=== PATIENT | female | born 1940 | race Caucasian/White ===

== ENCOUNTER 2018-01-03 16:05 | Emergency (ER) | payer OTHER ==
[2018-01-03 17:19] LABS: Urine Blood NEGATIVE (NEG); Urine Glucose NEGATIVE (NEG); Urine Protein 1+ (NEG); Urine Specific Gravity 1.015 (1.005-1.030)
[2018-01-03 17:49] LABS: Absolute Lymphocytes (CBC) 1.7 K/uL (0.7-4.9); Absolute Monocytes 0.8 K/uL (0.1-1.3); Basophils % 1.2 % (0-1.3); Eosinophils % 6.4 % (0-4.4); Hematocrit 34.1 % (36.0-45.0); Lymphocytes % 20.7 % (15.3-44.8); MCH 27.3 pg (27.0-35.0); MCV 85.7 fL (80-100); MPV 8.6 fL (7.6-11.3); Monocytes % 9.8 % (3.3-12.3); RBC Red Blood Cell Count 3.98 M/uL (3.86-4.86)
[2018-01-03 17:51] LABS: Potassium 4.4 mEq/L (3.6-5.0)
[2018-01-03 17:52] LABS: Protime INR 1.01
--- NOTE | 2018-01-03 17:56 | RAD REPORT ---
EXAM DESCRIPTION: RAD - Chest Single View - 01/03/2018 5:37 pm CLINICAL HISTORY: Shortness of breath COMPARISON: 07/23/2017 FINDINGS: Portable technique limits examination quality. The lungs are underinflated but grossly clear. The heart is upper limit normal in size. No displaced fractures.Proximal left humerus hardware noted. IMPRESSION: No acute intrathoracic process suspected.
[2018-01-03 17:57] LABS: Albumin 3.8 g/dL (3.2-5.5); Bilirubin Direct 0.1 mg/dL (0-0.2); Bilirubin Total 0.9 mg/dL (0.3-1.2)
[2018-01-03 18:01] LABS: CKMB Creatine Kinase MB 2.2 ng/ml (0.3-4.0)
[2018-01-03 18:22] LABS: Arterial Blood Carboxyhemoglob 1.2 % (0-1.5); Blood Gas Oxyhemoglobin 91.8 % (94-97); Blood O2 Saturation 93.6 % (92-98.5)
[2018-01-03] MEDS ORDERED: ALBUTEROL 2.5 MG/3 ML NEB SOL ONE (18:26)
--- NOTE | 2018-01-03 19:05 | EKG ---
Test Date: 2018-01-03 Test Time: 17:42:54 [place] Edger: DAVEY MEASUREMENT RESULTS: Intervals: Rate: 53 MD: 250 QRSD: 114 QT: 480 QTc: 450 [place]orne: P: 65 MD: 250 QRS: -30 T: 14 INTERPRETIVE STATEMENTS: Sinus bradycardia with 1st degree AV block Left axis deviation Incomplete right bundle branch block Cannot rule out Anterior infarct, age undetermined Abnormal ECG Compared to ECG 10/02/2017 15:08:57 Incomplete right bundle-branch block now present Myocardial infarct finding now present Sinus rhythm no longer present Left ventricular hypertrophy no longer present Electronically Signed On 01-03-18 19:05:01 CDT by Sumanth Lucero
[2018-01-03] MEDS ORDERED: NA CHLORIDE 0.9% 500 ML ONE (19:45)
--- NOTE | 2018-01-03 20:19 | RAD REPORT ---
EXAM DESCRIPTION: CT - Chest For Pe Angio - 01/03/2018 8:04 pm CLINICAL HISTORY: Chest pain. Shortness of breath COMPARISON: 07/23/2017, 11/19/2011 TECHNIQUE: CT angiogram of the pulmonary arteries was performed with MIP. All CT scans are performed using dose optimization technique as appropriate and may include automated exposure control or mA/KV adjustment according to patient size. FINDINGS: No evidence of pulmonary thromboembolism. No acute aortic finding demonstrated. Moderate cardiomegaly is seen. The lungs are underinflated with subsegmental atelectasis both lung bases. No focal pulmonary infiltr ate suspected. No significant pericardial or pleural fluid. Hardware is present in the proximal left humerus. No acute fractures seen. IMPRESSION: No evidence of pulmonary thromboembolism. Underinflated lungs with subsegmental atelectasis in the lung bases.
[2018-01-03] MEDS ORDERED: FUROSEMIDE 20 MG/ 2ML VIAL ONE (21:24)
--- NOTE | 2018-01-03 22:37 | EDPHYS ---
Physician Documentation [facility] Name: Radha Bentley Age: 77 yrs Sex: Female : 1940 Arrival Date: 01/03/2018 Time: 16:08 Bed 27 Private MD: Villa Mann ED Physician Ady Cuellar HPI: 01/03 19:06 This 77 yrs old Female presents to ER via Ambulatory with complaints of snw Breathing Difficulty. 19:06 The patient has shortness of breath at rest, with light activity. Onset: The snw symptoms/episode began/occurred gradually, 2 week(s) ago, and became worse and became persistent. Duration: The symptoms are continuous. The patient's shortness of breath is aggravated by light activity. Associated signs and symptoms: Pertinent positives: lower extremity edema, HARDY, wheezing. Severity of symptoms: At their worst the symptoms were moderate. The patient has not experienced similar symptoms in the past. The patient has been recently seen by a physician: the patient's primary care provider, Dr. Mann with similar presenting complaints, taking HCTZ, continued s/s. Historical: - Allergies: 16:13 Avelox; hj 16:13 Band-aid adhesive; hj - Home Meds: 16:13 amlodipine 5 mg tab 1 tab once daily [Active]; donepezil 10 mg Oral tab 1 tab once hj daily [Active]; escitalopram oxalate 20 mg Oral tab 1 tab once daily [Active]; fenofibrate 150 mg Oral cap 1 cap once daily [Active]; levothyroxine 125 mcg tab 1 tab once daily [Active]; lovastatin 20 mg Oral tab 1 tab once daily [Active]; metoprolol tartrate 50 mg Oral tab once daily [Active]; omeprazole 40 mg Oral cpDR 1 cap once daily [Active]; ropinirole 2 mg Oral tab 1 tab twice a day [Active]; 16:13 Hydrochlorothiazide Oral [Active]; hj - PMHx: 16:13 Diverticulitis; Heart Murmur; Hyperlipidemia; Hypertension; Hypothyroidism; Pneumonia; hj - PSHx: 16:13 Hysterectomy; Knee surgery; shoulder surgery; Cholecystectomy; Appendectomy; breast hj reduction; - Immunization history:: Adult Immunizations up to date. - Social history:: Smoking status: Patient/guardian denies using tobacco, never smoked. ROS: 17:40 Constitutional: Negative for fever, chills, and weight loss, Eyes: Negative for injury, snw pain, redness, and discharge, ENT: Negative for injury, pain, and discharge, Neck: Negative for injury, pain, and swelling, Cardiovascular: Negative for chest pain, palpitations, and edema. 17:40 Back: Negative for injury and pain, : Negative for injury, bleeding, discharge, and swelling, MS/Extremity: Negative for injury and deformity, + edema Skin: Negative for injury, rash, and discoloration, Neuro: Negative for headache, weakness, numbness, tingling, and seizure. 17:40 Respiratory: Positive for dyspnea on exertion, shortness of breath, wheezing. 17:40 Abdomen/GI: Positive for bloating. Exam: 17:40 Head/Face: Normocephalic, atraumatic. Eyes: Pupils equal round and reactive to light, snw extra-ocular motions intact. Lids and lashes normal. Conjunctiva and sclera are non-icteric and not injected. Cornea within normal limits. Periorbital areas with no swelling, redness, or edema. ENT: Nares patent. No nasal discharge, no septal abnormalities noted. Tympanic membranes are normal and external auditory canals are clear. Oropharynx with no redness, swelling, or masses, exudates, or evidence of obstruction, uvula midline. Mucous membranes moist. Neck: Trachea midline, no thyromegaly or masses palpated, and no cervical lymphadenopathy. Supple, full range of motion without nuchal rigidity, or vertebral point tenderness. No Meningismus. Chest/axilla: Normal chest wall appearance and motion. Nontender with no deformity. No lesions are appreciated. 17:40 Back: No spinal tenderness. No costovertebral tenderness. Full range of motion. Skin: Warm, dry with normal turgor. Normal color with no rashes, no lesions, and no evidence of cellulitis. MS/ Extremity: Pulses equal, no cyanosis. Neurovascular intact. Full, normal range of motion. Neuro: Awake and alert, GCS 15, oriented to person, place, time, and situation. Cranial nerves II-XII grossly intact. Motor strength 5/5 in all extremities. Sensory grossly intact. Cerebellar exam normal. Normal gait. 17:40 Constitutional: The patient appears alert, awake, restless, uncomfortable. 17:40 Cardiovascular: Rate: normal, Rhythm: regular, Pulses: no pulse deficits are appreciated, Edema: 3+ edema to level of left ankle, left foot, right ankle and right foot. 17:40 Respiratory: mild respiratory distress is noted, Respirations: shallow respirations, tachypnea, Breath sounds: rhonchi, wheezing: HARDY. 17:40 Abdomen/GI: Inspection: obese Bowel sounds: normal, Palpation: abdomen is soft and non-tender. Vital Signs: 16:14 BP 160 / 66; Pulse 57; Resp 18; Temp 97.5(TE); Pulse Ox 98% on R/A; Weight 95.25 kg; hj Height 4 ft. 11 in. (149.86 cm); Pain 4/10; 17:21 BP 173 / 76; Pulse 62; Resp 18; Pulse Ox 100% on 2 lpm NC; tl3 18:13 BP 154 / 65; Pulse 50; Resp 18; Pulse Ox 98% on R/A; tl3 18:55 BP 184 / 74; Pulse 56; Resp 18; Pulse Ox 100% on 2 lpm NC; tl3 20:31 BP 168 / 83; Pulse 52; Resp 18; Pulse Ox 100% on 2 lpm NC; tl3 21:01 BP 172 / 63; Pulse 61; Resp 18; Pulse Ox 98% on 2 lpm NC; tl3 22:36 BP 137 / 81; Pulse 64; Resp 18; Pulse Ox 98% ; tl3 16:14 Body Mass Index 42.41 (95.25 kg, 149.86 cm) hj 18:13 placed on RA for the last 5 minutes or so to obtain ABG tl3 MDM: 16:39 Patient medically screened. snw 22:34 Data reviewed: vital signs, nurses notes. Data interpreted: Pulse oximetry: on 2L(s) snw per nasal canula, is 99 %. Interpretation: normal. Counseling: I had a detailed discussion with the patient and/or guardian regarding: the historical points, exam findings, and any diagnostic results supporting the discharge/admit diagnosis, the presence of at least one elevated blood pressure reading (>120/80) during this emergency department visit, lab results, radiology results, the need for outpatient follow up, to return to the emergency department if symptoms worsen or persist or if there are any questions or concerns that arise at home. Response to treatment: the patient's symptoms have markedly improved after treatment, the patient's condition has returned to base line. Special discussion: Based on the patient's history, exam and DX evaluation, there is no indication for emergent intervention or inpatient TX. It is understood by the patient/guardian that if the SXs persist or worsen they need to return immediately for re-evaluation. Based on the history and exam findings, there is no indication for further emergent testing or inpatient evaluation. I discussed with the patient/guardian the need to see the primary care provider for further evaluation of the symptoms. Medical screen evaluation completed. [facility] emergency medical condition absent. 22:40 ED course: Ambulated around ED with tech, Spo2 remains 100%. Pt states she is feeling snw much better.. 01/03 17:12 Order name: Basic Metabolic Panel; Complete Time: 18:01 snw 01/03 17:12 Order name: BNP; Complete Time: 18:01 snw 01/03 17:12 Order name: CBC with Diff; Complete Time: 18:01 snw 01/03 17:12 Order name: Ckmb; Complete Time: 18:01 snw 01/03 17:12 Order name: CPK; Complete Time: 18:01 snw 01/03 17:12 Order name: LFT's; Complete Time: 18:01 snw 01/03 17:12 Order name: Magnesium; Complete Time: 18:01 snw 01/03 17:12 Order name: PT-INR; Complete Time: 18:01 snw 01/03 17:12 Order name: Ptt, Activated; Complete Time: 18:01 snw 01/03 17:12 Order name: Troponin (emerg Dept Use Only); Complete Time: 18:01 snw 01/03 17:12 Order name: XRAY Chest (1 view); Complete Time: 18:01 snw 01/03 17:15 Order name: Urine Dipstick--Ancillary (enter results) ag 01/03 17:16 Order name: Urine Dipstick-Ancillary; Complete Time: 17:54 EDMS 01/03 17:55 Order name: ABG; Complete Time: 18:58 snw 01/03 17:12 Order name: EKG; Complete Time: 17:13 snw 01/03 17:12 Order name: Cardiac monitoring; Complete Time: 17:24 snw 01/03 17:12 Order name: EKG - Nurse/Tech; Complete Time: 17:24 snw 01/03 17:12 Order name: IV Saline Lock; Complete Time: 17:24 snw 01/03 17:12 Order name: Labs collected and sent; Complete Time: 17:24 snw 01/03 17:12 Order name: O2 Per Protocol; Complete Time: 17:24 snw 01/03 17:12 Order name: O2 Sat Monitoring; Complete Time: 17:24 snw 01/03 17:12 Order name: Urine Dipstick-Ancillary (obtain specimen); Complete Time: 17:25 snw 01/03 19:26 Order name: CT Chest For PE Angio; Complete Time: 20:26 snw 01/03 21:44 Order name: Misc. Order: ambulate with pt in hallway with pulse ox reading; Complete snw Time: 22:13 Administered Medications: 18:12 Drug: Albuterol 2.5 mg Route: Inhalation; tl3 18:56 Drug: Albuterol 2.5 mg Route: Inhalation; tl3 18:56 Follow up: Response: No adverse reaction tl3 19:32 Drug: Albuterol 2.5 mg Route: Inhalation; tl3 21:07 Follow up: Response: No adverse reaction tl3 21:07 Follow up: Response: No adverse reaction tl3 19:32 Drug: NS 0.9% 500 ml Volume: 500 ml; Route: IV; Rate: 1 bolus; Site: left wrist; tl3 Delivery: Primary tubing; 21:15 Follow up: IV Status: Completed infusion; IV Intake: 500ml tl3 21:06 Drug: Lasix 20 mg Route: IVP; Site: right wrist; tl3 23:12 Follow up: Response: No adverse reaction tl3 Disposition: 01/04 10:37 Co-signature as Attending Physician, Ady Cuellar MD I agree with the assessment and art plan of care. Disposition: 01/03/18 22:36 Discharged to Home. Impression: Fluid overload, Dyspnea, unspecified. - Condition is Stable. - Discharge Instructions: Shortness of Breath. - Prescriptions for Lasix 20 mg Oral Tablet - take 1 tablet by ORAL route 2 times per day; 6 tablet. Albuterol Sulfate 90 mcg/actuation - inhale 1-2 puff by INHALATION route every 4-6 hours; 1 Inhaler. - Medication Reconciliation Form, Thank You Letter, Antibiotic Education, Prescription Opioid Use form. - Follow up: Villa Mann MD; When: 2 - 3 days; Reason: Recheck today's complaints, Continuance of care, Re-evaluation by your physician. Follow up: Emergency Department; When: As needed; Reason: Trouble breathing, Worsening of condition. - Notes: Stop HCTZ. Albuterol 2 puffs every four hours x 1 week. Take Lasix in am and afternoon as directed. Follow up with Dr. Mann early next week. Return to ER for any worsening symptoms. Signatures: Dispatcher [employer] EDMS Ady Cuellar MD MD cha Therrien, Shelly, PLANT BREEDER SCIENTIST-C PLANT BREEDER SCIENTIST-Csnw Fernando Page, RN RN Dagmar Alva RN RN tl3
--- NOTE | 2018-01-03 22:37 | ER ---
Nurse's Notes [facility] Name: Radha Bentley Age: 77 yrs Sex: Female : 1940 Arrival Date: 01/03/2018 Time: 16:08 Bed 27 Private MD: Villa Mann Diagnosis: Fluid overload;Dyspnea, unspecified Presentation: 01/03 16:11 Presenting complaint: Patient states: lyle been having trouble breathing since last week hj and my feet and legs are swollen; i feel i have wheezing;. Transition of care: patient was not received from another setting of care. Onset of symptoms was January 03, 2018. Care prior to arrival: None. 16:11 Method Of Arrival: Ambulatory hj 16:11 Acuity: VAIBHAV 3 hj Triage Assessment: 16:13 General: Appears in no apparent distress. uncomfortable, Behavior is calm, cooperative, hj appropriate for age. Pain: Complains of pain in right leg and left leg. Respiratory: Reports shortness of breath Onset: The symptoms/episode began/occurred the patient has moderate shortness of breath. Historical: - Allergies: 16:13 Avelox; hj 16:13 Band-aid adhesive; hj - Home Meds: 16:13 amlodipine 5 mg tab 1 tab once daily [Active]; donepezil 10 mg Oral tab 1 tab once hj daily [Active]; escitalopram oxalate 20 mg Oral tab 1 tab once daily [Active]; fenofibrate 150 mg Oral cap 1 cap once daily [Active]; levothyroxine 125 mcg tab 1 tab once daily [Active]; lovastatin 20 mg Oral tab 1 tab once daily [Active]; metoprolol tartrate 50 mg Oral tab once daily [Active]; omeprazole 40 mg Oral cpDR 1 cap once daily [Active]; ropinirole 2 mg Oral tab 1 tab twice a day [Active]; 16:13 Hydrochlorothiazide Oral [Active]; hj - PMHx: 16:13 Diverticulitis; Heart Murmur; Hyperlipidemia; Hypertension; Hypothyroidism; Pneumonia; hj - PSHx: 16:13 Hysterectomy; Knee surgery; shoulder surgery; Cholecystectomy; Appendectomy; breast hj reduction; - Immunization history:: Adult Immunizations up to date. - Social history:: Smoking status: Patient/guardian denies using tobacco, never smoked. Screenin:21 Abuse screen: Denies threats or abuse. Nutritional screening: No deficits noted. tl3 Tuberculosis screening: No symptoms or risk factors identified. Fall Risk None identified. Assessment: 16:14 Cardiovascular: Rhythm is. Respiratory: Airway is patent Respiratory effort is labored, hj Respiratory pattern is regular, symmetrical, 16:45 General: Appears distressed, uncomfortable, well groomed, well developed, well tl3 nourished, Behavior is calm, cooperative, appropriate for age. Pain: Complains of pain in right leg and left leg. Neuro: Level of Consciousness is awake, alert, obeys commands, Oriented to person, place, time, situation, Appropriate for age. Cardiovascular: Reports shortness of breath, Heart tones S1 S2 present Capillary refill < 3 seconds in bilateral fingers bilateral leg swelling . Respiratory: Airway is patent Trachea midline Respiratory effort is even, labored, Respiratory pattern is symmetrical, Breath sounds with wheezes bilaterally. the patient has moderate shortness of breath. GI: No signs and/or symptoms were reported involving the gastrointestinal system. : No signs and/or symptoms were reported regarding the genitourinary system. EENT: No signs and/or symptoms were reported regarding the EENT system. Derm: No signs and/or symptoms reported regarding the dermatologic system. Musculoskeletal: No signs and/or symptoms reported regarding the musculoskeletal system. 18:13 Reassessment: No changes from previously documented assessment. Patient and/or family tl3 updated on plan of care and expected duration. Pain level reassessed. Patient is alert, oriented x 3, equal unlabored respirations, skin warm/dry/pink. resp. at bedside to obtain blood gas. 18:55 Reassessment: No changes from previously documented assessment. Patient and/or family tl3 updated on plan of care and expected duration. Pain level reassessed. Patient is alert, oriented x 3, equal unlabored respirations, skin warm/dry/pink. pt ambulated to RR, started second neb. 19:58 Reassessment: pt in CT needed another IV started. tl3 20:31 Reassessment: No changes from previously documented assessment. Patient and/or family tl3 updated on plan of care and expected duration. Pain level reassessed. Patient is alert, oriented x 3, equal unlabored respirations, skin warm/dry/pink. pt was feeling short of breath after going to the restroom, audible wheezing noted. 21:01 Reassessment: No changes from previously documented assessment. Patient and/or family tl3 updated on plan of care and expected duration. Pain level reassessed. Patient is alert, oriented x 3, equal unlabored respirations, skin warm/dry/pink. pt ambulated to RR, SOB and wheezing upon returning to room. 21:31 Reassessment: pt up to restroom. tl3 22:36 Reassessment: No changes from previously documented assessment. Patient and/or family tl3 updated on plan of care and expected duration. Pain level reassessed. Patient is alert, oriented x 3, equal unlabored respirations, skin warm/dry/pink. pt ambulated around unit, pulse ox stayed at 98-100%. Vital Signs: 16:14 BP 160 / 66; Pulse 57; Resp 18; Temp 97.5(TE); Pulse Ox 98% on R/A; Weight 95.25 kg; hj Height 4 ft. 11 in. (149.86 cm); Pain 4/10; 17:21 BP 173 / 76; Pulse 62; Resp 18; Pulse Ox 100% on 2 lpm NC; tl3 18:13 BP 154 / 65; Pulse 50; Resp 18; Pulse Ox 98% on R/A; tl3 18:55 BP 184 / 74; Pulse 56; Resp 18; Pulse Ox 100% on 2 lpm NC; tl3 20:31 BP 168 / 83; Pulse 52; Resp 18; Pulse Ox 100% on 2 lpm NC; tl3 21:01 BP 172 / 63; Pulse 61; Resp 18; Pulse Ox 98% on 2 lpm NC; tl3 22:36 BP 137 / 81; Pulse 64; Resp 18; Pulse Ox 98% ; tl3 16:14 Body Mass Index 42.41 (95.25 kg, 149.86 cm) hj 18:13 placed on RA for the last 5 minutes or so to obtain ABG tl3 ED Course: 16:08 Patient arrived in ED. mr 16:09 Villa Mann MD is Private Physician. mr 16:11 Triage completed. hj 16:14 Arm band placed on left wrist. hj 16:39 Mariela Mayorga FNP-C [facility]. snw 16:39 Ady Cuellar MD is Attending Physician. snw 17:16 Dagmar Ramirez, RN is Primary Nurse. tl3 17:21 Awaiting lab results, Awaiting for x-ray. tl3 17:21 Patient has correct armband on for positive identification. Placed in gown. Bed in low tl3 position. Call light in reach. Side rails up X2. Door closed. Lights dimmed. Warm blanket given. 17:21 No provider procedures requiring assistance completed. Inserted saline lock: 22 gauge tl3 in right wrist, using aseptic technique. Oxygen administration via nasal cannula \T\ 2L/min. 17:25 Urine Dipstick--Ancillary (enter results) Sent. tl3 17:25 XRAY Chest (1 view) Sent. tl3 17:35 X-ray completed. Portable x-ray completed in exam room. Patient tolerated procedure ag1 well. 17:36 XRAY Chest (1 view) In Process Unspecified. EDMS 17:48 EKG done, by insulator technician. reviewed by Mariela BORGES. at1 19:[address] via wheelchair. tl3 19:42 classroom monitor on. Pulse ox on. NIBP on. tl3 19:58 Inserted saline lock: 22 gauge in left antecubital area, using aseptic technique. tl3 20:04 CT Chest For PE Angio In Process Unspecified. EDMS 22:36 Villa Mann MD is Referral Physician. snw 23:10 IV discontinued, intact, bleeding controlled, No redness/swelling at site. Pressure tl3 dressing applied. Administered Medications: 18:12 Drug: Albuterol 2.5 mg Route: Inhalation; tl3 18:56 Drug: Albuterol 2.5 mg Route: Inhalation; tl3 18:56 Follow up: Response: No adverse reaction tl3 19:32 Drug: Albuterol 2.5 mg Route: Inhalation; tl3 21:07 Follow up: Response: No adverse reaction tl3 21:07 Follow up: Response: No adverse reaction tl3 19:32 Drug: NS 0.9% 500 ml Volume: 500 ml; Route: IV; Rate: 1 bolus; Site: left wrist; tl3 Delivery: Primary tubing; 21:15 Follow up: IV Status: Completed infusion; IV Intake: 500ml tl3 21:06 Drug: Lasix 20 mg Route: IVP; Site: right wrist; tl3 23:12 Follow up: Response: No adverse reaction tl3 Intake: 21:15 IV: 500ml; Total: 500ml. tl3 Outcome: 22:36 Discharge ordered by MD. hanley 23:10 Discharged to home ambulatory. tl3 23:10 Condition: good 23:10 Discharge instructions given to patient, Instructed on discharge instructions, follow up and referral plans. medication usage, Demonstrated understanding of instructions, follow-up care, medications, Prescriptions given X 1. 23:12 Patient left the ED. tl3 Signatures: Dispatcher [employer] EDMS Mariela Mayorga, REGRINDER-C REGRINDER-Csnw Deanna Bess Alison diaz, emergency response officer EKG Tat1 Bernadine Patel ag1 Fernando Page RN RN Dagmar Alva, ALAN RN tl3 Corrections: (The following items were deleted from the chart) 16:16 16:14 Respiratory: Airway is patent Respiratory effort is labored, Respiratory pattern hj is regular, symmetrical, Breath sounds with wheezes hj 16:16 16:14 Pulse 57bpm; Resp 18bpm; Pulse Ox 98% RA; Temp 97.5F Temporal; 95.25 kg; Height 4 hj ft. 11 in.; BMI: 42.4; Pain 4/10; hj
[2018-01-03 23:18] VITALS: TEMP 97.5
[2018-01-03 23:24] VITALS: O2SAT 98
[2018-01-03 23:25] VITALS: BP 137/81
== END 2018-01-03 23:12 | disposition home or self-care (01) ==
LOC: ER 16:05
DX: E87.70 Fluid overload, unspecified (principal); I10 Essential (primary) hypertension; E78.5 Hyperlipidemia, unspecified; E03.9 Hypothyroidism, unspecified; R01.1 Cardiac murmur, unspecified; Z88.8 Allergy status to other drugs, medicaments and biological substances; Z91.048 Other nonmedicinal substance allergy status
CPT/HCPCS: 36415; 71045; 71275; 80048; 80076; 81003; 82550; 82553; 82805; 83735; 83880; 84484; 85025; 85610; 85730; 93005; 96361; 96374; 99285; J1940; Q9967

== ENCOUNTER 2018-08-12 16:29 | Emergency (ER) | payer OTHER ==
[2018-08-12] MEDS ORDERED: NA CHLORIDE 0.9% 1,000 ML ONE (17:24)
[2018-08-12 17:35] LABS: Absolute Lymphocytes (CBC) 1.2 K/uL (0.7-4.9); Absolute Monocytes 0.6 K/uL (0.1-1.3); Absolute Neutrophil 5.3 K/uL (1.8-8.0); Basophils % 0.3 % (0-1.3); Eosinophils % 5.2 % (0-4.4); Hematocrit 36.7 % (36.0-45.0); Lymphocytes % 16.4 % (15.3-44.8); MCH 28.4 pg (27.0-35.0); MCV 86.8 fL (80-100); MPV 7.9 fL (7.6-11.3); Monocytes % 8.3 % (3.3-12.3); RBC Red Blood Cell Count 4.22 M/uL (3.86-4.86)
[2018-08-12 17:36] LABS: Protime INR 0.94
--- NOTE | 2018-08-12 17:40 | RAD REPORT ---
EXAM DESCRIPTION: Vishnu Single View08/12/2018 5:29 pm CLINICAL HISTORY: cough COMPARISON: December 2017 FINDINGS: The lungs appear clear of acute infiltrate. The heart is normal size IMPRESSION: No acute abnormalities displayed
[2018-08-12 17:55] LABS: ALT/SGPT 26 U/L (12-78); AST/SGOT 21 U/L (15-37); Albumin 3.3 g/dL (3.4-5.0); Alkaline Phosphatase 85 U/L (45-117); BUN Blood Urea Nitrogen 17 mg/dL (7-18); Bicarbonate 28 mmol/L (21-32); Bilirubin Direct 0.1 mg/dL (0-0.2); Bilirubin Total 0.4 mg/dL (0.2-1.0); Glucose Level 95 mg/dL (74-106); Lipase 156 U/L (73-393); Magnesium 2.3 mg/dL (1.8-2.4); NT PRO-BNP 864 pg/mL (<450); Potassium 3.9 mmol/L (3.5-5.1); Protein, Total 6.8 g/dL (6.4-8.2); Sodium Level 144 mmol/L (136-145); Troponin (Emerg Dept Use Only) < 0.02 ng/mL (0.0-0.045)
--- NOTE | 2018-08-12 19:48 | EDPHYS ---
Physician Documentation [facility] Name: Radha Bentley Age: 77 yrs Sex: Female : 1940 Arrival Date: 08/12/2018 Time: 16:32 Bed 8 Private MD: Villa Mann ED Physician Ady Cuellar HPI: 08/12 17:11 This 77 yrs old Female presents to ER via Wheelchair with complaints of art SHAKINESS,LIGHTHEADED. 17:11 shakey inside and outside. Onset: The symptoms/episode began/occurred 1 day(s) ago. art Severity of symptoms: At their worst the symptoms were very mild mild in the emergency department the symptoms are unchanged. Unable to obtain HPI due to. The patient has not experienced similar symptoms in the past. Historical: - Allergies: 16:42 Avelox; sv 16:42 Band-aid adhesive; sv - PMHx: 16:42 Diverticulitis; Hypothyroidism; Hypertension; Heart Murmur; Pneumonia; Hyperlipidemia; sv - PSHx: 16:42 Hysterectomy; Knee surgery; Cholecystectomy; Appendectomy; shoulder surgery; breast sv reduction; - Immunization history:: Flu vaccine is up to date. - Social history:: Smoking status: Patient/guardian denies using tobacco. - Ebola Screening: : No symptoms or risks identified at this time. - Family history:: not pertinent. ROS: 17:11 Constitutional: Negative for fever, chills, and weight loss, Eyes: Negative for injury, art pain, redness, and discharge, ENT: Negative for injury, pain, and discharge, Neck: Negative for injury, pain, and swelling, Cardiovascular: Negative for chest pain, palpitations, and edema, Respiratory: Negative for shortness of breath, cough, wheezing, and pleuritic chest pain, Abdomen/GI: Negative for abdominal pain, nausea, vomiting, diarrhea, and constipation, Back: Negative for injury and pain, : Negative for injury, bleeding, discharge, and swelling, MS/Extremity: Negative for injury and deformity, Skin: Negative for injury, rash, and discoloration, Psych: Negative for depression, anxiety, suicide ideation, homicidal ideation, and hallucinations, Allergy/Immunology: Negative for hives, rash, and allergies, Endocrine: Negative for neck swelling, polydipsia, polyuria, polyphagia, and marked weight changes, Hematologic/Lymphatic: Negative for swollen nodes, abnormal bleeding, and unusual bruising. 17:11 Neuro: Positive for weakness. Exam: 17:11 Constitutional: This is a well developed, well nourished patient who is awake, alert, art and in no acute distress. Head/Face: Normocephalic, atraumatic. Eyes: Pupils equal round and reactive to light, extra-ocular motions intact. Lids and lashes normal. Conjunctiva and sclera are non-icteric and not injected. Cornea within normal limits. Periorbital areas with no swelling, redness, or edema. ENT: Nares patent. No nasal discharge, no septal abnormalities noted. Tympanic membranes are normal and external auditory canals are clear. Oropharynx with no redness, swelling, or masses, exudates, or evidence of obstruction, uvula midline. Mucous membranes moist. Neck: Trachea midline, no thyromegaly or masses palpated, and no cervical lymphadenopathy. Supple, full range of motion without nuchal rigidity, or vertebral point tenderness. No Meningismus. Chest/axilla: Normal chest wall appearance and motion. Nontender with no deformity. No lesions are appreciated. Cardiovascular: Regular rate and rhythm with a normal S1 and S2. No gallops, murmurs, or rubs. Normal PMI, no JVD. No pulse deficits. Respiratory: Lungs have equal breath sounds bilaterally, clear to auscultation and percussion. No rales, rhonchi or wheezes noted. No increased work of breathing, no retractions or nasal flaring. Abdomen/GI: Soft, non-tender, with normal bowel sounds. No distension or tympany. No guarding or rebound. No evidence of tenderness throughout. Back: No spinal tenderness. No costovertebral tenderness. Full range of motion. Skin: Warm, dry with normal turgor. Normal color with no rashes, no lesions, and no evidence of cellulitis. MS/ Extremity: Pulses equal, no cyanosis. Neurovascular intact. Full, normal range of motion. Neuro: Awake and alert, GCS 15, oriented to person, place, time, and situation. Cranial nerves II-XII grossly intact. Motor strength 5/5 in all extremities. Sensory grossly intact. Cerebellar exam normal. Normal gait. Psych: Awake, alert, with orientation to person, place and time. Behavior, mood, and affect are within normal limits. 19:47 Musculoskeletal/extremity: DVT Exam: No signs of deep vein thrombosis. no pain, no art swelling, no tenderness, negative Homans' sign noted on exam, no appreciated bluish discoloration, no erythema, no increased warmth. Vital Signs: 16:43 BP 144 / 92; Pulse 69; Resp 18; Temp 98.9; Pulse Ox 95% ; Weight 90.72 kg; Height 4 ft. sv 11 in. (149.86 cm); Pain 0/10; 18:19 BP 157 / 71; Pulse 66; Resp 17; Pulse Ox 100% on R/A; hb 19:20 BP 136 / 68 Supine; Pulse 66; jd3 19:22 BP 155 / 68 Sitting; Pulse 68; jd3 19:24 BP 146 / 77 Standing; Pulse 67; Resp 19 S; Pulse Ox 95% on R/A; jd3 16:43 Body Mass Index 40.39 (90.72 kg, 149.86 cm) sv MDM: 16:47 Patient medically screened. [facility] 17:13 Data reviewed: vital signs, nurses notes, lab test result(s), EKG, radiologic studies, [facility] plain films. 08/12 17:11 Order name: Basic Metabolic Panel; Complete Time: 19:27 [facility] 08/12 17:11 Order name: CBC with Diff; Complete Time: 19:27 [facility] 08/12 17:11 Order name: LFT's; Complete Time: 19:27 [facility] 08/12 17:11 Order name: Magnesium; Complete Time: 19:27 [facility] 08/12 17:11 Order name: NT PRO-BNP; Complete Time: 19:27 [facility] 08/12 17:11 Order name: PT-INR; Complete Time: 19:27 [facility] 08/12 17:11 Order name: Troponin (emerg Dept Use Only); Complete Time: 19:27 [facility] 08/12 17:11 Order name: XRAY Chest (1 view); Complete Time: 19:27 [facility] 08/12 17:11 Order name: EKG; Complete Time: 17:12 [facility] 08/12 17:11 Order name: Lipase; Complete Time: 19:27 [facility] 08/12 17:11 Order name: Urine Culture [facility] 08/12 20:06 Order name: Urine Dipstick--Ancillary (enter results) em1 08/12 17:11 Order name: Cardiac monitoring; Complete Time: 17:30 [facility] 08/12 17:11 Order name: EKG - Nurse/Tech; Complete Time: 17:30 [facility] 08/12 17:11 Order name: IV Saline Lock; Complete Time: 17:30 [facility] 08/12 17:11 Order name: Labs collected and sent; Complete Time: 17:30 [facility] 08/12 17:11 Order name: O2 Per Protocol; Complete Time: 17:30 [facility] 08/12 17:11 Order name: O2 Sat Monitoring; Complete Time: 17:30 [facility] 08/12 17:11 Order name: Urine Dipstick-Ancillary (obtain specimen); Complete Time: 20:05 [facility] 08/12 17:13 Order name: Orthostatics; Complete Time: 19:27 [facility] Administered Medications: 17:29 Drug: NS 0.9% 500 ml Route: IV; Rate: bolus; Site: right forearm; bp 20:26 Follow up: IV Status: Completed infusion ak1 17:29 Drug: NS 0.9% 1000 ml Route: IV; Rate: 125 ml/hr; Site: right forearm; bp 20:26 Follow up: IV Status: Completed infusion ak1 Disposition: 08/12/18 19:48 Discharged to Home. Impression: Weakness. - Condition is Stable. - Discharge Instructions: Weakness, Fatigue, Weakness, [id number]. - Medication Reconciliation Form, Thank You Letter, Antibiotic Education, Prescription Opioid Use form. - Follow up: Villa Mann MD; When: 2 - 3 days; Reason: Recheck today's complaints, Continuance of care, Re-evaluation by your physician. - Problem is new. - Symptoms have improved. Signatures: Dispatcher [employer] Stefania Cummings RN Ady Arvizu MD MD cha Krenek, Amber, RN RN ak1 Anatoly Castillo RN RN bp Corrections: (The following items were deleted from the chart) 20:30 19:48 08/12/2018 19:48 Discharged to Home. Impression: Weakness. Condition is Stable. ak1 Forms are Medication Reconciliation Form, Thank You Letter, Antibiotic Education, Prescription Opioid Use. Follow up: Villa Mann; When: 2 - 3 days; Reason: Recheck today's complaints, Continuance of care, Re-evaluation by your physician. Problem is new. Symptoms have improved. [facility]
--- NOTE | 2018-08-12 19:48 | ER ---
Nurse's Notes [facility] Name: Radha Bentley Age: 77 yrs Sex: Female : 1940 Arrival Date: 08/12/2018 Time: 16:32 Bed 8 Private MD: Villa Mann Diagnosis: Weakness Presentation: 08/12 16:41 Presenting complaint: Patient states: shaking and lightheaded x 2 days. Transition of sv care: patient was not received from another setting of care. Onset of symptoms was August 10, 2018. Care prior to arrival: None. 16:41 Method Of Arrival: Wheelchair sv 16:41 Acuity: VAIBHAV 3 sv 20:05 Risk Assessment: Do you want to hurt yourself or someone else? Patient reports no ak1 desire to harm self or others. Initial Sepsis Screen: Does the patient meet any 2 criteria? No. Patient's initial sepsis screen is negative. Does the patient have a suspected source of infection? No. Patient's initial sepsis screen is negative. Historical: - Allergies: 16:42 Avelox; sv 16:42 Band-aid adhesive; sv - PMHx: 16:42 Diverticulitis; Hypothyroidism; Hypertension; Heart Murmur; Pneumonia; Hyperlipidemia; sv - PSHx: 16:42 Hysterectomy; Knee surgery; Cholecystectomy; Appendectomy; shoulder surgery; breast sv reduction; - Immunization history:: Flu vaccine is up to date. - Social history:: Smoking status: Patient/guardian denies using tobacco. - Ebola Screening: : No symptoms or risks identified at this time. - Family history:: not pertinent. Screenin:33 Abuse screen: Denies threats or abuse. Denies injuries from another. Nutritional bp screening: No deficits noted. Tuberculosis screening: No symptoms or risk factors identified. Fall Risk None identified. Assessment: 17:31 General: Appears in no apparent distress. comfortable, Behavior is cooperative, bp appropriate for age, anxious. Pain: Denies pain. Neuro: Level of Consciousness is awake, alert, obeys commands, Oriented to person, place, time, situation, Appropriate for age. Cardiovascular: Rhythm is sinus rhythm. Respiratory: Airway is patent Respiratory effort is even, unlabored, Respiratory pattern is regular, symmetrical. GI: No signs and/or symptoms were reported involving the gastrointestinal system. : No signs and/or symptoms were reported regarding the genitourinary system. EENT: No deficits noted. Derm: No deficits noted. Musculoskeletal: Circulation, motion, and sensation intact. Range of motion: intact in all extremities. 18:19 Reassessment: Patient appears in no apparent distress at this time. No changes from hb previously documented assessment. Patient and/or family updated on plan of care and expected duration. Pain level reassessed. Patient is alert, oriented x 3, equal unlabored respirations, skin warm/dry/pink. 19:24 Reassessment: Patient appears in no apparent distress at this time. No changes from jd3 previously documented assessment. Patient and/or family updated on plan of care and expected duration. Pain level reassessed. Patient is alert, oriented x 3, equal unlabored respirations, skin warm/dry/pink. 20:25 Reassessment: pt ambulated to restroom with steady gait. ak1 Vital Signs: 16:43 BP 144 / 92; Pulse 69; Resp 18; Temp 98.9; Pulse Ox 95% ; Weight 90.72 kg; Height 4 ft. sv 11 in. (149.86 cm); Pain 0/10; 18:19 BP 157 / 71; Pulse 66; Resp 17; Pulse Ox 100% on R/A; hb 19:20 BP 136 / 68 Supine; Pulse 66; jd3 19:22 BP 155 / 68 Sitting; Pulse 68; jd3 19:24 BP 146 / 77 Standing; Pulse 67; Resp 19 S; Pulse Ox 95% on R/A; jd3 16:43 Body Mass Index 40.39 (90.72 kg, 149.86 cm) sv ED Course: 16:32 Patient arrived in ED. sb2 16:33 Villa Mann MD is Private Physician. sb2 16:42 Triage completed. sv 16:43 Arm band placed on. sv 16:45 Anatoly Castillo, ALAN is Primary Nurse. bp 16:47 Ady Cuellar MD is Attending Physician. art 17:24 EKG done, by vein access technician. reviewed by Ady Cuellar MD. sm3 17:27 X-ray completed. Portable x-ray completed in exam room. Patient tolerated procedure jb2 well. 17:28 XRAY Chest (1 view) In Process Unspecified. EDMS 17:30 Inserted saline lock: 22 gauge in right forearm, using aseptic technique. Blood bp collected. 17:33 Patient has correct armband on for positive identification. Placed in gown. Bed in low bp position. Call light in reach. Side rails up X2. 19:47 Villa Mann MD is Referral Physician. [facility] 20:05 No provider procedures requiring assistance completed. IV discontinued, intact, ak1 bleeding controlled, No redness/swelling at site. Pressure dressing applied. Administered Medications: 17:29 Drug: NS 0.9% 500 ml Route: IV; Rate: bolus; Site: right forearm; bp 20:26 Follow up: IV Status: Completed infusion ak1 17:29 Drug: NS 0.9% 1000 ml Route: IV; Rate: 125 ml/hr; Site: right forearm; bp 20:26 Follow up: IV Status: Completed infusion ak1 Outcome: 19:48 Discharge ordered by . [facility] 20:06 Discharged to home ambulatory. ak1 20:06 Condition: good 20:06 Discharge instructions given to patient, Instructed on discharge instructions, follow up and referral plans. Demonstrated understanding of instructions, follow-up care. 20:30 Patient left the ED. ak1 Signatures: Dispatcher [employer] EDStefania Cummings RN Ady Arvizu MD MD cha Buechter, Jesse jb2 Suzan Romero RN RN ak1 Mesha Herrera RN RN hb Davies, Jonathon, RN RN jd3 Peltier, Brian, RN RN bp Billeau, Sheri sb2 Elissa Ely sm3
[2018-08-12 20:30] LABS: Urine Blood NEGATIVE (NEG); Urine Glucose NEGATIVE (NEG); Urine Protein 2+ (NEG); Urine Specific Gravity >1.030 (1.005-1.030)
[2018-08-12 21:12] VITALS: TEMP 98.9
[2018-08-12 21:24] VITALS: BP 146/77; O2SAT 95
--- NOTE | 2018-08-13 07:15 | EKG ---
Test Date: 2018-08-12 Test Time: 17:20:01 Pony Ride Attendant: FOUZIA MEASUREMENT RESULTS: Intervals: Rate: 68 SD: 238 QRSD: 114 QT: 432 QTc: 459 Erskine: P: 61 SD: 238 QRS: -26 T: 22 INTERPRETIVE STATEMENTS: Sinus rhythm with 1st degree AV block Voltage criteria for left ventricular hypertrophy Abnormal ECG Compared to ECG 01/03/2018 17:42:54 Left ventricular hypertrophy now present Sinus bradycardia no longer present Left-axis deviation no longer present Incomplete right bundle-branch block no longer present Myocardial infarct finding no longer present Electronically Signed On 08-13-18 07:14:09 NEUROLOGY TECH by Sumanth Lucero
== END 2018-08-12 20:30 | disposition home or self-care (01) ==
LOC: ER 16:29
DX: R53.1 Weakness (principal); R94.31 Abnormal electrocardiogram [ECG] [EKG]; I44.0 Atrioventricular block, first degree; I51.7 Cardiomegaly; E03.9 Hypothyroidism, unspecified; I10 Essential (primary) hypertension; E78.5 Hyperlipidemia, unspecified
CPT/HCPCS: 36415; 71045; 80048; 80076; 81003; 83690; 83735; 83880; 84484; 85025; 85610; 87086; 87088; 93005; 96360; 96361; 99284; J7030

== ENCOUNTER 2018-08-18 00:05 | Emergency (ER) | payer OTHER ==
[2018-08-18] MEDS ORDERED: HYDROCODONE/APAP 5/325 MG TAB ONE (01:48)
--- NOTE | 2018-08-18 02:59 | EDPHYS ---
Physician Documentation [facility] Name: Radha Bentley Age: 77 yrs Sex: Female : 1940 Arrival Date: 08/18/2018 Time: 00:07 Bed 16 Private MD: Villa Mann ED Physician Mars Hyatt HPI: 08/18 00:45 This 77 yrs old Female presents to ER via Wheelchair with complaints of Leg cp Injury, Ankle Injury, Ankle Swelling. 00:45 The patient presents with decreased range of motion, an injury, pain, that is acute. cp The complaints affect the right ankle. Context: The problem was sustained at home, resulted from the patient falling, the patient is not able to bear weight, must have assistance, Problem is a result from a previous injury: No. Onset: The symptoms/episode began/occurred today. 00:45 Associated signs and symptoms: Pertinent negatives numbness, weakness. cp Historical: - Allergies: 00:20 Avelox; bb 00:20 Band-aid adhesive; bb - Home Meds: 00:20 amlodipine 5 mg tab 1 tab once daily [Active]; donepezil 10 mg Oral tab 1 tab once bb daily [Active]; escitalopram oxalate 20 mg Oral tab 1 tab once daily [Active]; fenofibrate 150 mg Oral cap 1 cap once daily [Active]; Hydrochlorothiazide Oral [Active]; levothyroxine 125 mcg tab 1 tab once daily [Active]; lovastatin 20 mg Oral tab 1 tab once daily [Active]; metoprolol tartrate 50 mg Oral tab once daily [Active]; omeprazole 40 mg Oral cpDR 1 cap once daily [Active]; ropinirole 2 mg Oral tab 1 tab twice a day [Active]; - PMHx: 00:20 Diverticulitis; Heart Murmur; Hyperlipidemia; Hypertension; Hypothyroidism; Pneumonia; bb - PSHx: 00:20 Hysterectomy; Knee surgery; Cholecystectomy; Appendectomy; shoulder surgery; breast bb reduction; - Immunization history:: Adult Immunizations up to date. - Social history:: Smoking status: Patient uses tobacco products, smokes one-half pack cigarettes per day. - Ebola Screening: : No symptoms or risks identified at this time. ROS: 01:00 Constitutional: Negative for body aches, chills, fever, poor PO intake. cp 01:00 Eyes: Negative for injury, pain, redness, and discharge. cp 01:00 ENT: Negative for drainage from ear(s), ear pain, sore throat, difficulty swallowing, difficulty handling secretions. 01:00 Cardiovascular: Negative for chest pain, palpitations. 01:00 Respiratory: Negative for cough, shortness of breath, wheezing. 01:00 Abdomen/GI: Negative for abdominal pain, vomiting, diarrhea, constipation, black/tarry stool, rectal bleeding. 01:00 Back: Negative for pain at rest, pain with movement, radiated pain. 01:00 MS/extremity: Positive for injury or acute deformity, decreased range of motion, pain, swelling, tenderness, of the right ankle, Negative for paresthesias. 01:00 Neuro: Negative for altered mental status, headache, loss of consciousness, numbness, syncope, near syncope, weakness. 01:00 All other systems are negative. Exam: 01:08 Head/Face: Normocephalic, atraumatic. cp 01:08 Constitutional: The patient appears in no acute distress, alert, awake, non-diaphoretic, non-toxic, well developed, well nourished, obese, uncomfortable. 01:08 Eyes: Periorbital structures: appear normal, Pupils: equal, round, and reactive to light and accomodation, Extraocular movements: intact throughout, Conjunctiva: normal, no exudate, no injection, Lids and lashes: appear normal, bilaterally. 01:08 ENT: External ear(s): are unremarkable, Nose: is normal, Mouth: Lips: moist, Oral mucosa: moist, Posterior pharynx: is normal, airway is patent, no erythema, no exudate. 01:08 Neck: C-spine: vertebral tenderness, is not appreciated, crepitus, is not appreciated, ROM/movement: is normal, is supple, without pain, no range of motions limitations, no nuchal rigidity. 01:08 Chest/axilla: Inspection: normal, Palpation: is normal, no crepitus, no tenderness. 01:08 Cardiovascular: Rate: normal, Rhythm: regular, Edema: is not appreciated. 01:08 Respiratory: the patient does not display signs of respiratory distress, Respirations: normal, no use of accessory muscles, no retractions, no splinting, no tachypnea, labored breathing, is not present, Breath sounds: are clear throughout, no decreased breath sounds, no stridor, no wheezing. 01:08 Abdomen/GI: Inspection: abdomen appears normal, Bowel sounds: active, all quadrants, Palpation: abdomen is soft and non-tender, in all quadrants. 01:08 Back: pain, is absent, ROM is normal, vertebral tenderness, is not appreciated. 01:08 Musculoskeletal/extremity: Extremities: grossly normal except: noted in the right lower tib/fib: deformity, pain, swelling, tenderness, noted in the right knee and right hip and right foot and left foot: pain, tenderness, Pulses: noted to be 2+ in the right radial artery, right dorsalis pedis artery, left radial artery and left dorsalis pedis artery. 01:08 Neuro: Orientation: to person, place \T\ time. Mentation: is normal, Cerebellar function: is grossly normal, Motor: moves all fours, Sensation: no obvious gross deficits. Vital Signs: 00:20 BP 170 / 84; Pulse 71; Resp 18; Temp 99.1(O); Pulse Ox 94% on R/A; Weight 90.72 kg (R); bb Height 4 ft. 11 in. (149.86 cm); Pain 4/10; 01:43 BP 174 / 85; Pulse 72; Resp 16; Pulse Ox 96% on R/A; jb4 02:00 BP 168 / 87; Pulse 68; Resp 16; Pulse Ox 96% on R/A; jb4 03:40 BP 186 / 89; Pulse 64; Resp 16; Pulse Ox 100% on R/A; jb4 00:20 Body Mass Index 40.39 (90.72 kg, 149.86 cm) bb Procedures: 03:45 Splinting: Splint applied to right ankle using Orthoglass splint, applied by tech. cp Examined by me, post splint application: neurovascular intact, Patient tolerated well. MDM: 00:27 Patient medically screened. cp 02:00 Differential diagnosis: dislocation, open fracture, closed fracture. cp 02:56 Data reviewed: vital signs, nurses notes, radiologic studies, plain films. Test cp interpretation: by ED physician or midlevel provider: plain radiologic studies. Response to treatment: the patient's symptoms have markedly improved after treatment, and as a result, I will discharge patient. 08/18 00:39 Order name: XRAY Foot LEFT 3 View cp 08/18 00:39 Order name: XRAY Foot RIGHT 3 View cp 08/18 00:39 Order name: XRAY Tib Fib RIGHT cp 08/18 00:39 Order name: XRAY Hip RIGHT 2 view cp 08/18 00:39 Order name: XRAY Pelvis cp 08/18 01:35 Order name: Ankle Right 3 View XRAY cp 08/18 02:15 Order name: Splint: short leg posterior with stirrup on right; Complete Time: 03:39 cp Administered Medications: 01:45 Drug: HYDROcodone-acetaminophen 5 mg-325 mg 1 tabs Route: PO; jb4 03:00 Follow up: Response: No adverse reaction; Pain is decreased jb4 03:45 Drug: Hydrocodone-Acetaminophen (7.5 mg-325 mg) 1 tabs Route: PO; jb4 03:50 Follow up: Response: No adverse reaction; Pain is decreased jb4 Disposition: 04:15 Co-signature as Attending Physician, Mars Hyatt MD. pk Disposition: 08/18/18 02:58 Discharged to Home. Impression: Fracture of shaft of fibula - Distal Right, Other slipping, tripping and stumbling and falls. - Condition is Stable. - Discharge Instructions: Fibular Ankle Fracture Treated With or Without Immobilization, Adult, Fall Prevention in the Home. - Prescriptions for Tylenol- Codeine #3 300-30 mg Oral Tablet - take 2 tablets by ORAL route every 6 hours As needed; 20 tablet. - Medication Reconciliation Form, Thank You Letter, Antibiotic Education, Prescription Opioid Use form. - Follow up: Eze Ackerman MD; When: 2 - 3 days; Reason: right distal fibula fracture. - Problem is new. - Symptoms have improved. Signatures: Dispatcher [employer] EDMars Valera MD MD pkl Miladys Mathews RN RN Ady Alejandra PA PA Johnnie Srivastava, RN RN jb4 Corrections: (The following items were deleted from the chart) 04:01 02:58 08/18/2018 02:58 Discharged to Home. Impression: Fracture of shaft of fibula - jb4 Distal Right; Other slipping, tripping and stumbling and falls. Condition is Stable. Forms are Medication Reconciliation Form, Thank You Letter, Antibiotic Education, Prescription Opioid Use. Follow up: Eze Ackerman; When: 2 - 3 days; Reason: right distal fibula fracture. Problem is new. Symptoms have improved. cp
--- NOTE | 2018-08-18 02:59 | ER ---
Nurse's Notes [facility] Name: Radha Bentley Age: 77 yrs Sex: Female : 1940 Arrival Date: 08/18/2018 Time: 00:07 Bed 16 Private MD: Villa Mann Diagnosis: Fracture of shaft of fibula-Distal Right;Other slipping, tripping and stumbling and falls Presentation: 08/18 00:17 Presenting complaint: Patient states: she was taking her laundry out and when she put bb it down she fell she is unable to get up and crawled into the house where she tried to pull herself up but was unsuccessful during this process she injured her right ankle. Transition of care: patient was not received from another setting of care. Onset of symptoms was August 18, 2018. Risk Assessment: Do you want to hurt yourself or someone else? Patient reports no desire to harm self or others. Initial Sepsis Screen: Does the patient meet any 2 criteria? No. Patient's initial sepsis screen is negative. Does the patient have a suspected source of infection? No. Patient's initial sepsis screen is negative. Care prior to arrival: None. 00:17 Method Of Arrival: Wheelchair bb 00:17 Acuity: VAIBHAV 4 bb Triage Assessment: 00:20 Injury Description: Deformity sustained to anterior aspect of right ankle. jb4 Historical: - Allergies: 00:20 Avelox; bb 00:20 Band-aid adhesive; bb - Home Meds: 00:20 amlodipine 5 mg tab 1 tab once daily [Active]; donepezil 10 mg Oral tab 1 tab once bb daily [Active]; escitalopram oxalate 20 mg Oral tab 1 tab once daily [Active]; fenofibrate 150 mg Oral cap 1 cap once daily [Active]; Hydrochlorothiazide Oral [Active]; levothyroxine 125 mcg tab 1 tab once daily [Active]; lovastatin 20 mg Oral tab 1 tab once daily [Active]; metoprolol tartrate 50 mg Oral tab once daily [Active]; omeprazole 40 mg Oral cpDR 1 cap once daily [Active]; ropinirole 2 mg Oral tab 1 tab twice a day [Active]; - PMHx: 00:20 Diverticulitis; Heart Murmur; Hyperlipidemia; Hypertension; Hypothyroidism; Pneumonia; bb - PSHx: 00:20 Hysterectomy; Knee surgery; Cholecystectomy; Appendectomy; shoulder surgery; breast bb reduction; - Immunization history:: Adult Immunizations up to date. - Social history:: Smoking status: Patient uses tobacco products, smokes one-half pack cigarettes per day. - Ebola Screening: : No symptoms or risks identified at this time. Screenin:20 Abuse screen: Denies threats or abuse. Nutritional screening: No deficits noted. jb4 Tuberculosis screening: No symptoms or risk factors identified. Fall Risk Fall in past 12 months (25 points). Total Little Fall Scale indicates Low Risk Score (25-44 pts). Fall prevention measures have been instituted. Side Rails Up X 2 Placed close to Nursing Station Frequent Obs/Assesments occuring Family Present and informed to notify staff if they need to leave bedside. Assessment: 00:20 General: Appears in no apparent distress. comfortable, Behavior is calm, cooperative, jb4 appropriate for age. Pain: Complains of pain in anterior aspect of right ankle Pain radiates to right knee Pain currently is 8 out of 10 on a pain scale. Quality of pain is described as throbbing, Pain began 2 hours ago. Neuro: Level of Consciousness is awake, alert, obeys commands, Oriented to person, place, time, situation. Cardiovascular: Patient's skin is warm and dry. Pulses are 3+ in right dorsalis pedis artery. Respiratory: Airway is patent Respiratory effort is even, unlabored, Respiratory pattern is regular, symmetrical. GI: : No signs and/or symptoms were reported regarding the genitourinary system. EENT: No signs and/or symptoms were reported regarding the EENT system. Derm: Skin is intact, Skin is pink, warm \T\ dry. Musculoskeletal: Circulation, motion, and sensation intact. Capillary refill < 3 seconds, in right toes. Range of motion: intact in all extremities, Reports pain in right leg. 01:43 Reassessment: Patient appears in no apparent distress at this time. Patient and/or jb4 family updated on plan of care and expected duration. Pain level reassessed. Patient is alert, oriented x 3, equal unlabored respirations, skin warm/dry/pink. family is at the bedside. 02:45 Reassessment: Patient appears in no apparent distress at this time. Patient and/or jb4 family updated on plan of care and expected duration. Pain level reassessed. Patient is alert, oriented x 3, equal unlabored respirations, skin warm/dry/pink. 03:51 Reassessment: Patient appears in no apparent distress at this time. Patient and/or jb4 family updated on plan of care and expected duration. Pain level reassessed. Patient is alert, oriented x 3, equal unlabored respirations, skin warm/dry/pink. Vital Signs: 00:20 BP 170 / 84; Pulse 71; Resp 18; Temp 99.1(O); Pulse Ox 94% on R/A; Weight 90.72 kg (R); bb Height 4 ft. 11 in. (149.86 cm); Pain 4/10; 01:43 BP 174 / 85; Pulse 72; Resp 16; Pulse Ox 96% on R/A; jb4 02:00 BP 168 / 87; Pulse 68; Resp 16; Pulse Ox 96% on R/A; jb4 03:40 BP 186 / 89; Pulse 64; Resp 16; Pulse Ox 100% on R/A; jb4 00:20 Body Mass Index 40.39 (90.72 kg, 149.86 cm) ED Course: 00:07 Patient arrived in ED. al2 00:07 Villa Mann MD is Private Physician. al2 00:19 Triage completed. bb 00:20 Johnnie Hernandez, RN is Primary Nurse. jb4 00:20 Patient has correct armband on for positive identification. Bed in low position. Call jb4 light in reach. Side rails up X2. Pulse ox on. NIBP on. 00:20 Arm band placed on. jb4 00:27 Ady Bower PA is PHCP. cp 00:27 Mars yHatt MD is Attending Physician. cp 00:48 Patient moved to radiology via stretcher. sg4 01:20 X-ray completed. Patient tolerated procedure well. sg4 01:20 Patient moved back from radiology. sg4 01:22 XRAY Foot LEFT 3 View In Process Unspecified. EDMS 01:22 XRAY Foot RIGHT 3 View In Process Unspecified. EDMS 01:22 XRAY Tib Fib RIGHT In Process Unspecified. EDMS 01:22 XRAY Hip RIGHT 2 view In Process Unspecified. EDMS 01:23 XRAY Pelvis In Process Unspecified. EDMS 01:39 Ankle Right 3 View XRAY In Process Unspecified. EDMS 02:57 Eze Ackerman MD is Referral Physician. cp 03:40 Orthoglass splint: Posterior short lleg splint applied on stirrup splint applied on oe right leg. 03:40 No provider procedures requiring assistance completed. Patient did not have IV access jb4 during this emergency room visit. Administered Medications: 01:45 Drug: HYDROcodone-acetaminophen 5 mg-325 mg 1 tabs Route: PO; jb4 03:00 Follow up: Response: No adverse reaction; Pain is decreased jb4 03:45 Drug: Hydrocodone-Acetaminophen (7.5 mg-325 mg) 1 tabs Route: PO; jb4 03:50 Follow up: Response: No adverse reaction; Pain is decreased jb4 Outcome: 02:58 Discharge ordered by MD. cp 03:40 Discharged to home via wheelchair. jb4 03:40 Condition: stable 03:40 Discharge instructions given to patient, family, Instructed on discharge instructions, follow up and referral plans. medication usage, Demonstrated understanding of instructions, follow-up care, medications, Prescriptions given X 1. 04:01 Patient left the ED. jb4 Signatures: Dispatcher [employer] EDMS Miladys Mathews, RN RN Ady Alejandra PA PA cp Bryson, James, RN RN jb4 Candelario Holt Angelica al2 Garcia, Susana sg4
[2018-08-18] MEDS ORDERED: HYDROCODONE/APAP 7.5/325 MG TAB ONE (03:48)
[2018-08-18 05:03] VITALS: TEMP 99.1
[2018-08-18 05:07] VITALS: BP 186/89; O2SAT 100
--- NOTE | 2018-08-18 11:05 | RAD REPORT ---
EXAM DESCRIPTION: RAD - Ankle Right 3 View - 08/18/2018 1:40 am CLINICAL HISTORY: Pain;Deformity COMPARISON: Ankle Right 3 View dated 06/28/2011 FINDINGS: Oblique fracture of the distal fibula is identified. Intertarsal joint degenerative change s seen with flatfoot deformity. Prominent plantar calcaneal spurs are seen.
--- NOTE | 2018-08-18 11:18 | RAD REPORT ---
EXAM DESCRIPTION: RAD - Pelvis - 08/18/2018 1:22 am CLINICAL HISTORY: fall Pain COMPARISON: No comparisons FINDINGS: AP pelvis and right hip-multiple projections are submitted. No fracture or dislocation is seen. Mild osteoarthritis is present.
--- NOTE | 2018-08-18 11:19 | RAD REPORT ---
EXAM DESCRIPTION: RAD - Foot Left 3 View - 08/18/2018 1:22 am CLINICAL HISTORY: fall Pain COMPARISON: No comparisons FINDINGS: Flatfoot deformity is identified with moderate plantar calcaneal spur. Hardware is noted w ithin the first through fourth toes without complication evident. No acute fractures seen.
--- NOTE | 2018-08-18 11:20 | RAD REPORT ---
EXAM DESCRIPTION: RAD - Tib Fib Right - 08/18/2018 1:24 am CLINICAL HISTORY: PAIN History of fall COMPARISON: No comparisons FINDINGS: Right total knee arthroplasty is present. Oblique fracture of the distal fibula is seen wi th adjacent soft tissue swelling. No dislocation evident.
--- NOTE | 2018-08-18 11:20 | RAD REPORT ---
EXAM DESCRIPTION: RAD - Foot Right 3 View - 08/18/2018 1:23 am CLINICAL HISTORY: fall Pain COMPARISON: No comparisons FINDINGS: Prominent intertarsal degenerative changes are present with flatfoot deformity. Moderate p lantar calcaneal spurs seen. Oblique fracture of the distal fibula is identified. No dislocation evid ent.
--- NOTE | 2018-08-19 09:29 | RAD REPORT ---
EXAM DESCRIPTION: RAD - Hip Right 2 View - 08/18/2018 1:22 am CLINICAL HISTORY: Fall Pain COMPARISON: No comparisons FINDINGS: AP pelvis and right hip-multiple projections are submitted. No fracture or dislocation is seen. Mild osteoarthritis is present.
== END 2018-08-18 04:01 | disposition home or self-care (01) ==
LOC: ER 00:05
PROC: 2W3QX1Z Immobilization of Right Lower Leg using Splint (ICD-10-PCS; principal; 2018-08-18)
DX: S82.831A Other fracture of upper and lower end of right fibula, initial encounter for closed fracture (principal); W01.0XXA Fall on same level from slipping, tripping and stumbling without subsequent striking against object, initial encounter; Y92.009 Unspecified place in unspecified non-institutional (private) residence as the place of occurrence of the external cause; E78.5 Hyperlipidemia, unspecified; E03.9 Hypothyroidism, unspecified; I10 Essential (primary) hypertension; F17.210 Nicotine dependence, cigarettes, uncomplicated; Z79.899 Other long term (current) drug therapy
CPT/HCPCS: 72170; 99284

== ENCOUNTER 2018-09-23 19:16 | Emergency (ER) | payer OTHER ==
--- OUTSIDE RECORDS SUMMARY | 2018-09-23 19:18 | XMS REPORT ---
:1940 Author Organization [facility] Address [address] [place] [address] Dr. Ryan [address] [place] [id number] Care Team Providers Name Role Phone Unavailable Unavailable Unavailable Problems This patient has no known problems. Allergies, Adverse Reactions, Alerts This patient has no known allergies or adverse reactions. Medications This patient has no known medications.
[2018-09-23] MEDS ORDERED: ALBUTEROL 2.5 MG/3 ML NEB SOL ONE (20:15)
[2018-09-23] MEDS ORDERED: IPRATROPIUM BROM 0.5MG/2.5ML ONE (20:15)
[2018-09-23] MEDS ORDERED: METHYLPREDNISOLONE 125 MG INJ ONE (20:15)
[2018-09-23] MEDS ORDERED: AZITHROMYCIN 500 MG/250 ML BAG ONE (20:15)
[2018-09-23] MEDS ORDERED: LEVALBUTEROL 1.25 MG/3 ML NEB ONE (20:15)
[2018-09-23 20:54] LABS: Absolute Lymphocytes (CBC) 1.3 K/uL (0.7-4.9); Absolute Neutrophil 7.7 K/uL (1.8-8.0); Basophils % 1.3 % (0-1.3); Eosinophils % 2.7 % (0-4.4); Hematocrit 39.6 % (36.0-45.0); Lymphocytes % 12.5 % (15.3-44.8); Monocytes % 9.2 % (3.3-12.3); RBC Red Blood Cell Count 4.55 M/uL (3.86-4.86)
[2018-09-23 21:01] LABS: Protime INR 0.97
[2018-09-23 21:13] LABS: ALT/SGPT 24 U/L (12-78); AST/SGOT 23 U/L (15-37); Albumin 3.3 g/dL (3.4-5.0); Alkaline Phosphatase 123 U/L (45-117); BUN Blood Urea Nitrogen 14 mg/dL (7-18); Bicarbonate 29 mmol/L (21-32); Bilirubin Direct 0.1 mg/dL (0-0.2); Bilirubin Total 0.4 mg/dL (0.2-1.0); CKMB Creatine Kinase MB 2.2 ng/mL (0.3-3.6); Creatine Phosphokinase 127 U/L (26-192); Glucose Level 191 mg/dL (74-106); Lipase 106 U/L (73-393); Magnesium 2.2 mg/dL (1.8-2.4); NT PRO-BNP 1157 pg/mL (<450); Potassium 4.4 mmol/L (3.5-5.1); Protein, Total 7.1 g/dL (6.4-8.2); Sodium Level 138 mmol/L (136-145); Troponin (Emerg Dept Use Only) < 0.02 ng/mL (0.0-0.045)
[2018-09-23] MEDS ORDERED: KETOROLAC 30 MG/ML INJ ONE (21:13)
--- NOTE | 2018-09-23 21:20 | RAD REPORT ---
EXAM DESCRIPTION: Vishnu Single View09/23/2018 8:27 pm CLINICAL HISTORY: Shortness breath COMPARISON: August 2018 FINDINGS: The lungs appear clear of acute infiltrate. The heart is normal size IMPRESSION: No acute abnormalities displayed
--- NOTE | 2018-09-23 21:23 | EDPHYS ---
Physician Documentation [facility] Name: Radha Bentley Age: 77 yrs Sex: Female : 1940 Arrival Date: 09/23/2018 Time: 19:20 Bed 24 Private MD: Villa Mann ED Physician Jin Morrison HPI: 09/23 19:53 This 77 yrs old Female presents to ER via Wheelchair with complaints of ma2 Cough, Breathing Difficulty. 19:53 The patient or guardian reports cough, difficulty breathing. Onset: The ma2 symptoms/episode began/occurred gradually, 2 day(s) ago. Severity of symptoms: At their worst the symptoms were moderate, in the emergency department the symptoms are unchanged. Associated signs and symptoms: Pertinent positives: rhinorrhea, Pertinent negatives: chest pain, diarrhea, ear ache. The patient has not experienced similar symptoms in the past. Historical: - Allergies: 19:27 Avelox; aj 19:27 Band-aid adhesive; aj - Home Meds: 19:27 amlodipine 5 mg tab 1 tab once daily [Active]; donepezil 10 mg Oral tab 1 tab once aj daily [Active]; escitalopram oxalate 20 mg Oral tab 1 tab once daily [Active]; fenofibrate 150 mg Oral cap 1 cap once daily [Active]; Hydrochlorothiazide Oral [Active]; levothyroxine 125 mcg tab 1 tab once daily [Active]; lovastatin 20 mg Oral tab 1 tab once daily [Active]; metoprolol tartrate 50 mg Oral tab once daily [Active]; omeprazole 40 mg Oral cpDR 1 cap once daily [Active]; ropinirole 2 mg Oral tab 1 tab twice a day [Active]; - PMHx: 19:27 Diverticulitis; Heart Murmur; Hyperlipidemia; Hypertension; Hypothyroidism; Pneumonia; aj - PSHx: 19:27 Hysterectomy; Knee surgery; Cholecystectomy; Appendectomy; shoulder surgery; breast aj reduction; - Immunization history:: Adult Immunizations up to date. - Social history:: Smoking status: Patient/guardian denies using tobacco, Patient/guardian denies using alcohol, street drugs, The patient lives alone. - Ebola Screening: : Patient negative for fever greater than or equal to 101.5 degrees Fahrenheit, and additional compatible Ebola Virus Disease symptoms Patient denies exposure to infectious person Patient denies travel to an Ebola-affected area in the 21 days before illness onset No symptoms or risks identified at this time. - Family history:: not pertinent, pertinent for. - Hospitalizations: : No recent hospitalization is reported. ROS: 19:53 Constitutional: Negative for fever, chills, and weight loss, ENT: Negative for injury, ma2 pain, and discharge, Neck: Negative for injury, pain, and swelling, Cardiovascular: Negative for chest pain, palpitations, and edema, Abdomen/GI: Negative for abdominal pain, nausea, diarrhea, and constipation, : Negative for injury, bleeding, discharge, and swelling. 19:53 Respiratory: Positive for cough, shortness of breath, Negative for dyspnea on exertion, hemoptysis, pleurisy, acute changes. 19:53 All other systems are negative. Exam: 19:53 Constitutional: This is a well developed, well nourished patient who is awake, alert, ma2 and in no acute distress. ENT: Nares patent. No nasal discharge, no septal abnormalities noted. Tympanic membranes are normal and external auditory canals are clear. Oropharynx with no redness, swelling, or masses, exudates, or evidence of obstruction, uvula midline. Mucous membranes moist. Neck: Trachea midline, no thyromegaly or masses palpated, and no cervical lymphadenopathy. Supple, full range of motion without nuchal rigidity, or vertebral point tenderness. No Meningismus. 19:53 Chest/axilla: Normal chest wall appearance and motion. Nontender with no deformity. No lesions are appreciated. Cardiovascular: Regular rate and rhythm with a normal S1 and S2. No gallops, murmurs, or rubs. Normal PMI, no JVD. No pulse deficits. Abdomen/GI: Soft, non-tender, with normal bowel sounds. No distension or tympany. No guarding or rebound. No evidence of tenderness throughout. Back: No spinal tenderness. No costovertebral tenderness. Full range of motion. MS/ Extremity: Pulses equal, no cyanosis. Neurovascular intact. Full, normal range of motion. Neuro: Awake and alert, GCS 15, oriented to person, place, time, and situation. Cranial nerves II-XII grossly intact. Motor strength 5/5 in all extremities. Sensory grossly intact. Cerebellar exam normal. Normal gait. 19:53 Respiratory: mild respiratory distress is noted, Respirations: normal, Breath sounds: wheezing: Vital Signs: 19:27 BP 143 / 78; Pulse 81; Resp 19; Temp 99.0; Pulse Ox 95% on R/A; Weight 90.72 kg; Height aj 4 ft. 11 in. (149.86 cm); 20:57 BP 177 / 79; Pulse 79; Resp 18; Pulse Ox 100% on Nebulizer Mask; Pain 2/10; mg2 21:30 BP 164 / 86; Pulse 86; Resp 18; Pulse Ox 94% on R/A; Pain 0/10; mg2 21:51 BP 136 / 78; Pulse 75; Resp 18; Pulse Ox 98% on R/A; Pain 0/10; mg2 19:27 Body Mass Index 40.39 (90.72 kg, 149.86 cm) aj MDM: 19:33 Patient medically screened. ma2 19:53 Differential Diagnosis: Obstructed Airway Bronchitis Influenza Upper Respiratory ma2 Infection Sinusitis Pharyngitis. 21:19 Data reviewed: vital signs, nurses notes, lab test result(s), EKG, radiologic studies. ma2 Counseling: I had a detailed discussion with the patient and/or guardian regarding: the historical points, exam findings, and any diagnostic results supporting the discharge/admit diagnosis, the presence of at least one elevated blood pressure reading (>120/80) during this emergency department visit, the need for outpatient follow up. Response to treatment: the patient's symptoms have resolved after treatment. ED course: age corrected ddimer is negative, although bnp is elevated she does not have pul edema or volume overload on exam and her symptoms resolved with nebs and vs wnl.. she want to go home will discharge and she will return tomorrow if not feeling better . 09/23 19:53 Order name: Blood Culture Adult (2) ut09/23 19:53 Order name: BMP; Complete Time: 21:17 [facility] 09/23 19:53 Order name: CBC with Diff; Complete Time: 21:00 09/23 19:53 Order name: Ckmb; Complete Time: 21:17 [facility] 09/23 19:53 Order name: CPK; Complete Time: 21:17 [facility] 09/23 19:53 Order name: D-Dimer; Complete Time: 21:17 [facility] 09/23 19:53 Order name: Hepatic Function; Complete Time: 21:17 09/23 19:53 Order name: Lipase; Complete Time: 21:17 09/23 19:53 Order name: Magnesium; Complete Time: 21:17 09/23 19:53 Order name: NT PRO-BNP; Complete Time: 21:17 09/23 19:53 Order name: PT-INR; Complete Time: 21:17 09/23 19:53 Order name: Ptt, Activated; Complete Time: 21:17 09/23 19:53 Order name: Troponin (emerg Dept Use Only); Complete Time: 21:17 09/23 19:53 Order name: Influenza Screen (a \T\ B); Complete Time: 20:54 09/23 19:53 Order name: XRAY CXR (1 view); Complete Time: 21:22 09/23 19:53 Order name: EKG; Complete Time: 19:55 09/23 19:53 Order name: Cardiac monitoring; Complete Time: 20:25 09/23 19:53 Order name: EKG - Nurse/Tech; Complete Time: 20:25 09/23 19:53 Order name: IV Saline Lock; Complete Time: 20:25 09/23 19:53 Order name: Labs collected and sent; Complete Time: 20:25 09/23 19:53 Order name: O2 Per Protocol; Complete Time: 20:25 09/23 19:53 Order name: O2 Sat Monitoring; Complete Time: 20:26 09/23 19:54 Order name: Blood Culture EDMS Administered Medications: 20:24 Drug: SOLU-Medrol 125 mg Route: IVP; Site: right antecubital; mg2 20:55 Follow up: Response: No adverse reaction; Marked relief of symptoms mg2 20:24 Drug: Zithromax 500 mg Route: IVPB; Infused Over: 1 hrs; Site: right antecubital; mg2 21:29 Follow up: Response: No adverse reaction; IV Status: Completed infusion mg2 20:25 Drug: Xopenex 1.25 mg Route: Inhalation; mg2 20:56 Follow up: Response: No adverse reaction; Marked relief of symptoms mg2 20:25 Drug: Albuterol 2.5 mg Route: Inhalation; mg2 20:25 Drug: AtroVENT Aerosol 0.5 mg Route: Inhalation; mg2 20:56 Drug: Albuterol 2.5 mg Route: Inhalation; mg2 20:56 Drug: AtroVENT Aerosol 0.5 mg Route: Inhalation; mg2 21:04 Drug: TORadol 30 mg Route: IVP; Site: right antecubital; mg2 21:29 Follow up: Response: No adverse reaction; Marked relief of symptoms mg2 21:06 Drug: Albuterol 2.5 mg Route: Inhalation; mg2 21:30 Follow up: Response: No adverse reaction; Marked relief of symptoms mg2 21:06 Drug: AtroVENT Aerosol 0.5 mg Route: Inhalation; mg2 21:30 Follow up: Response: No adverse reaction; Marked relief of symptoms mg2 Disposition: 09/23/18 21:22 Discharged to Home. Impression: Bronchitis, not specified as acute or chronic. - Condition is Stable. - Discharge Instructions: Acute Bronchitis, Adult. - Prescriptions for Xopenex 1.25 mg/3 mL Inhalation Solution for Nebulization - inhale 1 unit by NEBULIZATION route every 8 hours As needed; 1 box. Zithromax Z- Diego 250 mg Oral Tablet - take 1 tablet by ORAL route as directed for 5 days Day 1 - take two (2) tablets one time. Day 2, 3, 4 , 5 take one (1) tablet once daily.; 6 tablet. Medrol (Diego) 4 mg Oral Tablets, Dose Pack - take 1 tablet by ORAL route as directed - follow package instructions; 1 packet. - Medication Reconciliation Form, Thank You Letter, Antibiotic Education, Prescription Opioid Use form. - Follow up: Private Physician; When: Tomorrow; Reason: Continuance of care. Signatures: Dispatcher [employer] Alison Aranda RN RN aj Alzahri, Mohammad, MD MD ma2 Juancarlos Hicks RN RN mg2 Corrections: (The following items were deleted from the chart) 21:54 21:22 09/23/2018 21:22 Discharged to Home. Impression: Bronchitis, not specified as mg2 acute or chronic. Condition is Stable. Discharge Instructions: Acute Bronchitis, Adult. Prescriptions for Xopenex 1.25 mg/3 mL Inhalation Solution for Nebulization - inhale 1 unit by NEBULIZATION route every 8 hours As needed; 1 box, Zithromax Z-Diego 250 mg Oral Tablet - take 1 tablet by ORAL route as directed for 5 days Day 1 - take two (2) tablets one time. Day 2, 3, 4 , 5 take one (1) tablet once daily.; 6 tablet, Medrol (Diego) 4 mg Oral Tablets, Dose Pack - take 1 tablet by ORAL route as directed - follow package instructions; 1 packet. and Forms are Medication Reconciliation Form, Thank You Letter, Antibiotic Education, Prescription Opioid Use. Follow up: Private Physician; When: Tomorrow; Reason: Continuance of care. ma2
--- NOTE | 2018-09-23 21:23 | ER ---
Nurse's Notes [facility] Name: Radha Bentley Age: 77 yrs Sex: Female : 1940 Arrival Date: 09/23/2018 Time: 19:20 Bed 24 Private MD: Villa Mann Diagnosis: Bronchitis, not specified as acute or chronic Presentation: 09/23 19:25 Presenting complaint: Patient states: SOB, wheezing and cough for 2 days. Transition of aj care: patient was not received from another setting of care. Onset of symptoms was September 22, 2018. Risk Assessment: Do you want to hurt yourself or someone else? Patient reports no desire to harm self or others. Initial Sepsis Screen: Does the patient meet any 2 criteria? No. Patient's initial sepsis screen is negative. Does the patient have a suspected source of infection? No. Patient's initial sepsis screen is negative. Care prior to arrival: None. 19:25 Method Of Arrival: Wheelchair aj 19:25 Acuity: VAIBHAV 3 aj Triage Assessment: 19:27 General: Appears in no apparent distress. comfortable, Behavior is calm, cooperative, aj appropriate for age. Pain: Denies pain. Neuro: Level of Consciousness is awake, alert, obeys commands, Oriented to person, place, time, situation, Appropriate for age. Respiratory: Reports shortness of breath cough that is productive, Onset: The symptoms/episode began/occurred yesterday, the patient has mild shortness of breath. Derm: Skin is intact, is healthy with good turgor, Skin is pink, warm \T\ dry. normal. Historical: - Allergies: 19:27 Avelox; aj 19:27 Band-aid adhesive; aj - Home Meds: 19:27 amlodipine 5 mg tab 1 tab once daily [Active]; donepezil 10 mg Oral tab 1 tab once aj daily [Active]; escitalopram oxalate 20 mg Oral tab 1 tab once daily [Active]; fenofibrate 150 mg Oral cap 1 cap once daily [Active]; Hydrochlorothiazide Oral [Active]; levothyroxine 125 mcg tab 1 tab once daily [Active]; lovastatin 20 mg Oral tab 1 tab once daily [Active]; metoprolol tartrate 50 mg Oral tab once daily [Active]; omeprazole 40 mg Oral cpDR 1 cap once daily [Active]; ropinirole 2 mg Oral tab 1 tab twice a day [Active]; - PMHx: 19:27 Diverticulitis; Heart Murmur; Hyperlipidemia; Hypertension; Hypothyroidism; Pneumonia; aj - PSHx: 19:27 Hysterectomy; Knee surgery; Cholecystectomy; Appendectomy; shoulder surgery; breast aj reduction; - Immunization history:: Adult Immunizations up to date. - Social history:: Smoking status: Patient/guardian denies using tobacco, Patient/guardian denies using alcohol, street drugs, The patient lives alone. - Ebola Screening: : Patient negative for fever greater than or equal to 101.5 degrees Fahrenheit, and additional compatible Ebola Virus Disease symptoms Patient denies exposure to infectious person Patient denies travel to an Ebola-affected area in the 21 days before illness onset No symptoms or risks identified at this time. - Family history:: not pertinent, pertinent for. - Hospitalizations: : No recent hospitalization is reported. Screenin:51 Abuse screen: Denies threats or abuse. Denies injuries from another. Nutritional mg2 screening: No deficits noted. Tuberculosis screening: No symptoms or risk factors identified. Fall Risk None identified. Assessment: 19:49 General: Appears in no apparent distress. comfortable, Behavior is calm, cooperative. mg2 Pain: Complains of pain in right side of the trunk Pain does not radiate. Pain currently is 4 out of 10 on a pain scale. Quality of pain is described as aching, everytime she coughs Pain began gradually, 1 day ago. Neuro: Level of Consciousness is awake, alert, obeys commands, Oriented to person, place, time, situation. Cardiovascular: Capillary refill < 3 seconds Patient's skin is warm and dry. Respiratory: Airway is patent Respiratory effort is even, unlabored, Respiratory pattern is regular, symmetrical, Breath sounds with wheezes bilaterally. in mediastinum, right upper lobe and left upper lobe. Respiratory: Reports cough that is productive, since today. GI: No signs and/or symptoms were reported involving the gastrointestinal system. : No signs and/or symptoms were reported regarding the genitourinary system. EENT: No signs and/or symptoms were reported regarding the EENT system. Derm: Skin is intact, is healthy with good turgor, Skin is pink, warm \T\ dry. normal. Musculoskeletal: No signs and/or symptoms reported regarding the musculoskeletal system. 20:56 Reassessment: Patient appears in no apparent distress at this time. Patient and/or mg2 family updated on plan of care and expected duration. Pain level reassessed. Patient is alert, oriented x 3, equal unlabored respirations, skin warm/dry/pink. Cardiovascular: Rhythm is sinus rhythm with PACs. Vital Signs: 19:27 BP 143 / 78; Pulse 81; Resp 19; Temp 99.0; Pulse Ox 95% on R/A; Weight 90.72 kg; Height aj 4 ft. 11 in. (149.86 cm); 20:57 BP 177 / 79; Pulse 79; Resp 18; Pulse Ox 100% on Nebulizer Mask; Pain 2/10; mg2 21:30 BP 164 / 86; Pulse 86; Resp 18; Pulse Ox 94% on R/A; Pain 0/10; mg2 21:51 BP 136 / 78; Pulse 75; Resp 18; Pulse Ox 98% on R/A; Pain 0/10; mg2 19:27 Body Mass Index 40.39 (90.72 kg, 149.86 cm) ED Course: 19:20 Patient arrived in ED. es 19:20 Villa Mann MD is Private Physician. es 19:26 Triage completed. aj 19:27 Arm band placed on left wrist. Patient placed in an exam room. aj 19:33 Jin Morrison MD is Attending Physician. [facility] 19:34 Juancarlos Hicks, ALAN is Primary Nurse. mg2 19:51 No provider procedures requiring assistance completed. mg2 19:52 Patient has correct armband on for positive identification. Bed in low position. Call mg2 light in reach. Side rails up X2. Pulse ox on. NIBP on. Door closed. Warm blanket given. 20:00 Inserted saline lock: 20 gauge in right antecubital area, using aseptic technique. mg2 Blood collected. 20:27 XRAY CXR (1 view) In Process Unspecified. EDMS 21:11 Notified ED physician of a critical lab result(s). d dimer 787. fc 21:52 IV discontinued, intact, bleeding controlled, No redness/swelling at site. Pressure mg2 dressing applied. Administered Medications: 20:24 Drug: SOLU-Medrol 125 mg Route: IVP; Site: right antecubital; mg2 20:55 Follow up: Response: No adverse reaction; Marked relief of symptoms mg2 20:24 Drug: Zithromax 500 mg Route: IVPB; Infused Over: 1 hrs; Site: right antecubital; mg2 21:29 Follow up: Response: No adverse reaction; IV Status: Completed infusion mg2 20:25 Drug: Xopenex 1.25 mg Route: Inhalation; mg2 20:56 Follow up: Response: No adverse reaction; Marked relief of symptoms mg2 20:25 Drug: Albuterol 2.5 mg Route: Inhalation; mg2 20:25 Drug: AtroVENT Aerosol 0.5 mg Route: Inhalation; mg2 20:56 Drug: Albuterol 2.5 mg Route: Inhalation; mg2 20:56 Drug: AtroVENT Aerosol 0.5 mg Route: Inhalation; mg2 21:04 Drug: TORadol 30 mg Route: IVP; Site: right antecubital; mg2 21:29 Follow up: Response: No adverse reaction; Marked relief of symptoms mg2 21:06 Drug: Albuterol 2.5 mg Route: Inhalation; mg2 21:30 Follow up: Response: No adverse reaction; Marked relief of symptoms mg2 21:06 Drug: AtroVENT Aerosol 0.5 mg Route: Inhalation; mg2 21:30 Follow up: Response: No adverse reaction; Marked relief of symptoms mg2 Outcome: 21:22 Discharge ordered by . jacinto 21:52 Discharged to home via wheelchair. mg2 21:52 Condition: stable 21:52 Discharge instructions given to patient, Instructed on discharge instructions, follow up and referral plans. medication usage, Demonstrated understanding of instructions, follow-up care, medications, Prescriptions given X 3. 21:54 Patient left the ED. mg2 Signatures: Dispatcher [employer] Alison Aranda RN RN aj Salyer, Edna es Chretien, Felicia, RN RN fc Alzahri, Mohammad, MD MD ma2 Gardose, Michele, RN RN mg2
[2018-09-23 22:41] VITALS: TEMP 99
[2018-09-23 22:45] VITALS: BP 136/78; O2SAT 98
--- NOTE | 2018-09-24 10:03 | EKG ---
Test Date: 2018-09-23 Test Time: 20:27:25 Desk Assistant: MG MEASUREMENT RESULTS: Intervals: Rate: 70 WV: 214 QRSD: 110 QT: 424 QTc: 457 [place]: P: 64 WV: 214 QRS: -42 T: 25 INTERPRETIVE STATEMENTS: Sinus rhythm with 1st degree AV block Left axis deviation Pulmonary disease pattern Incomplete right bundle branch block Moderate voltage criteria for LVH, may be normal variant Abnormal ECG Compared to ECG 08/12/2018 17:20:01 Left-axis deviation now present Incomplete right bundle-branch block now present Electronically Signed On 09-24-18 09:54:33 RO[address] MENDER by Omid Mckeon
== END 2018-09-23 21:54 | disposition home or self-care (01) ==
LOC: ER 19:16
DX: J40 Bronchitis, not specified as acute or chronic (principal); I44.0 Atrioventricular block, first degree; I45.10 Unspecified right bundle-branch block; R94.31 Abnormal electrocardiogram [ECG] [EKG]; E78.5 Hyperlipidemia, unspecified; I10 Essential (primary) hypertension; E03.9 Hypothyroidism, unspecified; Z79.899 Other long term (current) drug therapy
CPT/HCPCS: 36415; 71045; 80048; 80076; 82550; 82553; 83690; 83735; 83880; 84484; 85025; 85379; 85610; 85730; 87040; 87804; 93005; 96365; 96375; 99285; J0456; J2930

== ENCOUNTER 2019-05-10 13:11 | Observation (INO) | payer OTHER ==
--- OUTSIDE RECORDS SUMMARY | 2019-05-10 13:14 | XMS REPORT ---
:1940 [facility] Address [address] [place] [address] Dr. Ryan [address] [place] [id number] Care Team Providers Name Role Phone Unavailable Unavailable Unavailable Problems This patient has no known problems. Allergies, Adverse Reactions, Alerts This patient has no known allergies or adverse reactions. Medications This patient has no known medications.
--- OUTSIDE RECORDS SUMMARY | 2019-05-10 13:14 | XMS REPORT | Continuity of Care Document ---
:1940 Author Organization [facility] Care Team Providers Name Role Phone [facility] Unavailable Unavailable Problems Problem Status Onset Classification Date Comments Source Date Reported Dyslipidemia Active 10/03/19 Finding 10/07/[address] [facility] [place] Depression Active 10/03/19 Finding 10/07/[address] [facility] [place] Hypothyroid Active 10/03/19 Finding 10/07/[address] [facility] [place] CKD Active 10/03/19 Finding 10/07/[address] [facility] [place] Restless leg Active 10/03/19 Finding 10/07/[address] [facility] [place] Chronic diarrhea Active 10/03/19 Finding 10/07/[address] [facility] [place] Abdominal pain Active 10/03/19 Finding 10/07/[address] [facility] [place] Hypertension Active 10/03/19 Finding 10/07/[address] [facility] [place] Restless legs Active 10/03/19 Finding 10/07/[address] [facility] [facility] [place] Reactive airway Active 11/09/19 Finding 10/07/[address] [facility] disease [facility] [place] Dehydration Active 11/09/19 Finding 10/07/[address] [facility] [place] Hyperkalemia Active 11/09/19 Finding 10/07/[address] [facility] [place] Infection of skin Active 08/21/20 Finding 10/07/[address] [facility] [place] Open wound of Active 08/21/20 Finding 10/07/[address] [facility] foot [facility] [place] Benign Active Finding 10/07/[address] hypertension [facility] [place] Colitis Active Finding 10/07/[address] [facility] [place] Diarrhea Active Finding 10/07/[address] [facility] [place] Change in bowel Active Finding 10/07/[address] habits [facility] [place] Vertigo Active Finding 10/07/[address] [facility] [place] MRSA culture Active Finding 10/07/[address] positive [facility] [place] [id number] Active Finding 10/07/[address] kidney injury [facility] [place] Acute renal Active Finding 10/07/[address] failure [facility] superimposed on [place] chronic kidney disease Altered bowel Active Finding 10/07/[address] [facility] function [facility] [place] Methicillin Active Finding 10/07/[address] resistant [facility] Staphylococcus [place] aureus culture positive HTN - Active Problem 03/24/2019 [facility] Hyperlipidemia Active Problem 03/24/2019 [facility] Hypothyroidism Active Problem 03/24/2019 [facility] [place] Memory loss Active Problem 03/24/2019 [facility] Morbid obesity Active Problem 03/24/2019 [facility] Multiple falls Active Problem 03/24/2019 [facility] Brain TIA Active Problem 03/24/2019 [facility] Medications Medication Details Route Status Patient Ordering Order Source Instructions Provider Date Adult Aspirin 81 mg 81 mg=1 Active [facility] oral tablet, chewable tab, CHEW, 2018 [facility] Daily, # 30 tab, 3 Refill(s), Pharmacy: [id number] levothyroxine 125 mcg 125 Active 02/21/ [facility] (0.125 mg) oral microgram= 2019 [facility] tablet 1 tab, PO, Daily, # 30 tab, 0 Refill(s) gabapentin 300 MG 300 mg=1 Active 02/21/ [facility] Oral Capsule cap, PO, 2018 [facility] BID, # 90 cap, 1 Refill(s) metoprolol 50 mg oral 50 mg=1 Active 02/21/ [facility] tablet, extended tab, PO, 2018 [facility] release Daily, # 30 tab, 0 Refill(s) Escitalopram 20 MG 20 mg=1 Active 02/21/ [facility] Tablet [Lexapro] tab, PO, 2018 [facility] Daily, # 30 tab, 0 Refill(s) omeprazole 40 mg oral 40 mg=1 Active 02/21/ [facility] delayed release cap, PO, 2019 [facility] capsule Daily, # 30 cap, 0 Refill(s) amLODIPine 5 mg oral 5 mg=1 Active 02/21/ [facility] tablet tab, PO, 2019 [facility] Daily, # 90 tab, 0 Refill(s) Atropine Sulfate 2 tab, PO, Active 02/21/ [facility] 0.025 MG / PRN, PRN 2019 [facility] Diphenoxylate for loose Hydrochloride 2.5 MG stool, 0 Oral Tablet [Lomotil] Refill(s) lovastatin 20 mg oral 20 mg=1 Active 02/21/ [facility] tablet tab, PO, 2019 [facility] Bedtime, # 30 tab, 0 Refill(s) rOPINIRole 2 mg oral 2 mg=1 Active 02/21/ [facility] tablet tab, PO, 2019 [facility] BID, 0 Refill(s) lisinopril 40 mg oral 40 mg=1 Active 02/21/ [facility] tablet tab, PO, 2019 [facility] Daily, # 30 tab, 0 Refill(s) donepezil 10 mg oral 10 mg=1 Active 02/21/ [facility] tablet tab, PO, 2019 [facility] Daily, # 30 tab, 0 Refill(s) ProAir HFA 1 - 2 Active 02/21/ [facility] puffs, PO, 2019 [facility] Q4H, PRN Wheezing / cough / shortness of breath, # 1 ea, 0 Refill(s) Cholestyramine/Asp 0500,[address] [facility] [place] Vancomycin Hcl Q6H Active [facility] [place] Donepezil Hcl DAILY Active [facility] [place] Lisinopril DAILY Active [facility] 2018 [facility] [place] Lovastatin DAILY Active [facility] 2018 [facility] [place] Misoprostol DAILY Active St[facility] 2018 [facility] [place] Albuterol Sulfate TWICE Active St. DAILY 2018 [facility] [place] Meclizine Hcl TWICE Active [facility] DAILY PRN 2013 [facility] [place] Vertigo Diclofenac TWICE Active St. Sodium/Misoprostol DAILY 2014 [facility] [place] Amlodipine DAILY Active St[facility] 2014 [facility] [place] Omeprazole DAILY Active St[facility] 2014 [facility] [place] Diclofenac TWICE Active St. Sodium/Misoprostol DAILY 2011 [facility] [place] Escitalopram Oxalate DAILY Active [facility] 2011 [facility] [place] Gabapentin TWICE Active St[facility] DAILY 2012 [facility] [place] Hydrochlorothiazide DAILY Active St[facility] 2012 [facility] [place] Levothyroxine DAILY Active St[facility] 2012 [facility] [place] Metoprolol Succinate DAILY Active St[facility] 2012 [facility] [place] Naproxen Sodium Inactive St. 2012 [facility] [place] Ropinirole Hcl TWICE Active St. DAILY 2012 [facility] [place] Donepezil DAILY Active St[facility] 2012 [facility] [place] Aspirin DAILY Active St[facility] 2012 [facility] [place] Irbesartan DAILY Active [facility] 2011 [facility] [place] Diphenox/Atropine NEEDED Active St. PRN For 2011 [facility] Diarrhea [place] Sulfamethoxazole/Trim TWICE Active St. ethoprim DAILY 2011 [facility] [place] Allergies, Adverse Reactions, Alerts Substance Category Reaction Severity Reaction Status Date Comments Source type Reported moxifloxacin Itching/H Moderate Allergy to Active [facility] St. HCl kaleb/Rash Substance 8 [facility] [place] adhesive Rash Moderate Propensity Active [facility] St. to adverse 8 [facility] reactions [place] band-aid Unknown Allergy to Active [facility] St. adhesive Substance 8 [facility] [place] Avelox Assertion MS^Mild Drug Active [facility] allergy [facility] Immunizations Immunization Date Given Site Status Last Comments Source Updated Influenza Adult 07/22/[address] [facility]. [facility] Vaccine - [place] Pneumovax 08/13/[address] [facility] [place] Results Order Name Results Value Reference Date Interpretation Comments Source Range Laboratory Sodium Level 141 135 - 145 10/07 [facility] St. Studies /2017 [facility] [place] Laboratory Potassium 5.0 3.6 - 5.0 10/07 [facility] St. Studies Level /2017 [facility] [place] Laboratory Phosphorus 3.9 2.5 - 4.3 10/07 [facility] St. Studies Level /2018 [facility] [place] Laboratory Magnesium 2.2 1.8 - 2.5 10/07 [facility]. Studies Level /2018 [facility] [place] Laboratory Glucose Level 96 65 - 120 10/07 [facility] St. Studies /2018 [facility] [place] Laboratory Estimat 39 90 10/07 [facility]. Studies Glomerular /2017 [facility] Filtration [place] Rate Laboratory Creatinine 1.34 0.44 - 10/07 [facility]. Studies 1.00 /2017 [facility] [place] Laboratory Chloride 112 101 - 111 10/07 [facility] St. Studies Level /2017 [facility] [place] Laboratory Carbon 26 21 - 31 10/07 [facility]. Studies Dioxide Level /2017 [facility] [place] Laboratory Calcium Level 8.2 8.5 - 10.5 10/07 [facility]. Studies /2017 [facility] [place] Laboratory Blood Urea 29 6 - 20 10/07 [facility]. Studies Nitrogen /2017 [facility] [place] Laboratory Albumin 3.3 3.2 - 5.5 10/07 [facility] St. Studies /2017 [facility] [place] Laboratory Thyroid 3.22 0.34 - 10/06 [facility]. Studies Stimulating 5.60 /2017 [facility] - Hormone (TSH) [place] Laboratory White Blood 6.7 4.3 - 10.9 10/06 [facility]. Studies Count /2017 [facility] [place] Laboratory Red Cell 14.6 12.1 - 10/06 [facility]. Studies Distribution 15.2 /2017 [facility] - Width [place] Laboratory Red Blood 3.53 3.86 - 10/06 [facility]. Studies Count 4.86 /2017 [facility] [place] Laboratory Platelet 152 152 - 406 10/06 [facility]. Studies Count /2017 [facility] [place] Laboratory Neutrophils % 66.5 41.7 - 10/06 [facility] St. Studies 73.7 /2018 [facility] [place] Laboratory Monocytes % 10.4 3.3 - 12.3 10/06 [facility] St. Studies /2018 [facility] [place] Laboratory Mean Platelet 9.0 7.6 - 11.3 10/06 [facility]. Studies Volume /2018 [facility] [place] Laboratory Mean 85.1 80 - 100 10/06 [facility]. Studies Corpuscular /2018 [facility] Volume [place] Laboratory Mean 33.1 32.0 - 10/[address] Studies Corpuscular 36.0 /2017 [facility] - Hemoglobin [place] Concent Laboratory Mean 28.1 27.0 - 10/06 [facility] St. Studies Corpuscular 35.0 /2017 [facility] Hemoglobin [place] Laboratory Lymphocytes % 18.2 15.3 - 10/06 [facility] St. Studies 44.8 /2017 [facility] [place] Laboratory Hemoglobin 9.9 12.0 - 10/06 [facility] St. Studies 15.0 /2017 [facility] [place] Laboratory Hematocrit 30.1 36.0 - 10/06 [facility] St. Studies 45.0 /2017 [facility] [place] Laboratory Eosinophils % 4.0 0 - 4.4 10/06 [facility] St. Studies /2017 [facility] [place] Laboratory Basophils % 0.9 0 - 1.3 10/06 [facility] St. Studies /2017 [facility] [place] Laboratory Absolute 4.5 1.8 - 8.0 10/06 [facility]. Studies Neutrophil /2017 [facility] [place] Laboratory Absolute 0.7 0.1 - 1.3 10/06 [facility]. Studies Monocytes /2017 [facility] - (CBC) [place] Laboratory Absolute 1.2 0.7 - 4.9 10/06 [facility]. Studies Lymphocytes /2017 [facility] - (CBC) [place] Laboratory Absolute 0.3 0 - 0.5 10/06 [facility]. Studies Eosinophils /2017 [facility] - (CBC) [place] Laboratory Absolute 0.1 0 - 0.5 10/06 [facility]. Studies Basophils /2017 [facility] - (CBC) [place] Laboratory Urine Random 7 10/05 [facility]. Studies Total Protein /2017 [facility] [place] Laboratory Urine 0.22 10/05 [facility]. Studies Protein/Creat /2017 [facility] - inine Ratio [place] Laboratory Urine 31.4 10/05 [facility]. Studies Creatinine /2017 [facility] [place] Laboratory Urine pH 6.0 10/05 [facility] St. Studies /2017 [facility] [place] Laboratory Urine 0.2 10/05 [facility]. Studies Urobilinogen /2017 [facility] [place] Laboratory Urine Total Urine Total 10/05 [facility] St. Studies Protein Protein /2017 [facility] [place] Laboratory Urine 1.010 10/05 [facility] St. Studies Specific /2017 [facility] - Withams [place] Laboratory Urine Nitrite Urine 10/[address] Studies Nitrite [facility] [place] Laboratory Urine Urine 10/05 [facility] St. Studies Leukocyte Leukocyte /2017 [facility] - Esterase Esterase [place] Laboratory Urine Ketones Urine 10/05 St[facility] Studies Ketones /2017 [facility] [place] Laboratory Urine Glucose Urine 10/05 St[facility] Studies Glucose /2017 [facility] [place] Laboratory Urine Color Urine Color 10/05 St. Studies /2017 [facility] [place] Laboratory Urine Blood Urine Blood 10/05 St. Studies /2017 [facility] [place] Laboratory Urine Urine 10/05 [facility] St. Studies Bilirubin Bilirubin /2017 [facility] [place] Laboratory Urine Urine 10/05 [facility] St. Studies Appearance Appearance /2017 [facility] [place] Laboratory Uric Acid 8.9 2.6 - 8.0 10/05 St. Studies /2017 [facility] [place] Laboratory Creatine 105 22 - 269 10/05 [facility] St. Studies Kinase [facility] [place] Microbiolog Meth Meth 10/03 [facility] St. y Studies Resistant Resistant /2017 [facility] - Staph Aureus Staph [place] Aureus Laboratory Total 0.6 0.3 - 1.2 10/02 [facility] St. Studies Bilirubin /2017 [facility] [place] Laboratory Serum Total 6.1 6.0 - 8.3 10/02 [facility] St. Studies Protein /2017 [facility] [place] Laboratory Globulin 2.5 2.3 - 3.5 10/02 St. Studies /2017 [facility] [place] Laboratory Direct 0.1 0 - 0.2 10/02 [facility] St. Studies Bilirubin /2017 [facility] [place] Laboratory Aspartate 17 10 - 42 10/02 [facility] St. Studies Amino Transf /2017 [facility] - (AST/SGOT) [place] Laboratory Amylase Level 34 28 - 100 10/02 [facility] St. Studies /2018 [facility] [place] Laboratory Alkaline 62 42 - 121 10/02 [facility] St. Studies Phosphatase /2017 [facility] [place] Laboratory Albumin/Globu 1.4 1.1 - 1.8 10/02 [facility] St. Studies kelsey Ratio /2017 [facility] [place] Laboratory Alanine 12 10 - 60 10/02 [facility] St. Studies Aminotransfer /2017 [facility] ase [place] (ALT/SGPT) Laboratory Lipase 32 22 - 51 10/02 [facility] St. Studies /2018 [facility] [place] Laboratory Urine WBC <5 10/02 [facility] St. Studies /2017 [facility] [place] Laboratory Urine <5 10/02 [facility] St. Studies Squamous [facility] - Epithelial [place] Cells Laboratory Urine RBC <5 10/02 [facility] St. Studies [facility] [place] Laboratory Urine Hyaline Urine 10/02 [facility] St. Studies Casts Hyaline [facility] - Casts [place] Laboratory Urine Culture Urine 10/02 [facility] St. Studies Reflexed Culture /2017 [facility] - Reflexed [place] Laboratory Urine <20 10/02 [facility] St. Studies Bacteria [facility] [place] Laboratory Stool Fat Stool Fat 09/28 [facility]. Studies Screen Screen [facility] [place] Microbiolog Escherichia Escherichia 07/25 [facility] y Studies Coli Coli /2016 [facility] [place] Laboratory B-Type 177 07/23 [facility]. Studies Natriuretic [facility] - Peptide [place] Laboratory Rapid <0.03 07/23 [facility]. Studies Troponin I /2016 [facility] [place] Laboratory Prothrombin 12.1 9.5 - 12.5 07/23 [facility] St. Studies Time /2016 [facility] [place] Laboratory INR 1.03 07/23 [facility]. Studies International /2016 [facility] Normalized [place] Ratio Laboratory Activated 25.8 24.3 - 07/23 [facility]. Studies Partial 36.9 [facility] - Thromboplast [place] Time Pathology Reports No Data Provided for This Section Diagnostic Reports No Data Provided for This Section Consultation Notes No Data Provided for This Section Discharge Summaries No Data Provided for This Section History and Physicals No Data Provided for This Section Vital Signs Vital Sign Value Date Comments Source Height 147.32 cm 03/21/2019 [facility] Weight 98.182 03/21/2019 [facility] BMI Calculated 45.24 03/21/2019 [facility] Respitory Rate 16 03/21/2019 [facility] Heart Rate 78 03/21/2019 [facility] Systolic (mm Hg) 156 03/21/2019 [facility] Diastolic (mm Hg) 83 03/21/2019 [facility] Height 149.86 cm 02/21/2019 [facility] Weight 90.909 02/21/2019 [facility] BMI Calculated 40.48 02/21/2019 [facility] Respitory Rate 16 02/21/2019 [facility] Heart Rate 63 02/21/2019 [facility] Systolic (mm Hg) 154 02/21/2019 [facility] Diastolic (mm Hg) 85 02/21/2019 [facility] Temperature Oral (F) 97.6 F 10/07/2017 [facility] [place] Heart Rate 63 10/07/2017 [facility]ela - [place] Respitory Rate 18 10/07/2017 [facility] [place] Systolic (mm Hg) 160 10/07/2017 [facility] [place] Diastolic (mm Hg) 76 10/07/2017 [facility] Sdaie[facility] - [place] Weight 227 10/07/2017 [facility] [place] Height 59 10/03/2017 [facility] - [place] Encounters Location Location Encounter Encounter Reason Attending ADM DC Status Source Details Type Number For Provider Date Date Visit [facility] Departed [id number] 07/23 07/23 [facility] Emergency /2016 /2016 [facility] [place] [facility] Reg[facility] [id number] 08/30 [facility] Referred [facility]2017 [facility] [place] [facility] [facility] Reg[facility] [id number] 09/20 [facility] Referred [facility]2017 [facility] [place] [facility] [facility] Reg[facility] [id number] 09/28 [facility] Referred /2017 [facility] [place] [facility] [facility] Discharged [id number] 10/05 10/07 [facility] Inpatient /2017 [facility] [place] [facility] [id number] Jeffrey 02/21 02/22 [facility] /2018 [facility] [place] Outpatient [id number] Jeffrey 03/21 Active [facility] Raul [facility] Outpatient [id number] Jeffrey 03/21 03/22 [facility] /2018 Neuro [place] Outpatient [id number] Jeffrey 05/21 [facility] Procedures Procedure Code Date Perfomer Comments Source Occult Blood 10/06/2017 [facility] - [facility] Fecal Leukocyte 10/06/2017 [facility] - Sheri Negreteosporsylvia Abdomen & Pelvis [id number] 10/02/2017 [facility] - W Contrast [place] Culture & [id number] 09/28/2017 [facility] - Sensitivity [place] Count [id number] 07/23/[address] [facility] - [place] [id number] 07/23/[address] [facility] [place] Chest For Pe [id number] 07/23/[address] [facility] - Angio [place] Chest Single View [id number] 07/23/2017 [facility] [facility] [place] Assessment and Plan No Data Provided for This Section Plan of Care Plan of Care Date Source Instructions 10/07/[address] [facility] [address] [facility] - [place] DI for Abdominal Pain-Adult Instructions 10/07/[address] [facility] [facility] - [place] DI for Abdominal Pain-Adult Social History Social History Date Source Social History TypeResponse 03/21/2019 [facility] Smoking Status Former smoker; Type: Cigarettes; Exposure to Tobacco Smoke None; Cigarette Smoking Last 365 Days No; Reg Smoking Cessation Counseling No entered on: 03/21/19 Query Response Date Recorded Comment 10/07/2017 [facility] [place] Alcohol Use? Yes October 03, 2017 3:24am CD- Drugs? No October 03, 2017 3:24am Query Response Start Date Stop Date Smoking Status Never smoker Family History Value Date Source Query Response Instance Date Recorded Comment 10/07/2017 [facility] - [place] Nurses notes BREAST MOM October 03, 2017 3:24am Nurses notes [place] FATH October 03, 2017 3:24am Medical History Cancer MOM October 03, 2017 3:24am Medical History Cancer FATH October 03, 2017 3:24am Nurses notes BREAST November 09, 2014 11:54pm Medical History Cancer November 09, 2014 11:54pm Advance Directives Order Name Results Value Date Source Advance Directives Advance Directives Advance Directive Response Recorded Date/Time 10/07/2017 [facility] - Does Patient Have Living Will [place] No October 07, 2017 6:00am Durable Power of Engineer Of System Development for Health Care No October 03, 2017 3:24am Would you like additional information No October 03, 2017 12:19am Functional Status No Data Provided for This Section
[2019-05-10 14:35] LABS: Absolute Lymphocytes (CBC) 1.3 K/uL (0.7-4.9); Basophils % 1.2 % (0-1.3); Hematocrit 38.1 % (36.0-45.0); Lymphocytes % 13.1 % (15.3-44.8); MPV 8.5 fL (7.6-11.3); RBC Red Blood Cell Count 4.35 M/uL (3.86-4.86)
[2019-05-10] MEDS ORDERED: NA CHLORIDE 0.9% 1,000 ML ONE (14:35)
[2019-05-10] MEDS ORDERED: TETANUS & DIPHTHERIA TOX,ADULT 0.5 ML VIAL ONE (14:35)
[2019-05-10 14:46] LABS: ALT/SGPT 18 U/L (12-78); AST/SGOT 15 U/L (15-37); Albumin 3.4 g/dL (3.4-5.0); Alkaline Phosphatase 88 U/L (45-117); BUN Blood Urea Nitrogen 21 mg/dL (7-18); Bicarbonate 29 mmol/L (21-32); Bilirubin Direct < 0.1 mg/dL (0-0.2); Bilirubin Total 0.3 mg/dL (0.2-1.0); Glucose Level 138 mg/dL (74-106); Magnesium 2.4 mg/dL (1.8-2.4); NT PRO-BNP 828 pg/mL (<450); Potassium 4.4 mmol/L (3.5-5.1); Protein, Total 7.1 g/dL (6.4-8.2); Sodium Level 140 mmol/L (136-145); Troponin (Emerg Dept Use Only) < 0.02 ng/mL (0.0-0.045)
--- NOTE | 2019-05-10 15:09 | RAD REPORT ---
EXAM DESCRIPTION: RAD - Chest Single View - 05/10/2019 2:50 pm CLINICAL HISTORY: COUGH Chest pain. COMPARISON: Chest Single View dated 09/23/2018; Chest Single View dated 08/12/2018; Chest Single Vie w dated 01/03/2018; Chest Single View dated 07/23/2017 FINDINGS: Portable technique limits examination quality. Elevation of the right hemidiaphragm is noted, chronic. The lungs are grossly clear. The heart is mil dly prominent size. Hardware is present proximal left humerus.
--- NOTE | 2019-05-10 15:10 | RAD REPORT ---
EXAM DESCRIPTION: RAD - Foot Right 3 View - 05/10/2019 2:50 pm CLINICAL HISTORY: PAIN COMPARISON: <Comparisons> FINDINGS: Prominent pes planus deformity is seen with midfoot collapse and intertarsal degenerative changes medially. 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 Prominent swelling along the plantar aspect of the foot is seen without radiopaque foreign body. A small plantar calcaneal spur a lso noted.
[2019-05-10 15:29] LABS: Protime INR 0.96
--- NOTE | 2019-05-10 16:24 | ER ---
Nurse's Notes [facility] Name: Radha Bentley Age: 78 yrs Sex: Female : 1940 Arrival Date: 05/10/2019 Time: 13:12 Bed 5 Private MD: Villa Mann Diagnosis: Weakness;Dyspnea;Dizziness and giddiness;Cardiomegaly Presentation: 05/10 13:34 Presenting complaint: Patient states: feels like there's something in her right foot, iw thinks she may have stepped on some glass, she sees mild redness and swelling to bottom of foot, went to Dr. Sanchez's office Sunday but he was not in the office. Transition of care: patient was not received from another setting of care. Onset of symptoms was May 10, 2019. Risk Assessment: Do you want to hurt yourself or someone else? Patient reports no desire to harm self or others. Initial Sepsis Screen: Does the patient meet any 2 criteria? No. Patient's initial sepsis screen is negative. Does the patient have a suspected source of infection? No. Patient's initial sepsis screen is negative. Care prior to arrival: None. 13:34 Method Of Arrival: Wheelchair iw 13:34 Acuity: VAIBHAV 4 iw 13:54 Note pt also states she has been feeling dizzy since this morning. iw 13:54 Acuity: VAIBHAV 3 iw Historical: - Allergies: 13:38 Avelox; iw 13:38 Band-aid adhesive; iw - Home Meds: 18:34 bupropion HCl 150 mg Oral TbER 2 times per day [Active]; escitalopram oxalate 20 mg aa5 oral tab twice a day [Active]; omeprazole 40 mg Oral cpDR once daily [Active]; misoprostol 200 mcg oral tab once a day [Active]; amlodipine 5 mg tab once daily [Active]; metoprolol succinate 50 mg oral Tb24 once daily [Active]; ropinirole 2 mg oral tab twice a day [Active]; gabapentin 300 mg oral cap twice a day [Active]; potassium chloride 10 mEq Oral cpER once daily [Active]; levothyroxine 125 mcg tab once daily [Active]; amlodipine 5 mg tab 1 tab once daily [Active]; donepezil 10 mg oral tab once daily [Active]; aspirin 81 mg Oral chew 1 tab once daily [Active]; lovastatin 20 mg Oral tab 1 tab once daily [Active]; - PMHx: 13:38 Diverticulitis; Heart Murmur; Hyperlipidemia; Hypothyroidism; Pneumonia; Hypertension; iw - PSHx: 13:38 Hysterectomy; Knee surgery; Cholecystectomy; Appendectomy; shoulder surgery; breast iw reduction; - Immunization history:: Adult Immunizations up to date. - Social history:: Smoking status: Patient/guardian denies using tobacco. - Ebola Screening: : Patient negative for fever greater than or equal to 101.5 degrees Fahrenheit, and additional compatible Ebola Virus Disease symptoms Patient denies exposure to infectious person Patient denies travel to an Ebola-affected area in the 21 days before illness onset No symptoms or risks identified at this time. Screenin:00 Abuse screen: Denies threats or abuse. Nutritional screening: No deficits noted. aa5 Tuberculosis screening: No symptoms or risk factors identified. Fall Risk None identified. Assessment: 13:50 General: Appears comfortable, Behavior is calm, cooperative. Pain: Complains of pain in aa5 arch of right foot Pain does not radiate. Pain currently is 4 out of 10 on a pain scale. Quality of pain is described as tender, Pain began 2-3 days ago. Neuro: Level of Consciousness is awake, alert, obeys commands, Oriented to person, place, time, situation, Radiology Supervisor are equal bilaterally Moves all extremities. Speech is normal, Facial symmetry appears normal, Pupils are PERRLA, Reports dizziness "when walking and getting out of bed" . Cardiovascular: Heart tones S1 S2 present Edema is absent. Rhythm is regular. Respiratory: Airway is patent Respiratory effort is even, unlabored, Respiratory pattern is regular, symmetrical, Breath sounds are clear bilaterally. Pt reports chronic cough and SOB that is worse, pt denies any sputum. GI: Abdomen is round non-distended, Bowel sounds present X 4 quads. Abd is soft and non tender X 4 quads. Patient currently denies diarrhea, nausea, vomiting. : No signs and/or symptoms were reported regarding the genitourinary system. EENT: No signs and/or symptoms were reported regarding the EENT system. Derm: Skin is pink, warm \\T\\ dry. Small laceration noted to arch of right foot with quater-sized swelling noted. FB (glass) removed by Dr. Cuellar at this time, no active bleeding noted. Musculoskeletal: Range of motion: intact in all extremities. 14:37 Reassessment: Wound to right foot cleaned with saline and dressed with Neosporin,non aa5 adherent dressing, and Kerlix. . 14:37 Reassessment: Patient is alert, oriented x 3, equal unlabored respirations, skin aa5 warm/dry/pink. 15:11 Reassessment: Patient is alert, oriented x 3, equal unlabored respirations, skin aa5 warm/dry/pink. Patient denies pain at this time. Pt sitting up in bed reading, pt states no complaints at this time. . 16:00 Reassessment: Pt assisted to restroom, pt voided, urine specimen collected. . aa5 16:00 Reassessment: Patient is alert, oriented x 3, equal unlabored respirations, skin aa5 warm/dry/pink. 16:44 Reassessment: Patient is alert, oriented x 3, equal unlabored respirations, skin aa5 warm/dry/pink. Patient denies pain at this time. 17:30 Reassessment: Patient is alert, oriented x 3, equal unlabored respirations, skin aa5 warm/dry/pink. Patient denies pain at this time. 18:30 Reassessment: Patient is alert, oriented x 3, equal unlabored respirations, skin aa5 warm/dry/pink. Patient denies pain at this time. 18:30 Reassessment: Pt assisted to restroom, pt voided. . aa5 19:20 Reassessment: Patient appears in no apparent distress at this time. Patient and/or cc3 family updated on plan of care and expected duration. Pain level reassessed. Patient is alert, oriented x 3, equal unlabored respirations, skin warm/dry/pink. Received this female patient from morning shift RN Cristy as a case of weakness, dizziness cardiomegaly for admission to room 215 after shift change. With IV cannula gauge 20 at the right ACV with ongoing IVF of NS at 125 mL/hr infusing well. General: Appears in no apparent distress. comfortable, Behavior is calm, cooperative, appropriate for age. Pain: Denies pain. Neuro: Level of Consciousness is awake, alert, obeys commands, Oriented to person, place, time, situation, Appropriate for age Radiology Supervisor are equal bilaterally Moves all extremities. Speech is normal, Facial symmetry appears normal, Pupils are PERRLA. Cardiovascular: Denies chest pain, Heart tones S1 S2 present Capillary refill < 3 seconds Patient's skin is warm and dry. Rhythm is regular. Respiratory: Airway is patent Respiratory effort is even, unlabored, Respiratory pattern is regular, symmetrical. GI: Abdomen is round non-distended, Patient currently denies diarrhea, nausea, vomiting. : No signs and/or symptoms were reported regarding the genitourinary system. EENT: No signs and/or symptoms were reported regarding the EENT system. Derm: Skin is intact, is healthy with good turgor, Skin is pink, warm \\T\\ dry. normal, right foot with dressing clean, dry and intact. Musculoskeletal: Circulation, motion, and sensation intact. Range of motion: intact in all extremities. Injury Description: Puncture sustained to arch of right foot. 19:32 Reassessment: Room available at 215, called for report but was told that ALAN vinson cc3 just call me back. 20:00 Reassessment: Patient appears in no apparent distress at this time. Patient and/or cc3 family updated on plan of care and expected duration. Pain level reassessed. Patient is alert, oriented x 3, equal unlabored respirations, skin warm/dry/pink. Report called and handed over to ALAN Seth for continuity of care and management. 20:45 Reassessment: Patient appears in no apparent distress at this time. Patient and/or cc3 family updated on plan of care and expected duration. Pain level reassessed. Patient is alert, oriented x 3, equal unlabored respirations, skin warm/dry/pink. Patient left ER for admission vitally stable by wheelchair escorted by ground control approach technician Inge. No valuables left in the patient's room. Patient denies pain at this time. Patient states feeling better. Patient states symptoms have improved. Vital Signs: 13:38 BP 123 / 99; Pulse 72; Resp 18 S; Temp 97.8(TE); Pulse Ox 97% on R/A; Weight 90.72 kg; iw Height 4 ft. 11 in. (149.86 cm); Pain 4/10; 14:40 BP 123 / 95; Pulse 78; Resp 18 S; Pulse Ox 96% on R/A; Pain 0/10; aa5 15:20 BP 120 / 89; Pulse 86; Resp 16 S; Pulse Ox 97% on R/A; aa5 16:35 BP 163 / 64 Supine; Pulse 62; Resp 16 S; Temp 98.0(O); Pulse Ox 97% on R/A; aa5 16:37 BP 150 / 89 Sitting; Pulse 61; aa5 16:39 BP 141 / 84 Standing; Pulse 65; aa5 17:30 BP 162 / 79; Pulse 60; Resp 20 S; Pulse Ox 97% on R/A; aa5 18:30 BP 174 / 76; Pulse 61; Resp 18 S; Pulse Ox 96% on R/A; aa5 19:31 BP 157 / 73; Pulse 66; Resp 17 S; Temp 98.5(O); Pulse Ox 96% on R/A; cc3 20:20 BP 155 / 77; Pulse 63; Resp 17 S; Pulse Ox 96% on R/A; cc3 13:38 Body Mass Index 40.39 (90.72 kg, 149.86 cm) iw 16:39 Pt c/o dizziness while standing up. was notified of orthostatics. aa5 NIH Stroke Scale Scores: 14:04 NIHSS Score: 0 [facility] ED Course: 13:12 Patient arrived in ED. as 13:12 Villa Mann MD is Private Physician. as 13:28 Ady Cuellar MD is Attending Physician. art 13:28 Cristy Bowman, RN is Primary Nurse. aa5 13:36 Triage completed. iw 13:38 Arm band placed on. iw 13:50 Patient has correct armband on for positive identification. Placed in gown. Bed in low aa5 position. Call light in reach. Side rails up X2. manager online on. Pulse ox on. NIBP on. 14:00 Initial lab(s) drawn, by me, sent to lab. Inserted saline lock: 20 gauge in right aa5 antecubital area, using aseptic technique. Blood collected. 14:50 XRAY Chest (1 view) In Process Unspecified. EDMS 14:50 Foot Right 3 View XRAY In Process Unspecified. EDMS 16:10 Urine collected: clean catch specimen, cloudy, alva colored. jb1 16:23 Villa Mann MD is Referral Physician. art 16:52 Lynne Archer MD is Hospitalizing Provider. art 19:00 Report given to ALAN Reyna. aa5 20:00 No provider procedures requiring assistance completed. Patient admitted, IV remains in cc3 place. Administered Medications: 14:37 Drug: Neosporin Ointment 1 application Route: Topical; Site: wound; aa5 14:40 Drug: NS 0.9% 500 ml Route: IV; Rate: bolus; Site: right antecubital; aa5 15:11 Follow up: IV Status: Completed infusion; IV Intake: 500ml aa5 14:41 Drug: Tetanus-Diphtheria Toxoid Adult 0.5 ml {[employer] Goods Machine Set Up Operator: [employer]. Exp: aa5 12/21/2020. Lot #: [id number]. } Route: IM; Site: right deltoid; 15:11 Follow up: Response: No adverse reaction aa5 15:11 Drug: NS 0.9% 1000 ml Route: IV; Rate: 125 ml/hr; Site: right antecubital; aa5 19:30 Follow up: Response: No adverse reaction; IV Status: Infusion continued upon admission cc3 16:44 Drug: Rocephin 1 grams Route: IV; Rate: per protocol; Site: right antecubital; aa5 17:00 Follow up: Response: No adverse reaction aa5 Intake: 15:11 IV: 500ml; Total: 500ml. aa5 Outcome: 16:24 Discharge ordered by . [facility] 16:53 Decision to Hospitalize by Provider. [facility] 20:00 Admitted to Med/surg accompanied by tech, via wheelchair, room 215, with chart, Report cc3 called to ALAN Seth 20:00 Condition: stable 20:00 Instructed on the need for admit, Demonstrated understanding of instructions. 20:52 Patient left the ED. cc3 NIH Stroke Scale - NIH Stroke Score Date: 05/10/2019 Time: 14:04 Total Score = 0 1a. Level of Consciousness (LOC) - 0(Alert) 1b. Level of Consciousness (LOC) (Year \\T\\ Age) - 0(Both) 1c. LOC Commands (Open \\T\\ Closes Eyes/Miner Assistant) - 0(Both) 2. Best Gaze (Lateral Gaze Paresis) - 0(Normal) 3. Visual Field Loss - 0(No visual loss) 4. Facial Palsy - 0(Normal) 5a. Left Arm: Motor (10-second hold) - 0(No drift) 5b. Right Arm: Motor (10-second hold) - 0(No drift) 6a. Left Leg: Motor (5-second hold - always test supine) - 0(No drift) 6b. Right Leg: Motor (5-second hold - always test supine) - 0(No drift) 7. Limb Ataxia (finger/nose \\T\\ heel/johnson - test with eyes open) - 0(Absent) 8. Sensory Loss (pinprick arms/legs/face) - 0(Normal) 9. Best Language: Aphasia (description/naming/reading) - 0(No aphasia) 10. Dysarthria (speech clarity - read or repeat words) - 0(Normal) 11. Extinction and Inattention (visual/tactile/auditory/spatial/personal) - 0(No abnormality) Initials: art Signatures: Dispatcher [employer] Giovanny Belle jb1 Ady Cuellar MD MD cha Martinez, Lula Jensen RN RN Cristy Bowman RN RN aa5 Maribell Tavera cc3 Corrections: (The following items were deleted from the chart) 18:34 13:38 Home Meds: amlodipine 5 mg tab 1 tab once daily; [facility] 18:34 13:38 Home Meds: donepezil 10 mg Oral tab 1 tab once daily; [facility] 18:34 13:38 Home Meds: escitalopram oxalate 20 mg Oral tab 1 tab once daily; [facility] 18:34 13:38 Home Meds: fenofibrate 150 mg Oral cap 1 cap once daily; [facility] 18:34 13:38 Home Meds: Hydrochlorothiazide Oral; [facility] 18:34 13:38 Home Meds: levothyroxine 125 mcg tab 1 tab once daily; [facility] 18:34 13:38 Home Meds: lovastatin 20 mg Oral tab 1 tab once daily; [facility] 18:34 13:38 Home Meds: metoprolol tartrate 50 mg Oral tab once daily; [facility] 18:34 13:38 Home Meds: omeprazole 40 mg Oral cpDR 1 cap once daily; [facility] 18:34 13:38 Home Meds: ropinirole 2 mg Oral tab 1 tab twice a day; [facility] 19:11 16:40 Reassessment: Patient is alert, oriented x 3, equal unlabored aa5 respirations, skin warm/dry/pink. Patient denies pain at this time. aa5
--- NOTE | 2019-05-10 16:25 | EDPHYS ---
Physician Documentation [facility] Name: aRdha Bentley Age: 78 yrs Sex: Female : 1940 Arrival Date: 05/10/2019 Time: 13:12 Bed 5 Private MD: [facility] ED Physician Ady Cuellar HPI: 05/10 13:59 This 78 yrs old Female presents to ER via Wheelchair with complaints of Foot art Pain, Dizziness. 13:59 The patient presents with decreased range of motion, pain, swelling, tenderness. The art complaints affect the right foot, right foot. Context: The problem was sustained at home. Historical: - Allergies: 13:38 Avelox; iw 13:38 Band-aid adhesive; iw - Home Meds: 18:34 bupropion HCl 150 mg Oral TbER 2 times per day [Active]; escitalopram oxalate 20 mg aa5 oral tab twice a day [Active]; omeprazole 40 mg Oral cpDR once daily [Active]; misoprostol 200 mcg oral tab once a day [Active]; amlodipine 5 mg tab once daily [Active]; metoprolol succinate 50 mg oral Tb24 once daily [Active]; ropinirole 2 mg oral tab twice a day [Active]; gabapentin 300 mg oral cap twice a day [Active]; potassium chloride 10 mEq Oral cpER once daily [Active]; levothyroxine 125 mcg tab once daily [Active]; amlodipine 5 mg tab 1 tab once daily [Active]; donepezil 10 mg oral tab once daily [Active]; aspirin 81 mg Oral chew 1 tab once daily [Active]; lovastatin 20 mg Oral tab 1 tab once daily [Active]; - PMHx: 13:38 Diverticulitis; Heart Murmur; Hyperlipidemia; Hypothyroidism; Pneumonia; Hypertension; iw - PSHx: 13:38 Hysterectomy; Knee surgery; Cholecystectomy; Appendectomy; shoulder surgery; breast iw reduction; - Immunization history:: Adult Immunizations up to date. - Social history:: Smoking status: Patient/guardian denies using tobacco. - Ebola Screening: : Patient negative for fever greater than or equal to 101.5 degrees Fahrenheit, and additional compatible Ebola Virus Disease symptoms Patient denies exposure to infectious person Patient denies travel to an Ebola-affected area in the 21 days before illness onset No symptoms or risks identified at this time. ROS: 14:01 Constitutional: Negative for fever, chills, and weight loss, Eyes: Negative for injury, art pain, redness, and discharge, ENT: Negative for injury, pain, and discharge, Neck: Negative for injury, pain, and swelling, Cardiovascular: Negative for chest pain, palpitations, and edema, Respiratory: Negative for shortness of breath, cough, wheezing, and pleuritic chest pain, Abdomen/GI: Negative for abdominal pain, nausea, vomiting, diarrhea, and constipation, Back: Negative for injury and pain, : Negative for injury, bleeding, discharge, and swelling, Neuro: Negative for headache, weakness, numbness, tingling, and seizure, Psych: Negative for depression, anxiety, suicide ideation, homicidal ideation, and hallucinations, Allergy/Immunology: Negative for hives, rash, and allergies, Endocrine: Negative for neck swelling, polydipsia, polyuria, polyphagia, and marked weight changes, Hematologic/Lymphatic: Negative for swollen nodes, abnormal bleeding, and unusual bruising. 14:01 MS/extremity: Positive for pain, swelling, tenderness, of the right foot. 14:01 Neuro: Positive for dizziness, weakness. Exam: 14:02 Constitutional: This is a well developed, well nourished patient who is awake, alert, art and in no acute distress. Head/Face: Normocephalic, atraumatic. Eyes: Pupils equal round and reactive to light, extra-ocular motions intact. Lids and lashes normal. Conjunctiva and sclera are non-icteric and not injected. Cornea within normal limits. Periorbital areas with no swelling, redness, or edema. ENT: Nares patent. No nasal discharge, no septal abnormalities noted. Tympanic membranes are normal and external auditory canals are clear. Oropharynx with no redness, swelling, or masses, exudates, or evidence of obstruction, uvula midline. Mucous membranes moist. Neck: Trachea midline, no thyromegaly or masses palpated, and no cervical lymphadenopathy. Supple, full range of motion without nuchal rigidity, or vertebral point tenderness. No Meningismus. Chest/axilla: Normal chest wall appearance and motion. Nontender with no deformity. No lesions are appreciated. Cardiovascular: Regular rate and rhythm with a normal S1 and S2. No gallops, murmurs, or rubs. Normal PMI, no JVD. No pulse deficits. Respiratory: Lungs have equal breath sounds bilaterally, clear to auscultation and percussion. No rales, rhonchi or wheezes noted. No increased work of breathing, no retractions or nasal flaring. Abdomen/GI: Soft, non-tender, with normal bowel sounds. No distension or tympany. No guarding or rebound. No evidence of tenderness throughout. Back: No spinal tenderness. No costovertebral tenderness. Full range of motion. Female : Normal external genitalia. Skin: Warm, dry with normal turgor. Normal color with no rashes, no lesions, and no evidence of cellulitis. Neuro: Awake and alert, GCS 15, oriented to person, place, time, and situation. Cranial nerves II-XII grossly intact. Motor strength 5/5 in all extremities. Sensory grossly intact. Cerebellar exam normal. Normal gait. Psych: Awake, alert, with orientation to person, place and time. Behavior, mood, and affect are within normal limits. 14:02 Musculoskeletal/extremity: Extremities: noted in the arch of right foot: laceration, pain, tenderness. Vital Signs: 13:38 BP 123 / 99; Pulse 72; Resp 18 S; Temp 97.8(TE); Pulse Ox 97% on R/A; Weight 90.72 kg; iw Height 4 ft. 11 in. (149.86 cm); Pain 4/10; 14:40 BP 123 / 95; Pulse 78; Resp 18 S; Pulse Ox 96% on R/A; Pain 0/10; aa5 15:20 BP 120 / 89; Pulse 86; Resp 16 S; Pulse Ox 97% on R/A; aa5 16:35 BP 163 / 64 Supine; Pulse 62; Resp 16 S; Temp 98.0(O); Pulse Ox 97% on R/A; aa5 16:37 BP 150 / 89 Sitting; Pulse 61; aa5 16:39 BP 141 / 84 Standing; Pulse 65; aa5 17:30 BP 162 / 79; Pulse 60; Resp 20 S; Pulse Ox 97% on R/A; aa5 18:30 BP 174 / 76; Pulse 61; Resp 18 S; Pulse Ox 96% on R/A; aa5 19:31 BP 157 / 73; Pulse 66; Resp 17 S; Temp 98.5(O); Pulse Ox 96% on R/A; cc3 20:20 BP 155 / 77; Pulse 63; Resp 17 S; Pulse Ox 96% on R/A; cc3 13:38 Body Mass Index 40.39 (90.72 kg, 149.86 cm) iw 16:39 Pt c/o dizziness while standing up. MD was notified of orthostatics. aa5 NIH Stroke Scale Scores: 14:04 NIHSS Score: 0 art MDM: 13:28 Patient medically screened. [facility] 14:04 Data reviewed: vital signs, nurses notes, lab test result(s), EKG, radiologic studies, art plain films. 05/10 13:27 Order name: Basic Metabolic Panel; Complete Time: 15:55 [facility] 05/10 13:27 Order name: CBC with Diff; Complete Time: 15:55 [facility] 05/10 13:27 Order name: LFT's; Complete Time: 15:55 [facility] 05/10 13:27 Order name: Magnesium; Complete Time: 15:55 [facility] 05/10 13:27 Order name: NT PRO-BNP; Complete Time: 15:55 [facility] 05/10 13:27 Order name: PT-INR; Complete Time: 15:55 [facility] 05/10 13:27 Order name: Troponin (emerg Dept Use Only); Complete Time: 15:55 [facility] 05/10 13:27 Order name: XRAY Chest (1 view); Complete Time: 15:55 [facility] 05/10 13:57 Order name: Foot Right 3 View XRAY; Complete Time: 15:55 [facility] 05/10 16:08 Order name: Urine Dipstick--Ancillary (enter results) em1 05/10 16:10 Order name: Urine Culture [facility] 05/10 13:27 Order name: EKG; Complete Time: 13:31 [facility] 05/10 13:27 Order name: Cardiac monitoring; Complete Time: 14:30 [facility] 05/10 13:27 Order name: EKG - Nurse/Tech; Complete Time: 14:30 [facility] 05/10 13:27 Order name: IV Saline Lock; Complete Time: 14:30 [facility] 05/10 13:27 Order name: Labs collected and sent; Complete Time: 14:30 [facility] 05/10 13:27 Order name: O2 Per Protocol; Complete Time: 14:30 [facility] 05/10 13:27 Order name: O2 Sat Monitoring; Complete Time: 14:30 [facility] 05/10 13:27 Order name: Urine Dipstick-Ancillary (obtain specimen); Complete Time: 16:07 [facility] 05/10 13:57 Order name: Wound dressing; Complete Time: 14:40 [facility] 05/10 15:59 Order name: Orthostatics; Complete Time: 16:44 [facility] 05/10 17:32 Order name: Diet Heart Healthy; Complete Time: 17:34 iw Administered Medications: 14:37 Drug: Neosporin Ointment 1 application Route: Topical; Site: wound; aa5 14:40 Drug: NS 0.9% 500 ml Route: IV; Rate: bolus; Site: right antecubital; aa5 15:11 Follow up: IV Status: Completed infusion; IV Intake: 500ml aa5 14:41 Drug: Tetanus-Diphtheria Toxoid Adult 0.5 ml {Air Reduction Equipment Operator: Parking Panda. Exp: aa5 12/21/2020. Lot #: [id number]. } Route: IM; Site: right deltoid; 15:11 Follow up: Response: No adverse reaction aa5 15:11 Drug: NS 0.9% 1000 ml Route: IV; Rate: 125 ml/hr; Site: right antecubital; aa5 19:30 Follow up: Response: No adverse reaction; IV Status: Infusion continued upon admission cc3 16:44 Drug: Rocephin 1 grams Route: IV; Rate: per protocol; Site: right antecubital; aa5 17:00 Follow up: Response: No adverse reaction aa5 Disposition: 05/10/19 16:53 Hospitalization ordered by Lynne Archer for Inpatient Admission. Preliminary diagnosis are Weakness, Dyspnea, Dizziness and giddiness, Cardiomegaly. - Bed requested for Telemetry/MedSurg (Inpatient). - Status is Inpatient Admission. cc3 - Condition is Fair. - Problem is new. - Symptoms have improved. UTI on Admission? Yes NIH Stroke Scale - NIH Stroke Score Date: 05/10/2019 Time: 14:04 Total Score = 0 1a. Level of Consciousness (LOC) - 0(Alert) 1b. Level of Consciousness (LOC) (Year \T\ Age) - 0(Both) 1c. LOC Commands (Open \T\ Closes Eyes/Ladler) - 0(Both) 2. Best Gaze (Lateral Gaze Paresis) - 0(Normal) 3. Visual Field Loss - 0(No visual loss) 4. Facial Palsy - 0(Normal) 5a. Left Arm: Motor (10-second hold) - 0(No drift) 5b. Right Arm: Motor (10-second hold) - 0(No drift) 6a. Left Leg: Motor (5-second hold - always test supine) - 0(No drift) 6b. Right Leg: Motor (5-second hold - always test supine) - 0(No drift) 7. Limb Ataxia (finger/nose \T\ heel/johnson - test with eyes open) - 0(Absent) 8. Sensory Loss (pinprick arms/legs/face) - 0(Normal) 9. Best Language: Aphasia (description/naming/reading) - 0(No aphasia) 10. Dysarthria (speech clarity - read or repeat words) - 0(Normal) 11. Extinction and Inattention (visual/tactile/auditory/spatial/personal) - 0(No abnormality) Initials: [facility] Signatures: Dispatcher [employer] EDAdy Booth MD MD cha Williams, Irene, RN RN iw Ronny Shukla em1 Cristy Bwoman RN RN aa5 Maribell Tavera cc3 Corrections: (The following items were deleted from the chart) 16:51 16:24 05/10/2019 16:24 Discharged to Home. Impression: Puncture wound without art foreign body, right foot - removed glass; Dizziness and giddiness; Cardiomegaly; Unspecified kidney failure - chronic. Condition is Stable. Discharge Instructions: Dizziness, Puncture Wound, Puncture Wound, [id number], Dizziness, [id number]. Prescriptions for Keflex 500 mg Oral Capsule - take 1 capsule by ORAL route every 6 hours for 7 days; 28 capsule. and Forms are Medication Reconciliation Form, Thank You Letter, Antibiotic Education, Prescription Opioid Use. Follow up: Villa Mann; When: 2 - 3 days; Reason: Recheck today's complaints, Continuance of care, Re-evaluation by your physician. Problem is new. Symptoms have improved. [facility] 18:21 16:53 Hospitalization Ordered by Lynne Archer MD for Inpatient Admission. em1 Preliminary diagnosis is Weakness; Dyspnea; Dizziness and giddiness; Cardiomegaly. Bed requested for Telemetry/MedSurg (Inpatient). Status is Inpatient Admission. Condition is Fair. Problem is new. Symptoms have improved. UTI on Admission? Yes. art 18:34 13:38 Home Meds: amlodipine 5 mg tab 1 tab once daily; [facility] 18:34 13:38 Home Meds: donepezil 10 mg Oral tab 1 tab once daily; [facility] 18:34 13:38 Home Meds: escitalopram oxalate 20 mg Oral tab 1 tab once daily; [facility] 18:34 13:38 Home Meds: fenofibrate 150 mg Oral cap 1 cap once daily; [facility] 18:34 13:38 Home Meds: Hydrochlorothiazide Oral; [facility] 18:34 13:38 Home Meds: levothyroxine 125 mcg tab 1 tab once daily; [facility] 18:34 13:38 Home Meds: lovastatin 20 mg Oral tab 1 tab once daily; [facility] 18:34 13:38 Home Meds: metoprolol tartrate 50 mg Oral tab once daily; [facility] 18:34 13:38 Home Meds: omeprazole 40 mg Oral cpDR 1 cap once daily; [facility] 18:34 13:38 Home Meds: ropinirole 2 mg Oral tab 1 tab twice a day; [facility] 20:52 18:21 05/10/2019 16:53 Hospitalization Ordered by Lynne Archer MD for Inpatient cc3 Admission. Preliminary diagnosis is Weakness; Dyspnea; Dizziness and giddiness; Cardiomegaly. Bed requested for Telemetry/MedSurg (Inpatient). Status is Inpatient Admission. Condition is Fair. Problem is new. Symptoms have improved. UTI on Admission? Yes. em1
[2019-05-10] MEDS ORDERED: CEFTRIAXONE/SWI 1gm 1 GM/10 ML SYR ONE (16:31)
[2019-05-10 20:27] LABS: Urine Blood NEGATIVE (NEG); Urine Glucose NEGATIVE (NEG); Urine Protein 2+ (NEG); Urine Specific Gravity >1.030 (1.005-1.030)
[2019-05-10] MEDS ORDERED: ACETAMINOPHEN 500 MG TAB PO PRN (21:24)
[2019-05-10] MEDS ORDERED: ONDANSETRON 4 MG/2 ML VIAL IV PRN (21:24)
[2019-05-10] MEDS ORDERED: ALBUTEROL 2.5 MG/3 ML NEB SOL NEB PRN (21:24)
[2019-05-10] MEDS ORDERED: IPRATROPIUM BROM 0.5MG/2.5ML NEB PRN (21:24)
[2019-05-10 23:11] VITALS: BMI 43.4
[2019-05-11] MEDS: NA CHLORIDE 0.9% 1,000 ML IV SCH ×2 (00:19→10:44)
--- NOTE | 2019-05-11 02:08 | HP ---
Date of Admission: 05/10/2019 Primary Care Physician: Dr. Mann. Chief Complaint: Dizziness and shard of glass in the foot. History Of Present Illness: The patient is a 78-year-old female with past medical history of hypertension, dyslipidemia, hypothyroidism, restless legs syndrome, GERD, depression, obesity, who has been having issues with falling and dizziness. The patient incidentally had trauma with a shard of glass in her foot and came into the ER for further evaluation. The foreign object was removed by the ER physician, Dr. Cuellar; however, the patient was felt to be weak, had orthostatic hypotension, was dizzy and therefore was referred for admission. The patient states that she has not been eating or drinking well recently and is unable to tell me which medication she takes on a regular basis. In the ER, her workup revealed a creatinine of 1.77, which is slightly above her baseline of about 1.3. The patient was then referred for admission. Past Medical History: Hypertension, hypothyroidism, dyslipidemia, restless legs syndrome, gastroesophageal reflux disease, depression. Surgical History: Bilateral knee replacement in 2006 and 2007, left shoulder replacement in 2011, breast reduction, gastric banding, removal of adhesions and scar tissue. Allergies: MOXIFLOXACIN, CODEINE. Medications: As per medication reconciliation list. Social History: The patient does not smoke. Does drink a glass of wine every now and then. Lives at home with her son and a lady. Fairly independent in her activities of daily living. Family History: Mom had breast cancer. Father had unknown type of cancer. Review of Systems: Ten-point system reviewed, negative except as per HPI. Physical Examination: Vital Signs: Blood pressure 123/99, pulse 72, respirations 18, temperature 97.8 , O2 97% on room air. Orthostatic vital signs systolic dropped from supine to standing. General: Awake, alert, oriented x3. Elderly female, morbidly obese. HEENT: Normocephalic, atraumatic. PERRLA. EOMI. Moist mucous membranes. Oropharynx is clear. Conjunctivae are anicteric. Neck: Supple. Trachea midline. No JVD. CV: S1, S2. Regular rate and rhythm. Peripheral pulses present. Respiratory: Moving air well bilaterally. No wheezing or stridor. No use of accessory muscles. Gastrointestinal: Abdomen is soft, nontender, nondistended. Positive bowel sounds. Extremities: No clubbing or cyanosis. Trace pedal edema. No calf tenderness. Neuro: Cranial nerves 2 through 12 intact grossly. No focal neurological deficit. Speech is normal. The patient does have some generalized weakness. Skin: No rashes. Normal skin turgor. incision site on foot c/d/i Laboratory Data: Sodium 140, potassium 4.4, chloride 107, CO2 of 29, BUN 21, creatinine 1.77, glucose 138, calcium 8.2, magnesium 2.4. Troponin less than 0.02. BNP 828. WBC 9.6, H and H 12.7 and 38.1, platelets 235. INR 0.96. UA is pending. X-ray shows prominent pes planus deformity with midfoot collapse and intertarsal degenerative changes medially. Spring ligament and PTT dysfunction are likely present and prominent swelling along the plantar aspect of the foot is seen without radiopaque foreign body. Small plantar calcaneal spur is also noted. Chest x-ray shows elevation of right hemidiaphragm noted chronic, lungs are grossly clear, heart mildly prominent size, hardware present in the proximal left humerus. Assessment And Plan: A 78-year-old female with: 1. Dizziness, likely related to orthostatic hypotension. We will need to obtain and verify patient's medications and adjust as necessary. Consult Cardiology. Place on telemetry to rule out any cardiac causes. Apparently, patient has seen Dr. Garcia in the past. 2. Acute on chronic kidney injury, stage 3. We will continue to monitor. Continue with IV fluids and avoid NSAIDs, likely due to prerenal azotemia and dehydration. 3. Acute dehydration. We will continue with IV fluids. 4. Generalized weakness. PT consultation. 5. Essential hypertension. 6. Dyslipidemia. We will continue home medications. 7. Hypothyroidism. Continue Synthroid. 8. Restless legs syndrome. 9. Gastroesophageal reflux disease without esophagitis. We will continue Prilosec. 10. Major depressive disorder. The patient is on Lexapro. 11. Morbid obesity. BMI of 40. 12. Deep venous thrombosis prophylaxis with Lovenox, renally dosed. 13. Foreign body in right foot s/p bedside removal in ER. Plan: Admit the patient to Med-Surg, place as observation. SHANNON Voice ID: [id number] [facility]
[2019-05-11 06:17] LABS: Absolute Lymphocytes (CBC) 1.3 K/uL (0.7-4.9); Basophils % 1.1 % (0-1.3); Lymphocytes % 16.6 % (15.3-44.8); MPV 8.3 fL (7.6-11.3); RBC Red Blood Cell Count 4.24 M/uL (3.86-4.86)
[2019-05-11 06:38] LABS: Albumin 3.1 g/dL (3.4-5.0); Bilirubin Total 0.3 mg/dL (0.2-1.0); Potassium 4.3 mmol/L (3.5-5.1); Protein, Total 6.6 g/dL (6.4-8.2)
[2019-05-11] MEDS ORDERED: ENOXAPARIN 30 MG/0.3 ML SQ SCH (09:00)
[2019-05-11 09:52] VITALS: O2SAT 96
--- NOTE | 2019-05-11 10:24 | EKG ---
Test Date: 2019-05-10 Test Time: 14:12:05 Licensed Architect: TALA MEASUREMENT RESULTS: Intervals: Rate: 55 AK: 226 QRSD: 112 QT: 460 QTc: 440 [place]: P: 76 AK: 226 QRS: -36 T: 11 INTERPRETIVE STATEMENTS: Sinus bradycardia with 1st degree AV block Left axis deviation Pulmonary disease pattern Incomplete right bundle branch block Voltage criteria for left ventricular hypertrophy Abnormal ECG Compared to ECG 09/23/2018 20:27:25 Sinus rhythm no longer present Electronically Signed On 05-11-19 10:23:15 CDT by Sumanth Lucero
[2019-05-11 13:45] VITALS: BP 194/90
[2019-05-11 14:14] VITALS: TEMP 97.4
--- NOTE | 2019-05-11 14:38 | DS ---
Date of Discharge: 05/11/2019 Car Stereo Installer: Dr. Lucero with Cardiology. Discharge Diagnoses: 1.Dizziness. 2.Generalized weakness. 3.Morbid obesity. 4.Essential hypertension. 5.Acute dehydration. 6.Acute on chronic kidney injury stage 3. 7.Dyslipidemia. 8. . 9.Restless legs syndrome. 10.Gastroesophageal reflux disease without esophagitis. 11.Major depressive disorder. Hospital Course: Patient is a 78-year-old female with past medical history of hypertension, dyslipid emia, restless legs syndrome, hypothyroidism, who has been having dizzy spells and has been worked up by Neurology in the past with MRI of the brain by Dr. Garcia. Patient comes into the hospital with a shard of glass in her foot which was taken out by the ER physician. The patient also had some dizzi ness and was found to be orthostatic and dehydrated. She had elevation in her creatinine above her b aseline. Therefore, was admitted to the hospital for further evaluation. Patient was started on IV fluids. Her orthostatic vital signs were positive. She was recommended to get up slowly to avoid sy ncopal episode from the orthostatic . Cardiology was consulted. The patient was then hsoea red for discharge and was sent home in a stable condition. Activity: Fall precautions. Medications: As per medication reconciliation list. Followup: Follow up with primary care physician, Dr. Mann in 2-3 days. Follow up with Dr. Garcia, Neurology as scheduled. Follow up with Dr. Lucero, Cardiology in 2 weeks. Return to ER for worseni ng condition. Physical Examination: General: Awake, alert, oriented x3, not in any acute distress. Morbidly obese female. CV: S1, S2. No murmurs. Respiratory: Moving air well bilaterally. Abdomen: Abdomen is soft, nontender, nondistended. Positive bowel sounds. Extremities: No clubbing, cyanosis, or edema. Neurologic: Nonfocal. SA/MODL Voice ID: [id number] Report ID: [id number]
--- NOTE | 2019-05-11 15:16 | CON ---
Identification: A 78-year-old woman. Chief Complaint: Dizziness and falling. History Of Present Illness: Ms. Bentley says she has been having her problem with falling for many ye ars. Sometimes she gets dizzy when she first stands up. Sometimes she gets dizzy and falls when she bends over and then stands up. Sometimes there is no orthostatic provocation. Sometimes it is trip ping, but she averages a couple of falls a week and that is steady for the last 2 years. She says th ere has been no syncope. She also has a history of a wound. She stepped on a piece of glass. Her r ight foot has a wound. Outpatient Medications: Gabapentin, Lexapro, ropinirole, metoprolol, levothyroxine, omeprazole, amlo dipine, misoprostol, lovastatin, donepezil, potassium chloride, and bupropion. Past Medical History: She has longstanding hypertension, obesity, hypothyroidism. Does not have afua betes. No history of myocardial infarction, stroke, vascular disease, blood clots, atrial fibrillati on. Allergies: SHE REPORTS DRUG INTOLERANCE TO MOXIFLOXACIN AND ADHESIVE TAPE. Physical Examination: Vital Signs: She is 4 feet 11 inches, 215 pounds, body mass index 43, morbidly obese. Blood pressur e is 155/76. There have been no blood pressures recorded with her sitting or standing. They are all supine and the lowest one is 120/89. Cardiac: There is no cardiac abnormality on physical exam. Carotids have no bruit. Abdomen: Soft. Extremities: Mild edema. Distal pulses are palpable. Diagnostic Studies: An electrocardiogram reveals sinus bradycardia, heart rate 55, first degree AV b lock, left axis pulmonary disease pattern, IVCD, voltage for LVH. Impression: My impression is that the patient may or may not have orthostatic hypotension. If so, t he first order of business would be to cut down on amlodipine and metoprolol. Metoprolol is given he re in the hospital, which she takes as an outpatient, so that is another medicine she might be able t o cut back on, but the first thing is to demonstrate whether she actually has orthostatic hypotension . So, we should check orthostatic vital signs and an echocardiogram and carotid Doppler might be hel pful in deciding whether she perhaps has subclavian steal syndrome or cardiomyopathy. ADARSH/DAPHNEY Voice ID: [id number] Report ID: [id number]
[2019-05-11] MEDS ORDERED: DONEPEZIL HCL 5 MG TAB PO SCH (21:00)
[2019-05-11] MEDS ORDERED: GABAPENTIN 300 MG CAP PO SCH (21:00)
[2019-05-11] MEDS ORDERED: ESCITALOPRAM 20 MG TAB PO SCH (21:00)
[2019-05-11] MEDS ORDERED: ROPINIROLE HCL 1 MG TAB PO SCH (21:00)
[2019-05-11] MEDS ORDERED: ATORVASTATIN 10 MG TAB PO SCH (21:00)
[2019-05-11] MEDS ORDERED: BUPROPION HCL XL 150 MG TAB PO SCH (21:00)
[2019-05-12] MEDS ORDERED: LEVOTHYROXINE SOD 0.125 MG TAB PO SCH (06:30)
[2019-05-12] MEDS ORDERED: PANTOPRAZOLE 40MG TABLET PO SCH (07:30)
[2019-05-12] MEDS ORDERED: METOPROLOL XL 25 MG TAB PO SCH (09:00)
[2019-05-12] MEDS ORDERED: HOME MED 1 EA UNK (Lovastatin [Lovastatin] 20 MG) PO SCH (09:00)
[2019-05-12] MEDS ORDERED: HOME MED 1 EA UNK (Omeprazole [Prilosec] 40 MG) PO SCH (09:00)
[2019-05-12] MEDS ORDERED: miSOPROStol 100 MCG TAB PO SCH (09:00)
[2019-05-12] MEDS ORDERED: MISOPROSTOL PO SCH (09:00)
[2019-05-12] MEDS ORDERED: HOME MED 1 EA UNK (Donepezil Hcl [Aricept] 10 MG) PO SCH (09:00)
[2019-05-12] MEDS ORDERED: AMLODIPINE 5 MG TAB PO SCH (09:00)
[2019-05-12] MEDS ORDERED: POTASSIUM CL SA 10 MEQ TAB PO SCH (09:00)
== END 2019-05-11 14:46 | disposition home or self-care (01) ==
LOC: ER 13:11 → ERHOLD 18:02 → 2ND 20:37
PROVIDERS: ADMIT Family Medicine; ATTEND Family Medicine
DX: R42 Dizziness and giddiness (principal); E86.0 Dehydration; S91.321A Laceration with foreign body, right foot, initial encounter; W25.XXXA Contact with sharp glass, initial encounter; W45.8XXA Other foreign body or object entering through skin, initial encounter; R00.1 Bradycardia, unspecified; I44.0 Atrioventricular block, first degree; I12.9 Hypertensive chronic kidney disease with stage 1 through stage 4 chronic kidney disease, or unspecified chronic kidney disease; N18.3 Chronic kidney disease, stage 3 (moderate); N17.9 Acute kidney failure, unspecified; R53.1 Weakness; E78.5 Hyperlipidemia, unspecified; E03.9 Hypothyroidism, unspecified; G25.81 Restless legs syndrome; K21.9 Gastro-esophageal reflux disease without esophagitis; F32.9 Major depressive disorder, single episode, unspecified; I51.7 Cardiomegaly; M77.31 Calcaneal spur, right foot; E66.01 Morbid (severe) obesity due to excess calories; Z68.41 Body mass index [BMI] 40.0-44.9, adult; Z79.899 Other long term (current) drug therapy; Z23 Encounter for immunization; Z98.84 Bariatric surgery status
CPT/HCPCS: 96361; 93005; 87088; 85025 ×2; 87086; 80048; 36415; 83735; 85610; 82962; 80076; 81003; 84484; 80053; 83880; 71045; 73630; 90471; 90714; 97161; 94760 ×2; 96374; 99285; J1650; J0696; J7030 ×2; G0378 ×2

== ENCOUNTER 2019-06-16 23:14 | Inpatient (IN) | payer OTHER ==
--- OUTSIDE RECORDS SUMMARY | 2019-06-16 23:18 | XMS REPORT | Continuity of Care Document ---
:1940 Author Organization [employer] Care Team Providers Name Role Phone [employer] Unavailable Unavailable Problems Problem Status Onset Classification [...] 10/07/[address] [facility] [address] [place] [id number] Active Finding 10/07/[address] [address] kidney injury [...] 03/24/2019 [facility] Hypothyroidism Active Problem 03/24/2019 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/24/2019 [facility] disorder, Neuro systemic arterial (disorder) Hyperlipidemia Active Problem 05/24/2019 [facility] (disorder) [facility] Hypothyroidism Active Problem 05/24/2019 [facility] (disorder) [facility] Memory impairment Active Problem 05/24/2019 [facility] (finding) Neuro Morbid obesity Active Problem 05/24/2019 [facility] (disorder) Neuro Recurrent falls Active Problem 05/24/2019 [facility] (finding) Neuro Transient Active Problem 05/24/2019 [facility] ischemic attack Neuro (disorder) Medications Medication Details Route Status Patient Ordering Order Source Instructions Provider Date Walker 1 ea, Active MISC, 2019 Neuro Daily, # 1 ea, 0 Refill(s) Adult Aspirin 81 mg 81 mg=1 Active oral tablet, chewable tab, CHEW, 2018 [facility] Daily, # 30 tab, 3 Refill(s), Pharmacy: [id number] levothyroxine 125 mcg 125 Active (0.125 mg) oral microgram= 2019 Neuro tablet 1 tab, PO, Daily, # 30 tab, 0 Refill(s) gabapentin 300 MG 300 mg=1 Active Oral Capsule cap, PO, 2019 Neuro BID, # 90 cap, 1 Refill(s) metoprolol 50 mg oral 50 mg=1 Active 02/21/ [facility] tablet, extended tab, PO, 2019 Neuro release Daily, # 30 tab, 0 Refill(s) Escitalopram 20 MG 20 mg=1 Active 02/21/ [facility] Tablet [Lexapro] tab, PO, 2019 Neuro Daily, # 30 [...] mg=1 Active 02/21/ [facility] tablet tab, PO, 2018 Neuro Daily, # 30 tab, 0 Refill(s) donepezil 10 mg oral 10 mg=1 Active 02/21/ [facility] tablet tab, PO, 2019 Neuro Daily, # 30 tab, 0 Refill(s) ProAir HFA 1 - 2 Active 02/21/ [facility] puffs, PO, 2019 Neuro Q4H, PRN Wheezing / cough / shortness of breath, # 1 ea, 0 Refill(s) Cholestyramine/Asp 0500,2300 Active Mo . 2017 [facility] [place] Vancomycin Hcl Q6H Active Mo 10/07/ 2017 [facility] [place] Donepezil Hcl DAILY Active 10/03/ . 2017 [facility] [place] Lisinopril DAILY Active 2017 [facility] [place] Lovastatin DAILY Active 01/03/ [facility] [place] Misoprostol DAILY Active [facility] St[facility] 2018 [facility] [place] Albuterol Sulfate TWICE Active [facility] DAILY 2018 [facility] [place] Meclizine Hcl TWICE Active [facility] DA[facility] PRN 2014 [facility] [place] Vertigo Diclofenac TWICE Active [facility] St. Sodium/Misoprostol DAILY 2014 [facility] [place] Amlodipine DAILY Active [facility] St[facility] 2014 [facility] [place] Omeprazole DAILY Active [facility] St[facility] 2014 [facility] [place] Diclofenac TWICE Active [facility] St. Sodium/Misoprostol DAILY 2012 [facility] [place] Escitalopram Oxalate DAILY Active [facility] St[facility] 2012 [facility] [place] Gabapentin TWICE Active [facility] St[facility] DAILY 2012 [facility] [place] Hydrochlorothiazide DAILY Active [facility] St[facility] 2012 [facility] [place] Levothyroxine DAILY Active [facility] St[facility] 2012 [facility] [place] Metoprolol Succinate DAILY Active [facility] St[facility] 2012 [facility] [place] Naproxen Sodium Inactive [facility] St[facility] 2012 [facility] [place] Ropinirole Hcl TWICE Active [facility] St[facility] DAILY 2012 [facility] [place] Donepezil DAILY Active [facility] [place] Aspirin DAILY Active [facility] St[facility] 2012 [facility] [place] Irbesartan DAILY Active [facility] St[facility] 2012 [facility] [place] Diphenox/Atropine NEEDED Active [facility] St[facility] PRN For 2011 [facility] Diarrhea [place] Sulfamethoxazole/Trim TWICE Active [facility] St. ethoprim DAILY 2011 [facility] [place] Allergies, Adverse Reactions, Alerts Substance Category Reaction Severity Reaction Status Date Comments Source type Reported moxifloxacin Itching/H Moderate Allergy to Active [facility] St. HCl kaleb/Rash Substance 8 [facility] [place] adhesive Rash Moderate Propensity Active [facility] St. to adverse 8 [facility] reactions [place] band-aid Unknown Allergy to Active [facility] St. adhesive Substance 8 [facility] [place] Avelox Assertion MT^Mild Drug Active [facility] allergy Neuro Immunizations Immunization Date Given Site Status Last Comments Source Updated Influenza Adult 07/22/2013 completed [facility] LuIntellinX Vaccine - [place] Pneumovax 08/13/2011 completed [facility] [place] Results Order Name Results Value Reference Date Interpretation Comments Source Range Laboratory Sodium Level 141 135 - 145 10/07 [facility] St. Studies /2018 [facility] [place] Laboratory Potassium 5.0 3.6 - 5.0 10/07 [facility]. Studies Level /2018 [facility] [place] Laboratory Phosphorus 3.9 2.5 - 4.3 10/07 [facility] Studies Level /2017 [facility] [place] Laboratory Magnesium 2.2 1.8 - 2.5 10/07 [facility] Studies Level /2017 [facility] [place] Laboratory Glucose Level 96 65 - 120 10/07 [facility] . Studies /2017 [facility] [place] Laboratory Estimat 39 90 10/07 [facility]. Studies Glomerular /2017 [facility] Filtration [place] Rate Laboratory Creatinine 1.34 0.44 - 10/07 [facility] Studies 1.00 [facility] [place] Laboratory Chloride 112 101 - 111 10/07 [facility]. Studies Level /2017 [facility] [place] Laboratory Carbon 26 21 - 31 10/07 [facility]. Studies Dioxide Level /2017 [facility] [place] Laboratory Calcium Level 8.2 8.5 - 10.5 10/07 [facility]. Studies /2018 [facility] [place] Laboratory Blood Urea 29 6 - 20 10/07 [facility]. Studies Nitrogen /2017 [facility] [place] Laboratory Albumin 3.3 3.2 - 5.5 10/07 [facility]. Studies /2018 [facility] [place] Laboratory Thyroid 3.22 0.34 - 10/06 [facility] Studies Stimulating 5.60 /2017 [facility] Hormone (TSH) [place] Laboratory White Blood 6.7 4.3 - 10.9 10/06 [facility]. Studies Count /2017 [facility] [place] Laboratory Red Cell 14.6 12.1 - 10/06 [facility]. Studies Distribution 15.2 /2017 [facility] Width [place] Laboratory Red Blood 3.53 3.86 - 10/06 [facility]. Studies Count 4.86 /2017 [facility] [place] Laboratory Platelet 152 152 - 406 10/[address] Studies Count /2018 [facility] [place] Laboratory Neutrophils % 66.5 41.7 - 10/06 [facility] St. Studies 73.7 /2017 [facility] [place] Laboratory Monocytes % 10.4 3.3 - 12.3 10/06 [facility] St. Studies /2017 [facility] [place] Laboratory Mean Platelet 9.0 7.6 - 11.3 10/06 [facility] St. Studies Volume /2017 [facility] [place] Laboratory Mean 85.1 80 - 100 10/06 [facility] St. Studies Corpuscular /2017 [facility] Volume [place] Laboratory Mean 33.1 32.0 - 10/06 [facility] St. Studies Corpuscular 36.0 /2017 [facility] Hemoglobin [place] Concent Laboratory Mean 28.1 27.0 - 10/06 [facility]. Studies Corpuscular 35.0 /2017 [facility] Hemoglobin [place] Laboratory Lymphocytes % 18.2 15.3 - 10/06 [facility] St. Studies 44.8 /2017 [facility] [place] Laboratory Hemoglobin 9.9 12.0 - 10/06 [facility] St. Studies 15.0 /2017 [facility] [place] Laboratory Hematocrit 30.1 36.0 - 10/06 [facility] St. Studies 45.0 /2017 [facility] [place] Laboratory Eosinophils % 4.0 0 - 4.4 10/06 [facility] St. Studies /2017 [facility] [place] Laboratory Basophils % 0.9 0 - 1.3 10/06 [facility] St. Studies /2017 [facility] [place] Laboratory Absolute 4.5 1.8 - 8.0 10/06 [facility] St. Studies Neutrophil /2017 [facility] [place] Laboratory Absolute 0.7 0.1 - 1.3 10/06 [facility] St. Studies Monocytes /2017 [facility] (CBC) [place] Laboratory Absolute 1.2 0.7 - 4.9 10/06 [facility]. Studies Lymphocytes /2017 [facility] (CBC) [place] Laboratory Absolute 0.3 0 - 0.5 10/06 [facility] St. Studies Eosinophils /2017 [facility] (CBC) [place] Laboratory Absolute 0.1 0 - 0.5 10/06 [facility] St. Studies Basophils /2017 [facility] (CBC) [place] Laboratory Urine Random 7 10/05 [facility] St[facility] Studies Total Protein /2017 [facility] [place] Laboratory Urine 0.22 10/[address] Studies Protein/Creat /2017 [facility] inine Ratio [place] Laboratory Urine 31.4 10/05 [facility] St[facility] Studies Creatinine /2017 [facility] [place] Laboratory Urine pH 6.0 10/05 St. Studies /2017 [facility] [place] Laboratory Urine 0.2 10/05 [facility] St. Studies Urobilinogen /2017 [facility] [place] Laboratory Urine Total Urine Total 10/05 [facility] St[facility] Studies Protein Protein /2017 [facility] [place] Laboratory Urine 1.010 10/05 [facility] St[facility] Studies Specific /2017 [facility] Ney [place] Laboratory Urine Nitrite Urine 10/05 [facility] St[facility] Studies Nitrite /2017 [facility] [place] Laboratory Urine Urine 10/05 [facility] St[facility] Studies Leukocyte Leukocyte /2017 [facility] - Esterase Esterase [place] Laboratory Urine Ketones Urine 10/05 [facility] St. Studies Ketones /2017 [facility] [place] Laboratory Urine Glucose Urine 10/05 [facility] St[facility] Studies Glucose [facility] [place] Laboratory Urine Color Urine Color 10/05 [facility] St[facility] Studies /2017 [facility] [place] Laboratory Urine Blood Urine Blood 10/05 [facility] St[facility] Studies /2017 [facility] [place] Laboratory Urine Urine 10/05 [facility] St. Studies Bilirubin Bilirubin /2017 [facility] [place] Laboratory Urine Urine 10/05 [facility] St[facility] Studies Appearance Appearance /2017 [facility] [place] Laboratory Uric Acid 8.9 2.6 - 8.0 10/05 [facility] St[facility] Studies /2017 [facility] [place] Laboratory Creatine 105 22 - 269 10/05 [facility] St[facility] Studies Kinase /2017 [facility] [place] Microbiolog Meth Meth 10/03 [facility] St[facility] y Studies Resistant Resistant /2017 [facility] Staph Aureus Staph [place] Aureus Laboratory Total 0.6 0.3 - 1.2 10/02 [facility] St. Studies Bilirubin /2017 [facility] [place] Laboratory Serum Total 6.1 6.0 - 8.3 10/02 [facility] St. Studies Protein /2017 [facility] [place] Laboratory Globulin 2.5 2.3 - 3.5 10/02 [facility] St. Studies /2018 [facility] [place] Laboratory Direct 0.1 0 - 0.2 10/02 [facility] St[facility] Studies Bilirubin /2017 [facility] [place] Laboratory Aspartate 17 10 - 42 10/02 [facility] St. Studies Amino Transf /2017 [facility] (AST/SGOT) [place] Laboratory Amylase Level 34 28 - 100 10/02 St. Studies /2017 [facility] [place] Laboratory Alkaline 62 42 - 121 10/02 [facility] St[facility] Studies Phosphatase /2017 [facility] [place] Laboratory Albumin/Globu 1.4 1.1 - 1.8 10/02 [facility] St. Studies kelsey Ratio /2017 [facility] [place] Laboratory Alanine 12 10 - 60 10/02 [facility] St. Studies Aminotransfer /2017 [facility] ase [place] (ALT/SGPT) Laboratory Lipase 32 22 - 51 10/02 [facility] St. Studies /2017 [facility] [place] Laboratory Urine WBC <5 10/02 St. Studies /2017 [facility] [place] Laboratory Urine <5 10/02 [facility] St[facility] Studies Squamous [facility] Epithelial [place] Cells Laboratory Urine RBC <5 10/02 [facility] St. Studies /2017 [facility] [place] Laboratory Urine Hyaline Urine 10/02 [facility]. Studies Casts Hyaline /2017 [facility] Casts [place] Laboratory Urine Culture Urine 10/02 [facility]. Studies Reflexed Culture /2017 [facility] Reflexed [place] Laboratory Urine <20 10/02 [facility] St. Studies Bacteria /2017 [facility] [place] Laboratory Stool Fat Stool Fat 09/28 [facility]. Studies Screen Screen [facility] [place] Microbiolog Escherichia Escherichia 07/25 [facility] St[facility] y Studies Coli Coli /2016 [facility] [place] Laboratory B-Type 177 07/23 [facility]. Studies Natriuretic [facility] Peptide [place] Laboratory Rapid <0.03 07/23 [facility]. Studies Troponin I /2016 [facility] [place] Laboratory Prothrombin 12.1 9.5 - 12.5 07/23 [facility] St. Studies Time /2016 [facility] [place] Laboratory INR 1.03 07/23 [facility]. Studies International /2016 [facility] Normalized [place] Ratio Laboratory Activated 25.8 24.3 - 07/23 [facility]. Studies Partial 36.9 [facility] Thromboplast [place] Time Pathology Reports No Data Provided for This Section Diagnostic Reports No Data Provided for This Section Consultation Notes No Data Provided for This Section Discharge Summaries No Data Provided for This Section History and Physicals No Data Provided for This Section Vital Signs Vital Sign Value Date Comments Source Systolic (mm Hg) 140 05/21/2019 [facility] Diastolic (mm Hg) 73 05/21/2019 [facility] Neuro Heart Rate 61 05/21/2019 [facility] Respitory Rate 16 05/21/2019 [facility] Height 149.86 cm 05/21/2019 [facility] Weight 97.273 05/21/2019 [facility] BMI Calculated 43.31 05/21/2019 [facility] Height 147.32 cm 03/21/2019 [facility] Weight 98.182 03/21/2019 [facility] BMI Calculated 45.24 03/21/2019 [facility] Respitory Rate 16 03/21/2019 [facility] Heart Rate 78 03/21/2019 [facility] Systolic (mm Hg) 156 03/21/2019 [facility] Diastolic (mm Hg) 83 03/21/2019 [facility] Height 149.86 cm 02/21/2019 [facility] Neuro Weight 90.909 02/21/2019 [facility] Neuro BMI Calculated 40.48 02/21/2019 [facility] Neuro Respitory Rate 16 02/21/2019 [facility] Neuro Heart Rate 63 02/21/2019 [facility] Neuro Systolic (mm Hg) 154 02/21/2019 [facility] Neuro Diastolic (mm Hg) 85 02/21/2019 [facility] Neuro Temperature Oral (F) 97.6 F 10/07/2017 [facility] [place] Heart Rate 63 10/07/[address] [facility] [facility] [place] Respitory Rate 18 10/07/[address] [facility] [place] Systolic (mm Hg) 160 10/07/[address] [facility] [place] Diastolic (mm Hg) 76 10/07/[address] [facility] [place] Weight 227 10/07/2017 [facility] [place] Height 59 10/03/[address] [facility] [facility] [place] Encounters Location Location Encounter Encounter Reason Attending ADM DC Status Source Details Type Number For Provider Date Date Visit QUINTIN Hollis Departed [id number] 07/23 07/23 [facility] Emergency [facility]2016 [facility] [place] [facility] Hollis Registered [id number] 08/30 [facility] Ref[facility]2016 [facility] [place] [facility] Registered [id number] 09[facility]20 [facility] [place] [facility] Reg[facility] [id number] 09/[address] [facility] Ref[facility]2016 [facility] [place] [facility] Dis[facility] [id number] 10/05 10/[address] [facility]2017 [facility] [place] [facility] Outpatient [id number] Jeffrey 02/21 02/22 [facility] Neurology [facility] /2018 [facility] Outpatient [id number] Jeffrey 03/[address] [facility]NA Outpatient [id number] Jeffrey 03/21 03/22 [facility] Neurology Kre /2018 [facility] Outpatient [id number] Jeffrey 05/21 [facility] [place] MNA Outpatient [id number] Jeffrey 05/21 05/22 [facility] Neurology [facility] /2018 Neuro [facility] Outpatient [id number] Jeffrey 07/24 [facility] [place] Procedures Procedure Code Date Perfomer Comments Source Occult Blood 10/06/[address] [facility] [place] Fecal Leukocyte 10/06/2017 [facility] Stain [place] Abdomen & Pelvis [id number] 10/02/2017 [facility] [place] [facility] W Contrast [place] Culture & [id number] 09/28/2017 [facility] Sensitivity [place] Delta Count [id number] 07/23/2017 [facility] [place] [id number] 07/23/2017 [facility] [place] Chest For Pe [id number] 07/23/2017 [facility] Angio [place] Chest Single View [id number] 07/23/2017 [facility] [place] Assessment and Plan No Data Provided for This Section Plan of Care Plan of Care Date Source Instructions 10/07/[address] [facility] [place] DI for Abdominal Pain-Adult Instructions 10/07/[address] [facility] [place] DI for Abdominal Pain-Adult Social History Social History Date Source Social History TypeResponse 05/21/2019 [facility] Smoking Status Former smoker; Type: Cigarettes; Exposure to Tobacco Smoke None; Cigarette Smoking Last 365 Days No; Reg Smoking Cessation Counseling No entered on: 05/21/19 Query Response Date Recorded Comment 10/07/2017 [facility] Gonzaleznela Raisa Ayalasylvia Alcohol Use? Yes October 03, 2017 3:24am CD- Drugs? No October 03, 2017 3:24am Query Response Start Date Stop Date Smoking Status Never smoker Family History Value Date Source Query Response Instance Date Recorded Comment 10/07/2017 [facility] Gonzaleznela Raisa Meneses Nurses notes BREAST MOM October 03, 2017 [...] Advance Directive Response Recorded Date/Time 10/07/2017 QU[facility] ReynoldsOsman [place] - Does Patient Have Living Will [place] No October 07, 2017 6:00am Durable Power of [employer]er for Health Care No October 03, 2017 3:24am Would you like additional information No October 03, 2017 12:19am Functional Status No Data Provided for This Section
--- OUTSIDE RECORDS SUMMARY | 2019-06-16 23:18 | XMS REPORT ---
:1940 Author [facility] Address [address] [place] [address] Dr. Ryan [address] [place] [id number] Care Team Providers Name Role Phone Unavailable Unavailable Unavailable Problems This patient has no known problems. Allergies, Adverse Reactions, Alerts This patient has no known allergies or adverse reactions. Medications This patient has no known medications.
[2019-06-16] MEDS ORDERED: NA CHLORIDE 0.9% 1,000 ML ONE (23:38)
[2019-06-16] MEDS ORDERED: ONDANSETRON 4 MG/2 ML VIAL ONE (23:38)
[2019-06-17 00:06] LABS: Absolute Lymphocytes (CBC) 0.4 K/uL (0.7-4.9); Basophils % 0.1 % (0-1.3); Hematocrit 39.7 % (36.0-45.0); Lymphocytes % 4.3 % (15.3-44.8); MPV 8.3 fL (7.6-11.3); RBC Red Blood Cell Count 4.61 M/uL (3.86-4.86)
[2019-06-17 00:21] LABS: Albumin 3.6 g/dL (3.4-5.0); Bilirubin Direct 0.1 mg/dL (0-0.2); Bilirubin Total 0.4 mg/dL (0.2-1.0); Potassium 3.6 mmol/L (3.5-5.1); Protein, Total 7.5 g/dL (6.4-8.2)
--- NOTE | 2019-06-17 02:27 | EDPHYS ---
Physician Documentation [facility] Name: Radha Bentley Age: 78 yrs Sex: Female : 1940 Arrival Date: 06/16/2019 Time: 23:19 Bed 14 Private MD: Villa Mann ED Physician Lavon Dominguez HPI: 06/17 04:22 This 78 yrs old Female presents to ER via Ambulatory with complaints of tw4 Nausea/Vomiting/Diarrhea. 04:22 The patient presents to the emergency department with nausea, that is moderate, tw4 vomiting, diarrhea, 5 times today. Onset: The symptoms/episode began/occurred just prior to arrival, today. Possible causes: bad food exposure, SOUP. The symptoms are aggravated by nothing. The symptoms are alleviated by nothing. Associated signs and symptoms: Pertinent positives: abdominal pain. Severity of symptoms: At their worst the symptoms were moderate in the emergency department the symptoms are unchanged. The patient has not experienced similar symptoms in the past. Historical: - Allergies: 06/16 23:33 Band-aid adhesive; ak1 23:33 Avelox; ak1 - Home Meds: 23:33 amlodipine 5 mg tab once daily [Active]; amlodipine 5 mg tab 1 tab once daily [Active]; ak1 aspirin 81 mg Oral chew 1 tab once daily [Active]; bupropion HCl 150 mg Oral TbER 2 times per day [Active]; donepezil 10 mg Oral tab once daily [Active]; escitalopram oxalate 20 mg Oral tab twice a day [Active]; gabapentin 300 mg Oral cap twice a day [Active]; levothyroxine 125 mcg tab once daily [Active]; ropinirole 2 mg Oral tab twice a day [Active]; potassium chloride 10 mEq Oral TbER once daily [Active]; omeprazole 40 mg Oral cpDR once daily [Active]; misoprostol 200 mcg Oral tab once a day [Active]; metoprolol succinate 50 mg Oral Tb24 once daily [Active]; lovastatin 20 mg Oral tab 1 tab once daily [Active]; - PMHx: 23:33 Diverticulitis; Heart Murmur; Hyperlipidemia; Hypertension; Pneumonia; Hypothyroidism; ak1 - PSHx: 23:33 Hysterectomy; Cholecystectomy; Appendectomy; breast reduction; shoulder surgery; Knee ak1 surgery; - Immunization history:: Adult Immunizations unknown. - Social history:: Smoking status: Patient/guardian denies using tobacco. - Ebola Screening: : No symptoms or risks identified at this time. ROS: 06/17 04:22 Constitutional: Negative for fever, chills, and weight loss, Eyes: Negative for injury, tw4 pain, redness, and discharge, Cardiovascular: Negative for chest pain, palpitations, and edema, Respiratory: Negative for shortness of breath, cough, wheezing, and pleuritic chest pain, Back: Negative for injury and pain, MS/Extremity: Negative for injury and deformity, Skin: Negative for injury, rash, and discoloration, Neuro: Negative for headache, weakness, numbness, tingling, and seizure. Abdomen/GI: Positive for abdominal pain, Negative for nausea and vomiting, nausea, vomiting, and diarrhea, nausea, constipation, abdominal cramps, abdominal distension, anorexia, dysphagia, black/tarry stool, rectal pain, rectal bleeding. Exam: 04:22 Constitutional: This is a well developed, well nourished patient who is awake, alert, tw4 and in no acute distress. Head/Face: Normocephalic, atraumatic. Chest/axilla: Normal chest wall appearance and motion. Nontender with no deformity. No lesions are appreciated. Cardiovascular: Regular rate and rhythm with a normal S1 and S2. No gallops, murmurs, or rubs. Normal PMI, no JVD. No pulse deficits. Respiratory: Lungs have equal breath sounds bilaterally, clear to auscultation and percussion. No rales, rhonchi or wheezes noted. No increased work of breathing, no retractions or nasal flaring. Abdomen/GI: Soft, non-tender, with normal bowel sounds. No distension or tympany. No guarding or rebound. No evidence of tenderness throughout. Back: No spinal tenderness. No costovertebral tenderness. Full range of motion. MS/ Extremity: Pulses equal, no cyanosis. Neurovascular intact. Full, normal range of motion. Neuro: Awake and alert, GCS 15, oriented to person, place, time, and situation. Cranial nerves II-XII grossly intact. Motor strength 5/5 in all extremities. Sensory grossly intact. Cerebellar exam normal. Normal gait. Vital Signs: 06/16 23:30 BP 159 / 74; Pulse 91; Resp 18; Temp 97; Pulse Ox 97% on R/A; Weight 90.72 kg (R); ak1 Height 4 ft. 11 in. (149.86 cm); Pain 6/10; 06/17 00:30 BP 143 / 82; Pulse 82; Resp 17; Pulse Ox 98% ; rr5 01:30 BP 152 / 74; Pulse 85; Resp 16; Pulse Ox 100% ; rr5 02:30 BP 146 / 61; Pulse 90; Resp 20; Pulse Ox 96% ; rr5 03:20 BP 143 / 66; Pulse 92; Resp 18 S; Pulse Ox 95% on R/A; Pain 0/10; cc3 04:27 BP 152 / 74; Pulse 97; Resp 20 S; Pulse Ox 95% on R/A; cc3 06/16 23:30 Body Mass Index 40.39 (90.72 kg, 149.86 cm) ak1 MDM: 06/16 23:29 Patient medically screened. tw4 06/17 04:23 Differential diagnosis: gastritis, cholecystitis, pancreatitis. Data reviewed: vital [facility] signs, nurses notes. Counseling: I had a detailed discussion with the patient and/or guardian regarding: the historical points, exam findings, and any diagnostic results supporting the discharge/admit diagnosis, lab results. 06:48 Physician consultation: Villa Mann MD regarding admission, and will see patient in [facility] inpatient room. Admission orders: after a detailed discussion of the patient's condition and case, the admit orders are written by me. 06/16 23:21 Order name: Basic Metabolic Panel; Complete Time: 01:21 [facility] 06/17 01:21 Interpretation: Normal except: GLUC 163; BUN 20; CRE 1.72; GFR 29. tw06/16 23:21 Order name: CBC with Diff 4 06/17 01:22 Interpretation: Normal except: CLARIBEL% 90.8; LYM% 4.3. tw06/16 23:21 Order name: Creatinine for Radiology; Complete Time: 01:21 tw 06/17 01:22 Interpretation: Normal except: CRE 1.68; GFR 30. tw06/16 23:21 Order name: Hepatic Function; Complete Time: 01:21 tw 06/17 01:22 Interpretation: Normal except: GLOB 3.9; A/G 0.9. tw4 06/16 23:21 Order name: Lipase; Complete Time: 01:21 tw4 06/17 01:22 Interpretation: Within normal limits: LIP 133. tw4 06/17 03:43 Order name: Basic Metabolic Panel EDMS 06/17 03:43 Order name: Clear Liquid EDMS 06/17 03:43 Order name: Regular EDMS 06/17 03:43 Order name: Basic Metabolic Panel EDMS 06/17 03:43 Order name: CBC with Automated Diff EDMS 06/17 03:43 Order name: CBC with Automated Diff EDMS 06/17 03:47 Order name: CBC Smear Scan EDMS 06/16 23:21 Order name: IV Saline Lock; Complete Time: 23:58 tw4 06/16 23:21 Order name: Labs collected and sent; Complete Time: 23:58 tw4 Administered Medications: 06/16 23:48 Drug: NS 0.9% 1000 ml Route: IV; Rate: 125 ml/hr; Site: left antecubital; rr5 06/17 03:15 Follow up: Response: No adverse reaction; IV Status: Infusion continued upon admission cc3 06/16 23:50 Drug: Zofran 4 mg Route: IVP; Site: left antecubital; rr5 06/17 00:50 Follow up: Response: No adverse reaction; Nausea is decreased; Vomiting decreased rr5 Disposition: 06/17/19 02:25 Hospitalization ordered by Villa Mann for Observation. Preliminary diagnosis are Dehydration, Acute kidney failure, unspecified. - Bed requested for Telemetry/MedSurg (observation). - Status is Observation. cc3 - Condition is Fair. - Problem is new. - Symptoms are unchanged. UTI on Admission? No Signatures: Dispatcher [employer] [facility] Bhavana Maynard RN ALAN Suzan Romero RN RN ak1 Lavon Dominguez MD MD tw4 Maribell Tavera cc3 Willem Lyons, RN RN rr5 Corrections: (The following items were deleted from the chart) 03:50 02:25 Hospitalization Ordered by Villa Mann MD for Observation. Preliminary diagnosis is Dehydration; Acute kidney failure, unspecified. Bed requested for Telemetry/MedSurg (observation). Status is Observation. Condition is Fair. Problem is new. Symptoms are unchanged. UTI on Admission? No. tw4 03:51 03:50 06/17/2019 02:25 Hospitalization Ordered by Villa Mann MD for Observation. mw Preliminary diagnosis is Dehydration; Acute kidney failure, unspecified. Bed requested for Telemetry/MedSurg (observation). Status is Observation. Condition is Fair. Problem is new. Symptoms are unchanged. UTI on Admission? No. mw 04:51 03:51 06/17/2019 02:25 Hospitalization Ordered by Villa Mann MD for Observation. cc3 Preliminary diagnosis is Dehydration; Acute kidney failure, unspecified. Bed requested for Telemetry/MedSurg (observation). Status is Observation. Condition is Fair. Problem is new. Symptoms are unchanged. UTI on Admission? No. mw
--- NOTE | 2019-06-17 02:27 | ER ---
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 pt stated she had soup ak1 out of her cabinet and believes it "was bad" no one else at home had soup nor is ill. Transition of care: patient was not received from another setting of care. Onset of symptoms was June 16, 2019. Risk Assessment: Do you want to hurt yourself or someone else? Patient reports no desire to harm self or others. Initial Sepsis Screen: Does the patient meet any 2 criteria? No. Patient's initial sepsis screen is negative. Does the patient have a suspected source of infection? No. Patient's initial sepsis screen is negative. Care prior to arrival: None. 23:31 Method Of Arrival: Ambulatory ak1 23:31 Acuity: VAIBHAV 3 ak1 Triage Assessment: 23:33 General: Appears in no apparent distress. Behavior is calm, cooperative. GI: Reports ak1 diarrhea, nausea, vomiting. Historical: - Allergies: 23:33 Band-aid adhesive; ak1 23:33 Avelox; ak1 - Home Meds: 23:33 amlodipine 5 mg tab once daily [Active]; amlodipine 5 mg tab 1 tab once daily [Active]; ak1 aspirin 81 mg Oral chew 1 tab once daily [Active]; bupropion HCl 150 mg Oral TbER 2 times per day [Active]; donepezil 10 mg Oral tab once daily [Active]; escitalopram oxalate 20 mg Oral tab twice a day [Active]; gabapentin 300 mg Oral cap twice a day [Active]; levothyroxine 125 mcg tab once daily [Active]; ropinirole 2 mg Oral tab twice a day [Active]; potassium chloride 10 mEq Oral TbER once daily [Active]; omeprazole 40 mg Oral cpDR once daily [Active]; misoprostol 200 mcg Oral tab once a day [Active]; metoprolol succinate 50 mg Oral Tb24 once daily [Active]; lovastatin 20 mg Oral tab 1 tab once daily [Active]; - PMHx: 23:33 Diverticulitis; Heart Murmur; Hyperlipidemia; Hypertension; Pneumonia; Hypothyroidism; ak1 - PSHx: 23:33 Hysterectomy; Cholecystectomy; Appendectomy; breast reduction; shoulder surgery; Knee ak1 surgery; - Immunization history:: Adult Immunizations unknown. - Social history:: Smoking status: Patient/guardian denies using tobacco. - Ebola Screening: : No symptoms or risks identified at this time. Screenin/17 03:15 Abuse screen: Denies threats or abuse. Denies injuries from another. Nutritional cc3 screening: No deficits noted. Tuberculosis screening: No symptoms or risk factors identified. Fall Risk Ambulatory Aid- None/Bed Rest/Nurse Assist (0 pts). Gait- Normal/Bed Rest/Wheelchair (0 pts) Mental Status- Oriented to own ability (0 pts). Assessment: 06/16 23:30 General: Appears in no apparent distress. uncomfortable, Behavior is calm. rr5 23:30 Pain: Complains of pain in abdomen Pain does not radiate. Pain currently is 6 out of 10 rr5 on a pain scale. Quality of pain is described as aching, Pain began gradually, Is intermittent. Neuro: Level of Consciousness is awake, alert, obeys commands, Oriented to person, place, time, situation, Appropriate for age. Cardiovascular: Capillary refill < 3 seconds Patient's skin is warm and dry. Respiratory: Airway is patent Respiratory effort is even, unlabored, Respiratory pattern is regular, symmetrical. GI: Abdomen is round non-distended, Reports lower abdominal pain, upper abdominal pain, diarrhea, nausea, vomiting. : No signs and/or symptoms were reported regarding the genitourinary system. EENT: No signs and/or symptoms were reported regarding the EENT system. Derm: Skin Skin temperature is warm. Musculoskeletal: Circulation, motion, and sensation intact. Capillary refill < 3 seconds. 06/17 00:30 Reassessment: Patient appears in no apparent distress at this time. Patient is alert, rr5 oriented x 3, equal unlabored respirations, skin warm/dry/pink. awaiting for laboratory result. Patient states feeling better. Patient states symptoms have improved. 01:30 Reassessment: Patient appears in no apparent distress at this time. Patient and/or rr5 family updated on plan of care and expected duration. Pain level reassessed. Patient is alert, oriented x 3, equal unlabored respirations, skin warm/dry/pink. no vomiting noted. 02:30 Reassessment: Patient appears in no apparent distress at this time. Patient is alert, rr5 oriented x 3, equal unlabored respirations, skin warm/dry/pink. eyes closed breathing spontaneously at room air. no complaints made.review by ED provider patient is for admission. 03:15 Reassessment: Patient appears in no apparent distress at this time. Patient and/or cc3 family updated on plan of care and expected duration. Pain level reassessed. Patient is alert, oriented x 3, equal unlabored respirations, skin warm/dry/pink. Received this female patient from ALNA Bangura as a case of dehydration and acute kidney failure for admission awaiting orders and bed availability. With IV cannula gauge 22 at the left ACV with ongoing IVF of NS at 125 mL/hr infusing well. Patient denies pain at this time. Patient states feeling better. Patient states symptoms have improved. 04:20 Reassessment: Patient appears in no apparent distress at this time. Patient and/or cc3 family updated on plan of care and expected duration. Pain level reassessed. Patient is alert, oriented x 3, equal unlabored respirations, skin warm/dry/pink. Room available at 413, report called and handed over to ALAN Jacome for continuity of care and management. Patient denies pain at this time. Patient states feeling better. Patient states symptoms have improved. 04:45 Reassessment: Patient appears in no apparent distress at this time. Patient and/or cc3 family updated on plan of care and expected duration. Pain level reassessed. Patient is alert, oriented x 3, equal unlabored respirations, skin warm/dry/pink. Patient left ER for admission vitally stable by wheelchair escorted by billing and quality techniciandawson Faust. No valuables left in the patient's room. Patient denies pain at this time. Patient states feeling better. Patient states symptoms have improved. Vital Signs: 06/16 23:30 BP 159 / 74; Pulse 91; Resp 18; Temp 97; Pulse Ox 97% on R/A; Weight 90.72 kg (R); ak1 Height 4 ft. 11 in. (149.86 cm); Pain 6/10; 06/17 00:30 BP 143 / 82; Pulse 82; Resp 17; Pulse Ox 98% ; rr5 01:30 BP 152 / 74; Pulse 85; Resp 16; Pulse Ox 100% ; rr5 02:30 BP 146 / 61; Pulse 90; Resp 20; Pulse Ox 96% ; rr5 03:20 BP 143 / 66; Pulse 92; Resp 18 S; Pulse Ox 95% on R/A; Pain 0/10; cc3 04:27 BP 152 / 74; Pulse 97; Resp 20 S; Pulse Ox 95% on R/A; cc3 06/16 23:30 Body Mass Index 40.39 (90.72 kg, 149.86 cm) ak1 ED Course: 06/16 23:19 Patient arrived in ED. cl3 23:19 Villa Mann MD is Private Physician. cl3 23:21 Lavon Dominguez MD is Attending Physician. tw4 23:30 Willem Lyons, ALAN is Primary Nurse. rr5 23:30 Arm band placed on Patient placed in an exam room, on a stretcher, on pulse oximetry, ak1 Patient notified of wait time. 23:32 Triage completed. ak1 23:45 Inserted saline lock: 22 gauge in left antecubital area, using aseptic technique. Blood rr5 collected. 06/17 00:00 Patient has correct armband on for positive identification. Placed in gown. Bed in low rr5 position. Call light in reach. Side rails up X2. Pulse ox on. NIBP on. 00:04 Warm blanket given. rr5 02:25 Villa Mann MD is Hospitalizing Provider. tw4 04:20 No provider procedures requiring assistance completed. Patient admitted, IV remains in cc3 place. Administered Medications: 06/16 23:48 Drug: NS 0.9% 1000 ml Route: IV; Rate: 125 ml/hr; Site: left antecubital; rr5 06/17 03:15 Follow up: Response: No adverse reaction; IV Status: Infusion continued upon admission cc3 06/16 23:50 Drug: Zofran 4 mg Route: IVP; Site: left antecubital; rr5 06/17 00:50 Follow up: Response: No adverse reaction; Nausea is decreased; Vomiting decreased rr5 Output: 01:35 Stool: 1 (Loose Stool) ; Total: 0ml. rr5 Outcome: 02:25 Decision to Hospitalize by Provider. tw4 04:20 Admitted to Tele accompanied by tech, via wheelchair, room 413, with chart, Report cc3 called to ALAN Jacome 04:20 Condition: stable 04:20 Instructed on the need for admit, Demonstrated understanding of instructions. 04:51 Patient left the ED. cc3 Signatures: Suzan Romero RN RN ak1 Lavon Dominguez MD MD tw4 Maribell Tavera cc3 Willem Lyons RN RN rr5 Marleen Hatfield cl3
[2019-06-17] MEDS ORDERED: ACETAMINOPHEN 500 MG TAB PO PRN (03:40)
[2019-06-17 03:46] LABS: Urine White Blood Cell Casts OK
[2019-06-17 03:47] LABS: Blood Morphology Comment NOT SEEN (NOT SEEN); Platelet Estimate ADEQ
[2019-06-17 05:14] VITALS: BMI 42.8
[2019-06-17] MEDS ORDERED: ONDANSETRON 4 MG/2 ML VIAL IV ONE (05:14)
[2019-06-17] MEDS: NA CHLORIDE 0.9% 1,000 ML IV SCH (18:00)
[2019-06-17 19:36] LABS: Urine Appearance CLOUDY; Urine Blood 1+ (NEG); Urine Color DK YELLOW; Urine Glucose NEGATIVE (NEG); Urine Protein 2+ (NEG); Urine Specific Gravity 1.025 (1.005-1.030); Urine Urobilinogen 0.2 mg/dL (0.2-1.0); Urine pH 5.5 (5.0-7.0)
[2019-06-17 19:42] LABS: Urine Bilirubin 1+ (NEG); Urine Microscopic Reflex ORDER UMIC
[2019-06-17 19:58] LABS: Urine Bacteria >50 /HPF (<20); Urine Culture Reflex Order REFLEXED; Urine RBC <5 /HPF (NONE SEEN)
[2019-06-17] MEDS: BUPROPRION HCL S.R. 150MG TAB PO SCH (20:12)
[2019-06-17] MEDS: GABAPENTIN 300 MG CAP PO SCH (20:12)
[2019-06-17] MEDS: ESCITALOPRAM 20 MG TAB PO SCH (20:12)
[2019-06-17] MEDS: DICYCLOMINE HCL 10 MG CAP PO SCH (20:12)
[2019-06-17] MEDS: ROPINIROLE HCL 1 MG TAB PO SCH (20:13)
[2019-06-17] MEDS ORDERED: DONEPEZIL HCL 5 MG TAB PO SCH (21:00)
[2019-06-17] MEDS ORDERED: ATORVASTATIN 10 MG TAB PO SCH (21:00)
[2019-06-18] MEDS: NA CHLORIDE 0.9% 1,000 ML IV SCH ×2 (03:44→13:12)
[2019-06-18 04:43] LABS: Absolute Lymphocytes (CBC) 0.8 K/uL (0.7-4.9); Basophils % 0.5 % (0-1.3); Hematocrit 35.3 % (36.0-45.0); Lymphocytes % 11.4 % (15.3-44.8); MPV 8.3 fL (7.6-11.3); RBC Red Blood Cell Count 4.03 M/uL (3.86-4.86)
[2019-06-18 04:50] LABS: Potassium 3.8 mmol/L (3.5-5.1)
[2019-06-18 06:05] VITALS: O2SAT 92
[2019-06-18] MEDS ORDERED: LEVOTHYROXINE SOD 0.125 MG TAB PO SCH (06:30)
[2019-06-18] MEDS ORDERED: PANTOPRAZOLE 40MG TABLET PO SCH (06:30)
[2019-06-18] MEDS: GABAPENTIN 300 MG CAP PO SCH (08:36)
[2019-06-18] MEDS: DICYCLOMINE HCL 10 MG CAP PO SCH ×2 (08:36→13:05)
[2019-06-18] MEDS: ESCITALOPRAM 20 MG TAB PO SCH (08:37)
[2019-06-18] MEDS: ROPINIROLE HCL 1 MG TAB PO SCH (08:37)
[2019-06-18] MEDS: BUPROPRION HCL S.R. 150MG TAB PO SCH (08:38)
[2019-06-18] MEDS ORDERED: ASPIRIN 81 MG CHEWABLE TABLET PO SCH (09:00)
[2019-06-18] MEDS ORDERED: AMLODIPINE 5 MG TAB PO SCH (09:00)
[2019-06-18] MEDS ORDERED: miSOPROStol 100 MCG TAB PO SCH (09:00)
[2019-06-18] MEDS ORDERED: POTASSIUM CL SA 10 MEQ TAB PO SCH (09:00)
[2019-06-18 12:40] VITALS: BP 170/79; TEMP 97.8
--- NOTE | 2019-06-18 14:32 | PN ---
Date of Progress Note: 06/17/2019 Patient states she has been able to the tolerate water, however, she cannot tolerate much foods. She continues to have diarrhea. The IV fluids, which were started in the ER have not been continued and therefore she still quite dehydrated. They will be reinstituted overnight and electrolytes with cre atinine will be repeated in the morning and if possible she could be discharged if they are stabilize d. Bentyl will be added for the diarrhea. Clinically, she is still quite dehydrated. HR/MODL Voice ID: [id number] Report ID: [id number]
--- NOTE | 2019-06-18 14:39 | HP ---
Date of Admission: 06/17/2019 Entrance Complaint: Weakness, diarrhea, nausea, anorexia. History Of Present Illness: Patient has had recurrent episodes of the above symptoms necessitating h ospitalization and IV fluids. This is one such episode, although her bowel movements have continued to be loose, they become increasingly more as over the past 24 to 48 hours. Past History: As above. Patient has a long history of cardiovascular disease, prerenal azotemia. Social History: Nonsmoker, nondrinker. Family History: Noncontributory. Physical Examination: General/Vital signs: Patient is somewhat obese, elderly female with stable vital signs. Head and neck: Normocephalic. Pupils equal and reactive to light and accommodation. Fundi negative. Trachea midline. Thyroid not palpable. ENT: Negative. Chest: Clear to P and A. Cardiovascular: PMI midclavicular line. Heart sounds normal. Peripheral pulses are present and equa l bilaterally. Abdomen: Minimal tenderness in the periumbilical and lower abdominal area. No guarding, rebound ten derness, or rigidity. Bowel sounds are hyperactive. Extremities: Moderately dehydrated. Good tone and movement bilaterally. Reflexes physiologic. Rectal/Pelvic: Deferred. Impression: Acute enteritis with dehydration, coronary artery disease by history. Plan: Patient will be admitted, placed on IV fluids, and we will follow with her electrolytes and re nal function. If tolerated and the diarrhea is controlled, she possibly can be discharged within 24 hours. HR/MODL Voice ID: [id number]
--- NOTE | 2019-06-18 20:21 | PN ---
Date of Progress Note: 06/18/2019 Patient states she feels much better. This coincides with her creatinine down significantly. Her in take is improved. Her diarrhea is improved, although still loose stools. This is an ongoing problem , probably contributing to her positive E coli in her culture. She does not recall being on Macrobid , this will be started and possibility that she require long-term antibiotics. She was discharged to follow up next week with me in good condition. Final Diagnoses: Urinary tract infection, acute enteritis, dehydration which have been chronic in [facility], operated by [facility] over the past few months. She was supposed to see Dr. Solorzano with regard to the diarrhea and poss ible colitis today, however, due to store in their office was closed, she was instructed to follow up with him next week. HR/MODL Voice ID: [id number] Report ID: [id number]
== END 2019-06-18 15:38 | disposition home or self-care (01) | DRG 690 ==
LOC: ER 23:14 → 4TH 06-17 04:39 → OBSVTOIN 06-17 17:43
PROVIDERS: ADMIT Family Medicine; ATTEND Family Medicine
DX: N39.0 Urinary tract infection, site not specified (principal); K52.9 Noninfective gastroenteritis and colitis, unspecified; E86.0 Dehydration; B96.20 Unspecified Escherichia coli [E. coli] as the cause of diseases classified elsewhere; I25.10 Atherosclerotic heart disease of native coronary artery without angina pectoris
CPT/HCPCS: 36415; 80048; 80076; 81003; 81015; 83690; 85025; 87077; 87086; 87088; 87186; 87493; 96361; 96374; 99285; G0378; J2405; J7030

== ENCOUNTER 2019-08-26 22:39 | Emergency (ER) | payer OTHER ==
--- OUTSIDE RECORDS SUMMARY | 2019-08-26 22:42 | XMS REPORT ---
:1940 [facility] Address [address] [place] [address] Dr. Ryan [address] [place] [id number] Care Team Providers Name Role Phone Unavailable Unavailable Unavailable Problems This patient has no known problems. Allergies, Adverse Reactions, Alerts This patient has no known allergies or adverse reactions. Medications This patient has no known medications.
[2019-08-26] MEDS ORDERED: HYDROCODONE/APAP 7.5/325 MG TAB ONE (23:11)
--- NOTE | 2019-08-27 00:42 | ER ---
Nurse's Notes [facility] Name: Radha Bentley Age: 78 yrs Sex: Female : 1940 Arrival Date: 08/26/2019 Time: 22:41 Bed 15 Private MD: Diagnosis: Sprain left ankle. Possible fractures left foot. Presentation: 08/26 22:47 Presenting complaint: Patient states: States fell this evening, slipped on wet floor at 1 home, pain to left ankle, unable to bear weight; Denies any other pain. Transition of care: patient was not received from another setting of care. Onset of symptoms was August 26, 2019 at 19:30. Risk Assessment: Do you want to hurt yourself or someone else? Patient reports no desire to harm self or others. Initial Sepsis Screen: Does the patient meet any 2 criteria? No. Patient's initial sepsis screen is negative. Does the patient have a suspected source of infection? No. Patient's initial sepsis screen is negative. Care prior to arrival: None. 22:47 Method Of Arrival: Wheelchair lp1 22:47 Acuity: VAIBHAV 4 lp1 Historical: - Allergies: 22:50 Avelox; lp1 22:50 Band-aid adhesive; lp1 - Home Meds: 22:50 amlodipine 5 mg tab once daily [Active]; amlodipine 5 mg tab 1 tab once daily [Active]; lp1 aspirin 81 mg Oral chew 1 tab once daily [Active]; bupropion HCl 150 mg Oral TbER 2 times per day [Active]; donepezil 10 mg Oral tab once daily [Active]; escitalopram oxalate 20 mg Oral tab twice a day [Active]; gabapentin 300 mg Oral cap twice a day [Active]; levothyroxine 125 mcg tab once daily [Active]; lovastatin 20 mg Oral tab 1 tab once daily [Active]; metoprolol succinate 50 mg Oral Tb24 once daily [Active]; misoprostol 200 mcg Oral tab once a day [Active]; omeprazole 40 mg Oral cpDR once daily [Active]; potassium chloride 10 mEq Oral TbER once daily [Active]; ropinirole 2 mg Oral tab twice a day [Active]; - PMHx: 22:50 Diverticulitis; Heart Murmur; Hyperlipidemia; Hypertension; Hypothyroidism; Pneumonia; lp1 - PSHx: 22:50 Cholecystectomy; Knee surgery; shoulder; breast reduction; abdominal surgery; lp1 - Immunization history:: Adult Immunizations up to date. - Social history:: Smoking status: Patient/guardian denies using tobacco. - Ebola Screening: : No symptoms or risks identified at this time. Screenin:52 Abuse screen: Denies threats or abuse. Denies injuries from another. Nutritional lp1 screening: No deficits noted. Tuberculosis screening: No symptoms or risk factors identified. 08/27 01:00 Fall Risk Fall in past 12 months (25 points). wh Assessment: 08/26 22:53 General: Appears in no apparent distress. uncomfortable, Behavior is calm, cooperative, jb4 appropriate for age. Pain: Complains of pain in left foot Pain does not radiate. Pain currently is 7 out of 10 on a pain scale. Quality of pain is described as stabbing. Neuro: Level of Consciousness is awake, alert, obeys commands, Oriented to person, place, time, situation. Cardiovascular: Patient's skin is warm and dry. Respiratory: Airway is patent Respiratory effort is even, unlabored, Respiratory pattern is regular, symmetrical. GI: No signs and/or symptoms were reported involving the gastrointestinal system. : No signs and/or symptoms were reported regarding the genitourinary system. EENT: No signs and/or symptoms were reported regarding the EENT system. Derm: Skin is intact, Skin is pink, warm \T\ dry. Musculoskeletal: Circulation, motion, and sensation intact. Range of motion: intact in all extremities. 23:53 Reassessment: Patient appears in no apparent distress at this time. Patient and/or jb4 family updated on plan of care and expected duration. Pain level reassessed. Patient is alert, oriented x 3, equal unlabored respirations, skin warm/dry/pink. Patient states feeling better. 08/27 00:57 Reassessment: Patient appears in no apparent distress at this time. Patient and/or jb4 family updated on plan of care and expected duration. Pain level reassessed. Patient is alert, oriented x 3, equal unlabored respirations, skin warm/dry/pink. Orthoglass splint applied, checked by provider. Cap refill <3. D/c pending pt's ride home. 02:09 Reassessment: Patient appears in no apparent distress at this time. Patient and/or family updated on plan of care and expected duration. Pain level reassessed. Patient is alert, oriented x 3, equal unlabored respirations, skin warm/dry/pink. Patient states feeling better. Vital Signs: 08/26 22:50 BP 155 / 77; Pulse 81; Resp 18; Temp 97.7(TE); Pulse Ox 97% on R/A; Weight 90.72 kg lp1 (R); Height 4 ft. 11 in. (149.86 cm); Pain 7/10; 23:53 BP 173 / 84; Pulse 84; Resp 16; Pulse Ox 96% on R/A; jb4 08/27 01:03 BP 167 / 90; Pulse 72; Resp 16; Pulse Ox 97% on R/A; jb4 08/26 22:50 Body Mass Index 40.39 (90.72 kg, 149.86 cm) lp1 ED Course: 08/26 22:41 Patient arrived in ED. cl3 22:48 Triage completed. lp1 22:48 Arm band placed on left wrist. lp1 22:53 Mars Hyatt MD is Attending Physician. pkl 22:53 Patient has correct armband on for positive identification. Bed in low position. Call jb4 light in reach. Side rails up X 1. Pulse ox on. NIBP on. 23:21 Ankle Left 3 View XRAY In Process Unspecified. EDMS 23:53 Johnnie Henrandez, RN is Primary Nurse. jb4 08/27 00:39 Gabo Richards MD is Referral Physician. pkl 02:10 No provider procedures requiring assistance completed. Patient did not have IV access during this emergency room visit. Administered Medications: 08/26 23:15 Drug: [place] (7.5 mg-325 mg) 1 tabs Route: PO; wh 23:45 Follow up: Response: No adverse reaction; Pain is decreased; RASS: Alert and Calm (0) jb4 Outcome: 08/27 00:41 Discharge ordered by . pkl 02:10 Discharged to home via wheelchair. wh 02:10 Condition: stable 02:10 Discharge instructions given to patient, Instructed on discharge instructions, follow up and referral plans. no drinking with medication, no driving heavy equipment, medication usage, POC Ankle Sprain Demonstrated understanding of instructions, follow-up care, medications, splint care, Prescriptions given X 1. 02:11 Patient left the ED. wh Signatures: Dispatcher [employer] EDMars Valera MD MD pkl Pena, Laura RN RN lp1 Johnnie Hernandez RN RN jb4 Jackson Degroot Charde cl3
--- NOTE | 2019-08-27 00:42 | EDPHYS ---
Physician Documentation [facility] Name: Radha Bentley Age: 78 yrs Sex: Female : 1940 Arrival Date: 08/26/2019 Time: 22:41 Bed 15 Private MD: ED Physician Mars Hyatt HPI: 08/26 23:05 This 78 yrs old Female presents to ER via Wheelchair with complaints of Ankle pkl Injury, Fall Injury. 23:05 The patient presents with an injury, pain, that is acute. The complaints affect the pkl left ankle. Onset: The symptoms/episode began/occurred just prior to arrival, 3 hour(s) ago. Context: The problem was sustained at home, resulted from the patient falling, slipped on wet floor. Associated signs and symptoms: Pertinent positives: unable to bear weight. Historical: - Allergies: 22:50 Avelox; lp1 22:50 Band-aid adhesive; lp1 - Home Meds: 22:50 amlodipine 5 mg tab once daily [Active]; amlodipine 5 mg tab 1 tab once daily [Active]; lp1 aspirin 81 mg Oral chew 1 tab once daily [Active]; bupropion HCl 150 mg Oral TbER 2 times per day [Active]; donepezil 10 mg Oral tab once daily [Active]; escitalopram oxalate 20 mg Oral tab twice a day [Active]; gabapentin 300 mg Oral cap twice a day [Active]; levothyroxine 125 mcg tab once daily [Active]; lovastatin 20 mg Oral tab 1 tab once daily [Active]; metoprolol succinate 50 mg Oral Tb24 once daily [Active]; misoprostol 200 mcg Oral tab once a day [Active]; omeprazole 40 mg Oral cpDR once daily [Active]; potassium chloride 10 mEq Oral TbER once daily [Active]; ropinirole 2 mg Oral tab twice a day [Active]; - PMHx: 22:50 Diverticulitis; Heart Murmur; Hyperlipidemia; Hypertension; Hypothyroidism; Pneumonia; lp1 - PSHx: 22:50 Cholecystectomy; Knee surgery; shoulder; breast reduction; abdominal surgery; lp1 - Immunization history:: Adult Immunizations up to date. - Social history:: Smoking status: Patient/guardian denies using tobacco. - Ebola Screening: : No symptoms or risks identified at this time. ROS: 23:05 Eyes: Negative for injury, pain, redness, and discharge, ENT: Negative for injury, pkl pain, and discharge, Neck: Negative for injury, pain, and swelling, Cardiovascular: Negative for chest pain, palpitations, and edema, Respiratory: Negative for shortness of breath, cough, wheezing, and pleuritic chest pain, Abdomen/GI: Negative for abdominal pain, nausea, vomiting, diarrhea, and constipation, Back: Negative for injury and pain, : Negative for injury, bleeding, discharge, and swelling, Skin: Negative for injury, rash, and discoloration, Neuro: Negative for headache, weakness, numbness, tingling, and seizure. 23:05 MS/extremity: Positive for injury or acute deformity, pain, tenderness, of the left ankle. Exam: 23:05 Head/Face: Normocephalic, atraumatic. Eyes: Pupils equal round and reactive to light, pkl extra-ocular motions intact. Lids and lashes normal. Conjunctiva and sclera are non-icteric and not injected. Cornea within normal limits. Periorbital areas with no swelling, redness, or edema. ENT: Nares patent. No nasal discharge, no septal abnormalities noted. Tympanic membranes are normal and external auditory canals are clear. Oropharynx with no redness, swelling, or masses, exudates, or evidence of obstruction, uvula midline. Mucous membranes moist. Neck: Trachea midline, no thyromegaly or masses palpated, and no cervical lymphadenopathy. Supple, full range of motion without nuchal rigidity, or vertebral point tenderness. No Meningismus. Chest/axilla: Normal chest wall appearance and motion. Nontender with no deformity. No lesions are appreciated. Cardiovascular: Regular rate and rhythm with a normal S1 and S2. No gallops, murmurs, or rubs. Normal PMI, no JVD. No pulse deficits. Respiratory: Lungs have equal breath sounds bilaterally, clear to auscultation and percussion. No rales, rhonchi or wheezes noted. No increased work of breathing, no retractions or nasal flaring. Abdomen/GI: Soft, non-tender, with normal bowel sounds. No distension or tympany. No guarding or rebound. No evidence of tenderness throughout. Back: No spinal tenderness. No costovertebral tenderness. Full range of motion. Skin: Warm, dry with normal turgor. Normal color with no rashes, no lesions, and no evidence of cellulitis. Neuro: Awake and alert, GCS 15, oriented to person, place, time, and situation. Cranial nerves II-XII grossly intact. Motor strength 5/5 in all extremities. Sensory grossly intact. Cerebellar exam normal. Normal gait. 23:05 Musculoskeletal/extremity: Extremities: grossly normal except: noted in the left ankle: pain, tenderness. Vital Signs: 22:50 BP 155 / 77; Pulse 81; Resp 18; Temp 97.7(TE); Pulse Ox 97% on R/A; Weight 90.72 kg lp1 (R); Height 4 ft. 11 in. (149.86 cm); Pain 7/10; 23:53 BP 173 / 84; Pulse 84; Resp 16; Pulse Ox 96% on R/A; jb4 08/27 01:03 BP 167 / 90; Pulse 72; Resp 16; Pulse Ox 97% on R/A; jb4 08/26 22:50 Body Mass Index 40.39 (90.72 kg, 149.86 cm) lp1 Procedures: 00:36 Splinting: Splint applied to left ankle and foot using short leg posterior splint. pkl applied by tech. Examined by me, post splint application: neurovascular intact, 2+ distal pulses palpable, brisk capillary refill noted, Patient tolerated well. MDM: 08/26 22:54 Patient medically screened. pkl 08/27 00:36 Data reviewed: vital signs, nurses notes, radiologic studies, plain films. ED course: pkl Discussed X' rays results with patient. Advised to use walker and folloe up with Dr. Richards in 2 to 3 days. Patient understood instructions.. 08/26 22:59 Order name: Ankle Left 3 View XRAY pkl 08/27 00:35 Order name: Splint - Ankle: Posterior; Complete Time: 00:54 pkl Administered Medications: 08/26 23:15 Drug: [place] (7.5 mg-325 mg) 1 tabs Route: PO; 23:45 Follow up: Response: No adverse reaction; Pain is decreased; RASS: Alert and Calm (0) jb4 Disposition: 08/27/19 00:41 Discharged to Home. Impression: Sprain left ankle. Possible fractures left foot.. - Condition is Stable. - Prescriptions for Ultram 50 mg Oral Tablet - take 1 tablet by ORAL route every 8 hours As needed; 12 tablet. - Medication Reconciliation Form, Thank You Letter, Antibiotic Education, Prescription Opioid Use form. - Follow up: Gabo Richards MD; When: 2 - 3 days; Reason: Re-evaluation by your physician. - Problem is new. - Symptoms have improved. Signatures: Dispatcher [employer] EDMS Mars Hyatt MD MD pkl Nohemi Weston RN RN lp1 Jackson Degroot James RN jb4 Corrections: (The following items were deleted from the chart) 08/27 02:11 00:41 08/27/2019 00:41 Discharged to Home. Impression: Sprain left ankle. Possible wh fractures left foot.. Condition is Stable. Forms are Medication Reconciliation Form, Thank You Letter, Antibiotic Education, Prescription Opioid Use. Follow up: Gabo Richards; When: 2 - 3 days; Reason: Re-evaluation by your physician. Problem is new. Symptoms have improved. pkl
[2019-08-27 02:55] VITALS: TEMP 97.7
[2019-08-27 02:58] VITALS: BP 167/90; O2SAT 97
--- NOTE | 2019-08-27 10:18 | RAD REPORT ---
EXAM DESCRIPTION: RAD - Ankle Left 3 View - 08/26/2019 11:20 pm CLINICAL HISTORY: Pain after fall. COMPARISON: None.. TECHNIQUE: AP, lateral and oblique views of the left ankle. FINDINGS: There is marked soft tissue edema about the left ankle. There is no fracture. No dislocati on. Intact ankle mortise and talar dome. There is narrowing of the intertarsal joint spaces. There is mild hypertrophic change along the dorsu m of the midfoot. There is bony crowding of the midfoot which may be sequela of remote fractures. The re is deformity of the distal fourth and fifth metatarsals due to remote fractures. Generalized decre ased bone density. Surgical fixation hardware noted within the left third and fourth toes. IMPRESSION: 1. Left ankle soft tissue edema. No acute bony finding. 2. Mid foot osteoarthritis, possibly sequela of remote fractures. 3. Remote left fourth and fifth metatarsal fractures. Electronically signed by: Vivian Claros DO 08/27/2019 12:16 AM ENT CONSULTANT Due to temporary technical issues with the PACS/Fluency reporting system, reports are being signed by the in house radiologist as a courtesy to ensure prompt reporting. The interpreting radiologist is f ully responsible for the content of the report.
== END 2019-08-27 02:11 | disposition home or self-care (01) ==
LOC: ER 22:39
DX: S93.402A Sprain of unspecified ligament of left ankle, initial encounter (principal); W01.0XXA Fall on same level from slipping, tripping and stumbling without subsequent striking against object, initial encounter; Y93.89 Activity, other specified; Y92.019 Unspecified place in single-family (private) house as the place of occurrence of the external cause; Z88.8 Allergy status to other drugs, medicaments and biological substances; I10 Essential (primary) hypertension; E78.5 Hyperlipidemia, unspecified; E03.9 Hypothyroidism, unspecified
CPT/HCPCS: 99284

== ENCOUNTER 2020-06-05 09:22 | Emergency (ER) | payer OTHER ==
--- OUTSIDE RECORDS SUMMARY | 2020-06-05 09:24 | XMS REPORT | Continuity of Care Document ---
:1940 Author Organization [facility] t Address [address] [place] [address] Care Team Providers Name Role Phone JoseHollis Attending Clinician Dimitri Rust NP Attending Clinician Timothy WOLFE Attending Clinician Problems Condition Condition Condition Status Onset Resolution Last Treating Co mments Source Name Details Category Date Date Treatment Clinician Date Hypertensi Problem Active 2020-05-28 M emoria ve 00:48:31 l disorder, Raul systemic Hypertensi arterial ve (disorder) disorder, systemic arterial (disorder) Active Problem 05/28/2020 [facility] Hyperlipid Problem Active 2020-05-28 M emoria emia 00:48:31 l (disorder) Ajay n Hyperlipid emia (disorder) Active Problem 05/28/2020 [facility] Hypothyroi Problem Active 2020-05-28 M emoria dism 00:48:31 l (disorder) Ajay n Hypothyroi dism (disorder) Active Problem 05/28/2020 [facility] Memory Problem Active 2020-05-28 Memor ia impairment 00:48:31 l (finding) Memory Jessie nn impairment (finding) Active Problem 05/28/2020 [facility] Morbid Problem Active 2020-05-28 Memor ia obesity 00:48:31 l (disorder) Morbid Herm bernie obesity (disorder) Active Problem 05/28/2020 [facility] Recurrent Problem Active 2020-05-28 Me moria falls 00:48:31 l (finding) [place] Recurrent falls (finding) Active Problem 05/28/2020 [facility] Transient Problem Active 2020-05-28 Me moria ischemic 00:48:31 l attack [place] (disorder) Transient ischemic attack (disorder) Active Problem 05/28/2020 [facility] Tremor Problem Active 2020-05-28 Memor ia (finding) 00:48:31 l Tremor [place] (finding) Active Problem 05/28/2020 [facility] Allergies, Adverse Reactions, Alerts Allergy Allergy Status Severity Reaction(s) Onset Inactive Treating Comm ents Source Name Type Date Date Clinician Avelox Avelox Active MS^Mild Memoria lavelle Carter Social History Smoking Status Start Date Stop Date Source Social History 2020-05-25 18:44:53 2020-05-25 18:44:53 Nancy Carter Medications Ordered Filled Start Stop Current Ordering Indication Dosage Frequency Signature Comments Components Source Medication Medication Date Date Medication? Clinician (SIG) Name Name primidone Yes 50 mg = 1 Mem oria 50 mg oral 8-25 tab, PO, l tablet 19:03: BID, # 180 Jessie nn 00 tab, 3 Refill(s), Pharmacy: [id number], 149.86, cm, 05/25/20 13:41:00 CDT, Height, 95.455, kg, 05/25/20 13:41:00 CDT, Weight primidone No 50 mg = 1 Mem oria 50 mg oral 6-25 tab, PO, l tablet 13:48: Bedtime, # Jessie nn 00 90 tab, 3 Refill(s), Pharmacy: [id number], 149.86, cm, 03/24/20 9:12:00 CDT, Height, 90.909, kg, 03/24/20 9:12:00 CDT, Weight donepezil Yes 10 mg = 1 Mem oria 10 mg oral 6-24 tab, PO, l tablet 14:32: Daily, # Raul 00 30 tab, 3 Refill(s), Pharmacy: [id number], 149.86, cm, 03/24/20 9:12:00 CDT, Height, 90.909, kg, 03/24/20 9:12:00 CDT, Weight primidone No 50 mg = 1 Mem oria 50 mg oral 6-24 tab, PO, l tablet 14:32: Bedtime, X Jessie nn 30 day, # 30 tab, 3 Refill(s), Pharmacy: [facility] #[id number], 149.86, cm, 03/24/20 9:12:00 CDT, Height, 90.909, kg, 03/24/20 9:12:00 CDT, Weight topiramate 2018-10 No 25 mg = 1 Me moria 25 MG Oral 0-24 tab, PO, l Tablet 20:22: Bedtime, # Jessie nn [Topamax] 00 30 tab, 3 Refill(s) Walker Yes 1 ea, Memoria 7-26 MISC, l 21:45: Daily, # 1 Raul 00 ea, 0 Refill(s) Adult Yes 81 mg = 1 Memoria Aspirin 81 6-21 tab, CHEW, l mg oral 20:18: Daily, # Ajay n tablet, 00 30 tab, 3 chewable Refill(s), Pharmacy: [facility] #[id number] levothyroxi 2018- Yes 125 Memori a ne 125 mcg 5-24 microgram l (0.125 mg) 20:29: = 1 tab, Her ivory oral tablet 00 PO, Daily, # 30 tab, 0 Refill(s) gabapentin 2018- Yes 300 mg = 1 M emoria 300 MG Oral 5-24 cap, PO, l Capsule 20:29: BID, # 90 Jessie nn 00 cap, 1 Refill(s) metoprolol Yes 50 mg = 1 Me moria 50 mg oral 5-24 tab, PO, l tablet, 20:06: Daily, # Ajay n extended 00 30 tab, 0 release Refill(s) Escitalopra Yes 20 mg = 1 M emoria m 20 MG 5-24 tab, PO, l Oral Tablet 20:06: Daily, # Catalino rmann [Lexapro] 00 30 tab, 0 Refill(s) omeprazole 2018- Yes 40 mg = 1 Me moria 40 mg oral 5-24 cap, PO, l delayed 20:06: Daily, # Ajay n release 00 30 cap, 0 capsule Refill(s) amLODIPine Yes 5 mg = 1 Mem oria 5 mg oral 5-24 tab, PO, l tablet 20:06: Daily, # [place] 00 90 tab, 0 Refill(s) Atropine 2019-0 Yes 2 tab, PO, Mem oria Sulfate 5-24 PRN, PRN l 0.025 MG / 20:06: for loose He rmann Diphenoxyla 00 stool, 0 te Refill(s) Hydrochlori de 2.5 MG Oral Tablet [Lomotil] lovastatin 2018- Yes 20 mg = 1 Me moria 20 mg oral 5-24 tab, PO, l tablet 20:06: Bedtime, # Jessie nn 00 30 tab, 0 Refill(s) rOPINIRole 2019- Yes 2 mg = 1 Mem oria 2 mg oral 5-24 tab, PO, l tablet 20:06: BID, 0 [place] 00 Refill(s) lisinopril 2019- Yes 40 mg = 1 Me moria 40 mg oral 5-24 tab, PO, l tablet 20:06: Daily, # [place] 00 30 tab, 0 Refill(s) donepezil 2018- Yes 10 mg = 1 Mem oria 10 mg oral 5-24 tab, PO, l tablet 20:06: Daily, # [place] 00 30 tab, 0 Refill(s) ProAir HFA Yes 1 - 2 Memori a 5-24 puffs, PO, l 20:06: Q4H, PRN [place] 00 Wheezing / cough / shortness of breath, # 1 ea, 0 Refill(s) Vital Signs Vital Name Observation Time Observation Value Comments Source Systolic (mm Hg) 2020-05-25 18:41:00 Jose Francisco Carter Diastolic (mm Hg) 2020-05-25 18:41:00 Chao Carter Heart Rate 2020-05-25 18:41:00 [facility] Respitory Rate 2020-05-25 18:41:00 Carlotta Samano Temperature Oral (F) 2020-05-25 18:41:00 98.6 F [facility] Height 2020-05-25 18:41:00 149.86 cm [facility] Weight 2020-05-25 18:41:00 [facility] BMI Calculated 2020-05-25 18:41:00 Carlotta Samano Systolic (mm Hg) 2020-03-24 14:12:00 Jose Francisco rial [place] Diastolic (mm Hg) 2020-03-24 14:12:00 Mem orial [place] Heart Rate 2020-03-24 14:12:00 [facility] Height 2020-03-24 14:12:00 149.86 cm [facility] [place] Weight 2020-03-24 14:12:00 [facility] Ra[facility] BMI Calculated 2020-03-24 14:12:00 Memori al [place] Systolic (mm Hg) 2019-07-24 19:29:00 Jose Francisco rial [place] Diastolic (mm Hg) 2019-07-24 19:29:00 Mem orial [place] Heart Rate 2019-07-24 19:29:00 [facility] [place] Respitory Rate 2019-07-24 19:29:00 Memori al [place] Height 2019-07-24 19:29:00 149.86 cm [facility] Raul Weight 2019-07-24 19:29:00 [facility] [place] BMI Calculated 2019-07-24 19:29:00 Memori al [place] Systolic (mm Hg) 2019-05-21 19:25:00 Jose Francisco rial [place] Diastolic (mm Hg) 2019-05-21 19:25:00 Mem orial Raul Heart Rate 2019-05-21 19:25:00 [facility] [place] Respitory Rate 2019-05-21 19:25:00 Memori al [place] Height 2019-05-21 19:25:00 149.86 cm [facility] [place] Weight 2019-05-21 19:25:00 [facility] [place] BMI Calculated 2019-05-21 19:25:00 Memori al [place] Height 2019-03-21 19:45:00 147.32 cm [facility] [place] Weight 2019-03-21 19:45:00 [facility] Raul BMI Calculated 2019-03-21 19:45:00 Memori al [place] Respitory Rate 2019-03-21 19:45:00 Memori al [place] Heart Rate 2019-03-21 19:45:00 [facility] [place] Systolic (mm Hg) 2019-03-21 19:45:00 Jose Francisco rial Raul Diastolic (mm Hg) 2019-03-21 19:45:00 Mem orial [place] Height 2019-02-21 20:01:00 149.86 cm [facility] Ra[facility] Weight 2019-02-21 20:01:00 [facility] [place] BMI Calculated 2019-02-21 20:01:00 Carlotta shah Raul Respitory Rate 2019-02-21 20:01:00 Memdano shah [place] Heart Rate 2019-02-21 20:01:00 Nancy Raul Systolic (mm Hg) 2019-02-21 20:01:00 Jose Francisco guido Raul Diastolic (mm Hg) 2019-02-21 20:01:00 Mem orial Raul Procedures This patient has no known procedures. Encounters Start End Encounter Admission Attending Care Care Encounter Source Date/Time Date/Time Type Type Clinicians Facility Department ID 2020-05-25 2020-05-25 Outpatient YURIDIA Garcia [id number] 13:45:00 23:59:59 Jeffrey 07 [facility] 2020-03-30 2020-03-30 Outpatient YURIDIA GarciaSCHER [id number] 15:15:00 15:15:00 Jeffrey 05 [facility] 2020-03-24 2020-03-24 Outpatient YURIDIA Garcia [id number] 09:00:00 23:59:59 Jeffrey [facility] 2020-02-19 2020-02-19 [id number] 14:18:56 16:04:00 Maria Luisa Gutierrez [id number] [place] [id number] [place] [address] [id number] 2019-12-09 2019-12-[id number] 21:28:34 00:05:00 Jorge Gutierrez [id number] [place] [id number] [place] [address] [id number] 2019-09-16 2019-09-16 Outpatient YURIDIA GarciaSCHER [id number] 15:00:00 15:00:00 Jeffrey 04 [facility] 2019-07-24 2019-07-24 Outpatient YURIDIA GarciaSCHER [id number] 14:15:00 23:59:59 Jeffrey 03 [facility] 2019-05-21 2019-05-21 Outpatient YURIDIA GarciaSCHER [id number] 14:30:00 23:59:59 Jeffrey 02 [facility] 2019-03-21 2019-03-21 Outpatient Jose [facility] [id number] 14:30:00 23:59:59 Jeffrey Hollis 2019-02-21 2019-02-21 Outpatient Jose [facility] [id number] 15:00:00 23:59:59 Jeffrey Hollis Results This patient has no known results.
--- OUTSIDE RECORDS SUMMARY | 2020-06-05 09:24 | XMS REPORT | Summary of Care ---
:1940 Author Organization [facility] [place] Address [address] [place] [address]- Encounter HQ Brendan(FIN) [id number] Date(s): 05/25/20 - 05/25/20 [facility] [place] [address] [place], [place] [address]- [phone] Discharge Disposition: Home or Self Care Attending Physician: Jeffrey Garcia MD Referring Physician: Villa Mann MD Vital Signs Most recent to oldest [Reference Range]: 1 Height 149.86 cm (05/25/20 1:41 PM) Temperature Oral [96.4-99.1 DegF] 98.6 DegF (05/25/20 1:41 PM) Blood Pressure [90-140/60-90 mmHg] 183/90 mmHg *HI* (05/25/20 1:41 PM) Respiratory Rate [14-20 BRMIN] 16 BRMIN (05/25/20 1:41 PM) Peripheral Pulse Rate [60-100 bpm] 71 bpm (05/25/20 1:41 PM) Weight 95.455 kg (05/25/20 1:41 PM) Body Mass Index 42.5 m2 (05/25/20 1:41 PM) Problem List Condition Effective Dates Status Health Status Informant HTN - Hypertension(Confirmed) Active Hyperlipidemia(Confirmed) Active Hypothyroidism(Confirmed) Active Memory loss(Confirmed) Active Morbid obesity(Confirmed) Active Multiple falls(Confirmed) Active Brain TIA(Confirmed) Active Tremor(Confirmed) Active Allergies, Adverse Reactions, Alerts Substance Reaction Severity Status Avelox MD^Mild Active Medications primidone 50 mg oral tablet 50 mg = 1 tab, PO, Bedtime, # 90 tab, 3 Refill(s), Pharmacy: [id number], 149.86, cm, 03/24/20 9:12:00 CDT, Height, 90.909, kg, 03/24/20 9:12:00 CDT, Weight Start Date: 03/25/20 Stop Date: 05/25/20 Status: Discontinuedprimidone 50 mg oral tablet 50 mg = 1 tab, PO, BID, # 180 tab, 3 Refill(s), Pharmacy: [facility]/pharmacy #[id number], 149.86, cm, 05/25/20 13:41:00 CDT, Height, 95.455, kg, 05/25/20 13:41:00 CDT, Weight Start Date: 05/25/20 Stop Date: 05/20/21 Status: Ordered Results No data available for this section Immunizations No data available for this section Procedures No data available for this section Social History Social History Type Response Smoking Status Former smoker; Type: Cigaret diana; Exposure to Tobacco Smoke None; Cigarette Smoking Last 365 Days No; Reg Smoking Cessation Counseling No entered on: 05/25/20 Assessment and Plan No data available for this section
--- OUTSIDE RECORDS SUMMARY | 2020-06-05 09:24 | XMS REPORT | Continuity of Care Document ---
:1940 Author Organization [employer] Care Team Providers Name Role Phone [employer] Unavailable Un available Problems Problem Status Onset Classification Date Comments Sourc e Date Reported Hypertensive Active Problem 05/28/2020 [facility] r disorder, systemic N euro arterial (disorder) Hyperlipidemia Active Problem 05/28/2020 Misc her (disorder) Neuro Hypothyroidism Active Problem 05/28/2020 Misc her (disorder) Neuro Memory impairment Active Problem 05/28/2020 M ischer (finding) Neuro Morbid obesity Active Problem 05/28/2020 Misc her (disorder) Neuro Recurrent falls Active Problem 05/28/2020 Mis beverly (finding) Neuro Transient ischemic Active Problem 05/28/2020 [facility] attack (disorder) Ne uro Tremor (finding) Active Problem 05/28/2020 Mi ro Neuro Medications Medication Details Route Status Patient Ordering Order Source Instructions Provider Date primidone 50 mg 50 mg = 1 Active Mische r oral tablet tab, PO, 020 Neuro BID, # 180 tab, 3 Refill(s), Pharmacy: [facility]/pharmacy #[id number], 149.86, cm, 05/25/20 13:41:00 CDT, Height, 95.455, kg, 05/25/20 13:41:00 CDT, Weight primidone 50 mg 50 mg = 1 No Longer Misc her oral tablet tab, PO, Active 020 Neuro Bedtime, # 90 tab, 3 Refill(s), Pharmacy: [facility]/pharmacy #[id number], 149.86, cm, 03/24/20 9:12:00 CDT, Height, 90.909, kg, 03/24/20 9:12:00 CDT, Weight donepezil 10 mg 10 mg = 1 Active Mische r oral tablet tab, PO, 020 Neuro Daily, # 30 tab, 3 Refill(s), Pharmacy: [facility]/pharmacy #[id number], 149.86, cm, 03/24/20 9:12:00 CDT, Height, 90.909, kg, 03/24/20 9:12:00 CDT, Weight primidone 50 mg 50 mg = 1 No Longer Misc her oral tablet tab, PO, Active 020 Neuro Bedtime, X 30 day, # 30 tab, 3 Refill(s), Pharmacy: [facility]/pharmacy #[id number], 149.86, cm, 03/24/20 9:12:00 CDT, Height, 90.909, kg, 03/24/20 9:12:00 CDT, Weight topiramate 25 MG 25 mg = 1 Inactive Misc her Oral Tablet tab, PO, 019 Neuro [Topamax] Bedtime, # 30 tab, 3 Refill(s) Walker 1 ea, MISC, Active [facility] Daily, # 1 019 Neuro ea, 0 Refill(s) Adult Aspirin 81 81 mg = 1 Active Misch er mg oral tablet, tab, CHEW, 019 Neuro chewable Daily, # 30 tab, 3 Refill(s), Pharmacy: [facility]/pharmacy #[id number] levothyroxine 125 Active Mischer 125 mcg (0.125 microgram = 019 Neuro mg) oral tablet 1 tab, PO, Daily, # 30 tab, 0 Refill(s) gabapentin 300 300 mg = 1 Active Mische r MG Oral Capsule cap, PO, 019 Neuro BID, # 90 cap, 1 Refill(s) metoprolol 50 mg 50 mg = 1 Active Misch er oral tablet, tab, PO, 019 Neuro extended release Daily, # 30 tab, 0 Refill(s) Escitalopram 20 20 mg = 1 Active Mische r MG Oral Tablet tab, PO, 019 Neuro [Lexapro] Daily, # 30 tab, 0 Refill(s) omeprazole 40 mg 40 mg = 1 Active Misch er oral delayed cap, PO, 019 Neuro release capsule Daily, # 30 cap, 0 Refill(s) amLODIPine 5 mg 5 mg = 1 Active [facility] oral tablet tab, PO, 019 Neuro Daily, # 90 tab, 0 Refill(s) Atropine Sulfate 2 tab, PO, Active Misc her 0.025 MG / PRN, PRN for 019 Neuro Diphenoxylate loose stool, Hydrochloride 0 Refill(s) 2.5 MG Oral Tablet [Lomotil] lovastatin 20 mg 20 mg = 1 Active Misch er oral tablet tab, PO, 019 Neuro Bedtime, # 30 tab, 0 Refill(s) rOPINIRole 2 mg 2 mg = 1 Active [facility] oral tablet tab, PO, 019 Neuro BID, 0 Refill(s) lisinopril 40 mg 40 mg = 1 Active Misch er oral tablet tab, PO, 019 Neuro Daily, # 30 tab, 0 Refill(s) donepezil 10 mg 10 mg = 1 Active Mische r oral tablet tab, PO, 019 Neuro Daily, # 30 tab, 0 Refill(s) ProAir HFA 1 - 2 puffs, Active [facility] PO, Q4H, PRN 019 Neuro Wheezing / cough / shortness of breath, # 1 ea, 0 Refill(s) Allergies, Adverse Reactions, Alerts Substance Category Reaction Severity Reaction Status Date Comments S ource type Reported Avelox Assertion IL^Mild Drug Active Mische r allergy Neuro Immunizations No Data Provided for This Section Results No Data Provided for This Section Pathology Reports No Data Provided for This Section Diagnostic Reports No Data Provided for This Section Consultation Notes No Data Provided for This Section Discharge Summaries No Data Provided for This Section History and Physicals No Data Provided for This Section Vital Signs Vital Sign Value Date Comments Source Systolic (mm Hg) 183 05/25/2020 [facility] [place] Diastolic (mm Hg) 90 05/25/2020 [facility] Heart Rate 71 05/25/2020 [facility] Respitory Rate 16 05/25/2020 [facility] Temperature Oral (F) 98.6 F 05/25/2020 [facility] Height 149.86 cm 05/25/2020 [facility] Weight 95.455 05/25/2020 [facility] BMI Calculated 42.5 05/25/2020 [facility] Systolic (mm Hg) 175 03/24/2020 [facility] [place] Diastolic (mm Hg) 84 03/24/2020 [facility] Heart Rate 73 03/24/2020 [facility] Height 149.86 cm 03/24/2020 [facility] Weight 90.909 03/24/2020 [facility] BMI Calculated 40.48 [facility] Systolic (mm Hg) 147 07/24/2019 [facility] Diastolic (mm Hg) 126 07/24/2019 [facility] Heart Rate 60 07/24/2019 [facility] Respitory Rate 16 07/24/2019 [facility] Height 149.86 cm 07/24/2019 [facility] Weight 97.273 07/24/2019 [facility] BMI Calculated 43.31 07/24/2019 [facility] Systolic (mm Hg) 140 05/21/2019 [facility] Diastolic (mm Hg) 73 05/21/2019 [facility] Heart Rate 61 05/21/2019 [facility] Respitory Rate 16 05/21/2019 [facility] Height 149.86 cm 05/21/2019 [facility] Weight 97.273 05/21/2019 [facility] BMI Calculated 43.31 05/21/2019 [facility] Height 147.32 cm 03/21/2019 [facility] Weight 98.182 03/21/2019 [facility] BMI Calculated 45.24 03/21/2019 [facility] Respitory Rate 16 03/21/2019 [facility] Heart Rate 78 03/21/2019 [facility] Systolic (mm Hg) 156 03/21/2019 [facility] [place] [facility] Diastolic (mm Hg) 83 03/21/2019 [facility] Height 149.86 cm 02/21/2019 [facility] Weight 90.909 02/21/2019 [facility] BMI Calculated 40.48 02/21/2019 [facility] Respitory Rate 16 02/21/2019 [facility] Heart Rate 63 02/21/2019 [facility] Systolic (mm Hg) 154 02/21/2019 [facility] Diastolic (mm Hg) 85 02/21/2019 [facility] Encounters Location Location Encounter Encounter Reason Attending ADM DC Stat us Source Details Type Number For Provider Date Date Visit [facility] Outpatient [id number] Jeffrey 02/21 02/22 [facility] [id number] Jeffrey 03/21 Active [facility] Outpatient [id number] Jeffrey 03/21 03/22 [facility] Outpatient [id number] Jeffrey 05/21 Active [facility] MNA Outpatient [id number] Jeffrey 05/21 05/22 [facility]2018 Neuro [facility] Outpatient [id number] Jeffrey 07/24 [facility] [id number] Jeffrey 07/24 07/25 [facility] [place] [facility] Outpatient [id number] Jeffrey 09/16 [facility] [place] [facility] [id number] Jeffrey 09/16 09/16 [facility] [place] Neuro Jenkins Outpatient [id number] Jeffrey 03/24 [facility] Outpatient [id number] Villa 03/24 03/25 [facility] [place] /2019 Neuro Jenkins Outpatient [id number] Jeffrey 03/30 [facility] Amb[facility] [id number] Villa 03/30 03/30 [facility] [place] /2019 Neuro Jenkins Outpatient [id number] Jeffrey 05/25 [facility] [place] [facility] Out[facility] [id number] Villa 05/25 05/26 [facility] [place] /2019 Neuro [facility] Outpatient [id number] Jeffrey 08/24 [facility] Procedures No Data Provided for This Section Assessment and Plan No Data Provided for This Section Plan of Care No Data Provided for This Section Social History Social History Date Source Social History TypeResponse 05/25/2020 [facility] Smoking Status Former smoker; Type: Cigarettes; Exposur e to Tobacco Smoke None; Cigarette Smoking Last 365 Days No; Reg Smoking Cessation Counseling No entered on: 05/25/20 Family History No Data Provided for This Section Advance Directives No Data Provided for This Section Functional Status No Data Provided for This Section
[2020-06-05] MEDS ORDERED: LIDOCAINE 1% 20 ML MDV ONE (10:37)
--- NOTE | 2020-06-05 10:40 | RAD REPORT ---
EXAM DESCRIPTION: RAD - Foot Right 3 View - 06/05/2020 10:22 am CLINICAL HISTORY: laceration Fall, pain COMPARISON: Foot Right 3 View dated 05/10/2019; Foot Right 3 View dated 08/18/2018 FINDINGS: Flatfoot deformity is identified. Posterior tibialis tendon dysfunction is suspected. Soft tissue swelling is seen affecting the first and second toe. No acute fracture is seen.
--- NOTE | 2020-06-05 11:11 | ER ---
Nurse's Notes [facility] Name: Radha Bentley Age: 79 yrs Sex: Female : 1940 Arrival Date: 06/05/2020 Time: 09:39 Bed 18 Private MD: Diagnosis: Laceration without foreign body of right great toe without damage to nail Presentation: 06/05 09:49 Chief complaint: Patient states: slipped and fell this morning, called EMS to help her iw up, has laceration to great toe , bruising to 2nd toe , no other injuries. Coronavirus screen: At this time, the client does not indicate any symptoms associated with coronavirus-19. Ebola Screen: Patient negative for fever greater than or equal to 101.5 degrees Fahrenheit, and additional compatible Ebola Virus Disease symptoms Patient denies exposure to infectious person. Patient denies travel to an Ebola-affected area in the 21 days before illness onset. No symptoms or risks identified at this time. Complicating Factors: There are no complicating factors for this patient. Initial Sepsis Screen: Does the patient meet any 2 criteria? No. Patient's initial sepsis screen is negative. Does the patient have a suspected source of infection? No. Patient's initial sepsis screen is negative. Risk Assessment: Do you want to hurt yourself or someone else? Patient reports no desire to harm self or others. Onset of symptoms was June 05, 2020. 09:49 Method Of Arrival: Wheelchair iw 09:49 Acuity: VAIBHAV 4 iw Historical: - Allergies: 09:52 Avelox; iw 09:52 Band-aid adhesive; iw - Home Meds: 09:52 amlodipine 5 mg tab once daily [Active]; aspirin 81 mg Oral chew 1 tab once daily iw [Active]; bupropion HCl 150 mg Oral TbER 2 times per day [Active]; donepezil 10 mg Oral tab once daily [Active]; escitalopram oxalate 20 mg Oral tab twice a day [Active]; gabapentin 300 mg Oral cap twice a day [Active]; levothyroxine 125 mcg tab once daily [Active]; lovastatin 20 mg Oral tab 1 tab once daily [Active]; misoprostol 200 mcg Oral tab once a day [Active]; metoprolol succinate 50 mg Oral Tb24 once daily [Active]; omeprazole 40 mg Oral cpDR once daily [Active]; potassium chloride 10 mEq Oral TbER once daily [Active]; ropinirole 2 mg Oral tab twice a day [Active]; - PMHx: 09:52 Diverticulitis; Heart Murmur; Hyperlipidemia; Hypertension; Hypothyroidism; Pneumonia; iw - PSHx: 09:52 Cholecystectomy; Knee surgery; shoulder; breast reduction; abdominal surgery; iw - Immunization history:: Adult Immunizations up to date, Last tetanus immunization: < 5 years ago. - Social history:: Smoking status: Patient denies any tobacco usage or history of. Screenin:45 Abuse screen: Denies threats or abuse. Nutritional screening: No deficits noted. rb1 Tuberculosis screening: No symptoms or risk factors identified. Fall Risk Fall in past 12 months (25 points). No secondary diagnosis (0 pts). No IV (0 pts). Ambulatory Aid- None/Bed Rest/Nurse Assist (0 pts). Gait- Normal/Bed Rest/Wheelchair (0 pts) Mental Status- Oriented to own ability (0 pts). Total Little Fall Scale indicates Low Risk Score (25-44 pts). Fall prevention measures have been instituted. Side Rails Up X 2 Placed close to Nursing Station 1:1 attendant Assigned to Pt. Frequent Obs/Assesments occuring As available Patient and Family Educated on Fall Prevention Program and strategies. Assessment: :45 General: Appears in no apparent distress. Behavior is calm, cooperative. Pain: rb1 Complains of pain in right great toe and second toe Pain currently is 6 out of 10 on a pain scale. Neuro: Level of Consciousness is awake, alert, obeys commands, Oriented to person, place, time, situation, Denies weakness dizziness, Pt. reports that she slipped on a blanket when she was going to the bathroom and she thinks her foot caught a piece of tile that was lifted.. Cardiovascular: Capillary refill < 3 seconds. Respiratory: Airway is patent Respiratory effort is even, unlabored, Respiratory pattern is regular, symmetrical. GI: No signs and/or symptoms were reported involving the gastrointestinal system. : No signs and/or symptoms were reported regarding the genitourinary system. Derm: Bruising that is dark purple, on right great toe and the right second toe. Musculoskeletal: Range of motion: intact in all extremities. Injury Description: Laceration sustained to right great toe is minimal bleeding noted. 10:41 Reassessment: Patient appears in no apparent distress at this time. No changes from rb1 previously documented assessment. Provider at the bedside to perform laceration repair. 11:40 Reassessment: Patient appears in no apparent distress at this time. Patient and/or rb1 family updated on plan of care and expected duration. Pain level reassessed. Patient is alert, oriented x 3, equal unlabored respirations, skin warm/dry/pink. pt. was talking on the telephone. Vital Signs: 09:49 BP 145 / 62; Pulse 74; Resp 16; Temp 98.6(O); Pulse Ox 98% on R/A; Weight 108.86 kg; iw Height 4 ft. 11 in. (149.86 cm); Pain 6/10; 11:30 BP 141 / 66; Pulse 71; Resp 17; Pulse Ox 99% on R/A; rb1 09:49 Body Mass Index 48.47 (108.86 kg, 149.86 cm) iw ED Course: 09:39 Patient arrived in ED. iw 09:40 Lula Thakur, ALAN is Primary Nurse. iw 09:42 Mariela Juárez FNP-C is PHCP. snw 09:42 Ady Cuellar MD is Attending Physician. snw 09:45 Patient has correct armband on for positive identification. Bed in low position. Call rb1 light in reach. Side rails up X 1. Pulse ox on. NIBP on. 09:51 Triage completed. iw 09:52 Arm band placed on. iw 10:22 Foot Right 3 View XRAY In Process Unspecified. EDMS 10:23 Lois Rivas, RN is Primary Nurse. rb1 12:03 No provider procedures requiring assistance completed. Patient did not have IV access rb1 during this emergency room visit. Administered Medications: 10:08 CANCELLED (UTD): Tetanus-Diphtheria Toxoid Adult 0.5 ml IM once snw 10:41 Drug: Lidocaine (1 %) 1 vials Volume: 20 ml; Route: Infiltration; rb1 Outcome: 11:11 Discharge ordered by . snw 12:03 Patient left the ED. rb1 12:03 Discharged to home via wheelchair. rb1 12:03 Condition: stable 12:03 Discharge instructions given to patient, Instructed on discharge instructions, follow up and referral plans. medication usage, Demonstrated understanding of instructions, follow-up care, medications, Prescriptions given X 2. Signatures: Dispatcher [employer] EDMariela Goodson, COBBLER SOLE-C COBBLER SOLE-Csnw Lula Thakur, RN RN Cristy Mcnally RN RN [email or web address] Lois Rivas, RN RN rb1 Corrections: (The following items were deleted from the chart) : 11:30 Reassessment: Report given to Emilee, Nurse at [facility] at 1030. Pt states "I aa5 need to speak to my grandson Sabianist before I go anywhere, I need to let him know". Attempted to call pt's grandson at [phone], [phone], and [phone], left voicemail for him to call back, pt notified. Awaiting for grandson to return phone call before transfer. . aa5 : 11:45 Reassessment: Pt was able to contact grandson using ER's Ipad/WAVE ([employer]). Pt aa5 notified grandson of transfer to [facility]. EMS was contacted by ER marketing secretary for transfer to [facility]. . aa5 12: 12:00 Transferred by ground EMS to [facility], [facility], Transfer form aa5 completed. X-rays sent w/ patient. Note: Report given to [facility] aa5 12: 12:00 Condition: stable aa5 aa5 12: 12:00 Instructed on the need for transfer, Demonstrated understanding of instructions, aa5 aa5 12: 12:00 Patient transferred, IV remains in place. aa5 5 : 12:00 No provider procedures requiring assistance completed. aa5 aa5
--- NOTE | 2020-06-05 11:11 | EDPHYS ---
Physician Documentation [facility] Name: Radha Bentley Age: 79 yrs Sex: Female : 1940 Arrival Date: 06/05/2020 Time: 09:39 Bed 18 Private MD: KENROY Physician Ady Cuellar HPI: 06/05 10:22 This 79 yrs old Female presents to ER via Wheelchair with complaints of snw Laceration, Toe Injury. 10:22 Onset: The symptoms/episode began/occurred suddenly, just prior to arrival. The patient snw has not experienced similar symptoms in the past. It is unknown whether or not the patient has recently seen a physician, sees Dr. Mann. 10:23 The patient presents with decreased range of motion, an injury, pain. The complaints snw affect the right foot. Context: pt was walking in the living room, one foot on floor and other foot caught the edge of a blanket. The blanket slipped and pt fell. She struck her foot on something and great and second toe are painful, great toe with laceration underneath. Associated signs and symptoms: The patient has no apparent associated signs or symptoms. Severity of symptoms: At their worst the symptoms were moderate. Historical: - Allergies: 09:52 Avelox; iw 09:52 Band-aid adhesive; iw - Home Meds: :52 amlodipine 5 mg tab once daily [Active]; aspirin 81 mg Oral chew 1 tab once daily iw [Active]; bupropion HCl 150 mg Oral TbER 2 times per day [Active]; donepezil 10 mg Oral tab once daily [Active]; escitalopram oxalate 20 mg Oral tab twice a day [Active]; gabapentin 300 mg Oral cap twice a day [Active]; levothyroxine 125 mcg tab once daily [Active]; lovastatin 20 mg Oral tab 1 tab once daily [Active]; misoprostol 200 mcg Oral tab once a day [Active]; metoprolol succinate 50 mg Oral Tb24 once daily [Active]; omeprazole 40 mg Oral cpDR once daily [Active]; potassium chloride 10 mEq Oral TbER once daily [Active]; ropinirole 2 mg Oral tab twice a day [Active]; - PMHx: 09:52 Diverticulitis; Heart Murmur; Hyperlipidemia; Hypertension; Hypothyroidism; Pneumonia; iw - PSHx: 09:52 Cholecystectomy; Knee surgery; shoulder; breast reduction; abdominal surgery; iw - Immunization history:: Adult Immunizations up to date, Last tetanus immunization: < 5 years ago. - Social history:: Smoking status: Patient denies any tobacco usage or history of. ROS: 10:22 Constitutional: Negative for fever, chills, and weight loss, Eyes: Negative for injury, snw pain, redness, and discharge, ENT: Negative for injury, pain, and discharge, Neck: Negative for injury, pain, and swelling, Cardiovascular: Negative for chest pain, palpitations, and edema, Respiratory: Negative for shortness of breath, cough, wheezing, and pleuritic chest pain, Abdomen/GI: Negative for abdominal pain, nausea, vomiting, diarrhea, and constipation, Back: Negative for injury and pain, : Negative for injury, bleeding, discharge, and swelling, Skin: Negative for injury, rash, and discoloration, Neuro: Negative for headache, weakness, numbness, tingling, and seizure, Psych: Negative for depression, anxiety, suicide ideation, homicidal ideation, and hallucinations. 10:22 MS/extremity: Positive for injury or acute deformity, decreased range of motion, pain, tenderness, of the right second toe and right first toe. Exam: 10:20 Constitutional: This is a well developed, well nourished patient who is awake, alert, snw and in no acute distress. Head/Face: Normocephalic, atraumatic. Eyes: Pupils equal round and reactive to light, extra-ocular motions intact. Lids and lashes normal. Conjunctiva and sclera are non-icteric and not injected. Cornea within normal limits. Periorbital areas with no swelling, redness, or edema. ENT: Nares patent. No nasal discharge, no septal abnormalities noted. Tympanic membranes are normal and external auditory canals are clear. Oropharynx with no redness, swelling, or masses, exudates, or evidence of obstruction, uvula midline. Mucous membranes moist. Neck: Trachea midline, no thyromegaly or masses palpated, and no cervical lymphadenopathy. Supple, full range of motion without nuchal rigidity, or vertebral point tenderness. No Meningismus. Chest/axilla: Normal chest wall appearance and motion. Nontender with no deformity. No lesions are appreciated. Cardiovascular: Regular rate and rhythm with a normal S1 and S2. No gallops, murmurs, or rubs. Normal PMI, no JVD. No pulse deficits. Respiratory: Lungs have equal breath sounds bilaterally, clear to auscultation and percussion. No rales, rhonchi or wheezes noted. No increased work of breathing, no retractions or nasal flaring. Abdomen/GI: Soft, non-tender, with normal bowel sounds. No distension or tympany. No guarding or rebound. No evidence of tenderness throughout. Back: No spinal tenderness. No costovertebral tenderness. Full range of motion. Neuro: Awake and alert, GCS 15, oriented to person, place, time, and situation. Cranial nerves II-XII grossly intact. Motor strength 5/5 in all extremities. Sensory grossly intact. Cerebellar exam normal. Normal gait. Psych: Awake, alert, with orientation to person, place and time. Behavior, mood, and affect are within normal limits. 10:20 Skin: Appearance: normal except for affected area, injury, contusion(s), that are deep, of the right first toe and right second toe, laceration(s), the wound is approximately 4 cm(s), with a depth of 1 cm(s), of the plantar aspect of right first toe, x-ray shows osteoporosis and tuft fx of great toe, no entrance, exit wounds or foreign body. Vital Signs: 09:49 BP 145 / 62; Pulse 74; Resp 16; Temp 98.6(O); Pulse Ox 98% on R/A; Weight 108.86 kg; iw Height 4 ft. 11 in. (149.86 cm); Pain 6/10; 11:30 BP 141 / 66; Pulse 71; Resp 17; Pulse Ox 99% on R/A; rb1 09:49 Body Mass Index 48.47 (108.86 kg, 149.86 cm) iw Laceration: 11:08 Wound Repair of 4cm ( 1.6in ) subcutaneous laceration to right first toe. snw underneath/plantar surface of right great toe. Distal neuro/vascular/tendon intact. Anesthesia: Local anesthetic administered with 5 mls of 1% lidocaine. Wound prep: Extensive cleansing with betadine by mi. Skin closed with 7 4-0 Prolene using simple sutures and sterile technique. Dressed with Kerlix, non-adherent dressing. Patient tolerated well. MDM: 09:48 [facility] 11:09 Data reviewed: vital signs, nurses notes. Data interpreted: Pulse oximetry: on room air snw is 98 %. Interpretation: normal. Counseling: I had a detailed discussion with the patient and/or guardian regarding: the historical points, exam findings, and any diagnostic results supporting the discharge/admit diagnosis, the presence of at least one elevated blood pressure reading (>120/80) during this emergency department visit, the need for outpatient follow up, to return to the emergency department if symptoms worsen or persist or if there are any questions or concerns that arise at home. Response to treatment: the patient's symptoms have markedly improved after treatment. Special discussion: I discussed in detail with the patient the higher chance of wound infection based on his presenting history. 06/05 10:04 Order name: Foot Right 3 View XRAY; Complete Time: 11:08 rb1 06/05 10:07 Order name: Dressing - Wound; Complete Time: 10:27 snw 06/05 10:07 Order name: Gloves, Sterile; Complete Time: 10:28 snw 06/05 10:07 Order name: Setup Suture Tray; Complete Time: 10:28 snw 06/05 11:30 Order name: Post-op shoe; Complete Time: 11:41 snw Administered Medications: 10:08 CANCELLED (UTD): Tetanus-Diphtheria Toxoid Adult 0.5 ml IM once snw 10:41 Drug: Lidocaine (1 %) 1 vials Volume: 20 ml; Route: Infiltration; rb1 Disposition: 06/05/20 11:11 Discharged to Home. Impression: Laceration without foreign body of right great toe without damage to nail. - Condition is Stable. - Discharge Instructions: Laceration Care, Adult, Sutured Wound Care, Toe Fracture, How to Use a Cast Shoe. - Prescriptions for Keflex 500 mg Oral Capsule - take 1 capsule by ORAL route every 8 hours for 10 days; 30 capsule. Ultram 50 mg Oral Tablet - take 1 tablet by ORAL route every 6 hours As needed; 12 tablet. - Medication Reconciliation Form, Thank You Letter, Antibiotic Education, Prescription Opioid Use form. - Follow up: Emergency Department; When: As needed; Reason: Worsening of condition. Follow up: Private Physician; When: 10 - 14 days; Reason: Recheck today's complaints, Staple/Suture removal, Re-evaluation by your physician. Addendum: 06/08/2020 10:17 Co-signature as Attending Physician, Ady Cuellar MD I agree with the assessment and c carranza plan of care. Signatures: Dispatcher [employer] EDAdy Booth MD MD cha Waters, Shelly, NATIONAL SALES-C [employer]ATIONAL SAL[employer] Lula Thakur, RN RN iw Lois Rivas, RN RN rb1 Corrections: (The following items were deleted from the chart) 06/05 10:08 10:07 Tetanus-Diphtheria Toxoid Adult 0.5 ml IM once ordered. snw snw 11:13 11:11 06/05/2020 11:11 Discharged to Home. Impression: Laceration without foreign body snw of right great toe without damage to nail. Condition is Stable. Forms are Medication Reconciliation Form, Thank You Letter, Antibiotic Education, Prescription Opioid Use. Follow up: Emergency Department; When: As needed; Reason: Worsening of condition. Follow up: Private Physician; When: 2 - 3 days; Reason: Recheck today's complaints, Continuance of care, Re-evaluation by your physician. snw 12:03 11:13 06/05/2020 11:11 Discharged to Home. Impression: Laceration without foreign body rb1 of right great toe without damage to nail. Condition is Stable. Discharge Instructions: Laceration Care, Adult, Sutured Wound Care, Toe Fracture, How to Use a Cast Shoe. Prescriptions for Keflex 500 mg Oral Capsule - take 1 capsule by ORAL route every 8 hours for 10 days; 30 capsule, Ultram 50 mg Oral Tablet - take 1 tablet by ORAL route every 6 hours As needed; 12 tablet. and Forms are Medication Reconciliation Form, Thank You Letter, Antibiotic Education, Prescription Opioid Use. Follow up: Emergency Department; When: As needed; Reason: Worsening of condition. Follow up: Private Physician; When: 10 - 14 days; Reason: Recheck today's complaints, Staple/Suture removal, Re-evaluation by your physician. snw
[2020-06-06 14:17] VITALS: BP 145/62; TEMP 98.6; O2SAT 98
== END 2020-06-05 12:03 | disposition home or self-care (01) ==
LOC: ER 09:22
PROC: 0JQQ0ZZ Repair Right Foot Subcutaneous Tissue and Fascia, Open Approach (ICD-10-PCS; principal; 2020-06-05)
DX: S91.111A Laceration without foreign body of right great toe without damage to nail, initial encounter (principal); W01.198A Fall on same level from slipping, tripping and stumbling with subsequent striking against other object, initial encounter; Y93.01 Activity, walking, marching and hiking; Y92.008 Other place in unspecified non-institutional (private) residence as the place of occurrence of the external cause; Z79.82 Long term (current) use of aspirin; Z88.1 Allergy status to other antibiotic agents; Z91.048 Other nonmedicinal substance allergy status; I10 Essential (primary) hypertension; E03.9 Hypothyroidism, unspecified; R01.1 Cardiac murmur, unspecified
CPT/HCPCS: 99284

== ENCOUNTER 2020-06-30 17:46 | Emergency (ER) | payer OTHER ==
--- OUTSIDE RECORDS SUMMARY | 2020-06-30 17:49 | XMS REPORT | Summary of Care ---
:1940 Author Organization [facility] - [facility] Address [address] [place] [id number] Care Team Providers Name Role Phone Johnathan Primary Care Provider Reason for Referral Radiology Services (STAT) Status Reason Specialty Diagnoses / Referred By Referred To Procedures Contact Contact New Request Diagnostic Diagnoses Acute pain of right shoulder Sariah Miller, Radiology Procedures XR FOREARM 2 VW RIGHT PAC [address] [facility] [place] [address] Radiology Services (STAT) Status Reason Specialty Diagnoses / Referred By Referred To Procedures Contact Contact New Request Diagnostic Diagnoses Acute pain of right shoulder Sariah Miller, Radiology Procedures XR SHOULDER 2+ VW RIGHT PAC [address] [facility] [place] [id number] Reason for Visit Reason Comments Shoulder Pain Auth/Cert Status Reason Specialty Diagnoses / Referred By Referred To Procedures Contact Contact Emergency Medicine [facility] Em ergency Dept [address] [phone] Fax: Encounter Details Date Type Department Care Team Description 06/28/2020 Emergency [facility]-Emergency Sariah Miller, PAC Closed nondisplaced fracture of acromial end of right clavicle, initial encounter (Primary Dx); Department [address] [facility] Acute pain of right shoulder [address] [place], [place] [address] [phone] [place] [address] [phone] Allergies Active Allergy Reactions Severity Noted Date Comments Adhesive Tape-Silicones Rash Medium 05/30/2016 Moxifloxacin Hcl Rash Medium 05/30/2016 documented as of this encounter (statuses as of 06/28/2020) Medications Medication Sig Dispensed Refills Start Date End Date Status lisinopril Take 40 mg by 0 Activ e (PRINIVIL,ZESTRIL) mouth daily. 40 mg tablet escitalopram Take 20 mg by 0 Act lyle oxalate (LEXAPRO) mouth 2 (two) 20 mg tablet times daily. gabapentin Take 600 mg by 0 Acti ve (NEURONTIN) 300 mg mouth 2 (two) capsule times daily. omeprazole Take 40 mg by 0 Activ e (PRILOSEC) 40 mg mouth daily. capsule metoprolol Take 50 mg by 0 Activ e succinate XL mouth daily. (TOPROL XL) 50 mg 24 hr tablet rOPINIRole (REQUIP) Take 2 mg by 0 Active 2 mg tablet mouth 2 (two) times daily. levothyroxine Take 125 mcg 0 Act lyle (SYNTHROID) 125 mcg by mouth tablet daily. donepezil (ARICEPT) Take 10 mg by 0 Active 10 mg tablet mouth daily. amLODIPine Take 5 mg by 0 Active (NORVASC) 5 mg mouth daily. tablet lovastatin Take 20 mg by 0 Activ e (MEVACOR) 20 mg mouth daily. tablet diphenoxylate-atrop Take 1 tablet 0 Active ine (LOMOTIL) by mouth every 2.5-0.025 mg tablet 6 (six) hours as needed. ALBUTEROL SULFATE Inhale. 0 Ac tive INHALE acetaminophen-codei Take 1 tablet 12 tablet 0 06/28/2020 Active ne 300-30 mg by mouth every tabletIndications: 4 (four) hours acute pain as needed for Pain (scale 4-6). Indications: acute pain fenofibrate Take 145 mg by 0 06/28/2020 Di scontinued (TRICOR) 145 mg mouth daily. tablet misoprostol Take 200 mcg 0 06/28/2020 Disc ontinued (CYTOTEC) 200 mcg by mouth tablet daily. acetaminophen-codei 0 08/18/2018 0 Discontinued ne 300-30 mg tablet sucralfate malate, Apply 0.25 1 Tube 0 02/19/2020 0 Discontinued polymerized 1 Inches as gram/10 mL directed 4 PsteIndications: (four) times Morsicatio buccarum daily as needed for Pain (scale 1-3). documented as of this encounter (statuses as of 06/28/2020) Active Problems Problem Noted Date Morbid obesity 05/31/2016 documented as of this encounter (statuses as of 06/28/2020) Social History Tobacco Use Types Packs/Day Years Used Date Never Smoker Smokeless Tobacco: Never Used Alcohol Use Drinks/Week oz/Week Comments Yes 0 Standard drinks or equivalent 0.0 Occasional Drinker Sex Assigned at Date Recorded Not on file COVID-19 Exposure Response Date Recorded In the last month, have you been in contact with No / Unsure 06/28/2020 11:53 AM CDT someone who was confirmed or suspected to have Coronavirus / COVID-19? documented as of this encounter Last Filed Vital Signs Vital Sign Reading Time Taken Comments Blood Pressure 180/82 06/28/2020 2:30 PM CDT Pulse 61 06/28/2020 2:30 PM CDT Temperature 36.3 C (97.4 F) 06/28/2020 11:54 AM CDT Respiratory Rate 17 06/28/2020 2:13 PM CDT Oxygen Saturation 96% 06/28/2020 2:13 PM CDT Inhaled Oxygen Concentration - - Weight 95.3 kg (210 lb) 06/28/2020 11:54 AM CDT Height - - Body Mass Index 42.41 02/19/2020 2:23 PM CDT documented in this encounter Discharge Instructions Sariah Guo, PAC - 06/28/2020DIAGNOSIS 1. Clavicle fracture right NO LIFE-THREATENING FINDINGS ON TODAY'S EXAM. PROCEDURES IN THE ER TODAY: Shoulder immobilizer placement to arm MEDICATIONS ADMINISTERED IN THE ER TODAY: Fentanyl 25 mcg IV Lisinopril 40mg x 1 dose Metoprolol XL 50mg x 1 palomo Amlodipine 5mg x 1 dose YOUR PRESCRIPTIONS AND [id number] MEDICATION RECOMMENDATIONS: Tylenol #3 SPECIAL CARE INSTRUCTIONS: Keep your arm in the shoulder immobilizer until you see the orthopedist for further evaluation. Take pain medication as needed or over the counter ibuprofen. Avoid use of your right arm until you are instructed by the specialist. Take care when walking or moving that you have something to hold onto if you lose your balance. Apply ice to your shoulder if you have swelling or pain. Return to the ER if you feel like you are getting worse or you develop difficulty moving/feeling your right hand/wrist/arm. FOLLOW-UP RECOMMENDATIONS: RECOMMEND FOLLOW-UP WITH A PRIMARY CARE PROVIDER OR SPECIALIST IN 2-5 DAYS, ESPECIALLY IF NO IMPROVEMENT IN SYMPTOMS. TO FOLLOW-UP WITHIN THE [facility], TRY THESE OPTIONS (CLINIC APPOINTMENTS AVAILABLE ON [id number] BASIS): 1. SCHEDULE AN APPOINTMENT ONLINE AT WWW.[facility] 2. OR CALL THE [facility] AT OR 3. OR CALL YOUR [facility] PHYSICIAN'S OFFICE DIRECTLY IF YOU ARE ALREADY AN ESTABLISHED [facility] PATIENT. OR, YOU MAY FOLLOW-UP WITH A PROVIDER OF YOUR CHOICE, SUCH : 1. A PHYSICIAN OF YOUR CHOICE 2. [facility], . LOCATIONS IN [facility] 3. [facility], [address] [place] [address]; [phone] RETURN TO ER FOR WORSENING OF SYMPTOMS. AttachmentsThe following attachments cannot be sent through Care Everywhere. Fracture, Clavicle ([place]i)documented in this encounter ED Notes Carlito Brar RN - 06/28/2020 11:53 AM CDTPatient c/o right shoulder pain after falling onto her shoulder appx 1 hour ago. Patient bent over and lost her balance and fell onto her shoulder. Reports that she did not hit her head. documented in this encounter Miscellaneous Notes ED Nurse Note - Katherin Gomez RN - 06/28/2020 3:01 PM CDTPatient discharged with prescription, AVS, discharge instructions, and told to follow-up with Ortho and PCP. All questions answered patient escorted to son vehicle via wheelchair by ED staff. No acute distress noted. D Nurse Note - Gladys Man RN - 06/28/2020 12:45 PM CDTPatient returned from Radiology at this time D Nurse Note - Gladys Man RN - 06/28/2020 12:30 PM CDTPatient transported to Radiology at this time. documented in this encounter Plan of Treatment Health Maintenance Due Date Last Done Comments Depression Screening 1954 DTaP,Tdap,and Td Vaccines (1 - Tdap) 1961 Zoster Recombinant Vaccine (SHINGRIX) (1 of 2) 1992 Medicare Wellness Visit 2007 Osteoporosis Screening 2007 PNEUMOCOCCAL VACCINES 65+ (1 of 1 - PPSV23) 2007 INFLUENZA VACCINE (#1) 2020 documented as of this encounter Implants Implanted Type Area Food And Beverage Server Device Shelf Model / Identifier Expiration Serial / Lot Date Plate PLATE Left: [facility] [id number] / Implanted: Qty: 1 on 12/05/2016 by Gianfranco Sanchez Jr., DPM at [facility] [employer] [id number] / [id number] Screw SCREW Left: [facility] [id number] / Implanted: Qty: 1 on 12/05/2016 by Gianfranco Sanchez Jr., DPM at [facility] [employer] [id number] / [id number] Screw SCREW Left: [facility] [id number] / Implanted: Qty: 1 on 12/05/2016 by Gianfranco Sanchez Jr., DPM at [facility] [employer] [id number] / [id number] Screw SCREW Left: [facility] [id number] / Implanted: Qty: 2 on 12/05/2016 by Gianfranco Sanchez Jr., DPM at [facility] [employer] [id number] / [id number] Screw SCREW Left: [facility] [id number] / Implanted: Qty: 1 on 12/05/2016 by Gianfranco Sanchez Jr., DPM at [facility] [employer] [id number] / [id number] Medium Straight Phalnix TOE Toe [facility] [id number] / Implanted: Qty: 1 on 06/01/2016 by Gianfranco Sanchez Jr., DPM at [facility] [employer] [id number] / [id number] Small Straight Phalinx TOE Toe [facility] [id number] / Implanted: Qty: 2 on 06/01/2016 by Gianfranco Sanchez Jr., DPM at [facility] [employer] [id number] / [id number] documented as of this encounter Procedures Procedure Name Priority Date/Time Associated Diagnosis Comme nts XR SHOULDER 2+ VW STAT 06/28/2020 12:49 PM Acute pain of ri ght Results for this RIGHT CDT shoulder procedure are i n the results section. XR FOREARM 2 VW STAT 06/28/2020 12:49 PM Acute pain of righ t Results for this RIGHT CDT shoulder procedure are i n the results section. documented in this encounter Results XR FOREARM 2 VW RIGHT (06/28/2020 12:49 PM CDT) Specimen Impressions Performed At PACS/VR/DOSE No acute bony abnormality. Narrative Performed At EXAM: PACS/VR/DOSE XR FOREARM 2 VW RIGHT HISTORY: right arm pain COMPARISON: None. FINDINGS: Osteopenia is noted. Osteoarthritic changes are seen a t the STT and thumb carpometacarpal joints. Mild osteoarthri tic changes are present at the elbow. No acute fracture or dislocation is seen. Procedure Note [facility], Radiant Results Inft User - 2019 12:54 PM CDT EXAM: XR FOREARM 2 VW RIGHT HISTORY: right arm pain COMPARISON: None. FINDINGS: Osteopenia is noted. Osteoarthritic tejeda ges are seen at the STT and thumb carpometacarpal joints. Mild osteoarthri tic changes are present at the elbow. No acute fracture or dislocation is seen. IMPRESSION No acute bony abnormality. Performing Organization Address City/State/Zipcode Phone Number PACS/VR/DOSE XR SHOULDER 2+ VW RIGHT (06/28/2020 12:49 PM CDT) Specimen Impressions Performed At PACS/VR/DOSE Comminuted distal clavicle fracture. Narrative Performed At EXAM: PACS/VR/DOSE XR SHOULDER 2+ VW RIGHT HISTORY: shoulder pain COMPARISON: None. FINDINGS: A comminuted fracture of the distal clav icle is seen. There is resultant mild widening of the acromioclavicular j oint. Alignment is maintained at the glenohumeral joint which exhibits osteoarthritic c hanges manifested by joint space narrowing and osteophytosis. Osteopenia is suggested. Atherosclerotic calcifications are prese nt in the aortic arch. Procedure Note [facility], Radiant Results Inft User - 2019 12:55 PM CDT EXAM: XR SHOULDER 2+ VW RIGHT HISTORY: shoulder pain COMPARISON: None. FINDINGS: A comminuted fracture of the distal clav icle is seen. There is resultant mild widening of the acromioclavicular j oint. Alignment is maintained at the glenohumeral joint which exhibits os teoarthritic changes manifested by joint space narrowing and osteophytosis. Osteopenia is suggested. Atherosclerotic calcifications are prese nt in the aortic arch. IMPRESSION Comminuted distal clavicle fracture. Performing Organization Address City/State/[facility]code Phone Number PACS/VR/DOSE documented in this encounter Visit Diagnoses Diagnosis Closed nondisplaced fracture of acromial end of right clavicle, initial encounter - Primary Acute pain of right shoulder documented in this encounter Administered Medications Medication Order MAR Action Action Date Dose Rate Site amLODIPine (NORVASC) tablet 5 mg Given 06/28/2020 12:25 PM CDT 5 mg 5 mg, Oral, ONCE, 1 dose, Sun06/28/20 at 1315, DIMITRIS FENTanyl PF (SUBLIMAZE (PF)) injection 25 Given 06/28/2020 12:30 PM CDT 25 mcg mcg 25 mcg, Slow IV Push, ONCE, 1 dose, 06/28/20 at 1315, STAT HYDROcodone-acetaminophen (NORCO 5) 5-325 Given 2019 2:23 PM CDT 1 tablet mg tablet 1 tablet 1 tablet, Oral, ONCE, 1 dose, Sun06/28/20 at 1530, DIMITRIS lisinopriL (PRINIVIL,ZESTRIL) tablet 40 mg Given 06/28/2020 12:25 PM CDT 40 mg 40 mg, Oral, ONCE, 1 dose, Sun06/28/20 at 1315, Routine metoprolol succinate XL (TOPROL XL) tablet 50 Given 12:25 PM CDT 50 mg mg 50 mg, Oral, ONCE, 1 dose, Sun06/28/20 at 1315, Routine documented in this encounter Insurance Payer Benefit Plan / Subscriber ID Effective Dates Phone Addre ss Type Group LUIS SUGGS [id number] 2019-Prese Medicare Adv PLUS PLUS nt HMO CLASSIC/VALUE documented as of this encounter
--- OUTSIDE RECORDS SUMMARY | 2020-06-30 17:49 | XMS REPORT | Continuity of Care Document ---
:1940 Author Organization [facility] t Address [address] [place] [address] Care Team Providers Name Role Phone Carla Becerra Attending Clinician Hollis Garcia Attending Clinician Yocasta CLAY, G Attending Clinician Timothy WOLFE Attending Clinician Problems [...] 2020-05-28 Me moria falls 00:48:31 l (finding) [place] Recurrent falls (finding) Active Problem 05/28/2020 [facility] Transient Problem Active 2020-05-28 Me moria ischemic 00:48:31 l attack Raul (disorder) Transient ischemic attack (disorder) Active Problem 05/28/2020 [facility] Tremor Problem Active 2020-05-28 Memor ia (finding) 00:48:31 l Tremor [place] (finding) Active Problem 05/28/2020 [facility] Allergies, Adverse Reactions, Alerts Allergy Allergy Status Severity Reaction(s) Onset Inactive Treating Comm ents Source Name Type Date Date Clinician Avelox Avelox Active MT^Mild Memoria lavelle Carter Social History Smoking Status Start Date Stop Date Source Social History 2020-05-25 18:44:53 2020-05-25 18:44:53 [facility] Raul Medications Ordered Filled Start Stop Current Ordering Indication Dosage Frequency Signature Comments Components Source Medication Medication Date Date Medication? Clinician (SIG) Name Name primidone Yes 50 mg = 1 Mem oria 50 mg oral 8-25 tab, PO, l tablet 19:03: BID, # 180 Jessie nn 00 tab, 3 Refill(s), Pharmacy: [facility] #[id number], 149.86, cm, 05/25/20 13:41:00 CDT, Height, 95.455, kg, 05/25/20 13:41:00 CDT, Weight primidone No 50 mg = 1 Mem oria 50 mg oral 6-25 tab, PO, l tablet 13:48: Bedtime, # Jessie nn 00 90 tab, 3 Refill(s), Pharmacy: [facility] #[id number], 149.86, cm, 03/24/20 9:12:00 CDT, Height, 90.909, kg, 03/24/20 9:12:00 CDT, Weight donepezil Yes 10 mg = 1 Mem oria 10 mg oral 6-24 tab, PO, l tablet 14:32: Daily, # Raul 00 30 tab, 3 Refill(s), Pharmacy: [facility] #[id number], 149.86, cm, 03/24/20 9:12:00 CDT, Height, 90.909, kg, 03/24/20 9:12:00 CDT, Weight primidone No 50 mg = 1 Mem oria 50 mg oral 6-24 tab, PO, l tablet 14:32: Bedtime, X Jessie nn 30 day, # 30 tab, 3 Refill(s), Pharmacy: [id number], 149.86, cm, 03/24/20 9:12:00 CDT, Height, 90.909, kg, 03/24/20 9:12:00 CDT, Weight topiramate 2018-10 No 25 mg = 1 Me moria 25 MG Oral 0-24 tab, PO, l Tablet 20:22: Bedtime, # Jessie nn [Topamax] 00 30 tab, 3 Refill(s) Walker Yes 1 ea, Memoria 7-26 MISC, l 21:45: Daily, # 1 [place] 00 ea, 0 Refill(s) Adult Yes 81 mg = 1 Memoria Aspirin 81 6-21 tab, CHEW, l mg oral 20:18: Daily, # Ajay n tablet, 00 30 tab, 3 chewable Refill(s), Pharmacy: [id number] levothyroxi 2018- Yes 125 Memori a ne 125 mcg 5-24 microgram l (0.125 mg) 20:29: = 1 tab, Her ivory oral tablet 00 PO, Daily, # 30 tab, 0 Refill(s) gabapentin 2018- Yes 300 mg = 1 M emoria 300 MG Oral 5-24 cap, PO, l Capsule 20:29: BID, # 90 Jessie nn 00 cap, 1 Refill(s) metoprolol 2019- Yes 50 mg = 1 Me moria 50 mg oral 5-24 tab, PO, l tablet, 20:06: Daily, # Ajay n extended 00 30 tab, 0 release Refill(s) Escitalopra 2019- Yes 20 mg = 1 M emoria m 20 MG 5-24 tab, PO, l Oral Tablet 20:06: Daily, # Catalino rmann [Lexapro] 00 30 tab, 0 Refill(s) omeprazole 2018- Yes 40 mg = 1 Me moria 40 mg oral 5-24 cap, PO, l delayed 20:06: Daily, # Ajay n release 00 30 cap, 0 capsule Refill(s) amLODIPine 2019- Yes 5 mg = 1 Mem oria 5 mg oral 5-24 tab, PO, l tablet 20:06: Daily, # Raul 00 90 tab, 0 Refill(s) Atropine 2019-0 Yes 2 tab, PO, Mem oria Sulfate 5-24 PRN, PRN l 0.025 MG / 20:06: for loose He rmann Diphenoxyla 00 stool, 0 te Refill(s) Hydrochlori de 2.5 MG Oral Tablet [Lomotil] lovastatin 2019- Yes 20 mg = 1 Me moria 20 mg oral 5-24 tab, PO, l tablet 20:06: Bedtime, # Jessie nn 00 30 tab, 0 Refill(s) rOPINIRole 2019- Yes 2 mg = 1 Mem oria 2 mg oral 5-24 tab, PO, l tablet 20:06: BID, 0 Raul 00 Refill(s) lisinopril 2019- Yes 40 mg = 1 Me moria 40 mg oral 5-24 tab, PO, l tablet 20:06: Daily, # Raul 00 30 tab, 0 Refill(s) donepezil 2019- Yes 10 mg = 1 Mem oria 10 mg oral 5-24 tab, PO, l tablet 20:06: Daily, # Raul 00 30 tab, 0 Refill(s) ProAir HFA 2018- Yes 1 - 2 Memori a 5-24 puffs, PO, l 20:06: Q4H, PRN Raul 00 Wheezing / cough / shortness of breath, # 1 ea, 0 Refill(s) Vital Signs Vital Name Observation Time Observation Value Comments Source Systolic (mm Hg) 2020-05-25 18:41:00 Jose Franciscoyonathan Carter Diastolic (mm Hg) 2020-05-25 18:41:00 [facility] aaron Carter Heart Rate 2020-05-25 18:41:00 [facility] Respitory Rate 2020-05-25 18:41:00 Carlotta al Raul Temperature Oral (F) 2020-05-25 18:41:00 98.6 F [facility] Height 2020-05-25 18:41:00 149.86 cm [facility] Weight 2020-05-25 18:41:00 [facility] BMI Calculated 2020-05-25 18:41:00 Memori al [place] Systolic (mm Hg) 2020-03-24 14:12:00 Jose Francisco rial [place] Diastolic (mm Hg) 2020-03-24 14:12:00 Mem orial Raul Heart Rate 2020-03-24 14:12:00 [facility] [place] Height 2020-03-24 14:12:00 149.86 cm [facility] Ra[facility] Weight 2020-03-24 14:12:00 [facility] [place] BMI Calculated 2020-03-24 14:12:00 Memori al [place] Systolic (mm Hg) 2019-07-24 19:29:00 Jose Francisco rial [place] Diastolic (mm Hg) 2019-07-24 19:29:00 Mem orial Raul Heart Rate 2019-07-24 19:29:00 [facility] [place] Respitory Rate 2019-07-24 19:29:00 Memori al Raul Height 2019-07-24 19:29:00 149.86 cm [facility] [place] Weight 2019-07-24 19:29:00 [facility] [place] BMI Calculated 2019-07-24 19:29:00 Memori al [place] Systolic (mm Hg) 2019-05-21 19:25:00 Jose Francisco rial Raul Diastolic (mm Hg) 2019-05-21 19:25:00 Mem orial Raul Heart Rate 2019-05-21 19:25:00 [facility] Raul Respitory Rate 2019-05-21 19:25:00 Memori al [place] Height 2019-05-21 19:25:00 149.86 cm [facility] [place] Weight 2019-05-21 19:25:00 [facility] Raul BMI Calculated 2019-05-21 19:25:00 Memori al Raul Height 2019-03-21 19:45:00 147.32 cm [facility] [place] Weight 2019-03-21 19:45:00 [facility] [place] BMI Calculated 2019-03-21 19:45:00 Memori al [place] Respitory Rate 2019-03-21 19:45:00 Memori al [place] Heart Rate 2019-03-21 19:45:00 [facility] Raul Systolic (mm Hg) 2019-03-21 19:45:00 Jose Francisco rial [place] Diastolic (mm Hg) 2019-03-21 19:45:00 Mem orial Raul Height 2019-02-21 20:01:00 149.86 cm [facility] Raul Weight 2019-02-21 20:01:00 Nancy Carter BMI Calculated 2019-02-21 20:01:00 Carlotta shah [place] Respitory Rate 2019-02-21 20:01:00 Carlotta Samano Heart Rate 2019-02-21 20:01:00 Nancy Carter Systolic (mm Hg) 2019-02-21 20:01:00 Jose Francisco Cunhaann Diastolic (mm Hg) 2019-02-21 20:01:00 Mem orial Raul Procedures This patient has no known procedures. Encounters Start End Encounter Admission Attending Care Care Encounter Source Date/Time Date/Time Type Type Clinicians Facility Department ID 2020-06-28 2020-06-28 Emergency [facility] [id number] 11:51:00 15:02:00 Sariah Gutierrez [id number] [place] [id number] [place] [id number] 2020-05-25 2020-05-25 Outpatient GOSIA GarciaSCHANJEL MHMISCHER [id number] 13:45:00 23:59:59 Jeffrey 07 Hollis 2020-03-30 2020-03-30 Outpatient GOSIA GarciaSCHANJEL MHMISCHER [id number] 15:15:00 15:15:00 Jeffrey 05 Hollis 2020-03-24 2020-03-24 Outpatient GOSIA GarciaSCHAJNEL FLANNERYMISCHER [id number] 09:00:00 23:59:59 Jeffrey 06 Hollis 2020-02-19 2020-02-19 Emergency [facility] [id number] 14:18:56 16:04:00 Maria Luisa Gutierrez [id number] [place] [id number] [place] [id number] 2019-12-09 2019-12-10 Emergency [facility] [id number] 21:28:34 00:05:00 Jorge Gutierrez [id number] [place] [id number] [place] [id number] 2019-09-16 2019-09-16 Outpatient GOSIA GarciaSCHANJEL MHMISCHER [id number] 15:00:00 15:00:00 Jeffrey 04 Hollis 2019-07-24 2019-07-24 Outpatient Jose [facility] [id number] 14:15:00 23:59:59 Jeffrey 03 Hollis 2019-05-21 2019-05-21 Outpatient [id number] 14:30:00 23:59:59 Jeffrey Hollsi 2019-03-21 2019-03-21 Outpatient Jose [facility] [id number] 14:30:00 23:59:59 Jeffrey Hollis 2019-02-21 2019-02-21 Outpatient Jose [facility] [id number] 15:00:00 23:59:59 Jeffrey Hollis Results This patient has no known results.
--- OUTSIDE RECORDS SUMMARY | 2020-06-30 17:49 | XMS REPORT | Continuity of Care Document ---
:1940 Author Organization [facility] Care Team Providers Name Role Phone [facility] Unavailable Un available Problems Problem Status Onset [...] BID, # 180 tab, 3 Refill(s), Pharmacy: [facility]/pharmacy #[id number], 149.86, cm, 05/25/20 13:41:00 CDT, Height, 95.455, kg, 05/25/20 13:41:00 CDT, Weight primidone 50 mg 50 mg = 1 No Longer Misc her oral tablet tab, PO, Active 020 Neuro Bedtime, # 90 tab, 3 Refill(s), Pharmacy: [facility]/pharmacy #[id number], 149.86, cm, 03/24/20 9:12:00 CDT, Height, 90.909, kg, 03/24/20 9:12:00 CDT, Weight donepezil 10 mg 10 mg = 1 Active Mische r oral tablet tab, PO, 020 Neuro Daily, # 30 tab, 3 Refill(s), Pharmacy: [facility]/pharmacy #[id number], 149.86, cm, 03/24/20 9:12:00 CDT, Height, 90.909, kg, 03/24/20 9:12:00 CDT, Weight primidone 50 mg 50 mg = 1 No Longer Misc her oral tablet tab, PO, Active 020 Neuro Bedtime, X 30 day, # 30 tab, 3 Refill(s), Pharmacy: [facility]/pharmacy #[id number], 149.86, cm, 03/24/20 9:12:00 CDT, [...] Daily, # 30 tab, 3 Refill(s), Pharmacy: [facility]/pharmacy #[id number] levothyroxine 125 Active Mischer 125 [...] Comments S ource type Reported Avelox Assertion [place]^Mild Drug Active [facility] r allergy Neuro Immunizations [...] Comments Source Systolic (mm Hg) 183 05/25/2020 [facility] Christina ro Diastolic (mm Hg) 90 05/25/2020 [facility] u[facility] Heart Rate 71 05/25/2020 [facility] Respitory Rate 16 05/25/2020 [facility] Temperature Oral (F) 98.6 F 05/25/2020 [facility] Height 149.86 cm 05/25/2020 [facility] Weight 95.455 05/25/2020 [facility] BMI Calculated 42.5 05/25/2020 [facility] Systolic (mm Hg) 175 03/24/2020 [facility] Christina ro Diastolic (mm Hg) 84 03/24/2020 [facility] Heart Rate 73 03/24/2020 [facility] Height 149.86 cm 03/24/2020 [facility] Weight 90.909 03/24/2020 [facility] BMI Calculated 40.48 [facility]) 147 07/24/2019 [facility] Christina ro Diastolic (mm Hg) 126 07/24/2019 [facility] Heart Rate 60 07/24/2019 [facility] Respitory Rate 16 07/24/2019 [facility] Height 149.86 cm 07/24/2019 [facility] Weight 97.273 07/24/2019 [facility] BMI Calculated 43.31 07/24/2019 [facility] Systolic (mm Hg) 140 05/21/2019 [facility] Christina ro Diastolic (mm Hg) 73 05/21/2019 [facility] Heart Rate 61 05/21/2019 [facility] Respitory Rate 16 05/21/2019 [facility] Height 149.86 cm 05/21/2019 [facility] Weight 97.273 05/21/2019 [facility] BMI Calculated 43.31 05/21/2019 [facility] Height 147.32 cm 03/21/2019 [facility] Weight 98.182 03/21/2019 [facility] BMI Calculated 45.24 03/21/2019 [facility] Respitory Rate 16 03/21/2019 [facility] Heart Rate 78 03/21/2019 [facility] Systolic (mm Hg) 156 03/21/2019 [facility] Christina ro Diastolic (mm Hg) 83 03/21/2019 [facility] Height 149.86 cm 02/21/2019 [facility] Weight 90.909 02/21/2019 [facility] BMI Calculated 40.48 02/21/2019 [facility] Respitory Rate 16 02/21/2019 [facility] Heart Rate 63 02/21/2019 [facility] Systolic (mm Hg) 154 02/21/[facility] Diastolic (mm Hg) 85 02/21/2019 [facility] Encounters Location Location Encounter Encounter Reason Attending ADM DC Stat us Source Details Type Number For Provider Date Date Visit [facility] Outpatient [id number] Jeffrey 02/21 02/22 [facility] [place] Outpatient [id number] Jeffrey 03/21 Active [facility] Raul MNA Outpatient [id number] Jeffrey 03/21 03/22 [facility] [place] Outpatient [id number] Jeffrey 05/21 Active [facility] Raul MNA Outpatient [id number] Jeffrey 05/21 05/22 [facility] [place] /2018 Neuro [place] Outpatient [id number] Jeffrey 07/24 Active [facility] [place] [facility] Outpatient [id number] Jeffrey 07/24 07/25 [facility] [place] [facility] [place] Out[facility] [id number] Jeffrey 09/16 Active [facility] [place] [facility] Ambulatory [id number] Jeffrey 09/16 09/16 [facility] [place] [facility] [place] Out[facility] [id number] Jeffrey 03/24 [facility] [place] [facility]2019 Raul [facility] Outpatient [id number] [place] 03/24 03/25 [facility] Johnathan /2019 [facility] [place] Outpatient [id number] Jeffrey 03/30 [facility] [place] [facility]2019 Raul [facility] Ambulatory [id number] [place] 03/30 03/30 [facility] Johnathan /2019 [facility] [place] Outpatient [id number] Jeffrey 05/25 Active [facility] [place] [facility]2019 [place] [facility] Outpatient [id number] [place] 05/25 05/26 [facility] Johnathan /2019 Neuro [place] Outpatient [id number] Jeffrey 08/24 Active [facility] [place] /2019 Raul [...]
--- NOTE | 2020-06-30 20:11 | RAD REPORT ---
EXAM DESCRIPTION: RAD - Chest Single View - 06/30/2020 7:38 pm CLINICAL HISTORY: BLUNT CHEST TRAUMA, recent clavicle fracture from fall COMPARISON: Two chest May 06 TECHNIQUE: AP portable chest image was obtained 06/30/2020 7:38 pm . FINDINGS: Lung volumes are low. Chronic interstitial lung pattern is not clearly different. Atelecta sis or linear fibrotic change seen in each lower lung field. Heart size and vasculature within normal limits for shallow inspiration exam. No measurable pleural effusion and no pneumothorax. Mildly disp laced fracture of the lateral clavicle is present. No recent comparison. Available comparison at this facility pre dates the most recent fall. Left shoulder prosthesis in place with no acute finding davidson ntifiable. No acute aortic findings suspected. IMPRESSION: No acute cardiopulmonary finding. Mildly displaced lateral right clavicle fracture. No recent imaging available to establish any change in positioning of the clavicle fracture fragments.
--- NOTE | 2020-06-30 20:13 | RAD REPORT ---
EXAM DESCRIPTION: Scapula Right - 06/30/2020 7:38 pm CLINICAL HISTORY: PAIN COMPARISON: Chest Pa And Lat (2 Views) dated 05/06/2020 TECHNIQUE: A two-view AP and lateral scapula examination was performed. FINDINGS: No fracture of the scapula identified. No dislocation of the proximal humerus. Large sendy nal spur projects from the inferior articular margin of the humerus. Comminuted fracture of the lateral right clavicle is present. Small fracture fragments are present. T here is a mild displacement of the distal fracture fragment approximately 1/2 shaft width. AC joint s eparation is not excluded. IMPRESSION: No fracture of the scapula identified. Comminuted lateral right clavicle fracture as detailed.
--- NOTE | 2020-06-30 20:14 | RAD REPORT ---
EXAM DESCRIPTION: Ribs Right - 06/30/2020 7:38 pm CLINICAL HISTORY: PAIN COMPARISON: Chest Single View dated 06/30/2020 FINDINGS: No displaced rib fracture is evident. No non-displaced rib fracture suspected. No aggressive rib lesion. No underlying pneumothorax, effusion, infiltrate or pulmonary contusion. IMPRESSION: Negative right rib series.
--- NOTE | 2020-06-30 20:16 | RAD REPORT ---
EXAM DESCRIPTION: CT - Facial Bones W/ Mpr - 06/30/2020 7:43 pm CLINICAL HISTORY: Fall, facial trauma COMPARISON: None. TECHNIQUE: Axial 2 millimeter thick images of the facial bones were obtained with sagittal and coron al reconstruction imaging. All CT scans are performed using dose optimization technique as appropriate and may include automated exposure control or mA/KV adjustment according to patient size. FINDINGS: No fracture of the mandible. Patient has prominent degenerative change at the left temporo mandibular joint. No facial bone fractures are identifiable. Patient has numerous dental implants. Th chika create spray artifact and limit assessment of small fractures along the stem of each implant. Paranasal sinuses are clear. No mastoid air cell abnormality. Nasal septum is midline. No globe or or bital content abnormality. IMPRESSION: No facial bone fracture. No significant facial finding identified.
[2020-06-30] MEDS ORDERED: HYDROCODONE/APAP 5/325 MG TAB ONE (20:25)
--- NOTE | 2020-06-30 20:32 | EDPHYS ---
Physician Documentation [facility] Name: Radha Bentley Age: 79 yrs Sex: Female : 1940 Arrival Date: 06/30/2020 Time: 17:52 Bed 13 Private MD: ED Physician González Shah HPI: 06/30 19:31 This 79 yrs old Female presents to ER via Wheelchair with complaints of Fall rn Injury - Shoulder Pain. 19:31 Details of fall: The patient fell from an upright position, while walking. Onset: The rn symptoms/episode began/occurred yesterday. Associated injuries: The patient sustained injury to the head. Severity of symptoms: At their worst the symptoms were mild, in the emergency department the symptoms are unchanged. The patient has experienced similar episodes in the past. Reports seen at [place] on Sunday after fall from standing, accidental, broke right clavicle. Fell again Sunday, walking, tripped on edge of grass, fell again onto right side, hit face, no LOC, reports pain to right face, and right thoracic pain. NO difficulty or painful breathing. No chest pain. No hip or lower ext pain. Right clavicle about the same as it was before. . Historical: - Allergies: 18:14 Avelox; ll1 18:14 Band-aid adhesive; ll1 - PMHx: 18:14 Diverticulitis; Hypothyroidism; Pneumonia; Hypertension; Hyperlipidemia; Heart Murmur; ll1 - PSHx: 18:14 Cholecystectomy; Knee surgery; shoulder; breast reduction; abdominal surgery; ll1 - Immunization history:: Flu vaccine is up to date. - Social history:: Smoking status: Patient denies any tobacco usage or history of. - Immunization history: Last tetanus immunization: - up to date. - Family history:: not pertinent. - Hospitalizations: : No recent hospitalization is reported. ROS: 19:31 Constitutional: Negative for fever, chills, and weight loss, Eyes: Negative for injury, rn pain, redness, and discharge, ENT: + right facial pain Neck: Negative for injury, pain, and swelling, Cardiovascular: Negative for chest pain, palpitations, and edema, Respiratory: Negative for shortness of breath, cough, wheezing, and pleuritic chest pain, Abdomen/GI: Negative for abdominal pain, nausea, vomiting, diarrhea, and constipation, Back: + right posterior thoracic pain MS/Extremity: + right clavicle pain Skin: Negative for injury, rash, and discoloration, Neuro: Negative for headache, weakness, numbness, tingling, and seizure. Exam: 19:31 Constitutional: This is a well developed, well nourished patient who is awake, alert, rn and in no acute distress. Head/Face: + ecchymosis to right periorbital region and over right zygoma, teeth well aligned, no deformity, no tenderness of nose. Eyes: Pupils equal round and reactive to light, extra-ocular motions intact. Neck: Trachea midline, no masses palpated. Supple, full range of motion without nuchal rigidity, or vertebral point tenderness. Chest/axilla: Normal chest wall appearance and motion. Nontender with no deformity. No lesions are appreciated. Cardiovascular: Bradycardic, regular Respiratory: Speaking full unlabored sentences. No increased work of breathing, no retractions or nasal flaring. Abdomen/GI: soft, non-tender Back: No spinal tenderness. No costovertebral tenderness. Full range of motion. Mild tenderness right scapular region, no focal pain MS/ Extremity: Pulses equal, no cyanosis. Neuro: Awake and alert, GCS 15, oriented to person, place, time, and situation. Vital Signs: 18:10 BP 143 / 65; Pulse 55; Resp 18; Temp 98.3; Pulse Ox 97% ; Weight 95.25 kg; Height 4 ft. ll1 11 in. (149.86 cm); Pain 7/10; 20:00 BP 167 / 59; Pulse 61; Resp 16; Pulse Ox 97% ; rv 20:45 BP 145 / 66; Pulse 62; Resp 16; Temp 98; Pulse Ox 98% on R/A; rv 18:10 Body Mass Index 42.41 (95.25 kg, 149.86 cm) ll1 [place] Coma Score: 19:30 Eye Response: spontaneous(4). Verbal Response: oriented(5). Motor Response: obeys rv commands(6). Total: 15. Trauma Score (Adult): 19:30 Eye Response: spontaneous(1); Verbal Response: oriented(1); Motor Response: obeys rv commands(2); Systolic BP: > 89 mm Hg(4); Respiratory Rate: 10 to 29 per min(4); [place] Score: 15; Trauma Score: 12 MDM: 18:57 Patient medically screened. rn 20:30 Differential diagnosis: closed head injury, contusion, fracture, sprain, strain. Data rn reviewed: vital signs, nurses notes, radiologic studies, CT scan, plain films, and as a result, I will discharge patient. Counseling: I had a detailed discussion with the patient and/or guardian regarding: the historical points, exam findings, and any diagnostic results supporting the discharge/admit diagnosis, radiology results, the need for outpatient follow up, to return to the emergency department if symptoms worsen or persist or if there are any questions or concerns that arise at home. Response to treatment: the patient's symptoms have mildly improved after treatment, and as a result, I will discharge patient. Special discussion: Based on the patient's history, exam and DX evaluation, there is no indication for emergent intervention or inpatient TX. It is understood by the patient/guardian that if the SXs persist or worsen they need to return immediately for re-evaluation. I discussed with the patient/guardian in detail that at this point there is no indication for admission to the hospital. It is understood, however, that if the symptoms persist or worsen the patient needs to return immediately for re-evaluation. 06/30 19:14 Order name: CT Facial Bones W/O Con; Complete Time: 20:30 rn 06/30 19:14 Order name: XRAY Chest (1 view); Complete Time: 20:30 rn 06/30 19:14 Order name: XRAY Scapula Right; Complete Time: 20:30 rn 06/30 19:14 Order name: XRAY Ribs RIGHT; Complete Time: 20:30 rn Administered Medications: 20:30 Drug: HYDROcodone-acetaminophen 5 mg-325 mg 1 tabs Route: PO; rv 21:00 Follow up: Response: No adverse reaction; Marked relief of symptoms; Pain is decreased; rv RASS: Alert and Calm (0) Disposition: 06/30/20 20:31 Discharged to Home. Impression: Facial Contusion, Displaced fracture of lateral end of right clavicle. - Condition is Stable. - Discharge Instructions: Contusion, Clavicle Fracture, Facial or Scalp Contusion. - Medication Reconciliation Form, Thank You Letter, Antibiotic Education, Prescription Opioid Use form. - Follow up: Private Physician; When: As needed; Reason: Recheck today's complaints, Re-evaluation by your physician. - Problem is new. - Symptoms have improved. Signatures: Dispatcher [employer] EDMS González Shah MD MD rn Vicente, Ronaldo, RN RN Zach Faith RN RN ll1 Corrections: (The following items were deleted from the chart) 20: 20:31 06/30/2020 20:31 Discharged to Home. Impression: Facial Contusion. Condition is rn Stable. Forms are Medication Reconciliation Form, Thank You Letter, Antibiotic Education, Prescription Opioid Use. Follow up: Private Physician; When: As needed; Reason: Recheck today's complaints, Re-evaluation by your physician. Problem is new. Symptoms have improved. rn 21:00 20:31 06/30/2020 20:31 Discharged to Home. Impression: Facial Contusion; Displaced rv fracture of lateral end of right clavicle. Condition is Stable. Forms are Medication Reconciliation Form, Thank You Letter, Antibiotic Education, Prescription Opioid Use. Follow up: Private Physician; When: As needed; Reason: Recheck today's complaints, Re-evaluation by your physician. Problem is new. Symptoms have improved. rn
--- NOTE | 2020-06-30 20:32 | ER ---
Nurse's Notes [facility] Name: Radha Bentley Age: 79 yrs Sex: Female : 1940 Arrival Date: 06/30/2020 Time: 17:52 Bed 13 Private MD: Diagnosis: Facial Contusion;Displaced fracture of lateral end of right clavicle Presentation: 06/30 18:10 Chief complaint: Patient states: Fall on Sunday, broke her R clavicle. Fell again ll1 Sunday, hasn't been checked out for this fall. Back pain since 2nd fall. No blood thinners, no LOC. Coronavirus screen: Client denies travel out of the [place] in the last 14 days. At this time, the client does not indicate any symptoms associated with coronavirus-19. Ebola Screen: Patient denies travel to an Ebola-affected area in the 21 days before illness onset. Initial Sepsis Screen: Does the patient meet any 2 criteria? No. Patient's initial sepsis screen is negative. Risk Assessment: Do you want to hurt yourself or someone else? Patient reports no desire to harm self or others. Onset of symptoms was June 28, 2020. 18:10 Method Of Arrival: Wheelchair ll1 18:10 Acuity: VAIBHAV 3 ll1 19:30 Care prior to arrival: None. rv 19:30 Mechanism of Injury: Fall from standing position. Trauma event details: Injury occurred rv in the [facility], Injury occurred: at home. Injury occurred: June 29, 2020. 20:57 Initial Sepsis Screen: Does the patient have a suspected source of infection? No. rv Patient's initial sepsis screen is negative. Trauma Activation: Not Applicable Physician: ED Physician; Name: ; Notified At: ; Arrived At: Physician: General Surgeon; Name: ; Notified At: ; Arrived At: Physician: Radiology; Name: ; Notified At: ; Arrived At: Physician: Respiratory; Name: ; Notified At: ; Arrived At: Physician: Lab; Name: ; Notified At: ; Arrived At: Historical: - Allergies: 18:14 Avelox; ll1 18:14 Band-aid adhesive; ll1 - PMHx: 18:14 Diverticulitis; Hypothyroidism; Pneumonia; Hypertension; Hyperlipidemia; Heart Murmur; ll1 - PSHx: 18:14 Cholecystectomy; Knee surgery; shoulder; breast reduction; abdominal surgery; ll1 - Immunization history:: Flu vaccine is up to date. - Social history:: Smoking status: Patient denies any tobacco usage or history of. - Immunization history: Last tetanus immunization: - up to date. - Family history:: not pertinent. - Hospitalizations: : No recent hospitalization is reported. Screenin:30 Abuse screen: Denies threats or abuse. Denies injuries from another. Nutritional rv screening: No deficits noted. 19:30 Tuberculosis screening: No symptoms or risk factors identified. Fall Risk Fall in past rv 12 months (25 points). Secondary diagnosis (15 points) impaired mobility, No IV (0 pts). Ambulatory Aid- Crutches/Cane/Walker (15 pts). Gait- Impaired (20 pts.). Mental Status- Oriented to own ability (0 pts). Total [place] Fall Scale indicates High Risk Score (45 or more points). Fall prevention measures have been instituted. Side Rails Up X 2 Frequent Obs/Assessments Occuring As available patient and family educated on Fall Prevention Program and Strategies. Primary Survey: 19:30 NO uncontrolled hemorrhage observed. Breathing/Chest: Respiratory pattern: regular. rv Circulation: Skin color: pink. 19:30 Disability Alert. Exposure/Environment: There is no evidence of uncontrolled external rv bleeding. A warming method has been applied: A warm blanket has been provided to the patient. 20:30 Reassessment Breathing/Chest Respiratory pattern Regular Circulation Color [place] rv Disability Alert. Assessment: 19:30 General: Appears comfortable, Behavior is calm, cooperative. rv 19:30 Pain: Complains of pain in right clavicle Pain. Neuro: Level of Consciousness is awake, rv alert, obeys commands, Oriented to person, place, time, situation. Cardiovascular: Patient's skin is warm and dry. Respiratory: Airway is patent Respiratory effort is even, unlabored. Derm: Skin is intact. Musculoskeletal: Range of motion: limited in right shoulder. Vital Signs: 18:10 BP 143 / 65; Pulse 55; Resp 18; Temp 98.3; Pulse Ox 97% ; Weight 95.25 kg; Height 4 ft. ll1 11 in. (149.86 cm); Pain 7/10; 20:00 BP 167 / 59; Pulse 61; Resp 16; Pulse Ox 97% ; rv 20:45 BP 145 / 66; Pulse 62; Resp 16; Temp 98; Pulse Ox 98% on R/A; rv 18:10 Body Mass Index 42.41 (95.25 kg, 149.86 cm) ll1 [place] Coma Score: 19:30 Eye Response: spontaneous(4). Verbal Response: oriented(5). Motor Response: obeys rv commands(6). Total: 15. Trauma Score (Adult): 19:30 Eye Response: spontaneous(1); Verbal Response: oriented(1); Motor Response: obeys rv commands(2); Systolic BP: > 89 mm Hg(4); Respiratory Rate: 10 to 29 per min(4); [place] Score: 15; Trauma Score: 12 ED Course: 17:52 Patient arrived in ED. ds1 18:13 Triage completed. ll1 18:14 Arm band placed on. ll1 18:57 González Shah MD is Attending Physician. rn 19:30 Patient has correct armband on for positive identification. Pulse ox on. NIBP on. rv 19:30 Thermoregulation: warm blanket given to patient. rv 19:30 Patient maintains SpO2 saturation greater than 95% on room air. rv 19:38 XRAY Chest (1 view) In Process Unspecified. EDMS 19:38 XRAY Scapula Right In Process Unspecified. EDMS 19:38 XRAY Ribs RIGHT In Process Unspecified. EDMS 19:44 CT Facial Bones W/O Con In Process Unspecified. EDMS 20:54 Shree Alonzo, ALAN is Primary Nurse. rv 20:56 No provider procedures requiring assistance completed. Patient did not have IV access rv during this emergency room visit. Administered Medications: 20:30 Drug: HYDROcodone-acetaminophen 5 mg-325 mg 1 tabs Route: PO; rv 21:00 Follow up: Response: No adverse reaction; Marked relief of symptoms; Pain is decreased; rv RASS: Alert and Calm (0) Intake: 19:30 PO: 50ml; Total: 50ml. rv Output: 19:30 Urine: 0ml; Total: 0ml. rv Outcome: 20:31 Discharge ordered by . rn 20:57 Discharged to home via wheelchair, with family. rv 20:57 Condition: good 20:57 Discharge instructions given to patient, Instructed on discharge instructions, follow up and referral plans. Demonstrated understanding of instructions, follow-up care. 21:00 Patient's length of stay was not longer than 2 hours. rv 21:00 Patient left the ED. rv Signatures: Dispatcher [employer] EDMS Clara Carroll ds1 González Shah MD MD rn Vicente, Ronaldo RN RN Zach Faith RN RN ll1
[2020-06-30] MEDS ORDERED: ACETAMINOPHEN 160 MG/5 ML UCUP ONE (21:07)
[2020-06-30 21:11] VITALS: BP 145/66; TEMP 98; O2SAT 98
== END 2020-06-30 21:00 | disposition home or self-care (01) ==
LOC: ER 17:46
DX: S42.031A Displaced fracture of lateral end of right clavicle, initial encounter for closed fracture (principal); W01.0XXA Fall on same level from slipping, tripping and stumbling without subsequent striking against object, initial encounter; Y93.01 Activity, walking, marching and hiking; Y92.9 Unspecified place or not applicable; Z88.6 Allergy status to analgesic agent; Z88.8 Allergy status to other drugs, medicaments and biological substances; I10 Essential (primary) hypertension
CPT/HCPCS: 70486; 71045; 73010; 76377; 99284

== ENCOUNTER 2020-09-04 01:31 | Emergency (ER) | payer OTHER ==
--- OUTSIDE RECORDS SUMMARY | 2020-09-04 01:33 | XMS REPORT | Continuity of Care Document ---
:1940 Author Organization [employer] [facility] Care Team Providers Name Role Phone [employer] [facility] Unavailable Un available Problems Problem Status Onset Classification Date Comments Sourc e Date Reported Hypertensive Active Problem 08/26/2020 Mische r disorder, systemic N euro arterial (disorder) Hyperlipidemia Active Problem 08/26/2020 Misc her (disorder) Neuro Hypothyroidism Active Problem 08/26/2020 Misc her (disorder) Neuro Memory impairment Active Problem 08/26/2020 M ischer (finding) Neuro Morbid obesity Active Problem 08/26/2020 Misc her (disorder) Neuro Recurrent falls Active Problem 08/26/2020 Mis beverly (finding) Neuro Transient ischemic Active Problem 08/26/2020 [facility]ischer attack (disorder) Ne uro Tremor (finding) Active Problem 08/26/2020 Mi ro Neuro Medications Medication Details Route Status Patient Ordering Order Source Instructions Provider Date primidone 50 mg 50 mg = 1 Active Mische r oral tablet tab, PO, 020 Neuro Bedtime, # 30 tab, 2 Refill(s), other, Weight primidone 50 mg 50 mg = 1 Active Mische r oral tablet tab, PO, 020 Neuro BID, # 180 tab, 3 Refill(s), Pharmacy: [facility]/pharmacy #[id number], 149.86, cm, 05/25/20 13:41:00 CDT, Height, 95.455, kg, 05/25/20 13:41:00 CDT, Weight primidone 50 mg 50 mg = 1 No Longer Misc her oral tablet tab, PO, Active 020 Neuro Bedtime, # 90 tab, 3 Refill(s), Pharmacy: [facility]/pharmacy #[id number], 149.86, cm, 03/24/20 9:12:00 CDT, Height, 90.909, kg, 03/24/20 9:12:00 CDT, Weight donepezil 10 mg 10 mg = 1 Active Mische r oral tablet tab, PO, 020 Neuro Daily, # 30 tab, 3 Refill(s), Pharmacy: [facility]/pharmacy #[id number], 149.86, cm, 03/24/20 9:12:00 CDT, Height, 90.909, kg, 03/24/20 9:12:00 CDT, Weight primidone 50 mg 50 mg = 1 No Longer Misc her oral tablet tab, PO, Active 020 Neuro Bedtime, X 30 day, # 30 tab, 3 Refill(s), Pharmacy: [facility]/pharmacy #[id number], 149.86, cm, 03/24/20 9:12:00 CDT, [...] Daily, # 30 tab, 3 Refill(s), Pharmacy: [facility]/pharmacy #[id number] levothyroxine 125 Active Mischer 125 [...] Comments S ource type Reported Avelox Assertion [place]^Mild Drug Active Mische r allergy Neuro Immunizations [...] Comments Source Systolic (mm Hg) 183 [facility] Diastolic (mm Hg) 90 05[place]25[place] [facility] [place] 71 05/25/2020 [facility] [place] Respitory Rate 16 05/25/2020 [facility] Temperature Oral (F) 98.6 F 05/25/2020 [facility] Height 149.86 cm 05/25/2020 [facility] Weight 95.455 05/25/2020 [facility] BMI Calculated 42.5 05/25/2020 [facility] Systolic (mm Hg) 175 03/24/2020 [facility] [place] Diastolic (mm Hg) 84 03/24/2020 [facility] Heart Rate 73 03/24/2020 [facility] Height 149.86 cm 03/24/2020 [facility] Weight 90.909 03/24/2020 [facility] BMI Calculated 40.48 03/24/2020 [facility] Systolic (mm Hg) 147 07/24/2019 [facility] [place] ro Diastolic (mm Hg) 126 07/24/2019 [facility] Heart Rate 60 07/24/2019 [facility] Respitory Rate 16 07/24/2019 [facility] Height 149.86 cm 07/24/2019 [facility] Weight 97.273 07/24/2019 [facility] BMI Calculated 43.31 07/24/2019 [facility] Systolic (mm Hg) 140 05/21/2019 [facility] [place] ro Diastolic (mm Hg) 73 05/21/2019 [facility] [place] Heart Rate 61 05/21/2019 [facility] [place] Respitory Rate 16 05/21/2019 [facility] Height 149.86 cm 05/21/2019 [facility] Weight 97.273 05/21/2019 [facility] BMI Calculated 43.31 05/21/2019 [facility] Height 147.32 cm 03/21/2019 [facility] Weight 98.182 03/21/2019 [facility] BMI Calculated 45.24 03/21/2019 [facility] Respitory Rate 16 03/21/2019 [facility] Heart Rate 78 03/21/2019 [facility] Systolic (mm Hg) 156 03/21/2019 [facility] [place] ro Diastolic (mm Hg) 83 03/21/2019 [facility] [place] Height 149.86 cm 02/21/2019 [facility] Weight 90.909 02/21/2019 [facility] BMI Calculated 40.48 02/21/2019 [facility] Respitory Rate 16 02/21/2019 [facility] Heart Rate 63 02/21/2019 [facility] Systolic (mm Hg) 154 02/21/2019 [facility] [place] ro Diastolic (mm Hg) 85 02/21/2019 [facility] [place] Encounters Location Location Encounter Encounter Reason Attending ADM RI Stat Source Details Type Number For Provider Date Date Visit [facility] Outpatient [id number] [place] 02/21 02/22 [facility]2018 [facility] [place] Out[facility] [id number] Jeffrey 03/[address] [facility] Outpatient [id number] Jeffrey 03/21 03/22 [facility] [place] [facility] [id number] Jeffrey 05/21 [facility] [place] [facility] [id number] Jeffrey 05/21 05/22 [facility] [place] [facility] [id number] Jeffrey 07[facility]24 [facility] [id number] Jeffrey 07/24 07/25 [facility] [place] Outpatient [id number] Jeffrey 09/16 [facility] [place] [facility] [id number] Jeffrey 09/16 09/16 [facility] [place] Outpatient [id number] Jeffrey 03/24 [facility]2019 [place] [facility] Outpatient [id number] [place] 03/24 03/25 [facility] /2019 /2019 [facility] [place] Outpatient [id number] Jeffrey 03/30 [facility]2019 [place] [facility] Ambulatory [id number] [place] 03/30 03/30 [facility] /2019 [facility] [place] Outpatient [id number] Jeffrey 05/25 [facility] [place] [facility] Outpatient [id number] [place] 05/25 05/26 [facility] /2019 /2019 [facility] [place] Outpatient [id number] Jeffrey 08/24 [facility]2019 [place] [facility] Ambulatory [id number] [place] 08/24 08/24 [facility] /2019 Neuro [place] Procedures No Data Provided for This Section [...]
--- OUTSIDE RECORDS SUMMARY | 2020-09-04 01:33 | XMS REPORT | Continuity of Care Document ---
:1940 Author Organization [facility] t Address [address] [place] [address] Care Team Providers Name Role Phone Hollis Garcia Attending Clinician Angela ADAMS S Attending Clinician Yocasta MEMBERSH[employer] SALES ADVISOR G Attending Clinician Timothy WOLFE Attending Clinician Problems Condition Condition Condition Status Onset Resolution Last Treating Co mments Source Name Details Category Date Date Treatment Clinician Date Hypertensi Problem Active 2020-08-26 M emoria ve 22:42:00 l disorder, [place] systemic Hypertensi arterial ve (disorder) disorder, systemic arterial (disorder) Active Problem 08/26/2020 [facility] Hyperlipid Problem Active 2020-08-26 M emoria emia 22:42:00 l (disorder) Ajay n Hyperlipid emia (disorder) Active Problem 08/26/2020 [facility] Hypothyroi Problem Active 2020-08-26 M emoria dism 22:42:00 l (disorder) Ajay n Hypothyroi dism (disorder) Active Problem 08/26/2020 [facility] Memory Problem Active 2020-08-26 Memor ia impairment 22:42:00 l (finding) Memory Jesise nn impairment (finding) Active Problem 08/26/2020 [facility] Morbid Problem Active 2020-08-26 Memor ia obesity 22:42:00 l (disorder) Morbid Herm bernie obesity (disorder) Active Problem 08/26/2020 [facility] Recurrent Problem Active 2020-08-26 Me moria falls 22:42:00 l (finding) Raul Recurrent falls (finding) Active Problem 08/26/2020 [facility] Transient Problem Active 2020-08-26 Me moria ischemic 22:42:00 l attack [place] (disorder) Transient ischemic attack (disorder) Active Problem 08/26/2020 [facility] Tremor Problem Active 2020-08-26 Memor ia (finding) 22:42:00 l Tremor Raul (finding) Active Problem 08/26/2020 [facility] Allergies, Adverse Reactions, Alerts Allergy Allergy Status Severity Reaction(s) Onset Inactive Treating Comm ents Source Name Type Date Date Clinician Avelox Avelox Active RI^Mild Memoria lavelle Carter Social History Smoking Status Start Date Stop Date Source Social History 2020-05-25 18:44:53 2020-05-25 18:44:53 Nancy Carter Medications Ordered Filled Start Stop Current Ordering Indication Dosage Frequency Signature Comments Components Source Medication Medication Date Date Medication? Clinician (SIG) Name Name primidone Yes 50 mg = 1 Mem oria 50 mg oral 9-04 tab, PO, l tablet 22:46: Bedtime, # Jessie nn 00 30 tab, 2 Refill(s), other, Weight primidone Yes 50 mg = 1 Mem oria 50 mg oral 8-25 tab, PO, l tablet 19:03: BID, # 180 Jessie nn 00 tab, 3 Refill(s), Pharmacy: [id number], 149.86, cm, 05/25/20 13:41:00 CDT, Height, 95.455, kg, 05/25/20 13:41:00 CDT, Weight primidone 0 No 50 mg = 1 Mem oria 50 mg oral 6-25 tab, PO, l tablet 13:48: Bedtime, # Jessie nn 00 90 tab, 3 Refill(s), Pharmacy: [facility] #[id number], 149.86, cm, 03/24/20 9:12:00 CDT, Height, 90.909, kg, 03/24/20 9:12:00 CDT, Weight donepezil Yes 10 mg = 1 Mem oria 10 mg oral 6-24 tab, PO, l tablet 14:32: Daily, # Raul 00 30 tab, 3 Refill(s), Pharmacy: [facility] #[id number], 149.86, cm, 03/24/20 9:12:00 CDT, Height, 90.909, kg, 03/24/20 9:12:00 CDT, Weight primidone 2019- No 50 mg = 1 Mem oria 50 mg oral 6-24 tab, PO, l tablet 14:32: Bedtime, X Jessie nn 00 30 day, # 30 tab, 3 Refill(s), Pharmacy: [facility] #[id number], 149.86, cm, 03/24/20 9:12:00 CDT, Height, 90.909, kg, 03/24/20 9:12:00 CDT, Weight topiramate 2018- No 25 mg = 1 Me moria 25 MG Oral 0-24 tab, PO, l Tablet 20:22: Bedtime, # Jessie nn [Topamax] 00 30 tab, 3 Refill(s) Walker 2018-0 Yes 1 ea, Memoria 7-26 MISC, l 21:45: Daily, # 1 [place] 00 ea, 0 Refill(s) Adult 2019-0 Yes 81 mg = 1 Memoria Aspirin 81 6-21 tab, CHEW, l mg oral 20:18: Daily, # Ajay n tablet, 00 30 tab, 3 chewable Refill(s), Pharmacy: [facility] #[id number] levothyroxi 2018-0 Yes 125 Memori a ne 125 mcg 5-24 microgram l (0.125 mg) 20:29: = 1 tab, Her ivory oral tablet 00 PO, Daily, # 30 tab, 0 Refill(s) gabapentin 2019-0 Yes 300 mg = 1 M emoria 300 MG Oral 5-24 cap, PO, l Capsule 20:29: BID, # 90 Jessie nn 00 cap, 1 Refill(s) metoprolol 2019-0 Yes 50 mg = 1 Me moria 50 mg oral 5-24 tab, PO, l tablet, 20:06: Daily, # Ajay n extended 00 30 tab, 0 release Refill(s) Escitalopra 2019-0 Yes 20 mg = 1 M emoria m 20 MG 5-24 tab, PO, l Oral Tablet 20:06: Daily, # [place] [Lexapro] 00 30 tab, 0 Refill(s) omeprazole 2019- Yes 40 mg = 1 Me moria 40 mg oral 5-24 cap, PO, l delayed 20:06: Daily, # Ajay n release 00 30 cap, 0 capsule Refill(s) amLODIPine 2019- Yes 5 mg = 1 Mem oria 5 mg oral 5-24 tab, PO, l tablet 20:06: Daily, # [place] 00 90 tab, 0 Refill(s) Atropine 2019-0 Yes 2 tab, PO, Mem oria Sulfate 5-24 PRN, PRN l 0.025 MG / 20:06: for loose [place] Diphenoxyla 00 stool, 0 te Refill(s) Hydrochlori de 2.5 MG Oral Tablet [Lomotil] lovastatin Yes 20 mg = 1 Me moria [...] tab, PO, l tablet 20:06: Daily, # [place] 00 30 tab, 0 Refill(s) donepezil 2018- Yes 10 mg = 1 Mem oria 10 mg oral 5-24 tab, PO, l tablet 20:06: Daily, # [place] 00 30 tab, 0 Refill(s) ProAir HFA [...] 18:41:00 Chao Carter Heart Rate 2020-05-25 18:41:00 [facility] Raul Respitory Rate 2020-05-25 18:41:00 Carlotta al Raul Temperature Oral (F) 2020-05-25 18:41:00 98.6 F [facility] [place] Height 2020-05-25 18:41:00 149.86 cm [facility] [place] Weight 2020-05-25 18:41:00 [facility] [place] BMI Calculated 2020-05-25 18:41:00 Memori al Raul Systolic (mm Hg) 2020-03-24 14:12:00 Jose Francisco rial Raul Diastolic (mm Hg) 2020-03-24 14:12:00 Mem orial Raul Heart Rate 2020-03-24 14:12:00 [facility] [place] Height 2020-03-24 14:12:00 149.86 cm [facility] [place] Weight 2020-03-24 14:12:00 [facility] Raul BMI Calculated 2020-03-24 14:12:00 Memori al Raul Systolic (mm Hg) 2019-07-24 19:29:00 Jose Francisco rial Raul Diastolic (mm Hg) 2019-07-24 19:29:00 Mem orial [place] Heart Rate 2019-07-24 19:29:00 [facility] [place] Respitory Rate 2019-07-24 19:29:00 Memori al Raul Height 2019-07-24 19:29:00 149.86 cm [facility] Raul Weight 2019-07-24 19:29:00 [facility] [place] BMI Calculated 2019-07-24 19:29:00 Memori al [place] Systolic (mm Hg) 2019-05-21 19:25:00 Jose Francisco rial Raul Diastolic (mm Hg) 2019-05-21 19:25:00 Mem orial [place] Heart Rate 2019-05-21 19:25:00 [facility] Raul Respitory Rate 2019-05-21 19:25:00 Memori al Raul Height 2019-05-21 19:25:00 149.86 cm [facility] Raul Weight 2019-05-21 19:25:00 [facility] [place] BMI Calculated 2019-05-21 19:25:00 Mem[facility] [place] Height 2019-03-21 19:45:00 147.32 cm [facility] [place] Weight 2019-03-21 19:45:00 [facility] [place] BMI Calculated 2019-03-21 19:45:00 Memori al Raul Respitory Rate 2019-03-21 19:45:00 Memori al Raul Heart Rate 2019-03-21 19:45:00 [facility] [place] Systolic (mm Hg) 2019-03-21 19:45:00 Jose Francisco rial [place] Diastolic (mm Hg) 2019-03-21 19:45:00 Mem orial [place] Height 2019-02-21 20:01:00 149.86 cm Nancy Carter Weight 2019-02-21 20:01:00 [facility] [place] BMI Calculated 2019-02-21 20:01:00 Carlotta al [place] Respitory Rate 2019-02-21 20:01:00 Memdano al [place] Heart Rate 2019-02-21 20:01:00 [facility] [place] Systolic (mm Hg) 2019-02-21 20:01:00 Jose Francisco rial Raul Diastolic (mm Hg) 2019-02-21 20:01:00 Mem orial [place] Procedures This patient has no known procedures. Encounters Start End Encounter Admission Attending Care Care Encounter Source Date/Time Date/Time Type Type Clinicians Facility Department ID 2020-08-24 2020-08-24 Outpatient GOSIA GarciaSCHER MHMISCHER [id number] 13:15:00 13:15:00 Jeffrey 08 Hollis 2020-06-28 2020-06-28 Emergency [facility] [id number] 11:51:00 15:02:00 Sariah Gutierrez [id number] [place] [id number] [place] [address] [id number] 2020-05-25 2020-05-25 Outpatient GOSIA GarciaSCHER PRUDENCIOMISCHER [id number] 13:45:00 23:59:59 Jeffrey 07 Hollis 2020-03-30 2020-03-30 Outpatient GOSIA GarciaSCHER PRUDENCIOMISCHER [id number] 15:15:00 15:15:00 Jeffrey 05 Hollis 2020-03-24 2020-03-24 Outpatient PRUDENCIO GarciaMISCHER MHMISCHER [id number] 09:00:00 23:59:59 Jeffrey 06 [facility] 2020-02-19 2020-02-[id number] 14:18:56 16:04:00 Maria Luisa Gutierrez [id number] [place] [id number] [place] [address] [id number] 2019-12-09 2019-12-10 [facility] [id number] 21:28:34 00:05:00 Jorge Gutierrez [id number] [place] [id number] [place] [id number] 2019-09-16 2019-09-16 Outpatient PRUDENCIO GarciaMISCHER MHMISCHER [id number] 15:00:00 15:00:00 Jeffrey 04 Hollis 2019-07-24 2019-07-24 Outpatient Jose MISCHER MISCHER [id number] 14:15:00 23:59:59 Jeffrey 03 Hollis 2019-05-21 2019-05-21 Outpatient Jose MISCHER MHMISCHER [id number] 14:30:00 23:59:59 Jeffrey 02 Hollis 2019-03-21 2019-03-21 Outpatient PRUDENCIO GarciaMISCHER MHMISCHER [id number] 14:30:00 23:59:59 Jeffrey Hollis 2019-02-21 2019-02-21 Outpatient Jose MISCHER MISCHER [id number] 15:00:00 23:59:59 Jeffrey 00 Hollis Results This patient has no known results.
--- OUTSIDE RECORDS SUMMARY | 2020-09-04 01:33 | XMS REPORT | Summary of Care ---
:1940 Author Organization [facility] Address [address] [place] [address]- Encounter HQ Carrollntr_alialma delia(FIN) [id number] Date(s): 08/24/20 - 08/24/20 [facility] [address] [place], [place] [address]- [phone] Attending Physician: Jeffrey Garcia MD Referring Physician: Villa Mann MD Vital Signs No data available for this section Problem List Condition Effective Dates Status Health Status Informant HTN - Hypertension(Confirmed) Active Hyperlipidemia(Confirmed) Active Hypothyroidism(Confirmed) Active Memory loss(Confirmed) Active Morbid obesity(Confirmed) Active Multiple falls(Confirmed) Active Brain TIA(Confirmed) Active Tremor(Confirmed) Active Allergies, Adverse Reactions, Alerts Substance Reaction Severity Status Avelox IN^Mild Active Medications primidone 50 mg oral tablet 50 mg = 1 tab, PO, Bedtime, # 30 tab, 2 Refill(s), other, Weight Start Date: 06/04/20 Stop Date: 09/02/20 Status: Ordered Results No data available for [...]
[2020-09-04] MEDS ORDERED: HYDROCODONE/APAP 7.5/325 MG TAB ONE (03:29)
--- NOTE | 2020-09-04 04:51 | EDPHYS ---
Physician Documentation [facility] Name: Radha Bentley Age: 79 yrs Sex: Female : 1940 Arrival Date: 09/04/2020 Time: 01:32 Bed 2 Private MD: ED Physician Mars Hyatt HPI: 09/04 02:08 This 79 yrs old Female presents to ER via Ambulatory with complaints of Hand pkl Injury, Hand Pain. 02:08 The patient or guardian complains of injury, pain, that is acute. The complaints affect pkl the right wrist and forearm. Context: resulted from a fall, from a standing position. Onset: The symptoms/episode began/occurred today. Historical: - Allergies: 01:46 Avelox; sg 01:46 Band-aid adhesive; sg - Home Meds: 01:56 amlodipine 5 mg tab once daily [Active]; amlodipine 5 mg tab 1 tab once daily [Active]; lp1 aspirin 81 mg Oral chew 1 tab once daily [Active]; bupropion HCl 150 mg Oral TbER 2 times per day [Active]; donepezil 10 mg Oral tab once daily [Active]; escitalopram oxalate 20 mg Oral tab twice a day [Active]; gabapentin 300 mg Oral cap twice a day [Active]; levothyroxine 125 mcg tab once daily [Active]; lovastatin 20 mg Oral tab 1 tab once daily [Active]; metoprolol succinate 50 mg Oral Tb24 once daily [Active]; misoprostol 200 mcg Oral tab once a day [Active]; omeprazole 40 mg Oral cpDR once daily [Active]; potassium chloride 10 mEq Oral TbER once daily [Active]; ropinirole 2 mg Oral tab twice a day [Active]; - PMHx: 01:46 Diverticulitis; Heart Murmur; Hyperlipidemia; Hypertension; Hypothyroidism; Pneumonia; sg - PSHx: 01:46 Cholecystectomy; Knee surgery; shoulder; breast reduction; abdominal surgery; sg - Immunization history:: Adult Immunizations up to date. - Social history:: Smoking status: Patient denies any tobacco usage or history of. ROS: 02:08 Eyes: Negative for injury, pain, redness, and discharge, ENT: Negative for injury, pkl pain, and discharge, Neck: Negative for injury, pain, and swelling, Cardiovascular: Negative for chest pain, palpitations, and edema, Respiratory: Negative for shortness of breath, cough, wheezing, and pleuritic chest pain, Abdomen/GI: Negative for abdominal pain, nausea, vomiting, diarrhea, and constipation, Back: Negative for injury and pain, : Negative for injury, bleeding, discharge, and swelling, Skin: Negative for injury, rash, and discoloration, Neuro: Negative for headache, weakness, numbness, tingling, and seizure. 02:08 MS/extremity: Positive for injury or acute deformity, pain, of the right and forearm. Exam: 02:08 Head/Face: Normocephalic, atraumatic. Eyes: Pupils equal round and reactive to light, pkl extra-ocular motions intact. Lids and lashes normal. Conjunctiva and sclera are non-icteric and not injected. Cornea within normal limits. Periorbital areas with no swelling, redness, or edema. ENT: Nares patent. No nasal discharge, no septal abnormalities noted. Tympanic membranes are normal and external auditory canals are clear. Oropharynx with no redness, swelling, or masses, exudates, or evidence of obstruction, uvula midline. Mucous membranes moist. Neck: Trachea midline, no thyromegaly or masses palpated, and no cervical lymphadenopathy. Supple, full range of motion without nuchal rigidity, or vertebral point tenderness. No Meningismus. Chest/axilla: Normal chest wall appearance and motion. Nontender with no deformity. No lesions are appreciated. Cardiovascular: Regular rate and rhythm with a normal S1 and S2. No gallops, murmurs, or rubs. Normal PMI, no JVD. No pulse deficits. Respiratory: Lungs have equal breath sounds bilaterally, clear to auscultation and percussion. No rales, rhonchi or wheezes noted. No increased work of breathing, no retractions or nasal flaring. Abdomen/GI: Soft, non-tender, with normal bowel sounds. No distension or tympany. No guarding or rebound. No evidence of tenderness throughout. Back: No spinal tenderness. No costovertebral tenderness. Full range of motion. Skin: Warm, dry with normal turgor. Normal color with no rashes, no lesions, and no evidence of cellulitis. Neuro: Awake and alert, GCS 15, oriented to person, place, time, and situation. Cranial nerves II-XII grossly intact. Motor strength 5/5 in all extremities. Sensory grossly intact. Cerebellar exam normal. Normal gait. 02:08 Musculoskeletal/extremity: Extremities: grossly normal except: noted in the right and forearm: pain, tenderness. Vital Signs: 01:53 BP 172 / 110; Pulse 72; Resp 18; Temp 98.2(TE); Pulse Ox 95% on R/A; Weight 90.72 kg lp1 (R); Height 4 ft. 11 in. (149.86 cm); Pain 8/10; 03:00 BP 193 / 90; Pulse 69; Resp 18; Pulse Ox 96% on R/A; lp1 04:30 BP 195 / 98; Pulse 74; Resp 18; Pulse Ox 95% on R/A; lp1 01:53 Body Mass Index 40.39 (90.72 kg, 149.86 cm) lp1 Procedures: 04:48 Splinting: Splint applied to right wrist using sling, sugar tong splint. applied by pk myself. tech. Examined by me, post splint application: neurovascular intact, 2+ distal pulses palpable, brisk capillary refill noted, Patient tolerated well. MDM: 02:00 Patient medically screened. pkl 04:48 Data reviewed: vital signs, nurses notes, radiologic studies, plain films. pkl 09/04 02:07 Order name: Wrist Right 3 View XRAY pkl 09/04 02:07 Order name: Forearm Right XRAY pk Administered Medications: 03:24 Drug: [place] (7.5 mg-325 mg) 1 tabs {Note: RASS 0.} Route: PO; rv 05:08 Follow up: Response: No adverse reaction; Marked relief of symptoms; Pain is decreased; rv RASS: Alert and Calm (0) Disposition: 09/04/20 04:50 Discharged to Home. Impression: Fracture right wrist. - Condition is Stable. - Prescriptions for Ultram 50 mg Oral Tablet - take 1 tablet by ORAL route every 8 hours As needed; 20 tablet. - Medication Reconciliation Form, Thank You Letter, Antibiotic Education, Prescription Opioid Use form. - Follow up: Gabo Richards MD; When: 2 - 3 days; Reason: Re-evaluation by your physician. Signatures: Dispatcher [employer] EDMS Gabo Mike, RN RN sg Mars Hyatt MD MD pkNohemi Hassan RN RN lp1 Shree Alonzo RN RN rv Corrections: (The following items were deleted from the chart) 05:10 04:50 09/04/2020 04:50 Discharged to Home. Impression: Fracture right wrist. Condition rv is Stable. Forms are Medication Reconciliation Form, Thank You Letter, Antibiotic Education, Prescription Opioid Use. Follow up: Gabo Richards; When: 2 - 3 days; Reason: Re-evaluation by your physician. pkl
--- NOTE | 2020-09-04 04:51 | ER ---
Nurse's Notes [facility] Name: Radha Bentley Age: 79 yrs Sex: Female : 1940 Arrival Date: 09/04/2020 Time: 01:32 Bed 2 Private MD: Diagnosis: Fracture right wrist Presentation: 09/04 01:46 Chief complaint: Patient states: I fell from a standing position, caught myself during sg the fall using my right arm and right hand. no having pain in my right hand, right wrist, and right arm. pt states has had no LOC, no head injury no other complaints at this time. 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 Coronavirus screen: Client denies travel out of the [place] in the last 14 days. At this time, the client does not indicate any symptoms associated with coronavirus-19. Ebola Screen: Patient negative for fever greater than or equal to 101.5 degrees Fahrenheit, and additional compatible Ebola Virus Disease symptoms Patient denies exposure to infectious person. Patient denies travel to an Ebola-affected area in the 21 days before illness onset. No symptoms or risks identified at this time. Initial Sepsis Screen: Does the patient meet any 2 criteria? No. Patient's initial sepsis screen is negative. Does the patient have a suspected source of infection? No. Patient's initial sepsis screen is negative. Risk Assessment: Do you want to hurt yourself or someone else? Patient reports no desire to harm self or others. Onset of symptoms was September 04, 2020. Care prior to arrival: None. Mechanism of Injury: Fall from standing position. Transition of care: patient was not received from another setting of care. 01:46 Acuity: VAIBHAV 4 sg 01:46 Method Of Arrival: Ambulatory sg Historical: - Allergies: 01:46 Avelox; sg 01:46 Band-aid adhesive; sg - Home Meds: 01:56 amlodipine 5 mg tab once daily [Active]; amlodipine 5 mg tab 1 tab once daily [Active]; lp1 aspirin 81 mg Oral chew 1 tab once daily [Active]; bupropion HCl 150 mg Oral TbER 2 times per day [Active]; donepezil 10 mg Oral tab once daily [Active]; escitalopram oxalate 20 mg Oral tab twice a day [Active]; gabapentin 300 mg Oral cap twice a day [Active]; levothyroxine 125 mcg tab once daily [Active]; lovastatin 20 mg Oral tab 1 tab once daily [Active]; metoprolol succinate 50 mg Oral Tb24 once daily [Active]; misoprostol 200 mcg Oral tab once a day [Active]; omeprazole 40 mg Oral cpDR once daily [Active]; potassium chloride 10 mEq Oral TbER once daily [Active]; ropinirole 2 mg Oral tab twice a day [Active]; - PMHx: 01:46 Diverticulitis; Heart Murmur; Hyperlipidemia; Hypertension; Hypothyroidism; Pneumonia; sg - PSHx: 01:46 Cholecystectomy; Knee surgery; shoulder; breast reduction; abdominal surgery; sg - Immunization history:: Adult Immunizations up to date. - Social history:: Smoking status: Patient denies any tobacco usage or history of. Screenin:53 Abuse screen: Denies threats or abuse. Denies injuries from another. Nutritional lp1 screening: No deficits noted. Tuberculosis screening: No symptoms or risk factors identified. Fall Risk Total Little Fall Scale indicates High Risk Score (45 or more points). Fall prevention measures have been instituted. Family Present and informed to notify staff if the need to leave the bedside As available patient and family educated on Fall Prevention Program and Strategies. Assessment: 01:51 General: Appears in no apparent distress. Behavior is calm, cooperative. Pain: lp1 Complains of pain in lateral aspect of right hand, dorsum of right hand and dorsal aspect of right wrist Pain radiates to dorsal aspect of right forearm Pain currently is 8 out of 10 on a pain scale. Quality of pain is described as aching. Neuro: Level of Consciousness is awake, alert, obeys commands, Oriented to person, place, situation. Cardiovascular: Patient's skin is warm and dry. Respiratory: Respiratory effort is even, unlabored. GI: Abdomen is obese. : No signs and/or symptoms were reported regarding the genitourinary system. EENT: No signs and/or symptoms were reported regarding the EENT system. Derm: Skin is intact, Skin is dry, Skin is normal, Bruising that is dark purple, on lateral aspect of right hand. Musculoskeletal: Circulation, motion, and sensation intact. Swelling present in lateral aspect of right hand. 03:30 Reassessment: Patient appears in no apparent distress at this time. Patient is alert, lp1 oriented x 3, equal unlabored respirations, skin warm/dry/pink. Aware of waiting for imaging results. Vital Signs: 01:53 BP 172 / 110; Pulse 72; Resp 18; Temp 98.2(TE); Pulse Ox 95% on R/A; Weight 90.72 kg lp1 (R); Height 4 ft. 11 in. (149.86 cm); Pain 8/10; 03:00 BP 193 / 90; Pulse 69; Resp 18; Pulse Ox 96% on R/A; lp1 04:30 BP 195 / 98; Pulse 74; Resp 18; Pulse Ox 95% on R/A; lp1 01:53 Body Mass Index 40.39 (90.72 kg, 149.86 cm) lp1 ED Course: 01:32 Patient arrived in ED. cl3 01:48 Triage completed. sg 01:48 Arm band placed on. sg 01:50 Nohemi Weston, RN is Primary Nurse. lp1 01:54 Patient has correct armband on for positive identification. lp1 01:57 No provider procedures requiring assistance completed. lp1 01:57 Patient did not have IV access during this emergency room visit. lp1 02:00 Mars Hyatt MD is Attending Physician. pkl 02:46 Wrist Right 3 View XRAY In Process Unspecified. EDMS 02:46 Forearm Right XRAY In Process Unspecified. EDMS 04:49 Gabo Richards MD is Referral Physician. pkl 04:59 Orthoglass splint: Sugar tong splint applied on right arm. Sling applied to right arm. oe 05:09 No provider procedures requiring assistance completed. rv Administered Medications: 03:24 Drug: [place] (7.5 mg-325 mg) 1 tabs {Note: RASS 0.} Route: PO; rv 05:08 Follow up: Response: No adverse reaction; Marked relief of symptoms; Pain is decreased; rv RASS: Alert and Calm (0) Outcome: 04:50 Discharge ordered by . pkl 05:09 Discharged to home via wheelchair, with family. rv 05:09 Condition: good 05:09 Discharge instructions given to patient, Instructed on discharge instructions, follow up and referral plans. medication usage, Demonstrated understanding of instructions, follow-up care, medications, splint care, Prescriptions given X 1. 05:10 Patient left the ED. rv Signatures: Dispatcher [employer]FORMAN[employer]ING Gabo Madrigal, RN RN sg Mars Hyatt MD MD pkl Nohemi Weston RN RN lp1 Candelario Holt Ronaldo, RN RN rv Marleen Hatfield cl3
--- NOTE | 2020-09-04 08:48 | RAD REPORT ---
EXAM DESCRIPTION: RAD - Forearm Right - 09/04/2020 2:46 am CLINICAL HISTORY: The patient is 79 years old and is Female; fall;Pain TECHNIQUE: Frontal and lateral views of the right forearm. COMPARISON: No relevant prior studies available. FINDINGS: BONES/JOINTS: Unremarkable. No acute fracture. No dislocation. SOFT TISSUES: Soft tissue swelling of the distal forearm is present. IMPRESSION: Soft tissue swelling of the distal forearm is present. No underlying acute bony abnorm ality. Electronically signed by: Karli Rodriguez MD 09/04/2020 4:55 AM SOLID PROPELLANT PROCESSOR Due to temporary technical issues with the PACS/Fluency reporting system, reports are being signed by the in house radiologists without review as a courtesy to insure prompt reporting. The interpreting radiologist is fully responsible for the content of the report.
--- NOTE | 2020-09-04 08:49 | RAD REPORT ---
EXAM DESCRIPTION: RAD - Wrist Right 3 View - 09/04/2020 2:46 am CLINICAL HISTORY: The patient is 79 years old and is Female; fall;Pain Wrist Right 3 View TECHNIQUE: Frontal, lateral and oblique views of the right wrist. COMPARISON: No relevant prior studies available. FINDINGS: BONES/JOINTS: The bones are osteopenic. Degenerative change of the bones of the hand a re noted. Subtle fracture of the scaphoid neck is suggested. No dislocation. SOFT TISSUES: Mild soft tissue swelling is present. No radiopaque foreign body. IMPRESSION: Mild soft tissue swelling is suggested scaphoid neck fracture. Electronically signed by: Karli Rodriguez MD 09/04/2020 4:54 AM BUILDING CUSTODIAL SUPERVISOR Due to temporary technical issues with the PACS/Fluency reporting system, reports are being signed by the in house radiologists without review as a courtesy to insure prompt reporting. The interpreting radiologist is fully responsible for the content of the report.
[2020-09-09 00:53] VITALS: TEMP 98.2
[2020-09-09 00:56] VITALS: BP 195/98; O2SAT 95
== END 2020-09-04 05:10 | disposition home or self-care (01) ==
LOC: ER 01:31
PROC: 2W3CX1Z Immobilization of Right Lower Arm using Splint (ICD-10-PCS; principal; 2020-09-04)
DX: S62.001A Unspecified fracture of navicular [scaphoid] bone of right wrist, initial encounter for closed fracture (principal); W19.XXXA Unspecified fall, initial encounter; Y93.9 Activity, unspecified; Y92.9 Unspecified place or not applicable; Z88.6 Allergy status to analgesic agent; Z79.82 Long term (current) use of aspirin; Z91.048 Other nonmedicinal substance allergy status; I10 Essential (primary) hypertension; E78.5 Hyperlipidemia, unspecified; E03.9 Hypothyroidism, unspecified
CPT/HCPCS: 99284

== ENCOUNTER 2020-09-04 16:13 | Emergency (ER) | payer OTHER ==
--- OUTSIDE RECORDS SUMMARY | 2020-09-04 16:15 | XMS REPORT | Continuity of Care Document ---
:1940 Author Organization [employer] Care Team Providers Name Role Phone [employer] Unavailable Un available Problems Problem Status Onset [...] BID, # 180 tab, 3 Refill(s), Pharmacy: [facility]/pharmacy #[id number], 149.86, cm, 05/25/20 13:41:00 CDT, Height, 95.455, kg, 05/25/20 13:41:00 CDT, Weight primidone 50 mg 50 mg = 1 No Longer Misc her oral tablet tab, PO, Active 020 Neuro Bedtime, # 90 tab, 3 Refill(s), Pharmacy: [facility]/pharmacy #[id number], 149.86, cm, 03/24/20 9:12:00 CDT, Height, 90.909, kg, 03/24/20 9:12:00 CDT, Weight donepezil 10 mg 10 mg = 1 Active Mische r oral tablet tab, PO, 020 Neuro Daily, # 30 tab, 3 Refill(s), Pharmacy: [facility]/pharmacy #[id number], 149.86, cm, 03/24/20 9:12:00 CDT, Height, 90.909, kg, 03/24/20 9:12:00 CDT, Weight primidone 50 mg 50 mg = 1 No Longer Misc her oral tablet tab, PO, Active 020 Neuro Bedtime, X 30 day, # 30 tab, 3 Refill(s), Pharmacy: [facility]/pharmacy #[id number], 149.86, cm, 03/24/20 9:12:00 CDT, [...] Daily, # 30 tab, 3 Refill(s), Pharmacy: [facility]/pharmacy #[id number] levothyroxine 125 Active Mischer 125 [...] Comments S ource type Reported Avelox Assertion DC^Mild Drug Active Mische r allergy Neuro Immunizations [...] Comments Source Systolic (mm Hg) 183 05/25/2020 [facility] Diastolic (mm Hg) 90 05/25/2020 [facility] Heart Rate 71 05/25/2020 [facility] Respitory Rate 16 05/25/2020 [facility] Temperature Oral (F) 98.6 F 05/25/2020 [facility] Height 149.86 cm 05/25/2020 [facility] Weight 95.455 05/25/2020 [facility] BMI Calculated 42.5 05/25/2020 [facility] Systolic (mm Hg) 175 03/24/2020 [facility] Christina ro Diastolic (mm Hg) 84 03/24/2020 [facility] Heart Rate 73 03/24/2020 [facility] Height 149.86 cm 03/24/2020 [facility] Weight 90.909 03/24/2020 [facility] BMI Calculated 40.48 03/24/2020 [facility] Systolic (mm Hg) 147 07/24/2019 [facility] Christina ro Diastolic (mm Hg) 126 07/24/2019 [facility] Heart Rate 60 07/24/2019 [facility] Respitory Rate 16 07/24/2019 [facility] Height 149.86 cm 07/24/2019 [facility] Weight 97.273 07/24/2019 [facility] BMI Calculated 43.31 07/24/2019 [facility] Systolic (mm Hg) 140 05/21/2019 [facility] Christina ro Diastolic (mm Hg) 73 05/21/2019 [facility] Heart Rate 61 05/21/2019 [facility] Respitory Rate 16 05/21/2019 [facility] Height 149.86 cm 05/21/2019 [facility] Weight 97.273 05/21/2019 [facility] BMI Calculated 43.31 05/21/2019 [facility] Height 147.32 cm 03/21/2019 [facility] Weight 98.182 03/21/2019 [facility] BMI Calculated 45.24 03/21/2019 [facility] Respitory Rate 16 03/21/2019 [facility] Heart Rate 78 03/21/2019 [facility] Systolic (mm Hg) 156 03/21/2019 [facility] Christina ro Diastolic (mm Hg) 83 03/21/2019 [facility] Height 149.86 cm 02/21/2019 [facility] Weight 90.909 02/21/2019 [facility] BMI Calculated 40.48 02/21/2019 [facility] Respitory Rate 16 02/21/2019 [facility] Heart Rate 63 02/21/2019 [facility] Systolic (mm Hg) 154 02/21/2019 [facility] Christina ro Diastolic (mm Hg) 85 02/21/2019 [facility] Encounters Location Location Encounter Encounter Reason Attending ADM [place] Stat Source Details Type Number For Provider Date Date Visit [facility] Outpatient [id number] Jeffrey 02/21 02/22 [facility] /2018 Neuro Levy Outpatient [id number] Jeffrey 03/21 [facility] Raul MNA Outpatient [id number] Jeffrey 03/21 03/22 [facility] Outpatient [id number] Jeffrey 05/21 [facility] Outpatient [id number] Jeffrey 05/21 05/22 [facility] Levy Outpatient [id number] Jeffrey 07/24 [facility] Raul [facility] Outpatient [id number] Jeffrey 07/24 07/25 [facility] Levy Outpatient [id number] Jeffrey 09/16 [facility] Ambulatory [id number] Jeffrey 09/16 09/16 [facility] Levy Outpatient [id number] Jeffrey 03/24 [facility] /2019 Com[place] [facility] Outpatient [id number] [place] 03/24 03/25 [facility] Johnathan /2019 /2019 Neuro Levy Outpatient [id number] Jeffrey 03/30 [facility] /2019 Com[place] [facility] Ambulatory [id number] [place] 03/30 03/30 [facility] Pre-Reg Johnathan /2019 Neuro Levy Outpatient [id number] Jeffrey 05/25 [facility] /2019 Raul [facility] Outpatient [id number] [place] 05/25 05/26 [facility] Johnathan /2019 /2019 Neuro Levy Outpatient [id number] Jeffrey 08/24 [facility] /2019 Combs [facility] Ambulatory [id number] [place] 08/24 08/24 [facility] Pre[facility]Reg Johnathan /2019 Neuro Levy Procedures No Data Provided for This Section [...]
--- OUTSIDE RECORDS SUMMARY | 2020-09-04 16:15 | XMS REPORT | Continuity of Care Document ---
:1940 Author Organization [facility] t Address [address] [place] [address] Care Team Providers Name Role Phone Hollis Garcia Attending Clinician Angela ADAMS S Attending Clinician Yocasta TURN LASTER G Attending Clinician Timothy WOLFE Attending Clinician Problems Condition Condition Condition Status Onset Resolution Last Treating Co mments Source Name Details Category Date Date Treatment Clinician Date Hypertensi Problem Active 2020-08-26 M emoria ve 22:42:00 l disorder, [place] systemic Hypertensi arterial ve (disorder) disorder, systemic [...] Memor ia impairment 22:42:00 l (finding) Memory Jessie nn impairment (finding) Active Problem 08/26/2020 [facility] Morbid Problem Active 2020-08-26 Memor ia obesity 22:42:00 l (disorder) Morbid Herm bernie obesity (disorder) Active Problem 08/26/2020 [facility] Recurrent Problem Active 2020-08-26 Me moria falls 22:42:00 l (finding) [place] Recurrent falls (finding) Active Problem 08/26/2020 [facility] Transient Problem Active 2020-08-26 Me moria ischemic 22:42:00 l attack [place] (disorder) Transient ischemic attack (disorder) Active Problem 08/26/2020 [facility] Tremor Problem Active 2020-08-26 Memor ia (finding) 22:42:00 l Tremor [place] (finding) Active Problem 08/26/2020 [facility] Allergies, Adverse Reactions, Alerts Allergy Allergy Status Severity Reaction(s) Onset Inactive Treating Comm ents Source Name Type Date Date Clinician Avelox Avelox Active MS^Mild Memoria lavelle Carter Social History Smoking Status Start Date Stop Date Source Social History 2020-05-25 18:44:53 2020-05-25 18:44:53 [facility] Raul Medications Ordered Filled Start Stop Current [...] Jessie nn 00 tab, 3 Refill(s), Pharmacy: [facility] cy #[id number], 149.86, cm, 05/25/20 13:41:00 CDT, Height, 95.455, kg, 05/25/20 13:41:00 CDT, Weight primidone No 50 mg = 1 Mem oria 50 mg oral 6-25 tab, PO, l tablet 13:48: Bedtime, # Jessie nn 00 90 tab, 3 Refill(s), Pharmacy: [facility] #[id number], 149.86, cm, 03/24/20 9:12:00 CDT, Height, 90.909, kg, 03/24/20 9:12:00 CDT, Weight donepezil Yes 10 mg = 1 Mem oria 10 mg oral 6-24 tab, PO, l tablet 14:32: Daily, # Killen 00 30 tab, 3 Refill(s), Pharmacy: [facility] #[id number], 149.86, cm, 03/24/20 9:12:00 CDT, Height, 90.909, kg, 03/24/20 9:12:00 CDT, Weight primidone 2019- No 50 mg = 1 Mem oria 50 mg oral 6-24 tab, PO, l tablet 14:32: Bedtime, X Jessie nn 00 30 day, # 30 tab, 3 Refill(s), Pharmacy: [facility] #[id number], 149.86, cm, 03/24/20 9:12:00 CDT, Height, 90.909, kg, 03/24/20 9:12:00 CDT, Weight topiramate 2018-10 No 25 mg = 1 Me moria 25 MG Oral 0-24 tab, PO, l Tablet 20:22: Bedtime, # Jessie nn [Topamax] 00 30 tab, 3 Refill(s) Walker 2019-0 Yes 1 ea, Memoria 7-26 MISC, l 21:45: Daily, # 1 Raul 00 ea, 0 Refill(s) Adult 2019-0 Yes 81 mg = 1 Memoria Aspirin 81 6-21 tab, CHEW, l mg oral 20:18: Daily, # Ajay n tablet, 00 30 tab, 3 chewable Refill(s), Pharmacy: [facility] #[id number] levothyroxi 2018-0 Yes 125 Memori a [...] PO, l Oral Tablet 20:06: Daily, # He rmann [Lexapro] 00 30 tab, 0 Refill(s) [...] PRN l 0.025 MG / 20:06: for rodrigo Bae rmann Diphenoxyla 00 stool, 0 te Refill(s) [...] tab, PO, l tablet 20:06: Daily, # Killen 00 30 tab, 0 Refill(s) donepezil Yes 10 mg = 1 Mem oria 10 mg oral 5-24 tab, PO, l tablet 20:06: Daily, # Raul 00 30 tab, 0 Refill(s) ProAir HFA 2018- Yes 1 - 2 Memori a 5-24 puffs, PO, l 20:06: Q4H, PRN [place] 00 Wheezing / cough / shortness of breath, # 1 ea, 0 Refill(s) Vital Signs Vital Name Observation Time Observation Value Comments Source Systolic (mm Hg) 2020-05-25 18:41:00 Jose Francisco Carter Diastolic (mm Hg) 2020-05-25 18:41:00 Chao Carter Heart Rate 2020-05-25 18:41:00 Nancy Crater Respitory Rate 2020-05-25 18:41:00 Carlotta al Raul Temperature Oral (F) 2020-05-25 18:41:00 98.6 F [facility] [place] Height 2020-05-25 18:41:00 149.86 cm [facility] [place] Weight 2020-05-25 18:41:00 [facility] Raul BMI Calculated 2020-05-25 18:41:00 Memori al [place] Systolic (mm Hg) 2020-03-24 14:12:00 Jose Francisco rial Raul Diastolic (mm Hg) 2020-03-24 14:12:00 Mem orial [place] Heart Rate 2020-03-24 14:12:00 [facility] [place] Height 2020-03-24 14:12:00 149.86 cm [facility] [place] Weight 2020-03-24 14:12:00 [facility] [place] BMI Calculated 2020-03-24 14:12:00 Memori al Raul Systolic (mm Hg) 2019-07-24 19:29:00 Jose Francisco rial Raul Diastolic (mm Hg) 2019-07-24 19:29:00 Mem orial [place] Heart Rate 2019-07-24 19:29:00 [facility] Raul Respitory Rate 2019-07-24 19:29:00 Memori al [place] Height 2019-07-24 19:29:00 149.86 cm [facility] [place] Weight 2019-07-24 19:29:00 [facility] Raul BMI Calculated 2019-07-24 19:29:00 Memori al Raul Systolic (mm Hg) 2019-05-21 19:25:00 Jose Francisco rial Raul Diastolic (mm Hg) 2019-05-21 19:25:00 Mem orial [place] Heart Rate 2019-05-21 19:25:00 [facility] Raul Respitory Rate 2019-05-21 19:25:00 Memori al [place] Height 2019-05-21 19:25:00 149.86 cm [facility] [place] Weight 2019-05-21 19:25:00 [facility] [place] BMI Calculated 2019-05-21 19:25:00 Memori al [place] Height 2019-03-21 19:45:00 147.32 cm [facility] Raul Weight 2019-03-21 19:45:00 [facility] [place] BMI Calculated 2019-03-21 19:45:00 Memori al Raul Respitory Rate 2019-03-21 19:45:00 Memori al Raul Heart Rate 2019-03-21 19:45:00 [facility] Raul Systolic (mm Hg) 2019-03-21 19:45:00 Jose Francisco rial [place] Diastolic (mm Hg) 2019-03-21 19:45:00 Mem orial [place] Height 2019-02-21 20:01:00 149.86 cm [facility] Raul Weight 2019-02-21 20:01:00 [facility] Raul BMI Calculated 2019-02-21 20:01:00 Carlotta al Rual Respitory Rate 2019-02-21 20:01:00 Memori al Raul Heart Rate 2019-02-21 20:01:00 [facility] Raul Systolic (mm Hg) 2019-02-21 20:01:00 Jose Francisco rial [place] Diastolic (mm Hg) 2019-02-21 20:01:00 Mem orial [place] Procedures This patient has no known procedures. Encounters Start End Encounter Admission Attending Care Care Encounter Source Date/Time Date/Time Type Type Clinicians Facility Department ID 2020-08-24 2020-08-24 Outpatient GOSIA GarciaSCHER PRUDENCIOMISCHER [id number] 13:15:00 13:15:00 Jeffrey 08 [place] 2020-06-28 2020-06-28 Emergency [id number] 11:51:00 15:02:00 Sariah Gutierrez [id number] [place] [id number] [place] [address] [id number] 2020-05-25 2020-05-25 Outpatient GOSIA GarciaSCHANJEL FLANNERYMISCHER [id number] 13:45:00 23:59:59 Jeffrey 07 [place] 2020-03-30 2020-03-30 Outpatient GOSIA GarciaSCHER PRUDENCIOMISCHER [id number] 15:15:00 15:15:00 Jeffrey 05 [place] 2020-03-24 2020-03-24 Outpatient PRUDENCIO GarciaMISCHER MHMISCHER [id number] 09:00:00 23:59:59 Jeffrey 06 [facility] 2020-02-19 2020-02-[id number] 14:18:56 16:04:00 Maria Luisa Gutierrez [id number] [place] [id number] [place] [address] [id number] 2019-12-09 2019-12-10 [facility] [id number] 21:28:34 00:05:00 Jorge Gutierrez [id number] [place] [id number] [place] [id number] 2019-09-16 2019-09-16 Outpatient PRUDENCIO GarciaMISCHER MHMISCHER [id number] 15:00:00 15:00:00 Jeffrey 04 [place] 2019-07-24 2019-07-24 Outpatient Jose MISCHER MISCHER [id number] 14:15:00 23:59:59 Jeffrey 03 [place] 2019-05-21 2019-05-21 Outpatient PRUDENCIO GarciaMISCHER MHMISCHER [id number] 14:30:00 23:59:59 Jeffrey 02 [place] 2019-03-21 2019-03-21 Outpatient PRUDENCIO GarciaMISCHER MHMISCHER [id number] 14:30:00 23:59:59 Jeffrey Hollis 2019-02-21 2019-02-21 Outpatient Jose MISCHER MISCHER [id number] 15:00:00 23:59:59 Jeffrey 00 [place] Results This patient has no known results.
[2020-09-04] MEDS ORDERED: HYDROCODONE/APAP 7.5/325 MG TAB ONE (16:57)
--- NOTE | 2020-09-04 17:11 | RAD REPORT ---
EXAM DESCRIPTION: CT - Head C Spine Mpr Wo Con - 09/04/2020 4:44 pm CLINICAL HISTORY: Head and neck injury status post fall. Head and neck pain COMPARISON: CT neck 2016 MR head March 2020 TECHNIQUE: Computed axial tomography of the head and cervical spine was obtained. Sagittal and coronal reconstruction was performed. All CT scans are performed using dose optimization technique as appropriate and may include automated exposure control or mA/KV adjustment according to patient size. FINDINGS: Left parietal scalp swelling. An intracranial bleed is not seen. The ventricles are normal in caliber. An extra-axial fluid collect ion is not noted.Fluid within the visualized sinuses and mastoids is not seen Prevertebral soft tissue swelling C2-C4 mild anterior subluxation C2 on C3 has developed since the pr ior CT. A cervical fracture is not visualized. No dislocation is noted. Spondylosis involves the cervical spi ne IMPRESSION: No acute intracranial abnormality is seen. Prevertebral soft tissue swelling C2 through C4 with mild anterior subluxation of C2 on C3. This may indicate an injury to the anterior longitudinal ligament. MRI is recommended A cervical fracture is not visualized.
[2020-09-04 17:24] LABS: Urine Amorphous Sediment 3+ /HPF (NONE SEEN); Urine Bacteria >50 /HPF (<20)
--- NOTE | 2020-09-04 17:35 | EDPHYS ---
Physician Documentation [facility] Name: Radha Bentley Age: 79 yrs Sex: Female : 1940 Arrival Date: 09/04/2020 Time: 16:14 Bed 14 Private MD: ED Physician González Shah HPI: 09/04 16:35 This 79 yrs old Female presents to ER via EMS with complaints of Fall Injury. cp 16:35 Details of fall: The patient fell from an upright position, while walking, and struck a cp tile surface. Onset: The symptoms/episode began/occurred just prior to arrival. Associated injuries: The patient sustained injury to the head, hematoma. Patient reports she was preparing to get in shower when she lost her balance and fell backward striking head. No LOC reported. Patient reports fall earlier today causing her to fracture right wrist. Historical: - Allergies: 16:22 Avelox; ah 16:22 Band-aid adhesive; - Home Meds: 16:22 losartan oral oral [Active]; gabapentin oral oral [Active]; levothyroxine oral [Active]; - PMHx: 16:22 Diverticulitis; Heart Murmur; Hyperlipidemia; Hypertension; Hypothyroidism; Pneumonia; ah ADD/ADHD; COPD; - PSHx: 16:22 Cholecystectomy; Knee surgery; shoulder; breast reduction; abdominal surgery; - Immunization history:: Adult Immunizations up to date. - Social history:: Smoking status: Patient/guardian denies using tobacco. ROS: 16:40 Constitutional: Positive for fever, Negative for body aches, chills, poor PO intake. cp 16:40 Eyes: Negative for injury, pain, redness, and discharge. cp 16:40 Neck: Negative for pain with movement, pain at rest, stiffness. 16:40 Cardiovascular: Negative for chest pain. 16:40 Respiratory: Negative for cough, shortness of breath, wheezing. 16:40 Abdomen/GI: Negative for abdominal pain, nausea, vomiting, and diarrhea. 16:40 Back: Negative for pain at rest, pain with movement. 16:40 MS/extremity: Positive for injury or acute deformity, pain, of the right wrist. 16:40 Skin: Positive for hematoma, of the scalp. 16:40 Neuro: Negative for altered mental status, loss of consciousness, syncope, weakness. 16:40 All other systems are negative. Exam: 16:45 Constitutional: The patient appears in no acute distress, alert, awake, cp non-diaphoretic, non-toxic, well developed, well nourished, obese. 16:45 Head/face: Noted is hematoma, that is mild, of the left side of the back of head, cp tenderness, that is mild, of the left side of the back of head. 16:45 Eyes: Periorbital structures: appear normal, Pupils: equal, round, and reactive to light and accomodation, Extraocular movements: intact throughout, Conjunctiva: normal, no exudate, no injection, Sclera: no appreciated abnormality, Lids and lashes: appear normal, bilaterally. 16:45 ENT: External ear(s): are unremarkable, Nose: is normal, Mouth: Lips: moist, Oral mucosa: moist. 16:45 Neck: C-spine: vertebral tenderness, is not appreciated, crepitus, is not appreciated, ROM/movement: pain, is not appreciated, limited range of motion, is not appreciated. 16:45 Chest/axilla: Inspection: normal, Palpation: is normal, no crepitus, no tenderness. 16:45 Cardiovascular: Rate: normal, Rhythm: regular. 16:45 Respiratory: the patient does not display signs of respiratory distress, Respirations: normal, no use of accessory muscles, no retractions, labored breathing, is not present, Breath sounds: are clear throughout, no decreased breath sounds. 16:45 Abdomen/GI: Inspection: abdomen appears normal, Palpation: abdomen is soft and non-tender, in all quadrants. 16:45 Back: pain, is absent. 16:45 Musculoskeletal/extremity: sugar tong splint in place right forearm with no signs of compartment syndrome. 16:45 Neuro: Orientation: to person, place \T\ time. Mentation: is normal, Motor: moves all fours, strength is normal, Sensation: no obvious gross deficits. 17:37 ECG was reviewed by the Attending Physician. cp Vital Signs: 16:10 BP 154 / 95; Pulse 78; Resp 20; Temp 100.5; Pulse Ox 95% ; Weight 90.72 kg; Height 4 ah ft. 11 in. (149.86 cm); Pain 8/10; 18:32 BP 164 / 71; Pulse 84; Resp 17; Temp 99.6; Pulse Ox 98% ; ah 16:10 Body Mass Index 40.39 (90.72 kg, 149.86 cm) [place] Coma Score: 19:00 Eye Response: spontaneous(4). Verbal Response: oriented(5). Motor Response: obeys jb4 commands(6). Total: 15. Trauma Score (Adult): 19:00 Eye Response: spontaneous(1); Verbal Response: oriented(1); Motor Response: obeys jb4 commands(2); Systolic BP: > 89 mm Hg(4); Respiratory Rate: 10 to 29 per min(4); [place] Score: 15; Trauma Score: 12 MDM: 16:16 Patient medically screened. 17:00 Differential diagnosis: closed head injury, contusion, fracture, multiple trauma, cp cervical sprain. 17:33 Data reviewed: vital signs, nurses notes, radiologic studies, CT scan, I have discussed the patient's presentation/case with the attending Emergency Department Physician; and as a result, I will transfer patient. 18:00 ED course: Patient accepted as transfer to [facility] by DR Viktoria Vick. 09/04 16:44 Order name: Urine Microscopic Only; Complete Time: 17:36 09/04 17:36 Interpretation: Normal except: UWBC LOADED; URBC 5-10; UBACT >50; AMORPH 3+. 09/04 17:09 Order name: Urine Dipstick--Ancillary (enter results) 09/04 17:24 Order name: Basic Metabolic Panel 09/04 17:24 Order name: CBC with Diff 09/04 17:24 Order name: Magnesium 09/04 17:24 Order name: PT-INR 09/04 16:17 Order name: CT Head C Spine; Complete Time: 17:18 09/04 16:44 Order name: Urine Dipstick-Ancillary (obtain specimen); Complete Time: 17:19 09/04 17:24 Order name: XRAY Chest (1 view); Complete Time: 17:59 09/04 17:24 Order name: EKG; Complete Time: 17:25 09/04 17:27 Order name: Urine Culture EDAZ 09/04 17:24 Order name: IV; Complete Time: 18:36 09/04 17:24 Order name: Cardiac monitoring; Complete Time: 18:25 cp 09/04 17:24 Order name: EKG - Nurse/Tech; Complete Time: 17:35 cp 09/04 17:24 Order name: Labs collected and sent; Complete Time: 18:25 cp 09/04 17:24 Order name: O2 Per Protocol; Complete Time: 17:27 cp 09/04 17:24 Order name: O2 Sat Monitoring; Complete Time: 17:27 cp EC:37 Rate is 85 beats/min. Rhythm is regular. [place] interval is prolonged at 234 msec. QRS cp interval is prolonged at 108 msec. QT interval is prolonged at 404 msec. T waves are Inverted in leads aVL, aVR. Interpreted by me. Reviewed by me. Administered Medications: 17:03 Drug: Hydrocodone-Acetaminophen (7.5 mg-325 mg) 1 tabs Route: PO; 17:25 Drug: fentaNYL (PF) 25 mcg Route: IVP; Site: left antecubital; 18:25 Drug: Rocephin - (cefTRIAXone) 1 grams Route: IVPB; Infused Over: 30 mins; Site: left ah antecubital; Disposition: 18:05 Chart complete. 12 07:41 Co-signature as Attending Physician, González Shah MD. rn Disposition: 09/04/20 17:35 Transfer ordered to [facility]. Diagnosis are Fall on same level from slipping, tripping and stumbling, Sprain of ligaments of cervical spine, Urinary tract infection, site not specified. - Reason for transfer: Higher level of care. - Accepting physician is DR Viktoria Vick. - Condition is Stable. - Problem is new. - Symptoms have improved. Signatures: Dispatcher [employer] EDMS González Shah MD MD rn Page, Corey, PA PA cp Bryson, James, RN RN jb4 Disha Lucero RN RN Corrections: (The following items were deleted from the chart) 09/04 17:37 17:35 09/04/2020 17:35 Transfer ordered to [facility]. Diagnosis is Fall cp on same level from slipping, tripping and stumbling; Sprain of ligaments of cervical spine. Reason for transfer: Higher level of care. Accepting physician is Doctor. Condition is Stable. Problem is new. Symptoms have improved. cp 17:41 17:37 09/04/2020 17:35 Transfer ordered to [facility]. Diagnosis is Fall cp on same level from slipping, tripping and stumbling; Sprain of ligaments of cervical spine; Urinary tract infection, site not specified. Reason for transfer: Higher level of care. Accepting physician is Doctor. Condition is Stable. Problem is new. Symptoms have improved. cp 19:39 17:41 09/04/2020 17:35 Transfer ordered to [facility]. Diagnosis is Fall jb4 on same level from slipping, tripping and stumbling; Sprain of ligaments of cervical spine; Urinary tract infection, site not specified. Reason for transfer: Higher level of care. Accepting physician is DR Viktoria Vick. Condition is Stable. Problem is new. Symptoms have improved. cp
--- NOTE | 2020-09-04 17:35 | ER ---
Nurse's Notes [facility] Name: Radha Bentley Age: 79 yrs Sex: Female : 1940 Arrival Date: 09/04/2020 Time: 16:14 Bed 14 Private MD: Diagnosis: Fall on same level from slipping, tripping and stumbling;Sprain of ligaments of cervical spine;Urinary tract infection, site not specified Presentation: 09/04 16:10 Chief complaint: Patient states: fell backwards while trying to get in shower, has "bump" on top onleft side of head. Ebola Screen: No symptoms or risks identified at this time. Initial Sepsis Screen: Does the patient meet any 2 criteria? No. Patient's initial sepsis screen is negative. Does the patient have a suspected source of infection? No. Patient's initial sepsis screen is negative. Risk Assessment: Do you want to hurt yourself or someone else? Patient reports no desire to harm self or others. Onset of symptoms was September 04, 2020. 16:10 Method Of Arrival: EMS: [facility] 16:10 Acuity: VAIBHAV 3 Historical: - Allergies: 16:22 Avelox; 16:22 Band-aid adhesive; - Home Meds: 16:22 losartan oral oral [Active]; gabapentin oral oral [Active]; levothyroxine oral [Active]; - PMHx: 16:22 Diverticulitis; Heart Murmur; Hyperlipidemia; Hypertension; Hypothyroidism; Pneumonia; ADD/ADHD; COPD; - PSHx: 16:22 Cholecystectomy; Knee surgery; shoulder; breast reduction; abdominal surgery; - Immunization history:: Adult Immunizations up to date. - Social history:: Smoking status: Patient/guardian denies using tobacco. Screenin:24 Abuse screen: Denies threats or abuse. Nutritional screening: No deficits noted. Tuberculosis screening: No symptoms or risk factors identified. Fall Risk Fall in past 12 months (25 points). Secondary diagnosis (15 points) impaired mobility, Ambulatory Aid- Crutches/Cane/Walker (15 pts). Gait- Impaired (20 pts.). Mental Status- Oriented to own ability (0 pts). Total [place] Fall Scale indicates High Risk Score (45 or more points). Fall prevention measures have been instituted. Side Rails Up X 2 Placed Close to Nursing Station Frequent Obs/Assessments Occuring As available patient and family educated on Fall Prevention Program and Strategies. Assessment: 16:23 Reassessment: Pt states that she was in ER less than 24 hours ago with possible fx to right wrist. R arm in norah wrap. She does c/o pain 8/10. 16:25 General: Appears uncomfortable, Behavior is calm, cooperative, appropriate for age. Pain: Complains of pain in right wrist Pain does not radiate. Pain currently is 8 out of 10 on a pain scale. Quality of pain is described as aching, Pain began 1 day ago. Neuro: Level of Consciousness is awake, alert, obeys commands, Oriented to person, place, time, situation, Appropriate for age. Cardiovascular: Heart tones S1 S2 present. Respiratory: Airway is patent Respiratory effort is even, unlabored, Respiratory pattern is regular. GI: No signs and/or symptoms were reported involving the gastrointestinal system. EENT:. Derm: Skin is intact. Musculoskeletal: Circulation, motion, and sensation intact. 16:35 Reassessment: Pt to radiology via stretcher for CT scan. 18:34 Reassessment: IV Rocephin infusing to left AC. Pt tolerating well. C Collar in place. 19:00 Reassessment: Patient appears in no apparent distress at this time. Patient and/or jb4 family updated on plan of care and expected duration. Pain level reassessed. Patient is alert, oriented x 3, equal unlabored respirations, skin warm/dry/pink. 19:20 Reassessment: Report given to EMS, PT transferred out of ED. [facility] Vital Signs: 16:10 BP 154 / 95; Pulse 78; Resp 20; Temp 100.5; Pulse Ox 95% ; Weight 90.72 kg; Height 4 ft. 11 in. (149.86 cm); Pain 8/10; 18:32 BP 164 / 71; Pulse 84; Resp 17; Temp 99.6; Pulse Ox 98% ; ah 16:10 Body Mass Index 40.39 (90.72 kg, 149.86 cm) [place] Coma Score: 19:00 Eye Response: spontaneous(4). Verbal Response: oriented(5). Motor Response: obeys jb4 commands(6). Total: 15. Trauma Score (Adult): 19:00 Eye Response: spontaneous(1); Verbal Response: oriented(1); Motor Response: obeys jb4 commands(2); Systolic BP: > 89 mm Hg(4); Respiratory Rate: 10 to 29 per min(4); [place] Score: 15; Trauma Score: 12 ED Course: 16:14 Patient arrived in ED. ds1 16:15 Ady Bower PA is PHCP. cp 16:15 González Shah MD is Attending Physician. cp 16:16 Disha Lucero, RN is Primary Nurse. ah 16:20 Triage completed. ah 16:44 CT Head C Spine In Process Unspecified. EDMS 17:23 initiated a transfer with Albertina Whiteside from the [facility]. eb 17:33 EKG done, by ED staff, reviewed by Ady HERNANDEZ. [facility] 17:35 administrative approval given by Albertina Whiteside/ patient has been accepted to [facility] Er/ Dr. Vick the Trauma Surgeon science consultant has accepted the patient in transfer without conference. report to be called to [phone]. 17:49 Patient has correct armband on for positive identification. Placed in gown. Bed in low ah position. Call light in reach. Side rails up X2. police captain on. Pulse ox on. NIBP on. 17:50 XRAY Chest (1 view) In Process Unspecified. EDMS 18:05 Inserted saline lock: 20 gauge in left antecubital area, using aseptic technique. Blood ah collected. 19:20 No provider procedures requiring assistance completed. Patient transferred, IV remains jb4 in place. 19:39 Primary Nurse role handed off by Disha Lucero, RN jb4 19:39 Johnnie Hernandez, RN is Primary Nurse. jb4 Administered Medications: 17:03 Drug: Hydrocodone-Acetaminophen (7.5 mg-325 mg) 1 tabs Route: PO; ah 17:25 Drug: fentaNYL (PF) 25 mcg Route: IVP; Site: left antecubital; ah 18:25 Drug: Rocephin - (cefTRIAXone) 1 grams Route: IVPB; Infused Over: 30 mins; Site: left ah antecubital; Outcome: 17:35 ER care complete, transfer ordered by . cp 19:20 Transferred by ground EMS to [facility]. jb4 19:20 Condition: stable 19:20 Discharge instructions given to patient, Instructed on the need for transfer, Demonstrated understanding of instructions. 19:39 Patient left the ED. jb4 Addendum: 09/07/2020 15:16 Addendum: Culture Results: Positive urine culture. Bacteria is resistant to, has a a5 intermediate sensitivity, or is not tested against prescribed antibiotics. Report given to SARAH for further evaluation and then to braided band assembler for follow up with patient. Phone call Attempt #1 spoke to pt [id number], instructed pt to follow-up with PCP, results faxed to Dr. Mann (PCP). Signatures: Dispatcher [employer] EDNC Clara Carroll ds1 Cristy Bowman, RN RN aa5 Ady Bower PA PA cp Bryson, James, RN RN jb4 Reba Vázquez dh3 Agustina Wilson Amy, RN RN
--- NOTE | 2020-09-04 17:58 | RAD REPORT ---
EXAM DESCRIPTION: Vishnu Single View09/04/2020 5:49 pm CLINICAL HISTORY: Chest pain COMPARISON: June 2020 FINDINGS: The lungs appear clear of acute infiltrate. The heart is borderline enlarged. 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 Chronic elevation right hemidiaphragm IMPRESSION: No acute abnormalities displayed
[2020-09-04 18:15] LABS: Absolute Lymphocytes (CBC) 0.7 K/uL (0.7-4.9); Basophils % 0.9 % (0-1.3); MPV 7.9 fL (7.6-11.3); RBC Red Blood Cell Count 4.25 M/uL (3.86-4.86)
[2020-09-04 18:22] LABS: Protime INR 1.08
[2020-09-04] MEDS ORDERED: FENTANYL CITR 100 MCG/2 ML ONE (18:25)
[2020-09-04] MEDS ORDERED: NA CHLORIDE 0.9% 50 ML ONE (18:25)
[2020-09-04] MEDS ORDERED: CEFTRIAXONE 1000 MG/VIAL ONE (18:25)
[2020-09-04 18:29] LABS: Magnesium 2.4 mg/dL (1.8-2.4); Potassium 3.9 mmol/L (3.5-5.1)
[2020-09-04 20:09] LABS: Urine Blood 2+ (NEG); Urine Glucose NEGATIVE (NEG); Urine Protein 3+ (NEG); Urine Specific Gravity 1.025 (1.005-1.030)
[2020-09-09 05:12] VITALS: BP 164/71; TEMP 99.6; O2SAT 98
== END 2020-09-04 19:39 | disposition short-term general hospital (02) ==
LOC: ER 16:13
DX: S13.4XXA Sprain of ligaments of cervical spine, initial encounter (principal); N39.0 Urinary tract infection, site not specified; W01.0XXA Fall on same level from slipping, tripping and stumbling without subsequent striking against object, initial encounter; Y93.89 Activity, other specified; Y92.89 Other specified places as the place of occurrence of the external cause; Z88.6 Allergy status to analgesic agent; Z91.048 Other nonmedicinal substance allergy status; I10 Essential (primary) hypertension; E78.5 Hyperlipidemia, unspecified; E03.9 Hypothyroidism, unspecified
CPT/HCPCS: 93005; 87088; 85025; 87086; 80048; 36415; 83735; 85610; 87077; 87186; 70450; 72125; 71045; 96375; 96374; 99285; J3010; 81003; 81015

== ENCOUNTER 2021-03-08 14:26 | Emergency (ER) | payer OTHER ==
--- OUTSIDE RECORDS SUMMARY | 2021-03-08 14:30 | XMS REPORT | Continuity of Care Document ---
:1940 Author Organization [facility] t Address [address] [place] [address] Care Team Providers Name Role Phone JerezStella alvareze Attending Clinician [phone] Hollis Garcia Attending Clinician Chu Soni Attending Clinician Angela ADAMS S Attending Clinician Dimitri Rust NP Attending Clinician Timothy WOLFE Attending Clinician Chu Soni Admitting Clinician Problems Condition Condition Condition Status Onset Resolution Last Treating Co mments Source Name Details Category Date Date Treatment Clinician Date FALL FROM Diagnosis Active 2019-102020-09-16 Memoria STANDING 11-05 21:55:00 l FALL 00:00: Raul FROM 00 STANDING Active 09/04/2020 [facility] S/P FALL, Diagnosis Active 2019-102020-09-05 Memoria FRACTURED 11-05 00:45:00 l RIGHT S/P 00:00: Raul WRIST, FALL, 00 HEAD HE FRACTURED RIGHT WRIST, HEAD HE Active 09/04/2020 [facility] Hypertensi Problem Active 2021-01-31 M emoria ve 23:26:56 l disorder, [place] systemic Hypertensi arterial ve (disorder) disorder, systemic arterial (disorder) Active Problem 01/31/2021 [facility] Hyperlipid Problem Active 2021-01-31 M emoria emia 23:26:56 l (disorder) Ajay n Hyperlipid emia (disorder) Active Problem 01/31/2021 [facility] Hypothyroi Problem Active 2021-01-31 M emoria dism 23:26:56 l (disorder) Ajay n Hypothyroi dism (disorder) Active Problem 01/31/2021 [facility] Memory Problem Active 2021-01-31 Memor ia impairment 23:26:56 l (finding) Memory Jessie nn impairment (finding) Active Problem 01/31/2021 [facility] Morbid Problem Active 2021-01-31 Memor ia obesity 23:26:56 l (disorder) Morbid Herm bernie obesity (disorder) Active Problem 01/31/2021 [facility] Recurrent Problem Active 2021-01-31 Me moria falls 23:26:56 l (finding) Raul Recurrent falls (finding) Active Problem 01/31/2021 [facility] Transient Problem Active 2021-01-31 Me moria ischemic 23:26:56 l attack [place] (disorder) Transient ischemic attack (disorder) Active Problem 01/31/2021 [facility] Tremor Problem Active 2021-01-31 Memor ia (finding) 23:26:56 l Tremor Raul (finding) Active Problem 01/31/2021 [facility] Chronic Problem Active 2021-01-31 Jose Francisco zhang kidney 23:26:56 l disease Chronic Ajay n (disorder) kidney disease (disorder) Active Problem 01/31/2021 [facility] Chronic Problem Active 2021-01-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 UNSPECIFIE Diagnosis Active 2020-09-16 Memoria D FALL, 21:55:00 l INITIAL Raul ENCOUNTER UNSPECIFIE D FALL, INITIAL ENCOUNTER Active [facility] Allergies, Adverse Reactions, Alerts Allergy Allergy Status Severity Reaction(s) Onset Inactive Treating Comm ents Source Name Type Date Date Clinician Avelox Avelox Active GA^Mild Memoria l Raul Social History Social Habit Start Date Stop Date Quantity Comments Source Social History 2020-09-05 2020-09-05 [facility] Dorothea reinaldo 14:31:45 14:31:45 Medications Ordered Filled Start Stop Current Ordering Indication Dosage Frequency Signature Comments Components Source Medication Medication Date Date Medication? Clinician (SIG) Name Name donepezil Yes = 1 tab, Jose Francisco zhang 10 mg oral 3-26 PO, Daily, l tablet 19:08: # 90 tab, Ajay n 00 1 Refill(s), Pharmacy: [id number], 149.86, cm, 12/24/20 13:59:00 CDT, Height, 93.182, kg, 12/24/20 13:59:00 CDT, Weight primidone Yes 50 mg = 1 Mem oria 50 mg oral 3-26 tab, PO, l tablet 19:08: Bedtime, # Jessie nn 00 90 tab, 2 Refill(s), Pharmacy: [id number], 149.86, cm, 12/24/20 13:59:00 CDT, Height, 93.182, kg, 12/24/20 13:59:00 CDT, Weight Lovastatin 2019-10 No 20 mg, 1 Mem oria 2-07 tab, l 03:00: Route: PO, [place] 00 Drug form: TAB, Bedtime, Dosing Weight 104.545, kg, Start date: 09/05/20 21:00:00 TRANSLATOR DEAF, 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, Stop date: 10/04/20 21:00:00 TRANSLATOR DEAF Primidone 2019-10 No Notes: Memori a 2-07 (Same as: l :00: Mysoline) Lipitor 2019-10 No Notes: Memoria 2-07 (Same As: l 03:00: Lipitor) Acetaminoph 2019-10 Yes 500 mg = 1 Memoria en 500 MG 2-06 tab, PO, l Oral Tablet 18:51: Q6Hnow, 0 H erm Refill(s) DuoNeb 2019-10 No Notes: Memoria inhalation 2-06 (Same as: l solution 17:00: Duoneb) Pulmicort 2019-10 No Notes: Memori a Respules 2-06 (Same As: l 16:00: Pulmicort) Bupropion 2019-10 No Notes: Memori a 2-06 (Same as: l 15:00: Wellbutrin XL) "Do Not Crush" carvedilol 2019-10 No Notes: Memor ia 2-06 Give with l 15:00: food. (Same As: Coreg) donepezil 2019-10 No Notes: Memori a 2-06 (Same as: l 15:00: Aricept) Escitalopra 2019-10 No Notes: Jose Francisco zhang m 2-06 (Same as: l 15:00: Lexapro) Famotidine 2019-10 No Notes: Memor ia 20 MG Oral 2-06 (Same as: l Tablet 15:00: Pepcid) Anoro 2019-10 No 1 Memoria Ellipta 2-06 inhalation l 62.5 mcg-25 15:00: , Route: He rmann mcg 00 INHALATION inhalation , Drug powder Form: PWDR, Dosing Weight 104.545, kg, Daily, Start date: 09/05/20 9:00:00 TRANSLATOR DEAF, 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, Stop date: 10/04/20 9:00:00 TRANSLATOR DEAF gabapentin 2019-10 No Notes: Memor ia 300 MG Oral 2-06 (Same as: l Capsule 15:00: Neurontin) ropinirole 2019-10 No Notes: Memor ia 2-06 (Same as: l 15:00: Requip) Streptococc 2019-10 No Notes: Jose Francisco zhang us 2-06 Shake well l pneumoniae 14:12: prior to Her ivory serotype 1 45 use (Same capsular as: antigen Prevnar diphtheria 13) [id number] protein conjugate vaccine / Streptococc us pneumoniae serotype 14 capsular antigen diphtheria [id number] protein conjugate vaccine / Streptococc us pneumoniae serotype 18C capsular antigen d Thyroxine 2019-10 No Notes: Memori a 2-06 Take 1 l 14:00: hour [place] 00 before or 2 hours after meal; Enteral feeds may interefere with the absorption of this medication . (Same as:Levothr oid) Iohexol 2019-10 No 100 mL, Memoria 2-06 Route: l 12:39: IVP, Drug Raul 00 Form: SOLN, Dosing Weight 104.545, kg, ONCALL, STAT, Start date: 09/05/20 6:39:00 TRANSLATOR DEAF, Duration: 1 doses or times, Dose = 2.2ml/kg, Max dose = 100ml -- "To be infused by Radiology Staff ONLY" Acetaminoph 2019-10 No Notes: Max Memoria en 2-06 acetaminop l 07:00: hen 4000 Raul 00 mg/day (4 gm/day). (Same as: Tylenol Extra Strength) Oxycodone 2019-10 No Notes: Memori a Hydrochlori -06 (Same as: l de 1 MG/ML 06:48: 'Roxicodon H ermann Oral 00 e) Solution spironolact 2019-10 Yes 25 mg = 1 M emoria one 25 mg 2-06 tab, PO, l oral tablet 06:48: Daily, # He rmann 00 30 tab, 3 Refill(s) carvedilol 2019-10 Yes 6.25 mg = Me moria 6.25 mg 2-06 1 tab, PO, l oral tablet 06:48: BID, # 180 [place] 00 tab, 1 Refill(s) amLODIPine 2019-10 Yes 10 mg = 1 Me moria 10 mg oral 2-06 tab, PO, l tablet 06:48: Daily, # Raul 00 90 tab, 0 Refill(s) escitalopra 2019-10 Yes 20 mg = 1 M emoria m 20 mg 2-06 tab, PO, l oral tablet 06:48: BID, # 90 H ermann 00 tab, 0 Refill(s) 24 HR 2019-10 Yes 150 mg = 1 Memori a Bupropion 2-06 tab, PO, l Hydrochlori 06:48: BID, # 30 H ermann de 150 MG 00 tab, 1 Extended Refill(s) Release Tablet Famotidine 2019-10 Yes 20 mg = 1 Me moria 20 MG Oral 2-06 tab, PO, l Tablet 06:48: Daily, # [place] 00 60 tab, 1 Refill(s) Trelegy 2019-10 Yes = 1 Memoria Ellipta 2-06 inhalation l inhalation 06:48: , PO, Ajay n powder 00 Daily, PRN COPD, # 1 ea, 0 Refill(s) Dextrose 2019-10 No 12.5 gm, Memor ia 50% Syringe 11-06 25 mL, l (D50W) 06:47: Route: IVP, Drug Form: INJ, Dosing Weight 104.545, kg, PRN, PRN Blood Glucose Results, Start date: 09/05/20 0:47:00 TRANSLATOR DEAF, 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, Stop date: 10/05/20 0:46:00 TRANSLATOR DEAF, 0 Glucagon 2019-10 No 1 mg, Memoria 11-06 Route: IM, l 06:47: Drug form: PDR/INJ, PRN, Dosing Weight 104.545, kg, PRN Blood Glucose Results, Start date: 09/05/20 0:47:00 TRANSLATOR DEAF, 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, Stop date: 10/05/20 0:46:00 TRANSLATOR DEAF, 0 sennosides, 2019-10 No Notes: Jose Francisco zhang HALFWAY 2- (Same as: l 06:47: Senokot) POLYETHYLEN 2019-10 No Notes: Jose Francisco zhang E GLYCOL 2- Dissolve l 3350 06:47: in 8 oz of water or juice. (Same as: Miralax) Ondansetron 2019-10 No Notes: Jose Francisco zhang 2-06 (Same as: l 06:47: Zofran) MEDICATION WASTE Product Size: 4 mg Product Wasted: ___ mg Melatonin 2019-10 No Notes: Memori a 2-06 (Same as: l 06:47: Melatonin) LR IV 1,000 2019-10 No 1,000 mL, M emoria mL 11-06 Rate: 100 l 06:47: ml/hr, [place] 00 Infuse over: 10 hr, Route: IV, Dosing Weight 104.545 kg, Total Volume: 1,000, Start date: 09/05/20 0:47:00 TRANSLATOR DEAF, Duration: 1 day, Stop date: 09/06/20 0:46:00 TRANSLATOR DEAF, 1.97, m2, 0 Tums 2019-10 No Notes: Memoria 2-06 (Same As: l 06:47: Tums) Calcium Carbonate 500 mg = 200 mg elemental calcium Dose = mg calcium carbonate ( mg elemental calcium) Simethicone 2019-10 No Notes: Jose Francisco zhang 2-06 (Same as: l 06:47: Mylicon) Lubricant 2019-10 No Notes: Memori a Eye Drops 2-06 (Same as: l 06:47: Aquasite) Nasal Moist 2019-10 No Notes: Jose Francisco zhang 0.65% 2-06 (Same as: l solution 06:47: [place], [place] 00 Deep Sea Nasal [place]). Tessalon 2019-10 No Notes: Memoria Perles 2-06 (Same As: l 06:47: Tessalon Perles) "Do Not Crush" Guaifenesin 2019-10 No Notes: Jose Francisco zhang 2-06 (Same as: l 06:47: Organidin Raul 00 NR) Blistex 2019-10 No Notes: Memoria topical 2-06 Same as: l ointment 06:47: Blistex Ajay n 00 Albuterol 2019-10 No Notes: SEE Me moria 0.83 MG/ML 2-06 RT l Inhalant 06:47: DOCUMENTAT Her ivory Solution 00 ION (Same as: Proventil) Hydralazine 2019-10 No Notes: Jose Francisco zhang 2-06 (Same as: l 06:45: Apresoline ) Push over 5 minutes Acetaminoph 2019-10 No 1 tab, Jose Francisco zhang en 325 MG / 2-06 Route: PO, l Hydrocodone 04:07: Drug Form: [place] Bitartrate 00 TAB, 5 MG Oral Dosing Tablet Weight 104.545, kg, ONCE, STAT, Start date: 09/04/20 22:07:00 TRANSLATOR DEAF, Stop date: 09/04/20 22:07:00 TRANSLATOR DEAF primidone 2020-0 Yes 50 mg = 1 Mem oria 50 mg oral 9-04 tab, PO, l tablet 22:46: Bedtime, # Jessie nn 00 30 tab, 2 Refill(s), other, Weight primidone 2020-0 Yes 50 mg = 1 Mem oria 50 mg oral 8-25 tab, PO, l tablet 19:03: BID, # 180 Jessie nn 00 tab, 3 Refill(s), Pharmacy: [id number], 149.86, cm, 05/25/20 13:41:00 CDT, Height, 95.455, kg, 05/25/20 13:41:00 CDT, Weight primidone 2020-0 No 50 mg = 1 Mem oria 50 mg oral 6-25 tab, PO, l tablet 13:48: Bedtime, # Jessie nn 00 90 tab, 3 Refill(s), Pharmacy: [id number], 149.86, cm, 03/24/20 9:12:00 CDT, Height, 90.909, kg, 03/24/20 9:12:00 CDT, Weight donepezil 2020-0 Yes 10 mg = 1 Mem oria 10 mg oral 6-24 tab, PO, l tablet 14:32: Daily, # Raul 00 30 tab, 3 Refill(s), Pharmacy: [id number], 149.86, cm, 03/24/20 9:12:00 CDT, Height, 90.909, kg, 03/24/20 9:12:00 CDT, Weight primidone 2020-0 No 50 mg = 1 Mem oria 50 mg oral 6-24 tab, PO, l tablet 14:32: Bedtime, X Jessie nn 00 30 day, # 30 tab, 3 Refill(s), Pharmacy: [id number], 149.86, cm, 03/24/20 9:12:00 CDT, Height, 90.909, kg, 03/24/20 9:12:00 CDT, Weight topiramate 2019-1 No 25 mg = 1 Me moria 25 MG Oral 0-24 tab, PO, l Tablet 20:22: Bedtime, # Jessie nn [Topamax] 00 30 tab, 3 Refill(s) Walker 2019- Yes 1 ea, Memoria 7-26 MISC, l 21:45: Daily, # 1 Raul 00 ea, 0 Refill(s) Adult 20190 Yes 81 mg = 1 Memoria Aspirin 81 6-21 tab, CHEW, l mg oral 20:18: Daily, # Ajay n tablet, 00 30 tab, 3 chewable Refill(s), Pharmacy: [id number] levothyroxi 2018-0 Yes 125 Memori a ne 125 mcg 5-24 microgram l (0.125 mg) 20:29: = 1 tab, Her ivory oral tablet 00 PO, Daily, # 30 tab, 0 Refill(s) gabapentin Yes 300 mg = 1 M emoria [...] 0.025 MG / 20:06: for loose [place] Diphenoxyla 00 stool, 0 te Refill(s) Hydrochlori de 2.5 MG Oral Tablet [Lomotil] lovastatin Yes 20 mg = 1 Me moria 20 mg oral 5-24 tab, PO, l tablet 20:06: Bedtime, # Jessie nn 00 30 tab, 0 Refill(s) rOPINIRole 2019- Yes 2 mg = 1 Mem oria 2 mg oral 5-24 tab, PO, l tablet 20:06: BID, 0 Raul 00 Refill(s) lisinopril 2019-0 Yes 40 mg = 1 Me moria 40 mg oral 5-24 tab, PO, l tablet 20:06: Daily, # [place] 00 30 tab, 0 Refill(s) donepezil 2019-0 Yes 10 mg = 1 Mem oria [...] Observation Value Comments Source Systolic (mm Hg) 2020-12-24 18:59:00 Jose Francisco rial Raul Diastolic (mm Hg) 2020-12-24 18:59:00 Mem orial [place] Heart Rate 2020-12-24 18:59:00 [facility] Respitory Rate 2020-12-24 18:59:00 [facility] al [place] Height 2020-12-24 18:59:00 149.86 cm [facility] Weight 2020-12-24 18:59:00 [facility] BMI Calculated 2020-12-24 18:59:00 Memori al [place] Systolic (mm Hg) 2020-09-06 20:47:00 Jose Francisco rial [place] Diastolic (mm Hg) 2020-09-06 20:47:00 Mem orial Raul Temperature Oral (F) 2020-09-06 18:26:00 99.7 F [facility] Raul Heart Rate 2020-09-06 18:26:00 [facility] Raul Respitory Rate 2020-09-06 18:26:00 Memori al Raul Systolic (mm Hg) 2020-09-06 18:26:00 Jose Francisco rial Raul Diastolic (mm Hg) 2020-09-06 18:26:00 Mem orial Raul Temperature Oral (F) 2020-09-06 14:09:00 98.1 F [facility] Raul Heart Rate 2020-09-06 14:09:00 [facility] [place] Respitory Rate 2020-09-06 14:09:00 Memori al Raul Systolic (mm Hg) 2020-09-06 14:09:00 Jose Francisco rial Raul Diastolic (mm Hg) 2020-09-06 14:09:00 Mem orial Raul Temperature Oral (F) 2020-09-06 10:00:00 98.1 F [facility] [place] Heart Rate 2020-09-06 10:00:00 [facility] [place] Respitory Rate 2020-09-06 10:00:00 Memori al Raul Temperature Oral (F) 2020-09-06 06:30:00 97.5 F [facility] [place] Heart Rate 2020-09-06 06:30:00 [facility] [place] Respitory Rate 2020-09-06 06:30:00 Memori al [place] Systolic (mm Hg) 2020-09-06 06:30:00 Jose Francisco rial [place] Diastolic (mm Hg) 2020-09-06 06:30:00 Mem orial Raul Temperature Oral (F) 2020-09-06 02:45:00 97.8 F [facility] Raul Heart Rate 2020-09-06 02:45:00 [facility] [place] Respitory Rate 2020-09-06 02:45:00 Memori al Raul Systolic (mm Hg) 2020-09-06 02:45:00 Jose Francisco rial [place] Diastolic (mm Hg) 2020-09-06 02:45:00 Mem orial Raul Temperature Oral (F) 2020-09-05 22:00:00 97 F [facility] [place] Heart Rate 2020-09-05 22:00:00 [facility] [place] Respitory Rate 2020-09-05 22:00:00 Memori al Raul Systolic (mm Hg) 2020-09-05 22:00:00 Jose Francisco rial [place] Diastolic (mm Hg) 2020-09-05 22:00:00 Mem orial [place] Height 2020-09-05 02:46:00 124.46 cm [facility] [place] BMI Calculated 2020-09-05 02:46:00 Memori al Raul Weight 2020-09-05 02:46:00 [facility] [place] Systolic (mm Hg) 2020-05-25 18:41:00 Jose Francisco rial Raul Diastolic (mm Hg) 2020-05-25 18:41:00 Mem orial [place] Heart Rate 2020-05-25 18:41:00 [facility] [place] Respitory Rate 2020-05-25 18:41:00 Memori al Raul Temperature Oral (F) 2020-05-25 18:41:00 98.6 F [facility] [place] Height 2020-05-25 18:41:00 149.86 cm [facility] Raul Weight 2020-05-25 18:41:00 [facility] [place] BMI Calculated 2020-05-25 18:41:00 Memori al [place] Systolic (mm Hg) 2020-03-24 14:12:00 Jose Francisco rial Raul Diastolic (mm Hg) 2020-03-24 14:12:00 Mem orial Raul Heart Rate 2020-03-24 14:12:00 [facility] Raul Height 2020-03-24 14:12:00 149.86 cm [facility] Raul Weight 2020-03-24 14:12:00 [facility] Raul BMI Calculated 2020-03-24 14:12:00 Memori al Raul Systolic (mm Hg) 2019-07-24 19:29:00 Jose Francisco rial [place] Diastolic (mm Hg) 2019-07-24 19:29:00 Mem orial Raul Heart Rate 2019-07-24 19:29:00 [facility] [place] Respitory Rate 2019-07-24 19:29:00 Memori al Ral[place] Height 2019-07-24 19:29:00 149.86 cm [facility] [place] Weight 2019-07-24 19:29:00 [facility] Raul BMI Calculated 2019-07-24 19:29:00 Memori al Raul Systolic (mm Hg) 2019-05-21 19:25:00 Jose Francisco rial [place] Diastolic (mm Hg) 2019-05-21 19:25:00 Mem orial Raul Heart Rate 2019-05-21 19:25:00 [facility] [place] Respitory Rate 2019-05-21 19:25:00 Memori al [place] Height 2019-05-21 19:25:00 149.86 cm [facility] [place] Weight 2019-05-21 19:25:00 [facility] Raul BMI Calculated 2019-05-21 19:25:00 Memori al Raul Height 2019-03-21 19:45:00 147.32 cm [facility] [place] Weight 2019-03-21 19:45:00 [facility] Raul BMI Calculated 2019-03-21 19:45:00 Memori al [place] Respitory Rate 2019-03-21 19:45:00 Memori al [place] Heart Rate 2019-03-21 19:45:00 [facility] Raul Systolic (mm Hg) 2019-03-21 19:45:00 Jose Francisco rial [place] Diastolic (mm Hg) 2019-03-21 19:45:00 Mem orial Raul Height 2019-02-21 20:01:00 149.86 cm [facility] [place] Weight 2019-02-21 20:01:00 [facility] [place] BMI Calculated 2019-02-21 20:01:00 Memori al Raul Respitory Rate 2019-02-21 20:01:00 Memori al Raul Heart Rate 2019-02-21 20:01:00 [facility] Raul Systolic (mm Hg) 2019-02-21 20:01:00 Jose Francisco rial [place] Diastolic (mm Hg) 2019-02-21 20:01:00 Mem orial [place] Procedures This patient has no known procedures. Encounters Start End Encounter Admission Attending Care Care Encounter Source Date/Time Date/Time Type Type Clinicians Facility Department ID 2021-02-08 2021-02-08 [facility] [id number] 2021-01-28 2021-01-29 Outpatient MHMISCHER MHMISCHER [id number] 09:05:24 23:59:59 01 2021-01-14 2021-01-14 Outpatient Solitario, DMG DMG [id number] 00:00:00 00:00:00 Caitlyn [id number] Radha [id number] 2020-12-24 2020-12-24 Outpatient PRUDENCIO GarciaMISCHER MHMISCHER [id number] 13:45:00 23:59:59 Jeffrey Shafer 2020-12-09 2020-12-09 [facility] [id number] [facility] 2020-12-09 2020-12-09 [facility] [id number] [facility] 2020-11-30 2020-11-30 Outpatient [facility] [id number] [facility] 2020-11-23 2020-11-24 Outpatient MHMISCHER MHMISCHER [id number] 11:49:36 23:59:59 00 2020-10-28 2020-10-28 Outpatient [facility] [id number] [facility] 2020-10-25 2020-10-25 Outpatient [facility] [id number] [facility] 2020-10-11 2020-10-11 Outpatient PRUDENCIO GarciaMISCHER MHMISCHER [id number] 15:15:00 15:15:00 Jeffrey [facility] 2020-09-29 2020-09-29 Outpatient [facility] [id number] [facility] 2020-09-04 2020-09-06 Outpatient Nae, [facility] [id number] 20:36:00 15:43:00 Vincent Sage 2020-09-04 2020-09-04 Outpatient Nae [facility] [id number] 20:36:00 20:36:00 Vincent Sage 2020-08-24 2020-08-24 Outpatient GOSIA GarciaSCHER MHMISCHER [id number] 13:15:00 13:15:00 Jeffrey 08 [facility] 2020-06-28 2020-06-28 Emergency [facility] [id number] 11:51:00 15:02:00 Sariah Gutierrez [id number] [place] [id number] [place] [id number] 2020-05-25 2020-05-25 Outpatient PRUDENCIO GarciaMISCHER MHMISCHER [id number] 13:45:00 23:59:59 Jeffrey 07 [facility] 2020-03-30 2020-03-30 Outpatient PRUDENCIO GarciaMISCHER MHMISCHER [id number] 15:15:00 15:15:00 Jeffrey 05 [facility] 2020-03-24 2020-03-24 Outpatient GOSIA GarciaSCHER MHMISCHER [id number] 09:00:00 23:59:59 Jeffrey 06 [facility] 2020-02-19 2020-02-19 Emergency [facility] [id number] 14:18:56 16:04:00 Maria Luisa Dimitri Gutierrez [id number] [place] [id number] [place] [id number] 2019-12-09 2019-12-10 Emergency [facility] [id number] 21:28:34 00:05:00 Jorge [place] [id number] [place] [id number] [place] [id number] 2019-09-16 2019-09-16 Outpatient PRUDENCIO GarciaMISCHER MHMISCHER [id number] 15:00:00 15:00:00 Jeffrey 04 [facility] 2019-07-24 2019-07-24 Outpatient PRUDENCIO GarciaMISCHER MHMISCHER [id number] 14:15:00 23:59:59 Jeffrey 03 [place] 2019-05-21 2019-05-21 Outpatient PRUDENCIO GarciaMISCHER MHMISCHER [id number] 14:30:00 23:59:59 Jeffrey 02 [place] 2019-03-21 2019-03-21 Outpatient PRUDENCIO GarciaMISCHER MHMISCHER [id number] 14:30:00 23:59:59 Jeffrey 01 [place] 2019-02-21 2019-02-21 Outpatient PRUDENCIO GarciaMISCHER MHMISCHER [id number] 15:00:00 23:59:59 Jeffrey 00 [facility] Results Test Description Test Time Test Comments Results Result Comments Source CHEM PANEL 2020-09-06 66 [facility] Jessie nn 10:24:00 CHEM PANEL 2020-09-06 19 [facility] Jessie nn 10:24:00 CHEM PANEL 2020-09-06 1.82 [facility] Jessie nn 10:24:00 CHEM PANEL 2020-09-06 139 [facility] Jessie nn 10:24:00 CHEM PANEL 2020-09-06 4.2 [facility] Jessie nn 10:24:00 CHEM PANEL 2020-09-06 105 [facility] Jessie nn 10:24:00 CHEM PANEL 2020-09-06 28 [facility] Jessie nn 10:24:00 CHEM PANEL 2020-09-06 8.2 [facility] Jessie nn 10:24:00 CHEM PANEL 2020-09-06 10.2 [facility] Jessie nn 10:24:00 CHEM PANEL 2020-09-06 26 [facility] Jessie nn 10:24:00 HEMATOLOGY 2020-09-06 70.6 [facility] [place] nn 10:24:00 HEMATOLOGY 2020-09-06 13.2 [facility] [place] nn 10:24:00 HEMATOLOGY 2020-09-06 10.9 [facility] [place] nn 10:24:00 HEMATOLOGY 2020-09-06 4.6 [facility] [place] nn 10:24:00 HEMATOLOGY 2020-09-06 0.7 [facility] [place] nn 10:24:00 HEMATOLOGY 2020-09-06 5.3 [facility] [place] nn 10:24:00 HEMATOLOGY 2020-09-06 1.0 [facility] [place] nn 10:24:00 HEMATOLOGY 2020-09-06 0.8 [facility] [place] nn 10:24:00 HEMATOLOGY 2020-09-06 0.3 [facility] [place] nn 10:24:00 HEMATOLOGY 2020-09-06 0.1 [facility] [place] nn 10:24:00 HEMATOLOGY 2020-09-06 7.5 [facility] [place] nn 10:24:00 HEMATOLOGY 2020-09-06 3.85 [facility] Jessie nn 10:24:00 HEMATOLOGY 2020-09-06 10.6 [facility] [place]ie nn 10:24:00 HEMATOLOGY 2020-09-06 32.1 [facility] [place]ie nn 10:24:00 HEMATOLOGY 2020-09-06 83.5 [facility] Jessie nn 10:24:00 HEMATOLOGY 2020-09-06 10:24:00 Test Item Value Reference Range Interpretation Comme nts MCH (test code = MCH) 27.7 pg 27.0-31.0 [facility] [id number] 10:24:0033.1[facility] 2020-09-06 10:24:0016.8[facility] [id number] 10:24:46838Tioquotl [id number] 10:24:008.4[facility] HermannCHEM [id number] 09:53:132.2[facility] HermannCHEM [id number] 09:53:132.9[facility] HermannCHEM [id number] 09:53:86588Vnlqcuyg HermannCHEM [id number] 09:53:1317 [facility]annCHEM [id number] 09:53:131.51[facility] HermannCHEM PANEL 2020-09-05 09:53:08437Uvjrqrdv HermannCHEM [id number] 09:53:133.5[facility] HermannCHEM [id number] 09:53:87319Kelkfbpg HermannCHEM NGCMH6405-12-69 09:53:1329[facility] HermannCHEM UNSUM2172-22-37 09:53:138.3[facility] HermannCHEM ITFFO9403-64-86 09:53:138.5[facility] HermannCHEM MHNSX3213-94-85 09:53:1333 [facility] YsmavtrWVVULMQCLD7750-90-35 09:53:138.7[facility] HermannHEMATOLOGY 2020-09-05 09:53:133.96[facility] AtqparlXDVULRGNVR7307-66-35 09:53:1310.7[facility] NuocdjdLMNNHESITS7523-68-99 09:53:1332.8[facility] QwpbdccRQSMBCDRNK7931-34-21 09:53:1383.0[facility] MsqhcezXONVILTJXM5226-97-20 09:53:13 Test Item Value Reference Range Interpretation Comments MCH (test code = MCH) 26.9 pg 27.0-31.0 [facility] XedrdamLVWEFLHOZC1782-95-90 09:53:1332.4[facility] HermannHEMATOLOGY 2020-09-05 09:53:1316.5[facility] PgursweMEZEKEDQKY2435-26-67 09:53:51730Hggrpcir OwbatmzBQICYDLAIP2713-11-63 09:53:137.5[facility] ZcswwqhUSZOTGGIPJ8572-13-69 09:53:137.2[facility] AwspfafWPRKMWDBHD9470-69-66 09:53:130.9[facility] QKMXNQQTKM5856-25-67 09:53:130.5[facility] TswbsrwEUYAITURCF9716-26-29 09:53:130.1 [facility] HixxaypQIKRSBCXMW9495-08-40 09:53:1383.0[facility]annHEMATOLOGY 2020-09-05 09:53:130.0[facility] ZlwtpwsTIWILRFWEJ9628-99-76 09:53:1310.0[facility] QbuedfcYTINDIIDWF7548-09-75 09:53:136.0[facility] GwuxxkbMQIWMYBZTK3983-61-33 09:53:131.0[facility] WlvihkyRBOISQQUIU1793-54-30 09:53:130.0[facility] TEYCFZYLHV4432-03-87 09:53:13Normal (09/05/20 3:53 AM)[facility]ann[facility]MATOLOGY 2020-09-05 09:53:13Normal (09/05/20 3:53 AM)[facility] JfropofIRQXBOYVAC3787-88-97 09:53:00Not Detected (09/05/20 3:53 AM)[facility]annCARDIAC QFKSMXE0793-90-77 04:34:00<0.02[facility] HermannCHEM YSFRQ3953-84-89 04:34:29608Ewijosgh [place] CHEM AQIWT7186-64-56 04:34:0017[facility] HermannCHEM TUCUE5110-05-72 04:34:001.51 [facility]annCHEM MPFQU0680-41-00 04:34:43329Scimttqv HermannCHEM PANEL 2020-09-05 04:34:004.0[facility] HermannCHEM GDRXS1616-70-12 04:34:25274Tgpcjwir HermannCHEM ALYOW1231-56-45 04:34:0030[facility] HermannCHEM GHFAN6909-27-08 04:34:007.8[facility] HermannCHEM MHNBK6958-06-98 04:34:008.0[facility]annCHEM HMAXP6297-41-52 04:34:0033[facility] LheqypuEPGNFCGTES2262-10-96 04:34:009.7 [facility] MskstteUOSAEXSWGF8412-08-44 04:34:003.96[facility]annHEMATOLOGY 2020-09-05 04:34:0010.6[facility] HdvfqzoNXDOEFXSNR0105-96-64 04:34:0032.6[facility] QtwubzyGCEEBVQPVF4068-16-88 04:34:0082.3[facility] PmtpdssQXOJTXHBXF6673-85-21 04:34:00 Test Item Value Reference Range Interpretation Comments MCH (test code = MCH) 26.6 pg 27.0-31.0 [facility] OmjyzezBSEQVLAGVE0586-21-07 04:34:0032.4[facility]annHEMATOLOGY 2020-09-05 04:34:0016.8[facility] BxpkeizBYTVNIZJBM1819-06-91 04:34:20273Exqdupna XwwpayuMMSJWUOJAR6468-09-84 04:34:008.0[facility] VpcqwdwBMQAOFQHHM9229-59-19 04:34:00 Test Item Value Reference Range Interpretation Comments PT (test code = PT) 14.7 s 12.0-14.7 [facility] XozmjxxIAHNMXJNZR8201-71-61 04:34:00 Test Item Value Reference Range Interpretation Comments INR (test code = INR) 1.14 1 0.85-1.17 [facility] YtooxfnXNALZHAEOL3856-77-71 04:34:00 Test Item Value Reference Range Interpretation Comments PTT (test code = PTT) 31.2 s 22.9-35.8 [facility] CmbopykTKKWBTGMHU6062-61-13 04:34:0073.9[facility]annHEMATOLOGY 2020-09-05 04:34:0011.0[facility] JrxamwsUSWOGSBDDC6069-14-51 04:34:0013.6[facility] RhtphfcNZVAVJHDNF6406-69-53 04:34:000.7[facility] UpqkxjxIPCVKVMQCQ2968-12-74 04:34:000.8[facility] WijqykvNLQGFWFEDW0820-41-22 04:34:007.2[facility] [place] SIENCZNILI4019-05-55 04:34:001.1[facility] SmubnkxPDHCUJOOTU2723-98-44 04:34:001.3 [facility] IcjcgpuVMEYORITYY3271-06-03 04:34:000.1[facility]annHEMATOLOGY 2020-09-05 04:34:000.1[facility] [place]
[2021-03-08] MEDS ORDERED: predniSONE 20 MG TAB ONE (15:47)
[2021-03-08] MEDS ORDERED: ALBUTEROL 2.5 MG/3 ML NEB SOL ONE (15:47)
[2021-03-08] MEDS ORDERED: IPRATROPIUM BROM 0.5MG/2.5ML ONE (15:47)
--- NOTE | 2021-03-08 15:55 | RAD REPORT ---
EXAM DESCRIPTION: Vishnu Single View03/08/2021 3:40 pm CLINICAL HISTORY: Cough COMPARISON: 2019 FINDINGS: The lungs appear clear of acute infiltrate. The heart is normal size IMPRESSION: No acute abnormalities displayed
[2021-03-08] MEDS ORDERED: HYDROCODONE/CHLORPHEN 5 ML/OSYR ONE (16:00)
[2021-03-08 16:38] LABS: Protime INR 0.95
[2021-03-08 16:58] LABS: ALT/SGPT 16 U/L (12-78); AST/SGOT 11 U/L (15-37); Albumin 3.2 g/dL (3.4-5.0); Alkaline Phosphatase 98 U/L (45-117); BUN Blood Urea Nitrogen 19 mg/dL (7-18); Bicarbonate 28 mmol/L (21-32); Bilirubin Direct < 0.1 mg/dL (0-0.2); Bilirubin Total 0.3 mg/dL (0.2-1.0); Glucose Level 135 mg/dL (74-106); Magnesium 2.6 mg/dL (1.8-2.4); NT PRO-BNP 945 pg/mL (<450); Potassium 4.4 mmol/L (3.5-5.1); Protein, Total 7.1 g/dL (6.4-8.2); Sodium Level 142 mmol/L (136-145); Troponin (Emerg Dept Use Only) < 0.02 ng/mL (0.0-0.045)
[2021-03-08 17:09] LABS: Absolute Lymphocytes (CBC) 1.2 K/uL (0.7-4.9); Hematocrit 35.9 % (36.0-45.0); MPV 8.7 fL (7.6-11.3); RBC Red Blood Cell Count 4.15 M/uL (3.86-4.86)
[2021-03-08 17:20] LABS: Urine Blood 2+ (Negative); Urine Glucose Negative (Negative); Urine Protein 3+ (Negative); Urine Specific Gravity >=1.030 (1.005-1.030)
[2021-03-08 17:33] LABS: Blood Morphology Comment NOT SEEN (NOT SEEN); Platelet Estimate ADEQ
[2021-03-08 17:34] LABS: Urine Bacteria >50 /HPF (<20)
--- NOTE | 2021-03-08 18:18 | EDPHYS ---
Physician Documentation [facility] Name: Radha Bentley Age: 80 yrs Sex: Female : 1940 Arrival Date: 03/08/2021 Time: 14:28 Bed 16 Private MD: ED Physician González Shah HPI: 03/08 15:16 This 80 yrs old Female presents to ER via Wheelchair with complaints of pm1 Cough, Breathing Difficulty. 15:16 The patient or guardian reports cough, with productive sputum, that is yellow. Onset: pm1 The symptoms/episode began/occurred 2 day(s) ago. Severity of symptoms: in the emergency department the symptoms are actually worse. Modifying factors: The symptoms are alleviated by inhaler, albuterol, the symptoms are aggravated by nothing. Associated signs and symptoms: Pertinent positives: burning with urination, Pertinent negatives: chest pain, diarrhea, fever, nausea, rhinorrhea, sore throat, vomiting. The patient has experienced similar episodes in the past, a few times. The patient has not recently seen a physician. Historical: - Allergies: 14:50 Band-aid adhesive; ph 14:50 Avelox; ph - PMHx: 14:50 ADD/ADHD; COPD; Diverticulitis; Heart Murmur; Hyperlipidemia; Hypertension; ph Hypothyroidism; Pneumonia; - PSHx: 14:50 Cholecystectomy; Knee surgery; shoulder; breast reduction; abdominal surgery; ph - Immunization history:: Client reports receiving the 2nd dose of the Covid vaccine. - Social history:: Smoking status: Patient denies any tobacco usage or history of. ROS: 15:16 Constitutional: Negative for fever, chills, and weight loss, Eyes: Negative for injury, pm1 pain, redness, and discharge, ENT: Negative for injury, pain, and discharge, Neck: Negative for injury, pain, and swelling. 15:16 Cardiovascular: Negative for chest pain, palpitations, and edema. 15:16 Abdomen/GI: Negative for abdominal pain, nausea, vomiting, diarrhea, and constipation, Back: Negative for injury and pain. 15:16 MS/Extremity: Negative for injury and deformity, Skin: Negative for injury, rash, and discoloration. 15:16 Neuro: Negative for headache, weakness, numbness, tingling, and seizure. 15:16 Respiratory: Positive for cough, with yellow sputum, shortness of breath. 15:16 : Positive for burning with urination, Negative for flank pain. Exam: 15:16 Constitutional: This is a well developed, well nourished patient who is awake, alert, pm1 and in no acute distress. Head/Face: Normocephalic, atraumatic. 15:16 Back: No spinal tenderness. No costovertebral tenderness. Full range of motion. Skin: Warm, dry with normal turgor. Normal color with no rashes, no lesions, and no evidence of cellulitis. MS/ Extremity: Pulses equal, no cyanosis. Neurovascular intact. Full, normal range of motion. 15:16 Eyes: Exam is negative for acute changes, Periorbital structures: appear normal, Extraocular movements: no acute changes, Conjunctiva: no acute changes. 15:16 ENT: Mouth: Lips: normal, Oral mucosa: normal, pink and intact, moist. 15:16 Cardiovascular: Rate: normal, Rhythm: regular, Pulses: no pulse deficits are appreciated. 15:16 Respiratory: the patient does not display signs of respiratory distress, Respirations: normal, Breath sounds: wheezing: expiratory is heard diffusely. 15:16 Abdomen/GI: Inspection: abdomen appears normal, Palpation: abdomen is soft and non-tender, in all quadrants. 15:16 Neuro: Orientation: is normal, Mentation: is normal, Motor: is normal, moves all fours. Vital Signs: 14:47 BP 136 / 66; Pulse 55; Resp 18; Temp 98.4(O); Pulse Ox 96% on R/A; ph 16:17 BP 152 / 73; Pulse 50; Resp 20; Pulse Ox 100% ; bp 17:52 BP 168 / 62; Pulse 55; Resp 18; Pulse Ox 92% ; bp 18:39 BP 174 / 62; Pulse 70; Resp 19; Pulse Ox 94% ; bp MDM: 14:57 Patient medically screened. pm1 18:16 Data reviewed: vital signs. 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 18:38 ED course: SENIOR TAX MANAGER Aware reviewed last script 01/25/2021. pm1 03/08 15:13 Order name: Basic Metabolic Panel pm1 03/08 15:13 Order name: CBC with Diff pm03/08 15:13 Order name: LFT's pm03/08 15:13 Order name: Magnesium; Complete Time: 18:11 pm1 03/08 15:13 Order name: NT PRO-BNP; Complete Time: 18:11 pm1 03/08 15:13 Order name: PT-INR; Complete Time: 16:48 pm1 03/08 15:13 Order name: Troponin (emerg Dept Use Only); Complete Time: 18:11 pm1 03/08 15:13 Order name: Flu; Complete Time: 16:48 pm1 03/08 15:14 Order name: Basic Metabolic Panel; Complete Time: 18:11 EDMS 03/08 15:14 Order name: CBC with Automated Diff; Complete Time: 18:11 EDMS 03/08 15:14 Order name: Liver (Hepatic) Function; Complete Time: 18:11 EDMS 08 16:48 Order name: Urine Microscopic Only pm03/08 16:49 Order name: Urine Microscopic Only; Complete Time: 18:11 EDMS 08 15:13 Order name: XRAY Chest (1 view); Complete Time: 15:56 pm1 03/08 15:13 Order name: EKG; Complete Time: 15:14 pm1 03/08 15:13 Order name: Cardiac monitoring; Complete Time: 15:46 pm03/08 15:13 Order name: EKG - Nurse/Tech; Complete Time: 15:46 pm03/08 15:13 Order name: IV Saline Lock; Complete Time: 16:12 pm03/08 15:13 Order name: Labs collected and sent; Complete Time: 16:12 pm1 03/08 15:13 Order name: O2 Per Protocol; Complete Time: 16:12 pm03/08 15:13 Order name: O2 Sat Monitoring; Complete Time: 16:12 pm1 08 17:20 Order name: Urine Dipstick-Ancillary; Complete Time: 18:11 EDMS 03/08 17:22 Order name: SARS-COV-2 RT PCR; Complete Time: 18:11 EDMS 03/08 17:33 Order name: Manual Differential; Complete Time: 18:11 EDMS 03/08 17:35 Order name: Urine Culture EDNC 03/08 16:40 Order name: Labs - recollect needed: recollect lav top; Complete Time: 17:10 bd 03/08 16:48 Order name: Urine Dipstick-Ancillary (obtain specimen); Complete Time: 17:21 pm1 Administered Medications: 15:30 Drug: predniSONE 60 mg Route: PO; bp 17:10 Follow up: Response: No adverse reaction bp 15:30 Drug: Albuterol - atroVENT (ipratropium) (3:1) (2.5 mg - 0.5 mg) 3 ml Route: Nebulizer; bp 17:11 Follow up: Response: Marked relief of symptoms bp 15:30 Drug: Tussionex Pennkinetic ER (chlorpheniramine-hydrocodone) 5 ml Route: PO; bp 17:12 Follow up: Response: Marked relief of symptoms bp 18:30 Drug: Rocephin - (cefTRIAXone) 1 grams Route: IVPB; Infused Over: 30 mins; Site: left bp antecubital; 19:07 Follow up: IV Status: Completed infusion; IV Intake: 50ml bp Disposition: 03/09 06:59 Co-signature as Attending Physician, González Shah MD. rn Disposition: 03/08/21 18:17 Discharged to Home. Impression: Chronic obstructive pulmonary disease with (acute) exacerbation. - Condition is Stable. - Discharge Instructions: Urinary Tract Infection, Adult, Chronic Obstructive Pulmonary Disease Exacerbation. - Prescriptions for Augmentin 875- 125 mg Oral Tablet - take 1 tablet by ORAL route every 12 hours for 10 days; 20 tablet. Zithromax Z- Diego 250 mg Oral Tablet - take 1 tablet by ORAL route as directed for 5 days Day 1 - take two (2) tablets one time. Day 2, 3, 4 , 5 take one (1) tablet once daily.; 6 tablet. Prednisone 20 mg Oral Tablet - take 3 tablet by ORAL route once daily for 5 days; 15 tablet. Guaifenesin AC 10- 100 mg/5 mL Oral Liquid - take 10 milliliter by ORAL route every 4 hours As needed; 240 milliliter. - Medication Reconciliation Form, Thank You Letter, Antibiotic Education, Prescription Opioid Use form. - Follow up: Emergency Department; When: As needed; Reason: Worsening of condition. Follow up: Private Physician; When: 2 - 3 days; Reason: Recheck today's complaints, Continuance of care, Re-evaluation by your physician. - Problem is new. - Symptoms have improved. Signatures: Dispatcher [employer] EDNC Kaia Osorio González Cisneros MD MD rn Gia De Jesus, RN RN ph Toy Saul, ALUMINUM POLISHER ALUMINUM POLISHER pm1 Anatoly Castillo RN RN bp Corrections: (The following items were deleted from the chart) 03/08 16:27 15:14 CORONAVIRUS+MR.LAB.BRZ ordered. [facility] EDNC 19:14 18:17 03/08/2021 18:17 Discharged to Home. Impression: Chronic obstructive pulmonary bp disease with (acute) exacerbation. Condition is Stable. Forms are Medication Reconciliation Form, Thank You Letter, Antibiotic Education, Prescription Opioid Use. Follow up: Emergency Department; When: As needed; Reason: Worsening of condition. Follow up: Private Physician; When: 2 - 3 days; Reason: Recheck today's complaints, Continuance of care, Re-evaluation by your physician. Problem is new. Symptoms have improved. pm1
--- NOTE | 2021-03-08 18:18 | ER ---
Nurse's Notes [facility] Name: Radha Bentley Age: 80 yrs Sex: Female : 1940 Arrival Date: 03/08/2021 Time: 14:28 Bed 16 Private MD: Diagnosis: Chronic obstructive pulmonary disease with (acute) exacerbation Presentation: 03/08 14:47 Chief complaint: Patient states: Cough, congestion, green phlegm, and SOB since ph yesterday, hx of COPD. Coronavirus screen: congestion, cough unrelated to allergies, shortness of breath, Client presents with at least one sign or symptom that may indicate coronavirus-19. Standard/surgical mask placed on the client. Provider contacted for isolation considerations. Ebola Screen: No symptoms or risks identified at this time. Initial Sepsis Screen: Does the patient meet any 2 criteria? No. Patient's initial sepsis screen is negative. Does the patient have a suspected source of infection? Yes: Productive cough/pneumonia. Risk Assessment: Do you want to hurt yourself or someone else? Patient reports no desire to harm self or others. Onset of symptoms was March 08, 2021. 14:47 Method Of Arrival: Wheelchair 14:47 Acuity: VAIBHAV 3 ph Triage Assessment: 15:00 General: Appears distressed, uncomfortable, obese, Behavior is cooperative, appropriate bp for age, anxious. Pain: Denies pain. EENT: No deficits noted. Neuro: Level of Consciousness is awake, alert, obeys commands, Oriented to Appropriate for age. Cardiovascular: No deficits noted. Respiratory: Reports shortness of breath cough that is Breath sounds with wheezes bilaterally. Onset: The symptoms/episode began/occurred at an unknown time. the patient has moderate shortness of breath. GI: No signs and/or symptoms were reported involving the gastrointestinal system. : No signs and/or symptoms were reported regarding the genitourinary system. Derm: No deficits noted. Musculoskeletal: Circulation, motion, and sensation intact. Range of motion: intact in all extremities. Historical: - Allergies: 14:50 Band-aid adhesive; ph 14:50 Avelox; ph - PMHx: 14:50 ADD/ADHD; COPD; Diverticulitis; Heart Murmur; Hyperlipidemia; Hypertension; ph Hypothyroidism; Pneumonia; - PSHx: 14:50 Cholecystectomy; Knee surgery; shoulder; breast reduction; abdominal surgery; ph - Immunization history:: Client reports receiving the 2nd dose of the Covid vaccine. - Social history:: Smoking status: Patient denies any tobacco usage or history of. Screenin:00 Abuse screen: Denies threats or abuse. Denies injuries from another. Nutritional bp screening: No deficits noted. Tuberculosis screening: No symptoms or risk factors identified. Fall Risk None identified. Assessment: 15:00 General: SEE TRIAGE NOTE. Cardiovascular: Rhythm is sinus arrythmia. bp 15:00 Respiratory: Airway is patent Respiratory effort is even, labored. bp 16:50 Reassessment: Patient and/or family updated on plan of care and expected duration. Pain bp level reassessed. Patient is alert, oriented x 3, equal unlabored respirations, skin warm/dry/pink. ALL CURRENT ORDERS COMPLETE Patient states symptoms have improved. 17:52 Reassessment: Patient and/or family updated on plan of care and expected duration. Pain bp level reassessed. Patient is alert, oriented x 3, equal unlabored respirations, skin warm/dry/pink. Patient states symptoms have improved. 18:40 Reassessment: D/C ON HOLD FOR IV ABX AND FAMILY TRANSPORT. bp 19:05 Reassessment: PT D/C HOME VIA W/C WITH FAMILY, DX WITH COPD EXACERBATION. bp Vital Signs: 14:47 BP 136 / 66; Pulse 55; Resp 18; Temp 98.4(O); Pulse Ox 96% on R/A; ph 16:17 BP 152 / 73; Pulse 50; Resp 20; Pulse Ox 100% ; bp 17:52 BP 168 / 62; Pulse 55; Resp 18; Pulse Ox 92% ; bp 18:39 BP 174 / 62; Pulse 70; Resp 19; Pulse Ox 94% ; bp ED Course: 14:28 Patient arrived in ED. ds1 14:49 Triage completed. ph 14:50 Arm band placed on Patient placed in waiting room. X-ray ordered. ph 14:55 Toy Saul NP is PHCP. pm1 14:55 González Shah MD is Attending Physician. pm1 15:00 Patient has correct armband on for positive identification. Bed in low position. Call bp light in reach. Side rails up X2. 15:23 Anatoly Castillo, ALAN is Primary Nurse. bp 15:30 Inserted saline lock: 20 gauge in left antecubital area, using aseptic technique. Blood bp collected. 15:40 XRAY Chest (1 view) In Process Unspecified. EDMS 15:42 EKG done, by ED staff, reviewed by Toy Saul NP. dh3 17:15 Urine collected: clean catch specimen, cloudy. dh3 17:21 Urine Microscopic Only Sent. dh3 19:05 No provider procedures requiring assistance completed. IV discontinued, intact, bp bleeding controlled, No redness/swelling at site. Pressure dressing applied. Administered Medications: 15:30 Drug: predniSONE 60 mg Route: PO; bp 17:10 Follow up: Response: No adverse reaction bp 15:30 Drug: Albuterol - atroVENT (ipratropium) (3:1) (2.5 mg - 0.5 mg) 3 ml Route: Nebulizer; bp 17:11 Follow up: Response: Marked relief of symptoms bp 15:30 Drug: Tussionex Pennkinetic ER (chlorpheniramine-hydrocodone) 5 ml Route: PO; bp 17:12 Follow up: Response: Marked relief of symptoms bp 18:30 Drug: Rocephin - (cefTRIAXone) 1 grams Route: IVPB; Infused Over: 30 mins; Site: left bp antecubital; 19:07 Follow up: IV Status: Completed infusion; IV Intake: 50ml bp Intake: 19:07 IV: 50ml; Total: 50ml. bp Outcome: 18:17 Discharge ordered by MD. pm1 19:05 Discharged to home via wheelchair, with family. bp 19:05 Condition: stable 19:05 Discharge instructions given to patient, Instructed on discharge instructions, follow up and referral plans. medication usage, Demonstrated understanding of instructions, follow-up care, medications, Prescriptions given X 4. 19:14 Patient left the ED. bp Addendum: 03/10/2021 10:19 Addendum: Culture Results: Positive urine culture. No further action required. Bacteria i w sensitive to prescribed antibiotic. Signatures: Dispatcher [employer] EDVA Clara Carroll 1 Lula Thakur RN RN iw Hall, Patricia, RN RN ph Marinas, Patrick, NP VASCULAR SONOGRAPHER pm1 Reba Vázquez 3 Anatoly Castillo RN RN bp
[2021-03-08] MEDS ORDERED: CEFTRIAXONE/SWI 1gm 1 GM/10 ML SYR ONE (18:53)
[2021-03-08] MEDS ORDERED: NA CHLORIDE 0.9% 100 ML ONE (18:53)
[2021-03-08 19:37] VITALS: TEMP 98.4
[2021-03-08 19:41] VITALS: BP 174/62; O2SAT 94
--- NOTE | 2021-03-09 07:27 | EKG ---
Test Date: 2021-03-08 Test Time: 15:32:41 Casting Inspector: STEVEN MEASUREMENT RESULTS: Intervals: Rate: 50 TN: 232 QRSD: 112 QT: 472 QTc: 430 [place]: P: 61 TN: 232 QRS: -35 T: 43 INTERPRETIVE STATEMENTS: Sinus bradycardia with 1st degree AV block Left axis deviation Voltage criteria for left ventricular hypertrophy Nonspecific T wave abnormality Abnormal ECG Compared to ECG 09/04/2020 17:32:23 Left-axis deviation now present Left ventricular hypertrophy now present T-wave abnormality now present Sinus rhythm no longer present Left anterior fascicular block no longer present Prolonged QT interval no longer present Electronically Signed On 03-09-21 07:26:24 CDT by Omid Mckeon
== END 2021-03-08 19:14 | disposition home or self-care (01) ==
LOC: ER 14:26
DX: J44.1 Chronic obstructive pulmonary disease with (acute) exacerbation (principal); Z20.822 Contact with and (suspected) exposure to COVID-19; I10 Essential (primary) hypertension; Z88.6 Allergy status to analgesic agent; Z91.048 Other nonmedicinal substance allergy status
CPT/HCPCS: 96365; 93005; 87088; 85025; 87086; 80048; 36415; 83735; 85610; 80076; 84484; 83880; 87804 ×2; 71045; 99285; U0003; J0696; 81003; 81015; 87077; 87186; J7512

== ENCOUNTER 2021-06-15 21:46 | Inpatient (IN) | payer OTHER ==
[2021-06-16 00:10] LABS: Arterial Blood Carboxyhemoglob 1.5 % (0-1.5); Blood Gas Oxyhemoglobin 92.7 % (94-97); Blood O2 Saturation 95.2 % (92-98.5)
--- NOTE | 2021-06-16 00:21 | ER ---
Nurse's Notes [facility] Name: Radha Bentley Age: 80 yrs Sex: Female : 1940 Arrival Date: 06/15/2021 Time: 21:51 Bed 24 Private MD: Diagnosis: Dyspnea;COPD/ Chronic obstructive pulmonary disease, unspecified;Obesity, unspecified;Unspecified kidney failure-INSUFFICENCY Presentation: 06/15 22:12 Chief complaint: Patient states: PT states she is having increased SOB. States she has wg been without power and A/C and when it got dark tonight her breathing got worse. Pt states she has COPD and is not on oxygen at home. Pt states she also has been having swelling in her legs and is on lasix but thinks they may be getting worse. Pt denies N/V/D, CP, dizziness. Pt reports having a headache. Pt takes a rescue albuterol inhaler at home but it didn't help. Couldn't take a nebulizer treatment due to the loss of power. Coronavirus screen: Vaccine status: Patient reports receiving the 2nd dose of the covid vaccine. Date January 06, 2021 phizer Client denies travel out of the [place] in the last 14 days. At this time, the client does not indicate any symptoms associated with coronavirus-19. Ebola Screen: Patient negative for fever greater than or equal to 101.5 degrees Fahrenheit, and additional compatible Ebola Virus Disease symptoms Patient denies exposure to infectious person. Patient denies travel to an Ebola-affected area in the 21 days before illness onset. No symptoms or risks identified at this time. Initial Sepsis Screen: Does the patient meet any 2 criteria? No. Patient's initial sepsis screen is negative. Does the patient have a suspected source of infection? No. Patient's initial sepsis screen is negative. Risk Assessment: Do you want to hurt yourself or someone else? Patient reports no desire to harm self or others. 22:12 Method Of Arrival: Ambulatory 22:12 Acuity: VAIBHAV 3 06/16 21:00 Onset of symptoms was June 16, 2021. Triage Assessment: 06/15 22:18 General: Appears uncomfortable, obese, well groomed, Behavior is cooperative, anxious. wg Pain: Complains of pain in headache Pain does not radiate. Pain currently is 2 out of 10 on a pain scale. Quality of pain is described as aching. EENT: No deficits noted. Neuro: No deficits noted. Cardiovascular: bilat leg edema. Respiratory: Reports shortness of breath Breath sounds with wheezes bilaterally. Onset: The symptoms/episode began/occurred gradually, the patient has mild shortness of breath. GI: No deficits noted. : No deficits noted. Derm: No deficits noted. Musculoskeletal: No deficits noted. Historical: - Allergies: 22:18 Avelox; wg 22:18 Band-aid adhesive; wg - Home Meds: 22:18 amlodipine [Active]; gabapentin Oral [Active]; bupropion HCl Oral [Active]; wg escitalopram oxalate Oral [Active]; Lasix Oral [Active]; - PMHx: 22:18 COPD; Hyperlipidemia; Hypertension; ADD/ADHD; Heart Murmur; Hypothyroidism; wg - Immunization history:: Adult Immunizations up to date. - Social history:: Smoking status: Patient denies any tobacco usage or history of. Patient uses alcohol, but reports only rare drinking. Patient/guardian denies using street drugs, IV drugs. Screenin/16 20:58 Abuse screen: Denies. wr 21:00 Nutritional screening: No deficits noted. wr 21:00 Fall Risk None identified. wr 21:02 Tuberculosis screening: No symptoms or risk factors identified. wr Assessment: 20:59 Cardiovascular: Rhythm is sinus rhythm. wr 21:00 Respiratory: No deficits noted. Respiratory effort is. wr Vital Signs: 06/15 22:12 BP 148 / 76; Pulse 79; Resp 22; Temp 98.5; Pulse Ox 95% on R/A; Weight 95.71 kg; Height 4 ft. 11 in. (149.86 cm); Pain 2/10; 06/16 00:00 BP 144 / 71; Pulse 79; Resp 22; Temp 98.2; Pulse Ox 100% on NC; wr 04:00 BP 151 / 72; Pulse 79; Resp 18; Temp 98.2; Pulse Ox 98% ; wr 04:00 BP 151 / 72; Pulse 91; Resp 18; Pulse Ox 62% ; wr 19:30 BP 158 / 65; Pulse 92; Resp 20; Temp 98.2; Pulse Ox 98% ; wr 06/15 22:12 Body Mass Index 42.62 (95.71 kg, 149.86 cm) ED Course: 06/15 21:51 Patient arrived in ED. wm 22:12 Ady Cuellar MD is Attending Physician. art 22:18 Triage completed. wg 22:18 Arm band placed on right wrist. wg 22:50 XRAY Chest (1 view) In Process Unspecified. EDMA 06/16 00:18 Aleksander Palma DO is Hospitalizing Provider. art 01:14 Lactate Sent. wr 01:14 Blood Culture Adult (2) Sent. wr 01:19 Magnesium Sent. wr 01:19 LFT's Sent. wr 01:25 ABG Sent. wr 08:18 Nicole Lucero is Primary Nurse. 1 20:59 Patient has correct armband on for positive identification. wr Administered Medications: 01:22 Discontinued: NS 0.9% 1000 ml IV at 125 ml/hr continuous [facility] 06/15 23:00 Drug: Xopenex (levalbuterol) 2.5 mg Route: Inhalation; wr 06/16 00:00 Drug: NS 0.9% 1000 ml Route: IV; Rate: 125 ml/hr; Site: right antecubital; wr 00:45 Drug: AtroVENT (ipratropium) Aerosol 0.5 mg Route: Inhalation; wr 00:45 Drug: Pepcid (famotidine) 20 mg Route: IVP; Site: right upper arm; wr 00:48 Drug: SOLU-Medrol (methylPrednisoLONE) 125 mg Route: IVP; Site: right antecubital; wr 01:25 Drug: Lasix (furosemide) 40 mg Route: IVP; Infused Over: 2 mins; Site: right wr antecubital; 03:45 Drug: Rocephin (cefTRIAXone) 1 grams Route: IV; Rate: calculated rate; Site: right hand;wr 05:16 Drug: Tylenol 1000 mg Route: PO; wr Outcome: 00:21 Decision to Hospitalize by Provider. art 20:59 Condition: stable wr 06/17 15:14 Patient left the ED. tr6 Signatures: Dispatcher [employer] EDMA Ady Cuellar MD MD cha Ramnanan, Tiffany, RN RN tr6 Tiarra Black Nicole Lucero [facility] Monroe Cooper RN Hernan Argueta Corrections: (The following items were deleted from the chart) 06/16 21:02 21:01 PMHx: Diverticulitis; wr wr 21:01 PMHx: Pneumonia; wr wr
--- NOTE | 2021-06-16 00:21 | EDPHYS ---
Physician Documentation [facility] Name: Radha Bentley Age: 80 yrs Sex: Female : 1940 Arrival Date: 06/15/2021 Time: 21:51 Bed 24 Private MD: ED Physician Ady Cuellar HPI: 06/15 22:40 This 80 yrs old Female presents to ER via Ambulatory with complaints of art Breathing Difficulty. 22:40 The patient has shortness of breath at rest, with light activity. Onset: The art symptoms/episode began/occurred 2 day(s) ago. Duration: The symptoms are continuous, and are steadily getting worse. The patient's shortness of breath is aggravated by coughing, is alleviated by application of supplemental oxygen. Associated signs and symptoms: Pertinent positives: non-productive cough. Severity of symptoms: At their worst the symptoms were moderate in the emergency department the symptoms are unchanged. The patient has experienced similar episodes in the past, multiple times. Historical: - Allergies: 22:18 Avelox; wg 22:18 Band-aid adhesive; wg - Home Meds: 22:18 amlodipine [Active]; gabapentin Oral [Active]; bupropion HCl Oral [Active]; wg escitalopram oxalate Oral [Active]; Lasix Oral [Active]; - PMHx: 22:18 COPD; Hyperlipidemia; Hypertension; ADD/ADHD; Heart Murmur; Hypothyroidism; wg - Immunization history:: Adult Immunizations up to date. - Social history:: Smoking status: Patient denies any tobacco usage or history of. Patient uses alcohol, but reports only rare drinking. Patient/guardian denies using street drugs, IV drugs. ROS: 22:41 Constitutional: Negative for fever, chills, and weight loss, Eyes: Negative for injury, art pain, redness, and discharge, ENT: Negative for injury, pain, and discharge, Neck: Negative for injury, pain, and swelling, Cardiovascular: Negative for chest pain, palpitations, and edema, Abdomen/GI: Negative for abdominal pain, nausea, vomiting, diarrhea, and constipation, Back: Negative for injury and pain, : Negative for injury, bleeding, discharge, and swelling, Skin: Negative for injury, rash, and discoloration, Neuro: Negative for headache, weakness, numbness, tingling, and seizure, Psych: Negative for depression, anxiety, suicide ideation, homicidal ideation, and hallucinations, Allergy/Immunology: Negative for hives, rash, and allergies, Endocrine: Negative for neck swelling, polydipsia, polyuria, polyphagia, and marked weight changes, Hematologic/Lymphatic: Negative for swollen nodes, abnormal bleeding, and unusual bruising. 22:41 Respiratory: Positive for cough, shortness of breath, at rest. 22:41 MS/extremity: Positive for decreased range of motion, pain, swelling, tenderness, of the right leg and left leg. Exam: 22:41 Constitutional: This is a well developed, well nourished patient who is awake, alert, art and in no acute distress. Head/Face: Normocephalic, atraumatic. Eyes: Pupils equal round and reactive to light, extra-ocular motions intact. Lids and lashes normal. Conjunctiva and sclera are non-icteric and not injected. Cornea within normal limits. Periorbital areas with no swelling, redness, or edema. ENT: Nares patent. No nasal discharge, no septal abnormalities noted. Tympanic membranes are normal and external auditory canals are clear. Oropharynx with no redness, swelling, or masses, exudates, or evidence of obstruction, uvula midline. Mucous membranes moist. Neck: Trachea midline, no thyromegaly or masses palpated, and no cervical lymphadenopathy. Supple, full range of motion without nuchal rigidity, or vertebral point tenderness. No Meningismus. Chest/axilla: Normal chest wall appearance and motion. Nontender with no deformity. No lesions are appreciated. Cardiovascular: Regular rate and rhythm with a normal S1 and S2. No gallops, murmurs, or rubs. Normal PMI, no JVD. No pulse deficits. Abdomen/GI: Soft, non-tender, with normal bowel sounds. No distension or tympany. No guarding or rebound. No evidence of tenderness throughout. Back: No spinal tenderness. No costovertebral tenderness. Full range of motion. Female : Normal external genitalia. Skin: Warm, dry with normal turgor. Normal color with no rashes, no lesions, and no evidence of cellulitis. Neuro: Awake and alert, GCS 15, oriented to person, place, time, and situation. Cranial nerves II-XII grossly intact. Motor strength 5/5 in all extremities. Sensory grossly intact. Cerebellar exam normal. Normal gait. Psych: Awake, alert, with orientation to person, place and time. Behavior, mood, and affect are within normal limits. 22:41 Respiratory: mild respiratory distress is noted, Respirations: labored breathing, that is mild, Breath sounds: decreased breath sounds, that are moderate, rhonchi, that are mild, stridor, is not appreciated, Respiratory rate: 22 22:53 ECG was reviewed by the Attending Physician. [facility] Vital Signs: 22:12 BP 148 / 76; Pulse 79; Resp 22; Temp 98.5; Pulse Ox 95% on R/A; Weight 95.71 kg; Height wg 4 ft. 11 in. (149.86 cm); Pain 10; 06/16 00:00 BP 144 / 71; Pulse 79; Resp 22; Temp 98.2; Pulse Ox 100% on NC; wr 04:00 BP 151 / 72; Pulse 79; Resp 18; Temp 98.2; Pulse Ox 98% ; wr 04:00 BP 151 / 72; Pulse 91; Resp 18; Pulse Ox 62% ; wr 19:30 BP 158 / 65; Pulse 92; Resp 20; Temp 98.2; Pulse Ox 98% ; wr 06/15 22:12 Body Mass Index 42.62 (95.71 kg, 149.86 cm) wg MDM: 06/15 22:27 Patient medically screened. art 22:51 Differential diagnosis: Anemia Anxiety Reaction asthma, Bronchitis CHF exacerbation, art Chronic Obstructive Pulmonary Disease Myocardial Infarction pulmonary edema, reactive airway disease, Unstable Angina. Antibiotic administration: Not indicated. Differential Diagnosis sepsis. The patient's Wells Deep Vein Thrombosis Score was calculated as follows: Total Score: 0-2 Pts- Low Risk. The patient's pulmonary embolism risk score was calculated as follows: Total Score: 0-2 points. This patient was found to be at low risk for a pulmonary embolism by using the Well's assessment criteria. Immunization status: Pneumococcal vaccine: Influenza vaccine: Data reviewed: vital signs, nurses notes, lab test result(s), EKG, radiologic studies, plain films. Data interpreted: electronic device monitor: rate is 79 beats/min, rhythm is normal sinus rhythm, Pulse oximetry: on room air is 95 %. Test interpretation: by ED physician or midlevel provider: ECG, plain radiologic studies. Counseling: I had a detailed discussion with the patient and/or guardian regarding: the historical points, exam findings, and any diagnostic results supporting the discharge/admit diagnosis, the presence of at least one elevated blood pressure reading (>120/80) during this emergency department visit, lab results, radiology results, the need for further work-up and treatment in the hospital. 06/15 22:14 Order name: Basic Metabolic Panel; Complete Time: 01:21 [facility] 06/15 22:14 Order name: CBC with Diff; Complete Time: 01:10 [facility] 06/15 22:14 Order name: LFT's; Complete Time: : [facility] 06/15 22:14 Order name: Magnesium; Complete Time: 01: [facility] 06/15 22:14 Order name: NT PRO-BNP; Complete Time: : [facility] 06/15 22:14 Order name: PT-INR; Complete Time: 01: [facility] 06/15 22:14 Order name: Troponin (emerg Dept Use Only); Complete Time: 01:21 [facility] 06/15 22:34 Order name: Blood Culture Adult (2) [facility] 06/15 22:34 Order name: Lactate; Complete Time: 01:17 [facility] 06/15 23:10 Order name: ABG [facility] 06/15 23:10 Order name: ABG Arterial Blood Gas; Complete Time: 00:13 [facility] 06/16 01:46 Order name: SARS-COV-2 RT PCR; Complete Time: 04:42 [facility] 06/16 08:33 Order name: Procalcitonin [facility] 06/15 22:14 Order name: XRAY Chest (1 view) [facility] 06/16 08:22 Order name: [facility] 06/16 11:42 Order name: [facility] 06/17 03:30 Order name: CBC with Automated Diff [facility] 06/17 04:05 Order name: Comprehensive Metabolic Panel [facility] 06/17 04:05 Order name: Uric Acid [facility] 06/17 04:05 Order name: Phosphorus [facility] 06/17 04:05 Order name: Creatine Phosphokinase [facility] 06/17 04:05 Order name: T4 Free [facility] 06/17 04:05 Order name: Magnesium [facility] 06/17 04:05 Order name: Thyroid Stimulating Hormone [facility] 06/17 04:31 Order name: PTH Intact [facility] 06/17 07:25 Order name: RAD [facility] 06/15 22:14 Order name: EKG; Complete Time: 22:14 [facility] 06/15 22:14 Order name: Cardiac monitoring; Complete Time: 22:45 [facility] 06/15 22:14 Order name: EKG - Nurse/Tech; Complete Time: 22:44 [facility] 06/15 22:14 Order name: IV Saline Lock; Complete Time: 01:15 [facility] 06/15 22:14 Order name: Labs collected and sent; Complete Time: 01:15 [facility] 06/15 22:14 Order name: O2 Per Protocol; Complete Time: 22:45 [facility] 06/15 22:14 Order name: O2 Sat Monitoring; Complete Time: 22:45 [facility] 06/16 01:57 Order name: Urine Dipstick-Ancillary (obtain specimen); Complete Time: 03:37 la1 06/16 02:20 Order name: Miller; Complete Time: 03:37 la1 EC:53 Rate is 73 beats/min. Rhythm is regular. QRS [place] is Normal. AL interval is normal. QRS art interval is normal. QT interval is normal. No Q waves. T waves are Normal. No ST changes noted. Clinical impression: NSR w/ Non-specific ST/T Changes and No evidence of ischemia. Interpreted by me. Reviewed by me. Administered Medications: 06/16 01:22 Discontinued: NS 0.9% 1000 ml IV at 125 ml/hr continuous [facility] 06/15 23:00 Drug: Xopenex (levalbuterol) 2.5 mg Route: Inhalation; 06/16 00:00 Drug: NS 0.9% 1000 ml Route: IV; Rate: 125 ml/hr; Site: right antecubital; wr 00:45 Drug: AtroVENT (ipratropium) Aerosol 0.5 mg Route: Inhalation; wr 00:45 Drug: Pepcid (famotidine) 20 mg Route: IVP; Site: right upper arm; wr 00:48 Drug: SOLU-Medrol (methylPrednisoLONE) 125 mg Route: IVP; Site: right antecubital; wr 01:25 Drug: Lasix (furosemide) 40 mg Route: IVP; Infused Over: 2 mins; Site: right wr antecubital; 03:45 Drug: Rocephin (cefTRIAXone) 1 grams Route: IV; Rate: calculated rate; Site: right hand;wr 05:16 Drug: Tylenol 1000 mg Route: PO; wr Disposition Summary: 06/16/21 00:21 Hospitalization Ordered Hospitalization Status: Observation art Provider: Aleksander Palma cha Condition: Fair art Problem: new art Symptoms: have improved art Bed/Room Type: Standard art Location: Telemetry/MedSurg (observation)(06/17/21 12:45) jaNica Room Assignment: 215(06/17/21 12:45) edmond Diagnosis - Dyspnea art - COPD/ Chronic obstructive pulmonary disease, unspecified art - Obesity, unspecified art - Unspecified kidney failure - INSUFFICENCY art Forms: - Medication Reconciliation Form art - SBAR form art Signatures: Dispatcher [employer] EDMS Ady Cuellar MD MD cha Attema, Lee, BUSINESS PLANNING DIRECTOR-C BUSINESS PLANNING DIRECTOR-Cla1 Lizz Rapp RN RN tl1 Nathan Dubois RN RN ja1 Monroe Cooper RN wg Robinson, Willena wr Corrections: (The following items were deleted from the chart) 00:56 06/15 22:14 CORONAVIRUS+MR.LAB.BRZ ordered. [facility] 06/16 02:25 00:21 Telemetry/MedSurg (observation) art tl1 02:25 00:21 art tl1 21:02 21:01 PMHx: Diverticulitis; [facility] 21:02 21:01 PMHx: Pneumonia; [facility] 06/17 12:45 09 02:25 [facility] ER HOLD tl1 ja 06/17 12:45 06/16 02:25 ERHOLD- tl1 [facility]
[2021-06-16] MEDS ORDERED: METHYLPREDNISOLONE 125 MG INJ ONE (00:42)
[2021-06-16] MEDS ORDERED: IPRATROPIUM BROM 0.5MG/2.5ML ONE (00:42)
[2021-06-16] MEDS ORDERED: FAMOTIDINE 20 MG/2 ML VIAL IV ONE (00:42)
[2021-06-16] MEDS ORDERED: NA CHLORIDE 0.9% 1,000 ML ONE (00:42)
[2021-06-16] MEDS: FUROSEMIDE 40 MG/4 ML VIAL IV SCH ×3 (01:00→20:45)
[2021-06-16 01:07] LABS: Protime INR 0.98
[2021-06-16 01:09] LABS: Absolute Lymphocytes (CBC) 1.2 K/uL (0.7-4.9); Basophils % 0.9 % (0-1.3); Hematocrit 32.7 % (36.0-45.0); Lymphocytes % 11.6 % (15.3-44.8); MPV 7.5 fL (7.6-11.3); RBC Red Blood Cell Count 3.78 M/uL (3.86-4.86)
[2021-06-16 01:20] LABS: ALT/SGPT 19 U/L (12-78); AST/SGOT 9 U/L (15-37); Alkaline Phosphatase 89 U/L (45-117); BUN Blood Urea Nitrogen 22 mg/dL (7-18); Bicarbonate 29 mmol/L (21-32); Bilirubin Direct < 0.1 mg/dL (0-0.2); Bilirubin Total 0.2 mg/dL (0.2-1.0); Glucose Level 146 mg/dL (74-106); Magnesium 2.5 mg/dL (1.8-2.4); NT PRO-BNP 2691 pg/mL (<450); Potassium 3.9 mmol/L (3.5-5.1); Protein, Total 6.9 g/dL (6.4-8.2); Sodium Level 141 mmol/L (136-145); Troponin (Emerg Dept Use Only) < 0.02 ng/mL (0.0-0.045)
[2021-06-16] MEDS ORDERED: LEVALBUTEROL 1.25 MG/3 ML NEB ONE (01:47)
[2021-06-16] MEDS ORDERED: FUROSEMIDE 20 MG/ 2ML VIAL ONE (01:48)
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
[2021-06-16] MEDS ORDERED: CEFTRIAXONE 1000 MG/VIAL ONE (04:04)
[2021-06-16] MEDS ORDERED: IPRATROPIUM BROM 0.5MG/2.5ML NEB PRN (04:10)
[2021-06-16] MEDS ORDERED: ALBUTEROL 2.5 MG/3 ML NEB SOL NEB PRN ×2 (04:10→14:33)
[2021-06-16] MEDS ORDERED: ONDANSETRON 4 MG/2 ML VIAL IV PRN (04:10)
[2021-06-16] MEDS ORDERED: ACETAMINOPHEN 500 MG TAB ONE (05:16)
--- NOTE | 2021-06-16 06:27 | P.PN ---
Subjective Date of Service: 06/16/21 Primary Care Provider: Dr. Donovan FAM Chief Complaint: Dyspnea, CHF exacerbation Subjective: Improving Physical Examination - Studies Laboratory Data (last 24 hrs) 06/16/21 00:45: PT 11.3, INR 0.98 06/16/21 00:45: WBC 10.60, Hgb 10.3 L, Hct 32.7 L, Plt Count 236 06/16/21 00:45: Sodium 141, Potassium 3.9, BUN 22 H, Creatinine 1.89 H, Glucose 146 H, Magnesium 2.5 H, Total Bilirubin 0.2, AST 9 L, ALT 19, Alkaline Phosphatase 89 Assessment & Plan Discharge Plan: Home Plan to discharge in: 24 Hours Physician Review Additional Text: COVID: negative CXR: COMPARISON: May 03 TECHNIQUE: AP portable chest image was obtained 06/15/2021 10:50 pm . FINDINGS: Lung volumes are very low limiting this evaluation. No peripheral mass, consolidation or pulmonary edema findings seen. Heart and vasculature are normal. No measurable pleural effusion and no pneumothorax. No acute bony abnormality seen. 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 No acute aortic finding. IMPRESSION: Significantly limited portable study showing no acute cardiopulmonary finding. Renal US: COMPARISON: None. FINDINGS: The right kidney measures 10.4 x 4.6 x 5.3 cm. The left kidney measures 8.8 x 4.2 x 4.8 cm. Renal cortical thickness is normal. Increased parenchymal echogenicity is present. No hydronephrosis or suspicious renal mass. There are 2.8 centimeter and 2.4 centimeter anechoic cyst in the mid to lower pole right kidney. A small 13 millimeter cyst is present mid upper pole left kidney. Urinary bladder is contracted around Miller catheter. IMPRESSION: Underlying medical renal disease is evident with no hydronephrosis or suspicious mass. Miller catheter is in place with the urinary bladder contracted. Venous US: COMPARISON: None. TECHNIQUE: Real-time sonographic evaluation of the bilateral lower extremity common femoral, superficial femoral, popliteal and posterior tibial veins was performed. FINDINGS: Normal compressibility, flow augmentation, phasic flow and spontaneous flow are identified in the left and right lower extremity common femoral, superficial femoral, popliteal and posterior tibial veins. No intraluminal filling defects seen. IMPRESSION: No DVT in either lower extremity. Physical Exam: General: Alert, In no apparent distress, Oriented x3 HEENT: Atraumatic, PERRLA, Mucous membr. moist/pink, EOMI, Sclerae nonicteric Neck: Supple, 2+ carotid pulse no bruit, No LAD, Without JVD or thyroid abnormality Respiratory: Clear to auscultation bilaterally, Normal air movement, Crackles/rales. Currently on 1 l/m Cardiovascular: Regular rate/rhythm, Normal S1 S2 Gastrointestinal: Normal bowel sounds, No tenderness Musculoskeletal: No tenderness Integumentary: No rashes Neurological: Normal speech, Normal strength at 5/5 x4 extr, Normal tone, Normal affect Lymphatics: No axilla or inguinal lymphadenopathy Impression: Dyspnea, peripheral edema secondary to suspected acute on chronic diastolic congestive heart failure Acute on chronic renal disease stage 4 History of COPD Hypertension Hyperlipidemia Hypothyroidism Plan: Dyspnea, peripheral edema secondary to suspected acute on chronic diastolic congestive heart failure: Patient improved. Continue IV Lasix. We will teach on 1500 cc/day fluid restriction and low-salt diet. Patient had been noncompliant with her diuretic therapy recently. Will monitor closely. Wean off oxygen. Patient may require oxygen at discharge. Anticipate improvement over the next 24 hours. Nephrology and cardiology consulted. Await recommendations Acute on chronic renal disease stage 4: We will consult nephrology for further recommendation. History of COPD: Continue with COPD medication. Hypertension: Continue with home medication Hyperlipidemia: Continue home medication Hypothyroidism: Continue medication DVT PPX: Heparin Code status: Full Advanced care planning: Home at discharge Time Spent Managing Pts Care (In Minutes): 55
--- NOTE | 2021-06-16 08:21 | RAD REPORT ---
EXAM DESCRIPTION: US - Extrem Venous W Compress [place] - 06/16/2021 4:47 am CLINICAL HISTORY: R/O DVT, R leg > diameter L leg COMPARISON: None. TECHNIQUE: Real-time sonographic evaluation of the bilateral lower extremity common femoral, superfi cial femoral, popliteal and posterior tibial veins was performed. FINDINGS: Normal compressibility, flow augmentation, phasic flow and spontaneous flow are identified in the left and right lower extremity common femoral, superficial femoral, popliteal and posterior t ibial veins. No intraluminal filling defects seen. IMPRESSION: No DVT in either lower extremity.
--- NOTE | 2021-06-16 08:28 | RAD REPORT ---
EXAM DESCRIPTION: RAD - Chest Single View - 06/15/2021 10:50 pm CLINICAL HISTORY: DYSPNEA COMPARISON: May 03 TECHNIQUE: AP portable chest image was obtained 06/15/2021 10:50 pm . FINDINGS: Lung volumes are very low limiting this evaluation. No peripheral mass, consolidation or p ulmonary edema findings seen. Heart and vasculature are normal. No measurable pleural effusion and no pneumothorax. No acute bony abnormality seen. 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 No acute aortic fin ding. IMPRESSION: Significantly limited portable study showing no acute cardiopulmonary finding.
[2021-06-16] MEDS: HEPARIN 5000 UNIT/ML 1 ML VIAL SQ SCH ×2 (09:00→20:45)
[2021-06-16] MEDS ORDERED: CEFTRIAXONE 1 GM/NS 50 ML 1 GM/50 ML BAG IV SCH (09:00)
[2021-06-16] MEDS: DULERA 200/5 (MOMETASONE/FORMOTEROL) INHALER IH SCH ×3 (09:00→20:44)
[2021-06-16] MEDS ORDERED: HEPARIN 5000 UNIT/ML 1 ML VIAL ONE ×2 (09:59→20:47)
[2021-06-16] MEDS ORDERED: FUROSEMIDE 40 MG/4 ML VIAL ONE ×2 (09:59→20:47)
--- NOTE | 2021-06-16 11:42 | RAD REPORT ---
EXAM DESCRIPTION: US - Renal Ultrasound-Complete - 06/16/2021 11:08 am CLINICAL HISTORY: CLIFF COMPARISON: None. FINDINGS: The right kidney measures 10.4 x 4.6 x 5.3 cm. The left kidney measures 8.8 x 4.2 x 4.8 c m. Renal cortical thickness is normal. Increased parenchymal echogenicity is present. No hydronephros is or suspicious renal mass. There are 2.8 centimeter and 2.4 centimeter anechoic cyst in the mid to lower pole right kidney. A small 13 millimeter cyst is present mid upper pole left kidney. Urinary bladder is contracted around Miller catheter. IMPRESSION: Underlying medical renal disease is evident with no hydronephrosis or suspicious mass. Miller catheter is in place with the urinary bladder contracted.
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
[2021-06-16] MEDS: ATORVASTATIN 10 MG TAB PO SCH (20:46)
[2021-06-16] MEDS ORDERED: ATORVASTATIN 20 MG TAB ONE (20:47)
--- NOTE | 2021-06-16 21:16 | CON ---
Date of Consultation: 06/16/2021 Reason For Consultation: Shortness of breath and heart failure. History Of Present Illness: A 80-year-old female with known history of COPD, hypertension, dyslipide deyanira, hypothyroidism, chronic diastolic heart failure, presented with shortness of breath, orthopnea, lower extremity edema. She has stopped taking her Lasix lately and started building fluids and lower extremity edema as well as shortness of breath over the past few days and she could not handle it an ymore so she presented in the emergency room. Denies any chest pain. Past Medical History: As outlined above in the HPI. Medications: Refer reconciliation sheet for detailed list. Allergies: MOXIFLOXACIN. Family History: Positive for cancer on the mother's side. No premature coronary disease. Social History: Does not smoke or drink. Does not use any drugs. She is an ex-smoker. Review of Systems: All systems reviewed and they were negative except as mentioned in the HPI. Physical Examination: Vital Signs: Temperature is 98.5, pulse 86, breathing at 16, blood pressure is 158/64, saturating 94 %. General: Pleasant, elderly female, in no apparent distress. Head and Neck: Pupils are equal, reactive to light. Intact eye movements. No JVD. No cervical lym phadenopathy. Neck is supple. Thyroid is not enlarged. Lungs: Decreased breathing sounds with rhonchi bilaterally and scattered wheezing. Heart: Regular rate and rhythm. No extra sounds. Abdomen: Soft, nontender. Bowel sounds positive. No organomegaly. No masses or hernia. No rigidi ty or rebound. Extremities: Edema bilaterally. No clubbing or cyanosis. Intact pulses. Skin: No rashes. Neurologic: Alert, awake and oriented x3. No acute focal deficits appreciated. Investigations: NT-proBNP is 2691. Troponin less than 0.02, creatinine 1.89, hemoglobin is 10.3. C hest x-ray, limited study. Venous Doppler of lower extremity, no DVT. Assessment And Recommendation: 1.Acute on chronic diastolic congestive heart failure exacerbation. Echo on May 04 of this year, normal EF. Agree with Lasix, however, increase the dose to 80 mg q.12 hours. Monitor BUN, creatinin e, electrolytes, and do serial sets of cardiac enzymes. 2.Hypertension. Should improve with IV diuresis. SR/MODL Voice ID: [id number] Report ID: [id number]
[2021-06-17 03:25] LABS: Absolute Lymphocytes (CBC) 1.4 K/uL (0.7-4.9); Basophils % 1.3 % (0-1.3); Hematocrit 32.7 % (36.0-45.0); Lymphocytes % 14.7 % (15.3-44.8); MPV 7.8 fL (7.6-11.3); RBC Red Blood Cell Count 3.81 M/uL (3.86-4.86)
[2021-06-17 04:05] LABS: Albumin 2.8 g/dL (3.4-5.0); Bilirubin Total 0.2 mg/dL (0.2-1.0); Magnesium 2.3 mg/dL (1.8-2.4); Phosphorus 3.5 mg/dL (2.5-4.9); Potassium 3.5 mmol/L (3.5-5.1); Protein, Total 6.5 g/dL (6.4-8.2); Thyroid Stimulating Hormone 1.04 uIU/mL (0.360-3.740); Uric Acid 9.8 mg/dL (2.6-6.0)
[2021-06-17] MEDS ORDERED: CEFTRIAXONE/SWI 1gm 1 GM/10 ML SYR IVP SCH (05:00)
[2021-06-17] MEDS: LEVOTHYROXINE SOD 0.125 MG TAB PO SCH (06:11)
--- NOTE | 2021-06-17 07:25 | RAD REPORT ---
EXAM DESCRIPTION: RAD - Chest Single View - 06/17/2021 5:42 am CLINICAL HISTORY: CHF COMPARISON: Portable June 15 TECHNIQUE: AP portable chest image was obtained 06/17/2021 5:42 am . FINDINGS: Lung volumes remain low. No new or progressive lung parenchymal process seen. Heart size r emains prominent with prominent central vasculature. Much this is due to large body habitus, portable technique and low lung volume affects. No measurable pleural effusion and no pneumothorax. No acute bony abnormality seen. No acute aortic findings suspected. IMPRESSION: Stable portable chest as detailed.
[2021-06-17] MEDS: AMLODIPINE 5 MG TAB PO SCH (09:00)
[2021-06-17] MEDS: FUROSEMIDE 40 MG/4 ML VIAL IV SCH ×2 (09:00→17:15)
[2021-06-17] MEDS: HEPARIN 5000 UNIT/ML 1 ML VIAL SQ SCH ×2 (09:00→21:15)
[2021-06-17] MEDS ORDERED: HOME MED 1 EA UNK (Lovastatin [Lovastatin] 20 MG Tablet) PO SCH (09:00)
[2021-06-17] MEDS: DULERA 200/5 (MOMETASONE/FORMOTEROL) INHALER IH SCH ×2 (09:00→21:00)
[2021-06-17] MEDS ORDERED: AMLODIPINE 5 MG TAB ONE (09:33)
[2021-06-17] MEDS ORDERED: HEPARIN 5000 UNIT/ML 1 ML VIAL ONE (09:33)
[2021-06-17] MEDS ORDERED: FUROSEMIDE 40 MG/4 ML VIAL ONE (09:34)
--- NOTE | 2021-06-17 09:59 | P.PN ---
Subjective Date of Service: 06/17/21 Primary Care Provider: Dr. Donovan FAM Chief Complaint: Dyspnea, CHF exacerbation Subjective: No new changes Physical Examination - Vital Signs Temperature: 98.2 F Blood Pressure: 152/88 Pulse: 88 Respirations: 17 Pulse Ox (%): 98 - Physical Exam General: In no apparent distress HEENT: Atraumatic, Normocephalic Neck: Supple, JVD distended Respiratory: Crackles/rales Cardiovascular: No rubs, No murmurs, Edema Gastrointestinal: Soft and benign Musculoskeletal: No clubbing Integumentary: No warmth Neurological: Normal speech, Normal tone Urinary: Other (no bladder distention) Assessment And Plan - Plan # CLIFF 2/2 CRS1 Baseline non-proteinuric CKD3b likely 2/2 renovascular Htn, SCr 1.3-1.5 (equiv eGFR 34-40) as of August 2020 Renal ultrasound with asymmetric kidneys, indicative of renovascular disease, otherwise unremarkable Serum creatinine still increasing from 1.9-2.3 today Do not restrict po fluid intake to avoid further kidney injury Monitor input and output, renal panel # Acute on chronic CHF Has jugular venous distention, rales, bilateral lower extremity edema troponin negative, BNP significantly elevated TTE on 05/04/2021 showed LVEF 61%, left atrium dilated, with moderate pulmonary hypertension Increase Lasix to 80 mg IV every 8 hours Urine chemistry on 06/17/2021 showing high urine sodium and high urine potassium indicative of adequate natriuresis and kaliuresis from diuretic use. No evidence of secondary hyperaldosteronism state on urine chem--> no need to add an ger vivian/spironolactone/eplerenone at this time Weigh daily accurately Low-salt diet Do not restrict fluid intake unless she develops hyponatremia # Hypokalemia KCl by mouth repletion received today # Hypertension BP above goal Start carvedilol 6.25 g by mouth twice a day Continue amlodipine 5 m by mouth daily Continue Lasix as above # Chronic serum bicarb elevation 2/2 chronic respi acidosis Seen on ABG on 06/15/21, pH wnl Monitor # Secondary hyperPTH Serum intact PTH elevated at 319 Start Calcitrol 0.25 mg by mouth daily F/u serum 25OHD level
[2021-06-17] MEDS ORDERED: POTASSIUM CL SA 10 MEQ TAB PO ONE ×2 (17:00→20:00)
[2021-06-17] MEDS ORDERED: TRAMADOL HCL 50 MG TAB PO PRN (20:25)
[2021-06-17] MEDS: ATORVASTATIN 10 MG TAB PO SCH (21:16)
[2021-06-18] MEDS: FUROSEMIDE 40 MG/4 ML VIAL IV SCH ×3 (01:52→16:55)
[2021-06-18 05:23] LABS: Absolute Lymphocytes (CBC) 1.5 K/uL (0.7-4.9); Basophils % 1.4 % (0-1.3); Hematocrit 31.8 % (36.0-45.0); Lymphocytes % 16.2 % (15.3-44.8); MPV 7.5 fL (7.6-11.3); RBC Red Blood Cell Count 3.73 M/uL (3.86-4.86)
[2021-06-18] MEDS: LEVOTHYROXINE SOD 0.125 MG TAB PO SCH (05:31)
[2021-06-18] MEDS ORDERED: METOPROLOL TARTRATE 5 MG/5 ML INJ IV STA (05:58)
[2021-06-18 05:59] LABS: Albumin 2.7 g/dL (3.4-5.0); Bilirubin Total 0.3 mg/dL (0.2-1.0); Magnesium 2.1 mg/dL (1.8-2.4); Phosphorus 4.1 mg/dL (2.5-4.9); Protein, Total 6.2 g/dL (6.4-8.2)
[2021-06-18] MEDS: METOPROLOL TAR 50 MG TAB PO ONE ×2 (06:24)
[2021-06-18] MEDS ORDERED: METOPROLOL TARTRATE 5 MG/5 ML INJ IV ONE (06:27)
[2021-06-18] MEDS ORDERED: carvediloL 6.25 MG TAB PO SCH (08:00)
[2021-06-18] MEDS: DULERA 200/5 (MOMETASONE/FORMOTEROL) INHALER IH SCH ×2 (08:28→21:00)
[2021-06-18] MEDS: CALCITROL 0.25 MCG CAP PO SCH (08:29)
[2021-06-18] MEDS: HEPARIN 5000 UNIT/ML 1 ML VIAL SQ SCH ×2 (08:29→21:25)
[2021-06-18] MEDS: AMLODIPINE 5 MG TAB PO SCH (08:31)
--- NOTE | 2021-06-18 12:58 | P.PN ---
Subjective Date of Service: 06/18/21 Primary Care Provider: Dr. Donovan FAM Chief Complaint: Dyspnea, CHF exacerbation Subjective pt admitted with SOB and CLIFF Today Pt sill have rales on exam responding to lasix cont khan Physical exam general: AAOX3, NAD , obese Neck; Supple, No elevated JVD chest rales hear: RRR, normal S1,2 no murmur or rub Chest: CTAB, no rales or wheezes Abdomen: Soft , Nt Extremities edema # CLIFF 2/2 CRS1 Baseline non-proteinuric CKD3b likely 2/2 renovascular Htn, SCr 1.3-1.5 (equiv eGFR 34-40) as of August 2020 Renal ultrasound with asymmetric kidneys, indicative of renovascular disease, otherwise unremarkable Serum creatinine still increasing from 1.9-2.3 today Do not restrict po fluid intake to avoid further kidney injury Monitor input and output, renal panel # Acute on chronic CHF Has jugular venous distention, rales, bilateral lower extremity edema troponin negative, BNP significantly elevated TTE on 05/04/2021 showed LVEF 61%, left atrium dilated, with moderate pulmonary hypertension Cont lasix 80mg tid No evidence of secondary hyperaldosteronism state on urine chem--> Weigh daily accurately Low-salt diet Do not restrict fluid intake unless she develops hyponatremia F/U SPEP # Hypokalemia KCl by mouth repletion received today # Hypertension BP above goal carvedilol 6.25 g by mouth twice a day Continue amlodipine 5 m by mouth daily Continue Lasix as above # Chronic serum bicarb elevation 2/2 chronic respi acidosis Seen on ABG on 06/15/21, pH wnl Monitor # Secondary hyperPTH Serum intact PTH elevated at 319 Start Calcitrol 0.25 mg by mouth daily F/u serum 25OHD level Physical Examination - Vital Signs Temperature: 97.9 F Blood Pressure: 134/63 Pulse: 64 Respirations: 18 Pulse Ox (%): 94 - Studies Microbiology Data (last 24 hrs): 06/16/21 00:45 Blood - Blood Anaerobic Blood Culture - Final
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
--- NOTE | 2021-06-18 14:45 | PN ---
Date of Progress Note: 06/18/2021 The patient feels somewhat better today. She is talking and breathing without much effort, although she complains of exertional dyspnea. She has had a marked amount of diuresis over the past 24 hours. Hand and leg edema have improved. She did have an episode of atrial fibrillation with rapid respon se last night, responded to IV Lopressor. Continuing atrial fibrillation today with controlled rate. The possibility of a discharge in the next day or so considered; however, she has not required oxyg en at home in the past and/or a Miller catheter. We will continue with this treatment overnight and r e-evaluate in a.m. HR/MODL Voice ID: [id number] Report ID: [id number]
[2021-06-18] MEDS: ATORVASTATIN 10 MG TAB PO SCH (21:24)
[2021-06-18] MEDS: METOPROLOL TAR 50 MG TAB PO SCH (21:24)
[2021-06-19] MEDS: FUROSEMIDE 40 MG/4 ML VIAL IV SCH ×3 (01:13→16:38)
[2021-06-19] MEDS: LEVOTHYROXINE SOD 0.125 MG TAB PO SCH (05:41)
[2021-06-19 06:01] LABS: Absolute Lymphocytes (CBC) 1.8 K/uL (0.7-4.9); Hematocrit 34.5 % (36.0-45.0); Lymphocytes % 18.1 % (15.3-44.8); MPV 7.6 fL (7.6-11.3)
[2021-06-19 06:21] LABS: Bilirubin Total 0.3 mg/dL (0.2-1.0); Magnesium 2.1 mg/dL (1.8-2.4); Potassium 3.8 mmol/L (3.5-5.1); Protein, Total 7.3 g/dL (6.4-8.2)
--- NOTE | 2021-06-19 06:32 | PN ---
Date of Progress Note: 06/18/2021 Ms. Bentley is 80, was admitted to Dr. Mann on 06/16/2021, was seen by Dr. Arriaga for an acute on c hronic diastolic congestive heart failure and hypertension. She also has a history of neuropathy, mi ld dementia. She is known to have a normal ejection fraction. Her creatinine is 1.96. She was bein g diuresed and actually doing better. She is on Lipitor Norvasc, Lasix, Coreg, Synthroid, and potass ium; however, she developed an episode of atrial fibrillation that was rapid. Received IV Lopressor by Dr. Mann. I changed her carvedilol to metoprolol 50 b.i.d. She is back in normal rhythm today . I think Ms. Bentley should continue her present regimen. When she goes home, she should be on beta -vivian. I think she should be on anticoagulant, preferably Eliquis 5 mg b.i.d. I discussed the ca se further with Dr. Mann. ERICK/DAPHNEY Voice ID: [id number] Report ID: [id number]
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
[2021-06-19] MEDS: CALCITROL 0.25 MCG CAP PO SCH (07:52)
[2021-06-19] MEDS: HEPARIN 5000 UNIT/ML 1 ML VIAL SQ SCH ×2 (07:52→20:14)
[2021-06-19] MEDS: AMLODIPINE 5 MG TAB PO SCH (07:53)
[2021-06-19] MEDS: METOPROLOL TAR 50 MG TAB PO SCH ×2 (07:53→20:14)
[2021-06-19] MEDS: DULERA 200/5 (MOMETASONE/FORMOTEROL) INHALER IH SCH ×2 (07:54→20:17)
--- NOTE | 2021-06-19 17:58 | P.PN ---
Subjective Date of Service: 06/19/21 Primary Care Provider: Dr. Donovan FAM Chief Complaint: Dyspnea, CHF exacerbation Subjective pt admitted with SOB and CLIFF Today Pt sill have rales on exam peripheral edema near resolved plan to discharge tomorrow can be discharged rom nephrology point of view Physical exam general: AAOX3, NAD , obese Neck; Supple, No elevated JVD chest rales hear: RRR, normal S1,2 no murmur or rub Chest: CTAB, no rales or wheezes Abdomen: Soft , Nt Extremities edema # CLIFF 2/2 CRS1 Baseline non-proteinuric CKD3b likely 2/2 renovascular Htn, SCr 1.3-1.5 (equiv eGFR 34-40) as of August 2020 Renal ultrasound with asymmetric kidneys, indicative of renovascular disease, otherwise unremarkable Serum creatinine still increasing from 1.9-2.3 today Do not restrict po fluid intake to avoid further kidney injury Monitor input and output, renal panel # Acute on chronic CHF Has jugular venous distention, rales, bilateral lower extremity edema troponin negative, BNP significantly elevated TTE on 05/04/2021 showed LVEF 61%, left atrium dilated, with moderate pulmonary hypertension Cont lasix 80mg tid No evidence of secondary hyperaldosteronism state on urine chem--> Weigh daily accurately Low-salt diet Do not restrict fluid intake unless she develops hyponatremia F/U SPEP # Hypokalemia KCl by mouth repletion received today # Hypertension BP above goal carvedilol 6.25 g by mouth twice a day Continue amlodipine 5 m by mouth daily Continue Lasix as above # Chronic serum bicarb elevation 2/2 chronic respi acidosis Seen on ABG on 06/15/21, pH wnl Monitor # Secondary hyperPTH Serum intact PTH elevated at 319 Start Calcitrol 0.25 mg by mouth daily F/u serum 25OHD level Physical Examination - Vital Signs Temperature: 98.1 F Blood Pressure: 142/65 Pulse: 53 Respirations: 18 Pulse Ox (%): 95
[2021-06-19] MEDS: ATORVASTATIN 10 MG TAB PO SCH (20:14)
[2021-06-20] MEDS: FUROSEMIDE 40 MG/4 ML VIAL IV SCH ×3 (00:22→17:08)
[2021-06-20] MEDS: LEVOTHYROXINE SOD 0.125 MG TAB PO SCH (05:22)
[2021-06-20 05:41] LABS: Absolute Lymphocytes (CBC) 1.5 K/uL (0.7-4.9); Basophils % 1.2 % (0-1.3); Hematocrit 32.2 % (36.0-45.0); Lymphocytes % 16.6 % (15.3-44.8); MPV 7.6 fL (7.6-11.3); RBC Red Blood Cell Count 3.77 M/uL (3.86-4.86)
[2021-06-20 05:59] LABS: Albumin 2.8 g/dL (3.4-5.0); Bilirubin Total 0.3 mg/dL (0.2-1.0); Potassium 3.2 mmol/L (3.5-5.1); Protein, Total 6.5 g/dL (6.4-8.2)
[2021-06-20 06:24] VITALS: BMI 42.4
[2021-06-20] MEDS ORDERED: PNEUMOCOCCAL VACCINE 0.5 ML IMVAC ONE (08:00)
[2021-06-20] MEDS: DULERA 200/5 (MOMETASONE/FORMOTEROL) INHALER IH SCH ×2 (09:00→21:00)
--- NOTE | 2021-06-20 09:34 | PN ---
Date of Progress Note: 06/19/2021 Ms. Bentley was seen with me in followup with diastolic congestive heart failure with acute exacerbati on, developed atrial fibrillation. Creatinine is 2.17, which has been increased . Today, she is in sinus rhythm with a rate of 60. She was on metoprolol. She needs to be on anticoagulant, preferably Eliquis. She can go home whenever it is okay with Dr. Mann. We will see her in the ne ar future. ERICK/DAPHNEY Voice ID: [id number] Report ID: [id number]
[2021-06-20] MEDS: HEPARIN 5000 UNIT/ML 1 ML VIAL SQ SCH (10:05)
[2021-06-20] MEDS: CALCITROL 0.25 MCG CAP PO SCH (10:09)
[2021-06-20] MEDS: METOPROLOL TAR 50 MG TAB PO SCH ×2 (10:09→21:00)
[2021-06-20] MEDS: AMLODIPINE 5 MG TAB PO SCH (10:09)
[2021-06-20] MEDS ORDERED: POTASSIUM CL SA 10 MEQ TAB PO ONE (16:00)
--- NOTE | 2021-06-20 19:04 | PN ---
Date of Progress Note: 06/19/2021 The patient feels somewhat better. Still has some exertional dyspnea and few rales, but s he came in. She lost approximately 10 pounds and continues to diurese. We will remove the catheter in preparation for going home in the a.m. and monitor her oxygen. I suspect she will need home O2 an d we will put her on some Eliquis for her AFib. She has had 1 episode over 150. We will also increase her Lasix to 80 mg a day. HR/MODL Voice ID: [id number] Report ID: [id number]
--- NOTE | 2021-06-20 20:19 | PN ---
Date of Progress Note: 06/20/2021 The patient feels better today. She qualifies for home O2. This has been set up with the help of [facility] also, home health. Potassium be replaced p.o. in her medication as she will be discharged on metoprolol 50 mg b.i.d., held on Eliquis 2.5 mg b.i.d., due to increased creatinine, home O2 and she will be seen in the office in 4 days. HR/MODL Voice ID: [id number] Report ID: [id number]
[2021-06-20] MEDS: APIXABAN 2.5 MG TABLET PO SCH (21:00)
[2021-06-20] MEDS: ATORVASTATIN 10 MG TAB PO SCH (21:00)
[2021-06-21] MEDS: FUROSEMIDE 40 MG/4 ML VIAL IV SCH ×3 (01:00→16:30)
--- NOTE | 2021-06-21 02:20 | PN ---
Date of Progress Note: 06/20/2021 Chief Complaint: Acute kidney injury, dyspnea, and congestive heart failure exacerbation. History Of Present Illness: The patient has history of chronic kidney stage 3B and renovascular hype rtension, baseline creatinine level 1.3 to 1.5. She developed acute kidney injury. She is complaini ng of generalized weakness. She has peripheral edema, although has improved significantly. Review of Systems: Denies chest pain or palpitation. Physical Examination: Lungs: Clear to auscultation bilaterally. Heart: S1, S2. Abdomen: Soft, benign. Extremities: Slight edema. Impression And Plan: 1.Acute kidney injury, chronic kidney disease stage 3B, cardiorenal syndrome with congestive heart f ailure exacerbation. The patient will continue diuretic. Troponin is negative and BNP is elevated. Continue Lasix 80 mg 3 times per day. The patient has preserved systolic function and ejection frac tion 61% with moderate pulmonary hypertension. The patient will continue low-sodium diet and Lasix. Monitor electrolytes and renal function. The patient will continue carvedilol for blood pressure co ntrol and congestive heart failure management. 2.Secondary hyperparathyroidism. The patient is on calcitriol. The patient had blood work to obtai n 25-OH vitamin D level. Plan is to reevaluate and treat vitamin D deficiency according to the resul ts. Vitamin D 25-hydroxy is 9.5. The patient was started on vitamin D 50,000 units weekly for 12 weeks. IOANA/DAPHNEY Voice ID: [id number] Report ID: [id number]
[2021-06-21] MEDS: LEVOTHYROXINE SOD 0.125 MG TAB PO SCH (05:39)
--- NOTE | 2021-06-21 07:22 | P.PN ---
Subjective Date of Service: 06/21/21 Primary Care Provider: Dr. Donovan FAM Chief Complaint: Dyspnea, CHF exacerbation Subjective: Other (no complaints of increased shortness of breath.) Physical Examination - Vital Signs Temperature: 97.1 F Blood Pressure: 122/65 Pulse: 65 Respirations: 16 Pulse Ox (%): 96 - Physical Exam General: Other (appears as her stated age) HEENT: Atraumatic, Normocephalic Neck: Supple Respiratory: Other (symmetric chest expansion) Cardiovascular: No rubs, No murmurs Gastrointestinal: Soft and benign, No guarding Musculoskeletal: No clubbing Integumentary: No warmth Neurological: Normal tone Urinary: Other (no bladder distention) - Studies Microbiology Data (last 24 hrs): 06/16/21 01:00 Blood - Blood Aerobic Blood Culture - Final No growth in 5 days. 06/16/21 01:00 Blood - Blood Anaerobic Blood Culture - Final No growth in 5 days. 06/16/21 00:45 Blood - Blood Aerobic Blood Culture - Final No growth in 5 days. 06/16/21 00:45 Blood - Blood Anaerobic Blood Culture - Final Assessment And Plan - Plan # CLIFF 2/2 CRS1 Baseline non-proteinuric CKD3b likely 2/2 renovascular Htn, SCr 1.3-1.5 (equiv eGFR 34-40) as of August 2020 Renal ultrasound with asymmetric kidneys, indicative of renovascular disease, otherwise unremarkable Serum creatinine improved/plateaued at 2.1 Do not restrict po fluid intake to avoid further kidney injury Monitor input and output, renal panel # Acute on chronic CHF Has jugular venous distention, rales, bilateral lower extremity edema Troponin negative, BNP significantly elevated TTE on 05/04/2021 showed LVEF 61%, left atrium dilated, with moderate pulmonary hypertension Lasix at 80 mg IV bid Urine chemistry on 06/17/2021 showing high urine sodium and high urine potassium indicative of adequate natriuresis and kaliuresis from diuretic use. No evidence of secondary hyperaldosteronism state on urine chem--> no need to add an ger vivian/spironolactone/eplerenone at this time Weigh daily accurately Low-salt diet Do not restrict fluid intake unless she develops hyponatremia # Chronic serum bicarb elevation 2/2 chronic respi acidosis Seen on ABG on 06/15/21, pH wnl Now w/ superimposed metab alkalosis Ordered Diamox 250 mg IV twice a day 3 doses # Hypertension BP above goal increase amlodipine to 10 g by mouth daily Continue metoprolol same dose Continue Lasix as above # Secondary hyperPTH Serum intact PTH elevated at 319 Start Calcitrol 0.25 mg by mouth daily Cont D3 5,000 IU po daily # Vit D deficiency 25OHD level low at 9 On high-dose vitamin D supplementation
[2021-06-21] MEDS: APIXABAN 2.5 MG TABLET PO SCH (07:51)
[2021-06-21] MEDS: CALCITROL 0.25 MCG CAP PO SCH (07:51)
[2021-06-21] MEDS: DULERA 200/5 (MOMETASONE/FORMOTEROL) INHALER IH SCH (07:54)
[2021-06-21] MEDS: AMLODIPINE 5 MG TAB PO SCH (07:56)
[2021-06-21] MEDS: METOPROLOL TAR 50 MG TAB PO SCH (07:57)
[2021-06-21] MEDS ORDERED: VITAMIN D 5,000 UNIT CAP PO SCH (09:00)
[2021-06-21 15:41] VITALS: O2SAT 94
[2021-06-21 16:51] LABS: Potassium 3.7 mmol/L (3.5-5.1)
[2021-06-21 18:15] LABS: Urine Appearance CLEAR (Clear); Urine Bilirubin NEGATIVE (Negative); Urine Blood NEGATIVE (Negative); Urine Color YELLOW (Yellow); Urine Glucose NEGATIVE (Negative); Urine Protein 2+ (Negative); Urine Urobilinogen 0.2 mg/dL (0.2-1.0); Urine pH 6.5 (5.0-7.0)
[2021-06-21 18:58] VITALS: BP 122/65; TEMP 97.1
[2021-06-21] MEDS ORDERED: AMLODIPINE 5 MG TAB PO STA (19:00)
[2021-06-21 19:20] LABS: Urine Bacteria <20 /HPF (<20); Urine RBC NONE SEEN /HPF (NONE SEEN)
--- NOTE | 2021-06-21 20:36 | PN ---
The patient feels much better. She has lost approximately 20 pounds. Her breathing is comfortable. She did qualify for oxygen, as she gets exertional hypoxia. This has been delivered to the house. She was placed on Eliquis due to her atrial fibrillation and metoprolol, rather than a Coreg. To fol low up with me in 5 days and Cardiology in 2 weeks. HR/MODL Voice ID: [id number] Report ID: [id number]
[2021-06-21] MEDS ORDERED: FUROSEMIDE 40 MG/4 ML VIAL IV SCH (21:00)
[2021-06-21] MEDS ORDERED: ACETAZOLAMIDE 500 MG IV IV SCH (21:00)
[2021-06-22] MEDS ORDERED: AMLODIPINE 10 MG TAB PO SCH (09:00)
[2021-06-23 06:38] LABS: Alpha-1-Globulins 0.4 g/dL (0.2-0.3); Alpha-2-Globulins 1.2 g/dL (0.5-0.9); Gamma Globulins 0.5 g/dL (0.8-1.7); INTERPRETATION REPORT
[2021-06-23 11:05] LABS: Vitamin D 1,25-Dihydroxy Total 16 pg/mL (18-72); Vitamin D,1,25-OH2, D2 <8 pg/mL
== END 2021-06-21 18:59 | disposition home health service (06) | DRG 291 ==
LOC: ER 21:46 → ERHOLD 06-16 02:09 → 2ND 06-17 14:46 → OBSVTOIN 06-17 18:02
PROVIDERS: ADMIT Family Medicine; ATTEND Family Medicine
DX: I13.0 Hypertensive heart and chronic kidney disease with heart failure and stage 1 through stage 4 chronic kidney disease, or unspecified chronic kidney disease (principal); I50.33 Acute on chronic diastolic (congestive) heart failure; N17.9 Acute kidney failure, unspecified; N25.81 Secondary hyperparathyroidism of renal origin; N18.32 Chronic kidney disease, stage 3b; D64.9 Anemia, unspecified; E03.9 Hypothyroidism, unspecified; E87.6 Hypokalemia; I48.91 Unspecified atrial fibrillation; E55.9 Vitamin D deficiency, unspecified; Z20.822 Contact with and (suspected) exposure to COVID-19
CPT/HCPCS: 36415; 71045; 76770; 80048; 80053; 80076; 81001; 82306; 82550; 82652; 82805; 83605; 83735; 83880; 83935; 83970; 84100; 84132; 84145; 84165; 84300; 84439; 84443; 84484; 84550; 85025; 85610; 87040; 93005; 93970; 97116; 97161; 99285; G0378; J1120; J1644; J1940; J2930; J7030; J7606; U0003

== ENCOUNTER 2021-06-28 12:21 | Inpatient (IN) | payer OTHER ==
[2021-06-28] MEDS ORDERED: D50W 25 GM/50 ML SYRINGE IV PRN ×2 (12:53→13:00)
[2021-06-28] MEDS ORDERED: GLUCAGON 1 MG/VIAL IM PRN ×2 (12:53→13:00)
[2021-06-28] MEDS ORDERED: NA CHLORIDE 0.9% 1,000 ML IV SCH ×2 (13:00→16:00)
[2021-06-28] MEDS: INSULIN -REGULAR HUMAN 50 UNIT/0.5 ML ML SQ SCH ×3 (14:02→20:31)
[2021-06-28 14:19] LABS: Absolute Lymphocytes (CBC) 0.7 K/uL (0.7-4.9); Basophils % 1.1 % (0-1.3); Hematocrit 30.4 % (36.0-45.0); Lymphocytes % 6.4 % (15.3-44.8); MPV 8.2 fL (7.6-11.3); RBC Red Blood Cell Count 3.51 M/uL (3.86-4.86)
[2021-06-28 14:38] VITALS: BMI 43.8
[2021-06-28 14:42] LABS: Thyroid Stimulating Hormone 0.242 uIU/mL (0.360-3.740)
[2021-06-28 15:20] LABS: Blood Morphology Comment NOT SEEN (NOT SEEN); Platelet Estimate ADEQ; White Blood Cell Scan OK (OK)
--- NOTE | 2021-06-28 16:07 | CON ---
Date of Consultation: 06/28/2021 Reason For Consultation: Elevated BUN and creatinine, fluid management. History Of Present Illness: This is a pleasant 80-year-old female, well known to me from the office with significant past medical history of hypertension, chronic kidney disease stage 3B, baseline creatinine 1.4 to 1.6 with GFR of 35, hyperlipidemia, the patient recently admitted to the hospital and released from the hospital on the 21 of June. The patient was released apparently on Lasix and spironolactone. The patient according to her at home started having dizziness, worsening in her shortness of breath, and occasional low blood pressure. For that reason, reported to her primary care. Primary workup showed creatinine jumped to 3.2 with GFR of 14 with marginal hyperkalemia of 5. Her acidosis has been improved. Her metabolic alkalosis also has been improved, but again with this worsening kidney function, the patient upon leaving the hospital last week, creatinine was 2 with GFR of 23. The patient denied any chest pain. Denied taking any nonsteroidal. No IV contrast. Apparently, the patient was taking spironolactone and Lasix 40 b.i.d. Past Medical History: Includes; 1. Hypertension. 2. 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 3. Hyperlipidemia. 4. COPD. 5. Congestive heart failure, diastolic dysfunction with normal ejection fraction as of echo done in May 2021. No mention for any pulmonary hypertension. Allergies: TO ADHESIVE AND MOXIFLOXACIN. Past Surgical History: Includes cholecystectomy, knee replacement, breast reduction, gastric banding, shoulder surgery. Family History: Positive for cancer. Social History: Denied smoking, denied drinking, denied drugs abuse. Review of Systems: Head and Neck: Lightheaded. GI: No nausea. No vomiting. : No polyuria. No dysuria. No hematuria. Shirt Trimmer: No vaginal discharge. Respiratory: Has shortness of breath. Cardiovascular: No chest pain. Endocrine: No polydipsia. Skin: No rash. Neuro: Has neuropathy. Musculoskeletal: Low back pain. Physical Examination: General: When I saw the patient; the patient lying in bed flat, not on any oxygen. Vital Signs: Blood pressure of 152/64, pulse of 45, afebrile. Chest: Clear to auscultation. Heart: S1, S2. Regular. Abdomen: Soft, nontender. Extremity: Trace edema. Neuro: Alert. No focality. Home Medications: Include bupropion, KCl, omeprazole, nitrofurantoin, metoprolol, lovastatin, levothyroxine, Lasix 40 b.i.d., donepezil, amlodipine. Current Medications: In the hospital include IV fluid and insulin. Assessment And Plan: 1. Acute kidney injury complicated with marginal hyperkalemia, mostly secondary to over diuresis secondary to Lasix/spironolactone. I am going to go ahead and hold diuresis, agree with gentle hydration. We will send for renal ultrasound and we will send for chest x-ray for better evaluation for the fluid status for the patient. 2. Hyperkalemia with the presence of renal failure. I am going to back up on the spironolactone for the time being. 3. Edema secondary to cardiorenal. No mention for pulmonary hypertension. Reviewing the urine electrolyte, no picture of hyperaldosteronism. We will hold on the spironolactone for the time being. 4. Hypertension, currently blood pressure controlled, not optimal. I am going to start the patient on gentle dose of calcium channel vivian and we will follow up. 5. Alkalosis secondary to contraction alkalosis. Currently has relatively some acidosis. Correcting her alkalosis, we will hold Diamox, hold spironolactone for the time being and we will follow up. I do not see any need for any renal replacement therapy for the time being. We will discuss the case with Dr. Mann. Time spent examining the patient [id number] placing order discussing with the patient reviewing data discussing the case with all of our subspecialty including hospitalist 65 minutes BURTON Voice ID: [id number] Report ID: [id number] CAITLYN
--- NOTE | 2021-06-28 16:29 | RAD REPORT ---
EXAM DESCRIPTION: Vishnu Single View06/28/2021 4:12 pm CLINICAL HISTORY: Chest pain COMPARISON: 06/17/21 FINDINGS: The lungs appear clear of acute infiltrate. The heart is mildly enlarged IMPRESSION: No acute abnormalities displayed
[2021-06-28] MEDS ORDERED: INSULIN -REGULAR HUMAN 50 UNIT/0.5 ML ML SQ SCH (16:30)
[2021-06-28] MEDS: ATORVASTATIN 10 MG TAB PO SCH (20:30)
[2021-06-28] MEDS: GABAPENTIN 300 MG CAP PO SCH (20:30)
[2021-06-28] MEDS: ESCITALOPRAM 20 MG TAB PO SCH (20:30)
[2021-06-28] MEDS: BUPROPRION HCL S.R. 150MG TAB PO SCH (20:31)
[2021-06-28] MEDS: APIXABAN 2.5 MG TABLET PO SCH (20:31)
[2021-06-28] MEDS: PRIMIDONE 50 MG TAB PO SCH (20:37)
[2021-06-28] MEDS: PANTOPRAZOLE 40MG TABLET PO SCH (20:37)
[2021-06-28] MEDS: ROPINIROLE HCL 1 MG TAB PO SCH (20:37)
[2021-06-28] MEDS ORDERED: HOME MED 1 EA UNK (Lovastatin [Lovastatin] 20 MG Tablet) PO SCH (21:00)
[2021-06-28 23:39] LABS: Urine Appearance CLOUDY (Clear); Urine Bilirubin NEGATIVE (Negative); Urine Blood NEGATIVE (Negative); Urine Color YELLOW (Yellow); Urine Glucose NEGATIVE (Negative); Urine Protein 2+ (Negative); Urine Urobilinogen 0.2 mg/dL (0.2-1.0)
[2021-06-28 23:55] LABS: Urine Bacteria <20 /HPF (<20); Urine RBC <5 /HPF (NONE SEEN)
[2021-06-29] MEDS: LEVOTHYROXINE SOD 0.125 MG TAB PO SCH (05:41)
[2021-06-29 06:25] LABS: Absolute Lymphocytes (CBC) 1.4 K/uL (0.7-4.9); Basophils % 1.1 % (0-1.3); Hematocrit 29.3 % (36.0-45.0); MPV 8.3 fL (7.6-11.3)
[2021-06-29 06:55] LABS: Albumin 3.1 g/dL (3.4-5.0); Phosphorus 7.1 mg/dL (2.5-4.9); Potassium 4.6 mmol/L (3.5-5.1); Uric Acid 11.3 mg/dL (2.6-6.0)
[2021-06-29] MEDS: INSULIN -REGULAR HUMAN 50 UNIT/0.5 ML ML SQ SCH ×4 (07:30→21:00)
[2021-06-29] MEDS: ROPINIROLE HCL 1 MG TAB PO SCH ×2 (07:53→21:41)
[2021-06-29] MEDS: GABAPENTIN 300 MG CAP PO SCH (07:53)
[2021-06-29] MEDS: PANTOPRAZOLE 40MG TABLET PO SCH ×2 (07:53→21:42)
[2021-06-29] MEDS: ESCITALOPRAM 20 MG TAB PO SCH ×2 (07:54→21:42)
[2021-06-29] MEDS: APIXABAN 2.5 MG TABLET PO SCH ×2 (07:54→21:41)
[2021-06-29] MEDS: DONEPEZIL HCL 5 MG TAB PO SCH (07:54)
[2021-06-29] MEDS ORDERED: AMLODIPINE 10 MG TAB PO SCH (09:00)
[2021-06-29] MEDS ORDERED: SPIRONOLACTONE 25 MG TABLET PO SCH (09:00)
[2021-06-29] MEDS ORDERED: HOME MED 1 EA UNK (Donepezil Hcl [Aricept] 10 MG Tablet) PO SCH (09:00)
--- NOTE | 2021-06-29 09:03 | RAD REPORT ---
EXAM DESCRIPTION: US - Renal Ultrasound-Complete - 06/28/2021 11:07 pm CLINICAL HISTORY: CLIFF COMPARISON: Renal Ultrasound-Complete dated 06/16/2021 FINDINGS: The right kidney measures 10.4 cm in long axis. Left kidney measures 9.1 cm in long axis. 11 mm cyst in the interpolar aspect of the left kidney. 18 mm cyst in the upper pole the right kidney . There is a 2.7 cm cyst in the lower pole of the right kidney. No hydronephrosis. Increased echogeni city renal cortex consistent with medical renal disease. The bladder is unremarkable. IMPRESSION: No evidence of hydronephrosis . Increased echogenicity of the renal cortices consistent with medical renal disease. Bilateral renal cysts.
--- NOTE | 2021-06-29 11:28 | PN ---
Date of Progress Note: 06/29/2021 Subjective: The patient was admitted with acute kidney injury secondary to over diuresis. Yesterday, we hold the Lasix and spironolactone. Orthostatic was negative. Her blood pressure is still marginally on the lower side with bradycardia. The patient's shortness of breath did not get worse even though that the patient was maintained on IV fluid without any diuresis. Physical Examination: Vital Signs: Blood pressure 116/57, pulse of 46, afebrile. Chest: Faint rales on the left base. Heart: S1, S2. Regular. Abdomen: Soft, nontender. Extremities: Trace edema. Neurologic: Alert. No focality. No tremor. Laboratory Data: WBC 9.6, H and H 9.3/29.3, platelet 196. Sodium 141, potassium 4.6, bicarb 26, BUN 68, creatinine 3 trending down, GFR 15 trending up. Uric acid is still elevated at 11.3. Calcium 7.4, phosphorus 7.1. Albumin 3.1, corrected calcium is 8.1. TSH 0.2. Current Medications: The patient on include amlodipine 10 mg, atorvastatin, spironolactone 5 mg, bupropion, Lexapro, gabapentin, pantoprazole, levothyroxine. Assessment And Plan: 1. Acute kidney injury secondary to over diuresis, looked to me normal volume currently. I am going to keep holding spironolactone, discontinue IV fluid. We will monitor the patient. 2. Hypertension, currently blood pressure on the lower side. Discontinue spironolactone. We will discontinue amlodipine and we will monitor the patient. 3. Secondary hyperparathyroidism with hyperphosphatemia. I am going to start the patient on Tums. 4. Hypocalcemia secondary to secondary hyperparathyroidism. Start the patient on Tums. We will monitor. 5. Edema secondary to cardiorenal. The patient had diastolic dysfunction, currently normal volume. I do not see the need for amlodipine. No need for spironolactone as there is no hyperaldosteronism picture currently. We will hold Lasix. We will consider rechallenge with the Lasix tomorrow. 6. Edema, multifactorial, possible secondary to cardiorenal, questionable if it is secondary to gabapentin. I am going to go ahead and decrease the gabapentin to 200 b.i.d. and we will monitor the patient's neuropathy symptoms. Hold the diuresis for the time being given the low blood pressure and acute kidney injury and we will follow up. 7. Urinary tract infection. Culture negative. We will follow up with primary. Time spent examining the patient [id number] placing order reviewing data including radiology and lab other consult discussing the case with the patient discussed the case with the steamer tender including nursing discussed with all of our subspecialty and hospitalist 35-minute BURTON Voice ID: [id number] Report ID: [id number] MTDD
[2021-06-29] MEDS: CALCIUM CARBONATE CHEW 500MG TAB PO SCH ×2 (11:31→16:23)
--- NOTE | 2021-06-29 19:40 | PN ---
Date of Progress Note: 06/29/2021 The patient states she feels much better today. Her oxygen levels are much better. She is much more alert. Her blood counts have improved considerably with the change of medication, Aldactone and Las ix and hydrating her. She was seen by both Pulmonology and Nephrology. The latter made some signifi cant changes. Her creatinine is still somewhat elevated compared to her baseline; however, continuat ion of her medication, the present status should result in improvement and then the problem will be w hich diuretic and what strength to use at the time of discharge. HR/MODL Voice ID: [id number] Report ID: [id number]
[2021-06-29] MEDS: ATORVASTATIN 10 MG TAB PO SCH (21:00)
[2021-06-29] MEDS: GABAPENTIN 100 MG CAP PO SCH (21:40)
[2021-06-29] MEDS: PRIMIDONE 50 MG TAB PO SCH (21:43)
[2021-06-29] MEDS: BUPROPRION HCL S.R. 150MG TAB PO SCH (21:43)
--- NOTE | 2021-06-29 23:55 | HP ---
Date of Admission: 06/28/2021 Chief Complaint: Acute kidney injury with elevated creatinine and BUN. History Of Present Illness: The patient has had significant difficulty with renal and cardiac proble ms over the past few weeks. She was recently hospitalized, was felt to be CHF. She had marked diure sis with significant weight loss and felt much better in general and the blood gases which was better as well, even though, she has had prior pulmonary disease under care of senior sales director for COPD. At the time of discharge, she was placed on aldosterone and potassium replacement, as she became hypokal emic during this time as well. However, when she got home, she restarted her Lasix of 80 mg a day an d within 3 to 4 days, she started feeling bad again, had retention of fluid, became dyspneic and was seen in the office. Chemistries were done, revealed a creatinine over 3 with baseline and ob viously as a medication problem with her diuresis and hydration, she was admitted for more intensive care. Past History: As above. The patient has also had a long history of cardiorenal hypertension, nephro sclerosis, hyperlipidemia, COPD, CHF, diastolic with normal ejection fraction, cholecystectomy, knee replacement. Gastric binding was done over that period of time as well, however, none of them as of late. Family History: Noncontributory. Social History: The patient stopped smoking a number of years ago; however, at 1 time, was quite hea vy smoking up to 3 packs a day. No significant alcohol consumption. Physical Examination: HEAD AND NECK: Normocephalic. Pupils equal and reactive to light and accommodation. Fundi negative. Trachea midline. Thyroid not palpable. ENT: Negative. CHEST: Occasional rales at bases. Adequate air entry and movement bilaterally. CARDIOVASCULAR: PMI midclavicular line. Heart sounds normal. Peripheral pulses present and equal bi laterally. ABDOMEN: No organomegaly. Bowel sounds present. EXTREMITIES: +1 pitting edema bilaterally. Good tone and movement bilaterally. Reflexes physiologic . RECTAL: Deferred. PELVIC: Deferred. Impression: Acute kidney injury. Dehydration. Hypertension, poor control. Chronic obstructive pulmonary disease. Congestive heart failure. Plan: Patient will be admitted, rehydrated using normal saline and once this is accomplished dependi ng on the results of her creatinine and BUN, a modified diuresis will be attempted using a different combination obviously of the spironolactone and Lasix. Consultation was obtained with her nephrologi st who had recently see her while she was hospitalized on the last admission and also the pulmonologi st. Depending on the results, patient should be able to be managed on an outpatient basis within the next few days. HR/MODL Voice ID: [id number]
[2021-06-30 01:12] LABS: UR PROTEIN 90.3 mg/dL (<11.9); Urine Protein/Creatinine Ratio 0.97 ratio (<0.15)
[2021-06-30 06:20] LABS: Absolute Lymphocytes (CBC) 1.2 K/uL (0.7-4.9); Basophils % 1.2 % (0-1.3); Hematocrit 28.1 % (36.0-45.0); Lymphocytes % 14.6 % (15.3-44.8); MPV 8.5 fL (7.6-11.3); RBC Red Blood Cell Count 3.27 M/uL (3.86-4.86)
[2021-06-30 06:39] LABS: Potassium 4.6 mmol/L (3.5-5.1)
[2021-06-30] MEDS: LEVOTHYROXINE SOD 0.125 MG TAB PO SCH (07:13)
[2021-06-30] MEDS: INSULIN -REGULAR HUMAN 50 UNIT/0.5 ML ML SQ SCH ×4 (07:30→22:01)
--- NOTE | 2021-06-30 08:10 | P.PN ---
Subjective Date of Service: 06/30/21 Primary Care Provider: Dr. Mann. I am covering for him Subjective: Improving, Doing well Physical Examination - Vital Signs Temperature: 97.4 F Blood Pressure: 129/61 Pulse: 52 Respirations: 18 Pulse Ox (%): 97 - Studies Laboratory Data (last 24 hrs) 06/30/21 05:48: WBC 8.20 D, Hgb 9.1 L, Hct 28.1 L, Plt Count 179 06/30/21 05:48: Sodium 140, Potassium 4.6, BUN 62 H, Creatinine 2.79 H, Glucose 168 H, Phosphorus 6.0 H Assessment & Plan Discharge Plan: Home Plan to discharge in: 24 Hours Physician Review Additional Text: COVID: negative Physical Examination: Vital Signs: Blood pressure 116/57, pulse of 46, afebrile. Chest: Clear. Currently on 2 L per nasal cannula. Heart: S1, S2. Regular. Abdomen: Soft, nontender. Extremities: Trace edema to the lower extremities Neurologic: Alert. No focality. No tremor. Current Medications: The patient on include amlodipine 10 mg, atorvastatin, spironolactone 5 mg, bupropion, Lexapro, gabapentin, pantoprazole, levothyroxine. Impression: Acute on chronic renal disease stage IV with overdiuresis complicated with cardiorenal syndrome, hypercalcemia secondary to hyperparathyroidism and cardiorenal syndrome, chronic diastolic CHF Hyperlipidemia Hypothyroidism Depression Restless leg syndrome Hypertension Atrial fibrillation on chronic anticoagulation Plan: Acute on chronic renal disease stage 4 with overdiuresis complicated with cardiorenal syndrome, hypocalcemia secondary to hyperparathyroidism and cardiorenal syndrome, chronic diastolic CHF: Case discussed at length with PCP and nephrology. Nephrology has adjusted diuretic therapy. Patient now back on Lasix. Will monitor closely on this. Patient remains on 2 L per nasal cannula. Patient uses home oxygen. If improved with renal function by tomorrow consider discharge. Hyperlipidemia: Continue Lipitor Hypothyroidism: Continue levothyroxine Depression: Continue bupropion, Lexapro Restless leg syndrome: Continue primidone 50 mg daily and Requip 2 mg 1 pill twice daily Hypertension: Patient has been on carvedilol. Blood pressure stable off m edication at this time. Will monitor closely. If blood pressure remains elevated consider restarting carvedilol at low-dose. Atrial fibrillation on chronic anticoagulation therapy: Continue Eliquis CODE STATUS: Full code DVT prophylaxis: Eliquis Advanced care planning: Home at discharge Time Spent Managing Pts Care (In Minutes): 55
--- NOTE | 2021-06-30 10:30 | P.PN ---
Subjective Date of Service: 06/30/21 Chief Complaint: Chronic shortness of breath, Subjective: No new changes, Tolerating diet, Ambulating, Improving, Doing well The patient was admitted with acute kidney injury secondary to over diuresis. Started IV fluid and hold the Lasix and spironolactone. Orthostatic was negative. her blood pressure is still marginally on the lower side with bradycardia. The patient's shortness of breath did not get worse even though that the patient was maintained on IV fluid without any diuresis. then Yesterday IV fluid was DC'd Review of Systems General: Unremarkable ENT: Unremarkable Respiratory: Cough, Shortness of Breath, SOB with Excertion Cardiovascular: Light Headedness, Unremarkable Gastrointestinal: Unremarkable Genitourinary: Unremarkable Musculoskeletal: Back Pain Neurological: Weakness Physical Examination - Vital Signs Temperature: 97.4 F Blood Pressure: 129/61 Pulse: 52 Respirations: 18 Pulse Ox (%): 97 - Physical Exam General: Alert HEENT: Atraumatic Neck: Supple, Without JVD or thyroid abnormality Respiratory: Rhonchi/gurgles Cardiovascular: Normal S1 S2, Edema, Systolic murmur Gastrointestinal: Normal bowel sounds, No ascites, No tenderness, No rebound, No guarding, Other (Morbidly obese) Musculoskeletal: No clubbing, No erythema, No tenderness Neurological: Normal gait, Normal strength at 5/5 x4 extr, Cranial nerves 3-12 intact - Studies Laboratory Data (last 24 hrs) 06/30/21 05:48: WBC 8.20 D, Hgb 9.1 L, Hct 28.1 L, Plt Count 179 06/30/21 05:48: Sodium 140, Potassium 4.6, BUN 62 H, Creatinine 2.79 H, Glucose 168 H, Phosphorus 6.0 H Imagings Data: waiting for chest x-ray today Assessment And Plan Physician Review Additional Text: Current Medications: The patient on include amlodipine 10 mg, atorvastatin, spironolactone 5 mg, bupropion, Lexapro, gabapentin, pantoprazole, levothyroxine. Assessment And Plan: 1. Acute kidney injury secondary to over diuresis, looked to me normal volume currently. I am going to keep holding spironolactone, and IV fluid. We will monitor the patient. We will send for chest x-ray will get chest x-ray to evaluate her fluid status depending on that will decide to resume Lasix mostly she can need 40 mg daily with close monitoring if patient continued to improve and her kidney function patient will be clear from the renal standpoint for DC planning tomorrow 2. Hypertension, currently blood pressure on the lower side. Discontinue spironolactone. We will discontinue amlodipine and we will monitor the patient. 3. Secondary hyperparathyroidism with hyperphosphatemia. Calcium is trending up continue on Tums. 4. Hypocalcemia secondary to secondary hyperparathyroidism. Calcium is trending up continue on Tums. We will monitor. 5. Edema secondary to cardiorenal. The patient had diastolic dysfunction, currently normal volume. I do not see the need for amlodipine. No need for spironolactone as there is no hyperaldosteronism picture currently no pulmonary hypertension. will get chest x-ray to evaluate her fluid status depending on that will decide to resume Lasix mostly she can need 40 mg daily with close monitoring 6. Edema, multifactorial, possible secondary to cardiorenal, questionable if it is secondary to gabapentin. We will continue the gabapentin to 200 b.i.d. and consider to taper down further and we will monitor the patient's neuropathy symptoms. Hold the diuresis for the time being given the low blood pressure and acute kidney injury and we will follow up. 7. Urinary tract infection. Culture negative. We will follow up with primary. Time spent examining [id number] the patient placing order, discussing with the patient, discussing with the staff include nursing discussing with all of our subspecialty and team care including hospitalist 35-minute
[2021-06-30] MEDS: CALCIUM CARBONATE CHEW 500MG TAB PO SCH ×3 (10:31→15:44)
[2021-06-30] MEDS: PANTOPRAZOLE 40MG TABLET PO SCH ×2 (10:31→21:50)
[2021-06-30] MEDS: ROPINIROLE HCL 1 MG TAB PO SCH ×2 (10:31→21:51)
[2021-06-30] MEDS: APIXABAN 2.5 MG TABLET PO SCH ×2 (10:31→21:50)
[2021-06-30] MEDS: GABAPENTIN 100 MG CAP PO SCH ×2 (10:31→21:51)
[2021-06-30] MEDS: DONEPEZIL HCL 5 MG TAB PO SCH (10:31)
[2021-06-30] MEDS: ESCITALOPRAM 20 MG TAB PO SCH ×2 (10:32→21:52)
--- NOTE | 2021-06-30 11:22 | RAD REPORT ---
EXAM DESCRIPTION: RAD - Chest Single View - 06/30/2021 11:01 am CLINICAL HISTORY: COPD COMPARISON: Chest Single View dated 06/28/2021; Chest Single View dated 06/17/2021; Chest Single View dated 06/15/2021; Chest Pa And Lat (2 Views) dated 05/03/2021 FINDINGS: Lines: None. Lungs: No evidence of edema or pneumonia. Pleural: No significant pleural effusions or pneumothorax. Cardiac: The heart size is within normal limits. Bones: No acute fractures. Left shoulder arthroplasty. Other: IMPRESSION: No acute cardiopulmonary disease. No significant change.
[2021-06-30] MEDS: ATORVASTATIN 10 MG TAB PO SCH (21:51)
[2021-06-30] MEDS: PRIMIDONE 50 MG TAB PO SCH (21:53)
[2021-06-30] MEDS: BUPROPRION HCL S.R. 150MG TAB PO SCH (21:53)
--- NOTE | 2021-07-01 06:05 | P.PN ---
Subjective Date of Service: 07/01/21 Primary Care Provider: Dr. Mann. I am covering for him Chief Complaint: Chronic shortness of breath, Subjective: Improving, Doing well Physical Examination - Vital Signs Temperature: 97.4 F Blood Pressure: 126/56 Pulse: 104 Respirations: 20 Pulse Ox (%): 91 - Physical Exam General: Alert, In no apparent distress, Oriented x3, Cooperative HEENT: Atraumatic Neck: Supple Respiratory: Clear to auscultation bilaterally, Other (Currently on 2 L per nasal cannula) Cardiovascular: Normal pulses, Regular rate/rhythm Gastrointestinal: Normal bowel sounds, No tenderness, No masses, No rebound, No guarding Musculoskeletal: No tenderness, No warmth Integumentary: Other (No significant edema. Very mild) Neurological: Normal speech, Normal strength at 5/5 x4 extr, Normal tone, Normal affect - Studies Laboratory Data (last 24 hrs) 06/30/21 05:48: WBC 8.20 D, Hgb 9.1 L, Hct 28.1 L, Plt Count 179 06/30/21 05:48: Sodium 140, Potassium 4.6, BUN 62 H, Creatinine 2.79 H, Glucose 168 H, Phosphorus 6.0 H Medications List Reviewed: Yes Assessment & Plan Discharge Plan: Home Plan to discharge in: 24 Hours Physician Review Additional Text: COVID: negative Renal US: COMPARISON: Renal Ultrasound-Complete dated 06/16/2021 FINDINGS: The right kidney measures 10.4 cm in long axis. Left kidney measures 9.1 cm in long axis. 11 mm cyst in the interpolar aspect of the left kidney. 18 mm cyst in the upper pole the right kidney. There is a 2.7 cm cyst in the lower pole of the right kidney. No hydronephrosis. Increased echogenicity renal cortex consistent with medical renal disease. The bladder is unremarkable. IMPRESSION: No evidence of hydronephrosis . Increased echogenicity of the renal cortices consistent with medical renal disease. Bilateral renal cysts. Follow up CXR 06/30/2021: COMPARISON: Renal Ultrasound-Complete dated 06/16/2021 FINDINGS: The right kidney measures 10.4 cm in long axis. Left kidney measures 9.1 cm in long axis. 11 mm cyst in the interpolar aspect of the left kidney. 18 mm cyst in the upper pole the right kidney. There is a 2.7 cm cyst in the lower pole of the right kidney. No hydronephrosis. Increased echogenicity renal cortex consistent with medical renal disease. The bladder is unremarkable. IMPRESSION: No evidence of hydronephrosis . Increased echogenicity of the renal cortices consistent with medical renal disease. Bilateral renal cysts. Physical Examination: Vital Signs: Blood pressure 116/57, pulse of 46, afebrile. Chest: Clear. Currently on 2 L per nasal cannula. Heart: S1, S2. Regular. Abdomen: Soft, nontender. Extremities: Trace edema to the lower extremities Neurologic: Alert. No focality. No tremor. Current Medications: The patient on include amlodipine 10 mg, atorvastatin, spironolactone 5 mg, bupropion, Lexapro, gabapentin, pantoprazole, levothyroxine. Impression: Acute on chronic renal disease stage IV with overdiuresis complicated with cardiorenal syndrome, hypercalcemia secondary to hyperparathyroidism and cardiorenal syndrome, chronic diastolic CHF Hyperlipidemia Hypothyroidism Depression Restless leg syndrome Hypertension Atrial fibrillation on chronic anticoagulation Plan: Acute on chronic renal disease stage 4 with overdiuresis complicated with cardiorenal syndrome, hypocalcemia secondary to hyperparathyroidism and cardiorenal syndrome, chronic diastolic CHF: Patient doing well at this time. Case discussed with nephrology. Renal function improved. Patient will continue with Lasix 40 mg at discharge. Continue with home oxygen. Patient will need to follow-up with nephrology with repeat lab in 1 week. Patient will continue with 1500 cc/day fluid restriction. Hyperlipidemia: Continue Lipitor Hypothyroidism: Continue levothyroxine Depression: Continue bupropion, Lexapro Restless leg syndrome: Continue primidone 50 mg daily and Requip 2 mg 1 pill twice daily Hypertension: Patient has been on carvedilol. Blood pressure stable off medication at this time. Will monitor closely. If blood pressure remains elevated consider restarting carvedilol at low-dose. Atrial fibrillation on chronic anticoagulation therapy: Continue Eliquis CODE STATUS: Full code DVT prophylaxis: Eliquis Advanced care planning: Home at discharge Time Spent Managing Pts Care (In Minutes): 55
[2021-07-01 06:26] LABS: Albumin 2.9 g/dL (3.4-5.0); Phosphorus 4.3 mg/dL (2.5-4.9); Potassium 4.2 mmol/L (3.5-5.1)
--- NOTE | 2021-07-01 06:44 | P.PN ---
Subjective Date of Service: 07/01/21 Primary Care Provider: Dr. Mann. I am covering for him Chief Complaint: Chronic shortness of breath, Physical Examination - Vital Signs Temperature: 97.4 F Blood Pressure: 126/56 Pulse: 104 Respirations: 20 Pulse Ox (%): 91 - Studies Laboratory Data (last 24 hrs) 07/01/21 05:50: Sodium 144, Potassium 4.2, BUN 53 H, Creatinine 2.43 H, Glucose 123 H, Phosphorus 4.3
[2021-07-01] MEDS: LEVOTHYROXINE SOD 0.125 MG TAB PO SCH (06:50)
[2021-07-01] MEDS: INSULIN -REGULAR HUMAN 50 UNIT/0.5 ML ML SQ SCH ×2 (07:30→11:30)
[2021-07-01] MEDS ORDERED: FUROSEMIDE 40 MG TABLET PO SCH (09:00)
[2021-07-01 09:09] VITALS: O2SAT 95
[2021-07-01] MEDS: ROPINIROLE HCL 1 MG TAB PO SCH (09:21)
[2021-07-01] MEDS: ESCITALOPRAM 20 MG TAB PO SCH (09:22)
[2021-07-01] MEDS: APIXABAN 2.5 MG TABLET PO SCH (09:22)
[2021-07-01] MEDS: DONEPEZIL HCL 5 MG TAB PO SCH (09:22)
[2021-07-01] MEDS: GABAPENTIN 100 MG CAP PO SCH (09:22)
[2021-07-01] MEDS: PANTOPRAZOLE 40MG TABLET PO SCH (09:22)
[2021-07-01] MEDS: CALCIUM CARBONATE CHEW 500MG TAB PO SCH ×2 (09:22→11:30)
[2021-07-01 10:15] VITALS: BP 126/56; TEMP 97.4
--- NOTE | 2021-07-01 10:16 | P.DS ---
Admission Date: 06/30/21 Discharge Date: 07/01/21 Primary Care Provider: Dr. Mann. I am covering for him Disposition: DC HOME/HOME HEALTH CARE Discharge Condition: GOOD Reason for Admission: Chronic shortness of breath, Consultations: Nephrology-Dr. Bethea Pulmonary-Dr. Gonsalez Procedures: COVID: negative Renal US: COMPARISON: Renal Ultrasound-Complete dated 06/16/2021 FINDINGS: The right kidney measures 10.4 cm in long axis. Left kidney measures 9.1 cm in long axis. 11 mm cyst in the interpolar aspect of the left kidney. 18 mm cyst in the upper pole the right kidney. There is a 2.7 cm cyst in the lower pole of the right kidney. No hydronephrosis. Increased echogenicity renal cortex consistent with medical renal disease. The bladder is unremarkable. IMPRESSION: No evidence of hydronephrosis . Increased echogenicity of the renal cortices consistent with medical renal disease. Bilateral renal cysts. Follow up CXR 06/30/2021: COMPARISON: Renal Ultrasound-Complete dated 06/16/2021 FINDINGS: The right kidney measures 10.4 cm in long axis. Left kidney measures 9.1 cm in long axis. 11 mm cyst in the interpolar aspect of the left kidney. 18 mm cyst in the upper pole the right kidney. There is a 2.7 cm cyst in the lower pole of the right kidney. No hydronephrosis. Increased echogenicity renal cortex consistent with medical renal disease. The bladder is unremarkable. IMPRESSION: No evidence of hydronephrosis . Increased echogenicity of the renal cortices consistent with medical renal disease. Bilateral renal cysts. 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 Patient has been reporting some shortness of breath and dizziness. Patient had been recently discharged with diuretic therapy. Patient seen by nephrology with abnormal renal function. Patient admitted for further evaluation and treatment. Hospital Course: Patient presented with acute on chronic renal disease stage IV related to likely overdiuresis complicated with cardiorenal syndrome. Patient also found to have hypocalcemia secondary to hyperparathyroidism. Patient with history of chronic diastolic CHF. On her recent hospitalization patient had been sent home with changes in her diuretic therapy. It appears the patient continued to take Lasix with additional medication Aldactone. This is what likely led to her overdiuresis and renal failure. Patient was seen by nephrology. Patient has continued to improve with better renal function. Patient appears to be back to her baseline clinically. Creatinine 2.43 with a GFR of 19 at this time. Case discussed at length with nephrology. Patient will be discharged home today. At discharge Aldactone has been discontinued. Patient will continue with Lasix 40 mg daily. At discharge patient will continue with the 1500 cc/day fluid restriction and low-salt diet. Patient will also continue with Tums 1000 mg every day. Recommend to monitor her weight daily. Recommend to recheck labCMP within 1 week. Recommend follow-up with PCP in 1 week. Recommend follow-up with nephrology in 1 to 2 weeks to follow-up his hospitalization and further address her condition. As mentioned above patient with chronic diastolic CHF. Medications have been adjusted. Patient will continue with fluid restriction as above. Patient will continue with Lasix only 40 mg daily. Aldactone has been discontinued. Continue with above recommendations. Patient uses home oxygen. At discharge she will continue with home oxygen to maintain sats above 93%. Currently on 2 L per nasal cannula. At discharge she will continue with home health and physical therapy. Fall precautions in place. Patient with hypertension. Medications have been adjusted during the course of her stay. Norvasc has been discontinued. Patient previously on carvedilol 6.25 mg twice daily. Patient has been stable on carvedilol at 3.125 mg 1 pill twice daily. Recommend to monitor her blood pressures daily. Recommend to maintain blood pressure less than 130/80. Further adjustment in her medication may be required. This can be done with the help of her PCP. Patient with history of atrial fibrillation on chronic anticoagulation therapy. At discharge patient will continue with Eliquis 2.5 mg 1 pill twice daily. Patient with hypothyroidism. At discharge patient will continue with levothyroxine 125 mcg daily. Patient with hyperlipidemia. At discharge patient will continue with lovastatin 20 mg daily. Patient with GERD. At discharge patient will continue with Protonix 40 mg 1 pill twice daily. Patient with restless leg syndrome. At discharge patient will continue with primidone 50 mg at bedtime and Requip 2 mg 1 pill twice daily. Patient with underlying dementia. At discharge patient will continue with Aricept 10 mg daily. Patient with depression. At discharge she will continue with bupropion 150 mg 1 pill at bedtime and Lexapro 20 mg 1 pill twice daily. Vital Signs/Physical Exam: Temp Pulse Resp BP Pulse Ox 97.4 F 104 H 20 126/56 L 91 07/01/21 10:15 07/01/21 10:15 07/01/21 10:15 07/01/21 10:15 07/01/21 10:15 General: Alert, In no apparent distress, Oriented x3, Cooperative HEENT: Atraumatic Neck: Supple Respiratory: Clear to auscultation bilaterally, Other (2 L per nasal cannula) Cardiovascular: Normal pulses, Regular rate/rhythm Gastrointestinal: Normal bowel sounds, No tenderness, No masses, No rebound, No guarding Musculoskeletal: No tenderness, No warmth Integumentary: No tenderness/swelling, Other (Minimal pitting edema) Neurological: Normal speech, Normal strength at 5/5 x4 extr, Normal tone, Normal affect Laboratory Data at Discharge: WBC 8.20 K/uL (4.3-10.9) D 06/30/21 05:48 Hgb 9.1 g/dL (12.0-15.0) L 06/30/21 05:48 Hct 28.1 % (36.0-45.0) L 06/30/21 05:48 Plt Count 179 K/uL (152-406) 06/30/21 05:48 Sodium 144 mmol/L (136-145) 07/01/21 05:50 Potassium 4.2 mmol/L (3.5-5.1) 07/01/21 05:50 BUN 53 mg/dL (7-18) H 07/01/21 05:50 Creatinine 2.43 mg/dL (0.55-1.3) H 07/01/21 05:50 Glucose 123 mg/dL (74-106) H 07/01/21 05:50 Uric Acid 11.3 mg/dL (2.6-6.0) H 06/29/21 05:43 Phosphorus 4.3 mg/dL (2.5-4.9) 07/01/21 05:50 Home Medications: Escitalopram Oxalate [Lexapro] 20 mg PO BID 11/19/11 Gabapentin [Neurontin] 300 mg PO BID 11/19/11 Levothyroxine [Synthroid*] 125 mcg PO DAILY 11/19/11 Ropinirole HCl 2 mg PO BID 11/19/11 Donepezil HCl [Aricept] 10 mg PO DAILY 10/03/17 Lovastatin 20 mg PO BEDTIME 10/03/17 buPROPion HCl [Bupropion HCl Sr] 150 mg PO BEDTIME 06/17/19 Apixaban [Eliquis] 0.5 tab PO BID 06/28/21 Pantoprazole [Protonix Tab*] 1 tab PO BID 06/28/21 Primidone 1 tab PO BEDTIME 06/28/21 Calcium Carbonate [Tums Regular*] 1,000 mg PO AC #60 tab 07/01/21 Furosemide [Lasix*] 40 mg PO DAILY #30 tab 07/01/21 Gabapentin [Neurontin*] 200 mg PO BID #120 cap 07/01/21 carvediloL [Coreg*] 3.125 mg PO BID 6AM 6PM #60 tab 07/01/21 New Medications: carvediloL [Coreg*] 3.125 mg PO BID 6AM 6PM #60 tab Furosemide [Lasix*] 40 mg PO DAILY #30 tab Gabapentin [Neurontin*] 200 mg PO BID #120 cap Calcium Carbonate [Tums Regular*] 1,000 mg PO AC #60 tab Physician Discharge Instructions: Patient presented with acute on chronic renal disease stage IV related to likely overdiuresis complicated with cardiorenal syndrome. Patient also found to have hypocalcemia secondary to hyperparathyroidism. Patient with history of chronic diastolic CHF. On her recent hospitalization patient had been sent home with changes in her diuretic therapy. It appears the patient continued to take Lasix with additional medication Aldactone. This is what likely led to her overdiuresis and renal failure. Patient was seen by nephrology. Patient has continued to improve with better renal function. Patient appears to be back to her baseline clinically. Creatinine 2.43 with a GFR of 19 at this time. Case discussed at length with nephrology. Patient will be discharged home today. At discharge Aldactone has been discontinued. Patient will continue with Lasix 40 mg daily. At discharge patient will continue with the 1500 cc/day fluid restriction and low-salt diet. Patient will also continue with Tums 1000 mg every day. Recommend to monitor her weight daily. Recommend to recheck labCMP within 1 week. Recommend follow-up with PCP in 1 week. Recommend follow-up with nephrology in 1 to 2 weeks to follow-up his hospitalization and further address her condition. As mentioned above patient with chronic diastolic CHF. Medications have been adjusted. Patient will continue with fluid restriction as above. Patient will continue with Lasix only 40 mg daily. Aldactone has been discontinued. Continue with above recommendations. Patient uses home oxygen. At discharge she will continue with home oxygen to maintain sats above 93%. Currently on 2 L per nasal cannula. At discharge she will continue with home health and physical therapy. Fall precautions in place. Patient with hypertension. Medications have been adjusted during the course of her stay. Norvasc has been discontinued. Patient previously on carvedilol 6.25 mg twice daily. Patient has been stable on carvedilol at 3.125 mg 1 pill twice daily. Recommend to monitor her blood pressures daily. Recommend to maintain blood pressure less than 130/80. Further adjustment in her medication may be required. This can be done with the help of her PCP. Patient with history of atrial fibrillation on chronic anticoagulation therapy. At discharge patient will continue with Eliquis 2.5 mg 1 pill twice daily. Patient with hypothyroidism. At discharge patient will continue with levothyroxine 125 mcg daily. Patient with hyperlipidemia. At discharge patient will continue with lovastatin 20 mg daily. Patient with GERD. At discharge patient will continue with Protonix 40 mg 1 pill twice daily. Patient with restless leg syndrome. At discharge patient will continue with primidone 50 mg at bedtime and Requip 2 mg 1 pill twice daily. Patient with underlying dementia. At discharge patient will continue with Aricept 10 mg daily. Patient with depression. At discharge she will continue with bupropion 150 mg 1 pill at bedtime and Lexapro 20 mg 1 pill twice daily. Diet: AHA Activity: Ad ila Followup: Villa Mann MD [Primary Care Provider] - Time spent managing pt's care (in minutes): 55
[2021-07-01] MEDS ORDERED: carvediloL 3.125 MG TAB PO SCH (18:00)
--- NOTE | 2021-07-02 11:15 | EKG ---
Test Date: 2021-07-01 Test Time: 00:39:44 Brim Stitcher: RT MEASUREMENT RESULTS: Intervals: Rate: 72 IA: 252 QRSD: 120 QT: 412 QTc: 451 Moffit: P: 83 IA: 252 QRS: -27 T: 30 INTERPRETIVE STATEMENTS: Sinus rhythm with 1st degree AV block Left ventricular hypertrophy with QRS widening Abnormal ECG Compared to ECG 06/18/2021 05:42:00 First degree AV block now present Atrial fibrillation no longer present Left-axis deviation no longer present ST (T wave) deviation no longer present Electronically Signed On 07-02-21 11:13:20 CDT by Omid Mckeon
== END 2021-07-01 11:30 | disposition home health service (06) | DRG 292 ==
LOC: 2ND 12:21 → OBSVTOIN 06-30 08:08
PROVIDERS: ADMIT Family Medicine; ATTEND Family Medicine
DX: I13.0 Hypertensive heart and chronic kidney disease with heart failure and stage 1 through stage 4 chronic kidney disease, or unspecified chronic kidney disease (principal); N18.4 Chronic kidney disease, stage 4 (severe); I50.32 Chronic diastolic (congestive) heart failure; N17.9 Acute kidney failure, unspecified; N25.81 Secondary hyperparathyroidism of renal origin; E78.5 Hyperlipidemia, unspecified; E03.9 Hypothyroidism, unspecified; F32.A Depression, unspecified; G25.81 Restless legs syndrome; I48.91 Unspecified atrial fibrillation; F03.90 Unspecified dementia, unspecified severity, without behavioral disturbance, psychotic disturbance, mood disturbance, and anxiety; J44.9 Chronic obstructive pulmonary disease, unspecified; E86.0 Dehydration; E87.5 Hyperkalemia; Z96.659 Presence of unspecified artificial knee joint; Z79.01 Long term (current) use of anticoagulants
CPT/HCPCS: 36415; 71045; 76770; 80048; 80069; 81001; 82570; 82947; 83880; 84156; 84443; 84550; 85025; 87077; 87086; 87088; 87186; 93005; G0378; G0379; J7030

== ENCOUNTER 2021-12-30 15:28 | Emergency (ER) | payer MEDICARE ==
--- OUTSIDE RECORDS SUMMARY | 2021-12-30 15:59 | XMS REPORT | Continuity of Care Document ---
:1940 Author Organization [facility] t Address [address] [place] [place] [address] Care Team Providers Name Role Phone GALLO Primary Care Physician Unavailable Maria E, S Attending Clinician Unavailable Canalkim_M Attending Clinician Unavailable Oilvia-Mbayo_A_AH Attending Clinician Unavailable Radha Jerez Attending Clinician [phone] Angela ADAMS S Attending Clinician Yocasta HEREDITARY CANCER PROGRAM COORDINATOR, G Attending Clinician Timothy WOLFE Attending Clinician TIMOTHY Attending Clinician Unavailable Physician, Primary or Family Admitting Clinician Unavailabl e Solitario_M Admitting Clinician Unavailable Olivia-Mbayo_A_AH Admitting Clinician Unavailable TIMOTHY Admitting Clinician Unavailable Payers Payer Name Policy Type Policy Number Effective Date Expiration Date Carla peterson [facility] IFEANYI [facility] [id number] 2019 CLASSIC/VALUE 00:00:00 [facility] [id number] (MEDICARE 00:00:00 REPLACEMENT HMO) [employer] [facility] [place] - [id number] 2019 AG (MEDICARE 00:00:00 REPLACEMENT/ADVANTA GE - HMO) Problems Condition Condition Condition Status Onset Resolution Last Treating Co mments Source Name Details Category Date Date Treatment Clinician Date Morbid Morbid Disease Active Univers obesity obesity 8-31 ity of 00:00: [address] Allergies, Adverse Reactions, Alerts Allergy Allergy Status Severity Reaction(s) Onset Inactive Treating Comm ents Source Name Type Date Date Clinician ADHESIVE DRUG Active Med Rash Univers TAPE-BRIGETTE 8-30 ity of ICONES 00:00: [place] [address] Medical Branch MOXIFLOX DRUG Active Med Rash Univers ACIN HCL INGREDI 8-30 ity of 00:00: [place] [address] Medical Branch Adhesive Propensi Active Rash Univer s Tape-Brigette ty to 8-30 ity of icones adverse 00:00: [place] reaction 00 Medical s to Branch drug Moxiflox Propensi Active Rash Univer s acin Hcl ty to 8-30 ity of adverse 00:00: [place] reaction 00 Medical s to Branch drug moxiflox DA Active U [facility] acin HCl 2-15 [place] 00:00: [address] BANDAIDS DA Active [facility] ADHESIVE 2-15 [place] 00:00: [address] Social History Social Habit Start Date Stop Date Quantity Comments Source Exposure to Not sure [facility]-CoV-2 [facility] (event) [place] Alcohol Comment Occasional Drinker [facility] Sex Assigned At [facility] Alcohol intake 2020-06-28 2020-06-28 Current drinker of Un iversity of 00:00:00 00:00:00 alcohol (finding) [facility] Tobacco use and 2020-06-28 2020-06-28 Never used Universit y of exposure 00:00:00 00:00:00 [facility] Smoking Status Start Date Stop Date Source Never smoker [facility] Medications Ordered Filled Start Stop Current Ordering Indication Dosage Frequency Signature Comments Components Source Medication Medication Date Date Medication? Clinician (SIG) Name Name HYDROcodone 2020- No 1{tbl} 1 tablet, Univers -acetaminop 06-28 Oral, ity of hen (NORCO 20:30: 19:23 ONCE, 1 [place] as 5) 5-325 mg 00 :00 dose, Mon Med ical tablet 1 06/28/20 at [facility] h tablet 1530, DIMITRIS metoprolol 2019- 2020- No 50mg 50 mg, Univ ers succinate 06-28 Oral, ity of XL (TOPROL 18:15: 17:25 ONCE, 1 [place] as XL) tablet 00 :00 dose, Mon Medi tania 50 mg 06/28/20 at Branch 1315, Routine lisinopriL 2019- 2020- No 40mg 40 mg, Univ ers (PRINIVIL,Z 06-28 Oral, ity of ESTRIL) 18:15: 17:25 ONCE, 1 [place] tablet 40 00 :00 dose, Mon Medic al mg 06/28/20 at Branch 1315, Routine amLODIPine 2019- No 5mg 5 mg, Unive rs (NORVASC) 06-28 Oral, ity of tablet 5 mg 18:15: 17:25 [place], Mon Medical 06/28/20 at Branch 1315, DIMITRIS FENTanyl PF 2020- No 25ug 25 mcg, Un martha (SUBLIMAZE 06-28 Slow IV ity o f (PF)) 18:15: 17:30 Push, [place] injection 00 :00 ONCE, 1 Medical 25 mcg dose, Mon Branch 06/28/20 at 1315, STAT diphenoxyla 2019-0 Yes 1{tbl} Take 1 Un martha te-atropine 06-28 tablet by ity of (LOMOTIL) 17:14: mouth [place] 2.5-0.025 43 every 6 Medical mg tablet (six) Branch hours as needed. ALBUTEROL 2019-0 Yes Inhale. [facility] rs SULFATE 06-28 ity of INHALE 17:14: [place] 43 Medical Branch misoprostol 2019-0 2020- No 200ug Take 200 Univers (CYTOTEC) 06-28 mcg by ity of 200 mcg 17:13: 00:00 mouth [place] tablet 46 :00 daily. Medical Branch fenofibrate 2020- No 145mg Take 145 Univers (TRICOR) 06-28 mg by ity of 145 mg 17:13: 00:00 mouth [place] tablet 14 :00 daily. Medical Branch acetaminoph Yes [id number] 1{tbl} Take 1 Un martha en-codeine 9-28 tablet by ity of 300-30 mg 00:00: mouth [place] tablet 00 every 4 Medical (four) Branch hours as needed for Pain (scale 4-6). Indication s: acute pain sucralfate Yes [id number] .25[in_ Apply 0.25 Univers malate, 5- us] Inches as ity of polymerized 00:00: directed 4 [place] 1 gram/10 00 (four) Medical mL Pste times Branch daily as needed for Pain (scale 1-3). sucralfate 2020- No [id number] .25[in_ Apply 0.25 Univers malate, 02-18-28 us] Inches as ity of polymerized 00:00: 00:00 directed 4 [place] 1 gram/10 00 :00 (four) Medical mL Pste times Branch daily as needed for Pain (scale 1-3). acetaminoph 2017-10 Yes Univer s en-codeine 1-18 ity of 300-30 mg 00:00: [place] tablet 00 Medical Branch acetaminoph 2017-10 Yes Univer s en-codeine 1-18 ity of 300-30 mg 00:00: [place] tablet 00 Medical Branch acetaminoph 2017-10 2020- No Unive rs en-codeine 1-18 -28 ity of 300-30 mg 00:00: 00:00 [place] tablet 00 :00 Medical Branch lisinopril Yes 40mg Take 40 mg U nivers (PRINIVIL,Z 3-07 by mouth ity of ESTRIL) 40 17:04: daily. [place] mg tablet 36 Medical Branch escitalopra Yes 20mg Take 20 mg Univers m oxalate 3-07 by mouth 2 ity of (LEXAPRO) 17:04: (two) [place] 20 mg 36 times Medical tablet daily. Branch gabapentin Yes 600mg Take 600 Un martha (NEURONTIN) 3-07 mg by ity of 300 mg 17:04: mouth 2 [place] capsule 36 (two) Medical times Branch daily. omeprazole Yes 40mg Take 40 mg U nivers (PRILOSEC) 3-07 by mouth ity o f 40 mg 17:04: daily. [place] capsule 36 Medical Branch fenofibrate 2017-0 Yes 145mg Take 145 U nivers (TRICOR) 3-07 mg by ity of 145 mg 17:04: mouth [place] tablet 36 daily. Medical Branch metoprolol 20170 Yes 50mg Take 50 mg U nivers succinate 3-07 by mouth ity of XL (TOPROL 17:04: daily. [place] XL) 50 mg 36 Medical 24 hr Branch tablet rOPINIRole 20170 Yes 2mg Take 2 mg Un martha (REQUIP) 2 3-07 by mouth 2 ity of mg tablet 17:04: (two) [place] 36 times Medical daily. Branch levothyroxi 2017 Yes 125ug Take 125 U nivers ne 3-07 mcg by ity of (SYNTHROID) 17:04: mouth [place] 125 mcg 36 daily. Medical tablet Branch donepezil Yes 10mg Take 10 mg Un martha (ARICEPT) 3-07 by mouth ity of 10 mg 17:04: daily. [place] tablet 36 Medical Branch misoprostol Yes 200ug Take 200 U nivers (CYTOTEC) 3-07 mcg by ity of 200 mcg 17:04: mouth [place] tablet 36 daily. Medical Branch amLODIPine 2017 Yes 5mg Take 5 mg Un martha (NORVASC) 5 3-07 by mouth ity of mg tablet 17:04: daily. [place] [address] Medical Branch lovastatin 0 Yes 20mg Take 20 mg U nivers (MEVACOR) 3-07 by mouth ity of 20 mg 17:04: daily. [place] tablet 36 Medical Branch lisinopril 20170 Yes 40mg Take 40 mg U nivers (PRINIVIL,Z 3-07 by mouth ity of ESTRIL) 40 17:04: daily. [place] mg tablet 36 Medical Branch escitalopra 20170 Yes 20mg Take 20 mg Univers m oxalate 3-07 by mouth 2 ity of (LEXAPRO) 17:04: (two) [place] 20 mg 36 times Medical tablet daily. Branch gabapentin 2017 Yes 600mg Take 600 Un martha (NEURONTIN) 3-07 mg by ity of 300 mg 17:04: mouth 2 [place] capsule 36 (two) Medical times Branch daily. omeprazole 20170 Yes 40mg Take 40 mg U nivers (PRILOSEC) 3-07 by mouth ity o f 40 mg 17:04: daily. [place] capsule 36 Medical Branch fenofibrate 2017-0 Yes 145mg Take 145 U nivers (TRICOR) 3-07 mg by ity of 145 mg 17:04: mouth [place] tablet 36 daily. Medical Branch metoprolol 20170 Yes 50mg Take 50 mg U nivers succinate 3-07 by mouth ity of XL (TOPROL 17:04: daily. [place] XL) 50 mg 36 Medical 24 hr Branch tablet rOPINIRole 20170 Yes 2mg Take 2 mg Un martha (REQUIP) 2 3-07 by mouth 2 ity of mg tablet 17:04: (two) [place] 36 times Medical daily. Branch levothyroxi 2017 Yes 125ug Take 125 U nivers ne 3-07 mcg by ity of (SYNTHROID) 17:04: mouth [place] 125 mcg 36 daily. Medical tablet Branch donepezil Yes 10mg Take 10 mg Un martha (ARICEPT) 3-07 by mouth ity of 10 mg 17:04: daily. [place] tablet 36 Medical Branch misoprostol Yes 200ug Take 200 U nivers (CYTOTEC) 3-07 mcg by ity of 200 mcg 17:04: mouth [place] tablet 36 daily. Medical Branch amLODIPine 20170 Yes 5mg Take 5 mg Un martha (NORVASC) 5 3-07 by mouth ity of mg tablet 17:04: daily. [place] [address] Medical Branch lovastatin 0 Yes 20mg Take 20 mg U nivers (MEVACOR) 3-07 by mouth ity of 20 mg 17:04: daily. [place] tablet 36 Medical Branch lisinopril 20170 Yes 40mg Take 40 mg U nivers (PRINIVIL,Z 3-07 by mouth ity of ESTRIL) 40 17:04: daily. [place] mg tablet 36 Medical Branch escitalopra 20170 Yes 20mg Take 20 mg Univers m oxalate 3-07 by mouth 2 ity of (LEXAPRO) 17:04: (two) [place] 20 mg 36 times Medical tablet daily. Branch gabapentin 2017 Yes 600mg Take 600 Un martha (NEURONTIN) 3-07 mg by ity of 300 mg 17:04: mouth 2 [place] capsule 36 (two) Medical times Branch daily. omeprazole 2017-0 Yes 40mg Take 40 mg U nivers (PRILOSEC) 3-07 by mouth ity o f 40 mg 17:04: daily. [place] capsule Medical Branch metoprolol Yes 50mg Take 50 mg U nivers succinate 3-07 by mouth ity of XL (TOPROL 17:04: daily. [place] XL) 50 mg 36 Medical 24 hr Branch tablet rOPINIRole Yes 2mg Take 2 mg Un martha (REQUIP) 2 3-07 by mouth 2 ity of mg tablet 17:04: (two) [place] 36 times Medical daily. Branch levothyroxi Yes 125ug Take 125 U nivers ne 3-07 mcg by ity of (SYNTHROID) 17:04: mouth [place] 125 mcg 36 daily. Medical tablet Branch donepezil Yes 10mg Take 10 mg Un martha (ARICEPT) 3-07 by mouth ity of 10 mg 17:04: daily. [place] tablet Medical [place] amLODIPine Yes 5mg Take 5 mg Un martha (NORVASC) 5 3-07 by mouth ity of mg tablet 17:04: daily. [address] lovastatin Yes 20mg Take 20 mg U nivers (MEVACOR) 3-07 by mouth ity of 20 mg 17:04: daily. [place] tablet Medical [place] Vital Signs Vital Name Observation Time Observation Value Comments Source Systolic blood 2020-06-28 19:30:00 180 mm[Hg] Univer sity of pressure [facility] Diastolic blood 2020-06-28 19:30:00 82 mm[Hg] [facility] 2020-06-28 19:30:00 61 /min [facility] Respiratory rate 2020-06-28 19:13:00 17 /min [facility] Oxygen saturation in 2020-06-28 19:13:00 96 /min [facility] Arterial blood by [facility] Pulse oximetry Branch Body temperature 2020-06-28 16:54:[address] [facility] Body weight 2020-06-28 16:54:00 95.255 kg [facility] BMI 2020-06-28 16:54:00 42.41 kg/m2 [facility] Systolic blood 2020-06-28 19:30:00 180 mm[Hg] Univer sity of pressure [place] [facility] Diastolic blood 2020-06-28 19:30:00 82 mm[Hg] Unive rsity of pressure [place] [facility] Heart rate 2020-06-28 19:30:00 61 /min [facility] [place] [facility] Respiratory rate 2020-06-28 19:13:00 17 /min Univ ersity of [place] [facility] Oxygen saturation in 2020-06-28 19:13:00 96 /min University of Arterial blood by [facility] Pulse oximetry Branch Body temperature 2020-06-28 16:54:00 36.33 Tracee Univ ersity of [place] [facility] Body weight 2020-06-28 16:54:00 95.255 kg [facility] [place] [facility] BMI 2020-06-28 16:54:00 42.41 kg/m2 [facility] [place] [facility] Systolic blood 2020-02-19 19:23:00 160 mm[Hg] Univer sity of pressure [place] [facility] Diastolic blood 2020-02-19 19:23:00 84 mm[Hg] Unive rsity of pressure [place] [facility] Heart rate 2020-02-19 19:23:00 63 /min [facility] [place] [facility] Body temperature 2020-02-19 19:23:00 36.39 Tracee Univ ersity of [place] [facility] Respiratory rate 2020-02-19 19:23:00 15 /min Univ ersity of [place] [facility] Body height 2020-02-19 19:23:00 149.9 cm [facility] [place] [facility] Body weight 2020-02-19 19:23:00 99.791 kg [facility] [place] [facility] BMI 2020-02-19 19:23:00 44.43 kg/m2 [facility] [place] [facility] Oxygen saturation in 2020-02-19 19:23:00 96 /min University of Arterial blood by [facility] Pulse oximetry Branch Systolic blood 2020-02-19 19:23:00 160 mm[Hg] Univer sity of pressure [place] [facility] Diastolic blood 2020-02-19 19:23:00 84 mm[Hg] Unive rsity of pressure [place] [facility] Heart rate 2020-02-19 19:23:00 63 /min [facility] [place] [facility] Body temperature 2020-02-19 19:23:00 36.39 Tracee Univ ersity of [place] [facility] Respiratory rate 2020-02-19 19:23:00 15 /min Univ ersity of [place] [facility] Body height 2020-02-19 19:23:00 149.9 cm [facility] [place] [facility] Body weight 2020-02-19 19:23:00 99.791 kg [facility] [place] [facility] BMI 2020-02-19 19:23:00 44.43 kg/m2 [facility] [place] [facility] Oxygen saturation in 2020-02-19 19:23:00 96 /min University of Arterial blood by [facility] tania Pulse oximetry Branch Systolic blood 2019-12-10 04:00:00 202 mm[Hg] Univer sity of pressure [place] [facility] Diastolic blood 2019-12-10 04:00:00 92 mm[Hg] Unive rsity of pressure [place] [facility] Heart rate 2019-12-10 04:00:00 75 /min [facility] [place] [facility] Respiratory rate 2019-12-10 04:00:00 18 /min Univ ersity of [place] [facility] Oxygen saturation in 2019-12-10 04:00:00 98 /min University of Arterial blood by [facility] tania Pulse oximetry Branch Body temperature 2019-12-10 02:51:13 36.39 Tracee Univ ersity of [place] [facility] Body height 2019-12-10 02:28:00 162.6 cm [facility] [place] [facility] Body weight 2019-12-10 02:28:00 104.327 kg [facility] [place] [facility] BMI 2019-12-10 02:28:00 39.48 kg/m2 [facility] [place] [facility] Systolic blood 2019-12-10 04:00:00 202 mm[Hg] Univer sity of pressure [place] [facility] Diastolic blood 2019-12-10 04:00:00 92 mm[Hg] Unive rsity of pressure [place] [facility] Heart rate 2019-12-10 04:00:00 75 /min [facility] [place] [facility] Respiratory rate 2019-12-10 04:00:00 18 /min Univ ersity of [place] [facility] Oxygen saturation in 2019-12-10 04:00:00 98 /min University of Arterial blood by [facility] Pulse oximetry Branch Body temperature 2019-12-10 02:51:13 36.39 Tracee Univ ersity of [place] [facility] Body height 2019-12-10 02:28:00 162.6 cm [facility] Body weight 2019-12-10 02:28:00 104.327 kg [facility] BMI 2019-12-10 02:28:00 39.48 kg/m2 [facility] Procedures Procedure Date / Time Performed Performing Clinician Mike e XR FOREARM 2 VW RIGHT 2020-06-28 17:49:01 Sariah [facility] XR SHOULDER 2+ VW 2020-06-28 17:49:01 Sariah Miller [facility] CONSENT/REFUSAL FOR 2020-02-19 18:58:01 Doctor Unassigned, No Un [facility] DIAGNOSIS AND Name Medical [place] TREATMENT XR TIBIA FIBULA 2 VW 2019-12-10 03:20:47 Timi Hansen [facility] Encounters Start End Encounter Admission Attending Care Care Encounter Source Date/Time Date/Time Type Type Clinicians Facility Department ID 2021-10-26 Outpatient STLMLC STLMLC [id number] [facility] 13:00:46 [id number] [facility] 2021-10-26 Outpatient STLMLC STLMLC [id number] [facility] 12:25:20 [id number] [facility] 2021-10-26 Outpatient STLMLC STLMLC [id number] [facility] 12:16:59 [id number] [facility] 2021-10-05 Inpatient NCI Sanderson, [facility] ADMI [id number] [facility] 11:00:00 Anurag [id number] [facility] 2021-07-29 Emergency [facility] [id number] Univers 19:46:17 [facility] 2021-07-28 Emergency [facility] [id number] Univers 21:53:33 [facility] 2021-12-15 2021-12-15 ambulatory [facility]LMLC [facility]MLC [id number] [facility] 2021-12-08 2021-12-08 ambulatory [facility]LMLC [facility] [id number] [facility] 2021-11-29 2021-11-29 ambulatory [facility]LMLC [facility]ML[facility] [id number] [facility] 2021-11-21 2021-11-21 ambulatory [facility]LMLC [facility] [id number] [facility] 2021-10-26 2021-10-26 ambulatory [facility]LMLC [facility]LMLC [id number] [facility] 2021-10-17 2021-10-17 ambulatory [facility]LMLC STLMLC [id number] [facility] 2021-08-29 2021-08-29 Outpatient Canales_M DMG DMG [id number] [facility] 12:42:00 12:42:00 [id number] [facility] 2021-05-16 2021-05-16 Outpatient STLMLC STLMLC [id number] [facility] 2021-05-10 2021-05-10 Outpatient [facility]LMLC [facility]LMLC [id number] [facility] 2021-04-12 2021-04-12 Outpatient [facility]LMLC [facility] [id number] [facility] 2021-03-28 2021-03-28 Outpatient Renetta [facility] [id number] [facility] 05:32:00 05:32:00 _A_AH [id number] Family Practic e 2021-03-07 2021-03-07 Outpatient [facility]LMLC [facility]LML[facility] [id number] [facility] 2021-02-08 2021-02-08 Outpatient [facility]LMLC [facility] [id number] [facility]00 [facility] 2021-01-18 2021-01-18 [facility] [address] [place] [address] 01:43:00 01:43:00 _A_AH [id number] Family Practic e 2021-01-14 2021-01-14 Outpatient Canales_M DMG DMG [id number] [facility] 05:20:00 05:20:00 0416 Medica l Group 2021-01-14 2021-01-14 Outpatient Jerez, DMG DMG [id number] 00:00:00 00:00:00 Caitlyn [id number] Radha [id number] 2021-01-13 2021-01-13 Outpatient Canales_M DMG DMG [id number] [facility] 05:35:00 05:35:00 0415 Medica l Group 2021-01-12 2021-01-12 Outpatient Canales_M DMG DMG [id number] [facility] 04:16:00 04:16:00 0414 Medica l Group 2020-12-09 2020-12-09 Outpatient STLMLC [facility] [id number] [facility] 2020-12-09 2020-12-09 Outpatient STLC [facility]LC [id number] [facility]00 [facility] 2020-11-30 2020-11-30 Outpatient STLMLC [facility] [id number] [facility] 2020-10-28 2020-10-28 Outpatient STLC STLC [id number] [facility]00 [facility] 2020-10-25 2020-10-25 Outpatient STLC STLC [id number] [facility]00 [facility] 2020-09-29 2020-09-29 Outpatient STLMLC STLC [id number] [facility]00 [facility] 2020-06-28 2020-06-28 Emergency Miller, PERRI [id number] [facility] 11:51:00 15:02:00 Sariah [place] [id number] i ty of [place] [id number] [facility] [id number] [address] 2020-06-28 2020-06-28 [facility] [id number] 11:51:00 15:02:00 Sariah [place] [id number] [place] 4.2.7.2.6 Alvin [id number] [facility] 2020-02-19 2020-02-19 Emergency [facility], [facility] [id number] [facility] 14:18:56 16:04:00 Maria Luisa Gutierrez [id number] ity of [place] [id number] [facility] [id number] [address] 2020-02-19 2020-02-19 Emergency [facility] [id number] 14:18:56 16:04:00 Maria Luisa Gutierrez [id number] [place] [address] [place] [address] [id number] [facility] 2019-12-11 2019-12-11 [facility] 06:48:00 06:48:00 _A_AH [id number] Family Practic e 2019-12-11 2019-12-[address] 06:48:00 06:48:00 _A_AH [id number] Family Practic e 2019-12-09 2019-12-10 Emergency [facility] [id number] [facility] 21:28:34 00:05:00 Timi Gutierrez [id number] i ty of [place] [id number] [facility] [id number] [address] 2019-12-09 2019-12-10 Emergency [facility] [id number] Univers 21:28:34 00:05:00 TIMI dominique of [facility] 2019-12-09 2019-12-10 Emergency Hansen, [facility] [id number] 21:28:34 00:05:00 Timi Gutierrez [id number] [place] [id number] Alvin [id number] 2019-11-19 2019-11-19 Outpatient Renetta [facility] [id number] [facility] 07:16:00 07:16:00 _A_ [id number] Family Practic e Results Test Test Test Results Result Source Description Time Comments Comments XR SHOULDER 2+ 2020-06- Comminuted distal Un iversity of VW RIGHT 28 clavicle fracture. EXAM: [facility] 17:54:27 XR SHOULDER 2+ VW RIGHT B [place] HISTORY: shoulder pain COMPARISON: None. FINDINGS: A comminuted fracture of the distal clavicle is seen. There is resultantmild widening of the acromioclavicular joint. Alignment is maintained atthe glenohumeral joint which exhibits osteoarthritic changes manifested byjoint space narrowing and osteophytosis. Osteopenia is suggested.Atheroscleroti c calcifications are present in the aortic arch. [facility], Radiant Results Inft User - 06/28/2020 12:55 PM CDTEXAM:XR SHOULDER 2+ VW RIGHTHISTORY:shoulder pain COMPARISON:None.FINDINGS : A comminuted fracture of the distal clavicle is seen. There is resultantmild widening of the acromioclavicular joint. Alignment is maintained atthe glenohumeral joint which exhibits osteoarthritic changes manifested byjoint space narrowing and osteophytosis. Osteopenia is suggested.Atheroscleroti c calcifications are present in the aortic arch.IMPRESSIONComminute d distal clavicle fracture. XR FOREARM 2 VW 2020-06- No acute bony Unive rsity of RIGHT 28 abnormality. EXAM: XR [facility] Medical 17:53:09 FOREARM 2 VW RIGHT Branch HISTORY: right arm pain COMPARISON: None. FINDINGS: Osteopenia is noted. 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 Mild osteoarthritic changes are present at theelbow. No acute fracture or dislocation is seen. [facility], Radiant Results Inft User - 06/28/2020 12:54 PM CDTEXAM:XR FOREARM 2 VW RIGHTHISTORY:right arm pain COMPARISON:None.FINDINGS : Osteopenia is noted. 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 Mild osteoarthritic changes are present at theelbow. No acute fracture or dislocation is seen.IMPRESSIONNo acute bony abnormality.
[2021-12-30 17:09] LABS: Absolute Lymphocytes (CBC) 1.5 K/uL (0.7-4.9); Lymphocytes % 20.3 % (15.3-44.8); MPV 7.6 fL (7.6-11.3); RBC Red Blood Cell Count 3.98 M/uL (3.86-4.86)
[2021-12-30 17:14] LABS: Protime INR 1.06
[2021-12-30 17:21] LABS: Potassium 3.4 mmol/L (3.5-5.1)
--- NOTE | 2021-12-30 18:52 | RAD REPORT ---
EXAM DESCRIPTION: CT - Thorax Wo Con - 12/30/2021 6:40 pm CLINICAL HISTORY: right pleuritic chest pain COMPARISON: Chest For Pe Angio dated 01/03/2018 TECHNIQUE: Axial 5 mm thick images of the chest were obtained without IV contrast. All CT scans are performed using dose optimization technique as appropriate and may include automated exposure control or mA/KV adjustment according to patient size. FINDINGS: No mass or infiltrate in the lung parenchyma. No acute or significant lung parenchymal fin ding identifiable. No pleural thickening or pleural based mass. There is no pleural effusion or pneum othorax. No abnormal mediastinal or hilar masses or lymphadenopathy seen. No gross aortic or pulmonary artery finding suspected. Scattered aortic atherosclerotic calcifications are present. Coronary artery calc ifications are present. There is no cardiomegaly or pericardial effusion. No chest wall mass or abnormal axillary lymphadenopathy. No right-sided rib fracture or rib lesion id entifiable. Patient does have advanced degenerative change to the right shoulder joint. Prominent tho racic spine degenerative changes are present but no acute compression fracture or pathologic bone pro cess. No significant bony foraminal encroachment identifiable. IMPRESSION: Chronic changes to the chest are present as detailed. No acute finding or specific abnormality that would explain a right pleuritic chest pain pattern.
--- NOTE | 2021-12-30 19:03 | ER ---
Nurse's Notes [facility] Name: Radha Bentley Age: 81 yrs Sex: Female : 1940 Arrival Date: 12/30/2021 Time: 15:46 Bed 7 Private MD: Villa Mann Diagnosis: Chest pain on breathing Presentation: 12/30 15:50 Chief complaint: Patient states: "I've got a pain on the right side it hurts worse when ab2 I take a deep breath." Pt c/o SOB. Coronavirus screen: Vaccine status: Patient reports receiving the 2nd dose of the covid vaccine. Client denies travel out of the [place] in the last 14 days. Ebola Screen: Patient negative for fever greater than or equal to 101.5 degrees Fahrenheit, and additional compatible Ebola Virus Disease symptoms Patient denies exposure to infectious person. Patient denies travel to an Ebola-affected area in the 21 days before illness onset. No symptoms or risks identified at this time. Initial Sepsis Screen: Does the patient meet any 2 criteria? No. Patient's initial sepsis screen is negative. Does the patient have a suspected source of infection? No. Patient's initial sepsis screen is negative. Risk Assessment: Do you want to hurt yourself or someone else? Patient reports no desire to harm self or others. Onset of symptoms is unknown. 15:50 Method Of Arrival: Wheelchair ab2 15:50 Acuity: VAIBHAV 3 ab2 Triage Assessment: 15:52 General: Appears in no apparent distress. comfortable, Behavior is calm, cooperative, ab2 appropriate for age. Pain: Complains of pain in right lateral posterior chest. Neuro: Level of Consciousness is awake, alert, obeys commands, Oriented to person, place, time, situation, Appropriate for age. Respiratory: Reports shortness of breath. Historical: - Allergies: 15:52 Avelox; ab2 15:52 Band-aid adhesive; ab2 - PMHx: 15:52 ADD/ADHD; COPD; Heart Murmur; Hyperlipidemia; Hypertension; Hypothyroidism; ab2 - Immunization history:: Adult Immunizations up to date. - Social history:: Smoking status: Patient denies any tobacco usage or history of. - Family history:: not pertinent. - Hospitalizations: : No recent hospitalization is reported. Screenin:24 Abuse screen: Denies threats or abuse. Nutritional screening: No deficits noted. jh6 Tuberculosis screening: No symptoms or risk factors identified. Fall Risk IV access (20 points). Gait- Weak (10 pts.). Assessment: 16:00 General: Appears in no apparent distress. comfortable, Behavior is calm, cooperative. jh6 16:00 Pain: Complains of pain in right lateral anterior chest and right breast Pain currently jh6 is 7 out of 10 on a pain scale. Quality of pain is described as sharp, Pain began suddenly, Is intermittent, Aggravated by deep breath. Vital Signs: 15:50 BP 119 / 64; Pulse 62; Resp 17; Temp 98.2; Pulse Ox 98% on R/A; Weight 87.54 kg; Height ab2 4 ft. 11 in. (149.86 cm); Pain 7/10; 18:59 BP 163 / 67; Pulse 75; Resp 16; Pulse Ox 99% ; jl7 15:50 Body Mass Index 38.98 (87.54 kg, 149.86 cm) ab2 ED Course: 15:46 Patient arrived in ED. am2 15:47 Villa Mann MD is Private Physician. am2 15:52 Triage completed. ab2 15:53 Arm band placed on left wrist. ab2 16:40 González Shah MD is Attending Physician. rn 16:50 Inserted saline lock: 22 gauge in left antecubital area, using aseptic technique. Blood jh6 collected. 17:22 Vivian Damon, RN is Primary Nurse. jh6 17:24 Bed in low position. Call light in reach. Side rails up X 1. Adult w/ patient. jh6 18:41 CT Chest Wo Con In Process Unspecified. EDMS 18:59 XRAY CXR (1 view) In Process Unspecified. EDMS 19:02 Villa Mann MD is Referral Physician. rn 19:31 No provider procedures requiring assistance completed. IV discontinued, intact, as6 bleeding controlled, No redness/swelling at site. Pressure dressing applied. Administered Medications: 19:30 Drug: HYDROcodone-acetaminophen 10 mg-325 mg 1 tabs Route: PO; as6 19:31 Follow up: Response: No adverse reaction; RASS: Alert and Calm (0) as6 Outcome: 19:02 Discharge ordered by . rn 19:31 Discharged to home via wheelchair, with family. as6 19:31 Condition: stable 19:31 Discharge instructions given to patient, Instructed on discharge instructions, follow up and referral plans. medication usage, Demonstrated understanding of instructions, follow-up care, medications, Prescriptions given X 1. 19:31 Patient left the ED. as6 Signatures: Dispatcher [employer] EDMS González Shah MD MD rn Leal, Jahala, RN RN jl7 Alison Casillas am2 Bharat Palacios RN RN as6 Vivian Damon RN RN jh6 Naseem Lema2
--- NOTE | 2021-12-30 19:03 | EDPHYS ---
Physician Documentation [facility] Name: Radha Bentley Age: 81 yrs Sex: Female : 1940 Arrival Date: 12/30/2021 Time: 15:46 Bed 7 Private MD: Villa Mann ED Physician González Shah HPI: 12/30 18:06 This 81 yrs old Female presents to ER via Wheelchair with complaints of sharp right rn chest pain. 18:06 The patient or guardian reports chest pain that is located primarily in the anterior rn chest wall, right. Onset: today. The pain does not radiate. Associated signs and symptoms: Pertinent positives: cough, Pertinent negatives: abdominal pain, diaphoresis, palpitations, shortness of breath, syncope. The chest pain is described as sharp, stabbing. Duration: The patient or guardian reports multiple episodes, that are intermittent. Modifying factors: The symptoms are alleviated by nothing. the symptoms are aggravated by deep breath. Severity of pain: At its worst the pain was moderate in the emergency department the pain has improved. The patient has not experienced similar symptoms in the past. The patient has not recently seen a physician. Pt reports right anterior/lateral chest pain, sharp/stabbing, worse with deep breath. No trauma. No fever. + cough. No hemoptysis.. Historical: - Allergies: 15:52 Avelox; ab2 15:52 Band-aid adhesive; ab2 - PMHx: 15:52 ADD/ADHD; COPD; Heart Murmur; Hyperlipidemia; Hypertension; Hypothyroidism; ab2 - Immunization history:: Adult Immunizations up to date. - Social history:: Smoking status: Patient denies any tobacco usage or history of. - Family history:: not pertinent. - Hospitalizations: : No recent hospitalization is reported. ROS: 18:06 Constitutional: Negative for fever, chills, and weight loss, Eyes: Negative for injury, rn pain, redness, and discharge, Neck: Negative for injury, pain, and swelling, Cardiovascular: + right chest pain Respiratory: + cough and pleuritic chest pain Abdomen/GI: Negative for abdominal pain, diarrhea, and constipation, Back: Negative for injury and pain, : Negative for injury, bleeding, discharge, and swelling, MS/Extremity: Negative for injury and deformity, Skin: Negative for injury, rash, and discoloration, Neuro: Negative for headache, weakness, numbness, tingling, and seizure. Exam: 18:06 Constitutional: This is a well developed, well nourished patient who is awake, alert, rn and in no acute distress. Head/Face: Normocephalic, atraumatic. Eyes: Periorbital areas with no swelling, redness, or edema. Cardiovascular: Regular rate and rhythm. No pulse deficits. Respiratory: Clear bilateral breath sounds, + splinting with deep inspiration Abdomen/GI: Soft, non-tender Skin: Warm, dry MS/ Extremity: Pulses equal, no cyanosis. Neuro: Awake and alert, GCS 15 Vital Signs: 15:50 BP 119 / 64; Pulse 62; Resp 17; Temp 98.2; Pulse Ox 98% on R/A; Weight 87.54 kg; Height ab2 4 ft. 11 in. (149.86 cm); Pain 7/10; 18:59 BP 163 / 67; Pulse 75; Resp 16; Pulse Ox 99% ; jl7 15:50 Body Mass Index 38.98 (87.54 kg, 149.86 cm) ab2 MDM: 16:40 Patient medically screened. rn 18:55 Differential diagnosis: acute myocardial infarction, acute pericarditis, chest wall rn pain, costochondritis, pleurisy, pneumonia, pneumothorax. Data reviewed: vital signs, nurses notes, and as a result, I will discharge patient. Data interpreted: Pulse oximetry: on room air is 98 %. Interpretation: normal. Counseling: I had a detailed discussion with the patient and/or guardian regarding: the historical points, exam findings, and any diagnostic results supporting the discharge/admit diagnosis, lab results, radiology results, the need for outpatient follow up, to return to the emergency department if symptoms worsen or persist or if there are any questions or concerns that arise at home. Response to treatment: the patient's symptoms have mildly improved after treatment, and as a result, I will discharge patient. Special discussion: I discussed with the patient/guardian in detail that at this point there is no indication for admission to the hospital. It is understood, however, that if the symptoms persist or worsen the patient needs to return immediately for re-evaluation. ED course: No acute findings in blood, neg ct chest, neg cxr, no ischemia on ecg. Offered admission for observation to patient, does not want to be admitted, wants to go home with pain medication. Understands risks of going home without further observation/testing and plans tof/u with Dr. Mann. Return precautions given and understood.. 12/30 16:47 Order name: CBC with Diff; Complete Time: 17:47 rn 12/30 16:47 Order name: Basic Metabolic Panel; Complete Time: 17:47 rn 12/30 16:47 Order name: NT PRO-BNP; Complete Time: 17:47 rn 12/30 16:47 Order name: PT-INR; Complete Time: 17:47 rn 12/30 16:47 Order name: Ptt, Activated; Complete Time: 17:47 rn 12/30 16:47 Order name: XRAY CXR (1 view) rn 12/30 16:00 Order name: EKG - Nurse/Tech; Complete Time: 16:44 ab2 12/30 16:47 Order name: IV Start; Complete Time: 17:31 rn 12/30 16:47 Order name: EKG; Complete Time: 16:48 rn 12/30 16:47 Order name: Cardiac monitoring; Complete Time: 17:31 rn 12/30 16:47 Order name: Labs collected and sent; Complete Time: 17:31 rn 12/30 16:47 Order name: O2 Per Protocol; Complete Time: 17:31 rn 12/30 17:47 Order name: CT Chest Wo Con; Complete Time: 18:54 rn 12/30 16:47 Order name: O2 Sat Monitoring; Complete Time: 17:31 rn Administered Medications: 19:30 Drug: HYDROcodone-acetaminophen 10 mg-325 mg 1 tabs Route: PO; as6 19:31 Follow up: Response: No adverse reaction; RASS: Alert and Calm (0) as6 Disposition Summary: 12/30/21 19:02 Discharge Ordered Location: Home rn Problem: new rn Symptoms: have improved rn Condition: Stable rn Diagnosis - Chest pain on breathing rn Followup: rn - With: Villa Mann MD - When: 2 - 3 days - Reason: Recheck today's complaints, Re-evaluation by your physician Discharge Instructions: - Discharge Summary Sheet rn - Nonspecific Chest Pain, Adult rn Forms: - Medication Reconciliation Form rn - Thank You Letter rn - Antibiotic rn bsn - Prescription Opioid Use rn Prescriptions: - Tylenol-Codeine #3 300 mg-30 mg Oral - take 1 tablet by ORAL route every 6-8 hours As needed; 15 tablet; Refills: 0, rn Product Selection Permitted Signatures: Dispatcher [employer] González Bell MD MD rn Slawson, Ashby, RN RN as6 Naseem Lema
[2021-12-30] MEDS ORDERED: HYDROCODONE/APAP 10/325 TAB ONE (19:25)
--- NOTE | 2021-12-30 20:13 | RAD REPORT ---
EXAM DESCRIPTION: RAD - Chest Single View - 12/30/2021 6:57 pm CLINICAL HISTORY: right sided pleuritic chest pain;Chest pain COMPARISON: Portable chest 06/30/2021 TECHNIQUE: AP portable chest image was obtained 12/30/2021 6:57 pm . FINDINGS: Lung volumes are very low. Scarring or atelectasis in the left base. No acute lung process . Heart and vasculature are normal. No measurable pleural effusion and no pneumothorax. Chronic degen erative changes at the right shoulder joint and old trauma changes of the right AC joint are stable. 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 No acute aortic findings suspected. IMPRESSION: No acute cardiopulmonary process. No significant change from comparison study.
[2021-12-30 21:18] VITALS: TEMP 98.2
[2021-12-30 21:20] VITALS: BP 163/67; O2SAT 99
--- NOTE | 2022-01-02 11:19 | EKG ---
Test Date: 2021-12-30 Test Time: 15:54:34 Curriculum Assistant Principal: MEASUREMENT RESULTS: Intervals: Rate: 55 ME: 238 QRSD: 118 QT: 522 QTc: 499 [place]: P: 33 ME: 238 QRS: -42 T: -6 INTERPRETIVE STATEMENTS: Sinus bradycardia with 1st degree AV block Left axis deviation Pulmonary disease pattern Left ventricular hypertrophy with QRS widening Nonspecific ST and T wave abnormality Abnormal ECG Compared to ECG 07/01/2021 00:39:44 Left-axis deviation now present ST (T wave) deviation now present Sinus rhythm no longer present Electronically Signed On 01-02-22 11:13:26 CDT by Omid Mckeon
== END 2021-12-30 19:31 | disposition home or self-care (01) ==
LOC: ER 15:28
DX: R07.1 Chest pain on breathing (principal); I10 Essential (primary) hypertension; J44.9 Chronic obstructive pulmonary disease, unspecified; E78.5 Hyperlipidemia, unspecified; Z88.8 Allergy status to other drugs, medicaments and biological substances; Z91.048 Other nonmedicinal substance allergy status
CPT/HCPCS: 36415; 71045; 71250; 80048; 83880; 85025; 85610; 85730; 93005; 99284

== ENCOUNTER 2022-01-04 09:41 | Emergency (ER) | payer MEDICARE ==
--- OUTSIDE RECORDS SUMMARY | 2022-01-04 09:44 | XMS REPORT | Continuity of Care Document ---
:1940 Author Organization [facility] t Address [address] [place]. [address] [place] [id number] Care Team Providers Name Role Phone GALLO Primary Care Physician Unavailable Maria E, S Attending Clinician Unavailable Canalkim_Keesha Attending Clinician Unavailable Olivia-Mbayo_A_AH Attending Clinician Unavailable Radha Jerez Attending Clinician [phone] Angela ADAMS S Attending Clinician Yocasta FOOD PRODUCT INSPECTOR, G Attending Clinician Timothy WOLFE Attending Clinician TIMOTHY Attending Clinician Unavailable Physician, Primary or Family Admitting Clinician Unavailabl e Solitario_M Admitting Clinician Unavailable Olivia-Mbayo_A_AH Admitting Clinician Unavailable ITMOTHY Admitting Clinician Unavailable Payers Payer Name Policy Type Policy Number Effective Date Expiration Date Carla peterson [facility] [id number] 2019 CLASSIC/VALUE 00:00:00 [facility] [id number] (MEDICARE 00:00:00 REPLACEMENT HMO) [employer] [place] - [id number] 2019 AG (MEDICARE 00:00:00 REPLACEMENT/ADVANTA GE - HMO) Problems Condition Condition Condition Status Onset Resolution Last Treating Co mments Source Name Details Category Date Date Treatment Clinician Date Morbid Morbid Disease Active Univers obesity obesity 8-31 ity of 00:00: [address] Allergies, Adverse Reactions, Alerts Allergy Allergy Status Severity Reaction(s) Onset Inactive Treating Comm ents Source Name Type Date Date Clinician ADHESIVE DRUG Active Med Rash Univers TAPE-BRIGETTE 8-30 ity of ICONES 00:00: [place] [address] [facility] MOXIFLOX DRUG Active Med Rash Univers ACIN HCL INGREDI 8-30 ity of 00:00: [place] [address] [facility] Adhesive Propensi Active Rash Univer s Tape-Brigette ty to 8-30 ity of icones adverse 00:00: [place] reaction 00 Medical s to Branch drug Moxiflox Propensi Active Rash Univer s acin Hcl ty to 8-30 ity of adverse 00:00: [place] reaction 00 Medical s to Branch drug moxiflox DA Active U [facility] acin HCl 2-15 [place] 00:00: [address] BANDAIDS DA Active RI [facility] ADHESIVE 2-15 [place] 00:00: [address] Social History Social Habit Start Date Stop Date Quantity Comments Source Exposure to Not sure [facility]-CoV-2 [facility] (event) [place] Alcohol Comment Occasional Drinker U niversity of [facility] Sex Assigned At Universit y of [facility] Alcohol intake 2020-06-28 2020-06-28 Current drinker of Un iversity of 00:00:00 00:00:00 alcohol (finding) [facility] Tobacco use and 2020-06-28 2020-06-28 Never used Universit y of exposure 00:00:00 00:00:00 [facility] Smoking Status Start Date Stop Date Source Never smoker [facility] Medications Ordered Filled Start Stop Current Ordering Indication Dosage Frequency Signature Comments Components Source Medication Medication Date Date Medication? Clinician (SIG) Name Name HYDROcodone 2020- No 1{tbl} 1 tablet, Univers -acetaminop 06-28 Oral, ity of hen (NORCO 20:30: 19:23 ONCE, 1 Carlos as 5) 5-325 mg 00 :00 dose, Mon Med ical tablet 1 06/28/20 at [facility] h tablet 1530, DIMITRIS metoprolol 2019- 2020- [...] ALBUTEROL 2019-0 Yes [facility]. [facility] SULFATE 06-28 ity of INHALE 17:14: [...] 4-6). Indication s: acute pain sucralfate Yes [id number] .25[in_ Apply 0.25 Univers malate, 5- us] Inches as ity of polymerized 00:00: directed 4 [place] 1 gram/10 00 (four) Medical mL Pste times Branch daily as needed for Pain (scale 1-3). sucralfate 2020- No [id number] .25[in_ Apply 0.25 Univers malate, 02-18-28 us] [...] of mg tablet 17:04: daily. [place] [address] [facility] lovastatin 0 Yes 20mg Take [...] of mg tablet 17:04: daily. [place] [address] [facility] Branch lovastatin 0 Yes 20mg Take [...] ity o f 40 mg 17:04: daily. [place] capsule Medical Branch metoprolol Yes 50mg Take 50 mg U nivers succinate 3-07 by mouth ity of XL (TOPROL 17:04: daily. [place] XL) 50 mg 36 Medical 24 hr [...] mouth ity of 10 mg 17:04: daily. [place] tablet Medical [place] amLODIPine Yes 5mg Take 5 mg Un martha (NORVASC) 5 3-07 by mouth ity of mg tablet 17:04: daily. [address] lovastatin Yes 20mg Take 20 mg U nivers (MEVACOR) 3-07 by mouth ity of 20 mg 17:04: daily. [place] tablet Medical [place] Vital Signs Vital Name Observation Time Observation Value Comments Source Systolic blood 2020-06-28 19:30:00 180 mm[Hg] Univer sity of pressure [facility] Diastolic blood 2020-06-28 19:30:00 82 mm[Hg] [facility] 2020-06-28 19:30:00 61 /min [facility] Respiratory rate 2020-06-28 19:13:00 17 /min [facility] Oxygen saturation in 2020-06-28 19:13:00 96 /min [facility] Arterial blood by [facility] Pulse oximetry Branch Body temperature 2020-06-28 16:54:00 36.33 Tracee [facility] Body weight 2020-06-28 16:54:00 95.255 kg [facility] BMI 2020-06-28 16:54:00 42.41 kg/m2 [facility] Systolic blood 2020-06-28 19:30:00 180 mm[Hg] Univer sity of pressure [place] [facility] Diastolic blood 2020-06-28 19:30:00 82 mm[Hg] Unive rsity of pressure [place] [facility] Heart rate 2020-06-28 19:30:00 61 /min Universi ty of [place] [facility] Respiratory rate 2020-06-28 19:13:00 17 /min Univ ersity of [place] [facility] Oxygen saturation in 2020-06-28 19:13:00 96 /min University of Arterial blood by [facility] Pulse oximetry Branch Body temperature 2020-06-28 16:54:00 36.33 Tracee Univ ersity of [place] [facility] Body weight 2020-06-28 16:54:00 95.255 kg Universi ty [facility] [place] [facility] BMI 2020-06-28 16:54:00 42.41 kg/m2 [facility] [place] [facility] Systolic blood 2020-02-19 19:23:00 160 mm[Hg] Univer sity of pressure [place] [facility] Diastolic blood 2020-02-19 19:23:00 84 mm[Hg] Unive rsity of pressure [place] [facility] Heart rate 2020-02-19 19:23:00 63 /min [facility]i ty [facility] [place] [facility] Body temperature 2020-02-19 19:23:00 36.39 Tracee Univ ersity of [place] [facility] Respiratory rate 2020-02-19 19:23:00 15 /min Univ ersity of [place] [facility] Body height 2020-02-19 19:23:00 149.9 cm [facility] [place] [facility] Body weight 2020-02-19 19:23:00 99.791 kg [facility] [place] [facility] BMI 2020-02-19 19:23:00 44.43 kg/m2 [facility] [place] [facility] Oxygen saturation in 2020-02-19 19:23:00 96 /min University of Arterial blood by [facility] Pulse oximetry Branch Systolic blood 2020-02-19 19:23:00 160 mm[Hg] Univer sity of pressure [place] [facility] Diastolic blood 2020-02-19 19:23:00 84 mm[Hg] Unive rsity of pressure [place] [facility] Heart rate 2020-02-19 19:23:00 63 /min [facility]i ty [facility] [place] [facility] Body temperature 2020-02-19 19:23:00 36.39 Tracee Univ ersity of [place] [facility] Respiratory rate 2020-02-19 19:23:00 15 /min Univ ersity of [place] [facility] Body height 2020-02-19 19:23:00 149.9 cm [facility] [place] [facility] Body weight 2020-02-19 19:23:00 99.791 kg [facility] [place] [facility] BMI 2020-02-19 19:23:00 44.43 kg/m2 [facility] [place] [facility] Oxygen saturation in 2020-02-19 19:23:00 96 /min University of Arterial blood by [facility] tania Pulse oximetry Branch Systolic blood 2019-12-10 04:00:00 202 mm[Hg] Univer sity of pressure [place] [facility] Diastolic blood 2019-12-10 04:00:00 92 mm[Hg] Unive rsity of pressure [place] [facility] Heart rate 2019-12-10 04:00:00 75 /min Universi ty of [place] [facility] Respiratory rate 2019-12-10 04:00:00 18 /min Univ ersity of [place] [facility] Oxygen saturation in 2019-12-10 04:00:00 98 /min University of Arterial blood by [facility] tania Pulse oximetry Branch Body temperature 2019-12-10 02:51:13 36.39 Tracee Univ ersity of [place] [facility] Body height 2019-12-10 02:28:00 162.6 cm [facility]i [facility] [place] [facility] Body weight 2019-12-10 02:28:00 104.327 kg [facility] [place] [facility] BMI 2019-12-10 02:28:00 39.48 kg/m2 [facility] [place] [facility] Systolic blood 2019-12-10 04:00:00 202 mm[Hg] Univer sity of pressure [place] [facility] Diastolic blood 2019-12-10 04:00:00 92 mm[Hg] Unive rsity of pressure [place] [facility] Heart rate 2019-12-10 04:00:00 75 /min [facility]i ty [facility] [place] [facility] Respiratory rate 2019-12-10 04:00:00 18 /min Univ ersity of [place] [facility] Oxygen saturation in 2019-12-10 04:00:00 98 /min University of Arterial blood by [facility] Pulse oximetry Branch Body temperature 2019-12-10 02:51:13 36.39 Tracee Univ ersity of [place] [facility] Body height 2019-12-10 02:28:00 162.6 cm [facility] Body weight 2019-12-10 02:28:00 104.327 kg [facility] BMI 2019-12-10 02:28:00 39.48 kg/m2 [facility] Procedures Procedure Date / Time Performed Performing Clinician Mike e XR FOREARM 2 VW RIGHT 2020-06-28 17:49:01 Sariah [facility] XR SHOULDER 2+ VW 2020-06-28 17:49:01 Sariah Miller [facility] CONSENT/REFUSAL FOR 2020-02-19 18:58:01 Doctor Unassigned, No Un [facility] DIAGNOSIS AND Name Medical [place] TREATMENT XR TIBIA FIBULA 2 VW 2019-12-10 03:20:[address] [facility] Encounters Start End Encounter Admission Attending Care Care Encounter Source Date/Time Date/Time Type Type Clinicians Facility Department ID 2021-10-26 Outpatient STLMLC STLMLC [id number] [id number] 13:00:46 [id number] [facility] 2021-10-26 Outpatient [facility]LMLC ST[facility]MLC [id number] [facility] 12:25:20 [id number] [facility] 2021-10-26 Outpatient STLMLC STLMLC [id number] [facility] 12:16:59 [id number] [facility] 2021-10-05 Inpatient NIC Sanderson, HCAWU ADMI [id number] [facility] 11:00:00 Anurag [id number] [facility] 2021-07-29 Emergency [facility] [id number] Univers 19:46:17 [facility] 2021-07-28 Emergency [facility] [id number] Univers 21:53:33 [facility] 2021-12-15 2021-12-15 ambulatory [facility]LMLC ST[facility]MLC [id number] [facility] 2021-12-08 2021-12-08 ambulatory [facility]LMLC [facility] [id number] [facility] 2021-11-29 2021-11-29 ambulatory [facility]LMLC [facility] [id number] [facility] 2021-11-21 2021-11-21 ambulatory [facility]LMLC [facility] [id number] [facility] 2021-10-26 2021-10-26 ambulatory [facility]LMLC [facility] [id number] [facility] 2021-10-17 2021-10-17 ambulatory [facility]LMLC [facility] [id number] [facility] 2021-08-29 2021-08-29 Outpatient Canales_M DMG DMG [id number] [facility] 12:42:00 12:42:00 [id number] [facility] 2021-05-16 2021-05-16 Outpatient [facility]LMLC [facility] [id number] [facility] 2021-05-10 2021-05-10 Outpatient [facility]LMLC [facility] [id number] [facility] 2021-04-12 2021-04-12 Outpatient [facility]MLC [facility] [id number] [facility] 2021-03-28 2021-03-28 Outpatient Renetta [facility] [id number] [facility] 05:32:00 05:32:00 _A_AH [id number] Family Practic e 2021-03-07 2021-03-07 Outpatient [facility]LMLC [facility]C [id number] [facility] 2021-02-08 2021-02-08 Outpatient [facility]MLC [facility] [id number] [facility] 2021-01-18 2021-01-18 [facility] [address] [place] [address] 01:43:00 01:43:00 _A_AH [id number] Family Practic e 2021-01-14 2021-01-14 Outpatient Canales_M DMG DMG [id number] [facility] 05:20:00 05:20:00 0416 Medica l Group 2021-01-14 2021-01-14 Outpatient Jerez, DMG DMG [id number] 00:00:00 00:00:00 Caitlyn [id number] Radha [id number] 2021-01-13 2021-01-13 Outpatient Canales_M DMG DMG [id number] [facility] 05:35:00 05:35:00 0415 Medica l Group 2021-01-12 2021-01-12 Outpatient Canales_M DMG DMG [id number] [facility] 04:16:00 04:16:00 0414 Medica l Group 2020-12-09 2020-12-09 [id number] 2020-12-09 2020-12-09 Outpatient STLC STLC [id number] [facility]00 [facility] 2020-11-30 2020-11-30 Outpatient STLMLC STLC [id number] [facility] 2020-10-28 2020-10-28 Outpatient STLC STLC [id number] [facility]00 [facility] 2020-10-25 2020-10-25 Outpatient STLC STLC [id number] [facility]00 [facility] 2020-09-29 2020-09-29 Outpatient STLMLC STLC [id number] [facility]00 [facility] 2020-06-28 2020-06-28 Emergency Miller, PERRI [id number] [facility] 11:51:00 15:02:00 Sariah [place] [id number] i ty of [place] [id number] [facility] [id number] [address] 2020-06-28 2020-06-28 [facility] [id number] 11:51:00 15:02:00 Sariah [place] [id number] [place] 4.2.7.2.6 [place] [id number] [facility] 2020-02-19 2020-02-19 Emergency [facility], [facility] [id number] [facility] 14:18:56 16:04:00 Maria Luisa Gutierrez [id number] ity of [place] [id number] [facility] [id number] [address] 2020-02-19 2020-02-19 Emergency [facility] [id number] 14:18:56 16:04:00 Maria Luisa [place] [id number] [place] [address] [place] [address] [id number] [facility] 2019-12-11 2019-12-11 [facility] [address] 06:48:00 06:48:00 _A_AH [id number] Family Practic e 2019-12-11 2019-12-[address] 06:48:00 06:48:00 _A_AH [id number] Family Practic e 2019-12-09 2019-12-10 Emergency [facility] [id number] [facility] 21:28:34 00:05:00 Timi Gutierrez [id number] i ty of [place] [id number] [facility] [id number] [address] 2019-12-09 2019-12-10 [facility] [id number] Univers 21:28:34 00:05:00 TIMI dominique of [facility] 2019-12-09 2019-12-10 Emergency Hansen, [facility] [id number] 21:28:34 00:05:00 Timi Gutierrez [id number] [place] [id number] [place] [id number] 2019-11-19 2019-11-19 Outpatient Renetta [facility] [id number] [facility] 07:16:00 07:16:00 _A_ [id number] Family Practic e Results Test Test Test Results Result Source Description Time Comments Comments XR SHOULDER 2+ 2020-06- Comminuted distal Un iversity of VW RIGHT 28 clavicle fracture. EXAM: [facility] 17:54:27 XR SHOULDER 2+ VW RIGHT B [...] rsity of RIGHT 28 abnormality. EXAM: XR [facility] 17:53:09 FOREARM 2 VW RIGHT Branch [...]
[2022-01-04 10:36] LABS: Absolute Lymphocytes (CBC) 1.4 K/uL (0.7-4.9); Hematocrit 33.2 % (36.0-45.0); Lymphocytes % 18.3 % (15.3-44.8); MPV 7.8 fL (7.6-11.3); RBC Red Blood Cell Count 4.04 M/uL (3.86-4.86)
[2022-01-04] MEDS ORDERED: NA CHLORIDE 0.9% 500 ML ONE (10:40)
--- NOTE | 2022-01-04 10:51 | RAD REPORT ---
EXAM DESCRIPTION: RAD - Chest Single View - 01/04/2022 10:09 am CLINICAL HISTORY: CHEST PAIN COMPARISON: Chest Single View dated 12/30/2021; Chest Single View dated 06/30/2021; Chest Single View d ated 06/28/2021; Chest Single View dated 06/17/2021 FINDINGS: Lines: None. Lungs: No evidence of edema or pneumonia. Pleural: No significant pleural effusions or pneumothorax. Cardiac: Mild cardiomegaly. Bones: No acute fractures. Left shoulder arthroplasty. Other: IMPRESSION: No acute cardiopulmonary disease.
[2022-01-04 10:52] LABS: Potassium 3.5 mmol/L (3.5-5.1); Troponin High Sensitivity 15.8 pg/mL (<58.9)
--- NOTE | 2022-01-04 11:13 | RAD REPORT ---
EXAM DESCRIPTION: US - Abdomen Exam Limited - 01/04/2022 10:55 am CLINICAL HISTORY: 8 anterior chest wall pain;Abd pain COMPARISON: Renal Ultrasound-Complete dated 06/28/2021; Thorax Wo Con dated 12/30/2021 FINDINGS: Cholecystectomy. Biliary ductal dilatation is noted. There are 2 tubular structures at the landon hepatis. This may represent the right and left hepatic ducts. The largest duct measures 7 mill imeters and is dilated. Increased echogenicity of the liver suggesting hepatic steatosis. IMPRESSION: Biliary ductal dilatation which may be related to the postcholecystectomy state. Correla te with LFTs. MRCP could better evaluate if clinically indicated.
[2022-01-04] MEDS ORDERED: CODEINE 30MG/APAP 300MG TAB ONE (12:15)
[2022-01-04 13:19] LABS: Bilirubin Direct 0.1 mg/dL (0-0.2); Bilirubin Total 0.3 mg/dL (0.2-1.0); Protein, Total 6.5 g/dL (6.4-8.2); Troponin High Sensitivity 14.2 pg/mL (<58.9)
--- NOTE | 2022-01-04 14:46 | EDPHYS ---
Physician Documentation [facility] Name: Radha Bentley Age: 81 yrs Sex: Female : 1940 Arrival Date: 01/04/2022 Time: 09:43 Bed 7 Private MD: Villa Mann ED Physician Rivas Sorensen HPI: 01/04 17:23 This 81 yrs old Female presents to ER via Wheelchair with complaints of Chest Pain. kdr 17:23 The patient or guardian reports chest pain that is located primarily in the anterior kdr chest wall, right. Onset: gradually, 6 day(s) ago. The pain does not radiate. Associated signs and symptoms: The patient has no apparent associated signs or symptoms. The chest pain is described as aching, dull, a pressure. Duration: The patient or guardian reports a single episode, that is still ongoing, and unchanged. Severity of pain: At its worst the pain was mild moderate just prior to arrival, in the emergency department the pain is unchanged. The patient has experienced similar episodes in the past, a few times, Patient was seen here on December 30 for the same problem. Historical: - Allergies: 09:49 Avelox; jd3 09:49 Band-aid adhesive; jd3 - Home Meds: 09:49 Amlodipine [Active]; bupropion HCl Oral [Active]; gabapentin Oral [Active]; jd3 escitalopram oxalate Oral [Active]; Lasix Oral [Active]; - PMHx: 09:49 ADD/ADHD; Heart Murmur; Hyperlipidemia; COPD; Hypertension; Hypothyroidism; jd3 - Immunization history:: Adult Immunizations up to date, Client reports receiving the 2nd dose of the Covid vaccine, Flu vaccine is up to date. - Social history:: Smoking status: Patient/guardian denies using tobacco, but has a distant history of tobacco abuse. ROS: 17:23 Constitutional: Negative for fever, chills, and weight loss, Eyes: Negative for injury, kdr pain, redness, and discharge, ENT: Negative for injury, pain, and discharge, Neck: Negative for injury, pain, and swelling, Respiratory: Negative for shortness of breath, cough, wheezing, and pleuritic chest pain, Abdomen/GI: Negative for abdominal pain, nausea, vomiting, diarrhea, and constipation, Back: Negative for injury and pain, : Negative for injury, bleeding, discharge, and swelling, MS/Extremity: Negative for injury and deformity, Skin: Negative for injury, rash, and discoloration, Neuro: Negative for headache, weakness, numbness, tingling, and seizure activity. Psych: Negative for depression, anxiety, suicide ideation, homicidal ideation, and hallucinations, Allergy/Immunology: Negative for hives, rash, and allergies, Endocrine: Negative for neck swelling, polydipsia, polyuria, polyphagia, and marked weight changes, Hematologic/Lymphatic: Negative for swollen nodes, abnormal bleeding, and unusual bruising. 17:23 Cardiovascular: Positive for chest pain, Negative for edema, orthopnea, palpitations, paroxysmal nocturnal dyspnea. Exam: 17:23 Constitutional: This is a well developed, well nourished patient who is awake, alert, kdr and in no acute distress. Head/Face: Normocephalic, atraumatic. Eyes: Pupils equal round and reactive to light, extra-ocular motions intact. Lids and lashes normal. Conjunctiva and sclera are non-icteric and not injected. Cornea within normal limits. Periorbital areas with no swelling, redness, or edema. Neck: Trachea midline, no thyromegaly or masses palpated, and no cervical lymphadenopathy. Supple, full range of motion without nuchal rigidity, or vertebral point tenderness. No Meningismus. Chest/axilla: Normal chest wall appearance and motion. Nontender with no deformity. No lesions are appreciated. Cardiovascular: Regular rate and rhythm with a normal S1 and S2. No gallops, murmurs, or rubs. Normal PMI, no JVD. No pulse deficits. Respiratory: Lungs have equal breath sounds bilaterally, clear to auscultation and percussion. No rales, rhonchi or wheezes noted. No increased work of breathing, no retractions or nasal flaring. Abdomen/GI: Soft, non-tender, with normal bowel sounds. No distension or tympany. No guarding or rebound. No evidence of tenderness throughout. Back: No spinal tenderness. No costovertebral tenderness. Full range of motion. Skin: Warm, dry with normal turgor. Normal color with no rashes, no lesions, and no evidence of cellulitis. MS/ Extremity: Pulses equal, no cyanosis. Neurovascular intact. Full, normal range of motion. Neuro: Awake and alert, GCS 15, oriented to person, place, time, and situation. Cranial nerves II-XII grossly intact. Motor strength 5/5 in all extremities. Sensory grossly intact. Cerebellar exam normal. Normal gait. Psych: Awake, alert, with orientation to person, place and time. Behavior, mood, and affect are within normal limits. Vital Signs: 09:50 BP 87 / 40; Pulse 47; Resp 18 S; Temp 98.1(TE); Pulse Ox 97% on R/A; Weight 86.64 kg jd3 (R); Height 4 ft. 11 in. (149.86 cm) (R); Pain 7/10; 10:15 BP 92 / 56; Pulse 54; Resp 17; Pulse Ox 99% ; bp 11:00 BP 116 / 73; Pulse 57; Resp 16; Pulse Ox 95% ; bp 12:00 BP 124 / 73; Pulse 58; Resp 16; Pulse Ox 98% ; bp 13:00 BP 123 / 60; Pulse 61; Resp 16; Pulse Ox 99% ; bp 14:00 BP 142 / 87; Pulse 56; Resp 16; Pulse Ox 97% ; bp 15:00 BP 102 / 63; Pulse 59; Resp 16; Pulse Ox 97% ; bp 09:50 Body Mass Index 38.58 (86.64 kg, 149.86 cm) jd3 MDM: 14:45 Patient medically screened. kdr 17:23 Data reviewed: vital signs, nurses notes, lab test result(s), EKG, radiologic studies. kdr Counseling: I had a detailed discussion with the patient and/or guardian regarding: the historical points, exam findings, and any diagnostic results supporting the discharge/admit diagnosis, lab results, radiology results, the need for outpatient follow up. 17:23 ED course: Patient had right-sided chest pain that improved with the medication given kdr here. She indicated that she has had some though not complete response to the prior Tylenol 3's prescribed by Dr. Shah. She is a patient of Dr. Guerrero and can follow-up with him in the next day or so. Patient did not appear to be toxic in any way. She does not appear to be acutely ill in any way. She had no other complaints. She was discharged in good condition.. 01/04 09:53 Order name: Basic Metabolic Panel; Complete Time: 11:17 kdr 01/04 09:53 Order name: CBC with Diff; Complete Time: 11:17 kdr 01/04 09:53 Order name: Troponin HS; Complete Time: 11:17 kdr 01/04 09:53 Order name: XRAY Chest (1 view); Complete Time: 11:17 kdr 01/04 11:17 Order name: Troponin High Sensitivity; Complete Time: 13:20 kdr 01/04 11:18 Order name: LFT's; Complete Time: 13:20 kdr 01/04 09:53 Order name: EKG; Complete Time: 09:54 kdr 01/04 09:53 Order name: Cardiac monitoring; Complete Time: 10:17 kdr 01/04 09:53 Order name: EKG - Nurse/Tech; Complete Time: 10:17 kdr 01/04 09:53 Order name: IV Saline Lock; Complete Time: 10:16 kdr 01/04 09:53 Order name: Labs collected and sent; Complete Time: 10:17 kdr 01/04 10:09 Order name: US Abdomen Limited; Complete Time: 11:17 kdr 01/04 09:53 Order name: O2 Per Protocol; Complete Time: 10:17 kdr 01/04 09:53 Order name: O2 Sat Monitoring; Complete Time: 10:17 kdr Administered Medications: 10:30 Drug: NS 0.9% 500 ml Route: IV; Rate: bolus; Site: right forearm; bp 15:07 Follow up: IV Status: Completed infusion; IV Intake: 500ml bp 12:16 Drug: Acetaminophen-Codeine (300 mg-30 mg) 1 tablet Route: PO; bp 15:07 Follow up: Response: No adverse reaction; Pain is decreased bp Disposition Summary: 01/04/22 14:45 Discharge Ordered Location: Home kdr Problem: new kdr Symptoms: have improved kdr Condition: Stable kdr Diagnosis - Chest pain, unspecified - Right lateral kdr Followup: kdr - With: Villa Mann MD - When: 2 - 3 days - Reason: If symptoms return, Further diagnostic work-up, Recheck today's complaints, Continuance of care, Re-evaluation by your physician Discharge Instructions: - Discharge Summary Sheet kdr - Nonspecific Chest Pain, Adult, [id number] kdr Forms: - Medication Reconciliation Form kdr - Thank You Letter kdr - Prescription Opioid Use kdr Signatures: Dispatcher [employer] EDCA Rivas Sorensen MD MD kdr Zohaib Slater, RN RN jd3 Anatoly Castillo RN RN bp
--- NOTE | 2022-01-04 14:46 | ER ---
Nurse's Notes [facility] Name: Radha Bentley Age: 81 yrs Sex: Female : 1940 Arrival Date: 01/04/2022 Time: 09:43 Bed 7 Private MD: Villa Mann Diagnosis: Chest pain, unspecified-Right lateral Presentation: 01/04 09:48 Chief complaint: Patient states: "I am having chest pain for a couple of days now. it jd3 hurts to take a deep breath.". Coronavirus screen: At this time, the client does not indicate any symptoms associated with coronavirus-19. Ebola Screen: No symptoms or risks identified at this time. Initial Sepsis Screen: Does the patient meet any 2 criteria? No. Patient's initial sepsis screen is negative. Does the patient have a suspected source of infection? No. Patient's initial sepsis screen is negative. Risk Assessment: Do you want to hurt yourself or someone else? Patient reports no desire to harm self or others. Onset of symptoms was January 01, 2022. 09:48 Method Of Arrival: Wheelchair jd3 09:48 Acuity: VAIBHAV 2 jd3 Triage Assessment: 09:50 General: Appears in no apparent distress. uncomfortable, Behavior is cooperative, bp appropriate for age, anxious. Pain: Complains of pain in right lateral anterior chest. EENT: No deficits noted. Neuro: Level of Consciousness is awake, alert, obeys commands, Oriented to Appropriate for age. Cardiovascular: No deficits noted. Respiratory: No deficits noted. GI: No signs and/or symptoms were reported involving the gastrointestinal system. : No signs and/or symptoms were reported regarding the genitourinary system. Derm: No deficits noted. Musculoskeletal: No deficits noted. Historical: - Allergies: 09:49 Avelox; jd3 09:49 Band-aid adhesive; jd3 - Home Meds: 09:49 Amlodipine [Active]; bupropion HCl Oral [Active]; gabapentin Oral [Active]; jd3 escitalopram oxalate Oral [Active]; Lasix Oral [Active]; - PMHx: 09:49 ADD/ADHD; Heart Murmur; Hyperlipidemia; COPD; Hypertension; Hypothyroidism; jd3 - Immunization history:: Adult Immunizations up to date, Client reports receiving the 2nd dose of the Covid vaccine, Flu vaccine is up to date. - Social history:: Smoking status: Patient/guardian denies using tobacco, but has a distant history of tobacco abuse. Screenin:50 Abuse screen: Denies threats or abuse. Denies injuries from another. Nutritional bp screening: No deficits noted. Tuberculosis screening: No symptoms or risk factors identified. Fall Risk None identified. Assessment: 09:50 General: SEE TRIAGE NOTE. bp 11:00 Reassessment: No changes from previously documented assessment. Patient and/or family bp updated on plan of care and expected duration. Pain level reassessed. 12:00 Reassessment: No changes from previously documented assessment. Patient and/or family bp updated on plan of care and expected duration. Pain level reassessed. 13:00 Reassessment: No changes from previously documented assessment. Patient and/or family bp updated on plan of care and expected duration. Pain level reassessed. 15:04 Reassessment: PT D/C HOME VIA W/C WITH FAMILY, DX WITH NONCARDIAC CHEST PAIN. bp Vital Signs: 09:50 BP 87 / 40; Pulse 47; Resp 18 S; Temp 98.1(TE); Pulse Ox 97% on R/A; Weight 86.64 kg jd3 (R); Height 4 ft. 11 in. (149.86 cm) (R); Pain 7/10; 10:15 BP 92 / 56; Pulse 54; Resp 17; Pulse Ox 99% ; bp 11:00 BP 116 / 73; Pulse 57; Resp 16; Pulse Ox 95% ; bp 12:00 BP 124 / 73; Pulse 58; Resp 16; Pulse Ox 98% ; bp 13:00 BP 123 / 60; Pulse 61; Resp 16; Pulse Ox 99% ; bp 14:00 BP 142 / 87; Pulse 56; Resp 16; Pulse Ox 97% ; bp 15:00 BP 102 / 63; Pulse 59; Resp 16; Pulse Ox 97% ; bp 09:50 Body Mass Index 38.58 (86.64 kg, 149.86 cm) jd3 ED Course: 09:43 Patient arrived in ED. am2 09:44 Villa Mann MD is Private Physician. am2 09:49 Triage completed. jd3 09:50 Arm band placed on. jd3 09:50 Patient has correct armband on for positive identification. Bed in low position. Call bp light in reach. Side rails up X2. traffic monitor specialist on. Pulse ox on. NIBP on. 09:53 Rivas Sorensen MD is Attending Physician. kdr 09:58 Anatoly Castillo, RN is Primary Nurse. bp 10:11 XRAY Chest (1 view) In Process Unspecified. EDMS 10:15 Inserted saline lock: 22 gauge in right forearm, using aseptic technique. Blood bp collected. 10:50 US Abdomen Limited In Process Unspecified. EDMS 14:45 Villa Mann MD is Referral Physician. kdr 15:07 No provider procedures requiring assistance completed. IV discontinued, intact, bp bleeding controlled, No redness/swelling at site. Pressure dressing applied. Patient maintains SpO2 saturation greater than 95% on room air. Administered Medications: 10:30 Drug: NS 0.9% 500 ml Route: IV; Rate: bolus; Site: right forearm; bp 15:07 Follow up: IV Status: Completed infusion; IV Intake: 500ml bp 12:16 Drug: Acetaminophen-Codeine (300 mg-30 mg) 1 tablet Route: PO; bp 15:07 Follow up: Response: No adverse reaction; Pain is decreased bp Intake: 15:07 IV: 500ml; Total: 500ml. bp Outcome: 14:45 Discharge ordered by MD. kdr 15:07 Discharged to home via wheelchair, with family. bp 15:07 Condition: stable 15:07 Discharge instructions given to patient, Instructed on discharge instructions, follow up and referral plans. Demonstrated understanding of instructions, follow-up care. 15:14 Patient left the ED. bp Signatures: Dispatcher [employer] EDMS Rivas Sorensen MD MD [facility] Alison Casillas Jonathon, RN RN Anatoly Villalpando, ALAN RN bp Corrections: (The following items were deleted from the chart) 09:50 09:48 Acuity: VAIBHAV 3 jd3 jmaik
[2022-01-05 01:41] VITALS: TEMP 98.1
[2022-01-05 01:50] VITALS: O2SAT 97
[2022-01-05 01:51] VITALS: BP 102/63
== END 2022-01-04 15:14 | disposition home or self-care (01) ==
LOC: ER 09:41
DX: R07.9 Chest pain, unspecified (principal); E03.9 Hypothyroidism, unspecified; I10 Essential (primary) hypertension; J44.9 Chronic obstructive pulmonary disease, unspecified; Z88.8 Allergy status to other drugs, medicaments and biological substances; Z91.048 Other nonmedicinal substance allergy status
CPT/HCPCS: 96361; 93005; 85025; 80048; 36415; 80076; 84484 ×2; 71045; 76705; 96360; 99285; J7040

== ENCOUNTER 2022-07-27 16:56 | Emergency (ER) | payer MEDICARE ==
--- OUTSIDE RECORDS SUMMARY | 2022-07-27 17:05 | XMS REPORT | Continuity of Care Document ---
:1940 Author Organization [facility] t Address [address] [place] [address] Care Team Providers Name Role Phone SMILEY HOLDER Primary Care Physician Unavailable Anurag Sanderson Attending Clinician Unavailable Jeffrey Garcia Attending Clinician Sunny Attending Clinician Unavailable Allegra Laura Attending Clinician Olivia-Mbayo_A_AH Attending Clinician Unavailable Caitlyn Jerez Attending Clinician [phone] Vincent Soni Attending Clinician Sariah Becerra Attending Clinician Maria Luisa Rust NP Attending Clinician Timi Aguirre MD Attending Clinician TIMI AGUIRRE Attending Clinician Unavailable Physician, No Primary or Family Admitting Clinician Unavaila ble Canales_M Admitting Clinician Unavailable Olivia-Mbayo_A_AH Admitting Clinician Unavailable Vincent Soni Admitting Clinician TIMI AGUIRRE Admitting Clinician Unavailable Payers Payer Name Policy Type Policy Number Effective Date Expiration Date S kristen [employer] [place] [id number] 2019 CLASSIC/VALUE 00:00:00 FORMERLY [id number] 2020 (MEDICARE 00:00:00 REPLACEMENT HMO) [employer] [place] - [id number] 2019 [place] (MEDICARE 00:00:00 REPLACEMENT/ADVANTA GE - HMO) Problems Condition Condition Condition Status Onset Resolution Last Treating Co mments Source Name Details Category Date Date Treatment Clinician Date FALL FROM FALL FROM Diagnosis Active 2019-102020-09-16 Memoria STANDING STANDING 2 21:55:00 l Active 00:00: Raul 09/04/2020 00 [facility] S/P FALL, S/P FALL, Diagnosis Active 2019-102020-09-05 Memoria FRACTURED FRACTURED 2 00:45:00 l RIGHT RIGHT 00:00: Raul WRIST, WRIST, 00 HEAD HE HEAD HE Active 09/04/2020 [facility] [id number] 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 - [facility] [id number] Presence Problem Active Com mon 02 of right [facility] artificial - [facility] knee joint [facility] [id number] Primary Problem Active Comm on osteoarthr Spirit itis, - [facility] right ankle and [facility] foot [facility] [id number] Primary Problem Active 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 [id number] Acute pain Problem Active Com mon of right [facility] shoulder - [facility] [id number] 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 [facility] [id number] Arthritis Problem Active Com mon of hand Spirit - [facility] Hypertensi Hypertens Problem Active 2022-04-30 Memoria ve lyle 22:34:31 l disorder, disorder, Herm bernie systemic systemic arterial arterial (disorder) (disorder) Active Problem 04/30/2022 [facility] Hyperlipid Hyperlipi Problem Active 2022-04-30 Memoria emia demia 22:34:31 l (disorder) (disorder) He rmann Active Problem 04/30/2022 [facility] Hypothyroi Hypothyro Problem Active 2022-04-30 Memoria dism idism 22:34:31 l (disorder) (disorder) He rmann Active Problem 04/30/2022 [facility] Memory Memory Problem Active 2022-04-30 Jose Francisco zhang impairment impairment 22:34:31 l (finding) (finding) Herm bernie Active Problem 04/30/2022 [facility] Morbid Morbid Problem Active 2022-04-30 Jose Francisco zhang obesity obesity 22:34:31 l (disorder) (disorder) He rmann Active Problem 04/30/2022 [facility] Recurrent Recurrent Problem Active 2022-04-30 Memoria falls falls 22:34:31 l (finding) (finding) Herm bernie Active Problem 04/30/2022 [facility] Transient Transient Problem Active 2022-04-30 Memoria ischemic ischemic 22:34:31 l attack attack Raul (disorder) (disorder) Active Problem 04/30/2022 [facility] Tremor Tremor Problem Active 2022-04-30 Mem oria (finding) (finding) 22:34:31 l Active [place] Problem 04/30/2022 [facility] Chronic Chronic Problem Active 2022-04-30 Me moria kidney kidney 22:34:31 l disease disease [place] (disorder) (disorder) Active Problem 04/30/2022 [facility] 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 Raul disease disease (disorder) (disorder) Active Problem 04/30/2022 [facility] Depressive Depressiv Problem Active 2022-04-30 Memoria disorder e disorder 22:34:31 l (disorder) (disorder) He rmann Active Problem 04/30/2022 [facility] Essential Essential Problem Active 2022-04-30 Memoria tremor tremor 22:34:31 l (disorder) (disorder) He rmann Active Problem 04/30/2022 [facility] UNSPECIFIE UNSPECIFI Diagnosis Active 2020-09-16 Memoria D FALL, ED FALL, 21:55:00 l INITIAL INITIAL Raul ENCOUNTER ENCOUNTER Active [facility] Allergies, Adverse Reactions, Alerts Allergy Allergy Status Severity Reaction(s) Onset Inactive Treating Comm ents Source Name Type Date Date Clinician ADHESIVE DRUG Active Med Rash Univers TAPE-BRIGETTE 8-30 ity of ICONES 00:00: [place] [id number] Medical Branch MOXIFLOX DRUG Active Med Rash Univers ACIN HCL INGREDI 8-30 ity of 00:00: [place] [address] Medical Branch Adhesive Propensi Active Rash Univer s Tape-Brigette ty to 8-30 ity of icones adverse 00:00: [place] reaction 00 Medical s to Branch drug Moxiflox Propensi Active Rash Univer s acin Hcl ty to 8-30 ity of adverse 00:00: [place] reaction Medical s to Branch drug moxiflox DA Active U [facility] acin HCl 2-15 [place] 00:00: [address] B[place]IDS DA Active [place] [facility] ADHESIVE 2-15 [place] 00:00: [address] Avelox Allergy Active Rash [facility] to Medical substanc Group e Avelox [place]ox Active [place]^Mild Memoria l Raul Social History Social Habit Start Date Stop Date Quantity Comments Source Exposure to Not sure [facility] SARS-CoV-2 [facility] (event) [place] Alcohol Comment Occasional Drinker [facility] History of Common Spirit - Tobacco Use [facility] Sex Assigned At Common Sp cristian - [facility] Social History 2020-09-05 2020-09-05 [facility] reinaldo 14:31:45 14:31:45 Alcohol intake 2020-06-28 2020-06-28 Current drinker of Un iversity of 00:00:00 00:00:00 alcohol (finding) [facility] Tobacco use and 2020-06-28 2020-06-28 Never used Universit y of exposure 00:00:00 00:00:00 [facility] Smoking Status Start Date Stop Date Source Former Smoker 2022-06-16 00:00:00 2022-06-16 00:00:00 Common S pirit - [facility] Never smoker [facility] Branch Medications Ordered Filled Start Stop Current Ordering Indication Dosage Frequency Signature Comments Components Source Medication Medication Date Date Medication? 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, Height, 90.455, kg, 11/02/21 14:32:00 AUTOMAT WATCHER, Weight NIFEdipine Yes TAKE 1 Memor ia (Eqv-Adalat 2-02 TABLET BY l CC) 30 mg 20:38: MOUTH [place] oral 00 EVERY DAY tablet, ON EMPTY extended STOMACH release FOR 30 DAYS Furosemide Yes TAKE 1 Memor ia 40 MG Oral 2-02 TABLET BY l Tablet 20:38: MOUTH [place] 00 EVERY DAY NEEDED FOR SWELLING tramadol Yes TAKE 1 Memoria hydrochlori 2-02 TABLET BY l de 50 MG 20:38: MOUTH Raul Oral Tablet 00 EVERY 6 TO 8 HOURS NEEDED predniSONE Yes TAKE 1 Memor ia 10 mg oral 2-02 TABLET BY l tablet 20:38: MOUTH [place] 00 EVERY DAY FOR 90 DAYS doxycycline Yes TAKE 1 Jose Francisco zhang hyclate 100 2-02 CAPSULE BY l MG Oral 20:38: MOUTH Raul Capsule 00 TWICE A DAY Colestipol Yes TAKE 1 Memor ia Hydrochlori 2-02 TABLET BY l de 1000 MG 20:38: MOUTH Ajay n Oral Tablet 00 TWICE A DAY pantoprazol Yes TAKE 1 Jose Francisco zhang e 40 mg 2-02 TABLET BY l oral 20:38: MOUTH 2 [place] enteric 00 TIMES coated DAILY HALF tablet HOUR BEFORE BREAKFAST OR FIRST MEAL oxybutynin Yes TAKE 1 Memor ia 5 mg oral 2-02 TABLET BY l tablet 20:38: MOUTH [place] 00 THREE TIMES A DAY donepezil Yes = 1 tab, Jose Francisco zhang 10 mg oral 3-26 PO, Daily, l tablet 19:08: # 90 tab, Ajay n 00 1 Refill(s), Pharmacy: [facility] #[id number], 149.86, cm, 12/24/20 13:59:00 CDT, Height, 93.182, kg, 12/24/20 13:59:00 CDT, Weight primidone 2020-0 Yes 50 mg = 1 Mem oria 50 mg oral 3-26 tab, PO, l tablet 19:08: Bedtime, # Jessie nn 00 90 tab, 2 Refill(s), Pharmacy: [facility] #[id number], 149.86, cm, 12/24/20 13:59:00 CDT, Height, 93.182, kg, 12/24/20 13:59:00 CDT, Weight Lidocaine Lidocaine 2020-0 No 10mg Com 12-09 Spirit 00:00: - [facility]I 00 [facility] Celestone Celestone 2020-0 No 6mg Com mon Soluspan Soluspan 3-11 Spirit (Betamethas (Betamethas 00:00: - CHI one) one) 00 [facility] Lidocaine Lidocaine 2020-0 No 10mg Com 12-09 Spirit 00:00: - [facility] 00 [facility] Celestone Celestone 2020-0 No 6mg Com mon Soluspan Soluspan 3-11 Spirit (Betamethas (Betamethas 00:00: - CHI one) one) 00 [facility] Lidocaine Lidocaine 2020-0 No 10mg Com 12-09 Spirit 00:00: - [facility]I 00 [facility] Celestone Celestone 2020-0 No 6mg Com mon Soluspan Soluspan 3-11 Spirit (Betamethas (Betamethas 00:00: - CHI one) one) 00 [facility] Lidocaine Lidocaine 2020-0 No 10mg Com 12-09 Spirit 00:00: - [facility]I 00 [facility] Celestone Celestone 2020-0 No 6mg Com mon Soluspan Soluspan 3-11 Spirit (Betamethas (Betamethas 00:00: - CHI one) one) 00 [facility] Lovastatin 2019-1 No 20 mg, 1 Mem oria 2-07 tab, l 03:00: Route: PO, [place] 00 Drug form: TAB, Bedtime, Dosing Weight 104.545, kg, Start date: 09/05/20 21:00:00 AUTOMAT WATCHER, 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, Stop date: 10/04/20 21:00:00 AUTOMAT WATCHER Primidone 2019-10 No Notes: Memori a 2-07 (Same as: l 03:00: Mysoline) Lipitor 2019-10 No Notes: Memoria 2-07 [...] 104.545, kg, Daily, Start date: 09/05/20 9:00:00 AUTOMAT WATCHER, 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, Stop date: 10/04/20 9:00:00 AUTOMAT WATCHER gabapentin 2019-10 No Notes: Memor ia 300 MG Oral 2-06 (Same as: l Capsule 15:00: Neurontin) ropinirole 2019-10 No Notes: Memor ia 2-06 (Same as: l 15:00: Requip) Raul 00 Streptococc 2019-10 No Notes: Jose Francisco zhang us 2-06 Shake well l pneumoniae 14:12: prior to Her ivory serotype 1 45 use (Same capsular as: antigen Prevnar diphtheria 13) [id number] protein conjugate vaccine / Streptococc us pneumoniae serotype 14 capsular antigen diphtheria SIR101 protein conjugate vaccine / Streptococc us pneumoniae serotype 18C capsular antigen d Thyroxine 2019-10 No Notes: Memori a 2-06 Take 1 l 14:00: hour Raul 00 before or 2 hours after meal; Enteral feeds may interefere with the absorption of this medication . (Same as:Levothr oid) Iohexol 2019-10 No 100 mL, Memoria 11-06 Route: l 12:39: IVP, Drug Raul 00 Form: SOLN, Dosing Weight 104.545, kg, ONCALL, STAT, Start date: 09/05/20 6:39:00 AUTOMAT WATCHER, Duration: 1 doses or times, Dose = 2.2ml/kg, Max dose = 100ml -- "To be infused by Radiology Staff ONLY" Acetaminoph 2019-10 No Notes: Max Memoria en -06 acetaminop l 07:00: hen 4000 [place] 00 mg/day (4 gm/day). (Same as: Tylenol Extra Strength) Oxycodone 2019-10 No Notes: Memori a Hydrochlori 11-06 (Same as: l de 1 MG/ML 06:48: 'Roxicodon H ermann Oral 00 e) Solution spironolact 2019-10 Yes 25 mg = 1 M emoria one 25 mg 2-06 tab, PO, l oral tablet 06:48: Daily, # He rmann 00 30 tab, 3 Refill(s) carvedilol 2019-10 Yes 6.25 mg = Me moria 6.25 mg 2-06 1 tab, PO, l oral tablet 06:48: BID, # 180 [place] 00 tab, 1 Refill(s) amLODIPine 2019-10 Yes 10 mg = 1 Me moria 10 mg oral 2-06 tab, PO, l tablet 06:48: Daily, # [place] 00 90 tab, 0 Refill(s) escitalopra 2019-10 [...] tab, PO, l Tablet 06:48: Daily, # Raul 00 60 tab, 1 Refill(s) Trelegy 2019-10 Yes = 1 Memoria Ellipta 2-06 inhalation l inhalation 06:48: , PO, Ajay n powder 00 Daily, PRN COPD, # 1 ea, 0 Refill(s) Tessalon 2019-10 No Notes: Memoria Perles 2-06 (Same As: l 06:47: Tessalon [place] 00 Perles) "Do Not Crush" Guaifenesin 2019-10 No Notes: Jose Francisco zhang 2-06 (Same as: l 06:47: Organidin Raul 00 NR) Blistex 2019-10 No Notes: Memoria topical 2- Same as: l ointment 06:47: Blistex Ajay n 00 Albuterol 2019-10 No Notes: SEE Me moria 0.83 MG/ML 2-06 RT l Inhalant 06:47: DOCUMENTAT Her ivory Solution 00 ION (Same as: Proventil) Dextrose 2019-10 No 12.5 gm, Memor ia 50% Syringe 2-06 25 mL, l (D50W) 06:47: Route: Raul IVP, Drug Form: INJ, Dosing Weight 104.545, kg, PRN, PRN Blood Glucose Results, Start date: 09/05/20 0:47:00 AUTOMAT WATCHER, 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, Stop date: 10/05/20 0:46:00 AUTOMAT WATCHER, 0 Glucagon 2019-10 No 1 mg, Memoria 2-06 Route: IM, l 06:47: Drug form: Raul 00 PDR/INJ, PRN, Dosing Weight 104.545, kg, PRN Blood Glucose Results, Start date: 09/05/20 0:47:00 AUTOMAT WATCHER, 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, Stop date: 10/05/20 0:46:00 AUTOMAT WATCHER, 0 sennosides, 2019-10 No Notes: Jose Francisco zhang RESIDENTIAL 2-06 (Same as: l 06:47: Senokot) POLYETHYLEN 2019-10 No Notes: Jose Francisco zhang E GLYCOL 2-06 Dissolve l 3350 06:47: in 8 oz of water or juice. (Same as: Miralax) Ondansetron 2019-10 No Notes: Jose Francisco zhang 2-06 (Same as: l 06:47: Zofran) MEDICATION WASTE Product Size: 4 mg Product Wasted: ___ mg Melatonin 2019-10 No Notes: Memori a 2-06 (Same as: l 06:47: Melatonin) LR IV 1,000 2019-10 No 1,000 mL, M emoria mL - Rate: 100 l 06:47: ml/hr, Infuse over: 10 hr, Route: IV, Dosing Weight 104.545 kg, Total Volume: 1,000, Start date: 09/05/20 0:47:00 AUTOMAT WATCHER, Duration: 1 day, Stop date: 09/06/20 0:46:00 AUTOMAT WATCHER, 1.97, m2, 0 Tums 2019-10 No Notes: [...] 2019-10 No Notes: Jose Francisco zhang 0.65% 2- (Same as: l solution 06:47: [place], Deep Sea Nasal [place]). Hydralazine 2019-10 No Notes: Jose Francisco zhang 2-06 (Same as: l 06:45: Apresoline ) Push over 5 minutes Acetaminoph 2019-10 No 1 tab, Jose Francisco zhang en 325 MG / 2-06 Route: PO, l Hydrocodone 04:07: Drug Form: [place] Bitartrate 00 TAB, 5 MG Oral Dosing Tablet Weight 104.545, kg, ONCE, STAT, Start date: 09/04/20 22:07:00 AUTOMAT WATCHER, Stop date: 09/04/20 22:07:00 AUTOMAT WATCHER HYDROcodone 2019- 2020- No 1{tbl} 1 tablet, Univers -acetaminop 06-28 Oral, ity of hen (NORCO 20:30: 19:23 ONCE, 1 [place] as 5) 5-325 mg 00 :00 dose, Mon Med ical tablet 1 06/28/20 at [facility] h tablet 1530, DIMITRIS metoprolol 2019- 2020- No 50mg 50 mg, Univ ers succinate 06-28 Oral, ity of XL (TOPROL 18:15: 17:25 ONCE, 1 [place] as XL) tablet 00 :00 dose, Mon Medi tania 50 mg 06/28/20 at Branch 1315, Routine lisinopriL 2019- No 40mg 40 mg, Univ ers (PRINIVIL,Z [...] tablet (six) Branch hours as needed. ALBUTEROL 2020-0 Yes Inhale. Unive rs SULFATE 06-28 ity of INHALE 17:14: [place] 43 Medical Branch misoprostol 2020- No 200ug Take 200 Univers (CYTOTEC) 06-28-28 mcg by ity of 200 mcg 17:13: 00:00 mouth [place] tablet 46 :00 daily. Medical Branch fenofibrate 2020- No 145mg Take 145 Univers (TRICOR) 06-28-28 mg by ity of 145 mg 17:13: 00:00 mouth [place] tablet 14 :00 daily. Medical Branch acetaminoph Yes 4647 1{tbl} Take 1 Un martha en-codeine 06-28 tablet by ity of 300-30 mg 00:00: mouth [place] tablet 00 every 4 Medical (four) Branch hours as needed for Pain (scale 4-6). Indication s: acute pain primidone 2019-0 Yes 50 mg = 1 Mem oria 50 mg oral 9-04 tab, PO, l tablet 22:46: Bedtime, # Jessie nn 00 30 tab, 2 Refill(s), other, Weight primidone 2019-0 Yes 50 mg = 1 Mem oria 50 mg oral 8-25 tab, PO, l tablet 19:03: BID, # 180 Jessie nn 00 tab, 3 Refill(s), Pharmacy: [facility] #[id number], 149.86, cm, 05/25/20 13:41:00 CDT, Height, 95.455, kg, 05/25/20 13:41:00 CDT, Weight primidone 0 No 50 mg = 1 Mem oria 50 mg oral 6-25 tab, PO, l tablet 13:48: Bedtime, # Jessie nn 00 90 tab, 3 Refill(s), Pharmacy: [id number], 149.86, cm, 03/24/20 9:12:00 CDT, Height, 90.909, kg, 03/24/20 9:12:00 CDT, Weight donepezil 2019-0 Yes 10 mg = 1 Mem oria 10 mg oral 6-24 tab, PO, l tablet 14:32: Daily, # Raul 00 30 tab, 3 Refill(s), Pharmacy: [facility] #[id number], 149.86, cm, 03/24/20 9:12:00 CDT, Height, 90.909, kg, 03/24/20 9:12:00 CDT, Weight primidone No 50 mg = 1 Mem oria 50 mg oral 6-24 tab, PO, l tablet 14:32: Bedtime, X Jessie nn 00 30 day, # 30 tab, 3 Refill(s), Pharmacy: [facility] #[id number], 149.86, cm, 03/24/20 9:12:00 CDT, Height, 90.909, kg, 03/24/20 9:12:00 CDT, Weight sucralfate Yes [id number] .[id number][in_ Apply 0.25 Univers malate, 5- us] Inches as ity of polymerized 00:00: directed 4 [place] 1 gram/10 00 (four) Medical mL Pste times Branch daily as needed for Pain (scale 1-3). sucralfate 2019- No [id number][in_ Apply 0.25 Univers malate, 02-18 09-28 us] Inches as ity of polymerized 00:00: 00:00 directed 4 [place] 1 gram/10 00 :00 (four) Medical mL Pste times Branch daily as needed for Pain (scale 1-3). topiramate 2018-10 No 25 mg = 1 Me moria 25 MG Oral 0-24 tab, PO, l Tablet 20:22: Bedtime, # Jessie nn [Topamax] 00 30 tab, 3 Refill(s) Walker Yes 1 ea, Memoria 7-26 MISC, l 21:45: Daily, # 1 [place] 00 ea, 0 Refill(s) Adult Yes 81 mg = 1 Memoria Aspirin 81 6-21 tab, CHEW, l mg oral 20:18: Daily, # Ajay n tablet, 00 30 tab, 3 chewable Refill(s), Pharmacy: [facility] #[id number] levothyroxi Yes 125 Memori a ne 125 mcg [...] Escitalopra 2019-0 Yes 20 mg = 1 Keesha emoria m 20 MG 5-24 tab, PO, l Oral Tablet 20:06: Daily, # Catalino rmann [Lexapro] 00 30 tab, 0 Refill(s) omeprazole 2019-0 Yes 40 mg = 1 Me moria 40 mg oral 5-24 cap, PO, l delayed 20:06: Daily, # Ajay n release 00 30 cap, 0 capsule Refill(s) amLODIPine 2019-0 Yes 5 mg = 1 Mem oria 5 mg oral 5-24 tab, PO, l tablet 20:06: Daily, # Raul 00 90 tab, 0 Refill(s) Atropine 2019-0 Yes 2 tab, PO, Mem oria Sulfate 5-24 PRN, PRN l 0.025 MG / 20:06: for loose Catalino rmann Diphenoxyla 00 stool, 0 te Refill(s) Hydrochlori de 2.5 MG Oral Tablet [Lomotil] lovastatin 2019-0 Yes 20 mg = 1 Me moria 20 mg oral 5-24 tab, PO, l tablet 20:06: Bedtime, # Jessie nn 00 30 tab, 0 Refill(s) rOPINIRole 2019-0 Yes 2 mg = 1 Mem oria 2 mg oral 5-24 tab, PO, l tablet 20:06: BID, 0 Raul 00 Refill(s) lisinopril 2019-0 Yes 40 mg = 1 Me moria 40 mg oral 5-24 tab, PO, l tablet 20:06: Daily, # [place] 00 30 tab, 0 Refill(s) donepezil 2019-0 Yes 10 mg = 1 Mem oria 10 mg oral 5-24 tab, PO, l tablet 20:06: Daily, # [place] 00 30 tab, 0 Refill(s) ProAir HFA 2019-0 Yes 1 - 2 Memori a 5-24 puffs, PO, l 20:06: Q4H, PRN Raul 00 Wheezing / cough / shortness of breath, # 1 ea, 0 Refill(s) acetaminoph 2018-1 Yes Univer s en-codeine 1-18 ity of 300-30 mg 00:00: [place] tablet 00 Medical Branch acetaminoph 2017-10 Yes Univer s en-codeine 1-18 ity of 300-30 mg 00:00: [place] tablet 00 Medical Branch acetaminoph 2017-10 2020- No Unive rs en-codeine 1-18 - ity of 300-30 mg 00:00: 00:00 [place] tablet 00 :00 Medical Branch lisinopril 2017 Yes 40mg Take 40 mg U nivers [...] 36 (two) Medical times Branch daily. omeprazole 2017 Yes 40mg Take 40 mg U nivers (PRILOSEC) 3-07 by mouth ity o f 40 mg 17:04: daily. [place] capsule 36 Medical Branch fenofibrate Yes 145mg Take 145 U nivers (TRICOR) 3-07 mg by ity of 145 mg 17:04: mouth [place] tablet 36 daily. Medical Branch metoprolol Yes 50mg Take 50 [...] daily. [place] tablet 36 Medical Branch misoprostol 2017-0 Yes 200ug Take 200 U nivers (CYTOTEC) 3-07 mcg by ity of 200 mcg 17:04: mouth [place] tablet 36 daily. Medical Branch amLODIPine 2017-0 Yes 5mg Take 5 mg Un martha (NORVASC) 5 3-07 by mouth ity of mg tablet 17:04: daily. [place] 36 Medical Branch lovastatin 2017-0 Yes 20mg Take 20 mg U nivers [...] 36 times Medical tablet daily. Branch gabapentin 20170 Yes 600mg Take 600 Un martha (NEURONTIN) 3-07 mg by ity of 300 mg 17:04: mouth 2 [place] capsule 36 (two) Medical times Branch daily. omeprazole 20170 Yes 40mg Take 40 mg U nivers (PRILOSEC) 3-07 by mouth ity o f 40 mg 17:04: daily. [place] capsule 36 Medical Branch fenofibrate 20170 Yes 145mg Take 145 U nivers (TRICOR) 3-07 mg by ity of 145 mg 17:04: mouth [place] tablet 36 daily. Medical Branch metoprolol 20170 Yes 50mg Take 50 mg U nivers succinate 3-07 by mouth ity of XL (TOPROL 17:04: daily. [place] XL) 50 mg 36 Medical 24 hr Branch tablet rOPINIRole 2017-0 Yes 2mg Take 2 mg Un martha (REQUIP) 2 3-07 by mouth 2 ity of mg tablet 17:04: (two) [place] 36 times Medical daily. Branch levothyroxi 2017-0 Yes 125ug Take 125 U nivers ne 3-07 mcg by ity of (SYNTHROID) 17:04: mouth [place] 125 mcg 36 daily. Medical tablet Branch donepezil 20170 Yes 10mg Take 10 mg Un martha (ARICEPT) 3-07 by mouth ity of 10 mg 17:04: daily. [place] tablet 36 Medical Branch misoprostol 2017-0 Yes 200ug Take 200 U nivers (CYTOTEC) 3-07 mcg by ity of 200 mcg 17:04: mouth [place] tablet 36 daily. Medical Branch amLODIPine 2017-0 Yes 5mg Take 5 mg Un martha (NORVASC) 5 3-07 by mouth ity of mg tablet 17:04: daily. [place] 36 Medical Branch lovastatin 2017-0 Yes 20mg Take 20 mg U nivers (MEVACOR) 3-07 by mouth ity of 20 mg 17:04: daily. [place] tablet 36 Medical Branch lisinopril 2017-0 Yes 40mg Take 40 mg U nivers (PRINIVIL,Z 3-07 by mouth ity of ESTRIL) 40 17:04: daily. [place] mg tablet 36 Medical Branch escitalopra 2017-0 Yes 20mg Take 20 mg Univers m oxalate 3-07 by mouth 2 ity of (LEXAPRO) 17:04: (two) [place] 20 mg 36 times Medical tablet daily. Branch gabapentin 20170 Yes 600mg Take 600 Un martha (NEURONTIN) 3-07 mg by ity of 300 mg 17:04: mouth 2 [place] capsule 36 (two) Medical times Branch daily. omeprazole 2017-0 Yes 40mg Take 40 mg U nivers (PRILOSEC) 3-07 by mouth ity o f 40 mg 17:04: daily. [place] capsule 36 Medical Branch metoprolol 2017-0 Yes 50mg Take 50 mg U nivers succinate 3-07 by mouth ity of XL (TOPROL 17:04: daily. [place] XL) 50 mg 36 Medical 24 hr Branch tablet rOPINIRole 2017-0 Yes 2mg Take 2 mg Un martha (REQUIP) 2 3-07 by mouth 2 ity of mg tablet 17:04: (two) [place] 36 times Medical daily. Branch levothyroxi 2017-0 Yes 125ug Take 125 U nivers ne 3-07 mcg by ity of (SYNTHROID) 17:04: mouth [place] 125 mcg 36 daily. Medical tablet Branch donepezil 2017-0 Yes 10mg Take 10 mg Un martha (ARICEPT) 3-07 by mouth ity of 10 mg 17:04: daily. [place] tablet 36 Medical Branch amLODIPine 2017-0 Yes 5mg Take 5 mg Un martha (NORVASC) 5 3-07 by mouth ity of mg tablet 17:04: daily. [address] lovastatin 2017-0 Yes 20mg Take 20 mg U nivers (MEVACOR) 3-07 by mouth ity of 20 mg 17:04: daily. [address] Pantoprazol Pantoprazol No Pantoprazo e Sodium e Sodium le Sodium Carvedilol Carvedilol No Carvedilol Famotidine Famotidine No Famotidine Metoprolol Metoprolol No Metoprolol Succinate Succinate Succinate Escitalopra Escitalopra No 1{table QD Escitalopr m Oxalate m Oxalate t} am Oxalate 20 MG 20 MG 20 MG Cephalexin Cephalexin No Cephalexin traMADol traMADol No traMADol HCl HCl HCl rOPINIRole rOPINIRole No 1{table BID rOPINIRole HCl 2 MG HCl 2 MG t} HCl 2 MG Diclofenac Diclofenac No Diclofenac Sodium 1 % Sodium 1 % Sodium 1 % Lomotil Lomotil No Lomotil Sulfamethox Sulfamethox No Sulfametho azole-Trime azole-Trime xazole-Tri thoprim thoprim methoprim Trelegy Trelegy No Trelegy Ellipta Ellipta Ellipta Furosemide Furosemide No Furosemide Lisinopril Lisinopril No 1{table QD Lisinopril 40 MG 40 MG t} 40 MG Omeprazole Omeprazole No QD Omeprazole 40 MG 40 MG 40 MG Flublok Flublok No Flublok Quadrivalen Quadrivalen Quadrivale t t nt amLODIPine amLODIPine No 1{table QD amLODIPine Besylate 5 Besylate 5 t} Besylate 5 MG MG MG Primidone Primidone No Primidone Potassium Potassium No Potassium Chloride Chloride Chloride Neeta ER Neeta ER Neeta ER Levothyroxi Levothyroxi No Levothyrox ne Sodium ne Sodium ine Sodium Donepezil Donepezil No 1{table QD Donepezil HCl 10 MG HCl 10 MG t} HCl 10 MG buPROPion buPROPion No buPROPion HCl ER (XL) HCl ER (XL) HCl ER (XL) Chlorhexidi Chlorhexidi No Chlorhexid ne ne ine Gluconate Gluconate Gluconate Gabapentin Gabapentin No Gabapentin Diclofenac Diclofenac No Diclofenac Sodium 1 % Sodium 1 % Sodium 1 % Lovastatin Lovastatin No QD Lovastatin 20 MG 20 MG 20 MG Acetaminoph Acetaminoph No Acetaminop en-Codeine en-Codeine hen-Codein #3 #3 e #3 Albuterol Albuterol No Albuterol Sulfate HFA Sulfate HFA Sulfate HFA Ciprofloxac Ciprofloxac No Ciprofloxa in HCl in HCl nataliya HCl Clindamycin Clindamycin No Clindamyci HCl HCl n HCl Nitrofurant Nitrofurant No Nitrofuran oin Monohyd oin Monohyd toin Macro Macro Monohyd Macro Gabapentin Gabapentin No Gabapentin Spironolact Spironolact No Spironolac one one tone Potassium Potassium No Potassium Chloride ER Chloride ER Chloride ER Mupirocin Mupirocin No Mupirocin Calcium Calcium Calcium Pantoprazol Pantoprazol No Pantoprazo e Sodium e Sodium le Sodium Carvedilol Carvedilol No Carvedilol Famotidine Famotidine No Famotidine Metoprolol Metoprolol No Metoprolol Succinate Succinate Succinate Escitalopra Escitalopra No 1{table QD Escitalopr m Oxalate m Oxalate t} am Oxalate 20 MG 20 MG 20 MG Cephalexin Cephalexin No Cephalexin traMADol traMADol No traMADol HCl HCl HCl rOPINIRole rOPINIRole No 1{table BID rOPINIRole HCl 2 MG HCl 2 MG t} HCl 2 MG Diclofenac Diclofenac No Diclofenac Sodium 1 % Sodium 1 % Sodium 1 % Lomotil Lomotil No Lomotil Sulfamethox Sulfamethox No Sulfametho azole-Trime azole-Trime xazole-Tri thoprim thoprim methoprim Trelegy Trelegy No Trelegy Ellipta Ellipta Ellipta Furosemide Furosemide No Furosemide Lisinopril Lisinopril No 1{table QD Lisinopril 40 MG 40 MG t} 40 MG Omeprazole Omeprazole No QD Omeprazole 40 MG 40 MG 40 MG Flublok Flublok No Flublok Quadrivalen Quadrivalen Quadrivale t t nt amLODIPine amLODIPine No 1{table QD amLODIPine Besylate 5 Besylate 5 t} Besylate 5 MG MG MG Primidone Primidone No Primidone Potassium Potassium No Potassium Chloride Chloride Chloride Neeta ER Neeta ER Neeta ER Levothyroxi Levothyroxi No Levothyrox ne Sodium ne Sodium ine Sodium Donepezil Donepezil No 1{table QD Donepezil HCl 10 MG HCl 10 MG t} HCl 10 MG buPROPion buPROPion No buPROPion HCl ER (XL) HCl ER (XL) HCl ER (XL) Flublok Flublok No Flublok Quadrivalen Quadrivalen Quadrivale t t nt Potassium Potassium No Potassium Chloride Chloride Chloride Neeta ER Neeta ER Neeta ER Diclofenac Diclofenac No Diclofenac Sodium 1 % Sodium 1 % Sodium 1 % rOPINIRole rOPINIRole No 1{table BID rOPINIRole HCl 2 MG HCl 2 MG t} HCl 2 MG Diclofenac Diclofenac No Diclofenac Sodium 1 % Sodium 1 % Sodium 1 % Albuterol Albuterol No Albuterol Sulfate HFA Sulfate HFA Sulfate HFA Chlorhexidi Chlorhexidi No Chlorhexid ne ne ine Gluconate Gluconate Gluconate traMADol traMADol No traMADol HCl HCl HCl buPROPion buPROPion No buPROPion HCl ER (XL) HCl ER (XL) HCl ER (XL) Lovastatin Lovastatin No QD Lovastatin 20 MG 20 MG 20 MG Furosemide Furosemide No Furosemide Potassium Potassium No Potassium Chloride ER Chloride ER Chloride ER Lomotil Lomotil No Lomotil Gabapentin Gabapentin No Gabapentin Omeprazole Omeprazole No QD Omeprazole 40 MG 40 MG 40 MG Nitrofurant Nitrofurant No Nitrofuran oin Monohyd oin Monohyd toin Macro Macro Monohyd Macro Metoprolol Metoprolol No Metoprolol Succinate Succinate Succinate amLODIPine amLODIPine No 1{table QD amLODIPine Besylate 5 Besylate 5 t} Besylate 5 MG MG MG Mupirocin Mupirocin No Mupirocin Calcium Calcium Calcium Spironolact Spironolact No Spironolac one one tone Escitalopra Escitalopra No 1{table QD Escitalopr m Oxalate m Oxalate t} am Oxalate 20 MG 20 MG 20 MG Pantoprazol Pantoprazol No Pantoprazo e Sodium e Sodium le Sodium Clindamycin Clindamycin No Clindamyci HCl HCl n HCl Cephalexin Cephalexin No Cephalexin Ciprofloxac Ciprofloxac No Ciprofloxa in HCl in HCl nataliya HCl Trelegy Trelegy No Trelegy Ellipta Ellipta Ellipta Lisinopril Lisinopril No 1{table QD Lisinopril 40 MG 40 MG t} 40 MG Gabapentin Gabapentin No Gabapentin Sulfamethox Sulfamethox No Sulfametho azole-Trime azole-Trime xazole-Tri thoprim thoprim methoprim Carvedilol Carvedilol No Carvedilol Primidone Primidone No Primidone Levothyroxi Levothyroxi No Levothyrox ne Sodium ne Sodium ine Sodium Acetaminoph Acetaminoph No Acetaminop en-Codeine en-Codeine hen-Codein #3 #3 e #3 Famotidine Famotidine No Famotidine Donepezil Donepezil No 1{table QD Donepezil HCl 10 MG HCl 10 MG t} HCl 10 MG Flublok Flublok No Flublok Quadrivalen Quadrivalen Quadrivale t t nt Potassium Potassium No Potassium Chloride Chloride Chloride Neeta ER Neeta ER Neeta ER Diclofenac Diclofenac No Diclofenac Sodium 1 % Sodium 1 % Sodium 1 % rOPINIRole rOPINIRole No 1{table BID rOPINIRole HCl 2 MG HCl 2 MG t} HCl 2 MG Diclofenac Diclofenac No Diclofenac Sodium 1 % Sodium 1 % Sodium 1 % Albuterol Albuterol No Albuterol Sulfate HFA Sulfate HFA Sulfate HFA Chlorhexidi Chlorhexidi No Chlorhexid ne ne ine Gluconate Gluconate Gluconate traMADol traMADol No traMADol HCl HCl HCl buPROPion buPROPion No buPROPion HCl ER (XL) HCl ER (XL) HCl ER (XL) Lovastatin Lovastatin No QD Lovastatin 20 MG 20 MG 20 MG Furosemide Furosemide No Furosemide Potassium Potassium No Potassium Chloride ER Chloride ER Chloride ER Lomotil Lomotil No Lomotil Gabapentin Gabapentin No Gabapentin Omeprazole Omeprazole No QD Omeprazole 40 MG 40 MG 40 MG Nitrofurant Nitrofurant No Nitrofuran oin Monohyd oin Monohyd toin Macro Macro Monohyd Macro Metoprolol Metoprolol No Metoprolol Succinate Succinate Succinate amLODIPine amLODIPine No 1{table QD amLODIPine Besylate 5 Besylate 5 t} Besylate 5 MG MG MG Mupirocin Mupirocin No Mupirocin Calcium Calcium Calcium Spironolact Spironolact No Spironolac one one tone Escitalopra Escitalopra No 1{table QD Escitalopr m Oxalate m Oxalate t} am Oxalate 20 MG 20 MG 20 MG Pantoprazol Pantoprazol No Pantoprazo e Sodium e Sodium le Sodium Clindamycin Clindamycin No Clindamyci HCl HCl n HCl Cephalexin Cephalexin No Cephalexin Ciprofloxac Ciprofloxac No Ciprofloxa in HCl in HCl nataliya HCl Trelegy Trelegy No Trelegy Ellipta Ellipta Ellipta Lisinopril Lisinopril No 1{table QD Lisinopril 40 MG 40 MG t} 40 MG Gabapentin Gabapentin No Gabapentin Sulfamethox Sulfamethox No Sulfametho azole-Trime azole-Trime xazole-Tri thoprim thoprim methoprim Carvedilol Carvedilol No Carvedilol Primidone Primidone No Primidone Levothyroxi Levothyroxi No Levothyrox ne Sodium ne Sodium ine Sodium Acetaminoph Acetaminoph No Acetaminop en-Codeine en-Codeine hen-Codein #3 #3 e #3 Famotidine Famotidine No Famotidine Donepezil Donepezil No 1{table QD Donepezil HCl 10 MG HCl 10 MG t} HCl 10 MG Flublok Flublok No Flublok Quadrivalen Quadrivalen Quadrivale t t nt Potassium Potassium No Potassium Chloride Chloride Chloride Neeta ER Neeta ER Neeta ER Diclofenac Diclofenac No Diclofenac Sodium 1 % Sodium 1 % Sodium 1 % rOPINIRole rOPINIRole No 1{table BID rOPINIRole HCl 2 MG HCl 2 MG t} HCl 2 MG Diclofenac Diclofenac No Diclofenac Sodium 1 % Sodium 1 % Sodium 1 % Albuterol Albuterol No Albuterol Sulfate HFA Sulfate HFA Sulfate HFA Chlorhexidi Chlorhexidi No Chlorhexid ne ne ine Gluconate Gluconate Gluconate traMADol traMADol No traMADol HCl HCl HCl Advair Advair No Advair Devoted Diskus 250 Diskus 250 Diskus 250 Medical mcg-50 mcg-50 mcg-50 Group mcg/dose mcg/dose mcg/dose powder for powder for powder for inhalation inhalation inhalation INHALE 1 INHALE 1 INHALE 1 PUFF BY PUFF BY PUFF BY MOUTH TWICE MOUTH TWICE MOUTH DAILY DAILY TWICE DAILY buPROPion buPROPion No buPROPion HCl ER (XL) HCl ER (XL) HCl ER (XL) Lovastatin Lovastatin No QD Lovastatin 20 MG 20 MG 20 MG Furosemide Furosemide No Furosemide Potassium Potassium No Potassium Chloride ER Chloride ER Chloride ER Lomotil Lomotil No Lomotil Gabapentin Gabapentin No Gabapentin albuterol albuterol No albuterol Devoted sulfate HFA sulfate HFA sulfate Medical 90 90 HFA 90 Group mcg/actuati mcg/actuati mcg/actuat on aerosol on aerosol ion inhaler inhaler aerosol INHALE 2 INHALE 2 inhaler PUFFS BY PUFFS BY INHALE 2 MOUTH EVERY MOUTH EVERY PUFFS BY 6 HOURS 6 HOURS MOUTH EVERY 6 HOURS Omeprazole Omeprazole No QD Omeprazole 40 MG 40 MG 40 MG Nitrofurant Nitrofurant No Nitrofuran oin Monohyd oin Monohyd toin Macro Macro Monohyd Macro Metoprolol Metoprolol No Metoprolol Succinate Succinate Succinate amLODIPine amLODIPine No 1{table QD amLODIPine Besylate 5 Besylate 5 t} Besylate 5 MG MG MG Mupirocin Mupirocin No Mupirocin Calcium Calcium Calcium amlodipine amlodipine No amlodipine Devoted 10 mg 10 mg 10 mg Medical tablet TAKE tablet TAKE tablet Group 1 TABLET BY 1 TABLET BY TAKE 1 MOUTH EVERY MOUTH EVERY TABLET BY DAY DAY MOUTH EVERY DAY Spironolact Spironolact No Spironolac one one tone Escitalopra Escitalopra No 1{table QD Escitalopr m Oxalate m Oxalate t} am Oxalate 20 MG 20 MG 20 MG Pantoprazol Pantoprazol No Pantoprazo e Sodium e Sodium le Sodium Clindamycin Clindamycin No Clindamyci HCl HCl n HCl Cephalexin Cephalexin No Cephalexin Ciprofloxac Ciprofloxac No Ciprofloxa in HCl in HCl nataliya HCl amlodipine amlodipine No amlodipine Devoted 5 mg tablet 5 mg tablet 5 mg M edical TAKE 1 TAKE 1 tablet Group TABLET BY TABLET BY TAKE 1 MOUTH EVERY MOUTH EVERY TABLET BY DAY DAY MOUTH EVERY DAY Trelegy Trelegy No Trelegy Ellipta Ellipta Ellipta Lisinopril Lisinopril No 1{table QD Lisinopril 40 MG 40 MG t} 40 MG Gabapentin Gabapentin No Gabapentin Sulfamethox Sulfamethox No Sulfametho azole-Trime azole-Trime xazole-Tri thoprim thoprim methoprim Carvedilol Carvedilol No Carvedilol Breo Breo No Breo Devoted Ellipta 200 Ellipta 200 Ellipta Medical mcg-25 mcg-25 200 mcg-25 Group mcg/dose mcg/dose mcg/dose powder for powder for powder for inhalation inhalation inhalation TAKE 1 PUFF TAKE 1 PUFF TAKE 1 BY MOUTH BY MOUTH PUFF BY EVERY DAY EVERY DAY MOUTH EVERY DAY Primidone Primidone No Primidone Levothyroxi Levothyroxi No Levothyrox ne Sodium ne Sodium ine Sodium Acetaminoph Acetaminoph No Acetaminop en-Codeine en-Codeine hen-Codein #3 #3 e #3 Famotidine Famotidine No Famotidine Donepezil Donepezil No 1{table QD Donepezil HCl 10 MG HCl 10 MG t} HCl 10 MG amLODIPine amLODIPine No 1{table QD amLODIPine Besylate 5 Besylate 5 t} Besylate 5 MG MG MG bupropion bupropion No bupropion Devoted HCl XL 150 HCl XL 150 HCl XL 150 Medical mg 24 hr mg 24 hr mg 24 hr Anand up tablet, tablet, tablet, extended extended extended release release release TAKE 1 TAKE 1 TAKE 1 TABLET BY TABLET BY TABLET BY MOUTH TWICE MOUTH TWICE MOUTH A DAY A DAY TWICE A DAY Omeprazole Omeprazole No QD Omeprazole 40 MG 40 MG 40 MG buPROPion buPROPion No buPROPion HCl ER (XL) HCl ER (XL) HCl ER (XL) Mupirocin Mupirocin No Mupirocin Calcium Calcium Calcium traMADol traMADol No traMADol HCl HCl HCl Metoprolol Metoprolol No Metoprolol Succinate Succinate Succinate Pantoprazol Pantoprazol No Pantoprazo e Sodium e Sodium le Sodium carvedilol carvedilol No carvedilol Devoted 6.25 mg 6.25 mg 6.25 mg Medica l tablet TAKE tablet TAKE tablet Group 1 TABLET BY 1 TABLET BY TAKE 1 MOUTH TWICE MOUTH TWICE TABLET BY A DAY A DAY MOUTH TWICE A DAY Potassium Potassium No Potassium Chloride Chloride Chloride Neeta ER Neeta ER Neeta ER Diclofenac Diclofenac No Diclofenac Sodium 1 % Sodium 1 % Sodium 1 % Cephalexin Cephalexin No Cephalexin Diclofenac Diclofenac No Diclofenac Sodium 1 % Sodium 1 % Sodium 1 % Donepezil Donepezil No 1{table QD Donepezil HCl 10 MG HCl 10 MG t} HCl 10 MG donepezil donepezil No donepezil Devoted 10 mg 10 mg 10 mg Medical tablet TAKE tablet TAKE tablet Group 1 TABLET BY 1 TABLET BY TAKE 1 MOUTH EVERY MOUTH EVERY TABLET BY DAY DAY MOUTH EVERY DAY Lisinopril Lisinopril No 1{table QD Lisinopril 40 MG 40 MG t} 40 MG Lovastatin Lovastatin No QD Lovastatin 20 MG 20 MG 20 MG Furosemide Furosemide No Furosemide Potassium Potassium No Potassium Chloride ER Chloride ER Chloride ER Albuterol Albuterol No Albuterol Sulfate HFA Sulfate HFA Sulfate HFA Sulfamethox Sulfamethox No Sulfametho azole-Trime azole-Trime xazole-Tri thoprim thoprim methoprim escitalopra escitalopra No escitalopr Devoted m 20 mg m 20 mg am 20 mg Medic al tablet TAKE tablet TAKE tablet Group 1 TABLET BY 1 TABLET BY TAKE 1 MOUTH TWICE MOUTH TWICE TABLET BY A DAY A DAY MOUTH TWICE A DAY Escitalopra Escitalopra No 1{table QD Escitalopr m Oxalate m Oxalate t} am Oxalate 20 MG 20 MG 20 MG Clindamycin Clindamycin No Clindamyci HCl HCl n HCl Flublok Flublok No Flublok Quadrivalen Quadrivalen Quadrivale t t nt Gabapentin Gabapentin No Gabapentin Levothyroxi Levothyroxi No Levothyrox ne Sodium ne Sodium ine Sodium famotidine famotidine No famotidine Devoted 20 mg 20 mg 20 mg Medical tablet TAKE tablet TAKE tablet Group 1 TABLET BY 1 TABLET BY TAKE 1 MOUTH EVERY MOUTH EVERY TABLET BY DAY DAY MOUTH EVERY DAY rOPINIRole rOPINIRole No 1{table BID rOPINIRole HCl 2 MG HCl 2 MG t} HCl 2 MG Chlorhexidi Chlorhexidi No Chlorhexid ne ne ine Gluconate Gluconate Gluconate Nitrofurant Nitrofurant No Nitrofuran oin Monohyd oin Monohyd toin Macro Macro Monohyd Macro Lomotil Lomotil No Lomotil Famotidine Famotidine No Famotidine Carvedilol Carvedilol No Carvedilol gabapentin gabapentin No gabapentin Devoted 300 mg 300 mg 300 mg Medical capsule capsule capsule Group TAKE 1 TAKE 1 TAKE 1 CAPSULE BY CAPSULE BY CAPSULE BY MOUTH TWICE MOUTH TWICE MOUTH A DAY A DAY TWICE A DAY Acetaminoph Acetaminoph No Acetaminop en-Codeine en-Codeine hen-Codein #3 #3 e #3 Spironolact Spironolact No Spironolac one one tone Primidone Primidone No Primidone Gabapentin Gabapentin No Gabapentin Trelegy Trelegy No Trelegy Ellipta Ellipta Ellipta Ciprofloxac Ciprofloxac No Ciprofloxa in HCl in HCl nataliya HCl ipratropium ipratropium No ipratropiu Devoted bromide 21 bromide 21 m bromide Medical mcg (0.03 mcg (0.03 21 mcg Anand up %) nasal %) nasal (0.03 %) spray USE spray USE nasal SPRAY UP TO SPRAY UP TO spray USE 4 TIMES 4 TIMES SPRAY UP DAILY DAILY TO 4 TIMES DAILY Chlorhexidi Chlorhexidi No Chlorhexid ne ne ine Gluconate Gluconate Gluconate Gabapentin Gabapentin No Gabapentin Diclofenac Diclofenac No Diclofenac Sodium 1 % Sodium 1 % Sodium 1 % Lovastatin Lovastatin No QD Lovastatin 20 MG 20 MG 20 MG levothyroxi levothyroxi No levothyrox Devoted ne 125 mcg ne 125 mcg ine 125 Medical tablet TAKE tablet TAKE mcg tablet Group 1 TABLET BY 1 TABLET BY TAKE 1 MOUTH EVERY MOUTH EVERY TABLET BY DAY DAY MOUTH EVERY DAY Acetaminoph Acetaminoph No Acetaminop en-Codeine en-Codeine hen-Codein #3 #3 e #3 Albuterol Albuterol No Albuterol Sulfate HFA Sulfate HFA Sulfate HFA Ciprofloxac Ciprofloxac No Ciprofloxa in HCl in HCl nataliya HCl Clindamycin Clindamycin No Clindamyci HCl HCl n HCl Nitrofurant Nitrofurant No Nitrofuran oin Monohyd oin Monohyd toin Macro Macro Monohyd Macro lisinopril lisinopril No 1 Q1D lisinopril Devoted 40 mg 40 mg 40 mg Medical tablet Take tablet Take tablet Group 1 tablet 1 tablet Take 1 every day every day tablet by oral by oral every day route. route. by oral route. Gabapentin Gabapentin No Gabapentin Spironolact Spironolact No Spironolac one one tone Potassium Potassium No Potassium Chloride ER Chloride ER Chloride ER Mupirocin Mupirocin No Mupirocin Calcium Calcium Calcium lovastatin lovastatin No lovastatin Devoted 20 mg 20 mg 20 mg Medical tablet TAKE tablet TAKE tablet Group 1 TABLET BY 1 TABLET BY TAKE 1 MOUTH EVERY MOUTH EVERY TABLET BY DAY DAY MOUTH EVERY DAY Pantoprazol Pantoprazol No Pantoprazo e Sodium e Sodium le Sodium Carvedilol Carvedilol No Carvedilol Famotidine Famotidine No Famotidine Metoprolol Metoprolol No Metoprolol Succinate Succinate Succinate Escitalopra Escitalopra No 1{table QD Escitalopr m Oxalate m Oxalate t} am Oxalate 20 MG 20 MG 20 MG metoprolol metoprolol No metoprolol Devoted succinate succinate succinate Medical 50 mg daily 50 mg daily 50 mg Group daily Cephalexin Cephalexin No Cephalexin traMADol traMADol No traMADol HCl HCl HCl rOPINIRole rOPINIRole No 1{table BID rOPINIRole HCl 2 MG HCl 2 MG t} HCl 2 MG Diclofenac Diclofenac No Diclofenac Sodium 1 % Sodium 1 % Sodium 1 % Lomotil Lomotil No Lomotil Sulfamethox Sulfamethox No Sulfametho azole-Trime azole-Trime xazole-Tri thoprim thoprim methoprim omeprazole omeprazole No omeprazole Devoted 40 mg 40 mg 40 mg Medical capsule,del capsule,del capsule,de Group ayed ayed layed release release release TAKE 1 TAKE 1 TAKE 1 CAPSULE BY CAPSULE BY CAPSULE BY MOUTH EVERY MOUTH EVERY MOUTH DAY DAY EVERY DAY Trelegy Trelegy No Trelegy Ellipta Ellipta Ellipta Furosemide Furosemide No Furosemide Lisinopril Lisinopril No 1{table QD Lisinopril 40 MG 40 MG t} 40 MG Omeprazole Omeprazole No QD Omeprazole 40 MG 40 MG 40 MG Flublok Flublok No Flublok Quadrivalen Quadrivalen Quadrivale t t nt potassium potassium No potassium Devoted chloride ER chloride ER chloride Medical 10 mEq 10 mEq ER 10 mEq Group capsule,ext capsule,ext capsule,ex ended ended tended release release release TAKE 1 TAKE 1 TAKE 1 CAPSULE BY CAPSULE BY CAPSULE BY MOUTH EVERY MOUTH EVERY MOUTH DAY DAY EVERY DAY amLODIPine amLODIPine No 1{table QD amLODIPine Besylate 5 Besylate 5 t} Besylate 5 MG MG MG Primidone Primidone No Primidone Potassium Potassium No Potassium Chloride Chloride Chloride Neeta ER Neeta ER Neeta ER Levothyroxi Levothyroxi No Levothyrox ne Sodium ne Sodium ine Sodium Donepezil Donepezil No 1{table QD Donepezil HCl 10 MG HCl 10 MG t} HCl 10 MG buPROPion buPROPion No buPROPion HCl ER (XL) HCl ER (XL) HCl ER (XL) primidone primidone No primidone Devoted 50 mg 50 mg 50 mg Medical tablet TAKE tablet TAKE tablet Group 1 TABLET BY 1 TABLET BY TAKE 1 MOUTH MOUTH TABLET BY EVERYDAY AT EVERYDAY AT MOUTH BEDTIME BEDTIME EVERYDAY AT BEDTIME Chlorhexidi Chlorhexidi No Chlorhexid ne ne ine Gluconate Gluconate Gluconate Gabapentin Gabapentin No Gabapentin Diclofenac Diclofenac No Diclofenac Sodium 1 % Sodium 1 % Sodium 1 % Lovastatin Lovastatin No QD Lovastatin 20 MG 20 MG 20 MG Acetaminoph Acetaminoph No Acetaminop en-Codeine en-Codeine hen-Codein #3 #3 e #3 ropinirole ropinirole No ropinirole Devoted 2 mg tablet 2 mg tablet 2 mg M edical TAKE 1 TAKE 1 tablet Group TABLET BY TABLET BY TAKE 1 MOUTH TWICE MOUTH TWICE TABLET BY A DAY A DAY MOUTH TWICE A DAY Albuterol Albuterol No Albuterol Sulfate HFA Sulfate HFA Sulfate HFA Ciprofloxac Ciprofloxac No Ciprofloxa in HCl in HCl nataliya HCl Clindamycin Clindamycin No Clindamyci HCl HCl n HCl Nitrofurant Nitrofurant No Nitrofuran oin Monohyd oin Monohyd toin Macro Macro Monohyd Macro Gabapentin Gabapentin No Gabapentin Spironolact Spironolact No Spironolac one one tone Potassium Potassium No Potassium Chloride ER Chloride ER Chloride ER Mupirocin Mupirocin No Mupirocin Calcium Calcium Calcium spironolact spironolact No spironolac Devoted one 25 mg one 25 mg tone 25 mg Medical tablet TAKE tablet TAKE tablet Group 1 TABLET BY 1 TABLET BY TAKE 1 MOUTH EVERY MOUTH EVERY TABLET BY DAY DAY MOUTH EVERY DAY topiramate topiramate No topiramate Devoted 25 mg 25 mg 25 mg Medical tablet TAKE tablet TAKE tablet Group 1 TABLET BY 1 TABLET BY TAKE 1 MOUTH AT MOUTH AT TABLET BY BEDTIME BEDTIME MOUTH AT BEDTIME Trelegy Trelegy No Trelegy Devote d Ellipta 100 Ellipta 100 Ellipta Medical mcg-62.5 mcg-62.5 100 Group mcg-25 mcg mcg-25 mcg mcg-62.5 powder for powder for mcg-25 mcg inhalation inhalation powder for INHALE 1 INHALE 1 inhalation PUFF BY PUFF BY INHALE 1 MOUTH EVERY MOUTH EVERY PUFF BY DAY DAY MOUTH EVERY DAY Vital Signs Vital Name Observation Time Observation Value Comments Source height 2022-06-15 13:30:00 59 [in_i] [facility] weight 2022-06-15 13:30:00 193 [lb_av] [facility] temperature 2022-06-15 13:30:00 98.1 [degF] [facility] bmi 2022-06-15 13:30:00 38.98 kg/m2 [facility] blood pressure 2022-06-15 13:30:00 128 mm[Hg] [facility] blood pressure 2022-06-15 13:30:00 76 mm[Hg] [facility] diastolic [facility] height 2021-10-17 14:30:00 59 [in_i] [facility] weight 2021-10-17 14:30:00 220 [lb_av] [facility] temperature 2021-10-17 14:30:00 97.9 [degF] [facility] bmi 2021-10-17 14:30:00 44.43 kg/m2 [facility] blood pressure 2021-10-17 14:30:00 126 mm[Hg] [facility] systolic [facility] blood pressure 2021-10-17 14:30:00 74 mm[Hg] [facility] diastolic [facility] Systolic blood 2020-06-28 19:30:00 180 mm[Hg] [facility] Diastolic blood 2020-06-28 19:30:00 82 mm[Hg] [facility] Heart rate 2020-06-28 19:30:00 61 /min [facility] Respiratory rate 2020-06-28 19:13:00 17 /min [facility] Oxygen saturation in 2020-06-28 19:13:00 96 /min [facility] Arterial blood by [facility] Pulse oximetry Branch Body temperature 2020-06-28 16:54:00 36.33 [facility] weight 2020-06-28 16:54:00 95.255 kg [facility] BMI 2020-06-28 16:54:00 42.41 kg/m2 [facility] Systolic blood 2020-06-28 19:30:00 180 mm[Hg] [facility] Diastolic blood 2020-06-28 19:30:00 82 mm[Hg] [facility] Heart rate 2020-06-28 19:30:00 61 /min [facility] Respiratory rate 2020-06-28 19:13:00 17 /min [facility] Oxygen saturation in 2020-06-28 19:13:00 96 /min [facility] Arterial blood by [facility] Pulse oximetry Branch Body temperature 2020-06-28 16:54:00 36.33 Tracee [facility] Body weight 2020-06-28 16:54:00 95.255 kg [facility] BMI 2020-06-28 16:54:00 42.41 kg/m2 [facility] Systolic blood 2020-02-19 19:23:00 160 mm[Hg] [facility] Diastolic blood 2020-02-19 19:23:00 84 mm[Hg] [facility] Heart rate 2020-02-19 19:23:00 63 /min [facility] Body temperature 2020-02-19 19:23:00 36.39 Tracee [facility] Respiratory rate 2020-02-19 19:23:00 15 /min [facility] Body height 2020-02-19 19:23:00 149.9 cm [facility] Body weight 2020-02-19 19:23:00 99.791 kg [facility] BMI 2020-02-19 19:23:00 44.43 kg/m2 [facility] Oxygen saturation in 2020-02-19 19:23:00 96 /min [facility] Arterial blood by [facility] Pulse oximetry Branch Systolic blood 2020-02-19 19:23:00 160 mm[Hg] [facility] Diastolic blood 2020-02-19 19:23:00 84 mm[Hg] [facility] Heart rate 2020-02-19 19:23:00 63 /min [facility] Body temperature 2020-02-19 19:23:00 36.39 Tracee [facility] Respiratory rate 2020-02-19 19:23:00 15 /min [facility] Body height 2020-02-19 19:23:00 149.9 cm [facility] Body weight 2020-02-19 19:23:00 99.791 kg [facility] BMI 2020-02-19 19:23:00 44.43 kg/m2 [facility] Oxygen saturation in 2020-02-19 19:23:00 96 /min [facility] Arterial blood by [facility] Pulse oximetry Branch Systolic blood 2019-12-10 04:00:00 202 mm[Hg] [facility] Diastolic blood 2019-12-10 04:00:00 92 mm[Hg] [facility] Heart rate 2019-12-10 04:00:00 75 /min [facility] Respiratory rate 2019-12-10 04:00:00 18 /min [facility] Oxygen saturation in 2019-12-10 04:00:00 98 /min [facility] Arterial blood by [facility] Pulse oximetry Branch Body temperature 2019-12-10 02:51:13 36.39 Tracee [facility] Body height 2019-12-10 02:28:00 162.6 cm [facility] Body weight 2019-12-10 02:28:00 104.327 kg [facility] [place] [facility] BMI 2019-12-10 02:28:00 39.48 kg/m2 [facility] Systolic blood 2019-12-10 04:00:00 202 mm[Hg] [facility] Diastolic blood 2019-12-10 04:00:00 92 mm[Hg] [facility] Heart rate 2019-12-10 04:00:00 75 /min [facility] Respiratory rate 2019-12-10 04:00:00 18 /min [facility] Oxygen saturation in 2019-12-10 04:00:00 98 /min [facility] Arterial blood by [facility] Pulse oximetry Branch Body temperature 2019-12-10 02:51:13 36.39 Tracee [facility] Body height 2019-12-10 02:28:00 162.6 cm [facility] Body weight 2019-12-10 02:28:00 104.327 kg [facility] BMI 2019-12-10 02:28:00 39.48 kg/m2 [facility] Systolic (mm Hg) 2021-11-02 20:14:00 Jose Francisco rial [place] Diastolic (mm Hg) 2021-11-02 20:14:00 [facility] Heart Rate 2021-11-02 20:14:00 [facility] Respitory Rate 2021-11-02 20:14:00 [facility] Height 2021-11-02 20:14:00 149.86 cm [facility] [place] Weight 2021-11-02 20:14:00 [facility] BMI Calculated 2021-11-02 20:14:00 [facility] Systolic (mm Hg) 2020-12-24 18:59:00 Jose Francisco rial [place] Diastolic (mm Hg) 2020-12-24 18:59:00 [facility] [place] Heart Rate 2020-12-24 18:59:00 [facility] Respitory Rate 2020-12-24 18:59:00 [facility] [place] Height 2020-12-24 18:59:00 149.86 cm [facility] Weight 2020-12-24 18:59:00 [facility] [place] BMI Calculated 2020-12-24 18:59:00 [facility] Systolic (mm Hg) 2020-09-06 20:47:00 Jose Francisco rial [place] Diastolic (mm Hg) 2020-09-06 20:47:00 [facility] Temperature Oral (F) 2020-09-06 18:26:00 99.7 F [facility] [place] Heart Rate 2020-09-06 18:26:00 [facility] [place] Respitory Rate 2020-09-06 18:26:00 [facility] [place] Systolic (mm Hg) 2020-09-06 18:26:00 Jose Francisco rial [place] Diastolic (mm Hg) 2020-09-06 18:26:00 [facility] Temperature Oral (F) 2020-09-06 14:09:00 98.1 F [facility] [place] Heart Rate 2020-09-06 14:09:00 [facility] [place] Respitory Rate 2020-09-06 14:09:00 [facility] Systolic (mm Hg) 2020-09-06 14:09:00 Jose Francisco rial [place] Diastolic (mm Hg) 2020-09-06 14:09:00 [facility] [place] Temperature Oral (F) 2020-09-06 10:00:00 98.1 F [facility] Heart Rate 2020-09-06 10:00:00 [facility] Respitory Rate 2020-09-06 10:00:00 [facility] Temperature Oral (F) 2020-09-06 06:30:00 97.5 F [facility] Heart Rate 2020-09-06 06:30:00 [facility] [place] Respitory Rate 2020-09-06 06:30:00 [facility] [place] Systolic (mm Hg) 2020-09-06 06:30:00 Jose Francisco rial [place] Diastolic (mm Hg) 2020-09-06 06:30:00 [facility] Temperature Oral (F) 2020-09-06 02:45:00 97.8 F [facility] [place] Heart Rate 2020-09-06 02:45:00 [facility] [place] Respitory Rate 2020-09-06 02:45:00 [facility] [place] Systolic (mm Hg) 2020-09-06 02:45:00 Jose Francisco rial [place] Diastolic (mm Hg) 2020-09-06 02:45:00 [facility] [place] Temperature Oral (F) 2020-09-05 22:00:00 97 F [facility] Heart Rate 2020-09-05 22:00:00 [facility] Respitory Rate 2020-09-05 22:00:00 [facility] Systolic (mm Hg) 2020-09-05 22:00:00 Jose Francisco rial [place] Diastolic (mm Hg) 2020-09-05 22:00:00 [facility] Height 2020-09-05 02:46:00 124.46 cm [facility] [place] BMI Calculated 2020-09-05 02:46:00 [facility] Weight 2020-09-05 02:46:00 [facility] Systolic (mm Hg) 2020-05-25 18:41:00 Jose Francisco rial [place] Diastolic (mm Hg) 2020-05-25 18:41:00 [facility] [place] Heart Rate 2020-05-25 18:41:00 [facility] [place] Respitory Rate 2020-05-25 18:41:00 [facility] Temperature Oral (F) 2020-05-25 18:41:00 98.6 F [facility] Height 2020-05-25 18:41:00 149.86 cm [facility] [place] Weight 2020-05-25 18:41:00 [facility] BMI Calculated 2020-05-25 18:41:00 [facility] [place] Systolic (mm Hg) 2020-03-24 14:12:00 Jose Francisco rial [place] Diastolic (mm Hg) 2020-03-24 14:12:00 [facility] Heart Rate 2020-03-24 14:12:00 [facility] [place] Height 2020-03-24 14:12:00 149.86 cm [facility] Weight 2020-03-24 14:12:00 [facility] [place] BMI Calculated 2020-03-24 14:12:00 Memori al R[place] Systolic (mm Hg) 2019-07-24 19:29:00 Jose Francisco rial [place] Diastolic (mm Hg) 2019-07-24 19:29:00 [facility] [place] Heart Rate 2019-07-24 19:29:00 [facility] [place] Respitory Rate 2019-07-24 19:29:00 [facility] Height 2019-07-24 19:29:00 149.86 cm [facility] [place] Weight 2019-07-24 19:29:00 [facility] [place] BMI Calculated 2019-07-24 19:29:00 [facility] Systolic (mm Hg) 2019-05-21 19:25:00 Jose Francisco rial [place] Diastolic (mm Hg) 2019-05-21 19:25:00 [facility] [place] Heart Rate 2019-05-21 19:25:00 [facility] [place] Respitory Rate 2019-05-21 19:25:00 [facility] Height 2019-05-21 19:25:00 149.86 cm [facility] Weight 2019-05-21 19:25:00 [facility] BMI Calculated 2019-05-21 19:25:00 [facility] Height 2019-03-21 19:45:00 147.32 cm [facility] Weight 2019-03-21 19:45:00 [facility] [place] BMI Calculated 2019-03-21 19:45:00 [facility] [place] Respitory Rate 2019-03-21 19:45:00 [facility] [place] Heart Rate 2019-03-21 19:45:00 [facility] [place] Systolic (mm Hg) 2019-03-21 19:45:00 Jose Francisco rial [place] Diastolic (mm Hg) 2019-03-21 19:45:00 [facility] [place] Height 2019-02-21 20:01:00 149.86 cm Nancy Carter Weight 2019-02-21 20:01:00 Nancy Carter BMI Calculated 2019-02-21 20:01:00 Carlotta Samano Respitory Rate 2019-02-21 20:01:00 Carlotta Samano Heart Rate 2019-02-21 20:01:00 Nancy Carter Systolic (mm Hg) 2019-02-21 20:01:00 Jose Francisco Carter Diastolic (mm Hg) 2019-02-21 20:01:00 [facility] Procedures Procedure Date / Time Performed Performing Clinician Mike e XR FOREARM 2 VW RIGHT 2020-06-28 17:49:[address] [facility] XR SHOULDER 2+ VW 2020-06-28 17:49:01 Sariah Miller [facility] CONSENT/REFUSAL FOR 2020-02-19 18:58:01 Doctor Unassigned, No Un [facility] DIAGNOSIS AND Name Medical Branch TREATMENT XR TIBIA FIBULA 2 VW 2019-12-10 03:20:47 Timi Aguirre [facility] Encounters Start End Encounter Admission Attending Care Care Encounter Source Date/Time Date/Time Type Type Clinicians Facility Department ID 2022-07-26 Outpatient STLMLC STLMLC [id number] Common 16:10:00 [id number] [facility] 2022-06-16 Outpatient STLMLC STLMLC [id number] Common 09:53:02 [id number] [facility] 2021-10-26 Outpatient STLMLC STLMLC [id number] Common 13:00:46 [id number] [facility] 2021-10-26 Outpatient STLMLC STLMLC [id number] Common 12:25:20 [id number] [facility] 2021-10-26 Outpatient STLMLC STLMLC [id number] Common 12:16:59 [id number] [facility] 2021-10-05 Inpatient NIC Sanderson, HCAWU ADMI [id number] [facility] 11:00:[address] [facility] 2021-07-[address] [facility] [id number] Univers 19:46:17 [facility] 2021-07-[address] [facility] [id number] Univers 21:53:33 [facility] 2022-06-15 2022-06-15 OFFICE STLMLC STLMLC [id number] Co mmon 00:00:00 00:00:00 VISIT [facility] LEVEL 4 [facility] 2022-04-28 2022-04-28 Ambulatory nullFlavo MNA [id number] Memoria 19:00:00 19:00:00 Pre-Reg r Neurology 14 l Lana Carter 2022-04-28 2022-04-28 Outpatient MHIE FRANCESCO [id number] Memoria 14:00:00 14:00:00 14 l Raul 2022-04-28 2022-04-28 Outpatient YURIDIA Garcia [id number] 14:00:00 14:00:00 Jeffrey 14 [facility] 2022-04-14 2022-04-14 Outpatient Canales_M DMG DMG [id number] [facility] 07:15:00 07:15:00 0715 [facility] l [facility] 2021-12-15 2021-12-15 (TEL) STLMLC STLMLC [id number] Co mmon 00:00:00 00:00:00 [facility] 2021-12-08 2021-12-08 (TEL) STLMLC STLMLC [id number] Co mmon 00:00:00 00:00:00 [facility] 2021-11-29 2021-11-29 OL DIG E/M STLMLC STLMLC [id number] Common 00:00:00 00:00:00 SVC 5-10 Spiri t MIN [facility] 2021-11-21 2021-11-21 (TEL) STLMLC STLMLC [id number] Co mmon 00:00:00 00:00:00 [facility] 2021-11-02 2021-11-03 Outpatient nullFlavo MNA [id number] Memoria 19:30:00 05:59:59 r Neurology 13 l Lana Carter 2021-11-02 2021-11-02 Outpatient YURIDIA Garcia [id number] 13:30:00 23:59:59 Jeffrey 13 [place] 2021-11-02 2021-11-02 Ambulatory nullFlavo MNA [id number] Memoria 19:00:00 19:00:00 Pre-Reg r Neurology 12 l Lana Carter 2021-11-02 2021-11-02 Outpatient MHIE MHIE [id number] Memoria 13:30:00 13:30:00 13 lavelle Carter 2021-11-02 2021-11-02 Outpatient MHIE FRANCESCO [id number] Memoria 13:00:00 13:00:00 12 lavelle Carter 2021-11-02 2021-11-02 [facility] [id number] 13:00:00 13:00:00 Jeffrey Ventura Shafer 2021-10-26 2021-10-26 (TEL) STLMLC STLMLC [id number] Co mmon 00:00:00 00:00:00 Spirit - [facility]I [facility] 2021-10-17 2021-10-17 OFFICE STLMLC STLMLC [id number] Co mmon 00:00:00 00:00:00 VISIT Spirit ESTAB PT - CHI LEVEL 4 [facility] 2021-10-03 2021-10-03 CAV Allegra [id number]. [id number]. CLAC [id number] [facility] 20:00:00 21:30:00 Valentín [id number]. [facility] [id number] 2021-08-29 2021-08-29 Outpatient Canales_M DMG DMG [id number] [facility] 12:42:00 12:42:00 1129 [facility] l [facility] 2021-06-28 2021-06-28 Ambulatory nullFlavo MNA [id number] Memoria 19:00:00 19:00:00 Pre-Reg r Neurology 11 l Lana Carter 2021-06-28 2021-06-28 Outpatient MHIE MHIE [id number] Memoria 14:00:00 14:00:00 11 lavelle [place] 2021-06-28 2021-06-28 Outpatient [id number] 14:00:00 14:00:00 Jeffrey Shafer 2021-05-16 2021-05-16 Outpatient STLMLC STLMLC [id number] Common 00:00:00 00:00:00 [facility] 2021-05-10 2021-05-10 Outpatient STLMLC STLMLC [id number] Common 00:00:00 00:00:00 [facility] 2021-04-12 2021-04-12 Outpatient STLMLC STLMLC [id number] Common 00:00:00 00:00:00 [facility] 2021-03-28 2021-03-28 Outpatient Olivia-Mbayo VFP VFP [id number] Village 05:32:00 05:32:00 _A_AH [id number] [facility] Practic e 2021-03-07 2021-03-07 Outpatient STLMLC STLMLC [id number] Common 00:00:00 00:00:00 [facility] 2021-02-08 2021-02-08 Outpatient STLMLC STLMLC [id number] Common 00:00:00 00:00:00 [facility] 2021-01-28 2021-01-30 Outside nullFlavo MNA [id number] Memoria 14:05:24 04:59:59 Medical r Neurology 01 l Records [place] 2021-01-28 2021-01-29 Outpatient MHMISCHER MHMISCHER [id number] 09:05:24 23:59:59 01 2021-01-18 2021-01-18 Outpatient Olivia-Mbayo VFP VFP [id number] [facility] 01:43:00 01:43:00 _A_AH [id number] Family Practic e 2021-01-14 2021-01-14 Outpatient Solitario_Keesha SILVA [id number] [facility] 05:20:00 05:20:00 0416 Medica l Group 2021-01-14 2021-01-14 Caitlyn BAEZA MA - [id number] D evoted 00:00:00 00:00:00 Radha Jerez, Health Group [employer] SCI[employer] PROFESSOR: [id number] [address], [address], [place] [address] , Ph. 2021-01-14 2021-01-14 Outpatient Jerez, DMG DMG [id number] 00:00:00 00:00:00 Caitlyn [id number] Radha [id number] 2021-01-13 2021-01-13 Outpatient Canales_M DMG DMG [id number] [facility] 05:35:00 05:35:00 0415 [facility]ica l Group 2021-01-12 2021-01-12 Outpatient Canales_M DMG DMG [id number] [facility] 04:16:00 04:16:00 0414 [facility] l Group 2020-12-24 2020-12-25 Outpatient nullFlavo MNA [id number] Memoria 18:45:00 04:59:59 r Neurology 10 l Lana Cunhaann 2020-12-24 2020-12-24 Outpatient GOSIA GarciaSCHANJEL MHMISCHER [id number] 13:45:00 23:59:59 Jeffrey 10 [place] 2020-12-24 2020-12-24 Outpatient MHIE PRUDENCIOIE [id number] Memoria 13:45:00 13:45:00 10 l Raul 2020-12-09 2020-12-09 Outpatient STLMLC STLMLC [id number] Common 00:00:00 00:00:00 [facility] 2020-12-09 2020-12-09 Outpatient STLMLC STLMLC [id number] Common 00:00:00 00:00:00 [facility] 2020-11-30 2020-11-30 Outpatient STLMLC STLMLC [id number] Common 00:00:00 00:00:00 [facility] 2020-11-23 2020-11-25 Outside nullFlavo MNA [id number] Memoria 17:49:36 05:59:59 Medical r Neurology 00 l Records Lana Carter 2020-11-23 2020-11-24 Outpatient MHMISCHER MHMISCHER [id number] 11:49:36 23:59:59 00 2020-10-28 2020-10-28 Outpatient STLMLC STLMLC [id number] Common 00:00:00 00:00:00 [facility] 2020-10-25 2020-10-25 Outpatient STLMLC STLMLC [id number] Common 00:00:00 00:00:00 [facility] 2020-10-11 2020-10-11 Ambulatory nullFlavo MNA [id number] Memoria 21:15:00 21:15:00 Pre-Reg r Neurology 09 l [place] 2020-10-11 2020-10-11 Outpatient MHIE MHIE [id number] Memoria 15:15:00 15:15:00 09 lavelle Raul 2020-10-11 2020-10-11 Outpatient PRUDENCIO GarciaMISCHER MHMISCHER [id number] 15:15:00 15:15:00 Jeffrey 09 [facility] 2020-09-29 2020-09-29 Outpatient STLMLC STLMLC [id number] Common 00:00:00 00:00:00 [facility] 2020-09-05 2020-09-06 Observatio nullFlavo [facility] [id number] Memoria 02:36:00 21:43:00 sherif Carter 40 [facility] 2020-09-04 2020-09-06 Outpatient Nae [facility] [id number] 20:36:00 15:43:00 Vincent Alarcon Chu 2020-09-04 2020-09-04 Outpatient Nae [facility] [id number] 20:36:00 20:36:00 Vincent Alarcon Chu 2020-08-24 2020-08-24 Ambulatory nullFlavo MNA [id number] Memoria 19:15:00 19:15:00 Pre-Reg r Neurology 08 l [place] Ra[place] 2020-08-24 2020-08-24 Outpatient MHIE MHIE [id number] Memoria 13:15:00 13:15:00 08 lavelle Carter 2020-08-24 2020-08-24 Outpatient PRUDENCIO GarciaMISCHER MHMISCHER [id number] 13:15:00 13:15:00 Jeffrey 08 [facility] 2020-06-28 2020-06-28 Emergency [facility] [id number] 11:51:00 15:02:00 Sariah Gutierrez 350.1.13.10 [place] 4.2.7.2.686 [place] [id number] [facility] 2020-06-28 2020-06-28 Emergency [facility] [id number] [facility] 11:51:00 15:02:00 Sariah Gutierrez 350.1.13.10 i ty of [place] 4.2.7.2.686 [facility] [id number] [address] 2020-05-25 2020-05-26 Outpatient nullFlavo MNA [id number] Memoria 18:45:00 04:59:59 r Neurology 07 l [place] 2020-05-25 2020-05-25 Outpatient Jose MHMISCHER MHMISCHER [id number] 13:45:00 23:59:59 Jeffrey 07 [place] 2020-05-25 2020-05-25 Outpatient MHIE MHIE [id number] Memoria 13:45:00 13:45:00 07 l [place] 2020-03-30 2020-03-30 Ambulatory nullFlavo MNA [id number] Memoria 20:15:00 20:15:00 Pre-Reg r Neurology 05 l [place] 2020-03-30 2020-03-30 Outpatient MHIE MHIE [id number] Memoria 15:15:00 15:15:00 05 l [place] 2020-03-30 2020-03-30 Outpatient PRUDENCIO GarciaMISCHER MHMISCHER [id number] 15:15:00 15:15:00 Jeffrey 05 [facility] 2020-03-24 2020-03-25 Outpatient nullFlavo MNA [id number] Memoria 14:00:00 04:59:59 r Neurology 06 l [place] 2020-03-24 2020-03-24 Outpatient Jose MHMISCHER MHMISCHER [id number] 09:00:00 23:59:59 Jeffrey 06 [facility] 2020-03-24 2020-03-24 Outpatient MHIE MHIE [id number] Memoria 09:00:00 09:00:00 06 l Raul 2020-02-19 2020-02-19 [facility] [id number] 14:18:56 16:04:00 Maria Luisa Gutierrez 350.1.13.10 [place] 4.2.7.2.686 [place] [id number] [facility] 2020-02-19 2020-02-19 Emergency [facility] [id number] Univers 14:18:56 16:04:00 Maria Luisa Gutierrez 350.1.13.10 ity of [place] 4.2.7.2.686 [facility] [id number] [address] 2019-12-11 2019-12-11 Outpatient Olivia-Mbayo VFP VFP [id number] [facility] 06:48:00 06:48:00 _A_AH [id number] Family Practic e 2019-12-11 2019-12-11 Outpatient Olivia-Mbayo VFP VFP [address] [place] [address] 06:48:00 06:48:00 _A_AH [id number] Family Practic e 2019-12-09 2019-12-10 Emergency [facility] [id number] 21:28:34 00:05:00 Timi Gutierrez 350.1.13.10 [place] 4.2.7.2.6 [place] [id number] [facility] 2019-12-09 2019-12-10 Emergency [facility] [id number] Univers 21:28:34 00:05:00 Timi Gutierrez 350.1.13.10 i ty of [place] [address].7[address] [place] [id number] 2019-12-09 2019-12-10 Emergency X [facility] ERT [id number] Univers 21:28:34 00:05:00 TIMI ity of [facility] 2019-11-19 2019-11-19 Outpatient Olivia-Mbayo VFP P [address] [place] [address] 07:16:00 07:16:00 _A_AH [id number] Family Practic e 2019-09-16 2019-09-16 Ambulatory nullFlavo MNA [id number] Memoria 21:00:00 21:00:00 Pre-Reg r Neurology 04 l Lana Carter 2019-09-16 2019-09-16 Outpatient MHIE MHIE [id number] Memoria 15:00:00 15:00:00 04 lavelle Carter 2019-09-16 2019-09-16 Outpatient SahiletaPRUDENCIOSAMSCHER MISCHER [id number] 15:00:00 15:00:00 Jeffrey 04 [place] 2019-07-24 2019-07-25 Outpatient nullFlavo MNA [id number] Memoria 19:15:00 04:59:59 r Neurology 03 lavelle Schwartz Ra[place] 2019-07-24 2019-07-24 Outpatient Jose PRUDENCIOSAMSCHER MISCHER [id number] 14:15:00 23:59:59 Jeffrey 03 [place] 2019-07-24 2019-07-24 Outpatient MHIE MHIE [id number] Memoria 14:15:00 14:15:00 03 lavelle Carter 2019-05-21 2019-05-22 Outpatient nullFlavo MNA [id number] Memoria 19:30:00 04:59:59 r Neurology 02 lavelle [place] 2019-05-21 2019-05-21 Outpatient GOSIA GarciaSCHER MISCHER [id number] 14:30:00 23:59:59 Jeffrey 02 [place] 2019-05-21 2019-05-21 Outpatient MHIE MHIE [id number] Memoria 14:30:00 14:30:00 02 lavelle Raul 2019-03-21 2019-03-22 Outpatient nullFlavo MNA [id number] Memoria 19:30:00 04:59:59 r Neurology 01 lavelle Schwartz Raul 2019-03-21 2019-03-21 Outpatient [facility]UD[id number] 14:30:00 23:59:59 Jeffrey Hollis 2019-03-21 2019-03-21 Outpatient MHIE MHIE [id number] Memoria 14:30:00 14:30:00 01 lavelle [place] 2019-02-21 2019-02-22 Outpatient nullFlavo MNA [id number] Memoria 20:00:00 04:59:59 r Neurology 00 lavelle Schwartz [place] 2019-02-21 2019-02-21 Outpatient PRUDENCIO GarciaSAMSCHER MISCHER [id number] 15:00:00 23:59:59 Jeffrey 00 [place] Results Test Description Test Time Test Comments Results Result Comments Source CHEM PANEL 2020-09-06 10:24:00 Test Item Value Reference Range Interpretation Comme nts Glucose Lvl (test code = Glucose Lvl) 66 70-99 [facility]2020-12-07 10:24:00 Test Item Value Reference Range Interpretation Comments BUN (test code = BUN) 19 7-22 [facility]2020-12-07 10:24:00 Test Item Value Reference Range Interpretation Comments Creatinine Lvl (test code = Creatinine 1.82 0.50-1.40 Lvl) [facility]2020-12-07 10:24:00 Test Item Value Reference Range Interpretation Comments Sodium Lvl (test code = Sodium Lvl) 139 135-145 [facility] [id number] 10:24:00 Test Item Value Reference Range Interpretation Comments Potassium Lvl (test code = Potassium 4.2 3.5-5.1 Lvl) [facility] [id number] 10:24:00 Test Item Value Reference Range Interpretation Comments Chloride Lvl (test code = Chloride Lvl) 105 95-109 [facility] [id number] 10:24:00 Test Item Value Reference Range Interpretation Comments CO2 (test code = CO2) 28 24-32 [facility] [id number] 10:24:00 Test Item Value Reference Range Interpretation Comments Calcium Lvl (test code = Calcium Lvl) 8.2 8.5-10.5 [facility] [id number] 10:24:00 Test Item Value Reference Range Interpretation Comments AGAP (test code = AGAP) 10.2 10.0-20.0 [facility]2020-12-07 10:24:00 Test Item Value Reference Range Interpretation Comments eGFR (test code = eGFR) 26 [facility]VpwxndlGEETIKSLFA0248-16-40 10:24:00 Test Item Value Reference Range Interpretation Comments Segs (test code = Segs) 70.6 45.0-75.0 [facility] DallasUlluhjdHBOYSQJGQH8555-74-92 10:24:00 Test Item Value Reference Range Interpretation Comments Lymphocytes (test code = Lymphocytes) 13.2 20.0-40.0 [facility] DallasVhpjtuyYFPGFDCIXT3416-11-60 10:24:00 Test Item Value Reference Range Interpretation Comments Monocytes (test code = Monocytes) 10.9 2.0-12.0 [facility] DallasLljbipoEMEGKJNJYA9569-65-64 10:24:00 Test Item Value Reference Range Interpretation Comments Eosinophils (test code = 4.6 See_Comment [A utomated message] The Eosinophils) system which ge nerated this result tra nsmitted reference range : <=4.0. The reference r christiano was not used to int erpret this result as normal/abnormal . [facility] DallasNovhfsoPTFNNQSRWN9038-70-09 10:24:00 Test Item Value Reference Range Interpretation Comments Basophils (test code = 0.7 See_Comment [Aut omated message] The Basophils) system which ge nerated this result tra nsmitted reference range : <=1.0. The reference r christiano was not used to int erpret this result as normal/abnormal . [facility] DallasChrhahlDIXZDQSDYA2872-12-20 10:24:00 Test Item Value Reference Range Interpretation Comments Neutrophils # (test code = Neutrophils 5.3 1.5-8.1 #) [facility] DallasTwlocojIQPEENAFWF1942 10:24:00 Test Item Value Reference Range Interpretation Comments Lymphocytes # (test code = Lymphocytes 1.0 1.0-5.5 #) [facility] DallasCtidaueZPGWHFWPWI2782-73-13 10:24:00 Test Item Value Reference Range Interpretation Comments Monocytes # (test code 0.8 See_Comment [Aut omated message] The = Monocytes #) system which generated this result tra nsmitted reference range : <=0.8. The reference r christiano was not used to int erpret this result as normal/abnormal . [facility] DallasYrocprfLHHMMEHKYO7773-23-17 10:24:00 Test Item Value Reference Range Interpretation Comments Eosinophils # (test code 0.3 See_Comment [A utomated message] The = Eosinophils #) system whic h generated this result tra nsmitted reference range : <=0.5. The reference r christiano was not used to int erpret this result as normal/abnormal . [facility] DallasZqxjvmfZHMPDEFPAO6276-77-72 10:24:00 Test Item Value Reference Range Interpretation Comments Basophils # (test code 0.1 See_Comment [Aut omated message] The = Basophils #) system which generated this result tra nsmitted reference range : <=0.2. The reference r christiano was not used to int erpret this result as normal/abnormal . [address] [address]-12-07 10:24:00 Test Item Value Reference Range Interpretation Comments WBC (test code = WBC) 7.5 3.7-10.4 [facility] DallasCehskgcGNWOQPXWSF7073-68-04 10:24:00 Test Item Value Reference Range Interpretation Comments RBC (test code = RBC) 3.85 4.20-5.40 [facility] DallasBgfftheVIPEDMKWQC1589-45-27 10:24:00 Test Item Value Reference Range Interpretation Comments Hgb (test code = Hgb) 10.6 12.0-16.0 [facility] DallasXzatcevZJLUIOTRIF6378-70-16 10:24:00 Test Item Value Reference Range Interpretation Comments Hct (test code = Hct) 32.1 36.0-48.0 [facility] DallasNyntuwuDFFYRVAWEN6635-50-31 10:24:00 Test Item Value Reference Range Interpretation Comments MCV (test code = MCV) 83.5 80.0-98.0 [facility] DallasNnmigleWCLSKEQDQO3708-34-26 10:24:00 Test Item Value Reference Range Interpretation Comments MCH (test code = MCH) 27.7 pg 27.0-31.0 [facility] DallasBphhpvoWTYSDXQVBF8556-98-14 10:24:00 Test Item Value Reference Range Interpretation Comments MCHC (test code = MCHC) 33.1 32.0-36.0 [facility] DallasGljrtgoVTKIBDAFQM8303-11-58 10:24:00 Test Item Value Reference Range Interpretation Comments RDW (test code = RDW) 16.8 11.5-14.5 [facility] DallasKutepouTSIPJXOICS6083-14-06 10:24:00 Test Item Value Reference Range Interpretation Comments Platelet (test code = Platelet) 185 133-450 [facility] DallasEmumsaoWHQZCBIUTI4406-97-32 10:24:00 Test Item Value Reference Range Interpretation Comments MPV (test code = MPV) 8.4 7.4-10.4 [facility]2020-12-06 09:53:13 Test Item Value Reference Range Interpretation Comments Magnesium Lvl (test code = Magnesium 2.2 1.8-2.4 Lvl) [place] [place]-06 09:53:13 Test Item Value Reference Range Interpretation Comments Phosphorus (test code = Phosphorus) 2.9 2.5-4.5 [facility]2020-12-06 09:53:13 Test Item Value Reference Range Interpretation Comments Glucose Lvl (test code = Glucose Lvl) 102 70-99 [place] [address]-12-06 09:53:13 Test Item Value Reference Range Interpretation Comments BUN (test code = BUN) 17 7-22 [place] [address]-12-06 09:53:13 Test Item Value Reference Range Interpretation Comments Creatinine Lvl (test code = Creatinine 1.51 0.50-1.40 Lvl) [place] [address]-12-06 09:53:13 Test Item Value Reference Range Interpretation Comments Sodium Lvl (test code = Sodium Lvl) 140 135-[address]12-06 09:53:13 Test Item Value Reference Range Interpretation Comments Potassium Lvl (test code = Potassium 3.5 3.5-5.1 Lvl) [place] [address]-12-06 09:53:13 Test Item Value Reference Range Interpretation Comments Chloride Lvl (test code = Chloride Lvl) 106 95-109 [place] [address]-12-06 09:53:13 Test Item Value Reference Range Interpretation Comments CO2 (test code = CO2) 29 24-32 [place] [address]-12-06 09:53:13 Test Item Value Reference Range Interpretation Comments Calcium Lvl (test code = Calcium Lvl) 8.3 8.5-10.5 [place] 115570-12-06 09:53:13 Test Item Value Reference Range Interpretation Comments AGAP (test code = AGAP) 8.5 10.0-20.0 [place] [address]-12-06 09:53:13 Test Item Value Reference Range Interpretation Comments eGFR (test code = eGFR) 33 [place] [address]-12-06 09:53:13 Test Item Value Reference Range Interpretation Comments WBC (test code = WBC) 8.7 3.7-10.4 [place] [address]-12-06 09:53:13 Test Item Value Reference Range Interpretation Comments RBC (test code = RBC) 3.96 4.20-5.40 [place] [address]-12-06 09:53:13 Test Item Value Reference Range Interpretation Comments Hgb (test code = Hgb) 10.7 12.0-16.0 [place] [address]-12-06 09:53:13 Test Item Value Reference Range Interpretation Comments Hct (test code = Hct) 32.8 36.0-48.0 [place] [address]-12-06 09:53:13 Test Item Value Reference Range Interpretation Comments MCV (test code = MCV) 83.0 80.0-98.0 [place] [address]-12-06 09:53:13 Test Item Value Reference Range Interpretation Comments MCH (test code = MCH) 26.9 pg 27.0-31.0 [place] [address]-12-06 09:53:13 Test Item Value Reference Range Interpretation Comments MCHC (test code = MCHC) 32.4 32.0-36.0 [place] [address]-12-06 09:53:13 Test Item Value Reference Range Interpretation Comments RDW (test code = RDW) 16.5 11.5-14.[address]12-06 09:53:13 Test Item Value Reference Range Interpretation Comments Platelet (test code = Platelet) 157 133-450 [place] [address]-12-06 09:53:13 Test Item Value Reference Range Interpretation Comments MPV (test code = MPV) 7.5 7.4-10.4 [place] [address]-12-06 09:53:13 Test Item Value Reference Range Interpretation Comments Neutrophils # (test code = Neutrophils 7.2 1.5-8.1 #) [place] [address]-12-06 09:53:13 Test Item Value Reference Range Interpretation Comments Lymphocytes # (test code = Lymphocytes 0.9 1.0-5.5 #) [place] [address]-12-06 09:53:13 Test Item Value Reference Range Interpretation Comments Monocytes # (test code 0.5 See_Comment [Aut omated message] The = Monocytes #) system which generated this result tra nsmitted reference range : <=0.8. The reference r christiano was not used to int erpret this result as normal/abnormal . [place] [address]-12-06 09:53:13 Test Item Value Reference Range Interpretation Comments Basophils # (test code 0.1 See_Comment [Aut omated message] The = Basophils #) system which generated this result tra nsmitted reference range : <=0.2. The reference r hcristiano was not used to int erpret this result as normal/abnormal . [facility]:53:13 Test Item Value Reference Range Interpretation Comments Segs (test code = Segs) 83.0 45.0-75.0 [facility] DallasHtmfiozNNIFIILCWV4260-26-53 09:53:13 Test Item Value Reference Range Interpretation Comments Bands (test code = 0.0 See_Comment [Automat ed message] The Bands) system which ge nerated this result transmit sheba reference range : <=11.0. The reference r christiano was not used to interpr et this result as edy l/abnormal. [facility] DallasUpapfniUSQWIAMJHP1676-72-51 09:53:13 Test Item Value Reference Range Interpretation Comments Lymphocytes (test code = Lymphocytes) 10.0 20.0-40.0 [facility] DallasNspooshMVAGLCTPHS6846-70-48 09:53:13 Test Item Value Reference Range Interpretation Comments Monocytes (test code = Monocytes) 6.0 2.0-12.0 [facility] DallasFvqkbrdLDKBWBILVA5454-33-03 09:53:13 Test Item Value Reference Range Interpretation Comments Basophils (test code = 1.0 See_Comment [Aut omated message] The Basophils) system which ge nerated this result tra nsmitted reference range : <=1.0. The reference r christiano was not used to int erpret this result as normal/abnormal . [facility] DallasInyeuysOOOTSTJCEA1627-98-46 09:53:13 Test Item Value Reference Range Interpretation Comments Atypical Lymphs (test code = Atypical 0.0 Lymphs) [facility] DallasPpnjdvvEAXEIWKOAE1957-52-38 09:53:13 Test Item Value Reference Range Interpretation Comments RBC Morph (test code = Normal (09/05/20 3:53 RBC Morph) AM) [facility] DallasEszcacsDVJCBPXGRI4040-19-30 09:53:13 Test Item Value Reference Range Interpretation Comments Plt Morph (test code = Normal (09/05/20 3:53 Plt Morph) AM) [facility]SlrgvtbYZMFXCPNDZ4210-95-88 09:53:00 Test Item Value Reference Range Interpretation Comments Coronavirus (COVID-19) Not Detected (09/05/20 JONATHAN (test code = 3:53 AM) Coronavirus (COVID-19) JONATHAN) [facility]CARDIAC CZYWTDI3536-30-86 04:34:00 Test Item Value Reference Range Interpretation Comments Troponin-I (test code no gt See_Comment [Auto mated message] The = Troponin-I) system which g enerated this result transmit sheba reference range : <=0.40. The reference r christiano was not used to interpr et this result as edy l/abnormal. [facility]2020-12-06 04:34:00 Test Item Value Reference Range Interpretation Comments Glucose Lvl (test code = Glucose Lvl) 125 70-99 [facility]2020-12-06 04:34:00 Test Item Value Reference Range Interpretation Comments BUN (test code = BUN) 17 7-22 [place] 115570-12-06 04:34:00 Test Item Value Reference Range Interpretation Comments Creatinine Lvl (test code = Creatinine 1.51 0.50-1.40 Lvl) [facility]2020-12-06 04:34:00 Test Item Value Reference Range Interpretation Comments Sodium Lvl (test code = Sodium Lvl) 142 135-145 [facility]2020-12-06 04:34:00 Test Item Value Reference Range Interpretation Comments Potassium Lvl (test code = Potassium 4.0 3.5-5.1 Lvl) [facility]2020-12-06 04:34:00 Test Item Value Reference Range Interpretation Comments Chloride Lvl (test code = Chloride Lvl) 108 95-109 [facility]2020-12-06 04:34:00 Test Item Value Reference Range Interpretation Comments CO2 (test code = CO2) 30 24-32 [facility]2020-12-06 04:34:00 Test Item Value Reference Range Interpretation Comments Calcium Lvl (test code = Calcium Lvl) 7.8 8.5-10.5 [facility]2020-12-06 04:34:00 Test Item Value Reference Range Interpretation Comments AGAP (test code = AGAP) 8.0 10.0-20.0 [facility]2020-12-06 04:34:00 Test Item Value Reference Range Interpretation Comments eGFR (test code = eGFR) [facility]42 04:34:00 Test Item Value Reference Range Interpretation Comments WBC X 10x3 (test code = WBC X 10x3) 9.7 3.7-10.4 [facility] DallasYjppdncIKHHYZQJAK4467-47-73 04:34:00 Test Item Value Reference Range Interpretation Comments RBC X 10x6 (test code = RBC X 10x6) 3.96 4.20-5.40 [facility] DallasGqbqapmJYKEYKVZXT6964-56-72 04:34:00 Test Item Value Reference Range Interpretation Comments Hgb (test code = Hgb) 10.6 12.0-16.0 [facility] DallasIqchjtvNMTSMFKEUP6566-69-05 04:34:00 Test Item Value Reference Range Interpretation Comments Hct (test code = Hct) 32.6 36.0-48.0 [facility] DallasWyrrtnmPANHFRQWKI7898-21-40 04:34:00 Test Item Value Reference Range Interpretation Comments MCV (test code = MCV) 82.3 80.0-98.0 [facility] DallasKtfibcxPKQUXIDOOQ8408-71-43 04:34:00 Test Item Value Reference Range Interpretation Comments MCH (test code = MCH) 26.6 pg 27.0-31.0 [facility] DallasFkvzisoRVIYVOSVBG8502-16-31 04:34:00 Test Item Value Reference Range Interpretation Comments MCHC (test code = MCHC) 32.4 32.0-36.0 [facility] DallasZrapeghHWBWSCXCTS5978-66-66 04:34:00 Test Item Value Reference Range Interpretation Comments RDW (test code = RDW) 16.8 11.5-14.5 [facility] DallasRqwkuibBEAYHFDSBF3239-49-86 04:34:00 Test Item Value Reference Range Interpretation Comments Platelet (test code = Platelet) 178 133-450 [facility] DallasIkubpqqFDAYFIMQYL3521-91-15 04:34:00 Test Item Value Reference Range Interpretation Comments MPV (test code = MPV) 8.0 7.4-10.4 [facility] DallasPzyqgybOPFIYJSFOD7721-77-41 04:34:00 Test Item Value Reference Range Interpretation Comments PT (test code = PT) 14.7 s 12.0-14.7 [facility] DallasIxydmwrNKTXAZDGGE7939-69-93 04:34:00 Test Item Value Reference Range Interpretation Comments INR (test code = INR) 1.14 1 0.85-1.17 [facility] DallasKepdmfaVHSNISRCSZ6086-42-94 04:34:00 Test Item Value Reference Range Interpretation Comments PTT (test code = PTT) 31.2 s 22.9-35.8 [place] [address]-12-06 04:34:00 Test Item Value Reference Range Interpretation Comments Segs (test code = Segs) 73.9 45.0-75.0 [place] [address]-12-06 04:34:00 Test Item Value Reference Range Interpretation Comments Lymphocytes (test code = Lymphocytes) 11.0 20.0-40.0 [place] [address]-12-06 04:34:00 Test Item Value Reference Range Interpretation Comments Monocytes (test code = Monocytes) 13.6 2.0-12.0 [place] [address]-12-06 04:34:00 Test Item Value Reference Range Interpretation Comments Eosinophils (test code = 0.7 See_Comment [A utomated message] The Eosinophils) system which ge nerated this result tra nsmitted reference range : <=4.0. The reference r christiano was not used to int erpret this result as normal/abnormal . [place] [address]-12-06 04:34:00 Test Item Value Reference Range Interpretation Comments Basophils (test code = 0.8 See_Comment [Aut omated message] The Basophils) system which ge nerated this result tra nsmitted reference range : <=1.0. The reference r christiano was not used to int erpret this result as normal/abnormal . [place] 215900-12-06 04:34:00 Test Item Value Reference Range Interpretation Comments Neutrophils # (test code = Neutrophils 7.2 1.5-8.1 #) [place] 215900-12-06 04:34:00 Test Item Value Reference Range Interpretation Comments Lymphocytes # (test code = Lymphocytes 1.1 1.0-5.5 #) [place] [address]-12-06 04:34:00 Test Item Value Reference Range Interpretation Comments Monocytes # (test code 1.3 See_Comment [Aut omated message] The = Monocytes #) system which generated this result tra nsmitted reference range : <=0.8. The reference r christiano was not used to int erpret this result as normal/abnormal . [place] [address]-12-06 04:34:00 Test Item Value Reference Range Interpretation Comments Eosinophils # (test code 0.1 See_Comment [A utomated message] The = Eosinophils #) system whic h generated this result tra nsmitted reference range : <=0.5. The reference r christiano was not used to int erpret this result as normal/abnormal . [facility] FadpffjIYXUIPIWOJ6188-83-52 04:34:00 Test Item Value Reference Range Interpretation Comments Basophils # (test code 0.1 See_Comment [Aut omated message] The = Basophils #) system which generated this result tra nsmitted reference range : <=0.2. The reference r christiano was not used to int erpret this result as normal/abnormal . [facility] SHOULDER 2+ VW FRQUI6758-59-60 17:54:27 Comminuted distal clavicle fracture. EXAM: XR SHOULDER 2+ VW RIGHT HISTORY: shoulder pain COMPARISON: None. FINDINGS: A comminuted fracture of the distal clavicle is seen. There is resultantmild widening of the acromioclavicular joint. Alignment is maintained atthe glenohumeral joint which exhibits osteoarthritic changes manifested byjoint space narrowing and osteophytosis. Osteopenia is suggested.At herosclerotic calcifications are present in the aortic arch. [facility], Radiant Results Inft User - 06/28/2020 12:55 PM CDTEXAM:XR SHOULDER 2+ VW RIGHTHISTORY:shoulder pain COMPARISON:None.FINDINGS: A comminuted fracture of the distal clavicle is seen. There is resultantmild widening of the acromioclavicular joint. Alignment is maintained atthe glenohumeral joint which exhibits osteoarthritic changes manifested byjoint space narrowing and osteophytosis. Osteopenia is suggested.Atherosclerotic calcifications are present in the aortic arch.IMPRESSIONComminuted distal clavicle fracture. [facility] [id number] 17:53:09 No acute bony abnormality. EXAM: XR FOREARM 2 VW RIGHT HISTORY: right arm pain COMPARISON: None. FINDINGS: Osteopenia is noted. 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 Mild osteoarthritic changes are present at theelbow. No acute fracture or dislocation is seen. [facility], Radiant Results Inft User - 06/28/2020 12:54 PM CDTEXAM:XR FOREARM 2 VW RIGHTHISTORY:right arm pain COMPARISON:None.FINDINGS: Osteopenia is noted. 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 Mild osteoarthritic changes are present at theelbow. No acute fracture or dislocation is seen.IMPRESSIONNo acute bony abnormality.[facility]
--- NOTE | 2022-07-27 18:10 | RAD REPORT ---
EXAM DESCRIPTION: CT - CTHCSPWOC - 07/27/2022 5:53 pm CLINICAL HISTORY: Trauma, head and neck injury. FALL COMPARISON: Head C Spine Mpr Wo Con dated 09/04/2020; Soft Tissue Neck W/Contr dated 09/05/2016 TECHNIQUE: Axial 5 mm thick images of the head were obtained. Axial 2 mm thick images of the cervical spine were obtained with sagittal and coronal reconstruction images generated and reviewed. All CT scans are performed using dose optimization technique as appropriate and may include automated exposure control or mA/KV adjustment according to patient size. FINDINGS: CT HEAD WITHOUT CONTRAST: No acute hemorrhage, hydrocephalus or extra-axial collection is identified.Mild generalized brain atr ophy is present with mild periventricular and deep white matter chronic microvascular ischemic change s.No areas of brain edema or midline shift. The paranasal sinuses and mastoids are clear.The calvarium is intact. Small left frontal scalp hemato ma. Bilateral vertebral atherosclerotic change. CT CERVICAL SPINE WITHOUT CONTRAST: No fracture or subluxation.Moderate multilevel lower cervical degenerative changes present.No prevert ebral soft tissues swelling is identified. IMPRESSION: No acute intracranial or cervical spine findings.
--- NOTE | 2022-07-27 18:25 | ER ---
Nurse's Notes [facility] Name: Radha Bentley Age: 81 yrs Sex: Female : 1940 Arrival Date: 07/27/2022 Time: 17:08 Bed 7 Private MD: Diagnosis: Fall on same level, unspecified;Contusion of knee;Unspecified injury of head, initial encounter Presentation: 07/27 17:09 Chief complaint: Patient states: Tripped and fell over her dog, striking her left kb3 forehead on a tile floor at approximately 1600 today. Denies LOC, dizziness, N/V. States 5/10 pain to left forehead. Care prior to arrival: None. Mechanism of Injury: Fall from standing position. Trauma event details: Injury occurred in the [facility], Injury occurred: at home. Injury occurred: July 27, 2022 Injury occurred at: 16:00. 17:09 Acuity: VAIBHAV 3 kb3 17:09 Method Of Arrival: EMS: [facility] kb3 17:13 Coronavirus screen: Vaccine status: Patient reports receiving the 2nd dose of the covid kb3 vaccine. Client denies travel out of the [place] in the last 14 days. Ebola Screen: Patient negative for fever greater than or equal to 101.5 degrees Fahrenheit, and additional compatible Ebola Virus Disease symptoms Patient denies exposure to infectious person. Patient denies travel to an Ebola-affected area in the 21 days before illness onset. No symptoms or risks identified at this time. Initial Sepsis Screen: Does the patient meet any 2 criteria? No. Patient's initial sepsis screen is negative. Does the patient have a suspected source of infection? No. Patient's initial sepsis screen is negative. Risk Assessment: Do you want to hurt yourself or someone else? Patient reports no desire to harm self or others. Onset of symptoms was July 27, 2022 at 16:00. Historical: - Allergies: 17:14 Avelox; kb3 17:14 Band-aid adhesive; kb3 - Home Meds: 17:14 Amlodipine [Active]; bupropion HCl Oral [Active]; escitalopram oxalate Oral [Active]; kb3 gabapentin Oral [Active]; Lasix Oral [Active]; - PMHx: 17:14 ADD/ADHD; COPD; Heart Murmur; Hyperlipidemia; Hypertension; Hypothyroidism; kb3 - PSHx: 17:14 Bilateral knee replacement; Cholecystectomy; Breast reduction; Shoulder replacment; kb3 - Immunization history: Last tetanus immunization: - up to date. - Social history:: Smoking status: Patient denies any tobacco usage or history of. Screenin:09 Abuse screen: Denies threats or abuse. Denies injuries from another. Tuberculosis kb3 screening: No symptoms or risk factors identified. 18:45 Fall Risk None identified. mb9 18:46 Nutritional screening: No deficits noted. mb9 Primary Survey: 17:09 NO uncontrolled hemorrhage observed. A: The client is awake and alert. The airway is kb3 patent. Breathing/Chest: Spontaneous respiratory effort, equal unlabored respirations, breath sounds clear bilaterally, regular pattern, symmetrical chest rise and fall. Circulation: No external hemorrhage present. Regular and strong central pulse, skin warm/dry/normal color. Disability Client is alert. Exposure/Environment: There is no evidence of uncontrolled external bleeding. Reassessment Alertness and Airway: Awake and alert. The airway is patent. Breathing: Spontaneous respiratory effort, equal unlabored respirations, breath sounds clear bilaterally, regular pattern with symmetrical chest rise and fall. Circulation: No external hemorrhage noted. Regular and strong central pulse, skin warm/dry/normal color. Disability: Alert. Assessment: 17:09 General: Appears in no apparent distress. Behavior is calm, cooperative. Pain: kb3 Complains of pain in forehead Pain does not radiate. Pain currently is 5 out of 10 on a pain scale. Quality of pain is described as aching, Pain began 1 hour ago. Neuro: No deficits noted. Reports headache in left frontal area. 17:10 General: Appears in no apparent distress. comfortable, Behavior is calm, cooperative, mb9 appropriate for age. Pain: Complains of pain in head Pain currently is 6 out of 10 on a pain scale. Quality of pain is described as throbbing. Neuro: Level of Consciousness is awake, alert, obeys commands, Oriented to person, place, time, situation, Appropriate for age Tool Crib Attendant are equal bilaterally Full function Gait is steady, Speech is normal, Pupils are PERRLA, Reports headache in left frontal area, Denies blurred vision dizziness. Cardiovascular: Heart tones S1 S2 present Rhythm is regular. Respiratory: Airway is patent Respiratory effort is even, unlabored, Respiratory pattern is regular, symmetrical, Breath sounds are clear bilaterally. GI: No signs and/or symptoms were reported involving the gastrointestinal system. GI: No signs and/or symptoms were reported involving the gastrointestinal system. : No signs and/or symptoms were reported regarding the genitourinary system. EENT: No signs and/or symptoms were reported regarding the EENT system. Derm: Skin is pink, warm \T\ dry. Bruising that is dark purple, and swollen on left side of forehead. skin tear on right wrist. 17:10 Musculoskeletal: Range of motion: intact in all extremities. mb9 18:13 Reassessment: pt taken to bathroom via wheelchair. mb9 18:13 General: Appears in no apparent distress. comfortable. Neuro: Level of Consciousness is mb9 awake, alert, obeys commands, Oriented to person, place, time, situation, Appropriate for age Reports headache. Cardiovascular: Heart tones S1 S2 present. Respiratory: Airway is patent Respiratory effort is even, unlabored, Respiratory pattern is regular, symmetrical. Derm: Skin is pink, warm \T\ dry. Bruising that is dark purple, on left side of forehead. Vital Signs: 17:09 BP 158 / 66; Pulse 56; Resp 18; Pulse Ox 100% ; Weight 85.28 kg; Height 4 ft. 11 in. kb3 (149.86 cm); Pain 5/10; 17:09 Body Mass Index 37.97 (85.28 kg, 149.86 cm) kb3 [place] Coma Score: 17:09 Eye Response: spontaneous(4). Verbal Response: oriented(5). Motor Response: obeys kb3 commands(6). Total: 15. 17:34 Eye Response: spontaneous(4). Verbal Response: oriented(5). Motor Response: obeys art commands(6). Total: 15. Trauma Score (Adult): 17:09 Eye Response: spontaneous(1); Verbal Response: oriented(1); Motor Response: obeys kb3 commands(2); Systolic BP: > 89 mm Hg(4); Respiratory Rate: 10 to 29 per min(4); Olga Score: 15; Trauma Score: 12 NIH Stroke Scale Scores: 17:29 NIHSS Score: 0 art ED Course: 17:08 Patient arrived in ED. aa5 17:09 Ady Cuellar MD is Attending Physician. art 17:09 Patient has correct armband on for positive identification. Bed in low position. Call kb3 light in reach. Side rails up X2. 17:09 Patient maintains SpO2 saturation greater than 95% on room air. kb3 17:10 Mayi Arango, ALAN is Primary Nurse. mb9 17:11 Triage completed. kb3 17:14 Arm band placed on left wrist. Patient placed in an exam room, on a stretcher. kb3 17:55 CT Head C Spine In Process Unspecified. EDMS 18:23 Haim Orellana MD is Referral Physician. art 18:24 Knee Right 3 View XRAY In Process Unspecified. EDMS 18:45 No provider procedures requiring assistance completed. Patient did not have IV access mb9 during this emergency room visit. Administered Medications: No medications were administered Medication: 18:45 VIS not applicable for this client. mb9 Outcome: 18:24 Discharge ordered by . art 18:46 Discharged to home via wheelchair. mb9 18:46 Condition: stable 18:46 Discharge instructions given to patient, Instructed on discharge instructions, follow up and referral plans. Demonstrated understanding of instructions, follow-up care, medications, Prescriptions given X 1. 18:46 Patient left the ED. mb9 NIH Stroke Scale - NIH Stroke Score Date: 07/27/2022 Time: 17:29 Total Score = 0 1a. Level of Consciousness (LOC) - 0(Alert) 1b. Level of Consciousness (LOC) (Month \T\ Age) - 0(Both) 1c. LOC Commands (Open \T\ Closes Eyes/Metal Door Assembler) - 0(Both) 2. Best Gaze (Lateral Gaze Paresis) - 0(Normal) 3. Visual Field Loss - 0(No visual loss) 4. Facial Palsy - 0(Normal) 5a. Left Arm: Motor (10-second hold) - 0(No drift) 5b. Right Arm: Motor (10-second hold) - 0(No drift) 6a. Left Leg: Motor (5-second hold - always test supine) - 0(No drift) 6b. Right Leg: Motor (5-second hold - always test supine) - 0(No drift) 7. Limb Ataxia (finger/nose \T\ heel/johnson - test with eyes open) - 0(Absent) 8. Sensory Loss (pinprick arms/legs/face) - 0(Normal) 9. Best Language: Aphasia (description/naming/reading) - 0(No aphasia) 10. Dysarthria (speech clarity - read or repeat words) - 0(Normal) 11. Extinction and Inattention (visual/tactile/auditory/spatial/personal) - 0(No abnormality) Initials: art Signatures: Dispatcher [employer] Ady Phipps MD MD cha Calderon, Audri RN RN aa5 Casie Kapoor RN RN kb3 Mayi Arango, RN RN mb9 Corrections: (The following items were deleted from the chart) 17:14 17:10 Derm: Skin is pink, warm \T\ dry. Bruising that is dark purple, and swollen mb9 on left side of forehead. skin tear on right wrist mb9
--- NOTE | 2022-07-27 18:25 | EDPHYS ---
Physician Documentation [facility] Name: Radha Bentley Age: 81 yrs Sex: Female : 1940 Arrival Date: 07/27/2022 Time: 17:08 Bed 7 Private MD: ED Physician Ady Cuellar HPI: 07/27 17:27 This 81 yrs old Female presents to ER via EMS with complaints of FALL HEAD, art NECK PAIN,Fall Injury. 17:27 Details of fall: The patient fell from an upright position, while walking. Onset: The art symptoms/episode began/occurred just prior to arrival. Associated injuries: The patient sustained injury to the head, neck injury, right johnson, painful injury, swelling. Severity of symptoms: At their worst the symptoms were mild, in the emergency department the symptoms have improved, mildly. The patient has not experienced similar symptoms in the past. Historical: - Allergies: 17:14 Avelox; kb3 17:14 Band-aid adhesive; kb3 - Home Meds: 17:14 Amlodipine [Active]; bupropion HCl Oral [Active]; escitalopram oxalate Oral [Active]; kb3 gabapentin Oral [Active]; Lasix Oral [Active]; - PMHx: 17:14 ADD/ADHD; COPD; Heart Murmur; Hyperlipidemia; Hypertension; Hypothyroidism; kb3 - PSHx: 17:14 Bilateral knee replacement; Cholecystectomy; Breast reduction; Shoulder replacment; kb3 - Immunization history: Last tetanus immunization: - up to date. - Social history:: Smoking status: Patient denies any tobacco usage or history of. ROS: 17:29 Constitutional: Negative for fever, chills, and weight loss, Eyes: Negative for injury, art pain, redness, and discharge, Neck: Negative for injury, pain, and swelling, Cardiovascular: Negative for chest pain, palpitations, and edema, Respiratory: Negative for shortness of breath, cough, wheezing, and pleuritic chest pain, Abdomen/GI: Negative for abdominal pain, nausea, vomiting, diarrhea, and constipation, Back: Negative for injury and pain, : Negative for injury, bleeding, discharge, and swelling, Skin: Negative for injury, rash, and discoloration, Psych: Negative for depression, anxiety, suicide ideation, homicidal ideation, and hallucinations, Allergy/Immunology: Negative for hives, rash, and allergies, Endocrine: Negative for neck swelling, polydipsia, polyuria, polyphagia, and marked weight changes, Hematologic/Lymphatic: Negative for swollen nodes, abnormal bleeding, and unusual bruising. 17:29 ENT: Positive for 17:29 MS/extremity: Positive for pain, tenderness, of the right knee. Exam: 17:29 Constitutional: This is a well developed, well nourished patient who is awake, alert, art and in no acute distress. Head/Face: Normocephalic, atraumatic. Eyes: Pupils equal round and reactive to light, extra-ocular motions intact. Lids and lashes normal. Conjunctiva and sclera are non-icteric and not injected. Cornea within normal limits. Periorbital areas with no swelling, redness, or edema. ENT: Nares patent. No nasal discharge, no septal abnormalities noted. Tympanic membranes are normal and external auditory canals are clear. Oropharynx with no redness, swelling, or masses, exudates, or evidence of obstruction, uvula midline. Mucous membranes moist. Neck: Trachea midline, no thyromegaly or masses palpated, and no cervical lymphadenopathy. Supple, full range of motion without nuchal rigidity, or vertebral point tenderness. No Meningismus. Chest/axilla: Normal chest wall appearance and motion. Nontender with no deformity. No lesions are appreciated. Cardiovascular: Regular rate and rhythm with a normal S1 and S2. No gallops, murmurs, or rubs. Normal PMI, no JVD. No pulse deficits. Respiratory: Lungs have equal breath sounds bilaterally, clear to auscultation and percussion. No rales, rhonchi or wheezes noted. No increased work of breathing, no retractions or nasal flaring. Abdomen/GI: Soft, non-tender, with normal bowel sounds. No distension or tympany. No guarding or rebound. No evidence of tenderness throughout. Back: No spinal tenderness. No costovertebral tenderness. Full range of motion. Skin: Warm, dry with normal turgor. Normal color with no rashes, no lesions, and no evidence of cellulitis. MS/ Extremity: Pulses equal, no cyanosis. Neurovascular intact. Full, normal range of motion. Psych: Awake, alert, with orientation to person, place and time. Behavior, mood, and affect are within normal limits. 17:29 Neuro: Orientation: is normal, appropriate for stated age, no acute changes, Mentation: is normal, appropriate for stated age, no acute changes, Memory: is normal, appropriate for stated age, no acute changes, Motor: is normal, strength is normal, Sensation: is normal, no obvious gross deficits, appropriate Gait: not tested. Vital Signs: 17:09 BP 158 / 66; Pulse 56; Resp 18; Pulse Ox 100% ; Weight 85.28 kg; Height 4 ft. 11 in. kb3 (149.86 cm); Pain 5/10; 17:09 Body Mass Index 37.97 (85.28 kg, 149.86 cm) kb3 NIH Stroke Scale Scores: 17:29 NIHSS Score: 0 art [place] Coma Score: 17:09 Eye Response: spontaneous(4). Verbal Response: oriented(5). Motor Response: obeys kb3 commands(6). Total: 15. 17:34 Eye Response: spontaneous(4). Verbal Response: oriented(5). Motor Response: obeys art commands(6). Total: 15. Trauma Score (Adult): 17:09 Eye Response: spontaneous(1); Verbal Response: oriented(1); Motor Response: obeys kb3 commands(2); Systolic BP: > 89 mm Hg(4); Respiratory Rate: 10 to 29 per min(4); Olga Score: 15; Trauma Score: 12 MDM: 17:09 Patient medically screened. [facility] 17:34 Differential diagnosis: Contusion of Hematoma on Laceration of Intracranial bleed- [facility] Concussion cerebral contusion, closed fracture, contusion. Differential diagnosis: closed head injury, contusion, fracture, multiple trauma, sprain, strain. Data reviewed: vital signs, nurses notes, radiologic studies, CT scan, plain films. Data interpreted: weight calculator: rate is 56 beats/min, rhythm is regular. Test interpretation: by ED physician or midlevel provider: plain radiologic studies. Counseling: I had a detailed discussion with the patient and/or guardian regarding: the historical points, exam findings, and any diagnostic results supporting the discharge/admit diagnosis, radiology results. 07/27 17: Order name: Knee Right 3 View XRAY [facility] 07/27 17: Order name: CT Head C Spine; Complete Time: 18:23 [facility] 07/27 17: Order name: Ice pack; Complete Time: 17:30 art Administered Medications: No medications were administered Disposition Summary: 07/27/22 18:24 Discharge Ordered Location: Home art Problem: new art Symptoms: have improved art Condition: Stable art Diagnosis - Fall on same level, unspecified art - Contusion of knee art - Unspecified injury of head, initial encounter art Followup: art - With: Private Physician - When: 2 - 3 days - Reason: Recheck today's complaints, Continuance of care, Re-evaluation by your physician Followup: art - With: - When: 2 - 3 days - Reason: Recheck today's complaints, Continuance of care, Re-evaluation by your physician Discharge Instructions: - Discharge Summary Sheet art - Head Injury, Adult art - Fall Prevention in the Home, Adult art - Fall Prevention in the Home, Adult, [id number] art - Head Injury, Adult, [id number] art Forms: - Medication Reconciliation Form art - Thank You Letter art - Antibiotic Education art - Prescription Opioid Use [facility] Prescriptions: - Tylenol 325 mg Oral Tablet - take 2 tablets by ORAL route every 6 hours as needed; 1 bottle; Refills: 0, art Product Selection Permitted NIH Stroke Scale - NIH Stroke Score Date: 07/27/2022 Time: 17:29 Total Score = 0 1a. Level of Consciousness (LOC) - 0(Alert) 1b. Level of Consciousness (LOC) (Month \T\ Age) - 0(Both) 1c. LOC Commands (Open \T\ Closes Eyes/Chemical Packager) - 0(Both) 2. Best Gaze (Lateral Gaze Paresis) - 0(Normal) 3. Visual Field Loss - 0(No visual loss) 4. Facial Palsy - 0(Normal) 5a. Left Arm: Motor (10-second hold) - 0(No drift) 5b. Right Arm: Motor (10-second hold) - 0(No drift) 6a. Left Leg: Motor (5-second hold - always test supine) - 0(No drift) 6b. Right Leg: Motor (5-second hold - always test supine) - 0(No drift) 7. Limb Ataxia (finger/nose \T\ heel/johnson - test with eyes open) - 0(Absent) 8. Sensory Loss (pinprick arms/legs/face) - 0(Normal) 9. Best Language: Aphasia (description/naming/reading) - 0(No aphasia) 10. Dysarthria (speech clarity - read or repeat words) - 0(Normal) 11. Extinction and Inattention (visual/tactile/auditory/spatial/personal) - 0(No abnormality) Initials: art Signatures: Dispatcher [employer] Ady Phipps MD MD cha Bradberry, Kelly, RN RN kb3
--- NOTE | 2022-07-27 18:29 | RAD REPORT ---
EXAM DESCRIPTION: RAD - Knee Right 3 View - 07/27/2022 6:22 pm CLINICAL HISTORY: PAIN COMPARISON: Knee Right 3 View dated 12/01/2017 FINDINGS: Left total knee arthroplasty is noted. No hardware loosening or infection seen. No evidenc e of acute fracture.
[2022-07-27 19:35] VITALS: BP 158/66; O2SAT 100
== END 2022-07-27 18:46 | disposition home or self-care (01) ==
LOC: ER 16:56
DX: S09.90XA Unspecified injury of head, initial encounter (principal); S80.01XA Contusion of right knee, initial encounter; W18.30XA Fall on same level, unspecified, initial encounter; Z88.8 Allergy status to other drugs, medicaments and biological substances; Z91.048 Other nonmedicinal substance allergy status; Z96.653 Presence of artificial knee joint, bilateral
CPT/HCPCS: 70450; 72125; 99284

== ENCOUNTER 2022-09-20 15:23 | Inpatient (IN) | payer MEDICARE ==
[2022-09-20 16:08] LABS: SARS-CoV-2 Antigen Rapid Res Negative (Negative)
--- OUTSIDE RECORDS SUMMARY | 2022-09-20 17:52 | XMS REPORT | Continuity of Care Document ---
:1940 Author Organization [facility] t Address [address] [place] [address] Care Team Providers Name Role Phone SMILEY HOLDER Primary Care Physician Unavailable Anurag Sanderson Attending Clinician Unavailable CARLY SINCLAIR Attending Clinician Unavailable Carly Sinclair DO Attending Clinician Sunny Attending Clinician Unavailable Allegra Laura Attending Clinician Jeffrey Garcia Attending Clinician Olivia-Mbayo_A_AH Attending Clinician Unavailable Caitlyn Jerez Attending Clinician [phone] Vincent Soni Attending Clinician Miller PAC, Sariah S Attending Clinician Yocasta CLAY, Maria Luisa Mosley Attending Clinician Timi Aguirre MD Attending Clinician TIMI AGUIRRE Attending Clinician Unavailable Physician, No Primary or Family Admitting Clinician UnavailCARLY Reveles Admitting Clinician Unavailable Canales_M Admitting Clinician Unavailable Olivia-Loayo_A_AH Admitting Clinician Unavailable Vincent Soni Admitting Clinician TIMI AGUIRRE Admitting Clinician Unavailable Payers Payer Name Policy Type Policy Number Effective Date Expiration Date S kristen [employer] [place] [id number] 2019 CLASSIC/VALUE 00:00:00 DEVOTED HEALTH [id number] 2020 MEDICARE ADVANTAGE 00:00:00 PLAN DEVOTED HEALTH [id number] (MEDICARE 00:00:00 REPLACEMENT HMO) [employer] OF [place] - [id number] 2019 [place] (MEDICARE 00:00:00 REPLACEMENT/ADVANTA GE - HMO) Problems Condition Condition Condition Status Onset Resolution Last Treating Co mments Source Name Details Category Date Date Treatment Clinician Date FALL FROM FALL FROM Diagnosis Active 2019-102020-09-16 Memoria STANDING STANDING 2 21:55:00 l Active 00:00: Raul 09/04/2020 00 [facility] S/P FALL, S/P Diagnosis Active 2019-102020-09-05 Memoria FRACTURED FALL, 2 00:45:00 l RIGHT FRACTURED 00:00: Raul WRIST, RIGHT 00 HEAD HE WRIST, HEAD HE Active 09/04/2020 [facility] [id number] 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 - [facility] 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 [facility] [id number] Primary Problem Comm on osteoarthr Spirit itis, - [facility] right ankle and [facility] foot [facility] [id number] Primary Problem 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 [facility] arpal [facility] [place] right hand [id number] Acute pain Problem Com mon of right Spirit shoulder - [facility] [id number] 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 [facility] [id number] Arthritis Problem Com mon of hand [facility] - [facility] Hypertensi Hypertens Problem Active 2022-04-30 Memoria ve lyle 22:34:31 l disorder, disorder, Herm bernie systemic systemic arterial arterial (disorder) (disorder) Active Problem 04/30/2022 [facility] Hyperlipid Hyperlipi Problem Active 2022-04-30 Memoria emia demia 22:34:31 l (disorder) (disorder) He rmann Active Problem 04/30/2022 [facility] Hypothyroi Hypothyro Problem Active 2022-04-30 Memoria dism idism 22:34:31 l (disorder) (disorder) He rmann Active Problem 04/30/2022 [facility] Memory Memory Problem Active 2022-04-30 Mem oria impairment impairment 22:34:31 l (finding) (finding) Herm bernie Active Problem 04/30/2022 [facility] Morbid Morbid Problem Active 2022-04-30 Jose Francisco zhang obesity obesity 22:34:31 l (disorder) (disorder) He rmann Active Problem 04/30/2022 [facility] Recurrent Recurrent Problem Active 2022-04-30 Memoria falls falls 22:34:31 l (finding) (finding) Herm bernie Active Problem 04/30/2022 [facility] Transient Transient Problem Active 2022-04-30 Memoria ischemic ischemic 22:34:31 l attack attack Raul (disorder) (disorder) Active Problem 04/30/2022 [facility] Tremor Tremor Problem Active 2022-04-30 Jose Francisco zhang (finding) (finding) 22:34:31 l Active Raul Problem 04/30/2022 [facility] Chronic Chronic Problem Active 2022-04-30 Me moria kidney kidney 22:34:31 l disease disease [place] (disorder) (disorder) Active Problem 04/30/2022 [facility] 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 [place] disease disease (disorder) (disorder) Active Problem 04/30/2022 [facility] Depressive Problem Active 2022-04-30 M emoria disorder Depressive 22:34:31 l (disorder) disorder Herm bernie (disorder) Active Problem 04/30/2022 [facility] Essential Essential Problem Active 2022-04-30 Memoria tremor tremor 22:34:31 l (disorder) (disorder) He rmann Active Problem 04/30/2022 [facility] UNSPECIFIE UNSPECIFI Diagnosis Active 2020-09-16 Memoria D FALL, ED FALL, 21:55:00 l INITIAL INITIAL [place] ENCOUNTER ENCOUNTER Active [facility] Allergies, Adverse Reactions, Alerts Allergy Allergy Status Severity Reaction(s) Onset Inactive Treating Comm ents Source Name Type Date Date Clinician ADHESIVE DRUG Active Med Rash Univers TAPE-DEBBY 8-30 ity of ICONES 00:00: [address] MOXIFLOX DRUG Active Med Rash Univers ACIN HCL INGREDI 8-30 ity of 00:00: [address] Adhesive Propensi Active Rash Univer s Tape-Debby ty to 8-30 ity of icones adverse 00:00: [place] reaction 00 [facility] Moxiflox Propensi Active Rash Univer s acin Hcl ty to 8-30 ity of adverse 00:00: [place] reaction 00 [facility] moxiflox DA Active [facility] acin HCl 2-15 West 00:00: [address] BANDAIDS DA Active [facility] ADHESIVE 2-15 [place] 00:00: [address] Avelox Avelox Active MT^Mild Memoria l [place] Avelox Allergy Active Rash [facility] substanc Group e Social History Social Habit Start Date Stop Date Quantity Comments Source History of Common Spirit - Tobacco Use [facility] Sex Assigned At Common Sp cristian - [facility] ASSERTION [facility] Alcohol Comment Occasional [facility] Drinker [facility] Exposure to 2022-07-26 2022-08-05 Not sure [facility] SARS-CoV-2 00:00:00 12:21:00 [facility] [place] Alcohol intake 2022-08-05 2022-08-05 0 /d University of 00:00:00 00:00:00 [facility] Social History 2020-09-05 2020-09-05 Nancy najera 14:31:45 14:31:45 Tobacco use and 2020-06-28 2020-06-28 Never used Universit y of exposure 00:00:00 00:00:00 [facility] Smoking Status Start Date Stop Date Source Former Smoker 2022-07-28 00:00:00 2022-07-28 00:00:00 Common S pirit - [facility] Ce nter Never smoked tobacco [facility] Medications Ordered Filled Start Stop Current Ordering Indication Dosage Frequency Signature Comments Components Source Medication Medication Date Date Medication? Clinician (SIG) Name Name albuterol 2021-10 5mg 5 mg, Univer s (PROVENTIL) 10-05 Inhalation i ty of 2.5 mg /3 18:15: 17:40 , [place]CE, [place] (0.083 00 :00 dose, On Medica l %) [facility] nebulizer 08/05/22 at solution 5 1315, DIMITRIS mg primidone Yes 50 mg = 1 Mem oria 50 mg oral 2-02 tab, PO, l tablet 20:46: Bedtime, # Jessie nn 00 90 tab, 2 Refill(s), Pharmacy: [facility] #[id number], 149.86, cm, 11/02/21 14:32:00 AERODYNAMIC CONSULTANT, Height, 90.455, kg, 11/02/21 14:32:00 AERODYNAMIC CONSULTANT, Weight primidone 2021-0 Yes 50 mg = 1 Mem oria 50 mg oral 2-02 tab, PO, l tablet 20:46: Bedtime, # Jessie nn 00 90 tab, 2 Refill(s), Pharmacy: [facility] #[id number], 149.86, cm, 11/02/21 14:32:00 AERODYNAMIC CONSULTANT, Height, 90.455, kg, 11/02/21 14:32:00 AERODYNAMIC CONSULTANT, Weight primidone 2021-0 Yes 50 mg = 1 Mem oria 50 mg oral 2-02 tab, PO, l tablet 20:46: Bedtime, # Jessie nn 00 90 tab, 2 Refill(s), Pharmacy: [id number], 149.86, cm, 11/02/21 14:32:00 AERODYNAMIC CONSULTANT, Height, 90.455, kg, 11/02/21 14:32:00 AERODYNAMIC CONSULTANT, Weight NIFEdipine Yes TAKE 1 Memor ia (Eqv-Adalat 2-02 TABLET BY l CC) 30 mg 20:38: MOUTH Raul oral 00 EVERY DAY tablet, ON EMPTY extended STOMACH release FOR 30 DAYS Furosemide Yes TAKE 1 Memor ia 40 MG Oral 2-02 TABLET BY l Tablet 20:38: MOUTH [place] 00 EVERY DAY NEEDED FOR SWELLING tramadol Yes TAKE 1 Memoria hydrochlori 2-02 TABLET BY l de 50 MG 20:38: MOUTH Raul Oral Tablet 00 EVERY 6 TO 8 HOURS NEEDED predniSONE Yes TAKE 1 Memor ia 10 mg oral 2-02 TABLET BY l tablet 20:38: MOUTH Raul 00 EVERY DAY FOR 90 DAYS doxycycline Yes TAKE 1 Jose Francisco zhang hyclate 100 2-02 CAPSULE BY l MG Oral 20:38: MOUTH [place] Capsule 00 TWICE A DAY Colestipol Yes TAKE 1 Memor ia Hydrochlori 2-02 TABLET BY l de 1000 MG 20:38: MOUTH Ajay n Oral Tablet 00 TWICE A DAY pantoprazol Yes TAKE 1 Jose Francisco zhang e 40 mg 2-02 TABLET BY l oral 20:38: MOUTH 2 Raul enteric 00 TIMES coated DAILY HALF tablet HOUR BEFORE BREAKFAST OR FIRST MEAL oxybutynin Yes TAKE 1 Memor ia 5 mg oral 2-02 TABLET BY l tablet 20:38: MOUTH Raul 00 THREE TIMES A DAY NIFEdipine Yes TAKE 1 Memor ia (Eqv-Adalat 2-02 TABLET BY l CC) 30 mg 20:38: MOUTH [place] oral 00 EVERY DAY tablet, ON EMPTY extended STOMACH release FOR 30 DAYS Furosemide Yes TAKE 1 Memor ia 40 MG Oral 2-02 TABLET BY l Tablet 20:38: MOUTH Raul 00 EVERY DAY NEEDED FOR SWELLING tramadol Yes TAKE 1 Memoria hydrochlori 2-02 TABLET BY l de 50 MG 20:38: MOUTH Raul Oral Tablet 00 EVERY 6 TO 8 HOURS NEEDED predniSONE Yes TAKE 1 Memor ia 10 mg oral 2-02 TABLET BY l tablet 20:38: MOUTH Raul 00 EVERY DAY FOR 90 DAYS doxycycline [...] TABLET BY l oral 20:38: MOUTH 2 Raul enteric 00 TIMES coated DAILY HALF tablet HOUR BEFORE BREAKFAST OR FIRST MEAL oxybutynin Yes TAKE 1 Memor ia 5 mg oral 2-02 TABLET BY l tablet 20:38: MOUTH Raul 00 THREE TIMES A DAY NIFEdipine Yes TAKE 1 Memor ia (Eqv-Adalat 2-02 TABLET BY l CC) 30 mg 20:38: MOUTH [place] oral 00 EVERY DAY tablet, ON EMPTY extended STOMACH release FOR 30 DAYS Furosemide Yes TAKE 1 Memor ia 40 MG Oral 2-02 TABLET BY l Tablet 20:38: MOUTH Raul 00 EVERY DAY NEEDED FOR SWELLING tramadol Yes TAKE 1 Memoria hydrochlori 2-02 TABLET BY l de 50 MG 20:38: MOUTH Raul Oral Tablet 00 EVERY 6 TO 8 HOURS NEEDED predniSONE Yes TAKE 1 Memor ia 10 mg oral 2-02 TABLET BY l tablet 20:38: MOUTH [place] 00 EVERY DAY FOR 90 DAYS doxycycline Yes TAKE 1 Jose Francisco zhang hyclate 100 2-02 CAPSULE BY l MG Oral 20:38: MOUTH [place] Capsule 00 TWICE A DAY Colestipol Yes TAKE 1 Memor ia Hydrochlori 2-02 TABLET BY l de 1000 MG 20:38: MOUTH Ajay n Oral Tablet 00 TWICE A DAY pantoprazol Yes TAKE 1 Jose Francisco zhang e 40 mg 2-02 TABLET BY l oral 20:38: MOUTH 2 [place] enteric 00 TIMES coated DAILY HALF tablet HOUR BEFORE BREAKFAST OR FIRST MEAL oxybutynin Yes TAKE 1 Memor ia 5 mg oral 2-02 TABLET BY l tablet 20:38: MOUTH [place] 00 THREE TIMES A DAY donepezil Yes = 1 tab, Jose Francisco zhang 10 mg oral 3-26 PO, Daily, l tablet 19:08: # 90 tab, Ajay n 00 1 Refill(s), Pharmacy: [id number], 149.86, cm, 12/24/20 13:59:00 CDT, Height, 93.182, kg, 12/24/20 13:59:00 CDT, Weight primidone 2021-0 Yes 50 mg = 1 Mem oria 50 mg oral 3-26 tab, PO, l tablet 19:08: Bedtime, # Jessie nn 00 90 tab, 2 Refill(s), Pharmacy: [facility] #[id number], 149.86, cm, 12/24/20 13:59:00 CDT, Height, 93.182, kg, 12/24/20 13:59:00 CDT, Weight donepezil 2021-0 Yes = 1 tab, Jose Francisco zhang 10 mg oral 3-26 PO, Daily, l tablet 19:08: # 90 tab, Ajay n 00 1 Refill(s), Pharmacy: [id number], 149.86, cm, 12/24/20 13:59:00 CDT, Height, 93.182, kg, 12/24/20 13:59:00 CDT, Weight primidone 2021-0 Yes 50 mg = 1 Mem oria 50 mg oral 3-26 tab, PO, l tablet 19:08: Bedtime, # Jessie nn 00 90 tab, 2 Refill(s), Pharmacy: [id number], 149.86, cm, 12/24/20 13:59:00 CDT, Height, 93.182, kg, 12/24/20 13:59:00 CDT, Weight donepezil 2021-0 Yes = 1 tab, Jose Francisco zhang 10 mg oral 3-26 PO, Daily, l tablet 19:08: # 90 tab, Ajay n 00 1 Refill(s), Pharmacy: [id number], 149.86, cm, 12/24/20 13:59:00 CDT, Height, 93.182, kg, 12/24/20 13:59:00 CDT, Weight primidone 2021-0 Yes 50 mg = 1 Mem oria 50 mg oral 3-26 tab, PO, l tablet 19:08: Bedtime, # Jessie nn 00 90 tab, 2 Refill(s), Pharmacy: [id number], 149.86, cm, 12/24/20 13:59:00 CDT, Height, 93.182, kg, 12/24/20 13:59:00 CDT, Weight Lidocaine Lidocaine 2020-0 No 10mg Com 12-09 Spirit 00:00: - [facility] 00 [facility] Celestone Celestone 2020-0 No 6mg Com mon Soluspan Soluspan 3-11 Spirit (Betamethas (Betamethas 00:00: - CHI one) one) 00 [facility] Lidocaine Lidocaine 2020-0 No 10mg Com 12-09 Spirit 00:00: - [facility] 00 [facility] Celestone Celestone 2020-0 No 6mg Com mon Soluspan Soluspan 3-11 Spirit (Betamethas (Betamethas 00:00: - CHI one) one) 00 [facility] Lidocaine Lidocaine 2020-0 No 10mg Com 12-09 Spirit 00:00: - [facility]I 00 [facility] Celestone Celestone 2020-0 No 6mg Com mon Soluspan Soluspan 3-11 Spirit (Betamethas (Betamethas 00:00: - CHI one) one) 00 [facility] Lidocaine Lidocaine 2020-0 No 10mg Com 12-09 Spirit 00:00: - [facility]I 00 [facility] Celestone Celestone 2020-0 No 6mg Com mon Soluspan Soluspan 3-11 Spirit (Betamethas (Betamethas 00:00: - CHI one) one) 00 [facility] Lidocaine Lidocaine 2020-0 No 10mg Com 12-09 Spirit 00:00: - [facility]I 00 [facility] Celestone Celestone 2020-0 No 6mg Com mon Soluspan Soluspan 3-11 Spirit (Betamethas (Betamethas 00:00: - CHI one) one) 00 [facility] Lidocaine Lidocaine 2020-0 No 10mg Com 12-09 Spirit 00:00: - [facility]I 00 [facility] Celestone Celestone 2020-0 No 6mg Com mon Soluspan Soluspan 3-11 Spirit (Betamethas (Betamethas 00:00: - CHI one) one) 00 [facility] Lovastatin 2019-10 No 20 mg, 1 Mem oria 2-07 tab, l 03:00: Route: PO, [place] 00 Drug form: TAB, Bedtime, Dosing Weight 104.545, kg, Start date: 09/05/20 21:00:00 AERODYNAMIC CONSULTANT, 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, Stop date: 10/04/20 21:00:00 AERODYNAMIC CONSULTANT Primidone 2019-10 No Notes: Memori a 2-07 (Same as: l 03:00: Mysoline) Lipitor 2019-10 No Notes: Memoria 2-07 (Same As: l 03:00: Lipitor) Lovastatin 2019-10 No 20 mg, 1 Mem oria 2-07 tab, l 03:00: Route: PO, Raul 00 Drug form: TAB, Bedtime, Dosing Weight 104.545, kg, Start date: 09/05/20 21:00:00 AERODYNAMIC CONSULTANT, 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, Stop date: 10/04/20 21:00:00 AERODYNAMIC CONSULTANT Primidone 2019-10 No Notes: Memori a 2-07 (Same as: l 03:00: Mysoline) Lipitor 2019-10 No Notes: Memoria 2-07 (Same As: l 03:00: Lipitor) Lovastatin 2019-10 No 20 mg, 1 Mem oria 2-07 tab, l 03:00: Route: PO, Drug form: TAB, Bedtime, Dosing Weight 104.545, kg, Start date: 09/05/20 21:00:00 AERODYNAMIC CONSULTANT, 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, Stop date: 10/04/20 21:00:00 AERODYNAMIC CONSULTANT Primidone 2019-10 No Notes: Memori a 2-07 (Same as: l 03:00: Mysoline) Lipitor 2019-10 No Notes: Memoria 2-07 (Same As: l 03:00: Lipitor) Acetaminoph 2019-10 Yes 500 mg = 1 Memoria en 500 MG 2-06 tab, PO, l Oral Tablet 18:51: Q6Hnow, 0 H ermann 00 Refill(s) Acetaminoph 2019-10 Yes 500 mg = 1 Memoria en 500 MG 2-06 tab, PO, l Oral Tablet 18:51: Q6Hnow, 0 H ermann 00 Refill(s) Acetaminoph 2019-10 Yes 500 mg = 1 Memoria en 500 MG 2-06 tab, PO, l Oral Tablet 18:51: Q6Hnow, 0 H Refill(s) DuoNeb 2019-10 No Notes: Memoria inhalation 2-06 (Same as: l solution 17:00: Duoneb) Ajay n DuoNeb 2019-10 No Notes: Memoria inhalation 2-06 (Same as: l solution 17:00: Duoneb) Ajay n DuoNeb 2019-10 No Notes: Memoria inhalation 2-06 (Same as: l solution 17:00: Duoneb) Ajay Pulmicort 2019-10 No Notes: Memori a Respules 2-06 (Same As: l 16:00: Pulmicort) Pulmicort 2019-10 No Notes: Memori a Respules 2-06 (Same As: l 16:00: Pulmicort) Pulmicort 2019-10 No Notes: Memori a Respules [...] 104.545, kg, Daily, Start date: 09/05/20 9:00:00 AERODYNAMIC CONSULTANT, 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, Stop date: 10/04/20 9:00:00 AERODYNAMIC CONSULTANT gabapentin 2019-10 No Notes: Memor ia 300 MG Oral 2-06 (Same as: l Capsule 15:00: Neurontin) ropinirole 2019-10 No Notes: Memor ia 2-06 (Same as: l 15:00: Requip) Bupropion 2019-10 No Notes: Memori a 2-06 (Same as: l 15:00: Wellbutrin [place] 00 XL) "Do Not Crush" carvedilol 2019-10 No [...] inhalation l 62.5 mcg-25 15:00: , Route: rmann mcg 00 INHALATION inhalation , Drug powder Form: PWDR, Dosing Weight 104.545, kg, Daily, Start date: 09/05/20 9:00:00 AERODYNAMIC CONSULTANT, 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, Stop date: 10/04/20 9:00:00 AERODYNAMIC CONSULTANT gabapentin 2019-10 No Notes: Memor ia 300 MG Oral 2-06 (Same as: l Capsule 15:00: Neurontin) ropinirole 2019-10 No Notes: Memor ia 2-06 (Same as: l 15:00: Requip) Bupropion 2019-10 No Notes: Memori a 2-06 (Same as: l 15:00: Wellbutrin [place] 00 XL) "Do Not Crush" carvedilol 2019-10 No [...] 104.545, kg, Daily, Start date: 09/05/20 9:00:00 AERODYNAMIC CONSULTANT, 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, Stop date: 10/04/20 9:00:00 AERODYNAMIC CONSULTANT gabapentin 2019-10 No Notes: Memor ia 300 MG Oral 2-06 (Same as: l Capsule 15:00: Neurontin) ropinirole 2019-10 No Notes: Memor ia 2-06 (Same as: l 15:00: Requip) Streptococc 2019-10 No Notes: Jose Francisco zhang us 2-06 Shake well l pneumoniae 14:12: prior to Her ivory serotype 1 45 use (Same capsular as: antigen Prevnar diphtheria 13) [id number] protein conjugate vaccine / Streptococc us pneumoniae serotype 14 capsular antigen diphtheria [id number] protein conjugate vaccine / Streptococc us pneumoniae serotype 18C capsular antigen d Streptococc 2019-10 No Notes: Jose Francisco zhang us 2-06 Shake well l pneumoniae 14:12: prior to Her ivory serotype 1 45 use (Same capsular as: antigen Prevnar diphtheria 13) [id number] protein conjugate vaccine / Streptococc us pneumoniae serotype 14 capsular antigen diphtheria [id number] protein conjugate vaccine / Streptococc us pneumoniae serotype 18C capsular antigen d Streptococc 2019-10 No Notes: Jose Francisco zhang us 2-06 Shake well l pneumoniae 14:12: prior to Her ivory serotype 1 45 use (Same capsular as: antigen Prevnar diphtheria 13) [id number] protein conjugate vaccine / Streptococc us pneumoniae serotype 14 capsular antigen diphtheria [id number] protein conjugate vaccine / Streptococc us pneumoniae serotype 18C capsular antigen d Thyroxine 2019-10 No Notes: Memori a 2-06 Take 1 l 14:00: hour before or 2 hours after meal; Enteral feeds may interefere with the absorption of this medication . (Same as:Levothr oid) Thyroxine 2019-10 No Notes: Memori a 2-06 Take 1 l 14:00: hour Raul 00 before or 2 hours after meal; Enteral feeds may interefere with the absorption of this medication . (Same as:Levothr oid) Thyroxine 2019-10 No Notes: Memori a 2-06 Take 1 l 14:00: hour Raul 00 before or 2 hours after meal; Enteral feeds may interefere with the absorption of this medication . (Same as:Levothr oid) Iohexol 2019-10 No 100 mL, Memoria 2-06 Route: l 12:39: IVP, Drug [place] 00 Form: SOLN, Dosing Weight 104.545, kg, ONCALL, STAT, Start date: 09/05/20 6:39:00 AERODYNAMIC CONSULTANT, Duration: 1 doses or times, Dose = 2.2ml/kg, Max dose = 100ml -- "To be infused by Radiology Staff ONLY" Iohexol 2019-10 No 100 mL, Memoria 2- Route: l 12:39: IVP, Drug Raul 00 Form: SOLN, Dosing Weight 104.545, kg, ONCALL, STAT, Start date: 09/05/20 6:39:00 AERODYNAMIC CONSULTANT, Duration: 1 doses or times, Dose = 2.2ml/kg, Max dose = 100ml -- "To be infused by Radiology Staff ONLY" Iohexol 2019-10 No 100 mL, Memoria 2-06 Route: l 12:39: IVP, Drug [place] 00 Form: SOLN, Dosing Weight 104.545, kg, ONCALL, STAT, Start date: 09/05/20 6:39:00 AERODYNAMIC CONSULTANT, Duration: 1 doses or times, Dose = 2.2ml/kg, Max dose = 100ml -- "To be infused by Radiology Staff ONLY" Acetaminoph 2019-10 No Notes: Max Memoria en 2-06 acetaminop l 07:00: hen 4000 Raul 00 mg/day (4 gm/day). (Same as: Tylenol Extra Strength) Acetaminoph 2019-10 No Notes: Max Memoria en 2-06 acetaminop l 07:00: hen 4000 [place] 00 mg/day (4 gm/day). (Same as: Tylenol Extra Strength) Acetaminoph 2019-10 No Notes: Max Memoria en 2-06 acetaminop l 07:00: hen 4000 [place] 00 mg/day (4 gm/day). (Same as: Tylenol Extra Strength) Oxycodone 2019-10 No Notes: Memori a Hydrochlori 2-06 (Same as: l de 1 MG/ML 06:48: 'Roxicodon H ermann Oral 00 e) Solution spironolact 2019-10 Yes 25 mg = 1 M emoria one 25 mg 2-06 tab, PO, l oral tablet 06:48: Daily, # He rmann 00 30 tab, 3 Refill(s) carvedilol 2019-10 Yes 6.25 mg = Me moria 6.25 mg 2-06 1 tab, PO, l oral tablet 06:48: BID, # 180 [place] 00 tab, 1 Refill(s) amLODIPine 2019-10 Yes [...] PRN COPD, # 1 ea, 0 Refill(s) Oxycodone 2019-10 No Notes: Memori a Hydrochlori 2-06 (Same as: l de 1 MG/ML 06:48: 'Roxicodon H ermann Oral 00 e) Solution spironolact 2019-10 Yes 25 mg = 1 M emoria one 25 mg 2-06 tab, PO, l oral tablet 06:48: Daily, # He rmann 00 30 tab, 3 Refill(s) carvedilol 2019-10 Yes 6.25 mg = Me moria 6.25 mg 2-06 1 tab, PO, l oral tablet 06:48: BID, # 180 [place] 00 tab, 1 Refill(s) amLODIPine 2019-10 Yes 10 mg = 1 Me moria 10 mg oral 2-06 tab, PO, l tablet 06:48: Daily, # [place] 00 90 tab, 0 Refill(s) escitalopra 2019-10 [...] tab, PO, l Tablet 06:48: Daily, # [place] 00 60 tab, 1 Refill(s) Trelegy 2019-10 Yes = 1 Memoria Ellipta 2-06 inhalation l inhalation 06:48: , PO, Ajay n powder 00 Daily, PRN COPD, # 1 ea, 0 Refill(s) Oxycodone 2019-10 No Notes: Memori a Hydrochlori 2-06 (Same as: l de 1 MG/ML 06:48: 'Roxicodon H ermann Oral 00 e) Solution spironolact 2019-10 Yes 25 mg = 1 M emoria one 25 mg 2-06 tab, PO, l oral tablet 06:48: Daily, # He rmann 00 30 tab, 3 Refill(s) carvedilol 2019-10 Yes 6.25 mg = Me moria 6.25 mg 2-06 1 tab, PO, l oral tablet 06:48: BID, # 180 Raul 00 tab, 1 Refill(s) amLODIPine 2019-10 Yes [...] No 12.5 gm, Memor ia 50% Syringe 06 25 mL, l (D50W) 06:47: Route: IVP, Drug Form: INJ, Dosing Weight 104.545, kg, PRN, PRN Blood Glucose Results, Start date: 09/05/20 0:47:00 AERODYNAMIC CONSULTANT, 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, Stop date: 10/05/20 0:46:00 AERODYNAMIC CONSULTANT, 0 Glucagon 2019-10 No 1 mg, Memoria 11-06 Route: IM, l 06:47: Drug form: PDR/INJ, PRN, Dosing Weight 104.545, kg, PRN Blood Glucose Results, Start date: 09/05/20 0:47:00 AERODYNAMIC CONSULTANT, 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, Stop date: 10/05/20 0:46:00 AERODYNAMIC CONSULTANT, 0 sennosides, 2019-10 No Notes: Jose Francisco zhang DETENTION 2- (Same as: l 06:47: Senokot) POLYETHYLEN [...] a 2-06 (Same as: l 06:47: Melatonin) [place] 00 LR IV 1,000 2019-10 No 1,000 mL, M emoria mL 2-06 Rate: 100 l 06:47: ml/hr, Infuse over: 10 hr, Route: IV, Dosing Weight 104.545 kg, Total Volume: 1,000, Start date: 09/05/20 0:47:00 AERODYNAMIC CONSULTANT, Duration: 1 day, Stop date: 09/06/20 0:46:00 AERODYNAMIC CONSULTANT, 1.97, m2, 0 Tums 2019-10 No Notes: Memoria 2-06 (Same As: l 06:47: Tums) Calcium Carbonate 500 mg = 200 mg elemental calcium Dose = mg calcium carbonate ( mg elemental calcium) Simethicone 2019-10 No Notes: Jose Francisco zhang 2-06 (Same as: l 06:47: Mylicon) Lubricant 2019-10 No Notes: Memori a Eye Drops 2-06 (Same as: l 06:47: Aquasite) Raul 00 Nasal Moist 2019-10 No Notes: Jose Francisco zhang 0.65% 2-06 (Same as: l solution 06:47: Huntley, Raul Deep Sea Nasal [place]). Tessalon 2019-10 No Notes: Memoria Perles 2-06 (Same As: l 06:47: Tessalon Raul 00 Perles) "Do Not Crush" Guaifenesin 2019-10 No Notes: Jose Francisco zhang 2-06 (Same as: l 06:47: Organidin Raul 00 NR) Blistex 2019-10 No Notes: Memoria topical 2-06 Same as: l ointment 06:47: Blistex Ajay n 00 Albuterol 2019-10 No Notes: SEE Me moria 0.83 MG/ML 2-06 RT l Inhalant 06:47: DOCUMENTAT Her ivory Solution 00 ION (Same as: Proventil) Tessalon 2019-10 No Notes: Memoria Perles 2-06 (Same As: l 06:47: Tessalon Raul 00 Perles) "Do Not Crush" Guaifenesin 2019-10 [...] 2-06 25 mL, l (D50W) 06:47: Route: IVP, Drug Form: INJ, Dosing Weight 104.545, kg, PRN, PRN Blood Glucose Results, Start date: 09/05/20 0:47:00 AERODYNAMIC CONSULTANT, 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, Stop date: 10/05/20 0:46:00 AERODYNAMIC CONSULTANT, 0 Glucagon 2019-10 No 1 mg, Memoria 11-06 Route: IM, l 06:47: Drug form: [place] 00 PDR/INJ, PRN, Dosing Weight 104.545, kg, PRN Blood Glucose Results, Start date: 09/05/20 0:47:00 AERODYNAMIC CONSULTANT, 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, Stop date: 10/05/20 0:46:00 AERODYNAMIC CONSULTANT, 0 sennosides, 2019-10 No Notes: Jose Francisco zhang DETENTION 2-06 (Same as: l 06:47: Senokot) POLYETHYLEN [...] 2019-10 No 1,000 mL, M emoria mL 2-06 Rate: 100 l 06:47: ml/hr, Infuse over: 10 hr, Route: IV, Dosing Weight 104.545 kg, Total Volume: 1,000, Start date: 09/05/20 0:47:00 AERODYNAMIC CONSULTANT, Duration: 1 day, Stop date: 09/06/20 0:46:00 AERODYNAMIC CONSULTANT, 1.97, m2, 0 Tums 2019-10 No Notes: [...] 0.65% 2- (Same as: l solution 06:47: [place], [place] Nasal [place]). Dextrose 2019-10 No 12.5 gm, Memor ia 50% Syringe 2-06 25 mL, l (D50W) 06:47: Route: IVP, Drug Form: INJ, Dosing Weight 104.545, kg, PRN, PRN Blood Glucose Results, Start date: 09/05/20 0:47:00 AERODYNAMIC CONSULTANT, 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, Stop date: 10/05/20 0:46:00 AERODYNAMIC CONSULTANT, 0 Glucagon 2019-10 No 1 mg, Memoria 2- Route: IM, l 06:47: Drug form: PDR/INJ, PRN, Dosing Weight 104.545, kg, PRN Blood Glucose Results, Start date: 09/05/20 0:47:00 AERODYNAMIC CONSULTANT, 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, Stop date: 10/05/20 0:46:00 AERODYNAMIC CONSULTANT, 0 sennosides, 2019-10 No Notes: Jose Francisco zhang DETENTION 2-06 (Same as: l 06:47: Senokot) POLYETHYLEN [...] a 2-06 (Same as: l 06:47: Melatonin) [place] LR IV 1,000 2019-10 No 1,000 mL, M emoria mL 2-06 Rate: 100 l 06:47: ml/hr, Infuse over: 10 hr, Route: IV, Dosing Weight 104.545 kg, Total Volume: 1,000, Start date: 09/05/20 0:47:00 AERODYNAMIC CONSULTANT, Duration: 1 day, Stop date: 09/06/20 0:46:00 AERODYNAMIC CONSULTANT, 1.97, m2, 0 Tums 2019-10 No Notes: Memoria 2-06 (Same As: l 06:47: Tums) Calcium Carbonate 500 mg = 200 mg elemental calcium Dose = mg calcium carbonate ( mg elemental calcium) Simethicone 2019-10 No Notes: Jose Francisco zhang 2-06 (Same as: l 06:47: Mylicon) [place] 00 Lubricant 2019-10 No Notes: Memori a Eye Drops 2-06 (Same as: l 06:47: Aquasite) [place] 00 Nasal Moist 2019-10 No Notes: Jose Francisco zhang 0.65% 2-06 (Same as: l solution 06:47: [place], Raul 00 [place] Nasal [place]). Tessalon 2019-10 No Notes: Memoria Perles 2-06 [...] 06:45: Apresoline ) Push over 5 minutes Hydralazine 2019-10 No Notes: Jose Francisco zhang 2-06 (Same as: l 06:45: Apresoline ) Push over 5 minutes Hydralazine 2019-10 No Notes: Jose Francisco zhang 2-06 (Same as: l 06:45: Apresoline ) Push over 5 minutes Acetaminoph 2019-10 No 1 tab, Jose Francisco zhang en 325 MG / 206 Route: PO, l Hydrocodone 04:07: Drug Form: [place] Bitartrate 00 TAB, 5 MG Oral Dosing Tablet Weight 104.545, kg, ONCE, STAT, Start date: 09/04/20 22:07:00 AERODYNAMIC CONSULTANT, Stop date: 09/04/20 22:07:00 AERODYNAMIC CONSULTANT Acetaminoph 2019-10 No 1 tab, Jose Francisco zhang en 325 MG / 11-06 Route: PO, l Hydrocodone 04:07: Drug Form: [place] Bitartrate 00 TAB, 5 MG Oral Dosing Tablet Weight 104.545, kg, ONCE, STAT, Start date: 09/04/20 22:07:00 AERODYNAMIC CONSULTANT, Stop date: 09/04/20 22:07:00 AERODYNAMIC CONSULTANT Acetaminoph 2019-10 No 1 tab, Jose Francisco zhang en 325 MG / 11-06 Route: PO, l Hydrocodone 04:07: Drug Form: [place] Bitartrate 00 TAB, 5 MG Oral Dosing Tablet Weight 104.545, kg, ONCE, STAT, Start date: 09/04/20 22:07:00 AERODYNAMIC CONSULTANT, Stop date: 09/04/20 22:07:00 AERODYNAMIC CONSULTANT HYDROcodone 2019- No 1{tbl} 1 tablet, Univers -acetaminop 06-28 Oral, ity of hen (NORCO 20:30: 19:23 ONCE, 1 Carlos as 5) 5-325 mg 00 :00 dose, Mon Med ical tablet 1 06/28/20 at Bran h tablet 1530, DIMITRIS metoprolol 2019- No 50mg 50 mg, Univ ers succinate [...] hours as needed. ALBUTEROL 2020-0 Yes [facility]. [facility] 06-28 ity of INHALE 17:14: [place] [address] Medical Branch misoprostol 2019-0 2020- No 200ug Take 200 Univers (CYTOTEC) 06-28 mcg by ity of 200 mcg 17:13: 00:00 mouth [place] tablet 46 :00 daily. Medical Branch fenofibrate 0 2020- No 145mg Take 145 Univers (TRICOR) 06-28 mg by ity of 145 mg 17:13: 00:00 mouth [place] tablet 14 :00 daily. Medical Branch diphenoxyla 2020-0 Yes 1{tbl} Take 1 Un martha te-atropine - tablet by ity of (LOMOTIL) 12:14: mouth [place] 2.5-0.025 43 every 6 Medical mg tablet (six) Branch hours as needed. ALBUTEROL 2020-0 Yes Inhale. Unive rs SULFATE 06-28 ity of INHALE 12:14: [place] [address] Medical Branch acetaminoph 2020-0 Yes 4647 1{tbl} Take 1 Un martha en-codeine 06-28 tablet by ity of 300-30 mg 00:00: mouth [place] tablet 00 every 4 Medical (four) Branch hours as needed for Pain (scale 4-6). Indication s: acute pain acetaminoph 2020-0 Yes 4647 1{tbl} Take 1 Un martha en-codeine 9-28 tablet by ity of 300-30 mg 00:00: mouth [place] tablet 00 every 4 Medical (four) Branch hours as needed for Pain (scale 4-6). Indication s: acute pain primidone 2020-0 Yes 50 mg = 1 [...] Jessie nn 00 tab, 3 Refill(s), Pharmacy: [facility] #[id number], 149.86, cm, 05/25/20 13:41:00 CDT, Height, 95.455, kg, 05/25/20 13:41:00 CDT, Weight primidone 2020-0 Yes 50 mg = 1 Mem oria 50 mg oral 8-25 tab, PO, l tablet 19:03: BID, # 180 Jessie nn 00 tab, 3 Refill(s), Pharmacy: [facility] #[id number], 149.86, cm, 05/25/20 13:41:00 CDT, Height, 95.455, kg, 05/25/20 13:41:00 CDT, Weight primidone 2020-0 Yes 50 mg = 1 Mem oria 50 mg oral 8-25 tab, PO, l tablet 19:03: BID, # 180 Jessie nn 00 tab, 3 Refill(s), Pharmacy: [facility] #[id number], 149.86, cm, 05/25/20 13:41:00 CDT, Height, 95.455, kg, 05/25/20 13:41:00 CDT, Weight primidone 2020-0 No 50 mg = 1 Mem oria 50 mg oral 6-25 tab, PO, l tablet 13:48: Bedtime, # Jessie nn 00 90 tab, 3 Refill(s), Pharmacy: [facility] #[id number], 149.86, cm, 03/24/20 9:12:00 CDT, Height, 90.909, kg, 03/24/20 9:12:00 CDT, Weight primidone 2020-0 No 50 mg = 1 Mem oria 50 mg oral 6-25 tab, PO, l tablet 13:48: Bedtime, # Jessie nn 00 90 tab, 3 Refill(s), Pharmacy: [facility] #[id number], 149.86, cm, 03/24/20 9:12:00 CDT, Height, 90.909, kg, 03/24/20 9:12:00 CDT, Weight primidone 2020-0 No 50 mg = 1 Mem oria 50 mg oral 6-25 tab, PO, l tablet 13:48: Bedtime, # Jessie nn 00 90 tab, 3 Refill(s), Pharmacy: [facility] #[id number], 149.86, cm, 03/24/20 9:12:00 CDT, Height, 90.909, kg, 03/24/20 9:12:00 CDT, Weight donepezil 2020-0 Yes 10 mg = 1 Mem oria 10 mg oral 6-24 tab, PO, l tablet 14:32: Daily, # [place] 00 30 tab, 3 Refill(s), Pharmacy: [facility] #[id number], 149.86, cm, 03/24/20 9:12:00 CDT, Height, 90.909, kg, 03/24/20 9:12:00 CDT, Weight primidone 2020-0 No 50 mg = 1 Mem oria 50 mg oral 6-24 tab, PO, l tablet 14:32: Bedtime, X Jessie nn 00 30 day, # 30 tab, 3 Refill(s), Pharmacy: [facility] #[id number], 149.86, cm, 03/24/20 9:12:00 CDT, Height, 90.909, kg, 03/24/20 9:12:00 CDT, Weight donepezil 2020-0 Yes 10 mg = 1 Mem oria 10 mg oral 6-24 tab, PO, l tablet 14:32: Daily, # Raul 00 30 tab, 3 Refill(s), Pharmacy: [facility] #[id number], 149.86, cm, 03/24/20 9:12:00 CDT, Height, 90.909, kg, 03/24/20 9:12:00 CDT, Weight primidone 2020-0 No 50 mg = 1 Mem oria 50 mg oral 6-24 tab, PO, l tablet 14:32: Bedtime, X Jessie nn 30 day, # 30 tab, 3 Refill(s), Pharmacy: [facility] #[id number], 149.86, cm, 03/24/20 9:12:00 CDT, Height, 90.909, kg, 03/24/20 9:12:00 CDT, Weight donepezil 2020-0 Yes 10 mg = 1 Mem oria 10 mg oral 6-24 tab, PO, l tablet 14:32: Daily, # [place] 00 30 tab, 3 Refill(s), Pharmacy: [facility] #[id number], 149.86, cm, 03/24/20 9:12:00 CDT, Height, 90.909, kg, 03/24/20 9:12:00 CDT, Weight primidone 2020-0 No 50 mg = 1 Mem oria 50 mg oral 6-24 tab, PO, l tablet 14:32: Bedtime, X Jessie nn 30 day, # 30 tab, 3 Refill(s), Pharmacy: [facility] #[id number], 149.86, cm, 03/24/20 9:12:00 CDT, Height, 90.909, kg, 03/24/20 9:12:00 CDT, Weight sucralfate 2020-0 Yes [id number] .[id number][in_ Apply 0.25 Univers malate, 5-21 us] Inches as ity of polymerized 00:00: directed 4 [place] 1 gram/10 00 (four) Medical mL Pste times Branch daily as needed for Pain (scale 1-3). sucralfate 2019- No [id number] .[id number][in_ Apply 0.25 Univers [facility], 02-18 us] Inches as ity of polymerized 00:00: 00:00 directed 4 [place] 1 gram/10 00 :00 (four) Medical mL Pste times Branch daily as needed for Pain (scale 1-3). topiramate 2018-10 No 25 mg = 1 Me moria 25 MG Oral 0-24 tab, PO, l Tablet 20:22: Bedtime, # Jessie nn [Topamax] 00 30 tab, 3 Refill(s) topiramate 2018-10 No 25 mg = 1 Me moria 25 MG Oral 0-24 tab, PO, l Tablet 20:22: Bedtime, # Jessie nn [Topamax] 00 30 tab, 3 Refill(s) topiramate 2018-10 No 25 mg = 1 Me moria 25 MG Oral 0-24 tab, PO, l Tablet 20:22: Bedtime, # Jessie nn [Topamax] 00 30 tab, 3 Refill(s) [place] 2018- Yes 1 ea, Memoria 7-26 MISC, l 21:45: Daily, # 1 Raul 00 ea, 0 Refill(s) [place] 2018- Yes 1 ea, Memoria 7-26 MISC, l 21:45: Daily, # 1 [place] 00 ea, 0 Refill(s) [place] 2018- Yes 1 ea, Memoria 7-26 MISC, l 21:45: Daily, # 1 Raul 00 ea, 0 Refill(s) Adult 201[address] Yes 81 mg = 1 Memoria Aspirin 81 6-21 tab, CHEW, l mg oral 20:18: Daily, # Ajay n tablet, 00 30 tab, 3 chewable Refill(s), Pharmacy: [facility] #[id number] Adult Yes 81 mg = 1 Memoria Aspirin 81 6-21 tab, CHEW, l mg oral 20:18: Daily, # Ajay n tablet, 00 30 tab, 3 chewable Refill(s), Pharmacy: [facility] #[id number] Adult Yes 81 mg = 1 Memoria Aspirin 81 6-21 tab, CHEW, l mg oral 20:18: Daily, # Ajay n tablet, 00 30 tab, 3 chewable Refill(s), Pharmacy: [facility] #[id number] levothyroxi 2019-0 Yes 125 Memori a ne 125 mcg 5-24 microgram l (0.125 mg) 20:29: = 1 tab, [place] oral tablet 00 PO, Daily, # 30 tab, 0 Refill(s) gabapentin 2019-0 Yes 300 mg = 1 M emoria 300 MG Oral 5-24 cap, PO, l Capsule 20:29: BID, # 90 Jessie nn 00 cap, 1 Refill(s) levothyroxi 2019-0 Yes 125 Memori a ne 125 mcg 5-24 microgram l (0.125 mg) 20:29: = 1 tab, Her [place] oral tablet 00 PO, Daily, # 30 tab, 0 Refill(s) gabapentin 2019-0 Yes 300 mg = 1 M emoria 300 MG Oral 5-24 cap, PO, l Capsule 20:29: BID, # 90 Jessie nn 00 cap, 1 Refill(s) levothyroxi 2019-0 Yes 125 Memori a ne 125 mcg [...] 0.025 MG / 20:06: for loose Catalino rmbernie Diphenoxyla 00 stool, 0 te Refill(s) Hydrochlori de 2.5 MG Oral Tablet [Lomotil] lovastatin Yes 20 mg = 1 Me moria 20 mg oral 5-24 tab, PO, l tablet 20:06: Bedtime, # Jessie nn 00 30 tab, 0 Refill(s) rOPINIRole 2019 Yes 2 mg = 1 Mem oria 2 mg oral 5-24 tab, PO, l tablet 20:06: BID, 0 Raul 00 Refill(s) lisinopril 2019 Yes 40 mg = 1 Me moria 40 mg oral 5-24 tab, PO, l tablet 20:06: Daily, # [place] 00 30 tab, 0 Refill(s) donepezil Yes 10 mg = 1 Mem oria 10 mg oral 5-24 tab, PO, l tablet 20:06: Daily, # [place] 00 30 tab, 0 Refill(s) ProAir HFA Yes 1 - 2 Memori a 5-24 puffs, PO, l 20:06: Q4H, PRN Raul 00 Wheezing / cough / shortness of breath, # 1 ea, 0 Refill(s) metoprolol Yes 50 mg = 1 Me moria 50 mg oral 5-24 tab, PO, l tablet, 20:06: Daily, # Ajay n extended 00 30 tab, 0 release Refill(s) Escitalopra Yes 20 mg = 1 M emoria m 20 MG 5-24 tab, PO, l Oral Tablet 20:06: Daily, # He rmbernie [Lexapro] 00 30 tab, 0 Refill(s) omeprazole 2019 Yes 40 mg = 1 Me moria 40 mg oral 5-24 cap, PO, l delayed 20:06: Daily, # Ajay n release 00 30 cap, 0 capsule Refill(s) amLODIPine Yes 5 mg = 1 Mem oria 5 mg oral 5-24 tab, PO, l tablet 20:06: Daily, # Raul 00 90 tab, 0 Refill(s) Atropine 2019 Yes 2 tab, PO, Mem oria Sulfate 5-24 PRN, PRN l 0.025 MG / 20:06: for loose Catalino rmbernie Diphenoxyla 00 stool, 0 te Refill(s) Hydrochlori de 2.5 MG Oral Tablet [Lomotil] lovastatin Yes 20 mg = 1 Me moria 20 mg oral 5-24 tab, PO, l tablet 20:06: Bedtime, # Jessie nn 00 30 tab, 0 Refill(s) rOPINIRole 2019 Yes 2 mg = 1 Mem oria 2 mg oral 5-24 tab, PO, l tablet 20:06: BID, 0 Raul 00 Refill(s) lisinopril Yes 40 mg = 1 Me moria 40 mg oral 5-24 tab, PO, l tablet 20:06: Daily, # [place] 00 30 tab, 0 Refill(s) donepezil Yes 10 mg = 1 Mem oria 10 mg oral 5-24 tab, PO, l tablet 20:06: Daily, # Raul 00 30 tab, 0 Refill(s) ProAir HFA Yes 1 - 2 Memori a 5-24 puffs, PO, l 20:06: Q4H, PRN Raul 00 Wheezing / cough / shortness of breath, # 1 ea, 0 Refill(s) metoprolol Yes 50 mg = 1 Me moria 50 mg oral 5-24 tab, PO, l tablet, 20:06: Daily, # Ajay n extended 00 30 tab, 0 release Refill(s) Escitalopra 2019 Yes 20 mg = 1 Keesha emoria m 20 MG 5-24 tab, PO, l Oral Tablet 20:06: Daily, # [place] rmbernie [Lexapro] 00 30 tab, 0 Refill(s) omeprazole Yes 40 mg = 1 Me moria 40 mg oral 5-24 cap, PO, l delayed 20:06: Daily, # Ajay n release 00 30 cap, 0 capsule Refill(s) amLODIPine Yes 5 mg = 1 Mem oria 5 mg oral 5-24 tab, PO, l tablet 20:06: Daily, # Raul 00 90 tab, 0 Refill(s) Atropine Yes 2 tab, PO, Mem oria Sulfate 5-24 PRN, PRN l 0.025 MG / 20:06: for loose He rmann Diphenoxyla 00 stool, 0 te Refill(s) Hydrochlori de 2.5 MG Oral Tablet [Lomotil] lovastatin Yes 20 mg = 1 Me moria 20 mg oral 5-24 tab, PO, l tablet 20:06: Bedtime, # Jessie nn 00 30 tab, 0 Refill(s) rOPINIRole Yes 2 mg = 1 Mem oria 2 mg oral 5-24 tab, PO, l tablet 20:06: BID, 0 Raul 00 Refill(s) lisinopril Yes 40 mg = 1 Me moria 40 mg oral 5-24 tab, PO, l tablet 20:06: Daily, # Raul 00 30 tab, 0 Refill(s) donepezil Yes 10 mg = 1 Mem oria 10 mg oral 5-24 tab, PO, l tablet 20:06: Daily, # Raul 00 30 tab, 0 Refill(s) ProAir HFA Yes 1 - 2 Memori a 5-24 puffs, PO, l 20:06: Q4H, PRN [place] 00 Wheezing / cough / shortness of breath, # 1 ea, 0 Refill(s) [facility] 2017[facility] ity of 300-30 mg 00:00: [place] tablet 00 Medical Branch acetaminoph 2017-10 [facility] ity of 300-30 mg 00:00: [place] tablet 00 Medical Branch acetaminoph 2017-10 2020- No Unive rs en-codeine -18 -28 ity of 300-30 mg 00:00: 00:00 [...] [place] tablet 36 daily. Medical Branch metoprolol 2017 Yes 50mg Take 50 mg U nivers succinate 3-07 by mouth ity of XL (TOPROL 17:04: daily. [place] XL) 50 mg 36 Medical 24 hr Branch tablet rOPINIRole 2017 Yes 2mg Take 2 mg Un martha [...] [place] tablet 36 daily. Medical Branch amLODIPine Yes 5mg Take 5 mg Un martha (NORVASC) 5 3-07 by mouth ity of mg tablet 17:04: daily. [place] 36 Medical Branch lovastatin 20170 Yes 20mg Take 20 mg U nivers (MEVACOR) 3-07 by mouth ity of 20 mg 17:04: daily. [place] tablet 36 Medical Branch lisinopril 20170 Yes 40mg Take 40 mg U nivers (PRINIVIL,Z 3-07 by mouth ity of ESTRIL) 40 17:04: daily. [place] mg tablet 36 Medical Branch escitalopra 2017 Yes 20mg Take 20 mg Univers m oxalate 3-07 by mouth 2 ity of (LEXAPRO) 17:04: (two) [place] 20 mg 36 times Medical tablet daily. Branch gabapentin 2017-0 Yes 600mg Take 600 Un martha (NEURONTIN) [...] mouth ity of XL (TOPROL 17:04: daily. [place] XL) 50 mg 36 Medical 24 hr Branch tablet rOPINIRole 2017-0 Yes 2mg Take 2 mg Un martha (REQUIP) 2 3-07 by mouth 2 ity of mg tablet 17:04: (two) [place] 36 times Medical daily. Branch levothyroxi 20170 Yes 125ug Take 125 U nivers ne 3-07 mcg by ity of (SYNTHROID) 17:04: mouth [place] 125 mcg 36 daily. Medical tablet Branch donepezil 20170 Yes 10mg Take 10 mg Un martha (ARICEPT) 3-07 by mouth ity of 10 mg 17:04: daily. [place] tablet 36 Medical Branch misoprostol 20170 Yes 200ug Take 200 U nivers (CYTOTEC) 3-07 mcg by ity of 200 mcg 17:04: mouth [place] tablet 36 daily. Medical Branch amLODIPine 2017-0 Yes 5mg Take 5 mg Un martha (NORVASC) 5 3-07 by mouth ity of mg tablet 17:04: daily. [place] [address] Medical Branch lovastatin 2017-0 Yes 20mg Take [...] 36 times Medical tablet daily. Branch gabapentin 2017- Yes 600mg Take 600 Un martha (NEURONTIN) [...] mouth ity of 10 mg 17:04: daily. [place] tablet 36 Medical Branch amLODIPine 20170 Yes 5mg Take 5 mg Un martha (NORVASC) 5 3-07 by mouth ity of mg tablet 17:04: daily. [place] [address] Medical Branch lovastatin 0 Yes 20mg Take 20 mg U nivers (MEVACOR) 3-07 by mouth ity of 20 mg 17:04: daily. [place] tablet 36 Medical Branch lisinopril 20170 Yes 40mg Take 40 mg U nivers (PRINIVIL,Z 3-07 by mouth ity of ESTRIL) 40 11:04: daily. [place] mg tablet 36 Medical Branch escitalopra 2017-0 Yes 20mg Take 20 mg Univers m oxalate 3-07 by mouth 2 ity of (LEXAPRO) 11:04: (two) [place] 20 mg 36 times Medical tablet daily. Branch gabapentin 2017 Yes 600mg Take 600 Un martha (NEURONTIN) 3-07 mg by ity of 300 mg 11:04: mouth 2 [place] capsule 36 (two) Medical times Branch daily. omeprazole 2017-0 Yes 40mg Take 40 mg U nivers (PRILOSEC) 3-07 by mouth ity o f 40 mg 11:04: daily. [place] capsule 36 Medical Branch metoprolol Yes 50mg Take 50 mg U nivers succinate 3-07 by mouth ity of XL (TOPROL 11:04: daily. [place] XL) 50 mg 36 Medical 24 hr Branch tablet rOPINIRole Yes 2mg Take 2 mg Un martha (REQUIP) 2 3-07 by mouth 2 ity of mg tablet 11:04: (two) [place] 36 times Medical daily. Branch levothyroxi Yes 125ug Take 125 U nivers ne 3-07 mcg by ity of (SYNTHROID) 11:04: mouth [place] 125 mcg 36 daily. Medical tablet Branch donepezil Yes 10mg Take 10 mg Un martha (ARICEPT) 3-07 by mouth ity of 10 mg 11:04: daily. [place] tablet Medical Branch amLODIPine Yes 5mg Take 5 mg Un martha (NORVASC) 5 3-07 by mouth ity of mg tablet 11:04: daily. [place] [address] Medical Branch lovastatin Yes 20mg Take 20 mg U nivers (MEVACOR) 3-07 by mouth ity of 20 mg 11:04: daily. [place] tablet 36 Medical Branch Donepezil Donepezil No 1{table QD Donepezil HCl [...] MG MG MG Primidone Primidone No Primidone Advair Advair No Advair Devoted Diskus 250 Diskus 250 Diskus 250 Medical mcg-50 mcg-50 mcg-50 Group mcg/dose mcg/dose mcg/dose powder for powder for powder for inhalation inhalation inhalation INHALE 1 INHALE 1 INHALE 1 PUFF BY PUFF BY PUFF BY MOUTH TWICE MOUTH TWICE MOUTH DAILY DAILY TWICE DAILY Potassium Potassium No Potassium Chloride Chloride Chloride Neeta ER Neeta ER Neeta ER Levothyroxi Levothyroxi No Levothyrox ne Sodium ne Sodium ine Sodium Donepezil Donepezil No 1{table QD Donepezil HCl 10 MG HCl 10 MG t} HCl 10 MG buPROPion buPROPion No buPROPion HCl ER (XL) HCl ER (XL) HCl ER (XL) albuterol albuterol No albuterol Devoted sulfate HFA sulfate HFA sulfate Medical 90 90 HFA 90 Group mcg/actuati mcg/actuati mcg/actuat on aerosol on aerosol ion inhaler inhaler aerosol INHALE 2 INHALE 2 inhaler PUFFS BY PUFFS BY INHALE 2 MOUTH EVERY MOUTH EVERY PUFFS BY 6 HOURS 6 HOURS MOUTH EVERY 6 HOURS Flublok Flublok No Flublok Quadrivalen Quadrivalen Quadrivale t t nt Potassium Potassium No Potassium Chloride Chloride Chloride Neeta ER Neeta ER Netea ER Diclofenac Diclofenac No Diclofenac Sodium 1 % Sodium 1 % Sodium 1 % amlodipine amlodipine No amlodipine Devoted 10 mg [...] traMADol traMADol No traMADol HCl HCl HCl amlodipine amlodipine No amlodipine Devoted 5 mg tablet 5 mg tablet 5 mg M edical TAKE 1 TAKE 1 tablet Group TABLET BY TABLET BY TAKE 1 MOUTH EVERY MOUTH EVERY TABLET BY DAY DAY MOUTH EVERY DAY buPROPion buPROPion No buPROPion HCl ER (XL) HCl ER (XL) HCl ER (XL) Lovastatin Lovastatin No QD Lovastatin 20 MG 20 MG 20 MG Furosemide Furosemide No Furosemide Breo Breo No Breo Devoted Ellipta 200 Ellipta 200 Ellipta Medical mcg-25 mcg-25 200 mcg-25 Group mcg/dose mcg/dose mcg/dose powder for powder for powder for inhalation inhalation inhalation TAKE 1 PUFF TAKE 1 PUFF TAKE 1 BY MOUTH BY MOUTH PUFF BY EVERY DAY EVERY DAY MOUTH EVERY DAY Potassium Potassium No Potassium Chloride ER Chloride ER Chloride ER Lomotil Lomotil No Lomotil Gabapentin Gabapentin No Gabapentin bupropion bupropion No bupropion Devoted HCl XL [...] Metoprolol Metoprolol No Metoprolol Succinate Succinate Succinate carvedilol carvedilol No carvedilol Devoted 6.25 mg 6.25 mg 6.25 mg Medica l tablet TAKE tablet TAKE tablet Group 1 TABLET BY 1 TABLET BY TAKE 1 MOUTH TWICE MOUTH TWICE TABLET BY A DAY A DAY MOUTH TWICE A DAY amLODIPine amLODIPine No 1{table QD amLODIPine Besylate 5 Besylate 5 t} Besylate 5 MG MG MG Mupirocin Mupirocin No Mupirocin Calcium Calcium Calcium Spironolact Spironolact No Spironolac one one tone donepezil donepezil No donepezil Devoted 10 mg 10 mg 10 mg Medical tablet TAKE tablet TAKE tablet Group 1 TABLET BY 1 TABLET BY TAKE 1 MOUTH EVERY MOUTH EVERY TABLET BY DAY DAY MOUTH EVERY DAY Escitalopra Escitalopra No 1{table QD Escitalopr m Oxalate m Oxalate t} am Oxalate 20 MG 20 MG 20 MG Pantoprazol Pantoprazol No Pantoprazo e Sodium e Sodium le Sodium escitalopra escitalopra No escitalopr Devoted m 20 mg m 20 mg am 20 mg Medic al tablet TAKE tablet TAKE tablet Group 1 TABLET BY 1 TABLET BY TAKE 1 MOUTH TWICE MOUTH TWICE TABLET BY A DAY A DAY MOUTH TWICE A DAY Clindamycin Clindamycin No Clindamyci HCl HCl n HCl Cephalexin Cephalexin No Cephalexin Ciprofloxac Ciprofloxac No Ciprofloxa in HCl in HCl nataliya HCl famotidine famotidine No famotidine Devoted 20 mg 20 mg 20 mg Medical tablet TAKE tablet TAKE tablet Group 1 TABLET BY 1 TABLET BY TAKE 1 MOUTH EVERY MOUTH EVERY TABLET BY DAY DAY MOUTH EVERY DAY Trelegy Trelegy No Trelegy Ellipta Ellipta Ellipta Lisinopril Lisinopril No 1{table QD Lisinopril 40 MG 40 MG t} 40 MG Gabapentin Gabapentin No Gabapentin gabapentin gabapentin No gabapentin Devoted 300 mg 300 mg 300 mg Medical capsule capsule capsule Group TAKE 1 TAKE 1 TAKE 1 CAPSULE BY CAPSULE BY CAPSULE BY MOUTH TWICE MOUTH TWICE MOUTH A DAY A DAY TWICE A DAY Sulfamethox Sulfamethox No Sulfametho azole-Trime azole-Trime xazole-Tri thoprim thoprim methoprim Carvedilol Carvedilol No Carvedilol Primidone Primidone No Primidone Levothyroxi Levothyroxi No Levothyrox ne Sodium ne Sodium ine Sodium Acetaminoph Acetaminoph No Acetaminop en-Codeine en-Codeine hen-Codein #3 #3 e #3 Famotidine Famotidine No Famotidine ipratropium ipratropium No ipratropiu Devoted bromide 21 bromide 21 m bromide Medical mcg (0.03 mcg (0.03 21 mcg Anand up %) nasal %) nasal (0.03 %) spray USE spray USE nasal SPRAY UP TO SPRAY UP TO spray USE 4 TIMES 4 TIMES SPRAY UP DAILY DAILY TO 4 TIMES DAILY Donepezil Donepezil No 1{table QD Donepezil HCl 10 MG HCl 10 MG t} HCl 10 MG Flublok Flublok No Flublok Quadrivalen Quadrivalen Quadrivale t t nt Potassium Potassium No Potassium Chloride Chloride Chloride Neeta ER Neeta ER Neeta ER levothyroxi levothyroxi No levothyrox Devoted ne 125 mcg ne 125 mcg ine 125 Medical tablet TAKE tablet TAKE mcg tablet Group 1 TABLET BY 1 TABLET BY TAKE 1 MOUTH EVERY MOUTH EVERY TABLET BY DAY DAY MOUTH EVERY DAY Diclofenac Diclofenac No Diclofenac Sodium 1 % Sodium 1 % Sodium 1 % rOPINIRole rOPINIRole No 1{table BID rOPINIRole HCl 2 MG HCl 2 MG t} HCl 2 MG Diclofenac Diclofenac No Diclofenac Sodium 1 % Sodium 1 % Sodium 1 % Albuterol Albuterol No Albuterol Sulfate HFA Sulfate HFA Sulfate HFA lisinopril lisinopril No 1 Q1D lisinopril Devoted 40 mg 40 mg 40 mg Medical tablet Take tablet Take tablet Group 1 tablet 1 tablet Take 1 every day every day tablet by oral by oral every day route. route. by oral route. Chlorhexidi Chlorhexidi No Chlorhexid ne ne ine Gluconate Gluconate Gluconate traMADol traMADol No traMADol HCl HCl HCl buPROPion buPROPion No buPROPion HCl ER (XL) HCl ER (XL) HCl ER (XL) Lovastatin Lovastatin No QD Lovastatin 20 MG 20 MG 20 MG lovastatin lovastatin No lovastatin Devoted 20 mg 20 mg 20 mg Medical tablet TAKE tablet TAKE tablet Group 1 TABLET BY 1 TABLET BY TAKE 1 MOUTH EVERY MOUTH EVERY TABLET BY DAY DAY MOUTH EVERY DAY Furosemide Furosemide No Furosemide Potassium Potassium No Potassium Chloride ER Chloride ER Chloride ER Lomotil Lomotil No Lomotil Gabapentin Gabapentin No Gabapentin metoprolol metoprolol No metoprolol Devoted succinate succinate succinate Medical 50 mg daily 50 mg daily 50 mg Group daily Omeprazole Omeprazole No QD Omeprazole 40 MG 40 MG 40 MG Nitrofurant Nitrofurant No Nitrofuran oin Monohyd oin Monohyd toin Macro Macro Monohyd Macro Metoprolol Metoprolol No Metoprolol Succinate Succinate Succinate amLODIPine amLODIPine No 1{table QD amLODIPine Besylate 5 Besylate 5 t} Besylate 5 MG MG MG omeprazole omeprazole No omeprazole Devoted 40 mg 40 mg 40 mg Medical capsule,del capsule,del capsule,de Group ayed ayed layed release release release TAKE 1 TAKE 1 TAKE 1 CAPSULE BY CAPSULE BY CAPSULE BY MOUTH EVERY MOUTH EVERY MOUTH DAY DAY EVERY DAY Mupirocin Mupirocin No Mupirocin Calcium Calcium Calcium Spironolact Spironolact No Spironolac one one tone Escitalopra Escitalopra No 1{table QD Escitalopr m Oxalate m Oxalate t} am Oxalate 20 MG 20 MG 20 MG potassium potassium No potassium Devoted chloride ER chloride ER chloride Medical 10 mEq 10 mEq ER 10 mEq Group capsule,ext capsule,ext capsule,ex ended ended tended release release release TAKE 1 TAKE 1 TAKE 1 CAPSULE BY CAPSULE BY CAPSULE BY MOUTH EVERY MOUTH EVERY MOUTH DAY DAY EVERY DAY Pantoprazol Pantoprazol No Pantoprazo e Sodium e Sodium le Sodium Clindamycin Clindamycin No Clindamyci HCl HCl n HCl Cephalexin Cephalexin No Cephalexin Ciprofloxac Ciprofloxac No Ciprofloxa in HCl in HCl nataliya HCl primidone primidone No primidone Devoted 50 mg 50 mg 50 mg Medical tablet TAKE tablet TAKE tablet Group 1 TABLET BY 1 TABLET BY TAKE 1 MOUTH MOUTH TABLET BY EVERYDAY AT EVERYDAY AT MOUTH BEDTIME BEDTIME EVERYDAY AT BEDTIME Trelegy Trelegy No Trelegy Ellipta Ellipta Ellipta Lisinopril Lisinopril No 1{table QD Lisinopril 40 MG 40 MG t} 40 MG Gabapentin Gabapentin No Gabapentin Sulfamethox Sulfamethox No Sulfametho azole-Trime azole-Trime xazole-Tri thoprim thoprim methoprim ropinirole ropinirole No ropinirole Devoted 2 mg tablet 2 mg tablet 2 mg M edical TAKE 1 TAKE 1 tablet Group TABLET BY TABLET BY TAKE 1 MOUTH TWICE MOUTH TWICE TABLET BY A DAY A DAY MOUTH TWICE A DAY Carvedilol Carvedilol No Carvedilol Primidone Primidone No Primidone Levothyroxi Levothyroxi No Levothyrox ne Sodium ne Sodium ine Sodium Acetaminoph Acetaminoph No Acetaminop en-Codeine en-Codeine hen-Codein #3 #3 e #3 spironolact spironolact No spironolac Devoted one 25 mg one 25 mg tone 25 mg Medical tablet TAKE tablet TAKE tablet Group 1 TABLET BY 1 TABLET BY TAKE 1 MOUTH EVERY MOUTH EVERY TABLET BY DAY DAY MOUTH EVERY DAY Famotidine Famotidine No Famotidine Donepezil Donepezil No 1{table QD Donepezil HCl 10 MG HCl 10 MG t} HCl 10 MG Flublok Flublok No Flublok Quadrivalen Quadrivalen Quadrivale t t nt Potassium Potassium No Potassium Chloride Chloride Chloride Neeta ER Neeta ER Neeta ER topiramate topiramate No topiramate Devoted 25 mg 25 mg 25 mg Medical tablet TAKE tablet TAKE tablet Group 1 TABLET BY 1 TABLET BY TAKE 1 MOUTH AT MOUTH AT TABLET BY BEDTIME BEDTIME MOUTH AT BEDTIME Diclofenac Diclofenac No Diclofenac Sodium 1 % Sodium 1 % Sodium 1 % rOPINIRole rOPINIRole No 1{table BID rOPINIRole HCl 2 MG HCl 2 MG t} HCl 2 MG Diclofenac Diclofenac No Diclofenac Sodium 1 % Sodium 1 % Sodium 1 % Albuterol Albuterol No Albuterol Sulfate HFA Sulfate HFA Sulfate HFA Trelegy Trelegy No Trelegy Devote d Ellipta 100 Ellipta 100 Ellipta Medical mcg-62.5 mcg-62.5 100 Group mcg-25 mcg mcg-25 mcg mcg-62.5 powder for powder for mcg-25 mcg inhalation inhalation powder for INHALE 1 INHALE 1 inhalation PUFF BY PUFF BY INHALE 1 MOUTH EVERY MOUTH EVERY PUFF BY DAY DAY MOUTH EVERY DAY Chlorhexidi Chlorhexidi No Chlorhexid ne ne ine [...] 5 t} Besylate 5 MG MG MG Omeprazole Omeprazole No QD Omeprazole 40 MG 40 MG 40 MG buPROPion buPROPion No buPROPion HCl ER (XL) HCl ER (XL) HCl ER (XL) Mupirocin Mupirocin No Mupirocin Calcium Calcium Calcium traMADol traMADol No traMADol HCl HCl HCl Metoprolol Metoprolol No Metoprolol Succinate Succinate Succinate Pantoprazol Pantoprazol No Pantoprazo e Sodium e Sodium le Sodium Potassium Potassium No Potassium Chloride Chloride Chloride Neeta ER Neeta ER Neeta ER Diclofenac Diclofenac No Diclofenac Sodium 1 % Sodium 1 % Sodium 1 % Cephalexin Cephalexin No Cephalexin Diclofenac Diclofenac No Diclofenac Sodium 1 % Sodium 1 % Sodium 1 % Donepezil Donepezil No 1{table QD Donepezil HCl 10 MG HCl 10 MG t} HCl 10 MG Lisinopril Lisinopril No 1{table QD Lisinopril 40 MG 40 MG t} 40 MG Lovastatin Lovastatin No QD Lovastatin 20 MG 20 MG 20 MG Furosemide Furosemide No Furosemide Potassium Potassium No Potassium Chloride ER Chloride ER Chloride ER Albuterol Albuterol No Albuterol Sulfate HFA Sulfate HFA Sulfate HFA Sulfamethox Sulfamethox No Sulfametho azole-Trime azole-Trime xazole-Tri thoprim thoprim methoprim Escitalopra Escitalopra No 1{table QD Escitalopr m Oxalate m Oxalate t} am Oxalate 20 MG 20 MG 20 MG Clindamycin Clindamycin No Clindamyci HCl HCl n HCl Flublok Flublok No Flublok Quadrivalen Quadrivalen Quadrivale t t nt Gabapentin Gabapentin No Gabapentin Levothyroxi Levothyroxi No Levothyrox ne Sodium ne Sodium ine Sodium rOPINIRole rOPINIRole No 1{table BID rOPINIRole HCl 2 MG HCl 2 MG t} HCl 2 MG Chlorhexidi Chlorhexidi No Chlorhexid ne ne ine Gluconate Gluconate Gluconate Nitrofurant Nitrofurant No Nitrofuran oin Monohyd oin Monohyd toin Macro Macro Monohyd Macro Lomotil Lomotil No Lomotil Famotidine Famotidine No Famotidine Carvedilol Carvedilol No Carvedilol Acetaminoph Acetaminoph No Acetaminop en-Codeine en-Codeine hen-Codein #3 #3 e #3 Spironolact Spironolact No Spironolac one one tone Primidone Primidone No Primidone Gabapentin Gabapentin No Gabapentin Trelegy Trelegy No Trelegy Ellipta Ellipta Ellipta Ciprofloxac Ciprofloxac No Ciprofloxa in HCl in HCl nataliya HCl Omeprazole Omeprazole No QD Omeprazole 40 MG 40 MG 40 MG Famotidine Famotidine No Famotidine Pantoprazol Pantoprazol No Pantoprazo e Sodium e Sodium le Sodium Carvedilol Carvedilol No Carvedilol Kerendia Kerendia No Kerendia Acetaminoph Acetaminoph No Acetaminop en-Codeine en-Codeine hen-Codein #3 #3 e #3 Sulfamethox Sulfamethox No Sulfametho azole-Trime azole-Trime xazole-Tri thoprim thoprim methoprim Lomotil Lomotil No Lomotil Diclofenac Diclofenac No Diclofenac Sodium 1 % Sodium 1 % Sodium 1 % Escitalopra Escitalopra No 1{table QD Escitalopr m Oxalate m Oxalate t} am Oxalate 20 MG 20 MG 20 MG amLODIPine amLODIPine No 1{table QD amLODIPine Besylate 5 Besylate 5 t} Besylate 5 MG MG MG Halobetasol Halobetasol No Halobetaso Cr & Lactic Cr & Lactic l Cr & Ac Cr Ac Cr Lactic Ac Cr Spironolact Spironolact No Spironolac one one tone Flublok Flublok No Flublok Quadrivalen Quadrivalen Quadrivale t t nt Clindamycin Clindamycin No Clindamyci HCl HCl n HCl Furosemide Furosemide No Furosemide rOPINIRole rOPINIRole No 1{table BID rOPINIRole HCl 2 MG HCl 2 MG t} HCl 2 MG Gabapentin Gabapentin No Gabapentin Chlorhexidi Chlorhexidi No Chlorhexid ne ne ine Gluconate Gluconate Gluconate Mupirocin Mupirocin No Mupirocin Calcium Calcium Calcium Primidone Primidone No Primidone Ciprofloxac Ciprofloxac No Ciprofloxa in HCl in HCl nataliya HCl Cephalexin Cephalexin No Cephalexin Ketoconazol Ketoconazol No Ketoconazo e e le Diclofenac Diclofenac No Diclofenac Sodium 1 % Sodium 1 % Sodium 1 % Potassium Potassium No Potassium Chloride Chloride Chloride Neeta ER Neeta ER Neeta ER Fluocinonid Fluocinonid No Fluocinoni e e de traMADol traMADol No traMADol HCl HCl HCl Albuterol Albuterol No Albuterol Sulfate HFA Sulfate HFA Sulfate HFA Metoprolol Metoprolol No Metoprolol Succinate Succinate Succinate NIFEdipine NIFEdipine No NIFEdipine ER ER ER Nitrofurant Nitrofurant No Nitrofuran oin Monohyd oin Monohyd toin Macro Macro Monohyd Macro Lovastatin Lovastatin No QD Lovastatin 20 MG 20 MG 20 MG Ferrous Ferrous No Ferrous Sulfate Sulfate Sulfate Lisinopril Lisinopril No 1{table QD Lisinopril 40 MG 40 MG t} 40 MG Lisinopril Lisinopril No Lisinopril Donepezil Donepezil No 1{table QD Donepezil HCl 10 MG HCl 10 MG t} HCl 10 MG Potassium Potassium No Potassium Chloride ER Chloride ER Chloride ER Trelegy Trelegy No Trelegy Ellipta Ellipta Ellipta Gabapentin Gabapentin No Gabapentin buPROPion buPROPion No buPROPion HCl ER (XL) HCl ER (XL) HCl ER (XL) Levothyroxi Levothyroxi No Levothyrox ne Sodium ne Sodium ine Sodium Halobetasol Halobetasol No Halobetaso Cr & Lactic Cr & Lactic l Cr & Ac Cr Ac Cr Lactic Ac Cr Famotidine Famotidine No Famotidine Pantoprazol Pantoprazol No Pantoprazo e Sodium e Sodium le Sodium Carvedilol Carvedilol No Carvedilol Omeprazole Omeprazole No QD Omeprazole 40 MG 40 MG 40 MG Diclofenac Diclofenac No Diclofenac Sodium 1 % Sodium 1 % Sodium 1 % Sulfamethox Sulfamethox No Sulfametho azole-Trime azole-Trime xazole-Tri thoprim thoprim methoprim Gabapentin Gabapentin No Gabapentin Diclofenac Diclofenac No Diclofenac Sodium 1 % Sodium 1 % Sodium 1 % Escitalopra Escitalopra No 1{table QD Escitalopr m Oxalate m Oxalate t} am Oxalate 20 MG 20 MG 20 MG amLODIPine amLODIPine No 1{table QD amLODIPine Besylate 5 Besylate 5 t} Besylate 5 MG MG MG Lomotil Lomotil No Lomotil Spironolact Spironolact No Spironolac one one tone Flublok Flublok No Flublok Quadrivalen Quadrivalen Quadrivale t t nt Clindamycin Clindamycin No Clindamyci HCl HCl n HCl Furosemide Furosemide No Furosemide rOPINIRole rOPINIRole No 1{table BID rOPINIRole HCl 2 MG HCl 2 MG t} HCl 2 MG NIFEdipine NIFEdipine No NIFEdipine ER ER ER Chlorhexidi Chlorhexidi No Chlorhexid ne ne ine Gluconate Gluconate Gluconate Mupirocin Mupirocin No Mupirocin Calcium Calcium Calcium Primidone Primidone No Primidone Ciprofloxac Ciprofloxac No Ciprofloxa in HCl in HCl nataliya HCl Cephalexin Cephalexin No Cephalexin Metoprolol Metoprolol No Metoprolol Succinate Succinate Succinate Ketoconazol Ketoconazol No Ketoconazo e e le Potassium Potassium No Potassium Chloride Chloride Chloride Neeta ER Neeta ER Neeta ER Lisinopril Lisinopril No 1{table QD Lisinopril 40 MG 40 MG t} 40 MG Nitrofurant Nitrofurant No Nitrofuran oin Monohyd oin Monohyd toin Macro Macro Monohyd Macro Albuterol Albuterol No Albuterol Sulfate HFA Sulfate HFA Sulfate HFA Fluocinonid Fluocinonid No Fluocinoni e e de traMADol traMADol No traMADol HCl HCl HCl Acetaminoph Acetaminoph No Acetaminop en-Codeine en-Codeine hen-Codein #3 #3 e #3 Lovastatin Lovastatin No QD Lovastatin 20 MG 20 MG 20 MG Ferrous Ferrous No Ferrous Sulfate Sulfate Sulfate Kerendia Kerendia No Kerendia Lisinopril Lisinopril No Lisinopril Donepezil Donepezil No 1{table QD Donepezil HCl 10 MG HCl 10 MG t} HCl 10 MG Potassium Potassium No Potassium Chloride ER Chloride ER Chloride ER Trelegy Trelegy No Trelegy Ellipta Ellipta Ellipta Gabapentin Gabapentin No Gabapentin buPROPion buPROPion No buPROPion HCl ER (XL) HCl ER (XL) HCl ER (XL) Levothyroxi Levothyroxi No Levothyrox ne Sodium ne Sodium ine Sodium Chlorhexidi Chlorhexidi No Chlorhexid ne ne ine [...] Levothyrox ne Sodium ne Sodium ine Sodium Vital Signs Vital Name Observation Time Observation Value Comments Source Systolic blood 2022-08-05 20:00:00 122 mm[Hg] Univer sity of pressure [facility] Diastolic blood 2022-08-05 20:00:00 77 mm[Hg] Unive [facility] Heart rate 2022-08-05 20:00:00 50 /min Universi ty [facility] Respiratory rate 2022-08-05 20:00:00 18 /min [facility] Oxygen saturation in 2022-08-05 20:00:00 94 /min [facility] Arterial blood by [facility] Pulse oximetry Branch Body temperature 2022-08-05 17:24:00 36 Tracee [facility] Body height 2022-08-05 17:24:00 149.9 cm Universi ty [facility] Body weight 2022-08-05 17:24:00 83.915 kg Universi [facility] BMI 2022-08-05 17:24:00 37.37 kg/m2 [facility] height 2022-07-27 13:15:00 59 [in_i] [facility] weight 2022-07-27 13:15:00 188.2 [lb_av] Common [facility] temperature 2022-07-27 13:15:00 97.6 [degF] Common [facility] bmi 2022-07-27 13:15:00 38.01 kg/m2 Common [facility] blood pressure 2022-07-27 13:15:00 125 mm[Hg] [facility] blood pressure 2022-07-27 13:15:00 82 mm[Hg] [facility] height 2022-06-15 13:30:00 59 [in_i] Common [facility] weight 2022-06-15 13:30:00 193 [lb_av] Common [facility] temperature 2022-06-15 13:30:00 98.1 [degF] Common [facility] bmi 2022-06-15 13:30:00 38.98 kg/m2 [facility] blood pressure 2022-06-15 13:30:00 128 mm[Hg] [facility] blood pressure 2022-06-15 13:30:00 76 mm[Hg] [facility] height 2021-10-17 14:30:00 59 [in_i] [facility] weight 2021-10-17 14:30:00 220 [lb_av] [facility] temperature 2021-10-17 14:30:00 97.9 [degF] Common [facility] bmi 2021-10-17 14:30:00 44.43 kg/m2 [facility] blood pressure 2021-10-17 14:30:00 126 mm[Hg] [facility] blood pressure 2021-10-17 14:30:00 74 mm[Hg] [facility] Systolic blood 2020-06-28 19:30:00 180 mm[Hg] Univer sity of [facility] Diastolic blood 2020-06-28 19:30:00 82 mm[Hg] Unive rsity of [facility] Heart rate 2020-06-28 19:30:00 61 /min Universi ty [facility] Respiratory rate 2020-06-28 19:13:00 17 /[facility] 2020-06-28 19:13:00 96 /min [facility] Arterial blood by [facility] Pulse oximetry Branch Body temperature 2020-06-28 16:54:00 36.33 Tracee [facility] 2020-06-28 16:54:00 95.255 kg Universi ty [facility] BMI 2020-06-28 16:54:00 42.41 kg/m2 Universi ty [facility] Systolic blood 2020-06-28 19:30:00 180 mm[Hg] Univer sity of [facility] Diastolic blood 2020-06-28 19:30:00 82 mm[Hg] Unive [facility] Heart rate 2020-06-28 19:30:00 61 /min Universi ty [facility] Respiratory rate 2020-06-28 19:13:00 17 /min [facility] Oxygen saturation in 2020-06-28 19:13:00 96 /min University of Arterial blood by [facility] Pulse oximetry Branch Body temperature 2020-06-28 16:54:00 36.33 Tracee [facility] Body weight 2020-06-28 16:54:00 95.255 kg [facility] BMI 2020-06-28 16:54:00 42.41 kg/m2 [facility] Systolic blood 2020-02-19 19:23:00 160 mm[Hg] Univer sity of pressure [facility] Diastolic blood 2020-02-19 19:23:00 84 mm[Hg] Unive rsity of pressure [facility] Heart rate 2020-02-19 19:23:00 63 /min [facility] Body temperature 2020-02-19 19:23:00 36.39 Tracee [facility] Respiratory rate 2020-02-19 19:23:00 15 /min [facility] Body height 2020-02-19 19:23:00 149.9 cm [facility] Body weight 2020-02-19 19:23:00 99.791 kg [facility] BMI 2020-02-19 19:23:00 44.43 kg/m2 [facility] Oxygen saturation in 2020-02-19 19:23:00 96 /min University of Arterial blood by [facility] Pulse oximetry Branch Systolic blood 2020-02-19 19:23:00 160 mm[Hg] Univer sity of pressure [facility] Diastolic blood 2020-02-19 19:23:00 84 mm[Hg] Unive rsity of pressure [facility] Heart rate 2020-02-19 19:23:00 63 /min [facility] Body temperature 2020-02-19 19:23:00 36.39 Tracee [facility] Respiratory rate 2020-02-19 19:23:00 15 /min [facility] Body height 2020-02-19 19:23:00 149.9 cm [facility] Body weight 2020-02-19 19:23:00 99.791 kg [facility] BMI 2020-02-19 19:23:00 44.43 kg/m2 [facility] Oxygen saturation in 2020-02-19 19:23:00 96 /min University of Arterial blood by [facility] Pulse oximetry Branch Systolic blood 2019-12-10 04:00:00 202 mm[Hg] Univer sity of pressure [facility] Diastolic blood 2019-12-10 04:00:00 92 mm[Hg] Unive rsity of pressure [facility] Heart rate 2019-12-10 04:00:00 75 /min [facility] Respiratory rate 2019-12-10 04:00:00 18 /min Univ [facility] Oxygen saturation in 2019-12-10 04:00:00 98 /min University of Arterial blood by [facility] Pulse oximetry Branch Body temperature 2019-12-10 02:51:13 36.39 Tracee [facility] Body height 2019-12-10 02:28:00 162.6 cm [facility] Body weight 2019-12-10 02:28:00 104.327 kg [facility] BMI 2019-12-10 02:28:00 39.48 kg/m2 [facility] Systolic blood 2019-12-10 04:00:00 202 mm[Hg] Univer sity of pressure [facility] Diastolic blood 2019-12-10 04:00:00 92 mm[Hg] Unive rsity of pressure [facility] Heart rate 2019-12-10 04:00:00 75 /min [facility] Respiratory rate 2019-12-10 04:00:00 18 /min Univ [facility] Oxygen saturation in 2019-12-10 04:00:00 98 /min University of Arterial blood by [facility] Pulse oximetry Branch Body temperature 2019-12-10 02:51:13 36.39 Tracee [facility] Body height 2019-12-10 02:28:00 162.6 cm [facility] Body weight 2019-12-10 02:28:00 104.327 kg [facility] BMI 2019-12-10 02:28:00 39.48 kg/m2 [facility] Systolic (mm Hg) 2021-11-02 20:14:00 Jose Francisco [facility] Diastolic (mm Hg) 2021-11-02 20:14:00 [facility] [place] Heart Rate 2021-11-02 20:14:00 [facility] Respitory Rate 2021-11-02 20:14:00 [facility] Height 2021-11-02 20:14:00 149.86 cm [facility] [place] Weight 2021-11-02 20:14:00 [facility] [place] BMI Calculated 2021-11-02 20:14:00 [facility] [place] Systolic (mm Hg) 2020-12-24 18:59:00 Jose Francisco rial [facility] Diastolic (mm Hg) 2020-12-24 18:59:00 [facility] [place] Heart Rate 2020-12-24 18:59:00 [facility] Respitory Rate 2020-12-24 18:59:00 [facility] [place] Height 2020-12-24 18:59:00 149.86 cm [facility] Weight 2020-12-24 18:59:00 [facility] [place] BMI Calculated 2020-12-24 18:59:00 [facility] [place] Systolic (mm Hg) 2020-09-06 20:47:00 Jose Francisco rial [facility] Diastolic (mm Hg) 2020-09-06 20:47:00 [facility] Temperature Oral (F) 2020-09-06 18:26:00 99.7 F [facility] Heart Rate 2020-09-06 18:26:00 [facility] [place] Respitory Rate 2020-09-06 18:26:00 [facility] [place] Systolic (mm Hg) 2020-09-06 18:26:00 Jose Francisco rial [facility] Diastolic (mm Hg) 2020-09-06 18:26:00 [facility] [place] Temperature Oral (F) 2020-09-06 14:09:00 98.1 F [facility] Heart Rate 2020-09-06 14:09:00 [facility] [place] Respitory Rate 2020-09-06 14:09:00 [facility] [place] Systolic (mm Hg) 2020-09-06 14:09:00 Jose Francisco rial [facility] Diastolic (mm Hg) 2020-09-06 14:09:00 [facility] [place] Temperature Oral (F) 2020-09-06 10:00:00 98.1 F [facility] [place] Heart Rate 2020-09-06 10:00:00 [facility] [place] Respitory Rate 2020-09-06 10:00:00 [facility] Temperature Oral (F) 2020-09-06 06:30:00 97.5 F [facility] [place] Heart Rate 2020-09-06 06:30:00 [facility] [place] Respitory Rate 2020-09-06 06:30:00 [facility] Systolic (mm Hg) 2020-09-06 06:30:00 Jose Francisco [facility] [place] Diastolic (mm Hg) 2020-09-06 06:30:00 [facility] Temperature Oral (F) 2020-09-06 02:45:00 97.8 F [facility] Heart Rate 2020-09-06 02:45:00 [facility] [place] Respitory Rate 2020-09-06 02:45:00 [facility] [place] Systolic (mm Hg) 2020-09-06 02:45:00 Jose Francisco [facility] [place] Diastolic (mm Hg) 2020-09-06 02:45:00 [facility] Temperature Oral (F) 2020-09-05 22:00:00 97 F [facility] Heart Rate 2020-09-05 22:00:00 [facility] [place] Respitory Rate 2020-09-05 22:00:00 [facility] [place] Systolic (mm Hg) 2020-09-05 22:00:00 Jose Francisco [facility] [place] Diastolic (mm Hg) 2020-09-05 22:00:00 [facility] Height 2020-09-05 02:46:00 124.46 cm [facility] BMI Calculated 2020-09-05 02:46:00 [facility] [place] Weight 2020-09-05 02:46:00 [facility] [place] Systolic (mm Hg) 2020-05-25 18:41:00 Jose Francisco [facility] [place] Diastolic (mm Hg) 2020-05-25 18:41:00 [facility] [place] Heart Rate 2020-05-25 18:41:00 [facility] [place] Respitory Rate 2020-05-25 18:41:00 [facility] Temperature Oral (F) 2020-05-25 18:41:00 98.6 F [facility] [place] Height 2020-05-25 18:41:00 149.86 cm [facility] Weight 2020-05-25 18:41:00 [facility] BMI Calculated 2020-05-25 18:41:00 [facility] Systolic (mm Hg) 2020-03-24 14:12:00 Jose Francisco rial [facility] Diastolic (mm Hg) 2020-03-24 14:12:00 [facility] [place] Heart Rate 2020-03-24 14:12:00 [facility] [place] Height 2020-03-24 14:12:00 149.86 cm [facility] [place] Weight 2020-03-24 14:12:00 [facility] [place] BMI Calculated 2020-03-24 14:12:00 [facility] Systolic (mm Hg) 2019-07-24 19:29:00 Jose Francisco [facility] [place] Diastolic (mm Hg) 2019-07-24 19:29:00 [facility] [place] Heart Rate 2019-07-24 19:29:00 [facility] [place] Respitory Rate 2019-07-24 19:29:00 [facility] [place] Height 2019-07-24 19:29:00 149.86 cm [facility] Weight 2019-07-24 19:29:00 [facility] [place] BMI Calculated 2019-07-24 19:29:00 [facility] [place] Systolic (mm Hg) 2019-05-21 19:25:00 Jose Francisco rial [facility] Diastolic (mm Hg) 2019-05-21 19:25:00 [facility] Heart Rate 2019-05-21 19:25:00 [facility] Respitory Rate 2019-05-21 19:25:00 [facility] Height 2019-05-21 19:25:00 149.86 cm [facility] Weight 2019-05-21 19:25:00 [facility] BMI Calculated 2019-05-21 19:25:00 [facility] Height 2019-03-21 19:45:00 147.32 cm [facility] [place] Weight 2019-03-21 19:45:00 [facility] [place] BMI Calculated 2019-03-21 19:45:00 [facility] [place] Respitory Rate 2019-03-21 19:45:00 [facility] Heart Rate 2019-03-21 19:45:00 [facility] Systolic (mm Hg) 2019-03-21 19:45:00 Jose Francisco [facility] [place] Diastolic (mm Hg) 2019-03-21 19:45:00 [facility] [place] Height 2019-02-21 20:01:00 149.86 cm [facility] Weight 2019-02-21 20:01:00 [facility] BMI Calculated 2019-02-21 20:01:00 Memori [facility] Respitory Rate 2019-02-21 20:01:00 Carlotta Samano Heart Rate 2019-02-21 20:01:00 Nancy Carter Systolic (mm Hg) 2019-02-21 20:01:00 Jose Francisco Carter Diastolic (mm Hg) 2019-02-21 20:01:00 Chao danopablo [facility] Procedures Procedure Date / Time Performed Performing Clinician Sourc e XR CHEST 1 VW 2022-08-05 17:51:[address] [facility] TROPONIN I 2022-08-05 17:31:[address] [facility] COMP. METABOLIC PANEL 2022-08-05 17:31:00 Carly Sinclair [facility] ([id number]) [facility] CBC WITH DIFF 2022-08-05 17:31:[address] [facility] RAPID INFLUENZA A/B 2022-08-05 17:31:00 Carly Sinclair [facility] N-TERMINAL PRO-BNP 2022-08-05 17:31:00 Carly Sinclair [facility] COVID-19 (ID NOW 2022-08-05 17:31:00 Carly Sinclair [facility] RAPID TESTING) [facility] CONSENT/REFUSAL FOR 2022-08-05 17:11:04 [facility] TREATMENT XR FOREARM 2 VW RIGHT 2020-06-28 17:49:01 Sariah Miller [facility] XR SHOULDER 2+ VW 2020-06-28 17:49:01 Sariah Miller [facility] CONSENT/REFUSAL FOR 2020-02-19 18:58:01 [facility] TREATMENT XR TIBIA FIBULA 2 VW 2019-12-10 03:20:47 Timi Aguirre [facility] Encounters Start End Encounter Admission Attending Care Care Encounter Source Date/Time Date/Time Type Type Clinicians Facility Department ID 2022-07-26 [facility] [id number] Common 16:10:00 [id number] [facility] 2022-06-16 Outpatient [facility] [id number] Common 09:53:02 [id number] [facility] 2021-10-26 Outpatient [facility] [id number] Common 13:00:46 [id number] [facility] 2021-10-26 Outpatient STLMLC STLMLC [id number] Common 12:25:20 [id number] [facility] 2021-10-26 Outpatient STLMLC STLMLC [id number] Common 12:16:59 [id number] [facility] 2021-10-05 Inpatient NIC Sanderson, HCAWU ADMI [id number] 11:00:[address] [facility] 2021-07-[address] [facility] [id number] Univers 19:46[facility] [facility] [id number] Univers 21:53:33 [facility] 2022-09-29 2022-09-29 Inpatient NIC Sanderson, HCAWU SUGL [id number] 11:00:00 11:00:[address] [facility] 2022-09-05 2022-09-05 (TEL) STLMLC STLMLC [id number] Co mmon 00:00:00 00:00:00 [facility] 2022-08-05 2022-08-05 [facility] [id number] Univers 12:20:00 15:34:00 [facility] 2022-08-05 2022-08-05 [facility] [id number] Univers 12:20:00 15:34:00 Carly AMIN 350.1.13.10 ity [facility] 4.2.7.2.686 [facility] [id number] [place] [id number] [place] 2022-08-03 2022-08-03 Outpatient Canales_M DMG DMG [id number] [facility] 00:00:00 00:00:00 1103 [facility] 2022-07-27 2022-07-27 OFFICE STLMLC STLMLC [id number] Co mmon 00:00:00 00:00:00 VISIT [facility] ESTAB PT - CHI LEVEL 4 [facility] 2022-06-15 2022-06-15 OFFICE STLMLC STLMLC [id number] Co mmon 00:00:00 00:00:00 VISIT [facility] ESTAB PT - CHI LEVEL 4 [facility] 2022-06-12 2022-06-12 CAV Allegra 2.16.840. 2.16.840.1. CLAC [id number] [facility] 20:00:00 21:00:00 Valentín [id number]. FE5 [facility] [id number] 2022-04-28 2022-04-28 Ambulatory nullFlavo MNA [id number] Memoria 19:00:00 19:00:00 Pre-Reg r Neurology 14 l Lana Cunhaann 2022-04-28 2022-04-28 Ambulatory nullFlavo MNA [id number] Memoria 19:00:00 19:00:00 Pre-Reg r Neurology 14 l Lana Carter 2022-04-28 2022-04-28 Outpatient MHIE MHIE [id number] Memoria 14:00:00 14:00:00 14 l Raul 2022-04-28 2022-04-28 Outpatient YURIDIA Garcia MISCHER [id number] 14:00:00 14:00:00 Jeffrey 14 [place] 2022-04-14 2022-04-14 Outpatient Canales_M DMG DMG [id number] [facility] 07:15:00 07:15:00 0715 [facility] 2021-12-15 2021-12-15 (TEL) STLMLC STLMLC [id number] Co mmon 00:00:00 00:00:00 [facility] 2021-12-08 2021-12-08 (TEL) STLMLC STLMLC [id number] Co mmon 00:00:00 00:00:00 [facility] 2021-11-29 2021-11-29 OL DIG E/M STLMLC STLMLC [id number] Common 00:00:00 00:00:00 SVC 5-10 Spiri t MIN - CHI [facility] 2021-11-21 2021-11-21 (TEL) STLMLC STLMLC [id number] Co mmon 00:00:00 00:00:00 [facility] 2021-11-02 2021-11-03 Outpatient nullFlavo MNA [id number] Memoria 19:30:00 05:59:59 r Neurology 13 lavelle Cunhaann 2021-11-02 2021-11-03 Outpatient nullFlavo MNA [id number] Memoria 19:30:00 05:59:59 r Neurology 13 lavelle Cunhaann 2021-11-02 2021-11-02 [facility] [id number] 13:30:00 23:59:59 Jeffrey 13 [place] 2021-11-02 2021-11-02 Ambulatory nullFlavo MNA [id number] Memoria 19:00:00 19:00:00 Pre-Reg r Neurology 12 lavelle Cunhaann 2021-11-02 2021-11-02 Ambulatory nullFlavo MNA [id number] Memoria 19:00:00 19:00:00 Pre-Reg r Neurology 12 l Lana Cunhaann 2021-11-02 2021-11-02 Outpatient MHIE MHIE [id number] Memoria 13:30:00 13:30:00 13 lavelle Carter 2021-11-02 2021-11-02 Outpatient MHIE MHIE [id number] Memoria 13:00:00 13:00:00 12 lavelle Carter 2021-11-02 2021-11-02 Outpatient YURIDIA Garcia SAMSCHANJEL [id number] 13:00:00 13:00:00 Jeffrey 12 [place] 2021-10-26 2021-10-26 (TEL) STLMLC STLMLC [id number] Co mmon 00:00:00 00:00:00 [facility] 2021-10-17 2021-10-17 OFFICE STLMLC STLMLC [id number] Co mmon 00:00:00 00:00:00 VISIT [facility] ESTAB PT - CHI LEVEL 4 [facility] 2021-10-03 2021-10-03 ESTRELLA Dinh 2.16.840. 2.16.840.1. CLAC [id number] [facility] 20:00:00 21:30:00 Valentín [id number]. [id number]. [facility] [id number] 2021-08-29 2021-08-29 Outpatient Canales_M DMG DMG [id number] [facility] 12:42:00 12:42:00 1129 [facility] l [facility] 2021-06-28 2021-06-28 Ambulatory nullFlavo MNA [id number] Memoria 19:00:00 19:00:00 Pre-Reg r Neurology 11 l Daniels [place] 2021-06-28 2021-06-28 Ambulatory nullFlavo MNA [id number] Memoria 19:00:00 19:00:00 Pre-Reg r Neurology 11 l Lana Cunhaann 2021-06-28 2021-06-28 Outpatient [facility]ANC[facility]CO [id number] 14:00:00 11 l Raul 2021-06-28 2021-06-28 Outpatient Jose MISCHER MISCHER [id number] 14:00:00 14:00:00 Jeffrey Rob Shafer 2021-05-16 2021-05-16 Outpatient STLMLC STLMLC [id number] Common 00:00:00 00:00:00 [facility] 2021-05-10 2021-05-10 Outpatient STLMLC STLMLC [id number] Common 00:00:00 00:00:00 [facility] 2021-04-12 2021-04-12 Outpatient STLMLC STLMLC [id number] Common 00:00:00 00:00:00 [facility] 2021-03-28 2021-03-28 Outpatient Olivia-Mbayo VFP VFP [id number] [facility] 05:32:00 05:32:00 _A_AH 19021 [facility] Practic e 2021-03-07 2021-03-07 Outpatient STLMLC STLMLC [id number] Common 00:00:00 00:00:00 [facility] 2021-02-08 2021-02-08 Outpatient STLMLC STLMLC [id number] Common 00:00:00 00:00:00 [facility] 2021-01-28 2021-01-30 Outside nullFlavo MNA [id number] Memoria 14:05:24 04:59:59 Medical r Neurology 01 l Records Lana Carter 2021-01-28 2021-01-30 Outside nullFlavo MNA [id number] Memoria 14:05:24 04:59:59 Medical r Neurology 01 l Records Lana Carter 2021-01-28 2021-01-29 Outpatient MHMISCHER MHMISCHER [id number] 09:05:24 23:59:59 01 2021-01-18 2021-01-18 Outpatient Olivia-Echoo VFP VFP [id number] Village 01:43:00 01:43:00 _A_AH 19412 Family Practic e 2021-01-14 2021-01-14 Outpatient Canales_M DMG SHIRA [id number] [facility] 05:20:00 05:20:00 0416 Medica l Group 2021-01-14 2021-01-14 Caitlyn BAEZA MA - [id number] D evoted 00:00:00 00:00:00 Radha Butcher l [facility] 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 2021-01-14 2021-01-14 Outpatient Jerez, DMG SHIRA [id number] 00:00:00 00:00:00 Caitlyn [id number] Radha [id number] 2021-01-13 2021-01-13 Outpatient Canales_M DMG SHIRAG [id number] [facility] 05:35:00 05:35:00 0415 [facility] l Group 2021-01-12 2021-01-12 Outpatient Canales_M DMG DMG [id number] [facility] 04:16:00 04:16:00 0414 [facility] l [facility] 2020-12-24 2020-12-25 Outpatient nullFlavo MNA [id number] Memoria 18:45:00 04:59:59 r Neurology 10 l Lana Carter 2020-12-24 2020-12-25 Outpatient nullFlavo MNA [id number] Memoria 18:45:00 04:59:59 r Neurology 10 l Lana Carter 2020-12-24 2020-12-24 Outpatient GOSIA GarciaSCHER GOSIASCHER [id number] 13:45:00 23:59:59 Jeffrey Lupis Shafer 2020-12-24 2020-12-24 Outpatient MHIE IE [id number] Memoria 13:45:00 13:45:00 10 l Raul 2020-12-09 2020-12-09 Outpatient STLMLC STLMLC [id number] Common 00:00:00 00:00:00 [facility] 2020-12-09 2020-12-09 Outpatient STLMLC STLMLC [id number] Common 00:00:00 00:00:00 [facility] 2020-11-30 2020-11-30 Outpatient STLMLC STLMLC [id number] Common 00:00:00 00:00:00 [facility] 2020-11-23 2020-11-25 Outside nullFlavo MNA [id number] Memoria 17:49:36 05:59:59 Medical r Neurology 00 l Records Lana Carter 2020-11-23 2020-11-25 Outside nullFlavo MNA [id number] Memoria 17:49:36 05:59:59 Medical r Neurology 00 l Records Lana Carter 2020-11-23 2020-11-24 [facility] [id number] 11:49:36 23:59:59 2020-10-28 2020-10-28 Outpatient STLMLC STLMLC [id number] Common 00:00:00 00:00:00 [facility] 2020-10-25 2020-10-25 Outpatient STLMLC STLMLC [id number] Common 00:00:00 00:00:00 [facility] 2020-10-11 2020-10-11 Ambulatory nullFlavo MNA [id number] Memoria 21:15:00 21:15:00 Pre-Reg r Neurology 09 l Danielsalbin Carter 2020-10-11 2020-10-11 Ambulatory nullFlavo MNA [id number] Memoria 21:15:00 21:15:00 Pre-Reg r Neurology 09 l Lana Carter 2020-10-11 2020-10-11 Outpatient MHIE MHIE [id number] Memoria 15:15:00 15:15:00 09 lavelle Carter 2020-10-11 2020-10-11 Outpatient [facility]IDIA [facility] [id number] 15:15:00 15:15:00 Jeffrey 09 [place] 2020-09-29 2020-09-29 [facility] [id number] Common 00:00:00 00:00:00 [facility] 2020-09-05 2020-09-06 Observatio nullFlavo [facility] [id number] Memoria 02:36:00 21:43:00 n ekta Cun[address]ul[address] 2020-09-05 2020-09-06 Observatio nullFlavo [facility] [id number] Memoria 02:36:00 21:43:00 n ekta Carter 40 [facility] 2020-09-04 2020-09-06 Outpatient Nae [facility] [id number] 20:36:00 15:43:00 Vincent Sage 2020-09-04 2020-09-04 Outpatient Nae [facility] [id number] 20:36:00 20:36:00 Vincent Sage 2020-08-24 2020-08-24 Ambulatory nullFlavo MNA [id number] Memoria 19:15:00 19:15:00 Pre-Reg r Neurology 08 l Lana [place] 2020-08-24 2020-08-24 Ambulatory nullFlavo MNA [id number] Memoria 19:15:00 19:15:00 Pre-Reg r Neurology 08 l Lana Raul 2020-08-24 2020-08-24 Outpatient MHIE MHIE [id number] Memoria 13:15:00 13:15:00 08 lavelle CunhaRaul 2020-08-24 2020-08-24 Outpatient [facility]IDIA [facility] [id number] 13:15:00 13:15:00 Jeffrey 08 [place] 2020-06-28 2020-06-[address] [facility] [id number] [facility] 11:51:00 15:02:00 Sariah Amin 350.1.13.10 i ty of [place] 4.2.7.2.686 [facility] [id number] [address] 2020-06-28 2020-06-[address] [facility] [id number] 11:51:00 15:02:00 Sariah Amin 350.1.13.10 [place] 4.2.7.2.686 [place] [id number] [facility] 2020-05-25 2020-05-26 Outpatient nullFlavo MNA [id number] Memoria 18:45:00 04:59:59 r Neurology 07 l Daniels Raul 2020-05-25 2020-05-26 Outpatient nullFlavo MNA [id number] Memoria 18:45:00 04:59:59 r Neurology 07 l Lana [place] 2020-05-25 2020-05-25 Outpatient GOSIA GarciaSCHANJEL MISCHER [id number] 13:45:00 23:59:59 Jeffrey 07 [place] 2020-05-25 2020-05-25 Outpatient MHIE MHIE [id number] Memoria 13:45:00 13:45:00 07 l [place] 2020-03-30 2020-03-30 Ambulatory nullFlavo MNA [id number] Memoria 20:15:00 20:15:00 Pre-Reg r Neurology 05 l Daniels [place] 2020-03-30 2020-03-30 Ambulatory nullFlavo MNA [id number] Memoria 20:15:00 20:15:00 Pre-Reg r Neurology 05 l Daniels Raul 2020-03-30 2020-03-30 Outpatient MHIE MHIE [id number] Memoria 15:15:00 15:15:00 05 l Raul 2020-03-30 2020-03-30 Outpatient GOSIA GarciaSCHANJEL MISCHER [id number] 15:15:00 15:15:00 Jeffrey 05 [place] 2020-03-24 2020-03-25 Outpatient nullFlavo MNA [id number] Memoria 14:00:00 04:59:59 r Neurology 06 l Daniels [place] 2020-03-24 2020-03-25 Outpatient nullFlavo MNA [id number] Memoria 14:00:00 04:59:59 r Neurology 06 lavelle Cunhaann 2020-03-24 2020-03-24 Outpatient GOSIA GarciaSCHER GOSIASCHER [id number] 09:00:00 23:59:59 Jeffrey 06 [place] 2020-03-24 2020-03-24 Outpatient MHIE IE [id number] Memoria 09:00:00 09:00:00 06 l [place] 2020-02-19 2020-02-19 Emergency [facility] [id number] [facility] 14:18:56 16:04:00 Maria Luisa Amin 350.1.13.10 ity [facility] 4.2.7.2.686 [facility] [id number] [address] 2020-02-19 2020-02-19 Emergency [facility] [id number] [id number] 14:18:56 16:04:00 Maria Luisa Amin 350.1.13.[address] [place] [address] [place] [address] [id number] [facility] 2019-12-11 2019-12-11 Outpatient Olivia-Mbayo VFP P [address] [place] [address] 06:48:00 06:48:00 _A_AH 20650 Family Practic e 2019-12-11 2019-12-11 Outpatient Olivia-Mbayo VFP VFP [id number] 06:48:00 06:48:00 _A_AH 04421 Family Practic e 2019-12-09 2019-12-10 Emergency [facility] [id number] Univers 21:28:34 00:05:00 Timi Amin 350.1.13.10 i ty [facility] 4.2.7.[address] [place] [id number] 2019-12-09 2019-12-10 Emergency X [facility] ERT [id number] Univers 21:28:34 00:05:00 TIMI dominique [facility] 2019-12-09 2019-12-10 Emergency [facility] [id number] [id number] 21:28:34 00:05:00 Timi [place] 350.1.13.10 [place] 4.2.7.2.686 [place] [id number] 2019-11-19 2019-11-19 Outpatient Olivia-Molly VFP [facility] [id number] [facility] 07:16:00 07:16:00 _A_AH 72532 Family Practic e 2019-09-16 2019-09-16 Ambulatory nullFlavo MNA [id number] Memoria 21:00:00 21:00:00 Pre-Reg r Neurology 04 l Lana [place] 2019-09-16 2019-09-16 Ambulatory nullFlavo MNA [id number] Memoria 21:00:00 21:00:00 Pre-Reg r Neurology 04 l Daniels [place] 2019-09-16 2019-09-16 Outpatient MHIE MHIE [id number] Memoria 15:00:00 15:00:00 04 lavelle [place] 2019-09-16 2019-09-16 Outpatient [facility]IDIA [facility] [id number] 15:00:00 15:00:00 Jeffrey Sonia [place] 2019-07-24 2019-07-25 Outpatient nullFlavo MNA [id number] Memoria 19:15:00 04:59:59 r Neurology 03 lavelle Daniels [place] 2019-07-24 2019-07-25 Outpatient nullFlavo MNA [id number] Memoria 19:15:00 04:59:59 r Neurology 03 lavelle Lana Raul 2019-07-24 2019-07-24 Outpatient YURIDIA Garcia [facility] [id number] 14:15:00 23:59:59 Jeffrey Kings [place] 2019-07-24 2019-07-24 Outpatient MHIE MHIE [id number] Memoria 14:15:00 14:15:00 03 lavelle [place] 2019-05-21 2019-05-22 Outpatient nullFlavo MNA [id number] Memoria 19:30:00 04:59:59 r Neurology 02 lavelle Daniels Raul 2019-05-21 2019-05-22 Outpatient nullFlavo MNA [id number] Memoria 19:30:00 04:59:59 r Neurology 02 Lana Raul 2019-05-21 2019-05-21 Outpatient YURIDIA Garcia MISCH [id number] 14:30:00 23:59:59 Jeffrey 02 [facility] 2019-05-21 2019-05-21 Outpatient MHIE MHIE [id number] Memoria 14:30:00 14:30:00 02 lavelle [place] 2019-03-21 2019-03-22 Outpatient nullFlavo MNA [id number] Memoria 19:30:00 04:59:59 [facility] [place] 2019-03-21 2019-03-22 Outpatient nullFlavo MNA [id number] Memoria 19:30:00 04:59:59 [facility] [place] 2019-03-21 2019-03-21 [id number] 14:30:00 23:59:59 Jeffrey [place] 2019-03-21 2019-03-21 Outpatient MHIE MHIE [id number] Memoria 14:30:00 14:30:00 01 [facility] 2019-02-21 2019-02-22 Outpatient nullFlavo MNA [id number] Memoria 20:00:00 04:59:59 r Neurology 00 l [facility] 2019-02-21 2019-02-22 Outpatient nullFlavo MNA [id number] Memoria 20:00:00 04:59:59 r Neurology 00 l [facility] 2019-02-21 2019-02-21 Outpatient SahilPRUDENCIO [facility] [id number] 15:00:00 23:59:59 Jeffrey 00 [place] Results Test Description Test Time Test Comments Results Result Comments Source [facility] 2020-09-06 10:24:00 Test Item Value Reference Range Interpretation Comme nts Glucose Lvl (test code = Glucose Lvl) 66 70-99 [facility] [id number] 10:24:00 Test Item Value Reference Range Interpretation Comments BUN (test code = BUN) 19 7- [facility] [id number] 10:24:00 Test Item Value Reference Range Interpretation Comments Creatinine Lvl (test code = Creatinine 1.82 0.50-1.40 Lvl) [facility] [id number] 10:24:00 Test Item Value Reference Range Interpretation Comments Sodium Lvl (test code = Sodium Lvl) 139 135-145 [place] [id number] 10:24:00 Test Item Value Reference Range Interpretation Comments Potassium Lvl (test code = Potassium 4.2 3.5-5.1 Lvl) [place] 607050-12-07 10:24:00 Test Item Value Reference Range Interpretation Comments Chloride Lvl (test code = Chloride Lvl) 105 95-109 [place] 607050-12-07 10:24:00 Test Item Value Reference Range Interpretation Comments CO2 (test code = CO2) 28 24-32 [place] [address]-12-07 10:24:00 Test Item Value Reference Range Interpretation Comments Calcium Lvl (test code = Calcium Lvl) 8.2 8.5-10.5 [place] 607050-12-07 10:24:00 Test Item Value Reference Range Interpretation Comments AGAP (test code = AGAP) 10.2 10.0-20.0 [place] 607050-12-07 10:24:00 Test Item Value Reference Range Interpretation Comments eGFR (test code = eGFR) 26 [place] 789010-12-07 10:24:00 Test Item Value Reference Range Interpretation Comments Segs (test code = Segs) 70.6 45.0-75.0 [place] [address]-12-07 10:24:00 Test Item Value Reference Range Interpretation Comments Lymphocytes (test code = Lymphocytes) 13.2 20.0-40.0 [place] [address]-12-07 10:24:00 Test Item Value Reference Range Interpretation Comments Monocytes (test code = Monocytes) 10.9 2.0-12.0 [place] [address]-12-07 10:24:00 Test Item Value Reference Range Interpretation Comments Eosinophils (test code = 4.6 See_Comment [A utomated message] The Eosinophils) system which ge nerated this result tra nsmitted reference range : <=4.0. The reference r christiano was not used to int erpret this result as normal/abnormal . [place] [address]-12-07 10:24:00 Test Item Value Reference Range Interpretation Comments Basophils (test code = 0.7 See_Comment [Aut omated message] The Basophils) system which ge nerated this result tra nsmitted reference range : <=1.0. The reference r christiano was not used to int erpret this result as normal/abnormal . [id number] 10:24:00 Test Item Value Reference Range Interpretation Comments Neutrophils # (test code = Neutrophils 5.3 1.5-8.1 #) [facility] [id number] 10:24:00 Test Item Value Reference Range Interpretation Comments Lymphocytes # (test code = Lymphocytes 1.0 1.0-5.5 #) [facility] Tayl[id number] 10:24:00 Test Item Value Reference Range Interpretation Comments Monocytes # (test code 0.8 See_Comment [Aut omated message] The = Monocytes #) system which generated this result tra nsmitted reference range : <=0.8. The reference r christiano was not used to int erpret this result as normal/abnormal . [facility] [id number] 10:24:00 Test Item Value Reference Range Interpretation Comments Eosinophils # (test code 0.3 See_Comment [A utomated message] The = Eosinophils #) system whic h generated this result tra nsmitted reference range : <=0.5. The reference r christiano was not used to int erpret this result as normal/abnormal . [facility] [id number] 10:24:00 Test Item Value Reference Range Interpretation Comments Basophils # (test code 0.1 See_Comment [Aut omated message] The = Basophils #) system which generated this result tra nsmitted reference range : <=0.2. The reference r christiano was not used to int erpret this result as normal/abnormal . [facility] TaylorSchbaxcBFGEYZFJZO7657-65-10 10:24:00 Test Item Value Reference Range Interpretation Comments WBC (test code = WBC) 7.5 3.7-10.4 [facility] [id number] 10:24:00 Test Item Value Reference Range Interpretation Comments RBC (test code = RBC) 3.85 4.20-5.40 [place] 789010-12-07 10:24:00 Test Item Value Reference Range Interpretation Comments Hgb (test code = Hgb) 10.6 12.0-16.0 [place] [address]-12-07 10:24:00 Test Item Value Reference Range Interpretation Comments Hct (test code = Hct) 32.1 36.0-48.0 [place] 789010-12-07 10:24:00 Test Item Value Reference Range Interpretation Comments MCV (test code = MCV) 83.5 80.0-98.0 [place] 789010-12-07 10:24:00 Test Item Value Reference Range Interpretation Comments MCH (test code = MCH) 27.7 pg 27.0-31.0 [place] 789010-12-07 10:24:00 Test Item Value Reference Range Interpretation Comments MCHC (test code = MCHC) 33.1 32.0-36.0 [place] [address]-12-07 10:24:00 Test Item Value Reference Range Interpretation Comments RDW (test code = RDW) 16.8 11.5-14.5 [place] 789010-12-07 10:24:00 Test Item Value Reference Range Interpretation Comments Platelet (test code = Platelet) 185 133-450 [facility] [id number] 10:24:00 Test Item Value Reference Range Interpretation Comments MPV (test code = MPV) 8.4 7.4-10.4 [facility]2020-12-07 10:24:00 Test Item Value Reference Range Interpretation Comments Glucose Lvl (test code = Glucose Lvl) 66 70-99 [facility]2020-12-07 10:24:00 Test Item Value Reference Range Interpretation Comments BUN (test code = BUN) 19 7-22 [facility]2020-12-07 10:24:00 Test Item Value Reference Range Interpretation Comments Creatinine Lvl (test code = Creatinine 1.82 0.50-1.40 Lvl) [facility]2020-12-07 10:24:00 Test Item Value Reference Range Interpretation Comments Sodium Lvl (test code = Sodium Lvl) 139 135-145 [facility]2020-12-07 10:24:00 Test Item Value Reference Range Interpretation Comments Potassium Lvl (test code = Potassium 4.2 3.5-5.1 Lvl) [facility]2020-12-07 10:24:00 Test Item Value Reference Range Interpretation Comments Chloride Lvl (test code = Chloride Lvl) 105 95-109 [facility]2020-12-07 10:24:00 Test Item Value Reference Range Interpretation Comments CO2 (test code = CO2) 28 24-32 [facility]2020-12-07 10:24:00 Test Item Value Reference Range Interpretation Comments Calcium Lvl (test code = Calcium Lvl) 8.2 8.5-10.5 [facility]2020-12-07 10:24:00 Test Item Value Reference Range Interpretation Comments AGAP (test code = AGAP) 10.2 10.0-20.0 [facility]2020-12-07 10:24:00 Test Item Value Reference Range Interpretation Comments eGFR (test code = eGFR) 26 [facility] [id number] 10:24:00 Test Item Value Reference Range Interpretation Comments Segs (test code = Segs) 70.6 45.0-75.0 [facility] [id number] 10:24:00 Test Item Value Reference Range Interpretation Comments Lymphocytes (test code = Lymphocytes) 13.2 20.0-40.0 [facility] [id number] 10:24:00 Test Item Value Reference Range Interpretation Comments Monocytes (test code = Monocytes) 10.9 2.0-12.0 [facility] TaylorOobqpchGBDNKOUTST5006-10-27 10:24:00 Test Item Value Reference Range Interpretation Comments Eosinophils (test code = 4.6 See_Comment [A utomated message] The Eosinophils) system which ge nerated this result tra nsmitted reference range : <=4.0. The reference r christiano was not used to int erpret this result as normal/abnormal . [facility] TaylorFbxjghhJRIDJRXVJR3470-68-06 10:24:00 Test Item Value Reference Range Interpretation Comments Basophils (test code = 0.7 See_Comment [Aut omated message] The Basophils) system which ge nerated this result tra nsmitted reference range : <=1.0. The reference r christiano was not used to int erpret this result as normal/abnormal . [facility] TaylorDrknjnpWBMSISPBPW9795-21-68 10:24:00 Test Item Value Reference Range Interpretation Comments Neutrophils # (test code = Neutrophils 5.3 1.5-8.1 #) [facility] TaylorLzlysloTNDRXUOLAO1179-61-90 10:24:00 Test Item Value Reference Range Interpretation Comments Lymphocytes # (test code = Lymphocytes 1.0 1.0-5.5 #) [facility] TaylorEzceirrNCBTSLNVVO2978-09-90 10:24:00 Test Item Value Reference Range Interpretation Comments Monocytes # (test code 0.8 See_Comment [Aut omated message] The = Monocytes #) system which generated this result tra nsmitted reference range : <=0.8. The reference r christiano was not used to int erpret this result as normal/abnormal . [facility] TaylorVgpwxifWDOHMXAFXU0574-27-61 10:24:00 Test Item Value Reference Range Interpretation Comments Eosinophils # (test code 0.3 See_Comment [A utomated message] The = Eosinophils #) system whic h generated this result tra nsmitted reference range : <=0.5. The reference r christiano was not used to int erpret this result as normal/abnormal . [facility] TaylorEofoqtgHHQYCEFKAW6146-09-08 10:24:00 Test Item Value Reference Range Interpretation Comments Basophils # (test code 0.1 See_Comment [Aut omated message] The = Basophils #) system which generated this result tra nsmitted reference range : <=0.2. The reference r christiano was not used to int erpret this result as normal/abnormal . [facility] TaylorZgwskldQSZYZGLUMX5219-54-33 10:24:00 Test Item Value Reference Range Interpretation Comments WBC (test code = WBC) 7.5 3.7-10.4 [facility] TaylorOpfjpjeMOBGQTFHUC7571-78-19 10:24:00 Test Item Value Reference Range Interpretation Comments RBC (test code = RBC) 3.85 4.20-5.40 [facility] TaylorJfkdhqyUJJCFQJTYA4771-69-73 10:24:00 Test Item Value Reference Range Interpretation Comments Hgb (test code = Hgb) 10.6 12.0-16.0 [facility] TaylorUxwxlueSFLSPWWEZU2528-61-14 10:24:00 Test Item Value Reference Range Interpretation Comments Hct (test code = Hct) 32.1 36.0-48.0 [facility] TaylorFkvhptqXDGZRUWIUF3412-88-76 10:24:00 Test Item Value Reference Range Interpretation Comments MCV (test code = MCV) 83.5 80.0-98.0 [facility] TaylorSdznzcrEZTHGFBGQZ1385-18-69 10:24:00 Test Item Value Reference Range Interpretation Comments MCH (test code = MCH) 27.7 pg 27.0-31.0 [facility] TaylorCedcjcfKNBOMKXROL0468-16-76 10:24:00 Test Item Value Reference Range Interpretation Comments MCHC (test code = MCHC) 33.1 32.0-36.0 [facility] TaylorZzhlqobUMKZRZOBSC0745-00-31 10:24:00 Test Item Value Reference Range Interpretation Comments RDW (test code = RDW) 16.8 11.5-14.5 [facility] TaylorVnahjtxVQUYOXRADD3842-41-46 10:24:00 Test Item Value Reference Range Interpretation Comments Platelet (test code = Platelet) 185 133-450 [facility] TaylorZhfomiaLYZZZTMRPD7853-77-41 10:24:00 Test Item Value Reference Range Interpretation Comments MPV (test code = MPV) 8.4 7.4-10.4 [facility]2020-12-07 10:24:00 Test Item Value Reference Range Interpretation Comments Glucose Lvl (test code = Glucose Lvl) 66 70-99 [facility]2020-12-07 10:24:00 Test Item Value Reference Range Interpretation Comments BUN (test code = BUN) 19 7-22 [place] 607050-12-07 10:24:00 Test Item Value Reference Range Interpretation Comments Creatinine Lvl (test code = Creatinine 1.82 0.50-1.40 Lvl) [facility]2020-12-07 10:24:00 Test Item Value Reference Range Interpretation Comments Sodium Lvl (test code = Sodium Lvl) 139 135-145 [facility]2020-12-07 10:24:00 Test Item Value Reference Range Interpretation Comments Potassium Lvl (test code = Potassium 4.2 3.5-5.1 Lvl) [facility]2020-12-07 10:24:00 Test Item Value Reference Range Interpretation Comments Chloride Lvl (test code = Chloride Lvl) 105 95-109 [facility]2020-12-07 10:24:00 Test Item Value Reference Range Interpretation Comments CO2 (test code = CO2) 28 24-32 [facility]2020-12-07 10:24:00 Test Item Value Reference Range Interpretation Comments Calcium Lvl (test code = Calcium Lvl) 8.2 8.5-10.5 [facility]2020-12-07 10:24:00 Test Item Value Reference Range Interpretation Comments AGAP (test code = AGAP) 10.2 10.0-20.0 [facility]2020-12-07 10:24:00 Test Item Value Reference Range Interpretation Comments eGFR (test code = eGFR) 26 [facility] TaylorSxnkcksAMOJAWCTTL5642-74-17 10:24:00 Test Item Value Reference Range Interpretation Comments Segs (test code = Segs) 70.6 45.0-75.0 [facility] TaylorApsdjneVCLGRTYQJL3534-61-29 10:24:00 Test Item Value Reference Range Interpretation Comments Lymphocytes (test code = Lymphocytes) 13.2 20.0-40.0 [facility] TaylorCqajaqjWBMZHEFXRB7079-84-46 10:24:00 Test Item Value Reference Range Interpretation Comments Monocytes (test code = Monocytes) 10.9 2.0-12.0 [facility] TaylorNnkuhlcAHICBRPCJZ3364-69-09 10:24:00 Test Item Value Reference Range Interpretation Comments Eosinophils (test code = 4.6 See_Comment [A utomated message] The Eosinophils) system which ge nerated this result tra nsmitted reference range : <=4.0. The reference r christiano was not used to int erpret this result as normal/abnormal . [facility] TaylorLzfcfwoNHJCQBWANE3514-85-68 10:24:00 Test Item Value Reference Range Interpretation Comments Basophils (test code = 0.7 See_Comment [Aut omated message] The Basophils) system which ge nerated this result tra nsmitted reference range : <=1.0. The reference r christiano was not used to int erpret this result as normal/abnormal . [facility] TaylorElmwsswRQOWQXAVLB7557-82-94 10:24:00 Test Item Value Reference Range Interpretation Comments Neutrophils # (test code = Neutrophils 5.3 1.5-8.1 #) [facility] TaylorSjeabuuHLHCVZQQLY9017-75-28 10:24:00 Test Item Value Reference Range Interpretation Comments Lymphocytes # (test code = Lymphocytes 1.0 1.0-5.5 #) [place] [address]-12-07 10:24:00 Test Item Value Reference Range Interpretation Comments Monocytes # (test code 0.8 See_Comment [Aut omated message] The = Monocytes #) system which generated this result tra nsmitted reference range : <=0.8. The reference r christiano was not used to int erpret this result as normal/abnormal . [place] 789010-12-07 10:24:00 Test Item Value Reference Range Interpretation Comments Eosinophils # (test code 0.3 See_Comment [A utomated message] The = Eosinophils #) system whic h generated this result tra nsmitted reference range : <=0.5. The reference r christiano was not used to int erpret this result as normal/abnormal . [facility] TaylorDykgbxyQENKPPQJDE5382-75-11 10:24:00 Test Item Value Reference Range Interpretation Comments Basophils # (test code 0.1 See_Comment [Aut omated message] The = Basophils #) system which generated this result tra nsmitted reference range : <=0.2. The reference r christiano was not used to int erpret this result as normal/abnormal . [facility] TaylorIvivxpoWMIMATSYWY7794-39-81 10:24:00 Test Item Value Reference Range Interpretation Comments WBC (test code = WBC) 7.5 3.7-10.4 [facility] TaylorMqhabvaEERIKXXZUD8006-88-26 10:24:00 Test Item Value Reference Range Interpretation Comments RBC (test code = RBC) 3.85 4.20-5.40 [facility] TaylorGpyqjlcZAWQACJOPR4170-96-90 10:24:00 Test Item Value Reference Range Interpretation Comments Hgb (test code = Hgb) 10.6 12.0-16.0 [facility] TaylorUrsqaeiDIHMSOAYYK0066-87-72 10:24:00 Test Item Value Reference Range Interpretation Comments Hct (test code = Hct) 32.1 36.0-48.0 [facility] TaylorUvrprxtGIDDQMFNFS0905-39-20 10:24:00 Test Item Value Reference Range Interpretation Comments MCV (test code = MCV) 83.5 80.0-98.0 [facility] TaylorAosgabnDEZMZURNMB9724-08-08 10:24:00 Test Item Value Reference Range Interpretation Comments MCH (test code = MCH) 27.7 pg 27.0-31.0 [facility] TaylorEehmlqjFFYYLEPZCJ0299-66-02 10:24:00 Test Item Value Reference Range Interpretation Comments MCHC (test code = MCHC) 33.1 32.0-36.0 [facility] TaylorXgxakziMHRELZXSUX9068-96-23 10:24:00 Test Item Value Reference Range Interpretation Comments RDW (test code = RDW) 16.8 11.5-14.5 [facility] TaylorOuulvgmRJVPQOLAHV9386-87-26 10:24:00 Test Item Value Reference Range Interpretation Comments Platelet (test code = Platelet) 185 133-450 [facility]rapevineFpnzrfeNZMSHMKGTS1843-14-51 10:24:00 Test Item Value Reference Range Interpretation Comments MPV (test code = MPV) 8.4 7.4-10.4 [facility]2020-12-06 09:53:13 Test Item Value Reference Range Interpretation Comments Magnesium Lvl (test code = Magnesium 2.2 1.8-2.4 Lvl) [place] 607050-12-06 09:53:13 Test Item Value Reference Range Interpretation Comments Phosphorus (test code = Phosphorus) 2.9 2.5-4.5 [place] 607050-12-06 09:53:13 Test Item Value Reference Range Interpretation Comments Glucose Lvl (test code = Glucose Lvl) 102 70-99 [place] 607050-12-06 09:53:13 Test Item Value Reference Range Interpretation Comments BUN (test code = BUN) 17 7-22 [place] 607050-12-06 09:53:13 Test Item Value Reference Range Interpretation Comments Creatinine Lvl (test code = Creatinine 1.51 0.50-1.40 Lvl) [place] 607050-12-06 09:53:13 Test Item Value Reference Range Interpretation Comments Sodium Lvl (test code = Sodium Lvl) 140 135-145 [facility]2020-12-06 09:53:13 Test Item Value Reference Range Interpretation Comments Potassium Lvl (test code = Potassium 3.5 3.5-5.1 Lvl) [facility]2020-12-06 09:53:13 Test Item Value Reference Range Interpretation Comments Chloride Lvl (test code = Chloride Lvl) 106 95-109 [place] 607050-12-06 09:53:13 Test Item Value Reference Range Interpretation Comments CO2 (test code = CO2) 29 24-32 [place] 607050-12-06 09:53:13 Test Item Value Reference Range Interpretation Comments Calcium Lvl (test code = Calcium Lvl) 8.3 8.5-10.5 [place] 607050-12-06 09:53:13 Test Item Value Reference Range Interpretation Comments AGAP (test code = AGAP) 8.5 10.0-20.0 [place] 607050-12-06 09:53:13 Test Item Value Reference Range Interpretation Comments eGFR (test code = eGFR) 33 [place] [address]-12-06 09:53:13 Test Item Value Reference Range Interpretation Comments WBC (test code = WBC) 8.7 3.7-10.4 [place] [address]-12-06 09:53:13 Test Item Value Reference Range Interpretation Comments RBC (test code = RBC) 3.96 4.20-5.40 [place] [address]-12-06 09:53:13 Test Item Value Reference Range Interpretation Comments Hgb (test code = Hgb) 10.7 12.0-16.0 [place] [address]-12-06 09:53:13 Test Item Value Reference Range Interpretation Comments Hct (test code = Hct) 32.8 36.0-48.0 [place] [address]-12-06 09:53:13 Test Item Value Reference Range Interpretation Comments MCV (test code = MCV) 83.0 80.0-98.0 [place] [address]-12-06 09:53:13 Test Item Value Reference Range Interpretation Comments MCH (test code = MCH) 26.9 pg 27.0-31.0 [place] [address]-12-06 09:53:13 Test Item Value Reference Range Interpretation Comments MCHC (test code = MCHC) 32.4 32.0-36.0 [place] [address]-12-06 09:53:13 Test Item Value Reference Range Interpretation Comments RDW (test code = RDW) 16.5 11.5-14.5 [place] [address]-12-06 09:53:13 Test Item Value Reference Range Interpretation Comments Platelet (test code = Platelet) 157 133-450 [place] [address]-12-06 09:53:13 Test Item Value Reference Range Interpretation Comments MPV (test code = MPV) 7.5 7.4-10.4 [place] [address]-12-06 09:53:13 Test Item Value Reference Range Interpretation Comments Neutrophils # (test code = Neutrophils 7.2 1.5-8.1 #) [place] [address]-12-06 09:53:13 Test Item Value Reference Range Interpretation Comments Lymphocytes # (test code = Lymphocytes 0.9 1.0-5.5 #) [facility] TaylorDwldqanTBYFPWFYPX0085-81-87 09:53:13 Test Item Value Reference Range Interpretation Comments Monocytes # (test code 0.5 See_Comment [Aut omated message] The = Monocytes #) system which generated this result tra nsmitted reference range : <=0.8. The reference r christiano was not used to int erpret this result as normal/abnormal . [facility] TaylorOxiqkviYJYSHFYHCL7152-89-70 09:53:13 Test Item Value Reference Range Interpretation Comments Basophils # (test code 0.1 See_Comment [Aut omated message] The = Basophils #) system which generated this result tra nsmitted reference range : <=0.2. The reference r christiano was not used to int erpret this result as normal/abnormal . [facility] TaylorCthndhvRLLSBWRXIH7845-56-61 09:53:13 Test Item Value Reference Range Interpretation Comments Segs (test code = Segs) 83.0 45.0-75.0 [place] 789010-12-06 09:53:13 Test Item Value Reference Range Interpretation Comments Bands (test code = 0.0 See_Comment [Automat ed message] The Bands) system which ge nerated this result transmit sheba reference range : <=11.0. The reference r christiano was not used to interpr et this result as edy l/abnormal. [facility] TaylorRcdxpiwGTEQHTTFUM3026-12-96 09:53:13 Test Item Value Reference Range Interpretation Comments Lymphocytes (test code = Lymphocytes) 10.0 20.0-40.0 [place] 789010-12-06 09:53:13 Test Item Value Reference Range Interpretation Comments Monocytes (test code = Monocytes) 6.0 2.0-12.0 [place] 789010-12-06 09:53:13 Test Item Value Reference Range Interpretation Comments Basophils (test code = 1.0 See_Comment [Aut omated message] The Basophils) system which ge nerated this result tra nsmitted reference range : <=1.0. The reference r christiano was not used to int erpret this result as normal/abnormal . [place] 789010-12-06 09:53:13 Test Item Value Reference Range Interpretation Comments Atypical Lymphs (test code = Atypical 0.0 Lymphs) [place] [address]-12-06 09:53:13 Test Item Value Reference Range Interpretation Comments RBC Morph (test code = Normal (09/05/20 3:53 RBC Morph) AM) [place] [address]-12-06 09:53:13 Test Item Value Reference Range Interpretation Comments Plt Morph (test code = Normal (09/05/20 3:53 Plt Morph) AM) [place] [address]-12-06 09:53:13 Test Item Value Reference Range Interpretation Comments Magnesium Lvl (test code = Magnesium 2.2 1.8-2.4 Lvl) [address]12-06 09:53:13 Test Item Value Reference Range Interpretation Comments Phosphorus (test code = Phosphorus) 2.9 2.5-4.5 [place] [address]-12-06 09:53:13 Test Item Value Reference Range Interpretation Comments Glucose Lvl (test code = Glucose Lvl) 102 70-99 [place] [address]-12-06 09:53:13 Test Item Value Reference Range Interpretation Comments BUN (test code = BUN) 17 7-22 [place] [address]-12-06 09:53:13 Test Item Value Reference Range Interpretation Comments Creatinine Lvl (test code = Creatinine 1.51 0.50-1.40 Lvl) [place] [address]-12-06 09:53:13 Test Item Value Reference Range Interpretation Comments Sodium Lvl (test code = Sodium Lvl) 140 135-145 [place] [address]-12-06 09:53:13 Test Item Value Reference Range Interpretation Comments Potassium Lvl (test code = Potassium 3.5 3.5-5.1 Lvl) [place] [address]-12-06 09:53:13 Test Item Value Reference Range Interpretation Comments Chloride Lvl (test code = Chloride Lvl) 106 95-109 [place] [address]-12-06 09:53:13 Test Item Value Reference Range Interpretation Comments CO2 (test code = CO2) 29 24-32 [place] [address]-12-06 09:53:13 Test Item Value Reference Range Interpretation Comments Calcium Lvl (test code = Calcium Lvl) 8.3 8.5-10.5 [place] [address]-12-06 09:53:13 Test Item Value Reference Range Interpretation Comments AGAP (test code = AGAP) 8.5 10.0-20.0 [facility]2020-12-06 09:53:13 Test Item Value Reference Range Interpretation Comments eGFR (test code = eGFR) 33 [place] [address]-12-06 09:53:13 Test Item Value Reference Range Interpretation Comments WBC (test code = WBC) 8.7 3.7-10.4 [place] [address]-12-06 09:53:13 Test Item Value Reference Range Interpretation Comments RBC (test code = RBC) 3.96 4.20-5.40 [place] [address]-12-06 09:53:13 Test Item Value Reference Range Interpretation Comments Hgb (test code = Hgb) 10.7 12.0-16.0 [place] [address]-12-06 09:53:13 Test Item Value Reference Range Interpretation Comments Hct (test code = Hct) 32.8 36.0-48.0 [place] [address]-12-06 09:53:13 Test Item Value Reference Range Interpretation Comments MCV (test code = MCV) 83.0 80.0-98.0 [place] [address]-12-06 09:53:13 Test Item Value Reference Range Interpretation Comments MCH (test code = MCH) 26.9 pg 27.0-31.0 [facility] TaylorPnmenxdMFZHDTFVIG4204-36-52 09:53:13 Test Item Value Reference Range Interpretation Comments MCHC (test code = MCHC) 32.4 32.0-36.0 [facility] TaylorMknazxwTHARJHXBWO1663-35-59 09:53:13 Test Item Value Reference Range Interpretation Comments RDW (test code = RDW) 16.5 11.5-14.5 [place] [address]-12-06 09:53:13 Test Item Value Reference Range Interpretation Comments Platelet (test code = Platelet) 157 133-450 [place] [address]-12-06 09:53:13 Test Item Value Reference Range Interpretation Comments MPV (test code = MPV) 7.5 7.4-10.4 [place] [address]-12-06 09:53:13 Test Item Value Reference Range Interpretation Comments Neutrophils # (test code = Neutrophils 7.2 1.5-8.1 #) [place] [address]-12-06 09:53:13 Test Item Value Reference Range Interpretation Comments Lymphocytes # (test code = Lymphocytes 0.9 1.0-5.5 #) [place] 789010-12-06 09:53:13 Test Item Value Reference Range Interpretation Comments Monocytes # (test code 0.5 See_Comment [Aut omated message] The = Monocytes #) system which generated this result tra nsmitted reference range : <=0.8. The reference r christiano was not used to int erpret this result as normal/abnormal . [place] [address]-12-06 09:53:13 Test Item Value Reference Range Interpretation Comments Basophils # (test code 0.1 See_Comment [Aut omated message] The = Basophils #) system which generated this result tra nsmitted reference range : <=0.2. The reference r christiano was not used to int erpret this result as normal/abnormal . [facility] TaylorGqmsrcuTDXGYTKNMI9284-04-59 09:53:13 Test Item Value Reference Range Interpretation Comments Segs (test code = Segs) 83.0 45.0-75.0 [place] [address]-12-06 09:53:13 Test Item Value Reference Range Interpretation Comments Bands (test code = 0.0 See_Comment [Automat ed message] The Bands) system which ge nerated this result transmit sheba reference range : <=11.0. The reference r christiano was not used to interpr et this result as edy l/abnormal. [facility] TaylorZphhhabSYZPZSGYDK3024-69-25 09:53:13 Test Item Value Reference Range Interpretation Comments Lymphocytes (test code = Lymphocytes) 10.0 20.0-40.0 [place] [address]-12-06 09:53:13 Test Item Value Reference Range Interpretation Comments Monocytes (test code = Monocytes) 6.0 2.0-12.0 [place] [address]-12-06 09:53:13 Test Item Value Reference Range Interpretation Comments Basophils (test code = 1.0 See_Comment [Aut omated message] The Basophils) system which ge nerated this result tra nsmitted reference range : <=1.0. The reference r christiano was not used to int erpret this result as normal/abnormal . [place] [address]-12-06 09:53:13 Test Item Value Reference Range Interpretation Comments Atypical Lymphs (test code = Atypical 0.0 Lymphs) [address]12-06 09:53:13 Test Item Value Reference Range Interpretation Comments RBC Morph (test code = Normal (09/05/20 3:53 RBC Morph) AM) [address]12-06 09:53:13 Test Item Value Reference Range Interpretation Comments Plt Morph (test code = Normal (09/05/20 3:53 Plt Morph) AM) [place] [address]-12-06 09:53:13 Test Item Value Reference Range Interpretation Comments Magnesium Lvl (test code = Magnesium 2.2 1.8-2.4 Lvl) [address]12-06 09:53:13 Test Item Value Reference Range Interpretation Comments Phosphorus (test code = Phosphorus) 2.9 2.5-4.[address]12-06 09:53:13 Test Item Value Reference Range Interpretation Comments Glucose Lvl (test code = Glucose Lvl) 102 70-[address]12-06 09:53:13 Test Item Value Reference Range Interpretation Comments BUN (test code = BUN) 17 7-[address]12-06 09:53:13 Test Item Value Reference Range Interpretation Comments Creatinine Lvl (test code = Creatinine 1.51 0.50-1.40 Lvl) [address]12-06 09:53:13 Test Item Value Reference Range Interpretation Comments Sodium Lvl (test code = Sodium Lvl) 140 135-145 [place] [address]-12-06 09:53:13 Test Item Value Reference Range Interpretation Comments Potassium Lvl (test code = Potassium 3.5 3.5-5.1 Lvl) [address]12-06 09:53:13 Test Item Value Reference Range Interpretation Comments Chloride Lvl (test code = Chloride Lvl) 106 95-109 [place] [address]-12-06 09:53:13 Test Item Value Reference Range Interpretation Comments CO2 (test code = CO2) 29 24-32 [address]12-06 09:53:13 Test Item Value Reference Range Interpretation Comments Calcium Lvl (test code = Calcium Lvl) 8.3 8.5-10.5 [facility]2020-12-06 09:53:13 Test Item Value Reference Range Interpretation Comments AGAP (test code = AGAP) 8.5 10.0-20.0 [facility]2020-12-06 09:53:13 Test Item Value Reference Range Interpretation Comments eGFR (test code = eGFR) 33 [place] 789010-12-06 09:53:13 Test Item Value Reference Range Interpretation Comments WBC (test code = WBC) 8.7 3.7-10.4 [place] [address]-12-06 09:53:13 Test Item Value Reference Range Interpretation Comments RBC (test code = RBC) 3.96 4.20-5.40 [place] [address]-12-06 09:53:13 Test Item Value Reference Range Interpretation Comments Hgb (test code = Hgb) 10.7 12.0-16.0 [place] [address]-12-06 09:53:13 Test Item Value Reference Range Interpretation Comments Hct (test code = Hct) 32.8 36.0-48.0 [place] [address]-12-06 09:53:13 Test Item Value Reference Range Interpretation Comments MCV (test code = MCV) 83.0 80.0-98.0 [place] [address]-12-06 09:53:13 Test Item Value Reference Range Interpretation Comments MCH (test code = MCH) 26.9 pg 27.0-31.0 [place] [address]-12-06 09:53:13 Test Item Value Reference Range Interpretation Comments MCHC (test code = MCHC) 32.4 32.0-36.0 [place] [address]-12-06 09:53:13 Test Item Value Reference Range Interpretation Comments RDW (test code = RDW) 16.5 11.5-14.5 [place] [address]-12-06 09:53:13 Test Item Value Reference Range Interpretation Comments Platelet (test code = Platelet) 157 133-450 [place] [address]-12-06 09:53:13 Test Item Value Reference Range Interpretation Comments MPV (test code = MPV) 7.5 7.4-10.4 [place] [address]-12-06 09:53:13 Test Item Value Reference Range Interpretation Comments Neutrophils # (test code = Neutrophils 7.2 1.5-8.1 #) [facility] TaylorAizcovrDOQKWOTPRF1481-94-88 09:53:13 Test Item Value Reference Range Interpretation Comments Lymphocytes # (test code = Lymphocytes 0.9 1.0-5.5 #) [facility] TaylorIcwoqrpJWYDEOGGZQ7687-09-29 09:53:13 Test Item Value Reference Range Interpretation Comments Monocytes # (test code 0.5 See_Comment [Aut omated message] The = Monocytes #) system which generated this result tra nsmitted reference range : <=0.8. The reference r christiano was not used to int erpret this result as normal/abnormal . [facility] TaylorWocfltmFSPCKAUEWQ3492-70-22 09:53:13 Test Item Value Reference Range Interpretation Comments Basophils # (test code 0.1 See_Comment [Aut omated message] The = Basophils #) system which generated this result tra nsmitted reference range : <=0.2. The reference r christiano was not used to int erpret this result as normal/abnormal . [facility] TaylorYedmrmhMUNACMEJFY9725-39-74 09:53:13 Test Item Value Reference Range Interpretation Comments Segs (test code = Segs) 83.0 45.0-75.0 [place] [address]-12-06 09:53:13 Test Item Value Reference Range Interpretation Comments Bands (test code = 0.0 See_Comment [Automat ed message] The Bands) system which ge nerated this result transmit sheba reference range : <=11.0. The reference r christiano was not used to interpr et this result as edy l/abnormal. [facility] TaylorOfxzzddRGRWKPFEGO6265-12-64 09:53:13 Test Item Value Reference Range Interpretation Comments Lymphocytes (test code = Lymphocytes) 10.0 20.0-40.0 [place] [address]-12-06 09:53:13 Test Item Value Reference Range Interpretation Comments Monocytes (test code = Monocytes) 6.0 2.0-12.0 [place] [address]-12-06 09:53:13 Test Item Value Reference Range Interpretation Comments Basophils (test code = 1.0 See_Comment [Aut omated message] The Basophils) system which ge nerated this result tra nsmitted reference range : <=1.0. The reference r christiano was not used to int erpret this result as normal/abnormal . [facility] GrapevineMlhdpghUDJTFWHCNZ0872-04-65 09:53:13 Test Item Value Reference Range Interpretation Comments Atypical Lymphs (test code = Atypical 0.0 Lymphs) [facility] TaylorUdhvgawZCKAKUXAFI7855-65-41 09:53:13 Test Item Value Reference Range Interpretation Comments RBC Morph (test code = Normal (09/05/20 3:53 RBC Morph) AM) [facility]YBDEENTYEB0306-10-81 09:53:13 Test Item Value Reference Range Interpretation Comments Plt Morph (test code = Normal (09/05/20 3:53 Plt Morph) AM) [facility] GrapevineCjcfoesMWBYTHDFXP4830-50-16 09:53:00 Test Item Value Reference Range Interpretation Comments Coronavirus (COVID-19) Not Detected (09/05/20 JONATHAN (test code = 3:53 AM) Coronavirus (COVID-19) JONATHAN) [place] 325990-12-06 09:53:00 Test Item Value Reference Range Interpretation Comments Coronavirus (COVID-19) Not Detected (09/05/20 JONATHAN (test code = 3:53 AM) Coronavirus (COVID-19) JONATHAN) [facility] GrapevineMsksgedBNYUFTUEBB4562-30-76 09:53:00 Test Item Value Reference Range Interpretation Comments Coronavirus (COVID-19) Not Detected (09/05/20 JONATHAN (test code = 3:53 AM) Coronavirus (COVID-19) JONATHAN) [facility] G[facility]vineCARDIAC [id number] 04:34:00 Test Item Value Reference Range Interpretation Comments Troponin-I (test code no gt See_Comment [Auto mated message] The = Troponin-I) system which g enerated this result transmit sheba reference range : <=0.40. The reference r christiano was not used to interpr et this result as edy l/abnormal. [facility] Grapevineetechies.in [id number] 04:34:00 Test Item Value Reference Range Interpretation Comments Glucose Lvl (test code = Glucose Lvl) 125 70-99 [facility]vineetechies.in [id number] 04:34:00 Test Item Value Reference Range Interpretation Comments BUN (test code = BUN) 17 7-22 [facility]vineetechies.in SVBAX1489-39-46 04:34:00 Test Item Value Reference Range Interpretation Comments Creatinine Lvl (test code = Creatinine 1.51 0.50-1.40 Lvl) [place] 607050-12-06 04:34:00 Test Item Value Reference Range Interpretation Comments Sodium Lvl (test code = Sodium Lvl) 142 135-145 [place] [address]-12-06 04:34:00 Test Item Value Reference Range Interpretation Comments Potassium Lvl (test code = Potassium 4.0 3.5-5.1 Lvl) [place] 607050-12-06 04:34:00 Test Item Value Reference Range Interpretation Comments Chloride Lvl (test code = Chloride Lvl) 108 95-109 [place] 607050-12-06 04:34:00 Test Item Value Reference Range Interpretation Comments CO2 (test code = CO2) 30 24-32 [place] 607050-12-06 04:34:00 Test Item Value Reference Range Interpretation Comments Calcium Lvl (test code = Calcium Lvl) 7.8 8.5-10.5 [place] 607050-12-06 04:34:00 Test Item Value Reference Range Interpretation Comments AGAP (test code = AGAP) 8.0 10.0-20.0 [place] 607050-12-06 04:34:00 Test Item Value Reference Range Interpretation Comments eGFR (test code = eGFR) 33 [place] 789010-12-06 04:34:00 Test Item Value Reference Range Interpretation Comments WBC X 10x3 (test code = WBC X 10x3) 9.7 3.7-10.4 [place] 789010-12-06 04:34:00 Test Item Value Reference Range Interpretation Comments RBC X 10x6 (test code = RBC X 10x6) 3.96 4.20-5.40 [place] [address]-12-06 04:34:00 Test Item Value Reference Range Interpretation Comments Hgb (test code = Hgb) 10.6 12.0-16.0 [place] [address]-12-06 04:34:00 Test Item Value Reference Range Interpretation Comments Hct (test code = Hct) 32.6 36.0-48.0 [place] [address]-12-06 04:34:00 Test Item Value Reference Range Interpretation Comments MCV (test code = MCV) 82.3 80.0-98.0 [facility] TaylorCgbmwfuGIXCQETOAZ0968-98-27 04:34:00 Test Item Value Reference Range Interpretation Comments MCH (test code = MCH) 26.6 pg 27.0-31.0 [facility] TaylorFusvxxhKEIFUGHEWB1244-51-15 04:34:00 Test Item Value Reference Range Interpretation Comments MCHC (test code = MCHC) 32.4 32.0-36.0 [facility] TaylorNsltmmuMPAUGTGWYT5978-92-74 04:34:00 Test Item Value Reference Range Interpretation Comments RDW (test code = RDW) 16.8 11.5-14.5 [facility] TaylorSqdnbuoKMHMTQALWG5556-71-54 04:34:00 Test Item Value Reference Range Interpretation Comments Platelet (test code = Platelet) 178 133-450 [facility] TaylorHiugpukANWELIHQGR5059-57-10 04:34:00 Test Item Value Reference Range Interpretation Comments MPV (test code = MPV) 8.0 7.4-10.4 [facility] TaylorKffwyufAIXJTCYCEW2343-93-96 04:34:00 Test Item Value Reference Range Interpretation Comments PT (test code = PT) 14.7 s 12.0-14.7 [facility] TaylorNxvpoekWLOFWZMDRZ9196-28-21 04:34:00 Test Item Value Reference Range Interpretation Comments INR (test code = INR) 1.14 1 0.85-1.17 [facility] TaylorEwsnlfcLFQCXGZYML3196-30-03 04:34:00 Test Item Value Reference Range Interpretation Comments PTT (test code = PTT) 31.2 s 22.9-35.8 [place] 789010-12-06 04:34:00 Test Item Value Reference Range Interpretation Comments Segs (test code = Segs) 73.9 45.0-75.0 [place] 789010-12-06 04:34:00 Test Item Value Reference Range Interpretation Comments Lymphocytes (test code = Lymphocytes) 11.0 20.0-40.0 [place] [address]-12-06 04:34:00 Test Item Value Reference Range Interpretation Comments Monocytes (test code = Monocytes) 13.6 2.0-12.0 [facility] TaylorQrlizrxQFZEZIAYXH5017-38-83 04:34:00 Test Item Value Reference Range Interpretation Comments Eosinophils (test code = 0.7 See_Comment [A utomated message] The Eosinophils) system which ge nerated this result tra nsmitted reference range : <=4.0. The reference r christiano was not used to int erpret this result as normal/abnormal . [facility] TaylorWtutqigSCIFHTYEJA1383-87-48 04:34:00 Test Item Value Reference Range Interpretation Comments Basophils (test code = 0.8 See_Comment [Aut omated message] The Basophils) system which ge nerated this result tra nsmitted reference range : <=1.0. The reference r christiano was not used to int erpret this result as normal/abnormal . [facility] TaylorPkzhpmhGJQUFBMISE3879-48-07 04:34:00 Test Item Value Reference Range Interpretation Comments Neutrophils # (test code = Neutrophils 7.2 1.5-8.1 #) [facility] TaylorCznxgbbDOCJCSJMDU8026-83-41 04:34:00 Test Item Value Reference Range Interpretation Comments Lymphocytes # (test code = Lymphocytes 1.1 1.0-5.5 #) [facility] TaylorAhxzaltLIVFDVBWOA7586-89-89 04:34:00 Test Item Value Reference Range Interpretation Comments Monocytes # (test code 1.3 See_Comment [Aut omated message] The = Monocytes #) system which generated this result tra nsmitted reference range : <=0.8. The reference r christiano was not used to int erpret this result as normal/abnormal . [facility] TaylorPtknhlrJRIAQZCCIS2310-90-74 04:34:00 Test Item Value Reference Range Interpretation Comments Eosinophils # (test code 0.1 See_Comment [A utomated message] The = Eosinophils #) system whic h generated this result tra nsmitted reference range : <=0.5. The reference r christiano was not used to int erpret this result as normal/abnormal . [facility] TaylorPyspsvoDYJIISJDGP5212-59-03 04:34:00 Test Item Value Reference Range Interpretation Comments Basophils # (test code 0.1 See_Comment [Aut omated message] The = Basophils #) system which generated this result tra nsmitted reference range : <=0.2. The reference r christiano was not used to int erpret this result as normal/abnormal . [facility] G[facility]vineCARDIAC TMBCNMP5495-23-51 04:34:00 Test Item Value Reference Range Interpretation Comments Troponin-I (test code no gt See_Comment [Auto mated message] The = Troponin-I) system which g enerated this result transmit sheba reference range : <=0.40. The reference r christiano was not used to interpr et this result as edy l/abnormal. [place] 607050-12-06 04:34:00 Test Item Value Reference Range Interpretation Comments Glucose Lvl (test code = Glucose Lvl) 125 70-99 [place] [address]-12-06 04:34:00 Test Item Value Reference Range Interpretation Comments BUN (test code = BUN) 17 7-22 [place] 607050-12-06 04:34:00 Test Item Value Reference Range Interpretation Comments Creatinine Lvl (test code = Creatinine 1.51 0.50-1.40 Lvl) [place] 607050-12-06 04:34:00 Test Item Value Reference Range Interpretation Comments Sodium Lvl (test code = Sodium Lvl) 142 135-145 [place] [address]-12-06 04:34:00 Test Item Value Reference Range Interpretation Comments Potassium Lvl (test code = Potassium 4.0 3.5-5.1 Lvl) [place] 607050-12-06 04:34:00 Test Item Value Reference Range Interpretation Comments Chloride Lvl (test code = Chloride Lvl) 108 95-109 [place] 607050-12-06 04:34:00 Test Item Value Reference Range Interpretation Comments CO2 (test code = CO2) 30 24-32 [place] [address]-12-06 04:34:00 Test Item Value Reference Range Interpretation Comments Calcium Lvl (test code = Calcium Lvl) 7.8 8.5-10.5 [place] 607050-12-06 04:34:00 Test Item Value Reference Range Interpretation Comments AGAP (test code = AGAP) 8.0 10.0-20.0 [place] [address]-12-06 04:34:00 Test Item Value Reference Range Interpretation Comments eGFR (test code = eGFR) 33 [place] 789010-12-06 04:34:00 Test Item Value Reference Range Interpretation Comments WBC X 10x3 (test code = WBC X 10x3) 9.7 3.7-10.4 [place] 789010-12-06 04:34:00 Test Item Value Reference Range Interpretation Comments RBC X 10x6 (test code = RBC X 10x6) 3.96 4.20-5.40 [place] 789010-12-06 04:34:00 Test Item Value Reference Range Interpretation Comments Hgb (test code = Hgb) 10.6 12.0-16.0 [place] [address]-12-06 04:34:00 Test Item Value Reference Range Interpretation Comments Hct (test code = Hct) 32.6 36.0-48.0 [facility] TaylorSudfqhkUJHVGMLYDC5207-50-30 04:34:00 Test Item Value Reference Range Interpretation Comments MCV (test code = MCV) 82.3 80.0-98.0 [place] [address]-12-06 04:34:00 Test Item Value Reference Range Interpretation Comments MCH (test code = MCH) 26.6 pg 27.0-31.0 [place] [address]-12-06 04:34:00 Test Item Value Reference Range Interpretation Comments MCHC (test code = MCHC) 32.4 32.0-36.0 [facility] TaylorGnubhopRVPWYHRUCR2486-87-72 04:34:00 Test Item Value Reference Range Interpretation Comments RDW (test code = RDW) 16.8 11.5-14.5 [place] [address]-12-06 04:34:00 Test Item Value Reference Range Interpretation Comments Platelet (test code = Platelet) 178 133-450 [facility] TaylorLixlohiFBUXWWPPYQ0959-71-55 04:34:00 Test Item Value Reference Range Interpretation Comments MPV (test code = MPV) 8.0 7.4-10.4 [place] [address]-12-06 04:34:00 Test Item Value Reference Range Interpretation Comments PT (test code = PT) 14.7 s 12.0-14.7 [place] [address]-12-06 04:34:00 Test Item Value Reference Range Interpretation Comments INR (test code = INR) 1.14 1 0.85-1.17 [place] [address]-12-06 04:34:00 Test Item Value Reference Range Interpretation Comments PTT (test code = PTT) 31.2 s 22.9-35.8 [place] [address]-12-06 04:34:00 Test Item Value Reference Range Interpretation Comments Segs (test code = Segs) 73.9 45.0-75.0 [place] [address]-12-06 04:34:00 Test Item Value Reference Range Interpretation Comments Lymphocytes (test code = Lymphocytes) 11.0 20.0-40.0 [place] 789010-12-06 04:34:00 Test Item Value Reference Range Interpretation Comments Monocytes (test code = Monocytes) 13.6 2.0-12.0 [place] 789010-12-06 04:34:00 Test Item Value Reference Range Interpretation Comments Eosinophils (test code = 0.7 See_Comment [A utomated message] The Eosinophils) system which ge nerated this result tra nsmitted reference range : <=4.0. The reference r christiano was not used to int erpret this result as normal/abnormal . [place] 789010-12-06 04:34:00 Test Item Value Reference Range Interpretation Comments Basophils (test code = 0.8 See_Comment [Aut omated message] The Basophils) system which ge nerated this result tra nsmitted reference range : <=1.0. The reference r christiano was not used to int erpret this result as normal/abnormal . [facility] TaylorKbgtcadXWNVHCUBAG7681-13-09 04:34:00 Test Item Value Reference Range Interpretation Comments Neutrophils # (test code = Neutrophils 7.2 1.5-8.1 #) [place] 789010-12-06 04:34:00 Test Item Value Reference Range Interpretation Comments Lymphocytes # (test code = Lymphocytes 1.1 1.0-5.5 #) [place] 789010-12-06 04:34:00 Test Item Value Reference Range Interpretation Comments Monocytes # (test code 1.3 See_Comment [Aut omated message] The = Monocytes #) system which generated this result tra nsmitted reference range : <=0.8. The reference r christiano was not used to int erpret this result as normal/abnormal . [place] 789010-12-06 04:34:00 Test Item Value Reference Range Interpretation Comments Eosinophils # (test code 0.1 See_Comment [A utomated message] The = Eosinophils #) system whic h generated this result tra nsmitted reference range : <=0.5. The reference r christiano was not used to int erpret this result as normal/abnormal . [place] [address]-12-06 04:34:00 Test Item Value Reference Range Interpretation Comments Basophils # (test code 0.1 See_Comment [Aut omated message] The = Basophils #) system which generated this result tra nsmitted reference range : <=0.2. The reference r christiano was not used to int erpret this result as normal/abnormal . [facility]vineCARDIAC [id number] 04:34:00 Test Item Value Reference Range Interpretation Comments Troponin-I (test code no gt See_Comment [Auto mated message] The = Troponin-I) system which g enerated this result transmit sheba reference range : <=0.40. The reference r christiano was not used to interpr et this result as edy l/abnormal. [facility] [id number] 04:34:00 Test Item Value Reference Range Interpretation Comments Glucose Lvl (test code = Glucose Lvl) 125 70-99 [facility] [id number] 04:34:00 Test Item Value Reference Range Interpretation Comments BUN (test code = BUN) 17 7-22 [facility] [id number] 04:34:00 Test Item Value Reference Range Interpretation Comments Creatinine Lvl (test code = Creatinine 1.51 0.50-1.40 Lvl) [facility] [id number] 04:34:00 Test Item Value Reference Range Interpretation Comments Sodium Lvl (test code = Sodium Lvl) 142 135-145 [facility] [id number] 04:34:00 Test Item Value Reference Range Interpretation Comments Potassium Lvl (test code = Potassium 4.0 3.5-5.1 Lvl) [facility] [id number] 04:34:00 Test Item Value Reference Range Interpretation Comments Chloride Lvl (test code = Chloride Lvl) 108 95-109 [facility] [id number] 04:34:00 Test Item Value Reference Range Interpretation Comments CO2 (test code = CO2) 30 24-32 [facility] [id number] 04:34:00 Test Item Value Reference Range Interpretation Comments Calcium Lvl (test code = Calcium Lvl) 7.8 8.5-10.5 [facility] [id number] 04:34:00 Test Item Value Reference Range Interpretation Comments AGAP (test code = AGAP) 8.0 10.0-20.0 [facility]2020-12-06 04:34:00 Test Item Value Reference Range Interpretation Comments eGFR (test code = eGFR) 33 [facility] TaylorLrybxjeJFWALMTEDF0098-70-89 04:34:00 Test Item Value Reference Range Interpretation Comments WBC X 10x3 (test code = WBC X 10x3) 9.7 3.7-10.4 [facility] TaylorHnlffndOVZSIFBRUM5386-54-36 04:34:00 Test Item Value Reference Range Interpretation Comments RBC X 10x6 (test code = RBC X 10x6) 3.96 4.20-5.40 [place] 789010-12-06 04:34:00 Test Item Value Reference Range Interpretation Comments Hgb (test code = Hgb) 10.6 12.0-16.0 [facility] TaylorCsezyhhNKKKZMEWXF5746-63-69 04:34:00 Test Item Value Reference Range Interpretation Comments Hct (test code = Hct) 32.6 36.0-48.0 [facility] TaylorAezvqlgFRQRVEYNJA5227-03-69 04:34:00 Test Item Value Reference Range Interpretation Comments MCV (test code = MCV) 82.3 80.0-98.0 [facility] TaylorXirkwqaEXNUIETQSW3296-13-27 04:34:00 Test Item Value Reference Range Interpretation Comments MCH (test code = MCH) 26.6 pg 27.0-31.0 [facility] TaylorLapcwydOAJLKHQVIH5148-94-38 04:34:00 Test Item Value Reference Range Interpretation Comments MCHC (test code = MCHC) 32.4 32.0-36.0 [facility] TaylorBzlnkcdJMWSULUXYK2714-90-70 04:34:00 Test Item Value Reference Range Interpretation Comments RDW (test code = RDW) 16.8 11.5-14.5 [place] 789010-12-06 04:34:00 Test Item Value Reference Range Interpretation Comments Platelet (test code = Platelet) 178 133-450 [facility] TaylorBfgtiwzXVICFYTMED7147-28-92 04:34:00 Test Item Value Reference Range Interpretation Comments MPV (test code = MPV) 8.0 7.4-10.4 [facility] TaylorDmaxsnaXHEYOOMJAJ3298-64-22 04:34:00 Test Item Value Reference Range Interpretation Comments PT (test code = PT) 14.7 s 12.0-14.7 [place] 789010-12-06 04:34:00 Test Item Value Reference Range Interpretation Comments INR (test code = INR) 1.14 1 0.85-1.17 [place] 789010-12-06 04:34:00 Test Item Value Reference Range Interpretation Comments PTT (test code = PTT) 31.2 s 22.9-35.8 [place] 789010-12-06 04:34:00 Test Item Value Reference Range Interpretation Comments Segs (test code = Segs) 73.9 45.0-75.0 [place] 789010-12-06 04:34:00 Test Item Value Reference Range Interpretation Comments Lymphocytes (test code = Lymphocytes) 11.0 20.0-40.0 [place] [address]-12-06 04:34:00 Test Item Value Reference Range Interpretation Comments Monocytes (test code = Monocytes) 13.6 2.0-12.0 [place] 789010-12-06 04:34:00 Test Item Value Reference Range Interpretation Comments Eosinophils (test code = 0.7 See_Comment [A utomated message] The Eosinophils) system which ge nerated this result tra nsmitted reference range : <=4.0. The reference r christiano was not used to int erpret this result as normal/abnormal . [place] 789010-12-06 04:34:00 Test Item Value Reference Range Interpretation Comments Basophils (test code = 0.8 See_Comment [Aut omated message] The Basophils) system which ge nerated this result tra nsmitted reference range : <=1.0. The reference r christiano was not used to int erpret this result as normal/abnormal . [place] 789010-12-06 04:34:00 Test Item Value Reference Range Interpretation Comments Neutrophils # (test code = Neutrophils 7.2 1.5-8.1 #) [place] 789010-12-06 04:34:00 Test Item Value Reference Range Interpretation Comments Lymphocytes # (test code = Lymphocytes 1.1 1.0-5.5 #) [place] [address]-12-06 04:34:00 Test Item Value Reference Range Interpretation Comments Monocytes # (test code 1.3 See_Comment [Aut omated message] The = Monocytes #) system which generated this result tra nsmitted reference range : <=0.8. The reference r christiano was not used to int erpret this result as normal/abnormal . [facility] TaylorLtrochbJXNOXQEQDM7651-56-53 04:34:00 Test Item Value Reference Range Interpretation Comments Eosinophils # (test code 0.1 See_Comment [A utomated message] The = Eosinophils #) system whic h generated this result tra nsmitted reference range : <=0.5. The reference r christiano was not used to int erpret this result as normal/abnormal . [facility] TaylorMexsedeFUWHZKPYKF9387-03-30 04:34:00 Test Item Value Reference Range Interpretation Comments Basophils # (test code 0.1 See_Comment [Aut omated message] The = Basophils #) system which generated this result tra nsmitted reference range : <=0.2. The reference r christiano was not used to int erpret this result as normal/abnormal . [facility] SHOULDER 2+ VW [id number] 17:54:27 Comminuted distal clavicle fracture. EXAM: XR SHOULDER 2+ VW RIGHT HISTORY: shoulder pain COMPARISON: None. FINDINGS: A comminuted fracture of the distal clavicle is seen. There is resultantmild widening of the acromioclavicular joint. Alignment is maintained atthe glenohumeral joint which exhibits osteoarthritic changes manifested byjoint space narrowing and osteophytosis. Osteopenia is suggested.At herosclerotic calcifications are present in the aortic arch. [facility], Radiant Results Inft User - 06/28/2020 12:55 PM CDTEXAM:XR SHOULDER 2+ VW RIGHTHISTORY:shoulder pain COMPARISON:None.FINDINGS: A comminuted fracture of the distal clavicle is seen. There is resultantmild widening of the acromioclavicular joint. Alignment is maintained atthe glenohumeral joint which exhibits osteoarthritic changes manifested byjoint space narrowing and osteophytosis. Osteopenia is suggested.Atherosclerotic calcifications are present in the aortic arch.IMPRESSIONComminuted distal clavicle fracture. [facility] FOREARM 2 VW [id number] 17:53:09 No acute bony abnormality. EXAM: XR FOREARM 2 VW RIGHT HISTORY: right arm pain COMPARISON: None. FINDINGS: Osteopenia is noted. 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 Mild osteoarthritic changes are present at theelbow. No acute fracture or dislocation is seen. [facility], Radiant Results Inft User - 06/28/2020 12:54 PM CDTEXAM:XR FOREARM 2 VW RIGHTHISTORY:right arm pain COMPARISON:None.FINDINGS: Osteopenia is noted. 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 Mild osteoarthritic changes are present at theelbow. No acute fracture or dislocation is seen.IMPRESSIONNo acute bony abnormality.[facility]
[2022-09-20 20:27] LABS: Absolute Lymphocytes (CBC) 1.2 K/uL (0.7-4.9); Hematocrit 31.5 % (36.0-45.0); Lymphocytes % 16.8 % (15.3-44.8); MCV 89.2 fL (80-100); MPV 7.7 fL (7.6-11.3); RBC Red Blood Cell Count 3.53 M/uL (3.86-4.86)
[2022-09-20 20:46] LABS: Phosphorus 3.9 mg/dL (2.5-4.9); Potassium 4.3 mmol/L (3.5-5.1); Thyroid Stimulating Hormone 0.132 uIU/mL (0.358-3.740); Uric Acid 9.3 mg/dL (2.6-6.0)
[2022-09-20] MEDS: BUPROPRION HCL S.R. 150MG TAB PO SCH (21:00)
[2022-09-20] MEDS ORDERED: ATORVASTATIN 10 MG TAB PO SCH (21:00)
[2022-09-20] MEDS ORDERED: DONEPEZIL HCL 5 MG TAB PO SCH (21:00)
[2022-09-20] MEDS: OXYBUTYNIN ER 5 MG TAB PO SCH (21:03)
[2022-09-20] MEDS: FUROSEMIDE 40 MG/4 ML VIAL IV SCH (21:03)
--- NOTE | 2022-09-20 21:25 | RAD REPORT ---
EXAM DESCRIPTION: Vishnu Arrieta (2 Views)09/20/2022 8:59 pm CLINICAL HISTORY: sob COMPARISON: December 2021 FINDINGS: Areas of scarring are present within the lung bases. The remainder of the lungs appear clear of acute infiltrate. The heart is normal size IMPRESSION: No acute abnormalities displayed
[2022-09-20] MEDS ORDERED: ENOXAPARIN 30 MG/0.3 ML SQ ONE (22:00)
[2022-09-20 23:13] LABS: Specific Gravity 1.008 (1.005-1.030); Urine Bilirubin NEGATIVE (Negative); Urine Blood Negative (Negative); Urine Clarity Clear (Clear); Urine Color Colorless (Yellow); Urine Glucose NEGATIVE (Negative); Urine Protein NEGATIVE (Negative); Urine Urobilinogen Normal (Normal); Urine pH 6.5 (5.0-7.0)
[2022-09-20 23:30] LABS: UR PROTEIN 20.8 mg/dL (<11.9); Urine Protein/Creatinine Ratio 0.72 ratio (<0.15)
[2022-09-21 04:19] LABS: Albumin 3.1 g/dL (3.4-5.0); Phosphorus 3.9 mg/dL (2.5-4.9); Potassium 3.8 mmol/L (3.5-5.1)
[2022-09-21] MEDS: carvediloL 3.125 MG TAB PO SCH ×2 (05:15→17:04)
[2022-09-21 06:17] VITALS: BMI 36.1
[2022-09-21] MEDS ORDERED: LEVOTHYROXINE SOD 0.125 MG TAB PO SCH (06:30)
[2022-09-21] MEDS ORDERED: PNEUMOCOCCAL VACCINE 0.5 ML IMVAC ONE (08:00)
--- NOTE | 2022-09-21 08:21 | RAD REPORT ---
EXAM DESCRIPTION: US - Urinary Bladder - 09/21/2022 5:26 am CLINICAL HISTORY: CLIFF Urinary retention COMPARISON: Urinary Bladder dated 09/01/2021 TECHNIQUE: Real-time sonographic evaluation of the urinary bladder with postvoid volume measurements was performed. FINDINGS: There is no evidence of urinary bladder mass or ureterocele. No urinary bladder wall thick ening seen. Postvoid bladder volume is 87 mL. IMPRESSION: Moderate postvoid residual is present.
--- NOTE | 2022-09-21 08:23 | RAD REPORT ---
EXAM DESCRIPTION: US - Renal Ultrasound-Complete - 09/21/2022 5:27 am CLINICAL HISTORY: CLIFF Flank pain COMPARISON: Abdomen Exam Limited dated 01/04/2022 FINDINGS: Both kidneys are normal in size, shape and echotexture. The right kidney measures 9.9 x 5.0 x 4.5 cm. No hydronephrosis, focal mass or perinephric fluid. Aydin ign cortical renal cysts are present. The left kidney measures 8.5 x 4.4 x 4.4 cm. No hydronephrosis, focal mass or perinephric fluid. Dinesh gn cortical renal cysts are present. The urinary bladder is incompletely distended without gross abnormality seen. IMPRESSION: Benign bilateral cortical renal cysts, otherwise negative study.
[2022-09-21] MEDS ORDERED: FAMOTIDINE 20 MG TAB PO SCH (09:00)
[2022-09-21] MEDS ORDERED: ENOXAPARIN 30 MG/0.3 ML SQ SCH ×2 (09:00→21:00)
[2022-09-21] MEDS ORDERED: DRISDOL (VITAMIN D=ERGOCALCIFEROL) 50000 UNIT CAP PO SCH (09:00)
[2022-09-21] MEDS: FUROSEMIDE 40 MG/4 ML VIAL IV SCH (09:05)
[2022-09-21] MEDS: OXYBUTYNIN ER 5 MG TAB PO SCH ×2 (09:06→13:06)
[2022-09-21] MEDS: BUPROPRION HCL S.R. 150MG TAB PO SCH (09:06)
[2022-09-21] MEDS ORDERED: LOPERAMIDE HCL 2 MG CAPSULE PO PRN (14:16)
--- NOTE | 2022-09-21 14:55 | PN ---
Date of Progress Note: 09/21/2022 Patient states since she has been hospitalized she lost approximately 14 pounds. Minimal change in h er creatinine with a slight drop. She feels back to baseline and comfortable. Awaiting Nephrology. If in fact she is still stable by later this afternoon, she probably could be discharged. Continue on her usual home medication and will be seen next week. HR/MODL Voice ID: [id number] Report ID: [id number]
[2022-09-21 16:10] VITALS: BP 159/55; TEMP 97.6
--- NOTE | 2022-10-18 19:51 | SS ---
Date of Discharge: 09/21/2022 Hospital Course: The patient was admitted to the hospital on 08/2021 for abnormal chemistries in reg larissa to renal function. The patient was recently hospitalized with CHF and was diuresed with some art nge in her diuretics. Repeat blood work initially was okay; however, on the second round, which was on the day of admission, she had markedly elevated creatinine and decreased GFR. Clinically was dehy drated. It was felt she should be readmitted, placed on replacement as necessary and seen by Nephrol fuad. The latter put her on fluid restriction, gave her 80 mg of Lasix twice a day and maintained her usual medication and did a renal panel and ultrasound basically. The next day, she has improved con siderably and felt much better. She lost approximately 14 pounds. She felt she was back to baseline and it was felt she could be discharged in good condition, continue on her usual medication, and fol low up with myself and her coil finisher. Final Diagnoses: Acute renal insufficiency, coronary artery disease, peripheral vascular disease, an d hypertension controlled. HR/MODL Voice ID: [id number] Report ID: [id number]
== END 2022-09-21 19:24 | disposition home health service (06) | DRG 700 ==
LOC: 2ND 17:42
PROVIDERS: ADMIT Family Medicine; ATTEND Family Medicine
DX: N28.9 Disorder of kidney and ureter, unspecified (principal); I10 Essential (primary) hypertension; E86.0 Dehydration; I73.9 Peripheral vascular disease, unspecified; I25.10 Atherosclerotic heart disease of native coronary artery without angina pectoris; Z20.822 Contact with and (suspected) exposure to COVID-19
CPT/HCPCS: 36415; 71046; 76770; 76857; 80069; 81003; 82550; 82570; 83880; 84156; 84443; 84550; 85025; 87811; J1650; J1940

== ENCOUNTER 2022-10-03 13:35 | Emergency (ER) | payer MEDICARE ==
--- OUTSIDE RECORDS SUMMARY | 2022-10-03 13:47 | XMS REPORT | Continuity of Care Document ---
:1940 Author Organization [facility] t Address [address] [place] [address] Care Team Providers Name Role Phone SMILEY HOLDER Primary Care Physician Unavailable Anurag Sanderson Attending Clinician Unavailable CARLY SINCLAIR Attending Clinician Unavailable Carly Sinclair DO Attending Clinician Sunny Attending Clinician Unavailable Allegra Laura Attending Clinician Jeffrey Garcia Attending Clinician Olivia-Molly_A_RADHA Attending Clinician Unavailable Caitlyn Jerez Attending Clinician [phone] Vincent Soni Attending Clinician Sariah Becerra Attending Clinician Maria Luisa Rust NP Attending Clinician Timi Aguirre MD Attending Clinician TIMI AGUIRRE Attending Clinician Unavailable Physician, No Primary or Family Admitting Clinician UnavailCARLY Reveles Admitting Clinician Unavailable Sunny Admitting Clinician Unavailable Farihao_A_AH Admitting Clinician Unavailable Vincent Soni Admitting Clinician TIMI AGUIRRE Admitting Clinician Unavailable Payers Payer Name Policy Type Policy Number Effective Date Expiration Date S kristen [employer] [place] [id number] 2019 CLASSIC/VALUE 00:00:00 DEVOTED HEALTH [id number] 2020 MEDICARE ADVANTAGE 00:00:00 PLAN DEVOTED HEALTH [id number] (MEDICARE 00:00:00 REPLACEMENT HMO) [employer] OF [place] - [id number] 2019 [place] (MEDICARE 00:00:00 REPLACEMENT/ADVANTA GE - HMO) Problems Condition Condition Condition Status Onset Resolution Last Treating Co mments Source Name Details Category Date Date Treatment Clinician Date FALL FROM FALL FROM Diagnosis Active 2019-102020-09-16 Memoria STANDING STANDING 2 21:55:00 l Active 00:00: [place] 09/04/2020 00 [facility] S/P FALL, S/P FALL, Diagnosis Active 2019-102020-09-05 Memoria FRACTURED FRACTURED 2 00:45:00 l RIGHT RIGHT 00:00: Raul WRIST, WRIST, 00 HEAD HE HEAD HE Active 09/04/2020 [facility] [id number] 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 [facility] [id number] Primary Problem Comm on osteoarthr Spirit itis, - [facility] right [facility] foot [facility] [id number] Primary Problem 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 [facility] arpal [facility] right hand [id number] Acute pain Problem Com mon of right Spirit shoulder [facility] [id number] 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 [facility] [id number] Arthritis Problem Com mon of hand Spirit - [facility] Hypertensi Hypertens Problem Active 2022-04-30 Memoria ve lyle 22:34:31 l disorder, disorder, Herm bernie systemic systemic arterial arterial (disorder) (disorder) Active Problem 04/30/2022 [facility] Hyperlipid Hyperlipi Problem Active 2022-04-30 Memoria emia demia 22:34:31 l (disorder) (disorder) He rmann Active Problem 04/30/2022 [facility] Hypothyroi Hypothyro Problem Active 2022-04-30 Memoria dism idism 22:34:31 l (disorder) (disorder) He rmann Active Problem 04/30/2022 [facility] Memory Memory Problem Active 2022-04-30 Jose Francisco zhang impairment impairment 22:34:31 l (finding) (finding) Herm bernie Active Problem 04/30/2022 [facility] Morbid Morbid Problem Active 2022-04-30 Jose Francisco zhang obesity obesity 22:34:31 l (disorder) (disorder) He rmann Active Problem 04/30/2022 [facility] Recurrent Recurrent Problem Active 2022-04-30 Memoria falls falls 22:34:31 l (finding) (finding) Herm bernie Active Problem 04/30/2022 [facility] Transient Transient Problem Active 2022-04-30 Memoria ischemic ischemic 22:34:31 l attack attack [place] (disorder) (disorder) Active Problem 04/30/2022 [facility] Tremor Tremor Problem Active 2022-04-30 Jose Francisco zhang (finding) (finding) 22:34:31 l Active [place] Problem 04/30/2022 [facility] Chronic Chronic Problem Active 2022-04-30 Me moria kidney kidney 22:34:31 l disease disease [place] (disorder) (disorder) Active Problem 04/30/2022 [facility] 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 Raul disease disease (disorder) (disorder) Active Problem 04/30/2022 [facility] Depressive Depressiv Problem Active 2022-04-30 Memoria disorder e disorder 22:34:31 l (disorder) (disorder) He rmann Active Problem 04/30/2022 [facility] Essential Essential Problem Active 2022-04-30 Memoria tremor tremor 22:34:31 l (disorder) (disorder) He rmann Active Problem 04/30/2022 [facility] UNSPECIFIE Diagnosis Active 2020-09-16 Memoria D FALL, UNSPECIFIE 21:55:00 l INITIAL D FALL, Raul ENCOUNTER INITIAL ENCOUNTER Active [facility] Allergies, Adverse Reactions, Alerts Allergy Allergy Status Severity Reaction(s) Onset Inactive Treating Comm ents Source Name Type Date Date Clinician ADHESIVE DRUG Active Med Rash Univers TAPE-DEBBY 8-30 ity of ICONES 00:00: [place] [address] [facility] MOXIFLOX DRUG Active Med Rash Univers ACIN HCL INGREDI 8-30 ity of 00:00: [place] [address] [facility] Adhesive Propensi Active Rash Univer s Tape-Debby ty to 8-30 ity of icones adverse 00:00: [place] reaction 00 Medical s to Branch drug Moxiflox Propensi Active Rash Univer s acin Hcl ty to 8-30 ity of adverse 00:00: [place] reaction 00 Medical s to Branch drug moxiflox DA Active U [facility] acin HCl 2-15 00:00: [address] BANDAIDS DA Active SC [facility] ADHESIVE 2-15 00:00: [address] Avelox Allergy Active Rash [facility] to Medical substanc Group e Avelox Avelox Active SC^Mild Memoria l Raul Social History Social Habit Start Date Stop Date Quantity Comments Source History of Common Spirit - Tobacco Use [facility] Sex Assigned At Common Sp cristian - [facility] ASSERTION [facility] Alcohol Comment Occasional Universit y of Drinker [facility] Exposure to 2022-07-26 2022-08-05 Not sure [facility] SARS-CoV-2 00:00:00 12:21:00 [place] [facility] (event) [facility] Alcohol intake 2022-08-05 2022-08-05 0 /d University of 00:00:00 00:00:00 [place] [facility] Social History 2020-09-05 2020-09-05 Nancy najera 14:31:45 14:31:45 Tobacco use and 2020-06-28 2020-06-28 Never used Universit y of exposure 00:00:00 00:00:00 [place] [facility] Smoking Status Start Date Stop Date Source Former Smoker 2022-07-28 00:00:00 2022-07-28 00:00:00 Common S pirit - [facility] Ce nter Never smoked tobacco [facility] Medications Ordered Filled Start Stop Current Ordering Indication Dosage Frequency Signature Comments Components Source Medication Medication Date Date Medication? Clinician (SIG) Name Name albuterol 2021-10 No 5mg 5 mg, Univer s (PROVENTIL) 10-05 Inhalation i ty of 2.5 mg /3 18:15: 17:40 , [place]CE, [place] (0.083 00 :00 dose, On Medica l %) [facility] nebulizer 08/05/22 at solution 5 1315, DIMITRIS mg primidone Yes 50 mg = 1 Mem oria 50 mg oral 2-02 tab, PO, l tablet 20:46: Bedtime, # Jessie nn 00 90 tab, 2 Refill(s), Pharmacy: [id number], 149.86, cm, 11/02/21 14:32:00 CROP ROLLER, Height, 90.455, kg, 11/02/21 14:32:00 CROP ROLLER, Weight primidone 2021-0 Yes 50 mg = 1 Mem oria 50 mg oral 2-02 tab, PO, l tablet 20:46: Bedtime, # Jessie nn 00 90 tab, 2 Refill(s), Pharmacy: [id number], 149.86, cm, 11/02/21 14:32:00 CROP ROLLER, Height, 90.455, kg, 11/02/21 14:32:00 CROP ROLLER, Weight primidone 2021-0 Yes 50 mg = 1 Mem oria 50 mg oral 2-02 tab, PO, l tablet 20:46: Bedtime, # Jessie nn 00 90 tab, 2 Refill(s), Pharmacy: [id number], 149.86, cm, 11/02/21 14:32:00 CROP ROLLER, Height, 90.455, kg, 11/02/21 14:32:00 CROP ROLLER, Weight primidone 2022-0 Yes 50 mg = 1 Mem oria 50 mg oral 2-02 tab, PO, l tablet 20:46: Bedtime, # Jessie nn 00 90 tab, 2 Refill(s), Pharmacy: [id number], 149.86, cm, 11/02/21 14:32:00 CROP ROLLER, Height, 90.455, kg, 11/02/21 14:32:00 CROP ROLLER, Weight NIFEdipine Yes TAKE 1 Memor ia [...] BY l de 50 MG 20:38: MOUTH [place] Oral Tablet 00 EVERY 6 TO 8 HOURS NEEDED predniSONE Yes TAKE 1 Memor ia 10 mg oral 2-02 TABLET BY l tablet 20:38: MOUTH Raul 00 EVERY DAY FOR 90 DAYS doxycycline Yes TAKE 1 Jose Francisco zhang hyclate 100 2-02 CAPSULE BY l MG Oral 20:38: MOUTH [place] Capsule 00 TWICE A DAY Colestipol Yes TAKE 1 Memor ia Hydrochlori 2-02 TABLET BY l de 1000 MG 20:38: MOUTH Ajay n Oral Tablet 00 TWICE A DAY pantoprazol Yes TAKE 1 Jose Francisco zhang e 40 mg 2-02 TABLET BY l oral 20:38: MOUTH 2 [place] enteric 00 TIMES coated DAILY HALF tablet [...] 2-02 TABLET BY l tablet 20:38: MOUTH [place] 00 EVERY DAY FOR 90 DAYS doxycycline [...] BY l CC) 30 mg 20:38: MOUTH [place] oral 00 EVERY DAY tablet, ON EMPTY extended STOMACH release FOR 30 DAYS Furosemide Yes TAKE 1 Memor ia 40 MG Oral 2-02 TABLET BY l Tablet 20:38: MOUTH Raul 00 EVERY DAY NEEDED FOR SWELLING tramadol Yes TAKE 1 Memoria hydrochlori 2-02 TABLET BY l de 50 MG 20:38: MOUTH [place] Oral Tablet 00 EVERY 6 TO 8 HOURS NEEDED predniSONE Yes TAKE 1 Memor ia 10 mg oral 2-02 TABLET BY l tablet 20:38: MOUTH [place] 00 EVERY DAY FOR 90 DAYS doxycycline [...] 2-02 TABLET BY l tablet 20:38: MOUTH [place] 00 THREE TIMES A DAY NIFEdipine Yes [...] CAPSULE BY l MG Oral 20:38: MOUTH [place] Capsule 00 TWICE A DAY Colestipol Yes TAKE 1 Memor ia Hydrochlori 2-02 TABLET BY l de 1000 MG 20:38: MOUTH Ajay n Oral Tablet 00 TWICE A DAY pantoprazol Yes TAKE 1 Jose Francisco zhang e 40 mg 2-02 TABLET BY l oral 20:38: MOUTH 2 [place] enteric 00 TIMES coated DAILY HALF tablet HOUR BEFORE BREAKFAST OR FIRST MEAL oxybutynin Yes TAKE 1 Memor ia 5 mg oral 2-02 TABLET BY l tablet 20:38: MOUTH Raul 00 THREE TIMES A DAY donepezil Yes = 1 tab, Jose Francisco zhang 10 mg oral 3-26 PO, Daily, l tablet 19:08: # 90 tab, Ajay n 00 1 Refill(s), Pharmacy: [id number], 149.86, cm, 12/24/20 13:59:00 CDT, Height, 93.182, kg, 12/24/20 13:59:00 CDT, Weight primidone Yes 50 mg = 1 Mem oria 50 mg oral 3-26 tab, PO, l tablet 19:08: Bedtime, # Jessie nn 00 90 tab, 2 Refill(s), Pharmacy: [id number], 149.86, cm, 12/24/20 13:59:00 CDT, Height, 93.182, kg, 12/24/20 13:59:00 CDT, Weight donepezil 2020-0 Yes = 1 tab, Jose Francisco zhang 10 mg oral 3-26 PO, Daily, l tablet 19:08: # 90 tab, Ajay n 00 1 Refill(s), Pharmacy: [id number], 149.86, cm, 12/24/20 13:59:00 CDT, Height, 93.182, kg, 12/24/20 13:59:00 CDT, Weight primidone 1-0 Yes 50 mg = 1 Mem oria 50 mg oral 3-26 tab, PO, l tablet 19:08: Bedtime, # Jessie nn 00 90 tab, 2 Refill(s), Pharmacy: [id number], 149.86, cm, 12/24/20 13:59:00 CDT, Height, 93.182, kg, 12/24/20 13:59:00 CDT, Weight donepezil 2020-0 Yes = 1 tab, Jose Francisco zhang 10 mg oral 3-26 PO, Daily, l tablet 19:08: # 90 tab, Ajay n 00 1 Refill(s), Pharmacy: [id number], 149.86, cm, 12/24/20 13:59:00 CDT, Height, 93.182, kg, 12/24/20 13:59:00 CDT, Weight primidone 1-0 Yes 50 mg = 1 Mem oria 50 mg oral 3-26 tab, PO, l tablet 19:08: Bedtime, # Jessie nn 00 90 tab, 2 Refill(s), Pharmacy: [id number], 149.86, cm, 12/24/20 13:59:00 CDT, Height, 93.182, kg, 12/24/20 13:59:00 CDT, Weight donepezil 2020-0 Yes = 1 tab, Jose Francisco zhang 10 mg oral 3-26 PO, Daily, l tablet 19:08: # 90 tab, Ajay n 00 1 Refill(s), Pharmacy: [id number], 149.86, cm, 12/24/20 13:59:00 CDT, Height, 93.182, kg, 12/24/20 13:59:00 CDT, Weight primidone 2020-0 Yes 50 mg = 1 Mem oria 50 mg oral 3-26 tab, PO, l tablet 19:08: Bedtime, # Jessie nn 00 90 tab, 2 Refill(s), Pharmacy: [facility] #[id number], 149.86, cm, 12/24/20 13:59:00 CDT, Height, 93.182, kg, 12/24/20 13:59:00 CDT, Weight Lidocaine Lidocaine 2020-0 No 10mg Com 12-09 Spirit 00:00: - [facility] 00 [facility] Celestone Celestone 2020-0 No 6mg Com mon Soluspan Soluspan 3-11 Spirit (Betamethas (Betamethas 00:00: - CHI one) one) 00 [facility] Lidocaine Lidocaine 2020-0 No 10mg Com 12-09 Spirit 00:00: - [facility]I 00 [facility] Celestone Celestone 2020-0 No 6mg Com mon Soluspan Soluspan 3-11 Spirit (Betamethas (Betamethas 00:00: - CHI one) one) 00 [facility] Lidocaine Lidocaine 2020-0 No 10mg Com 12-09 Spirit 00:00: - [facility]I 00 [facility] Celestone Celestone 2020-0 No 6mg Com mon Soluspan Soluspan 3-11 Spirit (Betamethas (Betamethas 00:00: - CHI one) one) 00 [facility] Lidocaine Lidocaine 2020-0 No 10mg Com 12-09 Spirit 00:00: - CHI 00 [facility] Celestone Celestone 2020-0 No 6mg Com mon Soluspan Soluspan 3-11 Spirit (Betamethas (Betamethas 00:00: - CHI one) one) 00 [facility] Lidocaine Lidocaine 2020-0 No 10mg Com 12-09 Spirit 00:00: - [facility]I 00 [facility] Celestone Celestone 2020-0 No 6mg Com mon Soluspan Soluspan 3-11 Spirit (Betamethas (Betamethas 00:00: - CHI one) one) 00 [facility] Lidocaine Lidocaine No 10mg Com mon 3-11 Spirit 00:00: - CHI 00 [facility] Celestone Cel[place] No 6mg Com mon Soluspan Soluspan 11 Spirit (Betamethas (Betamethas 00:00: - CHI one) one) 00 [facility] Lovastatin 2019-10 No 20 mg, 1 Mem oria 2-07 tab, l 03:00: Route: PO, Raul Drug form: TAB, Bedtime, Dosing Weight 104.545, kg, Start date: 09/05/20 21:00:00 CROP ROLLER, 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, Stop date: 10/04/20 21:00:00 CROP ROLL[place] Primidone 2019-10 No Notes: Memori a 2-07 (Same as: l 03:00: Mysoline) Lipitor 2019-10 No Notes: Memoria 2-07 (Same As: l 03:00: Lipitor) Lovastatin 2019-10 No 20 mg, 1 Mem oria 2-07 tab, l 03:00: Route: PO, Raul 00 Drug form: TAB, Bedtime, Dosing Weight 104.545, kg, Start date: 09/05/20 21:00:00 CROP ROLLER, 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, Stop date: 10/04/20 21:00:00 CROP ROLLER Primidone 2019-10 No Notes: Memori a 2-07 (Same as: l 03:00: Mysoline) Lovastatin 2019-10 No 20 mg, 1 Mem oria 2-07 tab, l 03:00: Route: PO, Raul 00 Drug form: TAB, Bedtime, Dosing Weight 104.545, kg, Start date: 09/05/20 21:00:00 CROP ROLLER, 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, Stop date: 10/04/20 21:00:00 CROP ROLLER Primidone 2019-10 No Notes: Memori a 2-07 (Same as: l 03:00: Mysoline) Lipitor 2019-10 No Notes: Memoria 2-07 (Same As: l 03:00: Lipitor) Lipitor 2019-10 No Notes: Memoria 2-07 (Same As: l 03:00: Lipitor) Lovastatin 2020-1 No 20 mg, 1 Mem oria 2-07 tab, l 03:00: Route: PO, Drug form: TAB, Bedtime, Dosing Weight 104.545, kg, Start date: 09/05/20 21:00:00 CROP ROLLER, 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, Stop date: 10/04/20 21:00:00 CROP ROLLER Primidone 2019-10 No Notes: Memori a 2-07 [...] 18:51: Q6Hnow, 0 H [place] 00 Refill(s) DuoNeb 2019-10 No Notes: Memoria inhalation 2-06 (Same as: l solution 17:00: Duoneb) Ajay DuoNeb 2019-10 No Notes: Memoria inhalation 2-06 (Same as: l solution 17:00: Duoneb) Ajay DuoNeb 2019-10 No Notes: Memoria inhalation 2-06 [...] a 2-06 (Same as: l 15:00: Wellbutrin [place] XL) "Do Not Crush" carvedilol 2019-10 No [...] inhalation l 62.5 mcg-25 15:00: , Route: Catalino rmann mcg 00 INHALATION inhalation , Drug powder Form: PWDR, Dosing Weight 104.545, kg, Daily, Start date: 09/05/20 9:00:00 CROP ROLLER, 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, Stop date: 10/04/20 9:00:00 CROP ROLLER gabapentin 2019-10 No Notes: Memor ia 300 MG Oral 2-06 (Same as: l Capsule 15:00: Neurontin) ropinirole 2019-10 No Notes: Memor ia 2-06 (Same as: l 15:00: Requip) Bupropion 2019-10 No Notes: Memori a 2-06 (Same as: l 15:00: Wellbutrin [place] 00 XL) "Do Not Crush" carvedilol 2019-10 [...] 104.545, kg, Daily, Start date: 09/05/20 9:00:00 CROP ROLLER, 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, Stop date: 10/04/20 9:00:00 CROP ROLLER gabapentin 2019-10 No Notes: Memor ia 300 [...] 104.545, kg, Daily, Start date: 09/05/20 9:00:00 CROP ROLLER, 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, Stop date: 10/04/20 9:00:00 CROP ROLLER gabapentin 2019-10 No Notes: Memor ia 300 [...] 104.545, kg, Daily, Start date: 09/05/20 9:00:00 CROP ROLLER, 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, Stop date: 10/04/20 9:00:00 CROP ROLLER gabapentin 2019-10 No Notes: Memor ia 300 MG Oral 2-06 (Same as: l Capsule 15:00: Neurontin) ropinirole 2019-10 No Notes: Memor ia 2-06 (Same as: l 15:00: Requip) Streptococc 2019-10 No Notes: Jose Francisco zhang us 2-06 Shake well l pneumoniae 14:12: prior to Her ivory serotype 1 45 use (Same capsular as: antigen Prevnar diphtheria 13) [id number] protein conjugate vaccine / Streptococc us pneumoniae serotype 14 capsular antigen diphtheria [id number] protein conjugate vaccine / Streptococc us pneumoniae serotype 18C capsular antigen d Streptococc 2019-10 No Notes: Jose Francisco zhang us 2-06 Shake well l pneumoniae 14:12: prior to Her ivory serotype 1 45 use (Same capsular as: antigen Prevnar diphtheria 13) [id number] protein conjugate vaccine / Streptococc us pneumoniae serotype 14 capsular antigen diphtheria [id number] protein conjugate vaccine / Streptococc us pneumoniae serotype 18C capsular antigen d Streptococc 2019-10 No Notes: Jose Francisco zhang us 2-06 Shake well l pneumoniae 14:12: prior to Her ivory serotype 1 45 use (Same capsular as: antigen Prevnar diphtheria 13) [id number] protein conjugate vaccine / Streptococc us pneumoniae serotype 14 capsular antigen diphtheria [id number] protein conjugate vaccine / Streptococc us pneumoniae serotype 18C capsular antigen d Streptococc 2019-10 No Notes: Jose Francisco zhang us 2-06 Shake well l pneumoniae 14:12: prior to Her ivory serotype 1 45 use (Same capsular as: antigen Prevnar diphtheria 13) [id number] protein conjugate vaccine / Streptococc us pneumoniae serotype 14 capsular antigen diphtheria [id number] protein conjugate vaccine / Streptococc us pneumoniae serotype 18C capsular antigen d Thyroxine 2019-10 No Notes: Memori a 2-06 Take 1 l 14:00: hour Raul 00 before or 2 hours after meal; Enteral feeds may interefere with the absorption of this medication . (Same as:Levothr oid) Thyroxine 2019-10 No Notes: Memori a 2-06 Take 1 l 14:00: hour [place] 00 before or 2 hours after meal; Enteral feeds may interefere with the absorption of this medication . (Same as:Levothr oid) Thyroxine 2019-10 No Notes: Memori a 2-06 Take 1 l 14:00: hour [place] 00 before or 2 hours after meal; Enteral feeds may interefere with the absorption of this medication . (Same as:Levothr oid) Thyroxine 2019-10 No Notes: Memori a 2-06 Take 1 l 14:00: hour [place] 00 before or 2 hours after meal; Enteral feeds may interefere with the absorption of this medication . (Same as:Levothr oid) Iohexol 2019-10 No 100 mL, Memoria 2-06 Route: l 12:39: IVP, Drug [place] Form: NICHOLAS, Dosing Weight 104.545, kg, ONCALL, STAT, Start date: 09/05/20 6:39:00 CROP ROLLER, Duration: 1 doses or times, Dose = 2.2ml/kg, Max dose = 100ml -- "To be infused by Radiology Staff ONLY" Iohexol 2019-10 No 100 mL, Memoria 2-06 Route: l 12:39: IVP, Drug Raul Form: SOLN, Dosing Weight 104.545, kg, ONCALL, STAT, Start date: 09/05/20 6:39:00 CROP ROLLER, Duration: 1 doses or times, Dose = 2.2ml/kg, Max dose = 100ml -- "To be infused by Radiology Staff ONLY" Iohexol 2019-10 No 100 mL, Memoria 2-06 Route: l 12:39: IVP, Drug Raul Form: SOLN, Dosing Weight 104.545, kg, ONCALL, STAT, Start date: 09/05/20 6:39:00 CROP ROLLER, Duration: 1 doses or times, Dose = 2.2ml/kg, Max dose = 100ml -- "To be infused by Radiology Staff ONLY" Iohexol 2019-10 No 100 mL, Memoria 2 Route: l 12:39: IVP, Drug [place] Form: SOLN, Dosing Weight 104.545, kg, ONCALL, STAT, Start date: 09/05/20 6:39:00 CROP ROLLER, Duration: 1 doses or times, Dose = 2.2ml/kg, Max dose = 100ml -- "To be infused by Radiology Staff ONLY" Acetaminoph 2019-10 No Notes: Max Memoria en 2-06 acetaminop l 07:00: hen 4000 Raul 00 mg/day (4 gm/day). (Same as: Tylenol Extra Strength) Acetaminoph 2019-10 No Notes: Max Memoria en 2-06 acetaminop l 07:00: hen 4000 [place] 00 mg/day (4 gm/day). (Same as: Tylenol [...] l oral tablet 06:48: BID, # 180 [place] 00 tab, 1 Refill(s) amLODIPine 2019-10 Yes [...] l oral tablet 06:48: BID, # 180 [place] 00 tab, 1 Refill(s) amLODIPine 2019-10 Yes [...] tab, PO, l Tablet 06:48: Daily, # [place] 00 60 tab, 1 Refill(s) Trelegy 2019-10 [...] l oral tablet 06:48: BID, # 180 [place] 00 tab, 1 Refill(s) amLODIPine 2019-10 Yes 10 mg = 1 Me moria 10 mg oral 2-06 tab, PO, l tablet 06:48: Daily, # [place] 00 90 tab, 0 Refill(s) escitalopra 2019-10 [...] tab, PO, l Tablet 06:48: Daily, # [place] 00 60 tab, 1 Refill(s) Trelegy 2019-10 [...] tab, PO, l tablet 06:48: Daily, # [place] 00 90 tab, 0 Refill(s) escitalopra 2019-10 [...] No 12.5 gm, Memor ia 50% Syringe 2 25 mL, l (D50W) 06:47: Route: Raul 00 IVP, Drug Form: INJ, Dosing Weight 104.545, kg, PRN, PRN Blood Glucose Results, Start date: 09/05/20 0:47:00 CROP ROLLER, 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, Stop date: 10/05/20 0:46:00 CROP ROLLER, 0 Glucagon 2019-10 No 1 mg, Memoria 2-06 Route: IM, l 06:47: Drug form: [place] 00 PDR/INJ, PRN, Dosing Weight 104.545, kg, PRN Blood Glucose Results, Start date: 09/05/20 0:47:00 CROP ROLLER, 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, Stop date: 10/05/20 0:46:00 CROP ROLLER, 0 sennosides, 2019-10 No Notes: Jose Francisco zhang LONG TERM 2-06 (Same as: l 06:47: Senokot) POLYETHYLEN [...] Total Volume: 1,000, Start date: 09/05/20 0:47:00 CROP ROLLER, Duration: 1 day, Stop date: 09/06/20 0:46:00 CROP ROLLER, 1.97, m2, 0 Tums 2019-10 No Notes: Memoria 2-06 (Same As: l 06:47: Tums) Calcium Carbonate 500 mg = 200 mg elemental calcium Dose = mg calcium carbonate ( mg elemental calcium) Simethicone 2019-10 No Notes: Jose Francisco zhang 2-06 (Same as: l 06:47: Mylicon) Lubricant 2019-10 No Notes: Memori a Eye Drops 2- (Same as: l 06:47: Aquasite) Nasal Moist 2019-10 No Notes: Jose Francisco zhang 0.65% 2- (Same as: l solution 06:47: [place], Raul 00 Deep Sea Nasal [place]). Tessalon 2019-10 No Notes: Memoria Perles 2- (Same As: l 06:47: Tessalon Perles) "Do Not Crush" Guaifenesin 2019-10 No Notes: Jose Francisco zhang 2-06 (Same as: l 06:47: Organidin NR) Blistex 2019-10 No Notes: Memoria topical 11-06 Same as: l ointment 06:47: Blistex Ajay [...] Blood Glucose Results, Start date: 09/05/20 0:47:00 CROP ROLLER, 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, Stop date: 10/05/20 0:46:00 CROP ROLLER, 0 Glucagon 2019-10 No 1 mg, Memoria 11-06 Route: IM, l 06:47: Drug form: PDR/INJ, PRN, Dosing Weight 104.545, kg, PRN Blood Glucose Results, Start date: 09/05/20 0:47:00 CROP ROLLER, 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, Stop date: 10/05/20 0:46:00 CROP ROLLER, 0 sennosides, 2019-10 No Notes: Jose Francisco zhang LONG TERM 2-06 (Same as: l 06:47: Senokot) POLYETHYLEN 2019-10 No Notes: Jose Francisco zhang E GLYCOL 2-06 Dissolve l 3350 06:47: in 8 oz of water or juice. (Same as: Miralax) Ondansetron 2019-10 No Notes: Jose Francisco hzang 2-06 (Same as: l 06:47: Zofran) [place] 00 MEDICATION WASTE Product Size: 4 mg Product Wasted: ___ mg Melatonin 2019-10 No Notes: Memori a 2-06 (Same as: l 06:47: Melatonin) [place] 00 LR IV 1,000 2019-10 No 1,000 mL, M emoria mL 2-06 Rate: 100 l 06:47: ml/hr, Infuse over: 10 hr, Route: IV, Dosing Weight 104.545 kg, Total Volume: 1,000, Start date: 09/05/20 0:47:00 CROP ROLLER, Duration: 1 day, Stop date: 09/06/20 0:46:00 CROP ROLLER, 1.97, m2, 0 Tums 2019-10 No Notes: [...] 0.65% 2-06 (Same as: l solution 06:47: [place], Raul 00 Deep Sea Nasal [place]). Tessalon 2019-10 No Notes: Memoria Perles 2-06 [...] 2-06 25 mL, l (D50W) 06:47: Route: [place] 00 IVP, Drug Form: INJ, Dosing Weight 104.545, kg, PRN, PRN Blood Glucose Results, Start date: 09/05/20 0:47:00 CROP ROLLER, 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, Stop date: 10/05/20 0:46:00 CROP ROLLER, 0 Glucagon 2019-10 No 1 mg, Memoria 2-06 Route: IM, l 06:47: Drug form: [place] 00 PDR/INJ, PRN, Dosing Weight 104.545, kg, PRN Blood Glucose Results, Start date: 09/05/20 0:47:00 CROP ROLLER, 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, Stop date: 10/05/20 0:46:00 CROP ROLLER, 0 sennosides, 2019-10 No Notes: Jose Francisco zhang LONG TERM 2-06 (Same as: l 06:47: Senokot) POLYETHYLEN [...] Total Volume: 1,000, Start date: 09/05/20 0:47:00 CROP ROLLER, Duration: 1 day, Stop date: 09/06/20 0:46:00 CROP ROLLER, 1.97, m2, 0 Tums 2019-10 No Notes: Memoria 2-06 (Same As: l 06:47: Tums) Calcium Carbonate 500 mg = 200 mg elemental calcium Dose = mg calcium carbonate ( mg elemental calcium) Simethicone 2019-10 No Notes: Jose Francisco zhang 2-06 (Same as: l 06:47: Mylicon) [place] 00 Lubricant 2019-10 No Notes: Memori a Eye Drops 2-06 (Same as: l 06:47: Aquasite) [place] 00 Nasal Moist 2019-10 No Notes: Jose Francisco zhang 0.65% 2-06 (Same as: l solution 06:47: [place], [place] Deep Sea Nasal [place]). Tessalon 2019-10 No Notes: Memoria Perles 2-06 (Same As: l 06:47: Tessalon Ra[place] 00 Perles) "Do Not Crush" Guaifenesin 2019-10 No Notes: Jose Francisco zhang 2-06 (Same as: l 06:47: Organidin [place] 00 NR) Blistex 2019-10 No Notes: Memoria topical 2-06 Same as: l ointment 06:47: Blistex Ajay n 00 Albuterol 2019-10 No Notes: SEE Me moria 0.83 MG/ML 2-06 RT l Inhalant 06:47: DOCUMENTAT Her ivory Solution 00 ION (Same as: Proventil) Tessalon 2019-10 No Notes: Memoria Perles 2-06 (Same As: l 06:47: Tessalon [place] 00 Perles) "Do Not Crush" Guaifenesin 2019-10 [...] 25 mL, l (D50W) 06:47: Route: [place] 00 IVP, Drug Form: INJ, Dosing Weight 104.545, kg, PRN, PRN Blood Glucose Results, Start date: 09/05/20 0:47:00 CROP ROLLER, 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, Stop date: 10/05/20 0:46:00 CROP ROLLER, 0 Glucagon 2019-10 No 1 mg, Memoria 2-06 Route: IM, l 06:47: Drug form: 00 PDR/INJ, PRN, Dosing Weight 104.545, kg, PRN Blood Glucose Results, Start date: 09/05/20 0:47:00 CROP ROLLER, 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, Stop date: 10/05/20 0:46:00 CROP ROLLER, 0 sennosides, 2019-10 No Notes: Jose Francisco zhang LONG TERM 2-06 (Same as: l 06:47: Senokot) POLYETHYLEN [...] 2019-10 No 1,000 mL, M emoria mL 2- Rate: 100 l 06:47: ml/hr, Infuse over: 10 hr, Route: IV, Dosing Weight 104.545 kg, Total Volume: 1,000, Start date: 09/05/20 0:47:00 CROP ROLLER, Duration: 1 day, Stop date: 09/06/20 0:46:00 CROP ROLLER, 1.97, m2, 0 Tums 2019-10 No Notes: [...] 0.65% 2-06 (Same as: l solution 06:47: [place], [place] 00 Deep Sea Nasal [place]). Hydralazine 2019-10 No Notes: Jose Francisco zhang 2-06 (Same as: l 06:45: Apresoline [place] 00 ) Push over 5 minutes Hydralazine 2019-10 No Notes: Jose Francisco zhang 2-06 (Same as: l 06:45: Apresoline [place] 00 ) Push over 5 minutes Hydralazine 2019-10 No Notes: Jose Francisco zhang 2-06 (Same as: l 06:45: Apresoline [place] 00 ) Push over 5 minutes Hydralazine 2019-10 No Notes: Jose Francisco zhang 2-06 (Same as: l 06:45: Apresoline [place] 00 ) Push over 5 minutes Acetaminoph 2019-10 No 1 tab, Jose Francisco zhang en 325 MG / 2-06 Route: PO, l Hydrocodone 04:07: Drug Form: [place] Bitartrate 00 TAB, 5 MG Oral Dosing Tablet Weight 104.545, kg, ONCE, STAT, Start date: 09/04/20 22:07:00 CROP ROLLER, Stop date: 09/04/20 22:07:00 CROP ROLLER Acetaminoph 2019-10 No 1 tab, Jose Francisco zhang en 325 MG / 2-06 Route: PO, l Hydrocodone 04:07: Drug Form: [place] Bitartrate 00 TAB, 5 MG Oral Dosing Tablet Weight 104.545, kg, ONCE, STAT, Start date: 09/04/20 22:07:00 CROP ROLLER, Stop date: 09/04/20 22:07:00 CROP ROLLER Acetaminoph 2019-10 No 1 tab, Jose Francisco zhang en 325 MG / 2-06 Route: PO, l Hydrocodone 04:07: Drug Form: [place] Bitartrate 00 TAB, 5 MG Oral Dosing Tablet Weight 104.545, kg, ONCE, STAT, Start date: 09/04/20 22:07:00 CROP ROLLER, Stop date: 09/04/20 22:07:00 CROP ROLLER Acetaminoph 2019-10 No 1 tab, Jose Francisco zhang en 325 MG / 2-06 Route: PO, l Hydrocodone 04:07: Drug Form: [place] Bitartrate 00 TAB, 5 MG Oral Dosing Tablet Weight 104.545, kg, ONCE, STAT, Start date: 09/04/20 22:07:00 CROP ROLLER, Stop date: 09/04/20 22:07:00 CROP ROLLER HYDROcodone 2020-0 2020- No 1{tbl} 1 tablet, Univers -acetaminop 06-28 Oral, ity of hen (NORCO 20:30: 19:23 ONCE, 1 [place] as 5) 5-325 mg 00 :00 dose, Mon Med ical tablet 1 06/28/20 at [facility] h tablet 1530, DIMITRIS metoprolol 2019-0 2020- No 50mg 50 mg, Univ ers succinate 06-28 Oral, ity of XL (TOPROL 18:15: 17:25 ONCE, 1 [place] as XL) tablet 00 :00 dose, Mon Medi tania 50 mg 06/28/20 at Branch 1315, Routine lisinopriL 2020- No 40mg 40 mg, Univ ers (PRINIVIL,Z 06-28 Oral, ity of ESTRIL) 18:15: 17:25 ONCE, 1 [place] tablet 40 00 :00 dose, Mon Medic al mg 06/28/20 at Branch 1315, Routine amLODIPine 2019- No 5mg 5 mg, Unive rs (NORVASC) 06-28 Oral, ity of tablet 5 mg 18:15: 17:25 ONCE, 1 [place] :[place] dose, [facility] Medical 06/28/20 at Branch 1315, DIMITRIS FENTanyl PF 2020- No 25ug 25 mcg, Un martha (SUBLIMAZE 06-28 Slow IV ity o f (PF)) 18:15: 17:30 Push, [place] injection 00 :00 ONCE, 1 Medical 25 mcg dose, [facility] Branch 06/28/20 at 1315, STAT diphenoxyla 2019-0 Yes 1{tbl} Take 1 Un martha te-atropine 06-28 tablet by ity of (LOMOTIL) 17:14: mouth [place] 2.5-0.025 43 every 6 Medical mg tablet (six) Branch hours as needed. ALBUTEROL 2020-0 Yes Inhale. [facility] SULFATE 06-28 ity of INHALE 17:14: [place] 43 Medical Branch misoprostol 2019-0 2020- No 200ug Take 200 Univers (CYTOTEC) 06-28 mcg by ity of 200 mcg 17:13: 00:00 mouth [place] tablet 46 :00 daily. Medical Branch fenofibrate 2020-0 2020- No 145mg Take 145 Univers (TRICOR) 9-28 09-28 mg by ity of 145 mg 17:13: 00:00 mouth [place] tablet 14 :00 daily. Medical Branch diphenoxyla 2020-0 Yes 1{tbl} Take 1 Un martha te-atropine 9-28 tablet by ity of (LOMOTIL) 12:14: mouth [place] 2.5-0.025 43 every 6 Medical mg tablet (six) Branch hours as needed. ALBUTEROL 2020-0 Yes Inhale. Unive rs SULFATE 9-28 ity of INHALE 12:14: [place] 43 Medical Branch acetaminoph 2020-0 Yes 4647 1{tbl} [...] Jessie nn 00 tab, 3 Refill(s), Pharmacy: [facility] #[id number], 149.86, cm, 05/25/20 13:41:00 CDT, Height, 95.455, kg, 05/25/20 13:41:00 CDT, Weight primidone 2020-0 Yes 50 mg = 1 Mem oria 50 mg oral 8-25 tab, PO, l tablet 19:03: BID, # 180 Jessie nn 00 tab, 3 Refill(s), Pharmacy: [facility] #[id number], 149.86, cm, 05/25/20 13:41:00 CDT, Height, 95.455, kg, 05/25/20 13:41:00 CDT, Weight primidone 2020-0 Yes 50 mg = 1 Mem oria 50 mg oral 8-25 tab, PO, l tablet 19:03: BID, # 180 Jessie nn 00 tab, 3 Refill(s), Pharmacy: [id number], 149.86, cm, 05/25/20 13:41:00 CDT, Height, 95.455, kg, 05/25/20 13:41:00 CDT, Weight primidone 2020-0 Yes 50 mg = 1 Mem oria 50 mg oral 8-25 tab, PO, l tablet 19:03: BID, # 180 Jessie nn 00 tab, 3 Refill(s), Pharmacy: [facility] #[id number], 149.86, cm, 05/25/20 13:41:00 CDT, Height, 95.455, kg, 05/25/20 13:41:00 CDT, Weight primidone 2020-0 No 50 mg = 1 Mem oria 50 mg oral 6-25 tab, PO, l tablet 13:48: Bedtime, # Jessie nn 00 90 tab, 3 Refill(s), Pharmacy: [facility] #[id number], 149.86, cm, 03/24/20 9:12:00 CDT, Height, 90.909, kg, 03/24/20 9:12:00 CDT, Weight primidone 2020-0 No 50 mg = 1 Mem oria 50 mg oral 6-25 tab, PO, l tablet 13:48: Bedtime, # Jessie nn 00 90 tab, 3 Refill(s), Pharmacy: [facility] #[id number], 149.86, cm, 03/24/20 9:12:00 CDT, Height, 90.909, kg, 03/24/20 9:12:00 CDT, Weight primidone 2020-0 No 50 mg = 1 Mem oria 50 mg oral 6-25 tab, PO, l tablet 13:48: Bedtime, # Jessie nn 00 90 tab, 3 Refill(s), Pharmacy: [id number], 149.86, cm, 03/24/20 9:12:00 CDT, Height, 90.909, kg, 03/24/20 9:12:00 CDT, Weight primidone 2020-0 No 50 mg = 1 Mem oria 50 mg oral 6-25 tab, PO, l tablet 13:48: Bedtime, # Jessie nn 00 90 tab, 3 Refill(s), Pharmacy: [id number], 149.86, cm, 03/24/20 9:12:00 CDT, Height, 90.909, kg, 03/24/20 9:12:00 CDT, Weight donepezil 2020-0 Yes 10 mg = 1 Mem oria 10 mg oral 6-24 tab, PO, l tablet 14:32: Daily, # Raul 00 30 tab, 3 Refill(s), Pharmacy: [id number], 149.86, cm, 03/24/20 9:12:00 CDT, Height, 90.909, kg, 03/24/20 9:12:00 CDT, Weight primidone 2020-0 No 50 mg = 1 Mem oria 50 mg oral 6-24 tab, PO, l tablet 14:32: Bedtime, X Jessie nn 00 30 day, # 30 tab, 3 Refill(s), Pharmacy: [facility] #[id number], 149.86, cm, 03/24/20 9:12:00 CDT, Height, 90.909, kg, 03/24/20 9:12:00 CDT, Weight donepezil 2020-0 Yes 10 mg = 1 Mem oria 10 mg oral 6-24 tab, PO, l tablet 14:32: Daily, # Raul 00 30 tab, 3 Refill(s), Pharmacy: [facility] #[id number], 149.86, cm, 03/24/20 9:12:00 CDT, Height, 90.909, kg, 03/24/20 9:12:00 CDT, Weight primidone 2020-0 No 50 mg = 1 Mem oria 50 mg oral 6-24 tab, PO, l tablet 14:32: Bedtime, X Jessie nn 30 day, # 30 tab, 3 Refill(s), Pharmacy: [facility] #[id number], 149.86, cm, 03/24/20 9:12:00 CDT, Height, 90.909, kg, 03/24/20 9:12:00 CDT, Weight donepezil 2020-0 Yes 10 mg = 1 Mem oria 10 mg oral 6-24 tab, PO, l tablet 14:32: Daily, # Raul 00 30 tab, 3 Refill(s), Pharmacy: [facility] #[id number], 149.86, cm, 03/24/20 9:12:00 CDT, Height, 90.909, kg, 03/24/20 9:12:00 CDT, Weight primidone 2020-0 No 50 mg = 1 Mem oria 50 mg oral 6-24 tab, PO, l tablet 14:32: Bedtime, X Jessie nn day, # 30 tab, 3 Refill(s), Pharmacy: [facility] #[id number], 149.86, cm, 03/24/20 9:12:00 CDT, Height, 90.909, kg, 03/24/20 9:12:00 CDT, Weight donepezil 2020-0 Yes 10 mg = 1 Mem oria 10 mg oral 6-24 tab, PO, l tablet 14:32: Daily, # [place] 00 30 tab, 3 Refill(s), Pharmacy: [facility] #[id number], 149.86, cm, 03/24/20 9:12:00 CDT, Height, 90.909, kg, 03/24/20 9:12:00 CDT, Weight primidone 2020-0 No 50 mg = 1 Mem oria 50 mg oral 6-24 tab, PO, l tablet 14:32: Bedtime, X Jessie nn 00 30 day, # 30 tab, 3 Refill(s), Pharmacy: [facility] #[id number], 149.86, cm, 03/24/20 9:12:00 CDT, Height, 90.909, kg, 03/24/20 9:12:00 CDT, Weight sucralfate Yes [id number] .[id number][in_ Apply 0.25 Univers malate, 5- us] Inches as ity of polymerized 00:00: directed 4 [place] 1 gram/10 00 (four) Medical mL Pste times Branch daily as needed for Pain (scale 1-3). sucralfate 2020- No [id number][in_ Apply 0.25 Univers malate, 02-18- us] Inches as ity of polymerized 00:00: 00:00 directed 4 [place] 1 gram/10 00 :00 (four) Medical mL [...] 7-26 MISC, l 21:45: Daily, # 1 [place] 00 ea, 0 Refill(s) [place] Yes 1 ea, Memoria 7-26 MISC, l 21:45: Daily, # 1 [place] 00 ea, 0 Refill(s) [place] Yes 1 ea, Memoria 7-26 MISC, l 21:45: Daily, # 1 [place] 00 ea, 0 Refill(s) [place] 2019-0 Yes 1 ea, Memoria 7-26 MISC, l 21:45: Daily, # 1 [place] 00 ea, 0 Refill(s) Adult 2019-0 Yes 81 mg = 1 Memoria Aspirin 81 6-21 tab, CHEW, l mg oral 20:18: Daily, # Ajay n tablet, 00 30 tab, 3 chewable Refill(s), Pharmacy: [facility] #[id number] Adult 2019-0 Yes 81 mg = 1 Memoria Aspirin 81 6-21 tab, CHEW, l mg oral 20:18: Daily, # Ajay n tablet, 00 30 tab, 3 chewable Refill(s), Pharmacy: [facility] #[id number] Adult 2019- Yes 81 mg = 1 Memoria Aspirin 81 6-21 tab, CHEW, l mg oral 20:18: Daily, # Ajay n tablet, 00 30 tab, 3 chewable Refill(s), Pharmacy: [facility] #[id number] Adult 2019-0 Yes 81 mg = 1 Memoria Aspirin 81 6-21 tab, CHEW, l mg oral 20:18: Daily, # Ajay n tablet, 00 30 tab, 3 chewable Refill(s), Pharmacy: [facility] #[id number] levothyroxi 2018- Yes 125 Memori a ne 125 mcg 5-24 microgram l (0.125 mg) 20:29: = 1 tab, Her [place] oral tablet 00 PO, Daily, # 30 tab, 0 Refill(s) gabapentin 2018- Yes 300 mg = 1 M emoria 300 MG Oral 5-24 cap, PO, l Capsule 20:29: BID, # 90 Jessie nn 00 cap, 1 Refill(s) levothyroxi 2018-0 Yes 125 Memori a ne 125 mcg 5-24 microgram l (0.125 mg) 20:29: = 1 tab, Her [place] oral tablet 00 PO, Daily, # 30 tab, 0 Refill(s) gabapentin 2019-0 Yes 300 mg = 1 M emoria 300 MG Oral 5-24 cap, PO, l Capsule 20:29: BID, # 90 Jessie nn 00 cap, 1 Refill(s) levothyroxi 2018-0 Yes 125 Memori a ne 125 mcg 5-24 microgram l (0.125 mg) 20:29: = 1 tab, Her [place] oral tablet 00 PO, Daily, # 30 tab, 0 Refill(s) gabapentin 2019-0 Yes 300 mg = 1 M emoria 300 MG Oral 5-24 cap, PO, l Capsule 20:29: BID, # 90 Jessie nn 00 cap, 1 Refill(s) levothyroxi 2019- Yes 125 Memori a ne 125 mcg 5-24 microgram l (0.125 mg) 20:29: = 1 tab, [place] oral tablet 00 PO, Daily, # 30 tab, 0 Refill(s) gabapentin 2019- Yes 300 mg = 1 M emoria 300 MG Oral 5-24 cap, PO, l Capsule 20:29: BID, # 90 Jessie nn 00 cap, 1 Refill(s) metoprolol 2019 Yes 50 mg = 1 Me moria 50 mg oral 5-24 tab, PO, l tablet, 20:06: Daily, # Ajay n extended 00 30 tab, 0 release Refill(s) Escitalopra 2019 Yes 20 mg = 1 M emoria [...] Raul 00 30 tab, 0 Refill(s) donepezil 2019 Yes 10 mg = 1 Mem oria 10 mg oral 5-24 tab, PO, l tablet 20:06: Daily, # [place] 00 30 tab, 0 Refill(s) ProAir HFA Yes 1 - 2 Memori a 5-24 puffs, PO, l 20:06: Q4H, PRN [place] 00 Wheezing / cough / shortness of [...] tab, PO, l tablet 20:06: BID, 0 [place] 00 Refill(s) lisinopril 2019 Yes 40 mg [...] 5-24 puffs, PO, l 20:06: Q4H, PRN [place] 00 Wheezing / cough / shortness of [...] tab, PO, l tablet 20:06: BID, 0 [place] 00 Refill(s) lisinopril 2019 Yes 40 mg = 1 Me moria 40 mg oral 5-24 tab, PO, l tablet 20:06: Daily, # [place] 00 30 tab, 0 Refill(s) donepezil Yes 10 mg = 1 Mem oria 10 mg oral 5-24 tab, PO, l tablet 20:06: Daily, # [place] 00 30 tab, 0 Refill(s) ProAir HFA [...] tab, PO, l tablet 20:06: Daily, # [place] 00 90 tab, 0 Refill(s) Atropine Yes [...] tab, PO, l tablet 20:06: BID, 0 [place] 00 Refill(s) lisinopril Yes 40 mg = 1 Me moria 40 mg oral 5-24 tab, PO, l tablet 20:06: Daily, # [place] 00 30 tab, 0 Refill(s) donepezil 2019 Yes 10 mg = 1 Mem oria 10 mg oral 5-24 tab, PO, l tablet 20:06: Daily, # [place] 00 30 tab, 0 Refill(s) ProAir HFA Yes 1 - 2 Memori a 5-24 puffs, PO, l 20:06: Q4H, PRN [place] Wheezing / cough / shortness of breath, # 1 ea, 0 Refill(s) acetaminoph 2017-10 Yes Univer s en-codeine 1-18 [...] mouth ity of XL (TOPROL 17:04: daily. [place] XL) 50 mg 36 Medical 24 hr Branch tablet rOPINIRole 2017-0 Yes 2mg Take 2 mg Un martha (REQUIP) 2 3-07 by mouth 2 ity of mg tablet 17:04: (two) [place] 36 times Medical daily. Branch levothyroxi 2017 Yes 125ug Take 125 U nivers ne 3-07 mcg by ity of (SYNTHROID) 17:04: mouth [place] 125 mcg 36 daily. Medical tablet Branch donepezil 2017 Yes 10mg Take 10 mg Un martha (ARICEPT) 3-07 by mouth ity of 10 mg 17:04: daily. [place] tablet 36 Medical Branch misoprostol 2017 Yes 200ug Take 200 U nivers (CYTOTEC) 3-07 mcg by ity of 200 mcg 17:04: mouth [place] tablet 36 daily. Medical Branch amLODIPine Yes 5mg Take 5 mg Un martha (NORVASC) 5 3-07 by mouth ity of mg tablet 17:04: daily. [place] [address] Medical Branch lovastatin 0 Yes 20mg Take [...] mouth ity of XL (TOPROL 17:04: daily. [place] XL) 50 mg 36 Medical 24 hr Branch tablet rOPINIRole 2017-0 Yes 2mg Take 2 mg Un martha (REQUIP) 2 3-07 by mouth 2 ity of mg tablet 17:04: (two) [place] 36 times Medical daily. Branch levothyroxi 20170 Yes 125ug Take 125 U nivers ne 3-07 mcg by ity of (SYNTHROID) 17:04: mouth [place] 125 mcg 36 daily. Medical tablet Branch donepezil 2017 Yes 10mg Take 10 mg Un martha (ARICEPT) 3-07 by mouth ity of 10 mg 17:04: daily. [place] tablet Medical Branch misoprostol 2017- Yes 200ug Take 200 U nivers (CYTOTEC) 3-07 mcg by ity of 200 mcg 17:04: mouth [place] tablet 36 daily. Medical Branch amLODIPine 2017 Yes 5mg Take 5 mg Un martha (NORVASC) 5 3-07 by mouth ity of mg tablet 17:04: daily. [place] [address] Medical Branch lovastatin 20170 Yes 20mg Take 20 mg U nivers (MEVACOR) 3-07 by mouth ity of 20 mg 17:04: daily. [place] tablet Medical Branch lisinopril 20170 Yes 40mg Take 40 mg U nivers (PRINIVIL,Z 3-07 by mouth ity of ESTRIL) 40 17:04: daily. [place] mg tablet 36 Medical Branch escitalopra Yes [...] mouth ity of XL (TOPROL 17:04: daily. [place] XL) 50 mg 36 Medical 24 hr [...] mouth ity of mg tablet 17:04: daily. [place] [address] Medical Branch lovastatin 2017-0 Yes 20mg Take [...] ity o f 40 mg 11:04: daily. [place] capsule 36 Medical Branch metoprolol 2017-0 Yes 50mg Take 50 mg U nivers succinate 3-07 by mouth ity of XL (TOPROL 11:04: daily. [place] XL) 50 mg 36 Medical 24 hr Branch tablet rOPINIRole 2017-0 Yes 2mg Take 2 mg Un martha (REQUIP) 2 3-07 by mouth 2 ity of mg tablet 11:04: (two) [place] 36 times Medical daily. Branch levothyroxi 2017-0 Yes 125ug Take 125 U nivers ne 3-07 mcg by ity of (SYNTHROID) 11:04: mouth [place] 125 mcg 36 daily. Medical tablet Branch donepezil Yes 10mg Take 10 mg Un martha (ARICEPT) 3-07 by mouth ity of 10 mg 11:04: daily. [place] tablet 36 Medical Branch amLODIPine Yes 5mg Take 5 mg Un martha (NORVASC) 5 3-07 by mouth ity of mg tablet 11:04: daily. [place] [address] Medical Branch lovastatin Yes 20mg Take 20 mg U nivers (MEVACOR) 3-07 by mouth ity of 20 mg 11:04: daily. [place] tablet 36 Medical Branch Advair Advair No Advair Devoted Diskus 250 Diskus 250 Diskus 250 Medical mcg-50 mcg-50 mcg-50 Group mcg/dose mcg/dose mcg/dose powder for powder for powder for inhalation inhalation inhalation INHALE 1 INHALE 1 INHALE 1 PUFF BY PUFF BY PUFF BY MOUTH TWICE MOUTH TWICE MOUTH DAILY DAILY TWICE DAILY albuterol albuterol No albuterol Devoted sulfate HFA sulfate HFA sulfate Medical 90 90 HFA 90 Group mcg/actuati mcg/actuati mcg/actuat on aerosol on aerosol ion inhaler inhaler aerosol INHALE 2 INHALE 2 inhaler PUFFS BY PUFFS BY INHALE 2 MOUTH EVERY MOUTH EVERY PUFFS BY 6 HOURS 6 HOURS MOUTH EVERY 6 HOURS amlodipine amlodipine No amlodipine Devoted 10 mg 10 mg 10 mg Medical tablet TAKE tablet TAKE tablet Group 1 TABLET BY 1 TABLET BY TAKE 1 MOUTH EVERY MOUTH EVERY TABLET BY DAY DAY MOUTH EVERY DAY amlodipine amlodipine No amlodipine Devoted 5 mg [...] Oxalate 20 MG 20 MG 20 MG Breo Breo No Breo Devoted Ellipta 200 Ellipta 200 Ellipta Medical mcg-25 mcg-25 200 mcg-25 Group mcg/dose mcg/dose mcg/dose powder for powder for powder for inhalation inhalation inhalation TAKE 1 PUFF TAKE 1 PUFF TAKE 1 BY MOUTH BY MOUTH PUFF BY EVERY DAY EVERY DAY MOUTH EVERY DAY Cephalexin Cephalexin No Cephalexin traMADol traMADol No traMADol HCl HCl HCl rOPINIRole rOPINIRole No 1{table BID rOPINIRole HCl 2 MG HCl 2 MG t} HCl 2 MG Diclofenac Diclofenac No Diclofenac Sodium 1 % Sodium 1 % Sodium 1 % Lomotil Lomotil No Lomotil Sulfamethox Sulfamethox No Sulfametho azole-Trime azole-Trime xazole-Tri thoprim thoprim methoprim bupropion bupropion No bupropion Devoted HCl XL 150 HCl XL 150 HCl XL 150 Medical mg 24 hr mg 24 hr mg 24 hr Anadn up tablet, tablet, tablet, extended extended extended release release release TAKE 1 TAKE 1 TAKE 1 TABLET BY TABLET BY TABLET BY MOUTH TWICE MOUTH TWICE MOUTH A DAY A DAY TWICE A DAY Trelegy Trelegy No Trelegy Ellipta Ellipta Ellipta Furosemide Furosemide No Furosemide Lisinopril Lisinopril No 1{table QD Lisinopril 40 MG 40 MG t} 40 MG Omeprazole Omeprazole No QD Omeprazole 40 MG 40 MG 40 MG Flublok Flublok No Flublok Quadrivalen Quadrivalen Quadrivale t t nt carvedilol carvedilol No carvedilol Devoted 6.25 mg [...] en-Codeine en-Codeine hen-Codein #3 #3 e #3 escitalopra escitalopra No escitalopr Devoted m 20 [...] Macro Monohyd Macro Gabapentin Gabapentin No Gabapentin famotidine famotidine No famotidine Devoted 20 mg [...] Pantoprazo e Sodium e Sodium le Sodium gabapentin gabapentin No gabapentin Devoted 300 mg 300 mg 300 mg Medical capsule capsule capsule Group TAKE 1 TAKE 1 TAKE 1 CAPSULE BY CAPSULE BY CAPSULE BY MOUTH TWICE MOUTH TWICE MOUTH A DAY A DAY TWICE A DAY Carvedilol Carvedilol No Carvedilol Famotidine Famotidine No Famotidine Metoprolol Metoprolol No Metoprolol Succinate Succinate Succinate ipratropium ipratropium No ipratropiu Devoted bromide 21 bromide 21 m bromide Medical mcg (0.03 mcg (0.03 21 mcg Anand up %) nasal %) nasal (0.03 %) spray USE spray USE nasal SPRAY UP TO SPRAY UP TO spray USE 4 TIMES 4 TIMES SPRAY UP DAILY DAILY TO 4 TIMES DAILY Escitalopra Escitalopra No 1{table QD Escitalopr m Oxalate m Oxalate t} am Oxalate 20 MG 20 MG 20 MG Cephalexin Cephalexin No Cephalexin traMADol traMADol No traMADol HCl HCl HCl levothyroxi levothyroxi No levothyrox Devoted ne 125 [...] Sodium 1 % Lomotil Lomotil No Lomotil lisinopril lisinopril No 1 Q1D lisinopril Devoted 40 mg 40 mg 40 mg Medical tablet Take tablet Take tablet Group 1 tablet 1 tablet Take 1 every day every day tablet by oral by oral every day route. route. by oral route. Sulfamethox Sulfamethox No Sulfametho azole-Trime azole-Trime xazole-Tri thoprim thoprim methoprim Trelegy Trelegy No Trelegy Ellipta Ellipta Ellipta Furosemide Furosemide No Furosemide lovastatin lovastatin No lovastatin Devoted 20 mg [...] Flublok Quadrivalen Quadrivalen Quadrivale t t nt metoprolol metoprolol No metoprolol Devoted succinate succinate succinate Medical 50 mg daily 50 mg daily 50 mg Group daily amLODIPine amLODIPine No 1{table QD amLODIPine Besylate 5 Besylate 5 t} Besylate 5 MG MG MG Primidone Primidone No Primidone Potassium Potassium No Potassium Chloride Chloride Chloride Neeta ER Neeta ER Neeta ER omeprazole omeprazole No omeprazole Devoted 40 mg 40 mg 40 mg Medical capsule,del capsule,del capsule,de Group ayed ayed layed release release release TAKE 1 TAKE 1 TAKE 1 CAPSULE BY CAPSULE BY CAPSULE BY MOUTH EVERY MOUTH EVERY MOUTH DAY DAY EVERY DAY Levothyroxi Levothyroxi No Levothyrox ne Sodium ne Sodium ine Sodium Donepezil Donepezil No 1{table QD Donepezil HCl 10 MG HCl 10 MG t} HCl 10 MG buPROPion buPROPion No buPROPion HCl ER (XL) HCl ER (XL) HCl ER (XL) potassium potassium No potassium Devoted chloride ER chloride ER chloride Medical 10 mEq 10 mEq ER 10 mEq Group capsule,ext capsule,ext capsule,ex ended ended tended release release release TAKE 1 TAKE 1 TAKE 1 CAPSULE BY CAPSULE BY CAPSULE BY MOUTH EVERY MOUTH EVERY MOUTH DAY DAY EVERY DAY Flublok Flublok No Flublok Quadrivalen Quadrivalen Quadrivale t t nt Potassium Potassium No Potassium Chloride Chloride Chloride Neeta ER Neeta ER Neeta ER Diclofenac Diclofenac No Diclofenac Sodium 1 % Sodium 1 % Sodium 1 % primidone primidone No primidone Devoted 50 mg 50 mg 50 mg Medical tablet TAKE tablet TAKE tablet Group 1 TABLET BY 1 TABLET BY TAKE 1 MOUTH MOUTH TABLET BY EVERYDAY AT EVERYDAY AT MOUTH BEDTIME BEDTIME EVERYDAY AT BEDTIME rOPINIRole rOPINIRole No 1{table BID rOPINIRole HCl 2 MG HCl 2 MG t} HCl 2 MG Diclofenac Diclofenac No Diclofenac Sodium 1 % Sodium 1 % Sodium 1 % Albuterol Albuterol No Albuterol Sulfate HFA Sulfate HFA Sulfate HFA ropinirole ropinirole No ropinirole Devoted 2 mg tablet 2 mg tablet 2 mg M edical TAKE 1 TAKE 1 tablet Group TABLET BY TABLET BY TAKE 1 MOUTH TWICE MOUTH TWICE TABLET BY A DAY A DAY MOUTH TWICE A DAY Chlorhexidi Chlorhexidi No Chlorhexid ne ne ine Gluconate Gluconate Gluconate traMADol traMADol No traMADol HCl HCl HCl buPROPion buPROPion No buPROPion HCl ER (XL) HCl ER (XL) HCl ER (XL) spironolact spironolact No spironolac Devoted one 25 mg one 25 mg tone 25 mg Medical tablet TAKE tablet TAKE tablet Group 1 TABLET BY 1 TABLET BY TAKE 1 MOUTH EVERY MOUTH EVERY TABLET BY DAY DAY MOUTH EVERY DAY Lovastatin Lovastatin No QD Lovastatin 20 MG 20 MG 20 MG Furosemide Furosemide No Furosemide Potassium Potassium No Potassium Chloride ER Chloride ER Chloride ER topiramate topiramate No topiramate Devoted 25 mg 25 mg 25 mg Medical tablet TAKE tablet TAKE tablet Group 1 TABLET BY 1 TABLET BY TAKE 1 MOUTH AT MOUTH AT TABLET BY BEDTIME BEDTIME MOUTH AT BEDTIME Lomotil Lomotil No Lomotil Gabapentin Gabapentin No Gabapentin Omeprazole Omeprazole No QD Omeprazole 40 MG 40 MG 40 MG Trelegy Trelegy No Trelegy Devote d Ellipta 100 Ellipta 100 Ellipta Medical mcg-62.5 mcg-62.5 100 Group mcg-25 mcg mcg-25 mcg mcg-62.5 powder for powder for mcg-25 mcg inhalation inhalation powder for INHALE 1 INHALE 1 inhalation PUFF BY PUFF BY INHALE 1 MOUTH EVERY MOUTH EVERY PUFF BY DAY DAY MOUTH EVERY DAY Nitrofurant Nitrofurant No Nitrofuran oin Monohyd oin [...] Mupirocin Mupirocin No Mupirocin Calcium Calcium Calcium Vital Signs Vital Name Observation Time Observation Value Comments Source Systolic blood 2022-08-05 20:00:00 122 mm[Hg] [facility] Diastolic blood 2022-08-05 20:00:00 77 mm[Hg] [facility] Heart rate 2022-08-05 20:00:00 50 /min [facility] Respiratory rate 2022-08-05 20:00:00 18 /min [facility] Oxygen saturation in 2022-08-05 20:00:00 94 /min [facility] Arterial blood [facility] Body temperature 2022-08-05 17:24:00 36 Tracee [facility] Body height 2022-08-05 17:24:00 149.9 cm [facility] Body weight 2022-08-05 17:24:00 83.915 kg [facility] BMI 2022-08-05 17:24:00 37.37 kg/m2 [facility] height 2022-07-27 13:15:00 59 [in_i] [facility] weight 2022-07-27 13:15:00 188.2 [lb_av] [facility] temperature 2022-07-27 13:15:00 97.6 [degF] [facility] bmi 2022-07-27 13:15:00 38.01 kg/m2 [facility] blood pressure 2022-07-27 13:15:00 125 mm[Hg] [facility] - systolic [facility] blood pressure 2022-07-27 13:15:00 82 mm[Hg] [facility] - diastolic [facility] height 2022-06-15 13:30:00 59 [in_i] [facility] weight 2022-06-15 13:30:00 193 [lb_av] [facility] temperature 2022-06-15 13:30:00 98.1 [degF] [facility] bmi 2022-06-15 13:30:00 38.98 kg/m2 [facility] blood pressure 2022-06-15 13:30:00 128 mm[Hg] [facility] - systolic [facility] blood pressure 2022-06-15 13:30:00 76 mm[Hg] [facility] - diastolic [facility] height 2021-10-17 14:30:00 59 [in_i] [facility] weight 2021-10-17 14:30:00 220 [lb_av] [facility] temperature 2021-10-17 14:30:00 97.9 [degF] [facility] bmi 2021-10-17 14:30:00 44.43 kg/m2 [facility] - [facility] blood pressure 2021-10-17 14:30:00 126 mm[Hg] [facility] - systolic [facility] blood pressure 2021-10-17 14:30:00 74 mm[Hg] [facility] - diastolic [facility] Systolic blood 2020-06-28 19:30:00 180 mm[Hg] Univer sity of pressure [facility] Diastolic blood 2020-06-28 19:30:00 82 mm[Hg] Unive rsity of pressure [facility] Heart rate 2020-06-28 19:30:00 61 /min [facility] Respiratory rate 2020-06-28 19:13:00 17 /min [facility] Oxygen saturation in 2020-06-28 19:13:00 96 /min [facility] Body temperature 2020-06-28 16:54:00 36.33 Tracee [facility] Body weight 2020-06-28 16:54:00 95.255 kg [facility] BMI 2020-06-28 16:54:00 42.41 kg/m2 [facility] Systolic blood 2020-06-28 19:30:00 180 mm[Hg] [facility] Diastolic blood 2020-06-28 19:30:00 82 mm[Hg] [facility]ive [facility] Heart rate 2020-06-28 19:30:00 61 /min [facility] Respiratory rate 2020-06-28 19:13:00 17 /min [facility] Oxygen saturation in 2020-06-28 19:13:00 96 /min [facility] Body temperature 2020-06-28 16:54:00 36.33 Tracee [facility] Body weight 2020-06-28 16:54:00 95.255 kg [facility] BMI 2020-06-28 16:54:00 42.41 kg/m2 [facility] Systolic blood 2020-02-19 19:23:00 160 mm[Hg] [facility] Diastolic blood 2020-02-19 19:23:00 84 mm[Hg] [facility]ive [facility] Heart rate 2020-02-19 19:23:00 63 /min [facility] Body temperature 2020-02-19 19:23:00 36.39 Tracee [facility] Respiratory rate 2020-02-19 19:23:00 15 /min [facility] Body height 2020-02-19 19:23:00 149.9 cm [facility] Body weight 2020-02-19 19:23:00 99.791 kg [facility] BMI 2020-02-19 19:23:00 44.43 kg/m2 [facility] Oxygen saturation in 2020-02-19 19:23:00 96 /min [facility] Systolic blood 2020-02-19 19:23:00 160 mm[Hg] [facility] Diastolic blood 2020-02-19 19:23:00 84 mm[Hg] [facility] Heart rate 2020-02-19 19:23:00 63 /min [facility] Body temperature 2020-02-19 19:23:00 36.39 Tracee [facility] Respiratory rate 2020-02-19 19:23:00 15 /min [facility] Body height 2020-02-19 19:23:00 149.9 cm [facility] Body weight 2020-02-19 19:23:00 99.791 kg [facility] BMI 2020-02-19 19:23:00 44.43 kg/m2 [facility] Oxygen saturation in 2020-02-19 19:23:00 96 /min [facility] Systolic blood 2019-12-10 04:00:00 202 mm[Hg] [facility] Diastolic blood 2019-12-10 04:00:00 92 mm[Hg] [facility] Heart rate 2019-12-10 04:00:00 75 /min [facility] Respiratory rate 2019-12-10 04:00:00 18 /min [facility] Oxygen saturation in 2019-12-10 04:00:00 98 /min [facility] Body temperature 2019-12-10 02:51:13 36.39 Tracee [facility] ersity of [facility] Body height 2019-12-10 02:28:00 162.6 cm [facility] [place] [facility] Body weight 2019-12-10 02:28:00 104.327 kg Universi [facility] of [facility] BMI 2019-12-10 02:28:00 39.48 kg/m2 Universi ty [facility] Systolic blood 2019-12-10 04:00:00 202 mm[Hg] Univer sity of pressure [facility] Diastolic blood 2019-12-10 04:00:00 92 mm[Hg] Unive rsity of pressure [facility] Heart rate 2019-12-10 04:00:00 75 /min Universi ty [facility] Respiratory rate 2019-12-10 04:00:00 18 /min [facility] in 2019-12-10 04:00:00 98 /min [facility] Body temperature 2019-12-10 02:51:13 36.39 Tracee [facility] ersity of [facility] Body height 2019-12-10 02:28:00 162.6 cm Universi [facility] of [facility] Body weight 2019-12-10 02:28:00 104.327 kg Universi ty [facility] BMI 2019-12-10 02:28:00 39.48 kg/m2 Universi ty [facility] Systolic (mm Hg) 2021-11-02 20:14:00 Jose Francisco rial Raul Diastolic (mm Hg) 2021-11-02 20:14:00 Mem [facility] Heart Rate 2021-11-02 20:14:00 [facility] Respitory Rate 2021-11-02 20:14:00 [facility] Height 2021-11-02 20:14:00 149.86 cm [facility] Weight 2021-11-02 20:14:00 [facility] BMI Calculated 2021-11-02 20:14:00 Mem[facility] Systolic (mm Hg) 2020-12-24 18:59:00 Jose Francisco [facility] [place] Diastolic (mm Hg) 2020-12-24 18:59:00 [facility] [place] Heart Rate 2020-12-24 18:59:00 [facility] Respitory Rate 2020-12-24 18:59:00 [facility] [place] Height 2020-12-24 18:59:00 149.86 cm [facility] Weight 2020-12-24 18:59:00 [facility] BMI Calculated 2020-12-24 18:59:00 Mem[facility] Systolic (mm Hg) 2020-09-06 20:47:00 Jose Francisco [facility] [place] Diastolic (mm Hg) 2020-09-06 20:47:00 Mem [facility] Temperature Oral (F) 2020-09-06 18:26:00 99.7 F [facility] Heart Rate 2020-09-06 18:26:00 [facility] Respitory Rate 2020-09-06 18:26:00 [facility] [place] Systolic (mm Hg) 2020-09-06 18:26:00 Jose Francisco [facility] [place] Diastolic (mm Hg) 2020-09-06 18:26:00 Mem [facility] Temperature Oral (F) 2020-09-06 14:09:00 98.1 F [facility] Heart Rate 2020-09-06 14:09:00 [facility] Respitory Rate 2020-09-06 14:09:00 [facility] [place] Systolic (mm Hg) 2020-09-06 14:09:00 Jose Francisco rial Raul Diastolic (mm Hg) 2020-09-06 14:09:00 Mem [facility] Temperature Oral (F) 2020-09-06 10:00:00 98.1 F [facility] Heart Rate 2020-09-06 10:00:00 [facility] Respitory Rate 2020-09-06 10:00:00 [facility] [place] Temperature Oral (F) 2020-09-06 06:30:00 97.5 F [facility] Heart Rate 2020-09-06 06:30:00 [facility] Respitory Rate 2020-09-06 06:30:00 [facility] Systolic (mm Hg) 2020-09-06 06:30:00 Jose Francisco [facility] [place] Diastolic (mm Hg) 2020-09-06 06:30:00 Mem [facility] Temperature Oral (F) 2020-09-06 02:45:00 97.8 F [facility] Heart Rate 2020-09-06 02:45:00 [facility] Respitory Rate 2020-09-06 02:45:00 [facility] [place] Systolic (mm Hg) 2020-09-06 02:45:00 Jose Francisco [facility] [place] Diastolic (mm Hg) 2020-09-06 02:45:00 Mem [facility] Temperature Oral (F) 2020-09-05 22:00:00 97 F [facility] Heart Rate 2020-09-05 22:00:00 [facility] Respitory Rate 2020-09-05 22:00:00 Memori [facility] Systolic (mm Hg) 2020-09-05 22:00:00 Jose Francisco [facility] [place] Diastolic (mm Hg) 2020-09-05 22:00:00 Mem [facility] Height 2020-09-05 02:46:00 124.46 cm [facility] BMI Calculated 2020-09-05 02:46:00 [facility] [place] Weight 2020-09-05 02:46:00 [facility] Systolic (mm Hg) 2020-05-25 18:41:00 Jose Francisco rial Raul Diastolic (mm Hg) 2020-05-25 18:41:00 Mem [facility] Heart Rate 2020-05-25 18:41:00 [facility] Respitory Rate 2020-05-25 18:41:00 Memori al [facility] Temperature Oral (F) 2020-05-25 18:41:00 98.6 F [facility] Height 2020-05-25 18:41:00 149.86 cm [facility] Weight 2020-05-25 18:41:00 [facility] BMI Calculated 2020-05-25 18:41:00 [facility] [place] Systolic (mm Hg) 2020-03-24 14:12:00 Jose Francisco [facility] [place] Diastolic (mm Hg) 2020-03-24 14:12:00 [facility] [place] Heart Rate 2020-03-24 14:12:00 [facility] Height 2020-03-24 14:12:00 149.86 cm [facility] Weight 2020-03-24 14:12:00 [facility] BMI Calculated 2020-03-24 14:12:00 Mem[facility] Systolic (mm Hg) 2019-07-24 19:29:00 Jose Francisco [facility] [place] Diastolic (mm Hg) 2019-07-24 19:29:00 Mem [facility] Heart Rate 2019-07-24 19:29:00 [facility] Respitory Rate 2019-07-24 19:29:00 Memori al [facility] Height 2019-07-24 19:29:00 149.86 cm [facility] Weight 2019-07-24 19:29:00 [facility] BMI Calculated 2019-07-24 19:29:00 [facility] [place] Systolic (mm Hg) 2019-05-21 19:25:00 Jose Francisco rial Raul Diastolic (mm Hg) 2019-05-21 19:25:00 [facility] [place] Heart Rate 2019-05-21 19:25:00 [facility] Respitory Rate 2019-05-21 19:25:00 [facility] [place] Height 2019-05-21 19:25:00 149.86 cm [facility] Weight 2019-05-21 19:25:00 [facility] BMI Calculated 2019-05-21 19:25:00 Memori al Ra[facility] Height 2019-03-21 19:45:00 147.32 cm [facility] Weight 2019-03-21 19:45:00 [facility] BMI Calculated 2019-03-21 19:45:00 [facility] [place] Respitory Rate 2019-03-21 19:45:00 [facility] Heart Rate 2019-03-21 19:45:00 [facility] Systolic (mm Hg) 2019-03-21 19:45:00 Jose Francisco [facility] [place] Diastolic (mm Hg) 2019-03-21 19:45:00 Mem [facility] Height 2019-02-21 20:01:00 149.86 cm [facility] Weight 2019-02-21 20:01:00 [facility] BMI Calculated 2019-02-21 20:01:00 Memori al [facility] Respitory Rate 2019-02-21 20:01:00 Memori al [facility] Heart Rate 2019-02-21 20:01:00 [facility] Systolic (mm Hg) 2019-02-21 20:01:00 Jose Francisco [facility] [place] Diastolic (mm Hg) 2019-02-21 20:01:00 [facility] [place] Procedures Procedure Date / Time Performed Performing Clinician Sourc e XR CHEST 1 VW 2022-08-05 17:51:10 Carly Sinclair [facility] TROPONIN I 2022-08-05 17:31:00 Carly Sinclair [facility] COMP. METABOLIC PANEL 2022-08-05 17:31:00 Carly Sinclair [facility] ([id number]) [facility] CBC WITH DIFF 2022-08-05 17:31:00 Carly Sinclair [facility] RAPID INFLUENZA A/B 2022-08-05 17:31:00 Carly Sinclair [facility] N-TERMINAL PRO-BNP 2022-08-05 17:31:00 Carly Sinclair [facility] COVID-19 (ID NOW 2022-08-05 17:31:00 Carly Sinclair [facility] RAPID TESTING) [facility] CONSENT/REFUSAL FOR 2022-08-05 17:11:04 Doctor Unassigned, No [facility] TREATMENT XR FOREARM 2 VW RIGHT 2020-06-28 17:49:01 Sariah [facility] XR SHOULDER 2+ VW 2020-06-28 17:49:01 Sariah [facility] CONSENT/REFUSAL FOR 2020-02-19 18:58:01 Doctor Unassigned, No [facility] [place] [facility] Name [facility] TREATMENT XR TIBIA FIBULA 2 VW 2019-12-10 03:20:47 Timi Aguirre [facility] Encounters Start End Encounter Admission Attending Care Care Encounter Source Date/Time Date/Time Type Type Clinicians Facility Department ID 2022-07-26 Outpatient STLMLC STLC [id number] Common 16:10:00 [id number] [facility] 2022-06-16 Outpatient STLMLC STLMLC [id number] Common 09:53:02 [id number] [facility] 2021-10-26 Outpatient STLMLC STLMLC [id number] Common 13:00:46 [id number] [facility] 2021-10-26 Outpatient STLMLC STLMLC [id number] Common 12:25:20 [id number] [facility] 2021-10-26 Outpatient STLMLC STLMLC [id number] Common 12:16:59 [id number] [facility] 2021-10-05 Inpatient NIC Sanderson, HCAWU ADMI [id number] [facility] 11:00:00 Anurag 64 [facility] 2021-07-29 Emergency [facility] [id number] [facility]-07[facility]28 Emergency [facility] [id number] Univers 21:53:33 [facility] 2022-09-29 2022-09-29 Inpatient KAYCEE AndersonWU SUGL [id number] [facility] 11:00:00 11:00:00 Anurag 98 [facility] 2022-09-05 2022-09-05 (TEL) STLMLC STLMLC [id number] Co mmon 00:00:00 00:00:00 [facility] 2022-08-05 2022-08-05 [facility] [id number] Univers 12:20:00 15:34:00 [facility] 2022-08-05 2022-08-05 [facility] [id number] Univers 12:20:00 15:34:00 Carly AMIN [id number] [facility] [id number] [facility] [id number] [facility] 084 Branch 2022-08-03 2022-08-03 Outpatient Canales_M DMG DMG [id number] [facility] 00:00:00 00:00:00 1103 Medica l Group 2022-07-27 2022-07-27 OFFICE STLMLC STLMLC [id number] Co mmon 00:00:00 00:00:00 VISIT Spirit ESTAB PT - CHI LEVEL 4 [facility] 2022-06-15 2022-06-15 OFFICE STLMLC STLMLC [id number] Co mmon 00:00:00 00:00:00 VISIT Spirit ESTAB PT - CHI LEVEL 4 [facility] 2022-06-12 2022-06-12 ESTRELLA Dinh 2.16.840. [id number]. CLAC [id number] [facility] 20:00:00 21:00:00 Valentín [id number] [facility] [id number] 2022-04-28 2022-04-28 Ambulatory nullFlavo MNA [id number] Memoria 19:00:00 19:00:00 Pre-Reg r Neurology 14 l Lana Carter 2022-04-28 2022-04-28 Ambulatory nullFlavo MNA [id number] Memoria 19:00:00 19:00:00 Pre-Reg r Neurology 14 l Frio [place] 2022-04-28 2022-04-28 Outpatient IE LY [id number] Memoria 14:00:00 14:00:00 14 [place] 2022-04-28 2022-04-28 [facility] [id number] 14:00:00 14:00:00 Jeffrey Jaziel Shafer 2022-04-14 2022-04-14 Outpatient [place] [id number] [facility] 07:15:00 07:15:00 0715 Medica l Group 2021-12-15 2021-12-15 (TEL) STLMLC STLMLC [id number] Co mmon 00:00:00 00:00:00 [facility] 2021-12-08 2021-12-08 (TEL) STLMLC STLMLC [id number] Co mmon 00:00:00 00:00:00 [facility] 2021-11-29 2021-11-29 OL DIG E/M STLMLC STLMLC [id number] Common 00:00:00 00:00:00 SVC 5-10 [facility]iri [facility] 2021-11-21 2021-11-21 (TEL) STLMLC STLMLC [id number] Co mmon 00:00:00 00:00:00 [facility] 2021-11-02 2021-11-03 Outpatient nullFlavo MNA [id number] Memoria 19:30:00 05:59:59 r Neurology 13 l Frioalbin Cunhaann 2021-11-02 2021-11-03 Outpatient nullFlavo MNA [id number] Memoria 19:30:00 05:59:59 r Neurology 13 l Frio Raul 2021-11-02 2021-11-02 Outpatient Jose [facility] [id number] 13:30:00 23:59:59 Jeffrey 13 [place] 2021-11-02 2021-11-02 Ambulatory nullFlavo MNA [id number] Memoria 19:00:00 19:00:00 Pre-Reg r Neurology 12 l Lana Carter 2021-11-02 2021-11-02 Ambulatory nullFlavo MNA [id number] Memoria 19:00:00 19:00:00 Pre-Reg r Neurology 12 l Lana Carter 2021-11-02 2021-11-02 Outpatient MHIE MHIE [id number] Memoria 13:30:00 13:30:00 13 lavelle Carter 2021-11-02 2021-11-02 Outpatient MHIE MHIE [id number] Memoria 13:00:00 13:00:00 12 lavelle Carter 2021-11-02 2021-11-02 Outpatient Jose [facility] [id number] 13:00:00 13:00:00 Jeffrey Ventura Shafer 2021-10-26 2021-10-26 (TEL) STLMLC STLMLC [id number] Co mmon 00:00:00 00:00:00 [facility] 2021-10-17 2021-10-17 OFFICE STLMLC STLMLC [id number] Co mmon 00:00:00 00:00:00 VISIT Spirit ESTAB PT - CHI LEVEL 4 [facility] 2021-10-03 2021-10-03 CAV Allegra 2.16.840. 2.16.840.1. MESFIN [id number] [facility] 20:00:00 21:30:00 Valentín [id number] [facility] [id number] 2021-08-29 2021-08-29 Outpatient Canales_M DMG [facility] [id number] [facility] 12:42:00 12:42:00 1129 Medica l Group 2021-06-28 2021-06-28 Ambulatory nullFlavo MNA [id number] Memoria 19:00:00 19:00:00 Pre-Reg r Neurology 11 l Lana Carter 2021-06-28 2021-06-28 Ambulatory nullFlavo MNA [id number] Memoria 19:00:00 19:00:00 Pre-Reg r Neurology 11 l Lana Carter 2021-06-28 2021-06-28 Outpatient MHIE MHIE [id number] Memoria 14:00:00 14:00:00 11 lavelle Carter 2021-06-28 2021-06-28 [facility] [id number] 14:00:00 14:00:00 Jeffreyfrancisco Shafer 2021-05-16 2021-05-16 Outpatient STLMLC STLMLC [id number] Common 00:00:00 00:00:00 [facility] 2021-05-10 2021-05-10 Outpatient STLMLC STLMLC [id number] Common 00:00:00 00:00:00 [facility] 2021-04-12 2021-04-12 Outpatient STLMLC STLMLC [id number] Common 00:00:00 00:00:00 [facility] 2021-03-28 2021-03-28 Outpatient Olivia-Mbayo VFP VFP [id number] [facility] 05:32:00 05:32:00 _A_ [id number] Family Practic e 2021-03-07 2021-03-07 Outpatient STLMLC STLMLC [id number] Common 00:00:00 00:00:00 [facility] 2021-02-08 2021-02-08 Outpatient STLMLC STLMLC [id number] Common 00:00:00 00:00:00 [facility] 2021-01-28 2021-01-30 Outside nullFlavo MNA [id number] Memoria 14:05:24 04:59:59 Medical r Neurology 01 l Records Lana Carter 2021-01-28 2021-01-30 Outside nullFlavo MNA [id number] Memoria 14:05:24 04:59:59 Medical r Neurology 01 l Records Lana Carter 2021-01-28 2021-01-29 Outpatient MHMISCHER MHMISCHER [id number] 09:05:24 23:59:59 01 2021-01-18 2021-01-18 Outpatient Renetta [facility] 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 2021-01-14 2021-01-14 Outpatient Jerez, DMG DM [id number] 00:00:00 00:00:00 Caitlyn [id number] Radha [id number] 2021-01-13 2021-01-13 Outpatient Canales_M DMG DMG [id number] [facility] 05:35:00 05:35:00 0415 Medica l Group 2021-01-12 2021-01-12 Outpatient Canales_M DMG DMG [id number] [facility] 04:16:00 04:16:00 0414 Medica l Group 2020-12-24 2020-12-25 Outpatient nullFlavo MNA [id number] Memoria 18:45:00 04:59:59 r Neurology 10 l Lana Carter 2020-12-24 2020-12-25 Outpatient nullFlavo MNA [id number] Memoria 18:45:00 04:59:59 r Neurology 10 l Lana Carter 2020-12-24 2020-12-24 Outpatient YURIDIA Garcia [id number] 13:45:00 23:59:59 Jeffrey Shafer 2020-12-24 2020-12-24 Outpatient FRANCESCO MAYA [id number] Memoria 13:45:00 13:45:00 Lupis Carter 2020-12-09 2020-12-09 Outpatient STLMLC STLMLC [id number] Common 00:00:00 00:00:00 [facility] 2020-12-09 2020-12-09 Outpatient STLMLC STLMLC [id number] Common 00:00:00 00:00:00 [facility] 2020-11-30 2020-11-30 Outpatient STLMLC STLMLC [id number] Common 00:00:00 00:00:00 [facility] 2020-11-23 2020-11-25 Outside nullFlavo MNA [id number] Memoria 17:49:36 05:59:59 Medical r Neurology 00 l Records [facility] 2020-11-23 2020-11-25 Outside nullFlavo MNA [id number] Memoria 17:49:36 05:59:59 Medical r Neurology 00 l Records [facility] 2020-11-23 2020-11-24 Outpatient MHMISCHER MHMISCHER [id number] 11:49:36 23:59:59 2020-10-28 2020-10-28 Outpatient STLMLC STLMLC [id number] Common 00:00:00 00:00:00 [facility] 2020-10-25 2020-10-25 Outpatient STLMLC STLMLC [id number] Common 00:00:00 00:00:00 [facility] 2020-10-11 2020-10-11 Ambulatory nullFlavo MNA [id number] Memoria 21:15:00 21:15:00 Pre-Reg r Neurology 09 l [place] 2020-10-11 2020-10-11 Ambulatory nullFlavo MNA [id number] Memoria 21:15:00 21:15:00 Pre-Reg r Neurology 09 l [facility] 2020-10-11 2020-10-11 Outpatient MHIE MHIE [id number] Memoria 15:15:00 15:15:00 09 l [place] 2020-10-11 2020-10-11 Outpatient PRUDENCIO GarciaMISCHER MHMISCHER [id number] 15:15:00 15:15:00 Jeffrey Shafer 2020-09-29 2020-09-29 Outpatient STLMLC STLMLC [id number] Common 00:00:00 00:00:00 [facility] 2020-09-05 2020-09-06 Observatio nullFlavo [facility] [id number] Memoria 02:36:00 21:43:00 n ekta Carter 40 [facility] 2020-09-05 2020-09-06 Observatio nullFlavo [facility] [id number] Memoria 02:36:00 21:43:00 sherif Carter 40 [facility] 2020-09-04 2020-09-06 Outpatient Nae, [facility] [id number] 20:36:00 15:43:00 Vincent 40 [facility] 2020-09-04 2020-09-04 Outpatient Nae [facility] [id number] 20:36:00 20:36:00 Vincent 40 Chu 2020-08-24 2020-08-24 Ambulatory nullFlavo MNA [id number] Memoria 19:15:00 19:15:00 Pre-Reg r Neurology 08 l Lana [place] 2020-08-24 2020-08-24 Ambulatory nullFlavo MNA [id number] Memoria 19:15:00 19:15:00 Pre-Reg r Neurology 08 l Frio [place] 2020-08-24 2020-08-24 Outpatient MHIE IE [id number] Memoria 13:15:00 13:15:00 08 lavelle [place] 2020-08-24 2020-08-24 Outpatient [facility]IDIA [id number] 13:15:00 13:15:00 Jeffrey 08 [place] 2020-06-28 2020-06-28 Emergency [facility] [id number] [facility] 11:51:00 15:02:00 Sariah Amin [id number] i ty of [place] [id number] [facility] [id number] [address] 2020-06-28 2020-06-28 Emergency [facility] [id number] 11:51:00 15:02:00 Sariah S Matt [id number] [place] [id number] [place] [id number] 2020-05-25 2020-05-26 Outpatient nullFlavo MNA [id number] Mem[facility] 18:45:00 04:59:59 r Neurology 07 l Frio [place] 2020-05-25 2020-05-26 Outpatient nullFlavo MNA [id number] [facility] 18:45:00 04:59:59 r Neurology 07 l Frio [place] 2020-05-25 2020-05-25 Outpatient PRUDENCIO GarciaSCSCHER MISCHER [id number] 13:45:00 23:59:59 Jeffrey 07 [facility] 2020-05-25 2020-05-25 Outpatient MHIE MHIE [id number] [place] 13:45:00 13:45:00 07 l [place] 2020-03-30 2020-03-30 Ambulatory nullFlavo MNA [id number] [facility] 20:15:00 20:15:00 Pre-Reg r Neurology 05 l [place]rio [place] 2020-03-30 2020-03-30 Ambulatory nullFlavo MNA [id number] [place] 20:15:00 20:15:00 Pre-Reg r Neurology 05 l Lana [place] 2020-03-30 2020-03-30 Outpatient MHIE MHIE [id number] [place] 15:15:00 15:15:00 05 l [place] 2020-03-30 2020-03-30 Outpatient GOSIA GarciaSCHER MISCHER [id number] 15:15:00 15:15:00 Jeffrey 05 [facility] 2020-03-24 2020-03-25 Outpatient nullFlavo MNA [id number] [place] 14:00:00 04:59:59 r Neurology 06 l [place]rio [place] 2020-03-24 2020-03-25 Outpatient nullFlavo MNA [id number] [place] 14:00:00 04:59:59 r Neurology 06 l [place] 2020-03-24 2020-03-24 Outpatient GOSIA GarciaSCHER MHMISCHER [id number] 09:00:00 23:59:59 Jeffrey 06 [facility] 2020-03-24 2020-03-24 Outpatient MHIE MHIE [id number] [place] 09:00:00 09:00:00 06 l [place] 2020-02-19 2020-02-19 [facility] [id number] [facility] 14:18:56 16:04:00 Maria Luisa Amin [id number] [facility] [place] [id number] [place] [address] [id number] 2020-02-19 2020-02-19 [facility] [id number] 14:18:56 16:04:00 Maria Luisa Amin [id number] [place] [address] [place] [address] [phone] [facility] 2019-12-11 2019-12-11 Outpatient Olivia-Mbayo VFP VFP [id number] [place] 06:48:00 06:48:00 _A_AH [facility]24 [facility] 2019-12-11 2019-12-11 Outpatient Olivia-Mbayo VFP VFP [id number] [facility] 06:48:00 06:48:00 _A_AH 16427 Family Practic e 2019-12-09 2019-12-10 Emergency [facility] [id number] Univers 21:28:34 00:05:00 Timi [place] [id number] i ty [facility] [place] 4.2.7.2.[address] [place] [phone] 2019-12-09 2019-12-10 Emergency X [facility] ERT [id number] Univers 21:28:34 00:05:00 TIMI dominique [facility] 2019-12-09 2019-12-10 Emergency [facility] [id number] 21:28:34 00:05:00 Timi [place] [id number] [place] [address] [place] [address] [phone] [facility] 2019-11-19 2019-11-19 Outpatient Olivia-Mbayo VFP VFP [id number] [facility] 07:16:00 07:16:00 _A_AH 43452 Family Practic e 2019-09-16 2019-09-16 Ambulatory nullFlavo MNA [id number] [place] 21:00:00 21:00:00 Pre-Reg r Neurology 04 l Frio Ra[place] 2019-09-16 2019-09-16 Ambulatory nullFlavo MNA [id number] [facility] 21:00:00 21:00:00 Pre-Reg r Neurology 04 l Lana Carter 2019-09-16 2019-09-16 Outpatient MHIE MHIE [id number] [place] 15:00:00 15:00:00 04 lavelle Carter 2019-09-16 2019-09-16 Outpatient Jose [facility] [id number] 15:00:00 15:00:00 Jeffrey 04 [place] 2019-07-24 2019-07-25 Outpatient nullFlavo MNA [id number] [place] 19:15:00 04:59:59 r Neurology 03 lavelle Carter 2019-07-24 2019-07-25 Outpatient nullFlavo MNA [id number] [facility] 19:15:00 04:59:59 r Neurology 03 lavelle Cunhaann 2019-07-24 2019-07-24 [facility] [id number] 14:15:00 23:59:59 Jeffrey 03 [place] 2019-07-24 2019-07-24 Outpatient MHIE IE [id number] [place]oria 14:15:00 14:15:00 03 lavelle Carter 2019-05-21 2019-05-22 Outpatient nullFlavo MNA [id number] [facility] 19:30:00 04:59:59 r Neurology 02 lavelle Carter 2019-05-21 2019-05-22 Outpatient nullFlavo MNA [id number] [facility] 19:30:00 04:59:59 r Neurology 02 lavelle Carter 2019-05-21 2019-05-21 [facility] [id number] 14:30:00 23:59:59 Jeffrey Glenn [place] 2019-05-21 2019-05-21 Outpatient MHIE MHIE [id number] [place]oria 14:30:00 14:30:00 02 lavelle Carter 2019-03-21 2019-03-22 Outpatient nullFlavo MNA [id number] [place] 19:30:00 04:59:59 r Neurology 01 lavelle Cunhaann 2019-03-21 2019-03-22 Outpatient nullFlavo MNA [id number] [facility] 19:30:00 04:59:59 r Neurology 01 l Lana Carter 2019-03-21 2019-03-[address] [facility] [id number] 14:30:00 23:59:59 Jeffrey 01 [place] 2019-03-21 2019-03-21 Outpatient MHIE PRUDENCIOIE [id number] [place]oria 14:30:00 14:30:00 01 [place]elle [place] 2019-02-21 2019-02-22 Outpatient nullFlavo MNA [id number] [facility] 20:00:00 04:59:59 r Neurology 00 l Lana Carter 2019-02-21 2019-02-22 Outpatient nullFlavo MNA [id number] [facility] 20:00:00 04:59:59 r Neurology 00 l Lana Carter 2019-02-21 2019-02-[address] [facility] [id number] 15:00:00 23:59:59 Jeffrey 00 [place] Results Test Description Test Time Test Comments Results Result Comments Source CHEM PANEL 2020-09-06 10:24:00 Test Item Value Reference Range Interpretation Comme nts Glucose Lvl (test code = Glucose Lvl) 66 70-99 [facility] [id number] 10:24:00 Test Item Value Reference Range Interpretation Comments BUN (test code = BUN) 19 - [facility] [id number] 10:24:00 Test Item Value Reference Range Interpretation Comments Creatinine Lvl (test code = Creatinine 1.82 0.50-1.40 Lvl) [facility] [id number] 10:24:00 Test Item Value Reference Range Interpretation Comments Sodium Lvl (test code = Sodium Lvl) 139 135-145 [facility] [id number] 10:24:00 Test Item Value Reference Range Interpretation Comments Potassium Lvl (test code = Potassium 4.2 3.5-5.1 Lvl) [facility] [id number] 10:24:00 Test Item Value Reference Range Interpretation Comments Chloride Lvl (test code = Chloride Lvl) 105 95-109 [facility] [id number] 10:24:00 Test Item Value Reference Range Interpretation Comments CO2 (test code = CO2) 28 24-32 [facility] [id number] 10:24:00 Test Item Value Reference Range Interpretation Comments Calcium Lvl (test code = Calcium Lvl) 8.2 8.5-10.5 [facility]2020-12-07 10:24:00 Test Item Value Reference Range Interpretation Comments AGAP (test code = AGAP) 10.2 10.0-20.0 [facility]2020-12-07 10:24:00 Test Item Value Reference Range Interpretation Comments eGFR (test code = eGFR) 26 [facility]LuhdlvmFZSPPNAIRK9851-10-05 10:24:00 Test Item Value Reference Range Interpretation Comments Segs (test code = Segs) 70.6 45.0-75.0 [place] 134920-12-07 10:24:00 Test Item Value Reference Range Interpretation Comments Lymphocytes (test code = Lymphocytes) 13.2 20.0-40.0 [facility] HospitalFmsssgaQTQECUYTIP7300-42-58 10:24:00 Test Item Value Reference Range Interpretation Comments Monocytes (test code = Monocytes) 10.9 2.0-12.0 [facility] HospitalHitymdqGQMUNDBCXU5695-82-56 10:24:00 Test Item Value Reference Range Interpretation Comments Eosinophils (test code = 4.6 See_Comment [A utomated message] The Eosinophils) system which ge nerated this result tra nsmitted reference range : <=4.0. The reference r christiano was not used to int erpret this result as normal/abnormal . [facility] HospitalHllfewiMFQIEOUZBB2402-93-99 10:24:00 Test Item Value Reference Range Interpretation Comments Basophils (test code = 0.7 See_Comment [Aut omated message] The Basophils) system which ge nerated this result tra nsmitted reference range : <=1.0. The reference r christiano was not used to int erpret this result as normal/abnormal . [facility] HospitalSeidiyzLMTIBUOEXB0070-82-18 10:24:00 Test Item Value Reference Range Interpretation Comments Neutrophils # (test code = Neutrophils 5.3 1.5-8.1 #) [facility] HospitalRojyytvYCDPNKNBWR3617-82-74 10:24:00 Test Item Value Reference Range Interpretation Comments Lymphocytes # (test code = Lymphocytes 1.0 1.0-5.5 #) [place] 134920-12-07 10:24:00 Test Item Value Reference Range Interpretation Comments Monocytes # (test code 0.8 See_Comment [Aut omated message] The = Monocytes #) system which generated this result tra nsmitted reference range : <=0.8. The reference r christiano was not used to int erpret this result as normal/abnormal . [facility] HospitalSyvgfusZUPPENOFGG5361-00-77 10:24:00 Test Item Value Reference Range Interpretation Comments Eosinophils # (test code 0.3 See_Comment [A utomated message] The = Eosinophils #) system whic h generated this result tra nsmitted reference range : <=0.5. The reference r christiano was not used to int erpret this result as normal/abnormal . [facility] HospitalHakyyokVMUOBBCJVG1198-81-49 10:24:00 Test Item Value Reference Range Interpretation Comments Basophils # (test code 0.1 See_Comment [Aut omated message] The = Basophils #) system which generated this result tra nsmitted reference range : <=0.2. The reference r christiano was not used to int erpret this result as normal/abnormal . [facility] HospitalQwbzfrxCBSFGPPSAT1361-13-41 10:24:00 Test Item Value Reference Range Interpretation Comments WBC (test code = WBC) 7.5 3.7-10.4 [facility]2020-12-07 10:24:00 Test Item Value Reference Range Interpretation Comments Glucose Lvl (test code = Glucose Lvl) 66 70-99 [facility]2020-12-07 10:24:00 Test Item Value Reference Range Interpretation Comments BUN (test code = BUN) 19 7-22 [facility]2020-12-07 10:24:00 Test Item Value Reference Range Interpretation Comments Creatinine Lvl (test code = Creatinine 1.82 0.50-1.40 Lvl) [facility]2020-12-07 10:24:00 Test Item Value Reference Range Interpretation Comments Sodium Lvl (test code = Sodium Lvl) 139 135-145 [facility]2020-12-07 10:24:00 Test Item Value Reference Range Interpretation Comments Potassium Lvl (test code = Potassium 4.2 3.5-5.1 Lvl) [place] 797760-12-07 10:24:00 Test Item Value Reference Range Interpretation Comments Chloride Lvl (test code = Chloride Lvl) 105 95-109 [facility] [id number] 10:24:00 Test Item Value Reference Range Interpretation Comments CO2 (test code = CO2) 28 24-32 [facility] [id number] 10:24:00 Test Item Value Reference Range Interpretation Comments Calcium Lvl (test code = Calcium Lvl) 8.2 8.5-10.5 [facility] HospitalOrljjgwQMSWJDLNTV4785-44-20 10:24:00 Test Item Value Reference Range Interpretation Comments RBC (test code = RBC) 3.85 4.20-5.40 [facility] [id number] 10:24:00 Test Item Value Reference Range Interpretation Comments AGAP (test code = AGAP) 10.2 10.0-20.0 [facility] [id number] 10:24:00 Test Item Value Reference Range Interpretation Comments eGFR (test code = eGFR) 26 [facility] HospitalPxngjmyASFFWRFRRB7477-39-65 10:24:00 Test Item Value Reference Range Interpretation Comments Segs (test code = Segs) 70.6 45.0-75.0 [facility] HospitalJdpewvkGYHHYAIPAZ6482-21-73 10:24:00 Test Item Value Reference Range Interpretation Comments Lymphocytes (test code = Lymphocytes) 13.2 20.0-40.0 [facility] HospitalNjdekliEBOQGTQWTZ0663-82-24 10:24:00 Test Item Value Reference Range Interpretation Comments Monocytes (test code = Monocytes) 10.9 2.0-12.0 [facility] HospitalHkltipsMSHAOJUGTE0453-61-26 10:24:00 Test Item Value Reference Range Interpretation Comments Eosinophils (test code = 4.6 See_Comment [A utomated message] The Eosinophils) system which ge nerated this result tra nsmitted reference range : <=4.0. The reference r christiano was not used to int erpret this result as normal/abnormal . [facility] HospitalQogngiwIEVFENTGLW9311-08-53 10:24:00 Test Item Value Reference Range Interpretation Comments Basophils (test code = 0.7 See_Comment [Aut omated message] The Basophils) system which ge nerated this result tra nsmitted reference range : <=1.0. The reference r christiano was not used to int erpret this result as normal/abnormal . [facility] HospitalJirvwejZVOFQGYLYS0493-00-73 10:24:00 Test Item Value Reference Range Interpretation Comments Neutrophils # (test code = Neutrophils 5.3 1.5-8.1 #) [facility] HospitalLukfdrbCKKSFYIZIB9317-98-81 10:24:00 Test Item Value Reference Range Interpretation Comments Lymphocytes # (test code = Lymphocytes 1.0 1.0-5.5 #) [facility] HospitalGdoobpuRTGSZBBAFC7929-21-01 10:24:00 Test Item Value Reference Range Interpretation Comments Monocytes # (test code 0.8 See_Comment [Aut omated message] The = Monocytes #) system which generated this result tra nsmitted reference range : <=0.8. The reference r christiano was not used to int erpret this result as normal/abnormal . [facility] HospitalOmmxwnuHJDECYHPKO9705-70-17 10:24:00 Test Item Value Reference Range Interpretation Comments Eosinophils # (test code 0.3 See_Comment [A utomated message] The = Eosinophils #) system whic h generated this result tra nsmitted reference range : <=0.5. The reference r christiano was not used to int erpret this result as normal/abnormal . [facility] HospitalEcswoloHXQWAPBJWJ2437-82-21 10:24:00 Test Item Value Reference Range Interpretation Comments Basophils # (test code 0.1 See_Comment [Aut omated message] The = Basophils #) system which generated this result tra nsmitted reference range : <=0.2. The reference r christiano was not used to int erpret this result as normal/abnormal . [facility] HospitalVfpvgzyCXIHGNSNQY8514-46-30 10:24:00 Test Item Value Reference Range Interpretation Comments WBC (test code = WBC) 7.5 3.7-10.4 [facility] HospitalUdnarkiSOWMVDTZAD5538-44-99 10:24:00 Test Item Value Reference Range Interpretation Comments RBC (test code = RBC) 3.85 4.20-5.40 [place] 134920-12-07 10:24:00 Test Item Value Reference Range Interpretation Comments Hgb (test code = Hgb) 10.6 12.0-16.0 [place] 134920-12-07 10:24:00 Test Item Value Reference Range Interpretation Comments Hct (test code = Hct) 32.1 36.0-48.0 [place] 134920-12-07 10:24:00 Test Item Value Reference Range Interpretation Comments MCV (test code = MCV) 83.5 80.0-98.0 [place] [address]-12-07 10:24:00 Test Item Value Reference Range Interpretation Comments MCH (test code = MCH) 27.7 pg 27.0-31.0 [facility] HospitalRoyxbwiSHYYUUFXKH2341-75-99 10:24:00 Test Item Value Reference Range Interpretation Comments MCHC (test code = MCHC) 33.1 32.0-36.0 [facility] HospitalXgtethqDCWRBIPIBG8120-20-30 10:24:00 Test Item Value Reference Range Interpretation Comments RDW (test code = RDW) 16.8 11.5-14.5 [facility] HospitalVxtduyyUTZHOHMWZG4482-11-63 10:24:00 Test Item Value Reference Range Interpretation Comments Hgb (test code = Hgb) 10.6 12.0-16.0 [facility] HospitalZzetriyDBZBMYTFLC3111-22-40 10:24:00 Test Item Value Reference Range Interpretation Comments Platelet (test code = Platelet) 185 133-450 [facility] HospitalAcfcjviJHCEWWMGBP3401-82-11 10:24:00 Test Item Value Reference Range Interpretation Comments MPV (test code = MPV) 8.4 7.4-10.4 [facility] HospitalCfpnbirCPGLJAWMBQ0746-57-23 10:24:00 Test Item Value Reference Range Interpretation Comments Hct (test code = Hct) 32.1 36.0-48.0 [facility] HospitalTqritfbOZFVIDEJHF3177-64-08 10:24:00 Test Item Value Reference Range Interpretation Comments MCV (test code = MCV) 83.5 80.0-98.0 [facility] HospitalKfqsodgQHLYPFJUWC5468-46-88 10:24:00 Test Item Value Reference Range Interpretation Comments MCH (test code = MCH) 27.7 pg 27.0-31.0 [facility] HospitalCobhfoqHWRDJOAFCI1920-41-19 10:24:00 Test Item Value Reference Range Interpretation Comments MCHC (test code = MCHC) 33.1 32.0-36.0 [facility] HospitalUoooxxkCXJMXGZLBV4748-84-86 10:24:00 Test Item Value Reference Range Interpretation Comments RDW (test code = RDW) 16.8 11.5-14.5 [facility] HospitalDuotgkoTWKYINAYZG1356-84-84 10:24:00 Test Item Value Reference Range Interpretation Comments Platelet (test code = Platelet) 185 133-450 [facility] HospitalSekqjazKXFHHQRCJF5918-91-63 10:24:00 Test Item Value Reference Range Interpretation Comments MPV (test code = MPV) 8.4 7.4-10.4 [facility]2020-12-07 10:24:00 Test Item Value Reference Range Interpretation Comments Glucose Lvl (test code = Glucose Lvl) 66 70-99 [place] 797760-12-07 10:24:00 Test Item Value Reference Range Interpretation Comments BUN (test code = BUN) 19 7-22 [place] 797760-12-07 10:24:00 Test Item Value Reference Range Interpretation Comments Creatinine Lvl (test code = Creatinine 1.82 0.50-1.40 Lvl) [facility]2020-12-07 10:24:00 Test Item Value Reference Range Interpretation Comments Sodium Lvl (test code = Sodium Lvl) 139 135-145 [facility]2020-12-07 10:24:00 Test Item Value Reference Range Interpretation Comments Potassium Lvl (test code = Potassium 4.2 3.5-5.1 Lvl) [facility]2020-12-07 10:24:00 Test Item Value Reference Range Interpretation Comments Chloride Lvl (test code = Chloride Lvl) 105 95-109 [facility]2020-12-07 10:24:00 Test Item Value Reference Range Interpretation Comments CO2 (test code = CO2) 28 24-32 [facility]2020-12-07 10:24:00 Test Item Value Reference Range Interpretation Comments Calcium Lvl (test code = Calcium Lvl) 8.2 8.5-10.5 [facility]2020-12-07 10:24:00 Test Item Value Reference Range Interpretation Comments AGAP (test code = AGAP) 10.2 10.0-20.0 [place] 797760-12-07 10:24:00 Test Item Value Reference Range Interpretation Comments eGFR (test code = eGFR) 26 [facility] HospitalZcgnysvCVJKFETQFH8158-14-38 10:24:00 Test Item Value Reference Range Interpretation Comments Segs (test code = Segs) 70.6 45.0-75.0 [place] 134920-12-07 10:24:00 Test Item Value Reference Range Interpretation Comments Lymphocytes (test code = Lymphocytes) 13.2 20.0-40.0 [place] [address]-12-07 10:24:00 Test Item Value Reference Range Interpretation Comments Monocytes (test code = Monocytes) 10.9 2.0-12.0 [facility] HospitalYgmygfqOFLECPIYVY0899-06-81 10:24:00 Test Item Value Reference Range Interpretation Comments Eosinophils (test code = 4.6 See_Comment [A utomated message] The Eosinophils) system which ge nerated this result tra nsmitted reference range : <=4.0. The reference r christiano was not used to int erpret this result as normal/abnormal . [facility] HospitalIyrtzzaGEDETDBWDU9194-59-64 10:24:00 Test Item Value Reference Range Interpretation Comments Basophils (test code = 0.7 See_Comment [Aut omated message] The Basophils) system which ge nerated this result tra nsmitted reference range : <=1.0. The reference r christiano was not used to int erpret this result as normal/abnormal . [facility] HospitalEkjablgROCXIWFTFL2911-52-84 10:24:00 Test Item Value Reference Range Interpretation Comments Neutrophils # (test code = Neutrophils 5.3 1.5-8.1 #) [facility] HospitalIzqwnknZDDQPVHSEM6610-23-16 10:24:00 Test Item Value Reference Range Interpretation Comments Lymphocytes # (test code = Lymphocytes 1.0 1.0-5.5 #) [facility] HospitalQgikggbLTMYLZHYXS6207-41-13 10:24:00 Test Item Value Reference Range Interpretation Comments Monocytes # (test code 0.8 See_Comment [Aut omated message] The = Monocytes #) system which generated this result tra nsmitted reference range : <=0.8. The reference r christiano was not used to int erpret this result as normal/abnormal . [place] 134920-12-07 10:24:00 Test Item Value Reference Range Interpretation Comments Eosinophils # (test code 0.3 See_Comment [A utomated message] The = Eosinophils #) system whic h generated this result tra nsmitted reference range : <=0.5. The reference r christiano was not used to int erpret this result as normal/abnormal . [facility] HospitalKqwqpqhPOJYPNNQSQ4782-62-91 10:24:00 Test Item Value Reference Range Interpretation Comments Basophils # (test code 0.1 See_Comment [Aut omated message] The = Basophils #) system which generated this result tra nsmitted reference range : <=0.2. The reference r christiano was not used to int erpret this result as normal/abnormal . [facility] HospitalTukkxugSEAYWGWNFS3014-39-20 10:24:00 Test Item Value Reference Range Interpretation Comments WBC (test code = WBC) 7.5 3.7-10.4 [place] 134920-12-07 10:24:00 Test Item Value Reference Range Interpretation Comments RBC (test code = RBC) 3.85 4.20-5.40 [facility] HospitalLenyuicKREMCLHVNL7085-90-26 10:24:00 Test Item Value Reference Range Interpretation Comments Hgb (test code = Hgb) 10.6 12.0-16.0 [place] [address]-12-07 10:24:00 Test Item Value Reference Range Interpretation Comments Hct (test code = Hct) 32.1 36.0-48.0 [place] [address]-12-07 10:24:00 Test Item Value Reference Range Interpretation Comments MCV (test code = MCV) 83.5 80.0-98.0 [place] 134920-12-07 10:24:00 Test Item Value Reference Range Interpretation Comments MCH (test code = MCH) 27.7 pg 27.0-31.0 [facility] HospitalFhftnbpESZFGOCUMY3713-25-93 10:24:00 Test Item Value Reference Range Interpretation Comments MCHC (test code = MCHC) 33.1 32.0-36.0 [facility] HospitalBmycvfxJBLVLLTOGU7805-30-49 10:24:00 Test Item Value Reference Range Interpretation Comments RDW (test code = RDW) 16.8 11.5-14.5 [facility] HospitalNnefefbASFOFXWTRJ2026-35-11 10:24:00 Test Item Value Reference Range Interpretation Comments Platelet (test code = Platelet) 185 133-450 [facility] HospitalTljdiheDSJBZAZTCM3859-98-33 10:24:00 Test Item Value Reference Range Interpretation Comments MPV (test code = MPV) 8.4 7.4-10.4 [facility]2020-12-07 10:24:00 Test Item Value Reference Range Interpretation Comments Glucose Lvl (test code = Glucose Lvl) 66 70-99 [facility]2020-12-07 10:24:00 Test Item Value Reference Range Interpretation Comments BUN (test code = BUN) 19 7-22 [place] 797760-12-07 10:24:00 Test Item Value Reference Range Interpretation Comments Creatinine Lvl (test code = Creatinine 1.82 0.50-1.40 Lvl) [place] 797760-12-07 10:24:00 Test Item Value Reference Range Interpretation Comments Sodium Lvl (test code = Sodium Lvl) 139 135-145 [place] 797760-12-07 10:24:00 Test Item Value Reference Range Interpretation Comments Potassium Lvl (test code = Potassium 4.2 3.5-5.1 Lvl) [facility]2020-12-07 10:24:00 Test Item Value Reference Range Interpretation Comments Chloride Lvl (test code = Chloride Lvl) 105 95-109 [place] 797760-12-07 10:24:00 Test Item Value Reference Range Interpretation Comments CO2 (test code = CO2) 28 24-32 [place] 797760-12-07 10:24:00 Test Item Value Reference Range Interpretation Comments Calcium Lvl (test code = Calcium Lvl) 8.2 8.5-10.5 [facility]2020-12-07 10:24:00 Test Item Value Reference Range Interpretation Comments AGAP (test code = AGAP) 10.2 10.0-20.0 [place] 797760-12-07 10:24:00 Test Item Value Reference Range Interpretation Comments eGFR (test code = eGFR) 26 [place] 134920-12-07 10:24:00 Test Item Value Reference Range Interpretation Comments Segs (test code = Segs) 70.6 45.0-75.0 [place] 134920-12-07 10:24:00 Test Item Value Reference Range Interpretation Comments Lymphocytes (test code = Lymphocytes) 13.2 20.0-40.0 [place] [address]-12-07 10:24:00 Test Item Value Reference Range Interpretation Comments Monocytes (test code = Monocytes) 10.9 2.0-12.0 [place] [address]-12-07 10:24:00 Test Item Value Reference Range Interpretation Comments Eosinophils (test code = 4.6 See_Comment [A utomated message] The Eosinophils) system which ge nerated this result tra nsmitted reference range : <=4.0. The reference r christiano was not used to int erpret this result as normal/abnormal . [facility]SfpelizVLNZKBHTZC3362-01-54 10:24:00 Test Item Value Reference Range Interpretation Comments Basophils (test code = 0.7 See_Comment [Aut omated message] The Basophils) system which ge nerated this result tra nsmitted reference range : <=1.0. The reference r christiano was not used to int erpret this result as normal/abnormal . [facility] HospitalNybzhwoUGWVLOQWJX4228-67-94 10:24:00 Test Item Value Reference Range Interpretation Comments Neutrophils # (test code = Neutrophils 5.3 1.5-8.1 #) [facility] HospitalPyfzmigHMGKVUOEMC5586-03-52 10:24:00 Test Item Value Reference Range Interpretation Comments Lymphocytes # (test code = Lymphocytes 1.0 1.0-5.5 #) [facility] HospitalVcoajtkWYZFYKGNEA5819-24-54 10:24:00 Test Item Value Reference Range Interpretation Comments Monocytes # (test code 0.8 See_Comment [Aut omated message] The = Monocytes #) system which generated this result tra nsmitted reference range : <=0.8. The reference r christiano was not used to int erpret this result as normal/abnormal . [facility] HospitalUqdpazhXZTMTVQKYS0762-17-99 10:24:00 Test Item Value Reference Range Interpretation Comments Eosinophils # (test code 0.3 See_Comment [A utomated message] The = Eosinophils #) system whic h generated this result tra nsmitted reference range : <=0.5. The reference r christiano was not used to int erpret this result as normal/abnormal . [facility] HospitalAwrhicsANROQQAUXY7338-64-26 10:24:00 Test Item Value Reference Range Interpretation Comments Basophils # (test code 0.1 See_Comment [Aut omated message] The = Basophils #) system which generated this result tra nsmitted reference range : <=0.2. The reference r christiano was not used to int erpret this result as normal/abnormal . [facility] HospitalPtkdfvpYYREZYVVRH0293-83-20 10:24:00 Test Item Value Reference Range Interpretation Comments WBC (test code = WBC) 7.5 3.7-10.4 [facility] HospitalLiofzlrEKIOXZKDGV5327-78-53 10:24:00 Test Item Value Reference Range Interpretation Comments RBC (test code = RBC) 3.85 4.20-5.40 [place] 134920-12-07 10:24:00 Test Item Value Reference Range Interpretation Comments Hgb (test code = Hgb) 10.6 12.0-16.0 [place] [address]-12-07 10:24:00 Test Item Value Reference Range Interpretation Comments Hct (test code = Hct) 32.1 36.0-48.0 [place] [address]-12-07 10:24:00 Test Item Value Reference Range Interpretation Comments MCV (test code = MCV) 83.5 80.0-98.0 [place] [address]-12-07 10:24:00 Test Item Value Reference Range Interpretation Comments MCH (test code = MCH) 27.7 pg 27.0-31.0 [place] [address]-12-07 10:24:00 Test Item Value Reference Range Interpretation Comments MCHC (test code = MCHC) 33.1 32.0-36.0 [facility] HospitalAfohhrhABQTMDPQZX0003-79-14 10:24:00 Test Item Value Reference Range Interpretation Comments RDW (test code = RDW) 16.8 11.5-14.5 [place] [address]-12-07 10:24:00 Test Item Value Reference Range Interpretation Comments Platelet (test code = Platelet) 185 133-450 [facility] HospitalMyzpiqyVJYFRQOUHY9958-96-23 10:24:00 Test Item Value Reference Range Interpretation Comments MPV (test code = MPV) 8.4 7.4-10.4 [facility]2020-12-06 09:53:13 Test Item Value Reference Range Interpretation Comments Magnesium Lvl (test code = Magnesium 2.2 1.8-2.4 Lvl) [place] 797760-12-06 09:53:13 Test Item Value Reference Range Interpretation Comments Phosphorus (test code = Phosphorus) 2.9 2.5-4.5 [place] 797760-12-06 09:53:13 Test Item Value Reference Range Interpretation Comments Glucose Lvl (test code = Glucose Lvl) 102 70-99 [place] 797760-12-06 09:53:13 Test Item Value Reference Range Interpretation Comments BUN (test code = BUN) 17 7-22 [place] 797760-12-06 09:53:13 Test Item Value Reference Range Interpretation Comments Creatinine Lvl (test code = Creatinine 1.51 0.50-1.40 Lvl) [address]12-06 09:53:13 Test Item Value Reference Range Interpretation Comments Sodium Lvl (test code = Sodium Lvl) 140 135-145 [address]12-06 09:53:13 Test Item Value Reference Range Interpretation Comments Potassium Lvl (test code = Potassium 3.5 3.5-5.1 Lvl) [address]12-06 09:53:13 Test Item Value Reference Range Interpretation Comments Chloride Lvl (test code = Chloride Lvl) 106 95-[address]12-06 09:53:13 Test Item Value Reference Range Interpretation Comments CO2 (test code = CO2) 29 24-[address]12-06 09:53:13 Test Item Value Reference Range Interpretation Comments Calcium Lvl (test code = Calcium Lvl) 8.3 8.5-10.5 [place] [address]-12-06 09:53:13 Test Item Value Reference Range Interpretation Comments AGAP (test code = AGAP) 8.5 10.0-20.0 [place] [address]-12-06 09:53:13 Test Item Value Reference Range Interpretation Comments eGFR (test code = eGFR) 33 [place] [address]-12-06 09:53:13 Test Item Value Reference Range Interpretation Comments WBC (test code = WBC) 8.7 3.7-10.4 [place] [address]-12-06 09:53:13 Test Item Value Reference Range Interpretation Comments RBC (test code = RBC) 3.96 4.20-5.[address]12-06 09:53:13 Test Item Value Reference Range Interpretation Comments Hgb (test code = Hgb) 10.7 12.0-16.0 [place] [address]-12-06 09:53:13 Test Item Value Reference Range Interpretation Comments Hct (test code = Hct) 32.8 36.0-48.0 [address]12-06 09:53:13 Test Item Value Reference Range Interpretation Comments MCV (test code = MCV) 83.0 80.0-98.0 [place] [address]-12-06 09:53:13 Test Item Value Reference Range Interpretation Comments MCH (test code = MCH) 26.9 pg 27.0-31.0 [place] [address]-12-06 09:53:13 Test Item Value Reference Range Interpretation Comments MCHC (test code = MCHC) 32.4 32.0-36.0 [place] 134920-12-06 09:53:13 Test Item Value Reference Range Interpretation Comments RDW (test code = RDW) 16.5 11.5-14.5 [place] [address]-12-06 09:53:13 Test Item Value Reference Range Interpretation Comments Platelet (test code = Platelet) 157 133-450 [place] [address]-12-06 09:53:13 Test Item Value Reference Range Interpretation Comments MPV (test code = MPV) 7.5 7.4-10.4 [place] [address]-12-06 09:53:13 Test Item Value Reference Range Interpretation Comments Neutrophils # (test code = Neutrophils 7.2 1.5-8.1 #) [place] [address]-12-06 09:53:13 Test Item Value Reference Range Interpretation Comments Lymphocytes # (test code = Lymphocytes 0.9 1.0-5.5 #) [facility] HospitalErrjslvCMUXSMHUBK9136-54-00 09:53:13 Test Item Value Reference Range Interpretation Comments Monocytes # (test code 0.5 See_Comment [Aut omated message] The = Monocytes #) system which generated this result tra nsmitted reference range : <=0.8. The reference r christiano was not used to int erpret this result as normal/abnormal . [place] [address]-12-06 09:53:13 Test Item Value Reference Range Interpretation Comments Basophils # (test code 0.1 See_Comment [Aut omated message] The = Basophils #) system which generated this result tra nsmitted reference range : <=0.2. The reference r christiano was not used to int erpret this result as normal/abnormal . [place] [address]-12-06 09:53:13 Test Item Value Reference Range Interpretation Comments Segs (test code = Segs) 83.0 45.0-75.0 [place] [address]-12-06 09:53:13 Test Item Value Reference Range Interpretation Comments Bands (test code = 0.0 See_Comment [Automat ed message] The Bands) system which ge nerated this result transmit sheba reference range : <=11.0. The reference r christiano was not used to interpr et this result as edy l/abnormal. [facility] HospitalNkxnkqjFMCIKIERAP3969-57-08 09:53:13 Test Item Value Reference Range Interpretation Comments Lymphocytes (test code = Lymphocytes) 10.0 20.0-40.0 [place] 134920-12-06 09:53:13 Test Item Value Reference Range Interpretation Comments Monocytes (test code = Monocytes) 6.0 2.0-12.0 [place] 134920-12-06 09:53:13 Test Item Value Reference Range Interpretation Comments Basophils (test code = 1.0 See_Comment [Aut omated message] The Basophils) system which ge nerated this result tra nsmitted reference range : <=1.0. The reference r christiano was not used to int erpret this result as normal/abnormal . [facility] HospitalTvwsunzTCIFBRMSXR1712-40-87 09:53:13 Test Item Value Reference Range Interpretation Comments Atypical Lymphs (test code = Atypical 0.0 Lymphs) [place] 134920-12-06 09:53:13 Test Item Value Reference Range Interpretation Comments RBC Morph (test code = Normal (09/05/20 3:53 RBC Morph) AM) [place] [address]-12-06 09:53:13 Test Item Value Reference Range Interpretation Comments Plt Morph (test code = Normal (09/05/20 3:53 Plt Morph) AM) [facility]2020-12-06 09:53:13 Test Item Value Reference Range Interpretation Comments Magnesium Lvl (test code = Magnesium 2.2 1.8-2.4 Lvl) [place] 797760-12-06 09:53:13 Test Item Value Reference Range Interpretation Comments Phosphorus (test code = Phosphorus) 2.9 2.5-4.5 [place] 797760-12-06 09:53:13 Test Item Value Reference Range Interpretation Comments Glucose Lvl (test code = Glucose Lvl) 102 70-99 [place] 797760-12-06 09:53:13 Test Item Value Reference Range Interpretation Comments BUN (test code = BUN) 17 7-22 [place] [address]-12-06 09:53:13 Test Item Value Reference Range Interpretation Comments Creatinine Lvl (test code = Creatinine 1.51 0.50-1.40 Lvl) [address]12-06 09:53:13 Test Item Value Reference Range Interpretation Comments Sodium Lvl (test code = Sodium Lvl) 140 135-145 [address]12-06 09:53:13 Test Item Value Reference Range Interpretation Comments Potassium Lvl (test code = Potassium 3.5 3.5-5.1 Lvl) [address]12-06 09:53:13 Test Item Value Reference Range Interpretation Comments Chloride Lvl (test code = Chloride Lvl) 106 95-109 [place] [address]-12-06 09:53:13 Test Item Value Reference Range Interpretation Comments CO2 (test code = CO2) 29 24-32 [address]12-06 09:53:13 Test Item Value Reference Range Interpretation Comments Calcium Lvl (test code = Calcium Lvl) 8.3 8.5-10.5 [place] [address]-12-06 09:53:13 Test Item Value Reference Range Interpretation Comments AGAP (test code = AGAP) 8.5 10.0-20.0 [place] [address]-12-06 09:53:13 Test Item Value Reference Range Interpretation Comments eGFR (test code = eGFR) 33 [place] [address]-12-06 09:53:13 Test Item Value Reference Range Interpretation Comments WBC (test code = WBC) 8.7 3.7-10.[address]12-06 09:53:13 Test Item Value Reference Range Interpretation Comments RBC (test code = RBC) 3.96 4.20-5.40 [place] [address]-12-06 09:53:13 Test Item Value Reference Range Interpretation Comments Hgb (test code = Hgb) 10.7 12.0-16.0 [address]12-06 09:53:13 Test Item Value Reference Range Interpretation Comments Hct (test code = Hct) 32.8 36.0-48.0 [address]12-06 09:53:13 Test Item Value Reference Range Interpretation Comments MCV (test code = MCV) 83.0 80.0-98.0 [place] [address]-12-06 09:53:13 Test Item Value Reference Range Interpretation Comments MCH (test code = MCH) 26.9 pg 27.0-31.0 [place] [address]-12-06 09:53:13 Test Item Value Reference Range Interpretation Comments MCHC (test code = MCHC) 32.4 32.0-36.0 [place] [address]-12-06 09:53:13 Test Item Value Reference Range Interpretation Comments RDW (test code = RDW) 16.5 11.5-14.5 [address]12-06 09:53:13 Test Item Value Reference Range Interpretation Comments Platelet (test code = Platelet) 157 133-450 [address]12-06 09:53:13 Test Item Value Reference Range Interpretation Comments MPV (test code = MPV) 7.5 7.4-10.4 [place] [address]-12-06 09:53:13 Test Item Value Reference Range Interpretation Comments Neutrophils # (test code = Neutrophils 7.2 1.5-8.1 #) [place] [address]-12-06 09:53:13 Test Item Value Reference Range Interpretation Comments Lymphocytes # (test code = Lymphocytes 0.9 1.0-5.5 #) [place] [address]-12-06 09:53:13 Test Item Value Reference Range Interpretation Comments Monocytes # (test code 0.5 See_Comment [Aut omated message] The = Monocytes #) system which generated this result tra nsmitted reference range : <=0.8. The reference r christiano was not used to int erpret this result as normal/abnormal . [address]12-06 09:53:13 Test Item Value Reference Range Interpretation Comments Basophils # (test code 0.1 See_Comment [Aut omated message] The = Basophils #) system which generated this result tra nsmitted reference range : <=0.2. The reference r christiano was not used to int erpret this result as normal/abnormal . [place] [address]-12-06 09:53:13 Test Item Value Reference Range Interpretation Comments Segs (test code = Segs) 83.0 45.0-75.0 [place] 134920-12-06 09:53:13 Test Item Value Reference Range Interpretation Comments Bands (test code = 0.0 See_Comment [Automat ed message] The Bands) system which ge nerated this result transmit sheba reference range : <=11.0. The reference r christiano was not used to interpr et this result as edy l/abnormal. [place] 134920-12-06 09:53:13 Test Item Value Reference Range Interpretation Comments Lymphocytes (test code = Lymphocytes) 10.0 20.0-40.0 [place] [address]-12-06 09:53:13 Test Item Value Reference Range Interpretation Comments Monocytes (test code = Monocytes) 6.0 2.0-12.0 [place] [address]-12-06 09:53:13 Test Item Value Reference Range Interpretation Comments Basophils (test code = 1.0 See_Comment [Aut omated message] The Basophils) system which ge nerated this result tra nsmitted reference range : <=1.0. The reference r christiano was not used to int erpret this result as normal/abnormal . [place] 134920-12-06 09:53:13 Test Item Value Reference Range Interpretation Comments Atypical Lymphs (test code = Atypical 0.0 Lymphs) [place] [address]-12-06 09:53:13 Test Item Value Reference Range Interpretation Comments RBC Morph (test code = Normal (09/05/20 3:53 RBC Morph) AM) [place] [address]-12-06 09:53:13 Test Item Value Reference Range Interpretation Comments Plt Morph (test code = Normal (09/05/20 3:53 Plt Morph) AM) [place] 797760-12-06 09:53:13 Test Item Value Reference Range Interpretation Comments Magnesium Lvl (test code = Magnesium 2.2 1.8-2.4 Lvl) [place] 797760-12-06 09:53:13 Test Item Value Reference Range Interpretation Comments Phosphorus (test code = Phosphorus) 2.9 2.5-4.5 [place] 797760-12-06 09:53:13 Test Item Value Reference Range Interpretation Comments Glucose Lvl (test code = Glucose Lvl) 102 70-99 [place] [address]-12-06 09:53:13 Test Item Value Reference Range Interpretation Comments BUN (test code = BUN) 17 7-22 [place] [address]-12-06 09:53:13 Test Item Value Reference Range Interpretation Comments Creatinine Lvl (test code = Creatinine 1.51 0.50-1.40 Lvl) [place] [address]-12-06 09:53:13 Test Item Value Reference Range Interpretation Comments Sodium Lvl (test code = Sodium Lvl) 140 135-145 [address]12-06 09:53:13 Test Item Value Reference Range Interpretation Comments Potassium Lvl (test code = Potassium 3.5 3.5-5.1 Lvl) [place] 797760-12-06 09:53:13 Test Item Value Reference Range Interpretation Comments Chloride Lvl (test code = Chloride Lvl) 106 95-109 [place] 797760-12-06 09:53:13 Test Item Value Reference Range Interpretation Comments CO2 (test code = CO2) 29 24-32 [place] [address]-12-06 09:53:13 Test Item Value Reference Range Interpretation Comments Calcium Lvl (test code = Calcium Lvl) 8.3 8.5-10.5 [place] [address]-12-06 09:53:13 Test Item Value Reference Range Interpretation Comments AGAP (test code = AGAP) 8.5 10.0-20.0 [place] [address]-12-06 09:53:13 Test Item Value Reference Range Interpretation Comments eGFR (test code = eGFR) 33 [place] [address]-12-06 09:53:13 Test Item Value Reference Range Interpretation Comments WBC (test code = WBC) 8.7 3.7-10.4 [place] [address]-12-06 09:53:13 Test Item Value Reference Range Interpretation Comments RBC (test code = RBC) 3.96 4.20-5.40 [place] [address]-12-06 09:53:13 Test Item Value Reference Range Interpretation Comments Hgb (test code = Hgb) 10.7 12.0-16.0 [place] [address]-12-06 09:53:13 Test Item Value Reference Range Interpretation Comments Hct (test code = Hct) 32.8 36.0-48.0 [place] [address]-12-06 09:53:13 Test Item Value Reference Range Interpretation Comments MCV (test code = MCV) 83.0 80.0-98.0 [place] [address]-12-06 09:53:13 Test Item Value Reference Range Interpretation Comments MCH (test code = MCH) 26.9 pg 27.0-31.0 [place] [address]-12-06 09:53:13 Test Item Value Reference Range Interpretation Comments MCHC (test code = MCHC) 32.4 32.0-36.0 [place] [address]-12-06 09:53:13 Test Item Value Reference Range Interpretation Comments RDW (test code = RDW) 16.5 11.5-14.5 [place] [address]-12-06 09:53:13 Test Item Value Reference Range Interpretation Comments Platelet (test code = Platelet) 157 133-450 [place] [address]-12-06 09:53:13 Test Item Value Reference Range Interpretation Comments MPV (test code = MPV) 7.5 7.4-10.4 [place] [address]-12-06 09:53:13 Test Item Value Reference Range Interpretation Comments Neutrophils # (test code = Neutrophils 7.2 1.5-8.1 #) [place] [address]-12-06 09:53:13 Test Item Value Reference Range Interpretation Comments Lymphocytes # (test code = Lymphocytes 0.9 1.0-5.5 #) [place] [address]-12-06 09:53:13 Test Item Value Reference Range Interpretation Comments Monocytes # (test code 0.5 See_Comment [Aut omated message] The = Monocytes #) system which generated this result tra nsmitted reference range : <=0.8. The reference r christiano was not used to int erpret this result as normal/abnormal . [place] [address]-12-06 09:53:13 Test Item Value Reference Range Interpretation Comments Basophils # (test code 0.1 See_Comment [Aut omated message] The = Basophils #) system which generated this result tra nsmitted reference range : <=0.2. The reference r christiano was not used to int erpret this result as normal/abnormal . [facility] HospitalMupusmzTRQVSRCMML7508-03-91 09:53:13 Test Item Value Reference Range Interpretation Comments Segs (test code = Segs) 83.0 45.0-75.0 [facility] HospitalIljrkqiPHTRAKLZOQ9115-17-58 09:53:13 Test Item Value Reference Range Interpretation Comments Bands (test code = 0.0 See_Comment [Automat ed message] The Bands) system which ge nerated this result transmit sheba reference range : <=11.0. The reference r christiano was not used to interpr et this result as edy l/abnormal. [facility] HospitalRgwyfjfXIYHSLAFVR7563-42-80 09:53:13 Test Item Value Reference Range Interpretation Comments Lymphocytes (test code = Lymphocytes) 10.0 20.0-40.0 [facility] HospitalApedwrfWFNYAVWPLJ2722-84-03 09:53:13 Test Item Value Reference Range Interpretation Comments Monocytes (test code = Monocytes) 6.0 2.0-12.0 [facility] HospitalNpxssadAUOTASOZKH3366-77-51 09:53:13 Test Item Value Reference Range Interpretation Comments Basophils (test code = 1.0 See_Comment [Aut omated message] The Basophils) system which ge nerated this result tra nsmitted reference range : <=1.0. The reference r christiano was not used to int erpret this result as normal/abnormal . [facility] HospitalCbowfzbTVATLPEIYX1415-47-80 09:53:13 Test Item Value Reference Range Interpretation Comments Atypical Lymphs (test code = Atypical 0.0 Lymphs) [place] 134920-12-06 09:53:13 Test Item Value Reference Range Interpretation Comments RBC Morph (test code = Normal (09/05/20 3:53 RBC Morph) AM) [place] [address]-12-06 09:53:13 Test Item Value Reference Range Interpretation Comments Plt Morph (test code = Normal (09/05/20 3:53 Plt Morph) AM) [facility]2020-12-06 09:53:13 Test Item Value Reference Range Interpretation Comments Magnesium Lvl (test code = Magnesium 2.2 1.8-2.4 Lvl) [facility]2020-12-06 09:53:13 Test Item Value Reference Range Interpretation Comments Phosphorus (test code = Phosphorus) 2.9 2.5-4.[address]12-06 09:53:13 Test Item Value Reference Range Interpretation Comments Glucose Lvl (test code = Glucose Lvl) 102 70-99 [address]12-06 09:53:13 Test Item Value Reference Range Interpretation Comments BUN (test code = BUN) 17 7-22 [address]12-06 09:53:13 Test Item Value Reference Range Interpretation Comments Creatinine Lvl (test code = Creatinine 1.51 0.50-1.40 Lvl) [address]12-06 09:53:13 Test Item Value Reference Range Interpretation Comments Sodium Lvl (test code = Sodium Lvl) 140 135-145 [address]12-06 09:53:13 Test Item Value Reference Range Interpretation Comments Potassium Lvl (test code = Potassium 3.5 3.5-5.1 Lvl) [address]12-06 09:53:13 Test Item Value Reference Range Interpretation Comments Chloride Lvl (test code = Chloride Lvl) 106 95-109 [place] [address]-12-06 09:53:13 Test Item Value Reference Range Interpretation Comments CO2 (test code = CO2) 29 24-32 [place] [address]-12-06 09:53:13 Test Item Value Reference Range Interpretation Comments Calcium Lvl (test code = Calcium Lvl) 8.3 8.5-10.5 [place] [address]-12-06 09:53:13 Test Item Value Reference Range Interpretation Comments AGAP (test code = AGAP) 8.5 10.0-20.0 [place] [address]-12-06 09:53:13 Test Item Value Reference Range Interpretation Comments eGFR (test code = eGFR) [address]12-06 09:53:13 Test Item Value Reference Range Interpretation Comments WBC (test code = WBC) 8.7 3.7-10.[address]12-06 09:53:13 Test Item Value Reference Range Interpretation Comments RBC (test code = RBC) 3.96 4.20-5.[address]12-06 09:53:13 Test Item Value Reference Range Interpretation Comments Hgb (test code = Hgb) 10.7 12.0-16.0 [place] [address]-12-06 09:53:13 Test Item Value Reference Range Interpretation Comments Hct (test code = Hct) 32.8 36.0-48.0 [place] 134920-12-06 09:53:13 Test Item Value Reference Range Interpretation Comments MCV (test code = MCV) 83.0 80.0-98.0 [place] [address]-12-06 09:53:13 Test Item Value Reference Range Interpretation Comments MCH (test code = MCH) 26.9 pg 27.0-31.0 [place] [address]-12-06 09:53:13 Test Item Value Reference Range Interpretation Comments MCHC (test code = MCHC) 32.4 32.0-36.0 [place] [address]-12-06 09:53:13 Test Item Value Reference Range Interpretation Comments RDW (test code = RDW) 16.5 11.5-14.5 [place] [address]-12-06 09:53:13 Test Item Value Reference Range Interpretation Comments Platelet (test code = Platelet) 157 133-450 [place] [address]-12-06 09:53:13 Test Item Value Reference Range Interpretation Comments MPV (test code = MPV) 7.5 7.4-10.4 [place] [address]-12-06 09:53:13 Test Item Value Reference Range Interpretation Comments Neutrophils # (test code = Neutrophils 7.2 1.5-8.1 #) [facility] HospitalRucwgalOLXGLPGFDC2133-49-03 09:53:13 Test Item Value Reference Range Interpretation Comments Lymphocytes # (test code = Lymphocytes 0.9 1.0-5.5 #) [place] [address]-12-06 09:53:13 Test Item Value Reference Range Interpretation Comments Monocytes # (test code 0.5 See_Comment [Aut omated message] The = Monocytes #) system which generated this result tra nsmitted reference range : <=0.8. The reference r christiano was not used to int erpret this result as normal/abnormal . [place] 134920-12-06 09:53:13 Test Item Value Reference Range Interpretation Comments Basophils # (test code 0.1 See_Comment [Aut omated message] The = Basophils #) system which generated this result tra nsmitted reference range : <=0.2. The reference r christiano was not used to int erpret this result as normal/abnormal . [facility] HospitalIauaruaRGJFATSOSA6978-75-83 09:53:13 Test Item Value Reference Range Interpretation Comments Segs (test code = Segs) 83.0 45.0-75.0 [facility] HospitalHifwqjkBQNHMIZSRP6577-94-10 09:53:13 Test Item Value Reference Range Interpretation Comments Bands (test code = 0.0 See_Comment [Automat ed message] The Bands) system which ge nerated this result transmit [place] reference range : <=11.0. The reference r christiano was not used to interpr et this result as edy l/abnormal. [facility]WbapvwcFHUYCEMUZI8889-31-66 09:53:13 Test Item Value Reference Range Interpretation Comments Lymphocytes (test code = Lymphocytes) 10.0 20.0-40.0 [facility] HospitalKerfldhHZXAFTOQAX4946-77-73 09:53:13 Test Item Value Reference Range Interpretation Comments Monocytes (test code = Monocytes) 6.0 2.0-12.0 [facility] HospitalNglxojlYFXGMYNAUN3298-75-97 09:53:13 Test Item Value Reference Range Interpretation Comments Basophils (test code = 1.0 See_Comment [Aut omated message] The Basophils) system which ge nerated this result tra nsmitted reference range : <=1.0. The reference r christiano was not used to int erpret this result as normal/abnormal . [facility] HospitalXsqkwrjXFTLOURWBA6880-79-63 09:53:13 Test Item Value Reference Range Interpretation Comments Atypical Lymphs (test code = Atypical 0.0 Lymphs) [facility] HospitalJiswhjeIQCSDTECEF4916-67-50 09:53:13 Test Item Value Reference Range Interpretation Comments RBC Morph (test code = Normal (09/05/20 3:53 RBC Morph) AM) [facility] HospitalUxxcjtyUIUFVBDJYC9610-57-97 09:53:13 Test Item Value Reference Range Interpretation Comments Plt Morph (test code = Normal (09/05/20 3:53 Plt Morph) AM) [facility]lejUQMQPZTDLH6581-28-49 09:53:00 Test Item Value Reference Range Interpretation Comments Coronavirus (COVID-19) Not Detected (09/05/20 JONATHAN (test code = 3:53 AM) Coronavirus (COVID-19) JONATHAN) [facility]lb[facility]axZOWKLNEFLO0771-78-97 09:53:00 Test Item Value Reference Range Interpretation Comments Coronavirus (COVID-19) Not Detected (09/05/20 JONATHAN (test code = 3:53 AM) Coronavirus (COVID-19) JONATHAN) [place] 283650-12-06 09:53:00 Test Item Value Reference Range Interpretation Comments Coronavirus (COVID-19) Not Detected (09/05/20 JONATHAN (test code = 3:53 AM) Coronavirus (COVID-19) JONATHAN) [facility] HospitalBjdlugkXKFIFQSISC2372-73-28 09:53:00 Test Item Value Reference Range Interpretation Comments Coronavirus (COVID-19) Not Detected (09/05/20 JONATHAN (test code = 3:53 AM) Coronavirus (COVID-19) JONATHAN) [facility]2020-12-06 04:34:00 Test Item Value Reference Range Interpretation Comments Sodium Lvl (test code = Sodium Lvl) 142 135-145 [facility]2020-12-06 04:34:00 Test Item Value Reference Range Interpretation Comments Potassium Lvl (test code = Potassium 4.0 3.5-5.1 Lvl) [facility]2020-12-06 04:34:00 Test Item Value Reference Range Interpretation Comments Chloride Lvl (test code = Chloride Lvl) 108 95-109 [facility]2020-12-06 04:34:00 Test Item Value Reference Range Interpretation Comments CO2 (test code = CO2) 30 24-32 [facility]2020-12-06 04:34:00 Test Item Value Reference Range Interpretation Comments Calcium Lvl (test code = Calcium Lvl) 7.8 8.5-10.5 [facility]2020-12-06 04:34:00 Test Item Value Reference Range Interpretation Comments AGAP (test code = AGAP) 8.0 10.0-20.0 [facility]2020-12-06 04:34:00 Test Item Value Reference Range Interpretation Comments eGFR (test code = eGFR) 33 [facility] HospitalNsasnxgLOWNQTGKPD5387-95-53 04:34:00 Test Item Value Reference Range Interpretation Comments WBC X 10x3 (test code = WBC X 10x3) 9.7 3.7-10.4 [facility] HospitalRxcszzlULOUVMMBNW9811-60-50 04:34:00 Test Item Value Reference Range Interpretation Comments RBC X 10x6 (test code = RBC X 10x6) 3.96 4.20-5.40 [facility] HospitalFfkszvqGTZSYRDPJS8086-84-13 04:34:00 Test Item Value Reference Range Interpretation Comments Hgb (test code = Hgb) 10.6 12.0-16.0 [facility] HospitalAlybhirSJQQSLHPBK6773-00-78 04:34:00 Test Item Value Reference Range Interpretation Comments Hct (test code = Hct) 32.6 36.0-48.0 [facility] HospitalXbvehkoOCMYCSPOHM3416-60-32 04:34:00 Test Item Value Reference Range Interpretation Comments MCV (test code = MCV) 82.3 80.0-98.0 [facility] HospitalFdfnyanHNHTLFHTWQ8097-63-51 04:34:00 Test Item Value Reference Range Interpretation Comments MCH (test code = MCH) 26.6 pg 27.0-31.0 [facility] HospitalPnyttsdCPCBVCCNXU8531-04-30 04:34:00 Test Item Value Reference Range Interpretation Comments MCHC (test code = MCHC) 32.4 32.0-36.0 [facility] HospitalVfihgaqMEFSMZCWVW0082-84-03 04:34:00 Test Item Value Reference Range Interpretation Comments RDW (test code = RDW) 16.8 11.5-14.5 [facility] HospitalKbpjsoiPZTORLJKDB4440-87-44 04:34:00 Test Item Value Reference Range Interpretation Comments Platelet (test code = Platelet) 178 133-450 [facility] HospitalVtrkemaEOQCYRNAHS1798-89-83 04:34:00 Test Item Value Reference Range Interpretation Comments MPV (test code = MPV) 8.0 7.4-10.4 [place] 134920-12-06 04:34:00 Test Item Value Reference Range Interpretation Comments PT (test code = PT) 14.7 s 12.0-14.7 [facility] HospitalAsroukjJVLDFSIHBD9509-11-72 04:34:00 Test Item Value Reference Range Interpretation Comments INR (test code = INR) 1.14 1 0.85-1.17 [facility] HospitalGdpkttuSQSWVSNZLK1515-77-36 04:34:00 Test Item Value Reference Range Interpretation Comments PTT (test code = PTT) 31.2 s 22.9-35.8 [place] [address]-12-06 04:34:00 Test Item Value Reference Range Interpretation Comments Segs (test code = Segs) 73.9 45.0-75.0 [place] [address]-12-06 04:34:00 Test Item Value Reference Range Interpretation Comments Lymphocytes (test code = Lymphocytes) 11.0 20.0-40.0 [place] [address]-12-06 04:34:00 Test Item Value Reference Range Interpretation Comments Monocytes (test code = Monocytes) 13.6 2.0-12.0 [place] [address]-12-06 04:34:00 Test Item Value Reference Range Interpretation Comments Eosinophils (test code = 0.7 See_Comment [A utomated message] The Eosinophils) system which ge nerated this result tra nsmitted reference range : <=4.0. The reference r christiano was not used to int erpret this result as normal/abnormal . [place] [address]-12-06 04:34:00 Test Item Value Reference Range Interpretation Comments Basophils (test code = 0.8 See_Comment [Aut omated message] The Basophils) system which ge nerated this result tra nsmitted reference range : <=1.0. The reference r christiano was not used to int erpret this result as normal/abnormal . [place] [address]-12-06 04:34:00 Test Item Value Reference Range Interpretation Comments Neutrophils # (test code = Neutrophils 7.2 1.5-8.1 #) [place] [address]-12-06 04:34:00 Test Item Value Reference Range Interpretation Comments Lymphocytes # (test code = Lymphocytes 1.1 1.0-5.5 #) [place] [address]-12-06 04:34:00 Test Item Value Reference Range Interpretation Comments Monocytes # (test code 1.3 See_Comment [Aut omated message] The = Monocytes #) system which generated this result tra nsmitted reference range : <=0.8. The reference r christiano was not used to int erpret this result as normal/abnormal . [place] [address]-12-06 04:34:00 Test Item Value Reference Range Interpretation Comments Eosinophils # (test code 0.1 See_Comment [A utomated message] The = Eosinophils #) system whic h generated this result tra nsmitted reference range : <=0.5. The reference r christiano was not used to int erpret this result as normal/abnormal . [facility] IrvingUkjgptbOTPPDOUABM3683-97-27 04:34:00 Test Item Value Reference Range Interpretation Comments Basophils # (test code 0.1 See_Comment [Aut omated message] The = Basophils #) system which generated this result tra nsmitted reference range : <=0.2. The reference r christiano was not used to int erpret this result as normal/abnormal . [facility] IrvingCARD[facility]AC ZBJQLIQ2099-12-07 04:34:00 Test Item Value Reference Range Interpretation Comments Troponin-I (test code no gt See_Comment [Auto mated message] The = Troponin-I) system which g enerated this result transmit [place] reference range : <=0.40. The reference r christiano was not used to interpr et this result as edy l/abnormal. [facility] [id number] 04:34:00 Test Item Value Reference Range Interpretation Comments Glucose Lvl (test code = Glucose Lvl) 125 70-99 [facility] [id number] 04:34:00 Test Item Value Reference Range Interpretation Comments BUN (test code = BUN) 17 7-22 [facility] [id number] 04:34:00 Test Item Value Reference Range Interpretation Comments Creatinine Lvl (test code = Creatinine 1.51 0.50-1.40 Lvl) [facility] [id number] 04:34:00 Test Item Value Reference Range Interpretation Comments Sodium Lvl (test code = Sodium Lvl) 142 135-145 [facility] [id number] 04:34:00 Test Item Value Reference Range Interpretation Comments Potassium Lvl (test code = Potassium 4.0 3.5-5.1 Lvl) [facility] [id number] 04:34:00 Test Item Value Reference Range Interpretation Comments Chloride Lvl (test code = Chloride Lvl) 108 95-109 [facility] [id number] 04:34:00 Test Item Value Reference Range Interpretation Comments CO2 (test code = CO2) 30 24-32 [facility] [id number] 04:34:00 Test Item Value Reference Range Interpretation Comments Calcium Lvl (test code = Calcium Lvl) 7.8 8.5-10.5 [facility] [id number] 04:34:00 Test Item Value Reference Range Interpretation Comments AGAP (test code = AGAP) 8.0 10.0-20.0 [facility] [id number] 04:34:00 Test Item Value Reference Range Interpretation Comments eGFR (test code = eGFR) 33 [facility] HospitalAdcoymsSFEYGAATEQ4653-20-70 04:34:00 Test Item Value Reference Range Interpretation Comments WBC X 10x3 (test code = WBC X 10x3) 9.7 3.7-10.4 [facility] HospitalAjhyimfNSDZGWRQGF6008-42-59 04:34:00 Test Item Value Reference Range Interpretation Comments RBC X 10x6 (test code = RBC X 10x6) 3.96 4.20-5.40 [facility] HospitalVgyjffwHKCDQIXWAH9301-09-43 04:34:00 Test Item Value Reference Range Interpretation Comments Hgb (test code = Hgb) 10.6 12.0-16.0 [facility] HospitalBitwejpRKEBQJFTLB2143-30-52 04:34:00 Test Item Value Reference Range Interpretation Comments Hct (test code = Hct) 32.6 36.0-48.0 [facility] HospitalYowpbqaFYZMEXNPPB9568-87-89 04:34:00 Test Item Value Reference Range Interpretation Comments MCV (test code = MCV) 82.3 80.0-98.0 [facility] HospitalGsziiytBXYHFYEYEQ4711-67-77 04:34:00 Test Item Value Reference Range Interpretation Comments MCH (test code = MCH) 26.6 pg 27.0-31.0 [facility] HospitalTjlpxxiHOSDTRFBCD3315-73-26 04:34:00 Test Item Value Reference Range Interpretation Comments MCHC (test code = MCHC) 32.4 32.0-36.0 [facility] HospitalItchkgqDTNRMOYNMD0715-87-53 04:34:00 Test Item Value Reference Range Interpretation Comments RDW (test code = RDW) 16.8 11.5-14.5 [facility] HospitalApvzklcWVOXDEDRRZ0335-62-14 04:34:00 Test Item Value Reference Range Interpretation Comments Platelet (test code = Platelet) 178 133-450 [facility] HospitalXhcvcizAHHXDMQVZN9691-65-22 04:34:00 Test Item Value Reference Range Interpretation Comments MPV (test code = MPV) 8.0 7.4-10.4 [place] 134920-12-06 04:34:00 Test Item Value Reference Range Interpretation Comments PT (test code = PT) 14.7 s 12.0-14.7 [place] 134920-12-06 04:34:00 Test Item Value Reference Range Interpretation Comments INR (test code = INR) 1.14 1 0.85-1.17 [place] [address]-12-06 04:34:00 Test Item Value Reference Range Interpretation Comments PTT (test code = PTT) 31.2 s 22.9-35.8 [place] [address]-12-06 04:34:00 Test Item Value Reference Range Interpretation Comments Segs (test code = Segs) 73.9 45.0-75.0 [place] [address]-12-06 04:34:00 Test Item Value Reference Range Interpretation Comments Lymphocytes (test code = Lymphocytes) 11.0 20.0-40.0 [place] 134920-12-06 04:34:00 Test Item Value Reference Range Interpretation Comments Monocytes (test code = Monocytes) 13.6 2.0-12.0 [place] [address]-12-06 04:34:00 Test Item Value Reference Range Interpretation Comments Eosinophils (test code = 0.7 See_Comment [A utomated message] The Eosinophils) system which ge nerated this result tra nsmitted reference range : <=4.0. The reference r christiano was not used to int erpret this result as normal/abnormal . [facility] HospitalGcrhsfzXBEUPZMGLB8989-95-55 04:34:00 Test Item Value Reference Range Interpretation Comments Basophils (test code = 0.8 See_Comment [Aut omated message] The Basophils) system which ge nerated this result tra nsmitted reference range : <=1.0. The reference r christiano was not used to int erpret this result as normal/abnormal . [place] 134920-12-06 04:34:00 Test Item Value Reference Range Interpretation Comments Neutrophils # (test code = Neutrophils 7.2 1.5-8.1 #) [place] 134920-12-06 04:34:00 Test Item Value Reference Range Interpretation Comments Lymphocytes # (test code = Lymphocytes 1.1 1.0-5.5 #) [place] 134920-12-06 04:34:00 Test Item Value Reference Range Interpretation Comments Monocytes # (test code 1.3 See_Comment [Aut omated message] The = Monocytes #) system which generated this result tra nsmitted reference range : <=0.8. The reference r christiano was not used to int erpret this result as normal/abnormal . [facility] IrvingDylaezoLCUFYHESDK1059-42-29 04:34:00 Test Item Value Reference Range Interpretation Comments Eosinophils # (test code 0.1 See_Comment [A utomated message] The = Eosinophils #) system whic h generated this result tra nsmitted reference range : <=0.5. The reference r christiano was not used to int erpret this result as normal/abnormal . [facility]FecfibuSMYZCOAOHQ1500-37-62 04:34:00 Test Item Value Reference Range Interpretation Comments Basophils # (test code 0.1 See_Comment [Aut omated message] The = Basophils #) system which generated this result tra nsmitted reference range : <=0.2. The reference r christiano was not used to int erpret this result as normal/abnormal . [facility] MRHOQTW5708-76-50 04:34:00 Test Item Value Reference Range Interpretation Comments Troponin-I (test code no gt See_Comment [Auto mated message] The = Troponin-I) system which g enerated this result transmit [place] reference range : <=0.40. The reference r christiano was not used to interpr et this result as edy l/abnormal. [facility] [id number] 04:34:00 Test Item Value Reference Range Interpretation Comments Glucose Lvl (test code = Glucose Lvl) 125 70-99 [facility] [id number] 04:34:00 Test Item Value Reference Range Interpretation Comments BUN (test code = BUN) 17 7-22 [facility] [id number] 04:34:00 Test Item Value Reference Range Interpretation Comments Creatinine Lvl (test code = Creatinine 1.51 0.50-1.40 Lvl) [facility] [id number] 04:34:00 Test Item Value Reference Range Interpretation Comments Sodium Lvl (test code = Sodium Lvl) 142 135-145 [facility] [id number] 04:34:00 Test Item Value Reference Range Interpretation Comments Potassium Lvl (test code = Potassium 4.0 3.5-5.1 Lvl) [place] 797760-12-06 04:34:00 Test Item Value Reference Range Interpretation Comments Chloride Lvl (test code = Chloride Lvl) 108 95-109 [place] [address]-12-06 04:34:00 Test Item Value Reference Range Interpretation Comments CO2 (test code = CO2) 30 24-32 [place] 797760-12-06 04:34:00 Test Item Value Reference Range Interpretation Comments Calcium Lvl (test code = Calcium Lvl) 7.8 8.5-10.5 [place] [address]-12-06 04:34:00 Test Item Value Reference Range Interpretation Comments AGAP (test code = AGAP) 8.0 10.0-20.0 [place] 797760-12-06 04:34:00 Test Item Value Reference Range Interpretation Comments eGFR (test code = eGFR) 33 [place] 134920-12-06 04:34:00 Test Item Value Reference Range Interpretation Comments WBC X 10x3 (test code = WBC X 10x3) 9.7 3.7-10.4 [place] [address]-12-06 04:34:00 Test Item Value Reference Range Interpretation Comments RBC X 10x6 (test code = RBC X 10x6) 3.96 4.20-5.40 [place] 134920-12-06 04:34:00 Test Item Value Reference Range Interpretation Comments Hgb (test code = Hgb) 10.6 12.0-16.0 [place] [address]-12-06 04:34:00 Test Item Value Reference Range Interpretation Comments Hct (test code = Hct) 32.6 36.0-48.0 [place] [address]-12-06 04:34:00 Test Item Value Reference Range Interpretation Comments MCV (test code = MCV) 82.3 80.0-98.0 [place] [address]-12-06 04:34:00 Test Item Value Reference Range Interpretation Comments MCH (test code = MCH) 26.6 pg 27.0-31.0 [place] [address]-12-06 04:34:00 Test Item Value Reference Range Interpretation Comments MCHC (test code = MCHC) 32.4 32.0-36.0 [place] 134920-12-06 04:34:00 Test Item Value Reference Range Interpretation Comments RDW (test code = RDW) 16.8 11.5-14.5 [place] [address]-12-06 04:34:00 Test Item Value Reference Range Interpretation Comments Platelet (test code = Platelet) 178 133-450 [place] 134920-12-06 04:34:00 Test Item Value Reference Range Interpretation Comments MPV (test code = MPV) 8.0 7.4-10.4 [place] [address]-12-06 04:34:00 Test Item Value Reference Range Interpretation Comments PT (test code = PT) 14.7 s 12.0-14.7 [place] [address]-12-06 04:34:00 Test Item Value Reference Range Interpretation Comments INR (test code = INR) 1.14 1 0.85-1.17 [place] [address]-12-06 04:34:00 Test Item Value Reference Range Interpretation Comments PTT (test code = PTT) 31.2 s 22.9-35.8 [place] [address]-12-06 04:34:00 Test Item Value Reference Range Interpretation Comments Segs (test code = Segs) 73.9 45.0-75.0 [place] [address]-12-06 04:34:00 Test Item Value Reference Range Interpretation Comments Lymphocytes (test code = Lymphocytes) 11.0 20.0-40.0 [place] [address]-12-06 04:34:00 Test Item Value Reference Range Interpretation Comments Monocytes (test code = Monocytes) 13.6 2.0-12.0 [place] [address]-12-06 04:34:00 Test Item Value Reference Range Interpretation Comments Eosinophils (test code = 0.7 See_Comment [A utomated message] The Eosinophils) system which ge nerated this result tra nsmitted reference range : <=4.0. The reference r christiano was not used to int erpret this result as normal/abnormal . [place] [address]-12-06 04:34:00 Test Item Value Reference Range Interpretation Comments Basophils (test code = 0.8 See_Comment [Aut omated message] The Basophils) system which ge nerated this result tra nsmitted reference range : <=1.0. The reference r christiano was not used to int erpret this result as normal/abnormal . [facility]WrfskqnMCQVFDKKOZ3485-92-05 04:34:00 Test Item Value Reference Range Interpretation Comments Neutrophils # (test code = Neutrophils 7.2 1.5-8.1 #) [facility] HospitalJqkggbqDJROHLZPIT3929-65-10 04:34:00 Test Item Value Reference Range Interpretation Comments Lymphocytes # (test code = Lymphocytes 1.1 1.0-5.5 #) [facility] HospitalFqqzlidERCZEVNRJA4967-56-45 04:34:00 Test Item Value Reference Range Interpretation Comments Monocytes # (test code 1.3 See_Comment [Aut omated message] The = Monocytes #) system which generated this result tra nsmitted reference range : <=0.8. The reference r christiano was not used to int erpret this result as normal/abnormal . [facility] HospitalRylluvkSGRREAQLOO4699-76-87 04:34:00 Test Item Value Reference Range Interpretation Comments Eosinophils # (test code 0.1 See_Comment [A utomated message] The = Eosinophils #) system whic h generated this result tra nsmitted reference range : <=0.5. The reference r christiano was not used to int erpret this result as normal/abnormal . [facility] HospitalUbazbcaMLBTXWNZHN3447-89-56 04:34:00 Test Item Value Reference Range Interpretation Comments Basophils # (test code 0.1 See_Comment [Aut omated message] The = Basophils #) system which generated this result tra nsmitted reference range : <=0.2. The reference r christiano was not used to int erpret this result as normal/abnormal . [facility] DBPXQMS7649-51-44 04:34:00 Test Item Value Reference Range Interpretation Comments Troponin-I (test code no gt See_Comment [Auto mated message] The = Troponin-I) system which g enerated this result transmit [place] reference range : <=0.40. The reference r christiano was not used to interpr et this result as edy l/abnormal. [facility] [id number] 04:34:00 Test Item Value Reference Range Interpretation Comments Glucose Lvl (test code = Glucose Lvl) 125 70-99 [facility] [id number] 04:34:00 Test Item Value Reference Range Interpretation Comments BUN (test code = BUN) 17 7-22 [place] 797760-12-06 04:34:00 Test Item Value Reference Range Interpretation Comments Creatinine Lvl (test code = Creatinine 1.51 0.50-1.40 Lvl) [place] [address]-12-06 04:34:00 Test Item Value Reference Range Interpretation Comments Sodium Lvl (test code = Sodium Lvl) 142 135-145 [place] 797760-12-06 04:34:00 Test Item Value Reference Range Interpretation Comments Potassium Lvl (test code = Potassium 4.0 3.5-5.1 Lvl) [place] 797760-12-06 04:34:00 Test Item Value Reference Range Interpretation Comments Chloride Lvl (test code = Chloride Lvl) 108 95-109 [place] [address]-12-06 04:34:00 Test Item Value Reference Range Interpretation Comments CO2 (test code = CO2) 30 24-32 [place] 797760-12-06 04:34:00 Test Item Value Reference Range Interpretation Comments Calcium Lvl (test code = Calcium Lvl) 7.8 8.5-10.5 [place] 797760-12-06 04:34:00 Test Item Value Reference Range Interpretation Comments AGAP (test code = AGAP) 8.0 10.0-20.0 [place] 797760-12-06 04:34:00 Test Item Value Reference Range Interpretation Comments eGFR (test code = eGFR) 33 [place] [address]-12-06 04:34:00 Test Item Value Reference Range Interpretation Comments WBC X 10x3 (test code = WBC X 10x3) 9.7 3.7-10.4 [place] [address]-12-06 04:34:00 Test Item Value Reference Range Interpretation Comments RBC X 10x6 (test code = RBC X 10x6) 3.96 4.20-5.40 [place] 134920-12-06 04:34:00 Test Item Value Reference Range Interpretation Comments Hgb (test code = Hgb) 10.6 12.0-16.0 [place] [address]-12-06 04:34:00 Test Item Value Reference Range Interpretation Comments Hct (test code = Hct) 32.6 36.0-48.0 [facility] HospitalQptfvgmNLDANSSVPW4286-55-67 04:34:00 Test Item Value Reference Range Interpretation Comments MCV (test code = MCV) 82.3 80.0-98.0 [facility] HospitalHfjnvkqGFFEWTDJDA0139-26-57 04:34:00 Test Item Value Reference Range Interpretation Comments MCH (test code = MCH) 26.6 pg 27.0-31.0 [facility] HospitalMfrljuvZJYTSRGJTX9766-53-89 04:34:00 Test Item Value Reference Range Interpretation Comments MCHC (test code = MCHC) 32.4 32.0-36.0 [facility] HospitalVdzpjagIMXKIYDWKQ6470-87-27 04:34:00 Test Item Value Reference Range Interpretation Comments RDW (test code = RDW) 16.8 11.5-14.5 [facility] HospitalCfmkcvgRPRXZCSHCF5249-16-43 04:34:00 Test Item Value Reference Range Interpretation Comments Platelet (test code = Platelet) 178 133-450 [facility] HospitalUmwqtgwEMIPCZUTWQ3469-99-47 04:34:00 Test Item Value Reference Range Interpretation Comments MPV (test code = MPV) 8.0 7.4-10.4 [facility] HospitalQxjsrizCUTKBKMFBN3069-48-02 04:34:00 Test Item Value Reference Range Interpretation Comments PT (test code = PT) 14.7 s 12.0-14.7 [facility] HospitalJjxxhdnQNRUPHSKFH1472-58-90 04:34:00 Test Item Value Reference Range Interpretation Comments INR (test code = INR) 1.14 1 0.85-1.17 [id number] 04:34:00 Test Item Value Reference Range Interpretation Comments PTT (test code = PTT) 31.2 s 22.9-35.8 [place] [id number] 04:34:00 Test Item Value Reference Range Interpretation Comments Segs (test code = Segs) 73.9 45.0-75.0 [place] [id number] 04:34:00 Test Item Value Reference Range Interpretation Comments Lymphocytes (test code = Lymphocytes) 11.0 20.0-40.0 [id number] 04:34:00 Test Item Value Reference Range Interpretation Comments Monocytes (test code = Monocytes) 13.6 2.0-12.0 [place] [id number] 04:34:00 Test Item Value Reference Range Interpretation Comments Eosinophils (test code = 0.7 See_Comment [A utomated message] The Eosinophils) system which ge nerated this result tra nsmitted reference range : <=4.0. The reference r christiano was not used to int erpret this result as normal/abnormal . [id number] 04:34:00 Test Item Value Reference Range Interpretation Comments Basophils (test code = 0.8 See_Comment [Aut omated message] The Basophils) system which ge nerated this result tra nsmitted reference range : <=1.0. The reference r christiano was not used to int erpret this result as normal/abnormal . [facility] H[id number] 04:34:00 Test Item Value Reference Range Interpretation Comments Neutrophils # (test code = Neutrophils 7.2 1.5-8.1 #) [id number] 04:34:00 Test Item Value Reference Range Interpretation Comments Lymphocytes # (test code = Lymphocytes 1.1 1.0-5.5 #) [facility] H[id number] 04:34:00 Test Item Value Reference Range Interpretation Comments Monocytes # (test code 1.3 See_Comment [Aut omated message] The = Monocytes #) system which generated this result tra nsmitted reference range : <=0.8. The reference r christiano was not used to int erpret this result as normal/abnormal . [facility] H[id number] 04:34:00 Test Item Value Reference Range Interpretation Comments Eosinophils # (test code 0.1 See_Comment [A utomated message] The = Eosinophils #) system whic h generated this result tra nsmitted reference range : <=0.5. The reference r christiano was not used to int erpret this result as normal/abnormal . [facility] H[id number] 04:34:00 Test Item Value Reference Range Interpretation Comments Basophils # (test code 0.1 See_Comment [Aut omated message] The = Basophils #) system which generated this result tra nsmitted reference range : <=0.2. The reference r christiano was not used to int erpret this result as normal/abnormal . [facility] [id number] 04:34:00 Test Item Value Reference Range Interpretation Comments Troponin-I (test code no gt See_Comment [Auto mated message] The = Troponin-I) system which g enerated this result transmit sheba reference range : <=0.40. The reference r christiano was not used to interpr et this result as edy l/abnormal. [facility] [id number] 04:34:00 Test Item Value Reference Range Interpretation Comments Glucose Lvl (test code = Glucose Lvl) 125 70-99 [facility] [id number] 04:34:00 Test Item Value Reference Range Interpretation Comments BUN (test code = BUN) 17 7-22 [facility] [id number] 04:34:00 Test Item Value Reference Range Interpretation Comments Creatinine Lvl (test code = Creatinine 1.51 0.50-1.40 Lvl) [facility] SHOULDER 2+ VW [id number] 17:54:27 Comminuted distal clavicle fracture. EXAM: XR SHOULDER 2+ VW RIGHT HISTORY: shoulder pain COMPARISON: None. FINDINGS: A comminuted fracture of the distal clavicle is seen. There is resultantmild widening of the acromioclavicular joint. Alignment is maintained atthe glenohumeral joint which exhibits osteoarthritic changes manifested byjoint space narrowing and osteophytosis. Osteopenia is suggested.At herosclerotic calcifications are present in the aortic arch. Vtmb, Radiant Results Inft User - 06/28/2020 12:55 PM CDTEXAM:XR SHOULDER 2+ VW RIGHTHISTORY:shoulder pain COMPARISON:None.FINDINGS: A comminuted fracture of the distal clavicle is seen. There is resultantmild widening of the acromioclavicular joint. Alignment is maintained atthe glenohumeral joint which exhibits osteoarthritic changes manifested byjoint space narrowing and osteophytosis. Osteopenia is suggested.Atherosclerotic calcifications are present in the aortic arch.IMPRESSIONComminuted distal clavicle fracture. [facility] 2 VW [id number] 17:53:09 No acute bony abnormality. EXAM: XR FOREARM 2 VW RIGHT HISTORY: right arm pain COMPARISON: None. FINDINGS: Osteopenia is noted. 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 Mild osteoarthritic changes are present at theelbow. No acute fracture or dislocation is seen. Vtmb, Radiant Results Inft User - 06/28/2020 12:54 PM CDTEXAM:XR FOREARM 2 VW RIGHTHISTORY:right arm pain COMPARISON:None.FINDINGS: Osteopenia is noted. 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 Mild osteoarthritic changes are present at theelbow. No acute fracture or dislocation is seen.IMPRESSIONNo acute bony abnormality.[facility]
[2022-10-03 14:25] LABS: Absolute Lymphocytes (CBC) 1.8 K/uL (0.7-4.9); Hematocrit 34.7 % (36.0-45.0); Lymphocytes % 22.9 % (15.3-44.8); MCV 90.7 fL (80-100); MPV 7.6 fL (7.6-11.3); RBC Red Blood Cell Count 3.83 M/uL (3.86-4.86)
[2022-10-03 14:43] LABS: Potassium 4.2 mmol/L (3.5-5.1); Troponin High Sensitivity 9.7 pg/mL (<58.9)
[2022-10-03 14:45] LABS: Urine Blood Negative (Negative); Urine Glucose Negative (Negative); Urine Protein 1+ (Negative)
[2022-10-03] MEDS ORDERED: NA CHLORIDE 0.9% 500 ML ONE (15:00)
--- NOTE | 2022-10-03 15:22 | RAD REPORT ---
EXAM DESCRIPTION: CTAbdomen Pelvis Wo Contrast - 10/03/2022 2:57 pm CLINICAL HISTORY: abd pain COMPARISON: Abdomen Pelvis W Contrast dated 10/02/2017; CT ABDOMEN PELVIS WO CONTRAST dated 3; CT ABDOMEN PELVIS WO CONTRAST dated 02/17/2013 TECHNIQUE: CT of the abdomen and pelvis was performed without contrast. All CT scans are performed using dose optimization technique as appropriate and may include automated exposure control or mA/KV adjustment according to patient size. FINDINGS: Lower chest: Multi-vessel coronary artery disease. Liver: No acute abnormality or suspicious lesions. Biliary: Cholecystectomy. Mild extrahepatic biliary duct dilatation likely related to the postcholecy stectomy state. Stomach: No significant focal abnormality. Duodenum: No significant focal abnormality. Pancreas: No significant abnormality. Spleen: No significant abnormality. Adrenal: No suspicious lesions. Kidney/ureter: No hydronephrosis. No renal calculi. Bilateral renal lesions which are most likely rep resenting cyst. Retroperitoneum: No retroperitoneal adenopathy. Vascular: Atherosclerosis without aneurysm. Bowel: Diverticulosis without diverticulitis.. Peritoneum: No ascites or free air. Bladder: Grossly unremarkable. Reproductive: Hysterectomy. Bones: No acute fracture. Fusion across L1-2 may be developmental. Multilevel degenerative changes ar e present in the spine. Other: n/a IMPRESSION: No acute intra-abdominal or pelvic finding. Incidental findings as noted above.
--- NOTE | 2022-10-03 15:25 | RAD REPORT ---
EXAM DESCRIPTION: RAD - Chest Single View - 10/03/2022 3:18 pm CLINICAL HISTORY: low bp COMPARISON: Chest Pa And Lat (2 Views) dated 09/20/2022; Chest Single View dated 01/04/2022; Chest Sin gle View dated 12/30/2021; Chest Single View dated 06/30/2021 FINDINGS: Lines: None. Lungs: No evidence of edema or pneumonia. Pleural: No significant pleural effusions or pneumothorax. Linear scarring or subsegmental atelectasi s in the lung bases. Cardiac: The heart size is within normal limits. Mediastinum: Within normal limits. Bones: No acute fractures. Left shoulder arthroplasty. Other: None IMPRESSION: No acute cardiopulmonary disease. No significant change from prior.
[2022-10-03 18:21] LABS: Urine Blood Negative (Negative); Urine Glucose Negative (Negative); Urine Protein Negative (Negative); Urine Specific Gravity 1.015 (1.005-1.030); Urine pH 5.5 (5.0-7.0)
[2022-10-03 18:40] LABS: Urine Bacteria <20 /HPF (<20); Urine Crystals Unidentified Few /HPF (None Seen); Urine Mucus Slight /HPF (None Seen); Urine RBC <5 /HPF (None Seen)
--- NOTE | 2022-10-03 18:48 | EDPHYS ---
Physician Documentation [facility] Name: Radha Bentley Age: 81 yrs Sex: Female : 1940 Arrival Date: 10/03/2022 Time: 13:38 Bed 24 Private MD: ED Physician Ashish Morales HPI: 10/03 18:09 This 81 yrs old Female presents to ER via Wheelchair with complaints of Low BP. kb 18:09 The patient presents with lightheadedness. Onset: The symptoms/episode began/occurred kb today. Context: occurred [facility] waiting room, occurred while the patient was sitting, just prior to the episode the patient experienced no apparent symptoms. Modifying factors: The symptoms are alleviated by nothing, the symptoms are aggravated by standing up, changing position. Associated signs and symptoms: The patient has no apparent associated signs or symptoms. Severity of symptoms: At their worst the symptoms were mild moderate in the emergency department the symptoms are unchanged. Patient's baseline: Neuro: alert and fully oriented, Motor: no deficits, Ambulation: walks without assistance, Speech: normal. The patient has not experienced similar symptoms in the past. The patient has not recently seen a physician. Pt reports she was waiting to have her blood work done and suddenly felt lightheaded/dizzy. States she made an appt to return for the blood work at 1315 and went home. She checked her BP once there and it was 90s/40s. When she went back for her blood work she asked if that blood pressure was worrisome, the yacht master called Dr Mann's office and told her to have pt come to the ED for evaluation. Historical: - Allergies: 13:49 Avelox; ap3 13:49 Band-aid adhesive; ap3 - Home Meds: 17:46 Amlodipine [Active]; bupropion HCl Oral [Active]; escitalopram oxalate Oral [Active]; em6 gabapentin Oral [Active]; Lasix Oral [Active]; - PMHx: 13:49 ADD/ADHD; COPD; Heart Murmur; Hyperlipidemia; Hypertension; Hypothyroidism; Kidney ap3 disease; - PSHx: 13:49 bilateral knee replacement; breast reduction; Cholecystectomy; Shoulder replacment; ap3 - Immunization history:: Flu vaccine is up to date. - Social history:: Smoking status: Patient denies any tobacco usage or history of. ROS: 18:07 Constitutional: Negative for fever, chills, and weight loss. kb 18:07 Neuro: Positive for dizziness, lightheadedness. 18:07 All other systems are negative. 18:08 Abdomen/GI: Positive for diarrhea, Negative for abdominal pain, nausea and vomiting. kb Exam: 18:07 Constitutional: This is a well developed, well nourished patient who is awake, alert, kb and in no acute distress. Head/Face: Normocephalic, atraumatic. ENT: Moist Mucous membranes Cardiovascular: Regular rate and rhythm with a normal S1 and S2. No gallops, murmurs, or rubs. No pulse deficits. Respiratory: Respirations even and unlabored. No increased work of breathing. Talking in full sentences Skin: Warm, dry with normal turgor. Normal color. MS/ Extremity: Pulses equal, no cyanosis. Neurovascular intact. Full, normal range of motion. Neuro: Awake and alert, GCS 15, oriented to person, place, time, and situation. Moves all extremities. Normal gait. Psych: Awake, alert, with orientation to person, place and time. Behavior, mood, and affect are within normal limits. 18:08 Abdomen/GI: Inspection: abdomen appears normal, Bowel sounds: normal, Palpation: soft, kb in all quadrants, moderate abdominal tenderness, in the left lower quadrant. 18:23 ECG was reviewed by the Attending Physician. kb Vital Signs: 13:48 BP 115 / 47; Pulse 51; Resp 18; Temp 98.2; Pulse Ox 98% on R/A; Weight 83.91 kg; Height ap3 4 ft. 11 in. (149.86 cm); 13:51 BP 112 / 50; ap3 14:00 BP 126 / 64; Pulse 56; Resp 16; Pulse Ox 96% on R/A; db 14:15 BP 141 / 51 Supine; Pulse 57; Resp 18; db 14:18 BP 124 / 52 Sitting; Pulse 59; db 14:22 BP 110 / 90 Standing; Pulse 60; db 16:28 BP 140 / 78; Pulse 69; Resp 18; Pulse Ox 95% ; em6 17:15 BP 142 / 68; Pulse 62; Resp 20; Pulse Ox 94% on R/A; em6 18:53 BP 158 / 80; Pulse 66; Resp 18; Pulse Ox 95% on R/A; em6 13:48 Body Mass Index 37.37 (83.91 kg, 149.86 cm) ap3 MDM: 13:52 Patient medically screened. kb 18:03 Data reviewed: vital signs, nurses notes. Data interpreted: Pulse oximetry: on room air kb is 94 %. Interpretation: normal. Counseling: I had a detailed discussion with the patient and/or guardian regarding: the historical points, exam findings, and any diagnostic results supporting the discharge/admit diagnosis, lab results, radiology results, the need for outpatient follow up, a family practitioner, to return to the emergency department if symptoms worsen or persist or if there are any questions or concerns that arise at home. ED course: Consideration of hospitalization: considered hospitalization for hypotension and lightheadedness, but after treatment pt is no longer lightheaded, normotensive, ambulatory with steady gait, feeling better and wants to go home. Pt given return precautions. Labs at baseline for pt; Management of the patient was discussed with the following: Dr Morales; Diagnostic test considered but not performed: CT head considered, but after normal neuro exam and positive orthostatics, it was not indicated; Review of external records: Reviewed labs, specifically creatinine, from previous hospitalizations; History obtained from: patient. 10/03 13:53 Order name: Basic Metabolic Panel; Complete Time: 14:45 kb 10/03 13:53 Order name: CBC with Diff; Complete Time: 14:39 kb 10/03 13:53 Order name: Troponin HS; Complete Time: 14:45 kb 10/03 14:46 Order name: Urine Dipstick-Ancillary; Complete Time: 14:46 EDMS 10/03 17:55 Order name: Urine Microscopic Only; Complete Time: 18:46 kb 10/03 18:21 Order name: Urine Dipstick-Ancillary; Complete Time: 18:23 EDMS 10/03 13:53 Order name: XRAY Chest (1 view); Complete Time: 15:29 kb 10/03 13:53 Order name: EKG; Complete Time: 13:54 kb 10/03 13:53 Order name: Cardiac monitoring; Complete Time: 14:47 kb 10/03 13:53 Order name: EKG - Nurse/Tech; Complete Time: 14:50 kb 10/03 13:53 Order name: IV Saline Lock; Complete Time: 14:20 kb 10/03 14:46 Order name: CT Abd/Pelvis - Without Contrast; Complete Time: 15:29 kb 10/03 13:53 Order name: Labs collected and sent; Complete Time: 14:21 kb 10/03 13:53 Order name: O2 Per Protocol; Complete Time: 13:57 kb 10/03 13:53 Order name: O2 Sat Monitoring; Complete Time: 13:57 kb 10/03 13:53 Order name: Orthostatics; Complete Time: 14:45 kb 10/03 13:53 Order name: Urine Dipstick-Ancillary (obtain specimen); Complete Time: 14:45 kb EC:23 Rate is 54 beats/min. Rhythm is regular. Left axis deviation noted. MN interval is kb prolonged at 248 msec. QRS interval is normal at 122 msec. QT interval is normal at 468 msec. Administered Medications: 15:03 Drug: NS 0.9% 500 ml Route: IV; Rate: bolus; Site: right wrist; db 16:00 Follow up: Response: No adverse reaction; IV Status: Completed infusion; IV Intake: em6 500ml Disposition Summary: 10/03/22 18:47 Discharge Ordered Location: Home kb Condition: Stable kb Diagnosis - Dizziness and giddiness kb - Volume depletion, unspecified kb Followup: kb - With: Emergency Department - When: As needed - Reason: Worsening of condition Followup: kb - With: Private Physician - When: 2 - 3 days - Reason: Recheck today's complaints, Continuance of care, Re-evaluation by your physician Discharge Instructions: - Discharge Summary Sheet kb - Dehydration, Adult, [id number] kb - Dizziness, [id number] kb Forms: - Medication Reconciliation Form kb - Thank You Letter kb - Antibiotic Education kb - Prescription Opioid Use kb Signatures: Dispatcher [employer] EDHI Alycia Euceda, GREEN PLUMBER-C GREEN PLUMBER-Alison Hendricks RN RN liv3 Tammy Shukla RN RN em6 Snehal Aponte RN RN db Corrections: (The following items were deleted from the chart) 14:51 14:35 Abdomen Pelvis W Con+CT.RAD.BRZ ordered. [facility] EDMS 18:08 18:07 Constitutional: This is a well developed, well nourished patient who is awake, kb alert, and in no acute distress. Head/Face: Normocephalic, atraumatic. ENT: Moist Mucous membranes Cardiovascular: Regular rate and rhythm with a normal S1 and S2. No gallops, murmurs, or rubs. No pulse deficits. Respiratory: Respirations even and unlabored. No increased work of breathing. Talking in full sentences Abdomen/GI: Soft, non-tender. No distention Skin: Warm, dry with normal turgor. Normal color. MS/ Extremity: Pulses equal, no cyanosis. Neurovascular intact. Full, normal range of motion. Neuro: Awake and alert, GCS 15, oriented to person, place, time, and situation. Moves all extremities. Normal gait. Psych: Awake, alert, with orientation to person, place and time. Behavior, mood, and affect are within normal limits. kb 18:11 18:03 ED course: Consideration of hospitalization: considered hospitalization for kb hypotension and lightheadedness, but after treatment pt is no longer lightheaded, normotensive, feeling better and wants to go home. Pt given return precautions. Labs at baseline for pt; Management of the patient was discussed with the following: Dr Morales; Diagnostic test considered but not performed: CT head considered, but after normal neuro exam and positive orthostatics, it was not indicated; Review of external records: Reviewed labs, specifically creatinine, from previous hospitalizations; History obtained from: patient. kb
--- NOTE | 2022-10-03 18:48 | ER ---
Nurse's Notes [facility] Name: Radha Bentley Age: 81 yrs Sex: Female : 1940 Arrival Date: 10/03/2022 Time: 13:38 Bed 24 Private MD: Diagnosis: Dizziness and giddiness;Volume depletion, unspecified Presentation: 10/03 13:47 Chief complaint: Patient states: she took her blood pressure at home twice and it was ap3 91/47, and she was feeling "a little woozy" so she came to be evaluated. Coronavirus screen: At this time, the client does not indicate any symptoms associated with coronavirus-19. Ebola Screen: No symptoms or risks identified at this time. Initial Sepsis Screen: Does the patient meet any 2 criteria? Does the patient have a suspected source of infection? No. Patient's initial sepsis screen is negative. Risk Assessment: Do you want to hurt yourself or someone else? Patient reports no desire to harm self or others. Onset of symptoms was October 03, 2022. 13:47 Method Of Arrival: Wheelchair ap3 13:47 Acuity: VAIBHAV 3 ap3 Triage Assessment: 13:50 General: Appears in no apparent distress. Behavior is calm, cooperative. Pain: Denies ap3 pain. Neuro: Level of Consciousness is awake, alert, obeys commands, Oriented to person, place, time, situation, Speech is normal, Reports "feeling woozy". Cardiovascular: Patient's skin is warm and dry. Respiratory: Airway is patent Respiratory effort is even, unlabored, Respiratory pattern is regular, symmetrical. Historical: - Allergies: 13:49 Avelox; ap3 13:49 Band-aid adhesive; ap3 - Home Meds: 17:46 Amlodipine [Active]; bupropion HCl Oral [Active]; escitalopram oxalate Oral [Active]; em6 gabapentin Oral [Active]; Lasix Oral [Active]; - PMHx: 13:49 ADD/ADHD; COPD; Heart Murmur; Hyperlipidemia; Hypertension; Hypothyroidism; Kidney ap3 disease; - PSHx: 13:49 bilateral knee replacement; breast reduction; Cholecystectomy; Shoulder replacment; ap3 - Immunization history:: Flu vaccine is up to date. - Social history:: Smoking status: Patient denies any tobacco usage or history of. Screenin:51 Abuse screen: Denies threats or abuse. Nutritional screening: No deficits noted. ap3 Tuberculosis screening: No symptoms or risk factors identified. 15:00 [facility] ED Fall Risk Assessment (Adult) History of falling in the last 3 months, em6 including since admission No falls in past 3 months (0 pts) Confusion or Disorientation No (0 pts) Intoxicated or Sedated No (0 pts) Impaired Gait No (0 pts) Mobility Assist Device Used No (0 pt) Altered Elimination No (0 pt) Score/Fall Risk Level 0 - 2 = Low Risk Oriented to surroundings, Maintained a safe environment, Educated pt \\T\\ family on fall prevention, incl call for assistance when getting out of bed, Assessed \\T\\ reinforced patient's understanding of fall precautions, Provided non-skid footwear, Hourly rounding (assess needs \\T\\ fall precautionary measures) done, Used ambulatory aids as needed (educated on \\T\\ assisted with), Used gait belt as appropriate. Assessment: 14:00 Reassessment: Patient appears in no apparent distress at this time. Patient and/or db family updated on plan of care and expected duration. Pain level reassessed. Patient is alert, oriented x 3, equal unlabored respirations, skin warm/dry/pink. states had dizziness and light headed took BP and had low BP. General: Appears in no apparent distress. comfortable, Behavior is calm, cooperative, appropriate for age, quiet. Pain: Denies pain. Neuro: No deficits noted. Level of Consciousness is awake, alert, obeys commands, Oriented to person, place, time, situation, Moves all extremities. Speech is normal. Cardiovascular: No deficits noted. 15:12 Reassessment: Patient appears in no apparent distress at this time. Patient and/or em6 family updated on plan of care and expected duration. Pain level reassessed. Patient is alert, oriented x 3, equal unlabored respirations, skin warm/dry/pink. 16:10 Reassessment: Patient appears in no apparent distress at this time. Patient and/or em6 family updated on plan of care and expected duration. Pain level reassessed. Patient is alert, oriented x 3, equal unlabored respirations, skin warm/dry/pink. 17:10 Reassessment: Patient appears in no apparent distress at this time. Patient and/or em6 family updated on plan of care and expected duration. Pain level reassessed. Patient is alert, oriented x 3, equal unlabored respirations, skin warm/dry/pink. 18:10 Reassessment: Patient appears in no apparent distress at this time. Patient and/or em6 family updated on plan of care and expected duration. Pain level reassessed. Patient is alert, oriented x 3, equal unlabored respirations, skin warm/dry/pink. Vital Signs: 13:48 BP 115 / 47; Pulse 51; Resp 18; Temp 98.2; Pulse Ox 98% on R/A; Weight 83.91 kg; Height ap3 4 ft. 11 in. (149.86 cm); 13:51 BP 112 / 50; ap3 14:00 BP 126 / 64; Pulse 56; Resp 16; Pulse Ox 96% on R/A; db 14:15 BP 141 / 51 Supine; Pulse 57; Resp 18; db 14:18 BP 124 / 52 Sitting; Pulse 59; db 14:22 BP 110 / 90 Standing; Pulse 60; db 16:28 BP 140 / 78; Pulse 69; Resp 18; Pulse Ox 95% ; em6 17:15 BP 142 / 68; Pulse 62; Resp 20; Pulse Ox 94% on R/A; em6 18:53 BP 158 / 80; Pulse 66; Resp 18; Pulse Ox 95% on R/A; em6 13:48 Body Mass Index 37.37 (83.91 kg, 149.86 cm) ap3 ED Course: 13:38 Patient arrived in ED. rg4 13:48 Triage completed. ap3 13:51 Arm band placed on right wrist. ap3 13:52 Aly[facility]uceda [facility]-C [facility]. kb 13:52 Ashish Morales MD is Attending Physician. kb 13:57 Patient has correct armband on for positive identification. Bed in low position. Call ap3 light in reach. Side rails up X 1. Adult w/ patient. 14:21 Basic Metabolic Panel Sent. bc6 14:21 CBC with Diff Sent. bc6 14:21 Troponin HS Sent. bc6 14:21 Initial lab(s) drawn, by me, sent to lab. Inserted saline lock: 20 gauge in right bc6 forearm, using aseptic technique. 14:27 Snehal Aponte, RN is Primary Nurse. db 14:59 CT Abd/Pelvis - Without Contrast In Process Unspecified. EDMS 15:20 XRAY Chest (1 view) In Process Unspecified. EDMS 18:51 No provider procedures requiring assistance completed. IV discontinued, intact, em6 bleeding controlled, No redness/swelling at site. Pressure dressing applied. Administered Medications: 15:03 Drug: NS 0.9% 500 ml Route: IV; Rate: bolus; Site: right wrist; db 16:00 Follow up: Response: No adverse reaction; IV Status: Completed infusion; IV Intake: em6 500ml Medication: 18:48 VIS not applicable for this client. em6 Intake: 16:00 IV: 500ml; Total: 500ml. em6 Outcome: 18:47 Discharge ordered by . marvin 18:52 Discharged to home via wheelchair, with family. em6 18:52 Condition: stable 18:52 Discharge instructions given to patient, Instructed on discharge instructions, follow up and referral plans. Demonstrated understanding of instructions, follow-up care. 18:59 Patient left the ED. em6 Signatures: Dispatcher [employer] EDMS Alycia Euceda, HOT PUNCH PRESS OPERATOR-C HOT PUNCH PRESS OPERATOR-Ivanna Pickens rg4 Alison Mcguire RN RN ap3 Tammy Shukla RN RN em6 Snehal Aponte, RN RN db Melanie Isaac bc6 Corrections: (The following items were deleted from the chart) 14:30 14:29 BP 110 / 90; Pulse 56bpm; Resp 16bpm; Pulse Ox 98% RA; em6 em6
[2022-10-03 19:18] VITALS: TEMP 98.2
[2022-10-03 19:26] VITALS: BP 158/80; O2SAT 95
--- NOTE | 2022-10-04 16:04 | EKG ---
Test Date: 2022-10-03 Test Time: 14:45:53 Benefits Coordinator: ARMAAN MEASUREMENT RESULTS: Intervals: Rate: 54 CT: 248 QRSD: 122 QT: 494 QTc: 468 [place]: P: 90 CT: 248 QRS: -39 T: 31 INTERPRETIVE STATEMENTS: Sinus bradycardia with 1st degree AV block Left axis deviation Left ventricular hypertrophy with QRS widening Abnormal ECG Compared to ECG 01/04/2022 10:07:46 ST (T wave) deviation no longer present Prolonged QT interval no longer present Electronically Signed On 10-04-22 16:03:42 [employer] by Andre Arriaga
== END 2022-10-03 18:59 | disposition home or self-care (01) ==
LOC: ER 13:35
DX: E86.9 Volume depletion, unspecified (principal); I10 Essential (primary) hypertension; J44.9 Chronic obstructive pulmonary disease, unspecified; Z96.653 Presence of artificial knee joint, bilateral; Z88.6 Allergy status to analgesic agent; Z91.048 Other nonmedicinal substance allergy status
CPT/HCPCS: 93005; 85025; 80048; 36415; 84484; 74176; 71045; 96360; 99284; J7040; 81003; 81015

== ENCOUNTER 2022-11-20 23:15 | Emergency (ER) | payer MEDICARE ==
--- OUTSIDE RECORDS SUMMARY | 2022-11-20 23:27 | XMS REPORT | Continuity of Care Document ---
:1940 Author Organization [facility] t Address [address] [place] [address] Care Team Providers Name Role Phone SMILEY HOLDER Primary Care Physician Unavailable Anurag Sanderson Attending Clinician Unavailable Allegra Laura Attending Clinician CARLY SINCLAIR Attending Clinician Unavailable Carly Sinclair DO Attending Clinician Sunny Attending Clinician Unavailable Jeffrey Garcia Attending Clinician Olivia-Mbayo_A_AH Attending Clinician Unavailable Caitlyn Jerez Attending Clinician [phone] Vincent oSni Attending Clinician Miller PAC, Sariah S Attending [...] Expiration Date S kristen [employer] [place] [id number] 2019 CLASSIC/VALUE 00:00:00 DEVOTED HEALTH [id number] 2020 MEDICARE ADVANTAGE 00:00:00 PLAN DEVOTED HEALTH [id number] 2020 (MEDICARE 00:00:00 REPLACEMENT HMO) [employer] OF [place] - [id number] 2019 [place] (MEDICARE 00:00:00 REPLACEMENT/ADVANTA GE - HMO) Problems Condition Condition Condition Status Onset Resolution Last Treating Co mments Source Name Details Category Date Date Treatment Clinician Date FALL FROM FALL FROM Diagnosis Active 2019-102020-09-16 Memoria STANDING STANDING 2 21:55:00 l Active 00:00: Raul 09/04/[address] [facility] S/P FALL, S/P Diagnosis Active 2019-102020-09-05 Memoria FRACTURED FALL, 2 00:45:00 l RIGHT FRACTURED 00:00: Raul WRIST, RIGHT 00 HEAD HE WRIST, HEAD HE Active 09/04/[address] [facility] [id number] 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 - [facility] repl[facility]emen [facility] 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 [facility] [id number] Primary Problem Comm on osteoarthr Spirit itis, - [facility] right ankle and [facility] foot [facility] [id number] Primary Problem 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 [facility] arpal [facility] [place] [facility] right hand [id number] Acute pain Problem Com mon of right Spirit shoulder - [facility] [id number] 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 [facility] [id number] Arthritis Problem Com mon of hand Spirit - [facility] Hypertensi Hypertens Problem Active 2022-04-30 Memoria ve lyle 22:34:31 l disorder, disorder, Herm bernie systemic systemic arterial arterial (disorder) (disorder) Active Problem 04/30/2022 [facility] Hyperlipid Hyperlipi Problem Active 2022-04-30 Memoria emia demia 22:34:31 l (disorder) (disorder) He rmann Active Problem 04/30/2022 [facility] Hypothyroi Hypothyro Problem Active 2022-04-30 Memoria dism idism 22:34:31 l (disorder) (disorder) He rmann Active Problem 04/30/2022 [facility] Memory Memory Problem Active 2022-04-30 Mem oria impairment impairment 22:34:31 l (finding) (finding) Herm bernie Active Problem 04/30/2022 [facility] Morbid Morbid Problem Active 2022-04-30 Jose Francisco zhang obesity obesity 22:34:31 l (disorder) (disorder) He rmann Active Problem 04/30/2022 [facility] Recurrent Recurrent Problem Active 2022-04-30 Memoria falls falls 22:34:31 l (finding) (finding) Herm bernie Active Problem 04/30/2022 [facility] Transient Transient Problem Active 2022-04-30 Memoria ischemic ischemic 22:34:31 l attack attack [place] (disorder) (disorder) Active Problem 04/30/2022 [facility] Tremor Tremor Problem Active 2022-04-30 Jose Francisco zhang (finding) (finding) 22:34:31 l Active Raul Problem 04/30/2022 [facility] Chronic Chronic Problem Active 2022-04-30 Me moria kidney kidney 22:34:31 l disease disease Raul (disorder) (disorder) Active Problem 04/30/2022 [facility] 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 [place] disease disease (disorder) (disorder) Active Problem 04/30/2022 [facility] Depressive Problem Active 2022-04-30 M emoria disorder Depressive 22:34:31 l (disorder) disorder Herm bernie (disorder) Active Problem 04/30/2022 [facility] Essential Essential Problem Active 2022-04-30 Memoria tremor tremor 22:34:31 l (disorder) (disorder) He rmann Active Problem 04/30/2022 [facility] UNSPECIFIE UNSPECIFI Diagnosis Active 2020-09-16 Memoria D FALL, ED FALL, 21:55:00 l INITIAL INITIAL [place] ENCOUNTER ENCOUNTER Active [facility] Allergies, Adverse Reactions, Alerts Allergy Allergy Status Severity Reaction(s) Onset Inactive Treating Comm ents Source Name Type Date Date Clinician ADHESIVE DRUG Active Med Rash Univers TAPE-BRIGETTE 8-30 ity of ICONES 00:00: [address] MOXIFLOX DRUG Active Med Rash Univers ACIN HCL INGREDI 8-30 ity of 00:00: [address] Adhesive Propensi Active Rash Univer s Tape-Brigette ty to 8-30 ity of icones adverse 00:00: [place] reaction 00 [facility] [place] drug Moxiflox Propensi Active Rash Univer s acin Hcl ty to 8-30 ity of adverse 00:00: [place] reaction 00 Medical [facility] [place] [facility] moxiflox DA Active [facility] acin HCl 2-15 West 00:00: [address] BANDAIDS DA Active [place] [facility] ADHESIVE 2-15 [place] 00:00: [address] Avelox Avelox Active [place]^Mild Memoria l [place] Avelox Allergy Active Rash [facility] substanc Group e Social History Social Habit Start Date Stop Date Quantity Comments Source History of Common Spirit - Tobacco Use [facility] Sex Assigned At Common Sp cristian - [facility] ASSERTION [facility] Alcohol Comment Occasional [facility] Drinker [facility] Exposure to 2022-07-26 2022-08-05 Not sure [facility] SARS-CoV-2 00:00:00 12:21:00 [facility] ([facility]) [place] Alcohol intake 2022-08-05 2022-08-05 0 /d University of 00:00:00 00:00:00 [facility] Social History 2020-09-05 2020-09-05 Nancy najera 14:31:45 14:31:45 Tobacco use and 2020-06-28 2020-06-28 Never used Universit y of exposure 00:00:00 00:00:00 [facility] Smoking Status Start Date Stop Date Source Former Smoker 2022-07-28 00:00:00 2022-07-28 00:00:00 Common S pirit - [facility] Ce nter Never smoked tobacco [facility] Medications Ordered Filled Start Stop Current Ordering Indication Dosage Frequency Signature Comments Components Source Medication Medication Date Date Medication? Clinician (SIG) Name Name albuterol 2021-10 5mg 5 mg, Univer s (PROVENTIL) 10-05 Inhalation i ty of 2.5 mg /3 18:15: 17:40 , [place]CE[place] (0.083 00 :00 dose, On Medica l %) [facility] nebulizer 08/05/22 at solution 5 1315, DIMITRIS mg primidone Yes 50 mg = 1 Mem oria 50 mg oral 2-02 tab, PO, l tablet 20:46: Bedtime, # Jessie nn 00 90 tab, 2 Refill(s), Pharmacy: [id number], 149.86, cm, 11/02/21 14:32:00 PATTERN MARKING SUPERVISOR, Height, 90.455, kg, 11/02/21 14:32:00 PATTERN MARKING SUPERVISOR, Weight primidone 2021-0 Yes 50 mg = 1 Mem oria 50 mg oral 2-02 tab, PO, l tablet 20:46: Bedtime, # Jessie nn 00 90 tab, 2 Refill(s), Pharmacy: [id number], 149.86, cm, 11/02/21 14:32:00 PATTERN MARKING SUPERVISOR, Height, 90.455, kg, 11/02/21 14:32:00 PATTERN MARKING SUPERVISOR, Weight primidone 2021-0 Yes 50 mg = 1 Mem oria 50 mg oral 2-02 tab, PO, l tablet 20:46: Bedtime, # Jessie nn 00 90 tab, 2 Refill(s), Pharmacy: [id number], 149.86, cm, 11/02/21 14:32:00 PATTERN MARKING SUPERVISOR, Height, 90.455, kg, 11/02/21 14:32:00 PATTERN MARKING SUPERVISOR, Weight primidone Yes 50 mg = 1 Mem oria 50 mg oral 2-02 tab, PO, l tablet 20:46: Bedtime, # Jessie nn 00 90 tab, 2 Refill(s), Pharmacy: [facility] #[id number], 149.86, cm, 11/02/21 14:32:00 PATTERN MARKING SUPERVISOR, Height, 90.455, kg, 11/02/21 14:32:00 PATTERN MARKING SUPERVISOR, Weight primidone Yes 50 mg = 1 Mem oria 50 mg oral 2-02 tab, PO, l tablet 20:46: Bedtime, # Jessie nn 00 90 tab, 2 Refill(s), Pharmacy: [facility] #[id number], 149.86, cm, 11/02/21 14:32:00 PATTERN MARKING SUPERVISOR, Height, 90.455, kg, 11/02/21 14:32:00 PATTERN MARKING SUPERVISOR, Weight NIFEdipine Yes TAKE 1 Memor ia (Eqv-Adalat 2-02 TABLET BY l CC) 30 mg 20:38: MOUTH [place] oral 00 EVERY DAY tablet, ON EMPTY extended STOMACH release FOR 30 DAYS Furosemide Yes TAKE 1 Memor ia 40 MG Oral 2-02 TABLET BY l Tablet 20:38: MOUTH [place] 00 EVERY DAY NEEDED FOR SWELLING tramadol Yes TAKE 1 Memoria hydrochlori 2-02 TABLET BY l de 50 MG 20:38: MOUTH [place] Oral Tablet 00 EVERY 6 TO 8 HOURS NEEDED predniSONE Yes TAKE 1 Memor ia 10 mg oral 2-02 TABLET BY l tablet 20:38: MOUTH [place] 00 EVERY DAY FOR 90 DAYS doxycycline Yes TAKE 1 Jose Francisco zhang hyclate 100 2-02 CAPSULE BY l MG Oral 20:38: MOUTH [place] Capsule 00 TWICE A DAY Colestipol Yes [...] BY l CC) 30 mg 20:38: MOUTH [place] oral 00 EVERY DAY tablet, ON EMPTY extended STOMACH release FOR 30 DAYS Furosemide Yes TAKE 1 Memor ia 40 MG Oral 2-02 TABLET BY l Tablet 20:38: MOUTH [place] 00 EVERY DAY NEEDED FOR SWELLING tramadol [...] CAPSULE BY l MG Oral 20:38: MOUTH [place] Capsule 00 TWICE A DAY Colestipol Yes TAKE 1 Memor ia Hydrochlori 2-02 TABLET BY l de 1000 MG 20:38: MOUTH Ajay n Oral Tablet 00 TWICE A DAY pantoprazol Yes TAKE 1 Jose Francisco zhang e 40 mg 2-02 TABLET BY l oral 20:38: MOUTH 2 [place] enteric 00 TIMES coated DAILY HALF tablet HOUR BEFORE BREAKFAST OR FIRST MEAL oxybutynin Yes TAKE 1 Memor ia 5 mg oral 2-02 TABLET BY l tablet 20:38: MOUTH [place] 00 THREE TIMES A DAY NIFEdipine Yes TAKE 1 Memor ia (Eqv-Adalat 2-02 TABLET BY l CC) 30 mg 20:38: MOUTH Raul oral 00 EVERY DAY tablet, ON EMPTY extended STOMACH release FOR 30 DAYS Furosemide Yes TAKE 1 Memor ia 40 MG Oral 2-02 TABLET BY l Tablet 20:38: MOUTH [place] 00 EVERY DAY NEEDED FOR SWELLING tramadol [...] 2-02 TABLET BY l tablet 20:38: MOUTH [place] 00 THREE TIMES A DAY NIFEdipine Yes TAKE 1 Memor ia (Eqv-Adalat 2-02 TABLET BY l CC) 30 mg 20:38: MOUTH [place] oral 00 EVERY DAY tablet, ON EMPTY extended STOMACH release FOR 30 DAYS Furosemide Yes TAKE 1 Memor ia 40 MG Oral 2-02 TABLET BY l Tablet 20:38: MOUTH Raul 00 EVERY DAY NEEDED FOR SWELLING tramadol Yes TAKE 1 Memoria hydrochlori 2-02 TABLET BY l de 50 MG 20:38: MOUTH [place] Oral Tablet 00 EVERY 6 TO 8 HOURS NEEDED predniSONE Yes TAKE 1 Memor ia 10 mg oral 2-02 TABLET BY l tablet 20:38: MOUTH Raul 00 EVERY DAY FOR 90 DAYS doxycycline Yes TAKE 1 Jose Francisco zhang hyclate 100 2-02 CAPSULE BY l MG Oral 20:38: MOUTH [place] Capsule 00 TWICE A DAY Colestipol Yes [...] BY l CC) 30 mg 20:38: MOUTH [place] oral 00 EVERY DAY tablet, ON EMPTY extended STOMACH release FOR 30 DAYS Furosemide Yes TAKE 1 Memor ia 40 MG Oral 2-02 TABLET BY l Tablet 20:38: MOUTH [place] 00 EVERY DAY NEEDED FOR SWELLING tramadol Yes TAKE 1 Memoria hydrochlori 2-02 TABLET BY l de 50 MG 20:38: MOUTH [place] Oral Tablet 00 EVERY 6 TO 8 HOURS NEEDED predniSONE Yes TAKE 1 Memor ia 10 mg oral 2-02 TABLET BY l tablet 20:38: MOUTH Raul 00 EVERY DAY FOR 90 DAYS doxycycline Yes TAKE 1 Jose Francisco zhang hyclate 100 2-02 CAPSULE BY l MG Oral 20:38: MOUTH [place] Capsule 00 TWICE A DAY Colestipol Yes [...] tab, Ajay n 00 1 Refill(s), Pharmacy: [id number], 149.86, cm, 12/24/20 13:59:00 CDT, Height, 93.182, kg, 12/24/20 13:59:00 CDT, Weight primidone Yes 50 mg = 1 Mem oria 50 mg oral 3-26 tab, PO, l tablet 19:08: Bedtime, # Jessie nn 00 90 tab, 2 Refill(s), Pharmacy: [facility] #[id number], 149.86, cm, 12/24/20 13:59:00 CDT, Height, 93.182, kg, 12/24/20 13:59:00 CDT, Weight donepezil Yes = 1 tab, Jose Francisco zhang 10 mg oral 3-26 PO, Daily, l tablet 19:08: # 90 tab, Ajay n 00 1 Refill(s), Pharmacy: [id number], 149.86, cm, 12/24/20 13:59:00 CDT, Height, 93.182, kg, 12/24/20 13:59:00 CDT, Weight primidone 2021-0 Yes 50 mg = 1 Mem oria 50 mg oral 3-26 tab, PO, l tablet 19:08: Bedtime, # Jessie nn 00 90 tab, 2 Refill(s), Pharmacy: [id number], 149.86, cm, 12/24/20 13:59:00 CDT, Height, 93.182, kg, 12/24/20 13:59:00 CDT, Weight donepezil 2021-0 Yes = 1 tab, Jose Francisco zhang 10 mg oral 3-26 PO, Daily, l tablet 19:08: # 90 tab, Ajay n 00 1 Refill(s), Pharmacy: [id number], 149.86, cm, 12/24/20 13:59:00 CDT, Height, 93.182, kg, 12/24/20 13:59:00 CDT, Weight primidone 2021-0 Yes 50 mg = 1 Mem oria 50 mg oral 3-26 tab, PO, l tablet 19:08: Bedtime, # Jessie nn 00 90 tab, 2 Refill(s), Pharmacy: [id number], 149.86, cm, 12/24/20 13:59:00 CDT, Height, 93.182, kg, 12/24/20 13:59:00 CDT, Weight donepezil 2021-0 Yes = 1 tab, Jose Francisco zhang 10 mg oral 3-26 PO, Daily, l tablet 19:08: # 90 tab, Ajay n 00 1 Refill(s), Pharmacy: [id number], 149.86, cm, 12/24/20 13:59:00 CDT, Height, 93.182, kg, 12/24/20 13:59:00 CDT, Weight primidone 2021-0 Yes 50 mg = 1 Mem oria 50 mg oral 3-26 tab, PO, l tablet 19:08: Bedtime, # Jessie nn 00 90 tab, 2 Refill(s), Pharmacy: [id number], 149.86, cm, 12/24/20 13:59:00 CDT, Height, 93.182, kg, 12/24/20 13:59:00 CDT, Weight donepezil 2020-0 Yes = 1 tab, Jose Francisco zhang 10 mg oral 3-26 PO, Daily, l tablet 19:08: # 90 tab, Ajay n 00 1 Refill(s), Pharmacy: [id number], 149.86, cm, 12/24/20 13:59:00 CDT, Height, 93.182, kg, 12/24/20 13:59:00 CDT, Weight primidone 0 Yes 50 mg = 1 Mem oria 50 mg oral 3-26 tab, PO, l tablet 19:08: Bedtime, # Jessie nn 00 90 tab, 2 Refill(s), Pharmacy: [facility] #[id number], 149.86, cm, 12/24/20 13:59:00 CDT, Height, 93.182, kg, 12/24/20 13:59:00 CDT, Weight Lidocaine Lidocaine 2020-0 No 10mg Com 12-09 Spirit 00:00: - [facility]I 00 [facility] Celestone Celestone 2020-0 No 6mg Com mon Soluspan Soluspan 3-11 Spirit (Betamethas (Betamethas 00:00: - CHI one) one) 00 [facility] Lidocaine Lidocaine 2020-0 No 10mg Com 12-09 Spirit 00:00: - [facility]I 00 [facility] Celestone Celestone 2020-0 No 6mg Com mon Soluspan Soluspan 3-11 Spirit (Betamethas (Betamethas 00:00: - CHI one) one) 00 [facility] Lidocaine Lidocaine 2020-0 No 10mg Com 12-09 Spirit 00:00: - [facility]I 00 [facility] Celestone Celestone 2020-0 No 6mg Com mon Soluspan Soluspan 3-11 Spirit (Betamethas (Betamethas 00:00: - CHI one) one) 00 [facility] Lidocaine Lidocaine 2020-0 No 10mg Com 12-09 Spirit 00:00: - [facility]I 00 [facility] Celestone Celestone 1-0 No 6mg Com mon Soluspan Soluspan 3-11 Spirit (Betamethas (Betamethas 00:00: - CHI one) one) 00 [facility] Lidocaine Lidocaine 1-0 No 10mg Com mon 12-09 Spirit 00:00: - [facility]I 00 [facility] Celestone Celestone 1-0 No 6mg Com mon Soluspan Soluspan 3-11 Spirit (Betamethas (Betamethas 00:00: - CHI one) one) 00 [facility] Lidocaine Lidocaine 1-0 No 10mg Com 12-09 Spirit 00:00: - [facility]I 00 [facility] Celestone Celestone 2020-0 No 6mg Com mon Soluspan Soluspan 3-11 Spirit (Betamethas (Betamethas 00:00: - CHI one) one) 00 [facility] Lidocaine Lidocaine 1-0 No 10mg Com 12-09 Spirit 00:00: - [facility]I 00 [facility] Celestone Celestone 1-0 No 6mg Com mon Soluspan Soluspan 3-11 Spirit (Betamethas (Betamethas 00:00: - CHI one) one) 00 [facility] Lovastatin 2019- No 20 mg, 1 Mem oria 2-07 tab, l 03:00: Route: PO, Drug form: TAB, Bedtime, Dosing Weight 104.545, kg, Start date: 09/05/20 21:00:00 PATTERN MARKING SUPERVISOR, 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, Stop date: 10/04/20 21:00:00 PATTERN MARKING SUPERVISOR Primidone 2019- No Notes: Memori a 2-07 (Same as: l 03:00: Mysoline) Lipitor 2019- No Notes: Memoria 2-07 (Same As: l 03:00: Lipitor) Lovastatin 2019-10 No 20 mg, 1 Mem oria 2-07 tab, l 03:00: Route: PO, Drug form: TAB, Bedtime, Dosing Weight 104.545, kg, Start date: 09/05/20 21:00:00 PATTERN MARKING SUPERVISOR, 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, Stop date: 10/04/20 21:00:00 PATTERN MARKING SUPERVISOR Primidone 2019-10 No Notes: Memori a 2-07 (Same as: l 03:00: Mysoline) Lovastatin 2019-10 No 20 mg, 1 Mem oria 2-07 tab, l 03:00: Route: PO, [place] 00 Drug form: TAB, Bedtime, Dosing Weight 104.545, kg, Start date: 09/05/20 21:00:00 PATTERN MARKING SUPERVISOR, 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, Stop date: 10/04/20 21:00:00 PATTERN MARKING SUPERVISOR Primidone 2019-10 No Notes: Memori a 2-07 (Same as: l 03:00: Mysoline) Lipitor 2019-10 No Notes: Memoria 2-07 (Same As: l 03:00: Lipitor) Lipitor 2019-10 No Notes: Memoria 2-07 (Same As: l 03:00: Lipitor) Lovastatin 2019-10 No 20 mg, 1 Mem oria 2-07 tab, l 03:00: Route: PO, [place] 00 Drug form: TAB, Bedtime, Dosing Weight 104.545, kg, Start date: 09/05/20 21:00:00 PATTERN MARKING SUPERVISOR, 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, Stop date: 10/04/20 21:00:00 PATTERN MARKING SUPERVISOR Primidone 2019-10 No Notes: Memori a 2-07 (Same as: l 03:00: Mysoline) Lipitor 2019-10 No Notes: Memoria 2-07 (Same As: l 03:00: Lipitor) Lovastatin 2019-10 No 20 mg, 1 Mem oria 2-07 tab, l 03:00: Route: PO, [place] 00 Drug form: TAB, Bedtime, Dosing Weight 104.545, kg, Start date: 09/05/20 21:00:00 PATTERN MARKING SUPERVISOR, 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, Stop date: 10/04/20 21:00:00 PATTERN MARKING SUPERVISOR Primidone 2019-10 No Notes: Memori a 2-07 [...] as: l solution 17:00: Duoneb) Ajay n Pulmicort 2019-10 No Notes: Memori a Respules [...] a 2-06 (Same as: l 15:00: Wellbutrin [place] 00 XL) "Do Not Crush" carvedilol 2019-10 [...] 104.545, kg, Daily, Start date: 09/05/20 9:00:00 PATTERN MARKING SUPERVISOR, 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, Stop date: 10/04/20 9:00:00 PATTERN MARKING SUPERVISOR gabapentin 2019-10 No Notes: Memor ia 300 MG Oral 2-06 (Same as: l Capsule 15:00: Neurontin) ropinirole 2019-10 No Notes: Memor ia 2-06 (Same as: l 15:00: Requip) Bupropion 2019-10 No Notes: Memori a 2-06 (Same as: l 15:00: Wellbutrin [place] 00 XL) "Do Not Crush" carvedilol 2019-10 [...] 104.545, kg, Daily, Start date: 09/05/20 9:00:00 PATTERN MARKING SUPERVISOR, 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, Stop date: 10/04/20 9:00:00 PATTERN MARKING SUPERVISOR gabapentin 2019-10 No Notes: Memor ia 300 [...] 104.545, kg, Daily, Start date: 09/05/20 9:00:00 PATTERN MARKING SUPERVISOR, 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, Stop date: 10/04/20 9:00:00 PATTERN MARKING SUPERVISOR gabapentin 2019-10 No Notes: Memor ia 300 MG Oral 2-06 (Same as: l Capsule 15:00: Neurontin) ropinirole 2019-10 No Notes: Memor ia 2-06 (Same as: l 15:00: Requip) Bupropion 2019-10 No Notes: Memori a 2-06 (Same as: l 15:00: Wellbutrin [place] 00 XL) "Do Not Crush" carvedilol 2019-10 [...] 104.545, kg, Daily, Start date: 09/05/20 9:00:00 PATTERN MARKING SUPERVISOR, 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, Stop date: 10/04/20 9:00:00 PATTERN MARKING SUPERVISOR gabapentin 2019-10 No Notes: Memor ia 300 MG Oral 2-06 (Same as: l Capsule 15:00: Neurontin) ropinirole 2019-10 No Notes: Memor ia 2-06 (Same as: l 15:00: Requip) Bupropion 2019-10 No Notes: Memori a 2-06 (Same as: l 15:00: Wellbutrin 00 XL) "Do Not Crush" carvedilol 2019-10 [...] 104.545, kg, Daily, Start date: 09/05/20 9:00:00 PATTERN MARKING SUPERVISOR, 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, Stop date: 10/04/20 9:00:00 PATTERN MARKING SUPERVISOR gabapentin 2019- No Notes: Memor ia 300 MG Oral 2-06 (Same as: l Capsule 15:00: Neurontin) Herm bernie ropinirole 2019-10 No Notes: Memor ia 2-06 (Same as: l 15:00: Requip) Raul 00 Streptococc 2019- No Notes: Jose Francisco zhang us 2-06 Shake well l pneumoniae 14:12: prior to Her ivory serotype 1 45 use (Same capsular as: antigen Prevnar diphtheria 13) [id number] protein conjugate vaccine / Streptococc us pneumoniae serotype 14 capsular antigen diphtheria [id number] protein conjugate vaccine / Streptococc us pneumoniae serotype 18C capsular antigen d Streptococc 2019-10 No Notes: Jose Francisco zhang us 2-06 Shake well l pneumoniae 14:12: prior to Her ivory serotype 1 45 use (Same capsular as: antigen Prevnar diphtheria 13) [id number] protein conjugate vaccine / Streptococc us pneumoniae serotype 14 capsular antigen diphtheria [id number] protein conjugate vaccine / Streptococc us pneumoniae serotype 18C capsular antigen d Streptococc 2019- No Notes: Jose Francisco zhang us 2-06 Shake well l pneumoniae 14:12: prior to Her ivory serotype 1 45 use (Same capsular as: antigen Prevnar diphtheria 13) [id number] protein conjugate vaccine / Streptococc us pneumoniae serotype 14 capsular antigen diphtheria [id number] protein conjugate vaccine / Streptococc us pneumoniae serotype 18C capsular antigen d Streptococc 2020- No Notes: Jose Francisco zhang us 2-06 Shake well l pneumoniae 14:12: prior to Her ivory serotype 1 45 use (Same capsular as: antigen Prevnar diphtheria 13) [id number] protein conjugate vaccine / Streptococc us pneumoniae serotype 14 capsular antigen diphtheria [id number] protein conjugate vaccine / Streptococc us pneumoniae serotype 18C capsular antigen d Streptococc 2020- No Notes: Jose Francisco zhang us 2-06 Shake well l pneumoniae 14:12: prior to Her ivory serotype 1 45 use (Same capsular as: antigen Prevnar diphtheria 13) [id number] protein conjugate vaccine / Streptococc us pneumoniae serotype 14 capsular antigen diphtheria [id number] protein conjugate vaccine / Streptococc us pneumoniae serotype 18C capsular antigen d Thyroxine 2019-10 No Notes: Memori a 2-06 Take 1 l 14:00: hour Raul 00 before or 2 hours after meal; Enteral feeds may interefere with the absorption of this medication . (Same as:Levothr oid) Thyroxine 2019-10 No Notes: Memori a 2-06 Take 1 l 14:00: hour [place] 00 before or 2 hours after meal; [...] a 2-06 Take 1 l 14:00: hour [place] 00 before or 2 hours after meal; Enteral feeds may interefere with the absorption of this medication . (Same as:Levothr oid) Iohexol 2019-1 No 100 mL, Memoria 2 Route: l 12:39: IVP, Drug Raul 00 Form: SOLN, Dosing Weight 104.545, kg, ONCALL, STAT, Start date: 09/05/20 6:39:00 PATTERN MARKING SUPERVISOR, Duration: 1 doses or times, Dose = 2.2ml/kg, Max dose = 100ml -- "To be infused by Radiology Staff ONLY" Iohexol 2020-1 No 100 mL, Memoria 2-06 Route: l 12:39: IVP, Drug Raul 00 Form: SOLN, Dosing Weight 104.545, kg, ONCALL, STAT, Start date: 09/05/20 6:39:00 PATTERN MARKING SUPERVISOR, Duration: 1 doses or times, Dose = 2.2ml/kg, Max dose = 100ml -- "To be infused by Radiology Staff ONLY" Iohexol 2020-1 No 100 mL, Memoria 2-06 Route: l 12:39: IVP, Drug Raul 00 Form: SOLN, Dosing Weight 104.545, kg, ONCALL, STAT, Start date: 09/05/20 6:39:00 PATTERN MARKING SUPERVISOR, Duration: 1 doses or times, Dose = 2.2ml/kg, Max dose = 100ml -- "To be infused by Radiology Staff ONLY" Iohexol 2019-10 No 100 mL, Memoria 2-06 Route: l 12:39: IVP, Drug Raul Form: SOLN, Dosing Weight 104.545, kg, ONCALL, STAT, Start date: 09/05/20 6:39:00 PATTERN MARKING SUPERVISOR, Duration: 1 doses or times, Dose = 2.2ml/kg, Max dose = 100ml -- "To be infused by Radiology Staff ONLY" Iohexol 2019-10 No 100 mL, Memoria 2-06 Route: l 12:39: IVP, Drug Raul Form: SOLN, Dosing Weight 104.545, kg, ONCALL, STAT, Start date: 09/05/20 6:39:00 PATTERN MARKING SUPERVISOR, Duration: 1 doses or times, Dose = 2.2ml/kg, Max dose = 100ml -- "To be infused by Radiology Staff ONLY" Acetaminoph 2019-10 No Notes: Max Memoria en 2-06 acetaminop l 07:00: hen 4000 Raul 00 mg/day (4 gm/day). (Same as: Tylenol Extra Strength) Acetaminoph 2019-10 No Notes: Max Memoria en 2-06 acetaminop l 07:00: hen 4000 [place] 00 mg/day (4 gm/day). (Same as: Tylenol Extra Strength) Acetaminoph 2019-10 No Notes: Max Memoria en 2-06 acetaminop l 07:00: hen 4000 [place] 00 mg/day (4 gm/day). (Same as: Tylenol [...] l oral tablet 06:48: BID, # 180 [place] 00 tab, 1 Refill(s) amLODIPine 2019-10 Yes 10 mg = 1 Me moria 10 mg oral 2-06 tab, PO, l tablet 06:48: Daily, # [place] 00 90 tab, 0 Refill(s) escitalopra 2019-10 [...] l oral tablet 06:48: BID, # 180 [place] 00 tab, 1 Refill(s) Oxycodone 2019-10 No Notes: Memori a [...] l oral tablet 06:48: BID, # 180 [place] 00 tab, 1 Refill(s) amLODIPine 2019-10 Yes 10 mg = 1 Me moria 10 mg oral 2-06 tab, PO, l tablet 06:48: Daily, # [place] 00 90 tab, 0 Refill(s) escitalopra 2019-10 [...] # Raul 00 60 tab, 1 Refill(s) amLODIPine 2019-10 Yes 10 mg = 1 Me moria 10 mg oral 2-06 tab, PO, l tablet 06:48: Daily, # Raul 00 90 tab, 0 Refill(s) Trelegy 2019-10 Yes = 1 Memoria Ellipta 2-06 inhalation l inhalation 06:48: , PO, Ajay n powder 00 Daily, PRN COPD, # 1 ea, 0 Refill(s) escitalopra 2019-10 Yes 20 mg [...] l oral tablet 06:48: BID, # 180 [place] 00 tab, 1 Refill(s) amLODIPine 2019-10 Yes 10 mg = 1 Me moria 10 mg oral 2-06 tab, PO, l tablet 06:48: Daily, # [place] 00 90 tab, 0 Refill(s) escitalopra 2019-10 [...] tab, PO, l Tablet 06:48: Daily, # [place] 00 60 tab, 1 Refill(s) Trelegy 2019-10 [...] Blood Glucose Results, Start date: 09/05/20 0:47:00 PATTERN MARKING SUPERVISOR, 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, Stop date: 10/05/20 0:46:00 PATTERN MARKING SUPERVISOR, 0 Glucagon 2019-10 No 1 mg, Memoria 2-06 Route: IM, l 06:47: Drug form: PDR/INJ, PRN, Dosing Weight 104.545, kg, PRN Blood Glucose Results, Start date: 09/05/20 0:47:00 PATTERN MARKING SUPERVISOR, 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, Stop date: 10/05/20 0:46:00 PATTERN MARKING SUPERVISOR, 0 sennosides, 2019-10 No Notes: Jose Francisco zhang SENIOR CARE 2-06 (Same as: l 06:47: Senokot) POLYETHYLEN [...] Total Volume: 1,000, Start date: 09/05/20 0:47:00 PATTERN MARKING SUPERVISOR, Duration: 1 day, Stop date: 09/06/20 0:46:00 PATTERN MARKING SUPERVISOR, 1.97, m2, 0 Tums 2019-10 No Notes: [...] 0.65% 2-06 (Same as: l solution 06:47: [place], Deep Sea Nasal [place]). Tessalon 2019-10 No Notes: Memoria Perles - (Same As: l 06:47: Tessalon Perles) "Do Not Crush" Guaifenesin 2019-10 No Notes: Jose Francisco zhang 2-06 (Same as: l 06:47: Organidin [place] 00 NR) Blistex 2019-10 No Notes: Memoria topical 11-06 Same as: l ointment 06:47: Blistex Ajay n 00 Albuterol 2019-10 No Notes: SEE Me moria 0.83 MG/ML 06 RT l Inhalant 06:47: DOCUMENTAT Her ivory Solution 00 ION (Same as: Proventil) Dextrose 2019-10 No 12.5 gm, Memor ia 50% Syringe 11-06 25 mL, l (D50W) 06:47: Route: IVP, Drug Form: INJ, Dosing Weight 104.545, kg, PRN, PRN Blood Glucose Results, Start date: 09/05/20 0:47:00 PATTERN MARKING SUPERVISOR, 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, Stop date: 10/05/20 0:46:00 PATTERN MARKING SUPERVISOR, 0 Glucagon 2019-10 No 1 mg, Memoria 11-06 Route: IM, l 06:47: Drug form: PDR/INJ, PRN, Dosing Weight 104.545, kg, PRN Blood Glucose Results, Start date: 09/05/20 0:47:00 PATTERN MARKING SUPERVISOR, 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, Stop date: 10/05/20 0:46:00 PATTERN MARKING SUPERVISOR, 0 sennosides, 2019-10 No Notes: Jose Francisco zhang SENIOR CARE 2- (Same as: l 06:47: Senokot) POLYETHYLEN 2019-10 No Notes: Jose Francisco zhang E GLYCOL 2-06 Dissolve l 3350 06:47: in 8 oz of water or juice. (Same as: Miralax) Ondansetron 2019-10 No Notes: Jose Francisco zhang 2-06 (Same as: l 06:47: Zofran) MEDICATION WASTE Product Size: 4 mg Product Wasted: ___ mg Melatonin 2019-10 No Notes: Memori a - (Same as: l 06:47: Melatonin) LR IV 1,000 2019-10 No 1,000 mL, M patria mL 2-06 Rate: 100 l 06:47: ml/hr, Infuse over: 10 hr, Route: IV, Dosing Weight 104.545 kg, Total Volume: 1,000, Start date: 09/05/20 0:47:00 PATTERN MARKING SUPERVISOR, Duration: 1 day, Stop date: 09/06/20 0:46:00 PATTERN MARKING SUPERVISOR, 1.97, m2, 0 Tums 2019-10 No Notes: [...] 0.65% 2- (Same as: l solution 06:47: Walker, [place] 00 Deep Sea Nasal [place]). Tessalon 2019-10 No Notes: Memoria Perles 2-06 (Same As: l 06:47: Tessalon Perles) "Do Not Crush" Guaifenesin 2019-10 No Notes: Jose Francisco zhang 2-06 (Same as: l 06:47: Organidin [place] 00 NR) Blistex 2019-10 No Notes: Memoria [...] Blood Glucose Results, Start date: 09/05/20 0:47:00 PATTERN MARKING SUPERVISOR, 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, Stop date: 10/05/20 0:46:00 PATTERN MARKING SUPERVISOR, 0 Glucagon 2019-10 No 1 mg, Memoria 2-06 Route: IM, l 06:47: Drug form: [place] 00 PDR/INJ, PRN, Dosing Weight 104.545, kg, PRN Blood Glucose Results, Start date: 09/05/20 0:47:00 PATTERN MARKING SUPERVISOR, 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, Stop date: 10/05/20 0:46:00 PATTERN MARKING SUPERVISOR, 0 sennosides, 2019-10 No Notes: Jose Francisco zhang SENIOR CARE 2-06 (Same as: l 06:47: Senokot) POLYETHYLEN [...] Total Volume: 1,000, Start date: 09/05/20 0:47:00 PATTERN MARKING SUPERVISOR, Duration: 1 day, Stop date: 09/06/20 0:46:00 PATTERN MARKING SUPERVISOR, 1.97, m2, 0 Tums 2019-10 No Notes: [...] 0.65% 2- (Same as: l solution 06:47: Walker, [place] 00 Deep Sea Nasal [place]). Tessalon 2019-10 No Notes: Memoria Perles - (Same As: l 06:47: Tessalon Perles) "Do Not Crush" Guaifenesin 2019-10 No Notes: Jose Francisco zhang 2-06 (Same as: l 06:47: Organidin [place] 00 NR) Blistex 2019-10 No Notes: Memoria topical 11-06 Same as: l ointment 06:47: Blistex Ajay n 00 Albuterol 2019-10 No Notes: SEE Me moria 0.83 MG/ML 2- RT l Inhalant 06:47: DOCUMENTAT Her ivory Solution 00 ION (Same as: Proventil) Dextrose 2019-10 No 12.5 gm, Memor ia 50% Syringe 11-06 25 mL, l (D50W) 06:47: Route: IVP, Drug Form: INJ, Dosing Weight 104.545, kg, PRN, PRN Blood Glucose Results, Start date: 09/05/20 0:47:00 PATTERN MARKING SUPERVISOR, 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, Stop date: 10/05/20 0:46:00 PATTERN MARKING SUPERVISOR, 0 Glucagon 2019-10 No 1 mg, Memoria 11-06 Route: IM, l 06:47: Drug form: Raul 00 PDR/INJ, PRN, Dosing Weight 104.545, kg, PRN Blood Glucose Results, Start date: 09/05/20 0:47:00 PATTERN MARKING SUPERVISOR, 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, Stop date: 10/05/20 0:46:00 PATTERN MARKING SUPERVISOR, 0 sennosides, 2019-10 No Notes: Jose Francisco zhang SENIOR CARE 2- (Same as: l 06:47: Senokot) POLYETHYLEN [...] a 2-06 (Same as: l 06:47: Melatonin) [place] 00 LR IV 1,000 2019-10 No 1,000 mL, Keesha emoria mL 2-06 Rate: 100 l 06:47: ml/hr, Infuse over: 10 hr, Route: IV, Dosing Weight 104.545 kg, Total Volume: 1,000, Start date: 09/05/20 0:47:00 PATTERN MARKING SUPERVISOR, Duration: 1 day, Stop date: 09/06/20 0:46:00 PATTERN MARKING SUPERVISOR, 1.97, m2, 0 Tums 2019-10 No Notes: Memoria 2-06 (Same As: l 06:47: Tums) Raul 00 Calcium Carbonate 500 mg = 200 mg elemental calcium Dose = mg calcium carbonate ( mg elemental calcium) Simethicone 2019-10 No Notes: Jose Francisco zhang 2-06 (Same as: l 06:47: Mylicon) [place] 00 Lubricant 2019-10 No Notes: Memori a Eye Drops 2-06 (Same as: l 06:47: Aquasite) Raul 00 Nasal Moist 2019-10 No Notes: Jose Francisco zhang 0.65% 2-06 (Same as: l solution 06:47: [place], Raul Deep Sea Nasal [place]). Tessalon 2019-10 No Notes: Memoria Perles 2-06 (Same As: l 06:47: Tessalon Raul Perles) "Do Not Crush" Guaifenesin 2019-10 No [...] zhang 2-06 (Same as: l 06:47: Organidin [place] 00 NR) Blistex 2019-10 No Notes: Memoria [...] Blood Glucose Results, Start date: 09/05/20 0:47:00 PATTERN MARKING SUPERVISOR, 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, Stop date: 10/05/20 0:46:00 PATTERN MARKING SUPERVISOR, 0 Glucagon 2019-10 No 1 mg, Memoria 11-06 Route: IM, l 06:47: Drug form: PDR/INJ, PRN, Dosing Weight 104.545, kg, PRN Blood Glucose Results, Start date: 09/05/20 0:47:00 PATTERN MARKING SUPERVISOR, 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, Stop date: 10/05/20 0:46:00 PATTERN MARKING SUPERVISOR, 0 sennosides, 2019-10 No Notes: Jose Francisco zhang SENIOR CARE 2-06 (Same as: l 06:47: Senokot) POLYETHYLEN [...] Total Volume: 1,000, Start date: 09/05/20 0:47:00 PATTERN MARKING SUPERVISOR, Duration: 1 day, Stop date: 09/06/20 0:46:00 PATTERN MARKING SUPERVISOR, 1.97, m2, 0 Tums 2019-10 No Notes: [...] 0.65% 2-06 (Same as: l solution 06:47: Walker, [place] 00 Deep Sea Nasal [place]). Hydralazine 2019-10 No Notes: Jose Francisco zhang 2-06 (Same as: l 06:45: Apresoline [place] ) Push over 5 minutes Hydralazine 2019-10 No Notes: Jose Francisco zhang 2-06 (Same as: l 06:45: Apresoline [place] ) Push over 5 minutes Hydralazine 2019-10 No Notes: Jose Francisco zhang 2-06 (Same as: l 06:45: Apresoline [place] ) Push over 5 minutes Hydralazine 2019-10 No Notes: Jose Francisco zhang 2-06 (Same as: l 06:45: Apresoline Raul ) Push over 5 minutes Hydralazine 2019-10 No Notes: Jose Francisco zhang 2-06 (Same as: l 06:45: Apresoline Raul 00 ) Push over 5 minutes Acetaminoph 2019-10 No 1 tab, Jose Francisco zhang en 325 MG / 2-06 Route: PO, l Hydrocodone 04:07: Drug Form: Raul Bitartrate 00 TAB, 5 MG Oral Dosing Tablet Weight 104.545, kg, ONCE, STAT, Start date: 09/04/20 22:07:00 PATTERN MARKING SUPERVISOR, Stop date: 09/04/20 22:07:00 PATTERN MARKING SUPERVISOR Acetaminoph 2019-10 No 1 tab, Jose Francisco zhang en 325 MG / 2-06 Route: PO, l Hydrocodone 04:07: Drug Form: [place] Bitartrate 00 TAB, 5 MG Oral Dosing Tablet Weight 104.545, kg, ONCE, STAT, Start date: 09/04/20 22:07:00 PATTERN MARKING SUPERVISOR, Stop date: 09/04/20 22:07:00 PATTERN MARKING SUPERVISOR Acetaminoph 2020-1 No 1 tab, Jose Francisco zhang en 325 MG / 2-06 Route: PO, l Hydrocodone 04:07: Drug Form: [place] Bitartrate 00 TAB, 5 MG Oral Dosing Tablet Weight 104.545, kg, ONCE, STAT, Start date: 09/04/20 22:07:00 PATTERN MARKING SUPERVISOR, Stop date: 09/04/20 22:07:00 PATTERN MARKING SUPERVISOR Acetaminoph 2019-1 No 1 tab, Jose Francisco zhang en 325 MG / 2-06 Route: PO, l Hydrocodone 04:07: Drug Form: [place] Bitartrate 00 TAB, 5 MG Oral Dosing Tablet Weight 104.545, kg, ONCE, STAT, Start date: 09/04/20 22:07:00 PATTERN MARKING SUPERVISOR, Stop date: 09/04/20 22:07:00 PATTERN MARKING SUPERVISOR Acetaminoph 2019- No 1 tab, Jose Francisco zhang en 325 MG / 11-06 Route: PO, l Hydrocodone 04:07: Drug Form: [place] Bitartrate 00 TAB, 5 MG Oral Dosing Tablet Weight 104.545, kg, ONCE, STAT, Start date: 09/04/20 22:07:00 PATTERN MARKING SUPERVISOR, Stop date: 09/04/20 22:07:00 PATTERN MARKING SUPERVISOR HYDROcodone 2020- No 1{tbl} 1 tablet, Univers [...] te-atropine - tablet by ity of (LOMOTIL) 17:14: mouth [place] 2.5-0.025 43 every 6 Medical mg tablet (six) Branch hours as needed. ALBUTEROL 2020-0 [facility]-28 ity of INHALE 17:14: [place] [id number] [facility] Branch misoprostol 0 2020- No 200ug Take 200 Univers (CYTOTEC) [...] rs SULFATE 06-28 ity of INHALE 12:14: [place] [address] Medical Branch acetaminoph 2020-0 Yes 4647 1{tbl} Take 1 Un martha en-codeine - tablet by ity of 300-30 mg 00:00: [...] Jessie nn 00 tab, 3 Refill(s), Pharmacy: [id number], 149.86, cm, 05/25/20 13:41:00 CDT, Height, 95.455, kg, 05/25/20 13:41:00 CDT, Weight primidone 2020-0 Yes 50 mg = 1 Mem oria 50 mg oral 8-25 tab, PO, l tablet 19:03: BID, # 180 [place] nn 00 tab, 3 Refill(s), Pharmacy: [id number], 149.86, cm, 05/25/20 13:41:00 CDT, Height, 95.455, kg, 05/25/20 13:41:00 CDT, Weight primidone 2020-0 Yes 50 mg = 1 Mem oria 50 mg oral 8-25 tab, PO, l tablet 19:03: BID, # 180 [place] nn 00 tab, 3 Refill(s), Pharmacy: [id number], 149.86, cm, 05/25/20 13:41:00 CDT, Height, 95.455, kg, 05/25/20 13:41:00 CDT, Weight primidone 2020-0 Yes 50 mg = 1 Mem oria 50 mg oral 8-25 tab, PO, l tablet 19:03: BID, # 180 [place] 00 tab, 3 Refill(s), Pharmacy: [id number], 149.86, cm, 05/25/20 13:41:00 CDT, Height, 95.455, kg, 05/25/20 13:41:00 CDT, Weight primidone 2020-0 Yes 50 mg = 1 Mem oria 50 mg oral 8-25 tab, PO, l tablet 19:03: BID, # 180 [place] 00 tab, 3 Refill(s), Pharmacy: [id number], 149.86, cm, 05/25/20 13:41:00 CDT, Height, 95.455, kg, 05/25/20 13:41:00 CDT, Weight primidone 2020-0 No 50 mg = 1 Mem oria 50 mg oral 6-25 tab, PO, l tablet 13:48: Bedtime, # Jessie nn 00 90 tab, 3 Refill(s), Pharmacy: [id number], 149.86, cm, 03/24/20 9:12:00 CDT, Height, 90.909, kg, 03/24/20 9:12:00 CDT, Weight primidone 2020-0 No 50 mg = 1 Mem oria 50 mg oral 6-25 tab, PO, l tablet 13:48: Bedtime, # Jessie nn 00 90 tab, 3 Refill(s), Pharmacy: [id number], 149.86, cm, 03/24/20 9:12:00 CDT, Height, 90.909, kg, 03/24/20 9:12:00 CDT, Weight primidone 2020-0 No 50 mg = 1 Mem oria 50 mg oral 6-25 tab, PO, l tablet 13:48: Bedtime, # Jessie nn 00 90 tab, 3 Refill(s), Pharmacy: [id number], 149.86, cm, 03/24/20 9:12:00 CDT, Height, 90.909, kg, 03/24/20 9:12:00 CDT, Weight primidone 2020-0 No 50 mg = 1 Mem oria 50 mg oral 6-25 tab, PO, l tablet 13:48: Bedtime, # Jessie nn 00 90 tab, 3 Refill(s), Pharmacy: [id number], 149.86, cm, 03/24/20 9:12:00 CDT, Height, 90.909, kg, 03/24/20 9:12:00 CDT, Weight primidone 2020-0 No 50 mg = 1 Mem oria 50 mg oral 6-25 tab, PO, l tablet 13:48: Bedtime, # Jessie nn 00 90 tab, 3 Refill(s), Pharmacy: [id number], 149.86, cm, 03/24/20 9:12:00 CDT, Height, 90.909, kg, 03/24/20 9:12:00 CDT, Weight donepezil 2020-0 Yes 10 mg = 1 Mem oria 10 mg oral 6-24 tab, PO, l tablet 14:32: Daily, # [place] 00 30 tab, 3 Refill(s), Pharmacy: [id number], 149.86, cm, 03/24/20 9:12:00 CDT, Height, 90.909, kg, 03/24/20 9:12:00 CDT, Weight primidone 2020-0 No 50 mg = 1 Mem oria 50 mg oral 6-24 tab, PO, l tablet 14:32: Bedtime, X Jessie nn 00 30 day, # 30 tab, 3 Refill(s), Pharmacy: [id number], 149.86, cm, 03/24/20 9:12:00 CDT, Height, 90.909, kg, 03/24/20 9:12:00 CDT, Weight donepezil 2020-0 Yes 10 mg = 1 Mem oria 10 mg oral 6-24 tab, PO, l tablet 14:32: Daily, # [place] 00 30 tab, 3 Refill(s), Pharmacy: [id number], 149.86, cm, 03/24/20 9:12:00 CDT, Height, 90.909, kg, 03/24/20 9:12:00 CDT, Weight primidone 2020-0 No 50 mg = 1 Mem oria 50 mg oral 6-24 tab, PO, l tablet 14:32: Bedtime, X Jessie nn 30 day, # 30 tab, 3 Refill(s), Pharmacy: [id number], 149.86, cm, 03/24/20 9:12:00 CDT, Height, 90.909, kg, 03/24/20 9:12:00 CDT, Weight donepezil 2020-0 Yes 10 mg = 1 Mem oria 10 mg oral 6-24 tab, PO, l tablet 14:32: Daily, # [place] 00 30 tab, 3 Refill(s), Pharmacy: [id number], 149.86, cm, 03/24/20 9:12:00 CDT, Height, 90.909, kg, 03/24/20 9:12:00 CDT, Weight primidone 2020-0 No 50 mg = 1 Mem oria 50 mg oral 6-24 tab, PO, l tablet 14:32: Bedtime, X Jessie nn 30 day, # 30 tab, 3 Refill(s), Pharmacy: [id number], 149.86, cm, 03/24/20 9:12:00 CDT, Height, 90.909, kg, 03/24/20 9:12:00 CDT, Weight donepezil 2020-0 Yes 10 mg = 1 Mem oria 10 mg oral 6-24 tab, PO, l tablet 14:32: Daily, # [place] 00 30 tab, 3 Refill(s), Pharmacy: [id number], 149.86, cm, 03/24/20 9:12:00 CDT, Height, 90.909, kg, 03/24/20 9:12:00 CDT, Weight primidone 2019-0 No 50 mg = 1 Mem oria 50 mg oral 6-24 tab, PO, l tablet 14:32: Bedtime, X Jessie nn 30 day, # 30 tab, 3 Refill(s), Pharmacy: [facility] #[id number], 149.86, cm, 03/24/20 9:12:00 CDT, Height, 90.909, kg, 03/24/20 9:12:00 CDT, Weight donepezil Yes 10 mg = 1 Mem oria 10 mg oral 6-24 tab, PO, l tablet 14:32: Daily, # [place] 00 30 tab, 3 Refill(s), Pharmacy: [facility] #[id number], 149.86, cm, 03/24/20 9:12:00 CDT, Height, 90.909, kg, 03/24/20 9:12:00 CDT, Weight primidone No 50 mg = 1 Mem oria 50 mg oral 6-24 tab, PO, l tablet 14:32: Bedtime, X Jessie nn day, # 30 tab, 3 Refill(s), Pharmacy: [facility] #[id number], 149.86, cm, 03/24/20 9:12:00 CDT, Height, 90.909, kg, 03/24/20 9:12:00 CDT, Weight sucralfate 2019-0 Yes [id number] .[id number][in_ Apply 0.25 Univers malate, 5- us] Inches as ity of polymerized 00:00: directed 4 [place] 1 gram/10 00 (four) Medical mL Pste times Branch daily as needed for Pain (scale 1-3). sucralfate 2019-0 2020- No [id number] .[id number][in_ Apply 0.25 Univers malate, 5-21 06-28 us] Inches as ity of polymerized 00:00: 00:00 directed 4 [place] 1 gram/10 00 :00 (four) Medical mL [...] 7-26 MISC, l 21:45: Daily, # 1 [place] 00 ea, 0 Refill(s) [place] 2019-0 Yes 1 ea, Memoria 7-26 MISC, l 21:45: Daily, # 1 [place] 00 ea, 0 Refill(s) [place] 2018-0 Yes 1 ea, Memoria 7-26 MISC, l 21:45: Daily, # 1 [place] 00 ea, 0 Refill(s) [place] 2019- Yes 1 ea, Memoria [...] 00 30 tab, 3 chewable Refill(s), Pharmacy: [id number] Adult 2019-0 Yes 81 mg = 1 Memoria Aspirin 81 6-21 tab, CHEW, l mg oral 20:18: Daily, # Ajay n tablet, 00 30 tab, 3 chewable Refill(s), Pharmacy: [facility] #[id number] Adult 2019-0 Yes 81 mg = 1 Memoria Aspirin 81 6-21 tab, CHEW, l mg oral 20:18: Daily, # Ajay n tablet, 00 30 tab, 3 chewable Refill(s), Pharmacy: [facility] #[id number] Adult 2019-0 Yes 81 mg = 1 Memoria Aspirin 81 6-21 tab, CHEW, l mg oral 20:18: Daily, # Ajay n tablet, 00 30 tab, 3 chewable Refill(s), Pharmacy: [facility] #[id number] Adult 2019-0 Yes 81 mg = 1 Memoria Aspirin 81 6-21 tab, CHEW, l mg oral 20:18: Daily, # Ajay n tablet, 00 30 tab, 3 chewable Refill(s), Pharmacy: [facility] #[id number] levothyroxi 2018-0 Yes 125 Memori a [...] Jessie nn 00 cap, 1 Refill(s) levothyroxi 2019 Yes 125 Memori a ne 125 mcg [...] 00 30 cap, 0 capsule Refill(s) amLODIPine 2019 Yes 5 mg = 1 Mem oria [...] tab, PO, l tablet 20:06: Daily, # [place] 00 30 tab, 0 Refill(s) donepezil Yes [...] tab, PO, l tablet 20:06: BID, 0 [place] 00 Refill(s) lisinopril 2019 Yes 40 mg [...] tab, PO, l tablet 20:06: Daily, # [place] 00 30 tab, 0 Refill(s) donepezil Yes 10 mg = 1 Mem oria 10 mg oral 5-24 tab, PO, l tablet 20:06: Daily, # Raul 00 30 tab, 0 Refill(s) ProAir HFA 0 Yes 1 - 2 Memori a 5-24 puffs, PO, l 20:06: Q4H, PRN [place] 00 Wheezing / cough / shortness of [...] tab, PO, l tablet 20:06: BID, 0 [place] 00 Refill(s) lisinopril 2019 Yes 40 mg = 1 Me moria 40 mg oral 5-24 tab, PO, l tablet 20:06: Daily, # [place] 00 30 tab, 0 Refill(s) donepezil 2019 Yes 10 mg = 1 Mem oria 10 mg oral 5-24 tab, PO, l tablet 20:06: Daily, # Raul 00 30 tab, 0 Refill(s) ProAir HFA Yes 1 - 2 Memori a 5-24 puffs, PO, l 20:06: Q4H, PRN [place] 00 Wheezing / cough / shortness of [...] tab, PO, l tablet 20:06: BID, 0 [place] 00 Refill(s) lisinopril Yes 40 mg = [...] 5-24 puffs, PO, l 20:06: Q4H, PRN [place] 00 Wheezing / cough / shortness of [...] mouth ity of XL (TOPROL 17:04: daily. [place] XL) 50 mg 36 Medical 24 hr [...] mouth ity of mg tablet 17:04: daily. [place] [address] Medical Branch lovastatin Yes 20mg Take 20 mg U nivers (MEVACOR) 3-07 by mouth ity of 20 mg 17:04: daily. [place] tablet 36 Medical Branch lisinopril Yes 40mg Take 40 [...] [place] tablet 36 daily. Medical Branch metoprolol 2017-0 Yes 50mg Take 50 mg U nivers succinate 3-07 by mouth ity of XL (TOPROL 17:04: daily. [place] XL) 50 mg 36 Medical 24 hr [...] mouth ity of mg tablet 17:04: daily. [place] [address] Medical Branch lovastatin 2017-0 Yes 20mg Take [...] mouth ity of XL (TOPROL 17:04: daily. [place] XL) 50 mg 36 Medical 24 hr [...] mouth ity of mg tablet 17:04: daily. [place] [address] Medical Branch lovastatin 2017-0 Yes 20mg Take [...] mouth ity of XL (TOPROL 11:04: daily. [place] XL) 50 mg 36 Medical 24 hr Branch tablet rOPINIRole 2017-0 Yes 2mg Take 2 mg Un martha (REQUIP) 2 3-07 by mouth 2 ity of mg tablet 11:04: (two) [place] 36 times Medical daily. Branch levothyroxi 2017-0 Yes 125ug Take 125 U nivers ne 3-07 mcg by ity of (SYNTHROID) 11:04: mouth [place] 125 mcg 36 daily. Medical tablet Branch donepezil Yes 10mg Take 10 mg Un martha (ARICEPT) 3-07 by mouth ity of 10 mg 11:04: daily. [place] tablet Medical Branch amLODIPine Yes 5mg Take 5 mg Un martha (NORVASC) 5 3-07 by mouth ity of mg tablet 11:04: daily. [place] [address] Medical Branch lovastatin Yes 20mg Take 20 mg U nivers (MEVACOR) 3-07 by mouth ity of 20 mg 11:04: daily. [place] [address] Medical Branch Potassium Potassium No Potassium Chloride ER Chloride [...] Metoprolol Metoprolol No Metoprolol Succinate Succinate Succinate Advair Advair No Advair Devoted Diskus 250 Diskus 250 Diskus 250 Medical mcg-50 mcg-50 mcg-50 Group mcg/dose mcg/dose mcg/dose powder for powder for powder for inhalation inhalation inhalation INHALE 1 INHALE 1 INHALE 1 PUFF BY PUFF BY PUFF BY MOUTH TWICE MOUTH TWICE MOUTH DAILY DAILY TWICE DAILY amLODIPine amLODIPine No 1{table QD amLODIPine Besylate 5 Besylate 5 t} Besylate 5 MG MG MG Mupirocin Mupirocin No Mupirocin Calcium Calcium Calcium Spironolact Spironolact No Spironolac one one tone Escitalopra Escitalopra No 1{table QD Escitalopr m Oxalate m Oxalate t} am Oxalate 20 MG 20 MG 20 MG albuterol albuterol No albuterol Devoted sulfate HFA sulfate HFA sulfate Medical 90 90 HFA 90 Group mcg/actuati mcg/actuati mcg/actuat on aerosol on aerosol ion inhaler inhaler aerosol INHALE 2 INHALE 2 inhaler PUFFS BY PUFFS BY INHALE 2 MOUTH EVERY MOUTH EVERY PUFFS BY 6 HOURS 6 HOURS MOUTH EVERY 6 HOURS Pantoprazol Pantoprazol No Pantoprazo e Sodium e Sodium le Sodium Clindamycin Clindamycin No Clindamyci HCl HCl n HCl Cephalexin Cephalexin No Cephalexin Ciprofloxac Ciprofloxac No Ciprofloxa in HCl in HCl nataliya HCl amlodipine amlodipine No amlodipine Devoted 10 mg [...] Sulfametho azole-Trime azole-Trime xazole-Tri thoprim thoprim methoprim amlodipine amlodipine No amlodipine Devoted 5 mg tablet 5 mg tablet 5 mg M edical TAKE 1 TAKE 1 tablet Group TABLET BY TABLET BY TAKE 1 MOUTH EVERY MOUTH EVERY TABLET BY DAY DAY MOUTH EVERY DAY Carvedilol Carvedilol No Carvedilol Primidone Primidone No Primidone Levothyroxi Levothyroxi No Levothyrox ne Sodium ne Sodium ine Sodium Acetaminoph Acetaminoph No Acetaminop en-Codeine en-Codeine hen-Codein #3 #3 e #3 Breo Breo No Breo Devoted Ellipta 200 Ellipta 200 Ellipta Medical mcg-25 mcg-25 200 mcg-25 Group mcg/dose mcg/dose mcg/dose powder for powder for powder for inhalation inhalation inhalation TAKE 1 PUFF TAKE 1 PUFF TAKE 1 BY MOUTH BY MOUTH PUFF BY EVERY DAY EVERY DAY MOUTH EVERY DAY Famotidine Famotidine No Famotidine Donepezil Donepezil No 1{table QD Donepezil HCl 10 MG HCl 10 MG t} HCl 10 MG Flublok Flublok No Flublok Quadrivalen Quadrivalen Quadrivale t t nt Potassium Potassium No Potassium Chloride Chloride Chloride Neeta ER Neeta ER Neeta ER bupropion bupropion No bupropion Devoted HCl XL 150 HCl XL 150 HCl XL 150 Medical mg 24 hr mg 24 hr mg 24 hr Anand up tablet, tablet, tablet, extended extended extended release release release TAKE 1 TAKE 1 TAKE 1 TABLET BY TABLET BY TABLET BY MOUTH TWICE MOUTH TWICE MOUTH A DAY A DAY TWICE A DAY Diclofenac Diclofenac No Diclofenac Sodium 1 % Sodium 1 % Sodium 1 % rOPINIRole rOPINIRole No 1{table BID rOPINIRole HCl 2 MG HCl 2 MG t} HCl 2 MG Diclofenac Diclofenac No Diclofenac Sodium 1 % Sodium 1 % Sodium 1 % Albuterol Albuterol No Albuterol Sulfate HFA Sulfate HFA Sulfate HFA carvedilol carvedilol No carvedilol Devoted 6.25 mg [...] Lovastatin 20 MG 20 MG 20 MG donepezil donepezil No donepezil Devoted 10 mg 10 mg 10 mg Medical tablet TAKE tablet TAKE tablet Group 1 TABLET BY 1 TABLET BY TAKE 1 MOUTH EVERY MOUTH EVERY TABLET BY DAY DAY MOUTH EVERY DAY Furosemide Furosemide No Furosemide Potassium Potassium No Potassium Chloride ER Chloride ER Chloride ER Lomotil Lomotil No Lomotil Gabapentin Gabapentin No Gabapentin escitalopra escitalopra No escitalopr Devoted m 20 mg m 20 mg am 20 mg Medic al tablet TAKE tablet TAKE tablet Group 1 TABLET BY 1 TABLET BY TAKE 1 MOUTH TWICE MOUTH TWICE TABLET BY A DAY A DAY MOUTH TWICE A DAY Omeprazole Omeprazole No QD Omeprazole 40 MG 40 MG 40 MG Nitrofurant Nitrofurant No Nitrofuran oin Monohyd oin Monohyd toin Macro Macro Monohyd Macro Metoprolol Metoprolol No Metoprolol Succinate Succinate Succinate amLODIPine amLODIPine No 1{table QD amLODIPine Besylate 5 Besylate 5 t} Besylate 5 MG MG MG famotidine famotidine No famotidine Devoted 20 mg 20 mg 20 mg Medical tablet TAKE tablet TAKE tablet Group 1 TABLET BY 1 TABLET BY TAKE 1 MOUTH EVERY MOUTH EVERY TABLET BY DAY DAY MOUTH EVERY DAY Mupirocin Mupirocin No Mupirocin Calcium [...] A DAY A DAY TWICE A DAY Clindamycin Clindamycin No Clindamyci HCl HCl n HCl Cephalexin Cephalexin No Cephalexin Ciprofloxac Ciprofloxac No Ciprofloxa in HCl in HCl nataliya HCl Trelegy Trelegy No Trelegy Ellipta Ellipta Ellipta ipratropium ipratropium No ipratropiu Devoted bromide 21 bromide 21 m bromide Medical mcg (0.03 mcg (0.03 21 mcg Anand up %) nasal %) nasal (0.03 %) spray USE spray USE nasal SPRAY UP TO SPRAY UP TO spray USE 4 TIMES 4 TIMES SPRAY UP DAILY DAILY TO 4 TIMES DAILY Lisinopril Lisinopril No 1{table QD Lisinopril 40 MG 40 MG t} 40 MG Gabapentin Gabapentin No Gabapentin Sulfamethox Sulfamethox No Sulfametho azole-Trime azole-Trime xazole-Tri thoprim thoprim methoprim Carvedilol Carvedilol No Carvedilol levothyroxi levothyroxi No levothyrox Devoted ne 125 mcg ne 125 mcg ine 125 Medical tablet TAKE tablet TAKE mcg tablet Group 1 TABLET BY 1 TABLET BY TAKE 1 MOUTH EVERY MOUTH EVERY TABLET BY DAY DAY MOUTH EVERY DAY Primidone Primidone No Primidone Levothyroxi Levothyroxi No Levothyrox ne Sodium ne Sodium ine Sodium Acetaminoph Acetaminoph No Acetaminop en-Codeine en-Codeine hen-Codein #3 #3 e #3 Famotidine Famotidine No Famotidine lisinopril lisinopril No 1 Q1D lisinopril Devoted 40 mg 40 mg 40 mg Medical tablet Take tablet Take tablet Group 1 tablet 1 tablet Take 1 every day every day tablet by oral by oral every day route. route. by oral route. Donepezil Donepezil No 1{table QD Donepezil HCl 10 MG HCl 10 MG t} HCl 10 MG Flublok Flublok No Flublok Quadrivalen Quadrivalen Quadrivale t t nt Potassium Potassium No Potassium Chloride Chloride Chloride Neeta ER Neeta ER Neeta ER Diclofenac Diclofenac No Diclofenac Sodium 1 % Sodium 1 % Sodium 1 % lovastatin lovastatin No lovastatin Devoted 20 mg [...] Chlorhexid ne ne ine Gluconate Gluconate Gluconate metoprolol metoprolol No metoprolol Devoted succinate succinate succinate Medical 50 mg daily 50 mg daily 50 mg Group daily traMADol traMADol No traMADol HCl HCl HCl buPROPion buPROPion No buPROPion HCl ER (XL) HCl ER (XL) HCl ER (XL) Lovastatin Lovastatin No QD Lovastatin 20 MG 20 MG 20 MG Furosemide Furosemide No Furosemide omeprazole omeprazole No omeprazole Devoted 40 mg 40 mg 40 mg Medical capsule,del capsule,del capsule,de Group ayed ayed layed release release release TAKE 1 TAKE 1 TAKE 1 CAPSULE BY CAPSULE BY CAPSULE BY MOUTH EVERY MOUTH EVERY MOUTH DAY DAY EVERY DAY Potassium Potassium No Potassium Chloride ER Chloride ER Chloride ER Lomotil Lomotil No Lomotil Gabapentin Gabapentin No Gabapentin Omeprazole Omeprazole No QD Omeprazole 40 MG 40 MG 40 MG potassium potassium No potassium Devoted chloride ER chloride ER chloride Medical 10 mEq 10 mEq ER 10 mEq Group capsule,ext capsule,ext capsule,ex ended ended tended release release release TAKE 1 TAKE 1 TAKE 1 CAPSULE BY CAPSULE BY CAPSULE BY MOUTH EVERY MOUTH EVERY MOUTH DAY DAY EVERY DAY Nitrofurant Nitrofurant No Nitrofuran oin Monohyd oin Monohyd toin Macro Macro Monohyd Macro Metoprolol Metoprolol No Metoprolol Succinate Succinate Succinate amLODIPine amLODIPine No 1{table QD amLODIPine Besylate 5 Besylate 5 t} Besylate 5 MG MG MG primidone primidone No primidone Devoted 50 mg 50 mg 50 mg Medical tablet TAKE tablet TAKE tablet Group 1 TABLET BY 1 TABLET BY TAKE 1 MOUTH MOUTH TABLET BY EVERYDAY AT EVERYDAY AT MOUTH BEDTIME BEDTIME EVERYDAY AT BEDTIME Mupirocin Mupirocin No Mupirocin Calcium Calcium Calcium Spironolact Spironolact No Spironolac one one tone Escitalopra Escitalopra No 1{table QD Escitalopr m Oxalate m Oxalate t} am Oxalate 20 MG 20 MG 20 MG Pantoprazol Pantoprazol No Pantoprazo e Sodium e Sodium le Sodium ropinirole ropinirole No ropinirole Devoted 2 mg [...] Trelegy Trelegy No Trelegy Ellipta Ellipta Ellipta spironolact spironolact No spironolac Devoted one 25 [...] thoprim thoprim methoprim Carvedilol Carvedilol No Carvedilol topiramate topiramate No topiramate Devoted 25 mg 25 mg 25 mg Medical tablet TAKE tablet TAKE tablet Group 1 TABLET BY 1 TABLET BY TAKE 1 MOUTH AT MOUTH AT TABLET BY BEDTIME BEDTIME MOUTH AT BEDTIME Primidone Primidone No Primidone Levothyroxi Levothyroxi No Levothyrox ne Sodium ne Sodium ine Sodium Acetaminoph Acetaminoph No Acetaminop en-Codeine en-Codeine hen-Codein #3 #3 e #3 Famotidine Famotidine No Famotidine Trelegy Trelegy No Trelegy Devote d Ellipta 100 Ellipta 100 Ellipta Medical mcg-62.5 mcg-62.5 100 Group mcg-25 mcg mcg-25 mcg mcg-62.5 powder for powder for mcg-25 mcg inhalation inhalation powder for INHALE 1 INHALE 1 inhalation PUFF BY PUFF BY INHALE 1 MOUTH EVERY MOUTH EVERY PUFF BY DAY DAY MOUTH EVERY DAY Donepezil Donepezil No 1{table QD Donepezil HCl [...] Ferrous Ferrous No Ferrous Sulfate Sulfate Sulfate Chlorhexidi Chlorhexidi No Chlorhexid ne ne ine Gluconate Gluconate Gluconate Kerendia Kerendia No Kerendia Lisinopril Lisinopril No [...] Levothyrox ne Sodium ne Sodium ine Sodium Gabapentin Gabapentin No Gabapentin Diclofenac Diclofenac No [...] Spironolact Spironolact No Spironolac one one tone Vital Signs Vital Name Observation Time Observation Value Comments Source Systolic blood 2022-08-05 20:00:00 122 mm[Hg] Univer sity of pressure [facility] Diastolic blood 2022-08-05 20:00:00 77 mm[Hg] Unive rsity of [facility] Heart rate 2022-08-05 20:00:00 50 /min Universi [facility] Respiratory rate 2022-08-05 20:00:00 18 /min [facility] Oxygen saturation in 2022-08-05 20:00:00 94 /min [facility] Arterial blood by [facility] Pulse oximetry Branch Body temperature 2022-08-05 17:24:00 36 Tracee [facility] height 2022-08-05 17:24:00 149.9 cm [facility] Body weight 2022-08-05 17:24:00 83.915 kg General acute hospital BMI 2022-08-05 17:24:00 37.37 kg/m2 General acute hospital height 2022-07-27 13:15:00 59 [in_i] [facility] weight 2022-07-27 13:15:00 188.2 [lb_av] [facility] temperature 2022-07-27 13:15:00 97.6 [degF] Common [facility] bmi 2022-07-27 13:15:00 38.01 kg/m2 Common [facility] blood pressure 2022-07-27 13:15:00 125 mm[Hg] [facility] - systolic [facility] blood pressure 2022-07-27 13:15:00 82 mm[Hg] [facility] - diastolic [facility] height 2022-06-15 13:30:00 59 [in_i] Common [facility] weight 2022-06-15 13:30:00 193 [lb_av] [facility] temperature 2022-06-15 13:30:00 98.1 [degF] [facility] bmi 2022-06-15 13:30:00 38.98 kg/m2 Common S [facility] - [facility] blood pressure 2022-06-15 13:30:00 128 mm[Hg] [facility] - systolic [facility] blood pressure 2022-06-15 13:30:00 76 mm[Hg] [facility] - diastolic [facility] height 2021-10-17 14:30:00 59 [in_i] [facility] weight 2021-10-17 14:30:00 220 [lb_av] [facility] temperature 2021-10-17 14:30:00 97.9 [degF] [facility] bmi 2021-10-17 14:30:00 44.43 kg/m2 Common S [facility] blood pressure 2021-10-17 14:30:00 126 mm[Hg] [facility] - systolic [facility] blood pressure 2021-10-17 14:30:00 74 mm[Hg] [facility] - diastolic [facility] Systolic blood 2020-06-28 19:30:00 180 mm[Hg] Univer sity of [facility] Diastolic blood 2020-06-28 19:30:00 82 mm[Hg] [facility] Heart rate 2020-06-28 19:30:00 61 /min General acute hospital Respiratory rate 2020-06-28 19:13:00 17 /min [facility] Oxygen saturation in 2020-06-28 19:13:00 96 /min [facility] Arterial blood by [facility] Pulse oximetry Branch Body temperature 2020-06-28 16:54:00 36.33 Tracee [facility] weight 2020-06-28 16:54:00 95.255 kg General acute hospital BMI 2020-06-28 16:54:00 42.41 kg/m2 General acute hospital Systolic blood 2020-06-28 19:30:00 180 mm[Hg] Univer sity of [facility] Diastolic blood 2020-06-28 19:30:00 82 mm[Hg] Unive rsity of [facility] Heart rate 2020-06-28 19:30:00 61 /min General acute hospital Respiratory rate 2020-06-28 19:13:00 17 /min Univ [facility] Oxygen saturation in 2020-06-28 19:13:00 96 /min University of Arterial blood by [facility] Pulse oximetry Branch Body temperature 2020-06-28 16:54:00 36.33 Tracee [facility] Body weight 2020-06-28 16:54:00 95.255 kg [facility] BMI 2020-06-28 16:54:00 42.41 kg/m2 [facility] Systolic blood 2020-02-19 19:23:00 160 mm[Hg] Univer sity of pressure [facility] Diastolic blood 2020-02-19 19:23:00 84 mm[Hg] Unive rsity of pressure [facility] Heart rate 2020-02-19 19:23:00 63 /min [facility] Body temperature 2020-02-19 19:23:00 36.39 Tracee Univ [facility] Respiratory rate 2020-02-19 19:23:00 15 /min Univ [facility] Body height 2020-02-19 19:23:00 149.9 cm [facility] Body weight 2020-02-19 19:23:00 99.791 kg [facility] BMI 2020-02-19 19:23:00 44.43 kg/m2 [facility] Oxygen saturation in 2020-02-19 19:23:00 96 /min University of Arterial blood by [facility] Pulse oximetry Branch Systolic blood 2020-02-19 19:23:00 160 mm[Hg] Univer sity of pressure [facility] Diastolic blood 2020-02-19 19:23:00 84 mm[Hg] Unive rsity of pressure [facility] Heart rate 2020-02-19 19:23:00 63 /min [facility] Body temperature 2020-02-19 19:23:00 36.39 Tracee Univ [facility] Respiratory rate 2020-02-19 19:23:00 15 /min Univ [facility] Body height 2020-02-19 19:23:00 149.9 cm [facility] Body weight 2020-02-19 19:23:00 99.791 kg [facility] BMI 2020-02-19 19:23:00 44.43 kg/m2 [facility] Oxygen saturation in 2020-02-19 19:23:00 96 /min University of Arterial blood by [facility] Pulse oximetry Branch Systolic blood 2019-12-10 04:00:00 202 mm[Hg] Univer sity of pressure [facility] Diastolic blood 2019-12-10 04:00:00 92 mm[Hg] Unive rsity of pressure [facility] Heart rate 2019-12-10 04:00:00 75 /min [facility] Respiratory rate 2019-12-10 04:00:00 18 /min Univ [facility] Oxygen saturation in 2019-12-10 04:00:00 98 /min University of Arterial blood by [facility] Pulse oximetry Branch Body temperature 2019-12-10 02:51:13 36.39 Tracee [facility] Body height 2019-12-10 02:28:00 162.6 cm [facility] Body weight 2019-12-10 02:28:00 104.327 kg [facility] BMI 2019-12-10 02:28:00 39.48 kg/m2 [facility] Systolic blood 2019-12-10 04:00:00 202 mm[Hg] Univer sity of pressure [facility] Diastolic blood 2019-12-10 04:00:00 92 mm[Hg] Unive rsity of pressure [facility] Heart rate 2019-12-10 04:00:00 75 /min [facility] Respiratory rate 2019-12-10 04:00:00 18 /min Univ [facility] Oxygen saturation in 2019-12-10 04:00:00 98 /min University of Arterial blood by [facility] Pulse oximetry Branch Body temperature 2019-12-10 02:51:13 36.39 Tracee Univ [facility] Body height 2019-12-10 02:28:00 162.6 cm [facility] Body weight 2019-12-10 02:28:00 104.327 kg [facility] BMI 2019-12-10 02:28:00 39.48 kg/m2 [facility] Systolic (mm Hg) 2021-11-02 20:14:00 Jose Francisco [facility] [place] Diastolic (mm Hg) 2021-11-02 20:14:00 Mem o[facility] Heart Rate 2021-11-02 20:14:00 [facility] [place] Respitory Rate 2021-11-02 20:14:00 Memori al [facility] Height 2021-11-02 20:14:00 149.86 cm [facility] Weight 2021-11-02 20:14:00 [facility] BMI Calculated 2021-11-02 20:14:00 [facility] [place] Systolic (mm Hg) 2020-12-24 18:59:00 Jose Francisco rial [facility] Diastolic (mm Hg) 2020-12-24 18:59:00 Mem [facility] Heart Rate 2020-12-24 18:59:00 [facility] Respitory Rate 2020-12-24 18:59:00 Memori al [facility] Height 2020-12-24 18:59:00 149.86 cm [facility] Weight 2020-12-24 18:59:00 [facility] [place] BMI Calculated 2020-12-24 18:59:00 Memori al [facility] Systolic (mm Hg) 2020-09-06 20:47:00 Jose Francisco rial [facility] Diastolic (mm Hg) 2020-09-06 20:47:00 Mem [facility] [place] Temperature Oral (F) 2020-09-06 18:26:00 99.7 F [facility] Heart Rate 2020-09-06 18:26:00 [facility] [place] Respitory Rate 2020-09-06 18:26:00 Memori al [facility] Systolic (mm Hg) 2020-09-06 18:26:00 Jose Francisco rial [facility] Diastolic (mm Hg) 2020-09-06 18:26:00 Mem [facility] Temperature Oral (F) 2020-09-06 14:09:00 98.1 F [facility] [place] Heart Rate 2020-09-06 14:09:00 [facility] [place] Respitory Rate 2020-09-06 14:09:00 Memori [facility] [place] Systolic (mm Hg) 2020-09-06 14:09:00 Jose Francisco rial [facility] Diastolic (mm Hg) 2020-09-06 14:09:00 Mem [facility] Temperature Oral (F) 2020-09-06 10:00:00 98.1 F [facility] [place] Heart Rate 2020-09-06 10:00:00 [facility] [place] Respitory Rate 2020-09-06 10:00:00 Mem[facility] Temperature Oral (F) 2020-09-06 06:30:00 97.5 F [facility] Heart Rate 2020-09-06 06:30:00 [facility] [place] Respitory Rate 2020-09-06 06:30:00 [facility] [place] Systolic (mm Hg) 2020-09-06 06:30:00 Jose Francisco [facility] Diastolic (mm Hg) 2020-09-06 06:30:00 Mem [facility] [place] Temperature Oral (F) 2020-09-06 02:45:00 97.8 F [facility] Heart Rate 2020-09-06 02:45:00 [facility] Respitory Rate 2020-09-06 02:45:00 [facility] [place] Systolic (mm Hg) 2020-09-06 02:45:00 Jose Francisco [facility] Diastolic (mm Hg) 2020-09-06 02:45:00 Mem [facility] [place] Temperature Oral (F) 2020-09-05 22:00:00 97 F [facility] Heart Rate 2020-09-05 22:00:00 [facility] Respitory Rate 2020-09-05 22:00:00 [facility] [place] Systolic (mm Hg) 2020-09-05 22:00:00 Jose Francisco [facility] [place] Diastolic (mm Hg) 2020-09-05 22:00:00 [facility] [place] Height 2020-09-05 02:46:00 124.46 cm [facility] [place] BMI Calculated 2020-09-05 02:46:00 [facility] Weight 2020-09-05 02:46:00 [facility] [place] Systolic (mm Hg) 2020-05-25 18:41:00 Jose Francisco [facility] [place] Diastolic (mm Hg) 2020-05-25 18:41:00 Mem [facility] [place] Heart Rate 2020-05-25 18:41:00 [facility] Respitory Rate 2020-05-25 18:41:00 Mem[facility] [place] Temperature Oral (F) 2020-05-25 18:41:00 98.6 F [facility] Height 2020-05-25 18:41:00 149.86 cm [facility] Weight 2020-05-25 18:41:00 [facility] [place] BMI Calculated 2020-05-25 18:41:00 Mem[facility] [place] Systolic (mm Hg) 2020-03-24 14:12:00 Jose Francisco [facility] [place] Diastolic (mm Hg) 2020-03-24 14:12:00 Mem [facility] [place] Heart Rate 2020-03-24 14:12:00 [facility] [place] Height 2020-03-24 14:12:00 149.86 cm [facility] [place] Weight 2020-03-24 14:12:00 [facility] BMI Calculated 2020-03-24 14:12:00 Mem[facility] Systolic (mm Hg) 2019-07-24 19:29:00 Jose Francisco rial [place] Diastolic (mm Hg) 2019-07-24 19:29:00 Mem o[facility] Heart Rate 2019-07-24 19:29:00 [facility] Respitory Rate 2019-07-24 19:29:00 Memori al [facility] Height 2019-07-24 19:29:00 149.86 cm [facility] [place] Weight 2019-07-24 19:29:00 [facility] BMI Calculated 2019-07-24 19:29:00 [facility] Systolic (mm Hg) 2019-05-21 19:25:00 Jose Francisco rial [facility] Diastolic (mm Hg) 2019-05-21 19:25:00 Mem [facility] [place] Heart Rate 2019-05-21 19:25:00 [facility] [place] Respitory Rate 2019-05-21 19:25:00 Memori al [facility] Height 2019-05-21 19:25:00 149.86 cm [facility] [place] Weight 2019-05-21 19:25:00 [facility] [place] BMI Calculated 2019-05-21 19:25:00 Memori [facility] [place] Height 2019-03-21 19:45:00 147.32 cm [facility] Weight 2019-03-21 19:45:00 [facility] BMI Calculated 2019-03-21 19:45:00 Memori al [facility] Respitory Rate 2019-03-21 19:45:00 Memori al [facility] Heart Rate 2019-03-21 19:45:00 [facility] [place] Systolic (mm Hg) 2019-03-21 19:45:00 Jose Francisco [facility] [place] Diastolic (mm Hg) 2019-03-21 19:45:00 Mem [facility] [place] Height 2019-02-21 20:01:00 149.86 cm Nancy Carter Weight 2019-02-21 20:01:00 Nancy Carter BMI Calculated 2019-02-21 20:01:00 Carlotta Samano Respitory Rate 2019-02-21 20:01:00 Carlotta Samano Heart Rate 2019-02-21 20:01:00 Nancy Carter Systolic (mm Hg) 2019-02-21 20:01:00 Jose Francisco Carter Diastolic (mm Hg) 2019-02-21 20:01:00 Chao Carter Procedures Procedure Date / Time Performed Performing Clinician Sourc e XR CHEST 1 VW 2022-08-05 17:51:10 Carly Sinclair [facility] TROPONIN I 2022-08-05 17:31:00 Carly Sinclair [facility] COMP. METABOLIC PANEL 2022-08-05 17:31:00 Carly Sinclair [facility] ([id number] CBC WITH DIFF 2022-08-05 17:31:00 Carly Sinclair [facility] RAPID INFLUENZA A/B 2022-08-05 17:31:00 Carly Sinclair [facility] N-TERMINAL PRO-BNP 2022-08-05 17:31:00 Carly Sinclair [facility] acute [facility] COVID-19 (ID NOW 2022-08-05 17:31:00 Carly Sinclair [facility] RAPID TESTING) [facility] CONSENT/REFUSAL FOR 2022-08-05 17:11:04 [facility] TREATMENT XR FOREARM 2 VW RIGHT 2020-06-28 17:49:01 Sariah Miller [facility] XR SHOULDER 2+ VW 2020-06-28 17:49:01 Sariah Miller [facility] CONSENT/REFUSAL FOR 2020-02-19 18:58:01 [facility] TREATMENT XR TIBIA FIBULA 2 VW 2019-12-10 03:20:47 Timi Aguirre [facility] Encounters Start End Encounter Admission Attending Care Care Encounter Source Date/Time Date/Time Type Type Clinicians Facility Department ID 2022-11-13 Outpatient STLMLC STLMLC [id number] Common 13:04:00 [id number] [facility] 2022-11-09 Outpatient STLMLC STLMLC [id number] Common 12:35:00 [id number] [facility] 2022-07-26 Outpatient STLMLC STLMLC [id number] Common 16:10:00 [id number] [facility] 2022-06-16 Outpatient STLMLC STLMLC [id number] Common 09:53:02 [id number] [facility] 2021-10-26 Outpatient STLMLC STLMLC [id number] Common 13:00:46 [id number] [facility] 2021-10-26 Outpatient STLMLC STLMLC [id number] Common 12:25:20 [id number] [facility] 2021-10-26 Outpatient STLMLC STLMLC [id number] Common 12:16:59 [id number] [facility] 2021-10-05 Inpatient EL Pepper, HCAWU ADMI [id number] [facility] 11:00:[address] [facility] 2021-07-29 Emergency [facility] [id number] [facility] [id number] Univers 21:53:33 [facility] 2022-11-01 2022-11-01 (TEL) STLMLC STLMLC [id number] Co mmon 00:00:00 00:00:00 [facility] 2022-09-29 2022-09-29 Inpatient EL Pepper, HCAWU SUGL [id number] [facility] 11:00:00 11:00:[address] [facility] 2022-09-13 2022-09-13 ESTRELLA Dinh [id number]. [id number]. CLAC [id number] [facility]oted 20:30:00 21:00:00 Revisit: Valentín [id number] Medical Gap [id number] Closure & [id number] Clinical Check-in 2022-09-05 2022-09-05 (TEL) STLMLC STLMLC [id number] Co mmon 00:00:00 00:00:00 [facility] - [facility] 2022-08-05 2022-08-05 [facility] [id number] Univers 12:20:00 15:34:00 CARLY dominique [facility] 2022-08-05 2022-08-05 [facility] [id number] Univers 12:20:00 15:34:00 [id number] [facility] [id number] [address] 2022-08-03 2022-08-03 Outpatient Canales_M DMG DMG [id number] Devoted 00:00:00 00:00:00 1103 Medica l Group 2022-07-27 2022-07-27 OFFICE STLMLC STLMLC [id number] Co mmon 00:00:00 00:00:00 VISIT Spirit ESTAB PT - CHI LEVEL 4 [facility] 2022-06-15 2022-06-15 OFFICE STLMLC STLMLC [id number] Co mmon 00:00:00 00:00:00 VISIT Spirit ESTAB PT - CHI LEVEL 4 [facility] 2022-06-12 2022-06-12 CAV Allegra [id number]. [id number]. [facility] [id number] Devoted 20:00:00 21:00:00 Valentín [id number] [facility] [id number] 2022-04-28 2022-04-28 Ambulatory nullFlavo MNA [id number] Memoria 19:00:00 19:00:00 Pre-Reg r Neurology 14 l Lana Carter 2022-04-28 2022-04-28 Ambulatory nullFlavo MNA [id number] Memoria 19:00:00 19:00:00 Pre-Reg r Neurology 14 l Lana Carter 2022-04-28 2022-04-28 Outpatient MHIE MHIE [id number] Memoria 14:00:00 14:00:00 14 lavelle Carter 2022-04-28 2022-04-28 Outpatient YURIDIA Garcia [facility] [id number] 14:00:00 14:00:00 Jeffrey 14 Hollis 2022-04-14 2022-04-14 Outpatient Canales_M DMG DMG [id number] Devoted 07:15:00 07:15:00 0715 Medica l Group 2021-12-15 2021-12-15 (TEL) STLMLC STLMLC [id number] Co mmon 00:00:00 00:00:00 [facility] 2021-12-08 2021-12-08 (TEL) STLMLC STLMLC [id number] Co mmon 00:00:00 00:00:00 [facility] 2021-11-29 2021-11-29 OL DIG E/M STLMLC STLMLC [id number] Common 00:00:00 00:00:00 SVC 5-10 Spiri t [facility] 2021-11-21 2021-11-21 (TEL) STLMLC STLMLC [id number] Co mmon 00:00:00 00:00:00 [facility] 2021-11-02 2021-11-03 Outpatient nullFlavo MNA [id number] Memoria 19:30:00 05:59:59 r Neurology 13 l Lana Carter 2021-11-02 2021-11-03 Outpatient nullFlavo MNA [id number] Memoria 19:30:00 05:59:59 r Neurology 13 l Lana Carter 2021-11-02 2021-11-02 [id number] 13:30:00 23:59:59 Jeffrey 13 Hollis 2021-11-02 2021-11-02 Ambulatory nullFlavo MNA [id number] Memoria 19:00:00 19:00:00 Pre-Reg r Neurology 12 l Lana Carter 2021-11-02 2021-11-02 Ambulatory nullFlavo MNA [id number] Memoria 19:00:00 19:00:00 Pre-Reg r Neurology 12 l Lana Carter 2021-11-02 2021-11-02 Outpatient MHIE MHIE [id number] Memoria 13:30:00 13:30:00 13 lavelle Carter 2021-11-02 2021-11-02 Outpatient MHIE MHIE [id number] Memoria 13:00:00 13:00:00 12 lavelle Carter 2021-11-02 2021-11-02 Outpatient YURIDIA Garcia [facility] [id number] 13:00:00 13:00:00 Jeffreyfrancisco Shafer 2021-10-26 2021-10-26 (TEL) STLMLC STLMLC [id number] Co mmon 00:00:00 00:00:00 [facility] 2021-10-17 2021-10-17 OFFICE STLMLC STLC [id number] Co mmon 00:00:00 00:00:00 VISIT [facility] ESTAB PT - CHI LEVEL 4 [facility] 2021-10-03 2021-10-03 CAV Allegra [id number]. [id number]. CLAC [id number] [facility] 20:00:00 21:30:00 Valentín [id number] Medical [id number] 2021-08-29 2021-08-29 Outpatient Canales_M DMG DMG [id number] [facility] 12:42:00 12:42:00 [id number] Medica l Group 2021-06-28 2021-06-28 Ambulatory nullFlavo MNA [id number] Memoria 19:00:00 19:00:00 Pre-Reg r Neurology 11 l Lana Carter 2021-06-28 2021-06-28 Ambulatory nullFlavo MNA [id number] Memoria 19:00:00 19:00:00 Pre-Reg r Neurology 11 l Lana Carter 2021-06-28 2021-06-28 Outpatient MHIE MHIE [id number] Memoria 14:00:00 14:00:00 11 lavelle Carter 2021-06-28 2021-06-28 Outpatient YURIDIA Garcia [facility] [id number] 14:00:00 14:00:00 Jeffrey Shafer 2021-05-16 2021-05-16 Outpatient STLMLC STLMLC [id number] Common 00:00:00 00:00:00 [facility] 2021-05-10 2021-05-10 Outpatient STLMLC STLMLC [id number] Common 00:00:00 00:00:00 [facility] 2021-04-12 2021-04-12 Outpatient STLMLC STLMLC [id number] Common 00:00:00 00:00:00 [facility] 2021-03-28 2021-03-28 Outpatient Olivia-Mbayo VFP VFP [id number] [facility] [place] [address] 05:32:00 05:32:00 _A_AH [id number] Family Practic e 2021-03-07 2021-03-07 Outpatient STLMLC STLMLC [id number] Common 00:00:00 00:00:00 Ronald [facility] 2021-02-08 2021-02-08 Outpatient STLMLC STLMLC [id number] Common 00:00:00 00:00:00 [facility] 2021-01-28 2021-01-30 Outside nullFlavo MNA [id number] Memoria 14:05:24 04:59:59 Medical r Neurology 01 l Records L[place] 2021-01-28 2021-01-30 Outside nullFlavo MNA [id number] Memoria 14:05:24 04:59:59 Medical r Neurology 01 l Records [place] 2021-01-28 2021-01-29 Outpatient MISCHER MISCHER [id number] 09:05:24 23:59:59 01 2021-01-18 2021-01-18 Outpatient Olivia-Mbayo VFP VFP 793 [facility] 01:43:00 01:43:00 _A_AH [id number] Family Practic e 2021-01-14 2021-01-14 Outpatient Canales_M ARYAN SILVAG [id number] -[id number] [facility] 05:20:00 05:20:00 0416 Medica l Group 2021-01-14 2021-01-14 Caitlyn SILVA MA - [id number] D evoted 00:00:00 00:00:00 Radha Choudhurya l Jerez, Health Group SENIOR MARKETING DATA ANALYST: [id number] [facility] [address], [place] [address] , Ph. 2021-01-14 2021-01-14 Outpatient Jerez, [facility] [id number] 00:00:00 00:00:00 Caitlyn [id number] Radha [id number] 2021-01-13 2021-01-13 [place] [id number] -[id number] [facility] 05:35:00 05:35:00 0415 Medica l Group 2021-01-12 2021-01-12 [place] [id number] -2020 [facility] 04:16:00 04:16:00 0414 Medica l Group 2020-12-24 2020-12-25 Outpatient nullFlavo MNA [id number] Memoria 18:45:00 04:59:59 r Neurology 10 l Lana [place] 2020-12-24 2020-12-25 Outpatient nullFlavo MNA [id number] Memoria 18:45:00 04:59:59 r Neurology 10 l Lana Carter 2020-12-24 2020-12-24 Outpatient PRUDENCIO GarciaMISCHER MHMISCHER [id number] 13:45:00 23:59:59 Jeffrey 10 [place] 2020-12-24 2020-12-24 Outpatient MHIE IE [id number] Memoria 13:45:00 13:45:00 10 l Raul 2020-12-09 2020-12-09 Outpatient STLMLC STLMLC [id number] Common 00:00:00 00:00:00 [facility] 2020-12-09 2020-12-09 Outpatient STLMLC STLMLC [id number] Common 00:00:00 00:00:00 [facility] 2020-11-30 2020-11-30 Outpatient STLMLC STLMLC [id number] Common 00:00:00 00:00:00 [facility] 2020-11-23 2020-11-25 Outside nullFlavo MNA [id number] Memoria 17:49:36 05:59:59 Medical r Neurology 00 l Records Lana Carter 2020-11-23 2020-11-25 Outside nullFlavo MNA [id number] Memoria 17:49:36 05:59:59 Medical r Neurology 00 l Records Lana Cunhaann 2020-11-23 2020-11-24 [id number] 11:49:36 23:59:59 2020-10-28 2020-10-28 Outpatient STLMLC STLMLC [id number] Common 00:00:00 00:00:00 [facility] 2020-10-25 2020-10-25 Outpatient STLMLC STLMLC [id number] Common 00:00:00 00:00:00 [facility] 2020-10-11 2020-10-11 Ambulatory nullFlavo MNA [id number] Memoria 21:15:00 21:15:00 Pre-Reg r Neurology 09 l Lana Cunhaann 2020-10-11 2020-10-11 Ambulatory nullFlavo MNA [id number] Memoria 21:15:00 21:15:00 Pre-Reg r Neurology 09 l Lana Cunhaann 2020-10-11 2020-10-11 Outpatient MHIE MHIE [id number] Memoria 15:15:00 15:15:00 09 l [place] 2020-10-11 2020-10-11 Outpatient [facility] [id number] 15:15:00 15:15:00 Jeffrey Stap[place] 2020-09-29 2020-09-29 Outpatient STLMLC STLMLC [id number] Common 00:00:00 00:00:00 [facility] 2020-09-05 2020-09-06 Observatio nullFlavo [facility] [id number] Memoria 02:36:00 21:43:00 n r Raul 40 [facility] 2020-09-05 2020-09-06 Observatio nullFlavo [facility] [id number] Memoria 02:36:00 21:43:00 n r Raul 40 [facility] 2020-09-04 2020-09-06 Outpatient Nae [facility] [id number] 20:36:00 15:43:00 Vincent Sage 2020-09-04 2020-09-04 Outpatient Nae [facility] [id number] 20:36:00 20:36:00 Vincent Sage 2020-08-24 2020-08-24 Ambulatory nullFlavo MNA [id number] Memoria 19:15:00 19:15:00 Pre-Reg r Neurology 08 l [place] 2020-08-24 2020-08-24 Ambulatory nullFlavo MNA [id number] Memoria 19:15:00 19:15:00 Pre-Reg r Neurology 08 l [facility] 2020-08-24 2020-08-24 Outpatient MHIE FRANCESCO [id number] Memoria 13:15:00 13:15:00 08 [facility] 2020-08-24 2020-08-24 Outpatient YURIDIA Garcia [id number] 13:15:00 13:15:00 Jeffrey 08 [facility] 2020-06-28 2020-06-28 Emergency [facility] [id number] [facility] 11:51:00 15:02:00 Sariah Amin [id number] i ty of [place] 4.2.7.2.686 [facility] [id number] [address] 2020-06-28 2020-06-28 Emergency [facility] [id number] 11:51:00 15:02:00 Sariah Amin [id number] [place] [id number] [place] [address] [id number] [facility] 2020-05-25 2020-05-26 Outpatient nullFlavo MNA [id number] Memoria 18:45:00 04:59:59 r Neurology 07 l [place] 2020-05-25 2020-05-26 Outpatient nullFlavo MNA [id number] Memoria 18:45:00 04:59:59 r Neurology 07 l [facility] 2020-05-25 2020-05-25 Outpatient YURIDIA Garcia [id number] 13:45:00 23:59:59 Jeffrey 07 [place] 2020-05-25 2020-05-25 Outpatient MHIE MHIE [id number] [facility]oria 13:45:00 13:45:00 07 l [place] 2020-03-30 2020-03-30 Ambulatory nullFlavo MNA [id number] Memoria 20:15:00 20:15:00 Pre-Reg r Neurology 05 l [place] 2020-03-30 2020-03-30 Ambulatory nullFlavo MNA [id number] Memoria 20:15:00 20:15:00 Pre-Reg r Neurology 05 l [place] 2020-03-30 2020-03-30 Outpatient MHIE MHIE [id number] Memoria 15:15:00 15:15:00 05 l [place] 2020-03-30 2020-03-30 Outpatient PRUDENCIO GarciaMISCHER MHMISCHER [id number] 15:15:00 15:15:00 Jeffrey 05 [place] 2020-03-24 2020-03-25 Outpatient nullFlavo MNA [id number] Memoria 14:00:00 04:59:59 r Neurology 06 l [place] 2020-03-24 2020-03-25 Outpatient nullFlavo MNA [id number] Memoria 14:00:00 04:59:59 r Neurology 06 l [place] 2020-03-24 2020-03-24 Outpatient PRUDENCIO GarciaMISCHER MISCHER [id number] 09:00:00 23:59:59 Jeffrey 06 [place] 2020-03-24 2020-03-24 Outpatient MHIE MHIE [id number] Memoria 09:00:00 09:00:00 06 [facility] 2020-02-19 2020-02-19 Emergency [facility], [id number] [facility] 14:18:56 16:04:00 Maria Luisa Amin [id number] ity [facility] [id number] [place] [id number] 2020-02-19 2020-02-19 Emergency [place], [facility] [id number] 14:18:56 16:04:00 Maria Luisa Amin [id number] [place] [address] [place] [address] [id number] 2019-12-11 2019-12-11 Outpatient Olivia-Mbayo VFP VFP [id number] [place] 06:48:00 06:48:00 _A_AH 10426 Family Practic e 2019-12-11 2019-12-11 Outpatient Olivia-Mbayo VFP VFP [id number] [facility] 06:48:00 06:48:00 _A_AH 64288 Family Practic e 2019-12-09 2019-12-10 [facility] [id number] [facility] 21:28:34 00:05:00 Timi Amin [id number] i [facility] [id number] [facility] [id number] [address] 2019-12-09 2019-12-10 Emergency [facility] E[facility] [id number] [facility] 21:28:34 00:05:00 TIMI dominique [facility] 2019-12-09 2019-12-10 Emergency [facility] [id number] 21:28:34 00:05:00 Timi Amin [id number] [place] 4.2.7.2.686 [place] [id number] 2019-11-19 2019-11-19 Outpatient Olivia-Mbayo VFP VFP [id number] [facility] 07:16:00 07:16:00 _A_AH 87428 Family Practic e 2019-09-16 2019-09-16 Ambulatory nullFlavo MNA [id number] Memoria 21:00:00 21:00:00 Pre-Reg r Neurology 04 l Lana Carter 2019-09-16 2019-09-16 Ambulatory nullFlavo MNA [id number] Memoria 21:00:00 21:00:00 Pre-Reg r Neurology 04 l Lana Carter 2019-09-16 2019-09-16 Outpatient MHIE MHIE [id number] Memoria 15:00:00 15:00:00 Sonia Carter 2019-09-16 2019-09-16 Outpatient GOSIA GarciaSCHANJEL SAMSCHANJEL [id number] 15:00:00 15:00:00 Jeffrey Shafer 2019-07-24 2019-07-25 Outpatient nullFlavo MNA [id number] Memoria 19:15:00 04:59:59 r Neurology 03 lavelle Schwartz [place] 2019-07-24 2019-07-25 Outpatient nullFlavo MNA [id number] [facility] 19:15:00 04:59:59 r Neurology 03 lavelle Schwartz [place] 2019-07-24 2019-07-24 Outpatient [facility] [id number] 14:15:00 23:59:59 Jeffrey 03 [place] 2019-07-24 2019-07-24 Outpatient MHIE MHIE [id number] Memoria 14:15:00 14:15:00 03 [place] 2019-05-21 2019-05-22 Outpatient nullFlavo MNA [id number] [facility] 19:30:00 04:59:59 r Neurology 02 lavelle Schwartz [place] 2019-05-21 2019-05-22 Outpatient nullFlavo MNA [id number] Memoria 19:30:00 04:59:59 r Neurology 02 [place] 2019-05-21 2019-05-21 Outpatient [facility] [id number] 14:30:00 23:59:59 Jeffrey 02 [place] 2019-05-21 2019-05-21 Outpatient MHIE IE [id number] Memoria 14:30:00 14:30:00 02 [place] 2019-03-21 2019-03-22 Outpatient nullFlavo MNA [id number] Memoria 19:30:00 04:59:59 r Neurology 01 lavelle Schwartz [place] 2019-03-21 2019-03-22 Outpatient nullFlavo MNA [id number] Memoria 19:30:00 04:59:59 r Neurology 01 lavelle Schwartz [place] 2019-03-21 2019-03-21 Outpatient [facility] [id number] 14:30:00 23:59:59 Jeffrey [place] 2019-03-21 2019-03-21 Outpatient MHIE MHIE [id number] Memoria 14:30:00 14:30:00 01 lavelle Raul 2019-02-21 2019-02-22 Outpatient nullFlavo MNA [id number] Memoria 20:00:00 04:59:59 r Neurology 00 lavelle Schwartz [place] 2019-02-21 2019-02-22 Outpatient nullFlavo MNA [id number] Memoria 20:00:00 04:59:59 r Neurology 00 l [place] 2019-02-21 2019-02-21 Outpatient YURIDIA Garcia [id number] 15:00:00 23:59:59 Jeffrey 00 [place] Results Test Description Test Time Test Comments Results Result Comments Source CHEM PANEL 2020-09-06 10:24:00 Test Item Value Reference Range Interpretation Comme nts Glucose Lvl (test code = Glucose Lvl) 66 70-99 [facility]2020-12-07 10:24:00 Test Item Value Reference Range Interpretation Comments BUN (test code = BUN) 19 7-22 [facility]2020-12-07 10:24:00 Test Item Value Reference Range Interpretation Comments Creatinine Lvl (test code = Creatinine 1.82 0.50-1.40 Lvl) [facility]2020-12-07 10:24:00 Test Item Value Reference Range Interpretation Comments Sodium Lvl (test code = Sodium Lvl) 139 135-145 [facility]2020-12-07 10:24:00 Test Item Value Reference Range Interpretation Comments Potassium Lvl (test code = Potassium 4.2 3.5-5.1 Lvl) [facility]2020-12-07 10:24:00 Test Item Value Reference Range Interpretation Comments Chloride Lvl (test code = Chloride Lvl) 105 95-109 [facility]2020-12-07 10:24:00 Test Item Value Reference Range Interpretation Comments CO2 (test code = CO2) 28 24-32 [facility]2020-12-07 10:24:00 Test Item Value Reference Range Interpretation Comments Calcium Lvl (test code = Calcium Lvl) 8.2 8.5-10.5 [facility]2020-12-07 10:24:00 Test Item Value Reference Range Interpretation Comments AGAP (test code = AGAP) 10.2 10.0-20.0 [facility]2020-12-07 10:24:00 Test Item Value Reference Range Interpretation Comments eGFR (test code = eGFR) 26 [facility]uz[facility]palCMBVHOJIDA4802-78-51 10:24:00 Test Item Value Reference Range Interpretation Comments Segs (test code = Segs) 70.6 45.0-75.0 [facility]entonJfogrokDKVPDTTCHY2909-47-04 10:24:00 Test Item Value Reference Range Interpretation Comments Lymphocytes (test code = Lymphocytes) 13.2 20.0-40.0 [facility]entonAexmvhdUBMYCQTCVU4479-19-93 10:24:00 Test Item Value Reference Range Interpretation Comments Monocytes (test code = Monocytes) 10.9 2.0-12.0 [facility]entonAnrzawqBBMUEZHJUA4278-95-96 10:24:00 Test Item Value Reference Range Interpretation Comments Eosinophils (test code = 4.6 See_Comment [A utomated message] The Eosinophils) system which ge nerated this result tra nsmitted reference range : <=4.0. The reference r christiano was not used to int erpret this result as normal/abnormal . [facility]entonLejwgfwTBXVCNUBIZ6905-04-85 10:24:00 Test Item Value Reference Range Interpretation Comments Basophils (test code = 0.7 See_Comment [Aut omated message] The Basophils) system which ge nerated this result tra nsmitted reference range : <=1.0. The reference r christiano was not used to int erpret this result as normal/abnormal . [facility]entonAjpxrtiKPZEZIYHAH3388-90-69 10:24:00 Test Item Value Reference Range Interpretation Comments Neutrophils # (test code = Neutrophils 5.3 1.5-8.1 #) [facility]entonSftwrbjNROBLOOGGB9530-41-79 10:24:00 Test Item Value Reference Range Interpretation Comments Lymphocytes # (test code = Lymphocytes 1.0 1.0-5.5 #) [facility]entonJhwtavmSOYBBMWMTK2208-28-64 10:24:00 Test Item Value Reference Range Interpretation Comments Monocytes # (test code 0.8 See_Comment [Aut omated message] The = Monocytes #) system which generated this result tra nsmitted reference range : <=0.8. The reference r christiano was not used to int erpret this result as normal/abnormal . [facility]entonOfvjixiYRADSTOJAY6845-09-20 10:24:00 Test Item Value Reference Range Interpretation Comments Eosinophils # (test code 0.3 See_Comment [A utomated message] The = Eosinophils #) system ic h generated this result tra nsmitted reference range : <=0.5. The reference r christiano was not used to int erpret this result as normal/abnormal . [facility]TmzmtxwUQBNHMBINM2650-69-47 10:24:00 Test Item Value Reference Range Interpretation Comments Basophils # (test code 0.1 See_Comment [Aut omated message] The = Basophils #) system which generated this result tra nsmitted reference range : <=0.2. The reference r christiano was not used to int erpret this result as normal/abnormal . [facility] HospitalGpecokyDTKMCZGMXQ0773-99-73 10:24:00 Test Item Value Reference Range Interpretation Comments WBC (test code = WBC) 7.5 3.7-10.4 [facility] HospitalRzoveaxRRGSPHBWLS0329-60-51 10:24:00 Test Item Value Reference Range Interpretation Comments RBC (test code = RBC) 3.85 4.20-5.40 [facility] HospitalMtzdcpeZNNBCFMDGY5875-04-50 10:24:00 Test Item Value Reference Range Interpretation Comments Hgb (test code = Hgb) 10.6 12.0-16.0 [facility] HospitalTaanrbfTAKUQNMRNN8816-56-42 10:24:00 Test Item Value Reference Range Interpretation Comments Hct (test code = Hct) 32.1 36.0-48.0 [facility] HospitalIiosimaFBZBJHPADH0695-95-03 10:24:00 Test Item Value Reference Range Interpretation Comments MCV (test code = MCV) 83.5 80.0-98.0 [facility] HospitalChqdpxmHQPKYMPWEU3908-83-06 10:24:00 Test Item Value Reference Range Interpretation Comments MCH (test code = MCH) 27.7 pg 27.0-31.0 [facility] HospitalOuxnvsvFGRFATDGSD3952-08-63 10:24:00 Test Item Value Reference Range Interpretation Comments MCHC (test code = MCHC) 33.1 32.0-36.0 [facility] HospitalIwahmldRHQGQLUQLW4323-75-65 10:24:00 Test Item Value Reference Range Interpretation Comments RDW (test code = RDW) 16.8 11.5-14.5 [facility]HxwurnwABEWTGSQUJ6266-16-40 10:24:00 Test Item Value Reference Range Interpretation Comments Platelet (test code = Platelet) 185 133-450 [facility] CenterXvmtuaaERKIJDSEPH2131-09-57 10:24:00 Test Item Value Reference Range Interpretation Comments MPV (test code = MPV) 8.4 7.4-10.4 [facility]2020-12-07 10:24:00 Test Item Value Reference Range Interpretation Comments Glucose Lvl (test code = Glucose Lvl) 66 70-99 [facility]2020-12-07 10:24:00 Test Item Value Reference Range Interpretation Comments BUN (test code = BUN) 19 7-22 [facility]2020-12-07 10:24:00 Test Item Value Reference Range Interpretation Comments Creatinine Lvl (test code = Creatinine 1.82 0.50-1.40 Lvl) [facility]2020-12-07 10:24:00 Test Item Value Reference Range Interpretation Comments Sodium Lvl (test code = Sodium Lvl) 139 135-145 [facility]2020-12-07 10:24:00 Test Item Value Reference Range Interpretation Comments Potassium Lvl (test code = Potassium 4.2 3.5-5.1 Lvl) [facility]2020-12-07 10:24:00 Test Item Value Reference Range Interpretation Comments Chloride Lvl (test code = Chloride Lvl) 105 95-109 [facility]2020-12-07 10:24:00 Test Item Value Reference Range Interpretation Comments CO2 (test code = CO2) 28 24-32 [facility]2020-12-07 10:24:00 Test Item Value Reference Range Interpretation Comments Calcium Lvl (test code = Calcium Lvl) 8.2 8.5-10.5 [facility]2020-12-07 10:24:00 Test Item Value Reference Range Interpretation Comments AGAP (test code = AGAP) 10.2 10.0-20.0 [facility]2020-12-07 10:24:00 Test Item Value Reference Range Interpretation Comments eGFR (test code = eGFR) 26 [facility]entonDoavcluNXDSUNLBLN1556-44-88 10:24:00 Test Item Value Reference Range Interpretation Comments Segs (test code = Segs) 70.6 45.0-75.0 [facility]entonNbfcqfaCNTTMCUSQJ8903-49-33 10:24:00 Test Item Value Reference Range Interpretation Comments Lymphocytes (test code = Lymphocytes) 13.2 20.0-40.0 [facility]entonYiughseUTVPCQNTWD5286-66-72 10:24:00 Test Item Value Reference Range Interpretation Comments Monocytes (test code = Monocytes) 10.9 2.0-12.0 [facility]entonNoblnyyYKDZTNGSWJ7013-79-17 10:24:00 Test Item Value Reference Range Interpretation Comments Eosinophils (test code = 4.6 See_Comment [A utomated message] The Eosinophils) system which ge nerated this result tra nsmitted reference range : <=4.0. The reference r christiano was not used to int erpret this result as normal/abnormal . [facility]entonOsucpmyDUWAKQANJF3218-74-45 10:24:00 Test Item Value Reference Range Interpretation Comments Basophils (test code = 0.7 See_Comment [Aut omated message] The Basophils) system which ge nerated this result tra nsmitted reference range : <=1.0. The reference r christiano was not used to int erpret this result as normal/abnormal . [facility]entonKgdfoyvIBHFKKLYIO0372-41-38 10:24:00 Test Item Value Reference Range Interpretation Comments Neutrophils # (test code = Neutrophils 5.3 1.5-8.1 #) [facility]entonHddqtraGVFZFCWPHR1252-14-53 10:24:00 Test Item Value Reference Range Interpretation Comments Lymphocytes # (test code = Lymphocytes 1.0 1.0-5.5 #) [facility]entonBtpzxwuNMNFEDSSHO1015-75-53 10:24:00 Test Item Value Reference Range Interpretation Comments Monocytes # (test code 0.8 See_Comment [Aut omated message] The = Monocytes #) system which generated this result tra nsmitted reference range : <=0.8. The reference r christiano was not used to int erpret this result as normal/abnormal . [facility] DentonXcexmrnTEXWSAAANM0386-49-94 10:24:00 Test Item Value Reference Range Interpretation Comments Eosinophils # (test code 0.3 See_Comment [A utomated message] The = Eosinophils #) system whic h generated this result tra nsmitted reference range : <=0.5. The reference r christiano was not used to int erpret this result as normal/abnormal . [facility]entonXwvlugdYEUNQDSPWS1025-43-92 10:24:00 Test Item Value Reference Range Interpretation Comments Basophils # (test code 0.1 See_Comment [Aut omated message] The = Basophils #) system which generated this result tra nsmitted reference range : <=0.2. The reference r christiano was not used to int erpret this result as normal/abnormal . [facility]entonGdnpyroFVMOQMWJHH8526-86-70 10:24:00 Test Item Value Reference Range Interpretation Comments WBC (test code = WBC) 7.5 3.7-10.4 [facility]entonXydxvswZMANMWBZPP6130-51-97 10:24:00 Test Item Value Reference Range Interpretation Comments RBC (test code = RBC) 3.85 4.20-5.40 [facility]entonMbxrveeLLWXFSFJZB4387-94-26 10:24:00 Test Item Value Reference Range Interpretation Comments Hgb (test code = Hgb) 10.6 12.0-16.0 [place] 511280-12-07 10:24:00 Test Item Value Reference Range Interpretation Comments Hct (test code = Hct) 32.1 36.0-48.0 [facility]entonMbartmrPGGGRBQUUM2168-67-32 10:24:00 Test Item Value Reference Range Interpretation Comments MCV (test code = MCV) 83.5 80.0-98.0 [facility]entonDnumcoiEKCUXWUPHI8183-26-11 10:24:00 Test Item Value Reference Range Interpretation Comments MCH (test code = MCH) 27.7 pg 27.0-31.0 [facility]entonQbanxtgAJZCPIIAPW2259-61-13 10:24:00 Test Item Value Reference Range Interpretation Comments MCHC (test code = MCHC) 33.1 32.0-36.0 [facility]entonWhgtiuiACGYUSFLTI0204-00-16 10:24:00 Test Item Value Reference Range Interpretation Comments RDW (test code = RDW) 16.8 11.5-14.5 [facility]entonTcsprktKUQVPMODEF6331-62-70 10:24:00 Test Item Value Reference Range Interpretation Comments Platelet (test code = Platelet) 185 133-450 [facility]entonYkderxpQDIJCGOHAH1488-02-04 10:24:00 Test Item Value Reference Range Interpretation Comments MPV (test code = MPV) 8.4 7.4-10.4 [facility]2020-12-07 10:24:00 Test Item Value Reference Range Interpretation Comments Glucose Lvl (test code = Glucose Lvl) 66 70-99 [facility]2020-12-07 10:24:00 Test Item Value Reference Range Interpretation Comments BUN (test code = BUN) 19 7-22 [facility]2020-12-07 10:24:00 Test Item Value Reference Range Interpretation Comments Creatinine Lvl (test code = Creatinine 1.82 0.50-1.40 Lvl) [facility]2020-12-07 10:24:00 Test Item Value Reference Range Interpretation Comments Sodium Lvl (test code = Sodium Lvl) 139 135-145 [facility]2020-12-07 10:24:00 Test Item Value Reference Range Interpretation Comments Potassium Lvl (test code = Potassium 4.2 3.5-5.1 Lvl) [facility]2020-12-07 10:24:00 Test Item Value Reference Range Interpretation Comments Chloride Lvl (test code = Chloride Lvl) 105 95-109 [facility]2020-12-07 10:24:00 Test Item Value Reference Range Interpretation Comments CO2 (test code = CO2) 28 24-32 [place] 604260-12-07 10:24:00 Test Item Value Reference Range Interpretation Comments Calcium Lvl (test code = Calcium Lvl) 8.2 8.5-10.5 [facility]2020-12-07 10:24:00 Test Item Value Reference Range Interpretation Comments AGAP (test code = AGAP) 10.2 10.0-20.0 [facility]2020-12-07 10:24:00 Test Item Value Reference Range Interpretation Comments eGFR (test code = eGFR) 26 [facility]entonPhpvbpaLINMNZXNRG5700-23-72 10:24:00 Test Item Value Reference Range Interpretation Comments Segs (test code = Segs) 70.6 45.0-75.0 [facility]entonRebtwcpWMSLXUIOFS9202-13-13 10:24:00 Test Item Value Reference Range Interpretation Comments Lymphocytes (test code = Lymphocytes) 13.2 20.0-40.0 [place] 511280-12-07 10:24:00 Test Item Value Reference Range Interpretation Comments Monocytes (test code = Monocytes) 10.9 2.0-12.0 [place] 511280-12-07 10:24:00 Test Item Value Reference Range Interpretation Comments Eosinophils (test code = 4.6 See_Comment [A utomated message] The Eosinophils) system which ge nerated this result tra nsmitted reference range : <=4.0. The reference r christiano was not used to int erpret this result as normal/abnormal . [facility] DentonRnpckalDLUKHAACWG7213-79-96 10:24:00 Test Item Value Reference Range Interpretation Comments Basophils (test code = 0.7 See_Comment [Aut omated message] The Basophils) system which ge nerated this result tra nsmitted reference range : <=1.0. The reference r christiano was not used to int erpret this result as normal/abnormal . [facility]entonSqxvagdEJTAMNYVPY9868-13-23 10:24:00 Test Item Value Reference Range Interpretation Comments Neutrophils # (test code = Neutrophils 5.3 1.5-8.1 #) [facility]YN1073[facility] 10:24:00 Test Item Value Reference Range Interpretation Comments Lymphocytes # (test code = Lymphocytes 1.0 1.0-5.5 #) [facility]JorvayoRQOPTQDKPO1592-26-43 10:24:00 Test Item Value Reference Range Interpretation Comments Monocytes # (test code 0.8 See_Comment [Aut omated message] The = Monocytes #) system which generated this result tra nsmitted reference range : <=0.8. The reference r christiano was not used to int erpret this result as normal/abnormal . [facility]DonasimAOZBUCJHYJ3866-76-50 10:24:00 Test Item Value Reference Range Interpretation Comments Eosinophils # (test code 0.3 See_Comment [A utomated message] The = Eosinophils #) system whic h generated this result tra nsmitted reference range : <=0.5. The reference r christiano was not used to int erpret this result as normal/abnormal . [facility]entonIcqajqcXNPCFFMJUQ2684-75-06 10:24:00 Test Item Value Reference Range Interpretation Comments Basophils # (test code 0.1 See_Comment [Aut omated message] The = Basophils #) system which generated this result tra nsmitted reference range : <=0.2. The reference r christiano was not used to int erpret this result as normal/abnormal . [facility]XvabzdhYJYFKOSAUV5072-22-70 10:24:00 Test Item Value Reference Range Interpretation Comments WBC (test code = WBC) 7.5 3.7-10.4 [facility]GkbdjwqOMMGCGMJJG8271-28-46 10:24:00 Test Item Value Reference Range Interpretation Comments RBC (test code = RBC) 3.85 4.20-5.40 [place] 511280-12-07 10:24:00 Test Item Value Reference Range Interpretation Comments Hgb (test code = Hgb) 10.6 12.0-16.0 [facility]ExtmhbqKUHTMGPZOE0391-95-44 10:24:00 Test Item Value Reference Range Interpretation Comments Hct (test code = Hct) 32.1 36.0-48.0 [place] 511280-12-07 10:24:00 Test Item Value Reference Range Interpretation Comments MCV (test code = MCV) 83.5 80.0-98.0 [facility]EmzahrbOANTGCNWZF1388-95-55 10:24:00 Test Item Value Reference Range Interpretation Comments MCH (test code = MCH) 27.7 pg 27.0-31.0 [facility]TabmbsbBMQUESJBBI3411-89-08 10:24:00 Test Item Value Reference Range Interpretation Comments MCHC (test code = MCHC) 33.1 32.0-36.0 [facility]entonRjxtqvmBDRLPWHOHP5340-28-94 10:24:00 Test Item Value Reference Range Interpretation Comments RDW (test code = RDW) 16.8 11.5-14.5 [facility]UkgnfjpTJDYPRZWYQ8295-48-04 10:24:00 Test Item Value Reference Range Interpretation Comments Platelet (test code = Platelet) 185 133-450 [facility]JzgtvabSJSYCHDIKM7670-11-68 10:24:00 Test Item Value Reference Range Interpretation Comments MPV (test code = MPV) 8.4 7.4-10.4 [facility]2020-12-07 10:24:00 Test Item Value Reference Range Interpretation Comments Glucose Lvl (test code = Glucose Lvl) 66 70-99 [facility]2020-12-07 10:24:00 Test Item Value Reference Range Interpretation Comments BUN (test code = BUN) 19 7-22 [facility]2020-12-07 10:24:00 Test Item Value Reference Range Interpretation Comments Creatinine Lvl (test code = Creatinine 1.82 0.50-1.40 Lvl) [facility]2020-12-07 10:24:00 Test Item Value Reference Range Interpretation Comments Sodium Lvl (test code = Sodium Lvl) 139 135-145 [facility]2020-12-07 10:24:00 Test Item Value Reference Range Interpretation Comments Potassium Lvl (test code = Potassium 4.2 3.5-5.1 Lvl) [place] 604260-12-07 10:24:00 Test Item Value Reference Range Interpretation Comments Chloride Lvl (test code = Chloride Lvl) 105 95-109 [place] 604260-12-07 10:24:00 Test Item Value Reference Range Interpretation Comments CO2 (test code = CO2) 28 24-32 [place] 604260-12-07 10:24:00 Test Item Value Reference Range Interpretation Comments Calcium Lvl (test code = Calcium Lvl) 8.2 8.5-10.5 [facility]2020-12-07 10:24:00 Test Item Value Reference Range Interpretation Comments AGAP (test code = AGAP) 10.2 10.0-20.0 [facility]2020-12-07 10:24:00 Test Item Value Reference Range Interpretation Comments eGFR (test code = eGFR) 26 [place] 511280-12-07 10:24:00 Test Item Value Reference Range Interpretation Comments Segs (test code = Segs) 70.6 45.0-75.0 [place] 511280-12-07 10:24:00 Test Item Value Reference Range Interpretation Comments Lymphocytes (test code = Lymphocytes) 13.2 20.0-40.0 [facility]GqepqewADGIYRSLXA3029-96-73 10:24:00 Test Item Value Reference Range Interpretation Comments Monocytes (test code = Monocytes) 10.9 2.0-12.0 [place] 511280-12-07 10:24:00 Test Item Value Reference Range Interpretation Comments Eosinophils (test code = 4.6 See_Comment [A utomated message] The Eosinophils) system which ge nerated this result tra nsmitted reference range : <=4.0. The reference r christiano was not used to int erpret this result as normal/abnormal . [place] 511280-12-07 10:24:00 Test Item Value Reference Range Interpretation Comments Basophils (test code = 0.7 See_Comment [Aut omated message] The Basophils) system which ge nerated this result tra nsmitted reference range : <=1.0. The reference r christiano was not used to int erpret this result as normal/abnormal . [place] 511280-12-07 10:24:00 Test Item Value Reference Range Interpretation Comments Neutrophils # (test code = Neutrophils 5.3 1.5-8.1 #) [facility]MytrhpqNUKCCRIJRC6754-64-48 10:24:00 Test Item Value Reference Range Interpretation Comments Lymphocytes # (test code = Lymphocytes 1.0 1.0-5.5 #) [facility]TdnasmwZQQQJIFWWL7786-54-30 10:24:00 Test Item Value Reference Range Interpretation Comments Monocytes # (test code 0.8 See_Comment [Aut omated message] The = Monocytes #) system which generated this result tra nsmitted reference range : <=0.8. The reference r christiano was not used to int erpret this result as normal/abnormal . [facility]entonBmeqcqwABBNUBWBVC6820-44-09 10:24:00 Test Item Value Reference Range Interpretation Comments Eosinophils # (test code 0.3 See_Comment [A utomated message] The = Eosinophils #) system whic h generated this result tra nsmitted reference range : <=0.5. The reference r christiano was not used to int erpret this result as normal/abnormal . [facility]entonJxvgwxzKBZOLYUYSI5665-83-96 10:24:00 Test Item Value Reference Range Interpretation Comments Basophils # (test code 0.1 See_Comment [Aut omated message] The = Basophils #) system which generated this result tra nsmitted reference range : <=0.2. The reference r christiano was not used to int erpret this result as normal/abnormal . [facility]IqxyauwVGDXZXWCBT5127-32-47 10:24:00 Test Item Value Reference Range Interpretation Comments WBC (test code = WBC) 7.5 3.7-10.4 [facility]YtuqderEXAEDJVXEL8976-41-22 10:24:00 Test Item Value Reference Range Interpretation Comments RBC (test code = RBC) 3.85 4.20-5.40 [place] 511280-12-07 10:24:00 Test Item Value Reference Range Interpretation Comments Hgb (test code = Hgb) 10.6 12.0-16.0 [place] [address]-12-07 10:24:00 Test Item Value Reference Range Interpretation Comments Hct (test code = Hct) 32.1 36.0-48.0 [place] [address]-12-07 10:24:00 Test Item Value Reference Range Interpretation Comments MCV (test code = MCV) 83.5 80.0-98.0 [place] [address]-12-07 10:24:00 Test Item Value Reference Range Interpretation Comments MCH (test code = MCH) 27.7 pg 27.0-31.0 [place] 511280-12-07 10:24:00 Test Item Value Reference Range Interpretation Comments MCHC (test code = MCHC) 33.1 32.0-36.0 [facility]entonTgitmmtVCDHWKUMQJ3083-62-79 10:24:00 Test Item Value Reference Range Interpretation Comments RDW (test code = RDW) 16.8 11.5-14.5 [place] [address]-12-07 10:24:00 Test Item Value Reference Range Interpretation Comments Platelet (test code = Platelet) 185 133-450 [facility]entonBgghsaeHYMYDBUOQJ4740-36-77 10:24:00 Test Item Value Reference Range Interpretation Comments MPV (test code = MPV) 8.4 7.4-10.4 [facility]2020-12-07 10:24:00 Test Item Value Reference Range Interpretation Comments Glucose Lvl (test code = Glucose Lvl) 66 70-99 [facility]2020-12-07 10:24:00 Test Item Value Reference Range Interpretation Comments BUN (test code = BUN) 19 7-22 [facility]2020-12-07 10:24:00 Test Item Value Reference Range Interpretation Comments Creatinine Lvl (test code = Creatinine 1.82 0.50-1.40 Lvl) [facility]2020-12-07 10:24:00 Test Item Value Reference Range Interpretation Comments Sodium Lvl (test code = Sodium Lvl) 139 135-145 [facility]2020-12-07 10:24:00 Test Item Value Reference Range Interpretation Comments Potassium Lvl (test code = Potassium 4.2 3.5-5.1 Lvl) [facility]2020-12-07 10:24:00 Test Item Value Reference Range Interpretation Comments Chloride Lvl (test code = Chloride Lvl) 105 95-109 [place] 604260-12-07 10:24:00 Test Item Value Reference Range Interpretation Comments CO2 (test code = CO2) 28 24-32 [facility]2020-12-07 10:24:00 Test Item Value Reference Range Interpretation Comments Calcium Lvl (test code = Calcium Lvl) 8.2 8.5-10.5 [facility]2020-12-07 10:24:00 Test Item Value Reference Range Interpretation Comments AGAP (test code = AGAP) 10.2 10.0-20.0 [facility]2020-12-07 10:24:00 Test Item Value Reference Range Interpretation Comments eGFR (test code = eGFR) 26 [facility]UculkouJDLQLRKNQG4141-01-86 10:24:00 Test Item Value Reference Range Interpretation Comments Segs (test code = Segs) 70.6 45.0-75.0 [facility]entonOxzyqtkVAYBGNTBTX0017-01-58 10:24:00 Test Item Value Reference Range Interpretation Comments Lymphocytes (test code = Lymphocytes) 13.2 20.0-40.0 [facility]entonMgegrgoBJDATQAWNI6692-93-50 10:24:00 Test Item Value Reference Range Interpretation Comments Monocytes (test code = Monocytes) 10.9 2.0-12.0 [facility]entonUdjygupAFWHJGOJIM8610-10-80 10:24:00 Test Item Value Reference Range Interpretation Comments Eosinophils (test code = 4.6 See_Comment [A utomated message] The Eosinophils) system which ge nerated this result tra nsmitted reference range : <=4.0. The reference r christiano was not used to int erpret this result as normal/abnormal . [facility]entonVgxhjqpEMTYNBNDLH8640-33-35 10:24:00 Test Item Value Reference Range Interpretation Comments Basophils (test code = 0.7 See_Comment [Aut omated message] The Basophils) system which ge nerated this result tra nsmitted reference range : <=1.0. The reference r christiano was not used to int erpret this result as normal/abnormal . [facility]entonFikquaxYWYUJIKGBA2603-58-31 10:24:00 Test Item Value Reference Range Interpretation Comments Neutrophils # (test code = Neutrophils 5.3 1.5-8.1 #) [facility]BxwisrcLFYBNTHAPN6025-37-88 10:24:00 Test Item Value Reference Range Interpretation Comments Lymphocytes # (test code = Lymphocytes 1.0 1.0-5.5 #) [facility]entonYzywdwiEPIWWTSDSH6014-27-26 10:24:00 Test Item Value Reference Range Interpretation Comments Monocytes # (test code 0.8 See_Comment [Aut omated message] The = Monocytes #) system which generated this result tra nsmitted reference range : <=0.8. The reference r christiano was not used to int erpret this result as normal/abnormal . [facility]entonKjqxgogPTMSSSRRYV9521-24-59 10:24:00 Test Item Value Reference Range Interpretation Comments Eosinophils # (test code 0.3 See_Comment [A utomated message] The = Eosinophils #) system whic h generated this result tra nsmitted reference range : <=0.5. The reference r christiano was not used to int erpret this result as normal/abnormal . [facility]entonGvuqrqlZOEFXNVJZT8418-55-24 10:24:00 Test Item Value Reference Range Interpretation Comments Basophils # (test code 0.1 See_Comment [Aut omated message] The = Basophils #) system which generated this result tra nsmitted reference range : <=0.2. The reference r christiano was not used to int erpret this result as normal/abnormal . [facility]entonFpkmcdsJCFRYXGQET0541-94-55 10:24:00 Test Item Value Reference Range Interpretation Comments WBC (test code = WBC) 7.5 3.7-10.4 [facility]entonPkijdubZEIHYJUAOI5733-81-58 10:24:00 Test Item Value Reference Range Interpretation Comments RBC (test code = RBC) 3.85 4.20-5.40 [facility]entonLnokuuwGJAHVWYJUC4796-62-66 10:24:00 Test Item Value Reference Range Interpretation Comments Hgb (test code = Hgb) 10.6 12.0-16.0 [facility]entonTktjclvYBLQSKGDEL1367-71-78 10:24:00 Test Item Value Reference Range Interpretation Comments Hct (test code = Hct) 32.1 36.0-48.0 [facility]HfslwfoNASTANXPKB7347-55-70 10:24:00 Test Item Value Reference Range Interpretation Comments MCV (test code = MCV) 83.5 80.0-98.0 [facility]entonWvvmhvqWWFDNATFAQ3324-07-59 10:24:00 Test Item Value Reference Range Interpretation Comments MCH (test code = MCH) 27.7 pg 27.0-31.0 [facility]entonNydlbdkEIAMXRDVII5900-91-66 10:24:00 Test Item Value Reference Range Interpretation Comments MCHC (test code = MCHC) 33.1 32.0-36.0 [place] 511280-12-07 10:24:00 Test Item Value Reference Range Interpretation Comments RDW (test code = RDW) 16.8 11.5-14.5 [place] [address]-12-07 10:24:00 Test Item Value Reference Range Interpretation Comments Platelet (test code = Platelet) 185 133-450 [place] [address]-12-07 10:24:00 Test Item Value Reference Range Interpretation Comments MPV (test code = MPV) 8.4 7.4-10.4 [place] [address]-12-06 09:53:13 Test Item Value Reference Range Interpretation Comments Plt Morph (test code = Normal (09/05/20 3:53 Plt Morph) AM) [place] 604260-12-06 09:53:13 Test Item Value Reference Range Interpretation Comments Magnesium Lvl (test code = Magnesium 2.2 1.8-2.4 Lvl) [place] 604260-12-06 09:53:13 Test Item Value Reference Range Interpretation Comments Phosphorus (test code = Phosphorus) 2.9 2.5-4.5 [place] 604260-12-06 09:53:13 Test Item Value Reference Range Interpretation Comments Glucose Lvl (test code = Glucose Lvl) 102 70-99 [place] 604260-12-06 09:53:13 Test Item Value Reference Range Interpretation Comments BUN (test code = BUN) 17 7-22 [place] [address]-12-06 09:53:13 Test Item Value Reference Range Interpretation Comments Creatinine Lvl (test code = Creatinine 1.51 0.50-1.40 Lvl) [place] [address]-12-06 09:53:13 Test Item Value Reference Range Interpretation Comments Sodium Lvl (test code = Sodium Lvl) 140 135-145 [place] [address]-12-06 09:53:13 Test Item Value Reference Range Interpretation Comments Potassium Lvl (test code = Potassium 3.5 3.5-5.1 Lvl) [place] 604260-12-06 09:53:13 Test Item Value Reference Range Interpretation Comments Chloride Lvl (test code = Chloride Lvl) 106 95-109 [place] 604260-12-06 09:53:13 Test Item Value Reference Range Interpretation Comments CO2 (test code = CO2) 29 24-32 [facility]2020-12-06 09:53:13 Test Item Value Reference Range Interpretation Comments Calcium Lvl (test code = Calcium Lvl) 8.3 8.5-10.5 [place] 604260-12-06 09:53:13 Test Item Value Reference Range Interpretation Comments AGAP (test code = AGAP) 8.5 10.0-20.0 [place] 604260-12-06 09:53:13 Test Item Value Reference Range Interpretation Comments eGFR (test code = eGFR) 33 [place] [address]-12-06 09:53:13 Test Item Value Reference Range Interpretation Comments WBC (test code = WBC) 8.7 3.7-10.4 [place] 511280-12-06 09:53:13 Test Item Value Reference Range Interpretation Comments RBC (test code = RBC) 3.96 4.20-5.40 [place] [address]-12-06 09:53:13 Test Item Value Reference Range Interpretation Comments Hgb (test code = Hgb) 10.7 12.0-16.0 [place] [address]-12-06 09:53:13 Test Item Value Reference Range Interpretation Comments Hct (test code = Hct) 32.8 36.0-48.0 [place] [address]-12-06 09:53:13 Test Item Value Reference Range Interpretation Comments MCV (test code = MCV) 83.0 80.0-98.0 [place] [address]-12-06 09:53:13 Test Item Value Reference Range Interpretation Comments MCH (test code = MCH) 26.9 pg 27.0-31.0 [place] 511280-12-06 09:53:13 Test Item Value Reference Range Interpretation Comments MCHC (test code = MCHC) 32.4 32.0-36.0 [place] [address]-12-06 09:53:13 Test Item Value Reference Range Interpretation Comments RDW (test code = RDW) 16.5 11.5-14.5 [place] [address]-12-06 09:53:13 Test Item Value Reference Range Interpretation Comments Platelet (test code = Platelet) 157 133-450 [place] 511280-12-06 09:53:13 Test Item Value Reference Range Interpretation Comments MPV (test code = MPV) 7.5 7.4-10.4 [place] 511280-12-06 09:53:13 Test Item Value Reference Range Interpretation Comments Neutrophils # (test code = Neutrophils 7.2 1.5-8.1 #) [facility]ImtvgqcRYEZBUHNPI6347-03-16 09:53:13 Test Item Value Reference Range Interpretation Comments Lymphocytes # (test code = Lymphocytes 0.9 1.0-5.5 #) [place] 511280-12-06 09:53:13 Test Item Value Reference Range Interpretation Comments Monocytes # (test code 0.5 See_Comment [Aut omated message] The = Monocytes #) system which generated this result tra nsmitted reference range : <=0.8. The reference r christiano was not used to int erpret this result as normal/abnormal . [facility]entonZhtechnTIYJRYGYDY1244-52-06 09:53:13 Test Item Value Reference Range Interpretation Comments Basophils # (test code 0.1 See_Comment [Aut omated message] The = Basophils #) system which generated this result tra nsmitted reference range : <=0.2. The reference r christiano was not used to int erpret this result as normal/abnormal . [facility]entonTddnuajEREFFZQCDE7993-74-39 09:53:13 Test Item Value Reference Range Interpretation Comments Segs (test code = Segs) 83.0 45.0-75.0 [place] 511280-12-06 09:53:13 Test Item Value Reference Range Interpretation Comments Bands (test code = 0.0 See_Comment [Automat ed message] The Bands) system which ge nerated this result transmit sheba reference range : <=11.0. The reference r christiano was not used to interpr et this result as edy l/abnormal. [place] 511280-12-06 09:53:13 Test Item Value Reference Range Interpretation Comments Lymphocytes (test code = Lymphocytes) 10.0 20.0-40.0 [place] 511280-12-06 09:53:13 Test Item Value Reference Range Interpretation Comments Monocytes (test code = Monocytes) 6.0 2.0-12.0 [place] [address]-12-06 09:53:13 Test Item Value Reference Range Interpretation Comments Basophils (test code = 1.0 See_Comment [Aut omated message] The Basophils) system which ge nerated this result tra nsmitted reference range : <=1.0. The reference r christiano was not used to int erpret this result as normal/abnormal . [place] 511280-12-06 09:53:13 Test Item Value Reference Range Interpretation Comments Atypical Lymphs (test code = Atypical 0.0 Lymphs) [place] [address]-12-06 09:53:13 Test Item Value Reference Range Interpretation Comments RBC Morph (test code = Normal (09/05/20 3:53 RBC Morph) AM) [place] [address]-12-06 09:53:13 Test Item Value Reference Range Interpretation Comments Plt Morph (test code = Normal (09/05/20 3:53 Plt Morph) AM) [place] [address]-12-06 09:53:13 Test Item Value Reference Range Interpretation Comments Magnesium Lvl (test code = Magnesium 2.2 1.8-2.4 Lvl) [place] 604260-12-06 09:53:13 Test Item Value Reference Range Interpretation Comments Phosphorus (test code = Phosphorus) 2.9 2.5-4.5 [place] 604260-12-06 09:53:13 Test Item Value Reference Range Interpretation Comments Glucose Lvl (test code = Glucose Lvl) 102 70-99 [place] [address]-12-06 09:53:13 Test Item Value Reference Range Interpretation Comments BUN (test code = BUN) 17 7-22 [place] [address]-12-06 09:53:13 Test Item Value Reference Range Interpretation Comments Creatinine Lvl (test code = Creatinine 1.51 0.50-1.40 Lvl) [place] 604260-12-06 09:53:13 Test Item Value Reference Range Interpretation Comments Sodium Lvl (test code = Sodium Lvl) 140 135-145 [place] 604260-12-06 09:53:13 Test Item Value Reference Range Interpretation Comments Potassium Lvl (test code = Potassium 3.5 3.5-5.1 Lvl) [place] [address]-12-06 09:53:13 Test Item Value Reference Range Interpretation Comments Chloride Lvl (test code = Chloride Lvl) 106 95-109 [address]12-06 09:53:13 Test Item Value Reference Range Interpretation Comments CO2 (test code = CO2) 29 24-32 [place] 604260-12-06 09:53:13 Test Item Value Reference Range Interpretation Comments Calcium Lvl (test code = Calcium Lvl) 8.3 8.5-10.5 [place] [address]-12-06 09:53:13 Test Item Value Reference Range Interpretation Comments AGAP (test code = AGAP) 8.5 10.0-20.0 [place] [address]-12-06 09:53:13 Test Item Value Reference Range Interpretation Comments eGFR (test code = eGFR) 33 [place] 511280-12-06 09:53:13 Test Item Value Reference Range Interpretation Comments WBC (test code = WBC) 8.7 3.7-10.4 [place] 511280-12-06 09:53:13 Test Item Value Reference Range Interpretation Comments RBC (test code = RBC) 3.96 4.20-5.40 [place] 511280-12-06 09:53:13 Test Item Value Reference Range Interpretation Comments Hgb (test code = Hgb) 10.7 12.0-16.0 [place] 511280-12-06 09:53:13 Test Item Value Reference Range Interpretation Comments Hct (test code = Hct) 32.8 36.0-48.0 [place] 511280-12-06 09:53:13 Test Item Value Reference Range Interpretation Comments MCV (test code = MCV) 83.0 80.0-98.0 [place] [address]-12-06 09:53:13 Test Item Value Reference Range Interpretation Comments MCH (test code = MCH) 26.9 pg 27.0-31.0 [place] [address]-12-06 09:53:13 Test Item Value Reference Range Interpretation Comments MCHC (test code = MCHC) 32.4 32.0-36.0 [place] [address]-12-06 09:53:13 Test Item Value Reference Range Interpretation Comments RDW (test code = RDW) 16.5 11.5-14.5 [place] [address]-12-06 09:53:13 Test Item Value Reference Range Interpretation Comments Platelet (test code = Platelet) 157 133-450 [place] [address]-12-06 09:53:13 Test Item Value Reference Range Interpretation Comments MPV (test code = MPV) 7.5 7.4-10.4 [place] [address]-12-06 09:53:13 Test Item Value Reference Range Interpretation Comments Neutrophils # (test code = Neutrophils 7.2 1.5-8.1 #) [place] [address]-12-06 09:53:13 Test Item Value Reference Range Interpretation Comments Lymphocytes # (test code = Lymphocytes 0.9 1.0-5.5 #) [place] [address]-12-06 09:53:13 Test Item Value Reference Range Interpretation Comments Monocytes # (test code 0.5 See_Comment [Aut omated message] The = Monocytes #) system which generated this result tra nsmitted reference range : <=0.8. The reference r christiano was not used to int erpret this result as normal/abnormal . [place] [address]-12-06 09:53:13 Test Item Value Reference Range Interpretation Comments Basophils # (test code 0.1 See_Comment [Aut omated message] The = Basophils #) system which generated this result tra nsmitted reference range : <=0.2. The reference r christiano was not used to int erpret this result as normal/abnormal . [place] [address]-12-06 09:53:13 Test Item Value Reference Range Interpretation Comments Segs (test code = Segs) 83.0 45.0-75.0 [place] [address]-12-06 09:53:13 Test Item Value Reference Range Interpretation Comments Bands (test code = 0.0 See_Comment [Automat ed message] The Bands) system which ge nerated this result transmit sheba reference range : <=11.0. The reference r christiano was not used to interpr et this result as edy l/abnormal. [place] [address]-12-06 09:53:13 Test Item Value Reference Range Interpretation Comments Lymphocytes (test code = Lymphocytes) 10.0 20.0-40.0 [place] [address]-12-06 09:53:13 Test Item Value Reference Range Interpretation Comments Monocytes (test code = Monocytes) 6.0 2.0-12.0 [place] 511280-12-06 09:53:13 Test Item Value Reference Range Interpretation Comments Basophils (test code = 1.0 See_Comment [Aut omated message] The Basophils) system which ge nerated this result tra nsmitted reference range : <=1.0. The reference r christiano was not used to int erpret this result as normal/abnormal . [place] 511280-12-06 09:53:13 Test Item Value Reference Range Interpretation Comments Atypical Lymphs (test code = Atypical 0.0 Lymphs) [place] [address]-12-06 09:53:13 Test Item Value Reference Range Interpretation Comments RBC Morph (test code = Normal (09/05/20 3:53 RBC Morph) AM) [place] [address]-12-06 09:53:13 Test Item Value Reference Range Interpretation Comments Plt Morph (test code = Normal (09/05/20 3:53 Plt Morph) AM) [place] 604260-12-06 09:53:13 Test Item Value Reference Range Interpretation Comments Magnesium Lvl (test code = Magnesium 2.2 1.8-2.4 Lvl) [place] 604260-12-06 09:53:13 Test Item Value Reference Range Interpretation Comments Phosphorus (test code = Phosphorus) 2.9 2.5-4.5 [place] 604260-12-06 09:53:13 Test Item Value Reference Range Interpretation Comments Glucose Lvl (test code = Glucose Lvl) 102 70-99 [place] 604260-12-06 09:53:13 Test Item Value Reference Range Interpretation Comments BUN (test code = BUN) 17 7-22 [place] [address]-12-06 09:53:13 Test Item Value Reference Range Interpretation Comments Creatinine Lvl (test code = Creatinine 1.51 0.50-1.40 Lvl) [place] 604260-12-06 09:53:13 Test Item Value Reference Range Interpretation Comments Sodium Lvl (test code = Sodium Lvl) 140 135-145 [place] 604260-12-06 09:53:13 Test Item Value Reference Range Interpretation Comments Potassium Lvl (test code = Potassium 3.5 3.5-5.1 Lvl) [address]12-06 09:53:13 Test Item Value Reference Range Interpretation Comments Chloride Lvl (test code = Chloride Lvl) 106 95-109 [place] [address]-12-06 09:53:13 Test Item Value Reference Range Interpretation Comments CO2 (test code = CO2) 29 24-32 [address]12-06 09:53:13 Test Item Value Reference Range Interpretation Comments Calcium Lvl (test code = Calcium Lvl) 8.3 8.5-10.5 [address]12-06 09:53:13 Test Item Value Reference Range Interpretation Comments AGAP (test code = AGAP) 8.5 10.0-20.0 [address]12-06 09:53:13 Test Item Value Reference Range Interpretation Comments eGFR (test code = eGFR) 33 [place] [address]-12-06 09:53:13 Test Item Value Reference Range Interpretation Comments WBC (test code = WBC) 8.7 3.7-10.4 [place] [address]-12-06 09:53:13 Test Item Value Reference Range Interpretation Comments RBC (test code = RBC) 3.96 4.20-5.40 [place] [address]-12-06 09:53:13 Test Item Value Reference Range Interpretation Comments Hgb (test code = Hgb) 10.7 12.0-16.0 [place] [address]-12-06 09:53:13 Test Item Value Reference Range Interpretation Comments Hct (test code = Hct) 32.8 36.0-48.0 [place] [address]-12-06 09:53:13 Test Item Value Reference Range Interpretation Comments MCV (test code = MCV) 83.0 80.0-98.0 [address]12-06 09:53:13 Test Item Value Reference Range Interpretation Comments MCH (test code = MCH) 26.9 pg 27.0-31.0 [place] [address]-12-06 09:53:13 Test Item Value Reference Range Interpretation Comments MCHC (test code = MCHC) 32.4 32.0-36.0 [place] [address]-12-06 09:53:13 Test Item Value Reference Range Interpretation Comments RDW (test code = RDW) 16.5 11.5-14.5 [place] 511280-12-06 09:53:13 Test Item Value Reference Range Interpretation Comments Platelet (test code = Platelet) 157 133-450 [facility]644[facility]85 09:53:13 Test Item Value Reference Range Interpretation Comments MPV (test code = MPV) 7.5 7.4-10.4 [facility]puvolnNGPMCCGIGY8884-07-57 09:53:13 Test Item Value Reference Range Interpretation Comments Neutrophils # (test code = Neutrophils 7.2 1.5-8.1 #) [place] 511280-12-06 09:53:13 Test Item Value Reference Range Interpretation Comments Lymphocytes # (test code = Lymphocytes 0.9 1.0-5.5 #) [facility]irmsokFYAEZHYPNO8090-48-54 09:53:13 Test Item Value Reference Range Interpretation Comments Monocytes # (test code 0.5 See_Comment [Aut omated message] The = Monocytes #) system which generated this result tra nsmitted reference range : <=0.8. The reference r christiano was not used to int erpret this result as normal/abnormal . [facility]entonUpmkxcyCOITGQHPZC7084-89-50 09:53:13 Test Item Value Reference Range Interpretation Comments Basophils # (test code 0.1 See_Comment [Aut omated message] The = Basophils #) system which generated this result tra nsmitted reference range : <=0.2. The reference r christiano was not used to int erpret this result as normal/abnormal . [facility]entonHydfpppARJZAKRKMN0765-60-51 09:53:13 Test Item Value Reference Range Interpretation Comments Segs (test code = Segs) 83.0 45.0-75.0 [place] 511280-12-06 09:53:13 Test Item Value Reference Range Interpretation Comments Bands (test code = 0.0 See_Comment [Automat ed message] The Bands) system which ge nerated this result transmit sheba reference range : <=11.0. The reference r christiano was not used to interpr et this result as edy l/abnormal. [facility]entonWjhuzrrXQFWAQAXGF5074-75-97 09:53:13 Test Item Value Reference Range Interpretation Comments Lymphocytes (test code = Lymphocytes) 10.0 20.0-40.0 [place] [address]-12-06 09:53:13 Test Item Value Reference Range Interpretation Comments Monocytes (test code = Monocytes) 6.0 2.0-12.0 [place] [address]-12-06 09:53:13 Test Item Value Reference Range Interpretation Comments Basophils (test code = 1.0 See_Comment [Aut omated message] The Basophils) system which ge nerated this result tra nsmitted reference range : <=1.0. The reference r christiano was not used to int erpret this result as normal/abnormal . [place] 511280-12-06 09:53:13 Test Item Value Reference Range Interpretation Comments Atypical Lymphs (test code = Atypical 0.0 Lymphs) [place] [address]-12-06 09:53:13 Test Item Value Reference Range Interpretation Comments RBC Morph (test code = Normal (09/05/20 3:53 RBC Morph) AM) [place] [address]-12-06 09:53:13 Test Item Value Reference Range Interpretation Comments Plt Morph (test code = Normal (09/05/20 3:53 Plt Morph) AM) [place] 604260-12-06 09:53:13 Test Item Value Reference Range Interpretation Comments Magnesium Lvl (test code = Magnesium 2.2 1.8-2.4 Lvl) [place] 604260-12-06 09:53:13 Test Item Value Reference Range Interpretation Comments Phosphorus (test code = Phosphorus) 2.9 2.5-4.5 [place] 604260-12-06 09:53:13 Test Item Value Reference Range Interpretation Comments Glucose Lvl (test code = Glucose Lvl) 102 70-99 [place] 604260-12-06 09:53:13 Test Item Value Reference Range Interpretation Comments BUN (test code = BUN) 17 7-22 [place] [address]-12-06 09:53:13 Test Item Value Reference Range Interpretation Comments Creatinine Lvl (test code = Creatinine 1.51 0.50-1.40 Lvl) [place] 604260-12-06 09:53:13 Test Item Value Reference Range Interpretation Comments Sodium Lvl (test code = Sodium Lvl) 140 135-145 [place] 604260-12-06 09:53:13 Test Item Value Reference Range Interpretation Comments Potassium Lvl (test code = Potassium 3.5 3.5-5.1 Lvl) [place] 604260-12-06 09:53:13 Test Item Value Reference Range Interpretation Comments Chloride Lvl (test code = Chloride Lvl) 106 95-109 [place] [address]-12-06 09:53:13 Test Item Value Reference Range Interpretation Comments CO2 (test code = CO2) 29 24-32 [place] [address]-12-06 09:53:13 Test Item Value Reference Range Interpretation Comments Calcium Lvl (test code = Calcium Lvl) 8.3 8.5-10.5 [place] [address]-12-06 09:53:13 Test Item Value Reference Range Interpretation Comments AGAP (test code = AGAP) 8.5 10.0-20.0 [address]12-06 09:53:13 Test Item Value Reference Range Interpretation Comments eGFR (test code = eGFR) 33 [place] 511280-12-06 09:53:13 Test Item Value Reference Range Interpretation Comments WBC (test code = WBC) 8.7 3.7-10.4 [place] [address]-12-06 09:53:13 Test Item Value Reference Range Interpretation Comments RBC (test code = RBC) 3.96 4.20-5.40 [place] [address]-12-06 09:53:13 Test Item Value Reference Range Interpretation Comments Hgb (test code = Hgb) 10.7 12.0-16.0 [place] [address]-12-06 09:53:13 Test Item Value Reference Range Interpretation Comments Hct (test code = Hct) 32.8 36.0-48.0 [place] [address]-12-06 09:53:13 Test Item Value Reference Range Interpretation Comments MCV (test code = MCV) 83.0 80.0-98.0 [place] [address]-12-06 09:53:13 Test Item Value Reference Range Interpretation Comments MCH (test code = MCH) 26.9 pg 27.0-31.0 [place] [address]-12-06 09:53:13 Test Item Value Reference Range Interpretation Comments MCHC (test code = MCHC) 32.4 32.0-36.0 [address]12-06 09:53:13 Test Item Value Reference Range Interpretation Comments RDW (test code = RDW) 16.5 11.5-14.5 [address]12-06 09:53:13 Test Item Value Reference Range Interpretation Comments Platelet (test code = Platelet) 157 133-450 [address]12-06 09:53:13 Test Item Value Reference Range Interpretation Comments MPV (test code = MPV) 7.5 7.4-10.4 [address]12-06 09:53:13 Test Item Value Reference Range Interpretation Comments Neutrophils # (test code = Neutrophils 7.2 1.5-8.1 #) [address]12-06 09:53:13 Test Item Value Reference Range Interpretation Comments Lymphocytes # (test code = Lymphocytes 0.9 1.0-5.5 #) [address]12-06 09:53:13 Test Item Value Reference Range Interpretation Comments Monocytes # (test code 0.5 See_Comment [Aut omated message] The = Monocytes #) system which generated this result tra nsmitted reference range : <=0.8. The reference r christiano was not used to int erpret this result as normal/abnormal . [place] [address]-12-06 09:53:13 Test Item Value Reference Range Interpretation Comments Basophils # (test code 0.1 See_Comment [Aut omated message] The = Basophils #) system which generated this result tra nsmitted reference range : <=0.2. The reference r christiano was not used to int erpret this result as normal/abnormal . [place] [address]-12-06 09:53:13 Test Item Value Reference Range Interpretation Comments Segs (test code = Segs) 83.0 45.0-75.0 [address]12-06 09:53:13 Test Item Value Reference Range Interpretation Comments Bands (test code = 0.0 See_Comment [Automat ed message] The Bands) system which ge nerated this result transmit sheba reference range : <=11.0. The reference r christiano was not used to interpr et this result as edy l/abnormal. [address]12-06 09:53:13 Test Item Value Reference Range Interpretation Comments Lymphocytes (test code = Lymphocytes) 10.0 20.0-40.0 [place] [address]-12-06 09:53:13 Test Item Value Reference Range Interpretation Comments Monocytes (test code = Monocytes) 6.0 2.0-12.0 [place] [address]-12-06 09:53:13 Test Item Value Reference Range Interpretation Comments Basophils (test code = 1.0 See_Comment [Aut omated message] The Basophils) system which ge nerated this result tra nsmitted reference range : <=1.0. The reference r christiano was not used to int erpret this result as normal/abnormal . [place] 511280-12-06 09:53:13 Test Item Value Reference Range Interpretation Comments Atypical Lymphs (test code = Atypical 0.0 Lymphs) [place] [address]-12-06 09:53:13 Test Item Value Reference Range Interpretation Comments RBC Morph (test code = Normal (09/05/20 3:53 RBC Morph) AM) [place] [address]-12-06 09:53:13 Test Item Value Reference Range Interpretation Comments Plt Morph (test code = Normal (09/05/20 3:53 Plt Morph) AM) [facility]2020-12-06 09:53:13 Test Item Value Reference Range Interpretation Comments Magnesium Lvl (test code = Magnesium 2.2 1.8-2.4 Lvl) [place] 604260-12-06 09:53:13 Test Item Value Reference Range Interpretation Comments Phosphorus (test code = Phosphorus) 2.9 2.5-4.5 [place] 604260-12-06 09:53:13 Test Item Value Reference Range Interpretation Comments Glucose Lvl (test code = Glucose Lvl) 102 70-99 [place] 604260-12-06 09:53:13 Test Item Value Reference Range Interpretation Comments BUN (test code = BUN) 17 7-22 [place] 604260-12-06 09:53:13 Test Item Value Reference Range Interpretation Comments Creatinine Lvl (test code = Creatinine 1.51 0.50-1.40 Lvl) [place] 604260-12-06 09:53:13 Test Item Value Reference Range Interpretation Comments Sodium Lvl (test code = Sodium Lvl) 140 135-145 [address]12-06 09:53:13 Test Item Value Reference Range Interpretation Comments Potassium Lvl (test code = Potassium 3.5 3.5-5.1 Lvl) [place] [address]-12-06 09:53:13 Test Item Value Reference Range Interpretation Comments Chloride Lvl (test code = Chloride Lvl) 106 95-109 [place] [address]-12-06 09:53:13 Test Item Value Reference Range Interpretation Comments CO2 (test code = CO2) 29 24-32 [address]12-06 09:53:13 Test Item Value Reference Range Interpretation Comments Calcium Lvl (test code = Calcium Lvl) 8.3 8.5-10.5 [place] [address]-12-06 09:53:13 Test Item Value Reference Range Interpretation Comments AGAP (test code = AGAP) 8.5 10.0-20.0 [place] [address]-12-06 09:53:13 Test Item Value Reference Range Interpretation Comments eGFR (test code = eGFR) [address]12-06 09:53:13 Test Item Value Reference Range Interpretation Comments WBC (test code = WBC) 8.7 3.7-10.4 [place] [address]-12-06 09:53:13 Test Item Value Reference Range Interpretation Comments RBC (test code = RBC) 3.96 4.20-5.40 [place] [address]-12-06 09:53:13 Test Item Value Reference Range Interpretation Comments Hgb (test code = Hgb) 10.7 12.0-16.0 [place] [address]-12-06 09:53:13 Test Item Value Reference Range Interpretation Comments Hct (test code = Hct) 32.8 36.0-48.0 [address]12-06 09:53:13 Test Item Value Reference Range Interpretation Comments MCV (test code = MCV) 83.0 80.0-98.0 [address]12-06 09:53:13 Test Item Value Reference Range Interpretation Comments MCH (test code = MCH) 26.9 pg 27.0-31.0 [address]12-06 09:53:13 Test Item Value Reference Range Interpretation Comments MCHC (test code = MCHC) 32.4 32.0-36.0 [place] 511280-12-06 09:53:13 Test Item Value Reference Range Interpretation Comments RDW (test code = RDW) 16.5 11.5-14.5 [place] [address]-12-06 09:53:13 Test Item Value Reference Range Interpretation Comments Platelet (test code = Platelet) 157 133-450 [place] 511280-12-06 09:53:13 Test Item Value Reference Range Interpretation Comments MPV (test code = MPV) 7.5 7.4-10.4 [place] 511280-12-06 09:53:13 Test Item Value Reference Range Interpretation Comments Neutrophils # (test code = Neutrophils 7.2 1.5-8.1 #) [facility]KU8187[facility] 09:53:13 Test Item Value Reference Range Interpretation Comments Lymphocytes # (test code = Lymphocytes 0.9 1.0-5.5 #) [place] 511280-12-06 09:53:13 Test Item Value Reference Range Interpretation Comments Monocytes # (test code 0.5 See_Comment [Aut omated message] The = Monocytes #) system which generated this result tra nsmitted reference range : <=0.8. The reference r christiano was not used to int erpret this result as normal/abnormal . [place] [address]-12-06 09:53:13 Test Item Value Reference Range Interpretation Comments Basophils # (test code 0.1 See_Comment [Aut omated message] The = Basophils #) system which generated this result tra nsmitted reference range : <=0.2. The reference r christiano was not used to int erpret this result as normal/abnormal . [place] 511280-12-06 09:53:13 Test Item Value Reference Range Interpretation Comments Segs (test code = Segs) 83.0 45.0-75.0 [place] 511280-12-06 09:53:13 Test Item Value Reference Range Interpretation Comments Bands (test code = 0.0 See_Comment [Automat ed message] The Bands) system which ge nerated this result transmit sheba reference range : <=11.0. The reference r christiano was not used to interpr et this result as edy l/abnormal. [address]12-06 09:53:13 Test Item Value Reference Range Interpretation Comments Lymphocytes (test code = Lymphocytes) 10.0 20.0-40.0 [address]12-06 09:53:13 Test Item Value Reference Range Interpretation Comments Monocytes (test code = Monocytes) 6.0 2.0-12.0 [place] [address]-12-06 09:53:13 Test Item Value Reference Range Interpretation Comments Basophils (test code = 1.0 See_Comment [Aut omated message] The Basophils) system which ge nerated this result tra nsmitted reference range : <=1.0. The reference r christiano was not used to int erpret this result as normal/abnormal . [address]12-06 09:53:13 Test Item Value Reference Range Interpretation Comments Atypical Lymphs (test code = Atypical 0.0 Lymphs) [address]12-06 09:53:13 Test Item Value Reference Range Interpretation Comments RBC Morph (test code = Normal (09/05/20 3:53 RBC Morph) AM) [place] [address]-12-06 09:53:00 Test Item Value Reference Range Interpretation Comments Coronavirus (COVID-19) Not Detected (09/05/20 JONATHAN (test code = 3:53 AM) Coronavirus (COVID-19) JONATHAN) [address]12-06 09:53:00 Test Item Value Reference Range Interpretation Comments Coronavirus (COVID-19) Not Detected (09/05/20 JONATHAN (test code = 3:53 AM) Coronavirus (COVID-19) JONATHAN) [place] [address]-12-06 09:53:00 Test Item Value Reference Range Interpretation Comments Coronavirus (COVID-19) Not Detected (09/05/20 JONATHAN (test code = 3:53 AM) Coronavirus (COVID-19) JONATHAN) [place] [address]-12-06 09:53:00 Test Item Value Reference Range Interpretation Comments Coronavirus (COVID-19) Not Detected (09/05/20 JONATHAN (test code = 3:53 AM) Coronavirus (COVID-19) JONATHAN) [address]12-06 09:53:00 Test Item Value Reference Range Interpretation Comments Coronavirus (COVID-19) Not Detected (09/05/20 JONATHAN (test code = 3:53 AM) Coronavirus (COVID-19) JONATHAN) [id number] 04:34:00 Test Item Value Reference Range Interpretation Comments Troponin-I (test code no gt See_Comment [Auto mated message] The = Troponin-I) system which g enerated this result transmit sheba reference range : <=0.40. The reference r christiano was not used to interpr et this result as edy l/abnormal. [facility] [id number] 04:34:00 Test Item Value Reference Range Interpretation Comments Glucose Lvl (test code = Glucose Lvl) 125 70-99 [facility] [id number] 04:34:00 Test Item Value Reference Range Interpretation Comments BUN (test code = BUN) 17 7-22 [facility] [id number] 04:34:00 Test Item Value Reference Range Interpretation Comments Creatinine Lvl (test code = Creatinine 1.51 0.50-1.40 Lvl) [facility] [id number] 04:34:00 Test Item Value Reference Range Interpretation Comments Sodium Lvl (test code = Sodium Lvl) 142 135-145 [facility] [id number] 04:34:00 Test Item Value Reference Range Interpretation Comments Potassium Lvl (test code = Potassium 4.0 3.5-5.1 Lvl) [facility] [id number] 04:34:00 Test Item Value Reference Range Interpretation Comments Chloride Lvl (test code = Chloride Lvl) 108 95-109 [facility] [id number] 04:34:00 Test Item Value Reference Range Interpretation Comments CO2 (test code = CO2) 30 24-32 [facility] [id number] 04:34:00 Test Item Value Reference Range Interpretation Comments Calcium Lvl (test code = Calcium Lvl) 7.8 8.5-10.5 [facility] [id number] 04:34:00 Test Item Value Reference Range Interpretation Comments AGAP (test code = AGAP) 8.0 10.0-20.0 [facility]2020-12-06 04:34:00 Test Item Value Reference Range Interpretation Comments eGFR (test code = eGFR) 33 [place] 511280-12-06 04:34:00 Test Item Value Reference Range Interpretation Comments WBC X 10x3 (test code = WBC X 10x3) 9.7 3.7-10.4 [place] 511280-12-06 04:34:00 Test Item Value Reference Range Interpretation Comments RBC X 10x6 (test code = RBC X 10x6) 3.96 4.20-5.40 [place] 511280-12-06 04:34:00 Test Item Value Reference Range Interpretation Comments Hgb (test code = Hgb) 10.6 12.0-16.0 [place] 511280-12-06 04:34:00 Test Item Value Reference Range Interpretation Comments Hct (test code = Hct) 32.6 36.0-48.0 [id number] 04:34:00 Test Item Value Reference Range Interpretation Comments MCV (test code = MCV) 82.3 80.0-98.0 [place] 511280-12-06 04:34:00 Test Item Value Reference Range Interpretation Comments MCH (test code = MCH) 26.6 pg 27.0-31.0 [id number] 04:34:00 Test Item Value Reference Range Interpretation Comments MCHC (test code = MCHC) 32.4 32.0-36.0 [facility]entonYtrjavvMILQCQATYN4079-23-63 04:34:00 Test Item Value Reference Range Interpretation Comments RDW (test code = RDW) 16.8 11.5-14.5 [place] 511280-12-06 04:34:00 Test Item Value Reference Range Interpretation Comments Platelet (test code = Platelet) 178 133-450 [facility]JgdlbvzEPVQLULGXN4795-09-40 04:34:00 Test Item Value Reference Range Interpretation Comments MPV (test code = MPV) 8.0 7.4-10.4 [place] 511280-12-06 04:34:00 Test Item Value Reference Range Interpretation Comments PT (test code = PT) 14.7 s 12.0-14.7 [place] 511280-12-06 04:34:00 Test Item Value Reference Range Interpretation Comments INR (test code = INR) 1.14 1 0.85-1.17 [facility]entonGrycborTVJBGVAXVB3934-19-21 04:34:00 Test Item Value Reference Range Interpretation Comments PTT (test code = PTT) 31.2 s 22.9-35.8 [place] 511280-12-06 04:34:00 Test Item Value Reference Range Interpretation Comments Segs (test code = Segs) 73.9 45.0-75.0 [place] 511280-12-06 04:34:00 Test Item Value Reference Range Interpretation Comments Lymphocytes (test code = Lymphocytes) 11.0 20.0-40.0 [place] 511280-12-06 04:34:00 Test Item Value Reference Range Interpretation Comments Monocytes (test code = Monocytes) 13.6 2.0-12.0 [place] 511280-12-06 04:34:00 Test Item Value Reference Range Interpretation Comments Eosinophils (test code = 0.7 See_Comment [A utomated message] The Eosinophils) system which ge nerated this result tra nsmitted reference range : <=4.0. The reference r christiano was not used to int erpret this result as normal/abnormal . [facility]KiqjwbwFKYUIAQUOK7999-57-06 04:34:00 Test Item Value Reference Range Interpretation Comments Basophils (test code = 0.8 See_Comment [Aut omated message] The Basophils) system which ge nerated this result tra nsmitted reference range : <=1.0. The reference r christiano was not used to int erpret this result as normal/abnormal . [facility]entonWjvpsimBOTIRGIVSZ2858-01-82 04:34:00 Test Item Value Reference Range Interpretation Comments Neutrophils # (test code = Neutrophils 7.2 1.5-8.1 #) [place] 511280-12-06 04:34:00 Test Item Value Reference Range Interpretation Comments Lymphocytes # (test code = Lymphocytes 1.1 1.0-5.5 #) [place] 511280-12-06 04:34:00 Test Item Value Reference Range Interpretation Comments Monocytes # (test code 1.3 See_Comment [Aut omated message] The = Monocytes #) system which generated this result tra nsmitted reference range : <=0.8. The reference r christiano was not used to int erpret this result as normal/abnormal . [facility] CenterIwamaytYEMBQFOCGG3757-83-42 04:34:00 Test Item Value Reference Range Interpretation Comments Eosinophils # (test code 0.1 See_Comment [A utomated message] The = Eosinophils #) system whic h generated this result tra nsmitted reference range : <=0.5. The reference r christiano was not used to int erpret this result as normal/abnormal . [facility]wrJJCUDJBUTC5826-64-67 04:34:00 Test Item Value Reference Range Interpretation Comments Basophils # (test code 0.1 See_Comment [Aut omated message] The = Basophils #) system which generated this result tra nsmitted reference range : <=0.2. The reference r christiano was not used to int erpret this result as normal/abnormal . [facility] [id number] 04:34:00 Test Item Value Reference Range Interpretation Comments Troponin-I (test code no gt See_Comment [Auto mated message] The = Troponin-I) system which g enerated this result transmit sheba reference range : <=0.40. The reference r christiano was not used to interpr et this result as edy l/abnormal. [facility] [id number] 04:34:00 Test Item Value Reference Range Interpretation Comments Glucose Lvl (test code = Glucose Lvl) 125 70-99 [facility] [id number] 04:34:00 Test Item Value Reference Range Interpretation Comments BUN (test code = BUN) 17 7-22 [facility] [id number] 04:34:00 Test Item Value Reference Range Interpretation Comments Creatinine Lvl (test code = Creatinine 1.51 0.50-1.40 Lvl) [facility] [id number] 04:34:00 Test Item Value Reference Range Interpretation Comments Sodium Lvl (test code = Sodium Lvl) 142 135-145 [facility] [id number] 04:34:00 Test Item Value Reference Range Interpretation Comments Potassium Lvl (test code = Potassium 4.0 3.5-5.1 Lvl) [facility] [id number] 04:34:00 Test Item Value Reference Range Interpretation Comments Chloride Lvl (test code = Chloride Lvl) 108 95-109 [place] 604260-12-06 04:34:00 Test Item Value Reference Range Interpretation Comments CO2 (test code = CO2) 30 24-32 [place] 604260-12-06 04:34:00 Test Item Value Reference Range Interpretation Comments Calcium Lvl (test code = Calcium Lvl) 7.8 8.5-10.5 [place] 604260-12-06 04:34:00 Test Item Value Reference Range Interpretation Comments AGAP (test code = AGAP) 8.0 10.0-20.0 [place] 604260-12-06 04:34:00 Test Item Value Reference Range Interpretation Comments eGFR (test code = eGFR) 33 [facility]zrwnXSOEHQBUFX8944-30-29 04:34:00 Test Item Value Reference Range Interpretation Comments WBC X 10x3 (test code = WBC X 10x3) 9.7 3.7-10.4 [place] 511280-12-06 04:34:00 Test Item Value Reference Range Interpretation Comments RBC X 10x6 (test code = RBC X 10x6) 3.96 4.20-5.40 [place] 511280-12-06 04:34:00 Test Item Value Reference Range Interpretation Comments Hgb (test code = Hgb) 10.6 12.0-16.0 [place] 511280-12-06 04:34:00 Test Item Value Reference Range Interpretation Comments Hct (test code = Hct) 32.6 36.0-48.0 [facility]ttmvaYJZWFYZUUF0489-72-12 04:34:00 Test Item Value Reference Range Interpretation Comments MCV (test code = MCV) 82.3 80.0-98.0 [place] 511280-12-06 04:34:00 Test Item Value Reference Range Interpretation Comments MCH (test code = MCH) 26.6 pg 27.0-31.0 [place] 511280-12-06 04:34:00 Test Item Value Reference Range Interpretation Comments MCHC (test code = MCHC) 32.4 32.0-36.0 [place] 511280-12-06 04:34:00 Test Item Value Reference Range Interpretation Comments RDW (test code = RDW) 16.8 11.5-14.5 [place] 511280-12-06 04:34:00 Test Item Value Reference Range Interpretation Comments Platelet (test code = Platelet) 178 133-450 [place] [address]-12-06 04:34:00 Test Item Value Reference Range Interpretation Comments MPV (test code = MPV) 8.0 7.4-10.4 [place] 511280-12-06 04:34:00 Test Item Value Reference Range Interpretation Comments PT (test code = PT) 14.7 s 12.0-14.7 [place] [address]-12-06 04:34:00 Test Item Value Reference Range Interpretation Comments INR (test code = INR) 1.14 1 0.85-1.17 [place] [address]-12-06 04:34:00 Test Item Value Reference Range Interpretation Comments PTT (test code = PTT) 31.2 s 22.9-35.8 [place] [address]-12-06 04:34:00 Test Item Value Reference Range Interpretation Comments Segs (test code = Segs) 73.9 45.0-75.0 [place] 511280-12-06 04:34:00 Test Item Value Reference Range Interpretation Comments Lymphocytes (test code = Lymphocytes) 11.0 20.0-40.0 [place] 511280-12-06 04:34:00 Test Item Value Reference Range Interpretation Comments Monocytes (test code = Monocytes) 13.6 2.0-12.0 [place] [address]-12-06 04:34:00 Test Item Value Reference Range Interpretation Comments Eosinophils (test code = 0.7 See_Comment [A utomated message] The Eosinophils) system which ge nerated this result tra nsmitted reference range : <=4.0. The reference r christiano was not used to int erpret this result as normal/abnormal . [place] 511280-12-06 04:34:00 Test Item Value Reference Range Interpretation Comments Basophils (test code = 0.8 See_Comment [Aut omated message] The Basophils) system which ge nerated this result tra nsmitted reference range : <=1.0. The reference r christiano was not used to int erpret this result as normal/abnormal . [place] 511280-12-06 04:34:00 Test Item Value Reference Range Interpretation Comments Neutrophils # (test code = Neutrophils 7.2 1.5-8.1 #) [facility] CenterGfrvhjyEMWOIEPNYR2161-04-97 04:34:00 Test Item Value Reference Range Interpretation Comments Lymphocytes # (test code = Lymphocytes 1.1 1.0-5.5 #) [facility]KxmcgsaOAVSOLBNJF9198-35-63 04:34:00 Test Item Value Reference Range Interpretation Comments Monocytes # (test code 1.3 See_Comment [Aut omated message] The = Monocytes #) system which generated this result tra nsmitted reference range : <=0.8. The reference r christiano was not used to int erpret this result as normal/abnormal . [facility]entonGozfzprEQPQISKOWP8233-98-74 04:34:00 Test Item Value Reference Range Interpretation Comments Eosinophils # (test code 0.1 See_Comment [A utomated message] The = Eosinophils #) system whic h generated this result tra nsmitted reference range : <=0.5. The reference r christiano was not used to int erpret this result as normal/abnormal . [facility]entonMsbnvqnLOIELKMJZP8874-54-70 04:34:00 Test Item Value Reference Range Interpretation Comments Basophils # (test code 0.1 See_Comment [Aut omated message] The = Basophils #) system which generated this result tra nsmitted reference range : <=0.2. The reference r christiano was not used to int erpret this result as normal/abnormal . [facility] [id number] 04:34:00 Test Item Value Reference Range Interpretation Comments Troponin-I (test code no gt See_Comment [Auto mated message] The = Troponin-I) system which g enerated this result transmit sheba reference range : <=0.40. The reference r christiano was not used to interpr et this result as edy l/abnormal. [facility] [id number] 04:34:00 Test Item Value Reference Range Interpretation Comments Glucose Lvl (test code = Glucose Lvl) 125 70-99 [facility] [id number] 04:34:00 Test Item Value Reference Range Interpretation Comments BUN (test code = BUN) 17 7-22 [facility] [id number] 04:34:00 Test Item Value Reference Range Interpretation Comments Creatinine Lvl (test code = Creatinine 1.51 0.50-1.40 Lvl) [facility]2020-12-06 04:34:00 Test Item Value Reference Range Interpretation Comments Sodium Lvl (test code = Sodium Lvl) 142 135-145 [place] 604260-12-06 04:34:00 Test Item Value Reference Range Interpretation Comments Potassium Lvl (test code = Potassium 4.0 3.5-5.1 Lvl) [place] 604260-12-06 04:34:00 Test Item Value Reference Range Interpretation Comments Chloride Lvl (test code = Chloride Lvl) 108 95-109 [place] 604260-12-06 04:34:00 Test Item Value Reference Range Interpretation Comments CO2 (test code = CO2) 30 24-32 [place] 604260-12-06 04:34:00 Test Item Value Reference Range Interpretation Comments Calcium Lvl (test code = Calcium Lvl) 7.8 8.5-10.5 [place] 604260-12-06 04:34:00 Test Item Value Reference Range Interpretation Comments AGAP (test code = AGAP) 8.0 10.0-20.0 [place] 604260-12-06 04:34:00 Test Item Value Reference Range Interpretation Comments eGFR (test code = eGFR) 33 [place] 511280-12-06 04:34:00 Test Item Value Reference Range Interpretation Comments WBC X 10x3 (test code = WBC X 10x3) 9.7 3.7-10.4 [place] 511280-12-06 04:34:00 Test Item Value Reference Range Interpretation Comments RBC X 10x6 (test code = RBC X 10x6) 3.96 4.20-5.40 [place] [address]-12-06 04:34:00 Test Item Value Reference Range Interpretation Comments Hgb (test code = Hgb) 10.6 12.0-16.0 [place] [address]-12-06 04:34:00 Test Item Value Reference Range Interpretation Comments Hct (test code = Hct) 32.6 36.0-48.0 [place] [address]-12-06 04:34:00 Test Item Value Reference Range Interpretation Comments MCV (test code = MCV) 82.3 80.0-98.0 [address]12-06 04:34:00 Test Item Value Reference Range Interpretation Comments MCH (test code = MCH) 26.6 pg 27.0-31.0 [place] [address]-12-06 04:34:00 Test Item Value Reference Range Interpretation Comments MCHC (test code = MCHC) 32.4 32.0-36.0 [place] 511280-12-06 04:34:00 Test Item Value Reference Range Interpretation Comments RDW (test code = RDW) 16.8 11.5-14.5 [place] [address]-12-06 04:34:00 Test Item Value Reference Range Interpretation Comments Platelet (test code = Platelet) 178 133-450 [place] 511280-12-06 04:34:00 Test Item Value Reference Range Interpretation Comments MPV (test code = MPV) 8.0 7.4-10.4 [place] [address]-12-06 04:34:00 Test Item Value Reference Range Interpretation Comments PT (test code = PT) 14.7 s 12.0-14.7 [place] [address]-12-06 04:34:00 Test Item Value Reference Range Interpretation Comments INR (test code = INR) 1.14 1 0.85-1.17 [place] [address]-12-06 04:34:00 Test Item Value Reference Range Interpretation Comments PTT (test code = PTT) 31.2 s 22.9-35.8 [place] [address]-12-06 04:34:00 Test Item Value Reference Range Interpretation Comments Segs (test code = Segs) 73.9 45.0-75.0 [place] 511280-12-06 04:34:00 Test Item Value Reference Range Interpretation Comments Lymphocytes (test code = Lymphocytes) 11.0 20.0-40.0 [place] [address]-12-06 04:34:00 Test Item Value Reference Range Interpretation Comments Monocytes (test code = Monocytes) 13.6 2.0-12.0 [place] [address]-12-06 04:34:00 Test Item Value Reference Range Interpretation Comments Eosinophils (test code = 0.7 See_Comment [A utomated message] The Eosinophils) system which ge nerated this result tra nsmitted reference range : <=4.0. The reference r christiano was not used to int erpret this result as normal/abnormal . [facility]Kht[facility]pkIGTNAUGEEG7673-[facility]-32 04:34:00 Test Item Value Reference Range Interpretation Comments Basophils (test code = 0.8 See_Comment [Aut omated message] The Basophils) system which ge nerated this result tra nsmitted reference range : <=1.0. The reference r christiano was not used to int erpret this result as normal/abnormal . [facility]DldpibdSXOWLUYJWR2892-63-52 04:34:00 Test Item Value Reference Range Interpretation Comments Neutrophils # (test code = Neutrophils 7.2 1.5-8.1 #) [facility]entonSuhchzmQHHAEFOHOT9216-83-20 04:34:00 Test Item Value Reference Range Interpretation Comments Lymphocytes # (test code = Lymphocytes 1.1 1.0-5.5 #) [facility]entonBcdetbxLBEDLBIDWE9472-61-25 04:34:00 Test Item Value Reference Range Interpretation Comments Monocytes # (test code 1.3 See_Comment [Aut omated message] The = Monocytes #) system which generated this result tra nsmitted reference range : <=0.8. The reference r christiano was not used to int erpret this result as normal/abnormal . [facility]entonAdfgvpjPDSKMQQXPR4702-01-30 04:34:00 Test Item Value Reference Range Interpretation Comments Eosinophils # (test code 0.1 See_Comment [A utomated message] The = Eosinophils #) system whic h generated this result tra nsmitted reference range : <=0.5. The reference r christiano was not used to int erpret this result as normal/abnormal . [facility]entonDqosnuxOAXWORUWNT8474-41-87 04:34:00 Test Item Value Reference Range Interpretation Comments Basophils # (test code 0.1 See_Comment [Aut omated message] The = Basophils #) system which generated this result tra nsmitted reference range : <=0.2. The reference r christiano was not used to int erpret this result as normal/abnormal . [facility] [id number] 04:34:00 Test Item Value Reference Range Interpretation Comments Troponin-I (test code no gt See_Comment [Auto mated message] The = Troponin-I) system which g enerated this result transmit sheba reference range : <=0.40. The reference r christiano was not used to interpr et this result as edy l/abnormal. [place] 604260-12-06 04:34:00 Test Item Value Reference Range Interpretation Comments Glucose Lvl (test code = Glucose Lvl) 125 70-99 [place] 604260-12-06 04:34:00 Test Item Value Reference Range Interpretation Comments BUN (test code = BUN) 17 7-22 [place] 604260-12-06 04:34:00 Test Item Value Reference Range Interpretation Comments Creatinine Lvl (test code = Creatinine 1.51 0.50-1.40 Lvl) [place] 604260-12-06 04:34:00 Test Item Value Reference Range Interpretation Comments Sodium Lvl (test code = Sodium Lvl) 142 135-145 [place] 604260-12-06 04:34:00 Test Item Value Reference Range Interpretation Comments Potassium Lvl (test code = Potassium 4.0 3.5-5.1 Lvl) [place] 604260-12-06 04:34:00 Test Item Value Reference Range Interpretation Comments Chloride Lvl (test code = Chloride Lvl) 108 95-109 [place] 604260-12-06 04:34:00 Test Item Value Reference Range Interpretation Comments CO2 (test code = CO2) 30 24-32 [place] 604260-12-06 04:34:00 Test Item Value Reference Range Interpretation Comments Calcium Lvl (test code = Calcium Lvl) 7.8 8.5-10.5 [place] 604260-12-06 04:34:00 Test Item Value Reference Range Interpretation Comments AGAP (test code = AGAP) 8.0 10.0-20.0 [place] 604260-12-06 04:34:00 Test Item Value Reference Range Interpretation Comments eGFR (test code = eGFR) 33 [facility]entonPwbwslyFPRLMLLSYV7608-75-25 04:34:00 Test Item Value Reference Range Interpretation Comments WBC X 10x3 (test code = WBC X 10x3) 9.7 3.7-10.4 [place] 511280-12-06 04:34:00 Test Item Value Reference Range Interpretation Comments RBC X 10x6 (test code = RBC X 10x6) 3.96 4.20-5.40 [place] [address]-12-06 04:34:00 Test Item Value Reference Range Interpretation Comments Hgb (test code = Hgb) 10.6 12.0-16.0 [place] [address]-12-06 04:34:00 Test Item Value Reference Range Interpretation Comments Hct (test code = Hct) 32.6 36.0-48.0 [place] [address]-12-06 04:34:00 Test Item Value Reference Range Interpretation Comments MCV (test code = MCV) 82.3 80.0-98.0 [place] [address]-12-06 04:34:00 Test Item Value Reference Range Interpretation Comments MCH (test code = MCH) 26.6 pg 27.0-31.0 [place] [address]-12-06 04:34:00 Test Item Value Reference Range Interpretation Comments MCHC (test code = MCHC) 32.4 32.0-36.0 [place] [address]-12-06 04:34:00 Test Item Value Reference Range Interpretation Comments RDW (test code = RDW) 16.8 11.5-14.5 [place] [address]-12-06 04:34:00 Test Item Value Reference Range Interpretation Comments Platelet (test code = Platelet) 178 133-450 [facility]entonKusjtehFSIBCFVVLL9434-03-03 04:34:00 Test Item Value Reference Range Interpretation Comments MPV (test code = MPV) 8.0 7.4-10.4 [place] [address]-12-06 04:34:00 Test Item Value Reference Range Interpretation Comments PT (test code = PT) 14.7 s 12.0-14.7 [place] [address]-12-06 04:34:00 Test Item Value Reference Range Interpretation Comments INR (test code = INR) 1.14 1 0.85-1.17 [place] [address]-12-06 04:34:00 Test Item Value Reference Range Interpretation Comments PTT (test code = PTT) 31.2 s 22.9-35.8 [place] [address]-12-06 04:34:00 Test Item Value Reference Range Interpretation Comments Segs (test code = Segs) 73.9 45.0-75.0 [place] [address]-12-06 04:34:00 Test Item Value Reference Range Interpretation Comments Lymphocytes (test code = Lymphocytes) 11.0 20.0-40.0 [place] 511280-12-06 04:34:00 Test Item Value Reference Range Interpretation Comments Monocytes (test code = Monocytes) 13.6 2.0-12.0 [place] 511280-12-06 04:34:00 Test Item Value Reference Range Interpretation Comments Eosinophils (test code = 0.7 See_Comment [A utomated message] The Eosinophils) system which ge nerated this result tra nsmitted reference range : <=4.0. The reference r christiano was not used to int erpret this result as normal/abnormal . [facility]entonFbbpoelMYNCZYJXNL5228-35-19 04:34:00 Test Item Value Reference Range Interpretation Comments Basophils (test code = 0.8 See_Comment [Aut omated message] The Basophils) system which ge nerated this result tra nsmitted reference range : <=1.0. The reference r christiano was not used to int erpret this result as normal/abnormal . [facility]entonLuglkomRAEVCAAFCR5184-00-39 04:34:00 Test Item Value Reference Range Interpretation Comments Neutrophils # (test code = Neutrophils 7.2 1.5-8.1 #) [facility]entonKveyzojPLUDFNROSO4794-96-02 04:34:00 Test Item Value Reference Range Interpretation Comments Lymphocytes # (test code = Lymphocytes 1.1 1.0-5.5 #) [facility]entonRquiqaiHQQYACOXSF2139-18-08 04:34:00 Test Item Value Reference Range Interpretation Comments Monocytes # (test code 1.3 See_Comment [Aut omated message] The = Monocytes #) system which generated this result tra nsmitted reference range : <=0.8. The reference r christiano was not used to int erpret this result as normal/abnormal . [facility]entonYexaoadPBZEOJCNTO2127-69-28 04:34:00 Test Item Value Reference Range Interpretation Comments Eosinophils # (test code 0.1 See_Comment [A utomated message] The = Eosinophils #) system whic h generated this result tra nsmitted reference range : <=0.5. The reference r christiano was not used to int erpret this result as normal/abnormal . [facility]entonOpgvxuyHIKTWMPYXL7404-12-27 04:34:00 Test Item Value Reference Range Interpretation Comments Basophils # (test code 0.1 See_Comment [Aut omated message] The = Basophils #) system which generated this result tra nsmitted reference range : <=0.2. The reference r christiano was not used to int erpret this result as normal/abnormal . [facility] [employer] [id number] 04:34:00 Test Item Value Reference Range Interpretation Comments Troponin-I (test code no gt See_Comment [Auto mated message] The = Troponin-I) system which g enerated this result transmit sheba reference range : <=0.40. The reference r christiano was not used to interpr et this result as edy l/abnormal. [facility] [employer] [id number] 04:34:00 Test Item Value Reference Range Interpretation Comments Glucose Lvl (test code = Glucose Lvl) 125 70-99 [facility] T[employer] [id number] 04:34:00 Test Item Value Reference Range Interpretation Comments BUN (test code = BUN) 17 7-22 [facility] [employer]2020-12-06 04:34:00 Test Item Value Reference Range Interpretation Comments Creatinine Lvl (test code = Creatinine 1.51 0.50-1.40 Lvl) [facility] TES[employer] [id number] 04:34:00 Test Item Value Reference Range Interpretation Comments Sodium Lvl (test code = Sodium Lvl) 142 135-145 [facility] [employer] [id number] 04:34:00 Test Item Value Reference Range Interpretation Comments Potassium Lvl (test code = Potassium 4.0 3.5-5.1 Lvl) [facility] [employer] [id number] 04:34:00 Test Item Value Reference Range Interpretation Comments Chloride Lvl (test code = Chloride Lvl) 108 95-109 [facility] [employer]2020-12-06 04:34:00 Test Item Value Reference Range Interpretation Comments CO2 (test code = CO2) 30 24-32 [facility] [employer] [id number] 04:34:00 Test Item Value Reference Range Interpretation Comments Calcium Lvl (test code = Calcium Lvl) 7.8 8.5-10.5 [facility] [employer]2020-12-06 04:34:00 Test Item Value Reference Range Interpretation Comments AGAP (test code = AGAP) 8.0 10.0-20.0 [facility]2020-12-06 04:34:00 Test Item Value Reference Range Interpretation Comments eGFR (test code = eGFR) 33 [place] [address]-12-06 04:34:00 Test Item Value Reference Range Interpretation Comments WBC X 10x3 (test code = WBC X 10x3) 9.7 3.7-10.4 [facility]entonWdannazSBIGZGHBYJ4255-75-47 04:34:00 Test Item Value Reference Range Interpretation Comments RBC X 10x6 (test code = RBC X 10x6) 3.96 4.20-5.40 [place] 511280-12-06 04:34:00 Test Item Value Reference Range Interpretation Comments Hgb (test code = Hgb) 10.6 12.0-16.0 [place] 511280-12-06 04:34:00 Test Item Value Reference Range Interpretation Comments Hct (test code = Hct) 32.6 36.0-48.0 [facility]entonSnberwtFGVZBNYNAT7217-55-17 04:34:00 Test Item Value Reference Range Interpretation Comments MCV (test code = MCV) 82.3 80.0-98.0 [place] [address]-12-06 04:34:00 Test Item Value Reference Range Interpretation Comments MCH (test code = MCH) 26.6 pg 27.0-31.0 [facility]entonKmhccrpFGODJRHINC1791-47-06 04:34:00 Test Item Value Reference Range Interpretation Comments MCHC (test code = MCHC) 32.4 32.0-36.0 [facility]entonWoduqokAGBQNHEBOX9666-58-92 04:34:00 Test Item Value Reference Range Interpretation Comments RDW (test code = RDW) 16.8 11.5-14.5 [place] [address]-12-06 04:34:00 Test Item Value Reference Range Interpretation Comments Platelet (test code = Platelet) 178 133-450 [facility]entonHnqonspTWOALDWMEK3616-16-26 04:34:00 Test Item Value Reference Range Interpretation Comments MPV (test code = MPV) 8.0 7.4-10.4 [place] 511280-12-06 04:34:00 Test Item Value Reference Range Interpretation Comments PT (test code = PT) 14.7 s 12.0-14.7 [place] [address]-12-06 04:34:00 Test Item Value Reference Range Interpretation Comments INR (test code = INR) 1.14 1 0.85-1.17 [facility]entonGrggpyyJFICFSTERV8068-59-91 04:34:00 Test Item Value Reference Range Interpretation Comments PTT (test code = PTT) 31.2 s 22.9-35.8 [facility]entonDxiwtmrLDBUUUUYPZ2189-35-87 04:34:00 Test Item Value Reference Range Interpretation Comments Segs (test code = Segs) 73.9 45.0-75.0 [place] 511280-12-06 04:34:00 Test Item Value Reference Range Interpretation Comments Lymphocytes (test code = Lymphocytes) 11.0 20.0-40.0 [place] 511280-12-06 04:34:00 Test Item Value Reference Range Interpretation Comments Monocytes (test code = Monocytes) 13.6 2.0-12.0 [facility]entonKjfgtdpXILLUQKPQT2920-63-92 04:34:00 Test Item Value Reference Range Interpretation Comments Eosinophils (test code = 0.7 See_Comment [A utomated message] The Eosinophils) system which ge nerated this result tra nsmitted reference range : <=4.0. The reference r christiano was not used to int erpret this result as normal/abnormal . [facility]entonWtcibzcHESPWIAZIT5413-94-61 04:34:00 Test Item Value Reference Range Interpretation Comments Basophils (test code = 0.8 See_Comment [Aut omated message] The Basophils) system which ge nerated this result tra nsmitted reference range : <=1.0. The reference r christiano was not used to int erpret this result as normal/abnormal . [facility]entonUycqvmnAVMOUSRIAR1540-28-71 04:34:00 Test Item Value Reference Range Interpretation Comments Neutrophils # (test code = Neutrophils 7.2 1.5-8.1 #) [place] 511280-12-06 04:34:00 Test Item Value Reference Range Interpretation Comments Lymphocytes # (test code = Lymphocytes 1.1 1.0-5.5 #) [place] 511280-12-06 04:34:00 Test Item Value Reference Range Interpretation Comments Monocytes # (test code 1.3 See_Comment [Aut omated message] The = Monocytes #) system which generated this result tra nsmitted reference range : <=0.8. The reference r christiano was not used to int erpret this result as normal/abnormal . [id number] 04:34:00 Test Item Value Reference Range Interpretation Comments Eosinophils # (test code 0.1 See_Comment [A utomated message] The = Eosinophils #) system whic h generated this result tra nsmitted reference range : <=0.5. The reference r christiano was not used to int erpret this result as normal/abnormal . [id number] 04:34:00 Test Item Value Reference Range Interpretation Comments Basophils # (test code 0.1 See_Comment [Aut omated message] The = Basophils #) system which generated this result tra nsmitted reference range : <=0.2. The reference r christiano was not used to int erpret this result as normal/abnormal . [facility] SHOULDER 2+ VW [id number] 17:54:27 Comminuted distal clavicle fracture. EXAM: XR [...] in the aortic arch.IMPRESSIONComminuted distal clavicle fracture. [facility] [id number] 17:53:09 No acute bony abnormality. EXAM: XR FOREARM 2 VW RIGHT HISTORY: right arm pain COMPARISON: None. FINDINGS: Osteopenia is noted. 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 Mild osteoarthritic changes are present at theelbow. No acute fracture or dislocation is seen. [facility], Radiant Results Inft User - 06/28/2020 12:54 PM CDTEXAM:XR FOREARM 2 VW RIGHTHISTORY:right arm pain COMPARISON:None.FINDINGS: Osteopenia is noted. 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 Mild osteoarthritic changes are present at theelbow. No acute fracture or dislocation is seen.IMPRESSIONNo acute bony abnormality.[facility]
[2022-11-21] MEDS ORDERED: LIDOCAINE 1% MPF 5 ML VIAL ONE (00:01)
[2022-11-21] MEDS ORDERED: HYDROCODONE/APAP 5/325 MG TAB ONE (00:02)
[2022-11-21 01:37] LABS: Absolute Lymphocytes (CBC) 1.4 K/uL (0.7-4.9); Hematocrit 33.8 % (36.0-45.0); Lymphocytes % 20.1 % (15.3-44.8); MCV 90.1 fL (80-100); RBC Red Blood Cell Count 3.75 M/uL (3.86-4.86)
[2022-11-21 01:39] LABS: Protime INR 1.04
[2022-11-21 01:52] LABS: Albumin 3.2 g/dL (3.4-5.0); Bilirubin Total 0.3 mg/dL (0.2-1.0); Potassium 4.2 mmol/L (3.5-5.1); Protein, Total 6.7 g/dL (6.4-8.2)
--- NOTE | 2022-11-21 02:03 | ER ---
[facility] Name: Radha Bent[facility] Age: 82 yrs Sex: Female : 1940 Arrival Date: 11/20/2022 Time: 23:19 Bed 6 Private MD: Diagnosis: Traumatic subarachnoid hemorrhage;Scalp laceration Presentation: 11/20 23:20 Chief complaint: EMS states: Pt was in the shower and slipped hitting her head, no LOC, jb4 small amount of bleeding, no blood thinners. 23:20 Coronavirus screen: At this time, the client does not indicate any symptoms associated jb4 with coronavirus-19. Ebola Screen: No symptoms or risks identified at this time. Initial Sepsis Screen: Does the patient meet any 2 criteria? No. Patient's initial sepsis screen is negative. Does the patient have a suspected source of infection? No. Patient's initial sepsis screen is negative. Risk Assessment: Do you want to hurt yourself or someone else? Patient reports no desire to harm self or others. Onset of symptoms was November 20, 2022. Transition of care: patient was not received from another setting of care. 23:20 Method Of Arrival: EMS: [facility] jb4 23:20 Acuity: VAIBHAV 4 jb4 Historical: - Allergies: 23:20 Avelox; jb4 23:20 Band-aid adhesive; jb4 - Home Meds: 23:20 escitalopram oxalate Oral [Active]; Amlodipine [Active]; bupropion HCl Oral [Active]; jb4 gabapentin Oral [Active]; Lasix Oral [Active]; - PMHx: 23:20 COPD; Heart Murmur; Hyperlipidemia; Hypertension; Hypothyroidism; kidney disease; jb4 ADD/ADHD; - PSHx: 23:20 bilateral knee replacement; breast reduction; Cholecystectomy; Shoulder replacment; jb4 - Immunization history:: Adult Immunizations up to date. - Social history:: Smoking status: unknown. - Family history:: not pertinent. Screenin/21 01:11 [facility] ED Fall Risk Assessment (Adult) History of falling in the last 3 months, jb4 including since admission Yes- single mechanical fall (1 pt) Confusion or Disorientation No (0 pts) Score/Fall Risk Level 0 - 2 = Low Risk Oriented to surroundings, Maintained a safe environment. Abuse screen: Denies threats or abuse. Nutritional screening: No deficits noted. Tuberculosis screening: No symptoms or risk factors identified. Assessment: 11/20 23:20 General: Appears in no apparent distress. comfortable, Behavior is calm, cooperative, jb4 appropriate for age. Pain: Complains of pain in left parietal area Pain does not radiate. Pain currently is 8 out of 10 on a pain scale. Neuro: Level of Consciousness is awake, alert, obeys commands, Oriented to person, place, time, situation. Cardiovascular: Patient's skin is warm and dry. Respiratory: Airway is patent Respiratory effort is even, unlabored, Respiratory pattern is regular, symmetrical. GI: No signs and/or symptoms were reported involving the gastrointestinal system. : No signs and/or symptoms were reported regarding the genitourinary system. EENT: No signs and/or symptoms were reported regarding the EENT system. Derm: Skin is pink, warm \T\ dry. Laceration to the posterior scalp approximately 1inch in length. Musculoskeletal: Circulation, motion, and sensation intact. Range of motion: intact in all extremities. 11/21 00:14 Reassessment: Patient appears in no apparent distress at this time. Patient and/or jb4 family updated on plan of care and expected duration. Pain level reassessed. Patient is alert, oriented x 3, equal unlabored respirations, skin warm/dry/pink. 01:19 Reassessment: Patient appears in no apparent distress at this time. Patient and/or jb4 family updated on plan of care and expected duration. Pain level reassessed. Patient is alert, oriented x 3, equal unlabored respirations, skin warm/dry/pink. 02:09 Reassessment: Patient appears in no apparent distress at this time. Patient and/or jb4 family updated on plan of care and expected duration. Pain level reassessed. Patient is alert, oriented x 3, equal unlabored respirations, skin warm/dry/pink. Vital Signs: 11/20 23:20 BP 164 / 68; Pulse 85; Resp 16; Pulse Ox 100% on R/A; Weight 86.18 kg (R); Height 4 ft. jb4 11 in. (149.86 cm) (R); Pain 8/10; 11/21 01:19 BP 181 / 63; Pulse 61; Resp 16; Temp 97.3(TE); Pulse Ox 100% on R/A; jb4 02:09 BP 169 / 63; Pulse 64; Resp 17; Pulse Ox 93% on R/A; jb4 02:30 BP 127 / 45; Pulse 68; Resp 16 S; Pulse Ox 95% on R/A; as6 03:00 BP 145 / 70; Pulse 70; Resp 18 S; Pulse Ox 95% on R/A; as6 11/20 23:20 Body Mass Index 38.37 (86.18 kg, 149.86 cm) jb4 ED Course: 11/20 23:19 Patient arrived in ED. jb4 23:19 Ashish Morales MD is Attending Physician. rt 23:20 Arm band placed on right wrist. jb4 23:30 Johnnie Hernandez, ALAN is Primary Nurse. jb4 23:51 Triage completed. jb4 11/21 01:11 Assist provider with laceration repair on back of head that was between 2.6 to 7.5 cm jb4 using Steri-strips. Set up tray. Performed by Ashish Morales MD Patient tolerated well. 01:18 attempted to initiate transfer with [facility]. I was on hold for mw2 15 minutes and the phone call got disconnected. 01:32 attempted to initiate a transfer with [facility]. I have been on mw2 hold for over 20 minutes. 01:57 initiated a transfer with Michelle James from [facility]. mw2 02:[address] Morales with the Doctor from [facility]. mw2 02:01 administrative approval given by Michelle James/ patient has been accepted to [address] to the ER/ Dr. Flynn accepted the patient in transfer/report to be called to [phone]. 02:47 Inserted saline lock: 18 gauge in right antecubital area, using aseptic technique. as6 03:09 Placed in gown. Bed in low position. Call light in reach. Side rails up X2. as6 03:09 Patient transferred, IV remains in place. as6 Administered Medications: 00:00 Drug: HYDROcodone-acetaminophen 5 mg-325 mg 1 tabs Route: PO; jb4 03:07 Follow up: Response: No adverse reaction as6 01:11 Drug: Lidocaine (1 %) 5 ml Volume: 5 ml; Route: Infiltration; jb4 03:07 Follow up: Response: No adverse reaction as6 02:15 Drug: niCARdipine 5 mg/hr Route: IV; Rate: calculated rate; Site: left antecubital; jb4 03:08 Follow up: Response: No adverse reaction; IV Status: Infusion continued upon transfer as6 03:07 Drug: morphine 2 mg Route: IVP; Infused Over: 4 mins; Site: right antecubital; as6 03:08 Follow up: Response: No adverse reaction as6 Medication: 03:09 VIS not applicable for this client. as6 Outcome: 02:03 ER care complete, transfer ordered by . rt 03:09 Transferred by ground EMS to [facility], Transfer form completed. X-rays sent as6 w/ patient. 03:09 Condition: stable 03:09 Instructed on the need for transfer. 03:10 Patient left the ED. as6 Signatures: Johnnie Hernandez RN RN jb4 Caroline Mckoy 2 Bharat Palacios RN RN as6 Ashish Morales MD MD rt
--- NOTE | 2022-11-21 02:04 | EDPHYS ---
Physician Documentation [facility] Name: Radha Bentley Age: 82 yrs Sex: Female : 1940 Arrival Date: 11/20/2022 Time: 23:19 Bed 6 Private MD: ED Physician Ashish Morales HPI: 11/21 01:36 This 82 yrs old Female presents to ER via EMS with complaints of Head injury. rt 01:36 Patient presents to the ED with a mechanical fall in the shower, patient states that rt she slipped, hit the back of her head. She reports a headache. She denies any neck pain, loss of consciousness, other acute complaints. Symptoms are moderate in severity, no other aggravating alleviating factors.. Historical: - Allergies: 11/20 23:20 Avelox; jb4 23:20 Band-aid adhesive; jb4 - Home Meds: 23:20 escitalopram oxalate Oral [Active]; Amlodipine [Active]; bupropion HCl Oral [Active]; jb4 gabapentin Oral [Active]; Lasix Oral [Active]; - PMHx: 23:20 COPD; Heart Murmur; Hyperlipidemia; Hypertension; Hypothyroidism; kidney disease; jb4 ADD/ADHD; - PSHx: 23:20 bilateral knee replacement; breast reduction; Cholecystectomy; Shoulder replacment; jb4 - Immunization history:: Adult Immunizations up to date. - Social history:: Smoking status: unknown. - Family history:: not pertinent. ROS: 11/21 01:36 Constitutional: Negative for fever, chills, and weight loss, Eyes: Negative for injury, rt pain, redness, and discharge, Cardiovascular: Negative for chest pain, palpitations, and edema, Respiratory: Negative for shortness of breath, cough, wheezing, and pleuritic chest pain, Abdomen/GI: Negative for abdominal pain, nausea, vomiting, diarrhea, and constipation, Skin: Negative for injury, rash, and discoloration, Psych: Negative for depression, anxiety, suicide ideation, homicidal ideation, and hallucinations. Neuro: Positive for headache, Negative for altered mental status. Exam: 01:36 Constitutional: This is a well developed, well nourished patient who is awake, alert, rt and in no acute distress. Eyes: Pupils equal round and reactive to light, extra-ocular motions intact. Lids and lashes normal. Conjunctiva and sclera are non-icteric and not injected. Cornea within normal limits. Periorbital areas with no swelling, redness, or edema. Chest/axilla: Normal chest wall appearance and motion. Nontender with no deformity. No lesions are appreciated. Cardiovascular: Regular rate and rhythm with a normal S1 and S2. No gallops, murmurs, or rubs. Normal PMI, no JVD. No pulse deficits. Respiratory: Lungs have equal breath sounds bilaterally, clear to auscultation and percussion. No rales, rhonchi or wheezes noted. No increased work of breathing, no retractions or nasal flaring. Abdomen/GI: Soft, non-tender, with normal bowel sounds. No distension or tympany. No guarding or rebound. No evidence of tenderness throughout. Skin: Warm, dry with normal turgor. Normal color with no rashes, no lesions, and no evidence of cellulitis. MS/ Extremity: Pulses equal, no cyanosis. Neurovascular intact. Full, normal range of motion. Neuro: Awake and alert, GCS 15, oriented to person, place, time, and situation. Cranial nerves II-XII grossly intact. Motor strength 5/5 in all extremities. Sensory grossly intact. Cerebellar exam normal. Normal gait. Psych: Awake, alert, with orientation to person, place and time. Behavior, mood, and affect are within normal limits. 01:36 Head/face: 3 cm laceration posteriorly, no active bleeding, no other external evidence of trauma.. 01:36 ECG was reviewed by the Attending Physician. Vital Signs: 11/20 23:20 BP 164 / 68; Pulse 85; Resp 16; Pulse Ox 100% on R/A; Weight 86.18 kg (R); Height 4 ft. jb4 11 in. (149.86 cm) (R); Pain 8/10; 11/21 01:19 BP 181 / 63; Pulse 61; Resp 16; Temp 97.3(TE); Pulse Ox 100% on R/A; jb4 02:09 BP 169 / 63; Pulse 64; Resp 17; Pulse Ox 93% on R/A; jb4 02:30 BP 127 / 45; Pulse 68; Resp 16 S; Pulse Ox 95% on R/A; as6 03:00 BP 145 / 70; Pulse 70; Resp 18 S; Pulse Ox 95% on R/A; as6 11/20 23:20 Body Mass Index 38.37 (86.18 kg, 149.86 cm) jb4 Laceration: 01:36 Wound Repair of 3cm ( 1.2in ) subcutaneous laceration to scalp and back of head. Linear rt shaped.. Distal neuro/vascular/tendon intact. Anesthesia: Wound infiltrated with 2 mls of 1% lidocaine. Wound prep: Extensive cleansing by nurse. Skin closed with 4 3-0 Prolene using interrupted sutures and sterile technique. Patient tolerated well. MDM: 11/20 23:24 Patient medically screened. rt 11/21 01:36 Differential diagnosis: Contusion of Intracranial bleed- cerebral contusion. Data rt reviewed: vital signs, nurses notes, lab test result(s), EKG, radiologic studies. 01:36 I considered the following discharge prescriptions or medication management in the rt emergency department Medications were administered in the Emergency Department. See MAR. Discussion of test interpretation with radiology: I had a discussion with radiology regarding a test interpretation. Subarachnoid hemorrhage present. Counseling: I had a detailed discussion with the patient and/or guardian regarding: the historical points, exam findings, and any diagnostic results supporting the discharge/admit diagnosis, lab results, radiology results, the need to transfer to another facility. 11/21 01:13 Order name: CBC with Diff rt 11/21 01:13 Order name: CMP rt 11/21 01:13 Order name: Troponin High Sensitivity rt 11/21 01:13 Order name: PT-INR rt 11/21 01:13 Order name: Ptt, Activated rt 11/21 01:31 Order name: SARS RAPID rt 11/20 23:20 Order name: CT Head C Spine rt 11/21 01:39 Order name: Protime (+INR); Complete Time: 02:00 EDMS 11/21 01:39 Order name: PTT, Activated Partial Thromb; Complete Time: 02:00 EDMS 11/21 01:52 Order name: Comprehensive Metabolic Panel; Complete Time: 02:00 EDMS 11/21 01:52 Order name: Troponin High Sensitivity; Complete Time: 02:00 EDMS 11/21 01:59 Order name: CBC with Automated Diff; Complete Time: 02:00 EDMS 11/21 02:24 Order name: SARS-COV-2 Antigen Rapid EDMS 11/20 23:20 Order name: Wound Care; Complete Time: 00:09 rt 11/21 01:13 Order name: EKG; Complete Time: 01:14 rt 11/21 01:13 Order name: EKG - Nurse/Tech; Complete Time: 01:36 rt Administered Medications: 00:00 Drug: HYDROcodone-acetaminophen 5 mg-325 mg 1 tabs Route: PO; jb4 03:07 Follow up: Response: No adverse reaction as6 01:11 Drug: Lidocaine (1 %) 5 ml Volume: 5 ml; Route: Infiltration; jb4 03:07 Follow up: Response: No adverse reaction as6 02:15 Drug: niCARdipine 5 mg/hr Route: IV; Rate: calculated rate; Site: left antecubital; jb4 03:08 Follow up: Response: No adverse reaction; IV Status: Infusion continued upon transfer as6 03:07 Drug: morphine 2 mg Route: IVP; Infused Over: 4 mins; Site: right antecubital; as6 03:08 Follow up: Response: No adverse reaction as6 Disposition Summary: 11/21/22 02:03 Transfer Ordered Transfer Location: [facility] rt Reason: Higher level of care rt Condition: Serious rt Problem: new rt Symptoms: are unchanged rt Accepting Physician: Brayden(11/21/22 03:10) as6 Diagnosis - Traumatic subarachnoid hemorrhage rt - Scalp laceration rt Forms: - Medication Reconciliation Form rt - SBAR form rt Critical care time excluding procedures: 01:36 Critical care time: Bedside Care: 30 minutes, Consultation: 5 minutes. Total time: 35 rt minutes Signatures: Dispatcher [employer] EDJohnnie Huynh RN RN jb4 Bharat Palacios RN RN as6 Ashish Morales MD MD rt Corrections: (The following items were deleted from the chart) 03:10 02:03 Brayden rt as6
[2022-11-21] MEDS ORDERED: Nicardipine/NS 25 MG/250 ML KIT IV ONE (02:13)
[2022-11-21 02:24] LABS: SARS-CoV-2 Antigen Rapid Res Negative (Negative)
[2022-11-21] MEDS ORDERED: MORPHINE 2 MG/ML SYR ONE (03:05)
[2022-11-21 03:15] VITALS: TEMP 97.3
[2022-11-21 03:17] VITALS: O2SAT 95
[2022-11-21 03:18] VITALS: BP 145/70
--- NOTE | 2022-11-21 16:18 | EKG ---
Test Date: 2022-11-21 Test Time: 01:27:23 Engine Repairer: MANA MEASUREMENT RESULTS: Intervals: Rate: 61 NE: 296 QRSD: 124 QT: 468 QTc: 471 [place]: P: -18 NE: 296 QRS: 97 T: 23 INTERPRETIVE STATEMENTS: Sinus rhythm with 1st degree AV block Rightward axis Nonspecific intraventricular conduction delay Borderline ECG Compared to ECG 10/03/2022 14:45:53 Right-axis deviation now present Intraventricular conduction delay now present Sinus bradycardia no longer present Left-axis deviation no longer present Left ventricular hypertrophy no longer present Electronically Signed On 11-21-22 16:16:42 MANAGER PATIENT by Andre Arriaga
--- NOTE | 2022-11-21 17:41 | RAD REPORT ---
EXAM DESCRIPTION: ADDENDUM #1 THIS REPORT CONTAINS FINDINGS THAT MAY BE CRITICAL TO PATIENT CARE: The findings were verbally discu ssed via telephone conference with Dr. Ashish Morales on 11/21/2022 1:04 AM DAIRY LAB TECHNICIAN. The results were ack nowledged and understood. Electronically signed by: Herminio Ambrosio MD 11/21/2022 1:04 AM DAIRY LAB TECHNICIAN End of Addendum EXAM DESCRIPTION: CT Head and Cervical Spine Without Intravenous Contrast CLINICAL HISTORY: TRAUMA TECHNIQUE: Axial computed tomography images of the head/brain and cervical spine without intravenous contrast. Sagittal and coronal reformatted images were created and reviewed. This CT exam was pe rformed using one or more of the following dose reduction techniques: automated exposure control, a djustment of the mA and/or kV according to patient size, and/or use of iterative reconstruction techn ique. COMPARISON: CT Head Cervical Spine dated 07/27/2022 FINDINGS: Brain: Mild cerebral atrophy and mild to moderate bilateral periventricular and subcorti tania white matter low-attenuation most compatible with chronic microvascular angiopathy without signif icant interval change. There is a small amount of acute subarachnoid hemorrhage in the left parafal cine frontoparietal region. Ventricles: Unremarkable. No ventriculomegaly. Skull: No acute fracture. Sinuses: Mild to moderate left sphenoid sinus mucosal thickening. Mastoid air cells: Unremarkable as visualized. No mastoid effusion. Vertebrae: Grade 1 anterolisthesis of C2 on C3, C3 on C4 and C7 on T1 and grade 1 retrolisthesis of C5 on C6 similar to the prior. No acute fracture or subluxation. Discs/spinal canal/neural foramina: Multilevel degenerative changes most pronounced, moderate to se pk at C5-C6 and to a lesser extent at C4-C5 and C6-C7. No critical canal stenosis. Partial fusi on of the C3-C4 intervertebral disc. Fusion of the bilateral C3-C4 facet articulations. Soft tissues: Unremarkable. Vasculature: There is atherosclerotic disease of the internal carotid and vertebral arteries bilate rally. IMPRESSION: 1. Acute left parafalcine frontoparietal subarachnoid hemorrhage. 2. No cervical spine injury. 3. Other findings as above. Electronically signed by: Herminio Ambrosio MD 11/21/2022 12:48 AM DAIRY LAB TECHNICIAN Due to temporary technical issues with the PACS/Fluency reporting system, reports are being signed by the in house radiologists without review as a courtesy to insure prompt reporting. The interpreting radiologist is fully responsible for the content of the report.
== END 2022-11-21 03:10 | disposition short-term general hospital (02) ==
LOC: ER 23:15
PROC: 0HQ0XZZ Repair Scalp Skin, External Approach (ICD-10-PCS; principal; 2022-11-21)
DX: S06.6X0A Traumatic subarachnoid hemorrhage without loss of consciousness, initial encounter (principal); S01.01XA Laceration without foreign body of scalp, initial encounter; I10 Essential (primary) hypertension; J44.9 Chronic obstructive pulmonary disease, unspecified; Z20.822 Contact with and (suspected) exposure to COVID-19; Z88.6 Allergy status to analgesic agent; Z91.048 Other nonmedicinal substance allergy status; Z96.653 Presence of artificial knee joint, bilateral
CPT/HCPCS: 93005; 85025; 36415; 85610; 85730; 84484; 80053; 70450; 72125; 87811; 12002; J2270

== ENCOUNTER 2022-11-25 19:05 | Emergency (ER) | payer MEDICARE ==
--- NOTE | 2022-11-25 19:45 | RAD REPORT ---
EXAM DESCRIPTION: CT - Head Brain Wo Cont - 11/25/2022 7:37 pm CLINICAL HISTORY: TRAUMA COMPARISON: Facial Bones W/ Mpr dated 06/30/2020; Head Brain Wo Cont dated 05/10/2020; Head C Spine Mp r Wo Con dated 11/21/2022 TECHNIQUE: All CT scans are performed using dose optimization technique as appropriate and may inclu de automated exposure control or mA/KV adjustment according to patient size. FINDINGS: No new acute intracranial hemorrhage, hydrocephalus or extra-axial fluid collection.No are as of brain edema or evidence of midline shift. Parafalcine hemorrhage identified on the prior CT has mostly dispersed. No new hemorrhage. Circumferential thickened left sphenoid sinus. The calvarium is intact. IMPRESSION: Subarachnoid hemorrhage identified on the prior CT has mostly dispersed. No new hemorrha ge or acute intracranial abnormality is identified.
--- OUTSIDE RECORDS SUMMARY | 2022-11-25 19:45 | XMS REPORT | Continuity of Care Document ---
:1940 Author Organization [facility] t Address [address] [place] [address] Care Team Providers Name Role Phone SMILEY HOLDER Primary Care Physician Unavailable Anurag Sanderson Attending Clinician Unavailable PEREZ MORENO Attending Clinician Unavailable Perez Moreno Attending Clinician Allegra Laura Attending Clinician CARLY SINCLAIR Attending Clinician Unavailable Carly Sinclair DO Attending Clinician Sunny Attending Clinician Unavailable Jeffrey Garcia Attending Clinician Renetta_Hien_RADHA Attending Clinician Unavailable Caitlyn Jerez Attending Clinician [phone] Vincent Soni Attending Clinician Sariah Becerra Attending Clinician Yocasta CLAY, Maria Luisa Mosley Attending Clinician Timi Aguirre MD Attending Clinician TIMI AGUIRRE Attending Clinician Unavailable Physician, No Primary or Family Admitting Clinician Unavaila ble PEREZ MORENO Admitting Clinician Unavailable Perez Moreno Admitting Clinician CARLY SINCLAIR Admitting Clinician Unavailable Canales_M Admitting Clinician Unavailable Olivia-Mbayo_A_AH Admitting Clinician Unavailable Vincent Soni Admitting Clinician TIMI AGUIRRE Admitting Clinician Unavailable Payers Payer Name Policy Type Policy Number Effective Date Expiration Date S kristen [employer] [id number] 2020 00:00:00 [employer] [place] [id number] 2019 CLASSIC/VALUE 00:00:00 LoginRadius [id number] 2020 MEDICARE ADVANTAGE 00:00:00 PLAN [employer] HEALTH [id number] 2020 (MEDICARE 00:00:00 REPLACEMENT HMO) WELLCARE OF NH - [id number] 2019 [place] (MEDICARE 00:00:00 REPLACEMENT/ADVANTA GE - HMO) Problems Condition Condition Condition Status Onset Resolution Last Treating Co mments Source Name Details Category Date Date Treatment Clinician Date Acute Acute Diagnosis Active 2022-11-25 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: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 SUBARACHNO SUBARACHN Diagnosis Active 2022-11-23 Memoria ID OID 11-20 15:38:00 l HEMORRHAGE HEMORRHAGE 00:00: He rmann Active 00 11/20/2022 [facility] FALL FROM FALL FROM Diagnosis Active 2019-102020-09-16 Memoria STANDING STANDING 11-05 21:55:00 l Active 00:00: [place] 09/04/2020 [facility] S/P FALL, S/P FALL, Diagnosis Active 2019-102020-09-05 Memoria FRACTURED FRACTURED 2- 00:45:00 l RIGHT RIGHT 00:00: Raul WRIST, WRIST, 00 HEAD HE HEAD HE Active 09/04/2020 [facility] UNSPECIFIE UNSPECIFI Diagnosis Active 2020-09-16 Memoria D FALL, ED FALL, 21:55:00 l INITIAL INITIAL Raul ENCOUNTER ENCOUNTER Active [facility] 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 03:23:53 l disease disease Raul (disorder) (disorder) Active Problem 11/25/2022 [facility] Chronic Chronic Problem Active 2022-11-25 Me moria 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:23:53 l e lung e lung Raul disease disease (disorder) (disorder) Active Problem 11/25/2022 [facility] 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-25 Memoria disorder e disorder 03:23:53 l (disorder) (disorder) He rmann Active Problem 11/25/2022 [facility] 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 03:23:53 l (disorder) (disorder) He rmann Active Problem 11/25/2022 [facility] Hypertensi Hypertens Problem Active 2022-11-25 Memoria ve lyle 03:23:53 l disorder, disorder, Herm bernie systemic systemic arterial arterial (disorder) (disorder) Active Problem 11/25/2022 [facility] Hyperlipid Hyperlipi Problem Active 2022-11-25 Memoria emia demia 03:23:53 l (disorder) (disorder) He r[place] Active Problem 11/25/2022 [facility] Hypothyroi Hypothyro Problem Active 2022-11-25 Memoria dism idism 03:23:53 l (disorder) (disorder) He rmann Active Problem 11/25/2022 [facility] Memory Memory Problem Active 2022-11-25 Jose Francisco zhang impairment impairment 03:23:53 l (finding) (finding) Guerline bernie Active Problem 11/25/2022 [facility] Morbid Morbid Problem Active 2022-11-25 Jose Francisco zhang obesity obesity 03:23:53 l (disorder) (disorder) He rmann Active Problem 11/25/2022 [facility] Recurrent Recurrent Problem Active 2022-11-25 Memoria falls falls 03:23:53 l (finding) (finding) Herm bernie Active Problem 11/25/2022 [facility] Transient Transient Problem Active 2022-11-25 Memoria ischemic ischemic 03:23:53 l attack attack Raul (disorder) (disorder) Active Problem 11/25/2022 [facility] Tremor Tremor Problem Active 2022-11-25 Jose Francisco zhang (finding) (finding) 03:23:53 l Active Raul Problem 11/25/2022 [facility] [id number] 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 [facility] [id number] Primary Problem Comm on osteoarthr Spirit itis, - [facility] right [facility] foot [facility] [id number] Primary Problem 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 Allergies, Adverse Reactions, Alerts Allergy Allergy Status Severity Reaction(s) Onset Inactive Treating Comm ents Source Name Type Date Date Clinician ADHESIVE DRUG Active Med Rash Univers TAPE-DEBBY 8-30 ity of ICONES 00:00: [address] MOXIFLOX DRUG Active Med Rash 0 Univers ACIN HCL INGREDI 8-30 ity of 00:00: [place] [facility] Adhesive Propensi Active Rash Univer s Tape-Debby ty to 8-30 ity of icones adverse 00:00: [place] reaction 00 Medical s to Branch drug Moxiflox Propensi Active Rash Univer s acin Hcl ty to 8-30 ity of adverse 00:00: [place] reaction 00 Medical s to Branch drug moxiflox DA Active U [facility]ASH [facility] acin HCl 2-15 West 00:00: [address] BANDAIDS DA Active NM [facility] ADHESIVE 2-15 West 00:00: [address] Avelox Avelox Active Memoria l Raul Avelox Allergy Active Rash Devoted to Medical substanc Group e Social History Social Habit Start Date Stop Date Quantity Comments Source ASSERTION [facility] Alcohol Comment Occasional [facility] Dr[facility] History of Common Spirit - Tobacco Use [facility] Sex Assigned At Common Sp cristian - [facility] Exposure to 2022-07-26 2022-08-05 Not sure [facility] SARS-CoV-2 00:00:00 12:21:00 [facility] (event) [place] Alcohol intake 2022-08-05 2022-08-05 0 /d University of 00:00:00 00:00:[address] [facility] Social History 2020-09-05 2020-09-05 [facility] Dorothea najera 14:31:45 14:31:45 Tobacco use and 2020-06-28 2020-06-28 Never used Universit y of exposure 00:00:00 00:00:[address] [facility] Smoking Status Start Date Stop Date Source Tobacco smoking status 2022-11-21 11:47:30 2022-11-21 11:47:30 ryann Carter Never smoked tobacco [facility] Medications Ordered Filled Start Stop Current Ordering Indication Dosage Frequency Signature Comments Components Source Medication Medication Date Date Medication? Clinician (SIG) Name Name Tylenol Yes 1 tab, PO, Jose Francisco zhang with 2-22 Q6H, PRN l Codeine #3 19:14: Pain Score Dorothea reinaldo oral tablet 00 4-6, X 3 day, # 12 tab, 0 Refill(s), [facility]acy: [id number], 149.86, cm, 11/21/22 4:11:00 BIBLE READER, Height, 86.364, kg, 11/21/22 4:11:00 BIBLE READER, Weight gabapentin 2022-0 Yes 100 mg = 1 M emoria 100 mg oral 2-22 cap, PO, l capsule 19:13: Daily, # Ajay n 00 10 cap, 0 Refill(s), Pharmacy: [id number], 149.86, cm, 11/21/22 4:11:00 BIBLE READER, Height, 86.364, kg, 11/21/22 4:11:00 BIBLE READER, Weight Keppra 500 2022-0 Yes 500 mg = 1 M emoria mg oral 2-22 tab, PO, l tablet 19:13: Q12H, # 12 Jessie nn 00 tab, 0 Refill(s), Pharmacy: [facility] #[id number], 149.86, cm, 11/21/22 4:11:00 BIBLE READER, Height, 86.364, kg, 11/21/22 4:11:00 BIBLE READER, Weight methocarbam 0 Yes 500 mg = 1 Memoria ol 500 mg 2-22 tab, PO, l oral tablet 19:13: Q8H, X 10 H ermann 00 day, # 30 tab, 0 Refill(s), Pharmacy: [id number], 149.86, cm, 11/21/22 4:11:00 BIBLE READER, Height, 86.364, kg, 11/21/22 4:11:00 BIBLE READER, Weight Zofran 4 mg 2022-0 Yes 4 mg = 1 Me moria oral tablet 2-22 tab, PO, l 19:13: Q8H, PRN Raul 00 Nausea/vom iting, X 7 day, # 21 tab, 0 Refill(s), Pharmacy: [id number], 149.86, cm, 11/21/22 4:11:00 BIBLE READER, Height, 86.364, kg, 11/21/22 4:11:00 BIBLE READER, Weight Voltaren 2022-0 Yes 2 gm, TOP, Mem oria Topical 1% 2-21 QID, PRN, l topical gel 18:29: 0 Ajay n 00 Refill(s) Vitamin D2 2022-0 Yes 50,000 Memor ia 50,000 intl 2-21 IntlUnit = l units (1.25 18:29: 1 cap, PO, [place] mg) oral 00 qWeek, capsule then 1 cap qmonth, 0 Refill(s) fluocinonid Yes 1 appl, Mem oria e topical 2-21 TOP, BID, l 0.05% 18:28: 0 [place] solution 00 Refill(s) ketoconazol Yes 1 appl, Mem oria e topical 2-21 TOP, BID, l 2% cream 18:28: 0 [place] 00 Refill(s) halobetasol Yes 1 appl, Mem oria topical 2-21 TOP, BID, l 0.05% cream 18:28: PRN, 0 Herm bernie 00 Refill(s) levothyroxi Yes 112 Memori a ne 112 mcg 2-21 microgram l (0.112 mg) 18:27: = 1 tab, Her ivory oral tablet 00 PO, Daily, 0 Refill(s) Lasix 80 mg Yes 80 mg = 1 M emoria oral tablet 2-21 tab, PO, l 18:27: Daily, 0 Raul 00 Refill(s) Pepcid 40 Yes 40 mg = 1 Mem oria mg oral 2-21 tab, PO, l tablet 18:27: Bedtime, 0 Jessie nn 00 Refill(s) primidone Yes 50 mg = 1 Mem oria 50 mg oral 2-21 tab, PO, l tablet 18:27: Bedtime, 0 Jessie nn 00 Refill(s) ferrous Yes 325 mg = 1 Jose Francisco zhang sulfate 325 2-21 tab, PO, l mg oral 18:27: Daily, 0 Ajay n enteric 00 Refill(s) coated tablet donepezil Yes 10 mg = 1 Mem oria 10 mg oral 2-21 tab, PO, l tablet 18:26: Daily, 0 Raul 00 Refill(s) NIFEdipine Yes 30 mg = 1 Me moria (Eqv-Procar 2-21 tab, PO, l afua XL) 30 18:26: Daily, 0 Her ivory mg oral 00 Refill(s) tablet, extended release Kerendia 10 2023-0 Yes 10 mg = 1 M emoria mg oral 2-21 tab, PO, l tablet 18:26: Daily, 0 [place] 00 Refill(s) lovastatin 0 Yes 20 mg = 1 Me moria 20 mg oral 2-21 tab, PO, l tablet 18:26: Daily, 0 [place] 00 Refill(s) Coreg 25 mg 0 Yes 25 mg = 1 M emoria oral tablet 2-21 tab, PO, l 18:25: BID, 0 Raul 00 Refill(s) Lexapro 20 2022-0 Yes 20 mg = 1 Me moria mg oral 2-21 tab, PO, l tablet 18:25: BID, 0 [place] 00 Refill(s) rOPINIRole 0 Yes 4 mg = 1 Mem oria 4 mg oral 2-21 tab, PO, l tablet 18:25: BID, 0 [place] 00 Refill(s) pantoprazol Yes 40 mg = 1 M emoria e 40 mg 2-21 tab, PO, l oral 18:24: BID, 0 [place] enteric 00 Refill(s) coated tablet Wellbutrin Yes 150 mg = 1 M emoria SR 150 2-21 tab, PO, l mg/12 hours 18:23: BID, 0 Herm bernie oral 00 Refill(s) tablet, extended release albuterol 2021-10 No 5mg 5 mg, Univer s (PROVENTIL) 10-05 Inhalation i ty of 2.5 mg /3 18:15: 17:40 , [place]CE, [place] (0.083 00 :00 dose, On Medica l %) Sat [place] nebulizer 08/05/22 at solution 5 1315, DIMITRIS mg primidone Yes 50 mg = 1 Mem oria 50 mg oral 2-02 tab, PO, l tablet 20:46: Bedtime, # Jessie nn 00 90 tab, 2 Refill(s), Pharmacy: [id number], 149.86, cm, 11/02/21 14:32:00 BIBLE READER, Height, 90.455, kg, 11/02/21 14:32:00 BIBLE READER, Weight primidone 0 Yes 50 mg = 1 Mem oria 50 mg oral 2-02 tab, PO, l tablet 20:46: Bedtime, # Jessie nn 00 90 tab, 2 Refill(s), Pharmacy: [facility] #[id number], 149.86, cm, 11/02/21 14:32:00 BIBLE READER, Height, 90.455, kg, 11/02/21 14:32:00 BIBLE READER, Weight primidone 2021-0 Yes 50 mg = 1 Mem oria 50 mg oral 2-02 tab, PO, l tablet 20:46: Bedtime, # Jessie nn 00 90 tab, 2 Refill(s), Pharmacy: [id number], 149.86, cm, 11/02/21 14:32:00 BIBLE READER, Height, 90.455, kg, 11/02/21 14:32:00 BIBLE READER, Weight primidone 2021-0 Yes 50 mg = 1 Mem oria 50 mg oral 2-02 tab, PO, l tablet 20:46: Bedtime, # Jessie nn 00 90 tab, 2 Refill(s), Pharmacy: [id number], 149.86, cm, 11/02/21 14:32:00 BIBLE READER, Height, 90.455, kg, 11/02/21 14:32:00 BIBLE READER, Weight primidone 2021-0 Yes 50 mg = 1 Mem oria 50 mg oral 2-02 tab, PO, l tablet 20:46: Bedtime, # Jessie nn 00 90 tab, 2 Refill(s), Pharmacy: [id number], 149.86, cm, 11/02/21 14:32:00 BIBLE READER, Height, 90.455, kg, 11/02/21 14:32:00 BIBLE READER, Weight primidone 2021-0 Yes 50 mg = 1 Mem oria 50 mg oral 2-02 tab, PO, l tablet 20:46: Bedtime, # Jessie nn 00 90 tab, 2 Refill(s), Pharmacy: [id number], 149.86, cm, 11/02/21 14:32:00 BIBLE READER, Height, 90.455, kg, 11/02/21 14:32:00 BIBLE READER, Weight NIFEdipine 2-0 Yes TAKE 1 Memor ia (Eqv-Adalat 2-02 TABLET BY l CC) 30 mg 20:38: MOUTH [place] oral 00 EVERY DAY tablet, ON EMPTY extended STOMACH release FOR 30 DAYS Furosemide Yes TAKE 1 Memor ia 40 MG Oral 2-02 TABLET BY l Tablet 20:38: MOUTH [place] 00 EVERY DAY NEEDED FOR SWELLING tramadol Yes TAKE 1 Memoria hydrochlori 2-02 TABLET BY l de 50 MG 20:38: MOUTH [place] Oral Tablet 00 EVERY 6 TO 8 HOURS NEEDED predniSONE Yes TAKE 1 Memor ia 10 mg oral 2-02 TABLET BY l tablet 20:38: MOUTH [place] 00 EVERY DAY FOR 90 DAYS doxycycline [...] 2-02 TABLET BY l tablet 20:38: MOUTH [place] 00 THREE TIMES A DAY NIFEdipine Yes TAKE 1 Memor ia (Eqv-Adalat 2-02 TABLET BY l CC) 30 mg 20:38: MOUTH [place] oral 00 EVERY DAY tablet, ON EMPTY [...] CAPSULE BY l MG Oral 20:38: MOUTH [place] Capsule 00 TWICE A DAY Colestipol Yes TAKE 1 Memor ia Hydrochlori 2-02 TABLET BY l de 1000 MG 20:38: MOUTH Ajay n Oral Tablet 00 TWICE A DAY pantoprazol Yes TAKE 1 Jose Francisoc zhang e 40 mg 2-02 TABLET BY [...] 2-02 TABLET BY l Tablet 20:38: MOUTH [place] 00 EVERY DAY NEEDED FOR SWELLING tramadol Yes TAKE 1 Memoria hydrochlori 2-02 TABLET BY l de 50 MG 20:38: MOUTH [place] Oral Tablet 00 EVERY 6 TO 8 HOURS NEEDED predniSONE Yes TAKE 1 Memor ia 10 mg oral 2-02 TABLET BY l tablet 20:38: MOUTH [place] 00 EVERY DAY FOR 90 DAYS doxycycline Yes TAKE 1 Jose Francisco zhang hyclate 100 2-02 CAPSULE BY l MG Oral 20:38: MOUTH [place] Capsule 00 TWICE A DAY Colestipol Yes [...] BY l de 50 MG 20:38: MOUTH [place] Oral Tablet 00 EVERY 6 TO 8 HOURS NEEDED predniSONE Yes TAKE 1 Memor ia 10 mg oral 2-02 TABLET BY l tablet 20:38: MOUTH [place] 00 EVERY DAY FOR 90 DAYS doxycycline Yes TAKE 1 Jose Francisco zhang hyclate 100 2-02 CAPSULE BY l MG Oral 20:38: MOUTH [place] Capsule 00 TWICE A DAY Colestipol Yes [...] 2-02 TABLET BY l Tablet 20:38: MOUTH [place] 00 EVERY DAY NEEDED FOR SWELLING tramadol Yes TAKE 1 Memoria hydrochlori 2-02 TABLET BY l de 50 MG 20:38: MOUTH [place] Oral Tablet 00 EVERY 6 TO 8 HOURS NEEDED predniSONE Yes TAKE 1 Memor ia 10 mg oral 2-02 TABLET BY l tablet 20:38: MOUTH Raul 00 EVERY DAY FOR 90 DAYS doxycycline Yes TAKE 1 Jose Francisco zhang hyclate 100 2-02 CAPSULE BY l MG Oral 20:38: MOUTH [place] Capsule 00 TWICE A DAY Colestipol Yes TAKE 1 Memor ia Hydrochlori 2-02 TABLET BY l de 1000 MG 20:38: MOUTH Ajay n Oral Tablet 00 TWICE A DAY pantoprazol Yes TAKE 1 Jose Francisco zhang e 40 mg 2-02 TABLET BY l oral 20:38: MOUTH 2 [place] enteric 00 TIMES coated DAILY HALF tablet HOUR BEFORE BREAKFAST OR FIRST MEAL oxybutynin Yes TAKE 1 Memor ia 5 mg oral 2-02 TABLET BY l tablet 20:38: MOUTH Raul 00 THREE TIMES A DAY NIFEdipine Yes TAKE 1 Memor ia (Eqv-Adalat 2-02 TABLET BY l CC) 30 mg 20:38: MOUTH [place] oral 00 EVERY DAY tablet, ON EMPTY [...] CAPSULE BY l MG Oral 20:38: MOUTH [place] Capsule 00 TWICE A DAY Colestipol Yes [...] 2-02 TABLET BY l tablet 20:38: MOUTH [place] 00 THREE TIMES A DAY donepezil Yes = 1 tab, Jose Francisco zhang 10 mg oral 3-26 PO, Daily, l tablet 19:08: # 90 tab, Ajay n 00 1 Refill(s), Pharmacy: [id number], 149.86, cm, 12/24/20 13:59:00 CDT, Height, 93.182, kg, 12/24/20 13:59:00 CDT, Weight primidone Yes 50 mg = 1 Mem oria 50 mg oral 3-26 tab, PO, l tablet 19:08: Bedtime, # Jessie nn 00 90 tab, 2 Refill(s), Pharmacy: [id number], 149.86, cm, 12/24/20 13:59:00 CDT, Height, 93.182, kg, 12/24/20 13:59:00 CDT, Weight donepezil 2021-0 Yes = 1 tab, Jose Francisco zhang 10 mg oral 3-26 PO, Daily, l tablet 19:08: # 90 tab, Ajay n 00 1 Refill(s), Pharmacy: [facility] #[id number], 149.86, cm, 12/24/20 13:59:00 CDT, Height, 93.182, kg, 12/24/20 13:59:00 CDT, Weight primidone 2021-0 Yes 50 mg = 1 Mem oria 50 mg oral 3-26 tab, PO, l tablet 19:08: Bedtime, # Jessie nn 00 90 tab, 2 Refill(s), Pharmacy: [id number], 149.86, cm, 12/24/20 13:59:00 CDT, Height, 93.182, kg, 12/24/20 13:59:00 CDT, Weight donepezil 2020-0 Yes = 1 tab, Jose Francisco zhang 10 mg oral 3-26 PO, Daily, l tablet 19:08: # 90 tab, Ajay n 00 1 Refill(s), Pharmacy: [id number], 149.86, cm, 12/24/20 13:59:00 CDT, Height, 93.182, kg, 12/24/20 13:59:00 CDT, Weight primidone 2021-0 Yes 50 mg = 1 Mem oria 50 mg oral 3-26 tab, PO, l tablet 19:08: Bedtime, # Jessie nn 00 90 tab, 2 Refill(s), Pharmacy: [id number], 149.86, cm, 12/24/20 13:59:00 CDT, Height, 93.182, kg, 12/24/20 13:59:00 CDT, Weight donepezil 2021-0 Yes = 1 tab, Jose Francisco zhang 10 mg oral 3-26 PO, Daily, l tablet 19:08: # 90 tab, Ajay n 00 1 Refill(s), Pharmacy: [id number], 149.86, cm, 12/24/20 13:59:00 CDT, Height, 93.182, kg, 12/24/20 13:59:00 CDT, Weight primidone 1-0 Yes 50 mg = 1 Mem oria 50 mg oral 3-26 tab, PO, l tablet 19:08: Bedtime, # Jessie nn 00 90 tab, 2 Refill(s), Pharmacy: [id number], 149.86, cm, 12/24/20 13:59:00 CDT, Height, 93.182, kg, 12/24/20 13:59:00 CDT, Weight donepezil 2021-0 Yes = 1 tab, Jose Francisco zhang 10 mg oral 3-26 PO, Daily, l tablet 19:08: # 90 tab, Ajay n 00 1 Refill(s), Pharmacy: [id number], 149.86, cm, 12/24/20 13:59:00 CDT, Height, 93.182, kg, 12/24/20 13:59:00 CDT, Weight primidone 1-0 Yes 50 mg = 1 Mem oria 50 mg oral 3-26 tab, PO, l tablet 19:08: Bedtime, # Jessie nn 00 90 tab, 2 Refill(s), Pharmacy: [id number], 149.86, cm, 12/24/20 13:59:00 CDT, Height, 93.182, kg, 12/24/20 13:59:00 CDT, Weight donepezil 1-0 Yes = 1 tab, Jose Francisco zhang 10 mg oral 3-26 PO, Daily, l tablet 19:08: # 90 tab, Ajay n 00 1 Refill(s), Pharmacy: [id number], 149.86, cm, 12/24/20 13:59:00 CDT, Height, 93.182, kg, 12/24/20 13:59:00 CDT, Weight primidone 2021-0 Yes 50 mg = 1 Mem oria 50 mg oral 3-26 tab, PO, l tablet 19:08: Bedtime, # Jessie nn 00 90 tab, 2 Refill(s), Pharmacy: [id number], 149.86, cm, 12/24/20 13:59:00 CDT, Height, 93.182, kg, 12/24/20 13:59:00 CDT, Weight Lidocaine Lidocaine 1-0 No 10mg Com sun- Spirit 00:00: - [facility] 00 [facility] Celestone Celestone 2020-0 No 6mg Com mon Soluspan Soluspan 3-11 Spirit (Betamethas (Betamethas 00:00: - CHI one) one) 00 [facility] Lidocaine Lidocaine 2020-0 No 10mg Com 12-09 Spirit 00:00: - [facility]I 00 [facility] Celestone Celestone 2020-0 No 6mg Com mon Soluspan Soluspan 3-11 Spirit (Betamethas (Betamethas 00:00: - CHI one) one) 00 [facility] Lidocaine Lidocaine 2020-0 No 10mg Com 12-09 Spirit 00:00: - [facility]I 00 [facility] Celestone Celestone 2020-0 No 6mg Com mon Soluspan Soluspan 3-11 Spirit (Betamethas (Betamethas 00:00: - CHI one) one) 00 [facility] Lidocaine Lidocaine 2020-0 No 10mg Com 12-09 Spirit 00:00: - [facility]I 00 [facility] Celestone Celestone 2020-0 No 6mg Com mon Soluspan Soluspan 3-11 Spirit (Betamethas (Betamethas 00:00: - CHI one) one) 00 [facility] Lidocaine Lidocaine 2020-0 No 10mg Com 12-09 Spirit 00:00: - [facility]I 00 [facility] Celestone Celestone 2020-0 No 6mg Com mon Soluspan Soluspan 3-11 Spirit (Betamethas (Betamethas 00:00: - CHI one) one) 00 [facility] Lidocaine Lidocaine 1-0 No 10mg Com 12-09 Spirit 00:00: - [facility]I 00 [facility] Celestone Celestone 2020-0 No 6mg Com mon Soluspan Soluspan 3-11 Spirit (Betamethas (Betamethas 00:00: - CHI one) one) 00 [facility] Lidocaine Lidocaine 1-0 No 10mg Com 12-09 Spirit 00:00: - [facility]I 00 [facility] Celestone Celestone 2021-0 No 6mg Com mon Soluspan Soluspan 3-11 Spirit (Betamethas (Betamethas 00:00: - CHI one) one) 00 [facility] Lovastatin 2019-10 No 20 mg, 1 Mem oria 2-07 tab, l 03:00: Route: PO, [place] 00 Drug form: TAB, Bedtime, Dosing Weight 104.545, kg, Start date: 09/05/20 21:00:00 BIBLE READER, 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, Stop date: 10/04/20 21:00:00 BIBLE READER Primidone 2019-10 No Notes: Memori a 2-07 (Same as: l 03:00: Mysoline) Lipitor 2019-10 No Notes: Memoria 2-07 (Same As: l 03:00: Lipitor) Lovastatin 2019-10 No 20 mg, 1 Mem oria 2-07 tab, l 03:00: Route: PO, Raul 00 Drug form: TAB, Bedtime, Dosing Weight 104.545, kg, Start date: 09/05/20 21:00:00 BIBLE READER, 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, Stop date: 10/04/20 21:00:00 BIBLE READER Primidone 2019-10 No Notes: Memori a 2-07 (Same as: l 03:00: Mysoline) Lovastatin 2019-10 No 20 mg, 1 Mem oria 2-07 tab, l 03:00: Route: PO, Raul 00 Drug form: TAB, Bedtime, Dosing Weight 104.545, kg, Start date: 09/05/20 21:00:00 BIBLE READER, 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, Stop date: 10/04/20 21:00:00 BIBLE READER Primidone 2019-10 No Notes: Memori a 2-07 (Same as: l 03:00: Mysoline) Lipitor 2019-10 No Notes: Memoria 2-07 (Same As: l 03:00: Lipitor) Lipitor 2019-10 No Notes: Memoria 2-07 (Same As: l 03:00: Lipitor) Lovastatin 2019-10 No 20 mg, 1 Mem oria 2-07 tab, l 03:00: Route: PO, [place] 00 Drug form: TAB, Bedtime, Dosing Weight 104.545, kg, Start date: 09/05/20 21:00:00 BIBLE READER, 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, Stop date: 10/04/20 21:00:00 BIBLE READER Primidone 2019-10 No Notes: Memori a 2-07 (Same as: l 03:00: Mysoline) Lipitor 2019-10 No Notes: Memoria 2-07 (Same As: l 03:00: Lipitor) Lovastatin 2019-10 No 20 mg, 1 Mem oria 2-07 tab, l 03:00: Route: PO, Raul 00 Drug form: TAB, Bedtime, Dosing Weight 104.545, kg, Start date: 09/05/20 21:00:00 BIBLE READER, 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, Stop date: 10/04/20 21:00:00 BIBLE READER Primidone 2019-10 No Notes: Memori a 2-07 (Same as: l 03:00: Mysoline) Lipitor 2019-10 No Notes: Memoria 2-07 (Same As: l 03:00: Lipitor) Lovastatin 2019-10 No 20 mg, 1 Mem oria 2-07 tab, l 03:00: Route: PO, [place] 00 Drug form: TAB, Bedtime, Dosing Weight 104.545, kg, Start date: 09/05/20 21:00:00 BIBLE READER, 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, Stop date: 10/04/20 21:00:00 BIBLE READER Primidone 2019-10 No Notes: Memori a 2-07 (Same as: l 03:00: Mysoline) Lipitor 2019-10 No Notes: Memoria 2-07 (Same As: l 03:00: Lipitor) Acetaminoph 2019-10 Yes 500 mg = 1 Memoria en 500 MG 2-06 tab, PO, l Oral Tablet 18:51: Q6Hnow, 0 H ermann 00 Refill(s) Acetaminoph 2019- Yes 500 mg = 1 Memoria en [...] a 2-06 (Same as: l 15:00: Wellbutrin Raul 00 XL) "Do Not Crush" carvedilol 2019-10 [...] inhalation l 62.5 mcg-25 15:00: , [facility] , Drug powder Form: PWDR, Dosing Weight 104.545, kg, Daily, Start date: 09/05/20 9:00:00 BIBLE READER, 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, Stop date: 10/04/20 9:00:00 BIBLE READER gabapentin 2019-10 No Notes: Memor ia 300 MG Oral 2-06 (Same as: l Capsule 15:00: Neurontin) ropinirole 2019-10 No Notes: Memor ia 2-06 (Same as: l 15:00: Requip) Bupropion 2019-10 No Notes: Memori a 2-06 (Same as: l 15:00: Wellbutrin [place] 00 XL) "Do Not Crush" carvedilol 2019-10 No Notes: Memor ia 2-06 Give with l 15:00: food. (Same As: Coreg) donepezil 2019-10 No Notes: Memori a 2-06 (Same as: l 15:00: Aricept) Escitalopra 2019-10 No Notes: Jose Francisco zhang m 2-06 (Same as: l 15:00: Lexapro) Famotidine 2020-1 No Notes: Memor ia 20 MG Oral 2-06 (Same as: l Tablet 15:00: Pepcid) Anoro 2019-10 No 1 Memoria Ellipta 2-06 inhalation l 62.5 mcg-25 15:00: , Route: He rmann mcg 00 INHALATION inhalation , Drug powder Form: PWDR, Dosing Weight 104.545, kg, Daily, Start date: 09/05/20 9:00:00 BIBLE READER, 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, Stop date: 10/04/20 9:00:00 BIBLE READER gabapentin 2019-10 No Notes: Memor ia 300 MG Oral 2-06 (Same as: l Capsule 15:00: Neurontin) ropinirole 2019-10 No Notes: Memor ia 2-06 (Same as: l 15:00: Requip) Bupropion 2019-10 No Notes: Memori a 2-06 (Same as: l 15:00: Wellbutrin XL) "Do Not Crush" carvedilol 2019-10 No Notes: Memor ia 2-06 Give with l 15:00: food. Raul 00 (Same As: Coreg) donepezil 2019-10 No Notes: [...] 104.545, kg, Daily, Start date: 09/05/20 9:00:00 BIBLE READER, 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, Stop date: 10/04/20 9:00:00 BIBLE READER gabapentin 2019-10 No Notes: Memor ia 300 MG Oral 2-06 (Same as: l Capsule 15:00: Neurontin) ropinirole 2019-10 No Notes: Memor ia 2-06 (Same as: l 15:00: Requip) Bupropion 2019-10 No Notes: Memori a 2-06 (Same as: l 15:00: Wellbutrin [place] 00 XL) "Do Not Crush" carvedilol 2019-10 [...] 104.545, kg, Daily, Start date: 09/05/20 9:00:00 BIBLE READER, 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, Stop date: 10/04/20 9:00:00 BIBLE READER gabapentin 2019-10 No Notes: Memor ia 300 MG Oral 2-06 (Same as: l Capsule 15:00: Neurontin) ropinirole 2019-10 No Notes: Memor ia 2-06 (Same as: l 15:00: Requip) Bupropion 2019-10 No Notes: Memori a 2-06 (Same as: l 15:00: Wellbutrin [place] 00 XL) "Do Not Crush" carvedilol 2019-10 No Notes: Memor ia 2-06 Give with l 15:00: food. (Same As: Coreg) donepezil 2019-10 No Notes: Memori a 2-06 (Same as: l 15:00: Aricept) Escitalopra 2019-10 No Notes: Jose Francisco zhang m 2-06 (Same as: l 15:00: Lexapro) Famotidine 2019-10 No Notes: Memor ia 20 MG Oral 2-06 (Same as: l Tablet 15:00: Pepcid) Anoro 2020-1 No 1 Memoria Ellipta 2-06 inhalation l 62.5 mcg-25 15:00: , Route: He [place] mcg 00 INHALATION inhalation , Drug powder Form: PWDR, Dosing Weight 104.545, kg, Daily, Start date: 09/05/20 9:00:00 BIBLE READER, 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, Stop date: 10/04/20 9:00:00 BIBLE READER gabapentin 2019-10 No Notes: Memor ia 300 MG Oral 2-06 (Same as: l Capsule 15:00: Neurontin) ropinirole 2019-10 No Notes: Memor ia 2-06 (Same as: l 15:00: Requip) Famotidine 2019-10 No Notes: Memor ia 20 MG Oral 2-06 (Same as: l Tablet 15:00: Pepcid) Anoro 2019-10 No 1 Memoria Ellipta 2-06 inhalation l 62.5 mcg-25 15:00: , Route: He rmann mcg 00 INHALATION inhalation , Drug powder Form: PWDR, Dosing Weight 104.545, kg, Daily, Start date: 09/05/20 9:00:00 BIBLE READER, 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, Stop date: 10/04/20 9:00:00 BIBLE READER gabapentin 2019-10 No Notes: Memor ia 300 [...] m 2-06 (Same as: l 15:00: Lexapro) Streptococc 2019-10 No Notes: Jose Francisco zhang us 2-06 Shake well l pneumoniae 14:12: prior to Her ivory serotype 1 45 use (Same capsular as: antigen Prevnar diphtheria 13) [id number] protein conjugate vaccine / Streptococc us pneumoniae serotype 14 capsular antigen diphtheria [id number] protein conjugate vaccine / Streptococc us pneumoniae serotype 18C capsular antigen d Streptococc 2020- No Notes: Jose Francisco zhang us 2-06 Shake well l pneumoniae 14:12: prior to Her ivory serotype 1 45 use (Same capsular as: antigen Prevnar diphtheria 13) [id number] protein conjugate vaccine / Streptococc us pneumoniae serotype 14 capsular antigen diphtheria [id number] protein conjugate vaccine / Streptococc us pneumoniae serotype 18C capsular antigen d Streptococc 2019- No Notes: Jose Francisco zhang us 2-06 Shake well l pneumoniae 14:12: prior to Her ivory serotype 1 45 use (Same capsular as: antigen Prevnar diphtheria 13) [id number] protein conjugate vaccine / Streptococc us pneumoniae serotype 14 capsular antigen diphtheria [id number] protein conjugate vaccine / Streptococc us pneumoniae serotype 18C capsular antigen d Streptococc 2020- No Notes: Jose Francisco zhang us 2-06 Shake well l pneumoniae 14:12: prior to Her ivory serotype 1 45 use (Same capsular as: antigen Prevnar diphtheria 13) [id number] protein conjugate vaccine / Streptococc us pneumoniae serotype 14 capsular antigen diphtheria [id number] protein conjugate vaccine / Streptococc us pneumoniae serotype 18C capsular antigen d Streptococc 2019- No Notes: Jose Francisco zhang us 2-06 Shake well l pneumoniae 14:12: prior to Her ivory serotype 1 45 use (Same capsular as: antigen Prevnar diphtheria 13) [id number] protein conjugate vaccine / Streptococc us pneumoniae serotype 14 capsular antigen diphtheria [id number] protein conjugate vaccine / Streptococc us pneumoniae serotype 18C capsular antigen d Streptococc 2020- No Notes: Jose Francisco zhang us 2-06 Shake well l pneumoniae 14:12: prior to Her ivory serotype 1 45 use (Same capsular as: antigen Prevnar diphtheria 13) [id number] protein conjugate vaccine / Streptococc us pneumoniae serotype 14 capsular antigen diphtheria [id number] protein conjugate vaccine / Streptococc us pneumoniae serotype 18C capsular antigen d Thyroxine 2019-10 No Notes: Memori a 2-06 Take 1 l 14:00: hour [place] 00 before or 2 hours after meal; Enteral feeds may interefere with the absorption of this medication . (Same as:Levothr oid) Thyroxine 2019-10 No Notes: Memori a 2-06 Take 1 l 14:00: hour [place] 00 before or 2 hours after meal; Enteral feeds may interefere with the absorption of this medication . (Same as:Levothr oid) Thyroxine 2019-10 No Notes: Memori a 2-06 Take 1 l 14:00: hour [place] 00 before or 2 hours after meal; Enteral feeds may interefere with the absorption of this medication . (Same as:Levothr oid) Thyroxine 2019-10 No Notes: Memori a 2-06 Take 1 l 14:00: hour [place] 00 before or 2 hours after meal; Enteral feeds may interefere with the absorption of this medication . (Same as:Levothr oid) Thyroxine 2019-10 No Notes: Memori a 2-06 Take 1 l 14:00: hour [place] 00 before or 2 hours after meal; Enteral feeds may interefere with the absorption of this medication . (Same as:Levothr oid) Thyroxine 2019-10 No Notes: Memori a 2-06 Take 1 l 14:00: hour [place] 00 before or 2 hours after meal; Enteral feeds may interefere with the absorption of this medication . (Same as:Levothr oid) Iohexol 2019-1 No 100 mL, Memoria 11-06 Route: l 12:39: IVP, Drug [place] 00 Form: SOLN, Dosing Weight 104.545, kg, ONCALL, STAT, Start date: 09/05/20 6:39:00 BIBLE READER, Duration: 1 doses or times, Dose = 2.2ml/kg, Max dose = 100ml -- "To be infused by Radiology Staff ONLY" Iohexol 2019-1 No 100 mL, Memoria 11-06 Route: l 12:39: IVP, Drug [place] 00 Form: SOLN, Dosing Weight 104.545, kg, ONCALL, STAT, Start date: 09/05/20 6:39:00 BIBLE READER, Duration: 1 doses or times, Dose = 2.2ml/kg, Max dose = 100ml -- "To be infused by Radiology Staff ONLY" Iohexol 2020-1 No 100 mL, Memoria 2 Route: l 12:39: IVP, Drug [place] 00 Form: SOLN, Dosing Weight 104.545, kg, ONCALL, STAT, Start date: 09/05/20 6:39:00 BIBLE READER, Duration: 1 doses or times, Dose = 2.2ml/kg, Max dose = 100ml -- "To be infused by Radiology Staff ONLY" Iohexol 2020 No 100 mL, Memoria 2-06 Route: l 12:39: IVP, Drug [place] 00 Form: SOLN, Dosing Weight 104.545, kg, ONCALL, STAT, Start date: 09/05/20 6:39:00 BIBLE READER, Duration: 1 doses or times, Dose = 2.2ml/kg, Max dose = 100ml -- "To be infused by Radiology Staff ONLY" Iohexol 2019-10 No 100 mL, Memoria 2-06 Route: l 12:39: IVP, Drug [place] 00 Form: SOLN, Dosing Weight 104.545, kg, ONCALL, STAT, Start date: 09/05/20 6:39:00 BIBLE READER, Duration: 1 doses or times, Dose = 2.2ml/kg, Max dose = 100ml -- "To be infused by Radiology Staff ONLY" Iohexol 2019-10 No 100 mL, Memoria 2-06 Route: l 12:39: IVP, Drug [place] 00 Form: SOLN, Dosing Weight 104.545, kg, ONCALL, STAT, Start date: 09/05/20 6:39:00 BIBLE READER, Duration: 1 doses or times, Dose = 2.2ml/kg, Max dose = 100ml -- "To be infused by Radiology Staff ONLY" Acetaminoph 2019-10 No Notes: Max Memoria en 2-06 acetaminop l 07:00: hen 4000 [place] 00 mg/day (4 gm/day). (Same as: Tylenol [...] en 2-06 acetaminop l 07:00: hen 4000 [place] 00 mg/day (4 gm/day). (Same as: Tylenol Extra Strength) Acetaminoph 2019-10 No Notes: Max Memoria en 2-06 acetaminop l 07:00: hen 4000 [place] 00 mg/day (4 gm/day). (Same as: Tylenol Extra Strength) Acetaminoph 2019-10 No Notes: Max Memoria en 2-06 acetaminop l 07:00: hen 4000 [place] 00 mg/day (4 gm/day). (Same as: Tylenol [...] tab, PO, l tablet 06:48: Daily, # [place] 00 90 tab, 0 Refill(s) escitalopra 2019-10 [...] tab, PO, l Tablet 06:48: Daily, # [place] 00 60 tab, 1 Refill(s) Trelegy 2019-10 [...] l oral tablet 06:48: BID, # 180 [place] 00 tab, 1 Refill(s) amLODIPine 2019-10 Yes 10 mg = 1 Me moria 10 mg oral 2-06 tab, PO, l tablet 06:48: Daily, # [place] 00 90 tab, 0 Refill(s) escitalopra 2019-10 [...] tab, PO, l Tablet 06:48: Daily, # [place] 00 60 tab, 1 Refill(s) Trelegy 2019-10 [...] l oral tablet 06:48: BID, # 180 [place] 00 tab, 1 Refill(s) Oxycodone 2019-10 No [...] l oral tablet 06:48: BID, # 180 [place] 00 tab, 1 Refill(s) amLODIPine 2019-10 Yes 10 mg = 1 Me moria 10 mg oral 2-06 tab, PO, l tablet 06:48: Daily, # [place] 00 90 tab, 0 Refill(s) escitalopra 2019-10 [...] l oral tablet 06:48: BID, # 180 [place] 00 tab, 1 Refill(s) amLODIPine 2019-10 Yes 10 mg = 1 Me moria 10 mg oral 2-06 tab, PO, l tablet 06:48: Daily, # [place] 00 90 tab, 0 Refill(s) escitalopra 2019-10 [...] Blood Glucose Results, Start date: 09/05/20 0:47:00 BIBLE READER, 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, Stop date: 10/05/20 0:46:00 BIBLE READER, 0 Glucagon 2019-10 No 1 mg, Memoria 2- Route: IM, l 06:47: Drug form: PDR/INJ, PRN, Dosing Weight 104.545, kg, PRN Blood Glucose Results, Start date: 09/05/20 0:47:00 BIBLE READER, 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, Stop date: 10/05/20 0:46:00 BIBLE READER, 0 sennosides, 2019-10 No Notes: Jose Francisco zhang MCFP 2-06 (Same as: l 06:47: Senokot) POLYETHYLEN [...] Total Volume: 1,000, Start date: 09/05/20 0:47:00 BIBLE READER, Duration: 1 day, Stop date: 09/06/20 0:46:00 BIBLE READER, 1.97, m2, 0 Tums 2019-10 No Notes: [...] 0.65% 2-06 (Same as: l solution 06:47: [place], Deep Sea Nasal Hiller). Tessalon 2019-10 No Notes: Memoria Perles 2-06 (Same As: l 06:47: Tessalon Perles) "Do Not Crush" Guaifenesin 2019-10 No Notes: Jose Francisco zhang 2-06 (Same as: l 06:47: Organidin [place] 00 NR) Blistex 2019-10 No Notes: Memoria topical - Same as: l ointment 06:47: Blistex Ajay n 00 Albuterol 2019-10 No Notes: SEE Me moria 0.83 MG/ML 2-06 RT l Inhalant 06:47: DOCUMENTAT Her ivory Solution 00 ION (Same as: Proventil) Dextrose 2019-10 No 12.5 gm, Memor ia 50% Syringe 11-06 25 mL, l (D50W) 06:47: Route: Raul 00 IVP, Drug Form: INJ, Dosing Weight 104.545, kg, PRN, PRN Blood Glucose Results, Start date: 09/05/20 0:47:00 BIBLE READER, 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, Stop date: 10/05/20 0:46:00 BIBLE READER, 0 Glucagon 2019-10 No 1 mg, Memoria 11-06 Route: IM, l 06:47: Drug form: PDR/INJ, PRN, Dosing Weight 104.545, kg, PRN Blood Glucose Results, Start date: 09/05/20 0:47:00 BIBLE READER, 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, Stop date: 10/05/20 0:46:00 BIBLE READER, 0 sennosides, 2019-10 No Notes: Jose Francisco zhang MCFP 2- (Same as: l 06:47: Senokot) POLYETHYLEN 2019-10 No Notes: Jose Francisco zhang E GLYCOL 2- Dissolve l 3350 06:47: in 8 oz of water or juice. (Same as: Miralax) Ondansetron 2019-10 No Notes: Jose Francisco zhang 2-06 (Same as: l 06:47: Zofran) MEDICATION WASTE Product Size: 4 mg Product Wasted: ___ mg Melatonin 2019-10 No Notes: Memori a 2- (Same as: l 06:47: Melatonin) LR IV 1,000 2019-10 No 1,000 mL, M emoria mL 2-06 Rate: 100 l 06:47: ml/hr, Infuse over: 10 hr, Route: IV, Dosing Weight 104.545 kg, Total Volume: 1,000, Start date: 09/05/20 0:47:00 BIBLE READER, Duration: 1 day, Stop date: 09/06/20 0:46:00 BIBLE READER, 1.97, m2, 0 Tums 2019-10 No Notes: Memoria 2-06 (Same As: l 06:47: Tums) Calcium Carbonate 500 mg = 200 mg elemental calcium Dose = mg calcium carbonate ( mg elemental calcium) Simethicone 2019-10 No Notes: Jose Francisco zhang 2-06 (Same as: l 06:47: Mylicon) Lubricant 2019-10 No Notes: Memori a Eye Drops - (Same as: l 06:47: Aquasite) Nasal Moist 2019-10 No Notes: Jose Francisco zhang 0.65% 2- (Same as: l solution 06:47: [place], Raul 00 Deep Sea Nasal Hiller). Tessalon 2019-10 No Notes: Memoria Perles 2-06 (Same As: l 06:47: Tessalon Perles) "Do Not Crush" Guaifenesin 2019-10 No Notes: Jose Francisco zhang 2-06 (Same as: l 06:47: Organidin [place] 00 NR) Blistex 2019-10 No Notes: Memoria [...] Blood Glucose Results, Start date: 09/05/20 0:47:00 BIBLE READER, 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, Stop date: 10/05/20 0:46:00 BIBLE READER, 0 Glucagon 2019-10 No 1 mg, Memoria 2-06 Route: IM, l 06:47: Drug form: PDR/INJ, PRN, Dosing Weight 104.545, kg, PRN Blood Glucose Results, Start date: 09/05/20 0:47:00 BIBLE READER, 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, Stop date: 10/05/20 0:46:00 BIBLE READER, 0 sennosides, 2019-10 No Notes: Jose Francisco zhang MCFP 2-06 (Same as: l 06:47: Senokot) POLYETHYLEN [...] Total Volume: 1,000, Start date: 09/05/20 0:47:00 BIBLE READER, Duration: 1 day, Stop date: 09/06/20 0:46:00 BIBLE READER, 1.97, m2, 0 Tums 2019-10 No Notes: [...] 0.65% 2-06 (Same as: l solution 06:47: [place], Raul 00 Deep Sea Nasal Hiller). Tessalon 2019-10 No Notes: Memoria Perles 2- [...] 11-06 25 mL, l (D50W) 06:47: Route: Raul 00 IVP, Drug Form: INJ, Dosing Weight 104.545, kg, PRN, PRN Blood Glucose Results, Start date: 09/05/20 0:47:00 BIBLE READER, 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, Stop date: 10/05/20 0:46:00 BIBLE READER, 0 Glucagon 2019-10 No 1 mg, Memoria 11-06 Route: IM, l 06:47: Drug form: PDR/INJ, PRN, Dosing Weight 104.545, kg, PRN Blood Glucose Results, Start date: 09/05/20 0:47:00 BIBLE READER, 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, Stop date: 10/05/20 0:46:00 BIBLE READER, 0 sennosides, 2019-10 No Notes: Jose Francisco zhang MCFP 2-06 (Same as: l 06:47: Senokot) POLYETHYLEN [...] a 2-06 (Same as: l 06:47: Melatonin) Raul 00 LR IV 1,000 2019-10 No 1,000 mL, Keesha finch mL 2-06 Rate: 100 l 06:47: ml/hr, Infuse over: 10 hr, Route: IV, Dosing Weight 104.545 kg, Total Volume: 1,000, Start date: 09/05/20 0:47:00 BIBLE READER, Duration: 1 day, Stop date: 09/06/20 0:46:00 BIBLE READER, 1.97, m2, 0 Tums 2019-10 No Notes: [...] 0.65% 2- (Same as: l solution 06:47: [place], Raul 00 Deep Sea Nasal Hiller). Tessalon 2019-10 No Notes: Memoria Perles 2-06 (Same As: l 06:47: Tessalon Perles) "Do Not Crush" Guaifenesin 2019-10 No Notes: Jose Francisco zhang 2-06 (Same as: l 06:47: Organidin NR) Dextrose 2019-10 No 12.5 gm, Memor ia 50% Syringe 2-06 25 mL, l (D50W) 06:47: Route: IVP, Drug Form: INJ, Dosing Weight 104.545, kg, PRN, PRN Blood Glucose Results, Start date: 09/05/20 0:47:00 BIBLE READER, 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, Stop date: 10/05/20 0:46:00 BIBLE READER, 0 Glucagon 2019-10 No 1 mg, Memoria 2-06 Route: IM, l 06:47: Drug form: PDR/INJ, PRN, Dosing Weight 104.545, kg, PRN Blood Glucose Results, Start date: 09/05/20 0:47:00 BIBLE READER, 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, Stop date: 10/05/20 0:46:00 BIBLE READER, 0 sennosides, 2019-10 No Notes: Jose Francisco zhang MCFP 2-06 (Same as: l 06:47: Senokot) POLYETHYLEN 2019-10 No Notes: Jose Francisco zhang E GLYCOL 2-06 Dissolve l 3350 06:47: in 8 oz of Raul water or juice. (Same as: Miralax) Ondansetron 2019-10 No Notes: Jose Francisco zhang 2-06 (Same as: l 06:47: Zofran) MEDICATION WASTE Product Size: 4 mg Product Wasted: ___ mg Melatonin 2019-10 No Notes: Memori a 2-06 (Same as: l 06:47: Melatonin) Blistex 2019-10 No Notes: Memoria topical 2-06 Same as: l ointment 06:47: Blistex Ajay n 00 LR IV 1,000 2019-10 No 1,000 mL, M emoria mL 2-06 Rate: 100 l 06:47: ml/hr, Infuse over: 10 hr, Route: IV, Dosing Weight 104.545 kg, Total Volume: 1,000, Start date: 09/05/20 0:47:00 BIBLE READER, Duration: 1 day, Stop date: 09/06/20 0:46:00 BIBLE READER, 1.97, m2, 0 Tums 2019-10 No Notes: [...] 0.65% 2-06 (Same as: l solution 06:47: [place], Raul Deep Sea Nasal Hiller). Tessalon 2019-10 No Notes: Memoria Perles 2-06 (Same As: l 06:47: Tessalon [place] 00 Perles) "Do Not Crush" Guaifenesin 2019-10 No Notes: Jose Francisco zhang 2-06 (Same as: l 06:47: Organidin [place] 00 NR) Blistex 2019-10 No Notes: Memoria topical 2-06 Same as: l ointment 06:47: Blistex Ajay n 00 Albuterol 2019-10 No Notes: SEE Me moria 0.83 MG/ML 2-06 RT l Inhalant 06:47: DOCUMENTAT Her ivory Solution 00 ION (Same as: Proventil) Albuterol 2019-10 No Notes: SEE Me moria 0.83 MG/ML 2-06 RT l Inhalant 06:47: DOCUMENTAT Her ivory Solution 00 ION (Same as: Proventil) Dextrose 2019-10 No 12.5 gm, Memor ia 50% Syringe - 25 mL, l (D50W) 06:47: Route: IVP, Drug Form: INJ, Dosing Weight 104.545, kg, PRN, PRN Blood Glucose Results, Start date: 09/05/20 0:47:00 BIBLE READER, 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, Stop date: 10/05/20 0:46:00 BIBLE READER, 0 Glucagon 2019-10 No 1 mg, Memoria 11-06 Route: IM, l 06:47: Drug form: [place] 00 PDR/INJ, PRN, Dosing Weight 104.545, kg, PRN Blood Glucose Results, Start date: 09/05/20 0:47:00 BIBLE READER, 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, Stop date: 10/05/20 0:46:00 BIBLE READER, 0 sennosides, 2019-10 No Notes: Jose Francisco zhang MCFP 2-06 (Same as: l 06:47: Senokot) POLYETHYLEN [...] a 2-06 (Same as: l 06:47: Melatonin) Raul 00 LR IV 1,000 2019-10 No 1,000 mL, Keesha finch mL 2-06 Rate: 100 l 06:47: ml/hr, Infuse over: 10 hr, Route: IV, Dosing Weight 104.545 kg, Total Volume: 1,000, Start date: 09/05/20 0:47:00 BIBLE READER, Duration: 1 day, Stop date: 09/06/20 0:46:00 BIBLE READER, 1.97, m2, 0 Tums 2019-10 No Notes: [...] 0.65% 2-06 (Same as: l solution 06:47: [place], Raul 00 Deep Sea Nasal Hiller). Tessalon 2019-10 No Notes: Memoria Perles 2-06 (Same As: l 06:47: Tessalon Perles) "Do Not Crush" Guaifenesin 2019-10 No Notes: Jose Francisco zhang 2-06 (Same as: l 06:47: Organidin [place] 00 NR) Blistex 2019-10 No Notes: Memoria [...] zhang 2-06 (Same as: l 06:45: Apresoline [place] 00 ) Push over 5 minutes Hydralazine [...] Route: PO, l Hydrocodone 04:07: Drug Form: [place] Bitartrate 00 TAB, 5 MG Oral Dosing Tablet Weight 104.545, kg, ONCE, STAT, Start date: 09/04/20 22:07:00 BIBLE READER, Stop date: 09/04/20 22:07:00 BIBLE READER Acetaminoph 2019-10 No 1 tab, Jose Francisco zhang en 325 MG / 2-06 Route: PO, l Hydrocodone 04:07: Drug Form: [place] Bitartrate 00 TAB, 5 MG Oral Dosing Tablet Weight 104.545, kg, ONCE, STAT, Start date: 09/04/20 22:07:00 BIBLE READER, Stop date: 09/04/20 22:07:00 BIBLE READER Acetaminoph 2019-10 No 1 tab, Jose Francisco zhang en 325 MG / 2-06 Route: PO, l Hydrocodone 04:07: Drug Form: Raul Bitartrate 00 TAB, 5 MG Oral Dosing Tablet Weight 104.545, kg, ONCE, STAT, Start date: 09/04/20 22:07:00 BIBLE READER, Stop date: 09/04/20 22:07:00 BIBLE READER Acetaminoph 2019-10 No 1 tab, Jose Francisco zhang en 325 MG / 2-06 Route: PO, l Hydrocodone 04:07: Drug Form: [place] Bitartrate 00 TAB, 5 MG Oral Dosing Tablet Weight 104.545, kg, ONCE, STAT, Start date: 09/04/20 22:07:00 BIBLE READER, Stop date: 09/04/20 22:07:00 BIBLE READER Acetaminoph 2019-1 No 1 tab, Jose Francisco zhang en 325 MG / 06 Route: PO, l Hydrocodone 04:07: Drug Form: Raul Bitartrate 00 TAB, 5 MG Oral Dosing Tablet Weight 104.545, kg, ONCE, STAT, Start date: 09/04/20 22:07:00 BIBLE READER, Stop date: 09/04/20 22:07:00 BIBLE READER Acetaminoph 2019- No 1 tab, Jose Francisco zhang en 325 MG / 06 Route: PO, l Hydrocodone 04:07: Drug Form: [place] Bitartrate 00 TAB, 5 MG Oral Dosing Tablet Weight 104.545, kg, ONCE, STAT, Start date: 09/04/20 22:07:00 BIBLE READER, Stop date: 09/04/20 22:07:00 BIBLE READER HYDROcodone 2019- No 1{tbl} 1 tablet, [facility] -acetaminop 06-28 Oral, ity of hen (NORCO 20:30: 19:23 ONCE, 1 Carlos as 5) 5-325 mg 00 :00 dose, Mon Med ical tablet 1 06/28/20 at [facility] h tablet 1530, DIMITRIS metoprolol 2019- No [...] 06/28/20 at [facility] 1315, DIMITRIS FENTanyl PF 2019- No 25ug 25 mcg, Un martha (SUBLIMAZE 06-28 Slow IV ity o f (PF)) 18:15: 17:30 Push, [place] injection 00 :00 ONCE, 1 Medical 25 mcg dose, Mon [facility] 06/28/20 at 1315, STAT diphenoxyla 2020-0 Yes 1{tbl} Take 1 Un martha te-atropine 9-28 tablet by ity of (LOMOTIL) 17:14: mouth [place] 2.5-0.025 43 every 6 Medical mg tablet (six) Branch hours as needed. ALBUTEROL 2020-0 Yes Inhale. Unive rs SULFATE -28 ity of INHALE 17:14: [place] [id number] Medical Branch misoprostol 2020-0 2020- No 200ug Take 200 Univers (CYTOTEC) 06-28-28 mcg by ity of 200 mcg 17:13: 00:00 mouth [place] tablet 46 :00 daily. Medical Branch fenofibrate 2019-0 2020- No 145mg Take 145 Univers (TRICOR) 06-28-28 mg by ity of 145 mg 17:13: 00:00 mouth [place] tablet 14 :00 daily. Medical Branch diphenoxyla 2020-0 Yes 1{tbl} Take 1 Un martha te-atropine 9-28 tablet by ity of (LOMOTIL) 12:14: mouth [place] 2.5-0.025 43 every 6 Medical mg tablet (six) Branch hours as needed. ALBUTEROL 2020-0 Yes Inhale. Unive rs SULFATE - ity of INHALE 12:14: [address] Branch acetaminoph 2020-0 Yes [id number] 1{tbl} Take [...] Jessie nn 00 tab, 3 Refill(s), Pharmacy: [facility] #[id number], 149.86, cm, 05/25/20 13:41:00 CDT, Height, 95.455, kg, 05/25/20 13:41:00 CDT, Weight primidone 2020-0 Yes 50 mg = 1 Mem oria 50 mg oral 8-25 tab, PO, l tablet 19:03: BID, # 180 Jessie nn 00 tab, 3 Refill(s), Pharmacy: [facility] #[id number], 149.86, cm, 05/25/20 13:41:00 CDT, Height, 95.455, kg, 05/25/20 13:41:00 CDT, Weight primidone 2020-0 Yes 50 mg = 1 Mem oria 50 mg oral 8-25 tab, PO, l tablet 19:03: BID, # 180 Jessie nn 00 tab, 3 Refill(s), Pharmacy: [facility] #[id number], 149.86, cm, 05/25/20 13:41:00 CDT, Height, 95.455, kg, 05/25/20 13:41:00 CDT, Weight primidone 2020-0 Yes 50 mg = 1 Mem oria 50 mg oral 8-25 tab, PO, l tablet 19:03: BID, # 180 Jessie nn 00 tab, 3 Refill(s), Pharmacy: [facility] #[id number], 149.86, cm, 05/25/20 13:41:00 CDT, Height, 95.455, kg, 05/25/20 13:41:00 CDT, Weight primidone 2020-0 Yes 50 mg = 1 Mem oria 50 mg oral 8-25 tab, PO, l tablet 19:03: BID, # 180 Jessie nn 00 tab, 3 Refill(s), Pharmacy: [facility] #[id number], 149.86, cm, 05/25/20 13:41:00 CDT, Height, 95.455, kg, 05/25/20 13:41:00 CDT, Weight primidone 2020-0 Yes 50 mg = 1 Mem oria 50 mg oral 8-25 tab, PO, l tablet 19:03: BID, # 180 Jessie nn 00 tab, 3 Refill(s), Pharmacy: [facility] #[id number], 149.86, cm, 05/25/20 13:41:00 CDT, Height, 95.455, kg, 05/25/20 13:41:00 CDT, Weight primidone 2020-0 No 50 mg = 1 Mem oria 50 mg oral 6-25 tab, PO, l tablet 13:48: Bedtime, # Jessie nn 00 90 tab, 3 Refill(s), Pharmacy: [facility] #[id number], 149.86, cm, 03/24/20 9:12:00 CDT, Height, 90.909, kg, 03/24/20 9:12:00 CDT, Weight primidone 2020-0 No 50 mg = 1 Mem oria 50 mg oral 6-25 tab, PO, l tablet 13:48: Bedtime, # Jessie nn 00 90 tab, 3 Refill(s), Pharmacy: [facility] #[id number], 149.86, cm, 03/24/20 9:12:00 CDT, Height, 90.909, kg, 03/24/20 9:12:00 CDT, Weight primidone 2020-0 No 50 mg = 1 Mem oria 50 mg oral 6-25 tab, PO, l tablet 13:48: Bedtime, # Jessie nn 00 90 tab, 3 Refill(s), Pharmacy: [facility] #[id number], 149.86, cm, 03/24/20 9:12:00 CDT, Height, 90.909, kg, 03/24/20 9:12:00 CDT, Weight primidone 2020-0 No 50 mg = 1 Mem oria 50 mg oral 6-25 tab, PO, l tablet 13:48: Bedtime, # Jessie nn 00 90 tab, 3 Refill(s), Pharmacy: [facility] #[id number], 149.86, cm, 03/24/20 9:12:00 [...] nn 00 90 tab, 3 Refill(s), Pharmacy: [facility] #[id number], 149.86, cm, 03/24/20 9:12:00 CDT, Height, 90.909, kg, 03/24/20 9:12:00 CDT, Weight donepezil 2020-0 Yes 10 mg = 1 Mem oria 10 mg oral 6-24 tab, PO, l tablet 14:32: Daily, # [place] 00 30 tab, 3 Refill(s), Pharmacy: [facility] #[id number], 149.86, cm, 03/24/20 9:12:00 CDT, Height, 90.909, kg, 03/24/20 9:12:00 CDT, Weight primidone 2020-0 No 50 mg = 1 Mem oria 50 mg oral 6-24 tab, PO, l tablet 14:32: Bedtime, X Jessie nn 30 day, # 30 tab, 3 Refill(s), Pharmacy: [facility] #[id number], 149.86, cm, 03/24/20 9:12:00 CDT, Height, 90.909, kg, 03/24/20 9:12:00 CDT, Weight donepezil 2020-0 Yes 10 mg = 1 Mem oria 10 mg oral 6-24 tab, PO, l tablet 14:32: Daily, # [place] 00 30 tab, 3 Refill(s), Pharmacy: [facility] #[id number], 149.86, cm, 03/24/20 9:12:00 CDT, Height, 90.909, kg, 03/24/20 9:12:00 CDT, Weight primidone 2020-0 No 50 mg = 1 Mem oria 50 mg oral 6-24 tab, PO, l tablet 14:32: Bedtime, X Jessie nn 30 day, # 30 tab, 3 Refill(s), Pharmacy: [facility] #[id number], 149.86, cm, 03/24/20 9:12:00 CDT, Height, 90.909, kg, 03/24/20 9:12:00 CDT, Weight donepezil 2020-0 Yes 10 mg = 1 Mem oria 10 mg oral 6-24 tab, PO, l tablet 14:32: Daily, # [place] 00 30 tab, 3 Refill(s), Pharmacy: [facility] #[id number], 149.86, cm, 03/24/20 9:12:00 CDT, Height, 90.909, kg, 03/24/20 9:12:00 CDT, Weight primidone 2020-0 No 50 mg = 1 Mem oria 50 mg oral 6-24 tab, PO, l tablet 14:32: Bedtime, X Jessie nn 30 day, # 30 tab, 3 Refill(s), Pharmacy: [facility] #[id number], 149.86, cm, 03/24/20 9:12:00 CDT, Height, 90.909, kg, 03/24/20 9:12:00 CDT, Weight donepezil 2020-0 Yes 10 mg = 1 Mem oria 10 mg oral 6-24 tab, PO, l tablet 14:32: Daily, # [place] 00 30 tab, 3 Refill(s), Pharmacy: [facility] #[id number], 149.86, cm, 03/24/20 9:12:00 CDT, Height, 90.909, kg, 03/24/20 9:12:00 CDT, Weight primidone 2020-0 No 50 mg = 1 Mem oria 50 mg oral 6-24 tab, PO, l tablet 14:32: Bedtime, X Jessie nn 30 day, # 30 tab, 3 Refill(s), Pharmacy: [facility] #[id number], 149.86, cm, 03/24/20 9:12:00 CDT, Height, 90.909, kg, 03/24/20 9:12:00 CDT, Weight donepezil 2020-0 Yes 10 mg = 1 Mem oria 10 mg oral 6-24 tab, PO, l tablet 14:32: Daily, # [place] 00 30 tab, 3 Refill(s), Pharmacy: [facility] #[id number], 149.86, cm, 03/24/20 9:12:00 CDT, Height, 90.909, kg, 03/24/20 9:12:00 CDT, Weight primidone 2020-0 No 50 mg = 1 Mem oria 50 mg oral 6-24 tab, PO, l tablet 14:32: Bedtime, X Jessie nn 30 day, # 30 tab, 3 Refill(s), Pharmacy: [facility] #[id number], 149.86, cm, 03/24/20 9:12:00 CDT, Height, 90.909, kg, 03/24/20 9:12:00 CDT, Weight donepezil 2020-0 Yes 10 mg = 1 Mem oria 10 mg oral 6-24 tab, PO, l tablet 14:32: Daily, # [place] 00 30 tab, 3 Refill(s), Pharmacy: [facility] #[id number], 149.86, cm, 03/24/20 9:12:00 CDT, Height, 90.909, kg, 03/24/20 9:12:00 CDT, Weight primidone No 50 mg = 1 Mem oria 50 mg oral 6-24 tab, PO, l tablet 14:32: Bedtime, X Jessie nn day, # 30 tab, 3 Refill(s), Pharmacy: [facility] #[id number], 149.86, cm, 03/24/20 9:12:00 CDT, Height, 90.909, kg, 03/24/20 9:12:00 CDT, Weight sucralfate 2019- Yes [id number][in_ Apply 0.25 [facility] malate, 02-18 us] Inches as ity of polymerized 00:00: directed 4 [place] 1 gram/10 00 (four) Medical mL Pste times Branch daily as needed for Pain (scale 1-3). sucralfate 2019- No [id number][in_ Apply 0.25 [facility] malate, 02-18 09-28 us] Inches as ity of polymerized 00:00: 00:00 directed 4 [place] 1 gram/10 00 :00 (four) Medical mL [...] [Topamax] 00 30 tab, 3 Refill(s) topiramate 2019-1 No 25 mg = 1 [...] 1 [place] 00 ea, 0 Refill(s) Walker Yes 1 ea, Memoria 7-26 MISC, l 21:45: Daily, # 1 [place] 00 ea, 0 Refill(s) [place] Yes 1 ea, Memoria 7-26 MISC, l 21:45: Daily, # 1 [place] 00 ea, 0 Refill(s) [place] Yes 1 ea, Memoria 7-26 MISC, l 21:45: Daily, # 1 [place] 00 ea, 0 Refill(s) Walker Yes 1 ea, Memoria 7-26 MISC, l 21:45: Daily, # 1 [place] 00 ea, 0 Refill(s) Walker Yes 1 ea, Memoria 7-26 MISC, l 21:45: Daily, # 1 [place] 00 ea, 0 Refill(s) Adult Yes 81 mg = 1 Memoria Aspirin 81 6-21 tab, CHEW, l mg oral 20:18: Daily, # Ajay n tablet, 00 30 tab, 3 chewable Refill(s), Pharmacy: [facility] #[id number] Adult Yes 81 mg = 1 Memoria Aspirin 81 6-21 tab, CHEW, l mg oral 20:18: Daily, # [place] n tablet, 00 30 tab, 3 chewable Refill(s), Pharmacy: [facility] #[id number] Adult Yes 81 mg = 1 Memoria Aspirin 81 6-21 tab, CHEW, l mg oral 20:18: Daily, # [place] n tablet, 00 30 tab, 3 chewable Refill(s), Pharmacy: [facility] #[id number] Adult Yes 81 mg = 1 Memoria Aspirin 81 6-21 tab, CHEW, l mg oral 20:18: Daily, # Ajay n tablet, 00 30 tab, 3 chewable Refill(s), Pharmacy: [facility] #[id number] Adult 2019-0 Yes 81 mg = 1 Memoria Aspirin 81 6-21 tab, CHEW, l mg oral 20:18: Daily, # Ajay n tablet, 00 30 tab, 3 chewable Refill(s), Pharmacy: [facility] #[id number] Adult 2019-0 Yes 81 mg = 1 Memoria Aspirin 81 6-21 tab, CHEW, l mg oral 20:18: Daily, # Ajay n tablet, 00 30 tab, 3 chewable Refill(s), Pharmacy: [facility] #[id number] levothyroxi 2019-0 Yes 125 Memori a [...] Daily, # 30 tab, 0 Refill(s) gabapentin 2019 Yes 300 mg = 1 M emoria 300 MG Oral 5-24 cap, PO, l Capsule 20:29: BID, # 90 [place] nn 00 cap, 1 Refill(s) levothyroxi Yes 125 Memori a ne 125 [...] tab, PO, l Oral Tablet 20:06: Daily, [place] [Lexapro] 00 30 tab, 0 Refill(s) omeprazole 2019 Yes 40 mg = 1 Me moria 40 mg oral 5-24 cap, PO, l delayed 20:06: Daily, # Ajay n release 00 30 cap, 0 capsule Refill(s) amLODIPine 2019 Yes 5 mg = 1 Mem oria 5 mg oral 5-24 tab, PO, l tablet 20:06: Daily, [place] 00 90 tab, 0 Refill(s) Atropine Yes [...] tab, PO, l tablet 20:06: BID, 0 [place] 00 Refill(s) lisinopril 2019 Yes 40 mg = 1 Me moria 40 mg oral 5-24 tab, PO, l tablet 20:06: Daily, # [place] 00 30 tab, 0 Refill(s) donepezil 2019 [...] tab, PO, l tablet 20:06: BID, 0 [place] 00 Refill(s) lisinopril 2019-0 Yes 40 mg = 1 Me moria 40 mg oral 5-24 tab, PO, l tablet 20:06: Daily, # [place] 00 30 tab, 0 Refill(s) donepezil 2019- Yes 10 mg = 1 Mem oria 10 mg oral 5-24 tab, PO, l tablet 20:06: Daily, # [place] 00 30 tab, 0 Refill(s) ProAir HFA [id number] Yes 1 - 2 Memori a 5-24 puffs, PO, l 20:06: Q4H, PRN [place] 00 Wheezing / cough / shortness of breath, # 1 ea, 0 Refill(s) metoprolol 2019- Yes 50 mg = [...] tab, PO, l tablet 20:06: Daily, # [place] 00 90 tab, 0 Refill(s) Atropine 2019-0 [...] tab, PO, l tablet 20:06: BID, 0 [place] 00 Refill(s) lisinopril 2019 Yes 40 mg = 1 Me moria 40 mg oral 5-24 tab, PO, l tablet 20:06: Daily, # [place] 00 30 tab, 0 Refill(s) donepezil 2019 [...] tab, PO, l tablet 20:06: Daily, # [place] 00 90 tab, 0 Refill(s) Atropine 2019-0 [...] tab, PO, l tablet 20:06: BID, 0 [place] 00 Refill(s) lisinopril 2019- Yes 40 mg = 1 Me moria 40 mg oral 5-24 tab, PO, l tablet 20:06: Daily, # [place] 00 30 tab, 0 Refill(s) donepezil 2019 Yes 10 mg = 1 Mem oria 10 mg oral 5-24 tab, PO, l tablet 20:06: Daily, # [place] 00 30 tab, 0 Refill(s) ProAir HFA Yes 1 - 2 Memori a 5-24 puffs, PO, l 20:06: Q4H, PRN [place] 00 Wheezing / cough / shortness of [...] tab, PO, l tablet 20:06: Daily, # [place] 00 30 tab, 0 Refill(s) donepezil 2019 [...] Raul 00 90 tab, 0 Refill(s) Atropine 2019- Yes 2 tab, PO, Mem oria Sulfate [...] tab, PO, l tablet 20:06: Daily, # [place] 00 30 tab, 0 Refill(s) donepezil Yes 10 mg = 1 Mem oria 10 mg oral 5-24 tab, PO, l tablet 20:06: Daily, # [place] 00 30 tab, 0 Refill(s) ProAir HFA Yes 1 - 2 Memori a 5-24 puffs, PO, l 20:06: Q4H, PRN [place] 00 Wheezing / cough / shortness of breath, # 1 ea, 0 Refill(s) acetaminoph 2017-10 Yes Univer s en-codeine 1-18 ity of 300-30 mg 00:00: [place] tablet 00 Medical Branch acetaminoph 2017-10 Yes Univer s en-codeine 1-18 ity of 300-30 mg 00:00: [place] tablet 00 Medical Branch acetaminoph 2017-10 2020- No Unive rs en-codeine 1-18 09-28 ity of 300-30 mg 00:00: 00:00 [place] [...] mouth ity of mg tablet 17:04: daily. [place] [id number] Medical Branch lovastatin 0 Yes 20mg Take [...] mouth ity of mg tablet 17:04: daily. [place] [address] Medical Branch lovastatin 0 Yes 20mg Take 20 mg U nivers (MEVACOR) 3-07 by mouth ity of 20 mg 17:04: daily. [place] tablet 36 Medical Branch lisinopril 0 Yes 40mg Take 40 mg U nivers [...] mouth ity of XL (TOPROL 17:04: daily. [place] XL) 50 mg 36 Medical 24 hr [...] mouth ity of mg tablet 17:04: daily. [place] [address] Medical Branch lovastatin 2017-0 Yes 20mg Take [...] mouth ity of XL (TOPROL 11:04: daily. [place] XL) 50 mg 36 Medical 24 hr Branch tablet rOPINIRole 2017-0 Yes 2mg Take 2 mg Un martha (REQUIP) 2 3-07 by mouth 2 ity of mg tablet 11:04: (two) [place] 36 times Medical daily. Branch levothyroxi Yes 125ug Take 125 U nivers ne 3-07 mcg by ity of (SYNTHROID) 11:04: mouth [place] 125 mcg 36 daily. Medical tablet Branch donepezil Yes 10mg Take 10 mg Un martha (ARICEPT) 3-07 by mouth ity of 10 mg 11:04: daily. [place] [address] Medical Branch amLODIPine 0 Yes 5mg Take 5 mg Un martha (NORVASC) 5 3-07 by mouth ity of mg tablet 11:04: daily. [place] [address] Medical Branch lovastatin Yes 20mg Take 20 mg U nivers (MEVACOR) 3-07 by mouth ity of 20 mg 11:04: daily. [place] [address] Medical Branch Pantoprazol Pantoprazol No Pantoprazo e Sodium e [...] Trelegy Trelegy No Trelegy Ellipta Ellipta Ellipta Advair Advair No Advair Devoted Diskus 250 Diskus 250 Diskus 250 Medical mcg-50 mcg-50 mcg-50 Group mcg/dose mcg/dose mcg/dose powder for powder for powder for inhalation inhalation inhalation INHALE 1 INHALE 1 INHALE 1 PUFF BY PUFF BY PUFF BY MOUTH TWICE MOUTH TWICE MOUTH DAILY DAILY TWICE DAILY Lisinopril Lisinopril No 1{table QD Lisinopril 40 MG 40 MG t} 40 MG Gabapentin Gabapentin No Gabapentin Sulfamethox Sulfamethox No Sulfametho azole-Trime azole-Trime xazole-Tri thoprim thoprim methoprim Carvedilol Carvedilol No Carvedilol Primidone Primidone No Primidone Levothyroxi Levothyroxi No Levothyrox ne Sodium ne Sodium ine Sodium albuterol albuterol No albuterol Devoted sulfate HFA sulfate HFA sulfate Medical 90 90 HFA 90 Group mcg/actuati mcg/actuati mcg/actuat on aerosol on aerosol ion inhaler inhaler aerosol INHALE 2 INHALE 2 inhaler PUFFS BY PUFFS BY INHALE 2 MOUTH EVERY MOUTH EVERY PUFFS BY 6 HOURS 6 HOURS MOUTH EVERY 6 HOURS Acetaminoph Acetaminoph No Acetaminop en-Codeine en-Codeine hen-Codein #3 #3 e #3 Famotidine Famotidine No Famotidine Donepezil Donepezil No 1{table QD Donepezil HCl 10 MG HCl 10 MG t} HCl 10 MG Flublok Flublok No Flublok Quadrivalen Quadrivalen Quadrivale t t nt Potassium Potassium No Potassium Chloride Chloride Chloride Neeta ER Neeta ER Neeta ER amlodipine amlodipine No amlodipine Devoted 10 mg [...] Lomotil No Lomotil Gabapentin Gabapentin No Gabapentin Breo Breo No Breo Devoted Ellipta 200 Ellipta 200 Ellipta Medical mcg-25 mcg-25 200 mcg-25 Group mcg/dose mcg/dose mcg/dose powder for powder for powder for inhalation inhalation inhalation TAKE 1 PUFF TAKE 1 PUFF TAKE 1 BY MOUTH BY MOUTH PUFF BY EVERY DAY EVERY DAY MOUTH EVERY DAY Omeprazole Omeprazole No QD Omeprazole 40 MG 40 MG 40 MG Nitrofurant Nitrofurant No Nitrofuran oin Monohyd oin Monohyd toin Macro Macro Monohyd Macro Metoprolol Metoprolol No Metoprolol Succinate Succinate Succinate amLODIPine amLODIPine No 1{table QD amLODIPine Besylate 5 Besylate 5 t} Besylate 5 MG MG MG Mupirocin Mupirocin No Mupirocin Calcium Calcium Calcium bupropion bupropion No bupropion Devoted HCl XL 150 HCl XL 150 HCl XL 150 Medical mg 24 hr mg 24 hr mg 24 hr Anand up tablet, tablet, tablet, extended extended extended release release release TAKE 1 TAKE 1 TAKE 1 TABLET BY TABLET BY TABLET BY MOUTH TWICE MOUTH TWICE MOUTH A DAY A DAY TWICE A DAY Spironolact Spironolact No Spironolac one one tone Escitalopra Escitalopra No 1{table QD Escitalopr m Oxalate m Oxalate t} am Oxalate 20 MG 20 MG 20 MG Pantoprazol Pantoprazol No Pantoprazo e Sodium e Sodium le Sodium Clindamycin Clindamycin No Clindamyci HCl HCl n HCl Cephalexin Cephalexin No Cephalexin Ciprofloxac Ciprofloxac No Ciprofloxa in HCl in HCl nataliya HCl carvedilol carvedilol No carvedilol Devoted 6.25 mg 6.25 mg 6.25 mg Medica l tablet TAKE tablet TAKE tablet Group 1 TABLET BY 1 TABLET BY TAKE 1 MOUTH TWICE MOUTH TWICE TABLET BY A DAY A DAY MOUTH TWICE A DAY Trelegy Trelegy No Trelegy Ellipta Ellipta Ellipta Lisinopril Lisinopril No 1{table QD Lisinopril 40 MG 40 MG t} 40 MG Gabapentin Gabapentin No Gabapentin Sulfamethox Sulfamethox No Sulfametho azole-Trime azole-Trime xazole-Tri thoprim thoprim methoprim Carvedilol Carvedilol No Carvedilol Primidone Primidone No Primidone donepezil donepezil No donepezil Devoted 10 mg 10 mg 10 mg Medical tablet TAKE tablet TAKE tablet Group 1 TABLET BY 1 TABLET BY TAKE 1 MOUTH EVERY MOUTH EVERY TABLET BY DAY DAY MOUTH EVERY DAY Levothyroxi Levothyroxi No Levothyrox ne Sodium ne Sodium ine Sodium Acetaminoph Acetaminoph No Acetaminop en-Codeine en-Codeine hen-Codein #3 #3 e #3 Famotidine Famotidine No Famotidine Donepezil Donepezil No 1{table QD Donepezil HCl 10 MG HCl 10 MG t} HCl 10 MG amLODIPine amLODIPine No 1{table QD amLODIPine Besylate 5 Besylate 5 t} Besylate 5 MG MG MG escitalopra escitalopra No escitalopr Devoted m 20 [...] Pantoprazo e Sodium e Sodium le Sodium famotidine famotidine No famotidine Devoted 20 mg 20 mg 20 mg Medical tablet TAKE tablet TAKE tablet Group 1 TABLET BY 1 TABLET BY TAKE 1 MOUTH EVERY MOUTH EVERY TABLET BY DAY DAY MOUTH EVERY DAY Potassium Potassium No Potassium Chloride Chloride Chloride Neeta ER Neeta ER Neeta ER Diclofenac Diclofenac No Diclofenac Sodium 1 % Sodium 1 % Sodium 1 % Cephalexin Cephalexin No Cephalexin Diclofenac Diclofenac No Diclofenac Sodium 1 % Sodium 1 % Sodium 1 % Donepezil Donepezil No 1{table QD Donepezil HCl 10 MG HCl 10 MG t} HCl 10 MG gabapentin gabapentin No gabapentin Devoted 300 mg 300 mg 300 mg Medical capsule capsule capsule Group TAKE 1 TAKE 1 TAKE 1 CAPSULE BY CAPSULE BY CAPSULE BY MOUTH TWICE MOUTH TWICE MOUTH A DAY A DAY TWICE A DAY Lisinopril Lisinopril No 1{table QD Lisinopril 40 MG 40 MG t} 40 MG Lovastatin Lovastatin No QD Lovastatin 20 MG 20 MG 20 MG Furosemide Furosemide No Furosemide Potassium Potassium No Potassium Chloride ER Chloride ER Chloride ER Albuterol Albuterol No Albuterol Sulfate HFA Sulfate HFA Sulfate HFA ipratropium ipratropium No ipratropiu Devoted bromide 21 bromide 21 m bromide Medical mcg (0.03 mcg (0.03 21 mcg Anand up %) nasal %) nasal (0.03 %) spray USE spray USE nasal SPRAY UP TO SPRAY UP TO spray USE 4 TIMES 4 TIMES SPRAY UP DAILY DAILY TO 4 TIMES DAILY Sulfamethox Sulfamethox No Sulfametho azole-Trime azole-Trime xazole-Tri thoprim thoprim methoprim Escitalopra Escitalopra No 1{table QD Escitalopr m Oxalate m Oxalate t} am Oxalate 20 MG 20 MG 20 MG Clindamycin Clindamycin No Clindamyci HCl HCl n HCl Flublok Flublok No Flublok Quadrivalen Quadrivalen Quadrivale t t nt Gabapentin Gabapentin No Gabapentin levothyroxi levothyroxi No levothyrox Devoted ne 125 mcg ne 125 mcg ine 125 Medical tablet TAKE tablet TAKE mcg tablet Group 1 TABLET BY 1 TABLET BY TAKE 1 MOUTH EVERY MOUTH EVERY TABLET BY DAY DAY MOUTH EVERY DAY Levothyroxi Levothyroxi No Levothyrox ne [...] every day route. route. by oral route. Lomotil Lomotil No Lomotil Famotidine Famotidine No Famotidine Carvedilol Carvedilol No Carvedilol Acetaminoph Acetaminoph No Acetaminop en-Codeine en-Codeine hen-Codein #3 #3 e #3 lovastatin lovastatin No lovastatin Devoted 20 mg [...] Ciprofloxa in HCl in HCl nataliya HCl metoprolol metoprolol No metoprolol Devoted succinate succinate succinate Medical 50 mg daily 50 mg daily 50 mg Group daily Omeprazole Omeprazole No QD Omeprazole 40 MG 40 MG 40 MG Famotidine Famotidine No Famotidine Pantoprazol Pantoprazol No Pantoprazo e Sodium e Sodium le Sodium Carvedilol Carvedilol No Carvedilol omeprazole omeprazole No omeprazole Devoted 40 mg 40 mg 40 mg Medical capsule,del capsule,del capsule,de Group ayed ayed layed release release release TAKE 1 TAKE 1 TAKE 1 CAPSULE BY CAPSULE BY CAPSULE BY MOUTH EVERY MOUTH EVERY MOUTH DAY DAY EVERY DAY Kerendia Kerendia No Kerendia Acetaminoph Acetaminoph No Acetaminop en-Codeine en-Codeine hen-Codein #3 #3 e #3 Sulfamethox Sulfamethox No Sulfametho azole-Trime azole-Trime xazole-Tri thoprim thoprim methoprim Lomotil Lomotil No Lomotil Diclofenac Diclofenac No Diclofenac Sodium 1 % Sodium 1 % Sodium 1 % potassium potassium No potassium Devoted chloride ER chloride ER chloride Medical 10 mEq 10 mEq ER 10 mEq Group capsule,ext capsule,ext capsule,ex ended ended tended release release release TAKE 1 TAKE 1 TAKE 1 CAPSULE BY CAPSULE BY CAPSULE BY MOUTH EVERY MOUTH EVERY MOUTH DAY DAY EVERY DAY Escitalopra Escitalopra No 1{table QD [...] Clindamycin No Clindamyci HCl HCl n HCl primidone primidone No primidone Devoted 50 mg 50 mg 50 mg Medical tablet TAKE tablet TAKE tablet Group 1 TABLET BY 1 TABLET BY TAKE 1 MOUTH MOUTH TABLET BY EVERYDAY AT EVERYDAY AT MOUTH BEDTIME BEDTIME EVERYDAY AT BEDTIME Furosemide Furosemide No Furosemide rOPINIRole rOPINIRole No 1{table BID rOPINIRole HCl 2 MG HCl 2 MG t} HCl 2 MG Gabapentin Gabapentin No Gabapentin Chlorhexidi Chlorhexidi No Chlorhexid ne ne ine Gluconate Gluconate Gluconate ropinirole ropinirole No ropinirole Devoted 2 mg tablet 2 mg tablet 2 mg M edical TAKE 1 TAKE 1 tablet Group TABLET BY TABLET BY TAKE 1 MOUTH TWICE MOUTH TWICE TABLET BY A DAY A DAY MOUTH TWICE A DAY Mupirocin Mupirocin No Mupirocin Calcium Calcium Calcium Primidone Primidone No Primidone Ciprofloxac Ciprofloxac No Ciprofloxa in HCl in HCl nataliya HCl spironolact spironolact No spironolac Devoted one 25 mg one 25 mg tone 25 mg Medical tablet TAKE tablet TAKE tablet Group 1 TABLET BY 1 TABLET BY TAKE 1 MOUTH EVERY MOUTH EVERY TABLET BY DAY DAY MOUTH EVERY DAY Cephalexin Cephalexin No Cephalexin Ketoconazol Ketoconazol No Ketoconazo e e le Diclofenac Diclofenac No Diclofenac Sodium 1 % Sodium 1 % Sodium 1 % topiramate topiramate No topiramate Devoted 25 mg 25 mg 25 mg Medical tablet TAKE tablet TAKE tablet Group 1 TABLET BY 1 TABLET BY TAKE 1 MOUTH AT MOUTH AT TABLET BY BEDTIME BEDTIME MOUTH AT BEDTIME Potassium Potassium No Potassium Chloride Chloride Chloride Neeta ER Neeta ER Neeta ER Fluocinonid Fluocinonid No Fluocinoni e e de traMADol traMADol No traMADol HCl HCl HCl Trelegy Trelegy No Trelegy Devote d Ellipta 100 Ellipta 100 Ellipta Medical mcg-62.5 mcg-62.5 100 Group mcg-25 mcg mcg-25 mcg mcg-62.5 powder for powder for mcg-25 mcg inhalation inhalation powder for INHALE 1 INHALE 1 inhalation PUFF BY PUFF BY INHALE 1 MOUTH EVERY MOUTH EVERY PUFF BY DAY DAY MOUTH EVERY DAY Albuterol Albuterol No Albuterol Sulfate HFA [...] 2022-08-05 20:00:00 122 mm[Hg] [facility] Diastolic blood 2022-08-05 20:00:00 77 mm[Hg] [facility] 2022-08-05 20:00:00 50 /min [facility] Respiratory rate 2022-08-05 20:00:00 18 /min [facility] Oxygen saturation in 2022-08-05 20:00:00 94 /min [facility] blood by [facility] Pulse oximetry Branch Body temperature 2022-08-05 17:24:00 36 Tracee [facility] Body height 2022-08-05 17:24:00 149.9 cm [facility] Body weight 2022-08-05 17:24:00 83.915 kg [facility] BMI 2022-08-05 17:24:00 37.37 kg/m2 [facility] height 2022-07-27 13:15:00 59 [in_i] [facility] weight 2022-07-27 13:15:00 188.2 [lb_av] [facility] temperature 2022-07-27 13:15:00 97.6 [degF] [facility] bmi 2022-07-27 13:15:00 38.01 kg/m2 [facility] blood pressure 2022-07-27 13:15:00 125 mm[Hg] [facility] - systolic [facility] blood pressure 2022-07-27 13:15:00 82 mm[Hg] [facility] - diastolic [facility] height 2022-06-15 13:30:00 59 [in_i] [facility] weight 2022-06-15 13:30:00 193 [lb_av] [facility] temperature 2022-06-15 13:30:00 98.1 [degF] [facility] bmi 2022-06-15 13:30:00 38.98 kg/m2 [facility] blood pressure 2022-06-15 13:30:00 128 mm[Hg] [facility] - systolic [facility] blood pressure 2022-06-15 13:30:00 76 mm[Hg] [facility] - diastolic [facility] height 2021-10-17 14:30:00 59 [in_i] [facility] weight 2021-10-17 14:30:00 220 [lb_av] [facility] temperature 2021-10-17 14:30:00 97.9 [degF] [facility] bmi 2021-10-17 14:30:00 44.43 kg/m2 [facility] S [facility] blood pressure 2021-10-17 14:30:00 126 mm[Hg] [facility] - systolic [facility] blood pressure 2021-10-17 14:30:00 74 mm[Hg] [facility] - diastolic [facility] Systolic blood 2020-06-28 19:30:00 180 mm[Hg] [facility] Diastolic blood 2020-06-28 19:30:00 82 mm[Hg] [facility] 2020-06-28 19:30:00 61 /min [facility] Respiratory rate 2020-06-28 19:13:00 17 /min [facility] Oxygen saturation in 2020-06-28 19:13:00 96 /min [facility] Arterial blood by [facility] Pulse oximetry Branch Body temperature 2020-06-28 16:54:00 36.33 Tracee [facility] 2020-06-28 16:54:00 95.255 kg [facility] BMI 2020-06-28 16:54:00 42.41 kg/m2 [facility] Systolic blood 2020-06-28 19:30:00 180 mm[Hg] Univer sity [facility] Diastolic blood 2020-06-28 19:30:00 82 mm[Hg] Unive rsity of pressure [place] [facility] Heart rate 2020-06-28 19:30:00 61 /min [facility] [place] [facility] Respiratory rate 2020-06-28 19:13:00 17 /min [facility] [place] [facility] Oxygen saturation in 2020-06-28 19:13:00 96 /min [facility] Arterial blood by [place] [facility] Pulse oximetry Branch Body temperature 2020-06-28 16:54:00 36.33 Tracee [facility] [place] [facility] Body weight 2020-06-28 16:54:00 95.255 kg [facility] [place] [facility] BMI 2020-06-28 16:54:00 42.41 kg/m2 [facility] [place] [facility] Systolic blood 2020-02-19 19:23:00 160 mm[Hg] Univer sity of pressure [place] [facility] Diastolic blood 2020-02-19 19:23:00 84 mm[Hg] Unive rsity of pressure [place] [facility] Heart rate 2020-02-19 19:23:00 63 /min [facility] [place] [facility] Body temperature 2020-02-19 19:23:00 36.39 Tracee Univ [facility] [place] [facility] Respiratory rate 2020-02-19 19:23:00 15 /min [facility] [place] [facility] Body height 2020-02-19 19:23:00 149.9 cm [facility] [place] [facility] Body weight 2020-02-19 19:23:00 99.791 kg [facility] [place] [facility] BMI 2020-02-19 19:23:00 44.43 kg/m2 [facility] [place] [facility] Oxygen saturation in 2020-02-19 19:23:00 96 /min [facility] Arterial blood by [facility] tania Pulse oximetry Branch Systolic blood 2020-02-19 19:23:00 160 mm[Hg] Univer sity of pressure [place] [facility] Diastolic blood 2020-02-19 19:23:00 84 mm[Hg] Unive rsity of pressure [place] [facility] Heart rate 2020-02-19 19:23:00 63 /min [facility] [place] [facility] Body temperature 2020-02-19 19:23:00 36.39 Tracee [facility] [place] [facility] Respiratory rate 2020-02-19 19:23:00 15 /min [facility] Body height 2020-02-19 19:23:00 149.9 cm [facility] Body weight 2020-02-19 19:23:00 99.791 kg [facility] BMI 2020-02-19 19:23:00 44.43 kg/m2 [facility] Oxygen saturation in 2020-02-19 19:23:00 96 /min [facility] Arterial blood by [facility] Pulse oximetry Branch Systolic blood 2019-12-10 04:00:00 202 mm[Hg] [facility] Diastolic blood 2019-12-10 04:00:00 92 mm[Hg] [facility] Heart rate 2019-12-10 04:00:00 75 /min [facility] Respiratory rate 2019-12-10 04:00:00 18 /min [facility] Oxygen saturation in 2019-12-10 04:00:00 98 /min [facility] Arterial blood by [facility] Pulse oximetry Branch Body temperature 2019-12-10 02:51:13 36.39 Tracee [facility] Body height 2019-12-10 02:28:00 162.6 cm [facility] Body weight 2019-12-10 02:28:00 104.327 kg [facility] BMI 2019-12-10 02:28:00 39.48 kg/m2 [facility] Systolic blood 2019-12-10 04:00:00 202 mm[Hg] [facility] Diastolic blood 2019-12-10 04:00:00 92 mm[Hg] [facility] Heart rate 2019-12-10 04:00:00 75 /min [facility] Respiratory rate 2019-12-10 04:00:00 18 /min [facility] Oxygen saturation in 2019-12-10 04:00:00 98 /min [facility] Arterial blood by [facility] Pulse oximetry Branch Body temperature 2019-12-10 02:51:13 36.39 Tracee [facility] Body height 2019-12-10 02:28:00 162.6 cm [facility] Body weight 2019-12-10 02:28:00 104.327 kg [facility] BMI 2019-12-10 02:28:00 39.48 kg/m2 [facility] Systolic (mm Hg) 2022-11-23 01:23:00 Jose Francisco rial [facility] Diastolic (mm Hg) 2022-11-23 01:23:00 [facility] [place] Temperature Oral (F) 2022-11-22 02:00:00 98.2 F [facility] [place] Height 2022-11-21 10:11:00 4 [ft_i] [facility] BMI Calculated 2022-11-21 10:11:00 [facility] Weight 2022-11-21 10:11:00 [facility] [place] Heart Rate 2022-11-21 10:11:00 [facility] Systolic (mm Hg) 2021-11-02 20:14:00 Jose Francisco rial [place] Diastolic (mm Hg) 2021-11-02 20:14:00 Mem [facility] [place] Heart Rate 2021-11-02 20:14:00 [facility] Respitory Rate 2021-11-02 20:14:00 [facility] [place] Height 2021-11-02 20:14:00 149.86 cm [facility] [place] Weight 2021-11-02 20:14:00 [facility] [place] BMI Calculated 2021-11-02 20:14:00 Memori al [facility] Systolic (mm Hg) 2020-12-24 18:59:00 Jose Francisco rial Raul Diastolic (mm Hg) 2020-12-24 18:59:00 [facility] [place] Heart Rate 2020-12-24 18:59:00 [facility] Respitory Rate 2020-12-24 18:59:00 Mem[facility] al [facility] Height 2020-12-24 18:59:00 149.86 cm [facility] [place] Weight 2020-12-24 18:59:00 [facility] BMI Calculated 2020-12-24 18:59:00 [facility] [place] Systolic (mm Hg) 2020-09-06 20:47:00 Jose Francisco rial [place] Diastolic (mm Hg) 2020-09-06 20:47:00 [facility] [place] Temperature Oral (F) 2020-09-06 18:26:00 99.7 F [facility] [place] Heart Rate 2020-09-06 18:26:00 [facility] [place] Respitory Rate 2020-09-06 18:26:00 [facility] [place] Systolic (mm Hg) 2020-09-06 18:26:00 Jose Francisco rial [place] Diastolic (mm Hg) 2020-09-06 18:26:00 Mem orial [facility] Temperature Oral (F) 2020-09-06 14:09:00 98.1 F [facility] [place] Heart Rate 2020-09-06 14:09:00 [facility] Respitory Rate 2020-09-06 14:09:00 Mem[facility] Systolic (mm Hg) 2020-09-06 14:09:00 Jose Francisco rial [place] Diastolic (mm Hg) 2020-09-06 14:09:00 Mem orial [facility] Temperature Oral (F) 2020-09-06 10:00:00 98.1 F [facility] Heart Rate 2020-09-06 10:00:00 [facility] Respitory Rate 2020-09-06 10:00:00 Mem[facility] Temperature Oral (F) 2020-09-06 06:30:00 97.5 F [facility] [place] Heart Rate 2020-09-06 06:30:00 [facility] Respitory Rate 2020-09-06 06:30:00 Mem[facility] Systolic (mm Hg) 2020-09-06 06:30:00 Jose Francisco rial [place] Diastolic (mm Hg) 2020-09-06 06:30:00 Mem orial [facility] Temperature Oral (F) 2020-09-06 02:45:00 97.8 F [facility] Heart Rate 2020-09-06 02:45:00 [facility] Respitory Rate 2020-09-06 02:45:00 [facility] [place] Systolic (mm Hg) 2020-09-06 02:45:00 Jose Francisco rial Raul Diastolic (mm Hg) 2020-09-06 02:45:00 [facility] [place] Temperature Oral (F) 2020-09-05 22:00:00 97 F [facility] Heart Rate 2020-09-05 22:00:00 [facility] [place] Respitory Rate 2020-09-05 22:00:00 [facility] [place] Systolic (mm Hg) 2020-09-05 22:00:00 Jose Francisco rial [place] Diastolic (mm Hg) 2020-09-05 22:00:00 Mem o[facility] Height 2020-09-05 02:46:00 124.46 cm [facility] BMI Calculated 2020-09-05 02:46:00 [facility] Weight 2020-09-05 02:46:00 [facility] [place] Systolic (mm Hg) 2020-05-25 18:41:00 Jose Francisco rial [facility]ul Diastolic (mm Hg) 2020-05-25 18:41:00 Mem [facility] Heart Rate 2020-05-25 18:41:00 [facility] Respitory Rate 2020-05-25 18:41:00 Mem[facility] Temperature Oral (F) 2020-05-25 18:41:00 98.6 F [facility] Height 2020-05-25 18:41:00 149.86 cm [facility] [place] Weight 2020-05-25 18:41:00 [facility] BMI Calculated 2020-05-25 18:41:00 Mem[facility] Systolic (mm Hg) 2020-03-24 14:12:00 Jose Francisco rial [facility]ul Diastolic (mm Hg) 2020-03-24 14:12:00 Mem [facility] [place] Heart Rate 2020-03-24 14:12:00 [facility] Height 2020-03-24 14:12:00 149.86 cm [facility] [place] Weight 2020-03-24 14:12:00 [facility] [place] BMI Calculated 2020-03-24 14:12:00 [facility] [place] Systolic (mm Hg) 2019-07-24 19:29:00 Jose Francisco rial [place] Diastolic (mm Hg) 2019-07-24 19:29:00 Mem [facility] [place] Heart Rate 2019-07-24 19:29:00 [facility] [place] Respitory Rate 2019-07-24 19:29:00 Memori al [facility] Height 2019-07-24 19:29:00 149.86 cm [facility] Weight 2019-07-24 19:29:00 [facility] [place] BMI Calculated 2019-07-24 19:29:00 [facility] [place] Systolic (mm Hg) 2019-05-21 19:25:00 Jose Francisco rial [place] Diastolic (mm Hg) 2019-05-21 19:25:00 Mem [facility] [place] Heart Rate 2019-05-21 19:25:00 [facility] [place] Respitory Rate 2019-05-21 19:25:00 [facility] [place] Height 2019-05-21 19:25:00 149.86 cm [facility] Weight 2019-05-21 19:25:00 [facility] BMI Calculated 2019-05-21 19:25:00 Memori al [facility] Height 2019-03-21 19:45:00 147.32 cm [facility] [place] Weight 2019-03-21 19:45:00 [facility] [place] BMI Calculated 2019-03-21 19:45:00 Memori al [facility] Respitory Rate 2019-03-21 19:45:00 [facility] Heart Rate 2019-03-21 19:45:00 [facility] [place] Systolic (mm Hg) 2019-03-21 19:45:00 Jose Francisco rial [place] Diastolic (mm Hg) 2019-03-21 19:45:00 [facility] [place] Height 2019-02-21 20:01:00 149.86 cm [facility] Weight 2019-02-21 20:01:00 [facility] BMI Calculated 2019-02-21 20:01:00 Memori al [facility] Respitory Rate 2019-02-21 20:01:00 [facility] [place] Heart Rate 2019-02-21 20:01:00 [facility] Systolic (mm Hg) 2019-02-21 20:01:00 Jose Francisco rial [facility] Diastolic (mm Hg) 2019-02-21 20:01:00 Mem orial [facility] Procedures Procedure Date / Time Performed Performing Clinician Sourc e XR CHEST 1 VW 2022-08-05 17:51:10 Carly Sniclair [facility] TROPONIN I 2022-08-05 17:31:00 Carly Sinclair [facility] COMP. METABOLIC PANEL 2022-08-05 17:31:00 Carly Sinclair [facility] ([id number]) [facility] CBC WITH DIFF 2022-08-05 17:31:00 Carly Sinclair [facility] RAPID INFLUENZA A/B 2022-08-05 17:31:00 Carly Sinclair [facility] N-TERMINAL PRO-BNP 2022-08-05 17:31:00 Carly Sinclair [facility] sity [facility] COVID-19 (ID NOW 2022-08-05 17:31:00 Carly Sinclair [facility] RAPID TESTING) Medical Branch CONSENT/REFUSAL FOR 2022-08-05 17:11:04 Doctor Unassigned, [facility] AND Name Medical Branch TREATMENT XR FOREARM 2 VW RIGHT 2020-06-28 17:49:01 Sariah Miller [facility] Medical Branch XR SHOULDER 2+ VW 2020-06-28 17:49:01 Sariah Miller [facility] RIGHT Medical Branch CONSENT/REFUSAL FOR 2020-02-19 18:58:01 Doctor Unassigned, No [facility] AND Name Medical Branch TREATMENT XR TIBIA FIBULA 2 VW 2019-12-10 03:20:47 Timi Aguirre [facility] Medical Branch Encounters Start End Encounter Admission Attending Care Care Encounter Source Date/Time Date/Time Type Type Clinicians Facility Department ID 2022-11-23 Outpatient [facility] [id number] [place] 15:23:09 [id number] Health 2022-11-13 Outpatient STLMLC STLMLC [id number] Common 13:04:00 [id number] [facility] 2022-11-09 Outpatient STLMLC STLMLC [id number] Common 12:35:00 [id number] [facility] 2022-07-26 Outpatient STLMLC STLMLC [id number] Common 16:10:00 [id number] [facility] 2022-06-16 Outpatient STLMLC STLMLC [id number] Common 09:53:02 [id number] [facility] 2021-10-26 Outpatient STLMLC STLMLC [id number] Common 13:00:46 [id number] [facility] 2021-10-26 Outpatient STLMLC STLMLC [id number] Common 12:25:20 [id number] [facility] 2021-10-26 Outpatient STLMLC STLMLC [id number] Common 12:16:59 [id number] [facility] 2021-10-05 Inpatient NIC Sanderson, HCAWU ADMI [id number] [facility] 11:00:00 Anurag Ferguson [facility] 2021-07-29 Emergency [facility] [id number] Univers 19:46:17 ity [facility] 2021-07-28 Emergency [facility] [id number] Univers 21:53:33 ity [facility] 2022-11-21 2022-11-[address] [facility] [id number] [facility] 10:09:00 20:23:00 n [place] 00 l [facility] 2022-11-21 2022-11-22 Outpatient E CESLIIA, [facility] [id number] [facility] 08:46:00 14:23:00 PEREZ 2022-11-21 2022-11-22 Outpatient Cesilia [facility] [id number] 04:09:00 14:23:00 Perez Seiji 00 2022-11-01 2022-11-01 (TEL) [facility] STLC [id number] Co mmon 00:00:00 00:00:00 [facility] 2022-09-29 2022-09-29 Inpatient KAYCEE AndersonWU [facility] [id number] [facility] 11:00:00 11:00:00 Anurag 98 [facility] 2022-09-13 2022-09-13 CAV Allegra 2.16.840. 2.16.840.1. CLAC [id number] [facility] 20:30:00 21:00:00 Revisit: Valentín [id number] Medical Gap [id number] Closure & [id number] Clinical Check-in 2022-09-05 2022-09-05 (TEL) [facility] STLC [id number] Co mmon 00:00:00 00:00:00 [facility] 2022-08-05 2022-08-05 Emergency [facility] [id number] Univers 12:20:00 15:34:00 CARLY dominique [facility] 2022-08-05 2022-08-05 Emergency [facility] [id number] Univers 12:20:00 15:34:00 Carly AMIN 350.1.13.10 trip [facility] [id number] [facility] [id number] [facility] 084 Branch 2022-08-03 2022-08-03 [place] [id number] -[id number] [facility] 00:00:00 00:00:00 1103 Medica l Group 2022-07-27 2022-07-27 OFFICE STLMLC STLMLC [id number] Co mmon 00:00:00 00:00:00 VISIT Spirit ESTAB PT - CHI LEVEL 4 [facility] 2022-06-15 2022-06-15 OFFICE STLMLC STLMLC [id number] Co mmon 00:00:00 00:00:00 VISIT Spirit ESTAB PT - CHI LEVEL 4 [facility] 2022-06-12 2022-06-12 CAV Allegra 2.16.840. 2.16.840.1. CLA [id number] [facility] 20:00:00 21:00:00 Valentín [id number] [facility] [id number] 2022-04-28 2022-04-28 Ambulatory nullFlavo MNA [id number] Memoria 19:00:00 19:00:00 Pre-Reg r Neurology 14 l Lana Cunhaann 2022-04-28 2022-04-28 Ambulatory nullFlavo MNA [id number] Memoria 19:00:00 19:00:00 Pre-Reg r Neurology 14 l Columbusalbin Cunhaann 2022-04-28 2022-04-28 Outpatient FRANCESCO MAYA [id number] Memoria 14:00:00 14:00:00 14 l Raul 2022-04-28 2022-04-28 Outpatient GOSIA GarciaSCHER MISCHER [id number] 14:00:00 14:00:00 Jeffrey 14 Holl[place] 2022-04-14 2022-04-14 [place] [id number] -[id number] [facility] 07:15:00 07:15:00 0715 Medica l Group 2021-12-15 2021-12-15 (TEL) STLMLC STLMLC [id number] Co mmon 00:00:00 00:00:00 Spirit - CHI [facility] 2021-12-08 2021-12-08 (TEL) STLMLC STLMLC [id number] Co mmon 00:00:00 00:00:00 [facility] 2021-11-29 2021-11-29 OL DIG E/M STLMLC STLMLC [id number] Common 00:00:00 00:00:00 SVC 5-10 Spiri t [facility] 2021-11-21 2021-11-21 (TEL) STLMLC STLMLC [id number] Co mmon 00:00:00 00:00:00 [facility] 2021-11-02 2021-11-03 Outpatient nullFlavo MNA [id number] Memoria 19:30:00 05:59:59 r Neurology 13 l Lana Cunhaann 2021-11-02 2021-11-03 Outpatient nullFlavo MNA [id number] Memoria 19:30:00 05:59:59 r Neurology 13 l Columbusalbin Cunhaann 2021-11-02 2021-11-02 Outpatient YURIDIA GarciaSCHANJEL [id number] 13:30:00 23:59:59 Jeffrey 13 [place] 2021-11-02 2021-11-02 Ambulatory nullFlavo MNA [id number] Memoria 19:00:00 19:00:00 Pre-Reg r Neurology 12 l Lana Cunhaann 2021-11-02 2021-11-02 Ambulatory nullFlavo MNA [id number] Memoria 19:00:00 19:00:00 Pre-Reg r Neurology 12 l Lana Cunhaann 2021-11-02 2021-11-02 Outpatient MHIE MHIE [id number] Memoria 13:30:00 13:30:00 13 [place] 2021-11-02 2021-11-02 Outpatient MHIE MHIE [id number] Memoria 13:00:00 13:00:00 12 lavelle Raul 2021-11-02 2021-11-02 Outpatient YURIDIA Garcia [id number] 13:00:00 13:00:00 Jeffrey 12 [place] 2021-10-26 2021-10-26 (TEL) STLC STLC [id number] Co mmon 00:00:00 00:00:00 [facility] 2021-10-17 2021-10-17 OFFICE STLMLC STLMLC [id number] Co mmon 00:00:00 00:00:00 VISIT [facility] LEVEL 4 [facility] 2021-10-03 2021-10-03 ESTRELLA Dinh 2.16.840. 2.16.840.1. CLAC [id number] [facility] 20:00:00 21:30:00 Valentín [id number]. R Medical [id number] 2021-08-29 2021-08-29 Outpatient Canales_M DMG DMG [id number] -[id number] [facility] 12:42:00 12:42:00 1129 Medica l Group 2021-06-28 2021-06-28 Ambulatory nullFlavo MNA [id number] Memoria 19:00:00 19:00:00 Pre-Reg r Neurology 11 l Lana Cunhaann 2021-06-28 2021-06-28 Ambulatory nullFlavo MNA [id number] Memoria 19:00:00 19:00:00 Pre-Reg r Neurology 11 l Columbusalbin Cunhaann 2021-06-28 2021-06-28 Outpatient PRUDENCIOIE FRANCESCO [id number] [facility] 14:00:00 14:00:00 11 lavelle Carter 2021-06-28 2021-06-28 Outpatient YURIDIA Garcia [id number] 14:00:00 14:00:00 Jeffrey Shafer 2021-05-16 2021-05-16 Outpatient STLMLC STLMLC [id number] Common 00:00:00 00:00:00 [facility] 2021-05-10 2021-05-10 Outpatient STLMLC STLMLC [id number] Common 00:00:00 00:00:00 [facility] 2021-04-12 2021-04-12 Outpatient STLMLC STLMLC [id number] Common 00:00:00 00:00:00 [facility] 2021-03-28 2021-03-28 Outpatient Olivia-Mbayo VFP VFP [id number] [facility] 05:32:00 05:32:00 _A_AH [id number] Family Practic e 2021-03-07 2021-03-07 Outpatient STLMLC STLMLC [id number] Common 00:00:00 00:00:00 [facility] 2021-02-08 2021-02-08 Outpatient STLMLC STLMLC [id number] Common 00:00:00 00:00:00 [facility] 2021-01-28 2021-01-30 Outside nullFlavo MNA [id number] Memoria 14:05:24 04:59:59 Medical r Neurology 01 l Records Lana Cunhaann 2021-01-28 2021-01-30 Outside nullFlavo MNA [id number] Memoria 14:05:24 04:59:59 Medical r Neurology 01 l Records Lana Cunhaann 2021-01-28 2021-01-29 Outpatient MHMISCHER MHMISCHER [id number] 09:05:24 23:59:59 01 2021-01-18 2021-01-18 [facility] [id number] [place] [address] 01:43:00 01:43:00 _A_AH [id number] Family Practic e 2021-01-14 2021-01-14 Outpatient Canales_M DMDimitri BAEZA [id number] [facility] 05:20:00 05:20:00 0416 Medica l Group 2021-01-14 2021-01-14 Caitlyn BAEZA MA - [id number] D evoted 00:00:00 00:00:00 Radha Choudhurya l Jerez, Health Group RN AMBULATORY: [id number] [facility] [address], [place] [address] , Ph. 2021-01-14 2021-01-14 Outpatient Jerez, DMG ARYAN [id number] 00:00:00 00:00:00 Caitlyn [id number] Radha [id number] 2021-01-13 2021-01-13 Outpatient Canales_M DMDimitri BAEZA [id number] [facility] 05:35:00 05:35:00 0415 Medica l Group 2021-01-12 2021-01-12 [place] [id number] -[id number] [facility] 04:16:00 04:16:00 0414 Medica l Group 2020-12-24 2020-12-25 Outpatient nullFlavo MNA [id number] Memoria 18:45:00 04:59:59 r Neurology 10 l Lana Carter 2020-12-24 2020-12-25 Outpatient nullFlavo MNA [id number] Memoria 18:45:00 04:59:59 r Neurology 10 l Lana Carter 2020-12-24 2020-12-24 Outpatient Jose MHMISCHER MHMISCHER [id number] 13:45:00 23:59:59 Jeffrey Lupis Shafer 2020-12-24 2020-12-24 Outpatient MHIE MHIE [id number] Memoria 13:45:00 13:45:00 10 l [place] 2020-12-09 2020-12-09 Outpatient STLMLC STLMLC [id number] Common 00:00:00 00:00:00 [facility] 2020-12-09 2020-12-09 Outpatient STLMLC STLMLC [id number] Common 00:00:00 00:00:00 [facility] 2020-11-30 2020-11-30 Outpatient STLMLC STLMLC [id number] Common 00:00:00 00:00:00 [facility] 2020-11-23 2020-11-25 Outside nullFlavo MNA [id number] Memoria 17:49:36 05:59:59 Medical r Neurology 00 l Records Lana Carter 2020-11-23 2020-11-25 Outside nullFlavo MNA [id number] Memoria 17:49:36 05:59:59 Medical r Neurology 00 l Records Lana Carter 2020-11-23 2020-11-24 Outpatient MHMISCHER MHMISCHER [id number] 11:49:36 23:59:59 00 2020-10-28 2020-10-28 Outpatient STLMLC STLMLC [id number] Common 00:00:00 00:00:00 [facility] 2020-10-25 2020-10-25 Outpatient STLMLC STLC [id number] Common 00:00:00 00:00:00 [facility] 2020-10-11 2020-10-11 Ambulatory nullFlavo MNA [id number] Memoria 21:15:00 21:15:00 Pre-Reg r Neurology 09 l [place] 2020-10-11 2020-10-11 Ambulatory nullFlavo MNA [id number] Memoria 21:15:00 21:15:00 Pre-Reg r Neurology 09 l Lana [place] 2020-10-11 2020-10-11 Outpatient MHIE MHIE [id number] Memoria 15:15:00 15:15:00 09 [place] 2020-10-11 2020-10-11 [facility] [id number] 15:15:00 15:15:00 Jeffrey Daya [place] 2020-09-29 2020-09-29 Outpatient STLMLC [facility] [id number] Common 00:00:00 00:00:00 [facility] 2020-09-05 2020-09-06 Observatio nullFlavo [facility] [id number] Memoria 02:36:00 21:43:00 sherif r [place] 40 [facility] 2020-09-05 2020-09-06 Observatio nullFlavo [facility] [id number] Memoria 02:36:00 21:43:00 sherif Carter 40 [facility] 2020-09-04 2020-09-06 Outpatient Nae [facility] [id number] 20:36:00 15:43:00 Vincent Dorian Chu 2020-09-04 2020-09-04 Outpatient Nae [facility] [id number] 20:36:00 20:36:00 Vincent Dorian Chu 2020-08-24 2020-08-24 Ambulatory nullFlavo MNA [id number] Memoria 19:15:00 19:15:00 Pre-Reg r Neurology 08 l [place] 2020-08-24 2020-08-24 Ambulatory nullFlavo MNA [id number] Memoria 19:15:00 19:15:00 Pre-Reg r Neurology 08 l [facility] 2020-08-24 2020-08-24 Outpatient MHIE IE [id number] Memoria 13:15:00 13:15:00 08 lavelle Carter 2020-08-24 2020-08-24 Outpatient SahilteaGOSIASCHER [facility] [id number] 13:15:00 13:15:00 Jeffrey 08 [place] 2020-06-28 2020-06-28 Emergency Miller, [facility] [id number] Univers 11:51:00 15:02:00 Sariah [place] 350.1.13.10 i ty of [place] 4.2.7.2.686 [facility] [id number] [facility] 084 [place] 2020-06-28 2020-06-28 Emergency [place]in, [facility] [id number] 11:51:00 15:02:00 Sariah Amin 350.1.13.10 [place] 4.2.7.2.686 [place] [id number] [facility] 2020-05-25 2020-05-26 Outpatient nullFlavo MNA [id number] Memoria 18:45:00 04:59:59 r Neurology 07 l [place] 2020-05-25 2020-05-26 Outpatient nullFlavo MNA [id number] Memoria 18:45:00 04:59:59 r Neurology 07 l Lana Raul 2020-05-25 2020-05-25 Outpatient PRUDENCIO GarciaNMSCHER [facility] [id number] 13:45:00 23:59:59 Jeffreyfrancisco Shafer 2020-05-25 2020-05-25 Outpatient MHIE IE [id number] Memoria 13:45:00 13:45:00 07 l [place] 2020-03-30 2020-03-30 Ambulatory nullFlavo MNA [id number] Memoria 20:15:00 20:15:00 Pre-Reg r Neurology 05 l [place] 2020-03-30 2020-03-30 Ambulatory nullFlavo MNA [id number] Memoria 20:15:00 20:15:00 Pre-Reg r Neurology 05 l [place] 2020-03-30 2020-03-30 Outpatient MHIE IE [id number] Memoria 15:15:00 15:15:00 05 l Raul 2020-03-30 2020-03-30 Outpatient Jose, [facility] [id number] 15:15:00 15:15:00 Jeffrey 05 [place] 2020-03-24 2020-03-25 Outpatient nullFlavo MNA [id number] Memoria 14:00:00 04:59:59 r Neurology 06 l Lana Carter 2020-03-24 2020-03-25 Outpatient nullFlavo MNA [id number] Memoria 14:00:00 04:59:59 r Neurology 06 l Lana Carter 2020-03-24 2020-03-24 Outpatient Jose, MHMISCHER MHNMSCHER [id number] 09:00:00 23:59:59 Jeffrey 06 [place] 2020-03-24 2020-03-24 Outpatient MHIE MHIE [id number] Memoria 09:00:00 09:00:00 06 l [place] 2020-02-19 2020-02-19 Emergency [facility], [facility] [id number] [facility] [place] 14:18:56 16:04:00 Maria Luisa Amin [id number] ity of [place] 4.2.7.2.686 [facility] [id number] [address] 2020-02-19 2020-02-19 Emergency [facility], [facility] [id number] 14:18:56 16:04:00 Maria Luisa Aimn 350.1.13.[address] [place] [address] [place] [address] [id number] [facility] 2019-12-11 2019-12-11 Outpatient Olivia-Mbayo VFP VFP [id number] [facility] 06:48:00 06:48:00 _A_AH [id number] Family Practic e 2019-12-11 2019-12-11 Outpatient Olivia-Mbayo VFP VFP [id number] [facility] 06:48:00 06:48:00 _A_AH [id number] Family Practic e 2019-12-09 2019-12-10 Emergency [facility] [id number] [facility] [place] 21:28:34 00:05:00 Timi Amin 350.1.13.10 i ty of [place] 4.2.7.2.[address] [place] [id number] 2019-12-09 2019-12-10 Emergency X TIMOTHY, [facility] ERT [id number] 21:28:34 00:05:00 TIMI dominique [facility] 2019-12-09 2019-12-10 [facility] [id number] 21:28:34 00:05:00 Timi Amin [id number] Miguel [id number] [place] [id number] [facility] 2019-11-19 2019-11-19 Outpatient Olivia-Mbayo VFP VFP [id number] [facility] 07:16:00 07:16:00 _A_AH [id number] Family Practic e 2019-09-16 2019-09-16 Ambulatory nullFlavo MNA [id number] [facility] 21:00:00 21:00:00 Pre-Reg r Neurology 04 l [place] Raul 2019-09-16 2019-09-16 Ambulatory nullFlavo MNA [id number] Memoria 21:00:00 21:00:00 Pre-Reg r Neurology 04 l L[place] Raul 2019-09-16 2019-09-16 Outpatient MHIE MHIE [id number] [facility] 15:00:00 15:00:00 04 lavelle Carter 2019-09-16 2019-09-16 Outpatient GOSIA GarciaSCHER MHMISCHER [id number] 15:00:00 15:00:00 Jeffrey Sonia Hollis 2019-07-24 2019-07-25 Outpatient nullFlavo MNA [id number] Memoria 19:15:00 04:59:59 r Neurology 03 l Lana Carter 2019-07-24 2019-07-25 Outpatient nullFlavo MNA [id number] Memoria 19:15:00 04:59:59 r Neurology 03 l Lana Carter 2019-07-24 2019-07-24 Outpatient GOSIA GarciaSCHER MHMISCHER [id number] 14:15:00 23:59:59 Jeffrey Kings Hollis 2019-07-24 2019-07-24 Outpatient MHIE MHIE [id number] Memoria 14:15:00 14:15:00 03 lavelle Carter 2019-05-21 2019-05-22 Outpatient nullFlavo MNA [id number] Memoria 19:30:00 04:59:59 r Neurology 02 l Lana Carter 2019-05-21 2019-05-22 Outpatient nullFlavo MNA [id number] Memoria 19:30:00 04:59:59 r Neurology 02 l Lana Carter 2019-05-21 2019-05-21 Outpatient Jose [facility] [id number] 14:30:00 23:59:59 Jeffrey 02 Hollis 2019-05-21 2019-05-21 Outpatient MHIE IE [id number] Memoria 14:30:00 14:30:00 02 lavelle Carter 2019-03-21 2019-03-22 Outpatient nullFlavo MNA [id number] Memoria 19:30:00 04:59:59 r Neurology 01 l Lana Raul 2019-03-21 2019-03-22 Outpatient nullFlavo MNA [id number] Memoria 19:30:00 04:59:59 r Neurology 01 [place] 2019-03-21 2019-03-21 [id number] 14:30:00 23:59:59 Jeffrey Hollis 2019-03-21 2019-03-21 Outpatient MHIE IE [id number] Memoria 14:30:00 14:30:00 01 lavelle [place] 2019-02-21 2019-02-22 Outpatient nullFlavo MNA [id number] Memoria 20:00:00 04:59:59 r Neurology 00 l [place] 2019-02-21 2019-02-22 Outpatient nullFlavo MNA [id number] Memoria 20:00:00 04:59:59 r Neurology 00 l L[place] 2019-02-21 2019-02-21 [facility] [id number] 15:00:00 23:59:59 Jeffrey 00 Hollis Results Test Description Test Time Test Comments Results Result Comments Source CHEMISTRY 2022-11-22 13:17:00 Test Item Value Reference Range Interpretation Comme nts Glucose Lvl (test code = Glucose Lvl) 65 70-99 [facility]JA1757[facility]85 13:17:00 Test Item Value Reference Range Interpretation Comments BUN (test code = BUN) 39 7-22 [facility]LxcqzvkISXRVGQTG0753-64-64 13:17:00 Test Item Value Reference Range Interpretation Comments Creatinine Lvl (test code = Creatinine 2.03 0.50-1.40 Lvl) [facility] CenterWpfntxuWPGBBACRD1622-86-64 13:17:00 Test Item Value Reference Range Interpretation Comments Sodium Lvl (test code = Sodium Lvl) 139 135-145 [facility] CenterChjzlprNUWVRPQWS4614-45-53 13:17:00 Test Item Value Reference Range Interpretation Comments Potassium Lvl (test code = Potassium 4.7 3.5-5.1 Lvl) [facility] CenterCenwaqyRMKVFGKJD9868-94-48 13:17:00 Test Item Value Reference Range Interpretation Comments Chloride Lvl (test code = Chloride Lvl) 107 95-109 [facility] CenterVegvrpxTAMXTMPDD0182-04-13 13:17:00 Test Item Value Reference Range Interpretation Comments CO2 (test code = CO2) 26 24-32 [facility] CenterEbynemlWDLBTDRQQ5917-02-53 13:17:00 Test Item Value Reference Range Interpretation Comments Calcium Lvl (test code = Calcium Lvl) 8.1 8.5-10.5 [facility] CenterSppqwaaVTDNHENBV8650-09-91 13:17:00 Test Item Value Reference Range Interpretation Comments AGAP (test code = AGAP) 10.7 10.0-20.0 [facility] CenterGhrkphxEFDJVBVPE8614-25-33 13:17:00 Test Item Value Reference Range Interpretation Comments eGFR (test code = eGFR) 24 [facility] CenterSodysijXRCOQNOFE7656-65-54 13:17:00 Test Item Value Reference Range Interpretation Comments Ca Ion WB (test code = Ca Ion WB) 1.06 1.05-1.25 [place] 441683-02-22 13:17:00 Test Item Value Reference Range Interpretation Comments Ca Ion at pH 7.4 WB (test code = Ca Ion 1.03 1.05-1.25 at pH 7.4 WB) [facility] CenterMaqtwmeZGXOJPYDY1571-29-38 13:17:00 Test Item Value Reference Range Interpretation Comments Magnesium Lvl (test code = Magnesium 2.7 1.8-2.4 Lvl) [facility] CenterAuweleqSLKTPOAVN7959-79-38 13:17:00 Test Item Value Reference Range Interpretation Comments Phosphorus (test code = Phosphorus) 3.9 2.5-4.5 [facility] CenterSkkgrpkBULMSOLNOE2330-78-96 13:17:00 Test Item Value Reference Range Interpretation Comments Segs (test code = Segs) 54.4 45.0-75.0 [place] 034213-02-22 13:17:00 Test Item Value Reference Range Interpretation Comments Lymphocytes (test code = Lymphocytes) 29.3 20.0-40.0 [place] [address]-02-22 13:17:00 Test Item Value Reference Range Interpretation Comments Monocytes (test code = Monocytes) 10.5 2.0-12.0 [place] 034213-02-22 13:17:00 Test Item Value Reference Range Interpretation Comments Eosinophils (test code = 5.0 See_Comment [A utomated message] The Eosinophils) system which ge nerated this result tra nsmitted reference range : <=4.0. The reference r christiano was not used to int erpret this result as normal/abnormal . [place] 034213-02-22 13:17:00 Test Item Value Reference Range Interpretation Comments Basophils (test code = 0.8 See_Comment [Aut omated message] The Basophils) system which ge nerated this result tra nsmitted reference range : <=1.0. The reference r christiano was not used to int erpret this result as normal/abnormal . [place] 034213-02-22 13:17:00 Test Item Value Reference Range Interpretation Comments Neutrophils # (test code = Neutrophils 4.1 1.5-8.1 #) [place] 034213-02-22 13:17:00 Test Item Value Reference Range Interpretation Comments Lymphocytes # (test code = Lymphocytes 2.2 1.0-5.5 #) [place] [address]-02-22 13:17:00 Test Item Value Reference Range Interpretation Comments Monocytes # (test code 0.8 See_Comment [Aut omated message] The = Monocytes #) system which generated this result tra nsmitted reference range : <=0.8. The reference r christiano was not used to int erpret this result as normal/abnormal . [place] 034213-02-22 13:17:00 Test Item Value Reference Range Interpretation Comments Eosinophils # (test code 0.4 See_Comment [A utomated message] The = Eosinophils #) system wh h generated this result tra nsmitted reference range : <=0.5. The reference r christiano was not used to int erpret this result as normal/abnormal . [place] 034213-02-22 13:17:00 Test Item Value Reference Range Interpretation Comments Basophils # (test code 0.1 See_Comment [Aut omated message] The = Basophils #) system which generated this result tra nsmitted reference range : <=0.2. The reference r christiano was not used to int erpret this result as normal/abnormal . [facility] CenterCkqgfldJGOFJFFJNQ4987-77-67 13:17:00 Test Item Value Reference Range Interpretation Comments WBC (test code = WBC) 7.5 3.7-10.4 [place] 034213-02-22 13:17:00 Test Item Value Reference Range Interpretation Comments RBC (test code = RBC) 3.30 4.20-5.40 [place] 034213-02-22 13:17:00 Test Item Value Reference Range Interpretation Comments Hgb (test code = Hgb) 9.9 12.0-16.0 [place] 034213-02-22 13:17:00 Test Item Value Reference Range Interpretation Comments Hct (test code = Hct) 30.3 36.0-48.0 [place] 034213-02-22 13:17:00 Test Item Value Reference Range Interpretation Comments MCV (test code = MCV) 91.8 80.0-98.0 [place] 034213-02-22 13:17:00 Test Item Value Reference Range Interpretation Comments MCH (test code = MCH) 30.0 pg 27.0-31.0 [place] 034213-02-22 13:17:00 Test Item Value Reference Range Interpretation Comments MCHC (test code = MCHC) 32.7 32.0-36.0 [place] [address]-02-22 13:17:00 Test Item Value Reference Range Interpretation Comments RDW (test code = RDW) 14.4 11.5-14.5 [place] 034213-02-22 13:17:00 Test Item Value Reference Range Interpretation Comments Platelet (test code = Platelet) 136 133-450 [place] 034213-02-22 13:17:00 Test Item Value Reference Range Interpretation Comments MPV (test code = MPV) 8.7 7.4-10.4 [facility]KrhsxdqIUOCTMHME9626-80-39 15:39:00 Test Item Value Reference Range Interpretation Comments U Amph Scr (test code Negative *NA*(11/21/22 = U Amph Scr) 9:39 AM) [facility] CenterJljhqhtEGYDWOKSZ2639-48-77 15:39:00 Test Item Value Reference Range Interpretation Comments U Analilia Scr (test code Positive *ABN*(11/21/22 = U Analilia Scr) 9:39 AM) [facility] CenterHkanybpHDTTPSQIQ2348-74-45 15:39:00 Test Item Value Reference Range Interpretation Comments U Benzodiaz Scr (test Negative *NA*(11/21/22 code = U Benzodiaz Scr) 9:39 AM) [facility] CenterJcmbqvsUINGKDLFE0028-46-32 15:39:00 Test Item Value Reference Range Interpretation Comments U Cocaine Scr (test Negative *NA*(11/21/22 code = U Cocaine Scr) 9:39 AM) [facility] CenterVxqdncnEVJSLHXKH8957-99-08 15:39:00 Test Item Value Reference Range Interpretation Comments U Cannab Scr (test Negative *NA*(11/21/22 code = U Cannab Scr) 9:39 AM) [facility]BIADEXOP2719-[facility]-32 15:39:00 Test Item Value Reference Range Interpretation Comments U Opiate Scr (test Positive *ABN*(11/21/22 code = U Opiate Scr) 9:39 AM) [facility] HospitalUvzbwcpSOMDJAQCD0020-47-00 15:39:00 Test Item Value Reference Range Interpretation Comments U Phencyclidine Scr (test Negative code = U Phencyclidine *NA*(11/21/22 9:39 Scr) AM) [facility] CenterBbaiirjZCICQQMJL9535-41-11 15:39:00 Test Item Value Reference Range Interpretation Comments UDS Note (test code = See Note (11/21/22 9:39 UDS Note) AM) [facility] HospitalOmrdrprWMJDVQRWSL1418-71-43 15:39:00 Test Item Value Reference Range Interpretation Comments Coronavirus (COVID-19) Not Detected (11/21/22 JONATHAN (test code = 9:39 AM) Coronavirus (COVID-19) JONATHAN) [facility] CenterannURINE AND [id number] 15:39:00 Test Item Value Reference Range Interpretation Comments UA Color (test code = Light Yellow UA Color) *NA*(11/21/22 9:39 AM) [facility] AND [id number] 15:39:00 Test Item Value Reference Range Interpretation Comments UA Turbidity (test code = Clear (11/21/22 9:39 UA Turbidity) AM) [facility] AND [id number] 15:39:00 Test Item Value Reference Range Interpretation Comments UA Spec Grav (test code = UA Spec 1.014 1 Grav) [facility] AND [id number] 15:39:00 Test Item Value Reference Range Interpretation Comments UA pH (test code = UA pH) 6.0 1 5.0-8.0 [facility] AND [id number] 15:39:00 Test Item Value Reference Range Interpretation Comments UA Protein (test code = UA Protein) 30 mg/dL [facility] AND [id number] 15:39:00 Test Item Value Reference Range Interpretation Comments UA Glucose (test code = UA Negative mg/dL Glucose) [facility] AND [id number] 15:39:00 Test Item Value Reference Range Interpretation Comments UA Ketones (test code = UA Negative mg/dL Ketones) [facility] AND [id number] 15:39:00 Test Item Value Reference Range Interpretation Comments UA Bili (test code = Negative *NA*(11/21/22 UA Bili) 9:39 AM) [facility] AND [id number] 15:39:00 Test Item Value Reference Range Interpretation Comments UA Blood (test code = Negative (11/21/22 9:39 UA Blood) AM) [facility] AND [id number] 15:39:00 Test Item Value Reference Range Interpretation Comments UA Urobilinogen (test code = UA no gt 0.1-1.0 Urobilinogen) [facility] AND [id number] 15:39:00 Test Item Value Reference Range Interpretation Comments UA Nitrite (test code Negative (11/21/22 9:39 = UA Nitrite) AM) [facility] AND [id number] 15:39:00 Test Item Value Reference Range Interpretation Comments UA Leuk Est (test Negative (11/21/22 9:39 code = UA Leuk Est) AM) [facility] AND [id number] 15:39:00 Test Item Value Reference Range Interpretation Comments UA Sq Epi (test code = UA Sq Occasional /LPF Epi) [facility] AND [id number] 15:39:00 Test Item Value Reference Range Interpretation Comments UA WBC (test code = no gt See_Comment [Automa sheba message] The UA WBC) system which ge nerated this result transmit sheba reference range : <=5. The reference range was not used to interpr et this result as edy l/abnormal. [facility] AND [id number] 15:39:00 Test Item Value Reference Range Interpretation Comments UA RBC (test code = no gt See_Comment [Automa sheba message] The UA RBC) system which ge nerated this result transmit sheba reference range : <=2. The reference range was not used to interpr et this result as edy l/abnormal. [facility] M360LOHAS outdoors ZGKXPRM6548-64-99 12:50:00 Test Item Value Reference Range Interpretation Comments ABO/Rh (test code = ABO/Rh) O POS [facility] M360LOHAS outdoors ZHOTDKG8713-77-73 12:50:00 Test Item Value Reference Range Interpretation Comments Antibody Scrn (test Negative (11/21/22 6:50 code = Antibody Scrn) AM) [facility] CenterTlxijsaKITYOIIDR9495-35-67 12:50:00 Test Item Value Reference Range Interpretation Comments Ethanol Lvl (test code = Ethanol Lvl) no gt [facility] NvjiroeITYRFQOGZ5371-29-65 12:50:00 Test Item Value Reference Range Interpretation Comments Etoh (%) (test code = Etoh (%)) no gt [facility] TacqxnoMTWLJUPHX4065-77-48 12:50:00 Test Item Value Reference Range Interpretation Comments Lactic Acid Lvl (test code = Lactic 0.7 0.5-2.2 Acid Lvl) [facility] CenterWeohydjOKXUANHLB9026-95-03 12:50:00 Test Item Value Reference Range Interpretation Comments Total Protein (test code = Total 6.1 6.4-8.4 Protein) [facility] CenterJekmwxrTIBXPPFBW2550-42-44 12:50:00 Test Item Value Reference Range Interpretation Comments Albumin Lvl (test code = Albumin Lvl) 2.9 3.5-5.0 [facility] CenterTfaohmvWRLAIFSNL9857-44-17 12:50:00 Test Item Value Reference Range Interpretation Comments Globulin (test code = Globulin) 3.2 2.7-4.2 [facility] CenterIasgekrEQQJJDMIK4318-02-17 12:50:00 Test Item Value Reference Range Interpretation Comments A/G Ratio (test code = A/G Ratio) 0.9 1 0.7-1.6 [facility] CenterOeuuhwjSEZMJDCWX6301-19-62 12:50:00 Test Item Value Reference Range Interpretation Comments ALT (test code = ALT) 16 See_Comment [Auto mated message] The system which ge nerated this result transmit sheba reference range : <=65. The reference range was not used to interpr et this result as edy l/abnormal. [facility] CenterXasybisRVCQZHNIK5623-00-35 12:50:00 Test Item Value Reference Range Interpretation Comments AST (test code = AST) 15 See_Comment [Auto mated message] The system which ge nerated this result transmit sheba reference range : <=37. The reference range was not used to interpr et this result as edy l/abnormal. [facility] CenterVfqndlnWZEWYRIFZ5194-70-08 12:50:00 Test Item Value Reference Range Interpretation Comments Alk Phos (test code = Alk Phos) 96 39-136 [facility] CenterAhtjblzLGJHDWPNS3381-95-75 12:50:00 Test Item Value Reference Range Interpretation Comments Bili Total (test code = Bili Total) 0.2 0.2-1.3 [facility]GytewhnZWFSNLMHR8898-72-10 12:50:00 Test Item Value Reference Range Interpretation Comments Bili Direct (test code no gt See_Comment [Aut omated message] The = Bili Direct) system which generated this result tra nsmitted reference range : <=0.3. The reference r christiano was not used to int erpret this result as edy l/abnormal. [facility] CenterXkwbileWRMMNTMFW2854-04-05 12:50:00 Test Item Value Reference Range Interpretation Comments Bili Indirect Unable to See_Comment [Automated (test code = Bili Calculate message] T he system Indirect) which generated this result transmitted reference range : <=1.0. The reference range was not used to interpret this result as normal/abnormal . [facility] CenterLauxgbwUSLMOOXVT4955-17-11 12:50:00 Test Item Value Reference Range Interpretation Comments HS Troponin I (test code = HS Troponin 15 I) [facility] CenterDdhrjvdKGIVRNRFO3461-22-69 12:50:00 Test Item Value Reference Range Interpretation Comments pH Justin (test code = pH Justin) 7.35 1 7.28-7.42 [place] 8[address]-02-21 12:50:00 Test Item Value Reference Range Interpretation Comments pCO2 Justin (test code = pCO2 Justin) 55 38-52 [place] 441683-02-21 12:50:00 Test Item Value Reference Range Interpretation Comments pO2 Justin (test code = pO2 Justin) 43 20-49 [place] 441683-02-21 12:50:00 Test Item Value Reference Range Interpretation Comments HCO3 Justin (test code = HCO3 Justin) 30 22-26 [place] 441683-02-21 12:50:00 Test Item Value Reference Range Interpretation Comments BE Justin (test code = BE Justin) 3 -2-2 [facility] CenterAdixckyRQPGBQMMI2237-12-78 12:50:00 Test Item Value Reference Range Interpretation Comments O2 Sat Justin (calc) (test code = O2 Sat 75.9 40.0-70.0 Justin (calc)) [facility] CenterKykwoapSNIDPQACG1218-48-43 12:50:00 Test Item Value Reference Range Interpretation Comments Temp Justin (test code = Temp Justin) 37.0 [place] 034213-02-21 12:50:00 Test Item Value Reference Range Interpretation Comments ACT (TEG) Rapid (test code = ACT (TEG) 113 s 86-118 Rapid) [place] 034213-02-21 12:50:00 Test Item Value Reference Range Interpretation Comments Split Point Rapid (test code = Split 0.6 min Point Rapid) [place] 034213-02-21 12:50:00 Test Item Value Reference Range Interpretation Comments R-time Rapid (test code = R-time 0.7 min 0.4-0.7 Rapid) [place] 034213-02-21 12:50:00 Test Item Value Reference Range Interpretation Comments K-time Rapid (test code = K-time 1.1 min 0.6-2.3 Rapid) [place] [address]-02-21 12:50:00 Test Item Value Reference Range Interpretation Comments Angle Rapid (test code = Angle 78 degrees 64-80 Rapid) [place] 034213-02-21 12:50:00 Test Item Value Reference Range Interpretation Comments Max Amplitude Rapid (test code = Max 65 mm 52-71 Amplitude Rapid) [facility] CenterYrrhadnVMHWGXTAPE9467-36-06 12:50:00 Test Item Value Reference Range Interpretation Comments G-value Rapid (test code = G-value 9.2 5.0-11.6 Rapid) [place] 034213-02-21 12:50:00 Test Item Value Reference Range Interpretation Comments Estimated % Lysis Rapid 0.0 See_Comment [Au tomated message] The (test code = Estimated syste m which generated % Lysis Rapid) this result t ransmitted reference range : <=7.5. The reference r christiano was not used to int erpret this result as normal/abnormal . [place] 034213-02-21 12:50:00 Test Item Value Reference Range Interpretation Comments Plt Morph (test code = See Note 1(11/21/22 Plt Morph) 6:50 AM) [place] 034213-02-21 12:50:00 Test Item Value Reference Range Interpretation Comments Stomatocyte (test code = Stomatocyte) slight [place] [id number] 12:25:01 Test Item Value Reference Range Interpretation Comments RADRPT (test code = EXAM: XR RIGHT KNEE 3 RADRPT) VIEWS DATE: 11/21/2022 6:10INDICATION: - Trauma after fallCOMPARISON: None.TECHNIQUE: 3 views of the kneeFINDINGS: No acute fracture or malalignment is identified. 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 The hardware appears intact. There is no perihardware lucency identified.No knee joint effusion is present. No soft tissue abnormality is identified.IMPRESSION: 1. No acute abnormality.2. 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 Sagittal and coronal reformats.IV contrast: NoneDLP: Refer to CT protocol formFINDINGS: Unchanged small amounts of subarachnoid hemorrhage along the left frontal sulci adjacent to the falx. Additional trace subdural hemorrhage is seen along the right posterior falx and layering along the tentorium. No significant midline shift.Moderate microvascular ischemic changes and volume loss.Left posterior parietal scalp laceration and contusion. Left sphenoid sinus mucosal thickening IMPRESSION:1. Unchanged subarachnoid hemorrhage along the left frontal sulci adjacent to the falx.2. Unchanged trace subdural hemorrhage along the right posterior falx and layering along the tentorium. No significant midline shift. [facility]2020-12-07 10:24:00 Test Item Value Reference Range Interpretation Comments Glucose Lvl (test code = Glucose Lvl) 66 70-99 [facility]2020-12-07 10:24:00 Test Item Value Reference Range Interpretation Comments BUN (test code = BUN) 19 7-22 [facility]2020-12-07 10:24:00 Test Item Value Reference Range Interpretation Comments Creatinine Lvl (test code = Creatinine 1.82 0.50-1.40 Lvl) [facility]2020-12-07 10:24:00 Test Item Value Reference Range Interpretation Comments Sodium Lvl (test code = Sodium Lvl) 139 135-145 [facility]2020-12-07 10:24:00 Test Item Value Reference Range Interpretation Comments Potassium Lvl (test code = Potassium 4.2 3.5-5.1 Lvl) [facility]2020-12-07 10:24:00 Test Item Value Reference Range Interpretation Comments Chloride Lvl (test code = Chloride Lvl) 105 95-109 [facility]2020-12-07 10:24:00 Test Item Value Reference Range Interpretation Comments CO2 (test code = CO2) 28 24-32 [facility]2020-12-07 10:24:00 Test Item Value Reference Range Interpretation Comments Calcium Lvl (test code = Calcium Lvl) 8.2 8.5-10.5 [facility]2020-12-07 10:24:00 Test Item Value Reference Range Interpretation Comments AGAP (test code = AGAP) 10.2 10.0-20.0 [facility]2020-12-07 10:24:00 Test Item Value Reference Range Interpretation Comments eGFR (test code = eGFR) 26 [facility] CenterXbflpmcORSVQCVQWT0187-49-76 10:24:00 Test Item Value Reference Range Interpretation Comments Segs (test code = Segs) 70.6 45.0-75.0 [facility] CenterToaezphMQTCXLLYQT0120-47-45 10:24:00 Test Item Value Reference Range Interpretation Comments Lymphocytes (test code = Lymphocytes) 13.2 20.0-40.0 [facility] CenterTjpzuqdTVXAEAUJIZ6054-40-18 10:24:00 Test Item Value Reference Range Interpretation Comments Monocytes (test code = Monocytes) 10.9 2.0-12.0 [facility] CenterVxviatpZLDCFHXXCJ5510-54-46 10:24:00 Test Item Value Reference Range Interpretation Comments Eosinophils (test code = 4.6 See_Comment [A utomated message] The Eosinophils) system which ge nerated this result tra nsmitted reference range : <=4.0. The reference r christiano was not used to int erpret this result as normal/abnormal . [facility] CenterDnbkcyiPBMIZFOKLF7620-56-08 10:24:00 Test Item Value Reference Range Interpretation Comments Basophils (test code = 0.7 See_Comment [Aut omated message] The Basophils) system which ge nerated this result tra nsmitted reference range : <=1.0. The reference r christiano was not used to int erpret this result as normal/abnormal . [facility] CenterCkcwhzkPELXUHYIEN0956-34-80 10:24:00 Test Item Value Reference Range Interpretation Comments Neutrophils # (test code = Neutrophils 5.3 1.5-8.1 #) [facility] CenterEgeadwtNCEHLVIGHX3377-43-57 10:24:00 Test Item Value Reference Range Interpretation Comments Lymphocytes # (test code = Lymphocytes 1.0 1.0-5.5 #) [place] 034210-12-07 10:24:00 Test Item Value Reference Range Interpretation Comments Monocytes # (test code 0.8 See_Comment [Aut omated message] The = Monocytes #) system which generated this result tra nsmitted reference range : <=0.8. The reference r christiano was not used to int erpret this result as normal/abnormal . [facility] CenterGfyerabJWFSEICSHR2612-69-51 10:24:00 Test Item Value Reference Range Interpretation Comments Eosinophils # (test code 0.3 See_Comment [A utomated message] The = Eosinophils #) system whic h generated this result tra nsmitted reference range : <=0.5. The reference r christiano was not used to int erpret this result as normal/abnormal . [facility] CenterOkeifvbQODZEUFOON5198-11-27 10:24:00 Test Item Value Reference Range Interpretation Comments Basophils # (test code 0.1 See_Comment [Aut omated message] The = Basophils #) system which generated this result tra nsmitted reference range : <=0.2. The reference r christiano was not used to int erpret this result as normal/abnormal . [facility] CenterKqiakwbVFSAFTCNMX6538-83-67 10:24:00 Test Item Value Reference Range Interpretation Comments WBC (test code = WBC) 7.5 3.7-10.4 [facility] CenterKrkidrxIVACCMVXOV8355-56-32 10:24:00 Test Item Value Reference Range Interpretation Comments RBC (test code = RBC) 3.85 4.20-5.40 [facility] CenterVfaqtzqZRGGUPTZQT3234-92-87 10:24:00 Test Item Value Reference Range Interpretation Comments Hgb (test code = Hgb) 10.6 12.0-16.0 [facility] CenterSmpdkixVTBDIRWYZZ9615-44-86 10:24:00 Test Item Value Reference Range Interpretation Comments Hct (test code = Hct) 32.1 36.0-48.0 [facility] CenterRvvlvqjZMTWHLMQBC3163-85-27 10:24:00 Test Item Value Reference Range Interpretation Comments MCV (test code = MCV) 83.5 80.0-98.0 [facility] CenterQvqwkziUMRAPBXAAL6173-85-83 10:24:00 Test Item Value Reference Range Interpretation Comments MCH (test code = MCH) 27.7 pg 27.0-31.0 [facility] CenterRqfthjxZTPTIIDBIJ7472-00-58 10:24:00 Test Item Value Reference Range Interpretation Comments MCHC (test code = MCHC) 33.1 32.0-36.0 [facility] CenterWgjtoyhATMHMRBNHW6051-00-41 10:24:00 Test Item Value Reference Range Interpretation Comments RDW (test code = RDW) 16.8 11.5-14.5 [facility] CenterQrmmhmwWVUMKKLMWN9365-19-58 10:24:00 Test Item Value Reference Range Interpretation Comments Platelet (test code = Platelet) 185 133-450 [facility] CenterAndrmgtVMEQPKMRKD5860-60-48 10:24:00 Test Item Value Reference Range Interpretation Comments MPV (test code = MPV) 8.4 7.4-10.4 [facility]2020-12-07 10:24:00 Test Item Value Reference Range Interpretation Comments Glucose Lvl (test code = Glucose Lvl) 66 70-99 [place] 181100-12-07 10:24:00 Test Item Value Reference Range Interpretation Comments BUN (test code = BUN) 19 7-22 [facility]2020-12-07 10:24:00 Test Item Value Reference Range Interpretation Comments Creatinine Lvl (test code = Creatinine 1.82 0.50-1.40 Lvl) [facility]2020-12-07 10:24:00 Test Item Value Reference Range Interpretation Comments Sodium Lvl (test code = Sodium Lvl) 139 135-145 [facility]2020-12-07 10:24:00 Test Item Value Reference Range Interpretation Comments Potassium Lvl (test code = Potassium 4.2 3.5-5.1 Lvl) [facility]2020-12-07 10:24:00 Test Item Value Reference Range Interpretation Comments Chloride Lvl (test code = Chloride Lvl) 105 95-109 [facility]2020-12-07 10:24:00 Test Item Value Reference Range Interpretation Comments CO2 (test code = CO2) 28 24-32 [facility]2020-12-07 10:24:00 Test Item Value Reference Range Interpretation Comments Calcium Lvl (test code = Calcium Lvl) 8.2 8.5-10.5 [facility]2020-12-07 10:24:00 Test Item Value Reference Range Interpretation Comments AGAP (test code = AGAP) 10.2 10.0-20.0 [facility]2020-12-07 10:24:00 Test Item Value Reference Range Interpretation Comments eGFR (test code = eGFR) 26 [facility] CenterQxiurlcVTOWNBEVYB8568-55-90 10:24:00 Test Item Value Reference Range Interpretation Comments Segs (test code = Segs) 70.6 45.0-75.0 [facility] CenterDoqoyxbBGISOVXCRY5985-15-60 10:24:00 Test Item Value Reference Range Interpretation Comments Lymphocytes (test code = Lymphocytes) 13.2 20.0-40.0 [place] 034210-12-07 10:24:00 Test Item Value Reference Range Interpretation Comments Monocytes (test code = Monocytes) 10.9 2.0-12.0 [facility] CenterDwsqhixLILNVJEITS7553-13-20 10:24:00 Test Item Value Reference Range Interpretation Comments Eosinophils (test code = 4.6 See_Comment [A utomated message] The Eosinophils) system which ge nerated this result tra nsmitted reference range : <=4.0. The reference r christiano was not used to int erpret this result as normal/abnormal . [place] 034210-12-07 10:24:00 Test Item Value Reference Range Interpretation Comments Basophils (test code = 0.7 See_Comment [Aut omated message] The Basophils) system which ge nerated this result tra nsmitted reference range : <=1.0. The reference r christiano was not used to int erpret this result as normal/abnormal . [facility] CenterLfsxdijMIWZZAEOWV2004-37-08 10:24:00 Test Item Value Reference Range Interpretation Comments Neutrophils # (test code = Neutrophils 5.3 1.5-8.1 #) [facility] CenterXkqegroUWJSGYPYCO5291-64-39 10:24:00 Test Item Value Reference Range Interpretation Comments Lymphocytes # (test code = Lymphocytes 1.0 1.0-5.5 #) [facility] CenterRfsfqoqRRNISLBOFA7815-20-84 10:24:00 Test Item Value Reference Range Interpretation Comments Monocytes # (test code 0.8 See_Comment [Aut omated message] The = Monocytes #) system which generated this result tra nsmitted reference range : <=0.8. The reference r christiano was not used to int erpret this result as normal/abnormal . [facility] CenterQtjdlieCJNHKSFHKH2855-60-24 10:24:00 Test Item Value Reference Range Interpretation Comments Eosinophils # (test code 0.3 See_Comment [A utomated message] The = Eosinophils #) system whic h generated this result tra nsmitted reference range : <=0.5. The reference r christiano was not used to int erpret this result as normal/abnormal . [place] 034210-12-07 10:24:00 Test Item Value Reference Range Interpretation Comments Basophils # (test code 0.1 See_Comment [Aut omated message] The = Basophils #) system which generated this result tra nsmitted reference range : <=0.2. The reference r christiano was not used to int erpret this result as normal/abnormal . [facility] CenterXbcsmlqRNQRCZHAEQ3950-16-01 10:24:00 Test Item Value Reference Range Interpretation Comments WBC (test code = WBC) 7.5 3.7-10.4 [facility] CenterWanqzzlBXULMECGTC9309-61-92 10:24:00 Test Item Value Reference Range Interpretation Comments RBC (test code = RBC) 3.85 4.20-5.40 [facility] CenterVpyegfxDLKNNOFIUJ8432-29-04 10:24:00 Test Item Value Reference Range Interpretation Comments Hgb (test code = Hgb) 10.6 12.0-16.0 [place] 034210-12-07 10:24:00 Test Item Value Reference Range Interpretation Comments Hct (test code = Hct) 32.1 36.0-48.0 [place] 034210-12-07 10:24:00 Test Item Value Reference Range Interpretation Comments MCV (test code = MCV) 83.5 80.0-98.0 [facility] CenterZaeuqsnJRYLYXKYEH4167-07-82 10:24:00 Test Item Value Reference Range Interpretation Comments MCH (test code = MCH) 27.7 pg 27.0-31.0 [facility] CenterRwpblpeICFYFRXORO1581-47-43 10:24:00 Test Item Value Reference Range Interpretation Comments MCHC (test code = MCHC) 33.1 32.0-36.0 [facility] CenterMxsrswjVLFHTWIHAK0388-54-56 10:24:00 Test Item Value Reference Range Interpretation Comments RDW (test code = RDW) 16.8 11.5-14.5 [facility] CenterLjnkdcsHVIAVWJVGZ5503-14-79 10:24:00 Test Item Value Reference Range Interpretation Comments Platelet (test code = Platelet) 185 133-450 [facility] CenterKtakvacTZQMLUXTEZ7903-32-25 10:24:00 Test Item Value Reference Range Interpretation Comments MPV (test code = MPV) 8.4 7.4-10.4 [facility]2020-12-07 10:24:00 Test Item Value Reference Range Interpretation Comments Glucose Lvl (test code = Glucose Lvl) 66 70-99 [facility]2020-12-07 10:24:00 Test Item Value Reference Range Interpretation Comments BUN (test code = BUN) 19 7-22 [facility]2020-12-07 10:24:00 Test Item Value Reference Range Interpretation Comments Creatinine Lvl (test code = Creatinine 1.82 0.50-1.40 Lvl) [facility]2020-12-07 10:24:00 Test Item Value Reference Range Interpretation Comments Sodium Lvl (test code = Sodium Lvl) 139 135-145 [place] 181100-12-07 10:24:00 Test Item Value Reference Range Interpretation Comments Potassium Lvl (test code = Potassium 4.2 3.5-5.1 Lvl) [facility]2020-12-07 10:24:00 Test Item Value Reference Range Interpretation Comments Chloride Lvl (test code = Chloride Lvl) 105 95-109 [facility]2020-12-07 10:24:00 Test Item Value Reference Range Interpretation Comments CO2 (test code = CO2) 28 24-32 [place] 181100-12-07 10:24:00 Test Item Value Reference Range Interpretation Comments Calcium Lvl (test code = Calcium Lvl) 8.2 8.5-10.5 [facility]2020-12-07 10:24:00 Test Item Value Reference Range Interpretation Comments AGAP (test code = AGAP) 10.2 10.0-20.0 [facility]2020-12-07 10:24:00 Test Item Value Reference Range Interpretation Comments eGFR (test code = eGFR) 26 [place] 034210-12-07 10:24:00 Test Item Value Reference Range Interpretation Comments Segs (test code = Segs) 70.6 45.0-75.0 [place] 034210-12-07 10:24:00 Test Item Value Reference Range Interpretation Comments Lymphocytes (test code = Lymphocytes) 13.2 20.0-40.0 [place] 034210-12-07 10:24:00 Test Item Value Reference Range Interpretation Comments Monocytes (test code = Monocytes) 10.9 2.0-12.0 [place] 034210-12-07 10:24:00 Test Item Value Reference Range Interpretation Comments Eosinophils (test code = 4.6 See_Comment [A utomated message] The Eosinophils) system which ge nerated this result tra nsmitted reference range : <=4.0. The reference r christiano was not used to int erpret this result as normal/abnormal . [facility] CenterAiyqxckZOQSBJKYWR2079-44-04 10:24:00 Test Item Value Reference Range Interpretation Comments Basophils (test code = 0.7 See_Comment [Aut omated message] The Basophils) system which ge nerated this result tra nsmitted reference range : <=1.0. The reference r christiano was not used to int erpret this result as normal/abnormal . [facility] CenterYoocoetJSIVSJLFHL3493-95-16 10:24:00 Test Item Value Reference Range Interpretation Comments Neutrophils # (test code = Neutrophils 5.3 1.5-8.1 #) [facility] CenterWpmcrhwTBOOIMPYXE6581-78-48 10:24:00 Test Item Value Reference Range Interpretation Comments Lymphocytes # (test code = Lymphocytes 1.0 1.0-5.5 #) [facility] CenterRjvsnhfUCNZHJJHUX5656-34-34 10:24:00 Test Item Value Reference Range Interpretation Comments Monocytes # (test code 0.8 See_Comment [Aut omated message] The = Monocytes #) system which generated this result tra nsmitted reference range : <=0.8. The reference r christiano was not used to int erpret this result as normal/abnormal . [facility] CenterConuzwxWUVRYGXDQO2917-81-74 10:24:00 Test Item Value Reference Range Interpretation Comments Eosinophils # (test code 0.3 See_Comment [A utomated message] The = Eosinophils #) system whic h generated this result tra nsmitted reference range : <=0.5. The reference r christiano was not used to int erpret this result as normal/abnormal . [facility] CenterZrtfzqxNPSOWZJOQD8624-63-90 10:24:00 Test Item Value Reference Range Interpretation Comments Basophils # (test code 0.1 See_Comment [Aut omated message] The = Basophils #) system which generated this result tra nsmitted reference range : <=0.2. The reference r christiano was not used to int erpret this result as normal/abnormal . [facility] CenterHjcvtbkZEOBXNHRZV1672-52-38 10:24:00 Test Item Value Reference Range Interpretation Comments WBC (test code = WBC) 7.5 3.7-10.4 [facility] CenterVxmeojmPXXAAIIFNM8513-13-41 10:24:00 Test Item Value Reference Range Interpretation Comments RBC (test code = RBC) 3.85 4.20-5.40 [facility] CenterSeaevfpGNKATOPOTH8496-21-77 10:24:00 Test Item Value Reference Range Interpretation Comments Hgb (test code = Hgb) 10.6 12.0-16.0 [facility] CenterEqnuqwvEMRWTXJPIF2802-19-31 10:24:00 Test Item Value Reference Range Interpretation Comments Hct (test code = Hct) 32.1 36.0-48.0 [facility] CenterMufqyedDCYHRZRICV8952-58-65 10:24:00 Test Item Value Reference Range Interpretation Comments MCV (test code = MCV) 83.5 80.0-98.0 [facility] CenterNhmiykvGFAAJOCOBL7465-88-40 10:24:00 Test Item Value Reference Range Interpretation Comments MCH (test code = MCH) 27.7 pg 27.0-31.0 [facility] CenterLglkzluLXFRBYJTRB7338-23-13 10:24:00 Test Item Value Reference Range Interpretation Comments MCHC (test code = MCHC) 33.1 32.0-36.0 [facility] CenterXztgfmrTZILLSTGZM5356-15-13 10:24:00 Test Item Value Reference Range Interpretation Comments RDW (test code = RDW) 16.8 11.5-14.5 [facility] CenterZcjfcilYUQIOGMMFJ7656-81-25 10:24:00 Test Item Value Reference Range Interpretation Comments Platelet (test code = Platelet) 185 133-450 [facility] CenterDcmbfchNZMVLRQKXK3278-28-64 10:24:00 Test Item Value Reference Range Interpretation Comments MPV (test code = MPV) 8.4 7.4-10.4 [facility]2020-12-07 10:24:00 Test Item Value Reference Range Interpretation Comments Glucose Lvl (test code = Glucose Lvl) 66 70-99 [facility]2020-12-07 10:24:00 Test Item Value Reference Range Interpretation Comments BUN (test code = BUN) 19 7-22 [facility]2020-12-07 10:24:00 Test Item Value Reference Range Interpretation Comments Creatinine Lvl (test code = Creatinine 1.82 0.50-1.40 Lvl) [facility]2020-12-07 10:24:00 Test Item Value Reference Range Interpretation Comments Sodium Lvl (test code = Sodium Lvl) 139 135-145 [facility]2020-12-07 10:24:00 Test Item Value Reference Range Interpretation Comments Potassium Lvl (test code = Potassium 4.2 3.5-5.1 Lvl) [place] 181100-12-07 10:24:00 Test Item Value Reference Range Interpretation Comments Chloride Lvl (test code = Chloride Lvl) 105 95-109 [place] 181100-12-07 10:24:00 Test Item Value Reference Range Interpretation Comments CO2 (test code = CO2) 28 24-32 [place] 181100-12-07 10:24:00 Test Item Value Reference Range Interpretation Comments Calcium Lvl (test code = Calcium Lvl) 8.2 8.5-10.5 [place] 181100-12-07 10:24:00 Test Item Value Reference Range Interpretation Comments AGAP (test code = AGAP) 10.2 10.0-20.0 [place] 181100-12-07 10:24:00 Test Item Value Reference Range Interpretation Comments eGFR (test code = eGFR) 26 [place] 034210-12-07 10:24:00 Test Item Value Reference Range Interpretation Comments Segs (test code = Segs) 70.6 45.0-75.0 [place] [address]-12-07 10:24:00 Test Item Value Reference Range Interpretation Comments Lymphocytes (test code = Lymphocytes) 13.2 20.0-40.0 [place] [address]-12-07 10:24:00 Test Item Value Reference Range Interpretation Comments Monocytes (test code = Monocytes) 10.9 2.0-12.0 [place] [address]-12-07 10:24:00 Test Item Value Reference Range Interpretation Comments Eosinophils (test code = 4.6 See_Comment [A utomated message] The Eosinophils) system which ge nerated this result tra nsmitted reference range : <=4.0. The reference r christiano was not used to int erpret this result as normal/abnormal . [place] 034210-12-07 10:24:00 Test Item Value Reference Range Interpretation Comments Basophils (test code = 0.7 See_Comment [Aut omated message] The Basophils) system which ge nerated this result tra nsmitted reference range : <=1.0. The reference r christiano was not used to int erpret this result as normal/abnormal . [facility] CenterDihhrmcWRHCYTNCBN6123-30-72 10:24:00 Test Item Value Reference Range Interpretation Comments Neutrophils # (test code = Neutrophils 5.3 1.5-8.1 #) [facility] CenterOgcxzzjVDIERZKZQA9827-82-37 10:24:00 Test Item Value Reference Range Interpretation Comments Lymphocytes # (test code = Lymphocytes 1.0 1.0-5.5 #) [facility] CenterOvbrbkgHTXXUPKESL8925-00-38 10:24:00 Test Item Value Reference Range Interpretation Comments Monocytes # (test code 0.8 See_Comment [Aut omated message] The = Monocytes #) system which generated this result tra nsmitted reference range : <=0.8. The reference r christiano was not used to int erpret this result as normal/abnormal . [facility] CenterWvwfsnuWYADLLUFGM2691-59-68 10:24:00 Test Item Value Reference Range Interpretation Comments Eosinophils # (test code 0.3 See_Comment [A utomated message] The = Eosinophils #) system whic h generated this result tra nsmitted reference range : <=0.5. The reference r christiano was not used to int erpret this result as normal/abnormal . [facility] CenterZglslveBSMQJBLYCT1873-25-34 10:24:00 Test Item Value Reference Range Interpretation Comments Basophils # (test code 0.1 See_Comment [Aut omated message] The = Basophils #) system which generated this result tra nsmitted reference range : <=0.2. The reference r christiano was not used to int erpret this result as normal/abnormal . [facility] CenterEwifvzxTHCNAQEWAE3129-27-34 10:24:00 Test Item Value Reference Range Interpretation Comments WBC (test code = WBC) 7.5 3.7-10.4 [facility] CenterFqalvuwVAGQIJDHKX9716-72-56 10:24:00 Test Item Value Reference Range Interpretation Comments RBC (test code = RBC) 3.85 4.20-5.40 [facility] CenterNujzbxxVFMYJOYNMD2337-31-59 10:24:00 Test Item Value Reference Range Interpretation Comments Hgb (test code = Hgb) 10.6 12.0-16.0 [facility] CenterRotosiwLSCJCGYRDS9236-54-44 10:24:00 Test Item Value Reference Range Interpretation Comments Hct (test code = Hct) 32.1 36.0-48.0 [place] [address]-12-07 10:24:00 Test Item Value Reference Range Interpretation Comments MCV (test code = MCV) 83.5 80.0-98.0 [place] [address]-12-07 10:24:00 Test Item Value Reference Range Interpretation Comments MCH (test code = MCH) 27.7 pg 27.0-31.0 [place] [address]-12-07 10:24:00 Test Item Value Reference Range Interpretation Comments MCHC (test code = MCHC) 33.1 32.0-36.0 [place] [address]-12-07 10:24:00 Test Item Value Reference Range Interpretation Comments RDW (test code = RDW) 16.8 11.5-14.5 [place] [address]-12-07 10:24:00 Test Item Value Reference Range Interpretation Comments Platelet (test code = Platelet) 185 133-450 [place] 034210-12-07 10:24:00 Test Item Value Reference Range Interpretation Comments MPV (test code = MPV) 8.4 7.4-10.4 [facility]2020-12-07 10:24:00 Test Item Value Reference Range Interpretation Comments Glucose Lvl (test code = Glucose Lvl) 66 70-99 [facility]2020-12-07 10:24:00 Test Item Value Reference Range Interpretation Comments BUN (test code = BUN) 19 7-22 [place] 181100-12-07 10:24:00 Test Item Value Reference Range Interpretation Comments Creatinine Lvl (test code = Creatinine 1.82 0.50-1.40 Lvl) [facility]2020-12-07 10:24:00 Test Item Value Reference Range Interpretation Comments Sodium Lvl (test code = Sodium Lvl) 139 135-145 [place] 181100-12-07 10:24:00 Test Item Value Reference Range Interpretation Comments Potassium Lvl (test code = Potassium 4.2 3.5-5.1 Lvl) [facility]2020-12-07 10:24:00 Test Item Value Reference Range Interpretation Comments Chloride Lvl (test code = Chloride Lvl) 105 95-109 [place] 181100-12-07 10:24:00 Test Item Value Reference Range Interpretation Comments CO2 (test code = CO2) 28 24-32 [facility]2020-12-07 10:24:00 Test Item Value Reference Range Interpretation Comments Calcium Lvl (test code = Calcium Lvl) 8.2 8.5-10.5 [facility]2020-12-07 10:24:00 Test Item Value Reference Range Interpretation Comments AGAP (test code = AGAP) 10.2 10.0-20.0 [facility]2020-12-07 10:24:00 Test Item Value Reference Range Interpretation Comments eGFR (test code = eGFR) 26 [facility] CenterIowrjrdYMTMLAPHST6447-51-44 10:24:00 Test Item Value Reference Range Interpretation Comments Segs (test code = Segs) 70.6 45.0-75.0 [facility] CenterWscghtmDYLAHYZFBB8153-78-26 10:24:00 Test Item Value Reference Range Interpretation Comments Lymphocytes (test code = Lymphocytes) 13.2 20.0-40.0 [place] 034210-12-07 10:24:00 Test Item Value Reference Range Interpretation Comments Monocytes (test code = Monocytes) 10.9 2.0-12.0 [place] 034210-12-07 10:24:00 Test Item Value Reference Range Interpretation Comments Eosinophils (test code = 4.6 See_Comment [A utomated message] The Eosinophils) system which ge nerated this result tra nsmitted reference range : <=4.0. The reference r christiano was not used to int erpret this result as normal/abnormal . [facility] CenterYuajhhoILPADYWYFV4755-60-01 10:24:00 Test Item Value Reference Range Interpretation Comments Basophils (test code = 0.7 See_Comment [Aut omated message] The Basophils) system which ge nerated this result tra nsmitted reference range : <=1.0. The reference r christiano was not used to int erpret this result as normal/abnormal . [facility] CenterVvzydwnGKEOHGNLGI7108-63-70 10:24:00 Test Item Value Reference Range Interpretation Comments Neutrophils # (test code = Neutrophils 5.3 1.5-8.1 #) [facility] CenterNagepnrOPEMGAEYIE7478-20-08 10:24:00 Test Item Value Reference Range Interpretation Comments Lymphocytes # (test code = Lymphocytes 1.0 1.0-5.5 #) [place] [address]-12-07 10:24:00 Test Item Value Reference Range Interpretation Comments Monocytes # (test code 0.8 See_Comment [Aut omated message] The = Monocytes #) system which generated this result tra nsmitted reference range : <=0.8. The reference r christiano was not used to int erpret this result as normal/abnormal . [facility] CenterVqsnxmcNXYRDWLGUV3839-18-83 10:24:00 Test Item Value Reference Range Interpretation Comments Eosinophils # (test code 0.3 See_Comment [A utomated message] The = Eosinophils #) system whic h generated this result tra nsmitted reference range : <=0.5. The reference r christiano was not used to int erpret this result as normal/abnormal . [facility] CenterKjxksmbZAPUQSUJIL7788-94-89 10:24:00 Test Item Value Reference Range Interpretation Comments Basophils # (test code 0.1 See_Comment [Aut omated message] The = Basophils #) system which generated this result tra nsmitted reference range : <=0.2. The reference r christiano was not used to int erpret this result as normal/abnormal . [facility] CenterUuzbnavRJWHXOBAJO2248-47-89 10:24:00 Test Item Value Reference Range Interpretation Comments WBC (test code = WBC) 7.5 3.7-10.4 [facility] CenterEceolhcAGMKCQALRJ0347-52-87 10:24:00 Test Item Value Reference Range Interpretation Comments RBC (test code = RBC) 3.85 4.20-5.40 [facility] CenterPpemsbfDUNECIKVSU6235-17-21 10:24:00 Test Item Value Reference Range Interpretation Comments Hgb (test code = Hgb) 10.6 12.0-16.0 [facility] CenterKkntqkaQQIWUVHYSA3994-14-12 10:24:00 Test Item Value Reference Range Interpretation Comments Hct (test code = Hct) 32.1 36.0-48.0 [facility] CenterDnlfolvTCYVHCEKMK5316-24-62 10:24:00 Test Item Value Reference Range Interpretation Comments MCV (test code = MCV) 83.5 80.0-98.0 [place] 034210-12-07 10:24:00 Test Item Value Reference Range Interpretation Comments MCH (test code = MCH) 27.7 pg 27.0-31.0 [facility]HsfhtlpKNZWPUCVGS1284-08-48 10:24:00 Test Item Value Reference Range Interpretation Comments MCHC (test code = MCHC) 33.1 32.0-36.0 [facility] CenterWkgollrPYRWTYVDFF4843-69-32 10:24:00 Test Item Value Reference Range Interpretation Comments RDW (test code = RDW) 16.8 11.5-14.5 [facility] CenterOojzfjtTBZKDFRUVE3036-74-39 10:24:00 Test Item Value Reference Range Interpretation Comments Platelet (test code = Platelet) 185 133-450 [facility] CenterFveadepZHWXHXIMDB8537-17-54 10:24:00 Test Item Value Reference Range Interpretation Comments MPV (test code = MPV) 8.4 7.4-10.4 [facility]2020-12-07 10:24:00 Test Item Value Reference Range Interpretation Comments Glucose Lvl (test code = Glucose Lvl) 66 70-99 [facility]2020-12-07 10:24:00 Test Item Value Reference Range Interpretation Comments BUN (test code = BUN) 19 7-22 [facility]2020-12-07 10:24:00 Test Item Value Reference Range Interpretation Comments Creatinine Lvl (test code = Creatinine 1.82 0.50-1.40 Lvl) [facility]2020-12-07 10:24:00 Test Item Value Reference Range Interpretation Comments Sodium Lvl (test code = Sodium Lvl) 139 135-145 [facility]2020-12-07 10:24:00 Test Item Value Reference Range Interpretation Comments Potassium Lvl (test code = Potassium 4.2 3.5-5.1 Lvl) [facility]2020-12-07 10:24:00 Test Item Value Reference Range Interpretation Comments Chloride Lvl (test code = Chloride Lvl) 105 95-109 [facility]2020-12-07 10:24:00 Test Item Value Reference Range Interpretation Comments CO2 (test code = CO2) 28 24-32 [facility]2020-12-07 10:24:00 Test Item Value Reference Range Interpretation Comments Calcium Lvl (test code = Calcium Lvl) 8.2 8.5-10.5 [facility]2020-12-07 10:24:00 Test Item Value Reference Range Interpretation Comments AGAP (test code = AGAP) 10.2 10.0-20.0 [facility]2020-12-07 10:24:00 Test Item Value Reference Range Interpretation Comments eGFR (test code = eGFR) 26 [facility] CenterCobddgnSQFMWIZHOU6924-10-59 10:24:00 Test Item Value Reference Range Interpretation Comments Segs (test code = Segs) 70.6 45.0-75.0 [facility] CenterJytodtnPHEEPHLURL0153-06-19 10:24:00 Test Item Value Reference Range Interpretation Comments Lymphocytes (test code = Lymphocytes) 13.2 20.0-40.0 [facility] CenterQupmznvUSVDSAVIWD9595-31-67 10:24:00 Test Item Value Reference Range Interpretation Comments Monocytes (test code = Monocytes) 10.9 2.0-12.0 [facility] CenterOcpdctrUFYWPBVRAI8549-72-96 10:24:00 Test Item Value Reference Range Interpretation Comments Eosinophils (test code = 4.6 See_Comment [A utomated message] The Eosinophils) system which ge nerated this result tra nsmitted reference range : <=4.0. The reference r christiano was not used to int erpret this result as normal/abnormal . [facility] CenterSibttcpNAZXUOVACQ4840-82-03 10:24:00 Test Item Value Reference Range Interpretation Comments Basophils (test code = 0.7 See_Comment [Aut omated message] The Basophils) system which ge nerated this result tra nsmitted reference range : <=1.0. The reference r christiano was not used to int erpret this result as normal/abnormal . [facility] CenterAdhgxtwLUFIGXZXBZ8126-83-40 10:24:00 Test Item Value Reference Range Interpretation Comments Neutrophils # (test code = Neutrophils 5.3 1.5-8.1 #) [facility] CenterFmujgkwHPIVHWEUCA2584-49-60 10:24:00 Test Item Value Reference Range Interpretation Comments Lymphocytes # (test code = Lymphocytes 1.0 1.0-5.5 #) [place] 034210-12-07 10:24:00 Test Item Value Reference Range Interpretation Comments Monocytes # (test code 0.8 See_Comment [Aut omated message] The = Monocytes #) system which generated this result tra nsmitted reference range : <=0.8. The reference r christiano was not used to int erpret this result as normal/abnormal . [facility] CenterVlaothwRXRUDFMWEN0553-25-95 10:24:00 Test Item Value Reference Range Interpretation Comments Eosinophils # (test code 0.3 See_Comment [A utomated message] The = Eosinophils #) system whic h generated this result tra nsmitted reference range : <=0.5. The reference r christiano was not used to int erpret this result as normal/abnormal . [facility] CenterQjedlynSTBMRFOYJC4431-69-37 10:24:00 Test Item Value Reference Range Interpretation Comments Basophils # (test code 0.1 See_Comment [Aut omated message] The = Basophils #) system which generated this result tra nsmitted reference range : <=0.2. The reference r christiano was not used to int erpret this result as normal/abnormal . [facility] CenterNctabjrNWRGTPQSRR8530-00-48 10:24:00 Test Item Value Reference Range Interpretation Comments WBC (test code = WBC) 7.5 3.7-10.4 [place] 034210-12-07 10:24:00 Test Item Value Reference Range Interpretation Comments RBC (test code = RBC) 3.85 4.20-5.40 [facility] CenterAnsfhncUMZZRFTGIN3365-28-60 10:24:00 Test Item Value Reference Range Interpretation Comments Hgb (test code = Hgb) 10.6 12.0-16.0 [facility] CenterComxjvjCNSUWFRLQQ5559-20-23 10:24:00 Test Item Value Reference Range Interpretation Comments Hct (test code = Hct) 32.1 36.0-48.0 [facility] CenterWfbpuwaSLLMKKWWTQ1610-13-92 10:24:00 Test Item Value Reference Range Interpretation Comments MCV (test code = MCV) 83.5 80.0-98.0 [facility] CenterJwisbgpLPIVLLOGLX1668-89-39 10:24:00 Test Item Value Reference Range Interpretation Comments MCH (test code = MCH) 27.7 pg 27.0-31.0 [facility] CenterXcwbgfdJWAVPJVTIO5091-47-16 10:24:00 Test Item Value Reference Range Interpretation Comments MCHC (test code = MCHC) 33.1 32.0-36.0 [facility] CenterPftjxxrUDQHAXKXIB7573-91-15 10:24:00 Test Item Value Reference Range Interpretation Comments RDW (test code = RDW) 16.8 11.5-14.5 [facility] CenterSmqtamlRLJPTCXKHZ5896-72-80 10:24:00 Test Item Value Reference Range Interpretation Comments Platelet (test code = Platelet) 185 133-450 [facility]xy[facility]qpVDBEEPJSUD2682-99-82 10:24:00 Test Item Value Reference Range Interpretation Comments MPV (test code = MPV) 8.4 7.4-10.4 [place] 181100-12-06 09:53:13 Test Item Value Reference Range Interpretation Comments Magnesium Lvl (test code = Magnesium 2.2 1.8-2.4 Lvl) [place] 181100-12-06 09:53:13 Test Item Value Reference Range Interpretation Comments Phosphorus (test code = Phosphorus) 2.9 2.5-4.5 [place] [address]-12-06 09:53:13 Test Item Value Reference Range Interpretation Comments Glucose Lvl (test code = Glucose Lvl) 102 70-99 [place] 181100-12-06 09:53:13 Test Item Value Reference Range Interpretation Comments BUN (test code = BUN) 17 7-22 [place] 181100-12-06 09:53:13 Test Item Value Reference Range Interpretation Comments Creatinine Lvl (test code = Creatinine 1.51 0.50-1.40 Lvl) [place] 181100-12-06 09:53:13 Test Item Value Reference Range Interpretation Comments Sodium Lvl (test code = Sodium Lvl) 140 135-145 [place] 181100-12-06 09:53:13 Test Item Value Reference Range Interpretation Comments Potassium Lvl (test code = Potassium 3.5 3.5-5.1 Lvl) [place] 181100-12-06 09:53:13 Test Item Value Reference Range Interpretation Comments Chloride Lvl (test code = Chloride Lvl) 106 95-109 [place] 181100-12-06 09:53:13 Test Item Value Reference Range Interpretation Comments CO2 (test code = CO2) 29 24-32 [place] 181100-12-06 09:53:13 Test Item Value Reference Range Interpretation Comments Calcium Lvl (test code = Calcium Lvl) 8.3 8.5-10.5 [place] 181100-12-06 09:53:13 Test Item Value Reference Range Interpretation Comments AGAP (test code = AGAP) 8.5 10.0-20.0 [place] 181100-12-06 09:53:13 Test Item Value Reference Range Interpretation Comments eGFR (test code = eGFR) 33 [place] [address]-12-06 09:53:13 Test Item Value Reference Range Interpretation Comments WBC (test code = WBC) 8.7 3.7-10.4 [place] [address]-12-06 09:53:13 Test Item Value Reference Range Interpretation Comments RBC (test code = RBC) 3.96 4.20-5.40 [place] [address]-12-06 09:53:13 Test Item Value Reference Range Interpretation Comments Hgb (test code = Hgb) 10.7 12.0-16.0 [place] [address]-12-06 09:53:13 Test Item Value Reference Range Interpretation Comments Hct (test code = Hct) 32.8 36.0-48.0 [place] [address]-12-06 09:53:13 Test Item Value Reference Range Interpretation Comments MCV (test code = MCV) 83.0 80.0-98.0 [place] [address]-12-06 09:53:13 Test Item Value Reference Range Interpretation Comments MCH (test code = MCH) 26.9 pg 27.0-31.0 [place] [address]-12-06 09:53:13 Test Item Value Reference Range Interpretation Comments MCHC (test code = MCHC) 32.4 32.0-36.0 [place] [address]-12-06 09:53:13 Test Item Value Reference Range Interpretation Comments RDW (test code = RDW) 16.5 11.5-14.5 [place] [address]-12-06 09:53:13 Test Item Value Reference Range Interpretation Comments Platelet (test code = Platelet) 157 133-450 [place] [address]-12-06 09:53:13 Test Item Value Reference Range Interpretation Comments MPV (test code = MPV) 7.5 7.4-10.4 [place] [address]-12-06 09:53:13 Test Item Value Reference Range Interpretation Comments Neutrophils # (test code = Neutrophils 7.2 1.5-8.1 #) [place] [address]-12-06 09:53:13 Test Item Value Reference Range Interpretation Comments Lymphocytes # (test code = Lymphocytes 0.9 1.0-5.5 #) [facility] CenterFgkktsbIYQGIMLTRO0775-20-28 09:53:13 Test Item Value Reference Range Interpretation Comments Monocytes # (test code 0.5 See_Comment [Aut omated message] The = Monocytes #) system which generated this result tra nsmitted reference range : <=0.8. The reference r christiano was not used to int erpret this result as normal/abnormal . [place] 034210-12-06 09:53:13 Test Item Value Reference Range Interpretation Comments Basophils # (test code 0.1 See_Comment [Aut omated message] The = Basophils #) system which generated this result tra nsmitted reference range : <=0.2. The reference r christiano was not used to int erpret this result as normal/abnormal . [facility] CenterQlrcoszRGOREEXMCH9339-41-17 09:53:13 Test Item Value Reference Range Interpretation Comments Segs (test code = Segs) 83.0 45.0-75.0 [place] 034210-12-06 09:53:13 Test Item Value Reference Range Interpretation Comments Bands (test code = 0.0 See_Comment [Automat ed message] The Bands) system which ge nerated this result transmit sheba reference range : <=11.0. The reference r christiano was not used to interpr et this result as edy l/abnormal. [facility] CenterPaqiuhrTKCONAUAZE6917-49-31 09:53:13 Test Item Value Reference Range Interpretation Comments Lymphocytes (test code = Lymphocytes) 10.0 20.0-40.0 [place] 034210-12-06 09:53:13 Test Item Value Reference Range Interpretation Comments Monocytes (test code = Monocytes) 6.0 2.0-12.0 [place] [address]-12-06 09:53:13 Test Item Value Reference Range Interpretation Comments Basophils (test code = 1.0 See_Comment [Aut omated message] The Basophils) system which ge nerated this result tra nsmitted reference range : <=1.0. The reference r christiano was not used to int erpret this result as normal/abnormal . [facility] CenterYqikqbyXFODVLMRKD6196-63-49 09:53:13 Test Item Value Reference Range Interpretation Comments Atypical Lymphs (test code = Atypical 0.0 Lymphs) [place] 034210-12-06 09:53:13 Test Item Value Reference Range Interpretation Comments RBC Morph (test code = Normal (09/05/20 3:53 RBC Morph) AM) [place] [address]-12-06 09:53:13 Test Item Value Reference Range Interpretation Comments Plt Morph (test code = Normal (09/05/20 3:53 Plt Morph) AM) [place] [address]-12-06 09:53:13 Test Item Value Reference Range Interpretation Comments Magnesium Lvl (test code = Magnesium 2.2 1.8-2.4 Lvl) [place] [address]-12-06 09:53:13 Test Item Value Reference Range Interpretation Comments Phosphorus (test code = Phosphorus) 2.9 2.5-4.5 [place] [address]-12-06 09:53:13 Test Item Value Reference Range Interpretation Comments Glucose Lvl (test code = Glucose Lvl) 102 70-99 [place] [address]-12-06 09:53:13 Test Item Value Reference Range Interpretation Comments BUN (test code = BUN) 17 7-22 [place] [address]-12-06 09:53:13 Test Item Value Reference Range Interpretation Comments Creatinine Lvl (test code = Creatinine 1.51 0.50-1.40 Lvl) [place] [address]-12-06 09:53:13 Test Item Value Reference Range Interpretation Comments Sodium Lvl (test code = Sodium Lvl) 140 135-145 [place] [address]-12-06 09:53:13 Test Item Value Reference Range Interpretation Comments Potassium Lvl (test code = Potassium 3.5 3.5-5.1 Lvl) [place] [address]-12-06 09:53:13 Test Item Value Reference Range Interpretation Comments Chloride Lvl (test code = Chloride Lvl) 106 95-109 [place] [address]-12-06 09:53:13 Test Item Value Reference Range Interpretation Comments CO2 (test code = CO2) 29 24-32 [place] [address]-12-06 09:53:13 Test Item Value Reference Range Interpretation Comments Calcium Lvl (test code = Calcium Lvl) 8.3 8.5-10.5 [place] [address]-12-06 09:53:13 Test Item Value Reference Range Interpretation Comments AGAP (test code = AGAP) 8.5 10.0-20.0 [facility]2020-12-06 09:53:13 Test Item Value Reference Range Interpretation Comments eGFR (test code = eGFR) 33 [facility] CenterFgrgwbeZQYWKIFTYI1716-02-54 09:53:13 Test Item Value Reference Range Interpretation Comments WBC (test code = WBC) 8.7 3.7-10.4 [facility] CenterUzwyhkqNCGZWUREGU3872-82-56 09:53:13 Test Item Value Reference Range Interpretation Comments RBC (test code = RBC) 3.96 4.20-5.40 [place] [address]-12-06 09:53:13 Test Item Value Reference Range Interpretation Comments Hgb (test code = Hgb) 10.7 12.0-16.0 [place] 034210-12-06 09:53:13 Test Item Value Reference Range Interpretation Comments Hct (test code = Hct) 32.8 36.0-48.0 [facility] CenterJzqnvpxRXEYJOIEEB4942-14-32 09:53:13 Test Item Value Reference Range Interpretation Comments MCV (test code = MCV) 83.0 80.0-98.0 [facility] CenterWexscicOFDHGMOTBH5140-45-96 09:53:13 Test Item Value Reference Range Interpretation Comments MCH (test code = MCH) 26.9 pg 27.0-31.0 [facility] CenterSdmsbzwBJSCTPLMMJ2182-70-37 09:53:13 Test Item Value Reference Range Interpretation Comments MCHC (test code = MCHC) 32.4 32.0-36.0 [facility] CenterAaixvfuWLMARVGREI8746-24-46 09:53:13 Test Item Value Reference Range Interpretation Comments RDW (test code = RDW) 16.5 11.5-14.5 [place] [address]-12-06 09:53:13 Test Item Value Reference Range Interpretation Comments Platelet (test code = Platelet) 157 133-450 [facility] CenterGgzoumfNVYTGJSEHJ0689-01-65 09:53:13 Test Item Value Reference Range Interpretation Comments MPV (test code = MPV) 7.5 7.4-10.4 [facility] CenterTkeiytyELWJBPOFXY9360-70-50 09:53:13 Test Item Value Reference Range Interpretation Comments Neutrophils # (test code = Neutrophils 7.2 1.5-8.1 #) [address]12-06 09:53:13 Test Item Value Reference Range Interpretation Comments Lymphocytes # (test code = Lymphocytes 0.9 1.0-5.5 #) [place] [address]-12-06 09:53:13 Test Item Value Reference Range Interpretation Comments Monocytes # (test code 0.5 See_Comment [Aut omated message] The = Monocytes #) system which generated this result tra nsmitted reference range : <=0.8. The reference r christiano was not used to int erpret this result as normal/abnormal . [place] [address]-12-06 09:53:13 Test Item Value Reference Range Interpretation Comments Basophils # (test code 0.1 See_Comment [Aut omated message] The = Basophils #) system which generated this result tra nsmitted reference range : <=0.2. The reference r christiano was not used to int erpret this result as normal/abnormal . [place] [address]-12-06 09:53:13 Test Item Value Reference Range Interpretation Comments Segs (test code = Segs) 83.0 45.0-75.0 [place] [address]-12-06 09:53:13 Test Item Value Reference Range Interpretation Comments Bands (test code = 0.0 See_Comment [Automat ed message] The Bands) system which ge nerated this result transmit sheba reference range : <=11.0. The reference r christiano was not used to interpr et this result as edy l/abnormal. [place] 034210-12-06 09:53:13 Test Item Value Reference Range Interpretation Comments Lymphocytes (test code = Lymphocytes) 10.0 20.0-40.0 [place] [address]-12-06 09:53:13 Test Item Value Reference Range Interpretation Comments Monocytes (test code = Monocytes) 6.0 2.0-12.0 [place] [address]-12-06 09:53:13 Test Item Value Reference Range Interpretation Comments Basophils (test code = 1.0 See_Comment [Aut omated message] The Basophils) system which ge nerated this result tra nsmitted reference range : <=1.0. The reference r christiano was not used to int erpret this result as normal/abnormal . [place] [address]-12-06 09:53:13 Test Item Value Reference Range Interpretation Comments Atypical Lymphs (test code = Atypical 0.0 Lymphs) [place] [address]-12-06 09:53:13 Test Item Value Reference Range Interpretation Comments RBC Morph (test code = Normal (09/05/20 3:53 RBC Morph) AM) [place] [address]-12-06 09:53:13 Test Item Value Reference Range Interpretation Comments Plt Morph (test code = Normal (09/05/20 3:53 Plt Morph) AM) [place] [address]-12-06 09:53:13 Test Item Value Reference Range Interpretation Comments Magnesium Lvl (test code = Magnesium 2.2 1.8-2.4 Lvl) [address]12-06 09:53:13 Test Item Value Reference Range Interpretation Comments Phosphorus (test code = Phosphorus) 2.9 2.5-4.5 [place] [address]-12-06 09:53:13 Test Item Value Reference Range Interpretation Comments Glucose Lvl (test code = Glucose Lvl) 102 70-99 [place] [address]-12-06 09:53:13 Test Item Value Reference Range Interpretation Comments BUN (test code = BUN) 17 7-22 [place] [address]-12-06 09:53:13 Test Item Value Reference Range Interpretation Comments Creatinine Lvl (test code = Creatinine 1.51 0.50-1.40 Lvl) [place] [address]-12-06 09:53:13 Test Item Value Reference Range Interpretation Comments Sodium Lvl (test code = Sodium Lvl) 140 135-145 [place] [address]-12-06 09:53:13 Test Item Value Reference Range Interpretation Comments Potassium Lvl (test code = Potassium 3.5 3.5-5.1 Lvl) [place] [address]-12-06 09:53:13 Test Item Value Reference Range Interpretation Comments Chloride Lvl (test code = Chloride Lvl) 106 95-109 [place] 181100-12-06 09:53:13 Test Item Value Reference Range Interpretation Comments CO2 (test code = CO2) 29 24-32 [place] [address]-12-06 09:53:13 Test Item Value Reference Range Interpretation Comments Calcium Lvl (test code = Calcium Lvl) 8.3 8.5-10.5 [place] 181100-12-06 09:53:13 Test Item Value Reference Range Interpretation Comments AGAP (test code = AGAP) 8.5 10.0-20.0 [place] 181100-12-06 09:53:13 Test Item Value Reference Range Interpretation Comments eGFR (test code = eGFR) 33 [place] [address]-12-06 09:53:13 Test Item Value Reference Range Interpretation Comments WBC (test code = WBC) 8.7 3.7-10.4 [place] [address]-12-06 09:53:13 Test Item Value Reference Range Interpretation Comments RBC (test code = RBC) 3.96 4.20-5.40 [place] [address]-12-06 09:53:13 Test Item Value Reference Range Interpretation Comments Hgb (test code = Hgb) 10.7 12.0-16.0 [address]12-06 09:53:13 Test Item Value Reference Range Interpretation Comments Hct (test code = Hct) 32.8 36.0-48.0 [place] [address]-12-06 09:53:13 Test Item Value Reference Range Interpretation Comments MCV (test code = MCV) 83.0 80.0-98.0 [place] [address]-12-06 09:53:13 Test Item Value Reference Range Interpretation Comments MCH (test code = MCH) 26.9 pg 27.0-31.0 [place] [address]-12-06 09:53:13 Test Item Value Reference Range Interpretation Comments MCHC (test code = MCHC) 32.4 32.0-36.0 [place] [address]-12-06 09:53:13 Test Item Value Reference Range Interpretation Comments RDW (test code = RDW) 16.5 11.5-14.5 [place] [address]-12-06 09:53:13 Test Item Value Reference Range Interpretation Comments Platelet (test code = Platelet) 157 133-450 [place] [address]-12-06 09:53:13 Test Item Value Reference Range Interpretation Comments MPV (test code = MPV) 7.5 7.4-10.4 [place] [address]-12-06 09:53:13 Test Item Value Reference Range Interpretation Comments Neutrophils # (test code = Neutrophils 7.2 1.5-8.1 #) [facility] CenterYmfzmakIFDGIIOTJU2944-46-05 09:53:13 Test Item Value Reference Range Interpretation Comments Lymphocytes # (test code = Lymphocytes 0.9 1.0-5.5 #) [place] [address]-12-06 09:53:13 Test Item Value Reference Range Interpretation Comments Monocytes # (test code 0.5 See_Comment [Aut omated message] The = Monocytes #) system which generated this result tra nsmitted reference range : <=0.8. The reference r christiano was not used to int erpret this result as normal/abnormal . [place] [address]-12-06 09:53:13 Test Item Value Reference Range Interpretation Comments Basophils # (test code 0.1 See_Comment [Aut omated message] The = Basophils #) system which generated this result tra nsmitted reference range : <=0.2. The reference r christiano was not used to int erpret this result as normal/abnormal . [facility] CenterAkhwcmxTCGQXSHFST6280-32-69 09:53:13 Test Item Value Reference Range Interpretation Comments Segs (test code = Segs) 83.0 45.0-75.0 [place] [address]-12-06 09:53:13 Test Item Value Reference Range Interpretation Comments Bands (test code = 0.0 See_Comment [Automat ed message] The Bands) system which ge nerated this result transmit sheba reference range : <=11.0. The reference r christiano was not used to interpr et this result as edy l/abnormal. [facility] CenterXrfxwdrDUCAAQYTBV6618-42-64 09:53:13 Test Item Value Reference Range Interpretation Comments Lymphocytes (test code = Lymphocytes) 10.0 20.0-40.0 [place] [address]-12-06 09:53:13 Test Item Value Reference Range Interpretation Comments Monocytes (test code = Monocytes) 6.0 2.0-12.0 [place] [address]-12-06 09:53:13 Test Item Value Reference Range Interpretation Comments Basophils (test code = 1.0 See_Comment [Aut omated message] The Basophils) system which ge nerated this result tra nsmitted reference range : <=1.0. The reference r christiano was not used to int erpret this result as normal/abnormal . [place] [address]-12-06 09:53:13 Test Item Value Reference Range Interpretation Comments Atypical Lymphs (test code = Atypical 0.0 Lymphs) [place] [address]-12-06 09:53:13 Test Item Value Reference Range Interpretation Comments RBC Morph (test code = Normal (09/05/20 3:53 RBC Morph) AM) [place] [address]-12-06 09:53:13 Test Item Value Reference Range Interpretation Comments Plt Morph (test code = Normal (09/05/20 3:53 Plt Morph) AM) [place] [address]-12-06 09:53:13 Test Item Value Reference Range Interpretation Comments Magnesium Lvl (test code = Magnesium 2.2 1.8-2.4 Lvl) [place] [address]-12-06 09:53:13 Test Item Value Reference Range Interpretation Comments Phosphorus (test code = Phosphorus) 2.9 2.5-4.5 [place] [address]-12-06 09:53:13 Test Item Value Reference Range Interpretation Comments Glucose Lvl (test code = Glucose Lvl) 102 70-99 [place] 181100-12-06 09:53:13 Test Item Value Reference Range Interpretation Comments BUN (test code = BUN) 17 7-22 [place] 181100-12-06 09:53:13 Test Item Value Reference Range Interpretation Comments Creatinine Lvl (test code = Creatinine 1.51 0.50-1.40 Lvl) [place] 181100-12-06 09:53:13 Test Item Value Reference Range Interpretation Comments Sodium Lvl (test code = Sodium Lvl) 140 135-145 [place] [address]-12-06 09:53:13 Test Item Value Reference Range Interpretation Comments Potassium Lvl (test code = Potassium 3.5 3.5-5.1 Lvl) [place] 181100-12-06 09:53:13 Test Item Value Reference Range Interpretation Comments Chloride Lvl (test code = Chloride Lvl) 106 95-109 [place] [address]-12-06 09:53:13 Test Item Value Reference Range Interpretation Comments CO2 (test code = CO2) 29 24-32 [place] [address]-12-06 09:53:13 Test Item Value Reference Range Interpretation Comments Calcium Lvl (test code = Calcium Lvl) 8.3 8.5-10.5 [place] 181100-12-06 09:53:13 Test Item Value Reference Range Interpretation Comments AGAP (test code = AGAP) 8.5 10.0-20.0 [place] 181100-12-06 09:53:13 Test Item Value Reference Range Interpretation Comments eGFR (test code = eGFR) 33 [place] [address]-12-06 09:53:13 Test Item Value Reference Range Interpretation Comments WBC (test code = WBC) 8.7 3.7-10.4 [place] [address]-12-06 09:53:13 Test Item Value Reference Range Interpretation Comments RBC (test code = RBC) 3.96 4.20-5.40 [place] [address]-12-06 09:53:13 Test Item Value Reference Range Interpretation Comments Hgb (test code = Hgb) 10.7 12.0-16.0 [place] [address]-12-06 09:53:13 Test Item Value Reference Range Interpretation Comments Hct (test code = Hct) 32.8 36.0-48.0 [place] [address]-12-06 09:53:13 Test Item Value Reference Range Interpretation Comments MCV (test code = MCV) 83.0 80.0-98.0 [place] [address]-12-06 09:53:13 Test Item Value Reference Range Interpretation Comments MCH (test code = MCH) 26.9 pg 27.0-31.0 [place] [address]-12-06 09:53:13 Test Item Value Reference Range Interpretation Comments MCHC (test code = MCHC) 32.4 32.0-36.0 [place] [address]-12-06 09:53:13 Test Item Value Reference Range Interpretation Comments RDW (test code = RDW) 16.5 11.5-14.5 [place] 034210-12-06 09:53:13 Test Item Value Reference Range Interpretation Comments Platelet (test code = Platelet) 157 133-450 [place] [address]-12-06 09:53:13 Test Item Value Reference Range Interpretation Comments MPV (test code = MPV) 7.5 7.4-10.4 [place] [address]-12-06 09:53:13 Test Item Value Reference Range Interpretation Comments Neutrophils # (test code = Neutrophils 7.2 1.5-8.1 #) [facility]14[facility]:53:13 Test Item Value Reference Range Interpretation Comments Lymphocytes # (test code = Lymphocytes 0.9 1.0-5.5 #) [facility] CenterTcukscrXVMCXANWZR8936-34-98 09:53:13 Test Item Value Reference Range Interpretation Comments Monocytes # (test code 0.5 See_Comment [Aut omated message] The = Monocytes #) system which generated this result tra nsmitted reference range : <=0.8. The reference r christiano was not used to int erpret this result as normal/abnormal . [place] [address]-12-06 09:53:13 Test Item Value Reference Range Interpretation Comments Basophils # (test code 0.1 See_Comment [Aut omated message] The = Basophils #) system which generated this result tra nsmitted reference range : <=0.2. The reference r christiano was not used to int erpret this result as normal/abnormal . [facility] CenterHwezpcbGLMILPHLEY3437-59-92 09:53:13 Test Item Value Reference Range Interpretation Comments Segs (test code = Segs) 83.0 45.0-75.0 [place] [address]-12-06 09:53:13 Test Item Value Reference Range Interpretation Comments Bands (test code = 0.0 See_Comment [Automat ed message] The Bands) system which ge nerated this result transmit sheba reference range : <=11.0. The reference r christiano was not used to interpr et this result as edy l/abnormal. [place] 034210-12-06 09:53:13 Test Item Value Reference Range Interpretation Comments Lymphocytes (test code = Lymphocytes) 10.0 20.0-40.0 [place] [address]-12-06 09:53:13 Test Item Value Reference Range Interpretation Comments Monocytes (test code = Monocytes) 6.0 2.0-12.0 [place] [address]-12-06 09:53:13 Test Item Value Reference Range Interpretation Comments Basophils (test code = 1.0 See_Comment [Aut omated message] The Basophils) system which ge nerated this result tra nsmitted reference range : <=1.0. The reference r christiano was not used to int erpret this result as normal/abnormal . [place] [address]-12-06 09:53:13 Test Item Value Reference Range Interpretation Comments Atypical Lymphs (test code = Atypical 0.0 Lymphs) [address]12-06 09:53:13 Test Item Value Reference Range Interpretation Comments RBC Morph (test code = Normal (09/05/20 3:53 RBC Morph) AM) [address]12-06 09:53:13 Test Item Value Reference Range Interpretation Comments Plt Morph (test code = Normal (09/05/20 3:53 Plt Morph) AM) [place] [address]-12-06 09:53:13 Test Item Value Reference Range Interpretation Comments Magnesium Lvl (test code = Magnesium 2.2 1.8-2.4 Lvl) [place] 181100-12-06 09:53:13 Test Item Value Reference Range Interpretation Comments Phosphorus (test code = Phosphorus) 2.9 2.5-4.5 [place] [address]-12-06 09:53:13 Test Item Value Reference Range Interpretation Comments Glucose Lvl (test code = Glucose Lvl) 102 70-99 [place] [address]-12-06 09:53:13 Test Item Value Reference Range Interpretation Comments BUN (test code = BUN) 17 7-22 [place] [address]-12-06 09:53:13 Test Item Value Reference Range Interpretation Comments Creatinine Lvl (test code = Creatinine 1.51 0.50-1.40 Lvl) [place] 181100-12-06 09:53:13 Test Item Value Reference Range Interpretation Comments Sodium Lvl (test code = Sodium Lvl) 140 135-145 [place] [address]-12-06 09:53:13 Test Item Value Reference Range Interpretation Comments Potassium Lvl (test code = Potassium 3.5 3.5-5.1 Lvl) [place] [address]-12-06 09:53:13 Test Item Value Reference Range Interpretation Comments Chloride Lvl (test code = Chloride Lvl) 106 95-109 [place] [address]-12-06 09:53:13 Test Item Value Reference Range Interpretation Comments CO2 (test code = CO2) 29 24-32 [place] 181100-12-06 09:53:13 Test Item Value Reference Range Interpretation Comments Calcium Lvl (test code = Calcium Lvl) 8.3 8.5-10.5 [place] [address]-12-06 09:53:13 Test Item Value Reference Range Interpretation Comments AGAP (test code = AGAP) 8.5 10.0-20.0 [place] 181100-12-06 09:53:13 Test Item Value Reference Range Interpretation Comments eGFR (test code = eGFR) 33 [place] 034210-12-06 09:53:13 Test Item Value Reference Range Interpretation Comments WBC (test code = WBC) 8.7 3.7-10.4 [place] 034210-12-06 09:53:13 Test Item Value Reference Range Interpretation Comments RBC (test code = RBC) 3.96 4.20-5.40 [place] 034210-12-06 09:53:13 Test Item Value Reference Range Interpretation Comments Hgb (test code = Hgb) 10.7 12.0-16.0 [place] 034210-12-06 09:53:13 Test Item Value Reference Range Interpretation Comments Hct (test code = Hct) 32.8 36.0-48.0 [place] 034210-12-06 09:53:13 Test Item Value Reference Range Interpretation Comments MCV (test code = MCV) 83.0 80.0-98.0 [place] [address]-12-06 09:53:13 Test Item Value Reference Range Interpretation Comments MCH (test code = MCH) 26.9 pg 27.0-31.0 [place] [address]-12-06 09:53:13 Test Item Value Reference Range Interpretation Comments MCHC (test code = MCHC) 32.4 32.0-36.0 [place] [address]-12-06 09:53:13 Test Item Value Reference Range Interpretation Comments RDW (test code = RDW) 16.5 11.5-14.5 [place] [address]-12-06 09:53:13 Test Item Value Reference Range Interpretation Comments Platelet (test code = Platelet) 157 133-450 [place] [address]-12-06 09:53:13 Test Item Value Reference Range Interpretation Comments MPV (test code = MPV) 7.5 7.4-10.4 [place] [address]-12-06 09:53:13 Test Item Value Reference Range Interpretation Comments Neutrophils # (test code = Neutrophils 7.2 1.5-8.1 #) [place] 034210-12-06 09:53:13 Test Item Value Reference Range Interpretation Comments Lymphocytes # (test code = Lymphocytes 0.9 1.0-5.5 #) [place] [address]-12-06 09:53:13 Test Item Value Reference Range Interpretation Comments Monocytes # (test code 0.5 See_Comment [Aut omated message] The = Monocytes #) system which generated this result tra nsmitted reference range : <=0.8. The reference r christiano was not used to int erpret this result as normal/abnormal . [place] [address]-12-06 09:53:13 Test Item Value Reference Range Interpretation Comments Basophils # (test code 0.1 See_Comment [Aut omated message] The = Basophils #) system which generated this result tra nsmitted reference range : <=0.2. The reference r christiano was not used to int erpret this result as normal/abnormal . [facility] CenterAnqmfipPBJTULISXT0256-51-19 09:53:13 Test Item Value Reference Range Interpretation Comments Segs (test code = Segs) 83.0 45.0-75.0 [place] [address]-12-06 09:53:13 Test Item Value Reference Range Interpretation Comments Bands (test code = 0.0 See_Comment [Automat ed message] The Bands) system which ge nerated this result transmit sheba reference range : <=11.0. The reference r christiano was not used to interpr et this result as edy l/abnormal. [place] 034210-12-06 09:53:13 Test Item Value Reference Range Interpretation Comments Lymphocytes (test code = Lymphocytes) 10.0 20.0-40.0 [place] [address]-12-06 09:53:13 Test Item Value Reference Range Interpretation Comments Monocytes (test code = Monocytes) 6.0 2.0-12.0 [place] [address]-12-06 09:53:13 Test Item Value Reference Range Interpretation Comments Basophils (test code = 1.0 See_Comment [Aut omated message] The Basophils) system which ge nerated this result tra nsmitted reference range : <=1.0. The reference r christiano was not used to int erpret this result as normal/abnormal . [place] [address]-12-06 09:53:13 Test Item Value Reference Range Interpretation Comments Atypical Lymphs (test code = Atypical 0.0 Lymphs) [place] [address]-12-06 09:53:13 Test Item Value Reference Range Interpretation Comments RBC Morph (test code = Normal (09/05/20 3:53 RBC Morph) AM) [address]12-06 09:53:13 Test Item Value Reference Range Interpretation Comments Plt Morph (test code = Normal (09/05/20 3:53 Plt Morph) AM) [address]12-06 09:53:13 Test Item Value Reference Range Interpretation Comments Magnesium Lvl (test code = Magnesium 2.2 1.8-2.4 Lvl) [place] 181100-12-06 09:53:13 Test Item Value Reference Range Interpretation Comments Phosphorus (test code = Phosphorus) 2.9 2.5-4.5 [place] [address]-12-06 09:53:13 Test Item Value Reference Range Interpretation Comments Glucose Lvl (test code = Glucose Lvl) 102 70-99 [place] [address]-12-06 09:53:13 Test Item Value Reference Range Interpretation Comments BUN (test code = BUN) 17 7-22 [place] [address]-12-06 09:53:13 Test Item Value Reference Range Interpretation Comments Creatinine Lvl (test code = Creatinine 1.51 0.50-1.40 Lvl) [address]12-06 09:53:13 Test Item Value Reference Range Interpretation Comments Sodium Lvl (test code = Sodium Lvl) 140 135-145 [place] 181100-12-06 09:53:13 Test Item Value Reference Range Interpretation Comments Potassium Lvl (test code = Potassium 3.5 3.5-5.1 Lvl) [place] [address]-12-06 09:53:13 Test Item Value Reference Range Interpretation Comments Chloride Lvl (test code = Chloride Lvl) 106 95-109 [place] 181100-12-06 09:53:13 Test Item Value Reference Range Interpretation Comments CO2 (test code = CO2) 29 24-32 [place] 181100-12-06 09:53:13 Test Item Value Reference Range Interpretation Comments Calcium Lvl (test code = Calcium Lvl) 8.3 8.5-10.5 [place] 181100-12-06 09:53:13 Test Item Value Reference Range Interpretation Comments AGAP (test code = AGAP) 8.5 10.0-20.0 [place] 181100-12-06 09:53:13 Test Item Value Reference Range Interpretation Comments eGFR (test code = eGFR) 33 [place] [address]-12-06 09:53:13 Test Item Value Reference Range Interpretation Comments WBC (test code = WBC) 8.7 3.7-10.4 [place] 034210-12-06 09:53:13 Test Item Value Reference Range Interpretation Comments RBC (test code = RBC) 3.96 4.20-5.40 [place] [address]-12-06 09:53:13 Test Item Value Reference Range Interpretation Comments Hgb (test code = Hgb) 10.7 12.0-16.0 [place] [address]-12-06 09:53:13 Test Item Value Reference Range Interpretation Comments Hct (test code = Hct) 32.8 36.0-48.0 [place] [address]-12-06 09:53:13 Test Item Value Reference Range Interpretation Comments MCV (test code = MCV) 83.0 80.0-98.0 [place] [address]-12-06 09:53:13 Test Item Value Reference Range Interpretation Comments MCH (test code = MCH) 26.9 pg 27.0-31.0 [place] [address]-12-06 09:53:13 Test Item Value Reference Range Interpretation Comments MCHC (test code = MCHC) 32.4 32.0-36.0 [place] [address]-12-06 09:53:13 Test Item Value Reference Range Interpretation Comments RDW (test code = RDW) 16.5 11.5-14.5 [address]12-06 09:53:13 Test Item Value Reference Range Interpretation Comments Platelet (test code = Platelet) 157 133-450 [place] [address]-12-06 09:53:13 Test Item Value Reference Range Interpretation Comments MPV (test code = MPV) 7.5 7.4-10.4 [place] [address]-12-06 09:53:13 Test Item Value Reference Range Interpretation Comments Neutrophils # (test code = Neutrophils 7.2 1.5-8.1 #) [place] [address]-12-06 09:53:13 Test Item Value Reference Range Interpretation Comments Lymphocytes # (test code = Lymphocytes 0.9 1.0-5.5 #) [place] 034210-12-06 09:53:13 Test Item Value Reference Range Interpretation Comments Monocytes # (test code 0.5 See_Comment [Aut omated message] The = Monocytes #) system which generated this result tra nsmitted reference range : <=0.8. The reference r christiano was not used to int erpret this result as normal/abnormal . [place] [address]-12-06 09:53:13 Test Item Value Reference Range Interpretation Comments Basophils # (test code 0.1 See_Comment [Aut omated message] The = Basophils #) system which generated this result tra nsmitted reference range : <=0.2. The reference r christiano was not used to int erpret this result as normal/abnormal . [place] 034210-12-06 09:53:13 Test Item Value Reference Range Interpretation Comments Segs (test code = Segs) 83.0 45.0-75.0 [place] [address]-12-06 09:53:13 Test Item Value Reference Range Interpretation Comments Bands (test code = 0.0 See_Comment [Automat ed message] The Bands) system which ge nerated this result transmit sheba reference range : <=11.0. The reference r christiano was not used to interpr et this result as edy l/abnormal. [place] [address]-12-06 09:53:13 Test Item Value Reference Range Interpretation Comments Lymphocytes (test code = Lymphocytes) 10.0 20.0-40.0 [place] [address]-12-06 09:53:13 Test Item Value Reference Range Interpretation Comments Monocytes (test code = Monocytes) 6.0 2.0-12.0 [facility]CdjyttzMBSEYPSWJM8283-26-40 09:53:13 Test Item Value Reference Range Interpretation Comments Basophils (test code = 1.0 See_Comment [Aut omated message] The Basophils) system which ge nerated this result tra nsmitted reference range : <=1.0. The reference r christiano was not used to int erpret this result as normal/abnormal . [facility] CenterYazlkzaTMZMOEVIPK2275-29-41 09:53:13 Test Item Value Reference Range Interpretation Comments Atypical Lymphs (test code = Atypical 0.0 Lymphs) [place] [address]-12-06 09:53:13 Test Item Value Reference Range Interpretation Comments RBC Morph (test code = Normal (09/05/20 3:53 RBC Morph) AM) [place] [address]-12-06 09:53:13 Test Item Value Reference Range Interpretation Comments Plt Morph (test code = Normal (09/05/20 3:53 Plt Morph) AM) [place] 358180-12-06 09:53:00 Test Item Value Reference Range Interpretation Comments Coronavirus (COVID-19) Not Detected (09/05/20 JONATHAN (test code = 3:53 AM) Coronavirus (COVID-19) JONATHAN) [place] [address]-12-06 09:53:00 Test Item Value Reference Range Interpretation Comments Coronavirus (COVID-19) Not Detected (09/05/20 JONATHAN (test code = 3:53 AM) Coronavirus (COVID-19) JONATHAN) [place] [address]-12-06 09:53:00 Test Item Value Reference Range Interpretation Comments Coronavirus (COVID-19) Not Detected (09/05/20 JONATHAN (test code = 3:53 AM) Coronavirus (COVID-19) JONATHAN) [place] [address]-12-06 09:53:00 Test Item Value Reference Range Interpretation Comments Coronavirus (COVID-19) Not Detected (09/05/20 JONATHAN (test code = 3:53 AM) Coronavirus (COVID-19) JONATHAN) [place] [address]-12-06 09:53:00 Test Item Value Reference Range Interpretation Comments Coronavirus (COVID-19) Not Detected (09/05/20 JONATHAN (test code = 3:53 AM) Coronavirus (COVID-19) JONATHAN) [facility]:53:00 Test Item Value Reference Range Interpretation Comments Coronavirus (COVID-19) Not Detected (09/05/20 JONATHAN (test code = 3:53 AM) Coronavirus (COVID-19) JONATHAN) [place] 181100-12-06 04:34:00 Test Item Value Reference Range Interpretation Comments Glucose Lvl (test code = Glucose Lvl) 125 70-99 [facility]2020-12-06 04:34:00 Test Item Value Reference Range Interpretation Comments BUN (test code = BUN) 17 7-22 [place] 181100-12-06 04:34:00 Test Item Value Reference Range Interpretation Comments Creatinine Lvl (test code = Creatinine 1.51 0.50-1.40 Lvl) [facility]2020-12-06 04:34:00 Test Item Value Reference Range Interpretation Comments Sodium Lvl (test code = Sodium Lvl) 142 135-145 [facility]2020-12-06 04:34:00 Test Item Value Reference Range Interpretation Comments Potassium Lvl (test code = Potassium 4.0 3.5-5.1 Lvl) [facility]2020-12-06 04:34:00 Test Item Value Reference Range Interpretation Comments Chloride Lvl (test code = Chloride Lvl) 108 95-109 [facility]2020-12-06 04:34:00 Test Item Value Reference Range Interpretation Comments CO2 (test code = CO2) 30 24-32 [facility]2020-12-06 04:34:00 Test Item Value Reference Range Interpretation Comments Calcium Lvl (test code = Calcium Lvl) 7.8 8.5-10.5 [facility]2020-12-06 04:34:00 Test Item Value Reference Range Interpretation Comments AGAP (test code = AGAP) 8.0 10.0-20.0 [place] 181100-12-06 04:34:00 Test Item Value Reference Range Interpretation Comments eGFR (test code = eGFR) 33 [facility]HF[facility] 04:34:00 Test Item Value Reference Range Interpretation Comments WBC X 10x3 (test code = WBC X 10x3) 9.7 3.7-10.4 [facility] CenterOspfixrCMFWURLAGM8758-68-25 04:34:00 Test Item Value Reference Range Interpretation Comments RBC X 10x6 (test code = RBC X 10x6) 3.96 4.20-5.40 [place] 034210-12-06 04:34:00 Test Item Value Reference Range Interpretation Comments Hgb (test code = Hgb) 10.6 12.0-16.0 [place] 034210-12-06 04:34:00 Test Item Value Reference Range Interpretation Comments Hct (test code = Hct) 32.6 36.0-48.0 [facility] CenterQgddrhzMMWVHDVUYM0441-14-18 04:34:00 Test Item Value Reference Range Interpretation Comments MCV (test code = MCV) 82.3 80.0-98.0 [place] [address]-12-06 04:34:00 Test Item Value Reference Range Interpretation Comments MCH (test code = MCH) 26.6 pg 27.0-31.0 [place] 034210-12-06 04:34:00 Test Item Value Reference Range Interpretation Comments MCHC (test code = MCHC) 32.4 32.0-36.0 [facility] CenterAdlxagzLHWOFPBFGA4660-17-69 04:34:00 Test Item Value Reference Range Interpretation Comments RDW (test code = RDW) 16.8 11.5-14.5 [place] 034210-12-06 04:34:00 Test Item Value Reference Range Interpretation Comments Platelet (test code = Platelet) 178 133-450 [facility] CenterJvlribiAYXKAONNIX8807-57-75 04:34:00 Test Item Value Reference Range Interpretation Comments MPV (test code = MPV) 8.0 7.4-10.4 [place] [address]-12-06 04:34:00 Test Item Value Reference Range Interpretation Comments PT (test code = PT) 14.7 s 12.0-14.7 [place] [address]-12-06 04:34:00 Test Item Value Reference Range Interpretation Comments INR (test code = INR) 1.14 1 0.85-1.17 [place] 034210-12-06 04:34:00 Test Item Value Reference Range Interpretation Comments PTT (test code = PTT) 31.2 s 22.9-35.8 [place] 034210-12-06 04:34:00 Test Item Value Reference Range Interpretation Comments Segs (test code = Segs) 73.9 45.0-75.0 [place] 034210-12-06 04:34:00 Test Item Value Reference Range Interpretation Comments Lymphocytes (test code = Lymphocytes) 11.0 20.0-40.0 [place] 034210-12-06 04:34:00 Test Item Value Reference Range Interpretation Comments Monocytes (test code = Monocytes) 13.6 2.0-12.0 [place] [address]-12-06 04:34:00 Test Item Value Reference Range Interpretation Comments Eosinophils (test code = 0.7 See_Comment [A utomated message] The Eosinophils) system which ge nerated this result tra nsmitted reference range : <=4.0. The reference r christiano was not used to int erpret this result as normal/abnormal . [place] 034210-12-06 04:34:00 Test Item Value Reference Range Interpretation Comments Basophils (test code = 0.8 See_Comment [Aut omated message] The Basophils) system which ge nerated this result tra nsmitted reference range : <=1.0. The reference r christiano was not used to int erpret this result as normal/abnormal . [place] 034210-12-06 04:34:00 Test Item Value Reference Range Interpretation Comments Neutrophils # (test code = Neutrophils 7.2 1.5-8.1 #) [place] 034210-12-06 04:34:00 Test Item Value Reference Range Interpretation Comments Lymphocytes # (test code = Lymphocytes 1.1 1.0-5.5 #) [place] [address]-12-06 04:34:00 Test Item Value Reference Range Interpretation Comments Monocytes # (test code 1.3 See_Comment [Aut omated message] The = Monocytes #) system which generated this result tra nsmitted reference range : <=0.8. The reference r christiano was not used to int erpret this result as normal/abnormal . [place] [address]-12-06 04:34:00 Test Item Value Reference Range Interpretation Comments Eosinophils # (test code 0.1 See_Comment [A utomated message] The = Eosinophils #) system whic h generated this result tra nsmitted reference range : <=0.5. The reference r christiano was not used to int erpret this result as normal/abnormal . [facility]IfytqrfSCTQEEZFMD0343-72-03 04:34:00 Test Item Value Reference Range Interpretation Comments Basophils # (test code 0.1 See_Comment [Aut omated message] The = Basophils #) system which generated this result tra nsmitted reference range : <=0.2. The reference r christiano was not used to int erpret this result as normal/abnormal . [facility]ARD[facility]AC [id number] 04:34:00 Test Item Value Reference Range Interpretation Comments Troponin-I (test code no gt See_Comment [Auto mated message] The = Troponin-I) system which g enerated this result transmit sheba reference range : <=0.40. The reference r christiano was not used to interpr et this result as edy l/abnormal. [facility] [employer] [id number] 04:34:00 Test Item Value Reference Range Interpretation Comments Glucose Lvl (test code = Glucose Lvl) 125 70-99 [facility] [id number] 04:34:00 Test Item Value Reference Range Interpretation Comments BUN (test code = BUN) 17 7-22 [facility] [id number] 04:34:00 Test Item Value Reference Range Interpretation Comments Creatinine Lvl (test code = Creatinine 1.51 0.50-1.40 Lvl) [facility] [id number] 04:34:00 Test Item Value Reference Range Interpretation Comments Sodium Lvl (test code = Sodium Lvl) 142 135-145 [facility] [id number] 04:34:00 Test Item Value Reference Range Interpretation Comments Potassium Lvl (test code = Potassium 4.0 3.5-5.1 Lvl) [facility] [id number] 04:34:00 Test Item Value Reference Range Interpretation Comments Chloride Lvl (test code = Chloride Lvl) 108 95-109 [facility] [id number] 04:34:00 Test Item Value Reference Range Interpretation Comments CO2 (test code = CO2) 30 24-32 [facility] [facility] [id number] 04:34:00 Test Item Value Reference Range Interpretation Comments Calcium Lvl (test code = Calcium Lvl) 7.8 8.5-10.5 [facility] [id number] 04:34:00 Test Item Value Reference Range Interpretation Comments AGAP (test code = AGAP) 8.0 10.0-20.0 [facility]2020-12-06 04:34:00 Test Item Value Reference Range Interpretation Comments eGFR (test code = eGFR) 33 [facility] CenterPzoppxeSYAJOMQBXI8060-84-95 04:34:00 Test Item Value Reference Range Interpretation Comments WBC X 10x3 (test code = WBC X 10x3) 9.7 3.7-10.4 [place] 034210-12-06 04:34:00 Test Item Value Reference Range Interpretation Comments RBC X 10x6 (test code = RBC X 10x6) 3.96 4.20-5.40 [place] 034210-12-06 04:34:00 Test Item Value Reference Range Interpretation Comments Hgb (test code = Hgb) 10.6 12.0-16.0 [place] [address]-12-06 04:34:00 Test Item Value Reference Range Interpretation Comments Hct (test code = Hct) 32.6 36.0-48.0 [facility] CenterUfjuqifRQDMFOSFKZ2655-60-36 04:34:00 Test Item Value Reference Range Interpretation Comments MCV (test code = MCV) 82.3 80.0-98.0 [place] 034210-12-06 04:34:00 Test Item Value Reference Range Interpretation Comments MCH (test code = MCH) 26.6 pg 27.0-31.0 [place] 034210-12-06 04:34:00 Test Item Value Reference Range Interpretation Comments MCHC (test code = MCHC) 32.4 32.0-36.0 [place] 034210-12-06 04:34:00 Test Item Value Reference Range Interpretation Comments RDW (test code = RDW) 16.8 11.5-14.5 [place] 034210-12-06 04:34:00 Test Item Value Reference Range Interpretation Comments Platelet (test code = Platelet) 178 133-450 [facility] CenterPweoavgZZNCHOZYXN6798-73-57 04:34:00 Test Item Value Reference Range Interpretation Comments MPV (test code = MPV) 8.0 7.4-10.4 [facility] CenterHhlyqtuFAMTSPHTVW3382-61-09 04:34:00 Test Item Value Reference Range Interpretation Comments PT (test code = PT) 14.7 s 12.0-14.7 [place] 034210-12-06 04:34:00 Test Item Value Reference Range Interpretation Comments INR (test code = INR) 1.14 1 0.85-1.17 [place] 034210-12-06 04:34:00 Test Item Value Reference Range Interpretation Comments PTT (test code = PTT) 31.2 s 22.9-35.8 [place] 034210-12-06 04:34:00 Test Item Value Reference Range Interpretation Comments Segs (test code = Segs) 73.9 45.0-75.0 [place] 034210-12-06 04:34:00 Test Item Value Reference Range Interpretation Comments Lymphocytes (test code = Lymphocytes) 11.0 20.0-40.0 [place] 034210-12-06 04:34:00 Test Item Value Reference Range Interpretation Comments Monocytes (test code = Monocytes) 13.6 2.0-12.0 [place] 034210-12-06 04:34:00 Test Item Value Reference Range Interpretation Comments Eosinophils (test code = 0.7 See_Comment [A utomated message] The Eosinophils) system which ge nerated this result tra nsmitted reference range : <=4.0. The reference r christiano was not used to int erpret this result as normal/abnormal . [facility] CenterTmebyexBWBQBCSEHD4132-22-73 04:34:00 Test Item Value Reference Range Interpretation Comments Basophils (test code = 0.8 See_Comment [Aut omated message] The Basophils) system which ge nerated this result tra nsmitted reference range : <=1.0. The reference r christiano was not used to int erpret this result as normal/abnormal . [place] 034210-12-06 04:34:00 Test Item Value Reference Range Interpretation Comments Neutrophils # (test code = Neutrophils 7.2 1.5-8.1 #) [place] [address]-12-06 04:34:00 Test Item Value Reference Range Interpretation Comments Lymphocytes # (test code = Lymphocytes 1.1 1.0-5.5 #) [facility]vYTNOYRQQLH1358-59-04 04:34:00 Test Item Value Reference Range Interpretation Comments Monocytes # (test code 1.3 See_Comment [Aut omated message] The = Monocytes #) system which generated this result tra nsmitted reference range : <=0.8. The reference r christiano was not used to int erpret this result as normal/abnormal . [facility]KyhjsbpCODKHSVNTT4247-15-80 04:34:00 Test Item Value Reference Range Interpretation Comments Eosinophils # (test code 0.1 See_Comment [A utomated message] The = Eosinophils #) system whic h generated this result tra nsmitted reference range : <=0.5. The reference r christiano was not used to int erpret this result as normal/abnormal . [facility] HospitalYebftyvLUXMAAIVDJ2275-71-17 04:34:00 Test Item Value Reference Range Interpretation Comments Basophils # (test code 0.1 See_Comment [Aut omated message] The = Basophils #) system which generated this result tra nsmitted reference range : <=0.2. The reference r christiano was not used to int erpret this result as normal/abnormal . [facility]AMTCARDIAC [id number] 04:34:00 Test Item Value Reference Range Interpretation Comments Troponin-I (test code no gt See_Comment [Auto mated message] The = Troponin-I) system which g enerated this result transmit hseba reference range : <=0.40. The reference r christiano was not used to interpr et this result as edy l/abnormal. [facility] [employer] [id number] 04:34:00 Test Item Value Reference Range Interpretation Comments Glucose Lvl (test code = Glucose Lvl) 125 70-99 [facility] [id number] 04:34:00 Test Item Value Reference Range Interpretation Comments BUN (test code = BUN) 17 7-22 [facility] [employer] [id number] 04:34:00 Test Item Value Reference Range Interpretation Comments Creatinine Lvl (test code = Creatinine 1.51 0.50-1.40 Lvl) [facility] [id number] 04:34:00 Test Item Value Reference Range Interpretation Comments Sodium Lvl (test code = Sodium Lvl) 142 135-145 [facility] [id number] 04:34:00 Test Item Value Reference Range Interpretation Comments Potassium Lvl (test code = Potassium 4.0 3.5-5.1 Lvl) [place] 181100-12-06 04:34:00 Test Item Value Reference Range Interpretation Comments Chloride Lvl (test code = Chloride Lvl) 108 95-109 [place] 181100-12-06 04:34:00 Test Item Value Reference Range Interpretation Comments CO2 (test code = CO2) 30 24-32 [place] [address]-12-06 04:34:00 Test Item Value Reference Range Interpretation Comments Calcium Lvl (test code = Calcium Lvl) 7.8 8.5-10.5 [place] 181100-12-06 04:34:00 Test Item Value Reference Range Interpretation Comments AGAP (test code = AGAP) 8.0 10.0-20.0 [place] 181100-12-06 04:34:00 Test Item Value Reference Range Interpretation Comments eGFR (test code = eGFR) 33 [place] [address]-12-06 04:34:00 Test Item Value Reference Range Interpretation Comments WBC X 10x3 (test code = WBC X 10x3) 9.7 3.7-10.4 [place] 034210-12-06 04:34:00 Test Item Value Reference Range Interpretation Comments RBC X 10x6 (test code = RBC X 10x6) 3.96 4.20-5.40 [place] [address]-12-06 04:34:00 Test Item Value Reference Range Interpretation Comments Hgb (test code = Hgb) 10.6 12.0-16.0 [place] [address]-12-06 04:34:00 Test Item Value Reference Range Interpretation Comments Hct (test code = Hct) 32.6 36.0-48.0 [place] [address]-12-06 04:34:00 Test Item Value Reference Range Interpretation Comments MCV (test code = MCV) 82.3 80.0-98.0 [place] [address]-12-06 04:34:00 Test Item Value Reference Range Interpretation Comments MCH (test code = MCH) 26.6 pg 27.0-31.0 [place] [address]-12-06 04:34:00 Test Item Value Reference Range Interpretation Comments MCHC (test code = MCHC) 32.4 32.0-36.0 [place] [address]-12-06 04:34:00 Test Item Value Reference Range Interpretation Comments RDW (test code = RDW) 16.8 11.5-14.5 [place] 034210-12-06 04:34:00 Test Item Value Reference Range Interpretation Comments Platelet (test code = Platelet) 178 133-450 [place] 034210-12-06 04:34:00 Test Item Value Reference Range Interpretation Comments MPV (test code = MPV) 8.0 7.4-10.4 [place] [address]-12-06 04:34:00 Test Item Value Reference Range Interpretation Comments PT (test code = PT) 14.7 s 12.0-14.7 [place] [address]-12-06 04:34:00 Test Item Value Reference Range Interpretation Comments INR (test code = INR) 1.14 1 0.85-1.17 [place] [address]-12-06 04:34:00 Test Item Value Reference Range Interpretation Comments PTT (test code = PTT) 31.2 s 22.9-35.8 [place] [address]-12-06 04:34:00 Test Item Value Reference Range Interpretation Comments Segs (test code = Segs) 73.9 45.0-75.0 [place] 034210-12-06 04:34:00 Test Item Value Reference Range Interpretation Comments Lymphocytes (test code = Lymphocytes) 11.0 20.0-40.0 [place] 034210-12-06 04:34:00 Test Item Value Reference Range Interpretation Comments Monocytes (test code = Monocytes) 13.6 2.0-12.0 [place] [address]-12-06 04:34:00 Test Item Value Reference Range Interpretation Comments Eosinophils (test code = 0.7 See_Comment [A utomated message] The Eosinophils) system which ge nerated this result tra nsmitted reference range : <=4.0. The reference r christiano was not used to int erpret this result as normal/abnormal . [place] [address]-12-06 04:34:00 Test Item Value Reference Range Interpretation Comments Basophils (test code = 0.8 See_Comment [Aut omated message] The Basophils) system which ge nerated this result tra nsmitted reference range : <=1.0. The reference r christiano was not used to int erpret this result as normal/abnormal . [facility] HospitalBmvifddAKNOHGJZEZ4159-08-82 04:34:00 Test Item Value Reference Range Interpretation Comments Neutrophils # (test code = Neutrophils 7.2 1.5-8.1 #) [facility] HospitalGfjmwwfDEKXCNUXHL1724-80-33 04:34:00 Test Item Value Reference Range Interpretation Comments Lymphocytes # (test code = Lymphocytes 1.1 1.0-5.5 #) [facility] HospitalDluyulcERCOVTVTFK9641-98-88 04:34:00 Test Item Value Reference Range Interpretation Comments Monocytes # (test code 1.3 See_Comment [Aut omated message] The = Monocytes #) system which generated this result tra nsmitted reference range : <=0.8. The reference r christiano was not used to int erpret this result as normal/abnormal . [facility] HospitalNfbjzxkKIRBAOOVFC9263-06-06 04:34:00 Test Item Value Reference Range Interpretation Comments Eosinophils # (test code 0.1 See_Comment [A utomated message] The = Eosinophils #) system whic h generated this result tra nsmitted reference range : <=0.5. The reference r christiano was not used to int erpret this result as normal/abnormal . [facility] HospitalUyhveuhUDRVVZJCKT9925-30-35 04:34:00 Test Item Value Reference Range Interpretation Comments Basophils # (test code 0.1 See_Comment [Aut omated message] The = Basophils #) system which generated this result tra nsmitted reference range : <=0.2. The reference r christiano was not used to int erpret this result as normal/abnormal . [facility]ARD[facility]AC [id number] 04:34:00 Test Item Value Reference Range Interpretation Comments Troponin-I (test code no gt See_Comment [Auto mated message] The = Troponin-I) system which g enerated this result transmit sheba reference range : <=0.40. The reference r christiano was not used to interpr et this result as edy l/abnormal. [facility] [id number] 04:34:00 Test Item Value Reference Range Interpretation Comments Glucose Lvl (test code = Glucose Lvl) 125 70-99 [place] 181100-12-06 04:34:00 Test Item Value Reference Range Interpretation Comments BUN (test code = BUN) 17 7-22 [place] 181100-12-06 04:34:00 Test Item Value Reference Range Interpretation Comments Creatinine Lvl (test code = Creatinine 1.51 0.50-1.40 Lvl) [place] 181100-12-06 04:34:00 Test Item Value Reference Range Interpretation Comments Sodium Lvl (test code = Sodium Lvl) 142 135-145 [place] 181100-12-06 04:34:00 Test Item Value Reference Range Interpretation Comments Potassium Lvl (test code = Potassium 4.0 3.5-5.1 Lvl) [place] 181100-12-06 04:34:00 Test Item Value Reference Range Interpretation Comments Chloride Lvl (test code = Chloride Lvl) 108 95-109 [place] 181100-12-06 04:34:00 Test Item Value Reference Range Interpretation Comments CO2 (test code = CO2) 30 24-32 [place] 181100-12-06 04:34:00 Test Item Value Reference Range Interpretation Comments Calcium Lvl (test code = Calcium Lvl) 7.8 8.5-10.5 [place] 181100-12-06 04:34:00 Test Item Value Reference Range Interpretation Comments AGAP (test code = AGAP) 8.0 10.0-20.0 [place] 181100-12-06 04:34:00 Test Item Value Reference Range Interpretation Comments eGFR (test code = eGFR) 33 [place] [address]-12-06 04:34:00 Test Item Value Reference Range Interpretation Comments WBC X 10x3 (test code = WBC X 10x3) 9.7 3.7-10.4 [place] [address]-12-06 04:34:00 Test Item Value Reference Range Interpretation Comments RBC X 10x6 (test code = RBC X 10x6) 3.96 4.20-5.40 [place] [address]-12-06 04:34:00 Test Item Value Reference Range Interpretation Comments Hgb (test code = Hgb) 10.6 12.0-16.0 [place] [address]-12-06 04:34:00 Test Item Value Reference Range Interpretation Comments Hct (test code = Hct) 32.6 36.0-48.0 [place] 034210-12-06 04:34:00 Test Item Value Reference Range Interpretation Comments MCV (test code = MCV) 82.3 80.0-98.0 [place] [address]-12-06 04:34:00 Test Item Value Reference Range Interpretation Comments MCH (test code = MCH) 26.6 pg 27.0-31.0 [place] 034210-12-06 04:34:00 Test Item Value Reference Range Interpretation Comments MCHC (test code = MCHC) 32.4 32.0-36.0 [place] 034210-12-06 04:34:00 Test Item Value Reference Range Interpretation Comments RDW (test code = RDW) 16.8 11.5-14.5 [place] [address]-12-06 04:34:00 Test Item Value Reference Range Interpretation Comments Platelet (test code = Platelet) 178 133-450 [facility] CenterGnxheeaXZLXUIVGXS1794-77-98 04:34:00 Test Item Value Reference Range Interpretation Comments MPV (test code = MPV) 8.0 7.4-10.4 [place] [address]-12-06 04:34:00 Test Item Value Reference Range Interpretation Comments PT (test code = PT) 14.7 s 12.0-14.7 [place] [address]-12-06 04:34:00 Test Item Value Reference Range Interpretation Comments INR (test code = INR) 1.14 1 0.85-1.17 [place] 034210-12-06 04:34:00 Test Item Value Reference Range Interpretation Comments PTT (test code = PTT) 31.2 s 22.9-35.8 [place] [address]-12-06 04:34:00 Test Item Value Reference Range Interpretation Comments Segs (test code = Segs) 73.9 45.0-75.0 [place] [address]-12-06 04:34:00 Test Item Value Reference Range Interpretation Comments Lymphocytes (test code = Lymphocytes) 11.0 20.0-40.0 [place] [address]-12-06 04:34:00 Test Item Value Reference Range Interpretation Comments Monocytes (test code = Monocytes) 13.6 2.0-12.0 [place] 034210-12-06 04:34:00 Test Item Value Reference Range Interpretation Comments Eosinophils (test code = 0.7 See_Comment [A utomated message] The Eosinophils) system which ge nerated this result tra nsmitted reference range : <=4.0. The reference r christiano was not used to int erpret this result as normal/abnormal . [place] 034210-12-06 04:34:00 Test Item Value Reference Range Interpretation Comments Basophils (test code = 0.8 See_Comment [Aut omated message] The Basophils) system which ge nerated this result tra nsmitted reference range : <=1.0. The reference r christiano was not used to int erpret this result as normal/abnormal . [place] 034210-12-06 04:34:00 Test Item Value Reference Range Interpretation Comments Neutrophils # (test code = Neutrophils 7.2 1.5-8.1 #) [place] 034210-12-06 04:34:00 Test Item Value Reference Range Interpretation Comments Lymphocytes # (test code = Lymphocytes 1.1 1.0-5.5 #) [place] [address]-12-06 04:34:00 Test Item Value Reference Range Interpretation Comments Monocytes # (test code 1.3 See_Comment [Aut omated message] The = Monocytes #) system which generated this result tra nsmitted reference range : <=0.8. The reference r christiano was not used to int erpret this result as normal/abnormal . [place] 034210-12-06 04:34:00 Test Item Value Reference Range Interpretation Comments Eosinophils # (test code 0.1 See_Comment [A utomated message] The = Eosinophils #) system whic h generated this result tra nsmitted reference range : <=0.5. The reference r christiano was not used to int erpret this result as normal/abnormal . [place] 034210-12-06 04:34:00 Test Item Value Reference Range Interpretation Comments Basophils # (test code 0.1 See_Comment [Aut omated message] The = Basophils #) system which generated this result tra nsmitted reference range : <=0.2. The reference r christiano was not used to int erpret this result as normal/abnormal . [facility] HospitalDIAC [id number] 04:34:00 Test Item Value Reference Range Interpretation Comments Troponin-I (test code no gt See_Comment [Auto mated message] The = Troponin-I) system which g enerated this result transmit sheba reference range : <=0.40. The reference r christiano was not used to interpr et this result as edy l/abnormal. [facility] [employer] [id number] 04:34:00 Test Item Value Reference Range Interpretation Comments Glucose Lvl (test code = Glucose Lvl) 125 70-99 [facility] [id number] 04:34:00 Test Item Value Reference Range Interpretation Comments BUN (test code = BUN) 17 7-22 [facility] [id number] 04:34:00 Test Item Value Reference Range Interpretation Comments Creatinine Lvl (test code = Creatinine 1.51 0.50-1.40 Lvl) [facility] [id number] 04:34:00 Test Item Value Reference Range Interpretation Comments Sodium Lvl (test code = Sodium Lvl) 142 135-145 [facility] [id number] 04:34:00 Test Item Value Reference Range Interpretation Comments Potassium Lvl (test code = Potassium 4.0 3.5-5.1 Lvl) [facility] [id number] 04:34:00 Test Item Value Reference Range Interpretation Comments Chloride Lvl (test code = Chloride Lvl) 108 95-109 [facility] [id number] 04:34:00 Test Item Value Reference Range Interpretation Comments CO2 (test code = CO2) 30 24-32 [facility] [id number] 04:34:00 Test Item Value Reference Range Interpretation Comments Calcium Lvl (test code = Calcium Lvl) 7.8 8.5-10.5 [facility] [id number] 04:34:00 Test Item Value Reference Range Interpretation Comments AGAP (test code = AGAP) 8.0 10.0-20.0 [facility] [id number] 04:34:00 Test Item Value Reference Range Interpretation Comments eGFR (test code = eGFR) 33 [facility] HospitalVbpjgqtDIAETPAOSU3655-48-05 04:34:00 Test Item Value Reference Range Interpretation Comments WBC X 10x3 (test code = WBC X 10x3) 9.7 3.7-10.4 [facility] CenterWuvfaraUGENOIQVHU7140-94-57 04:34:00 Test Item Value Reference Range Interpretation Comments RBC X 10x6 (test code = RBC X 10x6) 3.96 4.20-5.40 [place] [address]-12-06 04:34:00 Test Item Value Reference Range Interpretation Comments Hgb (test code = Hgb) 10.6 12.0-16.0 [place] 034210-12-06 04:34:00 Test Item Value Reference Range Interpretation Comments Hct (test code = Hct) 32.6 36.0-48.0 [facility] CenterYyunfdgQPQSOVRVKQ1175-97-73 04:34:00 Test Item Value Reference Range Interpretation Comments MCV (test code = MCV) 82.3 80.0-98.0 [place] 034210-12-06 04:34:00 Test Item Value Reference Range Interpretation Comments MCH (test code = MCH) 26.6 pg 27.0-31.0 [facility] CenterGdqmkchZZJRITIOTX7873-32-69 04:34:00 Test Item Value Reference Range Interpretation Comments MCHC (test code = MCHC) 32.4 32.0-36.0 [facility] CenterCiftzmaYBUSSKTDLV2642-66-82 04:34:00 Test Item Value Reference Range Interpretation Comments RDW (test code = RDW) 16.8 11.5-14.5 [facility] CenterBzslxhaIWREAOGWIW5289-92-04 04:34:00 Test Item Value Reference Range Interpretation Comments Platelet (test code = Platelet) 178 133-450 [facility] CenterAghkeafMUPNIIZEAG7603-15-08 04:34:00 Test Item Value Reference Range Interpretation Comments MPV (test code = MPV) 8.0 7.4-10.4 [facility] CenterGmeynqxQOERNLXZXQ9291-34-39 04:34:00 Test Item Value Reference Range Interpretation Comments PT (test code = PT) 14.7 s 12.0-14.7 [place] 034210-12-06 04:34:00 Test Item Value Reference Range Interpretation Comments INR (test code = INR) 1.14 1 0.85-1.17 [place] 034210-12-06 04:34:00 Test Item Value Reference Range Interpretation Comments PTT (test code = PTT) 31.2 s 22.9-35.8 [place] [address]-12-06 04:34:00 Test Item Value Reference Range Interpretation Comments Segs (test code = Segs) 73.9 45.0-75.0 [place] 034210-12-06 04:34:00 Test Item Value Reference Range Interpretation Comments Lymphocytes (test code = Lymphocytes) 11.0 20.0-40.0 [place] 034210-12-06 04:34:00 Test Item Value Reference Range Interpretation Comments Monocytes (test code = Monocytes) 13.6 2.0-12.0 [place] [address]-12-06 04:34:00 Test Item Value Reference Range Interpretation Comments Eosinophils (test code = 0.7 See_Comment [A utomated message] The Eosinophils) system which ge nerated this result tra nsmitted reference range : <=4.0. The reference r christiano was not used to int erpret this result as normal/abnormal . [place] 034210-12-06 04:34:00 Test Item Value Reference Range Interpretation Comments Basophils (test code = 0.8 See_Comment [Aut omated message] The Basophils) system which ge nerated this result tra nsmitted reference range : <=1.0. The reference r christiano was not used to int erpret this result as normal/abnormal . [facility] CenterIsrcxpoHHNITHLAXP3178-53-04 04:34:00 Test Item Value Reference Range Interpretation Comments Neutrophils # (test code = Neutrophils 7.2 1.5-8.1 #) [place] 034210-12-06 04:34:00 Test Item Value Reference Range Interpretation Comments Lymphocytes # (test code = Lymphocytes 1.1 1.0-5.5 #) [place] [address]-12-06 04:34:00 Test Item Value Reference Range Interpretation Comments Monocytes # (test code 1.3 See_Comment [Aut omated message] The = Monocytes #) system which generated this result tra nsmitted reference range : <=0.8. The reference r christiano was not used to int erpret this result as normal/abnormal . [place] [address]-12-06 04:34:00 Test Item Value Reference Range Interpretation Comments Eosinophils # (test code 0.1 See_Comment [A utomated message] The = Eosinophils #) system whic h generated this result tra nsmitted reference range : <=0.5. The reference r christiano was not used to int erpret this result as normal/abnormal . [facility] CenterHtmejigXTQELUZODM1476-65-96 04:34:00 Test Item Value Reference Range Interpretation Comments Basophils # (test code 0.1 See_Comment [Aut omated message] The = Basophils #) system which generated this result tra nsmitted reference range : <=0.2. The reference r christiano was not used to int erpret this result as normal/abnormal . [facility] CenterAMTCARDIAC [id number] 04:34:00 Test Item Value Reference Range Interpretation Comments Troponin-I (test code no gt See_Comment [Auto mated message] The = Troponin-I) system which g enerated this result transmit sheba reference range : <=0.40. The reference r christiano was not used to interpr et this result as edy l/abnormal. [facility] [employer] [id number] 04:34:00 Test Item Value Reference Range Interpretation Comments Glucose Lvl (test code = Glucose Lvl) 125 70-99 [facility] [employer] [id number] 04:34:00 Test Item Value Reference Range Interpretation Comments BUN (test code = BUN) 17 7-22 [facility] [employer] [id number] 04:34:00 Test Item Value Reference Range Interpretation Comments Creatinine Lvl (test code = Creatinine 1.51 0.50-1.40 Lvl) [facility] [id number] 04:34:00 Test Item Value Reference Range Interpretation Comments Sodium Lvl (test code = Sodium Lvl) 142 135-[address] [facility] [employer] [id number] 04:34:00 Test Item Value Reference Range Interpretation Comments Potassium Lvl (test code = Potassium 4.0 3.5-5.1 Lvl) [facility] [employer] [id number] 04:34:00 Test Item Value Reference Range Interpretation Comments Chloride Lvl (test code = Chloride Lvl) 108 95-109 [facility] [employer] [id number] 04:34:00 Test Item Value Reference Range Interpretation Comments CO2 (test code = CO2) 30 24-32 [facility] [employer] [id number] 04:34:00 Test Item Value Reference Range Interpretation Comments Calcium Lvl (test code = Calcium Lvl) 7.8 8.5-10.5 [facility]2020-12-06 04:34:00 Test Item Value Reference Range Interpretation Comments AGAP (test code = AGAP) 8.0 10.0-20.0 [facility] [id number] 04:34:00 Test Item Value Reference Range Interpretation Comments eGFR (test code = eGFR) 33 [facility]LO1255[facility] 04:34:00 Test Item Value Reference Range Interpretation Comments WBC X 10x3 (test code = WBC X 10x3) 9.7 3.7-10.4 [place] [id number] 04:34:00 Test Item Value Reference Range Interpretation Comments RBC X 10x6 (test code = RBC X 10x6) 3.96 4.20-5.40 [id number] 04:34:00 Test Item Value Reference Range Interpretation Comments Hgb (test code = Hgb) 10.6 12.0-16.0 [place] [id number] 04:34:00 Test Item Value Reference Range Interpretation Comments Hct (test code = Hct) 32.6 36.0-48.0 [facility]SmdqznzDROEIJGNIR5543-88-20 04:34:00 Test Item Value Reference Range Interpretation Comments MCV (test code = MCV) 82.3 80.0-98.0 [id number] 04:34:00 Test Item Value Reference Range Interpretation Comments MCH (test code = MCH) 26.6 pg 27.0-31.0 [facility] CenterTzbmhduYIEHXMUCEH7167-05-16 04:34:00 Test Item Value Reference Range Interpretation Comments MCHC (test code = MCHC) 32.4 32.0-36.0 [facility]SoqwbduPFAOYIAKEX6711-02-62 04:34:00 Test Item Value Reference Range Interpretation Comments RDW (test code = RDW) 16.8 11.5-14.5 [facility] [id number] 04:34:00 Test Item Value Reference Range Interpretation Comments Platelet (test code = Platelet) 178 133-450 [facility]HxczhvxVTJTXVLMFY1198-73-76 04:34:00 Test Item Value Reference Range Interpretation Comments MPV (test code = MPV) 8.0 7.4-10.4 [place] [id number] 04:34:00 Test Item Value Reference Range Interpretation Comments PT (test code = PT) 14.7 s 12.0-14.7 [place] [id number] 04:34:00 Test Item Value Reference Range Interpretation Comments INR (test code = INR) 1.14 1 0.85-1.17 [place] [id number] 04:34:00 Test Item Value Reference Range Interpretation Comments PTT (test code = PTT) 31.2 s 22.9-35.8 [place] [id number] 04:34:00 Test Item Value Reference Range Interpretation Comments Segs (test code = Segs) 73.9 45.0-75.0 [place] [id number] 04:34:00 Test Item Value Reference Range Interpretation Comments Lymphocytes (test code = Lymphocytes) 11.0 20.0-40.0 [place] [address]-12-06 04:34:00 Test Item Value Reference Range Interpretation Comments Monocytes (test code = Monocytes) 13.6 2.0-12.0 [place] [id number] 04:34:00 Test Item Value Reference Range Interpretation Comments Eosinophils (test code = 0.7 See_Comment [A utomated message] The Eosinophils) system which ge nerated this result tra nsmitted reference range : <=4.0. The reference r christiano was not used to int erpret this result as normal/abnormal . [id number] 04:34:00 Test Item Value Reference Range Interpretation Comments Basophils (test code = 0.8 See_Comment [Aut omated message] The Basophils) system which ge nerated this result tra nsmitted reference range : <=1.0. The reference r christiano was not used to int erpret this result as normal/abnormal . [place] [id number] 04:34:00 Test Item Value Reference Range Interpretation Comments Neutrophils # (test code = Neutrophils 7.2 1.5-8.1 #) [place] [address]-12-06 04:34:00 Test Item Value Reference Range Interpretation Comments Lymphocytes # (test code = Lymphocytes 1.1 1.0-5.5 #) [id number] 04:34:00 Test Item Value Reference Range Interpretation Comments Monocytes # (test code 1.3 See_Comment [Aut omated message] The = Monocytes #) system which generated this result tra nsmitted reference range : <=0.8. The reference r christiano was not used to int erpret this result as normal/abnormal . [facility] 04:34:00 Test Item Value Reference Range Interpretation Comments Eosinophils # (test code 0.1 See_Comment [A utomated message] The = Eosinophils #) system whic h generated this result tra nsmitted reference range : <=0.5. The reference r christiano was not used to int erpret this result as normal/abnormal . [facility]KcabwwdPNYDHUDPRC0009-29-50 04:34:00 Test Item Value Reference Range Interpretation Comments Basophils # (test code 0.1 See_Comment [Aut omated message] The = Basophils #) system which generated this result tra nsmitted reference range : <=0.2. The reference r christiano was not used to int erpret this result as normal/abnormal . [facility] [id number] 04:34:00 Test Item Value Reference Range Interpretation Comments Troponin-I (test code no gt See_Comment [Auto mated message] The = Troponin-I) system which g enerated this result transmit sheba reference range : <=0.40. The reference r christiano was not used to interpr et this result as edy l/abnormal. [facility] SHOULDER 2+ VW [id number] 17:54:27 Comminuted distal clavicle fracture. EXAM: XR [...] in the aortic arch.IMPRESSIONComminuted distal clavicle fracture. [facility] [id number] 17:53:09 No acute bony abnormality. EXAM: XR FOREARM 2 VW RIGHT HISTORY: right arm pain COMPARISON: None. FINDINGS: Osteopenia is noted. 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 Mild osteoarthritic changes are present at theelbow. No acute fracture or dislocation is seen. [facility], Radiant Results Inft User - 06/28/2020 12:54 PM CDTEXAM:XR FOREARM 2 VW RIGHTHISTORY:right arm pain COMPARISON:None.FINDINGS: Osteopenia is noted. 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 Mild osteoarthritic changes are present at theelbow. No acute fracture or dislocation is seen.IMPRESSIONNo acute bony abnormality.[facility]
--- NOTE | 2022-11-25 20:26 | EDPHYS ---
Physician Documentation [facility] Name: Radha Bentley Age: 82 yrs Sex: Female : 1940 Arrival Date: 11/25/2022 Time: 19:07 Bed 14 Private MD: ED Physician Vinny Rider HPI: 11/25 19:12 This 82 yrs old Female presents to ER via Unassigned with complaints of bs3 posterior head injury. 19:12 The patient or guardian reports tenderness. Context of injury: The problem was bs3 sustained at home. Onset: The symptoms/episode began/occurred acutely, just prior to arrival. Associated signs and symptoms: The patient has no apparent associated signs or symptoms. 82yo f recent head injury with sah transferred to [place] and discharged after 2 days presents with a fall. She notes that she was feeding her dogs her legs gave out and she hit the back of her head against a cabinet, no loc, or confusion and was ambulatory afterwards, but was concerned and therefore wanted to get out. Of note they started her on methocarbomal for muscle pain on her most recent discharge. NO presyncopal headache, dizziness, or syncopal symptoms. . Historical: - Allergies: 20:09 Avelox; eh3 20:09 Band-aid adhesive; eh3 - Home Meds: 20:09 Amlodipine [Active]; bupropion HCl Oral [Active]; escitalopram oxalate Oral [Active]; eh3 gabapentin Oral [Active]; Lasix Oral [Active]; - PMHx: 20:09 ADD/ADHD; COPD; Heart Murmur; Hyperlipidemia; Hypertension; Hypothyroidism; kidney eh3 disease; - PSHx: 20:09 bilateral knee replacement; breast reduction; Cholecystectomy; Shoulder replacment; eh3 - Immunization history:: Adult Immunizations up to date. - Social history:: Smoking status: unknown. ROS: 19:12 Constitutional: Negative for fever, chills bs3 19:12 All other systems are negative. Exam: 19:12 Constitutional: This is a well developed, well nourished patient who is awake, alert, bs3 and in no acute distress. Head/Face: She has a healing lac on the posterior occiput, otherwise no signs of trauma Eyes: Pupils equal round and reactive to light, extra-ocular motions intact. Lids and lashes normal. ENT: mmm, no posterior phyarngeal erythema Neck: Trachea midline, no thyromegaly, no neck stiffness Chest/axilla: Normal chest wall appearance and motion. Nontender with no deformity. No lesions are appreciated. Cardiovascular: Regular rate and rhythm with a normal S1 and S2. symmetric pulses in upper extremities Respiratory: Lungs have equal breath sounds bilaterally, clear to auscultation, no respiratory distress Abdomen/GI: Soft, non-tender, no rebound or guarding MS/ Extremity: Pulses equal, no cyanosis. Neurovascular intact. Full, normal range of motion. Neuro: Awake and alert, GCS 15, oriented to person, place, time, and situation. Cranial nerves II-XII grossly intact. Motor strength 5/5 in all extremities. Sensory grossly intact. Psych: Awake, alert, with orientation to person, place and time. Behavior, mood, and affect are within normal limits. Vital Signs: 19:24 BP 154 / 60; Pulse 57; Resp 18; Temp 98.1(O); Pulse Ox 94% ; Weight 86.18 kg; Height 4 oe ft. 11 in. (149.86 cm); Pain 6/10; 20:00 BP 173 / 72; Pulse 58; Resp 18; Pulse Ox 95% on R/A; eh3 19:24 Body Mass Index 38.37 (86.18 kg, 149.86 cm) oe MDM: 19:09 Patient medically screened. sb4 19:12 Differential diagnosis: Contusion of head, Hematoma on head, Laceration of scalp, bs3 Intracranial bleed- subdural, epidural, subarachnoid, Concussion cerebral contusion. Data reviewed: vital signs, nurses notes. Historians other than the Patient: EMS: provided details of trauma,noted she frequently falls and they visited her yesterday as well. . 20:24 Independent interpretation of the following test(s) in the Emergency Department CT bs3 Scan: My interpretation is no new ich. ED course: per radiology ct improved from prior, no new bleed, d/w patient she feels comfortable going home, advised to f/u with pcp to discuss pt/rehab, strict return prec given, advised to d/c muscle relaxant. 11/25 19:10 Order name: Head Brain Wo Cont CT; Complete Time: 20:21 sb4 Administered Medications: No medications were administered Disposition Summary: 11/25/22 20:26 Discharge Ordered Location: Home bs3 Problem: new bs3 Symptoms: have improved bs3 Condition: Stable bs3 Diagnosis - Unspecified injury of head, initial encounter bs3 Followup: bs3 - With: Private Physician - When: 1 - 2 days - Reason: Recheck today's complaints Discharge Instructions: - Discharge Summary Sheet bs3 - Head Injury, Adult, Oqyn-qq-Btjg bs3 Forms: - Medication Reconciliation Form bs3 - Thank You Letter bs3 - Antibiotic Education bs3 - Prescription Opioid Use bs3 Signatures: Dispatcher [employer] EDTricia Heller RN RN eh3 Vinny Rider MD MD bs3 Carina Ivey PA-C PA-C sb4 Corrections: (The following items were deleted from the chart) 19:16 19:12 82yo f recent head injury with sah transferred to [place] and discharged after 2 bs3 days presents with a fall. She notes that she was feeding her dogs her legs gave out and she hit the back of her head against a cabinet, no loc, or confusion and was ambulatory afterwards, but was concerned and therefore wanted to get out. Of note they started her on methocarbomal for muscle pain on her most recent discharge. . bs3
--- NOTE | 2022-11-25 20:26 | ER ---
Nurse's Notes [facility] Name: Radha Bentley Age: 82 yrs Sex: Female : 1940 Arrival Date: 11/25/2022 Time: 19:07 Bed 14 Private MD: Diagnosis: Unspecified injury of head, initial encounter Presentation: 11/25 19:07 Chief complaint: EMS states: toned out for fall, hit head on cabinet, denies LOC. eh3 Previously fell on 5 days ago, was transferred from here to [place] and has stitches on back of head from previous fall. Coronavirus screen: Vaccine status: Patient reports receiving the 2nd dose of the covid vaccine. Ebola Screen: No symptoms or risks identified at this time. Initial Sepsis Screen: Does the patient meet any 2 criteria? No. Patient's initial sepsis screen is negative. Does the patient have a suspected source of infection? No. Patient's initial sepsis screen is negative. Risk Assessment: Do you want to hurt yourself or someone else? Patient reports no desire to harm self or others. Onset of symptoms was November 25, 2022. 19:07 Method Of Arrival: [facility] 19:07 Acuity: VAIBHAV 2 eh3 Triage Assessment: 19:07 General: Appears in no apparent distress. uncomfortable, Behavior is calm, cooperative, eh3 appropriate for age. Pain: Complains of pain in back of head Pain does not radiate. EENT: No signs and/or symptoms were reported regarding the EENT system. Neuro: Level of Consciousness is awake, alert, obeys commands, Oriented to person, place, time, situation, Speech is normal, Pupils are PERRLA. Cardiovascular: Capillary refill < 3 seconds Patient's skin is warm and dry. Respiratory: Airway is patent Respiratory effort is even, unlabored, Respiratory pattern is regular, symmetrical. GI: No signs and/or symptoms were reported involving the gastrointestinal system. Abdomen is round non-distended. : No signs and/or symptoms were reported regarding the genitourinary system. Derm: Wound noted back of head. Musculoskeletal: Circulation, motion, and sensation intact. Range of motion: intact in all extremities. Historical: - Allergies: 20:09 Avelox; eh3 20:09 Band-aid adhesive; eh3 - Home Meds: 20:09 Amlodipine [Active]; bupropion HCl Oral [Active]; escitalopram oxalate Oral [Active]; eh3 gabapentin Oral [Active]; Lasix Oral [Active]; - PMHx: 20:09 ADD/ADHD; COPD; Heart Murmur; Hyperlipidemia; Hypertension; Hypothyroidism; kidney eh3 disease; - PSHx: 20:09 bilateral knee replacement; breast reduction; Cholecystectomy; Shoulder replacment; eh3 - Immunization history:: Adult Immunizations up to date. - Social history:: Smoking status: unknown. Screenin:07 [facility] ED Fall Risk Assessment (Adult) History of falling in the last 3 months, 3 including since admission Yes- fall prone (multiple falls) (3 pts) Confusion or Disorientation No (0 pts) Intoxicated or Sedated No (0 pts) Impaired Gait No (0 pts) Mobility Assist Device Used Yes (1 pt) Altered Elimination No (0 pt) Score/Fall Risk Level 3 or more points = High Risk Oriented to surroundings, Maintained a safe environment, Educated pt \T\ family on fall prevention, incl call for assistance when getting out of bed, Assessed \T\ reinforced patient's understanding of fall precautions, Provided non-skid footwear, Hourly rounding (assess needs \T\ fall precautionary measures) done, Used ambulatory aids as needed (educated on \T\ assisted with), Implemented a Fall Risk Plan of Care, Remained with patient while ambulating. Abuse screen: Denies threats or abuse. Denies injuries from another. Nutritional screening: No deficits noted. Tuberculosis screening: No symptoms or risk factors identified. Assessment: 19:07 Reassessment: No changes from previously documented assessment. See triage assessment. eh3 20:00 Reassessment: Patient appears in no apparent distress at this time. Patient and/or 3 family updated on plan of care and expected duration. Pain level reassessed. Patient is alert, oriented x 3, equal unlabored respirations, skin warm/dry/pink. Vital Signs: 19:24 BP 154 / 60; Pulse 57; Resp 18; Temp 98.1(O); Pulse Ox 94% ; Weight 86.18 kg; Height 4 oe ft. 11 in. (149.86 cm); Pain 6/10; 20:00 BP 173 / 72; Pulse 58; Resp 18; Pulse Ox 95% on R/A; eh3 19:24 Body Mass Index 38.37 (86.18 kg, 149.86 cm) ED Course: 19:07 Patient arrived in ED. rv1 19:07 Arm band placed on. eh3 19:07 Patient has correct armband on for positive identification. Placed in gown. Bed in low eh3 position. Call light in reach. Side rails up X2. Pulse ox on. NIBP on. Door closed. Noise minimized. Warm blanket given. 19:11 Vinny Rider MD is Attending Physician. bs3 19:42 Head Brain Wo Cont CT In Process Unspecified. EDMS 20:03 Tricia De Jesus, RN is Primary Nurse. eh3 20:09 Triage completed. eh3 20:42 No provider procedures requiring assistance completed. Patient did not have IV access eh3 during this emergency room visit. Administered Medications: No medications were administered Medication: 20:42 VIS not applicable for this client. eh3 Outcome: 20:26 Discharge ordered by . bs3 20:42 Discharged to home via wheelchair, with family. eh3 20:42 Condition: stable 20:42 Discharge instructions given to patient, family, Instructed on discharge instructions, follow up and referral plans. Demonstrated understanding of instructions, follow-up care. 20:42 Patient left the ED. eh3 Signatures: Dispatcher [employer] [facility] Candelario Holt Tricia De Jesus, RN RN eh3 Vinny Rider MD MD bs3 Lois Ford rv1
[2022-11-25 20:48] VITALS: TEMP 98.1
[2022-11-25 20:49] VITALS: BP 173/72; O2SAT 95
== END 2022-11-25 20:42 | disposition home or self-care (01) ==
LOC: ER 19:05
DX: S09.90XA Unspecified injury of head, initial encounter (principal); I10 Essential (primary) hypertension; E78.5 Hyperlipidemia, unspecified; Z96.653 Presence of artificial knee joint, bilateral; Z88.6 Allergy status to analgesic agent; Z91.048 Other nonmedicinal substance allergy status
CPT/HCPCS: 70450; 99283

== ENCOUNTER 2022-11-26 19:31 | Emergency (ER) | payer MEDICARE ==
--- OUTSIDE RECORDS SUMMARY | 2022-11-26 19:52 | XMS REPORT | Continuity of Care Document ---
:1940 Author Organization [facility] t Address [address] [place] [address] Care Team Providers Name Role Phone SMILEY HOLDER Primary Care Physician Unavailable Anurag Sanderson Attending Clinician Unavailable PEREZ MORENO Attending Clinician Unavailable Peerz Moreno Attending Clinician Allegra Laura Attending Clinician CARLY SINCLAIR Attending Clinician Unavailable Carly Sinclair DO Attending Clinician Sunny Attending Clinician Unavailable Jeffrey Garcia Attending Clinician Olivia-Mbayo_A_AH Attending Clinician Unavailable Caitlyn Jerez Attending Clinician [phone] Vincent Soni Attending Clinician Miller ANGIESariah Carla Attending Clinician Yocasta CLAY, Maria Luisa Mosley [...] OON [id number] 2020 00:00:00 [employer] [place] [id number] 2019 CLASSIC/VALUE 00:00:00 [facility] HEALTH [id number] 2020 MEDICARE ADVANTAGE 00:00:00 PLAN [facility] [id number] 2020 (MEDICARE 00:00:00 REPLACEMENT HMO) [employer] OF [place] - [id number] 2019 [place] (MEDICARE 00:00:00 REPLACEMENT/ADVANTA GE - HMO) Problems Condition Condition Condition Status Onset Resolution Last Treating Co mments Source Name Details Category Date Date Treatment Clinician Date 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 (disorder) (disorder) Active 11/22/2022 Diagnosis 11/25/2022 [facility] SUBARACHNO Diagnosis Active 2022-11-23 Memoria ID SUBARACHNO 11-20 15:38:00 l HEMORRHAGE ID 00:00: Ajay n HEMORRHAGE 00 Active 11/20/2022 [facility] FALL FROM FALL FROM Diagnosis Active 2019-102020-09-16 Memoria STANDING STANDING 11-05 21:55:00 l Active 00:00: [place] 09/04/2020 [facility] S/P FALL, S/P FALL, Diagnosis Active 2019-102020-09-05 Memoria FRACTURED FRACTURED 2- 00:45:00 l RIGHT RIGHT 00:00: Raul WRIST, WRIST, 00 HEAD HE HEAD HE Active 09/04/2020 [facility] Hypertensi Hypertens Problem Active 2022-11-25 Memoria ve lyle 03:23:53 l disorder, disorder, Herm bernie systemic systemic arterial arterial (disorder) (disorder) Active Problem 11/25/2022 [facility] Hyperlipid Hyperlipi Problem Active 2022-11-25 Memoria emia demia 03:23:53 l (disorder) (disorder) He rmann Active Problem 11/25/2022 [facility] Hypothyroi Hypothyro Problem Active 2022-11-25 Memoria dism idism 03:23:53 l (disorder) (disorder) He rmann Active Problem 11/25/2022 [facility] Memory Memory Problem Active 2022-11-25 Jose Francisco zhang impairment impairment 03:23:53 l (finding) (finding) Herm brenie Active Problem 11/25/2022 [facility] Morbid Morbid Problem Active 2022-11-25 Jose Francisco zhang obesity obesity 03:23:53 l (disorder) (disorder) He rmann Active Problem 11/25/2022 [facility] Recurrent Recurrent Problem Active 2022-11-25 Memoria falls falls 03:23:53 l (finding) (finding) Herm bernie Active Problem 11/25/2022 [facility] Transient Transient Problem Active 2022-11-25 Memoria ischemic ischemic 03:23:53 l attack attack Raul (disorder) (disorder) Active Problem 11/25/2022 [facility] Tremor Tremor Problem Active 2022-11-25 Jose Francisco zhang (finding) (finding) 03:23:53 l Active Raul Problem 11/25/2022 [facility] 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 03:23:53 l disease disease [place] (disorder) (disorder) Active Problem 11/25/2022 [facility] Chronic Chronic Problem Active 2022-11-25 Me fenton 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:23:53 l e lung e lung Raul disease disease (disorder) (disorder) Active Problem 11/25/2022 [facility] 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-25 Memoria disorder e disorder 03:23:53 l (disorder) (disorder) He rmann Active Problem 11/25/2022 [facility] 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 03:23:53 l (disorder) (disorder) He rmann Active Problem 11/25/2022 [facility] UNSPECIFIE UNSPECIFI Diagnosis Active 2020-09-16 Memoria D FALL, ED FALL, 21:55:00 l INITIAL INITIAL Raul ENCOUNTER ENCOUNTER Active [facility] [id number] 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 [facility] [id number] Primary Problem Comm on osteoarthr Spirit itis, - [facility] right [facility] foot [facility] [id number] Primary Problem 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 [id number] Acute pain Problem Com mon of right Spirit shoulder - [facility] [id number] 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 [facility] [id number] Arthritis Problem Com mon of hand Spirit [facility] Allergies, Adverse Reactions, Alerts Allergy Allergy Status Severity Reaction(s) Onset Inactive Treating Comm ents Source Name Type Date Date Clinician ADHESIVE DRUG Active Med Rash Univers TAPE-DEBBY 8-30 ity of ICONES 00:00: [address] MOXIFLOX DRUG Active Med Rash Univers [...] [facility] acin HCl 2-15 00:00: [address] BANDAIDS DA Active [place] [facility] ADHESIVE 2-15 00:00: [address] Avelox Avelox Active Memoria l Raul Avelox Allergy Active Rash Devoted to Medical substanc Group e Social History Social Habit Start Date Stop Date Quantity Comments Source ASSERTION [facility] Alcohol Comment Occasional [facility] History of Common Spirit - Tobacco Use [facility] Sex Assigned At Common Sp cristian - [facility] Exposure to 2022-07-26 2022-08-05 Not sure [facility] SARS-CoV-2 00:00:00 12:21:00 [facility] (event) [place] Alcohol intake 2022-08-05 2022-08-05 0 /d [facility] of 00:00:00 00:00:00 [facility] Social History 2020-09-05 2020-09-05 [facility] Dorothea najera 14:31:45 14:31:45 Tobacco use and 2020-06-28 2020-06-28 Never used Universit [facility] of exposure 00:00:00 00:00:00 [facility] Smoking Status Start Date Stop Date Source Tobacco smoking status 2022-11-21 11:47:30 2022-11-21 11:47:30 Keesha Carter Never smoked tobacco [facility] Medications Ordered Filled Start Stop Current Ordering Indication Dosage Frequency Signature Comments Components Source Medication Medication Date Date Medication? Clinician (SIG) Name Name Tylenol Yes 1 tab, PO, Jose Francisco zhang with 2-22 Q6H, PRN l Codeine #3 19:14: Pain Score Dorothea hoffmannbernie oral tablet 00 4-6, X 3 day, # 12 tab, 0 Refill(s), [facility]acy: [id number], 149.86, cm, 11/21/22 4:11:00 RECORDS OFFICER, Height, 86.364, kg, 02/21/23 4:11:00 RECORDS OFFICER, Weight Tylenol 2022-0 Yes 1 tab, PO, Jose Francisco zhang with 2-22 Q6H, PRN l Codeine #3 19:14: Pain Score H ermann oral tablet 00 4-6, X 3 day, # 12 tab, 0 Refill(s), Pharmacy: [id number], 149.86, cm, 11/21/22 4:11:00 RECORDS OFFICER, Height, 86.364, kg, 11/21/22 4:11:00 RECORDS OFFICER, Weight gabapentin 2022-0 Yes 100 mg = 1 M emoria 100 mg oral 2-22 cap, PO, l capsule 19:13: Daily, # Ajay n 00 10 cap, 0 Refill(s), Pharmacy: [id number], 149.86, cm, 11/21/22 4:11:00 RECORDS OFFICER, Height, 86.364, kg, 11/21/22 4:11:00 RECORDS OFFICER, Weight Keppra 500 2022-0 Yes 500 mg = 1 M emoria mg oral 2-22 tab, PO, l tablet 19:13: Q12H, # 12 Jessie nn 00 tab, 0 Refill(s), Pharmacy: [id number], 149.86, cm, 11/21/22 4:11:00 RECORDS OFFICER, Height, 86.364, kg, 11/21/22 4:11:00 RECORDS OFFICER, Weight methocarbam 2022-0 Yes 500 mg = 1 Memoria ol 500 mg 2-22 tab, PO, l oral tablet 19:13: Q8H, X 10 H ermann 00 day, # 30 tab, 0 Refill(s), Pharmacy: [id number], 149.86, cm, 11/21/22 4:11:00 RECORDS OFFICER, Height, 86.364, kg, 11/21/22 4:11:00 RECORDS OFFICER, Weight Zofran 4 mg 2022-0 Yes 4 mg = 1 Me moria oral tablet 2-22 tab, PO, l 19:13: Q8H, PRN Raul 00 Nausea/vom iting, X 7 day, # 21 tab, 0 Refill(s), Pharmacy: [facility] #[id number], 149.86, cm, 11/21/22 4:11:00 RECORDS OFFICER, Height, 86.364, kg, 11/21/22 4:11:00 RECORDS OFFICER, Weight gabapentin 2022-0 Yes 100 mg = 1 M emoria 100 mg oral 2-22 cap, PO, l capsule 19:13: Daily, # Ajay n 00 10 cap, 0 Refill(s), Pharmacy: [facility] #[id number], 149.86, cm, 11/21/22 4:11:00 RECORDS OFFICER, Height, 86.364, kg, 11/21/22 4:11:00 RECORDS OFFICER, Weight Keppra 500 2022-0 Yes 500 mg = 1 M emoria mg oral 2-22 tab, PO, l tablet 19:13: Q12H, # 12 Jessie nn 00 tab, 0 Refill(s), Pharmacy: [facility] #[id number], 149.86, cm, 11/21/22 4:11:00 RECORDS OFFICER, Height, 86.364, kg, 11/21/22 4:11:00 RECORDS OFFICER, Weight methocarbam 2022-0 Yes 500 mg = 1 Memoria ol 500 mg 2-22 tab, PO, l oral tablet 19:13: Q8H, X 10 H ermann 00 day, # 30 tab, 0 Refill(s), Pharmacy: [facility] #[id number], 149.86, cm, 11/21/22 4:11:00 RECORDS OFFICER, Height, 86.364, kg, 11/21/22 4:11:00 RECORDS OFFICER, Weight Zofran 4 mg 2022-0 Yes 4 mg = 1 Me moria oral tablet 2-22 tab, PO, l 19:13: Q8H, PRN Raul 00 Nausea/vom iting, X 7 day, # 21 tab, 0 Refill(s), Pharmacy: [facility] #[id number], 149.86, cm, 11/21/22 4:11:00 RECORDS OFFICER, Height, 86.364, kg, 11/21/22 4:11:00 RECORDS OFFICER, Weight Vitamin D2 2022-0 Yes 50,000 Memor ia 50,000 intl 2-21 IntlUnit = l units (1.25 18:29: 1 cap, PO, Raul mg) oral 00 qWeek, capsule then 1 cap qmonth, 0 Refill(s) Voltaren 0 Yes 2 gm, TOP, Mem oria Topical 1% 2-21 QID, PRN, l topical gel 18:29: 0 Ajay n 00 Refill(s) Voltaren 0 Yes 2 gm, TOP, Mem oria Topical 1% 2-21 QID, PRN, l topical gel 18:29: 0 Ajay n 00 Refill(s) Vitamin D2 Yes 50,000 Memor ia 50,000 intl 2-21 IntlUnit = l units (1.25 18:29: 1 cap, PO, Raul mg) oral 00 qWeek, capsule then 1 cap qmonth, 0 Refill(s) fluocinonid Yes 1 appl, Mem oria e topical 2-21 TOP, BID, l 0.05% 18:28: 0 Raul solution 00 Refill(s) ketoconazol Yes 1 appl, Mem oria e topical 2-21 TOP, BID, l 2% cream 18:28: 0 [place] 00 Refill(s) halobetasol 0 Yes 1 appl, Mem oria topical 2-21 TOP, BID, l 0.05% cream 18:28: PRN, 0 Herm bernie 00 Refill(s) fluocinonid Yes 1 appl, Mem oria e topical 2-21 TOP, BID, l 0.05% 18:28: 0 Raul solution 00 Refill(s) ketoconazol 0 Yes 1 appl, Mem oria e topical 2-21 TOP, BID, l 2% cream 18:28: 0 Raul 00 Refill(s) halobetasol 0 Yes 1 appl, Mem oria topical 2-21 TOP, BID, l 0.05% cream 18:28: PRN, 0 Herm bernie 00 Refill(s) levothyroxi Yes 112 Memori a ne 112 mcg 2-21 microgram l (0.112 mg) 18:27: = 1 tab, Her ivroy oral tablet 00 PO, Daily, 0 Refill(s) Lasix 80 mg Yes 80 mg = 1 M emoria oral tablet 2-21 tab, PO, l 18:27: Daily, 0 [place] 00 Refill(s) Pepcid 40 Yes 40 mg = 1 Mem oria mg oral 2-21 tab, PO, l tablet 18:27: Bedtime, 0 Jessie nn 00 Refill(s) primidone 0 Yes 50 mg = 1 Mem oria 50 mg oral 2-21 tab, PO, l tablet 18:27: Bedtime, 0 Jessie nn 00 Refill(s) ferrous 0 Yes 325 mg = 1 Jose Francisco zhang sulfate 325 2-21 tab, PO, l mg oral 18:27: Daily, 0 Ajay n enteric 00 Refill(s) coated tablet levothyroxi Yes 112 Memori a ne 112 [...] Bedtime, 0 Jessie nn 00 Refill(s) ferrous 0 Yes 325 mg = 1 Jose Francisco zhang sulfate 325 2-21 tab, PO, l mg oral 18:27: Daily, 0 Ajay n enteric 00 Refill(s) coated tablet donepezil Yes 10 mg = 1 Mem oria 10 mg oral 2-21 tab, PO, l tablet 18:26: Daily, 0 [place] 00 Refill(s) NIFEdipine Yes 30 mg = 1 Me moria (Eqv-Procar 2-21 tab, PO, l afua XL) 30 18:26: Daily, 0 Her ivory mg oral 00 Refill(s) tablet, extended release Kerendia 10 Yes 10 mg = 1 M emoria mg oral 2-21 tab, PO, l tablet 18:26: Daily, 0 Raul 00 Refill(s) lovastatin 2022-0 Yes 20 mg = 1 Me moria 20 mg oral 2-21 tab, PO, l tablet 18:26: Daily, 0 [place] 00 Refill(s) donepezil 2022-0 Yes 10 mg = 1 Mem oria 10 mg oral 2-21 tab, PO, l tablet 18:26: Daily, 0 Raul 00 Refill(s) NIFEdipine 2022-0 Yes 30 mg = 1 Me moria (Eqv-Procar 2-21 tab, PO, l afua XL) 30 18:26: Daily, 0 Her ivory mg oral 00 Refill(s) tablet, extended release Kerendia 10 2022-0 Yes 10 mg = 1 M emoria mg oral 2-21 tab, PO, l tablet 18:26: Daily, 0 Raul 00 Refill(s) lovastatin 2022-0 Yes 20 mg = 1 Me moria 20 mg oral 2-21 tab, PO, l tablet 18:26: Daily, 0 Raul 00 Refill(s) Coreg 25 mg 2022-0 Yes 25 mg = 1 M emoria oral tablet 2-21 tab, PO, l 18:25: BID, 0 Raul 00 Refill(s) Lexapro 20 2022-0 Yes 20 mg = 1 Me moria mg oral 2-21 tab, PO, l tablet 18:25: BID, 0 Raul 00 Refill(s) rOPINIRole 2022-0 Yes 4 mg = 1 Mem oria 4 mg oral 2-21 tab, PO, l tablet 18:25: BID, 0 [place] 00 Refill(s) Coreg 25 mg 2022-0 Yes 25 mg = 1 M emoria oral tablet 2-21 tab, PO, l 18:25: BID, 0 [place] 00 Refill(s) Lexapro 20 2022-0 Yes 20 mg = 1 Me moria mg oral 2-21 tab, PO, l tablet 18:25: BID, 0 Raul 00 Refill(s) rOPINIRole 2022-0 Yes 4 mg = 1 Mem oria 4 mg oral 2-21 tab, PO, l tablet 18:25: BID, 0 Raul 00 Refill(s) pantoprazol 2022-0 Yes 40 mg = 1 M emoria e 40 mg 2-21 tab, PO, l oral 18:24: BID, 0 [place] enteric 00 Refill(s) coated tablet pantoprazol 2022-0 Yes 40 mg = 1 M emoria e 40 mg 2-21 tab, PO, l oral 18:24: BID, 0 [place] enteric 00 Refill(s) coated tablet Wellbutrin 3-0 Yes 150 mg = 1 M emoria SR 150 2-21 tab, PO, l mg/12 hours 18:23: BID, 0 Herm bernie oral 00 Refill(s) tablet, extended release Wellbutrin 2022-0 Yes 150 mg = 1 M emoria SR 150 2-21 tab, PO, l mg/12 hours 18:23: BID, 0 Herm bernie oral 00 Refill(s) tablet, extended release albuterol 2021-10- No 5mg 5 mg, Univer s (PROVENTIL) 10-05 Inhalation i ty of 2.5 mg /3 18:15: 17:40 , [place]CE, 1 [place] (0.083 00 :00 dose, On Medica l %) Sat Branch nebulizer 08/05/22 at solution 5 1315, DIMITRIS mg primidone 2021-0 Yes 50 mg = 1 Mem oria 50 mg oral 2-02 tab, PO, l tablet 20:46: Bedtime, # Jessie nn 00 90 tab, 2 Refill(s), Pharmacy: [facility] #[id number], 149.86, cm, 11/02/21 14:32:00 RECORDS OFFICER, Height, 90.455, kg, 11/02/21 14:32:00 RECORDS OFFICER, Weight primidone 2021-0 Yes 50 mg = 1 Mem oria 50 mg oral 2-02 tab, PO, l tablet 20:46: Bedtime, # Jessie nn 00 90 tab, 2 Refill(s), Pharmacy: [facility] #[id number], 149.86, cm, 11/02/21 14:32:00 RECORDS OFFICER, Height, 90.455, kg, 11/02/21 14:32:00 RECORDS OFFICER, Weight primidone 2021-0 Yes 50 mg = 1 Mem oria 50 mg oral 2-02 tab, PO, l tablet 20:46: Bedtime, # Jessie nn 00 90 tab, 2 Refill(s), Pharmacy: [facility] #[id number], 149.86, cm, 11/02/21 14:32:00 RECORDS OFFICER, Height, 90.455, kg, 11/02/21 14:32:00 RECORDS OFFICER, Weight primidone 0 Yes 50 mg = 1 Mem oria 50 mg oral 2-02 tab, PO, l tablet 20:46: Bedtime, # Jessie nn 00 90 tab, 2 Refill(s), Pharmacy: [id number], 149.86, cm, 11/02/21 14:32:00 RECORDS OFFICER, Height, 90.455, kg, 11/02/21 14:32:00 RECORDS OFFICER, Weight primidone 0 Yes 50 mg = 1 Mem oria 50 mg oral 2-02 tab, PO, l tablet 20:46: Bedtime, # Jessie nn 00 90 tab, 2 Refill(s), Pharmacy: [id number], 149.86, cm, 11/02/21 14:32:00 RECORDS OFFICER, Height, 90.455, kg, 11/02/21 14:32:00 RECORDS OFFICER, Weight primidone 0 Yes 50 mg = 1 Mem oria 50 mg oral 2-02 tab, PO, l tablet 20:46: Bedtime, # Jessie nn 00 90 tab, 2 Refill(s), Pharmacy: [id number], 149.86, cm, 11/02/21 14:32:00 RECORDS OFFICER, Height, 90.455, kg, 11/02/21 14:32:00 RECORDS OFFICER, Weight primidone 2021-0 Yes 50 mg = 1 Mem oria 50 mg oral 2-02 tab, PO, l tablet 20:46: Bedtime, # Jessie nn 00 90 tab, 2 Refill(s), Pharmacy: [id number], 149.86, cm, 11/02/21 14:32:00 RECORDS OFFICER, Height, 90.455, kg, 11/02/21 14:32:00 RECORDS OFFICER, Weight NIFEdipine Yes TAKE 1 Memor ia [...] BY l de 50 MG 20:38: MOUTH [place] Oral Tablet 00 EVERY 6 TO 8 HOURS NEEDED predniSONE Yes TAKE 1 Memor ia 10 mg oral 2-02 TABLET BY l tablet 20:38: MOUTH [place] 00 EVERY DAY FOR 90 DAYS doxycycline Yes TAKE 1 Jose Francisco zhang hyclate 100 2-02 CAPSULE BY l MG Oral 20:38: MOUTH Raul Capsule 00 TWICE A DAY Colestipol Yes TAKE 1 Memor ia Hydrochlori 2-02 TABLET BY l de 1000 MG 20:38: MOUTH Ajay n Oral Tablet 00 TWICE A DAY pantoprazol Yes TAKE 1 Ojse Francisco zhang e 40 mg 2-02 TABLET BY l oral 20:38: MOUTH 2 Raul enteric 00 TIMES coated DAILY HALF tablet HOUR BEFORE BREAKFAST OR FIRST MEAL oxybutynin Yes TAKE 1 Memor ia 5 mg oral 2-02 TABLET BY l tablet 20:38: MOUTH [place] 00 THREE TIMES A DAY NIFEdipine Yes TAKE 1 Memor ia (Eqv-Adalat 2-02 TABLET BY l CC) 30 mg 20:38: MOUTH Raul oral 00 EVERY DAY tablet, ON EMPTY extended STOMACH release FOR 30 DAYS Furosemide Yes TAKE 1 Memor ia 40 MG Oral 2-02 TABLET BY l Tablet 20:38: MOUTH [place] 00 EVERY DAY NEEDED FOR SWELLING tramadol Yes TAKE 1 Memoria hydrochlori 2-02 TABLET BY l de 50 MG 20:38: MOUTH [place] Oral Tablet 00 EVERY 6 TO 8 HOURS NEEDED predniSONE Yes TAKE 1 Memor ia 10 mg oral 2-02 TABLET BY l tablet 20:38: MOUTH [place] 00 EVERY DAY FOR 90 DAYS doxycycline [...] BY l CC) 30 mg 20:38: MOUTH [place] oral 00 EVERY DAY tablet, ON EMPTY extended STOMACH release FOR 30 DAYS Furosemide Yes TAKE 1 Memor ia 40 MG Oral 2-02 TABLET BY l Tablet 20:38: MOUTH [place] 00 EVERY DAY NEEDED FOR SWELLING tramadol Yes TAKE 1 Memoria hydrochlori 2-02 TABLET BY l de 50 MG 20:38: MOUTH [place] Oral Tablet 00 EVERY 6 TO 8 HOURS NEEDED predniSONE Yes TAKE 1 Memor ia 10 mg oral 2-02 TABLET BY l tablet 20:38: MOUTH [place] 00 EVERY DAY FOR 90 DAYS doxycycline Yes TAKE 1 Jose Francisco zhang hyclate 100 2-02 CAPSULE BY l MG Oral 20:38: MOUTH [place] Capsule 00 TWICE A DAY Colestipol Yes [...] 2-02 TABLET BY l tablet 20:38: MOUTH [place] 00 THREE TIMES A DAY NIFEdipine Yes [...] 2-02 TABLET BY l tablet 20:38: MOUTH [place] 00 EVERY DAY FOR 90 DAYS doxycycline [...] TABLET BY l oral 20:38: MOUTH 2 [place] enteric 00 TIMES coated DAILY HALF tablet [...] BY l de 50 MG 20:38: MOUTH [place] Oral Tablet 00 EVERY 6 TO 8 HOURS NEEDED predniSONE Yes TAKE 1 Memor ia 10 mg oral 2-02 TABLET BY l tablet 20:38: MOUTH Raul 00 EVERY DAY FOR 90 DAYS doxycycline Yes TAKE 1 Jose Francisco zhang hyclate 100 2-02 CAPSULE BY l MG Oral 20:38: MOUTH [place] Capsule 00 TWICE A DAY Colestipol Yes TAKE 1 Memor ia Hydrochlori 2-02 TABLET BY l de 1000 MG 20:38: MOUTH Ajay n Oral Tablet 00 TWICE A DAY pantoprazol Yes TAKE 1 Jose Francisco zhang e 40 mg 2-02 TABLET BY l oral 20:38: MOUTH 2 [place] enteric 00 TIMES coated DAILY HALF tablet [...] BY l de 50 MG 20:38: MOUTH [place] Oral Tablet 00 EVERY 6 TO 8 HOURS NEEDED predniSONE Yes TAKE 1 Memor ia 10 mg oral 2-02 TABLET BY l tablet 20:38: MOUTH [place] 00 EVERY DAY FOR 90 DAYS doxycycline Yes TAKE 1 Jose Francisco zhang hyclate 100 2-02 CAPSULE BY l MG Oral 20:38: MOUTH [place]our Capsule 00 TWICE A DAY Colestipol Yes [...] 2-02 TABLET BY l Tablet 20:38: MOUTH [place] 00 EVERY DAY NEEDED FOR SWELLING tramadol Yes TAKE 1 Memoria hydrochlori 2-02 TABLET BY l de 50 MG 20:38: MOUTH [place] Oral Tablet 00 EVERY 6 TO 8 HOURS NEEDED predniSONE Yes TAKE 1 Memor ia 10 mg oral 2-02 TABLET BY l tablet 20:38: MOUTH [place] 00 EVERY DAY FOR 90 DAYS doxycycline [...] TABLET BY l oral 20:38: MOUTH 2 [place] enteric 00 TIMES coated DAILY HALF tablet HOUR BEFORE BREAKFAST OR FIRST MEAL oxybutynin 0 Yes TAKE 1 Memor ia 5 mg oral 2-02 TABLET BY l tablet 20:38: MOUTH Raul 00 THREE TIMES A DAY donepezil Yes = 1 tab, Jose Francisco zhang 10 mg oral 3-26 PO, Daily, l tablet 19:08: # 90 tab, Ajay n 00 1 Refill(s), Pharmacy: [facility] #[id number], 149.86, cm, 12/24/20 13:59:00 CDT, Height, 93.182, kg, 12/24/20 13:59:00 CDT, Weight primidone 0 Yes 50 mg = 1 Mem oria 50 mg oral 3-26 tab, PO, l tablet 19:08: Bedtime, # Jessie nn 00 90 tab, 2 Refill(s), Pharmacy: [id number], 149.86, cm, 12/24/20 13:59:00 CDT, Height, 93.182, kg, 12/24/20 13:59:00 CDT, Weight donepezil 0 Yes = 1 tab, Jose Francisco zhang 10 mg oral 3-26 PO, Daily, l tablet 19:08: # 90 tab, Ajay n 00 1 Refill(s), Pharmacy: [id number], 149.86, cm, 12/24/20 13:59:00 CDT, Height, 93.182, kg, 12/24/20 13:59:00 CDT, Weight primidone 0 Yes 50 mg = 1 Mem oria 50 mg oral 3-26 tab, PO, l tablet 19:08: Bedtime, # Jessie nn 00 90 tab, 2 Refill(s), Pharmacy: [id number], 149.86, cm, 12/24/20 13:59:00 CDT, Height, 93.182, kg, 12/24/20 13:59:00 CDT, Weight donepezil 2021-0 Yes = 1 tab, Jose Francisco zhang 10 mg oral 3-26 PO, Daily, l tablet 19:08: # 90 tab, Ajay n 00 1 Refill(s), Pharmacy: [id number], 149.86, cm, 12/24/20 13:59:00 CDT, Height, 93.182, kg, 12/24/20 13:59:00 CDT, Weight primidone 2021-0 Yes 50 mg = 1 Mem oria 50 mg oral 3-26 tab, PO, l tablet 19:08: Bedtime, # Jessie nn 00 90 tab, 2 Refill(s), Pharmacy: [id number], 149.86, cm, 12/24/20 13:59:00 CDT, Height, 93.182, kg, 12/24/20 13:59:00 CDT, Weight donepezil 2020-0 Yes = 1 tab, Jose Francisco zhang 10 mg oral 3-26 PO, Daily, l tablet 19:08: # 90 tab, Ajay n 00 1 Refill(s), Pharmacy: [id number], 149.86, cm, 12/24/20 13:59:00 CDT, Height, 93.182, kg, 12/24/20 13:59:00 CDT, Weight primidone 2020-0 Yes 50 mg = 1 Mem oria 50 mg oral 3-26 tab, PO, l tablet 19:08: Bedtime, # Jessie nn 00 90 tab, 2 Refill(s), Pharmacy: [id number], 149.86, cm, 12/24/20 13:59:00 CDT, Height, 93.182, kg, 12/24/20 13:59:00 CDT, Weight donepezil 2020-0 Yes = 1 tab, Jose Francisco zhang 10 mg oral 3-26 PO, Daily, l tablet 19:08: # 90 tab, Ajay n 00 1 Refill(s), Pharmacy: [id number], 149.86, cm, 12/24/20 13:59:00 CDT, Height, 93.182, kg, 12/24/20 13:59:00 CDT, Weight primidone 2021-0 Yes 50 mg = 1 Mem oria 50 mg oral 3-26 tab, PO, l tablet 19:08: Bedtime, # Jessie nn 00 90 tab, 2 Refill(s), Pharmacy: [id number], 149.86, cm, 12/24/20 13:59:00 CDT, Height, 93.182, kg, 12/24/20 13:59:00 CDT, Weight donepezil 2020-0 Yes = 1 tab, Jose Francisco zhang 10 mg oral 3-26 PO, Daily, l tablet 19:08: # 90 tab, Ajay n 00 1 Refill(s), Pharmacy: [id number], 149.86, cm, 12/24/20 13:59:00 CDT, Height, 93.182, kg, 12/24/20 13:59:00 CDT, Weight primidone 2020-0 Yes 50 mg = 1 Mem oria 50 mg oral 3-26 tab, PO, l tablet 19:08: Bedtime, # Jessie nn 00 90 tab, 2 Refill(s), Pharmacy: [id number], 149.86, cm, 12/24/20 13:59:00 CDT, Height, 93.182, kg, 12/24/20 13:59:00 CDT, Weight donepezil 2020-0 Yes = 1 tab, Jose Francisco zhang 10 mg oral 3-26 PO, Daily, l tablet 19:08: # 90 tab, Ajay n 00 1 Refill(s), Pharmacy: [facility] #[id number], 149.86, cm, 12/24/20 13:59:00 CDT, Height, 93.182, kg, 12/24/20 13:59:00 CDT, Weight primidone 2020-0 Yes 50 mg = 1 Mem oria 50 mg oral 3-26 tab, PO, l tablet 19:08: Bedtime, # Jessie nn 00 90 tab, 2 Refill(s), Pharmacy: [facility] #[id number], 149.86, cm, 12/24/20 13:59:00 CDT, Height, 93.182, kg, 12/24/20 13:59:00 CDT, Weight Lidocaine Lidocaine 2020-0 No 10mg Com mon 12-09 [facility]: - [facility] 00 [facility] Celestone Celestone 1-0 No 6mg Com mon Soluspan Soluspan 3-11 [facility] (Betamethas (Betamethas 00:00: - [facility] one) one) 00 [facility] Lidocaine Lidocaine 1-0 No 10mg Com 12-09 [facility] 00:[facility]: - [facility] 00 [facility] Celestone Celestone 1-0 No 6mg Com mon Soluspan Soluspan 3-11 [facility] (Betamethas (Betamethas 00:00: - [facility] one) one) 00 [facility] Lidocaine Lidocaine 1-0 No 10mg Com 12-09 [facility] 00:[facility]: - [facility] 00 [facility] Celestone Celestone 1-0 No 6mg Com mon Soluspan Soluspan 3-11 [facility] (Betamethas (Betamethas 00:00: - [facility] one) one) 00 [facility] Lidocaine Lidocaine 1-0 No 10mg Com 12-09 [facility] 00:00: - [facility] 00 [facility] Celestone Celestone 1-0 No 6mg Com mon Soluspan Soluspan 3-11 [facility] (Betamethas (Betamethas 00:00: - [facility] one) one) 00 [facility] Lidocaine Lidocaine 1-0 No 10mg Com 12-09 [facility] 00:00: - [facility] 00 [facility] Celestone Celestone 1-0 No 6mg Com mon Soluspan Soluspan 3-11 [facility] (Betamethas (Betamethas 00:00: - [facility] one) one) 00 [facility] Lidocaine Lidocaine 1-0 No 10mg Com 12-09 [facility] 00:00: - [facility] 00 [facility] Celestone Celestone 1-0 No 6mg Com mon Soluspan Soluspan 3-11 [facility] (Betamethas (Betamethas 00:00: - [facility] one) one) 00 [facility] Lidocaine Lidocaine 1-0 No 10mg Com 12-09 [facility] 00:00: - [facility] 00 [facility] Celestone Celestone 1-0 No 6mg Com mon Soluspan Soluspan 3-11 [facility] (Betamethas (Betamethas 00:00: - [facility] one) one) 00 [facility] Lovastatin 2019-10 No 20 mg, 1 Mem oria 2-07 tab, l 03:00: Route: PO, [place] 00 Drug form: TAB, Bedtime, Dosing Weight 104.545, kg, Start date: 09/05/20 21:00:00 RECORDS OFFICER, 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, Stop date: 10/04/20 21:00:00 RECORDS OFFICER Primidone 2019-10 No Notes: Memori a 2-07 (Same as: l 03:00: Mysoline) Lipitor 2019-10 No Notes: Memoria 2-07 (Same As: l 03:00: Lipitor) Lovastatin 2019-10 No 20 mg, 1 Mem oria 2-07 tab, l 03:00: Route: PO, [place] 00 Drug form: TAB, Bedtime, Dosing Weight 104.545, kg, Start date: 09/05/20 21:00:00 RECORDS OFFICER, 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, Stop date: 10/04/20 21:00:00 RECORDS OFFICER Primidone 2019-10 No Notes: Memori a 2-07 (Same as: l 03:00: Mysoline) Lipitor 2019-10 No Notes: Memoria 2-07 (Same As: l 03:00: Lipitor) Lovastatin 2019-10 No 20 mg, 1 Mem oria 2-07 tab, l 03:00: Route: PO, [place] 00 Drug form: TAB, Bedtime, Dosing Weight 104.545, kg, Start date: 09/05/20 21:00:00 RECORDS OFFICER, 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, Stop date: 10/04/20 21:00:00 RECORDS OFFICER Primidone 2019-10 No Notes: Memori a 2-07 (Same as: l 03:00: Mysoline) Lovastatin 2019-10 No 20 mg, 1 Mem oria 2-07 tab, l 03:00: Route: PO, Raul 00 Drug form: TAB, Bedtime, Dosing Weight 104.545, kg, Start date: 09/05/20 21:00:00 RECORDS OFFICER, 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, Stop date: 10/04/20 21:00:00 RECORDS OFFICER Primidone 2019-10 No Notes: Memori a 2-07 (Same as: l 03:00: Mysoline) Lipitor 2019-10 No Notes: Memoria 2-07 (Same As: l 03:00: Lipitor) Lipitor 2019-10 No Notes: Memoria 2-07 (Same As: l 03:00: Lipitor) Lovastatin 2019-10 No 20 mg, 1 Mem oria 2-07 tab, l 03:00: Route: PO, [place] 00 Drug form: TAB, Bedtime, Dosing Weight 104.545, kg, Start date: 09/05/20 21:00:00 RECORDS OFFICER, 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, Stop date: 10/04/20 21:00:00 RECORDS OFFICER Primidone 2019-10 No Notes: Memori a 2-07 (Same as: l 03:00: Mysoline) Lipitor 2019-10 No Notes: Memoria 2-07 (Same As: l 03:00: Lipitor) Lovastatin 2019-10 No 20 mg, 1 Mem oria 2-07 tab, l 03:00: Route: PO, Raul 00 Drug form: TAB, Bedtime, Dosing Weight 104.545, kg, Start date: 09/05/20 21:00:00 RECORDS OFFICER, 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, Stop date: 10/04/20 21:00:00 RECORDS OFFICER Primidone 2019-10 No Notes: Memori a 2-07 (Same as: l 03:00: Mysoline) Lipitor 2019-10 No Notes: Memoria 2-07 (Same As: l 03:00: Lipitor) Lovastatin 2019-10 No 20 mg, 1 Mem oria 2-07 tab, l 03:00: Route: PO, Raul 00 Drug form: TAB, Bedtime, Dosing Weight 104.545, kg, Start date: 09/05/20 21:00:00 RECORDS OFFICER, 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, Stop date: 10/04/20 21:00:00 RECORDS OFFICER Primidone 2019-10 No Notes: Memori a 2-07 [...] as: l solution 17:00: Duoneb) Ajay n b 2019-10 No Notes: Memoria inhalation 2-06 (Same as: l solution 17:00: Duoneb) Ajay n DuoNeb 2019-10 No Notes: Memoria inhalation 2-06 (Same as: l solution 17:00: Duoneb) Ajay n DuoNeb 2019-10 No Notes: Memoria inhalation 2-06 (Same as: l solution 17:00: Duoneb) Ajay n oNeb 2019-10 No Notes: Memoria inhalation 2-06 (Same [...] 104.545, kg, Daily, Start date: 09/05/20 9:00:00 RECORDS OFFICER, 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, Stop date: 10/04/20 9:00:00 RECORDS OFFICER gabapentin 2019-10 No Notes: Memor ia 300 MG Oral 2-06 (Same as: l Capsule 15:00: Neurontin) ropinirole 2019-10 No Notes: Memor ia 2-06 (Same as: l 15:00: Requip) Bupropion 2019-10 No Notes: Memori a 2-06 (Same as: l 15:00: Wellbutrin [place] 00 XL) "Do Not Crush" carvedilol 2019-10 [...] inhalation l 62.5 mcg-25 15:00: , [facility] , Drug powder Form: PWDR, Dosing Weight 104.545, kg, Daily, Start date: 09/05/20 9:00:00 RECORDS OFFICER, 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, Stop date: 10/04/20 9:00:00 RECORDS OFFICER gabapentin 2019-10 No Notes: Memor ia 300 MG Oral 2-06 (Same as: l Capsule 15:00: Neurontin) ropinirole 2019-10 No Notes: Memor ia 2-06 (Same as: l 15:00: Requip) Bupropion 2019-10 No Notes: Memori a 2-06 (Same as: l 15:00: Wellbutrin [place] 00 XL) "Do Not Crush" carvedilol 2019-10 [...] 104.545, kg, Daily, Start date: 09/05/20 9:00:00 RECORDS OFFICER, 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, Stop date: 10/04/20 9:00:00 RECORDS OFFICER gabapentin 2019-10 No Notes: Memor ia 300 [...] 104.545, kg, Daily, Start date: 09/05/20 9:00:00 RECORDS OFFICER, 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, Stop date: 10/04/20 9:00:00 RECORDS OFFICER gabapentin 2019-10 No Notes: Memor ia 300 MG Oral 2-06 (Same as: l Capsule 15:00: Neurontin) ropinirole 2019-10 No Notes: Memor ia 2-06 (Same as: l 15:00: Requip) Bupropion 2019-10 No Notes: Memori a 2-06 (Same as: l 15:00: Wellbutrin [place] 00 XL) "Do Not Crush" carvedilol 2019-10 [...] 104.545, kg, Daily, Start date: 09/05/20 9:00:00 RECORDS OFFICER, 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, Stop date: 10/04/20 9:00:00 RECORDS OFFICER gabapentin 2019-10 No Notes: Memor ia 300 MG Oral 2-06 (Same as: l Capsule 15:00: Neurontin) ropinirole 2019-10 No Notes: Memor ia 2-06 (Same as: l 15:00: Requip) Bupropion 2019-10 No Notes: Memori a 2-06 (Same as: l 15:00: Wellbutrin [place] 00 XL) "Do Not Crush" carvedilol 2019-10 [...] 104.545, kg, Daily, Start date: 09/05/20 9:00:00 RECORDS OFFICER, 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, Stop date: 10/04/20 9:00:00 RECORDS OFFICER gabapentin 2019-10 No Notes: Memor ia 300 [...] 104.545, kg, Daily, Start date: 09/05/20 9:00:00 RECORDS OFFICER, 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, Stop date: 10/04/20 9:00:00 RECORDS OFFICER gabapentin 2019-10 No Notes: Memor ia 300 [...] m 2-06 (Same as: l 15:00: Lexapro) [place] 00 Streptococc 2020- No Notes: Jose Francisco zhang us 2-06 Shake well l pneumoniae 14:12: prior to Her ivory serotype 1 45 use (Same capsular as: antigen Prevnar diphtheria 13) [id number] protein conjugate vaccine / Streptococc us pneumoniae serotype 14 capsular antigen diphtheria [id number] protein conjugate vaccine / Streptococc us pneumoniae serotype 18C capsular antigen d Streptococc 2020- No Notes: Jose Francisco zhang us 2-06 Shake well l pneumoniae 14:12: prior to Her ivory serotype 1 45 use (Same capsular as: antigen Prevnar diphtheria 13) [id number] protein conjugate vaccine / Streptococc us pneumoniae serotype 14 capsular antigen diphtheria [id number] protein conjugate vaccine / Streptococc us pneumoniae serotype 18C capsular antigen d Streptococc 2020- No Notes: Jose Francisco zhang us 2-06 Shake well l pneumoniae 14:12: prior to Her ivory serotype 1 45 use (Same capsular as: antigen Prevnar diphtheria 13) [id number] protein conjugate vaccine / Streptococc us pneumoniae serotype 14 capsular antigen diphtheria [id number] protein conjugate vaccine / Streptococc us pneumoniae serotype 18C capsular antigen d Streptococc 2020- No Notes: Jose Francisco zhang us 2-06 Shake well l pneumoniae 14:12: prior to Her ivory serotype 1 45 use (Same capsular as: antigen Prevnar diphtheria 13) [id number] protein conjugate vaccine / Streptococc us pneumoniae serotype 14 capsular antigen diphtheria [id number] protein conjugate vaccine / Streptococc us pneumoniae serotype 18C capsular antigen d Streptococc 2020- No Notes: Jose Francisco zhang us 2-06 Shake well l pneumoniae 14:12: prior to Her ivory serotype 1 45 use (Same capsular as: antigen Prevnar diphtheria 13) [id number] protein conjugate vaccine / Streptococc us pneumoniae serotype 14 capsular antigen diphtheria [id number] protein conjugate vaccine / Streptococc us pneumoniae serotype 18C capsular antigen d Streptococc 2020- No Notes: Jose Francisco zhang us 2-06 Shake well l pneumoniae 14:12: prior to Her ivory serotype 1 45 use (Same capsular as: antigen Prevnar diphtheria 13) [id number] protein conjugate vaccine / Streptococc us pneumoniae serotype 14 capsular antigen diphtheria [id number] protein conjugate vaccine / Streptococc us pneumoniae serotype 18C capsular antigen d Streptococc 2020- No Notes: Jose Francisco zhang us 2-06 Shake well l pneumoniae 14:12: prior to Her ivory serotype 1 45 use (Same capsular as: antigen Prevnar diphtheria 13) [id number] protein conjugate vaccine / Streptococc us pneumoniae serotype 14 capsular antigen diphtheria [id number] protein conjugate vaccine / Streptococc us pneumoniae serotype 18C capsular antigen d Thyroxine 2019-10 No Notes: Memori a 2-06 Take 1 l 14:00: hour [place]ul 00 before or 2 hours after meal; Enteral feeds may interefere with the absorption of this medication . (Same as:Levothr oid) Thyroxine 2019-10 No Notes: Memori a 2-06 Take 1 l 14:00: hour [place] 00 before or 2 hours after meal; Enteral feeds may interefere with the absorption of this medication . (Same as:Levothr oid) Thyroxine 2019-10 No Notes: Memori a 2-06 Take 1 l 14:00: hour [place] 00 before or 2 hours after meal; Enteral feeds may interefere with the absorption of this medication . (Same as:Levothr oid) Thyroxine 2019-10 No Notes: Memori a 2-06 Take 1 l 14:00: hour [place] 00 before or 2 hours after meal; Enteral feeds may interefere with the absorption of this medication . (Same as:Levothr oid) Thyroxine 2019-10 No Notes: Memori a 2-06 Take 1 l 14:00: hour [place] 00 before or 2 hours after meal; Enteral feeds may interefere with the absorption of this medication . (Same as:Levothr oid) Thyroxine 2019-10 No Notes: Memori a 2-06 Take 1 l 14:00: hour [place] 00 before or 2 hours after meal; [...] Memoria 2-06 Route: l 12:39: IVP, Drug [place] 00 Form: SOLN, Dosing Weight 104.545, kg, ONCALL, STAT, Start date: 09/05/20 6:39:00 RECORDS OFFICER, Duration: 1 doses or times, Dose = 2.2ml/kg, Max dose = 100ml -- "To be infused by Radiology Staff ONLY" Iohexol 2020-1 No 100 mL, Memoria 2-06 Route: l 12:39: IVP, Drug Raul 00 Form: SOLN, Dosing Weight 104.545, kg, ONCALL, STAT, Start date: 09/05/20 6:39:00 RECORDS OFFICER, Duration: 1 doses or times, Dose = 2.2ml/kg, Max dose = 100ml -- "To be infused by Radiology Staff ONLY" Iohexol 2020-1 No 100 mL, Memoria 2-06 Route: l 12:39: IVP, Drug [place] 00 Form: SOLN, Dosing Weight 104.545, kg, ONCALL, STAT, Start date: 09/05/20 6:39:00 RECORDS OFFICER, Duration: 1 doses or times, Dose = 2.2ml/kg, Max dose = 100ml -- "To be infused by Radiology Staff ONLY" Iohexol 2020-1 No 100 mL, Memoria 2- Route: l 12:39: IVP, Drug [place] 00 Form: SOLN, Dosing Weight 104.545, kg, ONCALL, STAT, Start date: 09/05/20 6:39:00 RECORDS OFFICER, Duration: 1 doses or times, Dose = 2.2ml/kg, Max dose = 100ml -- "To be infused by Radiology Staff ONLY" Iohexol 2020-1 No 100 mL, Memoria 2-06 Route: l 12:39: IVP, Drug [place] 00 Form: SOLN, Dosing Weight 104.545, kg, ONCALL, STAT, Start date: 09/05/20 6:39:00 RECORDS OFFICER, Duration: 1 doses or times, Dose = 2.2ml/kg, Max dose = 100ml -- "To be infused by Radiology Staff ONLY" Iohexol 2020-1 No 100 mL, Memoria 2-06 Route: l 12:39: IVP, Drug [place] 00 Form: SOLN, Dosing Weight 104.545, kg, ONCALL, STAT, Start date: 09/05/20 6:39:00 RECORDS OFFICER, Duration: 1 doses or times, Dose = 2.2ml/kg, Max dose = 100ml -- "To be infused by Radiology Staff ONLY" Iohexol 2020-1 No 100 mL, Memoria 2-06 Route: l 12:39: IVP, Drug Raul 00 Form: SOLN, Dosing Weight 104.545, kg, ONCALL, STAT, Start date: 09/05/20 6:39:00 RECORDS OFFICER, Duration: 1 doses or times, Dose = [...] en 2-06 acetaminop l 07:00: hen 4000 [place] 00 mg/day (4 gm/day). (Same as: Tylenol Extra Strength) Acetaminoph 2019-10 No Notes: Max Memoria en 2-06 acetaminop l 07:00: hen 4000 [place] 00 mg/day (4 gm/day). (Same as: Tylenol Extra Strength) Acetaminoph 2019-10 No Notes: Max Memoria en 2-06 acetaminop l 07:00: hen 4000 [place] 00 mg/day (4 gm/day). (Same as: Tylenol [...] l oral tablet 06:48: BID, # 180 [place] 00 tab, 1 Refill(s) amLODIPine 2019-10 Yes 10 mg = 1 Me moria 10 mg oral 2-06 tab, PO, l tablet 06:48: Daily, # [place] 00 90 tab, 0 Refill(s) escitalopra 2019-10 [...] tab, PO, l tablet 06:48: Daily, # [place] 00 90 tab, 0 Refill(s) escitalopra 2019-10 [...] l oral tablet 06:48: BID, # 180 [place] 00 tab, 1 Refill(s) amLODIPine 2019-10 Yes [...] # 180 Raul 00 tab, 1 Refill(s) Oxycodone 2019-10 No Notes: Memori a Hydrochlori - (Same as: l de 1 MG/ML 06:48: 'Roxicodon H ermann Oral 00 e) Solution spironolact 2019-10 Yes 25 mg = 1 M emoria one 25 mg 2-06 tab, PO, l oral tablet 06:48: Daily, # He rmann 00 30 tab, 3 Refill(s) carvedilol 2019-10 Yes 6.25 mg = Me moria 6.25 mg 2-06 1 tab, PO, l oral tablet 06:48: BID, # 180 [place] 00 tab, 1 Refill(s) amLODIPine 2019-10 Yes [...] tab, PO, l Tablet 06:48: Daily, # [place] 00 60 tab, 1 Refill(s) Trelegy 2019-10 [...] tab, PO, l Tablet 06:48: Daily, # [place] 00 60 tab, 1 Refill(s) Trelegy 2019-10 [...] l oral tablet 06:48: BID, # 180 [place] 00 tab, 1 Refill(s) amLODIPine 2019-10 Yes 10 mg = 1 Me moria 10 mg oral 2-06 tab, PO, l tablet 06:48: Daily, # [place] 00 90 tab, 0 Refill(s) escitalopra 2019-10 [...] Blood Glucose Results, Start date: 09/05/20 0:47:00 RECORDS OFFICER, 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, Stop date: 10/05/20 0:46:00 RECORDS OFFICER, 0 Glucagon 2019-10 No 1 mg, Memoria 2 Route: IM, l 06:47: Drug form: [place] 00 PDR/INJ, PRN, Dosing Weight 104.545, kg, PRN Blood Glucose Results, Start date: 09/05/20 0:47:00 RECORDS OFFICER, 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, Stop date: 10/05/20 0:46:00 RECORDS OFFICER, 0 sennosides, 2019-10 No Notes: Jose Francisco zhang INTERMEDIATE 2-06 (Same as: l 06:47: Senokot) POLYETHYLEN [...] Total Volume: 1,000, Start date: 09/05/20 0:47:00 RECORDS OFFICER, Duration: 1 day, Stop date: 09/06/20 0:46:00 RECORDS OFFICER, 1.97, m2, 0 Tums 2019-10 No Notes: [...] 0.65% 2- (Same as: l solution 06:47: [place], Raul 00 Deep Sea Nasal Tyner). Tessalon 2019-10 No Notes: Memoria Perles 2- (Same As: l 06:47: Tessalon Perles) "Do Not Crush" Guaifenesin 2019-10 No Notes: Jose Francisco zhang 2-06 (Same as: l 06:47: Organidin [place] 00 NR) Blistex 2019-10 No Notes: Memoria [...] Blood Glucose Results, Start date: 09/05/20 0:47:00 RECORDS OFFICER, 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, Stop date: 10/05/20 0:46:00 RECORDS OFFICER, 0 Glucagon 2019-10 No 1 mg, Memoria 2 Route: IM, l 06:47: Drug form: [place] 00 PDR/INJ, PRN, Dosing Weight 104.545, kg, PRN Blood Glucose Results, Start date: 09/05/20 0:47:00 RECORDS OFFICER, 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, Stop date: 10/05/20 0:46:00 RECORDS OFFICER, 0 sennosides, 2019-10 No Notes: Jose Francisco zhang INTERMEDIATE 2-06 (Same as: l 06:47: Senokot) POLYETHYLEN [...] Total Volume: 1,000, Start date: 09/05/20 0:47:00 RECORDS OFFICER, Duration: 1 day, Stop date: 09/06/20 0:46:00 RECORDS OFFICER, 1.97, m2, 0 Tums 2019-10 No Notes: [...] 0.65% 2-06 (Same as: l solution 06:47: [place], [place] 00 Deep Sea Nasal [place]ner). Tessalon 2019-10 No Notes: Memoria Perles 2-06 [...] No 12.5 gm, Memor ia 50% Syringe 206 25 mL, l (D50W) 06:47: Route: [place] 00 IVP, Drug Form: INJ, Dosing Weight 104.545, kg, PRN, PRN Blood Glucose Results, Start date: 09/05/20 0:47:00 RECORDS OFFICER, 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, Stop date: 10/05/20 0:46:00 RECORDS OFFICER, 0 Glucagon 2019-10 No 1 mg, Memoria 11-06 Route: IM, l 06:47: Drug form: [place] 00 PDR/INJ, PRN, Dosing Weight 104.545, kg, PRN Blood Glucose Results, Start date: 09/05/20 0:47:00 RECORDS OFFICER, 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, Stop date: 10/05/20 0:46:00 RECORDS OFFICER, 0 sennosides, 2019-10 No Notes: Jose Francisco zhang INTERMEDIATE 2-06 (Same as: l 06:47: Senokot) POLYETHYLEN [...] mL 11-06 Rate: 100 l 06:47: ml/hr, Infuse over: 10 hr, Route: IV, Dosing Weight 104.545 kg, Total Volume: 1,000, Start date: 09/05/20 0:47:00 RECORDS OFFICER, Duration: 1 day, Stop date: 09/06/20 0:46:00 RECORDS OFFICER, 1.97, m2, 0 Tums 2019-10 No Notes: [...] 2019-10 No Notes: Jose Francisco zhang 0.65% 11-06 (Same as: l solution 06:47: [place], [place] 00 Deep Sea Nasal Tyner). Tessalon 2019-10 No Notes: Memoria Perles 2- (Same As: l 06:47: Tessalon Perles) "Do Not Crush" Guaifenesin 2019-10 No Notes: Jose Francisco zhang 2-06 (Same as: l 06:47: Organidin [place] 00 NR) Blistex 2019-10 No Notes: Memoria topical 2 Same as: l ointment 06:47: Blistex Ajay [...] Blood Glucose Results, Start date: 09/05/20 0:47:00 RECORDS OFFICER, 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, Stop date: 10/05/20 0:46:00 RECORDS OFFICER, 0 Glucagon 2019-10 No 1 mg, Memoria 206 Route: IM, l 06:47: Drug form: PDR/INJ, PRN, Dosing Weight 104.545, kg, PRN Blood Glucose Results, Start date: 09/05/20 0:47:00 RECORDS OFFICER, 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, Stop date: 10/05/20 0:46:00 RECORDS OFFICER, 0 sennosides, 2019-10 No Notes: Jose Francisco zhang INTERMEDIATE 2-06 (Same as: l 06:47: Senokot) POLYETHYLEN [...] Total Volume: 1,000, Start date: 09/05/20 0:47:00 RECORDS OFFICER, Duration: 1 day, Stop date: 09/06/20 0:46:00 RECORDS OFFICER, 1.97, m2, 0 Tums 2019-10 No Notes: [...] 0.65% 2-06 (Same as: l solution 06:47: [place], Deep Sea Nasal Tyner). Tessalon 2019-10 No Notes: Memoria Perles 2-06 [...] 06 25 mL, l (D50W) 06:47: Route: [place] 00 IVP, Drug Form: INJ, Dosing Weight 104.545, kg, PRN, PRN Blood Glucose Results, Start date: 09/05/20 0:47:00 RECORDS OFFICER, 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, Stop date: 10/05/20 0:46:00 RECORDS OFFICER, 0 Glucagon 2019-10 No 1 mg, Memoria 11-06 Route: IM, l 06:47: Drug form: [place] 00 PDR/INJ, PRN, Dosing Weight 104.545, kg, PRN Blood Glucose Results, Start date: 09/05/20 0:47:00 RECORDS OFFICER, 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, Stop date: 10/05/20 0:46:00 RECORDS OFFICER, 0 sennosides, 2019-10 No Notes: Jose Francisco zhang INTERMEDIATE 2-06 (Same as: l 06:47: Senokot) [place] 00 POLYETHYLEN 2019-10 No Notes: Jose Francisco zhang [...] mL 2-06 Rate: 100 l 06:47: ml/hr, Raul 00 Infuse over: 10 hr, Route: IV, Dosing Weight 104.545 kg, Total Volume: 1,000, Start date: 09/05/20 0:47:00 RECORDS OFFICER, Duration: 1 day, Stop date: 09/06/20 0:46:00 RECORDS OFFICER, 1.97, m2, 0 Tums 2019-10 No Notes: [...] 0.65% 2- (Same as: l solution 06:47: [place], Deep Sea Nasal [place]ner). Tessalon 2019-10 No Notes: Memoria Perles 2-06 (Same As: l 06:47: Tessalon Perles) "Do Not Crush" Guaifenesin 2019-10 No Notes: Jose Francisco zhang 2-06 (Same as: l 06:47: Organidin NR) Dextrose 2019-10 No 12.5 gm, Memor ia 50% Syringe 2-06 25 mL, l (D50W) 06:47: Route: IVP, Drug Form: INJ, Dosing Weight 104.545, kg, PRN, PRN Blood Glucose Results, Start date: 09/05/20 0:47:00 RECORDS OFFICER, 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, Stop date: 10/05/20 0:46:00 RECORDS OFFICER, 0 Glucagon 2019-10 No 1 mg, Memoria 2-06 Route: IM, l 06:47: Drug form: PDR/INJ, PRN, Dosing Weight 104.545, kg, PRN Blood Glucose Results, Start date: 09/05/20 0:47:00 RECORDS OFFICER, 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, Stop date: 10/05/20 0:46:00 RECORDS OFFICER, 0 sennosides, 2019-10 No Notes: Jose Francisco zhang INTERMEDIATE 2-06 (Same as: l 06:47: Senokot) [place] 00 POLYETHYLEN 2019-10 No Notes: Jose Francisco zhang E GLYCOL 2-06 Dissolve l 3350 06:47: in 8 oz of Raul 00 water or juice. (Same as: Miralax) Ondansetron 2019-10 No Notes: Jose Francisco zhang 2-06 (Same as: l 06:47: Zofran) MEDICATION WASTE Product Size: 4 mg Product Wasted: ___ mg Melatonin 2019-10 No Notes: Memori a 2-06 (Same as: l 06:47: Melatonin) Raul 00 Blistex 2019-10 No Notes: Memoria topical 2-06 Same as: l ointment 06:47: Blistex Ajay n 00 LR IV 1,000 2019-10 No 1,000 mL, M emoria mL 2- Rate: 100 l 06:47: ml/hr, Infuse over: 10 hr, Route: IV, Dosing Weight 104.545 kg, Total Volume: 1,000, Start date: 09/05/20 0:47:00 RECORDS OFFICER, Duration: 1 day, Stop date: 09/06/20 0:46:00 RECORDS OFFICER, 1.97, m2, 0 Tums 2019-10 No Notes: [...] 0.65% 2-06 (Same as: l solution 06:47: [place], [place] 00 Deep Sea Nasal [place]). Tessalon 2019-10 No Notes: Memoria Perles 2-06 (Same As: l 06:47: Tessalon Perles) "Do Not Crush" Guaifenesin 2019-10 No Notes: Jose Francisco zhang 2-06 (Same as: l 06:47: Organidin [place] 00 NR) Blistex 2019-10 No Notes: Memoria [...] 11-06 25 mL, l (D50W) 06:47: Route: [place] 00 IVP, Drug Form: INJ, Dosing Weight 104.545, kg, PRN, PRN Blood Glucose Results, Start date: 09/05/20 0:47:00 RECORDS OFFICER, 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, Stop date: 10/05/20 0:46:00 RECORDS OFFICER, 0 Glucagon 2019-10 No 1 mg, Memoria 11-06 Route: IM, l 06:47: Drug form: [place] 00 PDR/INJ, PRN, Dosing Weight 104.545, kg, PRN Blood Glucose Results, Start date: 09/05/20 0:47:00 RECORDS OFFICER, 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, Stop date: 10/05/20 0:46:00 RECORDS OFFICER, 0 sennosides, 2019-10 No Notes: Jose Francisco zhang INTERMEDIATE 2-06 (Same as: l 06:47: Senokot) POLYETHYLEN [...] Total Volume: 1,000, Start date: 09/05/20 0:47:00 RECORDS OFFICER, Duration: 1 day, Stop date: 09/06/20 0:46:00 RECORDS OFFICER, 1.97, m2, 0 Tums 2019-10 No Notes: Memoria 2-06 (Same As: l 06:47: Tums) [place] 00 Calcium Carbonate 500 mg = 200 mg elemental calcium Dose = mg calcium carbonate ( mg elemental calcium) Simethicone 2019-10 No Notes: Jose Francisco zhang 2-06 (Same as: l 06:47: Mylicon) Lubricant 2019-10 No Notes: Memori a Eye Drops 2-06 (Same as: l 06:47: Aquasite) Nasal Moist 2019-10 No Notes: Jose Francisco zhang 0.65% 2-06 (Same as: l solution 06:47: [place], Raul 00 Deep Sea Nasal [place]). Tessalon 2019-10 No Notes: Memoria Perles 2-06 (Same As: l 06:47: Tessalon Perles) "Do Not Crush" Guaifenesin 2019-10 No Notes: Jose Francisco zhang 2-06 (Same as: l 06:47: Organidin [place] 00 NR) Blistex 2019-10 No Notes: Memoria [...] zhang 2-06 (Same as: l 06:45: Apresoline [place] 00 ) Push over 5 minutes Hydralazine 2019-10 No Notes: Jose Francisco zhang 2-06 (Same as: l 06:45: Apresoline Raul ) Push over 5 minutes Hydralazine 2019-10 No Notes: Jose Francisco zhang 2-06 (Same as: l 06:45: Apresoline [place] 00 ) Push over 5 minutes Hydralazine 2019-10 No Notes: Jose Francisco zhang 2-06 (Same as: l 06:45: Apresoline [place] 00 ) Push over 5 minutes Hydralazine [...] kg, ONCE, STAT, Start date: 09/04/20 22:07:00 RECORDS OFFICER, Stop date: 09/04/20 22:07:00 RECORDS OFFICER Acetaminoph 2019-10 No 1 tab, Jose Francisco zhang en 325 MG / 2-06 Route: PO, l Hydrocodone 04:07: Drug Form: Raul Bitartrate 00 TAB, 5 MG Oral Dosing Tablet Weight 104.545, kg, ONCE, STAT, Start date: 09/04/20 22:07:00 RECORDS OFFICER, Stop date: 09/04/20 22:07:00 REC[employer]DS OFFICER Acetaminoph 2019-10 No 1 tab, Jose Francisco zhang en 325 MG / 2-06 Route: PO, l Hydrocodone 04:07: Drug Form: Raul Bitartrate 00 TAB, 5 MG Oral Dosing Tablet Weight 104.545, kg, ONCE, STAT, Start date: 09/04/20 22:07:00 RECORDS OFFICER, Stop date: 09/04/20 22:07:00 RECORDS OFFICER Acetaminoph 2019-10 No 1 tab, Jose Francisco zhang en 325 MG / 2-06 Route: PO, l Hydrocodone 04:07: Drug Form: Raul Bitartrate 00 TAB, 5 MG Oral Dosing Tablet Weight 104.545, kg, ONCE, STAT, Start date: 09/04/20 22:07:00 RECORDS OFFICER, Stop date: 09/04/20 22:07:00 RECORDS OFFICER Acetaminoph 2020-1 No 1 tab, Jose Francisco zhang en 325 MG / 206 Route: PO, l Hydrocodone 04:07: Drug Form: Raul Bitartrate 00 TAB, 5 MG Oral Dosing Tablet Weight 104.545, kg, ONCE, STAT, Start date: 09/04/20 22:07:00 RECORDS OFFICER, Stop date: 09/04/20 22:07:00 RECORDS OFFICER Acetaminoph 2019- No 1 tab, Jose Francisco zhang en 325 MG / 206 Route: PO, l Hydrocodone 04:07: Drug Form: Raul Bitartrate 00 TAB, 5 MG Oral Dosing Tablet Weight 104.545, kg, ONCE, STAT, Start date: 09/04/20 22:07:00 RECORDS OFFICER, Stop date: 09/04/20 22:07:00 RECORDS OFFICER Acetaminoph 2019-10 No 1 tab, Jose Francisco zhang en 325 MG / 06 Route: PO, l Hydrocodone 04:07: Drug Form: Raul Bitartrate 00 TAB, 5 MG Oral Dosing Tablet Weight 104.545, kg, ONCE, STAT, Start date: 09/04/20 22:07:00 RECORDS OFFICER, Stop date: 09/04/20 22:07:00 RECORDS OFFICER HYDROcodone 2019- No 1{tbl} 1 tablet, [facility] -acetaminop 06-28 Oral, ity of hen (NORCO 20:30: 19:23 ONCE, 1 Carlos as 5) 5-325 mg 00 :00 dose, Mon Med ical tablet 1 06/28/20 at [facility] h tablet 1530, DIMITRIS [...] 2019- No 5mg 5 mg, Unive rs (NORVAS) 06-28 Oral, ity of tablet 5 mg 18:15: 17:25 [place], [facility] 06/28/20 at Branch 1315, DIMITRIS FENTanyl PF 2019-0 2020- No 25ug 25 mcg, Un martha (SUBLIMAZE 06-28 Slow IV ity o f (PF)) 18:15: 17:30 Push, [place] injection 00 :00 ONCE, 1 Medical 25 mcg dose, [facility] Branch 06/28/20 at 1315, STAT diphenoxyla 2020-0 Yes 1{tbl} Take 1 Un martha te-atropine 06-28 tablet by ity of (LOMOTIL) 17:14: mouth [place] 2.5-0.025 43 every 6 Medical mg tablet (six) Branch hours as needed. ALBUTEROL 2020-0 [facility] ity of INHALE 17:14: [place] [address] Medical Branch misoprostol 0 2020- No 200ug [...] hours as needed. ALBUTEROL 2020-0 Yes [facility]. [facility] 06-28 ity of INHALE 12:14: [place] [address] Medical Branch acetaminoph 2020-0 Yes 4647 1{tbl} Take 1 Un martha en-codeine -28 tablet by ity of 300-30 mg 00:00: mouth [place] tablet 00 every 4 Medical (four) Branch hours as needed for Pain (scale 4-6). Indication s: acute pain acetaminoph 2020-0 Yes 4647 1{tbl} Take 1 Un martha en-codeine -28 tablet by ity of 300-30 mg 00:00: [...] Jessie nn 00 tab, 3 Refill(s), Pharmacy: [facility] #[id number], 149.86, cm, 05/25/20 13:41:00 CDT, Height, 95.455, kg, 05/25/20 13:41:00 CDT, Weight primidone 2020-0 Yes 50 mg = 1 Mem oria 50 mg oral 8-25 tab, PO, l tablet 19:03: BID, # 180 Jessie nn 00 tab, 3 Refill(s), Pharmacy: [facility] #[id number], 149.86, cm, 05/25/20 13:41:00 CDT, Height, 95.455, kg, 05/25/20 13:41:00 CDT, Weight primidone 2020-0 Yes 50 mg = 1 Mem oria 50 mg oral 8-25 tab, PO, l tablet 19:03: BID, # 180 Jessie nn 00 tab, 3 Refill(s), Pharmacy: [facility] #[id number], 149.86, cm, 05/25/20 13:41:00 CDT, Height, 95.455, kg, 05/25/20 13:41:00 CDT, Weight primidone 2020-0 Yes 50 mg = 1 Mem oria 50 mg oral 8-25 tab, PO, l tablet 19:03: BID, # 180 Jessie nn 00 tab, 3 Refill(s), Pharmacy: [facility] #[id number], 149.86, cm, 05/25/20 13:41:00 CDT, Height, 95.455, kg, 05/25/20 13:41:00 CDT, Weight primidone 2020-0 Yes 50 mg = 1 Mem oria 50 mg oral 8-25 tab, PO, l tablet 19:03: BID, # 180 Jessie nn 00 tab, 3 Refill(s), Pharmacy: [facility] #[id number], 149.86, cm, 05/25/20 13:41:00 CDT, Height, 95.455, kg, 05/25/20 13:41:00 CDT, Weight primidone 2020-0 Yes 50 mg = 1 Mem oria 50 mg oral 8-25 tab, PO, l tablet 19:03: BID, # 180 Jessie nn 00 tab, 3 Refill(s), Pharmacy: [facility] #[id number], 149.86, cm, 05/25/20 13:41:00 CDT, Height, 95.455, kg, 05/25/20 13:41:00 CDT, Weight primidone 2020-0 Yes 50 mg = 1 Mem oria 50 mg oral 8-25 tab, PO, l tablet 19:03: BID, # 180 Jessie nn 00 tab, 3 Refill(s), Pharmacy: [facility] #[id number], 149.86, cm, 05/25/20 13:41:00 CDT, Height, 95.455, kg, 05/25/20 13:41:00 CDT, Weight primidone 2020-0 No 50 mg = 1 Mem oria 50 mg oral 6-25 tab, PO, l tablet 13:48: Bedtime, # Jessie nn 00 90 tab, 3 Refill(s), Pharmacy: [facility] #[id number], 149.86, cm, 03/24/20 9:12:00 CDT, Height, 90.909, kg, 03/24/20 9:12:00 CDT, Weight primidone 2020-0 No 50 mg = 1 Mem oria 50 mg oral 6-25 tab, PO, l tablet 13:48: Bedtime, # Jessie nn 00 90 tab, 3 Refill(s), Pharmacy: [facility] #[id number], 149.86, cm, 03/24/20 9:12:00 CDT, Height, 90.909, kg, 03/24/20 9:12:00 CDT, Weight primidone 2020-0 No 50 mg = 1 Mem oria 50 mg oral 6-25 tab, PO, l tablet 13:48: Bedtime, # Jessie nn 00 90 tab, 3 Refill(s), Pharmacy: [facility] #[id number], 149.86, cm, 03/24/20 9:12:00 CDT, Height, 90.909, kg, 03/24/20 9:12:00 CDT, Weight primidone 2020-0 No 50 mg = 1 Mem oria 50 mg oral 6-25 tab, PO, l tablet 13:48: Bedtime, # Jessie nn 00 90 tab, 3 Refill(s), Pharmacy: [facility] #[id number], 149.86, cm, 03/24/20 9:12:00 CDT, Height, 90.909, kg, 03/24/20 9:12:00 CDT, Weight primidone 2020-0 No 50 mg = 1 Mem oria 50 mg oral 6-25 tab, PO, l tablet 13:48: Bedtime, # Jessie nn 00 90 tab, 3 Refill(s), Pharmacy: [facility] #[id number], 149.86, cm, 03/24/20 9:12:00 CDT, Height, 90.909, kg, 03/24/20 9:12:00 CDT, Weight primidone 2020-0 No 50 mg = 1 Mem oria 50 mg oral 6-25 tab, PO, l tablet 13:48: Bedtime, # Jessie nn 00 90 tab, 3 Refill(s), Pharmacy: [facility] #[id number], 149.86, cm, 03/24/20 9:12:00 CDT, Height, 90.909, kg, 03/24/20 9:12:00 CDT, Weight primidone 2020-0 No 50 mg = 1 Mem oria 50 mg oral 6-25 tab, PO, l tablet 13:48: Bedtime, # Jessie nn 00 90 tab, 3 Refill(s), Pharmacy: [facility] #[id number], 149.86, cm, 03/24/20 9:12:00 CDT, Height, 90.909, kg, 03/24/20 9:12:00 CDT, Weight donepezil 2020-0 Yes 10 mg = 1 Mem oria 10 mg oral 6-24 tab, PO, l tablet 14:32: Daily, # Raul 00 30 tab, 3 Refill(s), Pharmacy: [facility] #[id number], 149.86, cm, 03/24/20 9:12:00 CDT, Height, 90.909, kg, 03/24/20 9:12:00 CDT, Weight primidone 2020-0 No 50 mg = 1 Mem oria 50 mg oral 6-24 tab, PO, l tablet 14:32: Bedtime, X Jessie nn 00 30 day, # 30 tab, 3 Refill(s), Pharmacy: [facility] #[id number], 149.86, cm, 03/24/20 9:12:00 CDT, Height, 90.909, kg, 03/24/20 9:12:00 CDT, Weight donepezil 2020-0 Yes 10 mg = 1 Mem oria 10 mg oral 6-24 tab, PO, l tablet 14:32: Daily, # Raul 00 30 tab, 3 Refill(s), Pharmacy: [facility] #[id number], 149.86, cm, 03/24/20 9:12:00 CDT, Height, 90.909, kg, 03/24/20 9:12:00 CDT, Weight primidone 2020-0 No 50 mg = 1 Mem oria 50 mg oral 6-24 tab, PO, l tablet 14:32: Bedtime, X Jessie nn 30 day, # 30 tab, 3 Refill(s), Pharmacy: [facility] #[id number], 149.86, cm, 03/24/20 9:12:00 CDT, Height, 90.909, kg, 03/24/20 9:12:00 CDT, Weight donepezil 2020-0 Yes 10 mg = 1 Mem oria 10 mg oral 6-24 tab, PO, l tablet 14:32: Daily, # [place] 00 30 tab, 3 Refill(s), Pharmacy: [facility] #[id number], 149.86, cm, 03/24/20 9:12:00 CDT, Height, 90.909, kg, 03/24/20 9:12:00 CDT, Weight primidone 2020-0 No 50 mg = 1 Mem oria 50 mg oral 6-24 tab, PO, l tablet 14:32: Bedtime, X Jessie nn 30 day, # 30 tab, 3 Refill(s), Pharmacy: [facility] #[id number], 149.86, cm, 03/24/20 9:12:00 CDT, Height, 90.909, kg, 03/24/20 9:12:00 CDT, Weight donepezil 2020-0 Yes 10 mg = 1 Mem oria 10 mg oral 6-24 tab, PO, l tablet 14:32: Daily, # Raul 00 30 tab, 3 Refill(s), Pharmacy: [facility] #[id number], 149.86, cm, 03/24/20 9:12:00 CDT, Height, 90.909, kg, 03/24/20 9:12:00 CDT, Weight primidone 2020-0 No 50 mg = 1 Mem oria 50 mg oral 6-24 tab, PO, l tablet 14:32: Bedtime, X Jessie nn 00 30 day, # 30 tab, 3 Refill(s), Pharmacy: [facility] #[id number], 149.86, cm, 03/24/20 9:12:00 CDT, Height, 90.909, kg, 03/24/20 9:12:00 CDT, Weight donepezil 2020-0 Yes 10 mg = 1 Mem oria 10 mg oral 6-24 tab, PO, l tablet 14:32: Daily, # Raul 00 30 tab, 3 Refill(s), Pharmacy: [facility] #[id number], 149.86, cm, 03/24/20 9:12:00 CDT, Height, 90.909, kg, 03/24/20 9:12:00 CDT, Weight primidone 2020-0 No 50 mg = 1 Mem oria 50 mg oral 6-24 tab, PO, l tablet 14:32: Bedtime, X Jessie nn 30 day, # 30 tab, 3 Refill(s), Pharmacy: [facility] #[id number], 149.86, cm, 03/24/20 9:12:00 CDT, Height, 90.909, kg, 03/24/20 9:12:00 CDT, Weight donepezil 2020-0 Yes 10 mg = 1 Mem oria 10 mg oral 6-24 tab, PO, l tablet 14:32: Daily, # Raul 00 30 tab, 3 Refill(s), Pharmacy: [facility] #[id number], 149.86, cm, 03/24/20 9:12:00 CDT, Height, 90.909, kg, 03/24/20 9:12:00 CDT, Weight primidone 2020-0 No 50 mg = 1 Mem oria 50 mg oral 6-24 tab, PO, l tablet 14:32: Bedtime, X Jessie nn 30 day, # 30 tab, 3 Refill(s), Pharmacy: [facility] #[id number], 149.86, cm, 03/24/20 9:12:00 CDT, Height, 90.909, kg, 03/24/20 9:12:00 CDT, Weight donepezil 2020-0 Yes 10 mg = 1 Mem oria 10 mg oral 6-24 tab, PO, l tablet 14:32: Daily, # Ralu 00 30 tab, 3 Refill(s), Pharmacy: [facility] #[id number], 149.86, cm, 03/24/20 9:12:00 CDT, Height, 90.909, kg, 03/24/20 9:12:00 CDT, Weight primidone No 50 mg = 1 Mem oria 50 mg oral 6-24 tab, PO, l tablet 14:32: Bedtime, X Jessie nn day, # 30 tab, 3 Refill(s), Pharmacy: [facility] #[id number], 149.86, cm, 03/24/20 9:12:00 CDT, Height, 90.909, kg, 03/24/20 9:12:00 CDT, Weight sucralfate 2019- Yes [id number] .[id number][in_ Apply 0.25 Univers malate, 5-21 us] Inches as ity of polymerized 00:00: directed 4 [place] 1 gram/10 00 (four) Medical mL Pste times Branch daily as needed for Pain (scale 1-3). sucralfate 2019-0 2019- No [id number] .[id number][in_ Apply 0.25 Univers malate, 5 09-28 us] Inches as ity of polymerized 00:00: 00:00 directed 4 [place] 1 gram/10 00 :00 (four) Medical mL [...] 7-26 MISC, l 21:45: Daily, # 1 [place] 00 ea, 0 Refill(s) [place] 2018- Yes 1 ea, Memoria 7-26 MISC, l 21:45: Daily, # 1 Raul 00 ea, 0 Refill(s) Adult 2019-0 Yes 81 mg = 1 Memoria Aspirin 81 6-21 tab, CHEW, l mg oral 20:18: Daily, # Ajay n tablet, 00 30 tab, 3 chewable Refill(s), Pharmacy: [facility] #[id number] Adult 2018-0 Yes 81 mg = 1 Memoria Aspirin 81 6-21 tab, CHEW, l mg oral 20:18: Daily, # Ajay n tablet, 00 30 tab, 3 chewable Refill(s), Pharmacy: [facility] #[id number] Adult 2019-0 Yes 81 mg = 1 Memoria Aspirin 81 6-21 tab, CHEW, l mg oral 20:18: Daily, # Ajay n tablet, 00 30 tab, 3 chewable Refill(s), Pharmacy: [facility] #[id number] Adult 2019-0 Yes 81 mg = 1 Memoria Aspirin 81 6-21 tab, CHEW, l mg oral 20:18: Daily, # Ajay n tablet, 00 30 tab, 3 chewable Refill(s), Pharmacy: [facility] #[id number] Adult 2019-0 Yes 81 mg = 1 Memoria Aspirin 81 6-21 tab, CHEW, l mg oral 20:18: Daily, # Ajay n tablet, 00 30 tab, 3 chewable Refill(s), Pharmacy: [facility] #[id number] Adult 2019-0 Yes 81 mg = 1 Memoria Aspirin 81 6-21 tab, CHEW, l mg oral 20:18: Daily, # Ajay n tablet, 00 30 tab, 3 chewable Refill(s), Pharmacy: [facility] #[id number] Adult 2019-0 Yes 81 mg = 1 Memoria Aspirin 81 6-21 tab, CHEW, l mg oral 20:18: Daily, # Ajay n tablet, 00 30 tab, 3 chewable Refill(s), Pharmacy: [facility] #[id number] levothyroxi 2019-0 Yes 125 Memori a [...] 00 30 cap, 0 capsule Refill(s) amLODIPine 2018-0 Yes 5 mg = 1 Mem oria 5 mg oral 5-24 tab, PO, l tablet 20:06: Daily, # [place] 00 90 tab, 0 Refill(s) Atropine 2019-0 Yes 2 tab, PO, Mem oria Sulfate 5-24 PRN, PRN l 0.025 MG / 20:06: for loose Catalino rmbernie Diphenoxyla 00 stool, 0 te Refill(s) Hydrochlori de 2.5 MG Oral Tablet [Lomotil] lovastatin 0 Yes 20 mg = 1 [...] Raul 00 30 tab, 0 Refill(s) donepezil 2019-0 Yes 10 mg = 1 Mem oria 10 mg oral 5-24 tab, PO, l tablet 20:06: Daily, # [place] 00 30 tab, 0 Refill(s) metoprolol 2019-0 Yes 50 mg = 1 Me moria 50 mg oral 5-24 tab, PO, l tablet, 20:06: Daily, # Ajay n extended 00 30 tab, 0 release Refill(s) Escitalopra 2019- Yes 20 mg = 1 Keesha emoria [...] tab, PO, l tablet 20:06: Daily, # [place] 00 90 tab, 0 Refill(s) Atropine 2019-0 [...] tab, PO, l tablet 20:06: BID, 0 [place] 00 Refill(s) lisinopril 2019- Yes 40 mg = 1 Me moria 40 mg oral 5-24 tab, PO, l tablet 20:06: Daily, # Raul 00 30 tab, 0 Refill(s) ProAir HFA 2019-0 Yes 1 - 2 Memori a 5-24 puffs, PO, l 20:06: Q4H, PRN Raul 00 Wheezing / cough / shortness of breath, # 1 ea, 0 Refill(s) donepezil 2019-0 Yes 10 mg = 1 Mem oria 10 mg oral 5-24 tab, PO, l tablet 20:06: Daily, # Raul 00 30 tab, 0 Refill(s) ProAir HFA 2019-0 Yes 1 - 2 Memori a 5-24 puffs, PO, l 20:06: Q4H, PRN [place] 00 Wheezing / cough / shortness of breath, # 1 ea, 0 Refill(s) metoprolol 2019-0 Yes 50 mg = [...] tab, PO, l tablet 20:06: Daily, # [place] 00 90 tab, 0 Refill(s) Atropine Yes [...] tab, PO, l tablet 20:06: BID, 0 [place] 00 Refill(s) lisinopril 2019 Yes 40 mg = 1 Me moria 40 mg oral 5-24 tab, PO, l tablet 20:06: Daily, # [place] 00 30 tab, 0 Refill(s) donepezil Yes 10 mg = 1 Mem oria 10 mg oral 5-24 tab, PO, l tablet 20:06: Daily, # [place] 00 30 tab, 0 Refill(s) ProAir HFA Yes 1 - 2 Memori a 5-24 puffs, PO, l 20:06: Q4H, PRN [place] 00 Wheezing / cough / shortness of breath, # 1 ea, 0 Refill(s) metoprolol Yes 50 mg = 1 Me moria 50 mg oral 5-24 tab, PO, l tablet, 20:06: Daily, # Ajay n extended 00 30 tab, 0 release Refill(s) Escitalopra Yes 20 mg = 1 Keesha emoria [...] tab, PO, l tablet 20:06: Daily, # [place] 00 90 tab, 0 Refill(s) Atropine Yes [...] Escitalopra 2019- Yes 20 mg = 1 Keesha emoria [...] Raul 00 90 tab, 0 Refill(s) Atropine 2018- Yes 2 tab, PO, Mem oria Sulfate [...] tab, PO, l tablet 20:06: Daily, # [place] 00 30 tab, 0 Refill(s) donepezil [id number] Yes 10 mg = 1 Mem oria [...] Escitalopra 2019- Yes 20 mg = 1 Keesha emoria [...] tab, PO, l tablet 20:06: Daily, # [place] 00 90 tab, 0 Refill(s) Atropine Yes [...] tab, PO, l tablet 20:06: BID, 0 [place] 00 Refill(s) lisinopril 2019- Yes 40 mg = 1 Me moria 40 mg oral 5-24 tab, PO, l tablet 20:06: Daily, # Raul 00 30 tab, 0 Refill(s) donepezil 2019 Yes 10 mg = 1 Mem oria 10 mg oral 5-24 tab, PO, l tablet 20:06: Daily, # [place] 00 30 tab, 0 Refill(s) ProAir HFA 2019-0 Yes 1 - 2 Memori a 5-24 puffs, PO, l 20:06: Q4H, PRN [place] 00 Wheezing / cough / shortness of [...] Raul 00 90 tab, 0 Refill(s) Atropine 2018- Yes 2 tab, PO, Mem oria Sulfate [...] tab, PO, l tablet 20:06: BID, 0 [place] 00 Refill(s) lisinopril 2019- Yes 40 mg [...] puffs, PO, l 20:06: Q4H, PRN Raul Wheezing / cough / shortness of breath, # 1 ea, 0 Refill(s) acetaminoph 2017-10 Yes Univer s en-codeine 1-18 ity of 300-30 mg 00:00: [place] tablet [address] [place] [address] Branch acetaminoph 2017-10 Yes Univer s en-codeine 18 ity of 300-30 mg 00:00: [place] tablet 00 Medical Branch acetaminoph 2017-10 2020- No Unive rs en-codeine 10-18 ity of 300-30 mg 00:00: 00:00 [place] [...] donepezil Yes 10mg Take 10 mg Un mratha (ARICEPT) 3-07 by mouth ity of 10 [...] daily. [place] capsule 36 Medical Branch fenofibrate 0 Yes 145mg Take 145 U nivers (TRICOR) [...] daily. [place] tablet 36 Medical Branch misoprostol 0 Yes 200ug Take 200 U nivers (CYTOTEC) 3-07 mcg by ity of 200 mcg 17:04: mouth [place] tablet 36 daily. Medical Branch amLODIPine 2017-0 Yes 5mg Take 5 mg Un martha (NORVASC) 5 3-07 by mouth ity of mg tablet 17:04: daily. [place] [address] Medical Branch lovastatin 2017-0 Yes 20mg Take [...] daily. [place] capsule 36 Medical Branch metoprolol 2016-0 Yes 50mg Take 50 mg U nivers succinate 3-07 by mouth ity of XL (TOPROL 17:04: daily. [place] XL) 50 mg 36 Medical 24 hr [...] mouth ity of mg tablet 17:04: daily. [place] [address] Medical Branch lovastatin 2017-0 Yes 20mg Take 20 mg U nivers (MEVACOR) 3-07 by mouth ity of 20 mg 17:04: daily. [place] tablet 36 Medical Branch lisinopril 2017 Yes 40mg Take [...] daily. [place] capsule 36 Medical Branch metoprolol Yes 50mg Take 50 mg U nivers succinate 3-07 by mouth ity of XL (TOPROL 11:04: daily. [place] XL) 50 mg 36 Medical 24 hr [...] daily. [place] tablet 36 Medical Branch amLODIPine 2017 Yes 5mg Take 5 mg Un martha (NORVASC) 5 3-07 by mouth ity of mg tablet 11:04: daily. [place] [address] Medical Branch lovastatin [address] Yes 20mg Take 20 mg U nivers (MEVACOR) 3-07 by mouth ity of 20 mg 11:04: daily. [place] tablet 36 Medical Branch Pantoprazol Pantoprazol No Pantoprazo e [...] HCl 10 MG t} HCl 10 MG Advair Advair No Advair Devoted Diskus 250 Diskus 250 Diskus 250 Medical mcg-50 mcg-50 mcg-50 Group mcg/dose mcg/dose mcg/dose powder for powder for powder for inhalation inhalation inhalation INHALE 1 INHALE 1 INHALE 1 PUFF BY PUFF BY PUFF BY MOUTH TWICE MOUTH TWICE MOUTH DAILY DAILY TWICE DAILY Flublok Flublok No Flublok Quadrivalen Quadrivalen Quadrivale [...] Albuterol Sulfate HFA Sulfate HFA Sulfate HFA albuterol albuterol No albuterol Devoted sulfate HFA sulfate HFA sulfate Medical 90 90 HFA 90 Group mcg/actuati mcg/actuati mcg/actuat on aerosol on aerosol ion inhaler inhaler aerosol INHALE 2 INHALE 2 inhaler PUFFS BY PUFFS BY INHALE 2 MOUTH EVERY MOUTH EVERY PUFFS BY 6 HOURS 6 HOURS MOUTH EVERY 6 HOURS Chlorhexidi Chlorhexidi No Chlorhexid ne ne ine Gluconate Gluconate Gluconate traMADol traMADol No traMADol HCl HCl HCl buPROPion buPROPion No buPROPion HCl ER (XL) HCl ER (XL) HCl ER (XL) Lovastatin Lovastatin No QD Lovastatin 20 MG 20 MG 20 MG Furosemide Furosemide No Furosemide Potassium Potassium No Potassium Chloride ER Chloride ER Chloride ER amlodipine amlodipine No amlodipine Devoted 10 mg 10 mg 10 mg Medical tablet TAKE tablet TAKE tablet Group 1 TABLET BY 1 TABLET BY TAKE 1 MOUTH EVERY MOUTH EVERY TABLET BY DAY DAY MOUTH EVERY DAY Lomotil Lomotil No Lomotil Gabapentin Gabapentin No Gabapentin Omeprazole Omeprazole No QD Omeprazole 40 MG 40 MG 40 MG Nitrofurant Nitrofurant No Nitrofuran oin Monohyd oin Monohyd toin Macro Macro Monohyd Macro Metoprolol Metoprolol No Metoprolol Succinate Succinate Succinate amLODIPine amLODIPine No 1{table QD amLODIPine Besylate 5 Besylate 5 t} Besylate 5 MG MG MG amlodipine amlodipine No amlodipine Devoted 5 mg [...] Clindamycin No Clindamyci HCl HCl n HCl Breo Breo No Breo Devoted Ellipta 200 Ellipta 200 Ellipta Medical mcg-25 mcg-25 200 mcg-25 Group mcg/dose mcg/dose mcg/dose powder for powder for powder for inhalation inhalation inhalation TAKE 1 PUFF TAKE 1 PUFF TAKE 1 BY MOUTH BY MOUTH PUFF BY EVERY DAY EVERY DAY MOUTH EVERY DAY Cephalexin Cephalexin No Cephalexin Ciprofloxac Ciprofloxac No [...] en-Codeine en-Codeine hen-Codein #3 #3 e #3 carvedilol carvedilol No carvedilol Devoted 6.25 mg 6.25 mg 6.25 mg Medica l tablet TAKE tablet TAKE tablet Group 1 TABLET BY 1 TABLET BY TAKE 1 MOUTH TWICE MOUTH TWICE TABLET BY A DAY A DAY MOUTH TWICE A DAY Famotidine Famotidine No Famotidine Donepezil Donepezil No 1{table QD Donepezil HCl 10 MG HCl 10 MG t} HCl 10 MG Flublok Flublok No Flublok Quadrivalen Quadrivalen Quadrivale t t nt Potassium Potassium No Potassium Chloride Chloride Chloride Neeta ER Neeta ER Neeta ER donepezil donepezil No donepezil Devoted 10 mg [...] Chlorhexid ne ne ine Gluconate Gluconate Gluconate escitalopra escitalopra No escitalopr Devoted m 20 mg m 20 mg am 20 mg Medic al tablet TAKE tablet TAKE tablet Group 1 TABLET BY 1 TABLET BY TAKE 1 MOUTH TWICE MOUTH TWICE TABLET BY A DAY A DAY MOUTH TWICE A DAY traMADol traMADol No traMADol HCl HCl HCl buPROPion buPROPion No buPROPion HCl ER (XL) HCl ER (XL) HCl ER (XL) Lovastatin Lovastatin No QD Lovastatin 20 MG 20 MG 20 MG Furosemide Furosemide No Furosemide famotidine famotidine No famotidine Devoted 20 mg [...] oin Monohyd toin Macro Macro Monohyd Macro gabapentin gabapentin No gabapentin Devoted 300 mg 300 mg 300 mg Medical capsule capsule capsule Group TAKE 1 TAKE 1 TAKE 1 CAPSULE BY CAPSULE BY CAPSULE BY MOUTH TWICE MOUTH TWICE MOUTH A DAY A DAY TWICE A DAY Metoprolol Metoprolol No Metoprolol Succinate Succinate Succinate amLODIPine amLODIPine No 1{table QD amLODIPine Besylate 5 Besylate 5 t} Besylate 5 MG MG MG Mupirocin Mupirocin No Mupirocin Calcium Calcium Calcium Spironolact Spironolact No Spironolac one one tone ipratropium ipratropium No ipratropiu Devoted bromide 21 [...] Trelegy Trelegy No Trelegy Ellipta Ellipta Ellipta levothyroxi levothyroxi No levothyrox Devoted ne 125 [...] Carvedilol No Carvedilol Primidone Primidone No Primidone lisinopril lisinopril No 1 Q1D lisinopril Devoted 40 mg 40 mg 40 mg Medical tablet Take tablet Take tablet Group 1 tablet 1 tablet Take 1 every day every day tablet by oral by oral every day route. route. by oral route. Levothyroxi Levothyroxi No Levothyrox ne Sodium ne [...] Omeprazole 40 MG 40 MG 40 MG lovastatin lovastatin No lovastatin Devoted 20 [...] Pantoprazo e Sodium e Sodium le Sodium metoprolol metoprolol No metoprolol Devoted succinate succinate succinate Medical 50 mg daily 50 mg daily 50 mg Group daily Potassium Potassium No Potassium Chloride Chloride Chloride Neeta ER Neeta ER Neeta ER Diclofenac Diclofenac No Diclofenac Sodium 1 % Sodium 1 % Sodium 1 % Cephalexin Cephalexin No Cephalexin Diclofenac Diclofenac No Diclofenac Sodium 1 % Sodium 1 % Sodium 1 % Donepezil Donepezil No 1{table QD Donepezil HCl 10 MG HCl 10 MG t} HCl 10 MG omeprazole omeprazole No omeprazole Devoted 40 mg 40 mg 40 mg Medical capsule,del capsule,del capsule,de Group ayed ayed layed release release release TAKE 1 TAKE 1 TAKE 1 CAPSULE BY CAPSULE BY CAPSULE BY MOUTH EVERY MOUTH EVERY MOUTH DAY DAY EVERY DAY Lisinopril Lisinopril No 1{table QD [...] t t nt Gabapentin Gabapentin No Gabapentin potassium potassium No potassium Devoted chloride ER [...] one one tone Primidone Primidone No Primidone primidone primidone No primidone Devoted 50 mg 50 mg 50 mg Medical tablet TAKE tablet TAKE tablet Group 1 TABLET BY 1 TABLET BY TAKE 1 MOUTH MOUTH TABLET BY EVERYDAY AT EVERYDAY AT MOUTH BEDTIME BEDTIME EVERYDAY AT BEDTIME Gabapentin Gabapentin No Gabapentin Trelegy Trelegy No [...] DAY A DAY MOUTH TWICE A DAY Lomotil Lomotil No Lomotil Diclofenac Diclofenac No [...] HCl 2 MG t} HCl 2 MG spironolact spironolact No spironolac Devoted one 25 mg one 25 mg tone 25 mg Medical tablet TAKE tablet TAKE tablet Group 1 TABLET BY 1 TABLET BY TAKE 1 MOUTH EVERY MOUTH EVERY TABLET BY DAY DAY MOUTH EVERY DAY Gabapentin Gabapentin No Gabapentin Chlorhexidi Chlorhexidi No [...] Fluocinonid Fluocinonid No Fluocinoni e e de topiramate topiramate No topiramate Devoted 25 mg 25 mg 25 mg Medical tablet TAKE tablet TAKE tablet Group 1 TABLET BY 1 TABLET BY TAKE 1 MOUTH AT MOUTH AT TABLET BY BEDTIME BEDTIME MOUTH AT BEDTIME traMADol traMADol No traMADol HCl HCl HCl [...] HCl 10 MG t} HCl 10 MG Trelegy Trelegy No Trelegy Devote d Ellipta 100 Ellipta 100 Ellipta Medical mcg-62.5 mcg-62.5 100 Group mcg-25 mcg mcg-25 mcg mcg-62.5 powder for powder for mcg-25 mcg inhalation inhalation powder for INHALE 1 INHALE 1 inhalation PUFF BY PUFF BY INHALE 1 MOUTH EVERY MOUTH EVERY PUFF BY DAY DAY MOUTH EVERY DAY Potassium [...] Source Systolic blood 2022-08-05 20:00:00 122 mm[Hg] [facility] [place] Diastolic blood 2022-08-05 20:00:00 77 mm[Hg] [facility] Heart rate 2022-08-05 20:00:00 50 /min [facility] Respiratory rate 2022-08-05 20:00:00 18 /min [facility] Oxygen saturation in 2022-08-05 20:00:00 94 /min [facility] Arterial blood by [facility] Pulse oximetry Branch Body temperature 2022-08-05 17:24:00 36 Tracee [facility] Body height 2022-08-05 17:24:00 149.9 cm [facility] Body weight 2022-08-05 17:24:00 83.915 kg [facility] BMI 2022-08-05 17:24:00 37.37 kg/m2 [facility] height 2022-07-27 13:15:00 59 [in_i] [facility] weight 2022-07-27 13:15:00 188.2 [lb_av] [facility] temperature 2022-07-27 13:15:00 97.6 [degF] [facility] bmi 2022-07-27 13:15:00 38.01 kg/m2 [facility] blood pressure 2022-07-27 13:15:00 125 mm[Hg] [facility] systolic [facility] blood pressure 2022-07-27 13:15:00 82 mm[Hg] [facility] diastolic [facility] height 2022-06-15 13:30:00 59 [in_i] [facility] weight 2022-06-15 13:30:00 193 [lb_av] [facility] temperature 2022-06-15 13:30:00 98.1 [degF] [facility] bmi 2022-06-15 13:30:00 38.98 kg/m2 [facility] blood pressure 2022-06-15 13:30:00 128 mm[Hg] [facility] blood pressure 2022-06-15 13:30:00 76 mm[Hg] [facility] - diastolic [facility] height 2021-10-17 14:30:00 59 [in_i] [facility] weight 2021-10-17 14:30:00 220 [lb_av] [facility] temperature 2021-10-17 14:30:00 97.9 [degF] [facility] bmi 2021-10-17 14:30:00 44.43 kg/m2 [facility] blood pressure 2021-10-17 14:30:00 126 mm[Hg] [facility] - systolic [facility] blood pressure 2021-10-17 14:30:00 74 mm[Hg] [facility] - diastolic [facility] Systolic blood 2020-06-28 19:30:00 180 mm[Hg] Univer sity of pressure [facility] Diastolic blood 2020-06-28 19:30:00 82 mm[Hg] Unive rsity of pressure [facility] Heart rate 2020-06-28 19:30:00 61 /min [facility] Respiratory rate 2020-06-28 19:13:00 17 /min [facility] Oxygen saturation in 2020-06-28 19:13:00 96 /min [facility] blood by [place] [employer] [facility] Pulse oximetry Branch Body temperature 2020-06-28 16:54:00 36.33 Tracee [facility] Body weight 2020-06-28 16:54:00 95.255 kg [facility] BMI 2020-06-28 16:54:00 42.41 kg/m2 [facility] Systolic blood 2020-06-28 19:30:00 180 mm[Hg] Univer sity of pressure [facility] Diastolic blood 2020-06-28 19:30:00 82 mm[Hg] Unive rsity of pressure [facility] Heart rate 2020-06-28 19:30:00 61 /min [facility] Respiratory rate 2020-06-28 19:13:00 17 /min [facility] Oxygen saturation in 2020-06-28 19:13:00 96 /min [facility] blood by [place] [employer] tania Pulse oximetry Branch Body temperature 2020-06-28 16:54:00 36.33 Tracee [facility] Body weight 2020-06-28 16:54:00 95.255 kg [facility] BMI 2020-06-28 16:54:00 42.41 kg/m2 [facility] Systolic blood 2020-02-19 19:23:00 160 mm[Hg] [facility] of pressure [facility] Diastolic blood 2020-02-19 19:23:00 84 mm[Hg] Unive rsity of pressure [facility] Heart rate 2020-02-19 19:23:00 63 /min [facility] Body temperature 2020-02-19 19:23:00 36.39 Tracee [facility] Respiratory rate 2020-02-19 19:23:00 15 /min [facility] Body height 2020-02-19 19:23:00 149.9 cm [facility] Body weight 2020-02-19 19:23:00 99.791 kg [facility] BMI 2020-02-19 19:23:00 44.43 kg/m2 [facility] Oxygen saturation in 2020-02-19 19:23:00 96 /min [facility] blood by [place] [employer] t[facility] Pulse oxim[facility] Branch Systolic blood 2020-02-19 19:23:00 160 mm[Hg] Univer [facility]ity of pressure [facility] Diastolic blood 2020-02-19 19:23:00 84 mm[Hg] Unive rsity of pressure [facility] Heart rate 2020-02-19 19:23:00 63 /min [facility] Body temperature 2020-02-19 19:23:00 36.39 Tracee [facility] Respiratory rate 2020-02-19 19:23:00 15 /min [facility] Body height 2020-02-19 19:23:00 149.9 cm [facility] Body weight 2020-02-19 19:23:00 99.791 kg [facility] BMI 2020-02-19 19:23:00 44.43 kg/m2 [facility] Oxygen saturation in 2020-02-19 19:23:00 96 /min [facility] blood by [place] [employer] t[facility] Pulse [facility]xim[facility] Branch Systolic blood 2019-12-10 04:00:00 202 mm[Hg] Univer sity of pressure [facility] Diastolic blood 2019-12-10 04:00:00 92 mm[Hg] Unive rsity of pressure [facility] Heart rate 2019-12-10 04:00:00 75 /min [facility] Respiratory rate 2019-12-10 04:00:00 18 /min [facility] Oxygen saturation in 2019-12-10 04:00:00 98 /min [facility] blood by [place] [employer] tania Pulse oxim[facility] Branch Body temperature 2019-12-10 02:51:13 36.39 Tracee [facility] 2019-12-10 02:28:00 162.6 cm [facility] Body weight 2019-12-10 02:28:00 104.327 kg [facility] BMI 2019-12-10 02:28:00 39.48 kg/m2 Universi ty [facility] Systolic blood 2019-12-10 04:00:00 202 mm[Hg] Univer sity of pressure [facility] Diastolic blood 2019-12-10 04:00:00 92 mm[Hg] Unive rsity of pressure [facility] Heart rate 2019-12-10 04:00:00 75 /min Universi ty [facility] Respiratory rate 2019-12-10 04:00:00 18 /min [facility] Oxygen saturation in 2019-12-10 04:00:00 98 /min University Arterial blood by [facility] Pulse oximetry Branch Body temperature 2019-12-10 02:51:13 36.39 Tracee [facility] ersity [facility] Body height 2019-12-10 02:28:00 162.6 cm Universi ty [facility] Body weight 2019-12-10 02:28:00 104.327 kg Universi ty [facility] BMI 2019-12-10 02:28:00 39.48 [facility] Systolic (mm Hg) 2022-11-23 01:23:00 Jose Francisco rial [place] Diastolic (mm Hg) 2022-11-23 01:23:00 Mem orial [place] Temperature Oral (F) 2022-11-22 02:00:00 98.2 F [facility] Height 2022-11-21 10:11:00 4 [ft_i] [facility] BMI Calculated 2022-11-21 10:11:00 [facility] Weight 2022-11-21 10:11:00 [facility] Heart Rate 2022-11-21 10:11:00 [facility] Systolic (mm Hg) 2021-11-02 20:14:00 Jose Francisco rial [facility]ul Diastolic (mm Hg) 2021-11-02 20:14:00 Mem orial [place] Heart Rate 2021-11-02 20:14:00 [facility] Respitory Rate 2021-11-02 20:14:00 [facility] Height 2021-11-02 20:14:00 149.86 cm [facility] Weight 2021-11-02 20:14:00 [facility] BMI Calculated 2021-11-02 20:14:00 [facility] [place] Systolic (mm Hg) 2020-12-24 18:59:00 Jose Francisco rial [facility]ul Diastolic (mm Hg) 2020-12-24 18:59:00 Mem orial [place] Heart Rate 2020-12-24 18:59:00 [facility] Respitory Rate 2020-12-24 18:59:00 [facility] [place] Height 2020-12-24 18:59:00 149.86 cm [facility] Weight 2020-12-24 18:59:00 [facility] BMI Calculated 2020-12-24 18:59:00 [facility] Systolic (mm Hg) 2020-09-06 20:47:00 Jose Francisco rial [place] Diastolic (mm Hg) 2020-09-06 20:47:00 Mem orial [facility] Temperature Oral (F) 2020-09-06 18:26:00 99.7 F [facility] Heart Rate 2020-09-06 18:26:00 [facility] Respitory Rate 2020-09-06 18:26:00 [facility] Systolic (mm Hg) 2020-09-06 18:26:00 Jose Francisco rial [place] Diastolic (mm Hg) 2020-09-06 18:26:00 Mem orial [place] Temperature Oral (F) 2020-09-06 14:09:00 98.1 F [facility] Heart Rate 2020-09-06 14:09:00 [facility] Respitory Rate 2020-09-06 14:09:00 Memori [facility] [place] Systolic (mm Hg) 2020-09-06 14:09:00 Jose Francisco rial [place] Diastolic (mm Hg) 2020-09-06 14:09:00 Mem orial [facility] Temperature Oral (F) 2020-09-06 10:00:00 98.1 F [facility] Heart Rate 2020-09-06 10:00:00 [facility] Respitory Rate 2020-09-06 10:00:00 Memori [facility] [place] Temperature Oral (F) 2020-09-06 06:30:00 97.5 F [facility] Heart Rate 2020-09-06 06:30:00 [facility] Respitory Rate 2020-09-06 06:30:00 Memori [facility] [place] Systolic (mm Hg) 2020-09-06 06:30:00 Jose Francisco rial [place] Diastolic (mm Hg) 2020-09-06 06:30:00 Mem orial [place] Temperature Oral (F) 2020-09-06 02:45:00 97.8 F [facility] Heart Rate 2020-09-06 02:45:00 [facility] Respitory Rate 2020-09-06 02:45:00 [facility] Systolic (mm Hg) 2020-09-06 02:45:00 Jose Francisco rial [facility]ul Diastolic (mm Hg) 2020-09-06 02:45:00 Mem orial [place] Temperature Oral (F) 2020-09-05 22:00:00 97 F [facility] Heart Rate 2020-09-05 22:00:00 [facility] Respitory Rate 2020-09-05 22:00:00 [facility] Systolic (mm Hg) 2020-09-05 22:00:00 Jose Francisco rial [place] Diastolic (mm Hg) 2020-09-05 22:00:00 Mem o[facility] [place] Height 2020-09-05 02:46:00 124.46 cm [facility] BMI Calculated 2020-09-05 02:46:00 Memori [facility] [place] Weight 2020-09-05 02:46:00 [facility] Systolic (mm Hg) 2020-05-25 18:41:00 Jose Francisco rial Raul Diastolic (mm Hg) 2020-05-25 18:41:00 Mem orial [facility] Heart Rate 2020-05-25 18:41:00 [facility] Respitory Rate 2020-05-25 18:41:00 Memori al [place] Temperature Oral (F) 2020-05-25 18:41:00 98.6 F [facility] Height 2020-05-25 18:41:00 149.86 cm [facility] Weight 2020-05-25 18:41:00 [facility] BMI Calculated 2020-05-25 18:41:00 Memori al [place] Systolic (mm Hg) 2020-03-24 14:12:00 Jose Francisco rial [facility]ul Diastolic (mm Hg) 2020-03-24 14:12:00 Mem orial [place] Heart Rate 2020-03-24 14:12:00 [facility] Height 2020-03-24 14:12:00 149.86 cm [facility] Weight 2020-03-24 14:12:00 [facility] BMI Calculated 2020-03-24 14:12:00 Memori al [place] Systolic (mm Hg) 2019-07-24 19:29:00 Jose Francisco rial [place] Diastolic (mm Hg) 2019-07-24 19:29:00 Mem orial Rual Heart Rate 2019-07-24 19:29:00 [facility] Respitory Rate 2019-07-24 19:29:00 Mem[facility] [place] Height 2019-07-24 19:29:00 149.86 cm [facility] Weight 2019-07-24 19:29:00 [facility] BMI Calculated 2019-07-24 19:29:00 Memori al [place] Systolic (mm Hg) 2019-05-21 19:25:00 Jose Francisco rial [place] Diastolic (mm Hg) 2019-05-21 19:25:00 Mem orial [place] Heart Rate 2019-05-21 19:25:00 [facility] Respitory Rate 2019-05-21 19:25:00 Memori al [place] Height 2019-05-21 19:25:00 149.86 cm [facility] Weight 2019-05-21 19:25:00 [facility] BMI Calculated 2019-05-21 19:25:00 Memori [facility] Height 2019-03-21 19:45:00 147.32 cm [facility] Weight 2019-03-21 19:45:00 [facility] BMI Calculated 2019-03-21 19:45:00 Memori al [place] Respitory Rate 2019-03-21 19:45:00 Memori al [facility] Heart Rate 2019-03-21 19:45:00 [facility] Systolic (mm Hg) 2019-03-21 19:45:00 Jose Francisco rial Raul Diastolic (mm Hg) 2019-03-21 19:45:00 Mem orial [facility] Height 2019-02-21 20:01:00 149.86 cm [facility] Weight 2019-02-21 20:01:00 [facility] BMI Calculated 2019-02-21 20:01:00 Memori al [facility] Respitory Rate 2019-02-21 20:01:00 Carlotta Samano Heart Rate 2019-02-21 20:01:00 Nancy Carter Systolic (mm Hg) 2019-02-21 20:01:00 Jose Francisco Carter Diastolic (mm Hg) 2019-02-21 20:01:00 Chao matsonpablo Raul Procedures Procedure Date / Time Performed Performing Clinician Mike eastman XR CHEST 1 VW 2022-08-05 17:51:10 Carly Sinclair [facility] TROPONIN I 2022-08-05 17:31:00 Carly Sinclair [facility] COMP. METABOLIC PANEL 2022-08-05 17:31:00 Carly Sinclair [facility] ([id number]) [facility] CBC WITH DIFF 2022-08-05 17:31:00 Carly Sinclair [facility] RAPID INFLUENZA A/B 2022-08-05 17:31:[address] [facility] N-TERMINAL PRO-BNP 2022-08-05 17:31:00 Carly Sinclair [facility] COVID-19 (ID NOW 2022-08-05 17:31:00 Carly Sinclair [facility] RAPID TESTING) [facility] CONSENT/REFUSAL FOR 2022-08-05 17:11:04 [facility] Name [facility] TREATMENT XR FOREARM 2 VW RIGHT 2020-06-28 17:49:01 Sariah Miller [facility] XR SHOULDER 2+ VW 2020-06-28 17:49:01 Sariah Miller [facility] CONSENT/REFUSAL FOR 2020-02-19 18:58:01 [facility] Unassigned, No [facility] Name [facility] TREATMENT XR TIBIA FIBULA 2 VW 2019-12-10 03:20:47 Timi Aguirre [facility] Encounters Start End Encounter Admission Attending Care Care Encounter Source Date/Time Date/Time Type Type Clinicians Facility Department ID 2022-11-23 Outpatient [facility] [id number] [place] 15:23:09 [id number] Health 2022-11-13 [facility] [id number] Common 13:04:00 [id number] [facility] 2022-11-09 Outpatient STLMLC STLMLC [id number] Common 12:35:00 [id number] [facility] 2022-07-26 Outpatient STLMLC STLMLC [id number] Common 16:10:00 [id number] [facility] 2022-06-16 Outpatient STLMLC STLMLC [id number] Common 09:53:02 [id number] [facility] 2021-10-26 Outpatient STLMLC STLMLC [id number] Common 13:00:46 [id number] [facility] 2021-10-26 Outpatient STLMLC STLMLC [id number] Common 12:25:20 [id number] [facility] 2021-10-26 Outpatient STLMLC STLMLC [id number] Common 12:16:59 [id number] [facility] 2021-10-05 Inpatient NIC Sanderson, HCAWU ADMI [id number] [facility] 11:00:00 Anurag 64 [facility] 2021-07-29 Emergency [facility] [id number] Univers 19:46:17 it[facility]ly [facility] 2021-07-28 Emergency [facility] [id number] Univers 21:53:33 [facility] 2022-11-21 2022-11-22 [facility] [id number] Memoria 10:09:00 20:23:00 n [place] 00 [facility] 2022-11-21 2022-11-22 [facility] [id number] Memoria 10:09:00 20:23:00 n Raul 00 l [facility] 2022-11-21 2022-11-22 Outpatient E JOSH [facility] [id number] [facility] 08:46:00 14:23:00 PEREZ 2022-11-21 2022-11-[address] [facility] [id number] 04:09:00 14:23:00 Perez Seiji 00 2022-11-01 2022-11-01 (TEL) STLMLC STLMLC [id number] Co mmon 00:00:00 00:00:00 [facility] 2022-09-29 2022-09-29 Inpatient JAMIE Anderson [id number] [facility] 11:00:00 11:00:00 Anurag 98 [facility] 2022-09-13 2022-09-13 CAV Allegra 2.16.840. 2.16.840.1. CLAC [id number] [facility] 20:30:00 21:00:00 Revisit: Valentín [id number] Medical Gap [id number] Closure & [id number] Clinical Check-in 2022-09-05 2022-09-05 (TEL) STLMLC STLC [id number] Co mmon 00:00:00 00:00:00 [facility] 2022-08-05 2022-08-05 [facility] [id number] Univers 12:20:00 15:34:00 CARLY dominique [facility] 2022-08-05 2022-08-05 [facility] [id number] Univers 12:20:00 15:34:00 Carly AMIN [id number] [facility] [id number] [facility] [id number] [address] 2022-08-03 2022-08-03 [place] [id number] -2021 [facility] 00:00:00 00:00:00 1103 [facility] 2022-07-27 2022-07-27 OFFICE STLMLC STLMLC [id number] Co mmon 00:00:00 00:00:00 V[facility]IT [facility] ESTAB PT - CHI LEVEL 4 [facility] 2022-06-15 2022-06-15 OFFICE STLMLC STLMLC [id number] Co mmon 00:00:00 00:00:00 [facility] ESTAB PT - CHI LEVEL 4 [facility] 2022-06-12 2022-06-12 CAV Allegra 2.16.840. 2.16.840.1. CLAC [id number] [facility] 20:00:00 21:00:00 [facility] [id number] [facility] [id number] 2022-04-28 2022-04-28 Ambulatory nullFlavo MNA [id number] Memoria 19:00:00 19:00:00 Pre-Reg r Neurology 14 l Lana [facility]our 2022-04-28 2022-04-28 Ambulatory nullFlavo MNA [id number] Memoria 19:00:00 19:00:00 Pre-Reg r Neurology 14 l Lana [place] 2022-04-28 2022-04-28 Outpatient MHIE MHIE [id number] Memoria 14:00:00 14:00:00 14 l [place] 2022-04-28 2022-04-28 [id number] 14:00:00 14:00:00 Jeffrey 14 [place] 2022-04-14 2022-04-14 [place] [id number] [facility] 07:15:00 07:15:00 0715 Medica l Group 2021-12-15 2021-12-15 (TEL) STLMLC STLMLC [id number] Co mmon 00:00:00 00:00:00 [facility] 2021-12-08 2021-12-08 (TEL) STLMLC STLMLC [id number] Co mmon 00:00:00 00:00:00 [facility] 2021-11-29 2021-11-29 OL DIG E/M STLMLC STLMLC [id number] Common 00:00:00 00:00:00 SVC 5-10 Spiri t [facility] 2021-11-21 2021-11-21 (TEL) STLMLC STLMLC [id number] Co mmon 00:00:00 00:00:00 [facility] 2021-11-02 2021-11-03 Outpatient nullFlavo MNA [id number] Memoria 19:30:00 05:59:59 r Neurology 13 l [facility] 2021-11-02 2021-11-03 Outpatient nullFlavo MNA [id number] Memoria 19:30:00 05:59:59 r Neurology 13 lavelle Carter 2021-11-02 2021-11-02 Outpatient [facility] [id number] 13:30:00 23:59:59 Jeffrey Marcie Shafer 2021-11-02 2021-11-02 Ambulatory nullFlavo MNA [id number] Memoria 19:00:00 19:00:00 Pre-Reg r Neurology 12 l Lana Carter 2021-11-02 2021-11-02 Ambulatory nullFlavo MNA [id number] Memoria 19:00:00 19:00:00 Pre-Reg r Neurology 12 l Lana Carter 2021-11-02 2021-11-02 Outpatient MHIE MHIE [id number] Memoria 13:30:00 13:30:00 13 lavelle Carter 2021-11-02 2021-11-02 Outpatient MHIE IE [id number] Memoria 13:00:00 13:00:00 12 lavelle Carter 2021-11-02 2021-11-02 Outpatient Jose [facility] [id number] 13:00:00 13:00:00 Jeffrey Ventura Shafer 2021-10-26 2021-10-26 (TEL) STLC STLC [id number] Co mmon 00:00:00 00:00:00 [facility] - CHI [facility] 2021-10-17 2021-10-17 [facility] [id number] Co mmon 00:00:00 00:00:00 V[facility]IT [facility] ESTAB PT - CHI LEVEL 4 [facility] 2021-10-03 2021-10-03 CAV Allegra 2.16.840. 2.16.840.1. CLAC [id number] [facility] 20:00:00 21:30:00 Valentín [id number] RZ Medical [id number] 2021-08-29 2021-08-29 [place] [id number] [facility] 12:42:00 12:42:00 1129 Medica l Group 2021-06-28 2021-06-28 Ambulatory nullFlavo MNA [id number] Memoria 19:00:00 19:00:00 Pre-Reg r Neurology 11 l Lana Carter 2021-06-28 2021-06-28 Ambulatory nullFlavo MNA [id number] Memoria 19:00:00 19:00:00 Pre-Reg r Neurology 11 l Lana Carter 2021-06-28 2021-06-28 Outpatient MHIE IE [id number] Memoria 14:00:00 14:00:00 11 l Raul 2021-06-28 2021-06-28 Outpatient [facility] [id number] 14:00:00 14:00:00 Jeffrey Rob Shafer 2021-05-16 2021-05-16 Outpatient STLMLC STLMLC [id number] Common 00:00:00 00:00:00 [facility] 2021-05-10 2021-05-10 Outpatient STLMLC STLMLC [id number] Common 00:00:00 00:00:00 [facility] 2021-04-12 2021-04-12 Outpatient STLMLC STLMLC [id number] Common 00:00:00 00:00:00 [facility] 2021-03-28 2021-03-28 Outpatient Olivia-Mbayo VFP VFP [id number] [facility] 05:32:00 05:32:00 _A_AH [id number] Family Practic e 2021-03-07 2021-03-07 Outpatient STLMLC STLMLC [id number] Common 00:00:00 00:00:00 [facility] 2021-02-08 2021-02-08 Outpatient STLMLC STLMLC [id number] Common 00:00:00 00:00:00 [facility] 2021-01-28 2021-01-30 Outside nullFlavo MNA [id number] Memoria 14:05:24 04:59:59 Medical r Neurology 01 l Records Lana Carter 2021-01-28 2021-01-30 Outside nullFlavo MNA [id number] Memoria 14:05:24 04:59:59 Medical r Neurology 01 l Records Lana Carter 2021-01-28 2021-01-29 Outpatient MHMISCHER MHMISCHER [id number] 09:05:24 23:59:59 2021-01-18 2021-01-18 Outpatient Renetta [facility] [address] [place] [address] 01:43:00 01:43:00 _A_AH [id number] Family Practic e 2021-01-14 2021-01-14 [place] [id number] [facility] 05:20:00 05:20:00 0416 Medica l Group 2021-01-14 2021-01-14 Caitlyn ARYAN MA - [id number] D evoted 00:00:00 00:00:00 Radha Choudhurya l Jerez, 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 2021-01-14 2021-01-14 Outpatient Jerez, DMG SHIRA [id number] 00:00:00 00:00:00 Caitlyn [id number] Radha [id number] 2021-01-13 2021-01-13 [place] [id number] [facility] 05:35:00 05:35:00 0415 Medica l Group 2021-01-12 2021-01-12 Outpatient Canales_M DMG DMG [id number] [facility] 04:16:00 04:16:00 0414 Medica l Group 2020-12-24 2020-12-25 Outpatient nullFlavo MNA [id number] Memoria 18:45:00 04:59:59 r Neurology 10 l Lana Cunhaann 2020-12-24 2020-12-25 Outpatient nullFlavo MNA [id number] Memoria 18:45:00 04:59:59 r Neurology 10 l Wakealbin Cunhaann 2020-12-24 2020-12-24 Outpatient GOSIA GarciaSCHANJEL MHMISCHANJEL [id number] 13:45:00 23:59:59 Jeffrey Lupis Shafer 2020-12-24 2020-12-24 Outpatient MHIE PRUDENCIOIE [id number] Memoria 13:45:00 13:45:00 10 l Montour 2020-12-09 2020-12-09 Outpatient STLMLC STLMLC [id number] Common 00:00:00 00:00:00 [facility] 2020-12-09 2020-12-09 Outpatient STLMLC STLMLC [id number] Common 00:00:00 00:00:00 [facility] 2020-11-30 2020-11-30 Outpatient STLMLC STLMLC [id number] Common 00:00:00 00:00:00 [facility] 2020-11-23 2020-11-25 Outside nullFlavo MNA [id number] Memoria 17:49:36 05:59:59 Medical r Neurology 00 l Records [facility] 2020-11-23 2020-11-25 Outside nullFlavo MNA [id number] Memoria 17:49:36 05:59:59 Medical r Neurology 00 l Records [facility] 2020-11-23 2020-11-24 Outpatient MHMISCHER MHMISCHER [id number] 11:49:36 23:59:59 00 2020-10-28 2020-10-28 Outpatient STLMLC STLMLC [id number] Common 00:00:00 00:00:00 [facility] 2020-10-25 2020-10-25 Outpatient STLMLC STLMLC [id number] Common 00:00:00 00:00:00 [facility] 2020-10-11 2020-10-11 Ambulatory nullFlavo MNA [id number] Memoria 21:15:00 21:15:00 Pre-Reg r Neurology 09 l [facility] 2020-10-11 2020-10-11 Ambulatory nullFlavo MNA [id number] Memoria 21:15:00 21:15:00 Pre-Reg r Neurology 09 l [facility] 2020-10-11 2020-10-11 Outpatient MHIE FRANCESCO [id number] Memoria 15:15:00 15:15:00 09 l [place] 2020-10-11 2020-10-11 [id number] 15:15:00 15:15:00 Jeffrey 09 [place] 2020-09-29 2020-09-29 Outpatient STLMLC STLMLC [id number] Common 00:00:00 00:00:00 [facility] - [facility]I [facility] 2020-09-05 2020-09-06 Observatio nullFlavo [facility] [id number] Memoria 02:36:00 21:43:00 n ekta Carter 40 [facility] 2020-09-05 2020-09-06 Observatio nullFlavo [facility] [id number] Memoria 02:36:00 21:43:00 n ekta Carter 40 [facility] 2020-09-04 2020-09-06 Outpatient Nae [facility] [id number] 20:36:00 15:43:00 Vincent 40 Chu 2020-09-04 2020-09-04 Outpatient Nae [facility] [id number] 20:36:00 20:36:00 Vincent 40 Chu 2020-08-24 2020-08-24 Ambulatory nullFlavo MNA [id number] Memoria 19:15:00 19:15:00 Pre-Reg r Neurology 08 l [facility] 2020-08-24 2020-08-24 Ambulatory nullFlavo MNA [id number] Memoria 19:15:00 19:15:00 Pre-Reg r Neurology 08 l Wake [facility] 2020-08-24 2020-08-24 Outpatient MHIE IE [id number] Memoria 13:15:00 13:15:00 08 l [place] 2020-08-24 2020-08-24 Outpatient YURIDIA [facility] [id number] 13:15:00 13:15:00 Jeffrey 08 [place] 2020-06-28 2020-06-28 Emergency Blairs, [facility] [id number] [facility] 11:51:00 15:02:00 Sariah Amin [id number] i ty of Miguel 4.2.7.2.686 [facility] [id number] [facility] 084 [place] 2020-06-28 2020-06-28 Emergency Miller, [facility] [id number] 11:51:00 15:02:00 Sariah Amin [id number] [place] 4.2.7.2.686 [facility] [id number] 2020-05-25 2020-05-26 Outpatient nullFlavo MNA [id number] Memoria 18:45:00 04:59:59 r Neurology 07 l [facility] 2020-05-25 2020-05-26 Outpatient nullFlavo MNA [id number] Memoria 18:45:00 04:59:59 r Neurology 07 l [facility] 2020-05-25 2020-05-25 [facility] [id number] 13:45:00 23:59:59 [place] 07 [place] 2020-05-25 2020-05-25 Outpatient MHIE MHIE [id number] Memoria 13:45:00 13:45:00 07 l [place] 2020-03-30 2020-03-30 Ambulatory nullFlavo MNA [id number] [facility] 20:15:00 20:15:00 Pre-Reg r Neurology 05 l [facility] 2020-03-30 2020-03-30 Ambulatory nullFlavo MNA [id number] Memoria 20:15:00 20:15:00 Pre-Reg r Neurology 05 l [facility] 2020-03-30 2020-03-30 Outpatient MHIE MHIE [id number] Memoria 15:15:00 15:15:00 05 l [place] 2020-03-30 2020-03-30 [id number] 15:15:00 15:15:00 Jeffrey 05 Holils 2020-03-24 2020-03-25 Outpatient nullFlavo MNA [id number] Memoria 14:00:00 04:59:59 r Neurology 06 l [facility] 2020-03-24 2020-03-25 Outpatient nullFlavo MNA [id number] Memoria 14:00:00 04:59:59 r Neurology 06 l [facility] 2020-03-24 2020-03-24 Outpatient PRUDENCIO GarciaOHSCHER MHMISCHER [id number] 09:00:00 23:59:59 Jeffrey 06 Hollis 2020-03-24 2020-03-24 Outpatient MHIE MHIE [id number] Memoria 09:00:00 09:00:00 06 l Raul 2020-02-19 2020-02-19 Emergency Yocasta, [facility] [id number] Univers 14:18:56 16:04:00 Maria Luisa Amni 350.1.13.10 ity [facility] [place] 4.2.7.2.686 [facility] [id number] [address] 2020-02-19 2020-02-19 Emergency Drever, [facility] [id number] 14:18:56 16:04:00 Maria Luisa Amin [id number] [place] [address] [place] [address] [id number] [facility] 2019-12-11 2019-12-11 Outpatient Olivia-Mbayo VFP VFP [address] [place] [address] 06:48:00 06:48:00 _A_AH [id number] [facility] Practic e 2019-12-11 2019-12-11 Outpatient Olivia-Mbayo VFP VFP [address] [place] [address] 06:48:00 06:48:00 _A_AH 64824 Family Practic e 2019-12-09 2019-12-10 Emergency [facility] [id number] Univers 21:28:34 00:05:00 Timi Amin 350.1.13.10 i ty [facility] 4.2.7.[address] [place] [phone] 2019-12-09 2019-12-10 Emergency X [facility] ERT [id number] Univers 21:28:34 00:05:00 TIMI dominique [facility] 2019-12-09 2019-12-10 Emergency [facility] [id number] 21:28:34 00:05:00 Timi Amin 350.1.13.[address] [place] [address] [place] [address] [id number] [facility] 2019-11-19 2019-11-19 Outpatient Olivia-Mbayo VFP VFP [address] [place] [address] 07:16:00 07:16:00 _A_AH 35346 Family Practic e 2019-09-16 2019-09-16 Ambulatory nullFlavo MNA [id number] Memoria 21:00:00 21:00:00 Pre-Reg r Neurology 04 l Lana Carter 2019-09-16 2019-09-16 Ambulatory nullFlavo MNA [id number] Memoria 21:00:00 21:00:00 Pre-Reg r Neurology 04 l Lana Carter 2019-09-16 2019-09-16 Outpatient MHIE MHIE [id number] Memoria 15:00:00 15:00:00 04 lavelle Carter 2019-09-16 2019-09-16 [facility] [id number] 15:00:00 15:00:00 Jeffrey 04 [place] 2019-07-24 2019-07-25 Outpatient nullFlavo MNA [id number] Memoria 19:15:00 04:59:59 r Neurology 03 lavelle Carter 2019-07-24 2019-07-25 Outpatient nullFlavo MNA [id number] Memoria 19:15:00 04:59:59 r Neurology 03 lavelle Carter 2019-07-24 2019-07-24 [facility] [id number] 14:15:00 23:59:59 Jeffrey 03 [place] 2019-07-24 2019-07-24 Outpatient MHIE MHIE [id number] Memoria 14:15:00 14:15:00 03 lavelle Carter 2019-05-21 2019-05-22 Outpatient nullFlavo MNA [id number] Memoria 19:30:00 04:59:59 r Neurology 02 lavelle Carter 2019-05-21 2019-05-22 Outpatient nullFlavo MNA [id number] Memoria 19:30:00 04:59:59 r Neurology 02 lavelle Carter 2019-05-21 2019-05-21 Out[facility] [id number] 14:30:00 23:59:59 Jeffrey 02 [place] 2019-05-21 2019-05-21 Outpatient MHIE MHIE [id number] Memoria 14:30:00 14:30:00 02 lavelle Carter 2019-03-21 2019-03-22 Outpatient nullFlavo MNA [id number] Memoria 19:30:00 04:59:59 r Neurology 01 lavlele Carter 2019-03-21 2019-03-22 Outpatient nullFlavo MNA [id number] Memoria 19:30:00 04:59:59 r Neurology 01 l [facility] 2019-03-21 2019-03-21 Outpatient [facility]IDIA [facility] [id number] 14:30:00 23:59:59 Jeffrey 01 Hollis 2019-03-21 2019-03-21 Outpatient MHIE IE [id number] Memoria 14:30:00 14:30:00 01 lavelle Carter 2019-02-21 2019-02-22 Outpatient nullFlavo MNA [id number] Memoria 20:00:00 04:59:59 r Neurology 00 l [facility] 2019-02-21 2019-02-22 Outpatient nullFlavo MNA [id number] Memoria 20:00:00 04:59:59 r Neurology 00 l [facility] 2019-02-21 2019-02-21 [id number] 15:00:00 23:59:59 Jeffrey 00 Hollis Results Test Description Test Time Test Comments Results Result Comments Source CHEMISTRY 2022-11-22 13:17:00 Test Item Value Reference Range Interpretation Comme nts Glucose Lvl (test code = Glucose Lvl) 65 70-99 [facility]rgnrfaUDTYMSTLN9446-98-67 13:17:00 Test Item Value Reference Range Interpretation Comments BUN (test code = BUN) 39 7-22 [facility] PasoPywftnzMIBROUOPI6594-40-68 13:17:00 Test Item Value Reference Range Interpretation Comments Creatinine Lvl (test code = Creatinine 2.03 0.50-1.40 Lvl) [facility] PasoIuablpkXQZLJVJPB3764-54-97 13:17:00 Test Item Value Reference Range Interpretation Comments Sodium Lvl (test code = Sodium Lvl) 139 135-145 [facility] PasoJxwwwerPZIPHZTSM7205-37-71 13:17:00 Test Item Value Reference Range Interpretation Comments Potassium Lvl (test code = Potassium 4.7 3.5-5.1 Lvl) [facility] PasoUnkmufqVHNHPSFXT8863-23-01 13:17:00 Test Item Value Reference Range Interpretation Comments Chloride Lvl (test code = Chloride Lvl) 107 95-109 [facility] PasoYucwexbNSZQAGVPC1633-82-49 13:17:00 Test Item Value Reference Range Interpretation Comments CO2 (test code = CO2) 26 24-32 [place] 895113-02-22 13:17:00 Test Item Value Reference Range Interpretation Comments Calcium Lvl (test code = Calcium Lvl) 8.1 8.5-10.5 [facility] PasoAlvnghqNMPIXGBPK6898-27-81 13:17:00 Test Item Value Reference Range Interpretation Comments AGAP (test code = AGAP) 10.7 10.0-20.0 [facility] PasoXomsxopNNYEZONXR8421-23-17 13:17:00 Test Item Value Reference Range Interpretation Comments eGFR (test code = eGFR) 24 [facility] PasoWqemgsyJJDMICMQZ3523-14-52 13:17:00 Test Item Value Reference Range Interpretation Comments Ca Ion WB (test code = Ca Ion WB) 1.06 1.05-1.25 [facility] PasoIkvygjcTNDNYTADV6494-70-53 13:17:00 Test Item Value Reference Range Interpretation Comments Ca Ion at pH 7.4 WB (test code = Ca Ion 1.03 1.05-1.25 at pH 7.4 WB) [facility] PasoRbxfbzmQJOMHTIXV4640-06-77 13:17:00 Test Item Value Reference Range Interpretation Comments Magnesium Lvl (test code = Magnesium 2.7 1.8-2.4 Lvl) [facility] PasoGkwpwmzKCMYZFVZK7957-25-80 13:17:00 Test Item Value Reference Range Interpretation Comments Phosphorus (test code = Phosphorus) 3.9 2.5-4.5 [facility]rlacluUUHPRWNVMY6440-56-18 13:17:00 Test Item Value Reference Range Interpretation Comments Segs (test code = Segs) 54.4 45.0-75.0 [place] 454633-02-22 13:17:00 Test Item Value Reference Range Interpretation Comments Lymphocytes (test code = Lymphocytes) 29.3 20.0-40.0 [place] [address]-02-22 13:17:00 Test Item Value Reference Range Interpretation Comments Monocytes (test code = Monocytes) 10.5 2.0-12.0 [place] 454633-02-22 13:17:00 Test Item Value Reference Range Interpretation Comments Eosinophils (test code = 5.0 See_Comment [A utomated message] The Eosinophils) system which ge nerated this result tra nsmitted reference range : <=4.0. The reference r christiano was not used to int erpret this result as normal/abnormal . [place] 454633-02-22 13:17:00 Test Item Value Reference Range Interpretation Comments Basophils (test code = 0.8 See_Comment [Aut omated message] The Basophils) system which ge nerated this result tra nsmitted reference range : <=1.0. The reference r christiano was not used to int erpret this result as normal/abnormal . [place] 454633-02-22 13:17:00 Test Item Value Reference Range Interpretation Comments Neutrophils # (test code = Neutrophils 4.1 1.5-8.1 #) [place] 454633-02-22 13:17:00 Test Item Value Reference Range Interpretation Comments Lymphocytes # (test code = Lymphocytes 2.2 1.0-5.5 #) [place] 454633-02-22 13:17:00 Test Item Value Reference Range Interpretation Comments Monocytes # (test code 0.8 See_Comment [Aut omated message] The = Monocytes #) system which generated this result tra nsmitted reference range : <=0.8. The reference r christiano was not used to int erpret this result as normal/abnormal . [facility]QohweotQMZGVVIQWU2466-50-89 13:17:00 Test Item Value Reference Range Interpretation Comments Eosinophils # (test code 0.4 See_Comment [A utomated message] The = Eosinophils #) system whic h generated this result tra nsmitted reference range : <=0.5. The reference r christiano was not used to int erpret this result as normal/abnormal . [place] 454633-02-22 13:17:00 Test Item Value Reference Range Interpretation Comments Basophils # (test code 0.1 See_Comment [Aut omated message] The = Basophils #) system which generated this result tra nsmitted reference range : <=0.2. The reference r christiano was not used to int erpret this result as normal/abnormal . [place] 454633-02-22 13:17:00 Test Item Value Reference Range Interpretation Comments WBC (test code = WBC) 7.5 3.7-10.4 [place] 454633-02-22 13:17:00 Test Item Value Reference Range Interpretation Comments RBC (test code = RBC) 3.30 4.20-5.40 [place] [address]-02-22 13:17:00 Test Item Value Reference Range Interpretation Comments Hgb (test code = Hgb) 9.9 12.0-16.0 [facility]XhqdwkjVOAGBCPMGW9235-30-68 13:17:00 Test Item Value Reference Range Interpretation Comments Hct (test code = Hct) 30.3 36.0-48.0 [facility] HospitalBribiuyXCCGMZOFXY0581-73-63 13:17:00 Test Item Value Reference Range Interpretation Comments MCV (test code = MCV) 91.8 80.0-98.0 [place] 454633-02-22 13:17:00 Test Item Value Reference Range Interpretation Comments MCH (test code = MCH) 30.0 pg 27.0-31.0 [facility]OqstvylUEQYBDWEST2075-32-52 13:17:00 Test Item Value Reference Range Interpretation Comments MCHC (test code = MCHC) 32.7 32.0-36.0 [facility] HospitalTcegiklEQRFYQSACH1142-94-52 13:17:00 Test Item Value Reference Range Interpretation Comments RDW (test code = RDW) 14.4 11.5-14.5 [facility] HospitalGnxqvkrEIXSXFBMBN9001-31-44 13:17:00 Test Item Value Reference Range Interpretation Comments Platelet (test code = Platelet) 136 133-450 [facility] HospitalUahwdpgWEOKJBXYBU6111-08-26 13:17:00 Test Item Value Reference Range Interpretation Comments MPV (test code = MPV) 8.7 7.4-10.4 [facility] PasoDjdwjgmNCPJVKROO7142-04-47 13:17:00 Test Item Value Reference Range Interpretation Comments Glucose Lvl (test code = Glucose Lvl) 65 70-99 [facility] PasoRzddldxMCJUBOTKK4268-37-59 13:17:00 Test Item Value Reference Range Interpretation Comments BUN (test code = BUN) 39 7-22 [facility] PasoLtebbdsZLLCOWENH7689-15-51 13:17:00 Test Item Value Reference Range Interpretation Comments Creatinine Lvl (test code = Creatinine 2.03 0.50-1.40 Lvl) [facility] PasoYygxfuxTZPNUDBJC0333-09-59 13:17:00 Test Item Value Reference Range Interpretation Comments Sodium Lvl (test code = Sodium Lvl) 139 135-145 [facility] PasoKxoyelaMUOYLPDNR0573-18-21 13:17:00 Test Item Value Reference Range Interpretation Comments Potassium Lvl (test code = Potassium 4.7 3.5-5.1 Lvl) [facility] PasoYiyhuiwMDXARIBXP6849-45-16 13:17:00 Test Item Value Reference Range Interpretation Comments Chloride Lvl (test code = Chloride Lvl) 107 95-109 [facility] PasoYqtdannSPESNXYHW1048-42-37 13:17:00 Test Item Value Reference Range Interpretation Comments CO2 (test code = CO2) 26 24-32 [facility] PasoAxktapaFGKOLBHUC0917-07-17 13:17:00 Test Item Value Reference Range Interpretation Comments Calcium Lvl (test code = Calcium Lvl) 8.1 8.5-10.5 [facility] PasoQstpywpHDAVEGUSK0414-87-90 13:17:00 Test Item Value Reference Range Interpretation Comments AGAP (test code = AGAP) 10.7 10.0-20.0 [facility] PasoGryjluwNSRCGUARE0917-25-91 13:17:00 Test Item Value Reference Range Interpretation Comments eGFR (test code = eGFR) 24 [facility] PasoTxsmjlbDZTPUNBZN0219-85-24 13:17:00 Test Item Value Reference Range Interpretation Comments Ca Ion WB (test code = Ca Ion WB) 1.06 1.05-1.25 [facility] PasoBquynlwWHMQTMSKD3554-51-32 13:17:00 Test Item Value Reference Range Interpretation Comments Ca Ion at pH 7.4 WB (test code = Ca Ion 1.03 1.05-1.25 at pH 7.4 WB) [facility] PasoPtzvvcfXGUSAQVQM1898-73-97 13:17:00 Test Item Value Reference Range Interpretation Comments Magnesium Lvl (test code = Magnesium 2.7 1.8-2.4 Lvl) [facility] PasoKkyeouiIMVSKQFGK0700-01-92 13:17:00 Test Item Value Reference Range Interpretation Comments Phosphorus (test code = Phosphorus) 3.9 2.5-4.5 [facility] HospitalZziutzmEBPZDBDHKS0182-45-92 13:17:00 Test Item Value Reference Range Interpretation Comments Segs (test code = Segs) 54.4 45.0-75.0 [place] 454633-02-22 13:17:00 Test Item Value Reference Range Interpretation Comments Lymphocytes (test code = Lymphocytes) 29.3 20.0-40.0 [place] 454633-02-22 13:17:00 Test Item Value Reference Range Interpretation Comments Monocytes (test code = Monocytes) 10.5 2.0-12.0 [facility] HospitalVmleckuFKHUPQMZTT7004-35-28 13:17:00 Test Item Value Reference Range Interpretation Comments Eosinophils (test code = 5.0 See_Comment [A utomated message] The Eosinophils) system which ge nerated this result tra nsmitted reference range : <=4.0. The reference r christiano was not used to int erpret this result as normal/abnormal . [facility] HospitalXchqimqDDMTHOKBVV0038-57-25 13:17:00 Test Item Value Reference Range Interpretation Comments Basophils (test code = 0.8 See_Comment [Aut omated message] The Basophils) system which ge nerated this result tra nsmitted reference range : <=1.0. The reference r christiano was not used to int erpret this result as normal/abnormal . [facility] HospitalXbczgoiGXXJSHYPYI1962-91-55 13:17:00 Test Item Value Reference Range Interpretation Comments Neutrophils # (test code = Neutrophils 4.1 1.5-8.1 #) [facility] HospitalDxdkztrUQKAVFPZVZ6220-14-36 13:17:00 Test Item Value Reference Range Interpretation Comments Lymphocytes # (test code = Lymphocytes 2.2 1.0-5.5 #) [facility] HospitalJioznmsIXWYQPCXWJ4539-75-18 13:17:00 Test Item Value Reference Range Interpretation Comments Monocytes # (test code 0.8 See_Comment [Aut omated message] The = Monocytes #) system which generated this result tra nsmitted reference range : <=0.8. The reference r christiano was not used to int erpret this result as normal/abnormal . [facility] HospitalYgvjccsSSKFSPXWIG2129-79-65 13:17:00 Test Item Value Reference Range Interpretation Comments Eosinophils # (test code 0.4 See_Comment [A utomated message] The = Eosinophils #) system whic h generated this result tra nsmitted reference range : <=0.5. The reference r christiano was not used to int erpret this result as normal/abnormal . [facility] HospitalVnsfymaYDOLSQLNKT8833-12-12 13:17:00 Test Item Value Reference Range Interpretation Comments Basophils # (test code 0.1 See_Comment [Aut omated message] The = Basophils #) system which generated this result tra nsmitted reference range : <=0.2. The reference r christiano was not used to int erpret this result as normal/abnormal . [facility] HospitalXxnpabfBRJZJVGOJS6099-67-10 13:17:00 Test Item Value Reference Range Interpretation Comments WBC (test code = WBC) 7.5 3.7-10.4 [facility] HospitalNhcqlevGSYZYEWIPH3151-89-52 13:17:00 Test Item Value Reference Range Interpretation Comments RBC (test code = RBC) 3.30 4.20-5.40 [place] 454633-02-22 13:17:00 Test Item Value Reference Range Interpretation Comments Hgb (test code = Hgb) 9.9 12.0-16.0 [facility] HospitalMwncipgPSQEQMRTJX4346-20-33 13:17:00 Test Item Value Reference Range Interpretation Comments Hct (test code = Hct) 30.3 36.0-48.0 [place] 454633-02-22 13:17:00 Test Item Value Reference Range Interpretation Comments MCV (test code = MCV) 91.8 80.0-98.0 [place] 454633-02-22 13:17:00 Test Item Value Reference Range Interpretation Comments MCH (test code = MCH) 30.0 pg 27.0-31.0 [facility] HospitalAwvwwtuIGPFQTRTNS0422-80-54 13:17:00 Test Item Value Reference Range Interpretation Comments MCHC (test code = MCHC) 32.7 32.0-36.0 [facility] HospitalSzswjtjDQZULGOIIH5270-22-66 13:17:00 Test Item Value Reference Range Interpretation Comments RDW (test code = RDW) 14.4 11.5-14.5 [facility] HospitalVoyhbzlHLPMTRUWZH5436-11-53 13:17:00 Test Item Value Reference Range Interpretation Comments Platelet (test code = Platelet) 136 133-450 [facility] HospitalTbodcvaOCPKIMEGGV5848-93-38 13:17:00 Test Item Value Reference Range Interpretation Comments MPV (test code = MPV) 8.7 7.4-10.4 [place] 895113-02-21 15:39:00 Test Item Value Reference Range Interpretation Comments U Amph Scr (test code Negative *NA*(11/21/22 = U Amph Scr) 9:39 AM) [facility] PasoVmpjcjbKEJKGYSQL7766-57-13 15:39:00 Test Item Value Reference Range Interpretation Comments U Analilia Scr (test code Positive *ABN*(11/21/22 = U Analilia Scr) 9:39 AM) [facility] FlhuguzUFKMTCNZK6316-27-92 15:39:00 Test Item Value Reference Range Interpretation Comments U Benzodiaz Scr (test Negative *NA*(11/21/22 code = U Benzodiaz Scr) 9:39 AM) [facility] HkmtmmeHPRFYFXOY6571-51-90 15:39:00 Test Item Value Reference Range Interpretation Comments U Cocaine Scr (test Negative *NA*(11/21/22 code = U Cocaine Scr) 9:39 AM) [facility] TibistwONUFYBPER9948-48-31 15:39:00 Test Item Value Reference Range Interpretation Comments U Cannab Scr (test Negative *NA*(11/21/22 code = U Cannab Scr) 9:39 AM) [facility] YezdyvfBNTGXMEHO3144-97-22 15:39:00 Test Item Value Reference Range Interpretation Comments U Opiate Scr (test Positive *ABN*(11/21/22 code = U Opiate Scr) 9:39 AM) [facility] PtzkhltKZNTYMJWN0265-53-40 15:39:00 Test Item Value Reference Range Interpretation Comments U Phencyclidine Scr (test Negative code = U Phencyclidine *NA*(11/21/22 9:39 Scr) AM) [facility] GdctspfKQZKIHLYP7880-90-21 15:39:00 Test Item Value Reference Range Interpretation Comments UDS Note (test code = See Note (11/21/22 9:39 UDS Note) AM) [facility] DhlfmfuPSJFCHDKZW4705-09-33 15:39:00 Test Item Value Reference Range Interpretation Comments Coronavirus (COVID-19) Not Detected (11/21/22 JONATHAN (test code = 9:39 AM) Coronavirus (COVID-19) JONATHAN) [facility] [id number] 15:39:00 Test Item Value Reference Range Interpretation Comments UA Color (test code = Light Yellow UA Color) *NA*(11/21/22 9:39 AM) [facility] [id number] 15:39:00 Test Item Value Reference Range Interpretation Comments UA Turbidity (test code = Clear (11/21/22 9:39 UA Turbidity) AM) [facility] [id number] 15:39:00 Test Item Value Reference Range Interpretation Comments UA Spec Grav (test code = UA Spec 1.014 1 Grav) [facility] [id number] 15:39:00 Test Item Value Reference Range Interpretation Comments UA pH (test code = UA pH) 6.0 1 5.0-8.0 [facility] AND [id number] 15:39:00 Test Item Value Reference Range Interpretation Comments UA Protein (test code = UA Protein) 30 mg/dL [facility] AND ISEOY8628-36-24 15:39:00 Test Item Value Reference Range Interpretation Comments UA Glucose (test code = UA Negative mg/dL Glucose) [facility] AND [id number] 15:39:00 Test Item Value Reference Range Interpretation Comments UA Ketones (test code = UA Negative mg/dL Ketones) [facility] AND IKGFX3637-98-09 15:39:00 Test Item Value Reference Range Interpretation Comments UA Bili (test code = Negative *NA*(11/21/22 UA Bili) 9:39 AM) [facility] AND PIEPZ4936-11-71 15:39:00 Test Item Value Reference Range Interpretation Comments UA Blood (test code = Negative (11/21/22 9:39 UA Blood) AM) [facility] AND KBZFQ7946-97-39 15:39:00 Test Item Value Reference Range Interpretation Comments UA Urobilinogen (test code = UA no gt 0.1-1.0 Urobilinogen) [facility] AND [id number] 15:39:00 Test Item Value Reference Range Interpretation Comments UA Nitrite (test code Negative (11/21/22 9:39 = UA Nitrite) AM) [facility] AND [id number] 15:39:00 Test Item Value Reference Range Interpretation Comments UA Leuk Est (test Negative (11/21/22 9:39 code = UA Leuk Est) AM) [facility] AND [id number] 15:39:00 Test Item Value Reference Range Interpretation Comments UA Sq Epi (test code = UA Sq Occasional /LPF Epi) [facility] AND [id number] 15:39:00 Test Item Value Reference Range Interpretation Comments UA WBC (test code = no gt See_Comment [Automa sheba message] The UA WBC) system which ge nerated this result transmit sheba reference range : <=5. The reference range was not used to interpr et this result as edy l/abnormal. [facility] AND [id number] 15:39:00 Test Item Value Reference Range Interpretation Comments UA RBC (test code = no gt See_Comment [Automa sheba message] The UA RBC) system which ge nerated this result transmit sheba reference range : <=2. The reference range was not used to interpr et this result as edy l/abnormal. [facility] PasoTbreetuBFSIVDSKC0439-99-23 15:39:00 Test Item Value Reference Range Interpretation Comments U Amph Scr (test code Negative *NA*(11/21/22 = U Amph Scr) 9:39 AM) [facility] PasoFngxzqiKDAVJEFGW6151-32-13 15:39:00 Test Item Value Reference Range Interpretation Comments U Analilia Scr (test code Positive *ABN*(11/21/22 = U Analilia Scr) 9:39 AM) [facility] PasoPyczsimTPGCEBQDC0411-99-45 15:39:00 Test Item Value Reference Range Interpretation Comments U Benzodiaz Scr (test Negative *NA*(11/21/22 code = U Benzodiaz Scr) 9:39 AM) [facility] PasoTypwbviWAFWJQOLY5598-81-50 15:39:00 Test Item Value Reference Range Interpretation Comments U Cocaine Scr (test Negative *NA*(11/21/22 code = U Cocaine Scr) 9:39 AM) [facility] AlmaDydoqcnMDTBCTHTF3794-34-47 15:39:00 Test Item Value Reference Range Interpretation Comments U Cannab Scr (test Negative *NA*(11/21/22 code = U Cannab Scr) 9:39 AM) [facility] AlmaZmiinyfAMVILVDHU1455-00-94 15:39:00 Test Item Value Reference Range Interpretation Comments U Opiate Scr (test Positive *ABN*(11/21/22 code = U Opiate Scr) 9:39 AM) [facility] PasoUwuookvMYZEWMQWS4365-92-49 15:39:00 Test Item Value Reference Range Interpretation Comments U Phencyclidine Scr (test Negative code = U Phencyclidine *NA*(11/21/22 9:39 Scr) AM) [facility] PasoWdupmfbORRBCIEMS3909-70-30 15:39:00 Test Item Value Reference Range Interpretation Comments UDS Note (test code = See Note (11/21/22 9:39 UDS Note) AM) [facility] ChildrenPqdnuszMHNWEEEBOE5805-44-55 15:39:00 Test Item Value Reference Range Interpretation Comments Coronavirus (COVID-19) Not Detected (11/21/22 JONATHAN (test code = 9:39 AM) Coronavirus (COVID-19) JONATHAN) [facility] AND [id number] 15:39:00 Test Item Value Reference Range Interpretation Comments UA Color (test code = Light Yellow UA Color) *NA*(11/21/22 9:39 AM) [facility] AND [id number] 15:39:00 Test Item Value Reference Range Interpretation Comments UA Turbidity (test code = Clear (11/21/22 9:39 UA Turbidity) AM) [facility] AND [id number] 15:39:00 Test Item Value Reference Range Interpretation Comments UA Spec Grav (test code = UA Spec 1.014 1 Grav) [facility] AND [id number] 15:39:00 Test Item Value Reference Range Interpretation Comments UA pH (test code = UA pH) 6.0 1 5.0-8.0 [facility] AND [id number] 15:39:00 Test Item Value Reference Range Interpretation Comments UA Protein (test code = UA Protein) 30 mg/dL [facility] AND [id number] 15:39:00 Test Item Value Reference Range Interpretation Comments UA Glucose (test code = UA Negative mg/dL Glucose) [facility] AND [id number] 15:39:00 Test Item Value Reference Range Interpretation Comments UA Ketones (test code = UA Negative mg/dL Ketones) [facility] AND [id number] 15:39:00 Test Item Value Reference Range Interpretation Comments UA Bili (test code = Negative *NA*(11/21/22 UA Bili) 9:39 AM) [facility] AND [id number] 15:39:00 Test Item Value Reference Range Interpretation Comments UA Blood (test code = Negative (11/21/22 9:39 UA Blood) AM) [facility] AND [id number] 15:39:00 Test Item Value Reference Range Interpretation Comments UA Urobilinogen (test code = UA no gt 0.1-1.0 Urobilinogen) [facility] AND [id number] 15:39:00 Test Item Value Reference Range Interpretation Comments UA Nitrite (test code Negative (11/21/22 9:39 = UA Nitrite) AM) [facility] AND [id number] 15:39:00 Test Item Value Reference Range Interpretation Comments UA Leuk Est (test Negative (11/21/22 9:39 code = UA Leuk Est) AM) [facility] AND [id number] 15:39:00 Test Item Value Reference Range Interpretation Comments UA Sq Epi (test code = UA Sq Occasional /LPF Epi) [facility] AND [id number] 15:39:00 Test Item Value Reference Range Interpretation Comments UA WBC (test code = no gt See_Comment [Automa sheba message] The UA WBC) system which ge nerated this result transmit sheba reference range : <=5. The reference range was not used to interpr et this result as edy l/abnormal. [facility] AND [id number] 15:39:00 Test Item Value Reference Range Interpretation Comments UA RBC (test code = no gt See_Comment [Automa sheba message] The UA RBC) system which ge nerated this result transmit sheba reference range : <=2. The reference range was not used to interpr et this result as edy l/abnormal. [facility] [place] [id number] 12:50:00 Test Item Value Reference Range Interpretation Comments ABO/Rh (test code = ABO/Rh) O POS [facility] [id number] 12:50:00 Test Item Value Reference Range Interpretation Comments Antibody Scrn (test Negative (11/21/22 6:50 code = Antibody Scrn) AM) [facility]EudcbnuNSBEVOQSZ3632-12-28 12:50:00 Test Item Value Reference Range Interpretation Comments Ethanol Lvl (test code = Ethanol Lvl) no gt [facility] PasoWdpkvdjVTSUQOHDA8047-49-50 12:50:00 Test Item Value Reference Range Interpretation Comments Etoh (%) (test code = Etoh (%)) no gt [facility] PasoEslxdxuUEMUGNJEK3857-65-17 12:50:00 Test Item Value Reference Range Interpretation Comments Lactic Acid Lvl (test code = Lactic 0.7 0.5-2.2 Acid Lvl) [facility] P[id number] 12:50:00 Test Item Value Reference Range Interpretation Comments Total Protein (test code = Total 6.1 6.4-8.4 Protein) [facility]wr[facility]casAXLCSYPAE1666-[facility] 12:50:00 Test Item Value Reference Range Interpretation Comments Albumin Lvl (test code = Albumin Lvl) 2.9 3.5-5.0 [facility] PasoFomxwimPLPVKQGVQ8622-36-91 12:50:00 Test Item Value Reference Range Interpretation Comments Globulin (test code = Globulin) 3.2 2.7-4.2 [place] [id number] 12:50:00 Test Item Value Reference Range Interpretation Comments A/G Ratio (test code = A/G Ratio) 0.9 1 0.7-1.6 [place] [address]-02-21 12:50:00 Test Item Value Reference Range Interpretation Comments ALT (test code = ALT) 16 See_Comment [Auto mated message] The system which ge nerated this result transmit sheba reference range : <=65. The reference range was not used to interpr et this result as edy l/abnormal. [facility] HospitalWcglstzLTUFCQJTD8325-36-41 12:50:00 Test Item Value Reference Range Interpretation Comments AST (test code = AST) 15 See_Comment [Auto mated message] The system which ge nerated this result transmit sheba reference range : <=37. The reference range was not used to interpr et this result as edy l/abnormal. [facility] HospitalHpvlibyCGVZNBTPA6330-33-57 12:50:00 Test Item Value Reference Range Interpretation Comments Alk Phos (test code = Alk Phos) 96 39-136 [facility] PasoJwsdrjhNDNGORTLR7076-23-39 12:50:00 Test Item Value Reference Range Interpretation Comments Bili Total (test code = Bili Total) 0.2 0.2-1.3 [place] 895113-02-21 12:50:00 Test Item Value Reference Range Interpretation Comments Bili Direct (test code no gt See_Comment [Aut omated message] The = Bili Direct) system which generated this result tra nsmitted reference range : <=0.3. The reference r christiano was not used to int erpret this result as edy l/abnormal. [facility] HospitalUovoocjFVUFBEWFZ6505-18-98 12:50:00 Test Item Value Reference Range Interpretation Comments Bili Indirect Unable to See_Comment [Automated (test code = Bili Calculate message] T he system Indirect) which generated this result transmitted reference range : <=1.0. The reference range was not used to interpret this result as normal/abnormal . [facility] PasoGgyrxnlGNIQQKCHM1665-43-64 12:50:00 Test Item Value Reference Range Interpretation Comments HS Troponin I (test code = HS Troponin 15 I) [place] 895113-02-21 12:50:00 Test Item Value Reference Range Interpretation Comments pH Justin (test code = pH Justin) 7.35 1 7.28-7.42 [place] [address]-02-21 12:50:00 Test Item Value Reference Range Interpretation Comments pCO2 Justin (test code = pCO2 Justin) 55 38-52 [place] [address]-02-21 12:50:00 Test Item Value Reference Range Interpretation Comments pO2 Justin (test code = pO2 Justin) 43 20-49 [place] [address]-02-21 12:50:00 Test Item Value Reference Range Interpretation Comments HCO3 Justin (test code = HCO3 Justin) 30 22-26 [place] [address]-02-21 12:50:00 Test Item Value Reference Range Interpretation Comments BE Justin (test code = BE Justin) 3 -2-2 [place] 895113-02-21 12:50:00 Test Item Value Reference Range Interpretation Comments O2 Sat Justin (calc) (test code = O2 Sat 75.9 40.0-70.0 Justin (calc)) [place] 895113-02-21 12:50:00 Test Item Value Reference Range Interpretation Comments Temp Justin (test code = Temp Justin) 37.0 [place] 454633-02-21 12:50:00 Test Item Value Reference Range Interpretation Comments ACT (TEG) Rapid (test code = ACT (TEG) 113 s 86-118 Rapid) [place] 454633-02-21 12:50:00 Test Item Value Reference Range Interpretation Comments Split Point Rapid (test code = Split 0.6 min Point Rapid) [place] 454633-02-21 12:50:00 Test Item Value Reference Range Interpretation Comments R-time Rapid (test code = R-time 0.7 min 0.4-0.7 Rapid) [place] 454633-02-21 12:50:00 Test Item Value Reference Range Interpretation Comments K-time Rapid (test code = K-time 1.1 min 0.6-2.3 Rapid) [facility] ChildrenYmskoswQIDIHGAVNE9732-13-59 12:50:00 Test Item Value Reference Range Interpretation Comments Angle Rapid (test code = Angle 78 degrees 64-80 Rapid) [facility]qagzprNBGOGLKSZA9721-27-66 12:50:00 Test Item Value Reference Range Interpretation Comments Max Amplitude Rapid (test code = Max 65 mm 52-71 Amplitude Rapid) [facility] HospitalTlteqihFSZYWAPUEZ3172-64-03 12:50:00 Test Item Value Reference Range Interpretation Comments G-value Rapid (test code = G-value 9.2 5.0-11.6 Rapid) [facility] HospitalLlaamjqKVRUTCPNEL1090-38-72 12:50:00 Test Item Value Reference Range Interpretation Comments Estimated % Lysis Rapid 0.0 See_Comment [Au tomated message] The (test code = Estimated syste m which generated % Lysis Rapid) this result t ransmitted reference range : <=7.5. The reference r christiano was not used to int erpret this result as normal/abnormal . [facility] ChildrenObbxdjgWPAQWKJYYS3520-68-59 12:50:00 Test Item Value Reference Range Interpretation Comments Plt Morph (test code = See Note 1(11/21/22 Plt Morph) 6:50 AM) [facility] ChildrenBohyjevXICCCYNLDL6820-45-03 12:50:00 Test Item Value Reference Range Interpretation Comments Stomatocyte (test code = Stomatocyte) slight [facility]PreApp[facility] [place] [id number] 12:50:00 Test Item Value Reference Range Interpretation Comments ABO/Rh (test code = ABO/Rh) O POS [facility] [employer] [id number] 12:50:00 Test Item Value Reference Range Interpretation Comments Antibody Scrn (test Negative (11/21/22 6:50 code = Antibody Scrn) AM) [facility] ChildrenXrwowbuXRGKATGHC3283-91-25 12:50:00 Test Item Value Reference Range Interpretation Comments Ethanol Lvl (test code = Ethanol Lvl) no gt [facility] PasoFzlhdoiPTIGTUZRK0648-21-54 12:50:00 Test Item Value Reference Range Interpretation Comments Etoh (%) (test code = Etoh (%)) no gt [facility] ChildrenHbsgytlPSEIVMOHO4717-46-78 12:50:00 Test Item Value Reference Range Interpretation Comments Lactic Acid Lvl (test code = Lactic 0.7 0.5-2.2 Acid Lvl) [facility] PasoVqpwpldSBVDGICXD8179-71-38 12:50:00 Test Item Value Reference Range Interpretation Comments Total Protein (test code = Total 6.1 6.4-8.4 Protein) [facility] PasoQubzlpqZTETSSSHY4453-18-08 12:50:00 Test Item Value Reference Range Interpretation Comments Albumin Lvl (test code = Albumin Lvl) 2.9 3.5-5.0 [place] 895113-02-21 12:50:00 Test Item Value Reference Range Interpretation Comments Globulin (test code = Globulin) 3.2 2.7-4.2 [place] 895113-02-21 12:50:00 Test Item Value Reference Range Interpretation Comments A/G Ratio (test code = A/G Ratio) 0.9 1 0.7-1.6 [place] 895113-02-21 12:50:00 Test Item Value Reference Range Interpretation Comments ALT (test code = ALT) 16 See_Comment [Auto mated message] The system which ge nerated this result transmit sheba reference range : <=65. The reference range was not used to interpr et this result as edy l/abnormal. [facility] PasoWjhlnnaBZEPETCEQ9242-97-32 12:50:00 Test Item Value Reference Range Interpretation Comments AST (test code = AST) 15 See_Comment [Auto mated message] The system which ge nerated this result transmit sheba reference range : <=37. The reference range was not used to interpr et this result as edy l/abnormal. [facility] PasoJifnhrzWGWJLGPWP1553-90-02 12:50:00 Test Item Value Reference Range Interpretation Comments Alk Phos (test code = Alk Phos) 96 39-136 [place] 895113-02-21 12:50:00 Test Item Value Reference Range Interpretation Comments Bili Total (test code = Bili Total) 0.2 0.2-1.3 [place] 895113-02-21 12:50:00 Test Item Value Reference Range Interpretation Comments Bili Direct (test code no gt See_Comment [Aut omated message] The = Bili Direct) system which generated this result tra nsmitted reference range : <=0.3. The reference r christiano was not used to int erpret this result as edy l/abnormal. [facility] PasoKoqlrffWCJMFHYNL1162-10-76 12:50:00 Test Item Value Reference Range Interpretation Comments Bili Indirect Unable to See_Comment [Automated (test code = Bili Calculate message] T he system Indirect) which generated this result transmitted reference range : <=1.0. The reference range was not used to interpret this result as normal/abnormal . [facility] PasoNpnospcGURKFVVEY1220-56-12 12:50:00 Test Item Value Reference Range Interpretation Comments HS Troponin I (test code = HS Troponin 15 I) [facility] PasoOfifeumCDOGLNRPW5269-94-94 12:50:00 Test Item Value Reference Range Interpretation Comments pH Justin (test code = pH Justin) 7.35 1 7.28-7.42 [place] 895113-02-21 12:50:00 Test Item Value Reference Range Interpretation Comments pCO2 Justin (test code = pCO2 Justin) 55 38-52 [place] 895113-02-21 12:50:00 Test Item Value Reference Range Interpretation Comments pO2 Justin (test code = pO2 Justin) 43 20-49 [place] 895113-02-21 12:50:00 Test Item Value Reference Range Interpretation Comments HCO3 Justin (test code = HCO3 Justin) 30 22-26 [place] 895113-02-21 12:50:00 Test Item Value Reference Range Interpretation Comments BE Justin (test code = BE Justin) 3 -2-2 [place] 895113-02-21 12:50:00 Test Item Value Reference Range Interpretation Comments O2 Sat Justin (calc) (test code = O2 Sat 75.9 40.0-70.0 Justin (calc)) [facility] PasoMykoswuIWVQGZXVS1088-97-48 12:50:00 Test Item Value Reference Range Interpretation Comments Temp Justin (test code = Temp Justin) 37.0 [place] 454633-02-21 12:50:00 Test Item Value Reference Range Interpretation Comments ACT (TEG) Rapid (test code = ACT (TEG) 113 s 86-118 Rapid) [place] 454633-02-21 12:50:00 Test Item Value Reference Range Interpretation Comments Split Point Rapid (test code = Split 0.6 min Point Rapid) [place] 454633-02-21 12:50:00 Test Item Value Reference Range Interpretation Comments R-time Rapid (test code = R-time 0.7 min 0.4-0.7 Rapid) [facility]SfkcjcyVITFSCESOH3782-85-69 12:50:00 Test Item Value Reference Range Interpretation Comments K-time Rapid (test code = K-time 1.1 min 0.6-2.3 Rapid) [facility] HospitalWvfcuhnFJGMGMKSKO7286-76-35 12:50:00 Test Item Value Reference Range Interpretation Comments Angle Rapid (test code = Angle 78 degrees 64-80 Rapid) [place] 454633-02-21 12:50:00 Test Item Value Reference Range Interpretation Comments Max Amplitude Rapid (test code = Max 65 mm 52-71 Amplitude Rapid) [place] [address]-02-21 12:50:00 Test Item Value Reference Range Interpretation Comments G-value Rapid (test code = G-value 9.2 5.0-11.6 Rapid) [facility] HospitalKrjboxoGLTOTDZSHA3411-21-20 12:50:00 Test Item Value Reference Range Interpretation Comments Estimated % Lysis Rapid 0.0 See_Comment [Au tomated message] The (test code = Estimated syste m which generated % Lysis Rapid) this result t ransmitted reference range : <=7.5. The reference r christiano was not used to int erpret this result as normal/abnormal . [facility] HospitalFhyxjrqNGCGVHEVJR4664-68-59 12:50:00 Test Item Value Reference Range Interpretation Comments Plt Morph (test code = See Note 1(11/21/22 Plt Morph) 6:50 AM) [facility] HospitalFegmvjjGNUAICHMNN3991-54-46 12:50:00 Test Item Value Reference Range Interpretation Comments Stomatocyte (test code = Stomatocyte) slight [facility] ChildrenFfcmtinRPUTAY3063-17-30 12:25:01 Test Item Value Reference Range Interpretation [...] arthroplasty [facility] the patella[facility] 12:25:[facility] Test Item Value Reference Range Interpretation [...] arthroplasty and resurfacing of the patella.UT SECTION: [place] [id number] 11:23:44 Test Item Value Reference Range Interpretation [...] along the tentorium. No significant midline shift. [place] [id number] 11:23:44 Test Item Value Reference Range Interpretation [...] along the tentorium. No significant midline shift. [facility]2020-12-07 10:24:00 Test Item Value Reference Range Interpretation Comments Creatinine Lvl (test code = Creatinine 1.82 0.50-1.40 Lvl) [facility]2020-12-07 10:24:00 Test Item Value Reference Range Interpretation Comments Sodium Lvl (test code = Sodium Lvl) 139 135-145 [facility]2020-12-07 10:24:00 Test Item Value Reference Range Interpretation Comments Potassium Lvl (test code = Potassium 4.2 3.5-5.1 Lvl) [facility]2020-12-07 10:24:00 Test Item Value Reference Range Interpretation Comments Chloride Lvl (test code = Chloride Lvl) 105 95-109 [facility]2020-12-07 10:24:00 Test Item Value Reference Range Interpretation Comments CO2 (test code = CO2) 28 24-32 [facility]2020-12-07 10:24:00 Test Item Value Reference Range Interpretation Comments Calcium Lvl (test code = Calcium Lvl) 8.2 8.5-10.5 [facility]2020-12-07 10:24:00 Test Item Value Reference Range Interpretation Comments AGAP (test code = AGAP) 10.2 10.0-20.0 [facility]2020-12-07 10:24:00 Test Item Value Reference Range Interpretation Comments eGFR (test code = eGFR) 26 [facility]DsfeccjTWQZGQDEZA6718-88-25 10:24:00 Test Item Value Reference Range Interpretation Comments Segs (test code = Segs) 70.6 45.0-75.0 [facility] HospitalAbajavrSWBTUSSGVW3625-53-19 10:24:00 Test Item Value Reference Range Interpretation Comments Lymphocytes (test code = Lymphocytes) 13.2 20.0-40.0 [facility] HospitalCqtxcdwIMPJHMMIVN5283-46-10 10:24:00 Test Item Value Reference Range Interpretation Comments Monocytes (test code = Monocytes) 10.9 2.0-12.0 [facility] HospitalQchhtjzQXTCWDAFXT0773-69-82 10:24:00 Test Item Value Reference Range Interpretation Comments Eosinophils (test code = 4.6 See_Comment [A utomated message] The Eosinophils) system which ge nerated this result tra nsmitted reference range : <=4.0. The reference r christiano was not used to int erpret this result as normal/abnormal . [facility] HospitalSxnixryFZXPJVYCIT5418-70-24 10:24:00 Test Item Value Reference Range Interpretation Comments Basophils (test code = 0.7 See_Comment [Aut omated message] The Basophils) system which ge nerated this result tra nsmitted reference range : <=1.0. The reference r christiano was not used to int erpret this result as normal/abnormal . [facility] HospitalXrifnbrWAMAQCFMOD6331-08-17 10:24:00 Test Item Value Reference Range Interpretation Comments Neutrophils # (test code = Neutrophils 5.3 1.5-8.1 #) [facility] HospitalPpcnsnvTQQHZSWIBB6204-13-93 10:24:00 Test Item Value Reference Range Interpretation Comments Lymphocytes # (test code = Lymphocytes 1.0 1.0-5.5 #) [facility] HospitalGkdglntJJRHVMVOKY4493-26-35 10:24:00 Test Item Value Reference Range Interpretation Comments Monocytes # (test code 0.8 See_Comment [Aut omated message] The = Monocytes #) system which generated this result tra nsmitted reference range : <=0.8. The reference r christiano was not used to int erpret this result as normal/abnormal . [facility] HospitalVkuthpaRIWCZNPCDI2289-38-10 10:24:00 Test Item Value Reference Range Interpretation Comments Eosinophils # (test code 0.3 See_Comment [A utomated message] The = Eosinophils #) system whic h generated this result tra nsmitted reference range : <=0.5. The reference r christiano was not used to int erpret this result as normal/abnormal . [facility] HospitalQgaaqumZORPMZJKII2954-06-81 10:24:00 Test Item Value Reference Range Interpretation Comments Basophils # (test code 0.1 See_Comment [Aut omated message] The = Basophils #) system which generated this result tra nsmitted reference range : <=0.2. The reference r christiano was not used to int erpret this result as normal/abnormal . [facility] HospitalPysihktZUPYKWYCRX8227-42-71 10:24:00 Test Item Value Reference Range Interpretation Comments WBC (test code = WBC) 7.5 3.7-10.4 [facility] HospitalSdobswyONPEYKKOMS1770-65-92 10:24:00 Test Item Value Reference Range Interpretation Comments RBC (test code = RBC) 3.85 4.20-5.40 [facility] HospitalBzxqgopXIYCCBVSIW4292-69-54 10:24:00 Test Item Value Reference Range Interpretation Comments Hgb (test code = Hgb) 10.6 12.0-16.0 [facility] HospitalFaedlujGRRXYLRWAV0189-76-34 10:24:00 Test Item Value Reference Range Interpretation Comments Hct (test code = Hct) 32.1 36.0-48.0 [facility] HospitalQtzqwvvYMQGZSCFFA0292-28-67 10:24:00 Test Item Value Reference Range Interpretation Comments MCV (test code = MCV) 83.5 80.0-98.0 [facility] HospitalQhfrbvlKMLTXFPLKG1985-81-06 10:24:00 Test Item Value Reference Range Interpretation Comments MCH (test code = MCH) 27.7 pg 27.0-31.0 [facility] HospitalWyqybkoJCDCNKSCMT0678-99-27 10:24:00 Test Item Value Reference Range Interpretation Comments MCHC (test code = MCHC) 33.1 32.0-36.0 [facility] HospitalKrgnysoKLYOSRIHNI8941-53-19 10:24:00 Test Item Value Reference Range Interpretation Comments RDW (test code = RDW) 16.8 11.5-14.5 [facility] HospitalEbvqjfpMSDGMFJZWJ7491-57-46 10:24:00 Test Item Value Reference Range Interpretation Comments Platelet (test code = Platelet) 185 133-450 [facility] HospitalXoaxtylJQJLYCPSFL0780-62-40 10:24:00 Test Item Value Reference Range Interpretation Comments MPV (test code = MPV) 8.4 7.4-10.4 [facility]2020-12-07 10:24:00 Test Item Value Reference Range Interpretation Comments Glucose Lvl (test code = Glucose Lvl) 66 70-99 [facility]2020-12-07 10:24:00 Test Item Value Reference Range Interpretation Comments BUN (test code = BUN) 19 7-22 [place] 280900-12-07 10:24:00 Test Item Value Reference Range Interpretation Comments Creatinine Lvl (test code = Creatinine 1.82 0.50-1.40 Lvl) [facility]2020-12-07 10:24:00 Test Item Value Reference Range Interpretation Comments Sodium Lvl (test code = Sodium Lvl) 139 135-145 [facility]2020-12-07 10:24:00 Test Item Value Reference Range Interpretation Comments Potassium Lvl (test code = Potassium 4.2 3.5-5.1 Lvl) [facility]2020-12-07 10:24:00 Test Item Value Reference Range Interpretation Comments Chloride Lvl (test code = Chloride Lvl) 105 95-109 [facility]2020-12-07 10:24:00 Test Item Value Reference Range Interpretation Comments CO2 (test code = CO2) 28 24-32 [place] 280900-12-07 10:24:00 Test Item Value Reference Range Interpretation Comments Calcium Lvl (test code = Calcium Lvl) 8.2 8.5-10.5 [facility]2020-12-07 10:24:00 Test Item Value Reference Range Interpretation Comments AGAP (test code = AGAP) 10.2 10.0-20.0 [facility]2020-12-07 10:24:00 Test Item Value Reference Range Interpretation Comments eGFR (test code = eGFR) 26 [facility] HospitalFfahdbgSEWQWPUZFA3219-61-45 10:24:00 Test Item Value Reference Range Interpretation Comments Segs (test code = Segs) 70.6 45.0-75.0 [place] [address]-12-07 10:24:00 Test Item Value Reference Range Interpretation Comments Lymphocytes (test code = Lymphocytes) 13.2 20.0-40.0 [place] [address]-12-07 10:24:00 Test Item Value Reference Range Interpretation Comments Monocytes (test code = Monocytes) 10.9 2.0-12.0 [place] [address]-12-07 10:24:00 Test Item Value Reference Range Interpretation Comments Eosinophils (test code = 4.6 See_Comment [A utomated message] The Eosinophils) system which ge nerated this result tra nsmitted reference range : <=4.0. The reference r christiano was not used to int erpret this result as normal/abnormal . [facility] HospitalWwaatweHPMDJNJUOW8017-94-44 10:24:00 Test Item Value Reference Range Interpretation Comments Basophils (test code = 0.7 See_Comment [Aut omated message] The Basophils) system which ge nerated this result tra nsmitted reference range : <=1.0. The reference r christiano was not used to int erpret this result as normal/abnormal . [facility] HospitalCzouptbEWTNTHRRNI2654-41-40 10:24:00 Test Item Value Reference Range Interpretation Comments Neutrophils # (test code = Neutrophils 5.3 1.5-8.1 #) [facility] HospitalUzfbtkgWUBGRTKRON4934-24-39 10:24:00 Test Item Value Reference Range Interpretation Comments Lymphocytes # (test code = Lymphocytes 1.0 1.0-5.5 #) [facility] HospitalWvkkpikDLNJCAOAVM7658-35-19 10:24:00 Test Item Value Reference Range Interpretation Comments Monocytes # (test code 0.8 See_Comment [Aut omated message] The = Monocytes #) system which generated this result tra nsmitted reference range : <=0.8. The reference r christiano was not used to int erpret this result as normal/abnormal . [facility]eyfcmuQDOXGXDQDK9991-57-13 10:24:00 Test Item Value Reference Range Interpretation Comments Eosinophils # (test code 0.3 See_Comment [A utomated message] The = Eosinophils #) system [facility] generated this result tra nsmitted reference range : <=0.5. The reference r christiano was not used to int erpret this result as normal/abnormal . [facility] HospitalYhlcvqpJGGYLYCLIH6867-19-64 10:24:00 Test Item Value Reference Range Interpretation Comments Basophils # (test code 0.1 See_Comment [Aut omated message] The = Basophils #) system which generated this result tra nsmitted reference range : <=0.2. The reference r christiano was not used to int erpret this result as normal/abnormal . [facility] HospitalWamytuxRPLQNXYMEE7873-20-32 10:24:00 Test Item Value Reference Range Interpretation Comments WBC (test code = WBC) 7.5 3.7-10.4 [facility] HospitalWwhujkwUVWQFGRMAC0912-81-05 10:24:00 Test Item Value Reference Range Interpretation Comments RBC (test code = RBC) 3.85 4.20-5.40 [facility] HospitalAbqxcfaUAXGAVVTBR9482-85-83 10:24:00 Test Item Value Reference Range Interpretation Comments Hgb (test code = Hgb) 10.6 12.0-16.0 [place] [address]-12-07 10:24:00 Test Item Value Reference Range Interpretation Comments Hct (test code = Hct) 32.1 36.0-48.0 [facility] HospitalNdqeaktUXLIOQNTQS0268-88-79 10:24:00 Test Item Value Reference Range Interpretation Comments MCV (test code = MCV) 83.5 80.0-98.0 [facility] HospitalVyhkjplLZQDOYDYDW3879-11-94 10:24:00 Test Item Value Reference Range Interpretation Comments MCH (test code = MCH) 27.7 pg 27.0-31.0 [place] 454630-12-07 10:24:00 Test Item Value Reference Range Interpretation Comments MCHC (test code = MCHC) 33.1 32.0-36.0 [facility]WeobdnbLCHPTIBGQX2678-80-63 10:24:00 Test Item Value Reference Range Interpretation Comments RDW (test code = RDW) 16.8 11.5-14.5 [facility] HospitalInbixciGANAEWEJZB2709-69-54 10:24:00 Test Item Value Reference Range Interpretation Comments Platelet (test code = Platelet) 185 133-450 [facility] HospitalUeqxpehLIVISOTFVW3527-72-52 10:24:00 Test Item Value Reference Range Interpretation Comments MPV (test code = MPV) 8.4 7.4-10.4 [facility]2020-12-07 10:24:00 Test Item Value Reference Range Interpretation Comments Glucose Lvl (test code = Glucose Lvl) 66 70-99 [facility]2020-12-07 10:24:00 Test Item Value Reference Range Interpretation Comments BUN (test code = BUN) 19 7-22 [facility]2020-12-07 10:24:00 Test Item Value Reference Range Interpretation Comments Creatinine Lvl (test code = Creatinine 1.82 0.50-1.40 Lvl) [facility]2020-12-07 10:24:00 Test Item Value Reference Range Interpretation Comments Sodium Lvl (test code = Sodium Lvl) 139 135-145 [facility]2020-12-07 10:24:00 Test Item Value Reference Range Interpretation Comments Potassium Lvl (test code = Potassium 4.2 3.5-5.1 Lvl) [facility]2020-12-07 10:24:00 Test Item Value Reference Range Interpretation Comments Chloride Lvl (test code = Chloride Lvl) 105 95-109 [place] 280900-12-07 10:24:00 Test Item Value Reference Range Interpretation Comments CO2 (test code = CO2) 28 24-32 [place] 280900-12-07 10:24:00 Test Item Value Reference Range Interpretation Comments Calcium Lvl (test code = Calcium Lvl) 8.2 8.5-10.5 [facility]2020-12-07 10:24:00 Test Item Value Reference Range Interpretation Comments AGAP (test code = AGAP) 10.2 10.0-20.0 [facility]2020-12-07 10:24:00 Test Item Value Reference Range Interpretation Comments eGFR (test code = eGFR) 26 [facility]WvltdmvZEYPQHICSS6321-35-38 10:24:00 Test Item Value Reference Range Interpretation Comments Segs (test code = Segs) 70.6 45.0-75.0 [facility] HospitalAjrrssdLKYKKLMGSR9183-06-20 10:24:00 Test Item Value Reference Range Interpretation Comments Lymphocytes (test code = Lymphocytes) 13.2 20.0-40.0 [facility] HospitalKbdwtbsEZCQVNMVUK7845-44-41 10:24:00 Test Item Value Reference Range Interpretation Comments Monocytes (test code = Monocytes) 10.9 2.0-12.0 [place] [address]-12-07 10:24:00 Test Item Value Reference Range Interpretation Comments Eosinophils (test code = 4.6 See_Comment [A utomated message] The Eosinophils) system which ge nerated this result tra nsmitted reference range : <=4.0. The reference r christiano was not used to int erpret this result as normal/abnormal . [facility] HospitalLgykwllZHOOOPJJRB6576-18-54 10:24:00 Test Item Value Reference Range Interpretation Comments Basophils (test code = 0.7 See_Comment [Aut omated message] The Basophils) system which ge nerated this result tra nsmitted reference range : <=1.0. The reference r christiano was not used to int erpret this result as normal/abnormal . [facility] HospitalTdfpdlsJZJHWFOEOL4576-95-32 10:24:00 Test Item Value Reference Range Interpretation Comments Neutrophils # (test code = Neutrophils 5.3 1.5-8.1 #) [facility] HospitalVlghakuWSZYHUIAJF2957-85-53 10:24:00 Test Item Value Reference Range Interpretation Comments Lymphocytes # (test code = Lymphocytes 1.0 1.0-5.5 #) [facility] HospitalZanjutrWCBNNUVVOR8274-13-00 10:24:00 Test Item Value Reference Range Interpretation Comments Monocytes # (test code 0.8 See_Comment [Aut omated message] The = Monocytes #) system which generated this result tra nsmitted reference range : <=0.8. The reference r christiano was not used to int erpret this result as normal/abnormal . [facility] HospitalJdjyuepOPJBXFVQPZ2293-18-05 10:24:00 Test Item Value Reference Range Interpretation Comments Eosinophils # (test code 0.3 See_Comment [A utomated message] The = Eosinophils #) system whic h generated this result tra nsmitted reference range : <=0.5. The reference r christiano was not used to int erpret this result as normal/abnormal . [facility] HospitalZkbvawwKAKESEZTNH8018-30-60 10:24:00 Test Item Value Reference Range Interpretation Comments Basophils # (test code 0.1 See_Comment [Aut omated message] The = Basophils #) system which generated this result tra nsmitted reference range : <=0.2. The reference r christiano was not used to int erpret this result as normal/abnormal . [facility] HospitalQlxgxzwXVLPZLCSBC2806-46-16 10:24:00 Test Item Value Reference Range Interpretation Comments WBC (test code = WBC) 7.5 3.7-10.4 [facility] HospitalRwvdpydSBBTWRLFQE7916-28-76 10:24:00 Test Item Value Reference Range Interpretation Comments RBC (test code = RBC) 3.85 4.20-5.40 [facility] HospitalWslcamdGHQJZNSXST2498-70-11 10:24:00 Test Item Value Reference Range Interpretation Comments Hgb (test code = Hgb) 10.6 12.0-16.0 [place] 454630-12-07 10:24:00 Test Item Value Reference Range Interpretation Comments Hct (test code = Hct) 32.1 36.0-48.0 [place] [address]-12-07 10:24:00 Test Item Value Reference Range Interpretation Comments MCV (test code = MCV) 83.5 80.0-98.0 [place] [address]-12-07 10:24:00 Test Item Value Reference Range Interpretation Comments MCH (test code = MCH) 27.7 pg 27.0-31.0 [place] [address]-12-07 10:24:00 Test Item Value Reference Range Interpretation Comments MCHC (test code = MCHC) 33.1 32.0-36.0 [place] [address]-12-07 10:24:00 Test Item Value Reference Range Interpretation Comments RDW (test code = RDW) 16.8 11.5-14.5 [place] [address]-12-07 10:24:00 Test Item Value Reference Range Interpretation Comments Platelet (test code = Platelet) 185 133-450 [place] 454630-12-07 10:24:00 Test Item Value Reference Range Interpretation Comments MPV (test code = MPV) 8.4 7.4-10.4 [facility]2020-12-07 10:24:00 Test Item Value Reference Range Interpretation Comments Glucose Lvl (test code = Glucose Lvl) 66 70-99 [facility]2020-12-07 10:24:00 Test Item Value Reference Range Interpretation Comments BUN (test code = BUN) 19 7-22 [place] 280900-12-07 10:24:00 Test Item Value Reference Range Interpretation Comments Creatinine Lvl (test code = Creatinine 1.82 0.50-1.40 Lvl) [facility]2020-12-07 10:24:00 Test Item Value Reference Range Interpretation Comments Sodium Lvl (test code = Sodium Lvl) 139 135-145 [facility]2020-12-07 10:24:00 Test Item Value Reference Range Interpretation Comments Potassium Lvl (test code = Potassium 4.2 3.5-5.1 Lvl) [facility]2020-12-07 10:24:00 Test Item Value Reference Range Interpretation Comments Chloride Lvl (test code = Chloride Lvl) 105 95-109 [facility]2020-12-07 10:24:00 Test Item Value Reference Range Interpretation Comments CO2 (test code = CO2) 28 24-32 [place] 280900-12-07 10:24:00 Test Item Value Reference Range Interpretation Comments Calcium Lvl (test code = Calcium Lvl) 8.2 8.5-10.5 [facility]2020-12-07 10:24:00 Test Item Value Reference Range Interpretation Comments AGAP (test code = AGAP) 10.2 10.0-20.0 [place] 280900-12-07 10:24:00 Test Item Value Reference Range Interpretation Comments eGFR (test code = eGFR) 26 [facility] HospitalHkniohjNZREBUPVCX4864-60-52 10:24:00 Test Item Value Reference Range Interpretation Comments Segs (test code = Segs) 70.6 45.0-75.0 [place] 454630-12-07 10:24:00 Test Item Value Reference Range Interpretation Comments Lymphocytes (test code = Lymphocytes) 13.2 20.0-40.0 [place] 454630-12-07 10:24:00 Test Item Value Reference Range Interpretation Comments Monocytes (test code = Monocytes) 10.9 2.0-12.0 [facility] HospitalWuyjqefBUVXOASHBJ2720-38-02 10:24:00 Test Item Value Reference Range Interpretation Comments Eosinophils (test code = 4.6 See_Comment [A utomated message] The Eosinophils) system which ge nerated this result tra nsmitted reference range : <=4.0. The reference r christiano was not used to int erpret this result as normal/abnormal . [facility] HospitalZmejmfiOAJLCVZVPX2495-55-81 10:24:00 Test Item Value Reference Range Interpretation Comments Basophils (test code = 0.7 See_Comment [Aut omated message] The Basophils) system which ge nerated this result tra nsmitted reference range : <=1.0. The reference r christiano was not used to int erpret this result as normal/abnormal . [place] 454630-12-07 10:24:00 Test Item Value Reference Range Interpretation Comments Neutrophils # (test code = Neutrophils 5.3 1.5-8.1 #) [facility] HospitalRoqlfdoFBWQTCDHYR4612-34-69 10:24:00 Test Item Value Reference Range Interpretation Comments Lymphocytes # (test code = Lymphocytes 1.0 1.0-5.5 #) [facility] HospitalPmjdpqxLRZJONNRHG2865-69-11 10:24:00 Test Item Value Reference Range Interpretation Comments Monocytes # (test code 0.8 See_Comment [Aut omated message] The = Monocytes #) system which generated this result tra nsmitted reference range : <=0.8. The reference r christiano was not used to int erpret this result as normal/abnormal . [facility] HospitalApbubloAKQMHXOUOQ7367-87-80 10:24:00 Test Item Value Reference Range Interpretation Comments Eosinophils # (test code 0.3 See_Comment [A utomated message] The = Eosinophils #) system whic h generated this result tra nsmitted reference range : <=0.5. The reference r christiano was not used to int erpret this result as normal/abnormal . [facility] HospitalYppzffmRRRHPOWUJB8341-73-08 10:24:00 Test Item Value Reference Range Interpretation Comments Basophils # (test code 0.1 See_Comment [Aut omated message] The = Basophils #) system which generated this result tra nsmitted reference range : <=0.2. The reference r christiano was not used to int erpret this result as normal/abnormal . [facility] HospitalAxzfokrMXVRCVIKTI7254-41-92 10:24:00 Test Item Value Reference Range Interpretation Comments WBC (test code = WBC) 7.5 3.7-10.4 [facility] HospitalGmpenvqOLMIHJMQVD3682-82-59 10:24:00 Test Item Value Reference Range Interpretation Comments RBC (test code = RBC) 3.85 4.20-5.40 [place] 454630-12-07 10:24:00 Test Item Value Reference Range Interpretation Comments Hgb (test code = Hgb) 10.6 12.0-16.0 [place] [address]-12-07 10:24:00 Test Item Value Reference Range Interpretation Comments Hct (test code = Hct) 32.1 36.0-48.0 [place] 454630-12-07 10:24:00 Test Item Value Reference Range Interpretation Comments MCV (test code = MCV) 83.5 80.0-98.0 [facility] HospitalZqkqymkBCBJEONWQK0087-84-20 10:24:00 Test Item Value Reference Range Interpretation Comments MCH (test code = MCH) 27.7 pg 27.0-31.0 [facility] HospitalVzwqdwdBLCSLFYYUO0017-29-23 10:24:00 Test Item Value Reference Range Interpretation Comments MCHC (test code = MCHC) 33.1 32.0-36.0 [facility] HospitalHfbwpthPVEIMBHECF8915-48-64 10:24:00 Test Item Value Reference Range Interpretation Comments RDW (test code = RDW) 16.8 11.5-14.5 [facility] HospitalEallhtdBSACXEWEQZ6639-61-15 10:24:00 Test Item Value Reference Range Interpretation Comments Platelet (test code = Platelet) 185 133-450 [facility] HospitalSfabpriUFTFXAAFKO1062-14-16 10:24:00 Test Item Value Reference Range Interpretation Comments MPV (test code = MPV) 8.4 7.4-10.4 [facility]2020-12-07 10:24:00 Test Item Value Reference Range Interpretation Comments Glucose Lvl (test code = Glucose Lvl) 66 70-99 [facility]2020-12-07 10:24:00 Test Item Value Reference Range Interpretation Comments BUN (test code = BUN) 19 7-22 [facility]2020-12-07 10:24:00 Test Item Value Reference Range Interpretation Comments Creatinine Lvl (test code = Creatinine 1.82 0.50-1.40 Lvl) [facility]2020-12-07 10:24:00 Test Item Value Reference Range Interpretation Comments Sodium Lvl (test code = Sodium Lvl) 139 135-145 [facility]2020-12-07 10:24:00 Test Item Value Reference Range Interpretation Comments Potassium Lvl (test code = Potassium 4.2 3.5-5.1 Lvl) [facility]2020-12-07 10:24:00 Test Item Value Reference Range Interpretation Comments Chloride Lvl (test code = Chloride Lvl) 105 95-109 [facility]2020-12-07 10:24:00 Test Item Value Reference Range Interpretation Comments CO2 (test code = CO2) 28 24-32 [facility]2020-12-07 10:24:00 Test Item Value Reference Range Interpretation Comments Calcium Lvl (test code = Calcium Lvl) 8.2 8.5-10.5 [place] 280900-12-07 10:24:00 Test Item Value Reference Range Interpretation Comments AGAP (test code = AGAP) 10.2 10.0-20.0 [facility]2020-12-07 10:24:00 Test Item Value Reference Range Interpretation Comments Glucose Lvl (test code = Glucose Lvl) 66 70-99 [facility]2020-12-07 10:24:00 Test Item Value Reference Range Interpretation Comments BUN (test code = BUN) 19 7-22 [place] 280900-12-07 10:24:00 Test Item Value Reference Range Interpretation Comments Creatinine Lvl (test code = Creatinine 1.82 0.50-1.40 Lvl) [facility]2020-12-07 10:24:00 Test Item Value Reference Range Interpretation Comments Sodium Lvl (test code = Sodium Lvl) 139 135-145 [facility]2020-12-07 10:24:00 Test Item Value Reference Range Interpretation Comments Potassium Lvl (test code = Potassium 4.2 3.5-5.1 Lvl) [facility]2020-12-07 10:24:00 Test Item Value Reference Range Interpretation Comments eGFR (test code = eGFR) 26 [facility]2020-12-07 10:24:00 Test Item Value Reference Range Interpretation Comments Chloride Lvl (test code = Chloride Lvl) 105 95-109 [facility]2020-12-07 10:24:00 Test Item Value Reference Range Interpretation Comments CO2 (test code = CO2) 28 24-32 [facility]2020-12-07 10:24:00 Test Item Value Reference Range Interpretation Comments Calcium Lvl (test code = Calcium Lvl) 8.2 8.5-10.5 [facility]2020-12-07 10:24:00 Test Item Value Reference Range Interpretation Comments AGAP (test code = AGAP) 10.2 10.0-20.0 [facility]2020-12-07 10:24:00 Test Item Value Reference Range Interpretation Comments eGFR (test code = eGFR) 26 [facility] HospitalVggysrsUGPUDVGFXX9518-65-64 10:24:00 Test Item Value Reference Range Interpretation Comments Segs (test code = Segs) 70.6 45.0-75.0 [place] 454630-12-07 10:24:00 Test Item Value Reference Range Interpretation Comments Lymphocytes (test code = Lymphocytes) 13.2 20.0-40.0 [place] 454630-12-07 10:24:00 Test Item Value Reference Range Interpretation Comments Monocytes (test code = Monocytes) 10.9 2.0-12.0 [place] 454630-12-07 10:24:00 Test Item Value Reference Range Interpretation Comments Eosinophils (test code = 4.6 See_Comment [A utomated message] The Eosinophils) system which ge nerated this result tra nsmitted reference range : <=4.0. The reference r christiano was not used to int erpret this result as normal/abnormal . [facility] HospitalKeuuhnwYLGJILQFJX6669-69-80 10:24:00 Test Item Value Reference Range Interpretation Comments Basophils (test code = 0.7 See_Comment [Aut omated message] The Basophils) system which ge nerated this result tra nsmitted reference range : <=1.0. The reference r christiano was not used to int erpret this result as normal/abnormal . [facility] HospitalGitcbrfPDVIKXUFXA7654-95-81 10:24:00 Test Item Value Reference Range Interpretation Comments Segs (test code = Segs) 70.6 45.0-75.0 [place] 454630-12-07 10:24:00 Test Item Value Reference Range Interpretation Comments Neutrophils # (test code = Neutrophils 5.3 1.5-8.1 #) [facility]WmehtxkAJXPQHLUYN5536-86-03 10:24:00 Test Item Value Reference Range Interpretation Comments Lymphocytes # (test code = Lymphocytes 1.0 1.0-5.5 #) [facility] HospitalOohqazmYUMHTBMDVG5276-28-87 10:24:00 Test Item Value Reference Range Interpretation Comments Monocytes # (test code 0.8 See_Comment [Aut omated message] The = Monocytes #) system which generated this result tra nsmitted reference range : <=0.8. The reference r christiano was not used to int erpret this result as normal/abnormal . [place] 454630-12-07 10:24:00 Test Item Value Reference Range Interpretation Comments Eosinophils # (test code 0.3 See_Comment [A utomated message] The = Eosinophils #) system whic h generated this result tra nsmitted reference range : <=0.5. The reference r christiano was not used to int erpret this result as normal/abnormal . [facility] HospitalOyxuduxKLWLVCZIDM0874-40-02 10:24:00 Test Item Value Reference Range Interpretation Comments Basophils # (test code 0.1 See_Comment [Aut omated message] The = Basophils #) system which generated this result tra nsmitted reference range : <=0.2. The reference r christiano was not used to int erpret this result as normal/abnormal . [facility] HospitalYjkqxmpNPTTUUJCSZ9522-59-01 10:24:00 Test Item Value Reference Range Interpretation Comments WBC (test code = WBC) 7.5 3.7-10.4 [facility]BgqmmcgRPVOZJSOSC6638-37-75 10:24:00 Test Item Value Reference Range Interpretation Comments RBC (test code = RBC) 3.85 4.20-5.40 [facility]MnlllauCQWLVFFCTI0308-20-10 10:24:00 Test Item Value Reference Range Interpretation Comments Hgb (test code = Hgb) 10.6 12.0-16.0 [facility]YtygtziOBOUBBXLVP3489-18-94 10:24:00 Test Item Value Reference Range Interpretation Comments Hct (test code = Hct) 32.1 36.0-48.0 [facility] HospitalFqtllmcHRFIFWXYGG8654-70-52 10:24:00 Test Item Value Reference Range Interpretation Comments MCV (test code = MCV) 83.5 80.0-98.0 [facility] HospitalIacbgsvIRGQLIAAKE0723-18-78 10:24:00 Test Item Value Reference Range Interpretation Comments Lymphocytes (test code = Lymphocytes) 13.2 20.0-40.0 [facility] HospitalGomdjbnRYVLQTLPRS1620-43-38 10:24:00 Test Item Value Reference Range Interpretation Comments MCH (test code = MCH) 27.7 pg 27.0-31.0 [facility] HospitalBnjkdukNBSTCXFRTB2641-27-13 10:24:00 Test Item Value Reference Range Interpretation Comments MCHC (test code = MCHC) 33.1 32.0-36.0 [facility] HospitalKktnovwQNMOTIOURR8548-36-39 10:24:00 Test Item Value Reference Range Interpretation Comments RDW (test code = RDW) 16.8 11.5-14.5 [facility] HospitalPbimlapCUGJXAWDFL3609-15-27 10:24:00 Test Item Value Reference Range Interpretation Comments Platelet (test code = Platelet) 185 133-450 [facility] HospitalUqlhengGGRMLUGCTF1770-54-26 10:24:00 Test Item Value Reference Range Interpretation Comments MPV (test code = MPV) 8.4 7.4-10.4 [facility]WytwlupQASGRBYSUL8565-59-39 10:24:00 Test Item Value Reference Range Interpretation Comments Monocytes (test code = Monocytes) 10.9 2.0-12.0 [facility] HospitalNwmerkiNBPBXMBGTO9544-56-51 10:24:00 Test Item Value Reference Range Interpretation Comments Eosinophils (test code = 4.6 See_Comment [A utomated message] The Eosinophils) system which ge nerated this result tra nsmitted reference range : <=4.0. The reference r christiano was not used to int erpret this result as normal/abnormal . [facility] HospitalDopqfpmQUSEAWRWZC0327-77-00 10:24:00 Test Item Value Reference Range Interpretation Comments Basophils (test code = 0.7 See_Comment [Aut omated message] The Basophils) system which ge nerated this result tra nsmitted reference range : <=1.0. The reference r christiano was not used to int erpret this result as normal/abnormal . [facility] HospitalSxqmwhwVKCFZEHZDC4631-69-98 10:24:00 Test Item Value Reference Range Interpretation Comments Neutrophils # (test code = Neutrophils 5.3 1.5-8.1 #) [facility] HospitalJfbbyaqDGHTQRUIHC1034-62-21 10:24:00 Test Item Value Reference Range Interpretation Comments Lymphocytes # (test code = Lymphocytes 1.0 1.0-5.5 #) [facility] HospitalNinthguNFQALEJHWA9569-32-35 10:24:00 Test Item Value Reference Range Interpretation Comments Monocytes # (test code 0.8 See_Comment [Aut omated message] The = Monocytes #) system which generated this result tra nsmitted reference range : <=0.8. The reference r christiano was not used to int erpret this result as normal/abnormal . [facility] HospitalWllipjtDMJWGGETPJ4792-23-02 10:24:00 Test Item Value Reference Range Interpretation Comments Eosinophils # (test code 0.3 See_Comment [A utomated message] The = Eosinophils #) system whic h generated this result tra nsmitted reference range : <=0.5. The reference r christiano was not used to int erpret this result as normal/abnormal . [facility] HospitalBfrsyeeCVVAIXMECQ4276-69-34 10:24:00 Test Item Value Reference Range Interpretation Comments Basophils # (test code 0.1 See_Comment [Aut omated message] The = Basophils #) system which generated this result tra nsmitted reference range : <=0.2. The reference r christiano was not used to int erpret this result as normal/abnormal . [facility] HospitalYlrpkauJHQSELGGEZ0046-05-24 10:24:00 Test Item Value Reference Range Interpretation Comments WBC (test code = WBC) 7.5 3.7-10.4 [facility]ikrucoRRIWONEVEO3070-39-94 10:24:00 Test Item Value Reference Range Interpretation Comments RBC (test code = RBC) 3.85 4.20-5.40 [facility]EiwtdxaJGZMFJEMXJ6543-55-33 10:24:00 Test Item Value Reference Range Interpretation Comments Hgb (test code = Hgb) 10.6 12.0-16.0 [facility]JdpypfmTNJUNMFWPG9385-07-24 10:24:00 Test Item Value Reference Range Interpretation Comments Hct (test code = Hct) 32.1 36.0-48.0 [facility]UkzmmyhVMFODPNGCQ8440-59-27 10:24:00 Test Item Value Reference Range Interpretation Comments MCV (test code = MCV) 83.5 80.0-98.0 [facility]VonlorcXKFVPQAYDA4699-29-27 10:24:00 Test Item Value Reference Range Interpretation Comments MCH (test code = MCH) 27.7 pg 27.0-31.0 [facility] HospitalMltazcnQEMRXBKOYH6222-13-40 10:24:00 Test Item Value Reference Range Interpretation Comments MCHC (test code = MCHC) 33.1 32.0-36.0 [facility]AqqpehaWHESUDDYWS1120-19-37 10:24:00 Test Item Value Reference Range Interpretation Comments RDW (test code = RDW) 16.8 11.5-14.5 [facility]PSHKZQZN4644-54-32 10:24:00 Test Item Value Reference Range Interpretation Comments Platelet (test code = Platelet) 185 133-450 [facility]GyajsvuOZNAZKHQDX8334-72-88 10:24:00 Test Item Value Reference Range Interpretation Comments MPV (test code = MPV) 8.4 7.4-10.4 [facility]2020-12-07 10:24:00 Test Item Value Reference Range Interpretation Comments Glucose Lvl (test code = Glucose Lvl) 66 70-99 [facility]2020-12-07 10:24:00 Test Item Value Reference Range Interpretation Comments BUN (test code = BUN) 19 7-22 [facility]2020-12-07 10:24:00 Test Item Value Reference Range Interpretation Comments Creatinine Lvl (test code = Creatinine 1.82 0.50-1.40 Lvl) [facility]2020-12-07 10:24:00 Test Item Value Reference Range Interpretation Comments Sodium Lvl (test code = Sodium Lvl) 139 135-145 [facility]2020-12-07 10:24:00 Test Item Value Reference Range Interpretation Comments Potassium Lvl (test code = Potassium 4.2 3.5-5.1 Lvl) [facility]2020-12-07 10:24:00 Test Item Value Reference Range Interpretation Comments Chloride Lvl (test code = Chloride Lvl) 105 95-109 [facility]2020-12-07 10:24:00 Test Item Value Reference Range Interpretation Comments CO2 (test code = CO2) 28 24-32 [facility]2020-12-07 10:24:00 Test Item Value Reference Range Interpretation Comments Calcium Lvl (test code = Calcium Lvl) 8.2 8.5-10.5 [facility]2020-12-07 10:24:00 Test Item Value Reference Range Interpretation Comments AGAP (test code = AGAP) 10.2 10.0-20.0 [facility]2020-12-07 10:24:00 Test Item Value Reference Range Interpretation Comments eGFR (test code = eGFR) 26 [facility]LhivlmhYRBVNTCJRO6856-77-87 10:24:00 Test Item Value Reference Range Interpretation Comments Segs (test code = Segs) 70.6 45.0-75.0 [place] 454630-12-07 10:24:00 Test Item Value Reference Range Interpretation Comments Lymphocytes (test code = Lymphocytes) 13.2 20.0-40.0 [place] 454630-12-07 10:24:00 Test Item Value Reference Range Interpretation Comments Monocytes (test code = Monocytes) 10.9 2.0-12.0 [place] [address]-12-07 10:24:00 Test Item Value Reference Range Interpretation Comments Eosinophils (test code = 4.6 See_Comment [A utomated message] The Eosinophils) system which ge nerated this result tra nsmitted reference range : <=4.0. The reference r christiano was not used to int erpret this result as normal/abnormal . [facility] HospitalKucfehnFOQVGSDUMM7465-40-35 10:24:00 Test Item Value Reference Range Interpretation Comments Basophils (test code = 0.7 See_Comment [Aut omated message] The Basophils) system which ge nerated this result tra nsmitted reference range : <=1.0. The reference r christiano was not used to int erpret this result as normal/abnormal . [facility] HospitalHvupnhdJULYOWFJPM1487-70-06 10:24:00 Test Item Value Reference Range Interpretation Comments Neutrophils # (test code = Neutrophils 5.3 1.5-8.1 #) [facility] HospitalWlhiurfJWPMWZTEBM6358-77-38 10:24:00 Test Item Value Reference Range Interpretation Comments Lymphocytes # (test code = Lymphocytes 1.0 1.0-5.5 #) [facility] HospitalFengpplNPHLDSJIXZ8691-18-54 10:24:00 Test Item Value Reference Range Interpretation Comments Monocytes # (test code 0.8 See_Comment [Aut omated message] The = Monocytes #) system which generated this result tra nsmitted reference range : <=0.8. The reference r christiano was not used to int erpret this result as normal/abnormal . [facility] HospitalCtapkzuRGWBWCUWBK9953-08-15 10:24:00 Test Item Value Reference Range Interpretation Comments Eosinophils # (test code 0.3 See_Comment [A utomated message] The = Eosinophils #) system whic h generated this result tra nsmitted reference range : <=0.5. The reference r christiano was not used to int erpret this result as normal/abnormal . [facility] HospitalFotbpcgACHXTISYFZ6754-18-78 10:24:00 Test Item Value Reference Range Interpretation Comments Basophils # (test code 0.1 See_Comment [Aut omated message] The = Basophils #) system which generated this result tra nsmitted reference range : <=0.2. The reference r christiano was not used to int erpret this result as normal/abnormal . [facility] HospitalYruzbqtXVWZFTOZGS6080-87-65 10:24:00 Test Item Value Reference Range Interpretation Comments WBC (test code = WBC) 7.5 3.7-10.4 [facility]SmdghleFKGZKTNCSO5147-10-76 10:24:00 Test Item Value Reference Range Interpretation Comments RBC (test code = RBC) 3.85 4.20-5.40 [facility]UnkiczvUCGYCGVGPP8893-38-56 10:24:00 Test Item Value Reference Range Interpretation Comments Hgb (test code = Hgb) 10.6 12.0-16.0 [facility] HospitalNnihrykRVQIJYSSJO7028-08-97 10:24:00 Test Item Value Reference Range Interpretation Comments Hct (test code = Hct) 32.1 36.0-48.0 [facility] HospitalGbnyelxHPJEHWXOAZ0853-74-43 10:24:00 Test Item Value Reference Range Interpretation Comments MCV (test code = MCV) 83.5 80.0-98.0 [facility] HospitalJhwehpdTOPOCSPFDQ1238-60-04 10:24:00 Test Item Value Reference Range Interpretation Comments MCH (test code = MCH) 27.7 pg 27.0-31.0 [facility] HospitalWnvnxppFSZWRJOJLY4773-39-79 10:24:00 Test Item Value Reference Range Interpretation Comments MCHC (test code = MCHC) 33.1 32.0-36.0 [facility] HospitalFpdzbdmTYJFITIDRN8955-38-77 10:24:00 Test Item Value Reference Range Interpretation Comments RDW (test code = RDW) 16.8 11.5-14.5 [facility] HospitalSgehdskANAYIWGPNG8112-42-98 10:24:00 Test Item Value Reference Range Interpretation Comments Platelet (test code = Platelet) 185 133-450 [facility] HospitalDeqtdvzYYDYGSNCVJ6589-30-10 10:24:00 Test Item Value Reference Range Interpretation Comments MPV (test code = MPV) 8.4 7.4-10.4 [facility]2020-12-07 10:24:00 Test Item Value Reference Range Interpretation Comments Glucose Lvl (test code = Glucose Lvl) 66 70-99 [facility]2020-12-07 10:24:00 Test Item Value Reference Range Interpretation Comments BUN (test code = BUN) 19 7-22 [place] 280900-12-06 09:53:13 Test Item Value Reference Range Interpretation Comments Magnesium Lvl (test code = Magnesium 2.2 1.8-2.4 Lvl) [place] [address]-12-06 09:53:13 Test Item Value Reference Range Interpretation Comments Phosphorus (test code = Phosphorus) 2.9 2.5-4.5 [place] [address]-12-06 09:53:13 Test Item Value Reference Range Interpretation Comments Glucose Lvl (test code = Glucose Lvl) 102 70-[address]12-06 09:53:13 Test Item Value Reference Range Interpretation Comments BUN (test code = BUN) 17 7-[address]12-06 09:53:13 Test Item Value Reference Range Interpretation Comments Creatinine Lvl (test code = Creatinine 1.51 0.50-1.40 Lvl) [address]12-06 09:53:13 Test Item Value Reference Range Interpretation Comments Sodium Lvl (test code = Sodium Lvl) 140 135-145 [place] [address]-12-06 09:53:13 Test Item Value Reference Range Interpretation Comments Potassium Lvl (test code = Potassium 3.5 3.5-5.1 Lvl) [address]12-06 09:53:13 Test Item Value Reference Range Interpretation Comments Chloride Lvl (test code = Chloride Lvl) 106 95-109 [place] [address]-12-06 09:53:13 Test Item Value Reference Range Interpretation Comments CO2 (test code = CO2) 29 24-32 [place] [address]-12-06 09:53:13 Test Item Value Reference Range Interpretation Comments Calcium Lvl (test code = Calcium Lvl) 8.3 8.5-10.5 [place] [address]-12-06 09:53:13 Test Item Value Reference Range Interpretation Comments AGAP (test code = AGAP) 8.5 10.0-20.0 [place] [address]-12-06 09:53:13 Test Item Value Reference Range Interpretation Comments eGFR (test code = eGFR) 33 [place] [address]-12-06 09:53:13 Test Item Value Reference Range Interpretation Comments WBC (test code = WBC) 8.7 3.7-10.4 [place] [address]-12-06 09:53:13 Test Item Value Reference Range Interpretation Comments RBC (test code = RBC) 3.96 4.20-5.40 [place] [address]-12-06 09:53:13 Test Item Value Reference Range Interpretation Comments Hgb (test code = Hgb) 10.7 12.0-16.0 [place] [address]-12-06 09:53:13 Test Item Value Reference Range Interpretation Comments Hct (test code = Hct) 32.8 36.0-48.0 [place] [address]-12-06 09:53:13 Test Item Value Reference Range Interpretation Comments MCV (test code = MCV) 83.0 80.0-98.0 [place] [address]-12-06 09:53:13 Test Item Value Reference Range Interpretation Comments MCH (test code = MCH) 26.9 pg 27.0-31.0 [place] [address]-12-06 09:53:13 Test Item Value Reference Range Interpretation Comments MCHC (test code = MCHC) 32.4 32.0-36.0 [place] [address]-12-06 09:53:13 Test Item Value Reference Range Interpretation Comments RDW (test code = RDW) 16.5 11.5-14.5 [place] [address]-12-06 09:53:13 Test Item Value Reference Range Interpretation Comments Platelet (test code = Platelet) 157 133-450 [place] [address]-12-06 09:53:13 Test Item Value Reference Range Interpretation Comments MPV (test code = MPV) 7.5 7.4-10.4 [place] [address]-12-06 09:53:13 Test Item Value Reference Range Interpretation Comments Neutrophils # (test code = Neutrophils 7.2 1.5-8.1 #) [place] [address]-12-06 09:53:13 Test Item Value Reference Range Interpretation Comments Lymphocytes # (test code = Lymphocytes 0.9 1.0-5.5 #) [place] [address]-12-06 09:53:13 Test Item Value Reference Range Interpretation Comments Monocytes # (test code 0.5 See_Comment [Aut omated message] The = Monocytes #) system which generated this result tra nsmitted reference range : <=0.8. The reference r christiano was not used to int erpret this result as normal/abnormal . [facility] HospitalVuuyfgaGFCEDYVZPY7397-63-92 09:53:13 Test Item Value Reference Range Interpretation Comments Basophils # (test code 0.1 See_Comment [Aut omated message] The = Basophils #) system which generated this result tra nsmitted reference range : <=0.2. The reference r christiano was not used to int erpret this result as normal/abnormal . [facility]NhctpsbROCCRLIRWE6589-70-24 09:53:13 Test Item Value Reference Range Interpretation Comments Segs (test code = Segs) 83.0 45.0-75.0 [facility]MiqlejwHHQTWBQNAB5595-33-71 09:53:13 Test Item Value Reference Range Interpretation Comments Bands (test code = 0.0 See_Comment [Automat ed message] The Bands) system which ge nerated this result transmit sheba reference range : <=11.0. The reference r christiano was not used to interpr et this result as edy l/abnormal. [facility] HospitalMkbxicwBUHARUHFFO4508-27-08 09:53:13 Test Item Value Reference Range Interpretation Comments Lymphocytes (test code = Lymphocytes) 10.0 20.0-40.0 [facility]FpzfnqgJYVKVQXACK2839-78-71 09:53:13 Test Item Value Reference Range Interpretation Comments Monocytes (test code = Monocytes) 6.0 2.0-12.0 [facility] HospitalGcuxbdxBALWRCVVQQ2313-96-33 09:53:13 Test Item Value Reference Range Interpretation Comments Basophils (test code = 1.0 See_Comment [Aut omated message] The Basophils) system which ge nerated this result tra nsmitted reference range : <=1.0. The reference r christiano was not used to int erpret this result as normal/abnormal . [facility] HospitalUfwvyhxZFRVMYWUWU3670-28-65 09:53:13 Test Item Value Reference Range Interpretation Comments Atypical Lymphs (test code = Atypical 0.0 Lymphs) [facility]WrpkkjrBCKUMBRYTF2438-01-31 09:53:13 Test Item Value Reference Range Interpretation Comments RBC Morph (test code = Normal (09/05/20 3:53 RBC Morph) AM) [facility]XuvwuyyKINBFIHBSH5037-66-88 09:53:13 Test Item Value Reference Range Interpretation Comments Plt Morph (test code = Normal (09/05/20 3:53 Plt Morph) AM) [place] [address]-12-06 09:53:13 Test Item Value Reference Range Interpretation Comments Magnesium Lvl (test code = Magnesium 2.2 1.8-2.4 Lvl) [place] [address]-12-06 09:53:13 Test Item Value Reference Range Interpretation Comments Phosphorus (test code = Phosphorus) 2.9 2.5-4.5 [address]12-06 09:53:13 Test Item Value Reference Range Interpretation Comments Glucose Lvl (test code = Glucose Lvl) 102 70-99 [place] [address]-12-06 09:53:13 Test Item Value Reference Range Interpretation Comments BUN (test code = BUN) 17 7-22 [place] [address]-12-06 09:53:13 Test Item Value Reference Range Interpretation Comments Creatinine Lvl (test code = Creatinine 1.51 0.50-1.40 Lvl) [place] [address]-12-06 09:53:13 Test Item Value Reference Range Interpretation Comments Sodium Lvl (test code = Sodium Lvl) 140 135-145 [place] [address]-12-06 09:53:13 Test Item Value Reference Range Interpretation Comments Potassium Lvl (test code = Potassium 3.5 3.5-5.1 Lvl) [place] [address]-12-06 09:53:13 Test Item Value Reference Range Interpretation Comments Chloride Lvl (test code = Chloride Lvl) 106 95-109 [place] [address]-12-06 09:53:13 Test Item Value Reference Range Interpretation Comments CO2 (test code = CO2) 29 24-32 [place] [address]-12-06 09:53:13 Test Item Value Reference Range Interpretation Comments Calcium Lvl (test code = Calcium Lvl) 8.3 8.5-10.5 [place] [address]-12-06 09:53:13 Test Item Value Reference Range Interpretation Comments AGAP (test code = AGAP) 8.5 10.0-20.0 [place] [address]-12-06 09:53:13 Test Item Value Reference Range Interpretation Comments eGFR (test code = eGFR) 33 [place] [address]-12-06 09:53:13 Test Item Value Reference Range Interpretation Comments WBC (test code = WBC) 8.7 3.7-10.4 [place] [address]-12-06 09:53:13 Test Item Value Reference Range Interpretation Comments RBC (test code = RBC) 3.96 4.20-5.40 [place] [address]-12-06 09:53:13 Test Item Value Reference Range Interpretation Comments Hgb (test code = Hgb) 10.7 12.0-16.0 [place] [address]-12-06 09:53:13 Test Item Value Reference Range Interpretation Comments Hct (test code = Hct) 32.8 36.0-48.0 [place] [address]-12-06 09:53:13 Test Item Value Reference Range Interpretation Comments MCV (test code = MCV) 83.0 80.0-98.0 [place] [address]-12-06 09:53:13 Test Item Value Reference Range Interpretation Comments MCH (test code = MCH) 26.9 pg 27.0-31.0 [place] 454630-12-06 09:53:13 Test Item Value Reference Range Interpretation Comments MCHC (test code = MCHC) 32.4 32.0-36.0 [place] 454630-12-06 09:53:13 Test Item Value Reference Range Interpretation Comments RDW (test code = RDW) 16.5 11.5-14.5 [place] [address]-12-06 09:53:13 Test Item Value Reference Range Interpretation Comments Platelet (test code = Platelet) 157 133-450 [place] 454630-12-06 09:53:13 Test Item Value Reference Range Interpretation Comments MPV (test code = MPV) 7.5 7.4-10.4 [place] [address]-12-06 09:53:13 Test Item Value Reference Range Interpretation Comments Neutrophils # (test code = Neutrophils 7.2 1.5-8.1 #) [place] [address]-12-06 09:53:13 Test Item Value Reference Range Interpretation Comments Lymphocytes # (test code = Lymphocytes 0.9 1.0-5.5 #) [place] 454630-12-06 09:53:13 Test Item Value Reference Range Interpretation Comments Monocytes # (test code 0.5 See_Comment [Aut omated message] The = Monocytes #) system which generated this result tra nsmitted reference range : <=0.8. The reference r christiano was not used to int erpret this result as normal/abnormal . [facility]WjejccjPWSIOIPMAK7798-05-98 09:53:13 Test Item Value Reference Range Interpretation Comments Basophils # (test code 0.1 See_Comment [Aut omated message] The = Basophils #) system which generated this result tra nsmitted reference range : <=0.2. The reference r christiano was not used to int erpret this result as normal/abnormal . [facility] HospitalYiacyhfDQFMUGGEHU6734-21-93 09:53:13 Test Item Value Reference Range Interpretation Comments Segs (test code = Segs) 83.0 45.0-75.0 [place] 454630-12-06 09:53:13 Test Item Value Reference Range Interpretation Comments Bands (test code = 0.0 See_Comment [Automat ed message] The Bands) system which ge nerated this result transmit sheba reference range : <=11.0. The reference r christiano was not used to interpr et this result as edy l/abnormal. [facility] HospitalFsykcvjQVVJFOFVZF4433-44-86 09:53:13 Test Item Value Reference Range Interpretation Comments Lymphocytes (test code = Lymphocytes) 10.0 20.0-40.0 [place] 454630-12-06 09:53:13 Test Item Value Reference Range Interpretation Comments Monocytes (test code = Monocytes) 6.0 2.0-12.0 [facility]GzdwbgePYSCUELVRN3840-68-99 09:53:13 Test Item Value Reference Range Interpretation Comments Basophils (test code = 1.0 See_Comment [Aut omated message] The Basophils) system which ge nerated this result tra nsmitted reference range : <=1.0. The reference r christiano was not used to int erpret this result as normal/abnormal . [facility]XspzgizDAIHBVZDVT4324-60-18 09:53:13 Test Item Value Reference Range Interpretation Comments Atypical Lymphs (test code = Atypical 0.0 Lymphs) [place] 454630-12-06 09:53:13 Test Item Value Reference Range Interpretation Comments RBC Morph (test code = Normal (09/05/20 3:53 RBC Morph) AM) [place] 454630-12-06 09:53:13 Test Item Value Reference Range Interpretation Comments Plt Morph (test code = Normal (09/05/20 3:53 Plt Morph) AM) [facility]2020-12-06 09:53:13 Test Item Value Reference Range Interpretation Comments Magnesium Lvl (test code = Magnesium 2.2 1.8-2.4 Lvl) [place] 280900-12-06 09:53:13 Test Item Value Reference Range Interpretation Comments Phosphorus (test code = Phosphorus) 2.9 2.5-4.5 [place] 280900-12-06 09:53:13 Test Item Value Reference Range Interpretation Comments Glucose Lvl (test code = Glucose Lvl) 102 70-99 [place] 280900-12-06 09:53:13 Test Item Value Reference Range Interpretation Comments BUN (test code = BUN) 17 7-22 [place] 280900-12-06 09:53:13 Test Item Value Reference Range Interpretation Comments Creatinine Lvl (test code = Creatinine 1.51 0.50-1.40 Lvl) [place] 280900-12-06 09:53:13 Test Item Value Reference Range Interpretation Comments Sodium Lvl (test code = Sodium Lvl) 140 135-145 [place] 280900-12-06 09:53:13 Test Item Value Reference Range Interpretation Comments Potassium Lvl (test code = Potassium 3.5 3.5-5.1 Lvl) [place] 280900-12-06 09:53:13 Test Item Value Reference Range Interpretation Comments Chloride Lvl (test code = Chloride Lvl) 106 95-109 [place] 280900-12-06 09:53:13 Test Item Value Reference Range Interpretation Comments CO2 (test code = CO2) 29 24-32 [place] 280900-12-06 09:53:13 Test Item Value Reference Range Interpretation Comments Calcium Lvl (test code = Calcium Lvl) 8.3 8.5-10.5 [place] 280900-12-06 09:53:13 Test Item Value Reference Range Interpretation Comments AGAP (test code = AGAP) 8.5 10.0-20.0 [place] [address]-12-06 09:53:13 Test Item Value Reference Range Interpretation Comments eGFR (test code = eGFR) 33 [place] [address]-12-06 09:53:13 Test Item Value Reference Range Interpretation Comments WBC (test code = WBC) 8.7 3.7-10.4 [place] 454630-12-06 09:53:13 Test Item Value Reference Range Interpretation Comments RBC (test code = RBC) 3.96 4.20-5.40 [place] [address]-12-06 09:53:13 Test Item Value Reference Range Interpretation Comments Hgb (test code = Hgb) 10.7 12.0-16.0 [place] [address]-12-06 09:53:13 Test Item Value Reference Range Interpretation Comments Hct (test code = Hct) 32.8 36.0-48.0 [place] [address]-12-06 09:53:13 Test Item Value Reference Range Interpretation Comments MCV (test code = MCV) 83.0 80.0-98.0 [place] [address]-12-06 09:53:13 Test Item Value Reference Range Interpretation Comments MCH (test code = MCH) 26.9 pg 27.0-31.0 [place] 454630-12-06 09:53:13 Test Item Value Reference Range Interpretation Comments MCHC (test code = MCHC) 32.4 32.0-36.0 [place] 454630-12-06 09:53:13 Test Item Value Reference Range Interpretation Comments RDW (test code = RDW) 16.5 11.5-14.5 [place] [address]-12-06 09:53:13 Test Item Value Reference Range Interpretation Comments Platelet (test code = Platelet) 157 133-450 [place] 454630-12-06 09:53:13 Test Item Value Reference Range Interpretation Comments MPV (test code = MPV) 7.5 7.4-10.4 [place] [address]-12-06 09:53:13 Test Item Value Reference Range Interpretation Comments Neutrophils # (test code = Neutrophils 7.2 1.5-8.1 #) [place] [address]-12-06 09:53:13 Test Item Value Reference Range Interpretation Comments Lymphocytes # (test code = Lymphocytes 0.9 1.0-5.5 #) [place] [address]-12-06 09:53:13 Test Item Value Reference Range Interpretation Comments Monocytes # (test code 0.5 See_Comment [Aut omated message] The = Monocytes #) system which generated this result tra nsmitted reference range : <=0.8. The reference r christiano was not used to int erpret this result as normal/abnormal . [facility]MlujgirKOHAIZKHOZ4417-70-48 09:53:13 Test Item Value Reference Range Interpretation Comments Basophils # (test code 0.1 See_Comment [Aut omated message] The = Basophils #) system which generated this result tra nsmitted reference range : <=0.2. The reference r christiano was not used to int erpret this result as normal/abnormal . [facility] HospitalLwlemtwPXGZSBTKEU9112-69-84 09:53:13 Test Item Value Reference Range Interpretation Comments Segs (test code = Segs) 83.0 45.0-75.0 [place] 454630-12-06 09:53:13 Test Item Value Reference Range Interpretation Comments Bands (test code = 0.0 See_Comment [Automat ed message] The Bands) system which ge nerated this result transmit sheba reference range : <=11.0. The reference r christiano was not used to interpr et this result as edy l/abnormal. [facility] HospitalOzhaxfdZRTBTPRQPU4335-60-64 09:53:13 Test Item Value Reference Range Interpretation Comments Lymphocytes (test code = Lymphocytes) 10.0 20.0-40.0 [place] 454630-12-06 09:53:13 Test Item Value Reference Range Interpretation Comments Monocytes (test code = Monocytes) 6.0 2.0-12.0 [place] 454630-12-06 09:53:13 Test Item Value Reference Range Interpretation Comments Basophils (test code = 1.0 See_Comment [Aut omated message] The Basophils) system which ge nerated this result tra nsmitted reference range : <=1.0. The reference r christiano was not used to int erpret this result as normal/abnormal . [facility] HospitalVmorrgxWLFHHYELSE5290-28-09 09:53:13 Test Item Value Reference Range Interpretation Comments Atypical Lymphs (test code = Atypical 0.0 Lymphs) [facility]LoqrydjULXSQLKUKH2119-12-05 09:53:13 Test Item Value Reference Range Interpretation Comments RBC Morph (test code = Normal (09/05/20 3:53 RBC Morph) AM) [facility]zlmufsFQCBSMJXSF5674-33-02 09:53:13 Test Item Value Reference Range Interpretation Comments Plt Morph (test code = Normal (09/05/20 3:53 Plt Morph) AM) [place] 280900-12-06 09:53:13 Test Item Value Reference Range Interpretation Comments Magnesium Lvl (test code = Magnesium 2.2 1.8-2.4 Lvl) [place] 280900-12-06 09:53:13 Test Item Value Reference Range Interpretation Comments Phosphorus (test code = Phosphorus) 2.9 2.5-4.5 [place] [address]-12-06 09:53:13 Test Item Value Reference Range Interpretation Comments Glucose Lvl (test code = Glucose Lvl) 102 70-99 [place] 280900-12-06 09:53:13 Test Item Value Reference Range Interpretation Comments BUN (test code = BUN) 17 7-22 [place] 280900-12-06 09:53:13 Test Item Value Reference Range Interpretation Comments Creatinine Lvl (test code = Creatinine 1.51 0.50-1.40 Lvl) [place] 280900-12-06 09:53:13 Test Item Value Reference Range Interpretation Comments Sodium Lvl (test code = Sodium Lvl) 140 135-145 [place] 280900-12-06 09:53:13 Test Item Value Reference Range Interpretation Comments Potassium Lvl (test code = Potassium 3.5 3.5-5.1 Lvl) [place] 280900-12-06 09:53:13 Test Item Value Reference Range Interpretation Comments Chloride Lvl (test code = Chloride Lvl) 106 95-109 [place] [address]-12-06 09:53:13 Test Item Value Reference Range Interpretation Comments CO2 (test code = CO2) 29 24-32 [place] 280900-12-06 09:53:13 Test Item Value Reference Range Interpretation Comments Calcium Lvl (test code = Calcium Lvl) 8.3 8.5-10.5 [place] 280900-12-06 09:53:13 Test Item Value Reference Range Interpretation Comments AGAP (test code = AGAP) 8.5 10.0-20.0 [place] 280900-12-06 09:53:13 Test Item Value Reference Range Interpretation Comments eGFR (test code = eGFR) 33 [place] [address]-12-06 09:53:13 Test Item Value Reference Range Interpretation Comments WBC (test code = WBC) 8.7 3.7-10.4 [place] [address]-12-06 09:53:13 Test Item Value Reference Range Interpretation Comments RBC (test code = RBC) 3.96 4.20-5.40 [place] [address]-12-06 09:53:13 Test Item Value Reference Range Interpretation Comments Hgb (test code = Hgb) 10.7 12.0-16.0 [place] [address]-12-06 09:53:13 Test Item Value Reference Range Interpretation Comments Hct (test code = Hct) 32.8 36.0-48.0 [place] [address]-12-06 09:53:13 Test Item Value Reference Range Interpretation Comments MCV (test code = MCV) 83.0 80.0-98.0 [place] [address]-12-06 09:53:13 Test Item Value Reference Range Interpretation Comments MCH (test code = MCH) 26.9 pg 27.0-31.0 [place] [address]-12-06 09:53:13 Test Item Value Reference Range Interpretation Comments MCHC (test code = MCHC) 32.4 32.0-36.0 [place] [address]-12-06 09:53:13 Test Item Value Reference Range Interpretation Comments RDW (test code = RDW) 16.5 11.5-14.5 [place] [address]-12-06 09:53:13 Test Item Value Reference Range Interpretation Comments Platelet (test code = Platelet) 157 133-450 [place] [address]-12-06 09:53:13 Test Item Value Reference Range Interpretation Comments MPV (test code = MPV) 7.5 7.4-10.4 [place] [address]-12-06 09:53:13 Test Item Value Reference Range Interpretation Comments Neutrophils # (test code = Neutrophils 7.2 1.5-8.1 #) [place] 454630-12-06 09:53:13 Test Item Value Reference Range Interpretation Comments Lymphocytes # (test code = Lymphocytes 0.9 1.0-5.5 #) [facility] Test Item Value Reference Range Interpretation Comments Monocytes # (test code 0.5 See_Comment [Aut omated message] The = Monocytes #) system which generated this result tra nsmitted reference range : <=0.8. The reference r christiano was not used to int erpret this result as normal/abnormal . [facility]AgozjvfDYXSACZKXI7366-68-02 09:53:13 Test Item Value Reference Range Interpretation Comments Basophils # (test code 0.1 See_Comment [Aut omated message] The = Basophils #) system which generated this result tra nsmitted reference range : <=0.2. The reference r christiano was not used to int erpret this result as normal/abnormal . [facility]LxmdlmuYPCOFJIVCT9154-98-49 09:53:13 Test Item Value Reference Range Interpretation Comments Segs (test code = Segs) 83.0 45.0-75.0 [place] 454630-12-06 09:53:13 Test Item Value Reference Range Interpretation Comments Bands (test code = 0.0 See_Comment [Automat ed message] The Bands) system which ge nerated this result transmit sheba reference range : <=11.0. The reference r christiano was not used to interpr et this result as edy l/abnormal. [facility]YokuqkuYOVLOXCMAB6091-70-69 09:53:13 Test Item Value Reference Range Interpretation Comments Lymphocytes (test code = Lymphocytes) 10.0 20.0-40.0 [place] 454630-12-06 09:53:13 Test Item Value Reference Range Interpretation Comments Monocytes (test code = Monocytes) 6.0 2.0-12.0 [place] [address]-12-06 09:53:13 Test Item Value Reference Range Interpretation Comments Basophils (test code = 1.0 See_Comment [Aut omated message] The Basophils) system which ge nerated this result tra nsmitted reference range : <=1.0. The reference r christiano was not used to int erpret this result as normal/abnormal . [facility]BzsdzmcEZUQZCSDIE4730-01-85 09:53:13 Test Item Value Reference Range Interpretation Comments Atypical Lymphs (test code = Atypical 0.0 Lymphs) [place] [address]-12-06 09:53:13 Test Item Value Reference Range Interpretation Comments RBC Morph (test code = Normal (09/05/20 3:53 RBC Morph) AM) [place] [address]-12-06 09:53:13 Test Item Value Reference Range Interpretation Comments Plt Morph (test code = Normal (09/05/20 3:53 Plt Morph) AM) [place] [address]-12-06 09:53:13 Test Item Value Reference Range Interpretation Comments Magnesium Lvl (test code = Magnesium 2.2 1.8-2.4 Lvl) [address]12-06 09:53:13 Test Item Value Reference Range Interpretation Comments Phosphorus (test code = Phosphorus) 2.9 2.5-4.5 [place] [address]-12-06 09:53:13 Test Item Value Reference Range Interpretation Comments Glucose Lvl (test code = Glucose Lvl) 102 70-99 [place] [address]-12-06 09:53:13 Test Item Value Reference Range Interpretation Comments BUN (test code = BUN) 17 7-22 [place] [address]-12-06 09:53:13 Test Item Value Reference Range Interpretation Comments Creatinine Lvl (test code = Creatinine 1.51 0.50-1.40 Lvl) [place] [address]-12-06 09:53:13 Test Item Value Reference Range Interpretation Comments Sodium Lvl (test code = Sodium Lvl) 140 135-145 [place] [address]-12-06 09:53:13 Test Item Value Reference Range Interpretation Comments Potassium Lvl (test code = Potassium 3.5 3.5-5.1 Lvl) [place] [address]-12-06 09:53:13 Test Item Value Reference Range Interpretation Comments Chloride Lvl (test code = Chloride Lvl) 106 95-109 [place] [address]-12-06 09:53:13 Test Item Value Reference Range Interpretation Comments CO2 (test code = CO2) 29 24-32 [place] [address]-12-06 09:53:13 Test Item Value Reference Range Interpretation Comments Calcium Lvl (test code = Calcium Lvl) 8.3 8.5-10.5 [place] [address]-12-06 09:53:13 Test Item Value Reference Range Interpretation Comments AGAP (test code = AGAP) 8.5 10.0-20.0 [facility]2020-12-06 09:53:13 Test Item Value Reference Range Interpretation Comments eGFR (test code = eGFR) 33 [facility]VuxpunbOKRGEMHDJY8733-73-03 09:53:13 Test Item Value Reference Range Interpretation Comments WBC (test code = WBC) 8.7 3.7-10.4 [facility]CajvfflVLMISIUQXG0711-93-05 09:53:13 Test Item Value Reference Range Interpretation Comments RBC (test code = RBC) 3.96 4.20-5.40 [facility]XvrptbgWPVJYUGTCE5750-88-61 09:53:13 Test Item Value Reference Range Interpretation Comments Hgb (test code = Hgb) 10.7 12.0-16.0 [place] [address]-12-06 09:53:13 Test Item Value Reference Range Interpretation Comments Hct (test code = Hct) 32.8 36.0-48.0 [facility]CbfbnfkCQWYAWKFIK0558-36-82 09:53:13 Test Item Value Reference Range Interpretation Comments MCV (test code = MCV) 83.0 80.0-98.0 [place] [address]-12-06 09:53:13 Test Item Value Reference Range Interpretation Comments MCH (test code = MCH) 26.9 pg 27.0-31.0 [facility] HospitalGniejpvYMVJADYVIM4030-19-64 09:53:13 Test Item Value Reference Range Interpretation Comments MCHC (test code = MCHC) 32.4 32.0-36.0 [facility] HospitalHlkvubhVREIYQKVPX5648-88-09 09:53:13 Test Item Value Reference Range Interpretation Comments RDW (test code = RDW) 16.5 11.5-14.5 [place] [address]-12-06 09:53:13 Test Item Value Reference Range Interpretation Comments Platelet (test code = Platelet) 157 133-450 [place] [address]-12-06 09:53:13 Test Item Value Reference Range Interpretation Comments MPV (test code = MPV) 7.5 7.4-10.4 [place] 454630-12-06 09:53:13 Test Item Value Reference Range Interpretation Comments Neutrophils # (test code = Neutrophils 7.2 1.5-8.1 #) [place] [address]-12-06 09:53:13 Test Item Value Reference Range Interpretation Comments Lymphocytes # (test code = Lymphocytes 0.9 1.0-5.5 #) [place] [address]-12-06 09:53:13 Test Item Value Reference Range Interpretation Comments Monocytes # (test code 0.5 See_Comment [Aut omated message] The = Monocytes #) system which generated this result tra nsmitted reference range : <=0.8. The reference r christiano was not used to int erpret this result as normal/abnormal . [place] [address]-12-06 09:53:13 Test Item Value Reference Range Interpretation Comments Basophils # (test code 0.1 See_Comment [Aut omated message] The = Basophils #) system which generated this result tra nsmitted reference range : <=0.2. The reference r christiano was not used to int erpret this result as normal/abnormal . [place] [address]-12-06 09:53:13 Test Item Value Reference Range Interpretation Comments Segs (test code = Segs) 83.0 45.0-75.0 [place] [address]-12-06 09:53:13 Test Item Value Reference Range Interpretation Comments Bands (test code = 0.0 See_Comment [Automat ed message] The Bands) system which ge nerated this result transmit sheba reference range : <=11.0. The reference r christiano was not used to interpr et this result as edy l/abnormal. [facility] HospitalGfqrjnmNBLFDQVLUV5118-97-25 09:53:13 Test Item Value Reference Range Interpretation Comments Lymphocytes (test code = Lymphocytes) 10.0 20.0-40.0 [place] [address]-12-06 09:53:13 Test Item Value Reference Range Interpretation Comments Monocytes (test code = Monocytes) 6.0 2.0-12.0 [place] [address]-12-06 09:53:13 Test Item Value Reference Range Interpretation Comments Basophils (test code = 1.0 See_Comment [Aut omated message] The Basophils) system which ge nerated this result tra nsmitted reference range : <=1.0. The reference r christiano was not used to int erpret this result as normal/abnormal . [place] [address]-12-06 09:53:13 Test Item Value Reference Range Interpretation Comments Atypical Lymphs (test code = Atypical 0.0 Lymphs) [address]12-06 09:53:13 Test Item Value Reference Range Interpretation Comments RBC Morph (test code = Normal (09/05/20 3:53 RBC Morph) AM) [address]12-06 09:53:13 Test Item Value Reference Range Interpretation Comments Plt Morph (test code = Normal (09/05/20 3:53 Plt Morph) AM) [place] [address]-12-06 09:53:13 Test Item Value Reference Range Interpretation Comments Magnesium Lvl (test code = Magnesium 2.2 1.8-2.4 Lvl) [address]12-06 09:53:13 Test Item Value Reference Range Interpretation Comments Phosphorus (test code = Phosphorus) 2.9 2.5-4.[address]12-06 09:53:13 Test Item Value Reference Range Interpretation Comments Glucose Lvl (test code = Glucose Lvl) 102 70-99 [place] [address]-12-06 09:53:13 Test Item Value Reference Range Interpretation Comments BUN (test code = BUN) 17 7-22 [place] [address]-12-06 09:53:13 Test Item Value Reference Range Interpretation Comments Creatinine Lvl (test code = Creatinine 1.51 0.50-1.40 Lvl) [address]12-06 09:53:13 Test Item Value Reference Range Interpretation Comments Sodium Lvl (test code = Sodium Lvl) 140 135-145 [place] [address]-12-06 09:53:13 Test Item Value Reference Range Interpretation Comments Potassium Lvl (test code = Potassium 3.5 3.5-5.1 Lvl) [address]12-06 09:53:13 Test Item Value Reference Range Interpretation Comments Chloride Lvl (test code = Chloride Lvl) 106 95-109 [place] [address]-12-06 09:53:13 Test Item Value Reference Range Interpretation Comments CO2 (test code = CO2) 29 24-32 [address]12-06 09:53:13 Test Item Value Reference Range Interpretation Comments Calcium Lvl (test code = Calcium Lvl) 8.3 8.5-10.5 [facility]2020-12-06 09:53:13 Test Item Value Reference Range Interpretation Comments AGAP (test code = AGAP) 8.5 10.0-20.0 [facility]2020-12-06 09:53:13 Test Item Value Reference Range Interpretation Comments eGFR (test code = eGFR) 33 [place] [address]-12-06 09:53:13 Test Item Value Reference Range Interpretation Comments WBC (test code = WBC) 8.7 3.7-10.4 [place] [address]-12-06 09:53:13 Test Item Value Reference Range Interpretation Comments RBC (test code = RBC) 3.96 4.20-5.40 [place] [address]-12-06 09:53:13 Test Item Value Reference Range Interpretation Comments Hgb (test code = Hgb) 10.7 12.0-16.0 [place] [address]-12-06 09:53:13 Test Item Value Reference Range Interpretation Comments Hct (test code = Hct) 32.8 36.0-48.0 [place] [address]-12-06 09:53:13 Test Item Value Reference Range Interpretation Comments MCV (test code = MCV) 83.0 80.0-98.0 [place] [address]-12-06 09:53:13 Test Item Value Reference Range Interpretation Comments MCH (test code = MCH) 26.9 pg 27.0-31.0 [place] [address]-12-06 09:53:13 Test Item Value Reference Range Interpretation Comments MCHC (test code = MCHC) 32.4 32.0-36.0 [place] [address]-12-06 09:53:13 Test Item Value Reference Range Interpretation Comments RDW (test code = RDW) 16.5 11.5-14.5 [place] [address]-12-06 09:53:13 Test Item Value Reference Range Interpretation Comments Platelet (test code = Platelet) 157 133-450 [place] [address]-12-06 09:53:13 Test Item Value Reference Range Interpretation Comments MPV (test code = MPV) 7.5 7.4-10.4 [place] [address]-12-06 09:53:13 Test Item Value Reference Range Interpretation Comments Neutrophils # (test code = Neutrophils 7.2 1.5-8.1 #) [facility]HunkmgnFLAGZJSSWH8188-17-78 09:53:13 Test Item Value Reference Range Interpretation Comments Lymphocytes # (test code = Lymphocytes 0.9 1.0-5.5 #) [facility]TitdsyvKMVAINXQJH0590-37-30 09:53:13 Test Item Value Reference Range Interpretation Comments Monocytes # (test code 0.5 See_Comment [Aut omated message] The = Monocytes #) system which generated this result tra nsmitted reference range : <=0.8. The reference r christiano was not used to int erpret this result as normal/abnormal . [facility] HospitalZbvtlgaXUIZTGNWMD9917-15-88 09:53:13 Test Item Value Reference Range Interpretation Comments Basophils # (test code 0.1 See_Comment [Aut omated message] The = Basophils #) system which generated this result tra nsmitted reference range : <=0.2. The reference r christiano was not used to int erpret this result as normal/abnormal . [facility]KpiemscWPMPAUWFFN0677-01-12 09:53:13 Test Item Value Reference Range Interpretation Comments Segs (test code = Segs) 83.0 45.0-75.0 [facility]AhhobsmJWXOQHTQKH7708-69-58 09:53:13 Test Item Value Reference Range Interpretation Comments Bands (test code = 0.0 See_Comment [Automat ed message] The Bands) system which ge nerated this result transmit sheba reference range : <=11.0. The reference r christiano was not used to interpr et this result as edy l/abnormal. [facility] HospitalMwyquyiZNKKCCDDWU6825-89-67 09:53:13 Test Item Value Reference Range Interpretation Comments Lymphocytes (test code = Lymphocytes) 10.0 20.0-40.0 [place] [address]-12-06 09:53:13 Test Item Value Reference Range Interpretation Comments Monocytes (test code = Monocytes) 6.0 2.0-12.0 [place] [address]-12-06 09:53:13 Test Item Value Reference Range Interpretation Comments Basophils (test code = 1.0 See_Comment [Aut omated message] The Basophils) system which ge nerated this result tra nsmitted reference range : <=1.0. The reference r christiano was not used to int erpret this result as normal/abnormal . [place] [address]-12-06 09:53:13 Test Item Value Reference Range Interpretation Comments Atypical Lymphs (test code = Atypical 0.0 Lymphs) [place] [address]-12-06 09:53:13 Test Item Value Reference Range Interpretation Comments RBC Morph (test code = Normal (09/05/20 3:53 RBC Morph) AM) [place] [address]-12-06 09:53:13 Test Item Value Reference Range Interpretation Comments Plt Morph (test code = Normal (09/05/20 3:53 Plt Morph) AM) [place] [address]-12-06 09:53:13 Test Item Value Reference Range Interpretation Comments Magnesium Lvl (test code = Magnesium 2.2 1.8-2.4 Lvl) [place] [address]-12-06 09:53:13 Test Item Value Reference Range Interpretation Comments Phosphorus (test code = Phosphorus) 2.9 2.5-4.5 [place] [address]-12-06 09:53:13 Test Item Value Reference Range Interpretation Comments Glucose Lvl (test code = Glucose Lvl) 102 70-99 [place] 280900-12-06 09:53:13 Test Item Value Reference Range Interpretation Comments BUN (test code = BUN) 17 7-22 [place] [address]-12-06 09:53:13 Test Item Value Reference Range Interpretation Comments Creatinine Lvl (test code = Creatinine 1.51 0.50-1.40 Lvl) [place] [address]-12-06 09:53:13 Test Item Value Reference Range Interpretation Comments Sodium Lvl (test code = Sodium Lvl) 140 135-145 [place] [address]-12-06 09:53:13 Test Item Value Reference Range Interpretation Comments Potassium Lvl (test code = Potassium 3.5 3.5-5.1 Lvl) [place] [address]-12-06 09:53:13 Test Item Value Reference Range Interpretation Comments Chloride Lvl (test code = Chloride Lvl) 106 95-109 [place] [address]-12-06 09:53:13 Test Item Value Reference Range Interpretation Comments CO2 (test code = CO2) 29 24-32 [place] 280900-12-06 09:53:13 Test Item Value Reference Range Interpretation Comments Calcium Lvl (test code = Calcium Lvl) 8.3 8.5-10.5 [place] 280900-12-06 09:53:13 Test Item Value Reference Range Interpretation Comments AGAP (test code = AGAP) 8.5 10.0-20.0 [place] 280900-12-06 09:53:13 Test Item Value Reference Range Interpretation Comments eGFR (test code = eGFR) 33 [place] [address]-12-06 09:53:13 Test Item Value Reference Range Interpretation Comments WBC (test code = WBC) 8.7 3.7-10.4 [place] [address]-12-06 09:53:13 Test Item Value Reference Range Interpretation Comments RBC (test code = RBC) 3.96 4.20-5.40 [place] [address]-12-06 09:53:13 Test Item Value Reference Range Interpretation Comments Hgb (test code = Hgb) 10.7 12.0-16.0 [place] [address]-12-06 09:53:13 Test Item Value Reference Range Interpretation Comments Hct (test code = Hct) 32.8 36.0-48.0 [place] [address]-12-06 09:53:13 Test Item Value Reference Range Interpretation Comments MCV (test code = MCV) 83.0 80.0-98.0 [place] [address]-12-06 09:53:13 Test Item Value Reference Range Interpretation Comments MCH (test code = MCH) 26.9 pg 27.0-31.0 [place] 454630-12-06 09:53:13 Test Item Value Reference Range Interpretation Comments MCHC (test code = MCHC) 32.4 32.0-36.0 [place] [address]-12-06 09:53:13 Test Item Value Reference Range Interpretation Comments RDW (test code = RDW) 16.5 11.5-14.5 [place] [address]-12-06 09:53:13 Test Item Value Reference Range Interpretation Comments Platelet (test code = Platelet) 157 133-450 [place] 454630-12-06 09:53:13 Test Item Value Reference Range Interpretation Comments MPV (test code = MPV) 7.5 7.4-10.4 [place] [address]-12-06 09:53:13 Test Item Value Reference Range Interpretation Comments Neutrophils # (test code = Neutrophils 7.2 1.5-8.1 #) [place] 454630-12-06 09:53:13 Test Item Value Reference Range Interpretation Comments Lymphocytes # (test code = Lymphocytes 0.9 1.0-5.5 #) [place] [address]-12-06 09:53:13 Test Item Value Reference Range Interpretation Comments Monocytes # (test code 0.5 See_Comment [Aut omated message] The = Monocytes #) system which generated this result tra nsmitted reference range : <=0.8. The reference r christiano was not used to int erpret this result as normal/abnormal . [place] [address]-12-06 09:53:13 Test Item Value Reference Range Interpretation Comments Basophils # (test code 0.1 See_Comment [Aut omated message] The = Basophils #) system which generated this result tra nsmitted reference range : <=0.2. The reference r christiano was not used to int erpret this result as normal/abnormal . [facility] HospitalSocijlxXQSBJYYARD5584-20-85 09:53:13 Test Item Value Reference Range Interpretation Comments Segs (test code = Segs) 83.0 45.0-75.0 [place] [address]-12-06 09:53:13 Test Item Value Reference Range Interpretation Comments Bands (test code = 0.0 See_Comment [Automat ed message] The Bands) system which ge nerated this result transmit sheba reference range : <=11.0. The reference r christiano was not used to interpr et this result as edy l/abnormal. [facility]VqhutqmUHYTDGRVXM1225-06-22 09:53:13 Test Item Value Reference Range Interpretation Comments Lymphocytes (test code = Lymphocytes) 10.0 20.0-40.0 [place] [address]-12-06 09:53:13 Test Item Value Reference Range Interpretation Comments Monocytes (test code = Monocytes) 6.0 2.0-12.0 [place] [address]-12-06 09:53:13 Test Item Value Reference Range Interpretation Comments Basophils (test code = 1.0 See_Comment [Aut omated message] The Basophils) system which ge nerated this result tra nsmitted reference range : <=1.0. The reference r christiano was not used to int erpret this result as normal/abnormal . [facility] HospitalUsmltgnTTHVEFEESC4212-26-07 09:53:13 Test Item Value Reference Range Interpretation Comments Atypical Lymphs (test code = Atypical 0.0 Lymphs) [place] 454630-12-06 09:53:13 Test Item Value Reference Range Interpretation Comments RBC Morph (test code = Normal (09/05/20 3:53 RBC Morph) AM) [place] [address]-12-06 09:53:13 Test Item Value Reference Range Interpretation Comments Plt Morph (test code = Normal (09/05/20 3:53 Plt Morph) AM) [place] [address]-12-06 09:53:00 Test Item Value Reference Range Interpretation Comments Coronavirus (COVID-19) Not Detected (09/05/20 JONATHAN (test code = 3:53 AM) Coronavirus (COVID-19) JONATHAN) [place] [address]-12-06 09:53:00 Test Item Value Reference Range Interpretation Comments Coronavirus (COVID-19) Not Detected (09/05/20 JONATHAN (test code = 3:53 AM) Coronavirus (COVID-19) JONATHAN) [place] [address]-12-06 09:53:00 Test Item Value Reference Range Interpretation Comments Coronavirus (COVID-19) Not Detected (09/05/20 JONATHAN (test code = 3:53 AM) Coronavirus (COVID-19) JONATHAN) [place] [address]-12-06 09:53:00 Test Item Value Reference Range Interpretation Comments Coronavirus (COVID-19) Not Detected (09/05/20 JONATHAN (test code = 3:53 AM) Coronavirus (COVID-19) JONATHAN) [place] [address]-12-06 09:53:00 Test Item Value Reference Range Interpretation Comments Coronavirus (COVID-19) Not Detected (09/05/20 JONATHAN (test code = 3:53 AM) Coronavirus (COVID-19) JONATHAN) [place] [address]-12-06 09:53:00 Test Item Value Reference Range Interpretation Comments Coronavirus (COVID-19) Not Detected (09/05/20 JONATHAN (test code = 3:53 AM) Coronavirus (COVID-19) JONATHAN) [facility] ChildrenWeurcsqRBQSMHPGAV3312-55-64 09:53:00 Test Item Value Reference Range Interpretation Comments Coronavirus (COVID-19) Not Detected (09/05/20 JONATHAN (test code = 3:53 AM) Coronavirus (COVID-19) JONATHAN) [facility] ChildrenCARDIAC [id number] 04:34:00 Test Item Value Reference Range Interpretation Comments Troponin-I (test code no gt See_Comment [Auto mated message] The = Troponin-I) system which g enerated this result transmit sheba reference range : <=0.40. The reference r christiano was not used to interpr et this result as edy l/abnormal. [facility] [id number] 04:34:00 Test Item Value Reference Range Interpretation Comments Glucose Lvl (test code = Glucose Lvl) 125 70-99 [facility] [id number] 04:34:00 Test Item Value Reference Range Interpretation Comments BUN (test code = BUN) 17 7-22 [facility]2020-12-06 04:34:00 Test Item Value Reference Range Interpretation Comments Creatinine Lvl (test code = Creatinine 1.51 0.50-1.40 Lvl) [facility] [id number] 04:34:00 Test Item Value Reference Range Interpretation Comments Sodium Lvl (test code = Sodium Lvl) 142 135-145 [facility]2020-12-06 04:34:00 Test Item Value Reference Range Interpretation Comments Potassium Lvl (test code = Potassium 4.0 3.5-5.1 Lvl) [facility] [id number] 04:34:00 Test Item Value Reference Range Interpretation Comments Chloride Lvl (test code = Chloride Lvl) 108 95-109 [facility] [id number] 04:34:00 Test Item Value Reference Range Interpretation Comments CO2 (test code = CO2) 30 24-32 [place] 280900-12-06 04:34:00 Test Item Value Reference Range Interpretation Comments Calcium Lvl (test code = Calcium Lvl) 7.8 8.5-10.5 [facility] [id number] 04:34:00 Test Item Value Reference Range Interpretation Comments AGAP (test code = AGAP) 8.0 10.0-20.0 [facility]2020-12-06 04:34:00 Test Item Value Reference Range Interpretation Comments eGFR (test code = eGFR) 33 [facility]Zd[facility]nzjSJEFYECGCD0732-31-62 04:34:00 Test Item Value Reference Range Interpretation Comments WBC X 10x3 (test code = WBC X 10x3) 9.7 3.7-10.4 [facility]GmjaalwQQVVKMJOQH7246-03-00 04:34:00 Test Item Value Reference Range Interpretation Comments RBC X 10x6 (test code = RBC X 10x6) 3.96 4.20-5.40 [facility]YnxywsuYDPJPHSTZM2791-21-91 04:34:00 Test Item Value Reference Range Interpretation Comments Hgb (test code = Hgb) 10.6 12.0-16.0 [facility]LturtcoWTEJQEQTFM1598-37-69 04:34:00 Test Item Value Reference Range Interpretation Comments Hct (test code = Hct) 32.6 36.0-48.0 [facility] HospitalChvokogFALLCHGUPA5699-04-70 04:34:00 Test Item Value Reference Range Interpretation Comments MCV (test code = MCV) 82.3 80.0-98.0 [facility] HospitalOcosxgnPJWNDJRXNS1563-81-37 04:34:00 Test Item Value Reference Range Interpretation Comments MCH (test code = MCH) 26.6 pg 27.0-31.0 [facility] HospitalFnbwvdiGNLPFKXQLS8722-23-41 04:34:00 Test Item Value Reference Range Interpretation Comments MCHC (test code = MCHC) 32.4 32.0-36.0 [facility] HospitalRwttskoLIBGFKZRGV5845-39-76 04:34:00 Test Item Value Reference Range Interpretation Comments RDW (test code = RDW) 16.8 11.5-14.5 [place] 454630-12-06 04:34:00 Test Item Value Reference Range Interpretation Comments Platelet (test code = Platelet) 178 133-450 [facility] HospitalTcdddbgWGFULVOIGP5327-57-47 04:34:00 Test Item Value Reference Range Interpretation Comments MPV (test code = MPV) 8.0 7.4-10.4 [facility] HospitalSccnjhaYQZURUBXOK9677-86-09 04:34:00 Test Item Value Reference Range Interpretation Comments PT (test code = PT) 14.7 s 12.0-14.7 [place] [address]-12-06 04:34:00 Test Item Value Reference Range Interpretation Comments INR (test code = INR) 1.14 1 0.85-1.17 [place] [address]-12-06 04:34:00 Test Item Value Reference Range Interpretation Comments PTT (test code = PTT) 31.2 s 22.9-35.8 [place] 454630-12-06 04:34:00 Test Item Value Reference Range Interpretation Comments Segs (test code = Segs) 73.9 45.0-75.0 [place] [address]-12-06 04:34:00 Test Item Value Reference Range Interpretation Comments Lymphocytes (test code = Lymphocytes) 11.0 20.0-40.0 [place] [address]-12-06 04:34:00 Test Item Value Reference Range Interpretation Comments Monocytes (test code = Monocytes) 13.6 2.0-12.0 [place] [address]-12-06 04:34:00 Test Item Value Reference Range Interpretation Comments Eosinophils (test code = 0.7 See_Comment [A utomated message] The Eosinophils) system which ge nerated this result tra nsmitted reference range : <=4.0. The reference r christiano was not used to int erpret this result as normal/abnormal . [place] 454630-12-06 04:34:00 Test Item Value Reference Range Interpretation Comments Basophils (test code = 0.8 See_Comment [Aut omated message] The Basophils) system which ge nerated this result tra nsmitted reference range : <=1.0. The reference r christiano was not used to int erpret this result as normal/abnormal . [place] 454630-12-06 04:34:00 Test Item Value Reference Range Interpretation Comments Neutrophils # (test code = Neutrophils 7.2 1.5-8.1 #) [place] 454630-12-06 04:34:00 Test Item Value Reference Range Interpretation Comments Lymphocytes # (test code = Lymphocytes 1.1 1.0-5.5 #) [place] 454630-12-06 04:34:00 Test Item Value Reference Range Interpretation Comments Monocytes # (test code 1.3 See_Comment [Aut omated message] The = Monocytes #) system which generated this result tra nsmitted reference range : <=0.8. The reference r christiano was not used to int erpret this result as normal/abnormal . [facility] C[id number] 04:34:00 Test Item Value Reference Range Interpretation Comments Eosinophils # (test code 0.1 See_Comment [A utomated message] The = Eosinophils #) system whic h generated this result tra nsmitted reference range : <=0.5. The reference r christiano was not used to int erpret this result as normal/abnormal . [facility]FYJ[facility]BCNTZ0734-[facility]-54 04:34:00 Test Item Value Reference Range Interpretation Comments Basophils # (test code 0.1 See_Comment [Aut omated message] The = Basophils #) system which generated this result tra nsmitted reference range : <=0.2. The reference r christiano was not used to int erpret this result as normal/abnormal . [facility] ChildrenCARDIAC [id number] 04:34:00 Test Item Value Reference Range Interpretation Comments Troponin-I (test code no gt See_Comment [Auto mated message] The = Troponin-I) system which g enerated this result transmit sheba reference range : <=0.40. The reference r christiano was not used to interpr et this result as edy l/abnormal. [facility] [id number] 04:34:00 Test Item Value Reference Range Interpretation Comments Glucose Lvl (test code = Glucose Lvl) 125 70-99 [facility] [id number] 04:34:00 Test Item Value Reference Range Interpretation Comments BUN (test code = BUN) 17 7-22 [facility] [id number] 04:34:00 Test Item Value Reference Range Interpretation Comments Creatinine Lvl (test code = Creatinine 1.51 0.50-1.40 Lvl) [facility] [id number] 04:34:00 Test Item Value Reference Range Interpretation Comments Sodium Lvl (test code = Sodium Lvl) 142 135-145 [facility] [id number] 04:34:00 Test Item Value Reference Range Interpretation Comments Potassium Lvl (test code = Potassium 4.0 3.5-5.1 Lvl) [place] 280900-12-06 04:34:00 Test Item Value Reference Range Interpretation Comments Chloride Lvl (test code = Chloride Lvl) 108 95-109 [place] 280900-12-06 04:34:00 Test Item Value Reference Range Interpretation Comments CO2 (test code = CO2) 30 24-32 [place] 280900-12-06 04:34:00 Test Item Value Reference Range Interpretation Comments Calcium Lvl (test code = Calcium Lvl) 7.8 8.5-10.5 [place] 280900-12-06 04:34:00 Test Item Value Reference Range Interpretation Comments AGAP (test code = AGAP) 8.0 10.0-20.0 [place] 280900-12-06 04:34:00 Test Item Value Reference Range Interpretation Comments eGFR (test code = eGFR) 33 [place] 454630-12-06 04:34:00 Test Item Value Reference Range Interpretation Comments WBC X 10x3 (test code = WBC X 10x3) 9.7 3.7-10.4 [place] 454630-12-06 04:34:00 Test Item Value Reference Range Interpretation Comments RBC X 10x6 (test code = RBC X 10x6) 3.96 4.20-5.40 [place] [address]-12-06 04:34:00 Test Item Value Reference Range Interpretation Comments Hgb (test code = Hgb) 10.6 12.0-16.0 [place] [address]-12-06 04:34:00 Test Item Value Reference Range Interpretation Comments Hct (test code = Hct) 32.6 36.0-48.0 [place] [address]-12-06 04:34:00 Test Item Value Reference Range Interpretation Comments MCV (test code = MCV) 82.3 80.0-98.0 [place] [address]-12-06 04:34:00 Test Item Value Reference Range Interpretation Comments MCH (test code = MCH) 26.6 pg 27.0-31.0 [place] [address]-12-06 04:34:00 Test Item Value Reference Range Interpretation Comments MCHC (test code = MCHC) 32.4 32.0-36.0 [place] [address]-12-06 04:34:00 Test Item Value Reference Range Interpretation Comments RDW (test code = RDW) 16.8 11.5-14.5 [place] [address]-12-06 04:34:00 Test Item Value Reference Range Interpretation Comments Platelet (test code = Platelet) 178 133-450 [place] 454630-12-06 04:34:00 Test Item Value Reference Range Interpretation Comments MPV (test code = MPV) 8.0 7.4-10.4 [place] 454630-12-06 04:34:00 Test Item Value Reference Range Interpretation Comments PT (test code = PT) 14.7 s 12.0-14.7 [place] [address]-12-06 04:34:00 Test Item Value Reference Range Interpretation Comments INR (test code = INR) 1.14 1 0.85-1.17 [place] [address]-12-06 04:34:00 Test Item Value Reference Range Interpretation Comments PTT (test code = PTT) 31.2 s 22.9-35.8 [place] [address]-12-06 04:34:00 Test Item Value Reference Range Interpretation Comments Segs (test code = Segs) 73.9 45.0-75.0 [place] 454630-12-06 04:34:00 Test Item Value Reference Range Interpretation Comments Lymphocytes (test code = Lymphocytes) 11.0 20.0-40.0 [place] [address]-12-06 04:34:00 Test Item Value Reference Range Interpretation Comments Monocytes (test code = Monocytes) 13.6 2.0-12.0 [place] [address]-12-06 04:34:00 Test Item Value Reference Range Interpretation Comments Eosinophils (test code = 0.7 See_Comment [A utomated message] The Eosinophils) system which ge nerated this result tra nsmitted reference range : <=4.0. The reference r christiano was not used to int erpret this result as normal/abnormal . [place] [address]-12-06 04:34:00 Test Item Value Reference Range Interpretation Comments Basophils (test code = 0.8 See_Comment [Aut omated message] The Basophils) system which ge nerated this result tra nsmitted reference range : <=1.0. The reference r christiano was not used to int erpret this result as normal/abnormal . [facility] ChildrenVidjklkWPSVCCTXPY3501-10-26 04:34:00 Test Item Value Reference Range Interpretation Comments Neutrophils # (test code = Neutrophils 7.2 1.5-8.1 #) [facility]BnvmtpdSZUNWWVGWZ1848-71-98 04:34:00 Test Item Value Reference Range Interpretation Comments Lymphocytes # (test code = Lymphocytes 1.1 1.0-5.5 #) [facility] HospitalJiptukcZEGQKTSHLJ9733-42-36 04:34:00 Test Item Value Reference Range Interpretation Comments Monocytes # (test code 1.3 See_Comment [Aut omated message] The = Monocytes #) system which generated this result tra nsmitted reference range : <=0.8. The reference r christiano was not used to int erpret this result as normal/abnormal . [facility] HospitalCgzmflqEXVNOVHZQJ3501-89-27 04:34:00 Test Item Value Reference Range Interpretation Comments Eosinophils # (test code 0.1 See_Comment [A utomated message] The = Eosinophils #) system whic h generated this result tra nsmitted reference range : <=0.5. The reference r christiano was not used to int erpret this result as normal/abnormal . [facility] HospitalWegfgfgINOBEAYLTR4221-29-56 04:34:00 Test Item Value Reference Range Interpretation Comments Basophils # (test code 0.1 See_Comment [Aut omated message] The = Basophils #) system which generated this result tra nsmitted reference range : <=0.2. The reference r christiano was not used to int erpret this result as normal/abnormal . [facility] ChildrenCARD[facility] [id number] 04:34:00 Test Item Value Reference Range Interpretation Comments Troponin-I (test code no gt See_Comment [Auto mated message] The = Troponin-I) system which g enerated this result transmit sheba reference range : <=0.40. The reference r christiano was not used to interpr et this result as edy l/abnormal. [facility] [id number] 04:34:00 Test Item Value Reference Range Interpretation Comments Glucose Lvl (test code = Glucose Lvl) 125 70-99 [facility] [id number] 04:34:00 Test Item Value Reference Range Interpretation Comments BUN (test code = BUN) 17 7-22 [place] 280900-12-06 04:34:00 Test Item Value Reference Range Interpretation Comments Creatinine Lvl (test code = Creatinine 1.51 0.50-1.40 Lvl) [place] 280900-12-06 04:34:00 Test Item Value Reference Range Interpretation Comments Sodium Lvl (test code = Sodium Lvl) 142 135-145 [place] [address]-12-06 04:34:00 Test Item Value Reference Range Interpretation Comments Potassium Lvl (test code = Potassium 4.0 3.5-5.1 Lvl) [place] 280900-12-06 04:34:00 Test Item Value Reference Range Interpretation Comments Chloride Lvl (test code = Chloride Lvl) 108 95-109 [place] 280900-12-06 04:34:00 Test Item Value Reference Range Interpretation Comments CO2 (test code = CO2) 30 24-32 [place] 280900-12-06 04:34:00 Test Item Value Reference Range Interpretation Comments Calcium Lvl (test code = Calcium Lvl) 7.8 8.5-10.5 [place] 280900-12-06 04:34:00 Test Item Value Reference Range Interpretation Comments AGAP (test code = AGAP) 8.0 10.0-20.0 [place] 280900-12-06 04:34:00 Test Item Value Reference Range Interpretation Comments eGFR (test code = eGFR) 33 [place] [address]-12-06 04:34:00 Test Item Value Reference Range Interpretation Comments WBC X 10x3 (test code = WBC X 10x3) 9.7 3.7-10.4 [place] 454630-12-06 04:34:00 Test Item Value Reference Range Interpretation Comments RBC X 10x6 (test code = RBC X 10x6) 3.96 4.20-5.40 [place] 454630-12-06 04:34:00 Test Item Value Reference Range Interpretation Comments Hgb (test code = Hgb) 10.6 12.0-16.0 [place] [address]-12-06 04:34:00 Test Item Value Reference Range Interpretation Comments Hct (test code = Hct) 32.6 36.0-48.0 [place] 454630-12-06 04:34:00 Test Item Value Reference Range Interpretation Comments MCV (test code = MCV) 82.3 80.0-98.0 [place] 454630-12-06 04:34:00 Test Item Value Reference Range Interpretation Comments MCH (test code = MCH) 26.6 pg 27.0-31.0 [place] 454630-12-06 04:34:00 Test Item Value Reference Range Interpretation Comments MCHC (test code = MCHC) 32.4 32.0-36.0 [id number] 04:34:00 Test Item Value Reference Range Interpretation Comments RDW (test code = RDW) 16.8 11.5-14.5 [facility]JpibjvjQEMIGQZMEP6710-01-54 04:34:00 Test Item Value Reference Range Interpretation Comments Platelet (test code = Platelet) 178 133-450 [facility] HospitalYfxcaapNBIZIVFTDF5939-99-69 04:34:00 Test Item Value Reference Range Interpretation Comments MPV (test code = MPV) 8.0 7.4-10.4 [facility] HospitalHlqrmdmGCOVEHSWMC3506-18-76 04:34:00 Test Item Value Reference Range Interpretation Comments PT (test code = PT) 14.7 s 12.0-14.7 [facility] HospitalNgbewucVMZHBNWMVH0880-69-27 04:34:00 Test Item Value Reference Range Interpretation Comments INR (test code = INR) 1.14 1 0.85-1.17 [place] 454630-12-06 04:34:00 Test Item Value Reference Range Interpretation Comments PTT (test code = PTT) 31.2 s 22.9-35.8 [place] 454630-12-06 04:34:00 Test Item Value Reference Range Interpretation Comments Segs (test code = Segs) 73.9 45.0-75.0 [place] [address]-12-06 04:34:00 Test Item Value Reference Range Interpretation Comments Lymphocytes (test code = Lymphocytes) 11.0 20.0-40.0 [place] [address]-12-06 04:34:00 Test Item Value Reference Range Interpretation Comments Monocytes (test code = Monocytes) 13.6 2.0-12.0 [place] [address]-12-06 04:34:00 Test Item Value Reference Range Interpretation Comments Eosinophils (test code = 0.7 See_Comment [A utomated message] The Eosinophils) system which ge nerated this result tra nsmitted reference range : <=4.0. The reference r christiano was not used to int erpret this result as normal/abnormal . [facility] HospitalIdqrmuyGTAVOEFDBI2835-45-73 04:34:00 Test Item Value Reference Range Interpretation Comments Basophils (test code = 0.8 See_Comment [Aut omated message] The Basophils) system which ge nerated this result tra nsmitted reference range : <=1.0. The reference r christiano was not used to int erpret this result as normal/abnormal . [facility] HospitalLbpnxiaRPKUZZQIXC5828-69-73 04:34:00 Test Item Value Reference Range Interpretation Comments Neutrophils # (test code = Neutrophils 7.2 1.5-8.1 #) [facility] HospitalNtvctfrKJQTWNJSNB9514-65-28 04:34:00 Test Item Value Reference Range Interpretation Comments Lymphocytes # (test code = Lymphocytes 1.1 1.0-5.5 #) [facility] HospitalHrizetpQLPOGDIBEJ8613-76-94 04:34:00 Test Item Value Reference Range Interpretation Comments Monocytes # (test code 1.3 See_Comment [Aut omated message] The = Monocytes #) system which generated this result tra nsmitted reference range : <=0.8. The reference r christiano was not used to int erpret this result as normal/abnormal . [facility] HospitalEgbrdxvEJKQSUJWZY8739-88-41 04:34:00 Test Item Value Reference Range Interpretation Comments Eosinophils # (test code 0.1 See_Comment [A utomated message] The = Eosinophils #) system [facility] h generated this result tra nsmitted reference range : <=0.5. The reference r christiano was not used to int erpret this result as normal/abnormal . [facility] HospitalJxfijlpHNEAFPBNNK9756-14-35 04:34:00 Test Item Value Reference Range Interpretation Comments Basophils # (test code 0.1 See_Comment [Aut omated message] The = Basophils #) system which generated this result tra nsmitted reference range : <=0.2. The reference r christiano was not used to int erpret this result as normal/abnormal . [facility] [id number] 04:34:00 Test Item Value Reference Range Interpretation Comments Troponin-I (test code no gt See_Comment [Auto mated message] The = Troponin-I) system which g enerated this result transmit sheba reference range : <=0.40. The reference r christiano was not used to interpr et this result as edy l/abnormal. [facility]2020-12-06 04:34:00 Test Item Value Reference Range Interpretation Comments Glucose Lvl (test code = Glucose Lvl) 125 70-99 [place] 280900-12-06 04:34:00 Test Item Value Reference Range Interpretation Comments BUN (test code = BUN) 17 7-22 [place] [address]-12-06 04:34:00 Test Item Value Reference Range Interpretation Comments Creatinine Lvl (test code = Creatinine 1.51 0.50-1.40 Lvl) [place] 280900-12-06 04:34:00 Test Item Value Reference Range Interpretation Comments Sodium Lvl (test code = Sodium Lvl) 142 135-145 [place] 280900-12-06 04:34:00 Test Item Value Reference Range Interpretation Comments Potassium Lvl (test code = Potassium 4.0 3.5-5.1 Lvl) [place] 280900-12-06 04:34:00 Test Item Value Reference Range Interpretation Comments Chloride Lvl (test code = Chloride Lvl) 108 95-109 [place] 280900-12-06 04:34:00 Test Item Value Reference Range Interpretation Comments CO2 (test code = CO2) 30 24-32 [place] 280900-12-06 04:34:00 Test Item Value Reference Range Interpretation Comments Calcium Lvl (test code = Calcium Lvl) 7.8 8.5-10.5 [place] 280900-12-06 04:34:00 Test Item Value Reference Range Interpretation Comments AGAP (test code = AGAP) 8.0 10.0-20.0 [place] 280900-12-06 04:34:00 Test Item Value Reference Range Interpretation Comments eGFR (test code = eGFR) 33 [place] 454630-12-06 04:34:00 Test Item Value Reference Range Interpretation Comments WBC X 10x3 (test code = WBC X 10x3) 9.7 3.7-10.4 [place] 454630-12-06 04:34:00 Test Item Value Reference Range Interpretation Comments RBC X 10x6 (test code = RBC X 10x6) 3.96 4.20-5.40 [facility]EreuvvdFQYISFCURL2112-78-44 04:34:00 Test Item Value Reference Range Interpretation Comments Hgb (test code = Hgb) 10.6 12.0-16.0 [place] 454630-12-06 04:34:00 Test Item Value Reference Range Interpretation Comments Hct (test code = Hct) 32.6 36.0-48.0 [facility] HospitalHecpaslODBVKHLFDE4678-39-46 04:34:00 Test Item Value Reference Range Interpretation Comments MCV (test code = MCV) 82.3 80.0-98.0 [facility] HospitalZvqflbgIATLGSYAPY9033-96-84 04:34:00 Test Item Value Reference Range Interpretation Comments MCH (test code = MCH) 26.6 pg 27.0-31.0 [facility] HospitalBpbdtciSLKYNQRNXJ0104-61-09 04:34:00 Test Item Value Reference Range Interpretation Comments MCHC (test code = MCHC) 32.4 32.0-36.0 [facility] HospitalKvqdhqoMBTFLSCATQ4495-46-79 04:34:00 Test Item Value Reference Range Interpretation Comments RDW (test code = RDW) 16.8 11.5-14.5 [facility] HospitalQilkiecUZFJPEAPPM5817-59-64 04:34:00 Test Item Value Reference Range Interpretation Comments Platelet (test code = Platelet) 178 133-450 [facility] HospitalUqhljlmNFTXHTFKTK2954-84-21 04:34:00 Test Item Value Reference Range Interpretation Comments MPV (test code = MPV) 8.0 7.4-10.4 [place] 454630-12-06 04:34:00 Test Item Value Reference Range Interpretation Comments PT (test code = PT) 14.7 s 12.0-14.7 [place] 454630-12-06 04:34:00 Test Item Value Reference Range Interpretation Comments INR (test code = INR) 1.14 1 0.85-1.17 [place] 454630-12-06 04:34:00 Test Item Value Reference Range Interpretation Comments PTT (test code = PTT) 31.2 s 22.9-35.8 [place] 454630-12-06 04:34:00 Test Item Value Reference Range Interpretation Comments Segs (test code = Segs) 73.9 45.0-75.0 [place] [address]-12-06 04:34:00 Test Item Value Reference Range Interpretation Comments Lymphocytes (test code = Lymphocytes) 11.0 20.0-40.0 [place] [address]-12-06 04:34:00 Test Item Value Reference Range Interpretation Comments Monocytes (test code = Monocytes) 13.6 2.0-12.0 [place] [address]-12-06 04:34:00 Test Item Value Reference Range Interpretation Comments Eosinophils (test code = 0.7 See_Comment [A utomated message] The Eosinophils) system which ge nerated this result tra nsmitted reference range : <=4.0. The reference r christiano was not used to int erpret this result as normal/abnormal . [place] [address]-12-06 04:34:00 Test Item Value Reference Range Interpretation Comments Basophils (test code = 0.8 See_Comment [Aut omated message] The Basophils) system which ge nerated this result tra nsmitted reference range : <=1.0. The reference r christiano was not used to int erpret this result as normal/abnormal . [place] 454630-12-06 04:34:00 Test Item Value Reference Range Interpretation Comments Neutrophils # (test code = Neutrophils 7.2 1.5-8.1 #) [place] [address]-12-06 04:34:00 Test Item Value Reference Range Interpretation Comments Lymphocytes # (test code = Lymphocytes 1.1 1.0-5.5 #) [place] [address]-12-06 04:34:00 Test Item Value Reference Range Interpretation Comments Monocytes # (test code 1.3 See_Comment [Aut omated message] The = Monocytes #) system which generated this result tra nsmitted reference range : <=0.8. The reference r christiano was not used to int erpret this result as normal/abnormal . [place] [address]-12-06 04:34:00 Test Item Value Reference Range Interpretation Comments Eosinophils # (test code 0.1 See_Comment [A utomated message] The = Eosinophils #) system wh h generated this result tra nsmitted reference range : <=0.5. The reference r christiano was not used to int erpret this result as normal/abnormal . [facility] ChildrenLzcnkqePQVXZIMPJI4636-92-84 04:34:00 Test Item Value Reference Range Interpretation Comments Basophils # (test code 0.1 See_Comment [Aut omated message] The = Basophils #) system which generated this result tra nsmitted reference range : <=0.2. The reference r christiano was not used to int erpret this result as normal/abnormal . [facility] [id number] 04:34:00 Test Item Value Reference Range Interpretation Comments Troponin-I (test code no gt See_Comment [Auto mated message] The = Troponin-I) system which g enerated this result transmit [place]ba reference range : <=0.40. The reference r christiano was not used to interpr et this result as edy l/abnormal. [facility] [id number] 04:34:00 Test Item Value Reference Range Interpretation Comments Glucose Lvl (test code = Glucose Lvl) 125 70-99 [facility] [id number] 04:34:00 Test Item Value Reference Range Interpretation Comments BUN (test code = BUN) 17 7-22 [facility] [id number] 04:34:00 Test Item Value Reference Range Interpretation Comments Creatinine Lvl (test code = Creatinine 1.51 0.50-1.40 Lvl) [facility] Children[facility]uris Networks [id number] 04:34:00 Test Item Value Reference Range Interpretation Comments Sodium Lvl (test code = Sodium Lvl) 142 135-145 [facility] [id number] 04:34:00 Test Item Value Reference Range Interpretation Comments Potassium Lvl (test code = Potassium 4.0 3.5-5.1 Lvl) [facility] [id number] 04:34:00 Test Item Value Reference Range Interpretation Comments Chloride Lvl (test code = Chloride Lvl) 108 95-109 [facility] [id number] 04:34:00 Test Item Value Reference Range Interpretation Comments CO2 (test code = CO2) 30 24-32 [facility] [id number] 04:34:00 Test Item Value Reference Range Interpretation Comments Calcium Lvl (test code = Calcium Lvl) 7.8 8.5-10.5 [facility] [id number] 04:34:00 Test Item Value Reference Range Interpretation Comments AGAP (test code = AGAP) 8.0 10.0-20.0 [facility]2020-12-06 04:34:00 Test Item Value Reference Range Interpretation Comments eGFR (test code = eGFR) 33 [place] [address]-12-06 04:34:00 Test Item Value Reference Range Interpretation Comments WBC X 10x3 (test code = WBC X 10x3) 9.7 3.7-10.4 [place] 454630-12-06 04:34:00 Test Item Value Reference Range Interpretation Comments RBC X 10x6 (test code = RBC X 10x6) 3.96 4.20-5.40 [place] [address]-12-06 04:34:00 Test Item Value Reference Range Interpretation Comments Hgb (test code = Hgb) 10.6 12.0-16.0 [place] [address]-12-06 04:34:00 Test Item Value Reference Range Interpretation Comments Hct (test code = Hct) 32.6 36.0-48.0 [place] 454630-12-06 04:34:00 Test Item Value Reference Range Interpretation Comments MCV (test code = MCV) 82.3 80.0-98.0 [place] [address]-12-06 04:34:00 Test Item Value Reference Range Interpretation Comments MCH (test code = MCH) 26.6 pg 27.0-31.0 [place] [address]-12-06 04:34:00 Test Item Value Reference Range Interpretation Comments MCHC (test code = MCHC) 32.4 32.0-36.0 [place] [address]-12-06 04:34:00 Test Item Value Reference Range Interpretation Comments RDW (test code = RDW) 16.8 11.5-14.5 [place] [address]-12-06 04:34:00 Test Item Value Reference Range Interpretation Comments Platelet (test code = Platelet) 178 133-450 [place] 454630-12-06 04:34:00 Test Item Value Reference Range Interpretation Comments MPV (test code = MPV) 8.0 7.4-10.4 [place] [address]-12-06 04:34:00 Test Item Value Reference Range Interpretation Comments PT (test code = PT) 14.7 s 12.0-14.7 [place] 454630-12-06 04:34:00 Test Item Value Reference Range Interpretation Comments INR (test code = INR) 1.14 1 0.85-1.17 [place] 454630-12-06 04:34:00 Test Item Value Reference Range Interpretation Comments PTT (test code = PTT) 31.2 s 22.9-35.8 [place] [address]-12-06 04:34:00 Test Item Value Reference Range Interpretation Comments Segs (test code = Segs) 73.9 45.0-75.0 [place] [address]-12-06 04:34:00 Test Item Value Reference Range Interpretation Comments Lymphocytes (test code = Lymphocytes) 11.0 20.0-40.0 [place] [address]-12-06 04:34:00 Test Item Value Reference Range Interpretation Comments Monocytes (test code = Monocytes) 13.6 2.0-12.0 [place] 454630-12-06 04:34:00 Test Item Value Reference Range Interpretation Comments Eosinophils (test code = 0.7 See_Comment [A utomated message] The Eosinophils) system which ge nerated this result tra nsmitted reference range : <=4.0. The reference r christiano was not used to int erpret this result as normal/abnormal . [place] 454630-12-06 04:34:00 Test Item Value Reference Range Interpretation Comments Basophils (test code = 0.8 See_Comment [Aut omated message] The Basophils) system which ge nerated this result tra nsmitted reference range : <=1.0. The reference r christiano was not used to int erpret this result as normal/abnormal . [place] 454630-12-06 04:34:00 Test Item Value Reference Range Interpretation Comments Neutrophils # (test code = Neutrophils 7.2 1.5-8.1 #) [place] 454630-12-06 04:34:00 Test Item Value Reference Range Interpretation Comments Lymphocytes # (test code = Lymphocytes 1.1 1.0-5.5 #) [place] 454630-12-06 04:34:00 Test Item Value Reference Range Interpretation Comments Monocytes # (test code 1.3 See_Comment [Aut omated message] The = Monocytes #) system which generated this result tra nsmitted reference range : <=0.8. The reference r christiano was not used to int erpret this result as normal/abnormal . [id number] 04:34:00 Test Item Value Reference Range Interpretation Comments Eosinophils # (test code 0.1 See_Comment [A utomated message] The = Eosinophils #) system whic h generated this result tra nsmitted reference range : <=0.5. The reference r christiano was not used to int erpret this result as normal/abnormal . [facility] [id number] 04:34:00 Test Item Value Reference Range Interpretation Comments Basophils # (test code 0.1 See_Comment [Aut omated message] The = Basophils #) system which generated this result tra nsmitted reference range : <=0.2. The reference r christiano was not used to int erpret this result as normal/abnormal . [facility] ChildrenCARD[facility]AC [id number] 04:34:00 Test Item Value Reference Range Interpretation Comments Troponin-I (test code no gt See_Comment [Auto mated message] The = Troponin-I) system which g enerated this result transmit sheba reference range : <=0.40. The reference r christiano was not used to interpr et this result as edy l/abnormal. [facility] [id number] 04:34:00 Test Item Value Reference Range Interpretation Comments Glucose Lvl (test code = Glucose Lvl) 125 70-99 [facility] [id number] 04:34:00 Test Item Value Reference Range Interpretation Comments BUN (test code = BUN) 17 7-22 [facility] [id number] 04:34:00 Test Item Value Reference Range Interpretation Comments Creatinine Lvl (test code = Creatinine 1.51 0.50-1.40 Lvl) [facility] [id number] 04:34:00 Test Item Value Reference Range Interpretation Comments Sodium Lvl (test code = Sodium Lvl) 142 135-145 [facility] [id number] 04:34:00 Test Item Value Reference Range Interpretation Comments Potassium Lvl (test code = Potassium 4.0 3.5-5.1 Lvl) [place] 280900-12-06 04:34:00 Test Item Value Reference Range Interpretation Comments Chloride Lvl (test code = Chloride Lvl) 108 95-109 [place] 280900-12-06 04:34:00 Test Item Value Reference Range Interpretation Comments CO2 (test code = CO2) 30 24-32 [place] [address]-12-06 04:34:00 Test Item Value Reference Range Interpretation Comments Calcium Lvl (test code = Calcium Lvl) 7.8 8.5-10.5 [place] 280900-12-06 04:34:00 Test Item Value Reference Range Interpretation Comments AGAP (test code = AGAP) 8.0 10.0-20.0 [address]12-06 04:34:00 Test Item Value Reference Range Interpretation Comments eGFR (test code = eGFR) 33 [place] [address]-12-06 04:34:00 Test Item Value Reference Range Interpretation Comments WBC X 10x3 (test code = WBC X 10x3) 9.7 3.7-10.4 [place] [address]-12-06 04:34:00 Test Item Value Reference Range Interpretation Comments RBC X 10x6 (test code = RBC X 10x6) 3.96 4.20-5.40 [place] [address]-12-06 04:34:00 Test Item Value Reference Range Interpretation Comments Hgb (test code = Hgb) 10.6 12.0-16.0 [place] [address]-12-06 04:34:00 Test Item Value Reference Range Interpretation Comments Hct (test code = Hct) 32.6 36.0-48.0 [place] [address]-12-06 04:34:00 Test Item Value Reference Range Interpretation Comments MCV (test code = MCV) 82.3 80.0-98.0 [place] [address]-12-06 04:34:00 Test Item Value Reference Range Interpretation Comments MCH (test code = MCH) 26.6 pg 27.0-31.0 [place] [address]-12-06 04:34:00 Test Item Value Reference Range Interpretation Comments MCHC (test code = MCHC) 32.4 32.0-36.0 [place] [address]-12-06 04:34:00 Test Item Value Reference Range Interpretation Comments RDW (test code = RDW) 16.8 11.5-14.5 [place] [address]-12-06 04:34:00 Test Item Value Reference Range Interpretation Comments Platelet (test code = Platelet) 178 133-450 [place] [address]-12-06 04:34:00 Test Item Value Reference Range Interpretation Comments MPV (test code = MPV) 8.0 7.4-10.4 [place] [address]-12-06 04:34:00 Test Item Value Reference Range Interpretation Comments PT (test code = PT) 14.7 s 12.0-14.7 [place] [address]-12-06 04:34:00 Test Item Value Reference Range Interpretation Comments INR (test code = INR) 1.14 1 0.85-1.17 [place] [address]-12-06 04:34:00 Test Item Value Reference Range Interpretation Comments PTT (test code = PTT) 31.2 s 22.9-35.8 [place] [address]-12-06 04:34:00 Test Item Value Reference Range Interpretation Comments Segs (test code = Segs) 73.9 45.0-75.0 [place] [address]-12-06 04:34:00 Test Item Value Reference Range Interpretation Comments Lymphocytes (test code = Lymphocytes) 11.0 20.0-40.0 [place] [address]-12-06 04:34:00 Test Item Value Reference Range Interpretation Comments Monocytes (test code = Monocytes) 13.6 2.0-12.0 [place] [address]-12-06 04:34:00 Test Item Value Reference Range Interpretation Comments Eosinophils (test code = 0.7 See_Comment [A utomated message] The Eosinophils) system which ge nerated this result tra nsmitted reference range : <=4.0. The reference r christiano was not used to int erpret this result as normal/abnormal . [place] [address]-12-06 04:34:00 Test Item Value Reference Range Interpretation Comments Basophils (test code = 0.8 See_Comment [Aut omated message] The Basophils) system which ge nerated this result tra nsmitted reference range : <=1.0. The reference r christiano was not used to int erpret this result as normal/abnormal . [id number] 04:34:00 Test Item Value Reference Range Interpretation Comments Neutrophils # (test code = Neutrophils 7.2 1.5-8.1 #) [facility] H[id number] 04:34:00 Test Item Value Reference Range Interpretation Comments Lymphocytes # (test code = Lymphocytes 1.1 1.0-5.5 #) [place] 454630-12-06 04:34:00 Test Item Value Reference Range Interpretation Comments Monocytes # (test code 1.3 See_Comment [Aut omated message] The = Monocytes #) system which generated this result tra nsmitted reference range : <=0.8. The reference r christiano was not used to int erpret this result as normal/abnormal . [facility] Hos[id number] 04:34:00 Test Item Value Reference Range Interpretation Comments Eosinophils # (test code 0.1 See_Comment [A utomated message] The = Eosinophils #) system whic h generated this result tra nsmitted reference range : <=0.5. The reference r christiano was not used to int erpret this result as normal/abnormal . [facility] Hos[id number] 04:34:00 Test Item Value Reference Range Interpretation Comments Basophils # (test code 0.1 See_Comment [Aut omated message] The = Basophils #) system which generated this result tra nsmitted reference range : <=0.2. The reference r christiano was not used to int erpret this result as normal/abnormal . [facility] [id number] 04:34:00 Test Item Value Reference Range Interpretation Comments Troponin-I (test code no gt See_Comment [Auto mated message] The = Troponin-I) system which g enerated this result transmit sheba reference range : <=0.40. The reference r christiano was not used to interpr et this result as edy l/abnormal. [facility] ChildrenAcc[facility] Networks [id number] 04:34:00 Test Item Value Reference Range Interpretation Comments Glucose Lvl (test code = Glucose Lvl) 125 70-99 [facility] [id number] 04:34:00 Test Item Value Reference Range Interpretation Comments BUN (test code = BUN) 17 7-22 [place] 280900-12-06 04:34:00 Test Item Value Reference Range Interpretation Comments Creatinine Lvl (test code = Creatinine 1.51 0.50-1.40 Lvl) [place] 280900-12-06 04:34:00 Test Item Value Reference Range Interpretation Comments Sodium Lvl (test code = Sodium Lvl) 142 135-145 [place] 280900-12-06 04:34:00 Test Item Value Reference Range Interpretation Comments Potassium Lvl (test code = Potassium 4.0 3.5-5.1 Lvl) [place] 280900-12-06 04:34:00 Test Item Value Reference Range Interpretation Comments Chloride Lvl (test code = Chloride Lvl) 108 95-109 [place] 280900-12-06 04:34:00 Test Item Value Reference Range Interpretation Comments CO2 (test code = CO2) 30 24-32 [place] 280900-12-06 04:34:00 Test Item Value Reference Range Interpretation Comments Calcium Lvl (test code = Calcium Lvl) 7.8 8.5-10.5 [place] 280900-12-06 04:34:00 Test Item Value Reference Range Interpretation Comments AGAP (test code = AGAP) 8.0 10.0-20.0 [place] 280900-12-06 04:34:00 Test Item Value Reference Range Interpretation Comments eGFR (test code = eGFR) 33 [place] 454630-12-06 04:34:00 Test Item Value Reference Range Interpretation Comments WBC X 10x3 (test code = WBC X 10x3) 9.7 3.7-10.4 [place] 454630-12-06 04:34:00 Test Item Value Reference Range Interpretation Comments RBC X 10x6 (test code = RBC X 10x6) 3.96 4.20-5.40 [place] 454630-12-06 04:34:00 Test Item Value Reference Range Interpretation Comments Hgb (test code = Hgb) 10.6 12.0-16.0 [place] [address]-12-06 04:34:00 Test Item Value Reference Range Interpretation Comments Hct (test code = Hct) 32.6 36.0-48.0 [place] 454630-12-06 04:34:00 Test Item Value Reference Range Interpretation Comments MCV (test code = MCV) 82.3 80.0-98.0 [facility] HospitalRoltrgaNMEZDMBQGC6158-12-93 04:34:00 Test Item Value Reference Range Interpretation Comments MCH (test code = MCH) 26.6 pg 27.0-31.0 [facility] Hos[id number] 04:34:00 Test Item Value Reference Range Interpretation Comments MCHC (test code = MCHC) 32.4 32.0-36.0 [facility] Ho[id number] 04:34:00 Test Item Value Reference Range Interpretation Comments RDW (test code = RDW) 16.8 11.5-14.5 [facility] Hospit[id number] 04:34:00 Test Item Value Reference Range Interpretation Comments Platelet (test code = Platelet) 178 133-450 [facility] Hos[id number] 04:34:00 Test Item Value Reference Range Interpretation Comments MPV (test code = MPV) 8.0 7.4-10.4 [place] 454630-12-06 04:34:00 Test Item Value Reference Range Interpretation Comments PT (test code = PT) 14.7 s 12.0-14.7 [facility] HospitalTclshftUQLEEVNRJT8397-68-26 04:34:00 Test Item Value Reference Range Interpretation Comments INR (test code = INR) 1.14 1 0.85-1.17 [place] 454630-12-06 04:34:00 Test Item Value Reference Range Interpretation Comments PTT (test code = PTT) 31.2 s 22.9-35.8 [place] [address]-12-06 04:34:00 Test Item Value Reference Range Interpretation Comments Segs (test code = Segs) 73.9 45.0-75.0 [place] [address]-12-06 04:34:00 Test Item Value Reference Range Interpretation Comments Lymphocytes (test code = Lymphocytes) 11.0 20.0-40.0 [place] 454630-12-06 04:34:00 Test Item Value Reference Range Interpretation Comments Monocytes (test code = Monocytes) 13.6 2.0-12.0 [place] 454630-12-06 04:34:00 Test Item Value Reference Range Interpretation Comments Eosinophils (test code = 0.7 See_Comment [A utomated message] The Eosinophils) system which ge nerated this result tra nsmitted reference range : <=4.0. The reference r christiano was not used to int erpret this result as normal/abnormal . [place] 454630-12-06 04:34:00 Test Item Value Reference Range Interpretation Comments Basophils (test code = 0.8 See_Comment [Aut omated message] The Basophils) system which ge nerated this result tra nsmitted reference range : <=1.0. The reference r christiano was not used to int erpret this result as normal/abnormal . [facility] HospitalEfmexpkMCSUPEYQCV7788-13-76 04:34:00 Test Item Value Reference Range Interpretation Comments Neutrophils # (test code = Neutrophils 7.2 1.5-8.1 #) [place] 454630-12-06 04:34:00 Test Item Value Reference Range Interpretation Comments Lymphocytes # (test code = Lymphocytes 1.1 1.0-5.5 #) [place] [address]-12-06 04:34:00 Test Item Value Reference Range Interpretation Comments Monocytes # (test code 1.3 See_Comment [Aut omated message] The = Monocytes #) system which generated this result tra nsmitted reference range : <=0.8. The reference r christiano was not used to int erpret this result as normal/abnormal . [facility] HospitalRqvgysmXIFXREIBOI3971-35-24 04:34:00 Test Item Value Reference Range Interpretation Comments Eosinophils # (test code 0.1 See_Comment [A utomated message] The = Eosinophils #) system whic h generated this result tra nsmitted reference range : <=0.5. The reference r christiano was not used to int erpret this result as normal/abnormal . [facility] Hospit[id number] 04:34:00 Test Item Value Reference Range Interpretation Comments Basophils # (test code 0.1 See_Comment [Aut omated message] The = Basophils #) system which generated this result tra nsmitted reference range : <=0.2. The reference r christiano was not used to int erpret this result as normal/abnormal . [facility] SHOULDER 2+ VW [id number] 17:54:27 Comminuted distal clavicle fracture. EXAM: XR SHOULDER 2+ VW RIGHT HISTORY: shoulder pain COMPARISON: None. FINDINGS: A comminuted fracture of the distal clavicle is seen. There is resultantmild widening of the acromioclavicular joint. Alignment is maintained atthe glenohumeral joint which exhibits osteoarthritic changes manifested byjoint space narrowing and osteophytosis. Osteopenia is suggested.At herosclerotic calcifications are present in the aortic arch. [facility], [facility]iant Results [facility] User - 06/28/2020 12:55 PM CDTEXAM:XR SHOULDER 2+ VW RIGHTHISTORY:shoulder pain COMPARISON:None.FINDINGS: A comminuted fracture of the distal clavicle is seen. There is resultantmild widening of the acromioclavicular joint. Alignment is maintained atthe glenohumeral joint which exhibits osteoarthritic changes manifested byjoint space narrowing and osteophytosis. Osteopenia is suggested.Atherosclerotic calcifications are present in the aortic arch.IMPRESSIONComminuted distal clavicle fracture. [facility] FOREARM 2 VW [id number] 17:53:09 No acute bony abnormality. EXAM: XR FOREARM 2 VW RIGHT HISTORY: right arm pain COMPARISON: None. FINDINGS: Osteopenia is noted. 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 Mild osteoarthritic changes are present at theelbow. No acute fracture or dislocation is seen. [facility], [facility]28/[facility] 12:54 PM CDTEXAM:XR FOREARM 2 VW RIGHTHISTORY:right arm pain COMPARISON:None.FINDINGS: Osteopenia is noted. 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 Mild osteoarthritic changes are present at theelbow. No acute fracture or dislocation is seen.IMPRESSIONNo acute bony abnormality.[facility]
--- NOTE | 2022-11-26 21:08 | RAD REPORT ---
EXAM DESCRIPTION: CT - CTHCSPWOC - 11/26/2022 8:46 pm CLINICAL HISTORY: Recent CVA. Fall today and yesterday. TRAUMA COMPARISON: Head C Spine Mpr Wo Con dated 11/21/2022; Head C Spine Mpr Wo Con dated 07/27/2022; Head C Spine Mpr Wo Con dated 09/04/2020; Soft Tissue Neck W/Contr dated 09/05/2016 TECHNIQUE: Axial thin cut noncontrast CT images of the head were obtained. Axial thin cut noncontrast CT images of the cervical spine were obtained. Multiplanar reformatted images were generated and reviewed. All CT scans are performed using dose optimization technique as appropriate and may include automated exposure control or mA/KV adjustment according to patient size. FINDINGS: CT HEAD WITHOUT CONTRAST: Interval development of a left tentorial subdural hematoma, 9 millimeter in thickness. Extension of s mall subdural hemorrhage present along the medial middle cranial fossa margin, measuring 4 millimeter in thickness. Decreased conspicuity of left parafalcine hyperdense subarachnoid hemorrhage since the prior exam, may relate to redistribution. Stable patchy deep white matter hypodensities, suggestive of chronic small vessel ischemic changes, a lthough nonspecific. No hydrocephalus or extra-axial collection is identified.No areas of brain edema or midline shift. Progressive opacification of the left sphenoid sinus, now with an air-fluid level. Mastoids are clear .The calvarium is intact. CT CERVICAL SPINE WITHOUT CONTRAST: No fracture or subluxation.No prevertebral soft tissues swelling is identified. Stable multilevel deg enerative changes. Borderline prominent caliber of the ascending thoracic aorta, stable. IMPRESSION: Interval development of a left tentorial subdural hematoma, 9 millimeter in thickness. T race extension along the medial left middle cranial fossa wall. Stable ventricular caliber. No midline shift. No findings to suggest an acute territorial infarct. No acute traumatic abnormality of the cervical spine. Multilevel degenerative changes. The findings were communicated to Crissy Mo MD on 11/26/2022 at 20:58 hours.
[2022-11-26 21:46] LABS: Absolute Lymphocytes (CBC) 1.2 K/uL (0.7-4.9); Hematocrit 33.1 % (36.0-45.0); Lymphocytes % 23.2 % (15.3-44.8); MCV 91.8 fL (80-100); MPV 7.6 fL (7.6-11.3)
--- NOTE | 2022-11-26 21:47 | ER ---
Nurse's Notes [facility] Name: Radha Bentley Age: 82 yrs Sex: Female : 1940 Arrival Date: 11/26/2022 Time: 19:33 Bed 3 Private MD: Diagnosis: Traumatic subdural hemorrhage;Traumatic subarachnoid hemorrhage Presentation: 11/26 19:33 Chief complaint: EMS states: pt reports brain bleed on Sunday, has had multiple falls aa9 since then. Pt fell from standing position when bending over to chicken picker dog bowl from the floor, laceration the back of head and right hand, stitches in place on the back of head from previous falls. Ebola Screen: No symptoms or risks identified at this time. Initial Sepsis Screen: Does the patient meet any 2 criteria? No. Patient's initial sepsis screen is negative. Does the patient have a suspected source of infection? No. Patient's initial sepsis screen is negative. Risk Assessment: Do you want to hurt yourself or someone else? Patient reports no desire to harm self or others. Onset of symptoms was November 26, 2022. 19:33 Method Of Arrival: EMS aa9 19:33 Acuity: VAIBHAV 3 aa9 Historical: - Allergies: 19:36 Avelox; aa9 19:36 Band-aid adhesive; aa9 - Home Meds: 19:36 Amlodipine [Active]; bupropion HCl Oral [Active]; escitalopram oxalate Oral [Active]; aa9 gabapentin Oral [Active]; Lasix Oral [Active]; - PMHx: 19:36 ADD/ADHD; COPD; Heart Murmur; Hyperlipidemia; Hypertension; Hypothyroidism; kidney aa9 disease; - PSHx: 19:36 bilateral knee replacement; breast reduction; Cholecystectomy; Shoulder replacment; aa9 - Immunization history:: Client reports receiving the 2nd dose of the Covid vaccine. - Social history:: Smoking status: Patient denies any tobacco usage or history of. Screenin:40 [facility] ED Fall Risk Assessment (Adult) History of falling in the last 3 months, aa9 including since admission Yes- fall prone (multiple falls) (3 pts) Confusion or Disorientation No (0 pts) Intoxicated or Sedated No (0 pts) Impaired Gait Yes (1 pt) Mobility Assist Device Used Yes (1 pt) Altered Elimination No (0 pt) Score/Fall Risk Level 3 or more points = High Risk Maintained a safe environment, Assessed \T\ reinforced patient's understanding of fall precautions, Hourly rounding (assess needs \T\ fall precautionary measures) done. Abuse screen: Denies threats or abuse. Denies injuries from another. Nutritional screening: No deficits noted. Tuberculosis screening: No symptoms or risk factors identified. Assessment: 19:40 General: Appears comfortable, well groomed, Behavior is cooperative, appropriate for aa9 age. General: pt denies loss of consciousness, AAOX4. Pain: Complains of pain in scalp Pain currently is 7 out of 10 on a pain scale. Neuro: Level of Consciousness is awake, alert, obeys commands, Oriented to person, place, time, situation. Cardiovascular: Patient's skin is warm and dry. Respiratory: Airway is patent Trachea midline Respiratory effort is even, unlabored. GI: No signs and/or symptoms were reported involving the gastrointestinal system. : No signs and/or symptoms were reported regarding the genitourinary system. Derm: Skin is fragile, is thin, Wound noted scalp. 21:00 Reassessment: Patient appears in no apparent distress at this time. Patient and/or jb4 family updated on plan of care and expected duration. Pain level reassessed. Patient is alert, oriented x 3, equal unlabored respirations, skin warm/dry/pink. 22:00 Reassessment: Patient appears in no apparent distress at this time. Patient and/or jb4 family updated on plan of care and expected duration. Pain level reassessed. Patient is alert, oriented x 3, equal unlabored respirations, skin warm/dry/pink. Vital Signs: 19:33 BP 153 / 70; Pulse 58; Resp 18; Pulse Ox 97% on R/A; aa9 19:39 Temp 97.9(O); Weight 86.18 kg (R); Height 4 ft. 11 in. (149.86 cm) (R); Pain 7/10; aa9 22:19 BP 194 / 82; Pulse 61; Resp 16; Pulse Ox 95% on R/A; jb4 22:30 BP 173 / 75; Pulse 65; Resp 16; Pulse Ox 96% on R/A; jb4 19:39 Body Mass Index 38.37 (86.18 kg, 149.86 cm) aa9 22:19 Provider notified, see MAR for orders. jb4 Olga Coma Score: 22:19 Eye Response: spontaneous(4). Verbal Response: oriented(5). Motor Response: obeys jb4 commands(6). Total: 15. 22:41 Eye Response: spontaneous(4). Verbal Response: oriented(5). Motor Response: obeys jb4 commands(6). Total: 15. ED Course: 19:33 Patient arrived in ED. ph 19:33 Paulette Seaman, RN is Primary Nurse. aa9 19:34 Crissy Mo MD is Attending Physician. sp3 19:36 Triage completed. aa9 20:47 CT Head C Spine In Process Unspecified. EDMS 21:22 Inserted saline lock: 20 gauge in left antecubital area, using aseptic technique. Blood aa9 collected. 21:25 Basic Metabolic Panel Sent. aa9 21:25 CBC with Diff Sent. aa9 21:25 PT-INR Sent. aa9 21:26 Arm band placed on right wrist. aa9 21:26 Patient has correct armband on for positive identification. Bed in low position. Side aa9 rails up X2. Pulse ox on. NIBP on. 22:13 SARS RAPID Sent. aa9 23:09 No provider procedures requiring assistance completed. Patient transferred, IV remains jb4 in place. Administered Medications: 22:25 Drug: hydrALAZINE 10 mg Route: IVP; Site: left antecubital; jb4 Outcome: 21:47 ER care complete, transfer ordered by . sp3 23:09 Transferred by ground EMS to [facility], Transfer form completed. X-rays sent jb4 w/ patient. 23:09 Condition: stable 23:09 Discharge instructions given to patient, Instructed on the need for transfer, Demonstrated understanding of instructions. 23:10 Patient left the ED. jb4 Signatures: Dispatcher [employer] EDOH Gia De Jesus RN RN ph Bryson, James RN RN jb4 Crissy Mo MD MD sp3 Paulette Seaman, RN RN aa9 Corrections: (The following items were deleted from the chart) 22:33 22:19 BP 194 / 82; Pulse 61bpm; Resp 16bpm; Pulse Ox 95% RA; jb4 jb4
--- NOTE | 2022-11-26 21:48 | EDPHYS ---
Physician Documentation [facility] Name: Radha Bentley Age: 82 yrs Sex: Female : 1940 Arrival Date: 11/26/2022 Time: 19:33 Bed 3 Private MD: ED Physician Crissy Mo HPI: 11/26 19:37 This 82 yrs old Female presents to ER via EMS with complaints of head injury/fall. sp3 19:37 82-year-old female with a history of COPD, hypertension, kidney disease and recent sp3 traumatic subarachnoid bleed on November 21 presents status post mechanical ground-level fall again today. Patient was also seen yesterday for similar symptoms which when she lost her balance and fell. 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 Utensils became mildly dizzy and then fell. No loss of consciousness reported. Patient's injuries predominately on the occiput of her head with mild abrasion there as well as abrasion on the left lateral elbow. Denies LOC, headache, neck pain, facial pain, continued dizziness, or any other neuro symptoms at this time. Patient also denies any other review of systems including chest pain, shortness of breath, syncope, near syncope, abdominal pain, nausea, vomiting, diarrhea, rash, or any other symptoms at this time.. Historical: - Allergies: 19:36 Avelox; aa9 19:36 Band-aid adhesive; aa9 - Home Meds: 19:36 Amlodipine [Active]; bupropion HCl Oral [Active]; escitalopram oxalate Oral [Active]; aa9 gabapentin Oral [Active]; Lasix Oral [Active]; - PMHx: 19:36 ADD/ADHD; COPD; Heart Murmur; Hyperlipidemia; Hypertension; Hypothyroidism; kidney aa9 disease; - PSHx: 19:36 bilateral knee replacement; breast reduction; Cholecystectomy; Shoulder replacment; aa9 - Immunization history:: Client reports receiving the 2nd dose of the Covid vaccine. - Social history:: Smoking status: Patient denies any tobacco usage or history of. ROS: 19:39 Constitutional: Negative for fever, chills, and weight loss, Eyes: Negative for injury, sp3 pain, redness, and discharge, ENT: Negative for injury, pain, and discharge, Neck: Negative for injury, pain, and swelling, Cardiovascular: Negative for chest pain, palpitations, and edema, Respiratory: Negative for shortness of breath, cough, wheezing, and pleuritic chest pain, Abdomen/GI: Negative for abdominal pain, nausea, vomiting, diarrhea, and constipation, Back: Negative for injury and pain, Skin: Negative for injury, rash, and discoloration, Psych: Negative for depression, anxiety, suicide ideation, homicidal ideation, and hallucinations, Allergy/Immunology: Negative for hives, rash, and allergies, Endocrine: Negative for neck swelling, polydipsia, polyuria, polyphagia, and marked weight changes. 19:39 All other systems are negative. Exam: 19:39 Constitutional: This is a well developed, well nourished patient who is awake, alert, sp3 and in no acute distress. Eyes: Pupils equal round and reactive to light, extra-ocular motions intact. Lids and lashes normal. Conjunctiva and sclera are non-icteric and not injected. Cornea within normal limits. Periorbital areas with no swelling, redness, or edema. ENT: Nares patent. No nasal discharge, no septal abnormalities noted. External auditory canals are clear. Oropharynx with no redness, swelling, or masses, exudates, or evidence of obstruction, uvula midline. Mucous membranes moist. Neck: Trachea midline, no thyromegaly or masses palpated, and no cervical lymphadenopathy. Supple, full range of motion without nuchal rigidity, or vertebral point tenderness. No Meningismus. Chest/axilla: Normal chest wall appearance and motion. Nontender with no deformity. No lesions are appreciated. Cardiovascular: Regular rate and rhythm with a normal S1 and S2. No gallops, murmurs, or rubs. Normal PMI, no JVD. No pulse deficits. Respiratory: Lungs have equal breath sounds bilaterally, clear to auscultation and percussion. No rales, rhonchi or wheezes noted. No increased work of breathing, no retractions or nasal flaring. Abdomen/GI: Soft, non-tender, with normal bowel sounds. No distension or tympany. No guarding or rebound. No evidence of tenderness throughout. Skin: Warm, dry with normal turgor. Normal color with no rashes, no lesions, and no evidence of cellulitis. MS/ Extremity: Pulses equal, no cyanosis. Neurovascular intact. Full, normal range of motion. Neuro: Awake and alert, GCS 15, oriented to person, place, time, and situation. Cranial nerves II-XII grossly intact. Motor strength 5/5 in all extremities. Sensory grossly intact. Cerebellar exam normal. Normal gait. Psych: Awake, alert, with orientation to person, place and time. Behavior, mood, and affect are within normal limits. 19:39 Head/face: Patient with posterior abrasion to the occiput with no active bleeding and fresh clot present. Patient still has mild abrasion on the left lateral elbow with no current bleeding. No other injuries reported or visualized.. Vital Signs: 19:33 BP 153 / 70; Pulse 58; Resp 18; Pulse Ox 97% on R/A; aa9 19:39 Temp 97.9(O); Weight 86.18 kg (R); Height 4 ft. 11 in. (149.86 cm) (R); Pain 7/10; aa9 22:19 BP 194 / 82; Pulse 61; Resp 16; Pulse Ox 95% on R/A; jb4 22:30 BP 173 / 75; Pulse 65; Resp 16; Pulse Ox 96% on R/A; jb4 19:39 Body Mass Index 38.37 (86.18 kg, 149.86 cm) aa9 22:19 Provider notified, see MAR for orders. jb4 Olga Coma Score: 22:19 Eye Response: spontaneous(4). Verbal Response: oriented(5). Motor Response: obeys jb4 commands(6). Total: 15. 22:41 Eye Response: spontaneous(4). Verbal Response: oriented(5). Motor Response: obeys jb4 commands(6). Total: 15. MDM: 19:35 Patient medically screened. sp3 19:40 Data reviewed: vital signs, nurses notes, EMS record, old medical records, radiologic sp3 studies. ED course: 82-year-old female with multiple medical problems and recurrent falls secondary to likely orthostatic hypotension. Given her recent subarachnoid hemorrhage from trauma, we will repeat imaging again today to evaluate and compare. Patient has no neurological symptoms at this time. I had an extensive conversation with patient regarding home ambulation she states that she has not been compliant with her walker as much and she also has an electric wheelchair which she has not been using. She assures us that she will now become compliant with these 2 items as well as having family around when she is ambulating. She declined being admitted to the hospital or being placed in any sort of temporary care facility to discovery further evaluated. She states that she will follow-up with her primary care physician and given her assurances and full coherence I am okay with this plan. If imaging is negative, we will discharge patient safely home.. 21:28 ED course: Patient has interval development of a subdural hemorrhage for lesion noted sp3 on radiology report. Reviewed coagulation and laboratory values from her last visits which demonstrate no significant abnormality. We will repeat labs today however this should not impede her transfer to neurosurgical care for further observation and definitive plan. Patient's neurological status is normal with no deficits. Evidence of a prior subarachnoid hemorrhage are also present.. 21:45 ED course: Patient accepted by Dr. Beebe at neurosurgical service. Will transfer via sp3 ground ALS.. 11/26 21:01 Order name: Basic Metabolic Panel sp3 11/26 21:01 Order name: CBC with Diff 3 11/26 19:35 Order name: CT Head C Spine; Complete Time: 21:20 sp3 11/26 21:01 Order name: PT-INR sp3 11/26 21:34 Order name: SARS RAPID 11/26 22:31 Order name: SARS-COV-2 Antigen Rapid [facility] 11/26 21:01 Order name: Cardiac monitoring; Complete Time: 21:25 sp3 11/26 21:01 Order name: IV Saline Lock; Complete Time: 21:25 sp3 11/26 21:01 Order name: Labs collected and sent; Complete Time: 21:25 sp3 Administered Medications: 22:25 Drug: hydrALAZINE 10 mg Route: IVP; Site: left antecubital; jb4 Disposition Summary: 11/26/22 21:47 Transfer Ordered Transfer Location: [facility] sp3 Reason: Higher level of care sp3 Condition: Stable sp3 Problem: new sp3 Symptoms: have worsened sp3 Accepting Physician: Neurosurgical service(11/26/22 23:10) jb4 Diagnosis - Traumatic subdural hemorrhage sp3 - Traumatic subarachnoid hemorrhage sp3 Forms: - Medication Reconciliation Form sp3 - SBAR form sp3 Signatures: Dispatcher [employer] EDKS Johnnie Hernandez RN RN jb4 Crissy Mo MD MD sp3 Paulette Seaman, RN RN aa9 Corrections: (The following items were deleted from the chart) 23:10 21:47 Neurosurgical service sp3 jb4
[2022-11-26 21:57] LABS: Protime INR 1.07
[2022-11-26 22:24] LABS: Potassium 4.4 mmol/L (3.5-5.1)
[2022-11-26] MEDS ORDERED: HYDRALAZINE HCL 20 MG/ML VIAL ONE (22:28)
[2022-11-26 22:30] LABS: SARS-CoV-2 Antigen Rapid Res Negative (Negative)
[2022-11-26 23:15] VITALS: TEMP 97.9
[2022-11-26 23:18] VITALS: BP 173/75; O2SAT 96
== END 2022-11-26 23:10 | disposition short-term general hospital (02) ==
LOC: ER 19:31
DX: S06.5X0A Traumatic subdural hemorrhage without loss of consciousness, initial encounter (principal); S06.6X0A Traumatic subarachnoid hemorrhage without loss of consciousness, initial encounter; I10 Essential (primary) hypertension; J44.9 Chronic obstructive pulmonary disease, unspecified; E78.5 Hyperlipidemia, unspecified; Z20.822 Contact with and (suspected) exposure to COVID-19; Z88.6 Allergy status to analgesic agent; Z91.048 Other nonmedicinal substance allergy status
CPT/HCPCS: 85025; 80048; 36415; 85610; 70450; 72125; 96374; 99285; 87811; J0360

== ENCOUNTER 2023-03-05 11:09 | Inpatient (IN) | payer MEDICARE ==
--- OUTSIDE RECORDS SUMMARY | 2023-03-05 11:42 | XMS REPORT | Continuity of Care Document ---
:[address] [facility] t Address [address] [place] [address] Care Team Providers Name Role Phone [place] Primary Care Physician Anurag Sanderson Attending Clinician Unavailable Glenys Claros Attending Clinician Dealinda_Maria G Attending Clinician Unavailable Alisa Sanders Attending Clinician EMMANUEL VELEZ Attending Clinician Unavailable Emmanuel Velez Attending Clinician PEREZ MORENO Attending Clinician Unavailable Perez Moreno Attending Clinician Doctor Unassigned, [place] Attending Clinician Unavailable Allegra Laura Attending Clinician CARLY SINCLAIR Attending Clinician Unavailable Carly Sinclair DO Attending Clinician Solitario_Keesha Attending Clinician Unavailable Jeffrey Garcia Attending Clinician Olivia-Mbayo_A_AH Attending Clinician Unavailable Caitlyn Jerez Attending Clinician [phone] Vincent Soni Attending Clinician Sariah Becerra Attending Clinician Maria Luisa Rust NP Attending Clinician Timi Aguirre MD Attending Clinician TIMI AGUIRRE Attending Clinician Unavailable Physician, No Primary or Family Admitting Clinician Unavaila marika Sanders_Maria G Admitting Clinician Unavailable AYO CASTAÑEDA Admitting Clinician Unavailable Ayo Castañeda Admitting Clinician PEREZ MORENO Admitting Clinician Unavailable Perez Moreno Admitting Clinician CARLY SINCLAIR Admitting Clinician Unavailable Sunny Admitting Clinician Unavailable Olivia-Mbayo_A_AH Admitting Clinician Unavailable Vincent Soni Admitting Clinician TIMI AGUIRRE Admitting Clinician Unavailable Payers Payer Name Policy Type Policy Number Effective Date Expiration Date Carla kristen [facility] [id number] 2020 00:00:00 [employer] [place] [id number] 2019 CLASSIC/VALUE 00:00:00 [id number] (MEDICARE 00:00:00 REPLACEMENT HMO) [place] OF [place] - [id number] 2019 [place] (MEDICARE 00:00:00 REPLACEMENT/ADVANTA GE - HMO) Problems Condition Condition Condition Status Onset Resolution Last Treating Co mments Source Name Details Category Date Date Treatment Clinician Date SUBARACHMO SUBARACHM Diagnosis Active 2022-12-11 Memoria ID OID 11-25 21:45:00 l HEMORRHAGE HEMORRHAGE 23:05: He rmann Active 00 11/25/2022 [facility] Acute Acute Diagnosis Active 2022-11-25 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:53 l failure failure 00:00: [place] syndrome syndrome 00 (disorder) (disorder) Active 11/22/2022 Diagnosis 11/25/2022 [facility] SUBARACHNO SUBARACHN Diagnosis Active 2022-11-23 Memoria ID OID 11-20 15:38:00 l HEMORRHAGE HEMORRHAGE 00:00: He rmann Active 00 11/20/2022 [facility] FALL FROM FALL FROM Diagnosis Active 2019-102020-09-16 Memoria STANDING STANDING 2 21:55:00 l Active 00:00: [place] 09/04/2020 00 [facility] S/P FALL, S/P Diagnosis Active 2019-102020-09-05 Memoria FRACTURED FALL, 2 00:45:00 l RIGHT FRACTURED 00:00: Raul WRIST, RIGHT 00 HEAD HE WRIST, HEAD HE Active 09/04/2020 [facility] Traumatic Traumatic Problem 2022-12-04 Memoria subdural subdural 08:08:28 l hemorrhage hemorrhage He rmann with loss with loss of of consciousn consciousn ess status ess status unknown, unknown, initial initial encounter encounter 12/04/2022 [facility] Intracrani Intracran Diagnosis 2022-12-02 Memoria al injury ial injury 04:21:54 l with loss with loss Herm bernie of of consciousn consciousn ess ess (disorder) (disorder) Diagnosis 12/02/2022 [facility] 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 Francisco zhang stenosis stenosis 08:08:28 l in in [place] cervical cervical region region (disorder) (disorder) Active Problem 12/04/2022 [facility] TRAUM TRAUM Diagnosis Active 2022-12-11 Mem oria SUBDR HEM SUBDR HEM 21:45:00 l WITH LOC WITH LOC Ajay n STATUS STATUS UNKNOWN, UNKNOWN, Active [facility] Hypertensi Hypertens Problem Active 2022-12-04 Memoria ve lyle 08:08:28 l disorder, disorder, Herm bernie systemic systemic arterial arterial (disorder) (disorder) Active Problem 12/04/2022 [facility] Hyperlipid Hyperlipi Problem Active 2022-12-04 Memoria emia demia 08:08:28 l (disorder) (disorder) He rmann Active Problem 12/04/2022 [facility] Hypothyroi Hypothyro Problem Active 2022-12-04 Memoria dism idism 08:08:28 l (disorder) (disorder) He rmann Active Problem 12/04/2022 [facility] Memory Memory Problem Active 2022-12-04 Mem oria impairment impairment 08:08:28 l (finding) (finding) Herm bernie Active Problem 12/04/2022 [facility] Morbid Morbid Problem Active 2022-12-04 Mem oria obesity obesity 08:08:28 l (disorder) (disorder) He rmann Active Problem 12/04/2022 [facility] Recurrent Recurrent Problem Active 2022-12-04 Memoria falls falls 08:08:28 l (finding) (finding) Herm bernie Active Problem 12/04/2022 [facility] Transient Transient Problem Active 2022-12-04 Memoria ischemic ischemic 08:08:28 l attack attack [place] (disorder) (disorder) Active Problem 12/04/2022 [facility] Tremor Tremor Problem Active 2022-12-04 Jose Francisco zhang (finding) (finding) 08:08:28 l Active Raul Problem 12/04/2022 [facility] 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-04 Me moria kidney kidney 08:08:28 l disease disease [place] (disorder) (disorder) Active Problem 12/04/2022 [facility] 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-04 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:08:28 l e lung e lung Raul disease disease (disorder) (disorder) Active Problem 12/04/2022 [facility] 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 08:08:28 l (disorder) (disorder) He rmann Active Problem 12/04/2022 [facility] Essential Essential Problem Active 2022-12-04 Memoria tremor tremor 08:08:28 l (disorder) (disorder) He rmann Active Problem 12/04/2022 [facility] UNSPECIFIE UNSPECIFI Diagnosis Active 2020-09-16 Memoria D FALL, ED FALL, 21:55:00 l INITIAL INITIAL [place] ENCOUNTER ENCOUNTER Active [facility] [id number] 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[facility] right hand [id number] Acute pain Problem Com mon of right [facility] shoulder [facility] [id number] 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 [facility] [id number] Arthritis Problem Com mon of hand Spirit - CHI [facility] History of Past Illness Condition Condition Condition Status Onset Resolution Last Treating Co mments Source Name Details Category Date Date Treatment Clinician Date Spinal Spinal Problem 2022-2022-12-04 2022-12-04 Memoria stenosis, stenosis, 11-29 08:08:28 08:08:28 l cervical cervical 16:54: Ajay n region region 00 11/29/2022 12/04/2022 [facility] Repeated Repeated Problem 2022-2022-12-04 2022-12-04 Memoria falls falls 11-29 08:08:28 08:08:28 l 11/29/2022 16:45: Ajay gorman 12/04/2022 00 [facility] Chronic Chronic Problem 2022-11-27 2022-11-27 Memoria kidney kidney 11-22 10:42:07 10:42:07 l disease, disease, 19:17: Ajay gorman unspecifie unspecifie 00 d d 11/22/2022 11/27/2022 [facility] Allergies, Adverse Reactions, Alerts Allergy Allergy Status Severity Reaction(s) Onset Inactive Treating Comm ents Source Name Type Date Date Clinician ADHESIVE DRUG Active Med Rash Univers TAPE-DEBBY 8-30 ity of ICONES 00:00: [place] [facility] MOXIFLOX DRUG Active Med Rash Univers ACIN HCL INGREDI 8-30 ity of 00:00: [place] [id number] [facility] Adhesive Propensi Active Rash Univer s Tape-Debby ty to 8-30 ity of icones adverse 00:00: [place] reaction 00 Medical s to Branch drug Moxiflox Propensi Active Rash Univer s acin Hcl ty to 8-30 ity of adverse 00:00: [place] reaction 00 Medical s to Branch drug moxiflox DA Active U [facility] acin HCl 2-15 West 00:00: [address] BANDAIDS DA Active [place] [facility] ADHESIVE 2-15 West 00:00: [address] Avelox Avelox Active CA^Mild Memoria l Raul Avelox Allergy Active Rash Devoted to Medical substanc Group e Social History Social Habit Start Date Stop Date Quantity Comments Source ASSERTION [facility] Alcohol Comment Occasional [facility] History of Common Spirit - Tobacco Use [facility] Sex Assigned At Common Sp cristian - [facility] Alcohol intake 2022-08-10 2022-08-10 0 /d University of 00:00:00 00:00:00 [facility] Exposure to 2022-07-26 2022-08-05 Not sure [facility] SARS-CoV-2 00:00:00 12:21:00 [facility] (event) [place] Social History 2020-09-05 2020-09-05 Nancy najera 14:31:45 14:31:45 Tobacco use and 2020-06-28 2020-06-28 Never used Universit y of exposure 00:00:00 00:00:00 [facility] Smoking Status Start Date Stop Date Source Former Smoker 2022-11-18 00:00:00 2022-11-18 00:00:00 Common S pirit - [facility] Ce nter Never smoked tobacco [facility] Medications Ordered Filled Start Stop Current Ordering Indication Dosage Frequency Signature Comments Components Source Medication Medication Date Date Medication? Clinician (SIG) Name Name deisi Yes 500 mg = 2 Mem oria acid 250 mg 3-01 cap, PO, l oral 16:43: Q8H, # 30 [place] capsule(Dep 00 cap, 0 ekene) Refill(s), Pharmacy: [id number], 149.86, cm, 11/27/22 8:13:00 PALLIATIVE CARE PHYSICIAN, Height, 86.364, kg, 11/27/22 8:13:00 PALLIATIVE CARE PHYSICIAN, Weight Tylenol No 1 tab, PO, Jose Francisco zhang with 3-01 Q6H, PRN l Codeine #3 16:43: Pain Score H ermann oral tablet 00 7-10, X 3 day, # 12 tab, 0 Refill(s), Pharmacy: [facility] #[id number], 149.86, cm, 11/27/22 8:13:00 PALLIATIVE CARE PHYSICIAN, Height, 86.364, kg, 11/27/22 8:13:00 PALLIATIVE CARE PHYSICIAN, Weight valproic Yes 500 mg = 2 Mem oria acid 250 mg 3-01 cap, PO, l oral 16:43: Q8H, # 30 Raul capsule(Dep 00 cap, 0 ekene) Refill(s), Pharmacy: [facility] #[id number], 149.86, cm, 11/27/22 8:13:00 PALLIATIVE CARE PHYSICIAN, Height, 86.364, kg, 11/27/22 8:13:00 PALLIATIVE CARE PHYSICIAN, Weight Tylenol 0 No 1 tab, PO, Jose Francisco zhang with 3-01 Q6H, PRN l Codeine #3 16:43: Pain Score H ermann oral tablet 00 7-10, X 3 day, # 12 tab, 0 Refill(s), Pharmacy: [facility] #[id number], 149.86, cm, 11/27/22 8:13:00 PALLIATIVE CARE PHYSICIAN, Height, 86.364, kg, 11/27/22 8:13:00 PALLIATIVE CARE PHYSICIAN, Weight valproic 2022-0 Yes 500 mg = 2 Mem oria acid 250 mg 3-01 cap, PO, l oral 16:43: Q8H, # 30 [place] capsule(Dep 00 cap, 0 ekene) Refill(s), Pharmacy: [facility] #[id number], 149.86, cm, 11/27/22 8:13:00 PALLIATIVE CARE PHYSICIAN, Height, 86.364, kg, 11/27/22 8:13:00 PALLIATIVE CARE PHYSICIAN, Weight Tylenol 2022-0 No 1 tab, PO, Jose Francisco zhang with 3-01 Q6H, PRN l Codeine #3 16:43: Pain Score H ermann oral tablet 00 7-10, X 3 day, # 12 tab, 0 Refill(s), Pharmacy: [facility] #[id number], 149.86, cm, 11/27/22 8:13:00 PALLIATIVE CARE PHYSICIAN, Height, 86.364, kg, 11/27/22 8:13:00 PALLIATIVE CARE PHYSICIAN, Weight rOPINIRole 2022-0 Yes 2 mg = 1 Mem oria 2 mg oral 3-01 tab, PO, l tablet 16:42: Q12H, 0 Raul 00 Refill(s) acetaminoph 3-0 Yes 100.4 F, M emoria en 325 mg 3-01 0 l oral 16:42: Refill(s) [place] tablet. 00 rOPINIRole 3-0 Yes 2 mg = 1 Mem oria 2 mg oral 3-01 tab, PO, l tablet 16:42: Q12H, 0 [place] 00 Refill(s) acetaminoph 2023-0 Yes 100.4 F, M emoria en 325 mg 3-01 0 l oral 16:42: Refill(s) [place] tablet. 00 rOPINIRole 3-0 Yes 2 mg = 1 Mem oria 2 mg oral 3-01 tab, PO, l tablet 16:42: Q12H, 0 Raul 00 Refill(s) acetaminoph 2023-0 Yes 100.4 F, M emoria en 325 mg 3-01 0 l oral 16:42: Refill(s) [place] tablet. 00 donepezil 2022-0 No 10 mg, 2 Jose Francisco zhang 2-28 tab, l 15:00: Route: PO, [place] 00 Drug form: TAB, Daily, Dosing Weight 86.364, kg, 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/28/22 9:00:00 PALLIATIVE CARE PHYSICIAN, 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, Stop date: 12/27/22 9:00:00 CDT, 0 ferrous 2023-0 No Notes: Memoria sulfate 2-28 Give with l 15:00: food. "Do Not Crush" NIFEdipine 2023-0 No 30 mg, 1 Mem oria 30 mg oral 2-28 tab, l tablet, 15:00: Route: PO, Herm bernie extended 00 Drug form: release ERTAB, Daily, Dosing Weight 86.364, kg, 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/28/22 9:00:00 PALLIATIVE CARE PHYSICIAN, 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, Stop date: 12/27/22 9:00:00 CDT, 0 donepezil 2023-0 No 10 mg, 2 Jose Francisco zhang 2-28 tab, l 15:00: Route: PO, [place] Drug form: TAB, Daily, Dosing Weight 86.364, kg, 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/28/22 9:00:00 PALLIATIVE CARE PHYSICIAN, 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, Stop date: 12/27/22 9:00:00 CDT, 0 ferrous 2023-0 No Notes: Memoria sulfate 2-28 Give with l 15:00: food. "Do Not Crush" NIFEdipine 2023-0 No 30 mg, 1 Mem oria 30 mg oral 2-28 tab, l tablet, 15:00: Route: PO, Herm bernie extended 00 Drug form: release ERTAB, Daily, Dosing Weight 86.364, kg, 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/28/22 9:00:00 PALLIATIVE CARE PHYSICIAN, 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, Stop date: 12/27/22 9:00:00 CDT, 0 donepezil 2023-0 No 10 mg, 2 Jose Francisco zhang 2-28 tab, l 15:00: Route: PO, Raul 00 Drug form: TAB, Daily, Dosing Weight 86.364, kg, 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/28/22 9:00:00 PALLIATIVE CARE PHYSICIAN, 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, Stop date: 12/27/22 9:00:00 CDT, 0 ferrous 2023-0 No Notes: Memoria sulfate 2-28 Give with l 15:00: food. "Do Not Crush" NIFEdipine 2022-0 No 30 mg, 1 Mem oria 30 mg oral 2-28 tab, l tablet, 15:00: Route: PO, Herm Drug form: release ERTAB, Daily, Dosing Weight 86.364, kg, 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/28/22 9:00:00 PALLIATIVE CARE PHYSICIAN, 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, Stop date: 12/27/22 9:00:00 CDT, 0 heparin 2022-0 No Notes: Memoria 5000 2-28 porcine l units/mL 14:00: heparin Ajay n injectable 00 solution heparin 2022-0 No Notes: Memoria 5000 2-28 porcine l units/mL 14:00: heparin Ajay n injectable 00 solution heparin 2022-0 No Notes: Memoria 5000 2-28 porcine l units/mL 14:00: heparin Ajay n injectable 00 solution levothyroxi 2022-0 No 112 Memori a ne 2-28 microgram, l 12:00: 1 tab, Route: PO, Drug form: TAB, Q6AM, Dosing Weight 86.364, kg, 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/28/22 6:00:00 PALLIATIVE CARE PHYSICIAN, 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, Stop date: 12/27/22 6:00:00 CDT, 0 levothyroxi 3-0 No 112 Memori a ne 2-28 microgram, l 12:00: 1 tab, [place] 00 Route: PO, Drug form: TAB, Q6AM, Dosing Weight 86.364, kg, 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/28/22 6:00:00 PALLIATIVE CARE PHYSICIAN, 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, Stop date: 12/27/22 6:00:00 CDT, 0 levothyroxi 3-0 No 112 Memori a ne 2-28 microgram, l 12:00: 1 tab, Raul 00 Route: PO, Drug form: TAB, Q6AM, Dosing Weight 86.364, kg, 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/28/22 6:00:00 PALLIATIVE CARE PHYSICIAN, 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, Stop date: 12/27/22 6:00:00 CDT, 0 Wellbutrin 2022-0 No 150 mg, 1 Me moria SR 2-28 tab, l 03:00: Route: PO, Raul 00 Drug form: ERTAB, Q12H, Dosing Weight 86.364, kg, 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/27/22 21:00:00 PALLIATIVE CARE PHYSICIAN, 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, Stop date: 12/27/22 9:00:00 CDT, 0 Coreg 2022-0 No Notes: Memoria 2-28 Give with l 03:00: food. 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:00 PALLIATIVE CARE PHYSICIAN, 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, Stop date: 12/26/22 21:00:00 CDT, 0 primidone 0 No Notes: Memori a 2-28 (Same as: l 03:00: Mysoline) rOPINIRole No Notes: Memor ia 2-28 TIME l 03:00: CRITICAL MEDICATION (Same as: Requip) Wellbutrin No 150 mg, 1 Me moria SR 2-28 tab, l 03:00: Route: PO, Drug form: ERTAB, Q12H, Dosing Weight 86.364, kg, 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/27/22 21:00:00 PALLIATIVE CARE PHYSICIAN, 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, Stop date: 12/27/22 9:00:00 CDT, 0 Coreg 2022-0 No Notes: Memoria 2-28 Give with l 03:00: food. (Same As: Coreg) Lexapro No Notes: Memoria 2-28 (Same as: l 03:00: Lexapro) Pepcid 40 No Notes: Memori a mg oral 2-28 (Same as: l tablet 03:00: Pepcid) atorvastati 0 No 20 mg, 1 Me moria n 2-28 tab, l 03:00: Route: PO, [place] 00 Drug form: TAB, Bedtime, Dosing Weight 86.364, kg, 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/27/22 21:00:00 PALLIATIVE CARE PHYSICIAN, 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, Stop date: 12/26/22 21:00:00 CDT, 0 primidone 0 No Notes: Memori a 2-28 (Same as: l 03:00: Mysoline) rOPINIRole No Notes: Memor ia 2-28 TIME l 03:00: CRITICAL MEDICATION (Same as: Requip) Wellbutrin No 150 mg, 1 Me moria SR 2-28 tab, l 03:00: Route: PO, Drug form: ERTAB, Q12H, Dosing Weight 86.364, kg, 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/27/22 21:00:00 PALLIATIVE CARE PHYSICIAN, 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, Stop date: 12/27/22 9:00:00 CDT, 0 Coreg 0 No Notes: Memoria 2-28 Give with l 03:00: food. (Same As: Coreg) Lexapro No Notes: Memoria 2-28 (Same as: l 03:00: Lexapro) Pepcid 40 No Notes: Memori a mg oral 2-28 (Same as: l tablet 03:00: Pepcid) atorvastati No 20 mg, 1 Me moria n 2-28 tab, l 03:00: Route: PO, Raul 00 Drug form: TAB, Bedtime, Dosing Weight 86.364, kg, 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/27/22 21:00:00 PALLIATIVE CARE PHYSICIAN, 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, Stop date: 12/26/22 21:00:00 CDT, 0 primidone 2022-0 No Notes: Memori a 2-28 (Same as: l 03:00: Mysoline) rOPINIRole No Notes: Memor ia 2-28 TIME l 03:00: CRITICAL MEDICATION (Same as: Requip) rOPINIRole No 4 mg, 1 Jose Francisco zhang 2-27 tab, l 23:00: Route: PO, [place] 00 Drug form: TAB, BID, Dosing Weight 86.364, kg, 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/27/22 17:00:00 PALLIATIVE CARE PHYSICIAN, 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, Stop date: 12/27/22 9:00:00 CDT pantoprazol 2023-0 No 40 mg, 1 Me moria e 2-27 tab, l 23:00: Route: PO, Drug form: ECTAB, BID, Dosing Weight 86.364, kg, 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/27/22 17:00:00 PALLIATIVE CARE PHYSICIAN, 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, Stop date: 12/27/22 9:00:00 CDT rOPINIRole 2023-0 No 4 mg, 1 Jose Francisco zhang 2-27 tab, l 23:00: Route: PO, Drug form: TAB, BID, Dosing Weight 86.364, kg, 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/27/22 17:00:00 PALLIATIVE CARE PHYSICIAN, 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, Stop date: 12/27/22 9:00:00 CDT pantoprazol 2023-0 No 40 mg, 1 Me moria e 2-27 tab, l 23:00: Route: PO, Drug form: ECTAB, BID, Dosing Weight 86.364, kg, 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/27/22 17:00:00 PALLIATIVE CARE PHYSICIAN, 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, Stop date: 12/27/22 9:00:00 CDT rOPINIRole 2023-0 No 4 mg, 1 Jose Francisco zhang 2-27 tab, l 23:00: Route: PO, Drug form: TAB, BID, Dosing Weight 86.364, kg, 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/27/22 17:00:00 PALLIATIVE CARE PHYSICIAN, 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, Stop date: 12/27/22 9:00:00 CDT pantoprazol 2023-0 No 40 mg, 1 Me moria e 2-27 tab, l 23:00: Route: PO, Drug form: ECTAB, BID, Dosing Weight 86.364, kg, 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/27/22 17:00:00 PALLIATIVE CARE PHYSICIAN, 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, Stop date: 12/27/22 9:00:00 CDT valproic 2023-0 No 500 mg, 2 Jose Francisco zhang acid 250 mg 2-27 cap, l oral 22:00: Route: PO, Raul capsule(Dep 00 Drug form: ekene) CAP, Q8H, Dosing Weight 86.364, kg, 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/27/22 16:00:00 PALLIATIVE CARE PHYSICIAN, Duration: 7 day, Stop date: 12/04/22 8:00:00 PALLIATIVE CARE PHYSICIAN, 0 valproic 2023-0 No 500 mg, 2 Jose Francisco zhang acid 250 mg 2-27 cap, l oral 22:00: Route: PO, [place] capsule(Dep 00 Drug form: ekene) CAP, Q8H, Dosing Weight 86.364, kg, 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/27/22 16:00:00 PALLIATIVE CARE PHYSICIAN, Duration: 7 day, Stop date: 12/04/22 8:00:00 PALLIATIVE CARE PHYSICIAN, 0 valproic 2023-0 No 500 mg, 2 Jose Francisco zhang acid 250 mg 2-27 cap, l oral 22:00: Route: PO, Raul capsule(Dep 00 Drug form: ekene) CAP, Q8H, Dosing Weight 86.364, kg, 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/27/22 16:00:00 PALLIATIVE CARE PHYSICIAN, Duration: 7 day, Stop date: 12/04/22 8:00:00 PALLIATIVE CARE PHYSICIAN, 0 gabapentin 2023-0 No 100 mg, 1 Me moria 100 mg oral 2-27 cap, l capsule 17:20: Route: PO, Herm bernie 00 Drug form: CAP, Daily, Dosing Weight 86.364, kg, Priority: NOW, 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/27/22 11:20:00 PALLIATIVE CARE PHYSICIAN, 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, Stop date: 12/27/22 9:00:00 CDT, 0 gabapentin 2023-0 No 100 mg, 1 Me moria 100 mg oral 2-27 cap, l capsule 17:20: Route: PO, Herm bernie 00 Drug form: CAP, Daily, Dosing Weight 86.364, kg, Priority: NOW, 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/27/22 11:20:00 PALLIATIVE CARE PHYSICIAN, 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, Stop date: 12/27/22 9:00:00 CDT, 0 gabapentin 2023-0 No 100 mg, 1 Me moria 100 mg oral 2-27 cap, l capsule 17:20: Route: PO, Herm bernie 00 Drug form: CAP, Daily, Dosing Weight 86.364, kg, Priority: NOW, 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/27/22 11:20:00 PALLIATIVE CARE PHYSICIAN, 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, Stop date: 12/27/22 9:00:00 CDT, 0 levETIRAcet No Notes: Jose Francisco zhang am 2-27 (Same l 15:00: as:Keppra) Raul docusate No Notes: Memoria 2-27 (Same as: l 15:00: Colace) Raul (Do Not Crush) senna No Notes: Memoria 2-27 (Same as: l 15:00: Senokot) Raul Saline No Notes: Memoria Flush 0.9% 2-27 (Same as: l 15:00: BD [place] Posiflush) levETIRAcet No Notes: Jose Francisco zhang am 2-27 (Same l 15:00: as:Keppra) [place] docusate No Notes: Memoria 2-27 (Same as: l 15:00: Colace) Raul (Do Not Crush) senna No Notes: Memoria 2-27 (Same as: l 15:00: Senokot) [place] Saline No Notes: Memoria Flush 0.9% 2-27 (Same as: l 15:00: BD Raul Posiflush) levETIRAcet No Notes: Jose Francisco zhang am 2-27 (Same l 15:00: as:Keppra) Raul docusate No Notes: Memoria 2-27 (Same as: l 15:00: Colace) [place] (Do Not Crush) senna No Notes: Memoria 2-27 (Same as: l 15:00: Senokot) Raul Saline No Notes: Memoria Flush 0.9% 2-27 (Same as: l 15:00: BD Raul Posiflush) acetaminoph No Notes: Do M emoria en 2- not exceed l 09:01: 4 gm/day. [place] (Same as: Tylenol) bisacodyl No Notes: Memori a 2-27 (Same As: l 09:01: Dulcolax, [place] Bisco-Lax) ondansetron No Notes: Jose Francisco zhang 2-27 (Same as: l 09:: Zofran) MEDICATION WASTE Product Size: 4 mg Product Wasted: ___ mg hydrALAZINE No Notes: Jose Francisco zhang 2-27 (Same as: l 09:: Apresoline ) Push over 5 minutes labetalol No 10 mg, 2 Jose Francisco zhang 2-27 mL, Route: l 09:: IVP, Drug form: INJ, Q15Min, Dosing Weight 86.364, kg, 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/27/22 3:01:00 PALLIATIVE CARE PHYSICIAN, Duration: 3 doses or times, Stop date: 11/27/22 3:31:00 PALLIATIVE CARE PHYSICIAN, 0 Tylenol No Notes: Do Memor ia with 2-27 not exceed l Codeine #3 09:01: 4gm/day of H ermann oral tablet 00 acetaminop hen. (Same as: Tylenol with Codeine # 3) tramadol No Notes: Not Mem oria 2-27 to exceed l 09:01: 400mg/day. [place] (Same As: Ultram) Saline No Notes: Memoria Flush 0.9% 11-27 (Same as: l 09:01: BD Posiflush) Insulin No Notes: Memoria regular - (Same as: l 09:01: Humulin R) Roll in palms of hands gently; Do not shake vigorously . WASTE: F/P - Black; E - Municipal Trash Bin Stable for 31 days at room temperatur e Expires in days from ____Date acetaminoph No Notes: Do M emoria en 2- not exceed l 09:01: 4 gm/day. Raul 00 (Same as: Tylenol) bisacodyl No Notes: Memori a 2-27 (Same As: l 09:01: Dulcolax, [place] Bisco-Lax) ondansetron No Notes: Jose Francisco zhang 2-27 (Same as: l 09:01: Zofran) [place] 00 MEDICATION WASTE Product Size: 4 mg Product Wasted: ___ mg hydrALAZINE No Notes: Jose Francisco zhang 2-27 (Same as: l 09:01: Apresoline ) Push over 5 minutes labetalol No 10 mg, 2 Jose Francisco zhang 2-27 mL, Route: l 09:01: IVP, Drug form: INJ, Q15Min, Dosing Weight 86.364, kg, 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/27/22 3:01:00 PALLIATIVE CARE PHYSICIAN, Duration: 3 doses or times, Stop date: 11/27/22 3:31:00 PALLIATIVE CARE PHYSICIAN, 0 Tylenol No Notes: Do Memor ia with 2-27 not exceed l Codeine #3 09:01: 4gm/day of H ermann oral tablet 00 acetaminop hen. (Same as: Tylenol with Codeine # 3) tramadol No Notes: Not Mem oria 2-27 to exceed l 09:01: 400mg/day. Raul 00 (Same As: Ultram) Saline No Notes: Memoria Flush 0.9% - (Same as: l 09:01: BD Posiflush) Insulin No Notes: Memoria regular - (Same as: l 09:01: Humulin R) Roll in palms of hands gently; Do not shake vigorously . WASTE: F/P - Black; E - Municipal Trash Bin Stable for 31 days at room temperatur e Expires in days from ____Date acetaminoph No Notes: Do M emoria en 2- not exceed l 09:01: 4 gm/day. Raul 00 (Same as: Tylenol) bisacodyl No Notes: Memori a 2-27 (Same As: l 09:01: Dulcolax, Raul Bisco-Lax) ondansetron No Notes: Jose Francisco zhang 2-27 (Same as: l 09:: Zofran) MEDICATION WASTE Product Size: 4 mg Product Wasted: ___ mg hydrALAZINE No Notes: Jose Francisco zhang 2-27 (Same as: l 09:: Apresoline ) Push over 5 minutes labetalol No 10 mg, 2 Jose Francisco zhang 2-27 mL, Route: l 09:01: IVP, Drug form: INJ, Q15Min, Dosing Weight 86.364, kg, 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/27/22 3:01:00 PALLIATIVE CARE PHYSICIAN, Duration: 3 doses or times, Stop date: 11/27/22 3:31:00 PALLIATIVE CARE PHYSICIAN, 0 Tylenol No Notes: Do Memor ia with 2-27 not exceed l Codeine #3 09:01: 4gm/day of H ermann oral tablet 00 acetaminop hen. (Same as: Tylenol with Codeine # 3) tramadol No Notes: Not Mem oria 2-27 to exceed l 09:01: 400mg/day. Raul 00 (Same As: Ultram) Saline No Notes: Memoria Flush 0.9% 11-27 (Same as: l 09:: BD Posiflush) Insulin No Notes: Memoria regular - (Same as: l 09:01: Humulin R) Roll in palms of hands gently; Do not shake vigorously . WASTE: F/P - Black; E - Municipal Trash Bin Stable for 31 days at room temperatur e Expires in days from ____Date acetaminoph No 1,000 mg, M emoria en 11-27 Route: PO, l 06:27: Drug form: Raul 00 TAB, ONCE, Dosing Weight 86.364, kg, Priority: STAT, 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/27/22 0:27:00 PALLIATIVE CARE PHYSICIAN, Stop date: 11/27/22 0:27:00 PALLIATIVE CARE PHYSICIAN Keppra No 1,000 mg, Memori a - Route: l 06:27: IVPB, Drug Raul 00 form: INJ, ONCE, Dosing Weight 86.364, kg, Loading Dose, Priority: STAT, 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/27/22 0:27:00 PALLIATIVE CARE PHYSICIAN, Stop date: 11/27/22 0:27:00 PALLIATIVE CARE PHYSICIAN acetaminoph 3-0 No 1,000 mg, M emoria en 11-27 Route: PO, l 06:27: Drug form: Madison 00 TAB, ONCE, Dosing Weight 86.364, kg, Priority: STAT, 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/27/22 0:27:00 PALLIATIVE CARE PHYSICIAN, Stop date: 11/27/22 0:27:00 PALLIATIVE CARE PHYSICIAN Keppra 2022-0 No 1,000 mg, Memori a 11-27 Route: l 06:27: IVPB, Drug Raul 00 form: INJ, ONCE, Dosing Weight 86.364, kg, Loading Dose, Priority: STAT, 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/27/22 0:27:00 PALLIATIVE CARE PHYSICIAN, Stop date: 11/27/22 0:27:00 PALLIATIVE CARE PHYSICIAN acetaminoph 2022-0 No 1,000 mg, M emoria en 11-27 Route: PO, l 06:27: Drug form: [place] 00 TAB, ONCE, Dosing Weight 86.364, kg, Priority: STAT, 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/27/22 0:27:00 PALLIATIVE CARE PHYSICIAN, Stop date: 11/27/22 0:27:00 PALLIATIVE CARE PHYSICIAN Keppra 2022-0 No 1,000 mg, Memori a 11-27 Route: l 06:27: IVPB, Drug Madison 00 form: INJ, ONCE, Dosing Weight 86.364, kg, Loading Dose, Priority: STAT, 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/27/22 0:27:00 PALLIATIVE CARE PHYSICIAN, Stop date: 11/27/22 0:27:00 PALLIATIVE CARE PHYSICIAN heparin 2022-0 No Notes: Memoria 5000 2-22 porcine l units/mL 22:00: heparin Ajay n injectable 00 solution heparin 2022- No Notes: Memoria 5000 2-22 porcine l units/mL 22:00: heparin Ajay n injectable 00 solution heparin 2022-0 No Notes: Memoria 5000 2-22 porcine l units/mL 22:00: heparin Ajay n injectable 00 solution Tylenol 0 Yes 1 tab, PO, Jose Francisco zhang with 2-22 Q6H, PRN l Codeine #3 19:14: Pain Score H ermann oral tablet 00 4-6, X 3 day, # 12 tab, 0 Refill(s), Pharmacy: [facility] #[id number], 149.86, cm, 11/21/22 4:11:00 PALLIATIVE CARE PHYSICIAN, Height, 86.364, kg, 11/21/22 4:11:00 PALLIATIVE CARE PHYSICIAN, Weight Tylenol 2023-0 No 1 tab, PO, Jose Francisco zhang with 2-22 Q6H, PRN l Codeine #3 19:14: Pain Score H ermann oral tablet 00 4-6, X 3 day, # 12 tab, 0 Refill(s), Pharmacy: [facility] #[id number], 149.86, cm, 11/21/22 4:11:00 PALLIATIVE CARE PHYSICIAN, Height, 86.364, kg, 11/21/22 4:11:00 PALLIATIVE CARE PHYSICIAN, Weight Tylenol 2023-0 No 1 tab, PO, Jose Francisco zhang with 2-22 Q6H, PRN l Codeine #3 19:14: Pain Score H ermann oral tablet 00 4-6, X 3 day, # 12 tab, 0 Refill(s), Pharmacy: [facility] #[id number], 149.86, cm, 11/21/22 4:11:00 PALLIATIVE CARE PHYSICIAN, Height, 86.364, kg, 11/21/22 4:11:00 PALLIATIVE CARE PHYSICIAN, Weight Tylenol 2023-0 Yes 1 tab, PO, Jose Francisco zhang with 2-22 Q6H, PRN l Codeine #3 19:14: Pain Score H ermann oral tablet 00 4-6, X 3 day, # 12 tab, 0 Refill(s), Pharmacy: [facility] #[id number], 149.86, cm, 11/21/22 4:11:00 PALLIATIVE CARE PHYSICIAN, Height, 86.364, kg, 11/21/22 4:11:00 PALLIATIVE CARE PHYSICIAN, Weight Tylenol 2023-0 No 1 tab, PO, Jose Francisco zhang with 2-22 Q6H, PRN l Codeine #3 19:14: Pain Score H ermann oral tablet 00 4-6, X 3 day, # 12 tab, 0 Refill(s), Pharmacy: [facility] #[id number], 149.86, cm, 11/21/22 4:11:00 PALLIATIVE CARE PHYSICIAN, Height, 86.364, kg, 11/21/22 4:11:00 PALLIATIVE CARE PHYSICIAN, Weight gabapentin 2022-0 Yes 100 mg = 1 M emoria 100 mg oral 2-22 cap, PO, l capsule 19:13: Daily, # Ajay n 00 10 cap, 0 Refill(s), Pharmacy: [facility] #[id number], 149.86, cm, 11/21/22 4:11:00 PALLIATIVE CARE PHYSICIAN, Height, 86.364, kg, 11/21/22 4:11:00 PALLIATIVE CARE PHYSICIAN, Weight Keppra 500 2022-0 Yes 500 mg = 1 M emoria mg oral 2-22 tab, PO, l tablet 19:13: Q12H, # 12 Jessie nn 00 tab, 0 Refill(s), Pharmacy: [facility] #[id number], 149.86, cm, 11/21/22 4:11:00 PALLIATIVE CARE PHYSICIAN, Height, 86.364, kg, 11/21/22 4:11:00 PALLIATIVE CARE PHYSICIAN, Weight methocarbam 2022-0 Yes 500 mg = 1 Memoria ol 500 mg 2-22 tab, PO, l oral tablet 19:13: Q8H, X 10 H ermann 00 day, # 30 tab, 0 Refill(s), Pharmacy: [facility] #[id number], 149.86, cm, 11/21/22 4:11:00 PALLIATIVE CARE PHYSICIAN, Height, 86.364, kg, 11/21/22 4:11:00 PALLIATIVE CARE PHYSICIAN, Weight Zofran 4 mg 2022-0 Yes 4 mg = 1 Me moria oral tablet 2-22 tab, PO, l 19:13: Q8H, PRN Raul 00 Nausea/vom iting, X 7 day, # 21 tab, 0 Refill(s), Pharmacy: [facility] #[id number], 149.86, cm, 11/21/22 4:11:00 PALLIATIVE CARE PHYSICIAN, Height, 86.364, kg, 11/21/22 4:11:00 PALLIATIVE CARE PHYSICIAN, Weight gabapentin 2022-0 Yes 100 mg = 1 M emoria 100 mg oral 2-22 cap, PO, l capsule 19:13: Daily, # Ajay n 00 10 cap, 0 Refill(s), Pharmacy: [facility] #[id number], 149.86, cm, 11/21/22 4:11:00 PALLIATIVE CARE PHYSICIAN, Height, 86.364, kg, 11/21/22 4:11:00 PALLIATIVE CARE PHYSICIAN, Weight Keppra 500 2022-0 Yes 500 mg = 1 M emoria mg oral 2-22 tab, PO, l tablet 19:13: Q12H, # 12 Jessie nn 00 tab, 0 Refill(s), Pharmacy: [id number], 149.86, cm, 11/21/22 4:11:00 PALLIATIVE CARE PHYSICIAN, Height, 86.364, kg, 11/21/22 4:11:00 PALLIATIVE CARE PHYSICIAN, Weight methocarbam 2022-0 Yes 500 mg = 1 Memoria ol 500 mg 2-22 tab, PO, l oral tablet 19:13: Q8H, X 10 H ermann 00 day, # 30 tab, 0 Refill(s), Pharmacy: [id number], 149.86, cm, 11/21/22 4:11:00 PALLIATIVE CARE PHYSICIAN, Height, 86.364, kg, 11/21/22 4:11:00 PALLIATIVE CARE PHYSICIAN, Weight Zofran 4 mg 2022-0 Yes 4 mg = 1 Me moria oral tablet 2-22 tab, PO, l 19:13: Q8H, PRN Raul 00 Nausea/vom iting, X 7 day, # 21 tab, 0 Refill(s), Pharmacy: [id number], 149.86, cm, 11/21/22 4:11:00 PALLIATIVE CARE PHYSICIAN, Height, 86.364, kg, 11/21/22 4:11:00 PALLIATIVE CARE PHYSICIAN, Weight gabapentin 2022-0 Yes 100 mg = 1 M emoria 100 mg oral 2-22 cap, PO, l capsule 19:13: Daily, # Ajay n 00 10 cap, 0 Refill(s), Pharmacy: [id number], 149.86, cm, 11/21/22 4:11:00 PALLIATIVE CARE PHYSICIAN, Height, 86.364, kg, 11/21/22 4:11:00 PALLIATIVE CARE PHYSICIAN, Weight Keppra 500 2022-0 Yes 500 mg = 1 M emoria mg oral 2-22 tab, PO, l tablet 19:13: Q12H, # 12 Jessie nn 00 tab, 0 Refill(s), Pharmacy: [id number], 149.86, cm, 11/21/22 4:11:00 PALLIATIVE CARE PHYSICIAN, Height, 86.364, kg, 11/21/22 4:11:00 PALLIATIVE CARE PHYSICIAN, Weight methocarbam 2022-0 Yes 500 mg = 1 Memoria ol 500 mg 2-22 tab, PO, l oral tablet 19:13: Q8H, X 10 H ermann 00 day, # 30 tab, 0 Refill(s), Pharmacy: [id number], 149.86, cm, 11/21/22 4:11:00 PALLIATIVE CARE PHYSICIAN, Height, 86.364, kg, 11/21/22 4:11:00 PALLIATIVE CARE PHYSICIAN, Weight Zofran 4 mg 2022-0 Yes 4 mg = 1 Me moria oral tablet 2-22 tab, PO, l 19:13: Q8H, PRN Raul 00 Nausea/vom iting, X 7 day, # 21 tab, 0 Refill(s), Pharmacy: [id number], 149.86, cm, 11/21/22 4:11:00 PALLIATIVE CARE PHYSICIAN, Height, 86.364, kg, 11/21/22 4:11:00 PALLIATIVE CARE PHYSICIAN, Weight gabapentin 2022-0 Yes 100 mg = 1 M emoria 100 mg oral 2-22 cap, PO, l capsule 19:13: Daily, # Ajay n 00 10 cap, 0 Refill(s), Pharmacy: [id number], 149.86, cm, 11/21/22 4:11:00 PALLIATIVE CARE PHYSICIAN, Height, 86.364, kg, 11/21/22 4:11:00 PALLIATIVE CARE PHYSICIAN, Weight Keppra 500 2022-0 Yes 500 mg = 1 M emoria mg oral 2-22 tab, PO, l tablet 19:13: Q12H, # 12 Jessie nn 00 tab, 0 Refill(s), Pharmacy: [id number], 149.86, cm, 11/21/22 4:11:00 PALLIATIVE CARE PHYSICIAN, Height, 86.364, kg, 11/21/22 4:11:00 PALLIATIVE CARE PHYSICIAN, Weight methocarbam 2022-0 Yes 500 mg = 1 Memoria ol 500 mg 2-22 tab, PO, l oral tablet 19:13: Q8H, X 10 H ermann 00 day, # 30 tab, 0 Refill(s), Pharmacy: [id number], 149.86, cm, 11/21/22 4:11:00 PALLIATIVE CARE PHYSICIAN, Height, 86.364, kg, 11/21/22 4:11:00 PALLIATIVE CARE PHYSICIAN, Weight Zofran 4 mg 3-0 Yes 4 mg = 1 Me moria oral tablet 2-22 tab, PO, l 19:13: Q8H, PRN Raul 00 Nausea/vom iting, X 7 day, # 21 tab, 0 Refill(s), Pharmacy: [id number], 149.86, cm, 11/21/22 4:11:00 PALLIATIVE CARE PHYSICIAN, Height, 86.364, kg, 11/21/22 4:11:00 PALLIATIVE CARE PHYSICIAN, Weight gabapentin 2022-0 Yes 100 mg = 1 M emoria 100 mg oral 2-22 cap, PO, l capsule 19:13: Daily, # Ajay n 00 10 cap, 0 Refill(s), Pharmacy: [id number], 149.86, cm, 11/21/22 4:11:00 PALLIATIVE CARE PHYSICIAN, Height, 86.364, kg, 11/21/22 4:11:00 PALLIATIVE CARE PHYSICIAN, Weight Keppra 500 2022-0 Yes 500 mg = 1 M emoria mg oral 2-22 tab, PO, l tablet 19:13: Q12H, # 12 Jessie nn 00 tab, 0 Refill(s), Pharmacy: [id number], 149.86, cm, 11/21/22 4:11:00 PALLIATIVE CARE PHYSICIAN, Height, 86.364, kg, 11/21/22 4:11:00 PALLIATIVE CARE PHYSICIAN, Weight methocarbam 2022-0 Yes 500 mg = 1 Memoria ol 500 mg 2-22 tab, PO, l oral tablet 19:13: Q8H, X 10 H ermann 00 day, # 30 tab, 0 Refill(s), Pharmacy: [id number], 149.86, cm, 11/21/22 4:11:00 PALLIATIVE CARE PHYSICIAN, Height, 86.364, kg, 11/21/22 4:11:00 PALLIATIVE CARE PHYSICIAN, Weight Zofran 4 mg 3-0 Yes 4 mg = 1 Me moria oral tablet 2-22 tab, PO, l 19:13: Q8H, PRN Raul 00 Nausea/vom iting, X 7 day, # 21 tab, 0 Refill(s), Pharmacy: [facility] #[id number], 149.86, cm, 11/21/22 4:11:00 PALLIATIVE CARE PHYSICIAN, Height, 86.364, kg, 11/21/22 4:11:00 PALLIATIVE CARE PHYSICIAN, Weight donepezil No Notes: Memori a 2-22 (Same as: l 15:00: Aricept) Raul 00 ferrous No Notes: Memoria sulfate 2-22 Give with l 15:00: food. "Do Raul 00 Not Crush" Lasix No Notes: Memoria 2-22 (Same as: l 15:00: Lasix) May Madison 00 cause GI upset. Give with food or milk. levothyroxi No Notes: Jose Francisco zhang ne 2-22 Take 1 l 15:00: hour Raul 00 before or 2 hours after meal; Enteral feeds may interefere with the absorption of this medication .(Same as:Levothr oid) NIFEdipine No Notes: Memor ia 30 mg oral 2-22 (Same as: l tablet, 15:00: Adalat CC, Herm bernie extended 00 Procardia release XL) Give on empty stomach. Take 1 hour before or 2 hours after meal; "Avoid grapefruit and grapefruit juice". Do not crush Kerendia 10 No Kerendia Me moria mg oral 2-22 10 mg oral l tablet 15:00: tablet, 10 Jessie nn 00 mg, Route: PO, Daily, 11/22/22 9:00:00 PALLIATIVE CARE PHYSICIAN, 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, Stop date: 12/21/22 9:00:00 CDT donepezil No Notes: Memori a 2-22 (Same as: l 15:00: Aricept) Raul 00 ferrous No Notes: Memoria sulfate 2-22 Give with l 15:00: food. "Do Madison 00 Not Crush" Lasix No Notes: Memoria 2-22 (Same as: l 15:00: Lasix) May Raul 00 cause GI upset. Give with food or milk. levothyroxi No Notes: Jose Francisco zhang ne 2-22 Take 1 l 15:00: hour Raul 00 before or 2 hours after meal; Enteral feeds may interefere with the absorption of this medication .(Same as:Levothr oid) NIFEdipine No Notes: Memor ia 30 mg oral 2-22 (Same as: l tablet, 15:00: Adalat CC, Herm bernie extended 00 Procardia release XL) Give on empty stomach. Take 1 hour before or 2 hours after meal; "Avoid grapefruit and grapefruit juice". Do not crush Kerendia 10 No Kerendia Me moria mg oral 2-22 10 mg oral l tablet 15:00: tablet, 10 Jessie nn 00 mg, Route: PO, Daily, 11/22/22 9:00:00 PALLIATIVE CARE PHYSICIAN, 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, Stop date: 12/21/22 9:00:00 CDT donepezil No Notes: Memori a 2-22 (Same as: l 15:00: Aricept) Raul 00 ferrous No Notes: Memoria sulfate 2-22 Give with l 15:00: food. "Do Madison 00 Not Crush" Lasix No Notes: Memoria 2-22 (Same as: l 15:00: Lasix) May Raul 00 cause GI upset. Give with food or milk. levothyroxi No Notes: Jose Francisco zhang ne 2-22 Take 1 l 15:00: hour Raul 00 before or 2 hours after meal; Enteral feeds may interefere with the absorption of this medication .(Same as:Levothr oid) NIFEdipine No Notes: Memor ia 30 mg oral 2-22 (Same as: l tablet, 15:00: Adalat CC, Herm bernie extended 00 Procardia release XL) Give on empty stomach. Take 1 hour before or 2 hours after meal; "Avoid grapefruit and grapefruit juice". Do not crush Kerendia 10 No Kerendia Me moria mg oral 2-22 10 mg oral l tablet 15:00: tablet, 10 Jessie nn 00 mg, Route: PO, Daily, 11/22/22 9:00:00 PALLIATIVE CARE PHYSICIAN, 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, Stop date: 12/21/22 9:00:00 CDT Keppra 500 No Notes: Memor ia mg oral 2-22 (Same l tablet 03:00: as:Keppra) Coreg No Notes: Memoria 2-22 Give with l 03:00: food. (Same As: Coreg) Lexapro 0 No 20 mg, 2 Memori a 2-22 tab, l 03:00: Route: PO, Drug form: TAB, Q12H, Dosing Weight 86.364, kg, 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/22 21:00:00 PALLIATIVE CARE PHYSICIAN, 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, Stop date: 12/21/22 9:00:00 CDT, 0 Pepcid 40 No Notes: Memori a mg oral 2-22 (Same as: l tablet 03:00: Pepcid) lovastatin No 20 mg, 1 Mem oria 2-22 tab, l 03:00: Route: PO, Drug form: TAB, Bedtime, Dosing Weight 86.364, kg, 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/22 21:00:00 PALLIATIVE CARE PHYSICIAN, 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, Stop date: 12/20/22 21:00:00 CDT primidone 0 No 50 mg, 1 Jose Francisco zhang 2-22 tab, l 03:00: Route: PO, Drug form: TAB, Bedtime, Dosing Weight 86.364, kg, 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/22 21:00:00 PALLIATIVE CARE PHYSICIAN, 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, Stop date: 12/20/22 21:00:00 CDT, 0 rOPINIRole 0 No 4 mg, 2 Jose Francisco zhang 2-22 tab, l 03:00: Route: PO, Drug form: TAB, Q12H, Dosing Weight 86.364, kg, 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/22 21:00:00 PALLIATIVE CARE PHYSICIAN, 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, Stop date: 12/21/22 9:00:00 CDT, 0 Lipitor 0 No Notes: Memoria 2-22 (Same As: l 03:00: Lipitor) Keppra 500 0 No Notes: Memor ia mg oral 2-22 (Same l tablet 03:00: as:Keppra) Jessie Coreg No Notes: Memoria 2-22 Give with l 03:00: food. (Same As: Coreg) Lexapro No 20 mg, 2 Memori a 2-22 tab, l 03:00: Route: PO, Drug form: TAB, Q12H, Dosing Weight 86.364, kg, 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/22 21:00:00 PALLIATIVE CARE PHYSICIAN, 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, Stop date: 12/21/22 9:00:00 CDT, 0 Pepcid 40 No Notes: Memori a mg oral 2-22 (Same as: l tablet 03:00: Pepcid) lovastatin No 20 mg, 1 Mem oria 2-22 tab, l 03:00: Route: PO, Drug form: TAB, Bedtime, Dosing Weight 86.364, kg, 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/22 21:00:00 PALLIATIVE CARE PHYSICIAN, 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, Stop date: 12/20/22 21:00:00 CDT primidone No 50 mg, 1 Jose Francisco zhang 2-22 tab, l 03:00: Route: PO, Drug form: TAB, Bedtime, Dosing Weight 86.364, kg, 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/22 21:00:00 PALLIATIVE CARE PHYSICIAN, 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, Stop date: 12/20/22 21:00:00 CDT, 0 rOPINIRole 0 No 4 mg, 2 Jose Francisco zhang 2-22 tab, l 03:00: Route: PO, Drug form: TAB, Q12H, Dosing Weight 86.364, kg, 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/22 21:00:00 PALLIATIVE CARE PHYSICIAN, 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, Stop date: 12/21/22 9:00:00 CDT, 0 Lipitor No Notes: Memoria 2-22 (Same As: l 03:00: Lipitor) Keppra 500 No Notes: Memor ia mg oral 2-22 (Same l tablet 03:00: as:Keppra) Jessie Coreg No Notes: Memoria 2-22 Give with l 03:00: food. (Same As: Coreg) Lexapro 2022-0 No 20 mg, 2 Memori a 2-22 tab, l 03:00: Route: PO, Drug form: TAB, Q12H, Dosing Weight 86.364, kg, 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/22 21:00:00 PALLIATIVE CARE PHYSICIAN, 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, Stop date: 12/21/22 9:00:00 CDT, 0 Pepcid 40 2022-0 No Notes: Memori a mg oral 2-22 (Same as: l tablet 03:00: Pepcid) lovastatin 2022-0 No 20 mg, 1 Mem oria 2-22 tab, l 03:00: Route: PO, Drug form: TAB, Bedtime, Dosing Weight 86.364, kg, 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/22 21:00:00 PALLIATIVE CARE PHYSICIAN, 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, Stop date: 12/20/22 21:00:00 CDT primidone 2022-0 No 50 mg, 1 Jose Francisco zhang 2-22 tab, l 03:00: Route: PO, Drug form: TAB, Bedtime, Dosing Weight 86.364, kg, 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/22 21:00:00 PALLIATIVE CARE PHYSICIAN, 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, Stop date: 12/20/22 21:00:00 CDT, 0 rOPINIRole 2022-0 No 4 mg, 2 Jose Francisco zhang 2-22 tab, l 03:00: Route: PO, Drug form: TAB, Q12H, Dosing Weight 86.364, kg, 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/22 21:00:00 PALLIATIVE CARE PHYSICIAN, 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, Stop date: 12/21/22 9:00:00 CDT, 0 Lipitor 2022-0 No Notes: Memoria 2-22 (Same As: l 03:00: Lipitor) Robaxin 2022-0 No Notes: Memoria 2-22 (Same l 00:27: as:Robaxin ) Robaxin 2022-0 No Notes: Memoria 2-22 (Same l 00:27: as:Robaxin ) Robaxin 2022-0 No Notes: Memoria 2-22 (Same l 00:27: as:Robaxin ) Tylenol 2023-0 No Notes: Do Memor ia with 2-22 not exceed l Codeine #3 00:21: 4gm/day of H ermann oral tablet 00 acetaminop hen. (Same as: Tylenol with Codeine # 3) Tylenol No Notes: Do Memor ia with 2-22 not exceed l Codeine #3 00:21: 4gm/day of H ermann oral tablet 00 acetaminop hen. (Same as: Tylenol with Codeine # 3) Tylenol No Notes: Do Memor ia with 2-22 not exceed l Codeine #3 00:21: 4gm/day of H ermann oral tablet 00 acetaminop hen. (Same as: Tylenol with Codeine # 3) gabapentin No Notes: Memor ia 100 mg oral 2-22 (Same as: l capsule 00:16: Neurontin) Herm bernie gabapentin No Notes: Memor ia 100 mg oral 2-22 (Same as: l capsule 00:16: Neurontin) Herm bernie gabapentin No Notes: Memor ia 100 mg oral 2-22 (Same as: l capsule 00:16: Neurontin) Herm bernie normal No 1,000 mL, Memori a saline 0.9% 2-21 Rate: 75 l IV 1,000 mL 22:13: ml/hr, Herm bernie 00 Infuse over: 13.3 hr, Route: IV, Dosing Weight 86.364 kg, Total Volume: 1,000, 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/22 16:13:00 PALLIATIVE CARE PHYSICIAN, 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, Stop date: 12/21/22 16:12:00 CDT, BSA: 1.93 m2, 0 normal No 1,000 mL, Memori a saline 0.9% 2-21 Rate: 75 l IV 1,000 mL 22:13: ml/hr, Herm bernie 00 Infuse over: 13.3 hr, Route: IV, Dosing Weight 86.364 kg, Total Volume: 1,000, 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/22 16:13:00 PALLIATIVE CARE PHYSICIAN, 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, Stop date: 12/21/22 16:12:00 CDT, BSA: 1.93 m2, 0 normal No 1,000 mL, Memori a saline 0.9% 2-21 Rate: 75 l IV 1,000 mL 22:13: ml/hr, Herm bernie 00 Infuse over: 13.3 hr, Route: IV, Dosing Weight 86.364 kg, Total Volume: 1,000, 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/22 16:13:00 PALLIATIVE CARE PHYSICIAN, 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, Stop date: 12/21/22 16:12:00 CDT, BSA: 1.93 m2, 0 Vitamin D2 Yes 50,000 Memor ia 50,000 [...] l units (1.25 18:29: 1 cap, PO, Madison mg) oral 00 qWeek, capsule then 1 cap qmonth, 0 Refill(s) Voltaren 2022-0 Yes 2 gm, TOP, Mem oria Topical 1% 2-21 QID, PRN, l topical gel 18:29: 0 Ajay n 00 Refill(s) Vitamin D2 0 Yes 50,000 Memor ia 50,000 intl 2-21 IntlUnit = l units (1.25 18:29: 1 cap, PO, Madison mg) oral 00 qWeek, capsule then 1 cap qmonth, 0 Refill(s) Voltaren 2022-0 Yes 2 gm, TOP, Mem oria Topical 1% 2-21 QID, PRN, l topical gel 18:29: 0 Ajay n 00 Refill(s) Vitamin D2 0 Yes 50,000 Memor ia 50,000 intl 2-21 IntlUnit = l units (1.25 18:29: 1 cap, PO, Raul mg) oral 00 qWeek, capsule then 1 cap qmonth, 0 Refill(s) Voltaren 2023-0 Yes 2 gm, TOP, Mem oria Topical 1% 2-21 QID, PRN, l topical gel 18:29: 0 Ajay n 00 Refill(s) Voltaren 0 Yes 2 gm, TOP, Mem oria Topical 1% 2-21 QID, PRN, l topical gel 18:29: 0 Ajay n 00 Refill(s) Vitamin D2 0 Yes 50,000 Memor ia 50,000 intl 2-21 IntlUnit = l units (1.25 18:29: 1 cap, PO, Madison mg) oral 00 qWeek, capsule then 1 cap qmonth, 0 Refill(s) fluocinonid 0 Yes 1 appl, Mem oria e topical 2-21 TOP, BID, l 0.05% 18:28: 0 [place] solution 00 Refill(s) ketoconazol 2022-0 Yes 1 appl, Mem [facility]ria e topical 2-21 TOP, BID, l 2% cream 18:28: 0 [place] 00 Refill(s) halobetasol 2022-0 Yes 1 appl, [facility] topical 2-21 TOP, BID, l 0.05% cream 18:28: PRN, 0 Herm bernie 00 Refill(s) fluocinonid 2022-0 Yes 1 appl, Mem oria e topical 2-21 TOP, BID, l 0.05% 18:28: 0 [place] solution 00 Refill(s) ketoconazol 2022-0 Yes 1 appl, Mem oria e topical 2-21 TOP, BID, l 2% cream 18:28: 0 Raul 00 Refill(s) halobetasol 2022-0 Yes 1 appl, [facility] topical 2-21 TOP, BID, l 0.05% cream 18:28: PRN, 0 Herm bernie 00 Refill(s) fluocinonid 2022-0 Yes 1 appl, Mem oria e topical 2-21 TOP, BID, l 0.05% 18:28: 0 Raul solution 00 Refill(s) ketoconazol 2022-0 Yes 1 appl, Mem oria e topical 2-21 TOP, BID, l 2% cream 18:28: 0 Raul 00 Refill(s) halobetasol 2023-0 Yes 1 appl, [facility] topical 2-21 TOP, BID, l 0.05% cream 18:28: PRN, 0 Herm bernie 00 Refill(s) fluocinonid 2022-0 Yes 1 appl, Mem oria e topical 2-21 TOP, BID, l 0.05% 18:28: 0 Raul solution 00 Refill(s) ketoconazol 2022-0 Yes 1 appl, Mem oria e topical 2-21 TOP, BID, l 2% cream 18:28: 0 [place] 00 Refill(s) halobetasol 2022-0 Yes 1 appl, [facility] topical 2-21 TOP, BID, l 0.05% cream 18:28: PRN, 0 Herm bernie 00 Refill(s) fluocinonid 2022-0 Yes 1 appl, Mem oria e topical 2-21 TOP, BID, l 0.05% 18:28: 0 [place] solution 00 Refill(s) ketoconazol 2022-0 Yes 1 appl, Mem oria e topical 2-21 TOP, BID, l 2% cream 18:28: 0 Raul 00 Refill(s) halobetasol 2022-0 Yes 1 appl, [facility] topical 2-21 TOP, BID, l 0.05% cream 18:28: PRN, 0 Herm bernie 00 Refill(s) levothyroxi Yes 112 Memori a ne 112 mcg 2-21 microgram l (0.112 mg) 18:27: = 1 tab, Her ivory oral tablet 00 PO, Daily, 0 Refill(s) Lasix 80 mg 0 Yes 80 mg = 1 M emoria oral tablet 2-21 tab, PO, l 18:27: Daily, 0 [place] 00 Refill(s) Pepcid 40 2022-0 Yes 40 mg = 1 Mem [facility] mg oral 2-21 tab, PO, l tablet 18:27: Bedtime, 0 Jessie nn 00 Refill(s) primidone 2022-0 Yes 50 mg = 1 Mem oria 50 mg oral 2-21 tab, PO, l tablet 18:27: Bedtime, 0 Jessie nn 00 Refill(s) ferrous 2022-0 Yes 325 mg = 1 Jose Francisco zhang sulfate 325 2-21 tab, PO, l mg oral 18:27: Daily, 0 Ajay n enteric 00 Refill(s) coated tablet levothyroxi 2022-0 Yes 112 Memori a ne 112 mcg 2-21 microgram l (0.112 mg) 18:27: = 1 tab, Her ivory oral tablet 00 PO, Daily, 0 Refill(s) Lasix 80 mg 2022-0 Yes 80 mg = 1 M emoria oral tablet 2-21 tab, PO, l 18:27: Daily, 0 Raul 00 Refill(s) Pepcid 40 2022-0 Yes 40 mg = 1 Mem oria mg oral 2-21 tab, PO, l tablet 18:27: Bedtime, 0 Jessie nn 00 Refill(s) primidone 2022-0 Yes 50 mg = 1 Mem oria 50 mg oral 2-21 tab, PO, l tablet 18:27: Bedtime, 0 Jessie nn 00 Refill(s) ferrous 2022-0 Yes 325 mg = 1 Jose Francisco zhang sulfate 325 2-21 tab, PO, l mg oral 18:27: Daily, 0 Ajay n enteric 00 Refill(s) coated tablet levothyroxi 2022-0 Yes 112 Memori a ne 112 mcg 2-21 microgram l (0.112 mg) 18:27: = 1 tab, Her ivory oral tablet 00 PO, Daily, 0 Refill(s) Lasix 80 mg 2022-0 Yes 80 mg = 1 M emoria oral tablet 2-21 tab, PO, l 18:27: Daily, 0 [place] 00 Refill(s) Pepcid 40 2022-0 Yes 40 mg = 1 Mem oria mg oral 2-21 tab, PO, l tablet 18:27: Bedtime, 0 Jessie nn 00 Refill(s) primidone 3-0 Yes 50 mg = 1 Mem oria 50 mg oral 2-21 tab, PO, l tablet 18:27: Bedtime, 0 Jessie nn 00 Refill(s) ferrous 2022-0 Yes 325 mg = 1 Jose Francisco zhang sulfate 325 2-21 tab, PO, l mg oral 18:27: Daily, 0 Ajay n enteric 00 Refill(s) coated tablet levothyroxi 2022-0 Yes 112 Memori a ne 112 mcg 2-21 microgram l (0.112 mg) 18:27: = 1 tab, Her ivory oral tablet 00 PO, Daily, 0 Refill(s) Lasix 80 mg 0 Yes 80 mg = 1 M emoria oral tablet 2-21 tab, PO, l 18:27: Daily, 0 Raul 00 Refill(s) Pepcid 40 2022-0 Yes 40 mg = 1 Mem oria mg oral 2-21 tab, PO, l tablet 18:27: Bedtime, 0 Jessie nn 00 Refill(s) primidone 2022-0 Yes 50 mg = 1 Mem oria 50 mg oral 2-21 tab, PO, l tablet 18:27: Bedtime, 0 Jessie nn 00 Refill(s) ferrous 2022-0 Yes 325 mg = 1 Jose Francisco zhang sulfate 325 2-21 tab, PO, l mg oral 18:27: Daily, 0 Ajay n enteric 00 Refill(s) coated tablet levothyroxi Yes 112 Memori a ne 112 mcg 2-21 microgram l (0.112 mg) 18:27: = 1 tab, Her ivory oral tablet 00 PO, Daily, 0 Refill(s) Lasix 80 mg 0 Yes 80 mg = 1 M emoria oral tablet 2-21 tab, PO, l 18:27: Daily, 0 [place] 00 Refill(s) Pepcid 40 2022-0 Yes 40 mg = 1 Mem oria mg oral 2-21 tab, PO, l tablet 18:27: Bedtime, 0 Jessie nn 00 Refill(s) primidone 2022-0 Yes 50 mg = 1 Mem oria 50 mg oral 2-21 tab, PO, l tablet 18:27: Bedtime, 0 Jessie nn 00 Refill(s) ferrous 2022-0 Yes 325 mg = 1 Jose Francisco zhang sulfate 325 2-21 tab, PO, l mg oral 18:27: Daily, 0 Ajay n enteric 00 Refill(s) coated tablet donepezil 0 Yes 10 mg = 1 Mem oria 10 mg oral 2-21 tab, PO, l tablet 18:26: Daily, 0 [place] 00 Refill(s) NIFEdipine 2022-0 Yes 30 mg = 1 Me moria (Eqv-Procar 2-21 tab, PO, l afua XL) 30 18:26: Daily, 0 Her ivory mg oral 00 Refill(s) tablet, extended release Kerendia 10 Yes 10 mg = 1 M emoria mg oral 2-21 tab, PO, l tablet 18:26: Daily, 0 [place] 00 Refill(s) lovastatin 2022-0 Yes 20 mg = 1 Me moria 20 mg oral 2-21 tab, PO, l tablet 18:26: Daily, 0 [place] 00 Refill(s) donepezil 2022-0 Yes 10 mg [...] tab, PO, l tablet 18:26: Daily, 0 [place] 00 Refill(s) donepezil 2022-0 Yes 10 mg = 1 Mem oria 10 mg oral 2-21 tab, PO, l tablet 18:26: Daily, 0 [place] 00 Refill(s) NIFEdipine 2022-0 Yes 30 mg = 1 Me moria (Eqv-Procar 2-21 tab, PO, l afua XL) 30 18:26: Daily, 0 Her ivory mg oral 00 Refill(s) tablet, extended release Kerendia 10 0 Yes 10 mg = 1 M emoria mg oral 2-21 tab, PO, l tablet 18:26: Daily, 0 Raul 00 Refill(s) lovastatin 2022-0 Yes 20 mg = 1 Me moria 20 mg oral 2-21 tab, PO, l tablet 18:26: Daily, 0 [place] 00 Refill(s) donepezil 2022-0 Yes 10 mg = 1 Mem oria 10 mg oral 2-21 tab, PO, l tablet 18:26: Daily, 0 Raul 00 Refill(s) NIFEdipine 2022-0 Yes 30 mg = 1 Me moria (Eqv-Procar 2-21 tab, PO, l afua XL) 30 18:26: Daily, 0 Her ivory mg oral 00 Refill(s) tablet, extended release Kerendia 10 0 Yes 10 mg = 1 M emoria mg oral 2-21 tab, PO, l tablet 18:26: Daily, 0 [place] 00 Refill(s) lovastatin 2022-0 Yes 20 mg = 1 Me moria 20 mg oral 2-21 tab, PO, l tablet 18:26: Daily, 0 [place] 00 Refill(s) donepezil 2022-0 Yes 10 mg = 1 Mem oria 10 mg oral 2-21 tab, PO, l tablet 18:26: Daily, 0 Raul 00 Refill(s) NIFEdipine 2022-0 Yes 30 mg = 1 Me moria (Eqv-Procar 2-21 tab, PO, l afua XL) 30 18:26: Daily, 0 Her ivory mg oral 00 Refill(s) tablet, extended release Kerendia 10 0 Yes 10 mg = 1 M emoria mg oral 2-21 tab, PO, l tablet 18:26: Daily, 0 Raul 00 Refill(s) lovastatin 2022-0 Yes 20 mg = 1 Me moria 20 mg oral 2-21 tab, PO, l tablet 18:26: Daily, 0 [place] 00 Refill(s) Coreg 25 mg 2022-0 Yes 25 mg = 1 M emoria oral tablet 2-21 tab, PO, l 18:25: BID, 0 Raul 00 Refill(s) Lexapro 20 2022-0 Yes 20 mg = 1 Me moria mg oral 2-21 tab, PO, l tablet 18:25: BID, 0 [place] 00 Refill(s) rOPINIRole 2022-0 Yes 4 mg = 1 Mem oria 4 mg oral 2-21 tab, PO, l tablet 18:25: BID, 0 Raul 00 Refill(s) Coreg 25 mg 2022-0 Yes 25 mg = 1 M emoria oral tablet 2-21 tab, PO, l 18:25: BID, 0 [place] 00 Refill(s) Lexapro 20 2022-0 Yes 20 mg = 1 Me moria mg oral 2-21 tab, PO, l tablet 18:25: BID, 0 [place] 00 Refill(s) rOPINIRole 2023-0 Yes 4 mg = 1 Mem oria 4 mg oral 2-21 tab, PO, l tablet 18:25: BID, 0 [place] 00 Refill(s) Coreg 25 mg 2023-0 Yes 25 mg = 1 M emoria oral tablet 2-21 tab, PO, l 18:25: BID, 0 Raul 00 Refill(s) Lexapro 20 2023-0 Yes 20 mg = 1 Me moria mg oral 2-21 tab, PO, l tablet 18:25: BID, 0 [place] 00 Refill(s) rOPINIRole 2023-0 Yes 4 mg = 1 Mem oria 4 mg oral 2-21 tab, PO, l tablet 18:25: BID, 0 [place] 00 Refill(s) Coreg 25 mg 2023-0 Yes 25 mg = 1 M emoria oral tablet 2-21 tab, PO, l 18:25: BID, 0 Raul 00 Refill(s) Lexapro 20 2023-0 Yes 20 mg = 1 Me moria mg oral 2-21 tab, PO, l tablet 18:25: BID, 0 Raul 00 Refill(s) rOPINIRole 2023-0 Yes 4 mg = 1 Mem oria 4 mg oral 2-21 tab, PO, l tablet 18:25: BID, 0 [place] 00 Refill(s) Coreg 25 mg 2023-0 Yes 25 mg = 1 M emoria oral tablet 2-21 tab, PO, l 18:25: BID, 0 Raul 00 Refill(s) Lexapro 20 2023-0 Yes 20 mg = 1 Me moria mg oral 2-21 tab, PO, l tablet 18:25: BID, 0 Raul 00 Refill(s) rOPINIRole 2023-0 Yes 4 mg = 1 Mem oria 4 mg oral 2-21 tab, PO, l tablet 18:25: BID, 0 [place] 00 Refill(s) pantoprazol 2023-0 Yes 40 mg = 1 M emoria e 40 mg 2-21 tab, PO, l oral 18:24: BID, 0 [place] enteric 00 Refill(s) coated tablet pantoprazol 2023-0 Yes 40 mg = 1 M emoria e 40 mg 2-21 tab, PO, l oral 18:24: BID, 0 Raul enteric 00 Refill(s) coated tablet pantoprazol 3-0 Yes 40 mg = 1 M emoria e 40 mg 2-21 tab, PO, l oral 18:24: BID, 0 [place] enteric 00 Refill(s) coated tablet pantoprazol 3-0 Yes 40 mg = 1 M emoria e 40 mg 2-21 tab, PO, l oral 18:24: BID, 0 Raul enteric 00 Refill(s) coated tablet pantoprazol 3-0 Yes 40 mg = 1 M emoria e 40 mg 2-21 tab, PO, l oral 18:24: BID, 0 [place] enteric 00 Refill(s) coated tablet Wellbutrin 3-0 Yes 150 mg = 1 M emoria SR 150 2-21 tab, PO, l mg/12 hours 18:23: BID, 0 Herm bernie oral 00 Refill(s) tablet, extended release Wellbutrin 3-0 Yes 150 mg = 1 M emoria SR 150 2-21 tab, PO, l mg/12 hours 18:23: BID, 0 Herm bernie oral 00 Refill(s) tablet, extended release Wellbutrin 3-0 Yes 150 mg = 1 M emoria SR 150 2-21 tab, PO, l mg/12 hours 18:23: BID, 0 Herm bernie oral 00 Refill(s) tablet, extended release Wellbutrin 3-0 Yes 150 mg = 1 M emoria SR 150 2-21 tab, PO, l mg/12 hours 18:23: BID, 0 Herm bernie oral 00 Refill(s) tablet, extended release Wellbutrin 3-0 Yes 150 mg = 1 M emoria SR 150 2-21 tab, PO, l mg/12 hours 18:23: BID, 0 Herm bernie oral 00 Refill(s) tablet, extended release levETIRAcet No Notes: Jose Francisco zhang am 11-21 Same as l 15:00: Keppra Raul 00 MEDICATION WASTE Product Size: 500 mg Product Wasted: ___ mg docusate No Notes: Memoria - (Same as: l 15:00: Colace) [place] (Do Not Crush) senna No Notes: Memoria 2-21 (Same as: l 15:00: Senokot) Raul 00 lidocaine No Notes: Memori a topical 2-21 Patch is l 15:00: applied to [place] 00 intact skin to cover painful area for up to 12 hours in a 24-hour period (12 hours on and 12 hours off). Please indicate the location of applicatio n site. Site 1: Remove old patch before applicatio n of new patch. (Same as Aspercreme Lidocaine Patch) Saline No Notes: Memoria Flush 0.9% 2-21 (Same as: l 15:00: BD Raul 00 Posiflush) levETIRAcet No Notes: Jose Francisco zhang am 2-21 Same as l 15:00: Keppra [place] 00 MEDICATION WASTE Product Size: 500 mg Product Wasted: ___ mg docusate No Notes: Memoria 2-21 (Same as: l 15:00: Colace) Raul 00 (Do Not Crush) senna No Notes: Memoria 2-21 (Same as: l 15:00: Senokot) [place] 00 lidocaine No Notes: Memori a topical 2-21 Patch is l 15:00: applied to [place] 00 intact skin to cover painful area for up to 12 hours in a 24-hour period (12 hours on and 12 hours off). Please indicate the location of applicatio n site. Site 1: Remove old patch before applicatio n of new patch. (Same as Aspercreme Lidocaine Patch) Saline No Notes: Memoria Flush 0.9% 2-21 (Same as: l 15:00: BD Raul 00 Posiflush) levETIRAcet No Notes: Jose Francisco zhang am 2-21 Same as l 15:00: Keppra Raul 00 MEDICATION WASTE Product Size: 500 mg Product Wasted: ___ mg docusate No Notes: Memoria 2-21 (Same as: l 15:00: Colace) [place] 00 (Do Not Crush) senna No Notes: Memoria 2-21 (Same as: l 15:00: Senokot) Raul lidocaine No Notes: Memori a topical 2-21 Patch is l 15:00: applied to intact skin to cover painful area for up to 12 hours in a 24-hour period (12 hours on and 12 hours off). Please indicate the location of applicatio n site. Site 1: Remove old patch before applicatio n of new patch. (Same as Aspercreme Lidocaine Patch) Saline No Notes: Memoria Flush 0.9% 2-21 (Same as: l 15:00: BD Posiflush) Sodium No 1,000 mL, Memori a Chloride 2-21 Rate: 50 l 0.9% IV 14:47: ml/hr, [place] 1,000 mL 00 Infuse over: 20 hr, Route: IV, Dosing Weight 86.364 kg, Total Volume: 1,000, 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/22 8:47:00 PALLIATIVE CARE PHYSICIAN, 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, Stop date: 12/21/22 8:46:00 CDT, BSA: 1.93 m2, 0 acetaminoph No Notes: Do M emoria en 2-21 not exceed l 14:47: 4 gm/day. (Same as: Tylenol) bisacodyl No Notes: Memori a 2-21 (Same As: l 14:47: Dulcolax, Bisco-Lax) ondansetron No Notes: Jose Francisco zhang 2-21 (Same as: l 14:47: Zofran) MEDICATION WASTE Product Size: 4 mg Product Wasted: ___ mg hydrALAZINE No Notes: Jose Francisco zhang 2-21 (Same as: l 14:47: Apresoline ) Push over 5 minutes labetalol No 10 mg, 2 Jose Francisco zhang 2-21 mL, Route: l 14:47: IVP, Drug form: INJ, Q15Min, Dosing Weight 86.364, kg, 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/22 8:47:00 PALLIATIVE CARE PHYSICIAN, Duration: 3 doses or times, Stop date: 11/21/22 9:17:00 PALLIATIVE CARE PHYSICIAN, 0 Saline No Notes: Memoria Flush 0.9% 2-21 (Same as: l 14:47: BD Posiflush) Sodium No 1,000 mL, Memori a Chloride 2-21 Rate: 50 l 0.9% IV 14:47: ml/hr, [place] 1,000 mL 00 Infuse over: 20 hr, Route: IV, Dosing Weight 86.364 kg, Total Volume: 1,000, 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/22 8:47:00 PALLIATIVE CARE PHYSICIAN, 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, Stop date: 12/21/22 8:46:00 CDT, BSA: 1.93 m2, 0 acetaminoph No Notes: Do M emoria en 2-21 not exceed l 14:47: 4 gm/day. (Same as: Tylenol) bisacodyl No Notes: Memori a 2-21 (Same As: l 14:47: Dulcolax, Bisco-Lax) ondansetron No Notes: Jose Francisco zhang 2-21 (Same as: l 14:47: Zofran) MEDICATION WASTE Product Size: 4 mg Product Wasted: ___ mg hydrALAZINE No Notes: Jose Francisco zhang 2-21 (Same as: l 14:47: Apresoline ) Push over 5 minutes labetalol No 10 mg, 2 Jose Francisco zhang 2-21 mL, Route: l 14:47: IVP, Drug form: INJ, Q15Min, Dosing Weight 86.364, kg, 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/22 8:47:00 PALLIATIVE CARE PHYSICIAN, Duration: 3 doses or times, Stop date: 11/21/22 9:17:00 PALLIATIVE CARE PHYSICIAN, 0 Saline No Notes: Memoria Flush 0.9% 2-21 (Same as: l 14:47: BD [place] 00 Posiflush) Sodium No 1,000 mL, Memori a Chloride 2-21 Rate: 50 l 0.9% IV 14:47: ml/hr, Raul 1,000 mL 00 Infuse over: 20 hr, Route: IV, Dosing Weight 86.364 kg, Total Volume: 1,000, 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/22 8:47:00 PALLIATIVE CARE PHYSICIAN, 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, Stop date: 12/21/22 8:46:00 CDT, BSA: 1.93 m2, 0 acetaminoph 2022-0 No Notes: Do M emoria en 2-21 not exceed l 14:47: 4 gm/day. (Same as: Tylenol) bisacodyl 0 No Notes: Memori a 2-21 (Same As: l 14:47: Dulcolax, Bisco-Lax) ondansetron No Notes: Jose Francisco zhang 2-21 (Same as: l 14:47: Zofran) MEDICATION WASTE Product Size: 4 mg Product Wasted: ___ mg hydrALAZINE No Notes: Jose Francisco zhang 2-21 (Same as: l 14:47: Apresoline ) Push over 5 minutes labetalol 0 No 10 mg, 2 Jose Francisco zhang 2-21 mL, Route: l 14:47: IVP, Drug form: INJ, Q15Min, Dosing Weight 86.364, kg, 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/22 8:47:00 PALLIATIVE CARE PHYSICIAN, Duration: 3 doses or times, Stop date: 11/21/22 9:17:00 PALLIATIVE CARE PHYSICIAN, 0 Saline 2022-0 No Notes: Memoria Flush 0.9% 2-21 (Same as: l 14:47: BD Posiflush) Tylenol 2022-0 No 1,000 mg, Memor ia 2-21 Route: PO, l 14:03: ONCE, Dosing Weight 86.364, kg, 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/22 8:03:00 PALLIATIVE CARE PHYSICIAN, Stop date: 11/21/22 8:03:00 PALLIATIVE CARE PHYSICIAN Tylenol 2022-0 No 1,000 mg, Memor ia 2-21 Route: PO, l 14:03: ONCE, Dosing Weight 86.364, kg, 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/22 8:03:00 PALLIATIVE CARE PHYSICIAN, Stop date: 11/21/22 8:03:00 PALLIATIVE CARE PHYSICIAN Tylenol No 1,000 mg, Memor ia -21 Route: PO, l 14:03: ONCE, Dosing Weight 86.364, kg, 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/22 8:03:00 PALLIATIVE CARE PHYSICIAN, Stop date: 11/21/22 8:03:00 PALLIATIVE CARE PHYSICIAN Saline No Notes: Memoria Flush 0.9% 2-21 (Same as: l 12:05: BD Raul Posiflush) Saline No Notes: Memoria Flush 0.9% 2-21 (Same as: l 12:05: BD Raul Posiflush) Saline No Notes: Memoria Flush 0.9% 2-21 (Same as: l 12:05: BD Raul Posiflush) albuterol 2021-10 No 5mg 5 mg, Univer [...] nn 00 90 tab, 2 Refill(s), Pharmacy: [facility] #[id number], 149.86, cm, 11/02/21 14:32:00 PALLIATIVE CARE PHYSICIAN, Height, 90.455, kg, 11/02/21 14:32:00 PALLIATIVE CARE PHYSICIAN, Weight primidone 0 Yes 50 mg = 1 Mem oria 50 mg oral 2-02 tab, PO, l tablet 20:46: Bedtime, # Ejssie nn 00 90 tab, 2 Refill(s), Pharmacy: [facility] #[id number], 149.86, cm, 11/02/21 14:32:00 PALLIATIVE CARE PHYSICIAN, Height, 90.455, kg, 11/02/21 14:32:00 PALLIATIVE CARE PHYSICIAN, Weight primidone 2021-0 Yes 50 mg = 1 Mem oria 50 mg oral 2-02 tab, PO, l tablet 20:46: Bedtime, # Jessie nn 00 90 tab, 2 Refill(s), Pharmacy: [facility] #[id number], 149.86, cm, 11/02/21 14:32:00 PALLIATIVE CARE PHYSICIAN, Height, 90.455, kg, 11/02/21 14:32:00 PALLIATIVE CARE PHYSICIAN, Weight primidone 2022-0 Yes 50 mg = 1 Mem oria 50 mg oral 2-02 tab, PO, l tablet 20:46: Bedtime, # Jessie nn 00 90 tab, 2 Refill(s), Pharmacy: [facility] #[id number], 149.86, cm, 11/02/21 14:32:00 PALLIATIVE CARE PHYSICIAN, Height, 90.455, kg, 11/02/21 14:32:00 PALLIATIVE CARE PHYSICIAN, Weight primidone 2022-0 Yes 50 mg = 1 Mem oria 50 mg oral 2-02 tab, PO, l tablet 20:46: Bedtime, # Jessie nn 00 90 tab, 2 Refill(s), Pharmacy: [facility] #[id number], 149.86, cm, 11/02/21 14:32:00 PALLIATIVE CARE PHYSICIAN, Height, 90.455, kg, 11/02/21 14:32:00 PALLIATIVE CARE PHYSICIAN, Weight primidone 2022-0 Yes 50 mg = 1 Mem oria 50 mg oral 2-02 tab, PO, l tablet 20:46: Bedtime, # Jessie nn 00 90 tab, 2 Refill(s), Pharmacy: [facility] #[id number], 149.86, cm, 11/02/21 14:32:00 PALLIATIVE CARE PHYSICIAN, Height, 90.455, kg, 11/02/21 14:32:00 PALLIATIVE CARE PHYSICIAN, Weight primidone 2022-0 Yes 50 mg = 1 Mem oria 50 mg oral 2-02 tab, PO, l tablet 20:46: Bedtime, # Jessie nn 00 90 tab, 2 Refill(s), Pharmacy: [facility] #[id number], 149.86, cm, 11/02/21 14:32:00 PALLIATIVE CARE PHYSICIAN, Height, 90.455, kg, 11/02/21 14:32:00 PALLIATIVE CARE PHYSICIAN, Weight primidone 2022-0 Yes 50 mg = 1 Mem oria 50 mg oral 2-02 tab, PO, l tablet 20:46: Bedtime, # Jessie nn 00 90 tab, 2 Refill(s), Pharmacy: [facility] #[id number], 149.86, cm, 11/02/21 14:32:00 PALLIATIVE CARE PHYSICIAN, Height, 90.455, kg, 11/02/21 14:32:00 PALLIATIVE CARE PHYSICIAN, Weight primidone Yes 50 mg = 1 Mem oria 50 mg oral 2-02 tab, PO, l tablet 20:46: Bedtime, # Jessie nn 00 90 tab, 2 Refill(s), Pharmacy: [facility] #[id number], 149.86, cm, 11/02/21 14:32:00 PALLIATIVE CARE PHYSICIAN, Height, 90.455, kg, 11/02/21 14:32:00 PALLIATIVE CARE PHYSICIAN, Weight primidone Yes 50 mg = 1 Mem oria 50 mg oral 2-02 tab, PO, l tablet 20:46: Bedtime, # Jessie nn 00 90 tab, 2 Refill(s), Pharmacy: [facility] #[id number], 149.86, cm, 11/02/21 14:32:00 PALLIATIVE CARE PHYSICIAN, Height, 90.455, kg, 11/02/21 14:32:00 PALLIATIVE CARE PHYSICIAN, Weight NIFEdipine Yes TAKE 1 Memor ia [...] CAPSULE BY l MG Oral 20:38: MOUTH [place] Capsule 00 TWICE A DAY Colestipol Yes [...] 2-02 TABLET BY l tablet 20:38: MOUTH [place] 00 THREE TIMES A DAY NIFEdipine Yes [...] BY l de 50 MG 20:38: MOUTH [place] Oral Tablet 00 EVERY 6 TO 8 HOURS NEEDED predniSONE Yes TAKE 1 Memor ia 10 mg oral 2-02 TABLET BY l tablet 20:38: MOUTH [place] 00 EVERY DAY FOR 90 DAYS doxycycline [...] TABLET BY l oral 20:38: MOUTH 2 [place] enteric 00 TIMES coated DAILY HALF tablet HOUR BEFORE BREAKFAST OR FIRST MEAL oxybutynin Yes TAKE 1 Memor ia 5 mg oral 2-02 TABLET BY l tablet 20:38: MOUTH Raul 00 THREE TIMES A DAY NIFEdipine Yes TAKE 1 Memor ia (Eqv-Adalat 2-02 TABLET BY l CC) 30 mg 20:38: MOUTH [place] oral 00 EVERY DAY tablet, ON EMPTY extended STOMACH release FOR 30 DAYS Furosemide Yes TAKE 1 Memor ia 40 MG Oral 2-02 TABLET BY l Tablet 20:38: MOUTH Raul 00 EVERY DAY NEEDED FOR SWELLING tramadol Yes TAKE 1 Memoria hydrochlori 2-02 TABLET BY l de 50 MG 20:38: MOUTH [place] Oral Tablet 00 EVERY 6 TO 8 HOURS NEEDED predniSONE Yes TAKE 1 Memor ia 10 mg oral 2-02 TABLET BY l tablet 20:38: MOUTH Raul 00 EVERY DAY FOR 90 DAYS doxycycline Yes TAKE 1 Jose Francisco zhang hyclate 100 2-02 CAPSULE BY l MG Oral 20:38: MOUTH [place] Capsule 00 TWICE A DAY Colestipol Yes TAKE 1 Memor ia Hydrochlori 2-02 TABLET BY l de 1000 MG 20:38: MOUTH Ajay n Oral Tablet 00 TWICE A DAY pantoprazol Yes TAKE 1 Jose Francisco zhang e 40 mg 2-02 TABLET BY l oral 20:38: MOUTH 2 [place] enteric 00 TIMES coated DAILY HALF tablet HOUR BEFORE BREAKFAST OR FIRST MEAL oxybutynin Yes TAKE 1 Memor ia 5 mg oral 2-02 TABLET BY l tablet 20:38: MOUTH [place] 00 THREE TIMES A DAY NIFEdipine Yes [...] 2-02 TABLET BY l tablet 20:38: MOUTH [place] 00 EVERY DAY FOR 90 DAYS doxycycline [...] 2-02 TABLET BY l tablet 20:38: MOUTH [place] 00 THREE TIMES A DAY NIFEdipine Yes TAKE 1 Memor ia (Eqv-Adalat 2-02 TABLET BY l CC) 30 mg 20:38: MOUTH [place] oral 00 EVERY DAY tablet, ON EMPTY [...] CAPSULE BY l MG Oral 20:38: MOUTH [place] Capsule 00 TWICE A DAY Colestipol Yes [...] 2-02 TABLET BY l tablet 20:38: MOUTH [place] 00 THREE TIMES A DAY NIFEdipine Yes TAKE 1 Memor ia (Eqv-Adalat 2-02 TABLET BY l CC) 30 mg 20:38: MOUTH Raul oral 00 EVERY DAY tablet, ON EMPTY extended STOMACH release FOR 30 DAYS Furosemide Yes TAKE 1 Memor ia 40 MG Oral 2-02 TABLET BY l Tablet 20:38: MOUTH [place] 00 EVERY DAY NEEDED FOR SWELLING tramadol [...] BY l CC) 30 mg 20:38: MOUTH [place] oral 00 EVERY DAY tablet, ON EMPTY [...] CAPSULE BY l MG Oral 20:38: MOUTH [place] Capsule 00 TWICE A DAY Colestipol Yes [...] 2-02 TABLET BY l tablet 20:38: MOUTH [place] 00 THREE TIMES A DAY NIFEdipine Yes [...] BY l de 50 MG 20:38: MOUTH [place] Oral Tablet 00 EVERY 6 TO 8 HOURS NEEDED predniSONE Yes TAKE 1 Memor ia 10 mg oral 2-02 TABLET BY l tablet 20:38: MOUTH [place] 00 EVERY DAY FOR 90 DAYS doxycycline [...] TABLET BY l oral 20:38: MOUTH 2 [place] enteric 00 TIMES coated DAILY HALF tablet HOUR BEFORE BREAKFAST OR FIRST MEAL oxybutynin Yes TAKE 1 Memor ia 5 mg oral 2-02 TABLET BY l tablet 20:38: MOUTH [place] 00 THREE TIMES A DAY NIFEdipine Yes [...] 2-02 TABLET BY l tablet 20:38: MOUTH [place] 00 EVERY DAY FOR 90 DAYS doxycycline Yes TAKE 1 Jose Francisco zhang hyclate 100 2-02 CAPSULE BY l MG Oral 20:38: MOUTH [place] Capsule 00 TWICE A DAY Colestipol Yes [...] BY l CC) 30 mg 20:38: MOUTH [place] oral 00 EVERY DAY tablet, ON EMPTY extended STOMACH release FOR 30 DAYS Furosemide Yes TAKE 1 Memor ia 40 MG Oral 2-02 TABLET BY l Tablet 20:38: MOUTH [place] 00 EVERY DAY NEEDED FOR SWELLING tramadol [...] TABLET BY l oral 20:38: MOUTH 2 [place] enteric 00 TIMES coated DAILY HALF tablet HOUR BEFORE BREAKFAST OR FIRST MEAL oxybutynin Yes TAKE 1 Memor ia 5 mg oral 2-02 TABLET BY l tablet 20:38: MOUTH [place] 00 THREE TIMES A DAY donepezil Yes = 1 tab, Jose Francisco zhang 10 mg oral 3-26 PO, Daily, l tablet 19:08: # 90 tab, Ajay n 00 1 Refill(s), Pharmacy: [facility] #[id number], 149.86, cm, 12/24/20 13:59:00 CDT, Height, 93.182, kg, 12/24/20 13:59:00 CDT, Weight primidone Yes 50 mg = 1 Mem oria 50 mg oral 3-26 tab, PO, l tablet 19:08: Bedtime, # Jessie nn 00 90 tab, 2 Refill(s), Pharmacy: [facility] #[id number], 149.86, cm, 12/24/20 13:59:00 CDT, Height, 93.182, kg, 12/24/20 13:59:00 CDT, Weight donepezil 2020-0 Yes = 1 tab, Jose Francisco zhang 10 mg oral 3-26 PO, Daily, l tablet 19:08: # 90 tab, Ajay n 00 1 Refill(s), Pharmacy: [facility] #[id number], 149.86, cm, 12/24/20 13:59:00 CDT, Height, 93.182, kg, 12/24/20 13:59:00 CDT, Weight primidone 2020-0 Yes 50 mg = 1 Mem oria 50 mg oral 3-26 tab, PO, l tablet 19:08: Bedtime, # Jessie nn 00 90 tab, 2 Refill(s), Pharmacy: [facility] #[id number], 149.86, cm, 12/24/20 13:59:00 CDT, Height, 93.182, kg, 12/24/20 13:59:00 CDT, Weight donepezil 2020-0 Yes = 1 tab, Jose Francisco zhang 10 mg oral 3-26 PO, Daily, l tablet 19:08: # 90 tab, Ajay n 00 1 Refill(s), Pharmacy: [facility] #[id number], 149.86, cm, 12/24/20 13:59:00 CDT, Height, 93.182, kg, 12/24/20 13:59:00 CDT, Weight primidone 2020-0 Yes 50 mg = 1 Mem oria 50 mg oral 3-26 tab, PO, l tablet 19:08: Bedtime, # Jessie nn 00 90 tab, 2 Refill(s), Pharmacy: [id number], 149.86, cm, 12/24/20 13:59:00 CDT, Height, 93.182, kg, 12/24/20 13:59:00 CDT, Weight donepezil 2020-0 Yes = 1 tab, Jose Francisco zhang 10 mg oral 3-26 PO, Daily, l tablet 19:08: # 90 tab, Ajay n 00 1 Refill(s), Pharmacy: [facility] #[id number], 149.86, cm, 12/24/20 13:59:00 CDT, Height, 93.182, kg, 12/24/20 13:59:00 CDT, Weight primidone 2021-0 Yes 50 mg = 1 Mem oria 50 mg oral 3-26 tab, PO, l tablet 19:08: Bedtime, # Jessie nn 00 90 tab, 2 Refill(s), Pharmacy: [facility] #[id number], 149.86, cm, 12/24/20 13:59:00 CDT, Height, 93.182, kg, 12/24/20 13:59:00 CDT, Weight donepezil 1-0 Yes = 1 tab, Jose Francisco zhang 10 mg oral 3-26 PO, Daily, l tablet 19:08: # 90 tab, Ajay n 00 1 Refill(s), Pharmacy: [facility] #[id number], 149.86, cm, 12/24/20 13:59:00 CDT, Height, 93.182, kg, 12/24/20 13:59:00 CDT, Weight primidone 1-0 Yes 50 mg = 1 Mem oria 50 mg oral 3-26 tab, PO, l tablet 19:08: Bedtime, # Jessie nn 00 90 tab, 2 Refill(s), Pharmacy: [facility] #[id number], 149.86, cm, 12/24/20 13:59:00 CDT, Height, 93.182, kg, 12/24/20 13:59:00 CDT, Weight donepezil 1-0 Yes = 1 tab, Jose Francisco zhang 10 mg oral 3-26 PO, Daily, l tablet 19:08: # 90 tab, Ajay n 00 1 Refill(s), Pharmacy: [facility] #[id number], 149.86, cm, 12/24/20 13:59:00 CDT, Height, 93.182, kg, 12/24/20 13:59:00 CDT, Weight primidone 2021-0 Yes 50 mg = 1 Mem oria 50 mg oral 3-26 tab, PO, l tablet 19:08: Bedtime, # Jessie nn 00 90 tab, 2 Refill(s), Pharmacy: [facility] #[id number], 149.86, cm, 12/24/20 13:59:00 CDT, Height, 93.182, kg, 12/24/20 13:59:00 CDT, Weight donepezil 2020-0 Yes = 1 tab, Jose Francisco zhang 10 mg oral 3-26 PO, Daily, l tablet 19:08: # 90 tab, Ajay n 00 1 Refill(s), Pharmacy: [facility] #[id number], 149.86, cm, 12/24/20 13:59:00 CDT, Height, 93.182, kg, 12/24/20 13:59:00 CDT, Weight primidone 1-0 Yes 50 mg = 1 Mem oria 50 mg oral 3-26 tab, PO, l tablet 19:08: Bedtime, # Jessie nn 00 90 tab, 2 Refill(s), Pharmacy: [facility] #[id number], 149.86, cm, 12/24/20 13:59:00 CDT, Height, 93.182, kg, 12/24/20 13:59:00 CDT, Weight donepezil 2020-0 Yes = 1 tab, Jose Francisco zhang 10 mg oral 3-26 PO, Daily, l tablet 19:08: # 90 tab, Ajay n 00 1 Refill(s), Pharmacy: [facility] #[id number], 149.86, cm, 12/24/20 13:59:00 CDT, Height, 93.182, kg, 12/24/20 13:59:00 CDT, Weight primidone 1-0 Yes 50 mg = 1 Mem oria 50 mg oral 3-26 tab, PO, l tablet 19:08: Bedtime, # Jessie nn 00 90 tab, 2 Refill(s), Pharmacy: [facility] #[id number], 149.86, cm, 12/24/20 13:59:00 CDT, Height, 93.182, kg, 12/24/20 13:59:00 CDT, Weight donepezil 2020-0 Yes = 1 tab, Jose Francisco zhang 10 mg oral 3-26 PO, Daily, l tablet 19:08: # 90 tab, Ajay n 00 1 Refill(s), Pharmacy: [facility] #[id number], 149.86, cm, 12/24/20 13:59:00 CDT, Height, 93.182, kg, 12/24/20 13:59:00 CDT, Weight primidone 2020-0 Yes 50 mg = 1 Mem oria 50 mg oral 3-26 tab, PO, l tablet 19:08: Bedtime, # Jessie nn 00 90 tab, 2 Refill(s), Pharmacy: [facility] #[id number], 149.86, cm, 12/24/20 13:59:00 CDT, Height, 93.182, kg, 12/24/20 13:59:00 CDT, Weight donepezil 2020-0 Yes = 1 tab, Jose Francisco zhang 10 mg oral 3-26 PO, Daily, l tablet 19:08: # 90 tab, Ajay n 00 1 Refill(s), Pharmacy: [facility] #[id number], 149.86, cm, 12/24/20 13:59:00 CDT, Height, 93.182, kg, 12/24/20 13:59:00 CDT, Weight primidone 2020-0 Yes 50 mg = 1 Mem oria 50 mg oral 3-26 tab, PO, l tablet 19:08: Bedtime, # Jessie nn 00 90 tab, 2 Refill(s), Pharmacy: [facility] #[id number], 149.86, cm, 12/24/20 13:59:00 CDT, Height, 93.182, kg, 12/24/20 13:59:00 CDT, Weight Lidocaine Lidocaine 2020-0 No 10mg Com 12-09 [facility]: - [facility] Celestone Celestone 2020-0 No 6mg Com mon Soluspan Soluspan 3-11 [facility] (Betamethas (Betamethas 00:00: - [facility] one) one) 00 [facility] Lidocaine Lidocaine 2020-0 No 10mg Com sun 3 [facility] 00:[facility]: - [facility] 00 [facility] Celestone Celestone 2020-0 No 6mg Com mon Soluspan Soluspan 3-11 [facility] (Betamethas (Betamethas 00:00: - [facility] one) one) 00 [facility] Lidocaine Lidocaine 2020-0 No 10mg Com 12-09 [facility] 00:[facility]: - [facility] 00 [facility] Celestone Celestone 2020-0 No 6mg Com mon Soluspan Soluspan 3-11 [facility] (Betamethas (Betamethas 00:00: - [facility] one) one) 00 [facility] Lidocaine Lidocaine 1-0 No 10mg Com mon 3- [facility] 00[facility]: - [facility] 00 [facility] Celestone Celestone 2020-0 No 6mg Com mon Soluspan Soluspan 3-11 [facility] (Betamethas (Betamethas 00:00: - [facility] one) one) 00 [facility] Lidocaine Lidocaine 2020-0 No 10mg Com mon 3 [facility] 00:[facility]: - [facility] 00 [facility] Celestone Celestone 2020-0 No 6mg Com mon Soluspan Soluspan 3-11 [facility] (Betamethas (Betamethas 00:00: - [facility] one) one) 00 [facility] Lidocaine Lidocaine 1-0 No 10mg Com 12-09 [facility] 00:[facility]: - [facility] 00 [facility] Celestone Celestone 2020-0 No 6mg Com mon Soluspan Soluspan 3-11 [facility] (Betamethas (Betamethas 00:00: - [facility] one) one) 00 [facility] Lidocaine Lidocaine 1-0 No 10mg Com 12-09 [facility] 00:[facility]: - [facility] 00 [facility] Celestone Celestone 2020-0 No 6mg Com mon Soluspan Soluspan 3-11 [facility] (Betamethas (Betamethas 00:00: - [facility] one) one) 00 [facility] Lidocaine Lidocaine 2020-0 No 10mg Com sun 3 [facility] 00:[facility]: - [facility] 00 [facility] Celestone Celestone 2020-0 No 6mg Com mon Soluspan Soluspan 3-11 [facility] (Betamethas (Betamethas 00:00: - [facility] one) one) 00 [facility] Lovastatin 2020-1 No 20 mg, 1 Mem oria 2-07 tab, l 03:00: Route: PO, Raul 00 Drug form: TAB, Bedtime, Dosing Weight 104.545, kg, Start date: 09/05/20 21:00:00 PALLIATIVE CARE PHYSICIAN, 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, Stop date: 10/04/20 21:00:00 PALLIATIVE CARE PHYSICIAN Primidone 2019-10 No Notes: Memori a 2-07 (Same as: l 03:00: Mysoline) Lipitor 2019-10 No Notes: Memoria 2-07 (Same As: l 03:00: Lipitor) Lovastatin 2019-10 No 20 mg, 1 Mem oria 2-07 tab, l 03:00: Route: PO, [place] 00 Drug form: TAB, Bedtime, Dosing Weight 104.545, kg, Start date: 09/05/20 21:00:00 PALLIATIVE CARE PHYSICIAN, 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, Stop date: 10/04/20 21:00:00 PALLIATIVE CARE PHYSICIAN Primidone 2019-10 No Notes: Memori a 2-07 (Same as: l 03:00: Mysoline) Lipitor 2019-10 No Notes: Memoria 2-07 (Same As: l 03:00: Lipitor) Lovastatin 2019-10 No 20 mg, 1 Mem oria 2-07 tab, l 03:00: Route: PO, [place] 00 Drug form: TAB, Bedtime, Dosing Weight 104.545, kg, Start date: 09/05/20 21:00:00 PALLIATIVE CARE PHYSICIAN, 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, Stop date: 10/04/20 21:00:00 PALLIATIVE CARE PHYSICIAN Primidone 2019-10 No Notes: Memori a 2-07 (Same as: l 03:00: Mysoline) Lipitor 2019-10 No Notes: Memoria 2-07 (Same As: l 03:00: Lipitor) Lovastatin 2019-10 No 20 mg, 1 Mem oria 2-07 tab, l 03:00: Route: PO, Raul 00 Drug form: TAB, Bedtime, Dosing Weight 104.545, kg, Start date: 09/05/20 21:00:00 PALLIATIVE CARE PHYSICIAN, 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, Stop date: 10/04/20 21:00:00 PALLIATIVE CARE PHYSICIAN Primidone 2019-10 No Notes: Memori a 2-07 (Same as: l 03:00: Mysoline) Lipitor 2019-10 No Notes: Memoria 2-07 (Same As: l 03:00: Lipitor) Lovastatin 2019-10 No 20 mg, 1 Mem oria 2-07 tab, l 03:00: Route: PO, [place] 00 Drug form: TAB, Bedtime, Dosing Weight 104.545, kg, Start date: 09/05/20 21:00:00 PALLIATIVE CARE PHYSICIAN, 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, Stop date: 10/04/20 21:00:00 PALLIATIVE CARE PHYSICIAN Primidone 2019-10 No Notes: Memori a 2-07 (Same as: l 03:00: Mysoline) Lipitor 2019-10 No Notes: Memoria 2-07 (Same As: l 03:00: Lipitor) Lovastatin 2019-10 No 20 mg, 1 Mem oria 2-07 tab, l 03:00: Route: PO, Raul 00 Drug form: TAB, Bedtime, Dosing Weight 104.545, kg, Start date: 09/05/20 21:00:00 PALLIATIVE CARE PHYSICIAN, 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, Stop date: 10/04/20 21:00:00 PALLIATIVE CARE PHYSICIAN Primidone 2019-10 No Notes: Memori a 2-07 (Same as: l 03:00: Mysoline) Lovastatin 2019-10 No 20 mg, 1 Mem oria 2-07 tab, l 03:00: Route: PO, [place] 00 Drug form: TAB, Bedtime, Dosing Weight 104.545, kg, Start date: 09/05/20 21:00:00 PALLIATIVE CARE PHYSICIAN, 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, Stop date: 10/04/20 21:00:00 PALLIATIVE CARE PHYSICIAN Primidone 2019-10 No Notes: Memori a 2-07 (Same as: l 03:00: Mysoline) Lipitor 2019-10 No Notes: Memoria 2-07 (Same As: l 03:00: Lipitor) Lipitor 2019-10 No Notes: Memoria 2-07 (Same As: l 03:00: Lipitor) Lovastatin 2019-10 No 20 mg, 1 Mem oria 2-07 tab, l 03:00: Route: PO, [place] 00 Drug form: TAB, Bedtime, Dosing Weight 104.545, kg, Start date: 09/05/20 21:00:00 PALLIATIVE CARE PHYSICIAN, 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, Stop date: 10/04/20 21:00:00 PALLIATIVE CARE PHYSICIAN Primidone 2019-10 No Notes: Memori a 2-07 (Same as: l 03:00: Mysoline) Lipitor 2019-10 No Notes: Memoria 2-07 (Same As: l 03:00: Lipitor) Lovastatin 2019-10 No 20 mg, 1 Mem oria 2-07 tab, l 03:00: Route: PO, [place] 00 Drug form: TAB, Bedtime, Dosing Weight 104.545, kg, Start date: 09/05/20 21:00:00 PALLIATIVE CARE PHYSICIAN, 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, Stop date: 10/04/20 21:00:00 PALLIATIVE CARE PHYSICIAN Primidone 2019-10 No Notes: Memori a 2-07 (Same as: l 03:00: Mysoline) Lipitor 2019-10 No Notes: Memoria 2-07 (Same As: l 03:00: Lipitor) Lovastatin 2019-10 No 20 mg, 1 Mem oria 2-07 tab, l 03:00: Route: PO, [place] 00 Drug form: TAB, Bedtime, Dosing Weight 104.545, kg, Start date: 09/05/20 21:00:00 PALLIATIVE CARE PHYSICIAN, 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, Stop date: 10/04/20 21:00:00 PALLIATIVE CARE PHYSICIAN Primidone 2019-10 No Notes: Memori a 2-07 [...] ia 2-06 Give with l 15:00: food. [place] 00 (Same As: Coreg) donepezil 2019-10 No [...] 104.545, kg, Daily, Start date: 09/05/20 9:00:00 PALLIATIVE CARE PHYSICIAN, 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, Stop date: 10/04/20 9:00:00 PALLIATIVE CARE PHYSICIAN gabapentin 2019-10 No Notes: Memor ia 300 [...] 104.545, kg, Daily, Start date: 09/05/20 9:00:00 PALLIATIVE CARE PHYSICIAN, 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, Stop date: 10/04/20 9:00:00 PALLIATIVE CARE PHYSICIAN gabapentin 2019-10 No Notes: Memor ia 300 MG Oral 2-06 (Same as: l Capsule 15:00: Neurontin) ropinirole 2019-10 No Notes: Memor ia 2-06 (Same as: l 15:00: Requip) Bupropion 2019-10 No Notes: Memori a 2-06 (Same as: l 15:00: Wellbutrin Raul 00 XL) "Do Not Crush" carvedilol 2019-10 No Notes: Memor ia 2-06 Give with l 15:00: food. [place] 00 (Same As: Coreg) donepezil 2019-10 No [...] 104.545, kg, Daily, Start date: 09/05/20 9:00:00 PALLIATIVE CARE PHYSICIAN, 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, Stop date: 10/04/20 9:00:00 PALLIATIVE CARE PHYSICIAN gabapentin 2019-10 No Notes: Memor ia 300 [...] 104.545, kg, Daily, Start date: 09/05/20 9:00:00 PALLIATIVE CARE PHYSICIAN, 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, Stop date: 10/04/20 9:00:00 PALLIATIVE CARE PHYSICIAN gabapentin 2019-10 No Notes: Memor ia 300 [...] 104.545, kg, Daily, Start date: 09/05/20 9:00:00 PALLIATIVE CARE PHYSICIAN, 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, Stop date: 10/04/20 9:00:00 PALLIATIVE CARE PHYSICIAN gabapentin 2019-10 No Notes: Memor ia 300 [...] 104.545, kg, Daily, Start date: 09/05/20 9:00:00 PALLIATIVE CARE PHYSICIAN, 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, Stop date: 10/04/20 9:00:00 PALLIATIVE CARE PHYSICIAN gabapentin 2019-10 No Notes: Memor ia 300 MG Oral 2-06 (Same as: l Capsule 15:00: Neurontin) ropinirole 2019-10 No Notes: Memor ia 2-06 (Same as: l 15:00: Requip) Bupropion 2019-10 No Notes: Memori a 2-06 (Same as: l 15:00: Wellbutrin [place] 00 XL) "Do Not Crush" carvedilol 2019-10 [...] 104.545, kg, Daily, Start date: 09/05/20 9:00:00 PALLIATIVE CARE PHYSICIAN, 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, Stop date: 10/04/20 9:00:00 PALLIATIVE CARE PHYSICIAN gabapentin 2019-10 No Notes: Memor ia 300 [...] 104.545, kg, Daily, Start date: 09/05/20 9:00:00 PALLIATIVE CARE PHYSICIAN, 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, Stop date: 10/04/20 9:00:00 PALLIATIVE CARE PHYSICIAN gabapentin 2019-10 No Notes: Memor ia 300 MG Oral 2-06 (Same as: l Capsule 15:00: Neurontin) ropinirole 2019-10 No Notes: Memor ia 2-06 (Same as: l 15:00: Requip) Bupropion 2019-10 No Notes: Memori a 2-06 (Same as: l 15:00: Wellbutrin [place] 00 XL) "Do Not Crush" carvedilol 2019-10 [...] 104.545, kg, Daily, Start date: 09/05/20 9:00:00 PALLIATIVE CARE PHYSICIAN, 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, Stop date: 10/04/20 9:00:00 PALLIATIVE CARE PHYSICIAN gabapentin 2019-10 No Notes: Memor ia 300 [...] 104.545, kg, Daily, Start date: 09/05/20 9:00:00 PALLIATIVE CARE PHYSICIAN, 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, Stop date: 10/04/20 9:00:00 PALLIATIVE CARE PHYSICIAN gabapentin 2019- No Notes: Memor ia 300 MG Oral 2-06 (Same as: l Capsule 15:00: Neurontin) Herm bernie ropinirole 2019-10 No Notes: Memor ia 2-06 (Same as: l 15:00: Requip) [place] 00 Streptococc 2019- No Notes: Jose Francisco zhang us 2-06 Shake well l pneumoniae 14:12: prior to Her ivory serotype 1 45 use (Same capsular as: antigen Prevnar diphtheria 13) [id number] protein conjugate vaccine / Streptococc us pneumoniae serotype 14 capsular antigen diphtheria [id number] protein conjugate vaccine / Streptococc us pneumoniae serotype 18C capsular antigen d Streptococc 2019-10 No Notes: Jose Francisco zhang us 2-06 Shake well l pneumoniae 14:12: prior to Her ivory serotype 1 45 use (Same capsular as: antigen Prevnar diphtheria 13) [id number] protein conjugate vaccine / Streptococc us pneumoniae serotype 14 capsular antigen diphtheria [id number] protein conjugate vaccine / Streptococc us pneumoniae serotype 18C capsular antigen d Streptococc 2019- No Notes: Jose Francisco zhang us 2-06 Shake well l pneumoniae 14:12: prior to Her ivory serotype 1 45 use (Same capsular as: antigen Prevnar diphtheria 13) [id number] protein conjugate vaccine / Streptococc us pneumoniae serotype 14 capsular antigen diphtheria [id number] protein conjugate vaccine / Streptococc us pneumoniae serotype 18C capsular antigen d Streptococc 2020- No Notes: Jose Francisco zhang us 2-06 Shake well l pneumoniae 14:12: prior to Her ivory serotype 1 45 use (Same capsular as: antigen Prevnar diphtheria 13) [id number] protein conjugate vaccine / Streptococc us pneumoniae serotype 14 capsular antigen diphtheria [id number] protein conjugate vaccine / Streptococc us pneumoniae serotype 18C capsular antigen d Streptococc 2020- No Notes: Jose Francisco zhang us 2-06 Shake well l pneumoniae 14:12: prior to Her ivory serotype 1 45 use (Same capsular as: antigen Prevnar diphtheria 13) [id number] protein conjugate vaccine / Streptococc us pneumoniae serotype 14 capsular antigen diphtheria [id number] protein conjugate vaccine / Streptococc us pneumoniae serotype 18C capsular antigen d Streptococc 2020- No Notes: Jose Francisco zhang us 2-06 Shake well l pneumoniae 14:12: prior to Her ivory serotype 1 45 use (Same capsular as: antigen Prevnar diphtheria 13) [id number] protein conjugate vaccine / Streptococc us pneumoniae serotype 14 capsular antigen diphtheria [id number] protein conjugate vaccine / Streptococc us pneumoniae serotype 18C capsular antigen d Streptococc 2020- No Notes: Jose Francisco zhang us 2-06 Shake well l pneumoniae 14:12: prior to Her ivory serotype 1 45 use (Same capsular as: antigen Prevnar diphtheria 13) [id number] protein conjugate vaccine / Streptococc us pneumoniae serotype 14 capsular antigen diphtheria [id number] protein conjugate vaccine / Streptococc us pneumoniae serotype 18C capsular antigen d Streptococc 2020- No Notes: Jose Francisco zhang us 2-06 Shake well l pneumoniae 14:12: prior to Her ivory serotype 1 45 use (Same capsular as: antigen Prevnar diphtheria 13) [id number] protein conjugate vaccine / Streptococc us pneumoniae serotype 14 capsular antigen diphtheria [id number] protein conjugate vaccine / Streptococc us pneumoniae serotype 18C capsular antigen d Streptococc 2020- No Notes: Jose Francisco zhang us 2-06 Shake well l pneumoniae 14:12: prior to Her ivory serotype 1 45 use (Same capsular as: antigen Prevnar diphtheria 13) [id number] protein conjugate vaccine / Streptococc us pneumoniae serotype 14 capsular antigen diphtheria [id number] protein conjugate vaccine / Streptococc us pneumoniae serotype 18C capsular antigen d Streptococc 2020- No Notes: Jose Francisco zhang us 2-06 Shake well l pneumoniae 14:12: prior to Her ivory serotype 1 45 use (Same capsular as: antigen Prevnar diphtheria 13) [id number] protein conjugate vaccine / Streptococc us pneumoniae serotype 14 capsular antigen diphtheria [id number] protein conjugate vaccine / Streptococc us pneumoniae serotype 18C capsular antigen d Thyroxine 2019-10 No Notes: Memori a 2-06 Take 1 l 14:00: hour [place] 00 before or 2 hours after meal; Enteral feeds may interefere with the absorption of this medication . (Same as:Levothr oid) Thyroxine 2019-10 No Notes: Memori a 2-06 Take 1 l 14:00: hour [place] 00 before or 2 hours after meal; [...] a 2-06 Take 1 l 14:00: hour [place] 00 before or 2 hours after meal; Enteral feeds may interefere with the absorption of this medication . (Same as:Levothr oid) Thyroxine 2019-10 No Notes: Memori a 2-06 Take 1 l 14:00: hour [place] 00 before or 2 hours after meal; Enteral feeds may interefere with the absorption of this medication . (Same as:Levothr oid) Thyroxine 2019-10 No Notes: Memori a 2-06 Take 1 l 14:00: hour [place] 00 before or 2 hours after meal; Enteral feeds may interefere with the absorption of this medication . (Same as:Levothr oid) Thyroxine 2019-10 No Notes: Memori a 2-06 Take 1 l 14:00: hour [place] 00 before or 2 hours after meal; [...] a 2-06 Take 1 l 14:00: hour [place] 00 before or 2 hours after meal; [...] Memoria 2-06 Route: l 12:39: IVP, Drug Form: SOLN, Dosing Weight 104.545, kg, ONCALL, STAT, Start date: 09/05/20 6:39:00 PALLIATIVE CARE PHYSICIAN, Duration: 1 doses or times, Dose = 2.2ml/kg, Max dose = 100ml -- "To be infused by Radiology Staff ONLY" Iohexol 2020-1 No 100 mL, Memoria 2-06 Route: l 12:39: IVP, Drug [place] 00 Form: SOLN, Dosing Weight 104.545, kg, ONCALL, STAT, Start date: 09/05/20 6:39:00 PALLIATIVE CARE PHYSICIAN, Duration: 1 doses or times, Dose = 2.2ml/kg, Max dose = 100ml -- "To be infused by Radiology Staff ONLY" Iohexol 2020-1 No 100 mL, Memoria 2-06 Route: l 12:39: IVP, Drug Raul 00 Form: SOLN, Dosing Weight 104.545, kg, ONCALL, STAT, Start date: 09/05/20 6:39:00 PALLIATIVE CARE PHYSICIAN, Duration: 1 doses or times, Dose = 2.2ml/kg, Max dose = 100ml -- "To be infused by Radiology Staff ONLY" Iohexol 2020-1 No 100 mL, Memoria 2- Route: l 12:39: IVP, Drug Raul 00 Form: SOLN, Dosing Weight 104.545, kg, ONCALL, STAT, Start date: 09/05/20 6:39:00 PALLIATIVE CARE PHYSICIAN, Duration: 1 doses or times, Dose = 2.2ml/kg, Max dose = 100ml -- "To be infused by Radiology Staff ONLY" Iohexol 2020-1 No 100 mL, Memoria 2- Route: l 12:39: IVP, Drug Raul 00 Form: SOLN, Dosing Weight 104.545, kg, ONCALL, STAT, Start date: 09/05/20 6:39:00 PALLIATIVE CARE PHYSICIAN, Duration: 1 doses or times, Dose = 2.2ml/kg, Max dose = 100ml -- "To be infused by Radiology Staff ONLY" Iohexol 2020-1 No 100 mL, Memoria 2-06 Route: l 12:39: IVP, Drug [place] 00 Form: SOLN, Dosing Weight 104.545, kg, ONCALL, STAT, Start date: 09/05/20 6:39:00 PALLIATIVE CARE PHYSICIAN, Duration: 1 doses or times, Dose = 2.2ml/kg, Max dose = 100ml -- "To be infused by Radiology Staff ONLY" Iohexol 2020-1 No 100 mL, Memoria 2-06 Route: l 12:39: IVP, Drug [place] 00 Form: SOLN, Dosing Weight 104.545, kg, ONCALL, STAT, Start date: 09/05/20 6:39:00 PALLIATIVE CARE PHYSICIAN, Duration: 1 doses or times, Dose = 2.2ml/kg, Max dose = 100ml -- "To be infused by Radiology Staff ONLY" Iohexol 2019-10 No 100 mL, Memoria 2-06 Route: l 12:39: IVP, Drug [place] 00 Form: SOLN, Dosing Weight 104.545, kg, ONCALL, STAT, Start date: 09/05/20 6:39:00 PALLIATIVE CARE PHYSICIAN, Duration: 1 doses or times, Dose = 2.2ml/kg, Max dose = 100ml -- "To be infused by Radiology Staff ONLY" Iohexol 2019-10 No 100 mL, Memoria 2-06 Route: l 12:39: IVP, Drug [place] 00 Form: SOLN, Dosing Weight 104.545, kg, ONCALL, STAT, Start date: 09/05/20 6:39:00 PALLIATIVE CARE PHYSICIAN, Duration: 1 doses or times, Dose = 2.2ml/kg, Max dose = 100ml -- "To be infused by Radiology Staff ONLY" Iohexol 2019- No 100 mL, Memoria 2-06 Route: l 12:39: IVP, Drug [place] 00 Form: SOLN, Dosing Weight 104.545, kg, ONCALL, STAT, Start date: 09/05/20 6:39:00 PALLIATIVE CARE PHYSICIAN, Duration: 1 doses or times, Dose = 2.2ml/kg, Max dose = 100ml -- "To be infused by Radiology Staff ONLY" Acetaminoph 2019-10 No Notes: Max Memoria en 2-06 acetaminop l 07:00: hen 4000 Raul 00 mg/day (4 gm/day). (Same as: Tylenol Extra Strength) Acetaminoph 2019-10 No Notes: Max Memoria en 2-06 acetaminop l 07:00: hen 4000 [place] 00 mg/day (4 gm/day). (Same as: Tylenol [...] en 2-06 acetaminop l 07:00: hen 4000 [place] 00 mg/day (4 gm/day). (Same as: Tylenol [...] en 2-06 acetaminop l 07:00: hen 4000 [place] 00 mg/day (4 gm/day). (Same as: Tylenol Extra Strength) Acetaminoph 2019-10 No Notes: Max Memoria en 2-06 acetaminop l 07:00: hen 4000 [place] 00 mg/day (4 gm/day). (Same as: Tylenol [...] tab, PO, l tablet 06:48: Daily, # [place] 00 90 tab, 0 Refill(s) escitalopra 2019-10 [...] tab, PO, l Tablet 06:48: Daily, # [place] 00 60 tab, 1 Refill(s) Trelegy 2019-10 [...] l oral tablet 06:48: BID, # 180 [place] 00 tab, 1 Refill(s) amLODIPine 2019-10 Yes [...] tab, PO, l tablet 06:48: Daily, # [place] 00 90 tab, 0 Refill(s) escitalopra 2019-10 [...] tab, PO, l Tablet 06:48: Daily, # [place] 00 60 tab, 1 Refill(s) Trelegy 2019-10 [...] l oral tablet 06:48: BID, # 180 [place] 00 tab, 1 Refill(s) amLODIPine 2019-10 Yes 10 mg = 1 Me moria 10 mg oral 2-06 tab, PO, l tablet 06:48: Daily, # [place] 00 90 tab, 0 Refill(s) escitalopra 2019-10 [...] tab, PO, l Tablet 06:48: Daily, # [place] 00 60 tab, 1 Refill(s) Trelegy 2019-10 [...] tab, PO, l tablet 06:48: Daily, # [place] 00 90 tab, 0 Refill(s) escitalopra 2019-10 [...] l oral tablet 06:48: BID, # 180 [place] 00 tab, 1 Refill(s) amLODIPine 2019-10 Yes 10 mg = 1 Me moria 10 mg oral 2-06 tab, PO, l tablet 06:48: Daily, # [place] 00 90 tab, 0 Refill(s) escitalopra 2019-10 [...] tab, PO, l Tablet 06:48: Daily, # [place] 00 60 tab, 1 Refill(s) amLODIPine 2019-10 Yes 10 mg = 1 Me moria 10 mg oral 2-06 tab, PO, l tablet 06:48: Daily, # [place] 00 90 tab, 0 Refill(s) Trelegy 2019-10 [...] tab, PO, l Tablet 06:48: Daily, # [place] 00 60 tab, 1 Refill(s) Trelegy 2019-10 [...] l oral tablet 06:48: BID, # 180 [place] 00 tab, 1 Refill(s) amLODIPine 2019-10 Yes [...] Blood Glucose Results, Start date: 09/05/20 0:47:00 PALLIATIVE CARE PHYSICIAN, 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, Stop date: 10/05/20 0:46:00 PALLIATIVE CARE PHYSICIAN, 0 Glucagon 2019-10 No 1 mg, Memoria 11-06 Route: IM, l 06:47: Drug form: PDR/INJ, PRN, Dosing Weight 104.545, kg, PRN Blood Glucose Results, Start date: 09/05/20 0:47:00 PALLIATIVE CARE PHYSICIAN, 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, Stop date: 10/05/20 0:46:00 PALLIATIVE CARE PHYSICIAN, 0 sennosides, 2019-10 No Notes: Jose Francisco zhang SENIOR CARE 2-06 (Same as: l 06:47: Senokot) POLYETHYLEN 2019-10 No Notes: Jose Francisco zhang E GLYCOL -06 Dissolve l 3350 06:47: in 8 oz [...] Total Volume: 1,000, Start date: 09/05/20 0:47:00 PALLIATIVE CARE PHYSICIAN, Duration: 1 day, Stop date: 09/06/20 0:46:00 PALLIATIVE CARE PHYSICIAN, 1.97, m2, 0 Tums 2019-10 No Notes: [...] 0.65% 2- (Same as: l solution 06:47: Moca, [place] 00 Deep Sea Nasal [place]). Tessalon 2019-10 No Notes: Memoria Perles 2-06 (Same As: l 06:47: Tessalon Perles) "Do Not Crush" Guaifenesin 2019-10 No Notes: Jose Francisco zhang 2-06 (Same as: l 06:47: Organidin [place] 00 NR) Blistex 2019-10 No Notes: Memoria [...] Blood Glucose Results, Start date: 09/05/20 0:47:00 PALLIATIVE CARE PHYSICIAN, 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, Stop date: 10/05/20 0:46:00 PALLIATIVE CARE PHYSICIAN, 0 Glucagon 2019-10 No 1 mg, Memoria 2-06 Route: IM, l 06:47: Drug form: Raul 00 PDR/INJ, PRN, Dosing Weight 104.545, kg, PRN Blood Glucose Results, Start date: 09/05/20 0:47:00 PALLIATIVE CARE PHYSICIAN, 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, Stop date: 10/05/20 0:46:00 PALLIATIVE CARE PHYSICIAN, 0 sennosides, 2019-10 No Notes: Jose Francisco [...] Total Volume: 1,000, Start date: 09/05/20 0:47:00 PALLIATIVE CARE PHYSICIAN, Duration: 1 day, Stop date: 09/06/20 0:46:00 PALLIATIVE CARE PHYSICIAN, 1.97, m2, 0 Tums 2019-10 No Notes: [...] 0.65% 2-06 (Same as: l solution 06:47: Moca, [place] Deep Sea Nasal [place]). Tessalon 2019-10 No Notes: Memoria Perles - [...] Blood Glucose Results, Start date: 09/05/20 0:47:00 PALLIATIVE CARE PHYSICIAN, 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, Stop date: 10/05/20 0:46:00 PALLIATIVE CARE PHYSICIAN, 0 Glucagon 2019-10 No 1 mg, Memoria 11-06 Route: IM, l 06:47: Drug form: Raul 00 PDR/INJ, PRN, Dosing Weight 104.545, kg, PRN Blood Glucose Results, Start date: 09/05/20 0:47:00 PALLIATIVE CARE PHYSICIAN, 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, Stop date: 10/05/20 0:46:00 PALLIATIVE CARE PHYSICIAN, 0 sennosides, 2019-10 No Notes: Jose Francisco [...] 4 mg Product Wasted: ___ mg Melatonin 2020-1 No Notes: Memori a 2-06 (Same as: l 06:47: Melatonin) Raul 00 LR IV 1,000 2019-10 No 1,000 mL, Keesha emoria mL 2-06 Rate: 100 l 06:47: ml/hr, Infuse over: 10 hr, Route: IV, Dosing Weight 104.545 kg, Total Volume: 1,000, Start date: 09/05/20 0:47:00 PALLIATIVE CARE PHYSICIAN, Duration: 1 day, Stop date: 09/06/20 0:46:00 PALLIATIVE CARE PHYSICIAN, 1.97, m2, 0 Tums 2019-10 No Notes: [...] 0.65% 2- (Same as: l solution 06:47: Moca, [place] 00 Deep Sea Nasal [place]). Tessalon 2019-10 No Notes: Memoria Perles 2-06 (Same As: l 06:47: Tessalon Perles) "Do Not Crush" Guaifenesin 2019-10 No Notes: Jose Francisco zhang 2-06 (Same as: l 06:47: Organidin [place] 00 NR) Blistex 2019-10 No Notes: Memoria topical 2-06 Same as: l ointment 06:47: Blistex Ajay n 00 Albuterol 2019-10 No Notes: SEE Me moria 0.83 MG/ML 2-06 RT l Inhalant 06:47: DOCUMENTAT Her ivory Solution 00 ION (Same as: Proventil) Dextrose 2019-10 No 12.5 gm, Memor ia 50% Syringe 2- 25 mL, l (D50W) 06:47: Route: [place] IVP, Drug Form: INJ, Dosing Weight 104.545, kg, PRN, PRN Blood Glucose Results, Start date: 09/05/20 0:47:00 PALLIATIVE CARE PHYSICIAN, 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, Stop date: 10/05/20 0:46:00 PALLIATIVE CARE PHYSICIAN, 0 Glucagon 2019-10 No 1 mg, Memoria 2-06 Route: IM, l 06:47: Drug form: [place] 00 PDR/INJ, PRN, Dosing Weight 104.545, kg, PRN Blood Glucose Results, Start date: 09/05/20 0:47:00 PALLIATIVE CARE PHYSICIAN, 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, Stop date: 10/05/20 0:46:00 PALLIATIVE CARE PHYSICIAN, 0 sennosides, 2019-10 No Notes: Jose Francisco [...] Total Volume: 1,000, Start date: 09/05/20 0:47:00 PALLIATIVE CARE PHYSICIAN, Duration: 1 day, Stop date: 09/06/20 0:46:00 PALLIATIVE CARE PHYSICIAN, 1.97, m2, 0 Tums 2019-10 No Notes: [...] 0.65% 2- (Same as: l solution 06:47: [place], [place] 00 Deep Sea Nasal [place]). Tessalon 2019-10 No Notes: Memoria Perles 2-06 [...] No 12.5 gm, Memor ia 50% Syringe 2- 25 mL, l ([id number]) 06:47: Route: IVP, Drug Form: INJ, Dosing Weight 104.545, kg, PRN, PRN Blood Glucose Results, Start date: 09/05/20 0:47:00 PALLIATIVE CARE PHYSICIAN, 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, Stop date: 10/05/20 0:46:00 PALLIATIVE CARE PHYSICIAN, 0 Glucagon 2019-10 No 1 mg, Memoria 11-06 Route: IM, l 06:47: Drug form: PDR/INJ, PRN, Dosing Weight 104.545, kg, PRN Blood Glucose Results, Start date: 09/05/20 0:47:00 PALLIATIVE CARE PHYSICIAN, 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, Stop date: 10/05/20 0:46:00 PALLIATIVE CARE PHYSICIAN, 0 sennosides, 2019-10 No Notes: Jose Francisco [...] 2-06 (Same as: l 06:47: Melatonin) Raul LR IV 1,000 2019-10 No 1,000 mL, M emoria mL 2-06 Rate: 100 l 06:47: ml/hr, Infuse over: 10 hr, Route: IV, Dosing Weight 104.545 kg, Total Volume: 1,000, Start date: 09/05/20 0:47:00 PALLIATIVE CARE PHYSICIAN, Duration: 1 day, Stop date: 09/06/20 0:46:00 PALLIATIVE CARE PHYSICIAN, 1.97, m2, 0 Tums 2019-10 No Notes: Memoria 2-06 (Same As: l 06:47: Tums) Calcium Carbonate 500 mg = 200 mg elemental calcium Dose = mg calcium carbonate ( mg elemental calcium) Simethicone 2019-10 No Notes: Jose Francisco zhang 2-06 (Same as: l 06:47: Mylicon) [place] 00 Lubricant 2019-10 No Notes: Memori a Eye Drops 2-06 (Same as: l 06:47: Aquasite) Nasal Moist 2019-10 No Notes: Jose Francisco zhang 0.65% 2- (Same as: l solution 06:47: Moca, [place] 00 Deep Sea Nasal [place]). Tessalon 2019-10 No Notes: Memoria Perles 2-06 (Same As: l 06:47: Tessalon Perles) "Do Not Crush" Guaifenesin 2019-10 No Notes: Jose Francisco zahng 2-06 (Same as: l 06:47: Organidin Raul NR) Blistex 2019-10 No Notes: Memoria topical [...] Blood Glucose Results, Start date: 09/05/20 0:47:00 PALLIATIVE CARE PHYSICIAN, 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, Stop date: 10/05/20 0:46:00 PALLIATIVE CARE PHYSICIAN, 0 Glucagon 2019-10 No 1 mg, Memoria 2-06 Route: IM, l 06:47: Drug form: PDR/INJ, PRN, Dosing Weight 104.545, kg, PRN Blood Glucose Results, Start date: 09/05/20 0:47:00 PALLIATIVE CARE PHYSICIAN, 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, Stop date: 10/05/20 0:46:00 PALLIATIVE CARE PHYSICIAN, 0 sennosides, 2019-10 No Notes: Jose Francisco [...] Total Volume: 1,000, Start date: 09/05/20 0:47:00 PALLIATIVE CARE PHYSICIAN, Duration: 1 day, Stop date: 09/06/20 0:46:00 PALLIATIVE CARE PHYSICIAN, 1.97, m2, 0 Tums 2019-10 No Notes: [...] 0.65% 2- (Same as: l solution 06:47: Moca, Raul 00 Deep Sea Nasal [place]). Tessalon 2019-10 No Notes: Memoria Perles 2- [...] Blood Glucose Results, Start date: 09/05/20 0:47:00 PALLIATIVE CARE PHYSICIAN, 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, Stop date: 10/05/20 0:46:00 PALLIATIVE CARE PHYSICIAN, 0 Glucagon 2019-10 No 1 mg, Memoria 11-06 Route: IM, l 06:47: Drug form: PDR/INJ, PRN, Dosing Weight 104.545, kg, PRN Blood Glucose Results, Start date: 09/05/20 0:47:00 PALLIATIVE CARE PHYSICIAN, 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, Stop date: 10/05/20 0:46:00 PALLIATIVE CARE PHYSICIAN, 0 sennosides, 2019-10 No Notes: Jose Francisco zhang SENIOR CARE 2-06 (Same as: l 06:47: Senokot) POLYETHYLEN 2019-10 No Notes: Jose Francisco zhang E GLYCOL 2-06 Dissolve l 3350 06:47: in 8 oz of water or juice. (Same as: Miralax) Ondansetron 2019-10 No Notes: Jose Francisco zhang 2-06 (Same as: l 06:47: Zofran) [place] 00 MEDICATION WASTE Product Size: 4 mg Product Wasted: ___ mg Melatonin 2019-10 No Notes: Memori a 2-06 (Same as: l 06:47: Melatonin) LR IV 1,000 2019-10 No 1,000 mL, M emoria mL 2- Rate: 100 l 06:47: ml/hr, Infuse over: 10 hr, Route: IV, Dosing Weight 104.545 kg, Total Volume: 1,000, Start date: 09/05/20 0:47:00 PALLIATIVE CARE PHYSICIAN, Duration: 1 day, Stop date: 09/06/20 0:46:00 PALLIATIVE CARE PHYSICIAN, 1.97, m2, 0 Tums 2019-10 No Notes: Memoria 2- (Same As: l 06:47: Tums) Calcium Carbonate 500 mg = 200 mg elemental calcium Dose = mg calcium carbonate ( mg elemental calcium) Simethicone 2019-10 No Notes: Jose Francisco zhang 2-06 (Same as: l 06:47: Mylicon) Lubricant 2019-10 No Notes: Memori a Eye Drops - (Same as: l 06:47: Aquasite) Nasal Moist 2019-10 No Notes: Jose Francisco zhang 0.65% - (Same as: l solution 06:47: Moca, [place] Deep Sea Nasal [place]). Tessalon 2019-10 No Notes: Memoria Perles 2- (Same As: l 06:47: Tessalon Perles) "Do Not Crush" Guaifenesin 2019-10 No Notes: Jose Francisco zhang 2-06 (Same as: l 06:47: Organidin [place] 00 NR) Blistex 2019-10 No Notes: Memoria topical 2- Same as: l ointment 06:47: Blistex Ajay n 00 Albuterol 2019-10 No Notes: SEE Me moria 0.83 MG/ML 2-06 RT l Inhalant 06:47: DOCUMENTAT Her ivory Solution 00 ION (Same as: Proventil) Dextrose 2019-10 No 12.5 gm, Memor ia 50% Syringe 2-06 25 mL, l (D50W) 06:47: Route: [place] 00 IVP, Drug Form: INJ, Dosing Weight 104.545, kg, PRN, PRN Blood Glucose Results, Start date: 09/05/20 0:47:00 PALLIATIVE CARE PHYSICIAN, 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, Stop date: 10/05/20 0:46:00 PALLIATIVE CARE PHYSICIAN, 0 Glucagon 2019-10 No 1 mg, Memoria 2-06 Route: IM, l 06:47: Drug form: Raul 00 PDR/INJ, PRN, Dosing Weight 104.545, kg, PRN Blood Glucose Results, Start date: 09/05/20 0:47:00 PALLIATIVE CARE PHYSICIAN, 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, Stop date: 10/05/20 0:46:00 PALLIATIVE CARE PHYSICIAN, 0 sennosides, 2019-10 No Notes: Jose Francisco [...] Total Volume: 1,000, Start date: 09/05/20 0:47:00 PALLIATIVE CARE PHYSICIAN, Duration: 1 day, Stop date: 09/06/20 0:46:00 PALLIATIVE CARE PHYSICIAN, 1.97, m2, 0 Tums 2019-10 No Notes: [...] 0.65% 2-06 (Same as: l solution 06:47: Moca, Deep Sea Nasal [place]). Tessalon 2019-10 No Notes: Memoria Perles 2-06 (Same As: l 06:47: Tessalon Perles) "Do Not Crush" Guaifenesin 2019-10 No Notes: Jose Francisco zhang 2-06 (Same as: l 06:47: Organidin NR) Dextrose 2019-10 No 12.5 gm, Memor ia 50% Syringe 2-06 25 mL, l (D50W) 06:47: Route: IVP, Drug Form: INJ, Dosing Weight 104.545, kg, PRN, PRN Blood Glucose Results, Start date: 09/05/20 0:47:00 PALLIATIVE CARE PHYSICIAN, 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, Stop date: 10/05/20 0:46:00 PALLIATIVE CARE PHYSICIAN, 0 Glucagon 2019-10 No 1 mg, Memoria 11-06 Route: IM, l 06:47: Drug form: PDR/INJ, PRN, Dosing Weight 104.545, kg, PRN Blood Glucose Results, Start date: 09/05/20 0:47:00 PALLIATIVE CARE PHYSICIAN, 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, Stop date: 10/05/20 0:46:00 PALLIATIVE CARE PHYSICIAN, 0 sennosides, 2019-10 No Notes: Jose Francisco [...] mL 2-06 Rate: 100 l 06:47: ml/hr, [place] 00 Infuse over: 10 hr, Route: IV, Dosing Weight 104.545 kg, Total Volume: 1,000, Start date: 09/05/20 0:47:00 PALLIATIVE CARE PHYSICIAN, Duration: 1 day, Stop date: 09/06/20 0:46:00 PALLIATIVE CARE PHYSICIAN, 1.97, m2, 0 Tums 2019-10 No Notes: Memoria 2-06 (Same As: l 06:47: Tums) [place] 00 Calcium Carbonate 500 mg = 200 mg elemental calcium Dose = mg calcium carbonate ( mg elemental calcium) Simethicone 2019-10 No Notes: Jose Francisco zhang 2-06 (Same as: l 06:47: Mylicon) [place] 00 Lubricant 2019-10 No Notes: Memori a Eye Drops 2-06 (Same as: l 06:47: Aquasite) Raul 00 Nasal Moist 2019-10 No Notes: Jose Francisco zhang 0.65% 2-06 (Same as: l solution 06:47: Moca, Raul 00 Deep Sea Nasal [place]). Tessalon 2019-10 No Notes: Memoria Perles 2-06 (Same As: l 06:47: Tessalon [place] 00 Perles) "Do Not Crush" Guaifenesin 2019-10 No Notes: Jose Francisco zhang 2-06 (Same as: l 06:47: Organidin [place] 00 NR) Blistex 2019-10 No Notes: Memoria [...] Blood Glucose Results, Start date: 09/05/20 0:47:00 PALLIATIVE CARE PHYSICIAN, 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, Stop date: 10/05/20 0:46:00 PALLIATIVE CARE PHYSICIAN, 0 Glucagon 2019-10 No 1 mg, Memoria 2 Route: IM, l 06:47: Drug form: Raul 00 PDR/INJ, PRN, Dosing Weight 104.545, kg, PRN Blood Glucose Results, Start date: 09/05/20 0:47:00 PALLIATIVE CARE PHYSICIAN, 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, Stop date: 10/05/20 0:46:00 PALLIATIVE CARE PHYSICIAN, 0 sennosides, 2019-10 No Notes: Jose Francisco [...] Total Volume: 1,000, Start date: 09/05/20 0:47:00 PALLIATIVE CARE PHYSICIAN, Duration: 1 day, Stop date: 09/06/20 0:46:00 PALLIATIVE CARE PHYSICIAN, 1.97, m2, 0 Tums 2019-10 No Notes: Memoria 2-06 (Same As: l 06:47: Tums) Calcium Carbonate 500 mg = 200 mg elemental calcium Dose = mg calcium carbonate ( mg elemental calcium) Simethicone 2019-10 No Notes: Jose Francisco zhang 2-06 (Same as: l 06:47: Mylicon) Raul 00 Lubricant 2019-10 No Notes: Memori a Eye Drops 2-06 (Same as: l 06:47: Aquasite) [place] 00 Nasal Moist 2019-10 No Notes: Jose Francisco zhang 0.65% 2-06 (Same as: l solution 06:47: Moca, Raul 00 Deep Sea Nasal [place]). Tessalon 2019-10 No Notes: Memoria Perles 2-06 [...] zhang 2-06 (Same as: l 06:45: Apresoline [place] 00 ) Push over 5 minutes Hydralazine 2019-10 No Notes: Jose Francisco zhang 2-06 (Same as: l 06:45: Apresoline Raul 00 ) Push over 5 minutes Hydralazine 2019-10 No Notes: Jose Francisco zhang 2-06 (Same as: l 06:45: Apresoline [place] 00 ) Push over 5 minutes Hydralazine 2019-10 No Notes: Jose Francisco zhang 2-06 (Same as: l 06:45: Apresoline [place] 00 ) Push over 5 minutes Hydralazine 2019-10 No Notes: Jose Francisco zhang 2-06 (Same as: l 06:45: Apresoline Raul 00 ) Push over 5 minutes Hydralazine 2019-10 No Notes: Jose Francisco zhang 2-06 (Same as: l 06:45: Apresoline Raul 00 ) Push over 5 minutes Hydralazine 2019-10 No Notes: Jose Francisco zhang 2-06 (Same as: l 06:45: Apresoline [place] 00 ) Push over 5 minutes Hydralazine 2019-10 No Notes: Jose Francisco zhang 2-06 (Same as: l 06:45: Apresoline [place] 00 ) Push over 5 minutes Hydralazine [...] kg, ONCE, STAT, Start date: 09/04/20 22:07:00 PALLIATIVE CARE PHYSICIAN, Stop date: 09/04/20 22:07:00 PALLIATIVE CARE PHYSICIAN Acetaminoph 2019-10 No 1 tab, Jose Francisco zhang en 325 MG / 2-06 Route: PO, l Hydrocodone 04:07: Drug Form: Raul Bitartrate 00 TAB, 5 MG Oral Dosing Tablet Weight 104.545, kg, ONCE, STAT, Start date: 09/04/20 22:07:00 PALLIATIVE CARE PHYSICIAN, Stop date: 09/04/20 22:07:00 PALLIATIVE CARE PHYSICIAN Acetaminoph 2019-10 No 1 tab, Jose Francisco zhang en 325 MG / 2-06 Route: PO, l Hydrocodone 04:07: Drug Form: Raul Bitartrate 00 TAB, 5 MG Oral Dosing Tablet Weight 104.545, kg, ONCE, STAT, Start date: 09/04/20 22:07:00 PALLIATIVE CARE PHYSICIAN, Stop date: 09/04/20 22:07:00 PALLIATIVE CARE PHYSICIAN Acetaminoph 2019-10 No 1 tab, Jose Francisco zhang en 325 MG / 2-06 Route: PO, l Hydrocodone 04:07: Drug Form: [place] Bitartrate 00 TAB, 5 MG Oral Dosing Tablet Weight 104.545, kg, ONCE, STAT, Start date: 09/04/20 22:07:00 PALLIATIVE CARE PHYSICIAN, Stop date: 09/04/20 22:07:00 PALLIATIVE CARE PHYSICIAN Acetaminoph 2019-10 No 1 tab, Jose Francisco zhang en 325 MG / 2-06 Route: PO, l Hydrocodone 04:07: Drug Form: [place] Bitartrate 00 TAB, 5 MG Oral Dosing Tablet Weight 104.545, kg, ONCE, STAT, Start date: 09/04/20 22:07:00 PALLIATIVE CARE PHYSICIAN, Stop date: 09/04/20 22:07:00 PALLIATIVE CARE PHYSICIAN Acetaminoph 2019-10 No 1 tab, Jose Francisco zhang en 325 MG / 2-06 Route: PO, l Hydrocodone 04:07: Drug Form: [place] Bitartrate 00 TAB, 5 MG Oral Dosing Tablet Weight 104.545, kg, ONCE, STAT, Start date: 09/04/20 22:07:00 PALLIATIVE CARE PHYSICIAN, Stop date: 09/04/20 22:07:00 PALLIATIVE CARE PHYSICIAN Acetaminoph 2019-10 No 1 tab, Jose Francisco zhang en 325 MG / 2-06 Route: PO, l Hydrocodone 04:07: Drug Form: Arul Bitartrate 00 TAB, 5 MG Oral Dosing Tablet Weight 104.545, kg, ONCE, STAT, Start date: 09/04/20 22:07:00 PALLIATIVE CARE PHYSICIAN, Stop date: 09/04/20 22:07:00 PALLIATIVE CARE PHYSICIAN Acetaminoph 2019-10 No 1 tab, Jose Francisco zhang en 325 MG / 2-06 Route: PO, l Hydrocodone 04:07: Drug Form: Raul Bitartrate 00 TAB, 5 MG Oral Dosing Tablet Weight 104.545, kg, ONCE, STAT, Start date: 09/04/20 22:07:00 PALLIATIVE CARE PHYSICIAN, Stop date: 09/04/20 22:07:00 PALLIATIVE CARE PHYSICIAN Acetaminoph 2019-10 No 1 tab, Jose Francisco zhang en 325 MG / 2-06 Route: PO, l Hydrocodone 04:07: Drug Form: [place] Bitartrate 00 TAB, 5 MG Oral Dosing Tablet Weight 104.545, kg, ONCE, STAT, Start date: 09/04/20 22:07:00 PALLIATIVE CARE PHYSICIAN, Stop date: 09/04/20 22:07:00 PALLIATIVE CARE PHYSICIAN Acetaminoph 2019-10 No 1 tab, Jose Francisco zhang en 325 MG / 2-06 Route: PO, l Hydrocodone 04:07: Drug Form: [place] Bitartrate 00 TAB, 5 MG Oral Dosing Tablet Weight 104.545, kg, ONCE, STAT, Start date: 09/04/20 22:07:00 PALLIATIVE CARE PHYSICIAN, Stop date: 09/04/20 22:07:00 PALLIATIVE CARE PHYSICIAN HYDROcodone 2019-0 2020- No 1{tbl} 1 tablet, [facility] -acetaminop 06-28 Oral, ity of hen (NORCO 20:30: 19:23 ONCE, 1 Carlos as 5) 5-325 mg 00 :00 dose, Mon Med ical tablet 1 06/28/20 at [facility] h tablet 1530, DIMITRIS metoprolol 2019- [...] hours as needed. ALBUTEROL 2020-0 [facility] [...] rs SULFATE 9-28 ity of INHALE 12:14: [place] [address] [facility] diphenoxyla 2020-0 Yes 1{tbl} Take 1 Un martha te-atropine 9-28 tablet by ity of (LOMOTIL) 12:14: mouth [place] 2.5-0.025 43 every 6 Medical mg tablet (six) Branch hours as needed. ALBUTEROL 2020-0 Yes Inhale. Unive rs SULFATE 9-28 ity of INHALE 12:14: [place] [address] [facility] acetaminoph 2020-0 Yes 4647 1{tbl} [...] Jessie nn 00 tab, 3 Refill(s), Pharmacy: [facility] #[id number], 149.86, cm, 05/25/20 13:41:00 CDT, Height, 95.455, kg, 05/25/20 13:41:00 CDT, Weight primidone 2020-0 Yes 50 mg = 1 Mem oria 50 mg oral 8-25 tab, PO, l tablet 19:03: BID, # 180 Jessie nn 00 tab, 3 Refill(s), Pharmacy: [id number], 149.86, cm, 05/25/20 13:41:00 CDT, Height, 95.455, kg, 05/25/20 13:41:00 CDT, Weight primidone 2020-0 Yes 50 mg = 1 Mem oria 50 mg oral 8-25 tab, PO, l tablet 19:03: BID, # 180 Jessie nn 00 tab, 3 Refill(s), Pharmacy: [id number], 149.86, cm, 05/25/20 13:41:00 CDT, Height, 95.455, kg, 05/25/20 13:41:00 CDT, Weight primidone 2020-0 Yes 50 mg = 1 Mem oria 50 mg oral 8-25 tab, PO, l tablet 19:03: BID, # 180 Jessie nn 00 tab, 3 Refill(s), Pharmacy: [id number], 149.86, cm, 05/25/20 13:41:00 CDT, Height, 95.455, kg, 05/25/20 13:41:00 CDT, Weight primidone 2020-0 Yes 50 mg = 1 Mem oria 50 mg oral 8-25 tab, PO, l tablet 19:03: BID, # 180 Jessie nn 00 tab, 3 Refill(s), Pharmacy: [id number], 149.86, cm, 05/25/20 13:41:00 CDT, Height, 95.455, kg, 05/25/20 13:41:00 CDT, Weight primidone 2020-0 Yes 50 mg = 1 Mem oria 50 mg oral 8-25 tab, PO, l tablet 19:03: BID, # 180 Jessie nn 00 tab, 3 Refill(s), Pharmacy: [id number], 149.86, cm, 05/25/20 13:41:00 CDT, Height, 95.455, kg, 05/25/20 13:41:00 CDT, Weight primidone 2020-0 Yes 50 mg = 1 Mem oria 50 mg oral 8-25 tab, PO, l tablet 19:03: BID, # 180 Jessie nn 00 tab, 3 Refill(s), Pharmacy: [facility] #[id number], 149.86, cm, 05/25/20 13:41:00 CDT, Height, 95.455, kg, 05/25/20 13:41:00 CDT, Weight primidone 2020-0 Yes 50 mg = 1 Mem oria 50 mg oral 8-25 tab, PO, l tablet 19:03: BID, # 180 Jessie nn 00 tab, 3 Refill(s), Pharmacy: [facility] #[id number], 149.86, cm, 05/25/20 13:41:00 CDT, Height, 95.455, kg, 05/25/20 13:41:00 CDT, Weight primidone 2020-0 Yes 50 mg = 1 Mem oria 50 mg oral 8-25 tab, PO, l tablet 19:03: BID, # 180 Jessie nn 00 tab, 3 Refill(s), Pharmacy: [facility] #[id number], 149.86, cm, 05/25/20 13:41:00 CDT, Height, 95.455, kg, 05/25/20 13:41:00 CDT, Weight primidone 2020-0 Yes 50 mg = 1 Mem oria 50 mg oral 8-25 tab, PO, l tablet 19:03: BID, # 180 Jessie nn 00 tab, 3 Refill(s), Pharmacy: [facility] #[id number], 149.86, cm, 05/25/20 13:41:00 CDT, Height, 95.455, kg, 05/25/20 13:41:00 CDT, Weight primidone 2020-0 No 50 mg = 1 Mem oria 50 mg oral 6-25 tab, PO, l tablet 13:48: Bedtime, # Jessie nn 00 90 tab, 3 Refill(s), Pharmacy: [facility] #[id number], 149.86, cm, 03/24/20 9:12:00 CDT, Height, 90.909, kg, 03/24/20 9:12:00 CDT, Weight primidone 2020-0 No 50 mg = 1 Mem oria 50 mg oral 6-25 tab, PO, l tablet 13:48: Bedtime, # Jessie nn 00 90 tab, 3 Refill(s), Pharmacy: [facility] #[id number], 149.86, cm, 03/24/20 9:12:00 CDT, Height, 90.909, kg, 03/24/20 9:12:00 CDT, Weight primidone 2020-0 No 50 mg = 1 Mem oria 50 mg oral 6-25 tab, PO, l tablet 13:48: Bedtime, # Jessie nn 00 90 tab, 3 Refill(s), Pharmacy: [facility] #[id number], 149.86, cm, 03/24/20 9:12:00 CDT, Height, 90.909, kg, 03/24/20 9:12:00 CDT, Weight primidone 2020-0 No 50 mg = 1 Mem oria 50 mg oral 6-25 tab, PO, l tablet 13:48: Bedtime, # Jessie nn 00 90 tab, 3 Refill(s), Pharmacy: [facility] #[id number], 149.86, cm, 03/24/20 9:12:00 CDT, Height, 90.909, kg, 03/24/20 9:12:00 CDT, Weight primidone 2020-0 No 50 mg = 1 Mem oria 50 mg oral 6-25 tab, PO, l tablet 13:48: Bedtime, # Jessie nn 00 90 tab, 3 Refill(s), Pharmacy: [id number], 149.86, cm, 03/24/20 9:12:00 CDT, Height, 90.909, kg, 03/24/20 9:12:00 CDT, Weight primidone 2020-0 No 50 mg = 1 Mem oria 50 mg oral 6-25 tab, PO, l tablet 13:48: Bedtime, # Jessie nn 00 90 tab, 3 Refill(s), Pharmacy: [facility] #[id number], 149.86, cm, 03/24/20 9:12:00 CDT, Height, 90.909, kg, 03/24/20 9:12:00 CDT, Weight primidone 2020-0 No 50 mg = 1 Mem oria 50 mg oral 6-25 tab, PO, l tablet 13:48: Bedtime, # Jessie nn 00 90 tab, 3 Refill(s), Pharmacy: [facility] #[id number], 149.86, cm, 03/24/20 9:12:00 CDT, Height, 90.909, kg, 03/24/20 9:12:00 CDT, Weight primidone 2020-0 No 50 mg = 1 Mem oria 50 mg oral 6-25 tab, PO, l tablet 13:48: Bedtime, # Jessie nn 00 90 tab, 3 Refill(s), Pharmacy: [facility] #[id number], 149.86, cm, 03/24/20 9:12:00 CDT, Height, 90.909, kg, 03/24/20 9:12:00 CDT, Weight primidone 2020-0 No 50 mg = 1 Mem oria 50 mg oral 6-25 tab, PO, l tablet 13:48: Bedtime, # Jessie nn 00 90 tab, 3 Refill(s), Pharmacy: [facility] #[id number], 149.86, cm, 03/24/20 9:12:00 CDT, Height, 90.909, kg, 03/24/20 9:12:00 CDT, Weight primidone 2020-0 No 50 mg = 1 Mem oria 50 mg oral 6-25 tab, PO, l tablet 13:48: Bedtime, # Jessie nn 00 90 tab, 3 Refill(s), Pharmacy: [facility] #[id number], 149.86, cm, 03/24/20 9:12:00 CDT, Height, 90.909, kg, 03/24/20 9:12:00 CDT, Weight donepezil 2020-0 Yes 10 mg = 1 Mem oria 10 mg oral 6-24 tab, PO, l tablet 14:32: Daily, # [place] 00 30 tab, 3 Refill(s), Pharmacy: [facility] #[id number], 149.86, cm, 03/24/20 9:12:00 CDT, Height, 90.909, kg, 03/24/20 9:12:00 CDT, Weight primidone 2020-0 No 50 mg = 1 Mem oria 50 mg oral 6-24 tab, PO, l tablet 14:32: Bedtime, X Jessie nn 30 day, # 30 tab, 3 Refill(s), Pharmacy: [facility] #[id number], 149.86, cm, 03/24/20 9:12:00 CDT, Height, 90.909, kg, 03/24/20 9:12:00 CDT, Weight donepezil 2020-0 Yes 10 mg = 1 Mem oria 10 mg oral 6-24 tab, PO, l tablet 14:32: Daily, # [place] 00 30 tab, 3 Refill(s), Pharmacy: [facility] #[id number], 149.86, cm, 03/24/20 9:12:00 CDT, Height, 90.909, kg, 03/24/20 9:12:00 CDT, Weight primidone 2020-0 No 50 mg = 1 Mem oria 50 mg oral 6-24 tab, PO, l tablet 14:32: Bedtime, X Jessie nn 30 day, # 30 tab, 3 Refill(s), Pharmacy: [facility] #[id number], 149.86, cm, 03/24/20 9:12:00 CDT, Height, 90.909, kg, 03/24/20 9:12:00 CDT, Weight donepezil 2020-0 Yes 10 mg = 1 Mem oria 10 mg oral 6-24 tab, PO, l tablet 14:32: Daily, # Raul 00 30 tab, 3 Refill(s), Pharmacy: [facility] #[id number], 149.86, cm, 03/24/20 9:12:00 CDT, Height, 90.909, kg, 03/24/20 9:12:00 CDT, Weight primidone 2020-0 No 50 mg = 1 Mem oria 50 mg oral 6-24 tab, PO, l tablet 14:32: Bedtime, X Jessie nn 30 day, # 30 tab, 3 Refill(s), Pharmacy: [id number], 149.86, cm, 03/24/20 9:12:00 CDT, Height, 90.909, kg, 03/24/20 9:12:00 CDT, Weight donepezil 2020-0 Yes 10 mg = 1 Mem oria 10 mg oral 6-24 tab, PO, l tablet 14:32: Daily, # Raul 00 30 tab, 3 Refill(s), Pharmacy: [facility] #[id number], 149.86, cm, 03/24/20 9:12:00 CDT, Height, 90.909, kg, 03/24/20 9:12:00 CDT, Weight primidone 2020-0 No 50 mg = 1 Mem oria 50 mg oral 6-24 tab, PO, l tablet 14:32: Bedtime, X Jessie nn 30 day, # 30 tab, 3 Refill(s), Pharmacy: [facility] #[id number], 149.86, cm, 03/24/20 9:12:00 CDT, Height, 90.909, kg, 03/24/20 9:12:00 CDT, Weight donepezil 2020-0 Yes 10 mg = 1 Mem oria 10 mg oral 6-24 tab, PO, l tablet 14:32: Daily, # [place] 00 30 tab, 3 Refill(s), Pharmacy: [facility] #[id number], 149.86, cm, 03/24/20 9:12:00 CDT, Height, 90.909, kg, 03/24/20 9:12:00 CDT, Weight primidone 2020-0 No 50 mg = 1 Mem oria 50 mg oral 6-24 tab, PO, l tablet 14:32: Bedtime, X Jessie nn 30 day, # 30 tab, 3 Refill(s), Pharmacy: [facility] #[id number], 149.86, cm, 03/24/20 9:12:00 CDT, Height, 90.909, kg, 03/24/20 9:12:00 CDT, Weight donepezil 2020-0 Yes 10 mg = 1 Mem oria 10 mg oral 6-24 tab, PO, l tablet 14:32: Daily, # [place] 00 30 tab, 3 Refill(s), Pharmacy: [facility] #[id number], 149.86, cm, 03/24/20 9:12:00 CDT, Height, 90.909, kg, 03/24/20 9:12:00 CDT, Weight primidone 2020-0 No 50 mg = 1 Mem oria 50 mg oral 6-24 tab, PO, l tablet 14:32: Bedtime, X Jessie nn 30 day, # 30 tab, 3 Refill(s), Pharmacy: [id number], 149.86, cm, 03/24/20 9:12:00 CDT, Height, 90.909, kg, 03/24/20 9:12:00 CDT, Weight donepezil 2020-0 Yes 10 mg = 1 Mem oria 10 mg oral 6-24 tab, PO, l tablet 14:32: Daily, # [place] 00 30 tab, 3 Refill(s), Pharmacy: [facility] #[id number], 149.86, cm, 03/24/20 9:12:00 CDT, Height, 90.909, kg, 03/24/20 9:12:00 CDT, Weight primidone 2020-0 No 50 mg = 1 Mem oria 50 mg oral 6-24 tab, PO, l tablet 14:32: Bedtime, X Jessie nn 30 day, # 30 tab, 3 Refill(s), Pharmacy: [facility] #[id number], 149.86, cm, 03/24/20 9:12:00 CDT, Height, 90.909, kg, 03/24/20 9:12:00 CDT, Weight donepezil 2020-0 Yes 10 mg = 1 Mem oria 10 mg oral 6-24 tab, PO, l tablet 14:32: Daily, # Raul 00 30 tab, 3 Refill(s), Pharmacy: [facility] #[id number], 149.86, cm, 03/24/20 9:12:00 CDT, Height, 90.909, kg, 03/24/20 9:12:00 CDT, Weight primidone 2020-0 No 50 mg = 1 Mem oria 50 mg oral 6-24 tab, PO, l tablet 14:32: Bedtime, X Jessie nn 30 day, # 30 tab, 3 Refill(s), Pharmacy: [id number], 149.86, cm, 03/24/20 9:12:00 CDT, Height, 90.909, kg, 03/24/20 9:12:00 CDT, Weight donepezil 2020-0 Yes 10 mg = 1 Mem oria 10 mg oral 6-24 tab, PO, l tablet 14:32: Daily, # [place] 00 30 tab, 3 Refill(s), Pharmacy: [facility] #[id number], 149.86, cm, 03/24/20 9:12:00 CDT, Height, 90.909, kg, 03/24/20 9:12:00 CDT, Weight primidone 2020-0 No 50 mg = 1 Mem oria 50 mg oral 6-24 tab, PO, l tablet 14:32: Bedtime, X Jessie nn 30 day, # 30 tab, 3 Refill(s), Pharmacy: [facility] #[id number], 149.86, cm, 03/24/20 9:12:00 CDT, Height, 90.909, kg, 03/24/20 9:12:00 CDT, Weight donepezil 2020-0 Yes 10 mg = 1 Mem oria 10 mg oral 6-24 tab, PO, l tablet 14:32: Daily, # Raul 00 30 tab, 3 Refill(s), Pharmacy: [facility] #[id number], 149.86, cm, 03/24/20 9:12:00 CDT, Height, 90.909, kg, 03/24/20 9:12:00 CDT, Weight primidone 2019-0 No 50 mg = 1 Mem oria 50 mg oral 6-24 tab, PO, l tablet 14:32: Bedtime, X Jessie nn day, # 30 tab, 3 Refill(s), Pharmacy: [facility] #[id number], 149.86, cm, 03/24/20 9:12:00 CDT, Height, 90.909, kg, 03/24/20 9:12:00 CDT, Weight sucralfate 2019-0 Yes [id number] .[id number][in_ Apply 0.25 [facility], 5- us] Inches as ity of polymerized 00:00: directed 4 [place] 1 gram/10 00 (four) Medical mL Pste times [place] daily as needed for Pain (scale 1-3). sucralfate 2019-0 2020- No [id number][in_ Apply 0.25 [employer] [facility], 5-21 06-28 [...] [Topamax] 00 30 tab, 3 Refill(s) topiramate 2019- No 25 mg = 1 Me moria 25 MG Oral 0-24 tab, PO, l Tablet 20:22: Bedtime, # Jessie nn [Topamax] 00 30 tab, 3 Refill(s) Walker 2018- Yes 1 ea, Memoria 7-26 MISC, l 21:45: Daily, # 1 Raul 00 ea, 0 Refill(s) Walker 2018- Yes 1 ea, Memoria 7-26 MISC, l 21:45: Daily, # 1 [place] 00 ea, 0 Refill(s) Walker Yes 1 ea, Memoria 7-26 MISC, l 21:45: Daily, # 1 Raul 00 ea, 0 Refill(s) Walker Yes 1 ea, Memoria 7-26 MISC, l 21:45: Daily, # 1 [place] 00 ea, 0 Refill(s) Walker 2018- Yes 1 ea, Memoria 7-26 MISC, l 21:45: Daily, # 1 [place] 00 ea, 0 Refill(s) Walker 2018- Yes 1 ea, Memoria 7-26 MISC, l 21:45: Daily, # 1 Raul 00 ea, 0 Refill(s) Walker 2018-0 Yes 1 ea, Memoria 7-26 MISC, l 21:45: Daily, # 1 Raul 00 ea, 0 Refill(s) Walker 2018- Yes 1 ea, Memoria 7-26 MISC, l 21:45: Daily, # 1 [place] 00 ea, 0 Refill(s) Walker 2018- Yes [...] 00 30 tab, 3 chewable Refill(s), Pharmacy: [facility] #[id number] Adult 2019-0 Yes 81 mg = 1 Memoria Aspirin 81 6-21 tab, CHEW, l mg oral 20:18: Daily, # Ajay n tablet, 00 30 tab, 3 chewable Refill(s), [id number] Adult 2019-0 Yes 81 mg = 1 Memoria Aspirin 81 6-21 tab, CHEW, l mg oral 20:18: Daily, # Ajay n tablet, 00 30 tab, 3 chewable Refill(s), [id number] Adult 2019-0 Yes 81 mg = 1 Memoria Aspirin 81 6-21 tab, CHEW, l mg oral 20:18: Daily, # Ajay n tablet, 00 30 tab, 3 chewable Refill(s), [id number] Adult 2019-0 Yes 81 mg = 1 Memoria Aspirin 81 6-21 tab, CHEW, l mg oral 20:18: Daily, # Ajay n tablet, 00 30 tab, 3 chewable Refill(s), [id number] Adult 2019-0 Yes 81 mg = 1 Memoria Aspirin 81 6-21 tab, CHEW, l mg oral 20:18: Daily, # Ajay n tablet, 00 30 tab, 3 chewable Refill(s), [id number] Adult 2019-0 Yes 81 mg = 1 Memoria Aspirin 81 6-21 tab, CHEW, l mg oral 20:18: Daily, # Ajay n tablet, 00 30 tab, 3 chewable Refill(s), [id number] Adult 2019-0 Yes 81 mg = 1 Memoria Aspirin 81 6-21 tab, CHEW, l mg oral 20:18: Daily, # Ajay n tablet, 00 30 tab, 3 chewable Refill(s), [id number] Adult 2019-0 Yes 81 mg = 1 Memoria Aspirin 81 6-21 tab, CHEW, l mg oral 20:18: Daily, # Ajay n tablet, 00 30 tab, 3 chewable Refill(s), [id number] Adult 2019-0 Yes 81 mg = 1 Memoria Aspirin 81 6-21 tab, CHEW, l mg oral 20:18: Daily, # Ajay n tablet, 00 30 tab, 3 chewable Refill(s), [id number] levothyroxi 2019-0 Yes 125 Memori a [...] tab, PO, l tablet 20:06: Daily, # [place] 00 30 tab, 0 Refill(s) donepezil 2019 Yes 10 mg = 1 Mem oria 10 mg oral 5-24 tab, PO, l tablet 20:06: Daily, # Raul 00 30 tab, 0 Refill(s) metoprolol 2019 Yes 50 mg = 1 Me moria 50 mg oral 5-24 tab, PO, l tablet, 20:06: Daily, # Ajay n extended 00 30 tab, 0 release Refill(s) Escitalopra 2019- Yes 20 mg = 1 M emoria m 20 MG 5-24 tab, PO, l Oral Tablet 20:06: Daily, # Catalino monterobernie [Lexapro] 00 30 tab, 0 Refill(s) omeprazole 2019- Yes 40 mg = 1 Me moria 40 mg oral 5-24 cap, PO, l delayed 20:06: Daily, # Ajay n release 00 30 cap, 0 capsule Refill(s) amLODIPine 2019- Yes 5 mg = 1 Mem oria 5 mg oral 5-24 tab, PO, l tablet 20:06: Daily, # [place] 00 90 tab, 0 Refill(s) Atropine 2019-0 [...] tab, PO, l tablet 20:06: BID, 0 [place] 00 Refill(s) lisinopril 2019-0 Yes 40 mg = 1 Me moria 40 mg oral 5-24 tab, PO, l tablet 20:06: Daily, # [place] 00 30 tab, 0 Refill(s) ProAir HFA 2019-0 Yes 1 - 2 Memori a 5-24 puffs, PO, l 20:06: Q4H, PRN Raul 00 Wheezing / cough / shortness of breath, # 1 ea, 0 Refill(s) donepezil 2019-0 Yes 10 mg = 1 Mem oria 10 mg oral 5-24 tab, PO, l tablet 20:06: Daily, # [place] 00 30 tab, 0 Refill(s) ProAir HFA [...] tab, PO, l tablet 20:06: Daily, # [place] 00 90 tab, 0 Refill(s) Atropine 2018-0 Yes 2 tab, PO, Mem oria Sulfate [...] 20:06: BID, 0 Raul 00 Refill(s) lisinopril 20190 Yes 40 mg = 1 Me moria 40 mg oral 5-24 tab, PO, l tablet 20:06: Daily, # [place] 00 30 tab, 0 Refill(s) donepezil 2019-0 Yes 10 mg = 1 Mem oria 10 mg oral 5-24 tab, PO, l tablet 20:06: Daily, # [place] 00 30 tab, 0 Refill(s) ProAir HFA [...] 0.025 MG / 20:06: for loose Catalino aleksandra Diphenoxyla 00 stool, 0 te Refill(s) Hydrochlori [...] tab, PO, l tablet 20:06: Daily, # [place] 00 30 tab, 0 Refill(s) donepezil 0 Yes 10 mg = 1 Mem oria 10 mg oral 5-24 tab, PO, l tablet 20:06: Daily, # Raul 00 30 tab, 0 Refill(s) ProAir HFA 2019-0 Yes 1 - 2 Memori a 5-24 puffs, PO, l 20:06: Q4H, PRN [place] 00 Wheezing / cough / shortness of [...] tab, PO, l tablet 20:06: BID, 0 [place] 00 Refill(s) lisinopril Yes 40 mg = 1 Me moria 40 mg oral 5-24 tab, PO, l tablet 20:06: Daily, # [place] 00 30 tab, 0 Refill(s) donepezil Yes [...] tab, PO, l tablet 20:06: Daily, # [place] 00 90 tab, 0 Refill(s) Atropine 2019-0 [...] tab, PO, l tablet 20:06: BID, 0 [place] 00 Refill(s) lisinopril 20190 Yes 40 mg = 1 Me moria 40 mg oral 5-24 tab, PO, l tablet 20:06: Daily, # [place] 00 30 tab, 0 Refill(s) donepezil 2019-0 Yes 10 mg = 1 Mem oria 10 mg oral 5-24 tab, PO, l tablet 20:06: Daily, # Raul 00 30 tab, 0 Refill(s) ProAir HFA 2019-0 Yes 1 - 2 Memori a 5-24 puffs, PO, l 20:06: Q4H, PRN [place] 00 Wheezing / cough / shortness of breath, # 1 ea, 0 Refill(s) metoprolol 2018-0 Yes 50 mg = 1 Me moria [...] tab, PO, l tablet 20:06: Daily, # [place] 00 90 tab, 0 Refill(s) Atropine 2019- [...] tab, PO, l tablet 20:06: BID, 0 [place] 00 Refill(s) lisinopril Yes 40 mg = 1 Me moria 40 mg oral 5-24 tab, PO, l tablet 20:06: Daily, # Raul 00 30 tab, 0 Refill(s) donepezil 2019- Yes 10 mg = 1 Mem oria 10 mg oral 5-24 tab, PO, l tablet 20:06: Daily, # [place] 00 30 tab, 0 Refill(s) ProAir HFA 2018-0 Yes 1 - 2 Memori a 5-24 puffs, PO, l 20:06: Q4H, PRN [place] 00 Wheezing / cough / shortness of breath, # 1 ea, 0 Refill(s) metoprolol 2018- Yes 50 mg = 1 Me moria [...] tab, PO, l tablet 20:06: BID, 0 [place] 00 Refill(s) lisinopril 2019- Yes 40 mg = 1 Me moria 40 mg oral 5-24 tab, PO, l tablet 20:06: Daily, # [place] 00 30 tab, 0 Refill(s) donepezil 2019-0 Yes 10 mg = 1 Mem oria 10 mg oral 5-24 tab, PO, l tablet 20:06: Daily, # [place] 00 30 tab, 0 Refill(s) ProAir HFA 2018-0 Yes 1 - 2 Memori a 5-24 puffs, PO, l 20:06: Q4H, PRN [place] 00 Wheezing / cough / shortness of breath, # 1 ea, 0 Refill(s) metoprolol 2018-0 Yes 50 mg = 1 Me moria [...] tab, PO, l tablet 20:06: Daily, # [place] 00 90 tab, 0 Refill(s) Atropine 2019-0 [...] tab, PO, l tablet 20:06: BID, 0 [place] 00 Refill(s) lisinopril 2019 Yes 40 mg = 1 Me moria 40 mg oral 5-24 tab, PO, l tablet 20:06: Daily, # Raul 00 30 tab, 0 Refill(s) donepezil 2018- Yes 10 mg = 1 Mem oria 10 mg oral 5-24 tab, PO, l tablet 20:06: Daily, # Raul 00 30 tab, 0 Refill(s) ProAir HFA 0 Yes 1 - 2 Memori a 5-24 puffs, PO, l 20:06: Q4H, PRN [place] 00 Wheezing / cough / shortness of breath, # 1 ea, 0 Refill(s) metoprolol 2018-0 Yes 50 mg = 1 Me moria 50 mg oral 5-24 tab, PO, l tablet, 20:06: Daily, # Ajay n extended 00 30 tab, 0 release Refill(s) Escitalopra 2018- Yes 20 mg = 1 M emoria [...] tab, PO, l tablet 20:06: BID, 0 [place] 00 Refill(s) lisinopril 2019- Yes 40 mg = 1 Me moria 40 mg oral 5-24 tab, PO, l tablet 20:06: Daily, # Raul 00 30 tab, 0 Refill(s) donepezil Yes 10 mg = 1 Mem oria 10 mg oral 5-24 tab, PO, l tablet 20:06: Daily, # [place] 00 30 tab, 0 Refill(s) ProAir HFA Yes 1 - 2 Memori a 5-24 puffs, PO, l 20:06: Q4H, PRN Raul 00 Wheezing / cough / shortness of breath, # 1 ea, 0 Refill(s) [facility] 300[facility]30 mg 00:00: [place] tablet [address] [place] [address] Branch acetaminoph 2017-10 [facility] ity of 300-30 mg 00:00: [place] tablet [facility] acetaminoph 2017-10 2020- No Unive rs en-codeine -18 09-28 ity of 300-30 mg 00:00: 00:00 [place] tablet 00 :00 Medical Branch lisinopril 20170 Yes 40mg Take [...] 17:04: daily. [place] 36 Medical Branch lovastatin 0 Yes 20mg Take [...] 36 Medical 24 hr Branch tablet rOPINIRole 0 Yes 2mg Take 2 mg Un martha [...] mouth ity of mg tablet 17:04: daily. [place] [address] Medical Branch lovastatin 2017-0 Yes 20mg Take [...] daily. [place] capsule 36 Medical Branch metoprolol 20170 Yes 50mg Take 50 mg U nivers succinate 3-07 by mouth ity of XL (TOPROL 17:04: daily. [place] XL) 50 mg 36 Medical 24 hr Branch tablet rOPINIRole 20170 Yes 2mg Take 2 mg Un martha (REQUIP) 2 3-07 by mouth 2 ity of mg tablet 17:04: (two) [place] 36 times Medical daily. Branch levothyroxi 0 Yes 125ug Take 125 U nivers ne 3-07 mcg by ity of (SYNTHROID) 17:04: mouth [place] 125 mcg 36 daily. Medical tablet Branch donepezil 20170 Yes 10mg Take 10 mg Un martha (ARICEPT) 3-07 by mouth ity of 10 mg 17:04: daily. [place] tablet Medical Branch amLODIPine 2017-0 Yes 5mg Take 5 mg Un martha (NORVASC) 5 3-07 by mouth ity of mg tablet 17:04: daily. [place] [address] Medical Branch lovastatin 2017-0 Yes 20mg Take 20 mg U nivers (MEVACOR) 3-07 by mouth ity of 20 mg 17:04: daily. [place] [id number] Medical Branch lisinopril 2017-0 Yes 40mg Take [...] mouth ity of XL (TOPROL 11:04: daily. [place] XL) 50 mg 36 Medical [...] mouth ity of mg tablet 11:04: daily. [place] [facility] lovastatin 2017-0 Yes 20mg Take 20 mg U nivers (MEVACOR) 3-07 by mouth ity of 20 mg 11:04: daily. [place] tablet 36 Medical Branch lisinopril [...] daily. [place] capsule 36 Medical Branch metoprolol 2017 Yes 50mg Take 50 mg U nivers succinate 3-07 by mouth ity of XL (TOPROL 11:04: daily. [place] XL) 50 mg 36 Medical 24 hr Branch tablet rOPINIRole 2017 Yes 2mg Take 2 mg Un martha (REQUIP) 2 3-07 by mouth 2 ity of mg tablet 11:04: (two) [place] 36 times Medical daily. Branch levothyroxi Yes [...] mouth ity of mg tablet 11:04: daily. [place] [address] Medical Branch lovastatin Yes 20mg Take 20 mg U nivers (MEVACOR) 3-07 by mouth ity of 20 mg 11:04: daily. [place] tablet 36 Medical Branch spironolact spironolact No spironolac Devoted one 25 [...] PUFF BY DAY DAY MOUTH EVERY DAY Pantoprazol [...] Chloride Chloride Chloride Neeta ER Neeta ER Neeat ER Levothyroxi Levothyroxi No Levothyrox ne Sodium [...] Sodium ine Sodium Gabapentin Gabapentin No Gabapentin Nitrofurant Nitrofurant No Nitrofuran oin Monohyd oin Monohyd toin Macro Macro Monohyd Macro Lomotil Lomotil No Lomotil Kerendia 10 Kerendia 10 No 1{table QD Kerendia MG MG t} 10 MG Donepezil Donepezil No 1{table QD Donepezil HCl 10 MG HCl 10 MG t} HCl 10 MG Primidone Primidone No Primidone Vitamin D3 Vitamin D3 No Vitamin D3 10 MCG (400 10 MCG (400 10 MCG UNIT) UNIT) (400 UNIT) Diclofenac Diclofenac No Diclofenac Sodium 1 % Sodium 1 % Sodium 1 % amLODIPine amLODIPine No 1{table QD amLODIPine Besylate 5 Besylate 5 t} Besylate 5 MG MG MG Lisinopril Lisinopril No Lisinopril Ferrous Ferrous No Ferrous Sulfate Sulfate Sulfate NIFEdipine NIFEdipine No 1{table QD NIFEdipine ER 30 MG ER 30 MG t_on_an ER 30 MG _empty_ stomach } Lisinopril Lisinopril No 1{table QD Lisinopril 40 MG 40 MG t} 40 MG Potassium Potassium No Potassium Chloride ER Chloride ER Chloride ER Omeprazole Omeprazole No QD Omeprazole 40 MG 40 MG 40 MG Spironolact Spironolact No Spironolac one one tone Advair Advair No Advair Devoted Diskus 250 Diskus 250 Diskus 250 Medical mcg-50 mcg-50 mcg-50 Group mcg/dose mcg/dose mcg/dose powder for powder for powder for inhalation inhalation inhalation INHALE 1 INHALE 1 INHALE 1 PUFF BY PUFF BY PUFF BY MOUTH TWICE MOUTH TWICE MOUTH DAILY DAILY TWICE DAILY buPROPion buPROPion No buPROPion HCl ER (XL) HCl ER (XL) HCl ER (XL) Ketoconazol Ketoconazol No Ketoconazo e e le Lovastatin Lovastatin No QD Lovastatin 20 MG 20 MG 20 MG Potassium Potassium No Potassium Chloride Chloride Chloride Neeta ER Neeta ER Neeta ER Metoprolol Metoprolol No Metoprolol Succinate Succinate Succinate Fluocinonid Fluocinonid No Fluocinoni e e de traMADol traMADol No traMADol HCl HCl HCl Diclofenac Diclofenac No Diclofenac Sodium 1 % Sodium 1 % Sodium 1 % Pantoprazol Pantoprazol No 1{table QD Pantoprazo e Sodium 40 e Sodium 40 t} le Sodium MG MG 40 MG Trelegy Trelegy No Trelegy Ellipta Ellipta Ellipta albuterol albuterol No albuterol Devoted sulfate HFA sulfate HFA sulfate Medical 90 90 HFA 90 Group mcg/actuati mcg/actuati mcg/actuat on aerosol on aerosol ion inhaler inhaler aerosol INHALE 2 INHALE 2 inhaler PUFFS BY PUFFS BY INHALE 2 MOUTH EVERY MOUTH EVERY PUFFS BY 6 HOURS 6 HOURS MOUTH EVERY 6 HOURS Gabapentin Gabapentin No Gabapentin Pantoprazol Pantoprazol No Pantoprazo e Sodium e Sodium le Sodium Escitalopra Escitalopra No 1{table QD Escitalopr m Oxalate m Oxalate t} am Oxalate 20 MG 20 MG 20 MG Acetaminoph Acetaminoph No Acetaminop en-Codeine en-Codeine hen-Codein #3 #3 e #3 Clindamycin Clindamycin No Clindamyci HCl HCl n HCl Cephalexin Cephalexin No Cephalexin Carvedilol Carvedilol No 1{table BID Carvedilol 25 MG 25 MG t_with_ 25 MG food} Flublok Flublok No Flublok Quadrivalen Quadrivalen Quadrivale t t nt Mupirocin Mupirocin No Mupirocin Calcium Calcium Calcium Gabapentin Gabapentin No Gabapentin amlodipine amlodipine No amlodipine Devoted 10 mg 10 mg 10 mg Medical tablet TAKE tablet TAKE tablet Group 1 TABLET BY 1 TABLET BY TAKE 1 MOUTH EVERY MOUTH EVERY TABLET BY DAY DAY MOUTH EVERY DAY Famotidine Famotidine No Famotidine Albuterol Albuterol No Albuterol Sulfate HFA Sulfate HFA Sulfate HFA Halobetasol Halobetasol No Halobetaso Cr & Lactic Cr & Lactic l Cr & Ac Cr Ac Cr Lactic Ac Cr Lovastatin Lovastatin No QD Lovastatin 20 MG 20 MG 20 MG Albuterol Albuterol No Albuterol Sulfate HFA Sulfate HFA Sulfate HFA Acetaminoph Acetaminoph No Acetaminop en-Codeine en-Codeine hen-Codein #3 #3 e #3 rOPINIRole rOPINIRole No 1{table BID rOPINIRole HCl 2 MG HCl 2 MG t} HCl 2 MG Diclofenac Diclofenac No Diclofenac Sodium 1 % Sodium 1 % Sodium 1 % Furosemide Furosemide No Furosemide Sulfamethox Sulfamethox No Sulfametho azole-Trime azole-Trime xazole-Tri [...] Chlorhexid ne ne ine Gluconate Gluconate Gluconate Ciprofloxac Ciprofloxac No Ciprofloxa in HCl in HCl nataliya HCl Ciprofloxac Ciprofloxac No Ciprofloxa in HCl in HCl nataliya HCl Clindamycin Clindamycin No Clindamyci HCl HCl n HCl Nitrofurant Nitrofurant No Nitrofuran oin Monohyd oin Monohyd toin Macro Macro Monohyd Macro Gabapentin Gabapentin No Gabapentin Spironolact Spironolact No Spironolac one one tone Potassium Potassium No Potassium Chloride ER Chloride ER Chloride ER Mupirocin Mupirocin No Mupirocin Calcium Calcium Calcium Breo Breo No Breo Devoted Ellipta 200 Ellipta 200 Ellipta Medical mcg-25 mcg-25 200 mcg-25 Group mcg/dose mcg/dose mcg/dose powder for powder for powder for inhalation inhalation inhalation TAKE 1 PUFF TAKE 1 PUFF TAKE 1 BY MOUTH BY MOUTH PUFF BY EVERY DAY EVERY DAY MOUTH EVERY DAY Pantoprazol Pantoprazol No [...] Sodium 1 % Lomotil Lomotil No Lomotil bupropion bupropion No bupropion Devoted HCl XL [...] Levothyrox ne Sodium ne Sodium ine Sodium carvedilol carvedilol No carvedilol Devoted 6.25 mg 6.25 mg 6.25 mg Medica l tablet TAKE tablet TAKE tablet Group 1 TABLET BY 1 TABLET BY TAKE 1 MOUTH TWICE MOUTH TWICE TABLET BY A DAY A DAY MOUTH TWICE A DAY Donepezil Donepezil No 1{table QD Donepezil [...] Clindamycin No Clindamyci HCl HCl n HCl donepezil donepezil No donepezil Devoted 10 mg 10 mg 10 mg Medical tablet TAKE tablet TAKE tablet Group 1 TABLET BY 1 TABLET BY TAKE 1 MOUTH EVERY MOUTH EVERY TABLET BY DAY DAY MOUTH EVERY DAY Nitrofurant Nitrofurant No Nitrofuran oin Monohyd oin Monohyd toin Macro Macro Monohyd Macro Gabapentin Gabapentin No Gabapentin Spironolact Spironolact No Spironolac one one tone Potassium Potassium No Potassium Chloride ER Chloride ER Chloride ER Mupirocin Mupirocin No Mupirocin Calcium Calcium Calcium escitalopra escitalopra No escitalopr Devoted m 20 mg m 20 mg am 20 mg Medic al tablet TAKE tablet TAKE tablet Group 1 TABLET BY 1 TABLET BY TAKE 1 MOUTH TWICE MOUTH TWICE TABLET BY A DAY A DAY MOUTH TWICE A DAY famotidine famotidine No famotidine Devoted 20 mg 20 mg 20 mg Medical tablet TAKE tablet TAKE tablet Group 1 TABLET BY 1 TABLET BY TAKE 1 MOUTH EVERY MOUTH EVERY TABLET BY DAY DAY MOUTH EVERY DAY gabapentin gabapentin No gabapentin Devoted 300 mg 300 mg 300 mg Medical capsule capsule capsule Group TAKE 1 TAKE 1 TAKE 1 CAPSULE BY CAPSULE BY CAPSULE BY MOUTH TWICE MOUTH TWICE MOUTH A DAY A DAY TWICE A DAY ipratropium ipratropium No ipratropiu Devoted bromide 21 bromide 21 m bromide Medical mcg (0.03 mcg (0.03 21 mcg Anand up %) nasal %) nasal (0.03 %) spray USE spray USE nasal SPRAY UP TO SPRAY UP TO spray USE 4 TIMES 4 TIMES SPRAY UP DAILY DAILY TO 4 TIMES DAILY levothyroxi levothyroxi No levothyrox Devoted ne 125 mcg ne 125 mcg ine 125 Medical tablet TAKE tablet TAKE mcg tablet Group 1 TABLET BY 1 TABLET BY TAKE 1 MOUTH EVERY MOUTH EVERY TABLET BY DAY DAY MOUTH EVERY DAY lisinopril lisinopril No 1 Q1D lisinopril Devoted 40 mg 40 mg 40 mg Medical tablet Take tablet Take tablet Group 1 tablet 1 tablet Take 1 every day every day tablet by oral by oral every day route. route. by oral route. lovastatin lovastatin No lovastatin Devoted 20 mg 20 mg 20 mg Medical tablet TAKE tablet TAKE tablet Group 1 TABLET BY 1 TABLET BY TAKE 1 MOUTH EVERY MOUTH EVERY TABLET BY DAY DAY MOUTH EVERY DAY metoprolol metoprolol No metoprolol Devoted succinate succinate succinate Medical 50 mg daily 50 mg daily 50 mg Group daily omeprazole omeprazole No omeprazole Devoted 40 mg 40 mg 40 mg Medical capsule,del capsule,del capsule,de Group ayed ayed layed release release release TAKE 1 TAKE 1 TAKE 1 CAPSULE BY CAPSULE BY CAPSULE BY MOUTH EVERY MOUTH EVERY MOUTH DAY DAY EVERY DAY potassium potassium No potassium Devoted chloride ER chloride ER chloride Medical 10 mEq 10 mEq ER 10 mEq Group capsule,ext capsule,ext capsule,ex ended ended tended release release release TAKE 1 TAKE 1 TAKE 1 CAPSULE BY CAPSULE BY CAPSULE BY MOUTH EVERY MOUTH EVERY MOUTH DAY DAY EVERY DAY primidone primidone No primidone Devoted 50 mg 50 mg 50 mg Medical tablet TAKE tablet TAKE tablet Group 1 TABLET BY 1 TABLET BY TAKE 1 MOUTH MOUTH TABLET BY EVERYDAY AT EVERYDAY AT MOUTH BEDTIME BEDTIME EVERYDAY AT BEDTIME ropinirole ropinirole No ropinirole Devoted 2 mg tablet 2 mg tablet 2 mg M edical TAKE 1 TAKE 1 tablet Group TABLET BY TABLET BY TAKE 1 MOUTH TWICE MOUTH TWICE TABLET BY A DAY A DAY MOUTH TWICE A DAY Vital Signs Vital Name Observation Time Observation Value Comments Source Systolic blood 2022-08-05 20:00:00 122 mm[Hg] Univer sity of pressure [facility] Diastolic blood 2022-08-05 20:00:00 77 mm[Hg] Unive rsity of pressure [facility] Heart rate 2022-08-05 20:00:00 50 /min Universi ty [facility] Respiratory rate 2022-08-05 20:00:00 18 /min [facility] Oxygen saturation in 2022-08-05 20:00:00 94 /min [facility] blood by [facility] Pulse oximetry Branch Body temperature 2022-08-05 17:24:00 36 [facility] height 2022-08-05 17:24:00 149.9 cm Universi ty [facility] Body weight 2022-08-05 17:24:00 83.915 kg Universi ty [facility] BMI 2022-08-05 17:24:00 37.37 [facility] height 2022-07-27 13:15:00 59 [in_i] [facility] weight 2022-07-27 13:15:00 188.2 [lb_av] Common [facility] temperature 2022-07-27 13:15:00 97.6 [degF] Common [facility] bmi 2022-07-27 13:15:00 38.01 kg/m2 [facility] blood pressure 2022-07-27 13:15:00 125 mm[Hg] [facility] blood pressure 2022-07-27 13:15:00 82 mm[Hg] [facility] height 2022-06-15 13:30:00 59 [in_i] Common [facility] weight 2022-06-15 13:30:00 193 [lb_av] Common [facility] temperature 2022-06-15 13:30:00 98.1 [degF] Common [facility] bmi 2022-06-15 13:30:00 38.98 kg/m2 [facility] blood pressure 2022-06-15 13:30:00 128 mm[Hg] [facility] blood pressure 2022-06-15 13:30:00 76 mm[Hg] [facility] height 2021-10-17 14:30:00 59 [in_i] [facility] weight 2021-10-17 14:30:00 220 [lb_av] [facility] temperature 2021-10-17 14:30:00 97.9 [degF] Common [facility] - [facility] bmi 2021-10-17 14:30:00 44.43 kg/m2 [facility] blood pressure 2021-10-17 14:30:00 126 mm[Hg] [facility] blood pressure 2021-10-17 14:30:00 74 mm[Hg] [facility] Systolic blood 2020-06-28 19:30:00 180 mm[Hg] Univer sity of [facility] Diastolic blood 2020-06-28 19:30:00 82 mm[Hg] Unive rsity of [facility] Heart rate 2020-06-28 19:30:00 61 /min Universi ty of [facility] Respiratory rate 2020-06-28 19:13:00 17 /min [facility] saturation in 2020-06-28 19:13:00 96 /min [facility] Arterial blood by [facility] Pulse oximetry Branch Body temperature 2020-06-28 16:54:00 36.33 Tracee [facility] Body weight 2020-06-28 16:54:00 95.255 kg Universi ty of [facility] BMI 2020-06-28 16:54:00 42.41 kg/m2 Universi ty [facility] Systolic blood 2020-06-28 19:30:00 180 mm[Hg] Univer sity of [facility] Diastolic blood 2020-06-28 19:30:00 82 mm[Hg] Unive rsity of [facility] Heart rate 2020-06-28 19:30:00 61 /min Universi ty [facility] Respiratory rate 2020-06-28 19:13:00 17 /min Univ ersity of [facility] Oxygen saturation in 2020-06-28 19:13:00 96 /min University of Arterial blood by [facility] Pulse oximetry Branch Body temperature 2020-06-28 16:54:00 36.33 Tracee Univ ersity of [place] [facility] Body weight 2020-06-28 16:54:00 95.255 kg [facility] [place] [facility] BMI 2020-06-28 16:54:00 42.41 kg/m2 [facility] [place] [facility] Systolic blood 2020-02-19 19:23:00 160 mm[Hg] Univer sity of pressure [place] [facility] Diastolic blood 2020-02-19 19:23:00 84 mm[Hg] Unive rsity of pressure [place] [facility] Heart rate 2020-02-19 19:23:00 63 /min [facility]i [facility] [place] [facility] Body temperature 2020-02-19 19:23:00 36.39 Tracee Univ ersity of [place] [facility] Respiratory rate 2020-02-19 19:23:00 15 /min Univ ersity of [place] [facility] Body height 2020-02-19 19:23:00 149.9 cm [facility] [place] [facility] Body weight 2020-02-19 19:23:00 99.791 kg [facility] [place] [facility] BMI 2020-02-19 19:23:00 44.43 kg/m2 [facility] [place] [facility] Oxygen saturation in 2020-02-19 19:23:00 96 /min University of Arterial blood by [facility] Pulse oximetry Branch Systolic blood 2020-02-19 19:23:00 160 mm[Hg] Univer sity of pressure [place] [facility] Diastolic blood 2020-02-19 19:23:00 84 mm[Hg] Unive rsity of pressure [place] [facility] Heart rate 2020-02-19 19:23:00 63 /min [facility]i [facility] [place] [facility] Body temperature 2020-02-19 19:23:00 36.39 Tracee Univ ersity of [place] [facility] Respiratory rate 2020-02-19 19:23:00 15 /min Univ ersity of [place] [facility] Body height 2020-02-19 19:23:00 149.9 cm [facility] [place] [facility] Body weight 2020-02-19 19:23:00 99.791 kg [facility] [place] [facility] BMI 2020-02-19 19:23:00 44.43 kg/m2 [facility] [place] [facility] Oxygen saturation in 2020-02-19 19:23:00 96 /min [facility] of Arterial blood by [place] [facility] Pulse oximetry Branch Systolic blood 2019-12-10 04:00:00 202 mm[Hg] Univer sity of pressure [place] [facility] Diastolic blood 2019-12-10 04:00:00 92 mm[Hg] Unive rsity of pressure [place] [facility] Heart rate 2019-12-10 04:00:00 75 /min [facility] [place] [facility] Respiratory rate 2019-12-10 04:00:00 18 /min Univ ersity of [place] [facility] Oxygen saturation in 2019-12-10 04:00:00 98 /min University of Arterial blood by [facility] Pulse oximetry Branch Body temperature 2019-12-10 02:51:13 36.39 Tracee Univ ersity of [place] [facility] Body height 2019-12-10 02:28:00 162.6 cm [facility] [place] [facility] Body weight 2019-12-10 02:28:00 104.327 kg [facility] [place] [facility] BMI 2019-12-10 02:28:00 39.48 kg/m2 [facility] [place] [facility] Systolic blood 2019-12-10 04:00:00 202 mm[Hg] Univer sity of pressure [place] [facility] Diastolic blood 2019-12-10 04:00:00 92 mm[Hg] Unive rsity of pressure [place] [facility] Heart rate 2019-12-10 04:00:00 75 /min [facility] [place] [facility] Respiratory rate 2019-12-10 04:00:00 18 /min Univ ersity of [place] [facility] Oxygen saturation in 2019-12-10 04:00:00 98 /min University of Arterial blood by [facility] Pulse oximetry Branch Body temperature 2019-12-10 02:51:13 36.39 Tracee Univ ersity of [place] [facility] Body height 2019-12-10 02:28:00 162.6 cm Universi ty [facility] [place] [facility] Body weight 2019-12-10 02:28:00 104.327 kg [facility] BMI 2019-12-10 02:28:00 39.48 kg/m2 [facility] Heart Rate 2022-11-29 19:18:58 [facility] [place] Systolic (mm Hg) 2022-11-29 19:18:48 Jose Francisco rial [place] Diastolic (mm Hg) 2022-11-29 19:18:48 [facility] Heart Rate 2022-11-29 19:18:48 [facility] Temperature Oral (F) 2022-11-29 19:18:21 98.2 F [facility] Heart Rate 2022-11-29 13:36:55 [facility] Systolic (mm Hg) 2022-11-29 13:36:27 Jose Francisco rial [facility] Diastolic (mm Hg) 2022-11-29 13:36:27 Mem orial [place] Systolic (mm Hg) 2022-11-29 13:14:00 Jose Francisco rial [place] Diastolic (mm Hg) 2022-11-29 13:14:00 [facility] [place] Respitory Rate 2022-11-29 10:05:34 [facility] [place] Temperature Oral (F) 2022-11-29 10:04:49 98.4 F [facility] Respitory Rate 2022-11-29 05:37:05 [facility] Temperature Oral (F) 2022-11-29 05:36:29 97.7 F [facility] Temperature Oral (F) 2022-11-29 02:00:00 98 F [facility] Respitory Rate 2022-11-28 20:51:03 [facility] [place] Height 2022-11-28 19:03:00 4 [ft_i] [facility] Weight 2022-11-28 19:03:00 [facility] [place] Height 2022-11-27 14:13:00 149.86 cm [facility] Weight 2022-11-27 14:13:00 [facility] BMI Calculated 2022-11-27 14:13:00 [facility] Height 2022-11-27 05:50:00 149.86 cm [facility] BMI Calculated 2022-11-27 05:50:00 [facility] [place] Weight 2022-11-27 05:50:00 [facility] Systolic (mm Hg) 2022-11-23 01:23:00 Jose Francisco rial [facility] Diastolic (mm Hg) 2022-11-23 01:23:00 [facility] Respitory Rate 2022-11-23 01:23:00 [facility] [place] Respitory Rate 2022-11-22 22:30:00 [facility] Systolic (mm Hg) 2022-11-22 22:30:00 Jose Francisco rial [place] Diastolic (mm Hg) 2022-11-22 22:30:00 Mem o[facility] [place] Respitory Rate 2022-11-22 21:30:00 [facility] [place] Systolic (mm Hg) 2022-11-22 21:30:00 Jose Francisco rial [place] Diastolic (mm Hg) 2022-11-22 21:30:00 [facility] Temperature Oral (F) 2022-11-22 02:00:00 98.2 F [facility] Temperature Oral (F) 2022-11-21 22:54:00 97.7 F [facility] Temperature Oral (F) 2022-11-21 16:07:00 98.2 F [facility] Height 2022-11-21 10:11:00 149.86 cm [facility] BMI Calculated 2022-11-21 10:11:00 [facility] [place] Weight 2022-11-21 10:11:00 [facility] Heart Rate 2022-11-21 10:11:00 [facility] [place] Systolic (mm Hg) 2021-11-02 20:14:00 Jose Francisco rial [place] Diastolic (mm Hg) 2021-11-02 20:14:00 [facility] Heart Rate 2021-11-02 20:14:00 [facility] Respitory Rate 2021-11-02 20:14:00 [facility] [place] Height 2021-11-02 20:14:00 149.86 cm [facility] Weight 2021-11-02 20:14:00 [facility] BMI Calculated 2021-11-02 20:14:00 [facility] [place] Systolic (mm Hg) 2020-12-24 18:59:00 Jose Francisco rial [facility] Diastolic (mm Hg) 2020-12-24 18:59:00 [facility] Heart Rate 2020-12-24 18:59:00 [facility] Respitory Rate 2020-12-24 18:59:00 [facility] [place] Height 2020-12-24 18:59:00 149.86 cm [facility] Weight 2020-12-24 18:59:00 [facility] BMI Calculated 2020-12-24 18:59:00 [facility] [place] Systolic (mm Hg) 2020-09-06 20:47:00 Jose Francisco rial [place] Diastolic (mm Hg) 2020-09-06 20:47:00 [facility] Temperature Oral (F) 2020-09-06 18:26:00 99.7 F [facility] Heart Rate 2020-09-06 18:26:00 [facility] Respitory Rate 2020-09-06 18:26:00 [facility] [place] Systolic (mm Hg) 2020-09-06 18:26:00 Jose Francisco rial [place] Diastolic (mm Hg) 2020-09-06 18:26:00 [facility] Temperature Oral (F) 2020-09-06 14:09:00 98.1 F [facility] Heart Rate 2020-09-06 14:09:00 [facility] Respitory Rate 2020-09-06 14:09:00 [facility] [place] Systolic (mm Hg) 2020-09-06 14:09:00 Jose Francisco rial [place] Diastolic (mm Hg) 2020-09-06 14:09:00 [facility] Temperature Oral (F) 2020-09-06 10:00:00 98.1 F [facility] Heart Rate 2020-09-06 10:00:00 [facility] Respitory Rate 2020-09-06 10:00:00 [facility] [place] Temperature Oral (F) 2020-09-06 06:30:00 97.5 F [facility] Heart Rate 2020-09-06 06:30:00 [facility] [place] Respitory Rate 2020-09-06 06:30:00 [facility] Systolic (mm Hg) 2020-09-06 06:30:00 Jose Francisco rial [place] Diastolic (mm Hg) 2020-09-06 06:30:00 [facility] Temperature Oral (F) 2020-09-06 02:45:00 97.8 F [facility] Heart Rate 2020-09-06 02:45:00 [facility] Respitory Rate 2020-09-06 02:45:00 [facility] Systolic (mm Hg) 2020-09-06 02:45:00 Jose Francisco rial [place] Diastolic (mm Hg) 2020-09-06 02:45:00 [facility] Temperature Oral (F) 2020-09-05 22:00:00 97 F [facility] Heart Rate 2020-09-05 22:00:00 [facility] Respitory Rate 2020-09-05 22:00:00 [facility] [place] Systolic (mm Hg) 2020-09-05 22:00:00 Jose Francisco rial [place] Diastolic (mm Hg) 2020-09-05 22:00:00 [facility] Height 2020-09-05 02:46:00 124.46 cm [facility] BMI Calculated 2020-09-05 02:46:00 [facility] [place] Weight 2020-09-05 02:46:00 [facility] [place] Systolic (mm Hg) 2020-05-25 18:41:00 Jose Francisco rial [facility] Diastolic (mm Hg) 2020-05-25 18:41:00 Mem [facility] [place] Heart Rate 2020-05-25 18:41:00 [facility] [place] Respitory Rate 2020-05-25 18:41:00 [facility] Temperature Oral (F) 2020-05-25 18:41:00 98.6 F [facility] Height 2020-05-25 18:41:00 149.86 cm [facility] Weight 2020-05-25 18:41:00 [facility] BMI Calculated 2020-05-25 18:41:00 [facility] [place] Systolic (mm Hg) 2020-03-24 14:12:00 Jose Francisco rial [place] Diastolic (mm Hg) 2020-03-24 14:12:00 [facility] Heart Rate 2020-03-24 14:12:00 [facility] Height 2020-03-24 14:12:00 149.86 cm [facility] Weight 2020-03-24 14:12:00 [facility] BMI Calculated 2020-03-24 14:12:00 [facility] Systolic (mm Hg) 2019-07-24 19:29:00 Jose Francisco rial [facility] Diastolic (mm Hg) 2019-07-24 19:29:00 [facility] Heart Rate 2019-07-24 19:29:00 [facility] Respitory Rate 2019-07-24 19:29:00 [facility] Height 2019-07-24 19:29:00 149.86 cm [facility] Weight 2019-07-24 19:29:00 [facility] BMI Calculated 2019-07-24 19:29:00 [facility] Systolic (mm Hg) 2019-05-21 19:25:00 Jose Francisco rial [place] Diastolic (mm Hg) 2019-05-21 19:25:00 [facility] [place] Heart Rate 2019-05-21 19:25:00 [facility] [place] Respitory Rate 2019-05-21 19:25:00 [facility] Height 2019-05-21 19:25:00 149.86 cm [facility] Weight 2019-05-21 19:25:00 [facility] BMI Calculated 2019-05-21 19:25:00 [facility] [place] Height 2019-03-21 19:45:00 147.32 cm [facility] Weight 2019-03-21 19:45:00 [facility] BMI Calculated 2019-03-21 19:45:00 [facility] [place] Respitory Rate 2019-03-21 19:45:00 [facility] [place] Heart Rate 2019-03-21 19:45:00 [facility] [place] Systolic (mm Hg) 2019-03-21 19:45:00 Jose Francisco rial [facility] Diastolic (mm Hg) 2019-03-21 19:45:00 [facility] Height 2019-02-21 20:01:00 149.86 cm [facility] Weight 2019-02-21 20:01:00 [facility] BMI Calculated 2019-02-21 20:01:00 [facility] [place] Respitory Rate 2019-02-21 20:01:00 [facility] Heart Rate 2019-02-21 20:01:00 [facility] Systolic (mm Hg) 2019-02-21 20:01:00 Jose Francisco rial [facility] Diastolic (mm Hg) 2019-02-21 20:01:00 [facility] Procedures Procedure Date / Time Performing Clinician Source Performed AUTHORIZATION FOR 2022-11-22 06:01:00 Doctor Unassigned, No Univ [facility] RELEASE OF PHI Name Medical Branch XR CHEST 1 VW 2022-08-05 17:51:10 Carly Sinclair [facility] TROPONIN I 2022-08-05 17:31:00 Carly Sinclair [facility] COMP. METABOLIC PANEL 2022-08-05 17:31:00 Carly Sinclair [facility] ([id number]) [facility] Branch CBC WITH DIFF 2022-08-05 17:31:00 Carly Sinclair [facility] RAPID INFLUENZA A/B 2022-08-05 17:31:00 Carly Sinclair [facility] N-TERMINAL PRO-BNP 2022-08-05 17:31:00 Carly Sinclair [facility] COVID-19 (ID NOW RAPID 2022-08-05 17:31:00 [facility] 2022-08-05 17:11:04 Doctor Unassigned, No [facility]REAT[facility] Name [facility] XR FOREARM 2 VW RIGHT 2020-06-28 17:49:01 Sariah Miller [facility] XR SHOULDER 2+ VW RIGHT 2020-06-28 17:49:01 Sariah Miller [facility] CONSENT/REFUSAL FOR 2020-02-19 18:58:01 Doctor Unassigned, [facility] Name [facility] XR TIBIA FIBULA 2 VW 2019-12-10 03:20:47 Timi Aguirre [facility] Encounters Start End Encounter Admission Attending Care Care Encounter Source Date/Time Date/Time Type Type Clinicians Facility Department ID 2022-11-28 Outpatient [facility] [id number] [place] 08:22:57 [id number] [facility] 2022-11-23 Outpatient [facility] [id number] [place] 15:23:09 [id number] [facility] 2022-11-13 Outpatient STLMLC STLMLC [id number] Common 13:04:00 [id number] [facility] 2022-11-09 Outpatient STLMLC STLMLC [id number] Common 12:35:00 [id number] [facility] 2022-07-26 Outpatient STLMLC STLMLC [id number] Common 16:10:00 [facility] 2022-06-16 Outpatient STLMLC STLMLC [id number] Common 09:53:02 [id number] [facility] 2021-10-26 Outpatient STLMLC STLMLC [id number] Common 13:00:46 [id number] [facility] 2021-10-26 Outpatient STLMLC STLC [id number] Common 12:25:20 [id number] [facility] 2021-10-26 Outpatient STLMLC STLC [id number] Common 12:16:59 [id number] [facility] 2021-10-05 Inpatient KAYCEE AndersonWU ADMI [id number] [facility] 11:00:00 Anurag 64 [facility] 2021-07-29 Emergency [facility] [id number] Univers 19:46:17 ity [facility] 2021-07-28 Emergency [facility] [id number] Univers 21:53:33 [facility] 2023-02-22 2023-02-22 Palliative Glenys 2.16.840. 2.16.840.1. C [id number] Devoted 17:30:00 18:30:00 Care Foster [id number] GFE Medical Follow Up [id number] 2023-02-14 2023-02-14 Inpatient NIC Sanderson HCAWU SUGL [id number] [facility] 11:30:00 11:30:00 Anurag 68 [facility] 2023-02-08 2023-02-08 Outpatient Deavers_C [facility] [id number] Devoted 00:00:00 00:00:00 0511 Medica l Group 2023-01-31 2023-01-31 ESTRELLA Cuellar 2.16.840. 2.16.840.1. CLA [id number] [facility] 19:00:00 20:00:00 Deavers [id number]. [id number]. WF9 Medical [id number] 2023-01-22 2023-01-22 Outpatient Deavers_C DMG [facility] [id number] Devoted 00:00:00 00:00:00 0424 Medica l Group 2023-01-22 2023-01-22 Outpatient Deavers_C DMG [facility] [id number] Devoted 00:00:00 00:00:00 0506 Medica l Group 2022-11-27 2022-11-29 Inpatient [facility] [id number] Memoria 05:48:00 21:37:[address] 2022-11-27 2022-11-29 Inpatient [facility] [id number] Memoria 05:48:00 21:37:[address] 2022-11-28 2022-11-29 Inpatient E AGUSTIN [facility] [id number] [facility] 15:38:00 15:37:00 [facility] 2022-11-26 2022-11-29 Outpatient Agustin [facility] [id number] 23:48:00 15:37:00 [place] [id number] 2022-11-26 2022-11-29 Outpatient Agustin [facility] [id number] 23:48:00 15:37:00 [place] [id number] 2022-11-21 2022-11-22 Observatio [facility] [id number] Memoria 10:09:00 20:23:[address] 2022-11-21 2022-11-22 Observatio [facility] [id number] Memoria 10:09:00 20:23:[address] 2022-11-21 2022-11-22 Outpatient E CESILIA [facility] [id number] [facility] 08:46:00 14:23:00 PEREZ 2022-11-21 2022-11-22 Outpatient Cesilia [facility] [id number] 04:09:00 14:23:00 Perez Seiji 00 2022-11-21 2022-11-22 Outpatient Cesilia [facility] [id number] 04:09:00 14:23:00 Perez Seiji 00 2022-11-22 2022-11-22 Orders Doctor STEFANO 1.2.840.114 [id number] Univers 00:00:00 00:00:00 Only Unassigned, TRU 350.1.13.10 [facility] [place] [facility] 4.2.7.2.686 Carlos as [id number] [place] [id number] Branch 2022-11-01 2022-11-01 (TEL) STLMLC STLMLC [id number] Co mmon 00:00:00 00:00:00 [facility] 2022-09-29 2022-09-29 Inpatient JAMIE Anderson [id number] [facility] 11:00:00 11:00:00 Anurag Gross [facility] 2022-09-13 2022-09-13 CAV Allegra 2.16.840. 2.16.840.1. CLAC [id number] [facility]oted 20:30:00 21:00:00 Revisit: Valentín [id number]. [id number]. 2H3 Medical Gap 4.6.46595 [id number] Closure & [id number] Clinical Check-in 2022-09-05 2022-09-05 (TEL) STLMLC STLMLC [id number] Co mmon 00:00:00 00:00:00 [facility] 2022-08-05 2022-08-05 Emergency [facility] [id number] Univers 12:20:00 15:34:00 CARLY dominique [facility] 2022-08-05 2022-08-05 Emergency [facility] 1.2.840.114 [id number] Univers 12:20:00 15:34:00 Carly AMIN 350.1.13.10 [facility] 4.2.7.2.686 [facility] [id number] [address] 2022-08-03 2022-08-03 Outpatient Canales_M DMG DMG [id number] Devoted 00:00:00 00:00:00 1103 Medica l Group 2022-07-27 2022-07-27 OFFICE STLMLC STLMLC [id number] Co mmon 00:00:00 00:00:00 VISIT Spirit ESTAB PT - CHI LEVEL 4 [facility] 2022-06-15 2022-06-15 OFFICE STLMLC STLMLC [id number] Co mmon 00:00:00 00:00:00 VISIT Spirit ESTAB PT - CHI LEVEL 4 [facility] 2022-06-12 2022-06-12 ESTRELLA Dinh 2.16.840. 2.16.840.1. [facility] [id number] [facility] 20:00:00 21:00:00 Valentín [id number]. [id number]. FE5 [facility] [id number] 2022-04-28 2022-04-28 Ambulatory nullFlavo MNA [id number] Memoria 19:00:00 19:00:00 Pre-Reg r Neurology 14 l [place] Raul 2022-04-28 2022-04-28 Ambulatory nullFlavo MNA [id number] Memoria 19:00:00 19:00:00 Pre-Reg r Neurology 14 l [place] 2022-04-28 2022-04-28 Outpatient PRUDENCIOIE FRANCESCO [id number] Memoria 14:00:00 14:00:00 14 l [place] 2022-04-28 2022-04-[address] [id number] 14:00:00 14:00:00 Jeffreyfrancisco Shafer 2022-04-14 2022-04-14 [place] [id number] -[id number] Devoted 07:15:00 07:15:00 0715 Medica l Group 2021-12-15 2021-12-15 (TEL) STLMLC STLMLC [id number] Co mmon 00:00:00 00:00:00 [facility] 2021-12-08 2021-12-08 (TEL) STLMLC STLMLC [id number] Co mmon 00:00:00 00:00:00 [facility] 2021-11-29 2021-11-29 OL DIG E/M STLMLC STLMLC [id number] Common 00:00:00 00:00:00 SVC 5-10 Spiri t [facility] 2021-11-21 2021-11-21 (TEL) STLMLC STLMLC [id number] Co mmon 00:00:00 00:00:00 [facility] 2021-11-02 2021-11-03 Outpatient nullFlavo MNA [id number] Memoria 19:30:00 05:59:59 r Neurology 13 l [place] 2021-11-02 2021-11-03 Outpatient nullFlavo MNA [id number] Memoria 19:30:00 05:59:59 r Neurology 13 lavelle Carter 2021-11-02 2021-11-02 Outpatient Jose, [facility] [id number] 13:30:00 23:59:59 Jeffrey 13 [place] 2021-11-02 2021-11-02 Ambulatory nullFlavo MNA [id number] Memoria 19:00:00 19:00:00 Pre-Reg r Neurology 12 l Lana Carter 2021-11-02 2021-11-02 Ambulatory nullFlavo MNA [id number] Memoria 19:00:00 19:00:00 Pre-Reg r Neurology 12 l Lana Carter 2021-11-02 2021-11-02 Outpatient MHIE MHIE [id number] Memoria 13:30:00 13:30:00 13 lavelle Carter 2021-11-02 2021-11-02 Outpatient MHIE MHIE [id number] Memoria 13:00:00 13:00:00 12 lavelle Carter 2021-11-02 2021-11-[address] [facility] [id number] 13:00:00 13:00:00 Jeffrey Ventura Shafer 2021-10-26 2021-10-26 (TEL) [facility] [id number] Co mmon 00:00:00 00:00:00 Spirit - CHI [facility] 2021-10-17 2021-10-17 OFFICE [facility] [id number] Co mmon 00:00:00 00:00:00 VISIT Spirit ESTAB PT - CHI LEVEL 4 [facility] 2021-10-03 2021-10-03 CAV Allegra 2.16.840. 2.16.840.1. CLAC [id number] [facility] 20:00:00 21:30:00 Valentín [id number]. 355245.4.6. R Medical [id number] 2021-08-29 2021-08-29 [place] [id number] -[id number] Devoted 12:42:00 12:42:00 1129 Medica l Group 2021-06-28 2021-06-28 Ambulatory nullFlavo MNA [id number] Memoria 19:00:00 19:00:00 Pre-Reg r Neurology 11 l Lana Carter 2021-06-28 2021-06-28 Ambulatory nullFlavo MNA [id number] Memoria 19:00:00 19:00:00 Pre-Reg r Neurology 11 l Lana Carter 2021-06-28 2021-06-28 Outpatient MHIE LY [id number] Memoria 14:00:00 14:00:00 11 lavelle Carter 2021-06-28 2021-06-[address] [id number] 14:00:00 14:00:00 Jeffreyfrancisco Shafer 2021-05-16 2021-05-16 Outpatient STLMLC STLMLC [id number] Common 00:00:00 00:00:00 [facility] 2021-05-10 2021-05-10 Outpatient STLMLC STLMLC [id number] Common 00:00:00 00:00:00 [facility] 2021-04-12 2021-04-12 Outpatient STLMLC STLMLC [id number] Common 00:00:00 00:00:00 [facility] 2021-03-28 2021-03-28 Outpatient Olivia-Mbayo VFP VFP [id number] Village 05:32:00 05:32:00 _A_AH [id number] Family Practic e 2021-03-28 2021-03-28 (TEL) STLMLC STLMLC [id number] Co mmon 00:00:00 00:00:00 [facility] 2021-03-07 2021-03-07 Outpatient STLMLC STLMLC [id number] Common 00:00:00 00:00:00 [facility] 2021-02-08 2021-02-08 Outpatient STLMLC STLMLC [id number] Common 00:00:00 00:00:00 [facility] 2021-01-28 2021-01-30 Outside nullFlavo MNA [id number] Memoria 14:05:24 04:59:59 Medical r Neurology 01 l Records Lana Carter 2021-01-28 2021-01-30 Outside nullFlavo MNA [id number] Memoria 14:05:24 04:59:59 Medical r Neurology 01 l Records Lana Carter 2021-01-28 2021-01-29 Outpatient MHMISCHER MHMISCHER [id number] 09:05:24 23:59:59 2021-01-18 2021-01-18 Outpatient Olivia-Mbayo VFP [facility] [address] [place] [address] 01:43:00 01:43:00 _A_AH [id number] Family Practic e 2021-01-14 2021-01-14 Outpatient Canales_M DMG [facility] [id number] Devoted 05:20:00 05:20:00 0416 Medica l Group 2021-01-14 2021-01-14 Caitlyn BAEZA MA - [id number] D evoted 00:00:00 00:00:00 Radha Foster Medica l Jerez, Health Group COMMUNICATION COORDINATOR: [id number] [facility] [address], [place] [address] , Ph. 2021-01-14 2021-01-14 Outpatient Jerez, DMG [facility] [id number] 00:00:00 00:00:00 Caitlyn [id number] Radha [id number] 2021-01-13 2021-01-13 Outpatient Canales_M DMG DMG [id number] Devoted 05:35:00 05:35:00 0415 Medica l Group 2021-01-12 2021-01-12 Outpatient Canales_M DMG DMG [id number] Devoted 04:16:00 04:16:00 0414 Medica l Group 2020-12-24 2020-12-25 Outpatient nullFlavo MNA [id number] Memoria 18:45:00 04:59:59 r Neurology 10 l Lana Cunhaann 2020-12-24 2020-12-25 Outpatient nullFlavo MNA [id number] Memoria 18:45:00 04:59:59 r Neurology 10 l Lana Carter 2020-12-24 2020-12-24 Outpatient Jose, MHMISCHER MHMISCHER [id number] 13:45:00 23:59:59 Jeffrey Shafer 2020-12-24 2020-12-24 Outpatient MHIE MHIE [id number] Memoria 13:45:00 13:45:00 10 l Raul 2020-12-09 2020-12-09 Outpatient STLMLC STLC [id number] Common 00:00:00 00:00:00 [facility] 2020-12-09 2020-12-09 Outpatient STLMLC STLMLC [id number] Common 00:00:00 00:00:00 [facility] 2020-11-30 2020-11-30 Outpatient STLMLC STLMLC [id number] Common 00:00:00 00:00:00 [facility] 2020-11-23 2020-11-25 Outside nullFlavo MNA [id number] Memoria 17:49:36 05:59:59 Medical r Neurology 00 l Records Lana Carter 2020-11-23 2020-11-25 Outside nullFlavo MNA [id number] Memoria 17:49:36 05:59:59 Medical r Neurology 00 l Records Lana Carter 2020-11-23 2020-11-24 Outpatient MHMISCHER MHMISCHER [id number] 11:49:36 23:59:59 2020-10-28 2020-10-28 Outpatient STLMLC STLC [id number] Common 00:00:00 00:00:00 [facility] 2020-10-25 2020-10-25 Outpatient STLMLC STLMLC [id number] Common 00:00:00 00:00:00 [facility] 2020-10-11 2020-10-11 Ambulatory nullFlavo MNA [id number] Memoria 21:15:00 21:15:00 Pre-Reg r Neurology 09 l Lana Carter 2020-10-11 2020-10-11 Ambulatory nullFlavo MNA [id number] Memoria 21:15:00 21:15:00 Pre-Reg r Neurology 09 l Lana [place] 2020-10-11 2020-10-11 Outpatient MHIE MHIE [id number] Memoria 15:15:00 15:15:00 09 lavelle Carter 2020-10-11 2020-10-11 Outpatient [facility]IDIA [facility] [id number] 15:15:00 15:15:00 Jeffrey 09 [place] 2020-09-29 2020-09-29 Outpatient STLMLC STLMLC [id number] Common 00:00:00 00:00:00 [facility] 2020-09-05 2020-09-06 Observatio nullFlavo [facility] [id number] Memoria 02:36:00 21:43:00 sherif Carter 40 [facility] 2020-09-05 2020-09-06 Observatio nullFlavo [facility] [id number] Memoria 02:36:00 21:43:00 sherif Carter 40 [facility] 2020-09-04 2020-09-06 Outpatient [facility] [id number] 20:36:00 15:43:00 Vincent Sage 2020-09-04 2020-09-04 Outpatient Nae [facility] [id number] 20:36:00 20:36:00 Vincent Sage 2020-08-24 2020-08-24 Ambulatory nullFlavo MNA [id number] Memoria 19:15:00 19:15:00 Pre-Reg r Neurology 08 l [facility] 2020-08-24 2020-08-24 Ambulatory nullFlavo MNA [id number] Memoria 19:15:00 19:15:00 Pre-Reg r Neurology 08 l [place] 2020-08-24 2020-08-24 Outpatient MHIE IE [id number] Memoria 13:15:00 13:15:00 08 lavelle [place] 2020-08-24 2020-08-24 Outpatient YURIDIA Garcia [facility] [id number] 13:15:00 13:15:00 Jeffrey 08 [place] 2020-06-28 2020-06-28 Emergency [facility] [id number] 11:51:00 15:02:00 Sariah Amin 350.1.13.10 Miguel [id number] [place] [id number] 2020-06-28 2020-06-28 [facility] [id number] Univers 11:51:00 15:02:00 Sariah Amin [id number] i ty of Miguel [id number] [facility] [place] [facility] [id number] [facility] 084 [place] 2020-05-25 2020-05-26 Outpatient nullFlavo MNA [id number] Memoria 18:45:00 04:59:59 r Neurology 07 l [place] 2020-05-25 2020-05-26 Outpatient nullFlavo MNA [id number] Memoria 18:45:00 04:59:59 r Neurology 07 l [place] 2020-05-25 2020-05-25 Outpatient GOSIA GarciaSCHANJEL MISCHER [id number] 13:45:00 23:59:59 Jeffrey 07 [place] 2020-05-25 2020-05-25 Outpatient [facility] IE [id number] Memoria 13:45:00 13:45:00 07 l [place] 2020-03-30 2020-03-30 Ambulatory nullFlavo MNA [id number] Memoria 20:15:00 20:15:00 Pre-Reg r Neurology 05 l [place] 2020-03-30 2020-03-30 Ambulatory nullFlavo MNA [id number] Memoria 20:15:00 20:15:00 Pre-Reg r Neurology 05 l [place] 2020-03-30 2020-03-30 Outpatient [facility] IE [id number] Memoria 15:15:00 15:15:00 05 l [place] 2020-03-30 2020-03-[address] [facility] [id number] 15:15:00 15:15:00 Jeffrey 05 [place] 2020-03-24 2020-03-25 Outpatient nullFlavo MNA [id number] Memoria 14:00:00 04:59:59 r Neurology 06 l [place] 2020-03-24 2020-03-25 Outpatient nullFlavo MNA [id number] Memoria 14:00:00 04:59:59 r Neurology 06 [place] 2020-03-24 2020-03-24 Outpatient PRUDENCIO Garcia[facility]IS[id number] 09:00:00 23:59:59 Jeffreyfrancisco Shafer 2020-03-24 2020-03-24 Outpatient IE LY [id number] [place] 09:00:00 09:00:00 06 lavelle Carter 2020-02-19 2020-02-19 Emergency [facility], [facility] [id number] 14:18:56 16:04:00 Maria Luisa Amin [id number] [place] [address] [place] [address] [id number] [facility] 2020-02-19 2020-02-19 Emergency [facility], [facility] [id number] [facility] 14:18:56 16:04:00 Maria Luisa Amin 350.1.13.[address] [facility] 4.2.7.2.[address] [place] [id number] 2019-12-11 2019-12-11 Outpatient Olivia-Mbayo [facility] [address] [place] [address] 06:48:00 06:48:00 _A_AH [id number] Family Practic e 2019-12-11 2019-12-11 Outpatient Olivia-Mbayo [facility] [address] [place] [address] 06:48:00 06:48:00 _A_AH 72020 Family Practic e 2019-12-09 2019-12-10 Emergency [facility] [id number] 21:28:34 00:05:00 Timi Amin 350.1.13.10 [place] [address] [place] [address] [id number] [facility] 2019-12-09 2019-12-10 Emergency [facility] [id number] [facility] 21:28:34 00:05:00 Timi Amin 350.1.13.10 i ty of [place] 4.2.7.2.[address] [place] [id number] 2019-12-09 2019-12-10 Emergency X [facility] [id number] [facility] 21:28:34 00:05:00 TIMI dominique [facility] 2019-11-19 2019-11-19 Outpatient Olivia-gege [facility] [id number] [facility] 07:16:00 07:16:00 _A_AH [id number] Practic jaren 2019-09-16 2019-09-16 Ambulatory nullFlavo MNA [id number] [place] 21:00:00 21:00:00 Pre-Reg r Neurology 04 l Lana Carter 2019-09-16 2019-09-16 Ambulatory nullFlavo MNA [id number] [place] 21:00:00 21:00:00 Pre-Reg r Neurology 04 l Lana Carter 2019-09-16 2019-09-16 Outpatient MHIE MHIE [id number] [place] 15:00:00 15:00:00 04 lavelle Raul 2019-09-16 2019-09-16 Outpatient PRUDENCIO GarciaMISCHER MHMISCHER [id number] 15:00:00 15:00:00 Jeffrey Sonia Shafer 2019-07-24 2019-07-25 Outpatient nullFlavo MNA [id number] [place] 19:15:00 04:59:59 r Neurology 03 lavelle Carter 2019-07-24 2019-07-25 Outpatient nullFlavo MNA [id number] [facility] 19:15:00 04:59:59 r Neurology 03 lavelle [place] 2019-07-24 2019-07-24 Outpatient GOSIA GarciaSCHER MHMISCHER [id number] 14:15:00 23:59:59 Jeffrey Kings Shafer 2019-07-24 2019-07-24 Outpatient MHIE MHIE [id number] [place] 14:15:00 14:15:00 03 lavelle Carter 2019-05-21 2019-05-22 Outpatient nullFlavo MNA [id number] [facility] 19:30:00 04:59:59 r Neurology 02 lavelle Schwartz Raul 2019-05-21 2019-05-22 Outpatient nullFlavo MNA [id number] [facility] 19:30:00 04:59:59 r Neurology 02 lavelle Schwartz Raul 2019-05-21 2019-05-21 Outpatient PRUDENCIO GarciaMISCHER MHMISCHER [id number] 14:30:00 23:59:59 Jeffrey 02 [place] 2019-05-21 2019-05-21 Outpatient MHIE MHIE [id number] [place] 14:30:00 14:30:00 02 lavelle [place] 2019-03-21 2019-03-22 Outpatient nullFlavo MNA [id number] [facility] 19:30:00 04:59:59 r Neurology 01 l [place] 2019-03-21 2019-03-22 Outpatient nullFlavo MNA [id number] [facility] 19:30:00 04:59:59 r Neurology 01 [place] 2019-03-21 2019-03-21 [facility] [id number] 14:30:00 23:59:59 Jeffrey Hollis 2019-03-21 2019-03-21 Outpatient MHIE IE [id number] [place] 14:30:00 14:30:00 01 lavelle [place] 2019-02-21 2019-02-22 Outpatient nullFlavo MNA [id number] [place] 20:00:00 04:59:59 r Neurology 00 l [facility] 2019-02-21 2019-02-22 Outpatient nullFlavo MNA [id number] [place] 20:00:00 04:59:59 r Neurology 00 l [facility] 2019-02-21 2019-02-21 Outpatient Jose [facility] [id number] 15:00:00 23:59:59 Jeffrey 00 [place] Results Test Description Test Time Test Comments Results Result Comments Source CHEMISTRY 2022-11-28 09:49:00 Test Item Value Reference Range Interpretation Comme nts AGAP (test code = AGAP) 5.1 10.0-20.0 [facility] HospitalYrmkcqsZTYDJOBGO1985-85-42 09:49:00 Test Item Value Reference Range Interpretation Comments eGFR (test code = eGFR) 19 [facility] HospitalZtfettjLQVMGEDUXJ1447-18-26 09:49:00 Test Item Value Reference Range Interpretation Comments Segs (test code = Segs) 49.2 45.0-75.0 [facility] HospitalJirgwqoQWYLQBSXHH4480-09-89 09:49:00 Test Item Value Reference Range Interpretation Comments Lymphocytes (test code = Lymphocytes) 33.0 20.0-40.0 [facility]jl[facility]nNFEJEZSHHJ2641-00-93 09:49:00 Test Item Value Reference Range Interpretation Comments Monocytes (test code = Monocytes) 10.5 2.0-12.0 [facility] HospitalJlxfwyjDHKLINOWWS1630-91-50 09:49:00 Test Item Value Reference Range Interpretation Comments Eosinophils (test code = 6.6 See_Comment [A utomated message] The Eosinophils) system which ge nerated this result tra nsmitted reference range : <=4.0. The reference r christiano was not used to int erpret this result as normal/abnormal . [place] 884133-02-28 09:49:00 Test Item Value Reference Range Interpretation Comments Basophils (test code = 0.7 See_Comment [Aut omated message] The Basophils) system which ge nerated this result tra nsmitted reference range : <=1.0. The reference r christiano was not used to int erpret this result as normal/abnormal . [place] 884133-02-28 09:49:00 Test Item Value Reference Range Interpretation Comments Neutrophils # (test code = Neutrophils 3.0 1.5-8.1 #) [place] 884133-02-28 09:49:00 Test Item Value Reference Range Interpretation Comments Lymphocytes # (test code = Lymphocytes 2.0 1.0-5.5 #) [place] 884133-02-28 09:49:00 Test Item Value Reference Range Interpretation Comments Monocytes # (test code 0.7 See_Comment [Aut omated message] The = Monocytes #) system which generated this result tra nsmitted reference range : <=0.8. The reference r christiano was not used to int erpret this result as normal/abnormal . [facility] CenterNwndbcnSQSWXNSRAA8371-76-91 09:49:00 Test Item Value Reference Range Interpretation Comments Eosinophils # (test code 0.4 See_Comment [A utomated message] The = Eosinophils #) system whic h generated this result tra nsmitted reference range : <=0.5. The reference r christiano was not used to int erpret this result as normal/abnormal . [place] 884133-02-28 09:49:00 Test Item Value Reference Range Interpretation Comments WBC (test code = WBC) 6.2 3.7-10.4 [place] 884133-02-28 09:49:00 Test Item Value Reference Range Interpretation Comments RBC (test code = RBC) 3.06 4.20-5.40 [place] 884133-02-28 09:49:00 Test Item Value Reference Range Interpretation Comments Hgb (test code = Hgb) 9.2 12.0-16.0 [place] [address]-02-28 09:49:00 Test Item Value Reference Range Interpretation Comments Hct (test code = Hct) 28.0 36.0-48.0 [place] 884133-02-28 09:49:00 Test Item Value Reference Range Interpretation Comments MCV (test code = MCV) 91.5 80.0-98.0 [place] [address]-02-28 09:49:00 Test Item Value Reference Range Interpretation Comments MCH (test code = MCH) 30.0 pg 27.0-31.0 [place] 884133-02-28 09:49:00 Test Item Value Reference Range Interpretation Comments MCHC (test code = MCHC) 32.7 32.0-36.0 [place] 884133-02-28 09:49:00 Test Item Value Reference Range Interpretation Comments RDW (test code = RDW) 14.1 11.5-14.5 [place] 884133-02-28 09:49:00 Test Item Value Reference Range Interpretation Comments Platelet (test code = Platelet) 136 133-450 [facility] CenterOghijkeTOSHIHICPH1133-94-57 09:49:00 Test Item Value Reference Range Interpretation Comments MPV (test code = MPV) 7.7 7.4-10.4 [place] [address]-02-28 09:49:00 Test Item Value Reference Range Interpretation Comments Segs (test code = Segs) 49.2 45.0-75.0 [place] 884133-02-28 09:49:00 Test Item Value Reference Range Interpretation Comments Lymphocytes (test code = Lymphocytes) 33.0 20.0-40.0 [place] [address]-02-28 09:49:00 Test Item Value Reference Range Interpretation Comments Monocytes (test code = Monocytes) 10.5 2.0-12.0 [place] [address]-02-28 09:49:00 Test Item Value Reference Range Interpretation Comments Eosinophils (test code = 6.6 See_Comment [A utomated message] The Eosinophils) system which ge nerated this result tra nsmitted reference range : <=4.0. The reference r christiano was not used to int erpret this result as normal/abnormal . [facility] CenterQuxcckyZVVTAUBBOI9939-31-99 09:49:00 Test Item Value Reference Range Interpretation Comments Basophils (test code = 0.7 See_Comment [Aut omated message] The Basophils) system which ge nerated this result tra nsmitted reference range : <=1.0. The reference r christiano was not used to int erpret this result as normal/abnormal . [facility] CenterCgtihzoUXXDGCILNH3382-32-66 09:49:00 Test Item Value Reference Range Interpretation Comments Neutrophils # (test code = Neutrophils 3.0 1.5-8.1 #) [facility] CenterFqsjqwuYBVPOPNMFL1200-48-48 09:49:00 Test Item Value Reference Range Interpretation Comments Lymphocytes # (test code = Lymphocytes 2.0 1.0-5.5 #) [facility] CenterTfzxdftXEDPQYVUGF6835-13-82 09:49:00 Test Item Value Reference Range Interpretation Comments Monocytes # (test code 0.7 See_Comment [Aut omated message] The = Monocytes #) system which generated this result tra nsmitted reference range : <=0.8. The reference r christiano was not used to int erpret this result as normal/abnormal . [facility] CenterJjvejouGXULBNJVJM8134-99-77 09:49:00 Test Item Value Reference Range Interpretation Comments Eosinophils # (test code 0.4 See_Comment [A utomated message] The = Eosinophils #) system whic h generated this result tra nsmitted reference range : <=0.5. The reference r christiano was not used to int erpret this result as normal/abnormal . [facility] CenterPuzjohcTWWQLXPYSU5188-60-72 09:49:00 Test Item Value Reference Range Interpretation Comments WBC (test code = WBC) 6.2 3.7-10.4 [place] 884133-02-28 09:49:00 Test Item Value Reference Range Interpretation Comments RBC (test code = RBC) 3.06 4.20-5.40 [place] 884133-02-28 09:49:00 Test Item Value Reference Range Interpretation Comments Hgb (test code = Hgb) 9.2 12.0-16.0 [facility] CenterCsyszgoPLCIPLDPNX0056-63-51 09:49:00 Test Item Value Reference Range Interpretation Comments Hct (test code = Hct) 28.0 36.0-48.0 [place] [address]-02-28 09:49:00 Test Item Value Reference Range Interpretation Comments MCV (test code = MCV) 91.5 80.0-98.0 [place] [address]-02-28 09:49:00 Test Item Value Reference Range Interpretation Comments MCH (test code = MCH) 30.0 pg 27.0-31.0 [place] [address]-02-28 09:49:00 Test Item Value Reference Range Interpretation Comments MCHC (test code = MCHC) 32.7 32.0-36.0 [place] [address]-02-28 09:49:00 Test Item Value Reference Range Interpretation Comments RDW (test code = RDW) 14.1 11.5-14.5 [place] [address]-02-28 09:49:00 Test Item Value Reference Range Interpretation Comments Platelet (test code = Platelet) 136 133-450 [place] [address]-02-28 09:49:00 Test Item Value Reference Range Interpretation Comments MPV (test code = MPV) 7.7 7.4-10.4 [place] 608593-02-28 09:49:00 Test Item Value Reference Range Interpretation Comments Glucose Lvl (test code = Glucose Lvl) 93 70-99 [place] 608593-02-28 09:49:00 Test Item Value Reference Range Interpretation Comments BUN (test code = BUN) 30 7-22 [place] 608593-02-28 09:49:00 Test Item Value Reference Range Interpretation Comments Creatinine Lvl (test code = Creatinine 2.50 0.50-1.40 Lvl) [place] 608593-02-28 09:49:00 Test Item Value Reference Range Interpretation Comments Sodium Lvl (test code = Sodium Lvl) 138 135-145 [place] 608593-02-28 09:49:00 Test Item Value Reference Range Interpretation Comments Potassium Lvl (test code = Potassium 5.1 3.5-5.1 Lvl) [place] 608593-02-28 09:49:00 Test Item Value Reference Range Interpretation Comments Chloride Lvl (test code = Chloride Lvl) 108 95-109 [place] 608593-02-28 09:49:00 Test Item Value Reference Range Interpretation Comments CO2 (test code = CO2) 30 -32 [facility]2023-02-28 09:49:00 Test Item Value Reference Range Interpretation Comments Calcium Lvl (test code = Calcium Lvl) 8.0 8.5-10.5 [facility]2023-02-28 09:49:00 Test Item Value Reference Range Interpretation Comments AGAP (test code = AGAP) 5.1 10.0-20.0 [facility]2023-02-28 09:49:00 Test Item Value Reference Range Interpretation Comments eGFR (test code = eGFR) 19 [place] 809593-02-28 09:49:00 Test Item Value Reference Range Interpretation Comments Glucose Lvl (test code = Glucose Lvl) 93 70-99 [place] 809593-02-28 09:49:00 Test Item Value Reference Range Interpretation Comments BUN (test code = BUN) 30 - [place] 809593-02-28 09:49:00 Test Item Value Reference Range Interpretation Comments Creatinine Lvl (test code = Creatinine 2.50 0.50-1.40 Lvl) [place] 809593-02-28 09:49:00 Test Item Value Reference Range Interpretation Comments Sodium Lvl (test code = Sodium Lvl) 138 135-145 [facility] CenterMrxuclvFUCMIPDAD1532-51-90 09:49:00 Test Item Value Reference Range Interpretation Comments Potassium Lvl (test code = Potassium 5.1 3.5-5.1 Lvl) [facility] CenterYenmpudWETMZEXAS4154-66-37 09:49:00 Test Item Value Reference Range Interpretation Comments Chloride Lvl (test code = Chloride Lvl) 108 95-109 [place] 809593-02-28 09:49:00 Test Item Value Reference Range Interpretation Comments CO2 (test code = CO2) 30 24-32 [place] 809593-02-28 09:49:00 Test Item Value Reference Range Interpretation Comments Calcium Lvl (test code = Calcium Lvl) 8.0 8.5-10.5 [place] 809593-02-28 09:49:00 Test Item Value Reference Range Interpretation Comments AGAP (test code = AGAP) 5.1 10.0-20.0 [place] 809593-02-28 09:49:00 Test Item Value Reference Range Interpretation Comments eGFR (test code = eGFR) 19 [facility] CenterDnpfqeoOHNJUKZNSV7571-15-98 09:49:00 Test Item Value Reference Range Interpretation Comments Segs (test code = Segs) 49.2 45.0-75.0 [facility] CenterXmdqsezQTVPODIIRS6997-64-34 09:49:00 Test Item Value Reference Range Interpretation Comments Lymphocytes (test code = Lymphocytes) 33.0 20.0-40.0 [place] 884133-02-28 09:49:00 Test Item Value Reference Range Interpretation Comments Monocytes (test code = Monocytes) 10.5 2.0-12.0 [place] [address]-02-28 09:49:00 Test Item Value Reference Range Interpretation Comments Eosinophils (test code = 6.6 See_Comment [A utomated message] The Eosinophils) system which ge nerated this result tra nsmitted reference range : <=4.0. The reference r christiano was not used to int erpret this result as normal/abnormal . [facility] CenterFdsxevnEXDIETOEMM1141-12-36 09:49:00 Test Item Value Reference Range Interpretation Comments Basophils (test code = 0.7 See_Comment [Aut omated message] The Basophils) system which ge nerated this result tra nsmitted reference range : <=1.0. The reference r christiano was not used to int erpret this result as normal/abnormal . [facility] CenterBdhhbcmBFFSHBARLW0156-79-78 09:49:00 Test Item Value Reference Range Interpretation Comments Neutrophils # (test code = Neutrophils 3.0 1.5-8.1 #) [place] 884133-02-28 09:49:00 Test Item Value Reference Range Interpretation Comments Lymphocytes # (test code = Lymphocytes 2.0 1.0-5.5 #) [place] 884133-02-28 09:49:00 Test Item Value Reference Range Interpretation Comments Monocytes # (test code 0.7 See_Comment [Aut omated message] The = Monocytes #) system which generated this result tra nsmitted reference range : <=0.8. The reference r christiano was not used to int erpret this result as normal/abnormal . [place] 884133-02-28 09:49:00 Test Item Value Reference Range Interpretation Comments Eosinophils # (test code 0.4 See_Comment [A utomated message] The = Eosinophils #) system whic h generated this result tra nsmitted reference range : <=0.5. The reference r christiano was not used to int erpret this result as normal/abnormal . [facility] CenterNbxtoxnTXFQTFBGHC8175-82-69 09:49:00 Test Item Value Reference Range Interpretation Comments WBC (test code = WBC) 6.2 3.7-10.4 [facility] CenterKakyhciUXMARKCHVL2153-54-51 09:49:00 Test Item Value Reference Range Interpretation Comments RBC (test code = RBC) 3.06 4.20-5.40 [facility] CenterUjuhoehLSLANNNKQB8940-15-74 09:49:00 Test Item Value Reference Range Interpretation Comments Hgb (test code = Hgb) 9.2 12.0-16.0 [place] 884133-02-28 09:49:00 Test Item Value Reference Range Interpretation Comments Hct (test code = Hct) 28.0 36.0-48.0 [facility] CenterBvghovjMGKEISZRZP6814-67-49 09:49:00 Test Item Value Reference Range Interpretation Comments MCV (test code = MCV) 91.5 80.0-98.0 [facility] CenterYnqxveyJJCCCPHGME4398-57-41 09:49:00 Test Item Value Reference Range Interpretation Comments MCH (test code = MCH) 30.0 pg 27.0-31.0 [facility] CenterZvzlqnnSVOFKOSUOO9914-18-03 09:49:00 Test Item Value Reference Range Interpretation Comments MCHC (test code = MCHC) 32.7 32.0-36.0 [facility] CenterYueejvnQLWYWWEITC2647-22-05 09:49:00 Test Item Value Reference Range Interpretation Comments RDW (test code = RDW) 14.1 11.5-14.5 [place] 884133-02-28 09:49:00 Test Item Value Reference Range Interpretation Comments Platelet (test code = Platelet) 136 133-450 [facility] CenterZmnuwioIGVRUBOHSI8436-53-57 09:49:00 Test Item Value Reference Range Interpretation Comments MPV (test code = MPV) 7.7 7.4-10.4 [place] 884133-02-28 09:49:00 Test Item Value Reference Range Interpretation Comments Segs (test code = Segs) 49.2 45.0-75.0 [place] 884133-02-28 09:49:00 Test Item Value Reference Range Interpretation Comments Lymphocytes (test code = Lymphocytes) 33.0 20.0-40.0 [place] [address]-02-28 09:49:00 Test Item Value Reference Range Interpretation Comments Monocytes (test code = Monocytes) 10.5 2.0-12.0 [place] [address]-02-28 09:49:00 Test Item Value Reference Range Interpretation Comments Eosinophils (test code = 6.6 See_Comment [A utomated message] The Eosinophils) system which ge nerated this result tra nsmitted reference range : <=4.0. The reference r christiano was not used to int erpret this result as normal/abnormal . [place] [address]-02-28 09:49:00 Test Item Value Reference Range Interpretation Comments Basophils (test code = 0.7 See_Comment [Aut omated message] The Basophils) system which ge nerated this result tra nsmitted reference range : <=1.0. The reference r christiano was not used to int erpret this result as normal/abnormal . [place] 884133-02-28 09:49:00 Test Item Value Reference Range Interpretation Comments Neutrophils # (test code = Neutrophils 3.0 1.5-8.1 #) [place] [address]-02-28 09:49:00 Test Item Value Reference Range Interpretation Comments Lymphocytes # (test code = Lymphocytes 2.0 1.0-5.5 #) [place] [address]-02-28 09:49:00 Test Item Value Reference Range Interpretation Comments Monocytes # (test code 0.7 See_Comment [Aut omated message] The = Monocytes #) system which generated this result tra nsmitted reference range : <=0.8. The reference r christiano was not used to int erpret this result as normal/abnormal . [place] [address]-02-28 09:49:00 Test Item Value Reference Range Interpretation Comments Eosinophils # (test code 0.4 See_Comment [A utomated message] The = Eosinophils #) system whic h generated this result tra nsmitted reference range : <=0.5. The reference r christiano was not used to int erpret this result as normal/abnormal . [place] 884133-02-28 09:49:00 Test Item Value Reference Range Interpretation Comments WBC (test code = WBC) 6.2 3.7-10.4 [place] 884133-02-28 09:49:00 Test Item Value Reference Range Interpretation Comments RBC (test code = RBC) 3.06 4.20-5.40 [place] 884133-02-28 09:49:00 Test Item Value Reference Range Interpretation Comments Hgb (test code = Hgb) 9.2 12.0-16.0 [place] 884133-02-28 09:49:00 Test Item Value Reference Range Interpretation Comments Hct (test code = Hct) 28.0 36.0-48.0 [place] 884133-02-28 09:49:00 Test Item Value Reference Range Interpretation Comments MCV (test code = MCV) 91.5 80.0-98.0 [place] 884133-02-28 09:49:00 Test Item Value Reference Range Interpretation Comments MCH (test code = MCH) 30.0 pg 27.0-31.0 [facility] CenterRvmpdvrFCXKIOUTFI9037-03-84 09:49:00 Test Item Value Reference Range Interpretation Comments MCHC (test code = MCHC) 32.7 32.0-36.0 [facility] CenterCwohxnqRKQOVHFVRH7815-92-54 09:49:00 Test Item Value Reference Range Interpretation Comments RDW (test code = RDW) 14.1 11.5-14.5 [facility] CenterFgbzvrpFQNOVDZOMF8068-09-25 09:49:00 Test Item Value Reference Range Interpretation Comments Platelet (test code = Platelet) 136 133-450 [facility] CenterBymaxrqNXKJBVTTGW3668-12-17 09:49:00 Test Item Value Reference Range Interpretation Comments MPV (test code = MPV) 7.7 7.4-10.4 [facility]2023-02-28 09:49:00 Test Item Value Reference Range Interpretation Comments Glucose Lvl (test code = Glucose Lvl) 93 70-99 [facility]2023-02-28 09:49:00 Test Item Value Reference Range Interpretation Comments BUN (test code = BUN) 30 7-22 [place] 608593-02-28 09:49:00 Test Item Value Reference Range Interpretation Comments Creatinine Lvl (test code = Creatinine 2.50 0.50-1.40 Lvl) [place] 608593-02-28 09:49:00 Test Item Value Reference Range Interpretation Comments Sodium Lvl (test code = Sodium Lvl) 138 135-145 [place] [address]-02-28 09:49:00 Test Item Value Reference Range Interpretation Comments Potassium Lvl (test code = Potassium 5.1 3.5-5.1 Lvl) [place] [address]-02-28 09:49:00 Test Item Value Reference Range Interpretation Comments Chloride Lvl (test code = Chloride Lvl) 108 95-109 [place] [address]-02-28 09:49:00 Test Item Value Reference Range Interpretation Comments CO2 (test code = CO2) 30 24-32 [place] 608593-02-28 09:49:00 Test Item Value Reference Range Interpretation Comments Calcium Lvl (test code = Calcium Lvl) 8.0 8.5-10.5 [place] 608593-02-28 09:49:00 Test Item Value Reference Range Interpretation Comments AGAP (test code = AGAP) 5.1 10.0-20.0 [place] [address]-02-28 09:49:00 Test Item Value Reference Range Interpretation Comments eGFR (test code = eGFR) 19 [place] [address]-02-28 09:49:00 Test Item Value Reference Range Interpretation Comments Glucose Lvl (test code = Glucose Lvl) 93 70-99 [place] [address]-02-28 09:49:00 Test Item Value Reference Range Interpretation Comments BUN (test code = BUN) 30 7-22 [place] [address]-02-28 09:49:00 Test Item Value Reference Range Interpretation Comments Creatinine Lvl (test code = Creatinine 2.50 0.50-1.40 Lvl) [place] [address]-02-28 09:49:00 Test Item Value Reference Range Interpretation Comments Sodium Lvl (test code = Sodium Lvl) 138 135-145 [place] [address]-02-28 09:49:00 Test Item Value Reference Range Interpretation Comments Potassium Lvl (test code = Potassium 5.1 3.5-5.1 Lvl) [place] 809593-02-28 09:49:00 Test Item Value Reference Range Interpretation Comments Chloride Lvl (test code = Chloride Lvl) 108 95-109 [facility] CenterIynauqvEQUSVXCTN1688-22-63 09:49:00 Test Item Value Reference Range Interpretation Comments CO2 (test code = CO2) 30 24-32 [place] 809593-02-28 09:49:00 Test Item Value Reference Range Interpretation Comments Calcium Lvl (test code = Calcium Lvl) 8.0 8.5-10.5 [facility]IydyomtPCXXTOAXW2835-21-78 09:49:00 Test Item Value Reference Range Interpretation Comments AGAP (test code = AGAP) 5.1 10.0-20.0 [place] [id number] 09:49:00 Test Item Value Reference Range Interpretation Comments eGFR (test code = eGFR) 19 [facility] CenterMccdwcjZXQLWWIFZY1786-13-35 09:49:00 Test Item Value Reference Range Interpretation Comments Segs (test code = Segs) 49.2 45.0-75.0 [facility] CenterEbicisvUOELUDHGJZ1272-94-76 09:49:00 Test Item Value Reference Range Interpretation Comments Lymphocytes (test code = Lymphocytes) 33.0 20.0-40.0 [facility] CenterZfccgsrICTANSICOK4608-67-34 09:49:00 Test Item Value Reference Range Interpretation Comments Monocytes (test code = Monocytes) 10.5 2.0-12.0 [facility] CenterUbkkpkrOMBZZHCHUE1979-88-18 09:49:00 Test Item Value Reference Range Interpretation Comments Eosinophils (test code = 6.6 See_Comment [A utomated message] The Eosinophils) system which ge nerated this result tra nsmitted reference range : <=4.0. The reference r christiano was not used to int erpret this result as normal/abnormal . [facility] CenterYseihynVCAVHSETBT2529-94-96 09:49:00 Test Item Value Reference Range Interpretation Comments Basophils (test code = 0.7 See_Comment [Aut omated message] The Basophils) system which ge nerated this result tra nsmitted reference range : <=1.0. The reference r christiano was not used to int erpret this result as normal/abnormal . [facility] CenterLeqrvuwTOFYFDRYTZ6029-68-11 09:49:00 Test Item Value Reference Range Interpretation Comments Neutrophils # (test code = Neutrophils 3.0 1.5-8.1 #) [facility] CenterOzazkgtDRGDROJXHD4314-35-00 09:49:00 Test Item Value Reference Range Interpretation Comments Lymphocytes # (test code = Lymphocytes 2.0 1.0-5.5 #) [place] 884133-02-28 09:49:00 Test Item Value Reference Range Interpretation Comments Monocytes # (test code 0.7 See_Comment [Aut omated message] The = Monocytes #) system which generated this result tra nsmitted reference range : <=0.8. The reference r christiano was not used to int erpret this result as normal/abnormal . [place] 884133-02-28 09:49:00 Test Item Value Reference Range Interpretation Comments Eosinophils # (test code 0.4 See_Comment [A utomated message] The = Eosinophils #) system whic h generated this result tra nsmitted reference range : <=0.5. The reference r christiano was not used to int erpret this result as normal/abnormal . [facility] CenterUhdggnoITYBEBGLVB0185-74-02 09:49:00 Test Item Value Reference Range Interpretation Comments WBC (test code = WBC) 6.2 3.7-10.4 [place] 884133-02-28 09:49:00 Test Item Value Reference Range Interpretation Comments RBC (test code = RBC) 3.06 4.20-5.40 [place] 884133-02-28 09:49:00 Test Item Value Reference Range Interpretation Comments Hgb (test code = Hgb) 9.2 12.0-16.0 [place] 884133-02-28 09:49:00 Test Item Value Reference Range Interpretation Comments Hct (test code = Hct) 28.0 36.0-48.0 [place] 884133-02-28 09:49:00 Test Item Value Reference Range Interpretation Comments MCV (test code = MCV) 91.5 80.0-98.0 [place] [address]-02-28 09:49:00 Test Item Value Reference Range Interpretation Comments MCH (test code = MCH) 30.0 pg 27.0-31.0 [place] [address]-02-28 09:49:00 Test Item Value Reference Range Interpretation Comments MCHC (test code = MCHC) 32.7 32.0-36.0 [place] 884133-02-28 09:49:00 Test Item Value Reference Range Interpretation Comments RDW (test code = RDW) 14.1 11.5-14.5 [place] [address]-02-28 09:49:00 Test Item Value Reference Range Interpretation Comments Platelet (test code = Platelet) 136 133-450 [place] [address]-02-28 09:49:00 Test Item Value Reference Range Interpretation Comments MPV (test code = MPV) 7.7 7.4-10.4 [place] [address]-02-28 09:49:00 Test Item Value Reference Range Interpretation Comments Segs (test code = Segs) 49.2 45.0-75.0 [place] [address]-02-28 09:49:00 Test Item Value Reference Range Interpretation Comments Lymphocytes (test code = Lymphocytes) 33.0 20.0-40.0 [place] [address]-02-28 09:49:00 Test Item Value Reference Range Interpretation Comments Monocytes (test code = Monocytes) 10.5 2.0-12.0 [place] [address]-02-28 09:49:00 Test Item Value Reference Range Interpretation Comments Eosinophils (test code = 6.6 See_Comment [A utomated message] The Eosinophils) system which ge nerated this result tra nsmitted reference range : <=4.0. The reference r christiano was not used to int erpret this result as normal/abnormal . [place] 884133-02-28 09:49:00 Test Item Value Reference Range Interpretation Comments Basophils (test code = 0.7 See_Comment [Aut omated message] The Basophils) system which ge nerated this result tra nsmitted reference range : <=1.0. The reference r christiano was not used to int erpret this result as normal/abnormal . [place] 884133-02-28 09:49:00 Test Item Value Reference Range Interpretation Comments Neutrophils # (test code = Neutrophils 3.0 1.5-8.1 #) [place] [address]-02-28 09:49:00 Test Item Value Reference Range Interpretation Comments Lymphocytes # (test code = Lymphocytes 2.0 1.0-5.5 #) [place] [address]-02-28 09:49:00 Test Item Value Reference Range Interpretation Comments Monocytes # (test code 0.7 See_Comment [Aut omated message] The = Monocytes #) system which generated this result tra nsmitted reference range : <=0.8. The reference r christiano was not used to int erpret this result as normal/abnormal . [facility] CenterYjcngioYXUWHOXLME6955-28-95 09:49:00 Test Item Value Reference Range Interpretation Comments Eosinophils # (test code 0.4 See_Comment [A utomated message] The = Eosinophils #) system whic h generated this result tra nsmitted reference range : <=0.5. The reference r christiano was not used to int erpret this result as normal/abnormal . [facility] CenterNgcvobcIXTUXCGQXR1803-06-44 09:49:00 Test Item Value Reference Range Interpretation Comments WBC (test code = WBC) 6.2 3.7-10.4 [facility] CenterEmrpdieVIAWXMRVSD9675-71-18 09:49:00 Test Item Value Reference Range Interpretation Comments RBC (test code = RBC) 3.06 4.20-5.40 [facility] CenterIemnuneXLBFIUGUCX4580-35-65 09:49:00 Test Item Value Reference Range Interpretation Comments Hgb (test code = Hgb) 9.2 12.0-16.0 [facility] CenterKigcdmcUTETRTOAOF9453-76-31 09:49:00 Test Item Value Reference Range Interpretation Comments Hct (test code = Hct) 28.0 36.0-48.0 [facility] CenterAokqpjcGIXPNZOIUZ1845-45-60 09:49:00 Test Item Value Reference Range Interpretation Comments MCV (test code = MCV) 91.5 80.0-98.0 [facility] CenterNqxyyahWBYQMJIUDY4422-66-95 09:49:00 Test Item Value Reference Range Interpretation Comments MCH (test code = MCH) 30.0 pg 27.0-31.0 [facility] CenterIcgwpcqGSMEWGIAZP0418-04-53 09:49:00 Test Item Value Reference Range Interpretation Comments MCHC (test code = MCHC) 32.7 32.0-36.0 [facility] CenterCguuzmcIYJNMQFJWJ6213-29-29 09:49:00 Test Item Value Reference Range Interpretation Comments RDW (test code = RDW) 14.1 11.5-14.5 [facility] CenterYqsfpnxQDUCZXDCIE5640-53-10 09:49:00 Test Item Value Reference Range Interpretation Comments Platelet (test code = Platelet) 136 133-450 [facility] CenterAtxonljGUMDNQCHLZ7737-68-26 09:49:00 Test Item Value Reference Range Interpretation Comments MPV (test code = MPV) 7.7 7.4-10.4 [place] 608593-02-28 09:49:00 Test Item Value Reference Range Interpretation Comments Glucose Lvl (test code = Glucose Lvl) 93 70-99 [place] 608593-02-28 09:49:00 Test Item Value Reference Range Interpretation Comments BUN (test code = BUN) 30 04-21 [place] 608593-02-28 09:49:00 Test Item Value Reference Range Interpretation Comments Creatinine Lvl (test code = Creatinine 2.50 0.50-1.40 Lvl) [place] 608593-02-28 09:49:00 Test Item Value Reference Range Interpretation Comments Sodium Lvl (test code = Sodium Lvl) 138 135-145 [place] 608593-02-28 09:49:00 Test Item Value Reference Range Interpretation Comments Potassium Lvl (test code = Potassium 5.1 3.5-5.1 Lvl) [facility]2023-02-28 09:49:00 Test Item Value Reference Range Interpretation Comments Chloride Lvl (test code = Chloride Lvl) 108 95-109 [place] 608593-02-28 09:49:00 Test Item Value Reference Range Interpretation Comments CO2 (test code = CO2) 30 24-32 [place] 608593-02-28 09:49:00 Test Item Value Reference Range Interpretation Comments Calcium Lvl (test code = Calcium Lvl) 8.0 8.5-10.5 [place] 608593-02-28 09:49:00 Test Item Value Reference Range Interpretation Comments AGAP (test code = AGAP) 5.1 10.0-20.0 [place] 608593-02-28 09:49:00 Test Item Value Reference Range Interpretation Comments eGFR (test code = eGFR) 19 [facility] CenterZjjavruTQPJCMIDD2676-48-21 09:49:00 Test Item Value Reference Range Interpretation Comments Glucose Lvl (test code = Glucose Lvl) 93 70-99 [facility] CenterAnwodsvOJLXKNHBI8175-40-71 09:49:00 Test Item Value Reference Range Interpretation Comments BUN (test code = BUN) 30 -22 [place] 809593-02-28 09:49:00 Test Item Value Reference Range Interpretation Comments Creatinine Lvl (test code = Creatinine 2.50 0.50-1.40 Lvl) [facility] CenterSwaxvwuDOPUOUBBD4933-24-54 09:49:00 Test Item Value Reference Range Interpretation Comments Sodium Lvl (test code = Sodium Lvl) 138 135-145 [facility] CenterRlgpsriSISJJBSAR1368-94-17 09:49:00 Test Item Value Reference Range Interpretation Comments Potassium Lvl (test code = Potassium 5.1 3.5-5.1 Lvl) [facility] CenterJkcqcrcGADHDSBGG4924-29-30 09:49:00 Test Item Value Reference Range Interpretation Comments Chloride Lvl (test code = Chloride Lvl) 108 95-109 [place] 809593-02-28 09:49:00 Test Item Value Reference Range Interpretation Comments CO2 (test code = CO2) 30 24-32 [place] 809593-02-28 09:49:00 Test Item Value Reference Range Interpretation Comments Calcium Lvl (test code = Calcium Lvl) 8.0 8.5-10.5 [facility] HospitalOqdcszfTBTWVL3139-23-56 14:44:19 Test Item Value Reference Range Interpretation Comments RADRPT (test code = EXAM: MRI CERVICAL SPINE RADRPT) WITHOUT CONTRASTDATE: 11/27/2022INDICATION: - Rule out cervical spine stenosis.COMPARISON: MRI 09/05/2020; CT 11/26/2022TECHNIQUE: Multiplanar, multisequence, noncontrast MR imaging of the cervical spine.IV contrast: NoneFINDINGS: Numbering: There are 7 cervical, nonrib-bearing vertebrae.Alignment: Unchanged kyphosis.Bones: Degenerative marrow edema at C5-6 has slightly progressed. C3-4 facet fusion. Vertebral body heights are maintained.Spinal cord: Indented at multiple levels from spinal canal narrowing as well as displaced from the kyphotic curvature. Focal abnormal spinal cord signal at C4-5 likely has a small component of volume loss that is more pronounced on the right (series 9001 image 25).Individual levels:Craniocervical junction: Intact.C2-C3: Posterior disc osteophyte complex and ligamentum flavum thickening. Moderate spinal canal narrowing with dorsal indentation of the cervical spinal cord. No abnormal cord signal. Severe right facet arthropathy with severe right and mild left neural foraminal narrowing.C3-C4: Osseous fusion. No spinal canal narrowing. Moderate neural foraminal narrowing from uncovertebral arthropathy.C4-C5: Posterior disc osteophyte complex and ligamentum flavum thickening. Severe spinal canal stenosis. Abnormal spinal cord signal is more pronounced on the right and likely has some volume loss (series 9001 image 25). Uncovertebral arthropathy with severe neural foraminal narrowing.C5-C6: Degenerative marrow edema. Moderate posterior disc osteophyte complex. Ligamentum flavum thickening. Flattening of the cervical spinal cord with severe spinal canal narrowing. Uncovertebral arthropathy and severe neural foraminal narrowing.C6-C7: Mostly left-sided posterior disc osteophyte complex. Ligamentum flavum thickening. Severe spinal canal narrowing. Left uncovertebral arthropathy and severe left neural foraminal narrowing.C7-T1: Facet arthropathy and anterolisthesis. No spinal canal or marked neural foraminal narrowing.Other: Paranasal sinus opacification.IMPRESSION: 1. 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 The most severe degenerative changes are at C5-6 where there is severe spinal canal and neural foraminal narrowing.3. Advanced adjacent segment degenerative changes with moderate to severe and severe spinal canal narrowing at C3-4 and C4-5, respectively. Likely focal abnormal spinal cord signal at C4-5 with suspected component of volume loss that may indicate chronicity but can be correlated for recent change in clinical symptoms.4. Additional severe spinal canal narrowing at C6-7. [facility] HospitalFwufbieUTSBEG9932-58-49 14:44:19 Test Item Value Reference Range Interpretation Comments RADRPT (test code = EXAM: MRI CERVICAL SPINE RADRPT) WITHOUT CONTRASTDATE: 11/27/2022INDICATION: - Rule out cervical spine stenosis.COMPARISON: MRI 09/05/2020; CT 11/26/2022TECHNIQUE: Multiplanar, multisequence, noncontrast MR imaging of the cervical spine.IV contrast: NoneFINDINGS: Numbering: There are 7 cervical, nonrib-bearing vertebrae.Alignment: Unchanged kyphosis.Bones: Degenerative marrow edema at C5-6 has slightly progressed. C3-4 facet fusion. Vertebral body heights are maintained.Spinal cord: Indented at multiple levels from spinal canal narrowing as well as displaced from the kyphotic curvature. Focal abnormal spinal cord signal at C4-5 likely has a small component of volume loss that is more pronounced on the right (series 9001 image 25).Individual levels:Craniocervical junction: Intact.C2-C3: Posterior disc osteophyte complex and ligamentum flavum thickening. Moderate spinal canal narrowing with dorsal indentation of the cervical spinal cord. No abnormal cord signal. Severe right facet arthropathy with severe right and mild left neural foraminal narrowing.C3-C4: Osseous fusion. No spinal canal narrowing. Moderate neural foraminal narrowing from uncovertebral arthropathy.C4-C5: Posterior disc osteophyte complex and ligamentum flavum thickening. Severe spinal canal stenosis. Abnormal spinal cord signal is more pronounced on the right and likely has some volume loss (series 9001 image 25). Uncovertebral arthropathy with severe neural foraminal narrowing.C5-C6: Degenerative marrow edema. Moderate posterior disc osteophyte complex. Ligamentum flavum thickening. Flattening of the cervical spinal cord with severe spinal canal narrowing. Uncovertebral arthropathy and severe neural foraminal narrowing.C6-C7: Mostly left-sided posterior disc osteophyte complex. Ligamentum flavum thickening. Severe spinal canal narrowing. Left uncovertebral arthropathy and severe left neural foraminal narrowing.C7-T1: Facet arthropathy and anterolisthesis. No spinal canal or marked neural foraminal narrowing.Other: Paranasal sinus opacification.IMPRESSION: 1. 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 The most severe degenerative changes are at C5-6 where there is severe spinal canal and neural foraminal narrowing.3. Advanced adjacent segment degenerative changes with moderate to severe and severe spinal canal narrowing at C3-4 and C4-5, respectively. Likely focal abnormal spinal cord signal at C4-5 with suspected component of volume loss that may indicate chronicity but can be correlated for recent change in clinical symptoms.4. Additional severe spinal canal narrowing at C6-7. [facility] HospitalOjpxfqiNQXOLY8061-30-79 14:44:19 Test Item Value Reference Range Interpretation Comments RADRPT (test code = EXAM: MRI CERVICAL SPINE RADRPT) WITHOUT CONTRASTDATE: 11/27/2022INDICATION: - Rule out cervical spine stenosis.COMPARISON: MRI 09/05/2020; CT 11/26/2022TECHNIQUE: Multiplanar, multisequence, noncontrast MR imaging of the cervical spine.IV contrast: NoneFINDINGS: Numbering: There are 7 cervical, nonrib-bearing vertebrae.Alignment: Unchanged kyphosis.Bones: Degenerative marrow edema at C5-6 has slightly progressed. C3-4 facet fusion. Vertebral body heights are maintained.Spinal cord: Indented at multiple levels from spinal canal narrowing as well as displaced from the kyphotic curvature. Focal abnormal spinal cord signal at C4-5 likely has a small component of volume loss that is more pronounced on the right (series 9001 image 25).Individual levels:Craniocervical junction: Intact.C2-C3: Posterior disc osteophyte complex and ligamentum flavum thickening. Moderate spinal canal narrowing with dorsal indentation of the cervical spinal cord. No abnormal cord signal. Severe right facet arthropathy with severe right and mild left neural foraminal narrowing.C3-C4: Osseous fusion. No spinal canal narrowing. Moderate neural foraminal narrowing from uncovertebral arthropathy.C4-C5: Posterior disc osteophyte complex and ligamentum flavum thickening. Severe spinal canal stenosis. Abnormal spinal cord signal is more pronounced on the right and likely has some volume loss (series 9001 image 25). Uncovertebral arthropathy with severe neural foraminal narrowing.C5-C6: Degenerative marrow edema. Moderate posterior disc osteophyte complex. Ligamentum flavum thickening. Flattening of the cervical spinal cord with severe spinal canal narrowing. Uncovertebral arthropathy and severe neural foraminal narrowing.C6-C7: Mostly left-sided posterior disc osteophyte complex. Ligamentum flavum thickening. Severe spinal canal narrowing. Left uncovertebral arthropathy and severe left neural foraminal narrowing.C7-T1: Facet arthropathy and anterolisthesis. No spinal canal or marked neural foraminal narrowing.Other: Paranasal sinus opacification.IMPRESSION: 1. 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 The most severe degenerative changes are at C5-6 where there is severe spinal canal and neural foraminal narrowing.3. Advanced adjacent segment degenerative changes with moderate to severe and severe spinal canal narrowing at C3-4 and C4-5, respectively. Likely focal abnormal spinal cord signal at C4-5 with suspected component of volume loss that may indicate chronicity but can be correlated for recent change in clinical symptoms.4. Additional severe spinal canal narrowing at C6-7. [facility]PnatksgXCTPJDSYBI4016-19-93 10:40:00 Test Item Value Reference Range Interpretation Comments Coronavirus (COVID-19) Not Detected (11/27/22 JONATHAN (test code = 4:40 AM) Coronavirus (COVID-19) JONATHAN) [facility]landStkspbcXAUUJXRSZR5827-68-68 10:40:00 Test Item Value Reference Range Interpretation Comments Coronavirus (COVID-19) Not Detected (11/27/22 JONATHAN (test code = 4:40 AM) Coronavirus (COVID-19) JONATHAN) [facility]landZytaujoPXPMXZWWAP2629-88-84 10:40:00 Test Item Value Reference Range Interpretation Comments Coronavirus (COVID-19) Not Detected (11/27/22 JONATHAN (test code = 4:40 AM) Coronavirus (COVID-19) JONATHAN) [facility]landVlyqrseZJAIBUDVOZ6000-43-67 10:40:00 Test Item Value Reference Range Interpretation Comments Coronavirus (COVID-19) Not Detected (11/27/22 JONATHAN (test code = 4:40 AM) Coronavirus (COVID-19) JONATHAN) [facility]landRjaaxxwNFSDCTYVXW0047-64-14 10:40:00 Test Item Value Reference Range Interpretation Comments Coronavirus (COVID-19) Not Detected (11/27/22 JONATHAN (test code = 4:40 AM) Coronavirus (COVID-19) JONATHAN) [facility]landOkuvaqzFGMGDEYKKO2455-67-32 10:40:00 Test Item Value Reference Range Interpretation Comments Coronavirus (COVID-19) Not Detected (11/27/22 JONATHAN (test code = 4:40 AM) Coronavirus (COVID-19) JONATHAN) [place] [id number] 07:58:03 Test Item Value Reference Range Interpretation Comments RADRPT (test code = EXAM: CT BRAIN WITHOUT RADRPT) CONTRASTDATE: 11/27/2022INDICATION: - pain post-trauma.COMPARISON: CT head November 26 and 2022.TECHNIQUE: Axial CT images of the brain were obtained. Sagittal and coronal reformats.IV contrast: NoneDLP: Refer to CT protocol formFINDINGS: Evolving subarachnoid hemorrhage along the left frontal parasagittal sulci. Evolving subdural hematoma along the posterior falx and right tentorial leaflet. The subdural hematoma along the superior surface of the left side of the tentorium has increased in hyperdensity and measures 9m in maximal diameter. Mass effect on the adjacent brain parenchyma has not significantly changed.Chronic microvascular ischemic changes of the supratentorial white matter.The skull base, calvarium, and included facial bones are unremarkable. Interval hyperdensity in the left sphenoid sinus could represent a small amount of hemorrhage. This is unchanged compared to the immediate prior study done on 11/26/2022 but new compared to the study done on 11/21/2022.Mucosal thickening was noted on the prior studies. No skull base fracture identified.IMPRESSION:1. Interval evolution with increased prominence of the subdural hematoma along the superior surface of the left side of the tentorium. No significant change in size or mass effect compared to the immediate prior study done on 11/26/2022.2. Evolving left frontal parafalcine subarachnoid hemorrhage.3. Evolving posterior falcine and right tentorial leaflet subdural hematoma.UT SECTION: Neuro Above findings were communicated to and acknowledged by Dr. Barriga via telephone at 11/27/2022 2:31 by Urbano Ashton MD [facility] HospitalLrpsrwrZKOACY7262-49-53 07:58:03 Test Item Value Reference Range Interpretation Comments RADRPT (test code = EXAM: CT BRAIN WITHOUT RADRPT) CONTRASTDATE: 11/27/2022INDICATION: - pain post-trauma.COMPARISON: CT head November 26 and 2022.TECHNIQUE: Axial CT images of the brain were obtained. Sagittal and coronal reformats.IV contrast: NoneDLP: Refer to CT protocol formFINDINGS: Evolving subarachnoid hemorrhage along the left frontal parasagittal sulci. Evolving subdural hematoma along the posterior falx and right tentorial leaflet. The subdural hematoma along the superior surface of the left side of the tentorium has increased in hyperdensity and measures 9m in maximal diameter. Mass effect on the adjacent brain parenchyma has not significantly changed.Chronic microvascular ischemic changes of the supratentorial white matter.The skull base, calvarium, and included facial bones are unremarkable. Interval hyperdensity in the left sphenoid sinus could represent a small amount of hemorrhage. This is unchanged compared to the immediate prior study done on 11/26/2022 but new compared to the study done on 11/21/2022.Mucosal thickening was noted on the prior studies. No skull base fracture identified.IMPRESSION:1. Interval evolution with increased prominence of the subdural hematoma along the superior surface of the left side of the tentorium. No significant change in size or mass effect compared to the immediate prior study done on 11/26/2022.2. Evolving left frontal parafalcine subarachnoid hemorrhage.3. Evolving posterior falcine and right tentorial leaflet subdural hematoma.UT SECTION: Neuro Above findings were communicated to and acknowledged by Dr. Barriga via telephone at 11/27/2022 2:31 by Urbano Ashton MD [facility] HospitalQqiwtihOIKAPR0082-76-16 07:58:03 Test Item Value Reference Range Interpretation Comments RADRPT (test code = EXAM: CT BRAIN WITHOUT RADRPT) CONTRASTDATE: 11/27/2022INDICATION: - pain post-trauma.COMPARISON: CT head November 26 and 2022.TECHNIQUE: Axial CT images of the brain were obtained. Sagittal and coronal reformats.IV contrast: NoneDLP: Refer to CT protocol formFINDINGS: Evolving subarachnoid hemorrhage along the left frontal parasagittal sulci. Evolving subdural hematoma along the posterior falx and right tentorial leaflet. The subdural hematoma along the superior surface of the left side of the tentorium has increased in hyperdensity and measures 9m in maximal diameter. Mass effect on the adjacent brain parenchyma has not significantly changed.Chronic microvascular ischemic changes of the supratentorial white matter.The skull base, calvarium, and included facial bones are unremarkable. Interval hyperdensity in the left sphenoid sinus could represent a small amount of hemorrhage. This is unchanged compared to the immediate prior study done on 11/26/2022 but new compared to the study done on 11/21/2022.Mucosal thickening was noted on the prior studies. No skull base fracture identified.IMPRESSION:1. Interval evolution with increased prominence of the subdural hematoma along the superior surface of the left side of the tentorium. No significant change in size or mass effect compared to the immediate prior study done on 11/26/2022.2. Evolving left frontal parafalcine subarachnoid hemorrhage.3. Evolving posterior falcine and right tentorial leaflet subdural hematoma.UT SECTION: Neuro Above findings were communicated to and acknowledged by Dr. Barriga via telephone at 11/27/2022 2:31 by Urbano Ashton MD [facility] [id number] 07:22:00 Test Item Value Reference Range Interpretation Comments ABO/Rh (test code = ABO/Rh) O [facility] [id number] 07:22:00 Test Item Value Reference Range Interpretation Comments Antibody Scrn (test Negative (11/27/22 1:22 code = Antibody Scrn) AM) [facility] [id number] 07:22:00 Test Item Value Reference Range Interpretation Comments ABO/Rh (test code = ABO/Rh) [facility]ens[facility] [id number] 07:22:00 Test Item Value Reference Range Interpretation Comments Antibody Scrn (test Negative (11/27/22 1:22 code = Antibody Scrn) AM) [facility] [id number] 07:22:00 Test Item Value Reference Range Interpretation Comments ABO/Rh (test code = ABO/Rh) [facility] [id number] 07:22:00 Test Item Value Reference Range Interpretation Comments Antibody Scrn (test Negative (11/27/22 1:22 code = Antibody Scrn) AM) [facility] [id number] 07:22:00 Test Item Value Reference Range Interpretation Comments ABO/Rh (test code = ABO/Rh) O [facility] [place] [employer] [facility] [id number] 07:22:00 Test Item Value Reference Range Interpretation Comments Antibody Scrn (test Negative (11/27/22 1:22 code = Antibody Scrn) AM) [facility] TechnologiesL[facility] [employer] [id number] 07:22:00 Test Item Value Reference Range Interpretation Comments ABO/Rh (test code = ABO/Rh) O [facility] [employer] [id number] 07:22:00 Test Item Value Reference Range Interpretation Comments Antibody Scrn (test Negative (11/27/22 1:22 code = Antibody Scrn) AM) [facility] [id number] 07:22:00 Test Item Value Reference Range Interpretation Comments ABO/Rh (test code = ABO/Rh) O [facility] [id number] 07:22:00 Test Item Value Reference Range Interpretation Comments Antibody Scrn (test Negative (11/27/22 1:22 code = Antibody Scrn) AM) Nancy [id number] 06:55:28 Test Item Value Reference Range Interpretation Comments RADRPT (test code EXAM: CT CERVICAL SPINE = RADRPT) WITHOUT CONTRASTDATE: 11/27/2022 0:49INDICATION: Status post fall, pain after trauma. Following trauma transfer for higher level of care request for outside film interpretation CT cervical spine without contrast performed 11/26/2022 at [address] [facility] None.TECHNIQUE: Volumetric CT of the cervical spine is acquired without contrast. Axial, coronal and sagittal images are provided. IV contrast: None.DLP: Refer to CT protocol formUT SECTION: ERFINDINGS: The spine is imaged from the skull base to the level of T2/T3.Mechanical Test Technician: Noncontributory.Bones:There is generalized decreased bone mineral density.There is slight anterolisthesis of C2 upon C3 which appears compensatory for the advanced degree of degenerative change below the level of C3 which is associated with straightening of mid cervical lordosis.There is no acute fracture or malalignment of the cervical spine identified.Multilevel degenerative disc disease is present with marginal osteophyte formation, endplate sclerosis and severe disc space narrowing at C3-C7. Additional mild degenerative disc disease is present at T2/T3. Posterior disc osteophyte complex formation is present at C4-C5 and C5-C6.Advanced facet arthropathy is seen throughout the cervical spine with ankylosis at C3-C4 on the left.Uncovertebral osteoarthritis is present at C4-C7. There is bony encroachment and narrowing of neuroforamina seen which is moderate on the left at C4-C5 and moderate bilaterally at C5-C6 and C6-C7.Soft tissues: There is opacification of the left portion of the sphenoid sinus. Aneurysmal dilatation of the ascending aorta is partially seen, measuring up to 4 cm. Vascular calcifications are presentIMPRESSION: 1. There is no acute abnormality the cervical spine identified.2. Multilevel degenerative disc disease is present at C3-C7 associated with cervical spondylosis as described.3. Aneurysmal dilatation of ascending aorta is partially seen with transverse diameter measuring approximately 4 cm.4. There is generalized decreased bone mineral density.5. Vascular calcifications are present.6. Agree with outside report. Nancy [id number] 06:55:28 Test Item Value Reference Range Interpretation Comments RADRPT (test code EXAM: CT CERVICAL SPINE = RADRPT) WITHOUT CONTRASTDATE: 11/27/2022 0:49INDICATION: Status post fall, pain after trauma. Following trauma transfer for higher level of care request for outside film interpretation CT cervical spine without contrast performed 11/26/2022 at [address] [facility] [place]: None.TECHNIQUE: Volumetric CT of the cervical spine is acquired without contrast. Axial, coronal and sagittal images are provided. IV contrast: None.DLP: Refer to CT protocol formUT SECTION: ERFINDINGS: The spine is imaged from the skull base to the level of T2/T3.Mechanical Test Technician: Noncontributory.Bones:There is generalized decreased bone mineral density.There is slight anterolisthesis of C2 upon C3 which appears compensatory for the advanced degree of degenerative change below the level of C3 which is associated with straightening of mid cervical lordosis.There is no acute fracture or malalignment of the cervical spine identified.Multilevel degenerative disc disease is present with marginal osteophyte formation, endplate sclerosis and severe disc space narrowing at C3-C7. Additional mild degenerative disc disease is present at T2/T3. Posterior disc osteophyte complex formation is present at C4-C5 and C5-C6.Advanced facet arthropathy is seen throughout the cervical spine with ankylosis at C3-C4 on the left.Uncovertebral osteoarthritis is present at C4-C7. There is bony encroachment and narrowing of neuroforamina seen which is moderate on the left at C4-C5 and moderate bilaterally at C5-C6 and C6-C7.Soft tissues: There is opacification of the left portion of the sphenoid sinus. Aneurysmal dilatation of the ascending aorta is partially seen, measuring up to 4 cm. Vascular calcifications are presentIMPRESSION: 1. There is no acute abnormality the cervical spine identified.2. Multilevel degenerative disc disease is present at C3-C7 associated with cervical spondylosis as described.3. Aneurysmal dilatation of ascending aorta is partially seen with transverse diameter measuring approximately 4 cm.4. There is generalized decreased bone mineral density.5. Vascular calcifications are present.6. Agree with outside report. [facility] [id number] 06:55:28 Test Item Value Reference Range Interpretation Comments RADRPT (test code EXAM: CT CERVICAL SPINE = RADRPT) WITHOUT CONTRASTDATE: 11/27/2022 0:49INDICATION: Status post fall, pain after trauma. Following trauma transfer for higher level of care request for outside film interpretation CT cervical spine without contrast performed 11/26/2022 at [address] [facility] [place]: None.TECHNIQUE: Volumetric CT of the cervical spine is acquired without contrast. Axial, coronal and sagittal images are provided. IV contrast: None.DLP: Refer to CT protocol formUT SECTION: ERFINDINGS: The spine is imaged from the skull base to the level of T2/T3.Mechanical Test Technician: Noncontributory.Bones:There is generalized decreased bone mineral density.There is slight anterolisthesis of C2 upon C3 which appears compensatory for the advanced degree of degenerative change below the level of C3 which is associated with straightening of mid cervical lordosis.There is no acute fracture or malalignment of the cervical spine identified.Multilevel degenerative disc disease is present with marginal osteophyte formation, endplate sclerosis and severe disc space narrowing at C3-C7. Additional mild degenerative disc disease is present at T2/T3. Posterior disc osteophyte complex formation is present at C4-C5 and C5-C6.Advanced facet arthropathy is seen throughout the cervical spine with ankylosis at C3-C4 on the left.Uncovertebral osteoarthritis is present at C4-C7. There is bony encroachment and narrowing of neuroforamina seen which is moderate on the left at C4-C5 and moderate bilaterally at C5-C6 and C6-C7.Soft tissues: There is opacification of the left portion of the sphenoid sinus. Aneurysmal dilatation of the ascending aorta is partially seen, measuring up to 4 cm. Vascular calcifications are presentIMPRESSION: 1. There is no acute abnormality the cervical spine identified.2. Multilevel degenerative disc disease is present at C3-C7 associated with cervical spondylosis as described.3. Aneurysmal dilatation of ascending aorta is partially seen with transverse diameter measuring approximately 4 cm.4. There is generalized decreased bone mineral density.5. Vascular calcifications are present.6. Agree with outside report. [place] [id number] 06:27:00 Test Item Value Reference Range Interpretation Comments Glucose Lvl (test code = Glucose Lvl) 85 70-99 [place] [id number] 06:27:00 Test Item Value Reference Range Interpretation Comments BUN (test code = BUN) 28 7-22 [place] [id number] 06:27:00 Test Item Value Reference Range Interpretation Comments Creatinine Lvl (test code = Creatinine 2.19 0.50-1.40 Lvl) [place] [id number] 06:27:00 Test Item Value Reference Range Interpretation Comments Sodium Lvl (test code = Sodium Lvl) 143 135-145 [place] [id number] 06:27:00 Test Item Value Reference Range Interpretation Comments Potassium Lvl (test code = Potassium 4.3 3.5-5.1 Lvl) [place] [id number] 06:27:00 Test Item Value Reference Range Interpretation Comments Chloride Lvl (test code = Chloride Lvl) 110 95-109 [place] [id number] 06:27:00 Test Item Value Reference Range Interpretation Comments CO2 (test code = CO2) 27 24-32 [place] [id number] 06:27:00 Test Item Value Reference Range Interpretation Comments Calcium Lvl (test code = Calcium Lvl) 8.1 8.5-10.5 [place] [id number] 06:27:00 Test Item Value Reference Range Interpretation Comments AGAP (test code = AGAP) 10.3 10.0-20.0 [place] [id number] 06:27:00 Test Item Value Reference Range Interpretation Comments eGFR (test code = eGFR) 22 [place] 608593-02-27 06:27:00 Test Item Value Reference Range Interpretation Comments Total Protein (test code = Total 6.6 6.4-8.4 Protein) [place] 608593-02-27 06:27:00 Test Item Value Reference Range Interpretation Comments Albumin Lvl (test code = Albumin Lvl) 3.0 3.5-5.0 [place] 608593-02-27 06:27:00 Test Item Value Reference Range Interpretation Comments Globulin (test code = Globulin) 3.6 2.7-4.2 [facility] [id number] 06:27:00 Test Item Value Reference Range Interpretation Comments A/G Ratio (test code = A/G Ratio) 0.8 1 0.7-1.6 [facility] [id number] 06:27:00 Test Item Value Reference Range Interpretation Comments ALANINE AMINOTRANSFERASE 21 See_Comment [A utomated message] (test code = ALANINE The sys tem which AMINOTRANSFERASE) generated this result transmitted ref erence range: <=65. Th e reference range was not used to int erpret this result as normal/abnormal . [facility] [id number] 06:27:00 Test Item Value Reference Range Interpretation Comments AST (test code = AST) 17 See_Comment [Auto mated message] The system which ge nerated this result transmit sheba reference range : <=37. The reference range was not used to interpr et this result as edy l/abnormal. [facility] [id number] 06:27:00 Test Item Value Reference Range Interpretation Comments Alk Phos (test code = Alk Phos) 84 39-136 [facility] [id number] 06:27:00 Test Item Value Reference Range Interpretation Comments Bili Total (test code = Bili Total) 0.3 0.2-1.3 [facility] [id number] 06:27:00 Test Item Value Reference Range Interpretation Comments Bili Direct (test code no gt See_Comment [Aut omated message] The = Bili Direct) system which generated this result tra nsmitted reference range : <=0.3. The reference r christiano was not used to int erpret this result as edy l/abnormal. [facility] [employer] [id number] 06:27:00 Test Item Value Reference Range Interpretation Comments Bili Indirect Unable to See_Comment [Automated (test code = Bili Calculate message] T he system Indirect) which generated this result transmitted reference range : <=1.0. The reference range was not used to interpret this result as normal/abnormal . [facility] [employer] [id number] 06:27:00 Test Item Value Reference Range Interpretation Comments Lactic Acid Lvl (test code = Lactic 0.5 0.5-2.2 Acid Lvl) [facility]evilleAambzwkMWWLTLOTD9518-22-74 06:27:00 Test Item Value Reference Range Interpretation Comments Total Protein (test code = Total 6.6 6.4-8.4 Protein) [facility] CenterIqarbdpBSCPRACFI0591-05-14 06:27:00 Test Item Value Reference Range Interpretation Comments Albumin Lvl (test code = Albumin Lvl) 3.0 3.5-5.0 [facility] CenterTcywwyjSOIZMYFYB6750-34-16 06:27:00 Test Item Value Reference Range Interpretation Comments Globulin (test code = Globulin) 3.6 2.7-4.2 [facility] CenterTmbvnujDTAWKVQTZ4515-96-96 06:27:00 Test Item Value Reference Range Interpretation Comments A/G Ratio (test code = A/G Ratio) 0.8 1 0.7-1.6 [facility] CenterKuvhygnFYYLOBDXH3244-50-24 06:27:00 Test Item Value Reference Range Interpretation Comments ALANINE AMINOTRANSFERASE 21 See_Comment [A utomated message] (test code = ALANINE The sys tem which AMINOTRANSFERASE) generated this result transmitted ref erence range: <=65. Th e reference range was not used to int erpret this result as normal/abnormal . [facility] BeevilleJndqberYNUFBUSUP2577-62-06 06:27:00 Test Item Value Reference Range Interpretation Comments AST (test code = AST) 17 See_Comment [Auto mated message] The system which ge nerated this result transmit sheba reference range : <=37. The reference range was not used to interpr et this result as edy l/abnormal. [facility] BeevilleGlozfmxRGZYVCYWX4582-77-27 06:27:00 Test Item Value Reference Range Interpretation Comments Alk Phos (test code = Alk Phos) 84 39-136 [facility] CenterBmcvqveQJWLIHOXO9900-20-66 06:27:00 Test Item Value Reference Range Interpretation Comments Bili Total (test code = Bili Total) 0.3 0.2-1.3 [facility] CenterKxewblfNDRPXPLHP6312-54-29 06:27:00 Test Item Value Reference Range Interpretation Comments Bili Direct (test code no gt See_Comment [Aut omated message] The = Bili Direct) system which generated this result tra nsmitted reference range : <=0.3. The reference r christiano was not used to int erpret this result as edy l/abnormal. [facility] CenterMsifbefHTMEUYXOU3444-54-72 06:27:00 Test Item Value Reference Range Interpretation Comments Bili Indirect Unable to See_Comment [Automated (test code = Bili Calculate message] T he system Indirect) which generated this result transmitted reference range : <=1.0. The reference range was not used to interpret this result as normal/abnormal . [facility] CenterTeeyfrxPUPJBCOHR8626-20-57 06:27:00 Test Item Value Reference Range Interpretation Comments pH Justin (test code = pH Justin) 7.29 1 7.28-7.42 [facility] CenterTziogayJOQEXGFWV6758-40-67 06:27:00 Test Item Value Reference Range Interpretation Comments pCO2 Justin (test code = pCO2 Justin) 65 38-52 [facility] CenterLqpuxdwSEJYZHPTQ1257-71-00 06:27:00 Test Item Value Reference Range Interpretation Comments pO2 Justin (test code = pO2 Justin) 37 20-49 [facility] CenterOfryhhzUWUHOPVAP5534-27-91 06:27:00 Test Item Value Reference Range Interpretation Comments HCO3 Justin (test code = HCO3 Justin) 31 22-26 [facility] CenterBwggrmdJIEKLENXL2567-56-14 06:27:00 Test Item Value Reference Range Interpretation Comments BE Justin (test code = BE Justin) 3 -2-2 [facility] CenterYtlpmecINHYQXXJD7196-20-16 06:27:00 Test Item Value Reference Range Interpretation Comments O2 Sat Justin (calc) (test code = O2 Sat 63.0 40.0-70.0 Justin (calc)) [facility] CenterXagyvxnUHSCEOILS1815-59-99 06:27:00 Test Item Value Reference Range Interpretation Comments Temp Justin (test code = Temp Justin) 37.0 [facility] CenterUbdudzdTWUCDMCOT1973-73-80 06:27:00 Test Item Value Reference Range Interpretation Comments Lactic Acid Lvl (test code = Lactic 0.5 0.5-2.2 Acid Lvl) [facility] CenterOdvzecvDFIZGKDTH9182-79-68 06:27:00 Test Item Value Reference Range Interpretation Comments TSH (test code = TSH) 0.403 0.360-3.740 [facility] CenterYgrtxgtLGESJQLGGU1628-39-38 06:27:00 Test Item Value Reference Range Interpretation Comments WBC X 10x3 (test code = WBC X 10x3) 5.9 3.7-10.4 [place] 884133-02-27 06:27:00 Test Item Value Reference Range Interpretation Comments RBC X 10x6 (test code = RBC X 10x6) 3.67 4.20-5.40 [place] 884133-02-27 06:27:00 Test Item Value Reference Range Interpretation Comments Hgb (test code = Hgb) 10.7 12.0-16.0 [place] 884133-02-27 06:27:00 Test Item Value Reference Range Interpretation Comments Hct (test code = Hct) 33.5 36.0-48.0 [place] 884133-02-27 06:27:00 Test Item Value Reference Range Interpretation Comments MCV (test code = MCV) 91.4 80.0-98.0 [place] 884133-02-27 06:27:00 Test Item Value Reference Range Interpretation Comments MCH (test code = MCH) 29.3 pg 27.0-31.0 [place] 884133-02-27 06:27:00 Test Item Value Reference Range Interpretation Comments MCHC (test code = MCHC) 32.0 32.0-36.0 [facility] CenterEvdynjrJEBIFZIXHF7527-61-65 06:27:00 Test Item Value Reference Range Interpretation Comments RDW (test code = RDW) 13.7 11.5-14.5 [facility] CenterOkviecjEARXKAJWAP2255-65-60 06:27:00 Test Item Value Reference Range Interpretation Comments Platelet (test code = Platelet) 139 133-450 [facility] CenterNnejxwcLQQLVUTSCB5251-21-31 06:27:00 Test Item Value Reference Range Interpretation Comments MPV (test code = MPV) 7.5 7.4-10.4 [place] 884133-02-27 06:27:00 Test Item Value Reference Range Interpretation Comments ACT (TEG) Rapid (test code = ACT (TEG) 121 s 86-118 Rapid) [facility] CenterGwxbppaWVISCEKTAJ9643-00-27 06:27:00 Test Item Value Reference Range Interpretation Comments Split Point Rapid (test code = Split 0.6 min Point Rapid) [facility] CenterHozflihWTMKFPLBNG1113-69-78 06:27:00 Test Item Value Reference Range Interpretation Comments R-time Rapid (test code = R-time 0.8 min 0.4-0.7 Rapid) [facility] CenterMeuupzfQMLKPRVKMY5138-24-51 06:27:00 Test Item Value Reference Range Interpretation Comments K-time Rapid (test code = K-time 0.8 min 0.6-2.3 Rapid) [place] [address]-02-27 06:27:00 Test Item Value Reference Range Interpretation Comments Angle Rapid (test code = Angle 79 degrees 64-80 Rapid) [place] [address]-02-27 06:27:00 Test Item Value Reference Range Interpretation Comments Max Amplitude Rapid (test code = Max 71 mm 52-71 Amplitude Rapid) [place] [address]-02-27 06:27:00 Test Item Value Reference Range Interpretation Comments G-value Rapid (test code = G-value 12.1 5.0-11.6 Rapid) [place] [address]-02-27 06:27:00 Test Item Value Reference Range Interpretation Comments Estimated % Lysis Rapid 0.0 See_Comment [Au tomated message] The (test code = Estimated syste m which generated % Lysis Rapid) this result t ransmitted reference range : <=7.5. The reference r christiano was not used to int erpret this result as normal/abnormal . [facility] CenterQlftwpwBYAHVYWAQF9469-12-13 06:27:00 Test Item Value Reference Range Interpretation Comments RBC Morph (test code = Normal (11/27/22 12:27 RBC Morph) AM) [place] [address]-02-27 06:27:00 Test Item Value Reference Range Interpretation Comments Plt Morph (test code = Normal (11/27/22 12:27 Plt Morph) AM) [place] [address]-02-27 06:27:00 Test Item Value Reference Range Interpretation Comments Segs (test code = Segs) 60.1 45.0-75.0 [place] [address]-02-27 06:27:00 Test Item Value Reference Range Interpretation Comments Lymphocytes (test code = Lymphocytes) 23.9 20.0-40.0 [place] [address]-02-27 06:27:00 Test Item Value Reference Range Interpretation Comments Monocytes (test code = Monocytes) 9.6 2.0-12.0 [place] [address]-02-27 06:27:00 Test Item Value Reference Range Interpretation Comments Eosinophils (test code = 5.2 See_Comment [A utomated message] The Eosinophils) system which ge nerated this result tra nsmitted reference range : <=4.0. The reference r christiano was not used to int erpret this result as normal/abnormal . [facility] CenterBbcjejqVUYDUBCEDY5604-26-36 06:27:00 Test Item Value Reference Range Interpretation Comments Basophils (test code = 1.2 See_Comment [Aut omated message] The Basophils) system which ge nerated this result tra nsmitted reference range : <=1.0. The reference r christiano was not used to int erpret this result as normal/abnormal . [facility] CenterSuwwvfiZNBKBJQHGU0374-96-55 06:27:00 Test Item Value Reference Range Interpretation Comments Neutrophils # (test code = Neutrophils 3.5 1.5-8.1 #) [facility] CenterRykjhjmQCCPARSZRI7373-96-41 06:27:00 Test Item Value Reference Range Interpretation Comments Lymphocytes # (test code = Lymphocytes 1.4 1.0-5.5 #) [facility] CenterBardihgZDMCRDVBTQ3966-94-07 06:27:00 Test Item Value Reference Range Interpretation Comments Monocytes # (test code 0.6 See_Comment [Aut omated message] The = Monocytes #) system which generated this result tra nsmitted reference range : <=0.8. The reference r christiano was not used to int erpret this result as normal/abnormal . [facility] CenterUnxrjbhXPWCDHDDPA4768-50-20 06:27:00 Test Item Value Reference Range Interpretation Comments Eosinophils # (test code 0.3 See_Comment [A utomated message] The = Eosinophils #) system whic h generated this result tra nsmitted reference range : <=0.5. The reference r christiano was not used to int erpret this result as normal/abnormal . [facility]WktnkhzBNIIKHRIWH5899-16-41 06:27:00 Test Item Value Reference Range Interpretation Comments Basophils # (test code 0.1 See_Comment [Aut omated message] The = Basophils #) system which generated this result tra nsmitted reference range : <=0.2. The reference r christiano was not used to int erpret this result as normal/abnormal . [facility] CenterNgykskqSNJCGEBCAR5238-41-35 06:27:00 Test Item Value Reference Range Interpretation Comments ACT (TEG) Rapid (test code = ACT (TEG) 121 s 86-118 Rapid) [facility] CenterNerfxhvJAUZXMCDUJ0836-00-36 06:27:00 Test Item Value Reference Range Interpretation Comments Split Point Rapid (test code = Split 0.6 min Point Rapid) [facility] CenterZavgfqkNWTIGIZNCN7968-12-47 06:27:00 Test Item Value Reference Range Interpretation Comments R-time Rapid (test code = R-time 0.8 min 0.4-0.7 Rapid) [facility] CenterLwhzrwdWDKJZQKYNF4638-33-11 06:27:00 Test Item Value Reference Range Interpretation Comments K-time Rapid (test code = K-time 0.8 min 0.6-2.3 Rapid) [place] 884133-02-27 06:27:00 Test Item Value Reference Range Interpretation Comments Angle Rapid (test code = Angle 79 degrees 64-80 Rapid) [place] 884133-02-27 06:27:00 Test Item Value Reference Range Interpretation Comments Max Amplitude Rapid (test code = Max 71 mm 52-71 Amplitude Rapid) [facility] CenterAyovefkKXNRIOGDUZ3906-59-20 06:27:00 Test Item Value Reference Range Interpretation Comments G-value Rapid (test code = G-value 12.1 5.0-11.6 Rapid) [facility] CenterDuewonkJTWFGYTEFJ1131-40-03 06:27:00 Test Item Value Reference Range Interpretation Comments Estimated % Lysis Rapid 0.0 See_Comment [Au tomated message] The (test code = Estimated syste m which generated % Lysis Rapid) this result t ransmitted reference range : <=7.5. The reference r christiano was not used to int erpret this result as normal/abnormal . [facility] CenterAdsovouIEAWILRFXO7280-43-61:27:00 Test Item Value Reference Range Interpretation Comments RBC Morph (test code = Normal (11/27/22 12:27 RBC Morph) AM) [place] 884133-02-27 06:27:00 Test Item Value Reference Range Interpretation Comments Plt Morph (test code = Normal (11/27/22 12:27 Plt Morph) AM) [place] 884133-02-27 06:27:00 Test Item Value Reference Range Interpretation Comments Basophils # (test code 0.1 See_Comment [Aut omated message] The = Basophils #) system which generated this result tra nsmitted reference range : <=0.2. The reference r christiano was not used to int erpret this result as normal/abnormal . [place] 608593-02-27 06:27:00 Test Item Value Reference Range Interpretation Comments Glucose Lvl (test code = Glucose Lvl) 85 70-99 [place] 608593-02-27 06:27:00 Test Item Value Reference Range Interpretation Comments BUN (test code = BUN) 28 7-22 [place] 608593-02-27 06:27:00 Test Item Value Reference Range Interpretation Comments Creatinine Lvl (test code = Creatinine 2.19 0.50-1.40 Lvl) [place] 608593-02-27 06:27:00 Test Item Value Reference Range Interpretation Comments Sodium Lvl (test code = Sodium Lvl) 143 135-145 [place] 608593-02-27 06:27:00 Test Item Value Reference Range Interpretation Comments Potassium Lvl (test code = Potassium 4.3 3.5-5.1 Lvl) [place] 608593-02-27 06:27:00 Test Item Value Reference Range Interpretation Comments Chloride Lvl (test code = Chloride Lvl) 110 95-109 [place] 608593-02-27 06:27:00 Test Item Value Reference Range Interpretation Comments CO2 (test code = CO2) 27 24-32 [place] 608593-02-27 06:27:00 Test Item Value Reference Range Interpretation Comments Calcium Lvl (test code = Calcium Lvl) 8.1 8.5-10.5 [place] 608593-02-27 06:27:00 Test Item Value Reference Range Interpretation Comments AGAP (test code = AGAP) 10.3 10.0-20.0 [place] 608593-02-27 06:27:00 Test Item Value Reference Range Interpretation Comments eGFR (test code = eGFR) 22 [place] 608593-02-27 06:27:00 Test Item Value Reference Range Interpretation Comments Total Protein (test code = Total 6.6 6.4-8.4 Protein) [place] 608593-02-27 06:27:00 Test Item Value Reference Range Interpretation Comments Albumin Lvl (test code = Albumin Lvl) 3.0 3.5-5.0 [place] 608593-02-27 06:27:00 Test Item Value Reference Range Interpretation Comments Globulin (test code = Globulin) 3.6 2.7-4.2 [facility] [id number] 06:27:00 Test Item Value Reference Range Interpretation Comments A/G Ratio (test code = A/G Ratio) 0.8 1 0.7-1.6 [facility] [id number] 06:27:00 Test Item Value Reference Range Interpretation Comments ALANINE AMINOTRANSFERASE 21 See_Comment [A utomated message] (test code = ALANINE The sys tem which AMINOTRANSFERASE) generated this result transmitted ref erence range: <=65. Th e reference range was not used to int erpret this result as normal/abnormal . [facility] [id number] 06:27:00 Test Item Value Reference Range Interpretation Comments AST (test code = AST) 17 See_Comment [Auto mated message] The system which ge nerated this result transmit sheba reference range : <=37. The reference range was not used to interpr et this result as edy l/abnormal. [facility] [id number] 06:27:00 Test Item Value Reference Range Interpretation Comments Alk Phos (test code = Alk Phos) 84 39-136 [facility] YDSKF1488-98-30 06:27:00 Test Item Value Reference Range Interpretation Comments Bili Total (test code = Bili Total) 0.3 0.2-1.3 [facility] [id number] 06:27:00 Test Item Value Reference Range Interpretation Comments Bili Direct (test code no gt See_Comment [Aut omated message] The = Bili Direct) system which generated this result tra nsmitted reference range : <=0.3. The reference r christiano was not used to int erpret this result as edy l/abnormal. [facility] [id number] 06:27:00 Test Item Value Reference Range Interpretation Comments Bili Indirect Unable to See_Comment [Automated (test code = Bili Calculate message] T he system Indirect) which generated this result transmitted reference range : <=1.0. The reference range was not used to interpret this result as normal/abnormal . [facility] RJWZE1610-44-79 06:27:00 Test Item Value Reference Range Interpretation Comments Lactic Acid Lvl (test code = Lactic 0.5 0.5-2.2 Acid Lvl) [facility] CenterKqcwhxuGPDBIQSWG7066-09-74 06:27:00 Test Item Value Reference Range Interpretation Comments Total Protein (test code = Total 6.6 6.4-8.4 Protein) [facility] CenterRxkcrcuPMOPTQKTR4695-25-89 06:27:00 Test Item Value Reference Range Interpretation Comments Albumin Lvl (test code = Albumin Lvl) 3.0 3.5-5.0 [facility] CenterZqafqztRJJAVKVLS6493-13-83 06:27:00 Test Item Value Reference Range Interpretation Comments Globulin (test code = Globulin) 3.6 2.7-4.2 [facility] CenterOeamomuKQAEIYASD7027-14-76 06:27:00 Test Item Value Reference Range Interpretation Comments A/G Ratio (test code = A/G Ratio) 0.8 1 0.7-1.6 [facility] CenterIrmdoieEXKJAUDET9180-34-71 06:27:00 Test Item Value Reference Range Interpretation Comments ALANINE AMINOTRANSFERASE 21 See_Comment [A utomated message] (test code = ALANINE The sys tem which AMINOTRANSFERASE) generated this result transmitted ref erence range: <=65. Th e reference range was not used to int erpret this result as normal/abnormal . [facility] CenterKqcsafrPRBSVJGTV0634-92-79 06:27:00 Test Item Value Reference Range Interpretation Comments AST (test code = AST) 17 See_Comment [Auto mated message] The system which ge nerated this result transmit sheba reference range : <=37. The reference range was not used to interpr et this result as edy l/abnormal. [facility] CenterFkzioejXVCURVGEG7860-26-68 06:27:00 Test Item Value Reference Range Interpretation Comments Alk Phos (test code = Alk Phos) 84 39-136 [facility] CenterYhwiuduDWVFFPRFT7827-87-60 06:27:00 Test Item Value Reference Range Interpretation Comments Bili Total (test code = Bili Total) 0.3 0.2-1.3 [facility] CenterPxcztmwRSJRSBUMA0247-04-14 06:27:00 Test Item Value Reference Range Interpretation Comments Bili Direct (test code no gt See_Comment [Aut omated message] The = Bili Direct) system which generated this result tra nsmitted reference range : <=0.3. The reference r christiano was not used to int erpret this result as edy l/abnormal. [facility] CenterXrilmkbVCPWTOHDZ4729-28-32 06:27:00 Test Item Value Reference Range Interpretation Comments Bili Indirect Unable to See_Comment [Automated (test code = Bili Calculate message] T he system Indirect) which generated this result transmitted reference range : <=1.0. The reference range was not used to interpret this result as normal/abnormal . [facility] CenterMntxcloEAMTCQQFU6669-27-77 06:27:00 Test Item Value Reference Range Interpretation Comments pH Justin (test code = pH Justin) 7.29 1 7.28-7.42 [facility] CenterFvxmmifHVLIRTSBW8823-33-81 06:27:00 Test Item Value Reference Range Interpretation Comments pCO2 Justin (test code = pCO2 Justin) 65 38-52 [facility] CenterIhbvdbuAVRFHHCZF4917-15-86 06:27:00 Test Item Value Reference Range Interpretation Comments pO2 Justin (test code = pO2 Justin) 37 20-49 [facility] CenterNfnofqcOKPAELDFE5939-93-48 06:27:00 Test Item Value Reference Range Interpretation Comments HCO3 Justin (test code = HCO3 Justin) 31 22-26 [facility] CenterPhhkzzxNEZTFVINY1192-56-55 06:27:00 Test Item Value Reference Range Interpretation Comments BE Justin (test code = BE Justin) 3 -2-2 [facility] CenterUffqzsbZVZGXRUZD3536-62-72 06:27:00 Test Item Value Reference Range Interpretation Comments O2 Sat Justin (calc) (test code = O2 Sat 63.0 40.0-70.0 Justin (calc)) [facility] CenterKupxhsbGWXDYWKVF9120-73-47 06:27:00 Test Item Value Reference Range Interpretation Comments Temp Justin (test code = Temp Justin) 37.0 [facility] CenterOhulbbmISFFMIXWK7728-11-09 06:27:00 Test Item Value Reference Range Interpretation Comments Lactic Acid Lvl (test code = Lactic 0.5 0.5-2.2 Acid Lvl) [facility] CenterCltezzaCUQRAFAYN5385-94-49 06:27:00 Test Item Value Reference Range Interpretation Comments TSH (test code = TSH) 0.403 0.360-3.740 [facility] CenterGtsijiyLMJJATWHOR0003-68-15 06:27:00 Test Item Value Reference Range Interpretation Comments WBC X 10x3 (test code = WBC X 10x3) 5.9 3.7-10.4 [facility] CenterIthreueDSOTXLXKQR0957-30-21 06:27:00 Test Item Value Reference Range Interpretation Comments RBC X 10x6 (test code = RBC X 10x6) 3.67 4.20-5.40 [place] 884133-02-27 06:27:00 Test Item Value Reference Range Interpretation Comments Hgb (test code = Hgb) 10.7 12.0-16.0 [place] 884133-02-27 06:27:00 Test Item Value Reference Range Interpretation Comments Hct (test code = Hct) 33.5 36.0-48.0 [place] 884133-02-27 06:27:00 Test Item Value Reference Range Interpretation Comments MCV (test code = MCV) 91.4 80.0-98.0 [place] [address]-02-27 06:27:00 Test Item Value Reference Range Interpretation Comments MCH (test code = MCH) 29.3 pg 27.0-31.0 [place] 884133-02-27 06:27:00 Test Item Value Reference Range Interpretation Comments MCHC (test code = MCHC) 32.0 32.0-36.0 [place] 884133-02-27 06:27:00 Test Item Value Reference Range Interpretation Comments RDW (test code = RDW) 13.7 11.5-14.5 [place] 884133-02-27 06:27:00 Test Item Value Reference Range Interpretation Comments Platelet (test code = Platelet) 139 133-450 [place] 884133-02-27 06:27:00 Test Item Value Reference Range Interpretation Comments MPV (test code = MPV) 7.5 7.4-10.4 [place] [address]-02-27 06:27:00 Test Item Value Reference Range Interpretation Comments ACT (TEG) Rapid (test code = ACT (TEG) 121 s 86-118 Rapid) [place] 884133-02-27 06:27:00 Test Item Value Reference Range Interpretation Comments Split Point Rapid (test code = Split 0.6 min Point Rapid) [place] 884133-02-27 06:27:00 Test Item Value Reference Range Interpretation Comments R-time Rapid (test code = R-time 0.8 min 0.4-0.7 Rapid) [place] 884133-02-27 06:27:00 Test Item Value Reference Range Interpretation Comments K-time Rapid (test code = K-time 0.8 min 0.6-2.3 Rapid) [place] [address]-02-27 06:27:00 Test Item Value Reference Range Interpretation Comments Angle Rapid (test code = Angle 79 degrees 64-80 Rapid) [place] [address]-02-27 06:27:00 Test Item Value Reference Range Interpretation Comments Max Amplitude Rapid (test code = Max 71 mm 52-71 Amplitude Rapid) [place] [address]-02-27 06:27:00 Test Item Value Reference Range Interpretation Comments G-value Rapid (test code = G-value 12.1 5.0-11.6 Rapid) [place] [address]-02-27 06:27:00 Test Item Value Reference Range Interpretation Comments Estimated % Lysis Rapid 0.0 See_Comment [Au tomated message] The (test code = Estimated syste m which generated % Lysis Rapid) this result t ransmitted reference range : <=7.5. The reference r christiano was not used to int erpret this result as normal/abnormal . [place] 884133-02-27 06:27:00 Test Item Value Reference Range Interpretation Comments RBC Morph (test code = Normal (11/27/22 12:27 RBC Morph) AM) [place] [address]-02-27 06:27:00 Test Item Value Reference Range Interpretation Comments Plt Morph (test code = Normal (11/27/22 12:27 Plt Morph) AM) [place] [address]-02-27 06:27:00 Test Item Value Reference Range Interpretation Comments Segs (test code = Segs) 60.1 45.0-75.0 [place] [address]-02-27 06:27:00 Test Item Value Reference Range Interpretation Comments Lymphocytes (test code = Lymphocytes) 23.9 20.0-40.0 [place] [address]-02-27 06:27:00 Test Item Value Reference Range Interpretation Comments Monocytes (test code = Monocytes) 9.6 2.0-12.0 [place] [address]-02-27 06:27:00 Test Item Value Reference Range Interpretation Comments Eosinophils (test code = 5.2 See_Comment [A utomated message] The Eosinophils) system which ge nerated this result tra nsmitted reference range : <=4.0. The reference r christiano was not used to int erpret this result as normal/abnormal . [facility] CenterKepomruPWETWORODR9998-77-47 06:27:00 Test Item Value Reference Range Interpretation Comments Basophils (test code = 1.2 See_Comment [Aut omated message] The Basophils) system which ge nerated this result tra nsmitted reference range : <=1.0. The reference r christiano was not used to int erpret this result as normal/abnormal . [facility] CenterPozwfzkCEKQYHTNWN8741-42-57 06:27:00 Test Item Value Reference Range Interpretation Comments Neutrophils # (test code = Neutrophils 3.5 1.5-8.1 #) [facility] CenterFwqkbgtNNGFUKXSCS9831-06-24 06:27:00 Test Item Value Reference Range Interpretation Comments Lymphocytes # (test code = Lymphocytes 1.4 1.0-5.5 #) [facility] CenterEzwnncmETFCJGADSJ2416-38-88 06:27:00 Test Item Value Reference Range Interpretation Comments Monocytes # (test code 0.6 See_Comment [Aut omated message] The = Monocytes #) system which generated this result tra nsmitted reference range : <=0.8. The reference r christiano was not used to int erpret this result as normal/abnormal . [facility] CenterEivwairKNYARDLNBX3359-38-78 06:27:00 Test Item Value Reference Range Interpretation Comments Eosinophils # (test code 0.3 See_Comment [A utomated message] The = Eosinophils #) system whic h generated this result tra nsmitted reference range : <=0.5. The reference r christiano was not used to int erpret this result as normal/abnormal . [facility] CenterPuzoifgTIRUYAIJPF8917-48-45 06:27:00 Test Item Value Reference Range Interpretation Comments Basophils # (test code 0.1 See_Comment [Aut omated message] The = Basophils #) system which generated this result tra nsmitted reference range : <=0.2. The reference r christiano was not used to int erpret this result as normal/abnormal . [facility] CenterUhnfsbpZJETKSJMHK8604-22-63 06:27:00 Test Item Value Reference Range Interpretation Comments ACT (TEG) Rapid (test code = ACT (TEG) 121 s 86-118 Rapid) [facility] CenterHxkyfbwLNSIUHZOHA5131-55-29 06:27:00 Test Item Value Reference Range Interpretation Comments Split Point Rapid (test code = Split 0.6 min Point Rapid) [place] 884133-02-27 06:27:00 Test Item Value Reference Range Interpretation Comments R-time Rapid (test code = R-time 0.8 min 0.4-0.7 Rapid) [place] 884133-02-27 06:27:00 Test Item Value Reference Range Interpretation Comments K-time Rapid (test code = K-time 0.8 min 0.6-2.3 Rapid) [place] [address]-02-27 06:27:00 Test Item Value Reference Range Interpretation Comments Angle Rapid (test code = Angle 79 degrees 64-80 Rapid) [place] [address]-02-27 06:27:00 Test Item Value Reference Range Interpretation Comments Max Amplitude Rapid (test code = Max 71 mm 52-71 Amplitude Rapid) [place] [address]-02-27 06:27:00 Test Item Value Reference Range Interpretation Comments G-value Rapid (test code = G-value 12.1 5.0-11.6 Rapid) [place] [address]-02-27 06:27:00 Test Item Value Reference Range Interpretation Comments Estimated % Lysis Rapid 0.0 See_Comment [Au tomated message] The (test code = Estimated syste m which generated % Lysis Rapid) this result t ransmitted reference range : <=7.5. The reference r christiano was not used to int erpret this result as normal/abnormal . [facility] CenterFcqyhjkCRXLNCSVEG3317-82-02 06:27:00 Test Item Value Reference Range Interpretation Comments RBC Morph (test code = Normal (11/27/22 12:27 RBC Morph) AM) [place] [address]-02-27 06:27:00 Test Item Value Reference Range Interpretation Comments Plt Morph (test code = Normal (11/27/22 12:27 Plt Morph) AM) [place] [address]-02-27 06:27:00 Test Item Value Reference Range Interpretation Comments Basophils # (test code 0.1 See_Comment [Aut omated message] The = Basophils #) system which generated this result tra nsmitted reference range : <=0.2. The reference r christiano was not used to int erpret this result as normal/abnormal . [facility]2023-02-27 06:27:00 Test Item Value Reference Range Interpretation Comments Glucose Lvl (test code = Glucose Lvl) 85 70-99 [place] 608593-02-27 06:27:00 Test Item Value Reference Range Interpretation Comments BUN (test code = BUN) 28 7-22 [facility]2023-02-27 06:27:00 Test Item Value Reference Range Interpretation Comments Creatinine Lvl (test code = Creatinine 2.19 0.50-1.40 Lvl) [facility]2023-02-27 06:27:00 Test Item Value Reference Range Interpretation Comments Sodium Lvl (test code = Sodium Lvl) 143 135-145 [facility]2023-02-27 06:27:00 Test Item Value Reference Range Interpretation Comments Potassium Lvl (test code = Potassium 4.3 3.5-5.1 Lvl) [facility]2023-02-27 06:27:00 Test Item Value Reference Range Interpretation Comments Chloride Lvl (test code = Chloride Lvl) 110 95-109 [facility]2023-02-27 06:27:00 Test Item Value Reference Range Interpretation Comments CO2 (test code = CO2) 27 24-32 [facility]2023-02-27 06:27:00 Test Item Value Reference Range Interpretation Comments Calcium Lvl (test code = Calcium Lvl) 8.1 8.5-10.5 [facility]2023-02-27 06:27:00 Test Item Value Reference Range Interpretation Comments AGAP (test code = AGAP) 10.3 10.0-20.0 [facility]2023-02-27 06:27:00 Test Item Value Reference Range Interpretation Comments eGFR (test code = eGFR) 22 [place] 608593-02-27 06:27:00 Test Item Value Reference Range Interpretation Comments Total Protein (test code = Total 6.6 6.4-8.4 Protein) [facility]2023-02-27 06:27:00 Test Item Value Reference Range Interpretation Comments Albumin Lvl (test code = Albumin Lvl) 3.0 3.5-5.0 [place] 608593-02-27 06:27:00 Test Item Value Reference Range Interpretation Comments Globulin (test code = Globulin) 3.6 2.7-4.2 [facility] [id number] 06:27:00 Test Item Value Reference Range Interpretation Comments A/G Ratio (test code = A/G Ratio) 0.8 1 0.7-1.6 [place] 608593-02-27 06:27:00 Test Item Value Reference Range Interpretation Comments ALANINE AMINOTRANSFERASE 21 See_Comment [A utomated message] (test code = ALANINE The sys tem which AMINOTRANSFERASE) generated this result transmitted ref erence range: <=65. Th e reference range was not used to int erpret this result as normal/abnormal . [facility] [id number] 06:27:00 Test Item Value Reference Range Interpretation Comments AST (test code = AST) 17 See_Comment [Auto mated message] The system which ge nerated this result transmit sheba reference range : <=37. The reference range was not used to interpr et this result as edy l/abnormal. [facility] [id number] 06:27:00 Test Item Value Reference Range Interpretation Comments Alk Phos (test code = Alk Phos) 84 39-136 [facility] IUAKP9536-20-34 06:27:00 Test Item Value Reference Range Interpretation Comments Bili Total (test code = Bili Total) 0.3 0.2-1.3 [place] 608593-02-27 06:27:00 Test Item Value Reference Range Interpretation Comments Bili Direct (test code no gt See_Comment [Aut omated message] The = Bili Direct) system which generated this result tra nsmitted reference range : <=0.3. The reference r christiano was not used to int erpret this result as edy l/abnormal. [facility] [id number] 06:27:00 Test Item Value Reference Range Interpretation Comments Bili Indirect Unable to See_Comment [Automated (test code = Bili Calculate message] T he system Indirect) which generated this result transmitted reference range : <=1.0. The reference range was not used to interpret this result as normal/abnormal . [facility] OZHZG1022-07-29 06:27:00 Test Item Value Reference Range Interpretation Comments Lactic Acid Lvl (test code = Lactic 0.5 0.5-2.2 Acid Lvl) [place] 809593-02-27 06:27:00 Test Item Value Reference Range Interpretation Comments Total Protein (test code = Total 6.6 6.4-8.4 Protein) [facility] CenterHvhmuaiMXMTQRTNC0851-13-46 06:27:00 Test Item Value Reference Range Interpretation Comments Albumin Lvl (test code = Albumin Lvl) 3.0 3.5-5.0 [facility] CenterMsazrpyPMFUOCSOH6582-14-41 06:27:00 Test Item Value Reference Range Interpretation Comments Globulin (test code = Globulin) 3.6 2.7-4.2 [facility] CenterZdvvqrsVAZHVCAJX9632-77-92 06:27:00 Test Item Value Reference Range Interpretation Comments A/G Ratio (test code = A/G Ratio) 0.8 1 0.7-1.6 [facility] CenterHqdsdydJBWFOXSFT6982-93-82 06:27:00 Test Item Value Reference Range Interpretation Comments ALANINE AMINOTRANSFERASE 21 See_Comment [A utomated message] (test code = ALANINE The sys tem which AMINOTRANSFERASE) generated this result transmitted ref erence range: <=65. Th e reference range was not used to int erpret this result as normal/abnormal . [facility] CenterDsdytbdXQGXPPYLN0389-58-38 06:27:00 Test Item Value Reference Range Interpretation Comments AST (test code = AST) 17 See_Comment [Auto mated message] The system which ge nerated this result transmit sheba reference range : <=37. The reference range was not used to interpr et this result as edy l/abnormal. [facility] CenterAfksecvREFWORAGQ2320-35-50 06:27:00 Test Item Value Reference Range Interpretation Comments Alk Phos (test code = Alk Phos) 84 39-136 [facility] CenterOziutugEQLBFCLHQ7915-86-85 06:27:00 Test Item Value Reference Range Interpretation Comments Bili Total (test code = Bili Total) 0.3 0.2-1.3 [facility] CenterLfssjxuXIFYSHUKN1180-03-02 06:27:00 Test Item Value Reference Range Interpretation Comments Bili Direct (test code no gt See_Comment [Aut omated message] The = Bili Direct) system which generated this result tra nsmitted reference range : <=0.3. The reference r christiano was not used to int erpret this result as edy l/abnormal. [facility]HjefcgvLJYLTJCSN6116-53-62 06:27:00 Test Item Value Reference Range Interpretation Comments Bili Indirect Unable to See_Comment [Automated (test code = Bili Calculate message] T he system Indirect) which generated this result transmitted reference range : <=1.0. The reference range was not used to interpret this result as normal/abnormal . [facility] CenterOlzinhoAVAYDIQKZ8657-33-62 06:27:00 Test Item Value Reference Range Interpretation Comments pH Justin (test code = pH Justin) 7.29 1 7.28-7.42 [facility] CenterGffruhzJUPPJGHSV2357-15-00 06:27:00 Test Item Value Reference Range Interpretation Comments pCO2 Justin (test code = pCO2 Justin) 65 38-52 [facility] CenterFfcqufcQQZSNMSKF1617-01-81 06:27:00 Test Item Value Reference Range Interpretation Comments pO2 Justin (test code = pO2 Justin) 37 20-49 [facility] CenterYmpxycwWDVOOGHWK8574-77-91 06:27:00 Test Item Value Reference Range Interpretation Comments HCO3 Justin (test code = HCO3 Justin) 31 22-26 [facility] CenterLzmtckhXEOJIGTUF9561-95-30 06:27:00 Test Item Value Reference Range Interpretation Comments BE Justin (test code = BE Justin) 3 -2-2 [facility] CenterYgmhdmlRLSIVJXHM6081-10-45 06:27:00 Test Item Value Reference Range Interpretation Comments O2 Sat Justin (calc) (test code = O2 Sat 63.0 40.0-70.0 Justin (calc)) [facility] CenterZedcjneAAMYQOLVM1923-24-95 06:27:00 Test Item Value Reference Range Interpretation Comments Temp Justin (test code = Temp Justin) 37.0 [facility] CenterDqjnbctGKIOITYAA8891-83-62 06:27:00 Test Item Value Reference Range Interpretation Comments Lactic Acid Lvl (test code = Lactic 0.5 0.5-2.2 Acid Lvl) [facility] CenterQyjouniHEASJCPZC5808-20-61 06:27:00 Test Item Value Reference Range Interpretation Comments TSH (test code = TSH) 0.403 0.360-3.740 [facility] CenterDjwnxfcEXKKMDZCLE6497-60-19 06:27:00 Test Item Value Reference Range Interpretation Comments WBC X 10x3 (test code = WBC X 10x3) 5.9 3.7-10.4 [place] 884133-02-27 06:27:00 Test Item Value Reference Range Interpretation Comments RBC X 10x6 (test code = RBC X 10x6) 3.67 4.20-5.40 [place] 884133-02-27 06:27:00 Test Item Value Reference Range Interpretation Comments Hgb (test code = Hgb) 10.7 12.0-16.0 [facility] CenterKmecewqYSRCERWPMJ4067-89-34 06:27:00 Test Item Value Reference Range Interpretation Comments Hct (test code = Hct) 33.5 36.0-48.0 [facility] CenterYnxmpkgGCHUONWRMN7519-46-88 06:27:00 Test Item Value Reference Range Interpretation Comments MCV (test code = MCV) 91.4 80.0-98.0 [facility] CenterCgtxefxHITTUKOFCT1303-25-98 06:27:00 Test Item Value Reference Range Interpretation Comments MCH (test code = MCH) 29.3 pg 27.0-31.0 [facility] CenterPcturqiKTUQPJKTIL9306-83-94 06:27:00 Test Item Value Reference Range Interpretation Comments MCHC (test code = MCHC) 32.0 32.0-36.0 [facility] CenterVytzytoASGWUJYEPT9042-05-96 06:27:00 Test Item Value Reference Range Interpretation Comments RDW (test code = RDW) 13.7 11.5-14.5 [facility] CenterGmwktqrVAIDRFISDW3620-52-13 06:27:00 Test Item Value Reference Range Interpretation Comments Platelet (test code = Platelet) 139 133-450 [facility] CenterWeynknbZDKTBYUDEU1991-55-61 06:27:00 Test Item Value Reference Range Interpretation Comments MPV (test code = MPV) 7.5 7.4-10.4 [place] 884133-02-27 06:27:00 Test Item Value Reference Range Interpretation Comments ACT (TEG) Rapid (test code = ACT (TEG) 121 s 86-118 Rapid) [facility] CenterCtdtbkpPAXPYLKHKM8313-26-31 06:27:00 Test Item Value Reference Range Interpretation Comments Split Point Rapid (test code = Split 0.6 min Point Rapid) [place] 884133-02-27 06:27:00 Test Item Value Reference Range Interpretation Comments R-time Rapid (test code = R-time 0.8 min 0.4-0.7 Rapid) [facility] CenterXwjhfzpFRRXRXGODZ7888-06-71 06:27:00 Test Item Value Reference Range Interpretation Comments K-time Rapid (test code = K-time 0.8 min 0.6-2.3 Rapid) [place] [address]-02-27 06:27:00 Test Item Value Reference Range Interpretation Comments Angle Rapid (test code = Angle 79 degrees 64-80 Rapid) [place] [address]-02-27 06:27:00 Test Item Value Reference Range Interpretation Comments Max Amplitude Rapid (test code = Max 71 mm 52-71 Amplitude Rapid) [place] [address]-02-27 06:27:00 Test Item Value Reference Range Interpretation Comments G-value Rapid (test code = G-value 12.1 5.0-11.6 Rapid) [place] [address]-02-27 06:27:00 Test Item Value Reference Range Interpretation Comments Estimated % Lysis Rapid 0.0 See_Comment [Au tomated message] The (test code = Estimated syste m which generated % Lysis Rapid) this result t ransmitted reference range : <=7.5. The reference r christiano was not used to int erpret this result as normal/abnormal . [place] 884133-02-27:27:00 Test Item Value Reference Range Interpretation Comments RBC Morph (test code = Normal (11/27/22 12:27 RBC Morph) AM) [place] [address]-02-27 06:27:00 Test Item Value Reference Range Interpretation Comments Plt Morph (test code = Normal (11/27/22 12:27 Plt Morph) AM) [place] [address]-02-27 06:27:00 Test Item Value Reference Range Interpretation Comments Segs (test code = Segs) 60.1 45.0-75.0 [place] [address]-02-27 06:27:00 Test Item Value Reference Range Interpretation Comments Lymphocytes (test code = Lymphocytes) 23.9 20.0-40.0 [place] [address]-02-27 06:27:00 Test Item Value Reference Range Interpretation Comments Monocytes (test code = Monocytes) 9.6 2.0-12.0 [place] [address]-02-27 06:27:00 Test Item Value Reference Range Interpretation Comments Eosinophils (test code = 5.2 See_Comment [A utomated message] The Eosinophils) system which ge nerated this result tra nsmitted reference range : <=4.0. The reference r christiano was not used to int erpret this result as normal/abnormal . [facility] CenterIejgneiJSEBMALWCO5205-59-47 06:27:00 Test Item Value Reference Range Interpretation Comments Basophils (test code = 1.2 See_Comment [Aut omated message] The Basophils) system which ge nerated this result tra nsmitted reference range : <=1.0. The reference r christiano was not used to int erpret this result as normal/abnormal . [facility] CenterBmxrwfyZHHMCNSZLB3328-04-82 06:27:00 Test Item Value Reference Range Interpretation Comments Neutrophils # (test code = Neutrophils 3.5 1.5-8.1 #) [facility] CenterCnqhmmpXDOSTKWXAF0374-32-52 06:27:00 Test Item Value Reference Range Interpretation Comments Lymphocytes # (test code = Lymphocytes 1.4 1.0-5.5 #) [facility] CenterBkmcwriDZVTQJHKLK6245-92-17 06:27:00 Test Item Value Reference Range Interpretation Comments Monocytes # (test code 0.6 See_Comment [Aut omated message] The = Monocytes #) system which generated this result tra nsmitted reference range : <=0.8. The reference r christiano was not used to int erpret this result as normal/abnormal . [facility] CenterArpjecyAJKPTDOWAT5714-74-81 06:27:00 Test Item Value Reference Range Interpretation Comments Eosinophils # (test code 0.3 See_Comment [A utomated message] The = Eosinophils #) system whic h generated this result tra nsmitted reference range : <=0.5. The reference r christiano was not used to int erpret this result as normal/abnormal . [facility] CenterFywyhtwILRXEIGAAN1188-03-23 06:27:00 Test Item Value Reference Range Interpretation Comments Basophils # (test code 0.1 See_Comment [Aut omated message] The = Basophils #) system which generated this result tra nsmitted reference range : <=0.2. The reference r christiano was not used to int erpret this result as normal/abnormal . [facility] CenterUpfnbjmDDBKNMLWGQ2443-95-85 06:27:00 Test Item Value Reference Range Interpretation Comments ACT (TEG) Rapid (test code = ACT (TEG) 121 s 86-118 Rapid) [facility] CenterNyhdgevPFEIOKXPJW4664-25-63 06:27:00 Test Item Value Reference Range Interpretation Comments Split Point Rapid (test code = Split 0.6 min Point Rapid) [facility] CenterEisrkheICLAPIOKMR4830-63-12 06:27:00 Test Item Value Reference Range Interpretation Comments R-time Rapid (test code = R-time 0.8 min 0.4-0.7 Rapid) [facility] CenterZcjouxmINNRXQEISC9600-34-24 06:27:00 Test Item Value Reference Range Interpretation Comments K-time Rapid (test code = K-time 0.8 min 0.6-2.3 Rapid) [facility] CenterYhmlzqyCKUAXMRXZQ0782-10-82 06:27:00 Test Item Value Reference Range Interpretation Comments Angle Rapid (test code = Angle 79 degrees 64-80 Rapid) [facility] CenterStwwjcqWXTGOHLFRI7928-48-43 06:27:00 Test Item Value Reference Range Interpretation Comments Max Amplitude Rapid (test code = Max 71 mm 52-71 Amplitude Rapid) [facility] CenterLklhetsAYAGVQEPWA3942-49-57 06:27:00 Test Item Value Reference Range Interpretation Comments G-value Rapid (test code = G-value 12.1 5.0-11.6 Rapid) [facility] CenterPfmostlMLBWMDBDTW2741-63-64 06:27:00 Test Item Value Reference Range Interpretation Comments Estimated % Lysis Rapid 0.0 See_Comment [Au tomated message] The (test code = Estimated syste m which generated % Lysis Rapid) this result t ransmitted reference range : <=7.5. The reference r christiano was not used to int erpret this result as normal/abnormal . [facility] CenterYcljgzwPJVMHRSKTM0924-31-49 06:27:00 Test Item Value Reference Range Interpretation Comments RBC Morph (test code = Normal (11/27/22 12:27 RBC Morph) AM) [facility] CenterPcmxhgqUSDXJATLTU9229-96-69 06:27:00 Test Item Value Reference Range Interpretation Comments Plt Morph (test code = Normal (11/27/22 12:27 Plt Morph) AM) [facility] CenterKunnonpNAOFEYDZGV2299-78-48 06:27:00 Test Item Value Reference Range Interpretation Comments Basophils # (test code 0.1 See_Comment [Aut omated message] The = Basophils #) system which generated this result tra nsmitted reference range : <=0.2. The reference r christiano was not used to int erpret this result as normal/abnormal . [facility] CenterNlehybxNHILFSRUT3656-88-64 13:17:00 Test Item Value Reference Range Interpretation Comments Glucose Lvl (test code = Glucose Lvl) 65 70-99 [facility] CenterAerbrevFDDVBBCSP4862-66-26 13:17:00 Test Item Value Reference Range Interpretation Comments BUN (test code = BUN) 39 7-22 [facility] CenterVszdumgSRKDYKPSA2894-98-68 13:17:00 Test Item Value Reference Range Interpretation Comments Creatinine Lvl (test code = Creatinine 2.03 0.50-1.40 Lvl) [facility] CenterImaetnvIXJNERODB1603-54-68 13:17:00 Test Item Value Reference Range Interpretation Comments Sodium Lvl (test code = Sodium Lvl) 139 135-145 [facility] CenterOojjyijVUCHACQGF1416-83-67 13:17:00 Test Item Value Reference Range Interpretation Comments Potassium Lvl (test code = Potassium 4.7 3.5-5.1 Lvl) [facility] CenterPlwopwnRFCHPBPCY5966-53-44 13:17:00 Test Item Value Reference Range Interpretation Comments Chloride Lvl (test code = Chloride Lvl) 107 95-109 [facility] CenterBmnrvsrGGAGCXOCP7012-72-35 13:17:00 Test Item Value Reference Range Interpretation Comments CO2 (test code = CO2) 26 24-32 [facility] CenterDrtobhvNWTLLSTOE1778-26-61 13:17:00 Test Item Value Reference Range Interpretation Comments Calcium Lvl (test code = Calcium Lvl) 8.1 8.5-10.5 [facility] CenterShnxjhrXURIWIDOS1629-85-03 13:17:00 Test Item Value Reference Range Interpretation Comments AGAP (test code = AGAP) 10.7 10.0-20.0 [facility] CenterVgrjhnqYMUVMLWUN9869-39-11 13:17:00 Test Item Value Reference Range Interpretation Comments eGFR (test code = eGFR) 24 [facility] CenterOjizqvrRDSDAVPDT5046-73-50 13:17:00 Test Item Value Reference Range Interpretation Comments Ca Ion WB (test code = Ca Ion WB) 1.06 1.05-1.25 [place] 809593-02-22 13:17:00 Test Item Value Reference Range Interpretation Comments Ca Ion at pH 7.4 WB (test code = Ca Ion 1.03 1.05-1.25 at pH 7.4 WB) [facility] CenterRhkbuwdCULWDXNKX0484-62-56 13:17:00 Test Item Value Reference Range Interpretation Comments Magnesium Lvl (test code = Magnesium 2.7 1.8-2.4 Lvl) [facility]okgxJHWLYMGVA2416-72-02 13:17:00 Test Item Value Reference Range Interpretation Comments Phosphorus (test code = Phosphorus) 3.9 2.5-4.5 [facility] CenterYiewhhlXLUBFBFDUZ8537-84-74 13:17:00 Test Item Value Reference Range Interpretation Comments Segs (test code = Segs) 54.4 45.0-75.0 [facility] CenterTkqasypOZPOZKAVMU3382-51-46 13:17:00 Test Item Value Reference Range Interpretation Comments Lymphocytes (test code = Lymphocytes) 29.3 20.0-40.0 [facility] CenterVvbqwabWTVKDXJUZA5629-48-73 13:17:00 Test Item Value Reference Range Interpretation Comments Monocytes (test code = Monocytes) 10.5 2.0-12.0 [facility] CenterAikjnnfIDBRGXRJES5646-18-53 13:17:00 Test Item Value Reference Range Interpretation Comments Eosinophils (test code = 5.0 See_Comment [A utomated message] The Eosinophils) system which ge nerated this result tra nsmitted reference range : <=4.0. The reference r christiano was not used to int erpret this result as normal/abnormal . [facility] CenterCspuwmeNLGAVIYRJT3168-12-91 13:17:00 Test Item Value Reference Range Interpretation Comments Basophils (test code = 0.8 See_Comment [Aut omated message] The Basophils) system which ge nerated this result tra nsmitted reference range : <=1.0. The reference r christiano was not used to int erpret this result as normal/abnormal . [facility] CenterPmvylknRCBDZPKDWV6900-96-63 13:17:00 Test Item Value Reference Range Interpretation Comments Neutrophils # (test code = Neutrophils 4.1 1.5-8.1 #) [facility] CenterVipdxpnGEPNAIZWVP8490-93-30 13:17:00 Test Item Value Reference Range Interpretation Comments Lymphocytes # (test code = Lymphocytes 2.2 1.0-5.5 #) [facility] CenterYklpixoRANFZFSVYT3675-55-76 13:17:00 Test Item Value Reference Range Interpretation Comments Monocytes # (test code 0.8 See_Comment [Aut omated message] The = Monocytes #) system which generated this result tra nsmitted reference range : <=0.8. The reference r christiano was not used to int erpret this result as normal/abnormal . [place] 884133-02-22 13:17:00 Test Item Value Reference Range Interpretation Comments Eosinophils # (test code 0.4 See_Comment [A utomated message] The = Eosinophils #) system whic h generated this result tra nsmitted reference range : <=0.5. The reference r christiano was not used to int erpret this result as normal/abnormal . [place] 884133-02-22 13:17:00 Test Item Value Reference Range Interpretation Comments Basophils # (test code 0.1 See_Comment [Aut omated message] The = Basophils #) system which generated this result tra nsmitted reference range : <=0.2. The reference r christiano was not used to int erpret this result as normal/abnormal . [place] 884133-02-22 13:17:00 Test Item Value Reference Range Interpretation Comments WBC (test code = WBC) 7.5 3.7-10.4 [place] 884133-02-22 13:17:00 Test Item Value Reference Range Interpretation Comments RBC (test code = RBC) 3.30 4.20-5.40 [place] 884133-02-22 13:17:00 Test Item Value Reference Range Interpretation Comments Hgb (test code = Hgb) 9.9 12.0-16.0 [place] 884133-02-22 13:17:00 Test Item Value Reference Range Interpretation Comments Hct (test code = Hct) 30.3 36.0-48.0 [place] 884133-02-22 13:17:00 Test Item Value Reference Range Interpretation Comments MCV (test code = MCV) 91.8 80.0-98.0 [place] 884133-02-22 13:17:00 Test Item Value Reference Range Interpretation Comments MCH (test code = MCH) 30.0 pg 27.0-31.0 [place] 884133-02-22 13:17:00 Test Item Value Reference Range Interpretation Comments MCHC (test code = MCHC) 32.7 32.0-36.0 [place] [address]-02-22 13:17:00 Test Item Value Reference Range Interpretation Comments RDW (test code = RDW) 14.4 11.5-14.5 [place] 884133-02-22 13:17:00 Test Item Value Reference Range Interpretation Comments Platelet (test code = Platelet) 136 133-450 [facility]OwjbclxHNQGCVVPZG6810-93-87 13:17:00 Test Item Value Reference Range Interpretation Comments MPV (test code = MPV) 8.7 7.4-10.4 [facility] CenterXptyxmpSICWCOIOV6992-19-79 13:17:00 Test Item Value Reference Range Interpretation Comments Glucose Lvl (test code = Glucose Lvl) 65 70-99 [facility] CenterEetwveqONHIPHRVK1316-26-47 13:17:00 Test Item Value Reference Range Interpretation Comments BUN (test code = BUN) 39 7-22 [facility] CenterUemairwBXSQFTEFY0397-71-63 13:17:00 Test Item Value Reference Range Interpretation Comments Creatinine Lvl (test code = Creatinine 2.03 0.50-1.40 Lvl) [facility] CenterGfcxfyfEWDGIXDCT6247-72-20 13:17:00 Test Item Value Reference Range Interpretation Comments Sodium Lvl (test code = Sodium Lvl) 139 135-145 [facility] CenterHpmilsaCBYSPCYDZ4837-85-00 13:17:00 Test Item Value Reference Range Interpretation Comments Potassium Lvl (test code = Potassium 4.7 3.5-5.1 Lvl) [facility] CenterMgqkvprOMWWVAHWK6747-42-61 13:17:00 Test Item Value Reference Range Interpretation Comments Chloride Lvl (test code = Chloride Lvl) 107 95-109 [facility] CenterEmymptmBXNIQCNRV4428-23-71 13:17:00 Test Item Value Reference Range Interpretation Comments CO2 (test code = CO2) 26 24-32 [facility] CenterEcsrvqbXEOGECKQX0062-35-36 13:17:00 Test Item Value Reference Range Interpretation Comments Calcium Lvl (test code = Calcium Lvl) 8.1 8.5-10.5 [facility] CenterRyofcqfPUCRRLBYC1714-24-34 13:17:00 Test Item Value Reference Range Interpretation Comments AGAP (test code = AGAP) 10.7 10.0-20.0 [facility] CenterUjqqucdFBDVISOXT9088-07-79 13:17:00 Test Item Value Reference Range Interpretation Comments eGFR (test code = eGFR) 24 [facility] CenterPabhiuzBIUQPIVHS0151-26-83 13:17:00 Test Item Value Reference Range Interpretation Comments Ca Ion WB (test code = Ca Ion WB) 1.06 1.05-1.25 [place] 809593-02-22 13:17:00 Test Item Value Reference Range Interpretation Comments Ca Ion at pH 7.4 WB (test code = Ca Ion 1.03 1.05-1.25 at pH 7.4 WB) [facility] CenterIwtxdmvFSNMJKMZM1489-96-10 13:17:00 Test Item Value Reference Range Interpretation Comments Magnesium Lvl (test code = Magnesium 2.7 1.8-2.4 Lvl) [place] 809593-02-22 13:17:00 Test Item Value Reference Range Interpretation Comments Phosphorus (test code = Phosphorus) 3.9 2.5-4.5 [place] 884133-02-22 13:17:00 Test Item Value Reference Range Interpretation Comments Segs (test code = Segs) 54.4 45.0-75.0 [place] 884133-02-22 13:17:00 Test Item Value Reference Range Interpretation Comments Lymphocytes (test code = Lymphocytes) 29.3 20.0-40.0 [place] 884133-02-22 13:17:00 Test Item Value Reference Range Interpretation Comments Monocytes (test code = Monocytes) 10.5 2.0-12.0 [place] 884133-02-22 13:17:00 Test Item Value Reference Range Interpretation Comments Eosinophils (test code = 5.0 See_Comment [A utomated message] The Eosinophils) system which nerated this result tra nsmitted reference range : <=4.0. The reference r christiano was not used to int erpret this result as normal/abnormal . [facility] CenterXkajvveYZJTVNBNOA0531-99-33 13:17:00 Test Item Value Reference Range Interpretation Comments Basophils (test code = 0.8 See_Comment [Aut omated message] The Basophils) system which ge nerated this result tra nsmitted reference range : <=1.0. The reference r christiano was not used to int erpret this result as normal/abnormal . [place] 884133-02-22 13:17:00 Test Item Value Reference Range Interpretation Comments Neutrophils # (test code = Neutrophils 4.1 1.5-8.1 #) [place] 884133-02-22 13:17:00 Test Item Value Reference Range Interpretation Comments Lymphocytes # (test code = Lymphocytes 2.2 1.0-5.5 #) [place] 884133-02-22 13:17:00 Test Item Value Reference Range Interpretation Comments Monocytes # (test code 0.8 See_Comment [Aut omated message] The = Monocytes #) system which generated this result tra nsmitted reference range : <=0.8. The reference r christiano was not used to int erpret this result as normal/abnormal . [facility] CenterIzqkpcfGBUGJWJCTR7675-39-10 13:17:00 Test Item Value Reference Range Interpretation Comments Eosinophils # (test code 0.4 See_Comment [A utomated message] The = Eosinophils #) system whic h generated this result tra nsmitted reference range : <=0.5. The reference r christiano was not used to int erpret this result as normal/abnormal . [facility] CenterKouemfmCILXYQRZME9920-73-09 13:17:00 Test Item Value Reference Range Interpretation Comments Basophils # (test code 0.1 See_Comment [Aut omated message] The = Basophils #) system which generated this result tra nsmitted reference range : <=0.2. The reference r christiano was not used to int erpret this result as normal/abnormal . [facility] CenterFxtnswsKMPIYXTUHH0443-90-48 13:17:00 Test Item Value Reference Range Interpretation Comments WBC (test code = WBC) 7.5 3.7-10.4 [place] 884133-02-22 13:17:00 Test Item Value Reference Range Interpretation Comments RBC (test code = RBC) 3.30 4.20-5.40 [place] 884133-02-22 13:17:00 Test Item Value Reference Range Interpretation Comments Hgb (test code = Hgb) 9.9 12.0-16.0 [place] [address]-02-22 13:17:00 Test Item Value Reference Range Interpretation Comments Hct (test code = Hct) 30.3 36.0-48.0 [place] [address]-02-22 13:17:00 Test Item Value Reference Range Interpretation Comments MCV (test code = MCV) 91.8 80.0-98.0 [place] 884133-02-22 13:17:00 Test Item Value Reference Range Interpretation Comments MCH (test code = MCH) 30.0 pg 27.0-31.0 [place] [address]-02-22 13:17:00 Test Item Value Reference Range Interpretation Comments MCHC (test code = MCHC) 32.7 32.0-36.0 [place] [address]-02-22 13:17:00 Test Item Value Reference Range Interpretation Comments RDW (test code = RDW) 14.4 11.5-14.5 [place] [address]-02-22 13:17:00 Test Item Value Reference Range Interpretation Comments Platelet (test code = Platelet) 136 133-450 [place] [address]-02-22 13:17:00 Test Item Value Reference Range Interpretation Comments MPV (test code = MPV) 8.7 7.4-10.4 [place] 608593-02-22 13:17:00 Test Item Value Reference Range Interpretation Comments Glucose Lvl (test code = Glucose Lvl) 65 70-99 [place] 608593-02-22 13:17:00 Test Item Value Reference Range Interpretation Comments BUN (test code = BUN) 39 7-22 [place] 608593-02-22 13:17:00 Test Item Value Reference Range Interpretation Comments Creatinine Lvl (test code = Creatinine 2.03 0.50-1.40 Lvl) [place] 608593-02-22 13:17:00 Test Item Value Reference Range Interpretation Comments Sodium Lvl (test code = Sodium Lvl) 139 135-145 [place] 608593-02-22 13:17:00 Test Item Value Reference Range Interpretation Comments Potassium Lvl (test code = Potassium 4.7 3.5-5.1 Lvl) [place] 608593-02-22 13:17:00 Test Item Value Reference Range Interpretation Comments Chloride Lvl (test code = Chloride Lvl) 107 95-109 [place] 608593-02-22 13:17:00 Test Item Value Reference Range Interpretation Comments CO2 (test code = CO2) 26 24-32 [place] 608593-02-22 13:17:00 Test Item Value Reference Range Interpretation Comments Calcium Lvl (test code = Calcium Lvl) 8.1 8.5-10.5 [place] 608593-02-22 13:17:00 Test Item Value Reference Range Interpretation Comments AGAP (test code = AGAP) 10.7 10.0-20.0 [facility]2023-02-22 13:17:00 Test Item Value Reference Range Interpretation Comments eGFR (test code = eGFR) 24 [facility]2023-02-22 13:17:00 Test Item Value Reference Range Interpretation Comments Magnesium Lvl (test code = Magnesium 2.7 1.8-2.4 Lvl) [place] 608593-02-22 13:17:00 Test Item Value Reference Range Interpretation Comments Phosphorus (test code = Phosphorus) 3.9 2.5-4.5 [place] 809593-02-22 13:17:00 Test Item Value Reference Range Interpretation Comments Glucose Lvl (test code = Glucose Lvl) 65 70-99 [place] [address]-02-22 13:17:00 Test Item Value Reference Range Interpretation Comments BUN (test code = BUN) 39 7-22 [place] 809593-02-22 13:17:00 Test Item Value Reference Range Interpretation Comments Creatinine Lvl (test code = Creatinine 2.03 0.50-1.40 Lvl) [facility]hmPOZKTRBZZ7375[facility]95[facility]10 13:17:00 Test Item Value Reference Range Interpretation Comments Sodium Lvl (test code = Sodium Lvl) 139 135-145 [facility] CenterPazrmwtPNEXXKBCV2065-46-72 13:17:00 Test Item Value Reference Range Interpretation Comments Potassium Lvl (test code = Potassium 4.7 3.5-5.1 Lvl) [facility] CenterTeufxsdZPQVXVBIA2275-67-66 13:17:00 Test Item Value Reference Range Interpretation Comments Chloride Lvl (test code = Chloride Lvl) 107 95-109 [place] 809593-02-22 13:17:00 Test Item Value Reference Range Interpretation Comments CO2 (test code = CO2) 26 24-32 [place] 809593-02-22 13:17:00 Test Item Value Reference Range Interpretation Comments Calcium Lvl (test code = Calcium Lvl) 8.1 8.5-10.5 [place] 809593-02-22 13:17:00 Test Item Value Reference Range Interpretation Comments AGAP (test code = AGAP) 10.7 10.0-20.0 [place] 809593-02-22 13:17:00 Test Item Value Reference Range Interpretation Comments eGFR (test code = eGFR) 24 [facility] CenterBwkctdsVDCKBWRKN5928-93-66 13:17:00 Test Item Value Reference Range Interpretation Comments Ca Ion WB (test code = Ca Ion WB) 1.06 1.05-1.25 [facility] CenterZlhweakRIBRPESGN4063-39-92 13:17:00 Test Item Value Reference Range Interpretation Comments Ca Ion at pH 7.4 WB (test code = Ca Ion 1.03 1.05-1.25 at pH 7.4 WB) [facility] CenterPjigmpnNUWCZZWRW4934-70-13 13:17:00 Test Item Value Reference Range Interpretation Comments Magnesium Lvl (test code = Magnesium 2.7 1.8-2.4 Lvl) [facility] CenterBezgzneSXMCARYCO6609-08-84 13:17:00 Test Item Value Reference Range Interpretation Comments Phosphorus (test code = Phosphorus) 3.9 2.5-4.5 [facility] CenterJagpsayKQHJYMWPVS0272-37-43 13:17:00 Test Item Value Reference Range Interpretation Comments Segs (test code = Segs) 54.4 45.0-75.0 [facility] CenterWktrmwdZVBOHYRYKM8325-16-59 13:17:00 Test Item Value Reference Range Interpretation Comments Lymphocytes (test code = Lymphocytes) 29.3 20.0-40.0 [facility] CenterPvwjvntBPQUQLDNUX0522-04-46 13:17:00 Test Item Value Reference Range Interpretation Comments Monocytes (test code = Monocytes) 10.5 2.0-12.0 [facility] CenterBeljyinOUTOPJIZHE3019-85-08 13:17:00 Test Item Value Reference Range Interpretation Comments Eosinophils (test code = 5.0 See_Comment [A utomated message] The Eosinophils) system which ge nerated this result tra nsmitted reference range : <=4.0. The reference r christiano was not used to int erpret this result as normal/abnormal . [facility] CenterEcviubdTZMNGNSNZY6236-67-83 13:17:00 Test Item Value Reference Range Interpretation Comments Basophils (test code = 0.8 See_Comment [Aut omated message] The Basophils) system which ge nerated this result tra nsmitted reference range : <=1.0. The reference r christiano was not used to int erpret this result as normal/abnormal . [place] 884133-02-22 13:17:00 Test Item Value Reference Range Interpretation Comments Neutrophils # (test code = Neutrophils 4.1 1.5-8.1 #) [place] 884133-02-22 13:17:00 Test Item Value Reference Range Interpretation Comments Lymphocytes # (test code = Lymphocytes 2.2 1.0-5.5 #) [place] [address]-02-22 13:17:00 Test Item Value Reference Range Interpretation Comments Monocytes # (test code 0.8 See_Comment [Aut omated message] The = Monocytes #) system which generated this result tra nsmitted reference range : <=0.8. The reference r christiano was not used to int erpret this result as normal/abnormal . [place] 884133-02-22 13:17:00 Test Item Value Reference Range Interpretation Comments Eosinophils # (test code 0.4 See_Comment [A utomated message] The = Eosinophils #) system whic h generated this result tra nsmitted reference range : <=0.5. The reference r christiano was not used to int erpret this result as normal/abnormal . [place] 884133-02-22 13:17:00 Test Item Value Reference Range Interpretation Comments Basophils # (test code 0.1 See_Comment [Aut omated message] The = Basophils #) system which generated this result tra nsmitted reference range : <=0.2. The reference r christiano was not used to int erpret this result as normal/abnormal . [place] 884133-02-22 13:17:00 Test Item Value Reference Range Interpretation Comments WBC (test code = WBC) 7.5 3.7-10.4 [place] 884133-02-22 13:17:00 Test Item Value Reference Range Interpretation Comments RBC (test code = RBC) 3.30 4.20-5.40 [place] [address]-02-22 13:17:00 Test Item Value Reference Range Interpretation Comments Hgb (test code = Hgb) 9.9 12.0-16.0 [place] [address]-02-22 13:17:00 Test Item Value Reference Range Interpretation Comments Hct (test code = Hct) 30.3 36.0-48.0 [place] [address]-02-22 13:17:00 Test Item Value Reference Range Interpretation Comments MCV (test code = MCV) 91.8 80.0-98.0 [place] 884133-02-22 13:17:00 Test Item Value Reference Range Interpretation Comments MCH (test code = MCH) 30.0 pg 27.0-31.0 [facility] CenterMtthabvTLGCUZLFFB3026-11-65 13:17:00 Test Item Value Reference Range Interpretation Comments MCHC (test code = MCHC) 32.7 32.0-36.0 [facility] CenterWbdrejdSLJOLEZRUI4511-47-06 13:17:00 Test Item Value Reference Range Interpretation Comments RDW (test code = RDW) 14.4 11.5-14.5 [place] 884133-02-22 13:17:00 Test Item Value Reference Range Interpretation Comments Platelet (test code = Platelet) 136 133-450 [facility] CenterUvtfgckTCPXXBAEVC5790-51-25 13:17:00 Test Item Value Reference Range Interpretation Comments MPV (test code = MPV) 8.7 7.4-10.4 [place] 884133-02-22 13:17:00 Test Item Value Reference Range Interpretation Comments Segs (test code = Segs) 54.4 45.0-75.0 [place] 884133-02-22 13:17:00 Test Item Value Reference Range Interpretation Comments Lymphocytes (test code = Lymphocytes) 29.3 20.0-40.0 [place] 884133-02-22 13:17:00 Test Item Value Reference Range Interpretation Comments Monocytes (test code = Monocytes) 10.5 2.0-12.0 [place] 884133-02-22 13:17:00 Test Item Value Reference Range Interpretation Comments Eosinophils (test code = 5.0 See_Comment [A utomated message] The Eosinophils) system which ge nerated this result tra nsmitted reference range : <=4.0. The reference r christiano was not used to int erpret this result as normal/abnormal . [facility] CenterVglwnbqQEWMSOAKTY8781-66-00 13:17:00 Test Item Value Reference Range Interpretation Comments Basophils (test code = 0.8 See_Comment [Aut omated message] The Basophils) system which ge nerated this result tra nsmitted reference range : <=1.0. The reference r christiano was not used to int erpret this result as normal/abnormal . [place] [address]-02-22 13:17:00 Test Item Value Reference Range Interpretation Comments Neutrophils # (test code = Neutrophils 4.1 1.5-8.1 #) [facility] CenterEfiltgwHNUEXVXNUQ9950-41-57 13:17:00 Test Item Value Reference Range Interpretation Comments Lymphocytes # (test code = Lymphocytes 2.2 1.0-5.5 #) [place] 884133-02-22 13:17:00 Test Item Value Reference Range Interpretation Comments Monocytes # (test code 0.8 See_Comment [Aut omated message] The = Monocytes #) system which generated this result tra nsmitted reference range : <=0.8. The reference r christiano was not used to int erpret this result as normal/abnormal . [place] 884133-02-22 13:17:00 Test Item Value Reference Range Interpretation Comments Eosinophils # (test code 0.4 See_Comment [A utomated message] The = Eosinophils #) system whic h generated this result tra nsmitted reference range : <=0.5. The reference r christiano was not used to int erpret this result as normal/abnormal . [facility] CenterYgypjbdMFGLFISTIL6470-56-73 13:17:00 Test Item Value Reference Range Interpretation Comments Basophils # (test code 0.1 See_Comment [Aut omated message] The = Basophils #) system which generated this result tra nsmitted reference range : <=0.2. The reference r christiano was not used to int erpret this result as normal/abnormal . [facility] CenterMnfvhnaFNPDUZNKBA8775-45-71 13:17:00 Test Item Value Reference Range Interpretation Comments WBC (test code = WBC) 7.5 3.7-10.4 [place] 884133-02-22 13:17:00 Test Item Value Reference Range Interpretation Comments RBC (test code = RBC) 3.30 4.20-5.40 [place] [address]-02-22 13:17:00 Test Item Value Reference Range Interpretation Comments Hgb (test code = Hgb) 9.9 12.0-16.0 [place] [address]-02-22 13:17:00 Test Item Value Reference Range Interpretation Comments Hct (test code = Hct) 30.3 36.0-48.0 [place] 884133-02-22 13:17:00 Test Item Value Reference Range Interpretation Comments MCV (test code = MCV) 91.8 80.0-98.0 [place] 884133-02-22 13:17:00 Test Item Value Reference Range Interpretation Comments MCH (test code = MCH) 30.0 pg 27.0-31.0 [place] 884133-02-22 13:17:00 Test Item Value Reference Range Interpretation Comments MCHC (test code = MCHC) 32.7 32.0-36.0 [facility] CenterQepuhfwTLLGSCMJIW8019-06-50 13:17:00 Test Item Value Reference Range Interpretation Comments RDW (test code = RDW) 14.4 11.5-14.5 [place] 884133-02-22 13:17:00 Test Item Value Reference Range Interpretation Comments Platelet (test code = Platelet) 136 133-450 [facility] CenterGyqgykzLTJGBBFNPY6722-70-22 13:17:00 Test Item Value Reference Range Interpretation Comments MPV (test code = MPV) 8.7 7.4-10.4 [facility]2023-02-22 13:17:00 Test Item Value Reference Range Interpretation Comments Ca Ion WB (test code = Ca Ion WB) 1.06 1.05-1.25 [facility]2023-02-22 13:17:00 Test Item Value Reference Range Interpretation Comments Ca Ion at pH 7.4 WB (test code = Ca Ion 1.03 1.05-1.25 at pH 7.4 WB) [facility]2023-02-22 13:17:00 Test Item Value Reference Range Interpretation Comments Glucose Lvl (test code = Glucose Lvl) 65 70-99 [facility]2023-02-22 13:17:00 Test Item Value Reference Range Interpretation Comments BUN (test code = BUN) 39 7-22 [place] 608593-02-22 13:17:00 Test Item Value Reference Range Interpretation Comments Creatinine Lvl (test code = Creatinine 2.03 0.50-1.40 Lvl) [facility]2023-02-22 13:17:00 Test Item Value Reference Range Interpretation Comments Sodium Lvl (test code = Sodium Lvl) 139 135-145 [place] 608593-02-22 13:17:00 Test Item Value Reference Range Interpretation Comments Potassium Lvl (test code = Potassium 4.7 3.5-5.1 Lvl) [place] 608593-02-22 13:17:00 Test Item Value Reference Range Interpretation Comments Chloride Lvl (test code = Chloride Lvl) 107 95-109 [place] 608593-02-22 13:17:00 Test Item Value Reference Range Interpretation Comments CO2 (test code = CO2) 26 24-32 [place] 608593-02-22 13:17:00 Test Item Value Reference Range Interpretation Comments Calcium Lvl (test code = Calcium Lvl) 8.1 8.5-10.5 [place] 608593-02-22 13:17:00 Test Item Value Reference Range Interpretation Comments AGAP (test code = AGAP) 10.7 10.0-20.0 [place] 608593-02-22 13:17:00 Test Item Value Reference Range Interpretation Comments eGFR (test code = eGFR) 24 [place] 608593-02-22 13:17:00 Test Item Value Reference Range Interpretation Comments Magnesium Lvl (test code = Magnesium 2.7 1.8-2.4 Lvl) [facility]2023-02-22 13:17:00 Test Item Value Reference Range Interpretation Comments Phosphorus (test code = Phosphorus) 3.9 2.5-4.5 [facility] CenterYvnejgtESJSYQREQ8917-53-46 13:17:00 Test Item Value Reference Range Interpretation Comments Glucose Lvl (test code = Glucose Lvl) 65 70-99 [place] 809593-02-22 13:17:00 Test Item Value Reference Range Interpretation Comments BUN (test code = BUN) 39 7-22 [place] [address]-02-22 13:17:00 Test Item Value Reference Range Interpretation Comments Creatinine Lvl (test code = Creatinine 2.03 0.50-1.40 Lvl) [place] 809593-02-22 13:17:00 Test Item Value Reference Range Interpretation Comments Sodium Lvl (test code = Sodium Lvl) 139 135-145 [place] 809593-02-22 13:17:00 Test Item Value Reference Range Interpretation Comments Potassium Lvl (test code = Potassium 4.7 3.5-5.1 Lvl) [facility] CenterEafqkozWTQQSAUDK5614-57-90 13:17:00 Test Item Value Reference Range Interpretation Comments Chloride Lvl (test code = Chloride Lvl) 107 95-109 [facility] CenterFmcnxtnFOMVELPME3750-65-42 13:17:00 Test Item Value Reference Range Interpretation Comments CO2 (test code = CO2) 26 24-32 [facility] CenterFeckqetMVVICQGQC6315-19-90 13:17:00 Test Item Value Reference Range Interpretation Comments Calcium Lvl (test code = Calcium Lvl) 8.1 8.5-10.5 [facility] CenterIeijwvpAYRENVEHA1145-98-17 13:17:00 Test Item Value Reference Range Interpretation Comments AGAP (test code = AGAP) 10.7 10.0-20.0 [facility] CenterXlhelalESTKKBJJX7883-63-83 13:17:00 Test Item Value Reference Range Interpretation Comments eGFR (test code = eGFR) 24 [facility] CenterTwqjsswBEAOFBADA8776-40-07 13:17:00 Test Item Value Reference Range Interpretation Comments Ca Ion WB (test code = Ca Ion WB) 1.06 1.05-1.25 [facility] CenterSliweezSYGNZBRCO1827-92-59 13:17:00 Test Item Value Reference Range Interpretation Comments Ca Ion at pH 7.4 WB (test code = Ca Ion 1.03 1.05-1.25 at pH 7.4 WB) [facility] CenterDpqcjsaCXFTLVZCY9570-59-09 13:17:00 Test Item Value Reference Range Interpretation Comments Magnesium Lvl (test code = Magnesium 2.7 1.8-2.4 Lvl) [facility] CenterGwmslldIHMZISWLP1454-78-27 13:17:00 Test Item Value Reference Range Interpretation Comments Phosphorus (test code = Phosphorus) 3.9 2.5-4.5 [facility] CenterLxusgerFMDFLKWVCS3395-92-66 13:17:00 Test Item Value Reference Range Interpretation Comments Segs (test code = Segs) 54.4 45.0-75.0 [place] 884133-02-22 13:17:00 Test Item Value Reference Range Interpretation Comments Lymphocytes (test code = Lymphocytes) 29.3 20.0-40.0 [place] 884133-02-22 13:17:00 Test Item Value Reference Range Interpretation Comments Monocytes (test code = Monocytes) 10.5 2.0-12.0 [place] 884133-02-22 13:17:00 Test Item Value Reference Range Interpretation Comments Eosinophils (test code = 5.0 See_Comment [A utomated message] The Eosinophils) system which ge nerated this result tra nsmitted reference range : <=4.0. The reference r christiano was not used to int erpret this result as normal/abnormal . [place] 884133-02-22 13:17:00 Test Item Value Reference Range Interpretation Comments Basophils (test code = 0.8 See_Comment [Aut omated message] The Basophils) system which ge nerated this result tra nsmitted reference range : <=1.0. The reference r christiano was not used to int erpret this result as normal/abnormal . [place] 884133-02-22 13:17:00 Test Item Value Reference Range Interpretation Comments Neutrophils # (test code = Neutrophils 4.1 1.5-8.1 #) [place] 884133-02-22 13:17:00 Test Item Value Reference Range Interpretation Comments Lymphocytes # (test code = Lymphocytes 2.2 1.0-5.5 #) [place] 884133-02-22 13:17:00 Test Item Value Reference Range Interpretation Comments Monocytes # (test code 0.8 See_Comment [Aut omated message] The = Monocytes #) system which generated this result tra nsmitted reference range : <=0.8. The reference r christiano was not used to int erpret this result as normal/abnormal . [place] 884133-02-22 13:17:00 Test Item Value Reference Range Interpretation Comments Eosinophils # (test code 0.4 See_Comment [A utomated message] The = Eosinophils #) system whic h generated this result tra nsmitted reference range : <=0.5. The reference r christiano was not used to int erpret this result as normal/abnormal . [place] 884133-02-22 13:17:00 Test Item Value Reference Range Interpretation Comments Basophils # (test code 0.1 See_Comment [Aut omated message] The = Basophils #) system which generated this result tra nsmitted reference range : <=0.2. The reference r christiano was not used to int erpret this result as normal/abnormal . [place] 884133-02-22 13:17:00 Test Item Value Reference Range Interpretation Comments WBC (test code = WBC) 7.5 3.7-10.4 [facility] CenterTgxmzldBDJWNWIAHD1293-61-44 13:17:00 Test Item Value Reference Range Interpretation Comments RBC (test code = RBC) 3.30 4.20-5.40 [place] 884133-02-22 13:17:00 Test Item Value Reference Range Interpretation Comments Hgb (test code = Hgb) 9.9 12.0-16.0 [place] 884133-02-22 13:17:00 Test Item Value Reference Range Interpretation Comments Hct (test code = Hct) 30.3 36.0-48.0 [place] 884133-02-22 13:17:00 Test Item Value Reference Range Interpretation Comments MCV (test code = MCV) 91.8 80.0-98.0 [place] 884133-02-22 13:17:00 Test Item Value Reference Range Interpretation Comments MCH (test code = MCH) 30.0 pg 27.0-31.0 [place] 884133-02-22 13:17:00 Test Item Value Reference Range Interpretation Comments MCHC (test code = MCHC) 32.7 32.0-36.0 [facility] CenterPphdwkkSPSSGVSSJR3112-11-94 13:17:00 Test Item Value Reference Range Interpretation Comments RDW (test code = RDW) 14.4 11.5-14.5 [facility] CenterOzuvfxsZMYXPJRJAW2361-15-43 13:17:00 Test Item Value Reference Range Interpretation Comments Platelet (test code = Platelet) 136 133-450 [facility] CenterXiyzjfzCFNHBZLKSO0288-49-71 13:17:00 Test Item Value Reference Range Interpretation Comments MPV (test code = MPV) 8.7 7.4-10.4 [place] [address]-02-22 13:17:00 Test Item Value Reference Range Interpretation Comments Segs (test code = Segs) 54.4 45.0-75.0 [place] 884133-02-22 13:17:00 Test Item Value Reference Range Interpretation Comments Lymphocytes (test code = Lymphocytes) 29.3 20.0-40.0 [place] 884133-02-22 13:17:00 Test Item Value Reference Range Interpretation Comments Monocytes (test code = Monocytes) 10.5 2.0-12.0 [place] 884133-02-22 13:17:00 Test Item Value Reference Range Interpretation Comments Eosinophils (test code = 5.0 See_Comment [A utomated message] The Eosinophils) system which ge nerated this result tra nsmitted reference range : <=4.0. The reference r christiano was not used to int erpret this result as normal/abnormal . [place] 884133-02-22 13:17:00 Test Item Value Reference Range Interpretation Comments Basophils (test code = 0.8 See_Comment [Aut omated message] The Basophils) system which ge nerated this result tra nsmitted reference range : <=1.0. The reference r christiano was not used to int erpret this result as normal/abnormal . [place] 884133-02-22 13:17:00 Test Item Value Reference Range Interpretation Comments Neutrophils # (test code = Neutrophils 4.1 1.5-8.1 #) [place] 884133-02-22 13:17:00 Test Item Value Reference Range Interpretation Comments Lymphocytes # (test code = Lymphocytes 2.2 1.0-5.5 #) [place] [address]-02-22 13:17:00 Test Item Value Reference Range Interpretation Comments Monocytes # (test code 0.8 See_Comment [Aut omated message] The = Monocytes #) system which generated this result tra nsmitted reference range : <=0.8. The reference r christiano was not used to int erpret this result as normal/abnormal . [place] 884133-02-22 13:17:00 Test Item Value Reference Range Interpretation Comments Eosinophils # (test code 0.4 See_Comment [A utomated message] The = Eosinophils #) system whic h generated this result tra nsmitted reference range : <=0.5. The reference r christiano was not used to int erpret this result as normal/abnormal . [place] 884133-02-22 13:17:00 Test Item Value Reference Range Interpretation Comments Basophils # (test code 0.1 See_Comment [Aut omated message] The = Basophils #) system which generated this result tra nsmitted reference range : <=0.2. The reference r christiano was not used to int erpret this result as normal/abnormal . [facility] CenterUudnmykVZEZWHRXCE3372-09-45 13:17:00 Test Item Value Reference Range Interpretation Comments WBC (test code = WBC) 7.5 3.7-10.4 [place] 884133-02-22 13:17:00 Test Item Value Reference Range Interpretation Comments RBC (test code = RBC) 3.30 4.20-5.40 [place] 884133-02-22 13:17:00 Test Item Value Reference Range Interpretation Comments Hgb (test code = Hgb) 9.9 12.0-16.0 [place] 884133-02-22 13:17:00 Test Item Value Reference Range Interpretation Comments Hct (test code = Hct) 30.3 36.0-48.0 [place] 884133-02-22 13:17:00 Test Item Value Reference Range Interpretation Comments MCV (test code = MCV) 91.8 80.0-98.0 [place] 884133-02-22 13:17:00 Test Item Value Reference Range Interpretation Comments MCH (test code = MCH) 30.0 pg 27.0-31.0 [facility] CenterVxjzvglQDATSTPXRI0757-45-27 13:17:00 Test Item Value Reference Range Interpretation Comments MCHC (test code = MCHC) 32.7 32.0-36.0 [facility] CenterNkunageCRFPZLOBYV8582-45-61 13:17:00 Test Item Value Reference Range Interpretation Comments RDW (test code = RDW) 14.4 11.5-14.5 [facility] CenterRirpufrILTWBMVBBO5203-04-08 13:17:00 Test Item Value Reference Range Interpretation Comments Platelet (test code = Platelet) 136 133-450 [facility] CenterUpooqetICURZARARD2767-19-16 13:17:00 Test Item Value Reference Range Interpretation Comments MPV (test code = MPV) 8.7 7.4-10.4 [facility] JSBSWSR1434-88-42 13:17:00 Test Item Value Reference Range Interpretation Comments Ca Ion WB (test code = Ca Ion WB) 1.06 1.05-1.25 [facility]RO[facility] NJGLZQN8746-42-96 13:17:00 Test Item Value Reference Range Interpretation Comments Ca Ion at pH 7.4 WB (test code = Ca Ion 1.03 1.05-1.25 at pH 7.4 WB) [place] 608593-02-22 13:17:00 Test Item Value Reference Range Interpretation Comments Glucose Lvl (test code = Glucose Lvl) 65 70-99 [place] 608593-02-22 13:17:00 Test Item Value Reference Range Interpretation Comments BUN (test code = BUN) 39 7-22 [place] 608593-02-22 13:17:00 Test Item Value Reference Range Interpretation Comments Creatinine Lvl (test code = Creatinine 2.03 0.50-1.40 Lvl) [place] 608593-02-22 13:17:00 Test Item Value Reference Range Interpretation Comments Sodium Lvl (test code = Sodium Lvl) 139 135-145 [place] 608593-02-22 13:17:00 Test Item Value Reference Range Interpretation Comments Potassium Lvl (test code = Potassium 4.7 3.5-5.1 Lvl) [place] [id number] 13:17:00 Test Item Value Reference Range Interpretation Comments Chloride Lvl (test code = Chloride Lvl) 107 95-109 [place] [id number] 13:17:00 Test Item Value Reference Range Interpretation Comments CO2 (test code = CO2) 26 24-32 [place] [id number] 13:17:00 Test Item Value Reference Range Interpretation Comments Calcium Lvl (test code = Calcium Lvl) 8.1 8.5-10.5 [place] [id number] 13:17:00 Test Item Value Reference Range Interpretation Comments AGAP (test code = AGAP) 10.7 10.0-20.0 [place] 608593-02-22 13:17:00 Test Item Value Reference Range Interpretation Comments eGFR (test code = eGFR) 24 [place] 608593-02-22 13:17:00 Test Item Value Reference Range Interpretation Comments Magnesium Lvl (test code = Magnesium 2.7 1.8-2.4 Lvl) [place] 608593-02-22 13:17:00 Test Item Value Reference Range Interpretation Comments Phosphorus (test code = Phosphorus) 3.9 2.5-4.5 [place] 809593-02-22 13:17:00 Test Item Value Reference Range Interpretation Comments Glucose Lvl (test code = Glucose Lvl) 65 70-99 [facility]OkmllscINAGZGUOH7055-68-05 13:17:00 Test Item Value Reference Range Interpretation Comments BUN (test code = BUN) 39 7-22 [facility] CenterQhfjwckDXOSFIYGL9865-87-61 13:17:00 Test Item Value Reference Range Interpretation Comments Creatinine Lvl (test code = Creatinine 2.03 0.50-1.40 Lvl) [facility] CenterEwuxpoqLUOVBEDNQ3636-87-51 13:17:00 Test Item Value Reference Range Interpretation Comments Sodium Lvl (test code = Sodium Lvl) 139 135-145 [place] 809593-02-22 13:17:00 Test Item Value Reference Range Interpretation Comments Potassium Lvl (test code = Potassium 4.7 3.5-5.1 Lvl) [facility] CenterIuiatkbKLGVJYKHU8801-54-85 13:17:00 Test Item Value Reference Range Interpretation Comments Chloride Lvl (test code = Chloride Lvl) 107 95-109 [facility] CenterIyqwyjhEYUQLUMFE1640-11-98 13:17:00 Test Item Value Reference Range Interpretation Comments CO2 (test code = CO2) 26 24-32 [facility] CenterXoszmilEZUCRYSBT4485-32-33 13:17:00 Test Item Value Reference Range Interpretation Comments Calcium Lvl (test code = Calcium Lvl) 8.1 8.5-10.5 [facility] CenterVgtnewmVLIGTJAGF8209-08-99 13:17:00 Test Item Value Reference Range Interpretation Comments AGAP (test code = AGAP) 10.7 10.0-20.0 [facility] CenterQpbbpzlNLZASIGKQ0874-14-44 13:17:00 Test Item Value Reference Range Interpretation Comments eGFR (test code = eGFR) 24 [facility] CenterOdeagvjAMAMECGXF7884-89-60 13:17:00 Test Item Value Reference Range Interpretation Comments Ca Ion WB (test code = Ca Ion WB) 1.06 1.05-1.25 [place] 809593-02-22 13:17:00 Test Item Value Reference Range Interpretation Comments Ca Ion at pH 7.4 WB (test code = Ca Ion 1.03 1.05-1.25 at pH 7.4 WB) [facility] CenterJijpwiwAJNVTLFHG7613-51-19 13:17:00 Test Item Value Reference Range Interpretation Comments Magnesium Lvl (test code = Magnesium 2.7 1.8-2.4 Lvl) [facility] HospitalJtymsfkDMOPSTYKN9714-52-31 13:17:00 Test Item Value Reference Range Interpretation Comments Phosphorus (test code = Phosphorus) 3.9 2.5-4.5 [facility] CenterUbsohelVXRRLAFZOB9758-17-13 13:17:00 Test Item Value Reference Range Interpretation Comments Segs (test code = Segs) 54.4 45.0-75.0 [facility] CenterLrempaaPAUPBYHZWA1607-52-42 13:17:00 Test Item Value Reference Range Interpretation Comments Lymphocytes (test code = Lymphocytes) 29.3 20.0-40.0 [facility] CenterFqnlrknIGVWADJGDR7695-01-52 13:17:00 Test Item Value Reference Range Interpretation Comments Monocytes (test code = Monocytes) 10.5 2.0-12.0 [facility] CenterDzsgpdfQQGLYODJKO7140-54-32 13:17:00 Test Item Value Reference Range Interpretation Comments Eosinophils (test code = 5.0 See_Comment [A utomated message] The Eosinophils) system which ge nerated this result tra nsmitted reference range : <=4.0. The reference r christiano was not used to int erpret this result as normal/abnormal . [facility] CenterPjbtkclGSPYHWVXZD0106-78-33 13:17:00 Test Item Value Reference Range Interpretation Comments Basophils (test code = 0.8 See_Comment [Aut omated message] The Basophils) system which ge nerated this result tra nsmitted reference range : <=1.0. The reference r christiano was not used to int erpret this result as normal/abnormal . [facility] CenterWfybdlrCHLXSSWXPK7227-04-14 13:17:00 Test Item Value Reference Range Interpretation Comments Neutrophils # (test code = Neutrophils 4.1 1.5-8.1 #) [facility] CenterNoluebkTXHQPGVBHH2752-55-91 13:17:00 Test Item Value Reference Range Interpretation Comments Lymphocytes # (test code = Lymphocytes 2.2 1.0-5.5 #) [facility] CenterNnknqadTRUXUJWAYE1793-08-31 13:17:00 Test Item Value Reference Range Interpretation Comments Monocytes # (test code 0.8 See_Comment [Aut omated message] The = Monocytes #) system which generated this result tra nsmitted reference range : <=0.8. The reference r christiano was not used to int erpret this result as normal/abnormal . [place] 884133-02-22 13:17:00 Test Item Value Reference Range Interpretation Comments Eosinophils # (test code 0.4 See_Comment [A utomated message] The = Eosinophils #) system whic h generated this result tra nsmitted reference range : <=0.5. The reference r christiano was not used to int erpret this result as normal/abnormal . [place] 884133-02-22 13:17:00 Test Item Value Reference Range Interpretation Comments Basophils # (test code 0.1 See_Comment [Aut omated message] The = Basophils #) system which generated this result tra nsmitted reference range : <=0.2. The reference r christiano was not used to int erpret this result as normal/abnormal . [facility] CenterPdlvgeeJDBQOVYHGE1580-13-48 13:17:00 Test Item Value Reference Range Interpretation Comments WBC (test code = WBC) 7.5 3.7-10.4 [place] 884133-02-22 13:17:00 Test Item Value Reference Range Interpretation Comments RBC (test code = RBC) 3.30 4.20-5.40 [place] 884133-02-22 13:17:00 Test Item Value Reference Range Interpretation Comments Hgb (test code = Hgb) 9.9 12.0-16.0 [place] 884133-02-22 13:17:00 Test Item Value Reference Range Interpretation Comments Hct (test code = Hct) 30.3 36.0-48.0 [place] 884133-02-22 13:17:00 Test Item Value Reference Range Interpretation Comments MCV (test code = MCV) 91.8 80.0-98.0 [place] 884133-02-22 13:17:00 Test Item Value Reference Range Interpretation Comments MCH (test code = MCH) 30.0 pg 27.0-31.0 [place] 884133-02-22 13:17:00 Test Item Value Reference Range Interpretation Comments MCHC (test code = MCHC) 32.7 32.0-36.0 [place] [address]-02-22 13:17:00 Test Item Value Reference Range Interpretation Comments RDW (test code = RDW) 14.4 11.5-14.5 [place] 884133-02-22 13:17:00 Test Item Value Reference Range Interpretation Comments Platelet (test code = Platelet) 136 133-450 [place] 884133-02-22 13:17:00 Test Item Value Reference Range Interpretation Comments MPV (test code = MPV) 8.7 7.4-10.4 [place] [address]-02-22 13:17:00 Test Item Value Reference Range Interpretation Comments Segs (test code = Segs) 54.4 45.0-75.0 [place] 884133-02-22 13:17:00 Test Item Value Reference Range Interpretation Comments Lymphocytes (test code = Lymphocytes) 29.3 20.0-40.0 [place] 884133-02-22 13:17:00 Test Item Value Reference Range Interpretation Comments Monocytes (test code = Monocytes) 10.5 2.0-12.0 [place] 884133-02-22 13:17:00 Test Item Value Reference Range Interpretation Comments Eosinophils (test code = 5.0 See_Comment [A utomated message] The Eosinophils) system which ge nerated this result tra nsmitted reference range : <=4.0. The reference r christiano was not used to int erpret this result as normal/abnormal . [place] 884133-02-22 13:17:00 Test Item Value Reference Range Interpretation Comments Basophils (test code = 0.8 See_Comment [Aut omated message] The Basophils) system which ge nerated this result tra nsmitted reference range : <=1.0. The reference r christiano was not used to int erpret this result as normal/abnormal . [facility] CenterFlymngxIBVJXERSMQ5669-29-53 13:17:00 Test Item Value Reference Range Interpretation Comments Neutrophils # (test code = Neutrophils 4.1 1.5-8.1 #) [place] 884133-02-22 13:17:00 Test Item Value Reference Range Interpretation Comments Lymphocytes # (test code = Lymphocytes 2.2 1.0-5.5 #) [place] 884133-02-22 13:17:00 Test Item Value Reference Range Interpretation Comments Monocytes # (test code 0.8 See_Comment [Aut omated message] The = Monocytes #) system which generated this result tra nsmitted reference range : <=0.8. The reference r christiano was not used to int erpret this result as normal/abnormal . [place] 884133-02-22 13:17:00 Test Item Value Reference Range Interpretation Comments Eosinophils # (test code 0.4 See_Comment [A utomated message] The = Eosinophils #) system whic h generated this result tra nsmitted reference range : <=0.5. The reference r christiano was not used to int erpret this result as normal/abnormal . [place] 884133-02-22 13:17:00 Test Item Value Reference Range Interpretation Comments Basophils # (test code 0.1 See_Comment [Aut omated message] The = Basophils #) system which generated this result tra nsmitted reference range : <=0.2. The reference r christiano was not used to int erpret this result as normal/abnormal . [place] 884133-02-22 13:17:00 Test Item Value Reference Range Interpretation Comments WBC (test code = WBC) 7.5 3.7-10.4 [place] 884133-02-22 13:17:00 Test Item Value Reference Range Interpretation Comments RBC (test code = RBC) 3.30 4.20-5.40 [place] 884133-02-22 13:17:00 Test Item Value Reference Range Interpretation Comments Hgb (test code = Hgb) 9.9 12.0-16.0 [place] [address]-02-22 13:17:00 Test Item Value Reference Range Interpretation Comments Hct (test code = Hct) 30.3 36.0-48.0 [place] [address]-02-22 13:17:00 Test Item Value Reference Range Interpretation Comments MCV (test code = MCV) 91.8 80.0-98.0 [place] [address]-02-22 13:17:00 Test Item Value Reference Range Interpretation Comments MCH (test code = MCH) 30.0 pg 27.0-31.0 [place] [address]-02-22 13:17:00 Test Item Value Reference Range Interpretation Comments MCHC (test code = MCHC) 32.7 32.0-36.0 [place] [address]-02-22 13:17:00 Test Item Value Reference Range Interpretation Comments RDW (test code = RDW) 14.4 11.5-14.5 [facility]PnostbcNZDZRXEVZZ6536-41-27 13:17:00 Test Item Value Reference Range Interpretation Comments Platelet (test code = Platelet) 136 133-450 [facility] RlitjuzAQNDVPXUDW6876-32-34 13:17:00 Test Item Value Reference Range Interpretation Comments MPV (test code = MPV) 8.7 7.4-10.4 [facility] KDBDYOJ2807-81-72 13:17:00 Test Item Value Reference Range Interpretation Comments Ca Ion WB (test code = Ca Ion WB) 1.06 1.05-1.25 [facility]PAR[facility] [id number] 13:17:00 Test Item Value Reference Range Interpretation Comments Ca Ion at pH 7.4 WB (test code = Ca Ion 1.03 1.05-1.25 at pH 7.4 WB) [facility] CenterTzjymmhEHNRGUCHP9439-59-98 15:39:00 Test Item Value Reference Range Interpretation Comments U Amph Scr (test code Negative *NA*(11/21/22 = U Amph Scr) 9:39 AM) [facility] CenterHhkrcnvSKGGGLDXH5916-41-15 15:39:00 Test Item Value Reference Range Interpretation Comments U Analilia Scr (test code Positive *ABN*(11/21/22 = U Analilia Scr) 9:39 AM) [facility] CenterKfknbdfVYCWOHVXG4724-30-39 15:39:00 Test Item Value Reference Range Interpretation Comments U Benzodiaz Scr (test Negative *NA*(11/21/22 code = U Benzodiaz Scr) 9:39 AM) [facility] CenterCufoaubRAAJRBFEX2701-39-13 15:39:00 Test Item Value Reference Range Interpretation Comments U Cocaine Scr (test Negative *NA*(11/21/22 code = U Cocaine Scr) 9:39 AM) [facility] CenterYnunjmbVFUQFUGNJ9315-43-94 15:39:00 Test Item Value Reference Range Interpretation Comments U Cannab Scr (test Negative *NA*(11/21/22 code = U Cannab Scr) 9:39 AM) [facility] CenterItxxqgiRSASDLGHG7330-23-19 15:39:00 Test Item Value Reference Range Interpretation Comments U Opiate Scr (test Positive *ABN*(11/21/22 code = U Opiate Scr) 9:39 AM) [facility] CenterHmqwhqyYVSKHZGSU0223-99-55 15:39:00 Test Item Value Reference Range Interpretation Comments U Phencyclidine Scr (test Negative code = U Phencyclidine *NA*(11/21/22 9:39 Scr) AM) [facility]evilleDemakrhSLIUPILAZ5625-36-65 15:39:00 Test Item Value Reference Range Interpretation Comments UDS Note (test code = See Note (11/21/22 9:39 UDS Note) AM) [facility] ZrdywfgHMFDMEIUJW6502-08-66 15:39:00 Test Item Value Reference Range Interpretation Comments Coronavirus (COVID-19) Not Detected (11/21/22 JONATHAN (test code = 9:39 AM) Coronavirus (COVID-19) JONATHAN) [facility] AND [id number] 15:39:00 Test Item Value Reference Range Interpretation Comments UA Color (test code = Light Yellow UA Color) *NA*(11/21/22 9:39 AM) [facility] AND [id number] 15:39:00 Test Item Value Reference Range Interpretation Comments UA Turbidity (test code = Clear (11/21/22 9:39 UA Turbidity) AM) [facility] AND [id number] 15:39:00 Test Item Value Reference Range Interpretation Comments UA Spec Grav (test code = UA Spec 1.014 1 Grav) [facility] AND [id number] 15:39:00 Test Item Value Reference Range Interpretation Comments UA pH (test code = UA pH) 6.0 1 5.0-8.0 [facility] AND [id number] 15:39:00 Test Item Value Reference Range Interpretation Comments UA Protein (test code = UA Protein) 30 mg/dL [facility] AND [id number] 15:39:00 Test Item Value Reference Range Interpretation Comments UA Glucose (test code = UA Negative mg/dL Glucose) [facility] AND [id number] 15:39:00 Test Item Value Reference Range Interpretation Comments UA Ketones (test code = UA Negative mg/dL Ketones) [facility] [id number] 15:39:00 Test Item Value Reference Range Interpretation Comments UA Bili (test code = Negative *NA*(11/21/22 UA Bili) 9:39 AM) [facility]ann[facility] AND [id number] 15:39:00 Test Item Value Reference Range Interpretation Comments UA Blood (test code = Negative (11/21/22 9:39 UA Blood) AM) [facility] AND [id number] 15:39:00 Test Item Value Reference Range Interpretation Comments UA Urobilinogen (test code = UA no gt 0.1-1.0 Urobilinogen) [facility] AND [id number] 15:39:00 Test Item Value Reference Range Interpretation Comments UA Nitrite (test code Negative (11/21/22 9:39 = UA Nitrite) AM) [facility] AND [id number] 15:39:00 Test Item Value Reference Range Interpretation Comments UA Leuk Est (test Negative (11/21/22 9:39 code = UA Leuk Est) AM) [facility] AND [id number] 15:39:00 Test Item Value Reference Range Interpretation Comments UA Sq Epi (test code = UA Sq Occasional /LPF Epi) [facility] AND [id number] 15:39:00 Test Item Value Reference Range Interpretation Comments UA WBC (test code = no gt See_Comment [Automa sheba message] The UA WBC) system which ge nerated this result transmit sheba reference range : <=5. The reference range was not used to interpr et this result as edy l/abnormal. [facility] AND [id number] 15:39:00 Test Item Value Reference Range Interpretation Comments UA RBC (test code = no gt See_Comment [Automa sheba message] The UA RBC) system which ge nerated this result transmit sheba reference range : <=2. The reference range was not used to interpr et this result as edy l/abnormal. [facility] CenterQdjbzkeCJVXYHFYW1155-13-92 15:39:00 Test Item Value Reference Range Interpretation Comments U Amph Scr (test code Negative *NA*(11/21/22 = U Amph Scr) 9:39 AM) [facility] CenterCxbvhyyLNGJMECIO4414-41-17 15:39:00 Test Item Value Reference Range Interpretation Comments U Analilia Scr (test code Positive *ABN*(11/21/22 = U Analilia Scr) 9:39 AM) [facility] CenterAltsdktYGMTTGVPG0319-10-59 15:39:00 Test Item Value Reference Range Interpretation Comments U Benzodiaz Scr (test Negative *NA*(11/21/22 code = U Benzodiaz Scr) 9:39 AM) [facility] PvpmboaVKDCAEBGS5047-50-61 15:39:00 Test Item Value Reference Range Interpretation Comments U Cocaine Scr (test Negative *NA*(11/21/22 code = U Cocaine Scr) 9:39 AM) [facility] TncfsuxZBOSJKTCP9762-09-55 15:39:00 Test Item Value Reference Range Interpretation Comments U Cannab Scr (test Negative *NA*(11/21/22 code = U Cannab Scr) 9:39 AM) [facility] AlybufuWFUECJHUN9157-03-77 15:39:00 Test Item Value Reference Range Interpretation Comments U Opiate Scr (test Positive *ABN*(11/21/22 code = U Opiate Scr) 9:39 AM) [facility] HtqswrmAXZCEIUMO8451-05-70 15:39:00 Test Item Value Reference Range Interpretation Comments U Phencyclidine Scr (test Negative code = U Phencyclidine *NA*(11/21/22 9:39 Scr) AM) [facility] TwsuyriZZNIQCGBB2255-13-83 15:39:00 Test Item Value Reference Range Interpretation Comments UDS Note (test code = See Note (11/21/22 9:39 UDS Note) AM) [facility] HospitalQihoqjxJEMAFNNWNK7650-26-86 15:39:00 Test Item Value Reference Range Interpretation Comments Coronavirus (COVID-19) Not Detected (11/21/22 JONATHAN (test code = 9:39 AM) Coronavirus (COVID-19) JONATHAN) [facility] AND [id number] 15:39:00 Test Item Value Reference Range Interpretation Comments UA Color (test code = Light Yellow UA Color) *NA*(11/21/22 9:39 AM) [facility] [id number] 15:39:00 Test Item Value Reference Range Interpretation Comments UA Turbidity (test code = Clear (11/21/22 9:39 UA Turbidity) AM) [facility] [id number] 15:39:00 Test Item Value Reference Range Interpretation Comments UA Spec Grav (test code = UA Spec 1.014 1 Grav) [facility] [id number] 15:39:00 Test Item Value Reference Range Interpretation Comments UA pH (test code = UA pH) 6.0 1 5.0-8.0 [facility]ann[facility] AND [id number] 15:39:00 Test Item Value Reference Range Interpretation Comments UA Protein (test code = UA Protein) 30 mg/dL [facility] AND [id number] 15:39:00 Test Item Value Reference Range Interpretation Comments UA Glucose (test code = UA Negative mg/dL Glucose) [facility] AND [id number] 15:39:00 Test Item Value Reference Range Interpretation Comments UA Ketones (test code = UA Negative mg/dL Ketones) [facility] AND [id number] 15:39:00 Test Item Value Reference Range Interpretation Comments UA Bili (test code = Negative *NA*(11/21/22 UA Bili) 9:39 AM) [facility] AND [id number] 15:39:00 Test Item Value Reference Range Interpretation Comments UA Blood (test code = Negative (11/21/22 9:39 UA Blood) AM) [facility] AND [id number] 15:39:00 Test Item Value Reference Range Interpretation Comments UA Urobilinogen (test code = UA no gt 0.1-1.0 Urobilinogen) [facility] AND [id number] 15:39:00 Test Item Value Reference Range Interpretation Comments UA Nitrite (test code Negative (11/21/22 9:39 = UA Nitrite) AM) [facility] AND [id number] 15:39:00 Test Item Value Reference Range Interpretation Comments UA Leuk Est (test Negative (11/21/22 9:39 code = UA Leuk Est) AM) [facility] AND [id number] 15:39:00 Test Item Value Reference Range Interpretation Comments UA Sq Epi (test code = UA Sq Occasional /LPF Epi) [facility] AND [id number] 15:39:00 Test Item Value Reference Range Interpretation Comments UA WBC (test code = no gt See_Comment [Automa sheba message] The UA WBC) system which ge nerated this result transmit sheba reference range : <=5. The reference range was not used to interpr et this result as edy l/abnormal. [facility] AND [id number] 15:39:00 Test Item Value Reference Range Interpretation Comments UA RBC (test code = no gt See_Comment [Automa sheba message] The UA RBC) system which ge nerated this result transmit sheba reference range : <=2. The reference range was not used to interpr et this result as edy l/abnormal. [facility] HospitalPexydqaZZDTQPGGQ3551-17-35 15:39:00 Test Item Value Reference Range Interpretation Comments U Amph Scr (test code Negative *NA*(11/21/22 = U Amph Scr) 9:39 AM) [facility]PpsohuaWGRVXFRME8589-90-85 15:39:00 Test Item Value Reference Range Interpretation Comments U Analilia Scr (test code Positive *ABN*(11/21/22 = U Analilia Scr) 9:39 AM) [facility]evilleNmaurloEMOKEBLTI0699-76-90 15:39:00 Test Item Value Reference Range Interpretation Comments U Benzodiaz Scr (test Negative *NA*(11/21/22 code = U Benzodiaz Scr) 9:39 AM) [facility] HospitalQosjybqEAYMKXFWC6919-26-17 15:39:00 Test Item Value Reference Range Interpretation Comments U Cocaine Scr (test Negative *NA*(11/21/22 code = U Cocaine Scr) 9:39 AM) [facility]evilleQzqnlwdABDKMAKON7369-73-99 15:39:00 Test Item Value Reference Range Interpretation Comments U Cannab Scr (test Negative *NA*(11/21/22 code = U Cannab Scr) 9:39 AM) [facility] HospitalFktwummBHQXGBFVU6441-33-35 15:39:00 Test Item Value Reference Range Interpretation Comments U Opiate Scr (test Positive *ABN*(11/21/22 code = U Opiate Scr) 9:39 AM) [facility]evilleBrlrrvjDPGFNQOUN6201-87-19 15:39:00 Test Item Value Reference Range Interpretation Comments U Phencyclidine Scr (test Negative code = U Phencyclidine *NA*(11/21/22 9:39 Scr) AM) [facility]evilleYfttwfgJAQXCYNSE9451-89-56 15:39:00 Test Item Value Reference Range Interpretation Comments UDS Note (test code = See Note (11/21/22 9:39 UDS Note) AM) [facility]annDR[facility] [id number] 15:39:00 Test Item Value Reference Range Interpretation Comments U Amph Scr (test code Negative *NA*(11/21/22 = U Amph Scr) 9:39 AM) [facility] [id number] 15:39:00 Test Item Value Reference Range Interpretation Comments U Analilia Scr (test code Positive *ABN*(11/21/22 = U Analilia Scr) 9:39 AM) [facility] [id number] 15:39:00 Test Item Value Reference Range Interpretation Comments U Benzodiaz Scr (test Negative *NA*(11/21/22 code = U Benzodiaz Scr) 9:39 AM) [facility]annDR[facility] [id number] 15:39:00 Test Item Value Reference Range Interpretation Comments U Cocaine Scr (test Negative *NA*(11/21/22 code = U Cocaine Scr) 9:39 AM) [facility] CenterannDRUG [id number] 15:39:00 Test Item Value Reference Range Interpretation Comments U Cannab Scr (test Negative *NA*(11/21/22 code = U Cannab Scr) 9:39 AM) [facility] CenterannDR[facility] [id number] 15:39:00 Test Item Value Reference Range Interpretation Comments U Opiate Scr (test Positive *ABN*(11/21/22 code = U Opiate Scr) 9:39 AM) [facility] CenterannDR[facility] [id number] 15:39:00 Test Item Value Reference Range Interpretation Comments U Phencyclidine Scr (test Negative code = U Phencyclidine *NA*(11/21/22 9:39 Scr) AM) [facility] CenterannDR[facility] [id number] 15:39:00 Test Item Value Reference Range Interpretation Comments UDS Note (test code = See Note (11/21/22 9:39 UDS Note) AM) [facility] [id number] 15:39:00 Test Item Value Reference Range Interpretation Comments Coronavirus (COVID-19) Not Detected (11/21/22 JONATHAN (test code = 9:39 AM) Coronavirus (COVID-19) JONATHAN) [facility] [id number] 15:39:00 Test Item Value Reference Range Interpretation Comments Coronavirus (COVID-19) Not Detected (11/21/22 JONATHAN (test code = 9:39 AM) Coronavirus (COVID-19) JONATHAN) [facility] [id number] 15:39:00 Test Item Value Reference Range Interpretation Comments UA Color (test code = Light Yellow UA Color) *NA*(11/21/22 9:39 AM) [facility] AND [id number] 15:39:00 Test Item Value Reference Range Interpretation Comments UA Turbidity (test code = Clear (11/21/22 9:39 UA Turbidity) AM) [facility] AND [id number] 15:39:00 Test Item Value Reference Range Interpretation Comments UA Spec Grav (test code = UA Spec 1.014 1 Grav) [facility] AND [id number] 15:39:00 Test Item Value Reference Range Interpretation Comments UA pH (test code = UA pH) 6.0 1 5.0-8.0 [facility] AND [id number] 15:39:00 Test Item Value Reference Range Interpretation Comments UA Protein (test code = UA Protein) 30 mg/dL [facility] AND [id number] 15:39:00 Test Item Value Reference Range Interpretation Comments UA Glucose (test code = UA Negative mg/dL Glucose) [facility] AND [id number] 15:39:00 Test Item Value Reference Range Interpretation Comments UA Ketones (test code = UA Negative mg/dL Ketones) [facility] AND [id number] 15:39:00 Test Item Value Reference Range Interpretation Comments UA Bili (test code = Negative *NA*(11/21/22 UA Bili) 9:39 AM) [facility] AND [id number] 15:39:00 Test Item Value Reference Range Interpretation Comments UA Blood (test code = Negative (11/21/22 9:39 UA Blood) AM) [facility] AND [id number] 15:39:00 Test Item Value Reference Range Interpretation Comments UA Urobilinogen (test code = UA no gt 0.1-1.0 Urobilinogen) [facility] AND [id number] 15:39:00 Test Item Value Reference Range Interpretation Comments UA Nitrite (test code Negative (11/21/22 9:39 = UA Nitrite) AM) [facility] AND [id number] 15:39:00 Test Item Value Reference Range Interpretation Comments UA Leuk Est (test Negative (11/21/22 9:39 code = UA Leuk Est) AM) [facility] AND [id number] 15:39:00 Test Item Value Reference Range Interpretation Comments UA Sq Epi (test code = UA Sq Occasional /LPF Epi) [facility] AND [id number] 15:39:00 Test Item Value Reference Range Interpretation Comments UA WBC (test code = no gt See_Comment [Automa sheba message] The UA WBC) system which ge nerated this result transmit sheba reference range : <=5. The reference range was not used to interpr et this result as edy l/abnormal. [facility] AND [id number] 15:39:00 Test Item Value Reference Range Interpretation Comments UA RBC (test code = no gt See_Comment [Automa sheba message] The UA RBC) system which ge nerated this result transmit sheba reference range : <=2. The reference range was not used to interpr et this result as edy l/abnormal. [facility] AND [id number] 15:39:00 Test Item Value Reference Range Interpretation Comments UA Color (test code = Light Yellow UA Color) *NA*(11/21/22 9:39 AM) [facility] AND [id number] 15:39:00 Test Item Value Reference Range Interpretation Comments UA Turbidity (test code = Clear (11/21/22 9:39 UA Turbidity) AM) [facility] AND [id number] 15:39:00 Test Item Value Reference Range Interpretation Comments UA Spec Grav (test code = UA Spec 1.014 1 Grav) [facility] AND [id number] 15:39:00 Test Item Value Reference Range Interpretation Comments UA pH (test code = UA pH) 6.0 1 5.0-8.0 [facility] AND [id number] 15:39:00 Test Item Value Reference Range Interpretation Comments UA Protein (test code = UA Protein) 30 mg/dL [facility] AND [id number] 15:39:00 Test Item Value Reference Range Interpretation Comments UA Glucose (test code = UA Negative mg/dL Glucose) [facility] AND [id number] 15:39:00 Test Item Value Reference Range Interpretation Comments UA Ketones (test code = UA Negative mg/dL Ketones) [facility] AND [id number] 15:39:00 Test Item Value Reference Range Interpretation Comments UA Bili (test code = Negative *NA*(11/21/22 UA Bili) 9:39 AM) [facility] [id number] 15:39:00 Test Item Value Reference Range Interpretation Comments UA Blood (test code = Negative (11/21/22 9:39 UA Blood) AM) [facility] [id number] 15:39:00 Test Item Value Reference Range Interpretation Comments UA Urobilinogen (test code = UA no gt 0.1-1.0 Urobilinogen) [facility] [id number] 15:39:00 Test Item Value Reference Range Interpretation Comments UA Nitrite (test code Negative (11/21/22 9:39 = UA Nitrite) AM) [facility] AND [id number] 15:39:00 Test Item Value Reference Range Interpretation Comments UA Leuk Est (test Negative (11/21/22 9:39 code = UA Leuk Est) AM) [facility] AND [id number] 15:39:00 Test Item Value Reference Range Interpretation Comments UA Sq Epi (test code = UA Sq Occasional /LPF Epi) [facility] AND [id number] 15:39:00 Test Item Value Reference Range Interpretation Comments UA WBC (test code = no gt See_Comment [Automa sheba message] The UA WBC) system which ge nerated this result transmit sheba reference range : <=5. The reference range was not used to interpr et this result as edy l/abnormal. [facility] AND [id number] 15:39:00 Test Item Value Reference Range Interpretation Comments UA RBC (test code = no gt See_Comment [Automa sheba message] The UA RBC) system which ge nerated this result transmit sheba reference range : <=2. The reference range was not used to interpr et this result as edy l/abnormal. [id number] 15:39:00 Test Item Value Reference Range Interpretation Comments U Amph Scr (test code Negative *NA*(11/21/22 = U Amph Scr) 9:39 AM) [facility] [id number] 15:39:00 Test Item Value Reference Range Interpretation Comments U Analilia Scr (test code Positive *ABN*(11/21/22 = U Analilia Scr) 9:39 AM) [facility] [id number] 15:39:00 Test Item Value Reference Range Interpretation Comments U Benzodiaz Scr (test Negative *NA*(11/21/22 code = U Benzodiaz Scr) 9:39 AM) [facility] [id number] 15:39:00 Test Item Value Reference Range Interpretation Comments U Cocaine Scr (test Negative *NA*(11/21/22 code = U Cocaine Scr) 9:39 AM) [facility] [id number] 15:39:00 Test Item Value Reference Range Interpretation Comments U Cannab Scr (test Negative *NA*(11/21/22 code = U Cannab Scr) 9:39 AM) [facility] [id number] 15:39:00 Test Item Value Reference Range Interpretation Comments U Opiate Scr (test Positive *ABN*(11/21/22 code = U Opiate Scr) 9:39 AM) [facility] [id number] 15:39:00 Test Item Value Reference Range Interpretation Comments U Phencyclidine Scr (test Negative code = U Phencyclidine *NA*(11/21/22 9:39 Scr) AM) [facility] [id number] 15:39:00 Test Item Value Reference Range Interpretation Comments UDS Note (test code = See Note (11/21/22 9:39 UDS Note) AM) [facility] [id number] 15:39:00 Test Item Value Reference Range Interpretation Comments U Amph Scr (test code Negative *NA*(11/21/22 = U Amph Scr) 9:39 AM) [facility] [id number] 15:39:00 Test Item Value Reference Range Interpretation Comments U Analilia Scr (test code Positive *ABN*(11/21/22 = U Analilia Scr) 9:39 AM) [facility] [id number] 15:39:00 Test Item Value Reference Range Interpretation Comments U Benzodiaz Scr (test Negative *NA*(11/21/22 code = U Benzodiaz Scr) 9:39 AM) [facility] [id number] 15:39:00 Test Item Value Reference Range Interpretation Comments U Cocaine Scr (test Negative *NA*(11/21/22 code = U Cocaine Scr) 9:39 AM) [facility] [id number] 15:39:00 Test Item Value Reference Range Interpretation Comments U Cannab Scr (test Negative *NA*(11/21/22 code = U Cannab Scr) 9:39 AM) [facility] [id number] 15:39:00 Test Item Value Reference Range Interpretation Comments U Opiate Scr (test Positive *ABN*(11/21/22 code = U Opiate Scr) 9:39 AM) [facility] [id number] 15:39:00 Test Item Value Reference Range Interpretation Comments U Phencyclidine Scr (test Negative code = U Phencyclidine *NA*(11/21/22 9:39 Scr) AM) [facility] [id number] 15:39:00 Test Item Value Reference Range Interpretation Comments UDS Note (test code = See Note (11/21/22 9:39 UDS Note) AM) [facility] [id number] 15:39:00 Test Item Value Reference Range Interpretation Comments Coronavirus (COVID-19) Not Detected (11/21/22 JONATHAN (test code = 9:39 AM) Coronavirus (COVID-19) JONATHAN) [facility] [id number] 15:39:00 Test Item Value Reference Range Interpretation Comments Coronavirus (COVID-19) Not Detected (11/21/22 JONATHAN (test code = 9:39 AM) Coronavirus (COVID-19) JONATHAN) [facility] [id number] 15:39:00 Test Item Value Reference Range Interpretation Comments UA Color (test code = Light Yellow UA Color) *NA*(11/21/22 9:39 AM) [facility] [id number] 15:39:00 Test Item Value Reference Range Interpretation Comments UA Turbidity (test code = Clear (11/21/22 9:39 UA Turbidity) AM) [facility] [id number] 15:39:00 Test Item Value Reference Range Interpretation Comments UA Spec Grav (test code = UA Spec 1.014 1 Grav) [facility] [id number] 15:39:00 Test Item Value Reference Range Interpretation Comments UA pH (test code = UA pH) 6.0 1 5.0-8.0 [facility] [id number] 15:39:00 Test Item Value Reference Range Interpretation Comments UA Protein (test code = UA Protein) 30 mg/dL [facility] AND [id number] 15:39:00 Test Item Value Reference Range Interpretation Comments UA Glucose (test code = UA Negative mg/dL Glucose) [facility] AND [id number] 15:39:00 Test Item Value Reference Range Interpretation Comments UA Ketones (test code = UA Negative mg/dL Ketones) [facility] AND [id number] 15:39:00 Test Item Value Reference Range Interpretation Comments UA Bili (test code = Negative *NA*(11/21/22 UA Bili) 9:39 AM) [facility] AND [id number] 15:39:00 Test Item Value Reference Range Interpretation Comments UA Blood (test code = Negative (11/21/22 9:39 UA Blood) AM) [facility] AND [id number] 15:39:00 Test Item Value Reference Range Interpretation Comments UA Urobilinogen (test code = UA no gt 0.1-1.0 Urobilinogen) [facility] AND [id number] 15:39:00 Test Item Value Reference Range Interpretation Comments UA Nitrite (test code Negative (11/21/22 9:39 = UA Nitrite) AM) [facility] AND [id number] 15:39:00 Test Item Value Reference Range Interpretation Comments UA Leuk Est (test Negative (11/21/22 9:39 code = UA Leuk Est) AM) [facility] AND [id number] 15:39:00 Test Item Value Reference Range Interpretation Comments UA Sq Epi (test code = UA Sq Occasional /LPF Epi) [facility] AND [id number] 15:39:00 Test Item Value Reference Range Interpretation Comments UA WBC (test code = no gt See_Comment [Automa sheba message] The UA WBC) system which ge nerated this result transmit sheba reference range : <=5. The reference range was not used to interpr et this result as edy l/abnormal. [facility] AND [id number] 15:39:00 Test Item Value Reference Range Interpretation Comments UA RBC (test code = no gt See_Comment [Automa sheba message] The UA RBC) system which ge nerated this result transmit sheba reference range : <=2. The reference range was not used to interpr et this result as edy l/abnormal. [facility] AND [id number] 15:39:00 Test Item Value Reference Range Interpretation Comments UA Color (test code = Light Yellow UA Color) *NA*(11/21/22 9:39 AM) [facility] AND [id number] 15:39:00 Test Item Value Reference Range Interpretation Comments UA Turbidity (test code = Clear (11/21/22 9:39 UA Turbidity) AM) [facility] AND [id number] 15:39:00 Test Item Value Reference Range Interpretation Comments UA Spec Grav (test code = UA Spec 1.014 1 Grav) [facility] AND [id number] 15:39:00 Test Item Value Reference Range Interpretation Comments UA pH (test code = UA pH) 6.0 1 5.0-8.0 [facility] AND [id number] 15:39:00 Test Item Value Reference Range Interpretation Comments UA Protein (test code = UA Protein) 30 mg/dL [facility] AND [id number] 15:39:00 Test Item Value Reference Range Interpretation Comments UA Glucose (test code = UA Negative mg/dL Glucose) [facility] AND [id number] 15:39:00 Test Item Value Reference Range Interpretation Comments UA Ketones (test code = UA Negative mg/dL Ketones) [facility] AND [id number] 15:39:00 Test Item Value Reference Range Interpretation Comments UA Bili (test code = Negative *NA*(11/21/22 UA Bili) 9:39 AM) [facility] AND [id number] 15:39:00 Test Item Value Reference Range Interpretation Comments UA Blood (test code = Negative (11/21/22 9:39 UA Blood) AM) [facility] AND [id number] 15:39:00 Test Item Value Reference Range Interpretation Comments UA Urobilinogen (test code = UA no gt 0.1-1.0 Urobilinogen) [facility] AND [id number] 15:39:00 Test Item Value Reference Range Interpretation Comments UA Nitrite (test code Negative (11/21/22 9:39 = UA Nitrite) AM) [facility] AND [id number] 15:39:00 Test Item Value Reference Range Interpretation Comments UA Leuk Est (test Negative (11/21/22 9:39 code = UA Leuk Est) AM) [facility] AND [id number] 15:39:00 Test Item Value Reference Range Interpretation Comments UA Sq Epi (test code = UA Sq Occasional /LPF Epi) [facility] AND [id number] 15:39:00 Test Item Value Reference Range Interpretation Comments UA WBC (test code = no gt See_Comment [Automa sheba message] The UA WBC) system which ge nerated this result transmit sheba reference range : <=5. The reference range was not used to interpr et this result as edy l/abnormal. [facility] AND [id number] 15:39:00 Test Item Value Reference Range Interpretation Comments UA RBC (test code = no gt See_Comment [Automa sheba message] The UA RBC) system which ge nerated this result transmit sheba reference range : <=2. The reference range was not used to interpr et this result as edy l/abnormal. [facility] [id number] 15:39:00 Test Item Value Reference Range Interpretation Comments U Amph Scr (test code Negative *NA*(11/21/22 = U Amph Scr) 9:39 AM) [facility] [id number] 15:39:00 Test Item Value Reference Range Interpretation Comments U Analilia Scr (test code Positive *ABN*(11/21/22 = U Analilia Scr) 9:39 AM) [facility] [id number] 15:39:00 Test Item Value Reference Range Interpretation Comments U Benzodiaz Scr (test Negative *NA*(11/21/22 code = U Benzodiaz Scr) 9:39 AM) [facility] [id number] 15:39:00 Test Item Value Reference Range Interpretation Comments U Cocaine Scr (test Negative *NA*(11/21/22 code = U Cocaine Scr) 9:39 AM) [facility] [id number] 15:39:00 Test Item Value Reference Range Interpretation Comments U Cannab Scr (test Negative *NA*(11/21/22 code = U Cannab Scr) 9:39 AM) [facility] [id number] 15:39:00 Test Item Value Reference Range Interpretation Comments U Opiate Scr (test Positive *ABN*(11/21/22 code = U Opiate Scr) 9:39 AM) [facility] [id number] 15:39:00 Test Item Value Reference Range Interpretation Comments U Phencyclidine Scr (test Negative code = U Phencyclidine *NA*(11/21/22 9:39 Scr) AM) [id number] 15:39:00 Test Item Value Reference Range Interpretation Comments UDS Note (test code = See Note (11/21/22 9:39 UDS Note) AM) [facility] [id number] 15:39:00 Test Item Value Reference Range Interpretation Comments U Amph Scr (test code Negative *NA*(11/21/22 = U Amph Scr) 9:39 AM) [facility] [id number] 15:39:00 Test Item Value Reference Range Interpretation Comments U Analilia Scr (test code Positive *ABN*(11/21/22 = U Analilia Scr) 9:39 AM) [facility] [id number] 15:39:00 Test Item Value Reference Range Interpretation Comments U Benzodiaz Scr (test Negative *NA*(11/21/22 code = U Benzodiaz Scr) 9:39 AM) [facility] [id number] 15:39:00 Test Item Value Reference Range Interpretation Comments U Cocaine Scr (test Negative *NA*(11/21/22 code = U Cocaine Scr) 9:39 AM) [facility] [id number] 15:39:00 Test Item Value Reference Range Interpretation Comments U Cannab Scr (test Negative *NA*(11/21/22 code = U Cannab Scr) 9:39 AM) [facility] [id number] 15:39:00 Test Item Value Reference Range Interpretation Comments U Opiate Scr (test Positive *ABN*(11/21/22 code = U Opiate Scr) 9:39 AM) [facility] [id number] 15:39:00 Test Item Value Reference Range Interpretation Comments U Phencyclidine Scr (test Negative code = U Phencyclidine *NA*(11/21/22 9:39 Scr) AM) [facility] [id number] 15:39:00 Test Item Value Reference Range Interpretation Comments UDS Note (test code = See Note (11/21/22 9:39 UDS Note) AM) [facility] [id number] 15:39:00 Test Item Value Reference Range Interpretation Comments Coronavirus (COVID-19) Not Detected (11/21/22 JONATHAN (test code = 9:39 AM) Coronavirus (COVID-19) JONATHAN) [facility] [id number] 15:39:00 Test Item Value Reference Range Interpretation Comments Coronavirus (COVID-19) Not Detected (11/21/22 JONATHAN (test code = 9:39 AM) Coronavirus (COVID-19) JONATHAN) [facility] [id number] 15:39:00 Test Item Value Reference Range Interpretation Comments UA Color (test code = Light Yellow UA Color) *NA*(11/21/22 9:39 AM) [facility] [id number] 15:39:00 Test Item Value Reference Range Interpretation Comments UA Turbidity (test code = Clear (11/21/22 9:39 UA Turbidity) AM) [facility] [id number] 15:39:00 Test Item Value Reference Range Interpretation Comments UA Spec Grav (test code = UA Spec 1.014 1 Grav) [facility] [id number] 15:39:00 Test Item Value Reference Range Interpretation Comments UA pH (test code = UA pH) 6.0 1 5.0-8.0 [facility] [id number] 15:39:00 Test Item Value Reference Range Interpretation Comments UA Protein (test code = UA Protein) 30 mg/dL [facility] [id number] 15:39:00 Test Item Value Reference Range Interpretation Comments UA Glucose (test code = UA Negative mg/dL Glucose) [facility] [id number] 15:39:00 Test Item Value Reference Range Interpretation Comments UA Ketones (test code = UA Negative mg/dL Ketones) [facility] [id number] 15:39:00 Test Item Value Reference Range Interpretation Comments UA Bili (test code = Negative *NA*(11/21/22 UA Bili) 9:39 AM) [facility] RaulURINE AND [id number] 15:39:00 Test Item Value Reference Range Interpretation Comments UA Blood (test code = Negative (11/21/22 9:39 UA Blood) AM) [facility] RaulURINE AND [id number] 15:39:00 Test Item Value Reference Range Interpretation Comments UA Urobilinogen (test code = UA no gt 0.1-1.0 Urobilinogen) [facility]ulURINE AND [id number] 15:39:00 Test Item Value Reference Range Interpretation Comments UA Nitrite (test code Negative (11/21/22 9:39 = UA Nitrite) AM) [facility] AND [id number] 15:39:00 Test Item Value Reference Range Interpretation Comments UA Leuk Est (test Negative (11/21/22 9:39 code = UA Leuk Est) AM) [facility] AND [id number] 15:39:00 Test Item Value Reference Range Interpretation Comments UA Sq Epi (test code = UA Sq Occasional /LPF Epi) [facility] AND [id number] 15:39:00 Test Item Value Reference Range Interpretation Comments UA WBC (test code = no gt See_Comment [Automa sheba message] The UA WBC) system which ge nerated this result transmit sheba reference range : <=5. The reference range was not used to interpr et this result as edy l/abnormal. [facility] AND [id number] 15:39:00 Test Item Value Reference Range Interpretation Comments UA RBC (test code = no gt See_Comment [Automa sheba message] The UA RBC) system which ge nerated this result transmit sheba reference range : <=2. The reference range was not used to interpr et this result as edy l/abnormal. [facility] AND [id number] 15:39:00 Test Item Value Reference Range Interpretation Comments UA Color (test code = Light Yellow UA Color) *NA*(11/21/22 9:39 AM) [facility] AND [id number] 15:39:00 Test Item Value Reference Range Interpretation Comments UA Turbidity (test code = Clear (11/21/22 9:39 UA Turbidity) AM) [facility] AND [id number] 15:39:00 Test Item Value Reference Range Interpretation Comments UA Spec Grav (test code = UA Spec 1.014 1 Grav) [facility] AND [id number] 15:39:00 Test Item Value Reference Range Interpretation Comments UA pH (test code = UA pH) 6.0 1 5.0-8.0 [facility] AND [id number] 15:39:00 Test Item Value Reference Range Interpretation Comments UA Protein (test code = UA Protein) 30 mg/dL [facility] AND [id number] 15:39:00 Test Item Value Reference Range Interpretation Comments UA Glucose (test code = UA Negative mg/dL Glucose) [facility] AND [id number] 15:39:00 Test Item Value Reference Range Interpretation Comments UA Ketones (test code = UA Negative mg/dL Ketones) [facility] AND [id number] 15:39:00 Test Item Value Reference Range Interpretation Comments UA Bili (test code = Negative *NA*(11/21/22 UA Bili) 9:39 AM) [facility] AND [id number] 15:39:00 Test Item Value Reference Range Interpretation Comments UA Blood (test code = Negative (11/21/22 9:39 UA Blood) AM) [facility] AND [id number] 15:39:00 Test Item Value Reference Range Interpretation Comments UA Urobilinogen (test code = UA no gt 0.1-1.0 Urobilinogen) [facility] AND [id number] 15:39:00 Test Item Value Reference Range Interpretation Comments UA Nitrite (test code Negative (11/21/22 9:39 = UA Nitrite) AM) [facility] AND [id number] 15:39:00 Test Item Value Reference Range Interpretation Comments UA Leuk Est (test Negative (11/21/22 9:39 code = UA Leuk Est) AM) [facility] AND [id number] 15:39:00 Test Item Value Reference Range Interpretation Comments UA Sq Epi (test code = UA Sq Occasional /LPF Epi) [facility] AND [id number] 15:39:00 Test Item Value Reference Range Interpretation Comments UA WBC (test code = no gt See_Comment [Automa sheba message] The UA WBC) system which ge nerated this result transmit sheba reference range : <=5. The reference range was not used to interpr et this result as edy l/abnormal. [facility] AND [id number] 15:39:00 Test Item Value Reference Range Interpretation Comments UA RBC (test code = no gt See_Comment [Automa sheba message] The UA RBC) system which ge nerated this result transmit sheba reference range : <=2. The reference range was not used to interpr et this result as edy l/abnormal. [facility] [employer]) [facility] [id number] 12:50:00 Test Item Value Reference Range Interpretation Comments ABO/Rh (test code = ABO/Rh) O POS [facility] [id number] 12:50:00 Test Item Value Reference Range Interpretation Comments Antibody Scrn (test Negative (11/21/22 6:50 code = Antibody Scrn) AM) [facility] CenterVjpgbboCZFKTFKSD0315-65-86 12:50:00 Test Item Value Reference Range Interpretation Comments Ethanol Lvl (test code = Ethanol Lvl) no gt [facility] CenterGvxugizTHWLLJCUS1061-50-10 12:50:00 Test Item Value Reference Range Interpretation Comments Etoh (%) (test code = Etoh (%)) no gt [facility] CenterPfmfsvlNSKRDJJKD4102-13-29 12:50:00 Test Item Value Reference Range Interpretation Comments Lactic Acid Lvl (test code = Lactic 0.7 0.5-2.2 Acid Lvl) [facility] CenterOgdvofbMDQEKTIUT6997-77-03 12:50:00 Test Item Value Reference Range Interpretation Comments Total Protein (test code = Total 6.1 6.4-8.4 Protein) [facility] CenterIwqwadyWVJEHPTYF0348-98-75 12:50:00 Test Item Value Reference Range Interpretation Comments Albumin Lvl (test code = Albumin Lvl) 2.9 3.5-5.0 [facility] CenterFftagxjPHRSWBUSP0279-38-03 12:50:00 Test Item Value Reference Range Interpretation Comments Globulin (test code = Globulin) 3.2 2.7-4.2 [facility] CenterVrulfdsMEXLMBYBU6491-89-12 12:50:00 Test Item Value Reference Range Interpretation Comments A/G Ratio (test code = A/G Ratio) 0.9 1 0.7-1.6 [facility] MuodxkhEOUTOJOZV8227-73-05 12:50:00 Test Item Value Reference Range Interpretation Comments ALT (test code = ALT) 16 See_Comment [Auto mated message] The system which ge nerated this result transmit sheba reference range : <=65. The reference range was not used to interpr et this result as edy l/abnormal. [facility] BeevillePlngvmqALHCEAQBL4087-46-38 12:50:00 Test Item Value Reference Range Interpretation Comments AST (test code = AST) 15 See_Comment [Auto mated message] The system which ge nerated this result transmit sheba reference range : <=37. The reference range was not used to interpr et this result as edy l/abnormal. [facility] KszdkuvAEUTURRQW3866-24-64 12:50:00 Test Item Value Reference Range Interpretation Comments Alk Phos (test code = Alk Phos) 96 39-136 [facility] BeevilleLrtbzyzETALTQSIQ7603-33-62 12:50:00 Test Item Value Reference Range Interpretation Comments Bili Total (test code = Bili Total) 0.2 0.2-1.3 [facility] BeevillePeicgylYSMQCSGFJ8896-92-98 12:50:00 Test Item Value Reference Range Interpretation Comments Bili Direct (test code no gt See_Comment [Aut omated message] The = Bili Direct) system which generated this result tra nsmitted reference range : <=0.3. The reference r christiano was not used to int erpret this result as edy l/abnormal. [facility] BeevilleAkyfiguQXBWPMDDE7606-08-65 12:50:00 Test Item Value Reference Range Interpretation Comments Bili Indirect Unable to See_Comment [Automated (test code = Bili Calculate message] T he system Indirect) which generated this result transmitted reference range : <=1.0. The reference range was not used to interpret this result as normal/abnormal . [facility] BeevilleHvjiibnAMNLKXXWH8320-77-35 12:50:00 Test Item Value Reference Range Interpretation Comments HS Troponin I (test code = HS Troponin 15 I) [facility] BeevilleJonpsmlOAKYHVFYX9966-85-12 12:50:00 Test Item Value Reference Range Interpretation Comments pH Justin (test code = pH Justin) 7.35 1 7.28-7.42 [facility] BeevilleJrlyvjjNZXICLOKD9013-14-07 12:50:00 Test Item Value Reference Range Interpretation Comments pCO2 Justin (test code = pCO2 Justin) 55 38-52 [place] 809593-02-21 12:50:00 Test Item Value Reference Range Interpretation Comments pO2 Justin (test code = pO2 Justin) 43 20-49 [place] 809593-02-21 12:50:00 Test Item Value Reference Range Interpretation Comments HCO3 Jutsin (test code = HCO3 Justin) 30 22-26 [place] 809593-02-21 12:50:00 Test Item Value Reference Range Interpretation Comments BE Justin (test code = BE Justin) 3 -2-2 [place] 809593-02-21 12:50:00 Test Item Value Reference Range Interpretation Comments O2 Sat Justin (calc) (test code = O2 Sat 75.9 40.0-70.0 Justin (calc)) [place] 809593-02-21 12:50:00 Test Item Value Reference Range Interpretation Comments Temp Justin (test code = Temp Justin) 37.0 [place] 884133-02-21 12:50:00 Test Item Value Reference Range Interpretation Comments ACT (TEG) Rapid (test code = ACT (TEG) 113 s 86-118 Rapid) [place] 884133-02-21 12:50:00 Test Item Value Reference Range Interpretation Comments Split Point Rapid (test code = Split 0.6 min Point Rapid) [place] 884133-02-21 12:50:00 Test Item Value Reference Range Interpretation Comments R-time Rapid (test code = R-time 0.7 min 0.4-0.7 Rapid) [place] 884133-02-21 12:50:00 Test Item Value Reference Range Interpretation Comments K-time Rapid (test code = K-time 1.1 min 0.6-2.3 Rapid) [place] [address]-02-21 12:50:00 Test Item Value Reference Range Interpretation Comments Angle Rapid (test code = Angle 78 degrees 64-80 Rapid) [place] 884133-02-21 12:50:00 Test Item Value Reference Range Interpretation Comments Max Amplitude Rapid (test code = Max 65 mm 52-71 Amplitude Rapid) [place] 884133-02-21 12:50:00 Test Item Value Reference Range Interpretation Comments G-value Rapid (test code = G-value 9.2 5.0-11.6 Rapid) [facility] BeevilleNapotnfAAFOYXHYDK3673-12-37 12:50:00 Test Item Value Reference Range Interpretation Comments Estimated % Lysis Rapid 0.0 See_Comment [Au tomated message] The (test code = Estimated syste m which generated % Lysis Rapid) this result t ransmitted reference range : <=7.5. The reference r christiano was not used to int erpret this result as normal/abnormal . [facility] BeevilleRzlrnzjTTZDZGCTLY9535-30-88 12:50:00 Test Item Value Reference Range Interpretation Comments Plt Morph (test code = See Note 1(11/21/22 Plt Morph) 6:50 AM) [facility] BeevilleQtasrckYRWIOCAPBR2267-18-15 12:50:00 Test Item Value Reference Range Interpretation Comments Stomatocyte (test code = Stomatocyte) slight [facility] Rebls ENIFIJM0073-23-94 12:50:00 Test Item Value Reference Range Interpretation Comments ABO/Rh (test code = ABO/Rh) O POS [facility] Rebls ONXDGJQ0926-44-50 12:50:00 Test Item Value Reference Range Interpretation Comments Antibody Scrn (test Negative (11/21/22 6:50 code = Antibody Scrn) AM) [facility] BeevilleCfwgbebDRPOLOCXQ8477-20-24 12:50:00 Test Item Value Reference Range Interpretation Comments Ethanol Lvl (test code = Ethanol Lvl) no gt [facility] PodtupuEMIHPAAJT0408-00-92 12:50:00 Test Item Value Reference Range Interpretation Comments Etoh (%) (test code = Etoh (%)) no gt [facility] KagnzejQPMAHOYYG3515-15-13 12:50:00 Test Item Value Reference Range Interpretation Comments Lactic Acid Lvl (test code = Lactic 0.7 0.5-2.2 Acid Lvl) [facility] BeevilleEmakcfcTGZLBFGUK8372-38-00 12:50:00 Test Item Value Reference Range Interpretation Comments Total Protein (test code = Total 6.1 6.4-8.4 Protein) [facility] BeevilleIpiefmrYJZHJSEZV6748-37-03 12:50:00 Test Item Value Reference Range Interpretation Comments Albumin Lvl (test code = Albumin Lvl) 2.9 3.5-5.0 [facility] BeevilleZltkjmyAWOWFRGDY3761-66-83 12:50:00 Test Item Value Reference Range Interpretation Comments Globulin (test code = Globulin) 3.2 2.7-4.2 [facility] BeevilleBpszswlAIGYWFKJX4121-94-88 12:50:00 Test Item Value Reference Range Interpretation Comments A/G Ratio (test code = A/G Ratio) 0.9 1 0.7-1.6 [place] 809593-02-21 12:50:00 Test Item Value Reference Range Interpretation Comments ALT (test code = ALT) 16 See_Comment [Auto mated message] The system which ge nerated this result transmit sheba reference range : <=65. The reference range was not used to interpr et this result as edy l/abnormal. [facility] BeevilleBxgzmveOTEQQPYHF3496-17-10 12:50:00 Test Item Value Reference Range Interpretation Comments AST (test code = AST) 15 See_Comment [Auto mated message] The system which ge nerated this result transmit sheba reference range : <=37. The reference range was not used to interpr et this result as edy l/abnormal. [facility] BeevilleFewvfwiLKOJEDSEZ0588-56-47 12:50:00 Test Item Value Reference Range Interpretation Comments Alk Phos (test code = Alk Phos) 96 39-136 [facility] BeevilleCzevjsgQIOAREDBF3248-27-72 12:50:00 Test Item Value Reference Range Interpretation Comments Bili Total (test code = Bili Total) 0.2 0.2-1.3 [facility] HospitalTsffijaNXHMHVTPL8219-48-85 12:50:00 Test Item Value Reference Range Interpretation Comments Bili Direct (test code no gt See_Comment [Aut omated message] The = Bili Direct) system which generated this result tra nsmitted reference range : <=0.3. The reference r christiano was not used to int erpret this result as edy l/abnormal. [facility] BeevilleQmcwcxfZRFKKBGLS7889-00-00 12:50:00 Test Item Value Reference Range Interpretation Comments Bili Indirect Unable to See_Comment [Automated (test code = Bili Calculate message] T he system Indirect) which generated this result transmitted reference range : <=1.0. The reference range was not used to interpret this result as normal/abnormal . [facility] BeevilleHcmvonjWAWPNERAI2794-89-11 12:50:00 Test Item Value Reference Range Interpretation Comments HS Troponin I (test code = HS Troponin 15 I) [facility] BeevilleWblgjwiYCXQPURTP9264-28-84 12:50:00 Test Item Value Reference Range Interpretation Comments pH Justin (test code = pH Justin) 7.35 1 7.28-7.42 [facility] CenterXbjermsSNOXJZAAL6722-82-87 12:50:00 Test Item Value Reference Range Interpretation Comments pCO2 Justin (test code = pCO2 Justin) 55 38-52 [place] 809593-02-21 12:50:00 Test Item Value Reference Range Interpretation Comments pO2 Justin (test code = pO2 Justin) 43 20-49 [place] [address]-02-21 12:50:00 Test Item Value Reference Range Interpretation Comments HCO3 Justin (test code = HCO3 Justin) 30 22-26 [facility] CenterYakceryLUSNBPZVK0056-79-51 12:50:00 Test Item Value Reference Range Interpretation Comments BE Justin (test code = BE Justin) 3 -2-2 [facility] CenterNomiaddLAUNWVUMM9581-19-42 12:50:00 Test Item Value Reference Range Interpretation Comments O2 Sat Justin (calc) (test code = O2 Sat 75.9 40.0-70.0 Justin (calc)) [facility] CenterVhyajywZLNPDWJQK9553-80-09 12:50:00 Test Item Value Reference Range Interpretation Comments Temp Justin (test code = Temp Justin) 37.0 [facility] CenterPedophrXLGLTLOGYJ4330-97-16 12:50:00 Test Item Value Reference Range Interpretation Comments ACT (TEG) Rapid (test code = ACT (TEG) 113 s 86-118 Rapid) [place] 884133-02-21 12:50:00 Test Item Value Reference Range Interpretation Comments Split Point Rapid (test code = Split 0.6 min Point Rapid) [place] 884133-02-21 12:50:00 Test Item Value Reference Range Interpretation Comments R-time Rapid (test code = R-time 0.7 min 0.4-0.7 Rapid) [place] 884133-02-21 12:50:00 Test Item Value Reference Range Interpretation Comments K-time Rapid (test code = K-time 1.1 min 0.6-2.3 Rapid) [place] 884133-02-21 12:50:00 Test Item Value Reference Range Interpretation Comments Angle Rapid (test code = Angle 78 degrees 64-80 Rapid) [facility] CenterTvujoumDVDTBMPVHW8734-95-03 12:50:00 Test Item Value Reference Range Interpretation Comments Max Amplitude Rapid (test code = Max 65 mm 52-71 Amplitude Rapid) [facility]evilleHhwryupUXDEMBLZLT0623-15-66 12:50:00 Test Item Value Reference Range Interpretation Comments G-value Rapid (test code = G-value 9.2 5.0-11.6 Rapid) [facility] HospitalMlpvoeaBWJJHIOPYR8969-10-18 12:50:00 Test Item Value Reference Range Interpretation Comments Estimated % Lysis Rapid 0.0 See_Comment [Au tomated message] The (test code = Estimated syste m which generated % Lysis Rapid) this result t ransmitted reference range : <=7.5. The reference r christiano was not used to int erpret this result as normal/abnormal . [facility] VkyqrxrIWLUDNOSZN7908-26-97 12:50:00 Test Item Value Reference Range Interpretation Comments Plt Morph (test code = See Note 1(11/21/22 Plt Morph) 6:50 AM) [facility] WfrpjjgJZCXTYWIYL5849-04-87 12:50:00 Test Item Value Reference Range Interpretation Comments Stomatocyte (test code = Stomatocyte) slight [facility] Rebls HRDKRNG5774-31-18 12:50:00 Test Item Value Reference Range Interpretation Comments ABO/Rh (test code = ABO/Rh) O POS [facility] Rebls ZUOUCIF9429-87-98 12:50:00 Test Item Value Reference Range Interpretation Comments Antibody Scrn (test Negative (11/21/22 6:50 code = Antibody Scrn) AM) [facility] Rebls QIGJZPB8507-07-52 12:50:00 Test Item Value Reference Range Interpretation Comments ABO/Rh (test code = ABO/Rh) O POS [facility] Rebls QNHEOYM6270-51-92 12:50:00 Test Item Value Reference Range Interpretation Comments Antibody Scrn (test Negative (11/21/22 6:50 code = Antibody Scrn) AM) [facility] DobangoCARDIAC IKIMAOD9531-37-39 12:50:00 Test Item Value Reference Range Interpretation Comments HS Troponin I (test code = HS Troponin 15 I) [facility] [place] AFRDW4514-80-94 12:50:00 Test Item Value Reference Range Interpretation Comments Glucose Lvl (test code = Glucose Lvl) 99 70-99 [facility] [place] RXOIV1421-22-07 12:50:00 Test Item Value Reference Range Interpretation Comments BUN (test code = BUN) 38 7-22 [place] 608593-02-21 12:50:00 Test Item Value Reference Range Interpretation Comments Creatinine Lvl (test code = Creatinine 2.38 0.50-1.40 Lvl) [facility]2023-02-21 12:50:00 Test Item Value Reference Range Interpretation Comments Sodium Lvl (test code = Sodium Lvl) 140 135-145 [place] 608593-02-21 12:50:00 Test Item Value Reference Range Interpretation Comments Potassium Lvl (test code = Potassium 3.9 3.5-5.1 Lvl) [facility]2023-02-21 12:50:00 Test Item Value Reference Range Interpretation Comments Chloride Lvl (test code = Chloride Lvl) 107 95-109 [facility]2023-02-21 12:50:00 Test Item Value Reference Range Interpretation Comments CO2 (test code = CO2) 27 24-32 [place] 608593-02-21 12:50:00 Test Item Value Reference Range Interpretation Comments Calcium Lvl (test code = Calcium Lvl) 8.1 8.5-10.5 [facility]2023-02-21 12:50:00 Test Item Value Reference Range Interpretation Comments AGAP (test code = AGAP) 9.9 10.0-20.0 [facility]2023-02-21 12:50:00 Test Item Value Reference Range Interpretation Comments eGFR (test code = eGFR) 20 [place] 608593-02-21 12:50:00 Test Item Value Reference Range Interpretation Comments Lactic Acid Lvl (test code = Lactic 0.7 0.5-2.2 Acid Lvl) [place] 608593-02-21 12:50:00 Test Item Value Reference Range Interpretation Comments Total Protein (test code = Total 6.1 6.4-8.4 Protein) [place] 608593-02-21 12:50:00 Test Item Value Reference Range Interpretation Comments Albumin Lvl (test code = Albumin Lvl) 2.9 3.5-5.0 [place] 608593-02-21 12:50:00 Test Item Value Reference Range Interpretation Comments Globulin (test code = Globulin) 3.2 2.7-4.2 [place] [address]-02-21 12:50:00 Test Item Value Reference Range Interpretation Comments A/G Ratio (test code = A/G Ratio) 0.9 1 0.7-1.6 [address]02-21 12:50:00 Test Item Value Reference Range Interpretation Comments ALT (test code = ALT) 16 See_Comment [Auto mated message] The system which ge nerated this result transmit sheba reference range : <=65. The reference range was not used to interpr et this result as edy l/abnormal. [address]02-21 12:50:00 Test Item Value Reference Range Interpretation Comments AST (test code = AST) 15 See_Comment [Auto mated message] The system which ge nerated this result transmit sheba reference range : <=37. The reference range was not used to interpr et this result as edy l/abnormal. [address]02-21 12:50:00 Test Item Value Reference Range Interpretation Comments Alk Phos (test code = Alk Phos) 96 39-136 [place] [address]-02-21 12:50:00 Test Item Value Reference Range Interpretation Comments Bili Total (test code = Bili Total) 0.2 0.2-1.3 [place] [address]-02-21 12:50:00 Test Item Value Reference Range Interpretation Comments Bili Direct (test code no gt See_Comment [Aut omated message] The = Bili Direct) system which generated this result tra nsmitted reference range : <=0.3. The reference r christiano was not used to int erpret this result as edy l/abnormal. [place] [address]-02-21 12:50:00 Test Item Value Reference Range Interpretation Comments Bili Indirect Unable to See_Comment [Automated (test code = Bili Calculate message] T he system Indirect) which generated this result transmitted reference range : <=1.0. The reference range was not used to interpret this result as normal/abnormal . [place] [address]-02-21 12:50:00 Test Item Value Reference Range Interpretation Comments Ethanol Lvl (test code = Ethanol Lvl) no gt [place] [address]-02-21 12:50:00 Test Item Value Reference Range Interpretation Comments Etoh (%) (test code = Etoh (%)) no gt [facility] CenterHxwenwlYSYPTJCLQ8671-08-74 12:50:00 Test Item Value Reference Range Interpretation Comments Lactic Acid Lvl (test code = Lactic 0.7 0.5-2.2 Acid Lvl) [facility] CenterJizqpfbOXNJBDAYI6327-23-23 12:50:00 Test Item Value Reference Range Interpretation Comments Total Protein (test code = Total 6.1 6.4-8.4 Protein) [facility] CenterYuscrxrRGSDXDHSR7742-85-91 12:50:00 Test Item Value Reference Range Interpretation Comments Albumin Lvl (test code = Albumin Lvl) 2.9 3.5-5.0 [place] 809593-02-21 12:50:00 Test Item Value Reference Range Interpretation Comments Globulin (test code = Globulin) 3.2 2.7-4.2 [place] 809593-02-21 12:50:00 Test Item Value Reference Range Interpretation Comments A/G Ratio (test code = A/G Ratio) 0.9 1 0.7-1.6 [place] 809593-02-21 12:50:00 Test Item Value Reference Range Interpretation Comments ALT (test code = ALT) 16 See_Comment [Auto mated message] The system which ge nerated this result transmit sheba reference range : <=65. The reference range was not used to interpr et this result as edy l/abnormal. [facility] CenterIqtiqdlKNCNVCMLX6899-85-36 12:50:00 Test Item Value Reference Range Interpretation Comments AST (test code = AST) 15 See_Comment [Auto mated message] The system which ge nerated this result transmit sheba reference range : <=37. The reference range was not used to interpr et this result as edy l/abnormal. [facility] CenterXxjvuyvMYMSYPAUD9828-70-93 12:50:00 Test Item Value Reference Range Interpretation Comments Alk Phos (test code = Alk Phos) 96 39-136 [facility] CenterDtykbbaINLVOPYMX4097-43-13 12:50:00 Test Item Value Reference Range Interpretation Comments Bili Total (test code = Bili Total) 0.2 0.2-1.3 [place] 809593-02-21 12:50:00 Test Item Value Reference Range Interpretation Comments Bili Direct (test code no gt See_Comment [Aut omated message] The = Bili Direct) system which generated this result tra nsmitted reference range : <=0.3. The reference r christiano was not used to int erpret this result as edy l/abnormal. [facility] CenterRqjzvucWAECOYJWG3967-82-02 12:50:00 Test Item Value Reference Range Interpretation Comments Bili Indirect Unable to See_Comment [Automated (test code = Bili Calculate message] T he system Indirect) which generated this result transmitted reference range : <=1.0. The reference range was not used to interpret this result as normal/abnormal . [facility] CenterJstgthjMKUCYUWBQ9408-79-88 12:50:00 Test Item Value Reference Range Interpretation Comments HS Troponin I (test code = HS Troponin 15 I) [facility] CenterGejkrdoTHPAVQEVY7149-63-48 12:50:00 Test Item Value Reference Range Interpretation Comments pH Justin (test code = pH Justin) 7.35 1 7.28-7.42 [place] 809593-02-21 12:50:00 Test Item Value Reference Range Interpretation Comments pCO2 Justin (test code = pCO2 Justin) 55 38-52 [place] 809593-02-21 12:50:00 Test Item Value Reference Range Interpretation Comments pO2 Justin (test code = pO2 Justin) 43 20-49 [facility] CenterMjbqlfyKHGXGOAWX2656-62-14 12:50:00 Test Item Value Reference Range Interpretation Comments HCO3 Justin (test code = HCO3 Justin) 30 22-26 [place] 809593-02-21 12:50:00 Test Item Value Reference Range Interpretation Comments BE Justin (test code = BE Justin) 3 -2-2 [place] 809593-02-21 12:50:00 Test Item Value Reference Range Interpretation Comments O2 Sat Justin (calc) (test code = O2 Sat 75.9 40.0-70.0 Justin (calc)) [facility] CenterMejqkrkMFNUYUUSC9154-35-15 12:50:00 Test Item Value Reference Range Interpretation Comments Temp Justin (test code = Temp Justin) 37.0 [place] 884133-02-21 12:50:00 Test Item Value Reference Range Interpretation Comments ACT (TEG) Rapid (test code = ACT (TEG) 113 s 86-118 Rapid) [facility] CenterIvlajrmSCAXIPOOBE1772-84-60 12:50:00 Test Item Value Reference Range Interpretation Comments Split Point Rapid (test code = Split 0.6 min Point Rapid) [facility] CenterNqymfptNTKCOXIACK9550-81-95 12:50:00 Test Item Value Reference Range Interpretation Comments R-time Rapid (test code = R-time 0.7 min 0.4-0.7 Rapid) [place] 884133-02-21 12:50:00 Test Item Value Reference Range Interpretation Comments K-time Rapid (test code = K-time 1.1 min 0.6-2.3 Rapid) [place] [address]-02-21 12:50:00 Test Item Value Reference Range Interpretation Comments Angle Rapid (test code = Angle 78 degrees 64-80 Rapid) [place] [address]-02-21 12:50:00 Test Item Value Reference Range Interpretation Comments Max Amplitude Rapid (test code = Max 65 mm 52-71 Amplitude Rapid) [place] [address]-02-21 12:50:00 Test Item Value Reference Range Interpretation Comments G-value Rapid (test code = G-value 9.2 5.0-11.6 Rapid) [place] 884133-02-21 12:50:00 Test Item Value Reference Range Interpretation Comments Estimated % Lysis Rapid 0.0 See_Comment [Au tomated message] The (test code = Estimated syste m which generated % Lysis Rapid) this result t ransmitted reference range : <=7.5. The reference r christiano was not used to int erpret this result as normal/abnormal . [facility]ionxNXKTEDNQED4927-62-46 12:50:00 Test Item Value Reference Range Interpretation Comments Plt Morph (test code = See Note 1(11/21/22 Plt Morph) 6:50 AM) [place] 884133-02-21 12:50:00 Test Item Value Reference Range Interpretation Comments Stomatocyte (test code = Stomatocyte) slight [place] [address]-02-21 12:50:00 Test Item Value Reference Range Interpretation Comments WBC X 10x3 (test code = WBC X 10x3) 8.7 3.7-10.4 [place] [address]-02-21 12:50:00 Test Item Value Reference Range Interpretation Comments RBC X 10x6 (test code = RBC X 10x6) 3.56 4.20-5.40 [place] [address]-02-21 12:50:00 Test Item Value Reference Range Interpretation Comments Hgb (test code = Hgb) 10.4 12.0-16.0 [place] 884133-02-21 12:50:00 Test Item Value Reference Range Interpretation Comments Hct (test code = Hct) 32.3 36.0-48.0 [place] [address]-02-21 12:50:00 Test Item Value Reference Range Interpretation Comments MCV (test code = MCV) 90.8 80.0-98.0 [place] 884133-02-21 12:50:00 Test Item Value Reference Range Interpretation Comments MCH (test code = MCH) 29.3 pg 27.0-31.0 [place] 884133-02-21 12:50:00 Test Item Value Reference Range Interpretation Comments MCHC (test code = MCHC) 32.2 32.0-36.0 [place] 884133-02-21 12:50:00 Test Item Value Reference Range Interpretation Comments RDW (test code = RDW) 13.7 11.5-14.5 [place] [address]-02-21 12:50:00 Test Item Value Reference Range Interpretation Comments Platelet (test code = Platelet) 137 133-450 [place] 884133-02-21 12:50:00 Test Item Value Reference Range Interpretation Comments MPV (test code = MPV) 7.9 7.4-10.4 [place] [address]-02-21 12:50:00 Test Item Value Reference Range Interpretation Comments ACT (TEG) Rapid (test code = ACT (TEG) 113 s 86-118 Rapid) [place] 884133-02-21 12:50:00 Test Item Value Reference Range Interpretation Comments Split Point Rapid (test code = Split 0.6 min Point Rapid) [place] [address]-02-21 12:50:00 Test Item Value Reference Range Interpretation Comments R-time Rapid (test code = R-time 0.7 min 0.4-0.7 Rapid) [place] [address]-02-21 12:50:00 Test Item Value Reference Range Interpretation Comments K-time Rapid (test code = K-time 1.1 min 0.6-2.3 Rapid) [place] [address]-02-21 12:50:00 Test Item Value Reference Range Interpretation Comments Angle Rapid (test code = Angle 78 degrees 64-80 Rapid) [place] 884133-02-21 12:50:00 Test Item Value Reference Range Interpretation Comments Max Amplitude Rapid (test code = Max 65 mm 52-71 Amplitude Rapid) [place] [address]-02-21 12:50:00 Test Item Value Reference Range Interpretation Comments G-value Rapid (test code = G-value 9.2 5.0-11.6 Rapid) [place] 884133-02-21 12:50:00 Test Item Value Reference Range Interpretation Comments Estimated % Lysis Rapid 0.0 See_Comment [Au tomated message] The (test code = Estimated syste m which generated % Lysis Rapid) this result t ransmitted reference range : <=7.5. The reference r christiano was not used to int erpret this result as normal/abnormal . [place] 884133-02-21 12:50:00 Test Item Value Reference Range Interpretation Comments Plt Morph (test code = See Note 1(11/21/22 Plt Morph) 6:50 AM) [place] 884133-02-21 12:50:00 Test Item Value Reference Range Interpretation Comments Segs (test code = Segs) 64.1 45.0-75.0 [place] 884133-02-21 12:50:00 Test Item Value Reference Range Interpretation Comments Lymphocytes (test code = Lymphocytes) 22.0 20.0-40.0 [place] [address]-02-21 12:50:00 Test Item Value Reference Range Interpretation Comments Monocytes (test code = Monocytes) 8.3 2.0-12.0 [place] [address]-02-21 12:50:00 Test Item Value Reference Range Interpretation Comments Eosinophils (test code = 4.7 See_Comment [A utomated message] The Eosinophils) system which ge nerated this result tra nsmitted reference range : <=4.0. The reference r christiano was not used to int erpret this result as normal/abnormal . [place] 884133-02-21 12:50:00 Test Item Value Reference Range Interpretation Comments Basophils (test code = 0.9 See_Comment [Aut omated message] The Basophils) system which ge nerated this result tra nsmitted reference range : <=1.0. The reference r christiano was not used to int erpret this result as normal/abnormal . [facility] CenterYnkmervXRGDYXSREJ0032-42-60 12:50:00 Test Item Value Reference Range Interpretation Comments Neutrophils # (test code = Neutrophils 5.6 1.5-8.1 #) [facility] CenterDuyoryvVAHXKJHNIU8866-70-51 12:50:00 Test Item Value Reference Range Interpretation Comments Lymphocytes # (test code = Lymphocytes 1.9 1.0-5.5 #) [facility] CenterIowvjhvRKZIVBPPGY9822-32-40 12:50:00 Test Item Value Reference Range Interpretation Comments Monocytes # (test code 0.7 See_Comment [Aut omated message] The = Monocytes #) system which generated this result tra nsmitted reference range : <=0.8. The reference r christiano was not used to int erpret this result as normal/abnormal . [facility] CenterUcorlkrOJYTJULQZI7623-78-43 12:50:00 Test Item Value Reference Range Interpretation Comments Eosinophils # (test code 0.4 See_Comment [A utomated message] The = Eosinophils #) system whic h generated this result tra nsmitted reference range : <=0.5. The reference r christiano was not used to int erpret this result as normal/abnormal . [facility] CenterRfswgsyVVVDBXXRRX1987-19-45 12:50:00 Test Item Value Reference Range Interpretation Comments Basophils # (test code 0.1 See_Comment [Aut omated message] The = Basophils #) system which generated this result tra nsmitted reference range : <=0.2. The reference r christiano was not used to int erpret this result as normal/abnormal . [facility] CenterWglvmtsPKQUCWQZTQ4310-77-59 12:50:00 Test Item Value Reference Range Interpretation Comments Stomatocyte (test code = Stomatocyte) [facility] HospitalHvpiwllRKXQYZNNPD7122-45-94 12:50:00 Test Item Value Reference Range Interpretation Comments Ethanol Lvl (test code = Ethanol Lvl) [facility] HospitalFsttjyhMLBNDDDYSH5539-02-01 12:50:00 Test Item Value Reference Range Interpretation Comments Etoh (%) (test code = Etoh (%)) no gt [facility] HospitalBLBioapter BANK ZOEQZUZ5154-09-70 12:50:00 Test Item Value Reference Range Interpretation Comments ABO/Rh (test code = ABO/Rh) O POS [facility] Rebls [id number] 12:50:00 Test Item Value Reference Range Interpretation Comments Antibody Scrn (test Negative (11/21/22 6:50 code = Antibody Scrn) AM) [facility] Rebls [id number] 12:50:00 Test Item Value Reference Range Interpretation Comments ABO/Rh (test code = ABO/Rh) O POS [facility] Rebls [id number] 12:50:00 Test Item Value Reference Range Interpretation Comments Antibody Scrn (test Negative (11/21/22 6:50 code = Antibody Scrn) AM) [facility] [place]ARD[place] NSZNXQF9973-16-44 12:50:00 Test Item Value Reference Range Interpretation Comments HS Troponin I (test code = HS Troponin 15 I) [facility] [employer] [id number] 12:50:00 Test Item Value Reference Range Interpretation Comments Glucose Lvl (test code = Glucose Lvl) 99 70-99 [facility] [place] [id number] 12:50:00 Test Item Value Reference Range Interpretation Comments BUN (test code = BUN) 38 7-22 [facility] [employer] [id number] 12:50:00 Test Item Value Reference Range Interpretation Comments Creatinine Lvl (test code = Creatinine 2.38 0.50-1.40 Lvl) [facility] [place] [id number] 12:50:00 Test Item Value Reference Range Interpretation Comments Sodium Lvl (test code = Sodium Lvl) 140 135-145 [facility] [employer]2023-02-21 12:50:00 Test Item Value Reference Range Interpretation Comments Potassium Lvl (test code = Potassium 3.9 3.5-5.1 Lvl) [facility] [employer] [id number] 12:50:00 Test Item Value Reference Range Interpretation Comments Chloride Lvl (test code = Chloride Lvl) 107 95-109 [facility] [employer]2023-02-21 12:50:00 Test Item Value Reference Range Interpretation Comments CO2 (test code = CO2) 27 24-32 [facility] [employer]2023-02-21 12:50:00 Test Item Value Reference Range Interpretation Comments Calcium Lvl (test code = Calcium Lvl) 8.1 8.5-10.5 [place] 608593-02-21 12:50:00 Test Item Value Reference Range Interpretation Comments AGAP (test code = AGAP) 9.9 10.0-20.0 [place] 608593-02-21 12:50:00 Test Item Value Reference Range Interpretation Comments eGFR (test code = eGFR) 20 [place] 608593-02-21 12:50:00 Test Item Value Reference Range Interpretation Comments Lactic Acid Lvl (test code = Lactic 0.7 0.5-2.2 Acid Lvl) [place] 608593-02-21 12:50:00 Test Item Value Reference Range Interpretation Comments Total Protein (test code = Total 6.1 6.4-8.4 Protein) [place] 608593-02-21 12:50:00 Test Item Value Reference Range Interpretation Comments Albumin Lvl (test code = Albumin Lvl) 2.9 3.5-5.0 [place] 608593-02-21 12:50:00 Test Item Value Reference Range Interpretation Comments Globulin (test code = Globulin) 3.2 2.7-4.2 [place] 608593-02-21 12:50:00 Test Item Value Reference Range Interpretation Comments A/G Ratio (test code = A/G Ratio) 0.9 1 0.7-1.6 [place] 608593-02-21 12:50:00 Test Item Value Reference Range Interpretation Comments ALT (test code = ALT) 16 See_Comment [Auto mated message] The system which ge nerated this result transmit sheba reference range : <=65. The reference range was not used to interpr et this result as edy l/abnormal. [place] 608593-02-21 12:50:00 Test Item Value Reference Range Interpretation Comments AST (test code = AST) 15 See_Comment [Auto mated message] The system which ge nerated this result transmit sheba reference range : <=37. The reference range was not used to interpr et this result as edy l/abnormal. [place] 608593-02-21 12:50:00 Test Item Value Reference Range Interpretation Comments Alk Phos (test code = Alk Phos) 96 39-136 [place] 608593-02-21 12:50:00 Test Item Value Reference Range Interpretation Comments Bili Total (test code = Bili Total) 0.2 0.2-1.3 [facility] [id number] 12:50:00 Test Item Value Reference Range Interpretation Comments Bili Direct (test code no gt See_Comment [Aut omated message] The = Bili Direct) system which generated this result tra nsmitted reference range : <=0.3. The reference r christiano was not used to int erpret this result as edy l/abnormal. [facility] [id number] 12:50:00 Test Item Value Reference Range Interpretation Comments Bili Indirect Unable to See_Comment [Automated (test code = Bili Calculate message] T he system Indirect) which generated this result transmitted reference range : <=1.0. The reference range was not used to interpret this result as normal/abnormal . [facility]YwoxehhQJACZYYDQ4158-35-71 12:50:00 Test Item Value Reference Range Interpretation Comments Ethanol Lvl (test code = Ethanol Lvl) no gt [facility] CenterZorzwlqSXXAZAAAH9221-05-32 12:50:00 Test Item Value Reference Range Interpretation Comments Etoh (%) (test code = Etoh (%)) no gt [facility] CenterCoouwogMPPLDTCDP3336-47-91 12:50:00 Test Item Value Reference Range Interpretation Comments Lactic Acid Lvl (test code = Lactic 0.7 0.5-2.2 Acid Lvl) [facility] CenterMqbrgdqKYTMOTNZI7351-33-07 12:50:00 Test Item Value Reference Range Interpretation Comments Total Protein (test code = Total 6.1 6.4-8.4 Protein) [facility] CenterUcpbcghTQZWTBZYE9169-82-86 12:50:00 Test Item Value Reference Range Interpretation Comments Albumin Lvl (test code = Albumin Lvl) 2.9 3.5-5.0 [place] 809593-02-21 12:50:00 Test Item Value Reference Range Interpretation Comments Globulin (test code = Globulin) 3.2 2.7-4.2 [place] 809593-02-21 12:50:00 Test Item Value Reference Range Interpretation Comments A/G Ratio (test code = A/G Ratio) 0.9 1 0.7-1.6 [place] 809593-02-21 12:50:00 Test Item Value Reference Range Interpretation Comments ALT (test code = ALT) 16 See_Comment [Auto mated message] The system which ge nerated this result transmit sheba reference range : <=65. The reference range was not used to interpr et this result as edy l/abnormal. [facility]omtasaDMYOCALUR2090[facility] 12:50:00 Test Item Value Reference Range Interpretation Comments AST (test code = AST) 15 See_Comment [Auto mated message] The system which ge nerated this result transmit sheba reference range : <=37. The reference range was not used to interpr et this result as edy l/abnormal. [facility]evilleEqjhhyfDHMTJCKRB2752-17-33 12:50:00 Test Item Value Reference Range Interpretation Comments Alk Phos (test code = Alk Phos) 96 39-136 [facility] BeevilleLmzevaxIYFJYUYIV6779-58-79 12:50:00 Test Item Value Reference Range Interpretation Comments Bili Total (test code = Bili Total) 0.2 0.2-1.3 [facility]evilleFmyhfutQYQXKGOQW5616-91-17 12:50:00 Test Item Value Reference Range Interpretation Comments Bili Direct (test code no gt See_Comment [Aut omated message] The = Bili Direct) system which generated this result tra nsmitted reference range : <=0.3. The reference r christiano was not used to int erpret this result as edy l/abnormal. [facility] BeevilleTbghcldQUTFHPLBL1780-26-90 12:50:00 Test Item Value Reference Range Interpretation Comments Bili Indirect Unable to See_Comment [Automated (test code = Bili Calculate message] T he system Indirect) which generated this result transmitted reference range : <=1.0. The reference range was not used to interpret this result as normal/abnormal . [facility] BeevilleZxgdwejWZBZMAHYB1640-12-96 12:50:00 Test Item Value Reference Range Interpretation Comments HS Troponin I (test code = HS Troponin 15 I) [facility] BeevilleJajbvrmVYHQLBMDI5963-81-21 12:50:00 Test Item Value Reference Range Interpretation Comments pH Justin (test code = pH Justin) 7.35 1 7.28-7.42 [facility] BeevilleNqyyvmeSJGFQAUHS1764-34-95 12:50:00 Test Item Value Reference Range Interpretation Comments pCO2 Justin (test code = pCO2 Justin) 55 38-52 [facility] BeevilleQyojslzVMCUVDMEV8499-59-93 12:50:00 Test Item Value Reference Range Interpretation Comments pO2 Justin (test code = pO2 Justin) 43 20-49 [facility] CenterUgrwflxPMMSSPXXI2245-90-66 12:50:00 Test Item Value Reference Range Interpretation Comments HCO3 Justin (test code = HCO3 Justin) 30 22-26 [place] [address]-02-21 12:50:00 Test Item Value Reference Range Interpretation Comments BE Justin (test code = BE Justin) 3 -2-2 [place] 809593-02-21 12:50:00 Test Item Value Reference Range Interpretation Comments O2 Sat Justin (calc) (test code = O2 Sat 75.9 40.0-70.0 Justin (calc)) [place] 809593-02-21 12:50:00 Test Item Value Reference Range Interpretation Comments Temp Justin (test code = Temp Justin) 37.0 [place] 884133-02-21 12:50:00 Test Item Value Reference Range Interpretation Comments ACT (TEG) Rapid (test code = ACT (TEG) 113 s 86-118 Rapid) [place] 884133-02-21 12:50:00 Test Item Value Reference Range Interpretation Comments Split Point Rapid (test code = Split 0.6 min Point Rapid) [place] 884133-02-21 12:50:00 Test Item Value Reference Range Interpretation Comments R-time Rapid (test code = R-time 0.7 min 0.4-0.7 Rapid) [place] 884133-02-21 12:50:00 Test Item Value Reference Range Interpretation Comments K-time Rapid (test code = K-time 1.1 min 0.6-2.3 Rapid) [place] 884133-02-21 12:50:00 Test Item Value Reference Range Interpretation Comments Angle Rapid (test code = Angle 78 degrees 64-80 Rapid) [place] 884133-02-21 12:50:00 Test Item Value Reference Range Interpretation Comments Max Amplitude Rapid (test code = Max 65 mm 52-71 Amplitude Rapid) [place] 884133-02-21 12:50:00 Test Item Value Reference Range Interpretation Comments G-value Rapid (test code = G-value 9.2 5.0-11.6 Rapid) [place] 884133-02-21 12:50:00 Test Item Value Reference Range Interpretation Comments Estimated % Lysis Rapid 0.0 See_Comment [Au tomated message] The (test code = Estimated syste m which generated % Lysis Rapid) this result t ransmitted reference range : <=7.5. The reference r christiano was not used to int erpret this result as normal/abnormal . [place] 884133-02-21 12:50:00 Test Item Value Reference Range Interpretation Comments Plt Morph (test code = See Note 1(11/21/22 Plt Morph) 6:50 AM) [place] 884133-02-21 12:50:00 Test Item Value Reference Range Interpretation Comments Stomatocyte (test code = Stomatocyte) slight [place] 884133-02-21 12:50:00 Test Item Value Reference Range Interpretation Comments WBC X 10x3 (test code = WBC X 10x3) 8.7 3.7-10.4 [place] 884133-02-21 12:50:00 Test Item Value Reference Range Interpretation Comments RBC X 10x6 (test code = RBC X 10x6) 3.56 4.20-5.40 [place] 884133-02-21 12:50:00 Test Item Value Reference Range Interpretation Comments Hgb (test code = Hgb) 10.4 12.0-16.0 [place] 884133-02-21 12:50:00 Test Item Value Reference Range Interpretation Comments Hct (test code = Hct) 32.3 36.0-48.0 [place] 884133-02-21 12:50:00 Test Item Value Reference Range Interpretation Comments MCV (test code = MCV) 90.8 80.0-98.0 [place] 884133-02-21 12:50:00 Test Item Value Reference Range Interpretation Comments MCH (test code = MCH) 29.3 pg 27.0-31.0 [place] [address]-02-21 12:50:00 Test Item Value Reference Range Interpretation Comments MCHC (test code = MCHC) 32.2 32.0-36.0 [place] [address]-02-21 12:50:00 Test Item Value Reference Range Interpretation Comments RDW (test code = RDW) 13.7 11.5-14.5 [place] 884133-02-21 12:50:00 Test Item Value Reference Range Interpretation Comments Platelet (test code = Platelet) 137 133-450 [facility] CenterVioxmcnBSVEIAPGWT6824-00-40 12:50:00 Test Item Value Reference Range Interpretation Comments MPV (test code = MPV) 7.9 7.4-10.4 [place] 884133-02-21 12:50:00 Test Item Value Reference Range Interpretation Comments ACT (TEG) Rapid (test code = ACT (TEG) 113 s 86-118 Rapid) [place] 884133-02-21 12:50:00 Test Item Value Reference Range Interpretation Comments Split Point Rapid (test code = Split 0.6 min Point Rapid) [place] 884133-02-21 12:50:00 Test Item Value Reference Range Interpretation Comments R-time Rapid (test code = R-time 0.7 min 0.4-0.7 Rapid) [place] 884133-02-21 12:50:00 Test Item Value Reference Range Interpretation Comments K-time Rapid (test code = K-time 1.1 min 0.6-2.3 Rapid) [place] 884133-02-21 12:50:00 Test Item Value Reference Range Interpretation Comments Angle Rapid (test code = Angle 78 degrees 64-80 Rapid) [facility] CenterXhyfewiMTQXZEUIAB4851-06-30 12:50:00 Test Item Value Reference Range Interpretation Comments Max Amplitude Rapid (test code = Max 65 mm 52-71 Amplitude Rapid) [place] 884133-02-21 12:50:00 Test Item Value Reference Range Interpretation Comments G-value Rapid (test code = G-value 9.2 5.0-11.6 Rapid) [place] [address]-02-21 12:50:00 Test Item Value Reference Range Interpretation Comments Estimated % Lysis Rapid 0.0 See_Comment [Au tomated message] The (test code = Estimated syste m which generated % Lysis Rapid) this result t ransmitted reference range : <=7.5. The reference r christiano was not used to int erpret this result as normal/abnormal . [place] 884133-02-21 12:50:00 Test Item Value Reference Range Interpretation Comments Plt Morph (test code = See Note 1(11/21/22 Plt Morph) 6:50 AM) [place] [address]-02-21 12:50:00 Test Item Value Reference Range Interpretation Comments Segs (test code = Segs) 64.1 45.0-75.0 [place] 884133-02-21 12:50:00 Test Item Value Reference Range Interpretation Comments Lymphocytes (test code = Lymphocytes) 22.0 20.0-40.0 [place] [address]-02-21 12:50:00 Test Item Value Reference Range Interpretation Comments Monocytes (test code = Monocytes) 8.3 2.0-12.0 [place] [address]-02-21 12:50:00 Test Item Value Reference Range Interpretation Comments Eosinophils (test code = 4.7 See_Comment [A utomated message] The Eosinophils) system which ge nerated this result tra nsmitted reference range : <=4.0. The reference r christiano was not used to int erpret this result as normal/abnormal . [place] 884133-02-21 12:50:00 Test Item Value Reference Range Interpretation Comments Basophils (test code = 0.9 See_Comment [Aut omated message] The Basophils) system which ge nerated this result tra nsmitted reference range : <=1.0. The reference r christiano was not used to int erpret this result as normal/abnormal . [place] 884133-02-21 12:50:00 Test Item Value Reference Range Interpretation Comments Neutrophils # (test code = Neutrophils 5.6 1.5-8.1 #) [place] 884133-02-21 12:50:00 Test Item Value Reference Range Interpretation Comments Lymphocytes # (test code = Lymphocytes 1.9 1.0-5.5 #) [place] 884133-02-21 12:50:00 Test Item Value Reference Range Interpretation Comments Monocytes # (test code 0.7 See_Comment [Aut omated message] The = Monocytes #) system which generated this result tra nsmitted reference range : <=0.8. The reference r chritsiano was not used to int erpret this result as normal/abnormal . [place] 884133-02-21 12:50:00 Test Item Value Reference Range Interpretation Comments Eosinophils # (test code 0.4 See_Comment [A utomated message] The = Eosinophils #) system whic h generated this result tra nsmitted reference range : <=0.5. The reference r christiano was not used to int erpret this result as normal/abnormal . [facility] UmuqiaqYSBSZZEJJF0987-98-39 12:50:00 Test Item Value Reference Range Interpretation Comments Basophils # (test code 0.1 See_Comment [Aut omated message] The = Basophils #) system which generated this result tra nsmitted reference range : <=0.2. The reference r christiano was not used to int erpret this result as normal/abnormal . [facility] EftastyPUKGMGPPXL7203-89-54 12:50:00 Test Item Value Reference Range Interpretation Comments Stomatocyte (test code = Stomatocyte) slight [facility] GwtweqhARBXVCDWXI2022-01-59 12:50:00 Test Item Value Reference Range Interpretation Comments Ethanol Lvl (test code = Ethanol Lvl) no gt [facility] LjgikcgJIMGLZNVQQ1968-98-89 12:50:00 Test Item Value Reference Range Interpretation Comments Etoh (%) (test code = Etoh (%)) no gt [facility] Rebls PPNZJGT5607-43-73 12:50:00 Test Item Value Reference Range Interpretation Comments ABO/Rh (test code = ABO/Rh) O POS [employer] UGUAVRZ6866-19-96 12:50:00 Test Item Value Reference Range Interpretation Comments Antibody Scrn (test Negative (11/21/22 6:50 code = Antibody Scrn) AM) [facility] Rebls CJDCWYU4601-90-60 12:50:00 Test Item Value Reference Range Interpretation Comments ABO/Rh (test code = ABO/Rh) O POS [facility] Rebls YFJUZNA0335-34-03 12:50:00 Test Item Value Reference Range Interpretation Comments Antibody Scrn (test Negative (11/21/22 6:50 code = Antibody Scrn) AM) [facility] [place]ARD[place]AC OOTQKHC7877-29-65 12:50:00 Test Item Value Reference Range Interpretation Comments HS Troponin I (test code = HS Troponin 15 I) [facility] [employer] [id number] 12:50:00 Test Item Value Reference Range Interpretation Comments Glucose Lvl (test code = Glucose Lvl) 99 70-99 [facility] [employer] [id number] 12:50:00 Test Item Value Reference Range Interpretation Comments BUN (test code = BUN) 38 7-22 [facility]2023-02-21 12:50:00 Test Item Value Reference Range Interpretation Comments Creatinine Lvl (test code = Creatinine 2.38 0.50-1.40 Lvl) [facility]2023-02-21 12:50:00 Test Item Value Reference Range Interpretation Comments Sodium Lvl (test code = Sodium Lvl) 140 135-145 [place] 608593-02-21 12:50:00 Test Item Value Reference Range Interpretation Comments Potassium Lvl (test code = Potassium 3.9 3.5-5.1 Lvl) [facility]2023-02-21 12:50:00 Test Item Value Reference Range Interpretation Comments Chloride Lvl (test code = Chloride Lvl) 107 95-109 [facility]2023-02-21 12:50:00 Test Item Value Reference Range Interpretation Comments CO2 (test code = CO2) 27 24-32 [place] 608593-02-21 12:50:00 Test Item Value Reference Range Interpretation Comments Calcium Lvl (test code = Calcium Lvl) 8.1 8.5-10.5 [facility]2023-02-21 12:50:00 Test Item Value Reference Range Interpretation Comments AGAP (test code = AGAP) 9.9 10.0-20.0 [facility]2023-02-21 12:50:00 Test Item Value Reference Range Interpretation Comments eGFR (test code = eGFR) 20 [facility]2023-02-21 12:50:00 Test Item Value Reference Range Interpretation Comments Lactic Acid Lvl (test code = Lactic 0.7 0.5-2.2 Acid Lvl) [facility]2023-02-21 12:50:00 Test Item Value Reference Range Interpretation Comments Total Protein (test code = Total 6.1 6.4-8.4 Protein) [place] 608593-02-21 12:50:00 Test Item Value Reference Range Interpretation Comments Albumin Lvl (test code = Albumin Lvl) 2.9 3.5-5.0 [facility]2023-02-21 12:50:00 Test Item Value Reference Range Interpretation Comments Globulin (test code = Globulin) 3.2 2.7-4.2 [place] [address]-02-21 12:50:00 Test Item Value Reference Range Interpretation Comments A/G Ratio (test code = A/G Ratio) 0.9 1 0.7-1.6 [place] [address]-02-21 12:50:00 Test Item Value Reference Range Interpretation Comments ALT (test code = ALT) 16 See_Comment [Auto mated message] The system which ge nerated this result transmit sheba reference range : <=65. The reference range was not used to interpr et this result as edy l/abnormal. [place] [address]-02-21 12:50:00 Test Item Value Reference Range Interpretation Comments AST (test code = AST) 15 See_Comment [Auto mated message] The system which ge nerated this result transmit sheba reference range : <=37. The reference range was not used to interpr et this result as edy l/abnormal. [address]02-21 12:50:00 Test Item Value Reference Range Interpretation Comments Alk Phos (test code = Alk Phos) 96 39-136 [place] [address]-02-21 12:50:00 Test Item Value Reference Range Interpretation Comments Bili Total (test code = Bili Total) 0.2 0.2-1.3 [place] [address]-02-21 12:50:00 Test Item Value Reference Range Interpretation Comments Bili Direct (test code no gt See_Comment [Aut omated message] The = Bili Direct) system which generated this result tra nsmitted reference range : <=0.3. The reference r christiano was not used to int erpret this result as edy l/abnormal. [place] [address]-02-21 12:50:00 Test Item Value Reference Range Interpretation Comments Bili Indirect Unable to See_Comment [Automated (test code = Bili Calculate message] T he system Indirect) which generated this result transmitted reference range : <=1.0. The reference range was not used to interpret this result as normal/abnormal . [place] [address]-02-21 12:50:00 Test Item Value Reference Range Interpretation Comments Ethanol Lvl (test code = Ethanol Lvl) no gt [place] [address]-02-21 12:50:00 Test Item Value Reference Range Interpretation Comments Etoh (%) (test code = Etoh (%)) no gt [facility]PnvcwxxZIANHZWJP8851-39-13 12:50:00 Test Item Value Reference Range Interpretation Comments Lactic Acid Lvl (test code = Lactic 0.7 0.5-2.2 Acid Lvl) [facility] CenterEgkkhmsHLSYHNMUI9840-90-30 12:50:00 Test Item Value Reference Range Interpretation Comments Total Protein (test code = Total 6.1 6.4-8.4 Protein) [place] 809593-02-21 12:50:00 Test Item Value Reference Range Interpretation Comments Albumin Lvl (test code = Albumin Lvl) 2.9 3.5-5.0 [place] [address]-02-21 12:50:00 Test Item Value Reference Range Interpretation Comments Globulin (test code = Globulin) 3.2 2.7-4.2 [place] 809593-02-21 12:50:00 Test Item Value Reference Range Interpretation Comments A/G Ratio (test code = A/G Ratio) 0.9 1 0.7-1.6 [place] [address]-02-21 12:50:00 Test Item Value Reference Range Interpretation Comments ALT (test code = ALT) 16 See_Comment [Auto mated message] The system which ge nerated this result transmit sheba reference range : <=65. The reference range was not used to interpr et this result as edy l/abnormal. [place] 809593-02-21 12:50:00 Test Item Value Reference Range Interpretation Comments AST (test code = AST) 15 See_Comment [Auto mated message] The system which ge nerated this result transmit sheba reference range : <=37. The reference range was not used to interpr et this result as edy l/abnormal. [facility] CenterNigmzpkVQBHEAHRF8368-65-49 12:50:00 Test Item Value Reference Range Interpretation Comments Alk Phos (test code = Alk Phos) 96 39-136 [place] 809593-02-21 12:50:00 Test Item Value Reference Range Interpretation Comments Bili Total (test code = Bili Total) 0.2 0.2-1.3 [place] 809593-02-21 12:50:00 Test Item Value Reference Range Interpretation Comments Bili Direct (test code no gt See_Comment [Aut omated message] The = Bili Direct) system which generated this result tra nsmitted reference range : <=0.3. The reference r christiano was not used to int erpret this result as edy l/abnormal. [facility] CenterFyjaaxdGXORSHAPA2461-51-35 12:50:00 Test Item Value Reference Range Interpretation Comments Bili Indirect Unable to See_Comment [Automated (test code = Bili Calculate message] T he system Indirect) which generated this result transmitted reference range : <=1.0. The reference range was not used to interpret this result as normal/abnormal . [facility] CenterNixuoohYQDGBAUOM3397-82-50 12:50:00 Test Item Value Reference Range Interpretation Comments HS Troponin I (test code = HS Troponin 15 I) [facility] CenterWeyvjczUXSPGDQSU7106-65-20 12:50:00 Test Item Value Reference Range Interpretation Comments pH Justin (test code = pH Justin) 7.35 1 7.28-7.42 [facility] CenterVendqewHQAOEAESS7125-30-46 12:50:00 Test Item Value Reference Range Interpretation Comments pCO2 Justin (test code = pCO2 Justin) 55 38-52 [facility] CenterIwxpacwZTDDAXVPT8567-08-96 12:50:00 Test Item Value Reference Range Interpretation Comments pO2 Justin (test code = pO2 Justin) 43 20-49 [facility] CenterFashxaeZPREVWCHH5022-61-87 12:50:00 Test Item Value Reference Range Interpretation Comments HCO3 Justin (test code = HCO3 Justin) 30 22-26 [place] 809593-02-21 12:50:00 Test Item Value Reference Range Interpretation Comments BE Justin (test code = BE Justin) 3 -2-2 [facility] CenterNlhmfpdUYUJORBGA2349-67-43 12:50:00 Test Item Value Reference Range Interpretation Comments O2 Sat Justin (calc) (test code = O2 Sat 75.9 40.0-70.0 Justin (calc)) [facility] CenterAtqsqzwNZXKAPLLV1696-72-29 12:50:00 Test Item Value Reference Range Interpretation Comments Temp Justin (test code = Temp Justin) 37.0 [facility] CenterWfpanrmPZEAWFDLPU4428-91-41 12:50:00 Test Item Value Reference Range Interpretation Comments ACT (TEG) Rapid (test code = ACT (TEG) 113 s 86-118 Rapid) [facility] CenterAvjxucdNUQRMFUALK6939-07-88 12:50:00 Test Item Value Reference Range Interpretation Comments Split Point Rapid (test code = Split 0.6 min Point Rapid) [place] [address]-02-21 12:50:00 Test Item Value Reference Range Interpretation Comments R-time Rapid (test code = R-time 0.7 min 0.4-0.7 Rapid) [place] [address]-02-21 12:50:00 Test Item Value Reference Range Interpretation Comments K-time Rapid (test code = K-time 1.1 min 0.6-2.3 Rapid) [place] [address]-02-21 12:50:00 Test Item Value Reference Range Interpretation Comments Angle Rapid (test code = Angle 78 degrees 64-80 Rapid) [place] [address]-02-21 12:50:00 Test Item Value Reference Range Interpretation Comments Max Amplitude Rapid (test code = Max 65 mm 52-71 Amplitude Rapid) [place] [address]-02-21 12:50:00 Test Item Value Reference Range Interpretation Comments G-value Rapid (test code = G-value 9.2 5.0-11.6 Rapid) [place] [address]-02-21 12:50:00 Test Item Value Reference Range Interpretation Comments Estimated % Lysis Rapid 0.0 See_Comment [Au tomated message] The (test code = Estimated syste m which generated % Lysis Rapid) this result t ransmitted reference range : <=7.5. The reference r christiano was not used to int erpret this result as normal/abnormal . [place] 884133-02-21 12:50:00 Test Item Value Reference Range Interpretation Comments Plt Morph (test code = See Note 1(11/21/22 Plt Morph) 6:50 AM) [place] 884133-02-21 12:50:00 Test Item Value Reference Range Interpretation Comments Stomatocyte (test code = Stomatocyte) slight [place] [address]-02-21 12:50:00 Test Item Value Reference Range Interpretation Comments WBC X 10x3 (test code = WBC X 10x3) 8.7 3.7-10.4 [place] [address]-02-21 12:50:00 Test Item Value Reference Range Interpretation Comments RBC X 10x6 (test code = RBC X 10x6) 3.56 4.20-5.40 [place] 884133-02-21 12:50:00 Test Item Value Reference Range Interpretation Comments Hgb (test code = Hgb) 10.4 12.0-16.0 [place] 884133-02-21 12:50:00 Test Item Value Reference Range Interpretation Comments Hct (test code = Hct) 32.3 36.0-48.0 [place] [address]-02-21 12:50:00 Test Item Value Reference Range Interpretation Comments MCV (test code = MCV) 90.8 80.0-98.0 [place] [address]-02-21 12:50:00 Test Item Value Reference Range Interpretation Comments MCH (test code = MCH) 29.3 pg 27.0-31.0 [place] 884133-02-21 12:50:00 Test Item Value Reference Range Interpretation Comments MCHC (test code = MCHC) 32.2 32.0-36.0 [facility] CenterFupbjbvZQSTCTNVRN8033-55-53 12:50:00 Test Item Value Reference Range Interpretation Comments RDW (test code = RDW) 13.7 11.5-14.5 [place] [address]-02-21 12:50:00 Test Item Value Reference Range Interpretation Comments Platelet (test code = Platelet) 137 133-450 [facility] CenterVxtokwfADUPJWGCJX0128-79-91 12:50:00 Test Item Value Reference Range Interpretation Comments MPV (test code = MPV) 7.9 7.4-10.4 [place] [address]-02-21 12:50:00 Test Item Value Reference Range Interpretation Comments ACT (TEG) Rapid (test code = ACT (TEG) 113 s 86-118 Rapid) [place] 884133-02-21 12:50:00 Test Item Value Reference Range Interpretation Comments Split Point Rapid (test code = Split 0.6 min Point Rapid) [place] [address]-02-21 12:50:00 Test Item Value Reference Range Interpretation Comments R-time Rapid (test code = R-time 0.7 min 0.4-0.7 Rapid) [place] [address]-02-21 12:50:00 Test Item Value Reference Range Interpretation Comments K-time Rapid (test code = K-time 1.1 min 0.6-2.3 Rapid) [place] [address]-02-21 12:50:00 Test Item Value Reference Range Interpretation Comments Angle Rapid (test code = Angle 78 degrees 64-80 Rapid) [place] [address]-02-21 12:50:00 Test Item Value Reference Range Interpretation Comments Max Amplitude Rapid (test code = Max 65 mm 52-71 Amplitude Rapid) [place] [address]-02-21 12:50:00 Test Item Value Reference Range Interpretation Comments G-value Rapid (test code = G-value 9.2 5.0-11.6 Rapid) [place] [address]-02-21 12:50:00 Test Item Value Reference Range Interpretation Comments Estimated % Lysis Rapid 0.0 See_Comment [Au tomated message] The (test code = Estimated syste m which generated % Lysis Rapid) this result t ransmitted reference range : <=7.5. The reference r christiano was not used to int erpret this result as normal/abnormal . [place] [address]-02-21 12:50:00 Test Item Value Reference Range Interpretation Comments Plt Morph (test code = See Note 1(11/21/22 Plt Morph) 6:50 AM) [place] [address]-02-21 12:50:00 Test Item Value Reference Range Interpretation Comments Segs (test code = Segs) 64.1 45.0-75.0 [place] [address]-02-21 12:50:00 Test Item Value Reference Range Interpretation Comments Lymphocytes (test code = Lymphocytes) 22.0 20.0-40.0 [place] [address]-02-21 12:50:00 Test Item Value Reference Range Interpretation Comments Monocytes (test code = Monocytes) 8.3 2.0-12.0 [place] [address]-02-21 12:50:00 Test Item Value Reference Range Interpretation Comments Eosinophils (test code = 4.7 See_Comment [A utomated message] The Eosinophils) system which ge nerated this result tra nsmitted reference range : <=4.0. The reference r christiano was not used to int erpret this result as normal/abnormal . [place] [address]-02-21 12:50:00 Test Item Value Reference Range Interpretation Comments Basophils (test code = 0.9 See_Comment [Aut omated message] The Basophils) system which ge nerated this result tra nsmitted reference range : <=1.0. The reference r christiano was not used to int erpret this result as normal/abnormal . [facility] CenterNjsbszoXZPSNMOZYI7817-83-52 12:50:00 Test Item Value Reference Range Interpretation Comments Neutrophils # (test code = Neutrophils 5.6 1.5-8.1 #) [facility] CenterLsomtifLCKQHLPKPF4876-70-13 12:50:00 Test Item Value Reference Range Interpretation Comments Lymphocytes # (test code = Lymphocytes 1.9 1.0-5.5 #) [facility] CenterSbdfuboVXWPXHQNWQ5904-04-33 12:50:00 Test Item Value Reference Range Interpretation Comments Monocytes # (test code 0.7 See_Comment [Aut omated message] The = Monocytes #) system which generated this result tra nsmitted reference range : <=0.8. The reference r christiano was not used to int erpret this result as normal/abnormal . [facility] CenterCubfnxoCAKMLTMZYC1010-03-91 12:50:00 Test Item Value Reference Range Interpretation Comments Eosinophils # (test code 0.4 See_Comment [A utomated message] The = Eosinophils #) system whic h generated this result tra nsmitted reference range : <=0.5. The reference r christiano was not used to int erpret this result as normal/abnormal . [facility] CenterDyhbhbvOQYRDWLGMG0867-07-64 12:50:00 Test Item Value Reference Range Interpretation Comments Basophils # (test code 0.1 See_Comment [Aut omated message] The = Basophils #) system which generated this result tra nsmitted reference range : <=0.2. The reference r christiano was not used to int erpret this result as normal/abnormal . [facility] CenterGgvkbegOBGECDXCEA5575-30-56 12:50:00 Test Item Value Reference Range Interpretation Comments Stomatocyte (test code = Stomatocyte) slight [facility] HospitalAagsxmoONQQDEAIBO4644-13-73 12:50:00 Test Item Value Reference Range Interpretation Comments Ethanol Lvl (test code = Ethanol Lvl) no gt [facility] HospitalNxzbscaBBZBCZZQKT7166-71-33 12:50:00 Test Item Value Reference Range Interpretation Comments Etoh (%) (test code = Etoh (%)) no gt [facility] HospitalQcgaosoHSKFTT3059-81-25 12:25:01 Test Item Value Reference Range Interpretation [...] arthro[facility] 12:[facility]:01 Test Item Value Reference Range [...] arthroplasty and resurfacing of the patella.[facility] 12:25:01 Test Item Value Reference Range [...] arthroplasty and resurfacing of the patella.[facility] 12:25:01 Test Item Value Reference Range [...] arthroplasty and resurfacing of the patella.[facility] 12:25:01 Test Item Value Reference Range [...] arthroplasty and resurfacing of the patella.[facility] 11:23:44 Test Item Value Reference Range Interpretation [...] along the tentorium. No significant midline shift. [place] 95283023-02-21 11:23:44 Test Item Value Reference Range Interpretation [...] along the tentorium. No significant midline shift. [place] 95283023-02-21 11:23:44 Test Item Value Reference Range Interpretation [...] along the tentorium. No significant midline shift. [place] 763083-02-21 11:23:44 Test Item Value Reference Range Interpretation [...] the tentorium. No significant midline shift. [facility]HqfxhuoYNDGLW2157-18-14 11:23:44 Test Item Value Reference Range Interpretation [...] along the tentorium. No significant midline shift. [facility] SYNYN4668-21-57 10:24:00 Test Item Value Reference Range Interpretation Comments Glucose Lvl (test code = Glucose Lvl) 66 70-99 [facility] MEAVB4634-60-27 10:24:00 Test Item Value Reference Range Interpretation Comments BUN (test code = BUN) 19 7-22 [facility] LIWZM8439-89-34 10:24:00 Test Item Value Reference Range Interpretation Comments Creatinine Lvl (test code = Creatinine 1.82 0.50-1.40 Lvl) [facility]2020-12-07 10:24:00 Test Item Value Reference Range Interpretation Comments Sodium Lvl (test code = Sodium Lvl) 139 135-145 [facility]2020-12-07 10:24:00 Test Item Value Reference Range Interpretation Comments Potassium Lvl (test code = Potassium 4.2 3.5-5.1 Lvl) [facility]2020-12-07 10:24:00 Test Item Value Reference Range Interpretation Comments Chloride Lvl (test code = Chloride Lvl) 105 95-109 [facility]2020-12-07 10:24:00 Test Item Value Reference Range Interpretation Comments CO2 (test code = CO2) 28 24-32 [facility]2020-12-07 10:24:00 Test Item Value Reference Range Interpretation Comments Calcium Lvl (test code = Calcium Lvl) 8.2 8.5-10.5 [facility]2020-12-07 10:24:00 Test Item Value Reference Range Interpretation Comments AGAP (test code = AGAP) 10.2 10.0-20.0 [facility]2020-12-07 10:24:00 Test Item Value Reference Range Interpretation Comments Glucose Lvl (test code = Glucose Lvl) 66 70-99 [facility]2020-12-07 10:24:00 Test Item Value Reference Range Interpretation Comments BUN (test code = BUN) 19 7-22 [facility]2020-12-07 10:24:00 Test Item Value Reference Range Interpretation Comments Creatinine Lvl (test code = Creatinine 1.82 0.50-1.40 Lvl) [facility]2020-12-07 10:24:00 Test Item Value Reference Range Interpretation Comments Sodium Lvl (test code = Sodium Lvl) 139 135-145 [facility]2020-12-07 10:24:00 Test Item Value Reference Range Interpretation Comments Potassium Lvl (test code = Potassium 4.2 3.5-5.1 Lvl) [facility]2020-12-07 10:24:00 Test Item Value Reference Range Interpretation Comments eGFR (test code = eGFR) 26 [place] 608590-12-07 10:24:00 Test Item Value Reference Range Interpretation Comments Chloride Lvl (test code = Chloride Lvl) 105 95-109 [facility]2020-12-07 10:24:00 Test Item Value Reference Range Interpretation Comments CO2 (test code = CO2) 28 24-32 [facility]2020-12-07 10:24:00 Test Item Value Reference Range Interpretation Comments Calcium Lvl (test code = Calcium Lvl) 8.2 8.5-10.5 [facility]2020-12-07 10:24:00 Test Item Value Reference Range Interpretation Comments AGAP (test code = AGAP) 10.2 10.0-20.0 [facility]2020-12-07 10:24:00 Test Item Value Reference Range Interpretation Comments eGFR (test code = eGFR) 26 [facility] CenterCgrgtqgHXMWKKEUND6706-97-47 10:24:00 Test Item Value Reference Range Interpretation Comments Segs (test code = Segs) 70.6 45.0-75.0 [facility] CenterYegflisCZRKAZZGFF7073-83-83 10:24:00 Test Item Value Reference Range Interpretation Comments Lymphocytes (test code = Lymphocytes) 13.2 20.0-40.0 [facility] CenterKnrimcoHTJGBFWXVP8141-37-88 10:24:00 Test Item Value Reference Range Interpretation Comments Monocytes (test code = Monocytes) 10.9 2.0-12.0 [facility] CenterWcsccptJNHPIDGVSZ3319-92-14 10:24:00 Test Item Value Reference Range Interpretation Comments Eosinophils (test code = 4.6 See_Comment [A utomated message] The Eosinophils) system which ge nerated this result tra nsmitted reference range : <=4.0. The reference r christiano was not used to int erpret this result as normal/abnormal . [facility] CenterVxjanicMAISYDFMJU2717-16-49 10:24:00 Test Item Value Reference Range Interpretation Comments Basophils (test code = 0.7 See_Comment [Aut omated message] The Basophils) system which ge nerated this result tra nsmitted reference range : <=1.0. The reference r christiano was not used to int erpret this result as normal/abnormal . [facility] CenterHgqbkrnTBGUMQRNLO3539-44-60 10:24:00 Test Item Value Reference Range Interpretation Comments Segs (test code = Segs) 70.6 45.0-75.0 [place] [address]-12-07 10:24:00 Test Item Value Reference Range Interpretation Comments Neutrophils # (test code = Neutrophils 5.3 1.5-8.1 #) [facility] CenterKwlmchgWZIINLZRVP7094-20-03 10:24:00 Test Item Value Reference Range Interpretation Comments Lymphocytes # (test code = Lymphocytes 1.0 1.0-5.5 #) [facility] CenterErlsyeeAHEGCYOCVY5063-71-44 10:24:00 Test Item Value Reference Range Interpretation Comments Monocytes # (test code 0.8 See_Comment [Aut omated message] The = Monocytes #) system which generated this result tra nsmitted reference range : <=0.8. The reference r christiano was not used to int erpret this result as normal/abnormal . [facility] CenterEklnmuiARIRNRGFDS0633-45-83 10:24:00 Test Item Value Reference Range Interpretation Comments Eosinophils # (test code 0.3 See_Comment [A utomated message] The = Eosinophils #) system whic h generated this result tra nsmitted reference range : <=0.5. The reference r christiano was not used to int erpret this result as normal/abnormal . [facility] CenterUecbkwhZDWRIEQGSW6686-55-84 10:24:00 Test Item Value Reference Range Interpretation Comments Basophils # (test code 0.1 See_Comment [Aut omated message] The = Basophils #) system which generated this result tra nsmitted reference range : <=0.2. The reference r christiano was not used to int erpret this result as normal/abnormal . [facility] CenterOpxrbqgPIBVHAFTNU1364-85-46 10:24:00 Test Item Value Reference Range Interpretation Comments WBC (test code = WBC) 7.5 3.7-10.4 [facility] CenterQwhvogeMJZATHCDYJ6287-98-83 10:24:00 Test Item Value Reference Range Interpretation Comments RBC (test code = RBC) 3.85 4.20-5.40 [place] 884130-12-07 10:24:00 Test Item Value Reference Range Interpretation Comments Hgb (test code = Hgb) 10.6 12.0-16.0 [place] [address]-12-07 10:24:00 Test Item Value Reference Range Interpretation Comments Hct (test code = Hct) 32.1 36.0-48.0 [place] 884130-12-07 10:24:00 Test Item Value Reference Range Interpretation Comments MCV (test code = MCV) 83.5 80.0-98.0 [facility] CenterIomfdlwYFQBPQLPJK9872-44-85 10:24:00 Test Item Value Reference Range Interpretation Comments Lymphocytes (test code = Lymphocytes) 13.2 20.0-40.0 [facility] CenterYewhnrgRTWEZYFESX4027-75-02 10:24:00 Test Item Value Reference Range Interpretation Comments MCH (test code = MCH) 27.7 pg 27.0-31.0 [facility] CenterTtqworzJCVMBOXXEX1974-73-16 10:24:00 Test Item Value Reference Range Interpretation Comments MCHC (test code = MCHC) 33.1 32.0-36.0 [facility] CenterMjgczscQTUXRUTOQH8545-93-57 10:24:00 Test Item Value Reference Range Interpretation Comments RDW (test code = RDW) 16.8 11.5-14.5 [facility] CenterMdcdxulGEIICYZZRY4563-12-17 10:24:00 Test Item Value Reference Range Interpretation Comments Platelet (test code = Platelet) 185 133-450 [facility] CenterOptypbjTNYFHTMLWA7514-06-23 10:24:00 Test Item Value Reference Range Interpretation Comments MPV (test code = MPV) 8.4 7.4-10.4 [facility] CenterWnxjrwzEOPGBKNEIX1445-70-50 10:24:00 Test Item Value Reference Range Interpretation Comments Monocytes (test code = Monocytes) 10.9 2.0-12.0 [facility] CenterNhkejicIHXABELIKW3478-16-61 10:24:00 Test Item Value Reference Range Interpretation Comments Eosinophils (test code = 4.6 See_Comment [A utomated message] The Eosinophils) system which ge nerated this result tra nsmitted reference range : <=4.0. The reference r christiano was not used to int erpret this result as normal/abnormal . [facility] CenterZhmoecsGLBBBREDHU3445-37-29 10:24:00 Test Item Value Reference Range Interpretation Comments Basophils (test code = 0.7 See_Comment [Aut omated message] The Basophils) system which ge nerated this result tra nsmitted reference range : <=1.0. The reference r christiano was not used to int erpret this result as normal/abnormal . [facility] CenterKytuykzTBZKJFCKYD8014-50-36 10:24:00 Test Item Value Reference Range Interpretation Comments Neutrophils # (test code = Neutrophils 5.3 1.5-8.1 #) [facility] CenterYjszbygHHZQGVKPEV1264-10-85 10:24:00 Test Item Value Reference Range Interpretation Comments Lymphocytes # (test code = Lymphocytes 1.0 1.0-5.5 #) [facility] CenterZdgisjlXNMASBLPZL0075-27-03 10:24:00 Test Item Value Reference Range Interpretation Comments Monocytes # (test code 0.8 See_Comment [Aut omated message] The = Monocytes #) system which generated this result tra nsmitted reference range : <=0.8. The reference r christiano was not used to int erpret this result as normal/abnormal . [facility] CenterFjoqizdDEFXKNCESH7755-24-90 10:24:00 Test Item Value Reference Range Interpretation Comments Eosinophils # (test code 0.3 See_Comment [A utomated message] The = Eosinophils #) system whic h generated this result tra nsmitted reference range : <=0.5. The reference r christiano was not used to int erpret this result as normal/abnormal . [facility] CenterKroffuzKEUYRZGKES3255-06-95 10:24:00 Test Item Value Reference Range Interpretation Comments Basophils # (test code 0.1 See_Comment [Aut omated message] The = Basophils #) system which generated this result tra nsmitted reference range : <=0.2. The reference r christiano was not used to int erpret this result as normal/abnormal . [facility] CenterDlrgjtaWXVJXUGUPJ6133-96-05 10:24:00 Test Item Value Reference Range Interpretation Comments WBC (test code = WBC) 7.5 3.7-10.4 [facility] CenterKvgfpvpWVXEFFLXLW9141-70-35 10:24:00 Test Item Value Reference Range Interpretation Comments RBC (test code = RBC) 3.85 4.20-5.40 [place] 884130-12-07 10:24:00 Test Item Value Reference Range Interpretation Comments Hgb (test code = Hgb) 10.6 12.0-16.0 [place] [address]-12-07 10:24:00 Test Item Value Reference Range Interpretation Comments Hct (test code = Hct) 32.1 36.0-48.0 [place] [address]-12-07 10:24:00 Test Item Value Reference Range Interpretation Comments MCV (test code = MCV) 83.5 80.0-98.0 [place] 884130-12-07 10:24:00 Test Item Value Reference Range Interpretation Comments MCH (test code = MCH) 27.7 pg 27.0-31.0 [facility] CenterImeoueePNNBYYNWPY1664-54-22 10:24:00 Test Item Value Reference Range Interpretation Comments MCHC (test code = MCHC) 33.1 32.0-36.0 [facility] CenterHdtlwefRVSCBEWIVY3546-36-06 10:24:00 Test Item Value Reference Range Interpretation Comments RDW (test code = RDW) 16.8 11.5-14.5 [place] 884130-12-07 10:24:00 Test Item Value Reference Range Interpretation Comments Platelet (test code = Platelet) 185 133-450 [facility] CenterZrybuiwLSWRQXEIAL8744-45-25 10:24:00 Test Item Value Reference Range Interpretation Comments MPV (test code = MPV) 8.4 7.4-10.4 [facility]2020-12-07 10:24:00 Test Item Value Reference Range Interpretation Comments Glucose Lvl (test code = Glucose Lvl) 66 70-99 [facility]2020-12-07 10:24:00 Test Item Value Reference Range Interpretation Comments BUN (test code = BUN) 19 7-22 [facility]2020-12-07 10:24:00 Test Item Value Reference Range Interpretation Comments Creatinine Lvl (test code = Creatinine 1.82 0.50-1.40 Lvl) [facility]2020-12-07 10:24:00 Test Item Value Reference Range Interpretation Comments Sodium Lvl (test code = Sodium Lvl) 139 135-145 [facility]2020-12-07 10:24:00 Test Item Value Reference Range Interpretation Comments Potassium Lvl (test code = Potassium 4.2 3.5-5.1 Lvl) [facility]2020-12-07 10:24:00 Test Item Value Reference Range Interpretation Comments Chloride Lvl (test code = Chloride Lvl) 105 95-109 [place] 608590-12-07 10:24:00 Test Item Value Reference Range Interpretation Comments CO2 (test code = CO2) 28 24-32 [facility]2020-12-07 10:24:00 Test Item Value Reference Range Interpretation Comments Calcium Lvl (test code = Calcium Lvl) 8.2 8.5-10.5 [facility]2020-12-07 10:24:00 Test Item Value Reference Range Interpretation Comments AGAP (test code = AGAP) 10.2 10.0-20.0 [facility]2020-12-07 10:24:00 Test Item Value Reference Range Interpretation Comments eGFR (test code = eGFR) 26 [facility] CenterHtgvyjdAAXNDDDERM7673-17-94 10:24:00 Test Item Value Reference Range Interpretation Comments Segs (test code = Segs) 70.6 45.0-75.0 [facility] CenterZbrvsgzUVNBUHKFHY5471-27-78 10:24:00 Test Item Value Reference Range Interpretation Comments Lymphocytes (test code = Lymphocytes) 13.2 20.0-40.0 [facility] CenterUakaqavSVVKYVHKUK4130-35-92 10:24:00 Test Item Value Reference Range Interpretation Comments Monocytes (test code = Monocytes) 10.9 2.0-12.0 [facility] CenterGcebdbiMYQWBBICCM3234-56-19 10:24:00 Test Item Value Reference Range Interpretation Comments Eosinophils (test code = 4.6 See_Comment [A utomated message] The Eosinophils) system which ge nerated this result tra nsmitted reference range : <=4.0. The reference r christiano was not used to int erpret this result as normal/abnormal . [facility] CenterQvmozgsHZIIPJATOS0546-88-15 10:24:00 Test Item Value Reference Range Interpretation Comments Basophils (test code = 0.7 See_Comment [Aut omated message] The Basophils) system which ge nerated this result tra nsmitted reference range : <=1.0. The reference r christiano was not used to int erpret this result as normal/abnormal . [facility] CenterWmahiynPEFEFTWZAB1850-18-13 10:24:00 Test Item Value Reference Range Interpretation Comments Neutrophils # (test code = Neutrophils 5.3 1.5-8.1 #) [facility] CenterZmidytzYJDXNLIQRH9447-10-68 10:24:00 Test Item Value Reference Range Interpretation Comments Lymphocytes # (test code = Lymphocytes 1.0 1.0-5.5 #) [facility] CenterRonpidaYFVGTQFHRP2075-08-24 10:24:00 Test Item Value Reference Range Interpretation Comments Monocytes # (test code 0.8 See_Comment [Aut omated message] The = Monocytes #) system which generated this result tra nsmitted reference range : <=0.8. The reference r christiano was not used to int erpret this result as normal/abnormal . [facility] HospitalBatulocCACLVVWUWC0124-45-73 10:24:00 Test Item Value Reference Range Interpretation Comments Eosinophils # (test code 0.3 See_Comment [A utomated message] The = Eosinophils #) system whic h generated this result tra nsmitted reference range : <=0.5. The reference r christiano was not used to int erpret this result as normal/abnormal . [facility] HospitalPcxujbqMJPYJSUCUV3837-63-28 10:24:00 Test Item Value Reference Range Interpretation Comments Basophils # (test code 0.1 See_Comment [Aut omated message] The = Basophils #) system which generated this result tra nsmitted reference range : <=0.2. The reference r christiano was not used to int erpret this result as normal/abnormal . [facility] CenterOcyqqwcPCVUQWQIQW9675-06-34 10:24:00 Test Item Value Reference Range Interpretation Comments WBC (test code = WBC) 7.5 3.7-10.4 [facility] CenterXddmttcZDKJYKYPDT8872-37-73 10:24:00 Test Item Value Reference Range Interpretation Comments RBC (test code = RBC) 3.85 4.20-5.40 [facility] CenterQavlsmmTXXPYLMJAM3010-01-15 10:24:00 Test Item Value Reference Range Interpretation Comments Hgb (test code = Hgb) 10.6 12.0-16.0 [facility] CenterBxdksznAUCTBMAXFW4573-84-80 10:24:00 Test Item Value Reference Range Interpretation Comments Hct (test code = Hct) 32.1 36.0-48.0 [facility] CenterDwnqftkJHXTWGNRZW0022-18-02 10:24:00 Test Item Value Reference Range Interpretation Comments MCV (test code = MCV) 83.5 80.0-98.0 [facility] CenterTjgllmiOGLLVUKEJI7314-00-91 10:24:00 Test Item Value Reference Range Interpretation Comments MCH (test code = MCH) 27.7 pg 27.0-31.0 [facility] CenterOffumtoGTHJATOOAZ7258-03-64 10:24:00 Test Item Value Reference Range Interpretation Comments MCHC (test code = MCHC) 33.1 32.0-36.0 [facility] CenterHuiwksvXTJHPGILKP8992-55-43 10:24:00 Test Item Value Reference Range Interpretation Comments RDW (test code = RDW) 16.8 11.5-14.5 [facility] CenterHoavmhfOAFGGVUGXI6841-40-01 10:24:00 Test Item Value Reference Range Interpretation Comments Platelet (test code = Platelet) 185 133-450 [facility] CenterWjrrtljHNBSEGJFZO1706-14-66 10:24:00 Test Item Value Reference Range Interpretation Comments MPV (test code = MPV) 8.4 7.4-10.4 [facility]2020-12-07 10:24:00 Test Item Value Reference Range Interpretation Comments Glucose Lvl (test code = Glucose Lvl) 66 70-99 [facility]2020-12-07 10:24:00 Test Item Value Reference Range Interpretation Comments BUN (test code = BUN) 19 7-22 [facility]2020-12-07 10:24:00 Test Item Value Reference Range Interpretation Comments Creatinine Lvl (test code = Creatinine 1.82 0.50-1.40 Lvl) [facility]2020-12-07 10:24:00 Test Item Value Reference Range Interpretation Comments Sodium Lvl (test code = Sodium Lvl) 139 135-145 [facility]2020-12-07 10:24:00 Test Item Value Reference Range Interpretation Comments Potassium Lvl (test code = Potassium 4.2 3.5-5.1 Lvl) [facility]2020-12-07 10:24:00 Test Item Value Reference Range Interpretation Comments Chloride Lvl (test code = Chloride Lvl) 105 95-109 [facility]2020-12-07 10:24:00 Test Item Value Reference Range Interpretation Comments CO2 (test code = CO2) 28 24-32 [facility]2020-12-07 10:24:00 Test Item Value Reference Range Interpretation Comments Calcium Lvl (test code = Calcium Lvl) 8.2 8.5-10.5 [facility]2020-12-07 10:24:00 Test Item Value Reference Range Interpretation Comments AGAP (test code = AGAP) 10.2 10.0-20.0 [facility]2020-12-07 10:24:00 Test Item Value Reference Range Interpretation Comments eGFR (test code = eGFR) 26 [place] 884130-12-07 10:24:00 Test Item Value Reference Range Interpretation Comments Segs (test code = Segs) 70.6 45.0-75.0 [facility] CenterEykfmxoAQWQKBSSMF4993-18-13 10:24:00 Test Item Value Reference Range Interpretation Comments Lymphocytes (test code = Lymphocytes) 13.2 20.0-40.0 [place] 884130-12-07 10:24:00 Test Item Value Reference Range Interpretation Comments Monocytes (test code = Monocytes) 10.9 2.0-12.0 [place] 884130-12-07 10:24:00 Test Item Value Reference Range Interpretation Comments Eosinophils (test code = 4.6 See_Comment [A utomated message] The Eosinophils) system which ge nerated this result tra nsmitted reference range : <=4.0. The reference r christiano was not used to int erpret this result as normal/abnormal . [facility] CenterZfkzmzwBDIWEZJBGA6253-81-92 10:24:00 Test Item Value Reference Range Interpretation Comments Basophils (test code = 0.7 See_Comment [Aut omated message] The Basophils) system which ge nerated this result tra nsmitted reference range : <=1.0. The reference r christiano was not used to int erpret this result as normal/abnormal . [facility] CenterQvhokxpEGCRJUOFDN0219-94-23 10:24:00 Test Item Value Reference Range Interpretation Comments Neutrophils # (test code = Neutrophils 5.3 1.5-8.1 #) [facility] CenterRflzlbcQQZYIWMCEE8818-88-28 10:24:00 Test Item Value Reference Range Interpretation Comments Lymphocytes # (test code = Lymphocytes 1.0 1.0-5.5 #) [facility] CenterIeuyfciLRBJIJSDVL4094-05-96 10:24:00 Test Item Value Reference Range Interpretation Comments Monocytes # (test code 0.8 See_Comment [Aut omated message] The = Monocytes #) system which generated this result tra nsmitted reference range : <=0.8. The reference r christiano was not used to int erpret this result as normal/abnormal . [facility] CenterOrdohnbIAHTVENTIM8235-01-26 10:24:00 Test Item Value Reference Range Interpretation Comments Eosinophils # (test code 0.3 See_Comment [A utomated message] The = Eosinophils #) system whic h generated this result tra nsmitted reference range : <=0.5. The reference r christiano was not used to int erpret this result as normal/abnormal . [facility] CenterBztajjdKGPTHBZIRN9060-84-79 10:24:00 Test Item Value Reference Range Interpretation Comments Basophils # (test code 0.1 See_Comment [Aut omated message] The = Basophils #) system which generated this result tra nsmitted reference range : <=0.2. The reference r christiano was not used to int erpret this result as normal/abnormal . [facility] CenterEvowfzbPPHTKCUYOQ3256-70-22 10:24:00 Test Item Value Reference Range Interpretation Comments WBC (test code = WBC) 7.5 3.7-10.4 [facility] CenterPqymmdqIXFVMQQBUF4621-74-90 10:24:00 Test Item Value Reference Range Interpretation Comments RBC (test code = RBC) 3.85 4.20-5.40 [facility] CenterZwqnnhpTSBDQTXKQE3970-97-98 10:24:00 Test Item Value Reference Range Interpretation Comments Hgb (test code = Hgb) 10.6 12.0-16.0 [facility] CenterXwaikxdUDKFMQFBOI9532-09-34 10:24:00 Test Item Value Reference Range Interpretation Comments Hct (test code = Hct) 32.1 36.0-48.0 [facility] CenterNxdprsoFJHZMLZOIH2387-68-34 10:24:00 Test Item Value Reference Range Interpretation Comments MCV (test code = MCV) 83.5 80.0-98.0 [facility] CenterPshabveZDVIIQWWEO1044-39-57 10:24:00 Test Item Value Reference Range Interpretation Comments MCH (test code = MCH) 27.7 pg 27.0-31.0 [facility] CenterGynffuqGTJVNMZLRX7136-96-63 10:24:00 Test Item Value Reference Range Interpretation Comments MCHC (test code = MCHC) 33.1 32.0-36.0 [facility] CenterIrewzutHEDZOCSQJW3565-99-07 10:24:00 Test Item Value Reference Range Interpretation Comments RDW (test code = RDW) 16.8 11.5-14.5 [facility] CenterQfaxeogEHZRPBEFXN3584-02-64 10:24:00 Test Item Value Reference Range Interpretation Comments Platelet (test code = Platelet) 185 133-450 [facility] CenterGxxmppbAYZVHKMJAO9685-12-39 10:24:00 Test Item Value Reference Range Interpretation Comments MPV (test code = MPV) 8.4 7.4-10.4 [facility]2020-12-07 10:24:00 Test Item Value Reference Range Interpretation Comments Glucose Lvl (test code = Glucose Lvl) 66 70-99 [facility]2020-12-07 10:24:00 Test Item Value Reference Range Interpretation Comments BUN (test code = BUN) 19 7-22 [place] 608590-12-07 10:24:00 Test Item Value Reference Range Interpretation Comments Creatinine Lvl (test code = Creatinine 1.82 0.50-1.40 Lvl) [facility]2020-12-07 10:24:00 Test Item Value Reference Range Interpretation Comments Sodium Lvl (test code = Sodium Lvl) 139 135-145 [place] 608590-12-07 10:24:00 Test Item Value Reference Range Interpretation Comments Potassium Lvl (test code = Potassium 4.2 3.5-5.1 Lvl) [facility]2020-12-07 10:24:00 Test Item Value Reference Range Interpretation Comments Chloride Lvl (test code = Chloride Lvl) 105 95-109 [facility]2020-12-07 10:24:00 Test Item Value Reference Range Interpretation Comments CO2 (test code = CO2) 28 24-32 [facility]2020-12-07 10:24:00 Test Item Value Reference Range Interpretation Comments Calcium Lvl (test code = Calcium Lvl) 8.2 8.5-10.5 [facility]2020-12-07 10:24:00 Test Item Value Reference Range Interpretation Comments AGAP (test code = AGAP) 10.2 10.0-20.0 [place] 608590-12-07 10:24:00 Test Item Value Reference Range Interpretation Comments eGFR (test code = eGFR) 26 [facility] CenterVlgryjvRZBWKNZQNB1316-28-93 10:24:00 Test Item Value Reference Range Interpretation Comments Segs (test code = Segs) 70.6 45.0-75.0 [place] 884130-12-07 10:24:00 Test Item Value Reference Range Interpretation Comments Lymphocytes (test code = Lymphocytes) 13.2 20.0-40.0 [place] 884130-12-07 10:24:00 Test Item Value Reference Range Interpretation Comments Monocytes (test code = Monocytes) 10.9 2.0-12.0 [facility] CenterToduibcGDSNPOUPKB9756-08-54 10:24:00 Test Item Value Reference Range Interpretation Comments Eosinophils (test code = 4.6 See_Comment [A utomated message] The Eosinophils) system which ge nerated this result tra nsmitted reference range : <=4.0. The reference r christiano was not used to int erpret this result as normal/abnormal . [facility] CenterRokbjudBOGUZBYPVZ4341-54-24 10:24:00 Test Item Value Reference Range Interpretation Comments Basophils (test code = 0.7 See_Comment [Aut omated message] The Basophils) system which ge nerated this result tra nsmitted reference range : <=1.0. The reference r christiano was not used to int erpret this result as normal/abnormal . [facility] CenterEwsebinDCFZURDLDM2570-90-40 10:24:00 Test Item Value Reference Range Interpretation Comments Neutrophils # (test code = Neutrophils 5.3 1.5-8.1 #) [facility] CenterJubrbpiENDCGAYRRJ9378-83-89 10:24:00 Test Item Value Reference Range Interpretation Comments Lymphocytes # (test code = Lymphocytes 1.0 1.0-5.5 #) [facility] CenterNejemulWDONLHAAPW2774-63-78 10:24:00 Test Item Value Reference Range Interpretation Comments Monocytes # (test code 0.8 See_Comment [Aut omated message] The = Monocytes #) system which generated this result tra nsmitted reference range : <=0.8. The reference r christiano was not used to int erpret this result as normal/abnormal . [facility] CenterPvqtzmyLIZFKZLPPF3834-22-78 10:24:00 Test Item Value Reference Range Interpretation Comments Eosinophils # (test code 0.3 See_Comment [A utomated message] The = Eosinophils #) system whic h generated this result tra nsmitted reference range : <=0.5. The reference r christiano was not used to int erpret this result as normal/abnormal . [facility] CenterCxuqbjtBCDKDBHVYO9207-35-76 10:24:00 Test Item Value Reference Range Interpretation Comments Basophils # (test code 0.1 See_Comment [Aut omated message] The = Basophils #) system which generated this result tra nsmitted reference range : <=0.2. The reference r christiano was not used to int erpret this result as normal/abnormal . [facility] CenterLmzyfanGMFVRIVIYL1205-43-44 10:24:00 Test Item Value Reference Range Interpretation Comments WBC (test code = WBC) 7.5 3.7-10.4 [place] 884130-12-07 10:24:00 Test Item Value Reference Range Interpretation Comments RBC (test code = RBC) 3.85 4.20-5.40 [place] 884130-12-07 10:24:00 Test Item Value Reference Range Interpretation Comments Hgb (test code = Hgb) 10.6 12.0-16.0 [place] [address]-12-07 10:24:00 Test Item Value Reference Range Interpretation Comments Hct (test code = Hct) 32.1 36.0-48.0 [place] [address]-12-07 10:24:00 Test Item Value Reference Range Interpretation Comments MCV (test code = MCV) 83.5 80.0-98.0 [place] [address]-12-07 10:24:00 Test Item Value Reference Range Interpretation Comments MCH (test code = MCH) 27.7 pg 27.0-31.0 [facility] CenterPcmyxtcYOBHPKPGMR6166-90-71 10:24:00 Test Item Value Reference Range Interpretation Comments MCHC (test code = MCHC) 33.1 32.0-36.0 [facility] CenterLuxbvjmJJQGDIGRRS6325-12-25 10:24:00 Test Item Value Reference Range Interpretation Comments RDW (test code = RDW) 16.8 11.5-14.5 [facility] CenterVayzopfSRIHBIWPTJ3213-14-65 10:24:00 Test Item Value Reference Range Interpretation Comments Platelet (test code = Platelet) 185 133-450 [facility] CenterEgkcwwqNPBFHQMOIO5462-84-85 10:24:00 Test Item Value Reference Range Interpretation Comments MPV (test code = MPV) 8.4 7.4-10.4 [facility]2020-12-07 10:24:00 Test Item Value Reference Range Interpretation Comments Glucose Lvl (test code = Glucose Lvl) 66 70-99 [facility]2020-12-07 10:24:00 Test Item Value Reference Range Interpretation Comments BUN (test code = BUN) 19 7-22 [place] 608590-12-07 10:24:00 Test Item Value Reference Range Interpretation Comments Creatinine Lvl (test code = Creatinine 1.82 0.50-1.40 Lvl) [place] 608590-12-07 10:24:00 Test Item Value Reference Range Interpretation Comments Sodium Lvl (test code = Sodium Lvl) 139 135-145 [place] 608590-12-07 10:24:00 Test Item Value Reference Range Interpretation Comments Potassium Lvl (test code = Potassium 4.2 3.5-5.1 Lvl) [facility]2020-12-07 10:24:00 Test Item Value Reference Range Interpretation Comments Chloride Lvl (test code = Chloride Lvl) 105 95-109 [place] 608590-12-07 10:24:00 Test Item Value Reference Range Interpretation Comments CO2 (test code = CO2) 28 24-32 [place] [address]-12-07 10:24:00 Test Item Value Reference Range Interpretation Comments Calcium Lvl (test code = Calcium Lvl) 8.2 8.5-10.5 [facility]2020-12-07 10:24:00 Test Item Value Reference Range Interpretation Comments AGAP (test code = AGAP) 10.2 10.0-20.0 [facility]2020-12-07 10:24:00 Test Item Value Reference Range Interpretation Comments eGFR (test code = eGFR) 26 [place] [address]-12-07 10:24:00 Test Item Value Reference Range Interpretation Comments Segs (test code = Segs) 70.6 45.0-75.0 [place] 884130-12-07 10:24:00 Test Item Value Reference Range Interpretation Comments Lymphocytes (test code = Lymphocytes) 13.2 20.0-40.0 [place] [address]-12-07 10:24:00 Test Item Value Reference Range Interpretation Comments Monocytes (test code = Monocytes) 10.9 2.0-12.0 [place] [address]-12-07 10:24:00 Test Item Value Reference Range Interpretation Comments Eosinophils (test code = 4.6 See_Comment [A utomated message] The Eosinophils) system which ge nerated this result tra nsmitted reference range : <=4.0. The reference r christiano was not used to int erpret this result as normal/abnormal . [facility] CenterAlbybdwGENFBBWLIZ8394-93-97 10:24:00 Test Item Value Reference Range Interpretation Comments Basophils (test code = 0.7 See_Comment [Aut omated message] The Basophils) system which ge nerated this result tra nsmitted reference range : <=1.0. The reference r christiano was not used to int erpret this result as normal/abnormal . [facility] CenterRkpmnkhORMOPWNNOX1264-93-28 10:24:00 Test Item Value Reference Range Interpretation Comments Neutrophils # (test code = Neutrophils 5.3 1.5-8.1 #) [facility] CenterMjzbhdpMTMQLBOTIH3728-57-81 10:24:00 Test Item Value Reference Range Interpretation Comments Lymphocytes # (test code = Lymphocytes 1.0 1.0-5.5 #) [facility] CenterLsfiedtFIBQXVCWEA5461-11-26 10:24:00 Test Item Value Reference Range Interpretation Comments Monocytes # (test code 0.8 See_Comment [Aut omated message] The = Monocytes #) system which generated this result tra nsmitted reference range : <=0.8. The reference r christiano was not used to int erpret this result as normal/abnormal . [facility] CenterOykoeaqDWIJQHXLYY7676-83-35 10:24:00 Test Item Value Reference Range Interpretation Comments Eosinophils # (test code 0.3 See_Comment [A utomated message] The = Eosinophils #) system whic h generated this result tra nsmitted reference range : <=0.5. The reference r christiano was not used to int erpret this result as normal/abnormal . [facility] CenterSmipzapBLSYSNOYCJ6766-94-44 10:24:00 Test Item Value Reference Range Interpretation Comments Basophils # (test code 0.1 See_Comment [Aut omated message] The = Basophils #) system which generated this result tra nsmitted reference range : <=0.2. The reference r christiano was not used to int erpret this result as normal/abnormal . [facility] CenterFzbgevgSTUAJLGJDX3157-23-96 10:24:00 Test Item Value Reference Range Interpretation Comments WBC (test code = WBC) 7.5 3.7-10.4 [facility] CenterRgvizlaMJDOUCWGVS1926-95-33 10:24:00 Test Item Value Reference Range Interpretation Comments RBC (test code = RBC) 3.85 4.20-5.40 [place] [address]-12-07 10:24:00 Test Item Value Reference Range Interpretation Comments Hgb (test code = Hgb) 10.6 12.0-16.0 [place] [address]-12-07 10:24:00 Test Item Value Reference Range Interpretation Comments Hct (test code = Hct) 32.1 36.0-48.0 [place] 884130-12-07 10:24:00 Test Item Value Reference Range Interpretation Comments MCV (test code = MCV) 83.5 80.0-98.0 [place] [address]-12-07 10:24:00 Test Item Value Reference Range Interpretation Comments MCH (test code = MCH) 27.7 pg 27.0-31.0 [place] [address]-12-07 10:24:00 Test Item Value Reference Range Interpretation Comments MCHC (test code = MCHC) 33.1 32.0-36.0 [place] 884130-12-07 10:24:00 Test Item Value Reference Range Interpretation Comments RDW (test code = RDW) 16.8 11.5-14.5 [facility] CenterLdhvcloQKSPWEDQUN2151-58-36 10:24:00 Test Item Value Reference Range Interpretation Comments Platelet (test code = Platelet) 185 133-450 [facility] CenterIbdrabtBNXATLVNFN2695-24-70 10:24:00 Test Item Value Reference Range Interpretation Comments MPV (test code = MPV) 8.4 7.4-10.4 [facility]2020-12-07 10:24:00 Test Item Value Reference Range Interpretation Comments Glucose Lvl (test code = Glucose Lvl) 66 70-99 [facility]2020-12-07 10:24:00 Test Item Value Reference Range Interpretation Comments BUN (test code = BUN) 19 7-22 [facility]2020-12-07 10:24:00 Test Item Value Reference Range Interpretation Comments Creatinine Lvl (test code = Creatinine 1.82 0.50-1.40 Lvl) [facility]2020-12-07 10:24:00 Test Item Value Reference Range Interpretation Comments Sodium Lvl (test code = Sodium Lvl) 139 135-145 [facility]2020-12-07 10:24:00 Test Item Value Reference Range Interpretation Comments Potassium Lvl (test code = Potassium 4.2 3.5-5.1 Lvl) [facility]2020-12-07 10:24:00 Test Item Value Reference Range Interpretation Comments Chloride Lvl (test code = Chloride Lvl) 105 95-109 [place] 608590-12-07 10:24:00 Test Item Value Reference Range Interpretation Comments CO2 (test code = CO2) 28 24-32 [place] 608590-12-07 10:24:00 Test Item Value Reference Range Interpretation Comments Calcium Lvl (test code = Calcium Lvl) 8.2 8.5-10.5 [facility]2020-12-07 10:24:00 Test Item Value Reference Range Interpretation Comments AGAP (test code = AGAP) 10.2 10.0-20.0 [facility]2020-12-07 10:24:00 Test Item Value Reference Range Interpretation Comments eGFR (test code = eGFR) 26 [facility] CenterKaknvcrAUWKJPELZI0462-41-03 10:24:00 Test Item Value Reference Range Interpretation Comments Segs (test code = Segs) 70.6 45.0-75.0 [place] 884130-12-07 10:24:00 Test Item Value Reference Range Interpretation Comments Lymphocytes (test code = Lymphocytes) 13.2 20.0-40.0 [facility] CenterTarelzmVIVXZMHCMD1213-38-60 10:24:00 Test Item Value Reference Range Interpretation Comments Monocytes (test code = Monocytes) 10.9 2.0-12.0 [facility] CenterMnchkdwEXFOHDATVV7903-41-28 10:24:00 Test Item Value Reference Range Interpretation Comments Eosinophils (test code = 4.6 See_Comment [A utomated message] The Eosinophils) system which ge nerated this result tra nsmitted reference range : <=4.0. The reference r christiano was not used to int erpret this result as normal/abnormal . [place] 884130-12-07 10:24:00 Test Item Value Reference Range Interpretation Comments Basophils (test code = 0.7 See_Comment [Aut omated message] The Basophils) system which ge nerated this result tra nsmitted reference range : <=1.0. The reference r christiano was not used to int erpret this result as normal/abnormal . [place] 884130-12-07 10:24:00 Test Item Value Reference Range Interpretation Comments Neutrophils # (test code = Neutrophils 5.3 1.5-8.1 #) [facility] CenterXpthbkqDRGYSHDBJL1287-60-33 10:24:00 Test Item Value Reference Range Interpretation Comments Lymphocytes # (test code = Lymphocytes 1.0 1.0-5.5 #) [facility] CenterOimhpybHDGDFWBZGQ5498-74-20 10:24:00 Test Item Value Reference Range Interpretation Comments Monocytes # (test code 0.8 See_Comment [Aut omated message] The = Monocytes #) system which generated this result tra nsmitted reference range : <=0.8. The reference r christiano was not used to int erpret this result as normal/abnormal . [facility] CenterWxmzntyPKIWMJTFJV3605-69-66 10:24:00 Test Item Value Reference Range Interpretation Comments Eosinophils # (test code 0.3 See_Comment [A utomated message] The = Eosinophils #) system whic h generated this result tra nsmitted reference range : <=0.5. The reference r christiano was not used to int erpret this result as normal/abnormal . [facility] CenterEzwhktaNRMGAQOUZT1689-11-34 10:24:00 Test Item Value Reference Range Interpretation Comments Basophils # (test code 0.1 See_Comment [Aut omated message] The = Basophils #) system which generated this result tra nsmitted reference range : <=0.2. The reference r christiano was not used to int erpret this result as normal/abnormal . [facility] CenterNgvchgpYVORYZUFPF5740-55-02 10:24:00 Test Item Value Reference Range Interpretation Comments WBC (test code = WBC) 7.5 3.7-10.4 [facility] CenterYqferjrJESIOVVUTA6756-31-32 10:24:00 Test Item Value Reference Range Interpretation Comments RBC (test code = RBC) 3.85 4.20-5.40 [place] 884130-12-07 10:24:00 Test Item Value Reference Range Interpretation Comments Hgb (test code = Hgb) 10.6 12.0-16.0 [place] 884130-12-07 10:24:00 Test Item Value Reference Range Interpretation Comments Hct (test code = Hct) 32.1 36.0-48.0 [place] 884130-12-07 10:24:00 Test Item Value Reference Range Interpretation Comments MCV (test code = MCV) 83.5 80.0-98.0 [facility] CenterIswycipCTFBUBBVTI3165-80-15 10:24:00 Test Item Value Reference Range Interpretation Comments MCH (test code = MCH) 27.7 pg 27.0-31.0 [facility] CenterRjezeieYUMMTABXJY3328-04-92 10:24:00 Test Item Value Reference Range Interpretation Comments MCHC (test code = MCHC) 33.1 32.0-36.0 [facility] CenterFkvrlroFACYGXJDZA7004-42-98 10:24:00 Test Item Value Reference Range Interpretation Comments RDW (test code = RDW) 16.8 11.5-14.5 [facility] CenterPbgrfdaPSYCTREADO6883-56-36 10:24:00 Test Item Value Reference Range Interpretation Comments Platelet (test code = Platelet) 185 133-450 [facility] CenterPbfezkmFDQGGQBKHG6329-88-60 10:24:00 Test Item Value Reference Range Interpretation Comments MPV (test code = MPV) 8.4 7.4-10.4 [facility]2020-12-07 10:24:00 Test Item Value Reference Range Interpretation Comments Glucose Lvl (test code = Glucose Lvl) 66 70-99 [facility]2020-12-07 10:24:00 Test Item Value Reference Range Interpretation Comments BUN (test code = BUN) 19 7-22 [facility]2020-12-07 10:24:00 Test Item Value Reference Range Interpretation Comments Creatinine Lvl (test code = Creatinine 1.82 0.50-1.40 Lvl) [facility]2020-12-07 10:24:00 Test Item Value Reference Range Interpretation Comments Sodium Lvl (test code = Sodium Lvl) 139 135-145 [facility]2020-12-07 10:24:00 Test Item Value Reference Range Interpretation Comments Potassium Lvl (test code = Potassium 4.2 3.5-5.1 Lvl) [facility]2020-12-07 10:24:00 Test Item Value Reference Range Interpretation Comments Chloride Lvl (test code = Chloride Lvl) 105 95-109 [facility]2020-12-07 10:24:00 Test Item Value Reference Range Interpretation Comments CO2 (test code = CO2) 24-32 [facility]2020-12-07 10:24:00 Test Item Value Reference Range Interpretation Comments Calcium Lvl (test code = Calcium Lvl) 8.2 8.5-10.5 [place] 608590-12-07 10:24:00 Test Item Value Reference Range Interpretation Comments AGAP (test code = AGAP) 10.2 10.0-20.0 [facility]2020-12-07 10:24:00 Test Item Value Reference Range Interpretation Comments eGFR (test code = eGFR) 26 [facility] CenterLpcoozxCKWQUDRDBV6441-86-92 10:24:00 Test Item Value Reference Range Interpretation Comments Segs (test code = Segs) 70.6 45.0-75.0 [place] 884130-12-07 10:24:00 Test Item Value Reference Range Interpretation Comments Lymphocytes (test code = Lymphocytes) 13.2 20.0-40.0 [place] 884130-12-07 10:24:00 Test Item Value Reference Range Interpretation Comments Monocytes (test code = Monocytes) 10.9 2.0-12.0 [place] 884130-12-07 10:24:00 Test Item Value Reference Range Interpretation Comments Eosinophils (test code = 4.6 See_Comment [A utomated message] The Eosinophils) system which ge nerated this result tra nsmitted reference range : <=4.0. The reference r christiano was not used to int erpret this result as normal/abnormal . [facility] CenterEnwxzhoXPTBGQYHDF1612-83-34 10:24:00 Test Item Value Reference Range Interpretation Comments Basophils (test code = 0.7 See_Comment [Aut omated message] The Basophils) system which ge nerated this result tra nsmitted reference range : <=1.0. The reference r christiano was not used to int erpret this result as normal/abnormal . [facility] CenterGlaarsbCIQIEAZMWY9678-38-92 10:24:00 Test Item Value Reference Range Interpretation Comments Neutrophils # (test code = Neutrophils 5.3 1.5-8.1 #) [place] 884130-12-07 10:24:00 Test Item Value Reference Range Interpretation Comments Lymphocytes # (test code = Lymphocytes 1.0 1.0-5.5 #) [facility] CenterNmqwaldEVCDZHGCXK4682-04-92 10:24:00 Test Item Value Reference Range Interpretation Comments Monocytes # (test code 0.8 See_Comment [Aut omated message] The = Monocytes #) system which generated this result tra nsmitted reference range : <=0.8. The reference r christiano was not used to int erpret this result as normal/abnormal . [facility] CenterAxebivaMWPCFDNXVX9464-45-52 10:24:00 Test Item Value Reference Range Interpretation Comments Eosinophils # (test code 0.3 See_Comment [A utomated message] The = Eosinophils #) system whic h generated this result tra nsmitted reference range : <=0.5. The reference r christiano was not used to int erpret this result as normal/abnormal . [facility] CenterUjvysnhDCXUAPSVPN2405-77-52 10:24:00 Test Item Value Reference Range Interpretation Comments Basophils # (test code 0.1 See_Comment [Aut omated message] The = Basophils #) system which generated this result tra nsmitted reference range : <=0.2. The reference r christiano was not used to int erpret this result as normal/abnormal . [facility] CenterQjexdlhQMPRNUFJCI6035-08-80 10:24:00 Test Item Value Reference Range Interpretation Comments WBC (test code = WBC) 7.5 3.7-10.4 [facility] CenterNkmqvowKUSZBXGODF3314-27-99 10:24:00 Test Item Value Reference Range Interpretation Comments RBC (test code = RBC) 3.85 4.20-5.40 [facility] CenterVyfmxbsRWKVTRSJJG6034-09-44 10:24:00 Test Item Value Reference Range Interpretation Comments Hgb (test code = Hgb) 10.6 12.0-16.0 [facility] CenterIwyfmkfYUWWRTMIYQ3549-84-46 10:24:00 Test Item Value Reference Range Interpretation Comments Hct (test code = Hct) 32.1 36.0-48.0 [facility] CenterIcohmyeTGLFGPJOGZ2915-36-14 10:24:00 Test Item Value Reference Range Interpretation Comments MCV (test code = MCV) 83.5 80.0-98.0 [facility] CenterWjnnwecLJBVKMKTMY6846-56-39 10:24:00 Test Item Value Reference Range Interpretation Comments MCH (test code = MCH) 27.7 pg 27.0-31.0 [facility] CenterXnmslczKSHGZZELOK9533-84-28 10:24:00 Test Item Value Reference Range Interpretation Comments MCHC (test code = MCHC) 33.1 32.0-36.0 [facility] CenterKrrwpqzDXZJIKYMXV9310-49-06 10:24:00 Test Item Value Reference Range Interpretation Comments RDW (test code = RDW) 16.8 11.5-14.5 [facility] CenterMoncujeHLDJPDQXYT4293-89-36 10:24:00 Test Item Value Reference Range Interpretation Comments Platelet (test code = Platelet) 185 133-450 [facility] CenterSzhgipdNVDAYPKGIS5953-77-57 10:24:00 Test Item Value Reference Range Interpretation Comments MPV (test code = MPV) 8.4 7.4-10.4 [facility]2020-12-07 10:24:00 Test Item Value Reference Range Interpretation Comments Glucose Lvl (test code = Glucose Lvl) 66 70-99 [facility]2020-12-07 10:24:00 Test Item Value Reference Range Interpretation Comments BUN (test code = BUN) 19 7-22 [facility]2020-12-07 10:24:00 Test Item Value Reference Range Interpretation Comments Creatinine Lvl (test code = Creatinine 1.82 0.50-1.40 Lvl) [facility]2020-12-07 10:24:00 Test Item Value Reference Range Interpretation Comments Sodium Lvl (test code = Sodium Lvl) 139 135-145 [facility]2020-12-07 10:24:00 Test Item Value Reference Range Interpretation Comments Potassium Lvl (test code = Potassium 4.2 3.5-5.1 Lvl) [facility]2020-12-07 10:24:00 Test Item Value Reference Range Interpretation Comments Chloride Lvl (test code = Chloride Lvl) 105 95-109 [facility]2020-12-07 10:24:00 Test Item Value Reference Range Interpretation Comments CO2 (test code = CO2) 28 24-32 [facility]2020-12-07 10:24:00 Test Item Value Reference Range Interpretation Comments Calcium Lvl (test code = Calcium Lvl) 8.2 8.5-10.5 [facility]2020-12-07 10:24:00 Test Item Value Reference Range Interpretation Comments AGAP (test code = AGAP) 10.2 10.0-20.0 [facility]2020-12-07 10:24:00 Test Item Value Reference Range Interpretation Comments eGFR (test code = eGFR) 26 [facility] CenterLihljvqUCSAGFBCJV9105-00-08 10:24:00 Test Item Value Reference Range Interpretation Comments Segs (test code = Segs) 70.6 45.0-75.0 [facility] CenterCkslohoOATDTZURTJ8645-21-56 10:24:00 Test Item Value Reference Range Interpretation Comments Lymphocytes (test code = Lymphocytes) 13.2 20.0-40.0 [place] 884130-12-07 10:24:00 Test Item Value Reference Range Interpretation Comments Monocytes (test code = Monocytes) 10.9 2.0-12.0 [place] 884130-12-07 10:24:00 Test Item Value Reference Range Interpretation Comments Eosinophils (test code = 4.6 See_Comment [A utomated message] The Eosinophils) system which ge nerated this result tra nsmitted reference range : <=4.0. The reference r christiano was not used to int erpret this result as normal/abnormal . [facility] CenterYhugigqCPUWNGAMNX7299-05-39 10:24:00 Test Item Value Reference Range Interpretation Comments Basophils (test code = 0.7 See_Comment [Aut omated message] The Basophils) system which ge nerated this result tra nsmitted reference range : <=1.0. The reference r christiano was not used to int erpret this result as normal/abnormal . [facility] CenterVepwlgdZPICLMCVYU6331-95-64 10:24:00 Test Item Value Reference Range Interpretation Comments Neutrophils # (test code = Neutrophils 5.3 1.5-8.1 #) [facility] CenterJsonfwyWXPPSOMLLY2335-84-03 10:24:00 Test Item Value Reference Range Interpretation Comments Lymphocytes # (test code = Lymphocytes 1.0 1.0-5.5 #) [place] 884130-12-07 10:24:00 Test Item Value Reference Range Interpretation Comments Monocytes # (test code 0.8 See_Comment [Aut omated message] The = Monocytes #) system which generated this result tra nsmitted reference range : <=0.8. The reference r christiano was not used to int erpret this result as normal/abnormal . [place] 884130-12-07 10:24:00 Test Item Value Reference Range Interpretation Comments Eosinophils # (test code 0.3 See_Comment [A utomated message] The = Eosinophils #) system whic h generated this result tra nsmitted reference range : <=0.5. The reference r christiano was not used to int erpret this result as normal/abnormal . [facility] CenterXvftrpnGXDSJRYQRM5396-76-21 10:24:00 Test Item Value Reference Range Interpretation Comments Basophils # (test code 0.1 See_Comment [Aut omated message] The = Basophils #) system which generated this result tra nsmitted reference range : <=0.2. The reference r christiano was not used to int erpret this result as normal/abnormal . [facility] CenterOaygpnuEWQEWYUPSF6730-79-62 10:24:00 Test Item Value Reference Range Interpretation Comments WBC (test code = WBC) 7.5 3.7-10.4 [facility] CenterEburvgfFHQCWOVBMM0264-74-90 10:24:00 Test Item Value Reference Range Interpretation Comments RBC (test code = RBC) 3.85 4.20-5.40 [facility] CenterFkytkwlNGVEKRPKRU9078-00-55 10:24:00 Test Item Value Reference Range Interpretation Comments Hgb (test code = Hgb) 10.6 12.0-16.0 [facility] CenterBzlcjatTKFFCCPVTX0409-59-98 10:24:00 Test Item Value Reference Range Interpretation Comments Hct (test code = Hct) 32.1 36.0-48.0 [facility] CenterBsfdbctZWSKAJVJDZ3428-77-51 10:24:00 Test Item Value Reference Range Interpretation Comments MCV (test code = MCV) 83.5 80.0-98.0 [facility] CenterUygwkwfLDGGTSFAOX4232-22-69 10:24:00 Test Item Value Reference Range Interpretation Comments MCH (test code = MCH) 27.7 pg 27.0-31.0 [facility] CenterUzcmzzgHWUHHFLAOR6420-02-73 10:24:00 Test Item Value Reference Range Interpretation Comments MCHC (test code = MCHC) 33.1 32.0-36.0 [facility] CenterYsqtjyqOPOWRGUUKJ3737-49-33 10:24:00 Test Item Value Reference Range Interpretation Comments RDW (test code = RDW) 16.8 11.5-14.5 [facility] CenterDbyyoydXFACRESDKS8835-04-18 10:24:00 Test Item Value Reference Range Interpretation Comments Platelet (test code = Platelet) 185 133-450 [place] 884130-12-07 10:24:00 Test Item Value Reference Range Interpretation Comments MPV (test code = MPV) 8.4 7.4-10.4 [place] 608590-12-07 10:24:00 Test Item Value Reference Range Interpretation Comments Glucose Lvl (test code = Glucose Lvl) 66 70-99 [place] [address]-12-07 10:24:00 Test Item Value Reference Range Interpretation Comments BUN (test code = BUN) 19 7-22 [place] [address]-12-07 10:24:00 Test Item Value Reference Range Interpretation Comments Creatinine Lvl (test code = Creatinine 1.82 0.50-1.40 Lvl) [place] 608590-12-07 10:24:00 Test Item Value Reference Range Interpretation Comments Sodium Lvl (test code = Sodium Lvl) 139 135-145 [place] 608590-12-07 10:24:00 Test Item Value Reference Range Interpretation Comments Potassium Lvl (test code = Potassium 4.2 3.5-5.1 Lvl) [place] 608590-12-07 10:24:00 Test Item Value Reference Range Interpretation Comments Chloride Lvl (test code = Chloride Lvl) 105 95-109 [facility]2020-12-07 10:24:00 Test Item Value Reference Range Interpretation Comments CO2 (test code = CO2) 28 24-32 [place] 608590-12-07 10:24:00 Test Item Value Reference Range Interpretation Comments Calcium Lvl (test code = Calcium Lvl) 8.2 8.5-10.5 [place] 608590-12-07 10:24:00 Test Item Value Reference Range Interpretation Comments AGAP (test code = AGAP) 10.2 10.0-20.0 [place] [address]-12-07 10:24:00 Test Item Value Reference Range Interpretation Comments eGFR (test code = eGFR) 26 [place] [address]-12-07 10:24:00 Test Item Value Reference Range Interpretation Comments Segs (test code = Segs) 70.6 45.0-75.0 [place] 884130-12-07 10:24:00 Test Item Value Reference Range Interpretation Comments Lymphocytes (test code = Lymphocytes) 13.2 20.0-40.0 [facility] CenterWojvdknEPLPLESUNO0283-73-51 10:24:00 Test Item Value Reference Range Interpretation Comments Monocytes (test code = Monocytes) 10.9 2.0-12.0 [facility] CenterCeoogurFBDMSWAISA2351-89-13 10:24:00 Test Item Value Reference Range Interpretation Comments Eosinophils (test code = 4.6 See_Comment [A utomated message] The Eosinophils) system which ge nerated this result tra nsmitted reference range : <=4.0. The reference r christiano was not used to int erpret this result as normal/abnormal . [facility] CenterWfhigamPSOJDSTOPG8296-21-27 10:24:00 Test Item Value Reference Range Interpretation Comments Basophils (test code = 0.7 See_Comment [Aut omated message] The Basophils) system which ge nerated this result tra nsmitted reference range : <=1.0. The reference r christiano was not used to int erpret this result as normal/abnormal . [facility] CenterRlicgvdVJGLWOTXYB2260-15-56 10:24:00 Test Item Value Reference Range Interpretation Comments Neutrophils # (test code = Neutrophils 5.3 1.5-8.1 #) [facility] CenterBhispbyNVGCRBQBAR4756-11-96 10:24:00 Test Item Value Reference Range Interpretation Comments Lymphocytes # (test code = Lymphocytes 1.0 1.0-5.5 #) [facility] CenterEhofjftKWQCMWAXLM0628-25-40 10:24:00 Test Item Value Reference Range Interpretation Comments Monocytes # (test code 0.8 See_Comment [Aut omated message] The = Monocytes #) system which generated this result tra nsmitted reference range : <=0.8. The reference r christiano was not used to int erpret this result as normal/abnormal . [facility] CenterAjpetygXJSMHKXNKT6750-69-81 10:24:00 Test Item Value Reference Range Interpretation Comments Eosinophils # (test code 0.3 See_Comment [A utomated message] The = Eosinophils #) system whic h generated this result tra nsmitted reference range : <=0.5. The reference r christiano was not used to int erpret this result as normal/abnormal . [facility] CenterNxjbsfnPODCXLTASQ5579-95-40 10:24:00 Test Item Value Reference Range Interpretation Comments Basophils # (test code 0.1 See_Comment [Aut omated message] The = Basophils #) system which generated this result tra nsmitted reference range : <=0.2. The reference r christiano was not used to int erpret this result as normal/abnormal . [facility] CenterOackkhvSHIDUYCXHX2961-75-44 10:24:00 Test Item Value Reference Range Interpretation Comments WBC (test code = WBC) 7.5 3.7-10.4 [facility] CenterQreyklxJUIRYESCVF1801-40-40 10:24:00 Test Item Value Reference Range Interpretation Comments RBC (test code = RBC) 3.85 4.20-5.40 [facility] CenterUokwnbuGBEYEPSLTG1504-26-50 10:24:00 Test Item Value Reference Range Interpretation Comments Hgb (test code = Hgb) 10.6 12.0-16.0 [facility] CenterDdhpqgkUDAFSTNMQS4718-38-30 10:24:00 Test Item Value Reference Range Interpretation Comments Hct (test code = Hct) 32.1 36.0-48.0 [facility] CenterRdbshkrEHOQKRITEF3304-24-05 10:24:00 Test Item Value Reference Range Interpretation Comments MCV (test code = MCV) 83.5 80.0-98.0 [facility] CenterXybnklkTYEBXLJZLJ9251-65-23 10:24:00 Test Item Value Reference Range Interpretation Comments MCH (test code = MCH) 27.7 pg 27.0-31.0 [facility] CenterYzydzfaVCUCTYJAMH6930-07-07 10:24:00 Test Item Value Reference Range Interpretation Comments MCHC (test code = MCHC) 33.1 32.0-36.0 [facility] CenterLdqqvqcHRHRLBGSEM3729-07-93 10:24:00 Test Item Value Reference Range Interpretation Comments RDW (test code = RDW) 16.8 11.5-14.5 [facility] CenterAtxxqmiOASGAZHYSZ2481-55-72 10:24:00 Test Item Value Reference Range Interpretation Comments Platelet (test code = Platelet) 185 133-450 [facility] CenterMyghgxmVUZIDQKVIZ1058-18-02 10:24:00 Test Item Value Reference Range Interpretation Comments MPV (test code = MPV) 8.4 7.4-10.4 [facility]2020-12-06 09:53:13 Test Item Value Reference Range Interpretation Comments Magnesium Lvl (test code = Magnesium 2.2 1.8-2.4 Lvl) [facility]2020-12-06 09:53:13 Test Item Value Reference Range Interpretation Comments Phosphorus (test code = Phosphorus) 2.9 2.5-4.5 [place] 608590-12-06 09:53:13 Test Item Value Reference Range Interpretation Comments Glucose Lvl (test code = Glucose Lvl) 102 70-99 [place] [address]-12-06 09:53:13 Test Item Value Reference Range Interpretation Comments BUN (test code = BUN) 17 7-22 [place] [address]-12-06 09:53:13 Test Item Value Reference Range Interpretation Comments Creatinine Lvl (test code = Creatinine 1.51 0.50-1.40 Lvl) [place] [address]-12-06 09:53:13 Test Item Value Reference Range Interpretation Comments Sodium Lvl (test code = Sodium Lvl) 140 135-145 [place] [address]-12-06 09:53:13 Test Item Value Reference Range Interpretation Comments Potassium Lvl (test code = Potassium 3.5 3.5-5.1 Lvl) [place] 608590-12-06 09:53:13 Test Item Value Reference Range Interpretation Comments Chloride Lvl (test code = Chloride Lvl) 106 95-109 [place] 608590-12-06 09:53:13 Test Item Value Reference Range Interpretation Comments CO2 (test code = CO2) 29 24-32 [place] 608590-12-06 09:53:13 Test Item Value Reference Range Interpretation Comments Calcium Lvl (test code = Calcium Lvl) 8.3 8.5-10.5 [place] [address]8590-12-06 09:53:13 Test Item Value Reference Range Interpretation Comments AGAP (test code = AGAP) 8.5 10.0-20.0 [place] 608590-12-06 09:53:13 Test Item Value Reference Range Interpretation Comments eGFR (test code = eGFR) 33 [place] [address]-12-06 09:53:13 Test Item Value Reference Range Interpretation Comments WBC (test code = WBC) 8.7 3.7-10.4 [place] [address]-12-06 09:53:13 Test Item Value Reference Range Interpretation Comments RBC (test code = RBC) 3.96 4.20-5.[address]12-06 09:53:13 Test Item Value Reference Range Interpretation Comments Hgb (test code = Hgb) 10.7 12.0-16.0 [place] [address]-12-06 09:53:13 Test Item Value Reference Range Interpretation Comments Hct (test code = Hct) 32.8 36.0-48.0 [address]12-06 09:53:13 Test Item Value Reference Range Interpretation Comments MCV (test code = MCV) 83.0 80.0-98.0 [address]12-06 09:53:13 Test Item Value Reference Range Interpretation Comments MCH (test code = MCH) 26.9 pg 27.0-31.0 [place] [address]-12-06 09:53:13 Test Item Value Reference Range Interpretation Comments MCHC (test code = MCHC) 32.4 32.0-36.0 [place] [address]-12-06 09:53:13 Test Item Value Reference Range Interpretation Comments RDW (test code = RDW) 16.5 11.5-14.5 [address]12-06 09:53:13 Test Item Value Reference Range Interpretation Comments Platelet (test code = Platelet) 157 133-450 [place] [address]-12-06 09:53:13 Test Item Value Reference Range Interpretation Comments MPV (test code = MPV) 7.5 7.4-10.4 [place] [address]-12-06 09:53:13 Test Item Value Reference Range Interpretation Comments Neutrophils # (test code = Neutrophils 7.2 1.5-8.1 #) [place] [address]-12-06 09:53:13 Test Item Value Reference Range Interpretation Comments Lymphocytes # (test code = Lymphocytes 0.9 1.0-5.5 #) [place] [address]-12-06 09:53:13 Test Item Value Reference Range Interpretation Comments Monocytes # (test code 0.5 See_Comment [Aut omated message] The = Monocytes #) system which generated this result tra nsmitted reference range : <=0.8. The reference r christiano was not used to int erpret this result as normal/abnormal . [place] [address]-12-06 09:53:13 Test Item Value Reference Range Interpretation Comments Basophils # (test code 0.1 See_Comment [Aut omated message] The = Basophils #) system which generated this result tra nsmitted reference range : <=0.2. The reference r christiano was not used to int erpret this result as normal/abnormal . [facility] CenterBajfscqASHVXYQCNI6371-18-73 09:53:13 Test Item Value Reference Range Interpretation Comments Segs (test code = Segs) 83.0 45.0-75.0 [facility] CenterClffeteSAHPPHISIX2367-16-10 09:53:13 Test Item Value Reference Range Interpretation Comments Bands (test code = 0.0 See_Comment [Automat ed message] The Bands) system which ge nerated this result transmit sheba reference range : <=11.0. The reference r christiano was not used to interpr et this result as edy l/abnormal. [facility] CenterRjiifxnQSBMHVXWFD1584-17-52 09:53:13 Test Item Value Reference Range Interpretation Comments Lymphocytes (test code = Lymphocytes) 10.0 20.0-40.0 [facility] CenterKtzmtquAHILWIKGKO5734-60-42 09:53:13 Test Item Value Reference Range Interpretation Comments Monocytes (test code = Monocytes) 6.0 2.0-12.0 [facility] CenterFyljzpuPLQZGZHBXA7922-38-79 09:53:13 Test Item Value Reference Range Interpretation Comments Basophils (test code = 1.0 See_Comment [Aut omated message] The Basophils) system which ge nerated this result tra nsmitted reference range : <=1.0. The reference r christiano was not used to int erpret this result as normal/abnormal . [facility] CenterHieukiuZLJXBDUXFF7868-52-67 09:53:13 Test Item Value Reference Range Interpretation Comments Atypical Lymphs (test code = Atypical 0.0 Lymphs) [facility] CenterDhwsjccDKDXUFHTXA3062-33-18 09:53:13 Test Item Value Reference Range Interpretation Comments RBC Morph (test code = Normal (09/05/20 3:53 RBC Morph) AM) [facility] CenterZfrhyubYVPEGOSMAJ4222-90-09 09:53:13 Test Item Value Reference Range Interpretation Comments Plt Morph (test code = Normal (09/05/20 3:53 Plt Morph) AM) [facility]2020-12-06 09:53:13 Test Item Value Reference Range Interpretation Comments Magnesium Lvl (test code = Magnesium 2.2 1.8-2.4 Lvl) [place] [address]-12-06 09:53:13 Test Item Value Reference Range Interpretation Comments Phosphorus (test code = Phosphorus) 2.9 2.5-4.5 [place] [address]8590-12-06 09:53:13 Test Item Value Reference Range Interpretation Comments Glucose Lvl (test code = Glucose Lvl) 102 70-99 [place] [address]-12-06 09:53:13 Test Item Value Reference Range Interpretation Comments BUN (test code = BUN) 17 7-22 [place] [address]-12-06 09:53:13 Test Item Value Reference Range Interpretation Comments Creatinine Lvl (test code = Creatinine 1.51 0.50-1.40 Lvl) [place] [address]8590-12-06 09:53:13 Test Item Value Reference Range Interpretation Comments Sodium Lvl (test code = Sodium Lvl) 140 135-145 [place] [address]8590-12-06 09:53:13 Test Item Value Reference Range Interpretation Comments Potassium Lvl (test code = Potassium 3.5 3.5-5.1 Lvl) [place] [address]-12-06 09:53:13 Test Item Value Reference Range Interpretation Comments Chloride Lvl (test code = Chloride Lvl) 106 95-109 [place] [address]8590-12-06 09:53:13 Test Item Value Reference Range Interpretation Comments CO2 (test code = CO2) 29 24-32 [place] [address]8590-12-06 09:53:13 Test Item Value Reference Range Interpretation Comments Calcium Lvl (test code = Calcium Lvl) 8.3 8.5-10.5 [place] [address]-12-06 09:53:13 Test Item Value Reference Range Interpretation Comments AGAP (test code = AGAP) 8.5 10.0-20.0 [place] [address]-12-06 09:53:13 Test Item Value Reference Range Interpretation Comments eGFR (test code = eGFR) 33 [place] [address]-12-06 09:53:13 Test Item Value Reference Range Interpretation Comments Magnesium Lvl (test code = Magnesium 2.2 1.8-2.4 Lvl) [place] [address]-12-06 09:53:13 Test Item Value Reference Range Interpretation Comments Phosphorus (test code = Phosphorus) 2.9 2.5-4.5 [place] [address]85[address]-12-06 09:53:13 Test Item Value Reference Range Interpretation Comments Glucose Lvl (test code = Glucose Lvl) 102 70-99 [place] [address]85[address]-12-06 09:53:13 Test Item Value Reference Range Interpretation Comments BUN (test code = BUN) 17 7-22 [place] [address]-12-06 09:53:13 Test Item Value Reference Range Interpretation Comments Creatinine Lvl (test code = Creatinine 1.51 0.50-1.40 Lvl) [place] [address]85[address]-12-06 09:53:13 Test Item Value Reference Range Interpretation Comments Sodium Lvl (test code = Sodium Lvl) 140 135-145 [place] [address]85[address]-12-06 09:53:13 Test Item Value Reference Range Interpretation Comments Potassium Lvl (test code = Potassium 3.5 3.5-5.1 Lvl) [place] [address]-12-06 09:53:13 Test Item Value Reference Range Interpretation Comments Chloride Lvl (test code = Chloride Lvl) 106 95-109 [facility] CenterOnytwhkAPNDLACDGS2596-69-31 09:53:13 Test Item Value Reference Range Interpretation Comments WBC (test code = WBC) 8.7 3.7-10.4 [place] [address]85[address]-12-06 09:53:13 Test Item Value Reference Range Interpretation Comments CO2 (test code = CO2) 29 24-32 [place] [address]85[address]-12-06 09:53:13 Test Item Value Reference Range Interpretation Comments Calcium Lvl (test code = Calcium Lvl) 8.3 8.5-10.5 [place] [address]85[address]-12-06 09:53:13 Test Item Value Reference Range Interpretation Comments AGAP (test code = AGAP) 8.5 10.0-20.0 [place] [address]8590-12-06 09:53:13 Test Item Value Reference Range Interpretation Comments eGFR (test code = eGFR) 33 [place] 884130-12-06 09:53:13 Test Item Value Reference Range Interpretation Comments WBC (test code = WBC) 8.7 3.7-10.4 [place] [address]-12-06 09:53:13 Test Item Value Reference Range Interpretation Comments RBC (test code = RBC) 3.96 4.20-5.40 [place] 884130-12-06 09:53:13 Test Item Value Reference Range Interpretation Comments Hgb (test code = Hgb) 10.7 12.0-16.0 [place] [address]-12-06 09:53:13 Test Item Value Reference Range Interpretation Comments Hct (test code = Hct) 32.8 36.0-48.0 [place] [address]-12-06 09:53:13 Test Item Value Reference Range Interpretation Comments MCV (test code = MCV) 83.0 80.0-98.0 [place] [address]-12-06 09:53:13 Test Item Value Reference Range Interpretation Comments MCH (test code = MCH) 26.9 pg 27.0-31.0 [place] [address]-12-06 09:53:13 Test Item Value Reference Range Interpretation Comments RBC (test code = RBC) 3.96 4.20-5.40 [place] [address]-12-06 09:53:13 Test Item Value Reference Range Interpretation Comments MCHC (test code = MCHC) 32.4 32.0-36.0 [place] [address]-12-06 09:53:13 Test Item Value Reference Range Interpretation Comments RDW (test code = RDW) 16.5 11.5-14.5 [place] [address]-12-06 09:53:13 Test Item Value Reference Range Interpretation Comments Platelet (test code = Platelet) 157 133-450 [place] 884130-12-06 09:53:13 Test Item Value Reference Range Interpretation Comments MPV (test code = MPV) 7.5 7.4-10.4 [place] [address]-12-06 09:53:13 Test Item Value Reference Range Interpretation Comments Neutrophils # (test code = Neutrophils 7.2 1.5-8.1 #) [place] [address]-12-06 09:53:13 Test Item Value Reference Range Interpretation Comments Lymphocytes # (test code = Lymphocytes 0.9 1.0-5.5 #) [place] [address]-12-06 09:53:13 Test Item Value Reference Range Interpretation Comments Monocytes # (test code 0.5 See_Comment [Aut omated message] The = Monocytes #) system which generated this result tra nsmitted reference range : <=0.8. The reference r christiano was not used to int erpret this result as normal/abnormal . [facility] CenterXoiieghUWBCXYDXCN2050-43-66 09:53:13 Test Item Value Reference Range Interpretation Comments Basophils # (test code 0.1 See_Comment [Aut omated message] The = Basophils #) system which generated this result tra nsmitted reference range : <=0.2. The reference r christiano was not used to int erpret this result as normal/abnormal . [facility] CenterJfjpjspUKEYROSMTR8569-82-27 09:53:13 Test Item Value Reference Range Interpretation Comments Segs (test code = Segs) 83.0 45.0-75.0 [facility] CenterNtglfdyWZOLTPEKFU3387-79-87 09:53:13 Test Item Value Reference Range Interpretation Comments Bands (test code = 0.0 See_Comment [Automat ed message] The Bands) system which ge nerated this result transmit sheba reference range : <=11.0. The reference r christiano was not used to interpr et this result as edy l/abnormal. [facility] CenterRixbmquUOHPZAAKZO3753-03-75 09:53:13 Test Item Value Reference Range Interpretation Comments Hgb (test code = Hgb) 10.7 12.0-16.0 [facility] CenterCfkclddBPMZJJIZSA4028-78-45 09:53:13 Test Item Value Reference Range Interpretation Comments Lymphocytes (test code = Lymphocytes) 10.0 20.0-40.0 [facility] CenterRkqlhqtZGPEZYZTZL7174-33-83 09:53:13 Test Item Value Reference Range Interpretation Comments Monocytes (test code = Monocytes) 6.0 2.0-12.0 [place] 884130-12-06 09:53:13 Test Item Value Reference Range Interpretation Comments Basophils (test code = 1.0 See_Comment [Aut omated message] The Basophils) system which ge nerated this result tra nsmitted reference range : <=1.0. The reference r christiano was not used to int erpret this result as normal/abnormal . [facility] CenterMauhpepNDVWNGOPDO3074-04-64 09:53:13 Test Item Value Reference Range Interpretation Comments Atypical Lymphs (test code = Atypical 0.0 Lymphs) [address]12-06 09:53:13 Test Item Value Reference Range Interpretation Comments RBC Morph (test code = Normal (09/05/20 3:53 RBC Morph) AM) [place] [address]-12-06 09:53:13 Test Item Value Reference Range Interpretation Comments Plt Morph (test code = Normal (09/05/20 3:53 Plt Morph) AM) [place] [address]-12-06 09:53:13 Test Item Value Reference Range Interpretation Comments Hct (test code = Hct) 32.8 36.0-48.0 [address]12-06 09:53:13 Test Item Value Reference Range Interpretation Comments MCV (test code = MCV) 83.0 80.0-98.0 [address]12-06 09:53:13 Test Item Value Reference Range Interpretation Comments MCH (test code = MCH) 26.9 pg 27.0-31.0 [place] [address]-12-06 09:53:13 Test Item Value Reference Range Interpretation Comments MCHC (test code = MCHC) 32.4 32.0-36.0 [place] [address]-12-06 09:53:13 Test Item Value Reference Range Interpretation Comments RDW (test code = RDW) 16.5 11.5-14.5 [address]12-06 09:53:13 Test Item Value Reference Range Interpretation Comments Platelet (test code = Platelet) 157 133-450 [place] [address]-12-06 09:53:13 Test Item Value Reference Range Interpretation Comments MPV (test code = MPV) 7.5 7.4-10.4 [address]12-06 09:53:13 Test Item Value Reference Range Interpretation Comments Neutrophils # (test code = Neutrophils 7.2 1.5-8.1 #) [place] [address]-12-06 09:53:13 Test Item Value Reference Range Interpretation Comments Lymphocytes # (test code = Lymphocytes 0.9 1.0-5.5 #) [address]12-06 09:53:13 Test Item Value Reference Range Interpretation Comments Monocytes # (test code 0.5 See_Comment [Aut omated message] The = Monocytes #) system which generated this result tra nsmitted reference range : <=0.8. The reference r christiano was not used to int erpret this result as normal/abnormal . [facility] CenterGvohikhJGEIUUKKWD5107-87-52 09:53:13 Test Item Value Reference Range Interpretation Comments Basophils # (test code 0.1 See_Comment [Aut omated message] The = Basophils #) system which generated this result tra nsmitted reference range : <=0.2. The reference r christiano was not used to int erpret this result as normal/abnormal . [facility] CenterGswzbqrMEBEOHKRKP2053-70-55 09:53:13 Test Item Value Reference Range Interpretation Comments Segs (test code = Segs) 83.0 45.0-75.0 [facility] CenterBkcozluVJMCUSVUBO9449-82-25 09:53:13 Test Item Value Reference Range Interpretation Comments Bands (test code = 0.0 See_Comment [Automat ed message] The Bands) system which ge nerated this result transmit sheba reference range : <=11.0. The reference r christiano was not used to interpr et this result as edy l/abnormal. [facility] CenterMlsxpirYTGQYKYWRS9698-56-67 09:53:13 Test Item Value Reference Range Interpretation Comments Lymphocytes (test code = Lymphocytes) 10.0 20.0-40.0 [facility] CenterBkebatyZVJRISTHYK4212-99-78 09:53:13 Test Item Value Reference Range Interpretation Comments Monocytes (test code = Monocytes) 6.0 2.0-12.0 [facility] CenterLyoutonYGWXMGAXGQ3285-09-71 09:53:13 Test Item Value Reference Range Interpretation Comments Basophils (test code = 1.0 See_Comment [Aut omated message] The Basophils) system which ge nerated this result tra nsmitted reference range : <=1.0. The reference r christiano was not used to int erpret this result as normal/abnormal . [facility] CenterUeoviuxJEWKCYYZEG1824-30-62 09:53:13 Test Item Value Reference Range Interpretation Comments Atypical Lymphs (test code = Atypical 0.0 Lymphs) [facility] CenterQcjjyquPFJHOSJANF2040-76-33 09:53:13 Test Item Value Reference Range Interpretation Comments RBC Morph (test code = Normal (09/05/20 3:53 RBC Morph) AM) [facility] CenterUoiqgehDXKDYLHVCJ9315-76-12 09:53:13 Test Item Value Reference Range Interpretation Comments Plt Morph (test code = Normal (09/05/20 3:53 Plt Morph) AM) [place] [address]-12-06 09:53:13 Test Item Value Reference Range Interpretation Comments Magnesium Lvl (test code = Magnesium 2.2 1.8-2.4 Lvl) [address]12-06 09:53:13 Test Item Value Reference Range Interpretation Comments Phosphorus (test code = Phosphorus) 2.9 2.5-4.5 [address]12-06 09:53:13 Test Item Value Reference Range Interpretation Comments Glucose Lvl (test code = Glucose Lvl) 102 70-99 [place] [address]-12-06 09:53:13 Test Item Value Reference Range Interpretation Comments BUN (test code = BUN) 17 7-22 [place] [address]-12-06 09:53:13 Test Item Value Reference Range Interpretation Comments Creatinine Lvl (test code = Creatinine 1.51 0.50-1.40 Lvl) [place] [address]-12-06 09:53:13 Test Item Value Reference Range Interpretation Comments Sodium Lvl (test code = Sodium Lvl) 140 135-145 [place] [address]8590-12-06 09:53:13 Test Item Value Reference Range Interpretation Comments Potassium Lvl (test code = Potassium 3.5 3.5-5.1 Lvl) [place] [address]8590-12-06 09:53:13 Test Item Value Reference Range Interpretation Comments Chloride Lvl (test code = Chloride Lvl) 106 95-109 [place] [address]-12-06 09:53:13 Test Item Value Reference Range Interpretation Comments CO2 (test code = CO2) 29 24-32 [place] [address]-12-06 09:53:13 Test Item Value Reference Range Interpretation Comments Calcium Lvl (test code = Calcium Lvl) 8.3 8.5-10.5 [place] [address]-12-06 09:53:13 Test Item Value Reference Range Interpretation Comments AGAP (test code = AGAP) 8.5 10.0-20.0 [place] 6085[address]-12-06 09:53:13 Test Item Value Reference Range Interpretation Comments eGFR (test code = eGFR) 33 [facility] CenterDztifxcRSNWXVUZBX1516-38-76 09:53:13 Test Item Value Reference Range Interpretation Comments WBC (test code = WBC) 8.7 3.7-10.4 [facility] CenterJppmiizJAAQFOYKDF8715-72-87 09:53:13 Test Item Value Reference Range Interpretation Comments RBC (test code = RBC) 3.96 4.20-5.40 [place] 884130-12-06 09:53:13 Test Item Value Reference Range Interpretation Comments Hgb (test code = Hgb) 10.7 12.0-16.0 [place] [address]-12-06 09:53:13 Test Item Value Reference Range Interpretation Comments Hct (test code = Hct) 32.8 36.0-48.0 [place] 884130-12-06 09:53:13 Test Item Value Reference Range Interpretation Comments MCV (test code = MCV) 83.0 80.0-98.0 [place] 884130-12-06 09:53:13 Test Item Value Reference Range Interpretation Comments MCH (test code = MCH) 26.9 pg 27.0-31.0 [facility] CenterLocumsmHLJNLWHHOG7647-13-87 09:53:13 Test Item Value Reference Range Interpretation Comments MCHC (test code = MCHC) 32.4 32.0-36.0 [facility] CenterUabdrojBSMWYMDOQM1757-41-67 09:53:13 Test Item Value Reference Range Interpretation Comments RDW (test code = RDW) 16.5 11.5-14.5 [facility] CenterSobhfpdFALTMCAAOD3201-47-53 09:53:13 Test Item Value Reference Range Interpretation Comments Platelet (test code = Platelet) 157 133-450 [place] 884130-12-06 09:53:13 Test Item Value Reference Range Interpretation Comments MPV (test code = MPV) 7.5 7.4-10.4 [place] 884130-12-06 09:53:13 Test Item Value Reference Range Interpretation Comments Neutrophils # (test code = Neutrophils 7.2 1.5-8.1 #) [facility] CenterAlydhwfILNJOKFRGM3467-40-20 09:53:13 Test Item Value Reference Range Interpretation Comments Lymphocytes # (test code = Lymphocytes 0.9 1.0-5.5 #) [address]12-06 09:53:13 Test Item Value Reference Range Interpretation Comments Monocytes # (test code 0.5 See_Comment [Aut omated message] The = Monocytes #) system which generated this result tra nsmitted reference range : <=0.8. The reference r christiano was not used to int erpret this result as normal/abnormal . [facility] CenterLzapzemPQBXFPLXQW3589-33-35 09:53:13 Test Item Value Reference Range Interpretation Comments Basophils # (test code 0.1 See_Comment [Aut omated message] The = Basophils #) system which generated this result tra nsmitted reference range : <=0.2. The reference r christiano was not used to int erpret this result as normal/abnormal . [facility] CenterKmlumdlEGYIXSSMLX3777-14-27 09:53:13 Test Item Value Reference Range Interpretation Comments Segs (test code = Segs) 83.0 45.0-75.0 [place] [address]-12-06 09:53:13 Test Item Value Reference Range Interpretation Comments Bands (test code = 0.0 See_Comment [Automat ed message] The Bands) system which ge nerated this result transmit sheba reference range : <=11.0. The reference r christiano was not used to interpr et this result as edy l/abnormal. [facility] CenterMtrnmpmGIDLGQSDPR2926-18-77 09:53:13 Test Item Value Reference Range Interpretation Comments Lymphocytes (test code = Lymphocytes) 10.0 20.0-40.0 [place] [address]-12-06 09:53:13 Test Item Value Reference Range Interpretation Comments Monocytes (test code = Monocytes) 6.0 2.0-12.0 [place] [address]-12-06 09:53:13 Test Item Value Reference Range Interpretation Comments Basophils (test code = 1.0 See_Comment [Aut omated message] The Basophils) system which ge nerated this result tra nsmitted reference range : <=1.0. The reference r christiano was not used to int erpret this result as normal/abnormal . [place] [address]-12-06 09:53:13 Test Item Value Reference Range Interpretation Comments Atypical Lymphs (test code = Atypical 0.0 Lymphs) [place] 884130-12-06 09:53:13 Test Item Value Reference Range Interpretation Comments RBC Morph (test code = Normal (09/05/20 3:53 RBC Morph) AM) [facility] 09:53:13 Test Item Value Reference Range Interpretation Comments Plt Morph (test code = Normal (09/05/20 3:53 Plt Morph) AM) [place] [address]-12-06 09:53:13 Test Item Value Reference Range Interpretation Comments Magnesium Lvl (test code = Magnesium 2.2 1.8-2.4 Lvl) [place] 608590-12-06 09:53:13 Test Item Value Reference Range Interpretation Comments Phosphorus (test code = Phosphorus) 2.9 2.5-4.5 [place] [address]-12-06 09:53:13 Test Item Value Reference Range Interpretation Comments Glucose Lvl (test code = Glucose Lvl) 102 70-99 [place] 608590-12-06 09:53:13 Test Item Value Reference Range Interpretation Comments BUN (test code = BUN) 17 7-22 [place] [address]-12-06 09:53:13 Test Item Value Reference Range Interpretation Comments Creatinine Lvl (test code = Creatinine 1.51 0.50-1.40 Lvl) [place] 608590-12-06 09:53:13 Test Item Value Reference Range Interpretation Comments Sodium Lvl (test code = Sodium Lvl) 140 135-145 [place] [address]-12-06 09:53:13 Test Item Value Reference Range Interpretation Comments Potassium Lvl (test code = Potassium 3.5 3.5-5.1 Lvl) [place] [address]-12-06 09:53:13 Test Item Value Reference Range Interpretation Comments Chloride Lvl (test code = Chloride Lvl) 106 95-109 [place] 608590-12-06 09:53:13 Test Item Value Reference Range Interpretation Comments CO2 (test code = CO2) 29 24-32 [place] 608590-12-06 09:53:13 Test Item Value Reference Range Interpretation Comments Calcium Lvl (test code = Calcium Lvl) 8.3 8.5-10.5 [place] [address]-12-06 09:53:13 Test Item Value Reference Range Interpretation Comments AGAP (test code = AGAP) 8.5 10.0-20.0 [facility]2020-12-06 09:53:13 Test Item Value Reference Range Interpretation Comments eGFR (test code = eGFR) 33 [place] [address]-12-06 09:53:13 Test Item Value Reference Range Interpretation Comments WBC (test code = WBC) 8.7 3.7-10.4 [place] [address]-12-06 09:53:13 Test Item Value Reference Range Interpretation Comments RBC (test code = RBC) 3.96 4.20-5.40 [place] [address]-12-06 09:53:13 Test Item Value Reference Range Interpretation Comments Hgb (test code = Hgb) 10.7 12.0-16.0 [place] [address]-12-06 09:53:13 Test Item Value Reference Range Interpretation Comments Hct (test code = Hct) 32.8 36.0-48.0 [place] [address]-12-06 09:53:13 Test Item Value Reference Range Interpretation Comments MCV (test code = MCV) 83.0 80.0-98.0 [place] [address]-12-06 09:53:13 Test Item Value Reference Range Interpretation Comments MCH (test code = MCH) 26.9 pg 27.0-31.0 [place] [address]-12-06 09:53:13 Test Item Value Reference Range Interpretation Comments MCHC (test code = MCHC) 32.4 32.0-36.0 [place] [address]-12-06 09:53:13 Test Item Value Reference Range Interpretation Comments RDW (test code = RDW) 16.5 11.5-14.5 [place] [address]-12-06 09:53:13 Test Item Value Reference Range Interpretation Comments Platelet (test code = Platelet) 157 133-450 [place] [address]-12-06 09:53:13 Test Item Value Reference Range Interpretation Comments MPV (test code = MPV) 7.5 7.4-10.4 [place] [address]-12-06 09:53:13 Test Item Value Reference Range Interpretation Comments Neutrophils # (test code = Neutrophils 7.2 1.5-8.1 #) [place] [address]-12-06 09:53:13 Test Item Value Reference Range Interpretation Comments Lymphocytes # (test code = Lymphocytes 0.9 1.0-5.5 #) [place] [address]-12-06 09:53:13 Test Item Value Reference Range Interpretation Comments Monocytes # (test code 0.5 See_Comment [Aut omated message] The = Monocytes #) system which generated this result tra nsmitted reference range : <=0.8. The reference r christiano was not used to int erpret this result as normal/abnormal . [place] [address]-12-06 09:53:13 Test Item Value Reference Range Interpretation Comments Basophils # (test code 0.1 See_Comment [Aut omated message] The = Basophils #) system which generated this result tra nsmitted reference range : <=0.2. The reference r christiano was not used to int erpret this result as normal/abnormal . [place] [address]-12-06 09:53:13 Test Item Value Reference Range Interpretation Comments Segs (test code = Segs) 83.0 45.0-75.0 [place] [address]-12-06 09:53:13 Test Item Value Reference Range Interpretation Comments Bands (test code = 0.0 See_Comment [Automat ed message] The Bands) system which ge nerated this result transmit sheba reference range : <=11.0. The reference r christiano was not used to interpr et this result as edy l/abnormal. [facility] CenterLkorybeZVCXTSUXTV9208-21-60 09:53:13 Test Item Value Reference Range Interpretation Comments Lymphocytes (test code = Lymphocytes) 10.0 20.0-40.0 [place] [address]-12-06 09:53:13 Test Item Value Reference Range Interpretation Comments Monocytes (test code = Monocytes) 6.0 2.0-12.0 [place] [address]-12-06 09:53:13 Test Item Value Reference Range Interpretation Comments Basophils (test code = 1.0 See_Comment [Aut omated message] The Basophils) system which ge nerated this result tra nsmitted reference range : <=1.0. The reference r christiano was not used to int erpret this result as normal/abnormal . [place] 884130-12-06 09:53:13 Test Item Value Reference Range Interpretation Comments Atypical Lymphs (test code = Atypical 0.0 Lymphs) [place] [address]-12-06 09:53:13 Test Item Value Reference Range Interpretation Comments RBC Morph (test code = Normal (09/05/20 3:53 RBC Morph) AM) [place] [address]-12-06 09:53:13 Test Item Value Reference Range Interpretation Comments Plt Morph (test code = Normal (09/05/20 3:53 Plt Morph) AM) [place] [address]-12-06 09:53:13 Test Item Value Reference Range Interpretation Comments Magnesium Lvl (test code = Magnesium 2.2 1.8-2.4 Lvl) [address]12-06 09:53:13 Test Item Value Reference Range Interpretation Comments Phosphorus (test code = Phosphorus) 2.9 2.5-4.5 [place] [address]-12-06 09:53:13 Test Item Value Reference Range Interpretation Comments Glucose Lvl (test code = Glucose Lvl) 102 70-99 [place] [address]-12-06 09:53:13 Test Item Value Reference Range Interpretation Comments BUN (test code = BUN) 17 7-22 [place] [address]-12-06 09:53:13 Test Item Value Reference Range Interpretation Comments Creatinine Lvl (test code = Creatinine 1.51 0.50-1.40 Lvl) [place] [address]-12-06 09:53:13 Test Item Value Reference Range Interpretation Comments Sodium Lvl (test code = Sodium Lvl) 140 135-145 [place] 608590-12-06 09:53:13 Test Item Value Reference Range Interpretation Comments Potassium Lvl (test code = Potassium 3.5 3.5-5.1 Lvl) [place] [address]-12-06 09:53:13 Test Item Value Reference Range Interpretation Comments Chloride Lvl (test code = Chloride Lvl) 106 95-109 [place] [address]-12-06 09:53:13 Test Item Value Reference Range Interpretation Comments CO2 (test code = CO2) 29 24-32 [place] [address]-12-06 09:53:13 Test Item Value Reference Range Interpretation Comments Calcium Lvl (test code = Calcium Lvl) 8.3 8.5-10.5 [address]12-06 09:53:13 Test Item Value Reference Range Interpretation Comments AGAP (test code = AGAP) 8.5 10.0-20.0 [place] [address]-12-06 09:53:13 Test Item Value Reference Range Interpretation Comments eGFR (test code = eGFR) 33 [place] [address]-12-06 09:53:13 Test Item Value Reference Range Interpretation Comments WBC (test code = WBC) 8.7 3.7-10.4 [place] [address]-12-06 09:53:13 Test Item Value Reference Range Interpretation Comments RBC (test code = RBC) 3.96 4.20-5.40 [place] [address]-12-06 09:53:13 Test Item Value Reference Range Interpretation Comments Hgb (test code = Hgb) 10.7 12.0-16.0 [place] [address]-12-06 09:53:13 Test Item Value Reference Range Interpretation Comments Hct (test code = Hct) 32.8 36.0-48.0 [place] [address]-12-06 09:53:13 Test Item Value Reference Range Interpretation Comments MCV (test code = MCV) 83.0 80.0-98.0 [place] [address]-12-06 09:53:13 Test Item Value Reference Range Interpretation Comments MCH (test code = MCH) 26.9 pg 27.0-31.0 [place] [address]-12-06 09:53:13 Test Item Value Reference Range Interpretation Comments MCHC (test code = MCHC) 32.4 32.0-36.0 [place] [address]-12-06 09:53:13 Test Item Value Reference Range Interpretation Comments RDW (test code = RDW) 16.5 11.5-14.5 [place] [address]-12-06 09:53:13 Test Item Value Reference Range Interpretation Comments Platelet (test code = Platelet) 157 133-450 [place] [address]-12-06 09:53:13 Test Item Value Reference Range Interpretation Comments MPV (test code = MPV) 7.5 7.4-10.4 [place] [address]-12-06 09:53:13 Test Item Value Reference Range Interpretation Comments Neutrophils # (test code = Neutrophils 7.2 1.5-8.1 #) [facility] CenterBvbhvurCHJHDSTYPP2589-22-20 09:53:13 Test Item Value Reference Range Interpretation Comments Lymphocytes # (test code = Lymphocytes 0.9 1.0-5.5 #) [facility] CenterZnhugqnNCSVWAWQNJ2571-81-39 09:53:13 Test Item Value Reference Range Interpretation Comments Monocytes # (test code 0.5 See_Comment [Aut omated message] The = Monocytes #) system which generated this result tra nsmitted reference range : <=0.8. The reference r christiano was not used to int erpret this result as normal/abnormal . [facility] CenterSyrtuguGKAWQJIPQT8569-39-84 09:53:13 Test Item Value Reference Range Interpretation Comments Basophils # (test code 0.1 See_Comment [Aut omated message] The = Basophils #) system which generated this result tra nsmitted reference range : <=0.2. The reference r christiano was not used to int erpret this result as normal/abnormal . [facility] CenterEvdvtphJRBPUJPEFK2885-99-83 09:53:13 Test Item Value Reference Range Interpretation Comments Segs (test code = Segs) 83.0 45.0-75.0 [facility] CenterGzorpojJVFUKOUTER4735-22-63 09:53:13 Test Item Value Reference Range Interpretation Comments Bands (test code = 0.0 See_Comment [Automat ed message] The Bands) system which ge nerated this result transmit sheba reference range : <=11.0. The reference r christiano was not used to interpr et this result as edy l/abnormal. [facility] CenterPiztdywPCFHDJBPDN5946-17-75 09:53:13 Test Item Value Reference Range Interpretation Comments Lymphocytes (test code = Lymphocytes) 10.0 20.0-40.0 [place] [address]-12-06 09:53:13 Test Item Value Reference Range Interpretation Comments Monocytes (test code = Monocytes) 6.0 2.0-12.0 [place] [address]-12-06 09:53:13 Test Item Value Reference Range Interpretation Comments Basophils (test code = 1.0 See_Comment [Aut omated message] The Basophils) system which ge nerated this result tra nsmitted reference range : <=1.0. The reference r christiano was not used to int erpret this result as normal/abnormal . [place] [address]-12-06 09:53:13 Test Item Value Reference Range Interpretation Comments Atypical Lymphs (test code = Atypical 0.0 Lymphs) [address]12-06 09:53:13 Test Item Value Reference Range Interpretation Comments RBC Morph (test code = Normal (09/05/20 3:53 RBC Morph) AM) [address]12-06 09:53:13 Test Item Value Reference Range Interpretation Comments Plt Morph (test code = Normal (09/05/20 3:53 Plt Morph) AM) [place] [address]-12-06 09:53:13 Test Item Value Reference Range Interpretation Comments Magnesium Lvl (test code = Magnesium 2.2 1.8-2.4 Lvl) [place] [address]-12-06 09:53:13 Test Item Value Reference Range Interpretation Comments Phosphorus (test code = Phosphorus) 2.9 2.5-4.5 [place] [address]-12-06 09:53:13 Test Item Value Reference Range Interpretation Comments Glucose Lvl (test code = Glucose Lvl) 102 70-99 [place] [address]-12-06 09:53:13 Test Item Value Reference Range Interpretation Comments BUN (test code = BUN) 17 7-22 [place] [address]-12-06 09:53:13 Test Item Value Reference Range Interpretation Comments Creatinine Lvl (test code = Creatinine 1.51 0.50-1.40 Lvl) [place] [address]-12-06 09:53:13 Test Item Value Reference Range Interpretation Comments Sodium Lvl (test code = Sodium Lvl) 140 135-145 [place] [address]-12-06 09:53:13 Test Item Value Reference Range Interpretation Comments Potassium Lvl (test code = Potassium 3.5 3.5-5.1 Lvl) [place] [address]-12-06 09:53:13 Test Item Value Reference Range Interpretation Comments Chloride Lvl (test code = Chloride Lvl) 106 95-109 [place] [address]-12-06 09:53:13 Test Item Value Reference Range Interpretation Comments CO2 (test code = CO2) 29 24-32 [place] [address]-12-06 09:53:13 Test Item Value Reference Range Interpretation Comments Calcium Lvl (test code = Calcium Lvl) 8.3 8.5-10.5 [place] 608590-12-06 09:53:13 Test Item Value Reference Range Interpretation Comments AGAP (test code = AGAP) 8.5 10.0-20.0 [place] [address]-12-06 09:53:13 Test Item Value Reference Range Interpretation Comments eGFR (test code = eGFR) 33 [place] 884130-12-06 09:53:13 Test Item Value Reference Range Interpretation Comments WBC (test code = WBC) 8.7 3.7-10.4 [place] [address]-12-06 09:53:13 Test Item Value Reference Range Interpretation Comments RBC (test code = RBC) 3.96 4.20-5.40 [place] [address]-12-06 09:53:13 Test Item Value Reference Range Interpretation Comments Hgb (test code = Hgb) 10.7 12.0-16.0 [place] [address]-12-06 09:53:13 Test Item Value Reference Range Interpretation Comments Hct (test code = Hct) 32.8 36.0-48.0 [place] [address]-12-06 09:53:13 Test Item Value Reference Range Interpretation Comments MCV (test code = MCV) 83.0 80.0-98.0 [place] 884130-12-06 09:53:13 Test Item Value Reference Range Interpretation Comments MCH (test code = MCH) 26.9 pg 27.0-31.0 [place] 884130-12-06 09:53:13 Test Item Value Reference Range Interpretation Comments MCHC (test code = MCHC) 32.4 32.0-36.0 [place] [address]-12-06 09:53:13 Test Item Value Reference Range Interpretation Comments RDW (test code = RDW) 16.5 11.5-14.5 [place] [address]-12-06 09:53:13 Test Item Value Reference Range Interpretation Comments Platelet (test code = Platelet) 157 133-450 [place] [address]-12-06 09:53:13 Test Item Value Reference Range Interpretation Comments MPV (test code = MPV) 7.5 7.4-10.4 [place] [address]-12-06 09:53:13 Test Item Value Reference Range Interpretation Comments Neutrophils # (test code = Neutrophils 7.2 1.5-8.1 #) [facility] CenterRarkxevJKMILSHMYU2464-49-20 09:53:13 Test Item Value Reference Range Interpretation Comments Lymphocytes # (test code = Lymphocytes 0.9 1.0-5.5 #) [place] 884130-12-06 09:53:13 Test Item Value Reference Range Interpretation Comments Monocytes # (test code 0.5 See_Comment [Aut omated message] The = Monocytes #) system which generated this result tra nsmitted reference range : <=0.8. The reference r christiano was not used to int erpret this result as normal/abnormal . [place] [address]-12-06 09:53:13 Test Item Value Reference Range Interpretation Comments Basophils # (test code 0.1 See_Comment [Aut omated message] The = Basophils #) system which generated this result tra nsmitted reference range : <=0.2. The reference r christiano was not used to int erpret this result as normal/abnormal . [facility] CenterHdxjgwqLOIXCQBRGK6780-79-79 09:53:13 Test Item Value Reference Range Interpretation Comments Segs (test code = Segs) 83.0 45.0-75.0 [place] [address]-12-06 09:53:13 Test Item Value Reference Range Interpretation Comments Bands (test code = 0.0 See_Comment [Automat ed message] The Bands) system which ge nerated this result transmit sheba reference range : <=11.0. The reference r christiano was not used to interpr et this result as edy l/abnormal. [facility] CenterXnokqhcWPXUUVLCHZ9737-64-66 09:53:13 Test Item Value Reference Range Interpretation Comments Lymphocytes (test code = Lymphocytes) 10.0 20.0-40.0 [place] [address]-12-06 09:53:13 Test Item Value Reference Range Interpretation Comments Monocytes (test code = Monocytes) 6.0 2.0-12.0 [place] [address]-12-06 09:53:13 Test Item Value Reference Range Interpretation Comments Basophils (test code = 1.0 See_Comment [Aut omated message] The Basophils) system which ge nerated this result tra nsmitted reference range : <=1.0. The reference r christiano was not used to int erpret this result as normal/abnormal . [place] [address]-12-06 09:53:13 Test Item Value Reference Range Interpretation Comments Atypical Lymphs (test code = Atypical 0.0 Lymphs) [address]12-06 09:53:13 Test Item Value Reference Range Interpretation Comments RBC Morph (test code = Normal (09/05/20 3:53 RBC Morph) AM) [address]12-06 09:53:13 Test Item Value Reference Range Interpretation Comments Plt Morph (test code = Normal (09/05/20 3:53 Plt Morph) AM) [place] [address]-12-06 09:53:13 Test Item Value Reference Range Interpretation Comments Magnesium Lvl (test code = Magnesium 2.2 1.8-2.4 Lvl) [place] [address]-12-06 09:53:13 Test Item Value Reference Range Interpretation Comments Phosphorus (test code = Phosphorus) 2.9 2.5-4.5 [place] [address]-12-06 09:53:13 Test Item Value Reference Range Interpretation Comments Glucose Lvl (test code = Glucose Lvl) 102 70-99 [place] [address]-12-06 09:53:13 Test Item Value Reference Range Interpretation Comments BUN (test code = BUN) 17 7-22 [place] [address]-12-06 09:53:13 Test Item Value Reference Range Interpretation Comments Creatinine Lvl (test code = Creatinine 1.51 0.50-1.40 Lvl) [place] [address]-12-06 09:53:13 Test Item Value Reference Range Interpretation Comments Sodium Lvl (test code = Sodium Lvl) 140 135-145 [place] [address]-12-06 09:53:13 Test Item Value Reference Range Interpretation Comments Potassium Lvl (test code = Potassium 3.5 3.5-5.1 Lvl) [place] [address]-12-06 09:53:13 Test Item Value Reference Range Interpretation Comments Chloride Lvl (test code = Chloride Lvl) 106 95-109 [place] [address]-12-06 09:53:13 Test Item Value Reference Range Interpretation Comments CO2 (test code = CO2) 29 24-32 [facility]2020-12-06 09:53:13 Test Item Value Reference Range Interpretation Comments Calcium Lvl (test code = Calcium Lvl) 8.3 8.5-10.5 [place] 608590-12-06 09:53:13 Test Item Value Reference Range Interpretation Comments AGAP (test code = AGAP) 8.5 10.0-20.0 [place] [address]-12-06 09:53:13 Test Item Value Reference Range Interpretation Comments eGFR (test code = eGFR) 33 [place] [address]-12-06 09:53:13 Test Item Value Reference Range Interpretation Comments WBC (test code = WBC) 8.7 3.7-10.4 [place] [address]-12-06 09:53:13 Test Item Value Reference Range Interpretation Comments RBC (test code = RBC) 3.96 4.20-5.40 [place] [address]-12-06 09:53:13 Test Item Value Reference Range Interpretation Comments Hgb (test code = Hgb) 10.7 12.0-16.0 [place] [address]-12-06 09:53:13 Test Item Value Reference Range Interpretation Comments Hct (test code = Hct) 32.8 36.0-48.0 [place] [address]-12-06 09:53:13 Test Item Value Reference Range Interpretation Comments MCV (test code = MCV) 83.0 80.0-98.0 [place] [address]-12-06 09:53:13 Test Item Value Reference Range Interpretation Comments MCH (test code = MCH) 26.9 pg 27.0-31.0 [place] [address]-12-06 09:53:13 Test Item Value Reference Range Interpretation Comments MCHC (test code = MCHC) 32.4 32.0-36.0 [place] [address]-12-06 09:53:13 Test Item Value Reference Range Interpretation Comments RDW (test code = RDW) 16.5 11.5-14.5 [place] [address]-12-06 09:53:13 Test Item Value Reference Range Interpretation Comments Platelet (test code = Platelet) 157 133-450 [place] [address]-12-06 09:53:13 Test Item Value Reference Range Interpretation Comments MPV (test code = MPV) 7.5 7.4-10.4 [facility] CenterZumibxsBCFSRZMIXV7374-59-84 09:53:13 Test Item Value Reference Range Interpretation Comments Neutrophils # (test code = Neutrophils 7.2 1.5-8.1 #) [facility] CenterOvwzfduEYAQTRETUQ5422-04-95 09:53:13 Test Item Value Reference Range Interpretation Comments Lymphocytes # (test code = Lymphocytes 0.9 1.0-5.5 #) [facility] CenterFpwzdcxQAEOOZGWJT6719-13-16 09:53:13 Test Item Value Reference Range Interpretation Comments Monocytes # (test code 0.5 See_Comment [Aut omated message] The = Monocytes #) system which generated this result tra nsmitted reference range : <=0.8. The reference r christiano was not used to int erpret this result as normal/abnormal . [facility] CenterJranqrcWFLNFFXMTA4830-12-66 09:53:13 Test Item Value Reference Range Interpretation Comments Basophils # (test code 0.1 See_Comment [Aut omated message] The = Basophils #) system which generated this result tra nsmitted reference range : <=0.2. The reference r christiano was not used to int erpret this result as normal/abnormal . [facility] CenterLhzvutoNAKIHFWBYT9173-55-32 09:53:13 Test Item Value Reference Range Interpretation Comments Segs (test code = Segs) 83.0 45.0-75.0 [facility] CenterPkbyqrlHFDYJWGOJJ8809-26-37 09:53:13 Test Item Value Reference Range Interpretation Comments Bands (test code = 0.0 See_Comment [Automat ed message] The Bands) system which ge nerated this result transmit sheba reference range : <=11.0. The reference r christiano was not used to interpr et this result as edy l/abnormal. [place] 884130-12-06 09:53:13 Test Item Value Reference Range Interpretation Comments Lymphocytes (test code = Lymphocytes) 10.0 20.0-40.0 [place] [address]-12-06 09:53:13 Test Item Value Reference Range Interpretation Comments Monocytes (test code = Monocytes) 6.0 2.0-12.0 [place] [address]-12-06 09:53:13 Test Item Value Reference Range Interpretation Comments Basophils (test code = 1.0 See_Comment [Aut omated message] The Basophils) system which ge nerated this result tra nsmitted reference range : <=1.0. The reference r christiano was not used to int erpret this result as normal/abnormal . [place] [address]-12-06 09:53:13 Test Item Value Reference Range Interpretation Comments Atypical Lymphs (test code = Atypical 0.0 Lymphs) [place] [address]-12-06 09:53:13 Test Item Value Reference Range Interpretation Comments RBC Morph (test code = Normal (09/05/20 3:53 RBC Morph) AM) [place] [address]-12-06 09:53:13 Test Item Value Reference Range Interpretation Comments Plt Morph (test code = Normal (09/05/20 3:53 Plt Morph) AM) [place] 608590-12-06 09:53:13 Test Item Value Reference Range Interpretation Comments Magnesium Lvl (test code = Magnesium 2.2 1.8-2.4 Lvl) [place] 608590-12-06 09:53:13 Test Item Value Reference Range Interpretation Comments Phosphorus (test code = Phosphorus) 2.9 2.5-4.5 [place] [address]-12-06 09:53:13 Test Item Value Reference Range Interpretation Comments Glucose Lvl (test code = Glucose Lvl) 102 70-99 [place] [address]297-12-06 09:53:13 Test Item Value Reference Range Interpretation Comments BUN (test code = BUN) 17 7-22 [place] [address]-12-06 09:53:13 Test Item Value Reference Range Interpretation Comments Creatinine Lvl (test code = Creatinine 1.51 0.50-1.40 Lvl) [place] 608590-12-06 09:53:13 Test Item Value Reference Range Interpretation Comments Sodium Lvl (test code = Sodium Lvl) 140 135-145 [place] [address]-12-06 09:53:13 Test Item Value Reference Range Interpretation Comments Potassium Lvl (test code = Potassium 3.5 3.5-5.1 Lvl) [place] [address]-12-06 09:53:13 Test Item Value Reference Range Interpretation Comments Chloride Lvl (test code = Chloride Lvl) 106 95-109 [place] 608590-12-06 09:53:13 Test Item Value Reference Range Interpretation Comments CO2 (test code = CO2) 29 24-32 [place] 608590-12-06 09:53:13 Test Item Value Reference Range Interpretation Comments Calcium Lvl (test code = Calcium Lvl) 8.3 8.5-10.5 [place] 608590-12-06 09:53:13 Test Item Value Reference Range Interpretation Comments AGAP (test code = AGAP) 8.5 10.0-20.0 [place] [address]-12-06 09:53:13 Test Item Value Reference Range Interpretation Comments eGFR (test code = eGFR) 33 [place] 884130-12-06 09:53:13 Test Item Value Reference Range Interpretation Comments WBC (test code = WBC) 8.7 3.7-10.4 [place] 884130-12-06 09:53:13 Test Item Value Reference Range Interpretation Comments RBC (test code = RBC) 3.96 4.20-5.40 [place] 884130-12-06 09:53:13 Test Item Value Reference Range Interpretation Comments Hgb (test code = Hgb) 10.7 12.0-16.0 [place] [address]-12-06 09:53:13 Test Item Value Reference Range Interpretation Comments Hct (test code = Hct) 32.8 36.0-48.0 [place] [address]-12-06 09:53:13 Test Item Value Reference Range Interpretation Comments MCV (test code = MCV) 83.0 80.0-98.0 [place] [address]-12-06 09:53:13 Test Item Value Reference Range Interpretation Comments MCH (test code = MCH) 26.9 pg 27.0-31.0 [place] [address]-12-06 09:53:13 Test Item Value Reference Range Interpretation Comments MCHC (test code = MCHC) 32.4 32.0-36.0 [place] [address]-12-06 09:53:13 Test Item Value Reference Range Interpretation Comments RDW (test code = RDW) 16.5 11.5-14.5 [place] 884130-12-06 09:53:13 Test Item Value Reference Range Interpretation Comments Platelet (test code = Platelet) 157 133-450 [place] [address]-12-06 09:53:13 Test Item Value Reference Range Interpretation Comments MPV (test code = MPV) 7.5 7.4-10.4 [place] [address]-12-06 09:53:13 Test Item Value Reference Range Interpretation Comments Neutrophils # (test code = Neutrophils 7.2 1.5-8.1 #) [place] [address]-12-06 09:53:13 Test Item Value Reference Range Interpretation Comments Lymphocytes # (test code = Lymphocytes 0.9 1.0-5.5 #) [place] [address]-12-06 09:53:13 Test Item Value Reference Range Interpretation Comments Monocytes # (test code 0.5 See_Comment [Aut omated message] The = Monocytes #) system which generated this result tra nsmitted reference range : <=0.8. The reference r christiano was not used to int erpret this result as normal/abnormal . [place] [address]-12-06 09:53:13 Test Item Value Reference Range Interpretation Comments Basophils # (test code 0.1 See_Comment [Aut omated message] The = Basophils #) system which generated this result tra nsmitted reference range : <=0.2. The reference r christiano was not used to int erpret this result as normal/abnormal . [place] [address]-12-06 09:53:13 Test Item Value Reference Range Interpretation Comments Segs (test code = Segs) 83.0 45.0-75.0 [place] [address]-12-06 09:53:13 Test Item Value Reference Range Interpretation Comments Bands (test code = 0.0 See_Comment [Automat ed message] The Bands) system which ge nerated this result transmit sheba reference range : <=11.0. The reference r christiano was not used to interpr et this result as edy l/abnormal. [place] [address]-12-06 09:53:13 Test Item Value Reference Range Interpretation Comments Lymphocytes (test code = Lymphocytes) 10.0 20.0-40.0 [place] [address]-12-06 09:53:13 Test Item Value Reference Range Interpretation Comments Monocytes (test code = Monocytes) 6.0 2.0-12.0 [place] 884130-12-06 09:53:13 Test Item Value Reference Range Interpretation Comments Basophils (test code = 1.0 See_Comment [Aut omated message] The Basophils) system which ge nerated this result tra nsmitted reference range : <=1.0. The reference r christiano was not used to int erpret this result as normal/abnormal . [place] 884130-12-06 09:53:13 Test Item Value Reference Range Interpretation Comments Atypical Lymphs (test code = Atypical 0.0 Lymphs) [place] [address]-12-06 09:53:13 Test Item Value Reference Range Interpretation Comments RBC Morph (test code = Normal (09/05/20 3:53 RBC Morph) AM) [place] 884130-12-06 09:53:13 Test Item Value Reference Range Interpretation Comments Plt Morph (test code = Normal (09/05/20 3:53 Plt Morph) AM) [facility]2020-12-06 09:53:13 Test Item Value Reference Range Interpretation Comments Magnesium Lvl (test code = Magnesium 2.2 1.8-2.4 Lvl) [facility]2020-12-06 09:53:13 Test Item Value Reference Range Interpretation Comments Phosphorus (test code = Phosphorus) 2.9 2.5-4.5 [place] 608590-12-06 09:53:13 Test Item Value Reference Range Interpretation Comments Glucose Lvl (test code = Glucose Lvl) 102 70-99 [place] 608590-12-06 09:53:13 Test Item Value Reference Range Interpretation Comments BUN (test code = BUN) 17 7-22 [place] [address]-12-06 09:53:13 Test Item Value Reference Range Interpretation Comments Creatinine Lvl (test code = Creatinine 1.51 0.50-1.40 Lvl) [place] 608590-12-06 09:53:13 Test Item Value Reference Range Interpretation Comments Sodium Lvl (test code = Sodium Lvl) 140 135-145 [place] 608590-12-06 09:53:13 Test Item Value Reference Range Interpretation Comments Potassium Lvl (test code = Potassium 3.5 3.5-5.1 Lvl) [place] [address]-12-06 09:53:13 Test Item Value Reference Range Interpretation Comments Chloride Lvl (test code = Chloride Lvl) 106 95-109 [place] [address]-12-06 09:53:13 Test Item Value Reference Range Interpretation Comments CO2 (test code = CO2) 29 24-32 [address]12-06 09:53:13 Test Item Value Reference Range Interpretation Comments Calcium Lvl (test code = Calcium Lvl) 8.3 8.5-10.5 [place] [address]-12-06 09:53:13 Test Item Value Reference Range Interpretation Comments AGAP (test code = AGAP) 8.5 10.0-20.0 [address]12-06 09:53:13 Test Item Value Reference Range Interpretation Comments eGFR (test code = eGFR) 33 [place] [address]-12-06 09:53:13 Test Item Value Reference Range Interpretation Comments WBC (test code = WBC) 8.7 3.7-10.4 [place] [address]-12-06 09:53:13 Test Item Value Reference Range Interpretation Comments RBC (test code = RBC) 3.96 4.20-5.40 [place] [address]-12-06 09:53:13 Test Item Value Reference Range Interpretation Comments Hgb (test code = Hgb) 10.7 12.0-16.0 [place] [address]-12-06 09:53:13 Test Item Value Reference Range Interpretation Comments Hct (test code = Hct) 32.8 36.0-48.0 [place] [address]-12-06 09:53:13 Test Item Value Reference Range Interpretation Comments MCV (test code = MCV) 83.0 80.0-98.0 [address]12-06 09:53:13 Test Item Value Reference Range Interpretation Comments MCH (test code = MCH) 26.9 pg 27.0-31.0 [place] [address]-12-06 09:53:13 Test Item Value Reference Range Interpretation Comments MCHC (test code = MCHC) 32.4 32.0-36.0 [address]12-06 09:53:13 Test Item Value Reference Range Interpretation Comments RDW (test code = RDW) 16.5 11.5-14.5 [place] 884130-12-06 09:53:13 Test Item Value Reference Range Interpretation Comments Platelet (test code = Platelet) 157 133-450 [facility]CvffqhcVBHSEMTLBQ0923-42-40 09:53:13 Test Item Value Reference Range Interpretation Comments MPV (test code = MPV) 7.5 7.4-10.4 [place] 884130-12-06 09:53:13 Test Item Value Reference Range Interpretation Comments Neutrophils # (test code = Neutrophils 7.2 1.5-8.1 #) [facility] CenterYsghydhCZPQCCDRAB9990-01-93 09:53:13 Test Item Value Reference Range Interpretation Comments Lymphocytes # (test code = Lymphocytes 0.9 1.0-5.5 #) [facility] CenterRiewixaCFHSNKJLIL0583-72-57 09:53:13 Test Item Value Reference Range Interpretation Comments Monocytes # (test code 0.5 See_Comment [Aut omated message] The = Monocytes #) system which generated this result tra nsmitted reference range : <=0.8. The reference r christiano was not used to int erpret this result as normal/abnormal . [facility] CenterUgpdypfQIFIBHVXLN1759-74-87 09:53:13 Test Item Value Reference Range Interpretation Comments Basophils # (test code 0.1 See_Comment [Aut omated message] The = Basophils #) system which generated this result tra nsmitted reference range : <=0.2. The reference r christiano was not used to int erpret this result as normal/abnormal . [facility] CenterFvufeckUMJKBKDVLU8714-57-35 09:53:13 Test Item Value Reference Range Interpretation Comments Segs (test code = Segs) 83.0 45.0-75.0 [place] [address]-12-06 09:53:13 Test Item Value Reference Range Interpretation Comments Bands (test code = 0.0 See_Comment [Automat ed message] The Bands) system which ge nerated this result transmit sheba reference range : <=11.0. The reference r christiano was not used to interpr et this result as edy l/abnormal. [place] 884130-12-06 09:53:13 Test Item Value Reference Range Interpretation Comments Lymphocytes (test code = Lymphocytes) 10.0 20.0-40.0 [place] [address]-12-06 09:53:13 Test Item Value Reference Range Interpretation Comments Monocytes (test code = Monocytes) 6.0 2.0-12.0 [place] [address]-12-06 09:53:13 Test Item Value Reference Range Interpretation Comments Basophils (test code = 1.0 See_Comment [Aut omated message] The Basophils) system which ge nerated this result tra nsmitted reference range : <=1.0. The reference r christiano was not used to int erpret this result as normal/abnormal . [place] [address]-12-06 09:53:13 Test Item Value Reference Range Interpretation Comments Atypical Lymphs (test code = Atypical 0.0 Lymphs) [address]12-06 09:53:13 Test Item Value Reference Range Interpretation Comments RBC Morph (test code = Normal (09/05/20 3:53 RBC Morph) AM) [place] [address]-12-06 09:53:13 Test Item Value Reference Range Interpretation Comments Plt Morph (test code = Normal (09/05/20 3:53 Plt Morph) AM) [place] [address]-12-06 09:53:00 Test Item Value Reference Range Interpretation Comments Coronavirus (COVID-19) Not Detected (09/05/20 JONATHAN (test code = 3:53 AM) Coronavirus (COVID-19) JONATHAN) [place] [address]-12-06 09:53:00 Test Item Value Reference Range Interpretation Comments Coronavirus (COVID-19) Not Detected (09/05/20 JONATHAN (test code = 3:53 AM) Coronavirus (COVID-19) JONATHAN) [place] [address]-12-06 09:53:00 Test Item Value Reference Range Interpretation Comments Coronavirus (COVID-19) Not Detected (09/05/20 JONATHAN (test code = 3:53 AM) Coronavirus (COVID-19) JONATHAN) [place] [address]-12-06 09:53:00 Test Item Value Reference Range Interpretation Comments Coronavirus (COVID-19) Not Detected (09/05/20 JONATHAN (test code = 3:53 AM) Coronavirus (COVID-19) JONATHAN) [place] [address]-12-06 09:53:00 Test Item Value Reference Range Interpretation Comments Coronavirus (COVID-19) Not Detected (09/05/20 JONATHAN (test code = 3:53 AM) Coronavirus (COVID-19) JONATHAN) [facility]HP[facility]UCL1694[facility]58-97 09:53:00 Test Item Value Reference Range Interpretation Comments Coronavirus (COVID-19) Not Detected (09/05/20 JONATHAN (test code = 3:53 AM) Coronavirus (COVID-19) JONATHAN) [place] 789040-12-06 09:53:00 Test Item Value Reference Range Interpretation Comments Coronavirus (COVID-19) Not Detected (09/05/20 JONATHAN (test code = 3:53 AM) Coronavirus (COVID-19) JONATHAN) [facility]landBmnzrjhZCZFGBSGMF5248-26-80 09:53:00 Test Item Value Reference Range Interpretation Comments Coronavirus (COVID-19) Not Detected (09/05/20 JONATHAN (test code = 3:53 AM) Coronavirus (COVID-19) JONATHAN) [facility]landUvjmsflKLWUYDNGAG7439-99-35 09:53:00 Test Item Value Reference Range Interpretation Comments Coronavirus (COVID-19) Not Detected (09/05/20 JONATHAN (test code = 3:53 AM) Coronavirus (COVID-19) JONATHAN) [facility]landYnvdgaxQWLOIRCIVY4279-14-15 09:53:00 Test Item Value Reference Range Interpretation Comments Coronavirus (COVID-19) Not Detected (09/05/20 JONATHAN (test code = 3:53 AM) Coronavirus (COVID-19) J[facility]ATHAN) [facility] [id number] 04:34:00 Test Item Value Reference Range Interpretation Comments Troponin-I (test code no gt See_Comment [Auto mated message] The = Troponin-I) system which g enerated this result transmit sheba reference range : <=0.40. The reference r christiano was not used to interpr et this result as edy l/abnormal. [facility] [id number] 04:34:00 Test Item Value Reference Range Interpretation Comments Glucose Lvl (test code = Glucose Lvl) 125 70-99 [facility] [id number] 04:34:00 Test Item Value Reference Range Interpretation Comments BUN (test code = BUN) 17 7-22 [place] 608590-12-06 04:34:00 Test Item Value Reference Range Interpretation Comments Creatinine Lvl (test code = Creatinine 1.51 0.50-1.40 Lvl) [place] 608590-12-06 04:34:00 Test Item Value Reference Range Interpretation Comments Sodium Lvl (test code = Sodium Lvl) 142 135-145 [place] 608590-12-06 04:34:00 Test Item Value Reference Range Interpretation Comments Potassium Lvl (test code = Potassium 4.0 3.5-5.1 Lvl) [place] 608590-12-06 04:34:00 Test Item Value Reference Range Interpretation Comments Chloride Lvl (test code = Chloride Lvl) 108 95-109 [place] 608590-12-06 04:34:00 Test Item Value Reference Range Interpretation Comments CO2 (test code = CO2) 30 24-32 [place] 608590-12-06 04:34:00 Test Item Value Reference Range Interpretation Comments Calcium Lvl (test code = Calcium Lvl) 7.8 8.5-10.5 [place] 608590-12-06 04:34:00 Test Item Value Reference Range Interpretation Comments AGAP (test code = AGAP) 8.0 10.0-20.0 [place] 608590-12-06 04:34:00 Test Item Value Reference Range Interpretation Comments eGFR (test code = eGFR) 33 [place] 884130-12-06 04:34:00 Test Item Value Reference Range Interpretation Comments WBC X 10x3 (test code = WBC X 10x3) 9.7 3.7-10.4 [place] [address]-12-06 04:34:00 Test Item Value Reference Range Interpretation Comments RBC X 10x6 (test code = RBC X 10x6) 3.96 4.20-5.40 [place] [address]-12-06 04:34:00 Test Item Value Reference Range Interpretation Comments Hgb (test code = Hgb) 10.6 12.0-16.0 [place] [address]-12-06 04:34:00 Test Item Value Reference Range Interpretation Comments Hct (test code = Hct) 32.6 36.0-48.0 [place] 884130-12-06 04:34:00 Test Item Value Reference Range Interpretation Comments MCV (test code = MCV) 82.3 80.0-98.0 [place] 884130-12-06 04:34:00 Test Item Value Reference Range Interpretation Comments MCH (test code = MCH) 26.6 pg 27.0-31.0 [place] 884130-12-06 04:34:00 Test Item Value Reference Range Interpretation Comments MCHC (test code = MCHC) 32.4 32.0-36.0 [place] 884130-12-06 04:34:00 Test Item Value Reference Range Interpretation Comments RDW (test code = RDW) 16.8 11.5-14.5 [place] 884130-12-06 04:34:00 Test Item Value Reference Range Interpretation Comments Platelet (test code = Platelet) 178 133-450 [facility] CenterWtkqdjkZKXXVGECZK7312-40-00 04:34:00 Test Item Value Reference Range Interpretation Comments MPV (test code = MPV) 8.0 7.4-10.4 [place] 884130-12-06 04:34:00 Test Item Value Reference Range Interpretation Comments PT (test code = PT) 14.7 s 12.0-14.7 [place] 884130-12-06 04:34:00 Test Item Value Reference Range Interpretation Comments INR (test code = INR) 1.14 1 0.85-1.17 [place] 884130-12-06 04:34:00 Test Item Value Reference Range Interpretation Comments PTT (test code = PTT) 31.2 s 22.9-35.8 [place] [address]-12-06 04:34:00 Test Item Value Reference Range Interpretation Comments Segs (test code = Segs) 73.9 45.0-75.0 [place] [address]-12-06 04:34:00 Test Item Value Reference Range Interpretation Comments Lymphocytes (test code = Lymphocytes) 11.0 20.0-40.0 [place] 884130-12-06 04:34:00 Test Item Value Reference Range Interpretation Comments Monocytes (test code = Monocytes) 13.6 2.0-12.0 [place] 884130-12-06 04:34:00 Test Item Value Reference Range Interpretation Comments Eosinophils (test code = 0.7 See_Comment [A utomated message] The Eosinophils) system which ge nerated this result tra nsmitted reference range : <=4.0. The reference r christiano was not used to int erpret this result as normal/abnormal . [facility] CenterGvyhmdrULALFCBPBN3076-21-63 04:34:00 Test Item Value Reference Range Interpretation Comments Basophils (test code = 0.8 See_Comment [Aut omated message] The Basophils) system which ge nerated this result tra nsmitted reference range : <=1.0. The reference r christiano was not used to int erpret this result as normal/abnormal . [facility] CenterTtkiuvsAATWPOXKVS8151-70-24 04:34:00 Test Item Value Reference Range Interpretation Comments Neutrophils # (test code = Neutrophils 7.2 1.5-8.1 #) [facility] CenterAmmcfnmOSXMBHJFRG8932-34-76 04:34:00 Test Item Value Reference Range Interpretation Comments Lymphocytes # (test code = Lymphocytes 1.1 1.0-5.5 #) [facility] CenterKmbwisiFSTDBTVBBC8518-71-96 04:34:00 Test Item Value Reference Range Interpretation Comments Monocytes # (test code 1.3 See_Comment [Aut omated message] The = Monocytes #) system which generated this result tra nsmitted reference range : <=0.8. The reference r christiano was not used to int erpret this result as normal/abnormal . [facility] CenterOsshjvoPREMJNKORC3239-11-50 04:34:00 Test Item Value Reference Range Interpretation Comments Eosinophils # (test code 0.1 See_Comment [A utomated message] The = Eosinophils #) system whic h generated this result tra nsmitted reference range : <=0.5. The reference r christiano was not used to int erpret this result as normal/abnormal . [facility] CenterYtuuucfRRIGNEWVGN1232-27-11 04:34:00 Test Item Value Reference Range Interpretation Comments Basophils # (test code 0.1 See_Comment [Aut omated message] The = Basophils #) system which generated this result tra nsmitted reference range : <=0.2. The reference r christiano was not used to int erpret this result as normal/abnormal . [facility] KCDKUVI7306-31-48 04:34:00 Test Item Value Reference Range Interpretation Comments Troponin-I (test code no gt See_Comment [Auto mated message] The = Troponin-I) system which g enerated this result transmit sheba reference range : <=0.40. The reference r christiano was not used to interpr et this result as edy l/abnormal. [facility]2020-12-06 04:34:00 Test Item Value Reference Range Interpretation Comments Glucose Lvl (test code = Glucose Lvl) 125 70-99 [place] 608590-12-06 04:34:00 Test Item Value Reference Range Interpretation Comments BUN (test code = BUN) 17 7-22 [place] [address]-12-06 04:34:00 Test Item Value Reference Range Interpretation Comments Creatinine Lvl (test code = Creatinine 1.51 0.50-1.40 Lvl) [place] 608590-12-06 04:34:00 Test Item Value Reference Range Interpretation Comments Sodium Lvl (test code = Sodium Lvl) 142 135-145 [place] 608590-12-06 04:34:00 Test Item Value Reference Range Interpretation Comments Potassium Lvl (test code = Potassium 4.0 3.5-5.1 Lvl) [place] 608590-12-06 04:34:00 Test Item Value Reference Range Interpretation Comments Chloride Lvl (test code = Chloride Lvl) 108 95-109 [place] 608590-12-06 04:34:00 Test Item Value Reference Range Interpretation Comments CO2 (test code = CO2) 30 24-32 [place] 608590-12-06 04:34:00 Test Item Value Reference Range Interpretation Comments Calcium Lvl (test code = Calcium Lvl) 7.8 8.5-10.5 [place] 608590-12-06 04:34:00 Test Item Value Reference Range Interpretation Comments AGAP (test code = AGAP) 8.0 10.0-20.0 [place] 608590-12-06 04:34:00 Test Item Value Reference Range Interpretation Comments eGFR (test code = eGFR) 33 [place] [address]-12-06 04:34:00 Test Item Value Reference Range Interpretation Comments WBC X 10x3 (test code = WBC X 10x3) 9.7 3.7-10.4 [place] [address]-12-06 04:34:00 Test Item Value Reference Range Interpretation Comments RBC X 10x6 (test code = RBC X 10x6) 3.96 4.20-5.40 [facility] CenterTrrozvbQESDBHSPDU3586-41-54 04:34:00 Test Item Value Reference Range Interpretation Comments Hgb (test code = Hgb) 10.6 12.0-16.0 [place] 884130-12-06 04:34:00 Test Item Value Reference Range Interpretation Comments Hct (test code = Hct) 32.6 36.0-48.0 [facility] CenterZrwdhyzNGECDKFJMZ7291-06-32 04:34:00 Test Item Value Reference Range Interpretation Comments MCV (test code = MCV) 82.3 80.0-98.0 [place] 884130-12-06 04:34:00 Test Item Value Reference Range Interpretation Comments MCH (test code = MCH) 26.6 pg 27.0-31.0 [facility] CenterZmtldpzNUNTLYWXCF4627-79-84 04:34:00 Test Item Value Reference Range Interpretation Comments MCHC (test code = MCHC) 32.4 32.0-36.0 [facility] CenterNexxzbxTXVEBIGLSR7644-70-44 04:34:00 Test Item Value Reference Range Interpretation Comments RDW (test code = RDW) 16.8 11.5-14.5 [facility] CenterPraczepNJVUGVFKKH2327-65-13 04:34:00 Test Item Value Reference Range Interpretation Comments Platelet (test code = Platelet) 178 133-450 [facility] CenterXhfxzczOHJSXYUJNY5635-42-15 04:34:00 Test Item Value Reference Range Interpretation Comments MPV (test code = MPV) 8.0 7.4-10.4 [place] 884130-12-06 04:34:00 Test Item Value Reference Range Interpretation Comments PT (test code = PT) 14.7 s 12.0-14.7 [place] [address]-12-06 04:34:00 Test Item Value Reference Range Interpretation Comments INR (test code = INR) 1.14 1 0.85-1.17 [place] 884130-12-06 04:34:00 Test Item Value Reference Range Interpretation Comments PTT (test code = PTT) 31.2 s 22.9-35.8 [place] 884130-12-06 04:34:00 Test Item Value Reference Range Interpretation Comments Segs (test code = Segs) 73.9 45.0-75.0 [place] 884130-12-06 04:34:00 Test Item Value Reference Range Interpretation Comments Lymphocytes (test code = Lymphocytes) 11.0 20.0-40.0 [place] 884130-12-06 04:34:00 Test Item Value Reference Range Interpretation Comments Monocytes (test code = Monocytes) 13.6 2.0-12.0 [place] [address]-12-06 04:34:00 Test Item Value Reference Range Interpretation Comments Eosinophils (test code = 0.7 See_Comment [A utomated message] The Eosinophils) system which ge nerated this result tra nsmitted reference range : <=4.0. The reference r christiano was not used to int erpret this result as normal/abnormal . [place] [address]-12-06 04:34:00 Test Item Value Reference Range Interpretation Comments Basophils (test code = 0.8 See_Comment [Aut omated message] The Basophils) system which ge nerated this result tra nsmitted reference range : <=1.0. The reference r christiano was not used to int erpret this result as normal/abnormal . [place] 884130-12-06 04:34:00 Test Item Value Reference Range Interpretation Comments Neutrophils # (test code = Neutrophils 7.2 1.5-8.1 #) [place] [address]-12-06 04:34:00 Test Item Value Reference Range Interpretation Comments Lymphocytes # (test code = Lymphocytes 1.1 1.0-5.5 #) [place] [address]-12-06 04:34:00 Test Item Value Reference Range Interpretation Comments Monocytes # (test code 1.3 See_Comment [Aut omated message] The = Monocytes #) system which generated this result tra nsmitted reference range : <=0.8. The reference r christiano was not used to int erpret this result as normal/abnormal . [place] [address]-12-06 04:34:00 Test Item Value Reference Range Interpretation Comments Eosinophils # (test code 0.1 See_Comment [A utomated message] The = Eosinophils #) system whic h generated this result tra nsmitted reference range : <=0.5. The reference r christiano was not used to int erpret this result as normal/abnormal . [id number] 04:34:00 Test Item Value Reference Range Interpretation Comments Basophils # (test code 0.1 See_Comment [Aut omated message] The = Basophils #) system which generated this result tra nsmitted reference range : <=0.2. The reference r christiano was not used to int erpret this result as normal/abnormal . [facility] [id number] 04:34:00 Test Item Value Reference Range Interpretation Comments Troponin-I (test code no gt See_Comment [Auto mated message] The = Troponin-I) system which g enerated this result transmit sheba reference range : <=0.40. The reference r christiano was not used to interpr et this result as edy l/abnormal. [facility] [id number] 04:34:00 Test Item Value Reference Range Interpretation Comments Glucose Lvl (test code = Glucose Lvl) 125 70-99 [facility] [id number] 04:34:00 Test Item Value Reference Range Interpretation Comments BUN (test code = BUN) 17 7-22 [facility] [id number] 04:34:00 Test Item Value Reference Range Interpretation Comments Creatinine Lvl (test code = Creatinine 1.51 0.50-1.40 Lvl) [facility] [id number] 04:34:00 Test Item Value Reference Range Interpretation Comments Sodium Lvl (test code = Sodium Lvl) 142 135-145 [facility] [id number] 04:34:00 Test Item Value Reference Range Interpretation Comments Potassium Lvl (test code = Potassium 4.0 3.5-5.1 Lvl) [facility] [id number] 04:34:00 Test Item Value Reference Range Interpretation Comments Chloride Lvl (test code = Chloride Lvl) 108 95-109 [facility] [id number] 04:34:00 Test Item Value Reference Range Interpretation Comments CO2 (test code = CO2) 30 24-32 [facility] [id number] 04:34:00 Test Item Value Reference Range Interpretation Comments Calcium Lvl (test code = Calcium Lvl) 7.8 8.5-10.5 [facility] [id number] 04:34:00 Test Item Value Reference Range Interpretation Comments AGAP (test code = AGAP) 8.0 10.0-20.0 [facility]2020-12-06 04:34:00 Test Item Value Reference Range Interpretation Comments eGFR (test code = eGFR) 33 [facility] CenterBmnzasrAOQNVEFFFD9835-04-09 04:34:00 Test Item Value Reference Range Interpretation Comments WBC X 10x3 (test code = WBC X 10x3) 9.7 3.7-10.4 [facility] CenterUeoweqiFHNKEYINIO0396-79-62 04:34:00 Test Item Value Reference Range Interpretation Comments RBC X 10x6 (test code = RBC X 10x6) 3.96 4.20-5.40 [facility] CenterXsoiappIKOUAMYDXH5004-20-62 04:34:00 Test Item Value Reference Range Interpretation Comments Hgb (test code = Hgb) 10.6 12.0-16.0 [facility] CenterXfvmcmwFLYAFCBSWR8008-08-64 04:34:00 Test Item Value Reference Range Interpretation Comments Hct (test code = Hct) 32.6 36.0-48.0 [facility] CenterOkizzlbLIOYXHUISI1736-56-88 04:34:00 Test Item Value Reference Range Interpretation Comments MCV (test code = MCV) 82.3 80.0-98.0 [facility] CenterCktwsyyLJTBJVZYLP2425-18-84 04:34:00 Test Item Value Reference Range Interpretation Comments MCH (test code = MCH) 26.6 pg 27.0-31.0 [facility] CenterErtkkdvQKXZZAWMTC5167-47-44 04:34:00 Test Item Value Reference Range Interpretation Comments MCHC (test code = MCHC) 32.4 32.0-36.0 [facility] CenterOgdkrngQYPZETLYDO4525-11-98 04:34:00 Test Item Value Reference Range Interpretation Comments RDW (test code = RDW) 16.8 11.5-14.5 [place] 884130-12-06 04:34:00 Test Item Value Reference Range Interpretation Comments Platelet (test code = Platelet) 178 133-450 [facility] CenterUslbfizIZWPTLETHR9922-03-80 04:34:00 Test Item Value Reference Range Interpretation Comments MPV (test code = MPV) 8.0 7.4-10.4 [facility] CenterAbqnezfPXESDKSXKJ8418-15-63 04:34:00 Test Item Value Reference Range Interpretation Comments PT (test code = PT) 14.7 s 12.0-14.7 [place] [address]-12-06 04:34:00 Test Item Value Reference Range Interpretation Comments INR (test code = INR) 1.14 1 0.85-1.17 [place] [address]-12-06 04:34:00 Test Item Value Reference Range Interpretation Comments PTT (test code = PTT) 31.2 s 22.9-35.8 [place] 884130-12-06 04:34:00 Test Item Value Reference Range Interpretation Comments Segs (test code = Segs) 73.9 45.0-75.0 [place] [address]-12-06 04:34:00 Test Item Value Reference Range Interpretation Comments Lymphocytes (test code = Lymphocytes) 11.0 20.0-40.0 [place] [address]-12-06 04:34:00 Test Item Value Reference Range Interpretation Comments Monocytes (test code = Monocytes) 13.6 2.0-12.0 [place] [address]-12-06 04:34:00 Test Item Value Reference Range Interpretation Comments Eosinophils (test code = 0.7 See_Comment [A utomated message] The Eosinophils) system which ge nerated this result tra nsmitted reference range : <=4.0. The reference r christiano was not used to int erpret this result as normal/abnormal . [place] 884130-12-06 04:34:00 Test Item Value Reference Range Interpretation Comments Basophils (test code = 0.8 See_Comment [Aut omated message] The Basophils) system which ge nerated this result tra nsmitted reference range : <=1.0. The reference r christiano was not used to int erpret this result as normal/abnormal . [place] 884130-12-06 04:34:00 Test Item Value Reference Range Interpretation Comments Neutrophils # (test code = Neutrophils 7.2 1.5-8.1 #) [place] 884130-12-06 04:34:00 Test Item Value Reference Range Interpretation Comments Lymphocytes # (test code = Lymphocytes 1.1 1.0-5.5 #) [place] 884130-12-06 04:34:00 Test Item Value Reference Range Interpretation Comments Monocytes # (test code 1.3 See_Comment [Aut omated message] The = Monocytes #) system which generated this result tra nsmitted reference range : <=0.8. The reference r christiano was not used to int erpret this result as normal/abnormal . [facility] HospitalCzdgvwiYVAZJDASSL5137-48-84 04:34:00 Test Item Value Reference Range Interpretation Comments Eosinophils # (test code 0.1 See_Comment [A utomated message] The = Eosinophils #) system whic h generated this result tra nsmitted reference range : <=0.5. The reference r christiano was not used to int erpret this result as normal/abnormal . [facility]NoxbljoGJNIHJVYDV2209-11-23 04:34:00 Test Item Value Reference Range Interpretation Comments Basophils # (test code 0.1 See_Comment [Aut omated message] The = Basophils #) system which generated this result tra nsmitted reference range : <=0.2. The reference r christiano was not used to int erpret this result as normal/abnormal . [facility] [id number] 04:34:00 Test Item Value Reference Range Interpretation Comments Troponin-I (test code no gt See_Comment [Auto mated message] The = Troponin-I) system which g enerated this result transmit sheba reference range : <=0.40. The reference r christiano was not used to interpr et this result as edy l/abnormal. [facility] [id number] 04:34:00 Test Item Value Reference Range Interpretation Comments Glucose Lvl (test code = Glucose Lvl) 125 70-99 [facility] [id number] 04:34:00 Test Item Value Reference Range Interpretation Comments BUN (test code = BUN) 17 7-22 [facility] [id number] 04:34:00 Test Item Value Reference Range Interpretation Comments Creatinine Lvl (test code = Creatinine 1.51 0.50-1.40 Lvl) [facility] [id number] 04:34:00 Test Item Value Reference Range Interpretation Comments Sodium Lvl (test code = Sodium Lvl) 142 135-145 [facility] [id number] 04:34:00 Test Item Value Reference Range Interpretation Comments Potassium Lvl (test code = Potassium 4.0 3.5-5.1 Lvl) [place] 608590-12-06 04:34:00 Test Item Value Reference Range Interpretation Comments Chloride Lvl (test code = Chloride Lvl) 108 95-109 [place] 608590-12-06 04:34:00 Test Item Value Reference Range Interpretation Comments CO2 (test code = CO2) 30 24-32 [place] 608590-12-06 04:34:00 Test Item Value Reference Range Interpretation Comments Calcium Lvl (test code = Calcium Lvl) 7.8 8.5-10.5 [place] 608590-12-06 04:34:00 Test Item Value Reference Range Interpretation Comments AGAP (test code = AGAP) 8.0 10.0-20.0 [place] 608590-12-06 04:34:00 Test Item Value Reference Range Interpretation Comments eGFR (test code = eGFR) 33 [place] 884130-12-06 04:34:00 Test Item Value Reference Range Interpretation Comments WBC X 10x3 (test code = WBC X 10x3) 9.7 3.7-10.4 [place] 884130-12-06 04:34:00 Test Item Value Reference Range Interpretation Comments RBC X 10x6 (test code = RBC X 10x6) 3.96 4.20-5.40 [place] [address]-12-06 04:34:00 Test Item Value Reference Range Interpretation Comments Hgb (test code = Hgb) 10.6 12.0-16.0 [place] [address]-12-06 04:34:00 Test Item Value Reference Range Interpretation Comments Hct (test code = Hct) 32.6 36.0-48.0 [place] [address]-12-06 04:34:00 Test Item Value Reference Range Interpretation Comments MCV (test code = MCV) 82.3 80.0-98.0 [place] [address]-12-06 04:34:00 Test Item Value Reference Range Interpretation Comments MCH (test code = MCH) 26.6 pg 27.0-31.0 [place] [address]-12-06 04:34:00 Test Item Value Reference Range Interpretation Comments MCHC (test code = MCHC) 32.4 32.0-36.0 [place] [address]-12-06 04:34:00 Test Item Value Reference Range Interpretation Comments RDW (test code = RDW) 16.8 11.5-14.5 [place] [address]-12-06 04:34:00 Test Item Value Reference Range Interpretation Comments Platelet (test code = Platelet) 178 133-450 [place] 884130-12-06 04:34:00 Test Item Value Reference Range Interpretation Comments MPV (test code = MPV) 8.0 7.4-10.4 [place] 884130-12-06 04:34:00 Test Item Value Reference Range Interpretation Comments PT (test code = PT) 14.7 s 12.0-14.7 [place] [address]-12-06 04:34:00 Test Item Value Reference Range Interpretation Comments INR (test code = INR) 1.14 1 0.85-1.17 [place] [address]-12-06 04:34:00 Test Item Value Reference Range Interpretation Comments PTT (test code = PTT) 31.2 s 22.9-35.8 [place] [address]-12-06 04:34:00 Test Item Value Reference Range Interpretation Comments Segs (test code = Segs) 73.9 45.0-75.0 [place] 884130-12-06 04:34:00 Test Item Value Reference Range Interpretation Comments Lymphocytes (test code = Lymphocytes) 11.0 20.0-40.0 [place] [address]-12-06 04:34:00 Test Item Value Reference Range Interpretation Comments Monocytes (test code = Monocytes) 13.6 2.0-12.0 [place] [address]-12-06 04:34:00 Test Item Value Reference Range Interpretation Comments Eosinophils (test code = 0.7 See_Comment [A utomated message] The Eosinophils) system which ge nerated this result tra nsmitted reference range : <=4.0. The reference r christiano was not used to int erpret this result as normal/abnormal . [place] [address]-12-06 04:34:00 Test Item Value Reference Range Interpretation Comments Basophils (test code = 0.8 See_Comment [Aut omated message] The Basophils) system which ge nerated this result tra nsmitted reference range : <=1.0. The reference r christiano was not used to int erpret this result as normal/abnormal . [facility] HospitalOsrzvbwWPEOQGMZTO9335-56-08 04:34:00 Test Item Value Reference Range Interpretation Comments Neutrophils # (test code = Neutrophils 7.2 1.5-8.1 #) [facility] CenterFnklyrcKYMTNTGMIZ4460-77-62 04:34:00 Test Item Value Reference Range Interpretation Comments Lymphocytes # (test code = Lymphocytes 1.1 1.0-5.5 #) [facility] CenterFravppySCYRUIZZOE2669-53-05 04:34:00 Test Item Value Reference Range Interpretation Comments Monocytes # (test code 1.3 See_Comment [Aut omated message] The = Monocytes #) system which generated this result tra nsmitted reference range : <=0.8. The reference r christiano was not used to int erpret this result as normal/abnormal . [facility] CenterRkxzqefASRUBRBJJL8127-74-45 04:34:00 Test Item Value Reference Range Interpretation Comments Eosinophils # (test code 0.1 See_Comment [A utomated message] The = Eosinophils #) system whic h generated this result tra nsmitted reference range : <=0.5. The reference r christiano was not used to int erpret this result as normal/abnormal . [facility] CenterBsrbiqeKNIJBATWTC5936-52-10 04:34:00 Test Item Value Reference Range Interpretation Comments Basophils # (test code 0.1 See_Comment [Aut omated message] The = Basophils #) system which generated this result tra nsmitted reference range : <=0.2. The reference r christiano was not used to int erpret this result as normal/abnormal . [facility] [id number] 04:34:00 Test Item Value Reference Range Interpretation Comments Troponin-I (test code no gt See_Comment [Auto mated message] The = Troponin-I) system which g enerated this result transmit sheba reference range : <=0.40. The reference r christiano was not used to interpr et this result as edy l/abnormal. [facility] [id number] 04:34:00 Test Item Value Reference Range Interpretation Comments Glucose Lvl (test code = Glucose Lvl) 125 70-99 [facility] [id number] 04:34:00 Test Item Value Reference Range Interpretation Comments BUN (test code = BUN) 17 7-22 [place] 608590-12-06 04:34:00 Test Item Value Reference Range Interpretation Comments Creatinine Lvl (test code = Creatinine 1.51 0.50-1.40 Lvl) [place] 608590-12-06 04:34:00 Test Item Value Reference Range Interpretation Comments Sodium Lvl (test code = Sodium Lvl) 142 135-145 [place] [address]-12-06 04:34:00 Test Item Value Reference Range Interpretation Comments Potassium Lvl (test code = Potassium 4.0 3.5-5.1 Lvl) [place] 608590-12-06 04:34:00 Test Item Value Reference Range Interpretation Comments Chloride Lvl (test code = Chloride Lvl) 108 95-109 [place] 608590-12-06 04:34:00 Test Item Value Reference Range Interpretation Comments CO2 (test code = CO2) 30 24-32 [place] 608590-12-06 04:34:00 Test Item Value Reference Range Interpretation Comments Calcium Lvl (test code = Calcium Lvl) 7.8 8.5-10.5 [place] 608590-12-06 04:34:00 Test Item Value Reference Range Interpretation Comments AGAP (test code = AGAP) 8.0 10.0-20.0 [place] 608590-12-06 04:34:00 Test Item Value Reference Range Interpretation Comments eGFR (test code = eGFR) 33 [place] [address]-12-06 04:34:00 Test Item Value Reference Range Interpretation Comments WBC X 10x3 (test code = WBC X 10x3) 9.7 3.7-10.4 [place] 884130-12-06 04:34:00 Test Item Value Reference Range Interpretation Comments RBC X 10x6 (test code = RBC X 10x6) 3.96 4.20-5.40 [place] 884130-12-06 04:34:00 Test Item Value Reference Range Interpretation Comments Hgb (test code = Hgb) 10.6 12.0-16.0 [place] [address]-12-06 04:34:00 Test Item Value Reference Range Interpretation Comments Hct (test code = Hct) 32.6 36.0-48.0 [place] 884130-12-06 04:34:00 Test Item Value Reference Range Interpretation Comments MCV (test code = MCV) 82.3 80.0-98.0 [place] 884130-12-06 04:34:00 Test Item Value Reference Range Interpretation Comments MCH (test code = MCH) 26.6 pg 27.0-31.0 [place] 884130-12-06 04:34:00 Test Item Value Reference Range Interpretation Comments MCHC (test code = MCHC) 32.4 32.0-36.0 [facility] CenterQoeojlnIRUHAXECCV8583-77-43 04:34:00 Test Item Value Reference Range Interpretation Comments RDW (test code = RDW) 16.8 11.5-14.5 [facility] CenterNyoisegJDLXJVNVSX2052-47-84 04:34:00 Test Item Value Reference Range Interpretation Comments Platelet (test code = Platelet) 178 133-450 [facility] CenterBqumaqkJWVNGWYEVN6324-45-09 04:34:00 Test Item Value Reference Range Interpretation Comments MPV (test code = MPV) 8.0 7.4-10.4 [facility] CenterOfnipfzFVIAUCKFAF1518-97-23 04:34:00 Test Item Value Reference Range Interpretation Comments PT (test code = PT) 14.7 s 12.0-14.7 [facility] CenterXxilfbgVBYYGXDMUV7167-98-41 04:34:00 Test Item Value Reference Range Interpretation Comments INR (test code = INR) 1.14 1 0.85-1.17 [place] 884130-12-06 04:34:00 Test Item Value Reference Range Interpretation Comments PTT (test code = PTT) 31.2 s 22.9-35.8 [place] 884130-12-06 04:34:00 Test Item Value Reference Range Interpretation Comments Segs (test code = Segs) 73.9 45.0-75.0 [place] [address]-12-06 04:34:00 Test Item Value Reference Range Interpretation Comments Lymphocytes (test code = Lymphocytes) 11.0 20.0-40.0 [place] [address]-12-06 04:34:00 Test Item Value Reference Range Interpretation Comments Monocytes (test code = Monocytes) 13.6 2.0-12.0 [place] [address]-12-06 04:34:00 Test Item Value Reference Range Interpretation Comments Eosinophils (test code = 0.7 See_Comment [A utomated message] The Eosinophils) system which ge nerated this result tra nsmitted reference range : <=4.0. The reference r christiano was not used to int erpret this result as normal/abnormal . [facility] CenterYjqibwoYBWGCSWGEH2648-87-59 04:34:00 Test Item Value Reference Range Interpretation Comments Basophils (test code = 0.8 See_Comment [Aut omated message] The Basophils) system which ge nerated this result tra nsmitted reference range : <=1.0. The reference r christiano was not used to int erpret this result as normal/abnormal . [facility] CenterRatndgwYDLPJSKDAH8635-28-12 04:34:00 Test Item Value Reference Range Interpretation Comments Neutrophils # (test code = Neutrophils 7.2 1.5-8.1 #) [facility] CenterWxwvzscNQHZQSCXQH5158-41-83 04:34:00 Test Item Value Reference Range Interpretation Comments Lymphocytes # (test code = Lymphocytes 1.1 1.0-5.5 #) [facility] CenterMlalxnfOQOCGMQRBM9318-73-54 04:34:00 Test Item Value Reference Range Interpretation Comments Monocytes # (test code 1.3 See_Comment [Aut omated message] The = Monocytes #) system which generated this result tra nsmitted reference range : <=0.8. The reference r christiano was not used to int erpret this result as normal/abnormal . [facility] CenterNjxijoaSFBZHMUKIX7171-24-98 04:34:00 Test Item Value Reference Range Interpretation Comments Eosinophils # (test code 0.1 See_Comment [A utomated message] The = Eosinophils #) system [facility] h generated this result tra nsmitted reference range : <=0.5. The reference r christiano was not used to int erpret this result as normal/abnormal . [facility] CenterPjchslaOQGSHZXCOY9046-04-26 04:34:00 Test Item Value Reference Range Interpretation Comments Basophils # (test code 0.1 See_Comment [Aut omated message] The = Basophils #) system which generated this result tra nsmitted reference range : <=0.2. The reference r christiano was not used to int erpret this result as normal/abnormal . [facility] [id number] 04:34:00 Test Item Value Reference Range Interpretation Comments Troponin-I (test code no gt See_Comment [Auto mated message] The = Troponin-I) system which g enerated this result transmit sheba reference range : <=0.40. The reference r christiano was not used to interpr et this result as edy l/abnormal. [facility]2020-12-06 04:34:00 Test Item Value Reference Range Interpretation Comments Glucose Lvl (test code = Glucose Lvl) 125 70-99 [place] 608590-12-06 04:34:00 Test Item Value Reference Range Interpretation Comments BUN (test code = BUN) 17 7-22 [place] [address]-12-06 04:34:00 Test Item Value Reference Range Interpretation Comments Creatinine Lvl (test code = Creatinine 1.51 0.50-1.40 Lvl) [place] 608590-12-06 04:34:00 Test Item Value Reference Range Interpretation Comments Sodium Lvl (test code = Sodium Lvl) 142 135-145 [place] 608590-12-06 04:34:00 Test Item Value Reference Range Interpretation Comments Potassium Lvl (test code = Potassium 4.0 3.5-5.1 Lvl) [place] 608590-12-06 04:34:00 Test Item Value Reference Range Interpretation Comments Chloride Lvl (test code = Chloride Lvl) 108 95-109 [place] 608590-12-06 04:34:00 Test Item Value Reference Range Interpretation Comments CO2 (test code = CO2) 30 24-32 [place] 608590-12-06 04:34:00 Test Item Value Reference Range Interpretation Comments Calcium Lvl (test code = Calcium Lvl) 7.8 8.5-10.5 [place] 608590-12-06 04:34:00 Test Item Value Reference Range Interpretation Comments AGAP (test code = AGAP) 8.0 10.0-20.0 [place] 608590-12-06 04:34:00 Test Item Value Reference Range Interpretation Comments eGFR (test code = eGFR) 33 [place] 884130-12-06 04:34:00 Test Item Value Reference Range Interpretation Comments WBC X 10x3 (test code = WBC X 10x3) 9.7 3.7-10.4 [place] 884130-12-06 04:34:00 Test Item Value Reference Range Interpretation Comments RBC X 10x6 (test code = RBC X 10x6) 3.96 4.20-5.40 [facility] CenterDcdvvllOKGBZSVZKV7392-15-01 04:34:00 Test Item Value Reference Range Interpretation Comments Hgb (test code = Hgb) 10.6 12.0-16.0 [place] 884130-12-06 04:34:00 Test Item Value Reference Range Interpretation Comments Hct (test code = Hct) 32.6 36.0-48.0 [facility] CenterVafnpavFRABWBHJIQ2188-68-32 04:34:00 Test Item Value Reference Range Interpretation Comments MCV (test code = MCV) 82.3 80.0-98.0 [facility] CenterFrosbtpBKKVVJFUGS5123-34-56 04:34:00 Test Item Value Reference Range Interpretation Comments MCH (test code = MCH) 26.6 pg 27.0-31.0 [facility] CenterPcuhsvfVRYUJTNAYX4794-42-27 04:34:00 Test Item Value Reference Range Interpretation Comments MCHC (test code = MCHC) 32.4 32.0-36.0 [facility] CenterVcnrkliBVYFFSOPJU5845-11-84 04:34:00 Test Item Value Reference Range Interpretation Comments RDW (test code = RDW) 16.8 11.5-14.5 [facility] CenterJghlxmgTSQWYNOZKC6135-25-23 04:34:00 Test Item Value Reference Range Interpretation Comments Platelet (test code = Platelet) 178 133-450 [facility] CenterUlempadQUUUPWKJQO5176-29-94 04:34:00 Test Item Value Reference Range Interpretation Comments MPV (test code = MPV) 8.0 7.4-10.4 [place] 884130-12-06 04:34:00 Test Item Value Reference Range Interpretation Comments PT (test code = PT) 14.7 s 12.0-14.7 [place] 884130-12-06 04:34:00 Test Item Value Reference Range Interpretation Comments INR (test code = INR) 1.14 1 0.85-1.17 [place] 884130-12-06 04:34:00 Test Item Value Reference Range Interpretation Comments PTT (test code = PTT) 31.2 s 22.9-35.8 [place] 884130-12-06 04:34:00 Test Item Value Reference Range Interpretation Comments Segs (test code = Segs) 73.9 45.0-75.0 [place] [address]-12-06 04:34:00 Test Item Value Reference Range Interpretation Comments Lymphocytes (test code = Lymphocytes) 11.0 20.0-40.0 [place] [address]-12-06 04:34:00 Test Item Value Reference Range Interpretation Comments Monocytes (test code = Monocytes) 13.6 2.0-12.0 [place] [address]-12-06 04:34:00 Test Item Value Reference Range Interpretation Comments Eosinophils (test code = 0.7 See_Comment [A utomated message] The Eosinophils) system which ge nerated this result tra nsmitted reference range : <=4.0. The reference r christiano was not used to int erpret this result as normal/abnormal . [place] [address]-12-06 04:34:00 Test Item Value Reference Range Interpretation Comments Basophils (test code = 0.8 See_Comment [Aut omated message] The Basophils) system which ge nerated this result tra nsmitted reference range : <=1.0. The reference r christiano was not used to int erpret this result as normal/abnormal . [place] 884130-12-06 04:34:00 Test Item Value Reference Range Interpretation Comments Neutrophils # (test code = Neutrophils 7.2 1.5-8.1 #) [place] [address]-12-06 04:34:00 Test Item Value Reference Range Interpretation Comments Lymphocytes # (test code = Lymphocytes 1.1 1.0-5.5 #) [place] [address]-12-06 04:34:00 Test Item Value Reference Range Interpretation Comments Monocytes # (test code 1.3 See_Comment [Aut omated message] The = Monocytes #) system which generated this result tra nsmitted reference range : <=0.8. The reference r christiano was not used to int erpret this result as normal/abnormal . [place] [address]-12-06 04:34:00 Test Item Value Reference Range Interpretation Comments Eosinophils # (test code 0.1 See_Comment [A utomated message] The = Eosinophils #) system wh h generated this result tra nsmitted reference range : <=0.5. The reference r christiano was not used to int erpret this result as normal/abnormal . [id number] 04:34:00 Test Item Value Reference Range Interpretation Comments Basophils # (test code 0.1 See_Comment [Aut omated message] The = Basophils #) system which generated this result tra nsmitted reference range : <=0.2. The reference r christiano was not used to int erpret this result as normal/abnormal . [facility] [id number] 04:34:00 Test Item Value Reference Range Interpretation Comments Troponin-I (test code no gt See_Comment [Auto mated message] The = Troponin-I) system which g enerated this result transmit sheba reference range : <=0.40. The reference r christiano was not used to interpr et this result as edy l/abnormal. [facility] [id number] 04:34:00 Test Item Value Reference Range Interpretation Comments Glucose Lvl (test code = Glucose Lvl) 125 70-99 [facility] [id number] 04:34:00 Test Item Value Reference Range Interpretation Comments BUN (test code = BUN) 17 7-22 [facility] [id number] 04:34:00 Test Item Value Reference Range Interpretation Comments Creatinine Lvl (test code = Creatinine 1.51 0.50-1.40 Lvl) [facility] [id number] 04:34:00 Test Item Value Reference Range Interpretation Comments Sodium Lvl (test code = Sodium Lvl) 142 135-145 [facility] [id number] 04:34:00 Test Item Value Reference Range Interpretation Comments Potassium Lvl (test code = Potassium 4.0 3.5-5.1 Lvl) [facility] [id number] 04:34:00 Test Item Value Reference Range Interpretation Comments Chloride Lvl (test code = Chloride Lvl) 108 95-109 [facility] [id number] 04:34:00 Test Item Value Reference Range Interpretation Comments CO2 (test code = CO2) 30 24-32 [facility] [id number] 04:34:00 Test Item Value Reference Range Interpretation Comments Calcium Lvl (test code = Calcium Lvl) 7.8 8.5-10.5 [id number] 04:34:00 Test Item Value Reference Range Interpretation Comments AGAP (test code = AGAP) 8.0 10.0-20.0 [facility]2020-12-06 04:34:00 Test Item Value Reference Range Interpretation Comments eGFR (test code = eGFR) 33 [place] [address]-12-06 04:34:00 Test Item Value Reference Range Interpretation Comments WBC X 10x3 (test code = WBC X 10x3) 9.7 3.7-10.4 [place] 884130-12-06 04:34:00 Test Item Value Reference Range Interpretation Comments RBC X 10x6 (test code = RBC X 10x6) 3.96 4.20-5.40 [place] [address]-12-06 04:34:00 Test Item Value Reference Range Interpretation Comments Hgb (test code = Hgb) 10.6 12.0-16.0 [place] [address]-12-06 04:34:00 Test Item Value Reference Range Interpretation Comments Hct (test code = Hct) 32.6 36.0-48.0 [place] 884130-12-06 04:34:00 Test Item Value Reference Range Interpretation Comments MCV (test code = MCV) 82.3 80.0-98.0 [place] [address]-12-06 04:34:00 Test Item Value Reference Range Interpretation Comments MCH (test code = MCH) 26.6 pg 27.0-31.0 [place] [address]-12-06 04:34:00 Test Item Value Reference Range Interpretation Comments MCHC (test code = MCHC) 32.4 32.0-36.0 [place] [address]-12-06 04:34:00 Test Item Value Reference Range Interpretation Comments RDW (test code = RDW) 16.8 11.5-14.5 [place] [address]-12-06 04:34:00 Test Item Value Reference Range Interpretation Comments Platelet (test code = Platelet) 178 133-450 [place] 884130-12-06 04:34:00 Test Item Value Reference Range Interpretation Comments MPV (test code = MPV) 8.0 7.4-10.4 [place] [address]-12-06 04:34:00 Test Item Value Reference Range Interpretation Comments PT (test code = PT) 14.7 s 12.0-14.7 [place] 884130-12-06 04:34:00 Test Item Value Reference Range Interpretation Comments INR (test code = INR) 1.14 1 0.85-1.17 [place] 884130-12-06 04:34:00 Test Item Value Reference Range Interpretation Comments PTT (test code = PTT) 31.2 s 22.9-35.8 [place] [address]-12-06 04:34:00 Test Item Value Reference Range Interpretation Comments Segs (test code = Segs) 73.9 45.0-75.0 [place] [address]-12-06 04:34:00 Test Item Value Reference Range Interpretation Comments Lymphocytes (test code = Lymphocytes) 11.0 20.0-40.0 [place] [address]-12-06 04:34:00 Test Item Value Reference Range Interpretation Comments Monocytes (test code = Monocytes) 13.6 2.0-12.0 [place] 884130-12-06 04:34:00 Test Item Value Reference Range Interpretation Comments Eosinophils (test code = 0.7 See_Comment [A utomated message] The Eosinophils) system which ge nerated this result tra nsmitted reference range : <=4.0. The reference r christiano was not used to int erpret this result as normal/abnormal . [place] 884130-12-06 04:34:00 Test Item Value Reference Range Interpretation Comments Basophils (test code = 0.8 See_Comment [Aut omated message] The Basophils) system which ge nerated this result tra nsmitted reference range : <=1.0. The reference r christiano was not used to int erpret this result as normal/abnormal . [place] 884130-12-06 04:34:00 Test Item Value Reference Range Interpretation Comments Neutrophils # (test code = Neutrophils 7.2 1.5-8.1 #) [place] 884130-12-06 04:34:00 Test Item Value Reference Range Interpretation Comments Lymphocytes # (test code = Lymphocytes 1.1 1.0-5.5 #) [place] 884130-12-06 04:34:00 Test Item Value Reference Range Interpretation Comments Monocytes # (test code 1.3 See_Comment [Aut omated message] The = Monocytes #) system which generated this result tra nsmitted reference range : <=0.8. The reference r christiano was not used to int erpret this result as normal/abnormal . [facility]ZwnzzcmGFOOXAHHAC8622-06-39 04:34:00 Test Item Value Reference Range Interpretation Comments Eosinophils # (test code 0.1 See_Comment [A utomated message] The = Eosinophils #) system whic h generated this result tra nsmitted reference range : <=0.5. The reference r christiano was not used to int erpret this result as normal/abnormal . [facility] [id number] 04:34:00 Test Item Value Reference Range Interpretation Comments Basophils # (test code 0.1 See_Comment [Aut omated message] The = Basophils #) system which generated this result tra nsmitted reference range : <=0.2. The reference r christiano was not used to int erpret this result as normal/abnormal . [facility] [id number] 04:34:00 Test Item Value Reference Range Interpretation Comments Troponin-I (test code no gt See_Comment [Auto mated message] The = Troponin-I) system which g enerated this result transmit sheba reference range : <=0.40. The reference r christiano was not used to interpr et this result as edy l/abnormal. [facility] [id number] 04:34:00 Test Item Value Reference Range Interpretation Comments Glucose Lvl (test code = Glucose Lvl) 125 70-99 [facility] [id number] 04:34:00 Test Item Value Reference Range Interpretation Comments BUN (test code = BUN) 17 7-22 [facility] [id number] 04:34:00 Test Item Value Reference Range Interpretation Comments Creatinine Lvl (test code = Creatinine 1.51 0.50-1.40 Lvl) [facility] [id number] 04:34:00 Test Item Value Reference Range Interpretation Comments Sodium Lvl (test code = Sodium Lvl) 142 135-145 [facility] [id number] 04:34:00 Test Item Value Reference Range Interpretation Comments Potassium Lvl (test code = Potassium 4.0 3.5-5.1 Lvl) [place] 608590-12-06 04:34:00 Test Item Value Reference Range Interpretation Comments Chloride Lvl (test code = Chloride Lvl) 108 95-109 [place] 608590-12-06 04:34:00 Test Item Value Reference Range Interpretation Comments CO2 (test code = CO2) 30 24-32 [place] [address]-12-06 04:34:00 Test Item Value Reference Range Interpretation Comments Calcium Lvl (test code = Calcium Lvl) 7.8 8.5-10.5 [place] 608590-12-06 04:34:00 Test Item Value Reference Range Interpretation Comments AGAP (test code = AGAP) 8.0 10.0-20.0 [address]12-06 04:34:00 Test Item Value Reference Range Interpretation Comments eGFR (test code = eGFR) 33 [place] [address]-12-06 04:34:00 Test Item Value Reference Range Interpretation Comments WBC X 10x3 (test code = WBC X 10x3) 9.7 3.7-10.4 [place] [address]-12-06 04:34:00 Test Item Value Reference Range Interpretation Comments RBC X 10x6 (test code = RBC X 10x6) 3.96 4.20-5.40 [place] [address]-12-06 04:34:00 Test Item Value Reference Range Interpretation Comments Hgb (test code = Hgb) 10.6 12.0-16.0 [place] [address]-12-06 04:34:00 Test Item Value Reference Range Interpretation Comments Hct (test code = Hct) 32.6 36.0-48.0 [place] [address]-12-06 04:34:00 Test Item Value Reference Range Interpretation Comments MCV (test code = MCV) 82.3 80.0-98.0 [place] [address]-12-06 04:34:00 Test Item Value Reference Range Interpretation Comments MCH (test code = MCH) 26.6 pg 27.0-31.0 [place] [address]-12-06 04:34:00 Test Item Value Reference Range Interpretation Comments MCHC (test code = MCHC) 32.4 32.0-36.0 [place] [address]-12-06 04:34:00 Test Item Value Reference Range Interpretation Comments RDW (test code = RDW) 16.8 11.5-14.5 [place] [address]-12-06 04:34:00 Test Item Value Reference Range Interpretation Comments Platelet (test code = Platelet) 178 133-450 [place] [address]-12-06 04:34:00 Test Item Value Reference Range Interpretation Comments MPV (test code = MPV) 8.0 7.4-10.4 [place] [address]-12-06 04:34:00 Test Item Value Reference Range Interpretation Comments PT (test code = PT) 14.7 s 12.0-14.7 [place] [address]-12-06 04:34:00 Test Item Value Reference Range Interpretation Comments INR (test code = INR) 1.14 1 0.85-1.17 [place] [address]-12-06 04:34:00 Test Item Value Reference Range Interpretation Comments PTT (test code = PTT) 31.2 s 22.9-35.8 [place] [address]-12-06 04:34:00 Test Item Value Reference Range Interpretation Comments Segs (test code = Segs) 73.9 45.0-75.0 [place] [address]-12-06 04:34:00 Test Item Value Reference Range Interpretation Comments Lymphocytes (test code = Lymphocytes) 11.0 20.0-40.0 [place] [address]-12-06 04:34:00 Test Item Value Reference Range Interpretation Comments Monocytes (test code = Monocytes) 13.6 2.0-12.0 [place] [address]-12-06 04:34:00 Test Item Value Reference Range Interpretation Comments Eosinophils (test code = 0.7 See_Comment [A utomated message] The Eosinophils) system which ge nerated this result tra nsmitted reference range : <=4.0. The reference r christiano was not used to int erpret this result as normal/abnormal . [place] [address]-12-06 04:34:00 Test Item Value Reference Range Interpretation Comments Basophils (test code = 0.8 See_Comment [Aut omated message] The Basophils) system which ge nerated this result tra nsmitted reference range : <=1.0. The reference r christiano was not used to int erpret this result as normal/abnormal . [facility] HospitalQdodicxMLYDTFERFA8952-61-10 04:34:00 Test Item Value Reference Range Interpretation Comments Neutrophils # (test code = Neutrophils 7.2 1.5-8.1 #) [facility] CenterGbexommNCAEAFGUMP6300-07-63 04:34:00 Test Item Value Reference Range Interpretation Comments Lymphocytes # (test code = Lymphocytes 1.1 1.0-5.5 #) [place] 884130-12-06 04:34:00 Test Item Value Reference Range Interpretation Comments Monocytes # (test code 1.3 See_Comment [Aut omated message] The = Monocytes #) system which generated this result tra nsmitted reference range : <=0.8. The reference r christiano was not used to int erpret this result as normal/abnormal . [facility] CenterKbxwjhrQXVGLUKNBN1261-12-97 04:34:00 Test Item Value Reference Range Interpretation Comments Eosinophils # (test code 0.1 See_Comment [A utomated message] The = Eosinophils #) system whic h generated this result tra nsmitted reference range : <=0.5. The reference r christiano was not used to int erpret this result as normal/abnormal . [facility] CenterWecgtysIDOIHTBDQK9939-74-34 04:34:00 Test Item Value Reference Range Interpretation Comments Basophils # (test code 0.1 See_Comment [Aut omated message] The = Basophils #) system which generated this result tra nsmitted reference range : <=0.2. The reference r christiano was not used to int erpret this result as normal/abnormal . [facility] [id number] 04:34:00 Test Item Value Reference Range Interpretation Comments Troponin-I (test code no gt See_Comment [Auto mated message] The = Troponin-I) system which g enerated this result transmit sheba reference range : <=0.40. The reference r christiano was not used to interpr et this result as edy l/abnormal. [facility] [id number] 04:34:00 Test Item Value Reference Range Interpretation Comments Glucose Lvl (test code = Glucose Lvl) 125 70-99 [facility] [id number] 04:34:00 Test Item Value Reference Range Interpretation Comments BUN (test code = BUN) 17 7-22 [place] 608590-12-06 04:34:00 Test Item Value Reference Range Interpretation Comments Creatinine Lvl (test code = Creatinine 1.51 0.50-1.40 Lvl) [place] 608590-12-06 04:34:00 Test Item Value Reference Range Interpretation Comments Sodium Lvl (test code = Sodium Lvl) 142 135-145 [place] 608590-12-06 04:34:00 Test Item Value Reference Range Interpretation Comments Potassium Lvl (test code = Potassium 4.0 3.5-5.1 Lvl) [place] 608590-12-06 04:34:00 Test Item Value Reference Range Interpretation Comments Chloride Lvl (test code = Chloride Lvl) 108 95-109 [place] 608590-12-06 04:34:00 Test Item Value Reference Range Interpretation Comments CO2 (test code = CO2) 30 24-32 [place] 608590-12-06 04:34:00 Test Item Value Reference Range Interpretation Comments Calcium Lvl (test code = Calcium Lvl) 7.8 8.5-10.5 [place] 608590-12-06 04:34:00 Test Item Value Reference Range Interpretation Comments AGAP (test code = AGAP) 8.0 10.0-20.0 [place] 608590-12-06 04:34:00 Test Item Value Reference Range Interpretation Comments eGFR (test code = eGFR) 33 [place] 884130-12-06 04:34:00 Test Item Value Reference Range Interpretation Comments WBC X 10x3 (test code = WBC X 10x3) 9.7 3.7-10.4 [place] 884130-12-06 04:34:00 Test Item Value Reference Range Interpretation Comments RBC X 10x6 (test code = RBC X 10x6) 3.96 4.20-5.40 [place] 884130-12-06 04:34:00 Test Item Value Reference Range Interpretation Comments Hgb (test code = Hgb) 10.6 12.0-16.0 [place] [address]-12-06 04:34:00 Test Item Value Reference Range Interpretation Comments Hct (test code = Hct) 32.6 36.0-48.0 [place] 884130-12-06 04:34:00 Test Item Value Reference Range Interpretation Comments MCV (test code = MCV) 82.3 80.0-98.0 [facility] CenterYadozgqCPFPMLGWRY8546-18-01 04:34:00 Test Item Value Reference Range Interpretation Comments MCH (test code = MCH) 26.6 pg 27.0-31.0 [facility] CenterVuumxqfCTJGKNFYMI3792-69-78 04:34:00 Test Item Value Reference Range Interpretation Comments MCHC (test code = MCHC) 32.4 32.0-36.0 [facility] CenterCpeomruJHVBZTUHEG7057-80-62 04:34:00 Test Item Value Reference Range Interpretation Comments RDW (test code = RDW) 16.8 11.5-14.5 [facility] CenterMxrfyjvVSFBSDURNG2532-68-27 04:34:00 Test Item Value Reference Range Interpretation Comments Platelet (test code = Platelet) 178 133-450 [facility] CenterLyfpltxBUGEICTSUR0213-54-52 04:34:00 Test Item Value Reference Range Interpretation Comments MPV (test code = MPV) 8.0 7.4-10.4 [place] 884130-12-06 04:34:00 Test Item Value Reference Range Interpretation Comments PT (test code = PT) 14.7 s 12.0-14.7 [facility] CenterCeuqrszBBOSFBBKKZ8849-65-96 04:34:00 Test Item Value Reference Range Interpretation Comments INR (test code = INR) 1.14 1 0.85-1.17 [place] 884130-12-06 04:34:00 Test Item Value Reference Range Interpretation Comments PTT (test code = PTT) 31.2 s 22.9-35.8 [place] [address]-12-06 04:34:00 Test Item Value Reference Range Interpretation Comments Segs (test code = Segs) 73.9 45.0-75.0 [place] [address]-12-06 04:34:00 Test Item Value Reference Range Interpretation Comments Lymphocytes (test code = Lymphocytes) 11.0 20.0-40.0 [place] 884130-12-06 04:34:00 Test Item Value Reference Range Interpretation Comments Monocytes (test code = Monocytes) 13.6 2.0-12.0 [place] 884130-12-06 04:34:00 Test Item Value Reference Range Interpretation Comments Eosinophils (test code = 0.7 See_Comment [A utomated message] The Eosinophils) system which ge nerated this result tra nsmitted reference range : <=4.0. The reference r christiano was not used to int erpret this result as normal/abnormal . [facility] CenterVqrvovjOLQNFHRXHF9478-50-89 04:34:00 Test Item Value Reference Range Interpretation Comments Basophils (test code = 0.8 See_Comment [Aut omated message] The Basophils) system which ge nerated this result tra nsmitted reference range : <=1.0. The reference r christiano was not used to int erpret this result as normal/abnormal . [facility] CenterWyydfptMATLVKWMFJ4571-00-37 04:34:00 Test Item Value Reference Range Interpretation Comments Neutrophils # (test code = Neutrophils 7.2 1.5-8.1 #) [facility] CenterSdpftmkIAAZHSLYDA6333-31-77 04:34:00 Test Item Value Reference Range Interpretation Comments Lymphocytes # (test code = Lymphocytes 1.1 1.0-5.5 #) [facility] CenterOmdchjfXVPOKNGQLH7203-68-23 04:34:00 Test Item Value Reference Range Interpretation Comments Monocytes # (test code 1.3 See_Comment [Aut omated message] The = Monocytes #) system which generated this result tra nsmitted reference range : <=0.8. The reference r christiano was not used to int erpret this result as normal/abnormal . [facility] CenterRpzzqydWUHUZXRDPL8084-26-33 04:34:00 Test Item Value Reference Range Interpretation Comments Eosinophils # (test code 0.1 See_Comment [A utomated message] The = Eosinophils #) system whic h generated this result tra nsmitted reference range : <=0.5. The reference r christiano was not used to int erpret this result as normal/abnormal . [facility] CenterVffoeftTUBFPTZJRO1001-95-18 04:34:00 Test Item Value Reference Range Interpretation Comments Basophils # (test code 0.1 See_Comment [Aut omated message] The = Basophils #) system which generated this result tra nsmitted reference range : <=0.2. The reference r christiano was not used to int erpret this result as normal/abnormal . [facility] [id number] 04:34:00 Test Item Value Reference Range Interpretation Comments Troponin-I (test code no gt See_Comment [Auto mated message] The = Troponin-I) system which g enerated this result transmit sheba reference range : <=0.40. The reference r christiano was not used to interpr et this result as edy l/abnormal. [facility]2020-12-06 04:34:00 Test Item Value Reference Range Interpretation Comments Glucose Lvl (test code = Glucose Lvl) 125 70-99 [place] 608590-12-06 04:34:00 Test Item Value Reference Range Interpretation Comments BUN (test code = BUN) 17 7-22 [place] [address]-12-06 04:34:00 Test Item Value Reference Range Interpretation Comments Creatinine Lvl (test code = Creatinine 1.51 0.50-1.40 Lvl) [place] 608590-12-06 04:34:00 Test Item Value Reference Range Interpretation Comments Sodium Lvl (test code = Sodium Lvl) 142 135-145 [place] 608590-12-06 04:34:00 Test Item Value Reference Range Interpretation Comments Potassium Lvl (test code = Potassium 4.0 3.5-5.1 Lvl) [place] 608590-12-06 04:34:00 Test Item Value Reference Range Interpretation Comments Chloride Lvl (test code = Chloride Lvl) 108 95-109 [place] 608590-12-06 04:34:00 Test Item Value Reference Range Interpretation Comments CO2 (test code = CO2) 30 24-32 [place] 608590-12-06 04:34:00 Test Item Value Reference Range Interpretation Comments Calcium Lvl (test code = Calcium Lvl) 7.8 8.5-10.5 [place] 608590-12-06 04:34:00 Test Item Value Reference Range Interpretation Comments AGAP (test code = AGAP) 8.0 10.0-20.0 [place] 608590-12-06 04:34:00 Test Item Value Reference Range Interpretation Comments eGFR (test code = eGFR) 33 [place] [address]-12-06 04:34:00 Test Item Value Reference Range Interpretation Comments WBC X 10x3 (test code = WBC X 10x3) 9.7 3.7-10.4 [place] [address]-12-06 04:34:00 Test Item Value Reference Range Interpretation Comments RBC X 10x6 (test code = RBC X 10x6) 3.96 4.20-5.40 [place] [address]-12-06 04:34:00 Test Item Value Reference Range Interpretation Comments Hgb (test code = Hgb) 10.6 12.0-16.0 [place] [address]-12-06 04:34:00 Test Item Value Reference Range Interpretation Comments Hct (test code = Hct) 32.6 36.0-48.0 [facility] CenterXhcmadlAXQWCMFSBI8590-80-99 04:34:00 Test Item Value Reference Range Interpretation Comments MCV (test code = MCV) 82.3 80.0-98.0 [place] 884130-12-06 04:34:00 Test Item Value Reference Range Interpretation Comments MCH (test code = MCH) 26.6 pg 27.0-31.0 [place] [address]-12-06 04:34:00 Test Item Value Reference Range Interpretation Comments MCHC (test code = MCHC) 32.4 32.0-36.0 [place] 884130-12-06 04:34:00 Test Item Value Reference Range Interpretation Comments RDW (test code = RDW) 16.8 11.5-14.5 [place] 884130-12-06 04:34:00 Test Item Value Reference Range Interpretation Comments Platelet (test code = Platelet) 178 133-450 [facility] CenterTgdqdqmGMVURSHNEG8204-93-10 04:34:00 Test Item Value Reference Range Interpretation Comments MPV (test code = MPV) 8.0 7.4-10.4 [place] [address]-12-06 04:34:00 Test Item Value Reference Range Interpretation Comments PT (test code = PT) 14.7 s 12.0-14.7 [place] [address]-12-06 04:34:00 Test Item Value Reference Range Interpretation Comments INR (test code = INR) 1.14 1 0.85-1.17 [place] [address]-12-06 04:34:00 Test Item Value Reference Range Interpretation Comments PTT (test code = PTT) 31.2 s 22.9-35.8 [place] [address]-12-06 04:34:00 Test Item Value Reference Range Interpretation Comments Segs (test code = Segs) 73.9 45.0-75.0 [place] 884130-12-06 04:34:00 Test Item Value Reference Range Interpretation Comments Lymphocytes (test code = Lymphocytes) 11.0 20.0-40.0 [place] [address]-12-06 04:34:00 Test Item Value Reference Range Interpretation Comments Monocytes (test code = Monocytes) 13.6 2.0-12.0 [place] [address]-12-06 04:34:00 Test Item Value Reference Range Interpretation Comments Eosinophils (test code = 0.7 See_Comment [A utomated message] The Eosinophils) system which ge nerated this result tra nsmitted reference range : <=4.0. The reference r christiano was not used to int erpret this result as normal/abnormal . [place] [id number] 04:34:00 Test Item Value Reference Range Interpretation Comments Basophils (test code = 0.8 See_Comment [Aut omated message] The Basophils) system which ge nerated this result tra nsmitted reference range : <=1.0. The reference r christiano was not used to int erpret this result as normal/abnormal . [id number] 04:34:00 Test Item Value Reference Range Interpretation Comments Neutrophils # (test code = Neutrophils 7.2 1.5-8.1 #) [place] [id number] 04:34:00 Test Item Value Reference Range Interpretation Comments Lymphocytes # (test code = Lymphocytes 1.1 1.0-5.5 #) [place] [id number] 04:34:00 Test Item Value Reference Range Interpretation Comments Monocytes # (test code 1.3 See_Comment [Aut omated message] The = Monocytes #) system which generated this result tra nsmitted reference range : <=0.8. The reference r christiano was not used to int erpret this result as normal/abnormal . [place] [id number] 04:34:00 Test Item Value Reference Range Interpretation Comments Eosinophils # (test code 0.1 See_Comment [A utomated message] The = Eosinophils #) system whic h generated this result tra nsmitted reference range : <=0.5. The reference r christiano was not used to int erpret this result as normal/abnormal . [id number] 04:34:00 Test Item Value Reference Range Interpretation Comments Basophils # (test code 0.1 See_Comment [Aut omated message] The = Basophils #) system which generated this result tra nsmitted reference range : <=0.2. The reference r christiano was not used to int erpret this result as normal/abnormal . [facility] SHOULDER 2+ VW [id number] 17:54:27 Comminuted distal clavicle fracture. EXAM: XR SHOULDER 2+ VW RIGHT HISTORY: shoulder pain COMPARISON: None. FINDINGS: A comminuted fracture of the distal clavicle is seen. There is resultantmild widening of the acromioclavicular joint. Alignment is maintained atthe glenohumeral joint which exhibits osteoarthritic changes manifested byjoint space narrowing and osteophytosis. Osteopenia is suggested.At herosclerotic calcifications are present in the aortic arch. [facility], Radiant Results [facility] User - 06/28/2020 12:55 PM CDTEXAM:XR SHOULDER 2+ VW RIGHTHISTORY:shoulder pain COMPARISON:None.FINDINGS: A comminuted fracture of the distal clavicle is seen. There is resultantmild widening of the acromioclavicular joint. Alignment is maintained atthe glenohumeral joint which exhibits osteoarthritic changes manifested byjoint space narrowing and osteophytosis. Osteopenia is suggested.Atherosclerotic calcifications are present in the aortic arch.IMPRESSIONComminuted distal clavicle fracture. [facility] [id number] 17:53:09 No acute bony abnormality. EXAM: XR FOREARM 2 VW RIGHT HISTORY: right arm pain COMPARISON: None. FINDINGS: Osteopenia is noted. 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 Mild osteoarthritic changes are present at theelbow. No acute fracture or dislocation is seen. [facility] 12:54 PM CDTEXAM:XR FOREARM 2 VW RIGHTHISTORY:right arm pain COMPARISON:None.FINDINGS: Osteopenia is noted. 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 Mild osteoarthritic changes are present at theelbow. No acute fracture or dislocation is seen.IMPRESSIONNo acute bony abnormality.[facility] Notes Date/Time Note Provider Source 2023-03-01 17:28:00-00:00 [id number] [address] [place] [address] PATIENT NAME: RADHA CARPENTER ADMIT DATE: ACCOUNT NO: [id number] ROOM NO: AGE: 82 REPORT TYPE: ECHOCARDIOGRAM SEX: F ADMITTING PHYSICIAN: ATTENDING PHYSICIAN:Anurag Sanderson MD *[facility]* [address] [place] [address] Transthoracic Echocardiogram Patient: Radha Carpenter Study Date: 02/14/2023 BP: Location: [facility] URN: [id number] : 1940 Age: 82 Height: 0 in / 0 cm Gender: F Weight: 0 l b / 0 kg BMI/BSA: / *Ordering Physician: * Anurag Sanderson MD *Interpreting Physician: * Anurag Sanderson MD *Hogshead Opener: * Deanna Garza Indications: Hypertensive heart disease without heart failure. Study data: Transthoracic echocardiogram. Proced ure: Transthoracic echocardiography was performed. Image quality wa s adequate. Complete 2D, complete spectral Doppler, and color Doppler . Findings Left ventricle: The cavity size is normal. Wall thickness is mildly increased. Systolic function is normal. The do mated ejection fraction is 60-64%. Wall motion is normal; there are no r egional wall motion abnormalities. Left ventricular diastolic functi on parameters are normal. Right ventricle: The cavity size is normal. Syst olic function is normal. Left atrium: The atrium is normal in size. Right atrium: The atrium is normal in size. Aorta: Aortic root: The aortic root is normal in size. PATIENT NAME: RADHA CARPENTER ACCOUNT #: [id number] Aortic valve: The valve is trileaflet. The leafl ets are moderately calcified. There is moderate regurgitation. Mitral valve: The leaflets are mildly calcified. There is no evidence of stenosis. There is trivial regurgitation. Tricuspid valve: The valve is structurally edy l. There is mild regurgitation. Pulmonic valve: Not well visualized. There is tr ivial regurgitation. Pericardium: There is no pericardial effusion. Systemic veins: Inferior vena cava: The vessel is normal in size . Measurements Left ventricle Value Ref SILVIA, LAX 4.7 cm 3.8 - 5.2 ESD, LAX 3.3 cm 2.2 - 3.5 FS, LAX 31 % 27 - 45 PW, ED 1.2 cm 0.6 - 0.9 PW, ES 1.5 cm --------- IVS/PW, ED 1.06 --------- EF 58 % 54 - 74 IVRT 93 ms --------- LVOT Value Ref Diam, S 2.04 cm --------- Area 3.3 cm 2 --------- Peak femi, S 1.32 m/sec --------- Mean femi, S 0.88 m/sec --------- VTI, S 28.1 cm --------- Peak grad, S 7 mm Hg --------- Mean grad, S 3 mm Hg --------- SV 92 ml --------- Ventricular septum Value Ref IVS, ED 1.2 cm 0.6 - 0.9 IVS, ES 1.5 cm --------- Right ventricle Value Ref Pressure, S 45 mm Hg --------- Left atrium Value Ref AP dim, ES MM 4.6 cm 2.7 - 3.8 LA/Ao root ratio, MM 1.27 --------- Aortic valve Value Ref Leaflet sep, MM 1.48 cm --------- Peak v, S 2.26 m/sec --------- Mean v, S 1.47 m/sec --------- VTI, S 48.8 cm --------- Mean grad, S 10.1 mm Hg --------- Peak grad, S 20.4 mm Hg --------- LVOT/AV, VTI ratio 0.58 --------- ZONIA, VTI 1.88 cm 2 --------- PATIENT NAME: RADHA CARPENTER ACCOUNT #: [id number] LVOT/AV, Vpeak ratio 0.58 --------- ZONIA, Vmax 1.91 cm 2 --------- AR peak v 3.6 m/sec --------- AR decel 202 cm/s 2 --------- AR decel time 1783 ms --------- AR PHT 517 ms --------- AR peak grad 52 mm Hg --------- Mitral valve Value Ref Peak E 1.16 m/sec --------- Peak A 1 m/sec --------- Decel time 245 ms --------- PHT 50 ms --------- Peak grad, D 5.4 mm Hg --------- Peak E/A ratio 1.16 --------- MVA, PHT 4.4 cm 2 --------- Pulmonic valve Value Ref UT peak v 1.31 m/sec --------- UT peak grad 7 mm Hg --------- Tricuspid valve Value Ref TR peak v 3.16 m/sec <=2.8 Peak RV-RA grad, S 40 mm Hg --------- Aortic root Value Ref Root diam, ED MM 3.59 cm --------- Pulmonary artery Value Ref Pressure, S 39.4 mm Hg --------- Systemic veins Value Ref Estimated CVP 5 mm Hg --------- Pulmonary veins Value Ref A rev duration 138 ms --------- Conclusions Summary: 1. Left ventricle: The cavity size is normal. Wa ll thickness is mildly increased. Systolic function is normal. The est imated ejection fraction is 60-64%. Wall motion is normal; ther e are no regional wall motion abnormalities. Left ventricular diastoli c function parameters are normal. 2. Right ventricle: The RV pressure during systo le by Doppler is 45 mm Hg. 3. Aortic valve: There is moderate regurgitation . Prepared and electronically signed by PATIENT NAME: RADHA CARPENTER CORI ACCOUNT #: [id number] Anurag Sanderson MD 03/01/2023 17:28 at 1728 PATIENT NAME: RADHA CARPENTER ACCOUNT #: [id number]
[2023-03-05 12:03] LABS: Absolute Lymphocytes (CBC) 1.3 K/uL (0.7-4.9); Hematocrit 32.2 % (36.0-45.0); Lymphocytes % 19.5 % (15.3-44.8); MCV 87.4 fL (80-100); MPV 7.5 fL (7.6-11.3); RBC Red Blood Cell Count 3.68 M/uL (3.86-4.86)
[2023-03-05] MEDS ORDERED: NA CHLORIDE 0.9% 500 ML ONE (12:05)
[2023-03-05] MEDS ORDERED: NA CHLORIDE 0.9% 1,000 ML ONE (12:05)
[2023-03-05 12:10] LABS: Protime INR 1.03
[2023-03-05 12:25] LABS: ALT/SGPT 17 U/L (13-56); AST/SGOT 14 U/L (15-37); Albumin 3.2 g/dL (3.4-5.0); Alkaline Phosphatase 103 U/L (45-117); BUN Blood Urea Nitrogen 30 mg/dL (7-18); Bicarbonate 31 mEq/L (21-32); Bilirubin Total 0.3 mg/dL (0.2-1.0); Glomerular Filtration Rate 18 ml/min (=/>90); Glucose Level 211 mg/dL (74-106); Lipase 42 U/L (13-75); Magnesium 2.4 mg/dL (1.6-2.4); NT PRO-BNP 2006 pg/mL (<450); Potassium 3.3 mEq/L (3.5-5.1); Sodium Level 140 mEq/L (136-145); Troponin High Sensitivity 16.2 pg/mL (<58.9)
[2023-03-05 12:30] LABS: Bilirubin Direct < 0.1 mg/dL (0-0.2); Bilirubin Indirect, Calculated ND mg/dL (0.2-0.8)
--- NOTE | 2023-03-05 12:54 | RAD REPORT ---
EXAM DESCRIPTION: RAD - Chest Single View - 03/05/2023 12:44 pm CLINICAL HISTORY: COUGH Chest pain. COMPARISON: Chest Single View dated 01/20/2023; Chest Pa And Lat (2 Views) dated 12/29/2022; Chest Sin gle View dated 10/03/2022; Chest Pa And Lat (2 Views) dated 09/20/2022 FINDINGS: Portable technique limits examination quality. There is linear atelectasis in both lung bases. Elevated right hemidiaphragm is present, unchanged. T he heart is mildly enlarged in size. Prominent left humeral hardware. IMPRESSION: Stable chest since 01/20/2023.
[2023-03-05] MEDS ORDERED: POTASSIUM 25 MEQ EFFERV TAB ONE (12:57)
--- NOTE | 2023-03-05 12:58 | ER ---
Nurse's Notes [facility] Name: Radha Bentley Age: 82 yrs Sex: Female : 1940 Arrival Date: 03/05/2023 Time: 11:09 Bed 5 Private MD: Villa Mann Diagnosis: Hypotension, unspecified;Bradycardia, unspecified;Dizziness and giddiness;Unspecified kidney failure-CHRONIC;Hypokalemia Presentation: 03/05 11:23 Chief complaint: Home BP 88/42, Hr 53, c/o dizziness and malaise upon waking today. hb Coronavirus screen: At this time, the client does not indicate any symptoms associated with coronavirus-19. Ebola Screen: No symptoms or risks identified at this time. Initial Sepsis Screen: Does the patient meet any 2 criteria? No. Patient's initial sepsis screen is negative. Does the patient have a suspected source of infection? No. Patient's initial sepsis screen is negative. Risk Assessment: Do you want to hurt yourself or someone else? Patient reports no desire to harm self or others. Onset of symptoms was March 05, 2023. 11:23 Method Of Arrival: Wheelchair hb 11:23 Acuity: VAIBHAV 2 hb Triage Assessment: 11:30 General: Appears in no apparent distress. Behavior is cooperative, appropriate for age, bp anxious. Pain: Denies pain. EENT: No deficits noted. Neuro: No deficits noted. Cardiovascular: Rhythm is sinus bradycardia. Respiratory: No deficits noted. GI: No signs and/or symptoms were reported involving the gastrointestinal system. : No signs and/or symptoms were reported regarding the genitourinary system. Derm: No deficits noted. Musculoskeletal: No deficits noted. Historical: - Allergies: 11:25 Avelox; hb 11:25 Band-aid adhesive; hb - PMHx: 11:25 ADD/ADHD; Heart Murmur; Hyperlipidemia; Hypertension; COPD; Hypothyroidism; kidney hb disease; - PSHx: 11:25 bilateral knee replacement; breast reduction; Cholecystectomy; Shoulder replacment; hb - Immunization history:: Adult Immunizations up to date. - Social history:: Smoking status: Patient denies any tobacco usage or history of. - Family history:: not pertinent. Screenin:00 [facility] ED Fall Risk Assessment (Adult) History of falling in the last 3 months, ko1 including since admission No falls in past 3 months (0 pts) Confusion or Disorientation No (0 pts) Intoxicated or Sedated No (0 pts) Impaired Gait Yes (1 pt) Mobility Assist Device Used Yes (1 pt) Altered Elimination No (0 pt) Score/Fall Risk Level 3 or more points = High Risk Oriented to surroundings, Maintained a safe environment, Educated pt \T\ family on fall prevention, incl call for assistance when getting out of bed, Assessed \T\ reinforced patient's understanding of fall precautions, Provided non-skid footwear, Hourly rounding (assess needs \T\ fall precautionary measures) done, Used ambulatory aids as needed (educated on \T\ assisted with), Used gait belt as appropriate Implemented a Fall Risk Plan of Care, Apply high fall risk patient identification: yellow non skid footwear/ fall signage, Remained w/in arm's length of patient and in sight while toileting, Offered frequent toileting (1:1 observation), Remained with patient while ambulating, Utilized family, sitter, or virtual doorperson as indicated. Abuse screen: Denies threats or abuse. Denies injuries from another. Nutritional screening: No deficits noted. Tuberculosis screening: No symptoms or risk factors identified. Assessment: 11:30 General: SEE TRIAGE NOTE. bp 13:30 Reassessment: No changes from previously documented assessment. Patient is alert, bp oriented x 3, equal unlabored respirations, skin warm/dry/pink. 15:30 Reassessment: ADMIT INITIATED. bp 17:30 Reassessment: Patient appears in no apparent distress at this time. Patient is alert, bp oriented x 3, equal unlabored respirations, skin warm/dry/pink. ROOM ASSIGNED, PENDING CLEAN. Vital Signs: 11:23 BP 92 / 48; Pulse 41; Resp 18; Temp 98.2; Pulse Ox 96% on R/A; Weight 83.91 kg; Height hb 4 ft. 11 in. ; Pain 0/10; 12:00 BP 138 / 56; Pulse 55; Resp 18; Pulse Ox 96% ; ko1 14:00 BP 171 / 68; Pulse 57; Resp 16; Pulse Ox 98% ; ko1 15:00 BP 173 / 74; Pulse 55; Resp 18; Pulse Ox 99% ; ko1 11:23 Body Mass Index 37.36 (83.91 kg, 149.86 cm) hb 11:23 Pain Scale: Adult hb ED Course: 11:13 Patient arrived in ED. im 11:14 Villa Mann MD is Private Physician. im 11:18 Ady Cuellar MD is Attending Physician. art 11:25 Triage completed. hb 11:25 Arm band placed on. hb 11:26 Anatoly Castillo, RN is Primary Nurse. bp 11:55 Inserted saline lock: 22 gauge in right antecubital area, using aseptic technique. bp Blood collected. 12:46 XRAY Chest (1 view) In Process Unspecified. EDMS 12:55 Davide Doyle MD is Hospitalizing Provider. art 15:00 Patient has correct armband on for positive identification. Fall risk band placed. ko1 Placed in gown. Bed in low position. Call light in reach. Side rails up X 1. Client placed on continuous cardiac and pulse oximetry monitoring. NIBP monitoring applied. machine biller on. Door closed. Noise minimized. Warm blanket given. 17:49 No provider procedures requiring assistance completed. Patient admitted, IV remains in bp place. Administered Medications: 12:07 Drug: NS 0.9% IV 500 ml Route: IV; Rate: bolus; Site: right antecubital; bp 12:07 Drug: NS 0.9% IV 1000 ml Route: IV; Rate: 125 ml/hr; Site: right antecubital; bp 12:59 Drug: Potassium PO Effervescent Tablet 25 mEq Route: PO; ko1 Medication: 17:49 VIS not applicable for this client. bp Outcome: 12:57 Decision to Hospitalize by Provider[facility] 18:18 Admitted to Med/surg accompanied by tech, via wheelchair, room 214, with chart, Report bp called to LESLIE PHILLIPS 18:18 Condition: stable 18:18 Instructed on the need for admit. 18:56 Patient left the ED. bp Signatures: Dispatcher [employer] EDVT Ady Cuellar MD MD cha Baxter, Heather, RN RN hb Peltier, Brian, Luz Marina Pineda RN, ALAN RN ko1 Tata Mayes im Corrections: (The following items were deleted from the chart) 11:25 11:23 BP 92 / 48; Pulse 43bpm; Resp 18bpm; Pulse Ox 96% RA; Temp 98.2F; 83.91 kg; hb Height 4 ft. 11 in.; BMI: 37.3; Pain 0/10, Adult; hb
--- NOTE | 2023-03-05 12:58 | EDPHYS ---
Physician Documentation [facility] Name: Radha Betnley Age: 82 yrs Sex: Female : 1940 Arrival Date: 03/05/2023 Time: 11:09 Bed 5 Private MD: [facility] ED Physician Ady Cuellar HPI: 03/05 12:40 This 82 yrs old Female presents to ER via Wheelchair with complaints of Low art blood pressure. 12:40 The patient presents with a history of irregular heart beat, heart skipping beats. art Context: The symptoms occur at rest. Onset: The symptoms/episode began/occurred 1 day(s) ago. Duration: The patient or guardian reports multiple episodes, that are intermittent. Modifying factors: The symptoms are aggravated by light activity. GOT WEAK AND DIZZY, NOTED BP LOW AND PULSE LOW. The patient presents with dizziness, feeling faint, generalized weakness. Context: occurred at home. Modifying factors: The symptoms are alleviated by lying down, the symptoms are aggravated by standing up. Historical: - Allergies: 11:25 Avelox; hb 11:25 Band-aid adhesive; hb - PMHx: 11:25 ADD/ADHD; Heart Murmur; Hyperlipidemia; Hypertension; COPD; Hypothyroidism; kidney hb disease; - PSHx: 11:25 bilateral knee replacement; breast reduction; Cholecystectomy; Shoulder replacment; hb - Immunization history:: Adult Immunizations up to date. - Social history:: Smoking status: Patient denies any tobacco usage or history of. - Family history:: not pertinent. ROS: 12:40 Constitutional: Negative for fever, chills, and weight loss, Eyes: Negative for injury, art pain, redness, and discharge, ENT: Negative for injury, pain, and discharge, Neck: Negative for injury, pain, and swelling, Respiratory: Negative for shortness of breath, cough, wheezing, and pleuritic chest pain, Abdomen/GI: Negative for abdominal pain, nausea, vomiting, diarrhea, and constipation, Back: Negative for injury and pain, : Negative for injury, bleeding, discharge, and swelling, MS/Extremity: Negative for injury and deformity, Skin: Negative for injury, rash, and discoloration, Psych: Negative for depression, anxiety, suicide ideation, homicidal ideation, and hallucinations, Allergy/Immunology: Negative for hives, rash, and allergies, Endocrine: Negative for neck swelling, polydipsia, polyuria, polyphagia, and marked weight changes, Hematologic/Lymphatic: Negative for swollen nodes, abnormal bleeding, and unusual bruising. 12:40 Cardiovascular: Positive for palpitations. 12:40 Neuro: Positive for weakness. Exam: 12:40 Constitutional: This is a well developed, well nourished patient who is awake, alert, art and in no acute distress. Head/Face: Normocephalic, atraumatic. Eyes: Pupils equal round and reactive to light, extra-ocular motions intact. Lids and lashes normal. Conjunctiva and sclera are non-icteric and not injected. Cornea within normal limits. Periorbital areas with no swelling, redness, or edema. ENT: Nares patent. No nasal discharge, no septal abnormalities noted. Tympanic membranes are normal and external auditory canals are clear. Oropharynx with no redness, swelling, or masses, exudates, or evidence of obstruction, uvula midline. Mucous membranes moist. Neck: Trachea midline, no thyromegaly or masses palpated, and no cervical lymphadenopathy. Supple, full range of motion without nuchal rigidity, or vertebral point tenderness. No Meningismus. Chest/axilla: Normal chest wall appearance and motion. Nontender with no deformity. No lesions are appreciated. Respiratory: Lungs have equal breath sounds bilaterally, clear to auscultation and percussion. No rales, rhonchi or wheezes noted. No increased work of breathing, no retractions or nasal flaring. Abdomen/GI: Soft, non-tender, with normal bowel sounds. No distension or tympany. No guarding or rebound. No evidence of tenderness throughout. Back: No spinal tenderness. No costovertebral tenderness. Full range of motion. Female : Normal external genitalia. Skin: Warm, dry with normal turgor. Normal color with no rashes, no lesions, and no evidence of cellulitis. MS/ Extremity: Pulses equal, no cyanosis. Neurovascular intact. Full, normal range of motion. Neuro: Awake and alert, GCS 15, oriented to person, place, time, and situation. Cranial nerves II-XII grossly intact. Motor strength 5/5 in all extremities. Sensory grossly intact. Cerebellar exam normal. Normal gait. Psych: Awake, alert, with orientation to person, place and time. Behavior, mood, and affect are within normal limits. 12:40 Cardiovascular: Rate: bradycardic, actual rate is 41 bpm, Rhythm: regular, Pulses: Pulses are 4+ in bilateral radial, brachial, femoral, popliteal, posterior tibial and and dorsalis pedis arteries.. Heart sounds: normal, Edema: is not appreciated, JVD: is not appreciated. 12:40 ECG was reviewed by the Attending Physician. Vital Signs: 11:23 BP 92 / 48; Pulse 41; Resp 18; Temp 98.2; Pulse Ox 96% on R/A; Weight 83.91 kg; Height hb 4 ft. 11 in. ; Pain 0/10; 12:00 BP 138 / 56; Pulse 55; Resp 18; Pulse Ox 96% ; ko1 14:00 BP 171 / 68; Pulse 57; Resp 16; Pulse Ox 98% ; ko1 15:00 BP 173 / 74; Pulse 55; Resp 18; Pulse Ox 99% ; ko1 11:23 Body Mass Index 37.36 (83.91 kg, 149.86 cm) hb 11:23 Pain Scale: Adult hb MDM: 11:18 Patient medically screened. art 12:49 Differential diagnosis: arrythmia, dehydration, stress disorder. Differential art diagnosis: cardiac arrhythmia, generalized weakness, hypovolemia, idiopathic dizziness, near-syncope. Data reviewed: vital signs, nurses notes, lab test result(s), EKG, radiologic studies, plain films. Consideration of Admission/Observation Patient was admitted/placed on observation. Escalation of care including admission/observation considered. I considered the following discharge prescriptions or medication management in the emergency department Medications were administered in the Emergency Department. See MAR. Test considered but Not performed: CT: NO CT HEAD. Historians other than the Patient:. Care significantly affected by the following chronic conditions: Hypertension, Chronic Obstructive Pulmonary Disease, Obesity. Counseling: I had a detailed discussion with the patient and/or guardian regarding: the historical points, exam findings, and any diagnostic results supporting the discharge/admit diagnosis, lab results, the need for further work-up and treatment in the hospital. 03/05 11:19 Order name: Basic Metabolic Panel; Complete Time: 12:33 art 03/05 11:19 Order name: CBC with Diff; Complete Time: 12:33 art 03/05 11:19 Order name: LFT's; Complete Time: 12:33 [facility] 03/05 11:19 Order name: Magnesium; Complete Time: 12:33 art 03/05 11:19 Order name: NT PRO-BNP; Complete Time: 12:33 [facility] 03/05 11:19 Order name: PT-INR; Complete Time: 12:33 art 03/05 11:19 Order name: Troponin HS; Complete Time: 12:33 art 03/05 11:19 Order name: Lipase; Complete Time: 12:33 [facility] 03/05 11:19 Order name: Urinalysis W/Microscopic [facility] 03/05 15:06 Order name: Magnesium EDMS 03/05 15:09 Order name: Phosphorus EDMS 03/05 15:09 Order name: T4 Free EDMS 03/05 15:09 Order name: Thyroid Stimulating Hormone EDMS 03/05 15:09 Order name: Urinalysis w/ reflexes EDMS 03/05 15:09 Order name: Basic Metabolic Panel EDMS 03/05 15:09 Order name: Basic Metabolic Panel EDMS 03/05 15:09 Order name: CBC with Automated Diff EDMS 03/05 15:09 Order name: CBC with Automated Diff EDMS 03/05 15:09 Order name: Lipid Profile EDMS 03/05 15:09 Order name: Lipid Profile EDMS 03/05 15:12 Order name: Hemoglobin A1c EDMS 03/05 11:19 Order name: XRAY Chest (1 view); Complete Time: 13:17 [facility] 03/05 15:11 Order name: Echo with Doppler EDMS 03/05 11:19 Order name: EKG; Complete Time: 11:22 [facility] 03/05 15:06 Order name: CONS Physician Consult EDID 03/05 15:06 Order name: Heart Healthy EDID 03/05 11:19 Order name: Cardiac monitoring; Complete Time: 11:54 [facility] 03/05 11:19 Order name: EKG - Nurse/Tech; Complete Time: 11:54 [facility] 03/05 11:19 Order name: IV Saline Lock; Complete Time: 11:54 [facility] 03/05 11:19 Order name: Labs collected and sent; Complete Time: 11:55 [facility] 03/05 11:19 Order name: O2 Per Protocol; Complete Time: 11:55 [facility] 03/05 11:19 Order name: O2 Sat Monitoring; Complete Time: 11:55 [facility] EC:40 Rate is 48 beats/min. Rhythm is regular. QRS [place] is Normal. [place] interval is normal. QRS art interval is normal. QT interval is normal. No Q waves. T waves are Normal. No ST changes noted. Clinical impression: Sinus bradycardia and No evidence of ischemia. Interpreted by me. Reviewed by me. Administered Medications: 12:07 Drug: NS 0.9% IV 500 ml Route: IV; Rate: bolus; Site: right antecubital; bp 12:07 Drug: NS 0.9% IV 1000 ml Route: IV; Rate: 125 ml/hr; Site: right antecubital; bp 12:59 Drug: Potassium PO Effervescent Tablet 25 mEq Route: PO; ko1 Disposition Summary: 03/05/23 12:57 Hospitalization Ordered Hospitalization Status: Inpatient Admission art Provider: Davide Doyle cha Location: Telemetry/MedSurg (Inpatient) art Condition: Fair art Problem: new art Symptoms: have improved art Bed/Room Type: Standard art Room Assignment: 214(03/05/23 17:27) dw Diagnosis - Hypotension, unspecified art - Bradycardia, unspecified art - Dizziness and giddiness art - Unspecified kidney failure - CHRONIC art - Hypokalemia art Forms: - Medication Reconciliation Form art - SBAR form art Signatures: Dispatcher [employer] EDLouise Lazaro RN RN Ady Sánchez MD MD cha Baxter, Heather, RN RN Anatoly Jimenez RN RN bp Oliver, Kathy, RN RN ko1 Corrections: (The following items were deleted from the chart) 17:27 12:57 art melody
[2023-03-05 13:39] LABS: Specific Gravity 1.008 (1.005-1.030); Urine Bacteria <20 /HPF (<20); Urine Bilirubin NEGATIVE (Negative); Urine Blood Negative (Negative); Urine Clarity Clear (Clear); Urine Color Colorless (Yellow); Urine Glucose NEGATIVE (Negative); Urine Mucus Slight /HPF (None Seen); Urine Protein NEGATIVE (Negative); Urine RBC <5 /HPF (None Seen); Urine Urobilinogen Normal (Normal); Urine pH 5.5 (5.0-7.0)
[2023-03-05] MEDS ORDERED: ACETAMINOPHEN 325 MG TABLET PO PRN (15:00)
[2023-03-05] MEDS ORDERED: TRAMADOL HCL 50 MG TAB PO PRN (15:00)
[2023-03-05] MEDS ORDERED: ONDANSETRON 4 MG/2 ML VIAL IV PRN (15:03)
--- NOTE | 2023-03-05 15:09 | P.HP ---
Certification for Inpatient Patient admitted to: Inpatient With expected LOS: >2 Midnights Patient will require the following post-hospital care: None Practitioner: I am a practitioner with admitting privileges, knowledge of patient current condition, hospital course, and medical plan of care. Services: Services provided to patient in accordance with Admission requirements found in Title 42 Section 412.3 of the Code of Federal Regulations Patient History Date of Service: 03/05/23 Reason for admission: Hypotensiona and Bradycardia History of Present Illness: Patient is a 82-year-old female with a past medical history significant for hypertension, hyperlipidemia, COPD, hypothyroidism, CKD who presents with complaint of hypotension and bradycardia. Patient reported that her blood pressure has been low since being placed on BP medications by her insurance application investigator. Patient had low BP levels being low --with SBP being in the 80s. Patient re ported associated signs or symptoms of dizziness, headache and poor appetite. Patient reported that she has chronic diarrhea and sometimes take Imodium. Patient denies any other signs and symptoms. Symptoms are aggravated or relieved by rest. Patient decided to present to the hospital for medical evaluation Allergies moxifloxacin HCl [From Avelox] Allergy (Intermediate, Verified 09/20/22 19:25) Itching/Hives/Rash adhesive [Adhesive] Adverse Reaction (Intermediate, Verified 09/20/22 19:25) Rash band-aid adhesive Allergy (Uncoded 10/03/17 08:51) Unknown Home Medications: Escitalopram Oxalate [Lexapro] 20 mg PO BID 11/19/11 Levothyroxine [Synthroid*] 0.112 mg PO DAILY 11/19/11 Ropinirole HCl 4 mg PO BID 11/19/11 Donepezil HCl [Aricept] 10 mg PO DAILY 10/03/17 Lovastatin 20 mg PO DAILY 10/03/17 buPROPion HCL [Bupropion HCl Sr] 150 mg PO BID 06/17/19 Pantoprazole [Protonix Tab*] 1 tab PO BID 06/28/21 Primidone 1 tab PO BEDTIME 06/28/21 Carvedilol [Coreg] 1 tab PO BID 09/21/22 Famotidine 40 mg PO BEDTIME 09/21/22 Furosemide [Lasix*] 80 mg PO DAILY 09/21/22 Nifedipine [Nifedipine ER] 30 mg PO DAILY 09/21/22 Melatonin 5 mg PO PRN PRN 03/06/23 - Past Medical/Surgical History Diabetic: No -: Hypertension -: Dyslipidemia -: Hypothyroidism -: Restless leg syndrome -: Gastroesophageal reflux disease -: depression -: Chronic diastolic congestive heart failure -: CKD 4 -: Bilateral knee replacement -: left shoulder replacement 2011 -: breast reduction -: gastric banding -: removal of adhesions and scar tissue Psychosocial/ Personal History: Patient is retired, lives at home with her family - Family History MOM -: Cancer Notes: BREAST FATH -: Cancer Notes: [place] - Social History Smoking Status: Former smoker Alcohol use: No CD- Drugs: No Caffeine use: No Place of Residence: Home Review of Systems General: Other (Poor appetite ) Eyes: Unremarkable ENT: Unremarkable Respiratory: Unremarkable Cardiovascular: Unremarkable Gastrointestinal: Unremarkable Genitourinary: Unremarkable Musculoskeletal: Unremarkable Integumentary: Unremarkable Neurological: Other (Headache, dizziness) Lymphatics: Unremarkable Physical Examination - Physical Exam General: Alert, In no apparent distress, Oriented x3, Cooperative HEENT: Atraumatic, PERRLA, Mucous membr. moist/pink, EOMI, Sclerae nonicteric Neck: Supple, 2+ carotid pulse no bruit, No LAD, Without JVD or thyroid abnormality Respiratory: Clear to auscultation bilaterally, Normal air movement Cardiovascular: No edema, Regular rate/rhythm, Normal S1 S2 Capillary refill: <2 Seconds Gastrointestinal: Normal bowel sounds, Non-distended, No tenderness Musculoskeletal: No clubbing, No swelling, No contractures, No tenderness Integumentary: No rashes, No significant lesion, No tenderness/swelling Neurological: Normal speech, Normal strength at 5/5 x4 extr, Normal tone, Normal affect Lymphatics: No axilla or inguinal lymphadenopathy - Studies Laboratory Data (last 24 hrs) 03/05/23 11:50: PT 11.3, INR 1.03 03/05/23 11:50: WBC 6.50, Hgb 10.4 L, Hct 32.2 L, Plt Count 185 03/05/23 11:50: Sodium 140, Potassium 3.3 L, BUN 30 H, Creatinine 2.60 H, Glucose 211 H, Magnesium 2.4, Total Bilirubin 0.3, AST 14 L, ALT 17, Alkaline Phosphatase 103, Lipase 42 Assessment and Plan - Plan --Hypotension\bradycardia. Likely medication induced. We will hold off on BP meds. Echocardiogram pending to assess cardiac structures and function. Cardiology consulted. Will await further recommendations. --Dizziness. Likely secondary to hypotension. Fall precautions. Echocardiogram pending. Further management per insurance application investigator. --Hyperlipidemia. Continue statin. --COPD. Stable. Continue medication. --Hypothyroidism. Continue Synthroid. --Anemia of chronic disease. H&H stable. We will continue to monitor hemoglobin and transfuse if less than 7.0. --Hypokalemia. Replete as needed. --CKD 4. Slight depreciation in renal functions noted compared to levels on last admission. Nephrology consulted. We will further recommendation. --GERD. Continue Protonix. --RLS. Continue ropinirole --DVT prophylaxis with Lovenox subQ. Discharge Plan: Home Plan to discharge in: Greater than 2 days - Advance Directives Does patient have a Living Will: Yes Does patient have a Durable POA for Healthcare: Yes - Code Status/Comfort Care Code Status Assessed: Yes Physician Review: Patient Assessed, Agree with Above Assessment and Plan Critical Care: No
[2023-03-05] MEDS ORDERED: HYDRALAZINE HCL 20 MG/ML VIAL IV PRN (21:43)
[2023-03-05 22:18] VITALS: BMI 36.6
--- NOTE | 2023-03-06 03:41 | CON ---
Date of Consultation: 03/05/2023 Chief Complaint: Khmcv-xx-swpqyem kidney disease. History Of Present Illness: The patient presented to the hospital because of hypotension and bradyca rdia. Serum creatinine level is up to 2.6. Previous baseline 2.1. The patient has chronic kidney d isease stage 4. She came to the hospital because of generalized weakness. She was found to have hyp otension and bradycardia. She is to be admitted to the hospital and she will be evaluated by Cardiol fuad. She has history of chronic kidney disease stage 4, hyperlipidemia, congestive heart failure. P reviously she was admitted for congestive heart failure exacerbation and fluid overload. She is taki ng Lasix at home and she is on low-sodium diet. The patient has history of lower extremity edema garrett ated with diuretic. The patient denies chest pain or palpitations. Denies cough or hemoptysis. Review of Systems: General: Patient denies fever or chills. Eyes: Denies vision changes. Ears, Nose, Mouth, And Throat: Denies sore throat or earache. Respiratory: Denies PND or orthopnea. She has chronic dyspnea on exertion. Cardiovascular: Denies syncope, although she was complaining of generalized weakness and presyncope. GI: Denies nausea or vomiting. : Denies dysuria or hematuria. Musculoskeletal: Denies muscle aches or joint swelling. All other systems reviewed and all are negative. Past Medical History: Hypertension, dyslipidemia, hypothyroidism, restless legs syndrome, gastroesop hageal reflux disease, depression, chronic diastolic congestive heart failure, CKD 4, bilateral knee replacement, left shoulder replacement, gastric banding, removal of adhesion and scar tissue. Family History: Mother had cancer of the breast. Father cancer of unknown origin. Social History: Denies tobacco, alcohol, or illicit drugs. Laboratory Data: WBC 6.5, hemoglobin 10.4, hematocrit 32.2, and platelet count 185,000. Sodium 140, potassium 3.3, BUN 30, creatinine 2.6, glucose 211, magnesium 2.4, total bilirubin 0.3, and lipase 4 2. Impression And Plan: 1.Cqioq-jo-yjbmxyx kidney injury secondary to prerenal azotemia triggered by hypotension and bradyca rdia. The patient was taking carvedilol along with Lasix. Currently, Lasix is on hold to prevent hy potensive episodes. Cardiology is consulted for bradycardia. The patient is asymptomatic. 2.Hypertension. Monitor blood pressure closely and adjust medication. 3.Hyperlipidemia. The patient is on lovastatin. Check CK level to rule out rhabdomyolysis. 4.Fcylr-hr-ducwowu kidney injury. Plan is to check urinalysis to screen for any evidence of abnorma l urinary sediment. 5.Hypothyroidism. The patient will have TSH evaluated in view of hypotensive episodes. EB/MODL Voice ID: [id number] Report ID: [id number]
[2023-03-06] MEDS ORDERED: METOPROLOL TARTRATE 5 MG/5 ML INJ IV STA ×2 (04:05→04:33)
--- NOTE | 2023-03-06 04:20 | P.PN ---
Date of Service: 03/06/23 Patient developed atrial fibrillation overnight with rates up to 120s/130s. She initially came in with low BP/HR. She has been told once before by her PCP she had a fib when she was in the hospital but did not think she had it again since then. She takes carvedilol 25mg PO BID at home, last dose was morning of 03/05. Her evening dose was held given her low bp and Hr earlier. Her CHADS-VASC score is 5 but she falls frequently and had an intracranial hemorrhage in the last year so I will defer on anticoagulation for now. Will give IV lopressor for rate control at low dose and repeat PRN. Consult with cardiology and echo ordered. Added TSH/T4.
[2023-03-06 07:17] LABS: Absolute Lymphocytes (CBC) 1.5 K/uL (0.7-4.9); Hematocrit 33.4 % (36.0-45.0); Lymphocytes % 19.3 % (15.3-44.8); MCV 86.9 fL (80-100); MPV 7.6 fL (7.6-11.3); RBC Red Blood Cell Count 3.84 M/uL (3.86-4.86)
[2023-03-06 07:36] LABS: Potassium 3.6 mEq/L (3.5-5.1)
[2023-03-06 07:58] LABS: Thyroid Stimulating Hormone 0.909 uIU/mL (0.358-3.740)
[2023-03-06] MEDS ORDERED: PNEUMOCOCCAL VACCINE 0.5 ML IMVAC ONE (08:00)
[2023-03-06] MEDS: BUPROPRION HCL S.R. 150MG TAB PO SCH ×2 (09:00→21:44)
[2023-03-06] MEDS ORDERED: APIXABAN 2.5 MG TABLET PO SCH (09:00)
[2023-03-06] MEDS ORDERED: ENOXAPARIN 30 MG/0.3 ML SQ SCH (09:00)
[2023-03-06] MEDS: ENOXAPARIN 30 MG/0.3 ML SQ SCH (09:40)
[2023-03-06] MEDS: ROPINIROLE HCL 1 MG TAB PO SCH ×2 (09:41→21:49)
[2023-03-06] MEDS: LEVOTHYROXINE SOD 0.112 MG TAB PO SCH (09:41)
[2023-03-06] MEDS: ESCITALOPRAM 20 MG TAB PO SCH ×2 (09:41→21:44)
[2023-03-06] MEDS: ASPIRIN 81 MG CHEWABLE TABLET PO SCH (09:42)
[2023-03-06] MEDS: PANTOPRAZOLE 40MG TABLET PO SCH ×2 (09:42→16:52)
[2023-03-06] MEDS: ATORVASTATIN 10 MG TAB PO SCH (09:42)
[2023-03-06] MEDS: DONEPEZIL HCL 5 MG TAB PO SCH (09:42)
--- NOTE | 2023-03-06 12:17 | PN ---
Date of Progress Note: 03/06/2023 Subjective: The patient was admitted with bradycardia, hypotension, acute kidney injury secondary to prerenal/cardiorenal secondary to low blood pressure. The patient's blood pressure and bradycardia resolved, kidney function back to baseline. The patient on room air. Still has some swelling, but not significant, but the patient is still complaining from shortness of breath. Physical Examination: Vital Signs: Blood pressure 134/88, pulse of 110, afebrile. Chest: Clear to auscultation. Heart: S1, S2. Regular. Tachycardic. Abdomen: Soft, nontender. Extremity: Trace edema with venous stasis change. Laboratory Data: WBC 7.9, H and H 10.8/33.4. Sodium 142, potassium 3.6, bicarb 30, BUN 25, creatinine 1.9, GFR 26, calcium 8.6. TSH 0.9. Current Medications: The patient on include; 1. Aspirin. 2. Lovenox. 3. tylenol 4. Metoprolol p.r.n. 5. Lexapro. 6. Primidone. 7. Requip. 8. Pantoprazole. 9. Zofran. 10. Levothyroxine. 11. Melatonin. 12. Tramadol. Assessment And Plan: 1. Chronic kidney disease, advanced, stage 4 secondary to cardiorenal. Looked to me currently on the normal volume to the dry side. I am going to keep holding the Lasix for the time being and we will monitor the patient. 2. Edema, mostly secondary to pulmonary, renal. The patient's chest x-ray clear. I am going to continue to monitor the patient, hold the Lasix for the time being, and we will follow up the patient closely. We will consult Pulmonary to evaluate. 3. Edema as above. 4. Shortness of breath. The patient has history of chronic obstructive pulmonary disease before, currently looked to me on the normal volume side. I am going to go ahead and consult Pulmonary for evaluation. We will discuss about resuming spironolactone/calcium channel vivian as her ejection fraction is preserved and we will follow up. Time spent examining the patient [id number], reviewing the data, lab and radiology, discussing the case with the patient , discussing the case with the meat team member including nursing staff on the floor, placing order, discussing the case with the hospitalist more than 35 minutes. BURTON Voice ID: [id number] Report ID: [id number] CAITLYN
--- NOTE | 2023-03-06 15:47 | P.PN ---
Subjective Date of Service: 03/06/23 Chief Complaint: Hypotensiona and Bradycardia Overnight, she developed atrial fibrillation with rapid ventricular response. She was given 2 doses of metoprolol, with reversion to normal sinus rhythm. This morning, she reports shortness of breath on exertion. She denies any chest pain or palpitations. Review of Systems 10-point ROS is otherwise unremarkable Respiratory: SOB with Excertion Physical Examination - Vital Signs Temperature: 99 F Blood Pressure: 164/73 Pulse: 67 Respirations: 16 Pulse Ox (%): 91 - Physical Exam General: Alert, In no apparent distress, Oriented x3 HEENT: Atraumatic, Sclerae nonicteric Neck: JVD not distended Respiratory: Clear to auscultation bilaterally, Diminished, Other (mild respiratory distress with exertion) Cardiovascular: No edema, Regular rate/rhythm, Normal S1 S2, No gallops, No rubs, No murmurs Gastrointestinal: Normal bowel sounds, Soft and benign, Non-distended, No tenderness, No rebound, No guarding Musculoskeletal: No clubbing Integumentary: No rashes Neurological: Normal speech, Normal affect Assessment And Plan - Plan # Suspected Medication-Induced Hypotension/Bradycardia followed by Atrial Fibrillation with Rapid Ventricular Response - improved # Chronic Compensated Diastolic Congestive Heart Failure # Moderate Pulmonary Hypertension # Hypertension - Cardiology consulted and spoke with Dr. Mckeon - recommendations appreciated - Recommended starting sotalol 40 mg BID - Hold home carvedilol, nifedipine - Hold off on systemic anticoagulation given history of intracranial hemorrhage - Chest x-ray = "stable chest since 01/20/2023." - V/Q scan = pending - Currently in normal sinus rhythm - EKG requested - Troponin = 16.2 - Transthoracic echocardiogram pending # KDIGO Stage I Acute Kidney Injury on Chronic Kidney Disease Stage IV # Anemia of Chronic Kidney Disease - Nephrology consulted and spoke with Dr. Bethea - recommendations appreciated - Creatinine = 2.60 -> 1.90 - Urinalysis = fairly unremarkable - Monitor creatinine and urine output - If worsening, obtain renal ultrasound - Renally dose medications # Dyslipidemia - Continue atorvastatin # Hypothyroidism - Continue home levothyroxine # Chronic Obstructive Pulmonary Disease - No evidence of acute exacerbation - Continue home medications # Depression - Continue home escitalopram, bupropion # Restless Leg Syndrome - Continue home ropinirole, primidone # Memory Issues - Continue home donepezil Davide Doyle M.D.
[2023-03-06] MEDS: SOTALOL HCL 80 MG TAB PO SCH ×2 (16:02→21:44)
[2023-03-06] MEDS: PRIMIDONE 50 MG TAB PO SCH (21:47)
[2023-03-07 04:21] LABS: Magnesium 2.3 mg/dL (1.6-2.4); Potassium 3.7 mEq/L (3.5-5.1)
[2023-03-07] MEDS ORDERED: LOPERAMIDE HCL 2 MG CAPSULE PO ONE (06:36)
--- NOTE | 2023-03-07 07:18 | EKG ---
Test Date: 2023-03-06 Test Time: 03:19:46 Quilting Machine Helper: ERICKSON MEASUREMENT RESULTS: Intervals: Rate: 113 [place]: QRSD: 108 QT: 366 QTc: 502 [place]: P: FL: QRS: -44 T: 58 INTERPRETIVE STATEMENTS: Atrial fibrillation with rapid ventricular response Left axis deviation Moderate voltage criteria for LVH, may be normal variant Nonspecific ST abnormality, probably digitalis effect Abnormal ECG Compared to ECG 03/05/2023 11:43:30 ST (T wave) deviation now present Sinus bradycardia no longer present First degree AV block no longer present T-wave abnormality no longer present Electronically Signed On 03-07-23 07:14:20 CDT by Omid Mckeon
--- NOTE | 2023-03-07 07:18 | EKG ---
Test Date: 2023-03-06 Test Time: 05:02:15 Hazmat Cdl A Driver: ERICKSON MEASUREMENT RESULTS: Intervals: Rate: 71 [place]: 254 QRSD: 116 QT: 438 QTc: 475 [place]: P: 58 [place]: 254 QRS: -44 T: 20 INTERPRETIVE STATEMENTS: Sinus rhythm with 1st degree AV block Left axis deviation Pulmonary disease pattern Left ventricular hypertrophy with QRS widening Abnormal ECG Compared to ECG 03/06/2023 03:19:46 First degree AV block now present Atrial fibrillation no longer present ST (T wave) deviation no longer present Electronically Signed On 03-07-23 07:14:19 CDT by Omid Mkceon
--- NOTE | 2023-03-07 07:22 | EKG ---
Test Date: 2023-03-05 Test Time: 11:43:30 Investigative Reporter: BP MEASUREMENT RESULTS: Intervals: Rate: 48 NM: 248 QRSD: 124 QT: 538 QTc: 480 [place]: P: 71 NM: 248 QRS: -33 T: -18 INTERPRETIVE STATEMENTS: Marked sinus bradycardia with 1st degree AV block Left axis deviation Left ventricular hypertrophy with QRS widening Nonspecific T wave abnormality Abnormal ECG Compared to ECG 01/20/2023 12:07:49 Left ventricular hypertrophy now present T-wave abnormality now present Electronically Signed On 03-07-23 07:15:19 CDT by Omid Mckeon
[2023-03-07] MEDS: ENOXAPARIN 30 MG/0.3 ML SQ SCH (08:37)
[2023-03-07] MEDS: BUPROPRION HCL S.R. 150MG TAB PO SCH ×2 (08:37→20:35)
[2023-03-07] MEDS: ROPINIROLE HCL 1 MG TAB PO SCH ×2 (08:37→20:35)
[2023-03-07] MEDS: DONEPEZIL HCL 5 MG TAB PO SCH (08:38)
[2023-03-07] MEDS: PANTOPRAZOLE 40MG TABLET PO SCH ×2 (08:38→16:14)
[2023-03-07] MEDS: ESCITALOPRAM 20 MG TAB PO SCH ×2 (08:38→20:35)
[2023-03-07] MEDS: SOTALOL HCL 80 MG TAB PO SCH ×2 (08:38→20:35)
[2023-03-07] MEDS: ASPIRIN 81 MG CHEWABLE TABLET PO SCH (08:38)
[2023-03-07] MEDS: ATORVASTATIN 10 MG TAB PO SCH (08:38)
[2023-03-07] MEDS: LEVOTHYROXINE SOD 0.112 MG TAB PO SCH (08:38)
--- NOTE | 2023-03-07 08:55 | RAD REPORT ---
EXAM DESCRIPTION: NM - Vent Perfusion VQ Scan - 03/07/2023 7:40 am CLINICAL HISTORY: SOB COMPARISON: Urinary Bladder dated 09/21/2022; Chest Single View dated 03/05/2023 TECHNIQUE: 19.8mCi Xe-133 gas inhaled and 7.1mCi Tc-MAA IV. Planar ventilation scan was performed in posterior projection after Xe-133 gas inhalation (wash-in, e quilibrium, and wash-out phases) followed by perfusion scan with Tc-MAA IV in multiple projections. Examination is correlated with recent chest radiograph. FINDINGS: Normal ventilation with appropriate wash-out and no significant air-trapping. No significant mismatched segmental perfusion defect. IMPRESSION: Low probability of acute pulmonary embolism.
[2023-03-07] MEDS ORDERED: POTASSIUM CL SA 10 MEQ TAB PO ONE (09:00)
--- NOTE | 2023-03-07 11:40 | P.PN ---
Subjective Date of Service: 03/07/23 Primary Care Provider: Nephrology progress note Chief Complaint: Hypotensiona and Bradycardia Subjective: Ambulating, Improving The patient was admitted with bradycardia, hypotension, acute kidney injury secondary to prerenal/cardiorenal secondary to low blood pressure. The patient's blood pressure and bradycardia resolved, kidney function back to baseline. The patient on room air. Still has some swelling, but not significant, but the patient is still complaining from shortness of breath. Patient kidney function continues to improve patient of diuresis still complaining from shortness of breath Review of Systems General: Unremarkable Respiratory: SOB with Excertion Cardiovascular: Unremarkable Neurological: Unremarkable Physical Examination - Vital Signs Temperature: 97.1 F Blood Pressure: 198/79 Pulse: 51 Respirations: 16 Pulse Ox (%): 96 - Physical Exam General: Alert, Oriented x3 HEENT: Atraumatic Neck: Supple, Without JVD or thyroid abnormality Respiratory: Clear to auscultation bilaterally Cardiovascular: No edema Musculoskeletal: No clubbing Integumentary: No rashes Neurological: Normal gait - Studies Hemoglobin 10.8 sodium 140 potassium 3.7 bicarb 29 BUN 27 creatinine 1.8 GFR 28 Imagings Data: VQ scan was negative for PE Assessment And Plan - Plan 1-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 I am going to keep holding the Lasix for the time being and we will monitor the patient. We will start the patient on spironolactone 2. Edema, mostly secondary to pulmonary, renal. The patient's chest x-ray clear. I am going to continue to monitor the patient, hold the Lasix for the time being, and we will follow up the patient closely. We will consult Pulmonary to evaluate. Started the patient on spironolactone 3. Hypokalemia start spironolactone 4. Shortness of breath. The patient has history of chronic obstructive pulmonary disease before, currently looked to me on the normal volume side. I am going to go ahead and consult Pulmonary for evaluation. We will discuss about resuming spironolactone/calcium channel vivian as her ejection fraction is preserved and we will follow up Time spent examining the patient [id number], reviewing the data, lab and radiology, discussing the case with the patient and the daughter by bedside, discussing the case with the java development team lead including nursing staff on the floor, placing order, discussing the case with the hospitalist more than 35 minutes. Physician Review: Patient Assessed, Agree with Above Assessment and Plan
--- NOTE | 2023-03-07 12:32 | CON ---
Date of Consultation: 03/06/2023 Reason For Consultation: Recurrent atrial fibrillation. History Of Present Illness: Ms. Bentley is 82. Came in with bradycardia, hypotension, recurrent atri al fibrillation. She had her Coreg held when she came in because her heart rate was low and soon the reafter she goes into rapid atrial fibrillation. She had a potassium of 3.3. Her creatinine was 2.6 . She was hypertensive at 173/74. Her BNP was elevated at 2066. Denied any chest pain, nausea, vom iting, diaphoresis, PND, orthopnea, pedal edema, palpitation, or syncope. Past Medical History: Includes stage 4 kidney disease for which she follows with Dr. Bethea, atria l fibrillation, hypertension, gastroesophageal reflux disease, dementia, hypothyroidism, chronic lovell tolic congestive heart failure. Allergies: SHE IS ALLERGIC TO MOXIFLOXACIN AND BAND-AID. Medications: Include Coreg, Procardia, Protonix, Aricept, Synthroid, Lasix, and Pepcid. Review of Systems: Negative. Social History: Negative. Family History: Negative. Physical Examination: Vital Signs: Blood pressure is 170/74, atrial fibrillation has resolved by the time I saw her, her h eart rate was in the 80s. HEENT: Negative. Neck: Supple with no bruit. Chest: Clear. Cardiac: Revealed a regular rhythm and rate. No murmurs, gallops, or rubs. Abdomen: Benign. Extremities: Revealed no clubbing, cyanosis, or edema. Diagnostic Data: As stated earlier. Impression And Plan: Atrial fibrillation, intolerant to beta-blockers. I will switch with low-dose sotalol 40 mg b.i.d., continue anticoagulation, consider Watchman. If her atrial fibrillation recurs , then we will consider an ablation and maybe a pacemaker. As far as I am concerned if she stays in sinus rhythm on sotalol, she can go home after her third dose. Case was discussed with Dr. Doyle. E chocardiogram is pending. ERICK/DAPHNEY Voice ID: [id number] Report ID: [id number]
[2023-03-07] MEDS: HYDRALAZINE HCL 20 MG/ML VIAL IV PRN (16:15)
[2023-03-07] MEDS: MELATONIN 5 MG TABLET PO PRN (20:35)
[2023-03-07] MEDS: PRIMIDONE 50 MG TAB PO SCH (20:35)
--- NOTE | 2023-03-07 20:53 | P.PN ---
Subjective Date of Service: 03/07/23 Primary Care Provider: Nephrology progress note Chief Complaint: Hypotensiona and Bradycardia No acute events overnight. Her breathing appears much improved this morning. Per Cardiology, she is clear to be discharged on sotalol. Per Nephrology, would like Pulmonology evaluation prior to discharge. Spoke with Dr. Gonsalez - recommendations appreciated. She denies any chest pain or palpitations. Review of Systems Respiratory: Shortness of Breath (improved) Physical Examination - Vital Signs Temperature: 97.5 F Blood Pressure: 166/67 Pulse: 52 Respirations: 16 Pulse Ox (%): 96 - Studies Laboratory Data (last 24 hrs) 03/07/23 02:20: Sodium 140, Potassium 3.7, BUN 27 H, Creatinine 1.82 H, Glucose 100, Magnesium 2.3 Assessment And Plan - Plan - Physical Exam General: Alert, In no apparent distress, Oriented x3 HEENT: Atraumatic, Sclerae nonicteric Neck: JVD not distended Respiratory: Clear to auscultation bilaterally, Diminished Cardiovascular: No edema, Regular rate/rhythm, No murmurs Gastrointestinal: Soft, Non-distended, No tenderness, No rebound, No guarding Musculoskeletal: No clubbing Integumentary: No rashes Neurological: Normal speech, Normal affect # Suspected Medication-Induced Hypotension/Bradycardia followed by Atrial Fibrillation with Rapid Ventricular Response - improved # Chronic Compensated Diastolic Congestive Heart Failure # Moderate Pulmonary Hypertension # Hypertension - Cardiology consulted and spoke with Dr. Mckeon - recommendations appreciated - Recommended starting sotalol 40 mg BID - Hold home carvedilol, nifedipine - Hold off on systemic anticoagulation given history of intracranial hemorrhage Pulmonology consulted and spoke with Dr. Gonsalez recommendations juliana reciated - Chest x-ray = "stable chest since 01/20/2023." - V/Q scan = "low probability of acute pulmonary embolism." - Currently in normal sinus rhythm - EKG requested - Troponin = 16.2 - Transthoracic echocardiogram pending # KDIGO Stage I Acute Kidney Injury on Chronic Kidney Disease Stage IV # Anemia of Chronic Kidney Disease - Nephrology consulted and spoke with Dr. Bethea - recommendations appreciated - Creatinine = 2.60 -> 1.90 -> 1.82 - Urinalysis = fairly unremarkable - Monitor creatinine and urine output - If worsening, obtain renal ultrasound - Renally dose medications # Dyslipidemia - Continue atorvastatin # Hypothyroidism - Continue home levothyroxine # Chronic Obstructive Pulmonary Disease - No evidence of acute exacerbation - Continue home medications # Depression - Continue home escitalopram, bupropion # Restless Leg Syndrome - Continue home ropinirole, primidone # Memory Issues - Continue home donepezil Davide Doyle M.D.
[2023-03-08 03:59] LABS: Potassium 4.9 mEq/L (3.5-5.1)
[2023-03-08] MEDS: PANTOPRAZOLE 40MG TABLET PO SCH ×2 (06:20→16:30)
--- NOTE | 2023-03-08 07:28 | ECHO ---
HEIGHT: 4 ft 11 in WEIGHT: 180 lb 0 oz DATE OF STUDY: 03/07/[address]: Sadaf Coronado 2-DIMENSIONAL: YES M.MODE: YES DOPPLER: YES COLOR FLOW: YES TDS: PORTABLE: YES DEFINITY: BUBBLE STUDY: DIAGNOSIS: HYPOTENSION, BRADYCARDIA CARDIAC HISTORY: CATHERIZATION: NO SURGERY: NO PROSTHETIC VALVE: NO PACEMAKER: NO MEASUREMENTS (cm) DIASTOLIC (NORMALS) SYSTOLIC (NORMALS) IVSd 1.3 (0.6-1.2) LA Diam 3.4 (1.9-4.0) LVEF 558% LVIDd 4.6 (3.5-5.7) LVIDs 3.2 (2.0-3.5) %FS 31% LVPWd 1.3 (0.6-1.2) Ao Diam 3.1 (2.0-3.7) 2 DIMENSIONAL ASSESSMENT: RIGHT ATRIUM: NORMAL LEFT ATRIUM: NORMAL RIGHT VENTRICLE: NORMAL LEFT VENTRICLE: MILD LEFT VENTRICULAR HYPERTROPHY TRICUSPID VALVE: MILD TRICUSPID REGURGITATION MITRAL VALVE: MITRAL ANNULAR CALCIFICATION WITH MILD MITRAL REGURGITATION PULMONIC VALVE: NORMAL AORTIC VALVE: MILD AORTIC INSUFFICIENCY PERICARDIAL EFFUSION: NONE AORTIC ROOT: NORMAL LEFT VENTRICULAR WALL MOTION: NORMAL DOPPLER/COLOR FLOW: SEE BELOW COMMENTS: 1. NORMAL LEFT VENTRICULAR EJECTION FRACTION 60-65% WITH NORMAL WALL MOTION 2. MITRAL ANNULAR CALCIFICATION WITH MILD MITRAL REGURGITATION 3. MILD AORTIC INSUFFICIENCY 4. MILD TRICUSPID REGURGITATION 5. GRADE I DIASTOLIC DYSFUNCTION 6. SEVERE PULMONARY HYPERTENSION WITH RIGHT VENTRICULAR SYSTOLIC PRESSURE GREATER THAN 60 mmHg TECHNOLOGIST: ZIYAD SINCLAIR
[2023-03-08] MEDS: BUPROPRION HCL S.R. 150MG TAB PO SCH ×2 (10:08→20:37)
[2023-03-08] MEDS: ASPIRIN 81 MG CHEWABLE TABLET PO SCH (10:08)
[2023-03-08] MEDS: SPIRONOLACTONE 25 MG TABLET PO SCH (10:09)
[2023-03-08] MEDS: LEVOTHYROXINE SOD 0.112 MG TAB PO SCH (10:09)
[2023-03-08] MEDS: ESCITALOPRAM 20 MG TAB PO SCH ×2 (10:09→20:37)
[2023-03-08] MEDS: DONEPEZIL HCL 5 MG TAB PO SCH (10:09)
[2023-03-08] MEDS: ENOXAPARIN 30 MG/0.3 ML SQ SCH (10:10)
[2023-03-08] MEDS: ATORVASTATIN 10 MG TAB PO SCH (10:10)
[2023-03-08] MEDS: ROPINIROLE HCL 1 MG TAB PO SCH ×2 (10:10→20:37)
--- NOTE | 2023-03-08 10:22 | P.PN ---
Subjective Date of Service: 03/08/23 Primary Care Provider: Nephrology progress note Chief Complaint: Hypotensiona and Bradycardia Subjective: Improving The patient was admitted with bradycardia, hypotension, acute kidney injury secondary to prerenal/cardiorenal secondary to low blood pressure. The patient's blood pressure and bradycardia resolved, kidney function back to baseline. The patient on room air. Still has some swelling, but not significant, but the patient is still complaining from shortness of breath. Patient kidney function continues to improve patient of diuresis still complaining from shortness of breath Review of Systems Unremarkable Respiratory: SOB with Excertion Physical Examination - Vital Signs Temperature: 97.5 F Blood Pressure: 161/70 Pulse: 48 Respirations: 20 Pulse Ox (%): 100 - Physical Exam General: Oriented x3 HEENT: Atraumatic Neck: 2+ carotid pulse no bruit Respiratory: Clear to auscultation bilaterally Cardiovascular: No edema Capillary refill: <2 Seconds Gastrointestinal: Normal bowel sounds, Soft and benign, Non-distended Musculoskeletal: No clubbing Neurological: Normal gait, Normal speech, Cranial nerves 3-12 intact - Studies Laboratory Tests 03/06/23 07:06 Creatinine 1.90 H Laboratory Tests 03/06/23 03/08/23 07:06 02:58 Hgb 10.8 L Sodium 138 Potassium 4.9 D Carbon Dioxide 29 Creatinine 1.96 H Assessment And Plan - Plan 1-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 I am going to keep holding the Lasix for the time being and we will monitor the patient. continue the patient on spironolactone add Lasix 80 mg qd 2. Edema, mostly secondary to pulmonary, renal. The patient's chest x-ray clear. I am going to continue to monitor the patient, hold the Lasix for the time being, and we will follow up the patient closely. We will consult Pulmonary to evaluate. continue the patient on spironolactone add Lasix 80 mg q 3. Hypokalemia continue spironolactone 4. Shortness of breath. The patient has history of chronic obstructive pulmonary disease before, currently looked to me on the normal volume side. I am going to go ahead and consult Pulmonary for evaluation. We will discuss about resuming spironolactone/calcium channel vivian as her ejection fraction is preserved and we will follow up ok for D/c planing f/u pulmonary and Us in 3 weeks Time spent examining the patient [id number], reviewing the data, lab and radiology, discussing the case with the patient and the daughter by bedside, discussing the case with the steam gigger including nursing staff on the floor, placing order, discussing the case with the hospitalist more than 35 minutes. Physician Review: Patient Assessed, Agree with Above Assessment and Plan
[2023-03-08] MEDS: HYDRALAZINE HCL 20 MG/ML VIAL IV PRN (17:41)
--- NOTE | 2023-03-08 20:03 | P.PN ---
Subjective Date of Service: 03/08/23 Primary Care Provider: Nephrology progress note Chief Complaint: Hypotensiona and Bradycardia No acute events overnight. She reports that her shortness of breath has resolved; however, she remains bradycardic. I spoke with Dr. Mckeon, who recommended that we discontinue sotalol prior to discharge. On review of her medications, donepezil and primidone have also been reported to cause bradycardia, so these medications were discontinued. Will monitor her heart rate today on telemetry and consider discharging if she can sustain heart rates consistently above 5060. She denies any chest pain or palpitations. Review of Systems 10-point ROS is otherwise unremarkable Respiratory: Shortness of Breath (minimal) Physical Examination - Vital Signs Temperature: 97.8 F Blood Pressure: 176/62 Pulse: 57 Respirations: 20 Pulse Ox (%): 94 Assessment And Plan - Plan - Physical Exam General: Alert, In no apparent distress, Oriented x3 HEENT: Atraumatic, Sclerae nonicteric Neck: JVD not distended Respiratory: Clear to auscultation bilaterally, Diminished Cardiovascular: No edema, Regular rate/rhythm, No murmurs Gastrointestinal: Soft, Non-distended, No tenderness, No rebound, No guarding Musculoskeletal: No clubbing Integumentary: No rashes Neurological: Normal speech, Normal affect # Suspected Medication-Induced Hypotension/Bradycardia followed by Atrial F ibrillation with Rapid Ventricular Response - improved # Chronic Compensated Diastolic Congestive Heart Failure # Moderate Pulmonary Hypertension # Hypertension - Cardiology consulted and spoke with Dr. Mckeon - recommendations appreciated - Discontinue sotalol due to persistent bradycardia - Hold home carvedilol, nifedipine - Hold off on systemic anticoagulation given history of intracranial hemorrhage Pulmonology consulted and spoke with Dr. Gonsalez recommendations appreciated - Chest x-ray = "stable chest since 01/20/2023." - V/Q scan = "low probability of acute pulmonary embolism." - Currently in sinus rhythm - EKG requested - Troponin = 16.2 - Transthoracic echocardiogram pending # KDIGO Stage I Acute Kidney Injury on Chronic Kidney Disease Stage IV # Anemia of Chronic Kidney Disease - Nephrology consulted and spoke with Dr. Bethea - recommendations appreciated - Creatinine = 2.60 -> 1.90 -> 1.82 -> 1.96 - Urinalysis = fairly unremarkable - Monitor creatinine and urine output - If worsening, obtain renal ultrasound - Renally dose medications # Dyslipidemia - Continue atorvastatin # Hypothyroidism - Continue home levothyroxine # Chronic Obstructive Pulmonary Disease - No evidence of acute exacerbation - Continue home medications # Depression - Continue home escitalopram, bupropion # Restless Leg Syndrome - Continue home ropinirole - Discontinue primidone as this can cause bradycardia # Memory Issues - Discontinue donepezil as this can cause bradycardia Davide Doyle M.D.
[2023-03-08] MEDS: MELATONIN 5 MG TABLET PO PRN (20:40)
[2023-03-08 21:19] VITALS: O2SAT 97
[2023-03-09 03:52] LABS: Magnesium 2.4 mg/dL (1.6-2.4); Potassium 4.7 mEq/L (3.5-5.1)
[2023-03-09] MEDS: HYDRALAZINE HCL 20 MG/ML VIAL IV PRN ×2 (05:49→12:30)
[2023-03-09] MEDS ORDERED: FUROSEMIDE 40 MG TABLET PO SCH (09:00)
[2023-03-09] MEDS: ROPINIROLE HCL 1 MG TAB PO SCH (09:37)
[2023-03-09] MEDS: BUPROPRION HCL S.R. 150MG TAB PO SCH (09:38)
[2023-03-09] MEDS: ATORVASTATIN 10 MG TAB PO SCH (09:38)
[2023-03-09] MEDS: LEVOTHYROXINE SOD 0.112 MG TAB PO SCH (09:38)
[2023-03-09] MEDS: SPIRONOLACTONE 25 MG TABLET PO SCH (09:38)
[2023-03-09] MEDS: ASPIRIN 81 MG CHEWABLE TABLET PO SCH (09:38)
[2023-03-09] MEDS: ENOXAPARIN 30 MG/0.3 ML SQ SCH (09:39)
[2023-03-09] MEDS: ESCITALOPRAM 20 MG TAB PO SCH (09:39)
[2023-03-09] MEDS: PANTOPRAZOLE 40MG TABLET PO SCH (09:41)
--- NOTE | 2023-03-09 13:26 | P.DS ---
Admission Date: 03/07/23 Discharge Date: 03/09/23 Disposition: ROUTINE DISCHARGE Discharge Condition: GOOD Reason for Admission: Hypotension and Bradycardia Consultations: 1. Cardiology 2. Nephrology 3. Pulmonology Hospital Course: DIAGNOSES: # Suspected Medication-Induced Hypotension/Bradycardia followed by Atrial Fibrillation with Rapid Ventricular Response - improved # KDIGO Stage I Acute Kidney Injury on Chronic Kidney Disease Stage IV # Chronic Compensated Diastolic Congestive Heart Failure # Severe Pulmonary Hypertension # History of Subarachnoid Hemorrhage # Hypertension # Anemia of Chronic Kidney Disease # Dyslipidemia # Hypothyroidism # Chronic Obstructive Pulmonary Disease # Depression # Restless Leg Syndrome # Memory Issues HOSPITAL COURSE: Ms. Radha Bentley is a pleasant 82 year old female with a past medical history significant for chronic diastolic congestive heart failure, chronic kidney disease stage IV, chronic obstructive pulmonary disease, dyslipidemia, hypothyroidism, depression, and restless leg syndrome who was admitted to the [facility] on 03/05/2023 for bradycardia and hypotension. She was admitted to the Medicine service. It was believed that her symptoms were secondary to the carvedilol she was taking at home. Shortly after admission, she developed atrial fibrillation with rapid ventricular response. Her transthoracic echocardiogram revealed, "1. normal left ventricular ejection fraction 60-65% with normal wall motion 2. mitral annular calcification with mild mitral regurgitation 3. mild aortic insufficiency 4. mild tricuspid regurgitation 5. grade I diastolic dysfunction 6. severe pulmonary hypertension with right ventricular systolic pressure greater than 60 mmHg." Cardiology was consulted and she was evaluated by Dr. Mckeon. He recommended that she be started on sotalol; however, her heart rates dropped again into the 40s. He recommended discontinuing all AV jovan blockers, and he recommended discharging her with close outpatient follow-up. He is planning to have her follow-up with him soon and he will refer her to an recyclable products sorter. Her medication list was revi ewed, and it was noted that primidone and donepezil can also cause bradycardia. These medications were stopped. She was monitored in the hospital, with improvement in her heart rates. In regards to anticoagulation, she recently had a subarachnoid hemorrhage in the last year, so systemic anticoagulation was not started. In regards to her renal function, she was found to have an acute kidney injury on chronic kidney disease stage IV. Nephrology was consulted and she was evaluated by Dr. Bethea. Her creatinine improved and stabilized. Dr. Bethea has cleared her for discharge with furosemide 40 mg daily and spironolactone 25 mg daily. He will repeat her basic metabolic panel at in his clinic. Pulmonology was consulted regarding her severe pulmonary hypertension and I spoke with Dr. Gonsalez. He recommended outpatient follow-up with him in clinic. On 03/09/2023, she was seen on rounds and deemed medically stable for discharge. She was discharged with instructions to schedule follow-up appointments with her PCP (Dr. Mann), with Cardiology (Dr. Mckeon), with Nephrology (Dr. Bethea), and with Pulmonology (Dr. Gonsalez). She was provided prescriptions for furosemide and spironolactone. She was given the opportunity to ask questions and reported no further questions. Furthermore, all questions were answered to the best of my ability. A copy of this discharge summary will be sent to the above providers to facilitate continuity of care. Today, I personally spent 25 minutes with on her case, of which greater than 50% of the time was spent in patient education, counseling, and coordination of care as described above. - Physical Exam General: Alert, In no apparent distress, Oriented x3 HEENT: Atraumatic, Sclerae nonicteric Neck: JVD not distended Respiratory: Clear to auscultation bilaterally, Diminished Cardiovascular: No edema, Regular rate/rhythm, No murmurs Gastrointestinal: Soft, Non-distended, No tenderness, No rebound, No guarding Musculoskeletal: No clubbing Integumentary: No rashes Neurological: Normal speech, Normal affect Vital Signs/Physical Exam: Temp Pulse Resp BP Pulse Ox 98.1 F 55 16 177/69 H 96 03/09/23 08:00 03/09/23 08:00 03/09/23 08:00 03/09/23 08:00 03/09/23 08:00 Laboratory Data at Discharge: WBC 7.90 thou/uL (4.3-10.9) 03/06/23 07:06 Hgb 10.8 g/dL (12.0-15.0) L 03/06/23 07:06 Hct 33.4 % (36.0-45.0) L 03/06/23 07:06 Plt Count 195 thou/uL (152-406) 03/06/23 07:06 PT 11.3 SECONDS (9.5-12.5) 03/05/23 11:50 INR 1.03 03/05/23 11:50 Sodium 135 mEq/L (136-145) L 03/09/23 03:21 Potassium 4.7 mEq/L (3.5-5.1) 03/09/23 03:21 BUN 34 mg/dL (7-18) H 03/09/23 03:21 Creatinine 2.12 mg/dL (0.55-1.02) H 03/09/23 03:21 Glucose 119 mg/dL (74-106) H 03/09/23 03:21 Phosphorus Cancelled 03/05/23 15:03 Magnesium 2.4 mg/dL (1.6-2.4) 03/09/23 03:21 Total Bilirubin 0.3 mg/dL (0.2-1.0) 03/05/23 11:50 AST 14 U/L (15-37) L 03/05/23 11:50 ALT 17 U/L (13-56) 03/05/23 11:50 Alkaline Phosphatase 103 U/L (45-117) 03/05/23 11:50 Triglycerides 146 mg/dL (<150) 03/06/23 07:06 Cholesterol 168 mg/dL (<200) 03/06/23 07:06 HDL Cholesterol 58 mg/dL (40-60) 03/06/23 07:06 Cholesterol/HDL Ratio 2.90 03/06/23 07:06 Lipase 42 U/L (13-75) 03/05/23 11:50 Home Medications: Escitalopram Oxalate [Lexapro] 20 mg PO BID 11/19/11 Levothyroxine [Synthroid*] 0.112 mg PO DAILY 11/19/11 Ropinirole HCl 4 mg PO BID 11/19/11 Lovastatin 20 mg PO DAILY 10/03/17 buPROPion HCL [Bupropion HCl Sr] 150 mg PO BID 06/17/19 Pantoprazole [Protonix Tab*] 1 tab PO BID 06/28/21 Famotidine 40 mg PO BEDTIME 09/21/22 Melatonin 5 mg PO PRN PRN 03/06/23 Furosemide [Lasix*] 40 mg PO DAILY #30 tab 03/09/23 Spironolactone [Aldactone*] 25 mg PO DAILY #30 tab 03/09/23 New Medications: Spironolactone [Aldactone*] 25 mg PO DAILY #30 tab Furosemide [Lasix*] 40 mg PO DAILY #30 tab Physician Discharge Instructions: 1. Please call and schedule follow-up appointment your PCP (Dr. Mann) in 3-5 days 2. Please call and schedule follow-up appointment Cardiology (Dr. Mckeon) in 3-5 days - He will assist in scheduling you for an Manager Test appointment - As we discussed, with atrial fibrillation, you are at an increased risk of developing a stroke. Normally, we would prescribe a blood thinner; however, we have decided not to start the blood thinner because of your history of a brain bleed. Please discuss blood thinners at your appointment with Dr. Mckeon. 3. Please call and schedule follow-up appointment Nephrology (Dr. Bethea) in 3-5 days - Please have him repeat your kidney blood work 4. Please call and schedule follow-up appointment Pulmonology (Dr. Gonsalez) in 5-7 days Diet: Renal Activity: Fall precautions Followup: Villa Mann MD [Primary Care Provider] - Omid Mckeon MD [ACTIVE - CAN ADMIT] - Salvatore Gonsalez MD [ACTIVE - CAN ADMIT] - Inderjit Bethea MD [ACTIVE - CAN ADMIT] - Time spent managing pt's care (in minutes): 25
--- NOTE | 2023-03-09 14:48 | EKG ---
Test Date: 2023-03-08 Test Time: 16:13:02 [facility] Director: DALIA MEASUREMENT RESULTS: Intervals: Rate: 51 MD: 254 QRSD: 114 QT: 484 QTc: 446 [place]: P: 84 MD: 254 QRS: -48 T: 9 INTERPRETIVE STATEMENTS: Sinus bradycardia with 1st degree AV block Pulmonary disease pattern Incomplete right bundle branch block Left anterior fascicular block Abnormal ECG Compared to ECG 03/06/2023 05:02:15 Incomplete right bundle-branch block now present Left anterior fascicular block now present Sinus rhythm no longer present Left-axis deviation no longer present Left ventricular hypertrophy no longer present Electronically Signed On 03-09-23 14:44:38 CDT by Omid Mckeon
--- NOTE | 2023-03-09 14:52 | EKG ---
Test Date: 2023-03-07 Test Time: 14:06:11 Oxygen Equipment Technician: RADHA MEASUREMENT RESULTS: Intervals: Rate: 55 TN: 222 QRSD: 118 QT: 488 QTc: 466 [place]: P: 87 TN: 222 QRS: -28 T: 14 INTERPRETIVE STATEMENTS: Sinus bradycardia with 1st degree AV block Nonspecific intraventricular conduction delay Borderline ECG Compared to ECG 03/06/2023 05:02:15 Intraventricular conduction delay now present Sinus rhythm no longer present Left-axis deviation no longer present Left ventricular hypertrophy no longer present Electronically Signed On 03-09-23 14:45:12 CDT by Omid Mckeon
[2023-03-09 14:59] VITALS: BP 203/79; TEMP 98.7
--- NOTE | 2023-03-09 16:07 | P.PN ---
Subjective Date of Service: 03/09/23 Primary Care Provider: Nephrology progress note Chief Complaint: Hypotension and Bradycardia Physical Examination - Vital Signs Temperature: 98.7 F Blood Pressure: 203/79 Pulse: 57 Respirations: 20 Pulse Ox (%): 94 Assessment And Plan - Plan 1-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 I am going to keep holding the Lasix for the time being and we will monitor the patient. continue the patient on spironolactone add Lasix 80 mg qd 2. Edema, mostly secondary to pulmonary, renal. The patient's chest x-ray clear. I am going to continue to monitor the patient, hold the Lasix for the time being, and we will follow up the patient closely. We will consult Pulmonary to evaluate. continue the patient on spironolactone add Lasix 80 mg q 3. Hypokalemia continue spironolactone 4. Shortness of breath. The patient has history of chronic obstructive pulmonary disease before, currently looked to me on the normal volume side. I am going to go ahead and consult Pulmonary for evaluation. We will discuss about resuming spironolactone/calcium channel vivian as her ejection fraction is preserved and we will follow up OK for d/c planing f/u pulmonary and Us in 3 weeks Physician Review: Patient Assessed, Agree with Above Assessment and Plan
[2023-03-10] MEDS ORDERED: FUROSEMIDE 40 MG TABLET PO SCH (09:00)
== END 2023-03-09 16:28 | disposition home or self-care (01) | DRG 315 ==
LOC: ER 11:09 → ERHOLD 14:56 → 2ND 18:24 → OBSVTOIN 03-07 15:55
PROVIDERS: ADMIT Internal Medicine; ATTEND Internal Medicine
DX: I95.9 Hypotension, unspecified (principal); I13.0 Hypertensive heart and chronic kidney disease with heart failure and stage 1 through stage 4 chronic kidney disease, or unspecified chronic kidney disease; I50.32 Chronic diastolic (congestive) heart failure; N18.4 Chronic kidney disease, stage 4 (severe); N17.9 Acute kidney failure, unspecified; T44.7X5A Adverse effect of beta-adrenoreceptor antagonists, initial encounter; I27.20 Pulmonary hypertension, unspecified; E87.6 Hypokalemia; I48.91 Unspecified atrial fibrillation; D63.1 Anemia in chronic kidney disease; I12.9 Hypertensive chronic kidney disease with stage 1 through stage 4 chronic kidney disease, or unspecified chronic kidney disease; E78.5 Hyperlipidemia, unspecified; J44.9 Chronic obstructive pulmonary disease, unspecified; E03.9 Hypothyroidism, unspecified; R00.1 Bradycardia, unspecified; G25.81 Restless legs syndrome; K21.9 Gastro-esophageal reflux disease without esophagitis; F32.A Depression, unspecified
CPT/HCPCS: 36415; 71045; 78582; 80048; 80061; 80076; 81001; 83690; 83735; 83880; 84439; 84443; 84484; 85025; 85610; 93005; 93306; 94760; 99285; A9540; A9558; G0378; J0360; J1650; J2405; J7030; J7040

== ENCOUNTER 2023-04-13 08:43 | Observation (INO) | payer MEDICARE ==
[2023-04-13 09:23] LABS: Absolute Lymphocytes (CBC) 1.1 K/uL (0.7-4.9); Hematocrit 29.7 % (36.0-45.0); Lymphocytes % 13.2 % (15.3-44.8); MCV 86.2 fL (80-100); MPV 7.5 fL (7.6-11.3); RBC Red Blood Cell Count 3.44 M/uL (3.86-4.86)
--- OUTSIDE RECORDS SUMMARY | 2023-04-13 09:40 | XMS REPORT | Continuity of Care Document ---
:1940 Author Organization [facility] t Address [address] [place] [address] Care Team Providers Name Role Phone [place] Primary Care Physician Anurag Sanderson Attending Clinician Unavailable Glenys Claros Attending Clinician Dealinda_Maria G Attending Clinician Unavailable Alisa Sanders Attending Clinician EMMANUEL VELEZ Attending Clinician Unavailable Emmanuel Velez Attending Clinician PEREZ MORENO Attending Clinician Unavailable Perez Moreno Attending Clinician Doctor Unassigned, [place] Attending Clinician Unavailable Allegra Laura Attending Clinician CARLY SINCLAIR Attending Clinician Unavailable Carly Sinclair DO Attending Clinician Solitario_Keesha Attending Clinician Unavailable Jeffrey Garcia Attending Clinician Olivia-Mbayo_A_AH Attending Clinician Unavailable Caitlyn Jerez Attending Clinician [phone] Vincent Soni Attending Clinician Sariah Becerra Attending Clinician Maria Luisa Rust NP Attending Clinician Timi [place] MD Attending Clinician TIMI AGUIRRE Attending Clinician Unavailable Physician, No Primary or Family Admitting Clinician Unavaila marika Sanders_Maria G Admitting Clinician Unavailable AYO CASTAÑEDA Admitting Clinician Unavailable Ayo Castañeda Admitting Clinician PEREZ MOREON Admitting Clinician Unavailable Perez Moreno Admitting Clinician CARLY SINCLAIR Admitting Clinician Unavailable Sunny Admitting Clinician Unavailable Olivia-Mbayo_A_AH Admitting Clinician Unavailable Vincent Soni Admitting Clinician TIMI AGUIRRE Admitting Clinician Unavailable Payers Payer Name Policy Type Policy Number Effective Date Expiration Date Carla kristen [facility] [id number] 2020 00:00:00 [employer] [place] [id number] 2019 CLASSIC/VALUE 00:00:00 [id number] (MEDICARE 00:00:00 REPLACEMENT HMO) [place] OF [place] - [id number] 2019 [place] (MEDICARE 00:00:00 REPLACEMENT/ADVANTA GE - HMO) Problems Condition Condition Condition Status Onset Resolution Last Treating Co mments Source Name Details Category Date Date Treatment Clinician Date SUBARACHMO SUBARACHM Diagnosis Active 2022-12-11 Memoria ID OID 11-25 21:45:00 l HEMORRHAGE HEMORRHAGE 23:05: He rmann Active 00 11/25/2022 [facility] Acute Acute Diagnosis Active 2022-11-25 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: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 00 (disorder) (disorder) Active 11/22/2022 Diagnosis 11/25/2022 [facility] SUBARACHNO SUBARACHN Diagnosis Active 2022-11-23 Memoria ID OID 11-20 15:38:00 l HEMORRHAGE HEMORRHAGE 00:00: He rmann Active 00 11/20/2022 [facility] FALL FROM FALL FROM Diagnosis Active 2019-102020-09-16 Memoria STANDING STANDING 2 21:55:00 l Active 00:00: Raul 09/04/2020 00 [facility] S/P FALL, S/P Diagnosis Active 2019-102020-09-05 Memoria FRACTURED FALL, 2 00:45:00 l RIGHT FRACTURED 00:00: Raul WRIST, RIGHT 00 HEAD HE WRIST, HEAD HE Active 09/04/2020 [facility] Traumatic Traumatic Problem 2022-12-04 Memoria subdural subdural 08:08:28 l hemorrhage hemorrhage He rmann with loss with loss of of consciousn consciousn ess status ess status unknown, unknown, initial initial encounter encounter 12/04/2022 [facility] Intracrani Intracran Diagnosis 2022-12-02 Memoria al injury ial injury 04:21:54 l with loss with loss Herm bernie of of consciousn consciousn ess ess (disorder) (disorder) Diagnosis 12/02/2022 [facility] 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 Francisco zhang stenosis stenosis 08:08:28 l in in [place] cervical cervical region region (disorder) (disorder) Active Problem 12/04/2022 [facility] TRAUM TRAUM Diagnosis Active 2022-12-11 Mem oria SUBDR HEM SUBDR HEM 21:45:00 l WITH LOC WITH LOC Ajay n STATUS STATUS UNKNOWN, UNKNOWN, Active [facility] Hypertensi Hypertens Problem Active 2022-12-04 Memoria ve lyle 08:08:28 l disorder, disorder, [place]ernie systemic systemic arterial arterial (disorder) (disorder) Active Problem 12/04/2022 [facility] Hyperlipid Hyperlipi Problem Active 2022-12-04 Memoria emia demia 08:08:28 l (disorder) (disorder) He rmann Active Problem 12/04/2022 [facility] Hypothyroi Hypothyro Problem Active 2022-12-04 Memoria dism idism 08:08:28 l (disorder) (disorder) He rmann Active Problem 12/04/2022 [facility] Memory Memory Problem Active 2022-12-04 Mem oria impairment impairment 08:08:28 l (finding) (finding) Herm bernie Active Problem 12/04/2022 [facility] Morbid Morbid Problem Active 2022-12-04 Mem oria obesity obesity 08:08:28 l (disorder) (disorder) He rmann Active Problem 12/04/2022 [facility] Recurrent Recurrent Problem Active 2022-12-04 Memoria falls falls 08:08:28 l (finding) (finding) Herm bernie Active Problem 12/04/2022 [facility] Transient Transient Problem Active 2022-12-04 Memoria ischemic ischemic 08:08:28 l attack attack Raul (disorder) (disorder) Active Problem 12/04/2022 [facility] Tremor Tremor Problem Active 2022-12-04 Jose Francisco zhang (finding) (finding) 08:08:28 l Active Raul Problem 12/04/2022 [facility] 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-04 Me moria kidney kidney 08:08:28 l disease disease Raul (disorder) (disorder) Active Problem 12/04/2022 [facility] 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-04 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:08:28 l e lung e lung [place] disease disease (disorder) (disorder) Active Problem 12/04/2022 [facility] 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 08:08:28 l (disorder) (disorder) He rmann Active Problem 12/04/2022 [facility] Essential Essential Problem Active 2022-12-04 Memoria tremor tremor 08:08:28 l (disorder) (disorder) He rmann Active Problem 12/04/2022 [facility] UNSPECIFIE UNSPECIFI Diagnosis Active 2020-09-16 Memoria D FALL, ED FALL, 21:55:00 l INITIAL INITIAL [place] ENCOUNTER ENCOUNTER Active [facility] [id number] 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 shoulder [facility] [id number] 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 [facility] [id number] Arthritis Problem Com mon of hand Spirit - [facility] History of Past Illness Condition Condition Condition Status Onset Resolution Last Treating Co mments Source Name Details Category Date Date Treatment Clinician Date Spinal Spinal Problem 2022-2022-12-04 2022-12-04 Memoria stenosis, stenosis, 11-29 08:08:28 08:08:28 l cervical cervical 16:54: Ajay n region region 00 11/29/2022 12/04/2022 [facility] Repeated Repeated Problem 2022-2022-12-04 2022-12-04 Memoria falls falls 11-29 08:08:28 08:08:28 l 11/29/2022 16:45: Ajay gorman 12/04/2022 00 [facility] Chronic Chronic Problem 2022-11-27 2022-11-27 Memoria kidney kidney 11-22 10:42:07 10:42:07 l disease, disease, 19:17: Ajay gorman unspecifie unspecifie 00 d d 11/22/2022 11/27/2022 [facility] Allergies, Adverse Reactions, Alerts Allergy Allergy Status Severity Reaction(s) Onset Inactive Treating Comm ents Source Name Type Date Date Clinician ADHESIVE DRUG Active Med Rash Univers TAPE-DEBBY 8-30 ity of ICONES 00:00: [place] [facility] MOXIFLOX DRUG Active Med Rash Univers ACIN HCL INGREDI 8-30 ity of 00:00: [place] [id number] [facility] Adhesive Propensi Active Rash Univer s Tape-Debby ty to 8-30 ity of icones adverse 00:00: [place] reaction 00 Medical s to Branch drug Moxiflox Propensi Active Rash Univer s acin Hcl ty to 8-30 ity of adverse 00:00: [place] reaction 00 Medical s to Branch drug moxiflox DA Active U [facility] acin HCl 2-15 West 00:00: [address] BANDAIDS DA Active MS [facility] ADHESIVE 2-15 [place] 00:00: [address] Avelox Avelox Active MS^Mild Memoria l [place] Avelox Allergy Active Rash Devoted to Medical substanc Group e Social History Social Habit Start Date Stop Date Quantity Comments Source ASSERTION [facility] Alcohol Comment Occasional [facility] History of Common Spirit - Tobacco Use [facility] Sex Assigned At Common Sp cristian - [facility] Alcohol intake 2022-08-10 2022-08-10 0 /d University of 00:00:00 00:00:00 [facility] Exposure to 2022-07-26 2022-08-05 Not sure [facility] SARS-CoV-2 00:00:00 12:21:00 [facility] (event) [place] Social History 2020-09-05 2020-09-05 Nancy najera 14:31:45 14:31:45 Tobacco use and 2020-06-28 2020-06-28 Never used Universit y of exposure 00:00:00 00:00:00 [facility] Smoking Status Start Date Stop Date Source Former Smoker 2022-11-18 00:00:00 2022-11-18 00:00:00 Common S pirit - [facility] Ce nter Never smoked tobacco [facility] Medications Ordered Filled Start Stop Current Ordering Indication Dosage Frequency Signature Comments Components Source Medication Medication Date Date Medication? Clinician (SIG) Name Name deisi Yes 500 mg = 2 Mem oria acid 250 mg 3-01 cap, PO, l oral 16:43: Q8H, # 30 [place] capsule(Dep 00 cap, 0 ekene) Refill(s), Pharmacy: [facility] #[id number], 149.86, cm, 11/27/22 8:13:00 [employer], Height, 86.364, kg, 11/27/22 8:13:00 [employer], Weight Tylenol No 1 tab, PO, Jose Francisco zhang with 3-01 Q6H, PRN l Codeine #3 16:43: Pain Score H ermann oral tablet 00 7-10, X 3 day, # 12 tab, 0 Refill(s), Pharmacy: [facility] #[id number], 149.86, cm, 11/27/22 8:13:00 [employer], Height, 86.364, kg, 11/27/22 8:13:00 [employer], Weight valproic Yes 500 mg = 2 Mem oria acid 250 mg 3-01 cap, PO, l oral 16:43: Q8H, # 30 Raul capsule(Dep 00 cap, 0 ekene) Refill(s), Pharmacy: [facility] #[id number], 149.86, cm, 11/27/22 8:13:00 TANKAGE GRINDER, Height, 86.364, kg, 11/27/22 8:13:00 [employer], Weight Tylenol 0 No 1 tab, PO, Jose Francisco zhang with 3-01 Q6H, PRN l Codeine #3 16:43: Pain Score H ermann oral tablet 00 7-10, X 3 day, # 12 tab, 0 Refill(s), Pharmacy: [facility] #[id number], 149.86, cm, 11/27/22 8:13:00 TANKAGE GRINDER, Height, 86.364, kg, 11/27/22 8:13:00 [employer]AGE [employer], Weight valproic 2022-0 Yes 500 mg = 2 Mem oria acid 250 mg 3-01 cap, PO, l oral 16:43: Q8H, # 30 [place] capsule(Dep 00 cap, 0 ekene) Refill(s), Pharmacy: [facility] #[id number], 149.86, cm, 11/27/22 8:13:00 TANKAGE GRINDER, Height, 86.364, kg, 11/27/22 8:13:00 [employer]AGE GR[employer], Weight Tylenol 2022-0 No 1 tab, PO, Jose Francisco zhang with 3-01 Q6H, PRN l Codeine #3 16:43: Pain Score H ermann oral tablet 00 7-10, X 3 day, # 12 tab, 0 Refill(s), Pharmacy: [facility] #[id number], 149.86, cm, 11/27/22 8:13:00 TANKAGE GRINDER, Height, 86.364, kg, 11/27/22 8:13:00 T[employer]AGE GR[employer]ER, Weight valproic 2022-0 Yes 500 mg = 2 Mem oria acid 250 mg 3-01 cap, PO, l oral 16:43: Q8H, # 30 [place] capsule(Dep 00 cap, 0 ekene) Refill(s), Pharmacy: [facility] #[id number], 149.86, cm, 11/27/22 8:13:00 TANKAGE GRINDER, Height, 86.364, kg, 11/27/22 8:13:00 [employer], Weight Tylenol 2022-0 No 1 tab, PO, Jose Francisco zhang with 3-01 Q6H, PRN l Codeine #3 16:43: Pain Score H ermann oral tablet 00 7-10, X 3 day, # 12 tab, 0 Refill(s), Pharmacy: [facility] #[id number], 149.86, cm, 11/27/22 8:13:00 TANKAGE GRINDER, Height, 86.364, kg, 11/27/22 8:13:00 TANKAGE GRINDER, Weight valproic 2022-0 Yes 500 mg = 2 Mem oria acid 250 mg 3-01 cap, PO, l oral 16:43: Q8H, # 30 Raul capsule(Dep 00 cap, 0 ekene) Refill(s), Pharmacy: [facility] #[id number], 149.86, cm, 11/27/22 8:13:00 TANKAGE GRINDER, Height, 86.364, kg, 11/27/22 8:13:00 TANKAGE GR[employer]ER, Weight Tylenol 3-0 No 1 tab, PO, Jose Francisco zhang with 3-01 Q6H, PRN l Codeine #3 16:43: Pain Score H ermann oral tablet 00 7-10, X 3 day, # 12 tab, 0 Refill(s), Pharmacy: [facility] #[id number], 149.86, cm, 11/27/22 8:13:00 TANKAGE GRINDER, Height, 86.364, kg, 11/27/22 8:13:00 TANKAGE GRINDER, Weight valproic 2022-0 Yes 500 mg = 2 Mem oria acid 250 mg 3-01 cap, PO, l oral 16:43: Q8H, # 30 [place] capsule(Dep 00 cap, 0 ekene) Refill(s), Pharmacy: [facility] #[id number], 149.86, cm, 11/27/22 8:13:00 TANKAGE GRINDER, Height, 86.364, kg, 11/27/22 8:13:00 T[employer]AGE GR[employer]ER, Weight Tylenol 2022-0 No 1 tab, PO, Jose Francisco zhang with 3-01 Q6H, PRN l Codeine #3 16:43: Pain Score H ermann oral tablet 00 7-10, X 3 day, # 12 tab, 0 Refill(s), Pharmacy: [facility] #[id number], 149.86, cm, 11/27/22 8:13:00 TANKAGE GRINDER, Height, 86.364, kg, 11/27/22 8:13:00 T[employer]AGE GR[employer], Weight rOPINIRole 3-0 Yes 2 mg = 1 Mem oria 2 mg oral 3-01 tab, PO, l tablet 16:42: Q12H, 0 Raul 00 Refill(s) acetaminoph 2023-0 Yes 100.4 F, M emoria en 325 mg 3-01 0 l oral 16:42: Refill(s) Raul tablet. 00 rOPINIRole 2023-0 Yes 2 mg = 1 Mem oria 2 mg oral 3-01 tab, PO, l tablet 16:42: Q12H, 0 Raul 00 Refill(s) acetaminoph 2023-0 Yes 100.4 F, M emoria en 325 mg 3-01 0 l oral 16:42: Refill(s) [place] tablet. 00 rOPINIRole 2023-0 Yes 2 mg = 1 Mem oria 2 mg oral 3-01 tab, PO, l tablet 16:42: Q12H, 0 [place] 00 Refill(s) acetaminoph 2023-0 Yes 100.4 F, M emoria en 325 mg 3-01 0 l oral 16:42: Refill(s) Raul tablet. 00 rOPINIRole 2023-0 Yes 2 mg = 1 Mem oria 2 mg oral 3-01 tab, PO, l tablet 16:42: Q12H, 0 [place] 00 Refill(s) acetaminoph 2023-0 Yes 100.4 F, M emoria en 325 mg 3-01 0 l oral 16:42: Refill(s) Raul tablet. 00 rOPINIRole 2023-0 Yes 2 mg = 1 Mem oria 2 mg oral 3-01 tab, PO, l tablet 16:42: Q12H, 0 Raul 00 Refill(s) acetaminoph 2023-0 Yes 100.4 F, M emoria en 325 mg 3-01 0 l oral 16:42: Refill(s) [place] tablet. 00 rOPINIRole 2023-0 Yes 2 mg = 1 Mem oria 2 mg oral 3-01 tab, PO, l tablet 16:42: Q12H, 0 Raul 00 Refill(s) acetaminoph 2023-0 Yes 100.4 F, M emoria en 325 mg 3-01 0 l oral 16:42: Refill(s) [place] tablet. 00 donepezil 2022-0 No 10 mg, 2 Jose Francisco zhang 2-28 tab, l 15:00: Route: PO, Drug form: TAB, Daily, Dosing Weight 86.364, kg, 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/28/22 9:00:00 TANKAGE GRINDER, 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, Stop date: 12/27/22 9:00:00 CDT, 0 ferrous 2022-0 No Notes: Memoria sulfate 2-28 Give with l 15:00: food. "Do Not Crush" NIFEdipine 2023-0 No 30 mg, 1 Mem oria 30 mg oral 2-28 tab, l tablet, 15:00: Route: PO, Herm bernie extended 00 Drug form: release ERTAB, Daily, Dosing Weight 86.364, kg, 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/28/22 9:00:00 TANKAGE GRINDER, 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, Stop date: 12/27/22 9:00:00 CDT, 0 donepezil 2023-0 No 10 mg, 2 Jose Francisco zhang 2-28 tab, l 15:00: Route: PO, [place] Drug form: TAB, Daily, Dosing Weight 86.364, kg, 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/28/22 9:00:00 TANKAGE GRINDER, 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, Stop date: 12/27/22 9:00:00 CDT, 0 ferrous 2023-0 No Notes: Memoria sulfate 2-28 Give with l 15:00: food. "Do Not Crush" NIFEdipine 2023-0 No 30 mg, 1 Mem oria 30 mg oral 2-28 tab, l tablet, 15:00: Route: PO, Herm bernie extended Drug form: release ERTAB, Daily, Dosing Weight 86.364, kg, 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/28/22 9:00:00 TANKAGE GRINDER, 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, Stop date: 12/27/22 9:00:00 CDT, 0 donepezil 2023-0 No 10 mg, 2 Jose Francisco zhang 2-28 tab, l 15:00: Route: PO, Raul 00 Drug form: TAB, Daily, Dosing Weight 86.364, kg, 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/28/22 9:00:00 TANKAGE GRINDER, 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, Stop date: 12/27/22 9:00:00 CDT, 0 ferrous 2023-0 No Notes: Memoria sulfate 2-28 Give with l 15:00: food. "Do Not Crush" NIFEdipine 2023-0 No 30 mg, 1 Mem oria 30 mg oral 2-28 tab, l tablet, 15:00: Route: PO, Herm bernie extended 00 Drug form: release ERTAB, Daily, Dosing Weight 86.364, kg, 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/28/22 9:00:00 TANKAGE GRINDER, 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, Stop date: 12/27/22 9:00:00 CDT, 0 donepezil 2023-0 No 10 mg, 2 Jose Francisco zhang 2-28 tab, l 15:00: Route: PO, [place] 00 Drug form: TAB, Daily, Dosing Weight 86.364, kg, 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/28/22 9:00:00 TANKAGE GRINDER, 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, Stop date: 12/27/22 9:00:00 CDT, 0 ferrous 2023-0 No Notes: Memoria sulfate 2-28 Give with l 15:00: food. "Do Not Crush" NIFEdipine 2023-0 No 30 mg, 1 Mem oria 30 mg oral 2-28 tab, l tablet, 15:00: Route: PO, Herm bernie extended 00 Drug form: release ERTAB, Daily, Dosing Weight 86.364, kg, 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/28/22 9:00:00 TANKAGE GRINDER, Duration: 30 day, Stop date: 12/27/22 9:00:00 CDT, 0 donepezil 2023-0 No 10 mg, 2 Jose Francisco zhang 2-28 tab, l 15:00: Route: PO, [place] 00 Drug form: TAB, Daily, Dosing Weight 86.364, kg, 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/28/22 9:00:00 TANKAGE GRINDER, Duration: 30 day, Stop date: 12/27/22 9:00:00 CDT, 0 ferrous 2023-0 No Notes: Memoria sulfate 2-28 Give with l 15:00: food. "Do Not Crush" NIFEdipine 2023-0 No 30 mg, 1 Mem oria 30 mg oral 2-28 tab, l tablet, 15:00: Route: PO, Herm bernie extended 00 Drug form: release ERTAB, Daily, Dosing Weight 86.364, kg, 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/28/22 9:00:00 TANKAGE GRINDER, Duration: 30 day, Stop date: 12/27/22 9:00:00 CDT, 0 donepezil 2023-0 No 10 mg, 2 Jose Francisco zhang 2-28 tab, l 15:00: Route: PO, Raul 00 Drug form: TAB, Daily, Dosing Weight 86.364, kg, 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/28/22 9:00:00 TANKAGE GRINDER, Duration: 30 day, Stop date: 12/27/22 9:00:00 CDT, 0 ferrous 2023-0 No Notes: Memoria sulfate 2-28 Give with l 15:00: food. "Do [place] 00 Not Crush" NIFEdipine 2022-0 No 30 mg, 1 Mem oria 30 mg oral 2-28 tab, l tablet, 15:00: Route: PO, Herm bernie extended 00 Drug form: release ERTAB, Daily, Dosing Weight 86.364, kg, 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/28/22 9:00:00 TANKAGE GRINDER, Duration: 30 day, Stop date: 12/27/22 9:00:00 CDT, 0 heparin 2022-0 No Notes: Memoria 5000 2-28 porcine l units/mL 14:00: heparin Ajay n injectable 00 solution heparin 2022-0 No Notes: Memoria 5000 2-28 porcine l units/mL 14:00: heparin Aajy n injectable 00 solution heparin 2022-0 No [...] Weight 86.364, kg, 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/28/22 6:00:00 TANKAGE GR[employer]ER, Duration: 30 day, Stop date: 12/27/22 6:00:00 CDT, 0 levothyroxi 2022-0 No 112 Memori a ne 2-28 microgram, l 12:00: 1 tab, [place] 00 Route: PO, Drug form: TAB, Q6AM, Dosing Weight 86.364, kg, 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/28/22 6:00:00 TANKAGE GRINDER, Duration: 30 day, Stop date: 12/27/22 6:00:00 CDT, 0 levothyroxi 2022-0 No 112 Memori a ne 2-28 microgram, l 12:00: 1 tab, Route: PO, Drug form: TAB, Q6AM, Dosing Weight 86.364, kg, 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/28/22 6:00:00 TANKAGE GRINDER, Duration: 30 day, Stop date: 12/27/22 6:00:00 CDT, 0 levothyroxi 2022-0 No 112 Memori a ne 2-28 microgram, l 12:00: 1 tab, Route: PO, Drug form: TAB, Q6AM, Dosing Weight 86.364, kg, 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/28/22 6:00:00 TANKAGE GRINDER, Duration: 30 day, Stop date: 12/27/22 6:00:00 CDT, 0 levothyroxi 2022-0 No 112 Memori a ne 2-28 microgram, l 12:00: 1 tab, Route: PO, Drug form: TAB, Q6AM, Dosing Weight 86.364, kg, 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/28/22 6:00:00 TANKAGE GRINDER, Duration: 30 day, Stop date: 12/27/22 6:00:00 CDT, 0 levothyroxi 2022-0 No 112 Memori a ne 2-28 microgram, l 12:00: 1 tab, Route: PO, Drug form: TAB, Q6AM, Dosing Weight 86.364, kg, 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/28/22 6:00:00 TANKAGE GRINDER, Duration: 30 day, Stop date: 12/27/22 6:00:00 CDT, 0 Wellbutrin 0 No 150 mg, 1 Me moria SR 2-28 tab, l 03:00: Route: PO, Drug form: ERTAB, Q12H, Dosing Weight 86.364, kg, 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/27/22 21:00:00 TANKAGE GRINDER, Duration: 30 day, Stop date: 12/27/22 9:00:00 [...] Weight 86.364, kg, 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/27/22 21:00:00 TANKAGE GRINDER, Duration: 30 day, Stop date: 12/26/22 21:00:00 CDT, 0 primidone 2022-0 No Notes: Memori a 2-28 (Same as: l 03:00: Mysoline) rOPINIRole No Notes: Memor ia 2-28 TIME l 03:00: CRITICAL MEDICATION (Same as: Requip) Wellbutrin No 150 mg, 1 Me moria SR 2-28 tab, l 03:00: Route: PO, Drug form: ERTAB, Q12H, Dosing Weight 86.364, kg, 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/27/22 21:00:00 TANKAGE GRINDER, Duration: 30 day, Stop date: 12/27/22 9:00:00 [...] Weight 86.364, kg, 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/27/22 21:00:00 TANKAGE GRINDER, Duration: 30 day, Stop date: 12/26/22 21:00:00 CDT, 0 primidone 2022-0 No Notes: Memori a 2-28 (Same as: l 03:00: Mysoline) rOPINIRole 0 No Notes: Memor ia 2-28 TIME l 03:00: CRITICAL MEDICATION (Same as: Requip) Wellbutrin No 150 mg, 1 Me moria SR 2-28 tab, l 03:00: Route: PO, Drug form: ERTAB, Q12H, Dosing Weight 86.364, kg, 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/27/22 21:00:00 TANKAGE GRINDER, Duration: 30 day, Stop date: 12/27/22 9:00:00 [...] Weight 86.364, kg, 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/27/22 21:00:00 TANKAGE GRINDER, Duration: 30 day, Stop date: 12/26/22 21:00:00 CDT, 0 primidone No Notes: Memori a 2-28 (Same as: l 03:00: Mysoline) rOPINIRole No Notes: Memor ia 2-28 TIME l 03:00: CRITICAL MEDICATION (Same as: Requip) Wellbutrin No 150 mg, 1 Me moria SR 2-28 tab, l 03:00: Route: PO, Drug form: ERTAB, Q12H, Dosing Weight 86.364, kg, 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/27/22 21:00:00 TANKAGE GRINDER, Duration: 30 day, Stop date: 12/27/22 9:00:00 [...] Weight 86.364, kg, 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/27/22 21:00:00 TANKAGE GRINDER, Duration: 30 day, Stop date: 12/26/22 21:00:00 CDT, 0 primidone 0 No Notes: Memori a 2-28 (Same as: l 03:00: Mysoline) rOPINIRole No Notes: Memor ia 2-28 TIME l 03:00: CRITICAL MEDICATION (Same as: Requip) Wellbutrin No 150 mg, 1 Me moria SR 2-28 tab, l 03:00: Route: PO, Drug form: ERTAB, Q12H, Dosing Weight 86.364, kg, 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/27/22 21:00:00 TANKAGE GRINDER, Duration: 30 day, Stop date: 12/27/22 9:00:00 CDT, 0 Coreg No Notes: Memoria 2-28 Give with l 03:00: food. 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:00 TANKAGE GRINDER, Duration: 30 day, Stop date: 12/26/22 21:00:00 CDT, 0 primidone 0 No Notes: Memori a 2-28 (Same as: l 03:00: Mysoline) rOPINIRole No Notes: Memor ia 2-28 TIME l 03:00: CRITICAL Raul 00 MEDICATION (Same as: Requip) Wellbutrin 0 No 150 mg, 1 Me moria SR 2-28 tab, l 03:00: Route: PO, Drug form: ERTAB, Q12H, Dosing Weight 86.364, kg, 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/27/22 21:00:00 TANKAGE GRINDER, Duration: 30 day, Stop date: 12/27/22 9:00:00 CDT, 0 Coreg 2022-0 No Notes: Memoria 2-28 Give with l 03:00: food. (Same As: Coreg) Lexapro 2022-0 No Notes: Memoria 2-28 (Same as: l 03:00: Lexapro) Pepcid 40 No Notes: Memori a mg oral 2-28 (Same as: l tablet 03:00: Pepcid) atorvastati 0 No 20 mg, 1 Me moria n 2-28 tab, l 03:00: Route: PO, Drug form: TAB, Bedtime, Dosing Weight 86.364, kg, 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/27/22 21:00:00 TANKAGE GRINDER, Duration: 30 day, Stop date: 12/26/22 21:00:00 CDT, 0 primidone 2022-0 No Notes: Memori a 2-28 (Same as: l 03:00: Mysoline) rOPINIRole 2022-0 No Notes: Memor ia 2-28 TIME l 03:00: CRITICAL MEDICATION (Same as: Requip) rOPINIRole 2022-0 No 4 mg, 1 Jose Francisco zhang 2-27 tab, l 23:00: Route: PO, Drug form: TAB, BID, Dosing Weight 86.364, kg, 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/27/22 17:00:00 TANKAGE GRINDER, Duration: 30 day, Stop date: 12/27/22 9:00:00 CDT pantoprazol 2022-0 No 40 mg, 1 Me moria e 2-27 tab, l 23:00: Route: PO, Drug form: ECTAB, BID, Dosing Weight 86.364, kg, 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/27/22 17:00:00 TANKAGE GRINDER, Duration: 30 day, Stop date: 12/27/22 9:00:00 CDT rOPINIRole 2023-0 No 4 mg, 1 Jose Francisco zhang 2-27 tab, l 23:00: Route: PO, [place] 00 Drug form: TAB, BID, Dosing Weight 86.364, kg, 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/27/22 17:00:00 TANKAGE GRINDER, Duration: 30 day, Stop date: 12/27/22 9:00:00 CDT pantoprazol 2023-0 No 40 mg, 1 Me moria e 2-27 tab, l 23:00: Route: PO, Raul 00 Drug form: ECTAB, BID, Dosing Weight 86.364, kg, 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/27/22 17:00:00 TANKAGE GRINDER, Duration: 30 day, Stop date: 12/27/22 9:00:00 CDT rOPINIRole 2023-0 No 4 mg, 1 Jose Francisco zhang 2-27 tab, l 23:00: Route: PO, Drug form: TAB, BID, Dosing Weight 86.364, kg, 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/27/22 17:00:00 TANKAGE GRINDER, Duration: 30 day, Stop date: 12/27/22 9:00:00 CDT pantoprazol 2023-0 No 40 mg, 1 Me moria e 2-27 tab, l 23:00: Route: PO, [place] 00 Drug form: ECTAB, BID, Dosing Weight 86.364, kg, 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/27/22 17:00:00 TANKAGE GRINDER, Duration: 30 day, Stop date: 12/27/22 9:00:00 CDT rOPINIRole 2023-0 No 4 mg, 1 Jose Francisco zhang 2-27 tab, l 23:00: Route: PO, Drug form: TAB, BID, Dosing Weight 86.364, kg, 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/27/22 17:00:00 TANKAGE GRINDER, Duration: 30 day, Stop date: 12/27/22 9:00:00 CDT pantoprazol 2023-0 No 40 mg, 1 Me moria e 2-27 tab, l 23:00: Route: PO, [place] 00 Drug form: ECTAB, BID, Dosing Weight 86.364, kg, 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/27/22 17:00:00 TANKAGE GRINDER, Duration: 30 day, Stop date: 12/27/22 9:00:00 CDT rOPINIRole 2023-0 No 4 mg, 1 Jose Francisco zhang 2-27 tab, l 23:00: Route: PO, Raul 00 Drug form: TAB, BID, Dosing Weight 86.364, kg, 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/27/22 17:00:00 TANKAGE GRINDER, Duration: 30 day, Stop date: 12/27/22 9:00:00 CDT pantoprazol 2023-0 No 40 mg, 1 Me moria e 2-27 tab, l 23:00: Route: PO, Raul 00 Drug form: ECTAB, BID, Dosing Weight 86.364, kg, 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/27/22 17:00:00 TANKAGE GRINDER, Duration: 30 day, Stop date: 12/27/22 9:00:00 CDT rOPINIRole 2023-0 No 4 mg, 1 Jose Francisco zhang 2-27 tab, l 23:00: Route: PO, [place] Drug form: TAB, BID, Dosing Weight 86.364, kg, 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/27/22 17:00:00 TANKAGE GRINDER, Duration: 30 day, Stop date: 12/27/22 9:00:00 CDT pantoprazol 2023-0 No 40 mg, 1 Me moria e 2-27 tab, l 23:00: Route: PO, [place] 00 Drug form: ECTAB, BID, Dosing Weight 86.364, kg, 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/27/22 17:00:00 TANKAGE GRINDER, Duration: 30 day, Stop date: 12/27/22 9:00:00 CDT valproic 2023-0 No 500 mg, 2 Jose Francisco zhang acid 250 mg 2-27 cap, l oral 22:00: Route: PO, [place] capsule(Dep 00 Drug form: ekene) CAP, Q8H, Dosing Weight 86.364, kg, 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/27/22 16:00:00 TANKAGE GRINDER, Duration: 7 day, Stop date: 12/04/22 8:00:00 TANKAGE GRINDER, 0 valproic 2023-0 No 500 mg, 2 Jose Francisco zhang acid 250 mg 2-27 cap, l oral 22:00: Route: PO, [place] capsule(Dep 00 Drug form: ekene) CAP, Q8H, Dosing Weight 86.364, kg, 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/27/22 16:00:00 TANKAGE GRINDER, Duration: 7 day, Stop date: 12/04/22 8:00:00 TANKAGE GRINDER, 0 valproic 2023-0 No 500 mg, 2 Jose Francisco zhang acid 250 mg 2-27 cap, l oral 22:00: Route: PO, [place] capsule(Dep 00 Drug form: ekene) CAP, Q8H, Dosing Weight 86.364, kg, 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/27/22 16:00:00 TANKAGE GRINDER, Duration: 7 day, Stop date: 12/04/22 8:00:00 TANKAGE GRINDER, 0 valproic 2023-0 No 500 mg, 2 Jose Francisco zhang acid 250 mg 2-27 cap, l oral 22:00: Route: PO, Raul capsule(Dep 00 Drug form: ekene) CAP, Q8H, Dosing Weight 86.364, kg, 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/27/22 16:00:00 TANKAGE GRINDER, Duration: 7 day, Stop date: 12/04/22 8:00:00 TANKAGE GRINDER, 0 valproic 2023-0 No 500 mg, 2 Jose Francisco zhang acid 250 mg 2-27 cap, l oral 22:00: Route: PO, [place] capsule(Dep 00 Drug form: ekene) CAP, Q8H, Dosing Weight 86.364, kg, 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/27/22 16:00:00 TANKAGE GRINDER, Duration: 7 day, Stop date: 12/04/22 8:00:00 TANKAGE GRINDER, 0 valproic 2023-0 No 500 mg, 2 Jose Francisco zhang acid 250 mg 2-27 cap, l oral 22:00: Route: PO, Raul capsule(Dep 00 Drug form: ekene) CAP, Q8H, Dosing Weight 86.364, kg, 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/27/22 16:00:00 TANKAGE GRINDER, Duration: 7 day, Stop date: 12/04/22 8:00:00 TANKAGE GRINDER, 0 gabapentin 2023-0 No 100 mg, 1 Me moria 100 mg oral 2-27 cap, l capsule 17:20: Route: PO, Herm bernie 00 Drug form: CAP, Daily, Dosing Weight 86.364, kg, Priority: NOW, 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/27/22 11:20:00 TANKAGE GRINDER, Duration: 30 day, Stop date: 12/27/22 9:00:00 CDT, 0 gabapentin 2023-0 No 100 mg, 1 Me moria 100 mg oral 2-27 cap, l capsule 17:20: Route: PO, Herm bernie Drug form: CAP, Daily, Dosing Weight 86.364, kg, Priority: NOW, 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/27/22 11:20:00 TANKAGE GRINDER, Duration: 30 day, Stop date: 12/27/22 9:00:00 CDT, 0 gabapentin 2023-0 No 100 mg, 1 Me moria 100 mg oral 2-27 cap, l capsule 17:20: Route: PO, Herm bernie Drug form: CAP, Daily, Dosing Weight 86.364, kg, Priority: NOW, 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/27/22 11:20:00 TANKAGE GRINDER, Duration: 30 day, Stop date: 12/27/22 9:00:00 CDT, 0 gabapentin 2023-0 No 100 mg, 1 Me moria 100 mg oral 2-27 cap, l capsule 17:20: Route: PO, Herm Drug form: CAP, Daily, Dosing Weight 86.364, kg, Priority: NOW, 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/27/22 11:20:00 TANKAGE GRINDER, Duration: 30 day, Stop date: 12/27/22 9:00:00 CDT, 0 gabapentin 2023-0 No 100 mg, 1 Me moria 100 mg oral 2-27 cap, l capsule 17:20: Route: PO, Herm Drug form: CAP, Daily, Dosing Weight 86.364, kg, Priority: NOW, 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/27/22 11:20:00 TANKAGE GRINDER, Duration: 30 day, Stop date: 12/27/22 9:00:00 CDT, 0 gabapentin 2023-0 No 100 mg, 1 Me moria 100 mg oral 2-27 cap, l capsule 17:20: Route: PO, Herm Drug form: CAP, Daily, Dosing Weight 86.364, kg, Priority: NOW, 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/27/22 11:20:00 TANKAGE GR[employer]ER, Duration: 30 day, Stop date: 12/27/22 9:00:00 CDT, 0 levETIRAcet 2022-0 No Notes: Jose Francisco zhang am 11-27 (Same l 15:00: as:Declan) [place] 00 docusate 2022-0 No Notes: Memoria 2-27 (Same as: l 15:00: Colace) [place] 00 (Do Not Crush) senna No Notes: Memoria 2-27 (Same as: l 15:00: Senokot) [place] 00 Saline No Notes: Memoria Flush 0.9% 2-27 (Same as: l 15:00: BD Raul 00 Posiflush) levETIRAcet No Notes: Jose Francisco zhang am 2-27 (Same l 15:00: as:Keppra) [place] 00 docusate No Notes: Memoria 2-27 (Same as: l 15:00: Colace) Raul 00 (Do Not Crush) senna No Notes: Memoria 2-27 (Same as: l 15:00: Senokot) [place] 00 Saline No Notes: Memoria Flush 0.9% 2-27 (Same as: l 15:00: BD Raul 00 Posiflush) levETIRAcet No Notes: Jose Franicsco zhang am 2-27 (Same l 15:00: as:Keppra) [place] 00 docusate No Notes: Memoria 2-27 (Same as: l 15:00: Colace) [place] 00 (Do Not Crush) senna No Notes: Memoria 2-27 (Same as: l 15:00: Senokot) [place] 00 Saline No Notes: Memoria Flush 0.9% 2-27 (Same as: l 15:00: BD [place] 00 Posiflush) levETIRAcet No Notes: Jose Francisco zhang am 2-27 (Same l 15:00: as:Keppra) [place] 00 docusate No Notes: Memoria 2-27 (Same as: l 15:00: Colace) [place] 00 (Do Not Crush) senna No Notes: Memoria 2-27 (Same as: l 15:00: Senokot) [place] 00 Saline No Notes: Memoria Flush 0.9% 2-27 (Same as: l 15:00: BD [place] 00 Posiflush) levETIRAcet No Notes: Jose Francisco zhang am 2-27 (Same l 15:00: as:Keppra) [place] 00 docusate No Notes: Memoria 2-27 (Same as: l 15:00: Colace) [place] 00 (Do Not Crush) senna No Notes: Memoria 2-27 (Same as: l 15:00: Senokot) [place] 00 Saline No Notes: Memoria Flush 0.9% 2-27 (Same as: l 15:00: BD [place] 00 Posiflush) levETIRAcet No Notes: Jose Francisoc zhang am 2-27 (Same l 15:00: as:Keppra) docusate No Notes: Memoria 2-27 (Same as: l 15:00: Colace) [place] 00 (Do Not Crush) senna No Notes: Memoria 2-27 (Same as: l 15:00: Senokot) [place] 00 Saline No Notes: Memoria Flush 0.9% 2-27 (Same as: l 15:00: BD Posiflush) acetaminoph No Notes: Do M emoria en - not exceed l 09:01: 4 gm/day. (Same as: Tylenol) bisacodyl No Notes: Memori a 2-27 (Same As: l 09:01: Dulcolax, Bisco-Lax) ondansetron No Notes: Jose Francisco zhang 2-27 (Same as: l 09:01: Zofran) MEDICATION WASTE Product Size: 4 mg Product Wasted: ___ mg hydrALAZINE No Notes: Jose Francisco zhang 2-27 (Same as: l 09:01: Apresoline ) Push over 5 minutes labetalol No 10 mg, 2 Jose Francisco zhang 2-27 mL, Route: l 09:01: IVP, Drug form: INJ, Q15Min, Dosing Weight 86.364, kg, 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/27/22 3:01:00 TANKAGE GRINDER, Duration: 3 doses or times, Stop date: 11/27/22 3:31:00 TANKAGE GRINDER, 0 Tylenol No Notes: Do Memor ia with 2-27 not exceed l Codeine #3 09:01: 4gm/day of H ermann oral tablet 00 acetaminop hen. (Same as: Tylenol with Codeine # 3) tramadol No Notes: Not Mem oria 2-27 to exceed l 09:01: 400mg/day. [place] 00 (Same As: Ultram) Saline No Notes: Memoria Flush 0.9% 2- (Same as: l 09:01: BD Raul 00 Posiflush) Insulin No Notes: Memoria regular 2-27 (Same as: l 09:01: Humulin R) Roll in palms of hands gently; Do not shake vigorously . WASTE: F/P - Black; E - Municipal Trash Bin Stable for 31 days at room temperatur e Expires in days from ____Date acetaminoph No Notes: Do M emoria en 2-27 not exceed l 09:01: 4 gm/day. Raul (Same as: Tylenol) bisacodyl No Notes: Memori a 2-27 (Same As: l 09:: Dulcolax, Bisco-Lax) ondansetron No Notes: Jose Francisco [...] Weight 86.364, kg, 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/27/22 3:01:00 TANKAGE GRINDER, Duration: 3 doses or times, Stop date: 11/27/22 3:31:00 TANKAGE GRINDER, 0 Tylenol No Notes: Do Memor ia with 2-27 not exceed l Codeine #3 09:01: 4gm/day of H ermann oral tablet 00 acetaminop hen. (Same as: Tylenol with Codeine # 3) tramadol No Notes: Not Mem oria 2-27 to exceed l 09:01: 400mg/day. Raul (Same As: Ultram) Saline No Notes: Memoria Flush 0.9% 11-27 (Same as: l 09:: BD Posiflush) Insulin No Notes: Memoria regular - (Same as: l 09:: Humulin R) Roll in palms of hands gently; Do not shake vigorously . WASTE: F/P - Black; E - Municipal Trash Bin Stable for 31 days at room temperatur e Expires in days from ____Date acetaminoph No Notes: Do M emoria en - not exceed l 09:01: 4 gm/day. Raul (Same as: Tylenol) bisacodyl No Notes: Memori a 2-27 (Same As: l 09:: Dulcolax, [place]ul 00 Bisco-Lax) ondansetron No Notes: Jose Francisco zhang [...] Weight 86.364, kg, 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/27/22 3:01:00 TANKAGE GRINDER, Duration: 3 doses or times, Stop date: 11/27/22 3:31:00 TANKAGE GRINDER, 0 Tylenol No Notes: Do Memor ia with 2-27 not exceed l Codeine #3 09:01: 4gm/day of H ermann oral tablet 00 acetaminop hen. (Same as: Tylenol with Codeine # 3) tramadol No Notes: Not Mem oria 2- to exceed l 09:01: 400mg/day. [place] (Same As: Ultram) Saline No Notes: Memoria Flush 0.9% 11-27 (Same as: l 09:01: BD Posiflush) Insulin No Notes: Memoria regular - (Same as: l 09:: Humulin R) Roll in palms of hands gently; Do not shake vigorously . WASTE: F/P - Black; E - Municipal Trash Bin Stable for 31 days at room temperatur e Expires in days from ____Date acetaminoph No Notes: Do M emoria en - not exceed l 09:01: 4 gm/day. Ra[place] 00 (Same as: Tylenol) bisacodyl No Notes: Memori a -27 (Same As: l 09:: Dulcolax, Bisco-Lax) ondansetron No Notes: Jose Francisco [...] Weight 86.364, kg, 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/27/22 3:01:00 TANKAGE GRINDER, Duration: 3 doses or times, Stop date: 11/27/22 3:31:00 TANKAGE GRINDER, 0 Tylenol No Notes: Do Memor ia with 2-27 not exceed l Codeine #3 09:01: 4gm/day of H ermann oral tablet 00 acetaminop hen. (Same as: Tylenol with Codeine # 3) tramadol No Notes: Not Mem oria 2- to exceed l 09:01: 400mg/day. [place] 00 (Same As: Ultram) Saline No Notes: Memoria Flush 0.9% 11-27 (Same as: l 09:: BD [place] 00 Posiflush) Insulin No Notes: Memoria regular - (Same as: l 09:: Humulin R) Roll in palms of hands gently; Do not shake vigorously . WASTE: F/P - Black; E - Municipal Trash Bin Stable for 31 days at room temperatur e Expires in days from ____Date acetaminoph No Notes: Do M emoria en - not exceed l 09:01: 4 gm/day. [place] 00 (Same as: Tylenol) bisacodyl No Notes: Memori a 2-27 (Same As: l 09:: Dulcolax, Bisco-Lax) ondansetron No Notes: Jose Francisco zhang -27 (Same as: l 09:: Zofran) MEDICATION WASTE Product Size: 4 mg Product Wasted: ___ mg hydrALAZINE No Notes: Jose Francisco zhang 2-27 (Same as: l 09:: Apresoline ) Push over 5 minutes labetalol No 10 mg, 2 Jose Francisco zhang 2-27 mL, Route: l 09:: IVP, Drug form: INJ, Q15Min, Dosing Weight 86.364, kg, 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/27/22 3:01:00 TANKAGE GRINDER, Duration: 3 doses or times, Stop date: 11/27/22 3:31:00 TANKAGE GRINDER, 0 Tylenol No Notes: Do Memor ia with 2-27 not exceed l Codeine #3 09:01: 4gm/day of H ermann oral tablet 00 acetaminop hen. (Same as: Tylenol with Codeine # 3) tramadol No Notes: Not Mem oria 2-27 to exceed l 09:01: 400mg/day. [place] (Same As: Ultram) Saline No Notes: Memoria [...] acetaminoph No Notes: Do M emoria en 11-27 not exceed l 09:: 4 gm/day. (Same as: Tylenol) bisacodyl No Notes: Memori a 2-27 (Same As: l 09:: Dulcolax, Bisco-Lax) ondansetron No Notes: Jose Francisco [...] Weight 86.364, kg, 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/27/22 3:01:00 TANKAGE GRINDER, Duration: 3 doses or times, Stop date: 11/27/22 3:31:00 TANKAGE GRINDER, 0 Tylenol No Notes: Do Memor ia with 2-27 not exceed l Codeine #3 09:01: 4gm/day of H ermann oral tablet 00 acetaminop hen. (Same as: Tylenol with Codeine # 3) tramadol No Notes: Not Mem oria 11-27 to exceed l 09:: 400mg/day. [place] 00 (Same As: Ultram) Saline No Notes: Memoria Flush 0.9% 11-27 (Same as: l 09:01: BD Posiflush) Insulin No Notes: Memoria regular 11-27 (Same as: l 09:01: Humulin R) Roll [...] kg, Priority: STAT, 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/27/22 0:27:00 TANKAGE GRINDER, Stop date: 11/27/22 0:27:00 TANKAGE GRINDER Keppra 0 No 1,000 mg, Memori a 11-27 Route: l 06:27: IVPB, Drug form: INJ, ONCE, Dosing Weight 86.364, kg, Loading Dose, Priority: STAT, 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/27/22 0:27:00 TANKAGE GRINDER, Stop date: 11/27/22 0:27:00 TANKAGE GRINDER acetaminoph 0 No 1,000 mg, M emoria en 11-27 Route: PO, l 06:27: Drug form: [place] 00 TAB, ONCE, Dosing Weight 86.364, kg, Priority: STAT, 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/27/22 0:27:00 TANKAGE GRINDER, Stop date: 11/27/22 0:27:00 TANKAGE GRINDER Keppra 2022-0 No 1,000 mg, Memori a 11-27 Route: l 06:27: IVPB, Drug Raul 00 form: INJ, ONCE, Dosing Weight 86.364, kg, Loading Dose, Priority: STAT, 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/27/22 0:27:00 TANKAGE GRINDER, Stop date: 11/27/22 0:27:00 TANKAGE GRINDER acetaminoph 2023-0 No 1,000 mg, M emoria en 11-27 Route: PO, l 06:27: Drug form: [place] 00 TAB, ONCE, Dosing Weight 86.364, kg, Priority: STAT, 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/27/22 0:27:00 TANKAGE GRINDER, Stop date: 11/27/22 0:27:00 TANKAGE GRINDER Keppra 2023-0 No 1,000 mg, Memori a 11-27 Route: l 06:27: IVPB, Drug Raul 00 form: INJ, ONCE, Dosing Weight 86.364, kg, Loading Dose, Priority: STAT, 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/27/22 0:27:00 TANKAGE GRINDER, Stop date: 11/27/22 0:27:00 TANKAGE GRINDER acetaminoph 2023-0 No 1,000 mg, M emoria en 11-27 Route: PO, l 06:27: Drug form: [place] 00 TAB, ONCE, Dosing Weight 86.364, kg, Priority: STAT, 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/27/22 0:27:00 TANKAGE GRINDER, Stop date: 11/27/22 0:27:00 TANKAGE GRINDER Keppra 2023-0 No 1,000 mg, Memori a 11-27 Route: l 06:27: IVPB, Drug Raul 00 form: INJ, ONCE, Dosing Weight 86.364, kg, Loading Dose, Priority: STAT, 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/27/22 0:27:00 TANKAGE GRINDER, Stop date: 11/27/22 0:27:00 TANKAGE GRINDER acetaminoph 2023-0 No 1,000 mg, M emoria en 11-27 Route: PO, l 06:27: Drug form: [place] 00 TAB, ONCE, Dosing Weight 86.364, kg, Priority: STAT, 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/27/22 0:27:00 TANKAGE GRINDER, Stop date: 11/27/22 0:27:00 TANKAGE GRINDER Keppra 2023-0 No 1,000 mg, Memori a 11-27 Route: l 06:27: IVPB, Drug Raul 00 form: INJ, ONCE, Dosing Weight 86.364, kg, Loading Dose, Priority: STAT, 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/27/22 0:27:00 TANKAGE GRINDER, Stop date: 11/27/22 0:27:00 TANKAGE GRINDER acetaminoph 2023-0 No 1,000 mg, M stef en 11-27 Route: PO, l 06:27: Drug form: [place] 00 TAB, ONCE, Dosing Weight 86.364, kg, Priority: STAT, 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/27/22 0:27:00 TANKAGE GRINDER, Stop date: 11/27/22 0:27:00 TANKAGE GRINDER Keppra No 1,000 mg, Memori a 11-27 Route: l 06:27: IVPB, Drug Raul 00 form: INJ, ONCE, Dosing Weight 86.364, kg, Loading Dose, Priority: STAT, 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/27/22 0:27:00 TANKAGE GRINDER, Stop date: 11/27/22 0:27:00 TANKAGE GRINDER heparin No Notes: Memoria 5000 2-22 porcine l units/mL 22:00: heparin Ajay n injectable 00 solution heparin No Notes: Memoria 5000 2-22 porcine l units/mL 22:00: heparin Ajay n injectable 00 solution heparin No Notes: Memoria 5000 2-22 porcine l units/mL 22:00: heparin Ajay n injectable 00 solution heparin 0 No Notes: Memoria 5000 2-22 porcine l units/mL 22:00: heparin Ajay n injectable 00 solution heparin 0 No Notes: Memoria 5000 2-22 porcine l units/mL 22:00: heparin Ajay n injectable 00 solution heparin 2022-0 No Notes: Memoria 5000 2-22 porcine l units/mL 22:00: heparin Ajay n injectable 00 solution Tylenol Yes 1 tab, PO, Jose Francisco zhang with 2-22 Q6H, PRN l Codeine #3 19:14: Pain Score H ermann oral tablet 00 4-6, X 3 day, # 12 tab, 0 Refill(s), Pharmacy: [facility] cy #[id number], 149.86, cm, 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, Height, 86.364, kg, 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, Weight Tylenol 0 No 1 tab, PO, Jose Francisco zhang with 2-22 Q6H, PRN l Codeine #3 19:14: Pain Score H ermann oral tablet 00 4-6, X 3 day, # 12 tab, 0 Refill(s), Pharmacy: [id number], 149.86, cm, 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, Height, 86.364, kg, 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, Weight Tylenol 2023-0 No 1 tab, PO, Jose Francisco zhang with 2-22 Q6H, PRN l Codeine #3 19:14: Pain Score H ermann oral tablet 00 4-6, X 3 day, # 12 tab, 0 Refill(s), Pharmacy: [facility] #[id number], 149.86, cm, 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, Height, 86.364, kg, 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, Weight Tylenol 2023-0 No 1 tab, PO, Jose Francisco zhang with 2-22 Q6H, PRN l Codeine #3 19:14: Pain Score H ermann oral tablet 00 4-6, X 3 day, # 12 tab, 0 Refill(s), Pharmacy: [facility] cy #[id number], 149.86, cm, 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, Height, 86.364, kg, 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, Weight Tylenol 2023-0 No 1 tab, PO, Jose Francisco zhang with 2-22 Q6H, PRN l Codeine #3 19:14: Pain Score H ermann oral tablet 00 4-6, X 3 day, # 12 tab, 0 Refill(s), Pharmacy: [facility] #[id number], 149.86, cm, 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, Height, 86.364, kg, 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, Weight Tylenol 2023-0 No 1 tab, PO, Jose Francisco zhang with 2-22 Q6H, PRN l Codeine #3 19:14: Pain Score H ermann oral tablet 00 4-6, X 3 day, # 12 tab, 0 Refill(s), Pharmacy: [facility] cy #[id number], 149.86, cm, 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, Height, 86.364, kg, 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, Weight Tylenol 2023-0 Yes 1 tab, PO, Jose Francisco zhang with 2-22 Q6H, PRN l Codeine #3 19:14: Pain Score H ermann oral tablet 00 4-6, X 3 day, # 12 tab, 0 Refill(s), Pharmacy: [facility] cy #[id number], 149.86, cm, 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, Height, 86.364, kg, 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, Weight Tylenol 2022-0 No 1 tab, PO, Jose Francisco zhang with 2-22 Q6H, PRN l Codeine #3 19:14: Pain Score H ermann oral tablet 00 4-6, X 3 day, # 12 tab, 0 Refill(s), Pharmacy: [facility] cy #[id number], 149.86, cm, 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, Height, 86.364, kg, 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, Weight gabapentin 2022-0 Yes 100 mg = 1 M emoria 100 mg oral 2-22 cap, PO, l capsule 19:13: Daily, # Ajay n 00 10 cap, 0 Refill(s), Pharmacy: [facility] cy #[id number], 149.86, cm, 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, Height, 86.364, kg, 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, Weight Keppra 500 2022-0 Yes 500 mg = 1 M emoria mg oral 2-22 tab, PO, l tablet 19:13: Q12H, # 12 Jessie nn 00 tab, 0 Refill(s), Pharmacy: [facility] cy #[id number], 149.86, cm, 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, Height, 86.364, kg, 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, Weight methocarbam 2022-0 Yes 500 mg = 1 Memoria ol 500 mg 2-22 tab, PO, l oral tablet 19:13: Q8H, X 10 H ermann 00 day, # 30 tab, 0 Refill(s), Pharmacy: [facility] cy #[id number], 149.86, cm, 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, Height, 86.364, kg, 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, Weight Zofran 4 mg 3-0 Yes 4 mg = 1 Me moria oral tablet 2-22 tab, PO, l 19:13: Q8H, PRN [place] 00 Nausea/vom iting, X 7 day, # 21 tab, 0 Refill(s), Pharmacy: [facility] #[id number], 149.86, cm, 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, Height, 86.364, kg, 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, Weight gabapentin 2022-0 Yes 100 mg = 1 M emoria 100 mg oral 2-22 cap, PO, l capsule 19:13: Daily, # Ajay n 00 10 cap, 0 Refill(s), Pharmacy: [facility] cy #[id number], 149.86, cm, 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, Height, 86.364, kg, 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, Weight Keppra 500 2022-0 Yes 500 mg = 1 M emoria mg oral 2-22 tab, PO, l tablet 19:13: Q12H, # 12 Jessie nn 00 tab, 0 Refill(s), Pharmacy: [facility] #[id number], 149.86, cm, 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, Height, 86.364, kg, 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, Weight methocarbam 2022-0 Yes 500 mg = 1 Memoria ol 500 mg 2-22 tab, PO, l oral tablet 19:13: Q8H, X 10 H ermann 00 day, # 30 tab, 0 Refill(s), Pharmacy: [facility] #[id number], 149.86, cm, 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, Height, 86.364, kg, 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, Weight Zofran 4 mg 3-0 Yes 4 mg = 1 Me moria oral tablet 2-22 tab, PO, l 19:13: Q8H, PRN Raul 00 Nausea/vom iting, X 7 day, # 21 tab, 0 Refill(s), Pharmacy: [facility] cy #[id number], 149.86, cm, 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, Height, 86.364, kg, 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, Weight gabapentin 2022-0 Yes 100 mg = 1 M emoria 100 mg oral 2-22 cap, PO, l capsule 19:13: Daily, # Ajay n 00 10 cap, 0 Refill(s), Pharmacy: [facility] cy #[id number], 149.86, cm, 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, Height, 86.364, kg, 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, Weight Keppra 500 2022-0 Yes 500 mg = 1 M emoria mg oral 2-22 tab, PO, l tablet 19:13: Q12H, # 12 Jessie nn 00 tab, 0 Refill(s), Pharmacy: [facility] cy #[id number], 149.86, cm, 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, Height, 86.364, kg, 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, Weight methocarbam 2022-0 Yes 500 mg = 1 Memoria ol 500 mg 2-22 tab, PO, l oral tablet 19:13: Q8H, X 10 H ermann 00 day, # 30 tab, 0 Refill(s), Pharmacy: [facility] cy #[id number], 149.86, cm, 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, Height, 86.364, kg, 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, Weight Zofran 4 mg 2022-0 Yes 4 mg = 1 Me moria oral tablet 2-22 tab, PO, l 19:13: Q8H, PRN [place] 00 Nausea/vom iting, X 7 day, # 21 tab, 0 Refill(s), Pharmacy: [facility] cy #[id number], 149.86, cm, 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, Height, 86.364, kg, 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, Weight gabapentin 2022-0 Yes 100 mg = 1 M emoria 100 mg oral 2-22 cap, PO, l capsule 19:13: Daily, # Ajay n 00 10 cap, 0 Refill(s), Pharmacy: [facility] cy #[id number], 149.86, cm, 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, 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, 86.364, kg, 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, Weight Keppra 500 2022-0 Yes 500 mg = 1 M emoria mg oral 2-22 tab, PO, l tablet 19:13: Q12H, # 12 Jessie nn 00 tab, 0 Refill(s), Pharmacy: [facility] cy #[id number], 149.86, cm, 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, Height, 86.364, kg, 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, Weight methocarbam 2022-0 Yes 500 mg = 1 Memoria ol 500 mg 2-22 tab, PO, l oral tablet 19:13: Q8H, X 10 H ermann 00 day, # 30 tab, 0 Refill(s), Pharmacy: [facility] cy #[id number], 149.86, cm, 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, Height, 86.364, kg, 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, Weight Zofran 4 mg 2022-0 Yes 4 mg = 1 Me moria oral tablet 2-22 tab, PO, l 19:13: Q8H, PRN Raul 00 Nausea/vom iting, X 7 day, # 21 tab, 0 Refill(s), Pharmacy: [facility] cy #[id number], 149.86, cm, 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, Height, 86.364, kg, 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, Weight gabapentin 2022-0 Yes 100 mg = 1 M emoria 100 mg oral 2-22 cap, PO, l capsule 19:13: Daily, # Ajay n 00 10 cap, 0 Refill(s), Pharmacy: [facility] #[id number], 149.86, cm, 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, Height, 86.364, kg, 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, Weight Keppra 500 2022-0 Yes 500 mg = 1 M emoria mg oral 2-22 tab, PO, l tablet 19:13: Q12H, # 12 Jessie nn 00 tab, 0 Refill(s), Pharmacy: [facility] #[id number], 149.86, cm, 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, Height, 86.364, kg, 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, Weight methocarbam 2022-0 Yes 500 mg = 1 Memoria ol 500 mg 2-22 tab, PO, l oral tablet 19:13: Q8H, X 10 H ermann 00 day, # 30 tab, 0 Refill(s), Pharmacy: [facility] #[id number], 149.86, cm, 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, Height, 86.364, kg, 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, Weight Zofran 4 mg 2022-0 Yes 4 mg = 1 Me moria oral tablet 2-22 tab, PO, l 19:13: Q8H, PRN Raul 00 Nausea/vom iting, X 7 day, # 21 tab, 0 Refill(s), Pharmacy: [facility] #[id number], 149.86, cm, 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, Height, 86.364, kg, 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, Weight gabapentin 2022-0 Yes 100 mg = 1 M emoria 100 mg oral 2-22 cap, PO, l capsule 19:13: Daily, # Ajay n 00 10 cap, 0 Refill(s), Pharmacy: [facility] #[id number], 149.86, cm, 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, Height, 86.364, kg, 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, Weight Keppra 500 2022-0 Yes 500 mg = 1 M emoria mg oral 2-22 tab, PO, l tablet 19:13: Q12H, # 12 Jessie nn 00 tab, 0 Refill(s), Pharmacy: [facility] #[id number], 149.86, cm, 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, Height, 86.364, kg, 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, Weight methocarbam 3-0 Yes 500 mg = 1 Memoria ol 500 mg 2-22 tab, PO, l oral tablet 19:13: Q8H, X 10 H ermann 00 day, # 30 tab, 0 Refill(s), Pharmacy: [facility] #[id number], 149.86, cm, 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, Height, 86.364, kg, 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, Weight Zofran 4 mg 3-0 Yes 4 mg = 1 Me moria oral tablet 2-22 tab, PO, l 19:13: Q8H, PRN [place] 00 Nausea/vom iting, X 7 day, # 21 tab, 0 Refill(s), Pharmacy: [facility] #[id number], 149.86, cm, 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, Height, 86.364, kg, 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, Weight gabapentin 2022-0 Yes 100 mg = 1 M emoria 100 mg oral 2-22 cap, PO, l capsule 19:13: Daily, # Ajay n 00 10 cap, 0 Refill(s), Pharmacy: [facility] #[id number], 149.86, cm, 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, Height, 86.364, kg, 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, Weight Keppra 500 2022-0 Yes 500 mg = 1 M emoria mg oral 2-22 tab, PO, l tablet 19:13: Q12H, # 12 Jessie nn 00 tab, 0 Refill(s), Pharmacy: [facility] #[id number], 149.86, cm, 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, Height, 86.364, kg, 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, Weight methocarbam 2022-0 Yes 500 mg = 1 Memoria ol 500 mg 2-22 tab, PO, l oral tablet 19:13: Q8H, X 10 H ermann day, # 30 tab, 0 Refill(s), Pharmacy: [facility] #[id number], 149.86, cm, 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, Height, 86.364, kg, 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, Weight Zofran 4 mg 3-0 Yes 4 mg = 1 Me moria oral tablet 2-22 tab, PO, l 19:13: Q8H, PRN [place] 00 Nausea/vom iting, X 7 day, # 21 tab, 0 Refill(s), Pharmacy: [facility] #[id number], 149.86, cm, 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, Height, 86.364, kg, 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, Weight gabapentin 2022-0 Yes 100 mg = 1 M emoria 100 mg oral 2-22 cap, PO, l capsule 19:13: Daily, # Ajay n 00 10 cap, 0 Refill(s), Pharmacy: [facility] #[id number], 149.86, cm, 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, Height, 86.364, kg, 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, Weight Keppra 500 2022-0 Yes 500 mg = 1 M emoria mg oral 2-22 tab, PO, l tablet 19:13: Q12H, # 12 Jessie nn 00 tab, 0 Refill(s), Pharmacy: [facility] #[id number], 149.86, cm, 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, Height, 86.364, kg, 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, Weight methocarbam 0 Yes 500 mg = 1 Memoria ol 500 mg 2-22 tab, PO, l oral tablet 19:13: Q8H, X 10 H ermann 00 day, # 30 tab, 0 Refill(s), Pharmacy: [facility] #[id number], 149.86, cm, 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, Height, 86.364, kg, 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, Weight Zofran 4 mg 2022-0 Yes 4 mg = 1 Me moria oral tablet 2-22 tab, PO, l 19:13: Q8H, PRN Raul 00 Nausea/vom iting, X 7 day, # 21 tab, 0 Refill(s), Pharmacy: [facility] #[id number], 149.86, cm, 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, Height, 86.364, kg, 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, Weight donepezil 2022-0 No Notes: Memori a 2-22 (Same as: l 15:00: Aricept) [place] 00 ferrous No Notes: Memoria sulfate 2-22 Give with l 15:00: food. "Do Raul 00 Not Crush" Lasix No Notes: Memoria 2-22 (Same as: l 15:00: Lasix) May Raul 00 cause GI upset. Give with food or milk. levothyroxi No Notes: Jose Francisco zhang ne 2-22 Take 1 l 15:00: hour [place] 00 before or 2 hours after meal; [...] 00 mg, Route: PO, Daily, 11/22/22 9:00:00 TANKAGE GRINDER, Duration: 30 day, Stop date: 12/21/22 9:00:00 CDT donepezil No Notes: Memori a 2-22 (Same as: l 15:00: Aricept) Raul 00 ferrous No Notes: Memoria sulfate 2-22 Give with l 15:00: food. "Do Raul 00 Not Crush" Lasix No Notes: Memoria 2-22 (Same as: l 15:00: Lasix) May cause GI upset. Give with food or [...] 00 mg, Route: PO, Daily, 11/22/22 9:00:00 TANKAGE GRINDER, Duration: 30 day, Stop date: 12/21/22 9:00:00 CDT donepezil No Notes: Memori a 2-22 (Same as: l 15:00: Aricept) ferrous No Notes: Memoria sulfate 2-22 Give with l 15:00: food. "Do Not Crush" Lasix No Notes: Memoria 2-22 (Same as: l 15:00: Lasix) May cause GI upset. Give with food or milk. levothyroxi No Notes: Jose Francisco zhang ne 2-22 Take 1 l 15:00: hour before or 2 hours after meal; [...] 00 mg, Route: PO, Daily, 11/22/22 9:00:00 TANKAGE GRINDER, Duration: 30 day, Stop date: 12/21/22 9:00:00 CDT donepezil No Notes: Memori a 2-22 (Same as: l 15:00: Aricept) Raul ferrous No Notes: Memoria sulfate 2-22 Give with l 15:00: food. "Do Not Crush" Lasix No Notes: Memoria 2-22 (Same as: l 15:00: Lasix) May cause GI upset. Give with food or [...] 00 mg, Route: PO, Daily, 11/22/22 9:00:00 TANKAGE GRINDER, Duration: 30 day, Stop date: 12/21/22 9:00:00 CDT donepezil No Notes: Memori a 2-22 (Same as: l 15:00: Aricept) [place] 00 ferrous No Notes: Memoria sulfate 2-22 Give with l 15:00: food. "Do Raul 00 Not Crush" Lasix No Notes: Memoria 2-22 (Same as: l 15:00: Lasix) May cause GI upset. Give with food or milk. levothyroxi No Notes: Jose Francisco zhang ne 2-22 Take 1 l 15:00: hour [place] 00 before or 2 hours after meal; [...] 00 mg, Route: PO, Daily, 11/22/22 9:00:00 TANKAGE GRINDER, Duration: 30 day, Stop date: 12/21/22 9:00:00 CDT donepezil No Notes: Memori a 2-22 (Same as: l 15:00: Aricept) [place] 00 ferrous No Notes: Memoria sulfate 2-22 Give with l 15:00: food. "Do Not Crush" Lasix No Notes: Memoria 2-22 (Same as: l 15:00: Lasix) May cause GI upset. Give with food or milk. levothyroxi No Notes: Jose Francisco zhang ne 2-22 Take 1 l 15:00: hour before or 2 hours after meal; Enteral feeds may interefere with the absorption of this medication .(Same as:Levothr oid) NIFEdipine No Notes: Memor ia 30 mg oral 2-22 (Same as: l tablet, 15:00: Adalat CC, Herm bernie extended Procardia release XL) Give on empty stomach. Take 1 hour before or 2 hours after meal; "Avoid grapefruit and grapefruit juice". Do not crush Kerendia 10 No Kerendia Me moria mg oral 2-22 10 mg oral l tablet 15:00: tablet, 10 Jessie nn 00 mg, Route: PO, Daily, 11/22/22 9:00:00 TANKAGE GRINDER, Duration: 30 day, Stop date: 12/21/22 9:00:00 CDT Keppra 500 No Notes: Memor ia mg oral 2-22 (Same l tablet 03:00: as:Keppra) Jessie nn 00 Coreg No Notes: Memoria 2-22 Give with l 03:00: food. Raul (Same As: Coreg) Lexapro No 20 mg, 2 Memori a 2-22 tab, l 03:00: Route: PO, Raul Drug form: TAB, Q12H, Dosing Weight 86.364, kg, 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/22 21:00:00 TANKAGE GRINDER, Duration: 30 day, Stop date: 12/21/22 9:00:00 CDT, 0 Pepcid 40 2022-0 No Notes: Memori a mg oral 2-22 (Same as: l tablet 03:00: Pepcid) lovastatin 2022-0 No 20 mg, 1 Mem oria 2-22 tab, l 03:00: Route: PO, Drug form: TAB, Bedtime, Dosing Weight 86.364, kg, 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/22 21:00:00 TANKAGE GRINDER, Duration: 30 day, Stop date: 12/20/22 21:00:00 CDT primidone 2022-0 No 50 mg, 1 Jose Francisco zhang 2-22 tab, l 03:00: Route: PO, Drug form: TAB, Bedtime, Dosing Weight 86.364, kg, 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/22 21:00:00 TANKAGE GRINDER, Duration: 30 day, Stop date: 12/20/22 21:00:00 CDT, 0 rOPINIRole 2022-0 No 4 mg, 2 Jose Francisco zhang 2-22 tab, l 03:00: Route: PO, Drug form: TAB, Q12H, Dosing Weight 86.364, kg, 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/22 21:00:00 TANKAGE GRINDER, Duration: 30 day, Stop date: 12/21/22 9:00:00 CDT, 0 Lipitor 2022-0 No Notes: Memoria 2-22 (Same As: l 03:00: Lipitor) Keppra 500 0 No Notes: Memor ia mg oral 2-22 (Same l tablet 03:00: as:Keppra) Coreg 0 No Notes: Memoria 2-22 Give with l 03:00: food. (Same As: Coreg) Lexapro 2022-0 No 20 mg, 2 Memori a 2-22 tab, l 03:00: Route: PO, Drug form: TAB, Q12H, Dosing Weight 86.364, kg, 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/22 21:00:00 TANKAGE GRINDER, Duration: 30 day, Stop date: 12/21/22 9:00:00 CDT, 0 Pepcid 40 2022-0 No Notes: Memori a mg oral 2-22 (Same as: l tablet 03:00: Pepcid) lovastatin 2022-0 No 20 mg, 1 Mem oria 2-22 tab, l 03:00: Route: PO, Drug form: TAB, Bedtime, Dosing Weight 86.364, kg, 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/22 21:00:00 TANKAGE GRINDER, Duration: 30 day, Stop date: 12/20/22 21:00:00 CDT primidone 2022-0 No 50 mg, 1 Jose Francisco zhang 2-22 tab, l 03:00: Route: PO, Drug form: TAB, Bedtime, Dosing Weight 86.364, kg, 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/22 21:00:00 TANKAGE GRINDER, Duration: 30 day, Stop date: 12/20/22 21:00:00 CDT, 0 rOPINIRole 2022-0 No 4 mg, 2 Jose Francisco zhang 2-22 tab, l 03:00: Route: PO, Drug form: TAB, Q12H, Dosing Weight 86.364, kg, 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/22 21:00:00 TANKAGE GRINDER, Duration: 30 day, Stop date: 12/21/22 9:00:00 [...] Weight 86.364, kg, 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/22 21:00:00 TANKAGE GRINDER, Duration: 30 day, Stop date: 12/21/22 9:00:00 CDT, 0 Pepcid 40 0 No Notes: Memori a mg oral 2-22 (Same as: l tablet 03:00: Pepcid) lovastatin 2022-0 No 20 mg, 1 Mem oria 2-22 tab, l 03:00: Route: PO, Drug form: TAB, Bedtime, Dosing Weight 86.364, kg, 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/22 21:00:00 TANKAGE GRINDER, Duration: 30 day, Stop date: 12/20/22 21:00:00 CDT primidone 2022-0 No 50 mg, 1 Jose Francisco zhang 2-22 tab, l 03:00: Route: PO, Drug form: TAB, Bedtime, Dosing Weight 86.364, kg, 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/22 21:00:00 TANKAGE GRINDER, Duration: 30 day, Stop date: 12/20/22 21:00:00 CDT, 0 rOPINIRole 2022-0 No 4 mg, 2 Jose Francisco zhang 2-22 tab, l 03:00: Route: PO, Drug form: TAB, Q12H, Dosing Weight 86.364, kg, 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/22 21:00:00 TANKAGE GRINDER, Duration: 30 day, Stop date: 12/21/22 9:00:00 [...] Weight 86.364, kg, 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/22 21:00:00 TANKAGE GRINDER, Duration: 30 day, Stop date: 12/21/22 9:00:00 CDT, 0 Pepcid 40 0 No Notes: Memori a mg oral 2-22 (Same as: l tablet 03:00: Pepcid) lovastatin 0 No 20 mg, 1 Mem oria 2-22 tab, l 03:00: Route: PO, Drug form: TAB, Bedtime, Dosing Weight 86.364, kg, 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/22 21:00:00 TANKAGE GRINDER, Duration: 30 day, Stop date: 12/20/22 21:00:00 CDT primidone 0 No 50 mg, 1 Jose Francisco zhang 2-22 tab, l 03:00: Route: PO, Drug form: TAB, Bedtime, Dosing Weight 86.364, kg, 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/22 21:00:00 TANKAGE GRINDER, Duration: 30 day, Stop date: 12/20/22 21:00:00 CDT, 0 rOPINIRole 0 No 4 mg, 2 Jose Francisco zhang 2-22 tab, l 03:00: Route: PO, Drug form: TAB, Q12H, Dosing Weight 86.364, kg, 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/22 21:00:00 TANKAGE GRINDER, Duration: 30 day, Stop date: 12/21/22 9:00:00 CDT, 0 Lipitor 0 No Notes: Memoria 2-22 (Same As: l 03:00: Lipitor) Keppra 500 No Notes: Memor ia mg oral 2-22 (Same l tablet 03:00: as:Keppra) Jessie nn Coreg No Notes: Memoria 2-22 Give with l 03:00: food. (Same As: Coreg) Lexapro 0 No 20 mg, 2 Memori a 2-22 tab, l 03:00: Route: PO, Drug form: TAB, Q12H, Dosing Weight 86.364, kg, 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/22 21:00:00 TANKAGE GRINDER, Duration: 30 day, Stop date: 12/21/22 9:00:00 CDT, 0 Pepcid 40 0 No Notes: Memori a mg oral 2-22 (Same as: l tablet 03:00: Pepcid) lovastatin 0 No 20 mg, 1 Mem oria 2-22 tab, l 03:00: Route: PO, Drug form: TAB, Bedtime, Dosing Weight 86.364, kg, 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/22 21:00:00 TANKAGE GRINDER, Duration: 30 day, Stop date: 12/20/22 21:00:00 CDT primidone 2022-0 No 50 mg, 1 Jose Francisco zhang 2-22 tab, l 03:00: Route: PO, Drug form: TAB, Bedtime, Dosing Weight 86.364, kg, 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/22 21:00:00 TANKAGE GRINDER, Duration: 30 day, Stop date: 12/20/22 21:00:00 CDT, 0 rOPINIRole 2022-0 No 4 mg, 2 Jose Francisco zhang 2-22 tab, l 03:00: Route: PO, Drug form: TAB, Q12H, Dosing Weight 86.364, kg, 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/22 21:00:00 TANKAGE GRINDER, Duration: 30 day, Stop date: 12/21/22 9:00:00 CDT, 0 Lipitor 2022-0 No Notes: Memoria 2-22 (Same As: l 03:00: Lipitor) Keppra 500 2022-0 No Notes: Memor ia mg oral 2-22 (Same l tablet 03:00: as:Keppra) Coreg 2022-0 No Notes: Memoria 2-22 Give with l 03:00: food. (Same As: Coreg) Lexapro 2022-0 No 20 mg, 2 Memori a 2-22 tab, l 03:00: Route: PO, Drug form: TAB, Q12H, Dosing Weight 86.364, kg, 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/22 21:00:00 TANKAGE GRINDER, Duration: 30 day, Stop date: 12/21/22 9:00:00 CDT, 0 Pepcid 40 2022-0 No Notes: Memori a mg oral 2-22 (Same as: l tablet 03:00: Pepcid) lovastatin 2022-0 No 20 mg, 1 Mem oria 2-22 tab, l 03:00: Route: PO, Drug form: TAB, Bedtime, Dosing Weight 86.364, kg, 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/22 21:00:00 TANKAGE GRINDER, Duration: 30 day, Stop date: 12/20/22 21:00:00 CDT primidone 2022-0 No 50 mg, 1 Jose Francisco zhang 2-22 tab, l 03:00: Route: PO, Drug form: TAB, Bedtime, Dosing Weight 86.364, kg, 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/22 21:00:00 TANKAGE GRINDER, Duration: 30 day, Stop date: 12/20/22 21:00:00 CDT, 0 rOPINIRole 0 No 4 mg, 2 Jose Francisco zhang 2-22 tab, l 03:00: Route: PO, 00 Drug form: TAB, Q12H, Dosing Weight 86.364, kg, 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/22 21:00:00 TANKAGE GRINDER, Duration: 30 day, Stop date: 12/21/22 9:00:00 CDT, 0 Lipitor 2022-0 No Notes: Memoria 2-22 (Same As: l 03:00: Lipitor) Robaxin 0 No Notes: Memoria 2-22 (Same l 00:27: as:Robaxin [place] ) Robaxin 0 No Notes: Memoria 2-22 (Same l 00:27: as:Robaxin Raul ) Robaxin 0 No Notes: Memoria 2-22 (Same l 00:27: as:Robaxin Raul 00 ) Robaxin 2022-0 No Notes: Memoria 2-22 (Same l 00:27: as:Robaxin Raul 00 ) Robaxin 2022-0 No Notes: Memoria 2-22 (Same l 00:27: as:Robaxin [place] 00 ) Robaxin 2022-0 No Notes: Memoria 2-22 (Same l 00:27: as:Robaxin [place] 00 ) Tylenol 0 No Notes: Do Memor ia with 2-22 not exceed l Codeine #3 00:21: 4gm/day of H ermann oral tablet 00 acetaminop hen. (Same as: Tylenol with Codeine # 3) Tylenol 0 No Notes: Do Memor ia with 2-22 not exceed l Codeine #3 00:21: 4gm/day of H ermann oral tablet 00 acetaminop hen. (Same as: Tylenol with Codeine # 3) Tylenol 0 No Notes: Do Memor ia with 2-22 [...] as: l capsule 00:16: Neurontin) Herm bernie 00 normal No 1,000 mL, Memori a saline 0.9% 2-21 Rate: 75 l IV 1,000 mL 22:13: ml/hr, Herm bernie Infuse over: 13.3 hr, Route: IV, Dosing Weight 86.364 kg, Total Volume: 1,000, 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/22 16:13:00 TANKAGE GRINDER, Duration: 30 day, Stop date: 12/21/22 16:12:00 CDT, BSA: 1.93 m2, 0 normal 2023-0 No 1,000 mL, Memori a saline 0.9% 2-21 Rate: 75 l IV 1,000 mL 22:13: ml/hr, Herm bernie 00 Infuse over: 13.3 hr, Route: IV, Dosing Weight 86.364 kg, Total Volume: 1,000, 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/22 16:13:00 TANKAGE GRINDER, Duration: 30 day, Stop date: 12/21/22 16:12:00 CDT, BSA: 1.93 m2, 0 normal 2023-0 No 1,000 mL, Memori a saline 0.9% 2-21 Rate: 75 l IV 1,000 mL 22:13: ml/hr, Herm bernie 00 Infuse over: 13.3 hr, Route: IV, Dosing Weight 86.364 kg, Total Volume: 1,000, 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/22 16:13:00 TANKAGE GRINDER, Duration: 30 day, Stop date: 12/21/22 16:12:00 CDT, BSA: 1.93 m2, 0 normal 2023-0 No 1,000 mL, Memori a saline 0.9% 2-21 Rate: 75 l IV 1,000 mL 22:13: ml/hr, Herm bernie 00 Infuse over: 13.3 hr, Route: IV, Dosing Weight 86.364 kg, Total Volume: 1,000, 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/22 16:13:00 TANKAGE GRINDER, Duration: 30 day, Stop date: 12/21/22 16:12:00 CDT, BSA: 1.93 m2, 0 normal 2023-0 No 1,000 mL, Memori a saline 0.9% 2-21 Rate: 75 l IV 1,000 mL 22:13: ml/hr, Herm bernie 00 Infuse over: 13.3 hr, Route: IV, Dosing Weight 86.364 kg, Total Volume: 1,000, 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/22 16:13:00 TANKAGE GRINDER, Duration: 30 day, Stop date: 12/21/22 16:12:00 CDT, BSA: 1.93 m2, 0 normal 2023-0 No 1,000 mL, Memori a saline 0.9% 2-21 Rate: 75 l IV 1,000 mL 22:13: ml/hr, Herm bernie 00 Infuse over: 13.3 hr, Route: IV, Dosing Weight 86.364 kg, Total Volume: 1,000, 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/22 16:13:00 TANKAGE GRINDER, Duration: 30 day, Stop date: 12/21/22 16:12:00 [...] l units (1.25 18:29: 1 cap, PO, [place] mg) oral 00 qWeek, capsule then 1 cap qmonth, 0 Refill(s) Voltaren 0 Yes 2 gm, TOP, Mem oria Topical 1% 2-21 QID, PRN, l topical gel 18:29: 0 Ajay n 00 Refill(s) Vitamin D2 Yes 50,000 Memor ia 50,000 intl 2-21 IntlUnit = l units (1.25 18:29: 1 cap, PO, [place] mg) oral 00 qWeek, capsule then 1 cap qmonth, 0 Refill(s) Voltaren 0 Yes 2 gm, TOP, Mem oria Topical 1% 2-21 QID, PRN, l topical gel 18:29: 0 Ajay n 00 Refill(s) Vitamin D2 Yes 50,000 Memor ia 50,000 intl 2-21 IntlUnit = l units (1.25 18:29: 1 cap, PO, [place] mg) oral 00 qWeek, capsule then 1 cap qmonth, 0 Refill(s) Voltaren Yes 2 gm, TOP, Mem oria Topical [...] l units (1.25 18:29: 1 cap, PO, [place] mg) oral 00 qWeek, capsule then 1 cap qmonth, 0 Refill(s) fluocinonid Yes 1 appl, Mem oria e topical 2-21 TOP, BID, l 0.05% 18:28: 0 Raul solution 00 Refill(s) ketoconazol 2023-0 Yes 1 appl, Mem oria e topical 2-21 TOP, BID, l 2% cream 18:28: 0 Raul 00 Refill(s) halobetasol 2023-0 Yes 1 appl, Mem oria topical 2-21 TOP, BID, l 0.05% cream 18:28: PRN, 0 Herm bernie 00 Refill(s) fluocinonid 2023-0 Yes 1 appl, Mem oria e topical 2-21 TOP, BID, l 0.05% 18:28: 0 Raul solution 00 Refill(s) ketoconazol 2023-0 Yes 1 appl, Mem oria e topical 2-21 TOP, BID, l 2% cream 18:28: 0 [place] 00 Refill(s) halobetasol 2023-0 Yes 1 appl, Mem oria topical 2-21 TOP, BID, l 0.05% cream 18:28: PRN, 0 Herm bernie 00 Refill(s) fluocinonid 2023-0 Yes 1 appl, Mem oria e topical 2-21 TOP, BID, l 0.05% 18:28: 0 [place] solution 00 Refill(s) ketoconazol 2023-0 Yes 1 appl, Mem oria e topical 2-21 TOP, BID, l 2% cream 18:28: 0 Raul 00 Refill(s) halobetasol 3-0 Yes 1 appl, Mem oria topical 2-21 TOP, BID, l 0.05% cream 18:28: PRN, 0 Herm bernie 00 Refill(s) fluocinonid 2023-0 Yes 1 appl, Mem oria e topical 2-21 TOP, BID, l 0.05% 18:28: 0 [place] solution 00 Refill(s) ketoconazol 2023-0 Yes 1 appl, Mem oria e topical 2-21 TOP, BID, l 2% cream 18:28: 0 [place] 00 Refill(s) halobetasol 2023-0 Yes 1 appl, Mem oria topical 2-21 TOP, BID, l 0.05% cream 18:28: PRN, 0 Herm bernie 00 Refill(s) fluocinonid 2023-0 Yes 1 appl, Mem oria e topical 2-21 TOP, BID, l 0.05% 18:28: 0 Raul solution 00 Refill(s) ketoconazol 2023-0 Yes 1 appl, Mem oria e topical 2-21 TOP, BID, l 2% cream 18:28: 0 Raul 00 Refill(s) halobetasol 3-0 Yes 1 appl, Mem oria topical 2-21 TOP, BID, l 0.05% cream 18:28: PRN, 0 Herm bernie 00 Refill(s) fluocinonid 3-0 Yes 1 appl, Mem oria e topical 2-21 TOP, BID, l 0.05% 18:28: 0 Raul solution 00 Refill(s) ketoconazol 2022-0 Yes 1 appl, Mem oria e topical 2-21 TOP, BID, l 2% cream 18:28: 0 [place] 00 Refill(s) halobetasol 2022-0 Yes 1 appl, Mem oria topical 2-21 TOP, BID, l 0.05% cream 18:28: PRN, 0 Herm bernie 00 Refill(s) fluocinonid 2022-0 Yes 1 appl, Mem oria e topical 2-21 TOP, BID, l 0.05% 18:28: 0 [place] solution 00 Refill(s) ketoconazol 2022-0 Yes 1 appl, Mem oria e topical 2-21 TOP, BID, l 2% cream 18:28: 0 [place] 00 Refill(s) halobetasol 2022-0 Yes 1 appl, Mem oria topical 2-21 TOP, BID, l 0.05% cream 18:28: PRN, 0 Herm bernie 00 Refill(s) fluocinonid 2022-0 Yes 1 appl, Mem oria e topical 2-21 TOP, BID, l 0.05% 18:28: 0 [place] solution 00 Refill(s) ketoconazol 2022-0 Yes 1 appl, Mem oria e topical 2-21 TOP, BID, l 2% cream 18:28: 0 [place] 00 Refill(s) halobetasol 3-0 Yes 1 appl, Mem oria topical 2-21 TOP, BID, l 0.05% cream 18:28: PRN, 0 Herm bernie 00 Refill(s) levothyroxi 2022-0 Yes 112 Memori a ne [...] Bedtime, 0 Jessie nn 00 Refill(s) ferrous 3-0 Yes 325 mg = 1 Jose Francisco [...] 2-21 tab, PO, l 18:27: Daily, 0 [place] 00 Refill(s) Pepcid 40 2022-0 Yes 40 mg = 1 Mem oria mg oral 2-21 tab, PO, l tablet 18:27: Bedtime, 0 Jessie nn 00 Refill(s) primidone 3-0 Yes 50 mg = 1 Mem oria 50 mg oral 2-21 tab, PO, l tablet 18:27: Bedtime, 0 Jessie nn 00 Refill(s) ferrous 3-0 Yes 325 mg = 1 Jose Francisco zhang sulfate 325 2-21 tab, PO, l mg oral 18:27: Daily, 0 Ajay n enteric 00 Refill(s) coated tablet levothyroxi 2022-0 Yes 112 Memori a ne 112 mcg 2-21 microgram l (0.112 mg) 18:27: = 1 tab, Her ivory oral tablet 00 PO, Daily, 0 Refill(s) Lasix 80 mg 3-0 Yes 80 mg = 1 M emoria [...] 2-21 tab, PO, l 18:27: Daily, 0 [place] 00 Refill(s) Pepcid 40 2022-0 Yes 40 [...] 2-21 tab, PO, l 18:27: Daily, 0 [place] 00 Refill(s) Pepcid 40 2022-0 Yes 40 [...] n enteric 00 Refill(s) coated tablet levothyroxi 0 Yes 112 Memori a ne 112 mcg 2-21 microgram l (0.112 mg) 18:27: = 1 tab, Her ivory oral tablet 00 PO, Daily, 0 Refill(s) Lasix 80 mg 2022-0 Yes 80 mg = 1 M emoria oral tablet 2-21 tab, PO, l 18:27: Daily, 0 [place] 00 Refill(s) Pepcid 40 2022-0 Yes 40 [...] n enteric 00 Refill(s) coated tablet levothyroxi 0 Yes 112 Memori a ne 112 mcg 2-21 microgram l (0.112 mg) 18:27: = 1 tab, Her ivory oral tablet 00 PO, Daily, 0 Refill(s) Lasix 80 mg 2022-0 Yes 80 mg = 1 M emoria oral tablet 2-21 tab, PO, l 18:27: Daily, 0 [place] 00 Refill(s) Pepcid 40 2022-0 Yes 40 [...] 2-21 tab, PO, l 18:27: Daily, 0 [place] 00 Refill(s) Pepcid 40 Yes 40 mg [...] tab, PO, l tablet 18:26: Daily, 0 [place] 00 Refill(s) NIFEdipine 0 Yes 30 mg = 1 Me moria (Eqv-Procar 2-21 tab, PO, l afua XL) 30 18:26: Daily, 0 Her ivory mg oral 00 Refill(s) tablet, extended release Kerendia 10 Yes 10 mg = 1 M emoria mg oral 2-21 tab, PO, l tablet 18:26: Daily, 0 [place] 00 Refill(s) lovastatin 0 Yes 20 mg = 1 Me moria 20 mg oral 2-21 tab, PO, l tablet 18:26: Daily, 0 Raul 00 Refill(s) donepezil 0 Yes 10 mg = 1 Mem oria 10 mg oral 2-21 tab, PO, l tablet 18:26: Daily, 0 [place] 00 Refill(s) NIFEdipine 0 Yes 30 mg = 1 Me moria [...] tablet 18:26: Daily, 0 Raul 00 Refill(s) donepezil 2022-0 Yes 10 mg [...] tablet 18:26: Daily, 0 Raul 00 Refill(s) donepezil 2022-0 Yes 10 mg [...] tab, PO, l tablet 18:26: Daily, 0 [place] 00 Refill(s) lovastatin 2022-0 Yes 20 mg = 1 Me moria 20 mg oral 2-21 tab, PO, l tablet 18:26: Daily, 0 [place] 00 Refill(s) donepezil 2022-0 Yes 10 mg = 1 Mem oria 10 mg oral 2-21 tab, PO, l tablet 18:26: Daily, 0 [place] 00 Refill(s) NIFEdipine 2022-0 Yes 30 mg = 1 Me moria (Eqv-Procar 2-21 tab, PO, l afua XL) 30 18:26: Daily, 0 Her ivory mg oral 00 Refill(s) tablet, extended release Kerendia 10 0 Yes 10 mg = 1 M emoria mg oral 2-21 tab, PO, l tablet 18:26: Daily, 0 [place] 00 Refill(s) lovastatin 2022-0 Yes 20 mg = 1 Me moria 20 mg oral 2-21 tab, PO, l tablet 18:26: Daily, 0 Raul 00 Refill(s) donepezil 2022-0 Yes 10 mg [...] tab, PO, l tablet 18:26: Daily, 0 [place] 00 Refill(s) lovastatin 2022-0 Yes 20 mg = 1 Me moria 20 mg oral 2-21 tab, PO, l tablet 18:26: Daily, 0 Raul 00 Refill(s) donepezil 2022-0 Yes 10 mg = 1 Mem oria 10 mg oral 2-21 tab, PO, l tablet 18:26: Daily, 0 [place] 00 Refill(s) NIFEdipine 2022-0 Yes 30 mg [...] tab, PO, l tablet 18:26: Daily, 0 [place] 00 Refill(s) donepezil 2022-0 Yes 10 mg = 1 Mem oria 10 mg oral 2-21 tab, PO, l tablet 18:26: Daily, 0 [place] 00 Refill(s) NIFEdipine 2022-0 Yes 30 mg = 1 Me moria (Eqv-Procar 2-21 tab, PO, l afua XL) 30 18:26: Daily, 0 Her ivory mg oral 00 Refill(s) tablet, extended release Kerendia 10 2022-0 Yes 10 mg = 1 M emoria mg oral 2-21 tab, PO, l tablet 18:26: Daily, 0 [place] 00 Refill(s) lovastatin 2022-0 Yes 20 mg = 1 Me moria 20 mg oral 2-21 tab, PO, l tablet 18:26: Daily, 0 [place] 00 Refill(s) Coreg 25 mg 2022-0 Yes 25 mg = 1 M emoria oral tablet 2-21 tab, PO, l 18:25: BID, 0 [place] 00 Refill(s) Lexapro 20 2022-0 Yes 20 [...] 2-21 tab, PO, l 18:25: BID, 0 [place] 00 Refill(s) Lexapro 20 2022-0 Yes 20 [...] 2-21 tab, PO, l 18:25: BID, 0 [place] 00 Refill(s) Lexapro 20 2022-0 Yes 20 mg = 1 Me moria mg oral 2-21 tab, PO, l tablet 18:25: BID, 0 [place] 00 Refill(s) rOPINIRole 2023-0 Yes 4 mg = 1 Mem oria 4 mg oral 2-21 tab, PO, l tablet 18:25: BID, 0 Raul 00 Refill(s) Coreg 25 mg 3-0 Yes 25 mg = 1 M emoria oral tablet 2-21 tab, PO, l 18:25: BID, 0 Raul 00 Refill(s) Lexapro 20 2023-0 Yes 20 mg = 1 Me moria mg oral 2-21 tab, PO, l tablet 18:25: BID, 0 [place] 00 Refill(s) rOPINIRole 2023-0 Yes 4 mg = 1 Mem oria 4 mg oral 2-21 tab, PO, l tablet 18:25: BID, 0 [place] 00 Refill(s) Coreg 25 mg 3-0 Yes 25 mg = 1 M emoria oral tablet 2-21 tab, PO, l 18:25: BID, 0 [place] 00 Refill(s) Lexapro 20 3-0 Yes 20 mg = 1 Me moria mg oral 2-21 tab, PO, l tablet 18:25: BID, 0 Raul 00 Refill(s) rOPINIRole 2023-0 Yes 4 mg = 1 Mem oria 4 mg oral 2-21 tab, PO, l tablet 18:25: BID, 0 Raul 00 Refill(s) Coreg 25 mg 3-0 Yes 25 mg = 1 M emoria oral tablet 2-21 tab, PO, l 18:25: BID, 0 [place] 00 Refill(s) Lexapro 20 2023-0 Yes 20 mg = 1 Me moria mg oral 2-21 tab, PO, l tablet 18:25: BID, 0 [place] 00 Refill(s) rOPINIRole 2023-0 Yes 4 mg = 1 Mem oria 4 mg oral 2-21 tab, PO, l tablet 18:25: BID, 0 [place] 00 Refill(s) Coreg 25 mg 2023-0 Yes [...] tab, PO, l tablet 18:25: BID, 0 [place] 00 Refill(s) Coreg 25 mg 2023-0 Yes 25 mg = 1 M emoria oral tablet 2-21 tab, PO, l 18:25: BID, 0 Raul 00 Refill(s) Lexapro 20 2023-0 Yes 20 mg = 1 Me moria mg oral 2-21 tab, PO, l tablet 18:25: BID, 0 [place] 00 Refill(s) rOPINIRole 2023-0 Yes 4 mg = 1 Mem oria 4 mg oral 2-21 tab, PO, l tablet 18:25: BID, 0 [place] 00 Refill(s) pantoprazol 2023-0 Yes 40 mg = 1 M emoria e 40 mg 2-21 tab, PO, l oral 18:24: BID, 0 [place] enteric 00 Refill(s) coated tablet pantoprazol 2023-0 Yes 40 mg = 1 M emoria e 40 mg 2-21 tab, PO, l oral 18:24: BID, 0 Ra[facility] enteric 00 Refill(s) coated tablet pantoprazol 2023-0 Yes 40 mg = 1 M emoria e 40 mg 2-21 tab, PO, l oral 18:24: BID, 0 [place] enteric 00 Refill(s) coated tablet pantoprazol 2023-0 Yes 40 mg = 1 M emoria e 40 mg 2-21 tab, PO, l oral 18:24: BID, 0 [place] enteric 00 Refill(s) coated tablet pantoprazol 2023-0 Yes 40 mg = 1 M emoria e 40 mg 2-21 tab, PO, l oral 18:24: BID, 0 [facility] enteric 00 Refill(s) coated tablet pantoprazol 2023-0 Yes 40 mg = 1 M emoria e 40 mg 2-21 tab, PO, l oral 18:24: BID, 0 [place] enteric 00 Refill(s) coated tablet pantoprazol 2023-0 Yes 40 mg = 1 M emoria e 40 mg 2-21 tab, PO, l oral 18:24: BID, 0 [facility] enteric 00 Refill(s) coated tablet pantoprazol 3-0 Yes 40 mg = 1 M emoria e 40 mg 2-21 tab, PO, l oral 18:24: BID, 0 [facility] enteric 00 Refill(s) coated tablet Wellbutrin 2023-0 Yes 150 mg = 1 M emoria SR 150 2-21 tab, PO, l mg/12 hours 18:23: BID, 0 Herm bernie oral 00 Refill(s) tablet, extended release Wellbutrin 2023-0 Yes 150 mg = 1 M emoria SR 150 2-21 tab, PO, l mg/12 hours 18:23: BID, 0 Herm bernie oral 00 Refill(s) tablet, extended release Wellbutrin 2023-0 Yes 150 mg = 1 M emoria SR 150 2-21 tab, PO, l mg/12 hours 18:23: BID, 0 Herm bernie oral 00 Refill(s) tablet, extended release Wellbutrin 2023-0 Yes 150 mg = 1 M emoria SR 150 2-21 tab, PO, l mg/12 hours 18:23: BID, 0 Herm bernie oral 00 Refill(s) tablet, extended release Wellbutrin 2023-0 Yes 150 mg = 1 M emoria SR 150 2-21 tab, PO, l mg/12 hours 18:23: BID, 0 Herm bernie oral 00 Refill(s) tablet, extended release Wellbutrin 2023-0 Yes 150 mg = 1 M emoria SR 150 2-21 tab, PO, l mg/12 hours 18:23: BID, 0 Herm bernie oral 00 Refill(s) tablet, extended release Wellbutrin 2023-0 Yes 150 mg = 1 M emoria SR 150 2-21 tab, PO, l mg/12 hours 18:23: BID, 0 Herm bernie oral 00 Refill(s) tablet, extended release Wellbutrin 2023-0 Yes 150 mg = 1 M emoria SR 150 2-21 tab, PO, l mg/12 hours 18:23: BID, 0 Herm bernie oral 00 Refill(s) tablet, extended release levETIRAcet 3-0 No Notes: Jose Francisco zhang am 2- Same as l 15:00: Declan [place] 00 MEDICATION WASTE Product Size: 500 mg Product Wasted: ___ mg docusate No Notes: Memoria 2-21 (Same as: l 15:00: Colace) [place] 00 (Do Not Crush) senna No Notes: Memoria 2-21 (Same as: l 15:00: Senokot) [place] 00 lidocaine No Notes: Memori a topical 2-21 Patch is l 15:00: applied to [place] 00 intact skin to cover painful area for up to 12 hours in a 24-hour period (12 hours on and 12 hours off). Please indicate the location of applicatio n site. Site 1: Remove old patch before applicatio n of new patch. (Same as Aspercreme Lidocaine Patch) Saline No Notes: Memoria Flush 0.9% 2-21 (Same as: l 15:00: BD [place] 00 Posiflush) levETIRAcet No Notes: Jose Francisco zhang am 2-21 Same as l 15:00: Keppra [place] 00 MEDICATION WASTE Product Size: 500 mg Product Wasted: ___ mg docusate No Notes: Memoria 2-21 (Same as: l 15:00: Colace) [place] 00 (Do Not Crush) senna No Notes: Memoria 2-21 (Same as: l 15:00: Senokot) [place] 00 lidocaine No Notes: Memori a topical 2-21 Patch is l 15:00: applied to [place] 00 intact skin to cover painful area for up to 12 hours in a 24-hour period (12 hours on and 12 hours off). Please indicate the location of applicatio n site. Site 1: Remove old patch before applicatio n of new patch. (Same as Aspercreme Lidocaine Patch) Saline No Notes: Memoria Flush 0.9% 2-21 (Same as: l 15:00: BD [place] 00 Posiflush) levETIRAcet No Notes: Jose Francisco zhang am 2-21 Same as l 15:00: Keppra [place] 00 MEDICATION WASTE Product Size: 500 mg Product Wasted: ___ mg docusate No Notes: Memoria 2-21 (Same as: l 15:00: Colace) [place] 00 (Do Not Crush) senna No Notes: Memoria 2-21 (Same as: l 15:00: Senokot) [place] 00 lidocaine No Notes: Memori a topical 2-21 Patch is l 15:00: applied to [place] 00 intact skin to cover painful area [...] Memoria 2-21 (Same as: l 15:00: Colace) [place] 00 (Do Not Crush) senna No Notes: Memoria 2-21 (Same as: l 15:00: Senokot) [place] 00 lidocaine No Notes: Memori a topical 2-21 Patch is l 15:00: applied to [place] 00 intact skin to cover painful area for up to 12 hours in a 24-hour period (12 hours on and 12 hours off). Please indicate the location of applicatio n site. Site 1: Remove old patch before applicatio n of new patch. (Same as Aspercreme Lidocaine Patch) Saline No Notes: Memoria Flush 0.9% 2-21 (Same as: l 15:00: BD [place] 00 Posiflush) levETIRAcet No Notes: Jose Francisco zhang am 2-21 Same as l 15:00: Keppra Ra[place] 00 MEDICATION WASTE Product Size: 500 mg Product Wasted: ___ mg docusate No Notes: Memoria 2-21 (Same as: l 15:00: Colace) [place] 00 (Do Not Crush) senna No Notes: Memoria 2-21 (Same as: l 15:00: Senokot) [place] 00 lidocaine No Notes: Memori a topical 2-21 Patch is l 15:00: applied to Raul 00 intact skin to cover painful area [...] am 2-21 Same as l 15:00: Keppra [place] 00 MEDICATION WASTE Product Size: 500 mg Product Wasted: ___ mg docusate No Notes: Memoria 2-21 (Same as: l 15:00: Colace) [place] 00 (Do Not Crush) senna No Notes: Memoria 2-21 (Same as: l 15:00: Senokot) [place] 00 lidocaine No Notes: Memori a topical 2-21 Patch is l 15:00: applied to [place] 00 intact skin to cover painful area for up to 12 hours in a 24-hour period (12 hours on and 12 hours off). Please indicate the location of applicatio n site. Site 1: Remove old patch before applicatio n of new patch. (Same as Aspercreme Lidocaine Patch) Saline No Notes: Memoria Flush 0.9% 2-21 (Same as: l 15:00: BD [place] 00 Posiflush) Sodium No 1,000 mL, Memori a Chloride 2-21 Rate: 50 l 0.9% IV 14:47: ml/hr, Raul 1,000 mL 00 Infuse over: 20 hr, Route: IV, Dosing Weight 86.364 kg, Total Volume: 1,000, 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/22 8:47:00 TANKAGE GRINDER, Duration: 30 day, Stop date: 12/21/22 8:46:00 CDT, BSA: 1.93 m2, 0 acetaminoph No Notes: Do M emoria en 2-21 not exceed l 14:47: 4 gm/day. Raul (Same as: Tylenol) bisacodyl No Notes: Memori [...] Weight 86.364, kg, 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/22 8:47:00 TANKAGE GRINDER, Duration: 3 doses or times, Stop date: 11/21/22 9:17:00 TANKAGE GRINDER, 0 Saline No Notes: Memoria Flush 0.9% 2-21 (Same as: l 14:47: BD Posiflush) Sodium No 1,000 mL, Memori a Chloride 2-21 Rate: 50 l 0.9% IV 14:47: ml/hr, Raul 1,000 mL 00 Infuse over: 20 hr, Route: IV, Dosing Weight 86.364 kg, Total Volume: 1,000, 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/22 8:47:00 TANKAGE GRINDER, Duration: 30 day, Stop date: 12/21/22 8:46:00 CDT, BSA: 1.93 m2, 0 acetaminoph No Notes: Do M emoria en 2-21 not exceed l 14:47: 4 gm/day. [place] 00 (Same as: Tylenol) bisacodyl No Notes: Memori a 2-21 (Same As: l 14:47: Dulcolax, [place] 00 Bisco-Lax) ondansetron No Notes: Jose Francisco zhang [...] Weight 86.364, kg, 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/22 8:47:00 TANKAGE GRINDER, Duration: 3 doses or times, Stop date: 11/21/22 9:17:00 TANKAGE GRINDER, 0 Saline No Notes: Memoria Flush 0.9% 2-21 (Same as: l 14:47: BD Posiflush) Sodium No 1,000 mL, Memori a Chloride 2-21 Rate: 50 l 0.9% IV 14:47: ml/hr, [place] 1,000 mL 00 Infuse over: 20 hr, Route: IV, Dosing Weight 86.364 kg, Total Volume: 1,000, 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/22 8:47:00 TANKAGE GRINDER, Duration: 30 day, Stop date: 12/21/22 8:46:00 CDT, BSA: 1.93 m2, 0 acetaminoph No Notes: Do M emoria en 2-21 not exceed l 14:47: 4 gm/day. [place] 00 (Same as: Tylenol) bisacodyl No Notes: Memori a 2-21 (Same As: l 14:47: Dulcolax, [place] 00 Bisco-Lax) ondansetron No Notes: Jose Francisco zhang 2-21 (Same as: l 14:47: Zofran) [place] 00 MEDICATION WASTE Product Size: 4 mg Product Wasted: ___ mg hydrALAZINE No Notes: Jose Francisco zhang 2-21 (Same as: l 14:47: Apresoline ) Push over 5 minutes labetalol No 10 mg, 2 Jose Francisco zhang 2-21 mL, Route: l 14:47: IVP, Drug form: INJ, Q15Min, Dosing Weight 86.364, kg, 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/22 8:47:00 TANKAGE GRINDER, Duration: 3 doses or times, Stop date: 11/21/22 9:17:00 TANKAGE GRINDER, 0 Saline No Notes: Memoria Flush 0.9% 2-21 (Same as: l 14:47: BD Posiflush) Sodium No 1,000 mL, Memori a Chloride 2-21 Rate: 50 l 0.9% IV 14:47: ml/hr, [place] 1,000 mL 00 Infuse over: 20 hr, Route: IV, Dosing Weight 86.364 kg, Total Volume: 1,000, 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/22 8:47:00 TANKAGE GRINDER, Duration: 30 day, Stop date: 12/21/22 8:46:00 [...] Weight 86.364, kg, 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/22 8:47:00 TANKAGE GRINDER, Duration: 3 doses or times, Stop date: 11/21/22 9:17:00 TANKAGE GRINDER, 0 Saline No Notes: Memoria Flush 0.9% 2-21 (Same as: l 14:47: BD [place] 00 Posiflush) Sodium No 1,000 mL, Memori a Chloride 2-21 Rate: 50 l 0.9% IV 14:47: ml/hr, [place] 1,000 mL 00 Infuse over: 20 hr, Route: IV, Dosing Weight 86.364 kg, Total Volume: 1,000, 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/22 8:47:00 TANKAGE GRINDER, Duration: 30 day, Stop date: 12/21/22 8:46:00 [...] Weight 86.364, kg, 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/22 8:47:00 TANKAGE GRINDER, Duration: 3 doses or times, Stop date: 11/21/22 9:17:00 TANKAGE GRINDER, 0 Saline No Notes: Memoria Flush 0.9% 2-21 (Same as: l 14:47: BD [place] 00 Posiflush) Sodium No 1,000 mL, Memori a Chloride 2-21 Rate: 50 l 0.9% IV 14:47: ml/hr, [place] 1,000 mL 00 Infuse over: 20 hr, Route: IV, Dosing Weight 86.364 kg, Total Volume: 1,000, 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/22 8:47:00 TANKAGE GRINDER, Duration: 30 day, Stop date: 12/21/22 8:46:00 [...] Weight 86.364, kg, 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/22 8:47:00 TANKAGE GRINDER, Duration: 3 doses or times, Stop date: 11/21/22 9:17:00 TANKAGE GRINDER, 0 Saline 0 No Notes: Memoria Flush 0.9% 2-21 (Same as: l 14:47: BD Posiflush) Tylenol 0 No 1,000 mg, Memor ia 2-21 Route: PO, l 14:03: ONCE, Dosing Weight 86.364, kg, 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/22 8:03:00 TANKAGE GRINDER, Stop date: 11/21/22 8:03:00 TANKAGE GRINDER Tylenol 0 No 1,000 mg, Memor ia 2-21 Route: PO, l 14:03: ONCE, Dosing Weight 86.364, kg, 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/22 8:03:00 TANKAGE GRINDER, Stop date: 11/21/22 8:03:00 TANKAGE GRINDER Tylenol 2023-0 No 1,000 mg, Memor ia 2-21 Route: PO, l 14:03: ONCE, Dosing Weight 86.364, kg, 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/22 8:03:00 TANKAGE GRINDER, Stop date: 11/21/22 8:03:00 TANKAGE GRINDER Tylenol 2023-0 No 1,000 mg, Memor ia 2-21 Route: PO, l 14:03: ONCE, Dosing Weight 86.364, kg, 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/22 8:03:00 TANKAGE GRINDER, Stop date: 11/21/22 8:03:00 TANKAGE GRINDER Tylenol 2023-0 No 1,000 mg, Memor ia 2-21 Route: PO, l 14:03: ONCE, Dosing Weight 86.364, kg, 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/22 8:03:00 TANKAGE GRINDER, Stop date: 11/21/22 8:03:00 TANKAGE GRINDER Tylenol 2023-0 No 1,000 mg, Memor ia 2-21 Route: PO, l 14:03: ONCE, Dosing Weight 86.364, kg, 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/22 8:03:00 TANKAGE GRINDER, Stop date: 11/21/22 8:03:00 TANKAGE GRINDER Saline No Notes: Memoria Flush 0.9% 2-21 (Same as: l 12:05: BD [place] 00 Posiflush) Saline No Notes: Memoria Flush 0.9% 2-21 (Same as: l 12:05: BD Raul 00 Posiflush) Saline No Notes: Memoria Flush 0.9% 2-21 (Same as: l 12:05: BD [place] 00 Posiflush) Saline No Notes: Memoria Flush 0.9% 2-21 (Same as: l 12:05: BD [place] 00 Posiflush) Saline No Notes: Memoria Flush 0.9% 2-21 (Same as: l 12:05: BD [place] 00 Posiflush) Saline No Notes: Memoria Flush 0.9% 2-21 (Same as: l 12:05: BD [place] 00 Posiflush) albuterol 2021-10- No 5mg 5 mg, Univer [...] nn 00 90 tab, 2 Refill(s), Pharmacy: [facility] #[id number], 149.86, cm, 11/02/21 14:32:00 TANKAGE GRINDER, Height, 90.455, kg, 11/02/21 14:32:00 TANKAGE GRINDER, Weight primidone 0 Yes 50 mg = 1 Mem oria 50 mg oral 2-02 tab, PO, l tablet 20:46: Bedtime, # Jessie nn 00 90 tab, 2 Refill(s), Pharmacy: [facility] #[id number], 149.86, cm, 11/02/21 14:32:00 TANKAGE GRINDER, Height, 90.455, kg, 11/02/21 14:32:00 TANKAGE GRINDER, Weight primidone 2021-0 Yes 50 mg = 1 Mem oria 50 mg oral 2-02 tab, PO, l tablet 20:46: Bedtime, # Jessie nn 00 90 tab, 2 Refill(s), Pharmacy: [facility] #[id number], 149.86, cm, 11/02/21 14:32:00 TANKAGE GRINDER, Height, 90.455, kg, 11/02/21 14:32:00 TANKAGE GRINDER, Weight primidone 2021-0 Yes 50 mg = 1 Mem oria 50 mg oral 2-02 tab, PO, l tablet 20:46: Bedtime, # Jessie nn 00 90 tab, 2 Refill(s), Pharmacy: [facility] #[id number], 149.86, cm, 11/02/21 14:32:00 TANKAGE GRINDER, Height, 90.455, kg, 11/02/21 14:32:00 TANKAGE GRINDER, Weight primidone 2022-0 Yes 50 mg = 1 Mem oria 50 mg oral 2-02 tab, PO, l tablet 20:46: Bedtime, # Jessie nn 00 90 tab, 2 Refill(s), Pharmacy: [facility] #[id number], 149.86, cm, 11/02/21 14:32:00 TANKAGE GRINDER, Height, 90.455, kg, 11/02/21 14:32:00 TANKAGE GRINDER, Weight primidone 2022-0 Yes 50 mg = 1 Mem oria 50 mg oral 2-02 tab, PO, l tablet 20:46: Bedtime, # Jessie nn 00 90 tab, 2 Refill(s), Pharmacy: [facility] #[id number], 149.86, cm, 11/02/21 14:32:00 TANKAGE GRINDER, Height, 90.455, kg, 11/02/21 14:32:00 TANKAGE GRINDER, Weight primidone 2022-0 Yes 50 mg = 1 Mem oria 50 mg oral 2-02 tab, PO, l tablet 20:46: Bedtime, # Jessie nn 00 90 tab, 2 Refill(s), Pharmacy: [facility] #[id number], 149.86, cm, 11/02/21 14:32:00 TANKAGE GRINDER, Height, 90.455, kg, 11/02/21 14:32:00 TANKAGE GRINDER, Weight primidone 2022-0 Yes 50 mg = 1 Mem oria 50 mg oral 2-02 tab, PO, l tablet 20:46: Bedtime, # Jessie nn 00 90 tab, 2 Refill(s), Pharmacy: [facility] #[id number], 149.86, cm, 11/02/21 14:32:00 TANKAGE GRINDER, Height, 90.455, kg, 11/02/21 14:32:00 TANKAGE GRINDER, Weight primidone 2022-0 Yes 50 mg = 1 Mem oria 50 mg oral 2-02 tab, PO, l tablet 20:46: Bedtime, # Jessie nn 00 90 tab, 2 Refill(s), Pharmacy: [facility] #[id number], 149.86, cm, 11/02/21 14:32:00 TANKAGE GRINDER, Height, 90.455, kg, 11/02/21 14:32:00 TANKAGE GRINDER, Weight primidone 2022-0 Yes 50 mg = 1 Mem oria 50 mg oral 2-02 tab, PO, l tablet 20:46: Bedtime, # Jessie nn 00 90 tab, 2 Refill(s), Pharmacy: [facility] #[id number], 149.86, cm, 11/02/21 14:32:00 TANKAGE GRINDER, Height, 90.455, kg, 11/02/21 14:32:00 TANKAGE GRINDER, Weight primidone Yes 50 mg = 1 Mem oria 50 mg oral 2-02 tab, PO, l tablet 20:46: Bedtime, # Jessie nn 00 90 tab, 2 Refill(s), Pharmacy: [facility] #[id number], 149.86, cm, 11/02/21 14:32:00 TANKAGE GRINDER, Height, 90.455, kg, 11/02/21 14:32:00 TANKAGE GRINDER, Weight primidone Yes 50 mg = 1 Mem oria 50 mg oral 2-02 tab, PO, l tablet 20:46: Bedtime, # Jessie nn 00 90 tab, 2 Refill(s), Pharmacy: [facility] #[id number], 149.86, cm, 11/02/21 14:32:00 TANKAGE GRINDER, Height, 90.455, kg, 11/02/21 14:32:00 TANKAGE GRINDER, Weight primidone 0 Yes 50 mg = 1 Mem oria 50 mg oral 2-02 tab, PO, l tablet 20:46: Bedtime, # Jessie nn 00 90 tab, 2 Refill(s), Pharmacy: [facility] #[id number], 149.86, cm, 11/02/21 14:32:00 TANKAGE GRINDER, Height, 90.455, kg, 11/02/21 14:32:00 TANKAGE GRINDER, Weight NIFEdipine Yes TAKE 1 Memor ia (Eqv-Adalat 2-02 TABLET BY l CC) 30 mg 20:38: MOUTH Raul oral 00 EVERY DAY tablet, ON EMPTY extended STOMACH release FOR 30 DAYS Furosemide Yes TAKE 1 Memor ia 40 MG Oral 2-02 TABLET BY l Tablet 20:38: MOUTH [place] 00 EVERY DAY NEEDED FOR SWELLING tramadol Yes TAKE 1 Memoria hydrochlori 2-02 TABLET BY l de 50 MG 20:38: MOUTH [place] Oral Tablet 00 EVERY 6 TO 8 [...] BY l CC) 30 mg 20:38: MOUTH [place] oral 00 EVERY DAY tablet, ON EMPTY extended STOMACH release FOR 30 DAYS Furosemide Yes TAKE 1 Memor ia 40 MG Oral 2-02 TABLET BY l Tablet 20:38: MOUTH [place] 00 EVERY DAY NEEDED FOR SWELLING tramadol [...] TABLET BY l oral 20:38: MOUTH 2 [place] enteric 00 TIMES coated DAILY HALF tablet HOUR BEFORE BREAKFAST OR FIRST MEAL oxybutynin Yes TAKE 1 Memor ia 5 mg oral 2-02 TABLET BY l tablet 20:38: MOUTH [place] 00 THREE TIMES A DAY NIFEdipine Yes TAKE 1 Memor ia (Eqv-Adalat 2-02 TABLET BY l CC) 30 mg 20:38: MOUTH [place] oral 00 EVERY DAY tablet, ON EMPTY extended STOMACH release FOR 30 DAYS Furosemide Yes TAKE 1 Memor ia 40 MG Oral 2-02 TABLET BY l Tablet 20:38: MOUTH [place] 00 EVERY DAY NEEDED FOR SWELLING tramadol Yes TAKE 1 Memoria hydrochlori 2-02 TABLET BY l de 50 MG 20:38: MOUTH [place] Oral Tablet 00 EVERY 6 TO 8 HOURS NEEDED predniSONE Yes TAKE 1 Memor ia 10 mg oral 2-02 TABLET BY l tablet 20:38: MOUTH [place] 00 EVERY DAY FOR 90 DAYS doxycycline Yes TAKE 1 Jose Francisco zhang hyclate 100 2-02 CAPSULE BY l MG Oral 20:38: MOUTH [place] Capsule 00 TWICE A DAY Colestipol Yes TAKE 1 Memor ia Hydrochlori 2-02 TABLET BY l de 1000 MG 20:38: MOUTH Ajay n Oral Tablet 00 TWICE A DAY pantoprazol Yes TAKE 1 Jose Francisco zhang e 40 mg 2-02 TABLET BY l oral 20:38: MOUTH 2 [place] enteric 00 TIMES coated DAILY HALF tablet HOUR BEFORE BREAKFAST OR FIRST MEAL oxybutynin Yes TAKE 1 Memor ia 5 mg oral 2-02 TABLET BY l tablet 20:38: MOUTH [place] 00 THREE TIMES A DAY NIFEdipine Yes TAKE 1 Memor ia (Eqv-Adalat 2-02 TABLET BY l CC) 30 mg 20:38: MOUTH [place] oral 00 EVERY DAY tablet, ON EMPTY extended STOMACH release FOR 30 DAYS Furosemide Yes TAKE 1 Memor ia 40 MG Oral 2-02 TABLET BY l Tablet 20:38: MOUTH [place] 00 EVERY DAY NEEDED FOR SWELLING tramadol Yes TAKE 1 Memoria hydrochlori 2-02 TABLET BY l de 50 MG 20:38: MOUTH [place] Oral Tablet 00 EVERY 6 TO 8 [...] BY l de 50 MG 20:38: MOUTH [place] Oral Tablet 00 EVERY 6 TO 8 HOURS NEEDED predniSONE Yes TAKE 1 Memor ia 10 mg oral 2-02 TABLET BY l tablet 20:38: MOUTH [place] 00 EVERY DAY FOR 90 DAYS doxycycline Yes TAKE 1 Jose Francisco zhang hyclate 100 2-02 CAPSULE BY l MG Oral 20:38: MOUTH [place] Capsule 00 TWICE A DAY Colestipol Yes TAKE 1 Memor ia Hydrochlori 2-02 TABLET BY l de 1000 MG 20:38: MOUTH Ajay n Oral Tablet 00 TWICE A DAY pantoprazol Yes TAKE 1 Jose Francisco zhang e 40 mg 2-02 TABLET BY l oral 20:38: MOUTH 2 [place] enteric 00 TIMES coated DAILY HALF tablet HOUR BEFORE BREAKFAST OR FIRST MEAL oxybutynin Yes TAKE 1 Memor ia 5 mg oral 2-02 TABLET BY l tablet 20:38: MOUTH [place] 00 THREE TIMES A DAY NIFEdipine Yes [...] 2-02 TABLET BY l tablet 20:38: MOUTH [place] 00 THREE TIMES A DAY NIFEdipine Yes TAKE 1 Memor ia (Eqv-Adalat 2-02 TABLET BY l CC) 30 mg 20:38: MOUTH [place] oral 00 EVERY DAY tablet, ON EMPTY extended STOMACH release FOR 30 DAYS Furosemide Yes TAKE 1 Memor ia 40 MG Oral 2-02 TABLET BY l Tablet 20:38: MOUTH [place] 00 EVERY DAY NEEDED FOR SWELLING tramadol Yes TAKE 1 Memoria hydrochlori 2-02 TABLET BY l de 50 MG 20:38: MOUTH [place] Oral Tablet 00 EVERY 6 TO 8 HOURS NEEDED predniSONE Yes TAKE 1 Memor ia 10 mg oral 2-02 TABLET BY l tablet 20:38: MOUTH [place] 00 EVERY DAY FOR 90 DAYS doxycycline Yes TAKE 1 Jose Francisco zhang hyclate 100 2-02 CAPSULE BY l MG Oral 20:38: MOUTH [place] Capsule 00 TWICE A DAY Colestipol Yes [...] CAPSULE BY l MG Oral 20:38: MOUTH [place] Capsule 00 TWICE A DAY NIFEdipine Yes TAKE 1 Memor ia (Eqv-Adalat 2-02 TABLET BY l CC) 30 mg 20:38: MOUTH Raul oral 00 EVERY DAY tablet, ON EMPTY extended STOMACH release FOR 30 DAYS Furosemide Yes TAKE 1 Memor ia 40 MG Oral 2-02 TABLET BY l Tablet 20:38: MOUTH [place] 00 EVERY DAY NEEDED FOR SWELLING tramadol Yes TAKE 1 Memoria hydrochlori 2-02 TABLET BY l de 50 MG 20:38: MOUTH [place] Oral Tablet 00 EVERY 6 TO 8 HOURS NEEDED predniSONE Yes TAKE 1 Memor ia 10 mg oral 2-02 TABLET BY l tablet 20:38: MOUTH [place] 00 EVERY DAY FOR 90 DAYS Colestipol Yes TAKE 1 Memor ia Hydrochlori 2-02 TABLET BY l de 1000 MG 20:38: MOUTH Ajay n Oral Tablet 00 TWICE A DAY doxycycline Yes TAKE 1 Jose Francisco zhang hyclate 100 2-02 CAPSULE BY l MG Oral 20:38: MOUTH [place] Capsule 00 TWICE A DAY Colestipol Yes [...] MOUTH Raul 00 THREE TIMES A DAY pantoprazol Yes TAKE 1 Jose [...] BY l CC) 30 mg 20:38: MOUTH [place] oral 00 EVERY DAY tablet, ON EMPTY extended STOMACH release FOR 30 DAYS Furosemide Yes TAKE 1 [facility] 40 MG Oral 2-02 TABLET BY l Tablet 20:38: MOUTH Raul 00 EVERY DAY NEEDED FOR SWELLING tramadol Yes TAKE 1 [facility] hydrochlori 2-02 TABLET BY l de 50 MG 20:38: MOUTH [place] Oral Tablet 00 EVERY 6 TO 8 HOURS NEEDED predniSONE Yes TAKE 1 [facility] 10 mg oral 2-02 TABLET BY l tablet 20:38: MOUTH [place] 00 EVERY DAY FOR 90 DAYS doxycycline [...] TABLET BY l oral 20:38: MOUTH 2 [place] enteric 00 TIMES coated DAILY HALF tablet HOUR BEFORE BREAKFAST OR FIRST MEAL oxybutynin Yes TAKE 1 [facility] 5 mg oral 2-02 TABLET BY l tablet 20:38: MOUTH [place] 00 THREE TIMES A DAY NIFEdipine Yes TAKE 1 [facility] (Eqv-Adalat 2-02 TABLET BY l CC) 30 mg 20:38: MOUTH [place] oral 00 EVERY DAY tablet, ON EMPTY extended STOMACH release FOR 30 DAYS Furosemide Yes TAKE 1 [facility] 40 MG Oral 2-02 TABLET BY l Tablet 20:38: MOUTH [place] 00 EVERY DAY NEEDED FOR SWELLING tramadol Yes TAKE 1 [facility] hydrochlori 2-02 TABLET BY l de 50 MG 20:38: MOUTH [place] Oral Tablet 00 EVERY 6 TO 8 HOURS NEEDED predniSONE Yes TAKE 1 [facility] 10 mg oral 2-02 TABLET BY l tablet 20:38: MOUTH [place] 00 EVERY DAY FOR 90 DAYS doxycycline Yes TAKE 1 Jose [place] zhang hyclate 100 2-02 CAPSULE BY l MG Oral 20:38: MOUTH [place] Capsule 00 TWICE A DAY Colestipol Yes TAKE 1 [facility] Hydrochlori 2-02 TABLET BY l de 1000 MG 20:38: MOUTH Ajay n Oral Tablet 00 TWICE A DAY pantoprazol Yes TAKE 1 [place] zhang e 40 mg 2-02 TABLET BY l oral 20:38: MOUTH 2 [place] enteric 00 TIMES coated DAILY HALF tablet HOUR BEFORE BREAKFAST OR FIRST MEAL oxybutynin Yes TAKE 1 [facility] 5 mg oral 2-02 TABLET BY l tablet 20:38: MOUTH [place] 00 THREE TIMES A DAY NIFEdipine Yes [...] 2-02 TABLET BY l tablet 20:38: MOUTH [place] 00 EVERY DAY FOR 90 DAYS doxycycline [...] Daily, l tablet 19:08: # 90 tab, Aajy n 00 1 Refill(s), Pharmacy: [facility] #[id number], 149.86, cm, 12/24/20 13:59:00 CDT, Height, 93.182, kg, 12/24/20 13:59:00 CDT, Weight primidone 1-0 Yes 50 mg = 1 Mem oria 50 mg oral 3-26 tab, PO, l tablet 19:08: Bedtime, # Jessie nn 00 90 tab, 2 Refill(s), Pharmacy: [facility] cy #[id number], 149.86, cm, 12/24/20 13:59:00 CDT, Height, 93.182, kg, 12/24/20 13:59:00 CDT, Weight donepezil 2020-0 Yes = 1 tab, Jose Francisco zhang 10 mg oral 3-26 PO, Daily, l tablet 19:08: # 90 tab, Ajay n 00 1 Refill(s), Pharmacy: [facility] #[id number], 149.86, cm, 12/24/20 13:59:00 CDT, Height, 93.182, kg, 12/24/20 13:59:00 CDT, Weight primidone 1-0 Yes 50 mg = 1 Mem oria 50 mg oral 3-26 tab, PO, l tablet 19:08: Bedtime, # Jessie nn 00 90 tab, 2 Refill(s), Pharmacy: [facility] cy #[id number], 149.86, cm, 12/24/20 13:59:00 CDT, Height, 93.182, kg, 12/24/20 13:59:00 CDT, Weight donepezil 2020-0 Yes = 1 tab, Jose Francisco zhang 10 mg oral 3-26 PO, Daily, l tablet 19:08: # 90 tab, Ajay n 00 1 Refill(s), Pharmacy: [facility] cy #[id number], 149.86, cm, 12/24/20 13:59:00 CDT, Height, 93.182, kg, 12/24/20 13:59:00 CDT, Weight primidone 1-0 Yes 50 mg = 1 Mem oria 50 mg oral 3-26 tab, PO, l tablet 19:08: Bedtime, # Jessie nn 00 90 tab, 2 Refill(s), Pharmacy: [facility] #[id number], 149.86, cm, 12/24/20 13:59:00 CDT, Height, 93.182, kg, 12/24/20 13:59:00 CDT, Weight donepezil 2021-0 Yes = 1 tab, Jose Francisco zhang 10 mg oral 3-26 PO, Daily, l tablet 19:08: # 90 tab, Ajay n 00 1 Refill(s), Pharmacy: [facility] #[id number], 149.86, cm, 12/24/20 13:59:00 CDT, Height, 93.182, kg, 12/24/20 13:59:00 CDT, Weight primidone 2021-0 Yes 50 mg = 1 Mem oria 50 mg oral 3-26 tab, PO, l tablet 19:08: Bedtime, # Jessie nn 00 90 tab, 2 Refill(s), Pharmacy: [facility]vin #[id number], 149.86, cm, 12/24/20 13:59:00 CDT, Height, 93.182, kg, 12/24/20 13:59:00 CDT, Weight donepezil 1-0 Yes = 1 tab, Jose Francisco zhang 10 mg oral 3-26 PO, Daily, l tablet 19:08: # 90 tab, Ajay n 00 1 Refill(s), Pharmacy: [facility] #[id number], 149.86, cm, 12/24/20 13:59:00 CDT, Height, 93.182, kg, 12/24/20 13:59:00 CDT, Weight primidone 1-0 Yes 50 mg = 1 Mem oria 50 mg oral 3-26 tab, PO, l tablet 19:08: Bedtime, # Jessie nn 00 90 tab, 2 Refill(s), Pharmacy: [facility] #[id number], 149.86, cm, 12/24/20 13:59:00 CDT, Height, 93.182, kg, 12/24/20 13:59:00 CDT, Weight donepezil 1-0 Yes = 1 tab, Jose Francisco zhang 10 mg oral 3-26 PO, Daily, l tablet 19:08: # 90 tab, Ajay n 00 1 Refill(s), Pharmacy: [facility] #[id number], 149.86, cm, 12/24/20 13:59:00 CDT, Height, 93.182, kg, 12/24/20 13:59:00 CDT, Weight primidone 2021-0 Yes 50 mg = 1 Mem oria 50 mg oral 3-26 tab, PO, l tablet 19:08: Bedtime, # Jessie nn 00 90 tab, 2 Refill(s), Pharmacy: [facility] #[id number], 149.86, cm, 12/24/20 13:59:00 CDT, Height, 93.182, kg, 12/24/20 13:59:00 CDT, Weight donepezil 202-0 Yes = 1 tab, Jose Francisco zhang 10 mg oral 3-26 PO, Daily, l tablet 19:08: # 90 tab, Ajay n 00 1 Refill(s), Pharmacy: [facility] ke[facility] #[id number], 149.86, cm, 12/24/20 13:59:00 CDT, Height, 93.182, kg, 12/24/20 13:59:00 CDT, Weight primidone 202-0 Yes 50 mg = 1 Mem oria 50 mg oral 3-26 tab, PO, l tablet 19:08: Bedtime, # Jessie nn 00 90 tab, 2 Refill(s), Pharmacy: [facility] kevin #[id number], 149.86, cm, 12/24/20 13:59:00 CDT, Height, 93.182, kg, 12/24/20 13:59:00 CDT, Weight donepezil 2020-0 Yes = 1 tab, Jose Francisco zhang 10 mg oral 3-26 PO, Daily, l tablet 19:08: # 90 tab, Ajay n 00 1 Refill(s), Pharmacy: [facility] ke[facility] #[id number], 149.86, cm, 12/24/20 13:59:00 CDT, Height, 93.182, kg, 12/24/20 13:59:00 CDT, Weight primidone 202-0 Yes 50 mg = 1 Mem oria 50 mg oral 3-26 tab, PO, l tablet 19:08: Bedtime, # Jessie nn 00 90 tab, 2 Refill(s), Pharmacy: [facility] #[id number], 149.86, cm, 12/24/20 13:59:00 CDT, Height, 93.182, kg, 12/24/20 13:59:00 CDT, Weight donepezil 2020-0 Yes = 1 tab, Jose Francisco zhang 10 mg oral 3-26 PO, Daily, l tablet 19:08: # 90 tab, Ajay n 00 1 Refill(s), Pharmacy: [facility] kevin #[id number], 149.86, cm, 12/24/20 13:59:00 CDT, Height, 93.182, kg, 12/24/20 13:59:00 CDT, Weight primidone 2021-0 Yes 50 mg = 1 Mem oria 50 mg oral 3-26 tab, PO, l tablet 19:08: Bedtime, # Jessie nn 00 90 tab, 2 Refill(s), Pharmacy: [facility] ke[facility] #[id number], 149.86, cm, 12/24/20 13:59:00 CDT, Height, 93.182, kg, 12/24/20 13:59:00 CDT, Weight donepezil 2021-0 Yes = 1 tab, Jose Francisco zhang 10 mg oral 3-26 PO, Daily, l tablet 19:08: # 90 tab, Ajay n 00 1 Refill(s), Pharmacy: [facility] ke[facility] #[id number], 149.86, cm, 12/24/20 13:59:00 CDT, Height, 93.182, kg, 12/24/20 13:59:00 CDT, Weight primidone 2021-0 Yes 50 mg = 1 Mem oria 50 mg oral 3-26 tab, PO, l tablet 19:08: Bedtime, # Jessie nn 00 90 tab, 2 Refill(s), Pharmacy: [facility] #[id number], 149.86, cm, 12/24/20 13:59:00 CDT, Height, 93.182, kg, 12/24/20 13:59:00 CDT, Weight donepezil 2021-0 Yes = 1 tab, Jose Francisco zhang 10 mg oral 3-26 PO, Daily, l tablet 19:08: # 90 tab, Ajay n 00 1 Refill(s), Pharmacy: [facility] #[id number], 149.86, cm, 12/24/20 13:59:00 CDT, Height, 93.182, kg, 12/24/20 13:59:00 CDT, Weight primidone 2021-0 Yes 50 mg = 1 Mem oria 50 mg oral 3-26 tab, PO, l tablet 19:08: Bedtime, # Jessie nn 00 90 tab, 2 Refill(s), Pharmacy: [facility] cy #[id number], 149.86, cm, 12/24/20 13:59:00 CDT, Height, 93.182, kg, 12/24/20 13:59:00 CDT, Weight donepezil 2020-0 Yes = 1 tab, Jose Francisco zhang 10 mg oral 3-26 PO, Daily, l tablet 19:08: # 90 tab, Ajay n 00 1 Refill(s), Pharmacy: [facility] #[id number], 149.86, cm, 12/24/20 13:59:00 CDT, Height, 93.182, kg, 12/24/20 13:59:00 CDT, Weight primidone 2020-0 Yes 50 mg = 1 Mem oria 50 mg oral 3-26 tab, PO, l tablet 19:08: Bedtime, # Jessie nn 00 90 tab, 2 Refill(s), Pharmacy: [facility] #[id number], 149.86, cm, 12/24/20 13:59:00 CDT, Height, 93.182, kg, 12/24/20 13:59:00 CDT, Weight donepezil 2020-0 Yes = 1 tab, Jose Francisco zhang 10 mg oral 3-26 PO, Daily, l tablet 19:08: # 90 tab, Ajay n 00 1 Refill(s), Pharmacy: [facility] #[id number], 149.86, cm, 12/24/20 13:59:00 CDT, Height, 93.182, kg, 12/24/20 13:59:00 CDT, Weight primidone 2020-0 Yes 50 mg = 1 Mem oria 50 mg oral 3-26 tab, PO, l tablet 19:08: Bedtime, # Jessie nn 00 90 tab, 2 Refill(s), Pharmacy: [facility] cy #[id number], 149.86, cm, 12/24/20 13:59:00 CDT, Height, 93.182, kg, 12/24/20 13:59:00 CDT, Weight Lidocaine Lidocaine 2020-0 No 10mg Com mon 3-11 [facility] 00:[facility]: - [facility] 00 [facility] Celestone Celestone 2021-0 No 6mg Com mon Soluspan Soluspan 3-11 [facility] (Betamethas (Betamethas 00:00: - [facility]I one) one) 00 [facility] Lidocaine Lidocaine 2020-0 No 10mg Com 12-09 [facility] 00:[facility]: - [facility] 00 [facility] Celestone Celestone 2020-0 No 6mg Com mon Soluspan Soluspan 3-11 [facility] (Betamethas (Betamethas 00:00: - [facility] one) one) 00 [facility] Lidocaine Lidocaine 2020-0 No 10mg Com 12-09 [facility] 00:00: - [facility] 00 [facility] Celestone Celestone 2020-0 No 6mg Com mon Soluspan Soluspan 3-11 [facility] (Betamethas (Betamethas 00:00: - [facility] one) one) 00 [facility] Lidocaine Lidocaine 2020-0 No 10mg Com 12-09 [facility] 00:[facility]: - [facility] 00 [facility] Celestone Celestone 2020-0 No 6mg Com mon Soluspan Soluspan 3-11 [facility] (Betamethas (Betamethas 00:00: - [facility] one) one) 00 [facility] Lidocaine Lidocaine 2020-0 No 10mg Com 12-09 [facility] 00:00: - [facility] 00 [facility] Celestone Celestone 1-0 No 6mg Com mon Soluspan Soluspan 3-11 [facility] (Betamethas (Betamethas 00:00: - [facility] one) one) 00 [facility] Lidocaine Lidocaine 2020-0 No 10mg Com 12-09 [facility] 00:00: - [facility] 00 [facility] Celestone Celestone 2020-0 No 6mg Com mon Soluspan Soluspan 3-11 [facility] (Betamethas (Betamethas 00:00: - [facility] one) one) 00 [facility] Lidocaine Lidocaine 1-0 No 10mg Com 12-09 [facility] 00:00: - [facility] 00 [facility] Celestone Celestone 1-0 No 6mg Com mon Soluspan Soluspan 3-11 [facility] (Betamethas (Betamethas 00:00: - [facility] one) one) 00 [facility] Lidocaine Lidocaine 2021-0 No 10mg Com mon 3-11 [facility] 00:00: - [facility] 00 [facility] Celestone Celestone No 6mg Com sun Soluspan Soluspan 11 [facility] (Betamethas (Betamethas 00:00: - [facility] one) one) 00 [facility] Lovastatin 2019-10 No 20 mg, 1 Mem oria 2-07 tab, l 03:00: Route: PO, [place] 00 Drug form: TAB, Bedtime, Dosing Weight 104.545, kg, Start date: 09/05/20 21:00:00 TANKAGE GRINDER, Duration: 30 day, Stop date: 10/04/20 21:00:00 TANKAGE GRINDER Primidone 2019-10 No Notes: Memori a 2-07 (Same as: l 03:00: Mysoline) Lipitor 2019-10 No Notes: Memoria 2-07 (Same As: l 03:00: Lipitor) Lovastatin 2019-10 No 20 mg, 1 Mem oria 2-07 tab, l 03:00: Route: PO, [place] 00 Drug form: TAB, Bedtime, Dosing Weight 104.545, kg, Start date: 09/05/20 21:00:00 TANKAGE GRINDER, Duration: 30 day, Stop date: 10/04/20 21:00:00 TANKAGE GRINDER Primidone 2019-10 No Notes: Memori a 2-07 (Same as: l 03:00: Mysoline) Lipitor 2019-10 No Notes: Memoria 2-07 (Same As: l 03:00: Lipitor) Lovastatin 2019-10 No 20 mg, 1 Mem oria 2-07 tab, l 03:00: Route: PO, Drug form: TAB, Bedtime, Dosing Weight 104.545, kg, Start date: 09/05/20 21:00:00 TANKAGE GRINDER, Duration: 30 day, Stop date: 10/04/20 21:00:00 TANKAGE GRINDER Primidone 2019-10 No Notes: Memori a 2-07 (Same as: l 03:00: Mysoline) Lipitor 2019-10 No Notes: Memoria 2-07 (Same As: l 03:00: Lipitor) Lovastatin 2019-10 No 20 mg, 1 Mem oria 2-07 tab, l 03:00: Route: PO, [place] 00 Drug form: TAB, Bedtime, Dosing Weight 104.545, kg, Start date: 09/05/20 21:00:00 TANKAGE GRINDER, Duration: 30 day, Stop date: 10/04/20 21:00:00 TANKAGE GRINDER Primidone 2019-10 No Notes: Memori a 2-07 (Same as: l 03:00: Mysoline) Lipitor 2019-10 No Notes: Memoria 2-07 (Same As: l 03:00: Lipitor) Lovastatin 2019-10 No 20 mg, 1 Mem oria 2-07 tab, l 03:00: Route: PO, Raul 00 Drug form: TAB, Bedtime, Dosing Weight 104.545, kg, Start date: 09/05/20 21:00:00 TANKAGE GRINDER, Duration: 30 day, Stop date: 10/04/20 21:00:00 TANKAGE GRINDER Primidone 2019-10 No Notes: Memori a 2-07 (Same as: l 03:00: Mysoline) Lipitor 2019-10 No Notes: Memoria 2-07 (Same As: l 03:00: Lipitor) Lovastatin 2019-10 No 20 mg, 1 Mem oria 2-07 tab, l 03:00: Route: PO, [place] 00 Drug form: TAB, Bedtime, Dosing Weight 104.545, kg, Start date: 09/05/20 21:00:00 TANKAGE GRINDER, Duration: 30 day, Stop date: 10/04/20 21:00:00 TANKAGE GRINDER Primidone 2019-10 No Notes: Memori a 2-07 (Same as: l 03:00: Mysoline) Lipitor 2019-10 No Notes: Memoria 2-07 (Same As: l 03:00: Lipitor) Lovastatin 2019-10 No 20 mg, 1 Mem oria 2-07 tab, l 03:00: Route: PO, Raul 00 Drug form: TAB, Bedtime, Dosing Weight 104.545, kg, Start date: 09/05/20 21:00:00 TANKAGE GRINDER, Duration: 30 day, Stop date: 10/04/20 21:00:00 TANKAGE GRINDER Primidone 2019-10 No Notes: Memori a 2-07 (Same as: l 03:00: Mysoline) Lipitor 2019-10 No Notes: Memoria 2-07 (Same As: l 03:00: Lipitor) Lovastatin 2019-10 No 20 mg, 1 Mem oria 2-07 tab, l 03:00: Route: PO, [place] 00 Drug form: TAB, Bedtime, Dosing Weight 104.545, kg, Start date: 09/05/20 21:00:00 TANKAGE GRINDER, Duration: 30 day, Stop date: 10/04/20 21:00:00 TANKAGE GRINDER Primidone 2019-10 No Notes: Memori a 2-07 (Same as: l 03:00: Mysoline) Lipitor 2019-10 No Notes: Memoria 2-07 (Same As: l 03:00: Lipitor) Lovastatin 2019-10 No 20 mg, 1 Mem oria 2-07 tab, l 03:00: Route: PO, Raul 00 Drug form: TAB, Bedtime, Dosing Weight 104.545, kg, Start date: 09/05/20 21:00:00 TANKAGE GRINDER, Duration: 30 day, Stop date: 10/04/20 21:00:00 TANKAGE GRINDER Primidone 2019-10 No Notes: Memori a 2-07 (Same as: l 03:00: Mysoline) Lovastatin 2019-10 No 20 mg, 1 Mem oria 2-07 tab, l 03:00: Route: PO, Raul 00 Drug form: TAB, Bedtime, Dosing Weight 104.545, kg, Start date: 09/05/20 21:00:00 TANKAGE GRINDER, Duration: 30 day, Stop date: 10/04/20 21:00:00 TANKAGE GRINDER Primidone 2019-10 No Notes: Memori a 2-07 (Same as: l 03:00: Mysoline) Lipitor 2019-10 No Notes: Memoria 2-07 (Same As: l 03:00: Lipitor) Lipitor 2019-10 No Notes: Memoria 2-07 (Same As: l 03:00: Lipitor) Lovastatin 2019-10 No 20 mg, 1 Mem oria 2-07 tab, l 03:00: Route: PO, [place] 00 Drug form: TAB, Bedtime, Dosing Weight 104.545, kg, Start date: 09/05/20 21:00:00 TANKAGE GRINDER, Duration: 30 day, Stop date: 10/04/20 21:00:00 TANKAGE GRINDER Primidone 2019-10 No Notes: Memori a 2-07 (Same as: l 03:00: Mysoline) Lipitor 2019-10 No Notes: Memoria 2-07 (Same As: l 03:00: Lipitor) Lovastatin 2019-10 No 20 mg, 1 Mem oria 2-07 tab, l 03:00: Route: PO, [place] 00 Drug form: TAB, Bedtime, Dosing Weight 104.545, kg, Start date: 09/05/20 21:00:00 TANKAGE GRINDER, Duration: 30 day, Stop date: 10/04/20 21:00:00 TANKAGE GRINDER Primidone 2019-10 No Notes: Memori a 2-07 (Same as: l 03:00: Mysoline) Lipitor 2019-10 No Notes: Memoria 2-07 (Same As: l 03:00: Lipitor) Lovastatin 2019-10 No 20 mg, 1 Mem oria 2-07 tab, l 03:00: Route: PO, [place] 00 Drug form: TAB, Bedtime, Dosing Weight 104.545, kg, Start date: 09/05/20 21:00:00 TANKAGE GRINDER, Duration: 30 day, Stop date: 10/04/20 21:00:00 TANKAGE GRINDER Primidone 2019-10 No Notes: Memori a 2-07 [...] as: l solution 17:00: Duoneb) Ajay n 00 DuoNeb 2019-10 No Notes: Memoria inhalation 2-06 [...] Respules 2-06 (Same As: l 16:00: Pulmicort) [place] 00 Pulmicort 2019-10 No Notes: Memori a Respules 2-06 (Same As: l 16:00: Pulmicort) [place] 00 Pulmicort 2019-10 No Notes: Memori a Respules [...] 104.545, kg, Daily, Start date: 09/05/20 9:00:00 TANKAGE GRINDER, Duration: 30 day, Stop date: 10/04/20 9:00:00 TANKAGE GRINDER gabapentin 2019-10 No Notes: Memor ia 300 MG Oral 2-06 (Same as: l Capsule 15:00: Neurontin) ropinirole 2019-10 No Notes: Memor ia 2-06 (Same as: l 15:00: Requip) Bupropion 2019-10 No Notes: Memori a 2-06 (Same as: l 15:00: Wellbutrin Raul XL) "Do Not Crush" carvedilol 2019-10 No [...] 104.545, kg, Daily, Start date: 09/05/20 9:00:00 TANKAGE GRINDER, Duration: 30 day, Stop date: 10/04/20 9:00:00 TANKAGE GRINDER gabapentin 2019-10 No Notes: Memor ia 300 MG Oral 2-06 (Same as: l Capsule 15:00: Neurontin) ropinirole 2019-10 No Notes: Memor ia 2-06 (Same as: l 15:00: Requip) Bupropion 2019-10 No Notes: Memori a 2-06 (Same as: l 15:00: Wellbutrin [place] XL) "Do Not Crush" carvedilol 2019-10 No [...] 104.545, kg, Daily, Start date: 09/05/20 9:00:00 TANKAGE GRINDER, Duration: 30 day, Stop date: 10/04/20 9:00:00 TANKAGE GRINDER gabapentin 2019-10 No Notes: Memor ia 300 [...] 104.545, kg, Daily, Start date: 09/05/20 9:00:00 TANKAGE GRINDER, Duration: 30 day, Stop date: 10/04/20 9:00:00 TANKAGE GRINDER gabapentin 2019-10 No Notes: Memor ia 300 MG Oral 2-06 (Same as: l Capsule 15:00: Neurontin) ropinirole 2019-10 No Notes: Memor ia 2-06 (Same as: l 15:00: Requip) Bupropion 2019-10 No Notes: Memori a 2-06 (Same as: l 15:00: Wellbutrin [place] XL) "Do Not Crush" carvedilol 2019-10 No [...] inhalation l 62.5 mcg-25 15:00: [facility] , Drug powder Form: PWDR, Dosing Weight 104.545, kg, Daily, Start date: 09/05/20 9:00:00 TANKAGE GRINDER, Duration: 30 day, Stop date: 10/04/20 9:00:00 TANKAGE GRINDER gabapentin 2019-10 No Notes: Memor ia 300 MG Oral 2-06 (Same as: l Capsule 15:00: Neurontin) ropinirole 2019-10 No Notes: Memor ia 2-06 (Same as: l 15:00: Requip) Bupropion 2019-10 No Notes: Memori a 2-06 (Same as: l 15:00: Wellbutrin [place] 00 XL) "Do Not Crush" carvedilol 2019-10 [...] 104.545, kg, Daily, Start date: 09/05/20 9:00:00 TANKAGE GRINDER, Duration: 30 day, Stop date: 10/04/20 9:00:00 TANKAGE GRINDER gabapentin 2019-10 No Notes: Memor ia 300 [...] 104.545, kg, Daily, Start date: 09/05/20 9:00:00 TANKAGE GRINDER, Duration: 30 day, Stop date: 10/04/20 9:00:00 TANKAGE GRINDER gabapentin 2019-10 No Notes: Memor ia 300 MG Oral 2-06 (Same as: l Capsule 15:00: Neurontin) ropinirole 2019-10 No Notes: Memor ia 2-06 (Same as: l 15:00: Requip) Bupropion 2019-10 No Notes: Memori a 2-06 (Same as: l 15:00: Wellbutrin [place] 00 XL) "Do Not Crush" carvedilol 2019-10 [...] 104.545, kg, Daily, Start date: 09/05/20 9:00:00 TANKAGE GRINDER, Duration: 30 day, Stop date: 10/04/20 9:00:00 TANKAGE GRINDER gabapentin 2019-10 No Notes: Memor ia 300 [...] 104.545, kg, Daily, Start date: 09/05/20 9:00:00 TANKAGE GRINDER, Duration: 30 day, Stop date: 10/04/20 9:00:00 TANKAGE GRINDER gabapentin 2019-10 No Notes: Memor ia 300 [...] 104.545, kg, Daily, Start date: 09/05/20 9:00:00 TANKAGE GRINDER, Duration: 30 day, Stop date: 10/04/20 9:00:00 TANKAGE GRINDER gabapentin 2019-10 No Notes: Memor ia 300 MG Oral 2-06 (Same as: l Capsule 15:00: Neurontin) ropinirole 2019-10 No Notes: Memor ia 2-06 (Same as: l 15:00: Requip) Bupropion 2019-10 No Notes: Memori a 2-06 (Same as: l 15:00: Wellbutrin [place] 00 XL) "Do Not Crush" carvedilol 2019-10 [...] inhalation l 62.5 mcg-25 15:00: , [facility] , Drug powder Form: PWDR, Dosing Weight 104.545, kg, Daily, Start date: 09/05/20 9:00:00 TANKAGE GRINDER, Duration: 30 day, Stop date: 10/04/20 9:00:00 TANKAGE GRINDER gabapentin 2019-10 No Notes: Memor ia 300 [...] 104.545, kg, Daily, Start date: 09/05/20 9:00:00 TANKAGE GRINDER, Duration: 30 day, Stop date: 10/04/20 9:00:00 TANKAGE GRINDER gabapentin 2019-10 No Notes: Memor ia 300 [...] 104.545, kg, Daily, Start date: 09/05/20 9:00:00 TANKAGE GRINDER, Duration: 30 day, Stop date: 10/04/20 9:00:00 TANKAGE GRINDER gabapentin 2019-10 No Notes: Memor ia 300 MG Oral 2-06 (Same as: l Capsule 15:00: Neurontin) ropinirole 2019-10 No Notes: Memor ia 2-06 (Same as: l 15:00: Requip) Raul 00 Streptococc 2020- No Notes: Jose Francisco zhang us 2-06 Shake well l pneumoniae 14:12: prior to Her ivory serotype 1 45 use (Same capsular as: antigen Prevnar diphtheria 13) [id number] protein conjugate vaccine / Streptococc us pneumoniae serotype 14 capsular antigen diphtheria [id number] protein conjugate vaccine / Streptococc us pneumoniae serotype 18C capsular antigen d Streptococc 2020- No Notes: Jose Francisco zhang us 2-06 Shake well l pneumoniae 14:12: prior to Her ivory serotype 1 45 use (Same capsular as: antigen Prevnar diphtheria 13) [id number] protein conjugate vaccine / Streptococc us pneumoniae serotype 14 capsular antigen diphtheria [id number] protein conjugate vaccine / Streptococc us pneumoniae serotype 18C capsular antigen d Streptococc 2019-10 No Notes: Jose Francisco zhang us 2-06 Shake well l pneumoniae 14:12: prior to Her ivory serotype 1 45 use (Same capsular as: antigen Prevnar diphtheria 13) [id number] protein conjugate vaccine / Streptococc us pneumoniae serotype 14 capsular antigen diphtheria [id number] protein conjugate vaccine / Streptococc us pneumoniae serotype 18C capsular antigen d Streptococc 2019-10 No Notes: Jose Francisco zhang 2-06 Shake well l pneumoniae 14:12: prior to Her ivory serotype 1 45 use (Same capsular as: antigen Prevnar diphtheria 13) [id number] protein conjugate vaccine / Streptococc us pneumoniae serotype 14 capsular antigen diphtheria [id number] protein conjugate vaccine / Streptococc us pneumoniae serotype 18C capsular antigen d Streptococc 2019-10 No Notes: Jose Francisco zhang 2-06 Shake well l pneumoniae 14:12: prior to Her ivory serotype 1 45 use (Same capsular as: antigen Prevnar diphtheria 13) [id number] protein conjugate vaccine / Streptococc us pneumoniae serotype 14 capsular antigen diphtheria [id number] protein conjugate vaccine / Streptococc us pneumoniae serotype 18C capsular antigen d Streptococc 2019-10 No Notes: Jose Francisco zhang us 2-06 Shake well l pneumoniae 14:12: prior to Her ivory serotype 1 45 use (Same capsular as: antigen Prevnar diphtheria 13) [id number] protein conjugate vaccine / Streptococc us pneumoniae serotype 14 capsular antigen diphtheria [id number] protein conjugate vaccine / Streptococc us pneumoniae serotype 18C capsular antigen d Streptococc 2019- No Notes: Jose Francisco zhang us 2-06 Shake well l pneumoniae 14:12: prior to Her ivory serotype 1 45 use (Same capsular as: antigen Prevnar diphtheria 13) [id number] protein conjugate vaccine / Streptococc us pneumoniae serotype 14 capsular antigen diphtheria [id number] protein conjugate vaccine / Streptococc us pneumoniae serotype 18C capsular antigen d Streptococc 2020- No Notes: Jose Francisco zhang us 2-06 Shake well l pneumoniae 14:12: prior to Her ivory serotype 1 45 use (Same capsular as: antigen Prevnar diphtheria 13) [id number] protein conjugate vaccine / Streptococc us pneumoniae serotype 14 capsular antigen diphtheria [id number] protein conjugate vaccine / Streptococc us pneumoniae serotype 18C capsular antigen d Streptococc 2020- No Notes: Jose Francisco zhang us 2-06 Shake well l pneumoniae 14:12: prior to Her ivory serotype 1 45 use (Same capsular as: antigen Prevnar diphtheria 13) [id number] protein conjugate vaccine / Streptococc us pneumoniae serotype 14 capsular antigen diphtheria [id number] protein conjugate vaccine / Streptococc us pneumoniae serotype 18C capsular antigen d Streptococc 2020- No Notes: Jose Francisco zhang us 2-06 Shake well l pneumoniae 14:12: prior to Her ivory serotype 1 45 use (Same capsular as: antigen Prevnar diphtheria 13) [id number] protein conjugate vaccine / Streptococc us pneumoniae serotype 14 capsular antigen diphtheria [id number] protein conjugate vaccine / Streptococc us pneumoniae serotype 18C capsular antigen d Streptococc 2020- No Notes: Jose Francisco zhang us 2-06 Shake well l pneumoniae 14:12: prior to Her ivory serotype 1 45 use (Same capsular as: antigen Prevnar diphtheria 13) [id number] protein conjugate vaccine / Streptococc us pneumoniae serotype 14 capsular antigen diphtheria [id number] protein conjugate vaccine / Streptococc us pneumoniae serotype 18C capsular antigen d Streptococc 2020- No Notes: Jose Francisco zhang us 2-06 Shake well l pneumoniae 14:12: prior to Her viory serotype 1 45 use (Same capsular as: antigen Prevnar diphtheria 13) [id number] protein conjugate vaccine / Streptococc us pneumoniae serotype 14 capsular antigen diphtheria [id number] protein conjugate vaccine / Streptococc us pneumoniae serotype 18C capsular antigen d Streptococc 2020- No Notes: Jose Francisco zhang us 2-06 Shake well l pneumoniae 14:12: prior to Her ivory serotype 1 45 use (Same capsular as: antigen Prevnar diphtheria 13) [id number] protein conjugate vaccine / Streptococc us pneumoniae serotype 14 capsular antigen diphtheria [id number] protein conjugate vaccine / Streptococc us pneumoniae serotype 18C capsular antigen d Thyroxine 2019- No Notes: Memori a 2-06 Take 1 l 14:00: hour [place] 00 before or 2 hours after meal; [...] a 2-06 Take 1 l 14:00: hour [place] 00 before or 2 hours after meal; Enteral feeds may interefere with the absorption of this medication . (Same as:Levothr oid) Thyroxine 2019-10 No Notes: Memori a 2-06 Take 1 l 14:00: hour [place] 00 before or 2 hours after meal; Enteral feeds may interefere with the absorption of this medication . (Same as:Levothr oid) Thyroxine 2019-10 No Notes: Memori a 2-06 Take 1 l 14:00: hour [place] 00 before or 2 hours after meal; Enteral feeds may interefere with the absorption of this medication . (Same as:Levothr oid) Thyroxine 2019-10 No Notes: Memori a 2-06 Take 1 l 14:00: hour [place] 00 before or 2 hours after meal; Enteral feeds may interefere with the absorption of this medication . (Same as:Levothr oid) Thyroxine 2019-10 No Notes: Memori a 2-06 Take 1 l 14:00: hour [place] 00 before or 2 hours after meal; Enteral feeds may interefere with the absorption of this medication . (Same as:Levothr oid) Thyroxine 2019-10 No Notes: Memori a 2-06 Take 1 l 14:00: hour [place] 00 before or 2 hours after meal; [...] this medication . (Same as:Levothr oid) Iohexol 2020-1 No 100 mL, Memoria 2-06 Route: l 12:39: IVP, Drug [place] 00 Form: SOLN, Dosing Weight 104.545, kg, ONCALL, STAT, Start date: 09/05/20 6:39:00 TANKAGE GRINDER, Duration: 1 doses or times, Dose = 2.2ml/kg, Max dose = 100ml -- "To be infused by Radiology Staff ONLY" Iohexol 2020-1 No 100 mL, Memoria 2- Route: l 12:39: IVP, Drug [place] 00 Form: SOLN, Dosing Weight 104.545, kg, ONCALL, STAT, Start date: 09/05/20 6:39:00 TANKAGE GRINDER, Duration: 1 doses or times, Dose = 2.2ml/kg, Max dose = 100ml -- "To be infused by Radiology Staff ONLY" Iohexol 2020-1 No 100 mL, Memoria 2-06 Route: l 12:39: IVP, Drug [place] 00 Form: SOLN, Dosing Weight 104.545, kg, ONCALL, STAT, Start date: 09/05/20 6:39:00 TANKAGE GRINDER, Duration: 1 doses or times, Dose = 2.2ml/kg, Max dose = 100ml -- "To be infused by Radiology Staff ONLY" Iohexol 2020-1 No 100 mL, Memoria 2-06 Route: l 12:39: IVP, Drug [place] 00 Form: SOLN, Dosing Weight 104.545, kg, ONCALL, STAT, Start date: 09/05/20 6:39:00 TANKAGE GRINDER, Duration: 1 doses or times, Dose = 2.2ml/kg, Max dose = 100ml -- "To be infused by Radiology Staff ONLY" Iohexol 2020-1 No 100 mL, Memoria 2-06 Route: l 12:39: IVP, Drug [place] 00 Form: SOLN, Dosing Weight 104.545, kg, ONCALL, STAT, Start date: 09/05/20 6:39:00 TANKAGE GRINDER, Duration: 1 doses or times, Dose = 2.2ml/kg, Max dose = 100ml -- "To be infused by Radiology Staff ONLY" Iohexol 2020-1 No 100 mL, Memoria 2-06 Route: l 12:39: IVP, Drug [place] 00 Form: SOLN, Dosing Weight 104.545, kg, ONCALL, STAT, Start date: 09/05/20 6:39:00 TANKAGE GRINDER, Duration: 1 doses or times, Dose = 2.2ml/kg, Max dose = 100ml -- "To be infused by Radiology Staff ONLY" Iohexol 2020-1 No 100 mL, Memoria 2-06 Route: l 12:39: IVP, Drug [place] 00 Form: SOLN, Dosing Weight 104.545, kg, ONCALL, STAT, Start date: 09/05/20 6:39:00 TANKAGE GRINDER, Duration: 1 doses or times, Dose = 2.2ml/kg, Max dose = 100ml -- "To be infused by Radiology Staff ONLY" Iohexol 2020-1 No 100 mL, Memoria 2-06 Route: l 12:39: IVP, Drug [place] 00 Form: SOLN, Dosing Weight 104.545, kg, ONCALL, STAT, Start date: 09/05/20 6:39:00 TANKAGE GRINDER, Duration: 1 doses or times, Dose = 2.2ml/kg, Max dose = 100ml -- "To be infused by Radiology Staff ONLY" Iohexol 2020-1 No 100 mL, Memoria 2-06 Route: l 12:39: IVP, Drug [place] 00 Form: SOLN, Dosing Weight 104.545, kg, ONCALL, STAT, Start date: 09/05/20 6:39:00 TANKAGE GRINDER, Duration: 1 doses or times, Dose = 2.2ml/kg, Max dose = 100ml -- "To be infused by Radiology Staff ONLY" Iohexol 2020-1 No 100 mL, Memoria 2-06 Route: l 12:39: IVP, Drug [place] 00 Form: SOLN, Dosing Weight 104.545, kg, ONCALL, STAT, Start date: 09/05/20 6:39:00 TANKAGE GRINDER, Duration: 1 doses or times, Dose = 2.2ml/kg, Max dose = 100ml -- "To be infused by Radiology Staff ONLY" Iohexol 2019-1 No 100 mL, Memoria 2-06 Route: l 12:39: IVP, Drug [place] 00 Form: SOLN, Dosing Weight 104.545, kg, ONCALL, STAT, Start date: 09/05/20 6:39:00 TANKAGE GRINDER, Duration: 1 doses or times, Dose = 2.2ml/kg, Max dose = 100ml -- "To be infused by Radiology Staff ONLY" Iohexol 2019-1 No 100 mL, Memoria 2-06 Route: l 12:39: IVP, Drug [place] 00 Form: SOLN, Dosing Weight 104.545, kg, ONCALL, STAT, Start date: 09/05/20 6:39:00 TANKAGE GRINDER, Duration: 1 doses or times, Dose = 2.2ml/kg, Max dose = 100ml -- "To be infused by Radiology Staff ONLY" Iohexol 2019-1 No 100 mL, Memoria 2-06 Route: l 12:39: IVP, Drug [place] 00 Form: SOLN, Dosing Weight 104.545, kg, ONCALL, STAT, Start date: 09/05/20 6:39:00 TANKAGE GRINDER, Duration: 1 doses or times, Dose = 2.2ml/kg, Max dose = 100ml -- "To be infused by Radiology Staff ONLY" Acetaminoph 2019-10 No Notes: Max Memoria en 2-06 acetaminop l 07:00: hen 4000 [place] 00 mg/day (4 gm/day). (Same as: Tylenol Extra Strength) Acetaminoph 2019-10 No Notes: Max [facility]oria en 2-06 acetaminop l 07:00: hen 4000 [place] 00 mg/day (4 gm/day). (Same as: Tylenol Extra Strength) Acetaminoph 2019-10 No Notes: Max [facility] en 2-06 acetaminop l 07:00: hen 4000 [place] 00 mg/day (4 gm/day). (Same as: Tylenol Extra Strength) Acetaminoph 2019-10 No Notes: Max [facility]oria en 2-06 acetaminop l 07:00: hen 4000 [place] 00 mg/day (4 gm/day). (Same as: Tylenol Extra Strength) Acetaminoph 2019-10 No Notes: Max Memoria en 2-06 acetaminop l 07:00: hen 4000 [place] 00 mg/day (4 gm/day). (Same as: Tylenol Extra Strength) Acetaminoph 2019-10 No Notes: Max [facility]oria en 2-06 acetaminop l 07:00: hen 4000 [place] 00 mg/day (4 gm/day). (Same as: Tylenol Extra Strength) Acetaminoph 2019-10 No Notes: Max [facility] en 2-06 acetaminop l 07:00: hen 4000 [place] 00 mg/day (4 gm/day). (Same as: Tylenol Extra Strength) Acetaminoph 2019-10 No Notes: Max Memoria en 2-06 acetaminop l 07:00: hen 4000 [place] 00 mg/day (4 gm/day). (Same as: Tylenol Extra Strength) Acetaminoph 2019-10 No Notes: Max [facility]oria en 2-06 acetaminop l 07:00: hen 4000 [place] 00 mg/day (4 gm/day). (Same as: Tylenol Extra Strength) Acetaminoph 2019-10 No Notes: Max [facility]oria en 2-06 acetaminop l 07:00: hen 4000 [place] 00 mg/day (4 gm/day). (Same as: Tylenol Extra Strength) Acetaminoph 2019-10 No Notes: Max Memoria en 2-06 acetaminop l 07:00: hen 4000 [place] 00 mg/day (4 gm/day). (Same as: Tylenol [...] tab, PO, l tablet 06:48: Daily, # [place] 00 90 tab, 0 Refill(s) escitalopra 2019-10 [...] tab, PO, l tablet 06:48: Daily, # [place] 00 90 tab, 0 Refill(s) escitalopra 2019-10 [...] l oral tablet 06:48: BID, # 180 [place] 00 tab, 1 Refill(s) amLODIPine 2019-10 Yes [...] l oral tablet 06:48: BID, # 180 [place] 00 tab, 1 Refill(s) amLODIPine 2019-10 Yes [...] tab, PO, l Tablet 06:48: Daily, # [place] 00 60 tab, 1 Refill(s) Trelegy 2019-10 [...] l oral tablet 06:48: BID, # 180 [place] 00 tab, 1 Refill(s) amLODIPine 2019-10 Yes [...] tab, PO, l Tablet 06:48: Daily, # [place] 00 60 tab, 1 Refill(s) Trelegy 2019-10 [...] tab, PO, l tablet 06:48: Daily, # [place] 00 90 tab, 0 Refill(s) escitalopra 2019-10 [...] tab, PO, l Tablet 06:48: Daily, # [place] 00 60 tab, 1 Refill(s) Trelegy 2019-10 [...] tab, PO, l Tablet 06:48: Daily, # [place] 00 60 tab, 1 Refill(s) Trelegy 2019-10 [...] tab, PO, l Tablet 06:48: Daily, # [place] 00 60 tab, 1 Refill(s) Trelegy 2019-10 [...] l oral tablet 06:48: BID, # 180 [place] 00 tab, 1 Refill(s) amLODIPine 2019-10 Yes [...] tab, PO, l tablet 06:48: Daily, # [place] 00 90 tab, 0 Refill(s) escitalopra 2019-10 [...] tab, PO, l Tablet 06:48: Daily, # [place] 00 60 tab, 1 Refill(s) amLODIPine 2019-10 Yes 10 mg = 1 Me moria 10 mg oral 2-06 tab, PO, l tablet 06:48: Daily, # [place] 00 90 tab, 0 Refill(s) Trelegy 2019-10 [...] tab, PO, l Tablet 06:48: Daily, # [place] 00 60 tab, 1 Refill(s) Trelegy 2019-10 [...] tab, PO, l tablet 06:48: Daily, # [place] 00 90 tab, 0 Refill(s) escitalopra 2019-10 [...] l oral tablet 06:48: BID, # 180 [place] 00 tab, 1 Refill(s) amLODIPine 2019-10 Yes [...] 2 25 mL, l (D50W) 06:47: Route: IVP, Drug Form: INJ, Dosing Weight 104.545, kg, PRN, PRN Blood Glucose Results, Start date: 09/05/20 0:47:00 TANKAGE GRINDER, Duration: 30 day, Stop date: 10/05/20 0:46:00 TANKAGE GRINDER, 0 Glucagon 2019-10 No 1 mg, Memoria 2-06 Route: IM, l 06:47: Drug form: [place] 00 PDR/INJ, PRN, Dosing Weight 104.545, kg, PRN Blood Glucose Results, Start date: 09/05/20 0:47:00 TANKAGE GRINDER, Duration: 30 day, Stop date: 10/05/20 0:46:00 TANKAGE GRINDER, 0 sennosides, 2019-10 No Notes: Jose Francisco zhang CORRECTION 2-06 (Same as: l 06:47: Senokot) POLYETHYLEN [...] Total Volume: 1,000, Start date: 09/05/20 0:47:00 TANKAGE GRINDER, Duration: 1 day, Stop date: 09/06/20 0:46:00 TANKAGE GRINDER, 1.97, m2, 0 Tums 2019-10 No Notes: [...] 0.65% 2- (Same as: l solution 06:47: [place], [place] 00 Deep Sea Nasal [place]). Tessalon 2019-10 No Notes: Memoria Perles 2- [...] Blood Glucose Results, Start date: 09/05/20 0:47:00 TANKAGE GRINDER, Duration: 30 day, Stop date: 10/05/20 0:46:00 TANKAGE GRINDER, 0 Glucagon 2019-10 No 1 mg, [facility] 11-06 Route: IM, l 06:47: Drug form: PDR/INJ, PRN, Dosing Weight 104.545, kg, PRN Blood Glucose Results, Start date: 09/05/20 0:47:00 TANKAGE GRINDER, Duration: 30 day, Stop date: 10/05/20 0:46:00 TANKAGE GRINDER, 0 sennosides, 2019-10 No Notes: Jose Francisco zhang CORRECTION 2-06 (Same as: l 06:47: Senokot) POLYETHYLEN 2019-10 No Notes: Jose Francisco zhang E GLYCOL 2-06 Dissolve l 3350 06:47: in 8 oz of water or juice. (Same as: Miralax) Ondansetron 2019-10 No Notes: Jose Francisco zhang 2-06 (Same as: l 06:47: Zofran) [place] 00 MEDICATION WASTE Product Size: 4 mg Product Wasted: ___ mg Melatonin 2019-10 No Notes: Memori a 2-06 (Same as: l 06:47: Melatonin) [place] 00 LR IV 1,000 2019-10 No 1,000 mL, M emoria mL 2-06 Rate: 100 l 06:47: ml/hr, [place] 00 Infuse over: 10 hr, Route: IV, Dosing Weight 104.545 kg, Total Volume: 1,000, Start date: 09/05/20 0:47:00 TANKAGE GRINDER, Duration: 1 day, Stop date: 09/06/20 0:46:00 TANKAGE GRINDER, 1.97, m2, 0 Tums 2019-10 No Notes: [facility] 2-06 (Same As: l 06:47: Tums) Calcium Carbonate 500 mg = 200 mg elemental calcium Dose = mg calcium carbonate ( mg elemental calcium) Simethicone 2019-10 No Notes: Jose Francisco zhang 2-06 (Same as: l 06:47: Mylicon) Lubricant 2019-10 No Notes: Memori a Eye Drops 2-06 (Same as: l 06:47: Aquasite) [place] 00 Nasal Moist 2019-10 No Notes: Jose Francisco zhang 0.65% 2-06 (Same as: l solution 06:47: [place], Raul Deep Sea Nasal [place]). Tessalon 2019-10 No Notes: Memoria Perles 2-06 [...] 2-06 25 mL, l (D50W) 06:47: Route: [place] 00 IVP, Drug Form: INJ, Dosing Weight 104.545, kg, PRN, PRN Blood Glucose Results, Start date: 09/05/20 0:47:00 TANKAGE GRINDER, Duration: 30 day, Stop date: 10/05/20 0:46:00 TANKAGE GRINDER, 0 Glucagon 2019-10 No 1 mg, Mem[facility] 2- Route: IM, l 06:47: Drug form: [place] 00 PDR/INJ, PRN, Dosing Weight 104.545, kg, PRN Blood Glucose Results, Start date: 09/05/20 0:47:00 TANKAGE GRINDER, Duration: 30 day, Stop date: 10/05/20 0:46:00 TANKAGE GRINDER, 0 sennosides, 2019-10 No Notes: Jose Francisco zhang CORRECTION 2-06 (Same as: l 06:47: Senokot) POLYETHYLEN [...] Total Volume: 1,000, Start date: 09/05/20 0:47:00 TANKAGE GRINDER, Duration: 1 day, Stop date: 09/06/20 0:46:00 TANKAGE GRINDER, 1.97, m2, 0 Tums 2019-10 No Notes: [...] 0.65% 2- (Same as: l solution 06:47: [place], Deep Sea Nasal [place]). 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 date: 09/05/20 0:47:00 TANKAGE GRINDER, Duration: 30 day, Stop date: 10/05/20 0:46:00 TANKAGE GRINDER, 0 Glucagon 2019-10 No 1 mg, Mem[facility] 2 Route: IM, l 06:47: Drug form: PDR/INJ, PRN, Dosing Weight 104.545, kg, PRN Blood Glucose Results, Start date: 09/05/20 0:47:00 TANKAGE GRINDER, Duration: 30 day, Stop date: 10/05/20 0:46:00 TANKAGE GRINDER, 0 sennosides, 2019-10 No Notes: Jose Francisco zhang CORRECTION 2-06 (Same as: l 06:47: Senokot) POLYETHYLEN [...] a 2-06 (Same as: l 06:47: Melatonin) [place] 00 LR IV 1,000 2019-10 No 1,000 mL, M emoria mL 2-06 Rate: 100 l 06:47: ml/hr, Infuse over: 10 hr, Route: IV, Dosing Weight 104.545 kg, Total Volume: 1,000, Start date: 09/05/20 0:47:00 TANKAGE GRINDER, Duration: 1 day, Stop date: 09/06/20 0:46:00 TANKAGE GRINDER, 1.97, m2, 0 Tums 2019-10 No Notes: [...] 0.65% 2-06 (Same as: l solution 06:47: [place], Raul Deep Sea Nasal [place]). Tessalon 2019-10 No Notes: Memoria Perles 2-06 [...] 2-06 25 mL, l (D50W) 06:47: Route: [place] IVP, Drug Form: INJ, Dosing Weight 104.545, kg, PRN, PRN Blood Glucose Results, Start date: 09/05/20 0:47:00 TANKAGE GRINDER, Duration: 30 day, Stop date: 10/05/20 0:46:00 TANKAGE GRINDER, 0 Glucagon 2019-10 No 1 mg, Memoria 2-06 Route: IM, l 06:47: Drug form: [place] PDR/INJ, PRN, Dosing Weight 104.545, kg, PRN Blood Glucose Results, Start date: 09/05/20 0:47:00 TANKAGE GRINDER, Duration: 30 day, Stop date: 10/05/20 0:46:00 TANKAGE GRINDER, 0 sennosides, 2019-10 No Notes: Jose Francisco zhang CORRECTION 2-06 (Same as: l 06:47: Senokot) POLYETHYLEN [...] Total Volume: 1,000, Start date: 09/05/20 0:47:00 TANKAGE GRINDER, Duration: 1 day, Stop date: 09/06/20 0:46:00 TANKAGE GRINDER, 1.97, m2, 0 Tums 2019-10 No Notes: [...] Nasal Moist 2019-10 No Notes: Jose Francisco zhnag 0.65% 2- (Same as: l solution 06:47: [place], Deep Sea Nasal [place]). 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 date: 09/05/20 0:47:00 TANKAGE GRINDER, Duration: 30 day, Stop date: 10/05/20 0:46:00 TANKAGE GRINDER, 0 Glucagon 2019-10 No 1 mg, Mem[facility] 2 Route: IM, l 06:47: Drug form: PDR/INJ, PRN, Dosing Weight 104.545, kg, PRN Blood Glucose Results, Start date: 09/05/20 0:47:00 TANKAGE GRINDER, Duration: 30 day, Stop date: 10/05/20 0:46:00 TANKAGE GRINDER, 0 sennosides, 2019-10 No Notes: Jose Francisco zhang CORRECTION 2-06 (Same as: l 06:47: Senokot) POLYETHYLEN [...] Total Volume: 1,000, Start date: 09/05/20 0:47:00 TANKAGE GRINDER, Duration: 1 day, Stop date: 09/06/20 0:46:00 TANKAGE GRINDER, 1.97, m2, 0 Tums 2019-10 No Notes: [...] 0.65% 2- (Same as: l solution 06:47: [place], [place] 00 Deep Sea Nasal [place]). Tessalon 2019-10 No Notes: Memoria Perles 2-06 (Same As: l 06:47: Tessalon Perles) "Do Not Crush" Guaifenesin 2019-10 No Notes: Jose Francisco zhang 2-06 (Same as: l 06:47: Organidin [place] 00 NR) Blistex 2019-10 No Notes: Memoria [...] Blood Glucose Results, Start date: 09/05/20 0:47:00 TANKAGE GRINDER, Duration: 30 day, Stop date: 10/05/20 0:46:00 TANKAGE GRINDER, 0 Glucagon 2019-10 No 1 mg, Memoria 2- Route: IM, l 06:47: Drug form: [place] 00 PDR/INJ, PRN, Dosing Weight 104.545, kg, PRN Blood Glucose Results, Start date: 09/05/20 0:47:00 TANKAGE GRINDER, Duration: 30 day, Stop date: 10/05/20 0:46:00 TANKAGE GRINDER, 0 sennosides, 2019-10 No Notes: Jose Francisco zhang CORRECTION 2-06 (Same as: l 06:47: Senokot) POLYETHYLEN [...] Total Volume: 1,000, Start date: 09/05/20 0:47:00 TANKAGE GRINDER, Duration: 1 day, Stop date: 09/06/20 0:46:00 TANKAGE GRINDER, 1.97, m2, 0 Tums 2019-10 No Notes: [...] 2019-10 No Notes: Jose Francisco zhang 0.65% 2 (Same as: l solution 06:47: [place], Deep Sea Nasal [place]). Tessalon 2019-10 No Notes: Memoria Perles 2- [...] Blood Glucose Results, Start date: 09/05/20 0:47:00 TANKAGE GRINDER, Duration: 30 day, Stop date: 10/05/20 0:46:00 TANKAGE GRINDER, 0 Glucagon 2019-10 No 1 mg, Memoria 11-06 Route: IM, l 06:47: Drug form: PDR/INJ, PRN, Dosing Weight 104.545, kg, PRN Blood Glucose Results, Start date: 09/05/20 0:47:00 TANKAGE GRINDER, Duration: 30 day, Stop date: 10/05/20 0:46:00 TANKAGE GRINDER, 0 sennosides, 2019-10 No Notes: Jose Francisco zhang CORRECTION 2-06 (Same as: l 06:47: Senokot) POLYETHYLEN [...] Total Volume: 1,000, Start date: 09/05/20 0:47:00 TANKAGE GRINDER, Duration: 1 day, Stop date: 09/06/20 0:46:00 TANKAGE GRINDER, 1.97, m2, 0 Tums 2019-10 No Notes: [...] 0.65% 2-06 (Same as: l solution 06:47: [place], [place] 00 Deep Sea Nasal [place]). Tessalon 2019-10 No Notes: Memoria Perles 2-06 (Same As: l 06:47: [place] Perles) "Do Not Crush" Guaifenesin 2019-10 No Notes: Jose Francisco zhang 2-06 (Same as: l 06:47: Organidin [place] 00 NR) Blistex 2019-10 No Notes: Memoria [...] Blood Glucose Results, Start date: 09/05/20 0:47:00 TANKAGE GRINDER, Duration: 30 day, Stop date: 10/05/20 0:46:00 TANKAGE GRINDER, 0 Glucagon 2019-10 No 1 mg, Memoria 11-06 Route: IM, l 06:47: Drug form: [place] 00 PDR/INJ, PRN, Dosing Weight 104.545, kg, PRN Blood Glucose Results, Start date: 09/05/20 0:47:00 TANKAGE GRINDER, Duration: 30 day, Stop date: 10/05/20 0:46:00 TANKAGE GRINDER, 0 sennosides, 2019-10 No Notes: Jose Francisco zhang CORRECTION 2-06 (Same as: l 06:47: Senokot) [place] POLYETHYLEN 2019-10 No Notes: Jose Francisco zhang [...] Total Volume: 1,000, Start date: 09/05/20 0:47:00 TANKAGE GRINDER, Duration: 1 day, Stop date: 09/06/20 0:46:00 TANKAGE GRINDER, 1.97, m2, 0 Tums 2019-10 No Notes: [...] 0.65% 2- (Same as: l solution 06:47: [place], Deep Sea Nasal [place]). Tessalon 2019-10 No Notes: Memoria Perles 2- [...] Blood Glucose Results, Start date: 09/05/20 0:47:00 TANKAGE GRINDER, Duration: 30 day, Stop date: 10/05/20 0:46:00 TANKAGE GRINDER, 0 Glucagon 2019-10 No 1 mg, Memoria 2- Route: IM, l 06:47: Drug form: PDR/INJ, PRN, Dosing Weight 104.545, kg, PRN Blood Glucose Results, Start date: 09/05/20 0:47:00 TANKAGE GRINDER, Duration: 30 day, Stop date: 10/05/20 0:46:00 TANKAGE GRINDER, 0 sennosides, 2019-10 No Notes: Jose Francisco zhang CORRECTION 2-06 (Same as: l 06:47: Senokot) POLYETHYLEN [...] Total Volume: 1,000, Start date: 09/05/20 0:47:00 TANKAGE GRINDER, Duration: 1 day, Stop date: 09/06/20 0:46:00 TANKAGE GRINDER, 1.97, m2, 0 Tums 2019-10 No Notes: [...] 0.65% 2-06 (Same as: l solution 06:47: [place], [place] 00 Deep Sea Nasal [place]). 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 date: 09/05/20 0:47:00 TANKAGE GRINDER, Duration: 30 day, Stop date: 10/05/20 0:46:00 TANKAGE GRINDER, 0 Glucagon 2019-10 No 1 mg, Memoria 11-06 Route: IM, l 06:47: Drug form: [place] 00 PDR/INJ, PRN, Dosing Weight 104.545, kg, PRN Blood Glucose Results, Start date: 09/05/20 0:47:00 TANKAGE GRINDER, Duration: 30 day, Stop date: 10/05/20 0:46:00 TANKAGE GRINDER, 0 sennosides, 2019-10 No Notes: Jose Francisco zhang CORRECTION 2-06 (Same as: l 06:47: Senokot) POLYETHYLEN [...] Total Volume: 1,000, Start date: 09/05/20 0:47:00 TANKAGE GRINDER, Duration: 1 day, Stop date: 09/06/20 0:46:00 TANKAGE GRINDER, 1.97, m2, 0 Tums 2019-10 No Notes: [...] 0.65% 2-06 (Same as: l solution 06:47: [place], Deep Sea Nasal [place]). Tessalon 2019-10 No Notes: Memoria Perles 2-06 (Same As: l 06:47: Tess[place] Perles) "Do Not Crush" Guaifenesin 2019-10 No Notes: Jose Francisco zhang 2-06 (Same as: l 06:47: Organidin NR) Dextrose 2019-10 No 12.5 gm, Memor ia 50% Syringe 2-06 25 mL, l (D50W) 06:47: Route: IVP, Drug Form: INJ, Dosing Weight 104.545, kg, PRN, PRN Blood Glucose Results, Start date: 09/05/20 0:47:00 TANKAGE GRINDER, Duration: 30 day, Stop date: 10/05/20 0:46:00 TANKAGE GRINDER, 0 Glucagon 2019-10 No 1 mg, Memoria 2- Route: IM, l 06:47: Drug form: PDR/INJ, PRN, Dosing Weight 104.545, kg, PRN Blood Glucose Results, Start date: 09/05/20 0:47:00 TANKAGE GRINDER, Duration: 30 day, Stop date: 10/05/20 0:46:00 TANKAGE GRINDER, 0 sennosides, 2019-10 No Notes: Jose Francisco zhang CORRECTION 2-06 (Same as: l 06:47: Senokot) POLYETHYLEN 2019-10 No Notes: Jsoe Francisco zhang E GLYCOL 2-06 Dissolve l 3350 06:47: in 8 oz of Raul 00 water or juice. (Same as: Miralax) Ondansetron 2019-10 No Notes: Jose Francisco zhang 2-06 (Same as: l 06:47: Zofran) [place] 00 MEDICATION WASTE Product Size: 4 mg Product Wasted: ___ mg Melatonin 2019-10 No Notes: Memori a 2-06 (Same as: l 06:47: Melatonin) [place] 00 Blistex 2019-10 No Notes: Memoria topical 2-06 Same as: l ointment 06:47: Blistex Ajay n 00 LR IV 1,000 2019-10 No 1,000 mL, M emoria mL 2-06 Rate: 100 l 06:47: ml/hr, [place] 00 Infuse over: 10 hr, Route: IV, Dosing Weight 104.545 kg, Total Volume: 1,000, Start date: 09/05/20 0:47:00 TANKAGE GRINDER, Duration: 1 day, Stop date: 09/06/20 0:46:00 TANKAGE GRINDER, 1.97, m2, 0 Tums 2019-10 No Notes: Memoria 2-06 (Same As: l 06:47: Tums) [place] 00 Calcium Carbonate 500 mg = 200 mg elemental calcium Dose = mg calcium carbonate ( mg elemental calcium) Simethicone 2019-10 No Notes: Jose Francisco zhang 2-06 (Same as: l 06:47: Mylicon) [place] 00 Lubricant 2019-10 No Notes: Memori a Eye Drops 2-06 (Same as: l 06:47: Aquasite) Raul 00 Nasal Moist 2019-10 No Notes: Jose Francisco zhang 0.65% 2-06 (Same as: l solution 06:47: [place], [place] 00 Deep Sea Nasal [place]). Tessalon 2019-10 No Notes: Memoria Perles 2-06 (Same As: l 06:47: Tessalon [place] 00 Perles) "Do Not Crush" Guaifenesin 2019-10 No Notes: Jose Francisco zhang 2-06 (Same as: l 06:47: Organidin [place] 00 NR) Blistex 2019-10 No Notes: Memoria [...] 2-06 25 mL, l (D50W) 06:47: Route: [place] 00 IVP, Drug Form: INJ, Dosing Weight 104.545, kg, PRN, PRN Blood Glucose Results, Start date: 09/05/20 0:47:00 TANKAGE GRINDER, Duration: 30 day, Stop date: 10/05/20 0:46:00 TANKAGE GRINDER, 0 Glucagon 2019-10 No 1 mg, Memoria 11-06 Route: IM, l 06:47: Drug form: [place] 00 PDR/INJ, PRN, Dosing Weight 104.545, kg, PRN Blood Glucose Results, Start date: 09/05/20 0:47:00 TANKAGE GRINDER, Duration: 30 day, Stop date: 10/05/20 0:46:00 TANKAGE GRINDER, 0 sennosides, 2019-10 No Notes: Jose Francisco zhang CORRECTION 2-06 (Same as: l 06:47: Senokot) POLYETHYLEN [...] Total Volume: 1,000, Start date: 09/05/20 0:47:00 TANKAGE GRINDER, Duration: 1 day, Stop date: 09/06/20 0:46:00 TANKAGE GRINDER, 1.97, m2, 0 Tums 2019-10 No Notes: Memoria 2-06 (Same As: l 06:47: Tums) [place] 00 Calcium Carbonate 500 mg = 200 mg elemental calcium Dose = mg calcium carbonate ( mg elemental calcium) Simethicone 2019-10 No Notes: Jose Francisco zhang 2-06 (Same as: l 06:47: Mylicon) [place] 00 Lubricant 2019-10 No Notes: Memori a Eye Drops 2-06 (Same as: l 06:47: Aquasite) Nasal Moist 2019-10 No Notes: Jose Francisco zhang 0.65% 2-06 (Same as: l solution 06:47: [place], Raul 00 Deep Sea Nasal [place]). Tessalon 2019-10 No Notes: Memoria Perles 2-06 (Same As: l 06:47: Tessalon Perles) "Do Not Crush" Guaifenesin 2019-10 No Notes: Jose Francisco zhang 2-06 (Same as: l 06:47: Organidin [place] 00 NR) Blistex 2019-10 No Notes: Memoria topical 2-06 Same as: l ointment 06:47: Blistex Ajay n 00 Albuterol 2019-10 No Notes: SEE Me moria 0.83 MG/ML 2-06 RT l Inhalant 06:47: DOCUMENTAT Her ivory Solution 00 ION (Same as: Proventil) Hydralazine 2019-10 No Notes: Jose Francisco zhang 2-06 (Same as: l 06:45: Apresoline [place] 00 ) Push over 5 minutes Hydralazine 2019-10 No Notes: Jose Francisco zhang 2-06 (Same as: l 06:45: Apresoline [place] 00 ) Push over 5 minutes Hydralazine 2019-10 No Notes: Jose Francisco zhang 2-06 (Same as: l 06:45: Apresoline Raul 00 ) Push over 5 minutes Hydralazine 2019-10 No Notes: Jose Francisco zhang 2-06 (Same as: l 06:45: Apresoline [place] 00 ) Push over 5 minutes Hydralazine 2019-10 No Notes: Jose Francisco zhang 2-06 (Same as: l 06:45: Apresoline Raul 00 ) Push over 5 minutes Hydralazine 2019-10 No Notes: Jose Francisco zhang 2-06 (Same as: l 06:45: Apresoline Raul 00 ) Push over 5 minutes Hydralazine 2019-10 No Notes: Jose Francisco zhang 2-06 (Same as: l 06:45: Apresoline [place] 00 ) Push over 5 minutes Hydralazine 2019-10 No Notes: Jose Francisco zhang 2-06 (Same as: l 06:45: Apresoline [place] 00 ) Push over 5 minutes Hydralazine 2019-10 No Notes: Jose Francisco zhang 2-06 (Same as: l 06:45: Apresoline [place] 00 ) Push over 5 minutes Hydralazine 2019-10 No Notes: Jose Francisco zhang 2-06 (Same as: l 06:45: Apresoline [place] 00 ) Push over 5 minutes Hydralazine 2019-10 No Notes: Jose Francisco zhang 2-06 (Same as: l 06:45: Apresoline [place] 00 ) Push over 5 minutes Hydralazine [...] kg, ONCE, STAT, Start date: 09/04/20 22:07:00 TANKAGE GRINDER, Stop date: 09/04/20 22:07:00 TANKAGE GRINDER Acetaminoph 2019-10 No 1 tab, Jose Francisco zhang en 325 MG / 2-06 Route: PO, l Hydrocodone 04:07: Drug Form: [place] Bitartrate 00 TAB, 5 MG Oral Dosing Tablet Weight 104.545, kg, ONCE, STAT, Start date: 09/04/20 22:07:00 TANKAGE GRINDER, Stop date: 09/04/20 22:07:00 TANKAGE GR[employer]ER Acetaminoph 2019-10 No 1 tab, Jose Francisco zhang en 325 MG / 2-06 Route: PO, l Hydrocodone 04:07: Drug Form: Raul Bitartrate 00 TAB, 5 MG Oral Dosing Tablet Weight 104.545, kg, ONCE, STAT, Start date: 09/04/20 22:07:00 TANKAGE GRINDER, Stop date: 09/04/20 22:07:00 TANKAGE GRINDER Acetaminoph 2019-10 No 1 tab, Jose Francisco zhang en 325 MG / 2-06 Route: PO, l Hydrocodone 04:07: Drug Form: Raul Bitartrate 00 TAB, 5 MG Oral Dosing Tablet Weight 104.545, kg, ONCE, STAT, Start date: 09/04/20 22:07:00 TANKAGE GRINDER, Stop date: 09/04/20 22:07:00 T[employer]AGE GR[employer]ER Acetaminoph 2019-10 No 1 tab, Jose Francisco zhang en 325 MG / 2-06 Route: PO, l Hydrocodone 04:07: Drug Form: Raul Bitartrate 00 TAB, 5 MG Oral Dosing Tablet Weight 104.545, kg, ONCE, STAT, Start date: 09/04/20 22:07:00 TANKAGE GRINDER, Stop date: 09/04/20 22:07:00 T[employer]AGE GRINDER Acetaminoph 2019-10 No 1 tab, Jose Francisco zhang en 325 MG / 2-06 Route: PO, l Hydrocodone 04:07: Drug Form: Raul Bitartrate 00 TAB, 5 MG Oral Dosing Tablet Weight 104.545, kg, ONCE, STAT, Start date: 09/04/20 22:07:00 TANKAGE GRINDER, Stop date: 09/04/20 22:07:00 TANKAGE GRINDER Acetaminoph 2019-10 No 1 tab, Jose Francisco zhang en 325 MG / 2-06 Route: PO, l Hydrocodone 04:07: Drug Form: [place] Bitartrate 00 TAB, 5 MG Oral Dosing Tablet Weight 104.545, kg, ONCE, STAT, Start date: 09/04/20 22:07:00 TANKAGE GRINDER, Stop date: 09/04/20 22:07:00 TANKAGE GRINDER Acetaminoph 2019-10 No 1 tab, Jose Francisco zhang en 325 MG / 2-06 Route: PO, l Hydrocodone 04:07: Drug Form: Raul Bitartrate 00 TAB, 5 MG Oral Dosing Tablet Weight 104.545, kg, ONCE, STAT, Start date: 09/04/20 22:07:00 TANKAGE GRINDER, Stop date: 09/04/20 22:07:00 TANKAGE GRINDER Acetaminoph 2019-10 No 1 tab, Jose Francisco zhang en 325 MG / 2-06 Route: PO, l Hydrocodone 04:07: Drug Form: Raul Bitartrate 00 TAB, 5 MG Oral Dosing Tablet Weight 104.545, kg, ONCE, STAT, Start date: 09/04/20 22:07:00 TANKAGE GRINDER, Stop date: 09/04/20 22:07:00 TANKAGE GRINDER Acetaminoph 2019-10 No 1 tab, Jose Francisco zhang en 325 MG / 2-06 Route: PO, l Hydrocodone 04:07: Drug Form: [place] Bitartrate 00 TAB, 5 MG Oral Dosing Tablet Weight 104.545, kg, ONCE, STAT, Start date: 09/04/20 22:07:00 TANKAGE GRINDER, Stop date: 09/04/20 22:07:00 TANKAGE GRINDER Acetaminoph 2019-10 No 1 tab, Jose Francisco zhang en 325 MG / 2-06 Route: PO, l Hydrocodone 04:07: Drug Form: [place] Bitartrate 00 TAB, 5 MG Oral Dosing Tablet Weight 104.545, kg, ONCE, STAT, Start date: 09/04/20 22:07:00 TANKAGE GRINDER, Stop date: 09/04/20 22:07:00 TANKAGE GRINDER Acetaminoph 2019-10 No 1 tab, Jose Francisco zhang en 325 MG / 2-06 Route: PO, l Hydrocodone 04:07: Drug Form: [place] Bitartrate 00 TAB, 5 MG Oral Dosing Tablet Weight 104.545, kg, ONCE, STAT, Start date: 09/04/20 22:07:00 TANKAGE GRINDER, Stop date: 09/04/20 22:07:00 TANKAGE GRINDER Acetaminoph 2019-10 No 1 tab, Jose Francisco zhang en 325 MG / 2-06 Route: PO, l Hydrocodone 04:07: Drug Form: [place] Bitartrate 00 TAB, 5 MG Oral Dosing Tablet Weight 104.545, kg, ONCE, STAT, Start date: 09/04/20 22:07:00 TANKAGE GRINDER, Stop date: 09/04/20 22:07:00 TANKAGE GRINDER HYDROcodone 2020-0 2020- No 1{tbl} 1 tablet, Univers -acetaminop 06-28 Oral, ity of hen (NORCO 20:30: 19:23 ONCE, 1 Carlos as 5) 5-325 mg 00 :00 dose, Mon Med ical tablet 1 06/28/20 at [facility] h tablet 1530, DIMITRIS metoprolol 2019-0 2020- [...] mg 06/28/20 at [facility] 1315, Routine amLODIPine 2019-2019- No 5mg 5 mg, Unive rs (NORVASC) 06-28 Oral, ity of tablet 5 mg 18:15: 17:25 [place]CE[place] dose, Mon Medical 06/28/20 at [facility] 1315, DIMITRIS FENTanyl PF 2019- 2020- No 25ug 25 mcg, Un martha (SUBLIMAZE 06-28 Slow IV ity o f (PF)) 18:15: 17:30 Push, [place] injection 00 :00 ONCE, 1 Medical 25 mcg dose, [facility] Branch 06/28/20 at 1315, STAT diphenoxyla 2020-0 Yes 1{tbl} Take 1 Un martha te-atropine 06-28 tablet by ity of (LOMOTIL) 17:14: mouth [place] 2.5-0.025 43 every 6 Medical mg tablet (six) Branch hours as needed. ALBUTEROL 2020-0 Yes Inhale. [facility] [...] rs SULFATE 9-28 ity of INHALE 12:14: [place] [address] Medical Branch diphenoxyla 2020-0 Yes 1{tbl} Take 1 Un martha te-atropine 9-28 tablet by ity of (LOMOTIL) 12:14: mouth [place] 2.5-0.025 43 every 6 Medical mg tablet (six) Branch hours as needed. ALBUTEROL 2020-0 Yes Inhale. Unive rs SULFATE 9-28 ity of INHALE 12:14: [place] [address] Medical Branch acetaminoph 2020-0 Yes 4647 1{tbl} [...] Jessie nn 00 tab, 3 Refill(s), Pharmacy: [facility] #[id number], 149.86, cm, 05/25/20 13:41:00 CDT, Height, 95.455, kg, 05/25/20 13:41:00 CDT, Weight primidone 2020-0 Yes 50 mg = 1 Mem oria 50 mg oral 8-25 tab, PO, l tablet 19:03: BID, # 180 Jessie nn 00 tab, 3 Refill(s), Pharmacy: [facility] #[id number], 149.86, cm, 05/25/20 13:41:00 CDT, Height, 95.455, kg, 05/25/20 13:41:00 CDT, Weight primidone 2020-0 Yes 50 mg = 1 Mem oria 50 mg oral 8-25 tab, PO, l tablet 19:03: BID, # 180 Jessie nn 00 tab, 3 Refill(s), Pharmacy: [facility] #[id number], 149.86, cm, 05/25/20 13:41:00 CDT, Height, 95.455, kg, 05/25/20 13:41:00 CDT, Weight primidone 2020-0 Yes 50 mg = 1 Mem oria 50 mg oral 8-25 tab, PO, l tablet 19:03: BID, # 180 Jessie nn 00 tab, 3 Refill(s), Pharmacy: [facility] #[id number], 149.86, cm, 05/25/20 13:41:00 CDT, Height, 95.455, kg, 05/25/20 13:41:00 CDT, Weight primidone 2020-0 Yes 50 mg = 1 Mem oria 50 mg oral 8-25 tab, PO, l tablet 19:03: BID, # 180 Jesise nn 00 tab, 3 Refill(s), Pharmacy: [facility] #[id number], 149.86, cm, 05/25/20 13:41:00 CDT, Height, 95.455, kg, 05/25/20 13:41:00 CDT, Weight primidone 2020-0 Yes 50 mg = 1 Mem oria 50 mg oral 8-25 tab, PO, l tablet 19:03: BID, # 180 Jessie nn 00 tab, 3 Refill(s), Pharmacy: [facility] #[id number], 149.86, cm, 05/25/20 13:41:00 CDT, Height, 95.455, kg, 05/25/20 13:41:00 CDT, Weight primidone 2020-0 Yes 50 mg = 1 Mem oria 50 mg oral 8-25 tab, PO, l tablet 19:03: BID, # 180 Jessie nn 00 tab, 3 Refill(s), Pharmacy: [facility] #[id number], 149.86, cm, 05/25/20 13:41:00 CDT, Height, 95.455, kg, 05/25/20 13:41:00 CDT, Weight primidone 2020-0 Yes 50 mg = 1 Mem o[place] 50 mg oral 8-25 tab, PO, l tablet 19:03: BID, # 180 Jessie nn 00 tab, 3 Refill(s), Pharmacy: [facility] #[id number], 149.86, cm, 05/25/20 13:41:00 CDT, Height, 95.455, kg, 05/25/20 13:41:00 CDT, Weight primidone 2020-0 Yes 50 mg = 1 Mem o[place] 50 mg oral 8-25 tab, PO, l tablet 19:03: BID, # 180 Jessie nn 00 tab, 3 Refill(s), Pharmacy: [facility] #[id number], 149.86, cm, 05/25/20 13:41:00 CDT, Height, 95.455, kg, 05/25/20 13:41:00 CDT, Weight primidone 2020-0 Yes 50 mg = 1 Mem [place] 50 mg oral 8-25 tab, PO, l tablet 19:03: BID, # 180 Jessie nn 00 tab, 3 Refill(s), Pharmacy: [facility] #[id number], 149.86, cm, 05/25/20 13:41:00 CDT, Height, 95.455, kg, 05/25/20 13:41:00 CDT, Weight primidone 2020-0 Yes 50 mg = 1 Mem [place] 50 mg oral 8-25 tab, PO, l tablet 19:03: BID, # 180 Jessie nn 00 tab, 3 Refill(s), Pharmacy: [facility] #[id number], 149.86, cm, 05/25/20 13:41:00 CDT, Height, 95.455, kg, 05/25/20 13:41:00 CDT, Weight primidone 2020-0 Yes 50 mg = 1 Mem [place] 50 mg oral 8-25 tab, PO, l tablet 19:03: BID, # 180 Jessie nn 00 tab, 3 Refill(s), Pharmacy: [facility] #[id number], 149.86, cm, 05/25/20 13:41:00 CDT, Height, 95.455, kg, 05/25/20 13:41:00 CDT, Weight primidone 2020-0 Yes 50 mg = 1 Mem oria 50 mg oral 8-25 tab, PO, l tablet 19:03: BID, # 180 Jessie nn 00 tab, 3 Refill(s), Pharmacy: [facility] #[id number], 149.86, cm, 05/25/20 13:41:00 CDT, Height, 95.455, kg, 05/25/20 13:41:00 CDT, Weight primidone 2020-0 No 50 mg = 1 Mem oria 50 mg oral 6-25 tab, PO, l tablet 13:48: Bedtime, # Jessie nn 00 90 tab, 3 Refill(s), Pharmacy: [facility] #[id number], 149.86, cm, 03/24/20 9:12:00 CDT, Height, 90.909, kg, 03/24/20 9:12:00 CDT, Weight primidone 2020-0 No 50 mg = 1 Mem oria 50 mg oral 6-25 tab, PO, l tablet 13:48: Bedtime, # Jessie nn 00 90 tab, 3 Refill(s), Pharmacy: [facility] #[id number], 149.86, cm, 03/24/20 9:12:00 CDT, Height, 90.909, kg, 03/24/20 9:12:00 CDT, Weight primidone 2020-0 No 50 mg = 1 Mem oria 50 mg oral 6-25 tab, PO, l tablet 13:48: Bedtime, # Jessie nn 00 90 tab, 3 Refill(s), Pharmacy: [facility] #[id number], 149.86, cm, 03/24/20 9:12:00 CDT, Height, 90.909, kg, 03/24/20 9:12:00 CDT, Weight primidone 2020-0 No 50 mg = 1 Mem o[place] 50 mg oral 6-25 tab, PO, l tablet 13:48: Bedtime, # Jessie nn 00 90 tab, 3 Refill(s), Pharmacy: [facility] #[id number], 149.86, cm, 03/24/20 9:12:00 CDT, Height, 90.909, kg, 03/24/20 9:12:00 CDT, Weight primidone 2020-0 No 50 mg = 1 Mem oria 50 mg oral 6-25 tab, PO, l tablet 13:48: Bedtime, # Jessie nn 00 90 tab, 3 Refill(s), Pharmacy: [facility] #[id number], 149.86, cm, 03/24/20 9:12:00 CDT, Height, 90.909, kg, 03/24/20 9:12:00 CDT, Weight primidone 2020-0 No 50 mg = 1 Mem oria 50 mg oral 6-25 tab, PO, l tablet 13:48: Bedtime, # Jessie nn 00 90 tab, 3 Refill(s), Pharmacy: [facility] #[id number], 149.86, cm, 03/24/20 9:12:00 CDT, Height, 90.909, kg, 03/24/20 9:12:00 CDT, Weight primidone 2020-0 No 50 mg = 1 Mem oria 50 mg oral 6-25 tab, PO, l tablet 13:48: Bedtime, # Jessie nn 00 90 tab, 3 Refill(s), Pharmacy: [facility] #[id number], 149.86, cm, 03/24/20 9:12:00 CDT, Height, 90.909, kg, 03/24/20 9:12:00 CDT, Weight primidone 2020-0 No 50 mg = 1 Mem oria 50 mg oral 6-25 tab, PO, l tablet 13:48: Bedtime, # Jessie nn 00 90 tab, 3 Refill(s), Pharmacy: [facility] #[id number], 149.86, cm, 03/24/20 9:12:00 CDT, Height, 90.909, kg, 03/24/20 9:12:00 CDT, Weight primidone 2020-0 No 50 mg = 1 Mem oria 50 mg oral 6-25 tab, PO, l tablet 13:48: Bedtime, # Jessie nn 00 90 tab, 3 Refill(s), Pharmacy: [facility] #[id number], 149.86, cm, 03/24/20 9:12:00 CDT, Height, 90.909, kg, 03/24/20 9:12:00 CDT, Weight primidone 2020-0 No 50 mg = 1 Mem [place] 50 mg oral 6-25 tab, PO, l tablet 13:48: Bedtime, # Jessie nn 00 90 tab, 3 Refill(s), Pharmacy: [facility] #[id number], 149.86, cm, 03/24/20 9:12:00 CDT, Height, 90.909, kg, 03/24/20 9:12:00 CDT, Weight primidone 2020-0 No 50 mg = 1 Mem [place] 50 mg oral 6-25 tab, PO, l tablet 13:48: Bedtime, # Jessie nn 00 90 tab, 3 Refill(s), Pharmacy: [facility] #[id number], 149.86, cm, 03/24/20 9:12:00 CDT, Height, 90.909, kg, 03/24/20 9:12:00 CDT, Weight primidone 2020-0 No 50 mg = 1 Mem [place] 50 mg oral 6-25 tab, PO, l tablet 13:48: Bedtime, # Jessie nn 00 90 tab, 3 Refill(s), Pharmacy: [facility] #[id number], 149.86, cm, 03/24/20 9:12:00 CDT, Height, 90.909, kg, 03/24/20 9:12:00 CDT, Weight primidone 2020-0 No 50 mg = 1 Mem o[place] 50 mg oral 6-25 tab, PO, l tablet 13:48: Bedtime, # Jessie nn 00 90 tab, 3 Refill(s), Pharmacy: [facility] #[id number], 149.86, cm, 03/24/20 9:12:00 CDT, Height, 90.909, kg, 03/24/20 9:12:00 CDT, Weight donepezil 2020-0 Yes 10 mg = 1 Mem oria 10 mg oral 6-24 tab, PO, l tablet 14:32: Daily, # Raul 00 30 tab, 3 Refill(s), Pharmacy: [facility] #[id number], 149.86, cm, 03/24/20 9:12:00 CDT, Height, 90.909, kg, 03/24/20 9:12:00 CDT, Weight primidone 2020-0 No 50 mg = 1 Mem [place] 50 mg oral 6-24 tab, PO, l tablet 14:32: Bedtime, X Jessie nn 30 day, # 30 tab, 3 Refill(s), Pharmacy: [facility] #[id number], 149.86, cm, 03/24/20 9:12:00 CDT, Height, 90.909, kg, 03/24/20 9:12:00 CDT, Weight donepezil 2020-0 Yes 10 mg = 1 Mem oria 10 mg oral 6-24 tab, PO, l tablet 14:32: Daily, # Raul 00 30 tab, 3 Refill(s), Pharmacy: [facility] #[id number], 149.86, cm, 03/24/20 9:12:00 CDT, Height, 90.909, kg, 03/24/20 9:12:00 CDT, Weight primidone 2020-0 No 50 mg = 1 Mem oria 50 mg oral 6-24 tab, PO, l tablet 14:32: Bedtime, X Jessie nn 30 day, # 30 tab, 3 Refill(s), Pharmacy: [facility] #[id number], 149.86, cm, 03/24/20 9:12:00 CDT, Height, 90.909, kg, 03/24/20 9:12:00 CDT, Weight donepezil 2020-0 Yes 10 mg = 1 Mem oria 10 mg oral 6-24 tab, PO, l tablet 14:32: Daily, # [place] 00 30 tab, 3 Refill(s), Pharmacy: [facility] #[id number], 149.86, cm, 03/24/20 9:12:00 CDT, Height, 90.909, kg, 03/24/20 9:12:00 CDT, Weight primidone 2020-0 No 50 mg = 1 Mem o[place] 50 mg oral 6-24 tab, PO, l tablet 14:32: Bedtime, X Jessie nn 30 day, # 30 tab, 3 Refill(s), Pharmacy: [facility] #[id number], 149.86, cm, 03/24/20 9:12:00 CDT, Height, 90.909, kg, 03/24/20 9:12:00 CDT, Weight donepezil 2020-0 Yes 10 mg = 1 Mem oria 10 mg oral 6-24 tab, PO, l tablet 14:32: Daily, # [place] 00 30 tab, 3 Refill(s), Pharmacy: [facility] #[id number], 149.86, cm, 03/24/20 9:12:00 CDT, Height, 90.909, kg, 03/24/20 9:12:00 CDT, Weight primidone 2020-0 No 50 mg = 1 Mem oria 50 mg oral 6-24 tab, PO, l tablet 14:32: Bedtime, X Jessie nn 30 day, # 30 tab, 3 Refill(s), Pharmacy: [facility] #[id number], 149.86, cm, 03/24/20 9:12:00 CDT, Height, 90.909, kg, 03/24/20 9:12:00 CDT, Weight donepezil 2020-0 Yes 10 mg = 1 Mem oria 10 mg oral 6-24 tab, PO, l tablet 14:32: Daily, # Raul 00 30 tab, 3 Refill(s), Pharmacy: [facility] #[id number], 149.86, cm, 03/24/20 9:12:00 CDT, Height, 90.909, kg, 03/24/20 9:12:00 CDT, Weight primidone 2020-0 No 50 mg = 1 Mem oria 50 mg oral 6-24 tab, PO, l tablet 14:32: Bedtime, X Jessie nn 30 day, # 30 tab, 3 Refill(s), Pharmacy: [facility] #[id number], 149.86, cm, 03/24/20 9:12:00 CDT, Height, 90.909, kg, 03/24/20 9:12:00 CDT, Weight donepezil 2020-0 Yes 10 mg = 1 Mem oria 10 mg oral 6-24 tab, PO, l tablet 14:32: Daily, # [place] 00 30 tab, 3 Refill(s), Pharmacy: [facility] #[id number], 149.86, cm, 03/24/20 9:12:00 CDT, Height, 90.909, kg, 03/24/20 9:12:00 CDT, Weight primidone 2020-0 No 50 mg = 1 Mem oria 50 mg oral 6-24 tab, PO, l tablet 14:32: Bedtime, X Jessie nn 30 day, # 30 tab, 3 Refill(s), Pharmacy: [facility] #[id number], 149.86, cm, 03/24/20 9:12:00 CDT, Height, 90.909, kg, 03/24/20 9:12:00 CDT, Weight donepezil 2020-0 Yes 10 mg = 1 Mem oria 10 mg oral 6-24 tab, PO, l tablet 14:32: Daily, # Raul 00 30 tab, 3 Refill(s), Pharmacy: [facility] #[id number], 149.86, cm, 03/24/20 9:12:00 CDT, Height, 90.909, kg, 03/24/20 9:12:00 CDT, Weight primidone 2020-0 No 50 mg = 1 Mem oria 50 mg oral 6-24 tab, PO, l tablet 14:32: Bedtime, X Jessie nn 30 day, # 30 tab, 3 Refill(s), Pharmacy: [facility] #[id number], 149.86, cm, 03/24/20 9:12:00 CDT, Height, 90.909, kg, 03/24/20 9:12:00 CDT, Weight donepezil 2020-0 Yes 10 mg = 1 Mem oria 10 mg oral 6-24 tab, PO, l tablet 14:32: Daily, # [place] 00 30 tab, 3 Refill(s), Pharmacy: [id number], 149.86, cm, 03/24/20 9:12:00 CDT, Height, 90.909, kg, 03/24/20 9:12:00 CDT, Weight primidone 2020-0 No 50 mg = 1 Mem oria 50 mg oral 6-24 tab, PO, l tablet 14:32: Bedtime, X Jessie nn 30 day, # 30 tab, 3 Refill(s), Pharmacy: [facility] #[id number], 149.86, cm, 03/24/20 9:12:00 CDT, Height, 90.909, kg, 03/24/20 9:12:00 CDT, Weight donepezil 2020-0 Yes 10 mg = 1 Mem oria 10 mg oral 6-24 tab, PO, l tablet 14:32: Daily, # Raul 00 30 tab, 3 Refill(s), Pharmacy: [id number], 149.86, cm, 03/24/20 9:12:00 CDT, Height, 90.909, kg, 03/24/20 9:12:00 CDT, Weight primidone 2020-0 No 50 mg = 1 Mem oria 50 mg oral 6-24 tab, PO, l tablet 14:32: Bedtime, X Jessie nn 30 day, # 30 tab, 3 Refill(s), Pharmacy: [facility] #[id number], 149.86, cm, 03/24/20 9:12:00 CDT, Height, 90.909, kg, 03/24/20 9:12:00 CDT, Weight donepezil 2020-0 Yes 10 mg = 1 Mem oria 10 mg oral 6-24 tab, PO, l tablet 14:32: Daily, # [place] 00 30 tab, 3 Refill(s), Pharmacy: [id number], 149.86, cm, 03/24/20 9:12:00 CDT, Height, 90.909, kg, 03/24/20 9:12:00 CDT, Weight primidone 2020-0 No 50 mg = 1 Mem oria 50 mg oral 6-24 tab, PO, l tablet 14:32: Bedtime, X Jessie nn 30 day, # 30 tab, 3 Refill(s), Pharmacy: [facility] #[id number], 149.86, cm, 03/24/20 9:12:00 CDT, Height, 90.909, kg, 03/24/20 9:12:00 CDT, Weight donepezil 2020-0 Yes 10 mg = 1 Mem oria 10 mg oral 6-24 tab, PO, l tablet 14:32: Daily, # Raul 00 30 tab, 3 Refill(s), Pharmacy: [facility] #[id number], 149.86, cm, 03/24/20 9:12:00 CDT, Height, 90.909, kg, 03/24/20 9:12:00 CDT, Weight primidone 2020-0 No 50 mg = 1 Mem oria 50 mg oral 6-24 tab, PO, l tablet 14:32: Bedtime, X Jessie nn 30 day, # 30 tab, 3 Refill(s), Pharmacy: [facility], 149.86, cm, 03/24/20 9:12:00 CDT, Height, 90.909, kg, 03/24/20 9:12:00 CDT, Weight donepezil 2020-0 Yes 10 mg = 1 Mem oria 10 mg oral 6-24 tab, PO, l tablet 14:32: Daily, # Raul 00 30 tab, 3 Refill(s), Pharmacy: [facility] #6704, 149.86, cm, 03/24/20 9:12:00 CDT, Height, 90.909, kg, 03/24/20 9:12:00 CDT, Weight primidone 2020-0 No 50 mg = 1 Mem oria 50 mg oral 6-24 tab, PO, l tablet 14:32: Bedtime, X Jessie nn 30 day, # 30 tab, 3 Refill(s), Pharmacy: [facility] #[id number], 149.86, cm, 03/24/20 9:12:00 CDT, Height, 90.909, kg, 03/24/20 9:12:00 CDT, Weight donepezil Yes 10 mg = 1 Mem oria 10 mg oral 6-24 tab, PO, l tablet 14:32: Daily, # Raul 00 30 tab, 3 Refill(s), Pharmacy: [facility] #6704, 149.86, cm, 03/24/20 9:12:00 CDT, Height, 90.909, kg, 03/24/20 9:12:00 CDT, Weight primidone No 50 mg = 1 Mem oria 50 mg oral 6-24 tab, PO, l tablet 14:32: Bedtime, X Jessie nn day, # 30 tab, 3 Refill(s), Pharmacy: [facility] #6704, 149.86, cm, 03/24/20 9:12:00 CDT, Height, 90.909, kg, 03/24/20 9:12:00 CDT, Weight sucralfate Yes [id number] .[id number][in_ Apply 0.25 Univers malate, 5-21 us] Inches as ity of polymerized 00:00: directed 4 [place] 1 gram/10 00 (four) Medical mL Pste times Branch daily as needed for Pain (scale 1-3). sucralfate 2019- No [id number] .[id number][in_ Apply 0.25 Univers malate, 5- 09-28 us] Inches as ity of polymerized 00:00: 00:00 directed 4 [place] 1 gram/10 00 :00 (four) Medical mL [...] 7-26 MISC, l 21:45: Daily, # 1 [place] 00 ea, 0 Refill(s) [place] 2018-0 Yes 1 ea, Memoria 7-26 MISC, l 21:45: Daily, # 1 Raul 00 ea, 0 Refill(s) [place] 2018- Yes 1 ea, Memoria 7-26 MISC, l 21:45: Daily, # 1 [place] 00 ea, 0 Refill(s) [place] 2018-0 Yes 1 ea, Memoria 7-26 MISC, l 21:45: Daily, # 1 [place] 00 ea, 0 Refill(s) [place] 2018-0 Yes 1 ea, Memoria 7-26 MISC, l 21:45: Daily, # 1 [place] 00 ea, 0 Refill(s) [place] 2018-0 Yes 1 ea, Memoria 7-26 MISC, l 21:45: Daily, # 1 [place] 00 ea, 0 Refill(s) [place] 2019-0 Yes 1 ea, Memoria 7-26 MISC, l 21:45: Daily, # 1 Raul 00 ea, 0 Refill(s) [place] 2019-0 Yes 1 ea, Memoria 7-26 MISC, l 21:45: Daily, # 1 [place] 00 ea, 0 Refill(s) [place] 2019-0 Yes 1 ea, Memoria 7-26 MISC, l 21:45: Daily, # 1 Raul 00 ea, 0 Refill(s) [place] 2019-0 Yes 1 ea, Memoria 7-26 MISC, l 21:45: Daily, # 1 [place] 00 ea, 0 Refill(s) Adult 2019-0 Yes 81 mg = 1 Memoria Aspirin 81 6-21 tab, CHEW, l mg oral 20:18: Daily, # Ajay n tablet, 00 30 tab, 3 chewable Refill(s), [id number] Adult 2019-0 Yes 81 mg = 1 Memoria Aspirin 81 6-21 tab, CHEW, l mg oral 20:18: Daily, # Ajay n tablet, 00 30 tab, 3 chewable Refill(s), [id number] Adult 2019-0 Yes 81 mg = 1 [place] Aspirin 81 6-21 tab, CHEW, l mg oral 20:18: Daily, # Ajay n tablet, 00 30 tab, 3 chewable Refill(s), [id number] Adult 2019-0 Yes 81 mg = 1 Mem[place] Aspirin 81 6-21 tab, CHEW, l mg oral 20:18: Daily, # Ajay n tablet, 00 30 tab, 3 chewable Refill(s), [id number] Adult 2019-0 Yes 81 mg = 1 Memoria Aspirin 81 6-21 tab, CHEW, l mg oral 20:18: Daily, # Ajay n tablet, 00 30 tab, 3 chewable Refill(s), [id number] Adult [id number] Yes 81 mg = 1 Memoria Aspirin 81 6-21 tab, CHEW, l mg oral 20:18: Daily, # Ajay n tablet, 00 30 tab, 3 chewable Refill(s), [id number] Adult 2019-0 Yes 81 mg = 1 Memoria Aspirin 81 6-21 tab, CHEW, l mg oral 20:18: Daily, # Ajay n tablet, 00 30 tab, 3 chewable Refill(s), [id number] Adult 2019-0 Yes 81 mg = 1 Memoria Aspirin 81 6-21 tab, CHEW, l mg oral 20:18: Daily, # Ajay n tablet, 00 30 tab, 3 chewable Refill(s), Pharmacy: [facility] #[id number] Adult 2019-0 Yes 81 mg = 1 Memoria Aspirin 81 6-21 tab, CHEW, l mg oral 20:18: Daily, # Ajay n tablet, 00 30 tab, 3 chewable Refill(s), [id number] 2019-0 Yes 81 mg = 1 Memoria Aspirin 81 6-21 tab, CHEW, l mg oral 20:18: Daily, # Ajay n tablet, 00 30 tab, 3 chewable Refill(s), Pharmacy: [facility] #[id number] Adult 2019-0 Yes 81 mg = 1 Memoria Aspirin 81 6-21 tab, CHEW, l mg oral 20:18: Daily, # Ajay n tablet, 00 30 tab, 3 chewable Refill(s), Pharmacy: [facility] #[id number] Adult 2019-0 Yes 81 mg = 1 Memoria Aspirin 81 6-21 tab, CHEW, l mg oral 20:18: Daily, # Ajay n tablet, 00 30 tab, 3 chewable Refill(s), Pharmacy: [facility] #[id number] Adult 2019-0 Yes 81 mg = 1 Memoria Aspirin 81 6-21 tab, CHEW, l mg oral 20:18: Daily, # Ajay n tablet, 00 30 tab, 3 chewable Refill(s), Pharmacy: [facility] #[id number] levothyroxi 2018-0 Yes 125 Memori [...] tab, PO, l tablet 20:06: Daily, # [place] 00 90 tab, 0 Refill(s) Atropine 2019-0 [...] tab, PO, l tablet 20:06: Daily, # [place] 00 30 tab, 0 Refill(s) donepezil 2019-0 Yes 10 mg = 1 Mem oria 10 mg oral 5-24 tab, PO, l tablet 20:06: Daily, # [place] 00 30 tab, 0 Refill(s) metoprolol 2019- Yes 50 mg [...] tab, PO, l tablet 20:06: Daily, # [place] 00 90 tab, 0 Refill(s) Atropine 2019-0 [...] 5-24 puffs, PO, l 20:06: Q4H, PRN [place] 00 Wheezing / cough / shortness of breath, # 1 ea, 0 Refill(s) donepezil 2019- Yes 10 mg = 1 Mem oria 10 mg oral 5-24 tab, PO, l tablet 20:06: Daily, # Raul 00 30 tab, 0 Refill(s) ProAir HFA 2019-0 Yes 1 - 2 Memori a 5-24 puffs, PO, l 20:06: Q4H, PRN [place] 00 Wheezing / cough / shortness of [...] tab, PO, l tablet 20:06: Daily, # [place] 00 90 tab, 0 Refill(s) Atropine 2019-0 Yes 2 tab, PO, Mem oria Sulfate 5-24 PRN, PRN l 0.025 MG / 20:06: for loose [place] rmbernie Diphenoxyla 00 stool, 0 te Refill(s) Hydrochlori de 2.5 MG Oral Tablet [Lomotil] lovastatin 20190 Yes 20 mg = 1 Me moria [...] tab, PO, l tablet 20:06: Daily, # [place] 00 30 tab, 0 Refill(s) donepezil 2019-0 Yes 10 mg = 1 Mem oria 10 mg oral 5-24 tab, PO, l tablet 20:06: Daily, # Ra[place] 00 30 tab, 0 Refill(s) ProAir HFA 2019-0 Yes 1 - 2 Memori a 5-24 puffs, PO, l 20:06: Q4H, PRN [place] 00 Wheezing / cough / shortness of [...] tab, PO, l tablet 20:06: Daily, # [place] 00 90 tab, 0 Refill(s) Atropine Yes [...] tab, PO, l tablet 20:06: BID, 0 [place] 00 Refill(s) lisinopril 2019 Yes 40 mg = 1 Me moria 40 mg oral 5-24 tab, PO, l tablet 20:06: Daily, # [place] 00 30 tab, 0 Refill(s) donepezil 2019 Yes 10 mg = 1 Mem oria 10 mg oral 5-24 tab, PO, l tablet 20:06: Daily, # [place] 00 30 tab, 0 Refill(s) ProAir HFA 0 Yes 1 - 2 Memori a 5-24 puffs, PO, l 20:06: Q4H, PRN [place] 00 Wheezing / cough / shortness of [...] tab, PO, l tablet 20:06: BID, 0 [place] 00 Refill(s) lisinopril 2019 Yes 40 mg [...] tab, PO, l tablet 20:06: Daily, # [place] 00 90 tab, 0 Refill(s) Atropine 2018- [...] tab, PO, l tablet 20:06: BID, 0 [place] 00 Refill(s) lisinopril 2019-0 Yes 40 mg = 1 Me moria 40 mg oral 5-24 tab, PO, l tablet 20:06: Daily, # [place] 00 30 tab, 0 Refill(s) donepezil [id number] Yes 10 mg = 1 Mem oria 10 mg oral 5-24 tab, PO, l tablet 20:06: Daily, # [place] 00 30 tab, 0 Refill(s) ProAir HFA 2019-0 Yes 1 - 2 Memori a 5-24 puffs, PO, l 20:06: Q4H, PRN [place] 00 Wheezing / cough / shortness of [...] l Oral Tablet 20:06: Daily, # Catalino aleksandra [Lexapro] 00 30 tab, 0 Refill(s) metoprolol 2019 Yes 50 mg = 1 Me moria 50 mg oral 5-24 tab, PO, l tablet, 20:06: Daily, # Ajay n extended 00 30 tab, 0 release Refill(s) omeprazole Yes 40 mg = 1 Me moria 40 mg oral 5-24 cap, PO, l delayed 20:06: Daily, # Ajay n release 00 30 cap, 0 capsule Refill(s) Escitalopra Yes 20 mg = 1 M emoria m 20 MG 5-24 tab, PO, l Oral Tablet 20:06: Daily, # Catalino aleksandra [Lexapro] 00 30 tab, 0 Refill(s) omeprazole [...] tab, PO, l tablet 20:06: BID, 0 [place] 00 Refill(s) lisinopril 2019 Yes 40 mg = 1 Me moria 40 mg oral 5-24 tab, PO, l tablet 20:06: Daily, # Raul 00 30 tab, 0 Refill(s) donepezil 2019- Yes 10 mg = 1 Mem oria 10 mg oral 5-24 tab, PO, l tablet 20:06: Daily, # [place] 00 30 tab, 0 Refill(s) ProAir HFA 2019-0 Yes 1 - 2 Memori a 5-24 puffs, PO, l 20:06: Q4H, PRN [place] 00 Wheezing / cough / shortness of breath, # 1 ea, 0 Refill(s) amLODIPine 2019- Yes 5 mg = 1 Mem oria 5 mg oral 5-24 tab, PO, l tablet 20:06: Daily, # [place] 00 90 tab, 0 Refill(s) Atropine 0 Yes 2 tab, PO, Mem oria Sulfate [...] 5-24 puffs, PO, l 20:06: Q4H, PRN [place] 00 Wheezing / cough / shortness of [...] tab, PO, l tablet 20:06: BID, 0 [place] 00 Refill(s) lisinopril 2019 Yes 40 mg = 1 Me moria 40 mg oral 5-24 tab, PO, l tablet 20:06: Daily, # [place] 00 30 tab, 0 Refill(s) donepezil [id number] Yes 10 mg = 1 Mem oria 10 mg oral 5-24 tab, PO, l tablet 20:06: Daily, # Raul 00 30 tab, 0 Refill(s) ProAir HFA 2019-0 Yes 1 - 2 Memori a 5-24 puffs, PO, l 20:06: Q4H, PRN [place] 00 Wheezing / cough / shortness of [...] tab, PO, l tablet 20:06: BID, 0 [place] 00 Refill(s) lisinopril 2019 Yes 40 mg [...] 00 30 tab, 0 release Refill(s) Escitalopra 0 Yes 20 mg = 1 M emoria [...] tab, PO, l tablet 20:06: Daily, # [place] 00 30 tab, 0 Refill(s) donepezil Yes 10 mg = 1 Mem oria 10 mg oral 5-24 tab, PO, l tablet 20:06: Daily, # Raul 00 30 tab, 0 Refill(s) ProAir HFA 2019- Yes 1 - 2 Memori a 5-24 [...] tab, PO, l tablet 20:06: BID, 0 [place] 00 Refill(s) lisinopril 2019-0 Yes 40 mg = 1 Me moria 40 mg oral 5-24 tab, PO, l tablet 20:06: Daily, # Raul 00 30 tab, 0 Refill(s) donepezil 2019-0 Yes 10 mg = 1 Mem oria 10 mg oral 5-24 tab, PO, l tablet 20:06: Daily, # [place] 00 30 tab, 0 Refill(s) ProAir HFA 2019-0 Yes 1 - 2 Memori a 5-24 puffs, PO, l 20:06: Q4H, PRN [place] 00 Wheezing / cough / shortness of [...] tab, PO, l tablet 20:06: Daily, # [place] 00 30 tab, 0 Refill(s) ProAir HFA [...] ity of 300-30 mg 00:00: [place] tablet [facility] Branch acetaminoph 2018-1 2020- No Unive rs en-codeine [id number] ity of 300-30 mg 00:00: 00:00 [place] [...] mouth ity of mg tablet 17:04: daily. [place] [address] [facility] Branch lovastatin 2017-0 Yes 20mg Take [...] mouth ity of mg tablet 17:04: daily. [place] [address] [facility] lovastatin 2017-0 Yes 20mg Take [...] mouth ity of mg tablet 17:04: daily. [place] [address] [facility] Branch lovastatin 2017-0 Yes 20mg Take [...] mcg 36 daily. Medical tablet Branch donepezil 0 Yes 10mg Take 10 mg Un martha (ARICEPT) 3-07 by mouth ity of 10 mg 11:04: daily. [place] tablet 36 Medical Branch amLODIPine 2017-0 Yes 5mg Take 5 mg Un martha (NORVASC) 5 3-07 by mouth ity of mg tablet 11:04: daily. [place] [address] [facility] Branch lovastatin 2017-0 Yes 20mg Take [...] mouth ity of mg tablet 11:04: daily. [place] [address] [facility] Branch lovastatin Yes 20mg Take 20 mg U nivers (MEVACOR) 3-07 by mouth ity of 20 mg 11:04: daily. [place] tablet 36 Medical Branch primidone primidone No primidone Devoted 50 mg [...] DAY A DAY MOUTH TWICE A DAY spironolact spironolact No spironolac Devoted one 25 [...] No Potassium Chloride Chloride Chloride Neeta ER Neeat ER Neeta ER Diclofenac Diclofenac No Diclofenac [...] Spironolact Spironolact No Spironolac one one tone buPROPion buPROPion No buPROPion HCl ER (XL) [...] Ellipta Ellipta Ellipta Gabapentin Gabapentin No Gabapentin Pantoprazol Pantoprazol No Pantoprazo e Sodium e Sodium le Sodium Escitalopra Escitalopra No 1{table QD Escitalopr m Oxalate m Oxalate t} am Oxalate 20 MG 20 MG 20 MG Acetaminoph Acetaminoph No Acetaminop en-Codeine en-Codeine hen-Codein #3 #3 e #3 Clindamycin Clindamycin No Clindamyci HCl HCl n HCl Cephalexin Cephalexin No Cephalexin Advair Advair No Advair Devoted Diskus 250 Diskus 250 Diskus 250 Medical mcg-50 mcg-50 mcg-50 Group mcg/dose mcg/dose mcg/dose powder for powder for powder for inhalation inhalation inhalation INHALE 1 INHALE 1 INHALE 1 PUFF BY PUFF BY PUFF BY MOUTH TWICE MOUTH TWICE MOUTH DAILY DAILY TWICE DAILY Carvedilol Carvedilol No 1{table BID Carvedilol 25 MG 25 MG t_with_ 25 MG food} Flublok Flublok No Flublok Quadrivalen Quadrivalen Quadrivale t t nt Mupirocin Mupirocin No Mupirocin Calcium Calcium Calcium Gabapentin Gabapentin No Gabapentin Famotidine Famotidine No Famotidine Albuterol Albuterol No [...] en-Codeine en-Codeine hen-Codein #3 #3 e #3 albuterol albuterol No albuterol Devoted sulfate HFA sulfate HFA sulfate Medical 90 90 HFA 90 Group mcg/actuati mcg/actuati mcg/actuat on aerosol on aerosol ion inhaler inhaler aerosol INHALE 2 INHALE 2 inhaler PUFFS BY PUFFS BY INHALE 2 MOUTH EVERY MOUTH EVERY PUFFS BY 6 HOURS 6 HOURS MOUTH EVERY 6 HOURS rOPINIRole rOPINIRole No 1{table BID rOPINIRole HCl 2 MG HCl 2 MG t} HCl 2 MG Diclofenac Diclofenac No Diclofenac Sodium 1 % Sodium 1 % Sodium 1 % Furosemide Furosemide No Furosemide Sulfamethox Sulfamethox No Sulfametho azole-Trime azole-Trime xazole-Tri thoprim thoprim methoprim Levothyroxi Levothyroxi No Levothyrox ne Sodium ne Sodium ine Sodium Chlorhexidi Chlorhexidi No Chlorhexid ne ne ine Gluconate Gluconate Gluconate Ciprofloxac Ciprofloxac No Ciprofloxa in HCl in HCl nataliya HCl Ciprofloxac Ciprofloxac No Ciprofloxa in HCl in HCl nataliya HCl Clindamycin Clindamycin No Clindamyci HCl HCl n HCl Nitrofurant Nitrofurant No Nitrofuran oin Monohyd oin Monohyd toin Macro Macro Monohyd Macro amlodipine amlodipine No amlodipine Devoted 10 mg 10 mg 10 mg Medical tablet TAKE tablet TAKE tablet Group 1 TABLET BY 1 TABLET BY TAKE 1 MOUTH EVERY MOUTH EVERY TABLET BY DAY DAY MOUTH EVERY DAY Gabapentin Gabapentin No Gabapentin Spironolact Spironolact No [...] MG 20 MG Cephalexin Cephalexin No Cephalexin amlodipine amlodipine No amlodipine Devoted 5 mg tablet 5 mg tablet 5 mg M edical TAKE 1 TAKE 1 tablet Group TABLET BY TABLET BY TAKE 1 MOUTH EVERY MOUTH EVERY TABLET BY DAY DAY MOUTH EVERY DAY traMADol traMADol No traMADol HCl HCl [...] Flublok Quadrivalen Quadrivalen Quadrivale t t nt Breo Breo No Breo Devoted Ellipta 200 Ellipta 200 Ellipta Medical mcg-25 mcg-25 200 mcg-25 Group mcg/dose mcg/dose mcg/dose powder for powder for powder for inhalation inhalation inhalation TAKE 1 PUFF TAKE 1 PUFF TAKE 1 BY MOUTH BY MOUTH PUFF BY EVERY DAY EVERY DAY MOUTH EVERY DAY amLODIPine amLODIPine No 1{table QD [...] Lovastatin 20 MG 20 MG 20 MG bupropion bupropion No bupropion Devoted HCl [...] Mupirocin Mupirocin No Mupirocin Calcium Calcium Calcium carvedilol carvedilol No carvedilol Devoted 6.25 mg 6.25 mg 6.25 mg Medica l tablet TAKE tablet TAKE tablet Group 1 TABLET BY 1 TABLET BY TAKE 1 MOUTH TWICE MOUTH TWICE TABLET BY A DAY A DAY MOUTH TWICE A DAY donepezil donepezil No donepezil Devoted 10 mg 10 mg 10 mg Medical tablet TAKE tablet TAKE tablet Group 1 TABLET BY 1 TABLET BY TAKE 1 MOUTH EVERY MOUTH EVERY TABLET BY DAY DAY MOUTH EVERY DAY escitalopra escitalopra No escitalopr Devoted m 20 [...] MOUTH EVERY MOUTH DAY DAY EVERY DAY Vital Signs Vital Name Observation Time Observation Value Comments Source Systolic blood 2022-08-05 20:00:00 122 mm[Hg] Univer sity of pressure [facility] Diastolic blood 2022-08-05 20:00:00 77 mm[Hg] Unive rsity of pressure [facility] Heart rate 2022-08-05 20:00:00 50 /min [facility] Respiratory rate 2022-08-05 20:00:00 18 /min [facility] Oxygen saturation in 2022-08-05 20:00:00 94 /min [facility] Arterial blood by [facility] Pulse oximetry Branch Body temperature 2022-08-05 17:24:00 36 Tracee [facility] height 2022-08-05 17:24:00 [facility] Body weight 2022-08-05 17:24:00 83.915 kg [facility] BMI 2022-08-05 17:24:00 37.37 kg/m2 [facility] height 2022-07-27 13:15:00 59 [in_i] Common [facility] weight 2022-07-27 13:15:00 188.2 [lb_av] [facility] temperature 2022-07-27 13:15:00 97.6 [degF] Common [facility] bmi 2022-07-27 13:15:00 38.01 kg/m2 [facility] blood pressure 2022-07-27 13:15:00 125 mm[Hg] [facility] blood pressure 2022-07-27 13:15:00 82 mm[Hg] [facility] diastolic [facility] height 2022-06-15 13:30:00 59 [in_i] Common [facility] weight 2022-06-15 13:30:00 193 [lb_av] Common [facility] temperature 2022-06-15 13:30:00 98.1 [degF] [facility] bmi 2022-06-15 13:30:00 38.98 kg/m2 Common [facility] blood pressure 2022-06-15 13:30:00 128 mm[Hg] [facility] blood pressure 2022-06-15 13:30:00 76 mm[Hg] [facility] diastolic [facility] height 2021-10-17 14:30:00 59 [in_i] Common S [facility] weight 2021-10-17 14:30:00 220 [lb_av] [facility] temperature 2021-10-17 14:30:00 97.9 [degF] Common S pirit [facility] bmi 2021-10-17 14:30:00 44.43 kg/m2 Common S pirit [facility] blood pressure 2021-10-17 14:30:00 126 mm[Hg] [facility] systolic [facility] blood pressure 2021-10-17 14:30:00 74 mm[Hg] [facility] - diastolic [facility] Systolic blood 2020-06-28 19:30:00 180 mm[Hg] Univer sity of [facility] Diastolic blood 2020-06-28 19:30:00 82 mm[Hg] Unive rsity of [facility] Heart rate 2020-06-28 19:30:00 61 /min Universi ty [facility] Respiratory rate 2020-06-28 19:13:00 17 /min [facility] saturation in 2020-06-28 19:13:00 96 /min [facility] Arterial blood by [facility] Pulse oximetry Branch Body temperature 2020-06-28 16:54:00 36.33 Tracee [facility] weight 2020-06-28 16:54:00 95.255 kg Universi ty [facility] BMI 2020-06-28 16:54:00 42.41 kg/m2 Universi ty [facility] Systolic blood 2020-06-28 19:30:00 180 mm[Hg] Univer sity of [facility] Diastolic blood 2020-06-28 19:30:00 82 mm[Hg] Unive rsity of [facility] Heart rate 2020-06-28 19:30:00 61 /min Universi ty [facility] Respiratory rate 2020-06-28 19:13:00 17 /min Univ ers[facility] [place] [facility] Oxygen saturation in 2020-06-28 19:13:00 96 /min University of Arterial blood by [facility] Pulse oximetry Branch Body temperature 2020-06-28 [...] Arterial blood by [facility] Pulse oximetry Branch Systolic blood 2020-02-19 19:23:00 [...] Arterial blood by [facility] Pulse oximetry Branch Systolic blood 2019-12-10 04:00:00 202 mm[Hg] Univer sity of pressure [place] [facility] Diastolic blood 2019-12-10 04:00:00 92 mm[Hg] Unive rsity of pressure [facility] [place] [facility] Heart rate 2019-12-10 04:00:00 75 /min [facility] [place] [facility] Respiratory rate 2019-12-10 04:00:00 18 /min Univ ersity [facility] [place] [facility] Oxygen saturation in 2019-12-10 04:00:00 98 /min University of Arterial blood by [facility] Pulse oximetry Branch Body temperature 2019-12-10 [...] 2019-12-10 04:00:00 75 /min [facility] [place] [facility] Respiratory rate 2019-12-10 04:00:00 18 /min Univ ersity of [place] [facility] Oxygen saturation in 2019-12-10 04:00:00 98 /min University of Arterial blood by [facility] Pulse oximetry Branch Body temperature 2019-12-10 02:51:13 36.39 Tracee Univ ersity [facility] [place] [facility] Body height 2019-12-10 02:28:00 162.6 cm [facility] [place] [facility] Body weight 2019-12-10 02:28:00 104.327 kg [facility] [place] [facility] BMI 2019-12-10 02:28:00 39.48 kg/m2 [facility] [place] [facility] Heart Rate 2022-11-29 19:18:58 [facility] Systolic (mm Hg) 2022-11-29 19:18:48 Jose Francisco rial [place] Diastolic (mm Hg) 2022-11-29 19:18:48 Mem orial Raul Heart Rate 2022-11-29 19:18:48 [facility] [place] Temperature Oral (F) 2022-11-29 19:18:21 98.2 F [facility] [place] Heart Rate 2022-11-29 13:36:55 [facility] [place] Systolic (mm Hg) 2022-11-29 13:36:27 Jose Francisco rial [place] Diastolic (mm Hg) 2022-11-29 13:36:27 Mem orial [place] Systolic (mm Hg) 2022-11-29 13:14:00 Jose Francisco rial [place] Diastolic (mm Hg) 2022-11-29 13:14:00 Mem orial [place] Respitory Rate 2022-11-29 10:05:34 Memori al [place] Temperature Oral (F) 2022-11-29 10:04:49 98.4 F [facility] [place] Respitory Rate 2022-11-29 05:37:05 Memori al [place] Temperature Oral (F) 2022-11-29 05:36:29 97.7 F [facility] [place] Temperature Oral (F) 2022-11-29 02:00:00 98 F [facility] [place] Respitory Rate 2022-11-28 20:51:03 Memori al [place] Height 2022-11-28 19:03:00 4 [ft_i] [facility] [place] Weight 2022-11-28 19:03:00 [facility] [place] Height 2022-11-27 14:13:00 149.86 cm [facility] [place] Weight 2022-11-27 14:13:00 [facility] [place] BMI Calculated 2022-11-27 14:13:00 Memori al [place] Height 2022-11-27 05:50:00 149.86 cm [facility] BMI Calculated 2022-11-27 05:50:00 Memori al [place] Weight 2022-11-27 05:50:00 [facility] [place] Systolic (mm Hg) 2022-11-23 01:23:00 Jose Francisco rial [place] Diastolic (mm Hg) 2022-11-23 01:23:00 Mem orial [place] Respitory Rate 2022-11-23 01:23:00 Memori al [place] Respitory Rate 2022-11-22 22:30:00 Memori al [place] Systolic (mm Hg) 2022-11-22 22:30:00 Jose Francisco rial [place] Diastolic (mm Hg) 2022-11-22 22:30:00 Mem orial [place] Respitory Rate 2022-11-22 21:30:00 Memori al [place] Systolic (mm Hg) 2022-11-22 21:30:00 Jose Francisco rial [place] Diastolic (mm Hg) 2022-11-22 21:30:00 Mem orial [place] Temperature Oral (F) 2022-11-22 02:00:00 98.2 F [facility] [place] Temperature Oral (F) 2022-11-21 22:54:00 97.7 F [facility] [place] Temperature Oral (F) 2022-11-21 16:07:00 98.2 F [facility] [place] Height 2022-11-21 10:11:00 149.86 cm [facility] [place] BMI Calculated 2022-11-21 10:11:00 Memori al [place] Weight 2022-11-21 10:11:00 [facility] Heart Rate 2022-11-21 10:11:00 [facility] [place] Systolic (mm Hg) 2021-11-02 20:14:00 Jose Francisco rial [place] Diastolic (mm Hg) 2021-11-02 20:14:00 Mem orial [place] Heart Rate 2021-11-02 20:14:00 [facility] [place] Respitory Rate 2021-11-02 20:14:00 Memori al [place] Height 2021-11-02 20:14:00 149.86 cm [facility] [place] Weight 2021-11-02 20:14:00 [facility] BMI Calculated 2021-11-02 20:14:00 Memori al [place] Systolic (mm Hg) 2020-12-24 18:59:00 Jose Francisco rial [place] Diastolic (mm Hg) 2020-12-24 18:59:00 Mem orial Ra[facility] Heart Rate 2020-12-24 18:59:00 [facility] [place] Respitory Rate 2020-12-24 18:59:00 Memori al [place] Height 2020-12-24 18:59:00 149.86 cm [facility] [place] Weight 2020-12-24 18:59:00 [facility] BMI Calculated 2020-12-24 18:59:00 Memori al [place] Systolic (mm Hg) 2020-09-06 20:47:00 Jose Francisco rial [place] Diastolic (mm Hg) 2020-09-06 20:47:00 Mem orial [place] Temperature Oral (F) 2020-09-06 18:26:00 99.7 F [facility] [place] Heart Rate 2020-09-06 18:26:00 [facility] [place] Respitory Rate 2020-09-06 18:26:00 Memori al [place] Systolic (mm Hg) 2020-09-06 18:26:00 Jose Francisco rial [place] Diastolic (mm Hg) 2020-09-06 18:26:00 Mem orial [place] Temperature Oral (F) 2020-09-06 14:09:00 98.1 F [facility] [place] Heart Rate 2020-09-06 14:09:00 [facility] [place] Respitory Rate 2020-09-06 14:09:00 Memori al [place] Systolic (mm Hg) 2020-09-06 14:09:00 Jose Francisco rial [place] Diastolic (mm Hg) 2020-09-06 14:09:00 Mem orial [place] Temperature Oral (F) 2020-09-06 10:00:00 98.1 F [facility] [place] Heart Rate 2020-09-06 10:00:00 [facility] [place] Respitory Rate 2020-09-06 10:00:00 Memori al [place] Temperature Oral (F) 2020-09-06 06:30:00 97.5 F [facility] Heart Rate 2020-09-06 06:30:00 [facility] [place] Respitory Rate 2020-09-06 06:30:00 Memori al [place] Systolic (mm Hg) 2020-09-06 06:30:00 Jose Francisco rial [place] Diastolic (mm Hg) 2020-09-06 06:30:00 Mem orial [place] Temperature Oral (F) 2020-09-06 02:45:00 97.8 F [facility] [place] Heart Rate 2020-09-06 02:45:00 [facility] [place] Respitory Rate 2020-09-06 02:45:00 Memori al [place] Systolic (mm Hg) 2020-09-06 02:45:00 Jose Francisco rial [place] Diastolic (mm Hg) 2020-09-06 02:45:00 Mem orial [place] Temperature Oral (F) 2020-09-05 22:00:00 97 F [facility] Heart Rate 2020-09-05 22:00:00 [facility] [place] Respitory Rate 2020-09-05 22:00:00 Memori al [place] Systolic (mm Hg) 2020-09-05 22:00:00 Jose Francisco rial [place] Diastolic (mm Hg) 2020-09-05 22:00:00 Mem orial [place] Height 2020-09-05 02:46:00 124.46 cm [facility] [place] BMI Calculated 2020-09-05 02:46:00 Memori al [place] Weight 2020-09-05 02:46:00 [facility] [place] Systolic (mm Hg) 2020-05-25 18:41:00 Jose Francisco rial [place] Diastolic (mm Hg) 2020-05-25 18:41:00 Mem orial [place] Heart Rate 2020-05-25 18:41:00 [facility] [place] Respitory Rate 2020-05-25 18:41:00 Memori al [place] Temperature Oral (F) 2020-05-25 18:41:00 98.6 F [facility] [place] Height 2020-05-25 18:41:00 149.86 cm [facility] [place] Weight 2020-05-25 18:41:00 [facility] BMI Calculated 2020-05-25 18:41:00 Memori al [place] Systolic (mm Hg) 2020-03-24 14:12:00 Jose Francisco rial [place] Diastolic (mm Hg) 2020-03-24 14:12:00 Mem orial [place] Heart Rate 2020-03-24 14:12:00 [facility] [place] Height 2020-03-24 14:12:00 149.86 cm [facility] [place] Weight 2020-03-24 14:12:00 [facility] BMI Calculated 2020-03-24 14:12:00 Memori al [place] Systolic (mm Hg) 2019-07-24 19:29:00 Jose Francisco rial [place] Diastolic (mm Hg) 2019-07-24 19:29:00 Mem orial [facility] Heart Rate 2019-07-24 19:29:00 [facility] [place] Respitory Rate 2019-07-24 19:29:00 Memori al [place] Height 2019-07-24 19:29:00 149.86 cm [facility] Weight 2019-07-24 19:29:00 [facility] BMI Calculated 2019-07-24 19:29:00 Memori al [place] Systolic (mm Hg) 2019-05-21 19:25:00 Jose Francisco rial [place] Diastolic (mm Hg) 2019-05-21 19:25:00 Mem orial [place] Heart Rate 2019-05-21 19:25:00 [facility] Respitory Rate 2019-05-21 19:25:00 Memori al [place] Height 2019-05-21 19:25:00 149.86 cm [facility] Weight 2019-05-21 19:25:00 [facility] [place] BMI Calculated 2019-05-21 19:25:00 Memori al [place] Height 2019-03-21 19:45:00 147.32 cm [facility] Weight 2019-03-21 19:45:00 [facility] [place] BMI Calculated 2019-03-21 19:45:00 Memori al [place] Respitory Rate 2019-03-21 19:45:00 Memori al [facility] Heart Rate 2019-03-21 19:45:00 [facility] Systolic (mm Hg) 2019-03-21 19:45:00 Jose Francisco rial [place] Diastolic (mm Hg) 2019-03-21 19:45:00 Mem orial [facility] Height 2019-02-21 20:01:00 149.86 cm [facility] Weight 2019-02-21 20:01:00 [facility] [place] BMI Calculated 2019-02-21 20:01:00 Memori al [facility] Respitory Rate 2019-02-21 20:01:00 Memori al [place] Heart Rate 2019-02-21 20:01:00 [facility] [place] Systolic (mm Hg) 2019-02-21 20:01:00 Jose Francisco rial [place] Diastolic (mm Hg) 2019-02-21 20:01:00 Mem orial [facility] Procedures Procedure Date / Time Performing Clinician Source Performed AUTHORIZATION FOR 2022-11-22 06:01:00 Doctor Unassigned, No Univ [facility] RELEASE OF PHI Name Medical Branch XR CHEST 1 VW 2022-08-05 17:51:10 Carly Sinclair [facility] TROPONIN I 2022-08-05 17:31:00 Carly Sinclair [facility] COMP. METABOLIC PANEL 2022-08-05 17:31:00 Carly Sinclair [facility] ([id number]) [facility] CBC WITH DIFF 2022-08-05 17:31:00 Carly Sinclair [facility] RAPID INFLUENZA A/B 2022-08-05 17:31:00 Carly Sinclair [facility] N-TERMINAL PRO-BNP 2022-08-05 17:31:00 Carly Sinclair [facility] COVID-19 (ID NOW RAPID 2022-08-05 17:31:00 Carly Sinclair Un [facility] TESTING) [facility] CONSENT/REFUSAL FOR 2022-08-05 17:11:04 [facility] XR FOREARM 2 VW RIGHT 2020-06-28 17:49:01 Sariah [facility] XR SHOULDER 2+ VW RIGHT 2020-06-28 17:49:01 Sariah Miller [facility] CONSENT/REFUSAL FOR 2020-02-19 18:58:01 [facility]igned[facility] Name [facility] XR TIBIA FIBULA 2 VW 2019-12-10 03:20:47 Timi Aguirre [facility] Encounters Start End Encounter Admission Attending Care Care Encounter Source Date/Time Date/Time Type Type Clinicians Facility Department ID 2023-03-13 Outpatient [facility] [id number] [place] 09:56:10 [id number] [facility] 2022-11-28 Outpatient [facility] [id number] [place] 08:22:57 [id number] [facility] 2022-11-23 Outpatient [facility] [id number] [place] 15:23:09 [id number] [facility] 2022-11-13 Outpatient [facility] ST[facility] [id number] Common 13:04:[id number] [facility] 2022-11-09 Outpatient STLMLC STLMLC [id number] Common 12:35:[id number] [facility] 2022-07-26 Outpatient STLMLC STLMLC [id number] Common 16:10:[id number] [facility] 2022-06-16 Outpatient STLMLC STLMLC [id number] Common 09:53:[id number] [facility] 2021-10-26 Outpatient STLMLC STLMLC [id number] Common 13:00:[id number] [facility] 2021-10-26 Outpatient STLMLC STLMLC [id number] Common 12:25:[id number] [facility] 2021-10-26 Outpatient STLMLC STLMLC [id number] Common 12:16:[id number] [facility] 2021-10-05 Inpatient KAYCEE AndersonWU ADMI [id number] [facility] 11:00:00 Anurag 64 [facility] 2021-07-29 Emergency [facility] [id number] Univers 19:46:17 [facility] 2021-07-28 Emergency [facility] [id number] Univers 21:53:33 [facility] 2023-03-14 2023-03-14 Care Glenys [id number]. CLAC [id number] [facility] 21:00:00 21:15:00 Coordinati Harlan [id number] Medical on Non [id number] Billable [id number] 2023-02-22 2023-02-22 Palliative Glenys [id number]. [id number]. C [id number] [facility] 17:30:00 18:30:00 Care Foster [id number] Medical Follow Up [id number] 2023-02-14 2023-02-14 Outpatient KAYCEE AndersonWU SUGL [id number] [facility] 08:00:00 09:00:00 Anurag Francesca [facility] 2023-02-08 2023-02-08 Outpatient Deavers_C [facility] [id number] [facility] 00:00:00 00:00:00 [id number] Medica l Group 2023-02-08 2023-02-08 Outpatient Deavers_C [facility] [id number] -2023 [facility] 00:00:00 00:00:00 [id number] Medica l Group 2023-01-31 2023-01-31 ESTRELLA Cuellar [id number]. [id number]. CLA [id number] [facility] 19:00:00 20:00:00 Deavers Nica.373019. [id number]. WF9 [facility] [id number] 2023-01-22 2023-01-22 Outpatient Deavers_C DMG [facility] [id number] Devoted 00:00:00 00:00:00 0424 Medica l Group 2023-01-22 2023-01-22 Outpatient Deavers_C DMG [facility] [id number] Devoted 00:00:00 00:00:00 0506 Medica l Group 2022-11-27 2022-11-29 Inpatient [facility] [id number] Memoria 05:48:00 21:37:[address] 2022-11-27 2022-11-29 Inpatient [facility] [id number] Memoria 05:48:00 21:37:[address] 2022-11-28 2022-11-29 Inpatient E MAYA [facility] [id number] [facility] 15:38:00 15:37:00 EMMANUEL 2022-11-26 2022-11-29 Outpatient Krisbowen [facility] [id number] 23:48:00 15:37:00 Emmanuel 57 2022-11-26 2022-11-29 Outpatient Krisbowen [facility] [id number] 23:48:00 15:37:00 Emmanuel 57 2022-11-21 2022-11-22 [facility] [id number] Memoria 10:09:00 20:23:[address] 2022-11-21 2022-11-22 [facility] [id number] Memoria 10:09:00 20:23:[address] 2022-11-21 2022-11-22 Outpatient E CESILIA [facility] [id number] [facility] 08:46:00 14:23:00 PEREZ 2022-11-21 2022-11-22 Outpatient Cesilia [facility] [id number] 04:09:00 14:23:00 Perez Arcos 2022-11-21 2022-11-22 Outpatient Cesilia [facility] [id number] 04:09:00 14:23:00 Perez Lemus 2022-11-22 2022-11-22 Orders Doctor STEFANO 1.2.840.114 [id number] Univers 00:00:00 00:00:00 Only Unassigned, TRU 350.1.13.10 ity of [facility] 4.2.7.2.686 Carlos as [id number] [address] 2022-11-01 2022-11-01 (TEL) [facility] [id number] Co mmon 00:00:00 00:00:00 [facility] 2022-09-29 2022-09-29 Inpatient NIC Sanderson, KAYCEEWU [facility] [id number] [facility] 11:00:00 11:00:00 Anurag 98 [facility] 2022-09-13 2022-09-13 CAV Allegra 2.16.840. 2.16.840.1. CLAC [id number] Devoted 20:30:00 21:00:00 Revisit: Valentín 1.403629. 059763.4.6. 2H3 Medical Gap 4.6.45630 [id number] Closure & [id number] Clinical Check-in 2022-09-05 2022-09-05 (TEL) [facility] [id number] Co mmon 00:00:00 00:00:00 [facility] 2022-08-05 2022-08-05 Emergency X YAHIR OHLO ERT [id number] Univers 12:20:00 15:34:00 CARLY dominique [facility] 2022-08-05 2022-08-05 Emergency Yahir OHLO 1.2.840.114 [id number] Univers 12:20:00 15:34:00 Carly AMIN 350.1.13.10 ity [facility] 4.2.7.[address] [facility] [id number] Medi tania [address] 2022-08-03 2022-08-03 [place] [id number] -2021 Devoted 00:00:00 00:00:00 1103 Medica l Group 2022-07-27 2022-07-27 OFFICE STLMLC STLMLC [id number] Co mmon 00:00:00 00:00:00 VISIT Spirit ESTAB PT - CHI LEVEL 4 [facility] 2022-06-15 2022-06-15 OFFICE STLMLC STLMLC [id number] Co mmon 00:00:00 00:00:00 VISIT Spirit ESTAB PT - CHI LEVEL 4 [facility] 2022-06-12 2022-06-12 ESTRELLA Dinh 2.16.840. 2.16.840.1. [facility] [id number] Devoted 20:00:00 21:00:00 Valentín 1.253040. 828935.4.6. FE5 [facility] 4.6.78375 [id number] 2022-04-28 2022-04-28 Ambulatory nullFlavo MNA [id number] Memoria 19:00:00 19:00:00 Pre-Reg r Neurology 14 l Lana Carter 2022-04-28 2022-04-28 Ambulatory nullFlavo MNA [id number] Memoria 19:00:00 19:00:00 Pre-Reg r Neurology 14 l Lana Cunhaann 2022-04-28 2022-04-28 Outpatient FRANCESCO MAYA [id number] Memoria 14:00:00 14:00:00 14 l Raul 2022-04-28 2022-04-28 Outpatient GOSIA GarciaSCHER MISCHER [id number] 14:00:00 14:00:00 Jeffrey 14 [place] 2022-04-14 2022-04-14 [place] [id number] -2021 Devoted 07:15:00 07:15:00 0715 Medica l Group 2021-12-15 2021-12-15 (TEL) STLMLC STLMLC [id number] Co mmon 00:00:00 00:00:00 Spirit - CHI [facility] 2021-12-08 2021-12-08 (TEL) STLMLC STLMLC [id number] Co mmon 00:00:00 00:00:00 [facility] 2021-11-29 2021-11-29 OL DIG E/M STLMLC STLMLC [id number] Common 00:00:00 00:00:00 SVC 5-10 Spiri t [facility] 2021-11-21 2021-11-21 (TEL) STLMLC STLMLC [id number] Co mmon 00:00:00 00:00:00 [facility] 2021-11-02 2021-11-03 Outpatient nullFlavo MNA [id number] Memoria 19:30:00 05:59:59 r Neurology 13 l Lana [place] 2021-11-02 2021-11-03 Outpatient nullFlavo MNA [id number] Memoria 19:30:00 05:59:59 r Neurology 13 l Lana [place] 2021-11-02 2021-11-02 [id number] 13:30:00 23:59:59 Jeffrey 13 Hollis 2021-11-02 2021-11-02 Ambulatory nullFlavo MNA [id number] Memoria 19:00:00 19:00:00 Pre-Reg r Neurology 12 l Lana [place] 2021-11-02 2021-11-02 Ambulatory nullFlavo MNA [id number] Memoria 19:00:00 19:00:00 Pre-Reg r Neurology 12 l Lana [place] 2021-11-02 2021-11-02 Outpatient MHIE MHIE [id number] Memoria 13:30:00 13:30:00 13 lavelle Carter 2021-11-02 2021-11-02 Outpatient MHIE MHIE [id number] Memoria 13:00:00 13:00:00 12 lavelle CunhaRaul 2021-11-02 2021-11-02 Outpatient YURIDIA GarciaMISCHANJEL [id number] 13:00:00 13:00:00 Jeffrey 12 [place] 2021-10-26 2021-10-26 (TEL) STLC STLC [id number] Co mmon 00:00:00 00:00:00 Spirit [facility] 2021-10-17 2021-10-17 OFFICE STLMLC STLMLC [id number] Co mmon 00:00:00 00:00:00 VISIT [facility] LEVEL 4 [facility] 2021-10-03 2021-10-03 ESTRELLA Dinh 2.16.840. 2.16.840.1. CLAC [id number] Devoted 20:00:00 21:30:00 Valentín 1.178679. 062955.4.6. R Medical 4.6.03386 [id number] 2021-08-29 2021-08-29 [place] [id number] -2020 Devoted 12:42:00 12:42:00 1129 Medica l Group 2021-06-28 2021-06-28 Ambulatory nullFlavo MNA [id number] Memoria 19:00:00 19:00:00 Pre-Reg r Neurology 11 l Lana Cunhaann 2021-06-28 2021-06-28 Ambulatory nullFlavo MNA [id number] Memoria 19:00:00 19:00:00 Pre-Reg r Neurology 11 l Knottalbin Cunhaann 2021-06-28 2021-06-28 Outpatient FRANCESCO MAYA [id number] Memoria 14:00:00 14:00:00 11 l Raul 2021-06-28 2021-06-28 Outpatient [id number] 14:00:00 14:00:00 Jeffrey Shafer 2021-05-16 2021-05-16 Outpatient STLMLC STLMLC [id number] Common 00:00:00 00:00:00 [facility] 2021-05-10 2021-05-10 Outpatient STLMLC STLMLC [id number] Common 00:00:00 00:00:00 [facility] 2021-04-12 2021-04-12 Outpatient STLMLC STLMLC [id number] Common 00:00:00 00:00:00 [facility] 2021-03-28 2021-03-28 Outpatient Olivia-Mbayo VFP VFP [id number] [facility] 05:32:00 05:32:00 _A_AH [id number] Family Practic e 2021-03-28 2021-03-28 (TEL) STLMLC STLMLC [id number] Co mmon 00:00:00 00:00:00 [facility] 2021-03-07 2021-03-07 Outpatient STLMLC STLMLC [id number] Common 00:00:00 00:00:00 [facility] 2021-02-08 2021-02-08 Outpatient STLMLC STLMLC [id number] Common 00:00:00 00:00:00 [facility] 2021-01-28 2021-01-30 Outside nullFlavo MNA [id number] Memoria 14:05:24 04:59:59 Medical r Neurology 01 l Records [place] 2021-01-28 2021-01-30 Outside nullFlavo MNA [id number] Memoria 14:05:24 04:59:59 Medical r Neurology 01 l Records [facility] 2021-01-28 2021-01-29 Outpatient MHMISCHER MHMISCHER [id number] 09:05:24 23:59:59 2021-01-18 2021-01-18 Outpatient Olivia-Loayo VFP VFP [id number] [facility]202 [facility] 01:43:00 01:43:00 _A_AH 60277 Family Practic e 2021-01-14 2021-01-14 Outpatient Canales_M ARYAN BAEZA [id number] -2020 Devoted 05:20:00 05:20:00 0416 Medica l Group 2021-01-14 2021-01-14 Caitlyn BAEZA MA - [id number] D evoted 00:00:00 00:00:00 Radha Jerez, Health Group ONCOLOGY COORDINATOR: [address] [address], [address], [place] [address] , Ph. 2021-01-14 2021-01-14 Outpatient ARYAN Jerez [id number] 00:00:00 00:00:00 Caitlyn [id number] Radha [id number] 2021-01-13 2021-01-13 Outpatient Canales_M DMG DMG [id number] -2020 Devoted 05:35:00 05:35:00 0415 Medica l Group 2021-01-12 2021-01-12 Outpatient Canales_M DMG DMG [id number] -2020 Devoted 04:16:00 04:16:00 0414 Medica l Group 2020-12-24 2020-12-25 Outpatient nullFlavo MNA [id number] Memoria 18:45:00 04:59:59 r Neurology 10 l Lana Cunhaann 2020-12-24 2020-12-25 Outpatient nullFlavo MNA [id number] Memoria 18:45:00 04:59:59 r Neurology 10 l Lana Cunhaann 2020-12-24 2020-12-24 Outpatient YURIDIA GarciaSCHER [id number] 13:45:00 23:59:59 Jeffrey Lupis Hollis 2020-12-24 2020-12-24 Outpatient MHIE PRUDENCIOIE [id number] Memoria 13:45:00 13:45:00 10 l [place] 2020-12-09 2020-12-09 Outpatient STLMLC STLMLC [id number] Common 00:00:00 00:00:00 [facility] 2020-12-09 2020-12-09 Outpatient STLMLC STLMLC [id number] Common 00:00:00 00:00:00 [facility] 2020-11-30 2020-11-30 Outpatient STLMLC STLMLC [id number] Common 00:00:00 00:00:00 [facility] 2020-11-23 2020-11-25 Outside nullFlavo MNA [id number] Memoria 17:49:36 05:59:59 Medical r Neurology 00 l Records Lana Cunhaann 2020-11-23 2020-11-25 Outside nullFlavo MNA [id number] Memoria 17:49:36 05:59:59 Medical r Neurology 00 l Records Knottalbin Cunhaann 2020-11-23 2020-11-24 Outpatient MHMISCHER MHMISCHER [id number] 11:49:36 23:59:59 00 2020-10-28 2020-10-28 Outpatient STLMLC STLMLC [id number] Common 00:00:00 00:00:00 [facility] 2020-10-25 2020-10-25 Outpatient STLMLC STLMLC [id number] Common 00:00:00 00:00:00 [facility] 2020-10-11 2020-10-11 Ambulatory nullFlavo MNA [id number] Memoria 21:15:00 21:15:00 [facility] 2020-10-11 2020-10-11 Ambulatory nullFlavo MNA [id number] Memoria 21:15:00 21:15:00 Pre-Reg r Neurology 09 l [facility] 2020-10-11 2020-10-11 Outpatient PRUDENCIOIE FRANCESCO [id number] Memoria 15:15:00 15:15:[address] [place] [address] 2020-10-11 2020-10-11 Outpatient YURIDIA Garcia [facility] [id number] 15:15:00 15:15:00 Jeffrey 09 [place] 2020-09-29 2020-09-29 Outpatient STLMLC STLMLC [id number] Common 00:00:00 00:00:00 [facility] 2020-09-05 2020-09-06 Observatio nullFlavo [facility] [id number] Memoria 02:36:00 21:43:00 n r [place] [facility] 2020-09-05 2020-09-06 Observatio nullFlavo [facility] [id number] Memoria 02:36:00 21:43:00 sherif r Raul [facility] 2020-09-04 2020-09-06 Outpatient Nae [facility] [id number] 20:36:00 15:43:00 Vincent Dorian Chu 2020-09-04 2020-09-04 Outpatient Nae [facility] [id number] 20:36:00 20:36:00 Vincent Alarcon Chu 2020-08-24 2020-08-24 Ambulatory nullFlavo MNA [id number] Memoria 19:15:00 19:15:00 Pre-Reg r Neurology 08 l [facility] 2020-08-24 2020-08-24 Ambulatory nullFlavo MNA [id number] Memoria 19:15:00 19:15:00 Pre-Reg r Neurology 08 l Lana [place] 2020-08-24 2020-08-24 Outpatient MHIE IE [id number] Memoria 13:15:00 13:15:00 08 lavelle [place] 2020-08-24 2020-08-24 Outpatient YURIDIA Garcia [facility] [id number] 13:15:00 13:15:00 Jeffrey 08 [place] 2020-06-28 2020-06-28 Emergency [place], [facility] [id number] [id number] 11:51:00 15:02:00 Asriah S [place] 350.1.13.10 [place] 4.2.7.2.686 [place] [id number] [facility] 2020-06-28 2020-06-28 Emergency [place], [facility] [id number] [facility] 11:51:00 15:02:00 Sariah Amin 350.1.13.10 i ty of [place] 4.2.7.2.686 [facility] [id number] [address] 2020-05-25 2020-05-26 Outpatient nullFlavo MNA [id number] Memoria 18:45:00 04:59:59 r Neurology 07 l Lana [place] 2020-05-25 2020-05-26 Outpatient nullFlavo MNA [id number] Memoria 18:45:00 04:59:59 r Neurology 07 l Lana [place] 2020-05-25 2020-05-25 Outpatient YURIDIA Garcia [facility] [id number] 13:45:00 23:59:59 Jeffrey Mariam Shafer 2020-05-25 2020-05-25 Outpatient MHIE IE [id number] Memoria 13:45:00 13:45:00 07 lavelle [place] 2020-03-30 2020-03-30 Ambulatory nullFlavo MNA [id number] Memoria 20:15:00 20:15:00 Pre-Reg r Neurology 05 l Lana [place] 2020-03-30 2020-03-30 Ambulatory nullFlavo MNA [id number] Memoria 20:15:00 20:15:00 Pre-Reg r Neurology 05 l Lana Carter 2020-03-30 2020-03-30 Outpatient MHIE MHIE [id number] Memoria 15:15:00 15:15:00 05 lavelle Carter 2020-03-30 2020-03-30 Outpatient [facility] [id number] 15:15:00 15:15:00 Jeffrey 05 [place] 2020-03-24 2020-03-25 Outpatient nullFlavo MNA [id number] Memoria 14:00:00 04:59:59 r Neurology 06 l Lana Carter 2020-03-24 2020-03-25 Outpatient nullFlavo MNA [id number] Memoria 14:00:00 04:59:59 r Neurology 06 l Lana Carter 2020-03-24 2020-03-24 Outpatient JoseGOSIASCHANJEL [id number] 09:00:00 23:59:59 Jeffrey Norma Shafer 2020-03-24 2020-03-24 Outpatient MHIE MHIE [id number] Memoria 09:00:00 09:00:00 06 lavelle Carter 2020-02-19 2020-02-19 Emergency [facility], [facility] [id number] 14:18:56 16:04:00 Maria Luisa Amin 350.1.13.[address] [place] [address] [place] [address] [id number] [facility] 2020-02-19 2020-02-19 Emergency [place], [facility] [id number] [facility] 14:18:56 16:04:00 Maria Luisa Amin 350.1.13.10 ity of [place] 4.2.7.2.[address] [place] [address] [id number] [facility] [address] 2019-12-11 2019-12-11 Outpatient Olivia-Mbayo VFP VFP [id number] [facility] 06:48:00 06:48:00 _A_AH 36184 Family Practic e 2019-12-11 2019-12-11 Outpatient Olivia-Mbayo VFP VFP [id number] [facility] 06:48:00 06:48:00 _A_AH 66196 Family Practic e 2019-12-09 2019-12-10 Emergency [place], [facility] [id number] 21:28:34 00:05:00 Timi Amin 350.1.13.10 [place] 4.2.7.2.686 [place] [id number] [facility] 2019-12-09 2019-12-10 [facility] [id number] [id number] Univers 21:28:34 00:05:00 Timi Amin 350.1.13.10 i ty of [place] 4.2.7.2.686 [facility] [id number] [address] 2019-12-09 2019-12-10 Emergency X TIMOTHY, [facility] ERT [id number] Univers 21:28:34 00:05:00 TIMI dominique [facility] 2019-11-19 2019-11-19 Outpatient Olivia-Mbayo VFP [facility] [id number] [facility] 07:16:00 07:16:00 _A_ [id number] Family Practic e 2019-09-16 2019-09-16 Ambulatory nullFlavo MNA [id number] Memoria 21:00:00 21:00:00 Pre-Reg r Neurology 04 l Knott Raul 2019-09-16 2019-09-16 Ambulatory nullFlavo MNA [id number] Memoria 21:00:00 21:00:00 Pre-Reg r Neurology 04 l Lana [place] 2019-09-16 2019-09-16 Outpatient MHIE MHIE [id number] Memoria 15:00:00 15:00:00 04 lavelle Raul 2019-09-16 2019-09-16 Outpatient YURIDIA Garcia MHMISCHER [id number] 15:00:00 15:00:00 Jeffrey Sonia Shafer 2019-07-24 2019-07-25 Outpatient nullFlavo MNA [id number] Memoria 19:15:00 04:59:59 r Neurology 03 l Lana Carter 2019-07-24 2019-07-25 Outpatient nullFlavo MNA [id number] Memoria 19:15:00 04:59:59 r Neurology 03 l Lana Carter 2019-07-24 2019-07-24 Outpatient YURIDIA Garcia MHMISCHER [id number] 14:15:00 23:59:59 Jeffrey 03 [place] 2019-07-24 2019-07-24 Outpatient MHIE IE [id number] Memoria 14:15:00 14:15:00 03 lavelle [place] 2019-05-21 2019-05-22 Outpatient nullFlavo MNA [id number] Memoria 19:30:00 04:59:59 r Neurology 02 l Lana [place] 2019-05-21 2019-05-22 Outpatient nullFlavo MNA [id number] Memoria 19:30:00 04:59:59 [facility] [place] 2019-05-21 2019-05-21 [id number] 14:30:00 23:59:59 Jeffrey Holl[place] 2019-05-21 2019-05-21 Outpatient MHIE MHIE [id number] Memoria 14:30:00 14:30:00 02 lavelle [place] 2019-03-21 2019-03-22 Outpatient nullFlavo MNA [id number] Memoria 19:30:00 04:59:59 [facility] [place] 2019-03-21 2019-03-22 Outpatient nullFlavo MNA [id number] Memoria 19:30:00 04:59:59 r [facility] [place] 2019-03-21 2019-03-21 Outpatient [id number] 14:30:00 23:59:59 Jeffrey Hollis 2019-03-21 2019-03-21 Outpatient MHIE MHIE [id number] Memoria 14:30:00 14:30:00 01 lavelle [place] 2019-02-21 2019-02-22 Outpatient nullFlavo MNA [id number] Memoria 20:00:00 04:59:59 r Neurology 00 l [place] 2019-02-21 2019-02-22 Outpatient nullFlavo MNA [id number] Memoria 20:00:00 04:59:59 r Neurology 00 l [facility] 2019-02-21 2019-02-21 Outpatient GOSIA GarciaSCHANJEL [facility] [id number] 15:00:00 23:59:59 Jeffrey 00 [place] Results Test Description Test Time Test Comments Results Result Comments Source CHEMISTRY 2022-11-28 09:49:00 Test Item Value Reference Range Interpretation Comme nts Potassium Lvl (test code = Potassium Lvl) 5.1 3.5-5.1 [facility]L1405-94-78 09:49:00 Test Item Value Reference Range Interpretation Comments Chloride Lvl (test code = Chloride Lvl) 108 95-109 [facility]TzrdxxeMZISSSODU7241-12-18 09:49:00 Test Item Value Reference Range Interpretation Comments CO2 (test code = CO2) 30 24-32 [facility]anoZvyqrqhSVEDWOXQN5789-22-76 09:49:00 Test Item Value Reference Range Interpretation Comments Calcium Lvl (test code = Calcium Lvl) 8.0 8.5-10.5 [facility]anoBhwwiuvNHSRUUHQC7062-05-94 09:49:00 Test Item Value Reference Range Interpretation Comments AGAP (test code = AGAP) 5.1 10.0-20.0 [facility]ano[facility]hwcjraTSVXPCCZB1611-00-22 09:49:00 Test Item Value Reference Range Interpretation Comments eGFR (test code = eGFR) 19 [facility]HR[facility]ETY3270-54-43 09:49:00 Test Item Value Reference Range Interpretation Comments Segs (test code = Segs) 49.2 45.0-75.0 [place] 222913-02-28 09:49:00 Test Item Value Reference Range Interpretation Comments Lymphocytes (test code = Lymphocytes) 33.0 20.0-40.0 [facility] CenterHelgocxNDSQCECOWI7837-84-27 09:49:00 Test Item Value Reference Range Interpretation Comments Monocytes (test code = Monocytes) 10.5 2.0-12.0 [facility] CenterXaeqhchCDKSUMUWFH8076-51-76 09:49:00 Test Item Value Reference Range Interpretation Comments Eosinophils (test code = 6.6 See_Comment [A utomated message] The Eosinophils) system which ge nerated this result tra nsmitted reference range : <=4.0. The reference r chritsiano was not used to int erpret this result as normal/abnormal . [facility] CenterMokhmjyYWQABQSDDN5109-22-76 09:49:00 Test Item Value Reference Range Interpretation Comments Basophils (test code = 0.7 See_Comment [Aut omated message] The Basophils) system which ge nerated this result tra nsmitted reference range : <=1.0. The reference r christiano was not used to int erpret this result as normal/abnormal . [facility] CenterWkybtpqNOOJBHEZGG2896-17-96 09:49:00 Test Item Value Reference Range Interpretation Comments Neutrophils # (test code = Neutrophils 3.0 1.5-8.1 #) [place] 222913-02-28 09:49:00 Test Item Value Reference Range Interpretation Comments Lymphocytes # (test code = Lymphocytes 2.0 1.0-5.5 #) [place] 222913-02-28 09:49:00 Test Item Value Reference Range Interpretation Comments Monocytes # (test code 0.7 See_Comment [Aut omated message] The = Monocytes #) system which generated this result tra nsmitted reference range : <=0.8. The reference r christiano was not used to int erpret this result as normal/abnormal . [place] 222913-02-28 09:49:00 Test Item Value Reference Range Interpretation Comments Eosinophils # (test code 0.4 See_Comment [A utomated message] The = Eosinophils #) system whic h generated this result tra nsmitted reference range : <=0.5. The reference r christiano was not used to int erpret this result as normal/abnormal . [facility] CenterUpezqwqVPXCLZIRNT4762-19-40 09:49:00 Test Item Value Reference Range Interpretation Comments WBC (test code = WBC) 6.2 3.7-10.4 [place] 222913-02-28 09:49:00 Test Item Value Reference Range Interpretation Comments RBC (test code = RBC) 3.06 4.20-5.40 [place] 222913-02-28 09:49:00 Test Item Value Reference Range Interpretation Comments Hgb (test code = Hgb) 9.2 12.0-16.0 [place] 222913-02-28 09:49:00 Test Item Value Reference Range Interpretation Comments Hct (test code = Hct) 28.0 36.0-48.0 [place] [address]-02-28 09:49:00 Test Item Value Reference Range Interpretation Comments MCV (test code = MCV) 91.5 80.0-98.0 [place] [address]-02-28 09:49:00 Test Item Value Reference Range Interpretation Comments MCH (test code = MCH) 30.0 pg 27.0-31.0 [place] [address]-02-28 09:49:00 Test Item Value Reference Range Interpretation Comments MCHC (test code = MCHC) 32.7 32.0-36.0 [place] 222913-02-28 09:49:00 Test Item Value Reference Range Interpretation Comments RDW (test code = RDW) 14.1 11.5-14.5 [place] [address]-02-28 09:49:00 Test Item Value Reference Range Interpretation Comments Platelet (test code = Platelet) 136 133-450 [place] 222913-02-28 09:49:00 Test Item Value Reference Range Interpretation Comments MPV (test code = MPV) 7.7 7.4-10.4 [place] [address]-02-28 09:49:00 Test Item Value Reference Range Interpretation Comments Segs (test code = Segs) 49.2 45.0-75.0 [place] [address]-02-28 09:49:00 Test Item Value Reference Range Interpretation Comments Lymphocytes (test code = Lymphocytes) 33.0 20.0-40.0 [place] [address]-02-28 09:49:00 Test Item Value Reference Range Interpretation Comments Monocytes (test code = Monocytes) 10.5 2.0-12.0 [place] [address]-02-28 09:49:00 Test Item Value Reference Range Interpretation Comments Eosinophils (test code = 6.6 See_Comment [A utomated message] The Eosinophils) system which ge nerated this result tra nsmitted reference range : <=4.0. The reference r christiano was not used to int erpret this result as normal/abnormal . [facility] CenterOliszluQEVCZCXMVF0683-97-87 09:49:00 Test Item Value Reference Range Interpretation Comments Basophils (test code = 0.7 See_Comment [Aut omated message] The Basophils) system which ge nerated this result tra nsmitted reference range : <=1.0. The reference r christiano was not used to int erpret this result as normal/abnormal . [place] [id number] 09:49:00 Test Item Value Reference Range Interpretation Comments Neutrophils # (test code = Neutrophils 3.0 1.5-8.1 #) [place] [id number] 09:49:00 Test Item Value Reference Range Interpretation Comments Lymphocytes # (test code = Lymphocytes 2.0 1.0-5.5 #) [id number] 09:49:00 Test Item Value Reference Range Interpretation Comments Monocytes # (test code 0.7 See_Comment [Aut omated message] The = Monocytes #) system which generated this result tra nsmitted reference range : <=0.8. The reference r christiano was not used to int erpret this result as normal/abnormal . [id number] 09:49:00 Test Item Value Reference Range Interpretation Comments Eosinophils # (test code 0.4 See_Comment [A utomated message] The = Eosinophils #) system whic h generated this result tra nsmitted reference range : <=0.5. The reference r christiano was not used to int erpret this result as normal/abnormal . [facility] [id number] 09:49:00 Test Item Value Reference Range Interpretation Comments WBC (test code = WBC) 6.2 3.7-10.4 [facility] CenterSumsxtsVEMLZGGBSV5974-40-40 09:49:00 Test Item Value Reference Range Interpretation Comments RBC (test code = RBC) 3.06 4.20-5.40 [place] 222913-02-28 09:49:00 Test Item Value Reference Range Interpretation Comments Hgb (test code = Hgb) 9.2 12.0-16.0 [facility]IOCHNYQW7939[facility]53-22 09:49:00 Test Item Value Reference Range Interpretation Comments Hct (test code = Hct) 28.0 36.0-48.0 [place] 222913-02-28 09:49:00 Test Item Value Reference Range Interpretation Comments MCV (test code = MCV) 91.5 80.0-98.0 [place] 222913-02-28 09:49:00 Test Item Value Reference Range Interpretation Comments MCH (test code = MCH) 30.0 pg 27.0-31.0 [place] 222913-02-28 09:49:00 Test Item Value Reference Range Interpretation Comments MCHC (test code = MCHC) 32.7 32.0-36.0 [place] 222913-02-28 09:49:00 Test Item Value Reference Range Interpretation Comments RDW (test code = RDW) 14.1 11.5-14.5 [place] [address]-02-28 09:49:00 Test Item Value Reference Range Interpretation Comments Platelet (test code = Platelet) 136 133-450 [place] 222913-02-28 09:49:00 Test Item Value Reference Range Interpretation Comments MPV (test code = MPV) 7.7 7.4-10.4 [place] 678383-02-28 09:49:00 Test Item Value Reference Range Interpretation Comments Glucose Lvl (test code = Glucose Lvl) 93 70-99 [place] 678383-02-28 09:49:00 Test Item Value Reference Range Interpretation Comments BUN (test code = BUN) 30 7-22 [place] 678383-02-28 09:49:00 Test Item Value Reference Range Interpretation Comments Creatinine Lvl (test code = Creatinine 2.50 0.50-1.40 Lvl) [place] 678383-02-28 09:49:00 Test Item Value Reference Range Interpretation Comments Sodium Lvl (test code = Sodium Lvl) 138 135-145 [place] 678383-02-28 09:49:00 Test Item Value Reference Range Interpretation Comments Potassium Lvl (test code = Potassium 5.1 3.5-5.1 Lvl) [place] 678383-02-28 09:49:00 Test Item Value Reference Range Interpretation Comments Chloride Lvl (test code = Chloride Lvl) 108 95-109 [place] 678383-02-28 09:49:00 Test Item Value Reference Range Interpretation Comments CO2 (test code = CO2) 30 24-32 [place] 678383-02-28 09:49:00 Test Item Value Reference Range Interpretation Comments Calcium Lvl (test code = Calcium Lvl) 8.0 8.5-10.5 [place] 678383-02-28 09:49:00 Test Item Value Reference Range Interpretation Comments AGAP (test code = AGAP) 5.1 10.0-20.0 [place] 678383-02-28 09:49:00 Test Item Value Reference Range Interpretation Comments eGFR (test code = eGFR) 19 [place] 087233-02-28 09:49:00 Test Item Value Reference Range Interpretation Comments Glucose Lvl (test code = Glucose Lvl) 93 70-99 [facility]BkwjvjvTCGMUXTTV7777-13-89 09:49:00 Test Item Value Reference Range Interpretation Comments BUN (test code = BUN) 30 7-22 [facility]anoMobtbitIPGDGYHOT7799-98-35 09:49:00 Test Item Value Reference Range Interpretation Comments Creatinine Lvl (test code = Creatinine 2.50 0.50-1.40 Lvl) [facility]anoZklmceeLTAQOIJDC1786-49-81 09:49:00 Test Item Value Reference Range Interpretation Comments Sodium Lvl (test code = Sodium Lvl) 138 135-145 [facility] PlanoXlpneuhJWLEHGWWX0823-63-41 09:49:00 Test Item Value Reference Range Interpretation Comments Potassium Lvl (test code = Potassium 5.1 3.5-5.1 Lvl) [facility]anoWlqhowrTHAEYXQOC4727-28-58 09:49:00 Test Item Value Reference Range Interpretation Comments Chloride Lvl (test code = Chloride Lvl) 108 95-109 [facility]anoEofyhpzZNDIMZHEN1492-14-26 09:49:00 Test Item Value Reference Range Interpretation Comments CO2 (test code = CO2) 30 24-32 [facility] PlanoKnvabqvAREIGEAJF4685-45-55 09:49:00 Test Item Value Reference Range Interpretation Comments Calcium Lvl (test code = Calcium Lvl) 8.0 8.5-10.5 [facility]anoZtegvxaQPYPFWVIX2206-26-36 09:49:00 Test Item Value Reference Range Interpretation Comments AGAP (test code = AGAP) 5.1 10.0-20.0 [facility]anoAgdkzprQTXSYLFFF5671-77-12 09:49:00 Test Item Value Reference Range Interpretation Comments eGFR (test code = eGFR) 19 [facility] CenterHxtdscoNPVYQOCNON0340-95-36 09:49:00 Test Item Value Reference Range Interpretation Comments Segs (test code = Segs) 49.2 45.0-75.0 [place] 222913-02-28 09:49:00 Test Item Value Reference Range Interpretation Comments Lymphocytes (test code = Lymphocytes) 33.0 20.0-40.0 [facility] CenterTtnsbvsPHRUKYDAMX7492-22-33 09:49:00 Test Item Value Reference Range Interpretation Comments Monocytes (test code = Monocytes) 10.5 2.0-12.0 [facility] CenterVelzcpwKWRDSYPIZW3236-10-88 09:49:00 Test Item Value Reference Range Interpretation Comments Eosinophils (test code = 6.6 See_Comment [A utomated message] The Eosinophils) system which ge nerated this result tra nsmitted reference range : <=4.0. The reference r christiano was not used to int erpret this result as normal/abnormal . [facility] CenterAmopmfrESZOQUXDCF8900-14-70 09:49:00 Test Item Value Reference Range Interpretation Comments Basophils (test code = 0.7 See_Comment [Aut omated message] The Basophils) system which ge nerated this result tra nsmitted reference range : <=1.0. The reference r christiano was not used to int erpret this result as normal/abnormal . [facility] CenterQvouhiiQBBIGSGCEV8258-45-48 09:49:00 Test Item Value Reference Range Interpretation Comments Neutrophils # (test code = Neutrophils 3.0 1.5-8.1 #) [facility] CenterPhgcglzEALOUOXOEB5819-13-67 09:49:00 Test Item Value Reference Range Interpretation Comments Lymphocytes # (test code = Lymphocytes 2.0 1.0-5.5 #) [place] 222913-02-28 09:49:00 Test Item Value Reference Range Interpretation Comments Monocytes # (test code 0.7 See_Comment [Aut omated message] The = Monocytes #) system which generated this result tra nsmitted reference range : <=0.8. The reference r christiano was not used to int erpret this result as normal/abnormal . [facility] CenterKkgbowcVSKCQNVVTG4927-25-63 09:49:00 Test Item Value Reference Range Interpretation Comments Eosinophils # (test code 0.4 See_Comment [A utomated message] The = Eosinophils #) system [facility] h generated this result tra nsmitted reference range : <=0.5. The reference r christiano was not used to int erpret this result as normal/abnormal . [facility] CenterKafgrqhFCTQVWJJMW7515-07-23 09:49:00 Test Item Value Reference Range Interpretation Comments WBC (test code = WBC) 6.2 3.7-10.4 [place] 222913-02-28 09:49:00 Test Item Value Reference Range Interpretation Comments RBC (test code = RBC) 3.06 4.20-5.40 [place] 222913-02-28 09:49:00 Test Item Value Reference Range Interpretation Comments Hgb (test code = Hgb) 9.2 12.0-16.0 [place] 222913-02-28 09:49:00 Test Item Value Reference Range Interpretation Comments Hct (test code = Hct) 28.0 36.0-48.0 [place] 222913-02-28 09:49:00 Test Item Value Reference Range Interpretation Comments MCV (test code = MCV) 91.5 80.0-98.0 [place] 222913-02-28 09:49:00 Test Item Value Reference Range Interpretation Comments MCH (test code = MCH) 30.0 pg 27.0-31.0 [place] [address]-02-28 09:49:00 Test Item Value Reference Range Interpretation Comments MCHC (test code = MCHC) 32.7 32.0-36.0 [place] 222913-02-28 09:49:00 Test Item Value Reference Range Interpretation Comments RDW (test code = RDW) 14.1 11.5-14.5 [place] 222913-02-28 09:49:00 Test Item Value Reference Range Interpretation Comments Platelet (test code = Platelet) 136 133-450 [facility] CenterTunwzpbPBIKPUULMT9300-89-60 09:49:00 Test Item Value Reference Range Interpretation Comments MPV (test code = MPV) 7.7 7.4-10.4 [place] 222913-02-28 09:49:00 Test Item Value Reference Range Interpretation Comments Segs (test code = Segs) 49.2 45.0-75.0 [facility] CenterOrmkxzcVBCKNJJYET6651-49-91 09:49:00 Test Item Value Reference Range Interpretation Comments Lymphocytes (test code = Lymphocytes) 33.0 20.0-40.0 [place] 222913-02-28 09:49:00 Test Item Value Reference Range Interpretation Comments Monocytes (test code = Monocytes) 10.5 2.0-12.0 [place] [address]-02-28 09:49:00 Test Item Value Reference Range Interpretation Comments Eosinophils (test code = 6.6 See_Comment [A utomated message] The Eosinophils) system which ge nerated this result tra nsmitted reference range : <=4.0. The reference r christiano was not used to int erpret this result as normal/abnormal . [facility] CenterYwbihybRYTSHYGUGU7222-28-37 09:49:00 Test Item Value Reference Range Interpretation Comments Basophils (test code = 0.7 See_Comment [Aut omated message] The Basophils) system which ge nerated this result tra nsmitted reference range : <=1.0. The reference r christiano was not used to int erpret this result as normal/abnormal . [facility] CenterJjtncztBUPAREKRFP0352-33-15 09:49:00 Test Item Value Reference Range Interpretation Comments Neutrophils # (test code = Neutrophils 3.0 1.5-8.1 #) [place] 222913-02-28 09:49:00 Test Item Value Reference Range Interpretation Comments Lymphocytes # (test code = Lymphocytes 2.0 1.0-5.5 #) [place] 222913-02-28 09:49:00 Test Item Value Reference Range Interpretation Comments Monocytes # (test code 0.7 See_Comment [Aut omated message] The = Monocytes #) system which generated this result tra nsmitted reference range : <=0.8. The reference r christiano was not used to int erpret this result as normal/abnormal . [facility] CenterOfdnmpvUPJSPGUBIY2679-22-77 09:49:00 Test Item Value Reference Range Interpretation Comments Eosinophils # (test code 0.4 See_Comment [A utomated message] The = Eosinophils #) system whic h generated this result tra nsmitted reference range : <=0.5. The reference r christiano was not used to int erpret this result as normal/abnormal . [facility] CenterBhensxuJBLVOWUWHX4096-26-79 09:49:00 Test Item Value Reference Range Interpretation Comments WBC (test code = WBC) 6.2 3.7-10.4 [place] 222913-02-28 09:49:00 Test Item Value Reference Range Interpretation Comments RBC (test code = RBC) 3.06 4.20-5.40 [place] [address]-02-28 09:49:00 Test Item Value Reference Range Interpretation Comments Hgb (test code = Hgb) 9.2 12.0-16.0 [place] [address]-02-28 09:49:00 Test Item Value Reference Range Interpretation Comments Hct (test code = Hct) 28.0 36.0-48.0 [place] 222913-02-28 09:49:00 Test Item Value Reference Range Interpretation Comments MCV (test code = MCV) 91.5 80.0-98.0 [place] [address]-02-28 09:49:00 Test Item Value Reference Range Interpretation Comments MCH (test code = MCH) 30.0 pg 27.0-31.0 [place] [address]-02-28 09:49:00 Test Item Value Reference Range Interpretation Comments MCHC (test code = MCHC) 32.7 32.0-36.0 [place] [address]-02-28 09:49:00 Test Item Value Reference Range Interpretation Comments RDW (test code = RDW) 14.1 11.5-14.5 [place] [address]-02-28 09:49:00 Test Item Value Reference Range Interpretation Comments Platelet (test code = Platelet) 136 133-450 [place] [address]-02-28 09:49:00 Test Item Value Reference Range Interpretation Comments MPV (test code = MPV) 7.7 7.4-10.4 [place] 678383-02-28 09:49:00 Test Item Value Reference Range Interpretation Comments Glucose Lvl (test code = Glucose Lvl) 93 70-99 [place] 678383-02-28 09:49:00 Test Item Value Reference Range Interpretation Comments BUN (test code = BUN) 30 7-22 [facility]2023-02-28 09:49:00 Test Item Value Reference Range Interpretation Comments Creatinine Lvl (test code = Creatinine 2.50 0.50-1.40 Lvl) [place] 678383-02-28 09:49:00 Test Item Value Reference Range Interpretation Comments Sodium Lvl (test code = Sodium Lvl) 138 135-145 [place] 678383-02-28 09:49:00 Test Item Value Reference Range Interpretation Comments Potassium Lvl (test code = Potassium 5.1 3.5-5.1 Lvl) [place] 678383-02-28 09:49:00 Test Item Value Reference Range Interpretation Comments Chloride Lvl (test code = Chloride Lvl) 108 95-109 [place] 678383-02-28 09:49:00 Test Item Value Reference Range Interpretation Comments CO2 (test code = CO2) 30 24-32 [place] [address]-02-28 09:49:00 Test Item Value Reference Range Interpretation Comments Calcium Lvl (test code = Calcium Lvl) 8.0 8.5-10.5 [facility]2023-02-28 09:49:00 Test Item Value Reference Range Interpretation Comments AGAP (test code = AGAP) 5.1 10.0-20.0 [facility]2023-02-28 09:49:00 Test Item Value Reference Range Interpretation Comments eGFR (test code = eGFR) 19 [facility]anoMbwlytjTUUEAJHHR8237-11-45 09:49:00 Test Item Value Reference Range Interpretation Comments Glucose Lvl (test code = Glucose Lvl) 93 70-99 [place] 087233-02-28 09:49:00 Test Item Value Reference Range Interpretation Comments BUN (test code = BUN) 30 7-22 [facility]anoGvgryhjRWHHYSYEE8916-64-28 09:49:00 Test Item Value Reference Range Interpretation Comments Creatinine Lvl (test code = Creatinine 2.50 0.50-1.40 Lvl) [facility]anoSdtmrloOQOACUSKS1190-18-65 09:49:00 Test Item Value Reference Range Interpretation Comments Sodium Lvl (test code = Sodium Lvl) 138 135-145 [facility] PlanoEtdmmryQWAYVQAJJ0137-06-37 09:49:00 Test Item Value Reference Range Interpretation Comments Potassium Lvl (test code = Potassium 5.1 3.5-5.1 Lvl) [facility] PlanoIkarzquOMSGXQLET0078-44-50 09:49:00 Test Item Value Reference Range Interpretation Comments Chloride Lvl (test code = Chloride Lvl) 108 95-109 [facility] PlanoUrbqwfzWHIAPAGBN1480-91-97 09:49:00 Test Item Value Reference Range Interpretation Comments CO2 (test code = CO2) 30 24-32 [facility] PlanoLxaqoxhAMOQYVZAM7946-29-70 09:49:00 Test Item Value Reference Range Interpretation Comments Calcium Lvl (test code = Calcium Lvl) 8.0 8.5-10.5 [facility]anoMvojfxnQISNQFBHL0376-66-02 09:49:00 Test Item Value Reference Range Interpretation Comments AGAP (test code = AGAP) 5.1 10.0-20.0 [facility] PlanoDzjvqxqKASFOAFKZ4118-16-11 09:49:00 Test Item Value Reference Range Interpretation Comments eGFR (test code = eGFR) 19 [place] 222913-02-28 09:49:00 Test Item Value Reference Range Interpretation Comments Segs (test code = Segs) 49.2 45.0-75.0 [place] [address]-02-28 09:49:00 Test Item Value Reference Range Interpretation Comments Lymphocytes (test code = Lymphocytes) 33.0 20.0-40.0 [place] [address]-02-28 09:49:00 Test Item Value Reference Range Interpretation Comments Monocytes (test code = Monocytes) 10.5 2.0-12.0 [place] [address]-02-28 09:49:00 Test Item Value Reference Range Interpretation Comments Eosinophils (test code = 6.6 See_Comment [A utomated message] The Eosinophils) system which ge nerated this result tra nsmitted reference range : <=4.0. The reference r christiano was not used to int erpret this result as normal/abnormal . [place] [address]-02-28 09:49:00 Test Item Value Reference Range Interpretation Comments Basophils (test code = 0.7 See_Comment [Aut omated message] The Basophils) system which ge nerated this result tra nsmitted reference range : <=1.0. The reference r christiano was not used to int erpret this result as normal/abnormal . [place] 222913-02-28 09:49:00 Test Item Value Reference Range Interpretation Comments Neutrophils # (test code = Neutrophils 3.0 1.5-8.1 #) [place] 222913-02-28 09:49:00 Test Item Value Reference Range Interpretation Comments Lymphocytes # (test code = Lymphocytes 2.0 1.0-5.5 #) [place] [address]-02-28 09:49:00 Test Item Value Reference Range Interpretation Comments Monocytes # (test code 0.7 See_Comment [Aut omated message] The = Monocytes #) system which generated this result tra nsmitted reference range : <=0.8. The reference r christiano was not used to int erpret this result as normal/abnormal . [place] [address]-02-28 09:49:00 Test Item Value Reference Range Interpretation Comments Eosinophils # (test code 0.4 See_Comment [A utomated message] The = Eosinophils #) system whic h generated this result tra nsmitted reference range : <=0.5. The reference r christiano was not used to int erpret this result as normal/abnormal . [facility] CenterGhngydpYMDIZUAPGM1345-06-32 09:49:00 Test Item Value Reference Range Interpretation Comments WBC (test code = WBC) 6.2 3.7-10.4 [facility] CenterUkqymefUCVHDFMKQD3378-50-06 09:49:00 Test Item Value Reference Range Interpretation Comments RBC (test code = RBC) 3.06 4.20-5.40 [place] 222913-02-28 09:49:00 Test Item Value Reference Range Interpretation Comments Hgb (test code = Hgb) 9.2 12.0-16.0 [place] 222913-02-28 09:49:00 Test Item Value Reference Range Interpretation Comments Hct (test code = Hct) 28.0 36.0-48.0 [place] 222913-02-28 09:49:00 Test Item Value Reference Range Interpretation Comments MCV (test code = MCV) 91.5 80.0-98.0 [facility] CenterGxpizpeKOVOTFLEZZ2491-30-21 09:49:00 Test Item Value Reference Range Interpretation Comments MCH (test code = MCH) 30.0 pg 27.0-31.0 [facility] CenterNoicdbmORQEBCCIUD6944-58-91 09:49:00 Test Item Value Reference Range Interpretation Comments MCHC (test code = MCHC) 32.7 32.0-36.0 [facility] CenterGsnajmgQIVRQZFCUY8295-27-99 09:49:00 Test Item Value Reference Range Interpretation Comments RDW (test code = RDW) 14.1 11.5-14.5 [place] 222913-02-28 09:49:00 Test Item Value Reference Range Interpretation Comments Platelet (test code = Platelet) 136 133-450 [facility] CenterXsgbjvbDZNXGQQIIH5144-61-41 09:49:00 Test Item Value Reference Range Interpretation Comments MPV (test code = MPV) 7.7 7.4-10.4 [place] 222913-02-28 09:49:00 Test Item Value Reference Range Interpretation Comments Segs (test code = Segs) 49.2 45.0-75.0 [place] 222913-02-28 09:49:00 Test Item Value Reference Range Interpretation Comments Lymphocytes (test code = Lymphocytes) 33.0 20.0-40.0 [place] [address]-02-28 09:49:00 Test Item Value Reference Range Interpretation Comments Monocytes (test code = Monocytes) 10.5 2.0-12.0 [place] [address]-02-28 09:49:00 Test Item Value Reference Range Interpretation Comments Eosinophils (test code = 6.6 See_Comment [A utomated message] The Eosinophils) system which ge nerated this result tra nsmitted reference range : <=4.0. The reference r christiano was not used to int erpret this result as normal/abnormal . [place] [address]-02-28 09:49:00 Test Item Value Reference Range Interpretation Comments Basophils (test code = 0.7 See_Comment [Aut omated message] The Basophils) system which ge nerated this result tra nsmitted reference range : <=1.0. The reference r christiano was not used to int erpret this result as normal/abnormal . [place] [address]-02-28 09:49:00 Test Item Value Reference Range Interpretation Comments Neutrophils # (test code = Neutrophils 3.0 1.5-8.1 #) [place] [address]-02-28 09:49:00 Test Item Value Reference Range Interpretation Comments Lymphocytes # (test code = Lymphocytes 2.0 1.0-5.5 #) [place] [address]-02-28 09:49:00 Test Item Value Reference Range Interpretation Comments Monocytes # (test code 0.7 See_Comment [Aut omated message] The = Monocytes #) system which generated this result tra nsmitted reference range : <=0.8. The reference r christiano was not used to int erpret this result as normal/abnormal . [place] [address]-02-28 09:49:00 Test Item Value Reference Range Interpretation Comments Eosinophils # (test code 0.4 See_Comment [A utomated message] The = Eosinophils #) system whic h generated this result tra nsmitted reference range : <=0.5. The reference r christiano was not used to int erpret this result as normal/abnormal . [place] 222913-02-28 09:49:00 Test Item Value Reference Range Interpretation Comments WBC (test code = WBC) 6.2 3.7-10.4 [place] [address]-02-28 09:49:00 Test Item Value Reference Range Interpretation Comments RBC (test code = RBC) 3.06 4.20-5.40 [place] 222913-02-28 09:49:00 Test Item Value Reference Range Interpretation Comments Hgb (test code = Hgb) 9.2 12.0-16.0 [place] [address]-02-28 09:49:00 Test Item Value Reference Range Interpretation Comments Hct (test code = Hct) 28.0 36.0-48.0 [place] [address]-02-28 09:49:00 Test Item Value Reference Range Interpretation Comments MCV (test code = MCV) 91.5 80.0-98.0 [place] 222913-02-28 09:49:00 Test Item Value Reference Range Interpretation Comments MCH (test code = MCH) 30.0 pg 27.0-31.0 [place] 222913-02-28 09:49:00 Test Item Value Reference Range Interpretation Comments MCHC (test code = MCHC) 32.7 32.0-36.0 [place] 222913-02-28 09:49:00 Test Item Value Reference Range Interpretation Comments RDW (test code = RDW) 14.1 11.5-14.5 [facility] CenterRuafdkdCKDMCPBKNJ7682-56-13 09:49:00 Test Item Value Reference Range Interpretation Comments Platelet (test code = Platelet) 136 133-450 [place] 222913-02-28 09:49:00 Test Item Value Reference Range Interpretation Comments MPV (test code = MPV) 7.7 7.4-10.4 [facility]2023-02-28 09:49:00 Test Item Value Reference Range Interpretation Comments Glucose Lvl (test code = Glucose Lvl) 93 70-99 [facility]2023-02-28 09:49:00 Test Item Value Reference Range Interpretation Comments BUN (test code = BUN) 30 7-22 [place] 678383-02-28 09:49:00 Test Item Value Reference Range Interpretation Comments Creatinine Lvl (test code = Creatinine 2.50 0.50-1.40 Lvl) [facility]2023-02-28 09:49:00 Test Item Value Reference Range Interpretation Comments Sodium Lvl (test code = Sodium Lvl) 138 135-145 [place] 678383-02-28 09:49:00 Test Item Value Reference Range Interpretation Comments Potassium Lvl (test code = Potassium 5.1 3.5-5.1 Lvl) [place] 678383-02-28 09:49:00 Test Item Value Reference Range Interpretation Comments Chloride Lvl (test code = Chloride Lvl) 108 95-109 [place] 678383-02-28 09:49:00 Test Item Value Reference Range Interpretation Comments CO2 (test code = CO2) 30 24-32 [place] 678383-02-28 09:49:00 Test Item Value Reference Range Interpretation Comments Calcium Lvl (test code = Calcium Lvl) 8.0 8.5-10.5 [place] 678383-02-28 09:49:00 Test Item Value Reference Range Interpretation Comments AGAP (test code = AGAP) 5.1 10.0-20.0 [place] 678383-02-28 09:49:00 Test Item Value Reference Range Interpretation Comments eGFR (test code = eGFR) 19 [facility]anoZvagdmjWUIQHRBPB1790-05-52 09:49:00 Test Item Value Reference Range Interpretation Comments Glucose Lvl (test code = Glucose Lvl) 93 70-99 [facility] PlanoYkeauevMJQZAFSQC8685-30-70 09:49:00 Test Item Value Reference Range Interpretation Comments BUN (test code = BUN) 30 7-22 [facility] PlanoZnjktxiKZPBDUFAT0269-76-69 09:49:00 Test Item Value Reference Range Interpretation Comments Creatinine Lvl (test code = Creatinine 2.50 0.50-1.40 Lvl) [place] 087233-02-28 09:49:00 Test Item Value Reference Range Interpretation Comments Sodium Lvl (test code = Sodium Lvl) 138 135-145 [place] 087233-02-28 09:49:00 Test Item Value Reference Range Interpretation Comments Potassium Lvl (test code = Potassium 5.1 3.5-5.1 Lvl) [facility] PlanoAvkfribOBFBPAMVH0478-15-98 09:49:00 Test Item Value Reference Range Interpretation Comments Chloride Lvl (test code = Chloride Lvl) 108 95-109 [address]02-28 09:49:00 Test Item Value Reference Range Interpretation Comments CO2 (test code = CO2) 30 24-32 [place] [address]-02-28 09:49:00 Test Item Value Reference Range Interpretation Comments Calcium Lvl (test code = Calcium Lvl) 8.0 8.5-10.5 [place] 087233-02-28 09:49:00 Test Item Value Reference Range Interpretation Comments AGAP (test code = AGAP) 5.1 10.0-20.0 [place] [address]-02-28 09:49:00 Test Item Value Reference Range Interpretation Comments eGFR (test code = eGFR) 19 [place] 222913-02-28 09:49:00 Test Item Value Reference Range Interpretation Comments Segs (test code = Segs) 49.2 45.0-75.0 [place] [address]-02-28 09:49:00 Test Item Value Reference Range Interpretation Comments Lymphocytes (test code = Lymphocytes) 33.0 20.0-40.0 [place] 222913-02-28 09:49:00 Test Item Value Reference Range Interpretation Comments Monocytes (test code = Monocytes) 10.5 2.0-12.0 [place] 222913-02-28 09:49:00 Test Item Value Reference Range Interpretation Comments Eosinophils (test code = 6.6 See_Comment [A utomated message] The Eosinophils) system which ge nerated this result tra nsmitted reference range : <=4.0. The reference r christiano was not used to int erpret this result as normal/abnormal . [facility]jbocwdGXTHDVUTOG8520[facility]32-61 09:49:00 Test Item Value Reference Range Interpretation Comments Basophils (test code = 0.7 See_Comment [Aut omated message] The Basophils) system which ge nerated this result tra nsmitted reference range : <=1.0. The reference r christiano was not used to int erpret this result as normal/abnormal . [facility] CenterGnbwxmuCXOTBGOHGH5341-47-08 09:49:00 Test Item Value Reference Range Interpretation Comments Neutrophils # (test code = Neutrophils 3.0 1.5-8.1 #) [place] 222913-02-28 09:49:00 Test Item Value Reference Range Interpretation Comments Lymphocytes # (test code = Lymphocytes 2.0 1.0-5.5 #) [place] 222913-02-28 09:49:00 Test Item Value Reference Range Interpretation Comments Monocytes # (test code 0.7 See_Comment [Aut omated message] The = Monocytes #) system which generated this result tra nsmitted reference range : <=0.8. The reference r christiano was not used to int erpret this result as normal/abnormal . [place] 222913-02-28 09:49:00 Test Item Value Reference Range Interpretation Comments Eosinophils # (test code 0.4 See_Comment [A utomated message] The = Eosinophils #) system whic h generated this result tra nsmitted reference range : <=0.5. The reference r christiano was not used to int erpret this result as normal/abnormal . [place] 222913-02-28 09:49:00 Test Item Value Reference Range Interpretation Comments WBC (test code = WBC) 6.2 3.7-10.4 [place] 222913-02-28 09:49:00 Test Item Value Reference Range Interpretation Comments RBC (test code = RBC) 3.06 4.20-5.40 [place] [address]-02-28 09:49:00 Test Item Value Reference Range Interpretation Comments Hgb (test code = Hgb) 9.2 12.0-16.0 [place] [address]-02-28 09:49:00 Test Item Value Reference Range Interpretation Comments Hct (test code = Hct) 28.0 36.0-48.0 [place] 222913-02-28 09:49:00 Test Item Value Reference Range Interpretation Comments MCV (test code = MCV) 91.5 80.0-98.0 [place] [address]-02-28 09:49:00 Test Item Value Reference Range Interpretation Comments MCH (test code = MCH) 30.0 pg 27.0-31.0 [place] [address]-02-28 09:49:00 Test Item Value Reference Range Interpretation Comments MCHC (test code = MCHC) 32.7 32.0-36.0 [place] [address]-02-28 09:49:00 Test Item Value Reference Range Interpretation Comments RDW (test code = RDW) 14.1 11.5-14.5 [place] [address]-02-28 09:49:00 Test Item Value Reference Range Interpretation Comments Platelet (test code = Platelet) 136 133-450 [place] [address]-02-28 09:49:00 Test Item Value Reference Range Interpretation Comments MPV (test code = MPV) 7.7 7.4-10.4 [place] [address]-02-28 09:49:00 Test Item Value Reference Range Interpretation Comments Segs (test code = Segs) 49.2 45.0-75.0 [place] [address]-02-28 09:49:00 Test Item Value Reference Range Interpretation Comments Lymphocytes (test code = Lymphocytes) 33.0 20.0-40.0 [place] [address]-02-28 09:49:00 Test Item Value Reference Range Interpretation Comments Monocytes (test code = Monocytes) 10.5 2.0-12.0 [place] [address]-02-28 09:49:00 Test Item Value Reference Range Interpretation Comments Eosinophils (test code = 6.6 See_Comment [A utomated message] The Eosinophils) system which ge nerated this result tra nsmitted reference range : <=4.0. The reference r christiano was not used to int erpret this result as normal/abnormal . [place] [address]-02-28 09:49:00 Test Item Value Reference Range Interpretation Comments Basophils (test code = 0.7 See_Comment [Aut omated message] The Basophils) system which ge nerated this result tra nsmitted reference range : <=1.0. The reference r christiano was not used to int erpret this result as normal/abnormal . [place] 222913-02-28 09:49:00 Test Item Value Reference Range Interpretation Comments Neutrophils # (test code = Neutrophils 3.0 1.5-8.1 #) [place] [address]-02-28 09:49:00 Test Item Value Reference Range Interpretation Comments Lymphocytes # (test code = Lymphocytes 2.0 1.0-5.5 #) [place] [address]-02-28 09:49:00 Test Item Value Reference Range Interpretation Comments Monocytes # (test code 0.7 See_Comment [Aut omated message] The = Monocytes #) system which generated this result tra nsmitted reference range : <=0.8. The reference r christiano was not used to int erpret this result as normal/abnormal . [facility] CenterRsmczvzBPVKPHYFZY7617-64-75 09:49:00 Test Item Value Reference Range Interpretation Comments Eosinophils # (test code 0.4 See_Comment [A utomated message] The = Eosinophils #) system whic h generated this result tra nsmitted reference range : <=0.5. The reference r christiano was not used to int erpret this result as normal/abnormal . [facility] CenterVofetraRHOEXKFKYY1639-67-92 09:49:00 Test Item Value Reference Range Interpretation Comments WBC (test code = WBC) 6.2 3.7-10.4 [place] 222913-02-28 09:49:00 Test Item Value Reference Range Interpretation Comments RBC (test code = RBC) 3.06 4.20-5.40 [place] 222913-02-28 09:49:00 Test Item Value Reference Range Interpretation Comments Hgb (test code = Hgb) 9.2 12.0-16.0 [place] 222913-02-28 09:49:00 Test Item Value Reference Range Interpretation Comments Hct (test code = Hct) 28.0 36.0-48.0 [facility] CenterCaegpjfDMDNOUQBSG2416-41-20 09:49:00 Test Item Value Reference Range Interpretation Comments MCV (test code = MCV) 91.5 80.0-98.0 [place] 222913-02-28 09:49:00 Test Item Value Reference Range Interpretation Comments MCH (test code = MCH) 30.0 pg 27.0-31.0 [facility] CenterVemqdqtEQRZYYKWAE6631-25-82 09:49:00 Test Item Value Reference Range Interpretation Comments MCHC (test code = MCHC) 32.7 32.0-36.0 [place] 222913-02-28 09:49:00 Test Item Value Reference Range Interpretation Comments RDW (test code = RDW) 14.1 11.5-14.5 [place] 222913-02-28 09:49:00 Test Item Value Reference Range Interpretation Comments Platelet (test code = Platelet) 136 133-450 [facility] CenterVjxjhmtEDEIWYFQLS9234-72-80 09:49:00 Test Item Value Reference Range Interpretation Comments MPV (test code = MPV) 7.7 7.4-10.4 [place] 678383-02-28 09:49:00 Test Item Value Reference Range Interpretation Comments Glucose Lvl (test code = Glucose Lvl) 93 70-99 [place] 678383-02-28 09:49:00 Test Item Value Reference Range Interpretation Comments BUN (test code = BUN) 30 04-21 [place] 678383-02-28 09:49:00 Test Item Value Reference Range Interpretation Comments Creatinine Lvl (test code = Creatinine 2.50 0.50-1.40 Lvl) [place] 678383-02-28 09:49:00 Test Item Value Reference Range Interpretation Comments Sodium Lvl (test code = Sodium Lvl) 138 135-145 [place] 678383-02-28 09:49:00 Test Item Value Reference Range Interpretation Comments Potassium Lvl (test code = Potassium 5.1 3.5-5.1 Lvl) [place] 678383-02-28 09:49:00 Test Item Value Reference Range Interpretation Comments Chloride Lvl (test code = Chloride Lvl) 108 95-109 [place] 678383-02-28 09:49:00 Test Item Value Reference Range Interpretation Comments CO2 (test code = CO2) 30 24-32 [place] 678383-02-28 09:49:00 Test Item Value Reference Range Interpretation Comments Calcium Lvl (test code = Calcium Lvl) 8.0 8.5-10.5 [place] 678383-02-28 09:49:00 Test Item Value Reference Range Interpretation Comments AGAP (test code = AGAP) 5.1 10.0-20.0 [place] 678383-02-28 09:49:00 Test Item Value Reference Range Interpretation Comments eGFR (test code = eGFR) 19 [facility]BhtisuhLSJESVEUZ4656-92-06 09:49:00 Test Item Value Reference Range Interpretation Comments Glucose Lvl (test code = Glucose Lvl) 93 70-99 [place] 087233-02-28 09:49:00 Test Item Value Reference Range Interpretation Comments BUN (test code = BUN) 30 7- [place] 087233-02-28 09:49:00 Test Item Value Reference Range Interpretation Comments Creatinine Lvl (test code = Creatinine 2.50 0.50-1.40 Lvl) [facility]anoShesuufGMIYSXVAK0871-15-28 09:49:00 Test Item Value Reference Range Interpretation Comments Sodium Lvl (test code = Sodium Lvl) 138 135-145 [facility]anoRfhdiyyDNPZNHLTW9696-89-49 09:49:00 Test Item Value Reference Range Interpretation Comments Potassium Lvl (test code = Potassium 5.1 3.5-5.1 Lvl) [facility]anoTawvtjhFVHEYUBNI7458-12-30 09:49:00 Test Item Value Reference Range Interpretation Comments Chloride Lvl (test code = Chloride Lvl) 108 95-109 [facility]anoOmhrhjoKQXQFDPTM9828-33-76 09:49:00 Test Item Value Reference Range Interpretation Comments CO2 (test code = CO2) 30 24-32 [facility]anoOmzftciQESLHPYJK3026-51-68 09:49:00 Test Item Value Reference Range Interpretation Comments Calcium Lvl (test code = Calcium Lvl) 8.0 8.5-10.5 [facility]anoNszotaeQYANQRKLX9129-85-45 09:49:00 Test Item Value Reference Range Interpretation Comments AGAP (test code = AGAP) 5.1 10.0-20.0 [facility] PlanoEgdavzwYVVWNUHRC6894-12-38 09:49:00 Test Item Value Reference Range Interpretation Comments eGFR (test code = eGFR) 19 [facility] CenterWvbxaswGMCZIBSLDY7207-98-96 09:49:00 Test Item Value Reference Range Interpretation Comments Segs (test code = Segs) 49.2 45.0-75.0 [facility] CenterRqfveruSSAMLOIZUM7870-98-15 09:49:00 Test Item Value Reference Range Interpretation Comments Lymphocytes (test code = Lymphocytes) 33.0 20.0-40.0 [facility] CenterVmnrdcbLKBGVKYJEM4694-42-56 09:49:00 Test Item Value Reference Range Interpretation Comments Monocytes (test code = Monocytes) 10.5 2.0-12.0 [facility] CenterDtypaalMXDXRHNDDN2929-03-41 09:49:00 Test Item Value Reference Range Interpretation Comments Eosinophils (test code = 6.6 See_Comment [A utomated message] The Eosinophils) system which ge nerated this result tra nsmitted reference range : <=4.0. The reference r christiano was not used to int erpret this result as normal/abnormal . [place] 222913-02-28 09:49:00 Test Item Value Reference Range Interpretation Comments Basophils (test code = 0.7 See_Comment [Aut omated message] The Basophils) system which ge nerated this result tra nsmitted reference range : <=1.0. The reference r christiano was not used to int erpret this result as normal/abnormal . [facility] CenterLqyonznXHPUCATYAB3281-09-79 09:49:00 Test Item Value Reference Range Interpretation Comments Neutrophils # (test code = Neutrophils 3.0 1.5-8.1 #) [place] 222913-02-28 09:49:00 Test Item Value Reference Range Interpretation Comments Lymphocytes # (test code = Lymphocytes 2.0 1.0-5.5 #) [place] 222913-02-28 09:49:00 Test Item Value Reference Range Interpretation Comments Monocytes # (test code 0.7 See_Comment [Aut omated message] The = Monocytes #) system which generated this result tra nsmitted reference range : <=0.8. The reference r christiano was not used to int erpret this result as normal/abnormal . [facility] CenterWauptabHMUSBMYZHJ0852-79-80 09:49:00 Test Item Value Reference Range Interpretation Comments Eosinophils # (test code 0.4 See_Comment [A utomated message] The = Eosinophils #) system whic h generated this result tra nsmitted reference range : <=0.5. The reference r christiano was not used to int erpret this result as normal/abnormal . [facility] CenterYhyxiktDSADQBQOBG3846-35-17 09:49:00 Test Item Value Reference Range Interpretation Comments WBC (test code = WBC) 6.2 3.7-10.4 [place] 222913-02-28 09:49:00 Test Item Value Reference Range Interpretation Comments RBC (test code = RBC) 3.06 4.20-5.40 [place] [address]-02-28 09:49:00 Test Item Value Reference Range Interpretation Comments Hgb (test code = Hgb) 9.2 12.0-16.0 [place] [address]-02-28 09:49:00 Test Item Value Reference Range Interpretation Comments Hct (test code = Hct) 28.0 36.0-48.0 [place] 222913-02-28 09:49:00 Test Item Value Reference Range Interpretation Comments MCV (test code = MCV) 91.5 80.0-98.0 [place] 222913-02-28 09:49:00 Test Item Value Reference Range Interpretation Comments MCH (test code = MCH) 30.0 pg 27.0-31.0 [place] 222913-02-28 09:49:00 Test Item Value Reference Range Interpretation Comments MCHC (test code = MCHC) 32.7 32.0-36.0 [place] 222913-02-28 09:49:00 Test Item Value Reference Range Interpretation Comments RDW (test code = RDW) 14.1 11.5-14.5 [place] 222913-02-28 09:49:00 Test Item Value Reference Range Interpretation Comments Platelet (test code = Platelet) 136 133-450 [place] 222913-02-28 09:49:00 Test Item Value Reference Range Interpretation Comments MPV (test code = MPV) 7.7 7.4-10.4 [place] 222913-02-28 09:49:00 Test Item Value Reference Range Interpretation Comments Segs (test code = Segs) 49.2 45.0-75.0 [place] 222913-02-28 09:49:00 Test Item Value Reference Range Interpretation Comments Lymphocytes (test code = Lymphocytes) 33.0 20.0-40.0 [place] 222913-02-28 09:49:00 Test Item Value Reference Range Interpretation Comments Monocytes (test code = Monocytes) 10.5 2.0-12.0 [place] [address]-02-28 09:49:00 Test Item Value Reference Range Interpretation Comments Eosinophils (test code = 6.6 See_Comment [A utomated message] The Eosinophils) system which ge nerated this result tra nsmitted reference range : <=4.0. The reference r christiano was not used to int erpret this result as normal/abnormal . [place] 222913-02-28 09:49:00 Test Item Value Reference Range Interpretation Comments Basophils (test code = 0.7 See_Comment [Aut omated message] The Basophils) system which ge nerated this result tra nsmitted reference range : <=1.0. The reference r christiano was not used to int erpret this result as normal/abnormal . [place] 222913-02-28 09:49:00 Test Item Value Reference Range Interpretation Comments Neutrophils # (test code = Neutrophils 3.0 1.5-8.1 #) [place] 222913-02-28 09:49:00 Test Item Value Reference Range Interpretation Comments Lymphocytes # (test code = Lymphocytes 2.0 1.0-5.5 #) [place] [address]-02-28 09:49:00 Test Item Value Reference Range Interpretation Comments Monocytes # (test code 0.7 See_Comment [Aut omated message] The = Monocytes #) system which generated this result tra nsmitted reference range : <=0.8. The reference r christiano was not used to int erpret this result as normal/abnormal . [place] [address]-02-28 09:49:00 Test Item Value Reference Range Interpretation Comments Eosinophils # (test code 0.4 See_Comment [A utomated message] The = Eosinophils #) system whic h generated this result tra nsmitted reference range : <=0.5. The reference r christiano was not used to int erpret this result as normal/abnormal . [place] 222913-02-28 09:49:00 Test Item Value Reference Range Interpretation Comments WBC (test code = WBC) 6.2 3.7-10.4 [place] [address]-02-28 09:49:00 Test Item Value Reference Range Interpretation Comments RBC (test code = RBC) 3.06 4.20-5.40 [place] [address]-02-28 09:49:00 Test Item Value Reference Range Interpretation Comments Hgb (test code = Hgb) 9.2 12.0-16.0 [place] [address]-02-28 09:49:00 Test Item Value Reference Range Interpretation Comments Hct (test code = Hct) 28.0 36.0-48.0 [place] [address]-02-28 09:49:00 Test Item Value Reference Range Interpretation Comments MCV (test code = MCV) 91.5 80.0-98.0 [place] [address]-02-28 09:49:00 Test Item Value Reference Range Interpretation Comments MCH (test code = MCH) 30.0 pg 27.0-31.0 [place] [address]-02-28 09:49:00 Test Item Value Reference Range Interpretation Comments MCHC (test code = MCHC) 32.7 32.0-36.0 [place] [address]-02-28 09:49:00 Test Item Value Reference Range Interpretation Comments RDW (test code = RDW) 14.1 11.5-14.5 [place] [address]-02-28 09:49:00 Test Item Value Reference Range Interpretation Comments Platelet (test code = Platelet) 136 133-450 [place] [address]-02-28 09:49:00 Test Item Value Reference Range Interpretation Comments MPV (test code = MPV) 7.7 7.4-10.4 [place] 678383-02-28 09:49:00 Test Item Value Reference Range Interpretation Comments Glucose Lvl (test code = Glucose Lvl) 93 70-99 [place] 678383-02-28 09:49:00 Test Item Value Reference Range Interpretation Comments BUN (test code = BUN) 30 7-22 [place] 678383-02-28 09:49:00 Test Item Value Reference Range Interpretation Comments Creatinine Lvl (test code = Creatinine 2.50 0.50-1.40 Lvl) [place] 678383-02-28 09:49:00 Test Item Value Reference Range Interpretation Comments Sodium Lvl (test code = Sodium Lvl) 138 135-145 [place] 678383-02-28 09:49:00 Test Item Value Reference Range Interpretation Comments Potassium Lvl (test code = Potassium 5.1 3.5-5.1 Lvl) [place] 678383-02-28 09:49:00 Test Item Value Reference Range Interpretation Comments Chloride Lvl (test code = Chloride Lvl) 108 95-109 [place] 678383-02-28 09:49:00 Test Item Value Reference Range Interpretation Comments CO2 (test code = CO2) 30 24-32 [place] 678383-02-28 09:49:00 Test Item Value Reference Range Interpretation Comments Calcium Lvl (test code = Calcium Lvl) 8.0 8.5-10.5 [place] 678383-02-28 09:49:00 Test Item Value Reference Range Interpretation Comments AGAP (test code = AGAP) 5.1 10.0-20.0 [facility]2023-02-28 09:49:00 Test Item Value Reference Range Interpretation Comments eGFR (test code = eGFR) 19 [place] 087233-02-28 09:49:00 Test Item Value Reference Range Interpretation Comments Glucose Lvl (test code = Glucose Lvl) 93 70-99 [place] 087233-02-28 09:49:00 Test Item Value Reference Range Interpretation Comments BUN (test code = BUN) 30 7-22 [place] [address]-02-28 09:49:00 Test Item Value Reference Range Interpretation Comments Creatinine Lvl (test code = Creatinine 2.50 0.50-1.40 Lvl) [facility]anoBajfzjyJQLKEXSHJ6261-16-56 09:49:00 Test Item Value Reference Range Interpretation Comments Sodium Lvl (test code = Sodium Lvl) 138 135-145 [place] 087233-02-28 09:49:00 Test Item Value Reference Range Interpretation Comments Potassium Lvl (test code = Potassium 5.1 3.5-5.1 Lvl) [facility]anoBroakinSOJOOTREY1929-89-82 09:49:00 Test Item Value Reference Range Interpretation Comments Chloride Lvl (test code = Chloride Lvl) 108 95-109 [facility] PlanoGuqjkotARNFDPOQC5599-84-82 09:49:00 Test Item Value Reference Range Interpretation Comments CO2 (test code = CO2) 30 24-32 [place] 087233-02-28 09:49:00 Test Item Value Reference Range Interpretation Comments Calcium Lvl (test code = Calcium Lvl) 8.0 8.5-10.5 [place] 087233-02-28 09:49:00 Test Item Value Reference Range Interpretation Comments AGAP (test code = AGAP) 5.1 10.0-20.0 [place] [address]-02-28 09:49:00 Test Item Value Reference Range Interpretation Comments eGFR (test code = eGFR) 19 [place] 222913-02-28 09:49:00 Test Item Value Reference Range Interpretation Comments Segs (test code = Segs) 49.2 45.0-75.0 [place] 222913-02-28 09:49:00 Test Item Value Reference Range Interpretation Comments Lymphocytes (test code = Lymphocytes) 33.0 20.0-40.0 [place] 222913-02-28 09:49:00 Test Item Value Reference Range Interpretation Comments Monocytes (test code = Monocytes) 10.5 2.0-12.0 [place] 222913-02-28 09:49:00 Test Item Value Reference Range Interpretation Comments Eosinophils (test code = 6.6 See_Comment [A utomated message] The Eosinophils) system which ge nerated this result tra nsmitted reference range : <=4.0. The reference r christiano was not used to int erpret this result as normal/abnormal . [facility] CenterWxkzvjiZBEWVULGMN6205-54-28 09:49:00 Test Item Value Reference Range Interpretation Comments Basophils (test code = 0.7 See_Comment [Aut omated message] The Basophils) system which ge nerated this result tra nsmitted reference range : <=1.0. The reference r christiano was not used to int erpret this result as normal/abnormal . [facility] CenterGmutkalSJUIPYMDBY3049-94-93 09:49:00 Test Item Value Reference Range Interpretation Comments Neutrophils # (test code = Neutrophils 3.0 1.5-8.1 #) [facility] CenterWciirwwULWYSZOWDO8637-08-84 09:49:00 Test Item Value Reference Range Interpretation Comments Lymphocytes # (test code = Lymphocytes 2.0 1.0-5.5 #) [facility] CenterIigqegnCMFTLSBQAS4659-65-52 09:49:00 Test Item Value Reference Range Interpretation Comments Monocytes # (test code 0.7 See_Comment [Aut omated message] The = Monocytes #) system which generated this result tra nsmitted reference range : <=0.8. The reference r christiano was not used to int erpret this result as normal/abnormal . [facility] CenterFstkwvsDPGOYQHLNH8327-97-62 09:49:00 Test Item Value Reference Range Interpretation Comments Eosinophils # (test code 0.4 See_Comment [A utomated message] The = Eosinophils #) system whic h generated this result tra nsmitted reference range : <=0.5. The reference r christiano was not used to int erpret this result as normal/abnormal . [facility] CenterPvjmwnjGVCQNHQJMH0907-43-10 09:49:00 Test Item Value Reference Range Interpretation Comments WBC (test code = WBC) 6.2 3.7-10.4 [place] 222913-02-28 09:49:00 Test Item Value Reference Range Interpretation Comments RBC (test code = RBC) 3.06 4.20-5.40 [place] 222913-02-28 09:49:00 Test Item Value Reference Range Interpretation Comments Hgb (test code = Hgb) 9.2 12.0-16.0 [place] [address]-02-28 09:49:00 Test Item Value Reference Range Interpretation Comments Hct (test code = Hct) 28.0 36.0-48.0 [place] 222913-02-28 09:49:00 Test Item Value Reference Range Interpretation Comments MCV (test code = MCV) 91.5 80.0-98.0 [place] [address]-02-28 09:49:00 Test Item Value Reference Range Interpretation Comments MCH (test code = MCH) 30.0 pg 27.0-31.0 [place] [address]-02-28 09:49:00 Test Item Value Reference Range Interpretation Comments MCHC (test code = MCHC) 32.7 32.0-36.0 [place] 222913-02-28 09:49:00 Test Item Value Reference Range Interpretation Comments RDW (test code = RDW) 14.1 11.5-14.5 [place] 222913-02-28 09:49:00 Test Item Value Reference Range Interpretation Comments Platelet (test code = Platelet) 136 133-450 [place] 222913-02-28 09:49:00 Test Item Value Reference Range Interpretation Comments MPV (test code = MPV) 7.7 7.4-10.4 [place] [address]-02-28 09:49:00 Test Item Value Reference Range Interpretation Comments Segs (test code = Segs) 49.2 45.0-75.0 [place] [address]-02-28 09:49:00 Test Item Value Reference Range Interpretation Comments Lymphocytes (test code = Lymphocytes) 33.0 20.0-40.0 [place] 222913-02-28 09:49:00 Test Item Value Reference Range Interpretation Comments Monocytes (test code = Monocytes) 10.5 2.0-12.0 [place] 222913-02-28 09:49:00 Test Item Value Reference Range Interpretation Comments Eosinophils (test code = 6.6 See_Comment [A utomated message] The Eosinophils) system which ge nerated this result tra nsmitted reference range : <=4.0. The reference r christiano was not used to int erpret this result as normal/abnormal . [place] 222913-02-28 09:49:00 Test Item Value Reference Range Interpretation Comments Basophils (test code = 0.7 See_Comment [Aut omated message] The Basophils) system which ge nerated this result tra nsmitted reference range : <=1.0. The reference r christiano was not used to int erpret this result as normal/abnormal . [place] 222913-02-28 09:49:00 Test Item Value Reference Range Interpretation Comments Neutrophils # (test code = Neutrophils 3.0 1.5-8.1 #) [place] 222913-02-28 09:49:00 Test Item Value Reference Range Interpretation Comments Lymphocytes # (test code = Lymphocytes 2.0 1.0-5.5 #) [place] 222913-02-28 09:49:00 Test Item Value Reference Range Interpretation Comments Monocytes # (test code 0.7 See_Comment [Aut omated message] The = Monocytes #) system which generated this result tra nsmitted reference range : <=0.8. The reference r christiano was not used to int erpret this result as normal/abnormal . [facility]00 Test Item Value Reference Range Interpretation Comments Eosinophils # (test code 0.4 See_Comment [A utomated message] The = Eosinophils #) system whic h generated this result tra nsmitted reference range : <=0.5. The reference r christiano was not used to int erpret this result as normal/abnormal . [facility]HoxgvqyMZGCJBFYQU5379-91-00 09:49:00 Test Item Value Reference Range Interpretation Comments WBC (test code = WBC) 6.2 3.7-10.4 [place] 222913-02-28 09:49:00 Test Item Value Reference Range Interpretation Comments RBC (test code = RBC) 3.06 4.20-5.40 [place] 222913-02-28 09:49:00 Test Item Value Reference Range Interpretation Comments Hgb (test code = Hgb) 9.2 12.0-16.0 [place] [address]489-02-28 09:49:00 Test Item Value Reference Range Interpretation Comments Hct (test code = Hct) 28.0 36.0-48.0 [place] 08489-02-28 09:49:00 Test Item Value Reference Range Interpretation Comments MCV (test code = MCV) 91.5 80.0-98.0 [place] 08[address]-02-28 09:49:00 Test Item Value Reference Range Interpretation Comments MCH (test code = MCH) 30.0 pg 27.0-31.0 [place] [address]-02-28 09:49:00 Test Item Value Reference Range Interpretation Comments MCHC (test code = MCHC) 32.7 32.0-36.0 [place] 08489-02-28 09:49:00 Test Item Value Reference Range Interpretation Comments RDW (test code = RDW) 14.1 11.5-14.5 [place] 08[address]-02-28 09:49:00 Test Item Value Reference Range Interpretation Comments Platelet (test code = Platelet) 136 133-450 [place] 08489-02-28 09:49:00 Test Item Value Reference Range Interpretation Comments MPV (test code = MPV) 7.7 7.4-10.4 [place] 678383-02-28 09:49:00 Test Item Value Reference Range Interpretation Comments Glucose Lvl (test code = Glucose Lvl) 93 70-99 [place] 678383-02-28 09:49:00 Test Item Value Reference Range Interpretation Comments BUN (test code = BUN) 30 7-22 [place] 678383-02-28 09:49:00 Test Item Value Reference Range Interpretation Comments Creatinine Lvl (test code = Creatinine 2.50 0.50-1.40 Lvl) [place] 678383-02-28 09:49:00 Test Item Value Reference Range Interpretation Comments Sodium Lvl (test code = Sodium Lvl) 138 135-145 [place] 678383-02-28 09:49:00 Test Item Value Reference Range Interpretation Comments Potassium Lvl (test code = Potassium 5.1 3.5-5.1 Lvl) [place] 678383-02-28 09:49:00 Test Item Value Reference Range Interpretation Comments Chloride Lvl (test code = Chloride Lvl) 108 95-109 [place] 678383-02-28 09:49:00 Test Item Value Reference Range Interpretation Comments CO2 (test code = CO2) 30 24-32 [place] 678383-02-28 09:49:00 Test Item Value Reference Range Interpretation Comments Calcium Lvl (test code = Calcium Lvl) 8.0 8.5-10.5 [place] 678383-02-28 09:49:00 Test Item Value Reference Range Interpretation Comments AGAP (test code = AGAP) 5.1 10.0-20.0 [place] 678383-02-28 09:49:00 Test Item Value Reference Range Interpretation Comments eGFR (test code = eGFR) 19 [facility]EvknfliGWIRYDLGN2687-33-97 09:49:00 Test Item Value Reference Range Interpretation Comments Glucose Lvl (test code = Glucose Lvl) 93 70-99 [place] 087233-02-28 09:49:00 Test Item Value Reference Range Interpretation Comments BUN (test code = BUN) 30 7-22 [place] 087233-02-28 09:49:00 Test Item Value Reference Range Interpretation Comments Creatinine Lvl (test code = Creatinine 2.50 0.50-1.40 Lvl) [facility]anoHnovenlETDKGVMLV4683-42-91 09:49:00 Test Item Value Reference Range Interpretation Comments Sodium Lvl (test code = Sodium Lvl) 138 135-145 [place] 85182023-02-27 14:44:19 Test Item Value Reference Range Interpretation [...] Additional severe spinal canal narrowing at C6-7. [facility] CenterAfgpghmGASEHH1026-72-18 14:44:19 Test Item Value Reference Range Interpretation [...] Additional severe spinal canal narrowing at C6-7. [facility] FallsIvhmtijNTMOTU7522-74-53 14:44:19 Test Item Value Reference Range Interpretation [...] Additional severe spinal canal narrowing at C6-7. [facility] CenterNqktuevQJZUDT6084-99-78 14:44:19 Test Item Value Reference Range Interpretation [...] Additional severe spinal canal narrowing at C6-7. [facility] 14:44:19 Test Item Value Reference Range Interpretation [...] Additional severe spinal canal narrowing at C6-7. [facility] CenterVorszqpHRCFXT8751-67-62 14:44:19 Test Item Value Reference Range Interpretation [...] Additional severe spinal canal narrowing at C6-7. [facility] CenterPfklmcuILXTCRHGRP7357-10-88 10:40:00 Test Item Value Reference Range Interpretation Comments Coronavirus (COVID-19) Not Detected (11/27/22 JONATHAN (test code = 4:40 AM) Coronavirus (COVID-19) JONATHAN) [facility] CenterMoybdraNERASQLNXI1697-73-39 10:40:00 Test Item Value Reference Range Interpretation Comments Coronavirus (COVID-19) Not Detected (11/27/22 JONATHAN (test code = 4:40 AM) Coronavirus (COVID-19) JONATHAN) [place] [address]-02-27 10:40:00 Test Item Value Reference Range Interpretation Comments Coronavirus (COVID-19) Not Detected (11/27/22 JONATHAN (test code = 4:40 AM) Coronavirus (COVID-19) JONATHAN) [place] [address]-02-27 10:40:00 Test Item Value Reference Range Interpretation Comments Coronavirus (COVID-19) Not Detected (11/27/22 JONATHAN (test code = 4:40 AM) Coronavirus (COVID-19) JONATHAN) [place] [address]-02-27 10:40:00 Test Item Value Reference Range Interpretation Comments Coronavirus (COVID-19) Not Detected (11/27/22 JONATHAN (test code = 4:40 AM) Coronavirus (COVID-19) JONATHAN) [place] [address]-02-27 10:40:00 Test Item Value Reference Range Interpretation Comments Coronavirus (COVID-19) Not Detected (11/27/22 JONATHAN (test code = 4:40 AM) Coronavirus (COVID-19) JONATHAN) [place] [address]-02-27 10:40:00 Test Item Value Reference Range Interpretation Comments Coronavirus (COVID-19) Not Detected (11/27/22 JONATHAN (test code = 4:40 AM) Coronavirus (COVID-19) JONATHAN) [place] [address]-02-27 10:40:00 Test Item Value Reference Range Interpretation Comments Coronavirus (COVID-19) Not Detected (11/27/22 JONATHAN (test code = 4:40 AM) Coronavirus (COVID-19) JONATHAN) [place] [address]-02-27 10:40:00 Test Item Value Reference Range Interpretation Comments Coronavirus (COVID-19) Not Detected (11/27/22 JONATHAN (test code = 4:40 AM) Coronavirus (COVID-19) JONATHAN) [place] [address]-02-27 10:40:00 Test Item Value Reference Range Interpretation Comments Coronavirus (COVID-19) Not Detected (11/27/22 JONATHAN (test code = 4:40 AM) Coronavirus (COVID-19) JONATHAN) [facility]HuknmsuPXYCCVBPRZ7678-52-29 10:40:00 Test Item Value Reference Range Interpretation Comments Coronavirus (COVID-19) Not Detected (11/27/22 JONATHAN (test code = 4:40 AM) Coronavirus (COVID-19) JONATHAN) [facility] CenterFanfjykBPPYLBTMTV4435-84-54 10:40:00 Test Item Value Reference Range Interpretation Comments Coronavirus (COVID-19) Not Detected (11/27/22 JONATHAN (test code = 4:40 AM) Coronavirus (COVID-19) JONATHAN) [place] 85182023-02-27 07:58:03 Test Item Value Reference Range Interpretation [...] at 11/27/2022 2:31 by Urbano Ashton MD [facility] CenterQwzqhxcMGPNHU4466-92-53 07:58:03 Test Item Value Reference Range Interpretation [...] at 11/27/2022 2:31 by Urbano Ashton MD [facility] CenterZqdqqmeOLANVD1305-17-52 07:58:03 Test Item Value Reference Range Interpretation [...] at 11/27/2022 2:31 by [facility]rbano Ashton [facility]ZyuvzxrAEYEPY7880-24-46 07:58:03 Test Item Value Reference Range Interpretation [...] at 11/27/2022 2:31 by Urbano Ashton [facility] HospitalZohpvdeHFQHZL0089-74-99 07:58:03 Test Item Value Reference Range Interpretation [...] at 11/27/2022 2:31 by Urbano Ashton [facility] CenterBpvhpirQRZSDS8147-84-07 07:58:03 Test Item Value Reference Range Interpretation [...] at 11/27/2022 2:31 by Urbano Ashton MD [facility] 1 [id number] 07:22:00 Test Item Value Reference Range Interpretation Comments ABO/Rh (test code = ABO/Rh) O POS [facility] 1 [id number] 07:22:00 Test Item Value Reference Range Interpretation Comments Antibody Scrn (test Negative (11/27/22 1:22 code = Antibody Scrn) AM) [facility] 1 [id number] 07:22:00 Test Item Value Reference Range Interpretation Comments ABO/Rh (test code = ABO/Rh) O POS [facility] 1 [id number] 07:22:00 Test Item Value Reference Range Interpretation Comments Antibody Scrn (test Negative (11/27/22 1:22 code = Antibody Scrn) AM) [facility] 1 [id number] 07:22:00 Test Item Value Reference Range Interpretation Comments ABO/Rh (test code = ABO/Rh) O POS [facility] 1 [id number] 07:22:00 Test Item Value Reference Range Interpretation Comments Antibody Scrn (test Negative (11/27/22 1:22 code = Antibody Scrn) AM) [facility] 1 [id number] 07:22:00 Test Item Value Reference Range Interpretation Comments ABO/Rh (test code = ABO/Rh) O [facility] 1 [id number] 07:22:00 Test Item Value Reference Range Interpretation Comments Antibody Scrn (test Negative (11/27/22 1:22 code = Antibody Scrn) AM) [facility] 1 [id number] 07:22:00 Test Item Value Reference Range Interpretation Comments ABO/Rh (test code = ABO/Rh) O [facility] 1 [id number] 07:22:00 Test Item Value Reference Range Interpretation Comments Antibody Scrn (test Negative (11/27/22 1:22 code = Antibody Scrn) AM) [facility] 1 [id number] 07:22:00 Test Item Value Reference Range Interpretation Comments ABO/Rh (test code = ABO/Rh) O [facility] 1 [id number] 07:22:00 Test Item Value Reference Range Interpretation Comments Antibody Scrn (test Negative (11/27/22 1:22 code = Antibody Scrn) AM) [facility] 1 [id number] 07:22:00 Test Item Value Reference Range Interpretation Comments ABO/Rh (test code = ABO/Rh) O [facility] [id number] 07:22:00 Test Item Value Reference Range Interpretation Comments Antibody Scrn (test Negative (11/27/22 1:22 code = Antibody Scrn) AM) [facility] [id number] 07:22:00 Test Item Value Reference Range Interpretation Comments ABO/Rh (test code = ABO/Rh) O [facility] [id number] 07:22:00 Test Item Value Reference Range Interpretation Comments Antibody Scrn (test Negative (11/27/22 1:22 code = Antibody Scrn) AM) [facility] [id number] 07:22:00 Test Item Value Reference Range Interpretation Comments ABO/Rh (test code = ABO/Rh) O [facility] [id number] 07:22:00 Test Item Value Reference Range Interpretation Comments Antibody Scrn (test Negative (11/27/22 1:22 code = Antibody Scrn) AM) [facility] [id number] 07:22:00 Test Item Value Reference Range Interpretation Comments ABO/Rh (test code = ABO/Rh) O [facility] [id number] 07:22:00 Test Item Value Reference Range Interpretation Comments Antibody Scrn (test Negative (11/27/22 1:22 code = Antibody Scrn) AM) [facility] [id number] 07:22:00 Test Item Value Reference Range Interpretation Comments ABO/Rh (test code = ABO/Rh) O [facility] [id number] 07:22:00 Test Item Value Reference Range Interpretation Comments Antibody Scrn (test Negative (11/27/22 1:22 code = Antibody Scrn) AM) [facility] [id number] 07:22:00 Test Item Value Reference Range Interpretation Comments ABO/Rh (test code = ABO/Rh) O [facility] [id number] 07:22:00 Test Item Value Reference Range Interpretation Comments Antibody Scrn (test Negative (11/27/22 1:22 code = Antibody Scrn) AM) [place] 85182023-02-27 06:55:28 Test Item Value Reference Range Interpretation Comments RADRPT (test code EXAM: CT CERVICAL SPINE = RADRPT) WITHOUT CONTRASTDATE: 11/27/2022 0:49INDICATION: Status post fall, pain after trauma. Following trauma transfer for higher level of care request for outside film interpretation CT cervical spine without contrast performed 11/26/2022 [facility] [address] [facility] None[place]TECHNIQUE: Volumetric CT of the cervical spine is acquired without contrast. Axial, coronal and sagittal images are provided. IV contrast: None.DLP: Refer to CT protocol formUT SECTION: ERFINDINGS: The spine is imaged from the skull base to the level of T2/T3.White Spooler: Noncontributory.Bones:There is generalized decreased bone mineral density.There [...] calcifications are present.6. Agree with outside report. [facility] FallsHolqgfsZYNERQ3305-06-42 06:55:28 Test Item Value Reference Range Interpretation Comments RADRPT (test code EXAM: CT CERVICAL SPINE = RADRPT) WITHOUT CONTRASTDATE: 11/27/2022 0:49INDICATION: Status post fall, pain after trauma. Following trauma transfer for higher level of care request for outside film interpretation CT cervical spine without contrast performed 11/26/2022 at [address] [facility] None.TECHNIQUE: Volumetric CT of the cervical spine is acquired without contrast. Axial, coronal and sagittal images are provided. IV contrast: None.DLP: Refer to CT protocol formUT SECTION: ERFINDINGS: The spine is imaged from the skull base to the level of T2/T3.White Spooler: Noncontributory.Bones:There is generalized decreased bone mineral density.There [...] calcifications are present.6. Agree with outside report. [facility] FallsEarrtftMLPABM3632-72-36 06:55:28 Test Item Value Reference Range Interpretation Comments RADRPT (test code EXAM: CT CERVICAL SPINE = RADRPT) WITHOUT CONTRASTDATE: 11/27/2022 0:49INDICATION: Status post fall, pain after trauma. Following trauma transfer for higher level of care request for outside film interpretation CT cervical spine without contrast performed 11/26/2022 at [address] [facility] [place] None.TECHNIQUE: Volumetric CT of the cervical spine is acquired without contrast. Axial, coronal and sagittal images are provided. IV contrast: None.DLP: Refer to CT protocol formUT SECTION: ERFINDINGS: The spine is imaged from the skull base to the level of T2/T3.White Spooler: Noncontributory.Bones:There is generalized decreased bone mineral density.There [...] calcifications are present.6. Agree with outside report. [facility] GiuyucjGGSRHO8854-92-29 06:55:28 Test Item Value Reference Range Interpretation Comments RADRPT (test code EXAM: CT CERVICAL SPINE = RADRPT) WITHOUT CONTRASTDATE: 11/27/2022 0:49INDICATION: Status post fall, pain after trauma. Following trauma transfer for higher level of care request for outside film interpretation CT cervical spine without contrast performed 11/26/2022 at [address] [facility] None.TECHNIQUE: Volumetric CT of the cervical spine is acquired without contrast. Axial, coronal and sagittal images are provided. IV contrast: None.DLP: Refer to CT protocol formUT SECTION: ERFINDINGS: The spine is imaged from the skull base to the level of T2/T3.White Spooler: Noncontributory.Bones:There is generalized decreased bone mineral density.There [...] calcifications are present.6. Agree with outside report. [facility] [id number] 06:55:28 Test Item Value Reference Range Interpretation Comments RADRPT (test code EXAM: CT CERVICAL SPINE = RADRPT) WITHOUT CONTRASTDATE: 11/27/2022 0:49INDICATION: Status post fall, pain after trauma. Following trauma transfer for higher level of care request for outside film interpretation CT cervical spine without contrast performed 11/26/2022 at [address] [facility] None.TECHNIQUE: Volumetric CT of the cervical spine is acquired without contrast. Axial, coronal and sagittal images are provided. IV contrast: None.DLP: Refer to CT protocol formUT SECTION: ERFINDINGS: The spine is imaged from the skull base to the level of T2/T3.White Spooler: Noncontributory.Bones:There is generalized decreased bone mineral density.There [...] calcifications are present.6. Agree with outside report. [facility] FallsGxitepaYUKXHF9229-13-14 06:55:28 Test Item Value Reference Range Interpretation Comments RADRPT (test code EXAM: CT CERVICAL SPINE = RADRPT) WITHOUT CONTRASTDATE: 11/27/2022 0:49INDICATION: Status post fall, pain after trauma. Following trauma transfer for higher level of care request for outside film interpretation CT cervical spine without contrast performed 11/26/2022 at [address] [facility]: None.TECHNIQUE: Volumetric CT of the cervical spine is acquired without contrast. Axial, coronal and sagittal images are provided. IV contrast: None.DLP: Refer to CT protocol formUT SECTION: ERFINDINGS: The spine is imaged from the skull base to the level of T2/T3.White Spooler: Noncontributory.Bones:There is generalized decreased bone mineral density.There [...] calcifications are present.6. Agree with outside report. [facility] FallsOrbFlex [id number] 06:27:00 Test Item Value Reference Range Interpretation Comments Glucose Lvl (test code = Glucose Lvl) 85 70-99 [facility] FallsOr[facility] [id number] 06:27:00 Test Item Value Reference Range Interpretation Comments BUN (test code = BUN) 28 7-22 [facility] FallsOr[facility] [id number] 06:27:00 Test Item Value Reference Range Interpretation Comments Creatinine Lvl (test code = Creatinine 2.19 0.50-1.40 Lvl) [place] 678383-02-27 06:27:00 Test Item Value Reference Range Interpretation Comments Sodium Lvl (test code = Sodium Lvl) 143 135-145 [place] 678383-02-27 06:27:00 Test Item Value Reference Range Interpretation Comments Potassium Lvl (test code = Potassium 4.3 3.5-5.1 Lvl) [place] 678383-02-27 06:27:00 Test Item Value Reference Range Interpretation Comments Chloride Lvl (test code = Chloride Lvl) 110 95-109 [place] 678383-02-27 06:27:00 Test Item Value Reference Range Interpretation Comments CO2 (test code = CO2) 24-32 [place] 678383-02-27 06:27:00 Test Item Value Reference Range Interpretation Comments Calcium Lvl (test code = Calcium Lvl) 8.1 8.5-10.5 [place] 678383-02-27 06:27:00 Test Item Value Reference Range Interpretation Comments AGAP (test code = AGAP) 10.3 10.0-20.0 [place] 678383-02-27 06:27:00 Test Item Value Reference Range Interpretation Comments eGFR (test code = eGFR) 22 [place] 678383-02-27 06:27:00 Test Item Value Reference Range Interpretation Comments Total Protein (test code = Total 6.6 6.4-8.4 Protein) [place] 678383-02-27 06:27:00 Test Item Value Reference Range Interpretation Comments Albumin Lvl (test code = Albumin Lvl) 3.0 3.5-5.0 [place] 678383-02-27 06:27:00 Test Item Value Reference Range Interpretation Comments Globulin (test code = Globulin) 3.6 2.7-4.2 [place] 678383-02-27 06:27:00 Test Item Value Reference Range Interpretation Comments A/G Ratio (test code = A/G Ratio) 0.8 1 0.7-1.6 [place] 678383-02-27 06:27:00 Test Item Value Reference Range Interpretation Comments ALANINE AMINOTRANSFERASE 21 See_Comment [A utomated message] (test code = ALANINE The sys tem which AMINOTRANSFERASE) generated this result transmitted ref erence range: <=65. Th e reference range was not used to int erpret this result as normal/abnormal . [facility] Falls[facility] [id number] 06:27:00 Test Item Value Reference Range Interpretation Comments AST (test code = AST) 17 See_Comment [Auto mated message] The system which ge nerated this result transmit sheba reference range : <=37. The reference range was not used to interpr et this result as edy l/abnormal. [facility] Falls[facility] [id number] 06:27:00 Test Item Value Reference Range Interpretation Comments Alk Phos (test code = Alk Phos) 84 39-136 [facility] [id number] 06:27:00 Test Item Value Reference Range Interpretation Comments Bili Total (test code = Bili Total) 0.3 0.2-1.3 [facility] Falls[facility] [id number] 06:27:00 Test Item Value Reference Range Interpretation Comments Bili Direct (test code no gt See_Comment [Aut omated message] The = Bili Direct) system which generated this result tra nsmitted reference range : <=0.3. The reference r christiano was not used to int erpret this result as edy l/abnormal. [facility] Falls[facility] [id number] 06:27:00 Test Item Value Reference Range Interpretation Comments Bili Indirect Unable to See_Comment [Automated (test code = Bili Calculate message] T he system Indirect) which generated this result transmitted reference range : <=1.0. The reference range was not used to interpret this result as normal/abnormal . [facility] Falls[facility] [id number] 06:27:00 Test Item Value Reference Range Interpretation Comments Lactic Acid Lvl (test code = Lactic 0.5 0.5-2.2 Acid Lvl) [place] [address]57-02-27 06:27:00 Test Item Value Reference Range Interpretation Comments Total Protein (test code = Total 6.6 6.4-8.4 Protein) [place] 087233-02-27 06:27:00 Test Item Value Reference Range Interpretation Comments Albumin Lvl (test code = Albumin Lvl) 3.0 3.5-5.0 [facility] CenterGjobpzgZGOCRPECX5441-71-44 06:27:00 Test Item Value Reference Range Interpretation Comments Globulin (test code = Globulin) 3.6 2.7-4.2 [facility]anoIjzgeciIYRPJNBSU1874-16-03 06:27:00 Test Item Value Reference Range Interpretation Comments A/G Ratio (test code = A/G Ratio) 0.8 1 0.7-1.6 [facility] PlanoGcfgjweMSMIAPWWJ3318-19-96 06:27:00 Test Item Value Reference Range Interpretation Comments ALANINE AMINOTRANSFERASE 21 See_Comment [A utomated message] (test code = ALANINE The sys tem which AMINOTRANSFERASE) generated this result transmitted ref erence range: <=65. Th e reference range was not used to int erpret this result as normal/abnormal . [facility]anoWgvisfmCYQXLIPHU3888-31-82 06:27:00 Test Item Value Reference Range Interpretation Comments AST (test code = AST) 17 See_Comment [Auto mated message] The system which ge nerated this result transmit sheba reference range : <=37. The reference range was not used to interpr et this result as edy l/abnormal. [facility] PlanoRmhhjmlFPZTYXSQF7804-23-45 06:27:00 Test Item Value Reference Range Interpretation Comments Alk Phos (test code = Alk Phos) 84 39-136 [facility] PlanoVrhvcxvDEJPENNRY2868-70-18 06:27:00 Test Item Value Reference Range Interpretation Comments Bili Total (test code = Bili Total) 0.3 0.2-1.3 [facility]anoMhxgxpkDFEJJSOOL6961-47-98 06:27:00 Test Item Value Reference Range Interpretation Comments Bili Direct (test code no gt See_Comment [Aut omated message] The = Bili Direct) system which generated this result tra nsmitted reference range : <=0.3. The reference r christiano was not used to int erpret this result as edy l/abnormal. [facility] CenterWivjmieVCNGYQWGR6458-72-42 06:27:00 Test Item Value Reference Range Interpretation Comments Bili Indirect Unable to See_Comment [Automated (test code = Bili Calculate message] T he system Indirect) which generated this result transmitted reference range : <=1.0. The reference range was not used to interpret this result as normal/abnormal . [facility] CenterDsqssuiHIDDLAGVL3879-67-40 06:27:00 Test Item Value Reference Range Interpretation Comments pH Justin (test code = pH Justin) 7.29 1 7.28-7.42 [place] 087233-02-27 06:27:00 Test Item Value Reference Range Interpretation Comments pCO2 Justin (test code = pCO2 Justin) 65 38-52 [facility] PlanoNxyrwdjPDYZLPGRF2762-53-38 06:27:00 Test Item Value Reference Range Interpretation Comments pO2 Justin (test code = pO2 Justin) 37 20-49 [facility]anoMklzcnnDUGCTANIH2079-33-74 06:27:00 Test Item Value Reference Range Interpretation Comments HCO3 Justin (test code = HCO3 Justin) 31 22-26 [facility] PlanoZyfvgbvMXQWRFUOI7243-00-79 06:27:00 Test Item Value Reference Range Interpretation Comments BE Justin (test code = BE Justin) 3 -2-2 [facility] PlanoSdtjyiaCPHMRMVGV4011-60-22 06:27:00 Test Item Value Reference Range Interpretation Comments O2 Sat Justin (calc) (test code = O2 Sat 63.0 40.0-70.0 Justin (calc)) [facility] PlanoHdjkjkkAPUKVSDCR4250-06-69 06:27:00 Test Item Value Reference Range Interpretation Comments Temp Justin (test code = Temp Justin) 37.0 [facility] PlanoEipgjdqTSLLOIQYH3465-36-98 06:27:00 Test Item Value Reference Range Interpretation Comments Lactic Acid Lvl (test code = Lactic 0.5 0.5-2.2 Acid Lvl) [facility]anoNwyjwrbVSJIAICCZ7414-22-40 06:27:00 Test Item Value Reference Range Interpretation Comments TSH (test code = TSH) 0.403 0.360-3.740 [facility] CenterToqcwrnRJFVHYVTII4940-35-33 06:27:00 Test Item Value Reference Range Interpretation Comments WBC X 10x3 (test code = WBC X 10x3) 5.9 3.7-10.4 [facility] CenterRjbuuqfMPBEOESQNU9600-12-07 06:27:00 Test Item Value Reference Range Interpretation Comments RBC X 10x6 (test code = RBC X 10x6) 3.67 4.20-5.40 [facility] CenterSxkeoeuIYVVQDSYBQ2791-68-09 06:27:00 Test Item Value Reference Range Interpretation Comments Hgb (test code = Hgb) 10.7 12.0-16.0 [facility] CenterIbhlkjkECXMJAVCWN6321-61-69 06:27:00 Test Item Value Reference Range Interpretation Comments Hct (test code = Hct) 33.5 36.0-48.0 [place] 222913-02-27 06:27:00 Test Item Value Reference Range Interpretation Comments MCV (test code = MCV) 91.4 80.0-98.0 [place] 222913-02-27 06:27:00 Test Item Value Reference Range Interpretation Comments MCH (test code = MCH) 29.3 pg 27.0-31.0 [place] 222913-02-27 06:27:00 Test Item Value Reference Range Interpretation Comments MCHC (test code = MCHC) 32.0 32.0-36.0 [place] 222913-02-27 06:27:00 Test Item Value Reference Range Interpretation Comments RDW (test code = RDW) 13.7 11.5-14.5 [place] 222913-02-27 06:27:00 Test Item Value Reference Range Interpretation Comments Platelet (test code = Platelet) 139 133-450 [place] 222913-02-27 06:27:00 Test Item Value Reference Range Interpretation Comments MPV (test code = MPV) 7.5 7.4-10.4 [place] 222913-02-27 06:27:00 Test Item Value Reference Range Interpretation Comments ACT (TEG) Rapid (test code = ACT (TEG) 121 s 86-118 Rapid) [place] 222913-02-27 06:27:00 Test Item Value Reference Range Interpretation Comments Split Point Rapid (test code = Split 0.6 min Point Rapid) [place] 222913-02-27 06:27:00 Test Item Value Reference Range Interpretation Comments R-time Rapid (test code = R-time 0.8 min 0.4-0.7 Rapid) [place] 222913-02-27 06:27:00 Test Item Value Reference Range Interpretation Comments K-time Rapid (test code = K-time 0.8 min 0.6-2.3 Rapid) [place] [address]-02-27 06:27:00 Test Item Value Reference Range Interpretation Comments Angle Rapid (test code = Angle 79 degrees 64-80 Rapid) [place] 222913-02-27 06:27:00 Test Item Value Reference Range Interpretation Comments Max Amplitude Rapid (test code = Max 71 mm 52-71 Amplitude Rapid) [place] 222913-02-27 06:27:00 Test Item Value Reference Range Interpretation Comments G-value Rapid (test code = G-value 12.1 5.0-11.6 Rapid) [facility] CenterMjesgivKDWPVFVGBQ3099-80-11 06:27:00 Test Item Value Reference Range Interpretation Comments Estimated % Lysis Rapid 0.0 See_Comment [Au tomated message] The (test code = Estimated syste m which generated % Lysis Rapid) this result t ransmitted reference range : <=7.5. The reference r christiano was not used to int erpret this result as normal/abnormal . [facility] CenterEffisdbNOVLADOQIS0449-16-84 06:27:00 Test Item Value Reference Range Interpretation Comments RBC Morph (test code = Normal (11/27/22 12:27 RBC Morph) AM) [facility] CenterOsljzkrXERUMZORCQ7719-63-75 06:27:00 Test Item Value Reference Range Interpretation Comments Plt Morph (test code = Normal (11/27/22 12:27 Plt Morph) AM) [facility] CenterChgqcovWIMCXHTNGP1173-70-15 06:27:00 Test Item Value Reference Range Interpretation Comments Segs (test code = Segs) 60.1 45.0-75.0 [facility] CenterAgslvavJGOTESWAQJ9690-69-78 06:27:00 Test Item Value Reference Range Interpretation Comments Lymphocytes (test code = Lymphocytes) 23.9 20.0-40.0 [facility] CenterBghcvkyCXNAEEUNVY6526-82-01 06:27:00 Test Item Value Reference Range Interpretation Comments Monocytes (test code = Monocytes) 9.6 2.0-12.0 [facility] CenterVqpltptAGWJEUJPYZ6603-43-48 06:27:00 Test Item Value Reference Range Interpretation Comments Eosinophils (test code = 5.2 See_Comment [A utomated message] The Eosinophils) system which ge nerated this result tra nsmitted reference range : <=4.0. The reference r christiano was not used to int erpret this result as normal/abnormal . [facility] CenterUibonbnYAGWUPLDEK6448-07-84 06:27:00 Test Item Value Reference Range Interpretation Comments Basophils (test code = 1.2 See_Comment [Aut omated message] The Basophils) system which ge nerated this result tra nsmitted reference range : <=1.0. The reference r christiano was not used to int erpret this result as normal/abnormal . [place] 222913-02-27 06:27:00 Test Item Value Reference Range Interpretation Comments Neutrophils # (test code = Neutrophils 3.5 1.5-8.1 #) [facility] CenterYlwphkaFNLZJVAALV2278-05-10 06:27:00 Test Item Value Reference Range Interpretation Comments Lymphocytes # (test code = Lymphocytes 1.4 1.0-5.5 #) [facility] CenterIfcxjtqSTNONZAGPX6677-89-84 06:27:00 Test Item Value Reference Range Interpretation Comments Monocytes # (test code 0.6 See_Comment [Aut omated message] The = Monocytes #) system which generated this result tra nsmitted reference range : <=0.8. The reference r christiano was not used to int erpret this result as normal/abnormal . [place] 222913-02-27 06:27:00 Test Item Value Reference Range Interpretation Comments Eosinophils # (test code 0.3 See_Comment [A utomated message] The = Eosinophils #) system whic h generated this result tra nsmitted reference range : <=0.5. The reference r christiano was not used to int erpret this result as normal/abnormal . [facility] CenterZyygoveQYWXNGMNDG0689-72-92 06:27:00 Test Item Value Reference Range Interpretation Comments Basophils # (test code 0.1 See_Comment [Aut omated message] The = Basophils #) system which generated this result tra nsmitted reference range : <=0.2. The reference r christiano was not used to int erpret this result as normal/abnormal . [place] 222913-02-27 06:27:00 Test Item Value Reference Range Interpretation Comments ACT (TEG) Rapid (test code = ACT (TEG) 121 s 86-118 Rapid) [place] 222913-02-27 06:27:00 Test Item Value Reference Range Interpretation Comments Split Point Rapid (test code = Split 0.6 min Point Rapid) [place] [address]-02-27 06:27:00 Test Item Value Reference Range Interpretation Comments R-time Rapid (test code = R-time 0.8 min 0.4-0.7 Rapid) [place] [address]-02-27 06:27:00 Test Item Value Reference Range Interpretation Comments K-time Rapid (test code = K-time 0.8 min 0.6-2.3 Rapid) [place] 222913-02-27 06:27:00 Test Item Value Reference Range Interpretation Comments Angle Rapid (test code = Angle 79 degrees 64-80 Rapid) [facility] CenterVrwurxhZCNCPTWVNF9680-54-43 06:27:00 Test Item Value Reference Range Interpretation Comments Max Amplitude Rapid (test code = Max 71 mm 52-71 Amplitude Rapid) [place] [address]-02-27 06:27:00 Test Item Value Reference Range Interpretation Comments G-value Rapid (test code = G-value 12.1 5.0-11.6 Rapid) [place] 222913-02-27 06:27:00 Test Item Value Reference Range Interpretation Comments Estimated % Lysis Rapid 0.0 See_Comment [Au tomated message] The (test code = Estimated syste m which generated % Lysis Rapid) this result t ransmitted reference range : <=7.5. The reference r christiano was not used to int erpret this result as normal/abnormal . [place] 222913-02-27 06:27:00 Test Item Value Reference Range Interpretation Comments RBC Morph (test code = Normal (11/27/22 12:27 RBC Morph) AM) [facility] CenterIavzbzlOSUODASUSD7648-79-56 06:27:00 Test Item Value Reference Range Interpretation Comments Plt Morph (test code = Normal (11/27/22 12:27 Plt Morph) AM) [place] 222913-02-27 06:27:00 Test Item Value Reference Range Interpretation Comments Basophils # (test code 0.1 See_Comment [Aut omated message] The = Basophils #) system which generated this result tra nsmitted reference range : <=0.2. The reference r christiano was not used to int erpret this result as normal/abnormal . [facility] FallsOrbFlex NJQME4467-55-07 06:27:00 Test Item Value Reference Range Interpretation Comments Glucose Lvl (test code = Glucose Lvl) 85 70-99 [facility] CenterPower [facility] GMSTN9827-48-91 06:27:00 Test Item Value Reference Range Interpretation Comments BUN (test code = BUN) 28 7-22 [place] 678383-02-27 06:27:00 Test Item Value Reference Range Interpretation Comments Creatinine Lvl (test code = Creatinine 2.19 0.50-1.40 Lvl) [place] 678383-02-27 06:27:00 Test Item Value Reference Range Interpretation Comments Sodium Lvl (test code = Sodium Lvl) 143 135-145 [place] 678383-02-27 06:27:00 Test Item Value Reference Range Interpretation Comments Potassium Lvl (test code = Potassium 4.3 3.5-5.1 Lvl) [place] 678383-02-27 06:27:00 Test Item Value Reference Range Interpretation Comments Chloride Lvl (test code = Chloride Lvl) 110 95-109 [place] 678383-02-27 06:27:00 Test Item Value Reference Range Interpretation Comments CO2 (test code = CO2) 27 24-32 [place] 678383-02-27 06:27:00 Test Item Value Reference Range Interpretation Comments Calcium Lvl (test code = Calcium Lvl) 8.1 8.5-10.5 [place] 678383-02-27 06:27:00 Test Item Value Reference Range Interpretation Comments AGAP (test code = AGAP) 10.3 10.0-20.0 [place] 678383-02-27 06:27:00 Test Item Value Reference Range Interpretation Comments eGFR (test code = eGFR) 22 [place] 678383-02-27 06:27:00 Test Item Value Reference Range Interpretation Comments Total Protein (test code = Total 6.6 6.4-8.4 Protein) [place] 678383-02-27 06:27:00 Test Item Value Reference Range Interpretation Comments Albumin Lvl (test code = Albumin Lvl) 3.0 3.5-5.0 [place] 678383-02-27 06:27:00 Test Item Value Reference Range Interpretation Comments Globulin (test code = Globulin) 3.6 2.7-4.2 [place] 678383-02-27 06:27:00 Test Item Value Reference Range Interpretation Comments A/G Ratio (test code = A/G Ratio) 0.8 1 0.7-1.6 [place] 678383-02-27 06:27:00 Test Item Value Reference Range Interpretation Comments ALANINE AMINOTRANSFERASE 21 See_Comment [A utomated message] (test code = ALANINE The sys tem which AMINOTRANSFERASE) generated this result transmitted ref erence range: <=65. Th e reference range was not used to int erpret this result as normal/abnormal . [facility] FallsOrbFlex [id number] 06:27:00 Test Item Value Reference Range Interpretation Comments AST (test code = AST) 17 See_Comment [Auto mated message] The system which ge nerated this result transmit sheba reference range : <=37. The reference range was not used to interpr et this result as edy l/abnormal. [facility] CenterPower Electronics [id number] 06:27:00 Test Item Value Reference Range Interpretation Comments Alk Phos (test code = Alk Phos) 84 39-136 [facility] FallsOrb[facility] MGOMQ5874-03-29 06:27:00 Test Item Value Reference Range Interpretation Comments Bili Total (test code = Bili Total) 0.3 0.2-1.3 [place] [address]-02-27 06:27:00 Test Item Value Reference Range Interpretation Comments Bili Direct (test code no gt See_Comment [Aut omated message] The = Bili Direct) system which generated this result tra nsmitted reference range : <=0.3. The reference r christiano was not used to int erpret this result as edy l/abnormal. [facility] FallsOr[facility] [id number] 06:27:00 Test Item Value Reference Range Interpretation Comments Bili Indirect Unable to See_Comment [Automated (test code = Bili Calculate message] T he system Indirect) which generated this result transmitted reference range : <=1.0. The reference range was not used to interpret this result as normal/abnormal . [facility] FallsOr[facility] [id number] 06:27:00 Test Item Value Reference Range Interpretation Comments Lactic Acid Lvl (test code = Lactic 0.5 0.5-2.2 Acid Lvl) [place] [address]-02-27 06:27:00 Test Item Value Reference Range Interpretation Comments Total Protein (test code = Total 6.6 6.4-8.4 Protein) [place] [address]-02-27 06:27:00 Test Item Value Reference Range Interpretation Comments Albumin Lvl (test code = Albumin Lvl) 3.0 3.5-5.0 [place] [address]-02-27 06:27:00 Test Item Value Reference Range Interpretation Comments Globulin (test code = Globulin) 3.6 2.7-4.2 [facility] PlanoLalgbygDDROCUXNO9815-05-66 06:27:00 Test Item Value Reference Range Interpretation Comments A/G Ratio (test code = A/G Ratio) 0.8 1 0.7-1.6 [facility] PlanoFortqidIFJMYETUV9778-72-63 06:27:00 Test Item Value Reference Range Interpretation Comments ALANINE AMINOTRANSFERASE 21 See_Comment [A utomated message] (test code = ALANINE The sys tem which AMINOTRANSFERASE) generated this result transmitted ref erence range: <=65. Th e reference range was not used to int erpret this result as normal/abnormal . [facility] FallsZggvocgWBIRZRWKI5664-62-41 06:27:00 Test Item Value Reference Range Interpretation Comments AST (test code = AST) 17 See_Comment [Auto mated message] The system which ge nerated this result transmit sheba reference range : <=37. The reference range was not used to interpr et this result as edy l/abnormal. [facility] CenterXznynelMTVVNPDYJ9717-60-95 06:27:00 Test Item Value Reference Range Interpretation Comments Alk Phos (test code = Alk Phos) 84 39-136 [facility] PlanoZmhipdeVVQJWSTPY6014-32-51 06:27:00 Test Item Value Reference Range Interpretation Comments Bili Total (test code = Bili Total) 0.3 0.2-1.3 [facility] PlanoFlervtsZNAYJWGTG8503-03-21 06:27:00 Test Item Value Reference Range Interpretation Comments Bili Direct (test code no gt See_Comment [Aut omated message] The = Bili Direct) system which generated this result tra nsmitted reference range : <=0.3. The reference r christiano was not used to int erpret this result as edy l/abnormal. [facility] FallsAllweybWLJMEDBEW9527-78-34 06:27:00 Test Item Value Reference Range Interpretation Comments Bili Indirect Unable to See_Comment [Automated (test code = Bili Calculate message] T he system Indirect) which generated this result transmitted reference range : <=1.0. The reference range was not used to interpret this result as normal/abnormal . [facility] FallsVfslmraTHIYNHMKK1862-39-01 06:27:00 Test Item Value Reference Range Interpretation Comments pH Justin (test code = pH Justin) 7.29 1 7.28-7.42 [facility] PlanoEqazfrqTYEQNPLYM1382-91-72 06:27:00 Test Item Value Reference Range Interpretation Comments pCO2 Justin (test code = pCO2 Justin) 65 38-52 [facility] PlanoTpkjqrnGEOGDTGDZ1956-91-19 06:27:00 Test Item Value Reference Range Interpretation Comments pO2 Justin (test code = pO2 Justin) 37 20-49 [place] 087233-02-27 06:27:00 Test Item Value Reference Range Interpretation Comments HCO3 Justin (test code = HCO3 Justin) 31 22-26 [place] 087233-02-27 06:27:00 Test Item Value Reference Range Interpretation Comments BE Justin (test code = BE Justin) 3 -2-2 [facility] PlanoClkqkwvHZUEWXQUT8076-35-46 06:27:00 Test Item Value Reference Range Interpretation Comments O2 Sat Justin (calc) (test code = O2 Sat 63.0 40.0-70.0 Justin (calc)) [facility] PlanoFlwtddfFCFABWTNQ3150-78-72 06:27:00 Test Item Value Reference Range Interpretation Comments Temp Justin (test code = Temp Justin) 37.0 [facility] PlanoLipzkehFOBWFEIVE5180-98-91 06:27:00 Test Item Value Reference Range Interpretation Comments Lactic Acid Lvl (test code = Lactic 0.5 0.5-2.2 Acid Lvl) [facility] PlanoFsnjimwHCRYHDUAL2046-45-03 06:27:00 Test Item Value Reference Range Interpretation Comments TSH (test code = TSH) 0.403 0.360-3.740 [facility] CenterZplsturWWEPBQTAPC2667-59-75 06:27:00 Test Item Value Reference Range Interpretation Comments WBC X 10x3 (test code = WBC X 10x3) 5.9 3.7-10.4 [place] 222913-02-27 06:27:00 Test Item Value Reference Range Interpretation Comments RBC X 10x6 (test code = RBC X 10x6) 3.67 4.20-5.40 [facility] CenterOqijcriRDQTNMEPVH0680-85-29 06:27:00 Test Item Value Reference Range Interpretation Comments Hgb (test code = Hgb) 10.7 12.0-16.0 [place] 222913-02-27 06:27:00 Test Item Value Reference Range Interpretation Comments Hct (test code = Hct) 33.5 36.0-48.0 [facility] CenterGoaqgzwHCYYVMITED9950-03-72 06:27:00 Test Item Value Reference Range Interpretation Comments MCV (test code = MCV) 91.4 80.0-98.0 [place] 222913-02-27 06:27:00 Test Item Value Reference Range Interpretation Comments MCH (test code = MCH) 29.3 pg 27.0-31.0 [place] 222913-02-27 06:27:00 Test Item Value Reference Range Interpretation Comments MCHC (test code = MCHC) 32.0 32.0-36.0 [place] 222913-02-27 06:27:00 Test Item Value Reference Range Interpretation Comments RDW (test code = RDW) 13.7 11.5-14.5 [place] 222913-02-27 06:27:00 Test Item Value Reference Range Interpretation Comments Platelet (test code = Platelet) 139 133-450 [place] 222913-02-27 06:27:00 Test Item Value Reference Range Interpretation Comments MPV (test code = MPV) 7.5 7.4-10.4 [place] 222913-02-27 06:27:00 Test Item Value Reference Range Interpretation Comments ACT (TEG) Rapid (test code = ACT (TEG) 121 s 86-118 Rapid) [facility] CenterIooyizfWXABTGLDRE2334-45-35 06:27:00 Test Item Value Reference Range Interpretation Comments Split Point Rapid (test code = Split 0.6 min Point Rapid) [facility] CenterWidrbdsVWIFJSQZZJ4588-84-53 06:27:00 Test Item Value Reference Range Interpretation Comments R-time Rapid (test code = R-time 0.8 min 0.4-0.7 Rapid) [facility] CenterZflawzlNKBYCSAHQV3349-37-61 06:27:00 Test Item Value Reference Range Interpretation Comments K-time Rapid (test code = K-time 0.8 min 0.6-2.3 Rapid) [place] 222913-02-27 06:27:00 Test Item Value Reference Range Interpretation Comments Angle Rapid (test code = Angle 79 degrees 64-80 Rapid) [facility] CenterKnicedpZOEFYUCKFV4379-84-87 06:27:00 Test Item Value Reference Range Interpretation Comments Max Amplitude Rapid (test code = Max 71 mm 52-71 Amplitude Rapid) [place] 222913-02-27 06:27:00 Test Item Value Reference Range Interpretation Comments G-value Rapid (test code = G-value 12.1 5.0-11.6 Rapid) [facility] CenterKbazoabVZZOSJWZSI4402-65-64 06:27:00 Test Item Value Reference Range Interpretation Comments Estimated % Lysis Rapid 0.0 See_Comment [Au tomated message] The (test code = Estimated syste m which generated % Lysis Rapid) this result t ransmitted reference range : <=7.5. The reference r christiano was not used to int erpret this result as normal/abnormal . [facility] CenterTvtvledDNMVAEZHZJ0520-70-78 06:27:00 Test Item Value Reference Range Interpretation Comments RBC Morph (test code = Normal (11/27/22 12:27 RBC Morph) AM) [facility] CenterMapuejsCCXZUSDAIB0580-16-89 06:27:00 Test Item Value Reference Range Interpretation Comments Plt Morph (test code = Normal (11/27/22 12:27 Plt Morph) AM) [place] 222913-02-27 06:27:00 Test Item Value Reference Range Interpretation Comments Segs (test code = Segs) 60.1 45.0-75.0 [place] 222913-02-27 06:27:00 Test Item Value Reference Range Interpretation Comments Lymphocytes (test code = Lymphocytes) 23.9 20.0-40.0 [facility] CenterIxckextRIWAMVSGWT7039-41-54 06:27:00 Test Item Value Reference Range Interpretation Comments Monocytes (test code = Monocytes) 9.6 2.0-12.0 [facility] CenterYpejbrhUGXTCXKELG1724-32-18 06:27:00 Test Item Value Reference Range Interpretation Comments Eosinophils (test code = 5.2 See_Comment [A utomated message] The Eosinophils) system which ge nerated this result tra nsmitted reference range : <=4.0. The reference r christiano was not used to int erpret this result as normal/abnormal . [facility] CenterAjsajrfBONAYSZQJM2462-12-23 06:27:00 Test Item Value Reference Range Interpretation Comments Basophils (test code = 1.2 See_Comment [Aut omated message] The Basophils) system which ge nerated this result tra nsmitted reference range : <=1.0. The reference r christiano was not used to int erpret this result as normal/abnormal . [facility] CenterZvfbumnIEWZIRAHQE9796-60-85 06:27:00 Test Item Value Reference Range Interpretation Comments Neutrophils # (test code = Neutrophils 3.5 1.5-8.1 #) [facility] CenterCkacqotVZTUIJXNJL5859-15-80 06:27:00 Test Item Value Reference Range Interpretation Comments Lymphocytes # (test code = Lymphocytes 1.4 1.0-5.5 #) [facility]LlgixsrYCPLOMMJPN6620-37-27 06:27:00 Test Item Value Reference Range Interpretation Comments Monocytes # (test code 0.6 See_Comment [Aut omated message] The = Monocytes #) system which generated this result tra nsmitted reference range : <=0.8. The reference r christiano was not used to int erpret this result as normal/abnormal . [facility] CenterZupwqqmZVWTHRZGVC9952-25-34 06:27:00 Test Item Value Reference Range Interpretation Comments Eosinophils # (test code 0.3 See_Comment [A utomated message] The = Eosinophils #) system whic h generated this result tra nsmitted reference range : <=0.5. The reference r christiano was not used to int erpret this result as normal/abnormal . [facility] CenterYzhkhlpOCXOURDWNM0215-90-52 06:27:00 Test Item Value Reference Range Interpretation Comments Basophils # (test code 0.1 See_Comment [Aut omated message] The = Basophils #) system which generated this result tra nsmitted reference range : <=0.2. The reference r christiano was not used to int erpret this result as normal/abnormal . [facility] CenterLucjpdoUOYBFIEPRJ6862-69-68 06:27:00 Test Item Value Reference Range Interpretation Comments ACT (TEG) Rapid (test code = ACT (TEG) 121 s 86-118 Rapid) [facility] CenterBzkftvkBHJFAQUNWY1849-34-84 06:27:00 Test Item Value Reference Range Interpretation Comments Split Point Rapid (test code = Split 0.6 min Point Rapid) [place] 222913-02-27 06:27:00 Test Item Value Reference Range Interpretation Comments R-time Rapid (test code = R-time 0.8 min 0.4-0.7 Rapid) [place] 222913-02-27 06:27:00 Test Item Value Reference Range Interpretation Comments K-time Rapid (test code = K-time 0.8 min 0.6-2.3 Rapid) [place] 222913-02-27 06:27:00 Test Item Value Reference Range Interpretation Comments Angle Rapid (test code = Angle 79 degrees 64-80 Rapid) [facility] CenterHukgperIDUJZZNGUT0460-05-12 06:27:00 Test Item Value Reference Range Interpretation Comments Max Amplitude Rapid (test code = Max 71 mm 52-71 Amplitude Rapid) [place] [address]-02-27 06:27:00 Test Item Value Reference Range Interpretation Comments G-value Rapid (test code = G-value 12.1 5.0-11.6 Rapid) [place] 222913-02-27 06:27:00 Test Item Value Reference Range Interpretation Comments Estimated % Lysis Rapid 0.0 See_Comment [Au tomated message] The (test code = Estimated syste m which generated % Lysis Rapid) this result t ransmitted reference range : <=7.5. The reference r christiano was not used to int erpret this result as normal/abnormal . [place] 222913-02-27 06:27:00 Test Item Value Reference Range Interpretation Comments RBC Morph (test code = Normal (11/27/22 12:27 RBC Morph) AM) [place] [address]-02-27 06:27:00 Test Item Value Reference Range Interpretation Comments Plt Morph (test code = Normal (11/27/22 12:27 Plt Morph) AM) [place] 222913-02-27 06:27:00 Test Item Value Reference Range Interpretation Comments Basophils # (test code 0.1 See_Comment [Aut omated message] The = Basophils #) system which generated this result tra nsmitted reference range : <=0.2. The reference r christiano was not used to int erpret this result as normal/abnormal . [facility] [id number] 06:27:00 Test Item Value Reference Range Interpretation Comments Glucose Lvl (test code = Glucose Lvl) 85 70-99 [facility] [id number] 06:27:00 Test Item Value Reference Range Interpretation Comments BUN (test code = BUN) 28 7-22 [place] 678383-02-27 06:27:00 Test Item Value Reference Range Interpretation Comments Creatinine Lvl (test code = Creatinine 2.19 0.50-1.40 Lvl) [place] 678383-02-27 06:27:00 Test Item Value Reference Range Interpretation Comments Sodium Lvl (test code = Sodium Lvl) 143 135-145 [place] 678383-02-27 06:27:00 Test Item Value Reference Range Interpretation Comments Potassium Lvl (test code = Potassium 4.3 3.5-5.1 Lvl) [place] 678383-02-27 06:27:00 Test Item Value Reference Range Interpretation Comments Chloride Lvl (test code = Chloride Lvl) 110 95-109 [place] 678383-02-27 06:27:00 Test Item Value Reference Range Interpretation Comments CO2 (test code = CO2) 27 24-32 [place] 678383-02-27 06:27:00 Test Item Value Reference Range Interpretation Comments Calcium Lvl (test code = Calcium Lvl) 8.1 8.5-10.5 [place] 678383-02-27 06:27:00 Test Item Value Reference Range Interpretation Comments AGAP (test code = AGAP) 10.3 10.0-20.0 [place] 678383-02-27 06:27:00 Test Item Value Reference Range Interpretation Comments eGFR (test code = eGFR) 22 [place] 678383-02-27 06:27:00 Test Item Value Reference Range Interpretation Comments Total Protein (test code = Total 6.6 6.4-8.4 Protein) [facility]2023-02-27 06:27:00 Test Item Value Reference Range Interpretation Comments Albumin Lvl (test code = Albumin Lvl) 3.0 3.5-5.0 [place] 678383-02-27 06:27:00 Test Item Value Reference Range Interpretation Comments Globulin (test code = Globulin) 3.6 2.7-4.2 [place] 678383-02-27 06:27:00 Test Item Value Reference Range Interpretation Comments A/G Ratio (test code = A/G Ratio) 0.8 1 0.7-1.6 [place] 678383-02-27 06:27:00 Test Item Value Reference Range Interpretation Comments ALANINE AMINOTRANSFERASE 21 See_Comment [A utomated message] (test code = ALANINE The sys tem which AMINOTRANSFERASE) generated this result transmitted ref erence range: <=65. Th e reference range was not used to int erpret this result as normal/abnormal . [facility] [id number] 06:27:00 Test Item Value Reference Range Interpretation Comments AST (test code = AST) 17 See_Comment [Auto mated message] The system which ge nerated this result transmit sheba reference range : <=37. The reference range was not used to interpr et this result as edy l/abnormal. [facility] [id number] 06:27:00 Test Item Value Reference Range Interpretation Comments Alk Phos (test code = Alk Phos) 84 39-136 [facility] [id number] 06:27:00 Test Item Value Reference Range Interpretation Comments Bili Total (test code = Bili Total) 0.3 0.2-1.3 [facility] [id number] 06:27:00 Test Item Value Reference Range Interpretation Comments Bili Direct (test code no gt See_Comment [Aut omated message] The = Bili Direct) system which generated this result tra nsmitted reference range : <=0.3. The reference r christiano was not used to int erpret this result as edy l/abnormal. [facility] [id number] 06:27:00 Test Item Value Reference Range Interpretation Comments Bili Indirect Unable to See_Comment [Automated (test code = Bili Calculate message] T he system Indirect) which generated this result transmitted reference range : <=1.0. The reference range was not used to interpret this result as normal/abnormal . [facility] [id number] 06:27:00 Test Item Value Reference Range Interpretation Comments Lactic Acid Lvl (test code = Lactic 0.5 0.5-2.2 Acid Lvl) [facility] FallsCpfjincLSWGJSMSD4617-51-75 06:27:00 Test Item Value Reference Range Interpretation Comments Total Protein (test code = Total 6.6 6.4-8.4 Protein) [facility] CenterMdqzjhdYVEOPGVTC2700-45-03 06:27:00 Test Item Value Reference Range Interpretation Comments Albumin Lvl (test code = Albumin Lvl) 3.0 3.5-5.0 [facility] FallsOoalfwfQPKJELZPK6922-08-74 06:27:00 Test Item Value Reference Range Interpretation Comments Globulin (test code = Globulin) 3.6 2.7-4.2 [facility]anoQwdsdqfCXYAKRZGU2367-70-51 06:27:00 Test Item Value Reference Range Interpretation Comments A/G Ratio (test code = A/G Ratio) 0.8 1 0.7-1.6 [facility] PlanoJecowgbMHTXYHMCX4596-45-24 06:27:00 Test Item Value Reference Range Interpretation Comments ALANINE AMINOTRANSFERASE 21 See_Comment [A utomated message] (test code = ALANINE The sys tem which AMINOTRANSFERASE) generated this result transmitted ref erence range: <=65. Th e reference range was not used to int erpret this result as normal/abnormal . [facility] PlanoEqszweoZJAMHAJPU8036-81-46 06:27:00 Test Item Value Reference Range Interpretation Comments AST (test code = AST) 17 See_Comment [Auto mated message] The system which ge nerated this result transmit sheba reference range : <=37. The reference range was not used to interpr et this result as edy l/abnormal. [facility] PlanoLynvfeiUZHXEGKFY0693-88-73 06:27:00 Test Item Value Reference Range Interpretation Comments Alk Phos (test code = Alk Phos) 84 39-136 [facility] PlanoNkiymguVFDFQQZQS3874-07-01 06:27:00 Test Item Value Reference Range Interpretation Comments Bili Total (test code = Bili Total) 0.3 0.2-1.3 [facility] PlanoLnzeaaxJCWSLJFCJ0237-26-06 06:27:00 Test Item Value Reference Range Interpretation Comments Bili Direct (test code no gt See_Comment [Aut omated message] The = Bili Direct) system which generated this result tra nsmitted reference range : <=0.3. The reference r christiano was not used to int erpret this result as edy l/abnormal. [facility] PlanoJxmvcnpRKAWPLIZD4913-00-32 06:27:00 Test Item Value Reference Range Interpretation Comments Bili Indirect Unable to See_Comment [Automated (test code = Bili Calculate message] T he system Indirect) which generated this result transmitted reference range : <=1.0. The reference range was not used to interpret this result as normal/abnormal . [facility] PlanoZgoyecoYFPXCGVMB0362-95-40 06:27:00 Test Item Value Reference Range Interpretation Comments pH Justin (test code = pH Justin) 7.29 1 7.28-7.42 [facility] PlanoLxtzsabHMDWSNUSZ2664-78-01 06:27:00 Test Item Value Reference Range Interpretation Comments pCO2 Justin (test code = pCO2 Justin) 65 38-52 [place] 087233-02-27 06:27:00 Test Item Value Reference Range Interpretation Comments pO2 Justin (test code = pO2 Justin) 37 20-49 [place] 087233-02-27 06:27:00 Test Item Value Reference Range Interpretation Comments HCO3 Justin (test code = HCO3 Justin) 31 22-26 [place] 087233-02-27 06:27:00 Test Item Value Reference Range Interpretation Comments BE Justin (test code = BE Justin) 3 -2-2 [place] 087233-02-27 06:27:00 Test Item Value Reference Range Interpretation Comments O2 Sat Justin (calc) (test code = O2 Sat 63.0 40.0-70.0 Justin (calc)) [facility] PlanoYqoebrtJZANLQBZT5866-49-41 06:27:00 Test Item Value Reference Range Interpretation Comments Temp Justin (test code = Temp Justin) 37.0 [place] 087233-02-27 06:27:00 Test Item Value Reference Range Interpretation Comments Lactic Acid Lvl (test code = Lactic 0.5 0.5-2.2 Acid Lvl) [facility] PlanoYjwvhipIBLVFXYNX2739-44-84 06:27:00 Test Item Value Reference Range Interpretation Comments TSH (test code = TSH) 0.403 0.360-3.740 [place] 222913-02-27 06:27:00 Test Item Value Reference Range Interpretation Comments WBC X 10x3 (test code = WBC X 10x3) 5.9 3.7-10.4 [place] 222913-02-27 06:27:00 Test Item Value Reference Range Interpretation Comments RBC X 10x6 (test code = RBC X 10x6) 3.67 4.20-5.40 [place] 222913-02-27 06:27:00 Test Item Value Reference Range Interpretation Comments Hgb (test code = Hgb) 10.7 12.0-16.0 [place] 222913-02-27 06:27:00 Test Item Value Reference Range Interpretation Comments Hct (test code = Hct) 33.5 36.0-48.0 [place] 222913-02-27 06:27:00 Test Item Value Reference Range Interpretation Comments MCV (test code = MCV) 91.4 80.0-98.0 [place] 222913-02-27 06:27:00 Test Item Value Reference Range Interpretation Comments MCH (test code = MCH) 29.3 pg 27.0-31.0 [place] 222913-02-27 06:27:00 Test Item Value Reference Range Interpretation Comments MCHC (test code = MCHC) 32.0 32.0-36.0 [place] 222913-02-27 06:27:00 Test Item Value Reference Range Interpretation Comments RDW (test code = RDW) 13.7 11.5-14.5 [place] [address]-02-27 06:27:00 Test Item Value Reference Range Interpretation Comments Platelet (test code = Platelet) 139 133-450 [place] 222913-02-27 06:27:00 Test Item Value Reference Range Interpretation Comments MPV (test code = MPV) 7.5 7.4-10.4 [place] [address]-02-27 06:27:00 Test Item Value Reference Range Interpretation Comments ACT (TEG) Rapid (test code = ACT (TEG) 121 s 86-118 Rapid) [place] 222913-02-27 06:27:00 Test Item Value Reference Range Interpretation Comments Split Point Rapid (test code = Split 0.6 min Point Rapid) [place] [address]-02-27 06:27:00 Test Item Value Reference Range Interpretation Comments R-time Rapid (test code = R-time 0.8 min 0.4-0.7 Rapid) [place] 222913-02-27 06:27:00 Test Item Value Reference Range Interpretation Comments K-time Rapid (test code = K-time 0.8 min 0.6-2.3 Rapid) [place] [address]-02-27 06:27:00 Test Item Value Reference Range Interpretation Comments Angle Rapid (test code = Angle 79 degrees 64-80 Rapid) [place] 222913-02-27 06:27:00 Test Item Value Reference Range Interpretation Comments Max Amplitude Rapid (test code = Max 71 mm 52-71 Amplitude Rapid) [place] 222913-02-27 06:27:00 Test Item Value Reference Range Interpretation Comments G-value Rapid (test code = G-value 12.1 5.0-11.6 Rapid) [facility] CenterBxunqjaIEYHWIOXDM4389-14-85 06:27:00 Test Item Value Reference Range Interpretation Comments Estimated % Lysis Rapid 0.0 See_Comment [Au tomated message] The (test code = Estimated syste m which generated % Lysis Rapid) this result t ransmitted reference range : <=7.5. The reference r christiano was not used to int erpret this result as normal/abnormal . [facility] CenterBovnhjgHGMPNAMTYY7754-05-43 06:27:00 Test Item Value Reference Range Interpretation Comments RBC Morph (test code = Normal (11/27/22 12:27 RBC Morph) AM) [facility] CenterDsnadxlOBDQPTNEYJ8965-88-75 06:27:00 Test Item Value Reference Range Interpretation Comments Plt Morph (test code = Normal (11/27/22 12:27 Plt Morph) AM) [facility] CenterHvucvjjZYQNPVPMHI5817-37-38 06:27:00 Test Item Value Reference Range Interpretation Comments Segs (test code = Segs) 60.1 45.0-75.0 [facility] CenterUfzxrshWLWBSYMAAH4271-48-98 06:27:00 Test Item Value Reference Range Interpretation Comments Lymphocytes (test code = Lymphocytes) 23.9 20.0-40.0 [facility] CenterJiqgegaRKCMROXBVZ0707-85-82 06:27:00 Test Item Value Reference Range Interpretation Comments Monocytes (test code = Monocytes) 9.6 2.0-12.0 [facility] CenterFcjgnzvNZTCQRZOSC6110-50-70 06:27:00 Test Item Value Reference Range Interpretation Comments Eosinophils (test code = 5.2 See_Comment [A utomated message] The Eosinophils) system which ge nerated this result tra nsmitted reference range : <=4.0. The reference r christiano was not used to int erpret this result as normal/abnormal . [facility] CenterNonqldmNOVMJUUNRY5627-98-66 06:27:00 Test Item Value Reference Range Interpretation Comments Basophils (test code = 1.2 See_Comment [Aut omated message] The Basophils) system which ge nerated this result tra nsmitted reference range : <=1.0. The reference r christiano was not used to int erpret this result as normal/abnormal . [facility] CenterTcwxchoKROMHUZWOI9765-26-92:27:00 Test Item Value Reference Range Interpretation Comments Neutrophils # (test code = Neutrophils 3.5 1.5-8.1 #) [facility] CenterPckkkeyYZFKLZDLVX1655-15-34 06:27:00 Test Item Value Reference Range Interpretation Comments Lymphocytes # (test code = Lymphocytes 1.4 1.0-5.5 #) [place] 222913-02-27 06:27:00 Test Item Value Reference Range Interpretation Comments Monocytes # (test code 0.6 See_Comment [Aut omated message] The = Monocytes #) system which generated this result tra nsmitted reference range : <=0.8. The reference r christiano was not used to int erpret this result as normal/abnormal . [place] 222913-02-27 06:27:00 Test Item Value Reference Range Interpretation Comments Eosinophils # (test code 0.3 See_Comment [A utomated message] The = Eosinophils #) system whic h generated this result tra nsmitted reference range : <=0.5. The reference r christiano was not used to int erpret this result as normal/abnormal . [facility] CenterNuopvolYHSGAFTZZR1122-23-15 06:27:00 Test Item Value Reference Range Interpretation Comments Basophils # (test code 0.1 See_Comment [Aut omated message] The = Basophils #) system which generated this result tra nsmitted reference range : <=0.2. The reference r christiano was not used to int erpret this result as normal/abnormal . [facility] CenterEfbwwfdXRGKZNYRNY5421-71-43 06:27:00 Test Item Value Reference Range Interpretation Comments ACT (TEG) Rapid (test code = ACT (TEG) 121 s 86-118 Rapid) [facility] CenterTeobimrVGRAVXWVHD7324-27-37 06:27:00 Test Item Value Reference Range Interpretation Comments Split Point Rapid (test code = Split 0.6 min Point Rapid) [place] [address]-02-27 06:27:00 Test Item Value Reference Range Interpretation Comments R-time Rapid (test code = R-time 0.8 min 0.4-0.7 Rapid) [place] 222913-02-27 06:27:00 Test Item Value Reference Range Interpretation Comments K-time Rapid (test code = K-time 0.8 min 0.6-2.3 Rapid) [place] 222913-02-27 06:27:00 Test Item Value Reference Range Interpretation Comments Angle Rapid (test code = Angle 79 degrees 64-80 Rapid) [place] 222913-02-27 06:27:00 Test Item Value Reference Range Interpretation Comments Max Amplitude Rapid (test code = Max 71 mm 52-71 Amplitude Rapid) [place] [address]-02-27 06:27:00 Test Item Value Reference Range Interpretation Comments G-value Rapid (test code = G-value 12.1 5.0-11.6 Rapid) [place] 222913-02-27 06:27:00 Test Item Value Reference Range Interpretation Comments Estimated % Lysis Rapid 0.0 See_Comment [Au tomated message] The (test code = Estimated syste m which generated % Lysis Rapid) this result t ransmitted reference range : <=7.5. The reference r christiano was not used to int erpret this result as normal/abnormal . [place] 222913-02-27 06:27:00 Test Item Value Reference Range Interpretation Comments RBC Morph (test code = Normal (11/27/22 12:27 RBC Morph) AM) [place] [address]-02-27 06:27:00 Test Item Value Reference Range Interpretation Comments Plt Morph (test code = Normal (11/27/22 12:27 Plt Morph) AM) [place] [address]-02-27 06:27:00 Test Item Value Reference Range Interpretation Comments Basophils # (test code 0.1 See_Comment [Aut omated message] The = Basophils #) system which generated this result tra nsmitted reference range : <=0.2. The reference r christiano was not used to int erpret this result as normal/abnormal . [facility]2023-02-27 06:27:00 Test Item Value Reference Range Interpretation Comments Glucose Lvl (test code = Glucose Lvl) 85 70-99 [place] 678383-02-27 06:27:00 Test Item Value Reference Range Interpretation Comments BUN (test code = BUN) 28 7-22 [place] 678383-02-27 06:27:00 Test Item Value Reference Range Interpretation Comments Creatinine Lvl (test code = Creatinine 2.19 0.50-1.40 Lvl) [place] 678383-02-27 06:27:00 Test Item Value Reference Range Interpretation Comments Sodium Lvl (test code = Sodium Lvl) 143 135-145 [place] 678383-02-27 06:27:00 Test Item Value Reference Range Interpretation Comments Potassium Lvl (test code = Potassium 4.3 3.5-5.1 Lvl) [place] 678383-02-27 06:27:00 Test Item Value Reference Range Interpretation Comments Chloride Lvl (test code = Chloride Lvl) 110 95-109 [place] 678383-02-27 06:27:00 Test Item Value Reference Range Interpretation Comments CO2 (test code = CO2) 24-32 [place] 678383-02-27 06:27:00 Test Item Value Reference Range Interpretation Comments Calcium Lvl (test code = Calcium Lvl) 8.1 8.5-10.5 [place] 678383-02-27 06:27:00 Test Item Value Reference Range Interpretation Comments AGAP (test code = AGAP) 10.3 10.0-20.0 [place] 678383-02-27 06:27:00 Test Item Value Reference Range Interpretation Comments eGFR (test code = eGFR) 22 [place] 678383-02-27 06:27:00 Test Item Value Reference Range Interpretation Comments Total Protein (test code = Total 6.6 6.4-8.4 Protein) [place] 678383-02-27 06:27:00 Test Item Value Reference Range Interpretation Comments Albumin Lvl (test code = Albumin Lvl) 3.0 3.5-5.0 [place] 678383-02-27 06:27:00 Test Item Value Reference Range Interpretation Comments Globulin (test code = Globulin) 3.6 2.7-4.2 [place] 678383-02-27 06:27:00 Test Item Value Reference Range Interpretation Comments A/G Ratio (test code = A/G Ratio) 0.8 1 0.7-1.6 [place] [address]-02-27 06:27:00 Test Item Value Reference Range Interpretation Comments ALANINE AMINOTRANSFERASE 21 See_Comment [A utomated message] (test code = ALANINE The sys tem which AMINOTRANSFERASE) generated this result transmitted ref erence range: <=65. Th e reference range was not used to int erpret this result as normal/abnormal . [facility] [id number] 06:27:00 Test Item Value Reference Range Interpretation Comments AST (test code = AST) 17 See_Comment [Auto mated message] The system which ge nerated this result transmit sheba reference range : <=37. The reference range was not used to interpr et this result as edy l/abnormal. [facility] EZJGK4043-24-79 06:27:00 Test Item Value Reference Range Interpretation Comments Alk Phos (test code = Alk Phos) 84 39-136 [facility] JJTOH1974-03-50 06:27:00 Test Item Value Reference Range Interpretation Comments Bili Total (test code = Bili Total) 0.3 0.2-1.3 [facility] [id number] 06:27:00 Test Item Value Reference Range Interpretation Comments Bili Direct (test code no gt See_Comment [Aut omated message] The = Bili Direct) system which generated this result tra nsmitted reference range : <=0.3. The reference r christiano was not used to int erpret this result as edy l/abnormal. [facility] [id number] 06:27:00 Test Item Value Reference Range Interpretation Comments Bili Indirect Unable to See_Comment [Automated (test code = Bili Calculate message] T he system Indirect) which generated this result transmitted reference range : <=1.0. The reference range was not used to interpret this result as normal/abnormal . [facility] [id number] 06:27:00 Test Item Value Reference Range Interpretation Comments Lactic Acid Lvl (test code = Lactic 0.5 0.5-2.2 Acid Lvl) [facility] CenterOfiuifmFKGAHJQPH9512-68-04 06:27:00 Test Item Value Reference Range Interpretation Comments Total Protein (test code = Total 6.6 6.4-8.4 Protein) [place] [address]-02-27 06:27:00 Test Item Value Reference Range Interpretation Comments Albumin Lvl (test code = Albumin Lvl) 3.0 3.5-5.0 [place] [address]-02-27 06:27:00 Test Item Value Reference Range Interpretation Comments Globulin (test code = Globulin) 3.6 2.7-4.2 [facility] CenterOfgkihgMAHIWPXVW5854-15-49 06:27:00 Test Item Value Reference Range Interpretation Comments A/G Ratio (test code = A/G Ratio) 0.8 1 0.7-1.6 [facility] PlanoNigqpiuYIDBOBBRP9695-18-07 06:27:00 Test Item Value Reference Range Interpretation Comments ALANINE AMINOTRANSFERASE 21 See_Comment [A utomated message] (test code = ALANINE The sys tem which AMINOTRANSFERASE) generated this result transmitted ref erence range: <=65. Th e reference range was not used to int erpret this result as normal/abnormal . [facility] CenterIwrxwlgGLSPCZQQB6955-35-39 06:27:00 Test Item Value Reference Range Interpretation Comments AST (test code = AST) 17 See_Comment [Auto mated message] The system which ge nerated this result transmit sheba reference range : <=37. The reference range was not used to interpr et this result as edy l/abnormal. [facility]QqxtrhiDHOIYXVYT3611-20-37 06:27:00 Test Item Value Reference Range Interpretation Comments Alk Phos (test code = Alk Phos) 84 39-136 [facility]anoNaxxvmoPCOKEZQJD7416-97-84 06:27:00 Test Item Value Reference Range Interpretation Comments Bili Total (test code = Bili Total) 0.3 0.2-1.3 [facility] PlanoDswbwduJJKDDANCC0957-96-74 06:27:00 Test Item Value Reference Range Interpretation Comments Bili Direct (test code no gt See_Comment [Aut omated message] The = Bili Direct) system which generated this result tra nsmitted reference range : <=0.3. The reference r christiano was not used to int erpret this result as edy l/abnormal. [facility] CenterHszngheRNZINBSKQ7321-36-53 06:27:00 Test Item Value Reference Range Interpretation Comments Bili Indirect Unable to See_Comment [Automated (test code = Bili Calculate message] T he system Indirect) which generated this result transmitted reference range : <=1.0. The reference range was not used to interpret this result as normal/abnormal . [facility]anoEoodmqbHUWXWXMEH0568-20-75 06:27:00 Test Item Value Reference Range Interpretation Comments pH Justin (test code = pH Justin) 7.29 1 7.28-7.42 [facility] PlanoLyqcbzdZDAXOHXQB2264-86-64 06:27:00 Test Item Value Reference Range Interpretation Comments pCO2 Justin (test code = pCO2 Justin) 65 38-52 [facility] PlanoNxidvknAUZZHSOWW1754-76-66 06:27:00 Test Item Value Reference Range Interpretation Comments pO2 Justin (test code = pO2 Justin) 37 20-49 [facility] PlanoCkawgrvGEVQYBSGS2765-36-54 06:27:00 Test Item Value Reference Range Interpretation Comments HCO3 Justin (test code = HCO3 Justin) 31 22-26 [place] 087233-02-27 06:27:00 Test Item Value Reference Range Interpretation Comments BE Justin (test code = BE Justin) 3 -2-2 [place] 087233-02-27 06:27:00 Test Item Value Reference Range Interpretation Comments O2 Sat Justin (calc) (test code = O2 Sat 63.0 40.0-70.0 Justin (calc)) [facility] PlanoLkcpitqLTMWENBQL3359-74-99 06:27:00 Test Item Value Reference Range Interpretation Comments Temp Justin (test code = Temp Justin) 37.0 [place] 087233-02-27 06:27:00 Test Item Value Reference Range Interpretation Comments Lactic Acid Lvl (test code = Lactic 0.5 0.5-2.2 Acid Lvl) [facility]anoAjnozpeWKIXTIDTI6407-01-95 06:27:00 Test Item Value Reference Range Interpretation Comments TSH (test code = TSH) 0.403 0.360-3.740 [facility] CenterXvhvjkaDICLGOXCRK4248-68-59 06:27:00 Test Item Value Reference Range Interpretation Comments WBC X 10x3 (test code = WBC X 10x3) 5.9 3.7-10.4 [place] 222913-02-27 06:27:00 Test Item Value Reference Range Interpretation Comments RBC X 10x6 (test code = RBC X 10x6) 3.67 4.20-5.40 [place] 222913-02-27 06:27:00 Test Item Value Reference Range Interpretation Comments Hgb (test code = Hgb) 10.7 12.0-16.0 [place] 222913-02-27 06:27:00 Test Item Value Reference Range Interpretation Comments Hct (test code = Hct) 33.5 36.0-48.0 [place] 222913-02-27 06:27:00 Test Item Value Reference Range Interpretation Comments MCV (test code = MCV) 91.4 80.0-98.0 [place] 222913-02-27 06:27:00 Test Item Value Reference Range Interpretation Comments MCH (test code = MCH) 29.3 pg 27.0-31.0 [place] 222913-02-27 06:27:00 Test Item Value Reference Range Interpretation Comments MCHC (test code = MCHC) 32.0 32.0-36.0 [place] 222913-02-27 06:27:00 Test Item Value Reference Range Interpretation Comments RDW (test code = RDW) 13.7 11.5-14.5 [place] 222913-02-27 06:27:00 Test Item Value Reference Range Interpretation Comments Platelet (test code = Platelet) 139 133-450 [place] 222913-02-27 06:27:00 Test Item Value Reference Range Interpretation Comments MPV (test code = MPV) 7.5 7.4-10.4 [place] 222913-02-27 06:27:00 Test Item Value Reference Range Interpretation Comments ACT (TEG) Rapid (test code = ACT (TEG) 121 s 86-118 Rapid) [place] 222913-02-27 06:27:00 Test Item Value Reference Range Interpretation Comments Split Point Rapid (test code = Split 0.6 min Point Rapid) [place] 222913-02-27 06:27:00 Test Item Value Reference Range Interpretation Comments R-time Rapid (test code = R-time 0.8 min 0.4-0.7 Rapid) [place] 222913-02-27 06:27:00 Test Item Value Reference Range Interpretation Comments K-time Rapid (test code = K-time 0.8 min 0.6-2.3 Rapid) [place] [address]-02-27 06:27:00 Test Item Value Reference Range Interpretation Comments Angle Rapid (test code = Angle 79 degrees 64-80 Rapid) [place] 222913-02-27 06:27:00 Test Item Value Reference Range Interpretation Comments Max Amplitude Rapid (test code = Max 71 mm 52-71 Amplitude Rapid) [place] 222913-02-27 06:27:00 Test Item Value Reference Range Interpretation Comments G-value Rapid (test code = G-value 12.1 5.0-11.6 Rapid) [facility] CenterUzryltgLBVZZSKSZO1478-91-17 06:27:00 Test Item Value Reference Range Interpretation Comments Estimated % Lysis Rapid 0.0 See_Comment [Au tomated message] The (test code = Estimated syste m which generated % Lysis Rapid) this result t ransmitted reference range : <=7.5. The reference r christiano was not used to int erpret this result as normal/abnormal . [facility] CenterLjpwrduAYGERCYTZN1469-32-85 06:27:00 Test Item Value Reference Range Interpretation Comments RBC Morph (test code = Normal (11/27/22 12:27 RBC Morph) AM) [facility] CenterBmbwaxcMQUNRFCERZ7412-66-74 06:27:00 Test Item Value Reference Range Interpretation Comments Plt Morph (test code = Normal (11/27/22 12:27 Plt Morph) AM) [facility] CenterYmufiacMNUUYMVMWQ0105-54-87 06:27:00 Test Item Value Reference Range Interpretation Comments Segs (test code = Segs) 60.1 45.0-75.0 [facility] CenterThuoubrXBYHQKUNUO0370-46-56 06:27:00 Test Item Value Reference Range Interpretation Comments Lymphocytes (test code = Lymphocytes) 23.9 20.0-40.0 [facility] CenterYonffwoTRCFFTTYAK9995-92-70 06:27:00 Test Item Value Reference Range Interpretation Comments Monocytes (test code = Monocytes) 9.6 2.0-12.0 [facility] CenterLuwmhlzQOPFJBQFWI4708-95-95 06:27:00 Test Item Value Reference Range Interpretation Comments Eosinophils (test code = 5.2 See_Comment [A utomated message] The Eosinophils) system which ge nerated this result tra nsmitted reference range : <=4.0. The reference r christiano was not used to int erpret this result as normal/abnormal . [facility] CenterXdpfjcdPHLZBEVMXI2476-63-03 06:27:00 Test Item Value Reference Range Interpretation Comments Basophils (test code = 1.2 See_Comment [Aut omated message] The Basophils) system which ge nerated this result tra nsmitted reference range : <=1.0. The reference r christiano was not used to int erpret this result as normal/abnormal . [facility] CenterGrmkoksUJPGZLACJZ0171-28-10 06:27:00 Test Item Value Reference Range Interpretation Comments Neutrophils # (test code = Neutrophils 3.5 1.5-8.1 #) [place] 222913-02-27 06:27:00 Test Item Value Reference Range Interpretation Comments Lymphocytes # (test code = Lymphocytes 1.4 1.0-5.5 #) [facility] CenterIbxzvbbRZDACRLKSC8497-67-97 06:27:00 Test Item Value Reference Range Interpretation Comments Monocytes # (test code 0.6 See_Comment [Aut omated message] The = Monocytes #) system which generated this result tra nsmitted reference range : <=0.8. The reference r christiano was not used to int erpret this result as normal/abnormal . [place] 222913-02-27 06:27:00 Test Item Value Reference Range Interpretation Comments Eosinophils # (test code 0.3 See_Comment [A utomated message] The = Eosinophils #) system whic h generated this result tra nsmitted reference range : <=0.5. The reference r christiano was not used to int erpret this result as normal/abnormal . [place] 222913-02-27 06:27:00 Test Item Value Reference Range Interpretation Comments Basophils # (test code 0.1 See_Comment [Aut omated message] The = Basophils #) system which generated this result tra nsmitted reference range : <=0.2. The reference r christiano was not used to int erpret this result as normal/abnormal . [facility] CenterJicrfydHYODZCBXJV8081-43-49 06:27:00 Test Item Value Reference Range Interpretation Comments ACT (TEG) Rapid (test code = ACT (TEG) 121 s 86-118 Rapid) [place] 222913-02-27 06:27:00 Test Item Value Reference Range Interpretation Comments Split Point Rapid (test code = Split 0.6 min Point Rapid) [place] [address]-02-27 06:27:00 Test Item Value Reference Range Interpretation Comments R-time Rapid (test code = R-time 0.8 min 0.4-0.7 Rapid) [place] [address]-02-27 06:27:00 Test Item Value Reference Range Interpretation Comments K-time Rapid (test code = K-time 0.8 min 0.6-2.3 Rapid) [place] [address]-02-27 06:27:00 Test Item Value Reference Range Interpretation Comments Angle Rapid (test code = Angle 79 degrees 64-80 Rapid) [facility] CenterGsiismzTWEZOXBBFH0260-25-61 06:27:00 Test Item Value Reference Range Interpretation Comments Max Amplitude Rapid (test code = Max 71 mm 52-71 Amplitude Rapid) [facility] CenterQjobjuaIVLAICRJKJ6085-90-97 06:27:00 Test Item Value Reference Range Interpretation Comments G-value Rapid (test code = G-value 12.1 5.0-11.6 Rapid) [place] 222913-02-27 06:27:00 Test Item Value Reference Range Interpretation Comments Estimated % Lysis Rapid 0.0 See_Comment [Au tomated message] The (test code = Estimated syste m which generated % Lysis Rapid) this result t ransmitted reference range : <=7.5. The reference r christiano was not used to int erpret this result as normal/abnormal . [place] 222913-02-27 06:27:00 Test Item Value Reference Range Interpretation Comments RBC Morph (test code = Normal (11/27/22 12:27 RBC Morph) AM) [place] 222913-02-27 06:27:00 Test Item Value Reference Range Interpretation Comments Plt Morph (test code = Normal (11/27/22 12:27 Plt Morph) AM) [place] 222913-02-27 06:27:00 Test Item Value Reference Range Interpretation Comments Basophils # (test code 0.1 See_Comment [Aut omated message] The = Basophils #) system which generated this result tra nsmitted reference range : <=0.2. The reference r christiano was not used to int erpret this result as normal/abnormal . [facility] FallsOrbFlex WFPJL8379-71-21 06:27:00 Test Item Value Reference Range Interpretation Comments Glucose Lvl (test code = Glucose Lvl) 85 70-99 [facility] [id number] 06:27:00 Test Item Value Reference Range Interpretation Comments BUN (test code = BUN) 28 7-22 [place] 678383-02-27 06:27:00 Test Item Value Reference Range Interpretation Comments Creatinine Lvl (test code = Creatinine 2.19 0.50-1.40 Lvl) [place] 678383-02-27 06:27:00 Test Item Value Reference Range Interpretation Comments Sodium Lvl (test code = Sodium Lvl) 143 135-145 [facility]2023-02-27 06:27:00 Test Item Value Reference Range Interpretation Comments Potassium Lvl (test code = Potassium 4.3 3.5-5.1 Lvl) [facility]2023-02-27 06:27:00 Test Item Value Reference Range Interpretation Comments Chloride Lvl (test code = Chloride Lvl) 110 95-109 [facility]2023-02-27 06:27:00 Test Item Value Reference Range Interpretation Comments CO2 (test code = CO2) -32 [place] 678383-02-27 06:27:00 Test Item Value Reference Range Interpretation Comments Calcium Lvl (test code = Calcium Lvl) 8.1 8.5-10.5 [place] 678383-02-27 06:27:00 Test Item Value Reference Range Interpretation Comments AGAP (test code = AGAP) 10.3 10.0-20.0 [facility]2023-02-27 06:27:00 Test Item Value Reference Range Interpretation Comments eGFR (test code = eGFR) 22 [facility]2023-02-27 06:27:00 Test Item Value Reference Range Interpretation Comments Total Protein (test code = Total 6.6 6.4-8.4 Protein) [facility]2023-02-27 06:27:00 Test Item Value Reference Range Interpretation Comments Albumin Lvl (test code = Albumin Lvl) 3.0 3.5-5.0 [facility]2023-02-27 06:27:00 Test Item Value Reference Range Interpretation Comments Globulin (test code = Globulin) 3.6 2.7-4.2 [place] 678383-02-27 06:27:00 Test Item Value Reference Range Interpretation Comments A/G Ratio (test code = A/G Ratio) 0.8 1 0.7-1.6 [place] 678383-02-27 06:27:00 Test Item Value Reference Range Interpretation Comments ALANINE AMINOTRANSFERASE 21 See_Comment [A utomated message] (test code = ALANINE The sys tem which AMINOTRANSFERASE) generated this result transmitted ref erence range: <=65. Th e reference range was not used to int erpret this result as normal/abnormal . [place] 678383-02-27 06:27:00 Test Item Value Reference Range Interpretation Comments AST (test code = AST) 17 See_Comment [Auto mated message] The system which ge nerated this result transmit sheba reference range : <=37. The reference range was not used to interpr et this result as edy l/abnormal. [place] 678383-02-27 06:27:00 Test Item Value Reference Range Interpretation Comments Alk Phos (test code = Alk Phos) 84 39-136 [facility] FallsOrbFlex [id number] 06:27:00 Test Item Value Reference Range Interpretation Comments Bili Total (test code = Bili Total) 0.3 0.2-1.3 [place] [address]-02-27 06:27:00 Test Item Value Reference Range Interpretation Comments Bili Direct (test code no gt See_Comment [Aut omated message] The = Bili Direct) system which generated this result tra nsmitted reference range : <=0.3. The reference r christiano was not used to int erpret this result as edy l/abnormal. [facility] Center[facility] GTXQH2807-64-98 06:27:00 Test Item Value Reference Range Interpretation Comments Bili Indirect Unable to See_Comment [Automated (test code = Bili Calculate message] T he system Indirect) which generated this result transmitted reference range : <=1.0. The reference range was not used to interpret this result as normal/abnormal . [facility] Center[facility] [id number] 06:27:00 Test Item Value Reference Range Interpretation Comments Lactic Acid Lvl (test code = Lactic 0.5 0.5-2.2 Acid Lvl) [place] 087233-02-27 06:27:00 Test Item Value Reference Range Interpretation Comments Total Protein (test code = Total 6.6 6.4-8.4 Protein) [place] [address]-02-27 06:27:00 Test Item Value Reference Range Interpretation Comments Albumin Lvl (test code = Albumin Lvl) 3.0 3.5-5.0 [place] [address]-02-27 06:27:00 Test Item Value Reference Range Interpretation Comments Globulin (test code = Globulin) 3.6 2.7-4.2 [place] [address]-02-27 06:27:00 Test Item Value Reference Range Interpretation Comments A/G Ratio (test code = A/G Ratio) 0.8 1 0.7-1.6 [facility] CenterTfynmhsWGUUXNFDG7219-56-64 06:27:00 Test Item Value Reference Range Interpretation Comments ALANINE AMINOTRANSFERASE 21 See_Comment [A utomated message] (test code = ALANINE The sys tem which AMINOTRANSFERASE) generated this result transmitted ref erence range: <=65. Th e reference range was not used to int erpret this result as normal/abnormal . [facility] FallsLufyvudPOLJDBJVE2685-43-76 06:27:00 Test Item Value Reference Range Interpretation Comments AST (test code = AST) 17 See_Comment [Auto mated message] The system which ge nerated this result transmit sheba reference range : <=37. The reference range was not used to interpr et this result as edy l/abnormal. [facility] CenterQiesbwoJBTMEYKHX9734-52-16 06:27:00 Test Item Value Reference Range Interpretation Comments Alk Phos (test code = Alk Phos) 84 39-136 [facility] CenterAbcgzpzQGSNKMGQK7657-58-73 06:27:00 Test Item Value Reference Range Interpretation Comments Bili Total (test code = Bili Total) 0.3 0.2-1.3 [facility] CenterHxsvsmcMPYIVIDRN3211-61-91 06:27:00 Test Item Value Reference Range Interpretation Comments Bili Direct (test code no gt See_Comment [Aut omated message] The = Bili Direct) system which generated this result tra nsmitted reference range : <=0.3. The reference r christiano was not used to int erpret this result as edy l/abnormal. [facility] FallsAofmtwvHIHNEPUKM8308-08-95 06:27:00 Test Item Value Reference Range Interpretation Comments Bili Indirect Unable to See_Comment [Automated (test code = Bili Calculate message] T he system Indirect) which generated this result transmitted reference range : <=1.0. The reference range was not used to interpret this result as normal/abnormal . [facility] FallsZpdhvwdYBRBQJQWR1596-92-70 06:27:00 Test Item Value Reference Range Interpretation Comments pH Justin (test code = pH Justin) 7.29 1 7.28-7.42 [facility] FallsQcenugiIAXHDSNOM9771-28-09 06:27:00 Test Item Value Reference Range Interpretation Comments pCO2 Justin (test code = pCO2 Justin) 65 38-52 [facility] PlanoRwwqvxiMGNWMPHUD1331-80-86 06:27:00 Test Item Value Reference Range Interpretation Comments pO2 Justin (test code = pO2 Justin) 37 20-49 [place] 087233-02-27 06:27:00 Test Item Value Reference Range Interpretation Comments HCO3 Justin (test code = HCO3 Justin) 31 22-26 [place] 087233-02-27 06:27:00 Test Item Value Reference Range Interpretation Comments BE Justin (test code = BE Justin) 3 -2-2 [facility] PlanoKffxmymEHQRKGNMT9258-44-83 06:27:00 Test Item Value Reference Range Interpretation Comments O2 Sat Justin (calc) (test code = O2 Sat 63.0 40.0-70.0 Justin (calc)) [facility] PlanoVpemvgaCHFGFJUEI4508-96-21 06:27:00 Test Item Value Reference Range Interpretation Comments Temp Justin (test code = Temp Justin) 37.0 [place] 087233-02-27 06:27:00 Test Item Value Reference Range Interpretation Comments Lactic Acid Lvl (test code = Lactic 0.5 0.5-2.2 Acid Lvl) [facility] PlanoFwlkyraNJJLWDTOJ7227-29-37 06:27:00 Test Item Value Reference Range Interpretation Comments TSH (test code = TSH) 0.403 0.360-3.740 [place] 222913-02-27 06:27:00 Test Item Value Reference Range Interpretation Comments WBC X 10x3 (test code = WBC X 10x3) 5.9 3.7-10.4 [place] 222913-02-27 06:27:00 Test Item Value Reference Range Interpretation Comments RBC X 10x6 (test code = RBC X 10x6) 3.67 4.20-5.40 [place] 222913-02-27 06:27:00 Test Item Value Reference Range Interpretation Comments Hgb (test code = Hgb) 10.7 12.0-16.0 [place] [address]-02-27 06:27:00 Test Item Value Reference Range Interpretation Comments Hct (test code = Hct) 33.5 36.0-48.0 [place] 222913-02-27 06:27:00 Test Item Value Reference Range Interpretation Comments MCV (test code = MCV) 91.4 80.0-98.0 [place] 222913-02-27 06:27:00 Test Item Value Reference Range Interpretation Comments MCH (test code = MCH) 29.3 pg 27.0-31.0 [facility] CenterWvsqjzzVOBZYWUFQY2207-19-11 06:27:00 Test Item Value Reference Range Interpretation Comments MCHC (test code = MCHC) 32.0 32.0-36.0 [facility] CenterRunbonpQFWPKFWFTR0834-86-78 06:27:00 Test Item Value Reference Range Interpretation Comments RDW (test code = RDW) 13.7 11.5-14.5 [place] 222913-02-27 06:27:00 Test Item Value Reference Range Interpretation Comments Platelet (test code = Platelet) 139 133-450 [place] 222913-02-27 06:27:00 Test Item Value Reference Range Interpretation Comments MPV (test code = MPV) 7.5 7.4-10.4 [place] 222913-02-27 06:27:00 Test Item Value Reference Range Interpretation Comments ACT (TEG) Rapid (test code = ACT (TEG) 121 s 86-118 Rapid) [facility] CenterOpbobjuWCBHRNAEWP7949-14-85 06:27:00 Test Item Value Reference Range Interpretation Comments Split Point Rapid (test code = Split 0.6 min Point Rapid) [facility] CenterBwittzgRWQVFTHEYK1338-35-62 06:27:00 Test Item Value Reference Range Interpretation Comments R-time Rapid (test code = R-time 0.8 min 0.4-0.7 Rapid) [place] 222913-02-27 06:27:00 Test Item Value Reference Range Interpretation Comments K-time Rapid (test code = K-time 0.8 min 0.6-2.3 Rapid) [place] 222913-02-27 06:27:00 Test Item Value Reference Range Interpretation Comments Angle Rapid (test code = Angle 79 degrees 64-80 Rapid) [place] 222913-02-27 06:27:00 Test Item Value Reference Range Interpretation Comments Max Amplitude Rapid (test code = Max 71 mm 52-71 Amplitude Rapid) [facility] CenterDsjwkyhKNTYYSPCYM5540-13-94 06:27:00 Test Item Value Reference Range Interpretation Comments G-value Rapid (test code = G-value 12.1 5.0-11.6 Rapid) [facility] CenterNjydrlmWQLWGXHNTT9570-02-46 06:27:00 Test Item Value Reference Range Interpretation Comments Estimated % Lysis Rapid 0.0 See_Comment [Au tomated message] The (test code = Estimated syste m which generated % Lysis Rapid) this result t ransmitted reference range : <=7.5. The reference r christiano was not used to int erpret this result as normal/abnormal . [facility] CenterGpigwelDNVQKQVTXC8468-51-89 06:27:00 Test Item Value Reference Range Interpretation Comments RBC Morph (test code = Normal (11/27/22 12:27 RBC Morph) AM) [facility] CenterQkfvzrhQUIKVUERRV7375-65-63 06:27:00 Test Item Value Reference Range Interpretation Comments Plt Morph (test code = Normal (11/27/22 12:27 Plt Morph) AM) [facility] CenterWnrzzxbKMRYGNTHDA6774-28-11 06:27:00 Test Item Value Reference Range Interpretation Comments Segs (test code = Segs) 60.1 45.0-75.0 [place] 222913-02-27 06:27:00 Test Item Value Reference Range Interpretation Comments Lymphocytes (test code = Lymphocytes) 23.9 20.0-40.0 [facility] CenterQxdyyfnBDNVYGTYDS7298-46-73 06:27:00 Test Item Value Reference Range Interpretation Comments Monocytes (test code = Monocytes) 9.6 2.0-12.0 [facility] CenterLwyfivvUTCDTKYXPJ2408-41-14 06:27:00 Test Item Value Reference Range Interpretation Comments Eosinophils (test code = 5.2 See_Comment [A utomated message] The Eosinophils) system which ge nerated this result tra nsmitted reference range : <=4.0. The reference r christiano was not used to int erpret this result as normal/abnormal . [facility] CenterEfivamgOOOQCMCEYO8971-33-11 06:27:00 Test Item Value Reference Range Interpretation Comments Basophils (test code = 1.2 See_Comment [Aut omated message] The Basophils) system which ge nerated this result tra nsmitted reference range : <=1.0. The reference r christiano was not used to int erpret this result as normal/abnormal . [place] 222913-02-27 06:27:00 Test Item Value Reference Range Interpretation Comments Neutrophils # (test code = Neutrophils 3.5 1.5-8.1 #) [place] 222913-02-27 06:27:00 Test Item Value Reference Range Interpretation Comments Lymphocytes # (test code = Lymphocytes 1.4 1.0-5.5 #) [place] 222913-02-27 06:27:00 Test Item Value Reference Range Interpretation Comments Monocytes # (test code 0.6 See_Comment [Aut omated message] The = Monocytes #) system which generated this result tra nsmitted reference range : <=0.8. The reference r christiano was not used to int erpret this result as normal/abnormal . [place] 08489-02-27 06:27:00 Test Item Value Reference Range Interpretation Comments Eosinophils # (test code 0.3 See_Comment [A utomated message] The = Eosinophils #) system whic h generated this result tra nsmitted reference range : <=0.5. The reference r christiano was not used to int erpret this result as normal/abnormal . [place] 222913-02-27 06:27:00 Test Item Value Reference Range Interpretation Comments Basophils # (test code 0.1 See_Comment [Aut omated message] The = Basophils #) system which generated this result tra nsmitted reference range : <=0.2. The reference r christiano was not used to int erpret this result as normal/abnormal . [facility]zt[facility]oLWTBPKHYZW5635[facility]46-76 06:27:00 Test Item Value Reference Range Interpretation Comments ACT (TEG) Rapid (test code = ACT (TEG) 121 s 86-118 Rapid) [place] 08[address]-02-27 06:27:00 Test Item Value Reference Range Interpretation Comments Split Point Rapid (test code = Split 0.6 min Point Rapid) [place] 08489-02-27 06:27:00 Test Item Value Reference Range Interpretation Comments R-time Rapid (test code = R-time 0.8 min 0.4-0.7 Rapid) [place] [address]489-02-27 06:27:00 Test Item Value Reference Range Interpretation Comments K-time Rapid (test code = K-time 0.8 min 0.6-2.3 Rapid) [place] 08489-02-27 06:27:00 Test Item Value Reference Range Interpretation Comments Angle Rapid (test code = Angle 79 degrees 64-80 Rapid) [place] 222913-02-27 06:27:00 Test Item Value Reference Range Interpretation Comments Max Amplitude Rapid (test code = Max 71 mm 52-71 Amplitude Rapid) [place] 08489-02-27 06:27:00 Test Item Value Reference Range Interpretation Comments G-value Rapid (test code = G-value 12.1 5.0-11.6 Rapid) [place] 222913-02-27 06:27:00 Test Item Value Reference Range Interpretation Comments Estimated % Lysis Rapid 0.0 See_Comment [Au tomated message] The (test code = Estimated syste m which generated % Lysis Rapid) this result t ransmitted reference range : <=7.5. The reference r christiano was not used to int erpret this result as normal/abnormal . [facility] CenterQtrxyttFQHNMYDZVW8563-84-90 06:27:00 Test Item Value Reference Range Interpretation Comments RBC Morph (test code = Normal (11/27/22 12:27 RBC Morph) AM) [place] [address]-02-27 06:27:00 Test Item Value Reference Range Interpretation Comments Plt Morph (test code = Normal (11/27/22 12:27 Plt Morph) AM) [place] [address]489-02-27 06:27:00 Test Item Value Reference Range Interpretation Comments Basophils # (test code 0.1 See_Comment [Aut omated message] The = Basophils #) system which generated this result tra nsmitted reference range : <=0.2. The reference r christiano was not used to int erpret this result as normal/abnormal . [facility] [id number] 06:27:00 Test Item Value Reference Range Interpretation Comments Glucose Lvl (test code = Glucose Lvl) 85 70-99 [facility] [id number] 06:27:00 Test Item Value Reference Range Interpretation Comments BUN (test code = BUN) 28 7-22 [place] 678383-02-27 06:27:00 Test Item Value Reference Range Interpretation Comments Creatinine Lvl (test code = Creatinine 2.19 0.50-1.40 Lvl) [place] 678383-02-27 06:27:00 Test Item Value Reference Range Interpretation Comments Sodium Lvl (test code = Sodium Lvl) 143 135-145 [place] 678383-02-27 06:27:00 Test Item Value Reference Range Interpretation Comments Potassium Lvl (test code = Potassium 4.3 3.5-5.1 Lvl) [place] 678383-02-27 06:27:00 Test Item Value Reference Range Interpretation Comments Chloride Lvl (test code = Chloride Lvl) 110 95-109 [place] 678383-02-27 06:27:00 Test Item Value Reference Range Interpretation Comments CO2 (test code = CO2) -32 [place] 678383-02-27 06:27:00 Test Item Value Reference Range Interpretation Comments Calcium Lvl (test code = Calcium Lvl) 8.1 8.5-10.5 [place] 678383-02-27 06:27:00 Test Item Value Reference Range Interpretation Comments AGAP (test code = AGAP) 10.3 10.0-20.0 [place] 678383-02-27 06:27:00 Test Item Value Reference Range Interpretation Comments eGFR (test code = eGFR) 22 [place] 678383-02-27 06:27:00 Test Item Value Reference Range Interpretation Comments Total Protein (test code = Total 6.6 6.4-8.4 Protein) [facility]2023-02-27 06:27:00 Test Item Value Reference Range Interpretation Comments Albumin Lvl (test code = Albumin Lvl) 3.0 3.5-5.0 [facility]2023-02-27 06:27:00 Test Item Value Reference Range Interpretation Comments Globulin (test code = Globulin) 3.6 2.7-4.2 [place] 678383-02-27 06:27:00 Test Item Value Reference Range Interpretation Comments A/G Ratio (test code = A/G Ratio) 0.8 1 0.7-1.6 [place] 678383-02-27 06:27:00 Test Item Value Reference Range Interpretation Comments ALANINE AMINOTRANSFERASE 21 See_Comment [A utomated message] (test code = ALANINE The sys tem which AMINOTRANSFERASE) generated this result transmitted ref erence range: <=65. Th e reference range was not used to int erpret this result as normal/abnormal . [place] 678383-02-27 06:27:00 Test Item Value Reference Range Interpretation Comments AST (test code = AST) 17 See_Comment [Auto mated message] The system which ge nerated this result transmit sheba reference range : <=37. The reference range was not used to interpr et this result as edy l/abnormal. [facility] Falls[facility] [id number] 06:27:00 Test Item Value Reference Range Interpretation Comments Alk Phos (test code = Alk Phos) 84 39-136 [facility] Falls[facility] CKSQJ7867-86-54 06:27:00 Test Item Value Reference Range Interpretation Comments Bili Total (test code = Bili Total) 0.3 0.2-1.3 [place] [address]-02-27 06:27:00 Test Item Value Reference Range Interpretation Comments Bili Direct (test code no gt See_Comment [Aut omated message] The = Bili Direct) system which generated this result tra nsmitted reference range : <=0.3. The reference r christiano was not used to int erpret this result as edy l/abnormal. [facility] Falls[facility] [id number] 06:27:00 Test Item Value Reference Range Interpretation Comments Bili Indirect Unable to See_Comment [Automated (test code = Bili Calculate message] T he system Indirect) which generated this result transmitted reference range : <=1.0. The reference range was not used to interpret this result as normal/abnormal . [facility] [id number] 06:27:00 Test Item Value Reference Range Interpretation Comments Lactic Acid Lvl (test code = Lactic 0.5 0.5-2.2 Acid Lvl) [place] [address]57-02-27 06:27:00 Test Item Value Reference Range Interpretation Comments Total Protein (test code = Total 6.6 6.4-8.4 Protein) [place] 310[address]-02-27 06:27:00 Test Item Value Reference Range Interpretation Comments Albumin Lvl (test code = Albumin Lvl) 3.0 3.5-5.0 [place] 310[address]-02-27 06:27:00 Test Item Value Reference Range Interpretation Comments Globulin (test code = Globulin) 3.6 2.7-4.2 [place] [address]-02-27 06:27:00 Test Item Value Reference Range Interpretation Comments A/G Ratio (test code = A/G Ratio) 0.8 1 0.7-1.6 [facility] FallsIdaampiZVFAPMHWE1119-13-93 06:27:00 Test Item Value Reference Range Interpretation Comments ALANINE AMINOTRANSFERASE 21 See_Comment [A utomated message] (test code = ALANINE The sys tem which AMINOTRANSFERASE) generated this result transmitted ref erence range: <=65. Th e reference range was not used to int erpret this result as normal/abnormal . [facility] FallsPaoodkaYAMRLHJJF9204-48-14 06:27:00 Test Item Value Reference Range Interpretation Comments AST (test code = AST) 17 See_Comment [Auto mated message] The system which ge nerated this result transmit sheba reference range : <=37. The reference range was not used to interpr et this result as edy l/abnormal. [facility] FallsVtoqcmdKXNHBJPOF4257-21-64 06:27:00 Test Item Value Reference Range Interpretation Comments Alk Phos (test code = Alk Phos) 84 39-136 [facility] FallsWdwkltsKFJEKNIVV6102-86-58 06:27:00 Test Item Value Reference Range Interpretation Comments Bili Total (test code = Bili Total) 0.3 0.2-1.3 [facility] FallsXjnbowcAULZVFHOO7044-64-18 06:27:00 Test Item Value Reference Range Interpretation Comments Bili Direct (test code no gt See_Comment [Aut omated message] The = Bili Direct) system which generated this result tra nsmitted reference range : <=0.3. The reference r christiano was not used to int erpret this result as edy l/abnormal. [facility] FallsSnusszwCZWBYKSDG0752-61-09 06:27:00 Test Item Value Reference Range Interpretation Comments Bili Indirect Unable to See_Comment [Automated (test code = Bili Calculate message] T he system Indirect) which generated this result transmitted reference range : <=1.0. The reference range was not used to interpret this result as normal/abnormal . [facility] FallsXgdnikcYFWBHCFRY9472-42-93 06:27:00 Test Item Value Reference Range Interpretation Comments pH Justin (test code = pH Justin) 7.29 1 7.28-7.42 [facility] FallsIsdeykkDLGIPHKRA9408-10-53 06:27:00 Test Item Value Reference Range Interpretation Comments pCO2 Justin (test code = pCO2 Justin) 65 38-52 [facility]anoWiippahSRBHODWYA4221-45-02 06:27:00 Test Item Value Reference Range Interpretation Comments pO2 Justin (test code = pO2 Justin) 37 20-49 [facility] PlanoPdplvteGPCCCBDLD4295-48-87 06:27:00 Test Item Value Reference Range Interpretation Comments HCO3 Justin (test code = HCO3 Justin) 31 22-26 [facility] [place]anoXpghhgtFHVXJLGUV1202-04-17 06:27:00 Test Item Value Reference Range Interpretation Comments BE Justin (test code = BE Justin) 3 -2-2 [facility] PlanoRwfidxuSNHOZMAFY5402-50-32 06:27:00 Test Item Value Reference Range Interpretation Comments O2 Sat Justin (calc) (test code = O2 Sat 63.0 40.0-70.0 Justin (calc)) [facility] PlanoDxbstxaQYCBLWMZQ2678-06-73 06:27:00 Test Item Value Reference Range Interpretation Comments Temp Justin (test code = Temp Justin) 37.0 [facility] PlanoAnuvyigZBQPARWUW8924-08-44 06:27:00 Test Item Value Reference Range Interpretation Comments Lactic Acid Lvl (test code = Lactic 0.5 0.5-2.2 Acid Lvl) [facility] PlanoMvowmbpOLDDVQFSO0771-50-68 06:27:00 Test Item Value Reference Range Interpretation Comments TSH (test code = TSH) 0.403 0.360-3.740 [facility] CenterDkiuruzEAZGUYZNHP0847-84-89 06:27:00 Test Item Value Reference Range Interpretation Comments WBC X 10x3 (test code = WBC X 10x3) 5.9 3.7-10.4 [facility] CenterTjojrqrOYCLXHLDHN1299-64-82 06:27:00 Test Item Value Reference Range Interpretation Comments RBC X 10x6 (test code = RBC X 10x6) 3.67 4.20-5.40 [facility] CenterEixprjkAAQSXFZOBO0843-75-89 06:27:00 Test Item Value Reference Range Interpretation Comments Hgb (test code = Hgb) 10.7 12.0-16.0 [place] 222913-02-27 06:27:00 Test Item Value Reference Range Interpretation Comments Hct (test code = Hct) 33.5 36.0-48.0 [facility] CenterFvkqzfhPYEGJZZJSW2755-34-61 06:27:00 Test Item Value Reference Range Interpretation Comments MCV (test code = MCV) 91.4 80.0-98.0 [place] 222913-02-27 06:27:00 Test Item Value Reference Range Interpretation Comments MCH (test code = MCH) 29.3 pg 27.0-31.0 [facility] CenterLhpdglaJTJERUZDBS3612-42-75 06:27:00 Test Item Value Reference Range Interpretation Comments MCHC (test code = MCHC) 32.0 32.0-36.0 [facility] CenterUxtilywXSQPLIDJEM0359-49-55 06:27:00 Test Item Value Reference Range Interpretation Comments RDW (test code = RDW) 13.7 11.5-14.5 [place] 222913-02-27 06:27:00 Test Item Value Reference Range Interpretation Comments Platelet (test code = Platelet) 139 133-450 [facility] CenterAuubtrlANBQJZAYXM3418-90-65 06:27:00 Test Item Value Reference Range Interpretation Comments MPV (test code = MPV) 7.5 7.4-10.4 [facility] CenterQfrwpwvPJKZBMFMZA2373-39-84 06:27:00 Test Item Value Reference Range Interpretation Comments ACT (TEG) Rapid (test code = ACT (TEG) 121 s 86-118 Rapid) [facility] CenterOdfihsqMEYNNPKALK0392-78-54 06:27:00 Test Item Value Reference Range Interpretation Comments Split Point Rapid (test code = Split 0.6 min Point Rapid) [facility] CenterKyywfkxGFHLUOEJZF7130-94-98 06:27:00 Test Item Value Reference Range Interpretation Comments R-time Rapid (test code = R-time 0.8 min 0.4-0.7 Rapid) [facility] CenterFbgvayfYDHFNUPRGV3189-59-50 06:27:00 Test Item Value Reference Range Interpretation Comments K-time Rapid (test code = K-time 0.8 min 0.6-2.3 Rapid) [place] 222913-02-27 06:27:00 Test Item Value Reference Range Interpretation Comments Angle Rapid (test code = Angle 79 degrees 64-80 Rapid) [facility] CenterAynmxzdOTTLAJTQMM4821-35-03 06:27:00 Test Item Value Reference Range Interpretation Comments Max Amplitude Rapid (test code = Max 71 mm 52-71 Amplitude Rapid) [place] 222913-02-27 06:27:00 Test Item Value Reference Range Interpretation Comments G-value Rapid (test code = G-value 12.1 5.0-11.6 Rapid) [place] 222913-02-27 06:27:00 Test Item Value Reference Range Interpretation Comments Estimated % Lysis Rapid 0.0 See_Comment [Au tomated message] The (test code = Estimated syste m which generated % Lysis Rapid) this result t ransmitted reference range : <=7.5. The reference r christiano was not used to int erpret this result as normal/abnormal . [facility] CenterWpctlsjEMZMRAJFQK1186-41-44 06:27:00 Test Item Value Reference Range Interpretation Comments RBC Morph (test code = Normal (11/27/22 12:27 RBC Morph) AM) [facility] CenterAnvcetfZMCKHBFLFO2241-46-95 06:27:00 Test Item Value Reference Range Interpretation Comments Plt Morph (test code = Normal (11/27/22 12:27 Plt Morph) AM) [facility] CenterVctzzsiEZPDEHZPWO7952-33-65 06:27:00 Test Item Value Reference Range Interpretation Comments Segs (test code = Segs) 60.1 45.0-75.0 [facility] CenterXjmqpwdQDFDMUGGED9516-27-07 06:27:00 Test Item Value Reference Range Interpretation Comments Lymphocytes (test code = Lymphocytes) 23.9 20.0-40.0 [facility] CenterKzjfkiwKJSHIJCJRL9060-51-53 06:27:00 Test Item Value Reference Range Interpretation Comments Monocytes (test code = Monocytes) 9.6 2.0-12.0 [facility] CenterSxbelfrRMHTEJBAIK5752-57-94 06:27:00 Test Item Value Reference Range Interpretation Comments Eosinophils (test code = 5.2 See_Comment [A utomated message] The Eosinophils) system which ge nerated this result tra nsmitted reference range : <=4.0. The reference r christiano was not used to int erpret this result as normal/abnormal . [facility] CenterZoucfevFXVZZFTZZH6278-38-44 06:27:00 Test Item Value Reference Range Interpretation Comments Basophils (test code = 1.2 See_Comment [Aut omated message] The Basophils) system which ge nerated this result tra nsmitted reference range : <=1.0. The reference r christiano was not used to int erpret this result as normal/abnormal . [facility] CenterMejsthrEOKPRDYHDI8820-58-46 06:27:00 Test Item Value Reference Range Interpretation Comments Neutrophils # (test code = Neutrophils 3.5 1.5-8.1 #) [place] 222913-02-27 06:27:00 Test Item Value Reference Range Interpretation Comments Lymphocytes # (test code = Lymphocytes 1.4 1.0-5.5 #) [place] 222913-02-27 06:27:00 Test Item Value Reference Range Interpretation Comments Monocytes # (test code 0.6 See_Comment [Aut omated message] The = Monocytes #) system which generated this result tra nsmitted reference range : <=0.8. The reference r christiano was not used to int erpret this result as normal/abnormal . [facility] CenterZvjxpibQEDDWIAZVU6020-05-40 06:27:00 Test Item Value Reference Range Interpretation Comments Eosinophils # (test code 0.3 See_Comment [A utomated message] The = Eosinophils #) system whic h generated this result tra nsmitted reference range : <=0.5. The reference r christiano was not used to int erpret this result as normal/abnormal . [place] 222913-02-27 06:27:00 Test Item Value Reference Range Interpretation Comments Basophils # (test code 0.1 See_Comment [Aut omated message] The = Basophils #) system which generated this result tra nsmitted reference range : <=0.2. The reference r christiano was not used to int erpret this result as normal/abnormal . [place] 222913-02-27 06:27:00 Test Item Value Reference Range Interpretation Comments ACT (TEG) Rapid (test code = ACT (TEG) 121 s 86-118 Rapid) [place] 222913-02-27 06:27:00 Test Item Value Reference Range Interpretation Comments Split Point Rapid (test code = Split 0.6 min Point Rapid) [place] 222913-02-27 06:27:00 Test Item Value Reference Range Interpretation Comments R-time Rapid (test code = R-time 0.8 min 0.4-0.7 Rapid) [place] [address]-02-27 06:27:00 Test Item Value Reference Range Interpretation Comments K-time Rapid (test code = K-time 0.8 min 0.6-2.3 Rapid) [place] 08489-02-27 06:27:00 Test Item Value Reference Range Interpretation Comments Angle Rapid (test code = Angle 79 degrees 64-80 Rapid) [place] [address]-02-27 06:27:00 Test Item Value Reference Range Interpretation Comments Max Amplitude Rapid (test code = Max 71 mm 52-71 Amplitude Rapid) [facility] CenterFfwocfyOXHPBHTZZG2998-94-67 06:27:00 Test Item Value Reference Range Interpretation Comments G-value Rapid (test code = G-value 12.1 5.0-11.6 Rapid) [facility] CenterLfqxzwtOHYDVEJFVR6494-33-54 06:27:00 Test Item Value Reference Range Interpretation Comments Estimated % Lysis Rapid 0.0 See_Comment [Au tomated message] The (test code = Estimated syste m which generated % Lysis Rapid) this result t ransmitted reference range : <=7.5. The reference r christiano was not used to int erpret this result as normal/abnormal . [facility] CenterYcypygdLEMEGBMSDT2773-25-39 06:27:00 Test Item Value Reference Range Interpretation Comments RBC Morph (test code = Normal (11/27/22 12:27 RBC Morph) AM) [place] 222913-02-27 06:27:00 Test Item Value Reference Range Interpretation Comments Plt Morph (test code = Normal (11/27/22 12:27 Plt Morph) AM) [facility] CenterHoocqoaATHZGMURKJ7854-94-06 06:27:00 Test Item Value Reference Range Interpretation Comments Basophils # (test code 0.1 See_Comment [Aut omated message] The = Basophils #) system which generated this result tra nsmitted reference range : <=0.2. The reference r christiano was not used to int erpret this result as normal/abnormal . [facility] PlanoSilnerxOWGIGNVNI7605-45-86 13:17:00 Test Item Value Reference Range Interpretation Comments Glucose Lvl (test code = Glucose Lvl) 65 70-99 [facility] PlanoLqdhmdsTPEVGHUGA5919-38-53 13:17:00 Test Item Value Reference Range Interpretation Comments BUN (test code = BUN) 39 7-22 [facility] PlanoClyavqoRYCSQZONU6625-26-33 13:17:00 Test Item Value Reference Range Interpretation Comments Creatinine Lvl (test code = Creatinine 2.03 0.50-1.40 Lvl) [facility] PlanoSlvkvggHYWYUXYOW5177-19-50 13:17:00 Test Item Value Reference Range Interpretation Comments Sodium Lvl (test code = Sodium Lvl) 139 135-145 [place] 087233-02-22 13:17:00 Test Item Value Reference Range Interpretation Comments Potassium Lvl (test code = Potassium 4.7 3.5-5.1 Lvl) [facility] PlanoQfgzjhkNTCPVPOMU7119-00-85 13:17:00 Test Item Value Reference Range Interpretation Comments Chloride Lvl (test code = Chloride Lvl) 107 95-109 [facility] PlanoQowpjdhOQDWQWVME7458-65-17 13:17:00 Test Item Value Reference Range Interpretation Comments CO2 (test code = CO2) 26 24-32 [facility] PlanoMcyssacVEVFSAFRV0627-07-90 13:17:00 Test Item Value Reference Range Interpretation Comments Calcium Lvl (test code = Calcium Lvl) 8.1 8.5-10.5 [facility] PlanoSrupehpJIOBSKUAR5544-43-90 13:17:00 Test Item Value Reference Range Interpretation Comments AGAP (test code = AGAP) 10.7 10.0-20.0 [facility] PlanoGvyobvlKUBRHHKPT7918-08-99 13:17:00 Test Item Value Reference Range Interpretation Comments eGFR (test code = eGFR) 24 [facility] PlanoEciqhhkEOZFUHSTZ5444-52-82 13:17:00 Test Item Value Reference Range Interpretation Comments Ca Ion WB (test code = Ca Ion WB) 1.06 1.05-1.25 [facility] PlanoFmbwipxABDEUSPNQ0738-73-40 13:17:00 Test Item Value Reference Range Interpretation Comments Ca Ion at pH 7.4 WB (test code = Ca Ion 1.03 1.05-1.25 at pH 7.4 WB) [facility] PlanoXopiaroNYWLGZPNO8076-21-20 13:17:00 Test Item Value Reference Range Interpretation Comments Magnesium Lvl (test code = Magnesium 2.7 1.8-2.4 Lvl) [facility] PlanoXazjbpkNYADXMFMX6083-52-80 13:17:00 Test Item Value Reference Range Interpretation Comments Phosphorus (test code = Phosphorus) 3.9 2.5-4.5 [facility] CenterCdijyviAKJUBYXFRF5089-36-23 13:17:00 Test Item Value Reference Range Interpretation Comments Segs (test code = Segs) 54.4 45.0-75.0 [place] 222913-02-22 13:17:00 Test Item Value Reference Range Interpretation Comments Lymphocytes (test code = Lymphocytes) 29.3 20.0-40.0 [place] 222913-02-22 13:17:00 Test Item Value Reference Range Interpretation Comments Monocytes (test code = Monocytes) 10.5 2.0-12.0 [place] 222913-02-22 13:17:00 Test Item Value Reference Range Interpretation Comments Eosinophils (test code = 5.0 See_Comment [A utomated message] The Eosinophils) system which ge nerated this result tra nsmitted reference range : <=4.0. The reference r christiano was not used to int erpret this result as normal/abnormal . [place] 222913-02-22 13:17:00 Test Item Value Reference Range Interpretation Comments Basophils (test code = 0.8 See_Comment [Aut omated message] The Basophils) system which ge nerated this result tra nsmitted reference range : <=1.0. The reference r christiano was not used to int erpret this result as normal/abnormal . [place] 222913-02-22 13:17:00 Test Item Value Reference Range Interpretation Comments Neutrophils # (test code = Neutrophils 4.1 1.5-8.1 #) [place] 222913-02-22 13:17:00 Test Item Value Reference Range Interpretation Comments Lymphocytes # (test code = Lymphocytes 2.2 1.0-5.5 #) [place] 222913-02-22 13:17:00 Test Item Value Reference Range Interpretation Comments Monocytes # (test code 0.8 See_Comment [Aut omated message] The = Monocytes #) system which generated this result tra nsmitted reference range : <=0.8. The reference r christiano was not used to int erpret this result as normal/abnormal . [place] 222913-02-22 13:17:00 Test Item Value Reference Range Interpretation Comments Eosinophils # (test code 0.4 See_Comment [A utomated message] The = Eosinophils #) system whic h generated this result tra nsmitted reference range : <=0.5. The reference r christiano was not used to int erpret this result as normal/abnormal . [place] 222913-02-22 13:17:00 Test Item Value Reference Range Interpretation Comments Basophils # (test code 0.1 See_Comment [Aut omated message] The = Basophils #) system which generated this result tra nsmitted reference range : <=0.2. The reference r christiano was not used to int erpret this result as normal/abnormal . [place] 222913-02-22 13:17:00 Test Item Value Reference Range Interpretation Comments WBC (test code = WBC) 7.5 3.7-10.4 [place] 222913-02-22 13:17:00 Test Item Value Reference Range Interpretation Comments RBC (test code = RBC) 3.30 4.20-5.40 [place] 222913-02-22 13:17:00 Test Item Value Reference Range Interpretation Comments Hgb (test code = Hgb) 9.9 12.0-16.0 [place] 222913-02-22 13:17:00 Test Item Value Reference Range Interpretation Comments Hct (test code = Hct) 30.3 36.0-48.0 [place] 222913-02-22 13:17:00 Test Item Value Reference Range Interpretation Comments MCV (test code = MCV) 91.8 80.0-98.0 [place] 222913-02-22 13:17:00 Test Item Value Reference Range Interpretation Comments MCH (test code = MCH) 30.0 pg 27.0-31.0 [facility]wuSBNQWYSWRA8452-87-94 13:17:00 Test Item Value Reference Range Interpretation Comments MCHC (test code = MCHC) 32.7 32.0-36.0 [place] 222913-02-22 13:17:00 Test Item Value Reference Range Interpretation Comments RDW (test code = RDW) 14.4 11.5-14.5 [facility] CenterYwfsnyeEKQKJBPYDZ8149-37-90 13:17:00 Test Item Value Reference Range Interpretation Comments Platelet (test code = Platelet) 136 133-450 [facility] CenterJnqcvjfPLZVPBTVXQ8394-44-49 13:17:00 Test Item Value Reference Range Interpretation Comments MPV (test code = MPV) 8.7 7.4-10.4 [place] 087233-02-22 13:17:00 Test Item Value Reference Range Interpretation Comments Glucose Lvl (test code = Glucose Lvl) 65 70-99 [facility]JafsvgpYBFKULOGG2037-98-34 13:17:00 Test Item Value Reference Range Interpretation Comments BUN (test code = BUN) 39 7-22 [place] 087233-02-22 13:17:00 Test Item Value Reference Range Interpretation Comments Creatinine Lvl (test code = Creatinine 2.03 0.50-1.40 Lvl) [facility]anoVuwohzgNNBQSXUQR8463-21-63 13:17:00 Test Item Value Reference Range Interpretation Comments Sodium Lvl (test code = Sodium Lvl) 139 135-145 [place] 087233-02-22 13:17:00 Test Item Value Reference Range Interpretation Comments Potassium Lvl (test code = Potassium 4.7 3.5-5.1 Lvl) [facility]anoHcvianxFUMZDOQZD7717-86-85 13:17:00 Test Item Value Reference Range Interpretation Comments Chloride Lvl (test code = Chloride Lvl) 107 95-109 [place] 087233-02-22 13:17:00 Test Item Value Reference Range Interpretation Comments CO2 (test code = CO2) 26 24-32 [facility]anoCdqrqueGRSJNLOJN8065-83-19 13:17:00 Test Item Value Reference Range Interpretation Comments Calcium Lvl (test code = Calcium Lvl) 8.1 8.5-10.5 [facility] PlanoNdeotwyKYGJOALCA8023-68-55 13:17:00 Test Item Value Reference Range Interpretation Comments AGAP (test code = AGAP) 10.7 10.0-20.0 [facility]anoXgwxjtiIYAUVSPZQ1880-89-25 13:17:00 Test Item Value Reference Range Interpretation Comments eGFR (test code = eGFR) 24 [facility]anoPryfjjgNCQUDTQIO7727-68-26 13:17:00 Test Item Value Reference Range Interpretation Comments Ca Ion WB (test code = Ca Ion WB) 1.06 1.05-1.25 [facility]anoHpydlttJHPQAGGAB2072-52-05 13:17:00 Test Item Value Reference Range Interpretation Comments Ca Ion at pH 7.4 WB (test code = Ca Ion 1.03 1.05-1.25 at pH 7.4 WB) [facility]anoPgxssyeIDDPAXCFB7886-20-77 13:17:00 Test Item Value Reference Range Interpretation Comments Magnesium Lvl (test code = Magnesium 2.7 1.8-2.4 Lvl) [facility]anoYjvzajqUTAINSJJS4204-23-32 13:17:00 Test Item Value Reference Range Interpretation Comments Phosphorus (test code = Phosphorus) 3.9 2.5-4.5 [place] [address]-02-22 13:17:00 Test Item Value Reference Range Interpretation Comments Segs (test code = Segs) 54.4 45.0-75.0 [place] 222913-02-22 13:17:00 Test Item Value Reference Range Interpretation Comments Lymphocytes (test code = Lymphocytes) 29.3 20.0-40.0 [place] [address]-02-22 13:17:00 Test Item Value Reference Range Interpretation Comments Monocytes (test code = Monocytes) 10.5 2.0-12.0 [place] 222913-02-22 13:17:00 Test Item Value Reference Range Interpretation Comments Eosinophils (test code = 5.0 See_Comment [A utomated message] The Eosinophils) system which ge nerated this result tra nsmitted reference range : <=4.0. The reference r christiano was not used to int erpret this result as normal/abnormal . [place] [address]-02-22 13:17:00 Test Item Value Reference Range Interpretation Comments Basophils (test code = 0.8 See_Comment [Aut omated message] The Basophils) system which ge nerated this result tra nsmitted reference range : <=1.0. The reference r christiano was not used to int erpret this result as normal/abnormal . [place] 222913-02-22 13:17:00 Test Item Value Reference Range Interpretation Comments Neutrophils # (test code = Neutrophils 4.1 1.5-8.1 #) [place] 222913-02-22 13:17:00 Test Item Value Reference Range Interpretation Comments Lymphocytes # (test code = Lymphocytes 2.2 1.0-5.5 #) [place] [address]-02-22 13:17:00 Test Item Value Reference Range Interpretation Comments Monocytes # (test code 0.8 See_Comment [Aut omated message] The = Monocytes #) system which generated this result tra nsmitted reference range : <=0.8. The reference r christiano was not used to int erpret this result as normal/abnormal . [place] 222913-02-22 13:17:00 Test Item Value Reference Range Interpretation Comments Eosinophils # (test code 0.4 See_Comment [A utomated message] The = Eosinophils #) system whic h generated this result tra nsmitted reference range : <=0.5. The reference r christiano was not used to int erpret this result as normal/abnormal . [facility] CenterAmmihrlWLYFTBUYJE7567-79-41 13:17:00 Test Item Value Reference Range Interpretation Comments Basophils # (test code 0.1 See_Comment [Aut omated message] The = Basophils #) system which generated this result tra nsmitted reference range : <=0.2. The reference r christiano was not used to int erpret this result as normal/abnormal . [facility] CenterZsytpoyKTXZVZIOSZ0743-59-49 13:17:00 Test Item Value Reference Range Interpretation Comments WBC (test code = WBC) 7.5 3.7-10.4 [place] 222913-02-22 13:17:00 Test Item Value Reference Range Interpretation Comments RBC (test code = RBC) 3.30 4.20-5.40 [place] 222913-02-22 13:17:00 Test Item Value Reference Range Interpretation Comments Hgb (test code = Hgb) 9.9 12.0-16.0 [place] 222913-02-22 13:17:00 Test Item Value Reference Range Interpretation Comments Hct (test code = Hct) 30.3 36.0-48.0 [place] 222913-02-22 13:17:00 Test Item Value Reference Range Interpretation Comments MCV (test code = MCV) 91.8 80.0-98.0 [place] 222913-02-22 13:17:00 Test Item Value Reference Range Interpretation Comments MCH (test code = MCH) 30.0 pg 27.0-31.0 [place] 222913-02-22 13:17:00 Test Item Value Reference Range Interpretation Comments MCHC (test code = MCHC) 32.7 32.0-36.0 [place] 222913-02-22 13:17:00 Test Item Value Reference Range Interpretation Comments RDW (test code = RDW) 14.4 11.5-14.5 [place] 222913-02-22 13:17:00 Test Item Value Reference Range Interpretation Comments Platelet (test code = Platelet) 136 133-450 [facility] CenterXomyeknFJWPMLAACA2223-41-70 13:17:00 Test Item Value Reference Range Interpretation Comments MPV (test code = MPV) 8.7 7.4-10.4 [place] 678383-02-22 13:17:00 Test Item Value Reference Range Interpretation Comments Glucose Lvl (test code = Glucose Lvl) 65 70-99 [place] 678383-02-22 13:17:00 Test Item Value Reference Range Interpretation Comments BUN (test code = BUN) 39 7-22 [place] 678383-02-22 13:17:00 Test Item Value Reference Range Interpretation Comments Creatinine Lvl (test code = Creatinine 2.03 0.50-1.40 Lvl) [place] 678383-02-22 13:17:00 Test Item Value Reference Range Interpretation Comments Sodium Lvl (test code = Sodium Lvl) 139 135-145 [place] 678383-02-22 13:17:00 Test Item Value Reference Range Interpretation Comments Potassium Lvl (test code = Potassium 4.7 3.5-5.1 Lvl) [facility]2023-02-22 13:17:00 Test Item Value Reference Range Interpretation Comments Chloride Lvl (test code = Chloride Lvl) 107 95-109 [place] 678383-02-22 13:17:00 Test Item Value Reference Range Interpretation Comments CO2 (test code = CO2) 26 24-32 [place] 678383-02-22 13:17:00 Test Item Value Reference Range Interpretation Comments Calcium Lvl (test code = Calcium Lvl) 8.1 8.5-10.5 [place] 678383-02-22 13:17:00 Test Item Value Reference Range Interpretation Comments AGAP (test code = AGAP) 10.7 10.0-20.0 [place] 678383-02-22 13:17:00 Test Item Value Reference Range Interpretation Comments eGFR (test code = eGFR) 24 [place] 678383-02-22 13:17:00 Test Item Value Reference Range Interpretation Comments Magnesium Lvl (test code = Magnesium 2.7 1.8-2.4 Lvl) [place] 678383-02-22 13:17:00 Test Item Value Reference Range Interpretation Comments Phosphorus (test code = Phosphorus) 3.9 2.5-4.5 [place] 087233-02-22 13:17:00 Test Item Value Reference Range Interpretation Comments Glucose Lvl (test code = Glucose Lvl) 65 70-99 [facility]anoRkssgyjONVAAQAIO8348-21-85 13:17:00 Test Item Value Reference Range Interpretation Comments BUN (test code = BUN) 39 7-22 [facility]anoLsubfpbXFXFKLTYL8728-68-78 13:17:00 Test Item Value Reference Range Interpretation Comments Creatinine Lvl (test code = Creatinine 2.03 0.50-1.40 Lvl) [facility]anoHpstaucWADNMHHHM4563-83-31 13:17:00 Test Item Value Reference Range Interpretation Comments Sodium Lvl (test code = Sodium Lvl) 139 135-145 [place] 087233-02-22 13:17:00 Test Item Value Reference Range Interpretation Comments Potassium Lvl (test code = Potassium 4.7 3.5-5.1 Lvl) [facility] PlanoLsgqdepAMDAKYTHS6413-10-52 13:17:00 Test Item Value Reference Range Interpretation Comments Chloride Lvl (test code = Chloride Lvl) 107 95-109 [facility] PlanoDzqhlagYYVCHTXZX4569-49-80 13:17:00 Test Item Value Reference Range Interpretation Comments CO2 (test code = CO2) 26 24-32 [facility] PlanoUpjbhmyVAQDHFFUE6414-69-41 13:17:00 Test Item Value Reference Range Interpretation Comments Calcium Lvl (test code = Calcium Lvl) 8.1 8.5-10.5 [facility] PlanoOrdrrcrWXTABIFSY1877-84-14 13:17:00 Test Item Value Reference Range Interpretation Comments AGAP (test code = AGAP) 10.7 10.0-20.0 [facility] PlanoUjbceqgHBTMFHKWC2212-68-41 13:17:00 Test Item Value Reference Range Interpretation Comments eGFR (test code = eGFR) 24 [facility] PlanoQlfetlnGLWWKTOHP5495-98-86 13:17:00 Test Item Value Reference Range Interpretation Comments Ca Ion WB (test code = Ca Ion WB) 1.06 1.05-1.25 [place] 087233-02-22 13:17:00 Test Item Value Reference Range Interpretation Comments Ca Ion at pH 7.4 WB (test code = Ca Ion 1.03 1.05-1.25 at pH 7.4 WB) [facility] PlanoTvsvmjaZURSBQBJJ4790-03-47 13:17:00 Test Item Value Reference Range Interpretation Comments Magnesium Lvl (test code = Magnesium 2.7 1.8-2.4 Lvl) [facility] PlanoEqdmcarSAWZBGKOJ5282-74-49 13:17:00 Test Item Value Reference Range Interpretation Comments Phosphorus (test code = Phosphorus) 3.9 2.5-4.5 [facility] CenterJprknrzFPEOMFBDNW0810-20-75 13:17:00 Test Item Value Reference Range Interpretation Comments Segs (test code = Segs) 54.4 45.0-75.0 [facility] CenterGqgcnwnOGTWMEEZRW4932-84-42 13:17:00 Test Item Value Reference Range Interpretation Comments Lymphocytes (test code = Lymphocytes) 29.3 20.0-40.0 [facility] CenterYgwwghkPEQYCXKLNR8926-12-55 13:17:00 Test Item Value Reference Range Interpretation Comments Monocytes (test code = Monocytes) 10.5 2.0-12.0 [facility] CenterYmrsvdtIAOCIKNSYL1933-70-70 13:17:00 Test Item Value Reference Range Interpretation Comments Eosinophils (test code = 5.0 See_Comment [A utomated message] The Eosinophils) system which ge nerated this result tra nsmitted reference range : <=4.0. The reference r christiano was not used to int erpret this result as normal/abnormal . [facility] CenterXsbogdjDHAOXOBNNJ3635-16-24 13:17:00 Test Item Value Reference Range Interpretation Comments Basophils (test code = 0.8 See_Comment [Aut omated message] The Basophils) system which ge nerated this result tra nsmitted reference range : <=1.0. The reference r christiano was not used to int erpret this result as normal/abnormal . [facility] CenterImhlmfpNFHPJJLBZD4157-54-96 13:17:00 Test Item Value Reference Range Interpretation Comments Neutrophils # (test code = Neutrophils 4.1 1.5-8.1 #) [facility] CenterVavxuvnOMXLABDEQG9728-32-64 13:17:00 Test Item Value Reference Range Interpretation Comments Lymphocytes # (test code = Lymphocytes 2.2 1.0-5.5 #) [facility] CenterZwzgomeYINXZPJLYY5917-80-29 13:17:00 Test Item Value Reference Range Interpretation Comments Monocytes # (test code 0.8 See_Comment [Aut omated message] The = Monocytes #) system which generated this result tra nsmitted reference range : <=0.8. The reference r christiano was not used to int erpret this result as normal/abnormal . [facility] CenterWzdjzvzBUPGBBYNNL4905-04-92 13:17:00 Test Item Value Reference Range Interpretation Comments Eosinophils # (test code 0.4 See_Comment [A utomated message] The = Eosinophils #) system whic h generated this result tra nsmitted reference range : <=0.5. The reference r christiano was not used to int erpret this result as normal/abnormal . [facility] CenterCjxwvdhSKCXVGMLTI9027-64-60 13:17:00 Test Item Value Reference Range Interpretation Comments Basophils # (test code 0.1 See_Comment [Aut omated message] The = Basophils #) system which generated this result tra nsmitted reference range : <=0.2. The reference r christiano was not used to int erpret this result as normal/abnormal . [facility] CenterQattkvhNKRASMEOOJ8401-71-70 13:17:00 Test Item Value Reference Range Interpretation Comments WBC (test code = WBC) 7.5 3.7-10.4 [facility] CenterLfdchuqMIZDVNKONB3042-26-35 13:17:00 Test Item Value Reference Range Interpretation Comments RBC (test code = RBC) 3.30 4.20-5.40 [place] 222913-02-22 13:17:00 Test Item Value Reference Range Interpretation Comments Hgb (test code = Hgb) 9.9 12.0-16.0 [place] 222913-02-22 13:17:00 Test Item Value Reference Range Interpretation Comments Hct (test code = Hct) 30.3 36.0-48.0 [facility] CenterAzmbfvgPZRNBOOIVB3517-03-98 13:17:00 Test Item Value Reference Range Interpretation Comments MCV (test code = MCV) 91.8 80.0-98.0 [place] 222913-02-22 13:17:00 Test Item Value Reference Range Interpretation Comments MCH (test code = MCH) 30.0 pg 27.0-31.0 [place] 222913-02-22 13:17:00 Test Item Value Reference Range Interpretation Comments MCHC (test code = MCHC) 32.7 32.0-36.0 [place] 222913-02-22 13:17:00 Test Item Value Reference Range Interpretation Comments RDW (test code = RDW) 14.4 11.5-14.5 [address]02-22 13:17:00 Test Item Value Reference Range Interpretation Comments Platelet (test code = Platelet) 136 133-450 [place] 222913-02-22 13:17:00 Test Item Value Reference Range Interpretation Comments MPV (test code = MPV) 8.7 7.4-10.4 [place] [address]-02-22 13:17:00 Test Item Value Reference Range Interpretation Comments Segs (test code = Segs) 54.4 45.0-75.0 [place] 222913-02-22 13:17:00 Test Item Value Reference Range Interpretation Comments Lymphocytes (test code = Lymphocytes) 29.3 20.0-40.0 [place] [address]-02-22 13:17:00 Test Item Value Reference Range Interpretation Comments Monocytes (test code = Monocytes) 10.5 2.0-12.0 [place] 222913-02-22 13:17:00 Test Item Value Reference Range Interpretation Comments Eosinophils (test code = 5.0 See_Comment [A utomated message] The Eosinophils) system which ge nerated this result tra nsmitted reference range : <=4.0. The reference r christiano was not used to int erpret this result as normal/abnormal . [facility] CenterWqxmiptVJHVALYJIN8888-99-22 13:17:00 Test Item Value Reference Range Interpretation Comments Basophils (test code = 0.8 See_Comment [Aut omated message] The Basophils) system which ge nerated this result tra nsmitted reference range : <=1.0. The reference r christiano was not used to int erpret this result as normal/abnormal . [place] 222913-02-22 13:17:00 Test Item Value Reference Range Interpretation Comments Neutrophils # (test code = Neutrophils 4.1 1.5-8.1 #) [place] 222913-02-22 13:17:00 Test Item Value Reference Range Interpretation Comments Lymphocytes # (test code = Lymphocytes 2.2 1.0-5.5 #) [place] [address]-02-22 13:17:00 Test Item Value Reference Range Interpretation Comments Monocytes # (test code 0.8 See_Comment [Aut omated message] The = Monocytes #) system which generated this result tra nsmitted reference range : <=0.8. The reference r christiano was not used to int erpret this result as normal/abnormal . [place] 222913-02-22 13:17:00 Test Item Value Reference Range Interpretation Comments Eosinophils # (test code 0.4 See_Comment [A utomated message] The = Eosinophils #) system whic h generated this result tra nsmitted reference range : <=0.5. The reference r christiano was not used to int erpret this result as normal/abnormal . [place] 222913-02-22 13:17:00 Test Item Value Reference Range Interpretation Comments Basophils # (test code 0.1 See_Comment [Aut omated message] The = Basophils #) system which generated this result tra nsmitted reference range : <=0.2. The reference r christiano was not used to int erpret this result as normal/abnormal . [place] 222913-02-22 13:17:00 Test Item Value Reference Range Interpretation Comments WBC (test code = WBC) 7.5 3.7-10.4 [place] 222913-02-22 13:17:00 Test Item Value Reference Range Interpretation Comments RBC (test code = RBC) 3.30 4.20-5.40 [place] 222913-02-22 13:17:00 Test Item Value Reference Range Interpretation Comments Hgb (test code = Hgb) 9.9 12.0-16.0 [place] 222913-02-22 13:17:00 Test Item Value Reference Range Interpretation Comments Hct (test code = Hct) 30.3 36.0-48.0 [place] 222913-02-22 13:17:00 Test Item Value Reference Range Interpretation Comments MCV (test code = MCV) 91.8 80.0-98.0 [place] [address]-02-22 13:17:00 Test Item Value Reference Range Interpretation Comments MCH (test code = MCH) 30.0 pg 27.0-31.0 [place] 222913-02-22 13:17:00 Test Item Value Reference Range Interpretation Comments MCHC (test code = MCHC) 32.7 32.0-36.0 [place] 222913-02-22 13:17:00 Test Item Value Reference Range Interpretation Comments RDW (test code = RDW) 14.4 11.5-14.5 [place] [address]-02-22 13:17:00 Test Item Value Reference Range Interpretation Comments Platelet (test code = Platelet) 136 133-450 [place] 222913-02-22 13:17:00 Test Item Value Reference Range Interpretation Comments MPV (test code = MPV) 8.7 7.4-10.4 [place] 295153-02-22 13:17:00 Test Item Value Reference Range Interpretation Comments Ca Ion WB (test code = Ca Ion WB) 1.06 1.05-1.25 [place] 295153-02-22 13:17:00 Test Item Value Reference Range Interpretation Comments Ca Ion at pH 7.4 WB (test code = Ca Ion 1.03 1.05-1.25 at pH 7.4 WB) [place] 678383-02-22 13:17:00 Test Item Value Reference Range Interpretation Comments Glucose Lvl (test code = Glucose Lvl) 65 70-99 [place] 678383-02-22 13:17:00 Test Item Value Reference Range Interpretation Comments BUN (test code = BUN) 39 7-22 [place] 678383-02-22 13:17:00 Test Item Value Reference Range Interpretation Comments Creatinine Lvl (test code = Creatinine 2.03 0.50-1.40 Lvl) [place] 678383-02-22 13:17:00 Test Item Value Reference Range Interpretation Comments Sodium Lvl (test code = Sodium Lvl) 139 135-145 [place] 678383-02-22 13:17:00 Test Item Value Reference Range Interpretation Comments Potassium Lvl (test code = Potassium 4.7 3.5-5.1 Lvl) [place] 678383-02-22 13:17:00 Test Item Value Reference Range Interpretation Comments Chloride Lvl (test code = Chloride Lvl) 107 95-109 [place] 678383-02-22 13:17:00 Test Item Value Reference Range Interpretation Comments CO2 (test code = CO2) 26 24-32 [place] 678383-02-22 13:17:00 Test Item Value Reference Range Interpretation Comments Calcium Lvl (test code = Calcium Lvl) 8.1 8.5-10.5 [place] 678383-02-22 13:17:00 Test Item Value Reference Range Interpretation Comments AGAP (test code = AGAP) 10.7 10.0-20.0 [place] 678383-02-22 13:17:00 Test Item Value Reference Range Interpretation Comments eGFR (test code = eGFR) 24 [place] 678383-02-22 13:17:00 Test Item Value Reference Range Interpretation Comments Magnesium Lvl (test code = Magnesium 2.7 1.8-2.4 Lvl) [place] 678383-02-22 13:17:00 Test Item Value Reference Range Interpretation Comments Phosphorus (test code = Phosphorus) 3.9 2.5-4.5 [place] 087233-02-22 13:17:00 Test Item Value Reference Range Interpretation Comments Glucose Lvl (test code = Glucose Lvl) 65 70-99 [place] 087233-02-22 13:17:00 Test Item Value Reference Range Interpretation Comments BUN (test code = BUN) 39 7-22 [place] 087233-02-22 13:17:00 Test Item Value Reference Range Interpretation Comments Creatinine Lvl (test code = Creatinine 2.03 0.50-1.40 Lvl) [place] 087233-02-22 13:17:00 Test Item Value Reference Range Interpretation Comments Sodium Lvl (test code = Sodium Lvl) 139 135-145 [place] 087233-02-22 13:17:00 Test Item Value Reference Range Interpretation Comments Potassium Lvl (test code = Potassium 4.7 3.5-5.1 Lvl) [place] 087233-02-22 13:17:00 Test Item Value Reference Range Interpretation Comments Chloride Lvl (test code = Chloride Lvl) 107 95-109 [place] [address]-02-22 13:17:00 Test Item Value Reference Range Interpretation Comments CO2 (test code = CO2) 26 24-32 [place] 087233-02-22 13:17:00 Test Item Value Reference Range Interpretation Comments Calcium Lvl (test code = Calcium Lvl) 8.1 8.5-10.5 [place] 087233-02-22 13:17:00 Test Item Value Reference Range Interpretation Comments AGAP (test code = AGAP) 10.7 10.0-20.0 [place] 087233-02-22 13:17:00 Test Item Value Reference Range Interpretation Comments eGFR (test code = eGFR) 24 [facility]anoKiplsafOLTXBIEVO3943-22-78 13:17:00 Test Item Value Reference Range Interpretation Comments Ca Ion WB (test code = Ca Ion WB) 1.06 1.05-1.25 [place] 087233-02-22 13:17:00 Test Item Value Reference Range Interpretation Comments Ca Ion at pH 7.4 WB (test code = Ca Ion 1.03 1.05-1.25 at pH 7.4 WB) [facility]anoRgbxyfoRGVIKHOAZ9653-87-35 13:17:00 Test Item Value Reference Range Interpretation Comments Magnesium Lvl (test code = Magnesium 2.7 1.8-2.4 Lvl) [facility] PlanoQbrcanpSNENZHMIF8257-65-57 13:17:00 Test Item Value Reference Range Interpretation Comments Phosphorus (test code = Phosphorus) 3.9 2.5-4.5 [place] 222913-02-22 13:17:00 Test Item Value Reference Range Interpretation Comments Segs (test code = Segs) 54.4 45.0-75.0 [place] 222913-02-22 13:17:00 Test Item Value Reference Range Interpretation Comments Lymphocytes (test code = Lymphocytes) 29.3 20.0-40.0 [place] 222913-02-22 13:17:00 Test Item Value Reference Range Interpretation Comments Monocytes (test code = Monocytes) 10.5 2.0-12.0 [place] [address]-02-22 13:17:00 Test Item Value Reference Range Interpretation Comments Eosinophils (test code = 5.0 See_Comment [A utomated message] The Eosinophils) system which ge nerated this result tra nsmitted reference range : <=4.0. The reference r christiano was not used to int erpret this result as normal/abnormal . [place] 222913-02-22 13:17:00 Test Item Value Reference Range Interpretation Comments Basophils (test code = 0.8 See_Comment [Aut omated message] The Basophils) system which ge nerated this result tra nsmitted reference range : <=1.0. The reference r christiano was not used to int erpret this result as normal/abnormal . [place] 222913-02-22 13:17:00 Test Item Value Reference Range Interpretation Comments Neutrophils # (test code = Neutrophils 4.1 1.5-8.1 #) [place] 222913-02-22 13:17:00 Test Item Value Reference Range Interpretation Comments Lymphocytes # (test code = Lymphocytes 2.2 1.0-5.5 #) [place] 222913-02-22 13:17:00 Test Item Value Reference Range Interpretation Comments Monocytes # (test code 0.8 See_Comment [Aut omated message] The = Monocytes #) system which generated this result tra nsmitted reference range : <=0.8. The reference r christiano was not used to int erpret this result as normal/abnormal . [place] 222913-02-22 13:17:00 Test Item Value Reference Range Interpretation Comments Eosinophils # (test code 0.4 See_Comment [A utomated message] The = Eosinophils #) system whic h generated this result tra nsmitted reference range : <=0.5. The reference r christiano was not used to int erpret this result as normal/abnormal . [place] 222913-02-22 13:17:00 Test Item Value Reference Range Interpretation Comments Basophils # (test code 0.1 See_Comment [Aut omated message] The = Basophils #) system which generated this result tra nsmitted reference range : <=0.2. The reference r christiano was not used to int erpret this result as normal/abnormal . [place] 222913-02-22 13:17:00 Test Item Value Reference Range Interpretation Comments WBC (test code = WBC) 7.5 3.7-10.4 [place] [address]-02-22 13:17:00 Test Item Value Reference Range Interpretation Comments RBC (test code = RBC) 3.30 4.20-5.40 [place] [address]-02-22 13:17:00 Test Item Value Reference Range Interpretation Comments Hgb (test code = Hgb) 9.9 12.0-16.0 [place] [address]-02-22 13:17:00 Test Item Value Reference Range Interpretation Comments Hct (test code = Hct) 30.3 36.0-48.0 [place] 222913-02-22 13:17:00 Test Item Value Reference Range Interpretation Comments MCV (test code = MCV) 91.8 80.0-98.0 [place] 222913-02-22 13:17:00 Test Item Value Reference Range Interpretation Comments MCH (test code = MCH) 30.0 pg 27.0-31.0 [place] 222913-02-22 13:17:00 Test Item Value Reference Range Interpretation Comments MCHC (test code = MCHC) 32.7 32.0-36.0 [place] 222913-02-22 13:17:00 Test Item Value Reference Range Interpretation Comments RDW (test code = RDW) 14.4 11.5-14.5 [place] 222913-02-22 13:17:00 Test Item Value Reference Range Interpretation Comments Platelet (test code = Platelet) 136 133-450 [place] 222913-02-22 13:17:00 Test Item Value Reference Range Interpretation Comments MPV (test code = MPV) 8.7 7.4-10.4 [place] 222913-02-22 13:17:00 Test Item Value Reference Range Interpretation Comments Segs (test code = Segs) 54.4 45.0-75.0 [place] 222913-02-22 13:17:00 Test Item Value Reference Range Interpretation Comments Lymphocytes (test code = Lymphocytes) 29.3 20.0-40.0 [place] 222913-02-22 13:17:00 Test Item Value Reference Range Interpretation Comments Monocytes (test code = Monocytes) 10.5 2.0-12.0 [place] [address]-02-22 13:17:00 Test Item Value Reference Range Interpretation Comments Eosinophils (test code = 5.0 See_Comment [A utomated message] The Eosinophils) system which ge nerated this result tra nsmitted reference range : <=4.0. The reference r christiano was not used to int erpret this result as normal/abnormal . [place] 222913-02-22 13:17:00 Test Item Value Reference Range Interpretation Comments Basophils (test code = 0.8 See_Comment [Aut omated message] The Basophils) system which ge nerated this result tra nsmitted reference range : <=1.0. The reference r christiano was not used to int erpret this result as normal/abnormal . [place] 222913-02-22 13:17:00 Test Item Value Reference Range Interpretation Comments Neutrophils # (test code = Neutrophils 4.1 1.5-8.1 #) [facility]OM8407[facility] 13:17:00 Test Item Value Reference Range Interpretation Comments Lymphocytes # (test code = Lymphocytes 2.2 1.0-5.5 #) [place] 222913-02-22 13:17:00 Test Item Value Reference Range Interpretation Comments Monocytes # (test code 0.8 See_Comment [Aut omated message] The = Monocytes #) system which generated this result tra nsmitted reference range : <=0.8. The reference r christiano was not used to int erpret this result as normal/abnormal . [place] 222913-02-22 13:17:00 Test Item Value Reference Range Interpretation Comments Eosinophils # (test code 0.4 See_Comment [A utomated message] The = Eosinophils #) system whic h generated this result tra nsmitted reference range : <=0.5. The reference r christiano was not used to int erpret this result as normal/abnormal . [facility] CenterWsksjqyNZAGLNPZBN6119-46-63 13:17:00 Test Item Value Reference Range Interpretation Comments Basophils # (test code 0.1 See_Comment [Aut omated message] The = Basophils #) system which generated this result tra nsmitted reference range : <=0.2. The reference r christiano was not used to int erpret this result as normal/abnormal . [place] 222913-02-22 13:17:00 Test Item Value Reference Range Interpretation Comments WBC (test code = WBC) 7.5 3.7-10.4 [place] 222913-02-22 13:17:00 Test Item Value Reference Range Interpretation Comments RBC (test code = RBC) 3.30 4.20-5.40 [place] [address]-02-22 13:17:00 Test Item Value Reference Range Interpretation Comments Hgb (test code = Hgb) 9.9 12.0-16.0 [place] [address]-02-22 13:17:00 Test Item Value Reference Range Interpretation Comments Hct (test code = Hct) 30.3 36.0-48.0 [place] 222913-02-22 13:17:00 Test Item Value Reference Range Interpretation Comments MCV (test code = MCV) 91.8 80.0-98.0 [place] 222913-02-22 13:17:00 Test Item Value Reference Range Interpretation Comments MCH (test code = MCH) 30.0 pg 27.0-31.0 [place] 222913-02-22 13:17:00 Test Item Value Reference Range Interpretation Comments MCHC (test code = MCHC) 32.7 32.0-36.0 [place] 222913-02-22 13:17:00 Test Item Value Reference Range Interpretation Comments RDW (test code = RDW) 14.4 11.5-14.5 [facility] CenterLwjwtxcLILIVNNTDY0886-82-51 13:17:00 Test Item Value Reference Range Interpretation Comments Platelet (test code = Platelet) 136 133-450 [facility] CenterZqnnnquUFAXLUWFHJ4452-78-79 13:17:00 Test Item Value Reference Range Interpretation Comments MPV (test code = MPV) 8.7 7.4-10.4 [facility]2023-02-22 13:17:00 Test Item Value Reference Range Interpretation Comments Ca Ion WB (test code = Ca Ion WB) 1.06 1.05-1.25 [facility]2023-02-22 13:17:00 Test Item Value Reference Range Interpretation Comments Ca Ion at pH 7.4 WB (test code = Ca Ion 1.03 1.05-1.25 at pH 7.4 WB) [facility]2023-02-22 13:17:00 Test Item Value Reference Range Interpretation Comments Glucose Lvl (test code = Glucose Lvl) 65 70-99 [facility]2023-02-22 13:17:00 Test Item Value Reference Range Interpretation Comments BUN (test code = BUN) 39 7-22 [facility]2023-02-22 13:17:00 Test Item Value Reference Range Interpretation Comments Creatinine Lvl (test code = Creatinine 2.03 0.50-1.40 Lvl) [facility]2023-02-22 13:17:00 Test Item Value Reference Range Interpretation Comments Sodium Lvl (test code = Sodium Lvl) 139 135-145 [place] 678383-02-22 13:17:00 Test Item Value Reference Range Interpretation Comments Potassium Lvl (test code = Potassium 4.7 3.5-5.1 Lvl) [place] 678383-02-22 13:17:00 Test Item Value Reference Range Interpretation Comments Chloride Lvl (test code = Chloride Lvl) 107 95-109 [place] 678383-02-22 13:17:00 Test Item Value Reference Range Interpretation Comments CO2 (test code = CO2) 26 24-32 [place] 678383-02-22 13:17:00 Test Item Value Reference Range Interpretation Comments Calcium Lvl (test code = Calcium Lvl) 8.1 8.5-10.5 [place] 678383-02-22 13:17:00 Test Item Value Reference Range Interpretation Comments AGAP (test code = AGAP) 10.7 10.0-20.0 [place] 678383-02-22 13:17:00 Test Item Value Reference Range Interpretation Comments eGFR (test code = eGFR) 24 [place] 678383-02-22 13:17:00 Test Item Value Reference Range Interpretation Comments Magnesium Lvl (test code = Magnesium 2.7 1.8-2.4 Lvl) [facility]2023-02-22 13:17:00 Test Item Value Reference Range Interpretation Comments Phosphorus (test code = Phosphorus) 3.9 2.5-4.5 [place] 087233-02-22 13:17:00 Test Item Value Reference Range Interpretation Comments Glucose Lvl (test code = Glucose Lvl) 65 70-99 [place] [address]-02-22 13:17:00 Test Item Value Reference Range Interpretation Comments BUN (test code = BUN) 39 7-22 [place] 087233-02-22 13:17:00 Test Item Value Reference Range Interpretation Comments Creatinine Lvl (test code = Creatinine 2.03 0.50-1.40 Lvl) [place] 087233-02-22 13:17:00 Test Item Value Reference Range Interpretation Comments Sodium Lvl (test code = Sodium Lvl) 139 135-145 [address]02-22 13:17:00 Test Item Value Reference Range Interpretation Comments Potassium Lvl (test code = Potassium 4.7 3.5-5.1 Lvl) [facility]wneoddHSYCZONGW1169-64-45 13:17:00 Test Item Value Reference Range Interpretation Comments Chloride Lvl (test code = Chloride Lvl) 107 95-109 [facility]anoTbdrjcxSFDYTTRHY9924-99-28 13:17:00 Test Item Value Reference Range Interpretation Comments CO2 (test code = CO2) 26 24-32 [facility] PlanoTgtileaAMGGHBNYX9006-87-66 13:17:00 Test Item Value Reference Range Interpretation Comments Calcium Lvl (test code = Calcium Lvl) 8.1 8.5-10.5 [facility]anoBtmhpsyTBASXGQYW4457-43-52 13:17:00 Test Item Value Reference Range Interpretation Comments AGAP (test code = AGAP) 10.7 10.0-20.0 [facility]anoYihydcjMDCBJDHNW5869-42-59 13:17:00 Test Item Value Reference Range Interpretation Comments eGFR (test code = eGFR) 24 [facility]anoIhvsomgEAJEYSFRP4542-85-02 13:17:00 Test Item Value Reference Range Interpretation Comments Ca Ion WB (test code = Ca Ion WB) 1.06 1.05-1.25 [facility]anoSvlppmgIWMSRYZIR5493-95-14 13:17:00 Test Item Value Reference Range Interpretation Comments Ca Ion at pH 7.4 WB (test code = Ca Ion 1.03 1.05-1.25 at pH 7.4 WB) [facility]anoEfphvivIXKUSZBGB1100-95-38 13:17:00 Test Item Value Reference Range Interpretation Comments Magnesium Lvl (test code = Magnesium 2.7 1.8-2.4 Lvl) [facility]anoDgvmyfqPKDDTVTMN1945-74-10 13:17:00 Test Item Value Reference Range Interpretation Comments Phosphorus (test code = Phosphorus) 3.9 2.5-4.5 [place] 222913-02-22 13:17:00 Test Item Value Reference Range Interpretation Comments Segs (test code = Segs) 54.4 45.0-75.0 [place] 222913-02-22 13:17:00 Test Item Value Reference Range Interpretation Comments Lymphocytes (test code = Lymphocytes) 29.3 20.0-40.0 [place] 222913-02-22 13:17:00 Test Item Value Reference Range Interpretation Comments Monocytes (test code = Monocytes) 10.5 2.0-12.0 [place] 222913-02-22 13:17:00 Test Item Value Reference Range Interpretation Comments Eosinophils (test code = 5.0 See_Comment [A utomated message] The Eosinophils) system which ge nerated this result tra nsmitted reference range : <=4.0. The reference r christiano was not used to int erpret this result as normal/abnormal . [place] [address]-02-22 13:17:00 Test Item Value Reference Range Interpretation Comments Basophils (test code = 0.8 See_Comment [Aut omated message] The Basophils) system which ge nerated this result tra nsmitted reference range : <=1.0. The reference r christiano was not used to int erpret this result as normal/abnormal . [place] 222913-02-22 13:17:00 Test Item Value Reference Range Interpretation Comments Neutrophils # (test code = Neutrophils 4.1 1.5-8.1 #) [place] [address]-02-22 13:17:00 Test Item Value Reference Range Interpretation Comments Lymphocytes # (test code = Lymphocytes 2.2 1.0-5.5 #) [place] [address]-02-22 13:17:00 Test Item Value Reference Range Interpretation Comments Monocytes # (test code 0.8 See_Comment [Aut omated message] The = Monocytes #) system which generated this result tra nsmitted reference range : <=0.8. The reference r christiano was not used to int erpret this result as normal/abnormal . [place] 222913-02-22 13:17:00 Test Item Value Reference Range Interpretation Comments Eosinophils # (test code 0.4 See_Comment [A utomated message] The = Eosinophils #) system whic h generated this result tra nsmitted reference range : <=0.5. The reference r christiano was not used to int erpret this result as normal/abnormal . [place] [address]-02-22 13:17:00 Test Item Value Reference Range Interpretation Comments Basophils # (test code 0.1 See_Comment [Aut omated message] The = Basophils #) system which generated this result tra nsmitted reference range : <=0.2. The reference r christiano was not used to int erpret this result as normal/abnormal . [place] 222913-02-22 13:17:00 Test Item Value Reference Range Interpretation Comments WBC (test code = WBC) 7.5 3.7-10.4 [place] [address]-02-22 13:17:00 Test Item Value Reference Range Interpretation Comments RBC (test code = RBC) 3.30 4.20-5.40 [place] [address]-02-22 13:17:00 Test Item Value Reference Range Interpretation Comments Hgb (test code = Hgb) 9.9 12.0-16.0 [place] [address]-02-22 13:17:00 Test Item Value Reference Range Interpretation Comments Hct (test code = Hct) 30.3 36.0-48.0 [place] [address]-02-22 13:17:00 Test Item Value Reference Range Interpretation Comments MCV (test code = MCV) 91.8 80.0-98.0 [place] [address]-02-22 13:17:00 Test Item Value Reference Range Interpretation Comments MCH (test code = MCH) 30.0 pg 27.0-31.0 [place] 222913-02-22 13:17:00 Test Item Value Reference Range Interpretation Comments MCHC (test code = MCHC) 32.7 32.0-36.0 [place] 222913-02-22 13:17:00 Test Item Value Reference Range Interpretation Comments RDW (test code = RDW) 14.4 11.5-14.5 [place] 222913-02-22 13:17:00 Test Item Value Reference Range Interpretation Comments Platelet (test code = Platelet) 136 133-450 [place] 222913-02-22 13:17:00 Test Item Value Reference Range Interpretation Comments MPV (test code = MPV) 8.7 7.4-10.4 [place] 222913-02-22 13:17:00 Test Item Value Reference Range Interpretation Comments Segs (test code = Segs) 54.4 45.0-75.0 [place] [address]-02-22 13:17:00 Test Item Value Reference Range Interpretation Comments Lymphocytes (test code = Lymphocytes) 29.3 20.0-40.0 [place] 222913-02-22 13:17:00 Test Item Value Reference Range Interpretation Comments Monocytes (test code = Monocytes) 10.5 2.0-12.0 [place] 222913-02-22 13:17:00 Test Item Value Reference Range Interpretation Comments Eosinophils (test code = 5.0 See_Comment [A utomated message] The Eosinophils) system which ge nerated this result tra nsmitted reference range : <=4.0. The reference r christiano was not used to int erpret this result as normal/abnormal . [place] 222913-02-22 13:17:00 Test Item Value Reference Range Interpretation Comments Basophils (test code = 0.8 See_Comment [Aut omated message] The Basophils) system which ge nerated this result tra nsmitted reference range : <=1.0. The reference r christiano was not used to int erpret this result as normal/abnormal . [place] 222913-02-22 13:17:00 Test Item Value Reference Range Interpretation Comments Neutrophils # (test code = Neutrophils 4.1 1.5-8.1 #) [place] 222913-02-22 13:17:00 Test Item Value Reference Range Interpretation Comments Lymphocytes # (test code = Lymphocytes 2.2 1.0-5.5 #) [place] 222913-02-22 13:17:00 Test Item Value Reference Range Interpretation Comments Monocytes # (test code 0.8 See_Comment [Aut omated message] The = Monocytes #) system which generated this result tra nsmitted reference range : <=0.8. The reference r christiano was not used to int erpret this result as normal/abnormal . [place] 222913-02-22 13:17:00 Test Item Value Reference Range Interpretation Comments Eosinophils # (test code 0.4 See_Comment [A utomated message] The = Eosinophils #) system whic h generated this result tra nsmitted reference range : <=0.5. The reference r christiano was not used to int erpret this result as normal/abnormal . [place] 222913-02-22 13:17:00 Test Item Value Reference Range Interpretation Comments Basophils # (test code 0.1 See_Comment [Aut omated message] The = Basophils #) system which generated this result tra nsmitted reference range : <=0.2. The reference r christiano was not used to int erpret this result as normal/abnormal . [facility] CenterUtcskttCUVYUZMQHS1879-56-52 13:17:00 Test Item Value Reference Range Interpretation Comments WBC (test code = WBC) 7.5 3.7-10.4 [place] 222913-02-22 13:17:00 Test Item Value Reference Range Interpretation Comments RBC (test code = RBC) 3.30 4.20-5.40 [place] 222913-02-22 13:17:00 Test Item Value Reference Range Interpretation Comments Hgb (test code = Hgb) 9.9 12.0-16.0 [place] 222913-02-22 13:17:00 Test Item Value Reference Range Interpretation Comments Hct (test code = Hct) 30.3 36.0-48.0 [facility] CenterYaxggjvVNXDBPQBTQ4725-50-09 13:17:00 Test Item Value Reference Range Interpretation Comments MCV (test code = MCV) 91.8 80.0-98.0 [facility] CenterJiwvytkDVKVEWEPLU9800-27-76 13:17:00 Test Item Value Reference Range Interpretation Comments MCH (test code = MCH) 30.0 pg 27.0-31.0 [facility] CenterZlvxabuEHUGSLARAC4079-58-21 13:17:00 Test Item Value Reference Range Interpretation Comments MCHC (test code = MCHC) 32.7 32.0-36.0 [facility] CenterKzjndhyFGQPHISRAM4685-48-65 13:17:00 Test Item Value Reference Range Interpretation Comments RDW (test code = RDW) 14.4 11.5-14.5 [facility] CenterHyqdkbuLMZXLEBBET9936-00-29 13:17:00 Test Item Value Reference Range Interpretation Comments Platelet (test code = Platelet) 136 133-450 [facility] CenterGnyzlbsWIZMDVMDDA5846-61-97 13:17:00 Test Item Value Reference Range Interpretation Comments MPV (test code = MPV) 8.7 7.4-10.4 [facility]PARATHY[facility]ID NUGMJBO3723-47-98 13:17:00 Test Item Value Reference Range Interpretation Comments Ca Ion WB (test code = Ca Ion WB) 1.06 1.05-1.25 [facility]2023-02-22 13:17:00 Test Item Value Reference Range Interpretation Comments Ca Ion at pH 7.4 WB (test code = Ca Ion 1.03 1.05-1.25 at pH 7.4 WB) [place] 678383-02-22 13:17:00 Test Item Value Reference Range Interpretation Comments Glucose Lvl (test code = Glucose Lvl) 65 70-99 [place] 678383-02-22 13:17:00 Test Item Value Reference Range Interpretation Comments BUN (test code = BUN) 39 7-22 [place] 678383-02-22 13:17:00 Test Item Value Reference Range Interpretation Comments Creatinine Lvl (test code = Creatinine 2.03 0.50-1.40 Lvl) [place] 678383-02-22 13:17:00 Test Item Value Reference Range Interpretation Comments Sodium Lvl (test code = Sodium Lvl) 139 135-145 [place] 678383-02-22 13:17:00 Test Item Value Reference Range Interpretation Comments Potassium Lvl (test code = Potassium 4.7 3.5-5.1 Lvl) [place] 678383-02-22 13:17:00 Test Item Value Reference Range Interpretation Comments Chloride Lvl (test code = Chloride Lvl) 107 95-109 [place] 678383-02-22 13:17:00 Test Item Value Reference Range Interpretation Comments CO2 (test code = CO2) 26 24-32 [place] 678383-02-22 13:17:00 Test Item Value Reference Range Interpretation Comments Calcium Lvl (test code = Calcium Lvl) 8.1 8.5-10.5 [place] 678383-02-22 13:17:00 Test Item Value Reference Range Interpretation Comments AGAP (test code = AGAP) 10.7 10.0-20.0 [place] 678383-02-22 13:17:00 Test Item Value Reference Range Interpretation Comments eGFR (test code = eGFR) 24 [place] 678383-02-22 13:17:00 Test Item Value Reference Range Interpretation Comments Magnesium Lvl (test code = Magnesium 2.7 1.8-2.4 Lvl) [place] 678383-02-22 13:17:00 Test Item Value Reference Range Interpretation Comments Phosphorus (test code = Phosphorus) 3.9 2.5-4.5 [facility]anoTymgyszVGZIBVWWC1464-42-25 13:17:00 Test Item Value Reference Range Interpretation Comments Glucose Lvl (test code = Glucose Lvl) 65 70-99 [facility]anoEdvgusmYSPSSYDCK2348-33-18 13:17:00 Test Item Value Reference Range Interpretation Comments BUN (test code = BUN) 39 7-22 [facility] PlanoMjsxndaNLCYMYCGO3212-70-62 13:17:00 Test Item Value Reference Range Interpretation Comments Creatinine Lvl (test code = Creatinine 2.03 0.50-1.40 Lvl) [facility]anoIgzwownAXOHELNTN5271-10-11 13:17:00 Test Item Value Reference Range Interpretation Comments Sodium Lvl (test code = Sodium Lvl) 139 135-145 [facility] PlanoPcihrzuGNNKPJWRQ3064-34-47 13:17:00 Test Item Value Reference Range Interpretation Comments Potassium Lvl (test code = Potassium 4.7 3.5-5.1 Lvl) [facility] PlanoIjvopfsCDIEBGDBH4637-85-55 13:17:00 Test Item Value Reference Range Interpretation Comments Chloride Lvl (test code = Chloride Lvl) 107 95-109 [facility] PlanoDgiqffsEKYIVBBFW9271-27-28 13:17:00 Test Item Value Reference Range Interpretation Comments CO2 (test code = CO2) 26 24-32 [facility] PlanoXrdjbqsPOLTDVHGF8831-63-58 13:17:00 Test Item Value Reference Range Interpretation Comments Calcium Lvl (test code = Calcium Lvl) 8.1 8.5-10.5 [facility] PlanoTsyixbbTQWUMFXSM6789-03-96 13:17:00 Test Item Value Reference Range Interpretation Comments AGAP (test code = AGAP) 10.7 10.0-20.0 [facility] PlanoCfznzmtVFGZYVSLB3300-70-91 13:17:00 Test Item Value Reference Range Interpretation Comments eGFR (test code = eGFR) 24 [facility] PlanoHxhofqeWMDAUJTJB2849-78-94 13:17:00 Test Item Value Reference Range Interpretation Comments Ca Ion WB (test code = Ca Ion WB) 1.06 1.05-1.25 [place] 087233-02-22 13:17:00 Test Item Value Reference Range Interpretation Comments Ca Ion at pH 7.4 WB (test code = Ca Ion 1.03 1.05-1.25 at pH 7.4 WB) [facility]anoZkxmrvnRZLUTQOXC9174-65-98 13:17:00 Test Item Value Reference Range Interpretation Comments Magnesium Lvl (test code = Magnesium 2.7 1.8-2.4 Lvl) [place] 087233-02-22 13:17:00 Test Item Value Reference Range Interpretation Comments Phosphorus (test code = Phosphorus) 3.9 2.5-4.5 [place] 222913-02-22 13:17:00 Test Item Value Reference Range Interpretation Comments Segs (test code = Segs) 54.4 45.0-75.0 [place] [address]-02-22 13:17:00 Test Item Value Reference Range Interpretation Comments Lymphocytes (test code = Lymphocytes) 29.3 20.0-40.0 [place] [address]-02-22 13:17:00 Test Item Value Reference Range Interpretation Comments Monocytes (test code = Monocytes) 10.5 2.0-12.0 [place] 222913-02-22 13:17:00 Test Item Value Reference Range Interpretation Comments Eosinophils (test code = 5.0 See_Comment [A utomated message] The Eosinophils) system which ge nerated this result tra nsmitted reference range : <=4.0. The reference r christiano was not used to int erpret this result as normal/abnormal . [place] 222913-02-22 13:17:00 Test Item Value Reference Range Interpretation Comments Basophils (test code = 0.8 See_Comment [Aut omated message] The Basophils) system which ge nerated this result tra nsmitted reference range : <=1.0. The reference r christiano was not used to int erpret this result as normal/abnormal . [place] 222913-02-22 13:17:00 Test Item Value Reference Range Interpretation Comments Neutrophils # (test code = Neutrophils 4.1 1.5-8.1 #) [place] [address]-02-22 13:17:00 Test Item Value Reference Range Interpretation Comments Lymphocytes # (test code = Lymphocytes 2.2 1.0-5.5 #) [place] 222913-02-22 13:17:00 Test Item Value Reference Range Interpretation Comments Monocytes # (test code 0.8 See_Comment [Aut omated message] The = Monocytes #) system which generated this result tra nsmitted reference range : <=0.8. The reference r christiano was not used to int erpret this result as normal/abnormal . [place] 222913-02-22 13:17:00 Test Item Value Reference Range Interpretation Comments Eosinophils # (test code 0.4 See_Comment [A utomated message] The = Eosinophils #) system whic h generated this result tra nsmitted reference range : <=0.5. The reference r christiano was not used to int erpret this result as normal/abnormal . [place] 222913-02-22 13:17:00 Test Item Value Reference Range Interpretation Comments Basophils # (test code 0.1 See_Comment [Aut omated message] The = Basophils #) system which generated this result tra nsmitted reference range : <=0.2. The reference r christiano was not used to int erpret this result as normal/abnormal . [place] 222913-02-22 13:17:00 Test Item Value Reference Range Interpretation Comments WBC (test code = WBC) 7.5 3.7-10.4 [place] 222913-02-22 13:17:00 Test Item Value Reference Range Interpretation Comments RBC (test code = RBC) 3.30 4.20-5.40 [place] 222913-02-22 13:17:00 Test Item Value Reference Range Interpretation Comments Hgb (test code = Hgb) 9.9 12.0-16.0 [place] 222913-02-22 13:17:00 Test Item Value Reference Range Interpretation Comments Hct (test code = Hct) 30.3 36.0-48.0 [place] [address]-02-22 13:17:00 Test Item Value Reference Range Interpretation Comments MCV (test code = MCV) 91.8 80.0-98.0 [place] [address]-02-22 13:17:00 Test Item Value Reference Range Interpretation Comments MCH (test code = MCH) 30.0 pg 27.0-31.0 [place] [address]-02-22 13:17:00 Test Item Value Reference Range Interpretation Comments MCHC (test code = MCHC) 32.7 32.0-36.0 [place] [address]-02-22 13:17:00 Test Item Value Reference Range Interpretation Comments RDW (test code = RDW) 14.4 11.5-14.5 [place] 222913-02-22 13:17:00 Test Item Value Reference Range Interpretation Comments Platelet (test code = Platelet) 136 133-450 [place] 222913-02-22 13:17:00 Test Item Value Reference Range Interpretation Comments MPV (test code = MPV) 8.7 7.4-10.4 [place] [address]-02-22 13:17:00 Test Item Value Reference Range Interpretation Comments Segs (test code = Segs) 54.4 45.0-75.0 [place] [address]-02-22 13:17:00 Test Item Value Reference Range Interpretation Comments Lymphocytes (test code = Lymphocytes) 29.3 20.0-40.0 [place] [address]-02-22 13:17:00 Test Item Value Reference Range Interpretation Comments Monocytes (test code = Monocytes) 10.5 2.0-12.0 [place] [address]-02-22 13:17:00 Test Item Value Reference Range Interpretation Comments Eosinophils (test code = 5.0 See_Comment [A utomated message] The Eosinophils) system which ge nerated this result tra nsmitted reference range : <=4.0. The reference r christiano was not used to int erpret this result as normal/abnormal . [place] 222913-02-22 13:17:00 Test Item Value Reference Range Interpretation Comments Basophils (test code = 0.8 See_Comment [Aut omated message] The Basophils) system which ge nerated this result tra nsmitted reference range : <=1.0. The reference r christiano was not used to int erpret this result as normal/abnormal . [place] 222913-02-22 13:17:00 Test Item Value Reference Range Interpretation Comments Neutrophils # (test code = Neutrophils 4.1 1.5-8.1 #) [place] 222913-02-22 13:17:00 Test Item Value Reference Range Interpretation Comments Lymphocytes # (test code = Lymphocytes 2.2 1.0-5.5 #) [place] 222913-02-22 13:17:00 Test Item Value Reference Range Interpretation Comments Monocytes # (test code 0.8 See_Comment [Aut omated message] The = Monocytes #) system which generated this result tra nsmitted reference range : <=0.8. The reference r christiano was not used to int erpret this result as normal/abnormal . [facility]fcAPXTIADIGC7087-49-20 13:17:00 Test Item Value Reference Range Interpretation Comments Eosinophils # (test code 0.4 See_Comment [A utomated message] The = Eosinophils #) system whic h generated this result tra nsmitted reference range : <=0.5. The reference r christiano was not used to int erpret this result as normal/abnormal . [place] 222913-02-22 13:17:00 Test Item Value Reference Range Interpretation Comments Basophils # (test code 0.1 See_Comment [Aut omated message] The = Basophils #) system which generated this result tra nsmitted reference range : <=0.2. The reference r christiano was not used to int erpret this result as normal/abnormal . [facility] CenterFedvohjLWOINCRTMD4791-52-26 13:17:00 Test Item Value Reference Range Interpretation Comments WBC (test code = WBC) 7.5 3.7-10.4 [place] [address]-02-22 13:17:00 Test Item Value Reference Range Interpretation Comments RBC (test code = RBC) 3.30 4.20-5.40 [place] 222913-02-22 13:17:00 Test Item Value Reference Range Interpretation Comments Hgb (test code = Hgb) 9.9 12.0-16.0 [place] 222913-02-22 13:17:00 Test Item Value Reference Range Interpretation Comments Hct (test code = Hct) 30.3 36.0-48.0 [place] [address]-02-22 13:17:00 Test Item Value Reference Range Interpretation Comments MCV (test code = MCV) 91.8 80.0-98.0 [place] [address]-02-22 13:17:00 Test Item Value Reference Range Interpretation Comments MCH (test code = MCH) 30.0 pg 27.0-31.0 [place] [address]-02-22 13:17:00 Test Item Value Reference Range Interpretation Comments MCHC (test code = MCHC) 32.7 32.0-36.0 [place] [address]-02-22 13:17:00 Test Item Value Reference Range Interpretation Comments RDW (test code = RDW) 14.4 11.5-14.5 [place] [address]-02-22 13:17:00 Test Item Value Reference Range Interpretation Comments Platelet (test code = Platelet) 136 133-450 [place] 222913-02-22 13:17:00 Test Item Value Reference Range Interpretation Comments MPV (test code = MPV) 8.7 7.4-10.4 [facility]2023-02-22 13:17:00 Test Item Value Reference Range Interpretation Comments Ca Ion WB (test code = Ca Ion WB) 1.06 1.05-1.25 [place] 295153-02-22 13:17:00 Test Item Value Reference Range Interpretation Comments Ca Ion at pH 7.4 WB (test code = Ca Ion 1.03 1.05-1.25 at pH 7.4 WB) [facility]2023-02-22 13:17:00 Test Item Value Reference Range Interpretation Comments Glucose Lvl (test code = Glucose Lvl) 65 70-99 [place] 678383-02-22 13:17:00 Test Item Value Reference Range Interpretation Comments BUN (test code = BUN) 39 7-22 [facility]2023-02-22 13:17:00 Test Item Value Reference Range Interpretation Comments Creatinine Lvl (test code = Creatinine 2.03 0.50-1.40 Lvl) [place] 678383-02-22 13:17:00 Test Item Value Reference Range Interpretation Comments Sodium Lvl (test code = Sodium Lvl) 139 135-145 [place] 678383-02-22 13:17:00 Test Item Value Reference Range Interpretation Comments Potassium Lvl (test code = Potassium 4.7 3.5-5.1 Lvl) [place] 678383-02-22 13:17:00 Test Item Value Reference Range Interpretation Comments Chloride Lvl (test code = Chloride Lvl) 107 95-109 [place] 678383-02-22 13:17:00 Test Item Value Reference Range Interpretation Comments CO2 (test code = CO2) 26 24-32 [place] 678383-02-22 13:17:00 Test Item Value Reference Range Interpretation Comments Calcium Lvl (test code = Calcium Lvl) 8.1 8.5-10.5 [place] 678383-02-22 13:17:00 Test Item Value Reference Range Interpretation Comments AGAP (test code = AGAP) 10.7 10.0-20.0 [place] 678383-02-22 13:17:00 Test Item Value Reference Range Interpretation Comments eGFR (test code = eGFR) 24 [place] 678383-02-22 13:17:00 Test Item Value Reference Range Interpretation Comments Magnesium Lvl (test code = Magnesium 2.7 1.8-2.4 Lvl) [place] 678383-02-22 13:17:00 Test Item Value Reference Range Interpretation Comments Phosphorus (test code = Phosphorus) 3.9 2.5-4.5 [place] 087233-02-22 13:17:00 Test Item Value Reference Range Interpretation Comments Glucose Lvl (test code = Glucose Lvl) 65 70-99 [place] 087233-02-22 13:17:00 Test Item Value Reference Range Interpretation Comments BUN (test code = BUN) 39 7-22 [place] 087233-02-22 13:17:00 Test Item Value Reference Range Interpretation Comments Creatinine Lvl (test code = Creatinine 2.03 0.50-1.40 Lvl) [place] 087233-02-22 13:17:00 Test Item Value Reference Range Interpretation Comments Sodium Lvl (test code = Sodium Lvl) 139 135-145 [place] 087233-02-22 13:17:00 Test Item Value Reference Range Interpretation Comments Potassium Lvl (test code = Potassium 4.7 3.5-5.1 Lvl) [place] [address]-02-22 13:17:00 Test Item Value Reference Range Interpretation Comments Chloride Lvl (test code = Chloride Lvl) 107 95-109 [place] 087233-02-22 13:17:00 Test Item Value Reference Range Interpretation Comments CO2 (test code = CO2) 26 24-32 [place] 087233-02-22 13:17:00 Test Item Value Reference Range Interpretation Comments Calcium Lvl (test code = Calcium Lvl) 8.1 8.5-10.5 [facility]bglctyYBGNSUWKG6667-14-28 13:17:00 Test Item Value Reference Range Interpretation Comments AGAP (test code = AGAP) 10.7 10.0-20.0 [facility]anoXopfircOCCDHBYML5374-94-11 13:17:00 Test Item Value Reference Range Interpretation Comments eGFR (test code = eGFR) 24 [facility]anoMclxgtcQOMQIIZDJ2892-17-01 13:17:00 Test Item Value Reference Range Interpretation Comments Ca Ion WB (test code = Ca Ion WB) 1.06 1.05-1.25 [facility]anoMvprdvsQAWLNSHLN7988-24-72 13:17:00 Test Item Value Reference Range Interpretation Comments Ca Ion at pH 7.4 WB (test code = Ca Ion 1.03 1.05-1.25 at pH 7.4 WB) [facility]anoVkszyugWPUGLZUMD9232-00-74 13:17:00 Test Item Value Reference Range Interpretation Comments Magnesium Lvl (test code = Magnesium 2.7 1.8-2.4 Lvl) [facility]anoZfxxbghLNXLSHQWJ3959-29-33 13:17:00 Test Item Value Reference Range Interpretation Comments Phosphorus (test code = Phosphorus) 3.9 2.5-4.5 [facility] CenterLdulxqjKCDKSTOIYX9051-98-86 13:17:00 Test Item Value Reference Range Interpretation Comments Segs (test code = Segs) 54.4 45.0-75.0 [place] 222913-02-22 13:17:00 Test Item Value Reference Range Interpretation Comments Lymphocytes (test code = Lymphocytes) 29.3 20.0-40.0 [place] 222913-02-22 13:17:00 Test Item Value Reference Range Interpretation Comments Monocytes (test code = Monocytes) 10.5 2.0-12.0 [place] 222913-02-22 13:17:00 Test Item Value Reference Range Interpretation Comments Eosinophils (test code = 5.0 See_Comment [A utomated message] The Eosinophils) system which ge nerated this result tra nsmitted reference range : <=4.0. The reference r christiano was not used to int erpret this result as normal/abnormal . [facility] CenterKoihhmoKCUWVXVEKZ0023-42-00 13:17:00 Test Item Value Reference Range Interpretation Comments Basophils (test code = 0.8 See_Comment [Aut omated message] The Basophils) system which ge nerated this result tra nsmitted reference range : <=1.0. The reference r christiano was not used to int erpret this result as normal/abnormal . [place] 222913-02-22 13:17:00 Test Item Value Reference Range Interpretation Comments Neutrophils # (test code = Neutrophils 4.1 1.5-8.1 #) [place] 222913-02-22 13:17:00 Test Item Value Reference Range Interpretation Comments Lymphocytes # (test code = Lymphocytes 2.2 1.0-5.5 #) [place] 222913-02-22 13:17:00 Test Item Value Reference Range Interpretation Comments Monocytes # (test code 0.8 See_Comment [Aut omated message] The = Monocytes #) system which generated this result tra nsmitted reference range : <=0.8. The reference r christiano was not used to int erpret this result as normal/abnormal . [place] 222913-02-22 13:17:00 Test Item Value Reference Range Interpretation Comments Eosinophils # (test code 0.4 See_Comment [A utomated message] The = Eosinophils #) system whic h generated this result tra nsmitted reference range : <=0.5. The reference r christiano was not used to int erpret this result as normal/abnormal . [facility] CenterEjqihzrQMWHBACUNT8870-40-06 13:17:00 Test Item Value Reference Range Interpretation Comments Basophils # (test code 0.1 See_Comment [Aut omated message] The = Basophils #) system which generated this result tra nsmitted reference range : <=0.2. The reference r christiano was not used to int erpret this result as normal/abnormal . [facility] CenterWlzszuaBNJAEAZVWL1326-65-50 13:17:00 Test Item Value Reference Range Interpretation Comments WBC (test code = WBC) 7.5 3.7-10.4 [place] 222913-02-22 13:17:00 Test Item Value Reference Range Interpretation Comments RBC (test code = RBC) 3.30 4.20-5.40 [place] [address]-02-22 13:17:00 Test Item Value Reference Range Interpretation Comments Hgb (test code = Hgb) 9.9 12.0-16.0 [place] [address]-02-22 13:17:00 Test Item Value Reference Range Interpretation Comments Hct (test code = Hct) 30.3 36.0-48.0 [place] 222913-02-22 13:17:00 Test Item Value Reference Range Interpretation Comments MCV (test code = MCV) 91.8 80.0-98.0 [place] [address]-02-22 13:17:00 Test Item Value Reference Range Interpretation Comments MCH (test code = MCH) 30.0 pg 27.0-31.0 [place] [address]-02-22 13:17:00 Test Item Value Reference Range Interpretation Comments MCHC (test code = MCHC) 32.7 32.0-36.0 [place] 222913-02-22 13:17:00 Test Item Value Reference Range Interpretation Comments RDW (test code = RDW) 14.4 11.5-14.5 [place] 222913-02-22 13:17:00 Test Item Value Reference Range Interpretation Comments Platelet (test code = Platelet) 136 133-450 [place] 222913-02-22 13:17:00 Test Item Value Reference Range Interpretation Comments MPV (test code = MPV) 8.7 7.4-10.4 [place] 222913-02-22 13:17:00 Test Item Value Reference Range Interpretation Comments Segs (test code = Segs) 54.4 45.0-75.0 [place] 222913-02-22 13:17:00 Test Item Value Reference Range Interpretation Comments Lymphocytes (test code = Lymphocytes) 29.3 20.0-40.0 [place] 222913-02-22 13:17:00 Test Item Value Reference Range Interpretation Comments Monocytes (test code = Monocytes) 10.5 2.0-12.0 [place] [address]-02-22 13:17:00 Test Item Value Reference Range Interpretation Comments Eosinophils (test code = 5.0 See_Comment [A utomated message] The Eosinophils) system which ge nerated this result tra nsmitted reference range : <=4.0. The reference r christiano was not used to int erpret this result as normal/abnormal . [place] 222913-02-22 13:17:00 Test Item Value Reference Range Interpretation Comments Basophils (test code = 0.8 See_Comment [Aut omated message] The Basophils) system which ge nerated this result tra nsmitted reference range : <=1.0. The reference r christiano was not used to int erpret this result as normal/abnormal . [place] 222913-02-22 13:17:00 Test Item Value Reference Range Interpretation Comments Neutrophils # (test code = Neutrophils 4.1 1.5-8.1 #) [facility] CenterWbogiyrGPYBRPLTIO9176-98-76 13:17:00 Test Item Value Reference Range Interpretation Comments Lymphocytes # (test code = Lymphocytes 2.2 1.0-5.5 #) [place] 222913-02-22 13:17:00 Test Item Value Reference Range Interpretation Comments Monocytes # (test code 0.8 See_Comment [Aut omated message] The = Monocytes #) system which generated this result tra nsmitted reference range : <=0.8. The reference r christiano was not used to int erpret this result as normal/abnormal . [facility] CenterHolaevmCZFLOUEJUW2953-06-38 13:17:00 Test Item Value Reference Range Interpretation Comments Eosinophils # (test code 0.4 See_Comment [A utomated message] The = Eosinophils #) system whic h generated this result tra nsmitted reference range : <=0.5. The reference r christiano was not used to int erpret this result as normal/abnormal . [place] 222913-02-22 13:17:00 Test Item Value Reference Range Interpretation Comments Basophils # (test code 0.1 See_Comment [Aut omated message] The = Basophils #) system which generated this result tra nsmitted reference range : <=0.2. The reference r christiano was not used to int erpret this result as normal/abnormal . [place] 222913-02-22 13:17:00 Test Item Value Reference Range Interpretation Comments WBC (test code = WBC) 7.5 3.7-10.4 [place] 222913-02-22 13:17:00 Test Item Value Reference Range Interpretation Comments RBC (test code = RBC) 3.30 4.20-5.40 [place] [address]-02-22 13:17:00 Test Item Value Reference Range Interpretation Comments Hgb (test code = Hgb) 9.9 12.0-16.0 [place] [address]-02-22 13:17:00 Test Item Value Reference Range Interpretation Comments Hct (test code = Hct) 30.3 36.0-48.0 [place] 222913-02-22 13:17:00 Test Item Value Reference Range Interpretation Comments MCV (test code = MCV) 91.8 80.0-98.0 [place] 222913-02-22 13:17:00 Test Item Value Reference Range Interpretation Comments MCH (test code = MCH) 30.0 pg 27.0-31.0 [place] 222913-02-22 13:17:00 Test Item Value Reference Range Interpretation Comments MCHC (test code = MCHC) 32.7 32.0-36.0 [place] 222913-02-22 13:17:00 Test Item Value Reference Range Interpretation Comments RDW (test code = RDW) 14.4 11.5-14.5 [place] 222913-02-22 13:17:00 Test Item Value Reference Range Interpretation Comments Platelet (test code = Platelet) 136 133-450 [facility] CenterRvlijquUGTRMUMLWF9576-82-18 13:17:00 Test Item Value Reference Range Interpretation Comments MPV (test code = MPV) 8.7 7.4-10.4 [facility]2023-02-22 13:17:00 Test Item Value Reference Range Interpretation Comments Ca Ion WB (test code = Ca Ion WB) 1.06 1.05-1.25 [place] 295153-02-22 13:17:00 Test Item Value Reference Range Interpretation Comments Ca Ion at pH 7.4 WB (test code = Ca Ion 1.03 1.05-1.25 at pH 7.4 WB) [facility]2023-02-22 13:17:00 Test Item Value Reference Range Interpretation Comments Glucose Lvl (test code = Glucose Lvl) 65 70-99 [facility]2023-02-22 13:17:00 Test Item Value Reference Range Interpretation Comments BUN (test code = BUN) 39 7-22 [place] 678383-02-22 13:17:00 Test Item Value Reference Range Interpretation Comments Creatinine Lvl (test code = Creatinine 2.03 0.50-1.40 Lvl) [place] 678383-02-22 13:17:00 Test Item Value Reference Range Interpretation Comments Sodium Lvl (test code = Sodium Lvl) 139 135-145 [place] 678383-02-22 13:17:00 Test Item Value Reference Range Interpretation Comments Potassium Lvl (test code = Potassium 4.7 3.5-5.1 Lvl) [place] 678383-02-22 13:17:00 Test Item Value Reference Range Interpretation Comments Chloride Lvl (test code = Chloride Lvl) 107 95-109 [place] 678383-02-22 13:17:00 Test Item Value Reference Range Interpretation Comments CO2 (test code = CO2) 26 24-32 [place] 678383-02-22 13:17:00 Test Item Value Reference Range Interpretation Comments Calcium Lvl (test code = Calcium Lvl) 8.1 8.5-10.5 [place] 678383-02-22 13:17:00 Test Item Value Reference Range Interpretation Comments AGAP (test code = AGAP) 10.7 10.0-20.0 [place] 678383-02-22 13:17:00 Test Item Value Reference Range Interpretation Comments eGFR (test code = eGFR) 24 [place] 678383-02-22 13:17:00 Test Item Value Reference Range Interpretation Comments Magnesium Lvl (test code = Magnesium 2.7 1.8-2.4 Lvl) [place] 678383-02-22 13:17:00 Test Item Value Reference Range Interpretation Comments Phosphorus (test code = Phosphorus) 3.9 2.5-4.5 [place] [address]-02-22 13:17:00 Test Item Value Reference Range Interpretation Comments Glucose Lvl (test code = Glucose Lvl) 65 70-99 [place] 087233-02-22 13:17:00 Test Item Value Reference Range Interpretation Comments BUN (test code = BUN) 39 7-22 [place] 087233-02-22 13:17:00 Test Item Value Reference Range Interpretation Comments Creatinine Lvl (test code = Creatinine 2.03 0.50-1.40 Lvl) [place] 087233-02-22 13:17:00 Test Item Value Reference Range Interpretation Comments Sodium Lvl (test code = Sodium Lvl) 139 135-145 [facility]IyzkvolHNFQAOCYV9109-77-27 13:17:00 Test Item Value Reference Range Interpretation Comments Potassium Lvl (test code = Potassium 4.7 3.5-5.1 Lvl) [facility]anoAbigmyqGQQCZKVAY1526-91-21 13:17:00 Test Item Value Reference Range Interpretation Comments Chloride Lvl (test code = Chloride Lvl) 107 95-109 [facility]anoFjnuuclQZJNGUUEW1074-46-17 13:17:00 Test Item Value Reference Range Interpretation Comments CO2 (test code = CO2) 26 24-32 [facility] PlanoGatglhwOLRUDMHVI3580-06-99 13:17:00 Test Item Value Reference Range Interpretation Comments Calcium Lvl (test code = Calcium Lvl) 8.1 8.5-10.5 [facility]anoWzxijggBDSZDYREY3710-30-62 13:17:00 Test Item Value Reference Range Interpretation Comments AGAP (test code = AGAP) 10.7 10.0-20.0 [facility]anoFpqwflcYOKBYEXAG7472-85-51 13:17:00 Test Item Value Reference Range Interpretation Comments eGFR (test code = eGFR) 24 [facility] PlanoBuxgfcpGZTBCHCIV5462-20-38 13:17:00 Test Item Value Reference Range Interpretation Comments Ca Ion WB (test code = Ca Ion WB) 1.06 1.05-1.25 [facility] PlanoGhbkttkKRYNBLXBY5134-96-96 13:17:00 Test Item Value Reference Range Interpretation Comments Ca Ion at pH 7.4 WB (test code = Ca Ion 1.03 1.05-1.25 at pH 7.4 WB) [facility]anoHmljscyXWKSRERTM2225-02-21 13:17:00 Test Item Value Reference Range Interpretation Comments Magnesium Lvl (test code = Magnesium 2.7 1.8-2.4 Lvl) [facility] PlanoLpiezyiGDCMSXCTU0625-49-88 13:17:00 Test Item Value Reference Range Interpretation Comments Phosphorus (test code = Phosphorus) 3.9 2.5-4.5 [facility] CenterWxahareVDOCRSHUKL3489-08-65 13:17:00 Test Item Value Reference Range Interpretation Comments Segs (test code = Segs) 54.4 45.0-75.0 [facility] CenterAajgchcFTDIOBEJMW1572-38-49 13:17:00 Test Item Value Reference Range Interpretation Comments Lymphocytes (test code = Lymphocytes) 29.3 20.0-40.0 [facility] CenterSvghxquLBNDRRIHOH7524-00-34 13:17:00 Test Item Value Reference Range Interpretation Comments Monocytes (test code = Monocytes) 10.5 2.0-12.0 [facility] CenterOuounmkRQSLMIQWDB7797-16-14 13:17:00 Test Item Value Reference Range Interpretation Comments Eosinophils (test code = 5.0 See_Comment [A utomated message] The Eosinophils) system which ge nerated this result tra nsmitted reference range : <=4.0. The reference r christiano was not used to int erpret this result as normal/abnormal . [facility] CenterBptnqkuJWHUWZIGVT2355-41-85 13:17:00 Test Item Value Reference Range Interpretation Comments Basophils (test code = 0.8 See_Comment [Aut omated message] The Basophils) system which ge nerated this result tra nsmitted reference range : <=1.0. The reference r christiano was not used to int erpret this result as normal/abnormal . [facility] CenterNphantlZIXWPGVXLX6494-23-54 13:17:00 Test Item Value Reference Range Interpretation Comments Neutrophils # (test code = Neutrophils 4.1 1.5-8.1 #) [facility] CenterCjkdfjmFWVLRXBCYE6820-33-96 13:17:00 Test Item Value Reference Range Interpretation Comments Lymphocytes # (test code = Lymphocytes 2.2 1.0-5.5 #) [facility] CenterApiuqgpJVKGGGFJNC5301-70-19 13:17:00 Test Item Value Reference Range Interpretation Comments Monocytes # (test code 0.8 See_Comment [Aut omated message] The = Monocytes #) system which generated this result tra nsmitted reference range : <=0.8. The reference r christiano was not used to int erpret this result as normal/abnormal . [facility] CenterZnnrundBUZCKYYRBC5878-60-03 13:17:00 Test Item Value Reference Range Interpretation Comments Eosinophils # (test code 0.4 See_Comment [A utomated message] The = Eosinophils #) system whic h generated this result tra nsmitted reference range : <=0.5. The reference r christiano was not used to int erpret this result as normal/abnormal . [facility] CenterQwrjtgkRUVUDGPGPV5193-18-07 13:17:00 Test Item Value Reference Range Interpretation Comments Basophils # (test code 0.1 See_Comment [Aut omated message] The = Basophils #) system which generated this result tra nsmitted reference range : <=0.2. The reference r christiano was not used to int erpret this result as normal/abnormal . [facility] CenterAquninpLCRGEQYQUJ5548-62-76 13:17:00 Test Item Value Reference Range Interpretation Comments WBC (test code = WBC) 7.5 3.7-10.4 [place] 222913-02-22 13:17:00 Test Item Value Reference Range Interpretation Comments RBC (test code = RBC) 3.30 4.20-5.40 [place] 222913-02-22 13:17:00 Test Item Value Reference Range Interpretation Comments Hgb (test code = Hgb) 9.9 12.0-16.0 [place] 222913-02-22 13:17:00 Test Item Value Reference Range Interpretation Comments Hct (test code = Hct) 30.3 36.0-48.0 [place] 222913-02-22 13:17:00 Test Item Value Reference Range Interpretation Comments MCV (test code = MCV) 91.8 80.0-98.0 [facility] CenterTndzdwcIBYWGNRNYC1711-61-45 13:17:00 Test Item Value Reference Range Interpretation Comments MCH (test code = MCH) 30.0 pg 27.0-31.0 [facility] CenterTblwtbhIPKYYLUMGT4771-30-57 13:17:00 Test Item Value Reference Range Interpretation Comments MCHC (test code = MCHC) 32.7 32.0-36.0 [facility] CenterEedoablAHARQIIOAR1296-43-50 13:17:00 Test Item Value Reference Range Interpretation Comments RDW (test code = RDW) 14.4 11.5-14.5 [place] 222913-02-22 13:17:00 Test Item Value Reference Range Interpretation Comments Platelet (test code = Platelet) 136 133-450 [place] 222913-02-22 13:17:00 Test Item Value Reference Range Interpretation Comments MPV (test code = MPV) 8.7 7.4-10.4 [place] 222913-02-22 13:17:00 Test Item Value Reference Range Interpretation Comments Segs (test code = Segs) 54.4 45.0-75.0 [place] 222913-02-22 13:17:00 Test Item Value Reference Range Interpretation Comments Lymphocytes (test code = Lymphocytes) 29.3 20.0-40.0 [place] 222913-02-22 13:17:00 Test Item Value Reference Range Interpretation Comments Monocytes (test code = Monocytes) 10.5 2.0-12.0 [place] 222913-02-22 13:17:00 Test Item Value Reference Range Interpretation Comments Eosinophils (test code = 5.0 See_Comment [A utomated message] The Eosinophils) system which ge nerated this result tra nsmitted reference range : <=4.0. The reference r christiano was not used to int erpret this result as normal/abnormal . [place] 222913-02-22 13:17:00 Test Item Value Reference Range Interpretation Comments Basophils (test code = 0.8 See_Comment [Aut omated message] The Basophils) system which ge nerated this result tra nsmitted reference range : <=1.0. The reference r christiano was not used to int erpret this result as normal/abnormal . [facility] CenterMlmynptZXMMCEYBNM6909-83-10 13:17:00 Test Item Value Reference Range Interpretation Comments Neutrophils # (test code = Neutrophils 4.1 1.5-8.1 #) [facility] CenterJhsqdveHNXDXWFJHN8258-75-17 13:17:00 Test Item Value Reference Range Interpretation Comments Lymphocytes # (test code = Lymphocytes 2.2 1.0-5.5 #) [facility] CenterCdgbrsmAXQHNNUXZM7974-29-97 13:17:00 Test Item Value Reference Range Interpretation Comments Monocytes # (test code 0.8 See_Comment [Aut omated message] The = Monocytes #) system which generated this result tra nsmitted reference range : <=0.8. The reference r christiano was not used to int erpret this result as normal/abnormal . [facility] CenterYqksktjRESVHRIYBO5568-19-64 13:17:00 Test Item Value Reference Range Interpretation Comments Eosinophils # (test code 0.4 See_Comment [A utomated message] The = Eosinophils #) system whic h generated this result tra nsmitted reference range : <=0.5. The reference r christiano was not used to int erpret this result as normal/abnormal . [place] [address]-02-22 13:17:00 Test Item Value Reference Range Interpretation Comments Basophils # (test code 0.1 See_Comment [Aut omated message] The = Basophils #) system which generated this result tra nsmitted reference range : <=0.2. The reference r christiano was not used to int erpret this result as normal/abnormal . [facility] CenterLvfxhwkKBHLIZZVPM1612-87-29 13:17:00 Test Item Value Reference Range Interpretation Comments WBC (test code = WBC) 7.5 3.7-10.4 [facility] CenterFgtzrzuDVMZQVNXFV2974-58-42 13:17:00 Test Item Value Reference Range Interpretation Comments RBC (test code = RBC) 3.30 4.20-5.40 [facility] CenterOjqbqbdJDZGWPNRNA1875-61-00 13:17:00 Test Item Value Reference Range Interpretation Comments Hgb (test code = Hgb) 9.9 12.0-16.0 [facility] CenterUtjhuolIKRSWCRSXX4880-81-53 13:17:00 Test Item Value Reference Range Interpretation Comments Hct (test code = Hct) 30.3 36.0-48.0 [facility] CenterPppgzsaFIZTESKFFF5679-76-87 13:17:00 Test Item Value Reference Range Interpretation Comments MCV (test code = MCV) 91.8 80.0-98.0 [facility] CenterDmpieqkABPGKRRBAY7939-39-92 13:17:00 Test Item Value Reference Range Interpretation Comments MCH (test code = MCH) 30.0 pg 27.0-31.0 [facility] CenterJeabbvlQFVDFAYSID9960-95-13 13:17:00 Test Item Value Reference Range Interpretation Comments MCHC (test code = MCHC) 32.7 32.0-36.0 [facility] CenterOpwznfoWDFKWLQYCR6155-92-86 13:17:00 Test Item Value Reference Range Interpretation Comments RDW (test code = RDW) 14.4 11.5-14.5 [facility] CenterMmvxnwvXTXRDSDPIJ1468-88-22 13:17:00 Test Item Value Reference Range Interpretation Comments Platelet (test code = Platelet) 136 133-450 [facility] CenterZaoaaqbNQLYOYJDVB3254-33-67 13:17:00 Test Item Value Reference Range Interpretation Comments MPV (test code = MPV) 8.7 7.4-10.4 [facility]PARATHY[facility]ID [id number] 13:17:00 Test Item Value Reference Range Interpretation Comments Ca Ion WB (test code = Ca Ion WB) 1.06 1.05-1.25 [facility] CenterPARATHYROID ZMMINYE3288-62-24 13:17:00 Test Item Value Reference Range Interpretation Comments Ca Ion at pH 7.4 WB (test code = Ca Ion 1.03 1.05-1.25 at pH 7.4 WB) [facility]anoGfvmemuCUBHHGYEB3954-22-14 15:39:00 Test Item Value Reference Range Interpretation Comments U Amph Scr (test code Negative *NA*(11/21/22 = U Amph Scr) 9:39 AM) [facility]anoHejggwdBJXEUTEQR1494-80-90 15:39:00 Test Item Value Reference Range Interpretation Comments U Analilia Scr (test code Positive *ABN*(11/21/22 = U Analilia Scr) 9:39 AM) [facility]anoMlwhxwsYVQAGQGFY6588-69-00 15:39:00 Test Item Value Reference Range Interpretation Comments U Benzodiaz Scr (test Negative *NA*(11/21/22 code = U Benzodiaz Scr) 9:39 AM) [facility]anoSbblhxdDUFPSLLCM4302-22-72 15:39:00 Test Item Value Reference Range Interpretation Comments U Cocaine Scr (test Negative *NA*(11/21/22 code = U Cocaine Scr) 9:39 AM) [facility]anoAeltbjgRQJSHXDGV4269-65-20 15:39:00 Test Item Value Reference Range Interpretation Comments U Cannab Scr (test Negative *NA*(11/21/22 code = U Cannab Scr) 9:39 AM) [facility]anoHmrvdfjNRLMYONMT7062-93-02 15:39:00 Test Item Value Reference Range Interpretation Comments U Opiate Scr (test Positive *ABN*(11/21/22 code = U Opiate Scr) 9:39 AM) [facility]anoFtlrmcmGYYVPHOFO7199-98-71 15:39:00 Test Item Value Reference Range Interpretation Comments U Phencyclidine Scr (test Negative code = U Phencyclidine *NA*(11/21/22 9:39 Scr) AM) [facility]anoVykvgfsOLBYWWZLH7307-31-90 15:39:00 Test Item Value Reference Range Interpretation Comments UDS Note (test code = See Note (11/21/22 9:39 UDS Note) AM) [facility] CenterVwiwgytTTBOOZWUAO3949-08-91 15:39:00 Test Item Value Reference Range Interpretation Comments Coronavirus (COVID-19) Not Detected (11/21/22 JONATHAN (test code = 9:39 AM) Coronavirus (COVID-19) JONATHAN) [facility] AND [id number] 15:39:00 Test Item Value Reference Range Interpretation Comments UA Color (test code = Light Yellow UA Color) *NA*(11/21/22 9:39 AM) [facility] AND [id number] 15:39:00 Test Item Value Reference Range Interpretation Comments UA Turbidity (test code = Clear (11/21/22 9:39 UA Turbidity) AM) [facility] AND [id number] 15:39:00 Test Item Value Reference Range Interpretation Comments UA Spec Grav (test code = UA Spec 1.014 1 Grav) [facility] AND [id number] 15:39:00 Test Item Value Reference Range Interpretation Comments UA pH (test code = UA pH) 6.0 1 5.0-8.0 [facility] AND [id number] 15:39:00 Test Item Value Reference Range Interpretation Comments UA Protein (test code = UA Protein) 30 mg/dL [facility] AND [id number] 15:39:00 Test Item Value Reference Range Interpretation Comments UA Glucose (test code = UA Negative mg/dL Glucose) [facility] AND [id number] 15:39:00 Test Item Value Reference Range Interpretation Comments UA Ketones (test code = UA Negative mg/dL Ketones) [facility] AND [id number] 15:39:00 Test Item Value Reference Range Interpretation Comments UA Bili (test code = Negative *NA*(11/21/22 UA Bili) 9:39 AM) [facility] AND [id number] 15:39:00 Test Item Value Reference Range Interpretation Comments UA Blood (test code = Negative (11/21/22 9:39 UA Blood) AM) [facility] AND [id number] 15:39:00 Test Item Value Reference Range Interpretation Comments UA Urobilinogen (test code = UA no gt 0.1-1.0 Urobilinogen) [facility] AND [id number] 15:39:00 Test Item Value Reference Range Interpretation Comments UA Nitrite (test code Negative (11/21/22 9:39 = UA Nitrite) AM) [facility] AND [id number] 15:39:00 Test Item Value Reference Range Interpretation Comments UA Leuk Est (test Negative (11/21/22 9:39 code = UA Leuk Est) AM) [facility] AND [id number] 15:39:00 Test Item Value Reference Range Interpretation Comments UA Sq Epi (test code = UA Sq Occasional /LPF Epi) [facility] AND [id number] 15:39:00 Test Item Value Reference Range Interpretation Comments UA WBC (test code = no gt See_Comment [Automa sheba message] The UA WBC) system which ge nerated this result transmit sheba reference range : <=5. The reference range was not used to interpr et this result as edy l/abnormal. [facility] AND [id number] 15:39:00 Test Item Value Reference Range Interpretation Comments UA RBC (test code = no gt See_Comment [Automa sheba message] The UA RBC) system which ge nerated this result transmit sheba reference range : <=2. The reference range was not used to interpr et this result as edy l/abnormal. [facility]anoNfyypgfNFQEAPMDA8502-47-15 15:39:00 Test Item Value Reference Range Interpretation Comments U Amph Scr (test code Negative *NA*(11/21/22 = U Amph Scr) 9:39 AM) [facility]anoEhrjtwzSDFFDKRIJ3492-24-05 15:39:00 Test Item Value Reference Range Interpretation Comments U Analilia Scr (test code Positive *ABN*(11/21/22 = U Analilia Scr) 9:39 AM) [facility]anoVvzhxeeHDDDPYSEF0230-97-20 15:39:00 Test Item Value Reference Range Interpretation Comments U Benzodiaz Scr (test Negative *NA*(11/21/22 code = U Benzodiaz Scr) 9:39 AM) [facility]anoHvvzdveFZWQOLRBF9824-91-68 15:39:00 Test Item Value Reference Range Interpretation Comments U Cocaine Scr (test Negative *NA*(11/21/22 code = U Cocaine Scr) 9:39 AM) [facility] PlanoLexqkqiERRXWJEPH4547-61-55 15:39:00 Test Item Value Reference Range Interpretation Comments U Cannab Scr (test Negative *NA*(11/21/22 code = U Cannab Scr) 9:39 AM) [facility] GjbmzzqOCAKPJRUY0114-44-67 15:39:00 Test Item Value Reference Range Interpretation Comments U Opiate Scr (test Positive *ABN*(11/21/22 code = U Opiate Scr) 9:39 AM) [facility] [id number] 15:39:00 Test Item Value Reference Range Interpretation Comments U Phencyclidine Scr (test Negative code = U Phencyclidine *NA*(11/21/22 9:39 Scr) AM) [facility] TxuodxsCLFNSHQSZ6090-71-74 15:39:00 Test Item Value Reference Range Interpretation Comments UDS Note (test code = See Note (11/21/22 9:39 UDS Note) AM) [facility] CenterVmgfihaKCEHCQYLGP5637-95-08 15:39:00 Test Item Value Reference Range Interpretation Comments Coronavirus (COVID-19) Not Detected (11/21/22 JONATHAN (test code = 9:39 AM) Coronavirus (COVID-19) JONATHAN) [facility] AND [id number] 15:39:00 Test Item Value Reference Range Interpretation Comments UA Color (test code = Light Yellow UA Color) *NA*(11/21/22 9:39 AM) [facility] [id number] 15:39:00 Test Item Value Reference Range Interpretation Comments UA Turbidity (test code = Clear (11/21/22 9:39 UA Turbidity) AM) [facility] [id number] 15:39:00 Test Item Value Reference Range Interpretation Comments UA Spec Grav (test code = UA Spec 1.014 1 Grav) [facility] AND [id number] 15:39:00 Test Item Value Reference Range Interpretation Comments UA pH (test code = UA pH) 6.0 1 5.0-8.0 [facility] [id number] 15:39:00 Test Item Value Reference Range Interpretation Comments UA Protein (test code = UA Protein) 30 mg/dL [facility] [id number] 15:39:00 Test Item Value Reference Range Interpretation Comments UA Glucose (test code = UA Negative mg/dL Glucose) [facility] AND [id number] 15:39:00 Test Item Value Reference Range Interpretation Comments UA Ketones (test code = UA Negative mg/dL Ketones) [facility] AND [id number] 15:39:00 Test Item Value Reference Range Interpretation Comments UA Bili (test code = Negative *NA*(11/21/22 UA Bili) 9:39 AM) [facility] AND [id number] 15:39:00 Test Item Value Reference Range Interpretation Comments UA Blood (test code = Negative (11/21/22 9:39 UA Blood) AM) [facility] AND [id number] 15:39:00 Test Item Value Reference Range Interpretation Comments UA Urobilinogen (test code = UA no gt 0.1-1.0 Urobilinogen) [facility] AND [id number] 15:39:00 Test Item Value Reference Range Interpretation Comments UA Nitrite (test code Negative (11/21/22 9:39 = UA Nitrite) AM) [facility] AND [id number] 15:39:00 Test Item Value Reference Range Interpretation Comments UA Leuk Est (test Negative (11/21/22 9:39 code = UA Leuk Est) AM) [facility] AND [id number] 15:39:00 Test Item Value Reference Range Interpretation Comments UA Sq Epi (test code = UA Sq Occasional /LPF Epi) [facility] AND [id number] 15:39:00 Test Item Value Reference Range Interpretation Comments UA WBC (test code = no gt See_Comment [Automa sheba message] The UA WBC) system which ge nerated this result transmit sheba reference range : <=5. The reference range was not used to interpr et this result as edy l/abnormal. [facility] AND [id number] 15:39:00 Test Item Value Reference Range Interpretation Comments UA RBC (test code = no gt See_Comment [Automa sheba message] The UA RBC) system which ge nerated this result transmit sheba reference range : <=2. The reference range was not used to interpr et this result as edy l/abnormal. [id number] 15:39:00 Test Item Value Reference Range Interpretation Comments U Amph Scr (test code Negative *NA*(11/21/22 = U Amph Scr) 9:39 AM) [facility][id number] 15:39:00 Test Item Value Reference Range Interpretation Comments U Analilia Scr (test code Positive *ABN*(11/21/22 = U Analilia Scr) 9:39 AM) [facility] [id number] 15:39:00 Test Item Value Reference Range Interpretation Comments U Benzodiaz Scr (test Negative *NA*(11/21/22 code = U Benzodiaz Scr) 9:39 AM) [facility] [id number] 15:39:00 Test Item Value Reference Range Interpretation Comments U Cocaine Scr (test Negative *NA*(11/21/22 code = U Cocaine Scr) 9:39 AM) [facility] BvzxyctGQYRPUHQQ5184-69-95 15:39:00 Test Item Value Reference Range Interpretation Comments U Cannab Scr (test Negative *NA*(11/21/22 code = U Cannab Scr) 9:39 AM) [facility] [id number] 15:39:00 Test Item Value Reference Range Interpretation Comments U Opiate Scr (test Positive *ABN*(11/21/22 code = U Opiate Scr) 9:39 AM) [facility] [id number] 15:39:00 Test Item Value Reference Range Interpretation Comments U Phencyclidine Scr (test Negative code = U Phencyclidine *NA*(11/21/22 9:39 Scr) AM) [facility] FallsNllqnvfHNZZFXTVQ5939-10-25 15:39:00 Test Item Value Reference Range Interpretation Comments UDS Note (test code = See Note (11/21/22 9:39 UDS Note) AM) [facility]annDR[facility] [id number] 15:39:00 Test Item Value Reference Range Interpretation Comments U Amph Scr (test code Negative *NA*(11/21/22 = U Amph Scr) 9:39 AM) [facility]annDR[facility] [id number] 15:39:00 Test Item Value Reference Range Interpretation Comments U Analilia Scr (test code Positive *ABN*(11/21/22 = U Analilia Scr) 9:39 AM) [facility]DR[facility] [id number] 15:39:00 Test Item Value Reference Range Interpretation Comments U Benzodiaz Scr (test Negative *NA*(11/21/22 code = U Benzodiaz Scr) 9:39 AM) [facility]DR[facility] [id number] 15:39:00 Test Item Value Reference Range Interpretation Comments U Cocaine Scr (test Negative *NA*(11/21/22 code = U Cocaine Scr) 9:39 AM) [facility] [id number] 15:39:00 Test Item Value Reference Range Interpretation Comments U Cannab Scr (test Negative *NA*(11/21/22 code = U Cannab Scr) 9:39 AM) [facility] [id number] 15:39:00 Test Item Value Reference Range Interpretation Comments U Opiate Scr (test Positive *ABN*(11/21/22 code = U Opiate Scr) 9:39 AM) [facility] [id number] 15:39:00 Test Item Value Reference Range Interpretation Comments U Phencyclidine Scr (test Negative code = U Phencyclidine *NA*(11/21/22 9:39 Scr) AM) [facility] [id number] 15:39:00 Test Item Value Reference Range Interpretation Comments UDS Note (test code = See Note (11/21/22 9:39 UDS Note) AM) [facility] CbvdhuoRCESOPNYKP3847-07-25 15:39:00 Test Item Value Reference Range Interpretation Comments Coronavirus (COVID-19) Not Detected (11/21/22 JONATHAN (test code = 9:39 AM) Coronavirus (COVID-19) JONATHAN) [facility] [id number] 15:39:00 Test Item Value Reference Range Interpretation Comments Coronavirus (COVID-19) Not Detected (11/21/22 JONATHAN (test code = 9:39 AM) Coronavirus (COVID-19) JONATHAN) [facility] [id number] 15:39:00 Test Item Value Reference Range Interpretation Comments UA Color (test code = Light Yellow UA Color) *NA*(11/21/22 9:39 AM) [facility] [id number] 15:39:00 Test Item Value Reference Range Interpretation Comments UA Turbidity (test code = Clear (11/21/22 9:39 UA Turbidity) AM) [facility] [id number] 15:39:00 Test Item Value Reference Range Interpretation Comments UA Spec Grav (test code = UA Spec 1.014 1 Grav) [facility] [id number] 15:39:00 Test Item Value Reference Range Interpretation Comments UA pH (test code = UA pH) 6.0 1 5.0-8.0 [facility] AND [id number] 15:39:00 Test Item Value Reference Range Interpretation Comments UA Protein (test code = UA Protein) 30 mg/dL [facility] AND [id number] 15:39:00 Test Item Value Reference Range Interpretation Comments UA Glucose (test code = UA Negative mg/dL Glucose) [facility] AND [id number] 15:39:00 Test Item Value Reference Range Interpretation Comments UA Ketones (test code = UA Negative mg/dL Ketones) [facility] AND [id number] 15:39:00 Test Item Value Reference Range Interpretation Comments UA Bili (test code = Negative *NA*(11/21/22 UA Bili) 9:39 AM) [facility] AND [id number] 15:39:00 Test Item Value Reference Range Interpretation Comments UA Blood (test code = Negative (11/21/22 9:39 UA Blood) AM) [facility] AND [id number] 15:39:00 Test Item Value Reference Range Interpretation Comments UA Urobilinogen (test code = UA no gt 0.1-1.0 Urobilinogen) [facility] AND [id number] 15:39:00 Test Item Value Reference Range Interpretation Comments UA Nitrite (test code Negative (11/21/22 9:39 = UA Nitrite) AM) [facility] AND [id number] 15:39:00 Test Item Value Reference Range Interpretation Comments UA Leuk Est (test Negative (11/21/22 9:39 code = UA Leuk Est) AM) [facility] AND [id number] 15:39:00 Test Item Value Reference Range Interpretation Comments UA Sq Epi (test code = UA Sq Occasional /LPF Epi) [facility] AND [id number] 15:39:00 Test Item Value Reference Range Interpretation Comments UA WBC (test code = no gt See_Comment [Automa sheba message] The UA WBC) system which ge nerated this result transmit sheba reference range : <=5. The reference range was not used to interpr et this result as edy l/abnormal. [facility] AND [id number] 15:39:00 Test Item Value Reference Range Interpretation Comments UA RBC (test code = no gt See_Comment [Automa sheba message] The UA RBC) system which ge nerated this result transmit sheba reference range : <=2. The reference range was not used to interpr et this result as edy l/abnormal. [facility] AND [id number] 15:39:00 Test Item Value Reference Range Interpretation Comments UA Color (test code = Light Yellow UA Color) *NA*(11/21/22 9:39 AM) [facility] AND [id number] 15:39:00 Test Item Value Reference Range Interpretation Comments UA Turbidity (test code = Clear (11/21/22 9:39 UA Turbidity) AM) [facility] AND [id number] 15:39:00 Test Item Value Reference Range Interpretation Comments UA Spec Grav (test code = UA Spec 1.014 1 Grav) [facility] AND [id number] 15:39:00 Test Item Value Reference Range Interpretation Comments UA pH (test code = UA pH) 6.0 1 5.0-8.0 [facility] AND [id number] 15:39:00 Test Item Value Reference Range Interpretation Comments UA Protein (test code = UA Protein) 30 mg/dL [facility] AND [id number] 15:39:00 Test Item Value Reference Range Interpretation Comments UA Glucose (test code = UA Negative mg/dL Glucose) [facility] AND [id number] 15:39:00 Test Item Value Reference Range Interpretation Comments UA Ketones (test code = UA Negative mg/dL Ketones) [facility] AND [id number] 15:39:00 Test Item Value Reference Range Interpretation Comments UA Bili (test code = Negative *NA*(11/21/22 UA Bili) 9:39 AM) [facility] AND [id number] 15:39:00 Test Item Value Reference Range Interpretation Comments UA Blood (test code = Negative (11/21/22 9:39 UA Blood) AM) [facility] AND [id number] 15:39:00 Test Item Value Reference Range Interpretation Comments UA Urobilinogen (test code = UA no gt 0.1-1.0 Urobilinogen) [facility] AND [id number] 15:39:00 Test Item Value Reference Range Interpretation Comments UA Nitrite (test code Negative (11/21/22 9:39 = UA Nitrite) AM) [facility] AND [id number] 15:39:00 Test Item Value Reference Range Interpretation Comments UA Leuk Est (test Negative (11/21/22 9:39 code = UA Leuk Est) AM) [facility] AND [id number] 15:39:00 Test Item Value Reference Range Interpretation Comments UA Sq Epi (test code = UA Sq Occasional /LPF Epi) [facility] AND [id number] 15:39:00 Test Item Value Reference Range Interpretation Comments UA WBC (test code = no gt See_Comment [Automa sheba message] The UA WBC) system which ge nerated this result transmit sheba reference range : <=5. The reference range was not used to interpr et this result as edy l/abnormal. [facility] AND [id number] 15:39:00 Test Item Value Reference Range Interpretation Comments UA RBC (test code = no gt See_Comment [Automa sheba message] The UA RBC) system which ge nerated this result transmit sheba reference range : <=2. The reference range was not used to interpr et this result as edy l/abnormal. [id number] 15:39:00 Test Item Value Reference Range Interpretation Comments U Amph Scr (test code Negative *NA*(11/21/22 = U Amph Scr) 9:39 AM) [id number] 15:39:00 Test Item Value Reference Range Interpretation Comments U Analilia Scr (test code Positive *ABN*(11/21/22 = U Analilia Scr) 9:39 AM) [id number] 15:39:00 Test Item Value Reference Range Interpretation Comments U Benzodiaz Scr (test Negative *NA*(11/21/22 code = U Benzodiaz Scr) 9:39 AM) [id number] 15:39:00 Test Item Value Reference Range Interpretation Comments U Cocaine Scr (test Negative *NA*(11/21/22 code = U Cocaine Scr) 9:39 AM) [facility] [id number] 15:39:00 Test Item Value Reference Range Interpretation Comments U Cannab Scr (test Negative *NA*(11/21/22 code = U Cannab Scr) 9:39 AM) [facility] [id number] 15:39:00 Test Item Value Reference Range Interpretation Comments U Opiate Scr (test Positive *ABN*(11/21/22 code = U Opiate Scr) 9:39 AM) [facility] [id number] 15:39:00 Test Item Value Reference Range Interpretation Comments U Phencyclidine Scr (test Negative code = U Phencyclidine *NA*(11/21/22 9:39 Scr) AM) [facility] [id number] 15:39:00 Test Item Value Reference Range Interpretation Comments UDS Note (test code = See Note (11/21/22 9:39 UDS Note) AM) [facility] [id number] 15:39:00 Test Item Value Reference Range Interpretation Comments U Amph Scr (test code Negative *NA*(11/21/22 = U Amph Scr) 9:39 AM) [facility] [id number] 15:39:00 Test Item Value Reference Range Interpretation Comments U Analilia Scr (test code Positive *ABN*(11/21/22 = U Analilia Scr) 9:39 AM) [facility] [id number] 15:39:00 Test Item Value Reference Range Interpretation Comments U Benzodiaz Scr (test Negative *NA*(11/21/22 code = U Benzodiaz Scr) 9:39 AM) [facility] [id number] 15:39:00 Test Item Value Reference Range Interpretation Comments U Cocaine Scr (test Negative *NA*(11/21/22 code = U Cocaine Scr) 9:39 AM) [facility] [id number] 15:39:00 Test Item Value Reference Range Interpretation Comments U Cannab Scr (test Negative *NA*(11/21/22 code = U Cannab Scr) 9:39 AM) [facility] [id number] 15:39:00 Test Item Value Reference Range Interpretation Comments U Opiate Scr (test Positive *ABN*(11/21/22 code = U Opiate Scr) 9:39 AM) [facility] [id number] 15:39:00 Test Item Value Reference Range Interpretation Comments U Phencyclidine Scr (test Negative code = U Phencyclidine *NA*(11/21/22 9:39 Scr) AM) [facility] [id number] 15:39:00 Test Item Value Reference Range Interpretation Comments UDS Note (test code = See Note (11/21/22 9:39 UDS Note) AM) [facility] [id number] 15:39:00 Test Item Value Reference Range Interpretation Comments Coronavirus (COVID-19) Not Detected (11/21/22 JONATHAN (test code = 9:39 AM) Coronavirus (COVID-19) JONATHAN) [facility] [id number] 15:39:00 Test Item Value Reference Range Interpretation Comments Coronavirus (COVID-19) Not Detected (11/21/22 JONATHAN (test code = 9:39 AM) Coronavirus (COVID-19) JONATHAN) [facility] [id number] 15:39:00 Test Item Value Reference Range Interpretation Comments UA Color (test code = Light Yellow UA Color) *NA*(11/21/22 9:39 AM) [facility] [id number] 15:39:00 Test Item Value Reference Range Interpretation Comments UA Turbidity (test code = Clear (11/21/22 9:39 UA Turbidity) AM) [facility] [id number] 15:39:00 Test Item Value Reference Range Interpretation Comments UA Spec Grav (test code = UA Spec 1.014 1 Grav) [facility] [id number] 15:39:00 Test Item Value Reference Range Interpretation Comments UA pH (test code = UA pH) 6.0 1 5.0-8.0 [facility] [id number] 15:39:00 Test Item Value Reference Range Interpretation Comments UA Protein (test code = UA Protein) 30 mg/dL [facility] [id number] 15:39:00 Test Item Value Reference Range Interpretation Comments UA Glucose (test code = UA Negative mg/dL Glucose) [facility] [id number] 15:39:00 Test Item Value Reference Range Interpretation Comments UA Ketones (test code = UA Negative mg/dL Ketones) [facility] AND [id number] 15:39:00 Test Item Value Reference Range Interpretation Comments UA Bili (test code = Negative *NA*(11/21/22 UA Bili) 9:39 AM) [facility] AND [id number] 15:39:00 Test Item Value Reference Range Interpretation Comments UA Blood (test code = Negative (11/21/22 9:39 UA Blood) AM) [facility] AND [id number] 15:39:00 Test Item Value Reference Range Interpretation Comments UA Urobilinogen (test code = UA no gt 0.1-1.0 Urobilinogen) [facility] AND [id number] 15:39:00 Test Item Value Reference Range Interpretation Comments UA Nitrite (test code Negative (11/21/22 9:39 = UA Nitrite) AM) [facility] AND [id number] 15:39:00 Test Item Value Reference Range Interpretation Comments UA Leuk Est (test Negative (11/21/22 9:39 code = UA Leuk Est) AM) [facility] AND [id number] 15:39:00 Test Item Value Reference Range Interpretation Comments UA Sq Epi (test code = UA Sq Occasional /LPF Epi) [facility] AND [id number] 15:39:00 Test Item Value Reference Range Interpretation Comments UA WBC (test code = no gt See_Comment [Automa sheba message] The UA WBC) system which ge nerated this result transmit sheba reference range : <=5. The reference range was not used to interpr et this result as edy l/abnormal. [facility] AND [id number] 15:39:00 Test Item Value Reference Range Interpretation Comments UA RBC (test code = no gt See_Comment [Automa sheba message] The UA RBC) system which ge nerated this result transmit sheba reference range : <=2. The reference range was not used to interpr et this result as edy l/abnormal. [facility] AND [id number] 15:39:00 Test Item Value Reference Range Interpretation Comments UA Color (test code = Light Yellow UA Color) *NA*(11/21/22 9:39 AM) [facility] AND [id number] 15:39:00 Test Item Value Reference Range Interpretation Comments UA Turbidity (test code = Clear (11/21/22 9:39 UA Turbidity) AM) [facility] AND [id number] 15:39:00 Test Item Value Reference Range Interpretation Comments UA Spec Grav (test code = UA Spec 1.014 1 Grav) [facility] AND [id number] 15:39:00 Test Item Value Reference Range Interpretation Comments UA pH (test code = UA pH) 6.0 1 5.0-8.0 [facility] AND [id number] 15:39:00 Test Item Value Reference Range Interpretation Comments UA Protein (test code = UA Protein) 30 mg/dL [facility] AND [id number] 15:39:00 Test Item Value Reference Range Interpretation Comments UA Glucose (test code = UA Negative mg/dL Glucose) [facility] AND [id number] 15:39:00 Test Item Value Reference Range Interpretation Comments UA Ketones (test code = UA Negative mg/dL Ketones) [facility] AND [id number] 15:39:00 Test Item Value Reference Range Interpretation Comments UA Bili (test code = Negative *NA*(11/21/22 UA Bili) 9:39 AM) [facility] AND [id number] 15:39:00 Test Item Value Reference Range Interpretation Comments UA Blood (test code = Negative (11/21/22 9:39 UA Blood) AM) [facility] AND [id number] 15:39:00 Test Item Value Reference Range Interpretation Comments UA Urobilinogen (test code = UA no gt 0.1-1.0 Urobilinogen) [facility] AND [id number] 15:39:00 Test Item Value Reference Range Interpretation Comments UA Nitrite (test code Negative (11/21/22 9:39 = UA Nitrite) AM) [facility] AND [id number] 15:39:00 Test Item Value Reference Range Interpretation Comments UA Leuk Est (test Negative (11/21/22 9:39 code = UA Leuk Est) AM) [facility] AND [id number] 15:39:00 Test Item Value Reference Range Interpretation Comments UA Sq Epi (test code = UA Sq Occasional /LPF Epi) [facility] AND [id number] 15:39:00 Test Item Value Reference Range Interpretation Comments UA WBC (test code = no gt See_Comment [Automa sheba message] The UA WBC) system which ge nerated this result transmit sheba reference range : <=5. The reference range was not used to interpr et this result as edy l/abnormal. [facility] AND [id number] 15:39:00 Test Item Value Reference Range Interpretation Comments UA RBC (test code = no gt See_Comment [Automa sheba message] The UA RBC) system which ge nerated this result transmit sheba reference range : <=2. The reference range was not used to interpr et this result as edy l/abnormal. [facility] [id number] 15:39:00 Test Item Value Reference Range Interpretation Comments U Amph Scr (test code Negative *NA*(11/21/22 = U Amph Scr) 9:39 AM) [facility] [id number] 15:39:00 Test Item Value Reference Range Interpretation Comments U Analilia Scr (test code Positive *ABN*(11/21/22 = U Analilia Scr) 9:39 AM) [facility] [id number] 15:39:00 Test Item Value Reference Range Interpretation Comments U Benzodiaz Scr (test Negative *NA*(11/21/22 code = U Benzodiaz Scr) 9:39 AM) [facility] [id number] 15:39:00 Test Item Value Reference Range Interpretation Comments U Cocaine Scr (test Negative *NA*(11/21/22 code = U Cocaine Scr) 9:39 AM) [facility] [id number] 15:39:00 Test Item Value Reference Range Interpretation Comments U Cannab Scr (test Negative *NA*(11/21/22 code = U Cannab Scr) 9:39 AM) [facility] [id number] 15:39:00 Test Item Value Reference Range Interpretation Comments U Opiate Scr (test Positive *ABN*(11/21/22 code = U Opiate Scr) 9:39 AM) [id number] 15:39:00 Test Item Value Reference Range Interpretation Comments U Phencyclidine Scr (test Negative code = U Phencyclidine *NA*(11/21/22 9:39 Scr) AM) [facility] [id number] 15:39:00 Test Item Value Reference Range Interpretation Comments UDS Note (test code = See Note (11/21/22 9:39 UDS Note) AM) [facility] [id number] 15:39:00 Test Item Value Reference Range Interpretation Comments U Amph Scr (test code Negative *NA*(11/21/22 = U Amph Scr) 9:39 AM) [facility] [id number] 15:39:00 Test Item Value Reference Range Interpretation Comments U Analilia Scr (test code Positive *ABN*(11/21/22 = U Analilia Scr) 9:39 AM) [facility] [id number] 15:39:00 Test Item Value Reference Range Interpretation Comments U Benzodiaz Scr (test Negative *NA*(11/21/22 code = U Benzodiaz Scr) 9:39 AM) [facility] [id number] 15:39:00 Test Item Value Reference Range Interpretation Comments U Cocaine Scr (test Negative *NA*(11/21/22 code = U Cocaine Scr) 9:39 AM) [facility] [id number] 15:39:00 Test Item Value Reference Range Interpretation Comments U Cannab Scr (test Negative *NA*(11/21/22 code = U Cannab Scr) 9:39 AM) [facility] [id number] 15:39:00 Test Item Value Reference Range Interpretation Comments U Opiate Scr (test Positive *ABN*(11/21/22 code = U Opiate Scr) 9:39 AM) [facility] [id number] 15:39:00 Test Item Value Reference Range Interpretation Comments U Phencyclidine Scr (test Negative code = U Phencyclidine *NA*(11/21/22 9:39 Scr) AM) [facility] [id number] 15:39:00 Test Item Value Reference Range Interpretation Comments UDS Note (test code = See Note (11/21/22 9:39 UDS Note) AM) [facility] [id number] 15:39:00 Test Item Value Reference Range Interpretation Comments Coronavirus (COVID-19) Not Detected (11/21/22 JONATHAN (test code = 9:39 AM) Coronavirus (COVID-19) JONATHAN) [facility] [id number] 15:39:00 Test Item Value Reference Range Interpretation Comments Coronavirus (COVID-19) Not Detected (11/21/22 JONATHAN (test code = 9:39 AM) Coronavirus (COVID-19) JONATHAN) [facility] AND [id number] 15:39:00 Test Item Value Reference Range Interpretation Comments UA Color (test code = Light Yellow UA Color) *NA*(11/21/22 9:39 AM) [facility] AND [id number] 15:39:00 Test Item Value Reference Range Interpretation Comments UA Turbidity (test code = Clear (11/21/22 9:39 UA Turbidity) AM) [facility] AND [id number] 15:39:00 Test Item Value Reference Range Interpretation Comments UA Spec Grav (test code = UA Spec 1.014 1 Grav) [facility] AND [id number] 15:39:00 Test Item Value Reference Range Interpretation Comments UA pH (test code = UA pH) 6.0 1 5.0-8.0 [facility] AND [id number] 15:39:00 Test Item Value Reference Range Interpretation Comments UA Protein (test code = UA Protein) 30 mg/dL [facility] AND [id number] 15:39:00 Test Item Value Reference Range Interpretation Comments UA Glucose (test code = UA Negative mg/dL Glucose) [facility] AND [id number] 15:39:00 Test Item Value Reference Range Interpretation Comments UA Ketones (test code = UA Negative mg/dL Ketones) [facility] AND [id number] 15:39:00 Test Item Value Reference Range Interpretation Comments UA Bili (test code = Negative *NA*(11/21/22 UA Bili) 9:39 AM) [facility] AND [id number] 15:39:00 Test Item Value Reference Range Interpretation Comments UA Blood (test code = Negative (11/21/22 9:39 UA Blood) AM) [facility] AND [id number] 15:39:00 Test Item Value Reference Range Interpretation Comments UA Urobilinogen (test code = UA no gt 0.1-1.0 Urobilinogen) [facility] AND [id number] 15:39:00 Test Item Value Reference Range Interpretation Comments UA Nitrite (test code Negative (11/21/22 9:39 = UA Nitrite) AM) [facility] AND [id number] 15:39:00 Test Item Value Reference Range Interpretation Comments UA Leuk Est (test Negative (11/21/22 9:39 code = UA Leuk Est) AM) [facility] AND [id number] 15:39:00 Test Item Value Reference Range Interpretation Comments UA Sq Epi (test code = UA Sq Occasional /LPF Epi) [facility] AND [id number] 15:39:00 Test Item Value Reference Range Interpretation Comments UA WBC (test code = no gt See_Comment [Automa sheba message] The UA WBC) system which ge nerated this result transmit sheba reference range : <=5. The reference range was not used to interpr et this result as edy l/abnormal. [facility] AND [id number] 15:39:00 Test Item Value Reference Range Interpretation Comments UA RBC (test code = no gt See_Comment [Automa sheba message] The UA RBC) system which ge nerated this result transmit sheba reference range : <=2. The reference range was not used to interpr et this result as edy l/abnormal. [facility] AND [id number] 15:39:00 Test Item Value Reference Range Interpretation Comments UA Color (test code = Light Yellow UA Color) *NA*(11/21/22 9:39 AM) [facility] AND [id number] 15:39:00 Test Item Value Reference Range Interpretation Comments UA Turbidity (test code = Clear (11/21/22 9:39 UA Turbidity) AM) [facility] AND [id number] 15:39:00 Test Item Value Reference Range Interpretation Comments UA Spec Grav (test code = UA Spec 1.014 1 Grav) [facility] AND [id number] 15:39:00 Test Item Value Reference Range Interpretation Comments UA pH (test code = UA pH) 6.0 1 5.0-8.0 [facility] AND [id number] 15:39:00 Test Item Value Reference Range Interpretation Comments UA Protein (test code = UA Protein) 30 mg/dL [facility] AND [id number] 15:39:00 Test Item Value Reference Range Interpretation Comments UA Glucose (test code = UA Negative mg/dL Glucose) [facility] AND [id number] 15:39:00 Test Item Value Reference Range Interpretation Comments UA Ketones (test code = UA Negative mg/dL Ketones) [facility] AND [id number] 15:39:00 Test Item Value Reference Range Interpretation Comments UA Bili (test code = Negative *NA*(11/21/22 UA Bili) 9:39 AM) [facility] AND [id number] 15:39:00 Test Item Value Reference Range Interpretation Comments UA Blood (test code = Negative (11/21/22 9:39 UA Blood) AM) [facility] AND [id number] 15:39:00 Test Item Value Reference Range Interpretation Comments UA Urobilinogen (test code = UA no gt 0.1-1.0 Urobilinogen) [facility] AND [id number] 15:39:00 Test Item Value Reference Range Interpretation Comments UA Nitrite (test code Negative (11/21/22 9:39 = UA Nitrite) AM) [facility] AND [id number] 15:39:00 Test Item Value Reference Range Interpretation Comments UA Leuk Est (test Negative (11/21/22 9:39 code = UA Leuk Est) AM) [facility] AND [id number] 15:39:00 Test Item Value Reference Range Interpretation Comments UA Sq Epi (test code = UA Sq Occasional /LPF Epi) [facility] AND [id number] 15:39:00 Test Item Value Reference Range Interpretation Comments UA WBC (test code = no gt See_Comment [Automa sheba message] The UA WBC) system which ge nerated this result transmit sheba reference range : <=5. The reference range was not used to interpr et this result as edy l/abnormal. [facility] AND [id number] 15:39:00 Test Item Value Reference Range Interpretation Comments UA RBC (test code = no gt See_Comment [Automa sheba message] The UA RBC) system which ge nerated this result transmit sheba reference range : <=2. The reference range was not used to interpr et this result as edy l/abnormal. [facility] [id number] 15:39:00 Test Item Value Reference Range Interpretation Comments U Amph Scr (test code Negative *NA*(11/21/22 = U Amph Scr) 9:39 AM) [facility] [id number] 15:39:00 Test Item Value Reference Range Interpretation Comments U Analilia Scr (test code Positive *ABN*(11/21/22 = U Analilia Scr) 9:39 AM) [facility] [id number] 15:39:00 Test Item Value Reference Range Interpretation Comments U Benzodiaz Scr (test Negative *NA*(11/21/22 code = U Benzodiaz Scr) 9:39 AM) [id number] 15:39:00 Test Item Value Reference Range Interpretation Comments U Cocaine Scr (test Negative *NA*(11/21/22 code = U Cocaine Scr) 9:39 AM) [facility] [id number] 15:39:00 Test Item Value Reference Range Interpretation Comments U Cannab Scr (test Negative *NA*(11/21/22 code = U Cannab Scr) 9:39 AM) [facility] [id number] 15:39:00 Test Item Value Reference Range Interpretation Comments U Opiate Scr (test Positive *ABN*(11/21/22 code = U Opiate Scr) 9:39 AM) [facility] [id number] 15:39:00 Test Item Value Reference Range Interpretation Comments U Phencyclidine Scr (test Negative code = U Phencyclidine *NA*(11/21/22 9:39 Scr) AM) [facility] [id number] 15:39:00 Test Item Value Reference Range Interpretation Comments UDS Note (test code = See Note (11/21/22 9:39 UDS Note) AM) [facility] FallsannDR[facility] [id number] 15:39:00 Test Item Value Reference Range Interpretation Comments U Amph Scr (test code Negative *NA*(11/21/22 = U Amph Scr) 9:39 AM) [facility] FallsannDRUG [id number] 15:39:00 Test Item Value Reference Range Interpretation Comments U Analilia Scr (test code Positive *ABN*(11/21/22 = U Analilia Scr) 9:39 AM) [facility] [id number] 15:39:00 Test Item Value Reference Range Interpretation Comments U Benzodiaz Scr (test Negative *NA*(11/21/22 code = U Benzodiaz Scr) 9:39 AM) [facility] [id number] 15:39:00 Test Item Value Reference Range Interpretation Comments U Cocaine Scr (test Negative *NA*(11/21/22 code = U Cocaine Scr) 9:39 AM) [facility] [id number] 15:39:00 Test Item Value Reference Range Interpretation Comments U Cannab Scr (test Negative *NA*(11/21/22 code = U Cannab Scr) 9:39 AM) [facility] [id number] 15:39:00 Test Item Value Reference Range Interpretation Comments U Opiate Scr (test Positive *ABN*(11/21/22 code = U Opiate Scr) 9:39 AM) [facility] [id number] 15:39:00 Test Item Value Reference Range Interpretation Comments U Phencyclidine Scr (test Negative code = U Phencyclidine *NA*(11/21/22 9:39 Scr) AM) [facility] [id number] 15:39:00 Test Item Value Reference Range Interpretation Comments UDS Note (test code = See Note (11/21/22 9:39 UDS Note) AM) [id number] 15:39:00 Test Item Value Reference Range Interpretation Comments Coronavirus (COVID-19) Not Detected (11/21/22 JONATHAN (test code = 9:39 AM) Coronavirus (COVID-19) JONATHAN) [facility] [id number] 15:39:00 Test Item Value Reference Range Interpretation Comments Coronavirus (COVID-19) Not Detected (11/21/22 JONATHAN (test code = 9:39 AM) Coronavirus (COVID-19) JONATHAN) [facility] [id number] 15:39:00 Test Item Value Reference Range Interpretation Comments UA Color (test code = Light Yellow UA Color) *NA*(11/21/22 9:39 AM) [facility] [id number] 15:39:00 Test Item Value Reference Range Interpretation Comments UA Turbidity (test code = Clear (11/21/22 9:39 UA Turbidity) AM) [facility] AND [id number] 15:39:00 Test Item Value Reference Range Interpretation Comments UA Spec Grav (test code = UA Spec 1.014 1 Grav) [facility] AND [id number] 15:39:00 Test Item Value Reference Range Interpretation Comments UA pH (test code = UA pH) 6.0 1 5.0-8.0 [facility] AND [id number] 15:39:00 Test Item Value Reference Range Interpretation Comments UA Protein (test code = UA Protein) 30 mg/dL [facility] AND [id number] 15:39:00 Test Item Value Reference Range Interpretation Comments UA Glucose (test code = UA Negative mg/dL Glucose) [facility] AND [id number] 15:39:00 Test Item Value Reference Range Interpretation Comments UA Ketones (test code = UA Negative mg/dL Ketones) [facility] AND [id number] 15:39:00 Test Item Value Reference Range Interpretation Comments UA Bili (test code = Negative *NA*(11/21/22 UA Bili) 9:39 AM) [facility] AND [id number] 15:39:00 Test Item Value Reference Range Interpretation Comments UA Blood (test code = Negative (11/21/22 9:39 UA Blood) AM) [facility] AND [id number] 15:39:00 Test Item Value Reference Range Interpretation Comments UA Urobilinogen (test code = UA no gt 0.1-1.0 Urobilinogen) [facility] AND [id number] 15:39:00 Test Item Value Reference Range Interpretation Comments UA Nitrite (test code Negative (11/21/22 9:39 = UA Nitrite) AM) [facility] AND [id number] 15:39:00 Test Item Value Reference Range Interpretation Comments UA Leuk Est (test Negative (11/21/22 9:39 code = UA Leuk Est) AM) [facility] AND [id number] 15:39:00 Test Item Value Reference Range Interpretation Comments UA Sq Epi (test code = UA Sq Occasional /LPF Epi) [facility] AND [id number] 15:39:00 Test Item Value Reference Range Interpretation Comments UA WBC (test code = no gt See_Comment [Automa sheba message] The UA WBC) system which ge nerated this result transmit sheba reference range : <=5. The reference range was not used to interpr et this result as edy l/abnormal. [facility] AND [id number] 15:39:00 Test Item Value Reference Range Interpretation Comments UA RBC (test code = no gt See_Comment [Automa sheba message] The UA RBC) system which ge nerated this result transmit sheba reference range : <=2. The reference range was not used to interpr et this result as edy l/abnormal. [facility] AND [id number] 15:39:00 Test Item Value Reference Range Interpretation Comments UA Color (test code = Light Yellow UA Color) *NA*(11/21/22 9:39 AM) [facility] AND [id number] 15:39:00 Test Item Value Reference Range Interpretation Comments UA Turbidity (test code = Clear (11/21/22 9:39 UA Turbidity) AM) [facility] AND [id number] 15:39:00 Test Item Value Reference Range Interpretation Comments UA Spec Grav (test code = UA Spec 1.014 1 Grav) [facility] AND [id number] 15:39:00 Test Item Value Reference Range Interpretation Comments UA pH (test code = UA pH) 6.0 1 5.0-8.0 [facility] AND [id number] 15:39:00 Test Item Value Reference Range Interpretation Comments UA Protein (test code = UA Protein) 30 mg/dL [facility] AND [id number] 15:39:00 Test Item Value Reference Range Interpretation Comments UA Glucose (test code = UA Negative mg/dL Glucose) [facility] AND [id number] 15:39:00 Test Item Value Reference Range Interpretation Comments UA Ketones (test code = UA Negative mg/dL Ketones) [facility] AND [id number] 15:39:00 Test Item Value Reference Range Interpretation Comments UA Bili (test code = Negative *NA*(11/21/22 UA Bili) 9:39 AM) [facility] AND [id number] 15:39:00 Test Item Value Reference Range Interpretation Comments UA Blood (test code = Negative (11/21/22 9:39 UA Blood) AM) [facility] AND [id number] 15:39:00 Test Item Value Reference Range Interpretation Comments UA Urobilinogen (test code = UA no gt 0.1-1.0 Urobilinogen) [facility] AND [id number] 15:39:00 Test Item Value Reference Range Interpretation Comments UA Nitrite (test code Negative (11/21/22 9:39 = UA Nitrite) AM) [facility] AND [id number] 15:39:00 Test Item Value Reference Range Interpretation Comments UA Leuk Est (test Negative (11/21/22 9:39 code = UA Leuk Est) AM) [facility] AND [id number] 15:39:00 Test Item Value Reference Range Interpretation Comments UA Sq Epi (test code = UA Sq Occasional /LPF Epi) [facility] AND [id number] 15:39:00 Test Item Value Reference Range Interpretation Comments UA WBC (test code = no gt See_Comment [Automa sheba message] The UA WBC) system which ge nerated this result transmit sheba reference range : <=5. The reference range was not used to interpr et this result as edy l/abnormal. [facility] AND [id number] 15:39:00 Test Item Value Reference Range Interpretation Comments UA RBC (test code = no gt See_Comment [Automa sheba message] The UA RBC) system which ge nerated this result transmit sheba reference range : <=2. The reference range was not used to interpr et this result as edy l/abnormal. [id number] 15:39:00 Test Item Value Reference Range Interpretation Comments U Amph Scr (test code Negative *NA*(11/21/22 = U Amph Scr) 9:39 AM) [id number] 15:39:00 Test Item Value Reference Range Interpretation Comments U Analilia Scr (test code Positive *ABN*(11/21/22 = U Analilia Scr) 9:39 AM) [id number] 15:39:00 Test Item Value Reference Range Interpretation Comments U Benzodiaz Scr (test Negative *NA*(11/21/22 code = U Benzodiaz Scr) 9:39 AM) [facility] [id number] 15:39:00 Test Item Value Reference Range Interpretation Comments U Cocaine Scr (test Negative *NA*(11/21/22 code = U Cocaine Scr) 9:39 AM) [facility] [id number] 15:39:00 Test Item Value Reference Range Interpretation Comments U Cannab Scr (test Negative *NA*(11/21/22 code = U Cannab Scr) 9:39 AM) [facility] [id number] 15:39:00 Test Item Value Reference Range Interpretation Comments U Opiate Scr (test Positive *ABN*(11/21/22 code = U Opiate Scr) 9:39 AM) [facility] [id number] 15:39:00 Test Item Value Reference Range Interpretation Comments U Phencyclidine Scr (test Negative code = U Phencyclidine *NA*(11/21/22 9:39 Scr) AM) [facility] [id number] 15:39:00 Test Item Value Reference Range Interpretation Comments UDS Note (test code = See Note (11/21/22 9:39 UDS Note) AM) [facility] [id number] 15:39:00 Test Item Value Reference Range Interpretation Comments U Amph Scr (test code Negative *NA*(11/21/22 = U Amph Scr) 9:39 AM) [facility] [id number] 15:39:00 Test Item Value Reference Range Interpretation Comments U Analilia Scr (test code Positive *ABN*(11/21/22 = U Analilia Scr) 9:39 AM) [facility] [id number] 15:39:00 Test Item Value Reference Range Interpretation Comments U Benzodiaz Scr (test Negative *NA*(11/21/22 code = U Benzodiaz Scr) 9:39 AM) [facility] [id number] 15:39:00 Test Item Value Reference Range Interpretation Comments U Cocaine Scr (test Negative *NA*(11/21/22 code = U Cocaine Scr) 9:39 AM) [facility] [id number] 15:39:00 Test Item Value Reference Range Interpretation Comments U Cannab Scr (test Negative *NA*(11/21/22 code = U Cannab Scr) 9:39 AM) [facility] [id number] 15:39:00 Test Item Value Reference Range Interpretation Comments U Opiate Scr (test Positive *ABN*(11/21/22 code = U Opiate Scr) 9:39 AM) [facility] [id number] 15:39:00 Test Item Value Reference Range Interpretation Comments U Phencyclidine Scr (test Negative code = U Phencyclidine *NA*(11/21/22 9:39 Scr) AM) [facility] [id number] 15:39:00 Test Item Value Reference Range Interpretation Comments UDS Note (test code = See Note (11/21/22 9:39 UDS Note) AM) [facility] [id number] 15:39:00 Test Item Value Reference Range Interpretation Comments Coronavirus (COVID-19) Not Detected (11/21/22 JONATHAN (test code = 9:39 AM) Coronavirus (COVID-19) JONATHAN) [facility] [id number] 15:39:00 Test Item Value Reference Range Interpretation Comments Coronavirus (COVID-19) Not Detected (11/21/22 JONATHAN (test code = 9:39 AM) Coronavirus (COVID-19) JONATHAN) [facility] [id number] 15:39:00 Test Item Value Reference Range Interpretation Comments UA Color (test code = Light Yellow UA Color) *NA*(11/21/22 9:39 AM) [facility] [id number] 15:39:00 Test Item Value Reference Range Interpretation Comments UA Turbidity (test code = Clear (11/21/22 9:39 UA Turbidity) AM) [facility] [id number] 15:39:00 Test Item Value Reference Range Interpretation Comments UA Spec Grav (test code = UA Spec 1.014 1 Grav) [facility] [id number] 15:39:00 Test Item Value Reference Range Interpretation Comments UA pH (test code = UA pH) 6.0 1 5.0-8.0 [facility] [id number] 15:39:00 Test Item Value Reference Range Interpretation Comments UA Protein (test code = UA Protein) 30 mg/dL [facility] AND [id number] 15:39:00 Test Item Value Reference Range Interpretation Comments UA Glucose (test code = UA Negative mg/dL Glucose) [facility] AND [id number] 15:39:00 Test Item Value Reference Range Interpretation Comments UA Ketones (test code = UA Negative mg/dL Ketones) [facility] AND [id number] 15:39:00 Test Item Value Reference Range Interpretation Comments UA Bili (test code = Negative *NA*(11/21/22 UA Bili) 9:39 AM) [facility] AND [id number] 15:39:00 Test Item Value Reference Range Interpretation Comments UA Blood (test code = Negative (11/21/22 9:39 UA Blood) AM) [facility] AND [id number] 15:39:00 Test Item Value Reference Range Interpretation Comments UA Urobilinogen (test code = UA no gt 0.1-1.0 Urobilinogen) [facility] AND [id number] 15:39:00 Test Item Value Reference Range Interpretation Comments UA Nitrite (test code Negative (11/21/22 9:39 = UA Nitrite) AM) [facility] AND [id number] 15:39:00 Test Item Value Reference Range Interpretation Comments UA Leuk Est (test Negative (11/21/22 9:39 code = UA Leuk Est) AM) [facility] AND [id number] 15:39:00 Test Item Value Reference Range Interpretation Comments UA Sq Epi (test code = UA Sq Occasional /LPF Epi) [facility] AND [id number] 15:39:00 Test Item Value Reference Range Interpretation Comments UA WBC (test code = no gt See_Comment [Automa sheba message] The UA WBC) system which ge nerated this result transmit sheba reference range : <=5. The reference range was not used to interpr et this result as edy l/abnormal. [facility] AND [id number] 15:39:00 Test Item Value Reference Range Interpretation Comments UA RBC (test code = no gt See_Comment [Automa sheba message] The UA RBC) system which ge nerated this result transmit sheba reference range : <=2. The reference range was not used to interpr et this result as edy l/abnormal. [facility] AND [id number] 15:39:00 Test Item Value Reference Range Interpretation Comments UA Color (test code = Light Yellow UA Color) *NA*(11/21/22 9:39 AM) [facility] AND [id number] 15:39:00 Test Item Value Reference Range Interpretation Comments UA Turbidity (test code = Clear (11/21/22 9:39 UA Turbidity) AM) [facility] AND [id number] 15:39:00 Test Item Value Reference Range Interpretation Comments UA Spec Grav (test code = UA Spec 1.014 1 Grav) [facility] AND [id number] 15:39:00 Test Item Value Reference Range Interpretation Comments UA pH (test code = UA pH) 6.0 1 5.0-8.0 [facility] AND [id number] 15:39:00 Test Item Value Reference Range Interpretation Comments UA Protein (test code = UA Protein) 30 mg/dL [facility] AND [id number] 15:39:00 Test Item Value Reference Range Interpretation Comments UA Glucose (test code = UA Negative mg/dL Glucose) [facility] AND [id number] 15:39:00 Test Item Value Reference Range Interpretation Comments UA Ketones (test code = UA Negative mg/dL Ketones) [facility] AND [id number] 15:39:00 Test Item Value Reference Range Interpretation Comments UA Bili (test code = Negative *NA*(11/21/22 UA Bili) 9:39 AM) [facility] AND [id number] 15:39:00 Test Item Value Reference Range Interpretation Comments UA Blood (test code = Negative (11/21/22 9:39 UA Blood) AM) [facility] AND [id number] 15:39:00 Test Item Value Reference Range Interpretation Comments UA Urobilinogen (test code = UA no gt 0.1-1.0 Urobilinogen) [facility] AND [id number] 15:39:00 Test Item Value Reference Range Interpretation Comments UA Nitrite (test code Negative (11/21/22 9:39 = UA Nitrite) AM) [facility] AND [id number] 15:39:00 Test Item Value Reference Range Interpretation Comments UA Leuk Est (test Negative (11/21/22 9:39 code = UA Leuk Est) AM) [facility] AND [id number] 15:39:00 Test Item Value Reference Range Interpretation Comments UA Sq Epi (test code = UA Sq Occasional /LPF Epi) [facility] AND [id number] 15:39:00 Test Item Value Reference Range Interpretation Comments UA WBC (test code = no gt See_Comment [Automa sheba message] The UA WBC) system which ge nerated this result transmit sheba reference range : <=5. The reference range was not used to interpr et this result as edy l/abnormal. [facility] AND [id number] 15:39:00 Test Item Value Reference Range Interpretation Comments UA RBC (test code = no gt See_Comment [Automa sheba message] The UA RBC) system which ge nerated this result transmit sheba reference range : <=2. The reference range was not used to interpr et this result as edy l/abnormal. [id number] 15:39:00 Test Item Value Reference Range Interpretation Comments U Amph Scr (test code Negative *NA*(11/21/22 = U Amph Scr) 9:39 AM) [facility] [id number] 15:39:00 Test Item Value Reference Range Interpretation Comments U Analilia Scr (test code Positive *ABN*(11/21/22 = U Analilia Scr) 9:39 AM) [facility] [id number] 15:39:00 Test Item Value Reference Range Interpretation Comments U Benzodiaz Scr (test Negative *NA*(11/21/22 code = U Benzodiaz Scr) 9:39 AM) [facility] [id number] 15:39:00 Test Item Value Reference Range Interpretation Comments U Cocaine Scr (test Negative *NA*(11/21/22 code = U Cocaine Scr) 9:39 AM) [facility] [id number] 15:39:00 Test Item Value Reference Range Interpretation Comments U Cannab Scr (test Negative *NA*(11/21/22 code = U Cannab Scr) 9:39 AM) [facility] [id number] 15:39:00 Test Item Value Reference Range Interpretation Comments U Opiate Scr (test Positive *ABN*(11/21/22 code = U Opiate Scr) 9:39 AM) [facility] [id number] 15:39:00 Test Item Value Reference Range Interpretation Comments U Phencyclidine Scr (test Negative code = U Phencyclidine *NA*(11/21/22 9:39 Scr) AM) [facility] [id number] 15:39:00 Test Item Value Reference Range Interpretation Comments UDS Note (test code = See Note (11/21/22 9:39 UDS Note) AM) [facility] [id number] 15:39:00 Test Item Value Reference Range Interpretation Comments U Amph Scr (test code Negative *NA*(11/21/22 = U Amph Scr) 9:39 AM) [facility] [id number] 15:39:00 Test Item Value Reference Range Interpretation Comments U Analilia Scr (test code Positive *ABN*(11/21/22 = U Analilia Scr) 9:39 AM) [facility] [id number] 15:39:00 Test Item Value Reference Range Interpretation Comments U Benzodiaz Scr (test Negative *NA*(11/21/22 code = U Benzodiaz Scr) 9:39 AM) [facility] [id number] 15:39:00 Test Item Value Reference Range Interpretation Comments U Cocaine Scr (test Negative *NA*(11/21/22 code = U Cocaine Scr) 9:39 AM) [facility] [id number] 15:39:00 Test Item Value Reference Range Interpretation Comments U Cannab Scr (test Negative *NA*(11/21/22 code = U Cannab Scr) 9:39 AM) [facility] [id number] 15:39:00 Test Item Value Reference Range Interpretation Comments U Opiate Scr (test Positive *ABN*(11/21/22 code = U Opiate Scr) 9:39 AM) [facility] [id number] 15:39:00 Test Item Value Reference Range Interpretation Comments U Phencyclidine Scr (test Negative code = U Phencyclidine *NA*(2/21/23 9:39 Scr) AM) [facility] [id number] 15:39:00 Test Item Value Reference Range Interpretation Comments UDS Note (test code = See Note (11/21/22 9:39 UDS Note) AM) [facility] [id number] 15:39:00 Test Item Value Reference Range Interpretation Comments Coronavirus (COVID-19) Not Detected (11/21/22 JONATHAN (test code = 9:39 AM) Coronavirus (COVID-19) JONATHAN) [facility] [id number] 15:39:00 Test Item Value Reference Range Interpretation Comments Coronavirus (COVID-19) Not Detected (11/21/22 JONATHAN (test code = 9:39 AM) Coronavirus (COVID-19) JONATHAN) [facility] [id number] 15:39:00 Test Item Value Reference Range Interpretation Comments UA Color (test code = Light Yellow UA Color) *NA*(11/21/22 9:39 AM) [facility] [id number] 15:39:00 Test Item Value Reference Range Interpretation Comments UA Turbidity (test code = Clear (11/21/22 9:39 UA Turbidity) AM) [facility] [id number] 15:39:00 Test Item Value Reference Range Interpretation Comments UA Spec Grav (test code = UA Spec 1.014 1 Grav) [facility] [id number] 15:39:00 Test Item Value Reference Range Interpretation Comments UA pH (test code = UA pH) 6.0 1 5.0-8.0 [facility] [id number] 15:39:00 Test Item Value Reference Range Interpretation Comments UA Protein (test code = UA Protein) 30 mg/dL [facility] [id number] 15:39:00 Test Item Value Reference Range Interpretation Comments UA Glucose (test code = UA Negative mg/dL Glucose) [facility] [id number] 15:39:00 Test Item Value Reference Range Interpretation Comments UA Ketones (test code = UA Negative mg/dL Ketones) [facility] [id number] 15:39:00 Test Item Value Reference Range Interpretation Comments UA Bili (test code = Negative *NA*(11/21/22 UA Bili) 9:39 AM) [facility] [id number] 15:39:00 Test Item Value Reference Range Interpretation Comments UA Blood (test code = Negative (11/21/22 9:39 UA Blood) AM) [facility] [id number] 15:39:00 Test Item Value Reference Range Interpretation Comments UA Urobilinogen (test code = UA no gt 0.1-1.0 Urobilinogen) [facility] [id number] 15:39:00 Test Item Value Reference Range Interpretation Comments UA Nitrite (test code Negative (11/21/22 9:39 = UA Nitrite) AM) [facility] [id number] 15:39:00 Test Item Value Reference Range Interpretation Comments UA Leuk Est (test Negative (11/21/22 9:39 code = UA Leuk Est) AM) [facility] [id number] 15:39:00 Test Item Value Reference Range Interpretation Comments UA Sq Epi (test code = UA Sq Occasional /LPF Epi) [facility] [id number] 15:39:00 Test Item Value Reference Range Interpretation Comments UA WBC (test code = no gt See_Comment [Automa sheba message] The UA WBC) system which ge nerated this result transmit sheba reference range : <=5. The reference range was not used to interpr et this result as edy l/abnormal. [facility] [id number] 15:39:00 Test Item Value Reference Range Interpretation Comments UA RBC (test code = no gt See_Comment [Automa sheba message] The UA RBC) system which ge nerated this result transmit sheba reference range : <=2. The reference range was not used to interpr et this result as edy l/abnormal. [facility] [id number] 15:39:00 Test Item Value Reference Range Interpretation Comments UA Color (test code = Light Yellow UA Color) *NA*(11/21/22 9:39 AM) [facility] [id number] 15:39:00 Test Item Value Reference Range Interpretation Comments UA Turbidity (test code = Clear (11/21/22 9:39 [facility]A Turbidity) AM) [facility] [id number] 15:39:00 Test Item Value Reference Range Interpretation Comments UA Spec Grav (test code = UA Spec 1.014 1 Grav) [facility] AND [id number] 15:39:00 Test Item Value Reference Range Interpretation Comments UA pH (test code = UA pH) 6.0 1 5.0-8.0 [facility] AND [id number] 15:39:00 Test Item Value Reference Range Interpretation Comments UA Protein (test code = UA Protein) 30 mg/dL [facility] AND [id number] 15:39:00 Test Item Value Reference Range Interpretation Comments UA Glucose (test code = UA Negative mg/dL Glucose) [facility] AND [id number] 15:39:00 Test Item Value Reference Range Interpretation Comments UA Ketones (test code = UA Negative mg/dL Ketones) [facility] AND [id number] 15:39:00 Test Item Value Reference Range Interpretation Comments UA Bili (test code = Negative *NA*(11/21/22 UA Bili) 9:39 AM) [facility] AND [id number] 15:39:00 Test Item Value Reference Range Interpretation Comments UA Blood (test code = Negative (11/21/22 9:39 UA Blood) AM) [facility] AND [id number] 15:39:00 Test Item Value Reference Range Interpretation Comments UA Urobilinogen (test code = UA no gt 0.1-1.0 Urobilinogen) [facility] AND [id number] 15:39:00 Test Item Value Reference Range Interpretation Comments UA Nitrite (test code Negative (11/21/22 9:39 = UA Nitrite) AM) [facility] AND [id number] 15:39:00 Test Item Value Reference Range Interpretation Comments UA Leuk Est (test Negative (11/21/22 9:39 code = UA Leuk Est) AM) [facility] AND [id number] 15:39:00 Test Item Value Reference Range Interpretation Comments UA Sq Epi (test code = UA Sq Occasional /LPF Epi) [facility] AND [id number] 15:39:00 Test Item Value Reference Range Interpretation Comments UA WBC (test code = no gt See_Comment [Automa sheba message] The UA WBC) system which ge nerated this result transmit sheba reference range : <=5. The reference range was not used to interpr et this result as edy l/abnormal. [facility] AND [id number] 15:39:00 Test Item Value Reference Range Interpretation Comments UA RBC (test code = no gt See_Comment [Automa sheba message] The UA RBC) system which ge nerated this result transmit sheba reference range : <=2. The reference range was not used to interpr et this result as edy l/abnormal. [facility] [id number] 12:50:00 Test Item Value Reference Range Interpretation Comments ABO/Rh (test code = ABO/Rh) O POS [facility] [id number] 12:50:00 Test Item Value Reference Range Interpretation Comments Antibody Scrn (test Negative (11/21/22 6:50 code = Antibody Scrn) AM) [facility]SnuqqbpRHQPNNOAD5468-11-49 12:50:00 Test Item Value Reference Range Interpretation Comments Ethanol Lvl (test code = Ethanol Lvl) no gt [facility]anoSsgngvnWHSDDAMXC6195-53-22 12:50:00 Test Item Value Reference Range Interpretation Comments Etoh (%) (test code = Etoh (%)) no gt [facility] PlanoQbpprrvBXBYMPTUO2119-99-24 12:50:00 Test Item Value Reference Range Interpretation Comments Lactic Acid Lvl (test code = Lactic 0.7 0.5-2.2 Acid Lvl) [facility]anoMhqjwfcOBHJBQBEF2397-71-85 12:50:00 Test Item Value Reference Range Interpretation Comments Total Protein (test code = Total 6.1 6.4-8.4 Protein) [facility]anoEzsynntFALOSSAQB9930-29-64 12:50:00 Test Item Value Reference Range Interpretation Comments Albumin Lvl (test code = Albumin Lvl) 2.9 3.5-5.0 [facility] PlanoAgzierhHOOSYRVYN6275-79-53 12:50:00 Test Item Value Reference Range Interpretation Comments Globulin (test code = Globulin) 3.2 2.7-4.2 [facility]anoHrdaayvNSSTDUQEK3409-07-37 12:50:00 Test Item Value Reference Range Interpretation Comments A/G Ratio (test code = A/G Ratio) 0.9 1 0.7-1.6 [facility] PlanoDyxpkhoXZXONNIOE8447-65-33 12:50:00 Test Item Value Reference Range Interpretation Comments ALT (test code = ALT) 16 See_Comment [Auto mated message] The system which ge nerated this result transmit sheba reference range : <=65. The reference range was not used to interpr et this result as edy l/abnormal. [facility] VwwouggWSHQINESW0915-24-59 12:50:00 Test Item Value Reference Range Interpretation Comments AST (test code = AST) 15 See_Comment [Auto mated message] The system which ge nerated this result transmit sheba reference range : <=37. The reference range was not used to interpr et this result as edy l/abnormal. [facility] FoldpcnLQKXWXMXX2075-73-59 12:50:00 Test Item Value Reference Range Interpretation Comments Alk Phos (test code = Alk Phos) 96 39-136 [facility] SncsdbnNCGWEDTSI7671-77-97 12:50:00 Test Item Value Reference Range Interpretation Comments Bili Total (test code = Bili Total) 0.2 0.2-1.3 [facility] KmvedduRWEZEIEXG2569-02-12 12:50:00 Test Item Value Reference Range Interpretation Comments Bili Direct (test code no gt See_Comment [Aut omated message] The = Bili Direct) system which generated this result tra nsmitted reference range : <=0.3. The reference r christiano was not used to int erpret this result as edy l/abnormal. [facility] [id number] 12:50:00 Test Item Value Reference Range Interpretation Comments Bili Indirect Unable to See_Comment [Automated (test code = Bili Calculate message] T he system Indirect) which generated this result transmitted reference range : <=1.0. The reference range was not used to interpret this result as normal/abnormal . [facility] VtepalvDQHDBKFVM4506-75-91 12:50:00 Test Item Value Reference Range Interpretation Comments HS Troponin I (test code = HS Troponin 15 I) [facility] FallsKmlvqwxKLEUPRISS2635-06-59 12:50:00 Test Item Value Reference Range Interpretation Comments pH Justin (test code = pH Justin) 7.35 1 7.28-7.42 [facility] FallsOhsfxplXXBTCKRCR6494-19-79 12:50:00 Test Item Value Reference Range Interpretation Comments pCO2 Justin (test code = pCO2 Justin) 55 38-52 [place] 087233-02-21 12:50:00 Test Item Value Reference Range Interpretation Comments pO2 Justin (test code = pO2 Justin) 43 20-49 [place] 087233-02-21 12:50:00 Test Item Value Reference Range Interpretation Comments HCO3 Justin (test code = HCO3 Justin) 30 22-26 [place] [address]-02-21 12:50:00 Test Item Value Reference Range Interpretation Comments BE Justin (test code = BE Justin) 3 -2-2 [place] 087233-02-21 12:50:00 Test Item Value Reference Range Interpretation Comments O2 Sat Justin (calc) (test code = O2 Sat 75.9 40.0-70.0 Justin (calc)) [place] 087233-02-21 12:50:00 Test Item Value Reference Range Interpretation Comments Temp Justin (test code = Temp Justin) 37.0 [place] 222913-02-21 12:50:00 Test Item Value Reference Range Interpretation Comments ACT (TEG) Rapid (test code = ACT (TEG) 113 s 86-118 Rapid) [place] 222913-02-21 12:50:00 Test Item Value Reference Range Interpretation Comments Split Point Rapid (test code = Split 0.6 min Point Rapid) [place] 222913-02-21 12:50:00 Test Item Value Reference Range Interpretation Comments R-time Rapid (test code = R-time 0.7 min 0.4-0.7 Rapid) [place] 222913-02-21 12:50:00 Test Item Value Reference Range Interpretation Comments K-time Rapid (test code = K-time 1.1 min 0.6-2.3 Rapid) [place] 222913-02-21 12:50:00 Test Item Value Reference Range Interpretation Comments Angle Rapid (test code = Angle 78 degrees 64-80 Rapid) [place] 222913-02-21 12:50:00 Test Item Value Reference Range Interpretation Comments Max Amplitude Rapid (test code = Max 65 mm 52-71 Amplitude Rapid) [place] 222913-02-21 12:50:00 Test Item Value Reference Range Interpretation Comments G-value Rapid (test code = G-value 9.2 5.0-11.6 Rapid) [place] 222913-02-21 12:50:00 Test Item Value Reference Range Interpretation Comments Estimated % Lysis Rapid 0.0 See_Comment [Au tomated message] The (test code = Estimated syste m which generated % Lysis Rapid) this result t ransmitted reference range : <=7.5. The reference r christiano was not used to int erpret this result as normal/abnormal . [facility] FallsPtzzjbmLTCFLEJGZA3075-50-19 12:50:00 Test Item Value Reference Range Interpretation Comments Plt Morph (test code = See Note 1(11/21/22 Plt Morph) 6:50 AM) [facility] FallsGynvwscPINKYYIEEV2706-53-76 12:50:00 Test Item Value Reference Range Interpretation Comments Stomatocyte (test code = Stomatocyte) slight [facility] [employer] 1 [id number] 12:50:00 Test Item Value Reference Range Interpretation Comments ABO/Rh (test code = ABO/Rh) O POS [facility] [employer] 1 [id number] 12:50:00 Test Item Value Reference Range Interpretation Comments Antibody Scrn (test Negative (11/21/22 6:50 code = Antibody Scrn) AM) [facility] FallsRfmzuimIRLPVBGKO0882-62-22 12:50:00 Test Item Value Reference Range Interpretation Comments Ethanol Lvl (test code = Ethanol Lvl) no gt [facility] FallsJqaylgxCZKUHOWXI1929-65-52 12:50:00 Test Item Value Reference Range Interpretation Comments Etoh (%) (test code = Etoh (%)) no gt [facility] FallsCiqagztSRCFEOWMN9419-02-04 12:50:00 Test Item Value Reference Range Interpretation Comments Lactic Acid Lvl (test code = Lactic 0.7 0.5-2.2 Acid Lvl) [facility] FallsHslgibwJHBPTNIZZ5425-01-51 12:50:00 Test Item Value Reference Range Interpretation Comments Total Protein (test code = Total 6.1 6.4-8.4 Protein) [facility] FallsJqiygtxHCUKJDRDR7386-89-78 12:50:00 Test Item Value Reference Range Interpretation Comments Albumin Lvl (test code = Albumin Lvl) 2.9 3.5-5.0 [facility] FallsZraqwwfDTEFHEAWZ0915-33-80 12:50:00 Test Item Value Reference Range Interpretation Comments Globulin (test code = Globulin) 3.2 2.7-4.2 [place] 087233-02-21 12:50:00 Test Item Value Reference Range Interpretation Comments A/G Ratio (test code = A/G Ratio) 0.9 1 0.7-1.6 [place] [address]-02-21 12:50:00 Test Item Value Reference Range Interpretation Comments ALT (test code = ALT) 16 See_Comment [Auto mated message] The system which ge nerated this result transmit sheba reference range : <=65. The reference range was not used to interpr et this result as edy l/abnormal. [place] 087233-02-21 12:50:00 Test Item Value Reference Range Interpretation Comments AST (test code = AST) 15 See_Comment [Auto mated message] The system which ge nerated this result transmit sheba reference range : <=37. The reference range was not used to interpr et this result as edy l/abnormal. [place] 087233-02-21 12:50:00 Test Item Value Reference Range Interpretation Comments Alk Phos (test code = Alk Phos) 96 39-136 [place] 087233-02-21 12:50:00 Test Item Value Reference Range Interpretation Comments Bili Total (test code = Bili Total) 0.2 0.2-1.3 [place] [address]-02-21 12:50:00 Test Item Value Reference Range Interpretation Comments Bili Direct (test code no gt See_Comment [Aut omated message] The = Bili Direct) system which generated this result tra nsmitted reference range : <=0.3. The reference r christiano was not used to int erpret this result as edy l/abnormal. [place] 087233-02-21 12:50:00 Test Item Value Reference Range Interpretation Comments Bili Indirect Unable to See_Comment [Automated (test code = Bili Calculate message] T he system Indirect) which generated this result transmitted reference range : <=1.0. The reference range was not used to interpret this result as normal/abnormal . [place] 087233-02-21 12:50:00 Test Item Value Reference Range Interpretation Comments HS Troponin I (test code = HS Troponin 15 I) [place] 087233-02-21 12:50:00 Test Item Value Reference Range Interpretation Comments pH Justin (test code = pH Justin) 7.35 1 7.28-7.42 [place] 087233-02-21 12:50:00 Test Item Value Reference Range Interpretation Comments pCO2 Justin (test code = pCO2 Justin) 55 38-52 [place] 087233-02-21 12:50:00 Test Item Value Reference Range Interpretation Comments pO2 Justin (test code = pO2 Justin) 43 20-49 [place] 087233-02-21 12:50:00 Test Item Value Reference Range Interpretation Comments HCO3 Justin (test code = HCO3 Justin) 30 22-26 [place] [address]-02-21 12:50:00 Test Item Value Reference Range Interpretation Comments BE Justin (test code = BE Justin) 3 -2-2 [place] 087233-02-21 12:50:00 Test Item Value Reference Range Interpretation Comments O2 Sat Justin (calc) (test code = O2 Sat 75.9 40.0-70.0 Justin (calc)) [facility]anoNvephwjIPNMBSBKF1654-89-89 12:50:00 Test Item Value Reference Range Interpretation Comments Temp Justin (test code = Temp Justin) 37.0 [place] 222913-02-21 12:50:00 Test Item Value Reference Range Interpretation Comments ACT (TEG) Rapid (test code = ACT (TEG) 113 s 86-118 Rapid) [place] 222913-02-21 12:50:00 Test Item Value Reference Range Interpretation Comments Split Point Rapid (test code = Split 0.6 min Point Rapid) [place] 222913-02-21 12:50:00 Test Item Value Reference Range Interpretation Comments R-time Rapid (test code = R-time 0.7 min 0.4-0.7 Rapid) [place] 222913-02-21 12:50:00 Test Item Value Reference Range Interpretation Comments K-time Rapid (test code = K-time 1.1 min 0.6-2.3 Rapid) [place] 222913-02-21 12:50:00 Test Item Value Reference Range Interpretation Comments Angle Rapid (test code = Angle 78 degrees 64-80 Rapid) [place] 222913-02-21 12:50:00 Test Item Value Reference Range Interpretation Comments Max Amplitude Rapid (test code = Max 65 mm 52-71 Amplitude Rapid) [place] 222913-02-21 12:50:00 Test Item Value Reference Range Interpretation Comments G-value Rapid (test code = G-value 9.2 5.0-11.6 Rapid) [facility] FallsKejlvilFILSWGVAYL3692-15-23 12:50:00 Test Item Value Reference Range Interpretation Comments Estimated % Lysis Rapid 0.0 See_Comment [Au tomated message] The (test code = Estimated syste m which generated % Lysis Rapid) this result t ransmitted reference range : <=7.5. The reference r christiano was not used to int erpret this result as normal/abnormal . [facility] AvljwioPDYDKRSUBR2771-68-55 12:50:00 Test Item Value Reference Range Interpretation Comments Plt Morph (test code = See Note 1(11/21/22 Plt Morph) 6:50 AM) [facility] FallsBxbdyorUZSXOWOTQE0571-98-92 12:50:00 Test Item Value Reference Range Interpretation Comments Stomatocyte (test code = Stomatocyte) slight [facility] [employer] 1 [id number] 12:50:00 Test Item Value Reference Range Interpretation Comments ABO/Rh (test code = ABO/Rh) O POS [facility] [employer] 1 [id number] 12:50:00 Test Item Value Reference Range Interpretation Comments Antibody Scrn (test Negative (11/21/22 6:50 code = Antibody Scrn) AM) [facility] [employer] 1 [id number] 12:50:00 Test Item Value Reference Range Interpretation Comments ABO/Rh (test code = ABO/Rh) O POS [facility] [employer] 1 [id number] 12:50:00 Test Item Value Reference Range Interpretation Comments Antibody Scrn (test Negative (11/21/22 6:50 code = Antibody Scrn) AM) [facility] [employer]addle BoardsCARDIAC [id number] 12:50:00 Test Item Value Reference Range Interpretation Comments HS Troponin I (test code = HS Troponin 15 I) [facility] [id number] 12:50:00 Test Item Value Reference Range Interpretation Comments Glucose Lvl (test code = Glucose Lvl) 99 70-99 [facility] groSolar2023-02-21 12:50:00 Test Item Value Reference Range Interpretation Comments BUN (test code = BUN) 38 7-22 [place] 678383-02-21 12:50:00 Test Item Value Reference Range Interpretation Comments Creatinine Lvl (test code = Creatinine 2.38 0.50-1.40 Lvl) [place] 678383-02-21 12:50:00 Test Item Value Reference Range Interpretation Comments Sodium Lvl (test code = Sodium Lvl) 140 135-145 [place] 678383-02-21 12:50:00 Test Item Value Reference Range Interpretation Comments Potassium Lvl (test code = Potassium 3.9 3.5-5.1 Lvl) [place] 678383-02-21 12:50:00 Test Item Value Reference Range Interpretation Comments Chloride Lvl (test code = Chloride Lvl) 107 95-109 [place] 678383-02-21 12:50:00 Test Item Value Reference Range Interpretation Comments CO2 (test code = CO2) 27 24-32 [place] 678383-02-21 12:50:00 Test Item Value Reference Range Interpretation Comments Calcium Lvl (test code = Calcium Lvl) 8.1 8.5-10.5 [place] 678383-02-21 12:50:00 Test Item Value Reference Range Interpretation Comments AGAP (test code = AGAP) 9.9 10.0-20.0 [place] 678383-02-21 12:50:00 Test Item Value Reference Range Interpretation Comments eGFR (test code = eGFR) 20 [place] 678383-02-21 12:50:00 Test Item Value Reference Range Interpretation Comments Lactic Acid Lvl (test code = Lactic 0.7 0.5-2.2 Acid Lvl) [place] 678383-02-21 12:50:00 Test Item Value Reference Range Interpretation Comments Total Protein (test code = Total 6.1 6.4-8.4 Protein) [place] 678383-02-21 12:50:00 Test Item Value Reference Range Interpretation Comments Albumin Lvl (test code = Albumin Lvl) 2.9 3.5-5.0 [place] 678383-02-21 12:50:00 Test Item Value Reference Range Interpretation Comments Globulin (test code = Globulin) 3.2 2.7-4.2 [place] 678383-02-21 12:50:00 Test Item Value Reference Range Interpretation Comments A/G Ratio (test code = A/G Ratio) 0.9 1 0.7-1.6 [facility] [id number] 12:50:00 Test Item Value Reference Range Interpretation Comments ALT (test code = ALT) 16 See_Comment [Auto mated message] The system which ge nerated this result transmit sheba reference range : <=65. The reference range was not used to interpr et this result as edy l/abnormal. [facility] FallsOrbFlex [id number] 12:50:00 Test Item Value Reference Range Interpretation Comments AST (test code = AST) 15 See_Comment [Auto mated message] The system which ge nerated this result transmit sheba reference range : <=37. The reference range was not used to interpr et this result as edy l/abnormal. [facility] [id number] 12:50:00 Test Item Value Reference Range Interpretation Comments Alk Phos (test code = Alk Phos) 96 39-136 [facility] FallsOrbFlex [id number] 12:50:00 Test Item Value Reference Range Interpretation Comments Bili Total (test code = Bili Total) 0.2 0.2-1.3 [facility] [id number] 12:50:00 Test Item Value Reference Range Interpretation Comments Bili Direct (test code no gt See_Comment [Aut omated message] The = Bili Direct) system which generated this result tra nsmitted reference range : <=0.3. The reference r christiano was not used to int erpret this result as edy l/abnormal. [facility] [id number] 12:50:00 Test Item Value Reference Range Interpretation Comments Bili Indirect Unable to See_Comment [Automated (test code = Bili Calculate message] T he system Indirect) which generated this result transmitted reference range : <=1.0. The reference range was not used to interpret this result as normal/abnormal . [facility] CenterOifrqrqDSLDXELBD7322-87-09 12:50:00 Test Item Value Reference Range Interpretation Comments Ethanol Lvl (test code = Ethanol Lvl) no [place] [address]-02-21 12:50:00 Test Item Value Reference Range Interpretation Comments Etoh (%) (test code = Etoh (%)) no gt [place] 087233-02-21 12:50:00 Test Item Value Reference Range Interpretation Comments Lactic Acid Lvl (test code = Lactic 0.7 0.5-2.2 Acid Lvl) [place] [address]-02-21 12:50:00 Test Item Value Reference Range Interpretation Comments Total Protein (test code = Total 6.1 6.4-8.4 Protein) [place] 087233-02-21 12:50:00 Test Item Value Reference Range Interpretation Comments Albumin Lvl (test code = Albumin Lvl) 2.9 3.5-5.0 [place] [address]-02-21 12:50:00 Test Item Value Reference Range Interpretation Comments Globulin (test code = Globulin) 3.2 2.7-4.2 [place] [address]-02-21 12:50:00 Test Item Value Reference Range Interpretation Comments A/G Ratio (test code = A/G Ratio) 0.9 1 0.7-1.6 [place] [address]-02-21 12:50:00 Test Item Value Reference Range Interpretation Comments ALT (test code = ALT) 16 See_Comment [Auto mated message] The system which ge nerated this result transmit sheba reference range : <=65. The reference range was not used to interpr et this result as edy l/abnormal. [place] [address]-02-21 12:50:00 Test Item Value Reference Range Interpretation Comments AST (test code = AST) 15 See_Comment [Auto mated message] The system which ge nerated this result transmit sheba reference range : <=37. The reference range was not used to interpr et this result as edy l/abnormal. [facility] PlanoHbpmsvcIEUBETOOG9732-12-45 12:50:00 Test Item Value Reference Range Interpretation Comments Alk Phos (test code = Alk Phos) 96 39-136 [place] [address]-02-21 12:50:00 Test Item Value Reference Range Interpretation Comments Bili Total (test code = Bili Total) 0.2 0.2-1.3 [place] 087233-02-21 12:50:00 Test Item Value Reference Range Interpretation Comments Bili Direct (test code no gt See_Comment [Aut omated message] The = Bili Direct) system which generated this result tra nsmitted reference range : <=0.3. The reference r christiano was not used to int erpret this result as edy l/abnormal. [facility] PlanoWutjcrhMXBIGLCSJ5579-68-58 12:50:00 Test Item Value Reference Range Interpretation Comments Bili Indirect Unable to See_Comment [Automated (test code = Bili Calculate message] T he system Indirect) which generated this result transmitted reference range : <=1.0. The reference range was not used to interpret this result as normal/abnormal . [facility] PlanoCngzabsUVMRGEBDW5591-98-01 12:50:00 Test Item Value Reference Range Interpretation Comments HS Troponin I (test code = HS Troponin 15 I) [facility] PlanoEyyxbhbJWYUCKSPA3248-03-08 12:50:00 Test Item Value Reference Range Interpretation Comments pH Justin (test code = pH Justin) 7.35 1 7.28-7.42 [place] 087233-02-21 12:50:00 Test Item Value Reference Range Interpretation Comments pCO2 Justin (test code = pCO2 Justin) 55 38-52 [facility] PlanoWdgsgtwMMVJKGMLQ8010-88-96 12:50:00 Test Item Value Reference Range Interpretation Comments pO2 Justin (test code = pO2 Justin) 43 20-49 [place] 087233-02-21 12:50:00 Test Item Value Reference Range Interpretation Comments HCO3 Justin (test code = HCO3 Justin) 30 22-26 [facility]SrymufbHAHPZHTKZ2454-37-98 12:50:00 Test Item Value Reference Range Interpretation Comments BE Justin (test code = BE Justin) 3 -2-2 [facility]anoGeksbnlRVEYZTNZY3232-90-95 12:50:00 Test Item Value Reference Range Interpretation Comments O2 Sat Justin (calc) (test code = O2 Sat 75.9 40.0-70.0 Justin (calc)) [facility]anoAjnynmiXCWOIADGN8351-28-36 12:50:00 Test Item Value Reference Range Interpretation Comments Temp Justin (test code = Temp Justin) 37.0 [place] 222913-02-21 12:50:00 Test Item Value Reference Range Interpretation Comments ACT (TEG) Rapid (test code = ACT (TEG) 113 s 86-118 Rapid) [facility]zm[facility]qsNRWVJUKLMD4507-50-66 12:50:00 Test Item Value Reference Range Interpretation Comments Split Point Rapid (test code = Split 0.6 min Point Rapid) [place] 222913-02-21 12:50:00 Test Item Value Reference Range Interpretation Comments R-time Rapid (test code = R-time 0.7 min 0.4-0.7 Rapid) [place] [address]-02-21 12:50:00 Test Item Value Reference Range Interpretation Comments K-time Rapid (test code = K-time 1.1 min 0.6-2.3 Rapid) [place] [address]-02-21 12:50:00 Test Item Value Reference Range Interpretation Comments Angle Rapid (test code = Angle 78 degrees 64-80 Rapid) [place] [address]-02-21 12:50:00 Test Item Value Reference Range Interpretation Comments Max Amplitude Rapid (test code = Max 65 mm 52-71 Amplitude Rapid) [place] [address]-02-21 12:50:00 Test Item Value Reference Range Interpretation Comments G-value Rapid (test code = G-value 9.2 5.0-11.6 Rapid) [place] [address]-02-21 12:50:00 Test Item Value Reference Range Interpretation Comments Estimated % Lysis Rapid 0.0 See_Comment [Au tomated message] The (test code = Estimated syste m which generated % Lysis Rapid) this result t ransmitted reference range : <=7.5. The reference r christiano was not used to int erpret this result as normal/abnormal . [facility] CenterAkaqjtoQIVLOGEMHH1210-92-65 12:50:00 Test Item Value Reference Range Interpretation Comments Plt Morph (test code = See Note 1(11/21/22 Plt Morph) 6:50 AM) [place] 222913-02-21 12:50:00 Test Item Value Reference Range Interpretation Comments Stomatocyte (test code = Stomatocyte) slight [place] [address]-02-21 12:50:00 Test Item Value Reference Range Interpretation Comments WBC X 10x3 (test code = WBC X 10x3) 8.7 3.7-10.4 [place] 222913-02-21 12:50:00 Test Item Value Reference Range Interpretation Comments RBC X 10x6 (test code = RBC X 10x6) 3.56 4.20-5.40 [place] 222913-02-21 12:50:00 Test Item Value Reference Range Interpretation Comments Hgb (test code = Hgb) 10.4 12.0-16.0 [place] [address]-02-21 12:50:00 Test Item Value Reference Range Interpretation Comments Hct (test code = Hct) 32.3 36.0-48.0 [place] 222913-02-21 12:50:00 Test Item Value Reference Range Interpretation Comments MCV (test code = MCV) 90.8 80.0-98.0 [place] [address]-02-21 12:50:00 Test Item Value Reference Range Interpretation Comments MCH (test code = MCH) 29.3 pg 27.0-31.0 [place] [address]-02-21 12:50:00 Test Item Value Reference Range Interpretation Comments MCHC (test code = MCHC) 32.2 32.0-36.0 [place] 222913-02-21 12:50:00 Test Item Value Reference Range Interpretation Comments RDW (test code = RDW) 13.7 11.5-14.5 [place] [address]-02-21 12:50:00 Test Item Value Reference Range Interpretation Comments Platelet (test code = Platelet) 137 133-450 [place] 222913-02-21 12:50:00 Test Item Value Reference Range Interpretation Comments MPV (test code = MPV) 7.9 7.4-10.4 [place] [address]-02-21 12:50:00 Test Item Value Reference Range Interpretation Comments ACT (TEG) Rapid (test code = ACT (TEG) 113 s 86-118 Rapid) [place] 222913-02-21 12:50:00 Test Item Value Reference Range Interpretation Comments Split Point Rapid (test code = Split 0.6 min Point Rapid) [place] [address]-02-21 12:50:00 Test Item Value Reference Range Interpretation Comments R-time Rapid (test code = R-time 0.7 min 0.4-0.7 Rapid) [place] [address]-02-21 12:50:00 Test Item Value Reference Range Interpretation Comments K-time Rapid (test code = K-time 1.1 min 0.6-2.3 Rapid) [place] [address]-02-21 12:50:00 Test Item Value Reference Range Interpretation Comments Angle Rapid (test code = Angle 78 degrees 64-80 Rapid) [place] [address]-02-21 12:50:00 Test Item Value Reference Range Interpretation Comments Max Amplitude Rapid (test code = Max 65 mm 52-71 Amplitude Rapid) [place] [address]-02-21 12:50:00 Test Item Value Reference Range Interpretation Comments G-value Rapid (test code = G-value 9.2 5.0-11.6 Rapid) [place] [address]-02-21 12:50:00 Test Item Value Reference Range Interpretation Comments Estimated % Lysis Rapid 0.0 See_Comment [Au tomated message] The (test code = Estimated syste m which generated % Lysis Rapid) this result t ransmitted reference range : <=7.5. The reference r christiano was not used to int erpret this result as normal/abnormal . [place] [address]-02-21 12:50:00 Test Item Value Reference Range Interpretation Comments Plt Morph (test code = See Note 1(11/21/22 Plt Morph) 6:50 AM) [place] [address]-02-21 12:50:00 Test Item Value Reference Range Interpretation Comments Segs (test code = Segs) 64.1 45.0-75.0 [place] [address]-02-21 12:50:00 Test Item Value Reference Range Interpretation Comments Lymphocytes (test code = Lymphocytes) 22.0 20.0-40.0 [place] [address]-02-21 12:50:00 Test Item Value Reference Range Interpretation Comments Monocytes (test code = Monocytes) 8.3 2.0-12.0 [place] [address]-02-21 12:50:00 Test Item Value Reference Range Interpretation Comments Eosinophils (test code = 4.7 See_Comment [A utomated message] The Eosinophils) system which ge nerated this result tra nsmitted reference range : <=4.0. The reference r christiano was not used to int erpret this result as normal/abnormal . [place] [address]-02-21 12:50:00 Test Item Value Reference Range Interpretation Comments Basophils (test code = 0.9 See_Comment [Aut omated message] The Basophils) system which ge nerated this result tra nsmitted reference range : <=1.0. The reference r christiano was not used to int erpret this result as normal/abnormal . [facility] CenterAkwdenjDIZXEVTFEM4202-63-62 12:50:00 Test Item Value Reference Range Interpretation Comments Neutrophils # (test code = Neutrophils 5.6 1.5-8.1 #) [facility] CenterQxxwsxuRTVDITQSIW4117-07-90 12:50:00 Test Item Value Reference Range Interpretation Comments Lymphocytes # (test code = Lymphocytes 1.9 1.0-5.5 #) [facility] CenterJpystdyZPPOHEFGKX6490-62-19 12:50:00 Test Item Value Reference Range Interpretation Comments Monocytes # (test code 0.7 See_Comment [Aut omated message] The = Monocytes #) system which generated this result tra nsmitted reference range : <=0.8. The reference r christiano was not used to int erpret this result as normal/abnormal . [facility] CenterJcjoqnxHNMFVYFHHO2754-25-64 12:50:00 Test Item Value Reference Range Interpretation Comments Eosinophils # (test code 0.4 See_Comment [A utomated message] The = Eosinophils #) system whic h generated this result tra nsmitted reference range : <=0.5. The reference r christiano was not used to int erpret this result as normal/abnormal . [facility] CenterZazgwafGLFLPZCSZP3836-97-59 12:50:00 Test Item Value Reference Range Interpretation Comments Basophils # (test code 0.1 See_Comment [Aut omated message] The = Basophils #) system which generated this result tra nsmitted reference range : <=0.2. The reference r christiano was not used to int erpret this result as normal/abnormal . [facility] CenterTbcwixaBYHJEVSNVR2291-31-42 12:50:00 Test Item Value Reference Range Interpretation Comments Stomatocyte (test code = Stomatocyte) slight [facility]CxgjytbQCBIXRVXDW7434-81-55 12:50:00 Test Item Value Reference Range Interpretation Comments Ethanol Lvl (test code = Ethanol Lvl) no gt [facility] FallsVhqxngpIFHHYTHSQV9814-20-40 12:50:00 Test Item Value Reference Range Interpretation Comments Etoh (%) (test code = Etoh (%)) [facility]t [facility] [id number] 12:50:00 Test Item Value Reference Range Interpretation Comments ABO/Rh (test code = ABO/Rh) O POS [facility] BANK [id number] 12:50:00 Test Item Value Reference Range Interpretation Comments Antibody Scrn (test Negative (11/21/22 6:50 code = Antibody Scrn) AM) [facility] 1 [id number] 12:50:00 Test Item Value Reference Range Interpretation Comments ABO/Rh (test code = ABO/Rh) O POS [facility] 1 [id number] 12:50:00 Test Item Value Reference Range Interpretation Comments Antibody Scrn (test Negative (11/21/22 6:50 code = Antibody Scrn) AM) [facility] [employer]ardsCARDIAC AIRDTNO0574-73-25 12:50:00 Test Item Value Reference Range Interpretation Comments HS Troponin I (test code = HS Troponin 15 I) [facility] [id number] 12:50:00 Test Item Value Reference Range Interpretation Comments Glucose Lvl (test code = Glucose Lvl) 99 70-99 [facility] [id number] 12:50:00 Test Item Value Reference Range Interpretation Comments BUN (test code = BUN) 38 7-22 [facility] [id number] 12:50:00 Test Item Value Reference Range Interpretation Comments Creatinine Lvl (test code = Creatinine 2.38 0.50-1.40 Lvl) [facility] [id number] 12:50:00 Test Item Value Reference Range Interpretation Comments Sodium Lvl (test code = Sodium Lvl) 140 135-145 [facility] [id number] 12:50:00 Test Item Value Reference Range Interpretation Comments Potassium Lvl (test code = Potassium 3.9 3.5-5.1 Lvl) [facility] groSolar2023-02-21 12:50:00 Test Item Value Reference Range Interpretation Comments Chloride Lvl (test code = Chloride Lvl) 107 95-109 [facility] [id number] 12:50:00 Test Item Value Reference Range Interpretation Comments CO2 (test code = CO2) 27 24-32 [facility] [id number] 12:50:00 Test Item Value Reference Range Interpretation Comments Calcium Lvl (test code = Calcium Lvl) 8.1 8.5-10.5 [facility] [id number] 12:50:00 Test Item Value Reference Range Interpretation Comments AGAP (test code = AGAP) 9.9 10.0-20.0 [place] 678383-02-21 12:50:00 Test Item Value Reference Range Interpretation Comments eGFR (test code = eGFR) 20 [place] 678383-02-21 12:50:00 Test Item Value Reference Range Interpretation Comments Lactic Acid Lvl (test code = Lactic 0.7 0.5-2.2 Acid Lvl) [place] [address]-02-21 12:50:00 Test Item Value Reference Range Interpretation Comments Total Protein (test code = Total 6.1 6.4-8.4 Protein) [place] [address]-02-21 12:50:00 Test Item Value Reference Range Interpretation Comments Albumin Lvl (test code = Albumin Lvl) 2.9 3.5-5.0 [place] [address]-02-21 12:50:00 Test Item Value Reference Range Interpretation Comments Globulin (test code = Globulin) 3.2 2.7-4.2 [place] [address]-02-21 12:50:00 Test Item Value Reference Range Interpretation Comments A/G Ratio (test code = A/G Ratio) 0.9 1 0.7-1.6 [place] [address]-02-21 12:50:00 Test Item Value Reference Range Interpretation Comments ALT (test code = ALT) 16 See_Comment [Auto mated message] The system which ge nerated this result transmit sheba reference range : <=65. The reference range was not used to interpr et this result as edy l/abnormal. [place] 678383-02-21 12:50:00 Test Item Value Reference Range Interpretation Comments AST (test code = AST) 15 See_Comment [Auto mated message] The system which ge nerated this result transmit sheba reference range : <=37. The reference range was not used to interpr et this result as edy l/abnormal. [place] 678383-02-21 12:50:00 Test Item Value Reference Range Interpretation Comments Alk Phos (test code = Alk Phos) 96 39-136 [place] 678383-02-21 12:50:00 Test Item Value Reference Range Interpretation Comments Bili Total (test code = Bili Total) 0.2 0.2-1.3 [facility] [id number] 12:50:00 Test Item Value Reference Range Interpretation Comments Bili Direct (test code no gt See_Comment [Aut omated message] The = Bili Direct) system which generated this result tra nsmitted reference range : <=0.3. The reference r christiano was not used to int erpret this result as edy l/abnormal. [facility] Center[facility] [id number] 12:50:00 Test Item Value Reference Range Interpretation Comments Bili Indirect Unable to See_Comment [Automated (test code = Bili Calculate message] T he system Indirect) which generated this result transmitted reference range : <=1.0. The reference range was not used to interpret this result as normal/abnormal . [facility]anoIrnhkevJOMXXCOTO4608-84-74 12:50:00 Test Item Value Reference Range Interpretation Comments Ethanol Lvl (test code = Ethanol Lvl) no gt [facility] PlanoYdjwfctNIQPFDYMI3787-29-80 12:50:00 Test Item Value Reference Range Interpretation Comments Etoh (%) (test code = Etoh (%)) no gt [place] 087233-02-21 12:50:00 Test Item Value Reference Range Interpretation Comments Lactic Acid Lvl (test code = Lactic 0.7 0.5-2.2 Acid Lvl) [facility]anoVhvgwzkMTWDSPXOH0474-45-91 12:50:00 Test Item Value Reference Range Interpretation Comments Total Protein (test code = Total 6.1 6.4-8.4 Protein) [place] 087233-02-21 12:50:00 Test Item Value Reference Range Interpretation Comments Albumin Lvl (test code = Albumin Lvl) 2.9 3.5-5.0 [place] [address]-02-21 12:50:00 Test Item Value Reference Range Interpretation Comments Globulin (test code = Globulin) 3.2 2.7-4.2 [place] [address]-02-21 12:50:00 Test Item Value Reference Range Interpretation Comments A/G Ratio (test code = A/G Ratio) 0.9 1 0.7-1.6 [place] 087233-02-21 12:50:00 Test Item Value Reference Range Interpretation Comments ALT (test code = ALT) 16 See_Comment [Auto mated message] The system which ge nerated this result transmit sheba reference range : <=65. The reference range was not used to interpr et this result as edy l/abnormal. [facility] FallsMmzbsolATMXLRCWW7648-07-29 12:50:00 Test Item Value Reference Range Interpretation Comments AST (test code = AST) 15 See_Comment [Auto mated message] The system which ge nerated this result transmit sheba reference range : <=37. The reference range was not used to interpr et this result as edy l/abnormal. [facility] FallsLsmiysnMZCISJAYC6350-14-00 12:50:00 Test Item Value Reference Range Interpretation Comments Alk Phos (test code = Alk Phos) 96 39-136 [facility] FallsKjrzjraTTGSRXSUA3019-39-95 12:50:00 Test Item Value Reference Range Interpretation Comments Bili Total (test code = Bili Total) 0.2 0.2-1.3 [facility] FallsIwscayvCRKQYWPWO2614-52-90 12:50:00 Test Item Value Reference Range Interpretation Comments Bili Direct (test code no gt See_Comment [Aut omated message] The = Bili Direct) system which generated this result tra nsmitted reference range : <=0.3. The reference r christiano was not used to int erpret this result as edy l/abnormal. [facility] FallsLmnluxtKRUSZWKJP0149-60-25 12:50:00 Test Item Value Reference Range Interpretation Comments Bili Indirect Unable to See_Comment [Automated (test code = Bili Calculate message] T he system Indirect) which generated this result transmitted reference range : <=1.0. The reference range was not used to interpret this result as normal/abnormal . [facility] FallsMmxpyvyFVNNAEPHS2418-90-19 12:50:00 Test Item Value Reference Range Interpretation Comments HS Troponin I (test code = HS Troponin 15 I) [facility] CenterBqgikfqUSJXVUTMM3437-54-23 12:50:00 Test Item Value Reference Range Interpretation Comments pH Justin (test code = pH Justin) 7.35 1 7.28-7.42 [facility] CenterKhspraxBRGXBQFQJ4949-39-52 12:50:00 Test Item Value Reference Range Interpretation Comments pCO2 Justin (test code = pCO2 Justin) 55 38-52 [place] 087233-02-21 12:50:00 Test Item Value Reference Range Interpretation Comments pO2 Justin (test code = pO2 Justin) 43 20-49 [place] 087233-02-21 12:50:00 Test Item Value Reference Range Interpretation Comments HCO3 Justin (test code = HCO3 Justin) 30 22- [place] 087233-02-21 12:50:00 Test Item Value Reference Range Interpretation Comments BE Justin (test code = BE Justin) 3 -2-2 [place] 087233-02-21 12:50:00 Test Item Value Reference Range Interpretation Comments O2 Sat Justin (calc) (test code = O2 Sat 75.9 40.0-70.0 Justin (calc)) [facility] PlanoJkskmveHUNXJODYQ0785-99-12 12:50:00 Test Item Value Reference Range Interpretation Comments Temp Justin (test code = Temp Justin) 37.0 [place] 222913-02-21 12:50:00 Test Item Value Reference Range Interpretation Comments ACT (TEG) Rapid (test code = ACT (TEG) 113 s 86-118 Rapid) [place] 222913-02-21 12:50:00 Test Item Value Reference Range Interpretation Comments Split Point Rapid (test code = Split 0.6 min Point Rapid) [place] 222913-02-21 12:50:00 Test Item Value Reference Range Interpretation Comments R-time Rapid (test code = R-time 0.7 min 0.4-0.7 Rapid) [place] 222913-02-21 12:50:00 Test Item Value Reference Range Interpretation Comments K-time Rapid (test code = K-time 1.1 min 0.6-2.3 Rapid) [place] 222913-02-21 12:50:00 Test Item Value Reference Range Interpretation Comments Angle Rapid (test code = Angle 78 degrees 64-80 Rapid) [place] 222913-02-21 12:50:00 Test Item Value Reference Range Interpretation Comments Max Amplitude Rapid (test code = Max 65 mm 52-71 Amplitude Rapid) [place] 222913-02-21 12:50:00 Test Item Value Reference Range Interpretation Comments G-value Rapid (test code = G-value 9.2 5.0-11.6 Rapid) [place] 222913-02-21 12:50:00 Test Item Value Reference Range Interpretation Comments Estimated % Lysis Rapid 0.0 See_Comment [Au tomated message] The (test code = Estimated syste m which generated % Lysis Rapid) this result t ransmitted reference range : <=7.5. The reference r christiano was not used to int erpret this result as normal/abnormal . [facility] CenterJojrvlgMRRTCHEOKZ9249-05-05 12:50:00 Test Item Value Reference Range Interpretation Comments Plt Morph (test code = See Note 1(11/21/22 Plt Morph) 6:50 AM) [place] 222913-02-21 12:50:00 Test Item Value Reference Range Interpretation Comments Stomatocyte (test code = Stomatocyte) slight [place] 222913-02-21 12:50:00 Test Item Value Reference Range Interpretation Comments WBC X 10x3 (test code = WBC X 10x3) 8.7 3.7-10.4 [place] 222913-02-21 12:50:00 Test Item Value Reference Range Interpretation Comments RBC X 10x6 (test code = RBC X 10x6) 3.56 4.20-5.40 [place] 222913-02-21 12:50:00 Test Item Value Reference Range Interpretation Comments Hgb (test code = Hgb) 10.4 12.0-16.0 [place] [address]-02-21 12:50:00 Test Item Value Reference Range Interpretation Comments Hct (test code = Hct) 32.3 36.0-48.0 [place] [address]-02-21 12:50:00 Test Item Value Reference Range Interpretation Comments MCV (test code = MCV) 90.8 80.0-98.0 [place] [address]-02-21 12:50:00 Test Item Value Reference Range Interpretation Comments MCH (test code = MCH) 29.3 pg 27.0-31.0 [place] [address]-02-21 12:50:00 Test Item Value Reference Range Interpretation Comments MCHC (test code = MCHC) 32.2 32.0-36.0 [place] [address]-02-21 12:50:00 Test Item Value Reference Range Interpretation Comments RDW (test code = RDW) 13.7 11.5-14.5 [place] [address]-02-21 12:50:00 Test Item Value Reference Range Interpretation Comments Platelet (test code = Platelet) 137 133-450 [place] 222913-02-21 12:50:00 Test Item Value Reference Range Interpretation Comments MPV (test code = MPV) 7.9 7.4-10.4 [place] [address]-02-21 12:50:00 Test Item Value Reference Range Interpretation Comments ACT (TEG) Rapid (test code = ACT (TEG) 113 s 86-118 Rapid) [place] [address]-02-21 12:50:00 Test Item Value Reference Range Interpretation Comments Split Point Rapid (test code = Split 0.6 min Point Rapid) [place] [address]-02-21 12:50:00 Test Item Value Reference Range Interpretation Comments R-time Rapid (test code = R-time 0.7 min 0.4-0.7 Rapid) [place] [address]-02-21 12:50:00 Test Item Value Reference Range Interpretation Comments K-time Rapid (test code = K-time 1.1 min 0.6-2.3 Rapid) [place] [address]-02-21 12:50:00 Test Item Value Reference Range Interpretation Comments Angle Rapid (test code = Angle 78 degrees 64-80 Rapid) [place] [address]-02-21 12:50:00 Test Item Value Reference Range Interpretation Comments Max Amplitude Rapid (test code = Max 65 mm 52-71 Amplitude Rapid) [place] [address]-02-21 12:50:00 Test Item Value Reference Range Interpretation Comments G-value Rapid (test code = G-value 9.2 5.0-11.6 Rapid) [place] [address]-02-21 12:50:00 Test Item Value Reference Range Interpretation Comments Estimated % Lysis Rapid 0.0 See_Comment [Au tomated message] The (test code = Estimated syste m which generated % Lysis Rapid) this result t ransmitted reference range : <=7.5. The reference r christiano was not used to int erpret this result as normal/abnormal . [facility] CenterNnttjxeDXBTRIWOBY5154-98-91 12:50:00 Test Item Value Reference Range Interpretation Comments Plt Morph (test code = See Note 1(11/21/22 Plt Morph) 6:50 AM) [place] 222913-02-21 12:50:00 Test Item Value Reference Range Interpretation Comments Segs (test code = Segs) 64.1 45.0-75.0 [place] [address]-02-21 12:50:00 Test Item Value Reference Range Interpretation Comments Lymphocytes (test code = Lymphocytes) 22.0 20.0-40.0 [place] [address]-02-21 12:50:00 Test Item Value Reference Range Interpretation Comments Monocytes (test code = Monocytes) 8.3 2.0-12.0 [place] [address]-02-21 12:50:00 Test Item Value Reference Range Interpretation Comments Eosinophils (test code = 4.7 See_Comment [A utomated message] The Eosinophils) system which ge nerated this result tra nsmitted reference range : <=4.0. The reference r christiano was not used to int erpret this result as normal/abnormal . [place] [address]-02-21 12:50:00 Test Item Value Reference Range Interpretation Comments Basophils (test code = 0.9 See_Comment [Aut omated message] The Basophils) system which ge nerated this result tra nsmitted reference range : <=1.0. The reference r christiano was not used to int erpret this result as normal/abnormal . [place] 222913-02-21 12:50:00 Test Item Value Reference Range Interpretation Comments Neutrophils # (test code = Neutrophils 5.6 1.5-8.1 #) [place] [address]-02-21 12:50:00 Test Item Value Reference Range Interpretation Comments Lymphocytes # (test code = Lymphocytes 1.9 1.0-5.5 #) [place] [address]-02-21 12:50:00 Test Item Value Reference Range Interpretation Comments Monocytes # (test code 0.7 See_Comment [Aut omated message] The = Monocytes #) system which generated this result tra nsmitted reference range : <=0.8. The reference r christiano was not used to int erpret this result as normal/abnormal . [place] 222913-02-21 12:50:00 Test Item Value Reference Range Interpretation Comments Eosinophils # (test code 0.4 See_Comment [A utomated message] The = Eosinophils #) system wh h generated this result tra nsmitted reference range : <=0.5. The reference r christiano was not used to int erpret this result as normal/abnormal . [facility] LfupipqXJNAOTZJKT1807-19-18 12:50:00 Test Item Value Reference Range Interpretation Comments Basophils # (test code 0.1 See_Comment [Aut omated message] The = Basophils #) system which generated this result tra nsmitted reference range : <=0.2. The reference r christiano was not used to int erpret this result as normal/abnormal . [facility] VhmvvotCWOFESDTPH5147-21-03 12:50:00 Test Item Value Reference Range Interpretation Comments Stomatocyte (test code = Stomatocyte) slight [facility] SdiephvMYAQOUMTMR1004-89-89 12:50:00 Test Item Value Reference Range Interpretation Comments Ethanol Lvl (test code = Ethanol Lvl) no gt [facility] [id number] 12:50:00 Test Item Value Reference Range Interpretation Comments Etoh (%) (test code = Etoh (%)) no gt [facility] [employer] 1 [id number] 12:50:00 Test Item Value Reference Range Interpretation Comments ABO/Rh (test code = ABO/Rh) O POS [facility] 1 [id number] 12:50:00 Test Item Value Reference Range Interpretation Comments Antibody Scrn (test Negative (11/21/22 6:50 code = Antibody Scrn) AM) [facility] 1 [id number] 12:50:00 Test Item Value Reference Range Interpretation Comments ABO/Rh (test code = ABO/Rh) O POS [employer] [id number] 12:50:00 Test Item Value Reference Range Interpretation Comments Antibody Scrn (test Negative (11/21/22 6:50 code = Antibody Scrn) AM) [facility] [employer] [id number] 12:50:00 Test Item Value Reference Range Interpretation Comments HS Troponin I (test code = HS Troponin 15 I) [facility] [id number] 12:50:00 Test Item Value Reference Range Interpretation Comments Glucose Lvl (test code = Glucose Lvl) 99 70-99 [facility] [id number] 12:50:00 Test Item Value Reference Range Interpretation Comments BUN (test code = BUN) 38 7-22 [facility] [id number] 12:50:00 Test Item Value Reference Range Interpretation Comments Creatinine Lvl (test code = Creatinine 2.38 0.50-1.40 Lvl) [place] 678383-02-21 12:50:00 Test Item Value Reference Range Interpretation Comments Sodium Lvl (test code = Sodium Lvl) 140 135-145 [place] 678383-02-21 12:50:00 Test Item Value Reference Range Interpretation Comments Potassium Lvl (test code = Potassium 3.9 3.5-5.1 Lvl) [facility]2023-02-21 12:50:00 Test Item Value Reference Range Interpretation Comments Chloride Lvl (test code = Chloride Lvl) 107 95-109 [place] 678383-02-21 12:50:00 Test Item Value Reference Range Interpretation Comments CO2 (test code = CO2) 27 24-32 [place] 678383-02-21 12:50:00 Test Item Value Reference Range Interpretation Comments Calcium Lvl (test code = Calcium Lvl) 8.1 8.5-10.5 [place] 678383-02-21 12:50:00 Test Item Value Reference Range Interpretation Comments AGAP (test code = AGAP) 9.9 10.0-20.0 [place] 678383-02-21 12:50:00 Test Item Value Reference Range Interpretation Comments eGFR (test code = eGFR) 20 [place] 678383-02-21 12:50:00 Test Item Value Reference Range Interpretation Comments Lactic Acid Lvl (test code = Lactic 0.7 0.5-2.2 Acid Lvl) [place] 678383-02-21 12:50:00 Test Item Value Reference Range Interpretation Comments Total Protein (test code = Total 6.1 6.4-8.4 Protein) [place] 678383-02-21 12:50:00 Test Item Value Reference Range Interpretation Comments Albumin Lvl (test code = Albumin Lvl) 2.9 3.5-5.0 [place] 678383-02-21 12:50:00 Test Item Value Reference Range Interpretation Comments Globulin (test code = Globulin) 3.2 2.7-4.2 [place] 678383-02-21 12:50:00 Test Item Value Reference Range Interpretation Comments A/G Ratio (test code = A/G Ratio) 0.9 1 0.7-1.6 [facility] [id number] 12:50:00 Test Item Value Reference Range Interpretation Comments ALT (test code = ALT) 16 See_Comment [Auto mated message] The system which ge nerated this result transmit sheba reference range : <=65. The reference range was not used to interpr et this result as edy l/abnormal. [facility] [id number] 12:50:00 Test Item Value Reference Range Interpretation Comments AST (test code = AST) 15 See_Comment [Auto mated message] The system which ge nerated this result transmit sheba reference range : <=37. The reference range was not used to interpr et this result as edy l/abnormal. [facility] [id number] 12:50:00 Test Item Value Reference Range Interpretation Comments Alk Phos (test code = Alk Phos) 96 39-136 [facility] [id number] 12:50:00 Test Item Value Reference Range Interpretation Comments Bili Total (test code = Bili Total) 0.2 0.2-1.3 [facility] Falls[facility] [id number] 12:50:00 Test Item Value Reference Range Interpretation Comments Bili Direct (test code no gt See_Comment [Aut omated message] The = Bili Direct) system which generated this result tra nsmitted reference range : <=0.3. The reference r christiano was not used to int erpret this result as edy l/abnormal. [facility] [id number] 12:50:00 Test Item Value Reference Range Interpretation Comments Bili Indirect Unable to See_Comment [Automated (test code = Bili Calculate message] T he system Indirect) which generated this result transmitted reference range : <=1.0. The reference range was not used to interpret this result as normal/abnormal . [facility] FallsLbtnfbnUEOCNGDKN3203-24-02 12:50:00 Test Item Value Reference Range Interpretation Comments Ethanol Lvl (test code = Ethanol Lvl) [facility] gt [facility]ZvoxayxREHJSHATD6739-17-59 12:50:00 Test Item Value Reference Range Interpretation Comments Etoh (%) (test code = Etoh (%)) no gt [facility] CenterRhmxmbyRZWKBWTYY8179-89-76 12:50:00 Test Item Value Reference Range Interpretation Comments Lactic Acid Lvl (test code = Lactic 0.7 0.5-2.2 Acid Lvl) [facility]anoFvulacbTUWZHQPWU8702-11-02 12:50:00 Test Item Value Reference Range Interpretation Comments Total Protein (test code = Total 6.1 6.4-8.4 Protein) [facility]anoNncqnudAWQDZUMQL5811-58-97 12:50:00 Test Item Value Reference Range Interpretation Comments Albumin Lvl (test code = Albumin Lvl) 2.9 3.5-5.0 [place] 087233-02-21 12:50:00 Test Item Value Reference Range Interpretation Comments Globulin (test code = Globulin) 3.2 2.7-4.2 [place] 087233-02-21 12:50:00 Test Item Value Reference Range Interpretation Comments A/G Ratio (test code = A/G Ratio) 0.9 1 0.7-1.6 [place] [address]-02-21 12:50:00 Test Item Value Reference Range Interpretation Comments ALT (test code = ALT) 16 See_Comment [Auto mated message] The system which ge nerated this result transmit sheba reference range : <=65. The reference range was not used to interpr et this result as edy l/abnormal. [facility] PlanoIsnaoflPLFEYYPGX7506-59-24 12:50:00 Test Item Value Reference Range Interpretation Comments AST (test code = AST) 15 See_Comment [Auto mated message] The system which ge nerated this result transmit sheba reference range : <=37. The reference range was not used to interpr et this result as edy l/abnormal. [facility]anoGafjsgsIDYNAZKDA9761-01-73 12:50:00 Test Item Value Reference Range Interpretation Comments Alk Phos (test code = Alk Phos) 96 39-136 [facility]anoQfeyezmXZQKJLUHC6515-62-26 12:50:00 Test Item Value Reference Range Interpretation Comments Bili Total (test code = Bili Total) 0.2 0.2-1.3 [place] 087233-02-21 12:50:00 Test Item Value Reference Range Interpretation Comments Bili Direct (test code no gt See_Comment [Aut omated message] The = Bili Direct) system which generated this result tra nsmitted reference range : <=0.3. The reference r christiano was not used to int erpret this result as edy l/abnormal. [facility] PlanoFoqrjfyCJFWSDRWY5039-29-82 12:50:00 Test Item Value Reference Range Interpretation Comments Bili Indirect Unable to See_Comment [Automated (test code = Bili Calculate message] T he system Indirect) which generated this result transmitted reference range : <=1.0. The reference range was not used to interpret this result as normal/abnormal . [facility] PlanoZsoanykFZITWSROF6644-29-00 12:50:00 Test Item Value Reference Range Interpretation Comments HS Troponin I (test code = HS Troponin 15 I) [facility]anoPlbkvzoYDXLVXPEZ8313-53-91 12:50:00 Test Item Value Reference Range Interpretation Comments pH Justin (test code = pH Justin) 7.35 1 7.28-7.42 [place] 087233-02-21 12:50:00 Test Item Value Reference Range Interpretation Comments pCO2 Justin (test code = pCO2 Justin) 55 38-52 [place] 087233-02-21 12:50:00 Test Item Value Reference Range Interpretation Comments pO2 Justin (test code = pO2 Justin) 43 20-49 [place] [address]-02-21 12:50:00 Test Item Value Reference Range Interpretation Comments HCO3 Justin (test code = HCO3 Justin) 30 22-26 [place] 087233-02-21 12:50:00 Test Item Value Reference Range Interpretation Comments BE Justin (test code = BE Justin) 3 -2-2 [facility] PlanoPheelvsNAFQNGCPX9034-26-54 12:50:00 Test Item Value Reference Range Interpretation Comments O2 Sat Justin (calc) (test code = O2 Sat 75.9 40.0-70.0 Justin (calc)) [place] 087233-02-21 12:50:00 Test Item Value Reference Range Interpretation Comments Temp Justin (test code = Temp Justin) 37.0 [place] 222913-02-21 12:50:00 Test Item Value Reference Range Interpretation Comments ACT (TEG) Rapid (test code = ACT (TEG) 113 s 86-118 Rapid) [facility]arvhzKTRTZJIWZJ1192-50-04 12:50:00 Test Item Value Reference Range Interpretation Comments Split Point Rapid (test code = Split 0.6 min Point Rapid) [place] 222913-02-21 12:50:00 Test Item Value Reference Range Interpretation Comments R-time Rapid (test code = R-time 0.7 min 0.4-0.7 Rapid) [place] [address]-02-21 12:50:00 Test Item Value Reference Range Interpretation Comments K-time Rapid (test code = K-time 1.1 min 0.6-2.3 Rapid) [place] [address]-02-21 12:50:00 Test Item Value Reference Range Interpretation Comments Angle Rapid (test code = Angle 78 degrees 64-80 Rapid) [place] [address]-02-21 12:50:00 Test Item Value Reference Range Interpretation Comments Max Amplitude Rapid (test code = Max 65 mm 52-71 Amplitude Rapid) [place] [address]-02-21 12:50:00 Test Item Value Reference Range Interpretation Comments G-value Rapid (test code = G-value 9.2 5.0-11.6 Rapid) [place] [address]-02-21 12:50:00 Test Item Value Reference Range Interpretation Comments Estimated % Lysis Rapid 0.0 See_Comment [Au tomated message] The (test code = Estimated syste m which generated % Lysis Rapid) this result t ransmitted reference range : <=7.5. The reference r christiano was not used to int erpret this result as normal/abnormal . [facility] CenterHzgssabFPCQAHPDSB1676-92-33 12:50:00 Test Item Value Reference Range Interpretation Comments Plt Morph (test code = See Note 1(11/21/22 Plt Morph) 6:50 AM) [place] 222913-02-21 12:50:00 Test Item Value Reference Range Interpretation Comments Stomatocyte (test code = Stomatocyte) slight [place] [address]-02-21 12:50:00 Test Item Value Reference Range Interpretation Comments WBC X 10x3 (test code = WBC X 10x3) 8.7 3.7-10.4 [place] [address]-02-21 12:50:00 Test Item Value Reference Range Interpretation Comments RBC X 10x6 (test code = RBC X 10x6) 3.56 4.20-5.40 [place] [address]-02-21 12:50:00 Test Item Value Reference Range Interpretation Comments Hgb (test code = Hgb) 10.4 12.0-16.0 [place] 222913-02-21 12:50:00 Test Item Value Reference Range Interpretation Comments Hct (test code = Hct) 32.3 36.0-48.0 [place] 222913-02-21 12:50:00 Test Item Value Reference Range Interpretation Comments MCV (test code = MCV) 90.8 80.0-98.0 [place] 222913-02-21 12:50:00 Test Item Value Reference Range Interpretation Comments MCH (test code = MCH) 29.3 pg 27.0-31.0 [place] [address]-02-21 12:50:00 Test Item Value Reference Range Interpretation Comments MCHC (test code = MCHC) 32.2 32.0-36.0 [place] [address]-02-21 12:50:00 Test Item Value Reference Range Interpretation Comments RDW (test code = RDW) 13.7 11.5-14.5 [place] [address]-02-21 12:50:00 Test Item Value Reference Range Interpretation Comments Platelet (test code = Platelet) 137 133-450 [place] [address]-02-21 12:50:00 Test Item Value Reference Range Interpretation Comments MPV (test code = MPV) 7.9 7.4-10.4 [place] [address]-02-21 12:50:00 Test Item Value Reference Range Interpretation Comments ACT (TEG) Rapid (test code = ACT (TEG) 113 s 86-118 Rapid) [place] 222913-02-21 12:50:00 Test Item Value Reference Range Interpretation Comments Split Point Rapid (test code = Split 0.6 min Point Rapid) [place] [address]-02-21 12:50:00 Test Item Value Reference Range Interpretation Comments R-time Rapid (test code = R-time 0.7 min 0.4-0.7 Rapid) [place] [address]-02-21 12:50:00 Test Item Value Reference Range Interpretation Comments K-time Rapid (test code = K-time 1.1 min 0.6-2.3 Rapid) [place] [address]-02-21 12:50:00 Test Item Value Reference Range Interpretation Comments Angle Rapid (test code = Angle 78 degrees 64-80 Rapid) [place] 222913-02-21 12:50:00 Test Item Value Reference Range Interpretation Comments Max Amplitude Rapid (test code = Max 65 mm 52-71 Amplitude Rapid) [place] 222913-02-21 12:50:00 Test Item Value Reference Range Interpretation Comments G-value Rapid (test code = G-value 9.2 5.0-11.6 Rapid) [place] [address]-02-21 12:50:00 Test Item Value Reference Range Interpretation Comments Estimated % Lysis Rapid 0.0 See_Comment [Au tomated message] The (test code = Estimated syste m which generated % Lysis Rapid) this result t ransmitted reference range : <=7.5. The reference r christiano was not used to int erpret this result as normal/abnormal . [place] 222913-02-21 12:50:00 Test Item Value Reference Range Interpretation Comments Plt Morph (test code = See Note 1(11/21/22 Plt Morph) 6:50 AM) [place] 222913-02-21 12:50:00 Test Item Value Reference Range Interpretation Comments Segs (test code = Segs) 64.1 45.0-75.0 [place] 222913-02-21 12:50:00 Test Item Value Reference Range Interpretation Comments Lymphocytes (test code = Lymphocytes) 22.0 20.0-40.0 [place] [address]-02-21 12:50:00 Test Item Value Reference Range Interpretation Comments Monocytes (test code = Monocytes) 8.3 2.0-12.0 [place] [address]-02-21 12:50:00 Test Item Value Reference Range Interpretation Comments Eosinophils (test code = 4.7 See_Comment [A utomated message] The Eosinophils) system which ge nerated this result tra nsmitted reference range : <=4.0. The reference r christiano was not used to int erpret this result as normal/abnormal . [place] 222913-02-21 12:50:00 Test Item Value Reference Range Interpretation Comments Basophils (test code = 0.9 See_Comment [Aut omated message] The Basophils) system which ge nerated this result tra nsmitted reference range : <=1.0. The reference r christiano was not used to int erpret this result as normal/abnormal . [facility] CenterGhpfzkrRCHJIRYUET6550-43-43 12:50:00 Test Item Value Reference Range Interpretation Comments Neutrophils # (test code = Neutrophils 5.6 1.5-8.1 #) [facility] CenterHkrorekJKYAKRNVRJ6424-24-32 12:50:00 Test Item Value Reference Range Interpretation Comments Lymphocytes # (test code = Lymphocytes 1.9 1.0-5.5 #) [facility] CenterKsdwzriNKRGXARNGP4789-43-23 12:50:00 Test Item Value Reference Range Interpretation Comments Monocytes # (test code 0.7 See_Comment [Aut omated message] The = Monocytes #) system which generated this result tra nsmitted reference range : <=0.8. The reference r christiano was not used to int erpret this result as normal/abnormal . [facility] CenterKttdwigPOQFZMGOYN7550-23-63 12:50:00 Test Item Value Reference Range Interpretation Comments Eosinophils # (test code 0.4 See_Comment [A utomated message] The = Eosinophils #) system whic h generated this result tra nsmitted reference range : <=0.5. The reference r christiano was not used to int erpret this result as normal/abnormal . [facility] CenterVwsutemLLHCDCPTFH1973-21-24 12:50:00 Test Item Value Reference Range Interpretation Comments Basophils # (test code 0.1 See_Comment [Aut omated message] The = Basophils #) system which generated this result tra nsmitted reference range : <=0.2. The reference r christiano was not used to int erpret this result as normal/abnormal . [facility] CenterTujinxeAGTQKFMHLC9543-47-84 12:50:00 Test Item Value Reference Range Interpretation Comments Stomatocyte (test code = Stomatocyte) slight [facility] CenterSxvgldeRXGGCSGHAM3676-01-69 12:50:00 Test Item Value Reference Range Interpretation Comments Ethanol Lvl (test code = Ethanol Lvl) no gt [facility] FallsVslgerjBFDLVHSVBV5647-28-93 12:50:00 Test Item Value Reference Range Interpretation Comments Etoh (%) (test code = Etoh (%)) no gt [facility] 1 [id number] 12:50:00 Test Item Value Reference Range Interpretation Comments ABO/Rh (test code = ABO/Rh) O POS [facility] [id number] 12:50:00 Test Item Value Reference Range Interpretation Comments Antibody Scrn (test Negative (11/21/22 6:50 code = Antibody Scrn) AM) [facility] [id number] 12:50:00 Test Item Value Reference Range Interpretation Comments ABO/Rh (test code = ABO/Rh) O POS [facility] [id number] 12:50:00 Test Item Value Reference Range Interpretation Comments Antibody Scrn (test Negative (11/21/22 6:50 code = Antibody Scrn) AM) [facility] FallsBrightArchCARDIAC [id number] 12:50:00 Test Item Value Reference Range Interpretation Comments HS Troponin I (test code = HS Troponin 15 I) [facility] [id number] 12:50:00 Test Item Value Reference Range Interpretation Comments Glucose Lvl (test code = Glucose Lvl) 99 70-99 [facility] [id number] 12:50:00 Test Item Value Reference Range Interpretation Comments BUN (test code = BUN) 38 7-22 [facility] groSolar2023-02-21 12:50:00 Test Item Value Reference Range Interpretation Comments Creatinine Lvl (test code = Creatinine 2.38 0.50-1.40 Lvl) [facility] [employer]Solar2023-02-21 12:50:00 Test Item Value Reference Range Interpretation Comments Sodium Lvl (test code = Sodium Lvl) 140 135-145 [facility] [id number] 12:50:00 Test Item Value Reference Range Interpretation Comments Potassium Lvl (test code = Potassium 3.9 3.5-5.1 Lvl) [facility] [employer]2023-02-21 12:50:00 Test Item Value Reference Range Interpretation Comments Chloride Lvl (test code = Chloride Lvl) 107 95-109 [facility] [employer]Solar2023-02-21 12:50:00 Test Item Value Reference Range Interpretation Comments CO2 (test code = CO2) 27 24-32 [facility] [id number] 12:50:00 Test Item Value Reference Range Interpretation Comments Calcium Lvl (test code = Calcium Lvl) 8.1 8.5-10.5 [facility] [id number] 12:50:00 Test Item Value Reference Range Interpretation Comments AGAP (test code = AGAP) 9.9 10.0-20.0 [place] 678383-02-21 12:50:00 Test Item Value Reference Range Interpretation Comments eGFR (test code = eGFR) 20 [place] 678383-02-21 12:50:00 Test Item Value Reference Range Interpretation Comments Lactic Acid Lvl (test code = Lactic 0.7 0.5-2.2 Acid Lvl) [place] 678383-02-21 12:50:00 Test Item Value Reference Range Interpretation Comments Total Protein (test code = Total 6.1 6.4-8.4 Protein) [place] 678383-02-21 12:50:00 Test Item Value Reference Range Interpretation Comments Albumin Lvl (test code = Albumin Lvl) 2.9 3.5-5.0 [place] 678383-02-21 12:50:00 Test Item Value Reference Range Interpretation Comments Globulin (test code = Globulin) 3.2 2.7-4.2 [place] 678383-02-21 12:50:00 Test Item Value Reference Range Interpretation Comments A/G Ratio (test code = A/G Ratio) 0.9 1 0.7-1.6 [place] [address]-02-21 12:50:00 Test Item Value Reference Range Interpretation Comments ALT (test code = ALT) 16 See_Comment [Auto mated message] The system which ge nerated this result transmit sheba reference range : <=65. The reference range was not used to interpr et this result as edy l/abnormal. [place] 678383-02-21 12:50:00 Test Item Value Reference Range Interpretation Comments AST (test code = AST) 15 See_Comment [Auto mated message] The system which ge nerated this result transmit sheba reference range : <=37. The reference range was not used to interpr et this result as edy l/abnormal. [place] 678383-02-21 12:50:00 Test Item Value Reference Range Interpretation Comments Alk Phos (test code = Alk Phos) 96 39-136 [place] 678383-02-21 12:50:00 Test Item Value Reference Range Interpretation Comments Bili Total (test code = Bili Total) 0.2 0.2-1.3 [place] 678383-02-21 12:50:00 Test Item Value Reference Range Interpretation Comments Bili Direct (test code no gt See_Comment [Aut omated message] The = Bili Direct) system which generated this result tra nsmitted reference range : <=0.3. The reference r christiano was not used to int erpret this result as edy l/abnormal. [facility] [id number] 12:50:00 Test Item Value Reference Range Interpretation Comments Bili Indirect Unable to See_Comment [Automated (test code = Bili Calculate message] T he system Indirect) which generated this result transmitted reference range : <=1.0. The reference range was not used to interpret this result as normal/abnormal . [place] 087233-02-21 12:50:00 Test Item Value Reference Range Interpretation Comments Ethanol Lvl (test code = Ethanol Lvl) no gt [place] 087233-02-21 12:50:00 Test Item Value Reference Range Interpretation Comments Etoh (%) (test code = Etoh (%)) no gt [place] [address]-02-21 12:50:00 Test Item Value Reference Range Interpretation Comments Lactic Acid Lvl (test code = Lactic 0.7 0.5-2.2 Acid Lvl) [place] [address]-02-21 12:50:00 Test Item Value Reference Range Interpretation Comments Total Protein (test code = Total 6.1 6.4-8.4 Protein) [place] [address]-02-21 12:50:00 Test Item Value Reference Range Interpretation Comments Albumin Lvl (test code = Albumin Lvl) 2.9 3.5-5.0 [place] [address]-02-21 12:50:00 Test Item Value Reference Range Interpretation Comments Globulin (test code = Globulin) 3.2 2.7-4.2 [place] [address]-02-21 12:50:00 Test Item Value Reference Range Interpretation Comments A/G Ratio (test code = A/G Ratio) 0.9 1 0.7-1.6 [place] [address]-02-21 12:50:00 Test Item Value Reference Range Interpretation Comments ALT (test code = ALT) 16 See_Comment [Auto mated message] The system which ge nerated this result transmit sheba reference range : <=65. The reference range was not used to interpr et this result as edy l/abnormal. [facility] YxgcsmxWEZRWKUKP4889-67-63 12:50:00 Test Item Value Reference Range Interpretation Comments AST (test code = AST) 15 See_Comment [Auto mated message] The system which ge nerated this result transmit sheba reference range : <=37. The reference range was not used to interpr et this result as edy l/abnormal. [facility] NxoghvgPRJCRWGUX6106-02-11 12:50:00 Test Item Value Reference Range Interpretation Comments Alk Phos (test code = Alk Phos) 96 39-136 [facility] FallsSrflnotGEHSLISGK9333-06-50 12:50:00 Test Item Value Reference Range Interpretation Comments Bili Total (test code = Bili Total) 0.2 0.2-1.3 [facility] HxhgyreATUTWTVBD0035-03-16 12:50:00 Test Item Value Reference Range Interpretation Comments Bili Direct (test code no gt See_Comment [Aut omated message] The = Bili Direct) system which generated this result tra nsmitted reference range : <=0.3. The reference r christiano was not used to int erpret this result as edy l/abnormal. [facility] TgbqhsdSFTMDYWHB8092-03-22 12:50:00 Test Item Value Reference Range Interpretation Comments Bili Indirect Unable to See_Comment [Automated (test code = Bili Calculate message] T he system Indirect) which generated this result transmitted reference range : <=1.0. The reference range was not used to interpret this result as normal/abnormal . [facility] NzkmpvkULUTSMCZH5475-10-08 12:50:00 Test Item Value Reference Range Interpretation Comments HS Troponin I (test code = HS Troponin 15 I) [facility] FallsJgwjuppVWGTCUFOE9734-19-02 12:50:00 Test Item Value Reference Range Interpretation Comments pH Justin (test code = pH Justin) 7.35 1 7.28-7.42 [facility] FallsOxtoiipMOWCOSFTV2110-61-77 12:50:00 Test Item Value Reference Range Interpretation Comments pCO2 Justin (test code = pCO2 Justin) 55 38-52 [facility] FallsUyjelmaDOAAHQZFG7903-20-64 12:50:00 Test Item Value Reference Range Interpretation Comments pO2 Justin (test code = pO2 Justin) 43 20-49 [place] 087233-02-21 12:50:00 Test Item Value Reference Range Interpretation Comments HCO3 Justin (test code = HCO3 Justin) 30 22- [place] 087233-02-21 12:50:00 Test Item Value Reference Range Interpretation Comments BE Justin (test code = BE Justin) 3 -2-2 [place] 087233-02-21 12:50:00 Test Item Value Reference Range Interpretation Comments O2 Sat Justin (calc) (test code = O2 Sat 75.9 40.0-70.0 Justin (calc)) [place] 087233-02-21 12:50:00 Test Item Value Reference Range Interpretation Comments Temp Justin (test code = Temp Justin) 37.0 [place] 222913-02-21 12:50:00 Test Item Value Reference Range Interpretation Comments ACT (TEG) Rapid (test code = ACT (TEG) 113 s 86-118 Rapid) [place] 222913-02-21 12:50:00 Test Item Value Reference Range Interpretation Comments Split Point Rapid (test code = Split 0.6 min Point Rapid) [place] 222913-02-21 12:50:00 Test Item Value Reference Range Interpretation Comments R-time Rapid (test code = R-time 0.7 min 0.4-0.7 Rapid) [place] 222913-02-21 12:50:00 Test Item Value Reference Range Interpretation Comments K-time Rapid (test code = K-time 1.1 min 0.6-2.3 Rapid) [place] 222913-02-21 12:50:00 Test Item Value Reference Range Interpretation Comments Angle Rapid (test code = Angle 78 degrees 64-80 Rapid) [place] 222913-02-21 12:50:00 Test Item Value Reference Range Interpretation Comments Max Amplitude Rapid (test code = Max 65 mm 52-71 Amplitude Rapid) [place] 222913-02-21 12:50:00 Test Item Value Reference Range Interpretation Comments G-value Rapid (test code = G-value 9.2 5.0-11.6 Rapid) [place] 222913-02-21 12:50:00 Test Item Value Reference Range Interpretation Comments Estimated % Lysis Rapid 0.0 See_Comment [Au tomated message] The (test code = Estimated syste m which generated % Lysis Rapid) this result t ransmitted reference range : <=7.5. The reference r christiano was not used to int erpret this result as normal/abnormal . [facility]GE[facility]98[facility] 12:50:00 Test Item Value Reference Range Interpretation Comments Plt Morph (test code = See Note 1(11/21/22 Plt Morph) 6:50 AM) [place] 222913-02-21 12:50:00 Test Item Value Reference Range Interpretation Comments Stomatocyte (test code = Stomatocyte) slight [place] 222913-02-21 12:50:00 Test Item Value Reference Range Interpretation Comments WBC X 10x3 (test code = WBC X 10x3) 8.7 3.7-10.4 [place] 222913-02-21 12:50:00 Test Item Value Reference Range Interpretation Comments RBC X 10x6 (test code = RBC X 10x6) 3.56 4.20-5.40 [facility] CenterAfhqfxeHXBQBLSQMH8314-01-27 12:50:00 Test Item Value Reference Range Interpretation Comments Hgb (test code = Hgb) 10.4 12.0-16.0 [place] [address]-02-21 12:50:00 Test Item Value Reference Range Interpretation Comments Hct (test code = Hct) 32.3 36.0-48.0 [facility] CenterTvvjpxgSMENDMENES6704-49-03 12:50:00 Test Item Value Reference Range Interpretation Comments MCV (test code = MCV) 90.8 80.0-98.0 [place] 222913-02-21 12:50:00 Test Item Value Reference Range Interpretation Comments MCH (test code = MCH) 29.3 pg 27.0-31.0 [place] 222913-02-21 12:50:00 Test Item Value Reference Range Interpretation Comments MCHC (test code = MCHC) 32.2 32.0-36.0 [place] [address]-02-21 12:50:00 Test Item Value Reference Range Interpretation Comments RDW (test code = RDW) 13.7 11.5-14.5 [place] 222913-02-21 12:50:00 Test Item Value Reference Range Interpretation Comments Platelet (test code = Platelet) 137 133-450 [place] 222913-02-21 12:50:00 Test Item Value Reference Range Interpretation Comments MPV (test code = MPV) 7.9 7.4-10.4 [place] [address]-02-21 12:50:00 Test Item Value Reference Range Interpretation Comments ACT (TEG) Rapid (test code = ACT (TEG) 113 s 86-118 Rapid) [place] [address]-02-21 12:50:00 Test Item Value Reference Range Interpretation Comments Split Point Rapid (test code = Split 0.6 min Point Rapid) [place] [address]-02-21 12:50:00 Test Item Value Reference Range Interpretation Comments R-time Rapid (test code = R-time 0.7 min 0.4-0.7 Rapid) [place] [address]-02-21 12:50:00 Test Item Value Reference Range Interpretation Comments K-time Rapid (test code = K-time 1.1 min 0.6-2.3 Rapid) [place] [address]-02-21 12:50:00 Test Item Value Reference Range Interpretation Comments Angle Rapid (test code = Angle 78 degrees 64-80 Rapid) [place] [address]-02-21 12:50:00 Test Item Value Reference Range Interpretation Comments Max Amplitude Rapid (test code = Max 65 mm 52-71 Amplitude Rapid) [place] [address]-02-21 12:50:00 Test Item Value Reference Range Interpretation Comments G-value Rapid (test code = G-value 9.2 5.0-11.6 Rapid) [place] [address]-02-21 12:50:00 Test Item Value Reference Range Interpretation Comments Estimated % Lysis Rapid 0.0 See_Comment [Au tomated message] The (test code = Estimated syste m which generated % Lysis Rapid) this result t ransmitted reference range : <=7.5. The reference r christiano was not used to int erpret this result as normal/abnormal . [place] 222913-02-21 12:50:00 Test Item Value Reference Range Interpretation Comments Plt Morph (test code = See Note 1(11/21/22 Plt Morph) 6:50 AM) [place] [address]-02-21 12:50:00 Test Item Value Reference Range Interpretation Comments Segs (test code = Segs) 64.1 45.0-75.0 [place] 222913-02-21 12:50:00 Test Item Value Reference Range Interpretation Comments Lymphocytes (test code = Lymphocytes) 22.0 20.0-40.0 [place] 222913-02-21 12:50:00 Test Item Value Reference Range Interpretation Comments Monocytes (test code = Monocytes) 8.3 2.0-12.0 [place] 222913-02-21 12:50:00 Test Item Value Reference Range Interpretation Comments Eosinophils (test code = 4.7 See_Comment [A utomated message] The Eosinophils) system which ge nerated this result tra nsmitted reference range : <=4.0. The reference r christiano was not used to int erpret this result as normal/abnormal . [place] [address]-02-21 12:50:00 Test Item Value Reference Range Interpretation Comments Basophils (test code = 0.9 See_Comment [Aut omated message] The Basophils) system which ge nerated this result tra nsmitted reference range : <=1.0. The reference r christiano was not used to int erpret this result as normal/abnormal . [place] 222913-02-21 12:50:00 Test Item Value Reference Range Interpretation Comments Neutrophils # (test code = Neutrophils 5.6 1.5-8.1 #) [place] [address]-02-21 12:50:00 Test Item Value Reference Range Interpretation Comments Lymphocytes # (test code = Lymphocytes 1.9 1.0-5.5 #) [place] [address]-02-21 12:50:00 Test Item Value Reference Range Interpretation Comments Monocytes # (test code 0.7 See_Comment [Aut omated message] The = Monocytes #) system which generated this result tra nsmitted reference range : <=0.8. The reference r christiano was not used to int erpret this result as normal/abnormal . [place] [address]-02-21 12:50:00 Test Item Value Reference Range Interpretation Comments Eosinophils # (test code 0.4 See_Comment [A utomated message] The = Eosinophils #) system ic h generated this result tra nsmitted reference range : <=0.5. The reference r christiano was not used to int erpret this result as normal/abnormal . [facility] UatxsnzSDRNRPAYML7879-87-57 12:50:00 Test Item Value Reference Range Interpretation Comments Basophils # (test code 0.1 See_Comment [Aut omated message] The = Basophils #) system which generated this result tra nsmitted reference range : <=0.2. The reference r christiano was not used to int erpret this result as normal/abnormal . [facility] TpqjjodXBMXKLYACW8432-04-24 12:50:00 Test Item Value Reference Range Interpretation Comments Stomatocyte (test code = Stomatocyte) slight [facility] WckylckVHYGNTOARG2218-94-70 12:50:00 Test Item Value Reference Range Interpretation Comments Ethanol Lvl (test code = Ethanol Lvl) no gt [facility] CcpazqcKZHAYFBCYP8195-19-38 12:50:00 Test Item Value Reference Range Interpretation Comments Etoh (%) (test code = Etoh (%)) no gt [facility] [employer] 1 [id number] 12:50:00 Test Item Value Reference Range Interpretation Comments ABO/Rh (test code = ABO/Rh) O POS [facility] [employer] [facility] [id number] 12:50:00 Test Item Value Reference Range Interpretation Comments Antibody Scrn (test Negative (11/21/22 6:50 code = Antibody Scrn) AM) [facility] [employer] [facility] [id number] 12:50:00 Test Item Value Reference Range Interpretation Comments ABO/Rh (test code = ABO/Rh) O POS [facility] [employer] [facility] [id number] 12:50:00 Test Item Value Reference Range Interpretation Comments Antibody Scrn (test Negative (11/21/22 6:50 code = Antibody Scrn) AM) [facility] [employer] DGLRIOV2210-94-70 12:50:00 Test Item Value Reference Range Interpretation Comments HS Troponin I (test code = HS Troponin 15 I) [facility] [employer] [facility] [id number] 12:50:00 Test Item Value Reference Range Interpretation Comments Glucose Lvl (test code = Glucose Lvl) 99 70-99 [employer] [id number] 12:50:00 Test Item Value Reference Range Interpretation Comments BUN (test code = BUN) 38 7-22 [facility] [id number] 12:50:00 Test Item Value Reference Range Interpretation Comments Creatinine Lvl (test code = Creatinine 2.38 0.50-1.40 Lvl) [place] 678383-02-21 12:50:00 Test Item Value Reference Range Interpretation Comments Sodium Lvl (test code = Sodium Lvl) 140 135-145 [place] 678383-02-21 12:50:00 Test Item Value Reference Range Interpretation Comments Potassium Lvl (test code = Potassium 3.9 3.5-5.1 Lvl) [place] 678383-02-21 12:50:00 Test Item Value Reference Range Interpretation Comments Chloride Lvl (test code = Chloride Lvl) 107 95-109 [place] 678383-02-21 12:50:00 Test Item Value Reference Range Interpretation Comments CO2 (test code = CO2) 27 24-32 [place] 678383-02-21 12:50:00 Test Item Value Reference Range Interpretation Comments Calcium Lvl (test code = Calcium Lvl) 8.1 8.5-10.5 [place] 678383-02-21 12:50:00 Test Item Value Reference Range Interpretation Comments AGAP (test code = AGAP) 9.9 10.0-20.0 [place] 678383-02-21 12:50:00 Test Item Value Reference Range Interpretation Comments eGFR (test code = eGFR) 20 [place] 678383-02-21 12:50:00 Test Item Value Reference Range Interpretation Comments Lactic Acid Lvl (test code = Lactic 0.7 0.5-2.2 Acid Lvl) [place] 678383-02-21 12:50:00 Test Item Value Reference Range Interpretation Comments Total Protein (test code = Total 6.1 6.4-8.4 Protein) [place] 678383-02-21 12:50:00 Test Item Value Reference Range Interpretation Comments Albumin Lvl (test code = Albumin Lvl) 2.9 3.5-5.0 [place] 678383-02-21 12:50:00 Test Item Value Reference Range Interpretation Comments Globulin (test code = Globulin) 3.2 2.7-4.2 [place] 678383-02-21 12:50:00 Test Item Value Reference Range Interpretation Comments A/G Ratio (test code = A/G Ratio) 0.9 1 0.7-1.6 [facility] [id number] 12:50:00 Test Item Value Reference Range Interpretation Comments ALT (test code = ALT) 16 See_Comment [Auto mated message] The system which ge nerated this result transmit sheba reference range : <=65. The reference range was not used to interpr et this result as edy l/abnormal. [facility] [id number] 12:50:00 Test Item Value Reference Range Interpretation Comments AST (test code = AST) 15 See_Comment [Auto mated message] The system which ge nerated this result transmit sheba reference range : <=37. The reference range was not used to interpr et this result as edy l/abnormal. [facility] [id number] 12:50:00 Test Item Value Reference Range Interpretation Comments Alk Phos (test code = Alk Phos) 96 39-136 [facility] [id number] 12:50:00 Test Item Value Reference Range Interpretation Comments Bili Total (test code = Bili Total) 0.2 0.2-1.3 [facility] FallsOrbFlex [id number] 12:50:00 Test Item Value Reference Range Interpretation Comments Bili Direct (test code no gt See_Comment [Aut omated message] The = Bili Direct) system which generated this result tra nsmitted reference range : <=0.3. The reference r christiano was not used to int erpret this result as edy l/abnormal. [facility] [id number] 12:50:00 Test Item Value Reference Range Interpretation Comments Bili Indirect Unable to See_Comment [Automated (test code = Bili Calculate message] T he system Indirect) which generated this result transmitted reference range : <=1.0. The reference range was not used to interpret this result as normal/abnormal . [facility] FallsRpoxvnsSZZGATNCL4748-58-98 12:50:00 Test Item Value Reference Range Interpretation Comments Ethanol Lvl (test code = Ethanol Lvl) no gt [facility] FallsLkulgrcYXFZMRNRJ3837-33-82 12:50:00 Test Item Value Reference Range Interpretation Comments Etoh (%) (test code = Etoh (%)) [facility] gt [facility]IiqkpfbPFNFUTTBQ5005-61-88 12:50:00 Test Item Value Reference Range Interpretation Comments Lactic Acid Lvl (test code = Lactic 0.7 0.5-2.2 Acid Lvl) [facility]anoBqifpicROIODKFHC1175-30-92 12:50:00 Test Item Value Reference Range Interpretation Comments Total Protein (test code = Total 6.1 6.4-8.4 Protein) [facility] PlanoVsatbmiKEFOSGSCM2303-86-21 12:50:00 Test Item Value Reference Range Interpretation Comments Albumin Lvl (test code = Albumin Lvl) 2.9 3.5-5.0 [place] 087233-02-21 12:50:00 Test Item Value Reference Range Interpretation Comments Globulin (test code = Globulin) 3.2 2.7-4.2 [place] [address]-02-21 12:50:00 Test Item Value Reference Range Interpretation Comments A/G Ratio (test code = A/G Ratio) 0.9 1 0.7-1.6 [place] [address]-02-21 12:50:00 Test Item Value Reference Range Interpretation Comments ALT (test code = ALT) 16 See_Comment [Auto mated message] The system which ge nerated this result transmit sheba reference range : <=65. The reference range was not used to interpr et this result as edy l/abnormal. [facility] PlanoYrxdgfmJQLZSZGHC5393-30-24 12:50:00 Test Item Value Reference Range Interpretation Comments AST (test code = AST) 15 See_Comment [Auto mated message] The system which ge nerated this result transmit sheba reference range : <=37. The reference range was not used to interpr et this result as edy l/abnormal. [facility] PlanoTacmedgGGLQLXBCP6148-34-53 12:50:00 Test Item Value Reference Range Interpretation Comments Alk Phos (test code = Alk Phos) 96 39-136 [place] 087233-02-21 12:50:00 Test Item Value Reference Range Interpretation Comments Bili Total (test code = Bili Total) 0.2 0.2-1.3 [place] 087233-02-21 12:50:00 Test Item Value Reference Range Interpretation Comments Bili Direct (test code no gt See_Comment [Aut omated message] The = Bili Direct) system which generated this result tra nsmitted reference range : <=0.3. The reference r christiano was not used to int erpret this result as edy l/abnormal. [facility] PlanoLxcbfvbVVCNTPFTA7612-36-62 12:50:00 Test Item Value Reference Range Interpretation Comments Bili Indirect Unable to See_Comment [Automated (test code = Bili Calculate message] T he system Indirect) which generated this result transmitted reference range : <=1.0. The reference range was not used to interpret this result as normal/abnormal . [facility] PlanoNbwyznzCPQBGTZTK3149-67-69 12:50:00 Test Item Value Reference Range Interpretation Comments HS Troponin I (test code = HS Troponin 15 I) [facility] PlanoDgexowuOZDZCJIQE6970-27-25 12:50:00 Test Item Value Reference Range Interpretation Comments pH Justin (test code = pH Justin) 7.35 1 7.28-7.42 [place] 087233-02-21 12:50:00 Test Item Value Reference Range Interpretation Comments pCO2 Justin (test code = pCO2 Justin) 55 38-52 [place] 087233-02-21 12:50:00 Test Item Value Reference Range Interpretation Comments pO2 Justin (test code = pO2 Justin) 43 20-49 [place] 087233-02-21 12:50:00 Test Item Value Reference Range Interpretation Comments HCO3 Justin (test code = HCO3 Justin) 30 22-26 [place] 087233-02-21 12:50:00 Test Item Value Reference Range Interpretation Comments BE Justin (test code = BE Justin) 3 -2-2 [facility] PlanoDojlqieRCGRLTDLS2300-28-35 12:50:00 Test Item Value Reference Range Interpretation Comments O2 Sat Justin (calc) (test code = O2 Sat 75.9 40.0-70.0 Justin (calc)) [facility] PlanoFsrgtigKXVOYOGQA3254-37-40 12:50:00 Test Item Value Reference Range Interpretation Comments Temp Justin (test code = Temp Justin) 37.0 [place] 222913-02-21 12:50:00 Test Item Value Reference Range Interpretation Comments ACT (TEG) Rapid (test code = ACT (TEG) 113 s 86-118 Rapid) [place] 222913-02-21 12:50:00 Test Item Value Reference Range Interpretation Comments Split Point Rapid (test code = Split 0.6 min Point Rapid) [facility] CenterRhudonfTQQJJECZUB1757-49-03 12:50:00 Test Item Value Reference Range Interpretation Comments R-time Rapid (test code = R-time 0.7 min 0.4-0.7 Rapid) [place] [address]-02-21 12:50:00 Test Item Value Reference Range Interpretation Comments K-time Rapid (test code = K-time 1.1 min 0.6-2.3 Rapid) [place] [address]-02-21 12:50:00 Test Item Value Reference Range Interpretation Comments Angle Rapid (test code = Angle 78 degrees 64-80 Rapid) [place] [address]-02-21 12:50:00 Test Item Value Reference Range Interpretation Comments Max Amplitude Rapid (test code = Max 65 mm 52-71 Amplitude Rapid) [place] [address]-02-21 12:50:00 Test Item Value Reference Range Interpretation Comments G-value Rapid (test code = G-value 9.2 5.0-11.6 Rapid) [place] [address]-02-21 12:50:00 Test Item Value Reference Range Interpretation Comments Estimated % Lysis Rapid 0.0 See_Comment [Au tomated message] The (test code = Estimated syste m which generated % Lysis Rapid) this result t ransmitted reference range : <=7.5. The reference r christiano was not used to int erpret this result as normal/abnormal . [place] 222913-02-21 12:50:00 Test Item Value Reference Range Interpretation Comments Plt Morph (test code = See Note 1(11/21/22 Plt Morph) 6:50 AM) [place] [address]-02-21 12:50:00 Test Item Value Reference Range Interpretation Comments Stomatocyte (test code = Stomatocyte) slight [place] [address]-02-21 12:50:00 Test Item Value Reference Range Interpretation Comments WBC X 10x3 (test code = WBC X 10x3) 8.7 3.7-10.4 [place] [address]-02-21 12:50:00 Test Item Value Reference Range Interpretation Comments RBC X 10x6 (test code = RBC X 10x6) 3.56 4.20-5.40 [place] [address]-02-21 12:50:00 Test Item Value Reference Range Interpretation Comments Hgb (test code = Hgb) 10.4 12.0-16.0 [place] [address]-02-21 12:50:00 Test Item Value Reference Range Interpretation Comments Hct (test code = Hct) 32.3 36.0-48.0 [place] [address]-02-21 12:50:00 Test Item Value Reference Range Interpretation Comments MCV (test code = MCV) 90.8 80.0-98.0 [place] [address]-02-21 12:50:00 Test Item Value Reference Range Interpretation Comments MCH (test code = MCH) 29.3 pg 27.0-31.0 [place] [address]-02-21 12:50:00 Test Item Value Reference Range Interpretation Comments MCHC (test code = MCHC) 32.2 32.0-36.0 [place] [address]-02-21 12:50:00 Test Item Value Reference Range Interpretation Comments RDW (test code = RDW) 13.7 11.5-14.5 [place] [address]-02-21 12:50:00 Test Item Value Reference Range Interpretation Comments Platelet (test code = Platelet) 137 133-450 [place] [address]-02-21 12:50:00 Test Item Value Reference Range Interpretation Comments MPV (test code = MPV) 7.9 7.4-10.4 [place] [address]-02-21 12:50:00 Test Item Value Reference Range Interpretation Comments ACT (TEG) Rapid (test code = ACT (TEG) 113 s 86-118 Rapid) [place] [address]-02-21 12:50:00 Test Item Value Reference Range Interpretation Comments Split Point Rapid (test code = Split 0.6 min Point Rapid) [place] [address]-02-21 12:50:00 Test Item Value Reference Range Interpretation Comments R-time Rapid (test code = R-time 0.7 min 0.4-0.7 Rapid) [place] [address]-02-21 12:50:00 Test Item Value Reference Range Interpretation Comments K-time Rapid (test code = K-time 1.1 min 0.6-2.3 Rapid) [place] [address]-02-21 12:50:00 Test Item Value Reference Range Interpretation Comments Angle Rapid (test code = Angle 78 degrees 64-80 Rapid) [place] 222913-02-21 12:50:00 Test Item Value Reference Range Interpretation Comments Max Amplitude Rapid (test code = Max 65 mm 52-71 Amplitude Rapid) [place] [address]-02-21 12:50:00 Test Item Value Reference Range Interpretation Comments G-value Rapid (test code = G-value 9.2 5.0-11.6 Rapid) [place] [address]-02-21 12:50:00 Test Item Value Reference Range Interpretation Comments Estimated % Lysis Rapid 0.0 See_Comment [Au tomated message] The (test code = Estimated syste m which generated % Lysis Rapid) this result t ransmitted reference range : <=7.5. The reference r christiano was not used to int erpret this result as normal/abnormal . [place] [address]-02-21 12:50:00 Test Item Value Reference Range Interpretation Comments Plt Morph (test code = See Note 1(11/21/22 Plt Morph) 6:50 AM) [place] [address]-02-21 12:50:00 Test Item Value Reference Range Interpretation Comments Segs (test code = Segs) 64.1 45.0-75.0 [place] [address]-02-21 12:50:00 Test Item Value Reference Range Interpretation Comments Lymphocytes (test code = Lymphocytes) 22.0 20.0-40.0 [place] [address]-02-21 12:50:00 Test Item Value Reference Range Interpretation Comments Monocytes (test code = Monocytes) 8.3 2.0-12.0 [place] [address]-02-21 12:50:00 Test Item Value Reference Range Interpretation Comments Eosinophils (test code = 4.7 See_Comment [A utomated message] The Eosinophils) system which ge nerated this result tra nsmitted reference range : <=4.0. The reference r christiano was not used to int erpret this result as normal/abnormal . [place] [address]-02-21 12:50:00 Test Item Value Reference Range Interpretation Comments Basophils (test code = 0.9 See_Comment [Aut omated message] The Basophils) system which ge nerated this result tra nsmitted reference range : <=1.0. The reference r christiano was not used to int erpret this result as normal/abnormal . [facility]WpwmxkoSCBGZDZRBD0874-60-67 12:50:00 Test Item Value Reference Range Interpretation Comments Neutrophils # (test code = Neutrophils 5.6 1.5-8.1 #) [facility]ls[facility]ixaMFRXQAYQMW0363-67-73 12:50:00 Test Item Value Reference Range Interpretation Comments Lymphocytes # (test code = Lymphocytes 1.9 1.0-5.5 #) [facility] CenterRvzwrqnYKWTGEVUCF5972-12-31 12:50:00 Test Item Value Reference Range Interpretation Comments Monocytes # (test code 0.7 See_Comment [Aut omated message] The = Monocytes #) system which generated this result tra nsmitted reference range : <=0.8. The reference r christiano was not used to int erpret this result as normal/abnormal . [facility] CenterDrvpawzWRHYBOKULX6060-00-57 12:50:00 Test Item Value Reference Range Interpretation Comments Eosinophils # (test code 0.4 See_Comment [A utomated message] The = Eosinophils #) system whic h generated this result tra nsmitted reference range : <=0.5. The reference r christiano was not used to int erpret this result as normal/abnormal . [facility] CenterTmcrjrsZXFAHWBCFI5629-04-32 12:50:00 Test Item Value Reference Range Interpretation Comments Basophils # (test code 0.1 See_Comment [Aut omated message] The = Basophils #) system which generated this result tra nsmitted reference range : <=0.2. The reference r christiano was not used to int erpret this result as normal/abnormal . [facility] CenterAyigmowQJBKVTCYIW7847-57-59 12:50:00 Test Item Value Reference Range Interpretation Comments Stomatocyte (test code = Stomatocyte) slight [facility] CenterOmipfzdDXXBFKEKER6468-49-71 12:50:00 Test Item Value Reference Range Interpretation Comments Ethanol Lvl (test code = Ethanol Lvl) no gt [facility] FallsKsyqhxbEIUCFAOSZU7525-17-40 12:50:00 Test Item Value Reference Range Interpretation Comments Etoh (%) (test code = Etoh (%)) no gt [facility] 1 [id number] 12:50:00 Test Item Value Reference Range Interpretation Comments ABO/Rh (test code = ABO/Rh) O POS [facility] 1 [id number] 12:50:00 Test Item Value Reference Range Interpretation Comments Antibody Scrn (test Negative (11/21/22 6:50 code = Antibody Scrn) AM) [facility] CenterLexpertia.[facility] [id number] 12:50:00 Test Item Value Reference Range Interpretation Comments ABO/Rh (test code = ABO/Rh) O POS [facility] 1 [id number] 12:50:00 Test Item Value Reference Range Interpretation Comments Antibody Scrn (test Negative (11/21/22 6:50 code = Antibody Scrn) AM) [facility] CenterCARDIAC [id number] 12:50:00 Test Item Value Reference Range Interpretation Comments HS Troponin I (test code = HS Troponin 15 I) [facility] [id number] 12:50:00 Test Item Value Reference Range Interpretation Comments Glucose Lvl (test code = Glucose Lvl) 99 70-99 [facility] [id number] 12:50:00 Test Item Value Reference Range Interpretation Comments BUN (test code = BUN) 38 7-22 [facility] [id number] 12:50:00 Test Item Value Reference Range Interpretation Comments Creatinine Lvl (test code = Creatinine 2.38 0.50-1.40 Lvl) [facility] [id number] 12:50:00 Test Item Value Reference Range Interpretation Comments Sodium Lvl (test code = Sodium Lvl) 140 135-145 [facility]olar2023-02-21 12:50:00 Test Item Value Reference Range Interpretation Comments Potassium Lvl (test code = Potassium 3.9 3.5-5.1 Lvl) [facility] [id number] 12:50:00 Test Item Value Reference Range Interpretation Comments Chloride Lvl (test code = Chloride Lvl) 107 95-109 [facility]olar2023-02-21 12:50:00 Test Item Value Reference Range Interpretation Comments CO2 (test code = CO2) 27 24-32 [facility] [id number] 12:50:00 Test Item Value Reference Range Interpretation Comments Calcium Lvl (test code = Calcium Lvl) 8.1 8.5-10.5 [facility] [id number] 12:50:00 Test Item Value Reference Range Interpretation Comments AGAP (test code = AGAP) 9.9 10.0-20.0 [place] 678383-02-21 12:50:00 Test Item Value Reference Range Interpretation Comments eGFR (test code = eGFR) 20 [place] 678383-02-21 12:50:00 Test Item Value Reference Range Interpretation Comments Lactic Acid Lvl (test code = Lactic 0.7 0.5-2.2 Acid Lvl) [place] 678383-02-21 12:50:00 Test Item Value Reference Range Interpretation Comments Total Protein (test code = Total 6.1 6.4-8.4 Protein) [place] 678383-02-21 12:50:00 Test Item Value Reference Range Interpretation Comments Albumin Lvl (test code = Albumin Lvl) 2.9 3.5-5.0 [place] 678383-02-21 12:50:00 Test Item Value Reference Range Interpretation Comments Globulin (test code = Globulin) 3.2 2.7-4.2 [place] 678383-02-21 12:50:00 Test Item Value Reference Range Interpretation Comments A/G Ratio (test code = A/G Ratio) 0.9 1 0.7-1.6 [place] 678383-02-21 12:50:00 Test Item Value Reference Range Interpretation Comments ALT (test code = ALT) 16 See_Comment [Auto mated message] The system which ge nerated this result transmit sheba reference range : <=65. The reference range was not used to interpr et this result as edy l/abnormal. [facility] [id number] 12:50:00 Test Item Value Reference Range Interpretation Comments AST (test code = AST) 15 See_Comment [Auto mated message] The system which ge nerated this result transmit sheba reference range : <=37. The reference range was not used to interpr et this result as edy l/abnormal. [facility] [id number] 12:50:00 Test Item Value Reference Range Interpretation Comments Alk Phos (test code = Alk Phos) 96 39-136 [facility] [id number] 12:50:00 Test Item Value Reference Range Interpretation Comments Bili Total (test code = Bili Total) 0.2 0.2-1.3 [place] 678383-02-21 12:50:00 Test Item Value Reference Range Interpretation Comments Bili Direct (test code no gt See_Comment [Aut omated message] The = Bili Direct) system which generated this result tra nsmitted reference range : <=0.3. The reference r christiano was not used to int erpret this result as edy l/abnormal. [facility] [id number] 12:50:00 Test Item Value Reference Range Interpretation Comments Bili Indirect Unable to See_Comment [Automated (test code = Bili Calculate message] T he system Indirect) which generated this result transmitted reference range : <=1.0. The reference range was not used to interpret this result as normal/abnormal . [place] 087233-02-21 12:50:00 Test Item Value Reference Range Interpretation Comments Ethanol Lvl (test code = Ethanol Lvl) no gt [facility]anoGvkfvisTFRUVQZMF8441-33-21 12:50:00 Test Item Value Reference Range Interpretation Comments Etoh (%) (test code = Etoh (%)) no gt [place] 087233-02-21 12:50:00 Test Item Value Reference Range Interpretation Comments Lactic Acid Lvl (test code = Lactic 0.7 0.5-2.2 Acid Lvl) [place] [address]-02-21 12:50:00 Test Item Value Reference Range Interpretation Comments Total Protein (test code = Total 6.1 6.4-8.4 Protein) [place] 087233-02-21 12:50:00 Test Item Value Reference Range Interpretation Comments Albumin Lvl (test code = Albumin Lvl) 2.9 3.5-5.0 [place] 087233-02-21 12:50:00 Test Item Value Reference Range Interpretation Comments Globulin (test code = Globulin) 3.2 2.7-4.2 [place] [address]-02-21 12:50:00 Test Item Value Reference Range Interpretation Comments A/G Ratio (test code = A/G Ratio) 0.9 1 0.7-1.6 [place] 087233-02-21 12:50:00 Test Item Value Reference Range Interpretation Comments ALT (test code = ALT) 16 See_Comment [Auto mated message] The system which ge nerated this result transmit sheba reference range : <=65. The reference range was not used to interpr et this result as edy l/abnormal. [facility] FallsSgymlakNOXEZAEMP8727-47-91 12:50:00 Test Item Value Reference Range Interpretation Comments AST (test code = AST) 15 See_Comment [Auto mated message] The system which ge nerated this result transmit sheba reference range : <=37. The reference range was not used to interpr et this result as edy l/abnormal. [facility] CenterUxpzlsqWOJWKVHWU4108-76-41 12:50:00 Test Item Value Reference Range Interpretation Comments Alk Phos (test code = Alk Phos) 96 39-136 [facility] CenterHnekdfyKONZWPVAK7167-94-71 12:50:00 Test Item Value Reference Range Interpretation Comments Bili Total (test code = Bili Total) 0.2 0.2-1.3 [facility] PlanoIvyboipJZJGHVCOA7678-01-13 12:50:00 Test Item Value Reference Range Interpretation Comments Bili Direct (test code no gt See_Comment [Aut omated message] The = Bili Direct) system which generated this result tra nsmitted reference range : <=0.3. The reference r christiano was not used to int erpret this result as edy l/abnormal. [facility] CenterRzbkwqlWCEKBGCLR2117-10-13 12:50:00 Test Item Value Reference Range Interpretation Comments Bili Indirect Unable to See_Comment [Automated (test code = Bili Calculate message] T he system Indirect) which generated this result transmitted reference range : <=1.0. The reference range was not used to interpret this result as normal/abnormal . [facility] FallsQxgklgwKMUKEUZPB4892-90-68 12:50:00 Test Item Value Reference Range Interpretation Comments HS Troponin I (test code = HS Troponin 15 I) [facility] CenterRzjrqrmDNSRSNLRO6526-96-52 12:50:00 Test Item Value Reference Range Interpretation Comments pH Justin (test code = pH Justin) 7.35 1 7.28-7.42 [facility] PlanoJihwaicDRFYKVPFV7016-69-95 12:50:00 Test Item Value Reference Range Interpretation Comments pCO2 Justin (test code = pCO2 Justin) 55 38-52 [facility] PlanoHvuuepnNLQYAUUWY0281-61-08 12:50:00 Test Item Value Reference Range Interpretation Comments pO2 Justin (test code = pO2 Justin) 43 20-49 [place] 087233-02-21 12:50:00 Test Item Value Reference Range Interpretation Comments HCO3 Justin (test code = HCO3 Justin) 30 22-26 [place] 087233-02-21 12:50:00 Test Item Value Reference Range Interpretation Comments BE Justin (test code = BE Justin) 3 -2-2 [place] 087233-02-21 12:50:00 Test Item Value Reference Range Interpretation Comments O2 Sat Justin (calc) (test code = O2 Sat 75.9 40.0-70.0 Justin (calc)) [place] 087233-02-21 12:50:00 Test Item Value Reference Range Interpretation Comments Temp Justin (test code = Temp Justin) 37.0 [place] 222913-02-21 12:50:00 Test Item Value Reference Range Interpretation Comments ACT (TEG) Rapid (test code = ACT (TEG) 113 s 86-118 Rapid) [place] 222913-02-21 12:50:00 Test Item Value Reference Range Interpretation Comments Split Point Rapid (test code = Split 0.6 min Point Rapid) [place] 222913-02-21 12:50:00 Test Item Value Reference Range Interpretation Comments R-time Rapid (test code = R-time 0.7 min 0.4-0.7 Rapid) [place] 222913-02-21 12:50:00 Test Item Value Reference Range Interpretation Comments K-time Rapid (test code = K-time 1.1 min 0.6-2.3 Rapid) [place] 222913-02-21 12:50:00 Test Item Value Reference Range Interpretation Comments Angle Rapid (test code = Angle 78 degrees 64-80 Rapid) [place] 222913-02-21 12:50:00 Test Item Value Reference Range Interpretation Comments Max Amplitude Rapid (test code = Max 65 mm 52-71 Amplitude Rapid) [place] 222913-02-21 12:50:00 Test Item Value Reference Range Interpretation Comments G-value Rapid (test code = G-value 9.2 5.0-11.6 Rapid) [place] 222913-02-21 12:50:00 Test Item Value Reference Range Interpretation Comments Estimated % Lysis Rapid 0.0 See_Comment [Au tomated message] The (test code = Estimated syste m which generated % Lysis Rapid) this result t ransmitted reference range : <=7.5. The reference r christiano was not used to int erpret this result as normal/abnormal . [facility] CenterGwtsbnyJXIJGUAUUD2374-32-77 12:50:00 Test Item Value Reference Range Interpretation Comments Plt Morph (test code = See Note 1(11/21/22 Plt Morph) 6:50 AM) [facility] CenterDydztvsQQIHTXTYOH8926-09-04 12:50:00 Test Item Value Reference Range Interpretation Comments Stomatocyte (test code = Stomatocyte) slight [place] 222913-02-21 12:50:00 Test Item Value Reference Range Interpretation Comments WBC X 10x3 (test code = WBC X 10x3) 8.7 3.7-10.4 [place] 222913-02-21 12:50:00 Test Item Value Reference Range Interpretation Comments RBC X 10x6 (test code = RBC X 10x6) 3.56 4.20-5.40 [place] 222913-02-21 12:50:00 Test Item Value Reference Range Interpretation Comments Hgb (test code = Hgb) 10.4 12.0-16.0 [place] 222913-02-21 12:50:00 Test Item Value Reference Range Interpretation Comments Hct (test code = Hct) 32.3 36.0-48.0 [facility] CenterBhhvatgCCFBPTQKVO2108-24-39 12:50:00 Test Item Value Reference Range Interpretation Comments MCV (test code = MCV) 90.8 80.0-98.0 [facility] CenterAgtbfzdKZMJVEISSE7241-25-03 12:50:00 Test Item Value Reference Range Interpretation Comments MCH (test code = MCH) 29.3 pg 27.0-31.0 [place] 222913-02-21 12:50:00 Test Item Value Reference Range Interpretation Comments MCHC (test code = MCHC) 32.2 32.0-36.0 [place] 222913-02-21 12:50:00 Test Item Value Reference Range Interpretation Comments RDW (test code = RDW) 13.7 11.5-14.5 [place] 222913-02-21 12:50:00 Test Item Value Reference Range Interpretation Comments Platelet (test code = Platelet) 137 133-450 [place] [address]-02-21 12:50:00 Test Item Value Reference Range Interpretation Comments MPV (test code = MPV) 7.9 7.4-10.4 [place] [address]-02-21 12:50:00 Test Item Value Reference Range Interpretation Comments ACT (TEG) Rapid (test code = ACT (TEG) 113 s 86-118 Rapid) [place] [address]-02-21 12:50:00 Test Item Value Reference Range Interpretation Comments Split Point Rapid (test code = Split 0.6 min Point Rapid) [place] [address]-02-21 12:50:00 Test Item Value Reference Range Interpretation Comments R-time Rapid (test code = R-time 0.7 min 0.4-0.7 Rapid) [place] [address]-02-21 12:50:00 Test Item Value Reference Range Interpretation Comments K-time Rapid (test code = K-time 1.1 min 0.6-2.3 Rapid) [place] [address]-02-21 12:50:00 Test Item Value Reference Range Interpretation Comments Angle Rapid (test code = Angle 78 degrees 64-80 Rapid) [place] [address]-02-21 12:50:00 Test Item Value Reference Range Interpretation Comments Max Amplitude Rapid (test code = Max 65 mm 52-71 Amplitude Rapid) [place] [address]-02-21 12:50:00 Test Item Value Reference Range Interpretation Comments G-value Rapid (test code = G-value 9.2 5.0-11.6 Rapid) [place] [address]-02-21 12:50:00 Test Item Value Reference Range Interpretation Comments Estimated % Lysis Rapid 0.0 See_Comment [Au tomated message] The (test code = Estimated syste m which generated % Lysis Rapid) this result t ransmitted reference range : <=7.5. The reference r christiano was not used to int erpret this result as normal/abnormal . [place] 222913-02-21 12:50:00 Test Item Value Reference Range Interpretation Comments Plt Morph (test code = See Note 1(11/21/22 Plt Morph) 6:50 AM) [place] [address]-02-21 12:50:00 Test Item Value Reference Range Interpretation Comments Segs (test code = Segs) 64.1 45.0-75.0 [facility] CenterKctlqfqDVPDVBDPSE7782-36-29 12:50:00 Test Item Value Reference Range Interpretation Comments Lymphocytes (test code = Lymphocytes) 22.0 20.0-40.0 [place] 222913-02-21 12:50:00 Test Item Value Reference Range Interpretation Comments Monocytes (test code = Monocytes) 8.3 2.0-12.0 [place] 222913-02-21 12:50:00 Test Item Value Reference Range Interpretation Comments Eosinophils (test code = 4.7 See_Comment [A utomated message] The Eosinophils) system which ge nerated this result tra nsmitted reference range : <=4.0. The reference r christiano was not used to int erpret this result as normal/abnormal . [place] 222913-02-21 12:50:00 Test Item Value Reference Range Interpretation Comments Basophils (test code = 0.9 See_Comment [Aut omated message] The Basophils) system which ge nerated this result tra nsmitted reference range : <=1.0. The reference r christiano was not used to int erpret this result as normal/abnormal . [facility] CenterFniqwqzZFAHTYUKSW0935-02-54 12:50:00 Test Item Value Reference Range Interpretation Comments Neutrophils # (test code = Neutrophils 5.6 1.5-8.1 #) [place] 222913-02-21 12:50:00 Test Item Value Reference Range Interpretation Comments Lymphocytes # (test code = Lymphocytes 1.9 1.0-5.5 #) [place] 222913-02-21 12:50:00 Test Item Value Reference Range Interpretation Comments Monocytes # (test code 0.7 See_Comment [Aut omated message] The = Monocytes #) system which generated this result tra nsmitted reference range : <=0.8. The reference r christiano was not used to int erpret this result as normal/abnormal . [place] 222913-02-21 12:50:00 Test Item Value Reference Range Interpretation Comments Eosinophils # (test code 0.4 See_Comment [A utomated message] The = Eosinophils #) system ic h generated this result tra nsmitted reference range : <=0.5. The reference r christiano was not used to int erpret this result as normal/abnormal . [facility] CenterYtwxdigMIYSBKVKVS8490-01-92 12:50:00 Test Item Value Reference Range Interpretation Comments Basophils # (test code 0.1 See_Comment [Aut omated message] The = Basophils #) system which generated this result tra nsmitted reference range : <=0.2. The reference r christiano was not used to int erpret this result as normal/abnormal . [facility] CenterEawpbzaPXXSBRJOFJ3236-86-13 12:50:00 Test Item Value Reference Range Interpretation Comments Stomatocyte (test code = Stomatocyte) slight [facility] CenterSrqazcmQMQGJJBHQP2895-93-56 12:50:00 Test Item Value Reference Range Interpretation Comments Ethanol Lvl (test code = Ethanol Lvl) no gt [facility] CenterKfuettlAJMFRTMGIA0634-54-46 12:50:00 Test Item Value Reference Range Interpretation Comments Etoh (%) (test code = Etoh (%)) [facility]BPB[facility] 12:25:01 Test Item Value Reference Range Interpretation [...] and resurfacing of the patella.[facility] SE[facility]CzrwoxhTNTXPF3356-04-[facility] 12:25:01 Test Item Value Reference Range Interpretation [...] [facility] the [facility]ella[facility] Test Item Value Reference Range Interpretation [...] arthroplasty and resurfacing of the patella.[facility] 12:25:01 Test Item Value Reference Range Interpretation [...] arthroplasty and resurfacing of the patella.[facility] 12:25:01 Test Item Value Reference Range Interpretation [...] arthroplasty and resurfacing of the patella.UT SECTION: [place] 15298023-02-21 12:25:01 Test Item Value Reference Range Interpretation [...] arthroplasty and resurfacing of the patella.UT SECTION: [place] 094523-02-21 12:25:01 Test Item Value Reference Range Interpretation [...] arthroplasty and resurfacing of the patella.UT SECTION: [place] 15298023-02-21 12:25:01 Test Item Value Reference Range Interpretation [...] arthroplasty and resurfacing of the patella.UT SECTION: [place] 094523-02-21 11:23:44 Test Item Value Reference Range Interpretation [...] along the tentorium. No significant midline shift. [place] 85182023-02-21 11:23:44 Test Item Value Reference Range Interpretation [...] along the tentorium. No significant midline shift. [place] 85182023-02-21 11:23:44 Test Item Value Reference Range Interpretation [...] along the tentorium. No significant midline shift. [facility]pjybwiWNBQMW3215-17-62 11:23:44 Test Item Value Reference Range Interpretation [...] along the tentorium. No significant midline shift. [facility] HospitalUwsvmxfVFDIQS6189-30-62 11:23:44 Test Item Value Reference Range Interpretation [...] along the tentorium. No significant midline shift. [place] 85182023-02-21 11:23:44 Test Item Value Reference Range Interpretation [...] along the tentorium. No significant midline shift. [facility] HospitalChotbvlDFTBFJ8361-34-55 11:23:44 Test Item Value Reference Range Interpretation [...] the tentorium. No significant midline shift. [facility] CenterZlthbkpZEINXB6585-12-67 11:23:44 Test Item Value Reference Range Interpretation [...] along the tentorium. No significant midline shift. [facility]2020-12-07 10:24:00 Test Item Value Reference Range Interpretation Comments Glucose Lvl (test code = Glucose Lvl) 66 70-99 [facility]2020-12-07 10:24:00 Test Item Value Reference Range Interpretation Comments BUN (test code = BUN) 19 7-22 [facility]2020-12-07 10:24:00 Test Item Value Reference Range Interpretation Comments Creatinine Lvl (test code = Creatinine 1.82 0.50-1.40 Lvl) [facility]2020-12-07 10:24:00 Test Item Value Reference Range Interpretation Comments Sodium Lvl (test code = Sodium Lvl) 139 135-145 [facility]2020-12-07 10:24:00 Test Item Value Reference Range Interpretation Comments Potassium Lvl (test code = Potassium 4.2 3.5-5.1 Lvl) [facility]2020-12-07 10:24:00 Test Item Value Reference Range Interpretation Comments Chloride Lvl (test code = Chloride Lvl) 105 95-109 [facility]2020-12-07 10:24:00 Test Item Value Reference Range Interpretation Comments CO2 (test code = CO2) [facility]2020-12-07 10:24:00 Test Item Value Reference Range Interpretation Comments Calcium Lvl (test code = Calcium Lvl) 8.2 8.5-10.5 [facility]2020-12-07 10:24:00 Test Item Value Reference Range Interpretation Comments AGAP (test code = AGAP) 10.2 10.0-20.0 [facility]2020-12-07 10:24:00 Test Item Value Reference Range Interpretation Comments Glucose Lvl (test code = Glucose Lvl) 66 70-99 [facility]2020-12-07 10:24:00 Test Item Value Reference Range Interpretation Comments BUN (test code = BUN) 04-21 [facility]2020-12-07 10:24:00 Test Item Value Reference Range Interpretation Comments Creatinine Lvl (test code = Creatinine 1.82 0.50-1.40 Lvl) [facility]2020-12-07 10:24:00 Test Item Value Reference Range Interpretation Comments Sodium Lvl (test code = Sodium Lvl) 139 135-145 [facility]2020-12-07 10:24:00 Test Item Value Reference Range Interpretation Comments Potassium Lvl (test code = Potassium 4.2 3.5-5.1 Lvl) [facility]2020-12-07 10:24:00 Test Item Value Reference Range Interpretation Comments eGFR (test code = eGFR) 26 [facility]2020-12-07 10:24:00 Test Item Value Reference Range Interpretation Comments Chloride Lvl (test code = Chloride Lvl) 105 95-109 [facility]2020-12-07 10:24:00 Test Item Value Reference Range Interpretation Comments CO2 (test code = CO2) [facility]2020-12-07 10:24:00 Test Item Value Reference Range Interpretation Comments Calcium Lvl (test code = Calcium Lvl) 8.2 8.5-10.5 [facility]2020-12-07 10:24:00 Test Item Value Reference Range Interpretation Comments AGAP (test code = AGAP) 10.2 10.0-20.0 [facility]2020-12-07 10:24:00 Test Item Value Reference Range Interpretation Comments eGFR (test code = eGFR) 26 [facility] CenterYyskswuIPLMTCAWDX7211-13-43 10:24:00 Test Item Value Reference Range Interpretation Comments Segs (test code = Segs) 70.6 45.0-75.0 [facility] CenterRflaanmDNWJYCTKHZ5224-90-29 10:24:00 Test Item Value Reference Range Interpretation Comments Lymphocytes (test code = Lymphocytes) 13.2 20.0-40.0 [facility] CenterGvohvfiQKQYASDCPE9883-47-41 10:24:00 Test Item Value Reference Range Interpretation Comments Monocytes (test code = Monocytes) 10.9 2.0-12.0 [facility] CenterFrkzltzZBQGDWANAY5695-06-58 10:24:00 Test Item Value Reference Range Interpretation Comments Eosinophils (test code = 4.6 See_Comment [A utomated message] The Eosinophils) system which ge nerated this result tra nsmitted reference range : <=4.0. The reference r christiano was not used to int erpret this result as normal/abnormal . [facility] CenterYbyqutzUJYNNGPFPN1940-08-39 10:24:00 Test Item Value Reference Range Interpretation Comments Basophils (test code = 0.7 See_Comment [Aut omated message] The Basophils) system which ge nerated this result tra nsmitted reference range : <=1.0. The reference r christiano was not used to int erpret this result as normal/abnormal . [facility] CenterYjdcgtjLNYTMQHEJK5979-18-49 10:24:00 Test Item Value Reference Range Interpretation Comments Segs (test code = Segs) 70.6 45.0-75.0 [place] 222910-12-07 10:24:00 Test Item Value Reference Range Interpretation Comments Neutrophils # (test code = Neutrophils 5.3 1.5-8.1 #) [facility] CenterNwsejlwLLGELOONKY7858-66-98 10:24:00 Test Item Value Reference Range Interpretation Comments Lymphocytes # (test code = Lymphocytes 1.0 1.0-5.5 #) [facility] CenterBnvsnaiHGEOYAYBLP9496-48-49 10:24:00 Test Item Value Reference Range Interpretation Comments Monocytes # (test code 0.8 See_Comment [Aut omated message] The = Monocytes #) system which generated this result tra nsmitted reference range : <=0.8. The reference r christiano was not used to int erpret this result as normal/abnormal . [facility] CenterWwajdzcFSTZEBUPSY8162-07-97 10:24:00 Test Item Value Reference Range Interpretation Comments Eosinophils # (test code 0.3 See_Comment [A utomated message] The = Eosinophils #) system whic h generated this result tra nsmitted reference range : <=0.5. The reference r christiano was not used to int erpret this result as normal/abnormal . [facility] CenterWzkuewpEQFALCRUBA8324-93-52 10:24:00 Test Item Value Reference Range Interpretation Comments Basophils # (test code 0.1 See_Comment [Aut omated message] The = Basophils #) system which generated this result tra nsmitted reference range : <=0.2. The reference r christiano was not used to int erpret this result as normal/abnormal . [facility] CenterZbfsoxrZZFDWTYPSP2381-78-94 10:24:00 Test Item Value Reference Range Interpretation Comments WBC (test code = WBC) 7.5 3.7-10.4 [place] 222910-12-07 10:24:00 Test Item Value Reference Range Interpretation Comments RBC (test code = RBC) 3.85 4.20-5.40 [facility] CenterHnxqgjmYJWGYFXJUL8042-96-89 10:24:00 Test Item Value Reference Range Interpretation Comments Hgb (test code = Hgb) 10.6 12.0-16.0 [facility] CenterIaxdpgmZTIZUVJHAS6387-80-66 10:24:00 Test Item Value Reference Range Interpretation Comments Hct (test code = Hct) 32.1 36.0-48.0 [place] 222910-12-07 10:24:00 Test Item Value Reference Range Interpretation Comments MCV (test code = MCV) 83.5 80.0-98.0 [place] 222910-12-07 10:24:00 Test Item Value Reference Range Interpretation Comments Lymphocytes (test code = Lymphocytes) 13.2 20.0-40.0 [place] [address]-12-07 10:24:00 Test Item Value Reference Range Interpretation Comments MCH (test code = MCH) 27.7 pg 27.0-31.0 [facility] CenterGysfrvnBMSPMITYFI8064-32-19 10:24:00 Test Item Value Reference Range Interpretation Comments MCHC (test code = MCHC) 33.1 32.0-36.0 [facility] CenterXyynwtkDRNBOSVWGD3080-81-40 10:24:00 Test Item Value Reference Range Interpretation Comments RDW (test code = RDW) 16.8 11.5-14.5 [facility] CenterZrniemuDPLJAPPLTN3982-39-24 10:24:00 Test Item Value Reference Range Interpretation Comments Platelet (test code = Platelet) 185 133-450 [facility] CenterCgwoyxnYUANZWAAKM6370-71-51 10:24:00 Test Item Value Reference Range Interpretation Comments MPV (test code = MPV) 8.4 7.4-10.4 [facility] CenterZtulmnzZZZTIPYNKG3903-23-18 10:24:00 Test Item Value Reference Range Interpretation Comments Monocytes (test code = Monocytes) 10.9 2.0-12.0 [facility] CenterFmgkwsfGSKVGZATBJ3290-25-86 10:24:00 Test Item Value Reference Range Interpretation Comments Eosinophils (test code = 4.6 See_Comment [A utomated message] The Eosinophils) system which ge nerated this result tra nsmitted reference range : <=4.0. The reference r christiano was not used to int erpret this result as normal/abnormal . [facility] CenterCtkoessMQUERARSDK1080-82-86 10:24:00 Test Item Value Reference Range Interpretation Comments Basophils (test code = 0.7 See_Comment [Aut omated message] The Basophils) system which ge nerated this result tra nsmitted reference range : <=1.0. The reference r christiano was not used to int erpret this result as normal/abnormal . [facility] CenterBabclocLBKXJBCKUY1005-68-31 10:24:00 Test Item Value Reference Range Interpretation Comments Neutrophils # (test code = Neutrophils 5.3 1.5-8.1 #) [facility] CenterCbggjveGXGXCMVCUM2290-21-94 10:24:00 Test Item Value Reference Range Interpretation Comments Lymphocytes # (test code = Lymphocytes 1.0 1.0-5.5 #) [facility] CenterIcnvsseJQZOFEOGMO9956-18-06 10:24:00 Test Item Value Reference Range Interpretation Comments Monocytes # (test code 0.8 See_Comment [Aut omated message] The = Monocytes #) system which generated this result tra nsmitted reference range : <=0.8. The reference r christiano was not used to int erpret this result as normal/abnormal . [facility] CenterVtffsciYCTMONWTLJ8098-81-01 10:24:00 Test Item Value Reference Range Interpretation Comments Eosinophils # (test code 0.3 See_Comment [A utomated message] The = Eosinophils #) system whic h generated this result tra nsmitted reference range : <=0.5. The reference r christiano was not used to int erpret this result as normal/abnormal . [facility] CenterRrbiddkWHVHCZFXNX0469-22-23 10:24:00 Test Item Value Reference Range Interpretation Comments Basophils # (test code 0.1 See_Comment [Aut omated message] The = Basophils #) system which generated this result tra nsmitted reference range : <=0.2. The reference r christiano was not used to int erpret this result as normal/abnormal . [facility] CenterRtdlsyjLKUKBXAHLB8300-47-00 10:24:00 Test Item Value Reference Range Interpretation Comments WBC (test code = WBC) 7.5 3.7-10.4 [facility] CenterLzktlhdGRZFUKZCUM1580-90-32 10:24:00 Test Item Value Reference Range Interpretation Comments RBC (test code = RBC) 3.85 4.20-5.40 [facility] CenterGrakiqaEMJGYMLGQR7867-67-76 10:24:00 Test Item Value Reference Range Interpretation Comments Hgb (test code = Hgb) 10.6 12.0-16.0 [facility] CenterCmcqztdFBTFALXSPI3862-61-40 10:24:00 Test Item Value Reference Range Interpretation Comments Hct (test code = Hct) 32.1 36.0-48.0 [facility] CenterSesjhayWLXVOLDYAK5936-03-96 10:24:00 Test Item Value Reference Range Interpretation Comments MCV (test code = MCV) 83.5 80.0-98.0 [place] 222910-12-07 10:24:00 Test Item Value Reference Range Interpretation Comments MCH (test code = MCH) 27.7 pg 27.0-31.0 [facility] CenterZwkaaifKKZCERIYXW5648-94-40 10:24:00 Test Item Value Reference Range Interpretation Comments MCHC (test code = MCHC) 33.1 32.0-36.0 [facility] CenterLsublgoSJNDQGSOMM1522-06-92 10:24:00 Test Item Value Reference Range Interpretation Comments RDW (test code = RDW) 16.8 11.5-14.5 [place] 222910-12-07 10:24:00 Test Item Value Reference Range Interpretation Comments Platelet (test code = Platelet) 185 133-450 [facility] CenterUlxqtkqJRZQPCOFJJ0425-64-30 10:24:00 Test Item Value Reference Range Interpretation Comments MPV (test code = MPV) 8.4 7.4-10.4 [place] 678380-12-07 10:24:00 Test Item Value Reference Range Interpretation Comments Glucose Lvl (test code = Glucose Lvl) 66 70-99 [place] [address]-12-07 10:24:00 Test Item Value Reference Range Interpretation Comments BUN (test code = BUN) 19 7-22 [place] 678380-12-07 10:24:00 Test Item Value Reference Range Interpretation Comments Creatinine Lvl (test code = Creatinine 1.82 0.50-1.40 Lvl) [place] 678380-12-07 10:24:00 Test Item Value Reference Range Interpretation Comments Sodium Lvl (test code = Sodium Lvl) 139 135-145 [place] 678380-12-07 10:24:00 Test Item Value Reference Range Interpretation Comments Potassium Lvl (test code = Potassium 4.2 3.5-5.1 Lvl) [facility]2020-12-07 10:24:00 Test Item Value Reference Range Interpretation Comments Chloride Lvl (test code = Chloride Lvl) 105 95-109 [facility]2020-12-07 10:24:00 Test Item Value Reference Range Interpretation Comments CO2 (test code = CO2) 28 24-32 [place] 678380-12-07 10:24:00 Test Item Value Reference Range Interpretation Comments Calcium Lvl (test code = Calcium Lvl) 8.2 8.5-10.5 [place] 678380-12-07 10:24:00 Test Item Value Reference Range Interpretation Comments AGAP (test code = AGAP) 10.2 10.0-20.0 [place] 678380-12-07 10:24:00 Test Item Value Reference Range Interpretation Comments eGFR (test code = eGFR) 26 [place] 222910-12-07 10:24:00 Test Item Value Reference Range Interpretation Comments Segs (test code = Segs) 70.6 45.0-75.0 [facility] CenterObhwkpgQYMHGYPAIZ7617-19-89 10:24:00 Test Item Value Reference Range Interpretation Comments Lymphocytes (test code = Lymphocytes) 13.2 20.0-40.0 [facility] CenterSfrksigKYVDHPJFVE1449-18-48 10:24:00 Test Item Value Reference Range Interpretation Comments Monocytes (test code = Monocytes) 10.9 2.0-12.0 [facility] CenterSshzsozPLBZUMGQPU9855-96-84 10:24:00 Test Item Value Reference Range Interpretation Comments Eosinophils (test code = 4.6 See_Comment [A utomated message] The Eosinophils) system which ge nerated this result tra nsmitted reference range : <=4.0. The reference r christiano was not used to int erpret this result as normal/abnormal . [facility] CenterCtvtjgaMKQZVDUOJM3628-19-56 10:24:00 Test Item Value Reference Range Interpretation Comments Basophils (test code = 0.7 See_Comment [Aut omated message] The Basophils) system which ge nerated this result tra nsmitted reference range : <=1.0. The reference r christiano was not used to int erpret this result as normal/abnormal . [facility] CenterLpidtbnPHCQOWQWQV2390-26-48 10:24:00 Test Item Value Reference Range Interpretation Comments Neutrophils # (test code = Neutrophils 5.3 1.5-8.1 #) [facility] CenterMpjzwnnGELMLOALAU7863-82-46 10:24:00 Test Item Value Reference Range Interpretation Comments Lymphocytes # (test code = Lymphocytes 1.0 1.0-5.5 #) [facility] CenterIbcuqcqOJDFIGPUSZ0802-81-22 10:24:00 Test Item Value Reference Range Interpretation Comments Monocytes # (test code 0.8 See_Comment [Aut omated message] The = Monocytes #) system which generated this result tra nsmitted reference range : <=0.8. The reference r christiano was not used to int erpret this result as normal/abnormal . [facility] CenterYpayxbvSNMPCVQWXB6325-08-73 10:24:00 Test Item Value Reference Range Interpretation Comments Eosinophils # (test code 0.3 See_Comment [A utomated message] The = Eosinophils #) system ic h generated this result tra nsmitted reference range : <=0.5. The reference r christiano was not used to int erpret this result as normal/abnormal . [facility] CenterEgfmbufBTROICOASI2672-70-68 10:24:00 Test Item Value Reference Range Interpretation Comments Basophils # (test code 0.1 See_Comment [Aut omated message] The = Basophils #) system which generated this result tra nsmitted reference range : <=0.2. The reference r christiano was not used to int erpret this result as normal/abnormal . [facility] CenterBgxdszuBQUNUXSLNK4970-71-99 10:24:00 Test Item Value Reference Range Interpretation Comments WBC (test code = WBC) 7.5 3.7-10.4 [facility] GladwinFrbwujnUETGSDUGHH0026-72-35 10:24:00 Test Item Value Reference Range Interpretation Comments RBC (test code = RBC) 3.85 4.20-5.40 [facility] GladwinYutotxkHTGOLNLUMH2458-25-63 10:24:00 Test Item Value Reference Range Interpretation Comments Hgb (test code = Hgb) 10.6 12.0-16.0 [facility] CenterMrbagohEMGLNHNJJP9347-65-17 10:24:00 Test Item Value Reference Range Interpretation Comments Hct (test code = Hct) 32.1 36.0-48.0 [facility] CenterPrnbqgtCKIWEBZZZX0835-61-93 10:24:00 Test Item Value Reference Range Interpretation Comments MCV (test code = MCV) 83.5 80.0-98.0 [facility] GladwinQjlpzbsQFIDIITTSS1426-32-50 10:24:00 Test Item Value Reference Range Interpretation Comments MCH (test code = MCH) 27.7 pg 27.0-31.0 [facility] CenterOgfdshmNMKLGLVMZE2826-23-60 10:24:00 Test Item Value Reference Range Interpretation Comments MCHC (test code = MCHC) 33.1 32.0-36.0 [facility] CenterIfctnczMNFJOVKIAJ0860-07-69 10:24:00 Test Item Value Reference Range Interpretation Comments RDW (test code = RDW) 16.8 11.5-14.5 [facility] GladwinTlwdbgsVFKOZNSKVQ5599-63-34 10:24:00 Test Item Value Reference Range Interpretation Comments Platelet (test code = Platelet) 185 133-450 [facility] GladwinMxgdvqwGDZXHNATIF3097-96-88 10:24:00 Test Item Value Reference Range Interpretation Comments MPV (test code = MPV) 8.4 7.4-10.4 [facility]2020-12-07 10:24:00 Test Item Value Reference Range Interpretation Comments Glucose Lvl (test code = Glucose Lvl) 66 70-99 [facility]2020-12-07 10:24:00 Test Item Value Reference Range Interpretation Comments BUN (test code = BUN) 19 7-22 [facility]2020-12-07 10:24:00 Test Item Value Reference Range Interpretation Comments Creatinine Lvl (test code = Creatinine 1.82 0.50-1.40 Lvl) [facility]2020-12-07 10:24:00 Test Item Value Reference Range Interpretation Comments Sodium Lvl (test code = Sodium Lvl) 139 135-145 [facility]2020-12-07 10:24:00 Test Item Value Reference Range Interpretation Comments Potassium Lvl (test code = Potassium 4.2 3.5-5.1 Lvl) [facility]2020-12-07 10:24:00 Test Item Value Reference Range Interpretation Comments Chloride Lvl (test code = Chloride Lvl) 105 95-109 [facility]2020-12-07 10:24:00 Test Item Value Reference Range Interpretation Comments CO2 (test code = CO2) 28 24-32 [facility]2020-12-07 10:24:00 Test Item Value Reference Range Interpretation Comments Calcium Lvl (test code = Calcium Lvl) 8.2 8.5-10.5 [facility]2020-12-07 10:24:00 Test Item Value Reference Range Interpretation Comments AGAP (test code = AGAP) 10.2 10.0-20.0 [facility]2020-12-07 10:24:00 Test Item Value Reference Range Interpretation Comments eGFR (test code = eGFR) 26 [facility] CenterQrvuqarGCEPMUOVMB3505-23-13 10:24:00 Test Item Value Reference Range Interpretation Comments Segs (test code = Segs) 70.6 45.0-75.0 [place] 222910-12-07 10:24:00 Test Item Value Reference Range Interpretation Comments Lymphocytes (test code = Lymphocytes) 13.2 20.0-40.0 [place] 222910-12-07 10:24:00 Test Item Value Reference Range Interpretation Comments Monocytes (test code = Monocytes) 10.9 2.0-12.0 [place] [address]-12-07 10:24:00 Test Item Value Reference Range Interpretation Comments Eosinophils (test code = 4.6 See_Comment [A utomated message] The Eosinophils) system which ge nerated this result tra nsmitted reference range : <=4.0. The reference r christiano was not used to int erpret this result as normal/abnormal . [facility] CenterOkyujmaLLSBYMGAHL5337-23-71 10:24:00 Test Item Value Reference Range Interpretation Comments Basophils (test code = 0.7 See_Comment [Aut omated message] The Basophils) system which ge nerated this result tra nsmitted reference range : <=1.0. The reference r christiano was not used to int erpret this result as normal/abnormal . [facility] CenterKyyxjtaZLYNGWRHZJ6361-53-55 10:24:00 Test Item Value Reference Range Interpretation Comments Neutrophils # (test code = Neutrophils 5.3 1.5-8.1 #) [facility] CenterLwwmqxeBXOWUFPCDB0839-94-81 10:24:00 Test Item Value Reference Range Interpretation Comments Lymphocytes # (test code = Lymphocytes 1.0 1.0-5.5 #) [facility] CenterXsgwzigNTFMIJCONA1801-70-90 10:24:00 Test Item Value Reference Range Interpretation Comments Monocytes # (test code 0.8 See_Comment [Aut omated message] The = Monocytes #) system which generated this result tra nsmitted reference range : <=0.8. The reference r christiano was not used to int erpret this result as normal/abnormal . [facility] CenterIyvmaqmPHUNUMDUXA3356-55-84 10:24:00 Test Item Value Reference Range Interpretation Comments Eosinophils # (test code 0.3 See_Comment [A utomated message] The = Eosinophils #) system whic h generated this result tra nsmitted reference range : <=0.5. The reference r christiano was not used to int erpret this result as normal/abnormal . [facility] CenterBqygpsnADQTCSOQID4194-39-71 10:24:00 Test Item Value Reference Range Interpretation Comments Basophils # (test code 0.1 See_Comment [Aut omated message] The = Basophils #) system which generated this result tra nsmitted reference range : <=0.2. The reference r christiano was not used to int erpret this result as normal/abnormal . [facility] CenterAyxqiqmMPHCTTRZDE6071-46-61 10:24:00 Test Item Value Reference Range Interpretation Comments WBC (test code = WBC) 7.5 3.7-10.4 [facility] CenterVkhgfylCGRXCPKBSF1336-24-40 10:24:00 Test Item Value Reference Range Interpretation Comments RBC (test code = RBC) 3.85 4.20-5.40 [facility] CenterNqtflwuTZIIAMMQFS4369-37-72 10:24:00 Test Item Value Reference Range Interpretation Comments Hgb (test code = Hgb) 10.6 12.0-16.0 [facility] CenterGedsawsEDNNPLRKFV0986-06-96 10:24:00 Test Item Value Reference Range Interpretation Comments Hct (test code = Hct) 32.1 36.0-48.0 [facility] CenterDwcxabqHWASTLXCKC9927-66-20 10:24:00 Test Item Value Reference Range Interpretation Comments MCV (test code = MCV) 83.5 80.0-98.0 [facility] CenterXimghndWUKNJTCZPS0196-49-90 10:24:00 Test Item Value Reference Range Interpretation Comments MCH (test code = MCH) 27.7 pg 27.0-31.0 [facility] CenterKtllspdDONJBKBVVD1124-44-93 10:24:00 Test Item Value Reference Range Interpretation Comments MCHC (test code = MCHC) 33.1 32.0-36.0 [facility] CenterNoabjyfZSSOLPSYZZ7882-82-93 10:24:00 Test Item Value Reference Range Interpretation Comments RDW (test code = RDW) 16.8 11.5-14.5 [facility] CenterTfprfwiHEGSYHAZWK8658-64-49 10:24:00 Test Item Value Reference Range Interpretation Comments Platelet (test code = Platelet) 185 133-450 [facility] CenterBoashirMWZAPLCGLE1319-90-68 10:24:00 Test Item Value Reference Range Interpretation Comments MPV (test code = MPV) 8.4 7.4-10.4 [facility]2020-12-07 10:24:00 Test Item Value Reference Range Interpretation Comments Glucose Lvl (test code = Glucose Lvl) 66 70-99 [facility]2020-12-07 10:24:00 Test Item Value Reference Range Interpretation Comments BUN (test code = BUN) 19 7-22 [facility]2020-12-07 10:24:00 Test Item Value Reference Range Interpretation Comments Creatinine Lvl (test code = Creatinine 1.82 0.50-1.40 Lvl) [facility]2020-12-07 10:24:00 Test Item Value Reference Range Interpretation Comments Sodium Lvl (test code = Sodium Lvl) 139 135-145 [place] 678380-12-07 10:24:00 Test Item Value Reference Range Interpretation Comments Potassium Lvl (test code = Potassium 4.2 3.5-5.1 Lvl) [facility]2020-12-07 10:24:00 Test Item Value Reference Range Interpretation Comments Chloride Lvl (test code = Chloride Lvl) 105 95-109 [place] 678380-12-07 10:24:00 Test Item Value Reference Range Interpretation Comments CO2 (test code = CO2) 28 24-32 [place] 678380-12-07 10:24:00 Test Item Value Reference Range Interpretation Comments Calcium Lvl (test code = Calcium Lvl) 8.2 8.5-10.5 [place] 678380-12-07 10:24:00 Test Item Value Reference Range Interpretation Comments AGAP (test code = AGAP) 10.2 10.0-20.0 [facility]2020-12-07 10:24:00 Test Item Value Reference Range Interpretation Comments eGFR (test code = eGFR) 26 [facility] CenterZtpvpghLRKXQGXQZW0320-07-69 10:24:00 Test Item Value Reference Range Interpretation Comments Segs (test code = Segs) 70.6 45.0-75.0 [facility] CenterCisfpvaWPAAGWLBHP2733-80-75 10:24:00 Test Item Value Reference Range Interpretation Comments Lymphocytes (test code = Lymphocytes) 13.2 20.0-40.0 [place] 222910-12-07 10:24:00 Test Item Value Reference Range Interpretation Comments Monocytes (test code = Monocytes) 10.9 2.0-12.0 [place] [address]-12-07 10:24:00 Test Item Value Reference Range Interpretation Comments Eosinophils (test code = 4.6 See_Comment [A utomated message] The Eosinophils) system which ge nerated this result tra nsmitted reference range : <=4.0. The reference r christiano was not used to int erpret this result as normal/abnormal . [facility]JgfhqmkACRHOIKAKN5836-80-27 10:24:00 Test Item Value Reference Range Interpretation Comments Basophils (test code = 0.7 See_Comment [Aut omated message] The Basophils) system which ge nerated this result tra nsmitted reference range : <=1.0. The reference r christiano was not used to int erpret this result as normal/abnormal . [facility] CenterEobrmztKERLALOCOW7308-34-75 10:24:00 Test Item Value Reference Range Interpretation Comments Neutrophils # (test code = Neutrophils 5.3 1.5-8.1 #) [facility] CenterQoiffavGKGJDHNANK3387-66-52 10:24:00 Test Item Value Reference Range Interpretation Comments Lymphocytes # (test code = Lymphocytes 1.0 1.0-5.5 #) [facility] CenterLenmclrYIZYMUXUGK1593-21-53 10:24:00 Test Item Value Reference Range Interpretation Comments Monocytes # (test code 0.8 See_Comment [Aut omated message] The = Monocytes #) system which generated this result tra nsmitted reference range : <=0.8. The reference r christiano was not used to int erpret this result as normal/abnormal . [facility] CenterYvpaqzqMVFURNBDHN2546-32-29 10:24:00 Test Item Value Reference Range Interpretation Comments Eosinophils # (test code 0.3 See_Comment [A utomated message] The = Eosinophils #) system whic h generated this result tra nsmitted reference range : <=0.5. The reference r christiano was not used to int erpret this result as normal/abnormal . [facility] CenterMwjkdmqAPPCNYIRCL1335-72-80 10:24:00 Test Item Value Reference Range Interpretation Comments Basophils # (test code 0.1 See_Comment [Aut omated message] The = Basophils #) system which generated this result tra nsmitted reference range : <=0.2. The reference r christiano was not used to int erpret this result as normal/abnormal . [facility] CenterJttujfsJRPDBTDXGI3250-03-92 10:24:00 Test Item Value Reference Range Interpretation Comments WBC (test code = WBC) 7.5 3.7-10.4 [facility] CenterMyjbtkiHUJHSRVQIL8994-07-39 10:24:00 Test Item Value Reference Range Interpretation Comments RBC (test code = RBC) 3.85 4.20-5.40 [facility] CenterFivjgryZVOYQIYYTS9402-01-19 10:24:00 Test Item Value Reference Range Interpretation Comments Hgb (test code = Hgb) 10.6 12.0-16.0 [facility] CenterMlgzjsfDNUURJOWLS5839-86-43 10:24:00 Test Item Value Reference Range Interpretation Comments Hct (test code = Hct) 32.1 36.0-48.0 [place] 222910-12-07 10:24:00 Test Item Value Reference Range Interpretation Comments MCV (test code = MCV) 83.5 80.0-98.0 [place] [address]-12-07 10:24:00 Test Item Value Reference Range Interpretation Comments MCH (test code = MCH) 27.7 pg 27.0-31.0 [place] [address]-12-07 10:24:00 Test Item Value Reference Range Interpretation Comments MCHC (test code = MCHC) 33.1 32.0-36.0 [facility] CenterLaegljrRITBUMBXXT3286-76-07 10:24:00 Test Item Value Reference Range Interpretation Comments RDW (test code = RDW) 16.8 11.5-14.5 [place] 222910-12-07 10:24:00 Test Item Value Reference Range Interpretation Comments Platelet (test code = Platelet) 185 133-450 [facility] CenterTsmvxocDUAPPLQJBH7885-31-98 10:24:00 Test Item Value Reference Range Interpretation Comments MPV (test code = MPV) 8.4 7.4-10.4 [facility]2020-12-07 10:24:00 Test Item Value Reference Range Interpretation Comments Glucose Lvl (test code = Glucose Lvl) 66 70-99 [facility]2020-12-07 10:24:00 Test Item Value Reference Range Interpretation Comments BUN (test code = BUN) 19 7-22 [facility]2020-12-07 10:24:00 Test Item Value Reference Range Interpretation Comments Creatinine Lvl (test code = Creatinine 1.82 0.50-1.40 Lvl) [facility]2020-12-07 10:24:00 Test Item Value Reference Range Interpretation Comments Sodium Lvl (test code = Sodium Lvl) 139 135-145 [facility]2020-12-07 10:24:00 Test Item Value Reference Range Interpretation Comments Potassium Lvl (test code = Potassium 4.2 3.5-5.1 Lvl) [place] 678380-12-07 10:24:00 Test Item Value Reference Range Interpretation Comments Chloride Lvl (test code = Chloride Lvl) 105 95-109 [place] 678380-12-07 10:24:00 Test Item Value Reference Range Interpretation Comments CO2 (test code = CO2) 28 24-32 [place] 678380-12-07 10:24:00 Test Item Value Reference Range Interpretation Comments Calcium Lvl (test code = Calcium Lvl) 8.2 8.5-10.5 [place] 678380-12-07 10:24:00 Test Item Value Reference Range Interpretation Comments AGAP (test code = AGAP) 10.2 10.0-20.0 [place] 678380-12-07 10:24:00 Test Item Value Reference Range Interpretation Comments eGFR (test code = eGFR) 26 [place] 222910-12-07 10:24:00 Test Item Value Reference Range Interpretation Comments Segs (test code = Segs) 70.6 45.0-75.0 [place] 222910-12-07 10:24:00 Test Item Value Reference Range Interpretation Comments Lymphocytes (test code = Lymphocytes) 13.2 20.0-40.0 [place] 222910-12-07 10:24:00 Test Item Value Reference Range Interpretation Comments Monocytes (test code = Monocytes) 10.9 2.0-12.0 [place] 222910-12-07 10:24:00 Test Item Value Reference Range Interpretation Comments Eosinophils (test code = 4.6 See_Comment [A utomated message] The Eosinophils) system which ge nerated this result tra nsmitted reference range : <=4.0. The reference r christiano was not used to int erpret this result as normal/abnormal . [place] 222910-12-07 10:24:00 Test Item Value Reference Range Interpretation Comments Basophils (test code = 0.7 See_Comment [Aut omated message] The Basophils) system which ge nerated this result tra nsmitted reference range : <=1.0. The reference r christiano was not used to int erpret this result as normal/abnormal . [place] 222910-12-07 10:24:00 Test Item Value Reference Range Interpretation Comments Neutrophils # (test code = Neutrophils 5.3 1.5-8.1 #) [facility] CenterDrabmyaQMOSVPAVLO8768-93-75 10:24:00 Test Item Value Reference Range Interpretation Comments Lymphocytes # (test code = Lymphocytes 1.0 1.0-5.5 #) [facility] CenterIjrwliiNDEHSBHCUZ7131-18-99 10:24:00 Test Item Value Reference Range Interpretation Comments Monocytes # (test code 0.8 See_Comment [Aut omated message] The = Monocytes #) system which generated this result tra nsmitted reference range : <=0.8. The reference r christiano was not used to int erpret this result as normal/abnormal . [facility] CenterVfmrbnwZQAYFCYYWW7378-72-82 10:24:00 Test Item Value Reference Range Interpretation Comments Eosinophils # (test code 0.3 See_Comment [A utomated message] The = Eosinophils #) system whic h generated this result tra nsmitted reference range : <=0.5. The reference r christiano was not used to int erpret this result as normal/abnormal . [facility] CenterTbgdgzqZXPHCGSEFT9964-68-41 10:24:00 Test Item Value Reference Range Interpretation Comments Basophils # (test code 0.1 See_Comment [Aut omated message] The = Basophils #) system which generated this result tra nsmitted reference range : <=0.2. The reference r christiano was not used to int erpret this result as normal/abnormal . [facility] CenterIesibxkUYBNAUMYWX5959-73-52 10:24:00 Test Item Value Reference Range Interpretation Comments WBC (test code = WBC) 7.5 3.7-10.4 [facility] CenterAbzsitiZWLFVEKANP4213-79-25 10:24:00 Test Item Value Reference Range Interpretation Comments RBC (test code = RBC) 3.85 4.20-5.40 [place] [address]-12-07 10:24:00 Test Item Value Reference Range Interpretation Comments Hgb (test code = Hgb) 10.6 12.0-16.0 [place] [address]-12-07 10:24:00 Test Item Value Reference Range Interpretation Comments Hct (test code = Hct) 32.1 36.0-48.0 [place] [address]-12-07 10:24:00 Test Item Value Reference Range Interpretation Comments MCV (test code = MCV) 83.5 80.0-98.0 [place] [address]-12-07 10:24:00 Test Item Value Reference Range Interpretation Comments MCH (test code = MCH) 27.7 pg 27.0-31.0 [place] [address]-12-07 10:24:00 Test Item Value Reference Range Interpretation Comments MCHC (test code = MCHC) 33.1 32.0-36.0 [place] 222910-12-07 10:24:00 Test Item Value Reference Range Interpretation Comments RDW (test code = RDW) 16.8 11.5-14.5 [place] [address]-12-07 10:24:00 Test Item Value Reference Range Interpretation Comments Platelet (test code = Platelet) 185 133-450 [place] [address]-12-07 10:24:00 Test Item Value Reference Range Interpretation Comments MPV (test code = MPV) 8.4 7.4-10.4 [facility]2020-12-07 10:24:00 Test Item Value Reference Range Interpretation Comments Glucose Lvl (test code = Glucose Lvl) 66 70-99 [facility]2020-12-07 10:24:00 Test Item Value Reference Range Interpretation Comments BUN (test code = BUN) 19 7-22 [facility]2020-12-07 10:24:00 Test Item Value Reference Range Interpretation Comments Creatinine Lvl (test code = Creatinine 1.82 0.50-1.40 Lvl) [facility]2020-12-07 10:24:00 Test Item Value Reference Range Interpretation Comments Sodium Lvl (test code = Sodium Lvl) 139 135-145 [place] 678380-12-07 10:24:00 Test Item Value Reference Range Interpretation Comments Potassium Lvl (test code = Potassium 4.2 3.5-5.1 Lvl) [place] 678380-12-07 10:24:00 Test Item Value Reference Range Interpretation Comments Chloride Lvl (test code = Chloride Lvl) 105 95-109 [place] 678380-12-07 10:24:00 Test Item Value Reference Range Interpretation Comments CO2 (test code = CO2) 28 24-32 [place] 678380-12-07 10:24:00 Test Item Value Reference Range Interpretation Comments Calcium Lvl (test code = Calcium Lvl) 8.2 8.5-10.5 [facility]2020-12-07 10:24:00 Test Item Value Reference Range Interpretation Comments AGAP (test code = AGAP) 10.2 10.0-20.0 [facility]2020-12-07 10:24:00 Test Item Value Reference Range Interpretation Comments eGFR (test code = eGFR) 26 [facility] CenterXwfqxsaNUCIAHCHVR8331-89-02 10:24:00 Test Item Value Reference Range Interpretation Comments Segs (test code = Segs) 70.6 45.0-75.0 [facility] CenterKpsadvwMYUCJTTWTV2308-57-94 10:24:00 Test Item Value Reference Range Interpretation Comments Lymphocytes (test code = Lymphocytes) 13.2 20.0-40.0 [place] 222910-12-07 10:24:00 Test Item Value Reference Range Interpretation Comments Monocytes (test code = Monocytes) 10.9 2.0-12.0 [facility] CenterRiudpokVMKBLSXPUH9702-41-77 10:24:00 Test Item Value Reference Range Interpretation Comments Eosinophils (test code = 4.6 See_Comment [A utomated message] The Eosinophils) system which ge nerated this result tra nsmitted reference range : <=4.0. The reference r christiano was not used to int erpret this result as normal/abnormal . [facility] CenterNlgotsdHJCMBWVBLM7436-33-35 10:24:00 Test Item Value Reference Range Interpretation Comments Basophils (test code = 0.7 See_Comment [Aut omated message] The Basophils) system which ge nerated this result tra nsmitted reference range : <=1.0. The reference r christiano was not used to int erpret this result as normal/abnormal . [facility] CenterXjnwoknAEVULENDOX5909-93-64 10:24:00 Test Item Value Reference Range Interpretation Comments Neutrophils # (test code = Neutrophils 5.3 1.5-8.1 #) [place] 222910-12-07 10:24:00 Test Item Value Reference Range Interpretation Comments Lymphocytes # (test code = Lymphocytes 1.0 1.0-5.5 #) [facility] CenterYxtgxenALWACZVYZL9744-75-20 10:24:00 Test Item Value Reference Range Interpretation Comments Monocytes # (test code 0.8 See_Comment [Aut omated message] The = Monocytes #) system which generated this result tra nsmitted reference range : <=0.8. The reference r christiano was not used to int erpret this result as normal/abnormal . [facility] CenterJlajuqbIYEPAWDXTT3039-07-39 10:24:00 Test Item Value Reference Range Interpretation Comments Eosinophils # (test code 0.3 See_Comment [A utomated message] The = Eosinophils #) system whic h generated this result tra nsmitted reference range : <=0.5. The reference r christiano was not used to int erpret this result as normal/abnormal . [facility] CenterIhenzwkQUJXGKBGGW2606-50-32 10:24:00 Test Item Value Reference Range Interpretation Comments Basophils # (test code 0.1 See_Comment [Aut omated message] The = Basophils #) system which generated this result tra nsmitted reference range : <=0.2. The reference r christiano was not used to int erpret this result as normal/abnormal . [facility] CenterJuuyiyrTRPISKHEIM8973-41-07 10:24:00 Test Item Value Reference Range Interpretation Comments WBC (test code = WBC) 7.5 3.7-10.4 [facility] CenterIitorbvPDKUQDLECO5802-47-91 10:24:00 Test Item Value Reference Range Interpretation Comments RBC (test code = RBC) 3.85 4.20-5.40 [facility] CenterYcgwtgfXXTFRKLROL7322-97-72 10:24:00 Test Item Value Reference Range Interpretation Comments Hgb (test code = Hgb) 10.6 12.0-16.0 [facility] CenterZjysryhTUGIGJQOCF5554-58-84 10:24:00 Test Item Value Reference Range Interpretation Comments Hct (test code = Hct) 32.1 36.0-48.0 [facility] CenterAfhkzdpUVYGVGPQJD8142-60-30 10:24:00 Test Item Value Reference Range Interpretation Comments MCV (test code = MCV) 83.5 80.0-98.0 [facility] CenterMbxclzdWCFSTTQOPD8169-13-13 10:24:00 Test Item Value Reference Range Interpretation Comments MCH (test code = MCH) 27.7 pg 27.0-31.0 [place] 222910-12-07 10:24:00 Test Item Value Reference Range Interpretation Comments MCHC (test code = MCHC) 33.1 32.0-36.0 [place] 222910-12-07 10:24:00 Test Item Value Reference Range Interpretation Comments RDW (test code = RDW) 16.8 11.5-14.5 [facility] CenterDrtsulyICROCLSKTB2326-07-70 10:24:00 Test Item Value Reference Range Interpretation Comments Platelet (test code = Platelet) 185 133-450 [facility]2020-12-07 10:24:00 Test Item Value Reference Range Interpretation Comments Glucose Lvl (test code = Glucose Lvl) 66 70-99 [facility]2020-12-07 10:24:00 Test Item Value Reference Range Interpretation Comments BUN (test code = BUN) 19 7-22 [place] 678380-12-07 10:24:00 Test Item Value Reference Range Interpretation Comments Creatinine Lvl (test code = Creatinine 1.82 0.50-1.40 Lvl) [facility]2020-12-07 10:24:00 Test Item Value Reference Range Interpretation Comments Sodium Lvl (test code = Sodium Lvl) 139 135-145 [facility]2020-12-07 10:24:00 Test Item Value Reference Range Interpretation Comments Potassium Lvl (test code = Potassium 4.2 3.5-5.1 Lvl) [facility]2020-12-07 10:24:00 Test Item Value Reference Range Interpretation Comments Chloride Lvl (test code = Chloride Lvl) 105 95-109 [facility] CenterWevhtljGZTDEDIACR0845-16-61 10:24:00 Test Item Value Reference Range Interpretation Comments MPV (test code = MPV) 8.4 7.4-10.4 [facility]2020-12-07 10:24:00 Test Item Value Reference Range Interpretation Comments CO2 (test code = CO2) 28 24-32 [facility]2020-12-07 10:24:00 Test Item Value Reference Range Interpretation Comments Calcium Lvl (test code = Calcium Lvl) 8.2 8.5-10.5 [facility]2020-12-07 10:24:00 Test Item Value Reference Range Interpretation Comments AGAP (test code = AGAP) 10.2 10.0-20.0 [facility]2020-12-07 10:24:00 Test Item Value Reference Range Interpretation Comments eGFR (test code = eGFR) 26 [place] [address]-12-07 10:24:00 Test Item Value Reference Range Interpretation Comments Segs (test code = Segs) 70.6 45.0-75.0 [facility] CenterGmzngctVSAVQIQJVY8263-88-60 10:24:00 Test Item Value Reference Range Interpretation Comments Lymphocytes (test code = Lymphocytes) 13.2 20.0-40.0 [facility] CenterBabytakEUERWCDJXL0417-88-15 10:24:00 Test Item Value Reference Range Interpretation Comments Monocytes (test code = Monocytes) 10.9 2.0-12.0 [facility] CenterYtfmdvhJVXEENBKXC7898-77-52 10:24:00 Test Item Value Reference Range Interpretation Comments Eosinophils (test code = 4.6 See_Comment [A utomated message] The Eosinophils) system which ge nerated this result tra nsmitted reference range : <=4.0. The reference r christiano was not used to int erpret this result as normal/abnormal . [facility] CenterCpjbkayOEAFBRIDXI4621-47-78 10:24:00 Test Item Value Reference Range Interpretation Comments Basophils (test code = 0.7 See_Comment [Aut omated message] The Basophils) system which ge nerated this result tra nsmitted reference range : <=1.0. The reference r christiano was not used to int erpret this result as normal/abnormal . [facility] CenterTiblmbtJMJCOWCWUU2078-20-45 10:24:00 Test Item Value Reference Range Interpretation Comments Neutrophils # (test code = Neutrophils 5.3 1.5-8.1 #) [facility] CenterHutvkmvHVRKUGADZC3896-83-98 10:24:00 Test Item Value Reference Range Interpretation Comments Lymphocytes # (test code = Lymphocytes 1.0 1.0-5.5 #) [facility] CenterGuuwjogVXHLCXCKTC9205-61-50 10:24:00 Test Item Value Reference Range Interpretation Comments Monocytes # (test code 0.8 See_Comment [Aut omated message] The = Monocytes #) system which generated this result tra nsmitted reference range : <=0.8. The reference r christiano was not used to int erpret this result as normal/abnormal . [place] 222910-12-07 10:24:00 Test Item Value Reference Range Interpretation Comments Eosinophils # (test code 0.3 See_Comment [A utomated message] The = Eosinophils #) system whic h generated this result tra nsmitted reference range : <=0.5. The reference r christiano was not used to int erpret this result as normal/abnormal . [facility] CenterTblxbjjNGGMOFCCID5945-96-12 10:24:00 Test Item Value Reference Range Interpretation Comments Basophils # (test code 0.1 See_Comment [Aut omated message] The = Basophils #) system which generated this result tra nsmitted reference range : <=0.2. The reference r christiano was not used to int erpret this result as normal/abnormal . [facility] CenterGwakoqoRWVRZUEDOX4034-59-86 10:24:00 Test Item Value Reference Range Interpretation Comments WBC (test code = WBC) 7.5 3.7-10.4 [facility] CenterGzxmsemYZDYAESZBR2337-77-68 10:24:00 Test Item Value Reference Range Interpretation Comments RBC (test code = RBC) 3.85 4.20-5.40 [facility] CenterAnuawhmVLPAIUKUQV4208-72-78 10:24:00 Test Item Value Reference Range Interpretation Comments Hgb (test code = Hgb) 10.6 12.0-16.0 [facility] CenterAxatmsuYUMUFEUKVI6109-25-99 10:24:00 Test Item Value Reference Range Interpretation Comments Hct (test code = Hct) 32.1 36.0-48.0 [facility] CenterCymtfelLTIURXQQBC6098-10-99 10:24:00 Test Item Value Reference Range Interpretation Comments MCV (test code = MCV) 83.5 80.0-98.0 [facility] CenterJvicsxuNPKDKPZJAS4491-62-90 10:24:00 Test Item Value Reference Range Interpretation Comments MCH (test code = MCH) 27.7 pg 27.0-31.0 [facility] CenterBhrdlvjBTAGJUMNTD0751-73-56 10:24:00 Test Item Value Reference Range Interpretation Comments MCHC (test code = MCHC) 33.1 32.0-36.0 [facility] CenterOosbbplJTNLJBKTGB4782-44-67 10:24:00 Test Item Value Reference Range Interpretation Comments RDW (test code = RDW) 16.8 11.5-14.5 [facility] CenterWbiqxkrAINHDQXBNP6504-21-25 10:24:00 Test Item Value Reference Range Interpretation Comments Platelet (test code = Platelet) 185 133-450 [facility] CenterRdnkbcdGJTVOVDFFT5948-85-63 10:24:00 Test Item Value Reference Range Interpretation Comments MPV (test code = MPV) 8.4 7.4-10.4 [facility]2020-12-07 10:24:00 Test Item Value Reference Range Interpretation Comments Glucose Lvl (test code = Glucose Lvl) 66 70-99 [facility]2020-12-07 10:24:00 Test Item Value Reference Range Interpretation Comments BUN (test code = BUN) 19 7-22 [place] 678380-12-07 10:24:00 Test Item Value Reference Range Interpretation Comments Creatinine Lvl (test code = Creatinine 1.82 0.50-1.40 Lvl) [facility]2020-12-07 10:24:00 Test Item Value Reference Range Interpretation Comments Sodium Lvl (test code = Sodium Lvl) 139 135-145 [facility]2020-12-07 10:24:00 Test Item Value Reference Range Interpretation Comments Potassium Lvl (test code = Potassium 4.2 3.5-5.1 Lvl) [facility]2020-12-07 10:24:00 Test Item Value Reference Range Interpretation Comments Chloride Lvl (test code = Chloride Lvl) 105 95-109 [facility]2020-12-07 10:24:00 Test Item Value Reference Range Interpretation Comments CO2 (test code = CO2) 28 24-32 [facility]2020-12-07 10:24:00 Test Item Value Reference Range Interpretation Comments Calcium Lvl (test code = Calcium Lvl) 8.2 8.5-10.5 [facility]2020-12-07 10:24:00 Test Item Value Reference Range Interpretation Comments AGAP (test code = AGAP) 10.2 10.0-20.0 [facility]2020-12-07 10:24:00 Test Item Value Reference Range Interpretation Comments eGFR (test code = eGFR) 26 [facility] CenterLieuevtEQZFFYVIEO0459-71-72 10:24:00 Test Item Value Reference Range Interpretation Comments Segs (test code = Segs) 70.6 45.0-75.0 [place] 222910-12-07 10:24:00 Test Item Value Reference Range Interpretation Comments Lymphocytes (test code = Lymphocytes) 13.2 20.0-40.0 [place] 222910-12-07 10:24:00 Test Item Value Reference Range Interpretation Comments Monocytes (test code = Monocytes) 10.9 2.0-12.0 [facility] CenterPtkxcbsOGSPJQABQQ9489-21-25 10:24:00 Test Item Value Reference Range Interpretation Comments Eosinophils (test code = 4.6 See_Comment [A utomated message] The Eosinophils) system which ge nerated this result tra nsmitted reference range : <=4.0. The reference r christiano was not used to int erpret this result as normal/abnormal . [facility] CenterVdkumvxSDPWOSUFXP5741-14-92 10:24:00 Test Item Value Reference Range Interpretation Comments Basophils (test code = 0.7 See_Comment [Aut omated message] The Basophils) system which ge nerated this result tra nsmitted reference range : <=1.0. The reference r christiano was not used to int erpret this result as normal/abnormal . [place] 222910-12-07 10:24:00 Test Item Value Reference Range Interpretation Comments Neutrophils # (test code = Neutrophils 5.3 1.5-8.1 #) [facility] CenterSwwlzxhNSOGKNRXFR1987-61-11 10:24:00 Test Item Value Reference Range Interpretation Comments Lymphocytes # (test code = Lymphocytes 1.0 1.0-5.5 #) [facility] CenterBzfcbvaQXGDWGGQFN4577-21-46 10:24:00 Test Item Value Reference Range Interpretation Comments Monocytes # (test code 0.8 See_Comment [Aut omated message] The = Monocytes #) system which generated this result tra nsmitted reference range : <=0.8. The reference r christiano was not used to int erpret this result as normal/abnormal . [facility] CenterUddmvomELLFONMCEB7453-30-62 10:24:00 Test Item Value Reference Range Interpretation Comments Eosinophils # (test code 0.3 See_Comment [A utomated message] The = Eosinophils #) system whic h generated this result tra nsmitted reference range : <=0.5. The reference r christiano was not used to int erpret this result as normal/abnormal . [facility] CenterQjsnobcSSKIUJPQGE4877-65-92 10:24:00 Test Item Value Reference Range Interpretation Comments Basophils # (test code 0.1 See_Comment [Aut omated message] The = Basophils #) system which generated this result tra nsmitted reference range : <=0.2. The reference r christiano was not used to int erpret this result as normal/abnormal . [facility] CenterPsuntvhQERBKZJVGN0114-80-44 10:24:00 Test Item Value Reference Range Interpretation Comments WBC (test code = WBC) 7.5 3.7-10.4 [facility] CenterTikejhfTSSTENTODA1201-23-34 10:24:00 Test Item Value Reference Range Interpretation Comments RBC (test code = RBC) 3.85 4.20-5.40 [facility] CenterYixggugROZYWRYHAZ2606-67-22 10:24:00 Test Item Value Reference Range Interpretation Comments Hgb (test code = Hgb) 10.6 12.0-16.0 [place] [address]-12-07 10:24:00 Test Item Value Reference Range Interpretation Comments Hct (test code = Hct) 32.1 36.0-48.0 [place] [address]-12-07 10:24:00 Test Item Value Reference Range Interpretation Comments MCV (test code = MCV) 83.5 80.0-98.0 [place] 222910-12-07 10:24:00 Test Item Value Reference Range Interpretation Comments MCH (test code = MCH) 27.7 pg 27.0-31.0 [facility] CenterTpdanjvLYKWFAIDAX9922-39-29 10:24:00 Test Item Value Reference Range Interpretation Comments MCHC (test code = MCHC) 33.1 32.0-36.0 [facility] CenterUszpwmwWWDJGYXUBR1119-14-22 10:24:00 Test Item Value Reference Range Interpretation Comments RDW (test code = RDW) 16.8 11.5-14.5 [facility] CenterHksnvitTPAHVIVABV8686-56-85 10:24:00 Test Item Value Reference Range Interpretation Comments Platelet (test code = Platelet) 185 133-450 [facility] CenterDskxbndGWHNMSZXYY5748-89-03 10:24:00 Test Item Value Reference Range Interpretation Comments MPV (test code = MPV) 8.4 7.4-10.4 [facility]2020-12-07 10:24:00 Test Item Value Reference Range Interpretation Comments Glucose Lvl (test code = Glucose Lvl) 66 70-99 [facility]2020-12-07 10:24:00 Test Item Value Reference Range Interpretation Comments BUN (test code = BUN) 19 7-22 [place] 678380-12-07 10:24:00 Test Item Value Reference Range Interpretation Comments Creatinine Lvl (test code = Creatinine 1.82 0.50-1.40 Lvl) [place] 678380-12-07 10:24:00 Test Item Value Reference Range Interpretation Comments Sodium Lvl (test code = Sodium Lvl) 139 135-145 [place] 678380-12-07 10:24:00 Test Item Value Reference Range Interpretation Comments Potassium Lvl (test code = Potassium 4.2 3.5-5.1 Lvl) [facility]2020-12-07 10:24:00 Test Item Value Reference Range Interpretation Comments Chloride Lvl (test code = Chloride Lvl) 105 95-109 [place] 678380-12-07 10:24:00 Test Item Value Reference Range Interpretation Comments CO2 (test code = CO2) 28 24-32 [place] 678380-12-07 10:24:00 Test Item Value Reference Range Interpretation Comments Calcium Lvl (test code = Calcium Lvl) 8.2 8.5-10.5 [facility]2020-12-07 10:24:00 Test Item Value Reference Range Interpretation Comments AGAP (test code = AGAP) 10.2 10.0-20.0 [facility]2020-12-07 10:24:00 Test Item Value Reference Range Interpretation Comments eGFR (test code = eGFR) 26 [place] [address]-12-07 10:24:00 Test Item Value Reference Range Interpretation Comments Segs (test code = Segs) 70.6 45.0-75.0 [place] 222910-12-07 10:24:00 Test Item Value Reference Range Interpretation Comments Lymphocytes (test code = Lymphocytes) 13.2 20.0-40.0 [place] 222910-12-07 10:24:00 Test Item Value Reference Range Interpretation Comments Monocytes (test code = Monocytes) 10.9 2.0-12.0 [place] 222910-12-07 10:24:00 Test Item Value Reference Range Interpretation Comments Eosinophils (test code = 4.6 See_Comment [A utomated message] The Eosinophils) system which ge nerated this result tra nsmitted reference range : <=4.0. The reference r christiano was not used to int erpret this result as normal/abnormal . [facility] CenterIdyezhyRSZUTOSPRX0345-99-27 10:24:00 Test Item Value Reference Range Interpretation Comments Basophils (test code = 0.7 See_Comment [Aut omated message] The Basophils) system which ge nerated this result tra nsmitted reference range : <=1.0. The reference r christiano was not used to int erpret this result as normal/abnormal . [facility] CenterIovmbwrHTDBWNINBB0978-86-70 10:24:00 Test Item Value Reference Range Interpretation Comments Neutrophils # (test code = Neutrophils 5.3 1.5-8.1 #) [facility] CenterGkagnwfKXSQYUUFDK0451-59-43 10:24:00 Test Item Value Reference Range Interpretation Comments Lymphocytes # (test code = Lymphocytes 1.0 1.0-5.5 #) [facility] CenterOgeyxtuVSRSFHFCPY5414-61-42 10:24:00 Test Item Value Reference Range Interpretation Comments Monocytes # (test code 0.8 See_Comment [Aut omated message] The = Monocytes #) system which generated this result tra nsmitted reference range : <=0.8. The reference r christiano was not used to int erpret this result as normal/abnormal . [facility] CenterVipioeiLMDLRHNYNK5983-06-50 10:24:00 Test Item Value Reference Range Interpretation Comments Eosinophils # (test code 0.3 See_Comment [A utomated message] The = Eosinophils #) system whic h generated this result tra nsmitted reference range : <=0.5. The reference r christiano was not used to int erpret this result as normal/abnormal . [facility] CenterQzufwdeLMXAXOHQEL1480-89-92 10:24:00 Test Item Value Reference Range Interpretation Comments Basophils # (test code 0.1 See_Comment [Aut omated message] The = Basophils #) system which generated this result tra nsmitted reference range : <=0.2. The reference r christiano was not used to int erpret this result as normal/abnormal . [facility] CenterNdfpfdzBUZSGYYDMK9917-58-77 10:24:00 Test Item Value Reference Range Interpretation Comments WBC (test code = WBC) 7.5 3.7-10.4 [facility] CenterLxaeiihMENCQNPOAQ6983-99-01 10:24:00 Test Item Value Reference Range Interpretation Comments RBC (test code = RBC) 3.85 4.20-5.40 [place] 222910-12-07 10:24:00 Test Item Value Reference Range Interpretation Comments Hgb (test code = Hgb) 10.6 12.0-16.0 [place] [address]-12-07 10:24:00 Test Item Value Reference Range Interpretation Comments Hct (test code = Hct) 32.1 36.0-48.0 [place] [address]-12-07 10:24:00 Test Item Value Reference Range Interpretation Comments MCV (test code = MCV) 83.5 80.0-98.0 [place] [address]-12-07 10:24:00 Test Item Value Reference Range Interpretation Comments MCH (test code = MCH) 27.7 pg 27.0-31.0 [place] 222910-12-07 10:24:00 Test Item Value Reference Range Interpretation Comments MCHC (test code = MCHC) 33.1 32.0-36.0 [place] 222910-12-07 10:24:00 Test Item Value Reference Range Interpretation Comments RDW (test code = RDW) 16.8 11.5-14.5 [place] [address]-12-07 10:24:00 Test Item Value Reference Range Interpretation Comments Platelet (test code = Platelet) 185 133-450 [facility] CenterRybqqebVJOJPGPFWH8296-21-40 10:24:00 Test Item Value Reference Range Interpretation Comments MPV (test code = MPV) 8.4 7.4-10.4 [facility]2020-12-07 10:24:00 Test Item Value Reference Range Interpretation Comments Glucose Lvl (test code = Glucose Lvl) 66 70-99 [facility]2020-12-07 10:24:00 Test Item Value Reference Range Interpretation Comments BUN (test code = BUN) 19 7-22 [facility]2020-12-07 10:24:00 Test Item Value Reference Range Interpretation Comments Creatinine Lvl (test code = Creatinine 1.82 0.50-1.40 Lvl) [facility]2020-12-07 10:24:00 Test Item Value Reference Range Interpretation Comments Sodium Lvl (test code = Sodium Lvl) 139 135-145 [facility]2020-12-07 10:24:00 Test Item Value Reference Range Interpretation Comments Potassium Lvl (test code = Potassium 4.2 3.5-5.1 Lvl) [place] 678380-12-07 10:24:00 Test Item Value Reference Range Interpretation Comments Chloride Lvl (test code = Chloride Lvl) 105 95-109 [place] 678380-12-07 10:24:00 Test Item Value Reference Range Interpretation Comments CO2 (test code = CO2) 28 24-32 [place] 678380-12-07 10:24:00 Test Item Value Reference Range Interpretation Comments Calcium Lvl (test code = Calcium Lvl) 8.2 8.5-10.5 [place] 678380-12-07 10:24:00 Test Item Value Reference Range Interpretation Comments AGAP (test code = AGAP) 10.2 10.0-20.0 [facility]2020-12-07 10:24:00 Test Item Value Reference Range Interpretation Comments eGFR (test code = eGFR) 26 [facility] CenterCtixfebNKUZLHDUTR1271-11-79 10:24:00 Test Item Value Reference Range Interpretation Comments Segs (test code = Segs) 70.6 45.0-75.0 [place] 222910-12-07 10:24:00 Test Item Value Reference Range Interpretation Comments Lymphocytes (test code = Lymphocytes) 13.2 20.0-40.0 [place] 222910-12-07 10:24:00 Test Item Value Reference Range Interpretation Comments Monocytes (test code = Monocytes) 10.9 2.0-12.0 [place] 222910-12-07 10:24:00 Test Item Value Reference Range Interpretation Comments Eosinophils (test code = 4.6 See_Comment [A utomated message] The Eosinophils) system which ge nerated this result tra nsmitted reference range : <=4.0. The reference r christiano was not used to int erpret this result as normal/abnormal . [facility] CenterJyjuahlJBGLPLNMPN5189-65-93 10:24:00 Test Item Value Reference Range Interpretation Comments Basophils (test code = 0.7 See_Comment [Aut omated message] The Basophils) system which ge nerated this result tra nsmitted reference range : <=1.0. The reference r christiano was not used to int erpret this result as normal/abnormal . [place] [address]-12-07 10:24:00 Test Item Value Reference Range Interpretation Comments Neutrophils # (test code = Neutrophils 5.3 1.5-8.1 #) [facility] CenterEfafaljPCJMSAFXOX2964-13-29 10:24:00 Test Item Value Reference Range Interpretation Comments Lymphocytes # (test code = Lymphocytes 1.0 1.0-5.5 #) [facility] CenterWoixpazUZKVQCHFQT9753-30-86 10:24:00 Test Item Value Reference Range Interpretation Comments Monocytes # (test code 0.8 See_Comment [Aut omated message] The = Monocytes #) system which generated this result tra nsmitted reference range : <=0.8. The reference r christiano was not used to int erpret this result as normal/abnormal . [facility] CenterMxsmlygDIQWGSJNRO8456-52-75 10:24:00 Test Item Value Reference Range Interpretation Comments Eosinophils # (test code 0.3 See_Comment [A utomated message] The = Eosinophils #) system whic h generated this result tra nsmitted reference range : <=0.5. The reference r christiano was not used to int erpret this result as normal/abnormal . [facility] CenterYnkrlriHYJWOVDPOC3332-50-18 10:24:00 Test Item Value Reference Range Interpretation Comments Basophils # (test code 0.1 See_Comment [Aut omated message] The = Basophils #) system which generated this result tra nsmitted reference range : <=0.2. The reference r christiano was not used to int erpret this result as normal/abnormal . [facility] CenterTgkqmcrDPVHUEHVIU1204-64-93 10:24:00 Test Item Value Reference Range Interpretation Comments WBC (test code = WBC) 7.5 3.7-10.4 [facility] CenterNmnjmbwJDKFWETCAC8598-31-53 10:24:00 Test Item Value Reference Range Interpretation Comments RBC (test code = RBC) 3.85 4.20-5.40 [place] 222910-12-07 10:24:00 Test Item Value Reference Range Interpretation Comments Hgb (test code = Hgb) 10.6 12.0-16.0 [place] [address]-12-07 10:24:00 Test Item Value Reference Range Interpretation Comments Hct (test code = Hct) 32.1 36.0-48.0 [facility] CenterQlvtinpBVZUICQHQD7175-83-48 10:24:00 Test Item Value Reference Range Interpretation Comments MCV (test code = MCV) 83.5 80.0-98.0 [facility] CenterMoxfrmrZARZQHWADI5164-80-64 10:24:00 Test Item Value Reference Range Interpretation Comments MCH (test code = MCH) 27.7 pg 27.0-31.0 [place] 222910-12-07 10:24:00 Test Item Value Reference Range Interpretation Comments MCHC (test code = MCHC) 33.1 32.0-36.0 [facility] CenterHuyhwrrIGTBRMIHPS8213-44-14 10:24:00 Test Item Value Reference Range Interpretation Comments RDW (test code = RDW) 16.8 11.5-14.5 [facility] CenterYvorndhVBYNDEQLXO0383-44-62 10:24:00 Test Item Value Reference Range Interpretation Comments Platelet (test code = Platelet) 185 133-450 [facility] CenterQvxasgdJWNAAFGDTZ4122-83-71 10:24:00 Test Item Value Reference Range Interpretation Comments MPV (test code = MPV) 8.4 7.4-10.4 [facility]2020-12-07 10:24:00 Test Item Value Reference Range Interpretation Comments Glucose Lvl (test code = Glucose Lvl) 66 70-99 [facility]2020-12-07 10:24:00 Test Item Value Reference Range Interpretation Comments BUN (test code = BUN) 19 7-22 [facility]2020-12-07 10:24:00 Test Item Value Reference Range Interpretation Comments Creatinine Lvl (test code = Creatinine 1.82 0.50-1.40 Lvl) [facility]2020-12-07 10:24:00 Test Item Value Reference Range Interpretation Comments Sodium Lvl (test code = Sodium Lvl) 139 135-145 [facility]2020-12-07 10:24:00 Test Item Value Reference Range Interpretation Comments Potassium Lvl (test code = Potassium 4.2 3.5-5.1 Lvl) [facility]2020-12-07 10:24:00 Test Item Value Reference Range Interpretation Comments Chloride Lvl (test code = Chloride Lvl) 105 95-109 [facility]2020-12-07 10:24:00 Test Item Value Reference Range Interpretation Comments CO2 (test code = CO2) 28 24-32 [place] 678380-12-07 10:24:00 Test Item Value Reference Range Interpretation Comments Calcium Lvl (test code = Calcium Lvl) 8.2 8.5-10.5 [facility]2020-12-07 10:24:00 Test Item Value Reference Range Interpretation Comments AGAP (test code = AGAP) 10.2 10.0-20.0 [facility]2020-12-07 10:24:00 Test Item Value Reference Range Interpretation Comments eGFR (test code = eGFR) 26 [facility] CenterZvgglmcTDDQXWZTGP3621-77-78 10:24:00 Test Item Value Reference Range Interpretation Comments Segs (test code = Segs) 70.6 45.0-75.0 [facility] CenterWpewwprLZOFMSLQVU7994-37-79 10:24:00 Test Item Value Reference Range Interpretation Comments Lymphocytes (test code = Lymphocytes) 13.2 20.0-40.0 [facility] CenterDykkbmmOYCJZWWWCC1271-32-55 10:24:00 Test Item Value Reference Range Interpretation Comments Monocytes (test code = Monocytes) 10.9 2.0-12.0 [facility] CenterWujdnqbELTCUVPQPM4286-84-02 10:24:00 Test Item Value Reference Range Interpretation Comments Eosinophils (test code = 4.6 See_Comment [A utomated message] The Eosinophils) system which ge nerated this result tra nsmitted reference range : <=4.0. The reference r chritsiano was not used to int erpret this result as normal/abnormal . [facility] CenterTbwawleSTOVDFGWJY2242-83-72 10:24:00 Test Item Value Reference Range Interpretation Comments Basophils (test code = 0.7 See_Comment [Aut omated message] The Basophils) system which ge nerated this result tra nsmitted reference range : <=1.0. The reference r christiano was not used to int erpret this result as normal/abnormal . [facility] CenterAulzmxxAMEVQNEJKR0010-07-50 10:24:00 Test Item Value Reference Range Interpretation Comments Neutrophils # (test code = Neutrophils 5.3 1.5-8.1 #) [place] 222910-12-07 10:24:00 Test Item Value Reference Range Interpretation Comments Lymphocytes # (test code = Lymphocytes 1.0 1.0-5.5 #) [place] 222910-12-07 10:24:00 Test Item Value Reference Range Interpretation Comments Monocytes # (test code 0.8 See_Comment [Aut omated message] The = Monocytes #) system which generated this result tra nsmitted reference range : <=0.8. The reference r christiano was not used to int erpret this result as normal/abnormal . [facility] CenterGxosthpKPYXHTTFVL0670-65-47 10:24:00 Test Item Value Reference Range Interpretation Comments Eosinophils # (test code 0.3 See_Comment [A utomated message] The = Eosinophils #) system whic h generated this result tra nsmitted reference range : <=0.5. The reference r christiano was not used to int erpret this result as normal/abnormal . [facility] CenterKfxjngaPGPXLOWZBV2417-28-20 10:24:00 Test Item Value Reference Range Interpretation Comments Basophils # (test code 0.1 See_Comment [Aut omated message] The = Basophils #) system which generated this result tra nsmitted reference range : <=0.2. The reference r christiano was not used to int erpret this result as normal/abnormal . [facility] CenterIodltjhGOQJISAOPW1081-78-56 10:24:00 Test Item Value Reference Range Interpretation Comments WBC (test code = WBC) 7.5 3.7-10.4 [facility] CenterQqnvpptACJZMLGUSW9174-41-86 10:24:00 Test Item Value Reference Range Interpretation Comments RBC (test code = RBC) 3.85 4.20-5.40 [facility] CenterDryilcdLFYUFWPIOJ8418-39-19 10:24:00 Test Item Value Reference Range Interpretation Comments Hgb (test code = Hgb) 10.6 12.0-16.0 [facility] CenterSwhnxmjUSUDVTCIVE2719-83-32 10:24:00 Test Item Value Reference Range Interpretation Comments Hct (test code = Hct) 32.1 36.0-48.0 [place] 222910-12-07 10:24:00 Test Item Value Reference Range Interpretation Comments MCV (test code = MCV) 83.5 80.0-98.0 [facility] CenterDshvamrIPAGWXZBYP2953-12-05 10:24:00 Test Item Value Reference Range Interpretation Comments MCH (test code = MCH) 27.7 pg 27.0-31.0 [facility] CenterMtucuooRPQBJTINHW8065-46-65 10:24:00 Test Item Value Reference Range Interpretation Comments MCHC (test code = MCHC) 33.1 32.0-36.0 [facility] CenterVrwpepiTHKBESUZFI3690-30-66 10:24:00 Test Item Value Reference Range Interpretation Comments RDW (test code = RDW) 16.8 11.5-14.5 [facility] CenterRcyppehSLRQKQHZGR6014-45-06 10:24:00 Test Item Value Reference Range Interpretation Comments Platelet (test code = Platelet) 185 133-450 [facility] CenterEwbirqcLIRBZNIEXQ5794-57-85 10:24:00 Test Item Value Reference Range Interpretation Comments MPV (test code = MPV) 8.4 7.4-10.4 [facility]2020-12-07 10:24:00 Test Item Value Reference Range Interpretation Comments Glucose Lvl (test code = Glucose Lvl) 66 70-99 [facility]2020-12-07 10:24:00 Test Item Value Reference Range Interpretation Comments BUN (test code = BUN) 19 7-22 [facility]2020-12-07 10:24:00 Test Item Value Reference Range Interpretation Comments Creatinine Lvl (test code = Creatinine 1.82 0.50-1.40 Lvl) [facility]2020-12-07 10:24:00 Test Item Value Reference Range Interpretation Comments Sodium Lvl (test code = Sodium Lvl) 139 135-145 [facility]2020-12-07 10:24:00 Test Item Value Reference Range Interpretation Comments Potassium Lvl (test code = Potassium 4.2 3.5-5.1 Lvl) [facility]2020-12-07 10:24:00 Test Item Value Reference Range Interpretation Comments Chloride Lvl (test code = Chloride Lvl) 105 95-109 [facility]2020-12-07 10:24:00 Test Item Value Reference Range Interpretation Comments CO2 (test code = CO2) 28 24-32 [facility]2020-12-07 10:24:00 Test Item Value Reference Range Interpretation Comments Calcium Lvl (test code = Calcium Lvl) 8.2 8.5-10.5 [facility]2020-12-07 10:24:00 Test Item Value Reference Range Interpretation Comments AGAP (test code = AGAP) 10.2 10.0-20.0 [facility]2020-12-07 10:24:00 Test Item Value Reference Range Interpretation Comments eGFR (test code = eGFR) 26 [facility] CenterMjnqhxnAZMKKQXONP2521-33-40 10:24:00 Test Item Value Reference Range Interpretation Comments Segs (test code = Segs) 70.6 45.0-75.0 [facility] CenterXojshwlPNJLTLQFSL9967-97-19 10:24:00 Test Item Value Reference Range Interpretation Comments Lymphocytes (test code = Lymphocytes) 13.2 20.0-40.0 [facility] CenterLkpjbfcXDFTKLFDOD7311-70-28 10:24:00 Test Item Value Reference Range Interpretation Comments Monocytes (test code = Monocytes) 10.9 2.0-12.0 [facility] CenterTpaqfddCXXVWIVFAS7994-51-51 10:24:00 Test Item Value Reference Range Interpretation Comments Eosinophils (test code = 4.6 See_Comment [A utomated message] The Eosinophils) system which ge nerated this result tra nsmitted reference range : <=4.0. The reference r christiano was not used to int erpret this result as normal/abnormal . [facility] CenterRxytmhbNIAYTDKEPV8822-65-57 10:24:00 Test Item Value Reference Range Interpretation Comments Basophils (test code = 0.7 See_Comment [Aut omated message] The Basophils) system which ge nerated this result tra nsmitted reference range : <=1.0. The reference r christiano was not used to int erpret this result as normal/abnormal . [facility] CenterXtuansdWITEUYRTMN8130-49-06 10:24:00 Test Item Value Reference Range Interpretation Comments Neutrophils # (test code = Neutrophils 5.3 1.5-8.1 #) [facility] CenterCeuhkpoLHXHFGOCKA3653-86-34 10:24:00 Test Item Value Reference Range Interpretation Comments Lymphocytes # (test code = Lymphocytes 1.0 1.0-5.5 #) [facility] CenterDbfmnujWBBCJNTEZA1351-58-13 10:24:00 Test Item Value Reference Range Interpretation Comments Monocytes # (test code 0.8 See_Comment [Aut omated message] The = Monocytes #) system which generated this result tra nsmitted reference range : <=0.8. The reference r christiano was not used to int erpret this result as normal/abnormal . [facility] CenterHrwrgszMXJNWWNTWL4883-01-87 10:24:00 Test Item Value Reference Range Interpretation Comments Eosinophils # (test code 0.3 See_Comment [A utomated message] The = Eosinophils #) system whic h generated this result tra nsmitted reference range : <=0.5. The reference r christiano was not used to int erpret this result as normal/abnormal . [facility] CenterTasuiboUUOXWNCTSY0940-06-93 10:24:00 Test Item Value Reference Range Interpretation Comments Basophils # (test code 0.1 See_Comment [Aut omated message] The = Basophils #) system which generated this result tra nsmitted reference range : <=0.2. The reference r christiano was not used to int erpret this result as normal/abnormal . [facility] CenterCqndjjgPDJESJCPWY8111-37-86 10:24:00 Test Item Value Reference Range Interpretation Comments WBC (test code = WBC) 7.5 3.7-10.4 [facility] CenterHbzxeuuVUDVACRXZO8130-87-05 10:24:00 Test Item Value Reference Range Interpretation Comments RBC (test code = RBC) 3.85 4.20-5.40 [facility] CenterTcxokkwVXEMAZBYWG5250-76-56 10:24:00 Test Item Value Reference Range Interpretation Comments Hgb (test code = Hgb) 10.6 12.0-16.0 [facility] CenterVpbvddgQHVDJWYMDR2339-64-09 10:24:00 Test Item Value Reference Range Interpretation Comments Hct (test code = Hct) 32.1 36.0-48.0 [facility] CenterGavfrsgHHYOJKPRJD4452-23-70 10:24:00 Test Item Value Reference Range Interpretation Comments MCV (test code = MCV) 83.5 80.0-98.0 [facility] CenterYlhsgfwPLZOMACXMW7649-91-19 10:24:00 Test Item Value Reference Range Interpretation Comments MCH (test code = MCH) 27.7 pg 27.0-31.0 [facility] CenterWernnndPVSSJQLTPZ3913-01-46 10:24:00 Test Item Value Reference Range Interpretation Comments MCHC (test code = MCHC) 33.1 32.0-36.0 [facility] CenterUhcajkqLQHKMDZEBA2033-02-93 10:24:00 Test Item Value Reference Range Interpretation Comments RDW (test code = RDW) 16.8 11.5-14.5 [facility] CenterKhstvbxWKDHEXWTGZ7920-05-07 10:24:00 Test Item Value Reference Range Interpretation Comments Platelet (test code = Platelet) 185 133-450 [place] 222910-12-07 10:24:00 Test Item Value Reference Range Interpretation Comments MPV (test code = MPV) 8.4 7.4-10.4 [place] [address]-12-06 09:53:13 Test Item Value Reference Range Interpretation Comments Magnesium Lvl (test code = Magnesium 2.2 1.8-2.4 Lvl) [place] [address]-12-06 09:53:13 Test Item Value Reference Range Interpretation Comments Phosphorus (test code = Phosphorus) 2.9 2.5-4.5 [place] [address]-12-06 09:53:13 Test Item Value Reference Range Interpretation Comments Glucose Lvl (test code = Glucose Lvl) 102 70-99 [place] [address]-12-06 09:53:13 Test Item Value Reference Range Interpretation Comments BUN (test code = BUN) 17 7-22 [place] [address]-12-06 09:53:13 Test Item Value Reference Range Interpretation Comments Creatinine Lvl (test code = Creatinine 1.51 0.50-1.40 Lvl) [place] [address]-12-06 09:53:13 Test Item Value Reference Range Interpretation Comments Sodium Lvl (test code = Sodium Lvl) 140 135-145 [place] 678380-12-06 09:53:13 Test Item Value Reference Range Interpretation Comments Potassium Lvl (test code = Potassium 3.5 3.5-5.1 Lvl) [place] [address]-12-06 09:53:13 Test Item Value Reference Range Interpretation Comments Chloride Lvl (test code = Chloride Lvl) 106 95-109 [place] 678380-12-06 09:53:13 Test Item Value Reference Range Interpretation Comments CO2 (test code = CO2) 29 24-32 [place] [address]-12-06 09:53:13 Test Item Value Reference Range Interpretation Comments Calcium Lvl (test code = Calcium Lvl) 8.3 8.5-10.5 [place] [address]-12-06 09:53:13 Test Item Value Reference Range Interpretation Comments AGAP (test code = AGAP) 8.5 10.0-20.0 [place] [address]-12-06 09:53:13 Test Item Value Reference Range Interpretation Comments eGFR (test code = eGFR) 33 [facility]ikbtwhDCTSEXCOVP9379-31-70 09:53:13 Test Item Value Reference Range Interpretation Comments WBC (test code = WBC) 8.7 3.7-10.4 [facility] CenterRixkrqcUQOSVCBUSI8681-91-37 09:53:13 Test Item Value Reference Range Interpretation Comments RBC (test code = RBC) 3.96 4.20-5.40 [place] 222910-12-06 09:53:13 Test Item Value Reference Range Interpretation Comments Hgb (test code = Hgb) 10.7 12.0-16.0 [place] [address]-12-06 09:53:13 Test Item Value Reference Range Interpretation Comments Hct (test code = Hct) 32.8 36.0-48.0 [place] 222910-12-06 09:53:13 Test Item Value Reference Range Interpretation Comments MCV (test code = MCV) 83.0 80.0-98.0 [place] 222910-12-06 09:53:13 Test Item Value Reference Range Interpretation Comments MCH (test code = MCH) 26.9 pg 27.0-31.0 [facility] CenterPsqjlohCYENQCUZUC0131-52-51 09:53:13 Test Item Value Reference Range Interpretation Comments MCHC (test code = MCHC) 32.4 32.0-36.0 [facility] CenterGxwslrtPVRHAUBIFB3422-48-37 09:53:13 Test Item Value Reference Range Interpretation Comments RDW (test code = RDW) 16.5 11.5-14.5 [facility] CenterEzzktncNQQZCMEZJK2163-33-36 09:53:13 Test Item Value Reference Range Interpretation Comments Platelet (test code = Platelet) 157 133-450 [facility] CenterRmqfufiGIVPAXLRLG5512-70-03 09:53:13 Test Item Value Reference Range Interpretation Comments MPV (test code = MPV) 7.5 7.4-10.4 [place] 222910-12-06 09:53:13 Test Item Value Reference Range Interpretation Comments Neutrophils # (test code = Neutrophils 7.2 1.5-8.1 #) [facility] CenterHqghyzsDCOJNOFYAM2128-39-54 09:53:13 Test Item Value Reference Range Interpretation Comments Lymphocytes # (test code = Lymphocytes 0.9 1.0-5.5 #) [place] [address]-12-06 09:53:13 Test Item Value Reference Range Interpretation Comments Monocytes # (test code 0.5 See_Comment [Aut omated message] The = Monocytes #) system which generated this result tra nsmitted reference range : <=0.8. The reference r christiano was not used to int erpret this result as normal/abnormal . [place] 222910-12-06 09:53:13 Test Item Value Reference Range Interpretation Comments Basophils # (test code 0.1 See_Comment [Aut omated message] The = Basophils #) system which generated this result tra nsmitted reference range : <=0.2. The reference r christiano was not used to int erpret this result as normal/abnormal . [facility] CenterZfcykrzRUVRFWHVOU3905-34-11 09:53:13 Test Item Value Reference Range Interpretation Comments Segs (test code = Segs) 83.0 45.0-75.0 [place] 222910-12-06 09:53:13 Test Item Value Reference Range Interpretation Comments Bands (test code = 0.0 See_Comment [Automat ed message] The Bands) system which ge nerated this result transmit sheba reference range : <=11.0. The reference r christiano was not used to interpr et this result as edy l/abnormal. [facility] CenterItgcpcqIAZDLEJGZI8148-64-76 09:53:13 Test Item Value Reference Range Interpretation Comments Lymphocytes (test code = Lymphocytes) 10.0 20.0-40.0 [place] [address]-12-06 09:53:13 Test Item Value Reference Range Interpretation Comments Monocytes (test code = Monocytes) 6.0 2.0-12.0 [place] [address]-12-06 09:53:13 Test Item Value Reference Range Interpretation Comments Basophils (test code = 1.0 See_Comment [Aut omated message] The Basophils) system which ge nerated this result tra nsmitted reference range : <=1.0. The reference r christiano was not used to int erpret this result as normal/abnormal . [place] 222910-12-06 09:53:13 Test Item Value Reference Range Interpretation Comments Atypical Lymphs (test code = Atypical 0.0 Lymphs) [place] [address]-12-06 09:53:13 Test Item Value Reference Range Interpretation Comments RBC Morph (test code = Normal (09/05/20 3:53 RBC Morph) AM) [facility]winMqnaluvIRMBWQCZVS6923-09-59 09:53:13 Test Item Value Reference Range Interpretation Comments Plt Morph (test code = Normal (09/05/20 3:53 Plt Morph) AM) [place] [address]-12-06 09:53:13 Test Item Value Reference Range Interpretation Comments Magnesium Lvl (test code = Magnesium 2.2 1.8-2.4 Lvl) [place] 678380-12-06 09:53:13 Test Item Value Reference Range Interpretation Comments Phosphorus (test code = Phosphorus) 2.9 2.5-4.5 [place] [address]-12-06 09:53:13 Test Item Value Reference Range Interpretation Comments Glucose Lvl (test code = Glucose Lvl) 102 70-99 [place] [address]-12-06 09:53:13 Test Item Value Reference Range Interpretation Comments BUN (test code = BUN) 17 7-22 [place] [address]-12-06 09:53:13 Test Item Value Reference Range Interpretation Comments Creatinine Lvl (test code = Creatinine 1.51 0.50-1.40 Lvl) [place] 678380-12-06 09:53:13 Test Item Value Reference Range Interpretation Comments Sodium Lvl (test code = Sodium Lvl) 140 135-145 [place] [address]-12-06 09:53:13 Test Item Value Reference Range Interpretation Comments Potassium Lvl (test code = Potassium 3.5 3.5-5.1 Lvl) [place] 678380-12-06 09:53:13 Test Item Value Reference Range Interpretation Comments Chloride Lvl (test code = Chloride Lvl) 106 95-109 [place] [address]-12-06 09:53:13 Test Item Value Reference Range Interpretation Comments CO2 (test code = CO2) 29 24-32 [place] 678380-12-06 09:53:13 Test Item Value Reference Range Interpretation Comments Calcium Lvl (test code = Calcium Lvl) 8.3 8.5-10.5 [place] [address]-12-06 09:53:13 Test Item Value Reference Range Interpretation Comments AGAP (test code = AGAP) 8.5 10.0-20.0 [place] [address]-12-06 09:53:13 Test Item Value Reference Range Interpretation Comments eGFR (test code = eGFR) 33 [place] [address]-12-06 09:53:13 Test Item Value Reference Range Interpretation Comments Magnesium Lvl (test code = Magnesium 2.2 1.8-2.4 Lvl) [place] [address]-12-06 09:53:13 Test Item Value Reference Range Interpretation Comments Phosphorus (test code = Phosphorus) 2.9 2.5-4.5 [address]12-06 09:53:13 Test Item Value Reference Range Interpretation Comments Glucose Lvl (test code = Glucose Lvl) 102 70-99 [place] [address]-12-06 09:53:13 Test Item Value Reference Range Interpretation Comments BUN (test code = BUN) 17 7-22 [place] [address]-12-06 09:53:13 Test Item Value Reference Range Interpretation Comments Creatinine Lvl (test code = Creatinine 1.51 0.50-1.40 Lvl) [place] [address]-12-06 09:53:13 Test Item Value Reference Range Interpretation Comments Sodium Lvl (test code = Sodium Lvl) 140 135-145 [place] 678380-12-06 09:53:13 Test Item Value Reference Range Interpretation Comments Potassium Lvl (test code = Potassium 3.5 3.5-5.1 Lvl) [address]12-06 09:53:13 Test Item Value Reference Range Interpretation Comments Chloride Lvl (test code = Chloride Lvl) 106 95-109 [facility] GladwinZafazthFHJNKZJHHK9275-71-57 09:53:13 Test Item Value Reference Range Interpretation Comments WBC (test code = WBC) 8.7 3.7-10.4 [place] [address]-12-06 09:53:13 Test Item Value Reference Range Interpretation Comments CO2 (test code = CO2) 29 24-32 [place] [address]-12-06 09:53:13 Test Item Value Reference Range Interpretation Comments Calcium Lvl (test code = Calcium Lvl) 8.3 8.5-10.5 [place] [address]-12-06 09:53:13 Test Item Value Reference Range Interpretation Comments AGAP (test code = AGAP) 8.5 10.0-20.0 [facility]2020-12-06 09:53:13 Test Item Value Reference Range Interpretation Comments eGFR (test code = eGFR) 33 [facility] CenterZgzzqqxWJXCBKLRDD6972-88-91 09:53:13 Test Item Value Reference Range Interpretation Comments WBC (test code = WBC) 8.7 3.7-10.4 [facility] CenterBjtvpfxSTVFTCTMEO2926-34-03 09:53:13 Test Item Value Reference Range Interpretation Comments RBC (test code = RBC) 3.96 4.20-5.40 [place] 222910-12-06 09:53:13 Test Item Value Reference Range Interpretation Comments Hgb (test code = Hgb) 10.7 12.0-16.0 [facility] CenterTuriwvqKWKKYBUEFX7127-19-54 09:53:13 Test Item Value Reference Range Interpretation Comments Hct (test code = Hct) 32.8 36.0-48.0 [facility] CenterNunetmzATPNYTJUXQ4801-38-09 09:53:13 Test Item Value Reference Range Interpretation Comments MCV (test code = MCV) 83.0 80.0-98.0 [facility] CenterXcbjrodITLEXZWWMX0478-41-80 09:53:13 Test Item Value Reference Range Interpretation Comments MCH (test code = MCH) 26.9 pg 27.0-31.0 [facility] CenterUuejlebGTZSFKFQTL4299-08-72 09:53:13 Test Item Value Reference Range Interpretation Comments RBC (test code = RBC) 3.96 4.20-5.40 [facility] CenterLyfpdatUFVKFCUSMI5781-06-05 09:53:13 Test Item Value Reference Range Interpretation Comments MCHC (test code = MCHC) 32.4 32.0-36.0 [place] [address]-12-06 09:53:13 Test Item Value Reference Range Interpretation Comments RDW (test code = RDW) 16.5 11.5-14.5 [place] [address]-12-06 09:53:13 Test Item Value Reference Range Interpretation Comments Platelet (test code = Platelet) 157 133-450 [facility] CenterOtdtvusMUBLOVSMZJ3923-00-00 09:53:13 Test Item Value Reference Range Interpretation Comments MPV (test code = MPV) 7.5 7.4-10.4 [place] 222910-12-06 09:53:13 Test Item Value Reference Range Interpretation Comments Neutrophils # (test code = Neutrophils 7.2 1.5-8.1 #) [facility] CenterXpyfihaOTSZDLHCLG1384-90-04 09:53:13 Test Item Value Reference Range Interpretation Comments Lymphocytes # (test code = Lymphocytes 0.9 1.0-5.5 #) [place] 222910-12-06 09:53:13 Test Item Value Reference Range Interpretation Comments Monocytes # (test code 0.5 See_Comment [Aut omated message] The = Monocytes #) system which generated this result tra nsmitted reference range : <=0.8. The reference r christiano was not used to int erpret this result as normal/abnormal . [place] [address]-12-06 09:53:13 Test Item Value Reference Range Interpretation Comments Basophils # (test code 0.1 See_Comment [Aut omated message] The = Basophils #) system which generated this result tra nsmitted reference range : <=0.2. The reference r christiano was not used to int erpret this result as normal/abnormal . [place] 222910-12-06 09:53:13 Test Item Value Reference Range Interpretation Comments Segs (test code = Segs) 83.0 45.0-75.0 [place] [address]-12-06 09:53:13 Test Item Value Reference Range Interpretation Comments Bands (test code = 0.0 See_Comment [Automat ed message] The Bands) system which ge nerated this result transmit sheba reference range : <=11.0. The reference r christiano was not used to interpr et this result as edy l/abnormal. [facility] CenterUehkkksPUTFGACPLT0325-81-31 09:53:13 Test Item Value Reference Range Interpretation Comments Hgb (test code = Hgb) 10.7 12.0-16.0 [place] [address]-12-06 09:53:13 Test Item Value Reference Range Interpretation Comments Lymphocytes (test code = Lymphocytes) 10.0 20.0-40.0 [place] [address]-12-06 09:53:13 Test Item Value Reference Range Interpretation Comments Monocytes (test code = Monocytes) 6.0 2.0-12.0 [place] [address]-12-06 09:53:13 Test Item Value Reference Range Interpretation Comments Basophils (test code = 1.0 See_Comment [Aut omated message] The Basophils) system which ge nerated this result tra nsmitted reference range : <=1.0. The reference r christiano was not used to int erpret this result as normal/abnormal . [place] 222910-12-06 09:53:13 Test Item Value Reference Range Interpretation Comments Atypical Lymphs (test code = Atypical 0.0 Lymphs) [facility] CenterDwkqfjyJDFQGAJJMZ3866-45-60 09:53:13 Test Item Value Reference Range Interpretation Comments RBC Morph (test code = Normal (09/05/20 3:53 RBC Morph) AM) [facility] CenterVpmhwqlRGJXNSEETG0253-30-47 09:53:13 Test Item Value Reference Range Interpretation Comments Plt Morph (test code = Normal (09/05/20 3:53 Plt Morph) AM) [facility] CenterYyptjgpAFLTSAKJSE6080-16-49 09:53:13 Test Item Value Reference Range Interpretation Comments Hct (test code = Hct) 32.8 36.0-48.0 [facility] CenterSuftwayLQANEVVHEF2426-52-50 09:53:13 Test Item Value Reference Range Interpretation Comments MCV (test code = MCV) 83.0 80.0-98.0 [place] 222910-12-06 09:53:13 Test Item Value Reference Range Interpretation Comments MCH (test code = MCH) 26.9 pg 27.0-31.0 [facility] CenterLbjxjmdKLWJGCZAWG5773-71-30 09:53:13 Test Item Value Reference Range Interpretation Comments MCHC (test code = MCHC) 32.4 32.0-36.0 [place] 222910-12-06 09:53:13 Test Item Value Reference Range Interpretation Comments RDW (test code = RDW) 16.5 11.5-14.5 [place] 222910-12-06 09:53:13 Test Item Value Reference Range Interpretation Comments Platelet (test code = Platelet) 157 133-450 [facility] CenterWjlubyaRUQLBTTJQG7746-46-47 09:53:13 Test Item Value Reference Range Interpretation Comments MPV (test code = MPV) 7.5 7.4-10.4 [place] 222910-12-06 09:53:13 Test Item Value Reference Range Interpretation Comments Neutrophils # (test code = Neutrophils 7.2 1.5-8.1 #) [facility] CenterMdsaaxoUTWRQWJIHH5228-47-89 09:53:13 Test Item Value Reference Range Interpretation Comments Lymphocytes # (test code = Lymphocytes 0.9 1.0-5.5 #) [place] [address]-12-06 09:53:13 Test Item Value Reference Range Interpretation Comments Monocytes # (test code 0.5 See_Comment [Aut omated message] The = Monocytes #) system which generated this result tra nsmitted reference range : <=0.8. The reference r christiano was not used to int erpret this result as normal/abnormal . [place] [address]-12-06 09:53:13 Test Item Value Reference Range Interpretation Comments Basophils # (test code 0.1 See_Comment [Aut omated message] The = Basophils #) system which generated this result tra nsmitted reference range : <=0.2. The reference r christiano was not used to int erpret this result as normal/abnormal . [facility] CenterKxtgryeGICGWIOTPI3048-29-07 09:53:13 Test Item Value Reference Range Interpretation Comments Segs (test code = Segs) 83.0 45.0-75.0 [place] [address]-12-06 09:53:13 Test Item Value Reference Range Interpretation Comments Bands (test code = 0.0 See_Comment [Automat ed message] The Bands) system which ge nerated this result transmit sheba reference range : <=11.0. The reference r christiano was not used to interpr et this result as edy l/abnormal. [facility] CenterUlvbjyiFQTXBAHBHV8280-12-90 09:53:13 Test Item Value Reference Range Interpretation Comments Lymphocytes (test code = Lymphocytes) 10.0 20.0-40.0 [place] [address]-12-06 09:53:13 Test Item Value Reference Range Interpretation Comments Monocytes (test code = Monocytes) 6.0 2.0-12.0 [place] [address]-12-06 09:53:13 Test Item Value Reference Range Interpretation Comments Basophils (test code = 1.0 See_Comment [Aut omated message] The Basophils) system which ge nerated this result tra nsmitted reference range : <=1.0. The reference r christiano was not used to int erpret this result as normal/abnormal . [place] [address]-12-06 09:53:13 Test Item Value Reference Range Interpretation Comments Atypical Lymphs (test code = Atypical 0.0 Lymphs) [address]12-06 09:53:13 Test Item Value Reference Range Interpretation Comments RBC Morph (test code = Normal (09/05/20 3:53 RBC Morph) AM) [place] [address]-12-06 09:53:13 Test Item Value Reference Range Interpretation Comments Plt Morph (test code = Normal (09/05/20 3:53 Plt Morph) AM) [address]12-06 09:53:13 Test Item Value Reference Range Interpretation Comments Magnesium Lvl (test code = Magnesium 2.2 1.8-2.4 Lvl) [place] 678380-12-06 09:53:13 Test Item Value Reference Range Interpretation Comments Phosphorus (test code = Phosphorus) 2.9 2.5-4.5 [place] [address]-12-06 09:53:13 Test Item Value Reference Range Interpretation Comments Glucose Lvl (test code = Glucose Lvl) 102 70-99 [place] 678380-12-06 09:53:13 Test Item Value Reference Range Interpretation Comments BUN (test code = BUN) 17 7-22 [place] [address]-12-06 09:53:13 Test Item Value Reference Range Interpretation Comments Creatinine Lvl (test code = Creatinine 1.51 0.50-1.40 Lvl) [address]12-06 09:53:13 Test Item Value Reference Range Interpretation Comments Sodium Lvl (test code = Sodium Lvl) 140 135-145 [place] [address]-12-06 09:53:13 Test Item Value Reference Range Interpretation Comments Potassium Lvl (test code = Potassium 3.5 3.5-5.1 Lvl) [place] [address]-12-06 09:53:13 Test Item Value Reference Range Interpretation Comments Chloride Lvl (test code = Chloride Lvl) 106 95-109 [place] [address]-12-06 09:53:13 Test Item Value Reference Range Interpretation Comments CO2 (test code = CO2) 29 24-32 [place] [address]-12-06 09:53:13 Test Item Value Reference Range Interpretation Comments Calcium Lvl (test code = Calcium Lvl) 8.3 8.5-10.5 [facility]2020-12-06 09:53:13 Test Item Value Reference Range Interpretation Comments AGAP (test code = AGAP) 8.5 10.0-20.0 [place] 678380-12-06 09:53:13 Test Item Value Reference Range Interpretation Comments eGFR (test code = eGFR) 33 [place] 222910-12-06 09:53:13 Test Item Value Reference Range Interpretation Comments WBC (test code = WBC) 8.7 3.7-10.4 [place] [address]-12-06 09:53:13 Test Item Value Reference Range Interpretation Comments RBC (test code = RBC) 3.96 4.20-5.40 [place] [address]-12-06 09:53:13 Test Item Value Reference Range Interpretation Comments Hgb (test code = Hgb) 10.7 12.0-16.0 [place] [address]-12-06 09:53:13 Test Item Value Reference Range Interpretation Comments Hct (test code = Hct) 32.8 36.0-48.0 [place] [address]-12-06 09:53:13 Test Item Value Reference Range Interpretation Comments MCV (test code = MCV) 83.0 80.0-98.0 [place] 222910-12-06 09:53:13 Test Item Value Reference Range Interpretation Comments MCH (test code = MCH) 26.9 pg 27.0-31.0 [place] 222910-12-06 09:53:13 Test Item Value Reference Range Interpretation Comments MCHC (test code = MCHC) 32.4 32.0-36.0 [place] [address]-12-06 09:53:13 Test Item Value Reference Range Interpretation Comments RDW (test code = RDW) 16.5 11.5-14.5 [place] [address]-12-06 09:53:13 Test Item Value Reference Range Interpretation Comments Platelet (test code = Platelet) 157 133-450 [place] [address]-12-06 09:53:13 Test Item Value Reference Range Interpretation Comments MPV (test code = MPV) 7.5 7.4-10.4 [place] [address]-12-06 09:53:13 Test Item Value Reference Range Interpretation Comments Neutrophils # (test code = Neutrophils 7.2 1.5-8.1 #) [facility] CenterQtfwtqfSESMBCAZSY5798-66-38 09:53:13 Test Item Value Reference Range Interpretation Comments Lymphocytes # (test code = Lymphocytes 0.9 1.0-5.5 #) [place] 222910-12-06 09:53:13 Test Item Value Reference Range Interpretation Comments Monocytes # (test code 0.5 See_Comment [Aut omated message] The = Monocytes #) system which generated this result tra nsmitted reference range : <=0.8. The reference r christiano was not used to int erpret this result as normal/abnormal . [place] [address]-12-06 09:53:13 Test Item Value Reference Range Interpretation Comments Basophils # (test code 0.1 See_Comment [Aut omated message] The = Basophils #) system which generated this result tra nsmitted reference range : <=0.2. The reference r christiano was not used to int erpret this result as normal/abnormal . [facility] CenterNyihfeuEIFODMLJGA0940-69-87 09:53:13 Test Item Value Reference Range Interpretation Comments Segs (test code = Segs) 83.0 45.0-75.0 [place] 222910-12-06 09:53:13 Test Item Value Reference Range Interpretation Comments Bands (test code = 0.0 See_Comment [Automat ed message] The Bands) system which ge nerated this result transmit sheba reference range : <=11.0. The reference r christiano was not used to interpr et this result as edy l/abnormal. [facility] CenterZyoxenzDJICBLDRPQ4432-03-90 09:53:13 Test Item Value Reference Range Interpretation Comments Lymphocytes (test code = Lymphocytes) 10.0 20.0-40.0 [place] [address]-12-06 09:53:13 Test Item Value Reference Range Interpretation Comments Monocytes (test code = Monocytes) 6.0 2.0-12.0 [place] [address]-12-06 09:53:13 Test Item Value Reference Range Interpretation Comments Basophils (test code = 1.0 See_Comment [Aut omated message] The Basophils) system which ge nerated this result tra nsmitted reference range : <=1.0. The reference r christiano was not used to int erpret this result as normal/abnormal . [place] [address]-12-06 09:53:13 Test Item Value Reference Range Interpretation Comments Atypical Lymphs (test code = Atypical 0.0 Lymphs) [address]12-06 09:53:13 Test Item Value Reference Range Interpretation Comments RBC Morph (test code = Normal (09/05/20 3:53 RBC Morph) AM) [place] [address]-12-06 09:53:13 Test Item Value Reference Range Interpretation Comments Plt Morph (test code = Normal (09/05/20 3:53 Plt Morph) AM) [place] [address]-12-06 09:53:13 Test Item Value Reference Range Interpretation Comments Magnesium Lvl (test code = Magnesium 2.2 1.8-2.4 Lvl) [place] 678380-12-06 09:53:13 Test Item Value Reference Range Interpretation Comments Phosphorus (test code = Phosphorus) 2.9 2.5-4.5 [place] [address]-12-06 09:53:13 Test Item Value Reference Range Interpretation Comments Glucose Lvl (test code = Glucose Lvl) 102 70-99 [place] [address]-12-06 09:53:13 Test Item Value Reference Range Interpretation Comments BUN (test code = BUN) 17 7-22 [place] [address]-12-06 09:53:13 Test Item Value Reference Range Interpretation Comments Creatinine Lvl (test code = Creatinine 1.51 0.50-1.40 Lvl) [place] [address]-12-06 09:53:13 Test Item Value Reference Range Interpretation Comments Sodium Lvl (test code = Sodium Lvl) 140 135-145 [place] [address]-12-06 09:53:13 Test Item Value Reference Range Interpretation Comments Potassium Lvl (test code = Potassium 3.5 3.5-5.1 Lvl) [address]12-06 09:53:13 Test Item Value Reference Range Interpretation Comments Chloride Lvl (test code = Chloride Lvl) 106 95-109 [place] [address]-12-06 09:53:13 Test Item Value Reference Range Interpretation Comments CO2 (test code = CO2) 29 24-32 [facility]2020-12-06 09:53:13 Test Item Value Reference Range Interpretation Comments Calcium Lvl (test code = Calcium Lvl) 8.3 8.5-10.5 [place] 678380-12-06 09:53:13 Test Item Value Reference Range Interpretation Comments AGAP (test code = AGAP) 8.5 10.0-20.0 [place] [address]-12-06 09:53:13 Test Item Value Reference Range Interpretation Comments eGFR (test code = eGFR) 33 [place] [address]-12-06 09:53:13 Test Item Value Reference Range Interpretation Comments WBC (test code = WBC) 8.7 3.7-10.4 [place] [address]-12-06 09:53:13 Test Item Value Reference Range Interpretation Comments RBC (test code = RBC) 3.96 4.20-5.40 [place] [address]-12-06 09:53:13 Test Item Value Reference Range Interpretation Comments Hgb (test code = Hgb) 10.7 12.0-16.0 [place] [address]-12-06 09:53:13 Test Item Value Reference Range Interpretation Comments Hct (test code = Hct) 32.8 36.0-48.0 [place] [address]-12-06 09:53:13 Test Item Value Reference Range Interpretation Comments MCV (test code = MCV) 83.0 80.0-98.0 [place] [address]-12-06 09:53:13 Test Item Value Reference Range Interpretation Comments MCH (test code = MCH) 26.9 pg 27.0-31.0 [place] [address]-12-06 09:53:13 Test Item Value Reference Range Interpretation Comments MCHC (test code = MCHC) 32.4 32.0-36.0 [place] [address]-12-06 09:53:13 Test Item Value Reference Range Interpretation Comments RDW (test code = RDW) 16.5 11.5-14.5 [place] [address]-12-06 09:53:13 Test Item Value Reference Range Interpretation Comments Platelet (test code = Platelet) 157 133-450 [place] 222910-12-06 09:53:13 Test Item Value Reference Range Interpretation Comments MPV (test code = MPV) 7.5 7.4-10.4 [place] 222910-12-06 09:53:13 Test Item Value Reference Range Interpretation Comments Neutrophils # (test code = Neutrophils 7.2 1.5-8.1 #) [facility]67[facility] 09:53:13 Test Item Value Reference Range Interpretation Comments Lymphocytes # (test code = Lymphocytes 0.9 1.0-5.5 #) [facility]XtfrhxtQAKKIHVYOK4736-87-88 09:53:13 Test Item Value Reference Range Interpretation Comments Monocytes # (test code 0.5 See_Comment [Aut omated message] The = Monocytes #) system which generated this result tra nsmitted reference range : <=0.8. The reference r christiano was not used to int erpret this result as normal/abnormal . [facility] CenterWuqpaidTBOHYRUIGE9553-00-06 09:53:13 Test Item Value Reference Range Interpretation Comments Basophils # (test code 0.1 See_Comment [Aut omated message] The = Basophils #) system which generated this result tra nsmitted reference range : <=0.2. The reference r christiano was not used to int erpret this result as normal/abnormal . [facility] CenterMywevcmBHVMSAMQBD8545-05-82 09:53:13 Test Item Value Reference Range Interpretation Comments Segs (test code = Segs) 83.0 45.0-75.0 [facility] CenterItgdgttPVFTRFKQXE3470-00-91 09:53:13 Test Item Value Reference Range Interpretation Comments Bands (test code = 0.0 See_Comment [Automat ed message] The Bands) system which ge nerated this result transmit sheba reference range : <=11.0. The reference r christiano was not used to interpr et this result as edy l/abnormal. [place] 222910-12-06 09:53:13 Test Item Value Reference Range Interpretation Comments Lymphocytes (test code = Lymphocytes) 10.0 20.0-40.0 [place] [address]-12-06 09:53:13 Test Item Value Reference Range Interpretation Comments Monocytes (test code = Monocytes) 6.0 2.0-12.0 [place] [address]-12-06 09:53:13 Test Item Value Reference Range Interpretation Comments Basophils (test code = 1.0 See_Comment [Aut omated message] The Basophils) system which ge nerated this result tra nsmitted reference range : <=1.0. The reference r christiano was not used to int erpret this result as normal/abnormal . [place] [address]-12-06 09:53:13 Test Item Value Reference Range Interpretation Comments Atypical Lymphs (test code = Atypical 0.0 Lymphs) [place] [address]-12-06 09:53:13 Test Item Value Reference Range Interpretation Comments RBC Morph (test code = Normal (09/05/20 3:53 RBC Morph) AM) [address]12-06 09:53:13 Test Item Value Reference Range Interpretation Comments Plt Morph (test code = Normal (09/05/20 3:53 Plt Morph) AM) [place] 678380-12-06 09:53:13 Test Item Value Reference Range Interpretation Comments Magnesium Lvl (test code = Magnesium 2.2 1.8-2.4 Lvl) [place] 678380-12-06 09:53:13 Test Item Value Reference Range Interpretation Comments Phosphorus (test code = Phosphorus) 2.9 2.5-4.5 [place] [address]-12-06 09:53:13 Test Item Value Reference Range Interpretation Comments Glucose Lvl (test code = Glucose Lvl) 102 70-99 [place] [address]-12-06 09:53:13 Test Item Value Reference Range Interpretation Comments BUN (test code = BUN) 17 7-22 [place] [address]-12-06 09:53:13 Test Item Value Reference Range Interpretation Comments Creatinine Lvl (test code = Creatinine 1.51 0.50-1.40 Lvl) [place] [address]-12-06 09:53:13 Test Item Value Reference Range Interpretation Comments Sodium Lvl (test code = Sodium Lvl) 140 135-145 [place] [address]-12-06 09:53:13 Test Item Value Reference Range Interpretation Comments Potassium Lvl (test code = Potassium 3.5 3.5-5.1 Lvl) [place] [address]-12-06 09:53:13 Test Item Value Reference Range Interpretation Comments Chloride Lvl (test code = Chloride Lvl) 106 95-109 [place] 678380-12-06 09:53:13 Test Item Value Reference Range Interpretation Comments CO2 (test code = CO2) 29 24-32 [place] [address]-12-06 09:53:13 Test Item Value Reference Range Interpretation Comments Calcium Lvl (test code = Calcium Lvl) 8.3 8.5-10.5 [place] 678380-12-06 09:53:13 Test Item Value Reference Range Interpretation Comments AGAP (test code = AGAP) 8.5 10.0-20.0 [place] [address]-12-06 09:53:13 Test Item Value Reference Range Interpretation Comments eGFR (test code = eGFR) 33 [place] [address]-12-06 09:53:13 Test Item Value Reference Range Interpretation Comments WBC (test code = WBC) 8.7 3.7-10.4 [place] [address]-12-06 09:53:13 Test Item Value Reference Range Interpretation Comments RBC (test code = RBC) 3.96 4.20-5.40 [place] [address]-12-06 09:53:13 Test Item Value Reference Range Interpretation Comments Hgb (test code = Hgb) 10.7 12.0-16.0 [place] [address]-12-06 09:53:13 Test Item Value Reference Range Interpretation Comments Hct (test code = Hct) 32.8 36.0-48.0 [place] [address]-12-06 09:53:13 Test Item Value Reference Range Interpretation Comments MCV (test code = MCV) 83.0 80.0-98.0 [place] [address]-12-06 09:53:13 Test Item Value Reference Range Interpretation Comments MCH (test code = MCH) 26.9 pg 27.0-31.0 [place] [address]-12-06 09:53:13 Test Item Value Reference Range Interpretation Comments MCHC (test code = MCHC) 32.4 32.0-36.0 [place] [address]-12-06 09:53:13 Test Item Value Reference Range Interpretation Comments RDW (test code = RDW) 16.5 11.5-14.5 [place] [address]-12-06 09:53:13 Test Item Value Reference Range Interpretation Comments Platelet (test code = Platelet) 157 133-450 [place] [address]-12-06 09:53:13 Test Item Value Reference Range Interpretation Comments MPV (test code = MPV) 7.5 7.4-10.4 [place] [address]-12-06 09:53:13 Test Item Value Reference Range Interpretation Comments Neutrophils # (test code = Neutrophils 7.2 1.5-8.1 #) [place] [address]-12-06 09:53:13 Test Item Value Reference Range Interpretation Comments Lymphocytes # (test code = Lymphocytes 0.9 1.0-5.5 #) [place] [address]-12-06 09:53:13 Test Item Value Reference Range Interpretation Comments Monocytes # (test code 0.5 See_Comment [Aut omated message] The = Monocytes #) system which generated this result tra nsmitted reference range : <=0.8. The reference r christiano was not used to int erpret this result as normal/abnormal . [place] [address]-12-06 09:53:13 Test Item Value Reference Range Interpretation Comments Basophils # (test code 0.1 See_Comment [Aut omated message] The = Basophils #) system which generated this result tra nsmitted reference range : <=0.2. The reference r christiano was not used to int erpret this result as normal/abnormal . [place] [address]-12-06 09:53:13 Test Item Value Reference Range Interpretation Comments Segs (test code = Segs) 83.0 45.0-75.0 [place] [address]-12-06 09:53:13 Test Item Value Reference Range Interpretation Comments Bands (test code = 0.0 See_Comment [Automat ed message] The Bands) system which ge nerated this result transmit sheba reference range : <=11.0. The reference r christiano was not used to interpr et this result as edy l/abnormal. [place] [address]-12-06 09:53:13 Test Item Value Reference Range Interpretation Comments Lymphocytes (test code = Lymphocytes) 10.0 20.0-40.0 [place] [address]-12-06 09:53:13 Test Item Value Reference Range Interpretation Comments Monocytes (test code = Monocytes) 6.0 2.0-12.0 [place] [address]-12-06 09:53:13 Test Item Value Reference Range Interpretation Comments Basophils (test code = 1.0 See_Comment [Aut omated message] The Basophils) system which ge nerated this result tra nsmitted reference range : <=1.0. The reference r christiano was not used to int erpret this result as normal/abnormal . [place] 222910-12-06 09:53:13 Test Item Value Reference Range Interpretation Comments Atypical Lymphs (test code = Atypical 0.0 Lymphs) [address]12-06 09:53:13 Test Item Value Reference Range Interpretation Comments RBC Morph (test code = Normal (09/05/20 3:53 RBC Morph) AM) [place] [address]-12-06 09:53:13 Test Item Value Reference Range Interpretation Comments Plt Morph (test code = Normal (09/05/20 3:53 Plt Morph) AM) [place] 678380-12-06 09:53:13 Test Item Value Reference Range Interpretation Comments Magnesium Lvl (test code = Magnesium 2.2 1.8-2.4 Lvl) [place] [address]-12-06 09:53:13 Test Item Value Reference Range Interpretation Comments Phosphorus (test code = Phosphorus) 2.9 2.5-4.5 [place] [address]-12-06 09:53:13 Test Item Value Reference Range Interpretation Comments Magnesium Lvl (test code = Magnesium 2.2 1.8-2.4 Lvl) [place] [address]-12-06 09:53:13 Test Item Value Reference Range Interpretation Comments Phosphorus (test code = Phosphorus) 2.9 2.5-4.5 [place] [address]-12-06 09:53:13 Test Item Value Reference Range Interpretation Comments Glucose Lvl (test code = Glucose Lvl) 102 70-99 [place] [address]-12-06 09:53:13 Test Item Value Reference Range Interpretation Comments BUN (test code = BUN) 17 7-22 [place] [address]-12-06 09:53:13 Test Item Value Reference Range Interpretation Comments Creatinine Lvl (test code = Creatinine 1.51 0.50-1.40 Lvl) [place] [address]-12-06 09:53:13 Test Item Value Reference Range Interpretation Comments Sodium Lvl (test code = Sodium Lvl) 140 135-145 [address]12-06 09:53:13 Test Item Value Reference Range Interpretation Comments Glucose Lvl (test code = Glucose Lvl) 102 70-99 [address]12-06 09:53:13 Test Item Value Reference Range Interpretation Comments Potassium Lvl (test code = Potassium 3.5 3.5-5.1 Lvl) [address]12-06 09:53:13 Test Item Value Reference Range Interpretation Comments Chloride Lvl (test code = Chloride Lvl) 106 95-109 [address]12-06 09:53:13 Test Item Value Reference Range Interpretation Comments CO2 (test code = CO2) 29 24-32 [address]12-06 09:53:13 Test Item Value Reference Range Interpretation Comments Calcium Lvl (test code = Calcium Lvl) 8.3 8.5-10.5 [place] [address]-12-06 09:53:13 Test Item Value Reference Range Interpretation Comments AGAP (test code = AGAP) 8.5 10.0-20.0 [address]12-06 09:53:13 Test Item Value Reference Range Interpretation Comments eGFR (test code = eGFR) 33 [place] [address]-12-06 09:53:13 Test Item Value Reference Range Interpretation Comments WBC (test code = WBC) 8.7 3.7-10.4 [place] [address]-12-06 09:53:13 Test Item Value Reference Range Interpretation Comments RBC (test code = RBC) 3.96 4.20-5.[address]12-06 09:53:13 Test Item Value Reference Range Interpretation Comments Hgb (test code = Hgb) 10.7 12.0-16.0 [address]12-06 09:53:13 Test Item Value Reference Range Interpretation Comments Hct (test code = Hct) 32.8 36.0-48.0 [address]12-06 09:53:13 Test Item Value Reference Range Interpretation Comments BUN (test code = BUN) 17 7-22 [facility]xniypkRHTIKFQGVZ8138-11-28 09:53:13 Test Item Value Reference Range Interpretation Comments MCV (test code = MCV) 83.0 80.0-98.0 [place] 222910-12-06 09:53:13 Test Item Value Reference Range Interpretation Comments MCH (test code = MCH) 26.9 pg 27.0-31.0 [facility] CenterCtaswyqUSWEFPHJUC3510-12-62 09:53:13 Test Item Value Reference Range Interpretation Comments MCHC (test code = MCHC) 32.4 32.0-36.0 [place] [address]-12-06 09:53:13 Test Item Value Reference Range Interpretation Comments RDW (test code = RDW) 16.5 11.5-14.5 [place] [address]-12-06 09:53:13 Test Item Value Reference Range Interpretation Comments Platelet (test code = Platelet) 157 133-450 [place] 222910-12-06 09:53:13 Test Item Value Reference Range Interpretation Comments MPV (test code = MPV) 7.5 7.4-10.4 [place] [address]-12-06 09:53:13 Test Item Value Reference Range Interpretation Comments Neutrophils # (test code = Neutrophils 7.2 1.5-8.1 #) [facility] CenterAruojezVWWOVWIKKB4855-83-91 09:53:13 Test Item Value Reference Range Interpretation Comments Lymphocytes # (test code = Lymphocytes 0.9 1.0-5.5 #) [facility] CenterWughylwWKIPJBTBXT1904-77-59 09:53:13 Test Item Value Reference Range Interpretation Comments Monocytes # (test code 0.5 See_Comment [Aut omated message] The = Monocytes #) system which generated this result tra nsmitted reference range : <=0.8. The reference r christiano was not used to int erpret this result as normal/abnormal . [place] [address]-12-06 09:53:13 Test Item Value Reference Range Interpretation Comments Basophils # (test code 0.1 See_Comment [Aut omated message] The = Basophils #) system which generated this result tra nsmitted reference range : <=0.2. The reference r christiano was not used to int erpret this result as normal/abnormal . [facility]2020-12-06 09:53:13 Test Item Value Reference Range Interpretation Comments Creatinine Lvl (test code = Creatinine 1.51 0.50-1.40 Lvl) [place] 222910-12-06 09:53:13 Test Item Value Reference Range Interpretation Comments Segs (test code = Segs) 83.0 45.0-75.0 [place] [address]-12-06 09:53:13 Test Item Value Reference Range Interpretation Comments Bands (test code = 0.0 See_Comment [Automat ed message] The Bands) system which ge nerated this result transmit sheba reference range : <=11.0. The reference r christiano was not used to interpr et this result as edy l/abnormal. [place] 222910-12-06 09:53:13 Test Item Value Reference Range Interpretation Comments Lymphocytes (test code = Lymphocytes) 10.0 20.0-40.0 [place] 222910-12-06 09:53:13 Test Item Value Reference Range Interpretation Comments Monocytes (test code = Monocytes) 6.0 2.0-12.0 [place] [address]-12-06 09:53:13 Test Item Value Reference Range Interpretation Comments Basophils (test code = 1.0 See_Comment [Aut omated message] The Basophils) system which ge nerated this result tra nsmitted reference range : <=1.0. The reference r christiano was not used to int erpret this result as normal/abnormal . [place] 222910-12-06 09:53:13 Test Item Value Reference Range Interpretation Comments Atypical Lymphs (test code = Atypical 0.0 Lymphs) [place] 222910-12-06 09:53:13 Test Item Value Reference Range Interpretation Comments RBC Morph (test code = Normal (09/05/20 3:53 RBC Morph) AM) [place] [address]-12-06 09:53:13 Test Item Value Reference Range Interpretation Comments Plt Morph (test code = Normal (09/05/20 3:53 Plt Morph) AM) [facility]2020-12-06 09:53:13 Test Item Value Reference Range Interpretation Comments Sodium Lvl (test code = Sodium Lvl) 140 135-145 [place] 678380-12-06 09:53:13 Test Item Value Reference Range Interpretation Comments Potassium Lvl (test code = Potassium 3.5 3.5-5.1 Lvl) [place] 678380-12-06 09:53:13 Test Item Value Reference Range Interpretation Comments Chloride Lvl (test code = Chloride Lvl) 106 95-109 [place] [address]-12-06 09:53:13 Test Item Value Reference Range Interpretation Comments CO2 (test code = CO2) 29 24-32 [place] [address]-12-06 09:53:13 Test Item Value Reference Range Interpretation Comments Calcium Lvl (test code = Calcium Lvl) 8.3 8.5-10.5 [place] 678380-12-06 09:53:13 Test Item Value Reference Range Interpretation Comments AGAP (test code = AGAP) 8.5 10.0-20.0 [place] 678380-12-06 09:53:13 Test Item Value Reference Range Interpretation Comments eGFR (test code = eGFR) 33 [place] 222910-12-06 09:53:13 Test Item Value Reference Range Interpretation Comments WBC (test code = WBC) 8.7 3.7-10.4 [place] 222910-12-06 09:53:13 Test Item Value Reference Range Interpretation Comments RBC (test code = RBC) 3.96 4.20-5.40 [place] 222910-12-06 09:53:13 Test Item Value Reference Range Interpretation Comments Hgb (test code = Hgb) 10.7 12.0-16.0 [place] [address]-12-06 09:53:13 Test Item Value Reference Range Interpretation Comments Hct (test code = Hct) 32.8 36.0-48.0 [address]12-06 09:53:13 Test Item Value Reference Range Interpretation Comments MCV (test code = MCV) 83.0 80.0-98.0 [place] [address]-12-06 09:53:13 Test Item Value Reference Range Interpretation Comments MCH (test code = MCH) 26.9 pg 27.0-31.0 [place] [address]-12-06 09:53:13 Test Item Value Reference Range Interpretation Comments MCHC (test code = MCHC) 32.4 32.0-36.0 [place] [address]-12-06 09:53:13 Test Item Value Reference Range Interpretation Comments RDW (test code = RDW) 16.5 11.5-14.5 [place] [address]-12-06 09:53:13 Test Item Value Reference Range Interpretation Comments Platelet (test code = Platelet) 157 133-450 [place] [address]-12-06 09:53:13 Test Item Value Reference Range Interpretation Comments MPV (test code = MPV) 7.5 7.4-10.4 [place] [address]-12-06 09:53:13 Test Item Value Reference Range Interpretation Comments Neutrophils # (test code = Neutrophils 7.2 1.5-8.1 #) [place] [address]-12-06 09:53:13 Test Item Value Reference Range Interpretation Comments Lymphocytes # (test code = Lymphocytes 0.9 1.0-5.5 #) [place] [address]-12-06 09:53:13 Test Item Value Reference Range Interpretation Comments Monocytes # (test code 0.5 See_Comment [Aut omated message] The = Monocytes #) system which generated this result tra nsmitted reference range : <=0.8. The reference r christiano was not used to int erpret this result as normal/abnormal . [place] [address]-12-06 09:53:13 Test Item Value Reference Range Interpretation Comments Basophils # (test code 0.1 See_Comment [Aut omated message] The = Basophils #) system which generated this result tra nsmitted reference range : <=0.2. The reference r christiano was not used to int erpret this result as normal/abnormal . [place] 222910-12-06 09:53:13 Test Item Value Reference Range Interpretation Comments Segs (test code = Segs) 83.0 45.0-75.0 [place] [address]-12-06 09:53:13 Test Item Value Reference Range Interpretation Comments Bands (test code = 0.0 See_Comment [Automat ed message] The Bands) system which ge nerated this result transmit sheba reference range : <=11.0. The reference r christiano was not used to interpr et this result as edy l/abnormal. [place] [address]-12-06 09:53:13 Test Item Value Reference Range Interpretation Comments Lymphocytes (test code = Lymphocytes) 10.0 20.0-40.0 [place] [address]-12-06 09:53:13 Test Item Value Reference Range Interpretation Comments Monocytes (test code = Monocytes) 6.0 2.0-12.0 [place] [address]-12-06 09:53:13 Test Item Value Reference Range Interpretation Comments Basophils (test code = 1.0 See_Comment [Aut omated message] The Basophils) system which ge nerated this result tra nsmitted reference range : <=1.0. The reference r christiano was not used to int erpret this result as normal/abnormal . [place] [address]-12-06 09:53:13 Test Item Value Reference Range Interpretation Comments Atypical Lymphs (test code = Atypical 0.0 Lymphs) [address]12-06 09:53:13 Test Item Value Reference Range Interpretation Comments RBC Morph (test code = Normal (09/05/20 3:53 RBC Morph) AM) [place] [address]-12-06 09:53:13 Test Item Value Reference Range Interpretation Comments Plt Morph (test code = Normal (09/05/20 3:53 Plt Morph) AM) [place] 678380-12-06 09:53:13 Test Item Value Reference Range Interpretation Comments Magnesium Lvl (test code = Magnesium 2.2 1.8-2.4 Lvl) [place] [address]-12-06 09:53:13 Test Item Value Reference Range Interpretation Comments Phosphorus (test code = Phosphorus) 2.9 2.5-4.5 [place] [address]-12-06 09:53:13 Test Item Value Reference Range Interpretation Comments Glucose Lvl (test code = Glucose Lvl) 102 70-99 [place] [address]-12-06 09:53:13 Test Item Value Reference Range Interpretation Comments BUN (test code = BUN) 17 7-22 [place] [address]-12-06 09:53:13 Test Item Value Reference Range Interpretation Comments Creatinine Lvl (test code = Creatinine 1.51 0.50-1.40 Lvl) [place] 678380-12-06 09:53:13 Test Item Value Reference Range Interpretation Comments Sodium Lvl (test code = Sodium Lvl) 140 135-145 [place] 678380-12-06 09:53:13 Test Item Value Reference Range Interpretation Comments Potassium Lvl (test code = Potassium 3.5 3.5-5.1 Lvl) [place] 678380-12-06 09:53:13 Test Item Value Reference Range Interpretation Comments Chloride Lvl (test code = Chloride Lvl) 106 95-109 [place] [address]-12-06 09:53:13 Test Item Value Reference Range Interpretation Comments CO2 (test code = CO2) 29 24-32 [address]12-06 09:53:13 Test Item Value Reference Range Interpretation Comments Calcium Lvl (test code = Calcium Lvl) 8.3 8.5-10.5 [place] [address]-12-06 09:53:13 Test Item Value Reference Range Interpretation Comments AGAP (test code = AGAP) 8.5 10.0-20.0 [place] 678380-12-06 09:53:13 Test Item Value Reference Range Interpretation Comments eGFR (test code = eGFR) 33 [place] [address]-12-06 09:53:13 Test Item Value Reference Range Interpretation Comments WBC (test code = WBC) 8.7 3.7-10.4 [place] [address]-12-06 09:53:13 Test Item Value Reference Range Interpretation Comments RBC (test code = RBC) 3.96 4.20-5.40 [place] [address]-12-06 09:53:13 Test Item Value Reference Range Interpretation Comments Hgb (test code = Hgb) 10.7 12.0-16.0 [address]12-06 09:53:13 Test Item Value Reference Range Interpretation Comments Hct (test code = Hct) 32.8 36.0-48.0 [place] [address]-12-06 09:53:13 Test Item Value Reference Range Interpretation Comments MCV (test code = MCV) 83.0 80.0-98.0 [place] [address]-12-06 09:53:13 Test Item Value Reference Range Interpretation Comments MCH (test code = MCH) 26.9 pg 27.0-31.0 [place] [address]-12-06 09:53:13 Test Item Value Reference Range Interpretation Comments MCHC (test code = MCHC) 32.4 32.0-36.0 [place] [address]-12-06 09:53:13 Test Item Value Reference Range Interpretation Comments RDW (test code = RDW) 16.5 11.5-14.5 [place] [address]-12-06 09:53:13 Test Item Value Reference Range Interpretation Comments Platelet (test code = Platelet) 157 133-450 [place] [address]-12-06 09:53:13 Test Item Value Reference Range Interpretation Comments MPV (test code = MPV) 7.5 7.4-10.4 [place] [address]-12-06 09:53:13 Test Item Value Reference Range Interpretation Comments Neutrophils # (test code = Neutrophils 7.2 1.5-8.1 #) [place] [address]-12-06 09:53:13 Test Item Value Reference Range Interpretation Comments Lymphocytes # (test code = Lymphocytes 0.9 1.0-5.5 #) [place] [address]-12-06 09:53:13 Test Item Value Reference Range Interpretation Comments Monocytes # (test code 0.5 See_Comment [Aut omated message] The = Monocytes #) system which generated this result tra nsmitted reference range : <=0.8. The reference r christiano was not used to int erpret this result as normal/abnormal . [place] [address]-12-06 09:53:13 Test Item Value Reference Range Interpretation Comments Basophils # (test code 0.1 See_Comment [Aut omated message] The = Basophils #) system which generated this result tra nsmitted reference range : <=0.2. The reference r christiano was not used to int erpret this result as normal/abnormal . [place] [address]-12-06 09:53:13 Test Item Value Reference Range Interpretation Comments Segs (test code = Segs) 83.0 45.0-75.0 [place] [address]-12-06 09:53:13 Test Item Value Reference Range Interpretation Comments Bands (test code = 0.0 See_Comment [Automat ed message] The Bands) system which ge nerated this result transmit sheba reference range : <=11.0. The reference r christiano was not used to interpr et this result as edy l/abnormal. [place] [address]-12-06 09:53:13 Test Item Value Reference Range Interpretation Comments Lymphocytes (test code = Lymphocytes) 10.0 20.0-40.0 [place] [address]-12-06 09:53:13 Test Item Value Reference Range Interpretation Comments Monocytes (test code = Monocytes) 6.0 2.0-12.0 [place] [address]-12-06 09:53:13 Test Item Value Reference Range Interpretation Comments Basophils (test code = 1.0 See_Comment [Aut omated message] The Basophils) system which ge nerated this result tra nsmitted reference range : <=1.0. The reference r christiano was not used to int erpret this result as normal/abnormal . [address]12-06 09:53:13 Test Item Value Reference Range Interpretation Comments Atypical Lymphs (test code = Atypical 0.0 Lymphs) [address]12-06 09:53:13 Test Item Value Reference Range Interpretation Comments RBC Morph (test code = Normal (09/05/20 3:53 RBC Morph) AM) [address]12-06 09:53:13 Test Item Value Reference Range Interpretation Comments Plt Morph (test code = Normal (09/05/20 3:53 Plt Morph) AM) [place] [address]-12-06 09:53:13 Test Item Value Reference Range Interpretation Comments Magnesium Lvl (test code = Magnesium 2.2 1.8-2.4 Lvl) [place] [address]-12-06 09:53:13 Test Item Value Reference Range Interpretation Comments Phosphorus (test code = Phosphorus) 2.9 2.5-4.5 [place] [address]-12-06 09:53:13 Test Item Value Reference Range Interpretation Comments Glucose Lvl (test code = Glucose Lvl) 102 70-99 [place] [address]-12-06 09:53:13 Test Item Value Reference Range Interpretation Comments BUN (test code = BUN) 17 7-22 [place] [address]-12-06 09:53:13 Test Item Value Reference Range Interpretation Comments Creatinine Lvl (test code = Creatinine 1.51 0.50-1.40 Lvl) [place] 678380-12-06 09:53:13 Test Item Value Reference Range Interpretation Comments Sodium Lvl (test code = Sodium Lvl) 140 135-145 [place] 678380-12-06 09:53:13 Test Item Value Reference Range Interpretation Comments Potassium Lvl (test code = Potassium 3.5 3.5-5.1 Lvl) [place] 678380-12-06 09:53:13 Test Item Value Reference Range Interpretation Comments Chloride Lvl (test code = Chloride Lvl) 106 95-109 [address]12-06 09:53:13 Test Item Value Reference Range Interpretation Comments CO2 (test code = CO2) 29 24-32 [place] [address]-12-06 09:53:13 Test Item Value Reference Range Interpretation Comments Calcium Lvl (test code = Calcium Lvl) 8.3 8.5-10.5 [place] [address]-12-06 09:53:13 Test Item Value Reference Range Interpretation Comments AGAP (test code = AGAP) 8.5 10.0-20.0 [place] [address]-12-06 09:53:13 Test Item Value Reference Range Interpretation Comments eGFR (test code = eGFR) 33 [place] [address]-12-06 09:53:13 Test Item Value Reference Range Interpretation Comments WBC (test code = WBC) 8.7 3.7-10.4 [place] [address]-12-06 09:53:13 Test Item Value Reference Range Interpretation Comments RBC (test code = RBC) 3.96 4.20-5.40 [place] [address]-12-06 09:53:13 Test Item Value Reference Range Interpretation Comments Hgb (test code = Hgb) 10.7 12.0-16.[address]12-06 09:53:13 Test Item Value Reference Range Interpretation Comments Hct (test code = Hct) 32.8 36.0-48.0 [address]12-06 09:53:13 Test Item Value Reference Range Interpretation Comments MCV (test code = MCV) 83.0 80.0-98.0 [place] [address]-12-06 09:53:13 Test Item Value Reference Range Interpretation Comments MCH (test code = MCH) 26.9 pg 27.0-31.0 [place] 222910-12-06 09:53:13 Test Item Value Reference Range Interpretation Comments MCHC (test code = MCHC) 32.4 32.0-36.0 [place] 222910-12-06 09:53:13 Test Item Value Reference Range Interpretation Comments RDW (test code = RDW) 16.5 11.5-14.5 [place] 222910-12-06 09:53:13 Test Item Value Reference Range Interpretation Comments Platelet (test code = Platelet) 157 133-450 [place] 222910-12-06 09:53:13 Test Item Value Reference Range Interpretation Comments MPV (test code = MPV) 7.5 7.4-10.4 [place] 222910-12-06 09:53:13 Test Item Value Reference Range Interpretation Comments Neutrophils # (test code = Neutrophils 7.2 1.5-8.1 #) [facility]5601[facility]77-[facility] 09:53:13 Test Item Value Reference Range Interpretation Comments Lymphocytes # (test code = Lymphocytes 0.9 1.0-5.5 #) [facility]ClvttbjIADUWENEYU9917-27-44 09:53:13 Test Item Value Reference Range Interpretation Comments Monocytes # (test code 0.5 See_Comment [Aut omated message] The = Monocytes #) system which generated this result tra nsmitted reference range : <=0.8. The reference r christiano was not used to int erpret this result as normal/abnormal . [place] 222910-12-06 09:53:13 Test Item Value Reference Range Interpretation Comments Basophils # (test code 0.1 See_Comment [Aut omated message] The = Basophils #) system which generated this result tra nsmitted reference range : <=0.2. The reference r christiano was not used to int erpret this result as normal/abnormal . [facility] CenterGyzicquBJCJKESMGF0652-18-25 09:53:13 Test Item Value Reference Range Interpretation Comments Segs (test code = Segs) 83.0 45.0-75.0 [place] 222910-12-06 09:53:13 Test Item Value Reference Range Interpretation Comments Bands (test code = 0.0 See_Comment [Automat ed message] The Bands) system which ge nerated this result transmit sheba reference range : <=11.0. The reference r christiano was not used to interpr et this result as edy l/abnormal. [facility] CenterKbhyjwuYIPIKIDWHV2888-65-44 09:53:13 Test Item Value Reference Range Interpretation Comments Lymphocytes (test code = Lymphocytes) 10.0 20.0-40.0 [place] 222910-12-06 09:53:13 Test Item Value Reference Range Interpretation Comments Monocytes (test code = Monocytes) 6.0 2.0-12.0 [place] [address]-12-06 09:53:13 Test Item Value Reference Range Interpretation Comments Basophils (test code = 1.0 See_Comment [Aut omated message] The Basophils) system which ge nerated this result tra nsmitted reference range : <=1.0. The reference r christiano was not used to int erpret this result as normal/abnormal . [facility] CenterIdmjkivDLBJKPQHJE6235-83-59 09:53:13 Test Item Value Reference Range Interpretation Comments Atypical Lymphs (test code = Atypical 0.0 Lymphs) [place] [address]-12-06 09:53:13 Test Item Value Reference Range Interpretation Comments RBC Morph (test code = Normal (09/05/20 3:53 RBC Morph) AM) [place] [address]-12-06 09:53:13 Test Item Value Reference Range Interpretation Comments Plt Morph (test code = Normal (09/05/20 3:53 Plt Morph) AM) [facility]2020-12-06 09:53:13 Test Item Value Reference Range Interpretation Comments Magnesium Lvl (test code = Magnesium 2.2 1.8-2.4 Lvl) [place] 678380-12-06 09:53:13 Test Item Value Reference Range Interpretation Comments Phosphorus (test code = Phosphorus) 2.9 2.5-4.5 [place] [address]-12-06 09:53:13 Test Item Value Reference Range Interpretation Comments Glucose Lvl (test code = Glucose Lvl) 102 70-99 [place] [address]-12-06 09:53:13 Test Item Value Reference Range Interpretation Comments BUN (test code = BUN) 17 7-[address]12-06 09:53:13 Test Item Value Reference Range Interpretation Comments Creatinine Lvl (test code = Creatinine 1.51 0.50-1.40 Lvl) [address]12-06 09:53:13 Test Item Value Reference Range Interpretation Comments Sodium Lvl (test code = Sodium Lvl) 140 135-145 [address]12-06 09:53:13 Test Item Value Reference Range Interpretation Comments Potassium Lvl (test code = Potassium 3.5 3.5-5.1 Lvl) [address]12-06 09:53:13 Test Item Value Reference Range Interpretation Comments Chloride Lvl (test code = Chloride Lvl) 106 95-109 [address]12-06 09:53:13 Test Item Value Reference Range Interpretation Comments CO2 (test code = CO2) 29 24-32 [address]12-06 09:53:13 Test Item Value Reference Range Interpretation Comments Calcium Lvl (test code = Calcium Lvl) 8.3 8.5-10.5 [place] [address]-12-06 09:53:13 Test Item Value Reference Range Interpretation Comments AGAP (test code = AGAP) 8.5 10.0-20.0 [address]12-06 09:53:13 Test Item Value Reference Range Interpretation Comments eGFR (test code = eGFR) 33 [place] [address]-12-06 09:53:13 Test Item Value Reference Range Interpretation Comments WBC (test code = WBC) 8.7 3.7-10.4 [place] [address]-12-06 09:53:13 Test Item Value Reference Range Interpretation Comments RBC (test code = RBC) 3.96 4.20-5.[address]12-06 09:53:13 Test Item Value Reference Range Interpretation Comments Hgb (test code = Hgb) 10.7 12.0-16.0 [address]12-06 09:53:13 Test Item Value Reference Range Interpretation Comments Hct (test code = Hct) 32.8 36.0-48.0 [address]12-06 09:53:13 Test Item Value Reference Range Interpretation Comments MCV (test code = MCV) 83.0 80.0-98.0 [place] [address]-12-06 09:53:13 Test Item Value Reference Range Interpretation Comments MCH (test code = MCH) 26.9 pg 27.0-31.0 [facility] CenterTqkxuavMAWHDUUYQJ9912-77-33 09:53:13 Test Item Value Reference Range Interpretation Comments MCHC (test code = MCHC) 32.4 32.0-36.0 [place] 222910-12-06 09:53:13 Test Item Value Reference Range Interpretation Comments RDW (test code = RDW) 16.5 11.5-14.5 [place] [address]-12-06 09:53:13 Test Item Value Reference Range Interpretation Comments Platelet (test code = Platelet) 157 133-450 [place] [address]-12-06 09:53:13 Test Item Value Reference Range Interpretation Comments MPV (test code = MPV) 7.5 7.4-10.4 [place] 222910-12-06 09:53:13 Test Item Value Reference Range Interpretation Comments Neutrophils # (test code = Neutrophils 7.2 1.5-8.1 #) [facility] CenterGdfephrEKDFZCTQHM7240-33-73 09:53:13 Test Item Value Reference Range Interpretation Comments Lymphocytes # (test code = Lymphocytes 0.9 1.0-5.5 #) [facility] CenterAhdntgfVFYLYMWEOP1139-94-26 09:53:13 Test Item Value Reference Range Interpretation Comments Monocytes # (test code 0.5 See_Comment [Aut omated message] The = Monocytes #) system which generated this result tra nsmitted reference range : <=0.8. The reference r christiano was not used to int erpret this result as normal/abnormal . [place] [address]-12-06 09:53:13 Test Item Value Reference Range Interpretation Comments Basophils # (test code 0.1 See_Comment [Aut omated message] The = Basophils #) system which generated this result tra nsmitted reference range : <=0.2. The reference r christiano was not used to int erpret this result as normal/abnormal . [place] [address]-12-06 09:53:13 Test Item Value Reference Range Interpretation Comments Segs (test code = Segs) 83.0 45.0-75.0 [place] [address]-12-06 09:53:13 Test Item Value Reference Range Interpretation Comments Bands (test code = 0.0 See_Comment [Automat ed message] The Bands) system which ge nerated this result transmit sheba reference range : <=11.0. The reference r christiano was not used to interpr et this result as edy l/abnormal. [place] 222910-12-06 09:53:13 Test Item Value Reference Range Interpretation Comments Lymphocytes (test code = Lymphocytes) 10.0 20.0-40.0 [place] [address]-12-06 09:53:13 Test Item Value Reference Range Interpretation Comments Monocytes (test code = Monocytes) 6.0 2.0-12.0 [place] [address]-12-06 09:53:13 Test Item Value Reference Range Interpretation Comments Basophils (test code = 1.0 See_Comment [Aut omated message] The Basophils) system which ge nerated this result tra nsmitted reference range : <=1.0. The reference r christiano was not used to int erpret this result as normal/abnormal . [facility] CenterKapugdfYHCDANJUGF3790-71-38 09:53:13 Test Item Value Reference Range Interpretation Comments Atypical Lymphs (test code = Atypical 0.0 Lymphs) [place] [address]-12-06 09:53:13 Test Item Value Reference Range Interpretation Comments RBC Morph (test code = Normal (09/05/20 3:53 RBC Morph) AM) [place] 222910-12-06 09:53:13 Test Item Value Reference Range Interpretation Comments Plt Morph (test code = Normal (09/05/20 3:53 Plt Morph) AM) [place] 678380-12-06 09:53:13 Test Item Value Reference Range Interpretation Comments Magnesium Lvl (test code = Magnesium 2.2 1.8-2.4 Lvl) [place] 678380-12-06 09:53:13 Test Item Value Reference Range Interpretation Comments Phosphorus (test code = Phosphorus) 2.9 2.5-4.5 [place] 678380-12-06 09:53:13 Test Item Value Reference Range Interpretation Comments Glucose Lvl (test code = Glucose Lvl) 102 70-99 [place] 678380-12-06 09:53:13 Test Item Value Reference Range Interpretation Comments BUN (test code = BUN) 17 7-22 [place] 678380-12-06 09:53:13 Test Item Value Reference Range Interpretation Comments Creatinine Lvl (test code = Creatinine 1.51 0.50-1.40 Lvl) [place] [address]-12-06 09:53:13 Test Item Value Reference Range Interpretation Comments Sodium Lvl (test code = Sodium Lvl) 140 135-145 [place] [address]-12-06 09:53:13 Test Item Value Reference Range Interpretation Comments Potassium Lvl (test code = Potassium 3.5 3.5-5.1 Lvl) [place] 678380-12-06 09:53:13 Test Item Value Reference Range Interpretation Comments Chloride Lvl (test code = Chloride Lvl) 106 95-109 [place] 678380-12-06 09:53:13 Test Item Value Reference Range Interpretation Comments CO2 (test code = CO2) 29 24-32 [place] [address]-12-06 09:53:13 Test Item Value Reference Range Interpretation Comments Calcium Lvl (test code = Calcium Lvl) 8.3 8.5-10.5 [place] 678380-12-06 09:53:13 Test Item Value Reference Range Interpretation Comments AGAP (test code = AGAP) 8.5 10.0-20.0 [place] [address]-12-06 09:53:13 Test Item Value Reference Range Interpretation Comments eGFR (test code = eGFR) 33 [place] [address]-12-06 09:53:13 Test Item Value Reference Range Interpretation Comments WBC (test code = WBC) 8.7 3.7-10.4 [place] [address]-12-06 09:53:13 Test Item Value Reference Range Interpretation Comments RBC (test code = RBC) 3.96 4.20-5.40 [place] [address]-12-06 09:53:13 Test Item Value Reference Range Interpretation Comments Hgb (test code = Hgb) 10.7 12.0-16.0 [place] [address]-12-06 09:53:13 Test Item Value Reference Range Interpretation Comments Hct (test code = Hct) 32.8 36.0-48.0 [address]12-06 09:53:13 Test Item Value Reference Range Interpretation Comments MCV (test code = MCV) 83.0 80.0-98.0 [address]12-06 09:53:13 Test Item Value Reference Range Interpretation Comments MCH (test code = MCH) 26.9 pg 27.0-31.0 [address]12-06 09:53:13 Test Item Value Reference Range Interpretation Comments MCHC (test code = MCHC) 32.4 32.0-36.0 [address]12-06 09:53:13 Test Item Value Reference Range Interpretation Comments RDW (test code = RDW) 16.5 11.5-14.5 [address]12-06 09:53:13 Test Item Value Reference Range Interpretation Comments Platelet (test code = Platelet) 157 133-450 [address]12-06 09:53:13 Test Item Value Reference Range Interpretation Comments MPV (test code = MPV) 7.5 7.4-10.4 [place] [address]-12-06 09:53:13 Test Item Value Reference Range Interpretation Comments Neutrophils # (test code = Neutrophils 7.2 1.5-8.1 #) [place] [address]-12-06 09:53:13 Test Item Value Reference Range Interpretation Comments Lymphocytes # (test code = Lymphocytes 0.9 1.0-5.5 #) [place] [address]-12-06 09:53:13 Test Item Value Reference Range Interpretation Comments Monocytes # (test code 0.5 See_Comment [Aut omated message] The = Monocytes #) system which generated this result tra nsmitted reference range : <=0.8. The reference r christiano was not used to int erpret this result as normal/abnormal . [address]12-06 09:53:13 Test Item Value Reference Range Interpretation Comments Basophils # (test code 0.1 See_Comment [Aut omated message] The = Basophils #) system which generated this result tra nsmitted reference range : <=0.2. The reference r christiano was not used to int erpret this result as normal/abnormal . [address]12-06 09:53:13 Test Item Value Reference Range Interpretation Comments Segs (test code = Segs) 83.0 45.0-75.0 [facility] CenterCohwuirTFDNNURUBU1242-92-83 09:53:13 Test Item Value Reference Range Interpretation Comments Bands (test code = 0.0 See_Comment [Automat ed message] The Bands) system which ge nerated this result transmit sheba reference range : <=11.0. The reference r christiano was not used to interpr et this result as edy l/abnormal. [facility] CenterWmhkmgfYURETMPGYN4101-73-94 09:53:13 Test Item Value Reference Range Interpretation Comments Lymphocytes (test code = Lymphocytes) 10.0 20.0-40.0 [facility] CenterBuddswsWLUNMEXZMJ1891-94-80 09:53:13 Test Item Value Reference Range Interpretation Comments Monocytes (test code = Monocytes) 6.0 2.0-12.0 [facility] CenterZhudehbKKHAPJGTFX4767-53-34 09:53:13 Test Item Value Reference Range Interpretation Comments Basophils (test code = 1.0 See_Comment [Aut omated message] The Basophils) system which ge nerated this result tra nsmitted reference range : <=1.0. The reference r christiano was not used to int erpret this result as normal/abnormal . [facility] CenterKuprrpdLCUCGTDOJD3999-62-14 09:53:13 Test Item Value Reference Range Interpretation Comments Atypical Lymphs (test code = Atypical 0.0 Lymphs) [place] 222910-12-06 09:53:13 Test Item Value Reference Range Interpretation Comments RBC Morph (test code = Normal (09/05/20 3:53 RBC Morph) AM) [place] [address]-12-06 09:53:13 Test Item Value Reference Range Interpretation Comments Plt Morph (test code = Normal (09/05/20 3:53 Plt Morph) AM) [facility]2020-12-06 09:53:13 Test Item Value Reference Range Interpretation Comments Magnesium Lvl (test code = Magnesium 2.2 1.8-2.4 Lvl) [place] 678380-12-06 09:53:13 Test Item Value Reference Range Interpretation Comments Phosphorus (test code = Phosphorus) 2.9 2.5-4.5 [place] 678380-12-06 09:53:13 Test Item Value Reference Range Interpretation Comments Glucose Lvl (test code = Glucose Lvl) 102 70-99 [place] [address]-12-06 09:53:13 Test Item Value Reference Range Interpretation Comments BUN (test code = BUN) 17 7-22 [place] [address]-12-06 09:53:13 Test Item Value Reference Range Interpretation Comments Creatinine Lvl (test code = Creatinine 1.51 0.50-1.40 Lvl) [place] [address]-12-06 09:53:13 Test Item Value Reference Range Interpretation Comments Sodium Lvl (test code = Sodium Lvl) 140 135-145 [address]12-06 09:53:13 Test Item Value Reference Range Interpretation Comments Potassium Lvl (test code = Potassium 3.5 3.5-5.1 Lvl) [place] 678380-12-06 09:53:13 Test Item Value Reference Range Interpretation Comments Chloride Lvl (test code = Chloride Lvl) 106 95-109 [place] [address]-12-06 09:53:13 Test Item Value Reference Range Interpretation Comments CO2 (test code = CO2) 29 24-32 [place] [address]-12-06 09:53:13 Test Item Value Reference Range Interpretation Comments Calcium Lvl (test code = Calcium Lvl) 8.3 8.5-10.5 [place] 678380-12-06 09:53:13 Test Item Value Reference Range Interpretation Comments AGAP (test code = AGAP) 8.5 10.0-20.0 [place] [address]-12-06 09:53:13 Test Item Value Reference Range Interpretation Comments eGFR (test code = eGFR) 33 [place] [address]-12-06 09:53:13 Test Item Value Reference Range Interpretation Comments WBC (test code = WBC) 8.7 3.7-10.4 [place] [address]-12-06 09:53:13 Test Item Value Reference Range Interpretation Comments RBC (test code = RBC) 3.96 4.20-5.40 [place] [address]-12-06 09:53:13 Test Item Value Reference Range Interpretation Comments Hgb (test code = Hgb) 10.7 12.0-16.0 [place] [address]-12-06 09:53:13 Test Item Value Reference Range Interpretation Comments Hct (test code = Hct) 32.8 36.0-48.0 [address]12-06 09:53:13 Test Item Value Reference Range Interpretation Comments MCV (test code = MCV) 83.0 80.0-98.0 [address]12-06 09:53:13 Test Item Value Reference Range Interpretation Comments MCH (test code = MCH) 26.9 pg 27.0-31.0 [address]12-06 09:53:13 Test Item Value Reference Range Interpretation Comments MCHC (test code = MCHC) 32.4 32.0-36.0 [place] [address]-12-06 09:53:13 Test Item Value Reference Range Interpretation Comments RDW (test code = RDW) 16.5 11.5-14.5 [address]12-06 09:53:13 Test Item Value Reference Range Interpretation Comments Platelet (test code = Platelet) 157 133-450 [place] [address]-12-06 09:53:13 Test Item Value Reference Range Interpretation Comments MPV (test code = MPV) 7.5 7.4-10.4 [address]12-06 09:53:13 Test Item Value Reference Range Interpretation Comments Neutrophils # (test code = Neutrophils 7.2 1.5-8.1 #) [address]12-06 09:53:13 Test Item Value Reference Range Interpretation Comments Lymphocytes # (test code = Lymphocytes 0.9 1.0-5.5 #) [address]12-06 09:53:13 Test Item Value Reference Range Interpretation Comments Monocytes # (test code 0.5 See_Comment [Aut omated message] The = Monocytes #) system which generated this result tra nsmitted reference range : <=0.8. The reference r christiano was not used to int erpret this result as normal/abnormal . [place] [address]-12-06 09:53:13 Test Item Value Reference Range Interpretation Comments Basophils # (test code 0.1 See_Comment [Aut omated message] The = Basophils #) system which generated this result tra nsmitted reference range : <=0.2. The reference r christiano was not used to int erpret this result as normal/abnormal . [facility] CenterAezxrzcRBECNNTGRA9990-77-25 09:53:13 Test Item Value Reference Range Interpretation Comments Segs (test code = Segs) 83.0 45.0-75.0 [place] 222910-12-06 09:53:13 Test Item Value Reference Range Interpretation Comments Bands (test code = 0.0 See_Comment [Automat ed message] The Bands) system which ge nerated this result transmit shbea reference range : <=11.0. The reference r christiano was not used to interpr et this result as edy l/abnormal. [facility] CenterPvwgqobMVZVKXIFMP6653-52-46 09:53:13 Test Item Value Reference Range Interpretation Comments Lymphocytes (test code = Lymphocytes) 10.0 20.0-40.0 [place] [address]-12-06 09:53:13 Test Item Value Reference Range Interpretation Comments Monocytes (test code = Monocytes) 6.0 2.0-12.0 [place] [address]-12-06 09:53:13 Test Item Value Reference Range Interpretation Comments Basophils (test code = 1.0 See_Comment [Aut omated message] The Basophils) system which ge nerated this result tra nsmitted reference range : <=1.0. The reference r christiano was not used to int erpret this result as normal/abnormal . [facility] CenterNsudqjeGIWIHFVOVR6469-93-77 09:53:13 Test Item Value Reference Range Interpretation Comments Atypical Lymphs (test code = Atypical 0.0 Lymphs) [place] 222910-12-06 09:53:13 Test Item Value Reference Range Interpretation Comments RBC Morph (test code = Normal (09/05/20 3:53 RBC Morph) AM) [place] 222910-12-06 09:53:13 Test Item Value Reference Range Interpretation Comments Plt Morph (test code = Normal (09/05/20 3:53 Plt Morph) AM) [place] 125300-12-06 09:53:00 Test Item Value Reference Range Interpretation Comments Coronavirus (COVID-19) Not Detected (09/05/20 JONATHAN (test code = 3:53 AM) Coronavirus (COVID-19) JONATHAN) [place] 125300-12-06 09:53:00 Test Item Value Reference Range Interpretation Comments Coronavirus (COVID-19) Not Detected (09/05/20 JONATHAN (test code = 3:53 AM) Coronavirus (COVID-19) JONATHAN) [place] [address]-12-06 09:53:00 Test Item Value Reference Range Interpretation Comments Coronavirus (COVID-19) Not Detected (09/05/20 JONATHAN (test code = 3:53 AM) Coronavirus (COVID-19) JONATHAN) [place] [address]-12-06 09:53:00 Test Item Value Reference Range Interpretation Comments Coronavirus (COVID-19) Not Detected (09/05/20 JONATHAN (test code = 3:53 AM) Coronavirus (COVID-19) JONATHAN) [place] [address]-12-06 09:53:00 Test Item Value Reference Range Interpretation Comments Coronavirus (COVID-19) Not Detected (09/05/20 JONATHAN (test code = 3:53 AM) Coronavirus (COVID-19) JONATHAN) [place] [address]-12-06 09:53:00 Test Item Value Reference Range Interpretation Comments Coronavirus (COVID-19) Not Detected (09/05/20 JONATHAN (test code = 3:53 AM) Coronavirus (COVID-19) JONATHAN) [place] [address]-12-06 09:53:00 Test Item Value Reference Range Interpretation Comments Coronavirus (COVID-19) Not Detected (09/05/20 JONATHAN (test code = 3:53 AM) Coronavirus (COVID-19) JONATHAN) [place] [address]-12-06 09:53:00 Test Item Value Reference Range Interpretation Comments Coronavirus (COVID-19) Not Detected (09/05/20 JONATHAN (test code = 3:53 AM) Coronavirus (COVID-19) JONATHAN) [place] [address]-12-06 09:53:00 Test Item Value Reference Range Interpretation Comments Coronavirus (COVID-19) Not Detected (09/05/20 JONATHAN (test code = 3:53 AM) Coronavirus (COVID-19) JONATHAN) [place] [address]-12-06 09:53:00 Test Item Value Reference Range Interpretation Comments Coronavirus (COVID-19) Not Detected (09/05/20 JONATHAN (test code = 3:53 AM) Coronavirus (COVID-19) J[facility]ATHAN) [id number] 09:53:00 Test Item Value Reference Range Interpretation Comments Coronavirus (COVID-19) Not Detected (09/05/20 JONATHAN (test code = 3:53 AM) Coronavirus (COVID-19) JONATHAN) [facility] CenterTntnmtwHZIKVQMKLT3295-98-10 09:53:00 Test Item Value Reference Range Interpretation Comments Coronavirus (COVID-19) Not Detected (09/05/20 JONATHAN (test code = 3:53 AM) Coronavirus (COVID-19) JONATHAN) [facility] CenterNkupsxlQBXIPPCDCO7924-06-86 09:53:00 Test Item Value Reference Range Interpretation Comments Coronavirus (COVID-19) Not Detected (09/05/20 JONATHAN (test code = 3:53 AM) Coronavirus (COVID-19) JONATHAN) [facility] [id number] 04:34:00 Test Item Value Reference Range Interpretation Comments Troponin-I (test code no gt See_Comment [Auto mated message] The = Troponin-I) system which g enerated this result transmit sheba reference range : <=0.40. The reference r christiano was not used to interpr et this result as edy l/abnormal. [facility] [id number] 04:34:00 Test Item Value Reference Range Interpretation Comments Glucose Lvl (test code = Glucose Lvl) 125 70-99 [facility] [id number] 04:34:00 Test Item Value Reference Range Interpretation Comments BUN (test code = BUN) 17 7-22 [facility] [id number] 04:34:00 Test Item Value Reference Range Interpretation Comments Creatinine Lvl (test code = Creatinine 1.51 0.50-1.40 Lvl) [facility] [id number] 04:34:00 Test Item Value Reference Range Interpretation Comments Sodium Lvl (test code = Sodium Lvl) 142 135-145 [facility] [id number] 04:34:00 Test Item Value Reference Range Interpretation Comments Potassium Lvl (test code = Potassium 4.0 3.5-5.1 Lvl) [facility] [id number] 04:34:00 Test Item Value Reference Range Interpretation Comments Chloride Lvl (test code = Chloride Lvl) 108 95-109 [facility]2020-12-06 04:34:00 Test Item Value Reference Range Interpretation Comments CO2 (test code = CO2) 30 24-32 [place] 678380-12-06 04:34:00 Test Item Value Reference Range Interpretation Comments Calcium Lvl (test code = Calcium Lvl) 7.8 8.5-10.5 [place] 678380-12-06 04:34:00 Test Item Value Reference Range Interpretation Comments AGAP (test code = AGAP) 8.0 10.0-20.0 [place] 678380-12-06 04:34:00 Test Item Value Reference Range Interpretation Comments eGFR (test code = eGFR) 33 [place] 222910-12-06 04:34:00 Test Item Value Reference Range Interpretation Comments WBC X 10x3 (test code = WBC X 10x3) 9.7 3.7-10.4 [place] 222910-12-06 04:34:00 Test Item Value Reference Range Interpretation Comments RBC X 10x6 (test code = RBC X 10x6) 3.96 4.20-5.40 [place] [address]-12-06 04:34:00 Test Item Value Reference Range Interpretation Comments Hgb (test code = Hgb) 10.6 12.0-16.0 [place] [address]-12-06 04:34:00 Test Item Value Reference Range Interpretation Comments Hct (test code = Hct) 32.6 36.0-48.0 [place] 222910-12-06 04:34:00 Test Item Value Reference Range Interpretation Comments MCV (test code = MCV) 82.3 80.0-98.0 [place] [address]-12-06 04:34:00 Test Item Value Reference Range Interpretation Comments MCH (test code = MCH) 26.6 pg 27.0-31.0 [place] [address]-12-06 04:34:00 Test Item Value Reference Range Interpretation Comments MCHC (test code = MCHC) 32.4 32.0-36.0 [place] [address]-12-06 04:34:00 Test Item Value Reference Range Interpretation Comments RDW (test code = RDW) 16.8 11.5-14.5 [place] 222910-12-06 04:34:00 Test Item Value Reference Range Interpretation Comments Platelet (test code = Platelet) 178 133-450 [place] 222910-12-06 04:34:00 Test Item Value Reference Range Interpretation Comments MPV (test code = MPV) 8.0 7.4-10.4 [place] 222910-12-06 04:34:00 Test Item Value Reference Range Interpretation Comments PT (test code = PT) 14.7 s 12.0-14.7 [place] [address]-12-06 04:34:00 Test Item Value Reference Range Interpretation Comments INR (test code = INR) 1.14 1 0.85-1.17 [place] 222910-12-06 04:34:00 Test Item Value Reference Range Interpretation Comments PTT (test code = PTT) 31.2 s 22.9-35.8 [place] [address]-12-06 04:34:00 Test Item Value Reference Range Interpretation Comments Segs (test code = Segs) 73.9 45.0-75.0 [place] 222910-12-06 04:34:00 Test Item Value Reference Range Interpretation Comments Lymphocytes (test code = Lymphocytes) 11.0 20.0-40.0 [place] 222910-12-06 04:34:00 Test Item Value Reference Range Interpretation Comments Monocytes (test code = Monocytes) 13.6 2.0-12.0 [place] 222910-12-06 04:34:00 Test Item Value Reference Range Interpretation Comments Eosinophils (test code = 0.7 See_Comment [A utomated message] The Eosinophils) system which ge nerated this result tra nsmitted reference range : <=4.0. The reference r christiano was not used to int erpret this result as normal/abnormal . [place] 222910-12-06 04:34:00 Test Item Value Reference Range Interpretation Comments Basophils (test code = 0.8 See_Comment [Aut omated message] The Basophils) system which ge nerated this result tra nsmitted reference range : <=1.0. The reference r christiano was not used to int erpret this result as normal/abnormal . [place] 222910-12-06 04:34:00 Test Item Value Reference Range Interpretation Comments Neutrophils # (test code = Neutrophils 7.2 1.5-8.1 #) [facility] CenterTfjudzfLIMTVLLOFX6588-34-44 04:34:00 Test Item Value Reference Range Interpretation Comments Lymphocytes # (test code = Lymphocytes 1.1 1.0-5.5 #) [facility] CenterCrbvxghNJNLECASPG8193-96-20 04:34:00 Test Item Value Reference Range Interpretation Comments Monocytes # (test code 1.3 See_Comment [Aut omated message] The = Monocytes #) system which generated this result tra nsmitted reference range : <=0.8. The reference r christiano was not used to int erpret this result as normal/abnormal . [facility] CenterErifjoaNQZONFLMGY2121-98-60 04:34:00 Test Item Value Reference Range Interpretation Comments Eosinophils # (test code 0.1 See_Comment [A utomated message] The = Eosinophils #) system whic h generated this result tra nsmitted reference range : <=0.5. The reference r christiano was not used to int erpret this result as normal/abnormal . [facility] CenterCafsucwGPPGKFNXTD7967-73-46 04:34:00 Test Item Value Reference Range Interpretation Comments Basophils # (test code 0.1 See_Comment [Aut omated message] The = Basophils #) system which generated this result tra nsmitted reference range : <=0.2. The reference r christiano was not used to int erpret this result as normal/abnormal . [facility] [id number] 04:34:00 Test Item Value Reference Range Interpretation Comments Troponin-I (test code no gt See_Comment [Auto mated message] The = Troponin-I) system which g enerated this result transmit sheba reference range : <=0.40. The reference r christiano was not used to interpr et this result as edy l/abnormal. [facility] [id number] 04:34:00 Test Item Value Reference Range Interpretation Comments Glucose Lvl (test code = Glucose Lvl) 125 70-99 [facility] [id number] 04:34:00 Test Item Value Reference Range Interpretation Comments BUN (test code = BUN) 17 7-22 [facility] [id number] 04:34:00 Test Item Value Reference Range Interpretation Comments Creatinine Lvl (test code = Creatinine 1.51 0.50-1.40 Lvl) [place] 678380-12-06 04:34:00 Test Item Value Reference Range Interpretation Comments Sodium Lvl (test code = Sodium Lvl) 142 135-145 [place] [address]-12-06 04:34:00 Test Item Value Reference Range Interpretation Comments Potassium Lvl (test code = Potassium 4.0 3.5-5.1 Lvl) [place] 678380-12-06 04:34:00 Test Item Value Reference Range Interpretation Comments Chloride Lvl (test code = Chloride Lvl) 108 95-109 [place] 678380-12-06 04:34:00 Test Item Value Reference Range Interpretation Comments CO2 (test code = CO2) 30 24-32 [place] 678380-12-06 04:34:00 Test Item Value Reference Range Interpretation Comments Calcium Lvl (test code = Calcium Lvl) 7.8 8.5-10.5 [place] 678380-12-06 04:34:00 Test Item Value Reference Range Interpretation Comments AGAP (test code = AGAP) 8.0 10.0-20.0 [place] 678380-12-06 04:34:00 Test Item Value Reference Range Interpretation Comments eGFR (test code = eGFR) 33 [place] 222910-12-06 04:34:00 Test Item Value Reference Range Interpretation Comments WBC X 10x3 (test code = WBC X 10x3) 9.7 3.7-10.4 [place] 222910-12-06 04:34:00 Test Item Value Reference Range Interpretation Comments RBC X 10x6 (test code = RBC X 10x6) 3.96 4.20-5.40 [place] 222910-12-06 04:34:00 Test Item Value Reference Range Interpretation Comments Hgb (test code = Hgb) 10.6 12.0-16.0 [place] [address]-12-06 04:34:00 Test Item Value Reference Range Interpretation Comments Hct (test code = Hct) 32.6 36.0-48.0 [place] [address]-12-06 04:34:00 Test Item Value Reference Range Interpretation Comments MCV (test code = MCV) 82.3 80.0-98.0 [facility] CenterUpcidjdBDPCPRHSXK5954-50-98 04:34:00 Test Item Value Reference Range Interpretation Comments MCH (test code = MCH) 26.6 pg 27.0-31.0 [facility] CenterHcajiptFTZZNRQVMN2831-05-64 04:34:00 Test Item Value Reference Range Interpretation Comments MCHC (test code = MCHC) 32.4 32.0-36.0 [facility] CenterYqgdlonLJRGLCJWLU6256-15-24 04:34:00 Test Item Value Reference Range Interpretation Comments RDW (test code = RDW) 16.8 11.5-14.5 [facility] CenterMzsyfqwCPESUNAHIW4857-89-28 04:34:00 Test Item Value Reference Range Interpretation Comments Platelet (test code = Platelet) 178 133-450 [facility] CenterTxbohglVFTMDCYYJI6309-85-65 04:34:00 Test Item Value Reference Range Interpretation Comments MPV (test code = MPV) 8.0 7.4-10.4 [facility] CenterZapaudkFKROKMRDDX6365-88-55 04:34:00 Test Item Value Reference Range Interpretation Comments PT (test code = PT) 14.7 s 12.0-14.7 [facility] CenterWuabrhgCIWIGDPTMX7673-99-40 04:34:00 Test Item Value Reference Range Interpretation Comments INR (test code = INR) 1.14 1 0.85-1.17 [facility] CenterUhibsnmDMLKOAPOOV4406-24-27 04:34:00 Test Item Value Reference Range Interpretation Comments PTT (test code = PTT) 31.2 s 22.9-35.8 [place] 222910-12-06 04:34:00 Test Item Value Reference Range Interpretation Comments Segs (test code = Segs) 73.9 45.0-75.0 [place] 222910-12-06 04:34:00 Test Item Value Reference Range Interpretation Comments Lymphocytes (test code = Lymphocytes) 11.0 20.0-40.0 [place] 222910-12-06 04:34:00 Test Item Value Reference Range Interpretation Comments Monocytes (test code = Monocytes) 13.6 2.0-12.0 [facility] CenterRorrcnnKVDFKLLZVQ4477-11-24 04:34:00 Test Item Value Reference Range Interpretation Comments Eosinophils (test code = 0.7 See_Comment [A utomated message] The Eosinophils) system which ge nerated this result tra nsmitted reference range : <=4.0. The reference r christiano was not used to int erpret this result as normal/abnormal . [facility] GladwinJalgmcdUEWQWONKWH7575-66-04 04:34:00 Test Item Value Reference Range Interpretation Comments Basophils (test code = 0.8 See_Comment [Aut omated message] The Basophils) system which ge nerated this result tra nsmitted reference range : <=1.0. The reference r christiano was not used to int erpret this result as normal/abnormal . [facility] GladwinOrdjyfxTMYHEOWCVH0921-53-55 04:34:00 Test Item Value Reference Range Interpretation Comments Neutrophils # (test code = Neutrophils 7.2 1.5-8.1 #) [facility] GladwinOyhmtbwDRQFEACUWZ8801-96-43 04:34:00 Test Item Value Reference Range Interpretation Comments Lymphocytes # (test code = Lymphocytes 1.1 1.0-5.5 #) [facility] CenterJzbxdzrNASXZMEQDQ2576-91-10 04:34:00 Test Item Value Reference Range Interpretation Comments Monocytes # (test code 1.3 See_Comment [Aut omated message] The = Monocytes #) system which generated this result tra nsmitted reference range : <=0.8. The reference r christiano was not used to int erpret this result as normal/abnormal . [facility] CenterBmydoawNJBZYLMTHD8295-32-78 04:34:00 Test Item Value Reference Range Interpretation Comments Eosinophils # (test code 0.1 See_Comment [A utomated message] The = Eosinophils #) system wh h generated this result tra nsmitted reference range : <=0.5. The reference r christiano was not used to int erpret this result as normal/abnormal . [facility] CenterSmersknVIHTLNRRDY1856-86-03 04:34:00 Test Item Value Reference Range Interpretation Comments Basophils # (test code 0.1 See_Comment [Aut omated message] The = Basophils #) system which generated this result tra nsmitted reference range : <=0.2. The reference r christiano was not used to int erpret this result as normal/abnormal . [facility] [id number] 04:34:00 Test Item Value Reference Range Interpretation Comments Troponin-I (test code no gt See_Comment [Auto mated message] The = Troponin-I) system which g enerated this result transmit sheba reference range : <=0.40. The reference r christiano was not used to interpr et this result as edy l/abnormal. [facility]2020-12-06 04:34:00 Test Item Value Reference Range Interpretation Comments Glucose Lvl (test code = Glucose Lvl) 125 70-99 [place] [address]-12-06 04:34:00 Test Item Value Reference Range Interpretation Comments BUN (test code = BUN) 17 7-22 [place] [address]-12-06 04:34:00 Test Item Value Reference Range Interpretation Comments Creatinine Lvl (test code = Creatinine 1.51 0.50-1.40 Lvl) [place] 678380-12-06 04:34:00 Test Item Value Reference Range Interpretation Comments Sodium Lvl (test code = Sodium Lvl) 142 135-145 [place] 678380-12-06 04:34:00 Test Item Value Reference Range Interpretation Comments Potassium Lvl (test code = Potassium 4.0 3.5-5.1 Lvl) [place] 678380-12-06 04:34:00 Test Item Value Reference Range Interpretation Comments Chloride Lvl (test code = Chloride Lvl) 108 95-109 [place] 678380-12-06 04:34:00 Test Item Value Reference Range Interpretation Comments CO2 (test code = CO2) 30 24-32 [place] 678380-12-06 04:34:00 Test Item Value Reference Range Interpretation Comments Calcium Lvl (test code = Calcium Lvl) 7.8 8.5-10.5 [place] 678380-12-06 04:34:00 Test Item Value Reference Range Interpretation Comments AGAP (test code = AGAP) 8.0 10.0-20.0 [place] [address]-12-06 04:34:00 Test Item Value Reference Range Interpretation Comments eGFR (test code = eGFR) 33 [place] 222910-12-06 04:34:00 Test Item Value Reference Range Interpretation Comments WBC X 10x3 (test code = WBC X 10x3) 9.7 3.7-10.4 [place] [address]-12-06 04:34:00 Test Item Value Reference Range Interpretation Comments RBC X 10x6 (test code = RBC X 10x6) 3.96 4.20-5.40 [facility] CenterTnvmlmlEEECJUYBFJ0401-04-29 04:34:00 Test Item Value Reference Range Interpretation Comments Hgb (test code = Hgb) 10.6 12.0-16.0 [facility] CenterMrshrviANFKUZPEIO7350-29-97 04:34:00 Test Item Value Reference Range Interpretation Comments Hct (test code = Hct) 32.6 36.0-48.0 [facility] CenterQovfopkLAVLXLCLQN1259-18-02 04:34:00 Test Item Value Reference Range Interpretation Comments MCV (test code = MCV) 82.3 80.0-98.0 [facility] CenterZiauwidZTWNRNQOFY0547-31-12 04:34:00 Test Item Value Reference Range Interpretation Comments MCH (test code = MCH) 26.6 pg 27.0-31.0 [facility] CenterKiittymLUMRUNSCFV2198-05-59 04:34:00 Test Item Value Reference Range Interpretation Comments MCHC (test code = MCHC) 32.4 32.0-36.0 [facility] CenterXbqbtkkDMIRDVZYPD5258-82-12 04:34:00 Test Item Value Reference Range Interpretation Comments RDW (test code = RDW) 16.8 11.5-14.5 [facility] CenterRiudiajVIWNZMNPTT1112-75-29 04:34:00 Test Item Value Reference Range Interpretation Comments Platelet (test code = Platelet) 178 133-450 [facility] CenterQzlamedBUSWDXDJAM9900-61-34 04:34:00 Test Item Value Reference Range Interpretation Comments MPV (test code = MPV) 8.0 7.4-10.4 [facility] CenterVczzzruZCHLOIFFJW6244-59-66 04:34:00 Test Item Value Reference Range Interpretation Comments PT (test code = PT) 14.7 s 12.0-14.7 [place] [address]-12-06 04:34:00 Test Item Value Reference Range Interpretation Comments INR (test code = INR) 1.14 1 0.85-1.17 [place] [address]-12-06 04:34:00 Test Item Value Reference Range Interpretation Comments PTT (test code = PTT) 31.2 s 22.9-35.8 [place] [address]-12-06 04:34:00 Test Item Value Reference Range Interpretation Comments Segs (test code = Segs) 73.9 45.0-75.0 [place] 222910-12-06 04:34:00 Test Item Value Reference Range Interpretation Comments Lymphocytes (test code = Lymphocytes) 11.0 20.0-40.0 [place] 222910-12-06 04:34:00 Test Item Value Reference Range Interpretation Comments Monocytes (test code = Monocytes) 13.6 2.0-12.0 [place] 222910-12-06 04:34:00 Test Item Value Reference Range Interpretation Comments Eosinophils (test code = 0.7 See_Comment [A utomated message] The Eosinophils) system which ge nerated this result tra nsmitted reference range : <=4.0. The reference r christiano was not used to int erpret this result as normal/abnormal . [place] 222910-12-06 04:34:00 Test Item Value Reference Range Interpretation Comments Basophils (test code = 0.8 See_Comment [Aut omated message] The Basophils) system which ge nerated this result tra nsmitted reference range : <=1.0. The reference r christiano was not used to int erpret this result as normal/abnormal . [facility] CenterKxrawefSZYDACCOEA3200-31-49 04:34:00 Test Item Value Reference Range Interpretation Comments Neutrophils # (test code = Neutrophils 7.2 1.5-8.1 #) [place] 222910-12-06 04:34:00 Test Item Value Reference Range Interpretation Comments Lymphocytes # (test code = Lymphocytes 1.1 1.0-5.5 #) [facility] CenterTskfjlvSQSBJHWEWJ1369-78-89 04:34:00 Test Item Value Reference Range Interpretation Comments Monocytes # (test code 1.3 See_Comment [Aut omated message] The = Monocytes #) system which generated this result tra nsmitted reference range : <=0.8. The reference r christiano was not used to int erpret this result as normal/abnormal . [place] [address]-12-06 04:34:00 Test Item Value Reference Range Interpretation Comments Eosinophils # (test code 0.1 See_Comment [A utomated message] The = Eosinophils #) system whic h generated this result tra nsmitted reference range : <=0.5. The reference r christiano was not used to int erpret this result as normal/abnormal . [place] 222910-12-06 04:34:00 Test Item Value Reference Range Interpretation Comments Basophils # (test code 0.1 See_Comment [Aut omated message] The = Basophils #) system which generated this result tra nsmitted reference range : <=0.2. The reference r christiano was not used to int erpret this result as normal/abnormal . [facility] [id number] 04:34:00 Test Item Value Reference Range Interpretation Comments Troponin-I (test code no gt See_Comment [Auto mated message] The = Troponin-I) system which g enerated this result transmit sheba reference range : <=0.40. The reference r christiano was not used to interpr et this result as edy l/abnormal. [facility] [id number] 04:34:00 Test Item Value Reference Range Interpretation Comments Glucose Lvl (test code = Glucose Lvl) 125 70-99 [facility] [id number] 04:34:00 Test Item Value Reference Range Interpretation Comments BUN (test code = BUN) 17 7-22 [facility] [id number] 04:34:00 Test Item Value Reference Range Interpretation Comments Creatinine Lvl (test code = Creatinine 1.51 0.50-1.40 Lvl) [facility] [id number] 04:34:00 Test Item Value Reference Range Interpretation Comments Sodium Lvl (test code = Sodium Lvl) 142 135-145 [facility] [id number] 04:34:00 Test Item Value Reference Range Interpretation Comments Potassium Lvl (test code = Potassium 4.0 3.5-5.1 Lvl) [facility] [id number] 04:34:00 Test Item Value Reference Range Interpretation Comments Chloride Lvl (test code = Chloride Lvl) 108 95-109 [facility] [id number] 04:34:00 Test Item Value Reference Range Interpretation Comments CO2 (test code = CO2) 30 24-32 [facility] [id number] 04:34:00 Test Item Value Reference Range Interpretation Comments Calcium Lvl (test code = Calcium Lvl) 7.8 8.5-10.5 [facility] [id number] 04:34:00 Test Item Value Reference Range Interpretation Comments AGAP (test code = AGAP) 8.0 10.0-20.0 [facility]2020-12-06 04:34:00 Test Item Value Reference Range Interpretation Comments eGFR (test code = eGFR) 33 [facility] CenterZikscugGLCVPCDBVS1556-84-17 04:34:00 Test Item Value Reference Range Interpretation Comments WBC X 10x3 (test code = WBC X 10x3) 9.7 3.7-10.4 [facility] CenterQyizfncGYGLHVXXAU9056-27-68 04:34:00 Test Item Value Reference Range Interpretation Comments RBC X 10x6 (test code = RBC X 10x6) 3.96 4.20-5.40 [place] 222910-12-06 04:34:00 Test Item Value Reference Range Interpretation Comments Hgb (test code = Hgb) 10.6 12.0-16.0 [facility] CenterImgmdjtFUHWOWNHNJ5939-85-74 04:34:00 Test Item Value Reference Range Interpretation Comments Hct (test code = Hct) 32.6 36.0-48.0 [facility] CenterLewkudzRSHXNNYLOQ3370-67-59 04:34:00 Test Item Value Reference Range Interpretation Comments MCV (test code = MCV) 82.3 80.0-98.0 [facility] CenterEirbcqmLDLVKOJSXV2983-63-63 04:34:00 Test Item Value Reference Range Interpretation Comments MCH (test code = MCH) 26.6 pg 27.0-31.0 [facility] CenterRamiujrBTYUQZNKYD1424-56-97 04:34:00 Test Item Value Reference Range Interpretation Comments MCHC (test code = MCHC) 32.4 32.0-36.0 [facility] CenterFcfejfiSEURYGQILS2014-00-79 04:34:00 Test Item Value Reference Range Interpretation Comments RDW (test code = RDW) 16.8 11.5-14.5 [place] [address]-12-06 04:34:00 Test Item Value Reference Range Interpretation Comments Platelet (test code = Platelet) 178 133-450 [facility] CenterNsbjvppBXIJSCFXHV3143-62-26 04:34:00 Test Item Value Reference Range Interpretation Comments MPV (test code = MPV) 8.0 7.4-10.4 [place] 222910-12-06 04:34:00 Test Item Value Reference Range Interpretation Comments PT (test code = PT) 14.7 s 12.0-14.7 [place] [address]-12-06 04:34:00 Test Item Value Reference Range Interpretation Comments INR (test code = INR) 1.14 1 0.85-1.17 [place] [address]-12-06 04:34:00 Test Item Value Reference Range Interpretation Comments PTT (test code = PTT) 31.2 s 22.9-35.8 [place] 222910-12-06 04:34:00 Test Item Value Reference Range Interpretation Comments Segs (test code = Segs) 73.9 45.0-75.0 [place] 222910-12-06 04:34:00 Test Item Value Reference Range Interpretation Comments Lymphocytes (test code = Lymphocytes) 11.0 20.0-40.0 [place] [address]-12-06 04:34:00 Test Item Value Reference Range Interpretation Comments Monocytes (test code = Monocytes) 13.6 2.0-12.0 [place] [address]-12-06 04:34:00 Test Item Value Reference Range Interpretation Comments Eosinophils (test code = 0.7 See_Comment [A utomated message] The Eosinophils) system which ge nerated this result tra nsmitted reference range : <=4.0. The reference r christiano was not used to int erpret this result as normal/abnormal . [place] 222910-12-06 04:34:00 Test Item Value Reference Range Interpretation Comments Basophils (test code = 0.8 See_Comment [Aut omated message] The Basophils) system which ge nerated this result tra nsmitted reference range : <=1.0. The reference r christiano was not used to int erpret this result as normal/abnormal . [place] 222910-12-06 04:34:00 Test Item Value Reference Range Interpretation Comments Neutrophils # (test code = Neutrophils 7.2 1.5-8.1 #) [place] [address]-12-06 04:34:00 Test Item Value Reference Range Interpretation Comments Lymphocytes # (test code = Lymphocytes 1.1 1.0-5.5 #) [place] 222910-12-06 04:34:00 Test Item Value Reference Range Interpretation Comments Monocytes # (test code 1.3 See_Comment [Aut omated message] The = Monocytes #) system which generated this result tra nsmitted reference range : <=0.8. The reference r christiano was not used to int erpret this result as normal/abnormal . [id number] 04:34:00 Test Item Value Reference Range Interpretation Comments Eosinophils # (test code 0.1 See_Comment [A utomated message] The = Eosinophils #) system whic h generated this result tra nsmitted reference range : <=0.5. The reference r christiano was not used to int erpret this result as normal/abnormal . [facility] GladwinUqismelUJSKLGVPIL3689-83-19 04:34:00 Test Item Value Reference Range Interpretation Comments Basophils # (test code 0.1 See_Comment [Aut omated message] The = Basophils #) system which generated this result tra nsmitted reference range : <=0.2. The reference r christiano was not used to int erpret this result as normal/abnormal . [facility] [id number] 04:34:00 Test Item Value Reference Range Interpretation Comments Troponin-I (test code no gt See_Comment [Auto mated message] The = Troponin-I) system which g enerated this result transmit sheba reference range : <=0.40. The reference r christiano was not used to interpr et this result as edy l/abnormal. [facility] [id number] 04:34:00 Test Item Value Reference Range Interpretation Comments Glucose Lvl (test code = Glucose Lvl) 125 70-99 [facility] [id number] 04:34:00 Test Item Value Reference Range Interpretation Comments BUN (test code = BUN) 17 7-22 [facility] [id number] 04:34:00 Test Item Value Reference Range Interpretation Comments Creatinine Lvl (test code = Creatinine 1.51 0.50-1.40 Lvl) [facility] [id number] 04:34:00 Test Item Value Reference Range Interpretation Comments Sodium Lvl (test code = Sodium Lvl) 142 135-145 [facility] [id number] 04:34:00 Test Item Value Reference Range Interpretation Comments Potassium Lvl (test code = Potassium 4.0 3.5-5.1 Lvl) [facility] [id number] 04:34:00 Test Item Value Reference Range Interpretation Comments Chloride Lvl (test code = Chloride Lvl) 108 95-109 [place] 678380-12-06 04:34:00 Test Item Value Reference Range Interpretation Comments CO2 (test code = CO2) 30 24-32 [place] 678380-12-06 04:34:00 Test Item Value Reference Range Interpretation Comments Calcium Lvl (test code = Calcium Lvl) 7.8 8.5-10.5 [place] 678380-12-06 04:34:00 Test Item Value Reference Range Interpretation Comments AGAP (test code = AGAP) 8.0 10.0-20.0 [place] 678380-12-06 04:34:00 Test Item Value Reference Range Interpretation Comments eGFR (test code = eGFR) 33 [place] 222910-12-06 04:34:00 Test Item Value Reference Range Interpretation Comments WBC X 10x3 (test code = WBC X 10x3) 9.7 3.7-10.4 [place] 222910-12-06 04:34:00 Test Item Value Reference Range Interpretation Comments RBC X 10x6 (test code = RBC X 10x6) 3.96 4.20-5.40 [place] 222910-12-06 04:34:00 Test Item Value Reference Range Interpretation Comments Hgb (test code = Hgb) 10.6 12.0-16.0 [place] [address]-12-06 04:34:00 Test Item Value Reference Range Interpretation Comments Hct (test code = Hct) 32.6 36.0-48.0 [place] [address]-12-06 04:34:00 Test Item Value Reference Range Interpretation Comments MCV (test code = MCV) 82.3 80.0-98.0 [place] [address]-12-06 04:34:00 Test Item Value Reference Range Interpretation Comments MCH (test code = MCH) 26.6 pg 27.0-31.0 [place] 222910-12-06 04:34:00 Test Item Value Reference Range Interpretation Comments MCHC (test code = MCHC) 32.4 32.0-36.0 [place] [address]-12-06 04:34:00 Test Item Value Reference Range Interpretation Comments RDW (test code = RDW) 16.8 11.5-14.5 [place] [address]-12-06 04:34:00 Test Item Value Reference Range Interpretation Comments Platelet (test code = Platelet) 178 133-450 [place] 222910-12-06 04:34:00 Test Item Value Reference Range Interpretation Comments MPV (test code = MPV) 8.0 7.4-10.4 [place] 222910-12-06 04:34:00 Test Item Value Reference Range Interpretation Comments PT (test code = PT) 14.7 s 12.0-14.7 [place] [address]-12-06 04:34:00 Test Item Value Reference Range Interpretation Comments INR (test code = INR) 1.14 1 0.85-1.17 [place] [address]-12-06 04:34:00 Test Item Value Reference Range Interpretation Comments PTT (test code = PTT) 31.2 s 22.9-35.8 [place] 222910-12-06 04:34:00 Test Item Value Reference Range Interpretation Comments Segs (test code = Segs) 73.9 45.0-75.0 [facility]wh[facility]ujOUGVYZRXLP6301-75-34 04:34:00 Test Item Value Reference Range Interpretation Comments Lymphocytes (test code = Lymphocytes) 11.0 20.0-40.0 [place] 222910-12-06 04:34:00 Test Item Value Reference Range Interpretation Comments Monocytes (test code = Monocytes) 13.6 2.0-12.0 [place] 222910-12-06 04:34:00 Test Item Value Reference Range Interpretation Comments Eosinophils (test code = 0.7 See_Comment [A utomated message] The Eosinophils) system which ge nerated this result tra nsmitted reference range : <=4.0. The reference r christiano was not used to int erpret this result as normal/abnormal . [place] [address]-12-06 04:34:00 Test Item Value Reference Range Interpretation Comments Basophils (test code = 0.8 See_Comment [Aut omated message] The Basophils) system which ge nerated this result tra nsmitted reference range : <=1.0. The reference r christiano was not used to int erpret this result as normal/abnormal . [place] [address]-12-06 04:34:00 Test Item Value Reference Range Interpretation Comments Neutrophils # (test code = Neutrophils 7.2 1.5-8.1 #) [facility] CenterNtbymguLOAENTLQZQ7880-12-76 04:34:00 Test Item Value Reference Range Interpretation Comments Lymphocytes # (test code = Lymphocytes 1.1 1.0-5.5 #) [facility] CenterNedelbrJVQBEEUVYL5186-62-46 04:34:00 Test Item Value Reference Range Interpretation Comments Monocytes # (test code 1.3 See_Comment [Aut omated message] The = Monocytes #) system which generated this result tra nsmitted reference range : <=0.8. The reference r christiano was not used to int erpret this result as normal/abnormal . [facility] CenterXgpxmmuAYNMYHBAKT7320-17-41 04:34:00 Test Item Value Reference Range Interpretation Comments Eosinophils # (test code 0.1 See_Comment [A utomated message] The = Eosinophils #) system whic h generated this result tra nsmitted reference range : <=0.5. The reference r christiano was not used to int erpret this result as normal/abnormal . [facility] CenterKvkhzpkHELRYMBBJN4197-97-33 04:34:00 Test Item Value Reference Range Interpretation Comments Basophils # (test code 0.1 See_Comment [Aut omated message] The = Basophils #) system which generated this result tra nsmitted reference range : <=0.2. The reference r christiano was not used to int erpret this result as normal/abnormal . [facility] [id number] 04:34:00 Test Item Value Reference Range Interpretation Comments Troponin-I (test code no gt See_Comment [Auto mated message] The = Troponin-I) system which g enerated this result transmit sheba reference range : <=0.40. The reference r christiano was not used to interpr et this result as edy l/abnormal. [facility] [id number] 04:34:00 Test Item Value Reference Range Interpretation Comments Glucose Lvl (test code = Glucose Lvl) 125 70-99 [facility] [id number] 04:34:00 Test Item Value Reference Range Interpretation Comments BUN (test code = BUN) 17 7-22 [facility] [id number] 04:34:00 Test Item Value Reference Range Interpretation Comments Creatinine Lvl (test code = Creatinine 1.51 0.50-1.40 Lvl) [place] 678380-12-06 04:34:00 Test Item Value Reference Range Interpretation Comments Sodium Lvl (test code = Sodium Lvl) 142 135-145 [place] [address]-12-06 04:34:00 Test Item Value Reference Range Interpretation Comments Potassium Lvl (test code = Potassium 4.0 3.5-5.1 Lvl) [place] 678380-12-06 04:34:00 Test Item Value Reference Range Interpretation Comments Chloride Lvl (test code = Chloride Lvl) 108 95-109 [place] 678380-12-06 04:34:00 Test Item Value Reference Range Interpretation Comments CO2 (test code = CO2) 30 24-32 [place] 678380-12-06 04:34:00 Test Item Value Reference Range Interpretation Comments Calcium Lvl (test code = Calcium Lvl) 7.8 8.5-10.5 [place] 678380-12-06 04:34:00 Test Item Value Reference Range Interpretation Comments AGAP (test code = AGAP) 8.0 10.0-20.0 [place] 678380-12-06 04:34:00 Test Item Value Reference Range Interpretation Comments eGFR (test code = eGFR) 33 [place] 222910-12-06 04:34:00 Test Item Value Reference Range Interpretation Comments WBC X 10x3 (test code = WBC X 10x3) 9.7 3.7-10.4 [place] [address]-12-06 04:34:00 Test Item Value Reference Range Interpretation Comments RBC X 10x6 (test code = RBC X 10x6) 3.96 4.20-5.40 [place] [address]-12-06 04:34:00 Test Item Value Reference Range Interpretation Comments Hgb (test code = Hgb) 10.6 12.0-16.0 [place] [address]-12-06 04:34:00 Test Item Value Reference Range Interpretation Comments Hct (test code = Hct) 32.6 36.0-48.0 [place] [address]-12-06 04:34:00 Test Item Value Reference Range Interpretation Comments MCV (test code = MCV) 82.3 80.0-98.0 [facility] CenterX[id number] 04:34:00 Test Item Value Reference Range Interpretation Comments MCH (test code = MCH) 26.6 pg 27.0-31.0 [facility] CenterXiezszrCSYOFMXOUF5513-60-91 04:34:00 Test Item Value Reference Range Interpretation Comments MCHC (test code = MCHC) 32.4 32.0-36.0 [facility] CenterKtvbdgoSNSKASFTUF8774-56-95 04:34:00 Test Item Value Reference Range Interpretation Comments RDW (test code = RDW) 16.8 11.5-14.5 [place] 222910-12-06 04:34:00 Test Item Value Reference Range Interpretation Comments Platelet (test code = Platelet) 178 133-450 [facility] CenterXdodhryMZEEOUOOAU0098-39-51 04:34:00 Test Item Value Reference Range Interpretation Comments MPV (test code = MPV) 8.0 7.4-10.4 [facility] CenterBtyitamIBTQPGHUPG1345-69-77 04:34:00 Test Item Value Reference Range Interpretation Comments PT (test code = PT) 14.7 s 12.0-14.7 [facility] CenterJxkszmoZJNTTWUQXN7273-67-05 04:34:00 Test Item Value Reference Range Interpretation Comments INR (test code = INR) 1.14 1 0.85-1.17 [facility] CenterRywzgrfQOCSUYJWIR2468-11-48 04:34:00 Test Item Value Reference Range Interpretation Comments PTT (test code = PTT) 31.2 s 22.9-35.8 [place] 222910-12-06 04:34:00 Test Item Value Reference Range Interpretation Comments Segs (test code = Segs) 73.9 45.0-75.0 [place] 222910-12-06 04:34:00 Test Item Value Reference Range Interpretation Comments Lymphocytes (test code = Lymphocytes) 11.0 20.0-40.0 [place] 222910-12-06 04:34:00 Test Item Value Reference Range Interpretation Comments Monocytes (test code = Monocytes) 13.6 2.0-12.0 [place] 222910-12-06 04:34:00 Test Item Value Reference Range Interpretation Comments Eosinophils (test code = 0.7 See_Comment [A utomated message] The Eosinophils) system which ge nerated this result tra nsmitted reference range : <=4.0. The reference r christiano was not used to int erpret this result as normal/abnormal . [facility] GladwinVdcklkgDQZGIJCSEO0629-82-66 04:34:00 Test Item Value Reference Range Interpretation Comments Basophils (test code = 0.8 See_Comment [Aut omated message] The Basophils) system which ge nerated this result tra nsmitted reference range : <=1.0. The reference r christiano was not used to int erpret this result as normal/abnormal . [facility] CenterQsjepxeZNWLQALRNB5132-12-10 04:34:00 Test Item Value Reference Range Interpretation Comments Neutrophils # (test code = Neutrophils 7.2 1.5-8.1 #) [facility] CenterUpyoqnxBIOGQBFUVN2623-07-71 04:34:00 Test Item Value Reference Range Interpretation Comments Lymphocytes # (test code = Lymphocytes 1.1 1.0-5.5 #) [facility] CenterCcavhjnVFCVQVCZKI5862-87-81 04:34:00 Test Item Value Reference Range Interpretation Comments Monocytes # (test code 1.3 See_Comment [Aut omated message] The = Monocytes #) system which generated this result tra nsmitted reference range : <=0.8. The reference r christiano was not used to int erpret this result as normal/abnormal . [facility] CenterSyyebkoTZFEQECKFQ0483-55-99 04:34:00 Test Item Value Reference Range Interpretation Comments Eosinophils # (test code 0.1 See_Comment [A utomated message] The = Eosinophils #) system whic h generated this result tra nsmitted reference range : <=0.5. The reference r christiano was not used to int erpret this result as normal/abnormal . [facility] CenterSjocppdGZKHCLRUWD8961-01-14 04:34:00 Test Item Value Reference Range Interpretation Comments Basophils # (test code 0.1 See_Comment [Aut omated message] The = Basophils #) system which generated this result tra nsmitted reference range : <=0.2. The reference r christiano was not used to int erpret this result as normal/abnormal . [facility] [id number] 04:34:00 Test Item Value Reference Range Interpretation Comments Troponin-I (test code no gt See_Comment [Auto mated message] The = Troponin-I) system which g enerated this result transmit sheba reference range : <=0.40. The reference r christiano was not used to interpr et this result as edy l/abnormal. [place] 678380-12-06 04:34:00 Test Item Value Reference Range Interpretation Comments Glucose Lvl (test code = Glucose Lvl) 125 70-99 [place] 678380-12-06 04:34:00 Test Item Value Reference Range Interpretation Comments BUN (test code = BUN) 17 7-22 [place] 678380-12-06 04:34:00 Test Item Value Reference Range Interpretation Comments Creatinine Lvl (test code = Creatinine 1.51 0.50-1.40 Lvl) [place] 678380-12-06 04:34:00 Test Item Value Reference Range Interpretation Comments Sodium Lvl (test code = Sodium Lvl) 142 135-145 [place] 678380-12-06 04:34:00 Test Item Value Reference Range Interpretation Comments Potassium Lvl (test code = Potassium 4.0 3.5-5.1 Lvl) [facility]2020-12-06 04:34:00 Test Item Value Reference Range Interpretation Comments Chloride Lvl (test code = Chloride Lvl) 108 95-109 [place] 678380-12-06 04:34:00 Test Item Value Reference Range Interpretation Comments CO2 (test code = CO2) 30 24-32 [place] 678380-12-06 04:34:00 Test Item Value Reference Range Interpretation Comments Calcium Lvl (test code = Calcium Lvl) 7.8 8.5-10.5 [place] 678380-12-06 04:34:00 Test Item Value Reference Range Interpretation Comments AGAP (test code = AGAP) 8.0 10.0-20.0 [place] 678380-12-06 04:34:00 Test Item Value Reference Range Interpretation Comments eGFR (test code = eGFR) 33 [place] 222910-12-06 04:34:00 Test Item Value Reference Range Interpretation Comments WBC X 10x3 (test code = WBC X 10x3) 9.7 3.7-10.4 [place] 222910-12-06 04:34:00 Test Item Value Reference Range Interpretation Comments RBC X 10x6 (test code = RBC X 10x6) 3.96 4.20-5.40 [place] [address]-12-06 04:34:00 Test Item Value Reference Range Interpretation Comments Hgb (test code = Hgb) 10.6 12.0-16.0 [place] [address]-12-06 04:34:00 Test Item Value Reference Range Interpretation Comments Hct (test code = Hct) 32.6 36.0-48.0 [place] 222910-12-06 04:34:00 Test Item Value Reference Range Interpretation Comments MCV (test code = MCV) 82.3 80.0-98.0 [place] [address]-12-06 04:34:00 Test Item Value Reference Range Interpretation Comments MCH (test code = MCH) 26.6 pg 27.0-31.0 [place] [address]-12-06 04:34:00 Test Item Value Reference Range Interpretation Comments MCHC (test code = MCHC) 32.4 32.0-36.0 [place] [address]-12-06 04:34:00 Test Item Value Reference Range Interpretation Comments RDW (test code = RDW) 16.8 11.5-14.5 [place] [address]-12-06 04:34:00 Test Item Value Reference Range Interpretation Comments Platelet (test code = Platelet) 178 133-450 [facility] CenterZixhvyfLUCJLFNAIA9762-99-86 04:34:00 Test Item Value Reference Range Interpretation Comments MPV (test code = MPV) 8.0 7.4-10.4 [place] [address]-12-06 04:34:00 Test Item Value Reference Range Interpretation Comments PT (test code = PT) 14.7 s 12.0-14.7 [place] [address]-12-06 04:34:00 Test Item Value Reference Range Interpretation Comments INR (test code = INR) 1.14 1 0.85-1.17 [place] [address]-12-06 04:34:00 Test Item Value Reference Range Interpretation Comments PTT (test code = PTT) 31.2 s 22.9-35.8 [place] [address]-12-06 04:34:00 Test Item Value Reference Range Interpretation Comments Segs (test code = Segs) 73.9 45.0-75.0 [place] 222910-12-06 04:34:00 Test Item Value Reference Range Interpretation Comments Lymphocytes (test code = Lymphocytes) 11.0 20.0-40.0 [place] 222910-12-06 04:34:00 Test Item Value Reference Range Interpretation Comments Monocytes (test code = Monocytes) 13.6 2.0-12.0 [facility] CenterYhagrbpEWHELIMRPJ0053-34-24 04:34:00 Test Item Value Reference Range Interpretation Comments Eosinophils (test code = 0.7 See_Comment [A utomated message] The Eosinophils) system which ge nerated this result tra nsmitted reference range : <=4.0. The reference r christiano was not used to int erpret this result as normal/abnormal . [place] 222910-12-06 04:34:00 Test Item Value Reference Range Interpretation Comments Basophils (test code = 0.8 See_Comment [Aut omated message] The Basophils) system which ge nerated this result tra nsmitted reference range : <=1.0. The reference r christiano was not used to int erpret this result as normal/abnormal . [facility] CenterNwfhzxaKIJYBTCCWV8364-35-86 04:34:00 Test Item Value Reference Range Interpretation Comments Neutrophils # (test code = Neutrophils 7.2 1.5-8.1 #) [facility] CenterAyhdufaMBFLCTULST8562-65-68 04:34:00 Test Item Value Reference Range Interpretation Comments Lymphocytes # (test code = Lymphocytes 1.1 1.0-5.5 #) [facility] CenterUdyjttfHCSBHVQSEK9027-85-75 04:34:00 Test Item Value Reference Range Interpretation Comments Monocytes # (test code 1.3 See_Comment [Aut omated message] The = Monocytes #) system which generated this result tra nsmitted reference range : <=0.8. The reference r christiano was not used to int erpret this result as normal/abnormal . [facility] CenterYeqcifxBOMEUIHQEI2815-14-87 04:34:00 Test Item Value Reference Range Interpretation Comments Eosinophils # (test code 0.1 See_Comment [A utomated message] The = Eosinophils #) system whic h generated this result tra nsmitted reference range : <=0.5. The reference r christiano was not used to int erpret this result as normal/abnormal . [place] [address]-12-06 04:34:00 Test Item Value Reference Range Interpretation Comments Basophils # (test code 0.1 See_Comment [Aut omated message] The = Basophils #) system which generated this result tra nsmitted reference range : <=0.2. The reference r christiano was not used to int erpret this result as normal/abnormal . [facility] [id number] 04:34:00 Test Item Value Reference Range Interpretation Comments Troponin-I (test code no gt See_Comment [Auto mated message] The = Troponin-I) system which g enerated this result transmit sheba reference range : <=0.40. The reference r christiano was not used to interpr et this result as edy l/abnormal. [facility] [id number] 04:34:00 Test Item Value Reference Range Interpretation Comments Glucose Lvl (test code = Glucose Lvl) 125 70-99 [facility] [id number] 04:34:00 Test Item Value Reference Range Interpretation Comments BUN (test code = BUN) 17 7-22 [facility] [id number] 04:34:00 Test Item Value Reference Range Interpretation Comments Creatinine Lvl (test code = Creatinine 1.51 0.50-1.40 Lvl) [facility] [id number] 04:34:00 Test Item Value Reference Range Interpretation Comments Sodium Lvl (test code = Sodium Lvl) 142 135-145 [facility] [id number] 04:34:00 Test Item Value Reference Range Interpretation Comments Potassium Lvl (test code = Potassium 4.0 3.5-5.1 Lvl) [facility] [id number] 04:34:00 Test Item Value Reference Range Interpretation Comments Chloride Lvl (test code = Chloride Lvl) 108 95-109 [facility] [id number] 04:34:00 Test Item Value Reference Range Interpretation Comments CO2 (test code = CO2) 30 24-32 [facility] [id number] 04:34:00 Test Item Value Reference Range Interpretation Comments Calcium Lvl (test code = Calcium Lvl) 7.8 8.5-10.5 [facility] [id number] 04:34:00 Test Item Value Reference Range Interpretation Comments AGAP (test code = AGAP) 8.0 10.0-20.0 [facility]2020-12-06 04:34:00 Test Item Value Reference Range Interpretation Comments eGFR (test code = eGFR) 33 [facility] CenterQbjkcrbQXCXULHORJ5152-67-29 04:34:00 Test Item Value Reference Range Interpretation Comments WBC X 10x3 (test code = WBC X 10x3) 9.7 3.7-10.4 [facility] CenterPaeqsrvJMFKGEJCHC6467-00-45 04:34:00 Test Item Value Reference Range Interpretation Comments RBC X 10x6 (test code = RBC X 10x6) 3.96 4.20-5.40 [facility] CenterOkjwdbiTNRMMTZRES5851-47-43 04:34:00 Test Item Value Reference Range Interpretation Comments Hgb (test code = Hgb) 10.6 12.0-16.0 [place] 222910-12-06 04:34:00 Test Item Value Reference Range Interpretation Comments Hct (test code = Hct) 32.6 36.0-48.0 [id number] 04:34:00 Test Item Value Reference Range Interpretation Comments MCV (test code = MCV) 82.3 80.0-98.0 [place] 222910-12-06 04:34:00 Test Item Value Reference Range Interpretation Comments MCH (test code = MCH) 26.6 pg 27.0-31.0 [facility] Cent[id number] 04:34:00 Test Item Value Reference Range Interpretation Comments MCHC (test code = MCHC) 32.4 32.0-36.0 [facility] CenterXevkixeUOKZWPOQSS3658-25-13 04:34:00 Test Item Value Reference Range Interpretation Comments RDW (test code = RDW) 16.8 11.5-14.5 [place] [address]-12-06 04:34:00 Test Item Value Reference Range Interpretation Comments Platelet (test code = Platelet) 178 133-450 [facility] CenterRioadkbPMMHOYLOKR0435-52-57 04:34:00 Test Item Value Reference Range Interpretation Comments MPV (test code = MPV) 8.0 7.4-10.4 [facility] CenterWifruaxMGUVNLOPPH4346-62-37 04:34:00 Test Item Value Reference Range Interpretation Comments PT (test code = PT) 14.7 s 12.0-14.7 [place] 222910-12-06 04:34:00 Test Item Value Reference Range Interpretation Comments INR (test code = INR) 1.14 1 0.85-1.17 [place] 222910-12-06 04:34:00 Test Item Value Reference Range Interpretation Comments PTT (test code = PTT) 31.2 s 22.9-35.8 [place] 222910-12-06 04:34:00 Test Item Value Reference Range Interpretation Comments Segs (test code = Segs) 73.9 45.0-75.0 [place] 222910-12-06 04:34:00 Test Item Value Reference Range Interpretation Comments Lymphocytes (test code = Lymphocytes) 11.0 20.0-40.0 [place] [address]-12-06 04:34:00 Test Item Value Reference Range Interpretation Comments Monocytes (test code = Monocytes) 13.6 2.0-12.0 [place] 222910-12-06 04:34:00 Test Item Value Reference Range Interpretation Comments Eosinophils (test code = 0.7 See_Comment [A utomated message] The Eosinophils) system which ge nerated this result tra nsmitted reference range : <=4.0. The reference r christiano was not used to int erpret this result as normal/abnormal . [facility] C[id number] 04:34:00 Test Item Value Reference Range Interpretation Comments Basophils (test code = 0.8 See_Comment [Aut omated message] The Basophils) system which ge nerated this result tra nsmitted reference range : <=1.0. The reference r christiano was not used to int erpret this result as normal/abnormal . [place] 222910-12-06 04:34:00 Test Item Value Reference Range Interpretation Comments Neutrophils # (test code = Neutrophils 7.2 1.5-8.1 #) [place] [address]-12-06 04:34:00 Test Item Value Reference Range Interpretation Comments Lymphocytes # (test code = Lymphocytes 1.1 1.0-5.5 #) [place] [address]-12-06 04:34:00 Test Item Value Reference Range Interpretation Comments Monocytes # (test code 1.3 See_Comment [Aut omated message] The = Monocytes #) system which generated this result tra nsmitted reference range : <=0.8. The reference r christiano was not used to int erpret this result as normal/abnormal . [facility] [id number] 04:34:00 Test Item Value Reference Range Interpretation Comments Troponin-I (test code no gt See_Comment [Auto mated message] The = Troponin-I) system which g enerated this result transmit sheba reference range : <=0.40. The reference r christiano was not used to interpr et this result as edy l/abnormal. [facility] [id number] 04:34:00 Test Item Value Reference Range Interpretation Comments Eosinophils # (test code 0.1 See_Comment [A utomated message] The = Eosinophils #) system whic h generated this result tra nsmitted reference range : <=0.5. The reference r christiano was not used to int erpret this result as normal/abnormal . [facility] [id number] 04:34:00 Test Item Value Reference Range Interpretation Comments Glucose Lvl (test code = Glucose Lvl) 125 70-99 [facility] [id number] 04:34:00 Test Item Value Reference Range Interpretation Comments BUN (test code = BUN) 17 7-22 [facility] [id number] 04:34:00 Test Item Value Reference Range Interpretation Comments Creatinine Lvl (test code = Creatinine 1.51 0.50-1.40 Lvl) [facility] [id number] 04:34:00 Test Item Value Reference Range Interpretation Comments Sodium Lvl (test code = Sodium Lvl) 142 135-145 [facility] [id number] 04:34:00 Test Item Value Reference Range Interpretation Comments Potassium Lvl (test code = Potassium 4.0 3.5-5.1 Lvl) [facility] [id number] 04:34:00 Test Item Value Reference Range Interpretation Comments Chloride Lvl (test code = Chloride Lvl) 108 95-109 [facility] [id number] 04:34:00 Test Item Value Reference Range Interpretation Comments CO2 (test code = CO2) 30 24-32 [facility] [id number] 04:34:00 Test Item Value Reference Range Interpretation Comments Calcium Lvl (test code = Calcium Lvl) 7.8 8.5-10.5 [facility] [id number] 04:34:00 Test Item Value Reference Range Interpretation Comments AGAP (test code = AGAP) 8.0 10.0-20.0 [facility] [id number] 04:34:00 Test Item Value Reference Range Interpretation Comments eGFR (test code = eGFR) 33 [facility] CenterPucksptLSSDTLGQCT1659-10-30 04:34:00 Test Item Value Reference Range Interpretation Comments Basophils # (test code 0.1 See_Comment [Aut omated message] The = Basophils #) system which generated this result tra nsmitted reference range : <=0.2. The reference r christiano was not used to int erpret this result as normal/abnormal . [facility] CenterTihzoesNVZZTGVDKZ9368-78-26 04:34:00 Test Item Value Reference Range Interpretation Comments WBC X 10x3 (test code = WBC X 10x3) 9.7 3.7-10.4 [place] 222910-12-06 04:34:00 Test Item Value Reference Range Interpretation Comments RBC X 10x6 (test code = RBC X 10x6) 3.96 4.20-5.40 [place] 222910-12-06 04:34:00 Test Item Value Reference Range Interpretation Comments Hgb (test code = Hgb) 10.6 12.0-16.0 [place] 222910-12-06 04:34:00 Test Item Value Reference Range Interpretation Comments Hct (test code = Hct) 32.6 36.0-48.0 [place] 222910-12-06 04:34:00 Test Item Value Reference Range Interpretation Comments MCV (test code = MCV) 82.3 80.0-98.0 [place] [address]-12-06 04:34:00 Test Item Value Reference Range Interpretation Comments MCH (test code = MCH) 26.6 pg 27.0-31.0 [place] 222910-12-06 04:34:00 Test Item Value Reference Range Interpretation Comments MCHC (test code = MCHC) 32.4 32.0-36.0 [place] 222910-12-06 04:34:00 Test Item Value Reference Range Interpretation Comments RDW (test code = RDW) 16.8 11.5-14.5 [facility] [id number] 04:34:00 Test Item Value Reference Range Interpretation Comments Platelet (test code = Platelet) 178 133-450 [facility] CenterLonaocbUJEAGDUZZD9159-04-96 04:34:00 Test Item Value Reference Range Interpretation Comments MPV (test code = MPV) 8.0 7.4-10.4 [facility] [id number] 04:34:00 Test Item Value Reference Range Interpretation Comments PT (test code = PT) 14.7 s 12.0-14.7 [facility] Cent[id number] 04:34:00 Test Item Value Reference Range Interpretation Comments INR (test code = INR) 1.14 1 0.85-1.17 [facility] CenterHloiemtANVFHPMOHD7413-10-74 04:34:00 Test Item Value Reference Range Interpretation Comments PTT (test code = PTT) 31.2 s 22.9-35.8 [facility] CenterMbdajitMVQOERSTXW1500-08-72 04:34:00 Test Item Value Reference Range Interpretation Comments Segs (test code = Segs) 73.9 45.0-75.0 [facility] CenterMkxortsVOJHBLBKDW8885-73-54 04:34:00 Test Item Value Reference Range Interpretation Comments Lymphocytes (test code = Lymphocytes) 11.0 20.0-40.0 [facility] CenterWdbpndgEDEUNFXHYB9603-78-14 04:34:00 Test Item Value Reference Range Interpretation Comments Monocytes (test code = Monocytes) 13.6 2.0-12.0 [facility] CenterAmvedwaRZTMZBTNVT4553-90-17 04:34:00 Test Item Value Reference Range Interpretation Comments Eosinophils (test code = 0.7 See_Comment [A utomated message] The Eosinophils) system which ge nerated this result tra nsmitted reference range : <=4.0. The reference r christiano was not used to int erpret this result as normal/abnormal . [place] 222910-12-06 04:34:00 Test Item Value Reference Range Interpretation Comments Basophils (test code = 0.8 See_Comment [Aut omated message] The Basophils) system which ge nerated this result tra nsmitted reference range : <=1.0. The reference r christiano was not used to int erpret this result as normal/abnormal . [facility] CenterTsnjtjlDMGRMDUTSF6618-34-93 04:34:00 Test Item Value Reference Range Interpretation Comments Neutrophils # (test code = Neutrophils 7.2 1.5-8.1 #) [facility] CenterCngmmjiOGBCPDZIFW5377-10-73 04:34:00 Test Item Value Reference Range Interpretation Comments Lymphocytes # (test code = Lymphocytes 1.1 1.0-5.5 #) [facility] CenterGdcsvelAKHEDLXKJJ6469-58-32 04:34:00 Test Item Value Reference Range Interpretation Comments Monocytes # (test code 1.3 See_Comment [Aut omated message] The = Monocytes #) system which generated this result tra nsmitted reference range : <=0.8. The reference r christiano was not used to int erpret this result as normal/abnormal . [facility] CenterUqerbhvYFVBTNTYWZ6226-13-41 04:34:00 Test Item Value Reference Range Interpretation Comments Eosinophils # (test code 0.1 See_Comment [A utomated message] The = Eosinophils #) system whic h generated this result tra nsmitted reference range : <=0.5. The reference r christiano was not used to int erpret this result as normal/abnormal . [facility] CenterEdkkogvEDDGCPRGDQ9259-54-30 04:34:00 Test Item Value Reference Range Interpretation Comments Basophils # (test code 0.1 See_Comment [Aut omated message] The = Basophils #) system which generated this result tra nsmitted reference range : <=0.2. The reference r christiano was not used to int erpret this result as normal/abnormal . [facility]CARD[facility] [id number] 04:34:00 Test Item Value Reference Range Interpretation Comments Troponin-I (test code no gt See_Comment [Auto mated message] The = Troponin-I) system which g enerated this result transmit sheba reference range : <=0.40. The reference r christiano was not used to interpr et this result as edy l/abnormal. [facility] [id number] 04:34:00 Test Item Value Reference Range Interpretation Comments Glucose Lvl (test code = Glucose Lvl) 125 70-99 [facility] [id number] 04:34:00 Test Item Value Reference Range Interpretation Comments BUN (test code = BUN) 17 7-22 [facility] [id number] 04:34:00 Test Item Value Reference Range Interpretation Comments Creatinine Lvl (test code = Creatinine 1.51 0.50-1.40 Lvl) [place] 678380-12-06 04:34:00 Test Item Value Reference Range Interpretation Comments Sodium Lvl (test code = Sodium Lvl) 142 135-145 [place] 678380-12-06 04:34:00 Test Item Value Reference Range Interpretation Comments Potassium Lvl (test code = Potassium 4.0 3.5-5.1 Lvl) [place] 678380-12-06 04:34:00 Test Item Value Reference Range Interpretation Comments Chloride Lvl (test code = Chloride Lvl) 108 95-109 [place] 678380-12-06 04:34:00 Test Item Value Reference Range Interpretation Comments CO2 (test code = CO2) 30 24-32 [place] [address]-12-06 04:34:00 Test Item Value Reference Range Interpretation Comments Calcium Lvl (test code = Calcium Lvl) 7.8 8.5-10.5 [place] 678380-12-06 04:34:00 Test Item Value Reference Range Interpretation Comments AGAP (test code = AGAP) 8.0 10.0-20.0 [place] 678380-12-06 04:34:00 Test Item Value Reference Range Interpretation Comments eGFR (test code = eGFR) 33 [place] 222910-12-06 04:34:00 Test Item Value Reference Range Interpretation Comments WBC X 10x3 (test code = WBC X 10x3) 9.7 3.7-10.4 [place] [address]-12-06 04:34:00 Test Item Value Reference Range Interpretation Comments RBC X 10x6 (test code = RBC X 10x6) 3.96 4.20-5.40 [place] [address]-12-06 04:34:00 Test Item Value Reference Range Interpretation Comments Hgb (test code = Hgb) 10.6 12.0-16.0 [place] [address]-12-06 04:34:00 Test Item Value Reference Range Interpretation Comments Hct (test code = Hct) 32.6 36.0-48.0 [place] [address]-12-06 04:34:00 Test Item Value Reference Range Interpretation Comments MCV (test code = MCV) 82.3 80.0-98.0 [place] 222910-12-06 04:34:00 Test Item Value Reference Range Interpretation Comments MCH (test code = MCH) 26.6 pg 27.0-31.0 [place] 222910-12-06 04:34:00 Test Item Value Reference Range Interpretation Comments MCHC (test code = MCHC) 32.4 32.0-36.0 [place] 222910-12-06 04:34:00 Test Item Value Reference Range Interpretation Comments RDW (test code = RDW) 16.8 11.5-14.5 [place] 222910-12-06 04:34:00 Test Item Value Reference Range Interpretation Comments Platelet (test code = Platelet) 178 133-450 [place] 222910-12-06 04:34:00 Test Item Value Reference Range Interpretation Comments MPV (test code = MPV) 8.0 7.4-10.4 [place] 222910-12-06 04:34:00 Test Item Value Reference Range Interpretation Comments PT (test code = PT) 14.7 s 12.0-14.7 [place] 222910-12-06 04:34:00 Test Item Value Reference Range Interpretation Comments INR (test code = INR) 1.14 1 0.85-1.17 [place] 222910-12-06 04:34:00 Test Item Value Reference Range Interpretation Comments PTT (test code = PTT) 31.2 s 22.9-35.8 [place] 222910-12-06 04:34:00 Test Item Value Reference Range Interpretation Comments Segs (test code = Segs) 73.9 45.0-75.0 [place] [address]-12-06 04:34:00 Test Item Value Reference Range Interpretation Comments Lymphocytes (test code = Lymphocytes) 11.0 20.0-40.0 [place] [address]-12-06 04:34:00 Test Item Value Reference Range Interpretation Comments Monocytes (test code = Monocytes) 13.6 2.0-12.0 [place] [address]-12-06 04:34:00 Test Item Value Reference Range Interpretation Comments Eosinophils (test code = 0.7 See_Comment [A utomated message] The Eosinophils) system which ge nerated this result tra nsmitted reference range : <=4.0. The reference r christiano was not used to int erpret this result as normal/abnormal . [facility] CenterCnyfsmhSLDHCVSORQ7255-24-50 04:34:00 Test Item Value Reference Range Interpretation Comments Basophils (test code = 0.8 See_Comment [Aut omated message] The Basophils) system which ge nerated this result tra nsmitted reference range : <=1.0. The reference r christiano was not used to int erpret this result as normal/abnormal . [facility] CenterKwvupwyEWLYJXALHA7040-35-34 04:34:00 Test Item Value Reference Range Interpretation Comments Neutrophils # (test code = Neutrophils 7.2 1.5-8.1 #) [facility] CenterGswxelkZATDVYVMXK1745-34-75 04:34:00 Test Item Value Reference Range Interpretation Comments Lymphocytes # (test code = Lymphocytes 1.1 1.0-5.5 #) [facility] CenterDfrrojkBGSFIESGEO0877-73-21 04:34:00 Test Item Value Reference Range Interpretation Comments Monocytes # (test code 1.3 See_Comment [Aut omated message] The = Monocytes #) system which generated this result tra nsmitted reference range : <=0.8. The reference r christiano was not used to int erpret this result as normal/abnormal . [facility] CenterCfkknoiGSSONMFZBB1349-17-04 04:34:00 Test Item Value Reference Range Interpretation Comments Eosinophils # (test code 0.1 See_Comment [A utomated message] The = Eosinophils #) system whic h generated this result tra nsmitted reference range : <=0.5. The reference r christiano was not used to int erpret this result as normal/abnormal . [facility] CenterJrvomxfXVOAITRDNQ5959-54-91 04:34:00 Test Item Value Reference Range Interpretation Comments Basophils # (test code 0.1 See_Comment [Aut omated message] The = Basophils #) system which generated this result tra nsmitted reference range : <=0.2. The reference r christiano was not used to int erpret this result as normal/abnormal . [facility]CARD[facility] [id number] 04:34:00 Test Item Value Reference Range Interpretation Comments Troponin-I (test code no gt See_Comment [Auto mated message] The = Troponin-I) system which g enerated this result transmit sheba reference range : <=0.40. The reference r christiano was not used to interpr et this result as edy l/abnormal. [place] 678380-12-06 04:34:00 Test Item Value Reference Range Interpretation Comments Glucose Lvl (test code = Glucose Lvl) 125 70-99 [place] [address]-12-06 04:34:00 Test Item Value Reference Range Interpretation Comments BUN (test code = BUN) 17 7-22 [place] [address]-12-06 04:34:00 Test Item Value Reference Range Interpretation Comments Creatinine Lvl (test code = Creatinine 1.51 0.50-1.40 Lvl) [place] 678380-12-06 04:34:00 Test Item Value Reference Range Interpretation Comments Sodium Lvl (test code = Sodium Lvl) 142 135-145 [place] 678380-12-06 04:34:00 Test Item Value Reference Range Interpretation Comments Potassium Lvl (test code = Potassium 4.0 3.5-5.1 Lvl) [place] 678380-12-06 04:34:00 Test Item Value Reference Range Interpretation Comments Chloride Lvl (test code = Chloride Lvl) 108 95-109 [place] 678380-12-06 04:34:00 Test Item Value Reference Range Interpretation Comments CO2 (test code = CO2) 30 24-32 [place] 678380-12-06 04:34:00 Test Item Value Reference Range Interpretation Comments Calcium Lvl (test code = Calcium Lvl) 7.8 8.5-10.5 [place] 678380-12-06 04:34:00 Test Item Value Reference Range Interpretation Comments AGAP (test code = AGAP) 8.0 10.0-20.0 [place] 678380-12-06 04:34:00 Test Item Value Reference Range Interpretation Comments eGFR (test code = eGFR) 33 [place] 222910-12-06 04:34:00 Test Item Value Reference Range Interpretation Comments WBC X 10x3 (test code = WBC X 10x3) 9.7 3.7-10.4 [place] 222910-12-06 04:34:00 Test Item Value Reference Range Interpretation Comments RBC X 10x6 (test code = RBC X 10x6) 3.96 4.20-5.40 [place] [address]-12-06 04:34:00 Test Item Value Reference Range Interpretation Comments Hgb (test code = Hgb) 10.6 12.0-16.0 [place] [address]-12-06 04:34:00 Test Item Value Reference Range Interpretation Comments Hct (test code = Hct) 32.6 36.0-48.0 [place] 222910-12-06 04:34:00 Test Item Value Reference Range Interpretation Comments MCV (test code = MCV) 82.3 80.0-98.0 [place] [address]-12-06 04:34:00 Test Item Value Reference Range Interpretation Comments MCH (test code = MCH) 26.6 pg 27.0-31.0 [place] [address]-12-06 04:34:00 Test Item Value Reference Range Interpretation Comments MCHC (test code = MCHC) 32.4 32.0-36.0 [place] 222910-12-06 04:34:00 Test Item Value Reference Range Interpretation Comments RDW (test code = RDW) 16.8 11.5-14.5 [place] 222910-12-06 04:34:00 Test Item Value Reference Range Interpretation Comments Platelet (test code = Platelet) 178 133-450 [facility] CenterMxydapoCLCZBARZLT6550-21-07 04:34:00 Test Item Value Reference Range Interpretation Comments MPV (test code = MPV) 8.0 7.4-10.4 [place] [address]-12-06 04:34:00 Test Item Value Reference Range Interpretation Comments PT (test code = PT) 14.7 s 12.0-14.7 [place] [address]-12-06 04:34:00 Test Item Value Reference Range Interpretation Comments INR (test code = INR) 1.14 1 0.85-1.17 [place] [address]-12-06 04:34:00 Test Item Value Reference Range Interpretation Comments PTT (test code = PTT) 31.2 s 22.9-35.8 [place] [address]-12-06 04:34:00 Test Item Value Reference Range Interpretation Comments Segs (test code = Segs) 73.9 45.0-75.0 [facility] CenterCexiiogEXVRVFAXJA6759-08-67 04:34:00 Test Item Value Reference Range Interpretation Comments Lymphocytes (test code = Lymphocytes) 11.0 20.0-40.0 [place] 222910-12-06 04:34:00 Test Item Value Reference Range Interpretation Comments Monocytes (test code = Monocytes) 13.6 2.0-12.0 [facility] CenterGqzdzqlEMLCSPXHGL6287-47-29 04:34:00 Test Item Value Reference Range Interpretation Comments Eosinophils (test code = 0.7 See_Comment [A utomated message] The Eosinophils) system which ge nerated this result tra nsmitted reference range : <=4.0. The reference r christiano was not used to int erpret this result as normal/abnormal . [place] 222910-12-06 04:34:00 Test Item Value Reference Range Interpretation Comments Basophils (test code = 0.8 See_Comment [Aut omated message] The Basophils) system which ge nerated this result tra nsmitted reference range : <=1.0. The reference r christiano was not used to int erpret this result as normal/abnormal . [facility] CenterIjpsousKLWBRTXPSP1235-75-03 04:34:00 Test Item Value Reference Range Interpretation Comments Neutrophils # (test code = Neutrophils 7.2 1.5-8.1 #) [facility] CenterSppzxkqUYSFBIVLQP6400-10-73 04:34:00 Test Item Value Reference Range Interpretation Comments Lymphocytes # (test code = Lymphocytes 1.1 1.0-5.5 #) [facility] CenterCojnddpIBZEPYDRVT0538-95-10 04:34:00 Test Item Value Reference Range Interpretation Comments Monocytes # (test code 1.3 See_Comment [Aut omated message] The = Monocytes #) system which generated this result tra nsmitted reference range : <=0.8. The reference r christiano was not used to int erpret this result as normal/abnormal . [place] 222910-12-06 04:34:00 Test Item Value Reference Range Interpretation Comments Eosinophils # (test code 0.1 See_Comment [A utomated message] The = Eosinophils #) system whic h generated this result tra nsmitted reference range : <=0.5. The reference r christiano was not used to int erpret this result as normal/abnormal . [facility]winLipfjgdFSSWGIKYPD5061-36-79 04:34:00 Test Item Value Reference Range Interpretation Comments Basophils # (test code 0.1 See_Comment [Aut omated message] The = Basophils #) system which generated this result tra nsmitted reference range : <=0.2. The reference r christiano was not used to int erpret this result as normal/abnormal . [facility] [id number] 04:34:00 Test Item Value Reference Range Interpretation Comments Troponin-I (test code no gt See_Comment [Auto mated message] The = Troponin-I) system which g enerated this result transmit [place]ba reference range : <=0.40. The reference r christiano was not used to interpr et this result as edy l/abnormal. [facility] [id number] 04:34:00 Test Item Value Reference Range Interpretation Comments Glucose Lvl (test code = Glucose Lvl) 125 70-99 [facility] [id number] 04:34:00 Test Item Value Reference Range Interpretation Comments BUN (test code = BUN) 17 7-22 [facility] [id number] 04:34:00 Test Item Value Reference Range Interpretation Comments Creatinine Lvl (test code = Creatinine 1.51 0.50-1.40 Lvl) [facility] [id number] 04:34:00 Test Item Value Reference Range Interpretation Comments Sodium Lvl (test code = Sodium Lvl) 142 135-145 [facility] [id number] 04:34:00 Test Item Value Reference Range Interpretation Comments Potassium Lvl (test code = Potassium 4.0 3.5-5.1 Lvl) [facility] [id number] 04:34:00 Test Item Value Reference Range Interpretation Comments Chloride Lvl (test code = Chloride Lvl) 108 95-109 [facility] [id number] 04:34:00 Test Item Value Reference Range Interpretation Comments CO2 (test code = CO2) 30 24-32 [facility] [id number] 04:34:00 Test Item Value Reference Range Interpretation Comments Calcium Lvl (test code = Calcium Lvl) 7.8 8.5-10.5 [facility] [id number] 04:34:00 Test Item Value Reference Range Interpretation Comments AGAP (test code = AGAP) 8.0 10.0-20.0 [facility] [id number] 04:34:00 Test Item Value Reference Range Interpretation Comments eGFR (test code = eGFR) 33 [facility]wpqxx[facility]ETDCX[facility]ZQSH5324[facility]63-21 04:34:00 Test Item Value Reference Range Interpretation Comments WBC X 10x3 (test code = WBC X 10x3) 9.7 3.7-10.4 [id number] 04:34:00 Test Item Value Reference Range Interpretation Comments RBC X 10x6 (test code = RBC X 10x6) 3.96 4.20-5.40 [place] 222910-12-06 04:34:00 Test Item Value Reference Range Interpretation Comments Hgb (test code = Hgb) 10.6 12.0-16.0 [facility]wdmqitVRGOLEZYVD1662-79-98 04:34:00 Test Item Value Reference Range Interpretation Comments Hct (test code = Hct) 32.6 36.0-48.0 [facility] CenterOmmthgdFDEQHQNMBJ3583-65-07 04:34:00 Test Item Value Reference Range Interpretation Comments MCV (test code = MCV) 82.3 80.0-98.0 [facility]sdcpwjYILCWPKEFT1444-10-53 04:34:00 Test Item Value Reference Range Interpretation Comments MCH (test code = MCH) 26.6 pg 27.0-31.0 [facility]winSybocqiYCPQEASTUQ1370-43-59 04:34:00 Test Item Value Reference Range Interpretation Comments MCHC (test code = MCHC) 32.4 32.0-36.0 [facility] C[id number] 04:34:00 Test Item Value Reference Range Interpretation Comments RDW (test code = RDW) 16.8 11.5-14.5 [facility]winVyxsxrbMVBABFAGCO9622-75-68 04:34:00 Test Item Value Reference Range Interpretation Comments Platelet (test code = Platelet) 178 133-450 [facility] [id number] 04:34:00 Test Item Value Reference Range Interpretation Comments MPV (test code = MPV) 8.0 7.4-10.4 [facility] CenterIrxhfydGWTZMKKIIA6067-29-89 04:34:00 Test Item Value Reference Range Interpretation Comments PT (test code = PT) 14.7 s 12.0-14.7 [place] 222910-12-06 04:34:00 Test Item Value Reference Range Interpretation Comments INR (test code = INR) 1.14 1 0.85-1.17 [place] 222910-12-06 04:34:00 Test Item Value Reference Range Interpretation Comments PTT (test code = PTT) 31.2 s 22.9-35.8 [place] 222910-12-06 04:34:00 Test Item Value Reference Range Interpretation Comments Segs (test code = Segs) 73.9 45.0-75.0 [place] 222910-12-06 04:34:00 Test Item Value Reference Range Interpretation Comments Lymphocytes (test code = Lymphocytes) 11.0 20.0-40.0 [place] 222910-12-06 04:34:00 Test Item Value Reference Range Interpretation Comments Monocytes (test code = Monocytes) 13.6 2.0-12.0 [place] 222910-12-06 04:34:00 Test Item Value Reference Range Interpretation Comments Eosinophils (test code = 0.7 See_Comment [A utomated message] The Eosinophils) system which ge nerated this result tra nsmitted reference range : <=4.0. The reference r christiano was not used to int erpret this result as normal/abnormal . [facility] C[id number] 04:34:00 Test Item Value Reference Range Interpretation Comments Basophils (test code = 0.8 See_Comment [Aut omated message] The Basophils) system which ge nerated this result tra nsmitted reference range : <=1.0. The reference r christiano was not used to int erpret this result as normal/abnormal . [facility] CenterDextzpgZLUZPPTJUW6877-86-32 04:34:00 Test Item Value Reference Range Interpretation Comments Neutrophils # (test code = Neutrophils 7.2 1.5-8.1 #) [place] 222910-12-06 04:34:00 Test Item Value Reference Range Interpretation Comments Lymphocytes # (test code = Lymphocytes 1.1 1.0-5.5 #) [place] 222910-12-06 04:34:00 Test Item Value Reference Range Interpretation Comments Monocytes # (test code 1.3 See_Comment [Aut omated message] The = Monocytes #) system which generated this result tra nsmitted reference range : <=0.8. The reference r christiano was not used to int erpret this result as normal/abnormal . [facility]winTwdtgdnAESSQQRHFC7571-13-43 04:34:00 Test Item Value Reference Range Interpretation Comments Eosinophils # (test code 0.1 See_Comment [A utomated message] The = Eosinophils #) system whic h generated this result tra nsmitted reference range : <=0.5. The reference r christiano was not used to int erpret this result as normal/abnormal . [facility] GladwinIlxwmxlBRZIDBKXMZ0743-98-49 04:34:00 Test Item Value Reference Range Interpretation Comments Basophils # (test code 0.1 See_Comment [Aut omated message] The = Basophils #) system which generated this result tra nsmitted reference range : <=0.2. The reference r christiano was not used to int erpret this result as normal/abnormal . [facility] [id number] 04:34:00 Test Item Value Reference Range Interpretation Comments Troponin-I (test code no gt See_Comment [Auto mated message] The = Troponin-I) system which g enerated this result transmit sheba reference range : <=0.40. The reference r christiano was not used to interpr et this result as edy l/abnormal. [facility] [id number] 04:34:00 Test Item Value Reference Range Interpretation Comments Glucose Lvl (test code = Glucose Lvl) 125 70-99 [facility] [id number] 04:34:00 Test Item Value Reference Range Interpretation Comments BUN (test code = BUN) 17 7-22 [facility] [id number] 04:34:00 Test Item Value Reference Range Interpretation Comments Creatinine Lvl (test code = Creatinine 1.51 0.50-1.40 Lvl) [facility] [id number] 04:34:00 Test Item Value Reference Range Interpretation Comments Sodium Lvl (test code = Sodium Lvl) 142 135-145 [facility] [id number] 04:34:00 Test Item Value Reference Range Interpretation Comments Potassium Lvl (test code = Potassium 4.0 3.5-5.1 Lvl) [facility] FallsannCARTERET HEALTH [id number] 04:34:00 Test Item Value Reference Range Interpretation Comments Chloride Lvl (test code = Chloride Lvl) 108 95-109 [place] 678380-12-06 04:34:00 Test Item Value Reference Range Interpretation Comments CO2 (test code = CO2) 30 24-32 [place] [address]-12-06 04:34:00 Test Item Value Reference Range Interpretation Comments Calcium Lvl (test code = Calcium Lvl) 7.8 8.5-10.5 [place] 678380-12-06 04:34:00 Test Item Value Reference Range Interpretation Comments AGAP (test code = AGAP) 8.0 10.0-20.0 [place] 678380-12-06 04:34:00 Test Item Value Reference Range Interpretation Comments eGFR (test code = eGFR) 33 [place] 222910-12-06 04:34:00 Test Item Value Reference Range Interpretation Comments WBC X 10x3 (test code = WBC X 10x3) 9.7 3.7-10.4 [place] 222910-12-06 04:34:00 Test Item Value Reference Range Interpretation Comments RBC X 10x6 (test code = RBC X 10x6) 3.96 4.20-5.40 [place] [address]-12-06 04:34:00 Test Item Value Reference Range Interpretation Comments Hgb (test code = Hgb) 10.6 12.0-16.0 [place] [address]-12-06 04:34:00 Test Item Value Reference Range Interpretation Comments Hct (test code = Hct) 32.6 36.0-48.0 [place] [address]-12-06 04:34:00 Test Item Value Reference Range Interpretation Comments MCV (test code = MCV) 82.3 80.0-98.0 [place] [address]-12-06 04:34:00 Test Item Value Reference Range Interpretation Comments MCH (test code = MCH) 26.6 pg 27.0-31.0 [place] [address]-12-06 04:34:00 Test Item Value Reference Range Interpretation Comments MCHC (test code = MCHC) 32.4 32.0-36.0 [place] [address]-12-06 04:34:00 Test Item Value Reference Range Interpretation Comments RDW (test code = RDW) 16.8 11.5-14.5 [place] [address]-12-06 04:34:00 Test Item Value Reference Range Interpretation Comments Platelet (test code = Platelet) 178 133-450 [place] 222910-12-06 04:34:00 Test Item Value Reference Range Interpretation Comments MPV (test code = MPV) 8.0 7.4-10.4 [place] [address]-12-06 04:34:00 Test Item Value Reference Range Interpretation Comments PT (test code = PT) 14.7 s 12.0-14.7 [place] [address]-12-06 04:34:00 Test Item Value Reference Range Interpretation Comments INR (test code = INR) 1.14 1 0.85-1.17 [place] [address]-12-06 04:34:00 Test Item Value Reference Range Interpretation Comments PTT (test code = PTT) 31.2 s 22.9-35.8 [place] [address]-12-06 04:34:00 Test Item Value Reference Range Interpretation Comments Segs (test code = Segs) 73.9 45.0-75.0 [place] [address]-12-06 04:34:00 Test Item Value Reference Range Interpretation Comments Lymphocytes (test code = Lymphocytes) 11.0 20.0-40.0 [place] [address]-12-06 04:34:00 Test Item Value Reference Range Interpretation Comments Monocytes (test code = Monocytes) 13.6 2.0-12.0 [place] [address]-12-06 04:34:00 Test Item Value Reference Range Interpretation Comments Eosinophils (test code = 0.7 See_Comment [A utomated message] The Eosinophils) system which ge nerated this result tra nsmitted reference range : <=4.0. The reference r christiano was not used to int erpret this result as normal/abnormal . [place] [address]-12-06 04:34:00 Test Item Value Reference Range Interpretation Comments Basophils (test code = 0.8 See_Comment [Aut omated message] The Basophils) system which ge nerated this result tra nsmitted reference range : <=1.0. The reference r christiano was not used to int erpret this result as normal/abnormal . [place] 222910-12-06 04:34:00 Test Item Value Reference Range Interpretation Comments Neutrophils # (test code = Neutrophils 7.2 1.5-8.1 #) [place] 222910-12-06 04:34:00 Test Item Value Reference Range Interpretation Comments Lymphocytes # (test code = Lymphocytes 1.1 1.0-5.5 #) [place] 222910-12-06 04:34:00 Test Item Value Reference Range Interpretation Comments Monocytes # (test code 1.3 See_Comment [Aut omated message] The = Monocytes #) system which generated this result tra nsmitted reference range : <=0.8. The reference r christiano was not used to int erpret this result as normal/abnormal . [place] 222910-12-06 04:34:00 Test Item Value Reference Range Interpretation Comments Eosinophils # (test code 0.1 See_Comment [A utomated message] The = Eosinophils #) system whic h generated this result tra nsmitted reference range : <=0.5. The reference r christiano was not used to int erpret this result as normal/abnormal . [place] 222910-12-06 04:34:00 Test Item Value Reference Range Interpretation Comments Basophils # (test code 0.1 See_Comment [Aut omated message] The = Basophils #) system which generated this result tra nsmitted reference range : <=0.2. The reference r christiano was not used to int erpret this result as normal/abnormal . [facility] SHOULDER 2+ VW [id number] 17:54:27 Comminuted distal clavicle fracture. EXAM: XR [...] in the aortic arch.IMPRESSIONComminuted distal clavicle fracture. [facility] VW [id number] 17:53:09 No acute bony abnormality. EXAM: XR [...] fracture or dislocation is seen.IMPRESSIONNo acute bony abnormality.[facility] Notes Date/Time Note Provider Source 2022-11-27 EXAM: MRI CERVICAL SPINE WITHOUT CONTRAST [facility] 05:40:00-00:00 DATE: 11/27/2022 Center INDICATION: - Rule out cervical spine stenosis. COMPARISON: MRI 09/05/2020; CT 11/26/2022 TECHNIQUE: Multiplanar, mult isequence, noncontrast MR imaging of the cervical spine. IV contrast: None FINDINGS: Numbering: There are 7 cervical, nonrib-bearing vertebrae. Alignment: Unchanged kyphosis. Bones: Degenerative marrow e eli at C5-6 has slightly progressed. C3-4 facet fusion. Vertebral body heights are maintained. Spinal cord: Indented at mul tiple levels from spinal canal narrowing as well as displaced from the kyphotic curvature. Focal abnormal spinal cord signal at C4-5 likely has a small component of volume lo ss that is more pronounced on the right (series 9001 image 25). Individual levels: Craniocervical junction: Intact. C2-C3: Posterior disc osteop hyte complex and ligamentum flavum thickening. Moderate spinal canal narrowing with dorsal indentation of the cervical spinal cord. No abnormal cord signal. Severe right face t arthropathy with severe right and mild left ne ural foraminal narrowing. C3-C4: Osseous fusion. No sp inal canal narrowing. Moderate neural foraminal narrowing from uncovertebral arthropathy. C4-C5: Posterior disc osteop hyte complex and ligamentum flavum thickening. Severe spinal canal stenosis. Abnormal spinal cord signal is more pronounced on the right and likely has some volume loss (seri es 9001 image 25). Uncoverte bral arthropathy with severe neural foraminal narrowing. C5-C6: Degenerative marrow e eli. Moderate posterior disc osteophyte complex. Ligamentum flavum thickening. Flattening of the cervical spinal cord with severe spinal canal narrowing. Uncovertebral arthropathy and severe neural foraminal narrowing. C6-C7: Mostly left-sided pos terior disc osteophyte complex. Ligamentum flavum thickening. Severe spinal canal narrowing. Left uncovertebral arthropathy and severe left neural foraminal narrowing. C7-T1: Facet arthropathy and anterolisthesis. No spinal canal or marked neural foraminal narrowing. Other: Paranasal sinus opacification. IMPRESSION: 1. Persistent kyphotic curva ture and C3-4 osseous fusion resulting in multilevel severe spinal canal narrowing and neural foraminal narrowing. 2. The most severe degenerat lyle changes are at C5-6 where there is severe spinal canal and neural foraminal narrowing. 3. Advanced adjacent segment degenerative changes with moderate to severe and severe spinal canal narrowing at C3-4 and C4-5, respectively. Likely focal abnormal spinal cord signal at C4-5 with suspecte d component of volume loss t hat may indicate chronicity but can be correlated for recent change in clinical symptoms. 4. Additional severe spinal canal narrowing at C 6-7. 2022-11-27 EXAM: CT BRAIN WITHOUT CONTRAST [facility] 01:29:43-00:00 DATE: 11/27/2022 Center INDICATION: - pain post-trauma. COMPARISON: CT head November 26 and 2022. TECHNIQUE: Axial CT images o f the brain were obtained. Sagittal and coronal reformats. IV contrast: None DLP: Refer to CT protocol form FINDINGS: Evolving subarachnoid hemorr kusum along the left frontal parasagittal sulci. Evolving subdural hematoma along the posterior falx and right tentorial leaflet. The subdural hematoma along the superior surf norah of the left side of the tentorium has increased in hyperdensity and measures 9m in maximal diameter. Mass effect on the adjacent brain parenchyma has not significantly changed. Chronic microvascular ischemic changes of the morales pratentorial white matter. The skull base, calvarium, a nd included facial bones are unremarkable. Interval hyperdensity in the left sphenoid sinus could represent a small amount of hemorrhage. This is unchanged compared to the im mediate prior study done on 11/26/2022 but new compared to the study done on 11/21/2022.Mucosal thickening was noted on the prior studies. No skull base fracture identified. IMPRESSION: 1. Interval evolution with i ncreased prominence of the subdural hematoma along the superior surface of the left side of the tentorium. No significant change in size or mass effect compared to the immediate prior study done on 11/26/2022. 2. Evolving left frontal parafalcine subarachnoi d hemorrhage. 3. Evolving posterior falcine and right tentoria l leaflet subdural hematoma. [place] SECTION: Neuro Above findings were communic ated to and acknowledged by Dr. Barriga via telephone at 11/27/2022 2:31 by Urbano Ashton MD 2022-11-27 EXAM: CT CERVICAL SPINE WITHOUT CONTRAST [facility] 00:49:03-00:00 DATE: 11/27/2022 0:49 Center INDICATION: Status post fall , pain after trauma. Following trauma transfer for higher level of care request for outside film interpretation CT cervical spine without contrast performed 11/26/2022 at 2044 hours from [facility] COMPARISON: None. TECHNIQUE: Volumetric CT of the cervical spine is acquired without contrast. Axial, coronal and sagittal images are provided. IV contrast: None. DLP: Refer to CT protocol form [place] SECTION: ER FINDINGS: The spine is imaged from the skull base to the l evel of T2/T3. White Spooler: Noncontributory. Bones: There is generalized decreased bone mineral dens ity. There is slight anterolisthe sis of C2 upon C3 which appears compensatory for the advanced degree of degenerative change below the level of C3 which is associated with straightening of mid cervical lordosis. There is no acute fracture or malalignment of th e cervical spine identified. Multilevel degenerative disc disease is present with marginal osteophyte formation, endplate sclerosis and severe disc space narrowing at C3-C7. Additional mild degenerative disc disease is present at T 2/T3. Posterior disc osteoph yte complex formation is present at C4-C5 and C5-C6. Advanced facet arthropathy i s seen throughout the cervical spine with ankylosis at C3-C4 on the left. Uncovertebral osteoarthritis is present at C4-C7. There is bony encroachment and narrowing of neuroforamina seen which is moderate on the left at C4-C5 and moderate bilaterally at C5-C6 and C6-C7. Soft tissues: There is opaci fication of the left portion of the sphenoid sinus. Aneurysmal dilatation of the ascending aorta is partially seen, measuring up to 4 cm. Vascular calcifications are present IMPRESSION: 1. There is no acute abnormality the cervical sp ine identified. 2. Multilevel degenerative d isc disease is present at C3-C7 associated with cervical spondylosis as described. 3. Aneurysmal dilatation of ascending aorta is partially seen with transverse diameter measuring approximately 4 cm. 4. There is generalized decreased bone mineral d ensity. 5. Vascular calcifications are present. 6. Agree with outside report. 2022-11-21 EXAM: XR RIGHT KNEE 3 VIEWS [facility] 06:10:00-00:00 DATE: 11/21/2022 6:10 Center INDICATION: - Trauma after fall COMPARISON: None. TECHNIQUE: 3 views of the knee FINDINGS: No acute fracture or malalignment is identified. 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 The hardware appears intact. There is no perihardware lucency identified. No knee joint effusion is present. No soft tissue abnormality is identified. IMPRESSION: 1. No acute abnormality. 2. Satisfactory appearance o f prior right total knee arthroplasty and resurfacing of the patella. [place] SECTION: ER 2022-11-21 EXAM: CT BRAIN WITHOUT CONTRAST [facility] 05:13:56-00:00 DATE: 11/21/2022 5:16 AM Center INDICATION: - SAH stability scan. COMPARISON: Outside CT head from 11/21/2022. TECHNIQUE: Axial CT images o f the brain were obtained. Sagittal and coronal reformats. IV contrast: None DLP: Refer to CT protocol form FINDINGS: Unchanged small amounts of s ubarachnoid hemorrhage along the left frontal sulci adjacent to the falx. Additional trace subdural hemorrhage is seen along the right posterior falx and layering along the tentorium. No significant midline shift. Moderate microvascular ischemic changes and volu me loss. Left posterior parietal scal p laceration and contusion. Left sphenoid sinus mucosal thickening IMPRESSION: 1. Unchanged subarachnoid he morrhage along the left frontal sulci adjacent to the falx. 2. Unchanged trace subdural hemorrhage along the right posterior falx and layering along the tentorium. No significant midline shift. 2020-09-05 EXAM: MRI CERVICAL SPINE WITHOUT CONTRAST [facility] 16:36:00-00:00 DATE: 09/05/2020 405 PM [facility] Cente r INDICATION: 79 years old Fem malu patient with given clinical indication of fall need better evaluation of spinal cord. COMPARISON: 09/05/2020 at 117AM TECHNIQUE: Multiplanar, mult isequence noncontrast MR imaging of the cervical spine. FINDINGS: As compared to prior study f rom same date 09/05/2020 at 1:17 AM, no interval adverse change. No definite spinal cord sign al abnormality to suggest spinal cord contusion or spinal cord compression. Small central disc protrusio n indenting the ventral thecal sac at the level of C5-C6 causing moderate spinal canal narrowing with residual thecal sac measures 6 to 7 mm in AP dimension. Remainder of the findings have been stable from prior study. IMPRESSION: 1. As compared to prior MRI of the cervical spine from same date 09/05/2020 at 1:17 AM, no interval adverse change. 2. No definite spinal cord s ignal abnormality to suggest spinal cord contusion or spinal cord compression. 3. Small central disc protru ever indenting the ventral thecal sac at the level of C5-C6 causing moderate spinal canal narrowing with residual thecal sac measures 6 to 7 mm in AP dimension. 4. Remainder of the findings have been stable fr om prior study. 2020-09-05 EXAM: CT CHEST WITH CONTRAST [facility] 06:30:20-00:00 EXAM: CT ABDOMEN AND PELVIS WITH CONTRAST Center DATE: 09/05/2020 5:12 [employer] INDICATION: - eval for T and L spine fx given C spine fx COMPARISON: None TECHNIQUE: Volumetric CT of the chest, abdomen and pelvis is acquired following intravenous administration of contrast. Axial, coronal and sagittal images are provided. IV contrast: 100 mL Omnipaque 350 Oral contrast: None. DLP: 3034 mGy-cm [place] SECTION: ER FINDINGS: White Spooler: Noncontributory. Lines and tubes: None. Lower Neck: Supraclavicular soft tissues are unr emarkable. Thoracic Aorta and Mediastin um: No mediastinal hematoma or thoracic aortic injury. Ectasia of the ascending thoracic aorta to 3.4 cm. Coronary vessel calcifications are present. No acute cardiac or pericardial abnormality. Lungs, Pleura, Diaphragm: No pulmonary contusions. Scattered bilateral subsegmental atelectasis. No pleural effusion or pneumothorax. No diaphragmatic injury. Liver and biliary tree: Norm al. No injury. Biliary dilatation as expected postcholecystectomy. Gallbladder: Surgically absent. Pancreas: Pancreas is atrophic and fatty replace d. No injury. Spleen: Normal. No injury. Adrenals: Normal. No injury. Kidneys and ureters: Moderat e bilateral perinephric fat stranding is nonspecific. Numerous bilateral simple appearing fluid density renal cysts measuring up to 2.9 cm. No injury. Bladder: Normal. No injury. Reproductive organs: No injury. Gastrointestinal tract: Dive rticulosis without diverticulitis. Otherwise normal. No bowel injury. Peritoneum and retroperitoneum: No fluid collect ions or free air. Lymph nodes: Normal. Vasculature: No vascular inj ury. 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 Severe aortic atherosclerosis. Spine/ Bones: No acute abnor mality of the spine. No other bony injury. Severe multilevel degenerative changes of the thoracic and lumbar spine. Ankylosis at L1-2. Grade 1 L4-L5 anterolisthesis. Mild wid ening of the right facet migue nt at L1-L2 appears chronic, secondary to degenerative change and partial ankylosis at this level. Grade I anterolisthesis at T10 on T11 and facet arthropathy causes mild canal stenosis without associated cord impingement. Soft tissues: Mild bilateral subcutaneous flank edema. IMPRESSION: 1. No acute traumatic abnormality of the chest a bdomen or pelvis. 2. Severe degenerative changes of the thoracic a nd lumbar spine. 3. 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 4. Colonic diverticulosis without acute divertic ulitis. 2020-09-05 EXAM: XR CHEST 1 VIEW [facility] 06:08:00-00:00 DATE: 09/05/2020 6:14 T[facility]AGE [facility]IND[facility] Center INDICATION: - preop COMPARISON: None. TECHNIQUE: AP supine chest. FINDINGS: Lines, tubes and hardware: Left shoulder arthrop lasty noted. Lungs and pleura: Pulmonary vascularity is normal. Low lung volumes are present, with bibasilar subsegmental atelectasis and vascular crowding. There is a moderately elevated right hemidiaphragm. The co stophrenic sulci are sharp without effusion. No pneumothorax is identified. Heart and mediastinum: The h eart size is top normal. The thoracic aorta is tortuous. Bones and soft tissues: Age- indeterminate, displaced right distal clavicular fracture. IMPRESSION: 1. Low lung volumes, otherwise no acute abnormal ity. 2. Age-indeterminate displaced distal right clav icular fracture. 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 FINDINGS: Overlying splint material obscures bon e and soft tissue detail. Generalized osteopenia. No acute fracture or mal alignment is identified. Degenerative changes at the first CMC joint and triscaphe joint. Triangular fibrocartilage calcification noted. Mild wrist swelling. IMPRESSION: Overlying splint obscures fine detail, no definite fracture is identified. UT SECTION: ER 2020-09-05 EXAM: MAGNETIC RESONANCE IMAGING CERVICAL SPINE WITHOUT CONTRAST. [facility] 00:50:17-00:00 DATE: 09/04/2020 10:05 [address] ter INDICATION: - concern for ligamentous injury aft er mechanical fall COMPARISON: CT of the cervic al spine done at an outside facility on 09/04/2020. TECHNIQUE: Multiplanar multi sequence magnetic resonance imaging images of the cervical spine. IV Contrast: None. FINDINGS: Mild prevertebral edema is s een from the C3-C6 level. There is no edema in the vertebral bodies to indicate a vertebral fracture. Mild edema is noted around t he right C5-C6 facet and there is minimal edema around the left C5-C6 facet. This is suggestive of facet strain. The facet alignment is maintained. The patient has fusion of th e bilateral C4-C5 facets seen on the prior computed tomography scan. Multilevel cervical spondylo sis which is most pronounced below the C4 level results in straightening of the cervical spine. Mild to moderate central can al stenosis is noted at C5-C6 and C6-C7. Moderate to severe bilateral neural foraminal narrowing is seen at C5-C6. The craniocervical junction appears unremarkable . There is no cord signal abnormality. IMPRESSION: 1. Mild prevertebral edema f rom C3 through C6 indicating ligamentous strain. Mild edema is noted around the bilateral C5-C6 facets. Moderate bilateral facet disease is noted. 2. There is no edema in the vertebral bodies to indicate a fracture. 3. Fusion of the bilateral C4-C5 facets. 4. Lower cervical spondylosi s causing [id number]-[id number] canal stenosis at C5-C6 and C6-C7. There is no cord signal abnormality identified. 2020-09-04 [facility] 21:38:00-00:00 EXAMINATION: CT head without contrast Center DATE: 09/04/2020 INDICATION: Concussion. Fall. FINDINGS: Noncontrast CT images of the head are performed at an outside institution and submitted for reinterpretation following transfer. There is no intracranial hemorrhage or other bra in injury. The skull and sinuses are intact. IMPRESSION: No acute intracranial abnormality. UT SECTION: Neuro
[2023-04-13 09:45] LABS: Potassium 3.3 mEq/L (3.5-5.1); Troponin High Sensitivity 20.6 pg/mL (<58.9)
--- NOTE | 2023-04-13 10:16 | RAD REPORT ---
EXAM DESCRIPTION: RADChest Single View04/13/2023 9:36 am CLINICAL HISTORY: CHEST PAIN COMPARISON: Chest Single View dated 03/05/2023; Chest Single View dated 01/20/2023; Chest Pa And Lat (2 Views) dated 12/29/2022; Chest Single View dated 10/03/2022 TECHNIQUE: Portable AP view of the chest. FINDINGS: The lungs are clear, with stable bibasilar atelectasis, and elevated right hemidiaphragm. No pneumothorax or effusion. The cardiomediastinal contours are unremarkable. IMPRESSION: No acute cardiopulmonary process.
--- NOTE | 2023-04-13 10:18 | RAD REPORT ---
EXAM DESCRIPTION: Ribs Right - 04/13/2023 9:37 am CLINICAL HISTORY: CHEST PAIN COMPARISON: Chest Single View dated 04/13/2023 TECHNIQUE: Right ribs, 3 views. FINDINGS: No displaced rib fracture is evident. No aggressive rib lesion. No underlying pneumothorax, effusion, infiltrate or pulmonary contusion. IMPRESSION: Negative right rib series.
--- NOTE | 2023-04-13 10:43 | ER ---
Nurse's Notes [facility] Name: Radha Bentley Age: 82 yrs Sex: Female : 1940 Arrival Date: 04/13/2023 Time: 08:43 Bed 5 Private MD: Diagnosis: Acute kidney failure, unspecified-acute on chronic Presentation: 04/13 08:55 Chief complaint: Patient states: Fell from standing yesterday and today c/o R sided ss chest wall/ rib pain. Skin tear noted to R upper arm and bruising noted to L hip. Coronavirus screen: Client denies travel out of the [place] in the last 14 days. Ebola Screen: Patient denies exposure to infectious person. Patient denies travel to an Ebola-affected area in the 21 days before illness onset. Initial Sepsis Screen: Does the patient meet any 2 criteria? No. Patient's initial sepsis screen is negative. Does the patient have a suspected source of infection? No. Patient's initial sepsis screen is negative. Risk Assessment: Do you want to hurt yourself or someone else? Patient reports no desire to harm self or others. Onset of symptoms was April 12, 2023. 08:55 Method Of Arrival: Wheelchair ss 08:55 Acuity: VAIBHAV 3 ss Historical: - Allergies: 08:58 Avelox; ss 08:58 Band-aid adhesive; ss - PMHx: 08:58 ADD/ADHD; Hyperlipidemia; Heart Murmur; COPD; Hypertension; Hypothyroidism; kidney ss disease; - PSHx: 08:58 bilateral knee replacement; breast reduction; Cholecystectomy; Shoulder replacment; ss - Immunization history:: Client reports receiving the 2nd dose of the Covid vaccine. - Social history:: Smoking status: Patient denies any tobacco usage or history of. Screenin:50 [facility] ED Fall Risk Assessment (Adult) History of falling in the last 3 months, ss including since admission No falls in past 3 months (0 pts). Abuse screen: Denies threats or abuse. Denies injuries from another. Nutritional screening: No deficits noted. Tuberculosis screening: Never had TB. Assessment: 08:50 General: Appears in no apparent distress. Behavior is calm, cooperative. Pain: ss Complains of pain in right hip and right lateral anterior chest and right lateral posterior chest. Pain: Pain currently is 7 out of 10 on a pain scale. at worst was 9 out of 10 on a pain scale. Pain began yesterday after falling Is continuous, Aggravated by deep breathing. Pain: Pain does not radiate. Neuro: Level of Consciousness is awake, alert, obeys commands, Oriented to person, place, time. Respiratory: Airway is patent Respiratory effort is even, unlabored, Respiratory pattern is regular, symmetrical. GI: Patient currently denies nausea, vomiting. EENT: Throat is clear. Derm: Bruising that is dark purple, on R hip area. Derm: Injury Description: skin tear noted to posterior aspect of R upper arm. No active bleeding. 09:45 Reassessment: Patient appears in no apparent distress at this time. Patient and/or ss family updated on plan of care and expected duration. Pain level reassessed. 10:45 Reassessment: Patient is alert, oriented x 3, equal unlabored respirations, skin ss warm/dry/pink. General: Appears in no apparent distress. Respiratory: Respiratory effort is even, unlabored. 11:36 Reassessment: Attempted to call report. Room is not clean at this time. Nurse will call ss back. Vital Signs: 08:55 BP 136 / 86; Pulse 69; Resp 20; Temp 97; Pulse Ox 98% on R/A; Weight 79.38 kg; Height 4 ss ft. 11 in. ; Pain 7/10; 11:05 BP 125 / 56; Pulse 60; Pulse Ox 95% on R/A; ss 11:28 BP 124 / 59; Pulse 62; Resp 18; Temp 97.4; Pulse Ox 95% on R/A; ph 08:55 Body Mass Index 35.35 (79.38 kg, 149.86 cm) ss 08:55 Pain Scale: Adult ss ED Course: 08:47 Patient arrived in ED. ts1 08:47 Alycia Euceda FNP-C is PHCP. kb 08:47 Ady Cuellar MD is Attending Physician. kb 08:50 Patient maintains SpO2 saturation greater than 95% on room air. ss 08:58 Triage completed. ss 08:58 Arm band placed on right wrist. ss 08:59 Arlene Butts, ALAN is Primary Nurse. ss 09:12 CBC with Automated Diff Sent. mm9 09:12 Troponin High Sensitivity Sent. mm9 09:12 Basic Metabolic Panel Sent. mm9 09:12 Basic Metabolic Panel Sent. mm9 09:12 CBC with Diff Sent. mm9 09:12 Troponin HS Sent. mm9 09:12 Initial lab(s) drawn, by me, sent to lab. EKG done, by ED staff, reviewed by Ady Cuellar MD. Inserted saline lock: 22 gauge in right antecubital area, using aseptic technique. Blood collected. 09:13 Patient has correct armband on for positive identification. Placed in gown. Bed in low mm9 position. Call light in reach. Side rails up X2. Warm blanket given. Client placed on continuous cardiac and pulse oximetry monitoring. NIBP monitoring applied. aircraft engine mechanic overhaul on. Pulse ox on. NIBP on. 09:38 XRAY Chest (1 view) In Process Unspecified. EDMS 09:38 Ribs Right XRAY In Process Unspecified. EDMS 10:42 Villa Mann MD is Hospitalizing Provider. kb 11:18 No provider procedures requiring assistance completed. Patient admitted, IV remains in ss place. Administered Medications: No medications were administered Medication: 08:50 VIS not applicable for this client. ss Outcome: 10:42 Decision to Hospitalize by Provider. kb 11:06 Condition: good ss 11:18 Instructed on the need for admit. ss 12:22 Patient left the ED. [email or web address] Signatures: Dispatcher [employer] EDMS Alycia Euceda, STEAM AND POWER SUPERINTENDENT-Maria G MEDINAP-Arlene Hu, RN RN Gia Pratt RN RN Deanna Avila mm9 Nba, Mayi Ray RN RN mb9 Sariah Alexander, ROHIT BEE ts1
--- NOTE | 2023-04-13 10:43 | EDPHYS ---
Physician Documentation [facility] Name: Radha Bentley Age: 82 yrs Sex: Female : 1940 Arrival Date: 04/13/2023 Time: 08:43 Bed 5 Private MD: ED Physician Ady Cuellar HPI: 04/13 09:07 This 82 yrs old Female presents to ER via Wheelchair with complaints of Chest Pain. kb 09:07 Details of fall: The patient fell from an upright position, while walking. Onset: The kb symptoms/episode began/occurred yesterday. Associated injuries: The patient sustained injury to the chest, specifically the right lateral posterior chest and right lateral anterior chest, pain with breathing, pain with movement, tenderness. Severity of symptoms: At their worst the symptoms were moderate, in the emergency department the symptoms are unchanged. The patient has not experienced similar symptoms in the past. The patient has not recently seen a physician. Pt reports she tripped off the curb at [place] yesterday and fell onto right side. Came in today for continued right lateral chest wall pain. . Historical: - Allergies: 08:58 Avelox; ss 08:58 Band-aid adhesive; ss - PMHx: 08:58 ADD/ADHD; Hyperlipidemia; Heart Murmur; COPD; Hypertension; Hypothyroidism; kidney ss disease; - PSHx: 08:58 bilateral knee replacement; breast reduction; Cholecystectomy; Shoulder replacment; ss - Immunization history:: Client reports receiving the 2nd dose of the Covid vaccine. - Social history:: Smoking status: Patient denies any tobacco usage or history of. ROS: 09:06 Constitutional: Negative for fever, chills, and weight loss. kb 09:06 Cardiovascular: Positive for chest pain, with movement, of the right lateral anterior chest and right lateral posterior chest. 09:06 All other systems are negative. Exam: 09:05 Constitutional: This is a well developed, well nourished patient who is awake, alert, kb and in no acute distress. Head/Face: Normocephalic, atraumatic. Eyes: Pupils equal round and reactive to light, extra-ocular motions intact. Lids and lashes normal. Conjunctiva and sclera are non-icteric and not injected. Cornea within normal limits. Periorbital areas with no swelling, redness, or edema. ENT: Moist Mucous membranes Cardiovascular: Regular rate and rhythm with a normal S1 and S2. No gallops, murmurs, or rubs. No pulse deficits. Respiratory: Respirations even and unlabored. No increased work of breathing. Talking in full sentences Abdomen/GI: Soft, non-tender. No distention MS/ Extremity: Pulses equal, no cyanosis. Neurovascular intact. Full, normal range of motion. Neuro: Awake and alert, GCS 15, oriented to person, place, time, and situation. Moves all extremities. Normal gait. 09:05 Chest/axilla: Inspection: normal, Palpation: tenderness, of the right lateral posterior chest and right lateral anterior chest, that totally reproduces the patient's complaints. 09:05 Skin: injury, contusion(s), that are superficial, of the right hip, skin tear right upper arm. 09:09 ECG was reviewed by the Attending Physician. marvin Vital Signs: 08:55 BP 136 / 86; Pulse 69; Resp 20; Temp 97; Pulse Ox 98% on R/A; Weight 79.38 kg; Height 4 ss ft. 11 in. ; Pain 7/10; 11:05 BP 125 / 56; Pulse 60; Pulse Ox 95% on R/A; ss 11:28 BP 124 / 59; Pulse 62; Resp 18; Temp 97.4; Pulse Ox 95% on R/A; ph 08:55 Body Mass Index 35.35 (79.38 kg, 149.86 cm) ss 08:55 Pain Scale: Adult ss MDM: 08:47 Patient medically screened. kb 09:07 Data reviewed: vital signs, nurses notes. kb 09:18 Differential diagnosis: contusion, fracture, skin tear, hematoma. kb 10:33 Consideration of Admission/Observation Patient was admitted/placed on observation. marvin Management of patient was discussed with the following: Primary Care Provider: Dr Mann accepts pt for admission. Counseling: I had a detailed discussion with the patient and/or guardian regarding: the historical points, exam findings, and any diagnostic results supporting the discharge/admit diagnosis, lab results, radiology results, the need for further work-up and treatment in the hospital. Admission orders: after a detailed discussion of the patient's condition and case, the admit orders are written by me. 10:43 Management of patient was discussed with the following: Pig Sticker: Call placed to Dr kb Alroumah, awaiting callback. 11:41 Management of patient was discussed with the following: Primary Care Provider: marvin Discussed case with Dr Marlow. 04/13 08:51 Order name: Basic Metabolic Panel; Complete Time: 09:47 kb 04/13 08:51 Order name: CBC with Diff; Complete Time: 09:33 kb 04/13 08:51 Order name: Troponin HS; Complete Time: 09:47 kb 04/13 09:05 Order name: Basic Metabolic Panel EDMS 04/13 09:05 Order name: CBC with Automated Diff EDMS 04/13 09:05 Order name: Troponin High Sensitivity EDMS 04/13 08:51 Order name: XRAY Chest (1 view); Complete Time: 10:18 kb 04/13 08:51 Order name: Ribs Right XRAY; Complete Time: 10:25 kb 04/13 08:51 Order name: EKG; Complete Time: 09:05 kb 04/13 09:05 Order name: EKG Electrocardiogram; Complete Time: 09:12 EDMS 04/13 08:51 Order name: Cardiac monitoring; Complete Time: 08:55 kb 04/13 08:51 Order name: EKG - Nurse/Tech; Complete Time: 08:55 kb 04/13 08:51 Order name: IV Saline Lock; Complete Time: 09:12 kb 04/13 08:51 Order name: Labs collected and sent; Complete Time: 09:12 kb 04/13 08:51 Order name: O2 Per Protocol; Complete Time: 08:55 kb 04/13 08:51 Order name: O2 Sat Monitoring; Complete Time: 08:55 kb EC:09 Rate is 65 beats/min. Rhythm is regular. QRS [place] is Normal. AL interval is prolonged kb at 220 msec. QRS interval is normal at 126 msec. QT interval is normal at 490 msec. Administered Medications: No medications were administered Disposition Summary: 04/13/23 10:42 Hospitalization Ordered Hospitalization Status: Observation kb Provider: Villa Mann Location: Telemetry/MedSurg (observation) kb Condition: Stable kb Problem: new kb Symptoms: are unchanged kb Bed/Room Type: Standard Room Assignment: 404(04/13/23 11:21) eb Diagnosis - Acute kidney failure, unspecified - acute on chronic kb Forms: - Medication Reconciliation Form kb - SBAR form kb Signatures: Dispatcher [employer] EDMS Alycia Euceda, CONSERVATION OFFICER-C CONSERVATION OFFICER-Ckb Arlene Butts, RN RN Agustina Wilson Corrections: (The following items were deleted from the chart) 09:10 09:05 Ribs Right ordered. EDMS EDMS 11:19 10:42 kb eb 11:21 11:19 428 eb eb
[2023-04-13] MEDS: NA CHLORIDE 0.9% 1,000 ML IV SCH (13:50)
[2023-04-13] MEDS ORDERED: ACETAMINOPHEN 325 MG TABLET PO PRN (14:22)
[2023-04-13] MEDS ORDERED: MELATONIN 5 MG PO PRN (14:22)
[2023-04-13 14:36] VITALS: BMI 35.3
[2023-04-13] MEDS: HYDROCODONE/APAP 5/325 MG TAB PO PRN ×2 (14:50→19:37)
[2023-04-13] MEDS ORDERED: FAMOTIDINE 20 MG TAB PO SCH (15:00)
--- NOTE | 2023-04-13 15:05 | P.CNS ---
Date of Consult: 04/13/23 Reason for Consult: CLIFF, CKD4 Requesting Physician: Villa Mann Chief Complaint: Fall History of Present Illness: 82F w/ PMHx of CKD4 presumed to be 2/2 Htn nephrosclerosis, baseline SCr 1.9 (GFR 25-26 mL/min), severe pulmonary hypertension, vitamin D deficiency, urinary incontinence, and hypertension, who p/w R chest pain. She had mechanical fall while walking today and had blunt trauma to right chest. She is admitted for fu rther evaluation and management. She is referred to nephrology for CLIFF. Serum creatinine is 3.6 today. She is receiving IV fluids via normal saline 75 cc/h. Allergies moxifloxacin HCl [From Avelox] Allergy (Intermediate, Verified 09/20/22 19:25) Itching/Hives/Rash adhesive [Adhesive] Adverse Reaction (Intermediate, Verified 09/20/22 19:25) Rash band-aid adhesive Allergy (Uncoded 10/03/17 08:51) Unknown Home Medications: Escitalopram Oxalate [Lexapro] 20 mg PO BID 11/19/11 Levothyroxine [Synthroid*] 0.112 mg PO DAILY 11/19/11 Ropinirole HCl 4 mg PO BID 11/19/11 buPROPion HCL [Bupropion HCl Sr] 150 mg PO BID 06/17/19 Pantoprazole [Protonix Tab*] 1 tab PO BID 06/28/21 Famotidine 40 mg PO BEDTIME 09/21/22 Melatonin 5 mg PO PRN PRN 03/06/23 Donepezil HCl 10 mg PO DAILY 04/13/23 Furosemide [Lasix*] 80 mg PO DAILY 04/13/23 Lovastatin 20 mg PO DAILY 04/13/23 Primidone 50 mg PO BEDTIME 04/13/23 - Past Medical/Surgical History Diabetic: No -: Hypertension -: Dyslipidemia -: Hypothyroidism -: Restless leg syndrome -: Gastroesophageal reflux disease -: depression -: Chronic diastolic congestive heart failure -: CKD 4 -: Arthritis -: Eczema -: Bilateral knee replacement -: left shoulder replacement 2011 -: breast reduction -: gastric banding -: removal of adhesions and scar tissue -: benein tumor removal Psychosocial/ Personal History: Patient is retired, lives at home with her family - Family History MOM Medical History: Cancer Notes: BREAST FATH Medical History: Cancer Notes: [facility] - Social History Smoking Status: Unknown if ever smoked Alcohol use: No CD- Drugs: No Caffeine use: Yes Place of Residence: Home Review of Systems General: Weakness Eyes: Unremarkable ENT: Unremarkable Respiratory: Unremarkable Cardiovascular: Chest Pain Gastrointestinal: Unremarkable Genitourinary: Unremarkable Musculoskeletal: Atrophy Integumentary: Unremarkable Neurological: Weakness Lymphatics: Unremarkable Physical Examination Temp Pulse Resp BP Pulse Ox 97.3 F 69 16 131/62 94 04/13/23 13:07 04/13/23 13:07 04/13/23 13:07 04/13/23 13:07 04/13/23 13:07 General: Other (chronically ill-appearing) HEENT: Atraumatic, Normocephalic Neck: Supple, JVD not distended Respiratory: Other (symmetric chest expansion) Cardiovascular: No rubs, No murmurs Gastrointestinal: Soft and benign, No guarding Musculoskeletal: No clubbing Integumentary: No warmth Neurological: Normal tone Lymphatics: No axilla or inguinal lymphadenopathy Urinary: Other (no bladder distention) External genitalia: Deferred Rectal: Deferred Laboratory Data (last 24 hrs) 04/13/23 09:08: WBC 8.50, Hgb 9.4 L, Hct 29.7 L, Plt Count 233 04/13/23 09:08: Sodium 139, Potassium 3.3 L, BUN 33 H, Creatinine 3.57 H, Glucose 157 H 04/13/23 09:02: Sodium Cancelled, Potassium Cancelled, BUN Cancelled, Creatinine Cancelled, Glucose Cancelled 04/13/23 09:02: WBC Cancelled, Hgb Cancelled, Hct Cancelled, Plt Count Cancelled Conclusions/Impression: # CLIFF, prerenal state vs CRS1 SCr 3.6 on adm Hx of urinary incontinence, on oxybutynin at home F/u urine studies & renal US Cont NS gtt 75 cc/hr # CKD4 presumed to be 2/2 Htn nephrosclerosis Baseline SCr 1.9 (GFR 25-26 mL/min) as of March 2023 Monitor renal panel # Severe pulmonary hypertension Has 1+ BLE edema TTE in March 2023 showed normal LVEF 60-65% and mild grade 1 diastolic dysfunction but with severe pulmonary hypertension with RVSP greater than 60 mmHg Per other services Resume jerad + lasix when CLIFF improved # Essential Htn Cont current med regimen # HypoK KCl repletion prn # Anemia Monitor CBC # Vitamin D deficiency Resume vit D suppl # R chest pain s/p mechanical fall Per other services # Hyperuricemia Hold allopurinol
[2023-04-13] MEDS ORDERED: HOME MED 1 EA UNK (Famotidine [Famotidine] 40 MG Tablet) PO SCH (21:00)
[2023-04-13] MEDS: PRIMIDONE 50 MG TAB PO SCH (21:00)
[2023-04-13] MEDS: BUPROPRION HCL S.R. 150MG TAB PO SCH (21:00)
[2023-04-13] MEDS ORDERED: MELATONIN 5 MG TABLET PO PRN (21:00)
[2023-04-13] MEDS: ATORVASTATIN 10 MG TAB PO SCH (21:38)
[2023-04-13] MEDS: PANTOPRAZOLE 40MG TABLET PO SCH (21:39)
[2023-04-13] MEDS: ESCITALOPRAM 20 MG TAB PO SCH (21:39)
[2023-04-13] MEDS: DONEPEZIL HCL 5 MG TAB PO SCH (21:39)
[2023-04-13] MEDS: ROPINIROLE HCL 1 MG TAB PO SCH (21:44)
[2023-04-14] MEDS: NA CHLORIDE 0.9% 1,000 ML IV SCH (01:20)
[2023-04-14] MEDS: HYDROCODONE/APAP 5/325 MG TAB PO PRN ×4 (02:45→23:56)
[2023-04-14 03:45] LABS: Absolute Lymphocytes (CBC) 1.1 K/uL (0.7-4.9); Hematocrit 28.4 % (36.0-45.0); Lymphocytes % 16.9 % (15.3-44.8); MCV 86.2 fL (80-100); MPV 7.3 fL (7.6-11.3); RBC Red Blood Cell Count 3.29 M/uL (3.86-4.86)
[2023-04-14 04:02] LABS: Potassium 3.4 mEq/L (3.5-5.1)
[2023-04-14] MEDS: LEVOTHYROXINE SOD 0.112 MG TAB PO SCH (06:33)
[2023-04-14] MEDS: ROPINIROLE HCL 1 MG TAB PO SCH ×2 (08:34→20:11)
[2023-04-14] MEDS: BUPROPRION HCL S.R. 150MG TAB PO SCH ×2 (08:34→20:10)
[2023-04-14] MEDS: ESCITALOPRAM 20 MG TAB PO SCH ×2 (08:34→20:09)
[2023-04-14] MEDS: PANTOPRAZOLE 40MG TABLET PO SCH ×2 (08:34→20:09)
--- NOTE | 2023-04-14 08:54 | RAD REPORT ---
EXAM DESCRIPTION: US - Renal Ultrasound-Complete - 04/14/2023 6:16 am CLINICAL HISTORY: CLIFF, CKD4, assess for hydronephrosis CKD changes COMPARISON: Renal Ultrasound-Complete dated 09/21/2022 FINDINGS: Both kidneys are somewhat small in shape. Echogenicity is within normal limits. Benign alejandra ateral renal cysts. The right kidney measures 7.3 x 4.2 cm. No hydronephrosis, focal mass or perinephric fluid. The left kidney measures 7.9 x 4.1 cm. No hydronephrosis, focal mass or perinephric fluid. The urinary bladder is incompletely distended without gross abnormality seen. IMPRESSION: Bilateral benign renal cysts are present, otherwise negative study.
[2023-04-14] MEDS ORDERED: HOME MED 1 EA UNK (Lovastatin [Lovastatin] 20 MG Tablet) PO SCH (09:00)
[2023-04-14] MEDS ORDERED: HOME MED 1 EA UNK (Donepezil Hcl [Donepezil Hcl] 10 MG Tablet) PO SCH (09:00)
[2023-04-14] MEDS ORDERED: FUROSEMIDE 40 MG TABLET PO SCH ×2 (09:00→21:00)
--- NOTE | 2023-04-14 12:58 | P.PN ---
Subjective Date of Service: 04/14/23 Chief Complaint: Fall Subjective: No new changes Physical Examination - Vital Signs Temperature: 96.9 F Blood Pressure: 142/64 Pulse: 61 Respirations: 18 Pulse Ox (%): 93 - Physical Exam General: Other (chronically ill-appearing) HEENT: Atraumatic, Normocephalic Neck: Supple Respiratory: Other (symmetric chest expansion) Cardiovascular: No rubs, No murmurs Gastrointestinal: Soft and benign, No guarding Musculoskeletal: No clubbing Integumentary: No warmth Neurological: Normal tone Urinary: Other (no bladder distention) External genitalia: Deferred Rectal: Deferred Assessment And Plan - Plan # CLIFF, prerenal state vs CRS1 SCr 3.6 on adm, improved to 2.9 Hx of urinary incontinence, on oxybutynin at home BNP sig elevated Dc NS gtt # HypoK KCl 40 meq po x 1 Resume jerad as below # CKD4 presumed to be 2/2 Htn nephrosclerosis Baseline SCr 1.9 (GFR 25-26 mL/min) as of March 2023 Monitor renal panel # Severe pulmonary hypertension Has 1+ BLE edema TTE in March 2023 showed normal LVEF 60-65% and mild grade 1 diastolic dysfunction but with severe pulmonary hypertension with RVSP greater than 60 mmHg Per other services Resume jerad at 25 mg po bid Lasix at 20 mg po bid # Essential Htn Cont current med regimen # Anemia Monitor CBC # Vitamin D deficiency Resume vit D suppl # R chest pain s/p mechanical fall Per other services # Hyperuricemia Hold allopurinol
[2023-04-14] MEDS ORDERED: POTASSIUM CL SA 10 MEQ TAB PO ONE (13:11)
[2023-04-14] MEDS: SPIRONOLACTONE 25 MG TABLET PO SCH ×2 (14:16→20:14)
--- NOTE | 2023-04-14 15:41 | PN ---
Date of Progress Note: 04/14/2023 The patient states she feels considerably better. She is undergoing some physical therapy. Her crea tinine has improved somewhat. She is seen by Nephrology. I was adjusting her fluids and medication. If in fact the creatinine which was in the 3s, now down to the 2s goes down under 2, she probably c ould be discharged in the a.m. HR/MODL Voice ID: [id number] Report ID: [id number]
--- NOTE | 2023-04-14 15:47 | PN ---
Date of Progress Note: 04/13/2023 Addendum: The patient was also seen by Cardiology who felt that unlikely the cardiologica l event and the echo did show some changes, however, not compatible with his present status, which ma kes it more likely a vascular problem. HR/MODL Voice ID: [id number] Report ID: [id number]
[2023-04-14 16:09] LABS: UR PROTEIN 28.3 mg/dL (<11.9); Urine Protein/Creatinine Ratio 0.31 ratio (<0.15)
[2023-04-14] MEDS: DONEPEZIL HCL 5 MG TAB PO SCH (20:10)
[2023-04-14] MEDS: ATORVASTATIN 10 MG TAB PO SCH (20:10)
[2023-04-14] MEDS: PRIMIDONE 50 MG TAB PO SCH (20:12)
[2023-04-15 01:17] VITALS: O2SAT 94
[2023-04-15 05:03] LABS: Absolute Lymphocytes (CBC) 1.3 K/uL (0.7-4.9); Hematocrit 28.2 % (36.0-45.0); Lymphocytes % 16.3 % (15.3-44.8); MCV 87.4 fL (80-100); MPV 7.6 fL (7.6-11.3); RBC Red Blood Cell Count 3.23 M/uL (3.86-4.86)
[2023-04-15 05:16] LABS: Potassium 4.4 mEq/L (3.5-5.1)
[2023-04-15] MEDS: LEVOTHYROXINE SOD 0.112 MG TAB PO SCH (05:59)
[2023-04-15] MEDS: HYDROCODONE/APAP 5/325 MG TAB PO PRN ×2 (06:06→11:00)
[2023-04-15] MEDS ORDERED: PANTOPRAZOLE 40MG TABLET PO SCH (07:30)
[2023-04-15] MEDS: ROPINIROLE HCL 1 MG TAB PO SCH (08:22)
[2023-04-15] MEDS: FUROSEMIDE 40 MG TABLET PO SCH ×2 (08:23→15:20)
[2023-04-15] MEDS: SPIRONOLACTONE 25 MG TABLET PO SCH ×2 (08:23→15:19)
[2023-04-15] MEDS: ESCITALOPRAM 20 MG TAB PO SCH (08:23)
[2023-04-15] MEDS: BUPROPRION HCL S.R. 150MG TAB PO SCH (08:31)
[2023-04-15] MEDS ORDERED: SPIRONOLACTONE 25 MG TABLET PO SCH (09:00)
--- NOTE | 2023-04-15 09:53 | P.DS ---
Admission Date: 04/13/23 Discharge Date: 04/15/23 Disposition: ROUTINE DISCHARGE Discharge Condition: FAIR Reason for Admission: Fall Brief History of Present Illness: Patient is 82 years of age admitted with a fall bruise on the right hip Hospital Course: Patient was admitted seen by nephrology complicated stay renal function was mildly abnormal to her baseline and had a bruise on the right thigh and buttock at time of discharge patient alert oriented pain in the chest had declined bruising on the right hip looks stable globin was also stable ready to go home pressure mildly elevated Home medication list reviewed resume Vital Signs/Physical Exam: Temp Pulse Resp BP Pulse Ox 97.2 F 56 17 150/60 H 96 04/15/23 08:00 04/15/23 08:00 04/15/23 08:00 04/15/23 08:00 04/15/23 08:00 Laboratory Data at Discharge: WBC 7.70 thou/uL (4.3-10.9) 04/15/23 04:16 Hgb 9.0 g/dL (12.0-15.0) L 04/15/23 04:16 Hct 28.2 % (36.0-45.0) L 04/15/23 04:16 Plt Count 214 thou/uL (152-406) 04/15/23 04:16 Sodium 138 mEq/L (136-145) 04/15/23 04:16 Potassium 4.4 mEq/L (3.5-5.1) D 04/15/23 04:16 BUN 33 mg/dL (7-18) H 04/15/23 04:16 Creatinine 2.85 mg/dL (0.55-1.02) H 04/15/23 04:16 Glucose 118 mg/dL (74-106) H 04/15/23 04:16 Home Medications: Escitalopram Oxalate [Lexapro] 20 mg PO BID 11/19/11 Levothyroxine [Synthroid*] 0.112 mg PO DAILY 11/19/11 Ropinirole HCl 4 mg PO BID 11/19/11 buPROPion HCL [Bupropion HCl Sr] 150 mg PO BID 06/17/19 Pantoprazole [Protonix Tab*] 1 tab PO BID 06/28/21 Famotidine 40 mg PO BEDTIME 09/21/22 Melatonin 5 mg PO PRN PRN 03/06/23 Donepezil HCl 10 mg PO DAILY 04/13/23 Furosemide [Lasix*] 80 mg PO DAILY 04/13/23 Lovastatin 20 mg PO DAILY 04/13/23 Primidone 50 mg PO BEDTIME 04/13/23 Followup: Villa Mann MD [Primary Care Provider] -
[2023-04-15 12:05] VITALS: BP 132/63; TEMP 97.7
--- NOTE | 2023-04-15 14:28 | P.PN ---
Subjective Date of Service: 04/15/23 Chief Complaint: Fall Subjective: No new changes Physical Examination - Vital Signs Temperature: 97.7 F Blood Pressure: 132/63 Pulse: 60 Respirations: 18 Pulse Ox (%): 98 - Physical Exam General: Other (chronically ill-appearing) HEENT: Atraumatic Neck: Supple, JVD not distended Respiratory: Other (symmetric chest expansion) Cardiovascular: No rubs, No murmurs Gastrointestinal: Soft and benign, No guarding Musculoskeletal: No clubbing Integumentary: No warmth Neurological: Normal tone Urinary: Other (no bladder distention) External genitalia: Deferred Rectal: Deferred Assessment And Plan - Plan # CLIFF, prerenal state vs CRS1 SCr 3.6 on adm, improved to 2.9 Hx of urinary incontinence, on oxybutynin at home BNP sig elevated [place] po fluid intake # HypoK Improved Cont jerad as below # CKD4 presumed to be 2/2 Htn nephrosclerosis Baseline SCr 1.9 (GFR 25-26 mL/min) as of March 2023 Monitor renal panel # Severe pulmonary hypertension Has 1+ BLE edema TTE in March 2023 showed normal LVEF 60-65% and mild grade 1 diastolic dysfunction but with severe pulmonary hypertension with RVSP greater than 60 mmHg Per other services Cont jerad at 25 mg po bid Lasix at 20 mg po bid # Essential Htn Cont current med regimen # Anemia Monitor CBC # Vitamin D deficiency Resume vit D suppl # R chest pain s/p mechanical fall Per other services # Hyperuricemia Hold allopurinol
--- NOTE | 2023-04-16 11:53 | EKG ---
Test Date: 2023-04-13 Test Time: 08:56:55 Pattern Developer: REBECA MEASUREMENT RESULTS: Intervals: Rate: 65 GA: 220 QRSD: 126 QT: 472 QTc: 490 [place]: P: 64 GA: 220 QRS: -40 T: 46 INTERPRETIVE STATEMENTS: Sinus rhythm with 1st degree AV block with premature atrial complexes Left axis deviation Left ventricular hypertrophy with QRS widening Abnormal ECG Compared to ECG 03/08/2023 16:13:02 Atrial premature complex(es) now present Left-axis deviation now present Left ventricular hypertrophy now present Sinus bradycardia no longer present Incomplete right bundle-branch block no longer present Left anterior fascicular block no longer present Electronically Signed On 04-16-23 11:47:23 CDT by Andre Arriaga
== END 2023-04-15 16:08 | disposition home or self-care (01) ==
LOC: ER 08:43 → ERHOLD 10:37 → 4TH 12:09
PROVIDERS: ADMIT Family Medicine; ATTEND Family Medicine
DX: S29.9XXA Unspecified injury of thorax, initial encounter (principal); W01.0XXA Fall on same level from slipping, tripping and stumbling without subsequent striking against object, initial encounter; Y93.89 Activity, other specified; Y92.524 Gas station as the place of occurrence of the external cause; N17.9 Acute kidney failure, unspecified; N18.4 Chronic kidney disease, stage 4 (severe); I27.20 Pulmonary hypertension, unspecified; I10 Essential (primary) hypertension; E87.6 Hypokalemia; D63.1 Anemia in chronic kidney disease; E55.9 Vitamin D deficiency, unspecified; E79.0 Hyperuricemia without signs of inflammatory arthritis and tophaceous disease
CPT/HCPCS: 85025 ×3; 80048 ×3; 36415 ×2; 82550; 84132; 84300; 82570; 84484; 83540; 83970; 82306; 83880; 83935; 84156; 84466; 71045; 71100; 76770; 97116; 97161; 97530; 99285; J7030; 93005

== ENCOUNTER 2023-05-04 09:16 | Emergency (ER) | payer MEDICARE ==
[2023-05-04 09:43] LABS: Absolute Lymphocytes (CBC) 1.2 K/uL (0.7-4.9); Hematocrit 31.5 % (36.0-45.0); MCV 87.4 fL (80-100); MPV 7.4 fL (7.6-11.3)
--- NOTE | 2023-05-04 09:59 | RAD REPORT ---
EXAM DESCRIPTION: CT - Thorax Wo Con CLINICAL HISTORY: Chest pain PAIN COMPARISON: Thorax Wo Con dated 12/30/2021; Ribs Left dated 05/03/2023 FINDINGS: The lungs are clear. Trace left pleural fluid. No right pleural fluid. No pneumothorax. No axillary, mediastinal or hilar adenopathy. Moderate multilevel thoracic degenerative changes. No gross upper abdominal finding. All CT scans are performed using dose optimization technique as appropriate and may include automated exposure control or mA/KV adjustment according to patient size. IMPRESSION: Trace left pleural effusion is seen.The included portions of the ribs do not show eviden ce of a displaced rib fracture or aggressive rib lesion.
[2023-05-04 10:03] LABS: Potassium 5.4 mEq/L (3.5-5.1); Troponin High Sensitivity 9.7 pg/mL (<58.9)
--- OUTSIDE RECORDS SUMMARY | 2023-05-04 10:07 | XMS REPORT | Continuity of Care Document ---
:1940 Author Organization [facility] t Address [address] [place] [address] Care Team Providers Name Role Phone [place] Primary Care Physician Anurag Sanderson Attending Clinician Unavailable [email or web address]_S Attending Clinician Unavailable Glenys Claros Attending Clinician Deavers_C Attending Clinician Unavailable Alisa Sanders Attending Clinician EMMANUEL VELEZ Attending Clinician Unavailable Emmanuel Velez Attending Clinician PEREZ MORENO Attending Clinician Unavailable Perez Moreno Attending Clinician Doctor Unassigned, [place] Attending Clinician Unavailable Allegra Laura Attending Clinician CARLY SINCLAIR Attending Clinician Unavailable Carly Sinclair DO Attending Clinician Canales_M Attending Clinician Unavailable Jeffrey Garcia Attending Clinician Olivia-Mbayo_A_AH Attending Clinician Unavailable Caitlyn Jerez Attending Clinician [phone] Vincent Soni Attending Clinician Sariah Becerra Attending Clinician Maria Luisa Rust NP Attending Clinician Timi Aguirre MD Attending Clinician TIMI AGUIRRE Attending Clinician Unavailable Physician, No Primary or Family Admitting Clinician Unavaila ble [email or web address]_Kadiyala_S Admitting Clinician Unavailable Deavers_C Admitting Clinician Unavailable AYO CASTAÑEDA Admitting Clinician Unavailable Ayo Castañeda Admitting Clinician PEREZ MORENO Admitting Clinician Unavailable Perez Moreno Admitting Clinician CARLY SINCLAIR Admitting Clinician Unavailable Solitario_Keesha Admitting Clinician Unavailable Olivia-Mbayo_A_AH Admitting Clinician Unavailable Vincent Soni Admitting Clinician TIMI AGUIRRE Admitting Clinician Unavailable Payers Payer Name Policy Type Policy Number Effective Date Expiration Date Carla peterson [facility] [id number] 2020 00:00:00 [facility] PL[facility] [id number] 2019 CLASSIC/VALUE 00:00:00 [id number] (MEDICARE 00:00:00 REPLACEMENT HMO) [employer] [place] - [id number] 2019 AG (MEDICARE 00:00:00 REPLACEMENT/ADVANTA GE - HMO) Problems Condition Condition Condition Status Onset Resolution Last Treating Co mments Source Name Details Category Date Date Treatment Clinician Date SUBARACHMO SUBARACHM Diagnosis Active 2022-12-11 Memoria ID OID - 21:45:00 l HEMORRHAGE HEMORRHAGE 23:05: He rmann Active 00 11/25/2022 [facility] Acute Acute Diagnosis Active 2022-11-25 Me moria 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-22 03:23:53 l failure failure 00:00: [place] syndrome syndrome 00 (disorder) (disorder) Active 11/22/2022 Diagnosis 11/25/2022 [facility] SUBARACHNO Diagnosis Active 2022-11-23 Memoria ID SUBARACHNO 11-20 15:38:00 l HEMORRHAGE ID 00:00: Ajay n HEMORRHAGE 00 Active 11/20/2022 [facility] FALL FROM FALL FROM Diagnosis Active 2019-102020-09-16 Memoria STANDING STANDING 2-05 21:55:00 l Active 00:00: Raul 09/04/2020 00 [facility] S/P FALL, S/P FALL, Diagnosis Active 2019-102020-09-05 Memoria FRACTURED FRACTURED 2-05 00:45:00 l RIGHT RIGHT 00:00: Raul WRIST, WRIST, 00 HEAD HE HEAD HE Active 09/04/2020 [facility] Traumatic Traumatic Problem 2022-12-04 Memoria subdural subdural 08:08:28 l hemorrhage hemorrhage He rmann with loss with loss of of consciousn consciousn ess status ess status unknown, unknown, initial initial encounter encounter 12/04/2022 [facility] Intracrani Intracran Diagnosis 2022-12-02 Memoria al injury ial injury 04:21:54 l with loss with loss Herm bernie of of consciousn consciousn ess ess (disorder) (disorder) Diagnosis 12/02/2022 [facility] 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 Francisco zhang stenosis stenosis 08:08:28 l in in [place] cervical cervical region region (disorder) (disorder) Active Problem 12/04/2022 [facility] TRAUM TRAUM Diagnosis Active 2022-12-11 [facility] oria SUBDR HEM SUBDR HEM 21:45:00 l WITH LOC WITH LOC Ajay n STATUS STATUS UNKNOWN, UNKNOWN, Active [facility] Hypertensi Hypertens Problem Active 2022-12-04 Memoria ve lyle 08:08:28 l disorder, disorder, Herm bernie systemic systemic arterial arterial (disorder) (disorder) Active Problem 12/04/2022 [facility] Hyperlipid Hyperlipi Problem Active 2022-12-04 Memoria emia demia 08:08:28 l (disorder) (disorder) He ann Active Problem 12/04/2022 [facility] Hypothyroi Hypothyro Problem Active 2022-12-04 Memoria dism idism 08:08:28 l (disorder) (disorder) He rmann Active Problem 12/04/2022 [facility] Memory Memory Problem Active 2022-12-04 Jose Francisco zhang impairment impairment 08:08:28 l (finding) (finding) Herm bernie Active Problem 12/04/2022 [facility] Morbid Morbid Problem Active 2022-12-04 Jose Francisco zhang obesity obesity 08:08:28 l (disorder) (disorder) He rmann Active Problem 12/04/2022 [facility] Recurrent Recurrent Problem Active 2022-12-04 Memoria falls falls 08:08:28 l (finding) (finding) Herm bernie Active Problem 12/04/2022 [facility] Transient Transient Problem Active 2022-12-04 Memoria ischemic ischemic 08:08:28 l attack attack [place] (disorder) (disorder) Active Problem 12/04/2022 [facility] Tremor Tremor Problem Active 2022-12-04 Jose Francisco zhang (finding) (finding) 08:08:28 l Active Raul Problem 12/04/2022 [facility] 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-04 Me moria kidney kidney 08:08:28 l disease disease [place] (disorder) (disorder) Active [facility] 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-04 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:08:28 l e lung e lung [place] disease disease (disorder) (disorder) Active Problem 12/04/2022 [facility] 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 08:08:28 l (disorder) (disorder) He rmann Active Problem 12/04/2022 [facility] Essential Essential Problem Active 2022-12-04 Memoria tremor tremor 08:08:28 l (disorder) (disorder) He rmann Active Problem 12/04/2022 [facility] UNSPECIFIE UNSPECIFI Diagnosis Active 2020-09-16 Memoria D FALL, ED FALL, 21:55:00 l INITIAL INITIAL [place] ENCOUNTER ENCOUNTER Active [facility] [id number] 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 - [facility] 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 [facility] [id number] Primary Problem Comm on osteoarthr Spirit itis, - [facility] right [facility] foot [facility] [id number] Primary Problem 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 [facility] arpal [facility] right hand [id number] Acute pain Problem Com mon of right Spirit shoulder - [facility] [id number] 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 [facility] [id number] Arthritis Problem Com mon of hand Spirit - [facility] History of Past Illness Condition Condition Condition Status Onset Resolution Last Treating Co mments Source Name Details Category Date Date Treatment Clinician Date Spinal Spinal Problem 2022-2022-12-04 2022-12-04 Memoria stenosis, stenosis, 3- 08:08:28 08:08:28 l cervical cervical 16:54: Ajay n region region 00 11/29/2022 12/04/2022 [facility] Repeated Repeated Problem 2022-12-04 2022-12-04 Memoria falls falls 3- 08:08:28 08:08:28 l 11/29/2022 16:45: Ajay gorman 12/04/2022 00 [facility] Chronic Chronic Problem 2022-11-27 2022-11-27 Memoria kidney kidney 2- 10:42:07 10:42:07 l disease, disease, 19:17: Ajay gorman unspecifie unspecifie 00 d d 11/22/2022 11/27/2022 [facility] Allergies, Adverse Reactions, Alerts Allergy Allergy Status Severity Reaction(s) Onset Inactive Treating Comm ents Source Name Type Date Date Clinician ADHESIVE DRUG Active Med Rash Univers TAPE-DEBBY 8-30 ity of ICONES 00:00: [address] Branch MOXIFLOX DRUG Active Med Rash Univers ACIN HCL INGREDI 8-30 ity of 00:00: [place] [address] Medical Branch Adhesive Propensi Active Rash Univer s Tape-Debby ty to 8-30 ity of icones adverse 00:00: [place] reaction 00 Medical s to Branch drug Moxiflox Propensi Active Rash Univer s acin Hcl ty to 8-30 ity of adverse 00:00: [place] reaction 00 Medical s to Branch drug moxiflox DA Active U RASH [facility] acin HCl 2-15 West 00:00: [address] BANDAIDS DA Active ME RASH [facility] ADHESIVE 2-15 [place] 00:00: [address] Avelox Avelox Active ME^Mild Memoria l [place] Avelox Allergy Active Rash Devoted to Medical substanc Group e Social History Social Habit Start Date Stop Date Quantity Comments Source ASSERTION [facility] Alcohol Comment Occasional [facility] History of Common Spirit - Tobacco Use [facility] Sex Assigned At Common Sp cristian - [facility] Alcohol intake 2022-08-10 2022-08-10 0 /d University of 00:00:00 00:00:00 [facility] Exposure to 2022-07-26 2022-08-05 Not sure [facility] SARS-CoV-2 00:00:00 12:21:[address] [facility] (event) [place] Social History 2020-09-05 2020-09-05 [facility] H ermann 14:31:45 14:31:45 Tobacco use and 2020-06-28 2020-06-28 Never used Universit y of exposure 00:00:00 00:00:00 [facility] Smoking Status Start Date Stop Date Source Former Smoker 2022-11-18 00:00:00 2022-11-18 00:00:00 Common S pirit - [facility] Ce nter Never smoked tobacco [facility] Medications Ordered Filled Start Stop Current Ordering Indication Dosage Frequency Signature Comments Components Source Medication Medication Date Date Medication? Clinician (SIG) Name Name valproic Yes 500 mg = 2 Mem oria acid 250 mg 3-01 cap, PO, l oral 16:43: Q8H, # 30 [place] capsule(Dep 00 cap, 0 ekene) Refill(s), Pharmacy: [facility] #[id number], 149.86, cm, 11/27/22 8:13:00 JACKET PREPARER, Height, 86.364, kg, 11/27/22 8:13:00 JACKET PREPARER, Weight Tylenol 0 No 1 tab, PO, Jose Francisco zhang with 3-01 Q6H, PRN l Codeine #3 16:43: Pain Score H ermann oral tablet 00 7-10, X 3 day, # 12 tab, 0 Refill(s), Pharmacy: [facility] #[id number], 149.86, cm, 11/27/22 8:13:00 JACKET PREPARER, Height, 86.364, kg, 11/27/22 8:13:00 JACKET PREPARER, Weight valproic Yes 500 mg = 2 Mem oria acid 250 mg 3-01 cap, PO, l oral 16:43: Q8H, # 30 [place] capsule(Dep 00 cap, 0 ekene) Refill(s), Pharmacy: [facility] #[id number], 149.86, cm, 11/27/22 8:13:00 JACKET PREPARER, Height, 86.364, kg, 11/27/22 8:13:00 JACKET PREPARER, Weight Tylenol 2022-0 No 1 tab, PO, Jose Francisco zhang with 3-01 Q6H, PRN l Codeine #3 16:43: Pain Score H ermann oral tablet 00 7-10, X 3 day, # 12 tab, 0 Refill(s), Pharmacy: [facility] cy #[id number], 149.86, cm, 11/27/22 8:13:00 JACKET PREPARER, Height, 86.364, kg, 11/27/22 8:13:00 JACKET PREPARER, Weight valproic 2022-0 Yes 500 mg = 2 Mem oria acid 250 mg 3-01 cap, PO, l oral 16:43: Q8H, # 30 [place] capsule(Dep 00 cap, 0 ekene) Refill(s), Pharmacy: [facility] #[id number], 149.86, cm, 11/27/22 8:13:00 JACKET PREPARER, Height, 86.364, kg, 11/27/22 8:13:00 JACKET PREPARER, Weight Tylenol 2022-0 No 1 tab, PO, Jose Francisco zhang with 3-01 Q6H, PRN l Codeine #3 16:43: Pain Score H ermann oral tablet 00 7-10, X 3 day, # 12 tab, 0 Refill(s), Pharmacy: [facility] #[id number], 149.86, cm, 11/27/22 8:13:00 JACKET PREPARER, Height, 86.364, kg, 11/27/22 8:13:00 JACKET PREPARER, Weight valproic 2022-0 Yes 500 mg = 2 Mem oria acid 250 mg 3-01 cap, PO, l oral 16:43: Q8H, # 30 Raul capsule(Dep 00 cap, 0 ekene) Refill(s), Pharmacy: [facility] kevin #[id number], 149.86, cm, 11/27/22 8:13:00 JACKET PREPARER, Height, 86.364, kg, 11/27/22 8:13:00 JACKET PREPARER, Weight Tylenol 2022-0 No 1 tab, PO, Jose Francisco zhang with 3-01 Q6H, PRN l Codeine #3 16:43: Pain Score H ermann oral tablet 00 7-10, X 3 day, # 12 tab, 0 Refill(s), Pharmacy: [facility] #[id number], 149.86, cm, 11/27/22 8:13:00 JACKET PREPARER, Height, 86.364, kg, 11/27/22 8:13:00 JACKET PREPARER, Weight valproic 2023-0 Yes 500 mg = 2 Mem oria acid 250 mg 3-01 cap, PO, l oral 16:43: Q8H, # 30 [place] capsule(Dep 00 cap, 0 ekene) Refill(s), Pharmacy: [facility] #[id number], 149.86, cm, 11/27/22 8:13:00 JACKET PREPARER, Height, 86.364, kg, 11/27/22 8:13:00 JACKET PREPARER, Weight Tylenol 2022-0 No 1 tab, PO, Jose Francisco zhang with 3-01 Q6H, PRN l Codeine #3 16:43: Pain Score H ermann oral tablet 00 7-10, X 3 day, # 12 tab, 0 Refill(s), Pharmacy: [facility] #[id number], 149.86, cm, 11/27/22 8:13:00 JACKET PREPARER, Height, 86.364, kg, 11/27/22 8:13:00 JACKET PREPARER, Weight valproic 0 Yes 500 mg = 2 Mem oria acid 250 mg 3-01 cap, PO, l oral 16:43: Q8H, # 30 Raul capsule(Dep 00 cap, 0 ekene) Refill(s), Pharmacy: [facility] #[id number], 149.86, cm, 11/27/22 8:13:00 JACKET PREPARER, Height, 86.364, kg, 11/27/22 8:13:00 JACKET PREPARER, Weight Tylenol 2022-0 No 1 tab, PO, Jose Francisco zhang with 3-01 Q6H, PRN l Codeine #3 16:43: Pain Score H ermann oral tablet 00 7-10, X 3 day, # 12 tab, 0 Refill(s), Pharmacy: [facility] #[id number], 149.86, cm, 11/27/22 8:13:00 JACKET PREPARER, Height, 86.364, kg, 11/27/22 8:13:00 JACKET PREPARER, Weight valproic 2022-0 Yes 500 mg = 2 Mem oria acid 250 mg 3-01 cap, PO, l oral 16:43: Q8H, # 30 Raul capsule(Dep 00 cap, 0 ekene) Refill(s), Pharmacy: [facility] #[id number], 149.86, cm, 11/27/22 8:13:00 JACKET PREPARER, Height, 86.364, kg, 11/27/22 8:13:00 JACKET PREPARER, Weight Tylenol 2022-0 No 1 tab, PO, Jose Francisco zhang with 3-01 Q6H, PRN l Codeine #3 16:43: Pain Score H ermann oral tablet 00 7-10, X 3 day, # 12 tab, 0 Refill(s), Pharmacy: [facility] #[id number], 149.86, cm, 11/27/22 8:13:00 JACKET PREPARER, Height, 86.364, kg, 11/27/22 8:13:00 JACKET PREPARER, Weight rOPINIRole 3-0 Yes 2 mg = 1 Mem oria 2 mg oral 3-01 tab, PO, l tablet 16:42: Q12H, 0 [place] 00 Refill(s) acetaminoph 2023-0 Yes 100.4 F, M emoria en 325 mg 3-01 0 l oral 16:42: Refill(s) Raul tablet. 00 rOPINIRole 2023-0 Yes 2 mg = 1 Mem oria 2 mg oral 3-01 tab, PO, l tablet 16:42: Q12H, 0 [place] 00 Refill(s) acetaminoph 2023-0 Yes 100.4 F, M emoria en 325 mg 3-01 0 l oral 16:42: Refill(s) Raul tablet. 00 rOPINIRole 2023-0 Yes 2 mg = 1 Mem oria 2 mg oral 3-01 tab, PO, l tablet 16:42: Q12H, 0 Raul 00 Refill(s) acetaminoph 2023-0 Yes 100.4 F, M emoria en 325 mg 3-01 0 l oral 16:42: Refill(s) [place] tablet. 00 rOPINIRole 2023-0 Yes 2 mg = 1 Mem oria 2 mg oral 3-01 tab, PO, l tablet 16:42: Q12H, 0 Raul 00 Refill(s) acetaminoph 2023-0 Yes 100.4 F, M emoria en 325 mg 3-01 0 l oral 16:42: Refill(s) [place] tablet. 00 rOPINIRole 2023-0 Yes 2 mg [...] mg 3-01 0 l oral 16:42: Refill(s) [place] tablet. 00 donepezil 2023-0 No 10 mg, 2 Jose Francisco zhang 2-28 tab, l 15:00: Route: PO, [place] 00 Drug form: TAB, Daily, Dosing Weight 86.364, kg, 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/28/22 9:00:00 JACKET PREPARER, Duration: 30 day, Stop date: 12/27/22 9:00:00 CDT, 0 ferrous 3-0 No Notes: Memoria sulfate 2-28 Give with l 15:00: food. "Do Not Crush" NIFEdipine 3-0 No 30 mg, 1 Mem oria 30 mg oral 2-28 tab, l tablet, 15:00: Route: PO, Herm bernie extended Drug form: release ERTAB, Daily, Dosing Weight 86.364, kg, 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/28/22 9:00:00 JACKET PREPARER, Duration: 30 day, Stop date: 12/27/22 9:00:00 CDT, 0 donepezil 2023-0 No 10 mg, 2 Jose Francisco zhang 2-28 tab, l 15:00: Route: PO, Raul Drug form: TAB, Daily, Dosing Weight 86.364, kg, 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/28/22 9:00:00 JACKET PREPARER, Duration: 30 day, Stop date: 12/27/22 9:00:00 CDT, 0 ferrous 2023-0 No Notes: Memoria sulfate 2-28 Give with l 15:00: food. "Do Not Crush" NIFEdipine 2023-0 No 30 mg, 1 Mem oria 30 mg oral 2-28 tab, l tablet, 15:00: Route: PO, Herm bernie extended 00 Drug form: release ERTAB, Daily, Dosing Weight 86.364, kg, 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/28/22 9:00:00 JACKET PREPARER, Duration: 30 day, Stop date: 12/27/22 9:00:00 CDT, 0 donepezil 2023-0 No 10 mg, 2 Jose Francisco zhang 2-28 tab, l 15:00: Route: PO, Raul Drug form: TAB, Daily, Dosing Weight 86.364, kg, 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/28/22 9:00:00 JACKET PREPARER, Duration: 30 day, Stop date: 12/27/22 9:00:00 CDT, 0 ferrous 2023-0 No Notes: Memoria sulfate 2-28 Give with l 15:00: food. "Do Not Crush" NIFEdipine 2023-0 No 30 mg, 1 Mem oria 30 mg oral 2-28 tab, l tablet, 15:00: Route: PO, Herm bernie extended 00 Drug form: release ERTAB, Daily, Dosing Weight 86.364, kg, 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/28/22 9:00:00 JACKET PREPARER, Duration: 30 day, Stop date: 12/27/22 9:00:00 CDT, 0 donepezil 2023-0 No 10 mg, 2 Jose Francisco zhang 2-28 tab, l 15:00: Route: PO, Raul 00 Drug form: TAB, Daily, Dosing Weight 86.364, kg, 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/28/22 9:00:00 JACKET PREPARER, Duration: 30 day, Stop date: 12/27/22 9:00:00 CDT, 0 ferrous 2023-0 No Notes: Memoria sulfate 2-28 Give with l 15:00: food. "Do Not Crush" NIFEdipine 2023-0 No 30 mg, 1 Mem oria 30 mg oral 2-28 tab, l tablet, 15:00: Route: PO, Herm bernie extended 00 Drug form: release ERTAB, Daily, Dosing Weight 86.364, kg, 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/28/22 9:00:00 JACKET PREPARER, Duration: 30 day, Stop date: 12/27/22 9:00:00 CDT, 0 donepezil 2023-0 No 10 mg, 2 Jose Francisco zhang 2-28 tab, l 15:00: Route: PO, Raul 00 Drug form: TAB, Daily, Dosing Weight 86.364, kg, 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/28/22 9:00:00 JACKET PREPARER, Duration: 30 day, Stop date: 12/27/22 9:00:00 CDT, 0 ferrous 2023-0 No Notes: Memoria sulfate 2-28 Give with l 15:00: food. "Do Not Crush" NIFEdipine 2023-0 No 30 mg, 1 Mem oria 30 mg oral 2-28 tab, l tablet, 15:00: Route: PO, Herm bernie extended Drug form: release ERTAB, Daily, Dosing Weight 86.364, kg, 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/28/22 9:00:00 JACKET PREPARER, Duration: 30 day, Stop date: 12/27/22 9:00:00 CDT, 0 donepezil 2023-0 No 10 mg, 2 Jose Francisco zhang 2-28 tab, l 15:00: Route: PO, Raul 00 Drug form: TAB, Daily, Dosing Weight 86.364, kg, 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/28/22 9:00:00 JACKET PREPARER, Duration: 30 day, Stop date: 12/27/22 9:00:00 CDT, 0 ferrous 2023-0 No Notes: Memoria sulfate 2-28 Give with l 15:00: food. "Do Not Crush" NIFEdipine 2023-0 No 30 mg, 1 Mem oria 30 mg oral 2-28 tab, l tablet, 15:00: Route: PO, Herm bernie extended Drug form: release ERTAB, Daily, Dosing Weight 86.364, kg, 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/28/22 9:00:00 JACKET PREPARER, Duration: 30 day, Stop date: 12/27/22 9:00:00 CDT, 0 donepezil 2023-0 No 10 mg, 2 Jose Francisco zhang 2-28 tab, l 15:00: Route: PO, [place] Drug form: TAB, Daily, Dosing Weight 86.364, kg, 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/28/22 9:00:00 JACKET PREPARER, Duration: 30 day, Stop date: 12/27/22 9:00:00 CDT, 0 ferrous 2022-0 No Notes: Memoria sulfate 2-28 Give with l 15:00: food. "Do Raul 00 Not Crush" NIFEdipine 2022-0 No 30 mg, 1 Mem oria 30 mg oral 2-28 tab, l tablet, 15:00: Route: PO, Herm bernie extended 00 Drug form: release ERTAB, Daily, Dosing Weight 86.364, kg, 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/28/22 9:00:00 JACKET PREPARER, Duration: 30 day, Stop date: 12/27/22 9:00:00 CDT, 0 heparin 2022-0 No Notes: Memoria 5000 2-28 porcine l units/mL 14:00: heparin Ajay n injectable 00 solution heparin 3-0 No Notes: Memoria 5000 2-28 porcine l units/mL 14:00: heparin Ajay n injectable 00 solution heparin 3-0 No Notes: Memoria 5000 2-28 porcine l units/mL 14:00: heparin Ajay n injectable 00 solution heparin 3-0 No Notes: Memoria 5000 2-28 porcine l units/mL 14:00: heparin Ajay n injectable 00 solution heparin 3-0 No Notes: Memoria 5000 2-28 porcine l units/mL 14:00: heparin Ajay n injectable 00 solution heparin 2023-0 No Notes: Memoria 5000 2-28 porcine l units/mL 14:00: heparin Ajay n injectable 00 solution heparin 2023-0 No Notes: Memoria 5000 2-28 porcine l units/mL 14:00: heparin Ajay n injectable 00 solution levothyroxi 3-0 No 112 Memori a ne 2-28 microgram, l 12:00: 1 tab, [place] 00 Route: PO, Drug form: TAB, Q6AM, Dosing Weight 86.364, kg, 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/28/22 6:00:00 JACKET PREPARER, Duration: 30 day, Stop date: 12/27/22 6:00:00 CDT, 0 levothyroxi 3-0 No 112 Memori a ne 2-28 microgram, l 12:00: 1 tab, [place] 00 Route: PO, Drug form: TAB, Q6AM, Dosing Weight 86.364, kg, 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/28/22 6:00:00 JACKET PREPARER, Duration: 30 day, Stop date: 12/27/22 6:00:00 CDT, 0 levothyroxi 2023-0 No 112 Memori a ne 2-28 microgram, l 12:00: 1 tab, Route: PO, Drug form: TAB, Q6AM, Dosing Weight 86.364, kg, 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/28/22 6:00:00 JACKET PREPARER, Duration: 30 day, Stop date: 12/27/22 6:00:00 CDT, 0 levothyroxi 3-0 No 112 Memori a ne 2-28 microgram, l 12:00: 1 tab, Route: PO, Drug form: TAB, Q6AM, Dosing Weight 86.364, kg, 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/28/22 6:00:00 JACKET PREPARER, Duration: 30 day, Stop date: 12/27/22 6:00:00 CDT, 0 levothyroxi 2023-0 No 112 Memori a ne 2-28 microgram, l 12:00: 1 tab, Route: PO, Drug form: TAB, Q6AM, Dosing Weight 86.364, kg, 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/28/22 6:00:00 JACKET PREPARER, Duration: 30 day, Stop date: 12/27/22 6:00:00 CDT, 0 levothyroxi 3-0 No 112 Memori a ne 2-28 microgram, l 12:00: 1 tab, Route: PO, Drug form: TAB, Q6AM, Dosing Weight 86.364, kg, 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/28/22 6:00:00 JACKET PREPARER, Duration: 30 day, Stop date: 12/27/22 6:00:00 CDT, 0 levothyroxi 3-0 No 112 Memori a ne 2-28 microgram, l 12:00: 1 tab, Route: PO, Drug form: TAB, Q6AM, Dosing Weight 86.364, kg, Start date: 11/28/22 6:00:00 JACKET PREPARER, Duration: 30 day, Stop date: 12/27/22 6:00:00 CDT, 0 Wellbutrin 2023-0 No 150 mg, 1 Me moria SR 2-28 tab, l 03:00: Route: PO, Drug form: ERTAB, Q12H, Dosing Weight 86.364, kg, Start date: 11/27/22 21:00:00 JACKET PREPARER, Duration: 30 day, Stop date: 12/27/22 9:00:00 [...] Weight 86.364, kg, Start date: 11/27/22 21:00:00 JACKET PREPARER, Duration: 30 day, Stop date: 12/26/22 21:00:00 CDT, 0 primidone No Notes: Memori a 2-28 (Same as: l 03:00: Mysoline) rOPINIRole No Notes: Memor ia 2-28 TIME l 03:00: CRITICAL MEDICATION (Same as: Requip) Wellbutrin No 150 mg, 1 Me moria SR 2-28 tab, l 03:00: Route: PO, Drug form: ERTAB, Q12H, Dosing Weight 86.364, kg, Start date: 11/27/22 21:00:00 JACKET PREPARER, Duration: 30 day, Stop date: 12/27/22 9:00:00 [...] Weight 86.364, kg, Start date: 11/27/22 21:00:00 JACKET PREPARER, Duration: 30 day, Stop date: 12/26/22 21:00:00 CDT, 0 primidone 2022-0 No Notes: Memori a 2-28 (Same as: l 03:00: Mysoline) rOPINIRole No Notes: Memor ia 2-28 TIME l 03:00: CRITICAL MEDICATION (Same as: Requip) Wellbutrin No 150 mg, 1 Me moria SR 2-28 tab, l 03:00: Route: PO, Drug form: ERTAB, Q12H, Dosing Weight 86.364, kg, Start date: 11/27/22 21:00:00 JACKET PREPARER, Duration: 30 day, Stop date: 12/27/22 9:00:00 [...] Weight 86.364, kg, Start date: 11/27/22 21:00:00 JACKET PREPARER, Duration: 30 day, Stop date: 12/26/22 21:00:00 CDT, 0 primidone 2022-0 No Notes: Memori a 2-28 (Same as: l 03:00: Mysoline) rOPINIRole 0 No Notes: Memor ia 2-28 TIME l 03:00: CRITICAL MEDICATION (Same as: Requip) Wellbutrin No 150 mg, 1 Me moria SR 2-28 tab, l 03:00: Route: PO, Drug form: ERTAB, Q12H, Dosing Weight 86.364, kg, Start date: 11/27/22 21:00:00 JACKET PREPARER, Duration: 30 day, Stop date: 12/27/22 9:00:00 [...] Weight 86.364, kg, Start date: 11/27/22 21:00:00 JACKET PREPARER, Duration: 30 day, Stop date: 12/26/22 21:00:00 CDT, 0 primidone No Notes: Memori a 2-28 (Same as: l 03:00: Mysoline) rOPINIRole No Notes: Memor ia 2-28 TIME l 03:00: CRITICAL MEDICATION (Same as: Requip) Wellbutrin No 150 mg, 1 Me moria SR 2-28 tab, l 03:00: Route: PO, Drug form: ERTAB, Q12H, Dosing Weight 86.364, kg, Start date: 11/27/22 21:00:00 JACKET PREPARER, Duration: 30 day, Stop date: 12/27/22 9:00:00 [...] Weight 86.364, kg, Start date: 11/27/22 21:00:00 JACKET PREPARER, Duration: 30 day, Stop date: 12/26/22 21:00:00 CDT, 0 primidone 0 No Notes: Memori a 2-28 (Same as: l 03:00: Mysoline) rOPINIRole No Notes: Memor ia 2-28 TIME l 03:00: CRITICAL MEDICATION (Same as: Requip) Wellbutrin No 150 mg, 1 Me moria SR 2-28 tab, l 03:00: Route: PO, Drug form: ERTAB, Q12H, Dosing Weight 86.364, kg, Start date: 11/27/22 21:00:00 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 PREPARER, Duration: 30 day, Stop date: 12/27/22 9:00:00 [...] Weight 86.364, kg, Start date: 11/27/22 21:00:00 JACKET PREPARER, Duration: 30 day, Stop date: 12/26/22 21:00:00 CDT, 0 primidone 2022-0 No Notes: Memori a 2-28 (Same as: l 03:00: Mysoline) rOPINIRole No Notes: Memor ia 2-28 TIME l 03:00: CRITICAL MEDICATION (Same as: Requip) Wellbutrin 0 No 150 mg, 1 Me moria SR 2-28 tab, l 03:00: Route: PO, Drug form: ERTAB, Q12H, Dosing Weight 86.364, kg, Start date: 11/27/22 21:00:00 JACKET PREPARER, Duration: 30 day, Stop date: 12/27/22 9:00:00 [...] Weight 86.364, kg, Start date: 11/27/22 21:00:00 JACKET PREPARER, Duration: 30 day, Stop date: 12/26/22 21:00:00 CDT, 0 primidone 2022-0 No Notes: Memori a 2-28 (Same as: l 03:00: Mysoline) rOPINIRole 2022-0 No Notes: Memor ia 2-28 TIME l 03:00: CRITICAL MEDICATION (Same as: Requip) rOPINIRole 2022-0 No 4 mg, 1 Jose Francisco zhang 2-27 tab, l 23:00: Route: PO, Drug form: TAB, BID, Dosing Weight 86.364, kg, Start date: 11/27/22 17:00:00 JACKET PREPARER, Duration: 30 day, Stop date: 12/27/22 9:00:00 CDT pantoprazol 2022-0 No 40 mg, 1 Me moria e 2-27 tab, l 23:00: Route: PO, Drug form: ECTAB, BID, Dosing Weight 86.364, kg, Start date: 11/27/22 17:00:00 JACKET PREPARER, Duration: 30 day, Stop date: 12/27/22 9:00:00 CDT rOPINIRole 2023-0 No 4 mg, 1 Jose Francisco zhang 2-27 tab, l 23:00: Route: PO, [place] 00 Drug form: TAB, BID, Dosing Weight 86.364, kg, Start date: 11/27/22 17:00:00 JACKET PREPARER, Duration: 30 day, Stop date: 12/27/22 9:00:00 CDT pantoprazol 2023-0 No 40 mg, 1 Me moria e 2-27 tab, l 23:00: Route: PO, [place] 00 Drug form: ECTAB, BID, Dosing Weight 86.364, kg, Start date: 11/27/22 17:00:00 JACKET PREPARER, Duration: 30 day, Stop date: 12/27/22 9:00:00 CDT rOPINIRole 2023-0 No 4 mg, 1 Jose Francisco zhang 2-27 tab, l 23:00: Route: PO, Raul 00 Drug form: TAB, BID, Dosing Weight 86.364, kg, Start date: 11/27/22 17:00:00 JACKET PREPARER, Duration: 30 day, Stop date: 12/27/22 9:00:00 CDT pantoprazol 2023-0 No 40 mg, 1 Me moria e 2-27 tab, l 23:00: Route: PO, Raul 00 Drug form: ECTAB, BID, Dosing Weight 86.364, kg, Start date: 11/27/22 17:00:00 JACKET PREPARER, Duration: 30 day, Stop date: 12/27/22 9:00:00 CDT rOPINIRole 2023-0 No 4 mg, 1 Jose Francisco zhang 2-27 tab, l 23:00: Route: PO, Raul 00 Drug form: TAB, BID, Dosing Weight 86.364, kg, Start date: 11/27/22 17:00:00 JACKET PREPARER, Duration: 30 day, Stop date: 12/27/22 9:00:00 CDT pantoprazol 2023-0 No 40 mg, 1 Me moria e 2-27 tab, l 23:00: Route: PO, [place] 00 Drug form: ECTAB, BID, Dosing Weight 86.364, kg, Start date: 11/27/22 17:00:00 JACKET PREPARER, Duration: 30 day, Stop date: 12/27/22 9:00:00 CDT rOPINIRole 2023-0 No 4 mg, 1 Jose Francisco zhang 2-27 tab, l 23:00: Route: PO, [place] 00 Drug form: TAB, BID, Dosing Weight 86.364, kg, Start date: 11/27/22 17:00:00 JACKET PREPARER, Duration: 30 day, Stop date: 12/27/22 9:00:00 CDT pantoprazol 2023-0 No 40 mg, 1 Me moria e 2-27 tab, l 23:00: Route: PO, [place] 00 Drug form: ECTAB, BID, Dosing Weight 86.364, kg, Start date: 11/27/22 17:00:00 JACKET PREPARER, Duration: 30 day, Stop date: 12/27/22 9:00:00 CDT rOPINIRole 2023-0 No 4 mg, 1 Jose Francisco zhang 2-27 tab, l 23:00: Route: PO, Drug form: TAB, BID, Dosing Weight 86.364, kg, Start date: 11/27/22 17:00:00 JACKET PREPARER, Duration: 30 day, Stop date: 12/27/22 9:00:00 CDT pantoprazol 2023-0 No 40 mg, 1 Me moria e 2-27 tab, l 23:00: Route: PO, Raul 00 Drug form: ECTAB, BID, Dosing Weight 86.364, kg, Start date: 11/27/22 17:00:00 JACKET PREPARER, Duration: 30 day, Stop date: 12/27/22 9:00:00 CDT rOPINIRole 2023-0 No 4 mg, 1 Jose Francisco zhang 2-27 tab, l 23:00: Route: PO, Drug form: TAB, BID, Dosing Weight 86.364, kg, Start date: 11/27/22 17:00:00 JACKET PREPARER, Duration: 30 day, Stop date: 12/27/22 9:00:00 CDT pantoprazol 2023-0 No 40 mg, 1 Me moria e 2-27 tab, l 23:00: Route: PO, [place] 00 Drug form: ECTAB, BID, Dosing Weight 86.364, kg, Start date: 11/27/22 17:00:00 JACKET PREPARER, Duration: 30 day, Stop date: 12/27/22 9:00:00 CDT valproic 2023-0 No 500 mg, 2 Jose Francisco zhang acid 250 mg 2-27 cap, l oral 22:00: Route: PO, [place] capsule(Dep 00 Drug form: ekene) CAP, Q8H, Dosing Weight 86.364, kg, Start date: 11/27/22 16:00:00 JACKET PREPARER, Duration: 7 day, Stop date: 12/04/22 8:00:00 JACKET PREPARER, 0 valproic 2023-0 No 500 mg, 2 Jose Francisco zhang acid 250 mg 2-27 cap, l oral 22:00: Route: PO, [place] capsule(Dep 00 Drug form: ekene) CAP, Q8H, Dosing Weight 86.364, kg, Start date: 11/27/22 16:00:00 JACKET PREPARER, Duration: 7 day, Stop date: 12/04/22 8:00:00 JACKET PREPARER, 0 valproic 2023-0 No 500 mg, 2 Jose Francisco zhang acid 250 mg 2-27 cap, l oral 22:00: Route: PO, Raul capsule(Dep 00 Drug form: ekene) CAP, Q8H, Dosing Weight 86.364, kg, Start date: 11/27/22 16:00:00 JACKET PREPARER, Duration: 7 day, Stop date: 12/04/22 8:00:00 JACKET PREPARER, 0 valproic 2023-0 No 500 mg, 2 Jose Francisco zhang acid 250 mg 2-27 cap, l oral 22:00: Route: PO, Raul capsule(Dep 00 Drug form: ekene) CAP, Q8H, Dosing Weight 86.364, kg, Start date: 11/27/22 16:00:00 JACKET PREPARER, Duration: 7 day, Stop date: 12/04/22 8:00:00 JACKET PREPARER, 0 valproic 2023-0 No 500 mg, 2 Jose Francisco zhang acid 250 mg 2-27 cap, l oral 22:00: Route: PO, Raul capsule(Dep 00 Drug form: ekene) CAP, Q8H, Dosing Weight 86.364, kg, Start date: 11/27/22 16:00:00 JACKET PREPARER, Duration: 7 day, Stop date: 12/04/22 8:00:00 JACKET PREPARER, 0 valproic 2023-0 No 500 mg, 2 Jose Francisco zhang acid 250 mg 2-27 cap, l oral 22:00: Route: PO, [place] capsule(Dep 00 Drug form: ekene) CAP, Q8H, Dosing Weight 86.364, kg, Start date: 11/27/22 16:00:00 JACKET PREPARER, Duration: 7 day, Stop date: 12/04/22 8:00:00 JACKET PREPARER, 0 valproic 2023-0 No 500 mg, 2 Jose Francisco zhang acid 250 mg 2-27 cap, l oral 22:00: Route: PO, [place] capsule(Dep 00 Drug form: ekene) CAP, Q8H, Dosing Weight 86.364, kg, Start date: 11/27/22 16:00:00 JACKET PREPARER, Duration: 7 day, Stop date: 12/04/22 8:00:00 JACKET PREPARER, 0 gabapentin 2023-0 No 100 mg, 1 Me moria 100 mg oral 2-27 cap, l capsule 17:20: Route: PO, Herm bernie 00 Drug form: CAP, Daily, Dosing Weight 86.364, kg, Priority: NOW, Start date: 11/27/22 11:20:00 JACKET PREPARER, Duration: 30 day, Stop date: 12/27/22 9:00:00 CDT, 0 gabapentin 2023-0 No 100 mg, 1 Me moria 100 mg oral 2-27 cap, l capsule 17:20: Route: PO, Herm bernie 00 Drug form: CAP, Daily, Dosing Weight 86.364, kg, Priority: NOW, Start date: 11/27/22 11:20:00 JACKET PREPARER, Duration: 30 day, Stop date: 12/27/22 9:00:00 CDT, 0 gabapentin 2023-0 No 100 mg, 1 Me moria 100 mg oral 2-27 cap, l capsule 17:20: Route: PO, Herm bernie 00 Drug form: CAP, Daily, Dosing Weight 86.364, kg, Priority: NOW, Start date: 11/27/22 11:20:00 JACKET PREPARER, Duration: 30 day, Stop date: 12/27/22 9:00:00 CDT, 0 gabapentin 2023-0 No 100 mg, 1 Me moria 100 mg oral 2-27 cap, l capsule 17:20: Route: PO, Herm bernie 00 Drug form: CAP, Daily, Dosing Weight 86.364, kg, Priority: NOW, Start date: 11/27/22 11:20:00 JACKET PREPARER, Duration: 30 day, Stop date: 12/27/22 9:00:00 CDT, 0 gabapentin 2023-0 No 100 mg, 1 Me moria 100 mg oral 2-27 cap, l capsule 17:20: Route: PO, Herm bernie 00 Drug form: CAP, Daily, Dosing Weight 86.364, kg, Priority: NOW, Start date: 11/27/22 11:20:00 JACKET PREPARER, Duration: 30 day, Stop date: 12/27/22 9:00:00 CDT, 0 gabapentin 2023-0 No 100 mg, 1 Me moria 100 mg oral 2-27 cap, l capsule 17:20: Route: PO, Herm bernie 00 Drug form: CAP, Daily, Dosing Weight 86.364, kg, Priority: NOW, Start date: 11/27/22 11:20:00 JACKET PREPARER, Duration: 30 day, Stop date: 12/27/22 9:00:00 CDT, 0 gabapentin 2023-0 No 100 mg, 1 Me moria 100 mg oral 2-27 cap, l capsule 17:20: Route: PO, Herm bernie 00 Drug form: CAP, Daily, Dosing Weight 86.364, kg, Priority: NOW, Start date: 11/27/22 11:20:00 JACKET PREPARER, Duration: 30 day, Stop date: 12/27/22 9:00:00 CDT, 0 levETIRAcet No Notes: Jose Francisco zhang am 2- (Same l 15:00: as:Keppra) docusate No Notes: Memoria 2-27 (Same as: l 15:00: Colace) (Do Not Crush) senna No Notes: Memoria 2-27 (Same as: l 15:00: Senokot) Saline No Notes: Memoria Flush 0.9% 2- (Same as: l 15:00: BD Posiflush) levETIRAcet No Notes: Jose Francisco zhang am 2-27 (Same l 15:00: as:Keppra) docusate No Notes: Memoria 2-27 (Same as: l 15:00: Colace) (Do Not Crush) senna No Notes: Memoria 2-27 (Same as: l 15:00: Senokot) [place] 00 Saline No Notes: Memoria Flush 0.9% 2-27 (Same as: l 15:00: BD [place] 00 Posiflush) levETIRAcet No Notes: Jose Francisco zhang am 2-27 (Same l 15:00: as:Keppra) [place] 00 docusate No Notes: Memoria 2-27 (Same as: l 15:00: Colace) Raul 00 (Do Not Crush) senna No Notes: Memoria 2-27 (Same as: l 15:00: Senokot) [place] 00 Saline No Notes: Memoria Flush 0.9% 2-27 (Same as: l 15:00: BD [place] 00 Posiflush) levETIRAcet No Notes: Jose Francisco zhang am 2-27 (Same l 15:00: as:Keppra) Raul 00 docusate No Notes: Memoria 2-27 (Same as: l 15:00: Colace) [place] 00 (Do Not Crush) senna No Notes: Memoria 2-27 (Same as: l 15:00: Senokot) Raul 00 Saline No Notes: Memoria Flush 0.9% 2-27 (Same as: l 15:00: BD [place] 00 Posiflush) levETIRAcet No Notes: Jose Francisco zhang am 2-27 (Same l 15:00: as:Keppra) Raul 00 docusate No Notes: Memoria 2-27 (Same as: l 15:00: Colace) [place] 00 (Do Not Crush) senna No Notes: Memoria 2-27 (Same as: l 15:00: Senokot) Raul 00 Saline No Notes: Memoria Flush 0.9% 2-27 (Same as: l 15:00: BD [place] 00 Posiflush) levETIRAcet No Notes: Jose Francisco zhang am 2-27 (Same l 15:00: as:Keppra) [place] 00 docusate No Notes: Memoria 2-27 (Same as: l 15:00: Colace) Raul 00 (Do Not Crush) senna No Notes: Memoria 2-27 (Same as: l 15:00: Senokot) [place] 00 Saline No Notes: Memoria Flush 0.9% 2-27 (Same as: l 15:00: BD Posiflush) levETIRAcet No Notes: Jose Francisco zhang am 2-27 (Same l 15:00: as:Keppra) Raul 00 docusate No Notes: Memoria 2-27 (Same as: l 15:00: Colace) Raul 00 (Do Not Crush) senna No Notes: Memoria 2-27 (Same as: l 15:00: Senokot) Saline No Notes: Memoria Flush 0.9% 2-27 [...] Weight 86.364, kg, Start date: 11/27/22 3:01:00 JACKET PREPARER, Duration: 3 doses or times, Stop date: 11/27/22 3:31:00 JACKET PREPARER, 0 Tylenol No Notes: Do Memor ia with 2-27 not exceed l Codeine #3 09:01: 4gm/day of H ermann oral tablet 00 acetaminop hen. (Same as: Tylenol with Codeine # 3) tramadol No Notes: Not Mem oria 2-27 to exceed l 09:01: 400mg/day. [place] 00 (Same As: Ultram) Saline No Notes: Memoria Flush 0.9% 11-27 (Same as: l 09:01: BD Raul Posiflush) Insulin No Notes: Memoria regular - [...] Weight 86.364, kg, Start date: 11/27/22 3:01:00 JACKET PREPARER, Duration: 3 doses or times, Stop date: 11/27/22 3:31:00 JACKET PREPARER, 0 Tylenol No Notes: Do Memor ia with 2-27 not exceed l Codeine #3 09:01: 4gm/day of H ermann oral tablet 00 acetaminop hen. (Same as: Tylenol with Codeine # 3) tramadol No Notes: Not Mem oria 2-27 to exceed l 09:01: 400mg/day. Raul (Same As: Ultram) Saline No Notes: Memoria Flush 0.9% - (Same as: l 09:01: BD [place] 00 Posiflush) Insulin No Notes: Memoria regular - (Same as: l 09:01: Humulin R) Roll in palms of hands gently; Do not shake vigorously . WASTE: F/P - Black; E - Municipal Trash Bin Stable for 31 days at room temperatur e Expires in days from ____Date acetaminoph No Notes: Do M emoria en -27 not exceed l 09:01: 4 gm/day. [place] 00 (Same as: Tylenol) bisacodyl No Notes: [...] Weight 86.364, kg, Start date: 11/27/22 3:01:00 JACKET PREPARER, Duration: 3 doses or times, Stop date: 11/27/22 3:31:00 JACKET PREPARER, 0 Tylenol No Notes: Do Memor ia with 2-27 not exceed l Codeine #3 09:01: 4gm/day of H ermann oral tablet 00 acetaminop hen. (Same as: Tylenol with Codeine # 3) tramadol No Notes: Not Mem oria 2-27 to exceed l 09:01: 400mg/day. [place] (Same As: Ultram) Saline No Notes: Memoria Flush 0.9% - (Same as: l 09:: BD Raul 00 Posiflush) Insulin No Notes: [...] Weight 86.364, kg, Start date: 11/27/22 3:01:00 JACKET PREPARER, Duration: 3 doses or times, Stop date: 11/27/22 3:31:00 JACKET PREPARER, 0 Tylenol No Notes: Do Memor ia with 2-27 not exceed l Codeine #3 09:01: 4gm/day of H ermann oral tablet 00 acetaminop hen. (Same as: Tylenol with Codeine # 3) tramadol No Notes: Not Mem oria 2-27 to exceed l 09:01: 400mg/day. Raul (Same As: Ultram) Saline No Notes: Memoria Flush 0.9% - (Same as: l 09:: BD Posiflush) Insulin No Notes: Memoria regular - (Same as: l 09:01: Humulin R) Roll in palms of hands gently; Do not shake vigorously . WASTE: F/P - Black; E - Municipal Trash Bin Stable for 31 days at room temperatur e Expires in days from ____Date acetaminoph No Notes: Do M emoria en - not exceed l 09:: 4 gm/day. Raul 00 (Same as: Tylenol) [...] Weight 86.364, kg, Start date: 11/27/22 3:01:00 JACKET PREPARER, Duration: 3 doses or times, Stop date: 11/27/22 3:31:00 JACKET PREPARER, 0 Tylenol No Notes: Do Memor ia with 2-27 not exceed l Codeine #3 09:01: 4gm/day of H ermann oral tablet 00 acetaminop hen. (Same as: Tylenol with Codeine # 3) tramadol No Notes: Not Mem oria -27 to exceed l 09:01: 400mg/day. Raul (Same As: Ultram) Saline No Notes: Memoria Flush 0.9% 11-27 (Same as: l 09:01: BD Posiflush) Insulin No Notes: Memoria regular 11-27 (Same as: l 09:: Humulin R) Roll in palms of hands gently; Do not shake vigorously . WASTE: F/P - Black; E - Municipal Trash Bin Stable for 31 days at room temperatur e Expires in days from ____Date acetaminoph No Notes: Do M emoria en 11-27 not exceed l 09:01: 4 gm/day. (Same [...] Weight 86.364, kg, Start date: 11/27/22 3:01:00 JACKET PREPARER, Duration: 3 doses or times, Stop date: 11/27/22 3:31:00 JACKET PREPARER, 0 Tylenol No Notes: Do Memor ia with 2-27 not exceed l Codeine #3 09:01: 4gm/day of H ermann oral tablet 00 acetaminop hen. (Same as: Tylenol with Codeine # 3) tramadol No Notes: Not Mem oria 2-27 to exceed l 09:01: 400mg/day. [place] (Same As: Ultram) Saline No Notes: Memoria [...] M emoria en 11-27 not exceed l 09:01: 4 gm/day. [place] 00 (Same as: Tylenol) bisacodyl No Notes: Memori a - (Same As: l 09:01: Dulcolax, [place] 00 Bisco-Lax) ondansetron No Notes: Jose Francisco zhang -27 (Same as: l 09:01: Zofran) MEDICATION WASTE Product Size: 4 mg Product Wasted: ___ mg hydrALAZINE No Notes: Jose Francisco zhang 2-27 (Same as: l 09:01: Apresoline ) Push over 5 minutes labetalol No 10 mg, 2 Jose Francisco zhang 2-27 mL, Route: l 09:01: IVP, Drug form: INJ, Q15Min, Dosing Weight 86.364, kg, Start date: 11/27/22 3:01:00 JACKET PREPARER, Duration: 3 doses or times, Stop date: 11/27/22 3:31:00 JACKET PREPARER, 0 Tylenol No Notes: Do Memor ia [...] kg, Priority: STAT, Start date: 11/27/22 0:27:00 JACKET PREPARER, Stop date: 11/27/22 0:27:00 JACKET PREPARER Keppra 2022-0 No 1,000 mg, Memori a 11-27 Route: l 06:27: IVPB, Drug form: INJ, ONCE, Dosing Weight 86.364, kg, Loading Dose, Priority: STAT, Start date: 11/27/22 0:27:00 JACKET PREPARER, Stop date: 11/27/22 0:27:00 JACKET PREPARER acetaminoph 2022-0 No 1,000 mg, M emoria en 11-27 Route: PO, l 06:27: Drug form: [place] 00 TAB, ONCE, Dosing Weight 86.364, kg, Priority: STAT, Start date: 11/27/22 0:27:00 JACKET PREPARER, Stop date: 11/27/22 0:27:00 JACKET PREPARER Keppra 2022-0 No 1,000 mg, Memori a 11-27 Route: l 06:27: IVPB, Drug [place] 00 form: INJ, ONCE, Dosing Weight 86.364, kg, Loading Dose, Priority: STAT, Start date: 11/27/22 0:27:00 JACKET PREPARER, Stop date: 11/27/22 0:27:00 JACKET PREPARER acetaminoph 2022-0 No 1,000 mg, M emoria en 11-27 Route: PO, l 06:27: Drug form: [place] 00 TAB, ONCE, Dosing Weight 86.364, kg, Priority: STAT, Start date: 11/27/22 0:27:00 JACKET PREPARER, Stop date: 11/27/22 0:27:00 JACKET PREPARER Keppra 2023-0 No 1,000 mg, Memori a 11-27 Route: l 06:27: IVPB, Drug Raul 00 form: INJ, ONCE, Dosing Weight 86.364, kg, Loading Dose, Priority: STAT, Start date: 11/27/22 0:27:00 JACKET PREPARER, Stop date: 11/27/22 0:27:00 JACKET PREPARER acetaminoph 2023-0 No 1,000 mg, M emoria en 11-27 Route: PO, l 06:27: Drug form: [place] 00 TAB, ONCE, Dosing Weight 86.364, kg, Priority: STAT, Start date: 11/27/22 0:27:00 JACKET PREPARER, Stop date: 11/27/22 0:27:00 JACKET PREPARER Keppra 2023-0 No 1,000 mg, Memori a 11-27 Route: l 06:27: IVPB, Drug Raul 00 form: INJ, ONCE, Dosing Weight 86.364, kg, Loading Dose, Priority: STAT, Start date: 11/27/22 0:27:00 JACKET PREPARER, Stop date: 11/27/22 0:27:00 JACKET PREPARER acetaminoph 2023-0 No 1,000 mg, M emoria en 11-27 Route: PO, l 06:27: Drug form: Raul 00 TAB, ONCE, Dosing Weight 86.364, kg, Priority: STAT, Start date: 11/27/22 0:27:00 JACKET PREPARER, Stop date: 11/27/22 0:27:00 JACKET PREPARER Keppra 2023-0 No 1,000 mg, Memori a 11-27 Route: l 06:27: IVPB, Drug [place] 00 form: INJ, ONCE, Dosing Weight 86.364, kg, Loading Dose, Priority: STAT, Start date: 11/27/22 0:27:00 JACKET PREPARER, Stop date: 11/27/22 0:27:00 JACKET PREPARER acetaminoph 2023-0 No 1,000 mg, M emoria en 11-27 Route: PO, l 06:27: Drug form: Raul 00 TAB, ONCE, Dosing Weight 86.364, kg, Priority: STAT, Start date: 11/27/22 0:27:00 JACKET PREPARER, Stop date: 11/27/22 0:27:00 JACKET PREPARER Keppra 3-0 No 1,000 mg, Memori a 11-27 Route: l 06:27: IVPB, Drug [place] 00 form: INJ, ONCE, Dosing Weight 86.364, kg, Loading Dose, Priority: STAT, Start date: 11/27/22 0:27:00 JACKET PREPARER, Stop date: 11/27/22 0:27:00 JACKET PREPARER acetaminoph 3-0 No 1,000 mg, M emoria en 11-27 Route: PO, l 06:27: Drug form: Raul 00 TAB, ONCE, Dosing Weight 86.364, kg, Priority: STAT, Start date: 11/27/22 0:27:00 JACKET PREPARER, Stop date: 11/27/22 0:27:00 JACKET PREPARER Keppra 2022-0 No 1,000 mg, Memori a 11-27 Route: l 06:27: IVPB, Drug [place] 00 form: INJ, ONCE, Dosing Weight 86.364, kg, Loading Dose, Priority: STAT, Start date: 11/27/22 0:27:00 JACKET PREPARER, Stop date: 11/27/22 0:27:00 JACKET PREPARER heparin 2022-0 No Notes: Memoria 5000 2-22 [...] heparin Ajay n injectable 00 solution Tylenol 2022-0 Yes 1 tab, PO, Jose Francisco zhang with 2-22 Q6H, PRN l Codeine #3 19:14: Pain Score H ermann oral tablet 00 4-6, X 3 day, # 12 tab, 0 Refill(s), Pharmacy: [facility] #[id number], 149.86, cm, 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, Height, 86.364, kg, 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, Weight Tylenol 2022-0 No 1 tab, PO, Jose Francisco zhang with 2-22 Q6H, PRN l Codeine #3 19:14: Pain Score H ermann oral tablet 00 4-6, X 3 day, # 12 tab, 0 Refill(s), Pharmacy: [facility] #[id number], 149.86, cm, 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, Height, 86.364, kg, 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, Weight Tylenol 2022-0 No 1 tab, PO, Jose Francisco zhang with 2-22 Q6H, PRN l Codeine #3 19:14: Pain Score H ermann oral tablet 00 4-6, X 3 day, # 12 tab, 0 Refill(s), Pharmacy: [facility] #[id number], 149.86, cm, 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, Height, 86.364, kg, 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, Weight Tylenol 2022-0 No 1 tab, PO, Jose Francisco zhang with 2-22 Q6H, PRN l Codeine #3 19:14: Pain Score H ermann oral tablet 00 4-6, X 3 day, # 12 tab, 0 Refill(s), Pharmacy: [facility] #[id number], 149.86, cm, 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, Height, 86.364, kg, 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, Weight Tylenol 3-0 No 1 tab, PO, Jose Francisco zhang with 2-22 Q6H, PRN l Codeine #3 19:14: Pain Score H ermann oral tablet 00 4-6, X 3 day, # 12 tab, 0 Refill(s), Pharmacy: [facility] #[id number], 149.86, cm, 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, Height, 86.364, kg, 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, Weight Tylenol 2022-0 No 1 tab, PO, Jose Francisco zhang with 2-22 Q6H, PRN l Codeine #3 19:14: Pain Score H ermann oral tablet 00 4-6, X 3 day, # 12 tab, 0 Refill(s), Pharmacy: [facility] #[id number], 149.86, cm, 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, Height, 86.364, kg, 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, Weight Tylenol 2022-0 No 1 tab, PO, Jose Francisco zhang with 2-22 Q6H, PRN l Codeine #3 19:14: Pain Score H ermann oral tablet 00 4-6, X 3 day, # 12 tab, 0 Refill(s), Pharmacy: [facility] #[id number], 149.86, cm, 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, Height, 86.364, kg, 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, Weight Tylenol 2022-0 Yes 1 tab, PO, Jose Francisco zhang with 2-22 Q6H, PRN l Codeine #3 19:14: Pain Score H ermann oral tablet 00 4-6, X 3 day, # 12 tab, 0 Refill(s), Pharmacy: [facility] #[id number], 149.86, cm, 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, Height, 86.364, kg, 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, Weight Tylenol 2022-0 No 1 tab, PO, Jose Francisco zhang with 2-22 Q6H, PRN l Codeine #3 19:14: Pain Score H ermann oral tablet 00 4-6, X 3 day, # 12 tab, 0 Refill(s), Pharmacy: [facility] #[id number], 149.86, cm, 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, Height, 86.364, kg, 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, Weight gabapentin 3-0 Yes 100 mg = 1 M emoria 100 mg oral 2-22 cap, PO, l capsule 19:13: Daily, # Ajay n 00 10 cap, 0 Refill(s), Pharmacy: [facility] #[id number], 149.86, cm, 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, Height, 86.364, kg, 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, Weight Keppra 500 2022-0 Yes 500 mg = 1 M emoria mg oral 2-22 tab, PO, l tablet 19:13: Q12H, # 12 Jessie nn 00 tab, 0 Refill(s), Pharmacy: [facility] #[id number], 149.86, cm, 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, Height, 86.364, kg, 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, Weight methocarbam 2022-0 Yes 500 mg = 1 Memoria ol 500 mg 2-22 tab, PO, l oral tablet 19:13: Q8H, X 10 H ermann 00 day, # 30 tab, 0 Refill(s), Pharmacy: [facility] #[id number], 149.86, cm, 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, Height, 86.364, kg, 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, Weight Zofran 4 mg 2022-0 Yes 4 mg = 1 Me moria oral tablet 2-22 tab, PO, l 19:13: Q8H, PRN Seadrift 00 Nausea/vom iting, X 7 day, # 21 tab, 0 Refill(s), Pharmacy: [facility] #[id number], 149.86, cm, 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, Height, 86.364, kg, 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, Weight gabapentin 2022-0 Yes 100 mg = 1 M emoria 100 mg oral 2-22 cap, PO, l capsule 19:13: Daily, # Ajay n 00 10 cap, 0 Refill(s), Pharmacy: [facility] cy #[id number], 149.86, cm, 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, Height, 86.364, kg, 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, Weight Keppra 500 2022-0 Yes 500 mg = 1 M emoria mg oral 2-22 tab, PO, l tablet 19:13: Q12H, # 12 Jessie nn 00 tab, 0 Refill(s), Pharmacy: [facility] #[id number], 149.86, cm, 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, Height, 86.364, kg, 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, Weight methocarbam 2022-0 Yes 500 mg = 1 Memoria ol 500 mg 2-22 tab, PO, l oral tablet 19:13: Q8H, X 10 H ermann 00 day, # 30 tab, 0 Refill(s), Pharmacy: [facility] #[id number], 149.86, cm, 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, Height, 86.364, kg, 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, Weight Zofran 4 mg 2022-0 Yes 4 mg = 1 Me moria oral tablet 2-22 tab, PO, l 19:13: Q8H, PRN Seadrift 00 Nausea/vom iting, X 7 day, # 21 tab, 0 Refill(s), Pharmacy: [facility] #[id number], 149.86, cm, 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, Height, 86.364, kg, 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, Weight gabapentin 2022-0 Yes 100 mg = 1 M emoria 100 mg oral 2-22 cap, PO, l capsule 19:13: Daily, # Ajay n 00 10 cap, 0 Refill(s), Pharmacy: [facility] #[id number], 149.86, cm, 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, Height, 86.364, kg, 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, Weight Keppra 500 2022-0 Yes 500 mg = 1 M emoria mg oral 2-22 tab, PO, l tablet 19:13: Q12H, # 12 Jessie nn 00 tab, 0 Refill(s), Pharmacy: [facility] #[id number], 149.86, cm, 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, 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, 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, kg, 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, 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 methocarbam 2022-0 Yes 500 mg = 1 Memoria ol 500 mg 2-22 tab, PO, l oral tablet 19:13: Q8H, X 10 H ermann 00 day, # 30 tab, 0 Refill(s), Pharmacy: [facility] #[id number], 149.86, cm, 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, Height, 86.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, kg, 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, 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 Zofran 4 mg 2022-0 Yes 4 mg = 1 Me moria oral tablet 2-22 tab, PO, l 19:13: Q8H, PRN Raul 00 Nausea/vom iting, X 7 day, # 21 tab, 0 Refill(s), Pharmacy: [facility] #[id number], 149.86, cm, 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, Height, 86.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, kg, 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, 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 gabapentin 2022-0 Yes 100 mg = 1 M emoria 100 mg oral 2-22 cap, PO, l capsule 19:13: Daily, # Ajay n 00 10 cap, 0 Refill(s), Pharmacy: [facility] #[id number], 149.86, cm, 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, 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, 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, kg, 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, 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 Keppra 500 2022-0 Yes 500 mg = 1 M emoria mg oral 2-22 tab, PO, l tablet 19:13: Q12H, # 12 Jessie nn 00 tab, 0 Refill(s), Pharmacy: [facility] #[id number], 149.86, cm, 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, Height, 86.364, kg, 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, Weight methocarbam 2022-0 Yes 500 mg = 1 Memoria ol 500 mg 2-22 tab, PO, l oral tablet 19:13: Q8H, X 10 H ermann 00 day, # 30 tab, 0 Refill(s), Pharmacy: [facility] #[id number], 149.86, cm, 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, Height, 86.364, kg, 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, Weight Zofran 4 mg 3-0 Yes 4 mg = 1 Me moria oral tablet 2-22 tab, PO, l 19:13: Q8H, PRN [place] 00 Nausea/vom iting, X 7 day, # 21 tab, 0 Refill(s), Pharmacy: [facility] #[id number], 149.86, cm, 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, Height, 86.364, kg, 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, Weight gabapentin 2022-0 Yes 100 mg = 1 M emoria 100 mg oral 2-22 cap, PO, l capsule 19:13: Daily, # Ajay n 00 10 cap, 0 Refill(s), Pharmacy: [facility] #[id number], 149.86, cm, 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, Height, 86.364, kg, 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, Weight Keppra 500 2022-0 Yes 500 mg = 1 M emoria mg oral 2-22 tab, PO, l tablet 19:13: Q12H, # 12 Jessie nn 00 tab, 0 Refill(s), Pharmacy: [facility] #[id number], 149.86, cm, 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, Height, 86.364, kg, 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, Weight methocarbam 2022-0 Yes 500 mg = 1 Memoria ol 500 mg 2-22 tab, PO, l oral tablet 19:13: Q8H, X 10 H ermann 00 day, # 30 tab, 0 Refill(s), Pharmacy: [facility] #[id number], 149.86, cm, 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, Height, 86.364, kg, 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, Weight Zofran 4 mg 3-0 Yes 4 mg = 1 Me moria oral tablet 2-22 tab, PO, l 19:13: Q8H, PRN Raul 00 Nausea/vom iting, X 7 day, # 21 tab, 0 Refill(s), Pharmacy: [facility] #[id number], 149.86, cm, 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, Height, 86.364, kg, 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, Weight gabapentin 2022-0 Yes 100 mg = 1 M emoria 100 mg oral 2-22 cap, PO, l capsule 19:13: Daily, # Ajay n 00 10 cap, 0 Refill(s), Pharmacy: [facility] #[id number], 149.86, cm, 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, Height, 86.364, kg, 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, Weight Keppra 500 2022-0 Yes 500 mg = 1 M emoria mg oral 2-22 tab, PO, l tablet 19:13: Q12H, # 12 Jessie nn 00 tab, 0 Refill(s), Pharmacy: [facility] #[id number], 149.86, cm, 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, Height, 86.364, kg, 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, Weight methocarbam 2022-0 Yes 500 mg = 1 Memoria ol 500 mg 2-22 tab, PO, l oral tablet 19:13: Q8H, X 10 H ermann 00 day, # 30 tab, 0 Refill(s), Pharmacy: [facility] #[id number], 149.86, cm, 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, Height, 86.364, kg, 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, Weight Zofran 4 mg 2022-0 Yes 4 mg = 1 Me moria oral tablet 2-22 tab, PO, l 19:13: Q8H, PRN Raul 00 Nausea/vom iting, X 7 day, # 21 tab, 0 Refill(s), Pharmacy: [facility] #[id number], 149.86, cm, 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, Height, 86.364, kg, 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, Weight gabapentin 2022-0 Yes 100 mg = 1 M emoria 100 mg oral 2-22 cap, PO, l capsule 19:13: Daily, # Ajay n 00 10 cap, 0 Refill(s), Pharmacy: [facility] #[id number], 149.86, cm, 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, Height, 86.364, kg, 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, Weight Keppra 500 2022-0 Yes 500 mg = 1 M emoria mg oral 2-22 tab, PO, l tablet 19:13: Q12H, # 12 Jessie nn 00 tab, 0 Refill(s), Pharmacy: [facility] #[id number], 149.86, cm, 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, Height, 86.364, kg, 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, Weight methocarbam 2022-0 Yes 500 mg = 1 Memoria ol 500 mg 2-22 tab, PO, l oral tablet 19:13: Q8H, X 10 H ermann 00 day, # 30 tab, 0 Refill(s), Pharmacy: [facility] #[id number], 149.86, cm, 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, Height, 86.364, kg, 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, Weight Zofran 4 mg 2022-0 Yes 4 mg = 1 Me moria oral tablet 2-22 tab, PO, l 19:13: Q8H, PRN [place] 00 Nausea/vom iting, X 7 day, # 21 tab, 0 Refill(s), Pharmacy: [facility] #[id number], 149.86, cm, 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, Height, 86.364, kg, 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, Weight gabapentin 2022-0 Yes 100 mg = 1 M emoria 100 mg oral 2-22 cap, PO, l capsule 19:13: Daily, # Ajay n 00 10 cap, 0 Refill(s), Pharmacy: [facility] #[id number], 149.86, cm, 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, Height, 86.364, kg, 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, Weight Keppra 500 2022-0 Yes 500 mg = 1 M emoria mg oral 2-22 tab, PO, l tablet 19:13: Q12H, # 12 Jessie nn 00 tab, 0 Refill(s), Pharmacy: [facility] #[id number], 149.86, cm, 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, Height, 86.364, kg, 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, Weight methocarbam 2022-0 Yes 500 mg = 1 Memoria ol 500 mg 2-22 tab, PO, l oral tablet 19:13: Q8H, X 10 H ermann 00 day, # 30 tab, 0 Refill(s), Pharmacy: [facility] #[id number], 149.86, cm, 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, Height, 86.364, kg, 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, Weight Zofran 4 mg 2022-0 Yes 4 mg = 1 Me moria oral tablet 2-22 tab, PO, l 19:13: Q8H, PRN [place] 00 Nausea/vom iting, X 7 day, # 21 tab, 0 Refill(s), Pharmacy: [facility] #[id number], 149.86, cm, 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, Height, 86.364, kg, 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, Weight gabapentin 2022-0 Yes 100 mg = 1 M emoria 100 mg oral 2-22 cap, PO, l capsule 19:13: Daily, # Ajay n 00 10 cap, 0 Refill(s), Pharmacy: [facility] #[id number], 149.86, cm, 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, Height, 86.364, kg, 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, Weight Keppra 500 2022-0 Yes 500 mg = 1 M emoria mg oral 2-22 tab, PO, l tablet 19:13: Q12H, # 12 Jessie nn 00 tab, 0 Refill(s), Pharmacy: [facility] #[id number], 149.86, cm, 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, Height, 86.364, kg, 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, Weight methocarbam 3-0 Yes 500 mg = 1 Memoria ol 500 mg 2-22 tab, PO, l oral tablet 19:13: Q8H, X 10 H ermann 00 day, # 30 tab, 0 Refill(s), Pharmacy: [facility] #[id number], 149.86, cm, 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, Height, 86.364, kg, 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, Weight Zofran 4 mg Yes 4 mg = 1 Me moria oral tablet 2-22 tab, PO, l 19:13: Q8H, PRN Raul 00 Nausea/vom iting, X 7 day, # 21 tab, 0 Refill(s), Pharmacy: [facility] #[id number], 149.86, cm, 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, Height, 86.364, kg, 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, Weight donepezil No Notes: Memori a 2-22 (Same as: l 15:00: Aricept) [place] 00 ferrous No Notes: Memoria sulfate 2-22 [...] 00 mg, Route: PO, Daily, 11/22/22 9:00:00 JACKET PREPARER, Duration: 30 day, Stop date: 12/21/22 9:00:00 CDT donepezil No Notes: Memori a 2-22 (Same as: l 15:00: Aricept) [place] 00 ferrous No Notes: Memoria sulfate 2-22 [...] 00 mg, Route: PO, Daily, 11/22/22 9:00:00 JACKET PREPARER, Duration: 30 day, Stop date: 12/21/22 9:00:00 [...] ne 2-22 Take 1 l 15:00: hour [place] 00 before or 2 hours after meal; [...] 00 mg, Route: PO, Daily, 11/22/22 9:00:00 JACKET PREPARER, Duration: 30 day, Stop date: 12/21/22 9:00:00 [...] 00 mg, Route: PO, Daily, 11/22/22 9:00:00 JACKET PREPARER, Duration: 30 day, Stop date: 12/21/22 9:00:00 CDT donepezil No Notes: Memori a 2-22 (Same as: l 15:00: Aricept) [place] ferrous No Notes: Memoria sulfate 2-22 Give with l 15:00: food. "Do Raul 00 Not Crush" Lasix No Notes: Memoria 2-22 (Same as: l 15:00: Lasix) January cause GI upset. Give with food or milk. levothyroxi No Notes: Jose Francisco zhang ne 2-22 Take 1 l 15:00: hour [place] 00 before or 2 hours after meal; [...] 00 mg, Route: PO, Daily, 11/22/22 9:00:00 JACKET PREPARER, Duration: 30 day, Stop date: 12/21/22 9:00:00 CDT donepezil No Notes: Memori a 2-22 (Same as: l 15:00: Aricept) [place] 00 ferrous No Notes: Memoria sulfate 2-22 Give with l 15:00: food. "Do Not Crush" Lasix No Notes: Memoria 2-22 (Same as: l 15:00: Lasix) January cause GI upset. Give with food or milk. levothyroxi No Notes: Jose Francisco zhang ne 2-22 Take 1 l 15:00: hour [place] 00 before or 2 hours after meal; [...] 00 mg, Route: PO, Daily, 11/22/22 9:00:00 JACKET PREPARER, Duration: 30 day, Stop date: 12/21/22 9:00:00 CDT donepezil No Notes: Memori a 2-22 (Same as: l 15:00: Aricept) [place] 00 ferrous No Notes: Memoria sulfate 2-22 [...] l tablet, 15:00: Adalat CC, Herm bernie Procardia release XL) Give on empty stomach. Take 1 hour before or 2 hours after meal; "Avoid grapefruit and grapefruit juice". Do not crush Kerendia 10 No Kerendia Me moria mg oral 2-22 10 mg oral l tablet 15:00: tablet, 10 Jessie nn 00 mg, Route: PO, Daily, 11/22/22 9:00:00 JACKET PREPARER, Duration: 30 day, Stop date: 12/21/22 9:00:00 CDT Keppra 500 No Notes: Memor ia mg oral 2-22 (Same l tablet 03:00: as:Keppra) Jessie nn 00 Coreg No Notes: Memoria 2-22 Give with l 03:00: food. [place] 00 (Same As: Coreg) Lexapro No 20 mg, 2 Memori a 2-22 tab, l 03:00: Route: PO, [place] 00 Drug form: TAB, Q12H, Dosing Weight 86.364, kg, 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/22 21:00:00 JACKET PREPARER, Duration: 30 day, Stop date: 12/21/22 9:00:00 CDT, 0 Pepcid 40 2022-0 No Notes: Memori a mg oral 2-22 (Same as: l tablet 03:00: Pepcid) lovastatin 0 No 20 mg, 1 Mem oria 2-22 tab, l 03:00: Route: PO, Drug form: TAB, Bedtime, Dosing Weight 86.364, kg, 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/22 21:00:00 JACKET PREPARER, Duration: 30 day, Stop date: 12/20/22 21:00:00 CDT primidone 0 No 50 mg, 1 Jose Francisco zhang 2-22 tab, l 03:00: Route: PO, Drug form: TAB, Bedtime, Dosing Weight 86.364, kg, 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/22 21:00:00 JACKET PREPARER, Duration: 30 day, Stop date: 12/20/22 21:00:00 CDT, 0 rOPINIRole 0 No 4 mg, 2 Jose Francisco zhang 2-22 tab, l 03:00: Route: PO, Drug form: TAB, Q12H, Dosing Weight 86.364, kg, 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/22 21:00:00 JACKET PREPARER, Duration: 30 day, Stop date: 12/21/22 9:00:00 [...] Weight 86.364, kg, 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/22 21:00:00 JACKET PREPARER, Duration: 30 day, Stop date: 12/21/22 9:00:00 CDT, 0 Pepcid 40 0 No Notes: Memori a mg oral 2-22 (Same as: l tablet 03:00: Pepcid) lovastatin 0 No 20 mg, 1 Mem oria 2-22 tab, l 03:00: Route: PO, Drug form: TAB, Bedtime, Dosing Weight 86.364, kg, 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/22 21:00:00 JACKET PREPARER, Duration: 30 day, Stop date: 12/20/22 21:00:00 CDT primidone 2022-0 No 50 mg, 1 Jose Francisco zhang 2-22 tab, l 03:00: Route: PO, Drug form: TAB, Bedtime, Dosing Weight 86.364, kg, 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/22 21:00:00 JACKET PREPARER, Duration: 30 day, Stop date: 12/20/22 21:00:00 CDT, 0 rOPINIRole 0 No 4 mg, 2 Jose Francisco zhang 2-22 tab, l 03:00: Route: PO, Drug form: TAB, Q12H, Dosing Weight 86.364, kg, 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/22 21:00:00 JACKET PREPARER, Duration: 30 day, Stop date: 12/21/22 9:00:00 [...] Weight 86.364, kg, 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/22 21:00:00 JACKET PREPARER, Duration: 30 day, Stop date: 12/21/22 9:00:00 CDT, 0 Pepcid 40 No Notes: Memori a mg oral 2-22 (Same as: l tablet 03:00: Pepcid) lovastatin 0 No 20 mg, 1 Mem oria 2-22 tab, l 03:00: Route: PO, Drug form: TAB, Bedtime, Dosing Weight 86.364, kg, 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/22 21:00:00 JACKET PREPARER, Duration: 30 day, Stop date: 12/20/22 21:00:00 CDT primidone 2022-0 No 50 mg, 1 Jose Francisco zhang 2-22 tab, l 03:00: Route: PO, Drug form: TAB, Bedtime, Dosing Weight 86.364, kg, 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/22 21:00:00 JACKET PREPARER, Duration: 30 day, Stop date: 12/20/22 21:00:00 CDT, 0 rOPINIRole 2022-0 No 4 mg, 2 Jose Francisco zhang 2-22 tab, l 03:00: Route: PO, Drug form: TAB, Q12H, Dosing Weight 86.364, kg, 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/22 21:00:00 JACKET PREPARER, Duration: 30 day, Stop date: 12/21/22 9:00:00 [...] Weight 86.364, kg, 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/22 21:00:00 JACKET PREPARER, Duration: 30 day, Stop date: 12/21/22 9:00:00 CDT, 0 Pepcid 40 2022-0 No Notes: Memori a mg oral 2-22 (Same as: l tablet 03:00: Pepcid) lovastatin 0 No 20 mg, 1 Mem oria 2-22 tab, l 03:00: Route: PO, Drug form: TAB, Bedtime, Dosing Weight 86.364, kg, 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/22 21:00:00 JACKET PREPARER, Duration: 30 day, Stop date: 12/20/22 21:00:00 CDT primidone 0 No 50 mg, 1 Jose Francisco zhang 2-22 tab, l 03:00: Route: PO, Drug form: TAB, Bedtime, Dosing Weight 86.364, kg, 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/22 21:00:00 JACKET PREPARER, Duration: 30 day, Stop date: 12/20/22 21:00:00 CDT, 0 rOPINIRole 0 No 4 mg, 2 Jose Francisco zhang 2-22 tab, l 03:00: Route: PO, Drug form: TAB, Q12H, Dosing Weight 86.364, kg, 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/22 21:00:00 JACKET PREPARER, Duration: 30 day, Stop date: 12/21/22 9:00:00 [...] Weight 86.364, kg, 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/22 21:00:00 JACKET PREPARER, Duration: 30 day, Stop date: 12/21/22 9:00:00 CDT, 0 Pepcid 40 2022-0 No Notes: Memori a mg oral 2-22 (Same as: l tablet 03:00: Pepcid) lovastatin 0 No 20 mg, 1 Mem oria 2-22 tab, l 03:00: Route: PO, Drug form: TAB, Bedtime, Dosing Weight 86.364, kg, 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/22 21:00:00 JACKET PREPARER, Duration: 30 day, Stop date: 12/20/22 21:00:00 CDT primidone 2022-0 No 50 mg, 1 Jose Francisco zhang 2-22 tab, l 03:00: Route: PO, Drug form: TAB, Bedtime, Dosing Weight 86.364, kg, 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/22 21:00:00 JACKET PREPARER, Duration: 30 day, Stop date: 12/20/22 21:00:00 CDT, 0 rOPINIRole 2022-0 No 4 mg, 2 Jose Francisco zhang 2-22 tab, l 03:00: Route: PO, Drug form: TAB, Q12H, Dosing Weight 86.364, kg, 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/22 21:00:00 JACKET PREPARER, Duration: 30 day, Stop date: 12/21/22 9:00:00 [...] Weight 86.364, kg, 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/22 21:00:00 JACKET PREPARER, Duration: 30 day, Stop date: 12/21/22 9:00:00 CDT, 0 Pepcid 40 2022-0 No Notes: Memori a mg oral 2-22 (Same as: l tablet 03:00: Pepcid) lovastatin 2022-0 No 20 mg, 1 Mem oria 2-22 tab, l 03:00: Route: PO, Drug form: TAB, Bedtime, Dosing Weight 86.364, kg, 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/22 21:00:00 JACKET PREPARER, Duration: 30 day, Stop date: 12/20/22 21:00:00 CDT primidone 2022-0 No 50 mg, 1 Jose Francisco zhang 2-22 tab, l 03:00: Route: PO, [place] 00 Drug form: TAB, Bedtime, Dosing Weight 86.364, kg, 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/22 21:00:00 JACKET PREPARER, Duration: 30 day, Stop date: 12/20/22 21:00:00 CDT, 0 rOPINIRole 2022-0 No 4 mg, 2 Jose Francisco zhang 2-22 tab, l 03:00: Route: PO, Drug form: TAB, Q12H, Dosing Weight 86.364, kg, 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/22 21:00:00 JACKET PREPARER, Duration: 30 day, Stop date: 12/21/22 9:00:00 [...] Weight 86.364, kg, 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/22 21:00:00 JACKET PREPARER, Duration: 30 day, Stop date: 12/21/22 9:00:00 CDT, 0 Pepcid 40 2022-0 No Notes: Memori a mg oral 2-22 (Same as: l tablet 03:00: Pepcid) lovastatin 2022-0 No 20 mg, 1 Mem oria 2-22 tab, l 03:00: Route: PO, Drug form: TAB, Bedtime, Dosing Weight 86.364, kg, 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/22 21:00:00 JACKET PREPARER, Duration: 30 day, Stop date: 12/20/22 21:00:00 CDT primidone 2022-0 No 50 mg, 1 Jose Francisco zhang 2-22 tab, l 03:00: Route: PO, Drug form: TAB, Bedtime, Dosing Weight 86.364, kg, 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/22 21:00:00 JACKET PREPARER, Duration: 30 day, Stop date: 12/20/22 21:00:00 CDT, 0 rOPINIRole No 4 mg, 2 Jose Francisco zhang 2-22 tab, l 03:00: Route: PO, Drug form: TAB, Q12H, Dosing Weight 86.364, kg, 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/22 21:00:00 JACKET PREPARER, Duration: 30 day, Stop date: 12/21/22 9:00:00 CDT, 0 Lipitor 0 No Notes: Memoria 2-22 (Same As: l 03:00: Lipitor) Raul 00 Robaxin No Notes: Memoria 2-22 (Same l 00:27: as:Robaxin Raul 00 ) Robaxin 0 No Notes: Memoria 2-22 (Same l 00:27: as:Robaxin [place] 00 ) Robaxin 0 No Notes: Memoria 2-22 (Same l 00:27: as:Robaxin [place] 00 ) Robaxin 0 No Notes: Memoria 2-22 (Same l 00:27: as:Robaxin Raul 00 ) Robaxin 2022-0 No Notes: Memoria 2-22 (Same l 00:27: as:Robaxin Raul 00 ) Robaxin 0 No Notes: Memoria 2-22 (Same l 00:27: as:Robaxin Raul 00 ) Robaxin 0 No Notes: Memoria 2-22 (Same l 00:27: as:Robaxin Raul 00 ) Tylenol No Notes: Do Memor ia with [...] Total Volume: 1,000, 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/22 16:13:00 JACKET PREPARER, Duration: 30 day, Stop date: 12/21/22 16:12:00 CDT, BSA: 1.93 m2, 0 normal 2023-0 No 1,000 mL, Memori a saline 0.9% 2-21 Rate: 75 l IV 1,000 mL 22:13: ml/hr, Herm bernie 00 Infuse over: 13.3 hr, Route: IV, Dosing Weight 86.364 kg, Total Volume: 1,000, 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/22 16:13:00 JACKET PREPARER, Duration: 30 day, Stop date: 12/21/22 16:12:00 CDT, BSA: 1.93 m2, 0 normal 2023-0 No 1,000 mL, Memori a saline 0.9% 2-21 Rate: 75 l IV 1,000 mL 22:13: ml/hr, Herm bernie 00 Infuse over: 13.3 hr, Route: IV, Dosing Weight 86.364 kg, Total Volume: 1,000, 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/22 16:13:00 JACKET PREPARER, Duration: 30 day, Stop date: 12/21/22 16:12:00 CDT, BSA: 1.93 m2, 0 normal 2023-0 No 1,000 mL, Memori a saline 0.9% 2-21 Rate: 75 l IV 1,000 mL 22:13: ml/hr, Herm bernie 00 Infuse over: 13.3 hr, Route: IV, Dosing Weight 86.364 kg, Total Volume: 1,000, 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/22 16:13:00 JACKET PREPARER, Duration: 30 day, Stop date: 12/21/22 16:12:00 CDT, BSA: 1.93 m2, 0 normal 2023-0 No 1,000 mL, Memori a saline 0.9% 2-21 Rate: 75 l IV 1,000 mL 22:13: ml/hr, Herm bernie 00 Infuse over: 13.3 hr, Route: IV, Dosing Weight 86.364 kg, Total Volume: 1,000, 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/22 16:13:00 JACKET PREPARER, Duration: 30 day, Stop date: 12/21/22 16:12:00 CDT, BSA: 1.93 m2, 0 normal 2022-0 No 1,000 mL, Memori a saline 0.9% 2-21 Rate: 75 l IV 1,000 mL 22:13: ml/hr, Herm bernie 00 Infuse over: 13.3 hr, Route: IV, Dosing Weight 86.364 kg, Total Volume: 1,000, 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/22 16:13:00 JACKET PREPARER, Duration: 30 day, Stop date: 12/21/22 16:12:00 CDT, BSA: 1.93 m2, 0 normal 2022-0 No 1,000 mL, Memori a saline 0.9% 2-21 Rate: 75 l IV 1,000 mL 22:13: ml/hr, Herm bernie 00 Infuse over: 13.3 hr, Route: IV, Dosing Weight 86.364 kg, Total Volume: 1,000, 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/22 16:13:00 JACKET PREPARER, Duration: 30 day, Stop date: 12/21/22 16:12:00 CDT, BSA: 1.93 m2, 0 Vitamin D2 Yes 50,000 Memor ia 50,000 intl 2-21 IntlUnit = l units (1.25 18:29: 1 cap, PO, [place] mg) oral 00 qWeek, capsule then 1 cap qmonth, 0 Refill(s) Voltaren 0 Yes 2 gm, TOP, Mem oria Topical 1% 2-21 QID, PRN, l topical gel 18:29: 0 Ajay n 00 Refill(s) Vitamin D2 0 Yes 50,000 Memor ia 50,000 intl 2-21 IntlUnit = l units (1.25 18:29: 1 cap, PO, [place] mg) oral 00 qWeek, capsule then 1 [...] l units (1.25 18:29: 1 cap, PO, [place] mg) oral 00 qWeek, capsule then 1 cap qmonth, 0 Refill(s) Voltaren 0 Yes 2 gm, TOP, Mem oria Topical 1% 2-21 QID, PRN, l topical gel 18:29: 0 Ajay n 00 Refill(s) Vitamin D2 Yes 50,000 Memor ia 50,000 intl 2-21 IntlUnit = l units (1.25 18:29: 1 cap, PO, [place] mg) oral 00 qWeek, capsule then 1 [...] l units (1.25 18:29: 1 cap, PO, [place] mg) oral 00 qWeek, capsule then 1 cap qmonth, 0 Refill(s) Voltaren 0 Yes 2 gm, TOP, Mem oria Topical 1% 2-21 QID, PRN, l topical gel 18:29: 0 Ajay n 00 Refill(s) Vitamin D2 0 Yes 50,000 Memor ia 50,000 intl 2-21 IntlUnit = l units (1.25 18:29: 1 cap, PO, [place] mg) oral 00 qWeek, capsule then 1 [...] l units (1.25 18:29: 1 cap, PO, [place] mg) oral 00 qWeek, capsule then 1 cap qmonth, 0 Refill(s) fluocinonid 0 Yes 1 appl, Mem oria e topical 2-21 TOP, BID, l 0.05% 18:28: 0 Raul solution 00 Refill(s) ketoconazol 0 Yes 1 appl, Mem oria e topical 2-21 TOP, BID, l 2% cream 18:28: 0 [place] 00 Refill(s) halobetasol 0 Yes 1 appl, Mem oria topical 2-21 TOP, BID, l 0.05% cream 18:28: PRN, 0 Herm bernie 00 Refill(s) fluocinonid 0 Yes 1 appl, [facility] e topical 2-21 TOP, BID, l 0.05% 18:28: 0 [facility] solution 00 Refill(s) ketoconazol 0 Yes 1 appl, [facility] e topical 2-21 TOP, BID, l 2% cream 18:28: 0 [facility] 00 Refill(s) halobetasol 2022-0 Yes 1 appl, [facility] topical 2-21 TOP, BID, l 0.05% cream 18:28: PRN, 0 Herm bernie 00 Refill(s) fluocinonid 2023-0 Yes 1 appl, [facility] e topical 2-21 TOP, BID, l 0.05% 18:28: 0 Raul solution 00 Refill(s) ketoconazol 2023-0 Yes 1 appl, [facility] e topical 2-21 TOP, BID, l 2% cream 18:28: 0 [facility] 00 Refill(s) halobetasol 2023-0 Yes 1 appl, [...] 18:28: 0 Raul solution 00 Refill(s) ketoconazol 3-0 Yes 1 appl, Mem [facility] e topical 2-21 TOP, BID, l 2% cream 18:28: 0 [facility] 00 Refill(s) halobetasol 2023-0 Yes 1 appl, [facility] topical 2-21 TOP, BID, l 0.05% cream 18:28: PRN, 0 Herm bernie 00 Refill(s) fluocinonid 2023-0 Yes 1 appl, [facility] e topical 2-21 TOP, BID, l 0.05% 18:28: 0 [facility] solution 00 Refill(s) ketoconazol 2023-0 Yes 1 appl, [facility] e topical 2-21 TOP, BID, l 2% cream 18:28: 0 Raul 00 Refill(s) halobetasol 2023-0 Yes 1 appl, [facility] topical 2-21 TOP, BID, l 0.05% cream 18:28: PRN, 0 Herm bernie 00 Refill(s) fluocinonid 3-0 Yes 1 appl, [facility] e topical 2-21 TOP, BID, l 0.05% 18:28: 0 [facility] solution 00 Refill(s) ketoconazol 2022-0 Yes 1 [...] 2-21 TOP, BID, l 0.05% 18:28: 0 [facility] solution 00 Refill(s) ketoconazol 2022-0 Yes 1 appl, [facility] e topical 2-21 TOP, BID, l 2% cream 18:28: 0 [facility] 00 Refill(s) halobetasol 2022-0 Yes 1 appl, [...] 2-21 tab, PO, l 18:27: Daily, 0 [facility] 00 Refill(s) Pepcid 40 2022-0 Yes 40 [...] 2-21 tab, PO, l 18:27: Daily, 0 [facility] 00 Refill(s) Pepcid 40 2022-0 Yes 40 [...] 2-21 tab, PO, l 18:27: Daily, 0 [facility] 00 Refill(s) Pepcid 40 2022-0 Yes 40 [...] Yes 325 mg = 1 Jose Francisco zhagn sulfate 325 2-21 tab, PO, l mg [...] 2-21 tab, PO, l 18:27: Daily, 0 [facility] 00 Refill(s) Pepcid 40 2022-0 Yes 40 [...] n enteric 00 Refill(s) coated tablet donepezil 2022-0 Yes 10 mg = 1 [facility] 10 mg oral 2-21 tab, PO, l tablet 18:26: Daily, 0 [facility] 00 Refill(s) NIFEdipine 2022-0 Yes 30 mg = 1 Me moria (Eqv-Procar 2-21 tab, PO, l afua XL) 30 18:26: Daily, 0 Her ivory mg oral 00 Refill(s) tablet, extended release Kerendia 10 Yes 10 mg = 1 M emoria mg oral 2-21 tab, PO, l tablet 18:26: Daily, 0 [facility] 00 Refill(s) lovastatin 2022-0 Yes 20 mg = 1 Me moria 20 mg oral 2-21 tab, PO, l tablet 18:26: Daily, 0 Raul 00 Refill(s) donepezil 2022-0 Yes 10 mg = 1 [facility] 10 mg oral 2-21 tab, PO, l tablet 18:26: Daily, 0 [facility] 00 Refill(s) NIFEdipine 2022-0 Yes 30 mg = 1 Me moria (Eqv-Procar 2-21 tab, PO, l afua XL) 30 18:26: Daily, 0 Her ivory mg oral 00 Refill(s) tablet, extended release Kerendia 10 Yes 10 mg = 1 M emoria mg oral 2-21 tab, PO, l tablet 18:26: Daily, 0 [facility] 00 Refill(s) lovastatin 2022-0 Yes 20 mg = 1 Me moria 20 mg oral 2-21 tab, PO, l tablet 18:26: Daily, 0 [facility] 00 Refill(s) donepezil 2022-0 Yes 10 mg = 1 Mem o[facility] 10 mg oral 2-21 tab, PO, l tablet 18:26: Daily, 0 [facility] 00 Refill(s) NIFEdipine 2022-0 Yes 30 mg = 1 Me moria (Eqv-Procar 2-21 tab, PO, l afua XL) 30 18:26: Daily, 0 Her ivory mg oral 00 Refill(s) tablet, extended release Kerendia 10 0 Yes 10 mg = 1 M emoria mg oral 2-21 tab, PO, l tablet 18:26: Daily, 0 [facility] 00 Refill(s) lovastatin 2022-0 Yes 20 mg [...] tab, PO, l tablet 18:26: Daily, 0 [facility] 00 Refill(s) lovastatin 2022-0 Yes 20 mg [...] tab, PO, l tablet 18:26: Daily, 0 [place] 00 Refill(s) donepezil 2022-0 Yes 10 mg [...] tab, PO, l tablet 18:26: Daily, 0 [place] 00 Refill(s) NIFEdipine 2022-0 Yes 30 mg = 1 Me moria (Eqv-Procar 2-21 tab, PO, l afua XL) 30 18:26: Daily, 0 Her ivory mg oral 00 Refill(s) tablet, extended release Kerendia 10 0 Yes 10 mg = 1 M emoria mg oral 2-21 tab, PO, l tablet 18:26: Daily, 0 [place] 00 Refill(s) lovastatin 2022-0 Yes 20 mg [...] tab, PO, l tablet 18:26: Daily, 0 [place] 00 Refill(s) lovastatin 2022-0 Yes 20 mg = 1 Me moria 20 mg oral 2-21 tab, PO, l tablet 18:26: Daily, 0 Raul 00 Refill(s) Coreg 25 mg 2023-0 Yes 25 mg = 1 M emoria oral tablet 2-21 tab, PO, l 18:25: BID, 0 Raul 00 Refill(s) Lexapro 20 2023-0 Yes 20 mg = 1 Me moria mg oral 2-21 tab, PO, l tablet 18:25: BID, 0 [place] 00 Refill(s) rOPINIRole 2023-0 Yes 4 mg = 1 Mem oria 4 mg oral 2-21 tab, PO, l tablet 18:25: BID, 0 Raul 00 Refill(s) Coreg 25 mg 2023-0 Yes 25 mg = 1 M emoria oral tablet 2-21 tab, PO, l 18:25: BID, 0 Raul 00 Refill(s) Lexapro 20 2023-0 Yes 20 mg = 1 Me moria mg oral 2-21 tab, PO, l tablet 18:25: BID, 0 [place] 00 Refill(s) rOPINIRole 2023-0 Yes 4 mg = 1 Mem oria 4 mg oral 2-21 tab, PO, l tablet 18:25: BID, 0 [place] 00 Refill(s) Coreg 25 mg 3-0 Yes 25 mg = 1 M emoria oral tablet 2-21 tab, PO, l 18:25: BID, 0 [place] 00 Refill(s) Lexapro 20 2023-0 Yes 20 mg = 1 Me moria mg oral 2-21 tab, PO, l tablet 18:25: BID, 0 [place] 00 Refill(s) rOPINIRole 2023-0 Yes 4 mg = 1 Mem oria 4 mg oral 2-21 tab, PO, l tablet 18:25: BID, 0 [place] 00 Refill(s) Coreg 25 mg 2023-0 Yes 25 mg = 1 M emoria oral tablet 2-21 tab, PO, l 18:25: BID, 0 Rual 00 Refill(s) Lexapro 20 2023-0 Yes 20 mg = 1 Me moria mg oral 2-21 tab, PO, l tablet 18:25: BID, 0 [place] 00 Refill(s) rOPINIRole 2023-0 Yes 4 mg = 1 Mem oria 4 mg oral 2-21 tab, PO, l tablet 18:25: BID, 0 [place] 00 Refill(s) Coreg 25 mg 2023-0 Yes 25 mg = 1 M emoria oral tablet 2-21 tab, PO, l 18:25: BID, 0 [place] 00 Refill(s) Lexapro 20 2023-0 Yes 20 mg = 1 Me moria mg oral 2-21 tab, PO, l tablet 18:25: BID, 0 Raul 00 Refill(s) rOPINIRole 2023-0 Yes 4 mg = 1 Mem oria 4 mg oral 2-21 tab, PO, l tablet 18:25: BID, 0 [place] 00 Refill(s) Coreg 25 mg 2023-0 Yes [...] tab, PO, l tablet 18:25: BID, 0 [place] 00 Refill(s) Coreg 25 mg 2023-0 Yes 25 mg = 1 M emoria oral tablet 2-21 tab, PO, l 18:25: BID, 0 Raul 00 Refill(s) Lexapro 20 2023-0 Yes 20 mg = 1 Me moria mg oral 2-21 tab, PO, l tablet 18:25: BID, 0 [place] 00 Refill(s) rOPINIRole 2023-0 Yes 4 mg = 1 Mem oria 4 mg oral 2-21 tab, PO, l tablet 18:25: BID, 0 [place] 00 Refill(s) Coreg 25 mg 2023-0 Yes 25 mg = 1 M emoria oral tablet 2-21 tab, PO, l 18:25: BID, 0 [place] 00 Refill(s) Lexapro 20 2023-0 Yes 20 mg = 1 Me moria mg oral 2-21 tab, PO, l tablet 18:25: BID, 0 Raul 00 Refill(s) rOPINIRole 2023-0 Yes 4 mg = 1 Mem o[facility] 4 mg oral 2-21 tab, PO, l tablet 18:25: BID, 0 [place] 00 Refill(s) Coreg 25 mg 2023-0 Yes 25 mg = 1 M emoria oral tablet 2-21 tab, PO, l 18:25: BID, 0 [place] 00 Refill(s) Lexapro 20 2023-0 Yes 20 mg = 1 Me moria mg oral 2-21 tab, PO, l tablet 18:25: BID, 0 Raul 00 Refill(s) rOPINIRole 2023-0 Yes 4 mg = 1 Mem o[facility] 4 mg oral 2-21 tab, PO, l tablet 18:25: BID, 0 [place] 00 Refill(s) pantoprazol 2023-0 Yes 40 mg = 1 M emoria e 40 mg 2-21 tab, PO, l oral 18:24: BID, 0 [place] enteric 00 Refill(s) coated tablet pantoprazol 2023-0 [...] tab, PO, l oral 18:24: BID, 0 [place] enteric 00 Refill(s) coated tablet pantoprazol 2023-0 Yes 40 mg = 1 M emoria e 40 mg 2-21 tab, PO, l oral 18:24: BID, 0 [place] enteric 00 Refill(s) coated tablet pantoprazol 2023-0 Yes 40 mg = 1 M emoria e 40 mg 2-21 tab, PO, l oral 18:24: BID, 0 [place] enteric 00 Refill(s) coated tablet pantoprazol 2023-0 Yes 40 mg = 1 M emoria e 40 mg 2-21 tab, PO, l oral 18:24: BID, 0 [place] enteric 00 Refill(s) coated tablet pantoprazol 2023-0 [...] am 2-21 Same as l 15:00: Keppra [place] 00 MEDICATION WASTE Product Size: 500 mg Product Wasted: ___ mg docusate No Notes: Memoria 2-21 (Same as: l 15:00: Colace) [place] 00 (Do Not Crush) senna No Notes: Memoria 2-21 (Same as: l 15:00: Senokot) [place] 00 lidocaine No Notes: Memori a topical [...] Memoria 2-21 (Same as: l 15:00: Colace) [place] 00 (Do Not Crush) senna No Notes: Memoria 2-21 (Same as: l 15:00: Senokot) Raul 00 lidocaine No Notes: Memori a topical 2-21 Patch is l 15:00: applied to [place] 00 intact skin to cover painful area for up to 12 hours in a 24-hour period (12 hours on and 12 hours off). Please indicate the location of applicatio n site. Site 1: Remove old patch before applicatio n of new patch. (Same as Aspercreme Lidocaine Patch) Saline No Notes: [facility] Flush 0.9% 2-21 (Same as: l 15:00: BD [place] 00 Posiflush) levETIRAcet No Notes: Jose Francisco zhang am 2-21 Same as l 15:00: Keppra [place] 00 MEDICATION WASTE Product Size: 500 mg Product Wasted: ___ mg docusate No Notes: Memoria 2-21 (Same as: l 15:00: Colace) [place] 00 (Do Not Crush) senna No Notes: Memoria 2-21 (Same as: l 15:00: Senokot) [place] 00 lidocaine No Notes: Memori a topical 2-21 Patch is l 15:00: applied to [place] 00 intact skin to cover painful area [...] 2-21 Patch is l 15:00: applied to [place] 00 intact skin to cover painful area for up to 12 hours in a 24-hour period (12 hours on and 12 hours off). Please indicate the location of applicatio n site. Site 1: Remove old patch before applicatio n of new patch. (Same as Aspercreme Lidocaine Patch) Saline No Notes: [facility] Flush 0.9% 2-21 (Same as: l 15:00: BD [place] 00 Posiflush) levETIRAcet No Notes: Jose Francisco zhang am 2-21 Same as l 15:00: Keppra [place] 00 MEDICATION WASTE Product Size: 500 mg Product Wasted: ___ mg docusate No Notes: [facility]oria 2-21 (Same as: l 15:00: Colace) [place] 00 (Do Not Crush) senna No Notes: [facility]oria 2-21 (Same as: l 15:00: Senokot) [place] 00 lidocaine No Notes: Memori a topical [...] 0.9% 2-21 (Same as: l 15:00: BD [place] 00 Posiflush) levETIRAcet No Notes: Jose Francisco zhang am 2-21 Same as l 15:00: Keppra [place] 00 MEDICATION WASTE Product Size: 500 mg Product Wasted: ___ mg docusate No Notes: Memoria 2-21 (Same as: l 15:00: Colace) [place] 00 (Do Not Crush) senna No Notes: [...] 0.9% 2-21 (Same as: l 15:00: BD [place] 00 Posiflush) levETIRAcet No Notes: Jose Francisco zhang am 2- Same as l 15:00: Keppra MEDICATION WASTE Product Size: 500 mg Product Wasted: ___ mg docusate No Notes: [facility]oria 2-21 (Same as: l 15:00: Colace) (Do Not Crush) senna No Notes: [facility]oria 2-21 (Same as: l 15:00: Senokot) [place] 00 lidocaine No Notes: Memori a topical [...] Sodium No 1,000 mL, Memori a Chloride -21 Rate: 50 l 0.9% IV 14:47: ml/hr, [place] 1,000 mL 00 Infuse over: 20 hr, Route: IV, Dosing Weight 86.364 kg, Total Volume: 1,000, 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/22 8:47:00 JACKET PREPARER, Duration: 30 day, Stop date: 12/21/22 8:46:00 CDT, BSA: 1.93 m2, 0 acetaminoph No Notes: Do M emoria en 2-21 not exceed l 14:47: 4 gm/day. [place] 00 (Same as: Tylenol) bisacodyl No Notes: [...] Weight 86.364, kg, 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/22 8:47:00 JACKET PREPARER, Duration: 3 doses or times, Stop date: 11/21/22 9:17:00 JACKET PREPARER, 0 Saline No Notes: [facility] Flush 0.9% 2-21 (Same as: l 14:47: BD Posiflush) Sodium No 1,000 mL, Memori a Chloride 2-21 Rate: 50 l 0.9% IV 14:47: ml/hr, Raul 1,000 mL 00 Infuse over: 20 hr, Route: IV, Dosing Weight 86.364 kg, Total Volume: 1,000, 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/22 8:47:00 JACKET PREPARER, Duration: 30 day, Stop date: 12/21/22 8:46:00 [...] Weight 86.364, kg, 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/22 8:47:00 JACKET PREPARER, Duration: 3 doses or times, Stop date: 11/21/22 9:17:00 JACKET PREPARER, 0 Saline No Notes: Memoria Flush 0.9% 2-21 (Same as: l 14:47: BD [place] 00 Posiflush) Sodium No 1,000 mL, Memori a Chloride 2-21 Rate: 50 l 0.9% IV 14:47: ml/hr, Raul 1,000 mL 00 Infuse over: 20 hr, Route: IV, Dosing Weight 86.364 kg, Total Volume: 1,000, 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/22 8:47:00 JACKET PREPARER, Duration: 30 day, Stop date: 12/21/22 8:46:00 CDT, BSA: 1.93 m2, 0 acetaminoph No Notes: Do M emoria en 2-21 not exceed l 14:47: 4 gm/day. (Same as: Tylenol) bisacodyl No Notes: Memori a 2-21 (Same As: l 14:47: Dulcolax, [place] 00 Bisco-Lax) ondansetron No Notes: Jose Francisco [...] Weight 86.364, kg, 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/22 8:47:00 JACKET PREPARER, Duration: 3 doses or times, Stop date: 11/21/22 9:17:00 JACKET PREPARER, 0 Saline No Notes: Memoria Flush 0.9% 2-21 (Same as: l 14:47: BD Raul Posiflush) Sodium No 1,000 mL, Memori a Chloride 2-21 Rate: 50 l 0.9% IV 14:47: ml/hr, [place] 1,000 mL 00 Infuse over: 20 hr, Route: IV, Dosing Weight 86.364 kg, Total Volume: 1,000, 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/22 8:47:00 JACKET PREPARER, Duration: 30 day, Stop date: 12/21/22 8:46:00 CDT, BSA: 1.93 m2, 0 acetaminoph No Notes: Do M emoria en 2-21 not exceed l 14:47: 4 gm/day. Raul 00 (Same as: Tylenol) [...] Weight 86.364, kg, 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/22 8:47:00 JACKET PREPARER, Duration: 3 doses or times, Stop date: 11/21/22 9:17:00 JACKET PREPARER, 0 Saline No Notes: Memoria Flush 0.9% 2-21 (Same as: l 14:47: BD Posiflush) Sodium No 1,000 mL, Memori a Chloride 2-21 Rate: 50 l 0.9% IV 14:47: ml/hr, Raul 1,000 mL 00 Infuse over: 20 hr, Route: IV, Dosing Weight 86.364 kg, Total Volume: 1,000, 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/22 8:47:00 JACKET PREPARER, Duration: 30 day, Stop date: 12/21/22 8:46:00 CDT, BSA: 1.93 m2, 0 acetaminoph No Notes: Do M emoria en 2-21 not exceed l 14:47: 4 gm/day. Raul 00 (Same as: Tylenol) bisacodyl No Notes: Memori a 2-21 (Same As: l 14:47: Dulcolax, [place] 00 Bisco-Lax) ondansetron No Notes: Jose Francisco [...] Weight 86.364, kg, 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/22 8:47:00 JACKET PREPARER, Duration: 3 doses or times, Stop date: 11/21/22 9:17:00 JACKET PREPARER, 0 Saline No Notes: Memoria Flush 0.9% 2-21 (Same as: l 14:47: BD Posiflush) Sodium No 1,000 mL, Memori a Chloride 2-21 Rate: 50 l 0.9% IV 14:47: ml/hr, Raul 1,000 mL 00 Infuse over: 20 hr, Route: IV, Dosing Weight 86.364 kg, Total Volume: 1,000, 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/22 8:47:00 JACKET PREPARER, Duration: 30 day, Stop date: 12/21/22 8:46:00 CDT, BSA: 1.93 m2, 0 acetaminoph No Notes: Do M emoria en 2-21 not exceed l 14:47: 4 gm/day. [place] 00 (Same as: Tylenol) bisacodyl No Notes: [...] Weight 86.364, kg, 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/22 8:47:00 JACKET PREPARER, Duration: 3 doses or times, Stop date: 11/21/22 9:17:00 JACKET PREPARER, 0 Saline No Notes: Memoria Flush 0.9% 2-21 (Same as: l 14:47: BD Posiflush) Sodium No 1,000 mL, Memori a Chloride 2-21 Rate: 50 l 0.9% IV 14:47: ml/hr, Raul 1,000 mL 00 Infuse over: 20 hr, Route: IV, Dosing Weight 86.364 kg, Total Volume: 1,000, 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/22 8:47:00 JACKET PREPARER, Duration: 30 day, Stop date: 12/21/22 8:46:00 [...] Weight 86.364, kg, 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/22 8:47:00 JACKET PREPARER, Duration: 3 doses or times, Stop date: 11/21/22 9:17:00 JACKET PREPARER, 0 Saline 2023-0 No Notes: Memoria Flush 0.9% 2-21 (Same as: l 14:47: BD Posiflush) Tylenol 2023-0 No 1,000 mg, Memor ia 2-21 Route: PO, l 14:03: ONCE, Dosing Weight 86.364, kg, 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/22 8:03:00 JACKET PREPARER, Stop date: 11/21/22 8:03:00 JACKET PREPARER Tylenol 2023-0 No 1,000 mg, Memor ia 2-21 Route: PO, l 14:03: ONCE, Dosing Weight 86.364, kg, 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/22 8:03:00 JACKET PREPARER, Stop date: 11/21/22 8:03:00 JACKET PREPARER Tylenol 2023-0 No 1,000 mg, Memor ia 2-21 Route: PO, l 14:03: ONCE, Dosing Weight 86.364, kg, 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/22 8:03:00 JACKET PREPARER, Stop date: 11/21/22 8:03:00 JACKET PREPARER Tylenol 2023-0 No 1,000 mg, Memor ia 2-21 Route: PO, l 14:03: ONCE, Dosing Weight 86.364, kg, 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/22 8:03:00 JACKET PREPARER, Stop date: 11/21/22 8:03:00 JACKET PREPARER Tylenol 2023-0 No 1,000 mg, Memor ia 2-21 Route: PO, l 14:03: ONCE, Dosing Weight 86.364, kg, 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/22 8:03:00 JACKET PREPARER, Stop date: 11/21/22 8:03:00 JACKET PREPARER Tylenol 2023-0 No 1,000 mg, Memor ia 2-21 Route: PO, l 14:03: ONCE, Dosing Weight 86.364, kg, 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/22 8:03:00 JACKET PREPARER, Stop date: 11/21/22 8:03:00 JACKET PREPARER Tylenol No 1,000 mg, Memor ia 21 Route: PO, l 14:03: ONCE, Dosing Weight 86.364, kg, 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/22 8:03:00 JACKET PREPARER, Stop date: 11/21/22 8:03:00 JACKET PREPARER Saline No Notes: Memoria Flush 0.9% 2-21 (Same as: l 12:05: BD Raul 00 Posiflush) Saline No Notes: Memoria Flush 0.9% 2-21 (Same as: l 12:05: BD Raul Posiflush) Saline No Notes: Memoria Flush 0.9% 2-21 (Same as: l 12:05: BD Raul 00 Posiflush) Saline No Notes: Memoria Flush 0.9% 2-21 (Same as: l 12:05: BD [place] Posiflush) Saline No Notes: Memoria Flush 0.9% 2-21 (Same as: l 12:05: BD Raul Posiflush) Saline No Notes: Memoria Flush 0.9% 2-21 (Same as: l 12:05: BD Raul Posiflush) Saline No Notes: Memoria Flush 0.9% 2-21 (Same as: l 12:05: BD Raul 00 Posiflush) albuterol 2021-10 No 5mg 5 mg, [facility] ([facility]) 10-05 Inhalation i ty of 2.5 mg /3 18:15: 17:40 , ONCE, [place] (0.083 00 :00 dose, On Medica l %) Sat [place] nebulizer 08/05/22 at solution 5 1315, DIMITRIS mg primidone Yes 50 mg = 1 Mem oria 50 mg oral 2-02 tab, PO, l tablet 20:46: Bedtime, # Jessie nn 00 90 tab, 2 Refill(s), Pharmacy: [facility] #[id number], 149.86, cm, 11/02/21 14:32:00 JACKET PREPARER, Height, 90.455, kg, 11/02/21 14:32:00 JACKET PREPARER, Weight primidone 2022-0 Yes 50 mg = 1 Mem oria 50 mg oral 2-02 tab, PO, l tablet 20:46: Bedtime, # Jessie nn 00 90 tab, 2 Refill(s), Pharmacy: [facility] #[id number], 149.86, cm, 11/02/21 14:32:00 JACKET PREPARER, Height, 90.455, kg, 11/02/21 14:32:00 JACKET PREPARER, Weight primidone 2022-0 Yes 50 mg = 1 Mem oria 50 mg oral 2-02 tab, PO, l tablet 20:46: Bedtime, # Jessie nn 00 90 tab, 2 Refill(s), Pharmacy: [facility] #[id number], 149.86, cm, 11/02/21 14:32:00 JACKET PREPARER, Height, 90.455, kg, 11/02/21 14:32:00 JACKET PREPARER, Weight primidone 2022-0 Yes 50 mg = 1 Mem oria 50 mg oral 2-02 tab, PO, l tablet 20:46: Bedtime, # Jessie nn 00 90 tab, 2 Refill(s), Pharmacy: [facility] #[id number], 149.86, cm, 11/02/21 14:32:00 JACKET PREPARER, Height, 90.455, kg, 11/02/21 14:32:00 JACKET PREPARER, Weight primidone 2022-0 Yes 50 mg = 1 Mem oria 50 mg oral 2-02 tab, PO, l tablet 20:46: Bedtime, # Jessie nn 00 90 tab, 2 Refill(s), Pharmacy: [facility] #[id number], 149.86, cm, 11/02/21 14:32:00 JACKET PREPARER, Height, 90.455, kg, 11/02/21 14:32:00 JACKET PREPARER, Weight primidone 2022-0 Yes 50 mg = 1 Mem oria 50 mg oral 2-02 tab, PO, l tablet 20:46: Bedtime, # Jessie nn 00 90 tab, 2 Refill(s), Pharmacy: [facility] #[id number], 149.86, cm, 11/02/21 14:32:00 JACKET PREPARER, Height, 90.455, kg, 11/02/21 14:32:00 JACKET PREPARER, Weight primidone 2021-0 Yes 50 mg = 1 Mem oria 50 mg oral 2-02 tab, PO, l tablet 20:46: Bedtime, # Jessie nn 00 90 tab, 2 Refill(s), Pharmacy: [facility] #[id number], 149.86, cm, 11/02/21 14:32:00 JACKET PREPARER, Height, 90.455, kg, 11/02/21 14:32:00 JACKET PREPARER, Weight primidone 2-0 Yes 50 mg = 1 Mem oria 50 mg oral 2-02 tab, PO, l tablet 20:46: Bedtime, # Jessie nn 00 90 tab, 2 Refill(s), Pharmacy: [facility] #[id number], 149.86, cm, 11/02/21 14:32:00 JACKET PREPARER, Height, 90.455, kg, 11/02/21 14:32:00 JACKET PREPARER, Weight primidone 2021-0 Yes 50 mg = 1 Mem oria 50 mg oral 2-02 tab, PO, l tablet 20:46: Bedtime, # Jessie nn 00 90 tab, 2 Refill(s), Pharmacy: [facility] #[id number], 149.86, cm, 11/02/21 14:32:00 JACKET PREPARER, Height, 90.455, kg, 11/02/21 14:32:00 JACKET PREPARER, Weight primidone 2021-0 Yes 50 mg = 1 Mem oria 50 mg oral 2-02 tab, PO, l tablet 20:46: Bedtime, # Jessie nn 00 90 tab, 2 Refill(s), Pharmacy: [facility] #[id number], 149.86, cm, 11/02/21 14:32:00 JACKET PREPARER, Height, 90.455, kg, 11/02/21 14:32:00 JACKET PREPARER, Weight primidone 2-0 Yes 50 mg = 1 Mem oria 50 mg oral 2-02 tab, PO, l tablet 20:46: Bedtime, # Jessie nn 00 90 tab, 2 Refill(s), Pharmacy: [facility] #[id number], 149.86, cm, 11/02/21 14:32:00 JACKET PREPARER, Height, 90.455, kg, 11/02/21 14:32:00 JACKET PREPARER, Weight primidone Yes 50 mg = 1 Mem oria 50 mg oral 2-02 tab, PO, l tablet 20:46: Bedtime, # Jessie nn 00 90 tab, 2 Refill(s), Pharmacy: [facility] #[id number], 149.86, cm, 11/02/21 14:32:00 JACKET PREPARER, Height, 90.455, kg, 11/02/21 14:32:00 JACKET PREPARER, Weight primidone Yes 50 mg = 1 Mem oria 50 mg oral 2-02 tab, PO, l tablet 20:46: Bedtime, # Jessie nn 00 90 tab, 2 Refill(s), Pharmacy: [facility] #[id number], 149.86, cm, 11/02/21 14:32:00 JACKET PREPARER, Height, 90.455, kg, 11/02/21 14:32:00 JACKET PREPARER, Weight primidone Yes 50 mg = 1 Mem oria 50 mg oral 2-02 tab, PO, l tablet 20:46: Bedtime, # Jessie nn 00 90 tab, 2 Refill(s), Pharmacy: [facility] #[id number], 149.86, cm, 11/02/21 14:32:00 JACKET PREPARER, Height, 90.455, kg, 11/02/21 14:32:00 JACKET PREPARER, Weight NIFEdipine Yes TAKE 1 Memor ia (Eqv-Adalat 2-02 TABLET BY l CC) 30 mg 20:38: MOUTH [place] oral 00 EVERY DAY tablet, ON EMPTY extended STOMACH release FOR 30 DAYS Furosemide Yes TAKE 1 Memor ia 40 MG Oral 2-02 TABLET BY l Tablet 20:38: MOUTH Raul 00 EVERY DAY NEEDED FOR SWELLING tramadol Yes TAKE 1 Memoria hydrochlori 2-02 TABLET BY l de 50 MG 20:38: MOUTH [place] Oral Tablet 00 EVERY 6 TO 8 [...] TABLET BY l oral 20:38: MOUTH 2 [place] enteric 00 TIMES coated DAILY HALF tablet [...] 2-02 TABLET BY l Tablet 20:38: MOUTH [place] 00 EVERY DAY NEEDED FOR SWELLING tramadol Yes TAKE 1 Memoria hydrochlori 2-02 TABLET BY l de 50 MG 20:38: MOUTH [place] Oral Tablet 00 EVERY 6 TO 8 [...] BY l CC) 30 mg 20:38: MOUTH [place] oral 00 EVERY DAY tablet, ON EMPTY [...] 2-02 TABLET BY l tablet 20:38: MOUTH [place] 00 EVERY DAY FOR 90 DAYS doxycycline [...] TABLET BY l oral 20:38: MOUTH 2 [place] enteric 00 TIMES coated DAILY HALF tablet HOUR BEFORE BREAKFAST OR FIRST MEAL oxybutynin Yes TAKE 1 Memor ia 5 mg oral 2-02 TABLET BY l tablet 20:38: MOUTH [place] 00 THREE TIMES A DAY NIFEdipine Yes [...] CAPSULE BY l MG Oral 20:38: MOUTH [place] Capsule 00 TWICE A DAY Colestipol Yes TAKE 1 Memor ia Hydrochlori 2-02 TABLET BY l de 1000 MG 20:38: MOUTH Ajay n Oral Tablet 00 TWICE A DAY pantoprazol Yes TAKE 1 Jose Francisco zhang e 40 mg 2-02 TABLET BY l oral 20:38: MOUTH 2 [place] enteric 00 TIMES coated DAILY HALF tablet HOUR BEFORE BREAKFAST OR FIRST MEAL oxybutynin Yes TAKE 1 Memor ia 5 mg oral 2-02 TABLET BY l tablet 20:38: MOUTH [place] 00 THREE TIMES A DAY NIFEdipine Yes TAKE 1 Memor ia (Eqv-Adalat 2-02 TABLET BY l CC) 30 mg 20:38: MOUTH [place] oral 00 EVERY DAY tablet, ON EMPTY extended STOMACH release FOR 30 DAYS Furosemide Yes TAKE 1 Memor ia 40 MG Oral 2-02 TABLET BY l Tablet 20:38: MOUTH [place] 00 EVERY DAY NEEDED FOR SWELLING tramadol Yes TAKE 1 Memoria hydrochlori 2-02 TABLET BY l de 50 MG 20:38: MOUTH [place] Oral Tablet 00 EVERY 6 TO 8 [...] BY l CC) 30 mg 20:38: MOUTH [place] oral 00 EVERY DAY tablet, ON EMPTY extended STOMACH release FOR 30 DAYS Furosemide Yes TAKE 1 Memor ia 40 MG Oral 2-02 TABLET BY l Tablet 20:38: MOUTH [place] 00 EVERY DAY NEEDED FOR SWELLING tramadol [...] CAPSULE BY l MG Oral 20:38: MOUTH [place] Capsule 00 TWICE A DAY Colestipol Yes TAKE 1 Memor ia Hydrochlori 2-02 TABLET BY l de 1000 MG 20:38: MOUTH Ajya n Oral Tablet 00 TWICE A DAY pantoprazol Yes TAKE 1 Jose Francisco zhang e 40 mg 2-02 TABLET BY l oral 20:38: MOUTH 2 [place] enteric 00 TIMES coated DAILY HALF tablet HOUR BEFORE BREAKFAST OR FIRST MEAL oxybutynin Yes TAKE 1 Memor ia 5 mg oral 2-02 TABLET BY l tablet 20:38: MOUTH [place] 00 THREE TIMES A DAY NIFEdipine Yes [...] CAPSULE BY l MG Oral 20:38: MOUTH [place] Capsule 00 TWICE A DAY Colestipol Yes TAKE 1 Memor ia Hydrochlori 2-02 TABLET BY l de 1000 MG 20:38: MOUTH Ajay n Oral Tablet 00 TWICE A DAY pantoprazol Yes TAKE 1 Jose Francisco zhang e 40 mg 2-02 TABLET BY l oral 20:38: MOUTH 2 [place] enteric 00 TIMES coated DAILY HALF tablet HOUR BEFORE BREAKFAST OR FIRST MEAL oxybutynin Yes TAKE 1 Memor ia 5 mg oral 2-02 TABLET BY l tablet 20:38: MOUTH [place] 00 THREE TIMES A DAY NIFEdipine Yes TAKE 1 Memor ia (Eqv-Adalat 2-02 TABLET BY l CC) 30 mg 20:38: MOUTH Raul oral 00 EVERY DAY tablet, ON EMPTY extended STOMACH release FOR 30 DAYS Furosemide Yes TAKE 1 Memor ia 40 MG Oral 2-02 TABLET BY l Tablet 20:38: MOUTH [place] 00 EVERY DAY NEEDED FOR SWELLING tramadol [...] MOUTH Raul Capsule 00 TWICE A DAY NIFEdipine Yes [...] TABLET BY l oral 20:38: MOUTH 2 [place] enteric 00 TIMES coated DAILY HALF tablet HOUR BEFORE BREAKFAST OR FIRST MEAL oxybutynin Yes TAKE 1 Memor ia 5 mg oral 2-02 TABLET BY l tablet 20:38: MOUTH [place] 00 THREE TIMES A DAY pantoprazol Yes TAKE 1 Jose Francisco zhang e 40 mg 2-02 TABLET BY l oral 20:38: MOUTH 2 Raul enteric 00 TIMES coated DAILY HALF tablet HOUR BEFORE BREAKFAST OR FIRST MEAL oxybutynin Yes TAKE 1 Memor ia 5 mg oral 2-02 TABLET BY l tablet 20:38: MOUTH [place] 00 THREE TIMES A DAY NIFEdipine Yes TAKE 1 Memor ia (Eqv-Adalat 2-02 TABLET BY l CC) 30 mg 20:38: MOUTH Raul oral 00 EVERY DAY tablet, ON EMPTY extended STOMACH release FOR 30 DAYS Furosemide Yes TAKE 1 [facility] 40 MG Oral 2-02 TABLET BY l Tablet 20:38: MOUTH [facility] 00 EVERY DAY NEEDED FOR SWELLING tramadol Yes TAKE 1 [facility] hydrochlori 2-02 TABLET BY l de 50 MG 20:38: MOUTH [facility] Oral Tablet 00 EVERY 6 TO 8 [...] TABLET BY l oral 20:38: MOUTH 2 [facility] 00 TIMES coated DAILY HALF tablet HOUR BEFORE BREAKFAST OR FIRST MEAL oxybutynin Yes TAKE 1 [facility] 5 mg oral 2-02 TABLET BY l tablet 20:38: MOUTH [facility] 00 THREE TIMES A DAY NIFEdipine Yes [...] BY l de 50 MG 20:38: MOUTH [facility] Oral Tablet 00 EVERY 6 TO 8 HOURS NEEDED predniSONE Yes TAKE 1 [facility] 10 mg oral 2-02 TABLET BY l tablet 20:38: MOUTH [facility] 00 EVERY DAY FOR 90 DAYS doxycycline Yes TAKE 1 [facility] zhang hyclate 100 2-02 CAPSULE BY l MG Oral 20:38: MOUTH [facility] Capsule 00 TWICE A DAY Colestipol Yes TAKE 1 [facility] Hydrochlori 2-02 TABLET BY l de 1000 MG 20:38: MOUTH Ajay n Oral Tablet 00 TWICE A DAY pantoprazol Yes TAKE 1 [facility] zhang e 40 mg 2-02 TABLET BY l oral 20:38: MOUTH 2 [facility] enteric 00 TIMES coated DAILY HALF tablet HOUR BEFORE BREAKFAST OR FIRST MEAL oxybutynin Yes TAKE 1 [facility] 5 mg oral 2-02 TABLET BY l tablet 20:38: MOUTH [facility] 00 THREE TIMES A DAY NIFEdipine Yes TAKE 1 [facility] (Eqv-Adalat 2-02 TABLET BY l CC) 30 mg 20:38: MOUTH [facility] oral 00 EVERY DAY tablet, ON EMPTY extended STOMACH release FOR 30 DAYS Furosemide Yes TAKE 1 [facility] 40 MG Oral 2-02 TABLET BY l Tablet 20:38: MOUTH [facility] 00 EVERY DAY NEEDED FOR SWELLING tramadol [...] TABLET BY l oral 20:38: MOUTH 2 [facility] enter[facility] 00 TIMES coated DAILY HALF tablet HOUR BEFORE BREAKFAST OR FIRST MEAL oxybutynin Yes TAKE 1 [facility] 5 mg oral 2-02 TABLET BY l tablet 20:38: MOUTH [facility] 00 THREE TIMES A DAY NIFEdipine Yes TAKE 1 [facility] (Eqv-Adalat 2-02 TABLET BY l CC) 30 mg 20:38: MOUTH [facility] oral 00 EVERY DAY tablet, ON EMPTY extended STOMACH release FOR 30 DAYS Furosemide Yes TAKE 1 [facility] 40 MG Oral 2-02 TABLET BY l Tablet 20:38: MOUTH [facility] 00 EVERY DAY NEEDED FOR SWELLING tramadol Yes TAKE 1 [facility] hydrochlori 2-02 TABLET BY l de 50 MG 20:38: MOUTH [facility] Oral Tablet 00 EVERY 6 TO 8 HOURS NEEDED predniSONE Yes TAKE 1 [facility] 10 mg oral 2-02 TABLET BY l tablet 20:38: MOUTH [facility] 00 EVERY DAY FOR 90 DAYS doxycycline Yes TAKE 1 [facility] zhang hyclate 100 2-02 CAPSULE BY l MG Oral 20:38: MOUTH [facility] Capsule 00 TWICE A DAY Colestipol Yes [...] 2-02 TABLET BY l tablet 20:38: MOUTH [facility] 00 THREE TIMES A DAY NIFEdipine Yes [...] 2-02 TABLET BY l tablet 20:38: MOUTH [facility] 00 EVERY DAY FOR 90 DAYS doxycycline Yes TAKE 1 [facility] Francisco zhang hyclate 100 2-02 CAPSULE BY l MG Oral 20:38: MOUTH [facility] Capsule 00 TWICE A DAY Colestipol Yes TAKE 1 [facility] Hydrochlori 2-02 TABLET BY l de 1000 MG 20:38: MOUTH Ajay n Oral Tablet 00 TWICE A DAY pantoprazol Yes TAKE 1 Jose Francisco zhang e 40 mg 2-02 TABLET BY l oral 20:38: MOUTH 2 [facility] enteric 00 TIMES coated DAILY HALF tablet HOUR BEFORE BREAKFAST OR FIRST MEAL oxybutynin Yes TAKE 1 Memor ia 5 mg oral 2-02 TABLET BY l tablet 20:38: MOUTH [facility] 00 THREE TIMES A DAY donepezil Yes = 1 tab, Jose Francisco zhang 10 mg oral 3-26 PO, Daily, l tablet 19:08: # 90 tab, Ajay n 00 1 Refill(s), Pharmacy: [facility] cy #[id number], 149.86, cm, 12/24/20 13:59:00 CDT, Height, 93.182, kg, 12/24/20 13:59:00 CDT, Weight primidone Yes 50 mg = 1 Mem oria 50 mg oral 3-26 tab, PO, l tablet 19:08: Bedtime, # Jessie nn 00 90 tab, 2 Refill(s), Pharmacy: [facility] cy #[id number], 149.86, cm, 12/24/20 13:59:00 CDT, Height, 93.182, kg, 12/24/20 13:59:00 CDT, Weight donepezil 0 Yes = 1 tab, Jose Francisco zhang 10 mg oral 3-26 PO, Daily, l tablet 19:08: # 90 tab, Ajay n 00 1 Refill(s), Pharmacy: [facility] cy #[id number], 149.86, cm, 12/24/20 13:59:00 CDT, Height, 93.182, kg, 12/24/20 13:59:00 CDT, Weight primidone 0 Yes 50 mg = 1 Mem oria 50 mg oral 3-26 tab, PO, l tablet 19:08: Bedtime, # Jessie nn 00 90 tab, 2 Refill(s), Pharmacy: [facility] cy #[id number], 149.86, cm, 12/24/20 13:59:00 CDT, Height, 93.182, kg, 12/24/20 13:59:00 CDT, Weight donepezil 2021-0 Yes = 1 tab, Jose Francisco zhang 10 mg oral 3-26 PO, Daily, l tablet 19:08: # 90 tab, Ajay n 00 1 Refill(s), Pharmacy: [facility] cy #[id number], 149.86, cm, 12/24/20 13:59:00 CDT, Height, 93.182, kg, 12/24/20 13:59:00 CDT, Weight primidone 2021-0 Yes 50 mg = 1 Mem oria 50 mg oral 3-26 tab, PO, l tablet 19:08: Bedtime, # Jessie nn 00 90 tab, 2 Refill(s), Pharmacy: [facility] #[id number], 149.86, cm, 12/24/20 13:59:00 CDT, Height, 93.182, kg, 12/24/20 13:59:00 CDT, Weight donepezil 2020-0 Yes = 1 tab, Jose Francisco zhang 10 mg oral 3-26 PO, Daily, l tablet 19:08: # 90 tab, Ajay n 00 1 Refill(s), Pharmacy: [facility] #[id number], 149.86, cm, 12/24/20 13:59:00 CDT, Height, 93.182, kg, 12/24/20 13:59:00 CDT, Weight primidone 2021-0 Yes 50 mg = 1 Mem oria 50 mg oral 3-26 tab, PO, l tablet 19:08: Bedtime, # Jessie nn 00 90 tab, 2 Refill(s), Pharmacy: [facility] #[id number], 149.86, cm, 12/24/20 13:59:00 CDT, Height, 93.182, kg, 12/24/20 13:59:00 CDT, Weight donepezil 2021-0 Yes = 1 tab, Jose Francisco zhang 10 mg oral 3-26 PO, Daily, l tablet 19:08: # 90 tab, Ajay n 00 1 Refill(s), Pharmacy: [facility] #[id number], 149.86, cm, 12/24/20 13:59:00 CDT, Height, 93.182, kg, 12/24/20 13:59:00 CDT, Weight primidone 2020-0 Yes 50 mg = 1 Mem oria 50 mg oral 3-26 tab, PO, l tablet 19:08: Bedtime, # Jessie nn 00 90 tab, 2 Refill(s), Pharmacy: [facility] kevin #[id number], 149.86, cm, 12/24/20 13:59:00 CDT, Height, 93.182, kg, 12/24/20 13:59:00 CDT, Weight donepezil 2020-0 Yes = 1 tab, Jose Francisco zhang 10 mg oral 3-26 PO, Daily, l tablet 19:08: # 90 tab, Ajay n 00 1 Refill(s), Pharmacy: [facility] kevin #[id number], 149.86, cm, 12/24/20 13:59:00 CDT, Height, 93.182, kg, 12/24/20 13:59:00 CDT, Weight primidone 2020-0 Yes 50 mg = 1 Mem oria 50 mg oral 3-26 tab, PO, l tablet 19:08: Bedtime, # Jessie nn 00 90 tab, 2 Refill(s), Pharmacy: [facility] cy #[id number], 149.86, cm, 12/24/20 13:59:00 CDT, Height, 93.182, kg, 12/24/20 13:59:00 CDT, Weight donepezil 2020-0 Yes = 1 tab, Jose Francisco zhang 10 mg oral 3-26 PO, Daily, l tablet 19:08: # 90 tab, Ajay n 00 1 Refill(s), Pharmacy: [facility] cy #[id number], 149.86, cm, 12/24/20 13:59:00 CDT, Height, 93.182, kg, 12/24/20 13:59:00 CDT, Weight primidone 1-0 Yes 50 mg = 1 Mem oria 50 mg oral 3-26 tab, PO, l tablet 19:08: Bedtime, # Jessie nn 00 90 tab, 2 Refill(s), Pharmacy: [facility] cy #[id number], 149.86, cm, 12/24/20 13:59:00 CDT, Height, 93.182, kg, 12/24/20 13:59:00 CDT, Weight donepezil 2021-0 Yes = 1 tab, Jose Francisco zhang 10 mg oral 3-26 PO, Daily, l tablet 19:08: # 90 tab, Ajay n 00 1 Refill(s), Pharmacy: [facility] kevin #[id number], 149.86, cm, 12/24/20 13:59:00 CDT, Height, 93.182, kg, 12/24/20 13:59:00 CDT, Weight primidone 2021-0 Yes 50 mg = 1 Mem oria 50 mg oral 3-26 tab, PO, l tablet 19:08: Bedtime, # Jessie nn 00 90 tab, 2 Refill(s), Pharmacy: [facility] kevin #[id number], 149.86, cm, 12/24/20 13:59:00 CDT, Height, 93.182, kg, 12/24/20 13:59:00 CDT, Weight donepezil 2020-0 Yes = 1 tab, Jose Francisco zhang 10 mg oral 3-26 PO, Daily, l tablet 19:08: # 90 tab, Ajay n 00 1 Refill(s), Pharmacy: [facility] #[id number], 149.86, cm, 12/24/20 13:59:00 CDT, Height, 93.182, kg, 12/24/20 13:59:00 CDT, Weight primidone 1-0 Yes 50 mg = 1 Mem oria 50 mg oral 3-26 tab, PO, l tablet 19:08: Bedtime, # Jessie nn 00 90 tab, 2 Refill(s), Pharmacy: [facility] #[id number], 149.86, cm, 12/24/20 13:59:00 CDT, Height, 93.182, kg, 12/24/20 13:59:00 CDT, Weight donepezil 2021-0 Yes = 1 tab, Jose Francisco zhang 10 mg oral 3-26 PO, Daily, l tablet 19:08: # 90 tab, Ajay n 00 1 Refill(s), Pharmacy: [facility] cy #[id number], 149.86, cm, 12/24/20 13:59:00 CDT, Height, 93.182, kg, 12/24/20 13:59:00 CDT, Weight primidone 1-0 Yes 50 mg = 1 Mem oria 50 mg oral 3-26 tab, PO, l tablet 19:08: Bedtime, # Jessie nn 00 90 tab, 2 Refill(s), Pharmacy: [facility] cy #[id number], 149.86, cm, 12/24/20 13:59:00 CDT, Height, 93.182, kg, 12/24/20 13:59:00 CDT, Weight donepezil 2020-0 Yes = 1 tab, Jose Francisco zhang 10 mg oral 3-26 PO, Daily, l tablet 19:08: # 90 tab, Ajay n 00 1 Refill(s), Pharmacy: [facility] cy #[id number], 149.86, cm, 12/24/20 13:59:00 CDT, Height, 93.182, kg, 12/24/20 13:59:00 CDT, Weight primidone 1-0 Yes 50 mg = 1 Mem oria 50 mg oral 3-26 tab, PO, l tablet 19:08: Bedtime, # Jessie nn 00 90 tab, 2 Refill(s), Pharmacy: [facility] cy #[id number], 149.86, cm, 12/24/20 13:59:00 CDT, Height, 93.182, kg, 12/24/20 13:59:00 CDT, Weight donepezil 2020-0 Yes = 1 tab, Jose Francisco zhang 10 mg oral 3-26 PO, Daily, l tablet 19:08: # 90 tab, Ajay n 00 1 Refill(s), Pharmacy: [facility] cy #[id number], 149.86, cm, 12/24/20 13:59:00 CDT, Height, 93.182, kg, 12/24/20 13:59:00 CDT, Weight primidone 1-0 Yes 50 mg = 1 Mem oria 50 mg oral 3-26 tab, PO, l tablet 19:08: Bedtime, # Jessie nn 00 90 tab, 2 Refill(s), Pharmacy: [facility] cy #[id number], 149.86, cm, 12/24/20 13:59:00 CDT, Height, 93.182, kg, 12/24/20 13:59:00 CDT, Weight donepezil 2021-0 Yes = 1 tab, Jose Francisco zhang 10 mg oral 3-26 PO, Daily, l tablet 19:08: # 90 tab, Ajay n 00 1 Refill(s), Pharmacy: [facility] cy #[id number], 149.86, cm, 12/24/20 13:59:00 CDT, Height, 93.182, kg, 12/24/20 13:59:00 CDT, Weight primidone 1-0 Yes 50 mg = 1 Mem oria 50 mg oral 3-26 tab, PO, l tablet 19:08: Bedtime, # Jessie nn 00 90 tab, 2 Refill(s), Pharmacy: [facility] cy #[id number], 149.86, cm, 12/24/20 13:59:00 CDT, Height, 93.182, kg, 12/24/20 13:59:00 CDT, Weight donepezil 2020-0 Yes = 1 tab, Jose Francisco zhang 10 mg oral 3-26 PO, Daily, l tablet 19:08: # 90 tab, Ajay n 00 1 Refill(s), Pharmacy: [facility] cy #[id number], 149.86, cm, 12/24/20 13:59:00 CDT, Height, 93.182, kg, 12/24/20 13:59:00 CDT, Weight primidone 2020-0 Yes 50 mg = 1 Mem oria 50 mg oral 3-26 tab, PO, l tablet 19:08: Bedtime, # Jessie nn 00 90 tab, 2 Refill(s), Pharmacy: [facility] cy #[id number], 149.86, cm, 12/24/20 13:59:00 CDT, Height, 93.182, kg, 12/24/20 13:59:00 CDT, Weight Lidocaine Lidocaine 2020-0 No 10mg Com mon 3-11 [facility] 00:[facility]: - [facility] Celestone Celestone 2020-0 No 6mg Com mon Soluspan Soluspan 311 [facility] (Betamethas (Betamethas 00:00: - [facility] one) one) [facility] Lidocaine Lidocaine 2020-0 No 10mg Com mon 3-11 [facility] 00:00: - [facility] Celestone Celestone 2020-0 No 6mg Com mon Soluspan Soluspan 3-11 [facility] (Betamethas (Betamethas 00:00: - [facility] one) one) 00 [facility] Lidocaine Lidocaine 2020-0 No 10mg Com 12-09 [facility] 00:00: - [facility] 00 [facility] Celestone Celestone 2020-0 No 6mg Com mon Soluspan Soluspan 3-11 [facility] (Betamethas (Betamethas 00:00: - [facility] one) one) 00 [facility] Lidocaine Lidocaine 2020-0 No 10mg Com mon 12-09 [facility] 00:00: - [facility] 00 [facility] Celestone Celestone 2020-0 No 6mg Com mon Soluspan Soluspan 3-11 [facility] (Betamethas (Betamethas 00:00: - [facility] one) one) 00 [facility] Lidocaine Lidocaine 2020-0 No 10mg Com 12-09 [facility] 00:00: - [facility] 00 [facility] Celestone Celestone 2020-0 No 6mg Com mon Soluspan Soluspan 3-11 [facility] (Betamethas (Betamethas 00:00: - [facility] one) one) 00 [facility] Lidocaine Lidocaine 2020-0 No 10mg Com 12-09 [facility] 00:00: - [facility] 00 [facility] Celestone Celestone 2020-0 No 6mg Com mon Soluspan Soluspan 3-11 [facility] (Betamethas (Betamethas 00:00: - [facility] one) one) 00 [facility] Lidocaine Lidocaine 2020-0 No 10mg Com 12-09 [facility] 00:00: - [facility] 00 [facility] Celestone Celestone 2020-0 No 6mg Com mon Soluspan Soluspan 3-11 [facility] (Betamethas (Betamethas 00:00: - [facility] one) one) 00 [facility] Lidocaine Lidocaine 2020-0 No 10mg Com 12-09 [facility] 00:00: - [facility] 00 [facility] Celestone Celestone 2020-0 No 6mg Com mon Soluspan Soluspan 3-11 [facility] (Betamethas (Betamethas 00:00: - [facility] one) one) 00 [facility] Lovastatin 2020-1 No 20 mg, 1 Mem oria 2-07 tab, l 03:00: Route: PO, Raul 00 Drug form: TAB, Bedtime, Dosing Weight 104.545, kg, Start date: 09/05/20 21:00:00 JACKET PREPARER, Duration: 30 day, Stop date: 10/04/20 21:00:00 JACKET PREPARER Primidone 2019-10 No Notes: Memori a 2-07 (Same as: l 03:00: Mysoline) Lipitor 2019-10 No Notes: Memoria 2-07 (Same As: l 03:00: Lipitor) Lovastatin 2019-10 No 20 mg, 1 Mem oria 2-07 tab, l 03:00: Route: PO, [facility] 00 Drug form: TAB, Bedtime, Dosing Weight 104.545, kg, Start date: 09/05/20 21:00:00 JACKET PREPARER, Duration: 30 day, Stop date: 10/04/20 21:00:00 JACKET PREPARER Primidone 2019-10 No Notes: Memori a 2-07 (Same as: l 03:00: Mysoline) Lipitor 2019-10 No Notes: Memoria 2-07 (Same As: l 03:00: Lipitor) Lovastatin 2019-10 No 20 mg, 1 Mem oria 2-07 tab, l 03:00: Route: PO, Raul 00 Drug form: TAB, Bedtime, Dosing Weight 104.545, kg, Start date: 09/05/20 21:00:00 JACKET PREPARER, Duration: 30 day, Stop date: 10/04/20 21:00:00 JACKET PREPARER Primidone 2019-10 No Notes: Memori a 2-07 (Same as: l 03:00: Mysoline) Lipitor 2019-10 No Notes: Memoria 2-07 (Same As: l 03:00: Lipitor) Lovastatin 2019-10 No 20 mg, 1 Mem oria 2-07 tab, l 03:00: Route: PO, [place] 00 Drug form: TAB, Bedtime, Dosing Weight 104.545, kg, Start date: 09/05/20 21:00:00 JACKET PREPARER, Duration: 30 day, Stop date: 10/04/20 21:00:00 JACKET PREPARER Primidone 2019-10 No Notes: Memori a 2-07 (Same as: l 03:00: Mysoline) Lipitor 2019-10 No Notes: Memoria 2-07 (Same As: l 03:00: Lipitor) Lovastatin 2019-10 No 20 mg, 1 Mem oria 2-07 tab, l 03:00: Route: PO, Raul 00 Drug form: TAB, Bedtime, Dosing Weight 104.545, kg, Start date: 09/05/20 21:00:00 JACKET PREPARER, Duration: 30 day, Stop date: 10/04/20 21:00:00 JACKET PREPARER Primidone 2019-10 No Notes: Memori a 2-07 (Same as: l 03:00: Mysoline) Lipitor 2019-10 No Notes: Memoria 2-07 (Same As: l 03:00: Lipitor) Lovastatin 2019-10 No 20 mg, 1 Mem oria 2-07 tab, l 03:00: Route: PO, [place] 00 Drug form: TAB, Bedtime, Dosing Weight 104.545, kg, Start date: 09/05/20 21:00:00 JACKET PREPARER, Duration: 30 day, Stop date: 10/04/20 21:00:00 JACKET PREPARER Primidone 2019-10 No Notes: Memori a 2-07 (Same as: l 03:00: Mysoline) Lipitor 2019-10 No Notes: Memoria 2-07 (Same As: l 03:00: Lipitor) Lovastatin 2019-10 No 20 mg, 1 Mem oria 2-07 tab, l 03:00: Route: PO, Raul 00 Drug form: TAB, Bedtime, Dosing Weight 104.545, kg, Start date: 09/05/20 21:00:00 JACKET PREPARER, Duration: 30 day, Stop date: 10/04/20 21:00:00 JACKET PREPARER Primidone 2019-10 No Notes: Memori a 2-07 (Same as: l 03:00: Mysoline) Lipitor 2019-10 No Notes: Memoria 2-07 (Same As: l 03:00: Lipitor) Lovastatin 2019-10 No 20 mg, 1 Mem oria 2-07 tab, l 03:00: Route: PO, Raul 00 Drug form: TAB, Bedtime, Dosing Weight 104.545, kg, Start date: 09/05/20 21:00:00 JACKET PREPARER, Duration: 30 day, Stop date: 10/04/20 21:00:00 JACKET PREPARER Primidone 2019- No Notes: Memori a 2-07 (Same as: l 03:00: Mysoline) Lipitor 2019-10 No Notes: Memoria 2-07 (Same As: l 03:00: Lipitor) Lovastatin 2019- No 20 mg, 1 Mem oria 2-07 tab, l 03:00: Route: PO, Raul 00 Drug form: TAB, Bedtime, Dosing Weight 104.545, kg, Start date: 09/05/20 21:00:00 JACKET PREPARER, Duration: 30 day, Stop date: 10/04/20 21:00:00 JACKET PREPARER Primidone 2019-10 No Notes: Memori a 2-07 (Same as: l 03:00: Mysoline) Lovastatin 2019-10 No 20 mg, 1 Mem oria 2-07 tab, l 03:00: Route: PO, Raul 00 Drug form: TAB, Bedtime, Dosing Weight 104.545, kg, Start date: 09/05/20 21:00:00 JACKET PREPARER, Duration: 30 day, Stop date: 10/04/20 21:00:00 JACKET PREPARER Lovastatin 2019-10 No 20 mg, 1 Mem oria 2-07 tab, l 03:00: Route: PO, [place] 00 Drug form: TAB, Bedtime, Dosing Weight 104.545, kg, Start date: 09/05/20 21:00:00 JACKET PREPARER, Duration: 30 day, Stop date: 10/04/20 21:00:00 JACKET PREPARER Primidone 2019- No Notes: Memori a 2-07 (Same as: l 03:00: Mysoline) Lipitor 2019-10 No Notes: Memoria 2-07 (Same As: l 03:00: Lipitor) Primidone 2019-10 No Notes: Memori a 2-07 (Same as: l 03:00: Mysoline) Lipitor 2019-10 No Notes: Memoria 2-07 (Same As: l 03:00: Lipitor) Lipitor 2019-10 No Notes: Memoria 2-07 (Same As: l 03:00: Lipitor) Lovastatin 2019-10 No 20 mg, 1 Mem oria 2-07 tab, l 03:00: Route: PO, [place] 00 Drug form: TAB, Bedtime, Dosing Weight 104.545, kg, Start date: 09/05/20 21:00:00 JACKET PREPARER, Duration: 30 day, Stop date: 10/04/20 21:00:00 JACKET PREPARER Primidone 2019-10 No Notes: Memori a 2-07 (Same as: l 03:00: Mysoline) Lipitor 2019-10 No Notes: Memoria 2-07 (Same As: l 03:00: Lipitor) Lovastatin 2019-10 No 20 mg, 1 Mem oria 2-07 tab, l 03:00: Route: PO, Raul 00 Drug form: TAB, Bedtime, Dosing Weight 104.545, kg, Start date: 09/05/20 21:00:00 JACKET PREPARER, Duration: 30 day, Stop date: 10/04/20 21:00:00 JACKET PREPARER Primidone 2019-10 No Notes: Memori a 2-07 (Same as: l 03:00: Mysoline) Lipitor 2019-10 No Notes: Memoria 2-07 (Same As: l 03:00: Lipitor) Lovastatin 2019-10 No 20 mg, 1 Mem oria 2-07 tab, l 03:00: Route: PO, Drug form: TAB, Bedtime, Dosing Weight 104.545, kg, Start date: 09/05/20 21:00:00 JACKET PREPARER, Duration: 30 day, Stop date: 10/04/20 21:00:00 JACKET PREPARER Primidone 2019-10 No Notes: Memori a 2-07 (Same as: l 03:00: Mysoline) Lipitor 2019-10 No Notes: Memoria 2-07 (Same As: l 03:00: Lipitor) Acetaminoph 2019-10 Yes 500 mg = 1 Memoria en 500 MG 2-06 tab, PO, l Oral Tablet 18:51: Q6Hnow, 0 H Refill(s) Acetaminoph 2019-10 Yes 500 mg = [...] Respules 2-06 (Same As: l 16:00: Pulmicort) Raul 00 Pulmicort 2019-10 No Notes: Memori a [...] Respules 2-06 (Same As: l 16:00: Pulmicort) [facility] Pulmicort 2019-10 No Notes: Memori a Respules 2-06 (Same As: l 16:00: Pulmicort) [place] 00 Pulmicort 2019-10 No Notes: Memori a Respules 2-06 (Same As: l 16:00: Pulmicort) Raul 00 Pulmicort 2019-10 No Notes: Memori a Respules 2-06 (Same As: l 16:00: Pulmicort) [place] 00 Pulmicort 2019-10 No Notes: Memori a [...] 104.545, kg, Daily, Start date: 09/05/20 9:00:00 JACKET PREPARER, Duration: 30 day, Stop date: 10/04/20 9:00:00 JACKET PREPARER gabapentin 2019-10 No Notes: Memor ia 300 MG Oral 2-06 (Same as: l Capsule 15:00: Neurontin) ropinirole 2019-10 No Notes: Memor ia 2-06 (Same as: l 15:00: Requip) Bupropion 2019-10 No Notes: Memori a 2-06 (Same as: l 15:00: Wellbutrin [place] 00 XL) "Do Not Crush" carvedilol 2019-10 [...] 104.545, kg, Daily, Start date: 09/05/20 9:00:00 JACKET PREPARER, Duration: 30 day, Stop date: 10/04/20 9:00:00 JACKET PREPARER gabapentin 2019-10 No Notes: Memor ia 300 [...] 104.545, kg, Daily, Start date: 09/05/20 9:00:00 JACKET PREPARER, Duration: 30 day, Stop date: 10/04/20 9:00:00 JACKET PREPARER gabapentin 2019-10 No Notes: Memor ia 300 [...] 104.545, kg, Daily, Start date: 09/05/20 9:00:00 JACKET PREPARER, Duration: 30 day, Stop date: 10/04/20 9:00:00 JACKET PREPARER gabapentin 2019-10 No Notes: Memor ia 300 [...] 104.545, kg, Daily, Start date: 09/05/20 9:00:00 JACKET PREPARER, Duration: 30 day, Stop date: 10/04/20 9:00:00 JACKET PREPARER gabapentin 2019-10 No Notes: Memor ia 300 MG Oral 2-06 (Same as: l Capsule 15:00: Neurontin) ropinirole 2019-10 No Notes: Memor ia 2-06 (Same as: l 15:00: Requip) Bupropion 2019-10 No Notes: Memori a 2-06 (Same as: l 15:00: Wellbutrin [place] XL) "Do Not Crush" carvedilol 2019-10 No [...] 104.545, kg, Daily, Start date: 09/05/20 9:00:00 JACKET PREPARER, Duration: 30 day, Stop date: 10/04/20 9:00:00 JACKET PREPARER gabapentin 2019-10 No Notes: Memor ia 300 [...] 104.545, kg, Daily, Start date: 09/05/20 9:00:00 JACKET PREPARER, Duration: 30 day, Stop date: 10/04/20 9:00:00 JACKET PREPARER gabapentin 2019-10 No Notes: Memor ia 300 [...] 104.545, kg, Daily, Start date: 09/05/20 9:00:00 JACKET PREPARER, Duration: 30 day, Stop date: 10/04/20 9:00:00 JACKET PREPARER gabapentin 2019-10 No Notes: Memor ia 300 MG Oral 2-06 (Same as: l Capsule 15:00: Neurontin) ropinirole 2019-10 No Notes: Memor ia 2-06 (Same as: l 15:00: Requip) Bupropion 2019-10 No Notes: Memori a 2-06 (Same as: l 15:00: Wellbutrin [place] 00 XL) "Do Not Crush" carvedilol 2019-10 [...] 104.545, kg, Daily, Start date: 09/05/20 9:00:00 JACKET PREPARER, Duration: 30 day, Stop date: 10/04/20 9:00:00 JACKET PREPARER gabapentin 2019-10 No Notes: Memor ia 300 MG Oral 2-06 (Same as: l Capsule 15:00: Neurontin) ropinirole 2019-10 No Notes: Memor ia 2-06 (Same as: l 15:00: Requip) Bupropion 2019-10 No Notes: Memori a 2-06 (Same as: l 15:00: Wellbutrin Raul 00 XL) "Do Not Crush" carvedilol 2019-10 No Notes: Memor ia 2-06 Give with l 15:00: food. Seadrift 00 (Same As: Coreg) donepezil 2019-10 No [...] 104.545, kg, Daily, Start date: 09/05/20 9:00:00 JACKET PREPARER, Duration: 30 day, Stop date: 10/04/20 9:00:00 JACKET PREPARER gabapentin 2019-10 No Notes: Memor ia 300 [...] 104.545, kg, Daily, Start date: 09/05/20 9:00:00 JACKET PREPARER, Duration: 30 day, Stop date: 10/04/20 9:00:00 JACKET PREPARER gabapentin 2019-10 No Notes: Memor ia 300 [...] 104.545, kg, Daily, Start date: 09/05/20 9:00:00 JACKET PREPARER, Duration: 30 day, Stop date: 10/04/20 9:00:00 JACKET PREPARER gabapentin 2019-10 No Notes: Memor ia 300 [...] 104.545, kg, Daily, Start date: 09/05/20 9:00:00 JACKET PREPARER, Duration: 30 day, Stop date: 10/04/20 9:00:00 JACKET PREPARER gabapentin 2019-10 No Notes: Memor ia 300 [...] 104.545, kg, Daily, Start date: 09/05/20 9:00:00 JACKET PREPARER, Duration: 30 day, Stop date: 10/04/20 9:00:00 JACKET PREPARER gabapentin 2019-10 No Notes: Memor ia 300 MG Oral 2-06 (Same as: l Capsule 15:00: Neurontin) ropinirole 2019-10 No Notes: Memor ia 2-06 (Same as: l 15:00: Requip) Streptococc 2019-10 No Notes: Jose Francisco zhang us 2-06 Shake well l pneumoniae 14:12: prior to Her ivory serotype 1 45 use (Same capsular as: antigen Prevnar diphtheria 13) [id number] protein conjugate vaccine / Streptococc us pneumoniae serotype 14 capsular antigen diphtheria [id number] protein conjugate vaccine / Streptococc us pneumoniae serotype 18C capsular antigen d Streptococc 2020- No Notes: Jose Francisco zhang 2-06 Shake well l pneumoniae 14:12: prior to Her ivory serotype 1 45 use (Same capsular as: antigen Prevnar diphtheria 13) [id number] protein conjugate vaccine / Streptococc us pneumoniae serotype 14 capsular antigen diphtheria [id number] protein conjugate vaccine / Streptococc us pneumoniae serotype 18C capsular antigen d Streptococc 2020- No Notes: Jose Francisco zhang 2-06 Shake well l pneumoniae 14:12: prior to Her ivory serotype 1 45 use (Same capsular as: antigen Prevnar diphtheria 13) [id number] protein conjugate vaccine / Streptococc us pneumoniae serotype 14 capsular antigen diphtheria [id number] protein conjugate vaccine / Streptococc us pneumoniae serotype 18C capsular antigen d Streptococc 2019- No Notes: Jose Francisco zhang 2-06 Shake well l pneumoniae 14:12: prior to Her ivory serotype 1 45 use (Same capsular as: antigen Prevnar diphtheria 13) [id number] protein conjugate vaccine / Streptococc us pneumoniae serotype 14 capsular antigen diphtheria [id number] protein conjugate vaccine / Streptococc us pneumoniae serotype 18C capsular antigen d Streptococc 2019- No Notes: Jose Francisco [facility] 2-06 Shake well l pneumoniae 14:12: prior to Her ivory serotype 1 45 use (Same capsular as: antigen Prevnar diphtheria 13) [id number] protein conjugate vaccine / Streptococc us pneumoniae serotype 14 capsular antigen diphtheria [id number] protein conjugate vaccine / Streptococc us pneumoniae serotype 18C capsular antigen d Streptococc 2020- No Notes: Jose Francisco zhang 2-06 Shake well l pneumoniae 14:12: prior to Her ivory serotype 1 45 use (Same capsular as: antigen Prevnar diphtheria 13) [id number] protein conjugate vaccine / Streptococc us pneumoniae serotype 14 capsular antigen diphtheria [id number] protein conjugate vaccine / Streptococc us pneumoniae serotype 18C capsular antigen d Streptococc 2020- No Notes: Jose Francisco zhang 2-06 Shake well l pneumoniae 14:12: prior to Her ivory serotype 1 45 use (Same capsular as: antigen Prevnar diphtheria 13) [id number] protein conjugate vaccine / Streptococc us pneumoniae serotype 14 capsular antigen diphtheria [id number] protein conjugate vaccine / Streptococc us pneumoniae serotype 18C capsular antigen d Streptococc 2020- No Notes: Jose Francisco zhang us 2-06 Shake well l pneumoniae 14:12: prior to Her ivory serotype 1 45 use (Same capsular as: antigen Prevnar diphtheria 13) [id number] protein conjugate vaccine / Streptococc us pneumoniae serotype 14 capsular antigen diphtheria [id number] protein conjugate vaccine / Streptococc us pneumoniae serotype 18C capsular antigen d Streptococc 2020- No Notes: Jose Francisco zhang us 2-06 Shake well l pneumoniae 14:12: prior to Her ivory serotype 1 45 use (Same capsular as: antigen Prevnar diphtheria 13) [id number] protein conjugate vaccine / Streptococc us pneumoniae serotype 14 capsular antigen diphtheria [id number] protein conjugate vaccine / Streptococc us pneumoniae serotype 18C capsular antigen d Streptococc 2020- No Notes: Jose Francisco zhang us 2-06 Shake well l pneumoniae 14:12: prior to Her ivory serotype 1 45 use (Same capsular as: antigen Prevnar diphtheria 13) [id number] protein conjugate vaccine / Streptococc us pneumoniae serotype 14 capsular antigen diphtheria [id number] protein conjugate vaccine / Streptococc us pneumoniae serotype 18C capsular antigen d Streptococc 2020- No Notes: Jose Francisco zhang us 2-06 Shake well l pneumoniae 14:12: prior to Her ivory serotype 1 45 use (Same capsular as: antigen Prevnar diphtheria 13) [id number] protein conjugate vaccine / Streptococc us pneumoniae serotype 14 capsular antigen diphtheria [id number] protein conjugate vaccine / Streptococc us pneumoniae serotype 18C capsular antigen d Streptococc 2020- No Notes: Jose Francisco zhang us 2-06 Shake well l pneumoniae 14:12: prior to Her ivory serotype 1 45 use (Same capsular as: antigen Prevnar diphtheria 13) [id number] protein conjugate vaccine / Streptococc us pneumoniae serotype 14 capsular antigen diphtheria [id number] protein conjugate vaccine / Streptococc us pneumoniae serotype 18C capsular antigen d Streptococc 2020- No Notes: Jose Francisco zhang us 2-06 Shake well l pneumoniae 14:12: prior to Her ivory serotype 1 45 use (Same capsular as: antigen Prevnar diphtheria 13) [id number] protein conjugate vaccine / Streptococc us pneumoniae serotype 14 capsular antigen diphtheria [id number] protein conjugate vaccine / Streptococc us pneumoniae serotype 18C capsular antigen d Streptococc 2019- No Notes: Jose Francisco zhang us 2-06 Shake well l pneumoniae 14:12: prior to Her ivory serotype 1 45 use (Same capsular as: antigen Prevnar diphtheria 13) [id number] protein conjugate vaccine / Streptococc us pneumoniae serotype 14 capsular antigen diphtheria [id number] protein conjugate vaccine / Streptococc us pneumoniae serotype 18C capsular antigen d Thyroxine 2019-10 No Notes: Memori a 2-06 Take 1 l 14:00: hour [place] 00 before or 2 hours after meal; [...] a 2-06 Take 1 l 14:00: hour [place] 00 before or 2 hours after meal; Enteral feeds may interefere with the absorption of this medication . (Same as:Levothr oid) Thyroxine 2019-10 No Notes: Memori a 2-06 Take 1 l 14:00: hour [place] 00 before or 2 hours after meal; Enteral feeds may interefere with the absorption of this medication . (Same as:Levothr oid) Thyroxine 2019-10 No Notes: Memori a 2-06 Take 1 l 14:00: hour [place] 00 before or 2 hours after meal; Enteral feeds may interefere with the absorption of this medication . (Same as:Levothr oid) Thyroxine 2019-10 No Notes: Memori a 2-06 Take 1 l 14:00: hour [place] 00 before or 2 hours after meal; [...] a 2-06 Take 1 l 14:00: hour [place] 00 before or 2 hours after meal; [...] kg, ONCALL, STAT, Start date: 09/05/20 6:39:00 JACKET PREPARER, Duration: 1 doses or times, Dose = 2.2ml/kg, Max dose = 100ml -- "To be infused by Radiology Staff ONLY" Iohexol 2020-1 No 100 mL, Memoria 2- Route: l 12:39: IVP, Drug [place] 00 Form: SOLN, Dosing Weight 104.545, kg, ONCALL, STAT, Start date: 09/05/20 6:39:00 JACKET PREPARER, Duration: 1 doses or times, Dose = 2.2ml/kg, Max dose = 100ml -- "To be infused by Radiology Staff ONLY" Iohexol 2020-1 No 100 mL, Memoria 2-06 Route: l 12:39: IVP, Drug Raul 00 Form: SOLN, Dosing Weight 104.545, kg, ONCALL, STAT, Start date: 09/05/20 6:39:00 JACKET PREPARER, Duration: 1 doses or times, Dose = 2.2ml/kg, Max dose = 100ml -- "To be infused by Radiology Staff ONLY" Iohexol 2020-1 No 100 mL, Memoria 2-06 Route: l 12:39: IVP, Drug [place] 00 Form: SOLN, Dosing Weight 104.545, kg, ONCALL, STAT, Start date: 09/05/20 6:39:00 JACKET PREPARER, Duration: 1 doses or times, Dose = 2.2ml/kg, Max dose = 100ml -- "To be infused by Radiology Staff ONLY" Iohexol 2020-1 No 100 mL, Memoria 2-06 Route: l 12:39: IVP, Drug [place] 00 Form: SOLN, Dosing Weight 104.545, kg, ONCALL, STAT, Start date: 09/05/20 6:39:00 JACKET PREPARER, Duration: 1 doses or times, Dose = 2.2ml/kg, Max dose = 100ml -- "To be infused by Radiology Staff ONLY" Iohexol 2020-1 No 100 mL, Memoria 2-06 Route: l 12:39: IVP, Drug [place] 00 Form: SOLN, Dosing Weight 104.545, kg, ONCALL, STAT, Start date: 09/05/20 6:39:00 JACKET PREPARER, Duration: 1 doses or times, Dose = 2.2ml/kg, Max dose = 100ml -- "To be infused by Radiology Staff ONLY" Iohexol 2020-1 No 100 mL, Memoria 2-06 Route: l 12:39: IVP, Drug [place] 00 Form: SOLN, Dosing Weight 104.545, kg, ONCALL, STAT, Start date: 09/05/20 6:39:00 JACKET PREPARER, Duration: 1 doses or times, Dose = 2.2ml/kg, Max dose = 100ml -- "To be infused by Radiology Staff ONLY" Iohexol 2020-1 No 100 mL, Memoria 2-06 Route: l 12:39: IVP, Drug [place] 00 Form: SOLN, Dosing Weight 104.545, kg, ONCALL, STAT, Start date: 09/05/20 6:39:00 JACKET PREPARER, Duration: 1 doses or times, Dose = 2.2ml/kg, Max dose = 100ml -- "To be infused by Radiology Staff ONLY" Iohexol 2020-1 No 100 mL, Memoria 2-06 Route: l 12:39: IVP, Drug [place] 00 Form: SOLN, Dosing Weight 104.545, kg, ONCALL, STAT, Start date: 09/05/20 6:39:00 JACKET PREPARER, Duration: 1 doses or times, Dose = 2.2ml/kg, Max dose = 100ml -- "To be infused by Radiology Staff ONLY" Iohexol 2020-1 No 100 mL, Memoria 2-06 Route: l 12:39: IVP, Drug Raul 00 Form: SOLN, Dosing Weight 104.545, kg, ONCALL, STAT, Start date: 09/05/20 6:39:00 JACKET PREPARER, Duration: 1 doses or times, Dose = 2.2ml/kg, Max dose = 100ml -- "To be infused by Radiology Staff ONLY" Iohexol 2020-1 No 100 mL, Memoria 2-06 Route: l 12:39: IVP, Drug Raul 00 Form: SOLN, Dosing Weight 104.545, kg, ONCALL, STAT, Start date: 09/05/20 6:39:00 JACKET PREPARER, Duration: 1 doses or times, Dose = 2.2ml/kg, Max dose = 100ml -- "To be infused by Radiology Staff ONLY" Iohexol 2020-1 No 100 mL, Memoria 2-06 Route: l 12:39: IVP, Drug [place] 00 Form: SOLN, Dosing Weight 104.545, kg, ONCALL, STAT, Start date: 09/05/20 6:39:00 JACKET PREPARER, Duration: 1 doses or times, Dose = 2.2ml/kg, Max dose = 100ml -- "To be infused by Radiology Staff ONLY" Iohexol 2020-1 No 100 mL, Memoria 2-06 Route: l 12:39: IVP, Drug Raul 00 Form: SOLN, Dosing Weight 104.545, kg, ONCALL, STAT, Start date: 09/05/20 6:39:00 JACKET PREPARER, Duration: 1 doses or times, Dose = 2.2ml/kg, Max dose = 100ml -- "To be infused by Radiology Staff ONLY" Iohexol 2019-10 No 100 mL, Memoria 2-06 Route: l 12:39: IVP, Drug Raul 00 Form: SOLN, Dosing Weight 104.545, kg, ONCALL, STAT, Start date: 09/05/20 6:39:00 JACKET PREPARER, Duration: 1 doses or times, Dose = 2.2ml/kg, Max dose = 100ml -- "To be infused by Radiology Staff ONLY" Acetaminoph 2019-10 No Notes: Max Memoria en 2-06 acetaminop l 07:00: hen 4000 [place] 00 mg/day (4 gm/day). (Same as: Tylenol Extra Strength) Acetaminoph 2019-10 No Notes: Max Memoria en 2-06 acetaminop l 07:00: hen 4000 [place] 00 mg/day (4 gm/day). (Same as: Tylenol [...] en 2-06 acetaminop l 07:00: hen 4000 [place] 00 mg/day (4 gm/day). (Same as: Tylenol Extra Strength) Acetaminoph 2019-10 No Notes: Max Memoria en 2-06 acetaminop l 07:00: hen 4000 [place] 00 mg/day (4 gm/day). (Same as: Tylenol Extra Strength) Acetaminoph 2019-10 No Notes: Max Memoria en 2-06 acetaminop l 07:00: hen 4000 Raul 00 mg/day (4 gm/day). (Same as: Tylenol Extra Strength) Acetaminoph 2019-10 No Notes: Max Memoria en 2-06 acetaminop l 07:00: hen 4000 [place] 00 mg/day (4 gm/day). (Same as: Tylenol Extra Strength) Acetaminoph 2019-10 No Notes: Max Memoria en 2-06 acetaminop l 07:00: hen 4000 Raul 00 mg/day (4 gm/day). (Same as: Tylenol Extra Strength) Acetaminoph 2019-10 No Notes: Max Memoria en 2-06 acetaminop l 07:00: hen 4000 [place] 00 mg/day (4 gm/day). (Same as: Tylenol Extra Strength) Acetaminoph 2019-10 No Notes: Max Memoria en 2-06 acetaminop l 07:00: hen 4000 Raul 00 mg/day (4 gm/day). (Same as: Tylenol Extra Strength) Acetaminoph 2019-10 No Notes: Max Memoria en 2-06 acetaminop l 07:00: hen 4000 [place] 00 mg/day (4 gm/day). (Same as: Tylenol Extra Strength) Acetaminoph 2019-10 No Notes: Max Memoria en 2-06 acetaminop l 07:00: hen 4000 [place] 00 mg/day (4 gm/day). (Same as: Tylenol [...] tab, PO, l Tablet 06:48: Daily, # [place] 00 60 tab, 1 Refill(s) Trelegy 2019-10 [...] tab, PO, l tablet 06:48: Daily, # [place] 00 90 tab, 0 Refill(s) escitalopra 2019-10 [...] l oral tablet 06:48: BID, # 180 [place] 00 tab, 1 Refill(s) amLODIPine 2019-10 Yes 10 mg = 1 Me moria 10 mg oral 2-06 tab, PO, l tablet 06:48: Daily, # [place] 00 90 tab, 0 Refill(s) escitalopra 2019-10 [...] tab, PO, l Tablet 06:48: Daily, # [place] 00 60 tab, 1 Refill(s) Trelegy 2019-10 [...] l oral tablet 06:48: BID, # 180 [place] 00 tab, 1 Refill(s) amLODIPine 2019-10 Yes 10 mg = 1 Me moria 10 mg oral 2-06 tab, PO, l tablet 06:48: Daily, # [place] 00 90 tab, 0 Refill(s) escitalopra 2019-10 [...] tab, PO, l Tablet 06:48: Daily, # [place] 00 60 tab, 1 Refill(s) Trelegy 2019-10 Yes = 1 Memoria Ellipta 2-06 inhalation l inhalation 06:48: , PO, Ajay n powder 00 Daily, PRN COPD, # 1 ea, 0 Refill(s) Oxycodone 2019-10 No Notes: Memori a Hydrochlori 2-06 (Same as: l de 1 MG/ML 06:48: 'Roxicodon H erm Oral e) Solution spironolact 2019-10 Yes 25 mg = 1 M emoria one 25 mg 2-06 tab, PO, l oral tablet 06:48: Daily, # He rmann 00 30 tab, 3 Refill(s) carvedilol 2019-10 Yes 6.25 mg = Me moria 6.25 mg 2-06 1 tab, PO, l oral tablet 06:48: BID, # 180 [place] 00 tab, 1 Refill(s) amLODIPine 2019-10 Yes [...] tab, PO, l Tablet 06:48: Daily, # [place] 00 60 tab, 1 Refill(s) Trelegy 2019-10 [...] l oral tablet 06:48: BID, # 180 [place] 00 tab, 1 Refill(s) amLODIPine 2019-10 Yes [...] tab, PO, l Tablet 06:48: Daily, # [place] 00 60 tab, 1 Refill(s) Trelegy 2019-10 [...] l oral tablet 06:48: BID, # 180 [place] 00 tab, 1 Refill(s) amLODIPine 2019-10 Yes 10 mg = 1 Me moria 10 mg oral 2-06 tab, PO, l tablet 06:48: Daily, # [place] 00 90 tab, 0 Refill(s) escitalopra 2019-10 [...] tab, PO, l Tablet 06:48: Daily, # [place] 00 60 tab, 1 Refill(s) Trelegy 2019-10 [...] l oral tablet 06:48: BID, # 180 [place] 00 tab, 1 Refill(s) amLODIPine 2019-10 Yes [...] Blood Glucose Results, Start date: 09/05/20 0:47:00 JACKET PREPARER, Duration: 30 day, Stop date: 10/05/20 0:46:00 JACKET PREPARER, 0 Glucagon 2019-10 No 1 mg, Memoria 11-06 Route: IM, l 06:47: Drug form: PDR/INJ, PRN, Dosing Weight 104.545, kg, PRN Blood Glucose Results, Start date: 09/05/20 0:47:00 JACKET PREPARER, Duration: 30 day, Stop date: 10/05/20 0:46:00 JACKET PREPARER, 0 sennosides, 2019-10 No Notes: Jose Francisco zhang NURSING HOME 2-06 (Same as: l 06:47: Senokot) POLYETHYLEN [...] Total Volume: 1,000, Start date: 09/05/20 0:47:00 JACKET PREPARER, Duration: 1 day, Stop date: 09/06/20 0:46:00 JACKET PREPARER, 1.97, m2, 0 Tums 2019-10 No Notes: [...] 0.65% 2- (Same as: l solution 06:47: [place], Raul 00 Deep Sea Nasal [place]). Tessalon 2019-10 No Notes: Memoria Perles 2-06 (Same As: l 06:47: Tessalon Perles) "Do Not Crush" Guaifenesin 2019-10 No Notes: Jose Francisco zhang 2-06 (Same as: l 06:47: Organidin [place] 00 NR) Blistex 2019-10 No Notes: Memoria topical 2- Same as: l ointment 06:47: Blistex Ajay n 00 Albuterol 2019-10 No Notes: SEE Me moria 0.83 MG/ML 2-06 RT l Inhalant 06:47: DOCUMENTAT Her ivory Solution 00 ION (Same as: Proventil) Dextrose 2019-10 No 12.5 gm, Memor ia 50% Syringe 2-06 25 mL, l (D50W) 06:47: Route: [place] IVP, Drug Form: INJ, Dosing Weight 104.545, kg, PRN, PRN Blood Glucose Results, Start date: 09/05/20 0:47:00 JACKET PREPARER, Duration: 30 day, Stop date: 10/05/20 0:46:00 JACKET PREPARER, 0 Glucagon 2019-10 No 1 mg, Memoria 2-06 Route: IM, l 06:47: Drug form: [place] 00 PDR/INJ, PRN, Dosing Weight 104.545, kg, PRN Blood Glucose Results, Start date: 09/05/20 0:47:00 JACKET PREPARER, Duration: 30 day, Stop date: 10/05/20 0:46:00 JACKET PREPARER, 0 sennosides, 2019-10 No Notes: Jose Francisco zhang [facility]URSING HOME 2-06 (Same as: l 06:47: Senokot) POLYETHYLEN [...] Total Volume: 1,000, Start date: 09/05/20 0:47:00 JACKET PREPARER, Duration: 1 day, Stop date: 09/06/20 0:46:00 JACKET PREPARER, 1.97, m2, 0 Tums 2019-10 No Notes: [...] 0.65% 2-06 (Same as: l solution 06:47: [place], Deep Sea Nasal [place]). Tessalon 2019-10 No Notes: Memoria Perles 2-06 (Same As: l 06:47: Tessalon Perles) "Do Not Crush" Guaifenesin 2019-10 No Notes: Jose Francisco zhang 2-06 (Same as: l 06:47: Organidin Raul 00 NR) Blistex 2019-10 No Notes: Memoria topical 11-06 Same as: l ointment 06:47: Blistex Ajay n 00 Albuterol 2019-10 No Notes: SEE Me moria 0.83 MG/ML 11-06 RT l Inhalant 06:47: DOCUMENTAT Her ivory Solution 00 ION (Same as: Proventil) Dextrose 2019-10 No 12.5 gm, Memor ia 50% Syringe 11-06 25 mL, l (D50W) 06:47: Route: [place] 00 IVP, Drug Form: INJ, Dosing Weight 104.545, kg, PRN, PRN Blood Glucose Results, Start date: 09/05/20 0:47:00 JACKET PREPARER, Duration: 30 day, Stop date: 10/05/20 0:46:00 JACKET PREPARER, 0 Glucagon 2019-10 No 1 mg, Memoria 11-06 Route: IM, l 06:47: Drug form: Raul 00 PDR/INJ, PRN, Dosing Weight 104.545, kg, PRN Blood Glucose Results, Start date: 09/05/20 0:47:00 JACKET PREPARER, Duration: 30 day, Stop date: 10/05/20 0:46:00 JACKET PREPARER, 0 sennosides, 2019-10 No Notes: Jose Francisco zhang NURSING HOME 2- (Same as: l 06:47: Senokot) POLYETHYLEN 2019-10 No Notes: Jose Francisco zhang E GLYCOL - Dissolve l 3350 06:47: in 8 oz [...] Total Volume: 1,000, Start date: 09/05/20 0:47:00 JACKET PREPARER, Duration: 1 day, Stop date: 09/06/20 0:46:00 JACKET PREPARER, 1.97, m2, 0 Tums 2019-10 No Notes: [...] 0.65% 2- (Same as: l solution 06:47: [place], Raul 00 Deep Sea Nasal [place]). Tessalon 2019-10 No Notes: Memoria Perles 2-06 (Same As: l 06:47: Tessalon Perles) "Do Not Crush" Guaifenesin 2019-10 No Notes: Jose Francisco zhang 2-06 (Same as: l 06:47: Organidin [place] 00 NR) Blistex 2019-10 No Notes: Memoria topical 2- Same as: l ointment 06:47: Blistex Ajay n 00 Albuterol 2019-10 No Notes: SEE Me moria 0.83 MG/ML 2-06 RT l Inhalant 06:47: DOCUMENTAT Her ivory Solution 00 ION (Same as: Proventil) Dextrose 2019-10 No 12.5 gm, Memor ia 50% Syringe 2-06 25 mL, l (D50W) 06:47: Route: [place] 00 IVP, Drug Form: INJ, Dosing Weight 104.545, kg, PRN, PRN Blood Glucose Results, Start date: 09/05/20 0:47:00 JACKET PREPARER, Duration: 30 day, Stop date: 10/05/20 0:46:00 JACKET PREPARER, 0 Glucagon 2019-10 No 1 mg, Memoria 2-06 Route: IM, l 06:47: Drug form: PDR/INJ, PRN, Dosing Weight 104.545, kg, PRN Blood Glucose Results, Start date: 09/05/20 0:47:00 JACKET PREPARER, Duration: 30 day, Stop date: 10/05/20 0:46:00 JACKET PREPARER, 0 sennosides, 2019-10 No Notes: Jose Francisco zhang NURSING HOME 2-06 (Same as: l 06:47: Senokot) POLYETHYLEN [...] Total Volume: 1,000, Start date: 09/05/20 0:47:00 JACKET PREPARER, Duration: 1 day, Stop date: 09/06/20 0:46:00 JACKET PREPARER, 1.97, m2, 0 Tums 2019-10 No Notes: [...] 0.65% 2-06 (Same as: l solution 06:47: [place], Deep Sea Nasal [place]). Tessalon 2019-10 No Notes: Memoria Perles 2- [...] Blood Glucose Results, Start date: 09/05/20 0:47:00 JACKET PREPARER, Duration: 30 day, Stop date: 10/05/20 0:46:00 JACKET PREPARER, 0 Glucagon 2019-10 No 1 mg, Memoria 11-06 Route: IM, l 06:47: Drug form: PDR/INJ, PRN, Dosing Weight 104.545, kg, PRN Blood Glucose Results, Start date: 09/05/20 0:47:00 JACKET PREPARER, Duration: 30 day, Stop date: 10/05/20 0:46:00 JACKET PREPARER, 0 sennosides, 2019-10 No Notes: Jose Francisco zhang [facility]URSING HOME 2-06 (Same as: l 06:47: Senokot) POLYETHYLEN [...] Total Volume: 1,000, Start date: 09/05/20 0:47:00 JACKET PREPARER, Duration: 1 day, Stop date: 09/06/20 0:46:00 JACKET PREPARER, 1.97, m2, 0 Tums 2019-10 No Notes: [...] 0.65% 2- (Same as: l solution 06:47: [place], Raul 00 Deep Sea Nasal [place]). Tessalon 2019-10 No Notes: Memoria Perles 2-06 (Same As: l 06:47: Tessalon Perles) "Do Not Crush" Guaifenesin 2019-10 No Notes: Jose Francisco zhang 2-06 (Same as: l 06:47: Organidin [place] 00 NR) Blistex 2019-10 No Notes: Memoria topical 2-06 Same as: l ointment 06:47: Blistex Ajay n 00 Albuterol 2019-10 No Notes: SEE Me moria 0.83 MG/ML 2-06 RT l Inhalant 06:47: DOCUMENTAT Her ivory Solution 00 ION (Same as: Proventil) Dextrose 2019-10 No 12.5 gm, Memor ia 50% Syringe 2-06 25 mL, l (D50W) 06:47: Route: [place] 00 IVP, Drug Form: INJ, Dosing Weight 104.545, kg, PRN, PRN Blood Glucose Results, Start date: 09/05/20 0:47:00 JACKET PREPARER, Duration: 30 day, Stop date: 10/05/20 0:46:00 JACKET PREPARER, 0 Glucagon 2019-10 No 1 mg, Memoria 2-06 Route: IM, l 06:47: Drug form: Raul PDR/INJ, PRN, Dosing Weight 104.545, kg, PRN Blood Glucose Results, Start date: 09/05/20 0:47:00 JACKET PREPARER, Duration: 30 day, Stop date: 10/05/20 0:46:00 JACKET PREPARER, 0 sennosides, 2019-10 No Notes: Jose Francisco zhang [facility]URSING HOME 2-06 (Same as: l 06:47: Senokot) POLYETHYLEN [...] Total Volume: 1,000, Start date: 09/05/20 0:47:00 JACKET PREPARER, Duration: 1 day, Stop date: 09/06/20 0:46:00 JACKET PREPARER, 1.97, m2, 0 Tums 2019-10 No Notes: [...] 0.65% 2- (Same as: l solution 06:47: [place], [place] 00 Deep Sea Nasal [place]). Tessalon 2019-10 No Notes: Memoria Perles - [...] Blood Glucose Results, Start date: 09/05/20 0:47:00 JACKET PREPARER, Duration: 30 day, Stop date: 10/05/20 0:46:00 JACKET PREPARER, 0 Glucagon 2019-10 No 1 mg, Memoria 11-06 Route: IM, l 06:47: Drug form: Raul 00 PDR/INJ, PRN, Dosing Weight 104.545, kg, PRN Blood Glucose Results, Start date: 09/05/20 0:47:00 JACKET PREPARER, Duration: 30 day, Stop date: 10/05/20 0:46:00 JACKET PREPARER, 0 sennosides, 2019-10 No Notes: Jose Francisco zhang [facility]URSING HOME 2- (Same as: l 06:47: Senokot) POLYETHYLEN [...] a 2-06 (Same as: l 06:47: Melatonin) [place] 00 LR IV 1,000 2019-10 No 1,000 mL, Keesha emoria mL 2-06 Rate: 100 l 06:47: ml/hr, Infuse over: 10 hr, Route: IV, Dosing Weight 104.545 kg, Total Volume: 1,000, Start date: 09/05/20 0:47:00 JACKET PREPARER, Duration: 1 day, Stop date: 09/06/20 0:46:00 JACKET PREPARER, 1.97, m2, 0 Tums 2019-10 No Notes: [...] 0.65% 2- (Same as: l solution 06:47: [place], [place] 00 Deep Sea Nasal [place]). Tessalon 2019-10 No Notes: Memoria Perles 2-06 (Same As: l 06:47: Tessalon Perles) "Do Not Crush" Guaifenesin 2019-10 No Notes: Jose Francisco zhang 2-06 (Same as: l 06:47: Organidin [place] 00 NR) Blistex 2019-10 No Notes: Memoria [...] Blood Glucose Results, Start date: 09/05/20 0:47:00 JACKET PREPARER, Duration: 30 day, Stop date: 10/05/20 0:46:00 JACKET PREPARER, 0 Glucagon 2019-10 No 1 mg, Memoria 2-06 Route: IM, l 06:47: Drug form: [place] 00 PDR/INJ, PRN, Dosing Weight 104.545, kg, PRN Blood Glucose Results, Start date: 09/05/20 0:47:00 JACKET PREPARER, Duration: 30 day, Stop date: 10/05/20 0:46:00 JACKET PREPARER, 0 sennosides, 2019-10 No Notes: Jose Francisco zhang [facility]URSING HOME 2-06 (Same as: l 06:47: Senokot) POLYETHYLEN [...] Total Volume: 1,000, Start date: 09/05/20 0:47:00 JACKET PREPARER, Duration: 1 day, Stop date: 09/06/20 0:46:00 JACKET PREPARER, 1.97, m2, 0 Tums 2019-10 No Notes: [...] 0.65% 2- (Same as: l solution 06:47: [place], Raul 00 Deep Sea Nasal [place]). 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 date: 09/05/20 0:47:00 JACKET PREPARER, Duration: 30 day, Stop date: 10/05/20 0:46:00 JACKET PREPARER, 0 Glucagon 2019-10 No 1 mg, Memoria 11-06 Route: IM, l 06:47: Drug form: PDR/INJ, PRN, Dosing Weight 104.545, kg, PRN Blood Glucose Results, Start date: 09/05/20 0:47:00 JACKET PREPARER, Duration: 30 day, Stop date: 10/05/20 0:46:00 JACKET PREPARER, 0 sennosides, 2019-10 No Notes: Jose Francisco zhang [facility]URSING HOME 2-06 (Same as: l 06:47: Senokot) POLYETHYLEN [...] Total Volume: 1,000, Start date: 09/05/20 0:47:00 JACKET PREPARER, Duration: 1 day, Stop date: 09/06/20 0:46:00 JACKET PREPARER, 1.97, m2, 0 Tums 2019-10 No Notes: [...] 0.65% 2- (Same as: l solution 06:47: [place], Raul 00 Deep Sea Nasal [place]). Tessalon 2019-10 No Notes: Memoria Perles 2-06 [...] 2- 25 mL, l (D50W) 06:47: Route: Raul IVP, Drug Form: INJ, Dosing Weight 104.545, kg, PRN, PRN Blood Glucose Results, Start date: 09/05/20 0:47:00 JACKET PREPARER, Duration: 30 day, Stop date: 10/05/20 0:46:00 JACKET PREPARER, 0 Glucagon 2019-10 No 1 mg, Memoria 2-06 Route: IM, l 06:47: Drug form: PDR/INJ, PRN, Dosing Weight 104.545, kg, PRN Blood Glucose Results, Start date: 09/05/20 0:47:00 JACKET PREPARER, Duration: 30 day, Stop date: 10/05/20 0:46:00 JACKET PREPARER, 0 sennosides, 2019-10 No Notes: Jose Francisco zhang [facility]URSING HOME 2-06 (Same as: l 06:47: Senokot) POLYETHYLEN [...] Total Volume: 1,000, Start date: 09/05/20 0:47:00 JACKET PREPARER, Duration: 1 day, Stop date: 09/06/20 0:46:00 JACKET PREPARER, 1.97, m2, 0 Tums 2019-10 No Notes: [...] 0.65% 2- (Same as: l solution 06:47: [place], [place] 00 Deep Sea Nasal [place]). 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 date: 09/05/20 0:47:00 JACKET PREPARER, Duration: 30 day, Stop date: 10/05/20 0:46:00 JACKET PREPARER, 0 Glucagon 2019-10 No 1 mg, Memoria 11-06 Route: IM, l 06:47: Drug form: PDR/INJ, PRN, Dosing Weight 104.545, kg, PRN Blood Glucose Results, Start date: 09/05/20 0:47:00 JACKET PREPARER, Duration: 30 day, Stop date: 10/05/20 0:46:00 JACKET PREPARER, 0 sennosides, 2019-10 No Notes: Jose Francisco zhang [facility]URSING HOME 2-06 (Same as: l 06:47: Senokot) POLYETHYLEN [...] Total Volume: 1,000, Start date: 09/05/20 0:47:00 JACKET PREPARER, Duration: 1 day, Stop date: 09/06/20 0:46:00 JACKET PREPARER, 1.97, m2, 0 Tums 2019-10 No Notes: [...] 0.65% - (Same as: l solution 06:47: [place], [place] Deep Sea Nasal [place]). 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 date: 09/05/20 0:47:00 JACKET PREPARER, Duration: 30 day, Stop date: 10/05/20 0:46:00 JACKET PREPARER, 0 Glucagon 2019-10 No 1 mg, Memoria 2-06 Route: IM, l 06:47: Drug form: Raul 00 PDR/INJ, PRN, Dosing Weight 104.545, kg, PRN Blood Glucose Results, Start date: 09/05/20 0:47:00 JACKET PREPARER, Duration: 30 day, Stop date: 10/05/20 0:46:00 JACKET PREPARER, 0 sennosides, 2019-10 No Notes: Jose Francisco zhang [facility]SING HOME 2-06 (Same as: l 06:47: Senokot) POLYETHYLEN 2019-10 No Notes: Jose Francisco zhang E GLYCOL 2-06 Dissolve l 3350 06:47: in 8 oz of water or juice. (Same as: Miralax) Ondansetron 2019-10 No Notes: Jose Francisco zahng 2-06 (Same as: l 06:47: Zofran) MEDICATION WASTE Product Size: 4 mg Product Wasted: ___ mg Melatonin 2019-10 No Notes: Memori a 2-06 (Same as: l 06:47: Melatonin) LR IV 1,000 2019-10 No 1,000 mL, M emoria mL 2-06 Rate: 100 l 06:47: ml/hr, Infuse over: 10 hr, Route: IV, Dosing Weight 104.545 kg, Total Volume: 1,000, Start date: 09/05/20 0:47:00 JACKET PREPARER, Duration: 1 day, Stop date: 09/06/20 0:46:00 JACKET PREPARER, 1.97, m2, 0 Tums 2019-10 No Notes: [...] 0.65% 2-06 (Same as: l solution 06:47: [place], Deep Sea Nasal [place]). Tessalon 2019-10 No Notes: Memoria Perles 2-06 (Same As: l 06:47: Tessalon Perles) "Do Not Crush" Guaifenesin 2019-10 No Notes: Jose Francisco zhang 2-06 (Same as: l 06:47: Organidin NR) Dextrose 2019-10 No 12.5 gm, Memor ia 50% Syringe 2- 25 mL, l (D50W) 06:47: Route: IVP, Drug Form: INJ, Dosing Weight 104.545, kg, PRN, PRN Blood Glucose Results, Start date: 09/05/20 0:47:00 JACKET PREPARER, Duration: 30 day, Stop date: 10/05/20 0:46:00 JACKET PREPARER, 0 Glucagon 2019-10 No 1 mg, Memoria 11-06 Route: IM, l 06:47: Drug form: PDR/INJ, PRN, Dosing Weight 104.545, kg, PRN Blood Glucose Results, Start date: 09/05/20 0:47:00 JACKET PREPARER, Duration: 30 day, Stop date: 10/05/20 0:46:00 JACKET PREPARER, 0 sennosides, 2019-10 No Notes: Jose Francisco zhang [facility] 2-06 (Same as: l 06:47: Senokot) POLYETHYLEN [...] mL 2-06 Rate: 100 l 06:47: ml/hr, [place] 00 Infuse over: 10 hr, Route: IV, Dosing Weight 104.545 kg, Total Volume: 1,000, Start date: 09/05/20 0:47:00 JACKET PREPARER, Duration: 1 day, Stop date: 09/06/20 0:46:00 JACKET PREPARER, 1.97, m2, 0 Tums 2019-10 No Notes: [...] 0.65% 2-06 (Same as: l solution 06:47: [place], Raul 00 Deep Sea Nasal [place]). Tessalon 2019-10 No Notes: Memoria Perles 2-06 (Same As: l 06:47: Tessalon Raul 00 Perles) "Do Not Crush" Guaifenesin 2019-10 No Notes: Ojse Francisco zhang 2-06 (Same as: l 06:47: [...] Blood Glucose Results, Start date: 09/05/20 0:47:00 JACKET PREPARER, Duration: 30 day, Stop date: 10/05/20 0:46:00 JACKET PREPARER, 0 Glucagon 2019-10 No 1 mg, Memoria 2-06 Route: IM, l 06:47: Drug form: [place] 00 PDR/INJ, PRN, Dosing Weight 104.545, kg, PRN Blood Glucose Results, Start date: 09/05/20 0:47:00 JACKET PREPARER, Duration: 30 day, Stop date: 10/05/20 0:46:00 JACKET PREPARER, 0 sennosides, 2019-10 No Notes: Jose Francisco zhang NURSING HOME 2-06 (Same as: l 06:47: Senokot) POLYETHYLEN [...] Total Volume: 1,000, Start date: 09/05/20 0:47:00 JACKET PREPARER, Duration: 1 day, Stop date: 09/06/20 0:46:00 JACKET PREPARER, 1.97, m2, 0 Tums 2019-10 No Notes: [...] 0.65% 2-06 (Same as: l solution 06:47: [place], [place] 00 Deep Sea Nasal [place]). Tessalon 2019-10 No Notes: Memoria Perles 2-06 (Same As: l 06:47: Tessalon Raul 00 Perles) "Do Not Crush" Guaifenesin 2019-10 No Notes: Jose Francisco zhang 2-06 (Same as: l 06:47: Organidin [place] 00 NR) Blistex 2019-10 No Notes: Memoria topical 2-06 Same as: l ointment 06:47: Blistex Ajay n 00 Albuterol 2019-10 No Notes: SEE Me moria 0.83 MG/ML 2-06 RT l Inhalant 06:47: DOCUMENTAT Her ivory Solution 00 ION (Same as: Proventil) Hydralazine 2019-10 No Notes: Jose Francisco zhang 2-06 (Same as: l 06:45: Apresoline [place] 00 ) Push over 5 minutes Hydralazine 2019-10 No Notes: Jose Francisco zhang 2-06 (Same as: l 06:45: Apresoline [place] 00 ) Push over 5 minutes Hydralazine 2019-10 No Notes: Jose Francisco zhang 2-06 (Same as: l 06:45: Apresoline [place] 00 ) Push over 5 minutes Hydralazine 2019-10 No Notes: Jose Francisco zhang 2-06 (Same as: l 06:45: Apresoline [place] 00 ) Push over 5 minutes Hydralazine 2019-10 No Notes: Jose Francisco zhang 2-06 (Same as: l 06:45: Apresoline Raul 00 ) Push over 5 minutes Hydralazine 2019-10 No Notes: Jose Francisco zhang 2-06 (Same as: l 06:45: Apresoline Raul 00 ) Push over 5 minutes Hydralazine 2019-10 No Notes: Jose Francisco zhang 2-06 (Same as: l 06:45: Apresoline [place] 00 ) Push over 5 minutes Hydralazine 2019-10 No Notes: Jose Francisco zhang 2-06 (Same as: l 06:45: Apresoline [place] 00 ) Push over 5 minutes Hydralazine 2019-10 No Notes: Jose Francisco zhang 2-06 (Same as: l 06:45: Apresoline [place] 00 ) Push over 5 minutes Hydralazine 2019-10 No Notes: Jose Francisco zhang 2-06 (Same as: l 06:45: Apresoline [place] 00 ) Push over 5 minutes Hydralazine 2019-10 No Notes: Jose Francisco zahng 2-06 (Same as: l 06:45: Apresoline Raul 00 ) Push over 5 minutes Hydralazine 2019-10 No Notes: Jose Francisco zhang 2-06 (Same as: l 06:45: Apresoline [place] 00 ) Push over 5 minutes Hydralazine 2019-10 No Notes: Jose Francisco zhang 2-06 (Same as: l 06:45: Apresoline [place] 00 ) Push over 5 minutes Hydralazine 2019-10 No Notes: Jose Francisco zhang 2-06 (Same as: l 06:45: Apresoline [place] 00 ) Push over 5 minutes Acetaminoph 2019-10 No 1 tab, Jose Francisco zhang en 325 MG / 2-06 Route: PO, l Hydrocodone 04:07: Drug Form: [place] Bitartrate 00 TAB, 5 MG Oral Dosing Tablet Weight 104.545, kg, ONCE, STAT, Start date: 09/04/20 22:07:00 JACKET PREPARER, Stop date: 09/04/20 22:07:00 JACKET PREPARER Acetaminoph 2019-10 No 1 tab, Jose Francisco zhang en 325 MG / 2-06 Route: PO, l Hydrocodone 04:07: Drug Form: Raul Bitartrate 00 TAB, 5 MG Oral Dosing Tablet Weight 104.545, kg, ONCE, STAT, Start date: 09/04/20 22:07:00 JACKET PREPARER, Stop date: 09/04/20 22:07:00 JACKET PREPARER Acetaminoph 2019-10 No 1 tab, Jose Francisco zhang en 325 MG / 2-06 Route: PO, l Hydrocodone 04:07: Drug Form: [place] Bitartrate 00 TAB, 5 MG Oral Dosing Tablet Weight 104.545, kg, ONCE, STAT, Start date: 09/04/20 22:07:00 JACKET PREPARER, Stop date: 09/04/20 22:07:00 JACKET PREPARER Acetaminoph 2019-10 No 1 tab, Jose Francisco zhang en 325 MG / 2-06 Route: PO, l Hydrocodone 04:07: Drug Form: [place] Bitartrate 00 TAB, 5 MG Oral Dosing Tablet Weight 104.545, kg, ONCE, STAT, Start date: 09/04/20 22:07:00 JACKET PREPARER, Stop date: 09/04/20 22:07:00 JACKET PREPARER Acetaminoph 2019-10 No 1 tab, Jose Francisco zhang en 325 MG / 2-06 Route: PO, l Hydrocodone 04:07: Drug Form: [place] Bitartrate 00 TAB, 5 MG Oral Dosing Tablet Weight 104.545, kg, ONCE, STAT, Start date: 09/04/20 22:07:00 JACKET PREPARER, Stop date: 09/04/20 22:07:00 JACKET PREPARER Acetaminoph 2019-10 No 1 tab, Jose Francisco zhang en 325 MG / 2-06 Route: PO, l Hydrocodone 04:07: Drug Form: Raul Bitartrate 00 TAB, 5 MG Oral Dosing Tablet Weight 104.545, kg, ONCE, STAT, Start date: 09/04/20 22:07:00 JACKET PREPARER, Stop date: 09/04/20 22:07:00 JACKET PREPARER Acetaminoph 2019-10 No 1 tab, Jose Francisco zhang en 325 MG / 2-06 Route: PO, l Hydrocodone 04:07: Drug Form: [place] Bitartrate 00 TAB, 5 MG Oral Dosing Tablet Weight 104.545, kg, ONCE, STAT, Start date: 09/04/20 22:07:00 JACKET PREPARER, Stop date: 09/04/20 22:07:00 JACKET PREPARER Acetaminoph 2019-10 No 1 tab, Jose Francisco zhang en 325 MG / 2-06 Route: PO, l Hydrocodone 04:07: Drug Form: Raul Bitartrate 00 TAB, 5 MG Oral Dosing Tablet Weight 104.545, kg, ONCE, STAT, Start date: 09/04/20 22:07:00 JACKET PREPARER, Stop date: 09/04/20 22:07:00 JACKET PREPARER Acetaminoph 2019-10 No 1 tab, Jose Francisco zhang en 325 MG / 2-06 Route: PO, l Hydrocodone 04:07: Drug Form: [place] Bitartrate 00 TAB, 5 MG Oral Dosing Tablet Weight 104.545, kg, ONCE, STAT, Start date: 09/04/20 22:07:00 JACKET PREPARER, Stop date: 09/04/20 22:07:00 JACKET PREPARER Acetaminoph 2019-10 No 1 tab, Jose Francisco zhang en 325 MG / 2-06 Route: PO, l Hydrocodone 04:07: Drug Form: Raul Bitartrate 00 TAB, 5 MG Oral Dosing Tablet Weight 104.545, kg, ONCE, STAT, Start date: 09/04/20 22:07:00 JACKET PREPARER, Stop date: 09/04/20 22:07:00 JACKET PREPARER Acetaminoph 2019-10 No 1 tab, Jose Francisco zhang en 325 MG / 2-06 Route: PO, l Hydrocodone 04:07: Drug Form: Raul Bitartrate 00 TAB, 5 MG Oral Dosing Tablet Weight 104.545, kg, ONCE, STAT, Start date: 09/04/20 22:07:00 JACKET PREPARER, Stop date: 09/04/20 22:07:00 JACKET PREPARER Acetaminoph 2019-10 No 1 tab, Jose Francisco zhang en 325 MG / 2-06 Route: PO, l Hydrocodone 04:07: Drug Form: Raul Bitartrate 00 TAB, 5 MG Oral Dosing Tablet Weight 104.545, kg, ONCE, STAT, Start date: 09/04/20 22:07:00 JACKET PREPARER, Stop date: 09/04/20 22:07:00 JACKET PREPARER Acetaminoph 2019-10 No 1 tab, Jose Francisco zhang en 325 MG / 2-06 Route: PO, l Hydrocodone 04:07: Drug Form: [place] Bitartrate 00 TAB, 5 MG Oral Dosing Tablet Weight 104.545, kg, ONCE, STAT, Start date: 09/04/20 22:07:00 JACKET PREPARER, Stop date: 09/04/20 22:07:00 JACKET PREPARER Acetaminoph 2019-10 No 1 tab, Jose Francisco zhang en 325 MG / 2-06 Route: PO, l Hydrocodone 04:07: Drug Form: [place] Bitartrate 00 TAB, 5 MG Oral Dosing Tablet Weight 104.545, kg, ONCE, STAT, Start date: 09/04/20 22:07:00 JACKET PREPARER, Stop date: 09/04/20 22:07:00 JACKET PREPARER HYDROcodone 2019-0 2020- No 1{tbl} 1 tablet, [facility] -acetaminop 06-28 Oral, ity of hen (NORCO 20:30: 19:23 ONCE, 1 Carlos as 5) 5-325 mg 00 :00 dose, Mon Med ical tablet 1 06/28/20 at [facility] h tablet 1530, DIMITRIS metoprolol 2020- No 50mg 50 mg, Univ ers [...] hours as needed. ALBUTEROL 2019-0 [facility] [...] rs SULFATE 9-28 ity of INHALE 12:14: [place] [facility] diphenoxyla 2020-0 Yes 1{tbl} Take 1 Un martha te-atropine 9-28 tablet by ity of (LOMOTIL) 12:14: mouth [place] 2.5-0.025 43 every 6 Medical mg tablet (six) Branch hours as needed. ALBUTEROL 2020-0 Yes Inhale. Unive rs SULFATE 9-28 ity of INHALE 12:14: [place] [id number] [facility] acetaminoph 2020-0 Yes 4647 1{tbl} [...] Jessie nn 00 tab, 3 Refill(s), Pharmacy: [facility] #[id number], 149.86, cm, 05/25/20 13:41:00 CDT, Height, 95.455, kg, 05/25/20 13:41:00 CDT, Weight primidone 2020-0 Yes 50 mg = 1 Mem oria 50 mg oral 8-25 tab, PO, l tablet 19:03: BID, # 180 Jessie nn 00 tab, 3 Refill(s), Pharmacy: [id number], 149.86, cm, 05/25/20 13:41:00 CDT, Height, 95.455, kg, 05/25/20 13:41:00 CDT, Weight primidone 2020-0 Yes 50 mg = 1 Mem oria 50 mg oral 8-25 tab, PO, l tablet 19:03: BID, # 180 Jessie nn 00 tab, 3 Refill(s), Pharmacy: [id number], 149.86, cm, 05/25/20 13:41:00 CDT, Height, 95.455, kg, 05/25/20 13:41:00 CDT, Weight primidone 2020-0 Yes 50 mg = 1 Mem oria 50 mg oral 8-25 tab, PO, l tablet 19:03: BID, # 180 Jessie nn 00 tab, 3 Refill(s), Pharmacy: [id number], 149.86, cm, 05/25/20 13:41:00 CDT, Height, 95.455, kg, 05/25/20 13:41:00 CDT, Weight primidone 2020-0 Yes 50 mg = 1 Mem oria 50 mg oral 8-25 tab, PO, l tablet 19:03: BID, # 180 Jessie nn 00 tab, 3 Refill(s), Pharmacy: [facility] #[id number], 149.86, cm, 05/25/20 13:41:00 CDT, Height, 95.455, kg, 05/25/20 13:41:00 CDT, Weight primidone 2020-0 Yes 50 mg = 1 Mem oria 50 mg oral 8-25 tab, PO, l tablet 19:03: BID, # 180 Jessie nn 00 tab, 3 Refill(s), Pharmacy: [facility] #[id number], 149.86, cm, 05/25/20 13:41:00 CDT, Height, 95.455, kg, 05/25/20 13:41:00 CDT, Weight primidone 2020-0 Yes 50 mg = 1 Mem oria 50 mg oral 8-25 tab, PO, l tablet 19:03: BID, # 180 Jessie nn 00 tab, 3 Refill(s), Pharmacy: [facility] #[id number], 149.86, cm, 05/25/20 13:41:00 CDT, Height, 95.455, kg, 05/25/20 13:41:00 CDT, Weight primidone 2020-0 Yes 50 mg = 1 Mem oria 50 mg oral 8-25 tab, PO, l tablet 19:03: BID, # 180 Jessie nn 00 tab, 3 Refill(s), Pharmacy: [facility] #[id number], 149.86, cm, 05/25/20 13:41:00 CDT, Height, 95.455, kg, 05/25/20 13:41:00 CDT, Weight primidone 2020-0 Yes 50 mg = 1 Mem oria 50 mg oral 8-25 tab, PO, l tablet 19:03: BID, # 180 Jessie nn 00 tab, 3 Refill(s), Pharmacy: [facility] #[id number], 149.86, cm, 05/25/20 13:41:00 CDT, Height, 95.455, kg, 05/25/20 13:41:00 CDT, Weight primidone 2020-0 Yes 50 mg = 1 Mem oria 50 mg oral 8-25 tab, PO, l tablet 19:03: BID, # 180 Jessie nn 00 tab, 3 Refill(s), Pharmacy: [facility] #[id number], 149.86, cm, 05/25/20 13:41:00 CDT, Height, 95.455, kg, 05/25/20 13:41:00 CDT, Weight primidone 2020-0 Yes 50 mg = 1 Mem oria 50 mg oral 8-25 tab, PO, l tablet 19:03: BID, # 180 Jessie nn 00 tab, 3 Refill(s), Pharmacy: [facility] #[id number], 149.86, cm, 05/25/20 13:41:00 CDT, Height, 95.455, kg, 05/25/20 13:41:00 CDT, Weight primidone 2020-0 Yes 50 mg = 1 Mem oria 50 mg oral 8-25 tab, PO, l tablet 19:03: BID, # 180 Jessie nn 00 tab, 3 Refill(s), Pharmacy: [facility] #[id number], 149.86, cm, 05/25/20 13:41:00 CDT, Height, 95.455, kg, 05/25/20 13:41:00 CDT, Weight primidone 2020-0 Yes 50 mg = 1 Mem oria 50 mg oral 8-25 tab, PO, l tablet 19:03: BID, # 180 Jessie nn 00 tab, 3 Refill(s), Pharmacy: [facility] #[id number], 149.86, cm, 05/25/20 13:41:00 CDT, Height, 95.455, kg, 05/25/20 13:41:00 CDT, Weight primidone 2020-0 Yes 50 mg = 1 Mem oria 50 mg oral 8-25 tab, PO, l tablet 19:03: BID, # 180 Jessie nn 00 tab, 3 Refill(s), Pharmacy: [facility] #[id number], 149.86, cm, 05/25/20 13:41:00 CDT, Height, 95.455, kg, 05/25/20 13:41:00 CDT, Weight primidone 2020-0 No 50 mg = 1 Mem oria 50 mg oral 6-25 tab, PO, l tablet 13:48: Bedtime, # Jessie nn 00 90 tab, 3 Refill(s), Pharmacy: [facility] #[id number], 149.86, cm, 03/24/20 9:12:00 CDT, Height, 90.909, kg, 03/24/20 9:12:00 CDT, Weight primidone 2020-0 No 50 mg = 1 Mem oria 50 mg oral 6-25 tab, PO, l tablet 13:48: Bedtime, # Jessie nn 00 90 tab, 3 Refill(s), Pharmacy: [facility] #[id number], 149.86, cm, 03/24/20 9:12:00 CDT, Height, 90.909, kg, 03/24/20 9:12:00 CDT, Weight primidone 2020-0 No 50 mg = 1 Mem oria 50 mg oral 6-25 tab, PO, l tablet 13:48: Bedtime, # Jessie nn 00 90 tab, 3 Refill(s), Pharmacy: [facility] #[id number], 149.86, cm, 03/24/20 9:12:00 CDT, Height, 90.909, kg, 03/24/20 9:12:00 CDT, Weight primidone 2020-0 No 50 mg = 1 Mem oria 50 mg oral 6-25 tab, PO, l tablet 13:48: Bedtime, # Jessie nn 00 90 tab, 3 Refill(s), Pharmacy: [facility] #[id number], 149.86, cm, 03/24/20 9:12:00 CDT, Height, 90.909, kg, 03/24/20 9:12:00 CDT, Weight primidone 2020-0 No 50 mg = 1 Mem oria 50 mg oral 6-25 tab, PO, l tablet 13:48: Bedtime, # Jessie nn 00 90 tab, 3 Refill(s), Pharmacy: [facility] #[id number], 149.86, cm, 03/24/20 9:12:00 CDT, Height, 90.909, kg, 03/24/20 9:12:00 CDT, Weight primidone 2020-0 No 50 mg = 1 Mem oria 50 mg oral 6-25 tab, PO, l tablet 13:48: Bedtime, # Jessie nn 00 90 tab, 3 Refill(s), Pharmacy: [facility] #[id number], 149.86, cm, 03/24/20 9:12:00 CDT, Height, 90.909, kg, 03/24/20 9:12:00 CDT, Weight primidone 2020-0 No 50 mg = 1 Mem oria 50 mg oral 6-25 tab, PO, l tablet 13:48: Bedtime, # Jessie nn 00 90 tab, 3 Refill(s), Pharmacy: [facility] #[id number], 149.86, cm, 03/24/20 9:12:00 CDT, Height, 90.909, kg, 03/24/20 9:12:00 CDT, Weight primidone 2020-0 No 50 mg = 1 Mem oria 50 mg oral 6-25 tab, PO, l tablet 13:48: Bedtime, # Jessie nn 00 90 tab, 3 Refill(s), Pharmacy: [facility] #[id number], 149.86, cm, 03/24/20 9:12:00 CDT, Height, 90.909, kg, 03/24/20 9:12:00 CDT, Weight primidone 2020-0 No 50 mg = 1 Mem oria 50 mg oral 6-25 tab, PO, l tablet 13:48: Bedtime, # Jessie nn 00 90 tab, 3 Refill(s), Pharmacy: [facility] #[id number], 149.86, cm, 03/24/20 9:12:00 CDT, Height, 90.909, kg, 03/24/20 9:12:00 CDT, Weight primidone 2020-0 No 50 mg = 1 Mem oria 50 mg oral 6-25 tab, PO, l tablet 13:48: Bedtime, # Jessie nn 00 90 tab, 3 Refill(s), Pharmacy: [facility] #[id number], 149.86, cm, 03/24/20 9:12:00 CDT, Height, 90.909, kg, 03/24/20 9:12:00 CDT, Weight primidone 2020-0 No 50 mg = 1 Mem oria 50 mg oral 6-25 tab, PO, l tablet 13:48: Bedtime, # Jessie nn 00 90 tab, 3 Refill(s), Pharmacy: [facility] #[id number], 149.86, cm, 03/24/20 9:12:00 CDT, Height, 90.909, kg, 03/24/20 9:12:00 CDT, Weight primidone 2020-0 No 50 mg = 1 Mem oria 50 mg oral 6-25 tab, PO, l tablet 13:48: Bedtime, # Jsesie nn 00 90 tab, 3 Refill(s), Pharmacy: [facility] #[id number], 149.86, cm, 03/24/20 9:12:00 CDT, Height, 90.909, kg, 03/24/20 9:12:00 CDT, Weight primidone 2020-0 No 50 mg = 1 Mem oria 50 mg oral 6-25 tab, PO, l tablet 13:48: Bedtime, # Jessie nn 00 90 tab, 3 Refill(s), Pharmacy: [facility] #[id number], 149.86, cm, 03/24/20 9:12:00 CDT, Height, 90.909, kg, 03/24/20 9:12:00 CDT, Weight primidone 2020-0 No 50 mg = 1 Mem oria 50 mg oral 6-25 tab, PO, l tablet 13:48: Bedtime, # Jessie nn 00 90 tab, 3 Refill(s), Pharmacy: [facility] #[id number], 149.86, cm, 03/24/20 9:12:00 CDT, Height, 90.909, kg, 03/24/20 9:12:00 CDT, Weight donepezil 2020-0 Yes 10 mg = 1 Mem oria 10 mg oral 6-24 tab, PO, l tablet 14:32: Daily, # [place] 00 30 tab, 3 Refill(s), Pharmacy: [facility] #[id number], 149.86, cm, 03/24/20 9:12:00 CDT, Height, 90.909, kg, 03/24/20 9:12:00 CDT, Weight primidone 2020-0 No 50 mg = 1 Mem oria 50 mg oral 6-24 tab, PO, l tablet 14:32: Bedtime, X Jessie nn 00 30 day, # 30 tab, 3 Refill(s), Pharmacy: [facility] #[id number], 149.86, cm, 03/24/20 9:12:00 CDT, Height, 90.909, kg, 03/24/20 9:12:00 CDT, Weight donepezil 2020-0 Yes 10 mg = 1 Mem oria 10 mg oral 6-24 tab, PO, l tablet 14:32: Daily, # [place] 00 30 tab, 3 Refill(s), Pharmacy: [facility] #[id number], 149.86, cm, 03/24/20 9:12:00 CDT, Height, 90.909, kg, 03/24/20 9:12:00 CDT, Weight primidone 2020-0 No 50 mg = 1 Mem oria 50 mg oral 6-24 tab, PO, l tablet 14:32: Bedtime, X Jessie nn day, # 30 tab, 3 Refill(s), Pharmacy: [facility] #[id number], 149.86, cm, 03/24/20 9:12:00 CDT, Height, 90.909, kg, 03/24/20 9:12:00 CDT, Weight donepezil 2020-0 Yes 10 mg = 1 Mem oria 10 mg oral 6-24 tab, PO, l tablet 14:32: Daily, # Raul 00 30 tab, 3 Refill(s), Pharmacy: [facility] #[id number], 149.86, cm, 03/24/20 9:12:00 CDT, Height, 90.909, kg, 03/24/20 9:12:00 CDT, Weight primidone 2020-0 No 50 mg = 1 Mem oria 50 mg oral 6-24 tab, PO, l tablet 14:32: Bedtime, X Jessie nn 30 day, # 30 tab, 3 Refill(s), Pharmacy: [facility] #[id number], 149.86, cm, 03/24/20 9:12:00 CDT, Height, 90.909, kg, 03/24/20 9:12:00 CDT, Weight donepezil 2020-0 Yes 10 mg = 1 Mem oria 10 mg oral 6-24 tab, PO, l tablet 14:32: Daily, # Raul 00 30 tab, 3 Refill(s), Pharmacy: [facility] #[id number], 149.86, cm, 03/24/20 9:12:00 CDT, Height, 90.909, kg, 03/24/20 9:12:00 CDT, Weight primidone 2020-0 No 50 mg = 1 Mem oria 50 mg oral 6-24 tab, PO, l tablet 14:32: Bedtime, X Jessie nn day, # 30 tab, 3 Refill(s), Pharmacy: [facility] #[id number], 149.86, cm, 03/24/20 9:12:00 CDT, Height, 90.909, kg, 03/24/20 9:12:00 CDT, Weight donepezil 2020-0 Yes 10 mg = 1 Mem oria 10 mg oral 6-24 tab, PO, l tablet 14:32: Daily, # [place] 00 30 tab, 3 Refill(s), Pharmacy: [facility] #[id number], 149.86, cm, 03/24/20 9:12:00 CDT, Height, 90.909, kg, 03/24/20 9:12:00 CDT, Weight primidone 2020-0 No 50 mg = 1 Mem oria 50 mg oral 6-24 tab, PO, l tablet 14:32: Bedtime, X Jessie nn day, # 30 tab, 3 Refill(s), Pharmacy: [facility] #[id number], 149.86, cm, 03/24/20 9:12:00 CDT, Height, 90.909, kg, 03/24/20 9:12:00 CDT, Weight donepezil 2020-0 Yes 10 mg = 1 Mem oria 10 mg oral 6-24 tab, PO, l tablet 14:32: Daily, # [place] 00 30 tab, 3 Refill(s), Pharmacy: [facility] #[id number], 149.86, cm, 03/24/20 9:12:00 CDT, Height, 90.909, kg, 03/24/20 9:12:00 CDT, Weight primidone 2020-0 No 50 mg = 1 Mem oria 50 mg oral 6-24 tab, PO, l tablet 14:32: Bedtime, X Jessie nn 30 day, # 30 tab, 3 Refill(s), Pharmacy: [facility] #[id number], 149.86, cm, 03/24/20 9:12:00 CDT, Height, 90.909, kg, 03/24/20 9:12:00 CDT, Weight donepezil 2020-0 Yes 10 mg = 1 Mem oria 10 mg oral 6-24 tab, PO, l tablet 14:32: Daily, # [place] 00 30 tab, 3 Refill(s), Pharmacy: [facility] #[id number], 149.86, cm, 03/24/20 9:12:00 CDT, Height, 90.909, kg, 03/24/20 9:12:00 CDT, Weight primidone 2020-0 No 50 mg = 1 Mem oria 50 mg oral 6-24 tab, PO, l tablet 14:32: Bedtime, X Jessie nn 30 day, # 30 tab, 3 Refill(s), Pharmacy: [facility] #[id number], 149.86, cm, 03/24/20 9:12:00 CDT, Height, 90.909, kg, 03/24/20 9:12:00 CDT, Weight donepezil 2020-0 Yes 10 mg = 1 Mem oria 10 mg oral 6-24 tab, PO, l tablet 14:32: Daily, # [place] 00 30 tab, 3 Refill(s), Pharmacy: [facility] #[id number], 149.86, cm, 03/24/20 9:12:00 CDT, Height, 90.909, kg, 03/24/20 9:12:00 CDT, Weight primidone 2020-0 No 50 mg = 1 Mem oria 50 mg oral 6-24 tab, PO, l tablet 14:32: Bedtime, X Jessie nn 30 day, # 30 tab, 3 Refill(s), Pharmacy: [facility] #[id number], 149.86, cm, 03/24/20 9:12:00 CDT, Height, 90.909, kg, 03/24/20 9:12:00 CDT, Weight donepezil 2020-0 Yes 10 mg = 1 Mem oria 10 mg oral 6-24 tab, PO, l tablet 14:32: Daily, # [place] 00 30 tab, 3 Refill(s), Pharmacy: [facility] #[id number], 149.86, cm, 03/24/20 9:12:00 CDT, Height, 90.909, kg, 03/24/20 9:12:00 CDT, Weight primidone 2020-0 No 50 mg = 1 Mem oria 50 mg oral 6-24 tab, PO, l tablet 14:32: Bedtime, X Jessie nn 30 day, # 30 tab, 3 Refill(s), Pharmacy: [facility] #[id number], 149.86, cm, 03/24/20 9:12:00 CDT, Height, 90.909, kg, 03/24/20 9:12:00 CDT, Weight donepezil 2020-0 Yes 10 mg = 1 Mem oria 10 mg oral 6-24 tab, PO, l tablet 14:32: Daily, # Raul 00 30 tab, 3 Refill(s), Pharmacy: [facility] #[id number], 149.86, cm, 03/24/20 9:12:00 CDT, Height, 90.909, kg, 03/24/20 9:12:00 CDT, Weight primidone 2020-0 No 50 mg = 1 Mem oria 50 mg oral 6-24 tab, PO, l tablet 14:32: Bedtime, X Jessie nn 30 day, # 30 tab, 3 Refill(s), Pharmacy: [facility] #[id number], 149.86, cm, 03/24/20 9:12:00 CDT, Height, 90.909, kg, 03/24/20 9:12:00 CDT, Weight donepezil 2020-0 Yes 10 mg = 1 Mem oria 10 mg oral 6-24 tab, PO, l tablet 14:32: Daily, # [place] 00 30 tab, 3 Refill(s), Pharmacy: [facility] #[id number], 149.86, cm, 03/24/20 9:12:00 CDT, Height, 90.909, kg, 03/24/20 9:12:00 CDT, Weight primidone 2020-0 No 50 mg = 1 Mem oria 50 mg oral 6-24 tab, PO, l tablet 14:32: Bedtime, X Jessie nn 30 day, # 30 tab, 3 Refill(s), Pharmacy: [facility] #[id number], 149.86, cm, 03/24/20 9:12:00 CDT, Height, 90.909, kg, 03/24/20 9:12:00 CDT, Weight donepezil 2020-0 Yes 10 mg = 1 Mem oria 10 mg oral 6-24 tab, PO, l tablet 14:32: Daily, # [place] 00 30 tab, 3 Refill(s), Pharmacy: [facility] #[id number], 149.86, cm, 03/24/20 9:12:00 CDT, Height, 90.909, kg, 03/24/20 9:12:00 CDT, Weight primidone 2020-0 No 50 mg = 1 Mem oria 50 mg oral 6-24 tab, PO, l tablet 14:32: Bedtime, X Jessie nn 30 day, # 30 tab, 3 Refill(s), Pharmacy: [facility] #[id number], 149.86, cm, 03/24/20 9:12:00 CDT, Height, 90.909, kg, 03/24/20 9:12:00 CDT, Weight donepezil 2020-0 Yes 10 mg = 1 Mem oria 10 mg oral 6-24 tab, PO, l tablet 14:32: Daily, # Raul 00 30 tab, 3 Refill(s), Pharmacy: [facility] #[id number], 149.86, cm, 03/24/20 9:12:00 CDT, Height, 90.909, kg, 03/24/20 9:12:00 CDT, Weight primidone 2020-0 No 50 mg = 1 Mem oria 50 mg oral 6-24 tab, PO, l tablet 14:32: Bedtime, X Jessie nn 30 day, # 30 tab, 3 Refill(s), Pharmacy: [facility] #[id number], 149.86, cm, 03/24/20 9:12:00 CDT, Height, 90.909, kg, 03/24/20 9:12:00 CDT, Weight donepezil 2020-0 Yes 10 mg = 1 Mem oria 10 mg oral 6-24 tab, PO, l tablet 14:32: Daily, # [place] 00 30 tab, 3 Refill(s), Pharmacy: [facility] #[id number], 149.86, cm, 03/24/20 9:12:00 CDT, Height, 90.909, kg, 03/24/20 9:12:00 CDT, Weight primidone No 50 mg = 1 Mem oria 50 mg oral 6-24 tab, PO, l tablet 14:32: Bedtime, X Jessie nn 30 day, # 30 tab, 3 Refill(s), Pharmacy: [facility] #[id number], 149.86, cm, 03/24/20 9:12:00 CDT, Height, 90.909, kg, 03/24/20 9:12:00 CDT, Weight sucralfate Yes [id number][in_ Apply 0.25 [facility], 5-21 us] Inches as ity of polymerized 00:00: directed 4 [place] 1 gram/10 00 (four) Medical mL Pste times Branch daily as needed for Pain (scale 1-3). sucralfate 2019- No [id number][in_ Apply 0.25 [facility], 5- 09-28 us] Inches as ity of polymerized 00:00: 00:00 directed 4 [place] 1 gram/10 00 :00 (four) Medical mL [...] Tablet 20:22: Bedtime, # Jessie nn [Topamax] 30 tab, 3 Refill(s) topiramate 2019- No [...] 7-26 MISC, l 21:45: Daily, # 1 [place] 00 ea, 0 Refill(s) Walker 2018-0 Yes 1 ea, Memoria 7-26 MISC, l 21:45: Daily, # 1 [place] 00 ea, 0 Refill(s) Walker 2018-0 Yes [...] 7-26 MISC, l 21:45: Daily, # 1 [place] 00 ea, 0 Refill(s) Walker 2019-0 Yes 1 ea, Memoria 7-26 MISC, l 21:45: Daily, # 1 [place] 00 ea, 0 Refill(s) Walker 2018-0 Yes 1 ea, Memoria 7-26 MISC, l 21:45: Daily, # 1 Raul 00 ea, 0 Refill(s) Adult 2019-0 Yes 81 mg = 1 Memoria Aspirin 81 6-21 tab, CHEW, l mg oral 20:18: Daily, # Ajay n tablet, 00 30 tab, 3 chewable Refill(s), Pharmacy: [facility] #[id number] Adult Yes 81 mg = 1 Memoria Aspirin 81 6-21 tab, CHEW, l mg oral 20:18: Daily, # Ajay n tablet, 00 30 tab, 3 chewable Refill(s), Pharmacy: [facility] #[id number] Adult Yes 81 mg = 1 Memoria Aspirin 81 6-21 tab, CHEW, l mg oral 20:18: Daily, # Ajay n tablet, 00 30 tab, 3 chewable Refill(s), Pharmacy: [facility] #[id number] Adult Yes 81 mg = 1 Memoria Aspirin 81 6-21 tab, CHEW, l mg oral 20:18: Daily, # Ajay n tablet, 00 30 tab, 3 chewable Refill(s), Pharmacy: [facility] #[id number] Adult Yes 81 mg = 1 Memoria Aspirin 81 6-21 tab, CHEW, l mg oral 20:18: Daily, # Ajay n tablet, 00 30 tab, 3 chewable Refill(s), Pharmacy: [facility] #[id number] Adult 2019 Yes 81 mg = 1 Memoria Aspirin 81 6-21 tab, CHEW, l mg oral 20:18: Daily, # Ajay n tablet, 00 30 tab, 3 chewable Refill(s), Pharmacy: [facility] #[id number] Adult [id number] Yes 81 mg = 1 Memoria Aspirin 81 6-21 tab, CHEW, l mg oral 20:18: Daily, # Ajay n tablet, 00 30 tab, 3 chewable Refill(s), Pharmacy: [facility] #[id number] Adult 2019 Yes 81 mg = 1 Memoria Aspirin 81 6-21 tab, CHEW, l mg oral 20:18: Daily, # Ajay n tablet, 00 30 tab, 3 chewable Refill(s), [id number] 2019-0 Yes 81 mg = 1 Memoria Aspirin 81 6-21 tab, CHEW, l mg oral 20:18: Daily, # Ajay n tablet, 00 30 tab, 3 chewable Refill(s), [id number] Adult 2019-0 Yes 81 mg = 1 Memoria Aspirin 81 6-21 tab, CHEW, l mg oral 20:18: Daily, # Ajay n tablet, 00 30 tab, 3 chewable Refill(s), [id number] Adult 2019-0 Yes 81 mg = 1 [facility] Aspirin 81 6-21 tab, CHEW, l mg oral 20:18: Daily, # Ajay n tablet, 00 30 tab, 3 chewable Refill(s), [id number] Adult 2019-0 Yes 81 mg = 1 Memoria Aspirin 81 6-21 tab, CHEW, l mg oral 20:18: Daily, # Ajay n tablet, 00 30 tab, 3 chewable Refill(s), [id number] Adult 2019-0 Yes 81 mg = 1 Memoria Aspirin 81 6-21 tab, CHEW, l mg oral 20:18: Daily, # Ajay n tablet, 00 30 tab, 3 chewable Refill(s), [id number] Adult 2019-0 Yes 81 mg = 1 Memoria Aspirin 81 6-21 tab, CHEW, l mg oral 20:18: Daily, # Ajay n tablet, 00 30 tab, 3 chewable Refill(s), [id number] levothyroxi 2018- Yes 125 Memori a ne 125 mcg 5-24 microgram l (0.125 mg) 20:29: = 1 tab, Her [place] oral tablet 00 PO, Daily, # 30 tab, 0 Refill(s) gabapentin 2018-0 Yes 300 mg = 1 M emoria [...] Carter 00 90 tab, 0 Refill(s) Atropine 2019 [...] tab, PO, l tablet 20:06: BID, 0 [place] 00 Refill(s) lisinopril 2019 Yes 40 mg = 1 Me moria 40 mg oral 5-24 tab, PO, l tablet 20:06: Daily, # [place] 00 30 tab, 0 Refill(s) donepezil 2019 Yes 10 mg = 1 Mem oria 10 mg oral 5-24 tab, PO, l tablet 20:06: Daily, # Raul 00 30 tab, 0 Refill(s) metoprolol Yes 50 mg = [...] tab, PO, l tablet 20:06: Daily, # [place] 00 30 tab, 0 Refill(s) ProAir HFA 2019 Yes 1 - 2 Memori a 5-24 puffs, PO, l 20:06: Q4H, PRN Raul 00 Wheezing / cough / shortness of breath, # 1 ea, 0 Refill(s) donepezil Yes 10 mg = 1 Mem oria 10 mg oral 5-24 tab, PO, l tablet 20:06: Daily, # [place] 00 30 tab, 0 Refill(s) ProAir HFA Yes 1 - 2 Memori a 5-24 puffs, PO, l 20:06: Q4H, PRN [place] 00 Wheezing / cough / shortness of [...] tab, PO, l tablet 20:06: Daily, # [place] 00 30 tab, 0 Refill(s) donepezil 2019 Yes 10 mg = 1 Mem oria 10 mg oral 5-24 tab, PO, l tablet 20:06: Daily, # Raul 00 30 tab, 0 Refill(s) ProAir HFA Yes 1 - 2 Memori a 5-24 puffs, PO, l 20:06: Q4H, PRN [place] 00 Wheezing / cough / shortness of [...] tab, PO, l tablet 20:06: Daily, # [place] 00 90 tab, 0 Refill(s) Atropine 2019- [...] tab, PO, l tablet 20:06: Daily, # [place] 00 30 tab, 0 Refill(s) donepezil Yes 10 mg = 1 Mem oria 10 mg oral 5-24 tab, PO, l tablet 20:06: Daily, # [place] 00 30 tab, 0 Refill(s) ProAir HFA [...] tab, PO, l tablet 20:06: Daily, # [place] 00 90 tab, 0 Refill(s) Atropine Yes [...] tab, PO, l tablet 20:06: Daily, # [place] 00 30 tab, 0 Refill(s) donepezil 2019-0 Yes 10 mg = 1 Mem oria 10 mg oral 5-24 tab, PO, l tablet 20:06: Daily, # [place] 00 30 tab, 0 Refill(s) ProAir HFA 2019-0 Yes 1 - 2 Memori a 5-24 puffs, PO, l 20:06: Q4H, PRN [place] 00 Wheezing / cough / shortness of breath, # 1 ea, 0 Refill(s) metoprolol 2019 Yes 50 mg [...] tab, PO, l tablet 20:06: BID, 0 [place] 00 Refill(s) lisinopril 2019- Yes 40 mg = 1 Me moria 40 mg oral 5-24 tab, PO, l tablet 20:06: Daily, # [place] 30 tab, 0 Refill(s) donepezil 2018- Yes 10 mg = 1 Mem oria 10 mg oral 5-24 tab, PO, l tablet 20:06: Daily, # Raul 30 tab, 0 Refill(s) ProAir HFA 2019-0 Yes 1 - 2 Memori a 5-24 puffs, PO, l 20:06: Q4H, PRN [place] 00 Wheezing / cough / shortness of breath, # 1 ea, 0 Refill(s) metoprolol Yes 50 mg = 1 Me moria 50 mg oral 5-24 tab, PO, l tablet, 20:06: Daily, # Ajay n extended 30 tab, 0 release Refill(s) Escitalopra 2018- Yes 20 mg = 1 M emoria m 20 MG 5-24 tab, PO, l Oral Tablet 20:06: Daily, # [place] [Lexapro] 00 30 tab, 0 Refill(s) metoprolol 2018- Yes 50 mg = 1 Me moria 50 mg oral 5-24 tab, PO, l tablet, 20:06: Daily, # Ajay n extended 00 30 tab, 0 release Refill(s) omeprazole Yes 40 mg = 1 Me moria 40 mg oral 5-24 cap, PO, l delayed 20:06: Daily, # Ajay n release 00 30 cap, 0 capsule Refill(s) Escitalopra 2019-0 Yes 20 mg = [...] tab, PO, l tablet 20:06: Daily, # [place] 00 30 tab, 0 Refill(s) donepezil Yes 10 mg = 1 Mem oria 10 mg oral 5-24 tab, PO, l tablet 20:06: Daily, # [place] 00 30 tab, 0 Refill(s) ProAir HFA Yes 1 - 2 Memori a 5-24 puffs, PO, l 20:06: Q4H, PRN Raul 00 Wheezing / cough / shortness of breath, # 1 ea, 0 Refill(s) amLODIPine 2019 Yes 5 mg = 1 Mem oria 5 mg oral 5-24 tab, PO, l tablet 20:06: Daily, # [place] 00 90 tab, 0 Refill(s) Atropine 2019-0 [...] tab, PO, l tablet 20:06: BID, 0 [place] 00 Refill(s) lisinopril 2019 Yes 40 mg = 1 Me moria 40 mg oral 5-24 tab, PO, l tablet 20:06: Daily, # [place] 00 30 tab, 0 Refill(s) donepezil Yes 10 mg = 1 Mem oria 10 mg oral 5-24 tab, PO, l tablet 20:06: Daily, # [place] 00 30 tab, 0 Refill(s) ProAir HFA Yes 1 - 2 Memori a 5-24 puffs, PO, l 20:06: Q4H, PRN [place] 00 Wheezing / cough / shortness of [...] tab, PO, l tablet 20:06: Daily, # [place] 00 90 tab, 0 Refill(s) Atropine Yes [...] tab, PO, l tablet 20:06: BID, 0 [place] 00 Refill(s) lisinopril 2019- Yes 40 mg [...] 5-24 puffs, PO, l 20:06: Q4H, PRN [place] 00 Wheezing / cough / shortness of [...] tab, PO, l tablet 20:06: Daily, # [place] 00 90 tab, 0 Refill(s) Atropine 2019- [...] tab, PO, l tablet 20:06: BID, 0 [place] 00 Refill(s) lisinopril 2019 Yes 40 mg = 1 Me moria 40 mg oral 5-24 tab, PO, l tablet 20:06: Daily, # Raul 00 30 tab, 0 Refill(s) donepezil Yes 10 mg = 1 Mem oria 10 mg oral 5-24 tab, PO, l tablet 20:06: Daily, # [place] 00 30 tab, 0 Refill(s) ProAir HFA [...] tab, PO, l tablet 20:06: BID, 0 [place] 00 Refill(s) lisinopril 2019- Yes 40 mg = 1 Me moria 40 mg oral 5-24 tab, PO, l tablet 20:06: Daily, # [place] 00 30 tab, 0 Refill(s) donepezil Yes 10 mg = 1 Mem oria 10 mg oral 5-24 tab, PO, l tablet 20:06: Daily, # [place] 00 30 tab, 0 Refill(s) ProAir HFA [...] tab, PO, l tablet 20:06: Daily, # [place] 00 90 tab, 0 Refill(s) Atropine 2019-0 [...] nn 00 30 tab, 0 Refill(s) rOPINIRole 0 Yes 2 mg = 1 Mem oria [...] 5-24 puffs, PO, l 20:06: Q4H, PRN [place] 00 Wheezing / cough / shortness of [...] tab, PO, l tablet 20:06: Daily, # [place] 00 90 tab, 0 Refill(s) Atropine Yes [...] tab, PO, l tablet 20:06: BID, 0 [place] 00 Refill(s) lisinopril Yes 40 mg = 1 Me moria 40 mg oral 5-24 tab, PO, l tablet 20:06: Daily, # [place] 00 30 tab, 0 Refill(s) donepezil Yes 10 mg = 1 Mem oria 10 mg oral 5-24 tab, PO, l tablet 20:06: Daily, # [place] 00 30 tab, 0 Refill(s) ProAir HFA Yes 1 - 2 Memori a 5-24 puffs, PO, l 20:06: Q4H, PRN [place] 00 Wheezing / cough / shortness of [...] tab, PO, l tablet 20:06: BID, 0 [place] 00 Refill(s) lisinopril Yes 40 mg = [...] 5-24 puffs, PO, l 20:06: Q4H, PRN [place] 00 Wheezing / cough / shortness of [...] 36 Medical 24 hr Branch tablet rOPINIRole 2017- Yes 2mg Take 2 mg Un martha [...] mouth ity of mg tablet 17:04: daily. [place] [id number] Medical Branch lovastatin Yes 20mg Take 20 [...] mouth ity of XL (TOPROL 17:04: daily. [place] XL) 50 mg 36 Medical 24 hr [...] daily. [place] tablet 36 Medical Branch misoprostol 2017- Yes 200ug Take 200 U nivers (CYTOTEC) 3-07 mcg by ity of 200 mcg 17:04: mouth [place] tablet 36 daily. Medical Branch amLODIPine 20170 Yes 5mg Take 5 mg Un martha (NORVASC) 5 3-07 by mouth ity of mg tablet 17:04: daily. [place] [address] Medical Branch lovastatin 2017-0 Yes 20mg Take [...] mouth ity of XL (TOPROL 17:04: daily. [place] XL) 50 mg 36 Medical 24 hr Branch tablet rOPINIRole 2017-0 Yes 2mg Take 2 mg Un martha (REQUIP) 2 3-07 by mouth 2 ity of mg tablet 17:04: (two) [place] 36 times Medical daily. Branch levothyroxi 2017-0 [...] mouth ity of mg tablet 17:04: daily. [place] [address] Medical Branch lovastatin 2017-0 Yes 20mg Take 20 mg U nivers (MEVACOR) 3-07 by mouth ity of 20 mg 17:04: daily. [place] tablet 36 Medical Branch lisinopril [address]70 Yes 40mg Take 40 mg U nivers (PRINIVIL,Z 3-07 by mouth ity of ESTRIL) 40 11:04: daily. [place] mg tablet 36 Medical Branch escitalopra 0 Yes 20mg Take 20 mg Univers m [...] mouth ity of XL (TOPROL 11:04: daily. [place] XL) 50 mg 36 Medical 24 hr Branch tablet rOPINIRole 2017-0 Yes 2mg Take 2 mg Un martha (REQUIP) 2 3-07 by mouth 2 ity of mg tablet 11:04: (two) [place] 36 times Medical daily. Branch levothyroxi 2017-0 [...] ity of mg tablet 11:04: daily. [place] 36 Medical Branch lovastatin 2017-0 [...] mouth ity of mg tablet 11:04: daily. [address] lovastatin 2017-0 Yes 20mg Take 20 mg U nivers (MEVACOR) 3-07 by mouth ity of 20 mg 11:04: daily. [address] gabapentin gabapentin No gabapentin Devoted 300 mg [...] No Potassium Chloride Chloride Chloride Neeta ER Eneta ER Neeta ER Fluocinonid Fluocinonid No Fluocinoni [...] Mupirocin Mupirocin No Mupirocin Calcium Calcium Calcium Advair Advair No Advair Devoted Diskus 250 [...] TABLET BY DAY DAY MOUTH EVERY DAY Breo Breo No Breo Devoted Ellipta 200 Ellipta 200 Ellipta Medical mcg-25 mcg-25 200 mcg-25 Group mcg/dose mcg/dose mcg/dose powder for powder for powder for inhalation inhalation inhalation TAKE 1 PUFF TAKE 1 PUFF TAKE 1 BY MOUTH BY MOUTH PUFF BY EVERY DAY EVERY DAY MOUTH EVERY DAY bupropion bupropion No bupropion Devoted HCl XL 150 HCl XL 150 HCl XL 150 Medical mg 24 hr mg 24 hr mg 24 hr Anand up tablet, tablet, tablet, extended extended extended release release release TAKE 1 TAKE 1 TAKE 1 TABLET BY TABLET BY TABLET BY MOUTH TWICE MOUTH TWICE MOUTH A DAY A DAY TWICE A DAY carvedilol carvedilol No carvedilol Devoted 6.25 mg [...] TABLET BY DAY DAY MOUTH EVERY DAY Vital Signs Vital Name Observation Time Observation Value Comments Source Systolic blood 2022-08-05 20:00:00 122 [facility]Hg[facility] Diastolic blood 2022-08-05 20:00:00 77 mm[Hg] [facility] Heart rate 2022-08-05 20:00:00 50 /min [facility] Respiratory rate 2022-08-05 20:00:00 18 /min [facility] Oxygen saturation in 2022-08-05 20:00:00 94 /min [facility] Arterial blood by [facility] Pulse oximetry Branch Body temperature 2022-08-05 17:24:00 36 Tracee [facility] Body height 2022-08-05 17:24:00 149.9 cm [facility] Body weight 2022-08-05 17:24:00 83.915 kg [facility] BMI 2022-08-05 17:24:00 37.37 kg/m2 [facility] height 2022-07-27 13:15:00 59 [in_i] [facility] weight 2022-07-27 13:15:00 188.2 [lb_av] [facility] temperature 2022-07-27 13:15:00 97.6 [degF] [facility] bmi 2022-07-27 13:15:00 38.01 kg/m2 [facility] blood pressure 2022-07-27 13:15:00 125 mm[Hg] [facility] systolic [facility] blood pressure 2022-07-27 13:15:00 82 mm[Hg] [facility] diastolic [facility] height 2022-06-15 13:30:00 59 [in_i] [facility] weight 2022-06-15 13:30:00 193 [lb_av] [facility] temperature 2022-06-15 13:30:00 98.1 [degF] [facility] bmi 2022-06-15 13:30:00 38.98 kg/m2 [facility] blood pressure 2022-06-15 13:30:00 128 mm[Hg] [facility] systolic [facility] blood pressure 2022-06-15 13:30:00 76 mm[Hg] [facility] - diastolic [facility] height 2021-10-17 14:30:00 59 [in_i[facility] weight 2021-10-17 14:30:00 220 [lb_av] [facility] temperature 2021-10-17 14:30:00 97.9 [degF] [facility] bmi 2021-10-17 14:30:00 44.43 kg/m2 [facility] blood pressure 2021-10-17 14:30:00 126 mm[Hg] [facility] - systolic [facility] blood pressure 2021-10-17 14:30:00 74 mm[Hg] [facility] - diastolic [facility] Systolic blood 2020-06-28 19:30:00 180 mm[Hg] Univer sity of pressure [facility] Diastolic blood 2020-06-28 19:30:00 82 mm[Hg] Unive rsity of pressure [facility] Heart rate 2020-06-28 19:30:00 61 /min [facility] [place] [facility] Respiratory rate 2020-06-28 19:13:00 17 /min [facility] [place] [facility] Oxygen saturation in 2020-06-28 19:13:00 96 /min [facility] Arterial blood by [facility] Pulse oximetry Branch Body temperature 2020-06-28 16:54:00 36.33 Tracee [facility] [place] [facility] Body weight 2020-06-28 16:54:00 95.255 kg [facility] [place] [facility] BMI 2020-06-28 16:54:00 42.41 kg/m2 [facility] [place] [facility] Systolic blood 2020-06-28 19:30:00 180 mm[Hg] Univer sity of pressure [place] [facility] Diastolic blood 2020-06-28 19:30:00 82 mm[Hg] Unive rsity of pressure [place] [facility] Heart rate 2020-06-28 19:30:00 61 /min [facility] [place] [facility] Respiratory rate 2020-06-28 19:13:00 17 /min [facility] [place] [facility] Oxygen saturation in 2020-06-28 19:13:00 96 /min [facility] Arterial blood by [facility] Pulse oximetry Branch Body temperature 2020-06-28 16:54:00 36.33 Tracee [facility] [place] [facility] Body weight 2020-06-28 16:54:00 95.255 kg [facility] [place] [facility] BMI 2020-06-28 16:54:00 42.41 kg/m2 [facility] [place] [facility] Systolic blood 2020-02-19 19:23:00 160 mm[Hg] Univer sity of pressure [place] [facility] Diastolic blood 2020-02-19 19:23:00 84 mm[Hg] Unive rsity of pressure [place] [facility] Heart rate 2020-02-19 19:23:00 63 /min [facility] [place] [facility] Body temperature 2020-02-19 19:23:00 36.39 Tracee [facility] [place] [facility] Respiratory rate 2020-02-19 19:23:00 15 /min [facility] [place] [facility] Body height 2020-02-19 19:23:00 149.9 cm [facility] [place] [facility] Body weight 2020-02-19 19:23:00 99.791 kg [facility] [place] [facility] BMI 2020-02-19 19:23:00 44.43 kg/m2 [facility] [place] [facility] Oxygen saturation in 2020-02-19 19:23:00 96 /min [facility] Arterial blood by [facility] tania Pulse oximetry Branch Systolic blood 2020-02-19 19:23:00 160 mm[Hg] Univer sity of pressure [place] [facility] Diastolic blood 2020-02-19 19:23:00 84 mm[Hg] Unive rsity of pressure [place] [facility] Heart rate 2020-02-19 19:23:00 63 /min [facility] [place] [facility] Body temperature 2020-02-19 19:23:00 36.39 Tracee [facility] [place] [facility] Respiratory rate 2020-02-19 19:23:00 15 /min [facility] [place] [facility] Body height 2020-02-19 19:23:00 149.9 cm [facility] [place] [facility] Body weight 2020-02-19 19:23:00 99.791 kg [facility] [place] [facility] BMI 2020-02-19 19:23:00 44.43 kg/m2 [facility] [place] [facility] Oxygen saturation in 2020-02-19 19:23:00 96 /min University of Arterial blood by [facility] Pulse oximetry Branch Systolic blood 2019-12-10 04:00:00 202 mm[Hg] Univer sity of pressure [place] [facility] Diastolic blood 2019-12-10 04:00:00 92 mm[Hg] Unive rsity of pressure [place] [facility] Heart rate 2019-12-10 04:00:00 75 /min [facility] [place] [facility] Respiratory rate 2019-12-10 04:00:00 18 /min [facility] [place] [facility] Oxygen saturation in 2019-12-10 04:00:00 98 /min [facility] Arterial blood by [facility] Pulse oximetry Branch Body temperature 2019-12-10 02:51:13 36.39 Tracee [facility] [place] [facility] Body height 2019-12-10 02:28:00 162.6 cm [facility] [place] [facility] Body weight 2019-12-10 02:28:00 104.327 kg [facility] [place] [facility] BMI 2019-12-10 02:28:00 39.48 kg/m2 [facility] [place] [facility] Systolic blood 2019-12-10 04:00:00 202 mm[Hg] Univer sity of pressure [place] [facility] Diastolic blood 2019-12-10 04:00:00 92 mm[Hg] [facility] Heart rate 2019-12-10 04:00:00 75 /min [facility] Respiratory rate 2019-12-10 04:00:00 18 /min [facility] Oxygen saturation in 2019-12-10 04:00:00 98 /min [facility] Arterial blood by [facility] Pulse oximetry Branch Body temperature 2019-12-10 02:51:13 36.39 Tracee [facility] Body height 2019-12-10 02:28:00 162.6 cm [facility] Body weight 2019-12-10 02:28:00 104.327 kg [facility] BMI 2019-12-10 02:28:00 39.48 kg/m2 [facility] Heart Rate 2022-11-29 19:18:58 [facility] Systolic (mm Hg) 2022-11-29 19:18:48 Jose Francisco rial Raul Diastolic (mm Hg) 2022-11-29 19:18:48 Mem orial [facility] Heart Rate 2022-11-29 19:18:48 [facility] Temperature Oral (F) 2022-11-29 19:18:21 98.2 F [facility] Heart Rate 2022-11-29 13:36:55 [facility] Systolic (mm Hg) 2022-11-29 13:36:27 Jose Francisco rial Raul Diastolic (mm Hg) 2022-11-29 13:36:27 Mem orial [place] Systolic (mm Hg) 2022-11-29 13:14:00 Jose Francisco rial Raul Diastolic (mm Hg) 2022-11-29 13:14:00 Mem orial [facility] Respitory Rate 2022-11-29 10:05:34 Memori al [facility] Temperature Oral (F) 2022-11-29 10:04:49 98.4 F [facility] Respitory Rate 2022-11-29 05:37:05 Memori [facility] [place] Temperature Oral (F) 2022-11-29 05:36:29 97.7 F [facility] [place] Temperature Oral (F) 2022-11-29 02:00:00 98 F [facility] Respitory Rate 2022-11-28 20:51:03 [facility]ori [facility] [place] Height 2022-11-28 19:03:00 4 [ft_i] [facility] Weight 2022-11-28 19:03:00 [facility] [place] Height 2022-11-27 14:13:00 149.86 cm [facility] Weight 2022-11-27 14:13:00 [facility] BMI Calculated 2022-11-27 14:13:00 Memori [facility] [place] Height 2022-11-27 05:50:00 149.86 cm [facility] BMI Calculated 2022-11-27 05:50:00 [facility] [place] Weight 2022-11-27 05:50:00 [facility] Systolic (mm Hg) 2022-11-23 01:23:00 Jose Francisco [facility] [place] Diastolic (mm Hg) 2022-11-23 01:23:00 Mem orial [facility] Respitory Rate 2022-11-23 01:23:00 Memori [facility] [place] Respitory Rate 2022-11-22 22:30:00 Memori al [facility] Systolic (mm Hg) 2022-11-22 22:30:00 Jose Francisco rial [place] Diastolic (mm Hg) 2022-11-22 22:30:00 Mem orial [facility] Respitory Rate 2022-11-22 21:30:00 [facility] [place] Systolic (mm Hg) 2022-11-22 21:30:00 Jose Francisco [facility] [place] Diastolic (mm Hg) 2022-11-22 21:30:00 Mem [facility] [place] Temperature Oral (F) 2022-11-22 02:00:00 98.2 F [facility] Temperature Oral (F) 2022-11-21 22:54:00 97.7 F [facility] [place] Temperature Oral (F) 2022-11-21 16:07:00 98.2 F [facility] Height 2022-11-21 10:11:00 149.86 cm [facility] BMI Calculated 2022-11-21 10:11:00 [facility] [place] Weight 2022-11-21 10:11:00 [facility] Heart Rate 2022-11-21 10:11:00 [facility] Systolic (mm Hg) 2021-11-02 20:14:00 Jose Francisco [facility] [place] Diastolic (mm Hg) 2021-11-02 20:14:00 Mem orial [facility] Heart Rate 2021-11-02 20:14:00 [facility] [place] Respitory Rate 2021-11-02 20:14:00 Memori al [facility] Height 2021-11-02 20:14:00 149.86 cm [facility] Weight 2021-11-02 20:14:00 [facility] BMI Calculated 2021-11-02 20:14:00 Memori al [facility] Systolic (mm Hg) 2020-12-24 18:59:00 Jose Francisco rial [place] Diastolic (mm Hg) 2020-12-24 18:59:00 Mem o[facility] [place] Heart Rate 2020-12-24 18:59:00 [facility] Respitory Rate 2020-12-24 18:59:00 Memori al [facility] Height 2020-12-24 18:59:00 149.86 cm [facility] Weight 2020-12-24 18:59:00 [facility] BMI Calculated 2020-12-24 18:59:00 [facility] [place] Systolic (mm Hg) 2020-09-06 20:47:00 Jose Francisco rial [facility] Diastolic (mm Hg) 2020-09-06 20:47:00 Mem orial [facility] Temperature Oral (F) 2020-09-06 18:26:00 99.7 F [facility] Heart Rate 2020-09-06 18:26:00 [facility] Respitory Rate 2020-09-06 18:26:00 [facility] [place] Systolic (mm Hg) 2020-09-06 18:26:00 Jose Francisco [facility] [place] Diastolic (mm Hg) 2020-09-06 18:26:00 Mem [facility] [place] Temperature Oral (F) 2020-09-06 14:09:00 98.1 F [facility] Heart Rate 2020-09-06 14:09:00 [facility] Respitory Rate 2020-09-06 14:09:00 [facility] [place] Systolic (mm Hg) 2020-09-06 14:09:00 Jose Francisco rial [place] Diastolic (mm Hg) 2020-09-06 14:09:00 Mem orial [facility] Temperature Oral (F) 2020-09-06 10:00:00 98.1 F [facility] Heart Rate 2020-09-06 10:00:00 [facility] Respitory Rate 2020-09-06 10:00:00 Memori al [facility] Temperature Oral (F) 2020-09-06 06:30:00 97.5 F [facility] Heart Rate 2020-09-06 06:30:00 [facility] Respitory Rate 2020-09-06 06:30:00 Memori al [facility] Systolic (mm Hg) 2020-09-06 06:30:00 Jose Francisco [facility] [place] Diastolic (mm Hg) 2020-09-06 06:30:00 Mem orial [facility] Temperature Oral (F) 2020-09-06 02:45:00 97.8 F [facility] Heart Rate 2020-09-06 02:45:00 [facility] Respitory Rate 2020-09-06 02:45:00 [facility] [place] Systolic (mm Hg) 2020-09-06 02:45:00 Jose Francisco [facility] [place] Diastolic (mm Hg) 2020-09-06 02:45:00 Mem [facility] [place] Temperature Oral (F) 2020-09-05 22:00:00 97 F [facility] Heart Rate 2020-09-05 22:00:00 [facility] Respitory Rate 2020-09-05 22:00:00 Memori al [facility] Systolic (mm Hg) 2020-09-05 22:00:00 Jose Francisco rial [facility] Diastolic (mm Hg) 2020-09-05 22:00:00 Mem [facility] Height 2020-09-05 02:46:00 124.46 cm [facility] BMI Calculated 2020-09-05 02:46:00 Memori al [facility] Weight 2020-09-05 02:46:00 [facility] Systolic (mm Hg) 2020-05-25 18:41:00 Jose Francisco rial [facility] Diastolic (mm Hg) 2020-05-25 18:41:00 Mem o[facility] Heart Rate 2020-05-25 18:41:00 [facility] Respitory Rate 2020-05-25 18:41:00 [facility] [place] Temperature Oral (F) 2020-05-25 18:41:00 98.6 F [facility] Height 2020-05-25 18:41:00 149.86 cm [facility] Weight 2020-05-25 18:41:00 [facility] BMI Calculated 2020-05-25 18:41:00 Memori al [facility] Systolic (mm Hg) 2020-03-24 14:12:00 Jose Francisco [facility] [place] Diastolic (mm Hg) 2020-03-24 14:12:00 Mem o[facility] Heart Rate 2020-03-24 14:12:00 [facility] Height 2020-03-24 14:12:00 149.86 cm [facility] Weight 2020-03-24 14:12:00 [facility] BMI Calculated 2020-03-24 14:12:00 Memori [facility] Systolic (mm Hg) 2019-07-24 19:29:00 Jose Francisco [facility] [place] Diastolic (mm Hg) 2019-07-24 19:29:00 Mem o[facility] Heart Rate 2019-07-24 19:29:00 [facility] Respitory Rate 2019-07-24 19:29:00 [facility] [place] Height 2019-07-24 19:29:00 149.86 cm [facility] Weight 2019-07-24 19:29:00 [facility] BMI Calculated 2019-07-24 19:29:00 Memori al [facility] Systolic (mm Hg) 2019-05-21 19:25:00 Jose Francisco rial [facility] Diastolic (mm Hg) 2019-05-21 19:25:00 [facility] [place] Heart Rate 2019-05-21 19:25:00 [facility] Respitory Rate 2019-05-21 19:25:00 Memori al [facility] Height 2019-05-21 19:25:00 149.86 cm [facility] Weight 2019-05-21 19:25:00 [facility] BMI Calculated 2019-05-21 19:25:00 [facility] Height 2019-03-21 19:45:00 147.32 cm [facility] Weight 2019-03-21 19:45:00 [facility] BMI Calculated 2019-03-21 19:45:00 [facility] [place] Respitory Rate 2019-03-21 19:45:00 [facility] [place] Heart Rate 2019-03-21 19:45:00 [facility] Systolic (mm Hg) 2019-03-21 19:45:00 Jose Francisco rial [facility] Diastolic (mm Hg) 2019-03-21 19:45:00 Mem [facility] Height 2019-02-21 20:01:00 149.86 cm [facility] Weight 2019-02-21 20:01:00 Nancy Carter BMI Calculated 2019-02-21 20:01:00 Carlotta Samano Respitory Rate 2019-02-21 20:01:00 Carlotta Samano Heart Rate 2019-02-21 20:01:00 Nancy Carter Systolic (mm Hg) 2019-02-21 20:01:00 Jose Francisco Carter Diastolic (mm Hg) 2019-02-21 20:01:00 Chao orial Raul Procedures Procedure Date / Time Performing Clinician Source Performed AUTHORIZATION FOR 2022-11-22 06:01:00 Doctor Unassigned, No [facility] RELEASE OF PHI Name Medical Branch XR CHEST 1 VW 2022-08-05 17:51:10 Carly Sinclair [facility] TROPONIN I 2022-08-05 17:31:00 Carly Sinclair [facility] COMP. METABOLIC PANEL 2022-08-05 17:31:00 Carly Sinclair [facility] ([id number]) [facility] CBC WITH DIFF 2022-08-05 17:31:00 Carly Sinclair [facility] RAPID INFLUENZA A/B 2022-08-05 17:31:00 Carly Sinclair [facility] N-TERMINAL PRO-BNP 2022-08-05 17:31:00 Carly [facility] COVID-19 (ID NOW RAPID 2022-08-05 17:31:00 Carly Sinclair [facility] TESTING) [facility] CONSENT/REFUSAL FOR 2022-08-05 17:11:04 Doctor Unassigned, No [facility] XR FOREARM 2 VW RIGHT 2020-06-28 17:49:01 Sariah [facility] XR SHOULDER 2+ VW RIGHT 2020-06-28 17:49:01 Sariah Miller [facility] CONSENT/REFUSAL FOR 2020-02-19 18:58:01 [facility] Un[facility]igned, [facility] Name [facility] XR TIBIA FIBULA 2 VW 2019-12-10 03:20:47 Timi Aguirre [facility] Encounters Start End Encounter Admission Attending Care Care Encounter Source Date/Time Date/Time Type Type Clinicians Facility Department ID 2023-04-30 Outpatient STLMLC STLMLC [id number] Common 12:50:00 [id number] [facility] 2023-03-13 Outpatient [facility] [id number] [place] 09:56:10 [id number] [facility] 2022-11-28 Outpatient [facility] [id number] [place] 08:22:57 [id number] [facility] 2022-11-23 Outpatient [facility] [id number] [place] 15:23:09 [id number] [facility] 2022-11-13 Outpatient STLMLC STLMLC [id number] Common 13:04:00 [id number] [facility] 2022-11-09 Outpatient STLMLC STLMLC [id number] Common 12:35:00 [id number] [facility] 2022-07-26 Outpatient STLMLC STLMLC [id number] Common 16:10:00 [id number] [facility] 2022-06-16 Outpatient STLMLC STLMLC [id number] Common 09:53:02 [id number] [facility] 2021-10-26 Outpatient STLMLC STLMLC [id number] Common 13:00:46 [id number] [facility] 2021-10-26 Outpatient STLMLC STLMLC [id number] Common 12:25:20 [id number] [facility] 2021-10-26 Outpatient STLMLC STLMLC [id number] Common 12:16:59 [id number] [facility] 2021-10-05 Inpatient EL Pepper, HCAWU ADMI [id number] [facility] 11:00:00 Anurag Ferguson [facility] 2021-07-29 Emergency [facility] [id number] Univers 19:46:17 ity [facility] 2021-07-28 Emergency [facility] [id number] Univers [facility] 2023-04-30 2023-04-30 Outpatient GC_GCBZW_Ka PRIV PRIV [id number] [facility] 00:00:00 00:00:00 diyala_S [id number] Medic al 2023-04-30 2023-04-30 Outpatient GC_GCBZW_Ka PRIV PRIV [id number] [facility] 00:00:00 00:00:00 diyala_S [id number] Medic al 2023-04-25 2023-04-25 Outpatient GC_GCBZW_Ka PRIV PRIV [id number] [facility] 00:00:00 00:00:00 diyala_S [id number] Medic al 2023-04-25 2023-04-25 Outpatient GC_GCBZW_Ka PRIV PRIV [id number] [facility] 00:00:00 00:00:00 diyala_S [id number] Medic al 2023-04-25 2023-04-25 Outpatient GC_GCBZW_Ka PRIV PRIV [id number] [facility] 00:00:00 00:00:00 diyala_S [id number] Medic al 2023-04-18 2023-04-18 Outpatient GC_GCBZW_Ka PRIV PRIV [id number] [facility] 00:00:00 00:00:00 diyala_S [id number] Medic al 2023-03-14 2023-03-14 Care Glenys 2.16.840. 2.16.840.1. CLAC [id number] [facility] 21:00:00 21:15:00 Coordinati Harlan 1.571954. 967385.4.6. R6K Medical on Non 4.6.62241 [id number] Billable [id number] 2023-02-22 2023-02-22 Palliative Glenys 2.16.840. 2.16.840.1. C [id number] [facility] 17:30:00 18:30:00 Care Foster 1.584968. 632444.4.6. GFE Medical Follow Up 4.6.91164 [id number] 2023-02-14 2023-02-14 Outpatient JAMIE Anderson [id number] [facility] 08:00:00 09:00:00 Anurag Ma [facility] 2023-02-08 2023-02-08 Outpatient Deavers_C DMG DMG [id number] [facility] 00:00:00 00:00:00 0511 Medica l Group 2023-02-08 2023-02-08 Outpatient Deavers_C SHIRAG G [id number] [facility] 00:00:00 00:00:00 0626 Medica l Group 2023-01-31 2023-01-31 CAV Alisa 2.16.840. 2.16.840.1. CLA [id number] [facility] 19:00:00 20:00:00 Deavers 1.720119. 627904.4.6. WF9 [facility] 4.6.94245 [id number] 2023-01-22 2023-01-22 Outpatient Deavers_C DMG [facility] [id number] [facility] 00:00:00 00:00:00 0424 Medica l Group 2023-01-22 2023-01-22 Outpatient Deavers_C [facility] [id number] [facility] 00:00:00 00:00:00 0506 Medica l Group 2022-11-27 2022-11-29 Inpatient [facility] [id number] Memoria 05:48:00 21:37:[address] 2022-11-27 2022-11-29 Inpatient [facility] [id number] Memoria 05:48:00 21:37:[address] 2022-11-28 2022-11-29 Inpatient E CHRISTIEYOLANDA, [facility] [id number] [facility] 15:38:00 15:37:00 EMMANUEL 2022-11-26 2022-11-29 Outpatient Agustin, [facility] [id number] 23:48:00 15:37:00 Emmanuel 57 2022-11-26 2022-11-29 Outpatient Agustin, [facility] [id number] 23:48:00 15:37:00 Emmanuel 57 2022-11-21 2022[facility]11-[id number] Memoria 10:09:00 20:23:[address] 2022-11-21 2022-11-22 Observatio [facility] [id number] Memoria 10:09:00 20:23:00 n [place] 00 l [facility] 2022-11-21 2022-11-22 Outpatient E CESILIA [facility] [id number] [facility] 08:46:00 14:23:00 PEREZ 2022-11-21 2022-11-22 Outpatient Cesilia [facility] [id number] 04:09:00 14:23:00 Perez Allan 2022-11-21 2022-11-22 Outpatient Cesilia [facility] [id number] 04:09:00 14:23:00 Perez Hollyiji 2022-11-22 2022-11-22 Orders Doctor STEFANO 1.2.840.114 [id number] [facility] 00:00:00 00:00:00 Only Unassigned, TRU 350.1.13.10 [facility] 4.2.7.2.686 Carlos as [id number] [address] 2022-11-01 2022-11-01 (TEL) [facility] [id number] Co mmon 00:00:00 00:00:00 [facility] 2022-09-29 2022-09-29 Inpatient NIC Sanderson, HCAWU SUGL [id number] [facility] 11:00:00 11:00:00 Anurag Gross [facility] 2022-09-13 2022-09-13 ESTRELLA Dinh 2.16.840. 2.16.840.1. CLAC [id number] [facility] 20:30:00 21:00:00 Revisit: Valentín 1.968599. 197611.4.6. 2H3 Medical Gap 4.6.24641 [id number] Closure & 13757 Clinical Check-in 2022-09-05 2022-09-05 [facility]EL[facility] [id number] Co mmon 00:00:00 00:00:00 [facility] 2022-08-05 2022-08-05 Emergency X PERRI SINCLAIR ERT [id number] Univers 12:20:00 15:34:00 CARLY dominique [facility] 2022-08-05 2022-08-05 Emergency [facility] 1.2.840.114 [id number] Univers 12:20:00 15:34:00 Carly AMIN 350.1.13.10 [facility] 4.2.7.2.686 [facility] [id number] [facility] 084 Branch 2022-08-03 2022-08-03 Outpatient [place]ales_[place] [id number] [facility] 00:00:00 00:00:00 1103 Medica l Group 2022-07-27 2022-07-27 OFFICE STLMLC STLMLC [id number] Co mmon 00:00:00 00:00:00 VISIT Spirit ESTAB PT - CHI LEVEL 4 [facility] 2022-06-15 2022-06-15 OFFICE STLMLC STLC [id number] Co mmon 00:00:00 00:00:00 VISIT Spirit ESTAB PT - CHI LEVEL 4 [facility] 2022-06-12 2022-06-12 CAV Allegra 2.16.840. 2.16.840.1. [facility] [id number] [facility] 20:00:00 21:00:00 Valentín 1.907961. 161708.4.6. FE5 [facility] 4.6.62011 [id number] 2022-04-28 2022-04-28 Ambulatory nullFlavo MNA [id number] Memoria 19:00:00 19:00:00 Pre-Reg r Neurology 14 l [place] 2022-04-28 2022-04-28 Ambulatory nullFlavo MNA [id number] Memoria 19:00:00 19:00:00 Pre-Reg r Neurology 14 l Lana [place] 2022-04-28 2022-04-28 Outpatient FRANCESCO MAYA [id number] Memoria 14:00:00 14:00:00 14 l Raul 2022-04-28 2022-04-28 Outpatient YURIDIA Garcia [id number] 14:00:00 14:00:00 Jeffrey Shafer 2022-04-14 2022-04-14 [place] [id number] [facility] 07:15:00 07:15:00 0715 Medica l Group 2021-12-15 2021-12-15 (TEL) STLMLC STLMLC [id number] Co mmon 00:00:00 00:00:00 [facility] 2021-12-08 2021-12-08 (TEL) STLMLC STLMLC [id number] Co mmon 00:00:00 00:00:00 [facility] 2021-11-29 2021-11-29 OL DIG E/M STLMLC STLMLC [id number] Common 00:00:00 00:00:00 SVC 5-10 Spiri t [facility] 2021-11-21 2021-11-21 (TEL) STLMLC STLMLC [id number] Co mmon 00:00:00 00:00:00 [facility] 2021-11-02 2021-11-03 Outpatient nullFlavo MNA [id number] Memoria 19:30:00 05:59:59 r Neurology 13 lavelle [place] Raul 2021-11-02 2021-11-03 Outpatient nullFlavo MNA [id number] Memoria 19:30:00 05:59:59 r Neurology 13 lavelle [place] 2021-11-02 2021-11-02 Outpatient YURIDIA Garcia [facility] [id number] 13:30:00 23:59:59 Jeffrey 13 [place] 2021-11-02 2021-11-02 Ambulatory nullFlavo MNA [id number] Memoria 19:00:00 19:00:00 Pre-Reg r Neurology 12 lavelle [place] Raul 2021-11-02 2021-11-02 Ambulatory nullFlavo MNA [id number] Memoria 19:00:00 19:00:00 Pre-Reg r Neurology 12 lavelle Lana Carter 2021-11-02 2021-11-02 Outpatient MHIE MHIE [id number] Memoria 13:30:00 13:30:00 13 lavelle Carter 2021-11-02 2021-11-02 Outpatient MHIE MHIE [id number] Memoria 13:00:00 13:00:00 12 lavelle Carter 2021-11-02 2021-11-02 Outpatient YURIDIA Garcia YURIDIA [id number] 13:00:00 13:00:00 Jeffrey 12 [place] 2021-10-26 2021-10-26 (TEL) STLMLC STLMLC [id number] Co mmon 00:00:00 00:00:00 [facility] 2021-10-17 2021-10-17 OFFICE STLMLC STLMLC [id number] Co mmon 00:00:00 00:00:00 VISIT [facility] LEVEL 4 [facility] 2021-10-03 2021-10-03 CAV Allegra 2.16.840. 2.16.840.1. CLAC [id number] [facility] 20:00:00 21:30:00 Valentín 1.272976. 874855.4.6. R Medical 4.6.69476 [id number] 2021-08-29 2021-08-29 [place] [id number] [facility] 12:42:00 12:42:00 1129 Medica l Group 2021-06-28 2021-06-28 Ambulatory nullFlavo MNA [id number] Memoria 19:00:00 19:00:00 Pre-Reg r Neurology 11 l Lana Cunhaann 2021-06-28 2021-06-28 Ambulatory nullFlavo MNA [id number] Memoria 19:00:00 19:00:00 Pre-Reg r Neurology 11 l Lana Carter 2021-06-28 2021-06-28 Outpatient FRANCESCO MAYA [id number] Memoria 14:00:00 14:00:00 11 l Raul 2021-06-28 2021-06-28 Outpatient YURIDIA Garcia [id number] 14:00:00 14:00:00 Jeffrey 11 [place] 2021-05-16 2021-05-16 Outpatient STLMLC STLMLC [id number] Common 00:00:00 00:00:00 [facility] 2021-05-10 2021-05-10 Outpatient STLMLC STLMLC [id number] Common 00:00:00 00:00:00 [facility] 2021-04-12 2021-04-12 Outpatient STLMLC STLMLC [id number] Common 00:00:00 00:00:00 [facility] 2021-03-28 2021-03-28 Outpatient Olivia-Echoo VFP VFP [id number] [facility] 05:32:00 05:32:00 _A_AH [id number] Family Practic e 2021-03-28 2021-03-28 (TEL) STLMLC STLMLC [id number] Co mmon 00:00:00 00:00:00 [facility] 2021-03-07 2021-03-07 Outpatient STLMLC STLMLC [id number] Common 00:00:00 00:00:00 [facility] 2021-02-08 2021-02-08 Outpatient STLMLC STLMLC [id number] Common 00:00:00 00:00:00 [facility] 2021-01-28 2021-01-30 Outside nullFlavo MNA [id number] Memoria 14:05:24 04:59:59 Medical r Neurology 01 l Records Lana Carter 2021-01-28 2021-01-30 Outside nullFlavo MNA [id number] Memoria 14:05:24 04:59:59 Medical r Neurology 01 l Records Lana Cunhaann 2021-01-28 2021-01-29 Outpatient MHMISCHER MHMISCHER [id number] 09:05:24 23:59:59 01 2021-01-18 2021-01-18 Outpatient Olivia-Echoo VFP VFP [id number] [facility] 01:43:00 01:43:00 _A_AH [id number] Family Practic e 2021-01-14 2021-01-14 Outpatient Canales_M ARYAN SILVAG [id number] [facility] 05:20:00 05:20:00 0416 Medica l Group 2021-01-14 2021-01-14 Caitlyn BAEZA MA - [id number] D evoted 00:00:00 00:00:00 Radha Jerez, Health Group WORK ORDER CLERK: [id number] [facility] [address], [address], [place] [address] , Ph. 2021-01-14 2021-01-14 Outpatient Jerez, DMG DMG [id number] 00:00:00 00:00:00 Caitlyn [id number] Radha [id number] 2021-01-13 2021-01-13 Outpatient Canales_M [place]G DM [id number] [facility] 05:35:00 05:35:00 0415 Medica l Group 2021-01-12 2021-01-12 Outpatient [place]ales_[place] DM [id number] [facility] 04:16:00 04:16:00 0414 Medica l Group 2020-12-24 2020-12-25 Outpatient nullFlavo MNA [id number] Memoria 18:45:00 04:59:59 r Neurology 10 l Lana Carter 2020-12-24 2020-12-25 Outpatient nullFlavo MNA [id number] Memoria 18:45:00 04:59:59 r Neurology 10 l Lana Carter 2020-12-24 2020-12-24 Outpatient Jose, MHMISCHER MHMISCHER [id number] 13:45:00 23:59:59 Jeffrey 10 [place] 2020-12-24 2020-12-24 Outpatient MHIE PRUDENCIOIE [id number] Memoria 13:45:00 13:45:00 10 l Raul 2020-12-09 2020-12-09 Outpatient STLMLC STLMLC [id number] Common 00:00:00 00:00:00 [facility] 2020-12-09 2020-12-09 Outpatient STLMLC STLMLC [id number] Common 00:00:00 00:00:00 [facility] 2020-11-30 2020-11-30 Outpatient STLMLC STLMLC [id number] Common 00:00:00 00:00:00 [facility] 2020-11-23 2020-11-25 Outside nullFlavo MNA [id number] Memoria 17:49:36 05:59:59 Medical r Neurology 00 l Records Lana Carter 2020-11-23 2020-11-25 Outside nullFlavo MNA [id number] Memoria 17:49:36 05:59:59 Medical r Neurology 00 l Records [place] 2020-11-23 2020-11-24 Outpatient [facility]CHER [facility] [id number] 11:49:36 23:59:59 2020-10-28 2020-10-28 Outpatient STLMLC STLMLC [id number] Common 00:00:00 00:00:00 [facility] 2020-10-25 2020-10-25 Outpatient STLMLC STLMLC [id number] Common 00:00:00 00:00:00 [facility] 2020-10-11 2020-10-11 Ambulatory nullFlavo MNA [id number] Memoria 21:15:00 21:15:00 Pre-Reg r Neurology 09 l [facility] 2020-10-11 2020-10-11 Ambulatory nullFlavo MNA [id number] Memoria 21:15:00 21:15:00 Pre-Reg r Neurology 09 l [facility] 2020-10-11 2020-10-11 Outpatient MHIE FRANCESCO [id number] Memoria 15:15:00 15:15:00 09 l [place] 2020-10-11 2020-10-11 Outpatient Jose [facility] [id number] 15:15:00 15:15:00 Jeffrey 09 [place] 2020-09-29 2020-09-29 Outpatient STLMLC STLMLC [id number] Common 00:00:00 00:00:00 [facility] 2020-09-05 2020-09-06 Observatio nullFlavo [facility] [id number] Memoria 02:36:00 21:43:00 n r Raul 40 [facility] 2020-09-05 2020-09-06 Observatio nullFlavo [facility] [id number] Memoria 02:36:00 21:43:00 n r Raul 40 [facility] 2020-09-04 2020-09-06 Outpatient Nae [facility] [id number] 20:36:00 15:43:00 Vincent 40 Chu 2020-09-04 2020-09-04 Outpatient Nae [facility] [id number] 20:36:00 20:36:00 Vincent Sage 2020-08-24 2020-08-24 Ambulatory nullFlavo MNA [id number] Memoria 19:15:00 19:15:00 Pre-Reg r Neurology 08 l Lana [place] 2020-08-24 2020-08-24 Ambulatory nullFlavo MNA [id number] Memoria 19:15:00 19:15:00 Pre-Reg r Neurology 08 l Lana [place] 2020-08-24 2020-08-24 Outpatient MHIE LY [id number] Memoria 13:15:00 13:15:00 08 lavelle [place] 2020-08-24 2020-08-24 Outpatient YURIDIA Garcia [facility] [id number] 13:15:00 13:15:00 Jeffrey 08 [place] 2020-06-28 2020-06-28 Emergency [facility] [id number] [id number] 11:51:00 15:02:00 Sariah S [place] 350.1.13.10 [place] 4.2.7.2.686 [place] [id number] [facility] 2020-06-28 2020-06-28 [facility] 1.2.714.614 [id number] [facility] 11:51:00 15:02:00 Sariah S [place] 350.1.13.10 i ty of [place] 4.2.7.2.686 [facility] [id number] [address] 2020-05-25 2020-05-26 Outpatient nullFlavo MNA [id number] Memoria 18:45:00 04:59:59 r Neurology 07 l Lana [place] 2020-05-25 2020-05-26 Outpatient nullFlavo MNA [id number] Memoria 18:45:00 04:59:59 r Neurology 07 l Lana [place] 2020-05-25 2020-05-25 Outpatient GOSIA GarciaSCHANJEL [facility] [id number] 13:45:00 23:59:59 Jeffrey Mariam Holl[place] 2020-05-25 2020-05-25 Outpatient MHIE LY [id number] Memoria 13:45:00 13:45:00 07 lavelle [place] 2020-03-30 2020-03-30 Ambulatory nullFlavo MNA [id number] Memoria 20:15:00 20:15:00 Pre-Reg r Neurology 05 l Lana [place] 2020-03-30 2020-03-30 Ambulatory nullFlavo MNA [id number] Memoria 20:15:00 20:15:00 Pre-Reg r Neurology 05 l Lana Cunhaann 2020-03-30 2020-03-30 Outpatient MHIE MHIE [id number] Memoria 15:15:00 15:15:00 05 lavelle [place] 2020-03-30 2020-03-30 Outpatient Jose [facility] [id number] 15:15:00 15:15:00 Jeffrey 05 [place] 2020-03-24 2020-03-25 Outpatient nullFlavo MNA [id number] Memoria 14:00:00 04:59:59 r Neurology 06 l Lana [place] 2020-03-24 2020-03-25 Outpatient nullFlavo MNA [id number] Memoria 14:00:00 04:59:59 r Neurology 06 l Lana [place] 2020-03-24 2020-03-24 Outpatient Jose [facility] [id number] 09:00:00 23:59:59 Jeffrey 06 [place] 2020-03-24 2020-03-24 Outpatient MHIE MHIE [id number] Memoria 09:00:00 09:00:00 06 lavelle [place] 2020-02-19 2020-02-[address]905 [id number] 14:18:56 16:04:00 Maria Luisa Amin 350.1.13.10 [place] [address] [place] [address] [id number] [facility] 2020-02-19 2020-02-19 [address]794 [id number] [facility] 14:18:56 16:04:00 Maria Luisa Amin 350.1.13.10 ity [facility] 4.2.7.2.[address] [place] [address] [id number] 2019-12-11 2019-12-11 Outpatient Olivia-Mbayo VFP VF [id number] [facility] 06:48:00 06:48:00 _A_ [id number] Family Practic e 2019-12-11 2019-12-11 Outpatient Olivia-Mbayo VFP VFP [id number] [facility] 06:48:00 06:48:00 _A_AH 20346 Family Practic e 2019-12-09 2019-12-10 Emergency [facility] [id number] [id number] 21:28:34 00:05:00 Timi Amin 350.1.13.10 [place] 4.2.7.2.686 [place] [id number] [facility] 2019-12-09 2019-12-10 Emergency [facility] 1.2.823.655 [id number] Univers 21:28:34 00:05:00 Timi Amin 350.1.13.10 i ty of [place] 4.2.7.2.686 [facility] [id number] [address] 2019-12-09 2019-12-10 Emergency X [facility] ERT [id number] Univers 21:28:34 00:05:00 TIMI dominique [facility] 2019-11-19 2019-11-19 Outpatient Olivia-Echoo VFP [facility] [address] [place] [address] 07:16:00 07:16:00 _A_AH [id number] Family Practic e 2019-09-16 2019-09-16 Ambulatory nullFlavo MNA [id number] Memoria 21:00:00 21:00:00 Pre-Reg r Neurology 04 l Lana Carter 2019-09-16 2019-09-16 Ambulatory nullFlavo MNA [id number] Memoria 21:00:00 21:00:00 Pre-Reg r Neurology 04 l Lana Crater 2019-09-16 2019-09-16 Outpatient MHIE MHIE [id number] Memoria 15:00:00 15:00:00 Sonia Carter 2019-09-16 2019-09-16 Outpatient Jose MISCHER MISCHER [id number] 15:00:00 15:00:00 Jeffrey Shafer 2019-07-24 2019-07-25 Outpatient nullFlavo MNA [id number] Memoria 19:15:00 04:59:59 r Neurology 03 lavelle Carter 2019-07-24 2019-07-25 Outpatient nullFlavo MNA [id number] Memoria 19:15:00 04:59:59 r Neurology 03 lavelle Carter 2019-07-24 2019-07-24 Outpatient Jose [facility] [id number] 14:15:00 23:59:59 Jeffrey 03 [place] 2019-07-24 2019-07-24 Outpatient MHIE MHIE [id number] Memoria 14:15:00 14:15:00 03 lavelle [place] 2019-05-21 2019-05-22 Outpatient nullFlavo MNA [id number] Memoria 19:30:00 04:59:59 r Neurology 02 lavelle Carter 2019-05-21 2019-05-22 Outpatient nullFlavo MNA [id number] Memoria 19:30:00 04:59:59 r Neurology 02 lavelle Schwartz [place] 2019-05-21 2019-05-21 Outpatient Jose [facility] [id number] 14:30:00 23:59:59 Jeffrey 02 [place] 2019-05-21 2019-05-21 Outpatient MHIE MHIE [id number] Memoria 14:30:00 14:30:00 02 lavelle [place] 2019-03-21 2019-03-22 Outpatient nullFlavo MNA [id number] Memoria 19:30:00 04:59:59 r Neurology 01 lavelle Schwartz [place] 2019-03-21 2019-03-22 Outpatient nullFlavo MNA [id number] Memoria 19:30:00 04:59:59 r Neurology 01 lavelle Carter 2019-03-21 2019-03-21 Outpatient Jose [facility] [id number] 14:30:00 23:59:59 Jeffrey Hollis 2019-03-21 2019-03-21 Outpatient MHIE MHIE [id number] Memoria 14:30:00 14:30:00 01 lavelle Carter 2019-02-21 2019-02-22 Outpatient nullFlavo MNA [id number] Memoria 20:00:00 04:59:59 r Neurology 00 lavelle Schwartz Raul 2019-02-21 2019-02-22 Outpatient nullFlavo MNA [id number] Memoria 20:00:00 04:59:59 r Neurology 00 lavelle Schwartz [place] 2019-02-21 2019-02-21 Outpatient Jose [facility] [id number] 15:00:00 23:59:59 Jeffrey 00 Hollis Results Test Description Test Time Test Comments Results Result Comments Source HEMATOLOGY 2022-11-28 09:49:00 Test Item Value Reference Range Interpretation Comme nts MCV (test code = MCV) 91.5 80.0-98.0 [place] [id number] 09:49:00 Test Item Value Reference Range Interpretation Comments MCH (test code = MCH) 30.0 pg 27.0-31.0 [place] [id number] 09:49:00 Test Item Value Reference Range Interpretation Comments MCHC (test code = MCHC) 32.7 32.0-36.0 [place] [id number] 09:49:00 Test Item Value Reference Range Interpretation Comments RDW (test code = RDW) 14.1 11.5-14.5 [place] 56464-02-28 09:49:00 Test Item Value Reference Range Interpretation Comments Platelet (test code = Platelet) 136 133-450 [place] [id number] 09:49:00 Test Item Value Reference Range Interpretation Comments MPV (test code = MPV) 7.7 7.4-10.4 [facility]2023-02-28 09:49:00 Test Item Value Reference Range Interpretation Comments Glucose Lvl (test code = Glucose Lvl) 93 70-99 [facility]2023-02-28 09:49:00 Test Item Value Reference Range Interpretation Comments BUN (test code = BUN) 30 7-22 [place] 218493-02-28 09:49:00 Test Item Value Reference Range Interpretation Comments Creatinine Lvl (test code = Creatinine 2.50 0.50-1.40 Lvl) [place] 218493-02-28 09:49:00 Test Item Value Reference Range Interpretation Comments Sodium Lvl (test code = Sodium Lvl) 138 135-145 [place] 218493-02-28 09:49:00 Test Item Value Reference Range Interpretation Comments Potassium Lvl (test code = Potassium 5.1 3.5-5.1 Lvl) [facility]2023-02-28 09:49:00 Test Item Value Reference Range Interpretation Comments Chloride Lvl (test code = Chloride Lvl) 108 95-109 [place] 218493-02-28 09:49:00 Test Item Value Reference Range Interpretation Comments CO2 (test code = CO2) 30 24-32 [place] 218493-02-28 09:49:00 Test Item Value Reference Range Interpretation Comments Calcium Lvl (test code = Calcium Lvl) 8.0 8.5-10.5 [place] 218493-02-28 09:49:00 Test Item Value Reference Range Interpretation Comments AGAP (test code = AGAP) 5.1 10.0-20.0 [facility]2023-02-28 09:49:00 Test Item Value Reference Range Interpretation Comments eGFR (test code = eGFR) 19 [place] 711743-02-28 09:49:00 Test Item Value Reference Range Interpretation Comments Glucose Lvl (test code = Glucose Lvl) 93 70-99 [place] [address]-02-28 09:49:00 Test Item Value Reference Range Interpretation Comments BUN (test code = BUN) 30 - [place] 711743-02-28 09:49:00 Test Item Value Reference Range Interpretation Comments Creatinine Lvl (test code = Creatinine 2.50 0.50-1.40 Lvl) [facility]ACGLF[facility]DU[facility]14[facility] 09:49:00 Test Item Value Reference Range Interpretation Comments Sodium Lvl (test code = Sodium Lvl) 138 135-145 [facility] CenterFgbdrlfSPZKOBBXE1348-91-21 09:49:00 Test Item Value Reference Range Interpretation Comments Potassium Lvl (test code = Potassium 5.1 3.5-5.1 Lvl) [facility] CenterCkwuavlVPDZPJAKX5035-18-66 09:49:00 Test Item Value Reference Range Interpretation Comments Chloride Lvl (test code = Chloride Lvl) 108 95-109 [place] [address]-02-28 09:49:00 Test Item Value Reference Range Interpretation Comments CO2 (test code = CO2) 30 24-32 [place] 711743-02-28 09:49:00 Test Item Value Reference Range Interpretation Comments Calcium Lvl (test code = Calcium Lvl) 8.0 8.5-10.5 [place] 711743-02-28 09:49:00 Test Item Value Reference Range Interpretation Comments AGAP (test code = AGAP) 5.1 10.0-20.0 [place] [address]-02-28 09:49:00 Test Item Value Reference Range Interpretation Comments eGFR (test code = eGFR) 19 [place] 638193-02-28 09:49:00 Test Item Value Reference Range Interpretation Comments Segs (test code = Segs) 49.2 45.0-75.0 [place] 638193-02-28 09:49:00 Test Item Value Reference Range Interpretation Comments Lymphocytes (test code = Lymphocytes) 33.0 20.0-40.0 [place] 638193-02-28 09:49:00 Test Item Value Reference Range Interpretation Comments Monocytes (test code = Monocytes) 10.5 2.0-12.0 [place] 638193-02-28 09:49:00 Test Item Value Reference Range Interpretation Comments Eosinophils (test code = 6.6 See_Comment [A utomated message] The Eosinophils) system which ge nerated this result tra nsmitted reference range : <=4.0. The reference r christiano was not used to int erpret this result as normal/abnormal . [facility]HahveyiHFTXNVREJZ0060-47-26 09:49:00 Test Item Value Reference Range Interpretation Comments Basophils (test code = 0.7 See_Comment [Aut omated message] The Basophils) system which ge nerated this result tra nsmitted reference range : <=1.0. The reference r christiano was not used to int erpret this result as normal/abnormal . [facility] HospitalGpbtvppEQJZIAIYWQ8298-42-67 09:49:00 Test Item Value Reference Range Interpretation Comments Neutrophils # (test code = Neutrophils 3.0 1.5-8.1 #) [place] 638193-02-28 09:49:00 Test Item Value Reference Range Interpretation Comments Lymphocytes # (test code = Lymphocytes 2.0 1.0-5.5 #) [place] [address]-02-28 09:49:00 Test Item Value Reference Range Interpretation Comments Monocytes # (test code 0.7 See_Comment [Aut omated message] The = Monocytes #) system which generated this result tra nsmitted reference range : <=0.8. The reference r christiano was not used to int erpret this result as normal/abnormal . [place] 638193-02-28 09:49:00 Test Item Value Reference Range Interpretation Comments Eosinophils # (test code 0.4 See_Comment [A utomated message] The = Eosinophils #) system agreement24 avtal24ic h generated this result tra nsmitted reference range : <=0.5. The reference r christiano was not used to int erpret this result as normal/abnormal . [facility] HospitalXjufdloSIXNXNNIMN0368-43-80 09:49:00 Test Item Value Reference Range Interpretation Comments WBC (test code = WBC) 6.2 3.7-10.4 [facility] HospitalRuszkhjJCVSHTHOOD3576-53-81 09:49:00 Test Item Value Reference Range Interpretation Comments RBC (test code = RBC) 3.06 4.20-5.40 [place] 638193-02-28 09:49:00 Test Item Value Reference Range Interpretation Comments Hgb (test code = Hgb) 9.2 12.0-16.0 [place] 638193-02-28 09:49:00 Test Item Value Reference Range Interpretation Comments Hct (test code = Hct) 28.0 36.0-48.0 [facility] HospitalSxilfogNUGMFRLIXU7628-63-32 09:49:00 Test Item Value Reference Range Interpretation Comments MCV (test code = MCV) 91.5 80.0-98.0 [facility] HospitalEkfwatzIWAMDXYYBC8165-87-63 09:49:00 Test Item Value Reference Range Interpretation Comments MCH (test code = MCH) 30.0 pg 27.0-31.0 [facility] HospitalKjtnddjIKALRDUSSD9790-16-77 09:49:00 Test Item Value Reference Range Interpretation Comments MCHC (test code = MCHC) 32.7 32.0-36.0 [facility] HospitalDtzvqlqMBQOBOAKCN8559-25-17 09:49:00 Test Item Value Reference Range Interpretation Comments RDW (test code = RDW) 14.1 11.5-14.5 [place] 638193-02-28 09:49:00 Test Item Value Reference Range Interpretation Comments Platelet (test code = Platelet) 136 133-450 [facility] HospitalLozoeysZDQZSINOPY5796-59-69 09:49:00 Test Item Value Reference Range Interpretation Comments MPV (test code = MPV) 7.7 7.4-10.4 [facility] HospitalFeijbryFKCPTZMOST2923-86-15 09:49:00 Test Item Value Reference Range Interpretation Comments Segs (test code = Segs) 49.2 45.0-75.0 [place] 638193-02-28 09:49:00 Test Item Value Reference Range Interpretation Comments Lymphocytes (test code = Lymphocytes) 33.0 20.0-40.0 [place] 638193-02-28 09:49:00 Test Item Value Reference Range Interpretation Comments Monocytes (test code = Monocytes) 10.5 2.0-12.0 [place] 638193-02-28 09:49:00 Test Item Value Reference Range Interpretation Comments Eosinophils (test code = 6.6 See_Comment [A utomated message] The Eosinophils) system which ge nerated this result tra nsmitted reference range : <=4.0. The reference r christiano was not used to int erpret this result as normal/abnormal . [place] 638193-02-28 09:49:00 Test Item Value Reference Range Interpretation Comments Basophils (test code = 0.7 See_Comment [Aut omated message] The Basophils) system which ge nerated this result tra nsmitted reference range : <=1.0. The reference r christiano was not used to int erpret this result as normal/abnormal . [facility] HospitalRpmulndKBWYSSXZYF1077-49-83 09:49:00 Test Item Value Reference Range Interpretation Comments Neutrophils # (test code = Neutrophils 3.0 1.5-8.1 #) [place] 638193-02-28 09:49:00 Test Item Value Reference Range Interpretation Comments Lymphocytes # (test code = Lymphocytes 2.0 1.0-5.5 #) [place] 638193-02-28 09:49:00 Test Item Value Reference Range Interpretation Comments Monocytes # (test code 0.7 See_Comment [Aut omated message] The = Monocytes #) system which generated this result tra nsmitted reference range : <=0.8. The reference r christiano was not used to int erpret this result as normal/abnormal . [place] 638193-02-28 09:49:00 Test Item Value Reference Range Interpretation Comments Eosinophils # (test code 0.4 See_Comment [A utomated message] The = Eosinophils #) system ic h generated this result tra nsmitted reference range : <=0.5. The reference r christiano was not used to int erpret this result as normal/abnormal . [place] 638193-02-28 09:49:00 Test Item Value Reference Range Interpretation Comments WBC (test code = WBC) 6.2 3.7-10.4 [place] [address]-02-28 09:49:00 Test Item Value Reference Range Interpretation Comments RBC (test code = RBC) 3.06 4.20-5.40 [place] [address]-02-28 09:49:00 Test Item Value Reference Range Interpretation Comments Hgb (test code = Hgb) 9.2 12.0-16.0 [place] [address]-02-28 09:49:00 Test Item Value Reference Range Interpretation Comments Hct (test code = Hct) 28.0 36.0-48.0 [place] [address]-02-28 09:49:00 Test Item Value Reference Range Interpretation Comments MCV (test code = MCV) 91.5 80.0-98.0 [place] [address]-02-28 09:49:00 Test Item Value Reference Range Interpretation Comments MCH (test code = MCH) 30.0 pg 27.0-31.0 [place] [address]-02-28 09:49:00 Test Item Value Reference Range Interpretation Comments MCHC (test code = MCHC) 32.7 32.0-36.0 [place] [address]-02-28 09:49:00 Test Item Value Reference Range Interpretation Comments RDW (test code = RDW) 14.1 11.5-14.5 [place] 638193-02-28 09:49:00 Test Item Value Reference Range Interpretation Comments Platelet (test code = Platelet) 136 133-450 [place] 638193-02-28 09:49:00 Test Item Value Reference Range Interpretation Comments MPV (test code = MPV) 7.7 7.4-10.4 [place] 218493-02-28 09:49:00 Test Item Value Reference Range Interpretation Comments Glucose Lvl (test code = Glucose Lvl) 93 70-99 [place] 218493-02-28 09:49:00 Test Item Value Reference Range Interpretation Comments BUN (test code = BUN) 30 7-22 [place] 218493-02-28 09:49:00 Test Item Value Reference Range Interpretation Comments Creatinine Lvl (test code = Creatinine 2.50 0.50-1.40 Lvl) [place] 218493-02-28 09:49:00 Test Item Value Reference Range Interpretation Comments Sodium Lvl (test code = Sodium Lvl) 138 135-145 [place] 218493-02-28 09:49:00 Test Item Value Reference Range Interpretation Comments Potassium Lvl (test code = Potassium 5.1 3.5-5.1 Lvl) [place] 218493-02-28 09:49:00 Test Item Value Reference Range Interpretation Comments Chloride Lvl (test code = Chloride Lvl) 108 95-109 [place] [address]-02-28 09:49:00 Test Item Value Reference Range Interpretation Comments CO2 (test code = CO2) 30 24-32 [place] 218493-02-28 09:49:00 Test Item Value Reference Range Interpretation Comments Calcium Lvl (test code = Calcium Lvl) 8.0 8.5-10.5 [place] 218493-02-28 09:49:00 Test Item Value Reference Range Interpretation Comments AGAP (test code = AGAP) 5.1 10.0-20.0 [place] 218493-02-28 09:49:00 Test Item Value Reference Range Interpretation Comments eGFR (test code = eGFR) 19 [facility] CenterLfppznaCFEMXVJSW0375-01-03 09:49:00 Test Item Value Reference Range Interpretation Comments Glucose Lvl (test code = Glucose Lvl) 93 70-99 [place] 711743-02-28 09:49:00 Test Item Value Reference Range Interpretation Comments BUN (test code = BUN) 30 7-22 [place] 711743-02-28 09:49:00 Test Item Value Reference Range Interpretation Comments Creatinine Lvl (test code = Creatinine 2.50 0.50-1.40 Lvl) [place] 711743-02-28 09:49:00 Test Item Value Reference Range Interpretation Comments Sodium Lvl (test code = Sodium Lvl) 138 135-145 [place] [address]-02-28 09:49:00 Test Item Value Reference Range Interpretation Comments Potassium Lvl (test code = Potassium 5.1 3.5-5.1 Lvl) [place] 711743-02-28 09:49:00 Test Item Value Reference Range Interpretation Comments Chloride Lvl (test code = Chloride Lvl) 108 95-109 [place] 711743-02-28 09:49:00 Test Item Value Reference Range Interpretation Comments CO2 (test code = CO2) 30 24-32 [place] 711743-02-28 09:49:00 Test Item Value Reference Range Interpretation Comments Calcium Lvl (test code = Calcium Lvl) 8.0 8.5-10.5 [facility] CenterTavisfeDAGHAIBZT8263-04-44 09:49:00 Test Item Value Reference Range Interpretation Comments AGAP (test code = AGAP) 5.1 10.0-20.0 [facility] CenterWhgxeihBBACWYXZA5439-20-68 09:49:00 Test Item Value Reference Range Interpretation Comments eGFR (test code = eGFR) 19 [facility] HospitalShwxaebTXHLLWBIFF6184-75-77 09:49:00 Test Item Value Reference Range Interpretation Comments Segs (test code = Segs) 49.2 45.0-75.0 [place] 638193-02-28 09:49:00 Test Item Value Reference Range Interpretation Comments Lymphocytes (test code = Lymphocytes) 33.0 20.0-40.0 [facility] HospitalPjhxodrMFHNWKTZRR1617-69-18 09:49:00 Test Item Value Reference Range Interpretation Comments Monocytes (test code = Monocytes) 10.5 2.0-12.0 [facility] HospitalZalndrvVMZYGZJQDW3244-14-04 09:49:00 Test Item Value Reference Range Interpretation Comments Eosinophils (test code = 6.6 See_Comment [A utomated message] The Eosinophils) system which ge nerated this result tra nsmitted reference range : <=4.0. The reference r christiano was not used to int erpret this result as normal/abnormal . [facility] HospitalOyygxyjJSAOWNTKOC6643-08-20 09:49:00 Test Item Value Reference Range Interpretation Comments Basophils (test code = 0.7 See_Comment [Aut omated message] The Basophils) system which ge nerated this result tra nsmitted reference range : <=1.0. The reference r christiano was not used to int erpret this result as normal/abnormal . [facility] HospitalSwojymnQOLUURZMCF9593-83-48 09:49:00 Test Item Value Reference Range Interpretation Comments Neutrophils # (test code = Neutrophils 3.0 1.5-8.1 #) [facility] HospitalPwnhuwuEMQJZDEVVQ7111-49-35 09:49:00 Test Item Value Reference Range Interpretation Comments Lymphocytes # (test code = Lymphocytes 2.0 1.0-5.5 #) [facility] HospitalUgamqizOGNILXGOKQ7256-83-50 09:49:00 Test Item Value Reference Range Interpretation Comments Monocytes # (test code 0.7 See_Comment [Aut omated message] The = Monocytes #) system which generated this result tra nsmitted reference range : <=0.8. The reference r christiano was not used to int erpret this result as normal/abnormal . [place] 638193-02-28 09:49:00 Test Item Value Reference Range Interpretation Comments Eosinophils # (test code 0.4 See_Comment [A utomated message] The = Eosinophils #) system whic h generated this result tra nsmitted reference range : <=0.5. The reference r christiano was not used to int erpret this result as normal/abnormal . [facility] HospitalYdnyfdaNVABLATXGM3900-07-73 09:49:00 Test Item Value Reference Range Interpretation Comments WBC (test code = WBC) 6.2 3.7-10.4 [place] 638193-02-28 09:49:00 Test Item Value Reference Range Interpretation Comments RBC (test code = RBC) 3.06 4.20-5.40 [place] 638193-02-28 09:49:00 Test Item Value Reference Range Interpretation Comments Hgb (test code = Hgb) 9.2 12.0-16.0 [place] 638193-02-28 09:49:00 Test Item Value Reference Range Interpretation Comments Hct (test code = Hct) 28.0 36.0-48.0 [place] [address]-02-28 09:49:00 Test Item Value Reference Range Interpretation Comments MCV (test code = MCV) 91.5 80.0-98.0 [place] [address]-02-28 09:49:00 Test Item Value Reference Range Interpretation Comments MCH (test code = MCH) 30.0 pg 27.0-31.0 [place] 638193-02-28 09:49:00 Test Item Value Reference Range Interpretation Comments MCHC (test code = MCHC) 32.7 32.0-36.0 [place] [address]-02-28 09:49:00 Test Item Value Reference Range Interpretation Comments RDW (test code = RDW) 14.1 11.5-14.5 [place] [address]-02-28 09:49:00 Test Item Value Reference Range Interpretation Comments Platelet (test code = Platelet) 136 133-450 [place] [address]-02-28 09:49:00 Test Item Value Reference Range Interpretation Comments MPV (test code = MPV) 7.7 7.4-10.4 [place] [address]-02-28 09:49:00 Test Item Value Reference Range Interpretation Comments Segs (test code = Segs) 49.2 45.0-75.0 [place] [address]-02-28 09:49:00 Test Item Value Reference Range Interpretation Comments Lymphocytes (test code = Lymphocytes) 33.0 20.0-40.0 [place] [address]-02-28 09:49:00 Test Item Value Reference Range Interpretation Comments Monocytes (test code = Monocytes) 10.5 2.0-12.0 [place] [address]-02-28 09:49:00 Test Item Value Reference Range Interpretation Comments Eosinophils (test code = 6.6 See_Comment [A utomated message] The Eosinophils) system which ge nerated this result tra nsmitted reference range : <=4.0. The reference r christiano was not used to int erpret this result as normal/abnormal . [place] 638193-02-28 09:49:00 Test Item Value Reference Range Interpretation Comments Basophils (test code = 0.7 See_Comment [Aut omated message] The Basophils) system which ge nerated this result tra nsmitted reference range : <=1.0. The reference r christiano was not used to int erpret this result as normal/abnormal . [place] 638193-02-28 09:49:00 Test Item Value Reference Range Interpretation Comments Neutrophils # (test code = Neutrophils 3.0 1.5-8.1 #) [place] [address]-02-28 09:49:00 Test Item Value Reference Range Interpretation Comments Lymphocytes # (test code = Lymphocytes 2.0 1.0-5.5 #) [place] [address]-02-28 09:49:00 Test Item Value Reference Range Interpretation Comments Monocytes # (test code 0.7 See_Comment [Aut omated message] The = Monocytes #) system which generated this result tra nsmitted reference range : <=0.8. The reference r christiano was not used to int erpret this result as normal/abnormal . [facility] HospitalZucoweaIRZXZTCDSO1589-95-19 09:49:00 Test Item Value Reference Range Interpretation Comments Eosinophils # (test code 0.4 See_Comment [A utomated message] The = Eosinophils #) system whic h generated this result tra nsmitted reference range : <=0.5. The reference r christiano was not used to int erpret this result as normal/abnormal . [facility] HospitalIixkyogMXLGONHHHX9062-54-20 09:49:00 Test Item Value Reference Range Interpretation Comments WBC (test code = WBC) 6.2 3.7-10.4 [place] 638193-02-28 09:49:00 Test Item Value Reference Range Interpretation Comments RBC (test code = RBC) 3.06 4.20-5.40 [facility] HospitalZjnzarrUCBFKXJKXA5232-01-81 09:49:00 Test Item Value Reference Range Interpretation Comments Hgb (test code = Hgb) 9.2 12.0-16.0 [facility] HospitalVihmrdxCQRZHLDTBT9542-94-82 09:49:00 Test Item Value Reference Range Interpretation Comments Hct (test code = Hct) 28.0 36.0-48.0 [place] 638193-02-28 09:49:00 Test Item Value Reference Range Interpretation Comments MCV (test code = MCV) 91.5 80.0-98.0 [place] 638193-02-28 09:49:00 Test Item Value Reference Range Interpretation Comments MCH (test code = MCH) 30.0 pg 27.0-31.0 [place] 638193-02-28 09:49:00 Test Item Value Reference Range Interpretation Comments MCHC (test code = MCHC) 32.7 32.0-36.0 [place] 638193-02-28 09:49:00 Test Item Value Reference Range Interpretation Comments RDW (test code = RDW) 14.1 11.5-14.5 [place] 638193-02-28 09:49:00 Test Item Value Reference Range Interpretation Comments Platelet (test code = Platelet) 136 133-450 [facility]gbmlWLFEMRISTY2456-[facility]-97 09:49:00 Test Item Value Reference Range Interpretation Comments MPV (test code = MPV) 7.7 7.4-10.4 [facility]2023-02-28 09:49:00 Test Item Value Reference Range Interpretation Comments Glucose Lvl (test code = Glucose Lvl) 93 70-99 [place] 218493-02-28 09:49:00 Test Item Value Reference Range Interpretation Comments BUN (test code = BUN) 30 7-22 [place] 218493-02-28 09:49:00 Test Item Value Reference Range Interpretation Comments Creatinine Lvl (test code = Creatinine 2.50 0.50-1.40 Lvl) [place] 218493-02-28 09:49:00 Test Item Value Reference Range Interpretation Comments Sodium Lvl (test code = Sodium Lvl) 138 135-145 [place] 218493-02-28 09:49:00 Test Item Value Reference Range Interpretation Comments Potassium Lvl (test code = Potassium 5.1 3.5-5.1 Lvl) [facility]2023-02-28 09:49:00 Test Item Value Reference Range Interpretation Comments Chloride Lvl (test code = Chloride Lvl) 108 95-109 [place] 218493-02-28 09:49:00 Test Item Value Reference Range Interpretation Comments CO2 (test code = CO2) 30 24-32 [place] 218493-02-28 09:49:00 Test Item Value Reference Range Interpretation Comments Calcium Lvl (test code = Calcium Lvl) 8.0 8.5-10.5 [place] 218493-02-28 09:49:00 Test Item Value Reference Range Interpretation Comments AGAP (test code = AGAP) 5.1 10.0-20.0 [place] 218493-02-28 09:49:00 Test Item Value Reference Range Interpretation Comments eGFR (test code = eGFR) 19 [place] 711743-02-28 09:49:00 Test Item Value Reference Range Interpretation Comments Glucose Lvl (test code = Glucose Lvl) 93 70-99 [place] 711743-02-28 09:49:00 Test Item Value Reference Range Interpretation Comments BUN (test code = BUN) 30 7-22 [facility] CenterVjswotzUCTMHHAUF6996-70-92 09:49:00 Test Item Value Reference Range Interpretation Comments Creatinine Lvl (test code = Creatinine 2.50 0.50-1.40 Lvl) [facility] CenterDlgmfsgEFBUTPCXR3518-27-32 09:49:00 Test Item Value Reference Range Interpretation Comments Sodium Lvl (test code = Sodium Lvl) 138 135-145 [facility] CenterWsevithJSKHEKZPU9937-98-76 09:49:00 Test Item Value Reference Range Interpretation Comments Potassium Lvl (test code = Potassium 5.1 3.5-5.1 Lvl) [facility] CenterIqgfumrOZOFAYMUG1883-68-52 09:49:00 Test Item Value Reference Range Interpretation Comments Chloride Lvl (test code = Chloride Lvl) 108 95-109 [facility] CenterXdmhpcnLFURYSJSQ4983-17-96 09:49:00 Test Item Value Reference Range Interpretation Comments CO2 (test code = CO2) 30 24-32 [facility] CenterEmqlhuyLMUYMCSXC5558-89-59 09:49:00 Test Item Value Reference Range Interpretation Comments Calcium Lvl (test code = Calcium Lvl) 8.0 8.5-10.5 [facility] CenterKpqzxlhAXRAITOCV3366-39-03 09:49:00 Test Item Value Reference Range Interpretation Comments AGAP (test code = AGAP) 5.1 10.0-20.0 [facility] CenterLvwewryFOASAJRPM5933-32-72 09:49:00 Test Item Value Reference Range Interpretation Comments eGFR (test code = eGFR) 19 [facility] HospitalYrgdpkvABEAQEGUSX6280-74-88 09:49:00 Test Item Value Reference Range Interpretation Comments Segs (test code = Segs) 49.2 45.0-75.0 [facility] HospitalMfsebxiXRBHDYORYK1329-83-12 09:49:00 Test Item Value Reference Range Interpretation Comments Lymphocytes (test code = Lymphocytes) 33.0 20.0-40.0 [place] 638193-02-28 09:49:00 Test Item Value Reference Range Interpretation Comments Monocytes (test code = Monocytes) 10.5 2.0-12.0 [place] 638193-02-28 09:49:00 Test Item Value Reference Range Interpretation Comments Eosinophils (test code = 6.6 See_Comment [A utomated message] The Eosinophils) system which ge nerated this result tra nsmitted reference range : <=4.0. The reference r christiano was not used to int erpret this result as normal/abnormal . [place] 638193-02-28 09:49:00 Test Item Value Reference Range Interpretation Comments Basophils (test code = 0.7 See_Comment [Aut omated message] The Basophils) system which ge nerated this result tra nsmitted reference range : <=1.0. The reference r christiano was not used to int erpret this result as normal/abnormal . [place] 638193-02-28 09:49:00 Test Item Value Reference Range Interpretation Comments Neutrophils # (test code = Neutrophils 3.0 1.5-8.1 #) [place] 638193-02-28 09:49:00 Test Item Value Reference Range Interpretation Comments Lymphocytes # (test code = Lymphocytes 2.0 1.0-5.5 #) [place] 638193-02-28 09:49:00 Test Item Value Reference Range Interpretation Comments Monocytes # (test code 0.7 See_Comment [Aut omated message] The = Monocytes #) system which generated this result tra nsmitted reference range : <=0.8. The reference r christiano was not used to int erpret this result as normal/abnormal . [facility] HospitalZmtvhtxCEDVUJSWKB7159-28-35 09:49:00 Test Item Value Reference Range Interpretation Comments Eosinophils # (test code 0.4 See_Comment [A utomated message] The = Eosinophils #) system whic h generated this result tra nsmitted reference range : <=0.5. The reference r christiano was not used to int erpret this result as normal/abnormal . [facility] HospitalZebenunEXPFRYQNPA6999-79-76 09:49:00 Test Item Value Reference Range Interpretation Comments WBC (test code = WBC) 6.2 3.7-10.4 [place] [address]-02-28 09:49:00 Test Item Value Reference Range Interpretation Comments RBC (test code = RBC) 3.06 4.20-5.40 [place] [address]-02-28 09:49:00 Test Item Value Reference Range Interpretation Comments Hgb (test code = Hgb) 9.2 12.0-16.0 [place] [address]-02-28 09:49:00 Test Item Value Reference Range Interpretation Comments Hct (test code = Hct) 28.0 36.0-48.0 [place] 638193-02-28 09:49:00 Test Item Value Reference Range Interpretation Comments MCV (test code = MCV) 91.5 80.0-98.0 [place] 638193-02-28 09:49:00 Test Item Value Reference Range Interpretation Comments MCH (test code = MCH) 30.0 pg 27.0-31.0 [place] [place]38193-[place]-28 09:49:00 Test Item Value Reference Range Interpretation Comments MCHC (test code = MCHC) 32.7 32.0-36.0 [place] 638193-02-28 09:49:00 Test Item Value Reference Range Interpretation Comments RDW (test code = RDW) 14.1 11.5-14.5 [place] 638193-02-28 09:49:00 Test Item Value Reference Range Interpretation Comments Platelet (test code = Platelet) 136 133-450 [facility]NN[facility]IU[facility]4485[facility] 09:49:00 Test Item Value Reference Range Interpretation Comments MPV (test code = MPV) 7.7 7.4-10.4 [place] 638193-02-28 09:49:00 Test Item Value Reference Range Interpretation Comments Segs (test code = Segs) 49.2 45.0-75.0 [facility]CptslovGBTFNXQYQE4879-53-04 09:49:00 Test Item Value Reference Range Interpretation Comments Lymphocytes (test code = Lymphocytes) 33.0 20.0-40.0 [place] 638193-02-28 09:49:00 Test Item Value Reference Range Interpretation Comments Monocytes (test code = Monocytes) 10.5 2.0-12.0 [place] [address]-02-28 09:49:00 Test Item Value Reference Range Interpretation Comments Eosinophils (test code = 6.6 See_Comment [A utomated message] The Eosinophils) system which ge nerated this result tra nsmitted reference range : <=4.0. The reference r christiano was not used to int erpret this result as normal/abnormal . [facility] HospitalTirwqfsQDQGZCICMH2262-65-61 09:49:00 Test Item Value Reference Range Interpretation Comments Basophils (test code = 0.7 See_Comment [Aut omated message] The Basophils) system which ge nerated this result tra nsmitted reference range : <=1.0. The reference r christiano was not used to int erpret this result as normal/abnormal . [place] 638193-02-28 09:49:00 Test Item Value Reference Range Interpretation Comments Neutrophils # (test code = Neutrophils 3.0 1.5-8.1 #) [place] [address]-02-28 09:49:00 Test Item Value Reference Range Interpretation Comments Lymphocytes # (test code = Lymphocytes 2.0 1.0-5.5 #) [place] [address]-02-28 09:49:00 Test Item Value Reference Range Interpretation Comments Monocytes # (test code 0.7 See_Comment [Aut omated message] The = Monocytes #) system which generated this result tra nsmitted reference range : <=0.8. The reference r christiano was not used to int erpret this result as normal/abnormal . [place] 638193-02-28 09:49:00 Test Item Value Reference Range Interpretation Comments Eosinophils # (test code 0.4 See_Comment [A utomated message] The = Eosinophils #) system whic h generated this result tra nsmitted reference range : <=0.5. The reference r christiano was not used to int erpret this result as normal/abnormal . [facility] HospitalHgyjdbrHAZPUFECAC6971-37-94 09:49:00 Test Item Value Reference Range Interpretation Comments WBC (test code = WBC) 6.2 3.7-10.4 [place] [address]-02-28 09:49:00 Test Item Value Reference Range Interpretation Comments RBC (test code = RBC) 3.06 4.20-5.40 [place] [address]-02-28 09:49:00 Test Item Value Reference Range Interpretation Comments Hgb (test code = Hgb) 9.2 12.0-16.0 [place] [address]-02-28 09:49:00 Test Item Value Reference Range Interpretation Comments Hct (test code = Hct) 28.0 36.0-48.0 [place] [address]-02-28 09:49:00 Test Item Value Reference Range Interpretation Comments MCV (test code = MCV) 91.5 80.0-98.0 [place] [address]-02-28 09:49:00 Test Item Value Reference Range Interpretation Comments MCH (test code = MCH) 30.0 pg 27.0-31.0 [place] [address]-02-28 09:49:00 Test Item Value Reference Range Interpretation Comments MCHC (test code = MCHC) 32.7 32.0-36.0 [place] [address]-02-28 09:49:00 Test Item Value Reference Range Interpretation Comments RDW (test code = RDW) 14.1 11.5-14.5 [place] [address]-02-28 09:49:00 Test Item Value Reference Range Interpretation Comments Platelet (test code = Platelet) 136 133-450 [place] [address]-02-28 09:49:00 Test Item Value Reference Range Interpretation Comments MPV (test code = MPV) 7.7 7.4-10.4 [place] 218493-02-28 09:49:00 Test Item Value Reference Range Interpretation Comments Glucose Lvl (test code = Glucose Lvl) 93 70-99 [place] 218493-02-28 09:49:00 Test Item Value Reference Range Interpretation Comments BUN (test code = BUN) 30 7-22 [place] 218493-02-28 09:49:00 Test Item Value Reference Range Interpretation Comments Creatinine Lvl (test code = Creatinine 2.50 0.50-1.40 Lvl) [place] 218493-02-28 09:49:00 Test Item Value Reference Range Interpretation Comments Sodium Lvl (test code = Sodium Lvl) 138 135-145 [place] 218493-02-28 09:49:00 Test Item Value Reference Range Interpretation Comments Potassium Lvl (test code = Potassium 5.1 3.5-5.1 Lvl) [place] 218493-02-28 09:49:00 Test Item Value Reference Range Interpretation Comments Chloride Lvl (test code = Chloride Lvl) 108 95-109 [place] [address]-02-28 09:49:00 Test Item Value Reference Range Interpretation Comments CO2 (test code = CO2) 30 24-32 [place] 218493-02-28 09:49:00 Test Item Value Reference Range Interpretation Comments Calcium Lvl (test code = Calcium Lvl) 8.0 8.5-10.5 [facility]2023-02-28 09:49:00 Test Item Value Reference Range Interpretation Comments AGAP (test code = AGAP) 5.1 10.0-20.0 [facility]2023-02-28 09:49:00 Test Item Value Reference Range Interpretation Comments eGFR (test code = eGFR) 19 [place] 711743-02-28 09:49:00 Test Item Value Reference Range Interpretation Comments Glucose Lvl (test code = Glucose Lvl) 93 70-99 [place] 711743-02-28 09:49:00 Test Item Value Reference Range Interpretation Comments BUN (test code = BUN) 30 7-22 [place] 711743-02-28 09:49:00 Test Item Value Reference Range Interpretation Comments Creatinine Lvl (test code = Creatinine 2.50 0.50-1.40 Lvl) [facility]DGWPXYNSQ7566[facility] 09:49:00 Test Item Value Reference Range Interpretation Comments Sodium Lvl (test code = Sodium Lvl) 138 135-145 [place] 711743-02-28 09:49:00 Test Item Value Reference Range Interpretation Comments Potassium Lvl (test code = Potassium 5.1 3.5-5.1 Lvl) [facility]AtjjgjiNDZVZDZBJ0884-43-45 09:49:00 Test Item Value Reference Range Interpretation Comments Chloride Lvl (test code = Chloride Lvl) 108 95-109 [facility] CenterUwluvuxVNLIKTZRL4700-09-63 09:49:00 Test Item Value Reference Range Interpretation Comments CO2 (test code = CO2) 30 24-32 [facility] CenterVlhggwjOWIZORWNP9964-59-37 09:49:00 Test Item Value Reference Range Interpretation Comments Calcium Lvl (test code = Calcium Lvl) 8.0 8.5-10.5 [facility] CenterOdefrcjEODVLXPUL1900-12-69 09:49:00 Test Item Value Reference Range Interpretation Comments AGAP (test code = AGAP) 5.1 10.0-20.0 [facility] CenterQszwqhpSRXQLLINR3700-02-96 09:49:00 Test Item Value Reference Range Interpretation Comments eGFR (test code = eGFR) 19 [facility] HospitalKamqvdiGCMNCGUMEU6859-14-26 09:49:00 Test Item Value Reference Range Interpretation Comments Segs (test code = Segs) 49.2 45.0-75.0 [place] [address]-02-28 09:49:00 Test Item Value Reference Range Interpretation Comments Lymphocytes (test code = Lymphocytes) 33.0 20.0-40.0 [place] [address]-02-28 09:49:00 Test Item Value Reference Range Interpretation Comments Monocytes (test code = Monocytes) 10.5 2.0-12.0 [place] [address]-02-28 09:49:00 Test Item Value Reference Range Interpretation Comments Eosinophils (test code = 6.6 See_Comment [A utomated message] The Eosinophils) system which ge nerated this result tra nsmitted reference range : <=4.0. The reference r christiano was not used to int erpret this result as normal/abnormal . [place] [address]-02-28 09:49:00 Test Item Value Reference Range Interpretation Comments Basophils (test code = 0.7 See_Comment [Aut omated message] The Basophils) system which ge nerated this result tra nsmitted reference range : <=1.0. The reference r christiano was not used to int erpret this result as normal/abnormal . [place] [address]-02-28 09:49:00 Test Item Value Reference Range Interpretation Comments Neutrophils # (test code = Neutrophils 3.0 1.5-8.1 #) [place] [address]-02-28 09:49:00 Test Item Value Reference Range Interpretation Comments Lymphocytes # (test code = Lymphocytes 2.0 1.0-5.5 #) [place] [address]-02-28 09:49:00 Test Item Value Reference Range Interpretation Comments Monocytes # (test code 0.7 See_Comment [Aut omated message] The = Monocytes #) system which generated this result tra nsmitted reference range : <=0.8. The reference r christiano was not used to int erpret this result as normal/abnormal . [place] [address]-02-28 09:49:00 Test Item Value Reference Range Interpretation Comments Eosinophils # (test code 0.4 See_Comment [A utomated message] The = Eosinophils #) system [facility] h generated this result tra nsmitted reference range : <=0.5. The reference r christiano was not used to int erpret this result as normal/abnormal . [facility] HospitalGtipusiTAQWVGCOPU8791-67-06 09:49:00 Test Item Value Reference Range Interpretation Comments WBC (test code = WBC) 6.2 3.7-10.4 [facility] HospitalQvhpnonDNHAHDJCLP7937-19-27 09:49:00 Test Item Value Reference Range Interpretation Comments RBC (test code = RBC) 3.06 4.20-5.40 [facility] HospitalUmzwjkyBFWEFDKDOF6101-53-30 09:49:00 Test Item Value Reference Range Interpretation Comments Hgb (test code = Hgb) 9.2 12.0-16.0 [facility] HospitalYbobacoHTRNGEUCPP3054-73-35 09:49:00 Test Item Value Reference Range Interpretation Comments Hct (test code = Hct) 28.0 36.0-48.0 [facility] HospitalGqecjybQYWQCTANVH1289-68-09 09:49:00 Test Item Value Reference Range Interpretation Comments MCV (test code = MCV) 91.5 80.0-98.0 [facility] HospitalXklfqkdVUBTTGFXYE4153-81-48 09:49:00 Test Item Value Reference Range Interpretation Comments MCH (test code = MCH) 30.0 pg 27.0-31.0 [facility] HospitalGtuffvxPUSNFTNWBE4409-55-71 09:49:00 Test Item Value Reference Range Interpretation Comments MCHC (test code = MCHC) 32.7 32.0-36.0 [facility] HospitalBaddflnUGWWJJGYYT2429-03-83 09:49:00 Test Item Value Reference Range Interpretation Comments RDW (test code = RDW) 14.1 11.5-14.5 [facility] HospitalSpssxrpXSJTEHUECV0233-15-34 09:49:00 Test Item Value Reference Range Interpretation Comments Platelet (test code = Platelet) 136 133-450 [facility] HospitalBvvaogfTDXTBUGVEN4991-21-54 09:49:00 Test Item Value Reference Range Interpretation Comments MPV (test code = MPV) 7.7 7.4-10.4 [facility] HospitalOqknxcpDAFTBWENFK8811-64-53 09:49:00 Test Item Value Reference Range Interpretation Comments Segs (test code = Segs) 49.2 45.0-75.0 [facility] HospitalSnrybceVWSPLKEFGN9427-20-04 09:49:00 Test Item Value Reference Range Interpretation Comments Lymphocytes (test code = Lymphocytes) 33.0 20.0-40.0 [place] [address]-02-28 09:49:00 Test Item Value Reference Range Interpretation Comments Monocytes (test code = Monocytes) 10.5 2.0-12.0 [place] [address]-02-28 09:49:00 Test Item Value Reference Range Interpretation Comments Eosinophils (test code = 6.6 See_Comment [A utomated message] The Eosinophils) system which ge nerated this result tra nsmitted reference range : <=4.0. The reference r christiano was not used to int erpret this result as normal/abnormal . [place] [address]-02-28 09:49:00 Test Item Value Reference Range Interpretation Comments Basophils (test code = 0.7 See_Comment [Aut omated message] The Basophils) system which ge nerated this result tra nsmitted reference range : <=1.0. The reference r christiano was not used to int erpret this result as normal/abnormal . [place] [address]-02-28 09:49:00 Test Item Value Reference Range Interpretation Comments Neutrophils # (test code = Neutrophils 3.0 1.5-8.1 #) [place] [address]-02-28 09:49:00 Test Item Value Reference Range Interpretation Comments Lymphocytes # (test code = Lymphocytes 2.0 1.0-5.5 #) [place] [address]-02-28 09:49:00 Test Item Value Reference Range Interpretation Comments Monocytes # (test code 0.7 See_Comment [Aut omated message] The = Monocytes #) system which generated this result tra nsmitted reference range : <=0.8. The reference r christiano was not used to int erpret this result as normal/abnormal . [place] [address]-02-28 09:49:00 Test Item Value Reference Range Interpretation Comments Eosinophils # (test code 0.4 See_Comment [A utomated message] The = Eosinophils #) system whic h generated this result tra nsmitted reference range : <=0.5. The reference r christiano was not used to int erpret this result as normal/abnormal . [place] [address]-02-28 09:49:00 Test Item Value Reference Range Interpretation Comments WBC (test code = WBC) 6.2 3.7-10.4 [place] [address]-02-28 09:49:00 Test Item Value Reference Range Interpretation Comments RBC (test code = RBC) 3.06 4.20-5.40 [place] 638193-02-28 09:49:00 Test Item Value Reference Range Interpretation Comments Hgb (test code = Hgb) 9.2 12.0-16.0 [place] [address]-02-28 09:49:00 Test Item Value Reference Range Interpretation Comments Hct (test code = Hct) 28.0 36.0-48.0 [place] [address]-02-28 09:49:00 Test Item Value Reference Range Interpretation Comments MCV (test code = MCV) 91.5 80.0-98.0 [place] [address]-02-28 09:49:00 Test Item Value Reference Range Interpretation Comments MCH (test code = MCH) 30.0 pg 27.0-31.0 [place] [address]-02-28 09:49:00 Test Item Value Reference Range Interpretation Comments MCHC (test code = MCHC) 32.7 32.0-36.0 [place] 638193-02-28 09:49:00 Test Item Value Reference Range Interpretation Comments RDW (test code = RDW) 14.1 11.5-14.5 [place] [address]-02-28 09:49:00 Test Item Value Reference Range Interpretation Comments Platelet (test code = Platelet) 136 133-450 [place] 638193-02-28 09:49:00 Test Item Value Reference Range Interpretation Comments MPV (test code = MPV) 7.7 7.4-10.4 [place] 218493-02-28 09:49:00 Test Item Value Reference Range Interpretation Comments Glucose Lvl (test code = Glucose Lvl) 93 70-99 [place] 218493-02-28 09:49:00 Test Item Value Reference Range Interpretation Comments BUN (test code = BUN) 30 7-22 [place] 218493-02-28 09:49:00 Test Item Value Reference Range Interpretation Comments Creatinine Lvl (test code = Creatinine 2.50 0.50-1.40 Lvl) [place] 218493-02-28 09:49:00 Test Item Value Reference Range Interpretation Comments Sodium Lvl (test code = Sodium Lvl) 138 135-145 [place] 218493-02-28 09:49:00 Test Item Value Reference Range Interpretation Comments Potassium Lvl (test code = Potassium 5.1 3.5-5.1 Lvl) [place] 218493-02-28 09:49:00 Test Item Value Reference Range Interpretation Comments Chloride Lvl (test code = Chloride Lvl) 108 95-109 [place] [address]-02-28 09:49:00 Test Item Value Reference Range Interpretation Comments CO2 (test code = CO2) 30 24-32 [place] [address]-02-28 09:49:00 Test Item Value Reference Range Interpretation Comments Calcium Lvl (test code = Calcium Lvl) 8.0 8.5-10.5 [place] 218493-02-28 09:49:00 Test Item Value Reference Range Interpretation Comments AGAP (test code = AGAP) 5.1 10.0-20.0 [place] [address]-02-28 09:49:00 Test Item Value Reference Range Interpretation Comments eGFR (test code = eGFR) 19 [place] [address]-02-28 09:49:00 Test Item Value Reference Range Interpretation Comments Glucose Lvl (test code = Glucose Lvl) 93 70-99 [place] [address]-02-28 09:49:00 Test Item Value Reference Range Interpretation Comments BUN (test code = BUN) 30 7-22 [place] 711743-02-28 09:49:00 Test Item Value Reference Range Interpretation Comments Creatinine Lvl (test code = Creatinine 2.50 0.50-1.40 Lvl) [place] [address]-02-28 09:49:00 Test Item Value Reference Range Interpretation Comments Sodium Lvl (test code = Sodium Lvl) 138 135-145 [place] [address]-02-28 09:49:00 Test Item Value Reference Range Interpretation Comments Potassium Lvl (test code = Potassium 5.1 3.5-5.1 Lvl) [place] [address]-02-28 09:49:00 Test Item Value Reference Range Interpretation Comments Chloride Lvl (test code = Chloride Lvl) 108 95-109 [place] [address]-02-28 09:49:00 Test Item Value Reference Range Interpretation Comments CO2 (test code = CO2) 30 24-32 [facility]KyqmsjnXEJVDYZUH5134-04-10 09:49:00 Test Item Value Reference Range Interpretation Comments Calcium Lvl (test code = Calcium Lvl) 8.0 8.5-10.5 [facility] CenterCggpxlbTJRGCKKAL6117-20-99 09:49:00 Test Item Value Reference Range Interpretation Comments AGAP (test code = AGAP) 5.1 10.0-20.0 [facility] CenterAtdejqrDZWLLLEOS1036-35-33 09:49:00 Test Item Value Reference Range Interpretation Comments eGFR (test code = eGFR) 19 [facility]AbsbulwKXRVJSQNFE9372-79-73 09:49:00 Test Item Value Reference Range Interpretation Comments Segs (test code = Segs) 49.2 45.0-75.0 [facility] HospitalErlfgbjESUIREIKYR2274-53-61 09:49:00 Test Item Value Reference Range Interpretation Comments Lymphocytes (test code = Lymphocytes) 33.0 20.0-40.0 [facility] HospitalTmsqpkdPXWFSXPGMD2727-85-72 09:49:00 Test Item Value Reference Range Interpretation Comments Monocytes (test code = Monocytes) 10.5 2.0-12.0 [facility] HospitalBonklnhCUUZWGRYOA5865-61-77 09:49:00 Test Item Value Reference Range Interpretation Comments Eosinophils (test code = 6.6 See_Comment [A utomated message] The Eosinophils) system which ge nerated this result tra nsmitted reference range : <=4.0. The reference r christiano was not used to int erpret this result as normal/abnormal . [facility] HospitalCczntleVEVMZFGYBJ8082-55-68 09:49:00 Test Item Value Reference Range Interpretation Comments Basophils (test code = 0.7 See_Comment [Aut omated message] The Basophils) system which ge nerated this result tra nsmitted reference range : <=1.0. The reference r christiano was not used to int erpret this result as normal/abnormal . [facility] HospitalYbbljhxOLHKLOJNAD8428-74-15 09:49:00 Test Item Value Reference Range Interpretation Comments Neutrophils # (test code = Neutrophils 3.0 1.5-8.1 #) [facility] HospitalPsjbbdbIYPLEPJIHW0101-05-27 09:49:00 Test Item Value Reference Range Interpretation Comments Lymphocytes # (test code = Lymphocytes 2.0 1.0-5.5 #) [place] 638193-02-28 09:49:00 Test Item Value Reference Range Interpretation Comments Monocytes # (test code 0.7 See_Comment [Aut omated message] The = Monocytes #) system which generated this result tra nsmitted reference range : <=0.8. The reference r christiano was not used to int erpret this result as normal/abnormal . [facility] HospitalFzphdoaBBMARVYNHY1672-03-41 09:49:00 Test Item Value Reference Range Interpretation Comments Eosinophils # (test code 0.4 See_Comment [A utomated message] The = Eosinophils #) system whic h generated this result tra nsmitted reference range : <=0.5. The reference r christiano was not used to int erpret this result as normal/abnormal . [facility] HospitalXivtpxfYOEUFSCHYP0577-32-60 09:49:00 Test Item Value Reference Range Interpretation Comments WBC (test code = WBC) 6.2 3.7-10.4 [place] 638193-02-28 09:49:00 Test Item Value Reference Range Interpretation Comments RBC (test code = RBC) 3.06 4.20-5.40 [place] 638193-02-28 09:49:00 Test Item Value Reference Range Interpretation Comments Hgb (test code = Hgb) 9.2 12.0-16.0 [place] 638193-02-28 09:49:00 Test Item Value Reference Range Interpretation Comments Hct (test code = Hct) 28.0 36.0-48.0 [facility] HospitalGpvimbzKJHQEKCKIA4622-97-24 09:49:00 Test Item Value Reference Range Interpretation Comments MCV (test code = MCV) 91.5 80.0-98.0 [facility] HospitalAlqufhaVGYWACLLPE5918-84-65 09:49:00 Test Item Value Reference Range Interpretation Comments MCH (test code = MCH) 30.0 pg 27.0-31.0 [place] 638193-02-28 09:49:00 Test Item Value Reference Range Interpretation Comments MCHC (test code = MCHC) 32.7 32.0-36.0 [place] 638193-02-28 09:49:00 Test Item Value Reference Range Interpretation Comments RDW (test code = RDW) 14.1 11.5-14.5 [facility] HospitalCrqvzwnPWDTFTWKPK4194-55-37 09:49:00 Test Item Value Reference Range Interpretation Comments Platelet (test code = Platelet) 136 133-450 [place] [address]-02-28 09:49:00 Test Item Value Reference Range Interpretation Comments MPV (test code = MPV) 7.7 7.4-10.4 [place] [address]-02-28 09:49:00 Test Item Value Reference Range Interpretation Comments Segs (test code = Segs) 49.2 45.0-75.0 [place] [address]-02-28 09:49:00 Test Item Value Reference Range Interpretation Comments Lymphocytes (test code = Lymphocytes) 33.0 20.0-40.0 [place] [address]-02-28 09:49:00 Test Item Value Reference Range Interpretation Comments Monocytes (test code = Monocytes) 10.5 2.0-12.0 [place] [address]-02-28 09:49:00 Test Item Value Reference Range Interpretation Comments Eosinophils (test code = 6.6 See_Comment [A utomated message] The Eosinophils) system which ge nerated this result tra nsmitted reference range : <=4.0. The reference r christiano was not used to int erpret this result as normal/abnormal . [place] 638193-02-28 09:49:00 Test Item Value Reference Range Interpretation Comments Basophils (test code = 0.7 See_Comment [Aut omated message] The Basophils) system which ge nerated this result tra nsmitted reference range : <=1.0. The reference r christiano was not used to int erpret this result as normal/abnormal . [place] 638193-02-28 09:49:00 Test Item Value Reference Range Interpretation Comments Neutrophils # (test code = Neutrophils 3.0 1.5-8.1 #) [place] [address]-02-28 09:49:00 Test Item Value Reference Range Interpretation Comments Lymphocytes # (test code = Lymphocytes 2.0 1.0-5.5 #) [place] [address]-02-28 09:49:00 Test Item Value Reference Range Interpretation Comments Monocytes # (test code 0.7 See_Comment [Aut omated message] The = Monocytes #) system which generated this result tra nsmitted reference range : <=0.8. The reference r christiano was not used to int erpret this result as normal/abnormal . [facility] HospitalBeautceASUDXSQNCN1941-20-70 09:49:00 Test Item Value Reference Range Interpretation Comments Eosinophils # (test code 0.4 See_Comment [A utomated message] The = Eosinophils #) system whic h generated this result tra nsmitted reference range : <=0.5. The reference r christiano was not used to int erpret this result as normal/abnormal . [facility] HospitalLrnhupdVWXXAMWNXW7141-43-13 09:49:00 Test Item Value Reference Range Interpretation Comments WBC (test code = WBC) 6.2 3.7-10.4 [place] 638193-02-28 09:49:00 Test Item Value Reference Range Interpretation Comments RBC (test code = RBC) 3.06 4.20-5.40 [place] 638193-02-28 09:49:00 Test Item Value Reference Range Interpretation Comments Hgb (test code = Hgb) 9.2 12.0-16.0 [place] 638193-02-28 09:49:00 Test Item Value Reference Range Interpretation Comments Hct (test code = Hct) 28.0 36.0-48.0 [place] 638193-02-28 09:49:00 Test Item Value Reference Range Interpretation Comments MCV (test code = MCV) 91.5 80.0-98.0 [place] 638193-02-28 09:49:00 Test Item Value Reference Range Interpretation Comments MCH (test code = MCH) 30.0 pg 27.0-31.0 [place] 638193-02-28 09:49:00 Test Item Value Reference Range Interpretation Comments MCHC (test code = MCHC) 32.7 32.0-36.0 [place] 638193-02-28 09:49:00 Test Item Value Reference Range Interpretation Comments RDW (test code = RDW) 14.1 11.5-14.5 [place] 638193-02-28 09:49:00 Test Item Value Reference Range Interpretation Comments Platelet (test code = Platelet) 136 133-450 [facility] HospitalJiowlwvTHWBJMXMYV8514-41-41 09:49:00 Test Item Value Reference Range Interpretation Comments MPV (test code = MPV) 7.7 7.4-10.4 [place] 218493-02-28 09:49:00 Test Item Value Reference Range Interpretation Comments Glucose Lvl (test code = Glucose Lvl) 93 70-99 [place] 218493-02-28 09:49:00 Test Item Value Reference Range Interpretation Comments BUN (test code = BUN) 30 - [place] 218493-02-28 09:49:00 Test Item Value Reference Range Interpretation Comments Creatinine Lvl (test code = Creatinine 2.50 0.50-1.40 Lvl) [facility]2023-02-28 09:49:00 Test Item Value Reference Range Interpretation Comments Sodium Lvl (test code = Sodium Lvl) 138 135-145 [place] 218493-02-28 09:49:00 Test Item Value Reference Range Interpretation Comments Potassium Lvl (test code = Potassium 5.1 3.5-5.1 Lvl) [place] 218493-02-28 09:49:00 Test Item Value Reference Range Interpretation Comments Chloride Lvl (test code = Chloride Lvl) 108 95-109 [place] 218493-02-28 09:49:00 Test Item Value Reference Range Interpretation Comments CO2 (test code = CO2) 30 24-32 [place] 218493-02-28 09:49:00 Test Item Value Reference Range Interpretation Comments Calcium Lvl (test code = Calcium Lvl) 8.0 8.5-10.5 [place] 218493-02-28 09:49:00 Test Item Value Reference Range Interpretation Comments AGAP (test code = AGAP) 5.1 10.0-20.0 [place] 218493-02-28 09:49:00 Test Item Value Reference Range Interpretation Comments eGFR (test code = eGFR) 19 [place] 711743-02-28 09:49:00 Test Item Value Reference Range Interpretation Comments Glucose Lvl (test code = Glucose Lvl) 93 70-99 [place] 711743-02-28 09:49:00 Test Item Value Reference Range Interpretation Comments BUN (test code = BUN) 30 - [place] 711743-02-28 09:49:00 Test Item Value Reference Range Interpretation Comments Creatinine Lvl (test code = Creatinine 2.50 0.50-1.40 Lvl) [facility]381[facility] 09:49:00 Test Item Value Reference Range Interpretation Comments Sodium Lvl (test code = Sodium Lvl) 138 135-145 [place] 711743-02-28 09:49:00 Test Item Value Reference Range Interpretation Comments Potassium Lvl (test code = Potassium 5.1 3.5-5.1 Lvl) [facility]lnkdrdQIKPTOWYY8856-62-86 09:49:00 Test Item Value Reference Range Interpretation Comments Chloride Lvl (test code = Chloride Lvl) 108 95-109 [place] 711743-02-28 09:49:00 Test Item Value Reference Range Interpretation Comments CO2 (test code = CO2) 30 24-32 [place] 711743-02-28 09:49:00 Test Item Value Reference Range Interpretation Comments Calcium Lvl (test code = Calcium Lvl) 8.0 8.5-10.5 [place] 711743-02-28 09:49:00 Test Item Value Reference Range Interpretation Comments AGAP (test code = AGAP) 5.1 10.0-20.0 [place] 711743-02-28 09:49:00 Test Item Value Reference Range Interpretation Comments eGFR (test code = eGFR) 19 [facility]HAW[facility]WHMDQ9152[facility]39-52 09:49:00 Test Item Value Reference Range Interpretation Comments Segs (test code = Segs) 49.2 45.0-75.0 [facility] HospitalGziyaadQQWHTJOJBX3505-47-33 09:49:00 Test Item Value Reference Range Interpretation Comments Lymphocytes (test code = Lymphocytes) 33.0 20.0-40.0 [place] 638193-02-28 09:49:00 Test Item Value Reference Range Interpretation Comments Monocytes (test code = Monocytes) 10.5 2.0-12.0 [place] 638193-02-28 09:49:00 Test Item Value Reference Range Interpretation Comments Eosinophils (test code = 6.6 See_Comment [A utomated message] The Eosinophils) system which ge nerated this result tra nsmitted reference range : <=4.0. The reference r christiano was not used to int erpret this result as normal/abnormal . [facility] HospitalBvtempvMUQVBNMOER1363-85-43 09:49:00 Test Item Value Reference Range Interpretation Comments Basophils (test code = 0.7 See_Comment [Aut omated message] The Basophils) system which ge nerated this result tra nsmitted reference range : <=1.0. The reference r christiano was not used to int erpret this result as normal/abnormal . [place] 638193-02-28 09:49:00 Test Item Value Reference Range Interpretation Comments Neutrophils # (test code = Neutrophils 3.0 1.5-8.1 #) [place] 638193-02-28 09:49:00 Test Item Value Reference Range Interpretation Comments Lymphocytes # (test code = Lymphocytes 2.0 1.0-5.5 #) [place] [address]-02-28 09:49:00 Test Item Value Reference Range Interpretation Comments Monocytes # (test code 0.7 See_Comment [Aut omated message] The = Monocytes #) system which generated this result tra nsmitted reference range : <=0.8. The reference r christiano was not used to int erpret this result as normal/abnormal . [place] 638193-02-28 09:49:00 Test Item Value Reference Range Interpretation Comments Eosinophils # (test code 0.4 See_Comment [A utomated message] The = Eosinophils #) system whic h generated this result tra nsmitted reference range : <=0.5. The reference r christiano was not used to int erpret this result as normal/abnormal . [place] 638193-02-28 09:49:00 Test Item Value Reference Range Interpretation Comments WBC (test code = WBC) 6.2 3.7-10.4 [place] 638193-02-28 09:49:00 Test Item Value Reference Range Interpretation Comments RBC (test code = RBC) 3.06 4.20-5.40 [place] [address]-02-28 09:49:00 Test Item Value Reference Range Interpretation Comments Hgb (test code = Hgb) 9.2 12.0-16.0 [place] [address]-02-28 09:49:00 Test Item Value Reference Range Interpretation Comments Hct (test code = Hct) 28.0 36.0-48.0 [place] [address]-02-28 09:49:00 Test Item Value Reference Range Interpretation Comments MCV (test code = MCV) 91.5 80.0-98.0 [facility]QcbtblwSXVVOHSSBH8712-49-54 09:49:00 Test Item Value Reference Range Interpretation Comments MCH (test code = MCH) 30.0 pg 27.0-31.0 [facility] HospitalGxedsjvIQHZLMWXDF2596-48-27 09:49:00 Test Item Value Reference Range Interpretation Comments MCHC (test code = MCHC) 32.7 32.0-36.0 [facility] HospitalWqfoxhiYCCITUMNKK6463-14-86 09:49:00 Test Item Value Reference Range Interpretation Comments RDW (test code = RDW) 14.1 11.5-14.5 [place] 638193-02-28 09:49:00 Test Item Value Reference Range Interpretation Comments Platelet (test code = Platelet) 136 133-450 [facility] HospitalGljmixvHHNLUKUSIW6782-83-93 09:49:00 Test Item Value Reference Range Interpretation Comments MPV (test code = MPV) 7.7 7.4-10.4 [place] 638193-02-28 09:49:00 Test Item Value Reference Range Interpretation Comments Segs (test code = Segs) 49.2 45.0-75.0 [facility] HospitalPzveyugGESHCMIBWU9233-96-58 09:49:00 Test Item Value Reference Range Interpretation Comments Lymphocytes (test code = Lymphocytes) 33.0 20.0-40.0 [facility] HospitalEwrosnqDJPBNKAZTE1311-35-39 09:49:00 Test Item Value Reference Range Interpretation Comments Monocytes (test code = Monocytes) 10.5 2.0-12.0 [facility] HospitalIrdnodiKUFQFFYHVO1035-81-69 09:49:00 Test Item Value Reference Range Interpretation Comments Eosinophils (test code = 6.6 See_Comment [A utomated message] The Eosinophils) system which ge nerated this result tra nsmitted reference range : <=4.0. The reference r christiano was not used to int erpret this result as normal/abnormal . [facility] HospitalCkizooiXRQBHCARRT2716-34-57 09:49:00 Test Item Value Reference Range Interpretation Comments Basophils (test code = 0.7 See_Comment [Aut omated message] The Basophils) system which ge nerated this result tra nsmitted reference range : <=1.0. The reference r christiano was not used to int erpret this result as normal/abnormal . [place] [address]-02-28 09:49:00 Test Item Value Reference Range Interpretation Comments Neutrophils # (test code = Neutrophils 3.0 1.5-8.1 #) [place] 638193-02-28 09:49:00 Test Item Value Reference Range Interpretation Comments Lymphocytes # (test code = Lymphocytes 2.0 1.0-5.5 #) [place] 638193-02-28 09:49:00 Test Item Value Reference Range Interpretation Comments Monocytes # (test code 0.7 See_Comment [Aut omated message] The = Monocytes #) system which generated this result tra nsmitted reference range : <=0.8. The reference r christiano was not used to int erpret this result as normal/abnormal . [place] [address]-02-28 09:49:00 Test Item Value Reference Range Interpretation Comments Eosinophils # (test code 0.4 See_Comment [A utomated message] The = Eosinophils #) system whic h generated this result tra nsmitted reference range : <=0.5. The reference r christiano was not used to int erpret this result as normal/abnormal . [facility] HospitalKpnxcyrSFCORGBGSW9170-42-94 09:49:00 Test Item Value Reference Range Interpretation Comments WBC (test code = WBC) 6.2 3.7-10.4 [place] [address]-02-28 09:49:00 Test Item Value Reference Range Interpretation Comments RBC (test code = RBC) 3.06 4.20-5.40 [place] 638193-02-28 09:49:00 Test Item Value Reference Range Interpretation Comments Hgb (test code = Hgb) 9.2 12.0-16.0 [place] 638193-02-28 09:49:00 Test Item Value Reference Range Interpretation Comments Hct (test code = Hct) 28.0 36.0-48.0 [place] [address]-02-28 09:49:00 Test Item Value Reference Range Interpretation Comments MCV (test code = MCV) 91.5 80.0-98.0 [place] [address]-02-28 09:49:00 Test Item Value Reference Range Interpretation Comments MCH (test code = MCH) 30.0 pg 27.0-31.0 [place] [address]-02-28 09:49:00 Test Item Value Reference Range Interpretation Comments MCHC (test code = MCHC) 32.7 32.0-36.0 [place] [address]-02-28 09:49:00 Test Item Value Reference Range Interpretation Comments RDW (test code = RDW) 14.1 11.5-14.5 [place] [address]-02-28 09:49:00 Test Item Value Reference Range Interpretation Comments Platelet (test code = Platelet) 136 133-450 [place] [address]-02-28 09:49:00 Test Item Value Reference Range Interpretation Comments MPV (test code = MPV) 7.7 7.4-10.4 [place] 218493-02-28 09:49:00 Test Item Value Reference Range Interpretation Comments Glucose Lvl (test code = Glucose Lvl) 93 70-99 [place] 218493-02-28 09:49:00 Test Item Value Reference Range Interpretation Comments BUN (test code = BUN) 30 7-22 [place] 218493-02-28 09:49:00 Test Item Value Reference Range Interpretation Comments Creatinine Lvl (test code = Creatinine 2.50 0.50-1.40 Lvl) [place] 218493-02-28 09:49:00 Test Item Value Reference Range Interpretation Comments Sodium Lvl (test code = Sodium Lvl) 138 135-145 [place] 218493-02-28 09:49:00 Test Item Value Reference Range Interpretation Comments Potassium Lvl (test code = Potassium 5.1 3.5-5.1 Lvl) [place] 218493-02-28 09:49:00 Test Item Value Reference Range Interpretation Comments Chloride Lvl (test code = Chloride Lvl) 108 95-109 [place] 218493-02-28 09:49:00 Test Item Value Reference Range Interpretation Comments CO2 (test code = CO2) 30 24-32 [place] 218493-02-28 09:49:00 Test Item Value Reference Range Interpretation Comments Calcium Lvl (test code = Calcium Lvl) 8.0 8.5-10.5 [place] 218493-02-28 09:49:00 Test Item Value Reference Range Interpretation Comments AGAP (test code = AGAP) 5.1 10.0-20.0 [facility] [id number] 09:49:00 Test Item Value Reference Range Interpretation Comments eGFR (test code = eGFR) 19 [place] 711743-02-28 09:49:00 Test Item Value Reference Range Interpretation Comments Glucose Lvl (test code = Glucose Lvl) 93 70-99 [place] [address]-02-28 09:49:00 Test Item Value Reference Range Interpretation Comments BUN (test code = BUN) 30 7-22 [place] 711743-02-28 09:49:00 Test Item Value Reference Range Interpretation Comments Creatinine Lvl (test code = Creatinine 2.50 0.50-1.40 Lvl) [place] 711743-02-28 09:49:00 Test Item Value Reference Range Interpretation Comments Sodium Lvl (test code = Sodium Lvl) 138 135-145 [place] 711743-02-28 09:49:00 Test Item Value Reference Range Interpretation Comments Potassium Lvl (test code = Potassium 5.1 3.5-5.1 Lvl) [facility]CjgxxczMXHTMHHYI8251-16-73 09:49:00 Test Item Value Reference Range Interpretation Comments Chloride Lvl (test code = Chloride Lvl) 108 95-109 [facility] CenterRjsjxwfXKURLMGTB7554-11-82 09:49:00 Test Item Value Reference Range Interpretation Comments CO2 (test code = CO2) 30 24-32 [facility] CenterGotuhltSDKROJVDL8270-71-62 09:49:00 Test Item Value Reference Range Interpretation Comments Calcium Lvl (test code = Calcium Lvl) 8.0 8.5-10.5 [place] 711743-02-28 09:49:00 Test Item Value Reference Range Interpretation Comments AGAP (test code = AGAP) 5.1 10.0-20.0 [place] 711743-02-28 09:49:00 Test Item Value Reference Range Interpretation Comments eGFR (test code = eGFR) 19 [facility] HospitalPqjqaijYGOZGDDEJQ1084-52-09 09:49:00 Test Item Value Reference Range Interpretation Comments Segs (test code = Segs) 49.2 45.0-75.0 [facility] HospitalUjsvtmpXXXMEBBMTH1972-73-41 09:49:00 Test Item Value Reference Range Interpretation Comments Lymphocytes (test code = Lymphocytes) 33.0 20.0-40.0 [place] [address]-02-28 09:49:00 Test Item Value Reference Range Interpretation Comments Monocytes (test code = Monocytes) 10.5 2.0-12.0 [place] [address]-02-28 09:49:00 Test Item Value Reference Range Interpretation Comments Eosinophils (test code = 6.6 See_Comment [A utomated message] The Eosinophils) system which ge nerated this result tra nsmitted reference range : <=4.0. The reference r christiano was not used to int erpret this result as normal/abnormal . [place] 638193-02-28 09:49:00 Test Item Value Reference Range Interpretation Comments Basophils (test code = 0.7 See_Comment [Aut omated message] The Basophils) system which ge nerated this result tra nsmitted reference range : <=1.0. The reference r christiano was not used to int erpret this result as normal/abnormal . [place] 638193-02-28 09:49:00 Test Item Value Reference Range Interpretation Comments Neutrophils # (test code = Neutrophils 3.0 1.5-8.1 #) [place] 638193-02-28 09:49:00 Test Item Value Reference Range Interpretation Comments Lymphocytes # (test code = Lymphocytes 2.0 1.0-5.5 #) [place] 638193-02-28 09:49:00 Test Item Value Reference Range Interpretation Comments Monocytes # (test code 0.7 See_Comment [Aut omated message] The = Monocytes #) system which generated this result tra nsmitted reference range : <=0.8. The reference r christiano was not used to int erpret this result as normal/abnormal . [place] 638193-02-28 09:49:00 Test Item Value Reference Range Interpretation Comments Eosinophils # (test code 0.4 See_Comment [A utomated message] The = Eosinophils #) system whic h generated this result tra nsmitted reference range : <=0.5. The reference r christiano was not used to int erpret this result as normal/abnormal . [facility] HospitalLffsapiLPDRLMOECN4151-13-61 09:49:00 Test Item Value Reference Range Interpretation Comments WBC (test code = WBC) 6.2 3.7-10.4 [place] [address]-02-28 09:49:00 Test Item Value Reference Range Interpretation Comments RBC (test code = RBC) 3.06 4.20-5.40 [place] [address]-02-28 09:49:00 Test Item Value Reference Range Interpretation Comments Hgb (test code = Hgb) 9.2 12.0-16.0 [place] [address]-02-28 09:49:00 Test Item Value Reference Range Interpretation Comments Hct (test code = Hct) 28.0 36.0-48.0 [place] 638193-02-28 09:49:00 Test Item Value Reference Range Interpretation Comments MCV (test code = MCV) 91.5 80.0-98.0 [place] [address]-02-28 09:49:00 Test Item Value Reference Range Interpretation Comments MCH (test code = MCH) 30.0 pg 27.0-31.0 [place] [address]-02-28 09:49:00 Test Item Value Reference Range Interpretation Comments MCHC (test code = MCHC) 32.7 32.0-36.0 [place] 638193-02-28 09:49:00 Test Item Value Reference Range Interpretation Comments RDW (test code = RDW) 14.1 11.5-14.5 [place] 638193-02-28 09:49:00 Test Item Value Reference Range Interpretation Comments Platelet (test code = Platelet) 136 133-450 [place] 638193-02-28 09:49:00 Test Item Value Reference Range Interpretation Comments MPV (test code = MPV) 7.7 7.4-10.4 [place] 638193-02-28 09:49:00 Test Item Value Reference Range Interpretation Comments Segs (test code = Segs) 49.2 45.0-75.0 [place] [address]-02-28 09:49:00 Test Item Value Reference Range Interpretation Comments Lymphocytes (test code = Lymphocytes) 33.0 20.0-40.0 [place] [address]-02-28 09:49:00 Test Item Value Reference Range Interpretation Comments Monocytes (test code = Monocytes) 10.5 2.0-12.0 [place] [address]-02-28 09:49:00 Test Item Value Reference Range Interpretation Comments Eosinophils (test code = 6.6 See_Comment [A utomated message] The Eosinophils) system which ge nerated this result tra nsmitted reference range : <=4.0. The reference r christiano was not used to int erpret this result as normal/abnormal . [place] 638193-02-28 09:49:00 Test Item Value Reference Range Interpretation Comments Basophils (test code = 0.7 See_Comment [Aut omated message] The Basophils) system which ge nerated this result tra nsmitted reference range : <=1.0. The reference r christiano was not used to int erpret this result as normal/abnormal . [place] 638193-02-28 09:49:00 Test Item Value Reference Range Interpretation Comments Neutrophils # (test code = Neutrophils 3.0 1.5-8.1 #) [place] 638193-02-28 09:49:00 Test Item Value Reference Range Interpretation Comments Lymphocytes # (test code = Lymphocytes 2.0 1.0-5.5 #) [place] 638193-02-28 09:49:00 Test Item Value Reference Range Interpretation Comments Monocytes # (test code 0.7 See_Comment [Aut omated message] The = Monocytes #) system which generated this result tra nsmitted reference range : <=0.8. The reference r christiano was not used to int erpret this result as normal/abnormal . [facility] HospitalQndbgteRYDIXMZWVE9336-66-63 09:49:00 Test Item Value Reference Range Interpretation Comments Eosinophils # (test code 0.4 See_Comment [A utomated message] The = Eosinophils #) system whic h generated this result tra nsmitted reference range : <=0.5. The reference r christiano was not used to int erpret this result as normal/abnormal . [place] 638193-02-28 09:49:00 Test Item Value Reference Range Interpretation Comments WBC (test code = WBC) 6.2 3.7-10.4 [place] 638193-02-28 09:49:00 Test Item Value Reference Range Interpretation Comments RBC (test code = RBC) 3.06 4.20-5.40 [place] 638193-02-28 09:49:00 Test Item Value Reference Range Interpretation Comments Hgb (test code = Hgb) 9.2 12.0-16.0 [facility]QrgrbahUNLPSPINEY4593-38-65 09:49:00 Test Item Value Reference Range Interpretation Comments Hct (test code = Hct) 28.0 36.0-48.0 [facility] HospitalMjdptgfYBNXVD9131-63-18 14:44:19 Test Item Value Reference Range Interpretation [...] Additional severe spinal canal narrowing at C6-7. [facility] HospitalKnlubruGVVIZR1389-58-77 14:44:19 Test Item Value Reference Range Interpretation [...] Additional severe spinal canal narrowing at C6-7. [facility] HospitalFjpvlzpTLUKEJ7588-14-31 14:44:19 Test Item Value Reference Range Interpretation [...] Additional severe spinal canal narrowing at C6-7. [facility] HospitalUkgomdbMHPJWE0652-68-12 14:44:19 Test Item Value Reference Range Interpretation [...] Additional severe spinal canal narrowing at C6-7. [facility] HospitalKfiaojkKADGKD3334-30-71 14:44:19 Test Item Value Reference Range Interpretation [...] Additional severe spinal canal narrowing at C6-7. [facility] HospitalLnowthmYDWIWJ2995-40-78 14:44:19 Test Item Value Reference Range Interpretation [...] Additional severe spinal canal narrowing at C6-7. [facility] HospitalOispnbmTKMUKF5160-50-19 14:44:19 Test Item Value Reference Range Interpretation [...] canal narrowing at C6-7. [facility]KcssrxjRUVPTDIIKW0444-38-40 10:40:00 Test Item Value Reference Range Interpretation Comments Coronavirus (COVID-19) Not Detected (11/27/22 JONATHAN (test code = 4:40 AM) Coronavirus (COVID-19) JONATHAN) [facility]MtfzcpyOVIKOYBUEU7850-38-61 10:40:00 Test Item Value Reference Range Interpretation Comments Coronavirus (COVID-19) Not Detected (11/27/22 JONATHAN (test code = 4:40 AM) Coronavirus (COVID-19) JONATHAN) [place] 057743-02-27 10:40:00 Test Item Value Reference Range Interpretation Comments Coronavirus (COVID-19) Not Detected (11/27/22 JONATHAN (test code = 4:40 AM) Coronavirus (COVID-19) JONATHAN) [place] [address]-02-27 10:40:00 Test Item Value Reference Range Interpretation Comments Coronavirus (COVID-19) Not Detected (11/27/22 JONATHAN (test code = 4:40 AM) Coronavirus (COVID-19) JONATHAN) [facility] HospitalVqpdlbgXNYBVKKYXE2135-06-19 10:40:00 Test Item Value Reference Range Interpretation Comments Coronavirus (COVID-19) Not Detected (11/27/22 JONATHAN (test code = 4:40 AM) Coronavirus (COVID-19) JONATHAN) [place] [address]-02-27 10:40:00 Test Item Value Reference Range Interpretation Comments Coronavirus (COVID-19) Not Detected (11/27/22 JONATHAN (test code = 4:40 AM) Coronavirus (COVID-19) JONATHAN) [place] [address]-02-27 10:40:00 Test Item Value Reference Range Interpretation Comments Coronavirus (COVID-19) Not Detected (11/27/22 JONATHAN (test code = 4:40 AM) Coronavirus (COVID-19) JONATHAN) [place] [address]-02-27 10:40:00 Test Item Value Reference Range Interpretation Comments Coronavirus (COVID-19) Not Detected (11/27/22 JONATHAN (test code = 4:40 AM) Coronavirus (COVID-19) JONATHAN) [place] [address]-02-27 10:40:00 Test Item Value Reference Range Interpretation Comments Coronavirus (COVID-19) Not Detected (11/27/22 JONATHAN (test code = 4:40 AM) Coronavirus (COVID-19) JONATHAN) [place] [address]-02-27 10:40:00 Test Item Value Reference Range Interpretation Comments Coronavirus (COVID-19) Not Detected (11/27/22 JONATHAN (test code = 4:40 AM) Coronavirus (COVID-19) JONATHAN) [place] [address]-02-27 10:40:00 Test Item Value Reference Range Interpretation Comments Coronavirus (COVID-19) Not Detected (11/27/22 JONATHAN (test code = 4:40 AM) Coronavirus (COVID-19) JONATHAN) [place] [address]-02-27 10:40:00 Test Item Value Reference Range Interpretation Comments Coronavirus (COVID-19) Not Detected (11/27/22 JONATHAN (test code = 4:40 AM) Coronavirus (COVID-19) JONATHAN) [place] [address]-02-27 10:40:00 Test Item Value Reference Range Interpretation Comments Coronavirus (COVID-19) Not Detected (11/27/22 JONATHAN (test code = 4:40 AM) Coronavirus (COVID-19) JONATHAN) [place] [address]-02-27 10:40:00 Test Item Value Reference Range Interpretation Comments Coronavirus (COVID-19) Not Detected (11/27/22 JONATHAN (test code = 4:40 AM) Coronavirus (COVID-19) JONATHAN) [facility]qumenhLDDFDK6105[facility]87-08 07:58:03 Test Item Value Reference Range Interpretation [...] at 11/27/2022 2:31 by Urbano Ashton MD [facility] HospitalVuhdicbCKLNBK5894-22-65 07:58:03 Test Item Value Reference Range Interpretation Comments RADRPT (test code = EXAM: CT BRAIN WITHOUT RADRPT) CONTRASTDATE: 11/27/2022INDICATION: - pain post-trauma.COMPARISON: CT head November 26 and 21, 2023.TECHNIQUE: Axial CT images of the brain were [...] at 11/27/2022 2:31 by Urbano Ashton [facility] HospitalBllhhzqHBMGQX1461-40-77 07:58:03 Test Item Value Reference Range Interpretation [...] at 11/27/2022 2:31 by Urbano Ashton [facility] HospitalNpvbqllFGLSXO3545-50-55 07:58:03 Test Item Value Reference Range Interpretation [...] at 11/27/2022 2:31 by Urbano Ashton [facility] HospitalCghvbhqXDNBNZ9229-67-09 07:58:03 Test Item Value Reference Range Interpretation [...] at 11/27/2022 2:31 by [facility]rbano Ashton [facility]NkkmnusDQXWQR1128-56-34 07:58:03 Test Item Value Reference Range Interpretation [...] at 11/27/2022 2:31 by Urbano Ashton [facility] HospitalOdksapnPXFSJB2140-74-56 07:58:03 Test Item Value Reference Range Interpretation [...] at 11/27/2022 2:31 by Urbano Ashton MD [facility]sB[facility] CenterCR2 NGCOUUN1830-01-02 07:22:00 Test Item Value Reference Range Interpretation Comments ABO/Rh (test code = ABO/Rh) O POS [facility] Cart[employer]cuer UXKLIXI8326-95-63 07:22:00 Test Item Value Reference Range Interpretation Comments Antibody Scrn (test Negative (11/27/22 1:22 code = Antibody Scrn) AM) [facility] [employer] [id number] 07:22:00 Test Item Value Reference Range Interpretation Comments ABO/Rh (test code = ABO/Rh) O POS [facility] Cart[employer]cuer [id number] 07:22:00 Test Item Value Reference Range Interpretation Comments Antibody Scrn (test Negative (11/27/22 1:22 code = Antibody Scrn) AM) [facility] IICR2 [id number] 07:22:00 Test Item Value Reference Range Interpretation Comments ABO/Rh (test code = ABO/Rh) O POS [facility] [employer] [id number] 07:22:00 Test Item Value Reference Range Interpretation Comments Antibody Scrn (test Negative (11/27/22 1:22 code = Antibody Scrn) AM) [facility] [id number] 07:22:00 Test Item Value Reference Range Interpretation Comments ABO/Rh (test code = ABO/Rh) O POS [facility] [id number] 07:22:00 Test Item Value Reference Range Interpretation Comments Antibody Scrn (test Negative (11/27/22 1:22 code = Antibody Scrn) AM) [facility] [employer] [id number] 07:22:00 Test Item Value Reference Range Interpretation Comments ABO/Rh (test code = ABO/Rh) O [facility] [id number] 07:22:00 Test Item Value Reference Range Interpretation Comments Antibody Scrn (test Negative (11/27/22 1:22 code = Antibody Scrn) AM) [facility] [id number] 07:22:00 Test Item Value Reference Range Interpretation Comments ABO/Rh (test code = ABO/Rh) O [facility] [id number] 07:22:00 Test Item Value Reference Range Interpretation Comments Antibody Scrn (test Negative (11/27/22 1:22 code = Antibody Scrn) AM) [facility] [employer] [id number] 07:22:00 Test Item Value Reference Range Interpretation Comments ABO/Rh (test code = ABO/Rh) O [facility] [id number] 07:22:00 Test Item Value Reference Range Interpretation Comments Antibody Scrn (test Negative (11/27/22 1:22 code = Antibody Scrn) AM) [facility] [employer] [id number] 07:22:00 Test Item Value Reference Range Interpretation Comments ABO/Rh (test code = ABO/Rh) O [facility] [employer] [id number] 07:22:00 Test Item Value Reference Range Interpretation Comments Antibody Scrn (test Negative (11/27/22 1:22 code = Antibody Scrn) AM) [facility] [employer] [id number] 07:22:00 Test Item Value Reference Range Interpretation Comments ABO/Rh (test code = ABO/Rh) O [facility] HospitalEwirelessgearAB[facility] [employer] [id number] 07:22:00 Test Item Value Reference Range Interpretation Comments Antibody Scrn (test Negative (11/27/22 1:22 code = Antibody Scrn) AM) [facility] [id number] 07:22:00 Test Item Value Reference Range Interpretation Comments ABO/Rh (test code = ABO/Rh) O POS [facility] [id number] 07:22:00 Test Item Value Reference Range Interpretation Comments Antibody Scrn (test Negative (11/27/22 1:22 code = Antibody Scrn) AM) [facility] [id number] 07:22:00 Test Item Value Reference Range Interpretation Comments ABO/Rh (test code = ABO/Rh) O [facility] [employer] [facility] [place] [id number] 07:22:00 Test Item Value Reference Range Interpretation Comments Antibody Scrn (test Negative (11/27/22 1:22 code = Antibody Scrn) AM) [facility] [employer] [facility] [place] [id number] 07:22:00 Test Item Value Reference Range Interpretation Comments ABO/Rh (test code = ABO/Rh) O [facility] [id number] 07:22:00 Test Item Value Reference Range Interpretation Comments Antibody Scrn (test Negative (11/27/22 1:22 code = Antibody Scrn) AM) [facility] [id number] 07:22:00 Test Item Value Reference Range Interpretation Comments ABO/Rh (test code = ABO/Rh) O [facility] [id number] 07:22:00 Test Item Value Reference Range Interpretation Comments Antibody Scrn (test Negative (11/27/22 1:22 code = Antibody Scrn) AM) [facility]Ewire[facility]arSA[facility] [id number] 07:22:00 Test Item Value Reference Range Interpretation Comments ABO/Rh (test code = ABO/Rh) O [facility] CartRescuer [id number] 07:22:00 Test Item Value Reference Range Interpretation Comments Antibody Scrn (test Negative (11/27/22 1:22 code = Antibody Scrn) AM) [id number] 06:55:28 Test Item Value Reference Range Interpretation Comments RADRPT (test code EXAM: CT CERVICAL SPINE = RADRPT) WITHOUT CONTRASTDATE: 11/27/2022 0:49INDICATION: Status post fall, pain after trauma. Following trauma transfer for higher level of care request for outside film interpretation CT cervical spine without contrast performed 11/26/2022 [facility] [place] None.TECHNIQUE: Volumetric CT of the cervical spine is acquired without contrast. Axial, coronal and sagittal images are provided. IV contrast: None.DLP: Refer to CT protocol formUT SECTION: ERFINDINGS: The spine is imaged from the skull base to the level of T2/T3.Mixing Operator: Noncontributory.Bones:There is generalized decreased bone mineral density.There [...] calcifications are present.6. Agree with outside report. [facility] [id number] 06:55:28 Test Item Value Reference Range Interpretation Comments RADRPT (test code EXAM: CT CERVICAL SPINE = RADRPT) WITHOUT CONTRASTDATE: 11/27/2022 0:49INDICATION: Status post fall, pain after trauma. Following trauma transfer for higher level of care request for outside film interpretation CT cervical spine without contrast performed 11/26/2022 at 2044 [facility] [place] None.TECHNIQUE: Volumetric CT of the cervical spine is acquired without contrast. Axial, coronal and sagittal images are provided. IV contrast: None.DLP: Refer to CT protocol formUT SECTION: ERFINDINGS: The spine is imaged from the skull base to the level of T2/T3.Mixing Operator: Noncontributory.Bones:There is generalized decreased bone mineral density.There [...] calcifications are present.6. Agree with outside report. [facility] [id number] 06:55:28 Test Item Value Reference Range Interpretation Comments RADRPT (test code EXAM: CT CERVICAL SPINE = RADRPT) WITHOUT CONTRASTDATE: 11/27/2022 0:49INDICATION: Status post fall, pain after trauma. Following trauma transfer for higher level of care request for outside film interpretation CT cervical spine without contrast performed 11/26/2022 at 2044 hours [facility] [place]: None.TECHNIQUE: Volumetric CT of the cervical spine is acquired without contrast. Axial, coronal and sagittal images are provided. IV contrast: None.DLP: Refer to CT protocol formUT SECTION: ERFINDINGS: The spine is imaged from the skull base to the level of T2/T3.Mixing Operator: Noncontributory.Bones:There is generalized decreased bone mineral density.There [...] calcifications are present.6. Agree with outside report. [facility] [id number] 06:55:28 Test Item Value Reference Range Interpretation Comments RADRPT (test code EXAM: CT CERVICAL SPINE = RADRPT) WITHOUT CONTRASTDATE: 11/27/2022 0:49INDICATION: Status post fall, pain after trauma. Following trauma transfer for higher level of care request for outside film interpretation CT cervical spine without contrast performed 11/26/2022 at 2044 hours [facility] [place]: None.TECHNIQUE: Volumetric CT of the cervical spine is acquired without contrast. Axial, coronal and sagittal images are provided. IV contrast: None.DLP: Refer to CT protocol formUT SECTION: ERFINDINGS: The spine is imaged from the skull base to the level of T2/T3.Mixing Operator: Noncontributory.Bones:There is generalized decreased bone mineral density.There [...] calcifications are present.6. Agree with outside report. [facility] [id number] 06:55:28 Test Item Value Reference Range Interpretation Comments RADRPT (test code EXAM: CT CERVICAL SPINE = RADRPT) WITHOUT CONTRASTDATE: 11/27/2022 0:49INDICATION: Status post fall, pain after trauma. Following trauma transfer for higher level of care request for outside film interpretation CT cervical spine without contrast performed 11/26/2022 at 2044 hours [facility] [place]: None.TECHNIQUE: Volumetric CT of the cervical spine is acquired without contrast. Axial, coronal and sagittal images are provided. IV contrast: None.DLP: Refer to CT protocol formUT SECTION: ERFINDINGS: The spine is imaged from the skull base to the level of T2/T3.Mixing Operator: Noncontributory.Bones:There is generalized decreased bone mineral density.There [...] calcifications are present.6. Agree with outside report. [facility] [id number] 06:55:28 Test Item Value Reference Range Interpretation Comments RADRPT (test code EXAM: CT CERVICAL SPINE = RADRPT) WITHOUT CONTRASTDATE: 11/27/2022 0:49INDICATION: Status post fall, pain after trauma. Following trauma transfer for higher level of care request for outside film interpretation CT cervical spine without contrast performed 11/26/2022 at 2044 hours [facility]: None.TECHNIQUE: Volumetric CT of the cervical spine is acquired without contrast. Axial, coronal and sagittal images are provided. IV contrast: None.DLP: Refer to CT protocol formUT SECTION: ERFINDINGS: The spine is imaged from the skull base to the level of T2/T3.Mixing Operator: Noncontributory.Bones:There is generalized decreased bone mineral density.There [...] calcifications are present.6. Agree with outside report. [facility] [id number] 06:55:28 Test Item Value Reference Range Interpretation Comments RADRPT (test code EXAM: CT CERVICAL SPINE = RADRPT) WITHOUT CONTRASTDATE: 11/27/2022 0:49INDICATION: Status post fall, pain after trauma. Following trauma transfer for higher level of care request for outside film interpretation CT cervical spine without contrast performed 11/26/2022 at 2044 hours [facility]: None.TECHNIQUE: Volumetric CT of the cervical spine is acquired without contrast. Axial, coronal and sagittal images are provided. IV contrast: None.DLP: Refer to CT protocol formUT SECTION: ERFINDINGS: The spine is imaged from the skull base to the level of T2/T3.Mixing Operator: Noncontributory.Bones:There is generalized decreased bone mineral density.There [...] calcifications are present.6. Agree with outside report. [facility]2023-02-27 06:27:00 Test Item Value Reference Range Interpretation Comments Glucose Lvl (test code = Glucose Lvl) 85 70-99 [facility]2023-02-27 06:27:00 Test Item Value Reference Range Interpretation Comments BUN (test code = BUN) 28 7-22 [facility]2023-02-27 06:27:00 Test Item Value Reference Range Interpretation Comments Creatinine Lvl (test code = Creatinine 2.19 0.50-1.40 Lvl) [facility]2023-02-27 06:27:00 Test Item Value Reference Range Interpretation Comments Sodium Lvl (test code = Sodium Lvl) 143 135-145 [facility]2023-02-27 06:27:00 Test Item Value Reference Range Interpretation Comments Potassium Lvl (test code = Potassium 4.3 3.5-5.1 Lvl) [place] 218493-02-27 06:27:00 Test Item Value Reference Range Interpretation Comments Chloride Lvl (test code = Chloride Lvl) 110 95-109 [facility]2023-02-27 06:27:00 Test Item Value Reference Range Interpretation Comments CO2 (test code = CO2) 27 24-32 [place] 218493-02-27 06:27:00 Test Item Value Reference Range Interpretation Comments Calcium Lvl (test code = Calcium Lvl) 8.1 8.5-10.5 [place] 218493-02-27 06:27:00 Test Item Value Reference Range Interpretation Comments AGAP (test code = AGAP) 10.3 10.0-20.0 [facility]2023-02-27 06:27:00 Test Item Value Reference Range Interpretation Comments eGFR (test code = eGFR) 22 [place] 218493-02-27 06:27:00 Test Item Value Reference Range Interpretation Comments Total Protein (test code = Total 6.6 6.4-8.4 Protein) [facility]2023-02-27 06:27:00 Test Item Value Reference Range Interpretation Comments Albumin Lvl (test code = Albumin Lvl) 3.0 3.5-5.0 [place] 218493-02-27 06:27:00 Test Item Value Reference Range Interpretation Comments Globulin (test code = Globulin) 3.6 2.7-4.2 [place] 218493-02-27 06:27:00 Test Item Value Reference Range Interpretation Comments A/G Ratio (test code = A/G Ratio) 0.8 1 0.7-1.6 [place] 218493-02-27 06:27:00 Test Item Value Reference Range Interpretation Comments ALANINE AMINOTRANSFERASE 21 See_Comment [A utomated message] (test code = ALANINE The sys tem which AMINOTRANSFERASE) generated this result transmitted ref erence range: <=65. Th e reference range was not used to int erpret this result as normal/abnormal . [place] 218493-02-27 06:27:00 Test Item Value Reference Range Interpretation Comments AST (test code = AST) 17 See_Comment [Auto mated message] The system which ge nerated this result transmit sheba reference range : <=37. The reference range was not used to interpr et this result as edy l/abnormal. [facility]TV[facility] [id number] 06:27:00 Test Item Value Reference Range Interpretation Comments Alk Phos (test code = Alk Phos) 84 39-136 [facility] [id number] 06:27:00 Test Item Value Reference Range Interpretation Comments Bili Total (test code = Bili Total) 0.3 0.2-1.3 [place] [address]-02-27 06:27:00 Test Item Value Reference Range Interpretation Comments Bili Direct (test code no gt See_Comment [Aut omated message] The = Bili Direct) system which generated this result tra nsmitted reference range : <=0.3. The reference r christiano was not used to int erpret this result as edy l/abnormal. [facility]TV[facility] [id number]:27:00 Test Item Value Reference Range Interpretation Comments Bili Indirect Unable to See_Comment [Automated (test code = Bili Calculate message] T he system Indirect) which generated this result transmitted reference range : <=1.0. The reference range was not used to interpret this result as normal/abnormal . [facility]On[facility] [id number] 06:27:00 Test Item Value Reference Range Interpretation Comments Lactic Acid Lvl (test code = Lactic 0.5 0.5-2.2 Acid Lvl) [place] [address]-02-27 06:27:00 Test Item Value Reference Range Interpretation Comments Total Protein (test code = Total 6.6 6.4-8.4 Protein) [place] [address]-02-27 06:27:00 Test Item Value Reference Range Interpretation Comments Albumin Lvl (test code = Albumin Lvl) 3.0 3.5-5.0 [place] [address]-02-27 06:27:00 Test Item Value Reference Range Interpretation Comments Globulin (test code = Globulin) 3.6 2.7-4.2 [place] [address]-02-27 06:27:00 Test Item Value Reference Range Interpretation Comments A/G Ratio (test code = A/G Ratio) 0.8 1 0.7-1.6 [facility] HospitalPnnfxnsLNROLJQUX6964-19-38 06:27:00 Test Item Value Reference Range Interpretation Comments ALANINE AMINOTRANSFERASE 21 See_Comment [A utomated message] (test code = ALANINE The sys tem which AMINOTRANSFERASE) generated this result transmitted ref erence range: <=65. Th e reference range was not used to int erpret this result as normal/abnormal . [facility] HospitalZwahanbEUFBGQSMU4497-78-01 06:27:00 Test Item Value Reference Range Interpretation Comments AST (test code = AST) 17 See_Comment [Auto mated message] The system which ge nerated this result transmit sheba reference range : <=37. The reference range was not used to interpr et this result as edy l/abnormal. [facility] HospitalPuvtlaxYQSVWVMNC2260-38-08 06:27:00 Test Item Value Reference Range Interpretation Comments Alk Phos (test code = Alk Phos) 84 39-136 [facility] HospitalSjkdtmzJJIJSEEOB3578-45-78 06:27:00 Test Item Value Reference Range Interpretation Comments Bili Total (test code = Bili Total) 0.3 0.2-1.3 [facility] HospitalSptpafhKUSSOSTQQ0093-76-48 06:27:00 Test Item Value Reference Range Interpretation Comments Bili Direct (test code no gt See_Comment [Aut omated message] The = Bili Direct) system which generated this result tra nsmitted reference range : <=0.3. The reference r christiano was not used to int erpret this result as edy l/abnormal. [facility] HospitalIjrvxmiAADAPPXBL5579-14-58 06:27:00 Test Item Value Reference Range Interpretation Comments Bili Indirect Unable to See_Comment [Automated (test code = Bili Calculate message] T he system Indirect) which generated this result transmitted reference range : <=1.0. The reference range was not used to interpret this result as normal/abnormal . [facility] HospitalMdqibmvKDYEDXWUZ2980-14-53 06:27:00 Test Item Value Reference Range Interpretation Comments pH Justin (test code = pH Justin) 7.29 1 7.28-7.42 [facility] HospitalSunttfzAPIEXAZAF9822-59-47 06:27:00 Test Item Value Reference Range Interpretation Comments pCO2 Justin (test code = pCO2 Justin) 65 38-52 [facility] HospitalFnbwnbtGEOYFHUHJ9078-63-95 06:27:00 Test Item Value Reference Range Interpretation Comments pO2 Justin (test code = pO2 Justin) 37 20-49 [facility]DqpbrtbADAPUTZVX2817-91-91 06:27:00 Test Item Value Reference Range Interpretation Comments HCO3 Justin (test code = HCO3 Justin) 31 22-26 [place] 711743-02-27 06:27:00 Test Item Value Reference Range Interpretation Comments BE Justin (test code = BE Justin) 3 -2-2 [facility] CenterEkkcibeJPACVSQTS0599-69-82 06:27:00 Test Item Value Reference Range Interpretation Comments O2 Sat Justin (calc) (test code = O2 Sat 63.0 40.0-70.0 Justin (calc)) [facility] CenterChvgbhzIAFSONQWV9596-40-30 06:27:00 Test Item Value Reference Range Interpretation Comments Temp Justin (test code = Temp Justin) 37.0 [place] 711743-02-27 06:27:00 Test Item Value Reference Range Interpretation Comments Lactic Acid Lvl (test code = Lactic 0.5 0.5-2.2 Acid Lvl) [facility] CenterZjmzffaQHAKMSXGI9892-93-54 06:27:00 Test Item Value Reference Range Interpretation Comments TSH (test code = TSH) 0.403 0.360-3.740 [facility]AyhnrjhZDZESLYDCK4701-37-05 06:27:00 Test Item Value Reference Range Interpretation Comments WBC X 10x3 (test code = WBC X 10x3) 5.9 3.7-10.4 [facility] HospitalNwejndnBNBEXNZMEB0514-14-57 06:27:00 Test Item Value Reference Range Interpretation Comments RBC X 10x6 (test code = RBC X 10x6) 3.67 4.20-5.40 [place] 638193-02-27 06:27:00 Test Item Value Reference Range Interpretation Comments Hgb (test code = Hgb) 10.7 12.0-16.0 [place] 638193-02-27 06:27:00 Test Item Value Reference Range Interpretation Comments Hct (test code = Hct) 33.5 36.0-48.0 [place] 638193-02-27 06:27:00 Test Item Value Reference Range Interpretation Comments MCV (test code = MCV) 91.4 80.0-98.0 [place] 638193-02-27 06:27:00 Test Item Value Reference Range Interpretation Comments MCH (test code = MCH) 29.3 pg 27.0-31.0 [facility] HospitalEebucdaITEYKNGNVY1388-96-32 06:27:00 Test Item Value Reference Range Interpretation Comments MCHC (test code = MCHC) 32.0 32.0-36.0 [facility] HospitalBzaeeltMWPREQSOGU7121-83-00 06:27:00 Test Item Value Reference Range Interpretation Comments RDW (test code = RDW) 13.7 11.5-14.5 [place] 638193-02-27 06:27:00 Test Item Value Reference Range Interpretation Comments Platelet (test code = Platelet) 139 133-450 [place] 638193-02-27 06:27:00 Test Item Value Reference Range Interpretation Comments MPV (test code = MPV) 7.5 7.4-10.4 [place] 638193-02-27 06:27:00 Test Item Value Reference Range Interpretation Comments ACT (TEG) Rapid (test code = ACT (TEG) 121 s 86-118 Rapid) [facility] HospitalNlnxnseAYYSWNWJRO2886-71-67 06:27:00 Test Item Value Reference Range Interpretation Comments Split Point Rapid (test code = Split 0.6 min Point Rapid) [facility] HospitalIpkxvhtZASZIDGVNC6468-92-76 06:27:00 Test Item Value Reference Range Interpretation Comments R-time Rapid (test code = R-time 0.8 min 0.4-0.7 Rapid) [facility] HospitalPpxdowhYQPSUZGGLL6889-82-47 06:27:00 Test Item Value Reference Range Interpretation Comments K-time Rapid (test code = K-time 0.8 min 0.6-2.3 Rapid) [place] 638193-02-27 06:27:00 Test Item Value Reference Range Interpretation Comments Angle Rapid (test code = Angle 79 degrees 64-80 Rapid) [place] 638193-02-27 06:27:00 Test Item Value Reference Range Interpretation Comments Max Amplitude Rapid (test code = Max 71 mm 52-71 Amplitude Rapid) [place] 638193-02-27 06:27:00 Test Item Value Reference Range Interpretation Comments G-value Rapid (test code = G-value 12.1 5.0-11.6 Rapid) [facility] HospitalBoopdioWTBZTFDTRB6269-66-60 06:27:00 Test Item Value Reference Range Interpretation Comments Estimated % Lysis Rapid 0.0 See_Comment [Au tomated message] The (test code = Estimated syste m which generated % Lysis Rapid) this result t ransmitted reference range : <=7.5. The reference r christiano was not used to int erpret this result as normal/abnormal . [facility] HospitalSabbmfdROVBBRSUCW6576-81-01 06:27:00 Test Item Value Reference Range Interpretation Comments RBC Morph (test code = Normal (11/27/22 12:27 RBC Morph) AM) [facility] HospitalPbsbhngYZGSCZDDJB4007-60-20 06:27:00 Test Item Value Reference Range Interpretation Comments Plt Morph (test code = Normal (11/27/22 12:27 Plt Morph) AM) [facility] HospitalHintcmlYKAXNGBXAX4301-02-41 06:27:00 Test Item Value Reference Range Interpretation Comments Segs (test code = Segs) 60.1 45.0-75.0 [facility] HospitalXupuxvkTKFCBNBBRY4479-33-50 06:27:00 Test Item Value Reference Range Interpretation Comments Lymphocytes (test code = Lymphocytes) 23.9 20.0-40.0 [facility] HospitalPpastjaYETIZGGJDH5336-96-76 06:27:00 Test Item Value Reference Range Interpretation Comments Monocytes (test code = Monocytes) 9.6 2.0-12.0 [facility] HospitalVwtjhubFMLAHYVJHW2519-64-49 06:27:00 Test Item Value Reference Range Interpretation Comments Eosinophils (test code = 5.2 See_Comment [A utomated message] The Eosinophils) system which ge nerated this result tra nsmitted reference range : <=4.0. The reference r christiano was not used to int erpret this result as normal/abnormal . [facility] HospitalWfvqghtSUTHTLYXRG0603-99-37:27:00 Test Item Value Reference Range Interpretation Comments Basophils (test code = 1.2 See_Comment [Aut omated message] The Basophils) system which ge nerated this result tra nsmitted reference range : <=1.0. The reference r christiano was not used to int erpret this result as normal/abnormal . [facility] HospitalGusxnfuGMZZFSFMVL2176-01-24 06:27:00 Test Item Value Reference Range Interpretation Comments Neutrophils # (test code = Neutrophils 3.5 1.5-8.1 #) [facility] HospitalDelszddDANHGCGRBA8915-37-68 06:27:00 Test Item Value Reference Range Interpretation Comments Lymphocytes # (test code = Lymphocytes 1.4 1.0-5.5 #) [facility] [facility]954[facility] 06:27:00 Test Item Value Reference Range Interpretation Comments Monocytes # (test code 0.6 See_Comment [Aut omated message] The = Monocytes #) system which generated this result tra nsmitted reference range : <=0.8. The reference r christiano was not used to int erpret this result as normal/abnormal . [facility]oyaxgiARIWCTNJUD5566-60-06 06:27:00 Test Item Value Reference Range Interpretation Comments Eosinophils # (test code 0.3 See_Comment [A utomated message] The = Eosinophils #) system whic h generated this result tra nsmitted reference range : <=0.5. The reference r christiano was not used to int erpret this result as normal/abnormal . [facility] HospitalXtqolktUQZPBAIACE9132-47-99 06:27:00 Test Item Value Reference Range Interpretation Comments Basophils # (test code 0.1 See_Comment [Aut omated message] The = Basophils #) system which generated this result tra nsmitted reference range : <=0.2. The reference r christiano was not used to int erpret this result as normal/abnormal . [facility] HospitalSomtzrtXVWZNZHZVY6567-57-06 06:27:00 Test Item Value Reference Range Interpretation Comments ACT (TEG) Rapid (test code = ACT (TEG) 121 s 86-118 Rapid) [place] [address]-02-27 06:27:00 Test Item Value Reference Range Interpretation Comments Split Point Rapid (test code = Split 0.6 min Point Rapid) [place] [address]-02-27 06:27:00 Test Item Value Reference Range Interpretation Comments R-time Rapid (test code = R-time 0.8 min 0.4-0.7 Rapid) [place] [address]-02-27 06:27:00 Test Item Value Reference Range Interpretation Comments K-time Rapid (test code = K-time 0.8 min 0.6-2.3 Rapid) [place] [address]-02-27 06:27:00 Test Item Value Reference Range Interpretation Comments Angle Rapid (test code = Angle 79 degrees 64-80 Rapid) [place] [address]-02-27 06:27:00 Test Item Value Reference Range Interpretation Comments Max Amplitude Rapid (test code = Max 71 mm 52-71 Amplitude Rapid) [place] [address]-02-27 06:27:00 Test Item Value Reference Range Interpretation Comments G-value Rapid (test code = G-value 12.1 5.0-11.6 Rapid) [place] [address]-02-27 06:27:00 Test Item Value Reference Range Interpretation Comments Estimated % Lysis Rapid 0.0 See_Comment [Au tomated message] The (test code = Estimated syste m which generated % Lysis Rapid) this result t ransmitted reference range : <=7.5. The reference r christiano was not used to int erpret this result as normal/abnormal . [place] 638193-02-27 06:27:00 Test Item Value Reference Range Interpretation Comments RBC Morph (test code = Normal (11/27/22 12:27 RBC Morph) AM) [place] [address]-02-27 06:27:00 Test Item Value Reference Range Interpretation Comments Plt Morph (test code = Normal (11/27/22 12:27 Plt Morph) AM) [place] [address]-02-27 06:27:00 Test Item Value Reference Range Interpretation Comments Basophils # (test code 0.1 See_Comment [Aut omated message] The = Basophils #) system which generated this result tra nsmitted reference range : <=0.2. The reference r christiano was not used to int erpret this result as normal/abnormal . [facility] [id number] 06:27:00 Test Item Value Reference Range Interpretation Comments Glucose Lvl (test code = Glucose Lvl) 85 70-99 [place] 218493-02-27 06:27:00 Test Item Value Reference Range Interpretation Comments BUN (test code = BUN) 28 7-22 [place] 218493-02-27 06:27:00 Test Item Value Reference Range Interpretation Comments Creatinine Lvl (test code = Creatinine 2.19 0.50-1.40 Lvl) [place] 218493-02-27 06:27:00 Test Item Value Reference Range Interpretation Comments Sodium Lvl (test code = Sodium Lvl) 143 135-145 [facility] [id number] 06:27:00 Test Item Value Reference Range Interpretation Comments Potassium Lvl (test code = Potassium 4.3 3.5-5.1 Lvl) [place] 218493-02-27 06:27:00 Test Item Value Reference Range Interpretation Comments Chloride Lvl (test code = Chloride Lvl) 110 95-109 [place] 218493-02-27 06:27:00 Test Item Value Reference Range Interpretation Comments CO2 (test code = CO2) -32 [place] 218493-02-27 06:27:00 Test Item Value Reference Range Interpretation Comments Calcium Lvl (test code = Calcium Lvl) 8.1 8.5-10.5 [place] 218493-02-27 06:27:00 Test Item Value Reference Range Interpretation Comments AGAP (test code = AGAP) 10.3 10.0-20.0 [place] 218493-02-27 06:27:00 Test Item Value Reference Range Interpretation Comments eGFR (test code = eGFR) 22 [place] 218493-02-27 06:27:00 Test Item Value Reference Range Interpretation Comments Total Protein (test code = Total 6.6 6.4-8.4 Protein) [facility]2023-02-27 06:27:00 Test Item Value Reference Range Interpretation Comments Albumin Lvl (test code = Albumin Lvl) 3.0 3.5-5.0 [facility]2023-02-27 06:27:00 Test Item Value Reference Range Interpretation Comments Globulin (test code = Globulin) 3.6 2.7-4.2 [place] 218493-02-27 06:27:00 Test Item Value Reference Range Interpretation Comments A/G Ratio (test code = A/G Ratio) 0.8 1 0.7-1.6 [place] 218493-02-27 06:27:00 Test Item Value Reference Range Interpretation Comments ALANINE AMINOTRANSFERASE 21 See_Comment [A utomated message] (test code = ALANINE The sys tem which AMINOTRANSFERASE) generated this result transmitted ref erence range: <=65. Th e reference range was not used to int erpret this result as normal/abnormal . [facility]2023-02-27 06:27:00 Test Item Value Reference Range Interpretation Comments AST (test code = AST) 17 See_Comment [Auto mated message] The system which ge nerated this result transmit sheba reference range : <=37. The reference range was not used to interpr et this result as edy l/abnormal. [facility] [id number] 06:27:00 Test Item Value Reference Range Interpretation Comments Alk Phos (test code = Alk Phos) 84 39-136 [facility] [id number] 06:27:00 Test Item Value Reference Range Interpretation Comments Bili Total (test code = Bili Total) 0.3 0.2-1.3 [facility] [id number] 06:27:00 Test Item Value Reference Range Interpretation Comments Bili Direct (test code no gt See_Comment [Aut omated message] The = Bili Direct) system which generated this result tra nsmitted reference range : <=0.3. The reference r christiano was not used to int erpret this result as edy l/abnormal. [facility] [id number] 06:27:00 Test Item Value Reference Range Interpretation Comments Bili Indirect Unable to See_Comment [Automated (test code = Bili Calculate message] T he system Indirect) which generated this result transmitted reference range : <=1.0. The reference range was not used to interpret this result as normal/abnormal . [facility] [id number] 06:27:00 Test Item Value Reference Range Interpretation Comments Lactic Acid Lvl (test code = Lactic 0.5 0.5-2.2 Acid Lvl) [place] 711743-02-27 06:27:00 Test Item Value Reference Range Interpretation Comments Total Protein (test code = Total 6.6 6.4-8.4 Protein) [place] [address]-02-27 06:27:00 Test Item Value Reference Range Interpretation Comments Albumin Lvl (test code = Albumin Lvl) 3.0 3.5-5.0 [facility] HospitalIklvgooOROVFCKXG5025-88-42 06:27:00 Test Item Value Reference Range Interpretation Comments Globulin (test code = Globulin) 3.6 2.7-4.2 [place] [address]-02-27 06:27:00 Test Item Value Reference Range Interpretation Comments A/G Ratio (test code = A/G Ratio) 0.8 1 0.7-1.6 [facility] HospitalVhudvefQUBRZARNQ8703-09-33 06:27:00 Test Item Value Reference Range Interpretation Comments ALANINE AMINOTRANSFERASE 21 See_Comment [A utomated message] (test code = ALANINE The sys tem which AMINOTRANSFERASE) generated this result transmitted ref erence range: <=65. Th e reference range was not used to int erpret this result as normal/abnormal . [facility] HospitalKrqwgibBYDOXGOTT2849-01-34 06:27:00 Test Item Value Reference Range Interpretation Comments AST (test code = AST) 17 See_Comment [Auto mated message] The system which ge nerated this result transmit sheba reference range : <=37. The reference range was not used to interpr et this result as edy l/abnormal. [facility] HospitalCojeoklITOQCWCZM3249-02-17 06:27:00 Test Item Value Reference Range Interpretation Comments Alk Phos (test code = Alk Phos) 84 39-136 [facility] HospitalDylgftlHSAPEYPAU4883-92-92 06:27:00 Test Item Value Reference Range Interpretation Comments Bili Total (test code = Bili Total) 0.3 0.2-1.3 [facility] HospitalKutlecdVWNIJSJGD7741-03-00 06:27:00 Test Item Value Reference Range Interpretation Comments Bili Direct (test code no gt See_Comment [Aut omated message] The = Bili Direct) system which generated this result tra nsmitted reference range : <=0.3. The reference r christiano was not used to int erpret this result as edy l/abnormal. [facility] HospitalSnbetzmTMQOOEPET2026-88-65 06:27:00 Test Item Value Reference Range Interpretation Comments Bili Indirect Unable to See_Comment [Automated (test code = Bili Calculate message] T he system Indirect) which generated this result transmitted reference range : <=1.0. The reference range was not used to interpret this result as normal/abnormal . [facility] HospitalCgxcmnkKILUKKITH4944-97-13 06:27:00 Test Item Value Reference Range Interpretation Comments pH Justin (test code = pH Justin) 7.29 1 7.28-7.42 [facility] HospitalHzfiygzYUKHOIRGV9283-96-70 06:27:00 Test Item Value Reference Range Interpretation Comments pCO2 Justin (test code = pCO2 Justin) 65 38-52 [facility] HospitalCqvgmdnNSMQCKKJZ5644-73-01 06:27:00 Test Item Value Reference Range Interpretation Comments pO2 Justin (test code = pO2 Justin) 37 20-49 [facility]pivmvtQWBZGTOWH3354-91-21 06:27:00 Test Item Value Reference Range Interpretation Comments HCO3 Justin (test code = HCO3 Justin) 31 22-26 [facility] CenterDksjlnfQRGWWFJRU8253-98-50 06:27:00 Test Item Value Reference Range Interpretation Comments BE Justin (test code = BE Justin) 3 -2-2 [facility] CenterYqdyjjjTCQDSYPFJ1792-56-96 06:27:00 Test Item Value Reference Range Interpretation Comments O2 Sat Justin (calc) (test code = O2 Sat 63.0 40.0-70.0 Justin (calc)) [facility] CenterArrxjviFFBQCEEFE4711-47-72 06:27:00 Test Item Value Reference Range Interpretation Comments Temp Justin (test code = Temp Justin) 37.0 [facility] CenterQtlqapuDEXFAGZNF8843-64-11 06:27:00 Test Item Value Reference Range Interpretation Comments Lactic Acid Lvl (test code = Lactic 0.5 0.5-2.2 Acid Lvl) [facility] CenterCkiqzjaBLQWWABPT9579-97-61 06:27:00 Test Item Value Reference Range Interpretation Comments TSH (test code = TSH) 0.403 0.360-3.740 [facility] HospitalWnnpcwbTUJBUNJXVE5631-40-77 06:27:00 Test Item Value Reference Range Interpretation Comments WBC X 10x3 (test code = WBC X 10x3) 5.9 3.7-10.4 [facility] HospitalDxlkavuTNQTKNTVOF6037-91-66 06:27:00 Test Item Value Reference Range Interpretation Comments RBC X 10x6 (test code = RBC X 10x6) 3.67 4.20-5.40 [facility] HospitalJlqbjrhBVKJOTHIPP9494-20-92 06:27:00 Test Item Value Reference Range Interpretation Comments Hgb (test code = Hgb) 10.7 12.0-16.0 [place] 638193-02-27 06:27:00 Test Item Value Reference Range Interpretation Comments Hct (test code = Hct) 33.5 36.0-48.0 [place] 638193-02-27 06:27:00 Test Item Value Reference Range Interpretation Comments MCV (test code = MCV) 91.4 80.0-98.0 [place] 638193-02-27 06:27:00 Test Item Value Reference Range Interpretation Comments MCH (test code = MCH) 29.3 pg 27.0-31.0 [place] 638193-02-27 06:27:00 Test Item Value Reference Range Interpretation Comments MCHC (test code = MCHC) 32.0 32.0-36.0 [place] 638193-02-27 06:27:00 Test Item Value Reference Range Interpretation Comments RDW (test code = RDW) 13.7 11.5-14.5 [place] 638193-02-27 06:27:00 Test Item Value Reference Range Interpretation Comments Platelet (test code = Platelet) 139 133-450 [place] 638193-02-27 06:27:00 Test Item Value Reference Range Interpretation Comments MPV (test code = MPV) 7.5 7.4-10.4 [place] 638193-02-27 06:27:00 Test Item Value Reference Range Interpretation Comments ACT (TEG) Rapid (test code = ACT (TEG) 121 s 86-118 Rapid) [place] 638193-02-27 06:27:00 Test Item Value Reference Range Interpretation Comments Split Point Rapid (test code = Split 0.6 min Point Rapid) [place] 638193-02-27 06:27:00 Test Item Value Reference Range Interpretation Comments R-time Rapid (test code = R-time 0.8 min 0.4-0.7 Rapid) [place] 638193-02-27 06:27:00 Test Item Value Reference Range Interpretation Comments K-time Rapid (test code = K-time 0.8 min 0.6-2.3 Rapid) [place] 638193-02-27 06:27:00 Test Item Value Reference Range Interpretation Comments Angle Rapid (test code = Angle 79 degrees 64-80 Rapid) [place] 638193-02-27 06:27:00 Test Item Value Reference Range Interpretation Comments Max Amplitude Rapid (test code = Max 71 mm 52-71 Amplitude Rapid) [place] 638193-02-27 06:27:00 Test Item Value Reference Range Interpretation Comments G-value Rapid (test code = G-value 12.1 5.0-11.6 Rapid) [place] 638193-02-27 06:27:00 Test Item Value Reference Range Interpretation Comments Estimated % Lysis Rapid 0.0 See_Comment [Au tomated message] The (test code = Estimated syste m which generated % Lysis Rapid) this result t ransmitted reference range : <=7.5. The reference r christiano was not used to int erpret this result as normal/abnormal . [facility] HospitalHfjbrsrKLSPANOGRZ5003-03-98 06:27:00 Test Item Value Reference Range Interpretation Comments RBC Morph (test code = Normal (11/27/22 12:27 RBC Morph) AM) [facility] HospitalEttcrmpBGALCSGJWM4657-09-94 06:27:00 Test Item Value Reference Range Interpretation Comments Plt Morph (test code = Normal (11/27/22 12:27 Plt Morph) AM) [facility] HospitalBeryikwNJGDOQVJJS7373-78-08 06:27:00 Test Item Value Reference Range Interpretation Comments Segs (test code = Segs) 60.1 45.0-75.0 [facility] HospitalUrawcawJQLJOAOPZZ2648-32-66 06:27:00 Test Item Value Reference Range Interpretation Comments Lymphocytes (test code = Lymphocytes) 23.9 20.0-40.0 [facility] HospitalQrvmbctJNJQEYMMQG7626-59-62 06:27:00 Test Item Value Reference Range Interpretation Comments Monocytes (test code = Monocytes) 9.6 2.0-12.0 [facility] HospitalRskzfxaXDVWFTQBSL3629-60-09 06:27:00 Test Item Value Reference Range Interpretation Comments Eosinophils (test code = 5.2 See_Comment [A utomated message] The Eosinophils) system which ge nerated this result tra nsmitted reference range : <=4.0. The reference r christiano was not used to int erpret this result as normal/abnormal . [facility] HospitalOnmscefLEVRTGTYME6753-83-13 06:27:00 Test Item Value Reference Range Interpretation Comments Basophils (test code = 1.2 See_Comment [Aut omated message] The Basophils) system which ge nerated this result tra nsmitted reference range : <=1.0. The reference r christiano was not used to int erpret this result as normal/abnormal . [facility] HospitalPimfqggCESZIMZQBR5502-23-28:27:00 Test Item Value Reference Range Interpretation Comments Neutrophils # (test code = Neutrophils 3.5 1.5-8.1 #) [facility] HospitalKznnwytZIIYBODUMW5919-10-08:27:00 Test Item Value Reference Range Interpretation Comments Lymphocytes # (test code = Lymphocytes 1.4 1.0-5.5 #) [facility] HospitalSryireaDKDIGCKYTS0284-35-04 06:27:00 Test Item Value Reference Range Interpretation Comments Monocytes # (test code 0.6 See_Comment [Aut omated message] The = Monocytes #) system which generated this result tra nsmitted reference range : <=0.8. The reference r christiano was not used to int erpret this result as normal/abnormal . [facility] HospitalLhrhhzkWRCOOCYWPN6039-83-01 06:27:00 Test Item Value Reference Range Interpretation Comments Eosinophils # (test code 0.3 See_Comment [A utomated message] The = Eosinophils #) system whic h generated this result tra nsmitted reference range : <=0.5. The reference r christiano was not used to int erpret this result as normal/abnormal . [facility] HospitalFijmcmvTUCZFKDZCH1070-74-60 06:27:00 Test Item Value Reference Range Interpretation Comments Basophils # (test code 0.1 See_Comment [Aut omated message] The = Basophils #) system which generated this result tra nsmitted reference range : <=0.2. The reference r christiano was not used to int erpret this result as normal/abnormal . [facility] HospitalUwjgpaxXXAYTDYSTQ2528-30-24 06:27:00 Test Item Value Reference Range Interpretation Comments ACT (TEG) Rapid (test code = ACT (TEG) 121 s 86-118 Rapid) [place] 638193-02-27 06:27:00 Test Item Value Reference Range Interpretation Comments Split Point Rapid (test code = Split 0.6 min Point Rapid) [place] [address]-02-27 06:27:00 Test Item Value Reference Range Interpretation Comments R-time Rapid (test code = R-time 0.8 min 0.4-0.7 Rapid) [place] 638193-02-27 06:27:00 Test Item Value Reference Range Interpretation Comments K-time Rapid (test code = K-time 0.8 min 0.6-2.3 Rapid) [place] [address]-02-27 06:27:00 Test Item Value Reference Range Interpretation Comments Angle Rapid (test code = Angle 79 degrees 64-80 Rapid) [place] 638193-02-27 06:27:00 Test Item Value Reference Range Interpretation Comments Max Amplitude Rapid (test code = Max 71 mm 52-71 Amplitude Rapid) [place] [address]-02-27 06:27:00 Test Item Value Reference Range Interpretation Comments G-value Rapid (test code = G-value 12.1 5.0-11.6 Rapid) [place] [address]-02-27 06:27:00 Test Item Value Reference Range Interpretation Comments Estimated % Lysis Rapid 0.0 See_Comment [Au tomated message] The (test code = Estimated syste m which generated % Lysis Rapid) this result t ransmitted reference range : <=7.5. The reference r christiano was not used to int erpret this result as normal/abnormal . [place] 638193-02-27 06:27:00 Test Item Value Reference Range Interpretation Comments RBC Morph (test code = Normal (11/27/22 12:27 RBC Morph) AM) [place] [address]-02-27 06:27:00 Test Item Value Reference Range Interpretation Comments Plt Morph (test code = Normal (11/27/22 12:27 Plt Morph) AM) [place] [address]-02-27 06:27:00 Test Item Value Reference Range Interpretation Comments Basophils # (test code 0.1 See_Comment [Aut omated message] The = Basophils #) system which generated this result tra nsmitted reference range : <=0.2. The reference r christiano was not used to int erpret this result as normal/abnormal . [place] 218493-02-27 06:27:00 Test Item Value Reference Range Interpretation Comments Glucose Lvl (test code = Glucose Lvl) 85 70-99 [facility] [id number] 06:27:00 Test Item Value Reference Range Interpretation Comments BUN (test code = BUN) 28 7-22 [place] 218493-02-27 06:27:00 Test Item Value Reference Range Interpretation Comments Creatinine Lvl (test code = Creatinine 2.19 0.50-1.40 Lvl) [place] 218493-02-27 06:27:00 Test Item Value Reference Range Interpretation Comments Sodium Lvl (test code = Sodium Lvl) 143 135-145 [facility] [id number] 06:27:00 Test Item Value Reference Range Interpretation Comments Potassium Lvl (test code = Potassium 4.3 3.5-5.1 Lvl) [place] 218493-02-27 06:27:00 Test Item Value Reference Range Interpretation Comments Chloride Lvl (test code = Chloride Lvl) 110 95-109 [place] 218493-02-27 06:27:00 Test Item Value Reference Range Interpretation Comments CO2 (test code = CO2) 27 24-32 [place] 218493-02-27 06:27:00 Test Item Value Reference Range Interpretation Comments Calcium Lvl (test code = Calcium Lvl) 8.1 8.5-10.5 [place] 218493-02-27 06:27:00 Test Item Value Reference Range Interpretation Comments AGAP (test code = AGAP) 10.3 10.0-20.0 [place] 218493-02-27 06:27:00 Test Item Value Reference Range Interpretation Comments eGFR (test code = eGFR) 22 [place] 218493-02-27 06:27:00 Test Item Value Reference Range Interpretation Comments Total Protein (test code = Total 6.6 6.4-8.4 Protein) [place] 218493-02-27 06:27:00 Test Item Value Reference Range Interpretation Comments Albumin Lvl (test code = Albumin Lvl) 3.0 3.5-5.0 [facility]2023-02-27 06:27:00 Test Item Value Reference Range Interpretation Comments Globulin (test code = Globulin) 3.6 2.7-4.2 [place] 218493-02-27 06:27:00 Test Item Value Reference Range Interpretation Comments A/G Ratio (test code = A/G Ratio) 0.8 1 0.7-1.6 [place] 218493-02-27 06:27:00 Test Item Value Reference Range Interpretation Comments ALANINE AMINOTRANSFERASE 21 See_Comment [A utomated message] (test code = ALANINE The sys tem which AMINOTRANSFERASE) generated this result transmitted ref erence range: <=65. Th e reference range was not used to int erpret this result as normal/abnormal . [place] 218493-02-27 06:27:00 Test Item Value Reference Range Interpretation Comments AST (test code = AST) 17 See_Comment [Auto mated message] The system which ge nerated this result transmit sheba reference range : <=37. The reference range was not used to interpr et this result as edy l/abnormal. [facility] [id number] 06:27:00 Test Item Value Reference Range Interpretation Comments Alk Phos (test code = Alk Phos) 84 39-136 [facility] [id number] 06:27:00 Test Item Value Reference Range Interpretation Comments Bili Total (test code = Bili Total) 0.3 0.2-1.3 [facility] [id number] 06:27:00 Test Item Value Reference Range Interpretation Comments Bili Direct (test code no gt See_Comment [Aut omated message] The = Bili Direct) system which generated this result tra nsmitted reference range : <=0.3. The reference r christiano was not used to int erpret this result as edy l/abnormal. [facility] [id number] 06:27:00 Test Item Value Reference Range Interpretation Comments Bili Indirect Unable to See_Comment [Automated (test code = Bili Calculate message] T he system Indirect) which generated this result transmitted reference range : <=1.0. The reference range was not used to interpret this result as normal/abnormal . [facility] [id number] 06:27:00 Test Item Value Reference Range Interpretation Comments Lactic Acid Lvl (test code = Lactic 0.5 0.5-2.2 Acid Lvl) [place] [address]-02-27 06:27:00 Test Item Value Reference Range Interpretation Comments Total Protein (test code = Total 6.6 6.4-8.4 Protein) [facility] HospitalTjfmnpuDHQXVDURZ5733-93-92 06:27:00 Test Item Value Reference Range Interpretation Comments Albumin Lvl (test code = Albumin Lvl) 3.0 3.5-5.0 [facility] HospitalFhicmajBUDUHOXOF7596-00-58 06:27:00 Test Item Value Reference Range Interpretation Comments Globulin (test code = Globulin) 3.6 2.7-4.2 [facility] HospitalMuuucttIHFBTKRQW7877-25-27 06:27:00 Test Item Value Reference Range Interpretation Comments A/G Ratio (test code = A/G Ratio) 0.8 1 0.7-1.6 [facility] HospitalCfpdfilEVPHSVEAI1927-46-64 06:27:00 Test Item Value Reference Range Interpretation Comments ALANINE AMINOTRANSFERASE 21 See_Comment [A utomated message] (test code = ALANINE The sys tem which AMINOTRANSFERASE) generated this result transmitted ref erence range: <=65. Th e reference range was not used to int erpret this result as normal/abnormal . [facility] HospitalYmszomiUOGRQZNQC3198-10-33 06:27:00 Test Item Value Reference Range Interpretation Comments AST (test code = AST) 17 See_Comment [Auto mated message] The system which ge nerated this result transmit sheba reference range : <=37. The reference range was not used to interpr et this result as edy l/abnormal. [facility]vlq[facility]qtZPQKFOJZP7893-73-96 06:27:00 Test Item Value Reference Range Interpretation Comments Alk Phos (test code = Alk Phos) 84 39-136 [facility]XzdewepKKCEUDRIF6435-06-85 06:27:00 Test Item Value Reference Range Interpretation Comments Bili Total (test code = Bili Total) 0.3 0.2-1.3 [facility]PrggxrjRHZTZNKXV7788-10-36 06:27:00 Test Item Value Reference Range Interpretation Comments Bili Direct (test code no gt See_Comment [Aut omated message] The = Bili Direct) system which generated this result tra nsmitted reference range : <=0.3. The reference r christiano was not used to int erpret this result as edy l/abnormal. [facility]KomeogpNHUKKFTFH4598-90-28 06:27:00 Test Item Value Reference Range Interpretation Comments Bili Indirect Unable to See_Comment [Automated (test code = Bili Calculate message] T he system Indirect) which generated this result transmitted reference range : <=1.0. The reference range was not used to interpret this result as normal/abnormal . [facility] HospitalWixclsfFMGMKYLPC2175-94-34 06:27:00 Test Item Value Reference Range Interpretation Comments pH Justin (test code = pH Justin) 7.29 1 7.28-7.42 [facility] HospitalTktsfxfLWOPIAEXE5902-29-84 06:27:00 Test Item Value Reference Range Interpretation Comments pCO2 Justin (test code = pCO2 Justin) 65 38-52 [facility] HospitalAqrmbwdEEWUEVLHY0115-16-78 06:27:00 Test Item Value Reference Range Interpretation Comments pO2 Justin (test code = pO2 Justin) 37 20-49 [facility]JgjpbioDZQKHAESN8532-97-42 06:27:00 Test Item Value Reference Range Interpretation Comments HCO3 Justin (test code = HCO3 Justin) 31 22-26 [facility] CenterRobuojmNAZNWPZRM0845-81-56 06:27:00 Test Item Value Reference Range Interpretation Comments BE Justin (test code = BE Justin) 3 -2-2 [facility] CenterBblqrwwMABDDHCTW6911-92-85 06:27:00 Test Item Value Reference Range Interpretation Comments O2 Sat Justin (calc) (test code = O2 Sat 63.0 40.0-70.0 Justin (calc)) [facility] CenterAfegzheEMFPXLPAO4220-60-90 06:27:00 Test Item Value Reference Range Interpretation Comments Temp Justin (test code = Temp Justin) 37.0 [place] 711743-02-27 06:27:00 Test Item Value Reference Range Interpretation Comments Lactic Acid Lvl (test code = Lactic 0.5 0.5-2.2 Acid Lvl) [facility] CenterNyowuclATDLIKIAQ2051-90-10 06:27:00 Test Item Value Reference Range Interpretation Comments TSH (test code = TSH) 0.403 0.360-3.740 [facility]SuozcceMBINZGCLWQ8278-23-33 06:27:00 Test Item Value Reference Range Interpretation Comments WBC X 10x3 (test code = WBC X 10x3) 5.9 3.7-10.4 [facility] HospitalMyscexdXMKOJLSSSF2828-89-62 06:27:00 Test Item Value Reference Range Interpretation Comments RBC X 10x6 (test code = RBC X 10x6) 3.67 4.20-5.40 [facility] HospitalNnzdjugJNHSCAVBSV8853-89-89 06:27:00 Test Item Value Reference Range Interpretation Comments Hgb (test code = Hgb) 10.7 12.0-16.0 [place] 638193-02-27 06:27:00 Test Item Value Reference Range Interpretation Comments Hct (test code = Hct) 33.5 36.0-48.0 [facility] HospitalZasjupoUYSUPSNABN8741-22-41 06:27:00 Test Item Value Reference Range Interpretation Comments MCV (test code = MCV) 91.4 80.0-98.0 [facility] HospitalVdswrpcSQXACTCTXF6251-59-89 06:27:00 Test Item Value Reference Range Interpretation Comments MCH (test code = MCH) 29.3 pg 27.0-31.0 [place] 638193-02-27 06:27:00 Test Item Value Reference Range Interpretation Comments MCHC (test code = MCHC) 32.0 32.0-36.0 [facility] HospitalAcefpccTCXFBRWPPT0614-89-49 06:27:00 Test Item Value Reference Range Interpretation Comments RDW (test code = RDW) 13.7 11.5-14.5 [place] 638193-02-27 06:27:00 Test Item Value Reference Range Interpretation Comments Platelet (test code = Platelet) 139 133-450 [place] 638193-02-27 06:27:00 Test Item Value Reference Range Interpretation Comments MPV (test code = MPV) 7.5 7.4-10.4 [place] 638193-02-27 06:27:00 Test Item Value Reference Range Interpretation Comments ACT (TEG) Rapid (test code = ACT (TEG) 121 s 86-118 Rapid) [place] 638193-02-27 06:27:00 Test Item Value Reference Range Interpretation Comments Split Point Rapid (test code = Split 0.6 min Point Rapid) [facility] HospitalQvghmftDASGLLOBHB0809-75-61 06:27:00 Test Item Value Reference Range Interpretation Comments R-time Rapid (test code = R-time 0.8 min 0.4-0.7 Rapid) [place] 638193-02-27 06:27:00 Test Item Value Reference Range Interpretation Comments K-time Rapid (test code = K-time 0.8 min 0.6-2.3 Rapid) [place] 638193-02-27 06:27:00 Test Item Value Reference Range Interpretation Comments Angle Rapid (test code = Angle 79 degrees 64-80 Rapid) [facility] HospitalBzmyszgBWPRTJLURI9004-03-40 06:27:00 Test Item Value Reference Range Interpretation Comments Max Amplitude Rapid (test code = Max 71 mm 52-71 Amplitude Rapid) [place] 638193-02-27 06:27:00 Test Item Value Reference Range Interpretation Comments G-value Rapid (test code = G-value 12.1 5.0-11.6 Rapid) [place] 638193-02-27 06:27:00 Test Item Value Reference Range Interpretation Comments Estimated % Lysis Rapid 0.0 See_Comment [Au tomated message] The (test code = Estimated syste m which generated % Lysis Rapid) this result t ransmitted reference range : <=7.5. The reference r christiano was not used to int erpret this result as normal/abnormal . [facility] HospitalTngtracBQGNRCYHMJ7194-00-90 06:27:00 Test Item Value Reference Range Interpretation Comments RBC Morph (test code = Normal (11/27/22 12:27 RBC Morph) AM) [facility] HospitalYnlidmhDDVKGGUKCG7373-52-03 06:27:00 Test Item Value Reference Range Interpretation Comments Plt Morph (test code = Normal (11/27/22 12:27 Plt Morph) AM) [facility] HospitalWfqmeenZCVTSSTHTD1020-91-93 06:27:00 Test Item Value Reference Range Interpretation Comments Segs (test code = Segs) 60.1 45.0-75.0 [place] 638193-02-27 06:27:00 Test Item Value Reference Range Interpretation Comments Lymphocytes (test code = Lymphocytes) 23.9 20.0-40.0 [facility] HospitalQpwsgfkAMXYVGXTPR5687-67-38 06:27:00 Test Item Value Reference Range Interpretation Comments Monocytes (test code = Monocytes) 9.6 2.0-12.0 [facility] HospitalPycqxaeAGDQYKKDGF9173-39-72 06:27:00 Test Item Value Reference Range Interpretation Comments Eosinophils (test code = 5.2 See_Comment [A utomated message] The Eosinophils) system which ge nerated this result tra nsmitted reference range : <=4.0. The reference r christiano was not used to int erpret this result as normal/abnormal . [facility] HospitalFhkvoffYQMVXFFHJP8301-78-50:27:00 Test Item Value Reference Range Interpretation Comments Basophils (test code = 1.2 See_Comment [Aut omated message] The Basophils) system which ge nerated this result tra nsmitted reference range : <=1.0. The reference r christiano was not used to int erpret this result as normal/abnormal . [facility] HospitalBrwcofjHOWFTNDXWZ6675-65-04 06:27:00 Test Item Value Reference Range Interpretation Comments Neutrophils # (test code = Neutrophils 3.5 1.5-8.1 #) [facility] HospitalKtwuhbnIEPKIORSCE1191-59-09 06:27:00 Test Item Value Reference Range Interpretation Comments Lymphocytes # (test code = Lymphocytes 1.4 1.0-5.5 #) [place] 638193-02-27 06:27:00 Test Item Value Reference Range Interpretation Comments Monocytes # (test code 0.6 See_Comment [Aut omated message] The = Monocytes #) system which generated this result tra nsmitted reference range : <=0.8. The reference r christiano was not used to int erpret this result as normal/abnormal . [place] 638193-02-27 06:27:00 Test Item Value Reference Range Interpretation Comments Eosinophils # (test code 0.3 See_Comment [A utomated message] The = Eosinophils #) system whic h generated this result tra nsmitted reference range : <=0.5. The reference r christiano was not used to int erpret this result as normal/abnormal . [place] [address]-02-27 06:27:00 Test Item Value Reference Range Interpretation Comments Basophils # (test code 0.1 See_Comment [Aut omated message] The = Basophils #) system which generated this result tra nsmitted reference range : <=0.2. The reference r christiano was not used to int erpret this result as normal/abnormal . [place] [address]-02-27 06:27:00 Test Item Value Reference Range Interpretation Comments ACT (TEG) Rapid (test code = ACT (TEG) 121 s 86-118 Rapid) [place] [address]-02-27 06:27:00 Test Item Value Reference Range Interpretation Comments Split Point Rapid (test code = Split 0.6 min Point Rapid) [place] [address]-02-27 06:27:00 Test Item Value Reference Range Interpretation Comments R-time Rapid (test code = R-time 0.8 min 0.4-0.7 Rapid) [place] [address]-02-27 06:27:00 Test Item Value Reference Range Interpretation Comments K-time Rapid (test code = K-time 0.8 min 0.6-2.3 Rapid) [place] [address]-02-27 06:27:00 Test Item Value Reference Range Interpretation Comments Angle Rapid (test code = Angle 79 degrees 64-80 Rapid) [place] [address]-02-27 06:27:00 Test Item Value Reference Range Interpretation Comments Max Amplitude Rapid (test code = Max 71 mm 52-71 Amplitude Rapid) [place] 638193-02-27 06:27:00 Test Item Value Reference Range Interpretation Comments G-value Rapid (test code = G-value 12.1 5.0-11.6 Rapid) [place] [address]-02-27 06:27:00 Test Item Value Reference Range Interpretation Comments Estimated % Lysis Rapid 0.0 See_Comment [Au tomated message] The (test code = Estimated syste m which generated % Lysis Rapid) this result t ransmitted reference range : <=7.5. The reference r christiano was not used to int erpret this result as normal/abnormal . [place] [address]-02-27 06:27:00 Test Item Value Reference Range Interpretation Comments RBC Morph (test code = Normal (11/27/22 12:27 RBC Morph) AM) [place] [address]-02-27 06:27:00 Test Item Value Reference Range Interpretation Comments Plt Morph (test code = Normal (11/27/22 12:27 Plt Morph) AM) [place] [address]-02-27 06:27:00 Test Item Value Reference Range Interpretation Comments Basophils # (test code 0.1 See_Comment [Aut omated message] The = Basophils #) system which generated this result tra nsmitted reference range : <=0.2. The reference r christiano was not used to int erpret this result as normal/abnormal . [place] 218493-02-27 06:27:00 Test Item Value Reference Range Interpretation Comments Glucose Lvl (test code = Glucose Lvl) 85 70-99 [facility]On[facility] ENUIY6341-01-18 06:27:00 Test Item Value Reference Range Interpretation Comments BUN (test code = BUN) 28 7-22 [place] [address]-02-27 06:27:00 Test Item Value Reference Range Interpretation Comments Creatinine Lvl (test code = Creatinine 2.19 0.50-1.40 Lvl) [place] 218493-02-27 06:27:00 Test Item Value Reference Range Interpretation Comments Sodium Lvl (test code = Sodium Lvl) 143 135-145 [place] 218493-02-27 06:27:00 Test Item Value Reference Range Interpretation Comments Potassium Lvl (test code = Potassium 4.3 3.5-5.1 Lvl) [facility]2023-02-27 06:27:00 Test Item Value Reference Range Interpretation Comments Chloride Lvl (test code = Chloride Lvl) 110 95-109 [facility]2023-02-27 06:27:00 Test Item Value Reference Range Interpretation Comments CO2 (test code = CO2) 27 24-32 [place] 218493-02-27 06:27:00 Test Item Value Reference Range Interpretation Comments Calcium Lvl (test code = Calcium Lvl) 8.1 8.5-10.5 [place] 218493-02-27 06:27:00 Test Item Value Reference Range Interpretation Comments AGAP (test code = AGAP) 10.3 10.0-20.0 [place] 218493-02-27 06:27:00 Test Item Value Reference Range Interpretation Comments eGFR (test code = eGFR) 22 [place] 218493-02-27 06:27:00 Test Item Value Reference Range Interpretation Comments Total Protein (test code = Total 6.6 6.4-8.4 Protein) [place] 218493-02-27 06:27:00 Test Item Value Reference Range Interpretation Comments Albumin Lvl (test code = Albumin Lvl) 3.0 3.5-5.0 [place] 218493-02-27 06:27:00 Test Item Value Reference Range Interpretation Comments Globulin (test code = Globulin) 3.6 2.7-4.2 [place] 218493-02-27 06:27:00 Test Item Value Reference Range Interpretation Comments A/G Ratio (test code = A/G Ratio) 0.8 1 0.7-1.6 [place] 218493-02-27 06:27:00 Test Item Value Reference Range Interpretation Comments ALANINE AMINOTRANSFERASE 21 See_Comment [A utomated message] (test code = ALANINE The sys tem which AMINOTRANSFERASE) generated this result transmitted ref erence range: <=65. Th e reference range was not used to int erpret this result as normal/abnormal . [facility]2023-02-27 06:27:00 Test Item Value Reference Range Interpretation Comments AST (test code = AST) 17 See_Comment [Auto mated message] The system which ge nerated this result transmit sheba reference range : <=37. The reference range was not used to interpr et this result as edy l/abnormal. [place] 218493-02-27 06:27:00 Test Item Value Reference Range Interpretation Comments Alk Phos (test code = Alk Phos) 84 39-136 [place] 218493-02-27 06:27:00 Test Item Value Reference Range Interpretation Comments Bili Total (test code = Bili Total) 0.3 0.2-1.3 [place] [address]-02-27 06:27:00 Test Item Value Reference Range Interpretation Comments Bili Direct (test code no gt See_Comment [Aut omated message] The = Bili Direct) system which generated this result tra nsmitted reference range : <=0.3. The reference r christiano was not used to int erpret this result as edy l/abnormal. [place] 218493-02-27 06:27:00 Test Item Value Reference Range Interpretation Comments Bili Indirect Unable to See_Comment [Automated (test code = Bili Calculate message] T he system Indirect) which generated this result transmitted reference range : <=1.0. The reference range was not used to interpret this result as normal/abnormal . [place] 218493-02-27 06:27:00 Test Item Value Reference Range Interpretation Comments Lactic Acid Lvl (test code = Lactic 0.5 0.5-2.2 Acid Lvl) [place] [address]-02-27 06:27:00 Test Item Value Reference Range Interpretation Comments Total Protein (test code = Total 6.6 6.4-8.4 Protein) [place] 711743-02-27 06:27:00 Test Item Value Reference Range Interpretation Comments Albumin Lvl (test code = Albumin Lvl) 3.0 3.5-5.0 [place] [address]-02-27 06:27:00 Test Item Value Reference Range Interpretation Comments Globulin (test code = Globulin) 3.6 2.7-4.2 [place] [address]-02-27 06:27:00 Test Item Value Reference Range Interpretation Comments A/G Ratio (test code = A/G Ratio) 0.8 1 0.7-1.6 [place] [address]-02-27 06:27:00 Test Item Value Reference Range Interpretation Comments ALANINE AMINOTRANSFERASE 21 See_Comment [A utomated message] (test code = ALANINE The sys tem which AMINOTRANSFERASE) generated this result transmitted ref erence range: <=65. Th e reference range was not used to int erpret this result as normal/abnormal . [facility] HospitalCvuxgvmWBNYXCFWS4148-67-00 06:27:00 Test Item Value Reference Range Interpretation Comments AST (test code = AST) 17 See_Comment [Auto mated message] The system which ge nerated this result transmit sheba reference range : <=37. The reference range was not used to interpr et this result as edy l/abnormal. [facility] HospitalFeeeeicLPHBSRFZJ1616-99-02 06:27:00 Test Item Value Reference Range Interpretation Comments Alk Phos (test code = Alk Phos) 84 39-136 [facility] HospitalFrzwnhbWKWHAWNBD7278-85-49 06:27:00 Test Item Value Reference Range Interpretation Comments Bili Total (test code = Bili Total) 0.3 0.2-1.3 [facility] HospitalIbrvfmwBIHDEHHLG9231-92-50 06:27:00 Test Item Value Reference Range Interpretation Comments Bili Direct (test code no gt See_Comment [Aut omated message] The = Bili Direct) system which generated this result tra nsmitted reference range : <=0.3. The reference r christiano was not used to int erpret this result as edy l/abnormal. [facility] HospitalNlcbzdsLLSYGETWM2671-24-80 06:27:00 Test Item Value Reference Range Interpretation Comments Bili Indirect Unable to See_Comment [Automated (test code = Bili Calculate message] T he system Indirect) which generated this result transmitted reference range : <=1.0. The reference range was not used to interpret this result as normal/abnormal . [facility] HospitalSfxbgmtRJPYWWGUD9553-97-74 06:27:00 Test Item Value Reference Range Interpretation Comments pH Justin (test code = pH Justin) 7.29 1 7.28-7.42 [facility] HospitalShwdppdPDQMQIAUU7301-88-54 06:27:00 Test Item Value Reference Range Interpretation Comments pCO2 Justin (test code = pCO2 Justin) 65 38-52 [facility] HospitalWbjjaexSPIDAUUIB7280-78-47 06:27:00 Test Item Value Reference Range Interpretation Comments pO2 Justin (test code = pO2 Justin) 37 20-49 [facility] CenterMqyltlvQWFAZPQSM1733-55-82 06:27:00 Test Item Value Reference Range Interpretation Comments HCO3 Justin (test code = HCO3 Justin) 31 22-26 [facility] CenterOibzxbqDCNQSOPLE0206-65-72 06:27:00 Test Item Value Reference Range Interpretation Comments BE Justin (test code = BE Justin) 3 -2-2 [facility] CenterHerwefhIUUJOIKMK0240-68-07 06:27:00 Test Item Value Reference Range Interpretation Comments O2 Sat Justin (calc) (test code = O2 Sat 63.0 40.0-70.0 Justin (calc)) [facility] CenterXzyvtltZZUTRRJMZ1622-41-94 06:27:00 Test Item Value Reference Range Interpretation Comments Temp Justin (test code = Temp Justin) 37.0 [facility] CenterZdyxxvqMMTLEBCGT0680-56-14 06:27:00 Test Item Value Reference Range Interpretation Comments Lactic Acid Lvl (test code = Lactic 0.5 0.5-2.2 Acid Lvl) [facility] CenterAvmepmdDIQLRFOKP1183-78-53 06:27:00 Test Item Value Reference Range Interpretation Comments TSH (test code = TSH) 0.403 0.360-3.740 [facility] HospitalAwqspyoKJWYVXETFK3926-50-50 06:27:00 Test Item Value Reference Range Interpretation Comments WBC X 10x3 (test code = WBC X 10x3) 5.9 3.7-10.4 [facility] HospitalHutklmaXPYSUQTZDD4336-70-66 06:27:00 Test Item Value Reference Range Interpretation Comments RBC X 10x6 (test code = RBC X 10x6) 3.67 4.20-5.40 [facility] HospitalPwjvnypBSVBGURUQX5324-29-27 06:27:00 Test Item Value Reference Range Interpretation Comments Hgb (test code = Hgb) 10.7 12.0-16.0 [place] 638193-02-27 06:27:00 Test Item Value Reference Range Interpretation Comments Hct (test code = Hct) 33.5 36.0-48.0 [facility] HospitalUeqgdelLIMTWMHKWU9342-58-98 06:27:00 Test Item Value Reference Range Interpretation Comments MCV (test code = MCV) 91.4 80.0-98.0 [facility] HospitalDiaqcxiCLXGVTHYTH2664-74-84 06:27:00 Test Item Value Reference Range Interpretation Comments MCH (test code = MCH) 29.3 pg 27.0-31.0 [place] 638193-02-27 06:27:00 Test Item Value Reference Range Interpretation Comments MCHC (test code = MCHC) 32.0 32.0-36.0 [place] 638193-02-27 06:27:00 Test Item Value Reference Range Interpretation Comments RDW (test code = RDW) 13.7 11.5-14.5 [place] 638193-02-27 06:27:00 Test Item Value Reference Range Interpretation Comments Platelet (test code = Platelet) 139 133-450 [place] 638193-02-27 06:27:00 Test Item Value Reference Range Interpretation Comments MPV (test code = MPV) 7.5 7.4-10.4 [place] 638193-02-27 06:27:00 Test Item Value Reference Range Interpretation Comments ACT (TEG) Rapid (test code = ACT (TEG) 121 s 86-118 Rapid) [place] 638193-02-27 06:27:00 Test Item Value Reference Range Interpretation Comments Split Point Rapid (test code = Split 0.6 min Point Rapid) [place] [address]-02-27 06:27:00 Test Item Value Reference Range Interpretation Comments R-time Rapid (test code = R-time 0.8 min 0.4-0.7 Rapid) [place] [address]-02-27 06:27:00 Test Item Value Reference Range Interpretation Comments K-time Rapid (test code = K-time 0.8 min 0.6-2.3 Rapid) [place] 638193-02-27 06:27:00 Test Item Value Reference Range Interpretation Comments Angle Rapid (test code = Angle 79 degrees 64-80 Rapid) [place] [address]-02-27 06:27:00 Test Item Value Reference Range Interpretation Comments Max Amplitude Rapid (test code = Max 71 mm 52-71 Amplitude Rapid) [place] [address]-02-27 06:27:00 Test Item Value Reference Range Interpretation Comments G-value Rapid (test code = G-value 12.1 5.0-11.6 Rapid) [place] 638193-02-27 06:27:00 Test Item Value Reference Range Interpretation Comments Estimated % Lysis Rapid 0.0 See_Comment [Au tomated message] The (test code = Estimated syste m which generated % Lysis Rapid) this result t ransmitted reference range : <=7.5. The reference r christiano was not used to int erpret this result as normal/abnormal . [facility] HospitalDapbgigZNUUMTLRLF7801-49-30 06:27:00 Test Item Value Reference Range Interpretation Comments RBC Morph (test code = Normal (11/27/22 12:27 RBC Morph) AM) [facility] HospitalLdpkpqlZBFLZFPUWT3922-12-26 06:27:00 Test Item Value Reference Range Interpretation Comments Plt Morph (test code = Normal (11/27/22 12:27 Plt Morph) AM) [facility] HospitalYizcosqRFVNWDYVUD6405-68-24 06:27:00 Test Item Value Reference Range Interpretation Comments Segs (test code = Segs) 60.1 45.0-75.0 [facility] HospitalKodbrzfEAVTBEADOC5017-93-03:27:00 Test Item Value Reference Range Interpretation Comments Lymphocytes (test code = Lymphocytes) 23.9 20.0-40.0 [facility] HospitalXxjhaapOUAKBZSLFV0094-31-62:27:00 Test Item Value Reference Range Interpretation Comments Monocytes (test code = Monocytes) 9.6 2.0-12.0 [facility] HospitalWpfbsxiTLRQIBOYTU3535-35-06 06:27:00 Test Item Value Reference Range Interpretation Comments Eosinophils (test code = 5.2 See_Comment [A utomated message] The Eosinophils) system which nerated this result tra nsmitted reference range : <=4.0. The reference r christiano was not used to int erpret this result as normal/abnormal . [facility] HospitalKfmftcnZGGRNGPEAL7726-01-44:27:00 Test Item Value Reference Range Interpretation Comments Basophils (test code = 1.2 See_Comment [Aut omated message] The Basophils) system which ge nerated this result tra nsmitted reference range : <=1.0. The reference r christiano was not used to int erpret this result as normal/abnormal . [facility] HospitalAimeejbJIOQZOKYEJ7099-06-14 06:27:00 Test Item Value Reference Range Interpretation Comments Neutrophils # (test code = Neutrophils 3.5 1.5-8.1 #) [facility] HospitalShtfwihBKSLEEMJVT5030-15-74 06:27:00 Test Item Value Reference Range Interpretation Comments Lymphocytes # (test code = Lymphocytes 1.4 1.0-5.5 #) [facility] HospitalEgzupuuOCUHKXPTCM5626-65-61 06:27:00 Test Item Value Reference Range Interpretation Comments Monocytes # (test code 0.6 See_Comment [Aut omated message] The = Monocytes #) system which generated this result tra nsmitted reference range : <=0.8. The reference r christiano was not used to int erpret this result as normal/abnormal . [facility] HospitalJhweplrBKKFFZOPLR6793-05-65 06:27:00 Test Item Value Reference Range Interpretation Comments Eosinophils # (test code 0.3 See_Comment [A utomated message] The = Eosinophils #) system whic h generated this result tra nsmitted reference range : <=0.5. The reference r christiano was not used to int erpret this result as normal/abnormal . [facility] HospitalYzjxbieGYHRDHUDQZ5143-28-33 06:27:00 Test Item Value Reference Range Interpretation Comments Basophils # (test code 0.1 See_Comment [Aut omated message] The = Basophils #) system which generated this result tra nsmitted reference range : <=0.2. The reference r christiano was not used to int erpret this result as normal/abnormal . [facility]OMM2539[facility]75-91 06:27:00 Test Item Value Reference Range Interpretation Comments ACT (TEG) Rapid (test code = ACT (TEG) 121 s 86-118 Rapid) [place] 638193-02-27 06:27:00 Test Item Value Reference Range Interpretation Comments Split Point Rapid (test code = Split 0.6 min Point Rapid) [place] [address]-02-27 06:27:00 Test Item Value Reference Range Interpretation Comments R-time Rapid (test code = R-time 0.8 min 0.4-0.7 Rapid) [place] [address]-02-27 06:27:00 Test Item Value Reference Range Interpretation Comments K-time Rapid (test code = K-time 0.8 min 0.6-2.3 Rapid) [place] [address]-02-27 06:27:00 Test Item Value Reference Range Interpretation Comments Angle Rapid (test code = Angle 79 degrees 64-80 Rapid) [place] [address]-02-27 06:27:00 Test Item Value Reference Range Interpretation Comments Max Amplitude Rapid (test code = Max 71 mm 52-71 Amplitude Rapid) [place] 638193-02-27 06:27:00 Test Item Value Reference Range Interpretation Comments G-value Rapid (test code = G-value 12.1 5.0-11.6 Rapid) [place] 638193-02-27 06:27:00 Test Item Value Reference Range Interpretation Comments Estimated % Lysis Rapid 0.0 See_Comment [Au tomated message] The (test code = Estimated syste m which generated % Lysis Rapid) this result t ransmitted reference range : <=7.5. The reference r christiano was not used to int erpret this result as normal/abnormal . [place] 638193-02-27 06:27:00 Test Item Value Reference Range Interpretation Comments RBC Morph (test code = Normal (11/27/22 12:27 RBC Morph) AM) [place] [address]-02-27 06:27:00 Test Item Value Reference Range Interpretation Comments Plt Morph (test code = Normal (11/27/22 12:27 Plt Morph) AM) [place] 638193-02-27 06:27:00 Test Item Value Reference Range Interpretation Comments Basophils # (test code 0.1 See_Comment [Aut omated message] The = Basophils #) system which generated this result tra nsmitted reference range : <=0.2. The reference r christiano was not used to int erpret this result as normal/abnormal . [place] 218493-02-27 06:27:00 Test Item Value Reference Range Interpretation Comments Glucose Lvl (test code = Glucose Lvl) 85 70-99 [place] 218493-02-27 06:27:00 Test Item Value Reference Range Interpretation Comments BUN (test code = BUN) 28 7-22 [place] [address]-02-27 06:27:00 Test Item Value Reference Range Interpretation Comments Creatinine Lvl (test code = Creatinine 2.19 0.50-1.40 Lvl) [place] 218493-02-27 06:27:00 Test Item Value Reference Range Interpretation Comments Sodium Lvl (test code = Sodium Lvl) 143 135-145 [place] 218493-02-27 06:27:00 Test Item Value Reference Range Interpretation Comments Potassium Lvl (test code = Potassium 4.3 3.5-5.1 Lvl) [place] 218493-02-27 06:27:00 Test Item Value Reference Range Interpretation Comments Chloride Lvl (test code = Chloride Lvl) 110 95-109 [place] 218493-02-27 06:27:00 Test Item Value Reference Range Interpretation Comments CO2 (test code = CO2) 27 24-32 [place] 218493-02-27 06:27:00 Test Item Value Reference Range Interpretation Comments Calcium Lvl (test code = Calcium Lvl) 8.1 8.5-10.5 [place] 218493-02-27 06:27:00 Test Item Value Reference Range Interpretation Comments AGAP (test code = AGAP) 10.3 10.0-20.0 [place] 218493-02-27 06:27:00 Test Item Value Reference Range Interpretation Comments eGFR (test code = eGFR) 22 [place] 218493-02-27 06:27:00 Test Item Value Reference Range Interpretation Comments Total Protein (test code = Total 6.6 6.4-8.4 Protein) [place] 218493-02-27 06:27:00 Test Item Value Reference Range Interpretation Comments Albumin Lvl (test code = Albumin Lvl) 3.0 3.5-5.0 [place] 218493-02-27 06:27:00 Test Item Value Reference Range Interpretation Comments Globulin (test code = Globulin) 3.6 2.7-4.2 [place] 218493-02-27 06:27:00 Test Item Value Reference Range Interpretation Comments A/G Ratio (test code = A/G Ratio) 0.8 1 0.7-1.6 [place] [address]-02-27 06:27:00 Test Item Value Reference Range Interpretation Comments ALANINE AMINOTRANSFERASE 21 See_Comment [A utomated message] (test code = ALANINE The sys tem which AMINOTRANSFERASE) generated this result transmitted ref erence range: <=65. Th e reference range was not used to int erpret this result as normal/abnormal . [place] 218493-02-27 06:27:00 Test Item Value Reference Range Interpretation Comments AST (test code = AST) 17 See_Comment [Auto mated message] The system which ge nerated this result transmit sheba reference range : <=37. The reference range was not used to interpr et this result as edy l/abnormal. [place] 218493-02-27 06:27:00 Test Item Value Reference Range Interpretation Comments Alk Phos (test code = Alk Phos) 84 39-136 [place] 218493-02-27 06:27:00 Test Item Value Reference Range Interpretation Comments Bili Total (test code = Bili Total) 0.3 0.2-1.3 [place] [address]-02-27 06:27:00 Test Item Value Reference Range Interpretation Comments Bili Direct (test code no gt See_Comment [Aut omated message] The = Bili Direct) system which generated this result tra nsmitted reference range : <=0.3. The reference r christiano was not used to int erpret this result as edy l/abnormal. [place] 218493-02-27 06:27:00 Test Item Value Reference Range Interpretation Comments Bili Indirect Unable to See_Comment [Automated (test code = Bili Calculate message] T he system Indirect) which generated this result transmitted reference range : <=1.0. The reference range was not used to interpret this result as normal/abnormal . [place] 218493-02-27 06:27:00 Test Item Value Reference Range Interpretation Comments Lactic Acid Lvl (test code = Lactic 0.5 0.5-2.2 Acid Lvl) [place] [address]-02-27 06:27:00 Test Item Value Reference Range Interpretation Comments Total Protein (test code = Total 6.6 6.4-8.4 Protein) [place] [address]-02-27 06:27:00 Test Item Value Reference Range Interpretation Comments Albumin Lvl (test code = Albumin Lvl) 3.0 3.5-5.0 [place] [address]-02-27 06:27:00 Test Item Value Reference Range Interpretation Comments Globulin (test code = Globulin) 3.6 2.7-4.2 [place] [address]-02-27 06:27:00 Test Item Value Reference Range Interpretation Comments A/G Ratio (test code = A/G Ratio) 0.8 1 0.7-1.6 [place] [address]-02-27 06:27:00 Test Item Value Reference Range Interpretation Comments ALANINE AMINOTRANSFERASE 21 See_Comment [A utomated message] (test code = ALANINE The sys tem which AMINOTRANSFERASE) generated this result transmitted ref erence range: <=65. Th e reference range was not used to int erpret this result as normal/abnormal . [facility]fhghaqJLISGONWO1175-26-23 06:27:00 Test Item Value Reference Range Interpretation Comments AST (test code = AST) 17 See_Comment [Auto mated message] The system which ge nerated this result transmit sheba reference range : <=37. The reference range was not used to interpr et this result as edy l/abnormal. [facility] HospitalHsszmaxKRTDYKZQJ8849-90-64 06:27:00 Test Item Value Reference Range Interpretation Comments Alk Phos (test code = Alk Phos) 84 39-136 [facility] HospitalFtsiemyZAMAECDCP4927-57-12 06:27:00 Test Item Value Reference Range Interpretation Comments Bili Total (test code = Bili Total) 0.3 0.2-1.3 [facility] HospitalFphqauvSWQUIXFEJ2895-14-36 06:27:00 Test Item Value Reference Range Interpretation Comments Bili Direct (test code no gt See_Comment [Aut omated message] The = Bili Direct) system which generated this result tra nsmitted reference range : <=0.3. The reference r christiano was not used to int erpret this result as edy l/abnormal. [facility] HospitalIpqzwmiYNVVXRCZH6126-98-45 06:27:00 Test Item Value Reference Range Interpretation Comments Bili Indirect Unable to See_Comment [Automated (test code = Bili Calculate message] T he system Indirect) which generated this result transmitted reference range : <=1.0. The reference range was not used to interpret this result as normal/abnormal . [facility] HospitalUwrhbmcQXNUGEUGU1401-07-72 06:27:00 Test Item Value Reference Range Interpretation Comments pH Justin (test code = pH Justin) 7.29 1 7.28-7.42 [facility] HospitalKjsiqmzXTCAWLYSO6142-21-17 06:27:00 Test Item Value Reference Range Interpretation Comments pCO2 Justin (test code = pCO2 Justin) 65 38-52 [facility] HospitalKgurtvbUJNQHBIIE1010-04-42 06:27:00 Test Item Value Reference Range Interpretation Comments pO2 Justin (test code = pO2 Justin) 37 20-49 [facility]sr[facility]jd[facility]TGIIJDIM9166[facility]81-36 06:27:00 Test Item Value Reference Range Interpretation Comments HCO3 Justin (test code = HCO3 Justin) 31 - [facility] CenterOeehmtzDPTXEKFLM0790-56-49 06:27:00 Test Item Value Reference Range Interpretation Comments BE Justin (test code = BE Justin) 3 -2-2 [facility] CenterIzfspphJUWHXGVJS9389-89-72 06:27:00 Test Item Value Reference Range Interpretation Comments O2 Sat Justin (calc) (test code = O2 Sat 63.0 40.0-70.0 Justin (calc)) [facility] CenterDsijancLCZHGOYOP1155-84-37 06:27:00 Test Item Value Reference Range Interpretation Comments Temp Justin (test code = Temp Justin) 37.0 [facility] CenterXzwlkkbGVETSZVBB0959-52-23 06:27:00 Test Item Value Reference Range Interpretation Comments Lactic Acid Lvl (test code = Lactic 0.5 0.5-2.2 Acid Lvl) [facility] CenterSqhtuyhUMWVUPTCC9803-87-82 06:27:00 Test Item Value Reference Range Interpretation Comments TSH (test code = TSH) 0.403 0.360-3.740 [facility] HospitalBztaeufMZYAXQQKEV0296-95-68 06:27:00 Test Item Value Reference Range Interpretation Comments WBC X 10x3 (test code = WBC X 10x3) 5.9 3.7-10.4 [facility] HospitalGfjpjhzLJZCPLSHCI3923-23-36 06:27:00 Test Item Value Reference Range Interpretation Comments RBC X 10x6 (test code = RBC X 10x6) 3.67 4.20-5.40 [facility] HospitalVrnzsjoKFZGJLGHFK7858-21-33 06:27:00 Test Item Value Reference Range Interpretation Comments Hgb (test code = Hgb) 10.7 12.0-16.0 [facility] HospitalZoksfnnKXQRLAWLAV9672-52-03 06:27:00 Test Item Value Reference Range Interpretation Comments Hct (test code = Hct) 33.5 36.0-48.0 [facility] HospitalZbgyiofIMPGWXRYEK2068-97-93 06:27:00 Test Item Value Reference Range Interpretation Comments MCV (test code = MCV) 91.4 80.0-98.0 [facility] HospitalIevokjvZEATLSVRVW0410-04-60 06:27:00 Test Item Value Reference Range Interpretation Comments MCH (test code = MCH) 29.3 pg 27.0-31.0 [place] 638193-02-27 06:27:00 Test Item Value Reference Range Interpretation Comments MCHC (test code = MCHC) 32.0 32.0-36.0 [place] 638193-02-27 06:27:00 Test Item Value Reference Range Interpretation Comments RDW (test code = RDW) 13.7 11.5-14.5 [place] [address]-02-27 06:27:00 Test Item Value Reference Range Interpretation Comments Platelet (test code = Platelet) 139 133-450 [place] 638193-02-27 06:27:00 Test Item Value Reference Range Interpretation Comments MPV (test code = MPV) 7.5 7.4-10.4 [place] [address]-02-27 06:27:00 Test Item Value Reference Range Interpretation Comments ACT (TEG) Rapid (test code = ACT (TEG) 121 s 86-118 Rapid) [place] [address]-02-27 06:27:00 Test Item Value Reference Range Interpretation Comments Split Point Rapid (test code = Split 0.6 min Point Rapid) [place] 638193-02-27 06:27:00 Test Item Value Reference Range Interpretation Comments R-time Rapid (test code = R-time 0.8 min 0.4-0.7 Rapid) [place] [address]-02-27 06:27:00 Test Item Value Reference Range Interpretation Comments K-time Rapid (test code = K-time 0.8 min 0.6-2.3 Rapid) [place] [address]-02-27 06:27:00 Test Item Value Reference Range Interpretation Comments Angle Rapid (test code = Angle 79 degrees 64-80 Rapid) [place] [address]-02-27 06:27:00 Test Item Value Reference Range Interpretation Comments Max Amplitude Rapid (test code = Max 71 mm 52-71 Amplitude Rapid) [place] [address]-02-27 06:27:00 Test Item Value Reference Range Interpretation Comments G-value Rapid (test code = G-value 12.1 5.0-11.6 Rapid) [place] [address]-02-27 06:27:00 Test Item Value Reference Range Interpretation Comments Estimated % Lysis Rapid 0.0 See_Comment [Au tomated message] The (test code = Estimated syste m which generated % Lysis Rapid) this result t ransmitted reference range : <=7.5. The reference r christiano was not used to int erpret this result as normal/abnormal . [facility] HospitalXvojdupWNAJZRYAPK2048-78-91 06:27:00 Test Item Value Reference Range Interpretation Comments RBC Morph (test code = Normal (11/27/22 12:27 RBC Morph) AM) [facility] HospitalWsktkfwRHEPOKPOGZ4753-08-46 06:27:00 Test Item Value Reference Range Interpretation Comments Plt Morph (test code = Normal (11/27/22 12:27 Plt Morph) AM) [facility] HospitalShepucpVDMDVEYSTD3203-73-53 06:27:00 Test Item Value Reference Range Interpretation Comments Segs (test code = Segs) 60.1 45.0-75.0 [facility] HospitalZbgeaicNRGLGQLKHN0480-55-41 06:27:00 Test Item Value Reference Range Interpretation Comments Lymphocytes (test code = Lymphocytes) 23.9 20.0-40.0 [facility] HospitalMshhivkFVQFMHPZAW6609-85-45 06:27:00 Test Item Value Reference Range Interpretation Comments Monocytes (test code = Monocytes) 9.6 2.0-12.0 [facility] HospitalEpzphriICIJASKWAU7981-95-28 06:27:00 Test Item Value Reference Range Interpretation Comments Eosinophils (test code = 5.2 See_Comment [A utomated message] The Eosinophils) system which ge nerated this result tra nsmitted reference range : <=4.0. The reference r christiano was not used to int erpret this result as normal/abnormal . [facility] HospitalXvsdozpTAXSUVEUMO7913-70-20 06:27:00 Test Item Value Reference Range Interpretation Comments Basophils (test code = 1.2 See_Comment [Aut omated message] The Basophils) system which ge nerated this result tra nsmitted reference range : <=1.0. The reference r christiano was not used to int erpret this result as normal/abnormal . [facility] HospitalIczuonpETFFJENJVR7522-31-46 06:27:00 Test Item Value Reference Range Interpretation Comments Neutrophils # (test code = Neutrophils 3.5 1.5-8.1 #) [facility] HospitalNennexmLVBVVXTWTT0064-21-98 06:27:00 Test Item Value Reference Range Interpretation Comments Lymphocytes # (test code = Lymphocytes 1.4 1.0-5.5 #) [facility] HospitalFauxqqvTJGNBNEIMR6953-64-27 06:27:00 Test Item Value Reference Range Interpretation Comments Monocytes # (test code 0.6 See_Comment [Aut omated message] The = Monocytes #) system which generated this result tra nsmitted reference range : <=0.8. The reference r christiano was not used to int erpret this result as normal/abnormal . [facility] HospitalPzcxfpsCSETIYJXZH9042-94-46 06:27:00 Test Item Value Reference Range Interpretation Comments Eosinophils # (test code 0.3 See_Comment [A utomated message] The = Eosinophils #) system whic h generated this result tra nsmitted reference range : <=0.5. The reference r christiano was not used to int erpret this result as normal/abnormal . [facility] HospitalViepktwONXNBIAPBG2741-35-78 06:27:00 Test Item Value Reference Range Interpretation Comments Basophils # (test code 0.1 See_Comment [Aut omated message] The = Basophils #) system which generated this result tra nsmitted reference range : <=0.2. The reference r christiano was not used to int erpret this result as normal/abnormal . [facility] HospitalQgvnoiqFTIJWZNCVI7715-93-68 06:27:00 Test Item Value Reference Range Interpretation Comments ACT (TEG) Rapid (test code = ACT (TEG) 121 s 86-118 Rapid) [place] 638193-02-27 06:27:00 Test Item Value Reference Range Interpretation Comments Split Point Rapid (test code = Split 0.6 min Point Rapid) [place] 638193-02-27 06:27:00 Test Item Value Reference Range Interpretation Comments R-time Rapid (test code = R-time 0.8 min 0.4-0.7 Rapid) [place] 638193-02-27 06:27:00 Test Item Value Reference Range Interpretation Comments K-time Rapid (test code = K-time 0.8 min 0.6-2.3 Rapid) [place] 638193-02-27 06:27:00 Test Item Value Reference Range Interpretation Comments Angle Rapid (test code = Angle 79 degrees 64-80 Rapid) [facility] HospitalDqnahwlSBRZWVNLAA4973-41-14 06:27:00 Test Item Value Reference Range Interpretation Comments Max Amplitude Rapid (test code = Max 71 mm 52-71 Amplitude Rapid) [place] [address]-02-27 06:27:00 Test Item Value Reference Range Interpretation Comments G-value Rapid (test code = G-value 12.1 5.0-11.6 Rapid) [place] 638193-02-27 06:27:00 Test Item Value Reference Range Interpretation Comments Estimated % Lysis Rapid 0.0 See_Comment [Au tomated message] The (test code = Estimated syste m which generated % Lysis Rapid) this result t ransmitted reference range : <=7.5. The reference r christiano was not used to int erpret this result as normal/abnormal . [place] 638193-02-27 06:27:00 Test Item Value Reference Range Interpretation Comments RBC Morph (test code = Normal (11/27/22 12:27 RBC Morph) AM) [place] 638193-02-27 06:27:00 Test Item Value Reference Range Interpretation Comments Plt Morph (test code = Normal (11/27/22 12:27 Plt Morph) AM) [place] 638193-02-27 06:27:00 Test Item Value Reference Range Interpretation Comments Basophils # (test code 0.1 See_Comment [Aut omated message] The = Basophils #) system which generated this result tra nsmitted reference range : <=0.2. The reference r christiano was not used to int erpret this result as normal/abnormal . [facility]2023-02-27 06:27:00 Test Item Value Reference Range Interpretation Comments Glucose Lvl (test code = Glucose Lvl) 85 70-99 [facility]2023-02-27 06:27:00 Test Item Value Reference Range Interpretation Comments BUN (test code = BUN) 28 7-22 [place] 218493-02-27 06:27:00 Test Item Value Reference Range Interpretation Comments Creatinine Lvl (test code = Creatinine 2.19 0.50-1.40 Lvl) [place] 218493-02-27 06:27:00 Test Item Value Reference Range Interpretation Comments Sodium Lvl (test code = Sodium Lvl) 143 135-145 [place] 218493-02-27 06:27:00 Test Item Value Reference Range Interpretation Comments Potassium Lvl (test code = Potassium 4.3 3.5-5.1 Lvl) [place] 218493-02-27 06:27:00 Test Item Value Reference Range Interpretation Comments Chloride Lvl (test code = Chloride Lvl) 110 95-109 [place] 218493-02-27 06:27:00 Test Item Value Reference Range Interpretation Comments CO2 (test code = CO2) 27 24-32 [place] 218493-02-27 06:27:00 Test Item Value Reference Range Interpretation Comments Calcium Lvl (test code = Calcium Lvl) 8.1 8.5-10.5 [place] 218493-02-27 06:27:00 Test Item Value Reference Range Interpretation Comments AGAP (test code = AGAP) 10.3 10.0-20.0 [place] 218493-02-27 06:27:00 Test Item Value Reference Range Interpretation Comments eGFR (test code = eGFR) 22 [place] 218493-02-27 06:27:00 Test Item Value Reference Range Interpretation Comments Total Protein (test code = Total 6.6 6.4-8.4 Protein) [place] 218493-02-27 06:27:00 Test Item Value Reference Range Interpretation Comments Albumin Lvl (test code = Albumin Lvl) 3.0 3.5-5.0 [place] 218493-02-27 06:27:00 Test Item Value Reference Range Interpretation Comments Globulin (test code = Globulin) 3.6 2.7-4.2 [place] 218493-02-27 06:27:00 Test Item Value Reference Range Interpretation Comments A/G Ratio (test code = A/G Ratio) 0.8 1 0.7-1.6 [place] 218493-02-27 06:27:00 Test Item Value Reference Range Interpretation Comments ALANINE AMINOTRANSFERASE 21 See_Comment [A utomated message] (test code = ALANINE The sys tem which AMINOTRANSFERASE) generated this result transmitted ref erence range: <=65. Th e reference range was not used to int erpret this result as normal/abnormal . [place] 218493-02-27 06:27:00 Test Item Value Reference Range Interpretation Comments AST (test code = AST) 17 See_Comment [Auto mated message] The system which ge nerated this result transmit sheba reference range : <=37. The reference range was not used to interpr et this result as edy l/abnormal. [place] 218493-02-27 06:27:00 Test Item Value Reference Range Interpretation Comments Alk Phos (test code = Alk Phos) 84 39-136 [place] 218493-02-27 06:27:00 Test Item Value Reference Range Interpretation Comments Bili Total (test code = Bili Total) 0.3 0.2-1.3 [place] 218493-02-27 06:27:00 Test Item Value Reference Range Interpretation Comments Bili Direct (test code no gt See_Comment [Aut omated message] The = Bili Direct) system which generated this result tra nsmitted reference range : <=0.3. The reference r christiano was not used to int erpret this result as edy l/abnormal. [place] 218493-02-27 06:27:00 Test Item Value Reference Range Interpretation Comments Bili Indirect Unable to See_Comment [Automated (test code = Bili Calculate message] T he system Indirect) which generated this result transmitted reference range : <=1.0. The reference range was not used to interpret this result as normal/abnormal . [place] 218493-02-27 06:27:00 Test Item Value Reference Range Interpretation Comments Lactic Acid Lvl (test code = Lactic 0.5 0.5-2.2 Acid Lvl) [place] [address]-02-27 06:27:00 Test Item Value Reference Range Interpretation Comments Total Protein (test code = Total 6.6 6.4-8.4 Protein) [place] [address]-02-27 06:27:00 Test Item Value Reference Range Interpretation Comments Albumin Lvl (test code = Albumin Lvl) 3.0 3.5-5.0 [place] [address]-02-27 06:27:00 Test Item Value Reference Range Interpretation Comments Globulin (test code = Globulin) 3.6 2.7-4.2 [place] [address]-02-27 06:27:00 Test Item Value Reference Range Interpretation Comments A/G Ratio (test code = A/G Ratio) 0.8 1 0.7-1.6 [place] [address]-02-27 06:27:00 Test Item Value Reference Range Interpretation Comments ALANINE AMINOTRANSFERASE 21 See_Comment [A utomated message] (test code = ALANINE The sys tem which AMINOTRANSFERASE) generated this result transmitted ref erence range: <=65. Th e reference range was not used to int erpret this result as normal/abnormal . [facility]FprhbxtEOEMNCCSO9433-92-27 06:27:00 Test Item Value Reference Range Interpretation Comments AST (test code = AST) 17 See_Comment [Auto mated message] The system which ge nerated this result transmit sheba reference range : <=37. The reference range was not used to interpr et this result as edy l/abnormal. [facility] HospitalFkthuxwFZPTDNFDZ0293-87-46 06:27:00 Test Item Value Reference Range Interpretation Comments Alk Phos (test code = Alk Phos) 84 39-136 [facility] HospitalYitruvuIMKXWZIMH8349-05-55 06:27:00 Test Item Value Reference Range Interpretation Comments Bili Total (test code = Bili Total) 0.3 0.2-1.3 [facility]FTG0020-88-65 06:27:00 Test Item Value Reference Range Interpretation Comments Bili Direct (test code no gt See_Comment [Aut omated message] The = Bili Direct) system which generated this result tra nsmitted reference range : <=0.3. The reference r christiano was not used to int erpret this result as edy l/abnormal. [facility] HospitalWvlbcohNMFQECIEY8376-38-42 06:27:00 Test Item Value Reference Range Interpretation Comments Bili Indirect Unable to See_Comment [Automated (test code = Bili Calculate message] T he system Indirect) which generated this result transmitted reference range : <=1.0. The reference range was not used to interpret this result as normal/abnormal . [facility] HospitalUszfqotTHOOBHDIT6192-84-91 06:27:00 Test Item Value Reference Range Interpretation Comments pH Justin (test code = pH Justin) 7.29 1 7.28-7.42 [facility] HospitalIoybkkwQBNIINZDC3123-56-95 06:27:00 Test Item Value Reference Range Interpretation Comments pCO2 Justin (test code = pCO2 Justin) 65 38-52 [facility] HospitalLssdmonWCCGLATIU5131-17-66 06:27:00 Test Item Value Reference Range Interpretation Comments pO2 Justin (test code = pO2 Justin) 37 20-49 [facility]ftw[facility]TSSEMIVK9101[facility]34-75 06:27:00 Test Item Value Reference Range Interpretation Comments HCO3 Justin (test code = HCO3 Justin) 31 22-26 [place] 711743-02-27 06:27:00 Test Item Value Reference Range Interpretation Comments BE Justin (test code = BE Justin) 3 -2-2 [place] 711743-02-27 06:27:00 Test Item Value Reference Range Interpretation Comments O2 Sat Justin (calc) (test code = O2 Sat 63.0 40.0-70.0 Justin (calc)) [facility]ed[facility]qASBFQRZJV9018-42-73 06:27:00 Test Item Value Reference Range Interpretation Comments Temp Justin (test code = Temp Justin) 37.0 [place] 711743-02-27 06:27:00 Test Item Value Reference Range Interpretation Comments Lactic Acid Lvl (test code = Lactic 0.5 0.5-2.2 Acid Lvl) [facility]DqelrnwNLBRMXOEO3122-84-80 06:27:00 Test Item Value Reference Range Interpretation Comments TSH (test code = TSH) 0.403 0.360-3.740 [facility]TxcblofACMQMLSMXK3772-24-35 06:27:00 Test Item Value Reference Range Interpretation Comments WBC X 10x3 (test code = WBC X 10x3) 5.9 3.7-10.4 [facility] HospitalKjylzmzIOACXZSCPQ5546-16-99 06:27:00 Test Item Value Reference Range Interpretation Comments RBC X 10x6 (test code = RBC X 10x6) 3.67 4.20-5.40 [facility] HospitalYngedfeHDLLGLDBNU5514-11-13 06:27:00 Test Item Value Reference Range Interpretation Comments Hgb (test code = Hgb) 10.7 12.0-16.0 [place] 638193-02-27 06:27:00 Test Item Value Reference Range Interpretation Comments Hct (test code = Hct) 33.5 36.0-48.0 [place] 638193-02-27 06:27:00 Test Item Value Reference Range Interpretation Comments MCV (test code = MCV) 91.4 80.0-98.0 [place] 638193-02-27 06:27:00 Test Item Value Reference Range Interpretation Comments MCH (test code = MCH) 29.3 pg 27.0-31.0 [place] 638193-02-27 06:27:00 Test Item Value Reference Range Interpretation Comments MCHC (test code = MCHC) 32.0 32.0-36.0 [place] 638193-02-27 06:27:00 Test Item Value Reference Range Interpretation Comments RDW (test code = RDW) 13.7 11.5-14.5 [place] 638193-02-27 06:27:00 Test Item Value Reference Range Interpretation Comments Platelet (test code = Platelet) 139 133-450 [place] 638193-02-27 06:27:00 Test Item Value Reference Range Interpretation Comments MPV (test code = MPV) 7.5 7.4-10.4 [place] 638193-02-27 06:27:00 Test Item Value Reference Range Interpretation Comments ACT (TEG) Rapid (test code = ACT (TEG) 121 s 86-118 Rapid) [place] 638193-02-27 06:27:00 Test Item Value Reference Range Interpretation Comments Split Point Rapid (test code = Split 0.6 min Point Rapid) [place] 638193-02-27 06:27:00 Test Item Value Reference Range Interpretation Comments R-time Rapid (test code = R-time 0.8 min 0.4-0.7 Rapid) [place] 638193-02-27 06:27:00 Test Item Value Reference Range Interpretation Comments K-time Rapid (test code = K-time 0.8 min 0.6-2.3 Rapid) [place] 638193-02-27 06:27:00 Test Item Value Reference Range Interpretation Comments Angle Rapid (test code = Angle 79 degrees 64-80 Rapid) [place] 638193-02-27 06:27:00 Test Item Value Reference Range Interpretation Comments Max Amplitude Rapid (test code = Max 71 mm 52-71 Amplitude Rapid) [place] 638193-02-27 06:27:00 Test Item Value Reference Range Interpretation Comments G-value Rapid (test code = G-value 12.1 5.0-11.6 Rapid) [place] 638193-02-27 06:27:00 Test Item Value Reference Range Interpretation Comments Estimated % Lysis Rapid 0.0 See_Comment [Au tomated message] The (test code = Estimated syste m which generated % Lysis Rapid) this result t ransmitted reference range : <=7.5. The reference r christiano was not used to int erpret this result as normal/abnormal . [facility] HospitalVmgowagHRMVPTFGIW6171-98-63 06:27:00 Test Item Value Reference Range Interpretation Comments RBC Morph (test code = Normal (11/27/22 12:27 RBC Morph) AM) [facility] HospitalMypgsqlHHLCMIQUPR8619-31-39 06:27:00 Test Item Value Reference Range Interpretation Comments Plt Morph (test code = Normal (11/27/22 12:27 Plt Morph) AM) [facility] HospitalHpmvnkdYUJXPXKZMG1744-32-61 06:27:00 Test Item Value Reference Range Interpretation Comments Segs (test code = Segs) 60.1 45.0-75.0 [place] 638193-02-27 06:27:00 Test Item Value Reference Range Interpretation Comments Lymphocytes (test code = Lymphocytes) 23.9 20.0-40.0 [place] 638193-02-27 06:27:00 Test Item Value Reference Range Interpretation Comments Monocytes (test code = Monocytes) 9.6 2.0-12.0 [place] 638193-02-27 06:27:00 Test Item Value Reference Range Interpretation Comments Eosinophils (test code = 5.2 See_Comment [A utomated message] The Eosinophils) system which ge nerated this result tra nsmitted reference range : <=4.0. The reference r christiano was not used to int erpret this result as normal/abnormal . [facility] HospitalBbfsujaLUUBACYCIN6853-49-94 06:27:00 Test Item Value Reference Range Interpretation Comments Basophils (test code = 1.2 See_Comment [Aut omated message] The Basophils) system which ge nerated this result tra nsmitted reference range : <=1.0. The reference r christiano was not used to int erpret this result as normal/abnormal . [facility] HospitalQkybilbTZBXHBJINV5558-59-94 06:27:00 Test Item Value Reference Range Interpretation Comments Neutrophils # (test code = Neutrophils 3.5 1.5-8.1 #) [facility] HospitalLmngaxgVVSNDJZRRQ5801-22-49 06:27:00 Test Item Value Reference Range Interpretation Comments Lymphocytes # (test code = Lymphocytes 1.4 1.0-5.5 #) [place] 638193-02-27 06:27:00 Test Item Value Reference Range Interpretation Comments Monocytes # (test code 0.6 See_Comment [Aut omated message] The = Monocytes #) system which generated this result tra nsmitted reference range : <=0.8. The reference r christiano was not used to int erpret this result as normal/abnormal . [facility] HospitalEyidgbkCBPNMZELPW8131-44-96 06:27:00 Test Item Value Reference Range Interpretation Comments Eosinophils # (test code 0.3 See_Comment [A utomated message] The = Eosinophils #) system whic h generated this result tra nsmitted reference range : <=0.5. The reference r christiano was not used to int erpret this result as normal/abnormal . [facility] HospitalDvlvdguYDERLQMLRY5625-35-44 06:27:00 Test Item Value Reference Range Interpretation Comments Basophils # (test code 0.1 See_Comment [Aut omated message] The = Basophils #) system which generated this result tra nsmitted reference range : <=0.2. The reference r christiano was not used to int erpret this result as normal/abnormal . [facility] HospitalVbqnwdyCFIHRKKEMW3953-66-20 06:27:00 Test Item Value Reference Range Interpretation Comments ACT (TEG) Rapid (test code = ACT (TEG) 121 s 86-118 Rapid) [place] [address]-02-27 06:27:00 Test Item Value Reference Range Interpretation Comments Split Point Rapid (test code = Split 0.6 min Point Rapid) [place] [address]-02-27 06:27:00 Test Item Value Reference Range Interpretation Comments R-time Rapid (test code = R-time 0.8 min 0.4-0.7 Rapid) [place] [address]-02-27 06:27:00 Test Item Value Reference Range Interpretation Comments K-time Rapid (test code = K-time 0.8 min 0.6-2.3 Rapid) [place] [address]-02-27 06:27:00 Test Item Value Reference Range Interpretation Comments Angle Rapid (test code = Angle 79 degrees 64-80 Rapid) [place] [address]-02-27 06:27:00 Test Item Value Reference Range Interpretation Comments Max Amplitude Rapid (test code = Max 71 mm 52-71 Amplitude Rapid) [place] [address]-02-27 06:27:00 Test Item Value Reference Range Interpretation Comments G-value Rapid (test code = G-value 12.1 5.0-11.6 Rapid) [place] [address]-02-27 06:27:00 Test Item Value Reference Range Interpretation Comments Estimated % Lysis Rapid 0.0 See_Comment [Au tomated message] The (test code = Estimated syste m which generated % Lysis Rapid) this result t ransmitted reference range : <=7.5. The reference r christiano was not used to int erpret this result as normal/abnormal . [place] 638193-02-27 06:27:00 Test Item Value Reference Range Interpretation Comments RBC Morph (test code = Normal (11/27/22 12:27 RBC Morph) AM) [place] [address]-02-27 06:27:00 Test Item Value Reference Range Interpretation Comments Plt Morph (test code = Normal (11/27/22 12:27 Plt Morph) AM) [place] [address]-02-27 06:27:00 Test Item Value Reference Range Interpretation Comments Basophils # (test code 0.1 See_Comment [Aut omated message] The = Basophils #) system which generated this result tra nsmitted reference range : <=0.2. The reference r christiano was not used to int erpret this result as normal/abnormal . [facility]2023-02-27 06:27:00 Test Item Value Reference Range Interpretation Comments Glucose Lvl (test code = Glucose Lvl) 85 70-99 [place] 218493-02-27 06:27:00 Test Item Value Reference Range Interpretation Comments BUN (test code = BUN) 28 7-22 [place] [address]-02-27 06:27:00 Test Item Value Reference Range Interpretation Comments Creatinine Lvl (test code = Creatinine 2.19 0.50-1.40 Lvl) [place] 218493-02-27 06:27:00 Test Item Value Reference Range Interpretation Comments Sodium Lvl (test code = Sodium Lvl) 143 135-145 [place] 218493-02-27 06:27:00 Test Item Value Reference Range Interpretation Comments Potassium Lvl (test code = Potassium 4.3 3.5-5.1 Lvl) [place] 218493-02-27 06:27:00 Test Item Value Reference Range Interpretation Comments Chloride Lvl (test code = Chloride Lvl) 110 95-109 [place] 218493-02-27 06:27:00 Test Item Value Reference Range Interpretation Comments CO2 (test code = CO2) 27 24-32 [place] 218493-02-27 06:27:00 Test Item Value Reference Range Interpretation Comments Calcium Lvl (test code = Calcium Lvl) 8.1 8.5-10.5 [place] 218493-02-27 06:27:00 Test Item Value Reference Range Interpretation Comments AGAP (test code = AGAP) 10.3 10.0-20.0 [place] 218493-02-27 06:27:00 Test Item Value Reference Range Interpretation Comments eGFR (test code = eGFR) 22 [place] 218493-02-27 06:27:00 Test Item Value Reference Range Interpretation Comments Total Protein (test code = Total 6.6 6.4-8.4 Protein) [place] 218493-02-27 06:27:00 Test Item Value Reference Range Interpretation Comments Albumin Lvl (test code = Albumin Lvl) 3.0 3.5-5.0 [place] 218493-02-27 06:27:00 Test Item Value Reference Range Interpretation Comments Globulin (test code = Globulin) 3.6 2.7-4.2 [place] 218493-02-27 06:27:00 Test Item Value Reference Range Interpretation Comments A/G Ratio (test code = A/G Ratio) 0.8 1 0.7-1.6 [place] 218493-02-27 06:27:00 Test Item Value Reference Range Interpretation Comments ALANINE AMINOTRANSFERASE 21 See_Comment [A utomated message] (test code = ALANINE The sys tem which AMINOTRANSFERASE) generated this result transmitted ref erence range: <=65. Th e reference range was not used to int erpret this result as normal/abnormal . [place] 218493-02-27 06:27:00 Test Item Value Reference Range Interpretation Comments AST (test code = AST) 17 See_Comment [Auto mated message] The system which ge nerated this result transmit sheba reference range : <=37. The reference range was not used to interpr et this result as edy l/abnormal. [facility]FL[facility]ing [place] [address]141LAUNK7028-27-66 06:27:00 Test Item Value Reference Range Interpretation Comments Alk Phos (test code = Alk Phos) 84 39-136 [place] 218493-02-27 06:27:00 Test Item Value Reference Range Interpretation Comments Bili Total (test code = Bili Total) 0.3 0.2-1.3 [place] 218493-02-27 06:27:00 Test Item Value Reference Range Interpretation Comments Bili Direct (test code no gt See_Comment [Aut omated message] The = Bili Direct) system which generated this result tra nsmitted reference range : <=0.3. The reference r christiano was not used to int erpret this result as edy l/abnormal. [facility]TVPage [id number] 06:27:00 Test Item Value Reference Range Interpretation Comments Bili Indirect Unable to See_Comment [Automated (test code = Bili Calculate message] T he system Indirect) which generated this result transmitted reference range : <=1.0. The reference range was not used to interpret this result as normal/abnormal . [facility]TV[facility] BDAZI4698-38-38 06:27:00 Test Item Value Reference Range Interpretation Comments Lactic Acid Lvl (test code = Lactic 0.5 0.5-2.2 Acid Lvl) [facility] CenterFodjcrfGRGYYFFLC2353-80-24 06:27:00 Test Item Value Reference Range Interpretation Comments Total Protein (test code = Total 6.6 6.4-8.4 Protein) [place] [address]-02-27 06:27:00 Test Item Value Reference Range Interpretation Comments Albumin Lvl (test code = Albumin Lvl) 3.0 3.5-5.0 [place] [address]-02-27 06:27:00 Test Item Value Reference Range Interpretation Comments Globulin (test code = Globulin) 3.6 2.7-4.2 [place] [address]-02-27 06:27:00 Test Item Value Reference Range Interpretation Comments A/G Ratio (test code = A/G Ratio) 0.8 1 0.7-1.6 [place] 711743-02-27 06:27:00 Test Item Value Reference Range Interpretation Comments ALANINE AMINOTRANSFERASE 21 See_Comment [A utomated message] (test code = ALANINE The sys tem which AMINOTRANSFERASE) generated this result transmitted ref erence range: <=65. Th e reference range was not used to int erpret this result as normal/abnormal . [facility] FbgjpolREHVTFART6976-59-20 06:27:00 Test Item Value Reference Range Interpretation Comments AST (test code = AST) 17 See_Comment [Auto mated message] The system which ge nerated this result transmit sheba reference range : <=37. The reference range was not used to interpr et this result as edy l/abnormal. [facility] HospitalAoqnaraVPIWYEIOG5613-25-38 06:27:00 Test Item Value Reference Range Interpretation Comments Alk Phos (test code = Alk Phos) 84 39-136 [facility] HospitalRkmxsqpWENCOOPUW0452-71-35 06:27:00 Test Item Value Reference Range Interpretation Comments Bili Total (test code = Bili Total) 0.3 0.2-1.3 [facility] HospitalBjxjtzrXJUWUWNHH9794-78-88 06:27:00 Test Item Value Reference Range Interpretation Comments Bili Direct (test code no gt See_Comment [Aut omated message] The = Bili Direct) system which generated this result tra nsmitted reference range : <=0.3. The reference r christiano was not used to int erpret this result as edy l/abnormal. [facility] HospitalTzxldrkXRLIJRTBY3421-53-34 06:27:00 Test Item Value Reference Range Interpretation Comments Bili Indirect Unable to See_Comment [Automated (test code = Bili Calculate message] T he system Indirect) which generated this result transmitted reference range : <=1.0. The reference range was not used to interpret this result as normal/abnormal . [facility] HospitalYtitkbsBVAQZVNKG8023-60-12 06:27:00 Test Item Value Reference Range Interpretation Comments pH Justin (test code = pH Justin) 7.29 1 7.28-7.42 [facility] HospitalOampwkqPNPXKOMOK4240-31-10 06:27:00 Test Item Value Reference Range Interpretation Comments pCO2 Justin (test code = pCO2 Justin) 65 38-52 [facility] HospitalGxcpeelAXPSKLBND6328-30-00 06:27:00 Test Item Value Reference Range Interpretation Comments pO2 Justin (test code = pO2 Justin) 37 20-49 [facility] HospitalQqxyflnKQDZVFFSZ4126-57-25 06:27:00 Test Item Value Reference Range Interpretation Comments HCO3 Justin (test code = HCO3 Justin) 31 22-26 [facility] CenterZwjxlyvYPVDGCAYA8122-95-84 06:27:00 Test Item Value Reference Range Interpretation Comments BE Justin (test code = BE Justin) 3 -2-2 [facility] CenterXsualpgLSEQOXYZJ2569-69-21 06:27:00 Test Item Value Reference Range Interpretation Comments O2 Sat Justin (calc) (test code = O2 Sat 63.0 40.0-70.0 Justin (calc)) [facility] CenterNwmexnrYGAWAPVZL1403-93-41 06:27:00 Test Item Value Reference Range Interpretation Comments Temp Justin (test code = Temp Justin) 37.0 [facility] CenterBbbklntUUZOZDXEK5159-05-60 06:27:00 Test Item Value Reference Range Interpretation Comments Lactic Acid Lvl (test code = Lactic 0.5 0.5-2.2 Acid Lvl) [facility] CenterCkmzajuXVZIVIQKD4350-74-67 06:27:00 Test Item Value Reference Range Interpretation Comments TSH (test code = TSH) 0.403 0.360-3.740 [facility] HospitalKqaklvhPHVXFABDWT2970-20-60 06:27:00 Test Item Value Reference Range Interpretation Comments WBC X 10x3 (test code = WBC X 10x3) 5.9 3.7-10.4 [facility] HospitalOvtqhhrCHVJMGJJCU5063-53-00 06:27:00 Test Item Value Reference Range Interpretation Comments RBC X 10x6 (test code = RBC X 10x6) 3.67 4.20-5.40 [facility] HospitalCyzmbilDDKUFYFHTJ9440-72-67 06:27:00 Test Item Value Reference Range Interpretation Comments Hgb (test code = Hgb) 10.7 12.0-16.0 [facility] HospitalPajgbqeSRFVRIJMCT5727-66-62 06:27:00 Test Item Value Reference Range Interpretation Comments Hct (test code = Hct) 33.5 36.0-48.0 [place] 638193-02-27 06:27:00 Test Item Value Reference Range Interpretation Comments MCV (test code = MCV) 91.4 80.0-98.0 [place] 638193-02-27 06:27:00 Test Item Value Reference Range Interpretation Comments MCH (test code = MCH) 29.3 pg 27.0-31.0 [facility] HospitalKobvvlhSOWCNXQBVP1439-97-02 06:27:00 Test Item Value Reference Range Interpretation Comments MCHC (test code = MCHC) 32.0 32.0-36.0 [place] 638193-02-27 06:27:00 Test Item Value Reference Range Interpretation Comments RDW (test code = RDW) 13.7 11.5-14.5 [place] 638193-02-27 06:27:00 Test Item Value Reference Range Interpretation Comments Platelet (test code = Platelet) 139 133-450 [place] 638193-02-27 06:27:00 Test Item Value Reference Range Interpretation Comments MPV (test code = MPV) 7.5 7.4-10.4 [place] 638193-02-27 06:27:00 Test Item Value Reference Range Interpretation Comments ACT (TEG) Rapid (test code = ACT (TEG) 121 s 86-118 Rapid) [place] 638193-02-27 06:27:00 Test Item Value Reference Range Interpretation Comments Split Point Rapid (test code = Split 0.6 min Point Rapid) [place] 638193-02-27 06:27:00 Test Item Value Reference Range Interpretation Comments R-time Rapid (test code = R-time 0.8 min 0.4-0.7 Rapid) [place] 638193-02-27 06:27:00 Test Item Value Reference Range Interpretation Comments K-time Rapid (test code = K-time 0.8 min 0.6-2.3 Rapid) [place] 638193-02-27 06:27:00 Test Item Value Reference Range Interpretation Comments Angle Rapid (test code = Angle 79 degrees 64-80 Rapid) [place] 638193-02-27 06:27:00 Test Item Value Reference Range Interpretation Comments Max Amplitude Rapid (test code = Max 71 mm 52-71 Amplitude Rapid) [place] 638193-02-27 06:27:00 Test Item Value Reference Range Interpretation Comments G-value Rapid (test code = G-value 12.1 5.0-11.6 Rapid) [place] 638193-02-27 06:27:00 Test Item Value Reference Range Interpretation Comments Estimated % Lysis Rapid 0.0 See_Comment [Au tomated message] The (test code = Estimated syste m which generated % Lysis Rapid) this result t ransmitted reference range : <=7.5. The reference r christiano was not used to int erpret this result as normal/abnormal . [facility] HospitalPppqjivYIOHTOXXUP3287-87-12 06:27:00 Test Item Value Reference Range Interpretation Comments RBC Morph (test code = Normal (11/27/22 12:27 RBC Morph) AM) [facility] HospitalZcxedvqKNVXVGRVMP4718-32-99 06:27:00 Test Item Value Reference Range Interpretation Comments Plt Morph (test code = Normal (11/27/22 12:27 Plt Morph) AM) [facility] HospitalBvtwammNKQSYRDNUD3703-70-99 06:27:00 Test Item Value Reference Range Interpretation Comments Segs (test code = Segs) 60.1 45.0-75.0 [place] 638193-02-27:27:00 Test Item Value Reference Range Interpretation Comments Lymphocytes (test code = Lymphocytes) 23.9 20.0-40.0 [facility] HospitalNanasawVOEAQIYJQK6021-48-79 06:27:00 Test Item Value Reference Range Interpretation Comments Monocytes (test code = Monocytes) 9.6 2.0-12.0 [facility] HospitalJawxzpjLOKAFCKYKJ9192-31-33 06:27:00 Test Item Value Reference Range Interpretation Comments Eosinophils (test code = 5.2 See_Comment [A utomated message] The Eosinophils) system which ge nerated this result tra nsmitted reference range : <=4.0. The reference r christiano was not used to int erpret this result as normal/abnormal . [facility] HospitalTqsjpwsEAYLVPOZAJ7450-59-44 06:27:00 Test Item Value Reference Range Interpretation Comments Basophils (test code = 1.2 See_Comment [Aut omated message] The Basophils) system which ge nerated this result tra nsmitted reference range : <=1.0. The reference r christiano was not used to int erpret this result as normal/abnormal . [facility] HospitalOoztoaxOAVDERUBTS4923-26-89 06:27:00 Test Item Value Reference Range Interpretation Comments Neutrophils # (test code = Neutrophils 3.5 1.5-8.1 #) [place] 638193-02-27 06:27:00 Test Item Value Reference Range Interpretation Comments Lymphocytes # (test code = Lymphocytes 1.4 1.0-5.5 #) [place] 638193-02-27 06:27:00 Test Item Value Reference Range Interpretation Comments Monocytes # (test code 0.6 See_Comment [Aut omated message] The = Monocytes #) system which generated this result tra nsmitted reference range : <=0.8. The reference r christiano was not used to int erpret this result as normal/abnormal . [facility] HospitalKofcsmvCVGUISIWOS7481-86-55 06:27:00 Test Item Value Reference Range Interpretation Comments Eosinophils # (test code 0.3 See_Comment [A utomated message] The = Eosinophils #) system whic h generated this result tra nsmitted reference range : <=0.5. The reference r christiano was not used to int erpret this result as normal/abnormal . [facility] HospitalRvposuiXFWVWHBDSO6503-84-56 06:27:00 Test Item Value Reference Range Interpretation Comments Basophils # (test code 0.1 See_Comment [Aut omated message] The = Basophils #) system which generated this result tra nsmitted reference range : <=0.2. The reference r christiano was not used to int erpret this result as normal/abnormal . [facility] HospitalTvwjdbpDTLMMUBDWF7064-08-76 06:27:00 Test Item Value Reference Range Interpretation Comments ACT (TEG) Rapid (test code = ACT (TEG) 121 s 86-118 Rapid) [place] 638193-02-27 06:27:00 Test Item Value Reference Range Interpretation Comments Split Point Rapid (test code = Split 0.6 min Point Rapid) [place] 638193-02-27 06:27:00 Test Item Value Reference Range Interpretation Comments R-time Rapid (test code = R-time 0.8 min 0.4-0.7 Rapid) [place] 638193-02-27 06:27:00 Test Item Value Reference Range Interpretation Comments K-time Rapid (test code = K-time 0.8 min 0.6-2.3 Rapid) [place] [address]-02-27 06:27:00 Test Item Value Reference Range Interpretation Comments Angle Rapid (test code = Angle 79 degrees 64-80 Rapid) [facility] HospitalQfuvmhvBNOGNHRKTQ6875-77-21 06:27:00 Test Item Value Reference Range Interpretation Comments Max Amplitude Rapid (test code = Max 71 mm 52-71 Amplitude Rapid) [place] 638193-02-27 06:27:00 Test Item Value Reference Range Interpretation Comments G-value Rapid (test code = G-value 12.1 5.0-11.6 Rapid) [facility] HospitalIrrciksZFLYPBYAVP2972-15-39 06:27:00 Test Item Value Reference Range Interpretation Comments Estimated % Lysis Rapid 0.0 See_Comment [Au tomated message] The (test code = Estimated syste m which generated % Lysis Rapid) this result t ransmitted reference range : <=7.5. The reference r christiano was not used to int erpret this result as normal/abnormal . [facility] HospitalAxmgcmwVJEDRVIKGB1851-83-82 06:27:00 Test Item Value Reference Range Interpretation Comments RBC Morph (test code = Normal (11/27/22 12:27 RBC Morph) AM) [facility] HospitalOwodmkaHUIQVHKVVA5315-34-43 06:27:00 Test Item Value Reference Range Interpretation Comments Plt Morph (test code = Normal (11/27/22 12:27 Plt Morph) AM) [facility]SuhwavtXRUPKRMXZJ3116-98-98 06:27:00 Test Item Value Reference Range Interpretation Comments Basophils # (test code 0.1 See_Comment [Aut omated message] The = Basophils #) system which generated this result tra nsmitted reference range : <=0.2. The reference r christiano was not used to int erpret this result as normal/abnormal . [facility]IekzqgxIOSTHSFMF6814-89-20 13:17:00 Test Item Value Reference Range Interpretation Comments Glucose Lvl (test code = Glucose Lvl) 65 70-99 [facility] CenterOctorheVFSUEJYJI5588-78-96 13:17:00 Test Item Value Reference Range Interpretation Comments BUN (test code = BUN) 39 7-22 [facility] CenterUxjihhuNGOSLRTPY4083-51-97 13:17:00 Test Item Value Reference Range Interpretation Comments Creatinine Lvl (test code = Creatinine 2.03 0.50-1.40 Lvl) [facility] CenterOyjfpgoNVLSPSLLO7600-56-69 13:17:00 Test Item Value Reference Range Interpretation Comments Sodium Lvl (test code = Sodium Lvl) 139 135-145 [facility] CenterBsatqihPMTILQPBZ1992-60-82 13:17:00 Test Item Value Reference Range Interpretation Comments Potassium Lvl (test code = Potassium 4.7 3.5-5.1 Lvl) [facility] CenterYgctbboZAYJFVVAY5562-47-53 13:17:00 Test Item Value Reference Range Interpretation Comments Chloride Lvl (test code = Chloride Lvl) 107 95-109 [facility] CenterLxmhgevETHUWPPUP9920-79-21 13:17:00 Test Item Value Reference Range Interpretation Comments CO2 (test code = CO2) 26 24-32 [facility] CenterPpsfzlfZAGJCPSQF5105-43-78 13:17:00 Test Item Value Reference Range Interpretation Comments Calcium Lvl (test code = Calcium Lvl) 8.1 8.5-10.5 [facility] CenterSkxojzjOSNQAIHLS1566-38-28 13:17:00 Test Item Value Reference Range Interpretation Comments AGAP (test code = AGAP) 10.7 10.0-20.0 [facility] CenterZuyobrtVPURNLGYG9515-71-34 13:17:00 Test Item Value Reference Range Interpretation Comments eGFR (test code = eGFR) 24 [facility] CenterMtwxksvHKLUTWZNE3638-57-42 13:17:00 Test Item Value Reference Range Interpretation Comments Ca Ion WB (test code = Ca Ion WB) 1.06 1.05-1.25 [facility] CenterRpxbbsvCNSXUSYBH3663-07-41 13:17:00 Test Item Value Reference Range Interpretation Comments Ca Ion at pH 7.4 WB (test code = Ca Ion 1.03 1.05-1.25 at pH 7.4 WB) [facility] CenterDysnaquGUBTQBLHN1348-71-32 13:17:00 Test Item Value Reference Range Interpretation Comments Magnesium Lvl (test code = Magnesium 2.7 1.8-2.4 Lvl) [facility] CenterJcmsteuISXESPYDZ2666-11-58 13:17:00 Test Item Value Reference Range Interpretation Comments Phosphorus (test code = Phosphorus) 3.9 2.5-4.5 [facility] HospitalVjllzjdIPJHLTYJCZ2932-05-00 13:17:00 Test Item Value Reference Range Interpretation Comments Segs (test code = Segs) 54.4 45.0-75.0 [place] 638193-02-22 13:17:00 Test Item Value Reference Range Interpretation Comments Lymphocytes (test code = Lymphocytes) 29.3 20.0-40.0 [place] 638193-02-22 13:17:00 Test Item Value Reference Range Interpretation Comments Monocytes (test code = Monocytes) 10.5 2.0-12.0 [place] 638193-02-22 13:17:00 Test Item Value Reference Range Interpretation Comments Eosinophils (test code = 5.0 See_Comment [A utomated message] The Eosinophils) system which ge nerated this result tra nsmitted reference range : <=4.0. The reference r christiano was not used to int erpret this result as normal/abnormal . [place] 638193-02-22 13:17:00 Test Item Value Reference Range Interpretation Comments Basophils (test code = 0.8 See_Comment [Aut omated message] The Basophils) system which ge nerated this result tra nsmitted reference range : <=1.0. The reference r christiano was not used to int erpret this result as normal/abnormal . [place] 638193-02-22 13:17:00 Test Item Value Reference Range Interpretation Comments Neutrophils # (test code = Neutrophils 4.1 1.5-8.1 #) [place] 638193-02-22 13:17:00 Test Item Value Reference Range Interpretation Comments Lymphocytes # (test code = Lymphocytes 2.2 1.0-5.5 #) [place] [address]-02-22 13:17:00 Test Item Value Reference Range Interpretation Comments Monocytes # (test code 0.8 See_Comment [Aut omated message] The = Monocytes #) system which generated this result tra nsmitted reference range : <=0.8. The reference r christiano was not used to int erpret this result as normal/abnormal . [place] 638193-02-22 13:17:00 Test Item Value Reference Range Interpretation Comments Eosinophils # (test code 0.4 See_Comment [A utomated message] The = Eosinophils #) system [facility] generated this result tra nsmitted reference range : <=0.5. The reference r christiano was not used to int erpret this result as normal/abnormal . [place] 638193-02-22 13:17:00 Test Item Value Reference Range Interpretation Comments Basophils # (test code 0.1 See_Comment [Aut omated message] The = Basophils #) system which generated this result tra nsmitted reference range : <=0.2. The reference r christiano was not used to int erpret this result as normal/abnormal . [place] 638193-02-22 13:17:00 Test Item Value Reference Range Interpretation Comments WBC (test code = WBC) 7.5 3.7-10.4 [facility] HospitalJhvblvsSNEUUCNFDN3238-78-78 13:17:00 Test Item Value Reference Range Interpretation Comments RBC (test code = RBC) 3.30 4.20-5.40 [place] 638193-02-22 13:17:00 Test Item Value Reference Range Interpretation Comments Hgb (test code = Hgb) 9.9 12.0-16.0 [place] 638193-02-22 13:17:00 Test Item Value Reference Range Interpretation Comments Hct (test code = Hct) 30.3 36.0-48.0 [facility] HospitalWersjhuIMRYOTTFFO4743-55-50 13:17:00 Test Item Value Reference Range Interpretation Comments MCV (test code = MCV) 91.8 80.0-98.0 [place] 638193-02-22 13:17:00 Test Item Value Reference Range Interpretation Comments MCH (test code = MCH) 30.0 pg 27.0-31.0 [facility] HospitalTrqagitWDVAQBATDU3151-85-78 13:17:00 Test Item Value Reference Range Interpretation Comments MCHC (test code = MCHC) 32.7 32.0-36.0 [facility] HospitalSnzfersNWCHUTASIW5755-80-37 13:17:00 Test Item Value Reference Range Interpretation Comments RDW (test code = RDW) 14.4 11.5-14.5 [facility] HospitalKjpxicuSGMOILRBXT0724-64-58 13:17:00 Test Item Value Reference Range Interpretation Comments Platelet (test code = Platelet) 136 133-450 [facility] HospitalAdidemwOLXTADDTSC3372-71-67 13:17:00 Test Item Value Reference Range Interpretation Comments MPV (test code = MPV) 8.7 7.4-10.4 [facility] CenterOmuciduBHKRJTYNL1024-26-81 13:17:00 Test Item Value Reference Range Interpretation Comments Glucose Lvl (test code = Glucose Lvl) 65 70-99 [facility] CenterLxijdytDNWBRHOYB5808-55-68 13:17:00 Test Item Value Reference Range Interpretation Comments BUN (test code = BUN) 39 7-22 [place] 711743-02-22 13:17:00 Test Item Value Reference Range Interpretation Comments Creatinine Lvl (test code = Creatinine 2.03 0.50-1.40 Lvl) [facility] CenterGdwxsshAQBZXOWMM1208-00-73 13:17:00 Test Item Value Reference Range Interpretation Comments Sodium Lvl (test code = Sodium Lvl) 139 135-145 [place] 711743-02-22 13:17:00 Test Item Value Reference Range Interpretation Comments Potassium Lvl (test code = Potassium 4.7 3.5-5.1 Lvl) [facility] CenterUgnzkteLTBPWPLNC7512-97-31 13:17:00 Test Item Value Reference Range Interpretation Comments Chloride Lvl (test code = Chloride Lvl) 107 95-109 [place] 711743-02-22 13:17:00 Test Item Value Reference Range Interpretation Comments CO2 (test code = CO2) 26 24-32 [facility] CenterNoiahcfFWFMFCTMB9119-89-51 13:17:00 Test Item Value Reference Range Interpretation Comments Calcium Lvl (test code = Calcium Lvl) 8.1 8.5-10.5 [place] 711743-02-22 13:17:00 Test Item Value Reference Range Interpretation Comments AGAP (test code = AGAP) 10.7 10.0-20.0 [facility] CenterAxlnpvsJTNNDIGTV3001-06-86 13:17:00 Test Item Value Reference Range Interpretation Comments eGFR (test code = eGFR) 24 [facility] CenterCxqazawOLDXVMILH9220-34-98 13:17:00 Test Item Value Reference Range Interpretation Comments Ca Ion WB (test code = Ca Ion WB) 1.06 1.05-1.25 [facility] CenterKqgxcqcVJKCWMYQV1176-51-22 13:17:00 Test Item Value Reference Range Interpretation Comments Ca Ion at pH 7.4 WB (test code = Ca Ion 1.03 1.05-1.25 at pH 7.4 WB) [facility] CenterHhgwgilCMWIBRWRC1838-60-94 13:17:00 Test Item Value Reference Range Interpretation Comments Magnesium Lvl (test code = Magnesium 2.7 1.8-2.4 Lvl) [facility] CenterOffnkplGIDBFWBPM2740-06-24 13:17:00 Test Item Value Reference Range Interpretation Comments Phosphorus (test code = Phosphorus) 3.9 2.5-4.5 [place] 638193-02-22 13:17:00 Test Item Value Reference Range Interpretation Comments Segs (test code = Segs) 54.4 45.0-75.0 [place] 638193-02-22 13:17:00 Test Item Value Reference Range Interpretation Comments Lymphocytes (test code = Lymphocytes) 29.3 20.0-40.0 [place] 638193-02-22 13:17:00 Test Item Value Reference Range Interpretation Comments Monocytes (test code = Monocytes) 10.5 2.0-12.0 [facility] HospitalTcliygaMKSIJDCQHA4682-35-45 13:17:00 Test Item Value Reference Range Interpretation Comments Eosinophils (test code = 5.0 See_Comment [A utomated message] The Eosinophils) system which ge nerated this result tra nsmitted reference range : <=4.0. The reference r christiano was not used to int erpret this result as normal/abnormal . [facility] HospitalRmffvjaLQGGVBKPRN7065-91-64 13:17:00 Test Item Value Reference Range Interpretation Comments Basophils (test code = 0.8 See_Comment [Aut omated message] The Basophils) system which ge nerated this result tra nsmitted reference range : <=1.0. The reference r christiano was not used to int erpret this result as normal/abnormal . [facility] HospitalPunbjasLSLHSFXRGA7756-80-14 13:17:00 Test Item Value Reference Range Interpretation Comments Neutrophils # (test code = Neutrophils 4.1 1.5-8.1 #) [facility] HospitalLrioukgUXWCGGMWOZ6489-06-78 13:17:00 Test Item Value Reference Range Interpretation Comments Lymphocytes # (test code = Lymphocytes 2.2 1.0-5.5 #) [facility] HospitalUnqjdpyLXIBHVHNNO2458-45-04 13:17:00 Test Item Value Reference Range Interpretation Comments Monocytes # (test code 0.8 See_Comment [Aut omated message] The = Monocytes #) system which generated this result tra nsmitted reference range : <=0.8. The reference r christiano was not used to int erpret this result as normal/abnormal . [facility] HospitalTmtgmcqBECKJHKOZO4497-91-05 13:17:00 Test Item Value Reference Range Interpretation Comments Eosinophils # (test code 0.4 See_Comment [A utomated message] The = Eosinophils #) system whic h generated this result tra nsmitted reference range : <=0.5. The reference r christiano was not used to int erpret this result as normal/abnormal . [facility] HospitalQzfftnlUYIEBXKGYX1064-61-39 13:17:00 Test Item Value Reference Range Interpretation Comments Basophils # (test code 0.1 See_Comment [Aut omated message] The = Basophils #) system which generated this result tra nsmitted reference range : <=0.2. The reference r christiano was not used to int erpret this result as normal/abnormal . [facility] HospitalUdhosjhOIZCSJRWGY0743-86-98 13:17:00 Test Item Value Reference Range Interpretation Comments WBC (test code = WBC) 7.5 3.7-10.4 [facility] HospitalNgimczyTXZMZJPZUB7220-43-33 13:17:00 Test Item Value Reference Range Interpretation Comments RBC (test code = RBC) 3.30 4.20-5.40 [facility] HospitalPtunzncGQJWHRVVFT8009-43-32 13:17:00 Test Item Value Reference Range Interpretation Comments Hgb (test code = Hgb) 9.9 12.0-16.0 [facility] HospitalPwvbdhtVANYPSVYHQ0620-16-90 13:17:00 Test Item Value Reference Range Interpretation Comments Hct (test code = Hct) 30.3 36.0-48.0 [facility] HospitalPmswbalNPRWXNUYTH9441-25-51 13:17:00 Test Item Value Reference Range Interpretation Comments MCV (test code = MCV) 91.8 80.0-98.0 [facility] HospitalJthmznpVDKBIROFDB3405-71-08 13:17:00 Test Item Value Reference Range Interpretation Comments MCH (test code = MCH) 30.0 pg 27.0-31.0 [facility] HospitalPhntzvjJQUHWXFFUX0717-23-45 13:17:00 Test Item Value Reference Range Interpretation Comments MCHC (test code = MCHC) 32.7 32.0-36.0 [facility] HospitalLmnbsogDTBOAILMQZ4556-85-97 13:17:00 Test Item Value Reference Range Interpretation Comments RDW (test code = RDW) 14.4 11.5-14.5 [facility] HospitalBzleyvyBPRAFRZTZT9680-41-32 13:17:00 Test Item Value Reference Range Interpretation Comments Platelet (test code = Platelet) 136 133-450 [facility] HospitalPzcknkwNFMLTWOXNX7400-98-55 13:17:00 Test Item Value Reference Range Interpretation Comments MPV (test code = MPV) 8.7 7.4-10.4 [facility]2023-02-22 13:17:00 Test Item Value Reference Range Interpretation Comments Glucose Lvl (test code = Glucose Lvl) 65 70-99 [place] 218493-02-22 13:17:00 Test Item Value Reference Range Interpretation Comments BUN (test code = BUN) 39 7-22 [place] 218493-02-22 13:17:00 Test Item Value Reference Range Interpretation Comments Creatinine Lvl (test code = Creatinine 2.03 0.50-1.40 Lvl) [facility]2023-02-22 13:17:00 Test Item Value Reference Range Interpretation Comments Sodium Lvl (test code = Sodium Lvl) 139 135-145 [place] 218493-02-22 13:17:00 Test Item Value Reference Range Interpretation Comments Potassium Lvl (test code = Potassium 4.7 3.5-5.1 Lvl) [place] 218493-02-22 13:17:00 Test Item Value Reference Range Interpretation Comments Chloride Lvl (test code = Chloride Lvl) 107 95-109 [facility]2023-02-22 13:17:00 Test Item Value Reference Range Interpretation Comments CO2 (test code = CO2) 26 24-32 [place] 218493-02-22 13:17:00 Test Item Value Reference Range Interpretation Comments Calcium Lvl (test code = Calcium Lvl) 8.1 8.5-10.5 [place] 218493-02-22 13:17:00 Test Item Value Reference Range Interpretation Comments AGAP (test code = AGAP) 10.7 10.0-20.0 [facility]2023-02-22 13:17:00 Test Item Value Reference Range Interpretation Comments eGFR (test code = eGFR) 24 [place] 218493-02-22 13:17:00 Test Item Value Reference Range Interpretation Comments Magnesium Lvl (test code = Magnesium 2.7 1.8-2.4 Lvl) [facility]2023-02-22 13:17:00 Test Item Value Reference Range Interpretation Comments Phosphorus (test code = Phosphorus) 3.9 2.5-4.5 [place] 711743-02-22 13:17:00 Test Item Value Reference Range Interpretation Comments Glucose Lvl (test code = Glucose Lvl) 65 70-99 [place] 711743-02-22 13:17:00 Test Item Value Reference Range Interpretation Comments BUN (test code = BUN) 39 7-22 [facility] CenterCxnmlinBAQPPKFAG8226-85-28 13:17:00 Test Item Value Reference Range Interpretation Comments Creatinine Lvl (test code = Creatinine 2.03 0.50-1.40 Lvl) [facility] CenterYqhjmidPKYOQPWGS0759-20-33 13:17:00 Test Item Value Reference Range Interpretation Comments Sodium Lvl (test code = Sodium Lvl) 139 135-145 [place] 711743-02-22 13:17:00 Test Item Value Reference Range Interpretation Comments Potassium Lvl (test code = Potassium 4.7 3.5-5.1 Lvl) [facility] CenterJbiibcpLTOPWZRTI6662-18-21 13:17:00 Test Item Value Reference Range Interpretation Comments Chloride Lvl (test code = Chloride Lvl) 107 95-109 [facility] CenterHhhnkcjCSFSSLPPB6019-37-77 13:17:00 Test Item Value Reference Range Interpretation Comments CO2 (test code = CO2) 26 24-32 [facility] CenterKwpcstjDIJYYBCQO1012-47-98 13:17:00 Test Item Value Reference Range Interpretation Comments Calcium Lvl (test code = Calcium Lvl) 8.1 8.5-10.5 [facility] CenterFgtgtbnMHGJJPYKN6731-70-43 13:17:00 Test Item Value Reference Range Interpretation Comments AGAP (test code = AGAP) 10.7 10.0-20.0 [facility] CenterBnqffqiNFHBDZLRD0127-23-03 13:17:00 Test Item Value Reference Range Interpretation Comments eGFR (test code = eGFR) 24 [facility] CenterWvskvbjRWJBGSHRU7281-80-61 13:17:00 Test Item Value Reference Range Interpretation Comments Ca Ion WB (test code = Ca Ion WB) 1.06 1.05-1.25 [facility] CenterPwuywlrGOICEESDI7084-11-32 13:17:00 Test Item Value Reference Range Interpretation Comments Ca Ion at pH 7.4 WB (test code = Ca Ion 1.03 1.05-1.25 at pH 7.4 WB) [facility] CenterLsqlmstWTBNAFBGS5608-50-25 13:17:00 Test Item Value Reference Range Interpretation Comments Magnesium Lvl (test code = Magnesium 2.7 1.8-2.4 Lvl) [facility] CenterTujvpqmTSGTMTHGW6311-78-76 13:17:00 Test Item Value Reference Range Interpretation Comments Phosphorus (test code = Phosphorus) 3.9 2.5-4.5 [place] 638193-02-22 13:17:00 Test Item Value Reference Range Interpretation Comments Segs (test code = Segs) 54.4 45.0-75.0 [place] 638193-02-22 13:17:00 Test Item Value Reference Range Interpretation Comments Lymphocytes (test code = Lymphocytes) 29.3 20.0-40.0 [place] [address]-02-22 13:17:00 Test Item Value Reference Range Interpretation Comments Monocytes (test code = Monocytes) 10.5 2.0-12.0 [place] [address]-02-22 13:17:00 Test Item Value Reference Range Interpretation Comments Eosinophils (test code = 5.0 See_Comment [A utomated message] The Eosinophils) system which ge nerated this result tra nsmitted reference range : <=4.0. The reference r christiano was not used to int erpret this result as normal/abnormal . [place] 638193-02-22 13:17:00 Test Item Value Reference Range Interpretation Comments Basophils (test code = 0.8 See_Comment [Aut omated message] The Basophils) system which ge nerated this result tra nsmitted reference range : <=1.0. The reference r christiano was not used to int erpret this result as normal/abnormal . [place] 638193-02-22 13:17:00 Test Item Value Reference Range Interpretation Comments Neutrophils # (test code = Neutrophils 4.1 1.5-8.1 #) [place] 638193-02-22 13:17:00 Test Item Value Reference Range Interpretation Comments Lymphocytes # (test code = Lymphocytes 2.2 1.0-5.5 #) [place] 638193-02-22 13:17:00 Test Item Value Reference Range Interpretation Comments Monocytes # (test code 0.8 See_Comment [Aut omated message] The = Monocytes #) system which generated this result tra nsmitted reference range : <=0.8. The reference r christiano was not used to int erpret this result as normal/abnormal . [place] 638193-02-22 13:17:00 Test Item Value Reference Range Interpretation Comments Eosinophils # (test code 0.4 See_Comment [A utomated message] The = Eosinophils #) system whic h generated this result tra nsmitted reference range : <=0.5. The reference r christiaon was not used to int erpret this result as normal/abnormal . [facility] HospitalAourjvcDZLMVEVZAM1634-04-61 13:17:00 Test Item Value Reference Range Interpretation Comments Basophils # (test code 0.1 See_Comment [Aut omated message] The = Basophils #) system which generated this result tra nsmitted reference range : <=0.2. The reference r christiano was not used to int erpret this result as normal/abnormal . [facility] HospitalYfkcdzpLVYQSRENUI6767-65-91 13:17:00 Test Item Value Reference Range Interpretation Comments WBC (test code = WBC) 7.5 3.7-10.4 [place] 638193-02-22 13:17:00 Test Item Value Reference Range Interpretation Comments RBC (test code = RBC) 3.30 4.20-5.40 [place] 638193-02-22 13:17:00 Test Item Value Reference Range Interpretation Comments Hgb (test code = Hgb) 9.9 12.0-16.0 [facility] HospitalCmorafhUNMHPFFYBL4284-93-63 13:17:00 Test Item Value Reference Range Interpretation Comments Hct (test code = Hct) 30.3 36.0-48.0 [facility] HospitalJmxvsmgZXSVEMCPWG0659-23-51 13:17:00 Test Item Value Reference Range Interpretation Comments MCV (test code = MCV) 91.8 80.0-98.0 [place] 638193-02-22 13:17:00 Test Item Value Reference Range Interpretation Comments MCH (test code = MCH) 30.0 pg 27.0-31.0 [place] 638193-02-22 13:17:00 Test Item Value Reference Range Interpretation Comments MCHC (test code = MCHC) 32.7 32.0-36.0 [place] 638193-02-22 13:17:00 Test Item Value Reference Range Interpretation Comments RDW (test code = RDW) 14.4 11.5-14.5 [place] 638193-02-22 13:17:00 Test Item Value Reference Range Interpretation Comments Platelet (test code = Platelet) 136 133-450 [facility] HospitalGslmaxvPEONPGQRTF8435-16-90 13:17:00 Test Item Value Reference Range Interpretation Comments MPV (test code = MPV) 8.7 7.4-10.4 [place] 638193-02-22 13:17:00 Test Item Value Reference Range Interpretation Comments Segs (test code = Segs) 54.4 45.0-75.0 [place] 638193-02-22 13:17:00 Test Item Value Reference Range Interpretation Comments Lymphocytes (test code = Lymphocytes) 29.3 20.0-40.0 [place] 638193-02-22 13:17:00 Test Item Value Reference Range Interpretation Comments Monocytes (test code = Monocytes) 10.5 2.0-12.0 [place] 638193-02-22 13:17:00 Test Item Value Reference Range Interpretation Comments Eosinophils (test code = 5.0 See_Comment [A utomated message] The Eosinophils) system which ge nerated this result tra nsmitted reference range : <=4.0. The reference r christiano was not used to int erpret this result as normal/abnormal . [place] 638193-02-22 13:17:00 Test Item Value Reference Range Interpretation Comments Basophils (test code = 0.8 See_Comment [Aut omated message] The Basophils) system which ge nerated this result tra nsmitted reference range : <=1.0. The reference r christiano was not used to int erpret this result as normal/abnormal . [facility] HospitalPtmxmgrTUPGGUKIMB5537-35-79 13:17:00 Test Item Value Reference Range Interpretation Comments Neutrophils # (test code = Neutrophils 4.1 1.5-8.1 #) [place] 638193-02-22 13:17:00 Test Item Value Reference Range Interpretation Comments Lymphocytes # (test code = Lymphocytes 2.2 1.0-5.5 #) [place] 638193-02-22 13:17:00 Test Item Value Reference Range Interpretation Comments Monocytes # (test code 0.8 See_Comment [Aut omated message] The = Monocytes #) system which generated this result tra nsmitted reference range : <=0.8. The reference r christiano was not used to int erpret this result as normal/abnormal . [place] 638193-02-22 13:17:00 Test Item Value Reference Range Interpretation Comments Eosinophils # (test code 0.4 See_Comment [A utomated message] The = Eosinophils #) system whic h generated this result tra nsmitted reference range : <=0.5. The reference r christiano was not used to int erpret this result as normal/abnormal . [facility] HospitalVlrucftQTPVYHUANG3960-04-89 13:17:00 Test Item Value Reference Range Interpretation Comments Basophils # (test code 0.1 See_Comment [Aut omated message] The = Basophils #) system which generated this result tra nsmitted reference range : <=0.2. The reference r christiano was not used to int erpret this result as normal/abnormal . [facility] HospitalLdawykpYSLIENQMTC8477-57-12 13:17:00 Test Item Value Reference Range Interpretation Comments WBC (test code = WBC) 7.5 3.7-10.4 [facility] HospitalCgzcvmlYVXJERMTOX0034-25-66 13:17:00 Test Item Value Reference Range Interpretation Comments RBC (test code = RBC) 3.30 4.20-5.40 [facility] HospitalUxxxvpjXKNFQRJKOS2992-66-89 13:17:00 Test Item Value Reference Range Interpretation Comments Hgb (test code = Hgb) 9.9 12.0-16.0 [facility] HospitalFtvurdxVPILROYOFZ3448-39-23 13:17:00 Test Item Value Reference Range Interpretation Comments Hct (test code = Hct) 30.3 36.0-48.0 [facility] HospitalXeyoaczAYFONQVOVB9570-52-10 13:17:00 Test Item Value Reference Range Interpretation Comments MCV (test code = MCV) 91.8 80.0-98.0 [facility]PrrxerjKOGVVMXNAD7827-63-81 13:17:00 Test Item Value Reference Range Interpretation Comments MCH (test code = MCH) 30.0 pg 27.0-31.0 [place] 638193-02-22 13:17:00 Test Item Value Reference Range Interpretation Comments MCHC (test code = MCHC) 32.7 32.0-36.0 [facility] HospitalFvsyabeFBUDSZKWMJ7161-25-93 13:17:00 Test Item Value Reference Range Interpretation Comments RDW (test code = RDW) 14.4 11.5-14.5 [facility] HospitalLhfdqflWKICYBKCSM5963-25-46 13:17:00 Test Item Value Reference Range Interpretation Comments Platelet (test code = Platelet) 136 133-450 [facility] HospitalBqecozzMHQIRLMZHR1633-62-40 13:17:00 Test Item Value Reference Range Interpretation [...] Ion 1.03 1.05-1.25 at pH 7.4 WB) [facility]2023-02-22 13:17:00 Test Item Value Reference Range Interpretation Comments Glucose Lvl (test code = Glucose Lvl) 65 70-99 [facility]2023-02-22 13:17:00 Test Item Value Reference Range Interpretation Comments BUN (test code = BUN) 39 7-22 [place] 218493-02-22 13:17:00 Test Item Value Reference Range Interpretation Comments Creatinine Lvl (test code = Creatinine 2.03 0.50-1.40 Lvl) [facility]2023-02-22 13:17:00 Test Item Value Reference Range Interpretation Comments Sodium Lvl (test code = Sodium Lvl) 139 135-145 [place] 218493-02-22 13:17:00 Test Item Value Reference Range Interpretation Comments Potassium Lvl (test code = Potassium 4.7 3.5-5.1 Lvl) [place] 218493-02-22 13:17:00 Test Item Value Reference Range Interpretation Comments Chloride Lvl (test code = Chloride Lvl) 107 95-109 [place] 218493-02-22 13:17:00 Test Item Value Reference Range Interpretation Comments CO2 (test code = CO2) 26 24-32 [facility]2023-02-22 13:17:00 Test Item Value Reference Range Interpretation Comments Calcium Lvl (test code = Calcium Lvl) 8.1 8.5-10.5 [place] 218493-02-22 13:17:00 Test Item Value Reference Range Interpretation Comments AGAP (test code = AGAP) 10.7 10.0-20.0 [place] 218493-02-22 13:17:00 Test Item Value Reference Range Interpretation Comments eGFR (test code = eGFR) 24 [place] 218493-02-22 13:17:00 Test Item Value Reference Range Interpretation Comments Magnesium Lvl (test code = Magnesium 2.7 1.8-2.4 Lvl) [place] 218493-02-22 13:17:00 Test Item Value Reference Range Interpretation Comments Phosphorus (test code = Phosphorus) 3.9 2.5-4.5 [place] 711743-02-22 13:17:00 Test Item Value Reference Range Interpretation Comments Glucose Lvl (test code = Glucose Lvl) 65 70-99 [place] [address]-02-22 13:17:00 Test Item Value Reference Range Interpretation Comments BUN (test code = BUN) 39 7-22 [facility]wwBNIHWGMSL6197-72-54 13:17:00 Test Item Value Reference Range Interpretation Comments Creatinine Lvl (test code = Creatinine 2.03 0.50-1.40 Lvl) [facility] CenterXmetoeiAFIHVZTRU2421-77-49 13:17:00 Test Item Value Reference Range Interpretation Comments Sodium Lvl (test code = Sodium Lvl) 139 135-145 [place] 711743-02-22 13:17:00 Test Item Value Reference Range Interpretation Comments Potassium Lvl (test code = Potassium 4.7 3.5-5.1 Lvl) [facility] CenterZxrfoxnCQRPTXOZP2508-19-79 13:17:00 Test Item Value Reference Range Interpretation Comments Chloride Lvl (test code = Chloride Lvl) 107 95-109 [place] 711743-02-22 13:17:00 Test Item Value Reference Range Interpretation Comments CO2 (test code = CO2) 26 24-32 [place] 711743-02-22 13:17:00 Test Item Value Reference Range Interpretation Comments Calcium Lvl (test code = Calcium Lvl) 8.1 8.5-10.5 [place] 711743-02-22 13:17:00 Test Item Value Reference Range Interpretation Comments AGAP (test code = AGAP) 10.7 10.0-20.0 [place] 711743-02-22 13:17:00 Test Item Value Reference Range Interpretation Comments eGFR (test code = eGFR) 24 [place] 711743-02-22 13:17:00 Test Item Value Reference Range Interpretation Comments Ca Ion WB (test code = Ca Ion WB) 1.06 1.05-1.25 [place] 711743-02-22 13:17:00 Test Item Value Reference Range Interpretation Comments Ca Ion at pH 7.4 WB (test code = Ca Ion 1.03 1.05-1.25 at pH 7.4 WB) [place] 711743-02-22 13:17:00 Test Item Value Reference Range Interpretation Comments Magnesium Lvl (test code = Magnesium 2.7 1.8-2.4 Lvl) [place] 711743-02-22 13:17:00 Test Item Value Reference Range Interpretation Comments Phosphorus (test code = Phosphorus) 3.9 2.5-4.5 [facility] HospitalGlmzswkMZVWXIMMHC4748-28-18 13:17:00 Test Item Value Reference Range Interpretation Comments Segs (test code = Segs) 54.4 45.0-75.0 [place] [address]-02-22 13:17:00 Test Item Value Reference Range Interpretation Comments Lymphocytes (test code = Lymphocytes) 29.3 20.0-40.0 [place] [address]-02-22 13:17:00 Test Item Value Reference Range Interpretation Comments Monocytes (test code = Monocytes) 10.5 2.0-12.0 [facility] HospitalPiyuburHTKTCJBJJS4351-56-84 13:17:00 Test Item Value Reference Range Interpretation Comments Eosinophils (test code = 5.0 See_Comment [A utomated message] The Eosinophils) system which ge nerated this result tra nsmitted reference range : <=4.0. The reference r christiano was not used to int erpret this result as normal/abnormal . [facility] HospitalDlndwtvBUGAKGTXPX3396-47-93 13:17:00 Test Item Value Reference Range Interpretation Comments Basophils (test code = 0.8 See_Comment [Aut omated message] The Basophils) system which ge nerated this result tra nsmitted reference range : <=1.0. The reference r christiano was not used to int erpret this result as normal/abnormal . [place] 638193-02-22 13:17:00 Test Item Value Reference Range Interpretation Comments Neutrophils # (test code = Neutrophils 4.1 1.5-8.1 #) [place] 638193-02-22 13:17:00 Test Item Value Reference Range Interpretation Comments Lymphocytes # (test code = Lymphocytes 2.2 1.0-5.5 #) [place] 638193-02-22 13:17:00 Test Item Value Reference Range Interpretation Comments Monocytes # (test code 0.8 See_Comment [Aut omated message] The = Monocytes #) system which generated this result tra nsmitted reference range : <=0.8. The reference r christiano was not used to int erpret this result as normal/abnormal . [place] 638193-02-22 13:17:00 Test Item Value Reference Range Interpretation Comments Eosinophils # (test code 0.4 See_Comment [A utomated message] The = Eosinophils #) system whic h generated this result tra nsmitted reference range : <=0.5. The reference r christiano was not used to int erpret this result as normal/abnormal . [place] 638193-02-22 13:17:00 Test Item Value Reference Range Interpretation Comments Basophils # (test code 0.1 See_Comment [Aut omated message] The = Basophils #) system which generated this result tra nsmitted reference range : <=0.2. The reference r christiano was not used to int erpret this result as normal/abnormal . [place] 638193-02-22 13:17:00 Test Item Value Reference Range Interpretation Comments WBC (test code = WBC) 7.5 3.7-10.4 [place] 638193-02-22 13:17:00 Test Item Value Reference Range Interpretation Comments RBC (test code = RBC) 3.30 4.20-5.40 [place] [address]-02-22 13:17:00 Test Item Value Reference Range Interpretation Comments Hgb (test code = Hgb) 9.9 12.0-16.0 [place] [address]-02-22 13:17:00 Test Item Value Reference Range Interpretation Comments Hct (test code = Hct) 30.3 36.0-48.0 [place] [address]-02-22 13:17:00 Test Item Value Reference Range Interpretation Comments MCV (test code = MCV) 91.8 80.0-98.0 [place] [address]-02-22 13:17:00 Test Item Value Reference Range Interpretation Comments MCH (test code = MCH) 30.0 pg 27.0-31.0 [place] 638193-02-22 13:17:00 Test Item Value Reference Range Interpretation Comments MCHC (test code = MCHC) 32.7 32.0-36.0 [place] 638193-02-22 13:17:00 Test Item Value Reference Range Interpretation Comments RDW (test code = RDW) 14.4 11.5-14.5 [place] 638193-02-22 13:17:00 Test Item Value Reference Range Interpretation Comments Platelet (test code = Platelet) 136 133-450 [place] 638193-02-22 13:17:00 Test Item Value Reference Range Interpretation Comments MPV (test code = MPV) 8.7 7.4-10.4 [place] 638193-02-22 13:17:00 Test Item Value Reference Range Interpretation Comments Segs (test code = Segs) 54.4 45.0-75.0 [facility] HospitalYwlycrpXZWYWUPFBP7821-92-54 13:17:00 Test Item Value Reference Range Interpretation Comments Lymphocytes (test code = Lymphocytes) 29.3 20.0-40.0 [place] 638193-02-22 13:17:00 Test Item Value Reference Range Interpretation Comments Monocytes (test code = Monocytes) 10.5 2.0-12.0 [place] 638193-02-22 13:17:00 Test Item Value Reference Range Interpretation Comments Eosinophils (test code = 5.0 See_Comment [A utomated message] The Eosinophils) system which ge nerated this result tra nsmitted reference range : <=4.0. The reference r christiano was not used to int erpret this result as normal/abnormal . [place] 638193-02-22 13:17:00 Test Item Value Reference Range Interpretation Comments Basophils (test code = 0.8 See_Comment [Aut omated message] The Basophils) system which ge nerated this result tra nsmitted reference range : <=1.0. The reference r christiano was not used to int erpret this result as normal/abnormal . [place] 638193-02-22 13:17:00 Test Item Value Reference Range Interpretation Comments Neutrophils # (test code = Neutrophils 4.1 1.5-8.1 #) [place] 638193-02-22 13:17:00 Test Item Value Reference Range Interpretation Comments Lymphocytes # (test code = Lymphocytes 2.2 1.0-5.5 #) [place] [address]-02-22 13:17:00 Test Item Value Reference Range Interpretation Comments Monocytes # (test code 0.8 See_Comment [Aut omated message] The = Monocytes #) system which generated this result tra nsmitted reference range : <=0.8. The reference r christiano was not used to int erpret this result as normal/abnormal . [place] [address]-02-22 13:17:00 Test Item Value Reference Range Interpretation Comments Eosinophils # (test code 0.4 See_Comment [A utomated message] The = Eosinophils #) system whic h generated this result tra nsmitted reference range : <=0.5. The reference r christiano was not used to int erpret this result as normal/abnormal . [place] 638193-02-22 13:17:00 Test Item Value Reference Range Interpretation Comments Basophils # (test code 0.1 See_Comment [Aut omated message] The = Basophils #) system which generated this result tra nsmitted reference range : <=0.2. The reference r christiano was not used to int erpret this result as normal/abnormal . [place] 638193-02-22 13:17:00 Test Item Value Reference Range Interpretation Comments WBC (test code = WBC) 7.5 3.7-10.4 [place] 638193-02-22 13:17:00 Test Item Value Reference Range Interpretation Comments RBC (test code = RBC) 3.30 4.20-5.40 [place] [address]-02-22 13:17:00 Test Item Value Reference Range Interpretation Comments Hgb (test code = Hgb) 9.9 12.0-16.0 [place] [address]-02-22 13:17:00 Test Item Value Reference Range Interpretation Comments Hct (test code = Hct) 30.3 36.0-48.0 [place] [address]-02-22 13:17:00 Test Item Value Reference Range Interpretation Comments MCV (test code = MCV) 91.8 80.0-98.0 [place] [address]-02-22 13:17:00 Test Item Value Reference Range Interpretation Comments MCH (test code = MCH) 30.0 pg 27.0-31.0 [place] 638193-02-22 13:17:00 Test Item Value Reference Range Interpretation Comments MCHC (test code = MCHC) 32.7 32.0-36.0 [place] 638193-02-22 13:17:00 Test Item Value Reference Range Interpretation Comments RDW (test code = RDW) 14.4 11.5-14.5 [place] 638193-02-22 13:17:00 Test Item Value Reference Range Interpretation Comments Platelet (test code = Platelet) 136 133-450 [place] 638193-02-22 13:17:00 Test Item Value Reference Range Interpretation Comments MPV (test code = MPV) 8.7 7.4-10.4 [facility]2023-02-22 13:17:00 Test Item Value Reference Range Interpretation Comments Ca Ion WB (test code = Ca Ion WB) 1.06 1.05-1.25 [place] 998623-02-22 13:17:00 Test Item Value Reference Range Interpretation Comments Ca Ion at pH 7.4 WB (test code = Ca Ion 1.03 1.05-1.25 at pH 7.4 WB) [facility]2023-02-22 13:17:00 Test Item Value Reference Range Interpretation Comments Glucose Lvl (test code = Glucose Lvl) 65 70-99 [place] 218493-02-22 13:17:00 Test Item Value Reference Range Interpretation Comments BUN (test code = BUN) 39 7-22 [place] 218493-02-22 13:17:00 Test Item Value Reference Range Interpretation Comments Creatinine Lvl (test code = Creatinine 2.03 0.50-1.40 Lvl) [facility]2023-02-22 13:17:00 Test Item Value Reference Range Interpretation Comments Sodium Lvl (test code = Sodium Lvl) 139 135-145 [place] 218493-02-22 13:17:00 Test Item Value Reference Range Interpretation Comments Potassium Lvl (test code = Potassium 4.7 3.5-5.1 Lvl) [place] 218493-02-22 13:17:00 Test Item Value Reference Range Interpretation Comments Chloride Lvl (test code = Chloride Lvl) 107 95-109 [place] 218493-02-22 13:17:00 Test Item Value Reference Range Interpretation Comments CO2 (test code = CO2) 26 24-32 [place] 218493-02-22 13:17:00 Test Item Value Reference Range Interpretation Comments Calcium Lvl (test code = Calcium Lvl) 8.1 8.5-10.5 [place] 218493-02-22 13:17:00 Test Item Value Reference Range Interpretation Comments AGAP (test code = AGAP) 10.7 10.0-20.0 [place] 218493-02-22 13:17:00 Test Item Value Reference Range Interpretation Comments eGFR (test code = eGFR) 24 [place] 218493-02-22 13:17:00 Test Item Value Reference Range Interpretation Comments Magnesium Lvl (test code = Magnesium 2.7 1.8-2.4 Lvl) [place] 218493-02-22 13:17:00 Test Item Value Reference Range Interpretation Comments Phosphorus (test code = Phosphorus) 3.9 2.5-4.5 [place] 711743-02-22 13:17:00 Test Item Value Reference Range Interpretation Comments Glucose Lvl (test code = Glucose Lvl) 65 70-99 [place] [address]-02-22 13:17:00 Test Item Value Reference Range Interpretation Comments BUN (test code = BUN) 39 7-22 [place] [address]-02-22 13:17:00 Test Item Value Reference Range Interpretation Comments Creatinine Lvl (test code = Creatinine 2.03 0.50-1.40 Lvl) [place] 711743-02-22 13:17:00 Test Item Value Reference Range Interpretation Comments Sodium Lvl (test code = Sodium Lvl) 139 135-145 [place] 711743-02-22 13:17:00 Test Item Value Reference Range Interpretation Comments Potassium Lvl (test code = Potassium 4.7 3.5-5.1 Lvl) [place] 711743-02-22 13:17:00 Test Item Value Reference Range Interpretation Comments Chloride Lvl (test code = Chloride Lvl) 107 95-109 [facility] CenterFfihofbCRQRKJEHR3510-62-42 13:17:00 Test Item Value Reference Range Interpretation Comments CO2 (test code = CO2) 26 24-32 [facility] CenterKtxpxoqHZZUYGMNG4132-58-51 13:17:00 Test Item Value Reference Range Interpretation Comments Calcium Lvl (test code = Calcium Lvl) 8.1 8.5-10.5 [facility] CenterTqvabzwPDEMTMACE5166-49-92 13:17:00 Test Item Value Reference Range Interpretation Comments AGAP (test code = AGAP) 10.7 10.0-20.0 [facility] CenterAcxqhwwTTBUBZCRA8060-74-72 13:17:00 Test Item Value Reference Range Interpretation Comments eGFR (test code = eGFR) 24 [facility] CenterSvwtaemVDFRXQHSS5179-71-98 13:17:00 Test Item Value Reference Range Interpretation Comments Ca Ion WB (test code = Ca Ion WB) 1.06 1.05-1.25 [facility] CenterMclzpprKLDEKOYPW9491-55-02 13:17:00 Test Item Value Reference Range Interpretation Comments Ca Ion at pH 7.4 WB (test code = Ca Ion 1.03 1.05-1.25 at pH 7.4 WB) [facility] CenterSasrajkKCJGPVRWZ0255-27-11 13:17:00 Test Item Value Reference Range Interpretation Comments Magnesium Lvl (test code = Magnesium 2.7 1.8-2.4 Lvl) [facility] CenterVdfdrnxHZNOXCTUL6960-76-81 13:17:00 Test Item Value Reference Range Interpretation Comments Phosphorus (test code = Phosphorus) 3.9 2.5-4.5 [facility] HospitalFaeskftRTOPUSBKFR0324-78-50 13:17:00 Test Item Value Reference Range Interpretation Comments Segs (test code = Segs) 54.4 45.0-75.0 [place] 638193-02-22 13:17:00 Test Item Value Reference Range Interpretation Comments Lymphocytes (test code = Lymphocytes) 29.3 20.0-40.0 [place] 638193-02-22 13:17:00 Test Item Value Reference Range Interpretation Comments Monocytes (test code = Monocytes) 10.5 2.0-12.0 [place] 638193-02-22 13:17:00 Test Item Value Reference Range Interpretation Comments Eosinophils (test code = 5.0 See_Comment [A utomated message] The Eosinophils) system which ge nerated this result tra nsmitted reference range : <=4.0. The reference r christiano was not used to int erpret this result as normal/abnormal . [place] 638193-02-22 13:17:00 Test Item Value Reference Range Interpretation Comments Basophils (test code = 0.8 See_Comment [Aut omated message] The Basophils) system which ge nerated this result tra nsmitted reference range : <=1.0. The reference r christiano was not used to int erpret this result as normal/abnormal . [place] [address]-02-22 13:17:00 Test Item Value Reference Range Interpretation Comments Neutrophils # (test code = Neutrophils 4.1 1.5-8.1 #) [place] [address]-02-22 13:17:00 Test Item Value Reference Range Interpretation Comments Lymphocytes # (test code = Lymphocytes 2.2 1.0-5.5 #) [place] [address]-02-22 13:17:00 Test Item Value Reference Range Interpretation Comments Monocytes # (test code 0.8 See_Comment [Aut omated message] The = Monocytes #) system which generated this result tra nsmitted reference range : <=0.8. The reference r christiano was not used to int erpret this result as normal/abnormal . [place] [address]-02-22 13:17:00 Test Item Value Reference Range Interpretation Comments Eosinophils # (test code 0.4 See_Comment [A utomated message] The = Eosinophils #) system [facility] h generated this result tra nsmitted reference range : <=0.5. The reference r christiano was not used to int erpret this result as normal/abnormal . [place] 638193-02-22 13:17:00 Test Item Value Reference Range Interpretation Comments Basophils # (test code 0.1 See_Comment [Aut omated message] The = Basophils #) system which generated this result tra nsmitted reference range : <=0.2. The reference r christiano was not used to int erpret this result as normal/abnormal . [place] 638193-02-22 13:17:00 Test Item Value Reference Range Interpretation Comments WBC (test code = WBC) 7.5 3.7-10.4 [facility] HospitalBleuxhhVBUZDIFBCD2617-46-35 13:17:00 Test Item Value Reference Range Interpretation Comments RBC (test code = RBC) 3.30 4.20-5.40 [facility] HospitalDaqfewiPXMKPEIMSZ5028-84-59 13:17:00 Test Item Value Reference Range Interpretation Comments Hgb (test code = Hgb) 9.9 12.0-16.0 [place] 638193-02-22 13:17:00 Test Item Value Reference Range Interpretation Comments Hct (test code = Hct) 30.3 36.0-48.0 [place] 638193-02-22 13:17:00 Test Item Value Reference Range Interpretation Comments MCV (test code = MCV) 91.8 80.0-98.0 [place] 638193-02-22 13:17:00 Test Item Value Reference Range Interpretation Comments MCH (test code = MCH) 30.0 pg 27.0-31.0 [facility] HospitalStitwtoBZLKJWCWYW5969-19-33 13:17:00 Test Item Value Reference Range Interpretation Comments MCHC (test code = MCHC) 32.7 32.0-36.0 [facility] HospitalLgxdierADSKUJUIYY0211-93-88 13:17:00 Test Item Value Reference Range Interpretation Comments RDW (test code = RDW) 14.4 11.5-14.5 [facility] HospitalJfczexpDOGJCNHYDV5013-16-22 13:17:00 Test Item Value Reference Range Interpretation Comments Platelet (test code = Platelet) 136 133-450 [facility] HospitalFoduupxCTGBUKKGMM1663-30-98 13:17:00 Test Item Value Reference Range Interpretation Comments MPV (test code = MPV) 8.7 7.4-10.4 [place] 638193-02-22 13:17:00 Test Item Value Reference Range Interpretation Comments Segs (test code = Segs) 54.4 45.0-75.0 [place] 638193-02-22 13:17:00 Test Item Value Reference Range Interpretation Comments Lymphocytes (test code = Lymphocytes) 29.3 20.0-40.0 [place] 638193-02-22 13:17:00 Test Item Value Reference Range Interpretation Comments Monocytes (test code = Monocytes) 10.5 2.0-12.0 [place] 638193-02-22 13:17:00 Test Item Value Reference Range Interpretation Comments Eosinophils (test code = 5.0 See_Comment [A utomated message] The Eosinophils) system which ge nerated this result tra nsmitted reference range : <=4.0. The reference r christiano was not used to int erpret this result as normal/abnormal . [place] 638193-02-22 13:17:00 Test Item Value Reference Range Interpretation Comments Basophils (test code = 0.8 See_Comment [Aut omated message] The Basophils) system which ge nerated this result tra nsmitted reference range : <=1.0. The reference r christiano was not used to int erpret this result as normal/abnormal . [place] [address]-02-22 13:17:00 Test Item Value Reference Range Interpretation Comments Neutrophils # (test code = Neutrophils 4.1 1.5-8.1 #) [address]02-22 13:17:00 Test Item Value Reference Range Interpretation Comments Lymphocytes # (test code = Lymphocytes 2.2 1.0-5.5 #) [place] [address]-02-22 13:17:00 Test Item Value Reference Range Interpretation Comments Monocytes # (test code 0.8 See_Comment [Aut omated message] The = Monocytes #) system which generated this result tra nsmitted reference range : <=0.8. The reference r christiano was not used to int erpret this result as normal/abnormal . [place] 638193-02-22 13:17:00 Test Item Value Reference Range Interpretation Comments Eosinophils # (test code 0.4 See_Comment [A utomated message] The = Eosinophils #) system whic h generated this result tra nsmitted reference range : <=0.5. The reference r christiano was not used to int erpret this result as normal/abnormal . [place] [address]-02-22 13:17:00 Test Item Value Reference Range Interpretation Comments Basophils # (test code 0.1 See_Comment [Aut omated message] The = Basophils #) system which generated this result tra nsmitted reference range : <=0.2. The reference r christiano was not used to int erpret this result as normal/abnormal . [place] [address]-02-22 13:17:00 Test Item Value Reference Range Interpretation Comments WBC (test code = WBC) 7.5 3.7-10.4 [facility] HospitalIyuktakBVNBRRZWGF8752-73-42 13:17:00 Test Item Value Reference Range Interpretation Comments RBC (test code = RBC) 3.30 4.20-5.40 [facility] HospitalCmxokvoNSSWKVSKEW0083-27-34 13:17:00 Test Item Value Reference Range Interpretation Comments Hgb (test code = Hgb) 9.9 12.0-16.0 [facility] HospitalJydyzamNCQHBTGYJT1059-94-93 13:17:00 Test Item Value Reference Range Interpretation Comments Hct (test code = Hct) 30.3 36.0-48.0 [facility] HospitalHdvkjeiMFSNFFWDMW5983-60-03 13:17:00 Test Item Value Reference Range Interpretation Comments MCV (test code = MCV) 91.8 80.0-98.0 [facility] HospitalKiatydqATPYAWNQNI4329-10-46 13:17:00 Test Item Value Reference Range Interpretation Comments MCH (test code = MCH) 30.0 pg 27.0-31.0 [facility] HospitalLbcrfiwVUMOBQUGTR9344-00-46 13:17:00 Test Item Value Reference Range Interpretation Comments MCHC (test code = MCHC) 32.7 32.0-36.0 [facility] HospitalBdovjbrBXTCLGSOGM4037-68-33 13:17:00 Test Item Value Reference Range Interpretation Comments RDW (test code = RDW) 14.4 11.5-14.5 [facility] HospitalStgvxalNKXVCRFJIP6590-42-73 13:17:00 Test Item Value Reference Range Interpretation Comments Platelet (test code = Platelet) 136 133-450 [facility] HospitalRoytalmFRROLATWYN9767-29-58 13:17:00 Test Item Value Reference Range Interpretation Comments MPV (test code = MPV) 8.7 7.4-10.4 [facility]PARATHYROID COJFLKW9379-17-58 13:17:00 Test Item Value Reference Range Interpretation Comments Ca Ion WB (test code = Ca Ion WB) 1.06 1.05-1.25 [facility] [id number] 13:17:00 Test Item Value Reference Range Interpretation Comments Ca Ion at pH 7.4 WB (test code = Ca Ion 1.03 1.05-1.25 at pH 7.4 WB) [facility]2023-02-22 13:17:00 Test Item Value Reference Range Interpretation Comments Glucose Lvl (test code = Glucose Lvl) 65 70-99 [place] 218493-02-22 13:17:00 Test Item Value Reference Range Interpretation Comments BUN (test code = BUN) 39 7-22 [place] 218493-02-22 13:17:00 Test Item Value Reference Range Interpretation Comments Creatinine Lvl (test code = Creatinine 2.03 0.50-1.40 Lvl) [facility]2023-02-22 13:17:00 Test Item Value Reference Range Interpretation Comments Sodium Lvl (test code = Sodium Lvl) 139 135-145 [place] 218493-02-22 13:17:00 Test Item Value Reference Range Interpretation Comments Potassium Lvl (test code = Potassium 4.7 3.5-5.1 Lvl) [facility]2023-02-22 13:17:00 Test Item Value Reference Range Interpretation Comments Chloride Lvl (test code = Chloride Lvl) 107 95-109 [facility]2023-02-22 13:17:00 Test Item Value Reference Range Interpretation Comments CO2 (test code = CO2) 26 24-32 [facility]2023-02-22 13:17:00 Test Item Value Reference Range Interpretation Comments Calcium Lvl (test code = Calcium Lvl) 8.1 8.5-10.5 [facility]2023-02-22 13:17:00 Test Item Value Reference Range Interpretation Comments AGAP (test code = AGAP) 10.7 10.0-20.0 [facility]2023-02-22 13:17:00 Test Item Value Reference Range Interpretation Comments eGFR (test code = eGFR) 24 [place] 218493-02-22 13:17:00 Test Item Value Reference Range Interpretation Comments Magnesium Lvl (test code = Magnesium 2.7 1.8-2.4 Lvl) [facility]2023-02-22 13:17:00 Test Item Value Reference Range Interpretation Comments Phosphorus (test code = Phosphorus) 3.9 2.5-4.5 [facility]AmaxraeGOFTSHVPN6028-15-52 13:17:00 Test Item Value Reference Range Interpretation Comments Glucose Lvl (test code = Glucose Lvl) 65 70-99 [facility] CenterBffueyrOXROMCEIF9622-25-38 13:17:00 Test Item Value Reference Range Interpretation Comments BUN (test code = BUN) 39 7-22 [facility] CenterTjpngisGBQENAIEL7367-98-67 13:17:00 Test Item Value Reference Range Interpretation Comments Creatinine Lvl (test code = Creatinine 2.03 0.50-1.40 Lvl) [facility] CenterGvpglroETWEFYGRB8550-13-99 13:17:00 Test Item Value Reference Range Interpretation Comments Sodium Lvl (test code = Sodium Lvl) 139 135-145 [facility] CenterUsgqtwqCYAMIUMSG9122-51-52 13:17:00 Test Item Value Reference Range Interpretation Comments Potassium Lvl (test code = Potassium 4.7 3.5-5.1 Lvl) [facility] CenterXdgwoadAQRRNKWDX5081-94-71 13:17:00 Test Item Value Reference Range Interpretation Comments Chloride Lvl (test code = Chloride Lvl) 107 95-109 [facility] CenterVbzsjebCUYJHWVKW1804-91-23 13:17:00 Test Item Value Reference Range Interpretation Comments CO2 (test code = CO2) 26 24-32 [facility] CenterCfcykfbCLUSLBAZW1655-74-90 13:17:00 Test Item Value Reference Range Interpretation Comments Calcium Lvl (test code = Calcium Lvl) 8.1 8.5-10.5 [facility] CenterKcyxbdjNJMUOCAVG0587-54-72 13:17:00 Test Item Value Reference Range Interpretation Comments AGAP (test code = AGAP) 10.7 10.0-20.0 [facility] CenterGsrhjpyTBRQOZAWN9805-65-81 13:17:00 Test Item Value Reference Range Interpretation Comments eGFR (test code = eGFR) 24 [facility] CenterRtscinsYYTUFMWXA9791-60-57 13:17:00 Test Item Value Reference Range Interpretation Comments Ca Ion WB (test code = Ca Ion WB) 1.06 1.05-1.25 [facility] CenterAkvpmxcSPJBBAPHS6902-70-09 13:17:00 Test Item Value Reference Range Interpretation Comments Ca Ion at pH 7.4 WB (test code = Ca Ion 1.03 1.05-1.25 at pH 7.4 WB) [facility] CenterCacspklVOHFMCYKU1533-72-43 13:17:00 Test Item Value Reference Range Interpretation Comments Magnesium Lvl (test code = Magnesium 2.7 1.8-2.4 Lvl) [facility] CenterOfievjmEFDSJMIFX4280-79-89 13:17:00 Test Item Value Reference Range Interpretation Comments Phosphorus (test code = Phosphorus) 3.9 2.5-4.5 [facility]ZhaldlxEJXSINOCCW9677-96-90 13:17:00 Test Item Value Reference Range Interpretation Comments Segs (test code = Segs) 54.4 45.0-75.0 [facility] HospitalKcijhtsNVTWQVVRGP5071-70-68 13:17:00 Test Item Value Reference Range Interpretation Comments Lymphocytes (test code = Lymphocytes) 29.3 20.0-40.0 [place] 638193-02-22 13:17:00 Test Item Value Reference Range Interpretation Comments Monocytes (test code = Monocytes) 10.5 2.0-12.0 [facility] HospitalYfejilpQFDLRFFBQO5723-04-37 13:17:00 Test Item Value Reference Range Interpretation Comments Eosinophils (test code = 5.0 See_Comment [A utomated message] The Eosinophils) system which ge nerated this result tra nsmitted reference range : <=4.0. The reference r christiano was not used to int erpret this result as normal/abnormal . [facility] HospitalAtgrcjiVJVWWUNJEE2398-78-74 13:17:00 Test Item Value Reference Range Interpretation Comments Basophils (test code = 0.8 See_Comment [Aut omated message] The Basophils) system which ge nerated this result tra nsmitted reference range : <=1.0. The reference r christiano was not used to int erpret this result as normal/abnormal . [facility] HospitalHnhuezkOFPCBOCAWA0245-79-54 13:17:00 Test Item Value Reference Range Interpretation Comments Neutrophils # (test code = Neutrophils 4.1 1.5-8.1 #) [facility] HospitalAhgnzpeZOVKHJQGXG8160-90-83 13:17:00 Test Item Value Reference Range Interpretation Comments Lymphocytes # (test code = Lymphocytes 2.2 1.0-5.5 #) [place] 638193-02-22 13:17:00 Test Item Value Reference Range Interpretation Comments Monocytes # (test code 0.8 See_Comment [Aut omated message] The = Monocytes #) system which generated this result tra nsmitted reference range : <=0.8. The reference r christiano was not used to int erpret this result as normal/abnormal . [facility] HospitalCvmwunpFLIIBAIOAT3607-86-44 13:17:00 Test Item Value Reference Range Interpretation Comments Eosinophils # (test code 0.4 See_Comment [A utomated message] The = Eosinophils #) system whic h generated this result tra nsmitted reference range : <=0.5. The reference r christiano was not used to int erpret this result as normal/abnormal . [facility] HospitalJbheqfsAEWYUGIINH8355-61-37 13:17:00 Test Item Value Reference Range Interpretation Comments Basophils # (test code 0.1 See_Comment [Aut omated message] The = Basophils #) system which generated this result tra nsmitted reference range : <=0.2. The reference r christiano was not used to int erpret this result as normal/abnormal . [place] 638193-02-22 13:17:00 Test Item Value Reference Range Interpretation Comments WBC (test code = WBC) 7.5 3.7-10.4 [place] 638193-02-22 13:17:00 Test Item Value Reference Range Interpretation Comments RBC (test code = RBC) 3.30 4.20-5.40 [place] 638193-02-22 13:17:00 Test Item Value Reference Range Interpretation Comments Hgb (test code = Hgb) 9.9 12.0-16.0 [place] 638193-02-22 13:17:00 Test Item Value Reference Range Interpretation Comments Hct (test code = Hct) 30.3 36.0-48.0 [place] 638193-02-22 13:17:00 Test Item Value Reference Range Interpretation Comments MCV (test code = MCV) 91.8 80.0-98.0 [place] 638193-02-22 13:17:00 Test Item Value Reference Range Interpretation Comments MCH (test code = MCH) 30.0 pg 27.0-31.0 [place] 638193-02-22 13:17:00 Test Item Value Reference Range Interpretation Comments MCHC (test code = MCHC) 32.7 32.0-36.0 [place] 638193-02-22 13:17:00 Test Item Value Reference Range Interpretation Comments RDW (test code = RDW) 14.4 11.5-14.5 [place] 638193-02-22 13:17:00 Test Item Value Reference Range Interpretation Comments Platelet (test code = Platelet) 136 133-450 [facility] HospitalLhviqarGWJQCFFLIK8080-93-67 13:17:00 Test Item Value Reference Range Interpretation Comments MPV (test code = MPV) 8.7 7.4-10.4 [facility] HospitalRvrbbufCCSCFCUUDX1898-25-69 13:17:00 Test Item Value Reference Range Interpretation Comments Segs (test code = Segs) 54.4 45.0-75.0 [facility] HospitalJlsdmdrDHEBJATKZP3575-83-04 13:17:00 Test Item Value Reference Range Interpretation Comments Lymphocytes (test code = Lymphocytes) 29.3 20.0-40.0 [facility] HospitalKpjlfwiINFOHAUOUL9568-05-54 13:17:00 Test Item Value Reference Range Interpretation Comments Monocytes (test code = Monocytes) 10.5 2.0-12.0 [facility] HospitalCdluqlqXKZIKZSOZY5422-22-07 13:17:00 Test Item Value Reference Range Interpretation Comments Eosinophils (test code = 5.0 See_Comment [A utomated message] The Eosinophils) system which ge nerated this result tra nsmitted reference range : <=4.0. The reference r christiano was not used to int erpret this result as normal/abnormal . [facility] HospitalJnibfioQHSLEAXSID1065-80-12 13:17:00 Test Item Value Reference Range Interpretation Comments Basophils (test code = 0.8 See_Comment [Aut omated message] The Basophils) system which ge nerated this result tra nsmitted reference range : <=1.0. The reference r christiano was not used to int erpret this result as normal/abnormal . [facility] HospitalUwxvbrrCFOBOHHBIM3040-62-72 13:17:00 Test Item Value Reference Range Interpretation Comments Neutrophils # (test code = Neutrophils 4.1 1.5-8.1 #) [facility] HospitalYnnusdrWLAQATKJTJ6006-96-79 13:17:00 Test Item Value Reference Range Interpretation Comments Lymphocytes # (test code = Lymphocytes 2.2 1.0-5.5 #) [facility] HospitalIpigawpBBQCYTMSHK9548-42-32 13:17:00 Test Item Value Reference Range Interpretation Comments Monocytes # (test code 0.8 See_Comment [Aut omated message] The = Monocytes #) system which generated this result tra nsmitted reference range : <=0.8. The reference r christiano was not used to int erpret this result as normal/abnormal . [facility] HospitalAppghakKOYMDEMBWO8246-51-29 13:17:00 Test Item Value Reference Range Interpretation Comments Eosinophils # (test code 0.4 See_Comment [A utomated message] The = Eosinophils #) system whic h generated this result tra nsmitted reference range : <=0.5. The reference r christiano was not used to int erpret this result as normal/abnormal . [place] 638193-02-22 13:17:00 Test Item Value Reference Range Interpretation Comments Basophils # (test code 0.1 See_Comment [Aut omated message] The = Basophils #) system which generated this result tra nsmitted reference range : <=0.2. The reference r christiano was not used to int erpret this result as normal/abnormal . [facility] HospitalKxusrjsWBOCPRXWCA6170-84-60 13:17:00 Test Item Value Reference Range Interpretation Comments WBC (test code = WBC) 7.5 3.7-10.4 [place] 638193-02-22 13:17:00 Test Item Value Reference Range Interpretation Comments RBC (test code = RBC) 3.30 4.20-5.40 [place] 638193-02-22 13:17:00 Test Item Value Reference Range Interpretation Comments Hgb (test code = Hgb) 9.9 12.0-16.0 [facility] HospitalSguoxbvUMGPUTARYX6338-85-94 13:17:00 Test Item Value Reference Range Interpretation Comments Hct (test code = Hct) 30.3 36.0-48.0 [place] 638193-02-22 13:17:00 Test Item Value Reference Range Interpretation Comments MCV (test code = MCV) 91.8 80.0-98.0 [place] 638193-02-22 13:17:00 Test Item Value Reference Range Interpretation Comments MCH (test code = MCH) 30.0 pg 27.0-31.0 [place] 638193-02-22 13:17:00 Test Item Value Reference Range Interpretation Comments MCHC (test code = MCHC) 32.7 32.0-36.0 [place] [address]-02-22 13:17:00 Test Item Value Reference Range Interpretation Comments RDW (test code = RDW) 14.4 11.5-14.5 [place] 638193-02-22 13:17:00 Test Item Value Reference Range Interpretation Comments Platelet (test code = Platelet) 136 133-450 [facility] HospitalRcbyaimUMXTQAUXEZ0222-61-89 13:17:00 Test Item Value Reference Range Interpretation [...] Ion 1.03 1.05-1.25 at pH 7.4 WB) [place] 218493-02-22 13:17:00 Test Item Value Reference Range Interpretation Comments Glucose Lvl (test code = Glucose Lvl) 65 70-99 [place] 218493-02-22 13:17:00 Test Item Value Reference Range Interpretation Comments BUN (test code = BUN) 39 7-22 [place] 218493-02-22 13:17:00 Test Item Value Reference Range Interpretation Comments Creatinine Lvl (test code = Creatinine 2.03 0.50-1.40 Lvl) [facility]2023-02-22 13:17:00 Test Item Value Reference Range Interpretation Comments Sodium Lvl (test code = Sodium Lvl) 139 135-145 [place] 218493-02-22 13:17:00 Test Item Value Reference Range Interpretation Comments Potassium Lvl (test code = Potassium 4.7 3.5-5.1 Lvl) [place] 218493-02-22 13:17:00 Test Item Value Reference Range Interpretation Comments Chloride Lvl (test code = Chloride Lvl) 107 95-109 [place] 218493-02-22 13:17:00 Test Item Value Reference Range Interpretation Comments CO2 (test code = CO2) 26 24-32 [place] 218493-02-22 13:17:00 Test Item Value Reference Range Interpretation Comments Calcium Lvl (test code = Calcium Lvl) 8.1 8.5-10.5 [place] 218493-02-22 13:17:00 Test Item Value Reference Range Interpretation Comments AGAP (test code = AGAP) 10.7 10.0-20.0 [facility]2023-02-22 13:17:00 Test Item Value Reference Range Interpretation Comments eGFR (test code = eGFR) 24 [facility]2023-02-22 13:17:00 Test Item Value Reference Range Interpretation Comments Magnesium Lvl (test code = Magnesium 2.7 1.8-2.4 Lvl) [facility]2023-02-22 13:17:00 Test Item Value Reference Range Interpretation Comments Phosphorus (test code = Phosphorus) 3.9 2.5-4.5 [place] 711743-02-22 13:17:00 Test Item Value Reference Range Interpretation Comments Glucose Lvl (test code = Glucose Lvl) 65 70-99 [place] 711743-02-22 13:17:00 Test Item Value Reference Range Interpretation Comments BUN (test code = BUN) 39 7-22 [place] 711743-02-22 13:17:00 Test Item Value Reference Range Interpretation Comments Creatinine Lvl (test code = Creatinine 2.03 0.50-1.40 Lvl) [facility] CenterUwgkcrbWCZQPPDAE3427-75-62 13:17:00 Test Item Value Reference Range Interpretation Comments Sodium Lvl (test code = Sodium Lvl) 139 135-145 [facility] CenterYzfdoqtHHLLWGROW2860-61-04 13:17:00 Test Item Value Reference Range Interpretation Comments Potassium Lvl (test code = Potassium 4.7 3.5-5.1 Lvl) [facility] CenterFetjbxyGJYPUBELP3150-92-30 13:17:00 Test Item Value Reference Range Interpretation Comments Chloride Lvl (test code = Chloride Lvl) 107 95-109 [place] 711743-02-22 13:17:00 Test Item Value Reference Range Interpretation Comments CO2 (test code = CO2) 26 24-32 [place] 711743-02-22 13:17:00 Test Item Value Reference Range Interpretation Comments Calcium Lvl (test code = Calcium Lvl) 8.1 8.5-10.5 [place] 711743-02-22 13:17:00 Test Item Value Reference Range Interpretation Comments AGAP (test code = AGAP) 10.7 10.0-20.0 [address]02-22 13:17:00 Test Item Value Reference Range Interpretation Comments eGFR (test code = eGFR) 24 [facility] CenterStvtcvnQRYYDXKXR4198-12-28 13:17:00 Test Item Value Reference Range Interpretation Comments Ca Ion WB (test code = Ca Ion WB) 1.06 1.05-1.25 [facility] CenterOttmxkjEKAWVZHZB7448-88-29 13:17:00 Test Item Value Reference Range Interpretation Comments Ca Ion at pH 7.4 WB (test code = Ca Ion 1.03 1.05-1.25 at pH 7.4 WB) [facility] CenterTovsgywLDLSAJFCW5492-03-79 13:17:00 Test Item Value Reference Range Interpretation Comments Magnesium Lvl (test code = Magnesium 2.7 1.8-2.4 Lvl) [facility] CenterHdijnkjRHZVNBSNV0690-26-57 13:17:00 Test Item Value Reference Range Interpretation Comments Phosphorus (test code = Phosphorus) 3.9 2.5-4.5 [facility] HospitalEnmyqcmPKZXUZKAFL5169-94-28 13:17:00 Test Item Value Reference Range Interpretation Comments Segs (test code = Segs) 54.4 45.0-75.0 [facility] HospitalHcuikizRDKNNZJGXN2406-14-79 13:17:00 Test Item Value Reference Range Interpretation Comments Lymphocytes (test code = Lymphocytes) 29.3 20.0-40.0 [facility] HospitalHaiqedeCNXEGPSHGI7972-58-16 13:17:00 Test Item Value Reference Range Interpretation Comments Monocytes (test code = Monocytes) 10.5 2.0-12.0 [facility] HospitalIiesnvdXVJTPJHMWX8959-25-75 13:17:00 Test Item Value Reference Range Interpretation Comments Eosinophils (test code = 5.0 See_Comment [A utomated message] The Eosinophils) system which ge nerated this result tra nsmitted reference range : <=4.0. The reference r christiano was not used to int erpret this result as normal/abnormal . [facility] HospitalPxymyfvDYRQJCFCPQ8193-23-55 13:17:00 Test Item Value Reference Range Interpretation Comments Basophils (test code = 0.8 See_Comment [Aut omated message] The Basophils) system which ge nerated this result tra nsmitted reference range : <=1.0. The reference r christiano was not used to int erpret this result as normal/abnormal . [place] [address]-02-22 13:17:00 Test Item Value Reference Range Interpretation Comments Neutrophils # (test code = Neutrophils 4.1 1.5-8.1 #) [facility] HospitalWnvrmbmKAJBYKODTM8545-96-85 13:17:00 Test Item Value Reference Range Interpretation Comments Lymphocytes # (test code = Lymphocytes 2.2 1.0-5.5 #) [place] 638193-02-22 13:17:00 Test Item Value Reference Range Interpretation Comments Monocytes # (test code 0.8 See_Comment [Aut omated message] The = Monocytes #) system which generated this result tra nsmitted reference range : <=0.8. The reference r christiano was not used to int erpret this result as normal/abnormal . [place] 638193-02-22 13:17:00 Test Item Value Reference Range Interpretation Comments Eosinophils # (test code 0.4 See_Comment [A utomated message] The = Eosinophils #) system whic h generated this result tra nsmitted reference range : <=0.5. The reference r christiano was not used to int erpret this result as normal/abnormal . [facility] HospitalYrymwetROSANFGGYZ2897-59-20 13:17:00 Test Item Value Reference Range Interpretation Comments Basophils # (test code 0.1 See_Comment [Aut omated message] The = Basophils #) system which generated this result tra nsmitted reference range : <=0.2. The reference r christiano was not used to int erpret this result as normal/abnormal . [facility] HospitalSmqmkfnJNEZTMIPUT3562-88-22 13:17:00 Test Item Value Reference Range Interpretation Comments WBC (test code = WBC) 7.5 3.7-10.4 [place] 638193-02-22 13:17:00 Test Item Value Reference Range Interpretation Comments RBC (test code = RBC) 3.30 4.20-5.40 [place] [address]-02-22 13:17:00 Test Item Value Reference Range Interpretation Comments Hgb (test code = Hgb) 9.9 12.0-16.0 [place] [address]-02-22 13:17:00 Test Item Value Reference Range Interpretation Comments Hct (test code = Hct) 30.3 36.0-48.0 [place] 638193-02-22 13:17:00 Test Item Value Reference Range Interpretation Comments MCV (test code = MCV) 91.8 80.0-98.0 [place] [address]-02-22 13:17:00 Test Item Value Reference Range Interpretation Comments MCH (test code = MCH) 30.0 pg 27.0-31.0 [place] [address]-02-22 13:17:00 Test Item Value Reference Range Interpretation Comments MCHC (test code = MCHC) 32.7 32.0-36.0 [place] 638193-02-22 13:17:00 Test Item Value Reference Range Interpretation Comments RDW (test code = RDW) 14.4 11.5-14.5 [place] [address]-02-22 13:17:00 Test Item Value Reference Range Interpretation Comments Platelet (test code = Platelet) 136 133-450 [place] 638193-02-22 13:17:00 Test Item Value Reference Range Interpretation Comments MPV (test code = MPV) 8.7 7.4-10.4 [place] [address]-02-22 13:17:00 Test Item Value Reference Range Interpretation Comments Segs (test code = Segs) 54.4 45.0-75.0 [place] [address]-02-22 13:17:00 Test Item Value Reference Range Interpretation Comments Lymphocytes (test code = Lymphocytes) 29.3 20.0-40.0 [place] [address]-02-22 13:17:00 Test Item Value Reference Range Interpretation Comments Monocytes (test code = Monocytes) 10.5 2.0-12.0 [place] [address]-02-22 13:17:00 Test Item Value Reference Range Interpretation Comments Eosinophils (test code = 5.0 See_Comment [A utomated message] The Eosinophils) system which ge nerated this result tra nsmitted reference range : <=4.0. The reference r christiano was not used to int erpret this result as normal/abnormal . [place] [address]-02-22 13:17:00 Test Item Value Reference Range Interpretation Comments Basophils (test code = 0.8 See_Comment [Aut omated message] The Basophils) system which ge nerated this result tra nsmitted reference range : <=1.0. The reference r christiano was not used to int erpret this result as normal/abnormal . [place] 638193-02-22 13:17:00 Test Item Value Reference Range Interpretation Comments Neutrophils # (test code = Neutrophils 4.1 1.5-8.1 #) [place] 638193-02-22 13:17:00 Test Item Value Reference Range Interpretation Comments Lymphocytes # (test code = Lymphocytes 2.2 1.0-5.5 #) [place] 638193-02-22 13:17:00 Test Item Value Reference Range Interpretation Comments Monocytes # (test code 0.8 See_Comment [Aut omated message] The = Monocytes #) system which generated this result tra nsmitted reference range : <=0.8. The reference r christiano was not used to int erpret this result as normal/abnormal . [place] 638193-02-22 13:17:00 Test Item Value Reference Range Interpretation Comments Eosinophils # (test code 0.4 See_Comment [A utomated message] The = Eosinophils #) system whic h generated this result tra nsmitted reference range : <=0.5. The reference r christiano was not used to int erpret this result as normal/abnormal . [place] 638193-02-22 13:17:00 Test Item Value Reference Range Interpretation Comments Basophils # (test code 0.1 See_Comment [Aut omated message] The = Basophils #) system which generated this result tra nsmitted reference range : <=0.2. The reference r christiano was not used to int erpret this result as normal/abnormal . [place] 638193-02-22 13:17:00 Test Item Value Reference Range Interpretation Comments WBC (test code = WBC) 7.5 3.7-10.4 [place] [address]-02-22 13:17:00 Test Item Value Reference Range Interpretation Comments RBC (test code = RBC) 3.30 4.20-5.40 [place] [address]-02-22 13:17:00 Test Item Value Reference Range Interpretation Comments Hgb (test code = Hgb) 9.9 12.0-16.0 [place] [address]-02-22 13:17:00 Test Item Value Reference Range Interpretation Comments Hct (test code = Hct) 30.3 36.0-48.0 [place] 638193-02-22 13:17:00 Test Item Value Reference Range Interpretation Comments MCV (test code = MCV) 91.8 80.0-98.0 [place] 638193-02-22 13:17:00 Test Item Value Reference Range Interpretation Comments MCH (test code = MCH) 30.0 pg 27.0-31.0 [facility] HospitalZllofepYQONAMGCZI9304-86-10 13:17:00 Test Item Value Reference Range Interpretation Comments MCHC (test code = MCHC) 32.7 32.0-36.0 [facility] HospitalZsxsvinHSNBWJVTRZ3121-22-71 13:17:00 Test Item Value Reference Range Interpretation Comments RDW (test code = RDW) 14.4 11.5-14.5 [place] 638193-02-22 13:17:00 Test Item Value Reference Range Interpretation Comments Platelet (test code = Platelet) 136 133-450 [facility] HospitalGbujzupALRRHLOJGV3109-04-86 13:17:00 Test Item Value Reference Range Interpretation [...] Ion 1.03 1.05-1.25 at pH 7.4 WB) [facility]2023-02-22 13:17:00 Test Item Value Reference Range Interpretation Comments Glucose Lvl (test code = Glucose Lvl) 65 70-99 [facility]2023-02-22 13:17:00 Test Item Value Reference Range Interpretation Comments BUN (test code = BUN) 39 7-22 [facility]2023-02-22 13:17:00 Test Item Value Reference Range Interpretation Comments Creatinine Lvl (test code = Creatinine 2.03 0.50-1.40 Lvl) [facility]2023-02-22 13:17:00 Test Item Value Reference Range Interpretation Comments Sodium Lvl (test code = Sodium Lvl) 139 135-145 [place] 218493-02-22 13:17:00 Test Item Value Reference Range Interpretation Comments Potassium Lvl (test code = Potassium 4.7 3.5-5.1 Lvl) [place] 218493-02-22 13:17:00 Test Item Value Reference Range Interpretation Comments Chloride Lvl (test code = Chloride Lvl) 107 95-109 [place] 218493-02-22 13:17:00 Test Item Value Reference Range Interpretation Comments CO2 (test code = CO2) 26 24-32 [place] 218493-02-22 13:17:00 Test Item Value Reference Range Interpretation Comments Calcium Lvl (test code = Calcium Lvl) 8.1 8.5-10.5 [place] 218493-02-22 13:17:00 Test Item Value Reference Range Interpretation Comments AGAP (test code = AGAP) 10.7 10.0-20.0 [place] 218493-02-22 13:17:00 Test Item Value Reference Range Interpretation Comments eGFR (test code = eGFR) 24 [place] 218493-02-22 13:17:00 Test Item Value Reference Range Interpretation Comments Magnesium Lvl (test code = Magnesium 2.7 1.8-2.4 Lvl) [place] 218493-02-22 13:17:00 Test Item Value Reference Range Interpretation Comments Phosphorus (test code = Phosphorus) 3.9 2.5-4.5 [place] 711743-02-22 13:17:00 Test Item Value Reference Range Interpretation Comments Glucose Lvl (test code = Glucose Lvl) 65 70-99 [place] [address]-02-22 13:17:00 Test Item Value Reference Range Interpretation Comments BUN (test code = BUN) 39 7-22 [place] [address]-02-22 13:17:00 Test Item Value Reference Range Interpretation Comments Creatinine Lvl (test code = Creatinine 2.03 0.50-1.40 Lvl) [place] 711743-02-22 13:17:00 Test Item Value Reference Range Interpretation Comments Sodium Lvl (test code = Sodium Lvl) 139 135-145 [place] 711743-02-22 13:17:00 Test Item Value Reference Range Interpretation Comments Potassium Lvl (test code = Potassium 4.7 3.5-5.1 Lvl) [facility]aihtizESAMMWXFA4902[facility]18-05 13:17:00 Test Item Value Reference Range Interpretation Comments Chloride Lvl (test code = Chloride Lvl) 107 95-109 [facility] CenterQoybsotKRCIHIPTY1401-53-85 13:17:00 Test Item Value Reference Range Interpretation Comments CO2 (test code = CO2) 26 24-32 [facility] CenterFgzmgffEPLFZGKRR8829-09-64 13:17:00 Test Item Value Reference Range Interpretation Comments Calcium Lvl (test code = Calcium Lvl) 8.1 8.5-10.5 [place] 711743-02-22 13:17:00 Test Item Value Reference Range Interpretation Comments AGAP (test code = AGAP) 10.7 10.0-20.0 [facility] CenterHhtyhcvWWHIHZKKP5430-77-59 13:17:00 Test Item Value Reference Range Interpretation Comments eGFR (test code = eGFR) 24 [facility] CenterClarwadOTTRDXWHQ8167-68-00 13:17:00 Test Item Value Reference Range Interpretation Comments Ca Ion WB (test code = Ca Ion WB) 1.06 1.05-1.25 [facility] CenterKlqjxxkMCROSKINJ7761-99-23 13:17:00 Test Item Value Reference Range Interpretation Comments Ca Ion at pH 7.4 WB (test code = Ca Ion 1.03 1.05-1.25 at pH 7.4 WB) [facility] CenterLsaqyotCJUTXOZSQ6355-28-02 13:17:00 Test Item Value Reference Range Interpretation Comments Magnesium Lvl (test code = Magnesium 2.7 1.8-2.4 Lvl) [facility] CenterHwqqxgxOPVQVHCQF6218-78-49 13:17:00 Test Item Value Reference Range Interpretation Comments Phosphorus (test code = Phosphorus) 3.9 2.5-4.5 [facility]MuacxtiEFNDVSCSWZ2621-73-53 13:17:00 Test Item Value Reference Range Interpretation Comments Segs (test code = Segs) 54.4 45.0-75.0 [place] 638193-02-22 13:17:00 Test Item Value Reference Range Interpretation Comments Lymphocytes (test code = Lymphocytes) 29.3 20.0-40.0 [place] 638193-02-22 13:17:00 Test Item Value Reference Range Interpretation Comments Monocytes (test code = Monocytes) 10.5 2.0-12.0 [place] 638193-02-22 13:17:00 Test Item Value Reference Range Interpretation Comments Eosinophils (test code = 5.0 See_Comment [A utomated message] The Eosinophils) system which ge nerated this result tra nsmitted reference range : <=4.0. The reference r christiano was not used to int erpret this result as normal/abnormal . [place] 638193-02-22 13:17:00 Test Item Value Reference Range Interpretation Comments Basophils (test code = 0.8 See_Comment [Aut omated message] The Basophils) system which ge nerated this result tra nsmitted reference range : <=1.0. The reference r christiano was not used to int erpret this result as normal/abnormal . [place] 638193-02-22 13:17:00 Test Item Value Reference Range Interpretation Comments Neutrophils # (test code = Neutrophils 4.1 1.5-8.1 #) [place] 638193-02-22 13:17:00 Test Item Value Reference Range Interpretation Comments Lymphocytes # (test code = Lymphocytes 2.2 1.0-5.5 #) [place] [address]-02-22 13:17:00 Test Item Value Reference Range Interpretation Comments Monocytes # (test code 0.8 See_Comment [Aut omated message] The = Monocytes #) system which generated this result tra nsmitted reference range : <=0.8. The reference r christiano was not used to int erpret this result as normal/abnormal . [place] 638193-02-22 13:17:00 Test Item Value Reference Range Interpretation Comments Eosinophils # (test code 0.4 See_Comment [A utomated message] The = Eosinophils #) system whic h generated this result tra nsmitted reference range : <=0.5. The reference r christiano was not used to int erpret this result as normal/abnormal . [place] 638193-02-22 13:17:00 Test Item Value Reference Range Interpretation Comments Basophils # (test code 0.1 See_Comment [Aut omated message] The = Basophils #) system which generated this result tra nsmitted reference range : <=0.2. The reference r christiano was not used to int erpret this result as normal/abnormal . [place] 638193-02-22 13:17:00 Test Item Value Reference Range Interpretation Comments WBC (test code = WBC) 7.5 3.7-10.4 [place] 638193-02-22 13:17:00 Test Item Value Reference Range Interpretation Comments RBC (test code = RBC) 3.30 4.20-5.40 [place] 638193-02-22 13:17:00 Test Item Value Reference Range Interpretation Comments Hgb (test code = Hgb) 9.9 12.0-16.0 [place] [address]-02-22 13:17:00 Test Item Value Reference Range Interpretation Comments Hct (test code = Hct) 30.3 36.0-48.0 [place] [address]-02-22 13:17:00 Test Item Value Reference Range Interpretation Comments MCV (test code = MCV) 91.8 80.0-98.0 [place] [address]-02-22 13:17:00 Test Item Value Reference Range Interpretation Comments MCH (test code = MCH) 30.0 pg 27.0-31.0 [place] 638193-02-22 13:17:00 Test Item Value Reference Range Interpretation Comments MCHC (test code = MCHC) 32.7 32.0-36.0 [place] 638193-02-22 13:17:00 Test Item Value Reference Range Interpretation Comments RDW (test code = RDW) 14.4 11.5-14.5 [place] 638193-02-22 13:17:00 Test Item Value Reference Range Interpretation Comments Platelet (test code = Platelet) 136 133-450 [facility] HospitalDhvqgdtIAHZBHLIXS0364-29-87 13:17:00 Test Item Value Reference Range Interpretation Comments MPV (test code = MPV) 8.7 7.4-10.4 [place] [address]-02-22 13:17:00 Test Item Value Reference Range Interpretation Comments Segs (test code = Segs) 54.4 45.0-75.0 [place] [address]-02-22 13:17:00 Test Item Value Reference Range Interpretation Comments Lymphocytes (test code = Lymphocytes) 29.3 20.0-40.0 [place] [address]-02-22 13:17:00 Test Item Value Reference Range Interpretation Comments Monocytes (test code = Monocytes) 10.5 2.0-12.0 [place] [address]-02-22 13:17:00 Test Item Value Reference Range Interpretation Comments Eosinophils (test code = 5.0 See_Comment [A utomated message] The Eosinophils) system which ge nerated this result tra nsmitted reference range : <=4.0. The reference r christiano was not used to int erpret this result as normal/abnormal . [place] [address]-02-22 13:17:00 Test Item Value Reference Range Interpretation Comments Basophils (test code = 0.8 See_Comment [Aut omated message] The Basophils) system which ge nerated this result tra nsmitted reference range : <=1.0. The reference r christiano was not used to int erpret this result as normal/abnormal . [place] [address]-02-22 13:17:00 Test Item Value Reference Range Interpretation Comments Neutrophils # (test code = Neutrophils 4.1 1.5-8.1 #) [place] [address]-02-22 13:17:00 Test Item Value Reference Range Interpretation Comments Lymphocytes # (test code = Lymphocytes 2.2 1.0-5.5 #) [place] [address]-02-22 13:17:00 Test Item Value Reference Range Interpretation Comments Monocytes # (test code 0.8 See_Comment [Aut omated message] The = Monocytes #) system which generated this result tra nsmitted reference range : <=0.8. The reference r christiano was not used to int erpret this result as normal/abnormal . [place] [address]-02-22 13:17:00 Test Item Value Reference Range Interpretation Comments Eosinophils # (test code 0.4 See_Comment [A utomated message] The = Eosinophils #) system whic h generated this result tra nsmitted reference range : <=0.5. The reference r christiano was not used to int erpret this result as normal/abnormal . [place] [address]-02-22 13:17:00 Test Item Value Reference Range Interpretation Comments Basophils # (test code 0.1 See_Comment [Aut omated message] The = Basophils #) system which generated this result tra nsmitted reference range : <=0.2. The reference r christiano was not used to int erpret this result as normal/abnormal . [place] 638193-02-22 13:17:00 Test Item Value Reference Range Interpretation Comments WBC (test code = WBC) 7.5 3.7-10.4 [place] 638193-02-22 13:17:00 Test Item Value Reference Range Interpretation Comments RBC (test code = RBC) 3.30 4.20-5.40 [place] 638193-02-22 13:17:00 Test Item Value Reference Range Interpretation Comments Hgb (test code = Hgb) 9.9 12.0-16.0 [place] 638193-02-22 13:17:00 Test Item Value Reference Range Interpretation Comments Hct (test code = Hct) 30.3 36.0-48.0 [place] 638193-02-22 13:17:00 Test Item Value Reference Range Interpretation Comments MCV (test code = MCV) 91.8 80.0-98.0 [place] 638193-02-22 13:17:00 Test Item Value Reference Range Interpretation Comments MCH (test code = MCH) 30.0 pg 27.0-31.0 [facility] HospitalGbmddmvYPFGRHKHTQ6016-78-20 13:17:00 Test Item Value Reference Range Interpretation Comments MCHC (test code = MCHC) 32.7 32.0-36.0 [place] 638193-02-22 13:17:00 Test Item Value Reference Range Interpretation Comments RDW (test code = RDW) 14.4 11.5-14.5 [place] 638193-02-22 13:17:00 Test Item Value Reference Range Interpretation Comments Platelet (test code = Platelet) 136 133-450 [facility] HospitalYlymhaoCDETQPNBHX3662-21-63 13:17:00 Test Item Value Reference Range Interpretation Comments MPV (test code = MPV) 8.7 7.4-10.4 [facility]PARATHYROID YXZTSPT0466-25-54 13:17:00 Test Item Value Reference Range Interpretation Comments Ca Ion WB (test code = Ca Ion WB) 1.06 1.05-1.25 [facility]2023-02-22 13:17:00 Test Item Value Reference Range Interpretation Comments Ca Ion at pH 7.4 WB (test code = Ca Ion 1.03 1.05-1.25 at pH 7.4 WB) [place] 218493-02-22 13:17:00 Test Item Value Reference Range Interpretation Comments Glucose Lvl (test code = Glucose Lvl) 65 70-99 [place] 218493-02-22 13:17:00 Test Item Value Reference Range Interpretation Comments BUN (test code = BUN) 39 7-22 [place] 218493-02-22 13:17:00 Test Item Value Reference Range Interpretation Comments Creatinine Lvl (test code = Creatinine 2.03 0.50-1.40 Lvl) [place] 218493-02-22 13:17:00 Test Item Value Reference Range Interpretation Comments Sodium Lvl (test code = Sodium Lvl) 139 135-145 [place] 218493-02-22 13:17:00 Test Item Value Reference Range Interpretation Comments Potassium Lvl (test code = Potassium 4.7 3.5-5.1 Lvl) [place] 218493-02-22 13:17:00 Test Item Value Reference Range Interpretation Comments Chloride Lvl (test code = Chloride Lvl) 107 95-109 [place] 218493-02-22 13:17:00 Test Item Value Reference Range Interpretation Comments CO2 (test code = CO2) 26 24-32 [place] 218493-02-22 13:17:00 Test Item Value Reference Range Interpretation Comments Calcium Lvl (test code = Calcium Lvl) 8.1 8.5-10.5 [place] 218493-02-22 13:17:00 Test Item Value Reference Range Interpretation Comments AGAP (test code = AGAP) 10.7 10.0-20.0 [place] 218493-02-22 13:17:00 Test Item Value Reference Range Interpretation Comments eGFR (test code = eGFR) 24 [place] 218493-02-22 13:17:00 Test Item Value Reference Range Interpretation Comments Magnesium Lvl (test code = Magnesium 2.7 1.8-2.4 Lvl) [place] 218493-02-22 13:17:00 Test Item Value Reference Range Interpretation Comments Phosphorus (test code = Phosphorus) 3.9 2.5-4.5 [place] [address]-02-22 13:17:00 Test Item Value Reference Range Interpretation Comments Glucose Lvl (test code = Glucose Lvl) 65 70-99 [facility] CenterJocnqanGJVZRNPMX2094-39-78 13:17:00 Test Item Value Reference Range Interpretation Comments BUN (test code = BUN) 39 7-22 [facility] CenterYbpgzhaJZIPRYYKY5788-59-94 13:17:00 Test Item Value Reference Range Interpretation Comments Creatinine Lvl (test code = Creatinine 2.03 0.50-1.40 Lvl) [facility] CenterBmawukpSNOUSZXOR7171-73-22 13:17:00 Test Item Value Reference Range Interpretation Comments Sodium Lvl (test code = Sodium Lvl) 139 135-145 [facility] CenterZycahgaURKFSEOLF6606-25-91 13:17:00 Test Item Value Reference Range Interpretation Comments Potassium Lvl (test code = Potassium 4.7 3.5-5.1 Lvl) [facility] CenterCssaliaRFGXQHXCB4097-48-62 13:17:00 Test Item Value Reference Range Interpretation Comments Chloride Lvl (test code = Chloride Lvl) 107 95-109 [facility] CenterGeggmgpPEOXISNVL5809-73-79 13:17:00 Test Item Value Reference Range Interpretation Comments CO2 (test code = CO2) 26 24-32 [facility] CenterNbzmhpxKLWYFOYLI4031-69-98 13:17:00 Test Item Value Reference Range Interpretation Comments Calcium Lvl (test code = Calcium Lvl) 8.1 8.5-10.5 [facility] CenterLcjceepWZRIAZZAG8042-08-23 13:17:00 Test Item Value Reference Range Interpretation Comments AGAP (test code = AGAP) 10.7 10.0-20.0 [facility] CenterAzxxklnVMJNYFTBO1981-93-84 13:17:00 Test Item Value Reference Range Interpretation Comments eGFR (test code = eGFR) 24 [facility] CenterWxvjcxeKWPWGJAMG0057-12-72 13:17:00 Test Item Value Reference Range Interpretation Comments Ca Ion WB (test code = Ca Ion WB) 1.06 1.05-1.25 [facility] CenterWeveizzRPLKPQXUL1436-53-56 13:17:00 Test Item Value Reference Range Interpretation Comments Ca Ion at pH 7.4 WB (test code = Ca Ion 1.03 1.05-1.25 at pH 7.4 WB) [facility] CenterMdqaifoPCPIPAJDP5166-20-08 13:17:00 Test Item Value Reference Range Interpretation Comments Magnesium Lvl (test code = Magnesium 2.7 1.8-2.4 Lvl) [facility] CenterLlpmdimXTIMPHOKP8549-06-14 13:17:00 Test Item Value Reference Range Interpretation Comments Phosphorus (test code = Phosphorus) 3.9 2.5-4.5 [facility] HospitalXgwwhkwDFSIBTFLAD9737-39-03 13:17:00 Test Item Value Reference Range Interpretation Comments Segs (test code = Segs) 54.4 45.0-75.0 [place] 638193-02-22 13:17:00 Test Item Value Reference Range Interpretation Comments Lymphocytes (test code = Lymphocytes) 29.3 20.0-40.0 [place] 638193-02-22 13:17:00 Test Item Value Reference Range Interpretation Comments Monocytes (test code = Monocytes) 10.5 2.0-12.0 [place] 638193-02-22 13:17:00 Test Item Value Reference Range Interpretation Comments Eosinophils (test code = 5.0 See_Comment [A utomated message] The Eosinophils) system which ge nerated this result tra nsmitted reference range : <=4.0. The reference r christiano was not used to int erpret this result as normal/abnormal . [facility] HospitalRxlqagtGDKUJZOWRU1723-55-50 13:17:00 Test Item Value Reference Range Interpretation Comments Basophils (test code = 0.8 See_Comment [Aut omated message] The Basophils) system which ge nerated this result tra nsmitted reference range : <=1.0. The reference r christiano was not used to int erpret this result as normal/abnormal . [facility] HospitalYljgkzwEMBFUPONPM5815-13-85 13:17:00 Test Item Value Reference Range Interpretation Comments Neutrophils # (test code = Neutrophils 4.1 1.5-8.1 #) [place] 638193-02-22 13:17:00 Test Item Value Reference Range Interpretation Comments Lymphocytes # (test code = Lymphocytes 2.2 1.0-5.5 #) [place] 638193-02-22 13:17:00 Test Item Value Reference Range Interpretation Comments Monocytes # (test code 0.8 See_Comment [Aut omated message] The = Monocytes #) system which generated this result tra nsmitted reference range : <=0.8. The reference r christiano was not used to int erpret this result as normal/abnormal . [place] 638193-02-22 13:17:00 Test Item Value Reference Range Interpretation Comments Eosinophils # (test code 0.4 See_Comment [A utomated message] The = Eosinophils #) system whic h generated this result tra nsmitted reference range : <=0.5. The reference r christiano was not used to int erpret this result as normal/abnormal . [place] 638193-02-22 13:17:00 Test Item Value Reference Range Interpretation Comments Basophils # (test code 0.1 See_Comment [Aut omated message] The = Basophils #) system which generated this result tra nsmitted reference range : <=0.2. The reference r christiano was not used to int erpret this result as normal/abnormal . [place] 638193-02-22 13:17:00 Test Item Value Reference Range Interpretation Comments WBC (test code = WBC) 7.5 3.7-10.4 [place] 638193-02-22 13:17:00 Test Item Value Reference Range Interpretation Comments RBC (test code = RBC) 3.30 4.20-5.40 [place] 638193-02-22 13:17:00 Test Item Value Reference Range Interpretation Comments Hgb (test code = Hgb) 9.9 12.0-16.0 [place] 638193-02-22 13:17:00 Test Item Value Reference Range Interpretation Comments Hct (test code = Hct) 30.3 36.0-48.0 [place] 638193-02-22 13:17:00 Test Item Value Reference Range Interpretation Comments MCV (test code = MCV) 91.8 80.0-98.0 [place] [address]-02-22 13:17:00 Test Item Value Reference Range Interpretation Comments MCH (test code = MCH) 30.0 pg 27.0-31.0 [place] [address]-02-22 13:17:00 Test Item Value Reference Range Interpretation Comments MCHC (test code = MCHC) 32.7 32.0-36.0 [place] [address]-02-22 13:17:00 Test Item Value Reference Range Interpretation Comments RDW (test code = RDW) 14.4 11.5-14.5 [place] 638193-02-22 13:17:00 Test Item Value Reference Range Interpretation Comments Platelet (test code = Platelet) 136 133-450 [place] 638193-02-22 13:17:00 Test Item Value Reference Range Interpretation Comments MPV (test code = MPV) 8.7 7.4-10.4 [place] 638193-02-22 13:17:00 Test Item Value Reference Range Interpretation Comments Segs (test code = Segs) 54.4 45.0-75.0 [place] 638193-02-22 13:17:00 Test Item Value Reference Range Interpretation Comments Lymphocytes (test code = Lymphocytes) 29.3 20.0-40.0 [place] [address]-02-22 13:17:00 Test Item Value Reference Range Interpretation Comments Monocytes (test code = Monocytes) 10.5 2.0-12.0 [place] 638193-02-22 13:17:00 Test Item Value Reference Range Interpretation Comments Eosinophils (test code = 5.0 See_Comment [A utomated message] The Eosinophils) system which ge nerated this result tra nsmitted reference range : <=4.0. The reference r christiano was not used to int erpret this result as normal/abnormal . [place] 638193-02-22 13:17:00 Test Item Value Reference Range Interpretation Comments Basophils (test code = 0.8 See_Comment [Aut omated message] The Basophils) system which ge nerated this result tra nsmitted reference range : <=1.0. The reference r christiano was not used to int erpret this result as normal/abnormal . [facility] HospitalCrziunwUGIDNUFXSD4277-28-80 13:17:00 Test Item Value Reference Range Interpretation Comments Neutrophils # (test code = Neutrophils 4.1 1.5-8.1 #) [place] 638193-02-22 13:17:00 Test Item Value Reference Range Interpretation Comments Lymphocytes # (test code = Lymphocytes 2.2 1.0-5.5 #) [place] [address]-02-22 13:17:00 Test Item Value Reference Range Interpretation Comments Monocytes # (test code 0.8 See_Comment [Aut omated message] The = Monocytes #) system which generated this result tra nsmitted reference range : <=0.8. The reference r christiano was not used to int erpret this result as normal/abnormal . [place] 638193-02-22 13:17:00 Test Item Value Reference Range Interpretation Comments Eosinophils # (test code 0.4 See_Comment [A utomated message] The = Eosinophils #) system whic h generated this result tra nsmitted reference range : <=0.5. The reference r christiano was not used to int erpret this result as normal/abnormal . [place] 638193-02-22 13:17:00 Test Item Value Reference Range Interpretation Comments Basophils # (test code 0.1 See_Comment [Aut omated message] The = Basophils #) system which generated this result tra nsmitted reference range : <=0.2. The reference r christiano was not used to int erpret this result as normal/abnormal . [place] 638193-02-22 13:17:00 Test Item Value Reference Range Interpretation Comments WBC (test code = WBC) 7.5 3.7-10.4 [place] 638193-02-22 13:17:00 Test Item Value Reference Range Interpretation Comments RBC (test code = RBC) 3.30 4.20-5.40 [place] [address]-02-22 13:17:00 Test Item Value Reference Range Interpretation Comments Hgb (test code = Hgb) 9.9 12.0-16.0 [place] [address]-02-22 13:17:00 Test Item Value Reference Range Interpretation Comments Hct (test code = Hct) 30.3 36.0-48.0 [place] [address]-02-22 13:17:00 Test Item Value Reference Range Interpretation Comments MCV (test code = MCV) 91.8 80.0-98.0 [place] [address]-02-22 13:17:00 Test Item Value Reference Range Interpretation Comments MCH (test code = MCH) 30.0 pg 27.0-31.0 [place] [address]-02-22 13:17:00 Test Item Value Reference Range Interpretation Comments MCHC (test code = MCHC) 32.7 32.0-36.0 [place] 638193-02-22 13:17:00 Test Item Value Reference Range Interpretation Comments RDW (test code = RDW) 14.4 11.5-14.5 [facility] HospitalHfldmxtTMTAJGOHAM6737-73-81 13:17:00 Test Item Value Reference Range Interpretation Comments Platelet (test code = Platelet) 136 133-450 [facility] HospitalVikvgsiUSXRSTYQRX1907-66-48 13:17:00 Test Item Value Reference Range Interpretation Comments MPV (test code = MPV) 8.7 7.4-10.4 [facility]2023-02-22 13:17:00 Test Item Value Reference Range Interpretation Comments Ca Ion WB (test code = Ca Ion WB) 1.06 1.05-1.25 [facility]PAR[facility]ENTERR[facility] DDJLGCG8260-28-53 13:17:00 Test Item Value Reference Range Interpretation Comments Ca Ion at pH 7.4 WB (test code = Ca Ion 1.03 1.05-1.25 at pH 7.4 WB) [facility] CenterJmggicmLTNKCINJP8509-18-63 15:39:00 Test Item Value Reference Range Interpretation Comments U Amph Scr (test code Negative *NA*(11/21/22 = U Amph Scr) 9:39 AM) [facility] CenterSiynwosNMQUMNJZF0296-27-28 15:39:00 Test Item Value Reference Range Interpretation Comments U Analilia Scr (test code Positive *ABN*(11/21/22 = U Analilia Scr) 9:39 AM) [facility] CenterMekqxjzLXJJWCWOQ5304-78-30 15:39:00 Test Item Value Reference Range Interpretation Comments U Benzodiaz Scr (test Negative *NA*(11/21/22 code = U Benzodiaz Scr) 9:39 AM) [facility] CenterQumnmaxGQROTTKBX3286-92-57 15:39:00 Test Item Value Reference Range Interpretation Comments U Cocaine Scr (test Negative *NA*(11/21/22 code = U Cocaine Scr) 9:39 AM) [facility] CenterTqxzsvfUORHOAHHQ2292-59-02 15:39:00 Test Item Value Reference Range Interpretation Comments U Cannab Scr (test Negative *NA*(11/21/22 code = U Cannab Scr) 9:39 AM) [facility] CenterUbkltovBTVDKNPNN8650-64-30 15:39:00 Test Item Value Reference Range Interpretation Comments U Opiate Scr (test Positive *ABN*(11/21/22 code = U Opiate Scr) 9:39 AM) [id number] 15:39:00 Test Item Value Reference Range Interpretation Comments U Phencyclidine Scr (test Negative code = U Phencyclidine *NA*(11/21/22 9:39 Scr) AM) [facility] [id number] 15:39:00 Test Item Value Reference Range Interpretation Comments UDS Note (test code = See Note (11/21/22 9:39 UDS Note) AM) [facility] [id number] 15:39:00 Test Item Value Reference Range Interpretation Comments Coronavirus (COVID-19) Not Detected (11/21/22 JONATHAN (test code = 9:39 AM) Coronavirus (COVID-19) JONATHAN) [facility] AND [id number] 15:39:00 Test Item Value Reference Range Interpretation Comments UA Color (test code = Light Yellow UA Color) *NA*(11/21/22 9:39 AM) [facility] [id number] 15:39:00 Test Item Value Reference Range Interpretation Comments UA Turbidity (test code = Clear (11/21/22 9:39 UA Turbidity) AM) [facility] [id number] 15:39:00 Test Item Value Reference Range Interpretation Comments UA Spec Grav (test code = UA Spec 1.014 1 Grav) [facility] [id number] 15:39:00 Test Item Value Reference Range Interpretation Comments UA pH (test code = UA pH) 6.0 1 5.0-8.0 [facility] [id number] 15:39:00 Test Item Value Reference Range Interpretation Comments UA Protein (test code = UA Protein) 30 mg/dL [facility] [id number] 15:39:00 Test Item Value Reference Range Interpretation Comments UA Glucose (test code = UA Negative mg/dL Glucose) [facility] [id number] 15:39:00 Test Item Value Reference Range Interpretation Comments UA Ketones (test code = UA Negative mg/dL Ketones) [facility] [id number] 15:39:00 Test Item Value Reference Range Interpretation Comments UA Bili (test code = Negative *NA*(11/21/22 UA Bili) 9:39 AM) [facility] [id number] 15:39:00 Test Item Value Reference Range Interpretation Comments UA Blood (test code = Negative (11/21/22 9:39 UA Blood) AM) [facility] [id number] 15:39:00 Test Item Value Reference Range Interpretation Comments UA Urobilinogen (test code = UA no gt 0.1-1.0 Urobilinogen) [facility] [id number] 15:39:00 Test Item Value Reference Range Interpretation Comments UA Nitrite (test code Negative (11/21/22 9:39 = UA Nitrite) AM) [facility] AND [id number] 15:39:00 Test Item Value Reference Range Interpretation Comments UA Leuk Est (test Negative (11/21/22 9:39 code = UA Leuk Est) AM) [facility] [id number] 15:39:00 Test Item Value Reference Range Interpretation Comments UA Sq Epi (test code = UA Sq Occasional /LPF Epi) [facility] AND [id number] 15:39:00 Test Item Value Reference Range Interpretation Comments UA WBC (test code = no gt See_Comment [Automa sheba message] The UA WBC) system which ge nerated this result transmit sheba reference range : <=5. The reference range was not used to interpr et this result as edy l/abnormal. [facility] [id number] 15:39:00 Test Item Value Reference Range Interpretation Comments UA RBC (test code = no gt See_Comment [Automa sheba message] The UA RBC) system which ge nerated this result transmit sheba reference range : <=2. The reference range was not used to interpr et this result as edy l/abnormal. [id number] 15:39:00 Test Item Value Reference Range Interpretation Comments U Amph Scr (test code Negative *NA*(11/21/22 = U Amph Scr) 9:39 AM) [facility] [id number] 15:39:00 Test Item Value Reference Range Interpretation Comments U Analilia Scr (test code Positive *ABN*(11/21/22 = U Analilia Scr) 9:39 AM) [facility] [id number] 15:39:00 Test Item Value Reference Range Interpretation Comments U Benzodiaz Scr (test Negative *NA*(11/21/22 code = U Benzodiaz Scr) 9:39 AM) [facility] [id number] 15:39:00 Test Item Value Reference Range Interpretation Comments U Cocaine Scr (test Negative *NA*(11/21/22 code = U Cocaine Scr) 9:39 AM) [facility] [id number] 15:39:00 Test Item Value Reference Range Interpretation Comments U Cannab Scr (test Negative *NA*(11/21/22 code = U Cannab Scr) 9:39 AM) [facility] [id number] 15:39:00 Test Item Value Reference Range Interpretation Comments U Opiate Scr (test Positive *ABN*(11/21/22 code = U Opiate Scr) 9:39 AM) [facility] [id number] 15:39:00 Test Item Value Reference Range Interpretation Comments U Phencyclidine Scr (test Negative code = U Phencyclidine *NA*(11/21/22 9:39 Scr) AM) [facility] [id number] 15:39:00 Test Item Value Reference Range Interpretation Comments UDS Note (test code = See Note (11/21/22 9:39 UDS Note) AM) [facility] [id number] 15:39:00 Test Item Value Reference Range Interpretation Comments Coronavirus (COVID-19) Not Detected (11/21/22 JONATHAN (test code = 9:39 AM) Coronavirus (COVID-19) JONATHAN) [facility] [id number] 15:39:00 Test Item Value Reference Range Interpretation Comments UA Color (test code = Light Yellow UA Color) *NA*(11/21/22 9:39 AM) [facility] [id number] 15:39:00 Test Item Value Reference Range Interpretation Comments UA Turbidity (test code = Clear (11/21/22 9:39 UA Turbidity) AM) [facility] [id number] 15:39:00 Test Item Value Reference Range Interpretation Comments UA Spec Grav (test code = UA Spec 1.014 1 Grav) [facility] [id number] 15:39:00 Test Item Value Reference Range Interpretation Comments UA pH (test code = UA pH) 6.0 1 5.0-8.[address] [facility] AND [id number] 15:39:00 Test Item Value Reference Range Interpretation Comments UA Protein (test code = UA Protein) 30 mg/dL [facility] AND [id number] 15:39:00 Test Item Value Reference Range Interpretation Comments UA Glucose (test code = UA Negative mg/dL Glucose) [facility] AND [id number] 15:39:00 Test Item Value Reference Range Interpretation Comments UA Ketones (test code = UA Negative mg/dL Ketones) [facility] AND [id number] 15:39:00 Test Item Value Reference Range Interpretation Comments UA Bili (test code = Negative *NA*(11/21/22 UA Bili) 9:39 AM) [facility] AND [id number] 15:39:00 Test Item Value Reference Range Interpretation Comments UA Blood (test code = Negative (11/21/22 9:39 UA Blood) AM) [facility] AND [id number] 15:39:00 Test Item Value Reference Range Interpretation Comments UA Urobilinogen (test code = UA no gt 0.1-1.0 Urobilinogen) [facility] AND [id number] 15:39:00 Test Item Value Reference Range Interpretation Comments UA Nitrite (test code Negative (11/21/22 9:39 = UA Nitrite) AM) [facility] AND [id number] 15:39:00 Test Item Value Reference Range Interpretation Comments UA Leuk Est (test Negative (11/21/22 9:39 code = UA Leuk Est) AM) [facility] AND [id number] 15:39:00 Test Item Value Reference Range Interpretation Comments UA Sq Epi (test code = UA Sq Occasional /LPF Epi) [facility] AND [id number] 15:39:00 Test Item Value Reference Range Interpretation Comments UA WBC (test code = no gt See_Comment [Automa sheba message] The UA WBC) system which ge nerated this result transmit sheba reference range : <=5. The reference range was not used to interpr et this result as edy l/abnormal. [facility] AND [id number] 15:39:00 Test Item Value Reference Range Interpretation Comments UA RBC (test code = no gt See_Comment [Automa sheba message] The UA RBC) system which ge nerated this result transmit sheba reference range : <=2. The reference range was not used to interpr et this result as edy l/abnormal. [facility] [id number] 15:39:00 Test Item Value Reference Range Interpretation Comments U Amph Scr (test code Negative *NA*(11/21/22 = U Amph Scr) 9:39 AM) [id number] 15:39:00 Test Item Value Reference Range Interpretation Comments U Analilia Scr (test code Positive *ABN*(11/21/22 = U Analilia Scr) 9:39 AM) [facility] [id number] 15:39:00 Test Item Value Reference Range Interpretation Comments U Benzodiaz Scr (test Negative *NA*(11/21/22 code = U Benzodiaz Scr) 9:39 AM) [facility] HospitalLgzodvlEKRLWHWLS0622-09-36 15:39:00 Test Item Value Reference Range Interpretation Comments U Cocaine Scr (test Negative *NA*(11/21/22 code = U Cocaine Scr) 9:39 AM) [facility] [id number] 15:39:00 Test Item Value Reference Range Interpretation Comments U Cannab Scr (test Negative *NA*(11/21/22 code = U Cannab Scr) 9:39 AM) [facility] [id number] 15:39:00 Test Item Value Reference Range Interpretation Comments U Opiate Scr (test Positive *ABN*(11/21/22 code = U Opiate Scr) 9:39 AM) [facility] [id number] 15:39:00 Test Item Value Reference Range Interpretation Comments U Phencyclidine Scr (test Negative code = U Phencyclidine *NA*(11/21/22 9:39 Scr) AM) [facility] H[id number] 15:39:00 Test Item Value Reference Range Interpretation Comments UDS Note (test code = See Note (11/21/22 9:39 UDS Note) AM) [facility] [id number] 15:39:00 Test Item Value Reference Range Interpretation Comments U Amph Scr (test code Negative *NA*(11/21/22 = U Amph Scr) 9:39 AM) [facility] [id number] 15:39:00 Test Item Value Reference Range Interpretation Comments U Analilia Scr (test code Positive *ABN*(11/21/22 = U Analilia Scr) 9:39 AM) [facility] [id number] 15:39:00 Test Item Value Reference Range Interpretation Comments U Benzodiaz Scr (test Negative *NA*(11/21/22 code = U Benzodiaz Scr) 9:39 AM) [facility] [id number] 15:39:00 Test Item Value Reference Range Interpretation Comments U Cocaine Scr (test Negative *NA*(11/21/22 code = U Cocaine Scr) 9:39 AM) [facility] [id number] 15:39:00 Test Item Value Reference Range Interpretation Comments U Cannab Scr (test Negative *NA*(11/21/22 code = U Cannab Scr) 9:39 AM) [facility] [id number] 15:39:00 Test Item Value Reference Range Interpretation Comments U Opiate Scr (test Positive *ABN*(11/21/22 code = U Opiate Scr) 9:39 AM) [facility] [id number] 15:39:00 Test Item Value Reference Range Interpretation Comments U Phencyclidine Scr (test Negative code = U Phencyclidine *NA*(11/21/22 9:39 Scr) AM) [facility] [id number] 15:39:00 Test Item Value Reference Range Interpretation Comments UDS Note (test code = See Note (11/21/22 9:39 UDS Note) AM) [facility] H[id number] 15:39:00 Test Item Value Reference Range Interpretation Comments Coronavirus (COVID-19) Not Detected (11/21/22 JONATHAN (test code = 9:39 AM) Coronavirus (COVID-19) JONATHAN) [facility] H[id number] 15:39:00 Test Item Value Reference Range Interpretation Comments Coronavirus (COVID-19) Not Detected (11/21/22 JONATHAN (test code = 9:39 AM) Coronavirus (COVID-19) JONATHAN) [facility] [id number] 15:39:00 Test Item Value Reference Range Interpretation Comments UA Color (test code = Light Yellow UA Color) *NA*(11/21/22 9:39 AM) [facility] AND [id number] 15:39:00 Test Item Value Reference Range Interpretation Comments UA Turbidity (test code = Clear (11/21/22 9:39 UA Turbidity) AM) [facility] AND [id number] 15:39:00 Test Item Value Reference Range Interpretation Comments UA Spec Grav (test code = UA Spec 1.014 1 Grav) [facility] AND [id number] 15:39:00 Test Item Value Reference Range Interpretation Comments UA pH (test code = UA pH) 6.0 1 5.0-8.[address] [facility] AND [id number] 15:39:00 Test Item Value Reference Range Interpretation Comments UA Protein (test code = UA Protein) 30 mg/dL [facility] AND [id number] 15:39:00 Test Item Value Reference Range Interpretation Comments UA Glucose (test code = UA Negative mg/dL Glucose) [facility] AND [id number] 15:39:00 Test Item Value Reference Range Interpretation Comments UA Ketones (test code = UA Negative mg/dL Ketones) [facility] AND [id number] 15:39:00 Test Item Value Reference Range Interpretation Comments UA Bili (test code = Negative *NA*(11/21/22 UA Bili) 9:39 AM) [facility] AND [id number] 15:39:00 Test Item Value Reference Range Interpretation Comments UA Blood (test code = Negative (11/21/22 9:39 UA Blood) AM) [facility] AND [id number] 15:39:00 Test Item Value Reference Range Interpretation Comments UA Urobilinogen (test code = UA no gt 0.1-1.0 Urobilinogen) [facility] AND [id number] 15:39:00 Test Item Value Reference Range Interpretation Comments UA Nitrite (test code Negative (11/21/22 9:39 = UA Nitrite) AM) [facility] AND [id number] 15:39:00 Test Item Value Reference Range Interpretation Comments UA Leuk Est (test Negative (11/21/22 9:39 code = UA Leuk Est) AM) [facility] [id number] 15:39:00 Test Item Value Reference Range Interpretation Comments UA Sq Epi (test code = UA Sq Occasional /LPF Epi) [facility] [id number] 15:39:00 Test Item Value Reference Range Interpretation Comments UA WBC (test code = no gt See_Comment [Automa sheba message] The UA WBC) system which ge nerated this result transmit sheba reference range : <=5. The reference range was not used to interpr et this result as edy l/abnormal. [facility] AND [id number] 15:39:00 Test Item Value Reference Range Interpretation Comments UA RBC (test code = no gt See_Comment [Automa sheba message] The UA RBC) system which ge nerated this result transmit sheba reference range : <=2. The reference range was not used to interpr et this result as edy l/abnormal. [facility] AND [id number] 15:39:00 Test Item Value Reference Range Interpretation Comments UA Color (test code = Light Yellow UA Color) *NA*(11/21/22 9:39 AM) [facility] [id number] 15:39:00 Test Item Value Reference Range Interpretation Comments UA Turbidity (test code = Clear (11/21/22 9:39 UA Turbidity) AM) [facility] [id number] 15:39:00 Test Item Value Reference Range Interpretation Comments UA Spec Grav (test code = UA Spec 1.014 1 Grav) [facility] [id number] 15:39:00 Test Item Value Reference Range Interpretation Comments UA pH (test code = UA pH) 6.0 1 5.0-8.0 [facility] [id number] 15:39:00 Test Item Value Reference Range Interpretation Comments UA Protein (test code = UA Protein) 30 mg/dL [facility] [id number] 15:39:00 Test Item Value Reference Range Interpretation Comments UA Glucose (test code = UA Negative mg/dL Glucose) [facility] [id number] 15:39:00 Test Item Value Reference Range Interpretation Comments UA Ketones (test code = UA Negative mg/dL Ketones) [facility] [id number] 15:39:00 Test Item Value Reference Range Interpretation Comments UA Bili (test code = Negative *NA*(11/21/22 UA Bili) 9:39 AM) [facility] [id number] 15:39:00 Test Item Value Reference Range Interpretation Comments UA Blood (test code = Negative (11/21/22 9:39 UA Blood) AM) [facility] [id number] 15:39:00 Test Item Value Reference Range Interpretation Comments UA Urobilinogen (test code = UA no gt 0.1-1.0 Urobilinogen) [facility] [id number] 15:39:00 Test Item Value Reference Range Interpretation Comments UA Nitrite (test code Negative (11/21/22 9:39 = UA Nitrite) AM) [facility] [id number] 15:39:00 Test Item Value Reference Range Interpretation Comments UA Leuk Est (test Negative (11/21/22 9:39 code = UA Leuk Est) AM) [facility] [id number] 15:39:00 Test Item Value Reference Range Interpretation Comments UA Sq Epi (test code = UA Sq Occasional /LPF Epi) [facility] [id number] 15:39:00 Test Item Value Reference Range Interpretation Comments UA WBC (test code = no gt See_Comment [Automa sheba message] The UA WBC) system which ge nerated this result transmit sheba reference range : <=5. The reference range was not used to interpr et this result as edy l/abnormal. [facility] AND [id number] 15:39:00 Test Item Value Reference Range Interpretation Comments UA RBC (test code = no gt See_Comment [Automa sheba message] The UA RBC) system which ge nerated this result transmit sheba reference range : <=2. The reference range was not used to interpr et this result as edy l/abnormal. [facility] [id number] 15:39:00 Test Item Value Reference Range Interpretation Comments U Amph Scr (test code Negative *NA*(11/21/22 = U Amph Scr) 9:39 AM) [facility] [id number] 15:39:00 Test Item Value Reference Range Interpretation Comments U Analilia Scr (test code Positive *ABN*(11/21/22 = U Analilia Scr) 9:39 AM) [facility] [id number] 15:39:00 Test Item Value Reference Range Interpretation Comments U Benzodiaz Scr (test Negative *NA*(11/21/22 code = U Benzodiaz Scr) 9:39 AM) [facility] [id number] 15:39:00 Test Item Value Reference Range Interpretation Comments U Cocaine Scr (test Negative *NA*(11/21/22 code = U Cocaine Scr) 9:39 AM) [facility] [id number] 15:39:00 Test Item Value Reference Range Interpretation Comments U Cannab Scr (test Negative *NA*(11/21/22 code = U Cannab Scr) 9:39 AM) [facility] [id number] 15:39:00 Test Item Value Reference Range Interpretation Comments U Opiate Scr (test Positive *ABN*(11/21/22 code = U Opiate Scr) 9:39 AM) [facility] [id number] 15:39:00 Test Item Value Reference Range Interpretation Comments U Phencyclidine Scr (test Negative code = U Phencyclidine *NA*(11/21/22 9:39 Scr) AM) [id number] 15:39:00 Test Item Value Reference Range Interpretation Comments UDS Note (test code = See Note (11/21/22 9:39 UDS Note) AM) [facility] [id number] 15:39:00 Test Item Value Reference Range Interpretation Comments U Amph Scr (test code Negative *NA*(11/21/22 = U Amph Scr) 9:39 AM) [facility] [id number] 15:39:00 Test Item Value Reference Range Interpretation Comments U Analilia Scr (test code Positive *ABN*(11/21/22 = U Analilia Scr) 9:39 AM) [facility] [id number] 15:39:00 Test Item Value Reference Range Interpretation Comments U Benzodiaz Scr (test Negative *NA*(11/21/22 code = U Benzodiaz Scr) 9:39 AM) [facility] [id number] 15:39:00 Test Item Value Reference Range Interpretation Comments U Cocaine Scr (test Negative *NA*(11/21/22 code = U Cocaine Scr) 9:39 AM) [facility] [id number] 15:39:00 Test Item Value Reference Range Interpretation Comments U Cannab Scr (test Negative *NA*(11/21/22 code = U Cannab Scr) 9:39 AM) [facility] [id number] 15:39:00 Test Item Value Reference Range Interpretation Comments U Opiate Scr (test Positive *ABN*(11/21/22 code = U Opiate Scr) 9:39 AM) [facility] [id number] 15:39:00 Test Item Value Reference Range Interpretation Comments U Phencyclidine Scr (test Negative code = U Phencyclidine *NA*(11/21/22 9:39 Scr) AM) [facility] [id number] 15:39:00 Test Item Value Reference Range Interpretation Comments UDS Note (test code = See Note (11/21/22 9:39 UDS Note) AM) [facility] [id number] 15:39:00 Test Item Value Reference Range Interpretation Comments Coronavirus (COVID-19) Not Detected (11/21/22 JONATHAN (test code = 9:39 AM) Coronavirus (COVID-19) JONATHAN) [facility] [id number] 15:39:00 Test Item Value Reference Range Interpretation Comments Coronavirus (COVID-19) Not Detected (11/21/22 JONATHAN (test code = 9:39 AM) Coronavirus (COVID-19) JONATHAN) [facility] [id number] 15:39:00 Test Item Value Reference Range Interpretation Comments UA Color (test code = Light Yellow UA Color) *NA*(11/21/22 9:39 AM) [facility] [id number] 15:39:00 Test Item Value Reference Range Interpretation Comments UA Turbidity (test code = Clear (11/21/22 9:39 UA Turbidity) AM) [facility] [id number] 15:39:00 Test Item Value Reference Range Interpretation Comments UA Spec Grav (test code = UA Spec 1.014 1 Grav) [facility] [id number] 15:39:00 Test Item Value Reference Range Interpretation Comments UA pH (test code = UA pH) 6.0 1 5.0-8.[address] [facility] AND [id number] 15:39:00 Test Item Value Reference Range Interpretation Comments UA Protein (test code = UA Protein) 30 mg/dL [facility] AND [id number] 15:39:00 Test Item Value Reference Range Interpretation Comments UA Glucose (test code = UA Negative mg/dL Glucose) [facility] AND [id number] 15:39:00 Test Item Value Reference Range Interpretation Comments UA Ketones (test code = UA Negative mg/dL Ketones) [facility] AND [id number] 15:39:00 Test Item Value Reference Range Interpretation Comments UA Bili (test code = Negative *NA*(11/21/22 UA Bili) 9:39 AM) [facility] AND [id number] 15:39:00 Test Item Value Reference Range Interpretation Comments UA Blood (test code = Negative (11/21/22 9:39 UA Blood) AM) [facility] AND [id number] 15:39:00 Test Item Value Reference Range Interpretation Comments UA Urobilinogen (test code = UA no gt 0.1-1.0 Urobilinogen) [facility] AND [id number] 15:39:00 Test Item Value Reference Range Interpretation Comments UA Nitrite (test code Negative (11/21/22 9:39 = UA Nitrite) AM) [facility] AND [id number] 15:39:00 Test Item Value Reference Range Interpretation Comments UA Leuk Est (test Negative (11/21/22 9:39 code = UA Leuk Est) AM) [facility] AND [id number] 15:39:00 Test Item Value Reference Range Interpretation Comments UA Sq Epi (test code = UA Sq Occasional /LPF Epi) [facility] AND [id number] 15:39:00 Test Item Value Reference Range Interpretation Comments UA WBC (test code = no gt See_Comment [Automa sheba message] The UA WBC) system which ge nerated this result transmit sheba reference range : <=5. The reference range was not used to interpr et this result as edy l/abnormal. [facility] AND [id number] 15:39:00 Test Item Value Reference Range Interpretation Comments UA RBC (test code = no gt See_Comment [Automa sheba message] The UA RBC) system which ge nerated this result transmit sheba reference range : <=2. The reference range was not used to interpr et this result as edy l/abnormal. [facility] AND [id number] 15:39:00 Test Item Value Reference Range Interpretation Comments UA Color (test code = Light Yellow UA Color) *NA*(11/21/22 9:39 AM) [facility] AND [id number] 15:39:00 Test Item Value Reference Range Interpretation Comments UA Turbidity (test code = Clear (11/21/22 9:39 UA Turbidity) AM) [facility] AND [id number] 15:39:00 Test Item Value Reference Range Interpretation Comments UA Spec Grav (test code = UA Spec 1.014 1 Grav) [facility] AND [id number] 15:39:00 Test Item Value Reference Range Interpretation Comments UA pH (test code = UA pH) 6.0 1 5.0-8.[address] [facility] AND [id number] 15:39:00 Test Item Value Reference Range Interpretation Comments UA Protein (test code = UA Protein) 30 mg/dL [facility] AND [id number] 15:39:00 Test Item Value Reference Range Interpretation Comments UA Glucose (test code = UA Negative mg/dL Glucose) [facility] AND [id number] 15:39:00 Test Item Value Reference Range Interpretation Comments UA Ketones (test code = UA Negative mg/dL Ketones) [facility] AND [id number] 15:39:00 Test Item Value Reference Range Interpretation Comments UA Bili (test code = Negative *NA*(11/21/22 UA Bili) 9:39 AM) [facility] AND [id number] 15:39:00 Test Item Value Reference Range Interpretation Comments UA Blood (test code = Negative (11/21/22 9:39 UA Blood) AM) [facility] AND [id number] 15:39:00 Test Item Value Reference Range Interpretation Comments UA Urobilinogen (test code = UA no gt 0.1-1.0 Urobilinogen) [facility] AND [id number] 15:39:00 Test Item Value Reference Range Interpretation Comments UA Nitrite (test code Negative (11/21/22 9:39 = UA Nitrite) AM) [facility] [id number] 15:39:00 Test Item Value Reference Range Interpretation Comments UA Leuk Est (test Negative (11/21/22 9:39 code = UA Leuk Est) AM) [facility] [id number] 15:39:00 Test Item Value Reference Range Interpretation Comments UA Sq Epi (test code = UA Sq Occasional /LPF Epi) [facility] AND [id number] 15:39:00 Test Item Value Reference Range Interpretation Comments UA WBC (test code = no gt See_Comment [Automa sheba message] The UA WBC) system which ge nerated this result transmit sheba reference range : <=5. The reference range was not used to interpr et this result as edy l/abnormal. [facility] [id number] 15:39:00 Test Item Value Reference Range Interpretation Comments UA RBC (test code = no gt See_Comment [Automa sheba message] The UA RBC) system which ge nerated this result transmit sheba reference range : <=2. The reference range was not used to interpr et this result as edy l/abnormal. [id number] 15:39:00 Test Item Value Reference Range Interpretation Comments U Amph Scr (test code Negative *NA*(11/21/22 = U Amph Scr) 9:39 AM) [facility] [id number] 15:39:00 Test Item Value Reference Range Interpretation Comments U Analilia Scr (test code Positive *ABN*(11/21/22 = U Analilia Scr) 9:39 AM) [facility] [id number] 15:39:00 Test Item Value Reference Range Interpretation Comments U Benzodiaz Scr (test Negative *NA*(11/21/22 code = U Benzodiaz Scr) 9:39 AM) [facility] [id number] 15:39:00 Test Item Value Reference Range Interpretation Comments U Cocaine Scr (test Negative *NA*(11/21/22 code = U Cocaine Scr) 9:39 AM) [facility] [id number] 15:39:00 Test Item Value Reference Range Interpretation Comments U Cannab Scr (test Negative *NA*(11/21/22 code = U Cannab Scr) 9:39 AM) [facility] [id number] 15:39:00 Test Item Value Reference Range Interpretation Comments U Opiate Scr (test Positive *ABN*(11/21/22 code = U Opiate Scr) 9:39 AM) [facility] [id number] 15:39:00 Test Item Value Reference Range Interpretation Comments U Phencyclidine Scr (test Negative code = U Phencyclidine *NA*(11/21/22 9:39 Scr) AM) [facility] [id number] 15:39:00 Test Item Value Reference Range Interpretation Comments UDS Note (test code = See Note (11/21/22 9:39 UDS Note) AM) [facility] [id number] 15:39:00 Test Item Value Reference Range Interpretation Comments U Amph Scr (test code Negative *NA*(11/21/22 = U Amph Scr) 9:39 AM) [facility] [id number] 15:39:00 Test Item Value Reference Range Interpretation Comments U Analilia Scr (test code Positive *ABN*(11/21/22 = U Analilia Scr) 9:39 AM) [facility] [id number] 15:39:00 Test Item Value Reference Range Interpretation Comments U Benzodiaz Scr (test Negative *NA*(11/21/22 code = U Benzodiaz Scr) 9:39 AM) [facility] [id number] 15:39:00 Test Item Value Reference Range Interpretation Comments U Cocaine Scr (test Negative *NA*(11/21/22 code = U Cocaine Scr) 9:39 AM) [facility] [id number] 15:39:00 Test Item Value Reference Range Interpretation Comments U Cannab Scr (test Negative *NA*(11/21/22 code = U Cannab Scr) 9:39 AM) [facility] [id number] 15:39:00 Test Item Value Reference Range Interpretation Comments U Opiate Scr (test Positive *ABN*(11/21/22 code = U Opiate Scr) 9:39 AM) [facility] [id number] 15:39:00 Test Item Value Reference Range Interpretation Comments U Phencyclidine Scr (test Negative code = U Phencyclidine *NA*(11/21/22 9:39 Scr) AM) [facility] [id number] 15:39:00 Test Item Value Reference Range Interpretation Comments UDS Note (test code = See Note (11/21/22 9:39 UDS Note) AM) [facility] [id number] 15:39:00 Test Item Value Reference Range Interpretation Comments Coronavirus (COVID-19) Not Detected (11/21/22 JONATHAN (test code = 9:39 AM) Coronavirus (COVID-19) JONATHAN) [facility] [id number] 15:39:00 Test Item Value Reference Range Interpretation Comments Coronavirus (COVID-19) Not Detected (11/21/22 JONATHAN (test code = 9:39 AM) Coronavirus (COVID-19) JONATHAN) [facility] [id number] 15:39:00 Test Item Value Reference Range Interpretation Comments UA Color (test code = Light Yellow UA Color) *NA*(11/21/22 9:39 AM) [facility] [id number] 15:39:00 Test Item Value Reference Range Interpretation Comments UA Turbidity (test code = Clear (11/21/22 9:39 UA Turbidity) AM) [facility] [id number] 15:39:00 Test Item Value Reference Range Interpretation Comments UA Spec Grav (test code = UA Spec 1.014 1 Grav) [facility] [id number] 15:39:00 Test Item Value Reference Range Interpretation Comments UA pH (test code = UA pH) 6.0 1 5.0-8.0 [facility] [id number] 15:39:00 Test Item Value Reference Range Interpretation Comments UA Protein (test code = UA Protein) 30 mg/dL [facility] [id number] 15:39:00 Test Item Value Reference Range Interpretation Comments UA Glucose (test code = UA Negative mg/dL Glucose) [facility] [id number] 15:39:00 Test Item Value Reference Range Interpretation Comments UA Ketones (test code = UA Negative mg/dL Ketones) [facility] [id number] 15:39:00 Test Item Value Reference Range Interpretation Comments UA Bili (test code = Negative *NA*(11/21/22 UA Bili) 9:39 AM) [facility] [id number] 15:39:00 Test Item Value Reference Range Interpretation Comments UA Blood (test code = Negative (11/21/22 9:39 UA Blood) AM) [facility] [id number] 15:39:00 Test Item Value Reference Range Interpretation Comments UA Urobilinogen (test code = UA no gt 0.1-1.0 Urobilinogen) [facility] [id number] 15:39:00 Test Item Value Reference Range Interpretation Comments UA Nitrite (test code Negative (11/21/22 9:39 = UA Nitrite) AM) [facility] [id number] 15:39:00 Test Item Value Reference Range Interpretation Comments UA Leuk Est (test Negative (11/21/22 9:39 code = UA Leuk Est) AM) [facility] [id number] 15:39:00 Test Item Value Reference Range Interpretation Comments UA Sq Epi (test code = UA Sq Occasional /LPF Epi) [facility] [id number] 15:39:00 Test Item Value Reference Range Interpretation Comments UA WBC (test code = no gt See_Comment [Automa sheba message] The UA WBC) system which ge nerated this result transmit sheba reference range : <=5. The reference range was not used to interpr et this result as edy l/abnormal. [facility] [id number] 15:39:00 Test Item Value Reference Range Interpretation Comments UA RBC (test code = no gt See_Comment [Automa sheba message] The UA RBC) system which ge nerated this result transmit sheba reference range : <=2. The reference range was not used to interpr et this result as edy l/abnormal. [facility] [id number] 15:39:00 Test Item Value Reference Range Interpretation Comments UA Color (test code = Light Yellow UA Color) *NA*(11/21/22 9:39 AM) [facility] [id number] 15:39:00 Test Item Value Reference Range Interpretation Comments UA Turbidity (test code = Clear (11/21/22 9:39 UA Turbidity) AM) [facility] AND [id number] 15:39:00 Test Item Value Reference Range Interpretation Comments UA Spec Grav (test code = UA Spec 1.014 1 Grav) [facility] AND [id number] 15:39:00 Test Item Value Reference Range Interpretation Comments UA pH (test code = UA pH) 6.0 1 5.0-8.[address] [facility] AND [id number] 15:39:00 Test Item Value Reference Range Interpretation Comments UA Protein (test code = UA Protein) 30 mg/dL [facility] AND [id number] 15:39:00 Test Item Value Reference Range Interpretation Comments UA Glucose (test code = UA Negative mg/dL Glucose) [facility] AND [id number] 15:39:00 Test Item Value Reference Range Interpretation Comments UA Ketones (test code = UA Negative mg/dL Ketones) [facility] AND [id number] 15:39:00 Test Item Value Reference Range Interpretation Comments UA Bili (test code = Negative *NA*(11/21/22 UA Bili) 9:39 AM) [facility] AND [id number] 15:39:00 Test Item Value Reference Range Interpretation Comments UA Blood (test code = Negative (11/21/22 9:39 UA Blood) AM) [facility] AND [id number] 15:39:00 Test Item Value Reference Range Interpretation Comments UA Urobilinogen (test code = UA no gt 0.1-1.0 Urobilinogen) [facility] AND [id number] 15:39:00 Test Item Value Reference Range Interpretation Comments UA Nitrite (test code Negative (11/21/22 9:39 = UA Nitrite) AM) [facility] AND [id number] 15:39:00 Test Item Value Reference Range Interpretation Comments UA Leuk Est (test Negative (11/21/22 9:39 code = UA Leuk Est) AM) [facility] AND [id number] 15:39:00 Test Item Value Reference Range Interpretation Comments UA Sq Epi (test code = UA Sq Occasional /LPF Epi) [facility] AND [id number] 15:39:00 Test Item Value Reference Range Interpretation Comments UA WBC (test code = no gt See_Comment [Automa sheba message] The UA WBC) system which ge nerated this result transmit sheba reference range : <=5. The reference range was not used to interpr et this result as edy l/abnormal. [facility] [id number] 15:39:00 Test Item Value Reference Range Interpretation Comments UA RBC (test code = no gt See_Comment [Automa sheba message] The UA RBC) system which ge nerated this result transmit sheba reference range : <=2. The reference range was not used to interpr et this result as edy l/abnormal. [facility] [id number] 15:39:00 Test Item Value Reference Range Interpretation Comments U Amph Scr (test code Negative *NA*(11/21/22 = U Amph Scr) 9:39 AM) [facility] [id number] 15:39:00 Test Item Value Reference Range Interpretation Comments U Analilia Scr (test code Positive *ABN*(11/21/22 = U Analilia Scr) 9:39 AM) [facility] [id number] 15:39:00 Test Item Value Reference Range Interpretation Comments U Benzodiaz Scr (test Negative *NA*(11/21/22 code = U Benzodiaz Scr) 9:39 AM) [facility] [id number] 15:39:00 Test Item Value Reference Range Interpretation Comments U Cocaine Scr (test Negative *NA*(11/21/22 code = U Cocaine Scr) 9:39 AM) [facility] [id number] 15:39:00 Test Item Value Reference Range Interpretation Comments U Cannab Scr (test Negative *NA*(11/21/22 code = U Cannab Scr) 9:39 AM) [facility] [id number] 15:39:00 Test Item Value Reference Range Interpretation Comments U Opiate Scr (test Positive *ABN*(11/21/22 code = U Opiate Scr) 9:39 AM) [facility] [id number] 15:39:00 Test Item Value Reference Range Interpretation Comments U Phencyclidine Scr (test Negative code = U Phencyclidine *NA*(11/21/22 9:39 Scr) AM) [facility] [id number] 15:39:00 Test Item Value Reference Range Interpretation Comments UDS Note (test code = See Note (11/21/22 9:39 UDS Note) AM) [facility] [id number] 15:39:00 Test Item Value Reference Range Interpretation Comments U Amph Scr (test code Negative *NA*(11/21/22 = U Amph Scr) 9:39 AM) [facility] [id number] 15:39:00 Test Item Value Reference Range Interpretation Comments U Analilia Scr (test code Positive *ABN*(11/21/22 = U Analilia Scr) 9:39 AM) [facility] [id number] 15:39:00 Test Item Value Reference Range Interpretation Comments U Benzodiaz Scr (test Negative *NA*(11/21/22 code = U Benzodiaz Scr) 9:39 AM) [facility] [id number] 15:39:00 Test Item Value Reference Range Interpretation Comments U Cocaine Scr (test Negative *NA*(11/21/22 code = U Cocaine Scr) 9:39 AM) [facility] [id number] 15:39:00 Test Item Value Reference Range Interpretation Comments U Cannab Scr (test Negative *NA*(11/21/22 code = U Cannab Scr) 9:39 AM) [facility] [id number] 15:39:00 Test Item Value Reference Range Interpretation Comments U Opiate Scr (test Positive *ABN*(11/21/22 code = U Opiate Scr) 9:39 AM) [facility] [id number] 15:39:00 Test Item Value Reference Range Interpretation Comments U Phencyclidine Scr (test Negative code = U Phencyclidine *NA*(11/21/22 9:39 Scr) AM) [facility] [id number] 15:39:00 Test Item Value Reference Range Interpretation Comments UDS Note (test code = See Note (11/21/22 9:39 UDS Note) AM) [facility] [id number] 15:39:00 Test Item Value Reference Range Interpretation Comments Coronavirus (COVID-19) Not Detected (11/21/22 JONATHAN (test code = 9:39 AM) Coronavirus (COVID-19) JONATHAN) [id number] 15:39:00 Test Item Value Reference Range Interpretation Comments Coronavirus (COVID-19) Not Detected (11/21/22 JONATHAN (test code = 9:39 AM) Coronavirus (COVID-19) JONATHAN) [facility] AND [id number] 15:39:00 Test Item Value Reference Range Interpretation Comments UA Color (test code = Light Yellow UA Color) *NA*(11/21/22 9:39 AM) [facility] [id number] 15:39:00 Test Item Value Reference Range Interpretation Comments UA Turbidity (test code = Clear (11/21/22 9:39 UA Turbidity) AM) [facility] [id number] 15:39:00 Test Item Value Reference Range Interpretation Comments UA Spec Grav (test code = UA Spec 1.014 1 Grav) [facility] AND [id number] 15:39:00 Test Item Value Reference Range Interpretation Comments UA pH (test code = UA pH) 6.0 1 5.0-8.0 [facility] [id number] 15:39:00 Test Item Value Reference Range Interpretation Comments UA Protein (test code = UA Protein) 30 mg/dL [facility] AND [id number] 15:39:00 Test Item Value Reference Range Interpretation Comments UA Glucose (test code = UA Negative mg/dL Glucose) [facility] AND [id number] 15:39:00 Test Item Value Reference Range Interpretation Comments UA Ketones (test code = UA Negative mg/dL Ketones) [facility] [id number] 15:39:00 Test Item Value Reference Range Interpretation Comments UA Bili (test code = Negative *NA*(11/21/22 UA Bili) 9:39 AM) [facility] [id number] 15:39:00 Test Item Value Reference Range Interpretation Comments UA Blood (test code = Negative (11/21/22 9:39 UA Blood) AM) [facility] [id number] 15:39:00 Test Item Value Reference Range Interpretation Comments UA Urobilinogen (test code = UA no gt 0.1-1.0 Urobilinogen) [facility] [id number] 15:39:00 Test Item Value Reference Range Interpretation Comments UA Nitrite (test code Negative (11/21/22 9:39 = UA Nitrite) AM) [facility] [id number] 15:39:00 Test Item Value Reference Range Interpretation Comments UA Leuk Est (test Negative (11/21/22 9:39 code = UA Leuk Est) AM) [facility] [id number] 15:39:00 Test Item Value Reference Range Interpretation Comments UA Sq Epi (test code = UA Sq Occasional /LPF Epi) [facility] [id number] 15:39:00 Test Item Value Reference Range Interpretation Comments UA WBC (test code = no gt See_Comment [Automa sheba message] The UA WBC) system which ge nerated this result transmit sheba reference range : <=5. The reference range was not used to interpr et this result as edy l/abnormal. [facility] [id number] 15:39:00 Test Item Value Reference Range Interpretation Comments UA RBC (test code = no gt See_Comment [Automa sheba message] The UA RBC) system which ge nerated this result transmit sheba reference range : <=2. The reference range was not used to interpr et this result as edy l/abnormal. [facility] [id number] 15:39:00 Test Item Value Reference Range Interpretation Comments UA Color (test code = Light Yellow UA Color) *NA*(11/21/22 9:39 AM) [facility] [id number] 15:39:00 Test Item Value Reference Range Interpretation Comments UA Turbidity (test code = Clear (11/21/22 9:39 UA Turbidity) AM) [facility] AND [id number] 15:39:00 Test Item Value Reference Range Interpretation Comments UA Spec Grav (test code = UA Spec 1.014 1 Grav) [facility] AND [id number] 15:39:00 Test Item Value Reference Range Interpretation Comments UA pH (test code = UA pH) 6.0 1 5.0-8.0 [facility] [id number] 15:39:00 Test Item Value Reference Range Interpretation Comments UA Protein (test code = UA Protein) 30 mg/dL [facility] AND [id number] 15:39:00 Test Item Value Reference Range Interpretation Comments UA Glucose (test code = UA Negative mg/dL Glucose) [facility] AND [id number] 15:39:00 Test Item Value Reference Range Interpretation Comments UA Ketones (test code = UA Negative mg/dL Ketones) [facility] AND [id number] 15:39:00 Test Item Value Reference Range Interpretation Comments UA Bili (test code = Negative *NA*(11/21/22 UA Bili) 9:39 AM) [facility] AND [id number] 15:39:00 Test Item Value Reference Range Interpretation Comments UA Blood (test code = Negative (11/21/22 9:39 UA Blood) AM) [facility] AND [id number] 15:39:00 Test Item Value Reference Range Interpretation Comments UA Urobilinogen (test code = UA no gt 0.1-1.0 Urobilinogen) [facility] AND [id number] 15:39:00 Test Item Value Reference Range Interpretation Comments UA Nitrite (test code Negative (11/21/22 9:39 = UA Nitrite) AM) [facility] AND [id number] 15:39:00 Test Item Value Reference Range Interpretation Comments UA Leuk Est (test Negative (11/21/22 9:39 code = UA Leuk Est) AM) [facility] AND [id number] 15:39:00 Test Item Value Reference Range Interpretation Comments UA Sq Epi (test code = UA Sq Occasional /LPF Epi) [facility] AND [id number] 15:39:00 Test Item Value Reference Range Interpretation Comments UA WBC (test code = no gt See_Comment [Automa sheba message] The UA WBC) system which ge nerated this result transmit sheba reference range : <=5. The reference range was not used to interpr et this result as edy l/abnormal. [facility] [id number] 15:39:00 Test Item Value Reference Range Interpretation Comments UA RBC (test code = no gt See_Comment [Automa sheba message] The UA RBC) system which ge nerated this result transmit sheba reference range : <=2. The reference range was not used to interpr et this result as edy l/abnormal. [facility] [id number] 15:39:00 Test Item Value Reference Range Interpretation Comments U Amph Scr (test code Negative *NA*(11/21/22 = U Amph Scr) 9:39 AM) [facility] [id number] 15:39:00 Test Item Value Reference Range Interpretation Comments U Analilia Scr (test code Positive *ABN*(11/21/22 = U Analilia Scr) 9:39 AM) [facility] [id number] 15:39:00 Test Item Value Reference Range Interpretation Comments U Benzodiaz Scr (test Negative *NA*(11/21/22 code = U Benzodiaz Scr) 9:39 AM) [facility] [id number] 15:39:00 Test Item Value Reference Range Interpretation Comments U Cocaine Scr (test Negative *NA*(11/21/22 code = U Cocaine Scr) 9:39 AM) [facility] [id number] 15:39:00 Test Item Value Reference Range Interpretation Comments U Cannab Scr (test Negative *NA*(11/21/22 code = U Cannab Scr) 9:39 AM) [facility] [id number] 15:39:00 Test Item Value Reference Range Interpretation Comments U Opiate Scr (test Positive *ABN*(11/21/22 code = U Opiate Scr) 9:39 AM) [facility] [id number] 15:39:00 Test Item Value Reference Range Interpretation Comments U Phencyclidine Scr (test Negative code = U Phencyclidine *NA*(11/21/22 9:39 Scr) AM) [facility] [id number] 15:39:00 Test Item Value Reference Range Interpretation Comments UDS Note (test code = See Note (11/21/22 9:39 UDS Note) AM) [facility] [id number] 15:39:00 Test Item Value Reference Range Interpretation Comments U Amph Scr (test code Negative *NA*(11/21/22 = U Amph Scr) 9:39 AM) [facility] [id number] 15:39:00 Test Item Value Reference Range Interpretation Comments U Analilia Scr (test code Positive *ABN*(11/21/22 = U Analilia Scr) 9:39 AM) [facility] [id number] 15:39:00 Test Item Value Reference Range Interpretation Comments U Benzodiaz Scr (test Negative *NA*(11/21/22 code = U Benzodiaz Scr) 9:39 AM) [facility] [id number] 15:39:00 Test Item Value Reference Range Interpretation Comments U Cocaine Scr (test Negative *NA*(11/21/22 code = U Cocaine Scr) 9:39 AM) [facility] [id number] 15:39:00 Test Item Value Reference Range Interpretation Comments U Cannab Scr (test Negative *NA*(11/21/22 code = U Cannab Scr) 9:39 AM) [facility] [id number] 15:39:00 Test Item Value Reference Range Interpretation Comments U Opiate Scr (test Positive *ABN*(11/21/22 code = U Opiate Scr) 9:39 AM) [facility] [id number] 15:39:00 Test Item Value Reference Range Interpretation Comments U Phencyclidine Scr (test Negative code = U Phencyclidine *NA*(11/21/22 9:39 Scr) AM) [facility] [id number] 15:39:00 Test Item Value Reference Range Interpretation Comments UDS Note (test code = See Note (11/21/22 9:39 UDS Note) AM) [facility] [id number] 15:39:00 Test Item Value Reference Range Interpretation Comments Coronavirus (COVID-19) Not Detected (11/21/22 JONATHAN (test code = 9:39 AM) Coronavirus (COVID-19) JONATHAN) [facility] [id number] 15:39:00 Test Item Value Reference Range Interpretation Comments Coronavirus (COVID-19) Not Detected (11/21/22 JONATHAN (test code = 9:39 AM) Coronavirus (COVID-19) JONATHAN) [facility] AND [id number] 15:39:00 Test Item Value Reference Range Interpretation Comments UA Color (test code = Light Yellow UA Color) *NA*(11/21/22 9:39 AM) [facility] [id number] 15:39:00 Test Item Value Reference Range Interpretation Comments UA Turbidity (test code = Clear (11/21/22 9:39 UA Turbidity) AM) [facility] AND [id number] 15:39:00 Test Item Value Reference Range Interpretation Comments UA Spec Grav (test code = UA Spec 1.014 1 Grav) [facility] AND [id number] 15:39:00 Test Item Value Reference Range Interpretation Comments UA pH (test code = UA pH) 6.0 1 5.0-8.[address] [facility] AND [id number] 15:39:00 Test Item Value Reference Range Interpretation Comments UA Protein (test code = UA Protein) 30 mg/dL [facility] AND [id number] 15:39:00 Test Item Value Reference Range Interpretation Comments UA Glucose (test code = UA Negative mg/dL Glucose) [facility] AND [id number] 15:39:00 Test Item Value Reference Range Interpretation Comments UA Ketones (test code = UA Negative mg/dL Ketones) [facility] AND [id number] 15:39:00 Test Item Value Reference Range Interpretation Comments UA Bili (test code = Negative *NA*(11/21/22 UA Bili) 9:39 AM) [facility] AND [id number] 15:39:00 Test Item Value Reference Range Interpretation Comments UA Blood (test code = Negative (11/21/22 9:39 UA Blood) AM) [facility] AND [id number] 15:39:00 Test Item Value Reference Range Interpretation Comments UA Urobilinogen (test code = UA no gt 0.1-1.0 Urobilinogen) [facility] AND [id number] 15:39:00 Test Item Value Reference Range Interpretation Comments UA Nitrite (test code Negative (11/21/22 9:39 = UA Nitrite) AM) [facility] AND [id number] 15:39:00 Test Item Value Reference Range Interpretation Comments UA Leuk Est (test Negative (11/21/22 9:39 code = UA Leuk Est) AM) [facility] AND [id number] 15:39:00 Test Item Value Reference Range Interpretation Comments UA Sq Epi (test code = UA Sq Occasional /LPF Epi) [facility] AND [id number] 15:39:00 Test Item Value Reference Range Interpretation Comments UA WBC (test code = no gt See_Comment [Automa sheba message] The UA WBC) system which ge nerated this result transmit sheba reference range : <=5. The reference range was not used to interpr et this result as edy l/abnormal. [facility] [id number] 15:39:00 Test Item Value Reference Range Interpretation Comments UA RBC (test code = no gt See_Comment [Automa sheba message] The UA RBC) system which ge nerated this result transmit sehba reference range : <=2. The reference range was not used to interpr et this result as edy l/abnormal. [facility] AND [id number] 15:39:00 Test Item Value Reference Range Interpretation Comments UA Color (test code = Light Yellow UA Color) *NA*(11/21/22 9:39 AM) [facility] [id number] 15:39:00 Test Item Value Reference Range Interpretation Comments UA Turbidity (test code = Clear (11/21/22 9:39 UA Turbidity) AM) [facility] [id number] 15:39:00 Test Item Value Reference Range Interpretation Comments UA Spec Grav (test code = UA Spec 1.014 1 Grav) [facility] [id number] 15:39:00 Test Item Value Reference Range Interpretation Comments UA pH (test code = UA pH) 6.0 1 5.0-8.0 [facility] [id number] 15:39:00 Test Item Value Reference Range Interpretation Comments UA Protein (test code = UA Protein) 30 mg/dL [facility] [id number] 15:39:00 Test Item Value Reference Range Interpretation Comments UA Glucose (test code = UA Negative mg/dL Glucose) [facility] [id number] 15:39:00 Test Item Value Reference Range Interpretation Comments UA Ketones (test code = UA Negative mg/dL Ketones) [facility] [id number] 15:39:00 Test Item Value Reference Range Interpretation Comments UA Bili (test code = Negative *NA*(11/21/22 UA Bili) 9:39 AM) [facility] AND [id number] 15:39:00 Test Item Value Reference Range Interpretation Comments UA Blood (test code = Negative (11/21/22 9:39 UA Blood) AM) [facility] AND [id number] 15:39:00 Test Item Value Reference Range Interpretation Comments UA Urobilinogen (test code = UA no gt 0.1-1.0 Urobilinogen) [facility] AND [id number] 15:39:00 Test Item Value Reference Range Interpretation Comments UA Nitrite (test code Negative (11/21/22 9:39 = UA Nitrite) AM) [facility] AND [id number] 15:39:00 Test Item Value Reference Range Interpretation Comments UA Leuk Est (test Negative (11/21/22 9:39 code = UA Leuk Est) AM) [facility] AND [id number] 15:39:00 Test Item Value Reference Range Interpretation Comments UA Sq Epi (test code = UA Sq Occasional /LPF Epi) [facility] AND [id number] 15:39:00 Test Item Value Reference Range Interpretation Comments UA WBC (test code = no gt See_Comment [Automa sheba message] The UA WBC) system which ge nerated this result transmit sheba reference range : <=5. The reference range was not used to interpr et this result as edy l/abnormal. [facility] [id number] 15:39:00 Test Item Value Reference Range Interpretation Comments UA RBC (test code = no gt See_Comment [Automa sheba message] The UA RBC) system which ge nerated this result transmit sheba reference range : <=2. The reference range was not used to interpr et this result as edy l/abnormal. [id number] 15:39:00 Test Item Value Reference Range Interpretation Comments U Amph Scr (test code Negative *NA*(11/21/22 = U Amph Scr) 9:39 AM) [facility] [id number] 15:39:00 Test Item Value Reference Range Interpretation Comments U Analilia Scr (test code Positive *ABN*(11/21/22 = U Analilia Scr) 9:39 AM) [facility] [id number] 15:39:00 Test Item Value Reference Range Interpretation Comments U Benzodiaz Scr (test Negative *NA*(11/21/22 code = U Benzodiaz Scr) 9:39 AM) [facility] [id number] 15:39:00 Test Item Value Reference Range Interpretation Comments U Cocaine Scr (test Negative *NA*(11/21/22 code = U Cocaine Scr) 9:39 AM) [facility] [id number] 15:39:00 Test Item Value Reference Range Interpretation Comments U Cannab Scr (test Negative *NA*(11/21/22 code = U Cannab Scr) 9:39 AM) [facility] [id number] 15:39:00 Test Item Value Reference Range Interpretation Comments U Opiate Scr (test Positive *ABN*(11/21/22 code = U Opiate Scr) 9:39 AM) [facility] [id number] 15:39:00 Test Item Value Reference Range Interpretation Comments U Phencyclidine Scr (test Negative code = U Phencyclidine *NA*(11/21/22 9:39 Scr) AM) [facility] [id number] 15:39:00 Test Item Value Reference Range Interpretation Comments UDS Note (test code = See Note (11/21/22 9:39 UDS Note) AM) [facility] [id number] 15:39:00 Test Item Value Reference Range Interpretation Comments U Amph Scr (test code Negative *NA*(11/21/22 = U Amph Scr) 9:39 AM) [facility] [id number] 15:39:00 Test Item Value Reference Range Interpretation Comments U Analilia Scr (test code Positive *ABN*(11/21/22 = U Analilia Scr) 9:39 AM) [facility] [id number] 15:39:00 Test Item Value Reference Range Interpretation Comments U Benzodiaz Scr (test Negative *NA*(11/21/22 code = U Benzodiaz Scr) 9:39 AM) [facility] [id number] 15:39:00 Test Item Value Reference Range Interpretation Comments U Cocaine Scr (test Negative *NA*(11/21/22 code = U Cocaine Scr) 9:39 AM) [facility] [id number] 15:39:00 Test Item Value Reference Range Interpretation Comments U Cannab Scr (test Negative *NA*(11/21/22 code = U Cannab Scr) 9:39 AM) [facility] [id number] 15:39:00 Test Item Value Reference Range Interpretation Comments U Opiate Scr (test Positive *ABN*(11/21/22 code = U Opiate Scr) 9:39 AM) [facility] [id number] 15:39:00 Test Item Value Reference Range Interpretation Comments U Phencyclidine Scr (test Negative code = U Phencyclidine *NA*(11/21/22 9:39 Scr) AM) [facility] [id number] 15:39:00 Test Item Value Reference Range Interpretation Comments UDS Note (test code = See Note (11/21/22 9:39 UDS Note) AM) [facility] [id number] 15:39:00 Test Item Value Reference Range Interpretation Comments Coronavirus (COVID-19) Not Detected (11/21/22 JONATHAN (test code = 9:39 AM) Coronavirus (COVID-19) JONATHAN) [facility] [id number] 15:39:00 Test Item Value Reference Range Interpretation Comments Coronavirus (COVID-19) Not Detected (11/21/22 JONATHAN (test code = 9:39 AM) Coronavirus (COVID-19) JONATHAN) [facility] [id number] 15:39:00 Test Item Value Reference Range Interpretation Comments UA Color (test code = Light Yellow UA Color) *NA*(11/21/22 9:39 AM) [facility] [id number] 15:39:00 Test Item Value Reference Range Interpretation Comments UA Turbidity (test code = Clear (11/21/22 9:39 UA Turbidity) AM) [facility] [id number] 15:39:00 Test Item Value Reference Range Interpretation Comments UA Spec Grav (test code = UA Spec 1.014 1 Grav) [facility] [id number] 15:39:00 Test Item Value Reference Range Interpretation Comments UA pH (test code = UA pH) 6.0 1 5.0-8.0 [facility] [id number] 15:39:00 Test Item Value Reference Range Interpretation Comments UA Protein (test code = UA Protein) 30 mg/dL [facility] [id number] 15:39:00 Test Item Value Reference Range Interpretation Comments UA Glucose (test code = UA Negative mg/dL Glucose) [facility] AND [id number] 15:39:00 Test Item Value Reference Range Interpretation Comments UA Ketones (test code = UA Negative mg/dL Ketones) [facility] AND [id number] 15:39:00 Test Item Value Reference Range Interpretation Comments UA Bili (test code = Negative *NA*(11/21/22 UA Bili) 9:39 AM) [facility] AND [id number] 15:39:00 Test Item Value Reference Range Interpretation Comments UA Blood (test code = Negative (11/21/22 9:39 UA Blood) AM) [facility] AND [id number] 15:39:00 Test Item Value Reference Range Interpretation Comments UA Urobilinogen (test code = UA no gt 0.1-1.0 Urobilinogen) [facility] AND [id number] 15:39:00 Test Item Value Reference Range Interpretation Comments UA Nitrite (test code Negative (11/21/22 9:39 = UA Nitrite) AM) [facility] AND [id number] 15:39:00 Test Item Value Reference Range Interpretation Comments UA Leuk Est (test Negative (11/21/22 9:39 code = UA Leuk Est) AM) [facility] AND [id number] 15:39:00 Test Item Value Reference Range Interpretation Comments UA Sq Epi (test code = UA Sq Occasional /LPF Epi) [facility] AND [id number] 15:39:00 Test Item Value Reference Range Interpretation Comments UA WBC (test code = no gt See_Comment [Automa sheba message] The UA WBC) system which ge nerated this result transmit sheba reference range : <=5. The reference range was not used to interpr et this result as edy l/abnormal. [facility] [id number] 15:39:00 Test Item Value Reference Range Interpretation Comments UA RBC (test code = no gt See_Comment [Automa sheba message] The UA RBC) system which ge nerated this result transmit sheba reference range : <=2. The reference range was not used to interpr et this result as edy l/abnormal. [facility] AND [id number] 15:39:00 Test Item Value Reference Range Interpretation Comments UA Color (test code = Light Yellow UA Color) *NA*(11/21/22 9:39 AM) [facility] AND [id number] 15:39:00 Test Item Value Reference Range Interpretation Comments UA Turbidity (test code = Clear (11/21/22 9:39 UA Turbidity) AM) [facility] AND [id number] 15:39:00 Test Item Value Reference Range Interpretation Comments UA Spec Grav (test code = UA Spec 1.014 1 Grav) [facility] AND [id number] 15:39:00 Test Item Value Reference Range Interpretation Comments UA pH (test code = UA pH) 6.0 1 5.0-8.[address] [facility] AND [id number] 15:39:00 Test Item Value Reference Range Interpretation Comments UA Protein (test code = UA Protein) 30 mg/dL [facility] AND [id number] 15:39:00 Test Item Value Reference Range Interpretation Comments UA Glucose (test code = UA Negative mg/dL Glucose) [facility] AND [id number] 15:39:00 Test Item Value Reference Range Interpretation Comments UA Ketones (test code = UA Negative mg/dL Ketones) [facility] AND [id number] 15:39:00 Test Item Value Reference Range Interpretation Comments UA Bili (test code = Negative *NA*(11/21/22 UA Bili) 9:39 AM) [facility] AND [id number] 15:39:00 Test Item Value Reference Range Interpretation Comments UA Blood (test code = Negative (11/21/22 9:39 UA Blood) AM) [facility] AND [id number] 15:39:00 Test Item Value Reference Range Interpretation Comments UA Urobilinogen (test code = UA no gt 0.1-1.0 Urobilinogen) [facility] AND [id number] 15:39:00 Test Item Value Reference Range Interpretation Comments UA Nitrite (test code Negative (11/21/22 9:39 = UA Nitrite) AM) [facility] AND [id number] 15:39:00 Test Item Value Reference Range Interpretation Comments UA Leuk Est (test Negative (11/21/22 9:39 code = UA Leuk Est) AM) [facility] [id number] 15:39:00 Test Item Value Reference Range Interpretation Comments UA Sq Epi (test code = UA Sq Occasional /LPF Epi) [facility] [id number] 15:39:00 Test Item Value Reference Range Interpretation Comments UA WBC (test code = no gt See_Comment [Automa sheba message] The UA WBC) system which ge nerated this result transmit sheba reference range : <=5. The reference range was not used to interpr et this result as edy l/abnormal. [facility] AND [id number] 15:39:00 Test Item Value Reference Range Interpretation Comments UA RBC (test code = no gt See_Comment [Automa sheba message] The UA RBC) system which ge nerated this result transmit sheba reference range : <=2. The reference range was not used to interpr et this result as edy l/abnormal. [facility] [id number] 15:39:00 Test Item Value Reference Range Interpretation Comments U Amph Scr (test code Negative *NA*(11/21/22 = U Amph Scr) 9:39 AM) [facility] [id number] 15:39:00 Test Item Value Reference Range Interpretation Comments U Analilia Scr (test code Positive *ABN*(11/21/22 = U Analilia Scr) 9:39 AM) [facility] [id number] 15:39:00 Test Item Value Reference Range Interpretation Comments U Benzodiaz Scr (test Negative *NA*(11/21/22 code = U Benzodiaz Scr) 9:39 AM) [facility] [id number] 15:39:00 Test Item Value Reference Range Interpretation Comments U Cocaine Scr (test Negative *NA*(11/21/22 code = U Cocaine Scr) 9:39 AM) [facility] [id number] 15:39:00 Test Item Value Reference Range Interpretation Comments U Cannab Scr (test Negative *NA*(11/21/22 code = U Cannab Scr) 9:39 AM) [facility] [id number] 15:39:00 Test Item Value Reference Range Interpretation Comments U Opiate Scr (test Positive *ABN*(11/21/22 code = U Opiate Scr) 9:39 AM) [facility] [id number] 15:39:00 Test Item Value Reference Range Interpretation Comments U Phencyclidine Scr (test Negative code = U Phencyclidine *NA*(11/21/22 9:39 Scr) AM) [facility] [id number] 15:39:00 Test Item Value Reference Range Interpretation Comments UDS Note (test code = See Note (11/21/22 9:39 UDS Note) AM) [facility] [id number] 15:39:00 Test Item Value Reference Range Interpretation Comments U Amph Scr (test code Negative *NA*(11/21/22 = U Amph Scr) 9:39 AM) [facility] [id number] 15:39:00 Test Item Value Reference Range Interpretation Comments U Analilia Scr (test code Positive *ABN*(11/21/22 = U Analilia Scr) 9:39 AM) [facility] [id number] 15:39:00 Test Item Value Reference Range Interpretation Comments U Benzodiaz Scr (test Negative *NA*(11/21/22 code = U Benzodiaz Scr) 9:39 AM) [facility] [id number] 15:39:00 Test Item Value Reference Range Interpretation Comments U Cocaine Scr (test Negative *NA*(11/21/22 code = U Cocaine Scr) 9:39 AM) [facility] [id number] 15:39:00 Test Item Value Reference Range Interpretation Comments U Cannab Scr (test Negative *NA*(11/21/22 code = U Cannab Scr) 9:39 AM) [facility] [id number] 15:39:00 Test Item Value Reference Range Interpretation Comments U Opiate Scr (test Positive *ABN*(11/21/22 code = U Opiate Scr) 9:39 AM) [facility] [id number] 15:39:00 Test Item Value Reference Range Interpretation Comments U Phencyclidine Scr (test Negative code = U Phencyclidine *NA*(11/21/22 9:39 Scr) AM) [facility] [id number] 15:39:00 Test Item Value Reference Range Interpretation Comments UDS Note (test code = See Note (11/21/22 9:39 UDS Note) AM) [id number] 15:39:00 Test Item Value Reference Range Interpretation Comments Coronavirus (COVID-19) Not Detected (11/21/22 JONATHAN (test code = 9:39 AM) Coronavirus (COVID-19) JONATHAN) [facility] [id number] 15:39:00 Test Item Value Reference Range Interpretation Comments Coronavirus (COVID-19) Not Detected (11/21/22 JONATHAN (test code = 9:39 AM) Coronavirus (COVID-19) JONATHAN) [facility] AND [id number] 15:39:00 Test Item Value Reference Range Interpretation Comments UA Color (test code = Light Yellow UA Color) *NA*(11/21/22 9:39 AM) [facility] AND [id number] 15:39:00 Test Item Value Reference Range Interpretation Comments UA Turbidity (test code = Clear (11/21/22 9:39 UA Turbidity) AM) [facility] AND [id number] 15:39:00 Test Item Value Reference Range Interpretation Comments UA Spec Grav (test code = UA Spec 1.014 1 Grav) [facility] AND [id number] 15:39:00 Test Item Value Reference Range Interpretation Comments UA pH (test code = UA pH) 6.0 1 5.0-8.0 [facility] AND [id number] 15:39:00 Test Item Value Reference Range Interpretation Comments UA Protein (test code = UA Protein) 30 mg/dL [facility] AND [id number] 15:39:00 Test Item Value Reference Range Interpretation Comments UA Glucose (test code = UA Negative mg/dL Glucose) [facility] [id number] 15:39:00 Test Item Value Reference Range Interpretation Comments UA Ketones (test code = UA Negative mg/dL Ketones) [facility] [id number] 15:39:00 Test Item Value Reference Range Interpretation Comments UA Bili (test code = Negative *NA*(11/21/22 UA Bili) 9:39 AM) [facility] [id number] 15:39:00 Test Item Value Reference Range Interpretation Comments UA Blood (test code = Negative (11/21/22 9:39 UA Blood) AM) [facility] AND [id number] 15:39:00 Test Item Value Reference Range Interpretation Comments UA Urobilinogen (test code = UA no gt 0.1-1.0 Urobilinogen) [facility] AND [id number] 15:39:00 Test Item Value Reference Range Interpretation Comments UA Nitrite (test code Negative (11/21/22 9:39 = UA Nitrite) AM) [facility] AND [id number] 15:39:00 Test Item Value Reference Range Interpretation Comments UA Leuk Est (test Negative (11/21/22 9:39 code = UA Leuk Est) AM) [facility] AND [id number] 15:39:00 Test Item Value Reference Range Interpretation Comments UA Sq Epi (test code = UA Sq Occasional /LPF Epi) [facility] [id number] 15:39:00 Test Item Value Reference Range Interpretation Comments UA WBC (test code = no gt See_Comment [Automa sheba message] The UA WBC) system which ge nerated this result transmit sheba reference range : <=5. The reference range was not used to interpr et this result as edy l/abnormal. [facility] AND [id number] 15:39:00 Test Item Value Reference Range Interpretation Comments UA RBC (test code = no gt See_Comment [Automa sheba message] The UA RBC) system which ge nerated this result transmit sheba reference range : <=2. The reference range was not used to interpr et this result as edy l/abnormal. [facility] AND [id number] 15:39:00 Test Item Value Reference Range Interpretation Comments UA Color (test code = Light Yellow UA Color) *NA*(11/21/22 9:39 AM) [facility] [id number] 15:39:00 Test Item Value Reference Range Interpretation Comments UA Turbidity (test code = Clear (11/21/22 9:39 UA Turbidity) AM) [facility] [id number] 15:39:00 Test Item Value Reference Range Interpretation Comments UA Spec Grav (test code = UA Spec 1.014 1 Grav) [facility] AND [id number] 15:39:00 Test Item Value Reference Range Interpretation Comments UA pH (test code = UA pH) 6.0 1 5.0-8.[address] [facility] AND [id number] 15:39:00 Test Item Value Reference Range Interpretation Comments UA Protein (test code = UA Protein) 30 mg/dL [facility] AND [id number] 15:39:00 Test Item Value Reference Range Interpretation Comments UA Glucose (test code = UA Negative mg/dL Glucose) [facility] AND [id number] 15:39:00 Test Item Value Reference Range Interpretation Comments UA Ketones (test code = UA Negative mg/dL Ketones) [facility] AND [id number] 15:39:00 Test Item Value Reference Range Interpretation Comments UA Bili (test code = Negative *NA*(11/21/22 UA Bili) 9:39 AM) [facility] AND [id number] 15:39:00 Test Item Value Reference Range Interpretation Comments UA Blood (test code = Negative (11/21/22 9:39 UA Blood) AM) [facility] AND [id number] 15:39:00 Test Item Value Reference Range Interpretation Comments UA Urobilinogen (test code = UA no gt 0.1-1.0 Urobilinogen) [facility] AND [id number] 15:39:00 Test Item Value Reference Range Interpretation Comments UA Nitrite (test code Negative (11/21/22 9:39 = UA Nitrite) AM) [facility] AND [id number] 15:39:00 Test Item Value Reference Range Interpretation Comments UA Leuk Est (test Negative (11/21/22 9:39 code = UA Leuk Est) AM) [facility] AND [id number] 15:39:00 Test Item Value Reference Range Interpretation Comments UA Sq Epi (test code = UA Sq Occasional /LPF Epi) [facility] AND [id number] 15:39:00 Test Item Value Reference Range Interpretation Comments UA WBC (test code = no gt See_Comment [Automa sheba message] The UA WBC) system which ge nerated this result transmit sheba reference range : <=5. The reference range was not used to interpr et this result as edy l/abnormal. [facility] [id number] 15:39:00 Test Item Value Reference Range Interpretation Comments UA RBC (test code = no gt See_Comment [Automa sheba message] The UA RBC) system which ge nerated this result transmit sheba reference range : <=2. The reference range was not used to interpr et this result as edy l/abnormal. [facility] [id number] 12:50:00 Test Item Value Reference Range Interpretation Comments ABO/Rh (test code = ABO/Rh) O POS [facility] [id number] 12:50:00 Test Item Value Reference Range Interpretation Comments Antibody Scrn (test Negative (11/21/22 6:50 code = Antibody Scrn) AM) [facility]KtsrukzAKTTHXUQR3988-94-98 12:50:00 Test Item Value Reference Range Interpretation Comments Ethanol Lvl (test code = Ethanol Lvl) no gt [facility] CenterMkxjnosLIUGDPWAF4528-06-14 12:50:00 Test Item Value Reference Range Interpretation Comments Etoh (%) (test code = Etoh (%)) no gt [facility] CenterGjpkkvaAARKWWRKF3079-45-53 12:50:00 Test Item Value Reference Range Interpretation Comments Lactic Acid Lvl (test code = Lactic 0.7 0.5-2.2 Acid Lvl) [facility] CenterOoazgciJPZEMBONM2239-91-38 12:50:00 Test Item Value Reference Range Interpretation Comments Total Protein (test code = Total 6.1 6.4-8.4 Protein) [facility] CenterRcmdlbxRDDLKZWGQ9547-15-80 12:50:00 Test Item Value Reference Range Interpretation Comments Albumin Lvl (test code = Albumin Lvl) 2.9 3.5-5.0 [facility] CenterArejyezARZTJIRRP7028-04-28 12:50:00 Test Item Value Reference Range Interpretation Comments Globulin (test code = Globulin) 3.2 2.7-4.2 [facility] CenterNupxkmbNKXYIKKQB7173-03-37 12:50:00 Test Item Value Reference Range Interpretation Comments A/G Ratio (test code = A/G Ratio) 0.9 1 0.7-1.6 [facility] CenterMtmasnjKRWHCFOOE5933-59-77 12:50:00 Test Item Value Reference Range Interpretation Comments ALT (test code = ALT) 16 See_Comment [Auto mated message] The system which ge nerated this result transmit sheba reference range : <=65. The reference range was not used to interpr et this result as edy l/abnormal. [facility] ErsdwvuWMIWAHBCU9070-28-32 12:50:00 Test Item Value Reference Range Interpretation Comments AST (test code = AST) 15 See_Comment [Auto mated message] The system which ge nerated this result transmit sheba reference range : <=37. The reference range was not used to interpr et this result as edy l/abnormal. [facility] WklojbvEQHAZLXST7881-40-12 12:50:00 Test Item Value Reference Range Interpretation Comments Alk Phos (test code = Alk Phos) 96 39-136 [facility] HospitalXlelwlqFSHJGOAOB5440-25-80 12:50:00 Test Item Value Reference Range Interpretation Comments Bili Total (test code = Bili Total) 0.2 0.2-1.3 [facility] HospitalUvjfhzkVPNGLYNTH9937-32-99 12:50:00 Test Item Value Reference Range Interpretation Comments Bili Direct (test code no gt See_Comment [Aut omated message] The = Bili Direct) system which generated this result tra nsmitted reference range : <=0.3. The reference r christiano was not used to int erpret this result as edy l/abnormal. [facility] HospitalFahxmanUIGYLIIKM1828-84-53 12:50:00 Test Item Value Reference Range Interpretation Comments Bili Indirect Unable to See_Comment [Automated (test code = Bili Calculate message] T he system Indirect) which generated this result transmitted reference range : <=1.0. The reference range was not used to interpret this result as normal/abnormal . [facility] ZfkgnmsQKIDPAPVQ6142-80-48 12:50:00 Test Item Value Reference Range Interpretation Comments HS Troponin I (test code = HS Troponin 15 I) [facility] HospitalPnobjjlHICEETLKR5987-55-90 12:50:00 Test Item Value Reference Range Interpretation Comments pH Justin (test code = pH Justin) 7.35 1 7.28-7.42 [facility] HospitalWggolhrTVXTXICPA0552-04-61 12:50:00 Test Item Value Reference Range Interpretation Comments pCO2 Justin (test code = pCO2 Justin) 55 38-52 [facility] HospitalQqpbomnMZTNZQHGA0533-44-80 12:50:00 Test Item Value Reference Range Interpretation Comments pO2 Justin (test code = pO2 Justin) 43 20-49 [place] 711743-02-21 12:50:00 Test Item Value Reference Range Interpretation Comments HCO3 Justin (test code = HCO3 Justin) 30 22-26 [place] [address]-02-21 12:50:00 Test Item Value Reference Range Interpretation Comments BE Justin (test code = BE Justin) 3 -2-2 [place] 711743-02-21 12:50:00 Test Item Value Reference Range Interpretation Comments O2 Sat Justin (calc) (test code = O2 Sat 75.9 40.0-70.0 Justin (calc)) [place] 711743-02-21 12:50:00 Test Item Value Reference Range Interpretation Comments Temp Justin (test code = Temp Justin) 37.0 [place] 638193-02-21 12:50:00 Test Item Value Reference Range Interpretation Comments ACT (TEG) Rapid (test code = ACT (TEG) 113 s 86-118 Rapid) [place] 638193-02-21 12:50:00 Test Item Value Reference Range Interpretation Comments Split Point Rapid (test code = Split 0.6 min Point Rapid) [place] 638193-02-21 12:50:00 Test Item Value Reference Range Interpretation Comments R-time Rapid (test code = R-time 0.7 min 0.4-0.7 Rapid) [place] 638193-02-21 12:50:00 Test Item Value Reference Range Interpretation Comments K-time Rapid (test code = K-time 1.1 min 0.6-2.3 Rapid) [place] 638193-02-21 12:50:00 Test Item Value Reference Range Interpretation Comments Angle Rapid (test code = Angle 78 degrees 64-80 Rapid) [place] 638193-02-21 12:50:00 Test Item Value Reference Range Interpretation Comments Max Amplitude Rapid (test code = Max 65 mm 52-71 Amplitude Rapid) [place] 638193-02-21 12:50:00 Test Item Value Reference Range Interpretation Comments G-value Rapid (test code = G-value 9.2 5.0-11.6 Rapid) [place] 638193-02-21 12:50:00 Test Item Value Reference Range Interpretation Comments Estimated % Lysis Rapid 0.0 See_Comment [Au tomated message] The (test code = Estimated syste m which generated % Lysis Rapid) this result t ransmitted reference range : <=7.5. The reference r christiano was not used to int erpret this result as normal/abnormal . [facility] HospitalFkoppkqCGGTFTWXFH1040-67-96 12:50:00 Test Item Value Reference Range Interpretation Comments Plt Morph (test code = See Note 1(11/21/22 Plt Morph) 6:50 AM) [facility] HospitalJfeisqhOHTIRHVCSC6423-53-73 12:50:00 Test Item Value Reference Range Interpretation Comments Stomatocyte (test code = Stomatocyte) slight [facility] [employer] KNMMGPC8238-42-45 12:50:00 Test Item Value Reference Range Interpretation Comments ABO/Rh (test code = ABO/Rh) O POS [facility] [employer] DBKCUWV9344-41-33 12:50:00 Test Item Value Reference Range Interpretation Comments Antibody Scrn (test Negative (11/21/22 6:50 code = Antibody Scrn) AM) [facility] HospitalOuijnywXEFNDIAZC8294-88-99 12:50:00 Test Item Value Reference Range Interpretation Comments Ethanol Lvl (test code = Ethanol Lvl) no gt [facility] HospitalEmbzfycRPWSEHEZT3846-26-12 12:50:00 Test Item Value Reference Range Interpretation Comments Etoh (%) (test code = Etoh (%)) no gt [facility] HospitalPpevmbvPPSWSTBYN9543-11-34 12:50:00 Test Item Value Reference Range Interpretation Comments Lactic Acid Lvl (test code = Lactic 0.7 0.5-2.2 Acid Lvl) [facility] HospitalIndjrslFGAXBQVCI2575-57-78 12:50:00 Test Item Value Reference Range Interpretation Comments Total Protein (test code = Total 6.1 6.4-8.4 Protein) [facility] HospitalPhtorpnUAWWJGDMU9944-32-75 12:50:00 Test Item Value Reference Range Interpretation Comments Albumin Lvl (test code = Albumin Lvl) 2.9 3.5-5.0 [facility] HospitalBonmnwpSMYAUEVRT6362-07-68 12:50:00 Test Item Value Reference Range Interpretation Comments Globulin (test code = Globulin) 3.2 2.7-4.2 [facility] HospitalDbkekhqBQOEBBDEQ9986-53-39 12:50:00 Test Item Value Reference Range Interpretation Comments A/G Ratio (test code = A/G Ratio) 0.9 1 0.7-1.6 [facility] HospitalWkpskyiQEJJTMXPF8113-51-99 12:50:00 Test Item Value Reference Range Interpretation Comments ALT (test code = ALT) 16 See_Comment [Auto mated message] The system which ge nerated this result transmit sheba reference range : <=65. The reference range was not used to interpr et this result as edy l/abnormal. [facility] HospitalEzcwpykNHGKKCDGH9438-36-55 12:50:00 Test Item Value Reference Range Interpretation Comments AST (test code = AST) 15 See_Comment [Auto mated message] The system which ge nerated this result transmit sheba reference range : <=37. The reference range was not used to interpr et this result as edy l/abnormal. [facility] HospitalKvgupgnPMGFUNVHK1446-33-10 12:50:00 Test Item Value Reference Range Interpretation Comments Alk Phos (test code = Alk Phos) 96 39-136 [facility] HospitalZpkjpwdWYQZIWVGE4764-87-33 12:50:00 Test Item Value Reference Range Interpretation Comments Bili Total (test code = Bili Total) 0.2 0.2-1.3 [facility] HospitalFvrqqgkVCWGYHFVQ0915-14-79 12:50:00 Test Item Value Reference Range Interpretation Comments Bili Direct (test code no gt See_Comment [Aut omated message] The = Bili Direct) system which generated this result tra nsmitted reference range : <=0.3. The reference r christiano was not used to int erpret this result as edy l/abnormal. [facility] HospitalCzdmzjzFBNTCEQUX5345-22-06 12:50:00 Test Item Value Reference Range Interpretation Comments Bili Indirect Unable to See_Comment [Automated (test code = Bili Calculate message] T he system Indirect) which generated this result transmitted reference range : <=1.0. The reference range was not used to interpret this result as normal/abnormal . [facility] HospitalFilkopaQHNIWTOCT6404-48-61 12:50:00 Test Item Value Reference Range Interpretation Comments HS Troponin I (test code = HS Troponin 15 I) [facility] HospitalAjgqpusFLXERLVSH2737-05-68 12:50:00 Test Item Value Reference Range Interpretation Comments pH Justin (test code = pH Justin) 7.35 1 7.28-7.42 [place] 711743-02-21 12:50:00 Test Item Value Reference Range Interpretation Comments pCO2 Justin (test code = pCO2 Justin) 55 38-52 [place] 711743-02-21 12:50:00 Test Item Value Reference Range Interpretation Comments pO2 Justin (test code = pO2 Justin) 43 20-49 [place] 711743-02-21 12:50:00 Test Item Value Reference Range Interpretation Comments HCO3 Justin (test code = HCO3 Justin) 30 22-26 [place] 711743-02-21 12:50:00 Test Item Value Reference Range Interpretation Comments BE Justin (test code = BE Justin) 3 -2-2 [facility] CenterWbuxhwvFRCMWPUAY7789-88-71 12:50:00 Test Item Value Reference Range Interpretation Comments O2 Sat Justin (calc) (test code = O2 Sat 75.9 40.0-70.0 Justin (calc)) [facility] CenterOwdxkcrCVQQKNCCV3111-14-40 12:50:00 Test Item Value Reference Range Interpretation Comments Temp Justin (test code = Temp Justin) 37.0 [place] 638193-02-21 12:50:00 Test Item Value Reference Range Interpretation Comments ACT (TEG) Rapid (test code = ACT (TEG) 113 s 86-118 Rapid) [place] 638193-02-21 12:50:00 Test Item Value Reference Range Interpretation Comments Split Point Rapid (test code = Split 0.6 min Point Rapid) [place] 638193-02-21 12:50:00 Test Item Value Reference Range Interpretation Comments R-time Rapid (test code = R-time 0.7 min 0.4-0.7 Rapid) [place] 638193-02-21 12:50:00 Test Item Value Reference Range Interpretation Comments K-time Rapid (test code = K-time 1.1 min 0.6-2.3 Rapid) [place] 638193-02-21 12:50:00 Test Item Value Reference Range Interpretation Comments Angle Rapid (test code = Angle 78 degrees 64-80 Rapid) [place] 638193-02-21 12:50:00 Test Item Value Reference Range Interpretation Comments Max Amplitude Rapid (test code = Max 65 mm 52-71 Amplitude Rapid) [place] 638193-02-21 12:50:00 Test Item Value Reference Range Interpretation Comments G-value Rapid (test code = G-value 9.2 5.0-11.6 Rapid) [facility] TzxdjinEXYSCEIEAK9558-16-08 12:50:00 Test Item Value Reference Range Interpretation Comments Estimated % Lysis Rapid 0.0 See_Comment [Au tomated message] The (test code = Estimated syste m which generated % Lysis Rapid) this result t ransmitted reference range : <=7.5. The reference r christiano was not used to int erpret this result as normal/abnormal . [facility] JasmjaqWPBLPSKRAW5425-57-14 12:50:00 Test Item Value Reference Range Interpretation Comments Plt Morph (test code = See Note 1(11/21/22 Plt Morph) 6:50 AM) [facility] ZckqeycNFWGHYLBNW0478-06-47 12:50:00 Test Item Value Reference Range Interpretation Comments Stomatocyte (test code = Stomatocyte) slight [facility] [employer] VKKDVQL1529-62-57 12:50:00 Test Item Value Reference Range Interpretation Comments ABO/Rh (test code = ABO/Rh) O POS [facility] [employer] QZHLKZC4426-79-22 12:50:00 Test Item Value Reference Range Interpretation Comments Antibody Scrn (test Negative (11/21/22 6:50 code = Antibody Scrn) AM) [facility] [employer] [id number] 12:50:00 Test Item Value Reference Range Interpretation Comments ABO/Rh (test code = ABO/Rh) O POS [facility] [employer] ENWASXY6774-01-26 12:50:00 Test Item Value Reference Range Interpretation Comments Antibody Scrn (test Negative (11/21/22 6:50 code = Antibody Scrn) AM) [facility] LuciduxCARDIAC [id number] 12:50:00 Test Item Value Reference Range Interpretation Comments HS Troponin I (test code = HS Troponin 15 I) [facility] [employer] [id number] 12:50:00 Test Item Value Reference Range Interpretation Comments Glucose Lvl (test code = Glucose Lvl) 99 70-99 [facility] [employer]2023-02-21 12:50:00 Test Item Value Reference Range Interpretation Comments BUN (test code = BUN) 38 7-22 [facility] [employer] [id number] 12:50:00 Test Item Value Reference Range Interpretation Comments Creatinine Lvl (test code = Creatinine 2.38 0.50-1.40 Lvl) [place] 218493-02-21 12:50:00 Test Item Value Reference Range Interpretation Comments Sodium Lvl (test code = Sodium Lvl) 140 135-145 [place] 218493-02-21 12:50:00 Test Item Value Reference Range Interpretation Comments Potassium Lvl (test code = Potassium 3.9 3.5-5.1 Lvl) [place] 218493-02-21 12:50:00 Test Item Value Reference Range Interpretation Comments Chloride Lvl (test code = Chloride Lvl) 107 95-109 [place] 218493-02-21 12:50:00 Test Item Value Reference Range Interpretation Comments CO2 (test code = CO2) 27 24-32 [place] 218493-02-21 12:50:00 Test Item Value Reference Range Interpretation Comments Calcium Lvl (test code = Calcium Lvl) 8.1 8.5-10.5 [place] 218493-02-21 12:50:00 Test Item Value Reference Range Interpretation Comments AGAP (test code = AGAP) 9.9 10.0-20.0 [place] 218493-02-21 12:50:00 Test Item Value Reference Range Interpretation Comments eGFR (test code = eGFR) 20 [place] 218493-02-21 12:50:00 Test Item Value Reference Range Interpretation Comments Lactic Acid Lvl (test code = Lactic 0.7 0.5-2.2 Acid Lvl) [place] 218493-02-21 12:50:00 Test Item Value Reference Range Interpretation Comments Total Protein (test code = Total 6.1 6.4-8.4 Protein) [place] 218493-02-21 12:50:00 Test Item Value Reference Range Interpretation Comments Albumin Lvl (test code = Albumin Lvl) 2.9 3.5-5.0 [place] 218493-02-21 12:50:00 Test Item Value Reference Range Interpretation Comments Globulin (test code = Globulin) 3.2 2.7-4.2 [place] 218493-02-21 12:50:00 Test Item Value Reference Range Interpretation Comments A/G Ratio (test code = A/G Ratio) 0.9 1 0.7-1.6 [facility] [employer] [id number] 12:50:00 Test Item Value Reference Range Interpretation Comments ALT (test code = ALT) 16 See_Comment [Auto mated message] The system which ge nerated this result transmit sheba reference range : <=65. The reference range was not used to interpr et this result as edy l/abnormal. [facility]TVPage UROUQ9761-25-28 12:50:00 Test Item Value Reference Range Interpretation Comments AST (test code = AST) 15 See_Comment [Auto mated message] The system which ge nerated this result transmit sheba reference range : <=37. The reference range was not used to interpr et this result as edy l/abnormal. [facility] [employer] [id number] 12:50:00 Test Item Value Reference Range Interpretation Comments Alk Phos (test code = Alk Phos) 96 39-136 [facility]TV[facility] EKRZU2490-11-49 12:50:00 Test Item Value Reference Range Interpretation Comments Bili Total (test code = Bili Total) 0.2 0.2-1.3 [facility]TV[facility] GKWRV6329-11-35 12:50:00 Test Item Value Reference Range Interpretation Comments Bili Direct (test code no gt See_Comment [Aut omated message] The = Bili Direct) system which generated this result tra nsmitted reference range : <=0.3. The reference r christiano was not used to int erpret this result as edy l/abnormal. [facility]TV[facility] [id number] 12:50:00 Test Item Value Reference Range Interpretation Comments Bili Indirect Unable to See_Comment [Automated (test code = Bili Calculate message] T he system Indirect) which generated this result transmitted reference range : <=1.0. The reference range was not used to interpret this result as normal/abnormal . [facility] HospitalDdlonuwXKKJCJIEC8382-37-84 12:50:00 Test Item Value Reference Range Interpretation Comments Ethanol Lvl (test code = Ethanol Lvl) no gt [facility]SawruufZTWDWTSFA2157-00-40 12:50:00 Test Item Value Reference Range Interpretation Comments Etoh (%) (test code = Etoh (%)) no gt [facility] HospitalSjkcmroZOMTXMVCF6016-41-69 12:50:00 Test Item Value Reference Range Interpretation Comments Lactic Acid Lvl (test code = Lactic 0.7 0.5-2.2 Acid Lvl) [facility] CenterAvtowjpYEAWQNTBD4538-19-67 12:50:00 Test Item Value Reference Range Interpretation Comments Total Protein (test code = Total 6.1 6.4-8.4 Protein) [facility] CenterOsbymcqJSWLYIQHQ5566-38-42 12:50:00 Test Item Value Reference Range Interpretation Comments Albumin Lvl (test code = Albumin Lvl) 2.9 3.5-5.0 [facility] CenterCompkllOPBLBKXLN5925-76-26 12:50:00 Test Item Value Reference Range Interpretation Comments Globulin (test code = Globulin) 3.2 2.7-4.2 [place] 711743-02-21 12:50:00 Test Item Value Reference Range Interpretation Comments A/G Ratio (test code = A/G Ratio) 0.9 1 0.7-1.6 [facility] CenterAlhprcgDMJEREQSY6203-51-74 12:50:00 Test Item Value Reference Range Interpretation Comments ALT (test code = ALT) 16 See_Comment [Auto mated message] The system which ge nerated this result transmit sheba reference range : <=65. The reference range was not used to interpr et this result as edy l/abnormal. [facility] CenterCrhphyjPSPADCFJQ8707-85-38 12:50:00 Test Item Value Reference Range Interpretation Comments AST (test code = AST) 15 See_Comment [Auto mated message] The system which ge nerated this result transmit sheba reference range : <=37. The reference range was not used to interpr et this result as edy l/abnormal. [facility] CenterYanzjkaFNOTFNRUC3123-15-93 12:50:00 Test Item Value Reference Range Interpretation Comments Alk Phos (test code = Alk Phos) 96 39-136 [facility] CenterJfnfcyuBILGVYIZH6408-32-84 12:50:00 Test Item Value Reference Range Interpretation Comments Bili Total (test code = Bili Total) 0.2 0.2-1.3 [place] 711743-02-21 12:50:00 Test Item Value Reference Range Interpretation Comments Bili Direct (test code no gt See_Comment [Aut omated message] The = Bili Direct) system which generated this result tra nsmitted reference range : <=0.3. The reference r christiano was not used to int erpret this result as dey l/abnormal. [facility] CenterRfcupnnYGNAXLROG5753-37-53 12:50:00 Test Item Value Reference Range Interpretation Comments Bili Indirect Unable to See_Comment [Automated (test code = Bili Calculate message] T he system Indirect) which generated this result transmitted reference range : <=1.0. The reference range was not used to interpret this result as normal/abnormal . [facility] CenterWkjrydjCTYHYCUXI3268-78-96 12:50:00 Test Item Value Reference Range Interpretation Comments HS Troponin I (test code = HS Troponin 15 I) [facility] CenterSqbpwgwCBZTJJVTG5460-62-35 12:50:00 Test Item Value Reference Range Interpretation Comments pH Justin (test code = pH Justin) 7.35 1 7.28-7.42 [place] 711743-02-21 12:50:00 Test Item Value Reference Range Interpretation Comments pCO2 Justin (test code = pCO2 Justin) 55 38-52 [place] 711743-02-21 12:50:00 Test Item Value Reference Range Interpretation Comments pO2 Justin (test code = pO2 Justin) 43 20-49 [place] 711743-02-21 12:50:00 Test Item Value Reference Range Interpretation Comments HCO3 Justin (test code = HCO3 Justin) 30 22-26 [place] 711743-02-21 12:50:00 Test Item Value Reference Range Interpretation Comments BE Justin (test code = BE Justin) 3 -2-2 [facility] CenterNretdghMUYJPHNOG3430-79-47 12:50:00 Test Item Value Reference Range Interpretation Comments O2 Sat Justin (calc) (test code = O2 Sat 75.9 40.0-70.0 Justin (calc)) [facility] CenterUtyccvqHQXUDWTVT4306-92-50 12:50:00 Test Item Value Reference Range Interpretation Comments Temp Justin (test code = Temp Justin) 37.0 [place] 638193-02-21 12:50:00 Test Item Value Reference Range Interpretation Comments ACT (TEG) Rapid (test code = ACT (TEG) 113 s 86-118 Rapid) [place] 638193-02-21 12:50:00 Test Item Value Reference Range Interpretation Comments Split Point Rapid (test code = Split 0.6 min Point Rapid) [facility]irzVRNQCEEGIY7004-45-95 12:50:00 Test Item Value Reference Range Interpretation Comments R-time Rapid (test code = R-time 0.7 min 0.4-0.7 Rapid) [place] [address]-02-21 12:50:00 Test Item Value Reference Range Interpretation Comments K-time Rapid (test code = K-time 1.1 min 0.6-2.3 Rapid) [place] [address]-02-21 12:50:00 Test Item Value Reference Range Interpretation Comments Angle Rapid (test code = Angle 78 degrees 64-80 Rapid) [place] [address]-02-21 12:50:00 Test Item Value Reference Range Interpretation Comments Max Amplitude Rapid (test code = Max 65 mm 52-71 Amplitude Rapid) [place] [address]-02-21 12:50:00 Test Item Value Reference Range Interpretation Comments G-value Rapid (test code = G-value 9.2 5.0-11.6 Rapid) [place] [address]-02-21 12:50:00 Test Item Value Reference Range Interpretation Comments Estimated % Lysis Rapid 0.0 See_Comment [Au tomated message] The (test code = Estimated syste m which generated % Lysis Rapid) this result t ransmitted reference range : <=7.5. The reference r christiano was not used to int erpret this result as normal/abnormal . [place] 638193-02-21 12:50:00 Test Item Value Reference Range Interpretation Comments Plt Morph (test code = See Note 1(11/21/22 Plt Morph) 6:50 AM) [place] [address]-02-21 12:50:00 Test Item Value Reference Range Interpretation Comments Stomatocyte (test code = Stomatocyte) slight [place] [address]-02-21 12:50:00 Test Item Value Reference Range Interpretation Comments WBC X 10x3 (test code = WBC X 10x3) 8.7 3.7-10.4 [place] [address]-02-21 12:50:00 Test Item Value Reference Range Interpretation Comments RBC X 10x6 (test code = RBC X 10x6) 3.56 4.20-5.40 [place] [address]-02-21 12:50:00 Test Item Value Reference Range Interpretation Comments Hgb (test code = Hgb) 10.4 12.0-16.0 [place] [address]-02-21 12:50:00 Test Item Value Reference Range Interpretation Comments Hct (test code = Hct) 32.3 36.0-48.0 [place] [address]-02-21 12:50:00 Test Item Value Reference Range Interpretation Comments MCV (test code = MCV) 90.8 80.0-98.0 [place] [address]-02-21 12:50:00 Test Item Value Reference Range Interpretation Comments MCH (test code = MCH) 29.3 pg 27.0-31.0 [place] [address]-02-21 12:50:00 Test Item Value Reference Range Interpretation Comments MCHC (test code = MCHC) 32.2 32.0-36.0 [place] [address]-02-21 12:50:00 Test Item Value Reference Range Interpretation Comments RDW (test code = RDW) 13.7 11.5-14.5 [place] [address]-02-21 12:50:00 Test Item Value Reference Range Interpretation Comments Platelet (test code = Platelet) 137 133-450 [place] 638193-02-21 12:50:00 Test Item Value Reference Range Interpretation Comments MPV (test code = MPV) 7.9 7.4-10.4 [place] [address]-02-21 12:50:00 Test Item Value Reference Range Interpretation Comments ACT (TEG) Rapid (test code = ACT (TEG) 113 s 86-118 Rapid) [place] 638193-02-21 12:50:00 Test Item Value Reference Range Interpretation Comments Split Point Rapid (test code = Split 0.6 min Point Rapid) [place] [address]-02-21 12:50:00 Test Item Value Reference Range Interpretation Comments R-time Rapid (test code = R-time 0.7 min 0.4-0.7 Rapid) [place] [address]-02-21 12:50:00 Test Item Value Reference Range Interpretation Comments K-time Rapid (test code = K-time 1.1 min 0.6-2.3 Rapid) [place] [address]-02-21 12:50:00 Test Item Value Reference Range Interpretation Comments Angle Rapid (test code = Angle 78 degrees 64-80 Rapid) [place] [address]-02-21 12:50:00 Test Item Value Reference Range Interpretation Comments Max Amplitude Rapid (test code = Max 65 mm 52-71 Amplitude Rapid) [place] 638193-02-21 12:50:00 Test Item Value Reference Range Interpretation Comments G-value Rapid (test code = G-value 9.2 5.0-11.6 Rapid) [facility]HI[facility]30[facility] 12:50:00 Test Item Value Reference Range Interpretation Comments Estimated % Lysis Rapid 0.0 See_Comment [Au tomated message] The (test code = Estimated syste m which generated % Lysis Rapid) this result t ransmitted reference range : <=7.5. The reference r christiano was not used to int erpret this result as normal/abnormal . [place] 638193-02-21 12:50:00 Test Item Value Reference Range Interpretation Comments Plt Morph (test code = See Note 1(11/21/22 Plt Morph) 6:50 AM) [place] 638193-02-21 12:50:00 Test Item Value Reference Range Interpretation Comments Segs (test code = Segs) 64.1 45.0-75.0 [place] 638193-02-21 12:50:00 Test Item Value Reference Range Interpretation Comments Lymphocytes (test code = Lymphocytes) 22.0 20.0-40.0 [place] 638193-02-21 12:50:00 Test Item Value Reference Range Interpretation Comments Monocytes (test code = Monocytes) 8.3 2.0-12.0 [place] 638193-02-21 12:50:00 Test Item Value Reference Range Interpretation Comments Eosinophils (test code = 4.7 See_Comment [A utomated message] The Eosinophils) system which ge nerated this result tra nsmitted reference range : <=4.0. The reference r christiano was not used to int erpret this result as normal/abnormal . [place] 638193-02-21 12:50:00 Test Item Value Reference Range Interpretation Comments Basophils (test code = 0.9 See_Comment [Aut omated message] The Basophils) system which ge nerated this result tra nsmitted reference range : <=1.0. The reference r christiano was not used to int erpret this result as normal/abnormal . [place] 638193-02-21 12:50:00 Test Item Value Reference Range Interpretation Comments Neutrophils # (test code = Neutrophils 5.6 1.5-8.1 #) [facility]XxvsuhrRSIERHASIL3700-56-24 12:50:00 Test Item Value Reference Range Interpretation Comments Lymphocytes # (test code = Lymphocytes 1.9 1.0-5.5 #) [facility]NdtaazhWXGKNRVOBA8651-74-25 12:50:00 Test Item Value Reference Range Interpretation Comments Monocytes # (test code 0.7 See_Comment [Aut omated message] The = Monocytes #) system which generated this result tra nsmitted reference range : <=0.8. The reference r christiano was not used to int erpret this result as normal/abnormal . [facility] HospitalBquldrrLVWFLCLIEG3121-92-97 12:50:00 Test Item Value Reference Range Interpretation Comments Eosinophils # (test code 0.4 See_Comment [A utomated message] The = Eosinophils #) system whic h generated this result tra nsmitted reference range : <=0.5. The reference r christiano was not used to int erpret this result as normal/abnormal . [facility] HospitalFpvpwsiRDNWVANNKV0567-37-83 12:50:00 Test Item Value Reference Range Interpretation Comments Basophils # (test code 0.1 See_Comment [Aut omated message] The = Basophils #) system which generated this result tra nsmitted reference range : <=0.2. The reference r christiano was not used to int erpret this result as normal/abnormal . [facility] HospitalLkatswcYZJZXFNRTN6758-95-33 12:50:00 Test Item Value Reference Range Interpretation Comments Stomatocyte (test code = Stomatocyte) slight [facility] HospitalIdvvusnHYILQYLPBY8530-88-83 12:50:00 Test Item Value Reference Range Interpretation Comments Ethanol Lvl (test code = Ethanol Lvl) no gt [facility] HospitalLzzrhrxUNTIQOKYRC7913-40-46 12:50:00 Test Item Value Reference Range Interpretation Comments Etoh (%) (test code = Etoh (%)) no gt [facility] [id number] 12:50:00 Test Item Value Reference Range Interpretation Comments ABO/Rh (test code = ABO/Rh) O POS [facility] [id number] 12:50:00 Test Item Value Reference Range Interpretation Comments Antibody Scrn (test Negative (11/21/22 6:50 code = Antibody Scrn) AM) [facility] [id number] 12:50:00 Test Item Value Reference Range Interpretation Comments ABO/Rh (test code = ABO/Rh) O POS [facility] [id number] 12:50:00 Test Item Value Reference Range Interpretation Comments Antibody Scrn (test Negative (11/21/22 6:50 code = Antibody Scrn) AM) [facility] IICARDIAC [id number] 12:50:00 Test Item Value Reference Range Interpretation Comments HS Troponin I (test code = HS Troponin 15 I) [facility] [employer] [id number] 12:50:00 Test Item Value Reference Range Interpretation Comments Glucose Lvl (test code = Glucose Lvl) 99 70-99 [facility] [employer] [id number] 12:50:00 Test Item Value Reference Range Interpretation Comments BUN (test code = BUN) 38 7-22 [facility] [employer] [id number] 12:50:00 Test Item Value Reference Range Interpretation Comments Creatinine Lvl (test code = Creatinine 2.38 0.50-1.40 Lvl) [facility] [employer] [id number] 12:50:00 Test Item Value Reference Range Interpretation Comments Sodium Lvl (test code = Sodium Lvl) 140 135-145 [facility] [employer] [id number] 12:50:00 Test Item Value Reference Range Interpretation Comments Potassium Lvl (test code = Potassium 3.9 3.5-5.1 Lvl) [facility] [employer]2023-02-21 12:50:00 Test Item Value Reference Range Interpretation Comments Chloride Lvl (test code = Chloride Lvl) 107 95-109 [facility] [employer]2023-02-21 12:50:00 Test Item Value Reference Range Interpretation Comments CO2 (test code = CO2) 27 24-32 [facility] [employer] [id number] 12:50:00 Test Item Value Reference Range Interpretation Comments Calcium Lvl (test code = Calcium Lvl) 8.1 8.5-10.5 [facility] [employer] [id number] 12:50:00 Test Item Value Reference Range Interpretation Comments AGAP (test code = AGAP) 9.9 10.0-20.0 [place] [address]-02-21 12:50:00 Test Item Value Reference Range Interpretation Comments eGFR (test code = eGFR) 20 [place] 218493-02-21 12:50:00 Test Item Value Reference Range Interpretation Comments Lactic Acid Lvl (test code = Lactic 0.7 0.5-2.2 Acid Lvl) [place] 218493-02-21 12:50:00 Test Item Value Reference Range Interpretation Comments Total Protein (test code = Total 6.1 6.4-8.4 Protein) [place] [address]-02-21 12:50:00 Test Item Value Reference Range Interpretation Comments Albumin Lvl (test code = Albumin Lvl) 2.9 3.5-5.0 [place] 218493-02-21 12:50:00 Test Item Value Reference Range Interpretation Comments Globulin (test code = Globulin) 3.2 2.7-4.2 [place] 218493-02-21 12:50:00 Test Item Value Reference Range Interpretation Comments A/G Ratio (test code = A/G Ratio) 0.9 1 0.7-1.6 [place] [address]-02-21 12:50:00 Test Item Value Reference Range Interpretation Comments ALT (test code = ALT) 16 See_Comment [Auto mated message] The system which ge nerated this result transmit sheba reference range : <=65. The reference range was not used to interpr et this result as edy l/abnormal. [facility] [id number] 12:50:00 Test Item Value Reference Range Interpretation Comments AST (test code = AST) 15 See_Comment [Auto mated message] The system which ge nerated this result transmit sheba reference range : <=37. The reference range was not used to interpr et this result as edy l/abnormal. [facility] [id number] 12:50:00 Test Item Value Reference Range Interpretation Comments Alk Phos (test code = Alk Phos) 96 39-136 [place] 218493-02-21 12:50:00 Test Item Value Reference Range Interpretation Comments Bili Total (test code = Bili Total) 0.2 0.2-1.3 [facility] [id number] 12:50:00 Test Item Value Reference Range Interpretation Comments Bili Direct (test code no gt See_Comment [Aut omated message] The = Bili Direct) system which generated this result tra nsmitted reference range : <=0.3. The reference r christiano was not used to int erpret this result as edy l/abnormal. [facility]TV[facility] [id number] 12:50:00 Test Item Value Reference Range Interpretation Comments Bili Indirect Unable to See_Comment [Automated (test code = Bili Calculate message] T he system Indirect) which generated this result transmitted reference range : <=1.0. The reference range was not used to interpret this result as normal/abnormal . [facility] HospitalVcqpgemFDIZUPARH6834-56-13 12:50:00 Test Item Value Reference Range Interpretation Comments Ethanol Lvl (test code = Ethanol Lvl) no gt [facility] HospitalHxsgrxsVRJYGOMCP5268-05-09 12:50:00 Test Item Value Reference Range Interpretation Comments Etoh (%) (test code = Etoh (%)) no gt [facility] HospitalDupfictAFTZUGBYK3666-65-30 12:50:00 Test Item Value Reference Range Interpretation Comments Lactic Acid Lvl (test code = Lactic 0.7 0.5-2.2 Acid Lvl) [facility] HospitalHkkwnybDSONXMSGV8255-82-00 12:50:00 Test Item Value Reference Range Interpretation Comments Total Protein (test code = Total 6.1 6.4-8.4 Protein) [facility] HospitalYczmcrhAXUNESFDV7999-80-65 12:50:00 Test Item Value Reference Range Interpretation Comments Albumin Lvl (test code = Albumin Lvl) 2.9 3.5-5.0 [facility] HospitalRzftjjhFEVLMEZCL6310-27-98 12:50:00 Test Item Value Reference Range Interpretation Comments Globulin (test code = Globulin) 3.2 2.7-4.2 [facility] HospitalRetdqqbJUYPKOJOQ2111-59-56 12:50:00 Test Item Value Reference Range Interpretation Comments A/G Ratio (test code = A/G Ratio) 0.9 1 0.7-1.6 [facility] HospitalPgnscqmLWQZXJWGI1680-42-63 12:50:00 Test Item Value Reference Range Interpretation Comments ALT (test code = ALT) 16 See_Comment [Auto mated message] The system which ge nerated this result transmit sheba reference range : <=65. The reference range was not used to interpr et this result as edy l/abnormal. [facility]YglcwgyVCDARGIDV2360-10-26 12:50:00 Test Item Value Reference Range Interpretation Comments AST (test code = AST) 15 See_Comment [Auto mated message] The system which ge nerated this result transmit sheba reference range : <=37. The reference range was not used to interpr et this result as edy l/abnormal. [facility] CenterHijwkstMENYPLMEW6005-32-63 12:50:00 Test Item Value Reference Range Interpretation Comments Alk Phos (test code = Alk Phos) 96 39-136 [facility] CenterTqamhirZLCZTGJNL9664-65-10 12:50:00 Test Item Value Reference Range Interpretation Comments Bili Total (test code = Bili Total) 0.2 0.2-1.3 [place] 711743-02-21 12:50:00 Test Item Value Reference Range Interpretation Comments Bili Direct (test code no gt See_Comment [Aut omated message] The = Bili Direct) system which generated this result tra nsmitted reference range : <=0.3. The reference r christiano was not used to int erpret this result as edy l/abnormal. [facility] HospitalIiytnglRTWMMTHRO9104-86-51 12:50:00 Test Item Value Reference Range Interpretation Comments Bili Indirect Unable to See_Comment [Automated (test code = Bili Calculate message] T he system Indirect) which generated this result transmitted reference range : <=1.0. The reference range was not used to interpret this result as normal/abnormal . [facility] CenterFaczqtvNCQHCRIGX8140-05-82 12:50:00 Test Item Value Reference Range Interpretation Comments HS Troponin I (test code = HS Troponin 15 I) [facility] CenterAwbwtkrNNKWEUSID5635-30-22 12:50:00 Test Item Value Reference Range Interpretation Comments pH Justin (test code = pH Justin) 7.35 1 7.28-7.42 [place] 711743-02-21 12:50:00 Test Item Value Reference Range Interpretation Comments pCO2 Justin (test code = pCO2 Justin) 55 38-52 [place] 711743-02-21 12:50:00 Test Item Value Reference Range Interpretation Comments pO2 Justin (test code = pO2 Justin) 43 20-49 [place] 711743-02-21 12:50:00 Test Item Value Reference Range Interpretation Comments HCO3 Justin (test code = HCO3 Justin) 30 22-26 [place] 711743-02-21 12:50:00 Test Item Value Reference Range Interpretation Comments BE Justin (test code = BE Justin) 3 -2-2 [place] 711743-02-21 12:50:00 Test Item Value Reference Range Interpretation Comments O2 Sat Justin (calc) (test code = O2 Sat 75.9 40.0-70.0 Justin (calc)) [facility] CenterFfogqcmSEZLHHFUQ5537-44-92 12:50:00 Test Item Value Reference Range Interpretation Comments Temp Justin (test code = Temp Justin) 37.0 [place] 638193-02-21 12:50:00 Test Item Value Reference Range Interpretation Comments ACT (TEG) Rapid (test code = ACT (TEG) 113 s 86-118 Rapid) [place] 638193-02-21 12:50:00 Test Item Value Reference Range Interpretation Comments Split Point Rapid (test code = Split 0.6 min Point Rapid) [place] 638193-02-21 12:50:00 Test Item Value Reference Range Interpretation Comments R-time Rapid (test code = R-time 0.7 min 0.4-0.7 Rapid) [place] 638193-02-21 12:50:00 Test Item Value Reference Range Interpretation Comments K-time Rapid (test code = K-time 1.1 min 0.6-2.3 Rapid) [place] 638193-02-21 12:50:00 Test Item Value Reference Range Interpretation Comments Angle Rapid (test code = Angle 78 degrees 64-80 Rapid) [place] 638193-02-21 12:50:00 Test Item Value Reference Range Interpretation Comments Max Amplitude Rapid (test code = Max 65 mm 52-71 Amplitude Rapid) [place] 638193-02-21 12:50:00 Test Item Value Reference Range Interpretation Comments G-value Rapid (test code = G-value 9.2 5.0-11.6 Rapid) [place] 638193-02-21 12:50:00 Test Item Value Reference Range Interpretation Comments Estimated % Lysis Rapid 0.0 See_Comment [Au tomated message] The (test code = Estimated syste m which generated % Lysis Rapid) this result t ransmitted reference range : <=7.5. The reference r christiano was not used to int erpret this result as normal/abnormal . [facility] HospitalZhaisivPDONIVYZNB1050-93-80 12:50:00 Test Item Value Reference Range Interpretation Comments Plt Morph (test code = See Note 1(11/21/22 Plt Morph) 6:50 AM) [place] 638193-02-21 12:50:00 Test Item Value Reference Range Interpretation Comments Stomatocyte (test code = Stomatocyte) slight [place] 638193-02-21 12:50:00 Test Item Value Reference Range Interpretation Comments WBC X 10x3 (test code = WBC X 10x3) 8.7 3.7-10.4 [place] [address]-02-21 12:50:00 Test Item Value Reference Range Interpretation Comments RBC X 10x6 (test code = RBC X 10x6) 3.56 4.20-5.40 [place] 638193-02-21 12:50:00 Test Item Value Reference Range Interpretation Comments Hgb (test code = Hgb) 10.4 12.0-16.0 [place] [address]-02-21 12:50:00 Test Item Value Reference Range Interpretation Comments Hct (test code = Hct) 32.3 36.0-48.0 [place] 638193-02-21 12:50:00 Test Item Value Reference Range Interpretation Comments MCV (test code = MCV) 90.8 80.0-98.0 [place] [address]-02-21 12:50:00 Test Item Value Reference Range Interpretation Comments MCH (test code = MCH) 29.3 pg 27.0-31.0 [place] [address]-02-21 12:50:00 Test Item Value Reference Range Interpretation Comments MCHC (test code = MCHC) 32.2 32.0-36.0 [place] [address]-02-21 12:50:00 Test Item Value Reference Range Interpretation Comments RDW (test code = RDW) 13.7 11.5-14.5 [place] [address]-02-21 12:50:00 Test Item Value Reference Range Interpretation Comments Platelet (test code = Platelet) 137 133-450 [place] 638193-02-21 12:50:00 Test Item Value Reference Range Interpretation Comments MPV (test code = MPV) 7.9 7.4-10.4 [place] [address]-02-21 12:50:00 Test Item Value Reference Range Interpretation Comments ACT (TEG) Rapid (test code = ACT (TEG) 113 s 86-118 Rapid) [place] [address]-02-21 12:50:00 Test Item Value Reference Range Interpretation Comments Split Point Rapid (test code = Split 0.6 min Point Rapid) [place] [address]-02-21 12:50:00 Test Item Value Reference Range Interpretation Comments R-time Rapid (test code = R-time 0.7 min 0.4-0.7 Rapid) [place] [address]-02-21 12:50:00 Test Item Value Reference Range Interpretation Comments K-time Rapid (test code = K-time 1.1 min 0.6-2.3 Rapid) [place] [address]-02-21 12:50:00 Test Item Value Reference Range Interpretation Comments Angle Rapid (test code = Angle 78 degrees 64-80 Rapid) [place] [address]-02-21 12:50:00 Test Item Value Reference Range Interpretation Comments Max Amplitude Rapid (test code = Max 65 mm 52-71 Amplitude Rapid) [place] [address]-02-21 12:50:00 Test Item Value Reference Range Interpretation Comments G-value Rapid (test code = G-value 9.2 5.0-11.6 Rapid) [place] [address]-02-21 12:50:00 Test Item Value Reference Range Interpretation Comments Estimated % Lysis Rapid 0.0 See_Comment [Au tomated message] The (test code = Estimated syste m which generated % Lysis Rapid) this result t ransmitted reference range : <=7.5. The reference r christiano was not used to int erpret this result as normal/abnormal . [place] 638193-02-21 12:50:00 Test Item Value Reference Range Interpretation Comments Plt Morph (test code = See Note 1(11/21/22 Plt Morph) 6:50 AM) [place] 638193-02-21 12:50:00 Test Item Value Reference Range Interpretation Comments Segs (test code = Segs) 64.1 45.0-75.0 [place] 638193-02-21 12:50:00 Test Item Value Reference Range Interpretation Comments Lymphocytes (test code = Lymphocytes) 22.0 20.0-40.0 [place] 638193-02-21 12:50:00 Test Item Value Reference Range Interpretation Comments Monocytes (test code = Monocytes) 8.3 2.0-12.0 [place] 638193-02-21 12:50:00 Test Item Value Reference Range Interpretation Comments Eosinophils (test code = 4.7 See_Comment [A utomated message] The Eosinophils) system which ge nerated this result tra nsmitted reference range : <=4.0. The reference r christiano was not used to int erpret this result as normal/abnormal . [place] 638193-02-21 12:50:00 Test Item Value Reference Range Interpretation Comments Basophils (test code = 0.9 See_Comment [Aut omated message] The Basophils) system which ge nerated this result tra nsmitted reference range : <=1.0. The reference r christiano was not used to int erpret this result as normal/abnormal . [facility] HospitalSwcbjynGUPVKMEJOP8662-51-72 12:50:00 Test Item Value Reference Range Interpretation Comments Neutrophils # (test code = Neutrophils 5.6 1.5-8.1 #) [facility] HospitalSdrarzhEYODJVBTPT0505-02-19 12:50:00 Test Item Value Reference Range Interpretation Comments Lymphocytes # (test code = Lymphocytes 1.9 1.0-5.5 #) [facility] HospitalFdlhvspCDWUGXCZNI2126-17-30 12:50:00 Test Item Value Reference Range Interpretation Comments Monocytes # (test code 0.7 See_Comment [Aut omated message] The = Monocytes #) system which generated this result tra nsmitted reference range : <=0.8. The reference r christiano was not used to int erpret this result as normal/abnormal . [facility] HospitalRpryoyuEEPIDMBBOV1304-96-75 12:50:00 Test Item Value Reference Range Interpretation Comments Eosinophils # (test code 0.4 See_Comment [A utomated message] The = Eosinophils #) system whic h generated this result tra nsmitted reference range : <=0.5. The reference r christiano was not used to int erpret this result as normal/abnormal . [place] [address]-02-21 12:50:00 Test Item Value Reference Range Interpretation Comments Basophils # (test code 0.1 See_Comment [Aut omated message] The = Basophils #) system which generated this result tra nsmitted reference range : <=0.2. The reference r christiano was not used to int erpret this result as normal/abnormal . [facility] ViomxohTYUPBTGVAA9802-42-87 12:50:00 Test Item Value Reference Range Interpretation Comments Stomatocyte (test code = Stomatocyte) slight [facility] HospitalEgndppcUESRWFTDAX4994-46-35 12:50:00 Test Item Value Reference Range Interpretation Comments Ethanol Lvl (test code = Ethanol Lvl) no gt [facility] AlmdphfQBKFNJFTWH9872-56-82 12:50:00 Test Item Value Reference Range Interpretation Comments Etoh (%) (test code = Etoh (%)) no gt [facility] [employer] [id number] 12:50:00 Test Item Value Reference Range Interpretation Comments ABO/Rh (test code = ABO/Rh) O POS [facility] [employer] [id number] 12:50:00 Test Item Value Reference Range Interpretation Comments Antibody Scrn (test Negative (11/21/22 6:50 code = Antibody Scrn) AM) [facility] [employer] [id number] 12:50:00 Test Item Value Reference Range Interpretation Comments ABO/Rh (test code = ABO/Rh) O POS [facility] [employer] [id number] 12:50:00 Test Item Value Reference Range Interpretation Comments Antibody Scrn (test Negative (11/21/22 6:50 code = Antibody Scrn) AM) [facility] [employer] [id number] 12:50:00 Test Item Value Reference Range Interpretation Comments HS Troponin I (test code = HS Troponin 15 I) [facility] [employer] [id number] 12:50:00 Test Item Value Reference Range Interpretation Comments Glucose Lvl (test code = Glucose Lvl) 99 70-99 [facility] [employer] [id number] 12:50:00 Test Item Value Reference Range Interpretation Comments BUN (test code = BUN) 38 7-22 [facility] [employer] [id number] 12:50:00 Test Item Value Reference Range Interpretation Comments Creatinine Lvl (test code = Creatinine 2.38 0.50-1.40 Lvl) [place] 218493-02-21 12:50:00 Test Item Value Reference Range Interpretation Comments Sodium Lvl (test code = Sodium Lvl) 140 135-145 [place] 218493-02-21 12:50:00 Test Item Value Reference Range Interpretation Comments Potassium Lvl (test code = Potassium 3.9 3.5-5.1 Lvl) [place] 218493-02-21 12:50:00 Test Item Value Reference Range Interpretation Comments Chloride Lvl (test code = Chloride Lvl) 107 95-109 [place] 218493-02-21 12:50:00 Test Item Value Reference Range Interpretation Comments CO2 (test code = CO2) 27 24-32 [place] 218493-02-21 12:50:00 Test Item Value Reference Range Interpretation Comments Calcium Lvl (test code = Calcium Lvl) 8.1 8.5-10.5 [place] 218493-02-21 12:50:00 Test Item Value Reference Range Interpretation Comments AGAP (test code = AGAP) 9.9 10.0-20.0 [place] 218493-02-21 12:50:00 Test Item Value Reference Range Interpretation Comments eGFR (test code = eGFR) 20 [place] 218493-02-21 12:50:00 Test Item Value Reference Range Interpretation Comments Lactic Acid Lvl (test code = Lactic 0.7 0.5-2.2 Acid Lvl) [place] 218493-02-21 12:50:00 Test Item Value Reference Range Interpretation Comments Total Protein (test code = Total 6.1 6.4-8.4 Protein) [place] 218493-02-21 12:50:00 Test Item Value Reference Range Interpretation Comments Albumin Lvl (test code = Albumin Lvl) 2.9 3.5-5.0 [place] 218493-02-21 12:50:00 Test Item Value Reference Range Interpretation Comments Globulin (test code = Globulin) 3.2 2.7-4.2 [place] 218493-02-21 12:50:00 Test Item Value Reference Range Interpretation Comments A/G Ratio (test code = A/G Ratio) 0.9 1 0.7-1.6 [facility] [employer] [id number] 12:50:00 Test Item Value Reference Range Interpretation Comments ALT (test code = ALT) 16 See_Comment [Auto mated message] The system which ge nerated this result transmit sheba reference range : <=65. The reference range was not used to interpr et this result as edy l/abnormal. [facility] [id number] 12:50:00 Test Item Value Reference Range Interpretation Comments AST (test code = AST) 15 See_Comment [Auto mated message] The system which ge nerated this result transmit sheba reference range : <=37. The reference range was not used to interpr et this result as edy l/abnormal. [facility] [employer] [id number] 12:50:00 Test Item Value Reference Range Interpretation Comments Alk Phos (test code = Alk Phos) 96 39-136 [facility] [id number] 12:50:00 Test Item Value Reference Range Interpretation Comments Bili Total (test code = Bili Total) 0.2 0.2-1.3 [facility] [id number] 12:50:00 Test Item Value Reference Range Interpretation Comments Bili Direct (test code no gt See_Comment [Aut omated message] The = Bili Direct) system which generated this result tra nsmitted reference range : <=0.3. The reference r christiano was not used to int erpret this result as edy l/abnormal. [facility] [id number] 12:50:00 Test Item Value Reference Range Interpretation Comments Bili Indirect Unable to See_Comment [Automated (test code = Bili Calculate message] T he system Indirect) which generated this result transmitted reference range : <=1.0. The reference range was not used to interpret this result as normal/abnormal . [facility] HospitalMngufpaPVVRMOFSY6893-64-26 12:50:00 Test Item Value Reference Range Interpretation Comments Ethanol Lvl (test code = Ethanol Lvl) no gt [facility] HospitalVsnofctZVYMHRODN5651-12-25 12:50:00 Test Item Value Reference Range Interpretation Comments Etoh (%) (test code = Etoh (%)) no [facility]rigCCRPCCBXS8917-31-66 12:50:00 Test Item Value Reference Range Interpretation Comments Lactic Acid Lvl (test code = Lactic 0.7 0.5-2.2 Acid Lvl) [facility]EcyziptBJISAUHUI4730-51-35 12:50:00 Test Item Value Reference Range Interpretation Comments Total Protein (test code = Total 6.1 6.4-8.4 Protein) [facility] CenterIgztyqsLGCANMEGC7937-87-70 12:50:00 Test Item Value Reference Range Interpretation Comments Albumin Lvl (test code = Albumin Lvl) 2.9 3.5-5.0 [place] 711743-02-21 12:50:00 Test Item Value Reference Range Interpretation Comments Globulin (test code = Globulin) 3.2 2.7-4.2 [place] 711743-02-21 12:50:00 Test Item Value Reference Range Interpretation Comments A/G Ratio (test code = A/G Ratio) 0.9 1 0.7-1.6 [place] 711743-02-21 12:50:00 Test Item Value Reference Range Interpretation Comments ALT (test code = ALT) 16 See_Comment [Auto mated message] The system which ge nerated this result transmit sheba reference range : <=65. The reference range was not used to interpr et this result as edy l/abnormal. [facility] CenterIqlezpkPJFLFIXAD4863-51-25 12:50:00 Test Item Value Reference Range Interpretation Comments AST (test code = AST) 15 See_Comment [Auto mated message] The system which ge nerated this result transmit sheba reference range : <=37. The reference range was not used to interpr et this result as edy l/abnormal. [facility] CenterGhrqvdoDPYOAFOER0243-91-55 12:50:00 Test Item Value Reference Range Interpretation Comments Alk Phos (test code = Alk Phos) 96 39-136 [place] 711743-02-21 12:50:00 Test Item Value Reference Range Interpretation Comments Bili Total (test code = Bili Total) 0.2 0.2-1.3 [place] 711743-02-21 12:50:00 Test Item Value Reference Range Interpretation Comments Bili Direct (test code no gt See_Comment [Aut omated message] The = Bili Direct) system which generated this result tra nsmitted reference range : <=0.3. The reference r christiano was not used to int erpret this result as edy l/abnormal. [facility] CenterCqyfbdeIEIEITUVZ6180-56-70 12:50:00 Test Item Value Reference Range Interpretation Comments Bili Indirect Unable to See_Comment [Automated (test code = Bili Calculate message] T he system Indirect) which generated this result transmitted reference range : <=1.0. The reference range was not used to interpret this result as normal/abnormal . [place] 711743-02-21 12:50:00 Test Item Value Reference Range Interpretation Comments HS Troponin I (test code = HS Troponin 15 I) [facility] CenterPnahfovMSSMDDKZF4149-44-63 12:50:00 Test Item Value Reference Range Interpretation Comments pH Justin (test code = pH Justin) 7.35 1 7.28-7.42 [place] 711743-02-21 12:50:00 Test Item Value Reference Range Interpretation Comments pCO2 Justin (test code = pCO2 Justin) 55 38-52 [place] 711743-02-21 12:50:00 Test Item Value Reference Range Interpretation Comments pO2 Justin (test code = pO2 Justin) 43 20-49 [place] 711743-02-21 12:50:00 Test Item Value Reference Range Interpretation Comments HCO3 Justin (test code = HCO3 Justin) 30 22-26 [place] 711743-02-21 12:50:00 Test Item Value Reference Range Interpretation Comments BE Justin (test code = BE Justin) 3 -2-2 [place] 711743-02-21 12:50:00 Test Item Value Reference Range Interpretation Comments O2 Sat Justin (calc) (test code = O2 Sat 75.9 40.0-70.0 Justin (calc)) [facility] CenterUzopflyLOWRNFTRC0299-52-53 12:50:00 Test Item Value Reference Range Interpretation Comments Temp Justin (test code = Temp Justin) 37.0 [place] 638193-02-21 12:50:00 Test Item Value Reference Range Interpretation Comments ACT (TEG) Rapid (test code = ACT (TEG) 113 s 86-118 Rapid) [place] 638193-02-21 12:50:00 Test Item Value Reference Range Interpretation Comments Split Point Rapid (test code = Split 0.6 min Point Rapid) [place] 638193-02-21 12:50:00 Test Item Value Reference Range Interpretation Comments R-time Rapid (test code = R-time 0.7 min 0.4-0.7 Rapid) [place] 638193-02-21 12:50:00 Test Item Value Reference Range Interpretation Comments K-time Rapid (test code = K-time 1.1 min 0.6-2.3 Rapid) [place] [address]-02-21 12:50:00 Test Item Value Reference Range Interpretation Comments Angle Rapid (test code = Angle 78 degrees 64-80 Rapid) [place] 638193-02-21 12:50:00 Test Item Value Reference Range Interpretation Comments Max Amplitude Rapid (test code = Max 65 mm 52-71 Amplitude Rapid) [place] [address]-02-21 12:50:00 Test Item Value Reference Range Interpretation Comments G-value Rapid (test code = G-value 9.2 5.0-11.6 Rapid) [place] 638193-02-21 12:50:00 Test Item Value Reference Range Interpretation Comments Estimated % Lysis Rapid 0.0 See_Comment [Au tomated message] The (test code = Estimated syste m which generated % Lysis Rapid) this result t ransmitted reference range : <=7.5. The reference r christiano was not used to int erpret this result as normal/abnormal . [facility]BuoaqhjXLIJJZZGNU5787-58-55 12:50:00 Test Item Value Reference Range Interpretation Comments Plt Morph (test code = See Note 1(11/21/22 Plt Morph) 6:50 AM) [place] 638193-02-21 12:50:00 Test Item Value Reference Range Interpretation Comments Stomatocyte (test code = Stomatocyte) slight [place] 638193-02-21 12:50:00 Test Item Value Reference Range Interpretation Comments WBC X 10x3 (test code = WBC X 10x3) 8.7 3.7-10.4 [place] 638193-02-21 12:50:00 Test Item Value Reference Range Interpretation Comments RBC X 10x6 (test code = RBC X 10x6) 3.56 4.20-5.40 [place] [address]-02-21 12:50:00 Test Item Value Reference Range Interpretation Comments Hgb (test code = Hgb) 10.4 12.0-16.0 [place] [address]-02-21 12:50:00 Test Item Value Reference Range Interpretation Comments Hct (test code = Hct) 32.3 36.0-48.0 [place] [address]-02-21 12:50:00 Test Item Value Reference Range Interpretation Comments MCV (test code = MCV) 90.8 80.0-98.0 [place] [address]-02-21 12:50:00 Test Item Value Reference Range Interpretation Comments MCH (test code = MCH) 29.3 pg 27.0-31.0 [place] [address]-02-21 12:50:00 Test Item Value Reference Range Interpretation Comments MCHC (test code = MCHC) 32.2 32.0-36.0 [place] [address]-02-21 12:50:00 Test Item Value Reference Range Interpretation Comments RDW (test code = RDW) 13.7 11.5-14.5 [place] [address]-02-21 12:50:00 Test Item Value Reference Range Interpretation Comments Platelet (test code = Platelet) 137 133-450 [place] 638193-02-21 12:50:00 Test Item Value Reference Range Interpretation Comments MPV (test code = MPV) 7.9 7.4-10.4 [place] [address]-02-21 12:50:00 Test Item Value Reference Range Interpretation Comments ACT (TEG) Rapid (test code = ACT (TEG) 113 s 86-118 Rapid) [place] [address]-02-21 12:50:00 Test Item Value Reference Range Interpretation Comments Split Point Rapid (test code = Split 0.6 min Point Rapid) [place] [address]-02-21 12:50:00 Test Item Value Reference Range Interpretation Comments R-time Rapid (test code = R-time 0.7 min 0.4-0.7 Rapid) [place] [address]-02-21 12:50:00 Test Item Value Reference Range Interpretation Comments K-time Rapid (test code = K-time 1.1 min 0.6-2.3 Rapid) [place] [address]-02-21 12:50:00 Test Item Value Reference Range Interpretation Comments Angle Rapid (test code = Angle 78 degrees 64-80 Rapid) [place] [address]-02-21 12:50:00 Test Item Value Reference Range Interpretation Comments Max Amplitude Rapid (test code = Max 65 mm 52-71 Amplitude Rapid) [place] 638193-02-21 12:50:00 Test Item Value Reference Range Interpretation Comments G-value Rapid (test code = G-value 9.2 5.0-11.6 Rapid) [facility] HospitalWifohdcEYMXWCQGMC0596-01-60 12:50:00 Test Item Value Reference Range Interpretation Comments Estimated % Lysis Rapid 0.0 See_Comment [Au tomated message] The (test code = Estimated syste m which generated % Lysis Rapid) this result t ransmitted reference range : <=7.5. The reference r christiano was not used to int erpret this result as normal/abnormal . [facility] HospitalEqwwdrzRCWMDZTGJU2842-83-01 12:50:00 Test Item Value Reference Range Interpretation Comments Plt Morph (test code = See Note 1(11/21/22 Plt Morph) 6:50 AM) [facility] HospitalIiexvmyUSLREOZLIN1509-75-98 12:50:00 Test Item Value Reference Range Interpretation Comments Segs (test code = Segs) 64.1 45.0-75.0 [facility] HospitalXmlxtuqWYFNHBZPWK6654-27-47 12:50:00 Test Item Value Reference Range Interpretation Comments Lymphocytes (test code = Lymphocytes) 22.0 20.0-40.0 [facility] HospitalOryhptcCPCOQXTQXB2676-72-08 12:50:00 Test Item Value Reference Range Interpretation Comments Monocytes (test code = Monocytes) 8.3 2.0-12.0 [place] 638193-02-21 12:50:00 Test Item Value Reference Range Interpretation Comments Eosinophils (test code = 4.7 See_Comment [A utomated message] The Eosinophils) system which ge nerated this result tra nsmitted reference range : <=4.0. The reference r christiano was not used to int erpret this result as normal/abnormal . [facility] HospitalUzcxtesHJYJWGXIRM0737-00-14 12:50:00 Test Item Value Reference Range Interpretation Comments Basophils (test code = 0.9 See_Comment [Aut omated message] The Basophils) system which ge nerated this result tra nsmitted reference range : <=1.0. The reference r christiano was not used to int erpret this result as normal/abnormal . [place] [address]-02-21 12:50:00 Test Item Value Reference Range Interpretation Comments Neutrophils # (test code = Neutrophils 5.6 1.5-8.1 #) [facility] HospitalOtqntbbDECPINAAWQ5882-15-63 12:50:00 Test Item Value Reference Range Interpretation Comments Lymphocytes # (test code = Lymphocytes 1.9 1.0-5.5 #) [facility] HospitalMcleofeDDTUMLEMWC4912-09-41 12:50:00 Test Item Value Reference Range Interpretation Comments Monocytes # (test code 0.7 See_Comment [Aut omated message] The = Monocytes #) system which generated this result tra nsmitted reference range : <=0.8. The reference r christiano was not used to int erpret this result as normal/abnormal . [facility] HospitalLgkvbzgVZCWPOVFRP1729-67-06 12:50:00 Test Item Value Reference Range Interpretation Comments Eosinophils # (test code 0.4 See_Comment [A utomated message] The = Eosinophils #) system whic h generated this result tra nsmitted reference range : <=0.5. The reference r christiano was not used to int erpret this result as normal/abnormal . [facility] HospitalRipwondYEBVSMQUHD1511-17-95 12:50:00 Test Item Value Reference Range Interpretation Comments Basophils # (test code 0.1 See_Comment [Aut omated message] The = Basophils #) system which generated this result tra nsmitted reference range : <=0.2. The reference r christiano was not used to int erpret this result as normal/abnormal . [facility] HospitalSszesccQNMQALHMBF5158-14-70 12:50:00 Test Item Value Reference Range Interpretation Comments Stomatocyte (test code = Stomatocyte) slight [facility] HospitalCkysvxgDSDGQNSQXK2362-03-18 12:50:00 Test Item Value Reference Range Interpretation Comments Ethanol Lvl (test code = Ethanol Lvl) no gt [facility] HospitalHicdeufYANXREFWPF8379-95-93 12:50:00 Test Item Value Reference Range Interpretation Comments Etoh (%) (test code = Etoh (%)) no gt [facility] [id number] 12:50:00 Test Item Value Reference Range Interpretation Comments ABO/Rh (test code = ABO/Rh) O POS [facility] [id number] 12:50:00 Test Item Value Reference Range Interpretation Comments Antibody Scrn (test Negative (11/21/22 6:50 code = Antibody Scrn) AM) [facility] [id number] 12:50:00 Test Item Value Reference Range Interpretation Comments ABO/Rh (test code = ABO/Rh) O POS [facility] [id number] 12:50:00 Test Item Value Reference Range Interpretation Comments Antibody Scrn (test Negative (11/21/22 6:50 code = Antibody Scrn) AM) [facility]CARDIAC [id number] 12:50:00 Test Item Value Reference Range Interpretation Comments HS Troponin I (test code = HS Troponin 15 I) [facility] [employer] [id number] 12:50:00 Test Item Value Reference Range Interpretation Comments Glucose Lvl (test code = Glucose Lvl) 99 70-99 [facility] [employer]2023-02-21 12:50:00 Test Item Value Reference Range Interpretation Comments BUN (test code = BUN) 38 7-22 [facility] [employer] [id number] 12:50:00 Test Item Value Reference Range Interpretation Comments Creatinine Lvl (test code = Creatinine 2.38 0.50-1.40 Lvl) [facility] [employer] [id number] 12:50:00 Test Item Value Reference Range Interpretation Comments Sodium Lvl (test code = Sodium Lvl) 140 135-145 [facility] [employer]2023-02-21 12:50:00 Test Item Value Reference Range Interpretation Comments Potassium Lvl (test code = Potassium 3.9 3.5-5.1 Lvl) [facility] [employer] [id number] 12:50:00 Test Item Value Reference Range Interpretation Comments Chloride Lvl (test code = Chloride Lvl) 107 95-109 [facility] [employer]2023-02-21 12:50:00 Test Item Value Reference Range Interpretation Comments CO2 (test code = CO2) 27 24-32 [facility] [employer]2023-02-21 12:50:00 Test Item Value Reference Range Interpretation Comments Calcium Lvl (test code = Calcium Lvl) 8.1 8.5-10.5 [facility] [employer]2023-02-21 12:50:00 Test Item Value Reference Range Interpretation Comments AGAP (test code = AGAP) 9.9 10.0-20.0 [facility] [id number] 12:50:00 Test Item Value Reference Range Interpretation Comments eGFR (test code = eGFR) 20 [facility] [id number] 12:50:00 Test Item Value Reference Range Interpretation Comments Lactic Acid Lvl (test code = Lactic 0.7 0.5-2.2 Acid Lvl) [facility] HospitalFLEx Lighting [place] [id number] 12:50:00 Test Item Value Reference Range Interpretation Comments Total Protein (test code = Total 6.1 6.4-8.4 Protein) [facility] [id number] 12:50:00 Test Item Value Reference Range Interpretation Comments Albumin Lvl (test code = Albumin Lvl) 2.9 3.5-5.0 [facility] [id number] 12:50:00 Test Item Value Reference Range Interpretation Comments Globulin (test code = Globulin) 3.2 2.7-4.2 [facility] [id number] 12:50:00 Test Item Value Reference Range Interpretation Comments A/G Ratio (test code = A/G Ratio) 0.9 1 0.7-1.6 [facility] [id number] 12:50:00 Test Item Value Reference Range Interpretation Comments ALT (test code = ALT) 16 See_Comment [Auto mated message] The system which ge nerated this result transmit sheba reference range : <=65. The reference range was not used to interpr et this result as edy l/abnormal. [facility] [employer] [id number] 12:50:00 Test Item Value Reference Range Interpretation Comments AST (test code = AST) 15 See_Comment [Auto mated message] The system which ge nerated this result transmit sheba reference range : <=37. The reference range was not used to interpr et this result as edy l/abnormal. [facility] [employer] [id number] 12:50:00 Test Item Value Reference Range Interpretation Comments Alk Phos (test code = Alk Phos) 96 39-136 [facility]TV[facility] [id number] 12:50:00 Test Item Value Reference Range Interpretation Comments Bili Total (test code = Bili Total) 0.2 0.2-1.3 [facility] [id number] 12:50:00 Test Item Value Reference Range Interpretation Comments Bili Direct (test code no gt See_Comment [Aut omated message] The = Bili Direct) system which generated this result tra nsmitted reference range : <=0.3. The reference r christiano was not used to int erpret this result as edy l/abnormal. [facility] HospitalOn[facility] [id number] 12:50:00 Test Item Value Reference Range Interpretation Comments Bili Indirect Unable to See_Comment [Automated (test code = Bili Calculate message] T he system Indirect) which generated this result transmitted reference range : <=1.0. The reference range was not used to interpret this result as normal/abnormal . [facility] HospitalWwxsiawHKOKURBAF8329-97-78 12:50:00 Test Item Value Reference Range Interpretation Comments Ethanol Lvl (test code = Ethanol Lvl) no gt [facility] CenterRxowroqZDUBSXSGP5869-97-28 12:50:00 Test Item Value Reference Range Interpretation Comments Etoh (%) (test code = Etoh (%)) no gt [facility] HospitalPwsmqofDXJMZKNCF8598-10-95 12:50:00 Test Item Value Reference Range Interpretation Comments Lactic Acid Lvl (test code = Lactic 0.7 0.5-2.2 Acid Lvl) [facility] CenterEcpzwfyJXJHKCJPQ8044-04-13 12:50:00 Test Item Value Reference Range Interpretation Comments Total Protein (test code = Total 6.1 6.4-8.4 Protein) [facility] CenterTwckwprKYBSTGYIV2585-30-93 12:50:00 Test Item Value Reference Range Interpretation Comments Albumin Lvl (test code = Albumin Lvl) 2.9 3.5-5.0 [facility] H[id number] 12:50:00 Test Item Value Reference Range Interpretation Comments Globulin (test code = Globulin) 3.2 2.7-4.2 [facility] [id number] 12:50:00 Test Item Value Reference Range Interpretation Comments A/G Ratio (test code = A/G Ratio) 0.9 1 0.7-1.6 [place] [address]-02-21 12:50:00 Test Item Value Reference Range Interpretation Comments ALT (test code = ALT) 16 See_Comment [Auto mated message] The system which ge nerated this result transmit sheba reference range : <=65. The reference range was not used to interpr et this result as edy l/abnormal. [facility] HospitalQytadrkVCMBLCTYK7554-09-03 12:50:00 Test Item Value Reference Range Interpretation Comments AST (test code = AST) 15 See_Comment [Auto mated message] The system which ge nerated this result transmit sheba reference range : <=37. The reference range was not used to interpr et this result as edy l/abnormal. [facility] HospitalEubflbkBDNSZPXBK8465-89-44 12:50:00 Test Item Value Reference Range Interpretation Comments Alk Phos (test code = Alk Phos) 96 39-136 [facility] CenterFdagwdtCLFBKJOYZ6633-53-64 12:50:00 Test Item Value Reference Range Interpretation Comments Bili Total (test code = Bili Total) 0.2 0.2-1.3 [facility] CenterFzmvdjjILPFJZVFS2509-36-10 12:50:00 Test Item Value Reference Range Interpretation Comments Bili Direct (test code no gt See_Comment [Aut omated message] The = Bili Direct) system which generated this result tra nsmitted reference range : <=0.3. The reference r christiano was not used to int erpret this result as edy l/abnormal. [facility] [id number] 12:50:00 Test Item Value Reference Range Interpretation Comments Bili Indirect Unable to See_Comment [Automated (test code = Bili Calculate message] T he system Indirect) which generated this result transmitted reference range : <=1.0. The reference range was not used to interpret this result as normal/abnormal . [facility] HospitalPefsczjQYDFNLLDN0394-79-59 12:50:00 Test Item Value Reference Range Interpretation Comments HS Troponin I (test code = HS Troponin 15 I) [facility] CenterYmfflcuOPAJRVDTL9802-30-95 12:50:00 Test Item Value Reference Range Interpretation Comments pH Justin (test code = pH Justin) 7.35 1 7.28-7.42 [place] 711743-02-21 12:50:00 Test Item Value Reference Range Interpretation Comments pCO2 Justin (test code = pCO2 Justin) 55 38-52 [place] 711743-02-21 12:50:00 Test Item Value Reference Range Interpretation Comments pO2 Justin (test code = pO2 Justin) 43 20-49 [place] 711743-02-21 12:50:00 Test Item Value Reference Range Interpretation Comments HCO3 Justin (test code = HCO3 Justin) 30 22-26 [place] 711743-02-21 12:50:00 Test Item Value Reference Range Interpretation Comments BE Justin (test code = BE Justin) 3 -2-2 [place] 711743-02-21 12:50:00 Test Item Value Reference Range Interpretation Comments O2 Sat Justin (calc) (test code = O2 Sat 75.9 40.0-70.0 Justin (calc)) [place] 711743-02-21 12:50:00 Test Item Value Reference Range Interpretation Comments Temp Justin (test code = Temp Justin) 37.0 [place] 638193-02-21 12:50:00 Test Item Value Reference Range Interpretation Comments ACT (TEG) Rapid (test code = ACT (TEG) 113 s 86-118 Rapid) [place] 638193-02-21 12:50:00 Test Item Value Reference Range Interpretation Comments Split Point Rapid (test code = Split 0.6 min Point Rapid) [place] 638193-02-21 12:50:00 Test Item Value Reference Range Interpretation Comments R-time Rapid (test code = R-time 0.7 min 0.4-0.7 Rapid) [place] 638193-02-21 12:50:00 Test Item Value Reference Range Interpretation Comments K-time Rapid (test code = K-time 1.1 min 0.6-2.3 Rapid) [place] 638193-02-21 12:50:00 Test Item Value Reference Range Interpretation Comments Angle Rapid (test code = Angle 78 degrees 64-80 Rapid) [place] 638193-02-21 12:50:00 Test Item Value Reference Range Interpretation Comments Max Amplitude Rapid (test code = Max 65 mm 52-71 Amplitude Rapid) [place] 638193-02-21 12:50:00 Test Item Value Reference Range Interpretation Comments G-value Rapid (test code = G-value 9.2 5.0-11.6 Rapid) [place] 638193-02-21 12:50:00 Test Item Value Reference Range Interpretation Comments Estimated % Lysis Rapid 0.0 See_Comment [Au tomated message] The (test code = Estimated syste m which generated % Lysis Rapid) this result t ransmitted reference range : <=7.5. The reference r christiano was not used to int erpret this result as normal/abnormal . [facility]94[facility]37 12:50:00 Test Item Value Reference Range Interpretation Comments Plt Morph (test code = See Note 1(11/21/22 Plt Morph) 6:50 AM) [place] 638193-02-21 12:50:00 Test Item Value Reference Range Interpretation Comments Stomatocyte (test code = Stomatocyte) slight [place] 638193-02-21 12:50:00 Test Item Value Reference Range Interpretation Comments WBC X 10x3 (test code = WBC X 10x3) 8.7 3.7-10.4 [place] 638193-02-21 12:50:00 Test Item Value Reference Range Interpretation Comments RBC X 10x6 (test code = RBC X 10x6) 3.56 4.20-5.40 [place] 638193-02-21 12:50:00 Test Item Value Reference Range Interpretation Comments Hgb (test code = Hgb) 10.4 12.0-16.0 [place] [address]-02-21 12:50:00 Test Item Value Reference Range Interpretation Comments Hct (test code = Hct) 32.3 36.0-48.0 [place] 638193-02-21 12:50:00 Test Item Value Reference Range Interpretation Comments MCV (test code = MCV) 90.8 80.0-98.0 [place] 638193-02-21 12:50:00 Test Item Value Reference Range Interpretation Comments MCH (test code = MCH) 29.3 pg 27.0-31.0 [place] 638193-02-21 12:50:00 Test Item Value Reference Range Interpretation Comments MCHC (test code = MCHC) 32.2 32.0-36.0 [place] [address]-02-21 12:50:00 Test Item Value Reference Range Interpretation Comments RDW (test code = RDW) 13.7 11.5-14.5 [place] [address]-02-21 12:50:00 Test Item Value Reference Range Interpretation Comments Platelet (test code = Platelet) 137 133-450 [place] 638193-02-21 12:50:00 Test Item Value Reference Range Interpretation Comments MPV (test code = MPV) 7.9 7.4-10.4 [place] 638193-02-21 12:50:00 Test Item Value Reference Range Interpretation Comments ACT (TEG) Rapid (test code = ACT (TEG) 113 s 86-118 Rapid) [place] 638193-02-21 12:50:00 Test Item Value Reference Range Interpretation Comments Split Point Rapid (test code = Split 0.6 min Point Rapid) [facility]CmnoeorZIRBFUMZQA6480-60-18 12:50:00 Test Item Value Reference Range Interpretation Comments R-time Rapid (test code = R-time 0.7 min 0.4-0.7 Rapid) [place] 638193-02-21 12:50:00 Test Item Value Reference Range Interpretation Comments K-time Rapid (test code = K-time 1.1 min 0.6-2.3 Rapid) [place] 638193-02-21 12:50:00 Test Item Value Reference Range Interpretation Comments Angle Rapid (test code = Angle 78 degrees 64-80 Rapid) [facility]FffztpnNJXZAFHYNW0551-01-36 12:50:00 Test Item Value Reference Range Interpretation Comments Max Amplitude Rapid (test code = Max 65 mm 52-71 Amplitude Rapid) [facility] HospitalChyxqyqVFEJEYEQWU2247-18-91 12:50:00 Test Item Value Reference Range Interpretation Comments G-value Rapid (test code = G-value 9.2 5.0-11.6 Rapid) [place] 638193-02-21 12:50:00 Test Item Value Reference Range Interpretation Comments Estimated % Lysis Rapid 0.0 See_Comment [Au tomated message] The (test code = Estimated syste m which generated % Lysis Rapid) this result t ransmitted reference range : <=7.5. The reference r christiano was not used to int erpret this result as normal/abnormal . [facility] HospitalRbocrzaXOLJVWWMXU6415-73-83 12:50:00 Test Item Value Reference Range Interpretation Comments Plt Morph (test code = See Note 1(11/21/22 Plt Morph) 6:50 AM) [place] 638193-02-21 12:50:00 Test Item Value Reference Range Interpretation Comments Segs (test code = Segs) 64.1 45.0-75.0 [place] 638193-02-21 12:50:00 Test Item Value Reference Range Interpretation Comments Lymphocytes (test code = Lymphocytes) 22.0 20.0-40.0 [place] 638193-02-21 12:50:00 Test Item Value Reference Range Interpretation Comments Monocytes (test code = Monocytes) 8.3 2.0-12.0 [place] 638193-02-21 12:50:00 Test Item Value Reference Range Interpretation Comments Eosinophils (test code = 4.7 See_Comment [A utomated message] The Eosinophils) system which ge nerated this result tra nsmitted reference range : <=4.0. The reference r christiano was not used to int erpret this result as normal/abnormal . [place] 638193-02-21 12:50:00 Test Item Value Reference Range Interpretation Comments Basophils (test code = 0.9 See_Comment [Aut omated message] The Basophils) system which ge nerated this result tra nsmitted reference range : <=1.0. The reference r christiano was not used to int erpret this result as normal/abnormal . [facility] HospitalAxqhtanYWZRZQJKFY2611-16-01 12:50:00 Test Item Value Reference Range Interpretation Comments Neutrophils # (test code = Neutrophils 5.6 1.5-8.1 #) [facility] HospitalMpswgocCUTGIBMAZO2445-87-29 12:50:00 Test Item Value Reference Range Interpretation Comments Lymphocytes # (test code = Lymphocytes 1.9 1.0-5.5 #) [place] 638193-02-21 12:50:00 Test Item Value Reference Range Interpretation Comments Monocytes # (test code 0.7 See_Comment [Aut omated message] The = Monocytes #) system which generated this result tra nsmitted reference range : <=0.8. The reference r christiano was not used to int erpret this result as normal/abnormal . [place] 638193-02-21 12:50:00 Test Item Value Reference Range Interpretation Comments Eosinophils # (test code 0.4 See_Comment [A utomated message] The = Eosinophils #) system whic h generated this result tra nsmitted reference range : <=0.5. The reference r christiano was not used to int erpret this result as normal/abnormal . [place] 638193-02-21 12:50:00 Test Item Value Reference Range Interpretation Comments Basophils # (test code 0.1 See_Comment [Aut omated message] The = Basophils #) system which generated this result tra nsmitted reference range : <=0.2. The reference r christiano was not used to int erpret this result as normal/abnormal . [facility] RlwlvloGCVPTVRQVJ5772-04-37 12:50:00 Test Item Value Reference Range Interpretation Comments Stomatocyte (test code = Stomatocyte) slight [facility]LsfuggsSVSRMBHQGM2700-89-10 12:50:00 Test Item Value Reference Range Interpretation Comments Ethanol Lvl (test code = Ethanol Lvl) no gt [facility] IwpbwklMXXRDBRRNO6599-63-40 12:50:00 Test Item Value Reference Range Interpretation Comments Etoh (%) (test code = Etoh (%)) no gt [facility] [id number] 12:50:00 Test Item Value Reference Range Interpretation Comments ABO/Rh (test code = ABO/Rh) O POS [facility] [employer] [id number] 12:50:00 Test Item Value Reference Range Interpretation Comments Antibody Scrn (test Negative (11/21/22 6:50 code = Antibody Scrn) AM) [facility] [employer] [id number] 12:50:00 Test Item Value Reference Range Interpretation Comments ABO/Rh (test code = ABO/Rh) O POS [facility] [employer] [id number] 12:50:00 Test Item Value Reference Range Interpretation Comments Antibody Scrn (test Negative (11/21/22 6:50 code = Antibody Scrn) AM) [facility] [employer]CARDIAC [id number] 12:50:00 Test Item Value Reference Range Interpretation Comments HS Troponin I (test code = HS Troponin 15 I) [facility] [employer] [id number] 12:50:00 Test Item Value Reference Range Interpretation Comments Glucose Lvl (test code = Glucose Lvl) 99 70-99 [facility] [employer] [id number] 12:50:00 Test Item Value Reference Range Interpretation Comments BUN (test code = BUN) 38 7-22 [facility] [employer] [id number] 12:50:00 Test Item Value Reference Range Interpretation Comments Creatinine Lvl (test code = Creatinine 2.38 0.50-1.40 Lvl) [facility]2023-02-21 12:50:00 Test Item Value Reference Range Interpretation Comments Sodium Lvl (test code = Sodium Lvl) 140 135-145 [place] 218493-02-21 12:50:00 Test Item Value Reference Range Interpretation Comments Potassium Lvl (test code = Potassium 3.9 3.5-5.1 Lvl) [place] 218493-02-21 12:50:00 Test Item Value Reference Range Interpretation Comments Chloride Lvl (test code = Chloride Lvl) 107 95-109 [place] 218493-02-21 12:50:00 Test Item Value Reference Range Interpretation Comments CO2 (test code = CO2) 27 24-32 [place] 218493-02-21 12:50:00 Test Item Value Reference Range Interpretation Comments Calcium Lvl (test code = Calcium Lvl) 8.1 8.5-10.5 [place] 218493-02-21 12:50:00 Test Item Value Reference Range Interpretation Comments AGAP (test code = AGAP) 9.9 10.0-20.0 [facility]2023-02-21 12:50:00 Test Item Value Reference Range Interpretation Comments eGFR (test code = eGFR) 20 [place] 218493-02-21 12:50:00 Test Item Value Reference Range Interpretation Comments Lactic Acid Lvl (test code = Lactic 0.7 0.5-2.2 Acid Lvl) [place] 218493-02-21 12:50:00 Test Item Value Reference Range Interpretation Comments Total Protein (test code = Total 6.1 6.4-8.4 Protein) [place] 218493-02-21 12:50:00 Test Item Value Reference Range Interpretation Comments Albumin Lvl (test code = Albumin Lvl) 2.9 3.5-5.0 [place] 218493-02-21 12:50:00 Test Item Value Reference Range Interpretation Comments Globulin (test code = Globulin) 3.2 2.7-4.2 [place] 218493-02-21 12:50:00 Test Item Value Reference Range Interpretation Comments A/G Ratio (test code = A/G Ratio) 0.9 1 0.7-1.6 [facility] [employer] [id number] 12:50:00 Test Item Value Reference Range Interpretation Comments ALT (test code = ALT) 16 See_Comment [Auto mated message] The system which ge nerated this result transmit sheba reference range : <=65. The reference range was not used to interpr et this result as edy l/abnormal. [facility]TV[facility] [id number] 12:50:00 Test Item Value Reference Range Interpretation Comments AST (test code = AST) 15 See_Comment [Auto mated message] The system which ge nerated this result transmit sheba reference range : <=37. The reference range was not used to interpr et this result as edy l/abnormal. [facility] [employer] [id number] 12:50:00 Test Item Value Reference Range Interpretation Comments Alk Phos (test code = Alk Phos) 96 39-136 [facility]TV[facility] [id number] 12:50:00 Test Item Value Reference Range Interpretation Comments Bili Total (test code = Bili Total) 0.2 0.2-1.3 [facility] [id number] 12:50:00 Test Item Value Reference Range Interpretation Comments Bili Direct (test code no gt See_Comment [Aut omated message] The = Bili Direct) system which generated this result tra nsmitted reference range : <=0.3. The reference r christiano was not used to int erpret this result as edy l/abnormal. [facility] [id number] 12:50:00 Test Item Value Reference Range Interpretation Comments Bili Indirect Unable to See_Comment [Automated (test code = Bili Calculate message] T he system Indirect) which generated this result transmitted reference range : <=1.0. The reference range was not used to interpret this result as normal/abnormal . [facility] HospitalBpnuohhTKHAXAFVW1637-89-15 12:50:00 Test Item Value Reference Range Interpretation Comments Ethanol Lvl (test code = Ethanol Lvl) no gt [facility]YyzecmqEJXNRHOJK4663-73-72 12:50:00 Test Item Value Reference Range Interpretation Comments Etoh (%) (test code = Etoh (%)) no [facility]UCRSTIO[facility]-95 12:50:00 Test Item Value Reference Range Interpretation Comments Lactic Acid Lvl (test code = Lactic 0.7 0.5-2.2 Acid Lvl) [facility]PlybpspZGEAELNWG0597-42-71 12:50:00 Test Item Value Reference Range Interpretation Comments Total Protein (test code = Total 6.1 6.4-8.4 Protein) [facility] CenterOspvysmRDSBMIHJF1890-15-29 12:50:00 Test Item Value Reference Range Interpretation Comments Albumin Lvl (test code = Albumin Lvl) 2.9 3.5-5.0 [place] [address]-02-21 12:50:00 Test Item Value Reference Range Interpretation Comments Globulin (test code = Globulin) 3.2 2.7-4.2 [place] [address]-02-21 12:50:00 Test Item Value Reference Range Interpretation Comments A/G Ratio (test code = A/G Ratio) 0.9 1 0.7-1.6 [place] [address]-02-21 12:50:00 Test Item Value Reference Range Interpretation Comments ALT (test code = ALT) 16 See_Comment [Auto mated message] The system which ge nerated this result transmit sheba reference range : <=65. The reference range was not used to interpr et this result as edy l/abnormal. [facility] CenterDlpxtdbTRIETYCPA2796-05-07 12:50:00 Test Item Value Reference Range Interpretation Comments AST (test code = AST) 15 See_Comment [Auto mated message] The system which ge nerated this result transmit sheba reference range : <=37. The reference range was not used to interpr et this result as edy l/abnormal. [facility] CenterBbncdkfOVZKNBRUH9224-07-63 12:50:00 Test Item Value Reference Range Interpretation Comments Alk Phos (test code = Alk Phos) 96 39-136 [place] [address]-02-21 12:50:00 Test Item Value Reference Range Interpretation Comments Bili Total (test code = Bili Total) 0.2 0.2-1.3 [place] [address]-02-21 12:50:00 Test Item Value Reference Range Interpretation Comments Bili Direct (test code no gt See_Comment [Aut omated message] The = Bili Direct) system which generated this result tra nsmitted reference range : <=0.3. The reference r christiano was not used to int erpret this result as edy l/abnormal. [facility] CenterMzusqfwKBLGDOQRC5604-89-93 12:50:00 Test Item Value Reference Range Interpretation Comments Bili Indirect Unable to See_Comment [Automated (test code = Bili Calculate message] T he system Indirect) which generated this result transmitted reference range : <=1.0. The reference range was not used to interpret this result as normal/abnormal . [place] 711743-02-21 12:50:00 Test Item Value Reference Range Interpretation Comments HS Troponin I (test code = HS Troponin 15 I) [facility] CenterFixbsqgRMUHNPNIT1397-15-35 12:50:00 Test Item Value Reference Range Interpretation Comments pH Justin (test code = pH Justin) 7.35 1 7.28-7.42 [place] [address]-02-21 12:50:00 Test Item Value Reference Range Interpretation Comments pCO2 Justin (test code = pCO2 Justin) 55 38-52 [place] 711743-02-21 12:50:00 Test Item Value Reference Range Interpretation Comments pO2 Justin (test code = pO2 Justin) 43 20-49 [place] 711743-02-21 12:50:00 Test Item Value Reference Range Interpretation Comments HCO3 Justin (test code = HCO3 Justin) 30 22-26 [place] 711743-02-21 12:50:00 Test Item Value Reference Range Interpretation Comments BE Justin (test code = BE Justin) 3 -2-2 [place] 711743-02-21 12:50:00 Test Item Value Reference Range Interpretation Comments O2 Sat Justin (calc) (test code = O2 Sat 75.9 40.0-70.0 Justin (calc)) [facility] CenterGytmworBZYNNLCVS7829-08-97 12:50:00 Test Item Value Reference Range Interpretation Comments Temp Justin (test code = Temp Jsutin) 37.0 [place] 638193-02-21 12:50:00 Test Item Value Reference Range Interpretation Comments ACT (TEG) Rapid (test code = ACT (TEG) 113 s 86-118 Rapid) [place] 638193-02-21 12:50:00 Test Item Value Reference Range Interpretation Comments Split Point Rapid (test code = Split 0.6 min Point Rapid) [place] 638193-02-21 12:50:00 Test Item Value Reference Range Interpretation Comments R-time Rapid (test code = R-time 0.7 min 0.4-0.7 Rapid) [place] [address]-02-21 12:50:00 Test Item Value Reference Range Interpretation Comments K-time Rapid (test code = K-time 1.1 min 0.6-2.3 Rapid) [place] [address]-02-21 12:50:00 Test Item Value Reference Range Interpretation Comments Angle Rapid (test code = Angle 78 degrees 64-80 Rapid) [place] [address]-02-21 12:50:00 Test Item Value Reference Range Interpretation Comments Max Amplitude Rapid (test code = Max 65 mm 52-71 Amplitude Rapid) [place] [address]-02-21 12:50:00 Test Item Value Reference Range Interpretation Comments G-value Rapid (test code = G-value 9.2 5.0-11.6 Rapid) [place] [address]-02-21 12:50:00 Test Item Value Reference Range Interpretation Comments Estimated % Lysis Rapid 0.0 See_Comment [Au tomated message] The (test code = Estimated syste m which generated % Lysis Rapid) this result t ransmitted reference range : <=7.5. The reference r christiano was not used to int erpret this result as normal/abnormal . [facility] HospitalZcjpnxqFKTVUHMYSO8527-69-14 12:50:00 Test Item Value Reference Range Interpretation Comments Plt Morph (test code = See Note 1(11/21/22 Plt Morph) 6:50 AM) [place] [address]-02-21 12:50:00 Test Item Value Reference Range Interpretation Comments Stomatocyte (test code = Stomatocyte) slight [place] [address]-02-21 12:50:00 Test Item Value Reference Range Interpretation Comments WBC X 10x3 (test code = WBC X 10x3) 8.7 3.7-10.4 [place] [address]-02-21 12:50:00 Test Item Value Reference Range Interpretation Comments RBC X 10x6 (test code = RBC X 10x6) 3.56 4.20-5.40 [place] [address]-02-21 12:50:00 Test Item Value Reference Range Interpretation Comments Hgb (test code = Hgb) 10.4 12.0-16.0 [place] [address]-02-21 12:50:00 Test Item Value Reference Range Interpretation Comments Hct (test code = Hct) 32.3 36.0-48.0 [place] [address]-02-21 12:50:00 Test Item Value Reference Range Interpretation Comments MCV (test code = MCV) 90.8 80.0-98.0 [place] [address]-02-21 12:50:00 Test Item Value Reference Range Interpretation Comments MCH (test code = MCH) 29.3 pg 27.0-31.0 [place] [address]-02-21 12:50:00 Test Item Value Reference Range Interpretation Comments MCHC (test code = MCHC) 32.2 32.0-36.0 [place] [address]-02-21 12:50:00 Test Item Value Reference Range Interpretation Comments RDW (test code = RDW) 13.7 11.5-14.5 [place] [address]-02-21 12:50:00 Test Item Value Reference Range Interpretation Comments Platelet (test code = Platelet) 137 133-450 [place] [address]-02-21 12:50:00 Test Item Value Reference Range Interpretation Comments MPV (test code = MPV) 7.9 7.4-10.4 [place] [address]-02-21 12:50:00 Test Item Value Reference Range Interpretation Comments ACT (TEG) Rapid (test code = ACT (TEG) 113 s 86-118 Rapid) [place] [address]-02-21 12:50:00 Test Item Value Reference Range Interpretation Comments Split Point Rapid (test code = Split 0.6 min Point Rapid) [place] [address]-02-21 12:50:00 Test Item Value Reference Range Interpretation Comments R-time Rapid (test code = R-time 0.7 min 0.4-0.7 Rapid) [place] [address]-02-21 12:50:00 Test Item Value Reference Range Interpretation Comments K-time Rapid (test code = K-time 1.1 min 0.6-2.3 Rapid) [place] [address]-02-21 12:50:00 Test Item Value Reference Range Interpretation Comments Angle Rapid (test code = Angle 78 degrees 64-80 Rapid) [place] [address]-02-21 12:50:00 Test Item Value Reference Range Interpretation Comments Max Amplitude Rapid (test code = Max 65 mm 52-71 Amplitude Rapid) [place] 638193-02-21 12:50:00 Test Item Value Reference Range Interpretation Comments G-value Rapid (test code = G-value 9.2 5.0-11.6 Rapid) [place] 638193-02-21 12:50:00 Test Item Value Reference Range Interpretation Comments Estimated % Lysis Rapid 0.0 See_Comment [Au tomated message] The (test code = Estimated syste m which generated % Lysis Rapid) this result t ransmitted reference range : <=7.5. The reference r christiano was not used to int erpret this result as normal/abnormal . [place] 638193-02-21 12:50:00 Test Item Value Reference Range Interpretation Comments Plt Morph (test code = See Note 1(11/21/22 Plt Morph) 6:50 AM) [place] 638193-02-21 12:50:00 Test Item Value Reference Range Interpretation Comments Segs (test code = Segs) 64.1 45.0-75.0 [place] 638193-02-21 12:50:00 Test Item Value Reference Range Interpretation Comments Lymphocytes (test code = Lymphocytes) 22.0 20.0-40.0 [place] 638193-02-21 12:50:00 Test Item Value Reference Range Interpretation Comments Monocytes (test code = Monocytes) 8.3 2.0-12.0 [place] 638193-02-21 12:50:00 Test Item Value Reference Range Interpretation Comments Eosinophils (test code = 4.7 See_Comment [A utomated message] The Eosinophils) system which ge nerated this result tra nsmitted reference range : <=4.0. The reference r christiano was not used to int erpret this result as normal/abnormal . [place] 638193-02-21 12:50:00 Test Item Value Reference Range Interpretation Comments Basophils (test code = 0.9 See_Comment [Aut omated message] The Basophils) system which ge nerated this result tra nsmitted reference range : <=1.0. The reference r christiano was not used to int erpret this result as normal/abnormal . [place] 638193-02-21 12:50:00 Test Item Value Reference Range Interpretation Comments Neutrophils # (test code = Neutrophils 5.6 1.5-8.1 #) [facility] HospitalOusivxgUMDOUGROVM0243-55-46 12:50:00 Test Item Value Reference Range Interpretation Comments Lymphocytes # (test code = Lymphocytes 1.9 1.0-5.5 #) [facility] HospitalMhgngtuMYGLZSECHK0754-78-29 12:50:00 Test Item Value Reference Range Interpretation Comments Monocytes # (test code 0.7 See_Comment [Aut omated message] The = Monocytes #) system which generated this result tra nsmitted reference range : <=0.8. The reference r christiano was not used to int erpret this result as normal/abnormal . [facility] HospitalJghvwurZFDBIUSHRC8709-83-00 12:50:00 Test Item Value Reference Range Interpretation Comments Eosinophils # (test code 0.4 See_Comment [A utomated message] The = Eosinophils #) system whic h generated this result tra nsmitted reference range : <=0.5. The reference r christiano was not used to int erpret this result as normal/abnormal . [facility] HospitalOpcerzwZKXCUJGZVE3617-22-06 12:50:00 Test Item Value Reference Range Interpretation Comments Basophils # (test code 0.1 See_Comment [Aut omated message] The = Basophils #) system which generated this result tra nsmitted reference range : <=0.2. The reference r christiano was not used to int erpret this result as normal/abnormal . [facility] HospitalVaqcvtbJZHXOBPAQW9513-68-47 12:50:00 Test Item Value Reference Range Interpretation Comments Stomatocyte (test code = Stomatocyte) slight [facility] HospitalJubzxdiIZFUADLHGG8870-83-65 12:50:00 Test Item Value Reference Range Interpretation Comments Ethanol Lvl (test code = Ethanol Lvl) no gt [facility] HospitalIofpddvXXXTUSUHWS9465-21-01 12:50:00 Test Item Value Reference Range Interpretation Comments Etoh (%) (test code = Etoh (%)) no gt [facility] [id number] 12:50:00 Test Item Value Reference Range Interpretation Comments ABO/Rh (test code = ABO/Rh) O POS [facility] [id number] 12:50:00 Test Item Value Reference Range Interpretation Comments Antibody Scrn (test Negative (11/21/22 6:50 code = Antibody Scrn) AM) [facility] [id number] 12:50:00 Test Item Value Reference Range Interpretation Comments ABO/Rh (test code = ABO/Rh) O POS [facility] [id number] 12:50:00 Test Item Value Reference Range Interpretation Comments Antibody Scrn (test Negative (11/21/22 6:50 code = Antibody Scrn) AM) [facility] [id number] 12:50:00 Test Item Value Reference Range Interpretation Comments HS Troponin I (test code = HS Troponin 15 I) [facility] [id number] 12:50:00 Test Item Value Reference Range Interpretation Comments Glucose Lvl (test code = Glucose Lvl) 99 70-99 [facility] [id number] 12:50:00 Test Item Value Reference Range Interpretation Comments BUN (test code = BUN) 38 7-22 [facility] [id number] 12:50:00 Test Item Value Reference Range Interpretation Comments Creatinine Lvl (test code = Creatinine 2.38 0.50-1.40 Lvl) [facility] [id number] 12:50:00 Test Item Value Reference Range Interpretation Comments Sodium Lvl (test code = Sodium Lvl) 140 135-145 [facility] [id number] 12:50:00 Test Item Value Reference Range Interpretation Comments Potassium Lvl (test code = Potassium 3.9 3.5-5.1 Lvl) [facility] [id number] 12:50:00 Test Item Value Reference Range Interpretation Comments Chloride Lvl (test code = Chloride Lvl) 107 95-109 [facility] [id number] 12:50:00 Test Item Value Reference Range Interpretation Comments CO2 (test code = CO2) 27 24-32 [facility] [id number] 12:50:00 Test Item Value Reference Range Interpretation Comments Calcium Lvl (test code = Calcium Lvl) 8.1 8.5-10.5 [facility] [id number] 12:50:00 Test Item Value Reference Range Interpretation Comments AGAP (test code = AGAP) 9.9 10.0-20.0 [place] [address]-02-21 12:50:00 Test Item Value Reference Range Interpretation Comments eGFR (test code = eGFR) 20 [place] 218493-02-21 12:50:00 Test Item Value Reference Range Interpretation Comments Lactic Acid Lvl (test code = Lactic 0.7 0.5-2.2 Acid Lvl) [place] [address]-02-21 12:50:00 Test Item Value Reference Range Interpretation Comments Total Protein (test code = Total 6.1 6.4-8.4 Protein) [place] [address]-02-21 12:50:00 Test Item Value Reference Range Interpretation Comments Albumin Lvl (test code = Albumin Lvl) 2.9 3.5-5.0 [place] 218493-02-21 12:50:00 Test Item Value Reference Range Interpretation Comments Globulin (test code = Globulin) 3.2 2.7-4.2 [place] 218493-02-21 12:50:00 Test Item Value Reference Range Interpretation Comments A/G Ratio (test code = A/G Ratio) 0.9 1 0.7-1.6 [place] [address]-02-21 12:50:00 Test Item Value Reference Range Interpretation Comments ALT (test code = ALT) 16 See_Comment [Auto mated message] The system which ge nerated this result transmit sheba reference range : <=65. The reference range was not used to interpr et this result as edy l/abnormal. [facility] [id number] 12:50:00 Test Item Value Reference Range Interpretation Comments AST (test code = AST) 15 See_Comment [Auto mated message] The system which ge nerated this result transmit sheba reference range : <=37. The reference range was not used to interpr et this result as edy l/abnormal. [facility] [id number] 12:50:00 Test Item Value Reference Range Interpretation Comments Alk Phos (test code = Alk Phos) 96 39-136 [facility] [id number] 12:50:00 Test Item Value Reference Range Interpretation Comments Bili Total (test code = Bili Total) 0.2 0.2-1.3 [facility] [id number] 12:50:00 Test Item Value Reference Range Interpretation Comments Bili Direct (test code no gt See_Comment [Aut omated message] The = Bili Direct) system which generated this result tra nsmitted reference range : <=0.3. The reference r christiano was not used to int erpret this result as edy l/abnormal. [facility]2023-02-21 12:50:00 Test Item Value Reference Range Interpretation Comments Bili Indirect Unable to See_Comment [Automated (test code = Bili Calculate message] T he system Indirect) which generated this result transmitted reference range : <=1.0. The reference range was not used to interpret this result as normal/abnormal . [id number] 12:50:00 Test Item Value Reference Range Interpretation Comments Ethanol Lvl (test code = Ethanol Lvl) no gt [place] 711743-02-21 12:50:00 Test Item Value Reference Range Interpretation Comments Etoh (%) (test code = Etoh (%)) no gt [facility] [id number] 12:50:00 Test Item Value Reference Range Interpretation Comments Lactic Acid Lvl (test code = Lactic 0.7 0.5-2.2 Acid Lvl) [facility] CenterMlbgcjuESKNECVQJ0725-85-01 12:50:00 Test Item Value Reference Range Interpretation Comments Total Protein (test code = Total 6.1 6.4-8.4 Protein) [place] [address]-02-21 12:50:00 Test Item Value Reference Range Interpretation Comments Albumin Lvl (test code = Albumin Lvl) 2.9 3.5-5.0 [facility] Hospi[id number] 12:50:00 Test Item Value Reference Range Interpretation Comments Globulin (test code = Globulin) 3.2 2.7-4.2 [place] [address]-02-21 12:50:00 Test Item Value Reference Range Interpretation Comments A/G Ratio (test code = A/G Ratio) 0.9 1 0.7-1.6 [place] [address]-02-21 12:50:00 Test Item Value Reference Range Interpretation Comments ALT (test code = ALT) 16 See_Comment [Auto mated message] The system which ge nerated this result transmit sheba reference range : <=65. The reference range was not used to interpr et this result as edy l/abnormal. [facility] CenterXdgelmrAKTBUIAJO8755-36-71 12:50:00 Test Item Value Reference Range Interpretation Comments AST (test code = AST) 15 See_Comment [Auto mated message] The system which ge nerated this result transmit sheba reference range : <=37. The reference range was not used to interpr et this result as edy l/abnormal. [facility] CenterHvmdzvlEFPIEVWCF5787-52-32 12:50:00 Test Item Value Reference Range Interpretation Comments Alk Phos (test code = Alk Phos) 96 39-136 [place] 711743-02-21 12:50:00 Test Item Value Reference Range Interpretation Comments Bili Total (test code = Bili Total) 0.2 0.2-1.3 [place] 711743-02-21 12:50:00 Test Item Value Reference Range Interpretation Comments Bili Direct (test code no gt See_Comment [Aut omated message] The = Bili Direct) system which generated this result tra nsmitted reference range : <=0.3. The reference r christiano was not used to int erpret this result as edy l/abnormal. [facility] [id number] 12:50:00 Test Item Value Reference Range Interpretation Comments Bili Indirect Unable to See_Comment [Automated (test code = Bili Calculate message] T he system Indirect) which generated this result transmitted reference range : <=1.0. The reference range was not used to interpret this result as normal/abnormal . [facility] [id number] 12:50:00 Test Item Value Reference Range Interpretation Comments HS Troponin I (test code = HS Troponin 15 I) [facility] CenterIqdnbutSVVDQUOJJ6322-25-93 12:50:00 Test Item Value Reference Range Interpretation Comments pH Justin (test code = pH Justin) 7.35 1 7.28-7.42 [place] 711743-02-21 12:50:00 Test Item Value Reference Range Interpretation Comments pCO2 Justin (test code = pCO2 Justin) 55 38-52 [place] 711743-02-21 12:50:00 Test Item Value Reference Range Interpretation Comments pO2 Justin (test code = pO2 Justin) 43 20-49 [place] 711743-02-21 12:50:00 Test Item Value Reference Range Interpretation Comments HCO3 Justin (test code = HCO3 Justin) 30 22-26 [place] 711743-02-21 12:50:00 Test Item Value Reference Range Interpretation Comments BE Justin (test code = BE Justin) 3 -2-2 [place] 711743-02-21 12:50:00 Test Item Value Reference Range Interpretation Comments O2 Sat Justin (calc) (test code = O2 Sat 75.9 40.0-70.0 Justin (calc)) [facility] CenterOwdmhqsREHGCNLLJ9255-44-31 12:50:00 Test Item Value Reference Range Interpretation Comments Temp Justin (test code = Temp Justin) 37.0 [place] 638193-02-21 12:50:00 Test Item Value Reference Range Interpretation Comments ACT (TEG) Rapid (test code = ACT (TEG) 113 s 86-118 Rapid) [place] 638193-02-21 12:50:00 Test Item Value Reference Range Interpretation Comments Split Point Rapid (test code = Split 0.6 min Point Rapid) [place] 638193-02-21 12:50:00 Test Item Value Reference Range Interpretation Comments R-time Rapid (test code = R-time 0.7 min 0.4-0.7 Rapid) [place] 638193-02-21 12:50:00 Test Item Value Reference Range Interpretation Comments K-time Rapid (test code = K-time 1.1 min 0.6-2.3 Rapid) [place] 638193-02-21 12:50:00 Test Item Value Reference Range Interpretation Comments Angle Rapid (test code = Angle 78 degrees 64-80 Rapid) [place] 638193-02-21 12:50:00 Test Item Value Reference Range Interpretation Comments Max Amplitude Rapid (test code = Max 65 mm 52-71 Amplitude Rapid) [place] 638193-02-21 12:50:00 Test Item Value Reference Range Interpretation Comments G-value Rapid (test code = G-value 9.2 5.0-11.6 Rapid) [place] 638193-02-21 12:50:00 Test Item Value Reference Range Interpretation Comments Estimated % Lysis Rapid 0.0 See_Comment [Au tomated message] The (test code = Estimated syste m which generated % Lysis Rapid) this result t ransmitted reference range : <=7.5. The reference r christiano was not used to int erpret this result as normal/abnormal . [place] 638193-02-21 12:50:00 Test Item Value Reference Range Interpretation Comments Plt Morph (test code = See Note 1(11/21/22 Plt Morph) 6:50 AM) [place] 638193-02-21 12:50:00 Test Item Value Reference Range Interpretation Comments Stomatocyte (test code = Stomatocyte) slight [place] 638193-02-21 12:50:00 Test Item Value Reference Range Interpretation Comments WBC X 10x3 (test code = WBC X 10x3) 8.7 3.7-10.4 [place] [address]-02-21 12:50:00 Test Item Value Reference Range Interpretation Comments RBC X 10x6 (test code = RBC X 10x6) 3.56 4.20-5.40 [place] 638193-02-21 12:50:00 Test Item Value Reference Range Interpretation Comments Hgb (test code = Hgb) 10.4 12.0-16.0 [place] 638193-02-21 12:50:00 Test Item Value Reference Range Interpretation Comments Hct (test code = Hct) 32.3 36.0-48.0 [place] 638193-02-21 12:50:00 Test Item Value Reference Range Interpretation Comments MCV (test code = MCV) 90.8 80.0-98.0 [place] [address]-02-21 12:50:00 Test Item Value Reference Range Interpretation Comments MCH (test code = MCH) 29.3 pg 27.0-31.0 [place] [address]-02-21 12:50:00 Test Item Value Reference Range Interpretation Comments MCHC (test code = MCHC) 32.2 32.0-36.0 [place] [address]-02-21 12:50:00 Test Item Value Reference Range Interpretation Comments RDW (test code = RDW) 13.7 11.5-14.5 [place] [address]-02-21 12:50:00 Test Item Value Reference Range Interpretation Comments Platelet (test code = Platelet) 137 133-450 [place] 638193-02-21 12:50:00 Test Item Value Reference Range Interpretation Comments MPV (test code = MPV) 7.9 7.4-10.4 [place] 638193-02-21 12:50:00 Test Item Value Reference Range Interpretation Comments ACT (TEG) Rapid (test code = ACT (TEG) 113 s 86-118 Rapid) [place] 638193-02-21 12:50:00 Test Item Value Reference Range Interpretation Comments Split Point Rapid (test code = Split 0.6 min Point Rapid) [place] 638193-02-21 12:50:00 Test Item Value Reference Range Interpretation Comments R-time Rapid (test code = R-time 0.7 min 0.4-0.7 Rapid) [place] 638193-02-21 12:50:00 Test Item Value Reference Range Interpretation Comments K-time Rapid (test code = K-time 1.1 min 0.6-2.3 Rapid) [place] 638193-02-21 12:50:00 Test Item Value Reference Range Interpretation Comments Angle Rapid (test code = Angle 78 degrees 64-80 Rapid) [facility]OL[facility]X6134[facility]30-67 12:50:00 Test Item Value Reference Range Interpretation Comments Max Amplitude Rapid (test code = Max 65 mm 52-71 Amplitude Rapid) [place] 638193-02-21 12:50:00 Test Item Value Reference Range Interpretation Comments G-value Rapid (test code = G-value 9.2 5.0-11.6 Rapid) [facility] HospitalVxtjfpoTKJZITICMD2162-02-83 12:50:00 Test Item Value Reference Range Interpretation Comments Estimated % Lysis Rapid 0.0 See_Comment [Au tomated message] The (test code = Estimated syste m which generated % Lysis Rapid) this result t ransmitted reference range : <=7.5. The reference r christiano was not used to int erpret this result as normal/abnormal . [facility] HospitalSarjmvqHUXEZMHHNT1747-00-65 12:50:00 Test Item Value Reference Range Interpretation Comments Plt Morph (test code = See Note 1(11/21/22 Plt Morph) 6:50 AM) [place] 638193-02-21 12:50:00 Test Item Value Reference Range Interpretation Comments Segs (test code = Segs) 64.1 45.0-75.0 [place] 638193-02-21 12:50:00 Test Item Value Reference Range Interpretation Comments Lymphocytes (test code = Lymphocytes) 22.0 20.0-40.0 [place] 638193-02-21 12:50:00 Test Item Value Reference Range Interpretation Comments Monocytes (test code = Monocytes) 8.3 2.0-12.0 [place] 638193-02-21 12:50:00 Test Item Value Reference Range Interpretation Comments Eosinophils (test code = 4.7 See_Comment [A utomated message] The Eosinophils) system which ge nerated this result tra nsmitted reference range : <=4.0. The reference r christiano was not used to int erpret this result as normal/abnormal . [place] [address]-02-21 12:50:00 Test Item Value Reference Range Interpretation Comments Basophils (test code = 0.9 See_Comment [Aut omated message] The Basophils) system which ge nerated this result tra nsmitted reference range : <=1.0. The reference r christiano was not used to int erpret this result as normal/abnormal . [facility] HospitalVuyqdqwDOEEFXJZBK8044-25-81 12:50:00 Test Item Value Reference Range Interpretation Comments Neutrophils # (test code = Neutrophils 5.6 1.5-8.1 #) [place] 638193-02-21 12:50:00 Test Item Value Reference Range Interpretation Comments Lymphocytes # (test code = Lymphocytes 1.9 1.0-5.5 #) [place] 638193-02-21 12:50:00 Test Item Value Reference Range Interpretation Comments Monocytes # (test code 0.7 See_Comment [Aut omated message] The = Monocytes #) system which generated this result tra nsmitted reference range : <=0.8. The reference r christiano was not used to int erpret this result as normal/abnormal . [place] 638193-02-21 12:50:00 Test Item Value Reference Range Interpretation Comments Eosinophils # (test code 0.4 See_Comment [A utomated message] The = Eosinophils #) system whic h generated this result tra nsmitted reference range : <=0.5. The reference r christiano was not used to int erpret this result as normal/abnormal . [place] 638193-02-21 12:50:00 Test Item Value Reference Range Interpretation Comments Basophils # (test code 0.1 See_Comment [Aut omated message] The = Basophils #) system which generated this result tra nsmitted reference range : <=0.2. The reference r christiano was not used to int erpret this result as normal/abnormal . [facility] DguifahXWPZAPXKAD4952-70-92 12:50:00 Test Item Value Reference Range Interpretation Comments Stomatocyte (test code = Stomatocyte) slight [facility] HospitalYhbcstrJJIUQHOHVR4835-49-75 12:50:00 Test Item Value Reference Range Interpretation Comments Ethanol Lvl (test code = Ethanol Lvl) no gt [facility] UgciaroGMZLWNQVGE3690-31-92 12:50:00 Test Item Value Reference Range Interpretation Comments Etoh (%) (test code = Etoh (%)) no gt [facility] [id number] 12:50:00 Test Item Value Reference Range Interpretation Comments ABO/Rh (test code = ABO/Rh) O POS [facility] [id number] 12:50:00 Test Item Value Reference Range Interpretation Comments Antibody Scrn (test Negative (11/21/22 6:50 code = Antibody Scrn) AM) [facility] [id number] 12:50:00 Test Item Value Reference Range Interpretation Comments ABO/Rh (test code = ABO/Rh) O POS [facility] [id number] 12:50:00 Test Item Value Reference Range Interpretation Comments Antibody Scrn (test Negative (11/21/22 6:50 code = Antibody Scrn) AM) [facility] [id number] 12:50:00 Test Item Value Reference Range Interpretation Comments HS Troponin I (test code = HS Troponin 15 I) [facility] [id number] 12:50:00 Test Item Value Reference Range Interpretation Comments Glucose Lvl (test code = Glucose Lvl) 99 70-99 [facility] [id number] 12:50:00 Test Item Value Reference Range Interpretation Comments BUN (test code = BUN) 38 7-22 [facility] [id number] 12:50:00 Test Item Value Reference Range Interpretation Comments Creatinine Lvl (test code = Creatinine 2.38 0.50-1.40 Lvl) [facility]2023-02-21 12:50:00 Test Item Value Reference Range Interpretation Comments Sodium Lvl (test code = Sodium Lvl) 140 135-145 [facility]2023-02-21 12:50:00 Test Item Value Reference Range Interpretation Comments Potassium Lvl (test code = Potassium 3.9 3.5-5.1 Lvl) [place] 218493-02-21 12:50:00 Test Item Value Reference Range Interpretation Comments Chloride Lvl (test code = Chloride Lvl) 107 95-109 [place] 218493-02-21 12:50:00 Test Item Value Reference Range Interpretation Comments CO2 (test code = CO2) 27 24-32 [place] 218493-02-21 12:50:00 Test Item Value Reference Range Interpretation Comments Calcium Lvl (test code = Calcium Lvl) 8.1 8.5-10.5 [place] 218493-02-21 12:50:00 Test Item Value Reference Range Interpretation Comments AGAP (test code = AGAP) 9.9 10.0-20.0 [place] 218493-02-21 12:50:00 Test Item Value Reference Range Interpretation Comments eGFR (test code = eGFR) 20 [facility]2023-02-21 12:50:00 Test Item Value Reference Range Interpretation Comments Lactic Acid Lvl (test code = Lactic 0.7 0.5-2.2 Acid Lvl) [facility]2023-02-21 12:50:00 Test Item Value Reference Range Interpretation Comments Total Protein (test code = Total 6.1 6.4-8.4 Protein) [facility]2023-02-21 12:50:00 Test Item Value Reference Range Interpretation Comments Albumin Lvl (test code = Albumin Lvl) 2.9 3.5-5.0 [place] 218493-02-21 12:50:00 Test Item Value Reference Range Interpretation Comments Globulin (test code = Globulin) 3.2 2.7-4.2 [place] 218493-02-21 12:50:00 Test Item Value Reference Range Interpretation Comments A/G Ratio (test code = A/G Ratio) 0.9 1 0.7-1.6 [facility] [id number] 12:50:00 Test Item Value Reference Range Interpretation Comments ALT (test code = ALT) 16 See_Comment [Auto mated message] The system which ge nerated this result transmit sheba reference range : <=65. The reference range was not used to interpr et this result as edy l/abnormal. [facility] [id number] 12:50:00 Test Item Value Reference Range Interpretation Comments AST (test code = AST) 15 See_Comment [Auto mated message] The system which ge nerated this result transmit sheba reference range : <=37. The reference range was not used to interpr et this result as edy l/abnormal. [facility] [employer] [id number] 12:50:00 Test Item Value Reference Range Interpretation Comments Alk Phos (test code = Alk Phos) 96 39-136 [facility] [id number] 12:50:00 Test Item Value Reference Range Interpretation Comments Bili Total (test code = Bili Total) 0.2 0.2-1.3 [facility] [id number] 12:50:00 Test Item Value Reference Range Interpretation Comments Bili Direct (test code no gt See_Comment [Aut omated message] The = Bili Direct) system which generated this result tra nsmitted reference range : <=0.3. The reference r christiano was not used to int erpret this result as edy l/abnormal. [facility] [id number] 12:50:00 Test Item Value Reference Range Interpretation Comments Bili Indirect Unable to See_Comment [Automated (test code = Bili Calculate message] T he system Indirect) which generated this result transmitted reference range : <=1.0. The reference range was not used to interpret this result as normal/abnormal . [facility] HospitalVwduacmMYLASJJRP9564-88-22 12:50:00 Test Item Value Reference Range Interpretation Comments Ethanol Lvl (test code = Ethanol Lvl) no gt [facility] Hospital[id number] 12:50:00 Test Item Value Reference Range Interpretation Comments Etoh (%) (test code = Etoh (%)) no [facility]YsvjsowXYGKVMQAZ6548-31-13 12:50:00 Test Item Value Reference Range Interpretation Comments Lactic Acid Lvl (test code = Lactic 0.7 0.5-2.2 Acid Lvl) [facility] HospitalYjxiernSSCYCBPFF9105-93-12 12:50:00 Test Item Value Reference Range Interpretation Comments Total Protein (test code = Total 6.1 6.4-8.4 Protein) [facility] CenterWepjxgxOFLERQUGH5934-38-04 12:50:00 Test Item Value Reference Range Interpretation Comments Albumin Lvl (test code = Albumin Lvl) 2.9 3.5-5.0 [place] 711743-02-21 12:50:00 Test Item Value Reference Range Interpretation Comments Globulin (test code = Globulin) 3.2 2.7-4.2 [place] 711743-02-21 12:50:00 Test Item Value Reference Range Interpretation Comments A/G Ratio (test code = A/G Ratio) 0.9 1 0.7-1.6 [place] 711743-02-21 12:50:00 Test Item Value Reference Range Interpretation Comments ALT (test code = ALT) 16 See_Comment [Auto mated message] The system which ge nerated this result transmit sheba reference range : <=65. The reference range was not used to interpr et this result as edy l/abnormal. [facility] HospitalCydlpmyYAGSWOOKR1950-14-60 12:50:00 Test Item Value Reference Range Interpretation Comments AST (test code = AST) 15 See_Comment [Auto mated message] The system which ge nerated this result transmit sheba reference range : <=37. The reference range was not used to interpr et this result as edy l/abnormal. [facility] HospitalNgvxellQDAWBDWMB6664-43-86 12:50:00 Test Item Value Reference Range Interpretation Comments Alk Phos (test code = Alk Phos) 96 39-136 [facility] HospitalKutyykeYTNLTIWNI2403-82-17 12:50:00 Test Item Value Reference Range Interpretation Comments Bili Total (test code = Bili Total) 0.2 0.2-1.3 [place] [address]-02-21 12:50:00 Test Item Value Reference Range Interpretation Comments Bili Direct (test code no gt See_Comment [Aut omated message] The = Bili Direct) system which generated this result tra nsmitted reference range : <=0.3. The reference r christiano was not used to int erpret this result as edy l/abnormal. [facility] CenterWyfepzaTMOAPGYZN5325-89-88 12:50:00 Test Item Value Reference Range Interpretation Comments Bili Indirect Unable to See_Comment [Automated (test code = Bili Calculate message] T he system Indirect) which generated this result transmitted reference range : <=1.0. The reference range was not used to interpret this result as normal/abnormal . [facility] CenterLmccmjdFPDEGPUZW3023-85-17 12:50:00 Test Item Value Reference Range Interpretation Comments HS Troponin I (test code = HS Troponin 15 I) [facility] [id number] 12:50:00 Test Item Value Reference Range Interpretation Comments pH Justin (test code = pH Justin) 7.35 1 7.28-7.42 [place] 711743-02-21 12:50:00 Test Item Value Reference Range Interpretation Comments pCO2 Justin (test code = pCO2 Justin) 55 38-52 [place] 711743-02-21 12:50:00 Test Item Value Reference Range Interpretation Comments pO2 Justin (test code = pO2 Justin) 43 20-49 [place] [address]-02-21 12:50:00 Test Item Value Reference Range Interpretation Comments HCO3 Justin (test code = HCO3 Justin) 30 22-26 [place] 711743-02-21 12:50:00 Test Item Value Reference Range Interpretation Comments BE Justin (test code = BE Justin) 3 -2-2 [facility]FXJYFMLCL[facility]999[facility]55[facility]81 12:50:00 Test Item Value Reference Range Interpretation Comments O2 Sat Justin (calc) (test code = O2 Sat 75.9 40.0-70.0 Justin (calc)) [facility]WnlcgfgFEMXRTGOC9481-06-46 12:50:00 Test Item Value Reference Range Interpretation Comments Temp Justin (test code = Temp Justin) 37.0 [place] 638193-02-21 12:50:00 Test Item Value Reference Range Interpretation Comments ACT (TEG) Rapid (test code = ACT (TEG) 113 s 86-118 Rapid) [facility]HahlhrdBUTLSAAPHQ5085-33-77 12:50:00 Test Item Value Reference Range Interpretation Comments Split Point Rapid (test code = Split 0.6 min Point Rapid) [place] 638193-02-21 12:50:00 Test Item Value Reference Range Interpretation Comments R-time Rapid (test code = R-time 0.7 min 0.4-0.7 Rapid) [place] 638193-02-21 12:50:00 Test Item Value Reference Range Interpretation Comments K-time Rapid (test code = K-time 1.1 min 0.6-2.3 Rapid) [place] [address]-02-21 12:50:00 Test Item Value Reference Range Interpretation Comments Angle Rapid (test code = Angle 78 degrees 64-80 Rapid) [place] [address]-02-21 12:50:00 Test Item Value Reference Range Interpretation Comments Max Amplitude Rapid (test code = Max 65 mm 52-71 Amplitude Rapid) [place] [address]-02-21 12:50:00 Test Item Value Reference Range Interpretation Comments G-value Rapid (test code = G-value 9.2 5.0-11.6 Rapid) [place] [address]-02-21 12:50:00 Test Item Value Reference Range Interpretation Comments Estimated % Lysis Rapid 0.0 See_Comment [Au tomated message] The (test code = Estimated syste m which generated % Lysis Rapid) this result t ransmitted reference range : <=7.5. The reference r christiano was not used to int erpret this result as normal/abnormal . [facility] HospitalEubrdipUBNZEPJAME9073-90-40 12:50:00 Test Item Value Reference Range Interpretation Comments Plt Morph (test code = See Note 1(11/21/22 Plt Morph) 6:50 AM) [place] [address]-02-21 12:50:00 Test Item Value Reference Range Interpretation Comments Stomatocyte (test code = Stomatocyte) slight [place] [address]-02-21 12:50:00 Test Item Value Reference Range Interpretation Comments WBC X 10x3 (test code = WBC X 10x3) 8.7 3.7-10.4 [place] [address]-02-21 12:50:00 Test Item Value Reference Range Interpretation Comments RBC X 10x6 (test code = RBC X 10x6) 3.56 4.20-5.40 [place] [address]-02-21 12:50:00 Test Item Value Reference Range Interpretation Comments Hgb (test code = Hgb) 10.4 12.0-16.0 [place] [address]-02-21 12:50:00 Test Item Value Reference Range Interpretation Comments Hct (test code = Hct) 32.3 36.0-48.0 [place] 638193-02-21 12:50:00 Test Item Value Reference Range Interpretation Comments MCV (test code = MCV) 90.8 80.0-98.0 [place] [address]-02-21 12:50:00 Test Item Value Reference Range Interpretation Comments MCH (test code = MCH) 29.3 pg 27.0-31.0 [place] [address]-02-21 12:50:00 Test Item Value Reference Range Interpretation Comments MCHC (test code = MCHC) 32.2 32.0-36.0 [facility] HospitalTcfvqmaSAWMOSXIHM6948-88-98 12:50:00 Test Item Value Reference Range Interpretation Comments RDW (test code = RDW) 13.7 11.5-14.5 [place] 638193-02-21 12:50:00 Test Item Value Reference Range Interpretation Comments Platelet (test code = Platelet) 137 133-450 [place] 638193-02-21 12:50:00 Test Item Value Reference Range Interpretation Comments MPV (test code = MPV) 7.9 7.4-10.4 [facility] HospitalLmcbxqoJMTNTERDFR8097-76-38 12:50:00 Test Item Value Reference Range Interpretation Comments ACT (TEG) Rapid (test code = ACT (TEG) 113 s 86-118 Rapid) [place] 638193-02-21 12:50:00 Test Item Value Reference Range Interpretation Comments Split Point Rapid (test code = Split 0.6 min Point Rapid) [place] [address]-02-21 12:50:00 Test Item Value Reference Range Interpretation Comments R-time Rapid (test code = R-time 0.7 min 0.4-0.7 Rapid) [place] [address]-02-21 12:50:00 Test Item Value Reference Range Interpretation Comments K-time Rapid (test code = K-time 1.1 min 0.6-2.3 Rapid) [place] [address]-02-21 12:50:00 Test Item Value Reference Range Interpretation Comments Angle Rapid (test code = Angle 78 degrees 64-80 Rapid) [place] 638193-02-21 12:50:00 Test Item Value Reference Range Interpretation Comments Max Amplitude Rapid (test code = Max 65 mm 52-71 Amplitude Rapid) [place] 638193-02-21 12:50:00 Test Item Value Reference Range Interpretation Comments G-value Rapid (test code = G-value 9.2 5.0-11.6 Rapid) [place] 638193-02-21 12:50:00 Test Item Value Reference Range Interpretation Comments Estimated % Lysis Rapid 0.0 See_Comment [Au tomated message] The (test code = Estimated syste m which generated % Lysis Rapid) this result t ransmitted reference range : <=7.5. The reference r christiano was not used to int erpret this result as normal/abnormal . [place] 638193-02-21 12:50:00 Test Item Value Reference Range Interpretation Comments Plt Morph (test code = See Note 1(11/21/22 Plt Morph) 6:50 AM) [place] 638193-02-21 12:50:00 Test Item Value Reference Range Interpretation Comments Segs (test code = Segs) 64.1 45.0-75.0 [place] 638193-02-21 12:50:00 Test Item Value Reference Range Interpretation Comments Lymphocytes (test code = Lymphocytes) 22.0 20.0-40.0 [place] 638193-02-21 12:50:00 Test Item Value Reference Range Interpretation Comments Monocytes (test code = Monocytes) 8.3 2.0-12.0 [place] 638193-02-21 12:50:00 Test Item Value Reference Range Interpretation Comments Eosinophils (test code = 4.7 See_Comment [A utomated message] The Eosinophils) system which ge nerated this result tra nsmitted reference range : <=4.0. The reference r christiano was not used to int erpret this result as normal/abnormal . [place] 638193-02-21 12:50:00 Test Item Value Reference Range Interpretation Comments Basophils (test code = 0.9 See_Comment [Aut omated message] The Basophils) system which ge nerated this result tra nsmitted reference range : <=1.0. The reference r christiano was not used to int erpret this result as normal/abnormal . [place] 638193-02-21 12:50:00 Test Item Value Reference Range Interpretation Comments Neutrophils # (test code = Neutrophils 5.6 1.5-8.1 #) [facility] HospitalOnlpmnvRSEKXLDUJF4992-21-30 12:50:00 Test Item Value Reference Range Interpretation Comments Lymphocytes # (test code = Lymphocytes 1.9 1.0-5.5 #) [facility] HospitalIqqexuiBQUCIOGHMB9959-13-68 12:50:00 Test Item Value Reference Range Interpretation Comments Monocytes # (test code 0.7 See_Comment [Aut omated message] The = Monocytes #) system which generated this result tra nsmitted reference range : <=0.8. The reference r christiano was not used to int erpret this result as normal/abnormal . [facility] HospitalHtufsltXCGFTRMKDJ3051-27-06 12:50:00 Test Item Value Reference Range Interpretation Comments Eosinophils # (test code 0.4 See_Comment [A utomated message] The = Eosinophils #) system whic h generated this result tra nsmitted reference range : <=0.5. The reference r christiano was not used to int erpret this result as normal/abnormal . [facility] HospitalBqvjlqfWNKBXKLITW0159-99-06 12:50:00 Test Item Value Reference Range Interpretation Comments Basophils # (test code 0.1 See_Comment [Aut omated message] The = Basophils #) system which generated this result tra nsmitted reference range : <=0.2. The reference r christiano was not used to int erpret this result as normal/abnormal . [facility] HospitalSpbivayXBKNDQHYJB8012-93-68 12:50:00 Test Item Value Reference Range Interpretation Comments Stomatocyte (test code = Stomatocyte) slight [facility]UlyjqicVRQUGYIWUI7775-38-22 12:50:00 Test Item Value Reference Range Interpretation Comments Ethanol Lvl (test code = Ethanol Lvl) no gt [facility] HospitalFyvflmqRAPQQKYYGE0203-13-87 12:50:00 Test Item Value Reference Range Interpretation Comments Etoh (%) (test code = Etoh (%)) no gt [place] 61477023-02-21 12:25:01 Test Item Value Reference Range Interpretation [...] arthroplasty and resurfacing of the patella.UT SECTION: [place] 22954023-02-21 12:25:01 Test Item Value Reference Range Interpretation [...] arthroplasty and resurfacing of the patella.UT SECTION: [place] 22954023-02-21 12:25:01 Test Item Value Reference Range Interpretation [...] arthroplasty and resurfacing of the patella.UT SECTION: [place] 22954023-02-21 12:25:01 Test Item Value Reference Range Interpretation [...] [facility] Test Item Value Reference Range Interpretation [...] arthroplasty and resur[facility] of the patella.[facility] 12:25:01 Test Item Value Reference Range Interpretation [...] arthroplasty and resurfacing of the patella.[facility] 12:25:01 Test Item Value Reference Range Interpretation [...] arthroplasty and resurfacing of the patella.[facility] 12:25:01 Test Item Value Reference Range Interpretation [...] arthroplasty and resurfacing of the patella.[facility] 12:25:01 Test Item Value Reference Range Interpretation [...] arthroplasty and resurfacing of the patella.[facility] 11:23:44 Test Item Value Reference Range Interpretation [...] along the tentorium. No significant midline shift. [place] 124733-02-21 11:23:44 Test Item Value Reference Range Interpretation [...] along the tentorium. No significant midline shift. [place] 61477023-02-21 11:23:44 Test Item Value Reference Range Interpretation [...] along the tentorium. No significant midline shift. [facility]NN5408[facility] 11:23:44 Test Item Value Reference Range Interpretation [...] along the tentorium. No significant midline shift. [facility] HospitalPqraqswVFEORF0838-16-25 11:23:44 Test Item Value Reference Range Interpretation [...] along the tentorium. No significant midline shift. [place] 61477023-02-21 11:23:44 Test Item Value Reference Range Interpretation [...] along the tentorium. No significant midline shift. [place] 61477023-02-21 11:23:44 Test Item Value Reference Range Interpretation [...] along the tentorium. No significant midline shift. [facility] HospitalDqgeillSNIHUG2113-56-55 11:23:44 Test Item Value Reference Range Interpretation [...] along the tentorium. No significant midline shift. [facility] HospitalQmftwacPVFBTE5671-85-68 11:23:44 Test Item Value Reference Range Interpretation [...] along the tentorium. No significant midline shift. [facility]TV[facility] FUNCS0544-84-11 10:24:00 Test Item Value Reference Range Interpretation Comments Glucose Lvl (test code = Glucose Lvl) 66 70-99 [facility] SNYFT8195-99-37 10:24:00 Test Item Value Reference Range Interpretation Comments BUN (test code = BUN) 19 7-22 [facility] DGMSD1829-55-02 10:24:00 Test Item Value Reference Range Interpretation Comments Creatinine Lvl (test code = Creatinine 1.82 0.50-1.40 Lvl) [facility]2020-12-07 10:24:00 Test Item Value Reference Range Interpretation Comments Sodium Lvl (test code = Sodium Lvl) 139 135-145 [place] 218490-12-07 10:24:00 Test Item Value Reference Range Interpretation Comments Potassium Lvl (test code = Potassium 4.2 3.5-5.1 Lvl) [facility]2020-12-07 10:24:00 Test Item Value Reference Range Interpretation Comments Chloride Lvl (test code = Chloride Lvl) 105 95-109 [facility]2020-12-07 10:24:00 Test Item Value Reference Range Interpretation Comments CO2 (test code = CO2) 28 24-32 [facility]2020-12-07 10:24:00 Test Item Value Reference Range Interpretation Comments Calcium Lvl (test code = Calcium Lvl) 8.2 8.5-10.5 [facility]2020-12-07 10:24:00 Test Item Value Reference Range Interpretation Comments AGAP (test code = AGAP) 10.2 10.0-20.0 [facility]2020-12-07 10:24:00 Test Item Value Reference Range Interpretation Comments Glucose Lvl (test code = Glucose Lvl) 66 70-99 [facility]2020-12-07 10:24:00 Test Item Value Reference Range Interpretation Comments BUN (test code = BUN) 19 7-22 [facility]2020-12-07 10:24:00 Test Item Value Reference Range Interpretation Comments Creatinine Lvl (test code = Creatinine 1.82 0.50-1.40 Lvl) [facility]2020-12-07 10:24:00 Test Item Value Reference Range Interpretation Comments Sodium Lvl (test code = Sodium Lvl) 139 135-145 [place] 218490-12-07 10:24:00 Test Item Value Reference Range Interpretation Comments Potassium Lvl (test code = Potassium 4.2 3.5-5.1 Lvl) [facility]2020-12-07 10:24:00 Test Item Value Reference Range Interpretation Comments eGFR (test code = eGFR) 26 [facility]2020-12-07 10:24:00 Test Item Value Reference Range Interpretation Comments Chloride Lvl (test code = Chloride Lvl) 105 95-109 [facility]2020-12-07 10:24:00 Test Item Value Reference Range Interpretation Comments CO2 (test code = CO2) 28 24-32 [facility]2020-12-07 10:24:00 Test Item Value Reference Range Interpretation Comments Calcium Lvl (test code = Calcium Lvl) 8.2 8.5-10.5 [facility]2020-12-07 10:24:00 Test Item Value Reference Range Interpretation Comments AGAP (test code = AGAP) 10.2 10.0-20.0 [facility]2020-12-07 10:24:00 Test Item Value Reference Range Interpretation Comments eGFR (test code = eGFR) 26 [facility] HospitalOqusnosFUQCBRFIEW4834-39-63 10:24:00 Test Item Value Reference Range Interpretation Comments Segs (test code = Segs) 70.6 45.0-75.0 [facility] HospitalAxlmgoqRQPEJJEOPH9905-46-01 10:24:00 Test Item Value Reference Range Interpretation Comments Lymphocytes (test code = Lymphocytes) 13.2 20.0-40.0 [facility] HospitalVaxzdioZZHHPLTJJR4636-57-17 10:24:00 Test Item Value Reference Range Interpretation Comments Monocytes (test code = Monocytes) 10.9 2.0-12.0 [facility] HospitalWpcrufiCOVFXQMJWU0562-23-15 10:24:00 Test Item Value Reference Range Interpretation Comments Eosinophils (test code = 4.6 See_Comment [A utomated message] The Eosinophils) system which ge nerated this result tra nsmitted reference range : <=4.0. The reference r christiano was not used to int erpret this result as normal/abnormal . [facility] HospitalEgvhdvjICGLGFHDVV4083-32-29 10:24:00 Test Item Value Reference Range Interpretation Comments Basophils (test code = 0.7 See_Comment [Aut omated message] The Basophils) system which ge nerated this result tra nsmitted reference range : <=1.0. The reference r christiano was not used to int erpret this result as normal/abnormal . [facility] HospitalQqlubntJKYVYNJRAX0365-51-39 10:24:00 Test Item Value Reference Range Interpretation Comments Segs (test code = Segs) 70.6 45.0-75.0 [place] 638190-12-07 10:24:00 Test Item Value Reference Range Interpretation Comments Neutrophils # (test code = Neutrophils 5.3 1.5-8.1 #) [facility] HospitalKxoopnsGMAPYXLWFX2593-49-82 10:24:00 Test Item Value Reference Range Interpretation Comments Lymphocytes # (test code = Lymphocytes 1.0 1.0-5.5 #) [facility] HospitalVgozvwuPRWBQVGJFL2688-73-19 10:24:00 Test Item Value Reference Range Interpretation Comments Monocytes # (test code 0.8 See_Comment [Aut omated message] The = Monocytes #) system which generated this result tra nsmitted reference range : <=0.8. The reference r christiano was not used to int erpret this result as normal/abnormal . [facility] HospitalYyuqwwrZNNNFYXGIB9541-69-46 10:24:00 Test Item Value Reference Range Interpretation Comments Eosinophils # (test code 0.3 See_Comment [A utomated message] The = Eosinophils #) system whic h generated this result tra nsmitted reference range : <=0.5. The reference r christiano was not used to int erpret this result as normal/abnormal . [facility] HospitalWmhbsynIEQMSOVFFL9413-96-97 10:24:00 Test Item Value Reference Range Interpretation Comments Basophils # (test code 0.1 See_Comment [Aut omated message] The = Basophils #) system which generated this result tra nsmitted reference range : <=0.2. The reference r christiano was not used to int erpret this result as normal/abnormal . [facility] HospitalMfxdqjfZELBGDCXCC7218-83-70 10:24:00 Test Item Value Reference Range Interpretation Comments WBC (test code = WBC) 7.5 3.7-10.4 [facility] HospitalMygxtfjSYCDHWHKDC3098-52-81 10:24:00 Test Item Value Reference Range Interpretation Comments RBC (test code = RBC) 3.85 4.20-5.40 [place] 638190-12-07 10:24:00 Test Item Value Reference Range Interpretation Comments Hgb (test code = Hgb) 10.6 12.0-16.0 [place] [address]-12-07 10:24:00 Test Item Value Reference Range Interpretation Comments Hct (test code = Hct) 32.1 36.0-48.0 [facility] HospitalEglwekyCJKBAGLEAX6937-62-51 10:24:00 Test Item Value Reference Range Interpretation Comments MCV (test code = MCV) 83.5 80.0-98.0 [facility] HospitalCttbvwpWRWBVAALFW9779-51-86 10:24:00 Test Item Value Reference Range Interpretation Comments Lymphocytes (test code = Lymphocytes) 13.2 20.0-40.0 [facility] HospitalRqvklwoSDXKKRLATE6501-72-34 10:24:00 Test Item Value Reference Range Interpretation Comments MCH (test code = MCH) 27.7 pg 27.0-31.0 [facility] HospitalRnahxazWYQNFWISRG4800-34-58 10:24:00 Test Item Value Reference Range Interpretation Comments MCHC (test code = MCHC) 33.1 32.0-36.0 [facility] HospitalIgtoiavCAKDBVMREN1094-70-53 10:24:00 Test Item Value Reference Range Interpretation Comments RDW (test code = RDW) 16.8 11.5-14.5 [facility] HospitalGtislvqRWKBBRRZBC5976-10-70 10:24:00 Test Item Value Reference Range Interpretation Comments Platelet (test code = Platelet) 185 133-450 [facility] HospitalAemsqvkMCIKAGROIZ0452-47-86 10:24:00 Test Item Value Reference Range Interpretation Comments MPV (test code = MPV) 8.4 7.4-10.4 [facility] HospitalTrgebqjFWYCTONERL7682-36-51 10:24:00 Test Item Value Reference Range Interpretation Comments Monocytes (test code = Monocytes) 10.9 2.0-12.0 [facility] HospitalUrwavyhOCTUQVPHFA3754-25-77 10:24:00 Test Item Value Reference Range Interpretation Comments Eosinophils (test code = 4.6 See_Comment [A utomated message] The Eosinophils) system which ge nerated this result tra nsmitted reference range : <=4.0. The reference r christiano was not used to int erpret this result as normal/abnormal . [facility] HospitalQukgzufYFOIAHOFRI2644-49-53 10:24:00 Test Item Value Reference Range Interpretation Comments Basophils (test code = 0.7 See_Comment [Aut omated message] The Basophils) system which ge nerated this result tra nsmitted reference range : <=1.0. The reference r christiano was not used to int erpret this result as normal/abnormal . [facility] HospitalGoxichvNRQNIVMOMJ3545-43-13 10:24:00 Test Item Value Reference Range Interpretation Comments Neutrophils # (test code = Neutrophils 5.3 1.5-8.1 #) [facility] HospitalBxvwjbuBZZNHZLXOA3864-32-47 10:24:00 Test Item Value Reference Range Interpretation Comments Lymphocytes # (test code = Lymphocytes 1.0 1.0-5.5 #) [facility] HospitalUuffmorYIVTPBYLNM7181-45-94 10:24:00 Test Item Value Reference Range Interpretation Comments Monocytes # (test code 0.8 See_Comment [Aut omated message] The = Monocytes #) system which generated this result tra nsmitted reference range : <=0.8. The reference r christiano was not used to int erpret this result as normal/abnormal . [facility] HospitalUfelbbwTJEHWPEIVS9876-72-60 10:24:00 Test Item Value Reference Range Interpretation Comments Eosinophils # (test code 0.3 See_Comment [A utomated message] The = Eosinophils #) system whic h generated this result tra nsmitted reference range : <=0.5. The reference r christiano was not used to int erpret this result as normal/abnormal . [facility] HospitalJcfcvfrXDYUPRUYAX6923-98-99 10:24:00 Test Item Value Reference Range Interpretation Comments Basophils # (test code 0.1 See_Comment [Aut omated message] The = Basophils #) system which generated this result tra nsmitted reference range : <=0.2. The reference r christiano was not used to int erpret this result as normal/abnormal . [facility] HospitalMxaggimFDWZPRQIGA1028-08-54 10:24:00 Test Item Value Reference Range Interpretation Comments WBC (test code = WBC) 7.5 3.7-10.4 [facility] HospitalQvzhplwGDHANNZCAS0180-04-44 10:24:00 Test Item Value Reference Range Interpretation Comments RBC (test code = RBC) 3.85 4.20-5.40 [facility] HospitalPiiqhndCCKVFDCANU9977-64-37 10:24:00 Test Item Value Reference Range Interpretation Comments Hgb (test code = Hgb) 10.6 12.0-16.0 [facility] HospitalMnopcqdPLZKNNQPBT5811-71-61 10:24:00 Test Item Value Reference Range Interpretation Comments Hct (test code = Hct) 32.1 36.0-48.0 [facility] HospitalIibzyuiDGCMMNPKFU6070-53-91 10:24:00 Test Item Value Reference Range Interpretation Comments MCV (test code = MCV) 83.5 80.0-98.0 [place] 638190-12-07 10:24:00 Test Item Value Reference Range Interpretation Comments MCH (test code = MCH) 27.7 pg 27.0-31.0 [place] 638190-12-07 10:24:00 Test Item Value Reference Range Interpretation Comments MCHC (test code = MCHC) 33.1 32.0-36.0 [place] [address]-12-07 10:24:00 Test Item Value Reference Range Interpretation Comments RDW (test code = RDW) 16.8 11.5-14.5 [place] [address]-12-07 10:24:00 Test Item Value Reference Range Interpretation Comments Platelet (test code = Platelet) 185 133-450 [facility] HospitalCiiqiyvXEJRMSDDMH0690-35-27 10:24:00 Test Item Value Reference Range Interpretation Comments MPV (test code = MPV) 8.4 7.4-10.4 [facility]2020-12-07 10:24:00 Test Item Value Reference Range Interpretation Comments Glucose Lvl (test code = Glucose Lvl) 66 70-99 [facility]2020-12-07 10:24:00 Test Item Value Reference Range Interpretation Comments BUN (test code = BUN) 19 7-22 [facility]2020-12-07 10:24:00 Test Item Value Reference Range Interpretation Comments Creatinine Lvl (test code = Creatinine 1.82 0.50-1.40 Lvl) [facility]2020-12-07 10:24:00 Test Item Value Reference Range Interpretation Comments Sodium Lvl (test code = Sodium Lvl) 139 135-145 [facility]2020-12-07 10:24:00 Test Item Value Reference Range Interpretation Comments Potassium Lvl (test code = Potassium 4.2 3.5-5.1 Lvl) [place] 218490-12-07 10:24:00 Test Item Value Reference Range Interpretation Comments Chloride Lvl (test code = Chloride Lvl) 105 95-109 [place] 218490-12-07 10:24:00 Test Item Value Reference Range Interpretation Comments CO2 (test code = CO2) 28 24-32 [place] 218490-12-07 10:24:00 Test Item Value Reference Range Interpretation Comments Calcium Lvl (test code = Calcium Lvl) 8.2 8.5-10.5 [facility]2020-12-07 10:24:00 Test Item Value Reference Range Interpretation Comments AGAP (test code = AGAP) 10.2 10.0-20.0 [facility]2020-12-07 10:24:00 Test Item Value Reference Range Interpretation Comments eGFR (test code = eGFR) 26 [facility] HospitalQfggcpgACYYKACDII4498-38-01 10:24:00 Test Item Value Reference Range Interpretation Comments Segs (test code = Segs) 70.6 45.0-75.0 [place] 638190-12-07 10:24:00 Test Item Value Reference Range Interpretation Comments Lymphocytes (test code = Lymphocytes) 13.2 20.0-40.0 [place] [address]-12-07 10:24:00 Test Item Value Reference Range Interpretation Comments Monocytes (test code = Monocytes) 10.9 2.0-12.0 [place] 638190-12-07 10:24:00 Test Item Value Reference Range Interpretation Comments Eosinophils (test code = 4.6 See_Comment [A utomated message] The Eosinophils) system which ge nerated this result tra nsmitted reference range : <=4.0. The reference r christiano was not used to int erpret this result as normal/abnormal . [facility]ggznjjHIFGJWOBQF7658-08-69 10:24:00 Test Item Value Reference Range Interpretation Comments Basophils (test code = 0.7 See_Comment [Aut omated message] The Basophils) system which ge nerated this result tra nsmitted reference range : <=1.0. The reference r christiano was not used to int erpret this result as normal/abnormal . [facility]JyjeyjfQLDOYJRJOM9433-47-56 10:24:00 Test Item Value Reference Range Interpretation Comments Neutrophils # (test code = Neutrophils 5.3 1.5-8.1 #) [place] 638190-12-07 10:24:00 Test Item Value Reference Range Interpretation Comments Lymphocytes # (test code = Lymphocytes 1.0 1.0-5.5 #) [place] 638190-12-07 10:24:00 Test Item Value Reference Range Interpretation Comments Monocytes # (test code 0.8 See_Comment [Aut omated message] The = Monocytes #) system which generated this result tra nsmitted reference range : <=0.8. The reference r christiano was not used to int erpret this result as normal/abnormal . [facility] HospitalLgnjeoyUPPJGLTJXV2389-82-57 10:24:00 Test Item Value Reference Range Interpretation Comments Eosinophils # (test code 0.3 See_Comment [A utomated message] The = Eosinophils #) system whic h generated this result tra nsmitted reference range : <=0.5. The reference r christiano was not used to int erpret this result as normal/abnormal . [facility] HospitalKtsmltqTEIPAGOPEW3908-68-06 10:24:00 Test Item Value Reference Range Interpretation Comments Basophils # (test code 0.1 See_Comment [Aut omated message] The = Basophils #) system which generated this result tra nsmitted reference range : <=0.2. The reference r christiano was not used to int erpret this result as normal/abnormal . [facility] HospitalMpwbdmqRAMCLTPBIR4814-04-07 10:24:00 Test Item Value Reference Range Interpretation Comments WBC (test code = WBC) 7.5 3.7-10.4 [facility] HospitalRzgpjnhNWLFAZGNSS3281-09-58 10:24:00 Test Item Value Reference Range Interpretation Comments RBC (test code = RBC) 3.85 4.20-5.40 [facility] HospitalWscpxtsCZSDODQHMY2654-53-04 10:24:00 Test Item Value Reference Range Interpretation Comments Hgb (test code = Hgb) 10.6 12.0-16.0 [facility] HospitalZmygqydJUCKTTCBLG2446-53-63 10:24:00 Test Item Value Reference Range Interpretation Comments Hct (test code = Hct) 32.1 36.0-48.0 [facility] HospitalJbugpffNKLOOVRANI0601-84-47 10:24:00 Test Item Value Reference Range Interpretation Comments MCV (test code = MCV) 83.5 80.0-98.0 [facility] HospitalPkupjpwNPIIOABUDC0382-16-45 10:24:00 Test Item Value Reference Range Interpretation Comments MCH (test code = MCH) 27.7 pg 27.0-31.0 [place] 638190-12-07 10:24:00 Test Item Value Reference Range Interpretation Comments MCHC (test code = MCHC) 33.1 32.0-36.0 [facility] HospitalYmcturgUPWZWBQLGU2710-81-00 10:24:00 Test Item Value Reference Range Interpretation Comments RDW (test code = RDW) 16.8 11.5-14.5 [place] 638190-12-07 10:24:00 Test Item Value Reference Range Interpretation Comments Platelet (test code = Platelet) 185 133-450 [facility] HospitalNktslpkBSKEHQUIUY2048-23-90 10:24:00 Test Item Value Reference Range Interpretation Comments MPV (test code = MPV) 8.4 7.4-10.4 [facility]2020-12-07 10:24:00 Test Item Value Reference Range Interpretation Comments Glucose Lvl (test code = Glucose Lvl) 66 70-99 [facility]2020-12-07 10:24:00 Test Item Value Reference Range Interpretation Comments BUN (test code = BUN) 19 7-22 [facility]2020-12-07 10:24:00 Test Item Value Reference Range Interpretation Comments Creatinine Lvl (test code = Creatinine 1.82 0.50-1.40 Lvl) [facility]2020-12-07 10:24:00 Test Item Value Reference Range Interpretation Comments Sodium Lvl (test code = Sodium Lvl) 139 135-145 [facility]2020-12-07 10:24:00 Test Item Value Reference Range Interpretation Comments Potassium Lvl (test code = Potassium 4.2 3.5-5.1 Lvl) [facility]2020-12-07 10:24:00 Test Item Value Reference Range Interpretation Comments Chloride Lvl (test code = Chloride Lvl) 105 95-109 [facility]2020-12-07 10:24:00 Test Item Value Reference Range Interpretation Comments CO2 (test code = CO2) 28 24-32 [place] 218490-12-07 10:24:00 Test Item Value Reference Range Interpretation Comments Calcium Lvl (test code = Calcium Lvl) 8.2 8.5-10.5 [place] 218490-12-07 10:24:00 Test Item Value Reference Range Interpretation Comments AGAP (test code = AGAP) 10.2 10.0-20.0 [place] 218490-12-07 10:24:00 Test Item Value Reference Range Interpretation Comments eGFR (test code = eGFR) 26 [place] 638190-12-07 10:24:00 Test Item Value Reference Range Interpretation Comments Segs (test code = Segs) 70.6 45.0-75.0 [facility] HospitalCvnpndcVGBZZGCGBT6787-77-75 10:24:00 Test Item Value Reference Range Interpretation Comments Lymphocytes (test code = Lymphocytes) 13.2 20.0-40.0 [facility] HospitalVopepvfOFVVYBKFJE6871-71-25 10:24:00 Test Item Value Reference Range Interpretation Comments Monocytes (test code = Monocytes) 10.9 2.0-12.0 [place] 638190-12-07 10:24:00 Test Item Value Reference Range Interpretation Comments Eosinophils (test code = 4.6 See_Comment [A utomated message] The Eosinophils) system which ge nerated this result tra nsmitted reference range : <=4.0. The reference r christiano was not used to int erpret this result as normal/abnormal . [facility] HospitalDalafipUBSXBLSMFF6156-60-62 10:24:00 Test Item Value Reference Range Interpretation Comments Basophils (test code = 0.7 See_Comment [Aut omated message] The Basophils) system which ge nerated this result tra nsmitted reference range : <=1.0. The reference r christiano was not used to int erpret this result as normal/abnormal . [facility] HospitalOfpoufgWCBAHMJFXT1522-88-29 10:24:00 Test Item Value Reference Range Interpretation Comments Neutrophils # (test code = Neutrophils 5.3 1.5-8.1 #) [facility] HospitalQtwvmupYUICCDTGXX7501-19-56 10:24:00 Test Item Value Reference Range Interpretation Comments Lymphocytes # (test code = Lymphocytes 1.0 1.0-5.5 #) [facility] HospitalXwspogdUGJWAMMSSD0090-46-96 10:24:00 Test Item Value Reference Range Interpretation Comments Monocytes # (test code 0.8 See_Comment [Aut omated message] The = Monocytes #) system which generated this result tra nsmitted reference range : <=0.8. The reference r christiano was not used to int erpret this result as normal/abnormal . [facility] HospitalLkqaprbKPDKYCDDFU7171-72-93 10:24:00 Test Item Value Reference Range Interpretation Comments Eosinophils # (test code 0.3 See_Comment [A utomated message] The = Eosinophils #) system whic h generated this result tra nsmitted reference range : <=0.5. The reference r christiano was not used to int erpret this result as normal/abnormal . [facility] HospitalKhtaqhuTHLLETKDDI3828-55-74 10:24:00 Test Item Value Reference Range Interpretation Comments Basophils # (test code 0.1 See_Comment [Aut omated message] The = Basophils #) system which generated this result tra nsmitted reference range : <=0.2. The reference r christiano was not used to int erpret this result as normal/abnormal . [facility] HospitalDhyhvidNUGHBRMGWG2027-70-19 10:24:00 Test Item Value Reference Range Interpretation Comments WBC (test code = WBC) 7.5 3.7-10.4 [facility] HospitalVqwkwsfUSANSNBAHB3715-65-81 10:24:00 Test Item Value Reference Range Interpretation Comments RBC (test code = RBC) 3.85 4.20-5.40 [place] 638190-12-07 10:24:00 Test Item Value Reference Range Interpretation Comments Hgb (test code = Hgb) 10.6 12.0-16.0 [facility] HospitalCqknorgJEEGWYNJAY8017-71-40 10:24:00 Test Item Value Reference Range Interpretation Comments Hct (test code = Hct) 32.1 36.0-48.0 [facility] HospitalFmoopgmMIMBBVLCJJ8628-17-55 10:24:00 Test Item Value Reference Range Interpretation Comments MCV (test code = MCV) 83.5 80.0-98.0 [facility] HospitalScppzqoYNRTPKOEXN7301-90-59 10:24:00 Test Item Value Reference Range Interpretation Comments MCH (test code = MCH) 27.7 pg 27.0-31.0 [facility] HospitalRwssuxdTRFSSBRMIS3350-90-24 10:24:00 Test Item Value Reference Range Interpretation Comments MCHC (test code = MCHC) 33.1 32.0-36.0 [facility] HospitalWiydiasKERCBBGZKW5664-05-23 10:24:00 Test Item Value Reference Range Interpretation Comments RDW (test code = RDW) 16.8 11.5-14.5 [facility] HospitalLcmksscQTDURDOFDC8540-68-00 10:24:00 Test Item Value Reference Range Interpretation Comments Platelet (test code = Platelet) 185 133-450 [facility] HospitalSideforPIDWNUJXIV1395-24-59 10:24:00 Test Item Value Reference Range Interpretation Comments MPV (test code = MPV) 8.4 7.4-10.4 [facility]2020-12-07 10:24:00 Test Item Value Reference Range Interpretation Comments Glucose Lvl (test code = Glucose Lvl) 66 70-99 [place] 218490-12-07 10:24:00 Test Item Value Reference Range Interpretation Comments BUN (test code = BUN) 19 7-22 [place] 218490-12-07 10:24:00 Test Item Value Reference Range Interpretation Comments Creatinine Lvl (test code = Creatinine 1.82 0.50-1.40 Lvl) [place] 218490-12-07 10:24:00 Test Item Value Reference Range Interpretation Comments Sodium Lvl (test code = Sodium Lvl) 139 135-145 [place] 218490-12-07 10:24:00 Test Item Value Reference Range Interpretation Comments Potassium Lvl (test code = Potassium 4.2 3.5-5.1 Lvl) [place] 218490-12-07 10:24:00 Test Item Value Reference Range Interpretation Comments Chloride Lvl (test code = Chloride Lvl) 105 95-109 [place] 218490-12-07 10:24:00 Test Item Value Reference Range Interpretation Comments CO2 (test code = CO2) 28 24-32 [facility]2020-12-07 10:24:00 Test Item Value Reference Range Interpretation Comments Calcium Lvl (test code = Calcium Lvl) 8.2 8.5-10.5 [place] 218490-12-07 10:24:00 Test Item Value Reference Range Interpretation Comments AGAP (test code = AGAP) 10.2 10.0-20.0 [place] 218490-12-07 10:24:00 Test Item Value Reference Range Interpretation Comments eGFR (test code = eGFR) 26 [facility] HospitalIqdnxwuDSKYRZAWYS1257-06-81 10:24:00 Test Item Value Reference Range Interpretation Comments Segs (test code = Segs) 70.6 45.0-75.0 [place] 638190-12-07 10:24:00 Test Item Value Reference Range Interpretation Comments Lymphocytes (test code = Lymphocytes) 13.2 20.0-40.0 [place] [address]-12-07 10:24:00 Test Item Value Reference Range Interpretation Comments Monocytes (test code = Monocytes) 10.9 2.0-12.0 [place] 638190-12-07 10:24:00 Test Item Value Reference Range Interpretation Comments Eosinophils (test code = 4.6 See_Comment [A utomated message] The Eosinophils) system which ge nerated this result tra nsmitted reference range : <=4.0. The reference r christiano was not used to int erpret this result as normal/abnormal . [facility] HospitalSsuesjsRMPXZUGZMR9752-63-26 10:24:00 Test Item Value Reference Range Interpretation Comments Basophils (test code = 0.7 See_Comment [Aut omated message] The Basophils) system which ge nerated this result tra nsmitted reference range : <=1.0. The reference r christiano was not used to int erpret this result as normal/abnormal . [facility] HospitalRpltnwcYHYHVWKQZX9165-40-65 10:24:00 Test Item Value Reference Range Interpretation Comments Neutrophils # (test code = Neutrophils 5.3 1.5-8.1 #) [place] 638190-12-07 10:24:00 Test Item Value Reference Range Interpretation Comments Lymphocytes # (test code = Lymphocytes 1.0 1.0-5.5 #) [facility] HospitalVgjooyfBPVINXWNAW7310-29-63 10:24:00 Test Item Value Reference Range Interpretation Comments Monocytes # (test code 0.8 See_Comment [Aut omated message] The = Monocytes #) system which generated this result tra nsmitted reference range : <=0.8. The reference r christiano was not used to int erpret this result as normal/abnormal . [facility] HospitalFdxsyyvFNTGMHPZRM9756-40-27 10:24:00 Test Item Value Reference Range Interpretation Comments Eosinophils # (test code 0.3 See_Comment [A utomated message] The = Eosinophils #) system whic h generated this result tra nsmitted reference range : <=0.5. The reference r christiano was not used to int erpret this result as normal/abnormal . [facility] HospitalUxkictrANZCTATRFE0767-27-99 10:24:00 Test Item Value Reference Range Interpretation Comments Basophils # (test code 0.1 See_Comment [Aut omated message] The = Basophils #) system which generated this result tra nsmitted reference range : <=0.2. The reference r christiano was not used to int erpret this result as normal/abnormal . [facility] HospitalLeguksfPGAMXNWIJJ1460-57-01 10:24:00 Test Item Value Reference Range Interpretation Comments WBC (test code = WBC) 7.5 3.7-10.4 [facility] HospitalOahzqjmTKCFPOWRKJ1856-75-22 10:24:00 Test Item Value Reference Range Interpretation Comments RBC (test code = RBC) 3.85 4.20-5.40 [facility] HospitalPlptiauYXNTZOTSMC5218-35-41 10:24:00 Test Item Value Reference Range Interpretation Comments Hgb (test code = Hgb) 10.6 12.0-16.0 [facility] HospitalIboiftuUJQDZXEPLZ7432-31-37 10:24:00 Test Item Value Reference Range Interpretation Comments Hct (test code = Hct) 32.1 36.0-48.0 [facility] HospitalKhsdcaqRMVJOLUSNS7059-56-07 10:24:00 Test Item Value Reference Range Interpretation Comments MCV (test code = MCV) 83.5 80.0-98.0 [facility] HospitalLrbemmgYVRQTHALWA8473-22-96 10:24:00 Test Item Value Reference Range Interpretation Comments MCH (test code = MCH) 27.7 pg 27.0-31.0 [facility] HospitalRrbybmjYWXMHTWVHU5486-99-63 10:24:00 Test Item Value Reference Range Interpretation Comments MCHC (test code = MCHC) 33.1 32.0-36.0 [facility] HospitalDqqoidlMNNUFTFIYV1751-81-26 10:24:00 Test Item Value Reference Range Interpretation Comments RDW (test code = RDW) 16.8 11.5-14.5 [facility] HospitalRbkwmqaFZRBBXFKIU7512-24-72 10:24:00 Test Item Value Reference Range Interpretation Comments Platelet (test code = Platelet) 185 133-450 [facility] HospitalYbmazqlHFZLTXEEXE8616-74-92 10:24:00 Test Item Value Reference Range Interpretation Comments MPV (test code = MPV) 8.4 7.4-10.4 [facility]2020-12-07 10:24:00 Test Item Value Reference Range Interpretation Comments Glucose Lvl (test code = Glucose Lvl) 66 70-99 [facility]2020-12-07 10:24:00 Test Item Value Reference Range Interpretation Comments BUN (test code = BUN) 19 7-22 [facility]2020-12-07 10:24:00 Test Item Value Reference Range Interpretation Comments Creatinine Lvl (test code = Creatinine 1.82 0.50-1.40 Lvl) [place] 218490-12-07 10:24:00 Test Item Value Reference Range Interpretation Comments Sodium Lvl (test code = Sodium Lvl) 139 135-145 [place] 218490-12-07 10:24:00 Test Item Value Reference Range Interpretation Comments Potassium Lvl (test code = Potassium 4.2 3.5-5.1 Lvl) [facility]2020-12-07 10:24:00 Test Item Value Reference Range Interpretation Comments Chloride Lvl (test code = Chloride Lvl) 105 95-109 [place] 218490-12-07 10:24:00 Test Item Value Reference Range Interpretation Comments CO2 (test code = CO2) 28 24-32 [place] [address]-12-07 10:24:00 Test Item Value Reference Range Interpretation Comments Calcium Lvl (test code = Calcium Lvl) 8.2 8.5-10.5 [facility]2020-12-07 10:24:00 Test Item Value Reference Range Interpretation Comments AGAP (test code = AGAP) 10.2 10.0-20.0 [place] 218490-12-07 10:24:00 Test Item Value Reference Range Interpretation Comments eGFR (test code = eGFR) 26 [place] 638190-12-07 10:24:00 Test Item Value Reference Range Interpretation Comments Segs (test code = Segs) 70.6 45.0-75.0 [facility] HospitalHiwmytnCCNUDYFETX9905-32-93 10:24:00 Test Item Value Reference Range Interpretation Comments Lymphocytes (test code = Lymphocytes) 13.2 20.0-40.0 [place] 638190-12-07 10:24:00 Test Item Value Reference Range Interpretation Comments Monocytes (test code = Monocytes) 10.9 2.0-12.0 [place] [address]-12-07 10:24:00 Test Item Value Reference Range Interpretation Comments Eosinophils (test code = 4.6 See_Comment [A utomated message] The Eosinophils) system which ge nerated this result tra nsmitted reference range : <=4.0. The reference r christiano was not used to int erpret this result as normal/abnormal . [facility] HospitalBzkvldeERFLMRRWMT2064-05-94 10:24:00 Test Item Value Reference Range Interpretation Comments Basophils (test code = 0.7 See_Comment [Aut omated message] The Basophils) system which ge nerated this result tra nsmitted reference range : <=1.0. The reference r christiano was not used to int erpret this result as normal/abnormal . [facility] HospitalUpjkdcdEKKWSJSQPP2256-47-02 10:24:00 Test Item Value Reference Range Interpretation Comments Neutrophils # (test code = Neutrophils 5.3 1.5-8.1 #) [facility] HospitalXphryznNLOMCZGWTG3756-42-92 10:24:00 Test Item Value Reference Range Interpretation Comments Lymphocytes # (test code = Lymphocytes 1.0 1.0-5.5 #) [facility] HospitalBnrprzcSCTWLERAPI1465-86-37 10:24:00 Test Item Value Reference Range Interpretation Comments Monocytes # (test code 0.8 See_Comment [Aut omated message] The = Monocytes #) system which generated this result tra nsmitted reference range : <=0.8. The reference r christiano was not used to int erpret this result as normal/abnormal . [facility] HospitalNxhcahcTJTGUEEZOY7157-28-83 10:24:00 Test Item Value Reference Range Interpretation Comments Eosinophils # (test code 0.3 See_Comment [A utomated message] The = Eosinophils #) system whic h generated this result tra nsmitted reference range : <=0.5. The reference r christiano was not used to int erpret this result as normal/abnormal . [facility] HospitalAuptoxsXISBCGXOJT4221-54-81 10:24:00 Test Item Value Reference Range Interpretation Comments Basophils # (test code 0.1 See_Comment [Aut omated message] The = Basophils #) system which generated this result tra nsmitted reference range : <=0.2. The reference r christiano was not used to int erpret this result as normal/abnormal . [facility] HospitalPmotxmtPNAHQAPHYU6055-81-27 10:24:00 Test Item Value Reference Range Interpretation Comments WBC (test code = WBC) 7.5 3.7-10.4 [facility] HospitalTrvefgpZSUYUFWZSX4066-67-73 10:24:00 Test Item Value Reference Range Interpretation Comments RBC (test code = RBC) 3.85 4.20-5.40 [place] 638190-12-07 10:24:00 Test Item Value Reference Range Interpretation Comments Hgb (test code = Hgb) 10.6 12.0-16.0 [place] 638190-12-07 10:24:00 Test Item Value Reference Range Interpretation Comments Hct (test code = Hct) 32.1 36.0-48.0 [facility] HospitalRmxeatdLUWZZLFGXX9665-32-60 10:24:00 Test Item Value Reference Range Interpretation Comments MCV (test code = MCV) 83.5 80.0-98.0 [facility] HospitalCrmdztePCMEVMASXV7511-47-58 10:24:00 Test Item Value Reference Range Interpretation Comments MCH (test code = MCH) 27.7 pg 27.0-31.0 [facility] HospitalBmakbkbSGRYQJBTKC0817-50-62 10:24:00 Test Item Value Reference Range Interpretation Comments MCHC (test code = MCHC) 33.1 32.0-36.0 [facility] HospitalWmphbcvKGXBTWAWGF4322-32-33 10:24:00 Test Item Value Reference Range Interpretation Comments RDW (test code = RDW) 16.8 11.5-14.5 [place] 638190-12-07 10:24:00 Test Item Value Reference Range Interpretation Comments Platelet (test code = Platelet) 185 133-450 [facility] HospitalZksuhhuJWXBPOADXS8375-64-75 10:24:00 Test Item Value Reference Range Interpretation Comments MPV (test code = MPV) 8.4 7.4-10.4 [facility]2020-12-07 10:24:00 Test Item Value Reference Range Interpretation Comments Glucose Lvl (test code = Glucose Lvl) 66 70-99 [facility]2020-12-07 10:24:00 Test Item Value Reference Range Interpretation Comments BUN (test code = BUN) 19 7-22 [facility]2020-12-07 10:24:00 Test Item Value Reference Range Interpretation Comments Creatinine Lvl (test code = Creatinine 1.82 0.50-1.40 Lvl) [facility]2020-12-07 10:24:00 Test Item Value Reference Range Interpretation Comments Sodium Lvl (test code = Sodium Lvl) 139 135-145 [facility]2020-12-07 10:24:00 Test Item Value Reference Range Interpretation Comments Potassium Lvl (test code = Potassium 4.2 3.5-5.1 Lvl) [facility]2020-12-07 10:24:00 Test Item Value Reference Range Interpretation Comments Chloride Lvl (test code = Chloride Lvl) 105 95-109 [facility]2020-12-07 10:24:00 Test Item Value Reference Range Interpretation Comments CO2 (test code = CO2) 28 24-32 [place] 218490-12-07 10:24:00 Test Item Value Reference Range Interpretation Comments Calcium Lvl (test code = Calcium Lvl) 8.2 8.5-10.5 [facility]2020-12-07 10:24:00 Test Item Value Reference Range Interpretation Comments AGAP (test code = AGAP) 10.2 10.0-20.0 [facility]2020-12-07 10:24:00 Test Item Value Reference Range Interpretation Comments eGFR (test code = eGFR) 26 [facility] HospitalVcutsqoRJXDBOTHBK9113-03-51 10:24:00 Test Item Value Reference Range Interpretation Comments Segs (test code = Segs) 70.6 45.0-75.0 [place] 638190-12-07 10:24:00 Test Item Value Reference Range Interpretation Comments Lymphocytes (test code = Lymphocytes) 13.2 20.0-40.0 [facility] HospitalEloloozYOUEJGCOZE5377-60-82 10:24:00 Test Item Value Reference Range Interpretation Comments Monocytes (test code = Monocytes) 10.9 2.0-12.0 [facility] HospitalYjvoauxEUYPJQAIDE4350-86-79 10:24:00 Test Item Value Reference Range Interpretation Comments Eosinophils (test code = 4.6 See_Comment [A utomated message] The Eosinophils) system which ge nerated this result tra nsmitted reference range : <=4.0. The reference r christiano was not used to int erpret this result as normal/abnormal . [facility] HospitalBrflitsSGPJIBRPWZ1741-50-98 10:24:00 Test Item Value Reference Range Interpretation Comments Basophils (test code = 0.7 See_Comment [Aut omated message] The Basophils) system which ge nerated this result tra nsmitted reference range : <=1.0. The reference r christiano was not used to int erpret this result as normal/abnormal . [place] 638190-12-07 10:24:00 Test Item Value Reference Range Interpretation Comments Neutrophils # (test code = Neutrophils 5.3 1.5-8.1 #) [facility] HospitalBnmjsmlPKZKWSPXEH7076-96-69 10:24:00 Test Item Value Reference Range Interpretation Comments Lymphocytes # (test code = Lymphocytes 1.0 1.0-5.5 #) [facility] HospitalVvwslmhXPIZUPNTMH2958-33-98 10:24:00 Test Item Value Reference Range Interpretation Comments Monocytes # (test code 0.8 See_Comment [Aut omated message] The = Monocytes #) system which generated this result tra nsmitted reference range : <=0.8. The reference r christiano was not used to int erpret this result as normal/abnormal . [facility] HospitalHyjdigsFXQHATXMMV4654-67-99 10:24:00 Test Item Value Reference Range Interpretation Comments Eosinophils # (test code 0.3 See_Comment [A utomated message] The = Eosinophils #) system whic h generated this result tra nsmitted reference range : <=0.5. The reference r christiano was not used to int erpret this result as normal/abnormal . [facility]PxjftfeRSGNTBDMJH1070-56-61 10:24:00 Test Item Value Reference Range Interpretation Comments Basophils # (test code 0.1 See_Comment [Aut omated message] The = Basophils #) system which generated this result tra nsmitted reference range : <=0.2. The reference r christiano was not used to int erpret this result as normal/abnormal . [facility] HospitalFgaycppGVMOYXTSXH9931-43-56 10:24:00 Test Item Value Reference Range Interpretation Comments WBC (test code = WBC) 7.5 3.7-10.4 [facility] HospitalYgekiktTFCZXMEEPR0259-55-91 10:24:00 Test Item Value Reference Range Interpretation Comments RBC (test code = RBC) 3.85 4.20-5.40 [place] 638190-12-07 10:24:00 Test Item Value Reference Range Interpretation Comments Hgb (test code = Hgb) 10.6 12.0-16.0 [place] [address]-12-07 10:24:00 Test Item Value Reference Range Interpretation Comments Hct (test code = Hct) 32.1 36.0-48.0 [facility] HospitalJaaxbveWZWLNLIOYZ3879-73-09 10:24:00 Test Item Value Reference Range Interpretation Comments MCV (test code = MCV) 83.5 80.0-98.0 [place] 638190-12-07 10:24:00 Test Item Value Reference Range Interpretation Comments MCH (test code = MCH) 27.7 pg 27.0-31.0 [facility] HospitalWdlhaxpFELXNFUUXQ5863-50-38 10:24:00 Test Item Value Reference Range Interpretation Comments MCHC (test code = MCHC) 33.1 32.0-36.0 [place] 638190-12-07 10:24:00 Test Item Value Reference Range Interpretation Comments RDW (test code = RDW) 16.8 11.5-14.5 [place] 638190-12-07 10:24:00 Test Item Value Reference Range Interpretation Comments Platelet (test code = Platelet) 185 133-450 [facility]2020-12-07 10:24:00 Test Item Value Reference Range Interpretation Comments Glucose Lvl (test code = Glucose Lvl) 66 70-99 [facility]2020-12-07 10:24:00 Test Item Value Reference Range Interpretation Comments BUN (test code = BUN) 19 7-22 [facility]2020-12-07 10:24:00 Test Item Value Reference Range Interpretation Comments Creatinine Lvl (test code = Creatinine 1.82 0.50-1.40 Lvl) [facility]2020-12-07 10:24:00 Test Item Value Reference Range Interpretation Comments Sodium Lvl (test code = Sodium Lvl) 139 135-145 [facility]2020-12-07 10:24:00 Test Item Value Reference Range Interpretation Comments Potassium Lvl (test code = Potassium 4.2 3.5-5.1 Lvl) [facility]2020-12-07 10:24:00 Test Item Value Reference Range Interpretation Comments Chloride Lvl (test code = Chloride Lvl) 105 95-109 [facility] HospitalDjcdsxcGPQBWWSBYL0650-27-90 10:24:00 Test Item Value Reference Range Interpretation Comments MPV (test code = MPV) 8.4 7.4-10.4 [facility]2020-12-07 10:24:00 Test Item Value Reference Range Interpretation Comments CO2 (test code = CO2) 28 24-32 [place] 218490-12-07 10:24:00 Test Item Value Reference Range Interpretation Comments Calcium Lvl (test code = Calcium Lvl) 8.2 8.5-10.5 [facility]2020-12-07 10:24:00 Test Item Value Reference Range Interpretation Comments AGAP (test code = AGAP) 10.2 10.0-20.0 [facility]2020-12-07 10:24:00 Test Item Value Reference Range Interpretation Comments eGFR (test code = eGFR) 26 [facility] HospitalUzaegihXMZKJGLRXA8230-19-49 10:24:00 Test Item Value Reference Range Interpretation Comments Segs (test code = Segs) 70.6 45.0-75.0 [place] 638190-12-07 10:24:00 Test Item Value Reference Range Interpretation Comments Lymphocytes (test code = Lymphocytes) 13.2 20.0-40.0 [place] 638190-12-07 10:24:00 Test Item Value Reference Range Interpretation Comments Monocytes (test code = Monocytes) 10.9 2.0-12.0 [place] 638190-12-07 10:24:00 Test Item Value Reference Range Interpretation Comments Eosinophils (test code = 4.6 See_Comment [A utomated message] The Eosinophils) system which ge nerated this result tra nsmitted reference range : <=4.0. The reference r christiano was not used to int erpret this result as normal/abnormal . [facility] HospitalVhpgbyyQQSLRQRTDI9251-60-35 10:24:00 Test Item Value Reference Range Interpretation Comments Basophils (test code = 0.7 See_Comment [Aut omated message] The Basophils) system which ge nerated this result tra nsmitted reference range : <=1.0. The reference r christiano was not used to int erpret this result as normal/abnormal . [facility] HospitalTgwhgjwAHHFMMOCUJ5161-10-47 10:24:00 Test Item Value Reference Range Interpretation Comments Neutrophils # (test code = Neutrophils 5.3 1.5-8.1 #) [place] 638190-12-07 10:24:00 Test Item Value Reference Range Interpretation Comments Lymphocytes # (test code = Lymphocytes 1.0 1.0-5.5 #) [place] 638190-12-07 10:24:00 Test Item Value Reference Range Interpretation Comments Monocytes # (test code 0.8 See_Comment [Aut omated message] The = Monocytes #) system which generated this result tra nsmitted reference range : <=0.8. The reference r christiano was not used to int erpret this result as normal/abnormal . [facility] HospitalXcnbjawMRDEKNTIDV0069-51-39 10:24:00 Test Item Value Reference Range Interpretation Comments Eosinophils # (test code 0.3 See_Comment [A utomated message] The = Eosinophils #) system whic h generated this result tra nsmitted reference range : <=0.5. The reference r christiano was not used to int erpret this result as normal/abnormal . [facility] HospitalJofhyglRLUCTJLPIP2371-76-49 10:24:00 Test Item Value Reference Range Interpretation Comments Basophils # (test code 0.1 See_Comment [Aut omated message] The = Basophils #) system which generated this result tra nsmitted reference range : <=0.2. The reference r christiano was not used to int erpret this result as normal/abnormal . [facility] HospitalPmkujxlEGXKGDBYII6826-39-30 10:24:00 Test Item Value Reference Range Interpretation Comments WBC (test code = WBC) 7.5 3.7-10.4 [facility] HospitalCeosaoiCBEEYULHKR9808-59-23 10:24:00 Test Item Value Reference Range Interpretation Comments RBC (test code = RBC) 3.85 4.20-5.40 [facility] HospitalHzpmiaiSWEWMWOPPV0589-03-29 10:24:00 Test Item Value Reference Range Interpretation Comments Hgb (test code = Hgb) 10.6 12.0-16.0 [facility] HospitalDobtmbhNQMHMNABAW3855-80-64 10:24:00 Test Item Value Reference Range Interpretation Comments Hct (test code = Hct) 32.1 36.0-48.0 [facility] HospitalCugmtbrRBJXBTOMRO1397-18-96 10:24:00 Test Item Value Reference Range Interpretation Comments MCV (test code = MCV) 83.5 80.0-98.0 [facility] HospitalApjkdbgNHSXLAMVQE0805-83-08 10:24:00 Test Item Value Reference Range Interpretation Comments MCH (test code = MCH) 27.7 pg 27.0-31.0 [facility] HospitalHkmttnuDPDJGOMTIW1295-88-65 10:24:00 Test Item Value Reference Range Interpretation Comments MCHC (test code = MCHC) 33.1 32.0-36.0 [facility] HospitalBkyqruuLBFHCWSDNL8528-76-73 10:24:00 Test Item Value Reference Range Interpretation Comments RDW (test code = RDW) 16.8 11.5-14.5 [facility] HospitalTtqoosuWNBLIHVDNW5214-66-02 10:24:00 Test Item Value Reference Range Interpretation Comments Platelet (test code = Platelet) 185 133-450 [facility] HospitalDfixeucJFZIOYXWAG5107-43-59 10:24:00 Test Item Value Reference Range Interpretation Comments MPV (test code = MPV) 8.4 7.4-10.4 [facility]2020-12-07 10:24:00 Test Item Value Reference Range Interpretation Comments Glucose Lvl (test code = Glucose Lvl) 66 70-99 [facility]2020-12-07 10:24:00 Test Item Value Reference Range Interpretation Comments BUN (test code = BUN) 19 7-22 [facility]2020-12-07 10:24:00 Test Item Value Reference Range Interpretation Comments Creatinine Lvl (test code = Creatinine 1.82 0.50-1.40 Lvl) [facility]2020-12-07 10:24:00 Test Item Value Reference Range Interpretation Comments Sodium Lvl (test code = Sodium Lvl) 139 135-145 [facility]2020-12-07 10:24:00 Test Item Value Reference Range Interpretation Comments Potassium Lvl (test code = Potassium 4.2 3.5-5.1 Lvl) [facility]2020-12-07 10:24:00 Test Item Value Reference Range Interpretation Comments Chloride Lvl (test code = Chloride Lvl) 105 95-109 [facility]2020-12-07 10:24:00 Test Item Value Reference Range Interpretation Comments CO2 (test code = CO2) 28 24-32 [facility]2020-12-07 10:24:00 Test Item Value Reference Range Interpretation Comments Calcium Lvl (test code = Calcium Lvl) 8.2 8.5-10.5 [place] 218490-12-07 10:24:00 Test Item Value Reference Range Interpretation Comments AGAP (test code = AGAP) 10.2 10.0-20.0 [facility]2020-12-07 10:24:00 Test Item Value Reference Range Interpretation Comments eGFR (test code = eGFR) 26 [facility] HospitalZbqjpnvKMYCFNBBND3455-27-21 10:24:00 Test Item Value Reference Range Interpretation Comments Segs (test code = Segs) 70.6 45.0-75.0 [facility] HospitalOugbgmqTLGAMASHEZ3625-86-64 10:24:00 Test Item Value Reference Range Interpretation Comments Lymphocytes (test code = Lymphocytes) 13.2 20.0-40.0 [facility] HospitalVmgkvwfGZTMTDADEY3223-92-60 10:24:00 Test Item Value Reference Range Interpretation Comments Monocytes (test code = Monocytes) 10.9 2.0-12.0 [facility] HospitalRqltawkQCDLZIPUEO7600-64-33 10:24:00 Test Item Value Reference Range Interpretation Comments Eosinophils (test code = 4.6 See_Comment [A utomated message] The Eosinophils) system which ge nerated this result tra nsmitted reference range : <=4.0. The reference r christiano was not used to int erpret this result as normal/abnormal . [facility] HospitalDuaigaxGPPRDFLKPI6023-66-25 10:24:00 Test Item Value Reference Range Interpretation Comments Basophils (test code = 0.7 See_Comment [Aut omated message] The Basophils) system which ge nerated this result tra nsmitted reference range : <=1.0. The reference r christiano was not used to int erpret this result as normal/abnormal . [facility] HospitalEnxexszCHOKQQHBRW3251-31-40 10:24:00 Test Item Value Reference Range Interpretation Comments Neutrophils # (test code = Neutrophils 5.3 1.5-8.1 #) [facility] HospitalSqzdftfRUTHGSLSKH9582-48-54 10:24:00 Test Item Value Reference Range Interpretation Comments Lymphocytes # (test code = Lymphocytes 1.0 1.0-5.5 #) [facility] HospitalMerypwyIQYTGEDSKP5860-38-27 10:24:00 Test Item Value Reference Range Interpretation Comments Monocytes # (test code 0.8 See_Comment [Aut omated message] The = Monocytes #) system which generated this result tra nsmitted reference range : <=0.8. The reference r christiano was not used to int erpret this result as normal/abnormal . [place] 638190-12-07 10:24:00 Test Item Value Reference Range Interpretation Comments Eosinophils # (test code 0.3 See_Comment [A utomated message] The = Eosinophils #) system whic h generated this result tra nsmitted reference range : <=0.5. The reference r christiano was not used to int erpret this result as normal/abnormal . [facility] HospitalEczrbsxNOMZIEWVKG3090-77-40 10:24:00 Test Item Value Reference Range Interpretation Comments Basophils # (test code 0.1 See_Comment [Aut omated message] The = Basophils #) system which generated this result tra nsmitted reference range : <=0.2. The reference r christiano was not used to int erpret this result as normal/abnormal . [facility] HospitalCxflmppLDKDUYJWZO9264-33-97 10:24:00 Test Item Value Reference Range Interpretation Comments WBC (test code = WBC) 7.5 3.7-10.4 [facility] HospitalDvbcwezUEWUFVXPXQ1240-72-55 10:24:00 Test Item Value Reference Range Interpretation Comments RBC (test code = RBC) 3.85 4.20-5.40 [facility] HospitalOnibebaZFGTUGVFGF3249-67-99 10:24:00 Test Item Value Reference Range Interpretation Comments Hgb (test code = Hgb) 10.6 12.0-16.0 [facility] HospitalLgqjmqpIXTVYMEGJY1784-89-17 10:24:00 Test Item Value Reference Range Interpretation Comments Hct (test code = Hct) 32.1 36.0-48.0 [facility] HospitalWkjpafmHNKIRAQCDN5340-33-88 10:24:00 Test Item Value Reference Range Interpretation Comments MCV (test code = MCV) 83.5 80.0-98.0 [facility] HospitalOmnvhpgDEPCRFBGCL3450-31-86 10:24:00 Test Item Value Reference Range Interpretation Comments MCH (test code = MCH) 27.7 pg 27.0-31.0 [facility] HospitalCzcljuuKTLUTSEJDR1821-37-48 10:24:00 Test Item Value Reference Range Interpretation Comments MCHC (test code = MCHC) 33.1 32.0-36.0 [facility] HospitalDdffomvMFFYGXSREA6637-51-47 10:24:00 Test Item Value Reference Range Interpretation Comments RDW (test code = RDW) 16.8 11.5-14.5 [facility] HospitalWmbhxelDENTNBEZVU8635-83-83 10:24:00 Test Item Value Reference Range Interpretation Comments Platelet (test code = Platelet) 185 133-450 [facility] HospitalAxetapnNDJFZFTPVF6253-22-46 10:24:00 Test Item Value Reference Range Interpretation Comments MPV (test code = MPV) 8.4 7.4-10.4 [place] 218490-12-07 10:24:00 Test Item Value Reference Range Interpretation Comments Glucose Lvl (test code = Glucose Lvl) 66 70-99 [place] 218490-12-07 10:24:00 Test Item Value Reference Range Interpretation Comments BUN (test code = BUN) 19 7-22 [place] 218490-12-07 10:24:00 Test Item Value Reference Range Interpretation Comments Creatinine Lvl (test code = Creatinine 1.82 0.50-1.40 Lvl) [place] 218490-12-07 10:24:00 Test Item Value Reference Range Interpretation Comments Sodium Lvl (test code = Sodium Lvl) 139 135-145 [place] 218490-12-07 10:24:00 Test Item Value Reference Range Interpretation Comments Potassium Lvl (test code = Potassium 4.2 3.5-5.1 Lvl) [facility]2020-12-07 10:24:00 Test Item Value Reference Range Interpretation Comments Chloride Lvl (test code = Chloride Lvl) 105 95-109 [facility]2020-12-07 10:24:00 Test Item Value Reference Range Interpretation Comments CO2 (test code = CO2) 28 24-32 [place] 218490-12-07 10:24:00 Test Item Value Reference Range Interpretation Comments Calcium Lvl (test code = Calcium Lvl) 8.2 8.5-10.5 [place] 218490-12-07 10:24:00 Test Item Value Reference Range Interpretation Comments AGAP (test code = AGAP) 10.2 10.0-20.0 [place] [address]-12-07 10:24:00 Test Item Value Reference Range Interpretation Comments eGFR (test code = eGFR) 26 [facility] HospitalKuzrnyhKKNCLVIVII1102-22-19 10:24:00 Test Item Value Reference Range Interpretation Comments Segs (test code = Segs) 70.6 45.0-75.0 [facility] HospitalQatlbjrLPXHKIDELG6032-99-92 10:24:00 Test Item Value Reference Range Interpretation Comments Lymphocytes (test code = Lymphocytes) 13.2 20.0-40.0 [place] 638190-12-07 10:24:00 Test Item Value Reference Range Interpretation Comments Monocytes (test code = Monocytes) 10.9 2.0-12.0 [facility] HospitalQkgulnaUPZIQXDKMY6817-46-87 10:24:00 Test Item Value Reference Range Interpretation Comments Eosinophils (test code = 4.6 See_Comment [A utomated message] The Eosinophils) system which ge nerated this result tra nsmitted reference range : <=4.0. The reference r christiano was not used to int erpret this result as normal/abnormal . [facility] HospitalDemriwsSXXOTDWKGX8830-17-63 10:24:00 Test Item Value Reference Range Interpretation Comments Basophils (test code = 0.7 See_Comment [Aut omated message] The Basophils) system which ge nerated this result tra nsmitted reference range : <=1.0. The reference r christiano was not used to int erpret this result as normal/abnormal . [facility] HospitalRojtcmiDVAXWCBZFC2614-17-94 10:24:00 Test Item Value Reference Range Interpretation Comments Neutrophils # (test code = Neutrophils 5.3 1.5-8.1 #) [facility] HospitalEgbabwrENBXMRRTBM1929-14-47 10:24:00 Test Item Value Reference Range Interpretation Comments Lymphocytes # (test code = Lymphocytes 1.0 1.0-5.5 #) [facility] HospitalJuuzvsvTZDGDTYNRH6951-19-65 10:24:00 Test Item Value Reference Range Interpretation Comments Monocytes # (test code 0.8 See_Comment [Aut omated message] The = Monocytes #) system which generated this result tra nsmitted reference range : <=0.8. The reference r christiano was not used to int erpret this result as normal/abnormal . [facility] HospitalCpxselqQQENCXGMCQ3465-49-77 10:24:00 Test Item Value Reference Range Interpretation Comments Eosinophils # (test code 0.3 See_Comment [A utomated message] The = Eosinophils #) system whic h generated this result tra nsmitted reference range : <=0.5. The reference r christiano was not used to int erpret this result as normal/abnormal . [facility] HospitalIqugnftDNBJZODUIA3978-51-58 10:24:00 Test Item Value Reference Range Interpretation Comments Basophils # (test code 0.1 See_Comment [Aut omated message] The = Basophils #) system which generated this result tra nsmitted reference range : <=0.2. The reference r christiano was not used to int erpret this result as normal/abnormal . [facility] HospitalHihqsvuYYJZVEYDOO8853-75-33 10:24:00 Test Item Value Reference Range Interpretation Comments WBC (test code = WBC) 7.5 3.7-10.4 [facility] HospitalOznxttvZILHHMTXVQ9798 10:24:00 Test Item Value Reference Range Interpretation Comments RBC (test code = RBC) 3.85 4.20-5.40 [facility] HospitalHmymvudPMOAGEFKLD7313-84-76 10:24:00 Test Item Value Reference Range Interpretation Comments Hgb (test code = Hgb) 10.6 12.0-16.0 [facility] HospitalKicicmrUWXFKLOKUH3465-19-46 10:24:00 Test Item Value Reference Range Interpretation Comments Hct (test code = Hct) 32.1 36.0-48.0 [facility] HospitalOjkqfrcVUYDDRQUVP3210-43-41 10:24:00 Test Item Value Reference Range Interpretation Comments MCV (test code = MCV) 83.5 80.0-98.0 [facility] HospitalHmoyvjkXAKBESNCAH4014-52-90 10:24:00 Test Item Value Reference Range Interpretation Comments MCH (test code = MCH) 27.7 pg 27.0-31.0 [facility] HospitalFujotkxKNUTGZYMFF0359-72-06 10:24:00 Test Item Value Reference Range Interpretation Comments MCHC (test code = MCHC) 33.1 32.0-36.0 [facility] HospitalWhvhauiKNRCYVGPOM9287-76-41 10:24:00 Test Item Value Reference Range Interpretation Comments RDW (test code = RDW) 16.8 11.5-14.5 [facility] HospitalFfyhdkqUVRKLGOVII4229-56-72 10:24:00 Test Item Value Reference Range Interpretation Comments Platelet (test code = Platelet) 185 133-450 [facility] HospitalWqultrlHDTIVHFVDV4304-23-69 10:24:00 Test Item Value Reference Range Interpretation Comments MPV (test code = MPV) 8.4 7.4-10.4 [facility]2020-12-07 10:24:00 Test Item Value Reference Range Interpretation Comments Glucose Lvl (test code = Glucose Lvl) 66 70-99 [facility]2020-12-07 10:24:00 Test Item Value Reference Range Interpretation Comments BUN (test code = BUN) 19 7-22 [facility]2020-12-07 10:24:00 Test Item Value Reference Range Interpretation Comments Creatinine Lvl (test code = Creatinine 1.82 0.50-1.40 Lvl) [facility]2020-12-07 10:24:00 Test Item Value Reference Range Interpretation Comments Sodium Lvl (test code = Sodium Lvl) 139 135-145 [facility]2020-12-07 10:24:00 Test Item Value Reference Range Interpretation Comments Potassium Lvl (test code = Potassium 4.2 3.5-5.1 Lvl) [facility]2020-12-07 10:24:00 Test Item Value Reference Range Interpretation Comments Chloride Lvl (test code = Chloride Lvl) 105 95-109 [facility]2020-12-07 10:24:00 Test Item Value Reference Range Interpretation Comments CO2 (test code = CO2) 28 24-32 [place] 218490-12-07 10:24:00 Test Item Value Reference Range Interpretation Comments Calcium Lvl (test code = Calcium Lvl) 8.2 8.5-10.5 [facility]2020-12-07 10:24:00 Test Item Value Reference Range Interpretation Comments AGAP (test code = AGAP) 10.2 10.0-20.0 [facility]2020-12-07 10:24:00 Test Item Value Reference Range Interpretation Comments eGFR (test code = eGFR) 26 [facility] HospitalLddpjxdCTRXQOJDNM0096-48-80 10:24:00 Test Item Value Reference Range Interpretation Comments Segs (test code = Segs) 70.6 45.0-75.0 [facility] HospitalWqvyffbTOIWQGFDGZ3176-96-39 10:24:00 Test Item Value Reference Range Interpretation Comments Lymphocytes (test code = Lymphocytes) 13.2 20.0-40.0 [place] [address]-12-07 10:24:00 Test Item Value Reference Range Interpretation Comments Monocytes (test code = Monocytes) 10.9 2.0-12.0 [place] [address]-12-07 10:24:00 Test Item Value Reference Range Interpretation Comments Eosinophils (test code = 4.6 See_Comment [A utomated message] The Eosinophils) system which ge nerated this result tra nsmitted reference range : <=4.0. The reference r christiano was not used to int erpret this result as normal/abnormal . [facility] HospitalUfgarkbPJANTVIKBH1383-03-04 10:24:00 Test Item Value Reference Range Interpretation Comments Basophils (test code = 0.7 See_Comment [Aut omated message] The Basophils) system which ge nerated this result tra nsmitted reference range : <=1.0. The reference r christiano was not used to int erpret this result as normal/abnormal . [facility] HospitalCvueyfcLIYCVMSSRQ6361-44-39 10:24:00 Test Item Value Reference Range Interpretation Comments Neutrophils # (test code = Neutrophils 5.3 1.5-8.1 #) [facility] HospitalPnubdeeILGKBOOXFR6532-97-03 10:24:00 Test Item Value Reference Range Interpretation Comments Lymphocytes # (test code = Lymphocytes 1.0 1.0-5.5 #) [facility] HospitalJnlztgxHQPIZWYEMG4063-25-13 10:24:00 Test Item Value Reference Range Interpretation Comments Monocytes # (test code 0.8 See_Comment [Aut omated message] The = Monocytes #) system which generated this result tra nsmitted reference range : <=0.8. The reference r christiano was not used to int erpret this result as normal/abnormal . [facility] HospitalOwbtigqKLXPDTLAIC6553-03-42 10:24:00 Test Item Value Reference Range Interpretation Comments Eosinophils # (test code 0.3 See_Comment [A utomated message] The = Eosinophils #) system whic h generated this result tra nsmitted reference range : <=0.5. The reference r christiano was not used to int erpret this result as normal/abnormal . [facility] HospitalJmhwnqfYORVTHDRVY2253-98-00 10:24:00 Test Item Value Reference Range Interpretation Comments Basophils # (test code 0.1 See_Comment [Aut omated message] The = Basophils #) system which generated this result tra nsmitted reference range : <=0.2. The reference r christiano was not used to int erpret this result as normal/abnormal . [facility] HospitalMahwolyJVMBPNUFTO8203-89-20 10:24:00 Test Item Value Reference Range Interpretation Comments WBC (test code = WBC) 7.5 3.7-10.4 [facility] HospitalXwddekoYWGJQOXUOQ5353-08-56 10:24:00 Test Item Value Reference Range Interpretation Comments RBC (test code = RBC) 3.85 4.20-5.40 [facility] HospitalMrpojyoSILFEVVDFV0546-22-82 10:24:00 Test Item Value Reference Range Interpretation Comments Hgb (test code = Hgb) 10.6 12.0-16.0 [place] 638190-12-07 10:24:00 Test Item Value Reference Range Interpretation Comments Hct (test code = Hct) 32.1 36.0-48.0 [facility] HospitalLcetswjEUABTJRMQO0530-20-16 10:24:00 Test Item Value Reference Range Interpretation Comments MCV (test code = MCV) 83.5 80.0-98.0 [facility] HospitalWqigkezCQLUXXKMEM6292-41-05 10:24:00 Test Item Value Reference Range Interpretation Comments MCH (test code = MCH) 27.7 pg 27.0-31.0 [place] [address]-12-07 10:24:00 Test Item Value Reference Range Interpretation Comments MCHC (test code = MCHC) 33.1 32.0-36.0 [facility] HospitalEjktoymDNCMMGPVWK0629-38-78 10:24:00 Test Item Value Reference Range Interpretation Comments RDW (test code = RDW) 16.8 11.5-14.5 [facility] HospitalMjryhgqFYQEFBJFRI6292-15-72 10:24:00 Test Item Value Reference Range Interpretation Comments Platelet (test code = Platelet) 185 133-450 [facility] HospitalTotdwclNBQHMQGEWZ0549-70-20 10:24:00 Test Item Value Reference Range Interpretation Comments MPV (test code = MPV) 8.4 7.4-10.4 [facility] [facility]00 Test Item Value Reference Range Interpretation Comments Glucose Lvl (test code = Glucose Lvl) 66 70-99 [facility]2020-12-07 10:24:00 Test Item Value Reference Range Interpretation Comments BUN (test code = BUN) 19 7-22 [facility]2020-12-07 10:24:00 Test Item Value Reference Range Interpretation Comments Creatinine Lvl (test code = Creatinine 1.82 0.50-1.40 Lvl) [facility]2020-12-07 10:24:00 Test Item Value Reference Range Interpretation Comments Sodium Lvl (test code = Sodium Lvl) 139 135-145 [place] 218490-12-07 10:24:00 Test Item Value Reference Range Interpretation Comments Potassium Lvl (test code = Potassium 4.2 3.5-5.1 Lvl) [place] 218490-12-07 10:24:00 Test Item Value Reference Range Interpretation Comments Chloride Lvl (test code = Chloride Lvl) 105 95-109 [place] 218490-12-07 10:24:00 Test Item Value Reference Range Interpretation Comments CO2 (test code = CO2) 28 24-32 [place] 218490-12-07 10:24:00 Test Item Value Reference Range Interpretation Comments Calcium Lvl (test code = Calcium Lvl) 8.2 8.5-10.5 [place] 218490-12-07 10:24:00 Test Item Value Reference Range Interpretation Comments AGAP (test code = AGAP) 10.2 10.0-20.0 [place] 218490-12-07 10:24:00 Test Item Value Reference Range Interpretation Comments eGFR (test code = eGFR) 26 [place] 638190-12-07 10:24:00 Test Item Value Reference Range Interpretation Comments Segs (test code = Segs) 70.6 45.0-75.0 [place] 638190-12-07 10:24:00 Test Item Value Reference Range Interpretation Comments Lymphocytes (test code = Lymphocytes) 13.2 20.0-40.0 [place] [address]-12-07 10:24:00 Test Item Value Reference Range Interpretation Comments Monocytes (test code = Monocytes) 10.9 2.0-12.0 [place] [address]-12-07 10:24:00 Test Item Value Reference Range Interpretation Comments Eosinophils (test code = 4.6 See_Comment [A utomated message] The Eosinophils) system which ge nerated this result tra nsmitted reference range : <=4.0. The reference r christiano was not used to int erpret this result as normal/abnormal . [place] 638190-12-07 10:24:00 Test Item Value Reference Range Interpretation Comments Basophils (test code = 0.7 See_Comment [Aut omated message] The Basophils) system which ge nerated this result tra nsmitted reference range : <=1.0. The reference r christiano was not used to int erpret this result as normal/abnormal . [facility]urranvLPVKBVAXEQ1773-51-76 10:24:00 Test Item Value Reference Range Interpretation Comments Neutrophils # (test code = Neutrophils 5.3 1.5-8.1 #) [facility]VnfmhyfBCQMVPRDFH2802-56-41 10:24:00 Test Item Value Reference Range Interpretation Comments Lymphocytes # (test code = Lymphocytes 1.0 1.0-5.5 #) [facility] HospitalDbapgihUBROTQXLSH4351-35-89 10:24:00 Test Item Value Reference Range Interpretation Comments Monocytes # (test code 0.8 See_Comment [Aut omated message] The = Monocytes #) system which generated this result tra nsmitted reference range : <=0.8. The reference r christiano was not used to int erpret this result as normal/abnormal . [facility] HospitalCcbxejfLNBNADWXGZ4666-03-04 10:24:00 Test Item Value Reference Range Interpretation Comments Eosinophils # (test code 0.3 See_Comment [A utomated message] The = Eosinophils #) system whic h generated this result tra nsmitted reference range : <=0.5. The reference r christiano was not used to int erpret this result as normal/abnormal . [facility] HospitalMmcneqhIPUFJPKMAN7045-06-98 10:24:00 Test Item Value Reference Range Interpretation Comments Basophils # (test code 0.1 See_Comment [Aut omated message] The = Basophils #) system which generated this result tra nsmitted reference range : <=0.2. The reference r christiano was not used to int erpret this result as normal/abnormal . [facility] HospitalFsbbokzPKPELYVHJR2210-13-14 10:24:00 Test Item Value Reference Range Interpretation Comments WBC (test code = WBC) 7.5 3.7-10.4 [facility] HospitalHqkakvdDENSXWKTNT3599-17-39 10:24:00 Test Item Value Reference Range Interpretation Comments RBC (test code = RBC) 3.85 4.20-5.40 [place] 638190-12-07 10:24:00 Test Item Value Reference Range Interpretation Comments Hgb (test code = Hgb) 10.6 12.0-16.0 [place] 638190-12-07 10:24:00 Test Item Value Reference Range Interpretation Comments Hct (test code = Hct) 32.1 36.0-48.0 [place] 638190-12-07 10:24:00 Test Item Value Reference Range Interpretation Comments MCV (test code = MCV) 83.5 80.0-98.0 [place] 638190-12-07 10:24:00 Test Item Value Reference Range Interpretation Comments MCH (test code = MCH) 27.7 pg 27.0-31.0 [place] 638190-12-07 10:24:00 Test Item Value Reference Range Interpretation Comments MCHC (test code = MCHC) 33.1 32.0-36.0 [place] 638190-12-07 10:24:00 Test Item Value Reference Range Interpretation Comments RDW (test code = RDW) 16.8 11.5-14.5 [place] [address]-12-07 10:24:00 Test Item Value Reference Range Interpretation Comments Platelet (test code = Platelet) 185 133-450 [facility] HospitalRxpkormIAESUWPTTL4289-41-98 10:24:00 Test Item Value Reference Range Interpretation Comments MPV (test code = MPV) 8.4 7.4-10.4 [facility]2020-12-07 10:24:00 Test Item Value Reference Range Interpretation Comments Glucose Lvl (test code = Glucose Lvl) 66 70-99 [facility]2020-12-07 10:24:00 Test Item Value Reference Range Interpretation Comments BUN (test code = BUN) 19 7-22 [facility]2020-12-07 10:24:00 Test Item Value Reference Range Interpretation Comments Creatinine Lvl (test code = Creatinine 1.82 0.50-1.40 Lvl) [facility]2020-12-07 10:24:00 Test Item Value Reference Range Interpretation Comments Sodium Lvl (test code = Sodium Lvl) 139 135-145 [facility]2020-12-07 10:24:00 Test Item Value Reference Range Interpretation Comments Potassium Lvl (test code = Potassium 4.2 3.5-5.1 Lvl) [facility]2020-12-07 10:24:00 Test Item Value Reference Range Interpretation Comments Chloride Lvl (test code = Chloride Lvl) 105 95-109 [facility]2020-12-07 10:24:00 Test Item Value Reference Range Interpretation Comments CO2 (test code = CO2) 28 24-32 [facility]2020-12-07 10:24:00 Test Item Value Reference Range Interpretation Comments Calcium Lvl (test code = Calcium Lvl) 8.2 8.5-10.5 [place] 218490-12-07 10:24:00 Test Item Value Reference Range Interpretation Comments AGAP (test code = AGAP) 10.2 10.0-20.0 [place] 218490-12-07 10:24:00 Test Item Value Reference Range Interpretation Comments eGFR (test code = eGFR) 26 [facility] HospitalDvrlzqjWNARHZBAPF6618-94-71 10:24:00 Test Item Value Reference Range Interpretation Comments Segs (test code = Segs) 70.6 45.0-75.0 [facility] HospitalDlysfbwGQDYHHNWLK7245-21-53 10:24:00 Test Item Value Reference Range Interpretation Comments Lymphocytes (test code = Lymphocytes) 13.2 20.0-40.0 [facility] HospitalKlodyalEMCOQCVVXF9234-55-67 10:24:00 Test Item Value Reference Range Interpretation Comments Monocytes (test code = Monocytes) 10.9 2.0-12.0 [facility] HospitalZkcvfqhTBNNWYNIYB9830-50-56 10:24:00 Test Item Value Reference Range Interpretation Comments Eosinophils (test code = 4.6 See_Comment [A utomated message] The Eosinophils) system which ge nerated this result tra nsmitted reference range : <=4.0. The reference r christiano was not used to int erpret this result as normal/abnormal . [facility] HospitalJneatqvCCNCGUSDSR4126-69-94 10:24:00 Test Item Value Reference Range Interpretation Comments Basophils (test code = 0.7 See_Comment [Aut omated message] The Basophils) system which ge nerated this result tra nsmitted reference range : <=1.0. The reference r christiano was not used to int erpret this result as normal/abnormal . [facility] HospitalRexnfrdNDKNCDGFHD1178-27-40 10:24:00 Test Item Value Reference Range Interpretation Comments Neutrophils # (test code = Neutrophils 5.3 1.5-8.1 #) [facility] HospitalZybmltaIVKBIJEGIJ1832-76-21 10:24:00 Test Item Value Reference Range Interpretation Comments Lymphocytes # (test code = Lymphocytes 1.0 1.0-5.5 #) [facility] HospitalMrykapmRJCCDPQGJK4379-98-92 10:24:00 Test Item Value Reference Range Interpretation Comments Monocytes # (test code 0.8 See_Comment [Aut omated message] The = Monocytes #) system which generated this result tra nsmitted reference range : <=0.8. The reference r christiano was not used to int erpret this result as normal/abnormal . [facility] HospitalFmlmvuxDKPHASUWOA6359-20-91 10:24:00 Test Item Value Reference Range Interpretation Comments Eosinophils # (test code 0.3 See_Comment [A utomated message] The = Eosinophils #) system whic h generated this result tra nsmitted reference range : <=0.5. The reference r christiano was not used to int erpret this result as normal/abnormal . [facility] HospitalVtjgzvnMIXHZMERKI1941-02-43 10:24:00 Test Item Value Reference Range Interpretation Comments Basophils # (test code 0.1 See_Comment [Aut omated message] The = Basophils #) system which generated this result tra nsmitted reference range : <=0.2. The reference r christiano was not used to int erpret this result as normal/abnormal . [facility] HospitalFgewzcpFYBKOPNDOS6398-58-86 10:24:00 Test Item Value Reference Range Interpretation Comments WBC (test code = WBC) 7.5 3.7-10.4 [facility] HospitalGijvobtBGYRZIDJON5455-75-37 10:24:00 Test Item Value Reference Range Interpretation Comments RBC (test code = RBC) 3.85 4.20-5.40 [facility] HospitalGkpxodiYPHVEJTIST7980-46-78 10:24:00 Test Item Value Reference Range Interpretation Comments Hgb (test code = Hgb) 10.6 12.0-16.0 [place] 638190-12-07 10:24:00 Test Item Value Reference Range Interpretation Comments Hct (test code = Hct) 32.1 36.0-48.0 [facility] HospitalLedqrwfTXLLXEXFOP5418-23-51 10:24:00 Test Item Value Reference Range Interpretation Comments MCV (test code = MCV) 83.5 80.0-98.0 [facility] HospitalRincfeyUKQKRADCIV1838-50-41 10:24:00 Test Item Value Reference Range Interpretation Comments MCH (test code = MCH) 27.7 pg 27.0-31.0 [place] [address]-12-07 10:24:00 Test Item Value Reference Range Interpretation Comments MCHC (test code = MCHC) 33.1 32.0-36.0 [place] [address]-12-07 10:24:00 Test Item Value Reference Range Interpretation Comments RDW (test code = RDW) 16.8 11.5-14.5 [place] [address]-12-07 10:24:00 Test Item Value Reference Range Interpretation Comments Platelet (test code = Platelet) 185 133-450 [facility] HospitalAwogzklQSUMJKCOON2383-80-01 10:24:00 Test Item Value Reference Range Interpretation Comments MPV (test code = MPV) 8.4 7.4-10.4 [facility]2020-12-07 10:24:00 Test Item Value Reference Range Interpretation Comments Glucose Lvl (test code = Glucose Lvl) 66 70-99 [facility]2020-12-07 10:24:00 Test Item Value Reference Range Interpretation Comments BUN (test code = BUN) 19 7-22 [place] 218490-12-07 10:24:00 Test Item Value Reference Range Interpretation Comments Creatinine Lvl (test code = Creatinine 1.82 0.50-1.40 Lvl) [facility]2020-12-07 10:24:00 Test Item Value Reference Range Interpretation Comments Sodium Lvl (test code = Sodium Lvl) 139 135-145 [facility]2020-12-07 10:24:00 Test Item Value Reference Range Interpretation Comments Potassium Lvl (test code = Potassium 4.2 3.5-5.1 Lvl) [facility]2020-12-07 10:24:00 Test Item Value Reference Range Interpretation Comments Chloride Lvl (test code = Chloride Lvl) 105 95-109 [place] 218490-12-07 10:24:00 Test Item Value Reference Range Interpretation Comments CO2 (test code = CO2) 28 24-32 [facility]2020-12-07 10:24:00 Test Item Value Reference Range Interpretation Comments Calcium Lvl (test code = Calcium Lvl) 8.2 8.5-10.5 [place] 218490-12-07 10:24:00 Test Item Value Reference Range Interpretation Comments AGAP (test code = AGAP) 10.2 10.0-20.0 [facility]2020-12-07 10:24:00 Test Item Value Reference Range Interpretation Comments eGFR (test code = eGFR) 26 [facility] HospitalCmkoqgiDSMYSLRTOL5828-97-89 10:24:00 Test Item Value Reference Range Interpretation Comments Segs (test code = Segs) 70.6 45.0-75.0 [facility] HospitalAbtjmwcXKTMFTBDVM8892-45-76 10:24:00 Test Item Value Reference Range Interpretation Comments Lymphocytes (test code = Lymphocytes) 13.2 20.0-40.0 [facility] HospitalHbureluRNBKPPIHVA3106-25-91 10:24:00 Test Item Value Reference Range Interpretation Comments Monocytes (test code = Monocytes) 10.9 2.0-12.0 [facility] HospitalOxqjfbvFKOPEOTROE8054-64-29 10:24:00 Test Item Value Reference Range Interpretation Comments Eosinophils (test code = 4.6 See_Comment [A utomated message] The Eosinophils) system which ge nerated this result tra nsmitted reference range : <=4.0. The reference r christiano was not used to int erpret this result as normal/abnormal . [facility] HospitalHpgdcejVWYRZRKWQR2127-80-56 10:24:00 Test Item Value Reference Range Interpretation Comments Basophils (test code = 0.7 See_Comment [Aut omated message] The Basophils) system which ge nerated this result tra nsmitted reference range : <=1.0. The reference r christiano was not used to int erpret this result as normal/abnormal . [facility] HospitalEpsxrmzPCLXMVPNSV0163-81-30 10:24:00 Test Item Value Reference Range Interpretation Comments Neutrophils # (test code = Neutrophils 5.3 1.5-8.1 #) [facility] HospitalGkbsbigPUNHEWTRWI5144-40-18 10:24:00 Test Item Value Reference Range Interpretation Comments Lymphocytes # (test code = Lymphocytes 1.0 1.0-5.5 #) [facility] HospitalKhgnpzmIKQZQHBASZ3898-93-86 10:24:00 Test Item Value Reference Range Interpretation Comments Monocytes # (test code 0.8 See_Comment [Aut omated message] The = Monocytes #) system which generated this result tra nsmitted reference range : <=0.8. The reference r christiano was not used to int erpret this result as normal/abnormal . [facility] HospitalEkpupjfHKCJYXRSWQ7402-78-25 10:24:00 Test Item Value Reference Range Interpretation Comments Eosinophils # (test code 0.3 See_Comment [A utomated message] The = Eosinophils #) system whic h generated this result tra nsmitted reference range : <=0.5. The reference r christiano was not used to int erpret this result as normal/abnormal . [facility] HospitalPkrcbrdSESUKAHTXZ3561-52-32 10:24:00 Test Item Value Reference Range Interpretation Comments Basophils # (test code 0.1 See_Comment [Aut omated message] The = Basophils #) system which generated this result tra nsmitted reference range : <=0.2. The reference r christiano was not used to int erpret this result as normal/abnormal . [facility] HospitalCwumihfGXMAIRLJXF9596-63-10 10:24:00 Test Item Value Reference Range Interpretation Comments WBC (test code = WBC) 7.5 3.7-10.4 [facility] HospitalWqjgxfkVQBRLREYGC8888-19-31 10:24:00 Test Item Value Reference Range Interpretation Comments RBC (test code = RBC) 3.85 4.20-5.40 [facility] HospitalSnojxvkOYFYPYLARU5727-03-01 10:24:00 Test Item Value Reference Range Interpretation Comments Hgb (test code = Hgb) 10.6 12.0-16.0 [facility] HospitalXpcltwmHCTXQVNKTE6501-76-82 10:24:00 Test Item Value Reference Range Interpretation Comments Hct (test code = Hct) 32.1 36.0-48.0 [facility] HospitalLsfnondJGTWKQPBOL1265-91-45 10:24:00 Test Item Value Reference Range Interpretation Comments MCV (test code = MCV) 83.5 80.0-98.0 [facility] HospitalSceaebtDVABDHNDBG5152-13-06 10:24:00 Test Item Value Reference Range Interpretation Comments MCH (test code = MCH) 27.7 pg 27.0-31.0 [facility] HospitalPbcqlfzOLMIJSSDRQ6945-46-61 10:24:00 Test Item Value Reference Range Interpretation Comments MCHC (test code = MCHC) 33.1 32.0-36.0 [facility] HospitalSnlhlftABFIARKTNL0775-22-81 10:24:00 Test Item Value Reference Range Interpretation Comments RDW (test code = RDW) 16.8 11.5-14.5 [facility] HospitalKuafgikCMJINVRZCB2090-19-88 10:24:00 Test Item Value Reference Range Interpretation Comments Platelet (test code = Platelet) 185 133-450 [facility]HFQKFURRXD2827[facility]60 10:24:00 Test Item Value Reference Range Interpretation Comments MPV (test code = MPV) 8.4 7.4-10.4 [place] 218490-12-06 09:53:13 Test Item Value Reference Range Interpretation Comments Magnesium Lvl (test code = Magnesium 2.2 1.8-2.4 Lvl) [place] 218490-12-06 09:53:13 Test Item Value Reference Range Interpretation Comments Phosphorus (test code = Phosphorus) 2.9 2.5-4.5 [place] 218490-12-06 09:53:13 Test Item Value Reference Range Interpretation Comments Glucose Lvl (test code = Glucose Lvl) 102 70-99 [place] 218490-12-06 09:53:13 Test Item Value Reference Range Interpretation Comments BUN (test code = BUN) 17 7-22 [place] 218490-12-06 09:53:13 Test Item Value Reference Range Interpretation Comments Creatinine Lvl (test code = Creatinine 1.51 0.50-1.40 Lvl) [place] 218490-12-06 09:53:13 Test Item Value Reference Range Interpretation Comments Sodium Lvl (test code = Sodium Lvl) 140 135-145 [place] 218490-12-06 09:53:13 Test Item Value Reference Range Interpretation Comments Potassium Lvl (test code = Potassium 3.5 3.5-5.1 Lvl) [place] 218490-12-06 09:53:13 Test Item Value Reference Range Interpretation Comments Chloride Lvl (test code = Chloride Lvl) 106 95-109 [place] 218490-12-06 09:53:13 Test Item Value Reference Range Interpretation Comments CO2 (test code = CO2) 29 24-32 [place] 218490-12-06 09:53:13 Test Item Value Reference Range Interpretation Comments Calcium Lvl (test code = Calcium Lvl) 8.3 8.5-10.5 [place] [address]-12-06 09:53:13 Test Item Value Reference Range Interpretation Comments AGAP (test code = AGAP) 8.5 10.0-20.0 [facility]2020-12-06 09:53:13 Test Item Value Reference Range Interpretation Comments eGFR (test code = eGFR) 33 [place] [address]-12-06 09:53:13 Test Item Value Reference Range Interpretation Comments WBC (test code = WBC) 8.7 3.7-10.4 [place] 638190-12-06 09:53:13 Test Item Value Reference Range Interpretation Comments RBC (test code = RBC) 3.96 4.20-5.40 [place] [address]-12-06 09:53:13 Test Item Value Reference Range Interpretation Comments Hgb (test code = Hgb) 10.7 12.0-16.0 [place] [address]-12-06 09:53:13 Test Item Value Reference Range Interpretation Comments Hct (test code = Hct) 32.8 36.0-48.0 [place] 638190-12-06 09:53:13 Test Item Value Reference Range Interpretation Comments MCV (test code = MCV) 83.0 80.0-98.0 [place] 638190-12-06 09:53:13 Test Item Value Reference Range Interpretation Comments MCH (test code = MCH) 26.9 pg 27.0-31.0 [facility] HospitalJnjiubnDTCIGYGWVP8879-65-66 09:53:13 Test Item Value Reference Range Interpretation Comments MCHC (test code = MCHC) 32.4 32.0-36.0 [facility] HospitalIcloshtVZTQWQHKDA7184-32-02 09:53:13 Test Item Value Reference Range Interpretation Comments RDW (test code = RDW) 16.5 11.5-14.5 [place] 638190-12-06 09:53:13 Test Item Value Reference Range Interpretation Comments Platelet (test code = Platelet) 157 133-450 [place] [address]-12-06 09:53:13 Test Item Value Reference Range Interpretation Comments MPV (test code = MPV) 7.5 7.4-10.4 [place] 638190-12-06 09:53:13 Test Item Value Reference Range Interpretation Comments Neutrophils # (test code = Neutrophils 7.2 1.5-8.1 #) [facility] HospitalGyxxjxpWNPCVCTDST9313-05-68 09:53:13 Test Item Value Reference Range Interpretation Comments Lymphocytes # (test code = Lymphocytes 0.9 1.0-5.5 #) [place] [address]-12-06 09:53:13 Test Item Value Reference Range Interpretation Comments Monocytes # (test code 0.5 See_Comment [Aut omated message] The = Monocytes #) system which generated this result tra nsmitted reference range : <=0.8. The reference r christiano was not used to int erpret this result as normal/abnormal . [place] 638190-12-06 09:53:13 Test Item Value Reference Range Interpretation Comments Basophils # (test code 0.1 See_Comment [Aut omated message] The = Basophils #) system which generated this result tra nsmitted reference range : <=0.2. The reference r christiano was not used to int erpret this result as normal/abnormal . [place] 638190-12-06 09:53:13 Test Item Value Reference Range Interpretation Comments Segs (test code = Segs) 83.0 45.0-75.0 [place] [address]-12-06 09:53:13 Test Item Value Reference Range Interpretation Comments Bands (test code = 0.0 See_Comment [Automat ed message] The Bands) system which ge nerated this result transmit shbea reference range : <=11.0. The reference r christiano was not used to interpr et this result as edy l/abnormal. [facility] HospitalDkttsksQQJBIXDTUU2818-73-52 09:53:13 Test Item Value Reference Range Interpretation Comments Lymphocytes (test code = Lymphocytes) 10.0 20.0-40.0 [place] [address]-12-06 09:53:13 Test Item Value Reference Range Interpretation Comments Monocytes (test code = Monocytes) 6.0 2.0-12.0 [place] [address]-12-06 09:53:13 Test Item Value Reference Range Interpretation Comments Basophils (test code = 1.0 See_Comment [Aut omated message] The Basophils) system which ge nerated this result tra nsmitted reference range : <=1.0. The reference r christiano was not used to int erpret this result as normal/abnormal . [place] [address]-12-06 09:53:13 Test Item Value Reference Range Interpretation Comments Atypical Lymphs (test code = Atypical 0.0 Lymphs) [place] [address]-12-06 09:53:13 Test Item Value Reference Range Interpretation Comments RBC Morph (test code = Normal (09/05/20 3:53 RBC Morph) AM) [place] [address]-12-06 09:53:13 Test Item Value Reference Range Interpretation Comments Plt Morph (test code = Normal (09/05/20 3:53 Plt Morph) AM) [place] [address]-12-06 09:53:13 Test Item Value Reference Range Interpretation Comments Magnesium Lvl (test code = Magnesium 2.2 1.8-2.4 Lvl) [place] 218490-12-06 09:53:13 Test Item Value Reference Range Interpretation Comments Phosphorus (test code = Phosphorus) 2.9 2.5-4.5 [place] 218490-12-06 09:53:13 Test Item Value Reference Range Interpretation Comments Glucose Lvl (test code = Glucose Lvl) 102 70-99 [place] 218490-12-06 09:53:13 Test Item Value Reference Range Interpretation Comments BUN (test code = BUN) 17 7-22 [place] [address]-12-06 09:53:13 Test Item Value Reference Range Interpretation Comments Creatinine Lvl (test code = Creatinine 1.51 0.50-1.40 Lvl) [place] [address]-12-06 09:53:13 Test Item Value Reference Range Interpretation Comments Sodium Lvl (test code = Sodium Lvl) 140 135-145 [place] [address]-12-06 09:53:13 Test Item Value Reference Range Interpretation Comments Potassium Lvl (test code = Potassium 3.5 3.5-5.1 Lvl) [place] [address]-12-06 09:53:13 Test Item Value Reference Range Interpretation Comments Chloride Lvl (test code = Chloride Lvl) 106 95-109 [place] [address]-12-06 09:53:13 Test Item Value Reference Range Interpretation Comments CO2 (test code = CO2) 29 24-32 [place] [address]-12-06 09:53:13 Test Item Value Reference Range Interpretation Comments Calcium Lvl (test code = Calcium Lvl) 8.3 8.5-10.5 [place] [address]-12-06 09:53:13 Test Item Value Reference Range Interpretation Comments AGAP (test code = AGAP) 8.5 10.0-20.0 [place] [address]-12-06 09:53:13 Test Item Value Reference Range Interpretation Comments eGFR (test code = eGFR) 33 [place] [address]-12-06 09:53:13 Test Item Value Reference Range Interpretation Comments Magnesium Lvl (test code = Magnesium 2.2 1.8-2.4 Lvl) [place] [address]-12-06 09:53:13 Test Item Value Reference Range Interpretation Comments Phosphorus (test code = Phosphorus) 2.9 2.5-4.5 [place] [address]-12-06 09:53:13 Test Item Value Reference Range Interpretation Comments Glucose Lvl (test code = Glucose Lvl) 102 70-99 [place] [address]-12-06 09:53:13 Test Item Value Reference Range Interpretation Comments BUN (test code = BUN) 17 7-22 [place] [address]-12-06 09:53:13 Test Item Value Reference Range Interpretation Comments Creatinine Lvl (test code = Creatinine 1.51 0.50-1.40 Lvl) [place] 218490-12-06 09:53:13 Test Item Value Reference Range Interpretation Comments Sodium Lvl (test code = Sodium Lvl) 140 135-145 [place] 218490-12-06 09:53:13 Test Item Value Reference Range Interpretation Comments Potassium Lvl (test code = Potassium 3.5 3.5-5.1 Lvl) [place] 218490-12-06 09:53:13 Test Item Value Reference Range Interpretation Comments Chloride Lvl (test code = Chloride Lvl) 106 95-109 [facility] 09:53:13 Test Item Value Reference Range Interpretation Comments WBC (test code = WBC) 8.7 3.7-10.4 [place] 218490-12-06 09:53:13 Test Item Value Reference Range Interpretation Comments CO2 (test code = CO2) 29 24-32 [place] 218490-12-06 09:53:13 Test Item Value Reference Range Interpretation Comments Calcium Lvl (test code = Calcium Lvl) 8.3 8.5-10.5 [place] 218490-12-06 09:53:13 Test Item Value Reference Range Interpretation Comments AGAP (test code = AGAP) 8.5 10.0-20.0 [place] 218490-12-06 09:53:13 Test Item Value Reference Range Interpretation Comments eGFR (test code = eGFR) 33 [place] [address]-12-06 09:53:13 Test Item Value Reference Range Interpretation Comments WBC (test code = WBC) 8.7 3.7-10.4 [place] [address]-12-06 09:53:13 Test Item Value Reference Range Interpretation Comments RBC (test code = RBC) 3.96 4.20-5.40 [place] [address]-12-06 09:53:13 Test Item Value Reference Range Interpretation Comments Hgb (test code = Hgb) 10.7 12.0-16.0 [place] [address]-12-06 09:53:13 Test Item Value Reference Range Interpretation Comments Hct (test code = Hct) 32.8 36.0-48.0 [place] [address]-12-06 09:53:13 Test Item Value Reference Range Interpretation Comments MCV (test code = MCV) 83.0 80.0-98.0 [place] [address]-12-06 09:53:13 Test Item Value Reference Range Interpretation Comments MCH (test code = MCH) 26.9 pg 27.0-31.0 [place] [address]-12-06 09:53:13 Test Item Value Reference Range Interpretation Comments RBC (test code = RBC) 3.96 4.20-5.40 [place] [address]-12-06 09:53:13 Test Item Value Reference Range Interpretation Comments MCHC (test code = MCHC) 32.4 32.0-36.0 [place] [address]-12-06 09:53:13 Test Item Value Reference Range Interpretation Comments RDW (test code = RDW) 16.5 11.5-14.5 [place] [address]-12-06 09:53:13 Test Item Value Reference Range Interpretation Comments Platelet (test code = Platelet) 157 133-450 [place] 638190-12-06 09:53:13 Test Item Value Reference Range Interpretation Comments MPV (test code = MPV) 7.5 7.4-10.4 [place] 638190-12-06 09:53:13 Test Item Value Reference Range Interpretation Comments Neutrophils # (test code = Neutrophils 7.2 1.5-8.1 #) [facility]9596[facility]55[facility] 09:53:13 Test Item Value Reference Range Interpretation Comments Lymphocytes # (test code = Lymphocytes 0.9 1.0-5.5 #) [facility]DrkwfhqYCYAOIGINL7291-41-75 09:53:13 Test Item Value Reference Range Interpretation Comments Monocytes # (test code 0.5 See_Comment [Aut omated message] The = Monocytes #) system which generated this result tra nsmitted reference range : <=0.8. The reference r christiano was not used to int erpret this result as normal/abnormal . [place] [address]-12-06 09:53:13 Test Item Value Reference Range Interpretation Comments Basophils # (test code 0.1 See_Comment [Aut omated message] The = Basophils #) system which generated this result tra nsmitted reference range : <=0.2. The reference r christiano was not used to int erpret this result as normal/abnormal . [facility] HospitalDicsxsuLKZQATPCGQ5718-44-34 09:53:13 Test Item Value Reference Range Interpretation Comments Segs (test code = Segs) 83.0 45.0-75.0 [place] [address]-12-06 09:53:13 Test Item Value Reference Range Interpretation Comments Bands (test code = 0.0 See_Comment [Automat ed message] The Bands) system which ge nerated this result transmit sheba reference range : <=11.0. The reference r christiano was not used to interpr et this result as edy l/abnormal. [facility] HospitalQyhqocpMAHOCGSKMH1548-06-75 09:53:13 Test Item Value Reference Range Interpretation Comments Hgb (test code = Hgb) 10.7 12.0-16.0 [place] [address]-12-06 09:53:13 Test Item Value Reference Range Interpretation Comments Lymphocytes (test code = Lymphocytes) 10.0 20.0-40.0 [place] [address]-12-06 09:53:13 Test Item Value Reference Range Interpretation Comments Monocytes (test code = Monocytes) 6.0 2.0-12.0 [facility] HospitalJkhcpeuQFDWVDTOPS2439-60-89 09:53:13 Test Item Value Reference Range Interpretation Comments Basophils (test code = 1.0 See_Comment [Aut omated message] The Basophils) system which ge nerated this result tra nsmitted reference range : <=1.0. The reference r christiano was not used to int erpret this result as normal/abnormal . [facility] HospitalJkgerrwDKQEZZMZJT1819-27-98 09:53:13 Test Item Value Reference Range Interpretation Comments Atypical Lymphs (test code = Atypical 0.0 Lymphs) [place] 638190-12-06 09:53:13 Test Item Value Reference Range Interpretation Comments RBC Morph (test code = Normal (09/05/20 3:53 RBC Morph) AM) [facility] HospitalLrervxdAUYWRUJTQQ0599-31-64 09:53:13 Test Item Value Reference Range Interpretation Comments Plt Morph (test code = Normal (09/05/20 3:53 Plt Morph) AM) [facility] HospitalPbowczaZDSAOUVTTC3675-70-71 09:53:13 Test Item Value Reference Range Interpretation Comments Hct (test code = Hct) 32.8 36.0-48.0 [facility] HospitalKboahaeTJIEKBLSMS1001-06-02 09:53:13 Test Item Value Reference Range Interpretation Comments MCV (test code = MCV) 83.0 80.0-98.0 [facility] HospitalBvvaqgmAXWVAKIVUX5802-91-55 09:53:13 Test Item Value Reference Range Interpretation Comments MCH (test code = MCH) 26.9 pg 27.0-31.0 [facility] HospitalKvvgfqcRUZXCYRRBD2050-26-05 09:53:13 Test Item Value Reference Range Interpretation Comments MCHC (test code = MCHC) 32.4 32.0-36.0 [place] 638190-12-06 09:53:13 Test Item Value Reference Range Interpretation Comments RDW (test code = RDW) 16.5 11.5-14.5 [place] 638190-12-06 09:53:13 Test Item Value Reference Range Interpretation Comments Platelet (test code = Platelet) 157 133-450 [place] 638190-12-06 09:53:13 Test Item Value Reference Range Interpretation Comments MPV (test code = MPV) 7.5 7.4-10.4 [place] 638190-12-06 09:53:13 Test Item Value Reference Range Interpretation Comments Neutrophils # (test code = Neutrophils 7.2 1.5-8.1 #) [facility] HospitalUsixbopDXIRBCMHSE4068-08-13 09:53:13 Test Item Value Reference Range Interpretation Comments Lymphocytes # (test code = Lymphocytes 0.9 1.0-5.5 #) [place] [address]-12-06 09:53:13 Test Item Value Reference Range Interpretation Comments Monocytes # (test code 0.5 See_Comment [Aut omated message] The = Monocytes #) system which generated this result tra nsmitted reference range : <=0.8. The reference r christiano was not used to int erpret this result as normal/abnormal . [place] [address]-12-06 09:53:13 Test Item Value Reference Range Interpretation Comments Basophils # (test code 0.1 See_Comment [Aut omated message] The = Basophils #) system which generated this result tra nsmitted reference range : <=0.2. The reference r christiano was not used to int erpret this result as normal/abnormal . [place] 638190-12-06 09:53:13 Test Item Value Reference Range Interpretation Comments Segs (test code = Segs) 83.0 45.0-75.0 [place] [address]-12-06 09:53:13 Test Item Value Reference Range Interpretation Comments Bands (test code = 0.0 See_Comment [Automat ed message] The Bands) system which ge nerated this result transmit sheba reference range : <=11.0. The reference r christiano was not used to interpr et this result as edy l/abnormal. [place] 638190-12-06 09:53:13 Test Item Value Reference Range Interpretation Comments Lymphocytes (test code = Lymphocytes) 10.0 20.0-40.0 [place] [address]-12-06 09:53:13 Test Item Value Reference Range Interpretation Comments Monocytes (test code = Monocytes) 6.0 2.0-12.0 [place] [address]-12-06 09:53:13 Test Item Value Reference Range Interpretation Comments Basophils (test code = 1.0 See_Comment [Aut omated message] The Basophils) system which ge nerated this result tra nsmitted reference range : <=1.0. The reference r christiano was not used to int erpret this result as normal/abnormal . [place] [address]-12-06 09:53:13 Test Item Value Reference Range Interpretation Comments Atypical Lymphs (test code = Atypical 0.0 Lymphs) [address]12-06 09:53:13 Test Item Value Reference Range Interpretation Comments RBC Morph (test code = Normal (09/05/20 3:53 RBC Morph) AM) [address]12-06 09:53:13 Test Item Value Reference Range Interpretation Comments Plt Morph (test code = Normal (09/05/20 3:53 Plt Morph) AM) [place] [address]-12-06 09:53:13 Test Item Value Reference Range Interpretation Comments Magnesium Lvl (test code = Magnesium 2.2 1.8-2.4 Lvl) [place] [address]-12-06 09:53:13 Test Item Value Reference Range Interpretation Comments Phosphorus (test code = Phosphorus) 2.9 2.5-4.5 [place] [address]-12-06 09:53:13 Test Item Value Reference Range Interpretation Comments Glucose Lvl (test code = Glucose Lvl) 102 70-99 [place] [address]-12-06 09:53:13 Test Item Value Reference Range Interpretation Comments BUN (test code = BUN) 17 7-22 [place] [address]-12-06 09:53:13 Test Item Value Reference Range Interpretation Comments Creatinine Lvl (test code = Creatinine 1.51 0.50-1.40 Lvl) [place] [address]-12-06 09:53:13 Test Item Value Reference Range Interpretation Comments Sodium Lvl (test code = Sodium Lvl) 140 135-145 [place] [address]-12-06 09:53:13 Test Item Value Reference Range Interpretation Comments Potassium Lvl (test code = Potassium 3.5 3.5-5.1 Lvl) [place] [address]-12-06 09:53:13 Test Item Value Reference Range Interpretation Comments Chloride Lvl (test code = Chloride Lvl) 106 95-109 [place] [address]-12-06 09:53:13 Test Item Value Reference Range Interpretation Comments CO2 (test code = CO2) 29 24-32 [place] 218490-12-06 09:53:13 Test Item Value Reference Range Interpretation Comments Calcium Lvl (test code = Calcium Lvl) 8.3 8.5-10.5 [place] 218490-12-06 09:53:13 Test Item Value Reference Range Interpretation Comments AGAP (test code = AGAP) 8.5 10.0-20.0 [place] [address]-12-06 09:53:13 Test Item Value Reference Range Interpretation Comments eGFR (test code = eGFR) 33 [place] [address]-12-06 09:53:13 Test Item Value Reference Range Interpretation Comments WBC (test code = WBC) 8.7 3.7-10.4 [place] [address]-12-06 09:53:13 Test Item Value Reference Range Interpretation Comments RBC (test code = RBC) 3.96 4.20-5.40 [place] [address]-12-06 09:53:13 Test Item Value Reference Range Interpretation Comments Hgb (test code = Hgb) 10.7 12.0-16.0 [place] [address]-12-06 09:53:13 Test Item Value Reference Range Interpretation Comments Hct (test code = Hct) 32.8 36.0-48.0 [place] [address]-12-06 09:53:13 Test Item Value Reference Range Interpretation Comments MCV (test code = MCV) 83.0 80.0-98.0 [place] [address]-12-06 09:53:13 Test Item Value Reference Range Interpretation Comments MCH (test code = MCH) 26.9 pg 27.0-31.0 [place] [address]-12-06 09:53:13 Test Item Value Reference Range Interpretation Comments MCHC (test code = MCHC) 32.4 32.0-36.0 [place] [address]-12-06 09:53:13 Test Item Value Reference Range Interpretation Comments RDW (test code = RDW) 16.5 11.5-14.5 [place] [address]-12-06 09:53:13 Test Item Value Reference Range Interpretation Comments Platelet (test code = Platelet) 157 133-450 [place] [address]-12-06 09:53:13 Test Item Value Reference Range Interpretation Comments MPV (test code = MPV) 7.5 7.4-10.4 [place] 638190-12-06 09:53:13 Test Item Value Reference Range Interpretation Comments Neutrophils # (test code = Neutrophils 7.2 1.5-8.1 #) [place] 638190-12-06 09:53:13 Test Item Value Reference Range Interpretation Comments Lymphocytes # (test code = Lymphocytes 0.9 1.0-5.5 #) [facility]PhghejpZNNIGUELDZ5769-03-69 09:53:13 Test Item Value Reference Range Interpretation Comments Monocytes # (test code 0.5 See_Comment [Aut omated message] The = Monocytes #) system which generated this result tra nsmitted reference range : <=0.8. The reference r christiano was not used to int erpret this result as normal/abnormal . [place] [address]-12-06 09:53:13 Test Item Value Reference Range Interpretation Comments Basophils # (test code 0.1 See_Comment [Aut omated message] The = Basophils #) system which generated this result tra nsmitted reference range : <=0.2. The reference r christiano was not used to int erpret this result as normal/abnormal . [facility] HospitalHrdsturYLNNFFTCVP2870-97-20 09:53:13 Test Item Value Reference Range Interpretation Comments Segs (test code = Segs) 83.0 45.0-75.0 [place] 638190-12-06 09:53:13 Test Item Value Reference Range Interpretation Comments Bands (test code = 0.0 See_Comment [Automat ed message] The Bands) system which ge nerated this result transmit sheba reference range : <=11.0. The reference r christiano was not used to interpr et this result as edy l/abnormal. [facility] HospitalVtpxbuaLZHHBZUIFW9448-37-37 09:53:13 Test Item Value Reference Range Interpretation Comments Lymphocytes (test code = Lymphocytes) 10.0 20.0-40.0 [place] [address]-12-06 09:53:13 Test Item Value Reference Range Interpretation Comments Monocytes (test code = Monocytes) 6.0 2.0-12.0 [place] [address]-12-06 09:53:13 Test Item Value Reference Range Interpretation Comments Basophils (test code = 1.0 See_Comment [Aut omated message] The Basophils) system which ge nerated this result tra nsmitted reference range : <=1.0. The reference r christiano was not used to int erpret this result as normal/abnormal . [facility] HospitalCqdtyktKEJULYWNDU6003-76-57 09:53:13 Test Item Value Reference Range Interpretation Comments Atypical Lymphs (test code = Atypical 0.0 Lymphs) [place] 638190-12-06 09:53:13 Test Item Value Reference Range Interpretation Comments RBC Morph (test code = Normal (09/05/20 3:53 RBC Morph) AM) [place] [address]-12-06 09:53:13 Test Item Value Reference Range Interpretation Comments Plt Morph (test code = Normal (09/05/20 3:53 Plt Morph) AM) [facility]2020-12-06 09:53:13 Test Item Value Reference Range Interpretation Comments Magnesium Lvl (test code = Magnesium 2.2 1.8-2.4 Lvl) [place] 218490-12-06 09:53:13 Test Item Value Reference Range Interpretation Comments Phosphorus (test code = Phosphorus) 2.9 2.5-4.5 [place] [address]-12-06 09:53:13 Test Item Value Reference Range Interpretation Comments Glucose Lvl (test code = Glucose Lvl) 102 70-99 [place] 218490-12-06 09:53:13 Test Item Value Reference Range Interpretation Comments BUN (test code = BUN) 17 7-22 [place] 218490-12-06 09:53:13 Test Item Value Reference Range Interpretation Comments Creatinine Lvl (test code = Creatinine 1.51 0.50-1.40 Lvl) [place] 218490-12-06 09:53:13 Test Item Value Reference Range Interpretation Comments Sodium Lvl (test code = Sodium Lvl) 140 135-145 [place] [address]-12-06 09:53:13 Test Item Value Reference Range Interpretation Comments Potassium Lvl (test code = Potassium 3.5 3.5-5.1 Lvl) [place] 218490-12-06 09:53:13 Test Item Value Reference Range Interpretation Comments Chloride Lvl (test code = Chloride Lvl) 106 95-109 [place] 218490-12-06 09:53:13 Test Item Value Reference Range Interpretation Comments CO2 (test code = CO2) 29 24-32 [address]12-06 09:53:13 Test Item Value Reference Range Interpretation Comments Calcium Lvl (test code = Calcium Lvl) 8.3 8.5-10.5 [place] [address]-12-06 09:53:13 Test Item Value Reference Range Interpretation Comments AGAP (test code = AGAP) 8.5 10.0-20.0 [address]12-06 09:53:13 Test Item Value Reference Range Interpretation Comments eGFR (test code = eGFR) 33 [place] [address]-12-06 09:53:13 Test Item Value Reference Range Interpretation Comments WBC (test code = WBC) 8.7 3.7-10.4 [place] [address]-12-06 09:53:13 Test Item Value Reference Range Interpretation Comments RBC (test code = RBC) 3.96 4.20-5.40 [place] [address]-12-06 09:53:13 Test Item Value Reference Range Interpretation Comments Hgb (test code = Hgb) 10.7 12.0-16.0 [place] [address]-12-06 09:53:13 Test Item Value Reference Range Interpretation Comments Hct (test code = Hct) 32.8 36.0-48.0 [place] [address]-12-06 09:53:13 Test Item Value Reference Range Interpretation Comments MCV (test code = MCV) 83.0 80.0-98.0 [place] [address]-12-06 09:53:13 Test Item Value Reference Range Interpretation Comments MCH (test code = MCH) 26.9 pg 27.0-31.0 [place] [address]-12-06 09:53:13 Test Item Value Reference Range Interpretation Comments MCHC (test code = MCHC) 32.4 32.0-36.0 [place] [address]-12-06 09:53:13 Test Item Value Reference Range Interpretation Comments RDW (test code = RDW) 16.5 11.5-14.5 [place] [address]-12-06 09:53:13 Test Item Value Reference Range Interpretation Comments Platelet (test code = Platelet) 157 133-450 [place] [address]-12-06 09:53:13 Test Item Value Reference Range Interpretation Comments MPV (test code = MPV) 7.5 7.4-10.4 [place] 638190-12-06 09:53:13 Test Item Value Reference Range Interpretation Comments Neutrophils # (test code = Neutrophils 7.2 1.5-8.1 #) [place] 638190-12-06 09:53:13 Test Item Value Reference Range Interpretation Comments Lymphocytes # (test code = Lymphocytes 0.9 1.0-5.5 #) [place] [address]-12-06 09:53:13 Test Item Value Reference Range Interpretation Comments Monocytes # (test code 0.5 See_Comment [Aut omated message] The = Monocytes #) system which generated this result tra nsmitted reference range : <=0.8. The reference r christiano was not used to int erpret this result as normal/abnormal . [place] [address]-12-06 09:53:13 Test Item Value Reference Range Interpretation Comments Basophils # (test code 0.1 See_Comment [Aut omated message] The = Basophils #) system which generated this result tra nsmitted reference range : <=0.2. The reference r christiano was not used to int erpret this result as normal/abnormal . [facility] HospitalWyszlzvTHFXVQHTJH8017-91-79 09:53:13 Test Item Value Reference Range Interpretation Comments Segs (test code = Segs) 83.0 45.0-75.0 [place] [address]-12-06 09:53:13 Test Item Value Reference Range Interpretation Comments Bands (test code = 0.0 See_Comment [Automat ed message] The Bands) system which ge nerated this result transmit sheba reference range : <=11.0. The reference r christiano was not used to interpr et this result as edy l/abnormal. [place] [address]-12-06 09:53:13 Test Item Value Reference Range Interpretation Comments Lymphocytes (test code = Lymphocytes) 10.0 20.0-40.0 [place] [address]-12-06 09:53:13 Test Item Value Reference Range Interpretation Comments Monocytes (test code = Monocytes) 6.0 2.0-12.0 [place] [address]-12-06 09:53:13 Test Item Value Reference Range Interpretation Comments Basophils (test code = 1.0 See_Comment [Aut omated message] The Basophils) system which ge nerated this result tra nsmitted reference range : <=1.0. The reference r christiano was not used to int erpret this result as normal/abnormal . [place] 638190-12-06 09:53:13 Test Item Value Reference Range Interpretation Comments Atypical Lymphs (test code = Atypical 0.0 Lymphs) [place] [address]-12-06 09:53:13 Test Item Value Reference Range Interpretation Comments RBC Morph (test code = Normal (09/05/20 3:53 RBC Morph) AM) [place] [address]-12-06 09:53:13 Test Item Value Reference Range Interpretation Comments Plt Morph (test code = Normal (09/05/20 3:53 Plt Morph) AM) [place] 218490-12-06 09:53:13 Test Item Value Reference Range Interpretation Comments Magnesium Lvl (test code = Magnesium 2.2 1.8-2.4 Lvl) [place] 218490-12-06 09:53:13 Test Item Value Reference Range Interpretation Comments Phosphorus (test code = Phosphorus) 2.9 2.5-4.5 [place] 218490-12-06 09:53:13 Test Item Value Reference Range Interpretation Comments Glucose Lvl (test code = Glucose Lvl) 102 70-99 [place] 218490-12-06 09:53:13 Test Item Value Reference Range Interpretation Comments BUN (test code = BUN) 17 7-22 [place] [address]-12-06 09:53:13 Test Item Value Reference Range Interpretation Comments Creatinine Lvl (test code = Creatinine 1.51 0.50-1.40 Lvl) [place] 218490-12-06 09:53:13 Test Item Value Reference Range Interpretation Comments Sodium Lvl (test code = Sodium Lvl) 140 135-145 [place] [address]-12-06 09:53:13 Test Item Value Reference Range Interpretation Comments Potassium Lvl (test code = Potassium 3.5 3.5-5.1 Lvl) [place] 218490-12-06 09:53:13 Test Item Value Reference Range Interpretation Comments Chloride Lvl (test code = Chloride Lvl) 106 95-109 [place] [address]-12-06 09:53:13 Test Item Value Reference Range Interpretation Comments CO2 (test code = CO2) 29 24-32 [address]12-06 09:53:13 Test Item Value Reference Range Interpretation Comments Calcium Lvl (test code = Calcium Lvl) 8.3 8.5-10.5 [address]12-06 09:53:13 Test Item Value Reference Range Interpretation Comments AGAP (test code = AGAP) 8.5 10.0-20.0 [place] [address]-12-06 09:53:13 Test Item Value Reference Range Interpretation Comments eGFR (test code = eGFR) 33 [place] [address]-12-06 09:53:13 Test Item Value Reference Range Interpretation Comments WBC (test code = WBC) 8.7 3.7-10.4 [place] [address]-12-06 09:53:13 Test Item Value Reference Range Interpretation Comments RBC (test code = RBC) 3.96 4.20-5.40 [place] [address]-12-06 09:53:13 Test Item Value Reference Range Interpretation Comments Hgb (test code = Hgb) 10.7 12.0-16.0 [place] [address]-12-06 09:53:13 Test Item Value Reference Range Interpretation Comments Hct (test code = Hct) 32.8 36.0-48.0 [place] [address]-12-06 09:53:13 Test Item Value Reference Range Interpretation Comments MCV (test code = MCV) 83.0 80.0-98.0 [address]12-06 09:53:13 Test Item Value Reference Range Interpretation Comments MCH (test code = MCH) 26.9 pg 27.0-31.0 [place] [address]-12-06 09:53:13 Test Item Value Reference Range Interpretation Comments MCHC (test code = MCHC) 32.4 32.0-36.0 [address]12-06 09:53:13 Test Item Value Reference Range Interpretation Comments RDW (test code = RDW) 16.5 11.5-14.5 [place] [address]-12-06 09:53:13 Test Item Value Reference Range Interpretation Comments Platelet (test code = Platelet) 157 133-450 [place] [address]-12-06 09:53:13 Test Item Value Reference Range Interpretation Comments MPV (test code = MPV) 7.5 7.4-10.4 [place] [address]-12-06 09:53:13 Test Item Value Reference Range Interpretation Comments Neutrophils # (test code = Neutrophils 7.2 1.5-8.1 #) [place] [address]-12-06 09:53:13 Test Item Value Reference Range Interpretation Comments Lymphocytes # (test code = Lymphocytes 0.9 1.0-5.5 #) [place] [address]-12-06 09:53:13 Test Item Value Reference Range Interpretation Comments Monocytes # (test code 0.5 See_Comment [Aut omated message] The = Monocytes #) system which generated this result tra nsmitted reference range : <=0.8. The reference r christiano was not used to int erpret this result as normal/abnormal . [facility]FpvnbpwCGOLXBWSVH7475-60-63 09:53:13 Test Item Value Reference Range Interpretation Comments Basophils # (test code 0.1 See_Comment [Aut omated message] The = Basophils #) system which generated this result tra nsmitted reference range : <=0.2. The reference r christiano was not used to int erpret this result as normal/abnormal . [facility] HospitalSpfztqsGOJPYXCBGV4535-95-29 09:53:13 Test Item Value Reference Range Interpretation Comments Segs (test code = Segs) 83.0 45.0-75.0 [place] [address]-12-06 09:53:13 Test Item Value Reference Range Interpretation Comments Bands (test code = 0.0 See_Comment [Automat ed message] The Bands) system which ge nerated this result transmit sheba reference range : <=11.0. The reference r christiano was not used to interpr et this result as edy l/abnormal. [id number] 09:53:13 Test Item Value Reference Range Interpretation Comments Lymphocytes (test code = Lymphocytes) 10.0 20.0-40.0 [place] [address]-12-06 09:53:13 Test Item Value Reference Range Interpretation Comments Monocytes (test code = Monocytes) 6.0 2.0-12.0 [place] [address]-12-06 09:53:13 Test Item Value Reference Range Interpretation Comments Basophils (test code = 1.0 See_Comment [Aut omated message] The Basophils) system which ge nerated this result tra nsmitted reference range : <=1.0. The reference r christiano was not used to int erpret this result as normal/abnormal . [place] [address]-12-06 09:53:13 Test Item Value Reference Range Interpretation Comments Atypical Lymphs (test code = Atypical 0.0 Lymphs) [place] [address]-12-06 09:53:13 Test Item Value Reference Range Interpretation Comments RBC Morph (test code = Normal (09/05/20 3:53 RBC Morph) AM) [place] [address]-12-06 09:53:13 Test Item Value Reference Range Interpretation Comments Plt Morph (test code = Normal (09/05/20 3:53 Plt Morph) AM) [place] 218490-12-06 09:53:13 Test Item Value Reference Range Interpretation Comments Magnesium Lvl (test code = Magnesium 2.2 1.8-2.4 Lvl) [place] 218490-12-06 09:53:13 Test Item Value Reference Range Interpretation Comments Phosphorus (test code = Phosphorus) 2.9 2.5-4.5 [place] [address]-12-06 09:53:13 Test Item Value Reference Range Interpretation Comments Magnesium Lvl (test code = Magnesium 2.2 1.8-2.4 Lvl) [place] [address]-12-06 09:53:13 Test Item Value Reference Range Interpretation Comments Phosphorus (test code = Phosphorus) 2.9 2.5-4.5 [place] [address]-12-06 09:53:13 Test Item Value Reference Range Interpretation Comments Glucose Lvl (test code = Glucose Lvl) 102 70-99 [place] [address]-12-06 09:53:13 Test Item Value Reference Range Interpretation Comments BUN (test code = BUN) 17 7-22 [place] [address]-12-06 09:53:13 Test Item Value Reference Range Interpretation Comments Creatinine Lvl (test code = Creatinine 1.51 0.50-1.40 Lvl) [place] 218490-12-06 09:53:13 Test Item Value Reference Range Interpretation Comments Sodium Lvl (test code = Sodium Lvl) 140 135-[address]12-06 09:53:13 Test Item Value Reference Range Interpretation Comments Glucose Lvl (test code = Glucose Lvl) 102 70-[address]12-06 09:53:13 Test Item Value Reference Range Interpretation Comments Potassium Lvl (test code = Potassium 3.5 3.5-5.1 Lvl) [address]12-06 09:53:13 Test Item Value Reference Range Interpretation Comments Chloride Lvl (test code = Chloride Lvl) 106 95-109 [place] [address]-12-06 09:53:13 Test Item Value Reference Range Interpretation Comments CO2 (test code = CO2) 29 24-32 [address]12-06 09:53:13 Test Item Value Reference Range Interpretation Comments Calcium Lvl (test code = Calcium Lvl) 8.3 8.5-10.5 [place] [address]-12-06 09:53:13 Test Item Value Reference Range Interpretation Comments AGAP (test code = AGAP) 8.5 10.0-20.0 [place] 218490-12-06 09:53:13 Test Item Value Reference Range Interpretation Comments eGFR (test code = eGFR) 33 [place] [address]-12-06 09:53:13 Test Item Value Reference Range Interpretation Comments WBC (test code = WBC) 8.7 3.7-10.4 [place] [address]-12-06 09:53:13 Test Item Value Reference Range Interpretation Comments RBC (test code = RBC) 3.96 4.20-5.40 [place] [address]-12-06 09:53:13 Test Item Value Reference Range Interpretation Comments Hgb (test code = Hgb) 10.7 12.0-16.[address]12-06 09:53:13 Test Item Value Reference Range Interpretation Comments Hct (test code = Hct) 32.8 36.0-48.0 [address]12-06 09:53:13 Test Item Value Reference Range Interpretation Comments BUN (test code = BUN) 17 7-22 [place] [address]-12-06 09:53:13 Test Item Value Reference Range Interpretation Comments MCV (test code = MCV) 83.0 80.0-98.0 [place] [address]-12-06 09:53:13 Test Item Value Reference Range Interpretation Comments MCH (test code = MCH) 26.9 pg 27.0-31.0 [place] [address]-12-06 09:53:13 Test Item Value Reference Range Interpretation Comments MCHC (test code = MCHC) 32.4 32.0-36.0 [place] [address]-12-06 09:53:13 Test Item Value Reference Range Interpretation Comments RDW (test code = RDW) 16.5 11.5-14.5 [place] [address]-12-06 09:53:13 Test Item Value Reference Range Interpretation Comments Platelet (test code = Platelet) 157 133-450 [place] [address]-12-06 09:53:13 Test Item Value Reference Range Interpretation Comments MPV (test code = MPV) 7.5 7.4-10.4 [place] [address]-12-06 09:53:13 Test Item Value Reference Range Interpretation Comments Neutrophils # (test code = Neutrophils 7.2 1.5-8.1 #) [place] [address]-12-06 09:53:13 Test Item Value Reference Range Interpretation Comments Lymphocytes # (test code = Lymphocytes 0.9 1.0-5.5 #) [place] [address]-12-06 09:53:13 Test Item Value Reference Range Interpretation Comments Monocytes # (test code 0.5 See_Comment [Aut omated message] The = Monocytes #) system which generated this result tra nsmitted reference range : <=0.8. The reference r christiano was not used to int erpret this result as normal/abnormal . [place] [address]-12-06 09:53:13 Test Item Value Reference Range Interpretation Comments Basophils # (test code 0.1 See_Comment [Aut omated message] The = Basophils #) system which generated this result tra nsmitted reference range : <=0.2. The reference r christiano was not used to int erpret this result as normal/abnormal . [facility]2020-12-06 09:53:13 Test Item Value Reference Range Interpretation Comments Creatinine Lvl (test code = Creatinine 1.51 0.50-1.40 Lvl) [facility] Ho[id number] 09:53:13 Test Item Value Reference Range Interpretation Comments Segs (test code = Segs) 83.0 45.0-75.0 [place] [address]-12-06 09:53:13 Test Item Value Reference Range Interpretation Comments Bands (test code = 0.0 See_Comment [Automat ed message] The Bands) system which ge nerated this result transmit sheba reference range : <=11.0. The reference r christiano was not used to interpr et this result as edy l/abnormal. [place] [address]-12-06 09:53:13 Test Item Value Reference Range Interpretation Comments Lymphocytes (test code = Lymphocytes) 10.0 20.0-40.0 [place] [address]-12-06 09:53:13 Test Item Value Reference Range Interpretation Comments Monocytes (test code = Monocytes) 6.0 2.0-12.0 [place] [address]-12-06 09:53:13 Test Item Value Reference Range Interpretation Comments Basophils (test code = 1.0 See_Comment [Aut omated message] The Basophils) system which ge nerated this result tra nsmitted reference range : <=1.0. The reference r christiano was not used to int erpret this result as normal/abnormal . [facility] HospitalZgfstdlUXGJOZSNYN5312-12-25 09:53:13 Test Item Value Reference Range Interpretation Comments Atypical Lymphs (test code = Atypical 0.0 Lymphs) [place] [address]-12-06 09:53:13 Test Item Value Reference Range Interpretation Comments RBC Morph (test code = Normal (09/05/20 3:53 RBC Morph) AM) [place] [address]-12-06 09:53:13 Test Item Value Reference Range Interpretation Comments Plt Morph (test code = Normal (09/05/20 3:53 Plt Morph) AM) [facility]2020-12-06 09:53:13 Test Item Value Reference Range Interpretation Comments Sodium Lvl (test code = Sodium Lvl) 140 135-145 [place] [address]-12-06 09:53:13 Test Item Value Reference Range Interpretation Comments Potassium Lvl (test code = Potassium 3.5 3.5-5.1 Lvl) [place] [address]-12-06 09:53:13 Test Item Value Reference Range Interpretation Comments Chloride Lvl (test code = Chloride Lvl) 106 95-109 [place] [address]-12-06 09:53:13 Test Item Value Reference Range Interpretation Comments CO2 (test code = CO2) 29 24-32 [address]12-06 09:53:13 Test Item Value Reference Range Interpretation Comments Calcium Lvl (test code = Calcium Lvl) 8.3 8.5-10.[address]12-06 09:53:13 Test Item Value Reference Range Interpretation Comments AGAP (test code = AGAP) 8.5 10.0-20.0 [place] [address]-12-06 09:53:13 Test Item Value Reference Range Interpretation Comments eGFR (test code = eGFR) 33 [place] [address]-12-06 09:53:13 Test Item Value Reference Range Interpretation Comments WBC (test code = WBC) 8.7 3.7-10.4 [place] [address]-12-06 09:53:13 Test Item Value Reference Range Interpretation Comments RBC (test code = RBC) 3.96 4.20-5.40 [place] [address]-12-06 09:53:13 Test Item Value Reference Range Interpretation Comments Hgb (test code = Hgb) 10.7 12.0-16.0 [place] [address]-12-06 09:53:13 Test Item Value Reference Range Interpretation Comments Hct (test code = Hct) 32.8 36.0-48.0 [address]12-06 09:53:13 Test Item Value Reference Range Interpretation Comments MCV (test code = MCV) 83.0 80.0-98.0 [address]12-06 09:53:13 Test Item Value Reference Range Interpretation Comments MCH (test code = MCH) 26.9 pg 27.0-31.0 [place] [address]-12-06 09:53:13 Test Item Value Reference Range Interpretation Comments MCHC (test code = MCHC) 32.4 32.0-36.0 [place] 638190-12-06 09:53:13 Test Item Value Reference Range Interpretation Comments RDW (test code = RDW) 16.5 11.5-14.5 [place] [address]-12-06 09:53:13 Test Item Value Reference Range Interpretation Comments Platelet (test code = Platelet) 157 133-450 [place] 638190-12-06 09:53:13 Test Item Value Reference Range Interpretation Comments MPV (test code = MPV) 7.5 7.4-10.4 [place] [address]-12-06 09:53:13 Test Item Value Reference Range Interpretation Comments Neutrophils # (test code = Neutrophils 7.2 1.5-8.1 #) [place] [address]-12-06 09:53:13 Test Item Value Reference Range Interpretation Comments Lymphocytes # (test code = Lymphocytes 0.9 1.0-5.5 #) [place] [address]-12-06 09:53:13 Test Item Value Reference Range Interpretation Comments Monocytes # (test code 0.5 See_Comment [Aut omated message] The = Monocytes #) system which generated this result tra nsmitted reference range : <=0.8. The reference r christiano was not used to int erpret this result as normal/abnormal . [place] [address]-12-06 09:53:13 Test Item Value Reference Range Interpretation Comments Basophils # (test code 0.1 See_Comment [Aut omated message] The = Basophils #) system which generated this result tra nsmitted reference range : <=0.2. The reference r christiano was not used to int erpret this result as normal/abnormal . [place] [address]-12-06 09:53:13 Test Item Value Reference Range Interpretation Comments Segs (test code = Segs) 83.0 45.0-75.0 [place] [address]-12-06 09:53:13 Test Item Value Reference Range Interpretation Comments Bands (test code = 0.0 See_Comment [Automat ed message] The Bands) system which ge nerated this result transmit sheba reference range : <=11.0. The reference r christiano was not used to interpr et this result as edy l/abnormal. [place] 638190-12-06 09:53:13 Test Item Value Reference Range Interpretation Comments Lymphocytes (test code = Lymphocytes) 10.0 20.0-40.0 [place] [address]-12-06 09:53:13 Test Item Value Reference Range Interpretation Comments Monocytes (test code = Monocytes) 6.0 2.0-12.0 [place] [address]-12-06 09:53:13 Test Item Value Reference Range Interpretation Comments Basophils (test code = 1.0 See_Comment [Aut omated message] The Basophils) system which ge nerated this result tra nsmitted reference range : <=1.0. The reference r christiano was not used to int erpret this result as normal/abnormal . [place] 638190-12-06 09:53:13 Test Item Value Reference Range Interpretation Comments Atypical Lymphs (test code = Atypical 0.0 Lymphs) [place] 638190-12-06 09:53:13 Test Item Value Reference Range Interpretation Comments RBC Morph (test code = Normal (09/05/20 3:53 RBC Morph) AM) [place] [address]-12-06 09:53:13 Test Item Value Reference Range Interpretation Comments Plt Morph (test code = Normal (09/05/20 3:53 Plt Morph) AM) [facility]2020-12-06 09:53:13 Test Item Value Reference Range Interpretation Comments Magnesium Lvl (test code = Magnesium 2.2 1.8-2.4 Lvl) [place] 218490-12-06 09:53:13 Test Item Value Reference Range Interpretation Comments Phosphorus (test code = Phosphorus) 2.9 2.5-4.5 [place] [address]-12-06 09:53:13 Test Item Value Reference Range Interpretation Comments Glucose Lvl (test code = Glucose Lvl) 102 70-99 [place] 218490-12-06 09:53:13 Test Item Value Reference Range Interpretation Comments BUN (test code = BUN) 17 7-22 [place] [address]-12-06 09:53:13 Test Item Value Reference Range Interpretation Comments Creatinine Lvl (test code = Creatinine 1.51 0.50-1.40 Lvl) [place] [address]-12-06 09:53:13 Test Item Value Reference Range Interpretation Comments Sodium Lvl (test code = Sodium Lvl) 140 135-[address]12-06 09:53:13 Test Item Value Reference Range Interpretation Comments Potassium Lvl (test code = Potassium 3.5 3.5-5.1 Lvl) [address]12-06 09:53:13 Test Item Value Reference Range Interpretation Comments Chloride Lvl (test code = Chloride Lvl) 106 95-109 [address]12-06 09:53:13 Test Item Value Reference Range Interpretation Comments CO2 (test code = CO2) 29 24-32 [address]12-06 09:53:13 Test Item Value Reference Range Interpretation Comments Calcium Lvl (test code = Calcium Lvl) 8.3 8.5-10.[address]12-06 09:53:13 Test Item Value Reference Range Interpretation Comments AGAP (test code = AGAP) 8.5 10.0-20.0 [place] [address]-12-06 09:53:13 Test Item Value Reference Range Interpretation Comments eGFR (test code = eGFR) 33 [place] [address]-12-06 09:53:13 Test Item Value Reference Range Interpretation Comments WBC (test code = WBC) 8.7 3.7-10.4 [place] [address]-12-06 09:53:13 Test Item Value Reference Range Interpretation Comments RBC (test code = RBC) 3.96 4.20-5.40 [place] [address]-12-06 09:53:13 Test Item Value Reference Range Interpretation Comments Hgb (test code = Hgb) 10.7 12.0-16.[address]12-06 09:53:13 Test Item Value Reference Range Interpretation Comments Hct (test code = Hct) 32.8 36.0-48.0 [address]12-06 09:53:13 Test Item Value Reference Range Interpretation Comments MCV (test code = MCV) 83.0 80.0-98.0 [address]12-06 09:53:13 Test Item Value Reference Range Interpretation Comments MCH (test code = MCH) 26.9 pg 27.0-31.0 [facility]BjjzehlZBDWKGBMHX4112-43-01 09:53:13 Test Item Value Reference Range Interpretation Comments MCHC (test code = MCHC) 32.4 32.0-36.0 [facility] HospitalOeanynoSGDASBHGEQ1473-72-28 09:53:13 Test Item Value Reference Range Interpretation Comments RDW (test code = RDW) 16.5 11.5-14.5 [place] [address]-12-06 09:53:13 Test Item Value Reference Range Interpretation Comments Platelet (test code = Platelet) 157 133-450 [place] 638190-12-06 09:53:13 Test Item Value Reference Range Interpretation Comments MPV (test code = MPV) 7.5 7.4-10.4 [place] 638190-12-06 09:53:13 Test Item Value Reference Range Interpretation Comments Neutrophils # (test code = Neutrophils 7.2 1.5-8.1 #) [facility] HospitalQqcwrqgFPQELTZZMZ8416-29-98 09:53:13 Test Item Value Reference Range Interpretation Comments Lymphocytes # (test code = Lymphocytes 0.9 1.0-5.5 #) [facility] HospitalHcfcaxlHNZESCVEWT4304-68-17 09:53:13 Test Item Value Reference Range Interpretation Comments Monocytes # (test code 0.5 See_Comment [Aut omated message] The = Monocytes #) system which generated this result tra nsmitted reference range : <=0.8. The reference r christiano was not used to int erpret this result as normal/abnormal . [facility] HospitalQtkyeomZFUGYGTOFU8550-93-23 09:53:13 Test Item Value Reference Range Interpretation Comments Basophils # (test code 0.1 See_Comment [Aut omated message] The = Basophils #) system which generated this result tra nsmitted reference range : <=0.2. The reference r christiano was not used to int erpret this result as normal/abnormal . [place] 638190-12-06 09:53:13 Test Item Value Reference Range Interpretation Comments Segs (test code = Segs) 83.0 45.0-75.0 [place] [address]-12-06 09:53:13 Test Item Value Reference Range Interpretation Comments Bands (test code = 0.0 See_Comment [Automat ed message] The Bands) system which ge nerated this result transmit [place]ba reference range : <=11.0. The reference r christiano was not used to interpr et this result as edy l/abnormal. [place] [address]-12-06 09:53:13 Test Item Value Reference Range Interpretation Comments Lymphocytes (test code = Lymphocytes) 10.0 20.0-40.0 [place] [address]-12-06 09:53:13 Test Item Value Reference Range Interpretation Comments Monocytes (test code = Monocytes) 6.0 2.0-12.0 [place] [address]-12-06 09:53:13 Test Item Value Reference Range Interpretation Comments Basophils (test code = 1.0 See_Comment [Aut omated message] The Basophils) system which ge nerated this result tra nsmitted reference range : <=1.0. The reference r christiano was not used to int erpret this result as normal/abnormal . [place] [address]-12-06 09:53:13 Test Item Value Reference Range Interpretation Comments Atypical Lymphs (test code = Atypical 0.0 Lymphs) [place] [address]-12-06 09:53:13 Test Item Value Reference Range Interpretation Comments RBC Morph (test code = Normal (09/05/20 3:53 RBC Morph) AM) [place] [address]-12-06 09:53:13 Test Item Value Reference Range Interpretation Comments Plt Morph (test code = Normal (09/05/20 3:53 Plt Morph) AM) [place] 218490-12-06 09:53:13 Test Item Value Reference Range Interpretation Comments Magnesium Lvl (test code = Magnesium 2.2 1.8-2.4 Lvl) [place] [address]-12-06 09:53:13 Test Item Value Reference Range Interpretation Comments Phosphorus (test code = Phosphorus) 2.9 2.5-4.5 [place] [address]-12-06 09:53:13 Test Item Value Reference Range Interpretation Comments Glucose Lvl (test code = Glucose Lvl) 102 70-99 [place] [address]-12-06 09:53:13 Test Item Value Reference Range Interpretation Comments BUN (test code = BUN) 17 7-22 [place] [address]-12-06 09:53:13 Test Item Value Reference Range Interpretation Comments Creatinine Lvl (test code = Creatinine 1.51 0.50-1.40 Lvl) [place] [address]-12-06 09:53:13 Test Item Value Reference Range Interpretation Comments Sodium Lvl (test code = Sodium Lvl) 140 135-145 [place] [address]-12-06 09:53:13 Test Item Value Reference Range Interpretation Comments Potassium Lvl (test code = Potassium 3.5 3.5-5.1 Lvl) [place] [address]-12-06 09:53:13 Test Item Value Reference Range Interpretation Comments Chloride Lvl (test code = Chloride Lvl) 106 95-109 [place] [address]-12-06 09:53:13 Test Item Value Reference Range Interpretation Comments CO2 (test code = CO2) 29 24-32 [address]12-06 09:53:13 Test Item Value Reference Range Interpretation Comments Calcium Lvl (test code = Calcium Lvl) 8.3 8.5-10.5 [place] 218490-12-06 09:53:13 Test Item Value Reference Range Interpretation Comments AGAP (test code = AGAP) 8.5 10.0-20.0 [place] [address]-12-06 09:53:13 Test Item Value Reference Range Interpretation Comments eGFR (test code = eGFR) 33 [place] [address]-12-06 09:53:13 Test Item Value Reference Range Interpretation Comments WBC (test code = WBC) 8.7 3.7-10.4 [place] [address]-12-06 09:53:13 Test Item Value Reference Range Interpretation Comments RBC (test code = RBC) 3.96 4.20-5.40 [place] [address]-12-06 09:53:13 Test Item Value Reference Range Interpretation Comments Hgb (test code = Hgb) 10.7 12.0-16.0 [place] [address]-12-06 09:53:13 Test Item Value Reference Range Interpretation Comments Hct (test code = Hct) 32.8 36.0-48.0 [address]12-06 09:53:13 Test Item Value Reference Range Interpretation Comments MCV (test code = MCV) 83.0 80.0-98.0 [place] [address]-12-06 09:53:13 Test Item Value Reference Range Interpretation Comments MCH (test code = MCH) 26.9 pg 27.0-31.0 [place] [address]-12-06 09:53:13 Test Item Value Reference Range Interpretation Comments MCHC (test code = MCHC) 32.4 32.0-36.0 [place] [address]-12-06 09:53:13 Test Item Value Reference Range Interpretation Comments RDW (test code = RDW) 16.5 11.5-14.5 [place] [address]-12-06 09:53:13 Test Item Value Reference Range Interpretation Comments Platelet (test code = Platelet) 157 133-450 [place] [address]-12-06 09:53:13 Test Item Value Reference Range Interpretation Comments MPV (test code = MPV) 7.5 7.4-10.4 [place] [address]-12-06 09:53:13 Test Item Value Reference Range Interpretation Comments Neutrophils # (test code = Neutrophils 7.2 1.5-8.1 #) [place] [address]-12-06 09:53:13 Test Item Value Reference Range Interpretation Comments Lymphocytes # (test code = Lymphocytes 0.9 1.0-5.5 #) [place] [address]-12-06 09:53:13 Test Item Value Reference Range Interpretation Comments Monocytes # (test code 0.5 See_Comment [Aut omated message] The = Monocytes #) system which generated this result tra nsmitted reference range : <=0.8. The reference r christiano was not used to int erpret this result as normal/abnormal . [place] [address]-12-06 09:53:13 Test Item Value Reference Range Interpretation Comments Basophils # (test code 0.1 See_Comment [Aut omated message] The = Basophils #) system which generated this result tra nsmitted reference range : <=0.2. The reference r christiano was not used to int erpret this result as normal/abnormal . [place] [address]-12-06 09:53:13 Test Item Value Reference Range Interpretation Comments Segs (test code = Segs) 83.0 45.0-75.0 [place] [address]-12-06 09:53:13 Test Item Value Reference Range Interpretation Comments Bands (test code = 0.0 See_Comment [Automat ed message] The Bands) system which ge nerated this result transmit [place] reference range : <=11.0. The reference r christiano was not used to interpr et this result as edy l/abnormal. [facility]HiecjfpGWKLTRKXFU4676-84-76 09:53:13 Test Item Value Reference Range Interpretation Comments Lymphocytes (test code = Lymphocytes) 10.0 20.0-40.0 [place] [address]-12-06 09:53:13 Test Item Value Reference Range Interpretation Comments Monocytes (test code = Monocytes) 6.0 2.0-12.0 [place] [address]-12-06 09:53:13 Test Item Value Reference Range Interpretation Comments Basophils (test code = 1.0 See_Comment [Aut omated message] The Basophils) system which ge nerated this result tra nsmitted reference range : <=1.0. The reference r christiano was not used to int erpret this result as normal/abnormal . [facility] HospitalHspfjxhTWFDIJMHMA6458-59-75 09:53:13 Test Item Value Reference Range Interpretation Comments Atypical Lymphs (test code = Atypical 0.0 Lymphs) [place] [address]-12-06 09:53:13 Test Item Value Reference Range Interpretation Comments RBC Morph (test code = Normal (09/05/20 3:53 RBC Morph) AM) [place] [address]-12-06 09:53:13 Test Item Value Reference Range Interpretation Comments Plt Morph (test code = Normal (09/05/20 3:53 Plt Morph) AM) [place] 218490-12-06 09:53:13 Test Item Value Reference Range Interpretation Comments Magnesium Lvl (test code = Magnesium 2.2 1.8-2.4 Lvl) [place] 218490-12-06 09:53:13 Test Item Value Reference Range Interpretation Comments Phosphorus (test code = Phosphorus) 2.9 2.5-4.5 [place] [address]-12-06 09:53:13 Test Item Value Reference Range Interpretation Comments Glucose Lvl (test code = Glucose Lvl) 102 70-99 [place] [address]-12-06 09:53:13 Test Item Value Reference Range Interpretation Comments BUN (test code = BUN) 17 7-22 [place] [address]-12-06 09:53:13 Test Item Value Reference Range Interpretation Comments Creatinine Lvl (test code = Creatinine 1.51 0.50-1.40 Lvl) [address]12-06 09:53:13 Test Item Value Reference Range Interpretation Comments Sodium Lvl (test code = Sodium Lvl) 140 135-145 [address]12-06 09:53:13 Test Item Value Reference Range Interpretation Comments Potassium Lvl (test code = Potassium 3.5 3.5-5.1 Lvl) [address]12-06 09:53:13 Test Item Value Reference Range Interpretation Comments Chloride Lvl (test code = Chloride Lvl) 106 95-109 [place] [address]-12-06 09:53:13 Test Item Value Reference Range Interpretation Comments CO2 (test code = CO2) 29 24-[address]12-06 09:53:13 Test Item Value Reference Range Interpretation Comments Calcium Lvl (test code = Calcium Lvl) 8.3 8.5-10.5 [place] [address]-12-06 09:53:13 Test Item Value Reference Range Interpretation Comments AGAP (test code = AGAP) 8.5 10.0-20.0 [place] [address]-12-06 09:53:13 Test Item Value Reference Range Interpretation Comments eGFR (test code = eGFR) 33 [place] [address]-12-06 09:53:13 Test Item Value Reference Range Interpretation Comments WBC (test code = WBC) 8.7 3.7-10.4 [place] [address]-12-06 09:53:13 Test Item Value Reference Range Interpretation Comments RBC (test code = RBC) 3.96 4.20-5.40 [place] [address]-12-06 09:53:13 Test Item Value Reference Range Interpretation Comments Hgb (test code = Hgb) 10.7 12.0-16.[address]12-06 09:53:13 Test Item Value Reference Range Interpretation Comments Hct (test code = Hct) 32.8 36.0-48.0 [place] [address]-12-06 09:53:13 Test Item Value Reference Range Interpretation Comments MCV (test code = MCV) 83.0 80.0-98.0 [place] [address]-12-06 09:53:13 Test Item Value Reference Range Interpretation Comments MCH (test code = MCH) 26.9 pg 27.0-31.0 [place] [address]-12-06 09:53:13 Test Item Value Reference Range Interpretation Comments MCHC (test code = MCHC) 32.4 32.0-36.0 [place] [address]-12-06 09:53:13 Test Item Value Reference Range Interpretation Comments RDW (test code = RDW) 16.5 11.5-14.5 [place] [address]-12-06 09:53:13 Test Item Value Reference Range Interpretation Comments Platelet (test code = Platelet) 157 133-450 [place] [address]-12-06 09:53:13 Test Item Value Reference Range Interpretation Comments MPV (test code = MPV) 7.5 7.4-10.4 [place] [address]-12-06 09:53:13 Test Item Value Reference Range Interpretation Comments Neutrophils # (test code = Neutrophils 7.2 1.5-8.1 #) [place] [address]-12-06 09:53:13 Test Item Value Reference Range Interpretation Comments Lymphocytes # (test code = Lymphocytes 0.9 1.0-5.5 #) [place] 638190-12-06 09:53:13 Test Item Value Reference Range Interpretation Comments Monocytes # (test code 0.5 See_Comment [Aut omated message] The = Monocytes #) system which generated this result tra nsmitted reference range : <=0.8. The reference r christiano was not used to int erpret this result as normal/abnormal . [place] [address]-12-06 09:53:13 Test Item Value Reference Range Interpretation Comments Basophils # (test code 0.1 See_Comment [Aut omated message] The = Basophils #) system which generated this result tra nsmitted reference range : <=0.2. The reference r christiano was not used to int erpret this result as normal/abnormal . [place] [address]-12-06 09:53:13 Test Item Value Reference Range Interpretation Comments Segs (test code = Segs) 83.0 45.0-75.0 [place] [address]-12-06 09:53:13 Test Item Value Reference Range Interpretation Comments Bands (test code = 0.0 See_Comment [Automat ed message] The Bands) system which ge nerated this result transmit sheba reference range : <=11.0. The reference r christiano was not used to interpr et this result as edy l/abnormal. [place] 638190-12-06 09:53:13 Test Item Value Reference Range Interpretation Comments Lymphocytes (test code = Lymphocytes) 10.0 20.0-40.0 [place] [address]-12-06 09:53:13 Test Item Value Reference Range Interpretation Comments Monocytes (test code = Monocytes) 6.0 2.0-12.0 [place] [address]-12-06 09:53:13 Test Item Value Reference Range Interpretation Comments Basophils (test code = 1.0 See_Comment [Aut omated message] The Basophils) system which ge nerated this result tra nsmitted reference range : <=1.0. The reference r christiano was not used to int erpret this result as normal/abnormal . [place] 638190-12-06 09:53:13 Test Item Value Reference Range Interpretation Comments Atypical Lymphs (test code = Atypical 0.0 Lymphs) [place] 638190-12-06 09:53:13 Test Item Value Reference Range Interpretation Comments RBC Morph (test code = Normal (09/05/20 3:53 RBC Morph) AM) [place] [address]-12-06 09:53:13 Test Item Value Reference Range Interpretation Comments Plt Morph (test code = Normal (09/05/20 3:53 Plt Morph) AM) [place] 218490-12-06 09:53:13 Test Item Value Reference Range Interpretation Comments Magnesium Lvl (test code = Magnesium 2.2 1.8-2.4 Lvl) [place] 218490-12-06 09:53:13 Test Item Value Reference Range Interpretation Comments Phosphorus (test code = Phosphorus) 2.9 2.5-4.5 [place] 218490-12-06 09:53:13 Test Item Value Reference Range Interpretation Comments Glucose Lvl (test code = Glucose Lvl) 102 70-99 [place] [address]-12-06 09:53:13 Test Item Value Reference Range Interpretation Comments BUN (test code = BUN) 17 7-22 [place] [address]-12-06 09:53:13 Test Item Value Reference Range Interpretation Comments Creatinine Lvl (test code = Creatinine 1.51 0.50-1.40 Lvl) [place] [address]-12-06 09:53:13 Test Item Value Reference Range Interpretation Comments Sodium Lvl (test code = Sodium Lvl) 140 135-145 [address]12-06 09:53:13 Test Item Value Reference Range Interpretation Comments Potassium Lvl (test code = Potassium 3.5 3.5-5.1 Lvl) [place] [address]-12-06 09:53:13 Test Item Value Reference Range Interpretation Comments Chloride Lvl (test code = Chloride Lvl) 106 95-109 [place] [address]-12-06 09:53:13 Test Item Value Reference Range Interpretation Comments CO2 (test code = CO2) 29 24-32 [place] [address]-12-06 09:53:13 Test Item Value Reference Range Interpretation Comments Calcium Lvl (test code = Calcium Lvl) 8.3 8.5-10.5 [place] [address]-12-06 09:53:13 Test Item Value Reference Range Interpretation Comments AGAP (test code = AGAP) 8.5 10.0-20.0 [place] [address]-12-06 09:53:13 Test Item Value Reference Range Interpretation Comments eGFR (test code = eGFR) 33 [place] [address]-12-06 09:53:13 Test Item Value Reference Range Interpretation Comments WBC (test code = WBC) 8.7 3.7-10.[address]12-06 09:53:13 Test Item Value Reference Range Interpretation Comments RBC (test code = RBC) 3.96 4.20-5.40 [place] [address]-12-06 09:53:13 Test Item Value Reference Range Interpretation Comments Hgb (test code = Hgb) 10.7 12.0-16.0 [place] [address]-12-06 09:53:13 Test Item Value Reference Range Interpretation Comments Hct (test code = Hct) 32.8 36.0-48.0 [place] [address]-12-06 09:53:13 Test Item Value Reference Range Interpretation Comments MCV (test code = MCV) 83.0 80.0-98.0 [place] [address]-12-06 09:53:13 Test Item Value Reference Range Interpretation Comments MCH (test code = MCH) 26.9 pg 27.0-31.0 [place] [address]-12-06 09:53:13 Test Item Value Reference Range Interpretation Comments MCHC (test code = MCHC) 32.4 32.0-36.0 [place] [address]-12-06 09:53:13 Test Item Value Reference Range Interpretation Comments RDW (test code = RDW) 16.5 11.5-14.5 [place] [address]-12-06 09:53:13 Test Item Value Reference Range Interpretation Comments Platelet (test code = Platelet) 157 133-450 [place] [address]-12-06 09:53:13 Test Item Value Reference Range Interpretation Comments MPV (test code = MPV) 7.5 7.4-10.4 [place] [address]-12-06 09:53:13 Test Item Value Reference Range Interpretation Comments Neutrophils # (test code = Neutrophils 7.2 1.5-8.1 #) [place] [address]-12-06 09:53:13 Test Item Value Reference Range Interpretation Comments Lymphocytes # (test code = Lymphocytes 0.9 1.0-5.5 #) [place] [address]-12-06 09:53:13 Test Item Value Reference Range Interpretation Comments Monocytes # (test code 0.5 See_Comment [Aut omated message] The = Monocytes #) system which generated this result tra nsmitted reference range : <=0.8. The reference r christiano was not used to int erpret this result as normal/abnormal . [place] [address]-12-06 09:53:13 Test Item Value Reference Range Interpretation Comments Basophils # (test code 0.1 See_Comment [Aut omated message] The = Basophils #) system which generated this result tra nsmitted reference range : <=0.2. The reference r christiano was not used to int erpret this result as normal/abnormal . [facility]58 09:53:13 Test Item Value Reference Range Interpretation Comments Segs (test code = Segs) 83.0 45.0-75.0 [facility]NwcyeysPZQCLOKIZA3177-73-40 09:53:13 Test Item Value Reference Range Interpretation Comments Bands (test code = 0.0 See_Comment [Automat ed message] The Bands) system which ge nerated this result transmit sheba reference range : <=11.0. The reference r christiano was not used to interpr et this result as dey l/abnormal. [facility]SfxnglxYKNQRJPUAQ0589-21-90 09:53:13 Test Item Value Reference Range Interpretation Comments Lymphocytes (test code = Lymphocytes) 10.0 20.0-40.0 [facility] HospitalCbxowqaREMVQDLSOE2070-25-99 09:53:13 Test Item Value Reference Range Interpretation Comments Monocytes (test code = Monocytes) 6.0 2.0-12.0 [facility] HospitalRlrpcmjACYCXUGUHU2025-79-69 09:53:13 Test Item Value Reference Range Interpretation Comments Basophils (test code = 1.0 See_Comment [Aut omated message] The Basophils) system which ge nerated this result tra nsmitted reference range : <=1.0. The reference r christiano was not used to int erpret this result as normal/abnormal . [facility] HospitalGhthegoSXAAAIAYXP7128-06-18 09:53:13 Test Item Value Reference Range Interpretation Comments Atypical Lymphs (test code = Atypical 0.0 Lymphs) [place] [address]-12-06 09:53:13 Test Item Value Reference Range Interpretation Comments RBC Morph (test code = Normal (09/05/20 3:53 RBC Morph) AM) [place] [address]-12-06 09:53:13 Test Item Value Reference Range Interpretation Comments Plt Morph (test code = Normal (09/05/20 3:53 Plt Morph) AM) [facility]2020-12-06 09:53:13 Test Item Value Reference Range Interpretation Comments Magnesium Lvl (test code = Magnesium 2.2 1.8-2.4 Lvl) [facility]2020-12-06 09:53:13 Test Item Value Reference Range Interpretation Comments Phosphorus (test code = Phosphorus) 2.9 2.5-4.[address]12-06 09:53:13 Test Item Value Reference Range Interpretation Comments Glucose Lvl (test code = Glucose Lvl) 102 70-[address]12-06 09:53:13 Test Item Value Reference Range Interpretation Comments BUN (test code = BUN) 17 7-[address]12-06 09:53:13 Test Item Value Reference Range Interpretation Comments Creatinine Lvl (test code = Creatinine 1.51 0.50-1.40 Lvl) [address]12-06 09:53:13 Test Item Value Reference Range Interpretation Comments Sodium Lvl (test code = Sodium Lvl) 140 135-[address]12-06 09:53:13 Test Item Value Reference Range Interpretation Comments Potassium Lvl (test code = Potassium 3.5 3.5-5.1 Lvl) [address]12-06 09:53:13 Test Item Value Reference Range Interpretation Comments Chloride Lvl (test code = Chloride Lvl) 106 95-109 [place] [address]-12-06 09:53:13 Test Item Value Reference Range Interpretation Comments CO2 (test code = CO2) 29 24-32 [place] [address]-12-06 09:53:13 Test Item Value Reference Range Interpretation Comments Calcium Lvl (test code = Calcium Lvl) 8.3 8.5-10.5 [place] [address]-12-06 09:53:13 Test Item Value Reference Range Interpretation Comments AGAP (test code = AGAP) 8.5 10.0-20.0 [place] [address]-12-06 09:53:13 Test Item Value Reference Range Interpretation Comments eGFR (test code = eGFR) [address]12-06 09:53:13 Test Item Value Reference Range Interpretation Comments WBC (test code = WBC) 8.7 3.7-10.[address]12-06 09:53:13 Test Item Value Reference Range Interpretation Comments RBC (test code = RBC) 3.96 4.20-5.[address]12-06 09:53:13 Test Item Value Reference Range Interpretation Comments Hgb (test code = Hgb) 10.7 12.0-16.0 [place] [address]-12-06 09:53:13 Test Item Value Reference Range Interpretation Comments Hct (test code = Hct) 32.8 36.0-48.0 [place] 638190-12-06 09:53:13 Test Item Value Reference Range Interpretation Comments MCV (test code = MCV) 83.0 80.0-98.0 [place] 638190-12-06 09:53:13 Test Item Value Reference Range Interpretation Comments MCH (test code = MCH) 26.9 pg 27.0-31.0 [place] 638190-12-06 09:53:13 Test Item Value Reference Range Interpretation Comments MCHC (test code = MCHC) 32.4 32.0-36.0 [place] 638190-12-06 09:53:13 Test Item Value Reference Range Interpretation Comments RDW (test code = RDW) 16.5 11.5-14.5 [place] [address]-12-06 09:53:13 Test Item Value Reference Range Interpretation Comments Platelet (test code = Platelet) 157 133-450 [place] [address]-12-06 09:53:13 Test Item Value Reference Range Interpretation Comments MPV (test code = MPV) 7.5 7.4-10.4 [place] 638190-12-06 09:53:13 Test Item Value Reference Range Interpretation Comments Neutrophils # (test code = Neutrophils 7.2 1.5-8.1 #) [facility] HospitalFfsyiqzEEANKMJGEC5667-76-56 09:53:13 Test Item Value Reference Range Interpretation Comments Lymphocytes # (test code = Lymphocytes 0.9 1.0-5.5 #) [place] [address]-12-06 09:53:13 Test Item Value Reference Range Interpretation Comments Monocytes # (test code 0.5 See_Comment [Aut omated message] The = Monocytes #) system which generated this result tra nsmitted reference range : <=0.8. The reference r christiano was not used to int erpret this result as normal/abnormal . [place] 638190-12-06 09:53:13 Test Item Value Reference Range Interpretation Comments Basophils # (test code 0.1 See_Comment [Aut omated message] The = Basophils #) system which generated this result tra nsmitted reference range : <=0.2. The reference r christiano was not used to int erpret this result as normal/abnormal . [facility] HospitalAsscekaIFHXVEWPBH7846-09-97 09:53:13 Test Item Value Reference Range Interpretation Comments Segs (test code = Segs) 83.0 45.0-75.0 [place] [address]-12-06 09:53:13 Test Item Value Reference Range Interpretation Comments Bands (test code = 0.0 See_Comment [Automat ed message] The Bands) system which ge nerated this result transmit sheba reference range : <=11.0. The reference r christiano was not used to interpr et this result as edy l/abnormal. [facility] HospitalNseszzqFDLRLGEYJF7418-51-00 09:53:13 Test Item Value Reference Range Interpretation Comments Lymphocytes (test code = Lymphocytes) 10.0 20.0-40.0 [place] 638190-12-06 09:53:13 Test Item Value Reference Range Interpretation Comments Monocytes (test code = Monocytes) 6.0 2.0-12.0 [place] [address]-12-06 09:53:13 Test Item Value Reference Range Interpretation Comments Basophils (test code = 1.0 See_Comment [Aut omated message] The Basophils) system which ge nerated this result tra nsmitted reference range : <=1.0. The reference r christiano was not used to int erpret this result as normal/abnormal . [facility] HospitalVbentseAIKUVVZLLO1017-99-46 09:53:13 Test Item Value Reference Range Interpretation Comments Atypical Lymphs (test code = Atypical 0.0 Lymphs) [facility] HospitalBmhqhjdCNQXVBOBEN4965-36-74 09:53:13 Test Item Value Reference Range Interpretation Comments RBC Morph (test code = Normal (09/05/20 3:53 RBC Morph) AM) [place] [address]-12-06 09:53:13 Test Item Value Reference Range Interpretation Comments Plt Morph (test code = Normal (09/05/20 3:53 Plt Morph) AM) [facility]2020-12-06 09:53:13 Test Item Value Reference Range Interpretation Comments Magnesium Lvl (test code = Magnesium 2.2 1.8-2.4 Lvl) [facility]2020-12-06 09:53:13 Test Item Value Reference Range Interpretation Comments Phosphorus (test code = Phosphorus) 2.9 2.5-4.5 [place] [address]-12-06 09:53:13 Test Item Value Reference Range Interpretation Comments Glucose Lvl (test code = Glucose Lvl) 102 70-99 [place] [address]-12-06 09:53:13 Test Item Value Reference Range Interpretation Comments BUN (test code = BUN) 17 7-22 [place] [address]-12-06 09:53:13 Test Item Value Reference Range Interpretation Comments Creatinine Lvl (test code = Creatinine 1.51 0.50-1.40 Lvl) [place] [address]-12-06 09:53:13 Test Item Value Reference Range Interpretation Comments Sodium Lvl (test code = Sodium Lvl) 140 135-145 [place] [address]-12-06 09:53:13 Test Item Value Reference Range Interpretation Comments Potassium Lvl (test code = Potassium 3.5 3.5-5.1 Lvl) [place] 218490-12-06 09:53:13 Test Item Value Reference Range Interpretation Comments Chloride Lvl (test code = Chloride Lvl) 106 95-109 [place] 218490-12-06 09:53:13 Test Item Value Reference Range Interpretation Comments CO2 (test code = CO2) 29 24-32 [place] [address]-12-06 09:53:13 Test Item Value Reference Range Interpretation Comments Calcium Lvl (test code = Calcium Lvl) 8.3 8.5-10.5 [place] [address]-12-06 09:53:13 Test Item Value Reference Range Interpretation Comments AGAP (test code = AGAP) 8.5 10.0-20.0 [place] [address]-12-06 09:53:13 Test Item Value Reference Range Interpretation Comments eGFR (test code = eGFR) 33 [place] 638190-12-06 09:53:13 Test Item Value Reference Range Interpretation Comments WBC (test code = WBC) 8.7 3.7-10.4 [place] [address]-12-06 09:53:13 Test Item Value Reference Range Interpretation Comments RBC (test code = RBC) 3.96 4.20-5.40 [place] [address]-12-06 09:53:13 Test Item Value Reference Range Interpretation Comments Hgb (test code = Hgb) 10.7 12.0-16.0 [place] [address]-12-06 09:53:13 Test Item Value Reference Range Interpretation Comments Hct (test code = Hct) 32.8 36.0-48.0 [place] [address]-12-06 09:53:13 Test Item Value Reference Range Interpretation Comments MCV (test code = MCV) 83.0 80.0-98.0 [address]12-06 09:53:13 Test Item Value Reference Range Interpretation Comments MCH (test code = MCH) 26.9 pg 27.0-31.0 [place] [address]-12-06 09:53:13 Test Item Value Reference Range Interpretation Comments MCHC (test code = MCHC) 32.4 32.0-36.0 [place] [address]-12-06 09:53:13 Test Item Value Reference Range Interpretation Comments RDW (test code = RDW) 16.5 11.5-14.5 [place] [address]-12-06 09:53:13 Test Item Value Reference Range Interpretation Comments Platelet (test code = Platelet) 157 133-450 [place] [address]-12-06 09:53:13 Test Item Value Reference Range Interpretation Comments MPV (test code = MPV) 7.5 7.4-10.4 [place] [address]-12-06 09:53:13 Test Item Value Reference Range Interpretation Comments Neutrophils # (test code = Neutrophils 7.2 1.5-8.1 #) [place] [address]-12-06 09:53:13 Test Item Value Reference Range Interpretation Comments Lymphocytes # (test code = Lymphocytes 0.9 1.0-5.5 #) [place] [address]-12-06 09:53:13 Test Item Value Reference Range Interpretation Comments Monocytes # (test code 0.5 See_Comment [Aut omated message] The = Monocytes #) system which generated this result tra nsmitted reference range : <=0.8. The reference r christiano was not used to int erpret this result as normal/abnormal . [place] [address]-12-06 09:53:13 Test Item Value Reference Range Interpretation Comments Basophils # (test code 0.1 See_Comment [Aut omated message] The = Basophils #) system which generated this result tra nsmitted reference range : <=0.2. The reference r christiano was not used to int erpret this result as normal/abnormal . [facility] HospitalOmxdnknVQXZSHGHGM9702-80-51 09:53:13 Test Item Value Reference Range Interpretation Comments Segs (test code = Segs) 83.0 45.0-75.0 [facility] HospitalVaowjzcOCITCFMNZH3243-91-77 09:53:13 Test Item Value Reference Range Interpretation Comments Bands (test code = 0.0 See_Comment [Automat ed message] The Bands) system which ge nerated this result transmit sheba reference range : <=11.0. The reference r christiano was not used to interpr et this result as edy l/abnormal. [facility] HospitalWpwkyzgUUAJQRMWMR8993-05-30 09:53:13 Test Item Value Reference Range Interpretation Comments Lymphocytes (test code = Lymphocytes) 10.0 20.0-40.0 [facility] HospitalZugclzkSSVYYUJXJK2669-08-10 09:53:13 Test Item Value Reference Range Interpretation Comments Monocytes (test code = Monocytes) 6.0 2.0-12.0 [facility] HospitalMahqcbvCGHXWOTGKX0695-99-45 09:53:13 Test Item Value Reference Range Interpretation Comments Basophils (test code = 1.0 See_Comment [Aut omated message] The Basophils) system which ge nerated this result tra nsmitted reference range : <=1.0. The reference r christiano was not used to int erpret this result as normal/abnormal . [facility] HospitalNgvmeoqDLZHHMROLT6712-82-14 09:53:13 Test Item Value Reference Range Interpretation Comments Atypical Lymphs (test code = Atypical 0.0 Lymphs) [place] [address]-12-06 09:53:13 Test Item Value Reference Range Interpretation Comments RBC Morph (test code = Normal (09/05/20 3:53 RBC Morph) AM) [facility] HospitalLdxwmbfKCHJKGWZJD8337-43-32 09:53:13 Test Item Value Reference Range Interpretation Comments Plt Morph (test code = Normal (09/05/20 3:53 Plt Morph) AM) [facility]tuqrxkJGNPLZSKFZ5498-61-63 09:53:00 Test Item Value Reference Range Interpretation Comments Coronavirus (COVID-19) Not Detected (09/05/20 JONATHAN (test code = 3:53 AM) Coronavirus (COVID-19) JONATHAN) [place] [address]-12-06 09:53:00 Test Item Value Reference Range Interpretation Comments Coronavirus (COVID-19) Not Detected (09/05/20 JONATHAN (test code = 3:53 AM) Coronavirus (COVID-19) JONATHAN) [place] [address]-12-06 09:53:00 Test Item Value Reference Range Interpretation Comments Coronavirus (COVID-19) Not Detected (09/05/20 JONATHAN (test code = 3:53 AM) Coronavirus (COVID-19) JONATHAN) [place] [address]-12-06 09:53:00 Test Item Value Reference Range Interpretation Comments Coronavirus (COVID-19) Not Detected (09/05/20 JONATHAN (test code = 3:53 AM) Coronavirus (COVID-19) JONATHAN) [place] [address]-12-06 09:53:00 Test Item Value Reference Range Interpretation Comments Coronavirus (COVID-19) Not Detected (09/05/20 JONATHAN (test code = 3:53 AM) Coronavirus (COVID-19) JONATHAN) [place] [address]-12-06 09:53:00 Test Item Value Reference Range Interpretation Comments Coronavirus (COVID-19) Not Detected (09/05/20 JONATHAN (test code = 3:53 AM) Coronavirus (COVID-19) JONATHAN) [place] [address]-12-06 09:53:00 Test Item Value Reference Range Interpretation Comments Coronavirus (COVID-19) Not Detected (09/05/20 JONATHAN (test code = 3:53 AM) Coronavirus (COVID-19) JONATHAN) [place] [address]-12-06 09:53:00 Test Item Value Reference Range Interpretation Comments Coronavirus (COVID-19) Not Detected (09/05/20 JONATHAN (test code = 3:53 AM) Coronavirus (COVID-19) JONATHAN) [place] [address]-12-06 09:53:00 Test Item Value Reference Range Interpretation Comments Coronavirus (COVID-19) Not Detected (09/05/20 JONATHAN (test code = 3:53 AM) Coronavirus (COVID-19) JONATHAN) [facility] HospitalJgsugdyVXCLVEHJPZ3742-99-67 09:53:00 Test Item Value Reference Range Interpretation Comments Coronavirus (COVID-19) Not Detected (09/05/20 JONATHAN (test code = 3:53 AM) Coronavirus (COVID-19) JONATHAN) [facility]1800[facility]14 09:53:00 Test Item Value Reference Range Interpretation Comments Coronavirus (COVID-19) Not Detected (09/05/20 JONATHAN (test code = 3:53 AM) Coronavirus (COVID-19) JONATHAN) [facility]SrimctrVZWKQODZPJ5200-37-89 09:53:00 Test Item Value Reference Range Interpretation Comments Coronavirus (COVID-19) Not Detected (09/05/20 JONATHAN (test code = 3:53 AM) Coronavirus (COVID-19) JONATHAN) [facility] WestRqyfrnvWGBJFNFMFJ4171-63-28 09:53:00 Test Item Value Reference Range Interpretation Comments Coronavirus (COVID-19) Not Detected (09/05/20 JONATHAN (test code = 3:53 AM) Coronavirus (COVID-19) JONATHAN) [facility]KaplycuOTYZRYDFWV2954-47-92 09:53:00 Test Item Value Reference Range Interpretation Comments Coronavirus (COVID-19) Not Detected (09/05/20 JONATHAN (test code = 3:53 AM) Coronavirus (COVID-19) JONATHAN) [facility] HospitalCARDIAC MPHPBPT4772-46-98 04:34:00 Test Item Value Reference Range Interpretation Comments Troponin-I (test code no gt See_Comment [Auto mated message] The = Troponin-I) system which g enerated this result transmit sheba reference range : <=0.40. The reference r christiano was not used to interpr et this result as edy l/abnormal. [facility] [id number] 04:34:00 Test Item Value Reference Range Interpretation Comments Glucose Lvl (test code = Glucose Lvl) 125 70-99 [facility] [id number] 04:34:00 Test Item Value Reference Range Interpretation Comments BUN (test code = BUN) 17 7-22 [facility] [id number] 04:34:00 Test Item Value Reference Range Interpretation Comments Creatinine Lvl (test code = Creatinine 1.51 0.50-1.40 Lvl) [facility]2020-12-06 04:34:00 Test Item Value Reference Range Interpretation Comments Sodium Lvl (test code = Sodium Lvl) 142 135-145 [place] 218490-12-06 04:34:00 Test Item Value Reference Range Interpretation Comments Potassium Lvl (test code = Potassium 4.0 3.5-5.1 Lvl) [place] 218490-12-06 04:34:00 Test Item Value Reference Range Interpretation Comments Chloride Lvl (test code = Chloride Lvl) 108 95-109 [place] 218490-12-06 04:34:00 Test Item Value Reference Range Interpretation Comments CO2 (test code = CO2) 30 24-32 [place] 218490-12-06 04:34:00 Test Item Value Reference Range Interpretation Comments Calcium Lvl (test code = Calcium Lvl) 7.8 8.5-10.5 [place] 218490-12-06 04:34:00 Test Item Value Reference Range Interpretation Comments AGAP (test code = AGAP) 8.0 10.0-20.0 [place] 218490-12-06 04:34:00 Test Item Value Reference Range Interpretation Comments eGFR (test code = eGFR) 33 [place] 638190-12-06 04:34:00 Test Item Value Reference Range Interpretation Comments WBC X 10x3 (test code = WBC X 10x3) 9.7 3.7-10.4 [place] 638190-12-06 04:34:00 Test Item Value Reference Range Interpretation Comments RBC X 10x6 (test code = RBC X 10x6) 3.96 4.20-5.40 [place] 638190-12-06 04:34:00 Test Item Value Reference Range Interpretation Comments Hgb (test code = Hgb) 10.6 12.0-16.0 [place] [address]-12-06 04:34:00 Test Item Value Reference Range Interpretation Comments Hct (test code = Hct) 32.6 36.0-48.0 [place] [address]-12-06 04:34:00 Test Item Value Reference Range Interpretation Comments MCV (test code = MCV) 82.3 80.0-98.0 [place] [address]-12-06 04:34:00 Test Item Value Reference Range Interpretation Comments MCH (test code = MCH) 26.6 pg 27.0-31.0 [facility]exiiisULOLWXMKPL4267-87-14 04:34:00 Test Item Value Reference Range Interpretation Comments MCHC (test code = MCHC) 32.4 32.0-36.0 [facility] HospitalXhgxgafEKPZBWORDP3430-83-12 04:34:00 Test Item Value Reference Range Interpretation Comments RDW (test code = RDW) 16.8 11.5-14.5 [place] 638190-12-06 04:34:00 Test Item Value Reference Range Interpretation Comments Platelet (test code = Platelet) 178 133-450 [facility] HospitalVblrykfGKLWRWEPMM6410-70-76 04:34:00 Test Item Value Reference Range Interpretation Comments MPV (test code = MPV) 8.0 7.4-10.4 [place] 638190-12-06 04:34:00 Test Item Value Reference Range Interpretation Comments PT (test code = PT) 14.7 s 12.0-14.7 [place] 638190-12-06 04:34:00 Test Item Value Reference Range Interpretation Comments INR (test code = INR) 1.14 1 0.85-1.17 [place] 638190-12-06 04:34:00 Test Item Value Reference Range Interpretation Comments PTT (test code = PTT) 31.2 s 22.9-35.8 [place] 638190-12-06 04:34:00 Test Item Value Reference Range Interpretation Comments Segs (test code = Segs) 73.9 45.0-75.0 [facility] H[id number] 04:34:00 Test Item Value Reference Range Interpretation Comments Lymphocytes (test code = Lymphocytes) 11.0 20.0-40.0 [place] [address]-12-06 04:34:00 Test Item Value Reference Range Interpretation Comments Monocytes (test code = Monocytes) 13.6 2.0-12.0 [place] 638190-12-06 04:34:00 Test Item Value Reference Range Interpretation Comments Eosinophils (test code = 0.7 See_Comment [A utomated message] The Eosinophils) system which ge nerated this result tra nsmitted reference range : <=4.0. The reference r christiano was not used to int erpret this result as normal/abnormal . [facility]ysuvkIVRGYDSJVO6280-[facility] 04:34:00 Test Item Value Reference Range Interpretation Comments Basophils (test code = 0.8 See_Comment [Aut omated message] The Basophils) system which ge nerated this result tra nsmitted reference range : <=1.0. The reference r christiano was not used to int erpret this result as normal/abnormal . [facility] HospitalCjeyeojRAHUZHWGXY6405-89-25 04:34:00 Test Item Value Reference Range Interpretation Comments Neutrophils # (test code = Neutrophils 7.2 1.5-8.1 #) [facility] HospitalZpdvvvhLPJGDYLAKK2883-65-24 04:34:00 Test Item Value Reference Range Interpretation Comments Lymphocytes # (test code = Lymphocytes 1.1 1.0-5.5 #) [facility] HospitalGeixarxKXBIPDAZDF4183-55-58 04:34:00 Test Item Value Reference Range Interpretation Comments Monocytes # (test code 1.3 See_Comment [Aut omated message] The = Monocytes #) system which generated this result tra nsmitted reference range : <=0.8. The reference r christiano was not used to int erpret this result as normal/abnormal . [facility] HospitalRpzoeppTOVNIZPBYZ2327-23-97 04:34:00 Test Item Value Reference Range Interpretation Comments Eosinophils # (test code 0.1 See_Comment [A utomated message] The = Eosinophils #) system whic h generated this result tra nsmitted reference range : <=0.5. The reference r christiano was not used to int erpret this result as normal/abnormal . [facility] HospitalTtrthvkDUZVUBWADK3949-46-04 04:34:00 Test Item Value Reference Range Interpretation Comments Basophils # (test code 0.1 See_Comment [Aut omated message] The = Basophils #) system which generated this result tra nsmitted reference range : <=0.2. The reference r christiano was not used to int erpret this result as normal/abnormal . [facility]ARD[facility] [id number] 04:34:00 Test Item Value Reference Range Interpretation Comments Troponin-I (test code no gt See_Comment [Auto mated message] The = Troponin-I) system which g enerated this result transmit [place]ba reference range : <=0.40. The reference r christiano was not used to interpr et this result as edy l/abnormal. [facility]2020-12-06 04:34:00 Test Item Value Reference Range Interpretation Comments Glucose Lvl (test code = Glucose Lvl) 125 70-99 [place] 218490-12-06 04:34:00 Test Item Value Reference Range Interpretation Comments BUN (test code = BUN) 17 7-22 [place] 218490-12-06 04:34:00 Test Item Value Reference Range Interpretation Comments Creatinine Lvl (test code = Creatinine 1.51 0.50-1.40 Lvl) [place] 218490-12-06 04:34:00 Test Item Value Reference Range Interpretation Comments Sodium Lvl (test code = Sodium Lvl) 142 135-145 [place] 218490-12-06 04:34:00 Test Item Value Reference Range Interpretation Comments Potassium Lvl (test code = Potassium 4.0 3.5-5.1 Lvl) [place] 218490-12-06 04:34:00 Test Item Value Reference Range Interpretation Comments Chloride Lvl (test code = Chloride Lvl) 108 95-109 [place] 218490-12-06 04:34:00 Test Item Value Reference Range Interpretation Comments CO2 (test code = CO2) 30 24-32 [place] 218490-12-06 04:34:00 Test Item Value Reference Range Interpretation Comments Calcium Lvl (test code = Calcium Lvl) 7.8 8.5-10.5 [place] 218490-12-06 04:34:00 Test Item Value Reference Range Interpretation Comments AGAP (test code = AGAP) 8.0 10.0-20.0 [place] 218490-12-06 04:34:00 Test Item Value Reference Range Interpretation Comments eGFR (test code = eGFR) 33 [place] 638190-12-06 04:34:00 Test Item Value Reference Range Interpretation Comments WBC X 10x3 (test code = WBC X 10x3) 9.7 3.7-10.4 [place] 638190-12-06 04:34:00 Test Item Value Reference Range Interpretation Comments RBC X 10x6 (test code = RBC X 10x6) 3.96 4.20-5.[address]12-06 04:34:00 Test Item Value Reference Range Interpretation Comments Hgb (test code = Hgb) 10.6 12.0-16.0 [place] [address]-12-06 04:34:00 Test Item Value Reference Range Interpretation Comments Hct (test code = Hct) 32.6 36.0-48.0 [place] 638190-12-06 04:34:00 Test Item Value Reference Range Interpretation Comments MCV (test code = MCV) 82.3 80.0-98.0 [place] [address]-12-06 04:34:00 Test Item Value Reference Range Interpretation Comments MCH (test code = MCH) 26.6 pg 27.0-31.0 [place] 638190-12-06 04:34:00 Test Item Value Reference Range Interpretation Comments MCHC (test code = MCHC) 32.4 32.0-36.0 [place] 638190-12-06 04:34:00 Test Item Value Reference Range Interpretation Comments RDW (test code = RDW) 16.8 11.5-14.5 [place] [address]-12-06 04:34:00 Test Item Value Reference Range Interpretation Comments Platelet (test code = Platelet) 178 133-450 [facility] HospitalLhfykagOCONLHKACP7221-19-23 04:34:00 Test Item Value Reference Range Interpretation Comments MPV (test code = MPV) 8.0 7.4-10.4 [place] [address]-12-06 04:34:00 Test Item Value Reference Range Interpretation Comments PT (test code = PT) 14.7 s 12.0-14.7 [place] [address]-12-06 04:34:00 Test Item Value Reference Range Interpretation Comments INR (test code = INR) 1.14 1 0.85-1.17 [place] [address]-12-06 04:34:00 Test Item Value Reference Range Interpretation Comments PTT (test code = PTT) 31.2 s 22.9-35.8 [place] [address]-12-06 04:34:00 Test Item Value Reference Range Interpretation Comments Segs (test code = Segs) 73.9 45.0-75.0 [place] [address]-12-06 04:34:00 Test Item Value Reference Range Interpretation Comments Lymphocytes (test code = Lymphocytes) 11.0 20.0-40.0 [facility] HospitalJseygtoWGJTEVVJXV1744-67-25 04:34:00 Test Item Value Reference Range Interpretation Comments Monocytes (test code = Monocytes) 13.6 2.0-12.0 [facility] HospitalMssgojxTTJJBLOLMO4836-23-40 04:34:00 Test Item Value Reference Range Interpretation Comments Eosinophils (test code = 0.7 See_Comment [A utomated message] The Eosinophils) system which ge nerated this result tra nsmitted reference range : <=4.0. The reference r christiano was not used to int erpret this result as normal/abnormal . [facility] HospitalVfpkgeuIBVZFOSZIK0449-06-39 04:34:00 Test Item Value Reference Range Interpretation Comments Basophils (test code = 0.8 See_Comment [Aut omated message] The Basophils) system which ge nerated this result tra nsmitted reference range : <=1.0. The reference r christiano was not used to int erpret this result as normal/abnormal . [facility] HospitalUvnrxncYSFOHLHUZG1858-47-62 04:34:00 Test Item Value Reference Range Interpretation Comments Neutrophils # (test code = Neutrophils 7.2 1.5-8.1 #) [facility] HospitalUjvidyrWIKSVIAWFB0477-91-07 04:34:00 Test Item Value Reference Range Interpretation Comments Lymphocytes # (test code = Lymphocytes 1.1 1.0-5.5 #) [facility] HospitalVzlserwDMADXYCYWF6749-06-75 04:34:00 Test Item Value Reference Range Interpretation Comments Monocytes # (test code 1.3 See_Comment [Aut omated message] The = Monocytes #) system which generated this result tra nsmitted reference range : <=0.8. The reference r christiano was not used to int erpret this result as normal/abnormal . [facility] HospitalNymuikpXLLGZNZKIP9319-81-77 04:34:00 Test Item Value Reference Range Interpretation Comments Eosinophils # (test code 0.1 See_Comment [A utomated message] The = Eosinophils #) system whic h generated this result tra nsmitted reference range : <=0.5. The reference r christiano was not used to int erpret this result as normal/abnormal . [facility] HospitalJypmgogDGRIHPXZYV8669-16-38 04:34:00 Test Item Value Reference Range Interpretation Comments Basophils # (test code 0.1 See_Comment [Aut omated message] The = Basophils #) system which generated this result tra nsmitted reference range : <=0.2. The reference r christiano was not used to int erpret this result as normal/abnormal . [facility] [id number] 04:34:00 Test Item Value Reference Range Interpretation Comments Troponin-I (test code no gt See_Comment [Auto mated message] The = Troponin-I) system which g enerated this result transmit [place]ba reference range : <=0.40. The reference r christiano was not used to interpr et this result as edy l/abnormal. [facility] [employer] [id number] 04:34:00 Test Item Value Reference Range Interpretation Comments Glucose Lvl (test code = Glucose Lvl) 125 70-99 [facility] [employer] [facility] [id number] 04:34:00 Test Item Value Reference Range Interpretation Comments BUN (test code = BUN) 17 7-22 [facility] [id number] 04:34:00 Test Item Value Reference Range Interpretation Comments Creatinine Lvl (test code = Creatinine 1.51 0.50-1.40 Lvl) [facility] [employer] [id number] 04:34:00 Test Item Value Reference Range Interpretation Comments Sodium Lvl (test code = Sodium Lvl) 142 135-145 [facility] [employer] [id number] 04:34:00 Test Item Value Reference Range Interpretation Comments Potassium Lvl (test code = Potassium 4.0 3.5-5.1 Lvl) [facility] [employer] [id number] 04:34:00 Test Item Value Reference Range Interpretation Comments Chloride Lvl (test code = Chloride Lvl) 108 95-109 [facility] [employer] [facility] [id number] 04:34:00 Test Item Value Reference Range Interpretation Comments CO2 (test code = CO2) 30 24-32 [facility] [employer] [facility] [id number] 04:34:00 Test Item Value Reference Range Interpretation Comments Calcium Lvl (test code = Calcium Lvl) 7.8 8.5-10.5 [facility] [employer] [id number] 04:34:00 Test Item Value Reference Range Interpretation Comments AGAP (test code = AGAP) 8.0 10.0-20.0 [facility]2020-12-06 04:34:00 Test Item Value Reference Range Interpretation Comments eGFR (test code = eGFR) 33 [place] 638190-12-06 04:34:00 Test Item Value Reference Range Interpretation Comments WBC X 10x3 (test code = WBC X 10x3) 9.7 3.7-10.4 [facility] HospitalWwayhsrVARSQKNFQF3707-99-27 04:34:00 Test Item Value Reference Range Interpretation Comments RBC X 10x6 (test code = RBC X 10x6) 3.96 4.20-5.40 [place] 638190-12-06 04:34:00 Test Item Value Reference Range Interpretation Comments Hgb (test code = Hgb) 10.6 12.0-16.0 [place] 638190-12-06 04:34:00 Test Item Value Reference Range Interpretation Comments Hct (test code = Hct) 32.6 36.0-48.0 [facility] HospitalWhjsebbKCUJXSDULJ8863-55-85 04:34:00 Test Item Value Reference Range Interpretation Comments MCV (test code = MCV) 82.3 80.0-98.0 [place] 638190-12-06 04:34:00 Test Item Value Reference Range Interpretation Comments MCH (test code = MCH) 26.6 pg 27.0-31.0 [facility] HospitalDcwpknaBSIOLUFXXU5364-47-48 04:34:00 Test Item Value Reference Range Interpretation Comments MCHC (test code = MCHC) 32.4 32.0-36.0 [facility] HospitalDhpgwkmKXXLVABSQN3213-94-94 04:34:00 Test Item Value Reference Range Interpretation Comments RDW (test code = RDW) 16.8 11.5-14.5 [place] 638190-12-06 04:34:00 Test Item Value Reference Range Interpretation Comments Platelet (test code = Platelet) 178 133-450 [facility] HospitalTnapilwRIPWWGGMJB0686-15-42 04:34:00 Test Item Value Reference Range Interpretation Comments MPV (test code = MPV) 8.0 7.4-10.4 [place] 638190-12-06 04:34:00 Test Item Value Reference Range Interpretation Comments PT (test code = PT) 14.7 s 12.0-14.7 [place] 638190-12-06 04:34:00 Test Item Value Reference Range Interpretation Comments INR (test code = INR) 1.14 1 0.85-1.17 [place] 638190-12-06 04:34:00 Test Item Value Reference Range Interpretation Comments PTT (test code = PTT) 31.2 s 22.9-35.8 [place] 638190-12-06 04:34:00 Test Item Value Reference Range Interpretation Comments Segs (test code = Segs) 73.9 45.0-75.0 [place] 638190-12-06 04:34:00 Test Item Value Reference Range Interpretation Comments Lymphocytes (test code = Lymphocytes) 11.0 20.0-40.0 [place] 638190-12-06 04:34:00 Test Item Value Reference Range Interpretation Comments Monocytes (test code = Monocytes) 13.6 2.0-12.0 [place] 638190-12-06 04:34:00 Test Item Value Reference Range Interpretation Comments Eosinophils (test code = 0.7 See_Comment [A utomated message] The Eosinophils) system which ge nerated this result tra nsmitted reference range : <=4.0. The reference r christiano was not used to int erpret this result as normal/abnormal . [facility] HospitalStdtdplJAWNVBPIIZ7596-83-97 04:34:00 Test Item Value Reference Range Interpretation Comments Basophils (test code = 0.8 See_Comment [Aut omated message] The Basophils) system which ge nerated this result tra nsmitted reference range : <=1.0. The reference r christiano was not used to int erpret this result as normal/abnormal . [facility] HospitalWejhzfwIVJXBQSXMB9766-98-19 04:34:00 Test Item Value Reference Range Interpretation Comments Neutrophils # (test code = Neutrophils 7.2 1.5-8.1 #) [place] 638190-12-06 04:34:00 Test Item Value Reference Range Interpretation Comments Lymphocytes # (test code = Lymphocytes 1.1 1.0-5.5 #) [place] 638190-12-06 04:34:00 Test Item Value Reference Range Interpretation Comments Monocytes # (test code 1.3 See_Comment [Aut omated message] The = Monocytes #) system which generated this result tra nsmitted reference range : <=0.8. The reference r christiano was not used to int erpret this result as normal/abnormal . [facility] HospitalLymuqakIMTMAPERGL8938-73-99 04:34:00 Test Item Value Reference Range Interpretation Comments Eosinophils # (test code 0.1 See_Comment [A utomated message] The = Eosinophils #) system whic h generated this result tra nsmitted reference range : <=0.5. The reference r christiano was not used to int erpret this result as normal/abnormal . [facility] HospitalGwxjdbiGHFJGDDVUK4609-72-26 04:34:00 Test Item Value Reference Range Interpretation Comments Basophils # (test code 0.1 See_Comment [Aut omated message] The = Basophils #) system which generated this result tra nsmitted reference range : <=0.2. The reference r christiano was not used to int erpret this result as normal/abnormal . [facility] [id number] 04:34:00 Test Item Value Reference Range Interpretation Comments Troponin-I (test code no gt See_Comment [Auto mated message] The = Troponin-I) system which g enerated this result transmit [place] reference range : <=0.40. The reference r christiano was not used to interpr et this result as edy l/abnormal. [facility] [employer] [id number] 04:34:00 Test Item Value Reference Range Interpretation Comments Glucose Lvl (test code = Glucose Lvl) 125 70-99 [facility] [id number] 04:34:00 Test Item Value Reference Range Interpretation Comments BUN (test code = BUN) 17 7-22 [facility] [id number] 04:34:00 Test Item Value Reference Range Interpretation Comments Creatinine Lvl (test code = Creatinine 1.51 0.50-1.40 Lvl) [facility] [id number] 04:34:00 Test Item Value Reference Range Interpretation Comments Sodium Lvl (test code = Sodium Lvl) 142 135-145 [facility] [id number] 04:34:00 Test Item Value Reference Range Interpretation Comments Potassium Lvl (test code = Potassium 4.0 3.5-5.1 Lvl) [facility] [id number] 04:34:00 Test Item Value Reference Range Interpretation Comments Chloride Lvl (test code = Chloride Lvl) 108 95-109 [facility]2020-12-06 04:34:00 Test Item Value Reference Range Interpretation Comments CO2 (test code = CO2) 30 24-32 [place] 218490-12-06 04:34:00 Test Item Value Reference Range Interpretation Comments Calcium Lvl (test code = Calcium Lvl) 7.8 8.5-10.5 [place] 218490-12-06 04:34:00 Test Item Value Reference Range Interpretation Comments AGAP (test code = AGAP) 8.0 10.0-20.0 [place] 218490-12-06 04:34:00 Test Item Value Reference Range Interpretation Comments eGFR (test code = eGFR) 33 [facility] HospitalNvffirbEFGUMXASJZ6526-48-48 04:34:00 Test Item Value Reference Range Interpretation Comments WBC X 10x3 (test code = WBC X 10x3) 9.7 3.7-10.4 [place] 638190-12-06 04:34:00 Test Item Value Reference Range Interpretation Comments RBC X 10x6 (test code = RBC X 10x6) 3.96 4.20-5.40 [place] 638190-12-06 04:34:00 Test Item Value Reference Range Interpretation Comments Hgb (test code = Hgb) 10.6 12.0-16.0 [place] 638190-12-06 04:34:00 Test Item Value Reference Range Interpretation Comments Hct (test code = Hct) 32.6 36.0-48.0 [place] 638190-12-06 04:34:00 Test Item Value Reference Range Interpretation Comments MCV (test code = MCV) 82.3 80.0-98.0 [place] 638190-12-06 04:34:00 Test Item Value Reference Range Interpretation Comments MCH (test code = MCH) 26.6 pg 27.0-31.0 [place] 638190-12-06 04:34:00 Test Item Value Reference Range Interpretation Comments MCHC (test code = MCHC) 32.4 32.0-36.0 [place] 638190-12-06 04:34:00 Test Item Value Reference Range Interpretation Comments RDW (test code = RDW) 16.8 11.5-14.5 [place] [address]-12-06 04:34:00 Test Item Value Reference Range Interpretation Comments Platelet (test code = Platelet) 178 133-450 [place] 638190-12-06 04:34:00 Test Item Value Reference Range Interpretation Comments MPV (test code = MPV) 8.0 7.4-10.4 [place] [address]-12-06 04:34:00 Test Item Value Reference Range Interpretation Comments PT (test code = PT) 14.7 s 12.0-14.7 [place] [address]-12-06 04:34:00 Test Item Value Reference Range Interpretation Comments INR (test code = INR) 1.14 1 0.85-1.17 [place] [address]-12-06 04:34:00 Test Item Value Reference Range Interpretation Comments PTT (test code = PTT) 31.2 s 22.9-35.8 [place] [address]-12-06 04:34:00 Test Item Value Reference Range Interpretation Comments Segs (test code = Segs) 73.9 45.0-75.0 [place] [address]-12-06 04:34:00 Test Item Value Reference Range Interpretation Comments Lymphocytes (test code = Lymphocytes) 11.0 20.0-40.0 [place] [address]-12-06 04:34:00 Test Item Value Reference Range Interpretation Comments Monocytes (test code = Monocytes) 13.6 2.0-12.0 [place] [address]-12-06 04:34:00 Test Item Value Reference Range Interpretation Comments Eosinophils (test code = 0.7 See_Comment [A utomated message] The Eosinophils) system which ge nerated this result tra nsmitted reference range : <=4.0. The reference r christiano was not used to int erpret this result as normal/abnormal . [place] [address]-12-06 04:34:00 Test Item Value Reference Range Interpretation Comments Basophils (test code = 0.8 See_Comment [Aut omated message] The Basophils) system which ge nerated this result tra nsmitted reference range : <=1.0. The reference r christiano was not used to int erpret this result as normal/abnormal . [place] [address]-12-06 04:34:00 Test Item Value Reference Range Interpretation Comments Neutrophils # (test code = Neutrophils 7.2 1.5-8.1 #) [facility]XVQASWSIUY0519-73-33 04:34:00 Test Item Value Reference Range Interpretation Comments Lymphocytes # (test code = Lymphocytes 1.1 1.0-5.5 #) [facility] HospitalEzjxqcaUAGGYTCXXN9064-11-75 04:34:00 Test Item Value Reference Range Interpretation Comments Monocytes # (test code 1.3 See_Comment [Aut omated message] The = Monocytes #) system which generated this result tra nsmitted reference range : <=0.8. The reference r christiano was not used to int erpret this result as normal/abnormal . [facility] HospitalIsjziquGXUGXYCWVO6357-64-35 04:34:00 Test Item Value Reference Range Interpretation Comments Eosinophils # (test code 0.1 See_Comment [A utomated message] The = Eosinophils #) system whic h generated this result tra nsmitted reference range : <=0.5. The reference r christiano was not used to int erpret this result as normal/abnormal . [facility]NfzxmfaLOCLFDHVPL8416-72-67 04:34:00 Test Item Value Reference Range Interpretation Comments Basophils # (test code 0.1 See_Comment [Aut omated message] The = Basophils #) system which generated this result tra nsmitted reference range : <=0.2. The reference r christiano was not used to int erpret this result as normal/abnormal . [facility] [id number] 04:34:00 Test Item Value Reference Range Interpretation Comments Troponin-I (test code no gt See_Comment [Auto mated message] The = Troponin-I) system which g enerated this result transmit sheba reference range : <=0.40. The reference r christiano was not used to interpr et this result as edy l/abnormal. [facility] [id number] 04:34:00 Test Item Value Reference Range Interpretation Comments Glucose Lvl (test code = Glucose Lvl) 125 70-99 [facility] [id number] 04:34:00 Test Item Value Reference Range Interpretation Comments BUN (test code = BUN) 17 7-22 [facility] [id number] 04:34:00 Test Item Value Reference Range Interpretation Comments Creatinine Lvl (test code = Creatinine 1.51 0.50-1.40 Lvl) [facility]2020-12-06 04:34:00 Test Item Value Reference Range Interpretation Comments Sodium Lvl (test code = Sodium Lvl) 142 135-145 [place] 218490-12-06 04:34:00 Test Item Value Reference Range Interpretation Comments Potassium Lvl (test code = Potassium 4.0 3.5-5.1 Lvl) [place] 218490-12-06 04:34:00 Test Item Value Reference Range Interpretation Comments Chloride Lvl (test code = Chloride Lvl) 108 95-109 [place] 218490-12-06 04:34:00 Test Item Value Reference Range Interpretation Comments CO2 (test code = CO2) 30 24-32 [place] 218490-12-06 04:34:00 Test Item Value Reference Range Interpretation Comments Calcium Lvl (test code = Calcium Lvl) 7.8 8.5-10.5 [place] 218490-12-06 04:34:00 Test Item Value Reference Range Interpretation Comments AGAP (test code = AGAP) 8.0 10.0-20.0 [place] 218490-12-06 04:34:00 Test Item Value Reference Range Interpretation Comments eGFR (test code = eGFR) 33 [place] 638190-12-06 04:34:00 Test Item Value Reference Range Interpretation Comments WBC X 10x3 (test code = WBC X 10x3) 9.7 3.7-10.4 [place] [address]-12-06 04:34:00 Test Item Value Reference Range Interpretation Comments RBC X 10x6 (test code = RBC X 10x6) 3.96 4.20-5.40 [place] [address]-12-06 04:34:00 Test Item Value Reference Range Interpretation Comments Hgb (test code = Hgb) 10.6 12.0-16.0 [place] [address]-12-06 04:34:00 Test Item Value Reference Range Interpretation Comments Hct (test code = Hct) 32.6 36.0-48.0 [place] [address]-12-06 04:34:00 Test Item Value Reference Range Interpretation Comments MCV (test code = MCV) 82.3 80.0-98.0 [address]12-06 04:34:00 Test Item Value Reference Range Interpretation Comments MCH (test code = MCH) 26.6 pg 27.0-31.0 [place] 638190-12-06 04:34:00 Test Item Value Reference Range Interpretation Comments MCHC (test code = MCHC) 32.4 32.0-36.0 [facility] HospitalSjkqqzaVSTJCIDUKJ4684-09-86 04:34:00 Test Item Value Reference Range Interpretation Comments RDW (test code = RDW) 16.8 11.5-14.5 [place] [address]-12-06 04:34:00 Test Item Value Reference Range Interpretation Comments Platelet (test code = Platelet) 178 133-450 [facility] HospitalGqpiwniVLIZMEJCOY1378-27-12 04:34:00 Test Item Value Reference Range Interpretation Comments MPV (test code = MPV) 8.0 7.4-10.4 [place] 638190-12-06 04:34:00 Test Item Value Reference Range Interpretation Comments PT (test code = PT) 14.7 s 12.0-14.7 [place] [address]-12-06 04:34:00 Test Item Value Reference Range Interpretation Comments INR (test code = INR) 1.14 1 0.85-1.17 [place] [address]-12-06 04:34:00 Test Item Value Reference Range Interpretation Comments PTT (test code = PTT) 31.2 s 22.9-35.8 [place] [address]-12-06 04:34:00 Test Item Value Reference Range Interpretation Comments Segs (test code = Segs) 73.9 45.0-75.0 [place] 638190-12-06 04:34:00 Test Item Value Reference Range Interpretation Comments Lymphocytes (test code = Lymphocytes) 11.0 20.0-40.0 [place] [address]-12-06 04:34:00 Test Item Value Reference Range Interpretation Comments Monocytes (test code = Monocytes) 13.6 2.0-12.0 [place] [address]-12-06 04:34:00 Test Item Value Reference Range Interpretation Comments Eosinophils (test code = 0.7 See_Comment [A utomated message] The Eosinophils) system which ge nerated this result tra nsmitted reference range : <=4.0. The reference r christiano was not used to int erpret this result as normal/abnormal . [facility]JczholfWTTSGJEPFI4511-80-67 04:34:00 Test Item Value Reference Range Interpretation Comments Basophils (test code = 0.8 See_Comment [Aut omated message] The Basophils) system which ge nerated this result tra nsmitted reference range : <=1.0. The reference r christiano was not used to int erpret this result as normal/abnormal . [facility] HospitalCobmexaUYNTVXWUJN9645-86-05 04:34:00 Test Item Value Reference Range Interpretation Comments Neutrophils # (test code = Neutrophils 7.2 1.5-8.1 #) [facility] HospitalGlvjrtiDISQCCUAWF1279-35-38 04:34:00 Test Item Value Reference Range Interpretation Comments Lymphocytes # (test code = Lymphocytes 1.1 1.0-5.5 #) [facility] HospitalJlgftdkGTWGTGJIXK4771-37-29 04:34:00 Test Item Value Reference Range Interpretation Comments Monocytes # (test code 1.3 See_Comment [Aut omated message] The = Monocytes #) system which generated this result tra nsmitted reference range : <=0.8. The reference r christiano was not used to int erpret this result as normal/abnormal . [facility] HospitalClqczdmQTLJHUEAXG8092-59-29 04:34:00 Test Item Value Reference Range Interpretation Comments Eosinophils # (test code 0.1 See_Comment [A utomated message] The = Eosinophils #) system whic h generated this result tra nsmitted reference range : <=0.5. The reference r christiano was not used to int erpret this result as normal/abnormal . [facility] HospitalKtfofheINNCHLXHHY9225-95-66 04:34:00 Test Item Value Reference Range Interpretation Comments Basophils # (test code 0.1 See_Comment [Aut omated message] The = Basophils #) system which generated this result tra nsmitted reference range : <=0.2. The reference r christiano was not used to int erpret this result as normal/abnormal . [facility] [id number] 04:34:00 Test Item Value Reference Range Interpretation Comments Troponin-I (test code no gt See_Comment [Auto mated message] The = Troponin-I) system which g enerated this result transmit sheba reference range : <=0.40. The reference r christiano was not used to interpr et this result as edy l/abnormal. [place] 218490-12-06 04:34:00 Test Item Value Reference Range Interpretation Comments Glucose Lvl (test code = Glucose Lvl) 125 70-99 [place] [address]-12-06 04:34:00 Test Item Value Reference Range Interpretation Comments BUN (test code = BUN) 17 7-22 [place] 218490-12-06 04:34:00 Test Item Value Reference Range Interpretation Comments Creatinine Lvl (test code = Creatinine 1.51 0.50-1.40 Lvl) [place] [address]-12-06 04:34:00 Test Item Value Reference Range Interpretation Comments Sodium Lvl (test code = Sodium Lvl) 142 135-145 [place] 218490-12-06 04:34:00 Test Item Value Reference Range Interpretation Comments Potassium Lvl (test code = Potassium 4.0 3.5-5.1 Lvl) [place] 218490-12-06 04:34:00 Test Item Value Reference Range Interpretation Comments Chloride Lvl (test code = Chloride Lvl) 108 95-109 [place] 218490-12-06 04:34:00 Test Item Value Reference Range Interpretation Comments CO2 (test code = CO2) 30 24-32 [place] 218490-12-06 04:34:00 Test Item Value Reference Range Interpretation Comments Calcium Lvl (test code = Calcium Lvl) 7.8 8.5-10.5 [place] 218490-12-06 04:34:00 Test Item Value Reference Range Interpretation Comments AGAP (test code = AGAP) 8.0 10.0-20.0 [place] 218490-12-06 04:34:00 Test Item Value Reference Range Interpretation Comments eGFR (test code = eGFR) 33 [place] 638190-12-06 04:34:00 Test Item Value Reference Range Interpretation Comments WBC X 10x3 (test code = WBC X 10x3) 9.7 3.7-10.4 [place] [address]-12-06 04:34:00 Test Item Value Reference Range Interpretation Comments RBC X 10x6 (test code = RBC X 10x6) 3.96 4.20-5.40 [place] [address]-12-06 04:34:00 Test Item Value Reference Range Interpretation Comments Hgb (test code = Hgb) 10.6 12.0-16.0 [place] [address]-12-06 04:34:00 Test Item Value Reference Range Interpretation Comments Hct (test code = Hct) 32.6 36.0-48.0 [place] [address]-12-06 04:34:00 Test Item Value Reference Range Interpretation Comments MCV (test code = MCV) 82.3 80.0-98.0 [place] [address]-12-06 04:34:00 Test Item Value Reference Range Interpretation Comments MCH (test code = MCH) 26.6 pg 27.0-31.0 [place] 638190-12-06 04:34:00 Test Item Value Reference Range Interpretation Comments MCHC (test code = MCHC) 32.4 32.0-36.0 [place] [address]-12-06 04:34:00 Test Item Value Reference Range Interpretation Comments RDW (test code = RDW) 16.8 11.5-14.5 [place] [address]-12-06 04:34:00 Test Item Value Reference Range Interpretation Comments Platelet (test code = Platelet) 178 133-450 [facility] HospitalGloovfeTCQVRGUHVD4745-94-01 04:34:00 Test Item Value Reference Range Interpretation Comments MPV (test code = MPV) 8.0 7.4-10.4 [place] [address]-12-06 04:34:00 Test Item Value Reference Range Interpretation Comments PT (test code = PT) 14.7 s 12.0-14.7 [place] [address]-12-06 04:34:00 Test Item Value Reference Range Interpretation Comments INR (test code = INR) 1.14 1 0.85-1.17 [place] [address]-12-06 04:34:00 Test Item Value Reference Range Interpretation Comments PTT (test code = PTT) 31.2 s 22.9-35.8 [place] [address]-12-06 04:34:00 Test Item Value Reference Range Interpretation Comments Segs (test code = Segs) 73.9 45.0-75.0 [place] [address]-12-06 04:34:00 Test Item Value Reference Range Interpretation Comments Lymphocytes (test code = Lymphocytes) 11.0 20.0-40.0 [facility] HospitalLrygdntNEAXJDHZYD6549-30-91 04:34:00 Test Item Value Reference Range Interpretation Comments Monocytes (test code = Monocytes) 13.6 2.0-12.0 [facility] HospitalRvrjbpcTRUSIMLIKY2066-98-83 04:34:00 Test Item Value Reference Range Interpretation Comments Eosinophils (test code = 0.7 See_Comment [A utomated message] The Eosinophils) system which ge nerated this result tra nsmitted reference range : <=4.0. The reference r christiano was not used to int erpret this result as normal/abnormal . [facility] HospitalGbdnbbpLQXOOADFBS4244-74-12 04:34:00 Test Item Value Reference Range Interpretation Comments Basophils (test code = 0.8 See_Comment [Aut omated message] The Basophils) system which ge nerated this result tra nsmitted reference range : <=1.0. The reference r christiano was not used to int erpret this result as normal/abnormal . [facility] HospitalUryinhuNXHKZXIFTT5003-72-12 04:34:00 Test Item Value Reference Range Interpretation Comments Neutrophils # (test code = Neutrophils 7.2 1.5-8.1 #) [facility] HospitalKjfmtpbPCTJJNFREW9613-07-59 04:34:00 Test Item Value Reference Range Interpretation Comments Lymphocytes # (test code = Lymphocytes 1.1 1.0-5.5 #) [facility] HospitalCzrynazUENQDYSOOU0887-93-79 04:34:00 Test Item Value Reference Range Interpretation Comments Monocytes # (test code 1.3 See_Comment [Aut omated message] The = Monocytes #) system which generated this result tra nsmitted reference range : <=0.8. The reference r christiano was not used to int erpret this result as normal/abnormal . [facility] HospitalJxvujwyERWFFGYOXM1639-18-76 04:34:00 Test Item Value Reference Range Interpretation Comments Eosinophils # (test code 0.1 See_Comment [A utomated message] The = Eosinophils #) system whic h generated this result tra nsmitted reference range : <=0.5. The reference r christiano was not used to int erpret this result as normal/abnormal . [facility] HospitalHipfmtdVOFUAPDYHP2596-33-05 04:34:00 Test Item Value Reference Range Interpretation Comments Basophils # (test code 0.1 See_Comment [Aut omated message] The = Basophils #) system which generated this result tra nsmitted reference range : <=0.2. The reference r christiano was not used to int erpret this result as normal/abnormal . [facility] [id number] 04:34:00 Test Item Value Reference Range Interpretation Comments Troponin-I (test code no gt See_Comment [Auto mated message] The = Troponin-I) system which g enerated this result transmit sheba reference range : <=0.40. The reference r christiano was not used to interpr et this result as edy l/abnormal. [facility] [employer] [id number] 04:34:00 Test Item Value Reference Range Interpretation Comments Glucose Lvl (test code = Glucose Lvl) 125 70-99 [facility] [employer] [id number] 04:34:00 Test Item Value Reference Range Interpretation Comments BUN (test code = BUN) 17 7-22 [facility] [employer]2020-12-06 04:34:00 Test Item Value Reference Range Interpretation Comments Creatinine Lvl (test code = Creatinine 1.51 0.50-1.40 Lvl) [facility] [employer] [id number] 04:34:00 Test Item Value Reference Range Interpretation Comments Sodium Lvl (test code = Sodium Lvl) 142 135-145 [facility] [employer] [id number] 04:34:00 Test Item Value Reference Range Interpretation Comments Potassium Lvl (test code = Potassium 4.0 3.5-5.1 Lvl) [facility] [employer] [id number] 04:34:00 Test Item Value Reference Range Interpretation Comments Chloride Lvl (test code = Chloride Lvl) 108 95-109 [facility] [employer]2020-12-06 04:34:00 Test Item Value Reference Range Interpretation Comments CO2 (test code = CO2) 30 24-32 [facility] [employer] [id number] 04:34:00 Test Item Value Reference Range Interpretation Comments Calcium Lvl (test code = Calcium Lvl) 7.8 8.5-10.5 [facility] [employer] [id number] 04:34:00 Test Item Value Reference Range Interpretation Comments AGAP (test code = AGAP) 8.0 10.0-20.0 [facility]2020-12-06 04:34:00 Test Item Value Reference Range Interpretation Comments eGFR (test code = eGFR) 33 [facility] HospitalKxemmysDZQRSISIXT0695-90-87 04:34:00 Test Item Value Reference Range Interpretation Comments WBC X 10x3 (test code = WBC X 10x3) 9.7 3.7-10.4 [facility] HospitalFyrvzwnUXJUZMRLHN1767-43-98 04:34:00 Test Item Value Reference Range Interpretation Comments RBC X 10x6 (test code = RBC X 10x6) 3.96 4.20-5.40 [place] 638190-12-06 04:34:00 Test Item Value Reference Range Interpretation Comments Hgb (test code = Hgb) 10.6 12.0-16.0 [place] 638190-12-06 04:34:00 Test Item Value Reference Range Interpretation Comments Hct (test code = Hct) 32.6 36.0-48.0 [facility] HospitalXsssnnrTFVPOKVALS7565-52-36 04:34:00 Test Item Value Reference Range Interpretation Comments MCV (test code = MCV) 82.3 80.0-98.0 [facility] HospitalWiszbowCQZMYTZAAZ2854-68-65 04:34:00 Test Item Value Reference Range Interpretation Comments MCH (test code = MCH) 26.6 pg 27.0-31.0 [facility] HospitalUiudvgrZSDNSDONVZ5025-50-64 04:34:00 Test Item Value Reference Range Interpretation Comments MCHC (test code = MCHC) 32.4 32.0-36.0 [facility] HospitalNxpjyepZKOOPECPXN6052-02-99 04:34:00 Test Item Value Reference Range Interpretation Comments RDW (test code = RDW) 16.8 11.5-14.5 [place] [address]-12-06 04:34:00 Test Item Value Reference Range Interpretation Comments Platelet (test code = Platelet) 178 133-450 [facility] HospitalZefoakpSMJLYMXEBA7796-69-32 04:34:00 Test Item Value Reference Range Interpretation Comments MPV (test code = MPV) 8.0 7.4-10.4 [facility] HospitalNfaailsHBBPURLYHS2308-58-65 04:34:00 Test Item Value Reference Range Interpretation Comments PT (test code = PT) 14.7 s 12.0-14.7 [place] [address]-12-06 04:34:00 Test Item Value Reference Range Interpretation Comments INR (test code = INR) 1.14 1 0.85-1.17 [facility] HospitalSmyfwfeBMTCVLRLHU8245-43-01 04:34:00 Test Item Value Reference Range Interpretation Comments PTT (test code = PTT) 31.2 s 22.9-35.8 [facility] HospitalVgtbssfSTJUIGGRFE6196-43-53 04:34:00 Test Item Value Reference Range Interpretation Comments Segs (test code = Segs) 73.9 45.0-75.0 [place] 638190-12-06 04:34:00 Test Item Value Reference Range Interpretation Comments Lymphocytes (test code = Lymphocytes) 11.0 20.0-40.0 [place] 638190-12-06 04:34:00 Test Item Value Reference Range Interpretation Comments Monocytes (test code = Monocytes) 13.6 2.0-12.0 [facility] HospitalDecmrbfTJVOHHVMYT2895-56-65 04:34:00 Test Item Value Reference Range Interpretation Comments Eosinophils (test code = 0.7 See_Comment [A utomated message] The Eosinophils) system which ge nerated this result tra nsmitted reference range : <=4.0. The reference r christiano was not used to int erpret this result as normal/abnormal . [facility] HospitalXpfkhlrCYVNUOBLIG1515-17-07 04:34:00 Test Item Value Reference Range Interpretation Comments Basophils (test code = 0.8 See_Comment [Aut omated message] The Basophils) system which ge nerated this result tra nsmitted reference range : <=1.0. The reference r christiano was not used to int erpret this result as normal/abnormal . [facility] HospitalWhzjmoxHEIFEYNQCY8623-54-80 04:34:00 Test Item Value Reference Range Interpretation Comments Neutrophils # (test code = Neutrophils 7.2 1.5-8.1 #) [place] 638190-12-06 04:34:00 Test Item Value Reference Range Interpretation Comments Lymphocytes # (test code = Lymphocytes 1.1 1.0-5.5 #) [place] [address]-12-06 04:34:00 Test Item Value Reference Range Interpretation Comments Monocytes # (test code 1.3 See_Comment [Aut omated message] The = Monocytes #) system which generated this result tra nsmitted reference range : <=0.8. The reference r christiano was not used to int erpret this result as normal/abnormal . [facility] HospitalTnhtrcvCBWWDOJRQV3161-83-37 04:34:00 Test Item Value Reference Range Interpretation Comments Eosinophils # (test code 0.1 See_Comment [A utomated message] The = Eosinophils #) system whic h generated this result tra nsmitted reference range : <=0.5. The reference r christiano was not used to int erpret this result as normal/abnormal . [facility] HospitalZsidypfZARQOUWQFU4393-41-72 04:34:00 Test Item Value Reference Range Interpretation Comments Basophils # (test code 0.1 See_Comment [Aut omated message] The = Basophils #) system which generated this result tra nsmitted reference range : <=0.2. The reference r christiano was not used to int erpret this result as normal/abnormal . [facility] [id number] 04:34:00 Test Item Value Reference Range Interpretation Comments Troponin-I (test code no gt See_Comment [Auto mated message] The = Troponin-I) system which g enerated this result transmit sheba reference range : <=0.40. The reference r christiano was not used to interpr et this result as edy l/abnormal. [facility] [employer] [id number] 04:34:00 Test Item Value Reference Range Interpretation Comments Glucose Lvl (test code = Glucose Lvl) 125 70-99 [facility] [id number] 04:34:00 Test Item Value Reference Range Interpretation Comments BUN (test code = BUN) 17 7-22 [facility] [id number] 04:34:00 Test Item Value Reference Range Interpretation Comments Creatinine Lvl (test code = Creatinine 1.51 0.50-1.40 Lvl) [facility] [id number] 04:34:00 Test Item Value Reference Range Interpretation Comments Sodium Lvl (test code = Sodium Lvl) 142 135-145 [facility] [id number] 04:34:00 Test Item Value Reference Range Interpretation Comments Potassium Lvl (test code = Potassium 4.0 3.5-5.1 Lvl) [facility] [id number] 04:34:00 Test Item Value Reference Range Interpretation Comments Chloride Lvl (test code = Chloride Lvl) 108 95-109 [facility]2020-12-06 04:34:00 Test Item Value Reference Range Interpretation Comments CO2 (test code = CO2) 30 24-32 [facility]2020-12-06 04:34:00 Test Item Value Reference Range Interpretation Comments Calcium Lvl (test code = Calcium Lvl) 7.8 8.5-10.5 [facility]2020-12-06 04:34:00 Test Item Value Reference Range Interpretation Comments AGAP (test code = AGAP) 8.0 10.0-20.0 [facility]2020-12-06 04:34:00 Test Item Value Reference Range Interpretation Comments eGFR (test code = eGFR) 33 [facility] HospitalQgwwttrWJNVTSECFI9989-67-37 04:34:00 Test Item Value Reference Range Interpretation Comments WBC X 10x3 (test code = WBC X 10x3) 9.7 3.7-10.4 [place] 638190-12-06 04:34:00 Test Item Value Reference Range Interpretation Comments RBC X 10x6 (test code = RBC X 10x6) 3.96 4.20-5.40 [facility] HospitalFmkgfrwXKDSDDILXW5720-59-01 04:34:00 Test Item Value Reference Range Interpretation Comments Hgb (test code = Hgb) 10.6 12.0-16.0 [place] 638190-12-06 04:34:00 Test Item Value Reference Range Interpretation Comments Hct (test code = Hct) 32.6 36.0-48.0 [place] 638190-12-06 04:34:00 Test Item Value Reference Range Interpretation Comments MCV (test code = MCV) 82.3 80.0-98.0 [place] 638190-12-06 04:34:00 Test Item Value Reference Range Interpretation Comments MCH (test code = MCH) 26.6 pg 27.0-31.0 [place] 638190-12-06 04:34:00 Test Item Value Reference Range Interpretation Comments MCHC (test code = MCHC) 32.4 32.0-36.0 [place] [address]-12-06 04:34:00 Test Item Value Reference Range Interpretation Comments RDW (test code = RDW) 16.8 11.5-14.5 [place] [address]-12-06 04:34:00 Test Item Value Reference Range Interpretation Comments Platelet (test code = Platelet) 178 133-450 [place] [address]-12-06 04:34:00 Test Item Value Reference Range Interpretation Comments MPV (test code = MPV) 8.0 7.4-10.4 [place] 638190-12-06 04:34:00 Test Item Value Reference Range Interpretation Comments PT (test code = PT) 14.7 s 12.0-14.7 [place] [address]-12-06 04:34:00 Test Item Value Reference Range Interpretation Comments INR (test code = INR) 1.14 1 0.85-1.17 [place] [address]-12-06 04:34:00 Test Item Value Reference Range Interpretation Comments PTT (test code = PTT) 31.2 s 22.9-35.8 [place] [address]-12-06 04:34:00 Test Item Value Reference Range Interpretation Comments Segs (test code = Segs) 73.9 45.0-75.0 [place] 638190-12-06 04:34:00 Test Item Value Reference Range Interpretation Comments Lymphocytes (test code = Lymphocytes) 11.0 20.0-40.0 [place] [address]-12-06 04:34:00 Test Item Value Reference Range Interpretation Comments Monocytes (test code = Monocytes) 13.6 2.0-12.0 [place] [address]-12-06 04:34:00 Test Item Value Reference Range Interpretation Comments Eosinophils (test code = 0.7 See_Comment [A utomated message] The Eosinophils) system which ge nerated this result tra nsmitted reference range : <=4.0. The reference r christiano was not used to int erpret this result as normal/abnormal . [place] [address]-12-06 04:34:00 Test Item Value Reference Range Interpretation Comments Basophils (test code = 0.8 See_Comment [Aut omated message] The Basophils) system which ge nerated this result tra nsmitted reference range : <=1.0. The reference r christiano was not used to int erpret this result as normal/abnormal . [place] [address]-12-06 04:34:00 Test Item Value Reference Range Interpretation Comments Neutrophils # (test code = Neutrophils 7.2 1.5-8.1 #) [facility]gztzumODXPTADQPN7000-[facility]-72 04:34:00 Test Item Value Reference Range Interpretation Comments Lymphocytes # (test code = Lymphocytes 1.1 1.0-5.5 #) [facility] [id number] 04:34:00 Test Item Value Reference Range Interpretation Comments Monocytes # (test code 1.3 See_Comment [Aut omated message] The = Monocytes #) system which generated this result tra nsmitted reference range : <=0.8. The reference r christiano was not used to int erpret this result as normal/abnormal . [facility] [id number] 04:34:00 Test Item Value Reference Range Interpretation Comments Troponin-I (test code no gt See_Comment [Auto mated message] The = Troponin-I) system which g enerated this result transmit sheba reference range : <=0.40. The reference r christiano was not used to interpr et this result as edy l/abnormal. [facility][id number] 04:34:00 Test Item Value Reference Range Interpretation Comments Eosinophils # (test code 0.1 See_Comment [A utomated message] The = Eosinophils #) system whic h generated this result tra nsmitted reference range : <=0.5. The reference r christiano was not used to int erpret this result as normal/abnormal . [facility] [id number] 04:34:00 Test Item Value Reference Range Interpretation Comments Glucose Lvl (test code = Glucose Lvl) 125 70-99 [facility] [id number] 04:34:00 Test Item Value Reference Range Interpretation Comments BUN (test code = BUN) 17 7-22 [facility] [id number] 04:34:00 Test Item Value Reference Range Interpretation Comments Creatinine Lvl (test code = Creatinine 1.51 0.50-1.40 Lvl) [facility]2020-12-06 04:34:00 Test Item Value Reference Range Interpretation Comments Sodium Lvl (test code = Sodium Lvl) 142 135-145 [facility] [id number] 04:34:00 Test Item Value Reference Range Interpretation Comments Potassium Lvl (test code = Potassium 4.0 3.5-5.1 Lvl) [facility]2020-12-06 04:34:00 Test Item Value Reference Range Interpretation Comments Chloride Lvl (test code = Chloride Lvl) 108 95-109 [place] 218490-12-06 04:34:00 Test Item Value Reference Range Interpretation Comments CO2 (test code = CO2) 30 24-32 [place] 218490-12-06 04:34:00 Test Item Value Reference Range Interpretation Comments Calcium Lvl (test code = Calcium Lvl) 7.8 8.5-10.5 [place] 218490-12-06 04:34:00 Test Item Value Reference Range Interpretation Comments AGAP (test code = AGAP) 8.0 10.0-20.0 [place] 218490-12-06 04:34:00 Test Item Value Reference Range Interpretation Comments eGFR (test code = eGFR) 33 [place] 638190-12-06 04:34:00 Test Item Value Reference Range Interpretation Comments Basophils # (test code 0.1 See_Comment [Aut omated message] The = Basophils #) system which generated this result tra nsmitted reference range : <=0.2. The reference r christiano was not used to int erpret this result as normal/abnormal . [place] 638190-12-06 04:34:00 Test Item Value Reference Range Interpretation Comments WBC X 10x3 (test code = WBC X 10x3) 9.7 3.7-10.4 [place] 638190-12-06 04:34:00 Test Item Value Reference Range Interpretation Comments RBC X 10x6 (test code = RBC X 10x6) 3.96 4.20-5.40 [place] [address]-12-06 04:34:00 Test Item Value Reference Range Interpretation Comments Hgb (test code = Hgb) 10.6 12.0-16.0 [place] [address]-12-06 04:34:00 Test Item Value Reference Range Interpretation Comments Hct (test code = Hct) 32.6 36.0-48.0 [place] [address]-12-06 04:34:00 Test Item Value Reference Range Interpretation Comments MCV (test code = MCV) 82.3 80.0-98.0 [place] [address]-12-06 04:34:00 Test Item Value Reference Range Interpretation Comments MCH (test code = MCH) 26.6 pg 27.0-31.0 [place] [address]-12-06 04:34:00 Test Item Value Reference Range Interpretation Comments MCHC (test code = MCHC) 32.4 32.0-36.0 [place] 638190-12-06 04:34:00 Test Item Value Reference Range Interpretation Comments RDW (test code = RDW) 16.8 11.5-14.5 [place] 638190-12-06 04:34:00 Test Item Value Reference Range Interpretation Comments Platelet (test code = Platelet) 178 133-450 [place] 638190-12-06 04:34:00 Test Item Value Reference Range Interpretation Comments MPV (test code = MPV) 8.0 7.4-10.4 [place] 638190-12-06 04:34:00 Test Item Value Reference Range Interpretation Comments PT (test code = PT) 14.7 s 12.0-14.7 [place] 638190-12-06 04:34:00 Test Item Value Reference Range Interpretation Comments INR (test code = INR) 1.14 1 0.85-1.17 [place] [address]-12-06 04:34:00 Test Item Value Reference Range Interpretation Comments PTT (test code = PTT) 31.2 s 22.9-35.8 [place] [address]-12-06 04:34:00 Test Item Value Reference Range Interpretation Comments Segs (test code = Segs) 73.9 45.0-75.0 [place] 638190-12-06 04:34:00 Test Item Value Reference Range Interpretation Comments Lymphocytes (test code = Lymphocytes) 11.0 20.0-40.0 [place] [address]-12-06 04:34:00 Test Item Value Reference Range Interpretation Comments Monocytes (test code = Monocytes) 13.6 2.0-12.0 [place] [address]-12-06 04:34:00 Test Item Value Reference Range Interpretation Comments Eosinophils (test code = 0.7 See_Comment [A utomated message] The Eosinophils) system which ge nerated this result tra nsmitted reference range : <=4.0. The reference r christiano was not used to int erpret this result as normal/abnormal . [id number] 04:34:00 Test Item Value Reference Range Interpretation Comments Basophils (test code = 0.8 See_Comment [Aut omated message] The Basophils) system which ge nerated this result tra nsmitted reference range : <=1.0. The reference r christiano was not used to int erpret this result as normal/abnormal . [facility] HospitalSsmqzyiGXEZXOUHXU4388-94-02 04:34:00 Test Item Value Reference Range Interpretation Comments Neutrophils # (test code = Neutrophils 7.2 1.5-8.1 #) [facility] HospitalOgfvungMLTHHLPDDE3834-40-39 04:34:00 Test Item Value Reference Range Interpretation Comments Lymphocytes # (test code = Lymphocytes 1.1 1.0-5.5 #) [facility] HospitalWhnndxoBEHLVAPTXK8813-90-54 04:34:00 Test Item Value Reference Range Interpretation Comments Monocytes # (test code 1.3 See_Comment [Aut omated message] The = Monocytes #) system which generated this result tra nsmitted reference range : <=0.8. The reference r christiano was not used to int erpret this result as normal/abnormal . [facility] HospitalWfrovwpZEYLMPVTXK0489-67-57 04:34:00 Test Item Value Reference Range Interpretation Comments Eosinophils # (test code 0.1 See_Comment [A utomated message] The = Eosinophils #) system whic h generated this result tra nsmitted reference range : <=0.5. The reference r christiano was not used to int erpret this result as normal/abnormal . [facility] HospitalYvexskwBLHAUGQTEZ6303-53-24 04:34:00 Test Item Value Reference Range Interpretation Comments Basophils # (test code 0.1 See_Comment [Aut omated message] The = Basophils #) system which generated this result tra nsmitted reference range : <=0.2. The reference r christiano was not used to int erpret this result as normal/abnormal . [facility] [id number] 04:34:00 Test Item Value Reference Range Interpretation Comments Troponin-I (test code no gt See_Comment [Auto mated message] The = Troponin-I) system which g enerated this result transmit sheba reference range : <=0.40. The reference r christiano was not used to interpr et this result as edy l/abnormal. [place] 218490-12-06 04:34:00 Test Item Value Reference Range Interpretation Comments Glucose Lvl (test code = Glucose Lvl) 125 70-99 [place] [address]-12-06 04:34:00 Test Item Value Reference Range Interpretation Comments BUN (test code = BUN) 17 7-22 [place] [address]-12-06 04:34:00 Test Item Value Reference Range Interpretation Comments Creatinine Lvl (test code = Creatinine 1.51 0.50-1.40 Lvl) [place] 218490-12-06 04:34:00 Test Item Value Reference Range Interpretation Comments Sodium Lvl (test code = Sodium Lvl) 142 135-145 [place] 218490-12-06 04:34:00 Test Item Value Reference Range Interpretation Comments Potassium Lvl (test code = Potassium 4.0 3.5-5.1 Lvl) [place] 218490-12-06 04:34:00 Test Item Value Reference Range Interpretation Comments Chloride Lvl (test code = Chloride Lvl) 108 95-109 [place] 218490-12-06 04:34:00 Test Item Value Reference Range Interpretation Comments CO2 (test code = CO2) 30 24-32 [place] 218490-12-06 04:34:00 Test Item Value Reference Range Interpretation Comments Calcium Lvl (test code = Calcium Lvl) 7.8 8.5-10.5 [place] 218490-12-06 04:34:00 Test Item Value Reference Range Interpretation Comments AGAP (test code = AGAP) 8.0 10.0-20.0 [place] [address]-12-06 04:34:00 Test Item Value Reference Range Interpretation Comments eGFR (test code = eGFR) 33 [place] 638190-12-06 04:34:00 Test Item Value Reference Range Interpretation Comments WBC X 10x3 (test code = WBC X 10x3) 9.7 3.7-10.4 [place] [address]-12-06 04:34:00 Test Item Value Reference Range Interpretation Comments RBC X 10x6 (test code = RBC X 10x6) 3.96 4.20-5.40 [place] 638190-12-06 04:34:00 Test Item Value Reference Range Interpretation Comments Hgb (test code = Hgb) 10.6 12.0-16.0 [facility] HospitalDdigwxbDGIAIZPKGK8457-41-45 04:34:00 Test Item Value Reference Range Interpretation Comments Hct (test code = Hct) 32.6 36.0-48.0 [facility] HospitalGhmadzaUPPDQKYIZT1383-38-67 04:34:00 Test Item Value Reference Range Interpretation Comments MCV (test code = MCV) 82.3 80.0-98.0 [place] 638190-12-06 04:34:00 Test Item Value Reference Range Interpretation Comments MCH (test code = MCH) 26.6 pg 27.0-31.0 [facility] HospitalPvhmheqZRIBNSOBEK7140-72-36 04:34:00 Test Item Value Reference Range Interpretation Comments MCHC (test code = MCHC) 32.4 32.0-36.0 [facility] HospitalBecinpbMEHCAUFOYM5524-68-05 04:34:00 Test Item Value Reference Range Interpretation Comments RDW (test code = RDW) 16.8 11.5-14.5 [facility] HospitalCemrouiZIGTWMJPSB1875-47-39 04:34:00 Test Item Value Reference Range Interpretation Comments Platelet (test code = Platelet) 178 133-450 [facility] HospitalBxzsgmnBSLXPSHHDE6945-61-24 04:34:00 Test Item Value Reference Range Interpretation Comments MPV (test code = MPV) 8.0 7.4-10.4 [facility] HospitalMarisivZEWWRLMJRE3250-53-08 04:34:00 Test Item Value Reference Range Interpretation Comments PT (test code = PT) 14.7 s 12.0-14.7 [place] 638190-12-06 04:34:00 Test Item Value Reference Range Interpretation Comments INR (test code = INR) 1.14 1 0.85-1.17 [place] [address]-12-06 04:34:00 Test Item Value Reference Range Interpretation Comments PTT (test code = PTT) 31.2 s 22.9-35.8 [place] [address]-12-06 04:34:00 Test Item Value Reference Range Interpretation Comments Segs (test code = Segs) 73.9 45.0-75.0 [place] [address]-12-06 04:34:00 Test Item Value Reference Range Interpretation Comments Lymphocytes (test code = Lymphocytes) 11.0 20.0-40.0 [place] 638190-12-06 04:34:00 Test Item Value Reference Range Interpretation Comments Monocytes (test code = Monocytes) 13.6 2.0-12.0 [place] 638190-12-06 04:34:00 Test Item Value Reference Range Interpretation Comments Eosinophils (test code = 0.7 See_Comment [A utomated message] The Eosinophils) system which ge nerated this result tra nsmitted reference range : <=4.0. The reference r christiano was not used to int erpret this result as normal/abnormal . [place] 638190-12-06 04:34:00 Test Item Value Reference Range Interpretation Comments Basophils (test code = 0.8 See_Comment [Aut omated message] The Basophils) system which ge nerated this result tra nsmitted reference range : <=1.0. The reference r christiano was not used to int erpret this result as normal/abnormal . [facility] HospitalNjjmvvjRRHCXLYGGA6250-62-94 04:34:00 Test Item Value Reference Range Interpretation Comments Neutrophils # (test code = Neutrophils 7.2 1.5-8.1 #) [place] 638190-12-06 04:34:00 Test Item Value Reference Range Interpretation Comments Lymphocytes # (test code = Lymphocytes 1.1 1.0-5.5 #) [facility] HospitalAzqshjrVVFADHCRUJ3192-82-04 04:34:00 Test Item Value Reference Range Interpretation Comments Monocytes # (test code 1.3 See_Comment [Aut omated message] The = Monocytes #) system which generated this result tra nsmitted reference range : <=0.8. The reference r christiano was not used to int erpret this result as normal/abnormal . [place] [address]-12-06 04:34:00 Test Item Value Reference Range Interpretation Comments Eosinophils # (test code 0.1 See_Comment [A utomated message] The = Eosinophils #) system whic h generated this result tra nsmitted reference range : <=0.5. The reference r christiano was not used to int erpret this result as normal/abnormal . [place] 638190-12-06 04:34:00 Test Item Value Reference Range Interpretation Comments Basophils # (test code 0.1 See_Comment [Aut omated message] The = Basophils #) system which generated this result tra nsmitted reference range : <=0.2. The reference r christiano was not used to int erpret this result as normal/abnormal . [facility] [id number] 04:34:00 Test Item Value Reference Range Interpretation Comments Troponin-I (test code no gt See_Comment [Auto mated message] The = Troponin-I) system which g enerated this result transmit sheba reference range : <=0.40. The reference r christiano was not used to interpr et this result as edy l/abnormal. [facility] [employer] [id number] 04:34:00 Test Item Value Reference Range Interpretation Comments Glucose Lvl (test code = Glucose Lvl) 125 70-99 [facility] [employer] [id number] 04:34:00 Test Item Value Reference Range Interpretation Comments BUN (test code = BUN) 17 7-22 [facility] [employer]2020-12-06 04:34:00 Test Item Value Reference Range Interpretation Comments Creatinine Lvl (test code = Creatinine 1.51 0.50-1.40 Lvl) [facility]2020-12-06 04:34:00 Test Item Value Reference Range Interpretation Comments Sodium Lvl (test code = Sodium Lvl) 142 135-145 [facility] [employer] [id number] 04:34:00 Test Item Value Reference Range Interpretation Comments Potassium Lvl (test code = Potassium 4.0 3.5-5.1 Lvl) [facility]2020-12-06 04:34:00 Test Item Value Reference Range Interpretation Comments Chloride Lvl (test code = Chloride Lvl) 108 95-109 [facility]2020-12-06 04:34:00 Test Item Value Reference Range Interpretation Comments CO2 (test code = CO2) 30 24-32 [facility] [employer] [id number] 04:34:00 Test Item Value Reference Range Interpretation Comments Calcium Lvl (test code = Calcium Lvl) 7.8 8.5-10.5 [facility]2020-12-06 04:34:00 Test Item Value Reference Range Interpretation Comments AGAP (test code = AGAP) 8.0 10.0-20.0 [facility]2020-12-06 04:34:00 Test Item Value Reference Range Interpretation Comments eGFR (test code = eGFR) 33 [facility] HospitalFzsregdCSBYWIAVNL6310-66-93 04:34:00 Test Item Value Reference Range Interpretation Comments WBC X 10x3 (test code = WBC X 10x3) 9.7 3.7-10.4 [facility]KlmuuuePYYSGDWJGO1019-25-84 04:34:00 Test Item Value Reference Range Interpretation Comments RBC X 10x6 (test code = RBC X 10x6) 3.96 4.20-5.40 [facility] HospitalOzayqvlEZJENHGZHZ5738-36-62 04:34:00 Test Item Value Reference Range Interpretation Comments Hgb (test code = Hgb) 10.6 12.0-16.0 [facility] HospitalPoqojetBVDOBHGQAZ8660-13-47 04:34:00 Test Item Value Reference Range Interpretation Comments Hct (test code = Hct) 32.6 36.0-48.0 [facility] HospitalGvngmxvCQQBQZQGNF0087-41-06 04:34:00 Test Item Value Reference Range Interpretation Comments MCV (test code = MCV) 82.3 80.0-98.0 [facility] HospitalIrelyqaDKQTEHIEQM6392-45-44 04:34:00 Test Item Value Reference Range Interpretation Comments MCH (test code = MCH) 26.6 pg 27.0-31.0 [facility]XdugfgeAFXXISSPPR7000-27-75 04:34:00 Test Item Value Reference Range Interpretation Comments MCHC (test code = MCHC) 32.4 32.0-36.0 [facility] HospitalNboueulOVASXVGLUA2390-16-40 04:34:00 Test Item Value Reference Range Interpretation Comments RDW (test code = RDW) 16.8 11.5-14.5 [facility]NurjdfgQOWWGHGQHO5181-78-11 04:34:00 Test Item Value Reference Range Interpretation Comments Platelet (test code = Platelet) 178 133-450 [facility] HospitalXsjxaqzDQOZFWMBLE1979-24-26 04:34:00 Test Item Value Reference Range Interpretation Comments MPV (test code = MPV) 8.0 7.4-10.4 [facility] HospitalNpibnzoDAIPDFHJWO2553-05-52 04:34:00 Test Item Value Reference Range Interpretation Comments PT (test code = PT) 14.7 s 12.0-14.7 [place] [address]-12-06 04:34:00 Test Item Value Reference Range Interpretation Comments INR (test code = INR) 1.14 1 0.85-1.17 [place] [address]-12-06 04:34:00 Test Item Value Reference Range Interpretation Comments PTT (test code = PTT) 31.2 s 22.9-35.8 [place] 638190-12-06 04:34:00 Test Item Value Reference Range Interpretation Comments Segs (test code = Segs) 73.9 45.0-75.0 [place] 638190-12-06 04:34:00 Test Item Value Reference Range Interpretation Comments Lymphocytes (test code = Lymphocytes) 11.0 20.0-40.0 [place] [address]-12-06 04:34:00 Test Item Value Reference Range Interpretation Comments Monocytes (test code = Monocytes) 13.6 2.0-12.0 [place] [address]-12-06 04:34:00 Test Item Value Reference Range Interpretation Comments Eosinophils (test code = 0.7 See_Comment [A utomated message] The Eosinophils) system which ge nerated this result tra nsmitted reference range : <=4.0. The reference r christiano was not used to int erpret this result as normal/abnormal . [place] 638190-12-06 04:34:00 Test Item Value Reference Range Interpretation Comments Basophils (test code = 0.8 See_Comment [Aut omated message] The Basophils) system which ge nerated this result tra nsmitted reference range : <=1.0. The reference r christiano was not used to int erpret this result as normal/abnormal . [facility] HospitalIzhgnqsDXZYXSJJWK1427-05-37 04:34:00 Test Item Value Reference Range Interpretation Comments Neutrophils # (test code = Neutrophils 7.2 1.5-8.1 #) [place] 638190-12-06 04:34:00 Test Item Value Reference Range Interpretation Comments Lymphocytes # (test code = Lymphocytes 1.1 1.0-5.5 #) [place] [address]-12-06 04:34:00 Test Item Value Reference Range Interpretation Comments Monocytes # (test code 1.3 See_Comment [Aut omated message] The = Monocytes #) system which generated this result tra nsmitted reference range : <=0.8. The reference r christiano was not used to int erpret this result as normal/abnormal . [facility] HospitalOdogfyxPVLBWRDRUZ3791-69-82 04:34:00 Test Item Value Reference Range Interpretation Comments Eosinophils # (test code 0.1 See_Comment [A utomated message] The = Eosinophils #) system whic h generated this result tra nsmitted reference range : <=0.5. The reference r christiano was not used to int erpret this result as normal/abnormal . [facility] HospitalPlkfeykZOPQLKARFZ7001-53-92 04:34:00 Test Item Value Reference Range Interpretation Comments Basophils # (test code 0.1 See_Comment [Aut omated message] The = Basophils #) system which generated this result tra nsmitted reference range : <=0.2. The reference r christiano was not used to int erpret this result as normal/abnormal . [facility] ERQNJPA6373-43-94 04:34:00 Test Item Value Reference Range Interpretation Comments Troponin-I (test code no gt See_Comment [Auto mated message] The = Troponin-I) system which g enerated this result transmit [place]ba reference range : <=0.40. The reference r christiano was not used to interpr et this result as edy l/abnormal. [facility]TV[facility] [id number] 04:34:00 Test Item Value Reference Range Interpretation Comments Glucose Lvl (test code = Glucose Lvl) 125 70-99 [facility] [id number] 04:34:00 Test Item Value Reference Range Interpretation Comments BUN (test code = BUN) 17 7-22 [facility] [id number] 04:34:00 Test Item Value Reference Range Interpretation Comments Creatinine Lvl (test code = Creatinine 1.51 0.50-1.40 Lvl) [facility]TV[facility] [id number] 04:34:00 Test Item Value Reference Range Interpretation Comments Sodium Lvl (test code = Sodium Lvl) 142 135-145 [facility]TV[facility] [id number] 04:34:00 Test Item Value Reference Range Interpretation Comments Potassium Lvl (test code = Potassium 4.0 3.5-5.1 Lvl) [facility] [id number] 04:34:00 Test Item Value Reference Range Interpretation Comments Chloride Lvl (test code = Chloride Lvl) 108 95-109 [facility]2020-12-06 04:34:00 Test Item Value Reference Range Interpretation Comments CO2 (test code = CO2) 30 24-32 [place] 218490-12-06 04:34:00 Test Item Value Reference Range Interpretation Comments Calcium Lvl (test code = Calcium Lvl) 7.8 8.5-10.5 [facility]2020-12-06 04:34:00 Test Item Value Reference Range Interpretation Comments AGAP (test code = AGAP) 8.0 10.0-20.0 [facility]2020-12-06 04:34:00 Test Item Value Reference Range Interpretation Comments eGFR (test code = eGFR) 33 [facility] HospitalOwltqlhIINRDTJNSK1736-76-72 04:34:00 Test Item Value Reference Range Interpretation Comments WBC X 10x3 (test code = WBC X 10x3) 9.7 3.7-10.4 [place] 638190-12-06 04:34:00 Test Item Value Reference Range Interpretation Comments RBC X 10x6 (test code = RBC X 10x6) 3.96 4.20-5.40 [place] 638190-12-06 04:34:00 Test Item Value Reference Range Interpretation Comments Hgb (test code = Hgb) 10.6 12.0-16.0 [place] 638190-12-06 04:34:00 Test Item Value Reference Range Interpretation Comments Hct (test code = Hct) 32.6 36.0-48.0 [place] 638190-12-06 04:34:00 Test Item Value Reference Range Interpretation Comments MCV (test code = MCV) 82.3 80.0-98.0 [place] [address]-12-06 04:34:00 Test Item Value Reference Range Interpretation Comments MCH (test code = MCH) 26.6 pg 27.0-31.0 [place] 638190-12-06 04:34:00 Test Item Value Reference Range Interpretation Comments MCHC (test code = MCHC) 32.4 32.0-36.0 [place] 638190-12-06 04:34:00 Test Item Value Reference Range Interpretation Comments RDW (test code = RDW) 16.8 11.5-14.5 [place] [address]-12-06 04:34:00 Test Item Value Reference Range Interpretation Comments Platelet (test code = Platelet) 178 133-450 [place] [address]-12-06 04:34:00 Test Item Value Reference Range Interpretation Comments MPV (test code = MPV) 8.0 7.4-10.4 [place] [address]-12-06 04:34:00 Test Item Value Reference Range Interpretation Comments PT (test code = PT) 14.7 s 12.0-14.7 [place] [address]-12-06 04:34:00 Test Item Value Reference Range Interpretation Comments INR (test code = INR) 1.14 1 0.85-1.17 [place] [address]-12-06 04:34:00 Test Item Value Reference Range Interpretation Comments PTT (test code = PTT) 31.2 s 22.9-35.8 [place] [address]-12-06 04:34:00 Test Item Value Reference Range Interpretation Comments Segs (test code = Segs) 73.9 45.0-75.0 [place] [address]-12-06 04:34:00 Test Item Value Reference Range Interpretation Comments Lymphocytes (test code = Lymphocytes) 11.0 20.0-40.0 [place] [address]-12-06 04:34:00 Test Item Value Reference Range Interpretation Comments Monocytes (test code = Monocytes) 13.6 2.0-12.0 [place] [address]-12-06 04:34:00 Test Item Value Reference Range Interpretation Comments Eosinophils (test code = 0.7 See_Comment [A utomated message] The Eosinophils) system which ge nerated this result tra nsmitted reference range : <=4.0. The reference r christiano was not used to int erpret this result as normal/abnormal . [place] [address]-12-06 04:34:00 Test Item Value Reference Range Interpretation Comments Basophils (test code = 0.8 See_Comment [Aut omated message] The Basophils) system which ge nerated this result tra nsmitted reference range : <=1.0. The reference r christiano was not used to int erpret this result as normal/abnormal . [place] [address]-12-06 04:34:00 Test Item Value Reference Range Interpretation Comments Neutrophils # (test code = Neutrophils 7.2 1.5-8.1 #) [facility] 04:34:00 Test Item Value Reference Range Interpretation Comments Lymphocytes # (test code = Lymphocytes 1.1 1.0-5.5 #) [facility] 04:34:00 Test Item Value Reference Range Interpretation Comments Monocytes # (test code 1.3 See_Comment [Aut omated message] The = Monocytes #) system which generated this result tra nsmitted reference range : <=0.8. The reference r christiano was not used to int erpret this result as normal/abnormal . [facility]VldbuzjDQAXNHXIQG4254-86-56 04:34:00 Test Item Value Reference Range Interpretation Comments Eosinophils # (test code 0.1 See_Comment [A utomated message] The = Eosinophils #) system whic h generated this result tra nsmitted reference range : <=0.5. The reference r christiano was not used to int erpret this result as normal/abnormal . [facility] HospitalMeqwrziZHBUGTLLCD7118-23-63 04:34:00 Test Item Value Reference Range Interpretation Comments Basophils # (test code 0.1 See_Comment [Aut omated message] The = Basophils #) system which generated this result tra nsmitted reference range : <=0.2. The reference r christiano was not used to int erpret this result as normal/abnormal . [facility] [id number] 04:34:00 Test Item Value Reference Range Interpretation Comments Troponin-I (test code no gt See_Comment [Auto mated message] The = Troponin-I) system which g enerated this result transmit sheba reference range : <=0.40. The reference r christiano was not used to interpr et this result as edy l/abnormal. [facility] [id number] 04:34:00 Test Item Value Reference Range Interpretation Comments Glucose Lvl (test code = Glucose Lvl) 125 70-99 [facility]2020-12-06 04:34:00 Test Item Value Reference Range Interpretation Comments BUN (test code = BUN) 17 7-22 [facility] HospitalOn[facility] [id number] 04:34:00 Test Item Value Reference Range Interpretation Comments Creatinine Lvl (test code = Creatinine 1.51 0.50-1.40 Lvl) [place] 218490-12-06 04:34:00 Test Item Value Reference Range Interpretation Comments Sodium Lvl (test code = Sodium Lvl) 142 135-145 [place] 218490-12-06 04:34:00 Test Item Value Reference Range Interpretation Comments Potassium Lvl (test code = Potassium 4.0 3.5-5.1 Lvl) [place] 218490-12-06 04:34:00 Test Item Value Reference Range Interpretation Comments Chloride Lvl (test code = Chloride Lvl) 108 95-109 [place] 218490-12-06 04:34:00 Test Item Value Reference Range Interpretation Comments CO2 (test code = CO2) 30 24-32 [place] 218490-12-06 04:34:00 Test Item Value Reference Range Interpretation Comments Calcium Lvl (test code = Calcium Lvl) 7.8 8.5-10.5 [place] 218490-12-06 04:34:00 Test Item Value Reference Range Interpretation Comments AGAP (test code = AGAP) 8.0 10.0-20.0 [place] 218490-12-06 04:34:00 Test Item Value Reference Range Interpretation Comments eGFR (test code = eGFR) 33 [place] [address]-12-06 04:34:00 Test Item Value Reference Range Interpretation Comments WBC X 10x3 (test code = WBC X 10x3) 9.7 3.7-10.4 [place] [address]-12-06 04:34:00 Test Item Value Reference Range Interpretation Comments RBC X 10x6 (test code = RBC X 10x6) 3.96 4.20-5.40 [place] [address]-12-06 04:34:00 Test Item Value Reference Range Interpretation Comments Hgb (test code = Hgb) 10.6 12.0-16.0 [place] [address]-12-06 04:34:00 Test Item Value Reference Range Interpretation Comments Hct (test code = Hct) 32.6 36.0-48.[address]12-06 04:34:00 Test Item Value Reference Range Interpretation Comments MCV (test code = MCV) 82.3 80.0-98.0 [place] [address]-12-06 04:34:00 Test Item Value Reference Range Interpretation Comments MCH (test code = MCH) 26.6 pg 27.0-31.0 [place] 638190-12-06 04:34:00 Test Item Value Reference Range Interpretation Comments MCHC (test code = MCHC) 32.4 32.0-36.0 [facility]OpkpvuhFLHJODXRJA4479-16-29 04:34:00 Test Item Value Reference Range Interpretation Comments RDW (test code = RDW) 16.8 11.5-14.5 [place] 638190-12-06 04:34:00 Test Item Value Reference Range Interpretation Comments Platelet (test code = Platelet) 178 133-450 [facility] HospitalCiswytfIOGAKPZZNA8873-31-76 04:34:00 Test Item Value Reference Range Interpretation Comments MPV (test code = MPV) 8.0 7.4-10.4 [place] 638190-12-06 04:34:00 Test Item Value Reference Range Interpretation Comments PT (test code = PT) 14.7 s 12.0-14.7 [place] [address]-12-06 04:34:00 Test Item Value Reference Range Interpretation Comments INR (test code = INR) 1.14 1 0.85-1.17 [place] 638190-12-06 04:34:00 Test Item Value Reference Range Interpretation Comments PTT (test code = PTT) 31.2 s 22.9-35.8 [place] [address]-12-06 04:34:00 Test Item Value Reference Range Interpretation Comments Segs (test code = Segs) 73.9 45.0-75.0 [place] 638190-12-06 04:34:00 Test Item Value Reference Range Interpretation Comments Lymphocytes (test code = Lymphocytes) 11.0 20.0-40.0 [place] [address]-12-06 04:34:00 Test Item Value Reference Range Interpretation Comments Monocytes (test code = Monocytes) 13.6 2.0-12.0 [place] 638190-12-06 04:34:00 Test Item Value Reference Range Interpretation Comments Eosinophils (test code = 0.7 See_Comment [A utomated message] The Eosinophils) system which ge nerated this result tra nsmitted reference range : <=4.0. The reference r christiano was not used to int erpret this result as normal/abnormal . [facility]UxqkqatOCJCZBNDAP1151-83-90 04:34:00 Test Item Value Reference Range Interpretation Comments Basophils (test code = 0.8 See_Comment [Aut omated message] The Basophils) system which ge nerated this result tra nsmitted reference range : <=1.0. The reference r christiano was not used to int erpret this result as normal/abnormal . [facility] HospitalBkosyvkEBSZHLHIWY2165-77-61 04:34:00 Test Item Value Reference Range Interpretation Comments Neutrophils # (test code = Neutrophils 7.2 1.5-8.1 #) [facility]NmaqtrdNMTBOPOGPH7964-56-95 04:34:00 Test Item Value Reference Range Interpretation Comments Lymphocytes # (test code = Lymphocytes 1.1 1.0-5.5 #) [facility]UamugvuJJXAXMICBT8541-60-27 04:34:00 Test Item Value Reference Range Interpretation Comments Monocytes # (test code 1.3 See_Comment [Aut omated message] The = Monocytes #) system which generated this result tra nsmitted reference range : <=0.8. The reference r christiano was not used to int erpret this result as normal/abnormal . [facility] HospitalRsygbphYPUKCIKLVM3163-57-42 04:34:00 Test Item Value Reference Range Interpretation Comments Eosinophils # (test code 0.1 See_Comment [A utomated message] The = Eosinophils #) system whic h generated this result tra nsmitted reference range : <=0.5. The reference r christiano was not used to int erpret this result as normal/abnormal . [facility] HospitalByobihdIAWBSAIOVA9038-63-33 04:34:00 Test Item Value Reference Range Interpretation Comments Basophils # (test code 0.1 See_Comment [Aut omated message] The = Basophils #) system which generated this result tra nsmitted reference range : <=0.2. The reference r christiano was not used to int erpret this result as normal/abnormal . [facility] [id number] 04:34:00 Test Item Value Reference Range Interpretation Comments Troponin-I (test code no gt See_Comment [Auto mated message] The = Troponin-I) system which g enerated this result transmit sheba reference range : <=0.40. The reference r christiano was not used to interpr et this result as edy l/abnormal. [place] 218490-12-06 04:34:00 Test Item Value Reference Range Interpretation Comments Glucose Lvl (test code = Glucose Lvl) 125 70-99 [place] [address]-12-06 04:34:00 Test Item Value Reference Range Interpretation Comments BUN (test code = BUN) 17 7-22 [place] 218490-12-06 04:34:00 Test Item Value Reference Range Interpretation Comments Creatinine Lvl (test code = Creatinine 1.51 0.50-1.40 Lvl) [place] 218490-12-06 04:34:00 Test Item Value Reference Range Interpretation Comments Sodium Lvl (test code = Sodium Lvl) 142 135-145 [place] [address]-12-06 04:34:00 Test Item Value Reference Range Interpretation Comments Potassium Lvl (test code = Potassium 4.0 3.5-5.1 Lvl) [place] 218490-12-06 04:34:00 Test Item Value Reference Range Interpretation Comments Chloride Lvl (test code = Chloride Lvl) 108 95-109 [place] 218490-12-06 04:34:00 Test Item Value Reference Range Interpretation Comments CO2 (test code = CO2) 30 24-32 [place] 218490-12-06 04:34:00 Test Item Value Reference Range Interpretation Comments Calcium Lvl (test code = Calcium Lvl) 7.8 8.5-10.5 [place] 218490-12-06 04:34:00 Test Item Value Reference Range Interpretation Comments AGAP (test code = AGAP) 8.0 10.0-20.0 [place] 218490-12-06 04:34:00 Test Item Value Reference Range Interpretation Comments eGFR (test code = eGFR) 33 [place] 638190-12-06 04:34:00 Test Item Value Reference Range Interpretation Comments WBC X 10x3 (test code = WBC X 10x3) 9.7 3.7-10.4 [place] [address]-12-06 04:34:00 Test Item Value Reference Range Interpretation Comments RBC X 10x6 (test code = RBC X 10x6) 3.96 4.20-5.40 [facility] HospitalVhekravHFJIGMRXRP1619-32-07 04:34:00 Test Item Value Reference Range Interpretation Comments Hgb (test code = Hgb) 10.6 12.0-16.0 [facility] HospitalBbkbryoWLBSFTIWOX7453-14-67 04:34:00 Test Item Value Reference Range Interpretation Comments Hct (test code = Hct) 32.6 36.0-48.0 [facility] HospitalSutuukfFDCCDLAUXY3569-48-27 04:34:00 Test Item Value Reference Range Interpretation Comments MCV (test code = MCV) 82.3 80.0-98.0 [facility] HospitalZpwuhxjHZXWPFLSJR1819-72-04 04:34:00 Test Item Value Reference Range Interpretation Comments MCH (test code = MCH) 26.6 pg 27.0-31.0 [facility] HospitalEnezhxkDMYQPCYILD0465-02-42 04:34:00 Test Item Value Reference Range Interpretation Comments MCHC (test code = MCHC) 32.4 32.0-36.0 [facility] HospitalCclvmrjMXNEXOODDM7859-56-04 04:34:00 Test Item Value Reference Range Interpretation Comments RDW (test code = RDW) 16.8 11.5-14.5 [facility] HospitalZncywafGAMPEFAHVR7622-14-65 04:34:00 Test Item Value Reference Range Interpretation Comments Platelet (test code = Platelet) 178 133-450 [facility] HospitalIezrszwFVPIMFBXOL2228-91-38 04:34:00 Test Item Value Reference Range Interpretation Comments MPV (test code = MPV) 8.0 7.4-10.4 [facility] HospitalOkptqgcZERHSUAHSI5090-67-44 04:34:00 Test Item Value Reference Range Interpretation Comments PT (test code = PT) 14.7 s 12.0-14.7 [place] [address]-12-06 04:34:00 Test Item Value Reference Range Interpretation Comments INR (test code = INR) 1.14 1 0.85-1.17 [place] 638190-12-06 04:34:00 Test Item Value Reference Range Interpretation Comments PTT (test code = PTT) 31.2 s 22.9-35.8 [place] 638190-12-06 04:34:00 Test Item Value Reference Range Interpretation Comments Segs (test code = Segs) 73.9 45.0-75.[address]12-06 04:34:00 Test Item Value Reference Range Interpretation Comments Lymphocytes (test code = Lymphocytes) 11.0 20.0-40.0 [place] 638190-12-06 04:34:00 Test Item Value Reference Range Interpretation Comments Monocytes (test code = Monocytes) 13.6 2.0-12.0 [facility] HospitalOopuwrvXDWAEUULLY6466-80-34 04:34:00 Test Item Value Reference Range Interpretation Comments Eosinophils (test code = 0.7 See_Comment [A utomated message] The Eosinophils) system which ge nerated this result tra nsmitted reference range : <=4.0. The reference r christiano was not used to int erpret this result as normal/abnormal . [place] 638190-12-06 04:34:00 Test Item Value Reference Range Interpretation Comments Basophils (test code = 0.8 See_Comment [Aut omated message] The Basophils) system which ge nerated this result tra nsmitted reference range : <=1.0. The reference r christiano was not used to int erpret this result as normal/abnormal . [facility] HospitalIriowziBCXKINMPGF7547-28-22 04:34:00 Test Item Value Reference Range Interpretation Comments Neutrophils # (test code = Neutrophils 7.2 1.5-8.1 #) [place] 638190-12-06 04:34:00 Test Item Value Reference Range Interpretation Comments Lymphocytes # (test code = Lymphocytes 1.1 1.0-5.5 #) [place] 638190-12-06 04:34:00 Test Item Value Reference Range Interpretation Comments Monocytes # (test code 1.3 See_Comment [Aut omated message] The = Monocytes #) system which generated this result tra nsmitted reference range : <=0.8. The reference r christiano was not used to int erpret this result as normal/abnormal . [place] 638190-12-06 04:34:00 Test Item Value Reference Range Interpretation Comments Eosinophils # (test code 0.1 See_Comment [A utomated message] The = Eosinophils #) system whic h generated this result tra nsmitted reference range : <=0.5. The reference r christiano was not used to int erpret this result as normal/abnormal . [place] 638190-12-06 04:34:00 Test Item Value Reference Range Interpretation Comments Basophils # (test code 0.1 See_Comment [Aut omated message] The = Basophils #) system which generated this result tra nsmitted reference range : <=0.2. The reference r christiano was not used to int erpret this result as normal/abnormal . [facility] SHOULDER 2+ VW [id number] 17:54:27 Comminuted distal clavicle fracture. EXAM: XR SHOULDER 2+ VW RIGHT HISTORY: shoulder pain COMPARISON: None. FINDINGS: A comminuted fracture of the distal clavicle is seen. There is resultantmild widening of the acromioclavicular joint. Alignment is maintained atthe glenohumeral joint which exhibits osteoarthritic changes manifested byjoint space narrowing and osteophytosis. Osteopenia is suggested.At herosclerotic calcifications are present in the aortic arch. [facility], [facility]28[facility] 12:55 PM CDTEXAM:XR SHOULDER 2+ VW RIGHTHISTORY:shoulder pain COMPARISON:None.FINDINGS: A comminuted fracture of the distal clavicle is seen. There is resultantmild widening of the acromioclavicular joint. Alignment is maintained atthe glenohumeral joint which exhibits osteoarthritic changes manifested byjoint space narrowing and osteophytosis. Osteopenia is suggested.Atherosclerotic calcifications are present in the aortic arch.IMPRESSIONComminuted distal clavicle fracture. [facility] [id number] 17:53:09 No acute bony abnormality. EXAM: XR FOREARM 2 VW RIGHT HISTORY: right arm pain COMPARISON: None. FINDINGS: Osteopenia is noted. 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 Mild osteoarthritic changes are present at theelbow. No acute fracture or dislocation is seen. [facility] - 06/28/2020 12:54 PM CDTEXAM:XR FOREARM 2 VW RIGHTHISTORY:right arm pain COMPARISON:None.FINDINGS: Osteopenia is noted. 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 Mild osteoarthritic changes are present at theelbow. No acute fracture or dislocation is seen.IMPRESSIONNo acute bony abnormality.[facility] Notes Date/Time Note Provider Source 2022-11-27 EXAM: MRI CERVICAL SPINE WITHOUT CONTRAST [facility] 05:40:00-00:00 DATE: 11/27/2022 Center INDICATION: - [...] canal narrowing at C 6-7. 2022-11-27 EXAM: MRI CERVICAL SPINE WITHOUT CONTRAST [facility] 05:40:00-00:00 DATE: 11/27/2022 Center INDICATION: - [...] 2022-11-27 EXAM: CT BRAIN WITHOUT CONTRAST [facility] 01:29:43-00:00 DATE: 11/27/2022 Center INDICATION: - [...] by Urbano Ashton MD 2022-11-27 EXAM: CT BRAIN WITHOUT CONTRAST [facility] 01:29:43-00:00 DATE: 11/27/2022 Center INDICATION: - [...] EXAM: CT CERVICAL SPINE WITHOUT CONTRAST [facility] 00:49:03-00:00 DATE: 11/27/2022 0:49 Center INDICATION: Status post fall , pain after trauma. Following trauma transfer for higher level of care request for outside film interpretation CT cervical spine without contrast performed 11/26/2022 at 2044 hours from [facility] COMPARISON: None. TECHNIQUE: Volumetric CT of the cervical spine is acquired without contrast. Axial, coronal and sagittal images are provided. IV contrast: None. DLP: Refer to CT protocol form [place] SECTION: ER FINDINGS: The spine is imaged from the skull base to the l evel of T2/T3. Mixing Operator: Noncontributory. Bones: There is generalized decreased bone [...] are present. 6. Agree with outside report. 2022-11-27 EXAM: CT CERVICAL SPINE WITHOUT CONTRAST [facility] 00:49:03-00:00 DATE: 11/27/2022 0:49 Center INDICATION: Status post fall , pain after trauma. Following trauma transfer for higher level of care request for outside film interpretation CT cervical spine without contrast performed 11/26/2022 at 2044 hours from [facility] COMPARISON: None. TECHNIQUE: Volumetric CT of the cervical spine is acquired without contrast. Axial, coronal and sagittal images are provided. IV contrast: None. DLP: Refer to CT protocol form [place] SECTION: ER FINDINGS: The spine is imaged from the skull base to the l evel of T2/T3. Mixing Operator: Noncontributory. Bones: There is generalized decreased bone [...] 2022-11-21 EXAM: XR RIGHT KNEE 3 VIEWS [facility] [employer] [facility] 06:10:00-00:00 DATE: 11/21/2022 6:10 Center INDICATION: - [...] the patella. [place] SECTION: ER 2022-11-21 EXAM: XR RIGHT KNEE 3 VIEWS [facility] 06:10:00-00:00 DATE: 11/21/2022 6:10 Center INDICATION: [...] 2022-11-21 EXAM: CT BRAIN WITHOUT CONTRAST [facility] 05:13:56-00:00 DATE: 11/21/2022 5:16 AM Center [...] along the tentorium. No significant midline shift. 2022-11-21 EXAM: CT BRAIN WITHOUT CONTRAST [facility] 05:13:56-00:00 DATE: 11/21/2022 5:16 AM Center [...] EXAM: MRI CERVICAL SPINE WITHOUT CONTRAST [facility] 16:36:00-00:00 DATE: 09/05/2020 405 PM [facility] INDICATION: 79 years old Fem [...] stable fr om prior study. 2020-09-05 EXAM: MRI CERVICAL SPINE WITHOUT CONTRAST [facility] 16:36:00-00:00 DATE: 09/05/2020 405 PM [facility] INDICATION: 79 years old Fem [...] 2020-09-05 EXAM: CT CHEST WITH CONTRAST [facility] 06:30:20-00:00 EXAM: CT ABDOMEN AND PELVIS WITH CONTRAST [place] DATE: 09/05/2020 5:12 [employer] [employer] INDICATION: - eval for T and L spine fx given C spine fx COMPARISON: None TECHNIQUE: Volumetric CT of the chest, abdomen and pelvis is acquired following intravenous administration of contrast. Axial, coronal and sagittal images are provided. IV contrast: 100 mL Omnipaque 350 Oral contrast: None. DLP: 3034 mGy-cm [place] SECTION: ER FINDINGS: Mixing Operator: Noncontributory. Lines and tubes: None. Lower Neck: [...] diverticulosis without acute divertic ulitis. 2020-09-05 EXAM: CT CHEST WITH CONTRAST [facility] 06:30:20-00:00 EXAM: CT ABDOMEN AND PELVIS WITH CONTRAST [place] DATE: 09/05/2020 5:12 [employer] [employer] INDICATION: - eval for T and L spine fx given C spine fx COMPARISON: None TECHNIQUE: Volumetric CT of the chest, abdomen and pelvis is acquired following intravenous administration of contrast. Axial, coronal and sagittal images are provided. IV contrast: 100 mL Omnipaque 350 Oral contrast: None. DLP: 3034 mGy-cm [place] SECTION: ER FINDINGS: Mixing Operator: Noncontributory. Lines and tubes: None. Lower Neck: [...] VIEW [facility] 06:08:00-00:00 DATE: 09/05/2020 6:14 [facility] INDICATION: - preop COMPARISON: None. TECHNIQUE: [...] fracture. [place] SECTION: ER 2020-09-05 EXAM: XR CHEST 1 VIEW [facility] 06:08:00-00:00 DATE: 09/05/2020 6:14 [facility] Center INDICATION: - preop COMPARISON: None. TECHNIQUE: [...] distal right clav icular fracture. [place] SECTION: 2020-09-05 EXAM: XR RIGHT WRIST 3 VIEWS [facility] 03:25:00-00:00 DATE: 09/05/2020 3:25 [facility] Center INDICATION: - splinted, concern for fracture [...] no definite fracture is identified. [place] SECTION: 2020-09-05 EXAM: XR RIGHT WRIST 3 VIEWS [facility] 03:25:00-00:00 DATE: 09/05/2020 3:25 [facility] Center INDICATION: - splinted, concern for fracture [...] [facility] CERVICAL SPINE WITHOUT CONTRAST. [facility] 00:50:17-00:00 DATE: 09/04/2020 10:05 [address] [address] INDICATION: - concern for ligamentous [...] facets. 4. Lower cervical spondylosi s causing gski-ac-dblxnjqr canal stenosis at C5-C6 and C6-C7. There is no cord signal abnormality identified. 2020-09-05 EXAM: [facility]NET[facility] CERVICAL SPINE WITHOUT CONTRAST. [facility] 00:50:17-00:00 DATE: 09/04/2020 10:05 [address] [address] INDICATION: - concern for ligamentous [...] facets. 4. Lower cervical spondylosi s causing tybp-yj-rtybjlau canal stenosis at C5-C6 and C6-C7. There is no cord signal abnormality identified. 2020-09-04 [facility] 21:38:00-00:00 EXAMINATION: CT head without contrast Center DATE: 09/04/2020 INDICATION: Concussion. Fall. FINDINGS: Noncontrast CT images of the head are performed at an outside institution and submitted for reinterpretation following transfer. There is no intracranial hemorrhage or other bra in injury. The skull and sinuses are intact. IMPRESSION: No acute intracranial abnormality. [place] SECTION: Neuro 2020-09-04 [facility] 21:38:00-00:00 EXAMINATION: CT head without contrast Center DATE: 09/04/2020 INDICATION: Concussion. Fall. FINDINGS: Noncontrast CT images of the head are performed at an outside institution and submitted for reinterpretation following transfer. There is no intracranial hemorrhage or other bra in injury. The skull and sinuses are intact.
[2023-05-04] MEDS ORDERED: NA CHLORIDE 0.9% 500 ML ONE (10:41)
[2023-05-04] MEDS ORDERED: TRAMADOL HCL 50 MG TAB ONE (10:43)
--- NOTE | 2023-05-04 11:12 | ER ---
Nurse's Notes [facility] Name: Radha Bentley Age: 82 yrs Sex: Female : 1940 Arrival Date: 05/04/2023 Time: 09:16 Bed 7 Private MD: Diagnosis: Chest pain, unspecified-chest wall pain Presentation: 05/04 09:30 Chief complaint: Patient states: Difficulty breathing that began after a fall a few ss weeks ago. Pt reports her XRAYs did not show a fracture, but she is worried she may have an infection as her pain has increased and SOB has worsened since yesterday. Coronavirus screen: Client denies travel out of the [place] in the last 14 days. Ebola Screen: Patient denies exposure to infectious person. Patient denies travel to an Ebola-affected area in the 21 days before illness onset. Initial Sepsis Screen: Does the patient meet any 2 criteria? No. Patient's initial sepsis screen is negative. Does the patient have a suspected source of infection? No. Patient's initial sepsis screen is negative. Risk Assessment: Do you want to hurt yourself or someone else? Patient reports no desire to harm self or others. Onset of symptoms is unknown. 09:30 Method Of Arrival: Wheelchair ss 09:30 Acuity: VAIBHAV 3 ss Historical: - Allergies: 09:30 Avelox; ss 09:30 Band-aid adhesive; ss - PMHx: 09:30 ADD/ADHD; COPD; Heart Murmur; Hyperlipidemia; Hypertension; Hypothyroidism; kidney ss disease; - PSHx: 09:30 bilateral knee replacement; breast reduction; Cholecystectomy; Shoulder replacment; ss - Immunization history:: Client reports receiving the 2nd dose of the Covid vaccine. - Social history:: Smoking status: Patient denies any tobacco usage or history of. Screenin:30 [facility] ED Fall Risk Assessment (Adult) History of falling in the last 3 months, ko1 including since admission No falls in past 3 months (0 pts) Confusion or Disorientation No (0 pts) Intoxicated or Sedated No (0 pts) Impaired Gait No (0 pts) Mobility Assist Device Used No (0 pt) Altered Elimination No (0 pt) Score/Fall Risk Level 0 - 2 = Low Risk Oriented to surroundings, Maintained a safe environment, Educated pt \T\ family on fall prevention, incl call for assistance when getting out of bed, Assessed \T\ reinforced patient's understanding of fall precautions, Provided non-skid footwear, Hourly rounding (assess needs \T\ fall precautionary measures) done, Used ambulatory aids as needed (educated on \T\ assisted with). Abuse screen: Denies threats or abuse. Denies injuries from another. Nutritional screening: On. Tuberculosis screening: No symptoms or risk factors identified. Assessment: 09:30 General: Appears in no apparent distress. Behavior is cooperative, appropriate for age, ko1 anxious. Pain: Complains of pain in back. Neuro: Level of Consciousness is awake, alert, obeys commands. Cardiovascular: No deficits noted. Respiratory: No deficits noted. GI: No deficits noted. : No deficits noted. EENT: No deficits noted. Derm: No deficits noted. Musculoskeletal: Reports pain in back. Vital Signs: 09:30 BP 158 / 62; Pulse 55; Resp 19; Temp 97.4(TE); Pulse Ox 98% on R/A; Weight 81.65 kg; ss Height 4 ft. 11 in. ; Pain 7/10; 09:30 BP 135 / 99; Pulse 60; Resp 18; Pulse Ox 99% ; ko1 11:29 BP 110 / 76; Pulse 64; Resp 16; Pulse Ox 99% ; ko1 09:30 Body Mass Index 36.36 (81.65 kg, 149.86 cm) ss 09:30 Pain Scale: Adult ss ED Course: 09:21 Patient arrived in ED. mg5 09:22 Anatoly Castillo, ALAN is Primary Nurse. bp 09:24 Ashish Morales MD is Attending Physician. rt 09:26 Alycia Euceda FNP-C is PHCP. kb 09:30 Arm band placed on right wrist. ss 09:30 Patient has correct armband on for positive identification. Bed in low position. Call ko1 light in reach. Side rails up X2. Provided Education on: meds/labs. Pulse ox on. NIBP on. Door closed. Noise minimized. Warm blanket given. 09:35 Inserted saline lock: 22 gauge in right forearm, using aseptic technique. Blood bp collected. 09:38 Triage completed. ss 09:48 CT Chest Wo Con In Process Unspecified. EDMS 11:16 No provider procedures requiring assistance completed. ko1 11:29 IV discontinued, intact, bleeding controlled, No redness/swelling at site. Pressure ko1 dressing applied. Administered Medications: 10:35 Drug: NS 0.9% IV 500 ml Route: IV; Rate: bolus; Site: right forearm; ko1 10:36 Drug: traMADol PO 50 mg Route: PO; ko1 Medication: 11:15 VIS not applicable for this client. ko1 Outcome: 11:11 Discharge ordered by . marvin 11:29 Discharged to home via wheelchair, with family. ko1 11:29 Condition: stable 11:29 Discharge instructions given to patient, Instructed on discharge instructions, follow up and referral plans. medication usage, Demonstrated understanding of instructions, follow-up care, medications, Prescriptions given X 1. 11:40 Patient left the ED. ko1 Signatures: Dispatcher [employer] EDMS Alycia Euceda, STAFFING AND SCHEDULING COORDINATOR-C STAFFING AND SCHEDULING COORDINATOR-CkArlene Juarez, RN RN ss Anatoly Castillo RN RN bp Oliver, Kathy, RN RN ko1 Ashish Morales MD MD rt [place], [place] mg5
--- NOTE | 2023-05-04 11:12 | EDPHYS ---
Physician Documentation [facility] Name: Radha Bentley Age: 82 yrs Sex: Female : 1940 Arrival Date: 05/04/2023 Time: 09:16 Bed 7 Private MD: ED Physician Ashish Morales HPI: 05/04 17:33 This 82 yrs old Female presents to ER via Wheelchair with complaints of Back Pain, kb Shoulder Pain, Breathing Difficulty, Rib Pain. 17:33 The patient has not experienced similar symptoms in the past. The patient has been kb recently seen at the [facility] Emergency Department. 17:34 The patient or guardian reports chest pain that is located primarily in the anterior kb chest wall, left. Onset: 2.5 day(s) ago. The pain does not radiate. Associated signs and symptoms: Pertinent positives: shortness of breath. The chest pain is described as aching. Duration: The patient or guardian reports a single episode. Modifying factors: The symptoms are alleviated by nothing. the symptoms are aggravated by movement, palpation of area. Severity of pain: At its worst the pain was mild in the emergency department the pain is unchanged. Pt reports left chest wall pain that began 2 and half weeks ago after falling outside of [place]. States pain has been persistent and she has had intermittent shortness of breath. Concern for infection.. Historical: - Allergies: 09:30 Avelox; ss 09:30 Band-aid adhesive; ss - PMHx: 09:30 ADD/ADHD; COPD; Heart Murmur; Hyperlipidemia; Hypertension; Hypothyroidism; kidney ss disease; - PSHx: 09:30 bilateral knee replacement; breast reduction; Cholecystectomy; Shoulder replacment; ss - Immunization history:: Client reports receiving the 2nd dose of the Covid vaccine. - Social history:: Smoking status: Patient denies any tobacco usage or history of. ROS: 17:31 Constitutional: Negative for fever, chills, and weight loss. kb 17:31 Cardiovascular: Positive for chest pain, with movement. 17:31 Respiratory: Positive for shortness of breath. 17:31 All other systems are negative. Exam: 10:14 ECG was reviewed by the Attending Physician. kb 17:31 Constitutional: This is a well developed, well nourished patient who is awake, alert, kb and in no acute distress. Head/Face: Normocephalic, atraumatic. ENT: Moist Mucous membranes Cardiovascular: Regular rate and rhythm with a normal S1 and S2. No gallops, murmurs, or rubs. No pulse deficits. Respiratory: Respirations even and unlabored. No increased work of breathing. Talking in full sentences Abdomen/GI: Soft, non-tender. No distention Skin: Warm, dry with normal turgor. Normal color. MS/ Extremity: Pulses equal, no cyanosis. Neurovascular intact. Full, normal range of motion. Neuro: Awake and alert, GCS 15, oriented to person, place, time, and situation. Moves all extremities. Normal gait. 17:31 Chest/axilla: Inspection: normal, Palpation: tenderness, that is mild, of the left breast. Vital Signs: 09:30 BP 158 / 62; Pulse 55; Resp 19; Temp 97.4(TE); Pulse Ox 98% on R/A; Weight 81.65 kg; ss Height 4 ft. 11 in. ; Pain 7/10; 09:30 BP 135 / 99; Pulse 60; Resp 18; Pulse Ox 99% ; ko1 11:29 BP 110 / 76; Pulse 64; Resp 16; Pulse Ox 99% ; ko1 09:30 Body Mass Index 36.36 (81.65 kg, 149.86 cm) ss 09:30 Pain Scale: Adult ss MDM: 09:25 Patient medically screened. rt 17:31 Differential diagnosis: fracture, pneumonia, contusion. Data reviewed: vital signs, kb nurses notes. Counseling: I had a detailed discussion with the patient and/or guardian regarding: the historical points, exam findings, and any diagnostic results supporting the discharge/admit diagnosis, lab results, radiology results, the need for outpatient follow up, a family practitioner, to return to the emergency department if symptoms worsen or persist or if there are any questions or concerns that arise at home. 05/04 09:27 Order name: Basic Metabolic Panel; Complete Time: 10:10 kb 05/04 09:27 Order name: CBC with Diff; Complete Time: 09:51 kb 05/04 09:27 Order name: NT PRO-BNP; Complete Time: 10:10 kb 05/04 09:27 Order name: Troponin HS; Complete Time: 10:10 kb 05/04 09:27 Order name: CT Chest Wo Con; Complete Time: 10:02 kb 05/04 09:27 Order name: EKG; Complete Time: 09:29 kb 05/04 09:27 Order name: Cardiac monitoring; Complete Time: :35 kb 05/04 09:27 Order name: EKG - Nurse/Tech; Complete Time: 10:09 kb 05/04 09:27 Order name: IV Saline Lock; Complete Time: :35 kb 05/04 09:27 Order name: Labs collected and sent; Complete Time: :35 kb 05/04 09:27 Order name: O2 Per Protocol; Complete Time: :35 kb 05/04 09:27 Order name: O2 Sat Monitoring; Complete Time: :35 kb EC:14 Rate is 57 beats/min. Rhythm is regular. QRS [place] is Normal. ND interval is prolonged kb at 244 msec. QRS interval is normal at 116 msec. QT interval is normal at 474 msec. Administered Medications: 10:35 Drug: NS 0.9% IV 500 ml Route: IV; Rate: bolus; Site: right forearm; ko1 10:36 Drug: traMADol PO 50 mg Route: PO; ko1 Disposition: 18:25 Co-signature as Attending Physician, Ashish Morales MD I reviewed the patient's care rt provided by the Advanced Practice Provider and agree with the diagnosis and treatment plan. Disposition Summary: 05/04/23 11:11 Discharge Ordered Location: Home kb Condition: Stable kb Diagnosis - Chest pain, unspecified - chest wall pain kb Followup: kb - With: Emergency Department - When: As needed - Reason: Worsening of condition Followup: kb - With: Private Physician - When: 2 - 3 days - Reason: Recheck today's complaints, Continuance of care, Re-evaluation by your physician Discharge Instructions: - Discharge Summary Sheet kb - Nonspecific Chest Pain, Adult, [id number] kb Forms: - Medication Reconciliation Form kb - Thank You Letter kb - Antibiotic Education kb - Prescription Opioid Use kb - Patient Portal Instructions kb Prescriptions: - orphenadrine citrate 100 mg Oral Tablet Sustained Release - take 1 tablet by ORAL route 2 times per day As needed; 20 tablet; Refills: 0, kb Product Selection Permitted Signatures: Dispatcher [facility] Alycia Euceda FNP-C FNP-Ckb Blanchard, Shelby, RN RN Luz Marina Goff RN RN ko1 Ashish Morales, MD rt
[2023-05-04 12:04] VITALS: BP 110/76; TEMP 97.4; O2SAT 99
--- NOTE | 2023-05-07 13:12 | EKG ---
Test Date: 2023-05-04 Test Time: 10:06:31 Hris Specialist: BP MEASUREMENT RESULTS: Intervals: Rate: 57 MT: 244 QRSD: 116 QT: 488 QTc: 474 [place]: P: 77 MT: 244 QRS: -36 T: 27 INTERPRETIVE STATEMENTS: Sinus bradycardia with 1st degree AV block with premature atrial complexes Left axis deviation Abnormal ECG Compared to ECG 04/13/2023 08:56:55 Sinus rhythm no longer present Left ventricular hypertrophy no longer present Electronically Signed On 05-07-23 13:08:53 CDT by Andre Arriaga
== END 2023-05-04 11:40 | disposition home or self-care (01) ==
LOC: ER 09:16 → SUPCPDRO 09:16 → ER 11:40
DX: R07.89 Other chest pain (principal); I10 Essential (primary) hypertension; J44.9 Chronic obstructive pulmonary disease, unspecified; E78.5 Hyperlipidemia, unspecified; Z88.1 Allergy status to other antibiotic agents; Z91.048 Other nonmedicinal substance allergy status
CPT/HCPCS: 85025; 80048; 36415; 84484; 83880; 71250; 99284; J7040; 93005

== ENCOUNTER 2023-06-14 18:24 | Emergency (ER) | payer MEDICARE ==
[2023-06-14] MEDS ORDERED: ACETAMINOPHEN 500 MG TAB ONE (18:55)
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
--- OUTSIDE RECORDS SUMMARY | 2023-06-14 19:34 | XMS REPORT | Continuity of Care Document ---
:[address] [facility] t Address [address] [place] [address] Care Team Providers Name Role Phone [place] Primary Care Physician Anurag Sanderson Attending Clinician Unavailable [email or web address]_Carla Attending Clinician Unavailable Glenys Claros Attending Clinician Deavers_Maria G Attending Clinician Unavailable Alisa Sanders Attending Clinician EMMANUEL VELEZ Attending Clinician Unavailable Emmanuel Velez Attending Clinician PEREZ MORENO Attending Clinician Unavailable Perez Moreno Attending Clinician Doctor Unassigned, [place] Attending Clinician Unavailable Allegra Laura Attending Clinician CARLY SINCLAIR Attending Clinician Unavailable Carly Sinclair DO Attending Clinician Canalkim_Keesha Attending Clinician Unavailable Jeffrey Garcia Attending Clinician Olivia-Mbayo_A_AH Attending Clinician Unavailable Caitlyn Jerez Attending Clinician [phone] Vincent Soni Attending Clinician Sariah Becerra Attending Clinician Maria Luisa Rust NP Attending Clinician Timi Aguirre MD Attending Clinician TIMI AGUIRRE Attending Clinician Unavailable Physician, No Primary or Family Admitting Clinician Unavaila ble [email or web address]_Kadiyala_S Admitting Clinician Unavailable Deavers_Maria G Admitting Clinician Unavailable AYO CASTAÑEDA Admitting Clinician Unavailable Ayo Castañeda Admitting Clinician PEREZ MORENO Admitting Clinician Unavailable Perez Moreno Admitting Clinician CARLY SINCLAIR Admitting Clinician Unavailable Sunny Admitting Clinician Unavailable Olivia-Mbayo_A_AH Admitting Clinician Unavailable Vincent Soni Admitting Clinician TIMI AGUIRRE Admitting Clinician Unavailable Payers Payer Name Policy Type Policy Number Effective Date Expiration Date [facility]rist[id number] 00:[facility]:00 [facility] [place] [id number] 2019 CLASSIC/VALUE 00:00:00 [facility]64H 2020 (MEDICARE 00:00:00 REPLACEMENT HMO) [employer] [place] - [id number] 2019 AG (MEDICARE 00:00:00 REPLACEMENT/ADVANTA GE - HMO) Problems Condition Condition Condition Status Onset Resolution Last Treating Co mments Source Name Details Category Date Date Treatment Clinician Date SUBARACHMO SUBARACHM Diagnosis Active 2022-12-11 Memoria ID OID - 21:45:00 l HEMORRHAGE HEMORRHAGE 23:05: He rmann Active 00 11/25/2022 [facility] [place] Acute Acute Diagnosis Active 2022-11-25 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: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 00 (disorder) (disorder) Active 11/22/2022 Diagnosis 11/25/2022 [facility] SUBARACHNO SUBARACHN Diagnosis Active 2022-11-23 Memoria ID OID 2- 15:38:00 l HEMORRHAGE HEMORRHAGE 00:00: He rmann Active 00 11/20/2022 [facility] [place] FALL FROM FALL FROM Diagnosis Active 2019-102020-09-16 Memoria STANDING STANDING 2- 21:55:00 l Active 00:00: Raul 09/04/2020 00 [facility] [place] S/P FALL, S/P Diagnosis Active 2019-102020-09-05 Memoria FRACTURED FALL, 2- 00:45:00 l RIGHT FRACTURED 00:00: Raul WRIST, RIGHT 00 HEAD HE WRIST, HEAD HE Active 09/04/2020 [facility] [place] Traumatic Traumatic Problem 2022-12-04 Memoria subdural subdural 08:08:28 l hemorrhage hemorrhage He rmann with loss with loss of of consciousn consciousn ess status ess status unknown, unknown, initial initial encounter encounter 12/04/2022 [facility] [place] Intracrani Intracran Diagnosis 2022-12-02 Memoria al injury ial injury 04:21:54 l with loss with loss Herm bernie of of consciousn consciousn ess ess (disorder) (disorder) Diagnosis 12/02/2022 [facility] [place] 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 Francisco zhang stenosis stenosis 08:08:28 l in in [place] cervical cervical region region (disorder) (disorder) Active Problem 12/04/2022 [facility] TRAUM TRAUM Diagnosis Active 2022-12-11 [facility] oria SUBDR HEM SUBDR HEM 21:45:00 l WITH LOC WITH LOC Ajay n STATUS STATUS UNKNOWN, UNKNOWN, Active [facility] [place] Hypertensi Problem Active 2022-12-04 Keesha finch ve Hypertensi 08:08:28 l disorder, ve [place] systemic disorder, arterial systemic (disorder) arterial (disorder) Active Problem 12/04/2022 [facility] Hyperlipid Hyperlipi Problem Active 2022-12-04 Memoria emia demia 08:08:28 l (disorder) (disorder) He ann Active Problem 12/04/2022 [facility] Hypothyroi Hypothyro Problem Active 2022-12-04 Memoria dism idism 08:08:28 l (disorder) (disorder) He rmann Active Problem 12/04/2022 [facility] Memory Memory Problem Active 2022-12-04 [facility] oria impairment impairment 08:08:28 l (finding) (finding) Herm bernie Active Problem 12/04/2022 [facility] Morbid Morbid Problem Active 2022-12-04 [facility] oria obesity obesity 08:08:28 l (disorder) (disorder) He rmann Active Problem 12/04/2022 [facility] Recurrent Recurrent Problem Active 2022-12-04 Memoria falls falls 08:08:28 l (finding) (finding) Herm bernie Active Problem 12/04/2022 [facility] Transient Transient Problem Active 2022-12-04 Memoria ischemic ischemic 08:08:28 l attack attack [place] (disorder) (disorder) Active Problem 12/04/2022 [facility] Tremor Tremor Problem Active 2022-12-04 Jose Francisco zhang (finding) (finding) 08:08:28 l Active [place] Problem 12/04/2022 [facility] 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-04 Me moria kidney kidney 08:08:28 l disease disease [place] (disorder) (disorder) Active Problem 12/04/2022 [facility] 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-04 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:08:28 l e lung e lung [place] disease disease (disorder) (disorder) Active Problem 12/04/2022 [facility] 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 08:08:28 l (disorder) (disorder) He rmann Active Problem 12/04/2022 [facility] Essential Essential Problem Active 2022-12-04 Memoria tremor tremor 08:08:28 l (disorder) (disorder) He rmann Active Problem 12/04/2022 [facility] UNSPECIFIE UNSPECIFI Diagnosis Active 2020-09-16 Memoria D FALL, ED FALL, 21:55:00 l INITIAL INITIAL [place] ENCOUNTER ENCOUNTER Active [facility] [place] [id number] 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 [facility] [id number] Primary Problem Comm on osteoarthr Spirit itis, - [facility] right [facility] foot [facility] [id number] Primary Problem 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 hand [id number] Acute pain Problem Com mon of right Spirit shoulder - [facility] [id number] 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 [facility] [id number] Arthritis Problem Com mon of hand Spirit - [facility] History of Past Illness Condition Condition Condition Status Onset Resolution Last Treating Co mments Source Name Details Category Date Date Treatment Clinician Date Spinal Spinal Problem 2022-2022-12-04 2022-12-04 Memoria stenosis, stenosis, 3- 08:08:28 08:08:28 l cervical cervical 16:54: Ajay n region region 00 11/29/2022 12/04/2022 [facility] [place] Repeated Repeated Problem 2022-12-04 2022-12-04 Memoria falls falls 3- 08:08:28 08:08:28 l 11/29/2022 16:45: Ajay gorman 12/04/2022 00 [facility] [place] Chronic Chronic Problem 2022-11-27 2022-11-27 Memoria kidney kidney - 10:42:07 10:42:07 l disease, disease, 19:17: Ajay gorman unspecifie unspecifie 00 d d 11/22/2022 11/27/2022 [facility] [place] Allergies, Adverse Reactions, Alerts Allergy Allergy Status Severity Reaction(s) Onset Inactive Treating Comm ents Source Name Type Date Date Clinician ADHESIVE DRUG Active Med Rash Univers TAPE-DEBBY 8-30 ity of ICONES 00:00: [place] [address] [facility] MOXIFLOX DRUG Active Med Rash Univers ACIN HCL INGREDI 8-30 ity of 00:00: [place] [address] [facility] Adhesive Propensi Active Rash Univer s Tape-Debby ty to 8-30 ity of icones adverse 00:00: [place] reaction 00 Medical s to Branch drug Moxiflox Propensi Active Rash Univer s acin Hcl ty to 8-30 ity of adverse 00:00: [place] reaction 00 Medical s to Branch drug moxiflox DA Active U RASH [facility] acin HCl 2-15 West 00:00: [address] BANDAIDS DA Active CO RASH [facility] ADHESIVE 2-15 [place] 00:00: [address] Avelox Avelox Active CO^Mild Memoria l [place] Avelox Allergy Active Rash Devoted to Medical substanc Group e Social History Social Habit Start Date Stop Date Quantity Comments Source ASSERTION [facility] Alcohol Comment Occasional [facility] History of Common Spirit - Tobacco Use [facility] Sex Assigned At Common Sp cristian - [facility] Alcohol intake 2022-08-10 2022-08-10 0 /d University of 00:00:00 00:00:00 [facility] Exposure to 2022-07-26 2022-08-05 Not sure [facility] SARS-CoV-2 00:00:00 12:21:00 [facility] (event) Branch Social History 2020-09-05 2020-09-05 [facility] H ermann 14:31:45 14:31:45 Tobacco use and 2020-06-28 2020-06-28 Never used Universit y of exposure 00:00:00 00:00:00 [facility] Smoking Status Start Date Stop Date Source Former Smoker 2022-11-18 00:00:00 2022-11-18 00:00:00 Common S pirit - [facility] Ce nter Never smoked tobacco [facility] Medications Ordered Filled Start Stop Current Ordering Indication Dosage Frequency Signature Comments Components Source Medication Medication Date Date Medication? Clinician (SIG) Name Name valproic Yes 500 mg = 2 Mem oria acid 250 mg 3-01 cap, PO, l oral 16:43: Q8H, # 30 Raul capsule(Dep 00 cap, 0 ekene) Refill(s), Pharmacy: [id number], 149.86, cm, 11/27/22 8:13:00 PSYCHIATRIC ARNP, Height, 86.364, kg, 11/27/22 8:13:00 PSYCHIATRIC ARNP, Weight Tylenol 0 No 1 tab, PO, Jose Francisco zhang with 3-01 Q6H, PRN l Codeine #3 16:43: Pain Score H ermann oral tablet 00 7-10, X 3 day, # 12 tab, 0 Refill(s), Pharmacy: [id number], 149.86, cm, 11/27/22 8:13:00 PSYCHIATRIC ARNP, Height, 86.364, kg, 11/27/22 8:13:00 PSYCHIATRIC ARNP, Weight valproic Yes 500 mg = 2 Mem oria acid 250 mg 3-01 cap, PO, l oral 16:43: Q8H, # 30 [place] capsule(Dep 00 cap, 0 ekene) Refill(s), Pharmacy: [id number], 149.86, cm, 11/27/22 8:13:00 PSYCHIATRIC ARNP, Height, 86.364, kg, 11/27/22 8:13:00 PSYCHIATRIC ARNP, Weight Tylenol 2022-0 No 1 tab, PO, Jose Francisco zhang with 3-01 Q6H, PRN l Codeine #3 16:43: Pain Score H ermann oral tablet 00 7-10, X 3 day, # 12 tab, 0 Refill(s), Pharmacy: [id number], 149.86, cm, 11/27/22 8:13:00 PSYCHIATRIC ARNP, Height, 86.364, kg, 11/27/22 8:13:00 PSYCHIATRIC ARNP, Weight valproic 2022-0 Yes 500 mg = 2 Mem oria acid 250 mg 3-01 cap, PO, l oral 16:43: Q8H, # 30 Raul capsule(Dep 00 cap, 0 ekene) Refill(s), Pharmacy: [id number], 149.86, cm, 11/27/22 8:13:00 PSYCHIATRIC ARNP, Height, 86.364, kg, 11/27/22 8:13:00 PSYCHIATRIC ARNP, Weight Tylenol 2022-0 No 1 tab, PO, Jose Francisco zhang with 3-01 Q6H, PRN l Codeine #3 16:43: Pain Score H ermann oral tablet 00 7-10, X 3 day, # 12 tab, 0 Refill(s), Pharmacy: [id number], 149.86, cm, 11/27/22 8:13:00 PSYCHIATRIC ARNP, Height, 86.364, kg, 11/27/22 8:13:00 PSYCHIATRIC ARNP, Weight valproic 2022-0 Yes 500 mg = 2 Mem oria acid 250 mg 3-01 cap, PO, l oral 16:43: Q8H, # 30 Raul capsule(Dep 00 cap, 0 ekene) Refill(s), Pharmacy: [id number], 149.86, cm, 11/27/22 8:13:00 PSYCHIATRIC ARNP, Height, 86.364, kg, 11/27/22 8:13:00 PSYCHIATRIC ARNP, Weight Tylenol 2022-0 No 1 tab, PO, Jose Francisco zhang with 3-01 Q6H, PRN l Codeine #3 16:43: Pain Score H ermann oral tablet 00 7-10, X 3 day, # 12 tab, 0 Refill(s), Pharmacy: [facility] #[id number], 149.86, cm, 11/27/22 8:13:00 PSYCHIATRIC ARNP, Height, 86.364, kg, 11/27/22 8:13:00 PSYCHIATRIC ARNP, Weight valproic 2022-0 Yes 500 mg = 2 Mem oria acid 250 mg 3-01 cap, PO, l oral 16:43: Q8H, # 30 [place] capsule(Dep 00 cap, 0 ekene) Refill(s), Pharmacy: [id number], 149.86, cm, 11/27/22 8:13:00 PSYCHIATRIC ARNP, Height, 86.364, kg, 11/27/22 8:13:00 PSYCHIATRIC ARNP, Weight Tylenol 2022-0 No 1 tab, PO, Jose Francisco zhang with 3-01 Q6H, PRN l Codeine #3 16:43: Pain Score H ermann oral tablet 00 7-10, X 3 day, # 12 tab, 0 Refill(s), Pharmacy: [id number], 149.86, cm, 11/27/22 8:13:00 PSYCHIATRIC ARNP, Height, 86.364, kg, 11/27/22 8:13:00 PSYCHIATRIC ARNP, Weight valproic 2022-0 Yes 500 mg = 2 Mem oria acid 250 mg 3-01 cap, PO, l oral 16:43: Q8H, # 30 Raul capsule(Dep 00 cap, 0 ekene) Refill(s), Pharmacy: [id number], 149.86, cm, 11/27/22 8:13:00 PSYCHIATRIC ARNP, Height, 86.364, kg, 11/27/22 8:13:00 PSYCHIATRIC ARNP, Weight Tylenol 2022-0 No 1 tab, PO, Jose Francisco zhang with 3-01 Q6H, PRN l Codeine #3 16:43: Pain Score H ermann oral tablet 00 7-10, X 3 day, # 12 tab, 0 Refill(s), Pharmacy: [id number], 149.86, cm, 11/27/22 8:13:00 PSYCHIATRIC ARNP, Height, 86.364, kg, 11/27/22 8:13:00 PSYCHIATRIC ARNP, Weight valproic 2022-0 Yes 500 mg = 2 Mem oria acid 250 mg 3-01 cap, PO, l oral 16:43: Q8H, # 30 [place] capsule(Dep 00 cap, 0 ekene) Refill(s), Pharmacy: [id number], 149.86, cm, 11/27/22 8:13:00 PSYCHIATRIC ARNP, Height, 86.364, kg, 11/27/22 8:13:00 PSYCHIATRIC ARNP, Weight Tylenol 2022-0 No 1 tab, PO, Jose Francisco zhang with 3-01 Q6H, PRN l Codeine #3 16:43: Pain Score H ermann oral tablet 00 7-10, X 3 day, # 12 tab, 0 Refill(s), Pharmacy: [facility] #[id number], 149.86, cm, 11/27/22 8:13:00 PSYCHIATRIC ARNP, Height, 86.364, kg, 11/27/22 8:13:00 PSYCHIATRIC ARNP, Weight valproic 2022-0 Yes 500 mg = 2 Mem oria acid 250 mg 3-01 cap, PO, l oral 16:43: Q8H, # 30 [place] capsule(Dep 00 cap, 0 ekene) Refill(s), Pharmacy: [facility] #[id number], 149.86, cm, 11/27/22 8:13:00 PSYCHIATRIC ARNP, Height, 86.364, kg, 11/27/22 8:13:00 PSYCHIATRIC ARNP, Weight Tylenol 2022-0 No 1 tab, PO, Jose Francisco zhang with 3-01 Q6H, PRN l Codeine #3 16:43: Pain Score H ermann oral tablet 00 7-10, X 3 day, # 12 tab, 0 Refill(s), Pharmacy: [facility] #[id number], 149.86, cm, 11/27/22 8:13:00 PSYCHIATRIC ARNP, Height, 86.364, kg, 11/27/22 8:13:00 PSYCHIATRIC ARNP, Weight rOPINIRole 2022-0 Yes 2 mg = 1 Mem oria 2 mg oral 3-01 tab, PO, l tablet 16:42: Q12H, 0 [place] 00 Refill(s) acetaminoph 2023-0 Yes 100.4 F, M emoria en 325 mg 3-01 0 l oral 16:42: Refill(s) Raul tablet. 00 rOPINIRole 2023-0 Yes 2 mg = 1 Mem oria 2 mg oral 3-01 tab, PO, l tablet 16:42: Q12H, 0 [place] 00 Refill(s) acetaminoph 2023-0 Yes 100.4 F, [...] tab, PO, l tablet 16:42: Q12H, 0 [place] 00 Refill(s) acetaminoph 2023-0 Yes 100.4 F, M emoria en 325 mg 3-01 0 l oral 16:42: Refill(s) [place] tablet. 00 rOPINIRole 2023-0 Yes 2 mg = 1 Mem oria 2 mg oral 3-01 tab, PO, l tablet 16:42: Q12H, 0 Raul 00 Refill(s) acetaminoph 2023-0 Yes 100.4 F, M emoria en 325 mg 3-01 0 l oral 16:42: Refill(s) [place] tablet. 00 rOPINIRole 2023-0 Yes 2 mg [...] mg 3-01 0 l oral 16:42: Refill(s) [place] tablet. 00 rOPINIRole 2023-0 Yes 2 mg = 1 Mem oria 2 mg oral 3-01 tab, PO, l tablet 16:42: Q12H, 0 [place] 00 Refill(s) acetaminoph 2023-0 Yes 100.4 F, M emoria en 325 mg 3-01 0 l oral 16:42: Refill(s) [place] tablet. 00 donepezil 2023-0 No 10 mg, 2 Jose Francisco zhang 2-28 tab, l 15:00: Route: PO, Raul 00 Drug form: TAB, Daily, Dosing Weight 86.364, kg, Start date: 11/28/22 9:00:00 PSYCHIATRIC ARNP, Duration: 30 day, Stop date: 12/27/22 9:00:00 CDT, 0 ferrous 3-0 No Notes: Memoria sulfate 2-28 Give with l 15:00: food. "Do [place] 00 Not Crush" NIFEdipine 2023-0 No 30 mg, 1 Mem oria 30 mg oral 2-28 tab, l tablet, 15:00: Route: PO, Herm bernie extended 00 Drug form: release ERTAB, Daily, Dosing Weight 86.364, kg, Start date: 11/28/22 9:00:00 PSYCHIATRIC ARNP, Duration: 30 day, Stop date: 12/27/22 9:00:00 CDT, 0 donepezil 2023-0 No 10 mg, 2 Jose Francisco zhang 2-28 tab, l 15:00: Route: PO, [place] 00 Drug form: TAB, Daily, Dosing Weight 86.364, kg, Start date: 11/28/22 9:00:00 PSYCHIATRIC ARNP, Duration: 30 day, Stop date: 12/27/22 9:00:00 CDT, 0 ferrous 3-0 No Notes: Memoria sulfate 2-28 Give with l 15:00: food. "Do Raul 00 Not Crush" NIFEdipine 2023-0 No 30 mg, 1 Mem oria 30 mg oral 2-28 tab, l tablet, 15:00: Route: PO, Herm bernie extended 00 Drug form: release ERTAB, Daily, Dosing Weight 86.364, kg, Start date: 11/28/22 9:00:00 PSYCHIATRIC ARNP, Duration: 30 day, Stop date: 12/27/22 9:00:00 CDT, 0 donepezil 2023-0 No 10 mg, 2 Jose Francisco zhang 2-28 tab, l 15:00: Route: PO, [place] 00 Drug form: TAB, Daily, Dosing Weight 86.364, kg, Start date: 11/28/22 9:00:00 PSYCHIATRIC ARNP, Duration: 30 day, Stop date: 12/27/22 9:00:00 CDT, 0 ferrous 2023-0 No Notes: Memoria sulfate 2-28 Give with l 15:00: food. "Do Not Crush" NIFEdipine 2023-0 No 30 mg, 1 Mem oria 30 mg oral 2-28 tab, l tablet, 15:00: Route: PO, Herm bernie extended 00 Drug form: release ERTAB, Daily, Dosing Weight 86.364, kg, Start date: 11/28/22 9:00:00 PSYCHIATRIC ARNP, Duration: 30 day, Stop date: 12/27/22 9:00:00 CDT, 0 donepezil 2023-0 No 10 mg, 2 Jose Francisco zhang 2-28 tab, l 15:00: Route: PO, [place] Drug form: TAB, Daily, Dosing Weight 86.364, kg, Start date: 11/28/22 9:00:00 PSYCHIATRIC ARNP, Duration: 30 day, Stop date: 12/27/22 9:00:00 CDT, 0 ferrous 2023-0 No Notes: Memoria sulfate 2-28 Give with l 15:00: food. "Do Not Crush" NIFEdipine 2023-0 No 30 mg, 1 Mem oria 30 mg oral 2-28 tab, l tablet, 15:00: Route: PO, Herm bernie extended 00 Drug form: release ERTAB, Daily, Dosing Weight 86.364, kg, Start date: 11/28/22 9:00:00 PSYCHIATRIC ARNP, Duration: 30 day, Stop date: 12/27/22 9:00:00 CDT, 0 donepezil 2023-0 No 10 mg, 2 Jose Francisco zhang 2-28 tab, l 15:00: Route: PO, Raul 00 Drug form: TAB, Daily, Dosing Weight 86.364, kg, Start date: 11/28/22 9:00:00 PSYCHIATRIC ARNP, Duration: 30 day, Stop date: 12/27/22 9:00:00 CDT, 0 ferrous 2023-0 No Notes: Memoria sulfate 2-28 Give with l 15:00: food. "Do Not Crush" NIFEdipine 2023-0 No 30 mg, 1 Mem oria 30 mg oral 2-28 tab, l tablet, 15:00: Route: PO, Herm bernie extended 00 Drug form: release ERTAB, Daily, Dosing Weight 86.364, kg, Start date: 11/28/22 9:00:00 PSYCHIATRIC ARNP, Duration: 30 day, Stop date: 12/27/22 9:00:00 CDT, 0 donepezil 2023-0 No 10 mg, 2 Jose Francisco zhang 2-28 tab, l 15:00: Route: PO, [place] 00 Drug form: TAB, Daily, Dosing Weight 86.364, kg, Start date: 11/28/22 9:00:00 PSYCHIATRIC ARNP, Duration: 30 day, Stop date: 12/27/22 9:00:00 CDT, 0 ferrous 2023-0 No Notes: Memoria sulfate 2-28 Give with l 15:00: food. "Do Not Crush" NIFEdipine 2023-0 No 30 mg, 1 Mem oria 30 mg oral 2-28 tab, l tablet, 15:00: Route: PO, Herm bernie extended Drug form: release ERTAB, Daily, Dosing Weight 86.364, kg, Start date: 11/28/22 9:00:00 PSYCHIATRIC ARNP, Duration: 30 day, Stop date: 12/27/22 9:00:00 CDT, 0 donepezil 2023-0 No 10 mg, 2 Jose Francisco zhang 2-28 tab, l 15:00: Route: PO, Raul 00 Drug form: TAB, Daily, Dosing Weight 86.364, kg, Start date: 11/28/22 9:00:00 PSYCHIATRIC ARNP, Duration: 30 day, Stop date: 12/27/22 9:00:00 CDT, 0 ferrous 2023-0 No Notes: Memoria sulfate 2-28 Give with l 15:00: food. "Do Not Crush" NIFEdipine 2023-0 No 30 mg, 1 Mem oria 30 mg oral 2-28 tab, l tablet, 15:00: Route: PO, Herm bernie extended Drug form: release ERTAB, Daily, Dosing Weight 86.364, kg, Start date: 11/28/22 9:00:00 PSYCHIATRIC ARNP, Duration: 30 day, Stop date: 12/27/22 9:00:00 CDT, 0 donepezil 2023-0 No 10 mg, 2 Jose Francisco zhang 2-28 tab, l 15:00: Route: PO, Raul Drug form: TAB, Daily, Dosing Weight 86.364, kg, Start date: 11/28/22 9:00:00 PSYCHIATRIC ARNP, Duration: 30 day, Stop date: 12/27/22 9:00:00 CDT, 0 ferrous 2022-0 No Notes: Memoria sulfate 2-28 Give with l 15:00: food. "Do [place] 00 Not Crush" NIFEdipine 2022-0 No 30 mg, 1 Mem oria 30 mg oral 2-28 tab, l tablet, 15:00: Route: PO, Herm bernie extended 00 Drug form: release ERTAB, Daily, Dosing Weight 86.364, kg, Start date: 11/28/22 9:00:00 PSYCHIATRIC ARNP, Duration: 30 day, Stop date: 12/27/22 9:00:00 [...] ne 2-28 microgram, l 12:00: 1 tab, [place] 00 Route: PO, Drug form: TAB, Q6AM, Dosing Weight 86.364, kg, Start date: 11/28/22 6:00:00 PSYCHIATRIC ARNP, Duration: 30 day, Stop date: 12/27/22 6:00:00 CDT, 0 levothyroxi 2023-0 No 112 Memori a ne 2-28 microgram, l 12:00: 1 tab, Route: PO, Drug form: TAB, Q6AM, Dosing Weight 86.364, kg, Start date: 11/28/22 6:00:00 PSYCHIATRIC ARNP, Duration: 30 day, Stop date: 12/27/22 6:00:00 CDT, 0 levothyroxi 2023-0 No 112 Memori a ne 2-28 microgram, l 12:00: 1 tab, [place] 00 Route: PO, Drug form: TAB, Q6AM, Dosing Weight 86.364, kg, Start date: 11/28/22 6:00:00 PSYCHIATRIC ARNP, Duration: 30 day, Stop date: 12/27/22 6:00:00 CDT, 0 levothyroxi 2023-0 No 112 Memori a ne 2-28 microgram, l 12:00: 1 tab, Route: PO, Drug form: TAB, Q6AM, Dosing Weight 86.364, kg, Start date: 11/28/22 6:00:00 PSYCHIATRIC ARNP, Duration: 30 day, Stop date: 12/27/22 6:00:00 CDT, 0 levothyroxi 3-0 No 112 Memori a ne 2-28 microgram, l 12:00: 1 tab, Route: PO, Drug form: TAB, Q6AM, Dosing Weight 86.364, kg, Start date: 11/28/22 6:00:00 PSYCHIATRIC ARNP, Duration: 30 day, Stop date: 12/27/22 6:00:00 CDT, 0 levothyroxi 2023-0 No 112 Memori a ne 2-28 microgram, l 12:00: 1 tab, Route: PO, Drug form: TAB, Q6AM, Dosing Weight 86.364, kg, Start date: 11/28/22 6:00:00 PSYCHIATRIC ARNP, Duration: 30 day, Stop date: 12/27/22 6:00:00 CDT, 0 levothyroxi 2023-0 No 112 Memori a ne 2-28 microgram, l 12:00: 1 tab, Route: PO, Drug form: TAB, Q6AM, Dosing Weight 86.364, kg, Start date: 11/28/22 6:00:00 PSYCHIATRIC ARNP, Duration: 30 day, Stop date: 12/27/22 6:00:00 CDT, 0 levothyroxi 2022-0 No 112 Memori a ne 2-28 microgram, l 12:00: 1 tab, Route: PO, Drug form: TAB, Q6AM, Dosing Weight 86.364, kg, Start date: 11/28/22 6:00:00 PSYCHIATRIC ARNP, Duration: 30 day, Stop date: 12/27/22 6:00:00 CDT, 0 Wellbutrin 2022-0 No 150 mg, 1 Me moria SR 2-28 tab, l 03:00: Route: PO, Drug form: ERTAB, Q12H, Dosing Weight 86.364, kg, Start date: 11/27/22 21:00:00 PSYCHIATRIC ARNP, Duration: 30 day, Stop date: 12/27/22 9:00:00 CDT, 0 Coreg 2022-0 No Notes: Memoria 2-28 Give with l 03:00: food. (Same As: Coreg) Lexapro 2022-0 No Notes: Memoria 2-28 (Same as: l 03:00: Lexapro) Pepcid 40 0 No Notes: Memori a mg oral 2-28 (Same as: l tablet 03:00: Pepcid) atorvastati No 20 mg, 1 Me moria n 2-28 tab, l 03:00: Route: PO, Drug form: TAB, Bedtime, Dosing Weight 86.364, kg, Start date: 11/27/22 21:00:00 PSYCHIATRIC ARNP, Duration: 30 day, Stop date: 12/26/22 21:00:00 CDT, 0 primidone 2022-0 No Notes: Memori a 2-28 (Same as: l 03:00: Mysoline) rOPINIRole 0 No Notes: Memor ia 2-28 TIME l 03:00: CRITICAL MEDICATION (Same as: Requip) Wellbutrin 2022-0 No 150 mg, 1 Me moria SR 2-28 tab, l 03:00: Route: PO, Drug form: ERTAB, Q12H, Dosing Weight 86.364, kg, Start date: 11/27/22 21:00:00 PSYCHIATRIC ARNP, Duration: 30 day, Stop date: 12/27/22 9:00:00 [...] Weight 86.364, kg, Start date: 11/27/22 21:00:00 PSYCHIATRIC ARNP, Duration: 30 day, Stop date: 12/26/22 21:00:00 CDT, 0 primidone No Notes: Memori a 2-28 (Same as: l 03:00: Mysoline) rOPINIRole No Notes: Memor ia 2-28 TIME l 03:00: CRITICAL MEDICATION (Same as: Requip) Wellbutrin No 150 mg, 1 Me moria SR 2-28 tab, l 03:00: Route: PO, Drug form: ERTAB, Q12H, Dosing Weight 86.364, kg, Start date: 11/27/22 21:00:00 PSYCHIATRIC ARNP, Duration: 30 day, Stop date: 12/27/22 9:00:00 CDT, 0 Coreg 0 No Notes: Memoria 2-28 Give with l 03:00: food. (Same As: Coreg) Lexapro No Notes: Memoria 2-28 (Same as: l 03:00: Lexapro) Pepcid 40 No Notes: Memori a mg oral 2-28 (Same as: l tablet 03:00: Pepcid) atorvastati No 20 mg, 1 Me moria n 2-28 tab, l 03:00: Route: PO, 00 Drug form: TAB, Bedtime, Dosing Weight 86.364, kg, Start date: 11/27/22 21:00:00 PSYCHIATRIC ARNP, Duration: 30 day, Stop date: 12/26/22 21:00:00 CDT, 0 primidone 2022-0 No Notes: Memori a 2-28 (Same as: l 03:00: Mysoline) rOPINIRole 0 No Notes: Memor ia 2-28 TIME l 03:00: CRITICAL MEDICATION (Same as: Requip) Wellbutrin 0 No 150 mg, 1 Me moria SR 2-28 tab, l 03:00: Route: PO, [place] 00 Drug form: ERTAB, Q12H, Dosing Weight 86.364, kg, Start date: 11/27/22 21:00:00 PSYCHIATRIC ARNP, Duration: 30 day, Stop date: 12/27/22 9:00:00 CDT, 0 Coreg 2022-0 No Notes: Memoria 2-28 Give with l 03:00: food. (Same As: Coreg) Lexapro 0 No Notes: Memoria 2-28 (Same as: l 03:00: Lexapro) Pepcid 40 No Notes: Memori a mg oral 2-28 (Same as: l tablet 03:00: Pepcid) atorvastati No 20 mg, 1 Me moria n 2-28 tab, l 03:00: Route: PO, Raul 00 Drug form: TAB, Bedtime, Dosing Weight 86.364, kg, Start date: 11/27/22 21:00:00 PSYCHIATRIC ARNP, Duration: 30 day, Stop date: 12/26/22 21:00:00 CDT, 0 primidone 2022-0 No Notes: Memori a 2-28 (Same as: l 03:00: Mysoline) rOPINIRole 0 No Notes: Memor ia 2-28 TIME l 03:00: CRITICAL MEDICATION (Same as: Requip) Wellbutrin 2022-0 No 150 mg, 1 Me moria SR 2-28 tab, l 03:00: Route: PO, [place] 00 Drug form: ERTAB, Q12H, Dosing Weight 86.364, kg, Start date: 11/27/22 21:00:00 PSYCHIATRIC ARNP, Duration: 30 day, Stop date: 12/27/22 9:00:00 [...] Weight 86.364, kg, Start date: 11/27/22 21:00:00 PSYCHIATRIC ARNP, Duration: 30 day, Stop date: 12/26/22 21:00:00 CDT, 0 primidone 2022-0 No Notes: Memori a 2-28 (Same as: l 03:00: Mysoline) rOPINIRole No Notes: Memor ia 2-28 TIME l 03:00: CRITICAL MEDICATION (Same as: Requip) Wellbutrin No 150 mg, 1 Me moria SR 2-28 tab, l 03:00: Route: PO, Drug form: ERTAB, Q12H, Dosing Weight 86.364, kg, Start date: 11/27/22 21:00:00 PSYCHIATRIC ARNP, Duration: 30 day, Stop date: 12/27/22 9:00:00 [...] Weight 86.364, kg, Start date: 11/27/22 21:00:00 PSYCHIATRIC ARNP, Duration: 30 day, Stop date: 12/26/22 21:00:00 CDT, 0 primidone 2022-0 No Notes: Memori a 2-28 (Same as: l 03:00: Mysoline) rOPINIRole No Notes: Memor ia 2-28 TIME l 03:00: CRITICAL MEDICATION (Same as: Requip) Wellbutrin 0 No 150 mg, 1 Me moria SR 2-28 tab, l 03:00: Route: PO, Drug form: ERTAB, Q12H, Dosing Weight 86.364, kg, Start date: 11/27/22 21:00:00 PSYCHIATRIC ARNP, Duration: 30 day, Stop date: 12/27/22 9:00:00 [...] Weight 86.364, kg, Start date: 11/27/22 21:00:00 PSYCHIATRIC ARNP, Duration: 30 day, Stop date: 12/26/22 21:00:00 CDT, 0 primidone 2022-0 No Notes: Memori a 2-28 (Same as: l 03:00: Mysoline) rOPINIRole 0 No Notes: Memor ia 2-28 TIME l 03:00: CRITICAL MEDICATION (Same as: Requip) Wellbutrin 0 No 150 mg, 1 Me moria SR 2-28 tab, l 03:00: Route: PO, Drug form: ERTAB, Q12H, Dosing Weight 86.364, kg, Start date: 11/27/22 21:00:00 PSYCHIATRIC ARNP, Duration: 30 day, Stop date: 12/27/22 9:00:00 CDT, 0 Coreg 2022-0 No Notes: Memoria 2-28 Give with l 03:00: food. (Same As: Coreg) Lexapro 2022-0 No Notes: Memoria 2-28 (Same as: l 03:00: Lexapro) Pepcid 40 2022-0 No Notes: Memori a mg oral 2-28 (Same as: l tablet 03:00: Pepcid) atorvastati 2022-0 No 20 mg, 1 Me moria n 2-28 tab, l 03:00: Route: PO, Drug form: TAB, Bedtime, Dosing Weight 86.364, kg, Start date: 11/27/22 21:00:00 PSYCHIATRIC ARNP, Duration: 30 day, Stop date: 12/26/22 21:00:00 CDT, 0 primidone 2022-0 No Notes: Memori a 2-28 (Same as: l 03:00: Mysoline) rOPINIRole 2022-0 No Notes: Memor ia 2-28 TIME l 03:00: CRITICAL MEDICATION (Same as: Requip) rOPINIRole 2022-0 No 4 mg, 1 Jose Francisco zhang 2-27 tab, l 23:00: Route: PO, Drug form: TAB, BID, Dosing Weight 86.364, kg, Start date: 11/27/22 17:00:00 PSYCHIATRIC ARNP, Duration: 30 day, Stop date: 12/27/22 9:00:00 CDT pantoprazol 2022-0 No 40 mg, 1 Me moria e 2-27 tab, l 23:00: Route: PO, Drug form: ECTAB, BID, Dosing Weight 86.364, kg, Start date: 11/27/22 17:00:00 PSYCHIATRIC ARNP, Duration: 30 day, Stop date: 12/27/22 9:00:00 CDT rOPINIRole 2022-0 No 4 mg, 1 Jose Francisco zhang 2-27 tab, l 23:00: Route: PO, Drug form: TAB, BID, Dosing Weight 86.364, kg, Start date: 11/27/22 17:00:00 PSYCHIATRIC ARNP, Duration: 30 day, Stop date: 12/27/22 9:00:00 CDT pantoprazol 2023-0 No 40 mg, 1 Me moria e 2-27 tab, l 23:00: Route: PO, Drug form: ECTAB, BID, Dosing Weight 86.364, kg, Start date: 11/27/22 17:00:00 PSYCHIATRIC ARNP, Duration: 30 day, Stop date: 12/27/22 9:00:00 CDT rOPINIRole 2023-0 No 4 mg, 1 Jose Francisco zhang 2-27 tab, l 23:00: Route: PO, Drug form: TAB, BID, Dosing Weight 86.364, kg, Start date: 11/27/22 17:00:00 PSYCHIATRIC ARNP, Duration: 30 day, Stop date: 12/27/22 9:00:00 CDT pantoprazol 2023-0 No 40 mg, 1 Me moria e 2-27 tab, l 23:00: Route: PO, Drug form: ECTAB, BID, Dosing Weight 86.364, kg, Start date: 11/27/22 17:00:00 PSYCHIATRIC ARNP, Duration: 30 day, Stop date: 12/27/22 9:00:00 CDT rOPINIRole 2023-0 No 4 mg, 1 Jose Francisco zhang 2-27 tab, l 23:00: Route: PO, Drug form: TAB, BID, Dosing Weight 86.364, kg, Start date: 11/27/22 17:00:00 PSYCHIATRIC ARNP, Duration: 30 day, Stop date: 12/27/22 9:00:00 CDT pantoprazol 2023-0 No 40 mg, 1 Me moria e 2-27 tab, l 23:00: Route: PO, Drug form: ECTAB, BID, Dosing Weight 86.364, kg, Start date: 11/27/22 17:00:00 PSYCHIATRIC ARNP, Duration: 30 day, Stop date: 12/27/22 9:00:00 CDT rOPINIRole 2023-0 No 4 mg, 1 Jose Francisco zhang 2-27 tab, l 23:00: Route: PO, Drug form: TAB, BID, Dosing Weight 86.364, kg, Start date: 11/27/22 17:00:00 PSYCHIATRIC ARNP, Duration: 30 day, Stop date: 12/27/22 9:00:00 CDT pantoprazol 2023-0 No 40 mg, 1 Me moria e 2-27 tab, l 23:00: Route: PO, Drug form: ECTAB, BID, Dosing Weight 86.364, kg, Start date: 11/27/22 17:00:00 PSYCHIATRIC ARNP, Duration: 30 day, Stop date: 12/27/22 9:00:00 CDT rOPINIRole 2023-0 No 4 mg, 1 Jose Francisco zhang 2-27 tab, l 23:00: Route: PO, Drug form: TAB, BID, Dosing Weight 86.364, kg, Start date: 11/27/22 17:00:00 PSYCHIATRIC ARNP, Duration: 30 day, Stop date: 12/27/22 9:00:00 CDT pantoprazol 2023-0 No 40 mg, 1 Me moria e 2-27 tab, l 23:00: Route: PO, Drug form: ECTAB, BID, Dosing Weight 86.364, kg, Start date: 11/27/22 17:00:00 PSYCHIATRIC ARNP, Duration: 30 day, Stop date: 12/27/22 9:00:00 CDT rOPINIRole 2023-0 No 4 mg, 1 Jose Francisco zhang 2-27 tab, l 23:00: Route: PO, Drug form: TAB, BID, Dosing Weight 86.364, kg, Start date: 11/27/22 17:00:00 PSYCHIATRIC ARNP, Duration: 30 day, Stop date: 12/27/22 9:00:00 CDT pantoprazol 2023-0 No 40 mg, 1 Me moria e 2-27 tab, l 23:00: Route: PO, Drug form: ECTAB, BID, Dosing Weight 86.364, kg, Start date: 11/27/22 17:00:00 PSYCHIATRIC ARNP, Duration: 30 day, Stop date: 12/27/22 9:00:00 CDT rOPINIRole 2023-0 No 4 mg, 1 Jose Francisco zhang 2-27 tab, l 23:00: Route: PO, [place] 00 Drug form: TAB, BID, Dosing Weight 86.364, kg, Start date: 11/27/22 17:00:00 PSYCHIATRIC ARNP, Duration: 30 day, Stop date: 12/27/22 9:00:00 CDT pantoprazol 2023-0 No 40 mg, 1 Me moria e 2-27 tab, l 23:00: Route: PO, [place] 00 Drug form: ECTAB, BID, Dosing Weight 86.364, kg, Start date: 11/27/22 17:00:00 PSYCHIATRIC ARNP, Duration: 30 day, Stop date: 12/27/22 9:00:00 CDT valproic 2023-0 No 500 mg, 2 Jose Francisco zhang acid 250 mg 2-27 cap, l oral 22:00: Route: PO, Raul capsule(Dep 00 Drug form: ekene) CAP, Q8H, Dosing Weight 86.364, kg, Start date: 11/27/22 16:00:00 PSYCHIATRIC ARNP, Duration: 7 day, Stop date: 12/04/22 8:00:00 PSYCHIATRIC ARNP, 0 valproic 2023-0 No 500 mg, 2 Jose Francisco zhang acid 250 mg 2-27 cap, l oral 22:00: Route: PO, Raul capsule(Dep 00 Drug form: ekene) CAP, Q8H, Dosing Weight 86.364, kg, Start date: 11/27/22 16:00:00 PSYCHIATRIC ARNP, Duration: 7 day, Stop date: 12/04/22 8:00:00 PSYCHIATRIC ARNP, 0 valproic 2023-0 No 500 mg, 2 Jose Francisco zhang acid 250 mg 2-27 cap, l oral 22:00: Route: PO, Raul capsule(Dep 00 Drug form: ekene) CAP, Q8H, Dosing Weight 86.364, kg, Start date: 11/27/22 16:00:00 PSYCHIATRIC ARNP, Duration: 7 day, Stop date: 12/04/22 8:00:00 PSYCHIATRIC ARNP, 0 valproic 2023-0 No 500 mg, 2 Jose Francisco zhang acid 250 mg 2-27 cap, l oral 22:00: Route: PO, [place] capsule(Dep 00 Drug form: ekene) CAP, Q8H, Dosing Weight 86.364, kg, Start date: 11/27/22 16:00:00 PSYCHIATRIC ARNP, Duration: 7 day, Stop date: 12/04/22 8:00:00 PSYCHIATRIC ARNP, 0 valproic 2023-0 No 500 mg, 2 Jose Francisco zhang acid 250 mg 2-27 cap, l oral 22:00: Route: PO, Raul capsule(Dep 00 Drug form: ekene) CAP, Q8H, Dosing Weight 86.364, kg, Start date: 11/27/22 16:00:00 PSYCHIATRIC ARNP, Duration: 7 day, Stop date: 12/04/22 8:00:00 PSYCHIATRIC ARNP, 0 valproic 2023-0 No 500 mg, 2 Jose Francisco zhang acid 250 mg 2-27 cap, l oral 22:00: Route: PO, [place] capsule(Dep 00 Drug form: ekene) CAP, Q8H, Dosing Weight 86.364, kg, Start date: 11/27/22 16:00:00 PSYCHIATRIC ARNP, Duration: 7 day, Stop date: 12/04/22 8:00:00 PSYCHIATRIC ARNP, 0 valproic 2023-0 No 500 mg, 2 Jose Francisco zhang acid 250 mg 2-27 cap, l oral 22:00: Route: PO, Raul capsule(Dep 00 Drug form: ekene) CAP, Q8H, Dosing Weight 86.364, kg, Start date: 11/27/22 16:00:00 PSYCHIATRIC ARNP, Duration: 7 day, Stop date: 12/04/22 8:00:00 PSYCHIATRIC ARNP, 0 valproic 2023-0 No 500 mg, 2 Jose Francisco zhang acid 250 mg 2-27 cap, l oral 22:00: Route: PO, [place] capsule(Dep 00 Drug form: ekene) CAP, Q8H, Dosing Weight 86.364, kg, Start date: 11/27/22 16:00:00 PSYCHIATRIC ARNP, Duration: 7 day, Stop date: 12/04/22 8:00:00 PSYCHIATRIC ARNP, 0 gabapentin 2023-0 No 100 mg, 1 Me moria 100 mg oral 2-27 cap, l capsule 17:20: Route: PO, [place] 00 Drug form: CAP, Daily, Dosing Weight 86.364, kg, Priority: NOW, Start date: 11/27/22 11:20:00 PSYCHIATRIC ARNP, Duration: 30 day, Stop date: 12/27/22 9:00:00 CDT, 0 gabapentin 2023-0 No 100 mg, 1 Me moria 100 mg oral 2-27 cap, l capsule 17:20: Route: PO, [place] 00 Drug form: CAP, Daily, Dosing Weight 86.364, kg, Priority: NOW, Start date: 11/27/22 11:20:00 PSYCHIATRIC ARNP, Duration: 30 day, Stop date: 12/27/22 9:00:00 CDT, 0 gabapentin 2023-0 No 100 mg, 1 Me moria 100 mg oral 2-27 cap, l capsule 17:20: Route: PO, [place] 00 Drug form: CAP, Daily, Dosing Weight 86.364, kg, Priority: NOW, Start date: 11/27/22 11:20:00 PSYCHIATRIC ARNP, Duration: 30 day, Stop date: 12/27/22 9:00:00 CDT, 0 gabapentin 2023-0 No 100 mg, 1 Me moria 100 mg oral 2-27 cap, l capsule 17:20: Route: PO, [place] 00 Drug form: CAP, Daily, Dosing Weight 86.364, kg, Priority: NOW, Start date: 11/27/22 11:20:00 PSYCHIATRIC ARNP, Duration: 30 day, Stop date: 12/27/22 9:00:00 CDT, 0 gabapentin 2023-0 No 100 mg, 1 Me moria 100 mg oral 2-27 cap, l capsule 17:20: Route: PO, [place] 00 Drug form: CAP, Daily, Dosing Weight 86.364, kg, Priority: NOW, Start date: 11/27/22 11:20:00 PSYCHIATRIC ARNP, Duration: 30 day, Stop date: 12/27/22 9:00:00 CDT, 0 gabapentin 2023-0 No 100 mg, 1 Me moria 100 mg oral 2-27 cap, l capsule 17:20: Route: PO, [place] 00 Drug form: CAP, Daily, Dosing Weight 86.364, kg, Priority: NOW, Start date: 11/27/22 11:20:00 PSYCHIATRIC ARNP, Duration: 30 day, Stop date: 12/27/22 9:00:00 CDT, 0 gabapentin 2023-0 No 100 mg, 1 Me moria 100 mg oral 2-27 cap, l capsule 17:20: Route: PO, [place] 00 Drug form: CAP, Daily, Dosing Weight 86.364, kg, Priority: NOW, Start date: 11/27/22 11:20:00 PSYCHIATRIC ARNP, Duration: 30 day, Stop date: 12/27/22 9:00:00 CDT, 0 gabapentin No 100 mg, 1 Me moria 100 mg oral 2-27 cap, l capsule 17:20: Route: PO, Drug form: CAP, Daily, Dosing Weight 86.364, kg, Priority: NOW, Start date: 11/27/22 11:20:00 PSYCHIATRIC ARNP, Duration: 30 day, Stop date: 12/27/22 9:00:00 CDT, 0 levETIRAcet No Notes: Jose Francisco zhang am 2-27 (Same l 15:00: as:Keppra) docusate No Notes: Memoria 2-27 (Same as: l 15:00: Colace) (Do Not Crush) senna No Notes: Memoria 2-27 (Same as: l 15:00: Senokot) Saline No Notes: Memoria Flush 0.9% 2-27 (Same as: l 15:00: BD [place] 00 Posiflush) levETIRAcet No Notes: Jose Francisco [...] zhang am 2-27 (Same l 15:00: as:Keppra) [place] 00 docusate No Notes: Memoria 2-27 (Same as: l 15:00: Colace) [place] 00 (Do Not Crush) senna No Notes: Memoria 2-27 (Same as: l 15:00: Senokot) [place] 00 Saline No Notes: Memoria Flush 0.9% 2-27 (Same as: l 15:00: BD [place]ul 00 Posiflush) levETIRAcet No Notes: Jose Francisco zhang am 2-27 (Same l 15:00: as:Keppra) Raul 00 docusate No Notes: Memoria 2-27 (Same as: l 15:00: Colace) [place] 00 (Do Not Crush) senna No Notes: Memoria 2-27 (Same as: l 15:00: Senokot) [place] 00 Saline No Notes: Memoria Flush 0.9% 2-27 (Same as: l 15:00: BD [place] 00 Posiflush) levETIRAcet No Notes: Jose Francisco zhang am 2-27 (Same l 15:00: as:Keppra) [place] 00 docusate No Notes: Memoria 2-27 (Same as: l 15:00: Colace) Raul 00 (Do Not Crush) senna No Notes: Memoria 2-27 (Same as: l 15:00: Senokot) [place] 00 Saline No Notes: Memoria Flush 0.9% 2-27 (Same as: l 15:00: BD Raul 00 Posiflush) levETIRAcet No Notes: Jose Francisco zhang am 2-27 (Same l 15:00: as:Keppra) Raul 00 docusate No Notes: Memoria 2-27 (Same as: l 15:00: Colace) [place] 00 (Do Not Crush) senna No Notes: Memoria 2-27 (Same as: l 15:00: Senokot) [place] 00 Saline No Notes: Memoria Flush 0.9% 2-27 (Same as: l 15:00: BD Raul 00 Posiflush) levETIRAcet No Notes: Jose Francisco zhang am 2-27 (Same l 15:00: as:Keppra) docusate No Notes: Memoria 2-27 (Same as: l 15:00: Colace) Raul (Do Not Crush) senna No Notes: Memoria 2-27 (Same as: l 15:00: Senokot) [place] 00 Saline No Notes: Memoria Flush 0.9% 2-27 (Same as: l 15:00: BD Raul 00 Posiflush) acetaminoph No Notes: Do M emoria en 2- not exceed l 09:01: 4 gm/day. (Same [...] Weight 86.364, kg, Start date: 11/27/22 3:01:00 PSYCHIATRIC ARNP, Duration: 3 doses or times, Stop date: 11/27/22 3:31:00 PSYCHIATRIC ARNP, 0 Tylenol No Notes: Do Memor ia with 2-27 not exceed l Codeine #3 09:01: 4gm/day of H ermann oral tablet 00 acetaminop hen. (Same as: Tylenol with Codeine # 3) tramadol No Notes: Not Mem oria 2- to exceed l 09:01: 400mg/day. [place] (Same As: Ultram) Saline No Notes: Memoria [...] Notes: Memori a - (Same As: l 09:: Dulcolax, Bisco-Lax) ondansetron No Notes: Jose Francisco zhang - (Same as: l 09:: Zofran) MEDICATION WASTE Product Size: 4 mg Product Wasted: ___ mg hydrALAZINE No Notes: Jose Francisco zhang 2-27 (Same as: l 09:01: Apresoline ) Push over 5 minutes labetalol No 10 mg, 2 Jose Francisco zhang 2-27 mL, Route: l 09:01: IVP, Drug form: INJ, Q15Min, Dosing Weight 86.364, kg, Start date: 11/27/22 3:01:00 PSYCHIATRIC ARNP, Duration: 3 doses or times, Stop date: 11/27/22 3:31:00 PSYCHIATRIC ARNP, 0 Tylenol No Notes: Do Memor ia with 2-27 not exceed l Codeine #3 09:01: 4gm/day of H [place] oral tablet 00 acetaminop hen. (Same as: Tylenol with Codeine # 3) tramadol No Notes: Not Mem oria 2-27 to exceed l 09:01: 400mg/day. [place] 00 (Same As: Ultram) Saline No Notes: [...] Weight 86.364, kg, Start date: 11/27/22 3:01:00 PSYCHIATRIC ARNP, Duration: 3 doses or times, Stop date: 11/27/22 3:31:00 PSYCHIATRIC ARNP, 0 Tylenol No Notes: Do Memor ia with 2-27 not exceed l Codeine #3 09:01: 4gm/day of [place] oral tablet 00 acetaminop hen. (Same as: Tylenol with Codeine # 3) tramadol No Notes: Not Mem oria 2-27 to exceed l 09:01: 400mg/day. [place] 00 (Same As: Ultram) Saline No Notes: [...] 11-27 not exceed l 09:01: 4 gm/day. Raul 00 (Same as: Tylenol) bisacodyl No Notes: Memori a - (Same As: l 09:01: Dulcolax, Bisco-Lax) ondansetron [...] Weight 86.364, kg, Start date: 11/27/22 3:01:00 PSYCHIATRIC ARNP, Duration: 3 doses or times, Stop date: 11/27/22 3:31:00 PSYCHIATRIC ARNP, 0 Tylenol No Notes: Do Memor ia with 2-27 not exceed l Codeine #3 09:01: 4gm/day of [place] oral tablet 00 acetaminop hen. (Same as: Tylenol with Codeine # 3) tramadol No Notes: Not Mem oria 2-27 to exceed l 09:01: 400mg/day. Raul 00 (Same As: Ultram) Saline No Notes: Memoria Flush 0.9% 2-27 (Same as: l 09:: BD Posiflush) Insulin No Notes: Memoria regular 2-27 (Same as: l 09:: Humulin R) Roll [...] Weight 86.364, kg, Start date: 11/27/22 3:01:00 PSYCHIATRIC ARNP, Duration: 3 doses or times, Stop date: 11/27/22 3:31:00 PSYCHIATRIC ARNP, 0 Tylenol No Notes: Do Memor ia with 2-27 not exceed l Codeine #3 09:01: 4gm/day of [place] oral tablet 00 acetaminop hen. (Same as: Tylenol with Codeine # 3) tramadol No Notes: Not Mem oria 2-27 to exceed l 09:01: 400mg/day. [place] 00 (Same As: Ultram) Saline No Notes: Memoria Flush 0.9% 2-27 (Same as: l 09:01: BD Raul 00 Posiflush) Insulin No Notes: Memoria regular 2-27 (Same as: l 09:: Humulin R) [place] 00 Roll in palms of hands gently; Do not shake vigorously . WASTE: F/P - Black; E - Municipal Trash Bin Stable for 31 days at room temperatur e Expires in days from ____Date acetaminoph No Notes: Do M emoria en 2- not exceed l 09:01: 4 gm/day. [place] (Same as: Tylenol) bisacodyl No Notes: Memori a 2-27 (Same As: l 09:: Dulcolax, Raul Bisco-Lax) ondansetron No Notes: Jose [...] Weight 86.364, kg, Start date: 11/27/22 3:01:00 PSYCHIATRIC ARNP, Duration: 3 doses or times, Stop date: 11/27/22 3:31:00 PSYCHIATRIC ARNP, 0 Tylenol No Notes: Do Memor ia with 2-27 not exceed l Codeine #3 09:01: 4gm/day of H [place] oral tablet 00 acetaminop hen. (Same as: Tylenol with Codeine # 3) tramadol No Notes: Not Mem oria 2-27 to exceed l 09:01: 400mg/day. [place] 00 (Same As: Ultram) Saline No Notes: Memoria Flush 0.9% 2-27 (Same as: l 09:01: BD [place] Posiflush) Insulin No Notes: Memoria regular -27 (Same as: l 09:: Humulin R) Roll in palms of hands gently; Do not shake vigorously . WASTE: F/P - Black; E - Municipal Trash Bin Stable for 31 days at room temperatur e Expires in days from ____Date acetaminoph No Notes: Do M emoria en - not exceed l 09:01: 4 gm/day. [place] 00 (Same as: Tylenol) bisacodyl No Notes: Memori a - (Same As: l 09:: Dulcolax, Raul 00 [...] Weight 86.364, kg, Start date: 11/27/22 3:01:00 PSYCHIATRIC ARNP, Duration: 3 doses or times, Stop date: 11/27/22 3:31:00 PSYCHIATRIC ARNP, 0 Tylenol No Notes: Do Memor ia with 2-27 not exceed l Codeine #3 09:01: 4gm/day of [place] oral tablet 00 acetaminop hen. (Same as: Tylenol with Codeine # 3) tramadol No Notes: Not Mem oria 2-27 to exceed l 09:01: 400mg/day. Raul (Same As: Ultram) Saline No Notes: Memoria Flush 0.9% - (Same as: l 09:01: BD Raul Posiflush) Insulin 2023-0 No Notes: Memoria regular 2-27 (Same as: l 09:: Humulin R) Raul 00 Roll in palms of hands gently; Do not shake vigorously . WASTE: F/P - Black; E - Municipal Trash Bin Stable for 31 days at room temperatur e Expires in days from ____Date acetaminoph No Notes: Do M emoria en - not exceed l 09:: 4 gm/day. Raul (Same as: Tylenol) bisacodyl No Notes: Memori a - (Same As: l 09:: Dulcolax, Raul 00 Bisco-Lax) ondansetron No Notes: Jose Francisco zhang - (Same as: l 09:: Zofran) MEDICATION WASTE Product Size: 4 mg Product Wasted: ___ mg hydrALAZINE No Notes: Jose Francisco zhang 2-27 (Same as: l 09:: Apresoline ) Push over 5 minutes labetalol No 10 mg, 2 Jose Francisco zhang 2-27 mL, Route: l 09:: IVP, Drug form: INJ, Q15Min, Dosing Weight 86.364, kg, Start date: 11/27/22 3:01:00 PSYCHIATRIC ARNP, Duration: 3 doses or times, Stop date: 11/27/22 3:31:00 PSYCHIATRIC ARNP, 0 Tylenol No Notes: Do Memor ia with 2-27 not exceed l Codeine #3 09:01: 4gm/day of H [place] oral tablet 00 acetaminop hen. (Same as: Tylenol with Codeine # 3) tramadol No Notes: Not Mem oria 2-27 to exceed l 09:01: 400mg/day. Raul (Same As: Ultram) Saline No Notes: Memoria Flush 0.9% 11-27 (Same as: l 09:: BD Raul Posiflush) Insulin No Notes: Memoria regular -27 (Same as: l 09:01: Humulin R) Raul 00 Roll in palms of hands gently; Do not shake vigorously . WASTE: F/P - Black; E - Municipal Trash Bin Stable for 31 days at room temperatur e Expires in days from ____Date acetaminoph 2023-0 No 1,000 mg, M emoria en 11-27 Route: PO, l 06:27: Drug form: Raul 00 TAB, ONCE, Dosing Weight 86.364, kg, Priority: STAT, Start date: 11/27/22 0:27:00 PSYCHIATRIC ARNP, Stop date: 11/27/22 0:27:00 PSYCHIATRIC ARNP Keppra 2023-0 No 1,000 mg, Memori a 11-27 Route: l 06:27: IVPB, Drug [place] form: INJ, ONCE, Dosing Weight 86.364, kg, Loading Dose, Priority: STAT, Start date: 11/27/22 0:27:00 PSYCHIATRIC ARNP, Stop date: 11/27/22 0:27:00 PSYCHIATRIC ARNP acetaminoph 2023-0 No 1,000 mg, M emoria en 11-27 Route: PO, l 06:27: Drug form: Raul 00 TAB, ONCE, Dosing Weight 86.364, kg, Priority: STAT, Start date: 11/27/22 0:27:00 PSYCHIATRIC ARNP, Stop date: 11/27/22 0:27:00 PSYCHIATRIC ARNP Keppra 2023-0 No 1,000 mg, Memori a 11-27 Route: l 06:27: IVPB, Drug [place] form: INJ, ONCE, Dosing Weight 86.364, kg, Loading Dose, Priority: STAT, Start date: 11/27/22 0:27:00 PSYCHIATRIC ARNP, Stop date: 11/27/22 0:27:00 PSYCHIATRIC ARNP acetaminoph 2023-0 No 1,000 mg, M emoria en 11-27 Route: PO, l 06:27: Drug form: [place] 00 TAB, ONCE, Dosing Weight 86.364, kg, Priority: STAT, Start date: 11/27/22 0:27:00 PSYCHIATRIC ARNP, Stop date: 11/27/22 0:27:00 PSYCHIATRIC ARNP Keppra 2023-0 No 1,000 mg, Memori a 11-27 Route: l 06:27: IVPB, Drug Raul 00 form: INJ, ONCE, Dosing Weight 86.364, kg, Loading Dose, Priority: STAT, Start date: 11/27/22 0:27:00 PSYCHIATRIC ARNP, Stop date: 11/27/22 0:27:00 PSYCHIATRIC ARNP acetaminoph 2023-0 No 1,000 mg, M emoria en 11-27 Route: PO, l 06:27: Drug form: Raul 00 TAB, ONCE, Dosing Weight 86.364, kg, Priority: STAT, Start date: 11/27/22 0:27:00 PSYCHIATRIC ARNP, Stop date: 11/27/22 0:27:00 PSYCHIATRIC ARNP Keppra 2023-0 No 1,000 mg, Memori a 11-27 Route: l 06:27: IVPB, Drug [place] 00 form: INJ, ONCE, Dosing Weight 86.364, kg, Loading Dose, Priority: STAT, Start date: 11/27/22 0:27:00 PSYCHIATRIC ARNP, Stop date: 11/27/22 0:27:00 PSYCHIATRIC ARNP acetaminoph 2023-0 No 1,000 mg, M emoria en 11-27 Route: PO, l 06:27: Drug form: Raul 00 TAB, ONCE, Dosing Weight 86.364, kg, Priority: STAT, Start date: 11/27/22 0:27:00 PSYCHIATRIC ARNP, Stop date: 11/27/22 0:27:00 PSYCHIATRIC ARNP Keppra 2023-0 No 1,000 mg, Memori a 11-27 Route: l 06:27: IVPB, Drug [place] 00 form: INJ, ONCE, Dosing Weight 86.364, kg, Loading Dose, Priority: STAT, Start date: 11/27/22 0:27:00 PSYCHIATRIC ARNP, Stop date: 11/27/22 0:27:00 PSYCHIATRIC ARNP acetaminoph 2023-0 No 1,000 mg, M emoria en 11-27 Route: PO, l 06:27: Drug form: [place]ul 00 TAB, ONCE, Dosing Weight 86.364, kg, Priority: STAT, Start date: 11/27/22 0:27:00 PSYCHIATRIC ARNP, Stop date: 11/27/22 0:27:00 PSYCHIATRIC ARNP Keppra 2023-0 No 1,000 mg, Memori a 11-27 Route: l 06:27: IVPB, Drug [place] 00 form: INJ, ONCE, Dosing Weight 86.364, kg, Loading Dose, Priority: STAT, Start date: 11/27/22 0:27:00 PSYCHIATRIC ARNP, Stop date: 11/27/22 0:27:00 PSYCHIATRIC ARNP acetaminoph 2023-0 No 1,000 mg, M emoria en 11-27 Route: PO, l 06:27: Drug form: [place]ul 00 TAB, ONCE, Dosing Weight 86.364, kg, Priority: STAT, Start date: 11/27/22 0:27:00 PSYCHIATRIC ARNP, Stop date: 11/27/22 0:27:00 PSYCHIATRIC ARNP Keppra 3-0 No 1,000 mg, Memori a 11-27 Route: l 06:27: IVPB, Drug [place] 00 form: INJ, ONCE, Dosing Weight 86.364, kg, Loading Dose, Priority: STAT, Start date: 11/27/22 0:27:00 PSYCHIATRIC ARNP, Stop date: 11/27/22 0:27:00 PSYCHIATRIC ARNP acetaminoph 3-0 No 1,000 mg, M emoria en 11-27 Route: PO, l 06:27: Drug form: [place] 00 TAB, ONCE, Dosing Weight 86.364, kg, Priority: STAT, Start date: 11/27/22 0:27:00 PSYCHIATRIC ARNP, Stop date: 11/27/22 0:27:00 PSYCHIATRIC ARNP Keppra 3-0 No 1,000 mg, Memori a 11-27 Route: l 06:27: IVPB, Drug [place] 00 form: INJ, ONCE, Dosing Weight 86.364, kg, Loading Dose, Priority: STAT, Start date: 11/27/22 0:27:00 PSYCHIATRIC ARNP, Stop date: 11/27/22 0:27:00 PSYCHIATRIC ARNP heparin 2022-0 No Notes: Memoria 5000 2-22 [...] day, # 12 tab, 0 Refill(s), Pharmacy: [facility] #[id number], 149.86, cm, 11/21/22 4:11:00 PSYCHIATRIC ARNP, Height, 86.364, kg, 11/21/22 4:11:00 PSYCHIATRIC ARNP, Weight Tylenol 2022-0 No 1 tab, PO, Jose Francisco zhang with 2-22 Q6H, PRN l Codeine #3 19:14: Pain Score H ermann oral tablet 00 4-6, X 3 day, # 12 tab, 0 Refill(s), Pharmacy: [facility] #[id number], 149.86, cm, 11/21/22 4:11:00 PSYCHIATRIC ARNP, Height, 86.364, kg, 11/21/22 4:11:00 PSYCHIATRIC ARNP, Weight Tylenol 2022-0 No 1 tab, PO, Jose Francisco zhang with 2-22 Q6H, PRN l Codeine #3 19:14: Pain Score H ermann oral tablet 00 4-6, X 3 day, # 12 tab, 0 Refill(s), Pharmacy: [facility] #[id number], 149.86, cm, 11/21/22 4:11:00 PSYCHIATRIC ARNP, Height, 86.364, kg, 11/21/22 4:11:00 PSYCHIATRIC ARNP, Weight Tylenol 2022-0 No 1 tab, PO, Jose Francisco zhang with 2-22 Q6H, PRN l Codeine #3 19:14: Pain Score H ermann oral tablet 00 4-6, X 3 day, # 12 tab, 0 Refill(s), Pharmacy: [facility] #[id number], 149.86, cm, 11/21/22 4:11:00 PSYCHIATRIC ARNP, Height, 86.364, kg, 11/21/22 4:11:00 PSYCHIATRIC ARNP, Weight Tylenol 2023-0 No 1 tab, PO, Jose Francisco zhang with 2-22 Q6H, PRN l Codeine #3 19:14: Pain Score H ermann oral tablet 00 4-6, X 3 day, # 12 tab, 0 Refill(s), Pharmacy: [facility] #[id number], 149.86, cm, 11/21/22 4:11:00 PSYCHIATRIC ARNP, Height, 86.364, kg, 11/21/22 4:11:00 PSYCHIATRIC ARNP, Weight Tylenol 2023-0 No 1 tab, PO, Jose Francisco zhang with 2-22 Q6H, PRN l Codeine #3 19:14: Pain Score H ermann oral tablet 00 4-6, X 3 day, # 12 tab, 0 Refill(s), Pharmacy: [facility] #[id number], 149.86, cm, 11/21/22 4:11:00 PSYCHIATRIC ARNP, Height, 86.364, kg, 11/21/22 4:11:00 PSYCHIATRIC ARNP, Weight Tylenol 3-0 No 1 tab, PO, Jose Francisco zhang with 2-22 Q6H, PRN l Codeine #3 19:14: Pain Score H ermann oral tablet 00 4-6, X 3 day, # 12 tab, 0 Refill(s), Pharmacy: [facility] #[id number], 149.86, cm, 11/21/22 4:11:00 PSYCHIATRIC ARNP, Height, 86.364, kg, 11/21/22 4:11:00 PSYCHIATRIC ARNP, Weight Tylenol 2023-0 No 1 tab, PO, Jose Francisco zhang with 2-22 Q6H, PRN l Codeine #3 19:14: Pain Score H ermann oral tablet 00 4-6, X 3 day, # 12 tab, 0 Refill(s), Pharmacy: [facility] #[id number], 149.86, cm, 11/21/22 4:11:00 PSYCHIATRIC ARNP, Height, 86.364, kg, 11/21/22 4:11:00 PSYCHIATRIC ARNP, Weight Tylenol 2023-0 Yes 1 tab, PO, Jose Francisco zhang with 2-22 Q6H, PRN l Codeine #3 19:14: Pain Score H ermann oral tablet 00 4-6, X 3 day, # 12 tab, 0 Refill(s), Pharmacy: [facility] #[id number], 149.86, cm, 11/21/22 4:11:00 PSYCHIATRIC ARNP, Height, 86.364, kg, 11/21/22 4:11:00 PSYCHIATRIC ARNP, Weight Tylenol 2022-0 No 1 tab, PO, Jose Francisco zhang with 2-22 Q6H, PRN l Codeine #3 19:14: Pain Score H ermann oral tablet 00 4-6, X 3 day, # 12 tab, 0 Refill(s), Pharmacy: [facility] #[id number], 149.86, cm, 11/21/22 4:11:00 PSYCHIATRIC ARNP, Height, 86.364, kg, 11/21/22 4:11:00 PSYCHIATRIC ARNP, Weight gabapentin 2022-0 Yes 100 mg = 1 M emoria 100 mg oral 2-22 cap, PO, l capsule 19:13: Daily, # Ajay n 00 10 cap, 0 Refill(s), Pharmacy: [facility] #[id number], 149.86, cm, 11/21/22 4:11:00 PSYCHIATRIC ARNP, Height, 86.364, kg, 11/21/22 4:11:00 PSYCHIATRIC ARNP, Weight Keppra 500 2022-0 Yes 500 mg = 1 M emoria mg oral 2-22 tab, PO, l tablet 19:13: Q12H, # 12 Jessie nn 00 tab, 0 Refill(s), Pharmacy: [facility] #[id number], 149.86, cm, 11/21/22 4:11:00 PSYCHIATRIC ARNP, Height, 86.364, kg, 11/21/22 4:11:00 PSYCHIATRIC ARNP, Weight methocarbam 2022-0 Yes 500 mg = 1 Memoria ol 500 mg 2-22 tab, PO, l oral tablet 19:13: Q8H, X 10 H ermann 00 day, # 30 tab, 0 Refill(s), Pharmacy: [facility] #[id number], 149.86, cm, 11/21/22 4:11:00 PSYCHIATRIC ARNP, Height, 86.364, kg, 11/21/22 4:11:00 PSYCHIATRIC ARNP, Weight Zofran 4 mg 3-0 Yes 4 mg = 1 Me moria oral tablet 2-22 tab, PO, l 19:13: Q8H, PRN Raul 00 Nausea/vom iting, X 7 day, # 21 tab, 0 Refill(s), Pharmacy: [facility] #[id number], 149.86, cm, 11/21/22 4:11:00 PSYCHIATRIC ARNP, Height, 86.364, kg, 11/21/22 4:11:00 PSYCHIATRIC ARNP, Weight gabapentin 2022-0 Yes 100 mg = 1 M emoria 100 mg oral 2-22 cap, PO, l capsule 19:13: Daily, # Ajay n 00 10 cap, 0 Refill(s), Pharmacy: [facility] #[id number], 149.86, cm, 11/21/22 4:11:00 PSYCHIATRIC ARNP, Height, 86.364, kg, 11/21/22 4:11:00 PSYCHIATRIC ARNP, Weight Keppra 500 2022-0 Yes 500 mg = 1 M emoria mg oral 2-22 tab, PO, l tablet 19:13: Q12H, # 12 Jessie nn 00 tab, 0 Refill(s), Pharmacy: [id number], 149.86, cm, 11/21/22 4:11:00 PSYCHIATRIC ARNP, Height, 86.364, kg, 11/21/22 4:11:00 PSYCHIATRIC ARNP, Weight methocarbam 2022-0 Yes 500 mg = 1 Memoria ol 500 mg 2-22 tab, PO, l oral tablet 19:13: Q8H, X 10 H ermann 00 day, # 30 tab, 0 Refill(s), Pharmacy: [facility] #[id number], 149.86, cm, 11/21/22 4:11:00 PSYCHIATRIC ARNP, Height, 86.364, kg, 11/21/22 4:11:00 PSYCHIATRIC ARNP, Weight Zofran 4 mg 3-0 Yes 4 mg = 1 Me moria oral tablet 2-22 tab, PO, l 19:13: Q8H, PRN [place] 00 Nausea/vom iting, X 7 day, # 21 tab, 0 Refill(s), Pharmacy: [facility] #[id number], 149.86, cm, 11/21/22 4:11:00 PSYCHIATRIC ARNP, Height, 86.364, kg, 11/21/22 4:11:00 PSYCHIATRIC ARNP, Weight gabapentin 2022-0 Yes 100 mg = 1 M emoria 100 mg oral 2-22 cap, PO, l capsule 19:13: Daily, # Ajay n 00 10 cap, 0 Refill(s), Pharmacy: [facility] #[id number], 149.86, cm, 11/21/22 4:11:00 PSYCHIATRIC ARNP, Height, 86.364, kg, 11/21/22 4:11:00 PSYCHIATRIC ARNP, Weight Keppra 500 2022-0 Yes 500 mg = 1 M emoria mg oral 2-22 tab, PO, l tablet 19:13: Q12H, # 12 Jessie nn 00 tab, 0 Refill(s), Pharmacy: [facility] #[id number], 149.86, cm, 11/21/22 4:11:00 PSYCHIATRIC ARNP, Height, 86.364, kg, 11/21/22 4:11:00 PSYCHIATRIC ARNP, Weight methocarbam 2022-0 Yes 500 mg = 1 Memoria ol 500 mg 2-22 tab, PO, l oral tablet 19:13: Q8H, X 10 H ermann 00 day, # 30 tab, 0 Refill(s), Pharmacy: [facility] #[id number], 149.86, cm, 11/21/22 4:11:00 PSYCHIATRIC ARNP, Height, 86.364, kg, 11/21/22 4:11:00 PSYCHIATRIC ARNP, Weight Zofran 4 mg 2022-0 Yes 4 mg = 1 Me moria oral tablet 2-22 tab, PO, l 19:13: Q8H, PRN [place] 00 Nausea/vom iting, X 7 day, # 21 tab, 0 Refill(s), Pharmacy: [facility] #[id number], 149.86, cm, 11/21/22 4:11:00 PSYCHIATRIC ARNP, Height, 86.364, kg, 11/21/22 4:11:00 PSYCHIATRIC ARNP, Weight gabapentin 2022-0 Yes 100 mg = 1 M emoria 100 mg oral 2-22 cap, PO, l capsule 19:13: Daily, # Ajay n 00 10 cap, 0 Refill(s), Pharmacy: [facility] #[id number], 149.86, cm, 11/21/22 4:11:00 PSYCHIATRIC ARNP, Height, 86.364, kg, 11/21/22 4:11:00 PSYCHIATRIC ARNP, Weight Keppra 500 2022-0 Yes 500 mg = 1 M emoria mg oral 2-22 tab, PO, l tablet 19:13: Q12H, # 12 Jessie nn 00 tab, 0 Refill(s), Pharmacy: [facility] #[id number], 149.86, cm, 11/21/22 4:11:00 PSYCHIATRIC ARNP, Height, 86.364, kg, 11/21/22 4:11:00 PSYCHIATRIC ARNP, Weight methocarbam 2022-0 Yes 500 mg = 1 Memoria ol 500 mg 2-22 tab, PO, l oral tablet 19:13: Q8H, X 10 H ermann 00 day, # 30 tab, 0 Refill(s), Pharmacy: [facility] #[id number], 149.86, cm, 11/21/22 4:11:00 PSYCHIATRIC ARNP, Height, 86.364, kg, 11/21/22 4:11:00 PSYCHIATRIC ARNP, Weight Zofran 4 mg 2022-0 Yes 4 mg = 1 Me moria oral tablet 2-22 tab, PO, l 19:13: Q8H, PRN Raul 00 Nausea/vom iting, X 7 day, # 21 tab, 0 Refill(s), Pharmacy: [facility] #[id number], 149.86, cm, 11/21/22 4:11:00 PSYCHIATRIC ARNP, Height, 86.364, kg, 11/21/22 4:11:00 PSYCHIATRIC ARNP, Weight gabapentin 2022-0 Yes 100 mg = 1 M emoria 100 mg oral 2-22 cap, PO, l capsule 19:13: Daily, # Ajay n 00 10 cap, 0 Refill(s), Pharmacy: [facility] #[id number], 149.86, cm, 11/21/22 4:11:00 PSYCHIATRIC ARNP, Height, 86.364, kg, 11/21/22 4:11:00 PSYCHIATRIC ARNP, Weight Keppra 500 2022-0 Yes 500 mg = 1 M emoria mg oral 2-22 tab, PO, l tablet 19:13: Q12H, # 12 Jessie nn 00 tab, 0 Refill(s), Pharmacy: [facility] #[id number], 149.86, cm, 11/21/22 4:11:00 PSYCHIATRIC ARNP, Height, 86.364, kg, 11/21/22 4:11:00 PSYCHIATRIC ARNP, Weight methocarbam 2022-0 Yes 500 mg = 1 Memoria ol 500 mg 2-22 tab, PO, l oral tablet 19:13: Q8H, X 10 H ermann 00 day, # 30 tab, 0 Refill(s), Pharmacy: [facility] #[id number], 149.86, cm, 11/21/22 4:11:00 PSYCHIATRIC ARNP, Height, 86.364, kg, 11/21/22 4:11:00 PSYCHIATRIC ARNP, Weight Zofran 4 mg 2022-0 Yes 4 mg = 1 Me moria oral tablet 2-22 tab, PO, l 19:13: Q8H, PRN [place] 00 Nausea/vom iting, X 7 day, # 21 tab, 0 Refill(s), Pharmacy: [facility] #[id number], 149.86, cm, 11/21/22 4:11:00 PSYCHIATRIC ARNP, Height, 86.364, kg, 11/21/22 4:11:00 PSYCHIATRIC ARNP, Weight gabapentin 2022-0 Yes 100 mg = 1 M emoria 100 mg oral 2-22 cap, PO, l capsule 19:13: Daily, # Ajay n 00 10 cap, 0 Refill(s), Pharmacy: [facility] #[id number], 149.86, cm, 11/21/22 4:11:00 PSYCHIATRIC ARNP, Height, 86.364, kg, 11/21/22 4:11:00 PSYCHIATRIC ARNP, Weight Keppra 500 2022-0 Yes 500 mg = 1 M emoria mg oral 2-22 tab, PO, l tablet 19:13: Q12H, # 12 Jessie nn 00 tab, 0 Refill(s), Pharmacy: [facility] #[id number], 149.86, cm, 11/21/22 4:11:00 PSYCHIATRIC ARNP, Height, 86.364, kg, 11/21/22 4:11:00 PSYCHIATRIC ARNP, Weight methocarbam 2022-0 Yes 500 mg = 1 Memoria ol 500 mg 2-22 tab, PO, l oral tablet 19:13: Q8H, X 10 H ermann 00 day, # 30 tab, 0 Refill(s), Pharmacy: [facility] #[id number], 149.86, cm, 11/21/22 4:11:00 PSYCHIATRIC ARNP, Height, 86.364, kg, 11/21/22 4:11:00 PSYCHIATRIC ARNP, Weight Zofran 4 mg 3-0 Yes 4 mg = 1 Me moria oral tablet 2-22 tab, PO, l 19:13: Q8H, PRN [place] 00 Nausea/vom iting, X 7 day, # 21 tab, 0 Refill(s), Pharmacy: [facility] #[id number], 149.86, cm, 11/21/22 4:11:00 PSYCHIATRIC ARNP, Height, 86.364, kg, 11/21/22 4:11:00 PSYCHIATRIC ARNP, Weight gabapentin 2022-0 Yes 100 mg = 1 M emoria 100 mg oral 2-22 cap, PO, l capsule 19:13: Daily, # Ajay n 00 10 cap, 0 Refill(s), Pharmacy: [facility] #[id number], 149.86, cm, 11/21/22 4:11:00 PSYCHIATRIC ARNP, Height, 86.364, kg, 11/21/22 4:11:00 PSYCHIATRIC ARNP, Weight Keppra 500 2022-0 Yes 500 mg = 1 M emoria mg oral 2-22 tab, PO, l tablet 19:13: Q12H, # 12 Jessie nn 00 tab, 0 Refill(s), Pharmacy: [facility] #[id number], 149.86, cm, 11/21/22 4:11:00 PSYCHIATRIC ARNP, Height, 86.364, kg, 11/21/22 4:11:00 PSYCHIATRIC ARNP, Weight methocarbam 2022-0 Yes 500 mg = 1 Memoria ol 500 mg 2-22 tab, PO, l oral tablet 19:13: Q8H, X 10 H ermann 00 day, # 30 tab, 0 Refill(s), Pharmacy: [facility] #[id number], 149.86, cm, 11/21/22 4:11:00 PSYCHIATRIC ARNP, Height, 86.364, kg, 11/21/22 4:11:00 PSYCHIATRIC ARNP, Weight Zofran 4 mg 2022-0 Yes 4 mg = 1 Me moria oral tablet 2-22 tab, PO, l 19:13: Q8H, PRN Raul 00 Nausea/vom iting, X 7 day, # 21 tab, 0 Refill(s), Pharmacy: [facility] #[id number], 149.86, cm, 11/21/22 4:11:00 PSYCHIATRIC ARNP, Height, 86.364, kg, 11/21/22 4:11:00 PSYCHIATRIC ARNP, Weight gabapentin 3-0 Yes 100 mg = 1 M emoria 100 mg oral 2-22 cap, PO, l capsule 19:13: Daily, # Ajay n 00 10 cap, 0 Refill(s), Pharmacy: [facility] #[id number], 149.86, cm, 11/21/22 4:11:00 PSYCHIATRIC ARNP, Height, 86.364, kg, 11/21/22 4:11:00 PSYCHIATRIC ARNP, Weight Keppra 500 3-0 Yes 500 mg = 1 M emoria mg oral 2-22 tab, PO, l tablet 19:13: Q12H, # 12 Jessie nn 00 tab, 0 Refill(s), Pharmacy: [facility] #[id number], 149.86, cm, 11/21/22 4:11:00 PSYCHIATRIC ARNP, Height, 86.364, kg, 11/21/22 4:11:00 PSYCHIATRIC ARNP, Weight methocarbam 2022-0 Yes 500 mg = 1 Memoria ol 500 mg 2-22 tab, PO, l oral tablet 19:13: Q8H, X 10 H ermann 00 day, # 30 tab, 0 Refill(s), Pharmacy: [facility] #[id number], 149.86, cm, 11/21/22 4:11:00 PSYCHIATRIC ARNP, Height, 86.364, kg, 11/21/22 4:11:00 PSYCHIATRIC ARNP, Weight Zofran 4 mg 2023-0 Yes 4 mg = 1 Me moria oral tablet 2-22 tab, PO, l 19:13: Q8H, PRN [place] 00 Nausea/vom iting, X 7 day, # 21 tab, 0 Refill(s), Pharmacy: [facility] #[id number], 149.86, cm, 11/21/22 4:11:00 PSYCHIATRIC ARNP, Height, 86.364, kg, 11/21/22 4:11:00 PSYCHIATRIC ARNP, Weight gabapentin 2022-0 Yes 100 mg = 1 M emoria 100 mg oral 2-22 cap, PO, l capsule 19:13: Daily, # Ajay n 00 10 cap, 0 Refill(s), Pharmacy: [facility] #[id number], 149.86, cm, 11/21/22 4:11:00 PSYCHIATRIC ARNP, Height, 86.364, kg, 11/21/22 4:11:00 PSYCHIATRIC ARNP, Weight Keppra 500 2022-0 Yes 500 mg = 1 M emoria mg oral 2-22 tab, PO, l tablet 19:13: Q12H, # 12 Jessie nn 00 tab, 0 Refill(s), Pharmacy: [facility] #[id number], 149.86, cm, 11/21/22 4:11:00 PSYCHIATRIC ARNP, Height, 86.364, kg, 11/21/22 4:11:00 PSYCHIATRIC ARNP, Weight methocarbam 2022-0 Yes 500 mg = 1 Memoria ol 500 mg 2-22 tab, PO, l oral tablet 19:13: Q8H, X 10 H ermann 00 day, # 30 tab, 0 Refill(s), Pharmacy: [facility] #[id number], 149.86, cm, 11/21/22 4:11:00 PSYCHIATRIC ARNP, Height, 86.364, kg, 11/21/22 4:11:00 PSYCHIATRIC ARNP, Weight Zofran 4 mg 2022-0 Yes 4 mg = 1 Me moria oral tablet 2-22 tab, PO, l 19:13: Q8H, PRN [place] 00 Nausea/vom iting, X 7 day, # 21 tab, 0 Refill(s), Pharmacy: [facility] #[id number], 149.86, cm, 11/21/22 4:11:00 PSYCHIATRIC ARNP, Height, 86.364, kg, 11/21/22 4:11:00 PSYCHIATRIC ARNP, Weight gabapentin 2022-0 Yes 100 mg = 1 M emoria 100 mg oral 2-22 cap, PO, l capsule 19:13: Daily, # Ajay n 00 10 cap, 0 Refill(s), Pharmacy: [facility] #[id number], 149.86, cm, 11/21/22 4:11:00 PSYCHIATRIC ARNP, Height, 86.364, kg, 11/21/22 4:11:00 PSYCHIATRIC ARNP, Weight Keppra 500 Yes 500 mg = 1 M emoria mg oral 2-22 tab, PO, l tablet 19:13: Q12H, # 12 Jessie nn 00 tab, 0 Refill(s), Pharmacy: [facility] #[id number], 149.86, cm, 11/21/22 4:11:00 PSYCHIATRIC ARNP, Height, 86.364, kg, 11/21/22 4:11:00 PSYCHIATRIC ARNP, Weight methocarbam Yes 500 mg = 1 Memoria ol 500 mg 2-22 tab, PO, l oral tablet 19:13: Q8H, X 10 H ermann 00 day, # 30 tab, 0 Refill(s), Pharmacy: [facility] #[id number], 149.86, cm, 11/21/22 4:11:00 PSYCHIATRIC ARNP, Height, 86.364, kg, 11/21/22 4:11:00 PSYCHIATRIC ARNP, Weight Zofran 4 mg Yes 4 mg = 1 Me moria oral tablet 2-22 tab, PO, l 19:13: Q8H, PRN [place] 00 Nausea/vom iting, X 7 day, # 21 tab, 0 Refill(s), Pharmacy: [facility] #[id number], 149.86, cm, 11/21/22 4:11:00 PSYCHIATRIC ARNP, Height, 86.364, kg, 11/21/22 4:11:00 PSYCHIATRIC ARNP, Weight donepezil No Notes: Memori a 2-22 (Same as: l 15:00: Aricept) [place] 00 ferrous No Notes: Memoria sulfate 2-22 Give with l 15:00: food. "Do Raul 00 Not Crush" Lasix No Notes: Memoria 2-22 (Same as: l 15:00: Lasix) May 00 cause GI upset. Give with food or milk. levothyroxi No Notes: Jose Francisco zhang ne 2-22 Take 1 l 15:00: hour [place] 00 before or 2 hours after meal; [...] 00 mg, Route: PO, Daily, 11/22/22 9:00:00 PSYCHIATRIC ARNP, Duration: 30 day, Stop date: 12/21/22 9:00:00 CDT donepezil No Notes: Memori a 2-22 (Same as: l 15:00: Aricept) [place] 00 ferrous No Notes: Memoria sulfate 2-22 [...] 00 mg, Route: PO, Daily, 11/22/22 9:00:00 PSYCHIATRIC ARNP, Duration: 30 day, Stop date: 12/21/22 9:00:00 [...] ne 2-22 Take 1 l 15:00: hour [place] 00 before or 2 hours after meal; [...] 00 mg, Route: PO, Daily, 11/22/22 9:00:00 PSYCHIATRIC ARNP, Duration: 30 day, Stop date: 12/21/22 9:00:00 CDT donepezil No Notes: Memori a 2-22 (Same as: l 15:00: Aricept) [place] 00 ferrous No Notes: Memoria sulfate 2-22 [...] 00 mg, Route: PO, Daily, 11/22/22 9:00:00 PSYCHIATRIC ARNP, Duration: 30 day, Stop date: 12/21/22 9:00:00 CDT donepezil No Notes: Memori a 2-22 (Same as: l 15:00: Aricept) [place] ferrous No Notes: Memoria sulfate 2-22 Give with l 15:00: food. "Do [place] 00 Not Crush" Lasix No Notes: Memoria 2-22 (Same as: l 15:00: Lasix) January cause GI upset. Give with food or milk. levothyroxi No Notes: Jose Francisco zhang ne 2-22 Take 1 l 15:00: hour [place] 00 before or 2 hours after meal; [...] 00 mg, Route: PO, Daily, 11/22/22 9:00:00 PSYCHIATRIC ARNP, Duration: 30 day, Stop date: 12/21/22 9:00:00 CDT donepezil No Notes: Memori a 2-22 (Same as: l 15:00: Aricept) Raul ferrous No Notes: Memoria sulfate 2-22 Give with l 15:00: food. "Do [place] 00 Not Crush" Lasix No Notes: Memoria 2-22 (Same as: l 15:00: Lasix) January [place] 00 cause GI upset. Give with food or milk. levothyroxi No Notes: Jose Francisco zhang ne 2-22 Take 1 l 15:00: hour [place] 00 before or 2 hours after meal; [...] 00 mg, Route: PO, Daily, 11/22/22 9:00:00 PSYCHIATRIC ARNP, Duration: 30 day, Stop date: 12/21/22 9:00:00 CDT donepezil No Notes: Memori a 2-22 (Same as: l 15:00: Aricept) Raul 00 ferrous No Notes: Memoria sulfate 2-22 Give with l 15:00: food. "Do Raul 00 Not Crush" Lasix No Notes: Memoria 2-22 (Same as: l 15:00: Lasix) May 00 cause GI upset. Give with food [...] 00 mg, Route: PO, Daily, 11/22/22 9:00:00 PSYCHIATRIC ARNP, Duration: 30 day, Stop date: 12/21/22 9:00:00 CDT donepezil No Notes: Memori a 2-22 (Same as: l 15:00: Aricept) [place] 00 ferrous No Notes: Memoria sulfate 2-22 [...] 00 mg, Route: PO, Daily, 11/22/22 9:00:00 PSYCHIATRIC ARNP, Duration: 30 day, Stop date: 12/21/22 9:00:00 CDT Keppra 500 No Notes: Memor ia mg oral 2-22 (Same l tablet 03:00: as:Keppra) Jessie nn 00 Coreg No Notes: Memoria 2-22 Give with l 03:00: food. [place] (Same As: Coreg) Lexapro No 20 mg, 2 Memori a 2-22 tab, l 03:00: Route: PO, Drug form: TAB, Q12H, Dosing Weight 86.364, kg, 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/22 21:00:00 PSYCHIATRIC ARNP, Duration: 30 day, Stop date: 12/21/22 9:00:00 CDT, 0 Pepcid 40 No Notes: Memori a mg oral 2-22 (Same as: l tablet 03:00: Pepcid) lovastatin No 20 mg, 1 Mem oria 2-22 tab, l 03:00: Route: PO, Drug form: TAB, Bedtime, Dosing Weight 86.364, kg, 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/22 21:00:00 PSYCHIATRIC ARNP, Duration: 30 day, Stop date: 12/20/22 21:00:00 CDT primidone 2022-0 No 50 mg, 1 Jose Francisco zhang 2-22 tab, l 03:00: Route: PO, Drug form: TAB, Bedtime, Dosing Weight 86.364, kg, 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/22 21:00:00 PSYCHIATRIC ARNP, Duration: 30 day, Stop date: 12/20/22 21:00:00 CDT, 0 rOPINIRole 2022-0 No 4 mg, 2 Jose Francisco zhang 2-22 tab, l 03:00: Route: PO, Drug form: TAB, Q12H, Dosing Weight 86.364, kg, 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/22 21:00:00 PSYCHIATRIC ARNP, Duration: 30 day, Stop date: 12/21/22 9:00:00 [...] Weight 86.364, kg, 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/22 21:00:00 PSYCHIATRIC ARNP, Duration: 30 day, Stop date: 12/21/22 9:00:00 CDT, 0 Pepcid 40 No Notes: Memori a mg oral 2-22 (Same as: l tablet 03:00: Pepcid) lovastatin 0 No 20 mg, 1 Mem oria 2-22 tab, l 03:00: Route: PO, Drug form: TAB, Bedtime, Dosing Weight 86.364, kg, 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/22 21:00:00 PSYCHIATRIC ARNP, Duration: 30 day, Stop date: 12/20/22 21:00:00 CDT primidone 2022-0 No 50 mg, 1 Jose Francisco zhang 2-22 tab, l 03:00: Route: PO, Drug form: TAB, Bedtime, Dosing Weight 86.364, kg, 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/22 21:00:00 PSYCHIATRIC ARNP, Duration: 30 day, Stop date: 12/20/22 21:00:00 CDT, 0 rOPINIRole 2022-0 No 4 mg, 2 Jose Francisco zhang 2-22 tab, l 03:00: Route: PO, Drug form: TAB, Q12H, Dosing Weight 86.364, kg, 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/22 21:00:00 PSYCHIATRIC ARNP, Duration: 30 day, Stop date: 12/21/22 9:00:00 CDT, 0 Lipitor 2022-0 No Notes: Memoria 2-22 (Same As: l 03:00: Lipitor) Keppra 500 0 No Notes: Memor ia mg oral 2-22 (Same l tablet 03:00: as:Keppra) Jessie Coreg 0 No Notes: [facility]oria 2-22 Give with l 03:00: food. (Same As: Coreg) Lexapro 2022-0 No 20 mg, 2 Memori a 2-22 tab, l 03:00: Route: PO, Drug form: TAB, Q12H, Dosing Weight 86.364, kg, 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/22 21:00:00 PSYCHIATRIC ARNP, Duration: 30 day, Stop date: 12/21/22 9:00:00 CDT, 0 Pepcid 40 2022-0 No Notes: Memori a mg oral 2-22 (Same as: l tablet 03:00: Pepcid) lovastatin 0 No 20 mg, 1 Mem oria 2-22 tab, l 03:00: Route: PO, Drug form: TAB, Bedtime, Dosing Weight 86.364, kg, 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/22 21:00:00 PSYCHIATRIC ARNP, Duration: 30 day, Stop date: 12/20/22 21:00:00 CDT primidone 2022-0 No 50 mg, 1 Jose Francisco zhang 2-22 tab, l 03:00: Route: PO, Drug form: TAB, Bedtime, Dosing Weight 86.364, kg, 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/22 21:00:00 PSYCHIATRIC ARNP, Duration: 30 day, Stop date: 12/20/22 21:00:00 CDT, 0 rOPINIRole 0 No 4 mg, 2 Jose Francisco zhang 2-22 tab, l 03:00: Route: PO, Drug form: TAB, Q12H, Dosing Weight 86.364, kg, 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/22 21:00:00 PSYCHIATRIC ARNP, Duration: 30 day, Stop date: 12/21/22 9:00:00 [...] Weight 86.364, kg, 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/22 21:00:00 PSYCHIATRIC ARNP, Duration: 30 day, Stop date: 12/21/22 9:00:00 CDT, 0 Pepcid 40 2022-0 No Notes: Memori a mg oral 2-22 (Same as: l tablet 03:00: Pepcid) lovastatin 2022-0 No 20 mg, 1 Mem oria 2-22 tab, l 03:00: Route: PO, Drug form: TAB, Bedtime, Dosing Weight 86.364, kg, 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/22 21:00:00 PSYCHIATRIC ARNP, Duration: 30 day, Stop date: 12/20/22 21:00:00 CDT primidone 2022-0 No 50 mg, 1 Jose Francisco zhang 2-22 tab, l 03:00: Route: PO, Drug form: TAB, Bedtime, Dosing Weight 86.364, kg, 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/22 21:00:00 PSYCHIATRIC ARNP, Duration: 30 day, Stop date: 12/20/22 21:00:00 CDT, 0 rOPINIRole 2022-0 No 4 mg, 2 Jose Francisco zhang 2-22 tab, l 03:00: Route: PO, Drug form: TAB, Q12H, Dosing Weight 86.364, kg, 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/22 21:00:00 PSYCHIATRIC ARNP, Duration: 30 day, Stop date: 12/21/22 9:00:00 [...] Weight 86.364, kg, 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/22 21:00:00 PSYCHIATRIC ARNP, Duration: 30 day, Stop date: 12/21/22 9:00:00 CDT, 0 Pepcid 40 2022-0 No Notes: Memori a mg oral 2-22 (Same as: l tablet 03:00: Pepcid) lovastatin 2022-0 No 20 mg, 1 Mem oria 2-22 tab, l 03:00: Route: PO, Drug form: TAB, Bedtime, Dosing Weight 86.364, kg, 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/22 21:00:00 PSYCHIATRIC ARNP, Duration: 30 day, Stop date: 12/20/22 21:00:00 CDT primidone 2022-0 No 50 mg, 1 Jose Francisco zhang 2-22 tab, l 03:00: Route: PO, Drug form: TAB, Bedtime, Dosing Weight 86.364, kg, 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/22 21:00:00 PSYCHIATRIC ARNP, Duration: 30 day, Stop date: 12/20/22 21:00:00 CDT, 0 rOPINIRole 2022-0 No 4 mg, 2 Jose Francisco zhang 2-22 tab, l 03:00: Route: PO, Drug form: TAB, Q12H, Dosing Weight 86.364, kg, 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/22 21:00:00 PSYCHIATRIC ARNP, Duration: 30 day, Stop date: 12/21/22 9:00:00 [...] Weight 86.364, kg, 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/22 21:00:00 PSYCHIATRIC ARNP, Duration: 30 day, Stop date: 12/21/22 9:00:00 CDT, 0 Pepcid 40 2022-0 No Notes: Memori a mg oral 2-22 (Same as: l tablet 03:00: Pepcid) lovastatin 2022-0 No 20 mg, 1 Mem oria 2-22 tab, l 03:00: Route: PO, Drug form: TAB, Bedtime, Dosing Weight 86.364, kg, 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/22 21:00:00 PSYCHIATRIC ARNP, Duration: 30 day, Stop date: 12/20/22 21:00:00 CDT primidone 2022-0 No 50 mg, 1 Jose Francisco zhang 2-22 tab, l 03:00: Route: PO, Drug form: TAB, Bedtime, Dosing Weight 86.364, kg, 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/22 21:00:00 PSYCHIATRIC ARNP, Duration: 30 day, Stop date: 12/20/22 21:00:00 CDT, 0 rOPINIRole 3-0 No 4 mg, 2 Jose Francisco zhang 2-22 tab, l 03:00: Route: PO, Drug form: TAB, Q12H, Dosing Weight 86.364, kg, 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/22 21:00:00 PSYCHIATRIC ARNP, Duration: 30 day, Stop date: 12/21/22 9:00:00 CDT, 0 Lipitor 2022-0 No Notes: [facility]oria 2-22 (Same As: l 03:00: Lipitor) Keppra 500 2022-0 No Notes: Memor ia mg oral 2-22 (Same l tablet 03:00: as:Keppra) Coreg 2022-0 No Notes: [facility]oria 2-22 Give with l 03:00: food. (Same As: Coreg) Lexapro 3-0 No 20 mg, 2 Memori a 2-22 tab, l 03:00: Route: PO, Drug form: TAB, Q12H, Dosing Weight 86.364, kg, 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/22 21:00:00 PSYCHIATRIC ARNP, Duration: 30 day, Stop date: 12/21/22 9:00:00 CDT, 0 Pepcid 40 2022-0 No Notes: Memori a mg oral 2-22 (Same as: l tablet 03:00: Pepcid) lovastatin 2022-0 No 20 mg, 1 Mem oria 2-22 tab, l 03:00: Route: PO, Drug form: TAB, Bedtime, Dosing Weight 86.364, kg, 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/22 21:00:00 PSYCHIATRIC ARNP, Duration: 30 day, Stop date: 12/20/22 21:00:00 CDT primidone 3-0 No 50 mg, 1 Jose Francisco zhang 2-22 tab, l 03:00: Route: PO, Drug form: TAB, Bedtime, Dosing Weight 86.364, kg, 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/22 21:00:00 PSYCHIATRIC ARNP, Duration: 30 day, Stop date: 12/20/22 21:00:00 CDT, 0 rOPINIRole 2023-0 No 4 mg, 2 Jose Francisco zhang 2-22 tab, l 03:00: Route: PO, Drug form: TAB, Q12H, Dosing Weight 86.364, kg, 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/22 21:00:00 PSYCHIATRIC ARNP, Duration: 30 day, Stop date: 12/21/22 9:00:00 CDT, 0 Lipitor 2022-0 No Notes: Memoria 2-22 (Same As: l 03:00: Lipitor) Keppra 500 0 No Notes: Memor ia mg oral 2-22 (Same l tablet 03:00: as:Keppra) Jessie Coreg 0 No Notes: Memoria 2-22 Give with l 03:00: food. (Same As: Coreg) Lexapro 2022-0 No 20 mg, 2 Memori a 2-22 tab, l 03:00: Route: PO, Drug form: TAB, Q12H, Dosing Weight 86.364, kg, 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/22 21:00:00 PSYCHIATRIC ARNP, Duration: 30 day, Stop date: 12/21/22 9:00:00 CDT, 0 Pepcid 40 2022-0 No Notes: Memori a mg oral 2-22 (Same as: l tablet 03:00: Pepcid) lovastatin 2022-0 No 20 mg, 1 Mem oria 2-22 tab, l 03:00: Route: PO, Drug form: TAB, Bedtime, Dosing Weight 86.364, kg, 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/22 21:00:00 PSYCHIATRIC ARNP, Duration: 30 day, Stop date: 12/20/22 21:00:00 CDT primidone 2022-0 No 50 mg, 1 Jose Francisco zhang 2-22 tab, l 03:00: Route: PO, Drug form: TAB, Bedtime, Dosing Weight 86.364, kg, 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/22 21:00:00 PSYCHIATRIC ARNP, Duration: 30 day, Stop date: 12/20/22 21:00:00 CDT, 0 rOPINIRole 2022-0 No 4 mg, 2 Jose Francisco zhang 2-22 tab, l 03:00: Route: PO, Drug form: TAB, Q12H, Dosing Weight 86.364, kg, 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/22 21:00:00 PSYCHIATRIC ARNP, Duration: 30 day, Stop date: 12/21/22 9:00:00 CDT, 0 Lipitor No Notes: Memoria 2-22 (Same As: l 03:00: Lipitor) Raul 00 Robaxin No Notes: Memoria 2-22 (Same l 00:27: as:Robaxin [place] 00 ) Robaxin No Notes: Memoria 2-22 (Same l 00:27: as:Robaxin [place] 00 ) Robaxin No Notes: Memoria 2-22 (Same l 00:27: as:Robaxin [place] 00 ) Robaxin No Notes: Memoria 2-22 (Same l 00:27: as:Robaxin Ra[place] 00 ) Robaxin No Notes: Memoria 2-22 (Same l 00:27: as:Robaxin [place] 00 ) Robaxin No Notes: Memoria 2-22 (Same l 00:27: as:Robaxin [place] 00 ) Robaxin No Notes: Memoria 2-22 (Same l 00:27: as:Robaxin [place] 00 ) Robaxin No Notes: Memoria 2-22 (Same l [...] capsule 00:16: Neurontin) Herm bernie 00 normal 2023-0 No 1,000 mL, Memori a saline 0.9% 2-21 Rate: 75 l IV 1,000 mL 22:13: ml/hr, Herm bernie 00 Infuse over: 13.3 hr, Route: IV, Dosing Weight 86.364 kg, Total Volume: 1,000, 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/22 16:13:00 PSYCHIATRIC ARNP, Duration: 30 day, Stop date: 12/21/22 16:12:00 CDT, BSA: 1.93 m2, 0 normal 2023-0 No 1,000 mL, Memori a saline 0.9% 2-21 Rate: 75 l IV 1,000 mL 22:13: ml/hr, Herm bernie 00 Infuse over: 13.3 hr, Route: IV, Dosing Weight 86.364 kg, Total Volume: 1,000, 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/22 16:13:00 PSYCHIATRIC ARNP, Duration: 30 day, Stop date: 12/21/22 16:12:00 CDT, BSA: 1.93 m2, 0 normal 2023-0 No 1,000 mL, Memori a saline 0.9% 2-21 Rate: 75 l IV 1,000 mL 22:13: ml/hr, Herm bernie 00 Infuse over: 13.3 hr, Route: IV, Dosing Weight 86.364 kg, Total Volume: 1,000, 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/22 16:13:00 PSYCHIATRIC ARNP, Duration: 30 day, Stop date: 12/21/22 16:12:00 CDT, BSA: 1.93 m2, 0 normal 2023-0 No 1,000 mL, Memori a saline 0.9% 2-21 Rate: 75 l IV 1,000 mL 22:13: ml/hr, Herm bernie 00 Infuse over: 13.3 hr, Route: IV, Dosing Weight 86.364 kg, Total Volume: 1,000, 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/22 16:13:00 PSYCHIATRIC ARNP, Duration: 30 day, Stop date: 12/21/22 16:12:00 CDT, BSA: 1.93 m2, 0 normal 2023-0 No 1,000 mL, Memori a saline 0.9% 2-21 Rate: 75 l IV 1,000 mL 22:13: ml/hr, Herm bernie 00 Infuse over: 13.3 hr, Route: IV, Dosing Weight 86.364 kg, Total Volume: 1,000, 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/22 16:13:00 PSYCHIATRIC ARNP, Duration: 30 day, Stop date: 12/21/22 16:12:00 CDT, BSA: 1.93 m2, 0 normal 2023-0 No 1,000 mL, Memori a saline 0.9% 2-21 Rate: 75 l IV 1,000 mL 22:13: ml/hr, Herm bernie 00 Infuse over: 13.3 hr, Route: IV, Dosing Weight 86.364 kg, Total Volume: 1,000, 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/22 16:13:00 PSYCHIATRIC ARNP, Duration: 30 day, Stop date: 12/21/22 16:12:00 CDT, BSA: 1.93 m2, 0 normal 2023-0 No 1,000 mL, Memori a saline 0.9% 2-21 Rate: 75 l IV 1,000 mL 22:13: ml/hr, Herm bernie Infuse over: 13.3 hr, Route: IV, Dosing Weight 86.364 kg, Total Volume: 1,000, 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/22 16:13:00 PSYCHIATRIC ARNP, Duration: 30 day, Stop date: 12/21/22 16:12:00 CDT, BSA: 1.93 m2, 0 normal 2023-0 No 1,000 mL, Memori a saline 0.9% 2-21 Rate: 75 l IV 1,000 mL 22:13: ml/hr, Herm bernie Infuse over: 13.3 hr, Route: IV, Dosing Weight 86.364 kg, Total Volume: 1,000, 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/22 16:13:00 PSYCHIATRIC ARNP, Duration: 30 day, Stop date: 12/21/22 16:12:00 CDT, BSA: 1.93 m2, 0 Vitamin D2 3-0 Yes 50,000 Memor ia 50,000 intl 2-21 IntlUnit = l units (1.25 18:29: 1 cap, PO, Raul mg) oral 00 qWeek, capsule then 1 cap qmonth, 0 Refill(s) Voltaren 3-0 Yes 2 gm, TOP, Mem oria Topical [...] l units (1.25 18:29: 1 cap, PO, [place] mg) oral 00 qWeek, capsule then 1 cap qmonth, 0 Refill(s) Voltaren 0 Yes 2 gm, TOP, Mem oria Topical 1% 2-21 QID, PRN, l topical gel 18:29: 0 Ajay n 00 Refill(s) Vitamin D2 Yes 50,000 Memor ia 50,000 intl 2-21 IntlUnit = l units (1.25 18:29: 1 cap, PO, [place] mg) oral 00 qWeek, capsule then 1 cap qmonth, 0 Refill(s) Voltaren 0 Yes 2 gm, TOP, Mem oria Topical 1% 2-21 QID, PRN, l topical gel 18:29: 0 Ajay n 00 Refill(s) Vitamin D2 Yes 50,000 Memor ia 50,000 intl 2-21 IntlUnit = l units (1.25 18:29: 1 cap, PO, [place] mg) oral 00 qWeek, capsule then 1 cap qmonth, 0 Refill(s) Voltaren 0 Yes 2 gm, TOP, Mem oria Topical 1% 2-21 QID, PRN, l topical gel 18:29: 0 Ajay n 00 Refill(s) Vitamin D2 Yes 50,000 Memor ia 50,000 intl 2-21 IntlUnit = l units (1.25 18:29: 1 cap, PO, [place] mg) oral 00 qWeek, capsule then 1 cap qmonth, 0 Refill(s) Voltaren 0 Yes 2 gm, TOP, Mem oria Topical 1% 2-21 QID, PRN, l topical gel 18:29: 0 Ajay n 00 Refill(s) Vitamin D2 Yes 50,000 Memor ia 50,000 intl 2-21 IntlUnit = l units (1.25 18:29: 1 cap, PO, [place] mg) oral 00 qWeek, capsule then 1 [...] then 1 cap qmonth, 0 Refill(s) fluocinonid 2023-0 Yes 1 appl, Mem [...] TOP, BID, l 2% cream 18:28: 0 [place] 00 Refill(s) halobetasol 2023-0 Yes 1 appl, Mem oria topical 2-21 TOP, BID, l 0.05% cream 18:28: PRN, 0 Herm bernie 00 Refill(s) fluocinonid 3-0 Yes 1 appl, Mem oria e topical 2-21 TOP, BID, l 0.05% 18:28: 0 [place] solution 00 Refill(s) ketoconazol 2023-0 Yes 1 appl, Mem oria e topical 2-21 TOP, BID, l 2% cream 18:28: 0 [place] 00 Refill(s) halobetasol 2023-0 Yes 1 appl, Mem oria topical 2-21 TOP, BID, l 0.05% cream 18:28: PRN, 0 Herm bernie 00 Refill(s) fluocinonid 2023-0 Yes 1 appl, Mem oria e topical 2-21 TOP, BID, l 0.05% 18:28: 0 [place] solution 00 Refill(s) ketoconazol 2023-0 Yes 1 appl, Mem oria e topical 2-21 TOP, BID, l 2% cream 18:28: 0 Raul 00 Refill(s) halobetasol 2023-0 Yes 1 appl, Mem oria topical 2-21 TOP, BID, l 0.05% cream 18:28: PRN, 0 Herm bernie 00 Refill(s) fluocinonid 2023-0 Yes 1 appl, Mem oria e topical 2-21 TOP, BID, l 0.05% 18:28: 0 [place] solution 00 Refill(s) ketoconazol 2023-0 Yes 1 [...] 2-21 TOP, BID, l 0.05% 18:28: 0 [place] solution 00 Refill(s) ketoconazol 2023-0 Yes 1 appl, Mem oria e topical 2-21 TOP, BID, l 2% cream 18:28: 0 [place] 00 Refill(s) halobetasol 2023-0 Yes 1 appl, [...] TOP, BID, l 2% cream 18:28: 0 [place] 00 Refill(s) halobetasol 2022-0 Yes 1 appl, Mem oria topical 2-21 TOP, BID, l 0.05% cream 18:28: PRN, 0 Herm bernie 00 Refill(s) fluocinonid 0 Yes 1 appl, Mem oria e topical 2-21 TOP, BID, l 0.05% 18:28: 0 Raul solution 00 Refill(s) ketoconazol 2022-0 Yes 1 appl, Mem oria e topical 2-21 TOP, BID, l 2% cream 18:28: 0 [place] 00 Refill(s) halobetasol 2022-0 Yes 1 appl, [...] 2-21 tab, PO, l 18:27: Daily, 0 [place] 00 Refill(s) Pepcid 40 2022-0 Yes 40 [...] 2-21 tab, PO, l 18:27: Daily, 0 [place] 00 Refill(s) Pepcid 40 2022-0 Yes 40 [...] 2-21 tab, PO, l 18:27: Daily, 0 [place] 00 Refill(s) Pepcid 40 2022-0 Yes 40 [...] 2-21 tab, PO, l 18:27: Daily, 0 [place] 00 Refill(s) Pepcid 40 2022-0 Yes 40 [...] tab, PO, l tablet 18:26: Daily, 0 [place] 00 Refill(s) donepezil 2022-0 Yes 10 mg [...] tab, PO, l tablet 18:26: Daily, 0 [place] 00 Refill(s) lovastatin 2022-0 Yes 20 mg = 1 Me moria 20 mg oral 2-21 tab, PO, l tablet 18:26: Daily, 0 [place] 00 Refill(s) donepezil 2022-0 Yes 10 mg = 1 Mem oria 10 mg oral 2-21 tab, PO, l tablet 18:26: Daily, 0 [place] 00 Refill(s) NIFEdipine 2022-0 Yes 30 mg [...] tab, PO, l tablet 18:26: Daily, 0 [place] 00 Refill(s) donepezil 2022-0 Yes 10 mg [...] tab, PO, l tablet 18:26: Daily, 0 [place] 00 Refill(s) NIFEdipine 2022-0 Yes 30 mg = 1 Me moria (Eqv-Procar 2-21 tab, PO, l afua XL) 30 18:26: Daily, 0 Her ivory mg oral 00 Refill(s) tablet, extended release Kerendia 10 2022-0 Yes 10 mg = 1 M emoria mg oral 2-21 tab, PO, l tablet 18:26: Daily, 0 [place] 00 Refill(s) lovastatin 2022-0 Yes 20 mg = 1 Me moria 20 mg oral 2-21 tab, PO, l tablet 18:26: Daily, 0 [place] 00 Refill(s) donepezil 3-0 Yes 10 mg = 1 Mem oria 10 mg oral 2-21 tab, PO, l tablet 18:26: Daily, 0 [place] 00 Refill(s) NIFEdipine 3-0 Yes 30 mg = 1 Me moria [...] tab, PO, l tablet 18:26: Daily, 0 [place] 00 Refill(s) donepezil 2022-0 Yes 10 mg = 1 Mem oria 10 mg oral 2-21 tab, PO, l tablet 18:26: Daily, 0 [place] 00 Refill(s) NIFEdipine 2022-0 Yes 30 mg = 1 Me moria (Eqv-Procar 2-21 tab, PO, l afua XL) 30 18:26: Daily, 0 Her ivory mg oral 00 Refill(s) tablet, extended release Kerendia 10 Yes 10 mg = 1 M emoria mg oral 2-21 tab, PO, l tablet 18:26: Daily, 0 [place] 00 Refill(s) lovastatin 2022-0 Yes 20 mg [...] tab, PO, l tablet 18:26: Daily, 0 [place] 00 Refill(s) donepezil 2022-0 Yes 10 mg = 1 Mem oria 10 mg oral 2-21 tab, PO, l tablet 18:26: Daily, 0 [place] 00 Refill(s) NIFEdipine 2023-0 Yes 30 mg = 1 Me moria (Eqv-Procar 2-21 tab, PO, l afua XL) 30 18:26: Daily, 0 Her ivory mg oral 00 Refill(s) tablet, extended release Kerendia 10 0 Yes 10 mg = 1 M emoria mg oral 2-21 tab, PO, l tablet 18:26: Daily, 0 [place] 00 Refill(s) lovastatin 0 Yes 20 mg = 1 Me moria 20 mg oral 2-21 tab, PO, l tablet 18:26: Daily, 0 [place] 00 Refill(s) donepezil 0 Yes 10 mg = 1 Mem oria 10 mg oral 2-21 tab, PO, l tablet 18:26: Daily, 0 [place] 00 Refill(s) NIFEdipine 0 Yes 30 mg = 1 Me moria (Eqv-Procar 2-21 tab, PO, l afua XL) 30 18:26: Daily, 0 Her ivory mg oral 00 Refill(s) tablet, extended release Kerendia 10 Yes 10 mg = 1 M emoria mg oral 2-21 tab, PO, l tablet 18:26: Daily, 0 [place] 00 Refill(s) lovastatin 0 Yes 20 mg = 1 Me moria 20 mg oral 2-21 tab, PO, l tablet 18:26: Daily, 0 [place] 00 Refill(s) Coreg 25 mg 2022-0 Yes 25 mg = 1 M emoria oral tablet 2-21 tab, PO, l 18:25: BID, 0 [place] 00 Refill(s) Lexapro 20 2022-0 Yes 20 [...] tab, PO, l tablet 18:25: BID, 0 [place] 00 Refill(s) Coreg 25 mg 2023-0 Yes [...] tab, PO, l tablet 18:25: BID, 0 [place] 00 Refill(s) Coreg 25 mg 3-0 Yes [...] 2-21 tab, PO, l 18:25: BID, 0 [place] 00 Refill(s) Lexapro 20 2023-0 Yes 20 mg = 1 Me moria mg oral 2-21 tab, PO, l tablet 18:25: BID, 0 [place] 00 Refill(s) rOPINIRole 2023-0 Yes 4 mg = 1 Mem oria 4 mg oral 2-21 tab, PO, l tablet 18:25: BID, 0 [place] 00 Refill(s) Coreg 25 mg 2023-0 Yes 25 mg = 1 M emoria oral tablet 2-21 tab, PO, l 18:25: BID, 0 [place] 00 Refill(s) Lexapro 20 2023-0 Yes 20 mg = 1 Me moria mg oral 2-21 tab, PO, l tablet 18:25: BID, 0 [place] 00 Refill(s) rOPINIRole 2023-0 Yes 4 mg [...] tab, PO, l tablet 18:25: BID, 0 [place] 00 Refill(s) rOPINIRole 2023-0 Yes 4 mg [...] tab, PO, l tablet 18:25: BID, 0 [place] 00 Refill(s) rOPINIRole 2023-0 Yes 4 mg = 1 Mem oria 4 mg oral 2-21 tab, PO, l tablet 18:25: BID, 0 Raul 00 Refill(s) Coreg 25 mg 2023-0 Yes 25 mg = 1 M emoria oral tablet 2-21 tab, PO, l 18:25: BID, 0 [place] 00 Refill(s) Lexapro 20 2023-0 Yes 20 mg = 1 Me moria mg oral 2-21 tab, PO, l tablet 18:25: BID, 0 Raul 00 Refill(s) rOPINIRole 2023-0 Yes 4 mg = 1 Mem oria 4 mg oral 2-21 tab, PO, l tablet 18:25: BID, 0 [place] 00 Refill(s) Coreg 25 mg 2023-0 Yes 25 mg = 1 M emoria oral tablet 2-21 tab, PO, l 18:25: BID, 0 [place] 00 Refill(s) Lexapro 20 2023-0 Yes 20 mg = 1 Me moria mg oral 2-21 tab, PO, l tablet 18:25: BID, 0 Raul 00 Refill(s) rOPINIRole 2023-0 Yes 4 mg = 1 Mem oria 4 mg oral 2-21 tab, PO, l tablet 18:25: BID, 0 [place] 00 Refill(s) pantoprazol 2023-0 Yes 40 mg = 1 M emoria e 40 mg 2-21 tab, PO, l oral 18:24: BID, 0 Raul enteric 00 Refill(s) coated tablet pantoprazol 2023-0 Yes 40 mg = 1 M emoria e 40 mg 2-21 tab, PO, l oral 18:24: BID, 0 [place] enteric 00 Refill(s) coated tablet pantoprazol 2023-0 Yes 40 mg = 1 M emoria e 40 mg 2-21 tab, PO, l oral 18:24: BID, 0 Raul enteric 00 Refill(s) coated tablet pantoprazol 2023-0 Yes 40 mg = 1 M emoria e 40 mg 2-21 tab, PO, l oral 18:24: BID, 0 [place] enteric 00 Refill(s) coated tablet pantoprazol 2023-0 Yes 40 mg = 1 M emoria e 40 mg 2-21 tab, PO, l oral 18:24: BID, 0 [place] enteric 00 Refill(s) coated tablet pantoprazol 2023-0 [...] tab, PO, l oral 18:24: BID, 0 [place] enteric 00 Refill(s) coated tablet pantoprazol 2023-0 Yes 40 mg = 1 M emoria e 40 mg 2-21 tab, PO, l oral 18:24: BID, 0 [place] enteric 00 Refill(s) coated tablet Wellbutrin 2023-0 [...] am 2-21 Same as l 15:00: Keppra [place] 00 MEDICATION WASTE Product Size: 500 mg Product Wasted: ___ mg docusate No Notes: Memoria 2-21 (Same as: l 15:00: Colace) Raul 00 (Do Not Crush) senna No Notes: Memoria 2-21 (Same as: l 15:00: Senokot) Raul 00 lidocaine No Notes: Memori a topical 2-21 Patch is l 15:00: applied to [place] 00 intact skin to cover painful area [...] am 2-21 Same as l 15:00: Keppra [place] 00 MEDICATION WASTE Product Size: 500 mg Product Wasted: ___ mg docusate No Notes: Memoria 2-21 (Same as: l 15:00: Colace) [place] 00 (Do Not Crush) senna No Notes: Memoria 2-21 (Same as: l 15:00: Senokot) [place] 00 lidocaine No Notes: Memori a topical [...] 0.9% 2-21 (Same as: l 15:00: BD [place] 00 Posiflush) levETIRAcet No Notes: Jose Francisco [...] 0.9% 2-21 (Same as: l 15:00: BD [place] 00 Posiflush) levETIRAcet No Notes: Jose Francisco zhang am 2-21 Same as l 15:00: Keppra [place] MEDICATION WASTE Product Size: 500 mg Product Wasted: ___ mg docusate No Notes: Memoria 2-21 (Same as: l 15:00: Colace) Raul 00 (Do Not Crush) senna No Notes: Memoria 2-21 (Same as: l 15:00: Senokot) Raul 00 lidocaine No Notes: Memori a topical 2-21 Patch is l 15:00: applied to [place] 00 intact skin to cover painful area [...] am 2-21 Same as l 15:00: Keppra [place] 00 MEDICATION WASTE Product Size: 500 mg Product Wasted: ___ mg docusate No Notes: Memoria 2-21 (Same as: l 15:00: Colace) Raul 00 (Do Not Crush) senna No Notes: Memoria 2-21 (Same as: l 15:00: Senokot) [place] 00 lidocaine No Notes: Memori a topical 2-21 Patch is l 15:00: applied to [place] 00 intact skin to cover painful area for up to 12 hours in a 24-hour period (12 hours on and 12 hours off). Please indicate the location of applicatio n site. Site 1: Remove old patch before applicatio n of new patch. (Same as Aspercreme Lidocaine Patch) Saline No Notes: Memoria Flush 0.9% 2-21 (Same as: l 15:00: BD [place] 00 Posiflush) levETIRAcet No Notes: Jose Francisco zhang am 2-21 Same as l 15:00: Keppra [place] 00 MEDICATION WASTE Product Size: 500 mg Product Wasted: ___ mg docusate No Notes: Memoria 2-21 (Same as: l 15:00: Colace) [place] 00 (Do Not Crush) senna No Notes: [...] am 2-21 Same as l 15:00: Keppra [place] 00 MEDICATION WASTE Product Size: 500 mg [...] 0.9% 2-21 (Same as: l 15:00: BD [place] 00 Posiflush) levETIRAcet No Notes: Jose Francisco zhang am 2-21 Same as l 15:00: Keppra [place] 00 MEDICATION WASTE Product Size: 500 mg Product Wasted: ___ mg docusate No Notes: Memoria 2-21 (Same as: l 15:00: Colace) [place] 00 (Do Not Crush) senna No Notes: Memoria 2-21 (Same as: l 15:00: Senokot) [place] 00 lidocaine No Notes: Memori a topical [...] 0.9% 2-21 (Same as: l 15:00: BD [place] 00 Posiflush) Sodium No 1,000 mL, Memori a Chloride 2-21 Rate: 50 l 0.9% IV 14:47: ml/hr, [place] 1,000 mL 00 Infuse over: 20 hr, Route: IV, Dosing Weight 86.364 kg, Total Volume: 1,000, 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/22 8:47:00 PSYCHIATRIC ARNP, Duration: 30 day, Stop date: 12/21/22 8:46:00 CDT, BSA: 1.93 m2, 0 acetaminoph No Notes: Do M emoria en 2-21 not exceed l 14:47: 4 gm/day. [place] 00 (Same as: Tylenol) bisacodyl No Notes: [...] Weight 86.364, kg, 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/22 8:47:00 PSYCHIATRIC ARNP, Duration: 3 doses or times, Stop date: 11/21/22 9:17:00 PSYCHIATRIC ARNP, 0 Saline No Notes: Mem[facility] Flush 0.9% 2-21 (Same as: l 14:47: BD [place] 00 Posiflush) Sodium No 1,000 mL, Memori a Chloride 2-21 Rate: 50 l 0.9% IV 14:47: ml/hr, [place] 1,000 mL 00 Infuse over: 20 hr, Route: IV, Dosing Weight 86.364 kg, Total Volume: 1,000, 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/22 8:47:00 PSYCHIATRIC ARNP, Duration: 30 day, Stop date: 12/21/22 8:46:00 [...] Weight 86.364, kg, 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/22 8:47:00 PSYCHIATRIC ARNP, Duration: 3 doses or times, Stop date: 11/21/22 9:17:00 PSYCHIATRIC ARNP, 0 Saline No Notes: Mem[facility] Flush 0.9% 2-21 (Same as: l 14:47: BD Posiflush) Sodium No 1,000 mL, Memori a Chloride 2-21 Rate: 50 l 0.9% IV 14:47: ml/hr, [place] 1,000 mL 00 Infuse over: 20 hr, Route: IV, Dosing Weight 86.364 kg, Total Volume: 1,000, 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/22 8:47:00 PSYCHIATRIC ARNP, Duration: 30 day, Stop date: 12/21/22 8:46:00 CDT, BSA: 1.93 m2, 0 acetaminoph No Notes: Do M emoria en 2-21 not exceed l 14:47: 4 gm/day. [place] 00 (Same as: Tylenol) bisacodyl No Notes: [...] Weight 86.364, kg, 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/22 8:47:00 PSYCHIATRIC ARNP, Duration: 3 doses or times, Stop date: 11/21/22 9:17:00 PSYCHIATRIC ARNP, 0 Saline No Notes: [facility] Flush 0.9% 2-21 (Same as: l 14:47: BD Posiflush) Sodium No 1,000 mL, Memori a Chloride 2-21 Rate: 50 l 0.9% IV 14:47: ml/hr, Raul 1,000 mL 00 Infuse over: 20 hr, Route: IV, Dosing Weight 86.364 kg, Total Volume: 1,000, 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/22 8:47:00 PSYCHIATRIC ARNP, Duration: 30 day, Stop date: 12/21/22 8:46:00 CDT, BSA: 1.93 m2, 0 acetaminoph No Notes: Do M emoria en 2-21 not exceed l 14:47: 4 gm/day. (Same as: Tylenol) bisacodyl No Notes: Memori a 2-21 (Same As: l 14:47: Dulcolax, [place] 00 Bisco-Lax) ondansetron No Notes: Jose Francisco zhang 2-21 (Same as: l 14:47: Zofran) MEDICATION WASTE Product Size: 4 mg Product Wasted: ___ mg hydrALAZINE No Notes: Jose Francisco zhagn 2-21 (Same as: l 14:47: Apresoline ) Push over 5 minutes labetalol No 10 mg, 2 Jose Francisco zhang 2-21 mL, Route: l 14:47: IVP, Drug form: INJ, Q15Min, Dosing Weight 86.364, kg, 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/22 8:47:00 PSYCHIATRIC ARNP, Duration: 3 doses or times, Stop date: 11/21/22 9:17:00 PSYCHIATRIC ARNP, 0 Saline No Notes: Memoria Flush 0.9% 2-21 (Same as: l 14:47: BD Posiflush) Sodium No 1,000 mL, Memori a Chloride 2-21 Rate: 50 l 0.9% IV 14:47: ml/hr, Raul 1,000 mL 00 Infuse over: 20 hr, Route: IV, Dosing Weight 86.364 kg, Total Volume: 1,000, 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/22 8:47:00 PSYCHIATRIC ARNP, Duration: 30 day, Stop date: 12/21/22 8:46:00 [...] Weight 86.364, kg, 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/22 8:47:00 PSYCHIATRIC ARNP, Duration: 3 doses or times, Stop date: 11/21/22 9:17:00 PSYCHIATRIC ARNP, 0 Saline No Notes: Memoria Flush 0.9% 2-21 (Same as: l 14:47: BD Posiflush) Sodium No 1,000 mL, Memori a Chloride 2-21 Rate: 50 l 0.9% IV 14:47: ml/hr, Raul 1,000 mL 00 Infuse over: 20 hr, Route: IV, Dosing Weight 86.364 kg, Total Volume: 1,000, 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/22 8:47:00 PSYCHIATRIC ARNP, Duration: 30 day, Stop date: 12/21/22 8:46:00 [...] Weight 86.364, kg, 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/22 8:47:00 PSYCHIATRIC ARNP, Duration: 3 doses or times, Stop date: 11/21/22 9:17:00 PSYCHIATRIC ARNP, 0 Saline No Notes: Memoria Flush 0.9% 2-21 (Same as: l 14:47: BD [place] 00 Posiflush) Sodium No 1,000 mL, Memori a Chloride 2-21 Rate: 50 l 0.9% IV 14:47: ml/hr, Raul 1,000 mL 00 Infuse over: 20 hr, Route: IV, Dosing Weight 86.364 kg, Total Volume: 1,000, 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/22 8:47:00 PSYCHIATRIC ARNP, Duration: 30 day, Stop date: 12/21/22 8:46:00 CDT, BSA: 1.93 m2, 0 acetaminoph No Notes: Do M emoria en - not exceed l 14:47: 4 gm/day. [place] 00 (Same as: Tylenol) bisacodyl No Notes: [...] Weight 86.364, kg, 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/22 8:47:00 PSYCHIATRIC ARNP, Duration: 3 doses or times, Stop date: 11/21/22 9:17:00 PSYCHIATRIC ARNP, 0 Saline No Notes: Memoria Flush 0.9% 2-21 (Same as: l 14:47: BD Posiflush) Sodium No 1,000 mL, Memori a Chloride 2-21 Rate: 50 l 0.9% IV 14:47: ml/hr, Raul 1,000 mL 00 Infuse over: 20 hr, Route: IV, Dosing Weight 86.364 kg, Total Volume: 1,000, 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/22 8:47:00 PSYCHIATRIC ARNP, Duration: 30 day, Stop date: 12/21/22 8:46:00 CDT, BSA: 1.93 m2, 0 acetaminoph 0 No Notes: Do M emoria en 2-21 [...] Apresoline ) Push over 5 minutes labetalol 2022-0 No 10 mg, 2 Jose Francisco zhang 2-21 mL, Route: l 14:47: IVP, Drug form: INJ, Q15Min, Dosing Weight 86.364, kg, 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/22 8:47:00 PSYCHIATRIC ARNP, Duration: 3 doses or times, Stop date: 11/21/22 9:17:00 PSYCHIATRIC ARNP, 0 Saline 2022-0 No Notes: Memoria Flush 0.9% 11-21 (Same as: l 14:47: BD Posiflush) Tylenol 2022-0 No 1,000 mg, Memor ia 11-21 Route: PO, l 14:03: ONCE, Dosing Weight 86.364, kg, 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/22 8:03:00 PSYCHIATRIC ARNP, Stop date: 11/21/22 8:03:00 PSYCHIATRIC ARNP Tylenol 2022-0 No 1,000 mg, Memor ia 11-21 Route: PO, l 14:03: ONCE, Dosing Weight 86.364, kg, 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/22 8:03:00 PSYCHIATRIC ARNP, Stop date: 11/21/22 8:03:00 PSYCHIATRIC ARNP Tylenol 3-0 No 1,000 mg, Memor ia 11-21 Route: PO, l 14:03: ONCE, Dosing Weight 86.364, kg, 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/22 8:03:00 PSYCHIATRIC ARNP, Stop date: 11/21/22 8:03:00 PSYCHIATRIC ARNP Tylenol 3-0 No 1,000 mg, Memor ia 2-21 Route: PO, l 14:03: ONCE, Dosing Weight 86.364, kg, 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/22 8:03:00 PSYCHIATRIC ARNP, Stop date: 11/21/22 8:03:00 PSYCHIATRIC ARNP Tylenol 2023-0 No 1,000 mg, Memor ia 2-21 Route: PO, l 14:03: ONCE, Dosing Weight 86.364, kg, 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/22 8:03:00 PSYCHIATRIC ARNP, Stop date: 11/21/22 8:03:00 PSYCHIATRIC ARNP Tylenol 2023-0 No 1,000 mg, Memor ia 2-21 Route: PO, l 14:03: ONCE, Dosing Weight 86.364, kg, 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/22 8:03:00 PSYCHIATRIC ARNP, Stop date: 11/21/22 8:03:00 PSYCHIATRIC ARNP Tylenol 2023-0 No 1,000 mg, Memor ia 2-21 Route: PO, l 14:03: ONCE, Dosing Weight 86.364, kg, 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/22 8:03:00 PSYCHIATRIC ARNP, Stop date: 11/21/22 8:03:00 PSYCHIATRIC ARNP Tylenol 2023-0 No 1,000 mg, Memor ia 2-21 Route: PO, l 14:03: ONCE, Dosing Weight 86.364, kg, 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/22 8:03:00 PSYCHIATRIC ARNP, Stop date: 11/21/22 8:03:00 PSYCHIATRIC ARNP Saline No Notes: Memoria Flush 0.9% 2-21 (Same as: l 12:05: BD Raul 00 Posiflush) Saline No Notes: Memoria Flush 0.9% 2-21 (Same as: l 12:05: BD [place] 00 Posiflush) Saline No Notes: Memoria Flush 0.9% 2-21 (Same as: l 12:05: BD [place] 00 Posiflush) Saline No Notes: Memoria Flush 0.9% 2-21 (Same as: l 12:05: BD Raul 00 Posiflush) Saline No Notes: Memoria Flush 0.9% 2-21 (Same as: l 12:05: BD [place] 00 Posiflush) Saline No Notes: Memoria Flush 0.9% 2-21 (Same as: l 12:05: BD [place] 00 Posiflush) Saline No Notes: Memoria Flush 0.9% 2-21 (Same as: l 12:05: BD [place] 00 Posiflush) Saline No Notes: Memoria Flush 0.9% 2-21 (Same as: l 12:05: BD [place] Posiflush) albuterol 2021-10 5mg 5 mg, Univer s [...] nn 00 90 tab, 2 Refill(s), Pharmacy: [facility] #[id number], 149.86, cm, 11/02/21 14:32:00 PSYCHIATRIC ARNP, Height, 90.455, kg, 11/02/21 14:32:00 PSYCHIATRIC ARNP, Weight primidone Yes 50 mg = 1 Mem oria 50 mg oral 2-02 tab, PO, l tablet 20:46: Bedtime, # Jessie nn 00 90 tab, 2 Refill(s), Pharmacy: [facility] #[id number], 149.86, cm, 11/02/21 14:32:00 PSYCHIATRIC ARNP, Height, 90.455, kg, 11/02/21 14:32:00 PSYCHIATRIC ARNP, Weight primidone 0 Yes 50 mg = 1 Mem oria 50 mg oral 2-02 tab, PO, l tablet 20:46: Bedtime, # Jessie nn 00 90 tab, 2 Refill(s), Pharmacy: [facility] #[id number], 149.86, cm, 11/02/21 14:32:00 PSYCHIATRIC ARNP, Height, 90.455, kg, 11/02/21 14:32:00 PSYCHIATRIC ARNP, Weight primidone 2022-0 Yes 50 mg = 1 Mem oria 50 mg oral 2-02 tab, PO, l tablet 20:46: Bedtime, # Jessie nn 00 90 tab, 2 Refill(s), Pharmacy: [facility] #[id number], 149.86, cm, 11/02/21 14:32:00 PSYCHIATRIC ARNP, Height, 90.455, kg, 11/02/21 14:32:00 PSYCHIATRIC ARNP, Weight primidone 2022-0 Yes 50 mg = 1 Mem oria 50 mg oral 2-02 tab, PO, l tablet 20:46: Bedtime, # Jessie nn 00 90 tab, 2 Refill(s), Pharmacy: [facility] #[id number], 149.86, cm, 11/02/21 14:32:00 PSYCHIATRIC ARNP, Height, 90.455, kg, 11/02/21 14:32:00 PSYCHIATRIC ARNP, Weight primidone 2022-0 Yes 50 mg = 1 Mem oria 50 mg oral 2-02 tab, PO, l tablet 20:46: Bedtime, # Jessie nn 00 90 tab, 2 Refill(s), Pharmacy: [facility] #[id number], 149.86, cm, 11/02/21 14:32:00 PSYCHIATRIC ARNP, Height, 90.455, kg, 11/02/21 14:32:00 PSYCHIATRIC ARNP, Weight primidone 2022-0 Yes 50 mg = 1 Mem oria 50 mg oral 2-02 tab, PO, l tablet 20:46: Bedtime, # Jessie nn 00 90 tab, 2 Refill(s), Pharmacy: [facility] #[id number], 149.86, cm, 11/02/21 14:32:00 PSYCHIATRIC ARNP, Height, 90.455, kg, 11/02/21 14:32:00 PSYCHIATRIC ARNP, Weight primidone 2022-0 Yes 50 mg = 1 Mem oria 50 mg oral 2-02 tab, PO, l tablet 20:46: Bedtime, # Jessie nn 00 90 tab, 2 Refill(s), Pharmacy: [facility] #[id number], 149.86, cm, 11/02/21 14:32:00 PSYCHIATRIC ARNP, Height, 90.455, kg, 11/02/21 14:32:00 PSYCHIATRIC ARNP, Weight primidone 2022-0 Yes 50 mg = 1 Mem oria 50 mg oral 2-02 tab, PO, l tablet 20:46: Bedtime, # Jessie nn 00 90 tab, 2 Refill(s), Pharmacy: [facility] #[id number], 149.86, cm, 11/02/21 14:32:00 PSYCHIATRIC ARNP, Height, 90.455, kg, 11/02/21 14:32:00 PSYCHIATRIC ARNP, Weight primidone 2022-0 Yes 50 mg = 1 Mem oria 50 mg oral 2-02 tab, PO, l tablet 20:46: Bedtime, # Jessie nn 00 90 tab, 2 Refill(s), Pharmacy: [facility] #[id number], 149.86, cm, 11/02/21 14:32:00 PSYCHIATRIC ARNP, Height, 90.455, kg, 11/02/21 14:32:00 PSYCHIATRIC ARNP, Weight primidone 2022-0 Yes 50 mg = 1 Mem oria 50 mg oral 2-02 tab, PO, l tablet 20:46: Bedtime, # Jessie nn 00 90 tab, 2 Refill(s), Pharmacy: [facility] #[id number], 149.86, cm, 11/02/21 14:32:00 PSYCHIATRIC ARNP, Height, 90.455, kg, 11/02/21 14:32:00 PSYCHIATRIC ARNP, Weight primidone 2022-0 Yes 50 mg = 1 Mem oria 50 mg oral 2-02 tab, PO, l tablet 20:46: Bedtime, # Jessie nn 00 90 tab, 2 Refill(s), Pharmacy: [facility] #[id number], 149.86, cm, 11/02/21 14:32:00 PSYCHIATRIC ARNP, Height, 90.455, kg, 11/02/21 14:32:00 PSYCHIATRIC ARNP, Weight primidone 2022-0 Yes 50 mg = 1 Mem oria 50 mg oral 2-02 tab, PO, l tablet 20:46: Bedtime, # Jessie nn 00 90 tab, 2 Refill(s), Pharmacy: [facility] #[id number], 149.86, cm, 11/02/21 14:32:00 PSYCHIATRIC ARNP, Height, 90.455, kg, 11/02/21 14:32:00 PSYCHIATRIC ARNP, Weight primidone 2022-0 Yes 50 mg = 1 Mem oria 50 mg oral 2-02 tab, PO, l tablet 20:46: Bedtime, # Jessie nn 00 90 tab, 2 Refill(s), [id number], 149.86, cm, 11/02/21 14:32:00 PSYCHIATRIC ARNP, Height, 90.455, kg, 11/02/21 14:32:00 PSYCHIATRIC ARNP, Weight primidone Yes 50 mg = 1 Mem oria 50 mg oral 2-02 tab, PO, l tablet 20:46: Bedtime, # Jessie nn 00 90 tab, 2 Refill(s), Pharmacy: [facility] #[id number], 149.86, cm, 11/02/21 14:32:00 PSYCHIATRIC ARNP, Height, 90.455, kg, 11/02/21 14:32:00 PSYCHIATRIC ARNP, Weight NIFEdipine Yes TAKE 1 Memor ia (Eqv-Adalat 2-02 TABLET BY l CC) 30 mg 20:38: MOUTH [place] oral 00 EVERY DAY tablet, ON EMPTY extended STOMACH release FOR 30 DAYS Furosemide Yes TAKE 1 Memor ia 40 MG Oral 2-02 TABLET BY l Tablet 20:38: MOUTH [place] 00 EVERY DAY NEEDED FOR SWELLING tramadol [...] BY l de 50 MG 20:38: MOUTH [place] Oral Tablet 00 EVERY 6 TO 8 HOURS NEEDED predniSONE Yes TAKE 1 Memor ia 10 mg oral 2-02 TABLET BY l tablet 20:38: MOUTH [place] 00 EVERY DAY FOR 90 DAYS doxycycline [...] TABLET BY l oral 20:38: MOUTH 2 [place] enteric 00 TIMES coated DAILY HALF tablet HOUR BEFORE BREAKFAST OR FIRST MEAL oxybutynin Yes TAKE 1 Mem[facility] ia 5 mg oral 2-02 TABLET BY l tablet 20:38: MOUTH [place] 00 THREE TIMES A DAY NIFEdipine Yes TAKE 1 Mem[facility] ia (Eqv-Adalat 2-02 TABLET BY l CC) 30 mg 20:38: MOUTH [place] oral 00 EVERY DAY tablet, ON EMPTY [...] 2-02 TABLET BY l tablet 20:38: MOUTH [place] 00 EVERY DAY FOR 90 DAYS doxycycline [...] TABLET BY l oral 20:38: MOUTH 2 [place] enteric 00 TIMES coated DAILY HALF tablet HOUR BEFORE BREAKFAST OR FIRST MEAL oxybutynin Yes TAKE 1 Memor ia 5 mg oral 2-02 TABLET BY l tablet 20:38: MOUTH Raul 00 THREE TIMES A DAY NIFEdipine Yes TAKE 1 Memor ia (Eqv-Adalat 2-02 TABLET BY l CC) 30 mg 20:38: MOUTH [place] oral 00 EVERY DAY tablet, ON EMPTY extended STOMACH release FOR 30 DAYS Furosemide Yes TAKE 1 Memor ia 40 MG Oral 2-02 TABLET BY l Tablet 20:38: MOUTH [place] 00 EVERY DAY NEEDED FOR SWELLING tramadol Yes TAKE 1 Memoria hydrochlori 2-02 TABLET BY l de 50 MG 20:38: MOUTH [place] Oral Tablet 00 EVERY 6 TO 8 HOURS NEEDED predniSONE Yes TAKE 1 Mem[facility] ia 10 mg oral 2-02 TABLET BY l tablet 20:38: MOUTH [place] 00 EVERY DAY FOR 90 DAYS doxycycline Yes TAKE 1 [place] Francisco zhang hyclate 100 2-02 CAPSULE BY l MG Oral 20:38: MOUTH [place] Capsule 00 TWICE A DAY Colestipol Yes TAKE 1 Mem[facility] ia Hydrochlori 2-02 TABLET BY l de 1000 MG 20:38: MOUTH Ajay n Oral Tablet 00 TWICE A DAY pantoprazol Yes TAKE 1 Jose Francisco zhang e 40 mg 2-02 TABLET BY l oral 20:38: MOUTH 2 [place] enteric 00 TIMES coated DAILY HALF tablet HOUR BEFORE BREAKFAST OR FIRST MEAL oxybutynin Yes TAKE 1 Mem[facility] ia 5 mg oral 2-02 TABLET BY l tablet 20:38: MOUTH Raul 00 THREE TIMES A DAY NIFEdipine Yes TAKE 1 Mem[facility] ia (Eqv-Adalat 2-02 TABLET BY l CC) 30 mg 20:38: MOUTH [place] oral 00 EVERY DAY tablet, ON EMPTY extended STOMACH release FOR 30 DAYS Furosemide Yes TAKE 1 Mem[facility] ia 40 MG Oral 2-02 TABLET BY l Tablet 20:38: MOUTH Raul 00 EVERY DAY NEEDED FOR SWELLING tramadol Yes TAKE 1 Mem[facility] hydrochlori 2-02 TABLET BY l de 50 MG 20:38: MOUTH [place] Oral Tablet 00 EVERY 6 TO 8 HOURS NEEDED predniSONE Yes TAKE 1 Memor ia 10 mg oral 2-02 TABLET BY l tablet 20:38: MOUTH [place] 00 EVERY DAY FOR 90 DAYS doxycycline Yes TAKE 1 Jose Francisco zhang hyclate 100 2-02 CAPSULE BY l MG Oral 20:38: MOUTH [place] Capsule 00 TWICE A DAY Colestipol Yes TAKE 1 [facility] ia Hydrochlori 2-02 TABLET BY l de 1000 MG 20:38: MOUTH Ajay n Oral Tablet 00 TWICE A DAY pantoprazol Yes TAKE 1 Jose Francisco zhang e 40 mg 2-02 TABLET BY l oral 20:38: MOUTH 2 [place] enteric 00 TIMES coated DAILY HALF tablet HOUR BEFORE BREAKFAST OR FIRST MEAL oxybutynin Yes TAKE 1 Mem[facility] ia 5 mg oral 2-02 TABLET BY l tablet 20:38: MOUTH [place] 00 THREE TIMES A DAY NIFEdipine Yes TAKE 1 Mem[facility] ia (Eqv-Adalat 2-02 TABLET BY l CC) 30 mg 20:38: MOUTH [place] oral 00 EVERY DAY tablet, ON EMPTY [...] 2-02 TABLET BY l tablet 20:38: MOUTH [place] 00 EVERY DAY FOR 90 DAYS doxycycline Yes TAKE 1 Jose Francisco zhang hyclate 100 2-02 CAPSULE BY l MG Oral 20:38: MOUTH [place] Capsule 00 TWICE A DAY Colestipol Yes [...] 2-02 TABLET BY l Tablet 20:38: MOUTH [place] 00 EVERY DAY NEEDED FOR SWELLING tramadol Yes TAKE 1 Mem[facility] hydrochlori 2-02 TABLET BY l de 50 MG 20:38: MOUTH [place] Oral Tablet 00 EVERY 6 TO 8 HOURS NEEDED predniSONE Yes TAKE 1 Mem[facility] 10 mg oral 2-02 TABLET BY l tablet 20:38: MOUTH [place] 00 EVERY DAY FOR 90 DAYS doxycycline [...] BY l CC) 30 mg 20:38: MOUTH [place] oral 00 EVERY DAY tablet, ON EMPTY [...] CAPSULE BY l MG Oral 20:38: MOUTH [place] Capsule 00 TWICE A DAY NIFEdipine Yes TAKE 1 Mem[facility] (Eqv-Adalat 2-02 TABLET BY l CC) 30 mg 20:38: MOUTH [place]ul oral 00 EVERY DAY tablet, ON EMPTY extended STOMACH release FOR 30 DAYS Furosemide Yes TAKE 1 [facility] 40 MG Oral 2-02 TABLET BY l Tablet 20:38: MOUTH [place] 00 EVERY DAY NEEDED FOR SWELLING tramadol Yes TAKE 1 [facility] hydrochlori 2-02 TABLET BY l de 50 MG 20:38: MOUTH [place] Oral Tablet 00 EVERY 6 TO 8 [...] TABLET BY l oral 20:38: MOUTH 2 [place] enteric 00 TIMES coated DAILY HALF tablet [...] BY l de 50 MG 20:38: MOUTH [place] Oral Tablet 00 EVERY 6 TO 8 HOURS NEEDED predniSONE Yes TAKE 1 [facility] 10 mg oral 2-02 TABLET BY l tablet 20:38: MOUTH [place] 00 EVERY DAY FOR 90 DAYS doxycycline Yes TAKE 1 Jose Francisco zhang hyclate 100 2-02 CAPSULE BY l MG Oral 20:38: MOUTH [place] Capsule 00 TWICE A DAY Colestipol Yes TAKE 1 [facility] Hydrochlori 2-02 TABLET BY l de 1000 MG 20:38: MOUTH Ajay n Oral Tablet 00 TWICE A DAY pantoprazol Yes TAKE 1 Jose Francisco zhang e 40 mg 2-02 TABLET BY l oral 20:38: MOUTH 2 [place] enteric 00 TIMES coated DAILY HALF tablet [...] 2-02 TABLET BY l Tablet 20:38: MOUTH [place] 00 EVERY DAY NEEDED FOR SWELLING tramadol Yes TAKE 1 [facility] hydrochlori 2-02 TABLET BY l de 50 MG 20:38: MOUTH [place] Oral Tablet 00 EVERY 6 TO 8 HOURS NEEDED predniSONE Yes TAKE 1 [facility] 10 mg oral 2-02 TABLET BY l tablet 20:38: MOUTH [place] 00 EVERY DAY FOR 90 DAYS doxycycline Yes TAKE 1 Jose Francisco zhang hyclate 100 2-02 CAPSULE BY l MG Oral 20:38: MOUTH [place] Capsule 00 TWICE A DAY Colestipol Yes TAKE 1 [facility] Hydrochlori 2-02 TABLET BY l de 1000 MG 20:38: MOUTH Ajay n Oral Tablet 00 TWICE A DAY pantoprazol Yes TAKE 1 Jose [place] zhang e 40 mg 2-02 TABLET BY l oral 20:38: MOUTH 2 [place] enteric 00 TIMES coated DAILY HALF tablet HOUR BEFORE BREAKFAST OR FIRST MEAL oxybutynin Yes TAKE 1 [facility] 5 mg oral 2-02 TABLET BY l tablet 20:38: MOUTH [place] 00 THREE TIMES A DAY NIFEdipine Yes TAKE 1 [facility] (Eqv-Adalat 2-02 TABLET BY l CC) 30 mg 20:38: MOUTH [place] oral 00 EVERY DAY tablet, ON EMPTY [...] DAY pantoprazol Yes TAKE 1 Jose Francisco hzang e 40 mg 2-02 TABLET BY l oral 20:38: MOUTH 2 [place] enteric 00 TIMES coated DAILY HALF tablet [...] 2-02 TABLET BY l tablet 20:38: MOUTH [place] 00 EVERY DAY FOR 90 DAYS doxycycline [...] TABLET BY l oral 20:38: MOUTH 2 [place] enteric 00 TIMES coated DAILY HALF tablet [...] 2-02 TABLET BY l Tablet 20:38: MOUTH [place] 00 EVERY DAY NEEDED FOR SWELLING tramadol Yes TAKE 1 [facility] hydrochlori 2-02 TABLET BY l de 50 MG 20:38: MOUTH [place] Oral Tablet 00 EVERY 6 TO 8 HOURS NEEDED predniSONE Yes TAKE 1 [facility] 10 mg oral 2-02 TABLET BY l tablet 20:38: MOUTH [place] 00 EVERY DAY FOR 90 DAYS doxycycline Yes TAKE 1 Jose Francisco zhang hyclate 100 2-02 CAPSULE BY l MG Oral 20:38: MOUTH [place] Capsule 00 TWICE A DAY Colestipol Yes TAKE 1 [facility] Hydrochlori 2-02 TABLET BY l de 1000 MG 20:38: MOUTH Ajay n Oral Tablet 00 TWICE A DAY pantoprazol Yes TAKE 1 Jose Francisco zhang e 40 mg 2-02 TABLET BY l oral 20:38: MOUTH 2 [place] enteric 00 TIMES coated DAILY HALF tablet HOUR BEFORE BREAKFAST OR FIRST MEAL oxybutynin Yes TAKE 1 [facility] 5 mg oral 2-02 TABLET BY l tablet 20:38: MOUTH [place] 00 THREE TIMES A DAY NIFEdipine Yes TAKE 1 [facility] (Eqv-Adalat 2-02 TABLET BY l CC) 30 mg 20:38: MOUTH [place] oral 00 EVERY DAY tablet, ON EMPTY extended STOMACH release FOR 30 DAYS Furosemide Yes TAKE 1 [facility] 40 MG Oral 2-02 TABLET BY l Tablet 20:38: MOUTH [place] 00 EVERY DAY NEEDED FOR SWELLING tramadol Yes TAKE 1 [facility] hydrochlori 2-02 TABLET BY l de 50 MG 20:38: MOUTH [place] Oral Tablet 00 EVERY 6 TO 8 HOURS NEEDED predniSONE Yes TAKE 1 [facility] 10 mg oral 2-02 TABLET BY l tablet 20:38: MOUTH [place] 00 EVERY DAY FOR 90 DAYS doxycycline Yes TAKE 1 [place] zhang hyclate 100 2-02 CAPSULE BY l MG Oral 20:38: MOUTH [place] Capsule 00 TWICE A DAY Colestipol Yes [...] 2-02 TABLET BY l tablet 20:38: MOUTH [place] 00 THREE TIMES A DAY donepezil Yes = 1 tab, Jose Francisco zhang 10 mg oral 3-26 PO, Daily, l tablet 19:08: # 90 tab, Ajay n 00 1 Refill(s), Pharmacy: [facility] #[id number], 149.86, cm, 12/24/20 13:59:00 CDT, Height, 93.182, kg, 12/24/20 13:59:00 CDT, Weight primidone Yes 50 mg = 1 Mem oria 50 mg oral 3-26 tab, PO, l tablet 19:08: Bedtime, # Jessie nn 00 90 tab, 2 Refill(s), Pharmacy: [facility] #[id number], 149.86, cm, 12/24/20 13:59:00 CDT, Height, 93.182, kg, 12/24/20 13:59:00 CDT, Weight donepezil 202-0 Yes = 1 tab, Jose Francisco zhang 10 mg oral 3-26 PO, Daily, l tablet 19:08: # 90 tab, Ajay n 00 1 Refill(s), Pharmacy: [facility] #[id number], 149.86, cm, 12/24/20 13:59:00 CDT, Height, 93.182, kg, 12/24/20 13:59:00 CDT, Weight primidone 2021-0 Yes 50 mg = 1 Mem oria 50 mg oral 3-26 tab, PO, l tablet 19:08: Bedtime, # Jessie nn 00 90 tab, 2 Refill(s), Pharmacy: [facility] #[id number], 149.86, cm, 12/24/20 13:59:00 CDT, Height, 93.182, kg, 12/24/20 13:59:00 CDT, Weight donepezil 2020-0 Yes = 1 tab, Jose Francisco zhang 10 mg oral 3-26 PO, Daily, l tablet 19:08: # 90 tab, Ajay n 00 1 Refill(s), Pharmacy: [facility] #[id number], 149.86, cm, 12/24/20 13:59:00 CDT, Height, 93.182, kg, 12/24/20 13:59:00 CDT, Weight primidone 1-0 Yes 50 mg = 1 Mem oria 50 mg oral 3-26 tab, PO, l tablet 19:08: Bedtime, # Jessie nn 00 90 tab, 2 Refill(s), Pharmacy: [facility] #[id number], 149.86, cm, 12/24/20 13:59:00 CDT, Height, 93.182, kg, 12/24/20 13:59:00 CDT, Weight donepezil 2021-0 Yes = 1 tab, Jose Francisco zhang 10 mg oral 3-26 PO, Daily, l tablet 19:08: # 90 tab, Ajay n 00 1 Refill(s), Pharmacy: [facility] #[id number], 149.86, cm, 12/24/20 13:59:00 CDT, Height, 93.182, kg, 12/24/20 13:59:00 CDT, Weight primidone 2021-0 Yes 50 mg = 1 Mem oria 50 mg oral 3-26 tab, PO, l tablet 19:08: Bedtime, # Jessie nn 00 90 tab, 2 Refill(s), Pharmacy: [facility] #[id number], 149.86, cm, 12/24/20 13:59:00 CDT, Height, 93.182, kg, 12/24/20 13:59:00 CDT, Weight donepezil 2020-0 Yes = 1 tab, Jose Francisco zhang 10 mg oral 3-26 PO, Daily, l tablet 19:08: # 90 tab, Ajay n 00 1 Refill(s), Pharmacy: [facility] #[id number], 149.86, cm, 12/24/20 13:59:00 CDT, Height, 93.182, kg, 12/24/20 13:59:00 CDT, Weight primidone 2020-0 Yes 50 mg = 1 Mem oria 50 mg oral 3-26 tab, PO, l tablet 19:08: Bedtime, # Jessie nn 00 90 tab, 2 Refill(s), Pharmacy: [facility] #[id number], 149.86, cm, 12/24/20 13:59:00 CDT, Height, 93.182, kg, 12/24/20 13:59:00 CDT, Weight donepezil 2020-0 Yes = 1 tab, Jose Francisco zhang 10 mg oral 3-26 PO, Daily, l tablet 19:08: # 90 tab, Ajay n 00 1 Refill(s), Pharmacy: [facility] #[id number], 149.86, cm, 12/24/20 13:59:00 CDT, Height, 93.182, kg, 12/24/20 13:59:00 CDT, Weight primidone 2020-0 Yes 50 mg = 1 Mem oria 50 mg oral 3-26 tab, PO, l tablet 19:08: Bedtime, # Jessie nn 00 90 tab, 2 Refill(s), Pharmacy: [facility] #[id number], 149.86, cm, 12/24/20 13:59:00 CDT, Height, 93.182, kg, 12/24/20 13:59:00 CDT, Weight donepezil 2020-0 Yes = 1 tab, Jose Francisco zhang 10 mg oral 3-26 PO, Daily, l tablet 19:08: # 90 tab, Ajay n 00 1 Refill(s), Pharmacy: [facility] #[id number], 149.86, cm, 12/24/20 13:59:00 CDT, Height, 93.182, kg, 12/24/20 13:59:00 CDT, Weight primidone 1-0 Yes 50 mg = 1 Mem oria 50 mg oral 3-26 tab, PO, l tablet 19:08: Bedtime, # Jessie nn 00 90 tab, 2 Refill(s), Pharmacy: [facility] #[id number], 149.86, cm, 12/24/20 13:59:00 CDT, Height, 93.182, kg, 12/24/20 13:59:00 CDT, Weight donepezil 2020-0 Yes = 1 tab, Jose Francisco zhang 10 mg oral 3-26 PO, Daily, l tablet 19:08: # 90 tab, Ajay n 00 1 Refill(s), Pharmacy: [facility] #[id number], 149.86, cm, 12/24/20 13:59:00 CDT, Height, 93.182, kg, 12/24/20 13:59:00 CDT, Weight primidone 2020-0 Yes 50 mg = 1 Mem o[facility] 50 mg oral 3-26 tab, PO, l tablet 19:08: Bedtime, # Jsesie nn 00 90 tab, 2 Refill(s), Pharmacy: [facility] #[id number], 149.86, cm, 12/24/20 13:59:00 CDT, Height, 93.182, kg, 12/24/20 13:59:00 CDT, Weight donepezil 2020-0 Yes = 1 tab, Jose Francisco zhang 10 mg oral 3-26 PO, Daily, l tablet 19:08: # 90 tab, Ajay n 00 1 Refill(s), Pharmacy: [facility] #[id number], 149.86, cm, 12/24/20 13:59:00 CDT, Height, 93.182, kg, 12/24/20 13:59:00 CDT, Weight primidone 2021-0 Yes 50 mg = 1 Mem [facility] 50 mg oral 3-26 tab, PO, l tablet 19:08: Bedtime, # Jessie nn 00 90 tab, 2 Refill(s), Pharmacy: [facility] #[id number], 149.86, cm, 12/24/20 13:59:00 CDT, Height, 93.182, kg, 12/24/20 13:59:00 CDT, Weight donepezil 2020-0 Yes = 1 tab, Jose Francisco zhang 10 mg oral 3-26 PO, Daily, l tablet 19:08: # 90 tab, Ajay n 00 1 Refill(s), Pharmacy: [facility] #[id number], 149.86, cm, 12/24/20 13:59:00 CDT, Height, 93.182, kg, 12/24/20 13:59:00 CDT, Weight primidone 2020-0 Yes 50 mg = 1 Mem oria 50 mg oral 3-26 tab, PO, l tablet 19:08: Bedtime, # Jessie nn 00 90 tab, 2 Refill(s), Pharmacy: [facility] #[id number], 149.86, cm, 12/24/20 13:59:00 CDT, Height, 93.182, kg, 12/24/20 13:59:00 CDT, Weight donepezil 2020-0 Yes = 1 tab, Jose Francisco zhang 10 mg oral 3-26 PO, Daily, l tablet 19:08: # 90 tab, Ajay n 00 1 Refill(s), Pharmacy: [facility] #[id number], 149.86, cm, 12/24/20 13:59:00 CDT, Height, 93.182, kg, 12/24/20 13:59:00 CDT, Weight primidone 2020-0 Yes 50 mg = 1 Mem [facility] 50 mg oral 3-26 tab, PO, l tablet 19:08: Bedtime, # Jessie nn 00 90 tab, 2 Refill(s), Pharmacy: [id number], 149.86, cm, 12/24/20 13:59:00 CDT, Height, 93.182, kg, 12/24/20 13:59:00 CDT, Weight donepezil 2020-0 Yes = 1 tab, Jose Francisco zhang 10 mg oral 3-26 PO, Daily, l tablet 19:08: # 90 tab, Ajay n 00 1 Refill(s), Pharmacy: [id number], 149.86, cm, 12/24/20 13:59:00 CDT, Height, 93.182, kg, 12/24/20 13:59:00 CDT, Weight primidone 2021-0 Yes 50 mg = 1 Mem [facility] 50 mg oral 3-26 tab, PO, l tablet 19:08: Bedtime, # Jessie nn 00 90 tab, 2 Refill(s), Pharmacy: [id number], 149.86, cm, 12/24/20 13:59:00 CDT, Height, 93.182, kg, 12/24/20 13:59:00 CDT, Weight donepezil 1-0 Yes = 1 tab, Jose Francisco zhang 10 mg oral 3-26 PO, Daily, l tablet 19:08: # 90 tab, Ajay n 00 1 Refill(s), Pharmacy: [facility] #[id number], 149.86, cm, 12/24/20 13:59:00 CDT, Height, 93.182, kg, 12/24/20 13:59:00 CDT, Weight primidone 1-0 Yes 50 mg = 1 Mem [facility] 50 mg oral 3-26 tab, PO, l tablet 19:08: Bedtime, # Jessie nn 00 90 tab, 2 Refill(s), Pharmacy: [facility] #[id number], 149.86, cm, 12/24/20 13:59:00 CDT, Height, 93.182, kg, 12/24/20 13:59:00 CDT, Weight donepezil 1-0 Yes = 1 tab, Jose Francisco zhang 10 mg oral 3-26 PO, Daily, l tablet 19:08: # 90 tab, Ajay n 00 1 Refill(s), Pharmacy: [id number], 149.86, cm, 12/24/20 13:59:00 CDT, Height, 93.182, kg, 12/24/20 13:59:00 CDT, Weight primidone 2021-0 Yes 50 mg = 1 Mem [facility] 50 mg oral 3-26 tab, PO, l tablet 19:08: Bedtime, # Jessie nn 00 90 tab, 2 Refill(s), Pharmacy: [facility] #[id number], 149.86, cm, 12/24/20 13:59:00 CDT, Height, 93.182, kg, 12/24/20 13:59:00 CDT, Weight donepezil 2020-0 Yes = 1 tab, Jose Francisco zhang 10 mg oral 3-26 PO, Daily, l tablet 19:08: # 90 tab, Ajay n 00 1 Refill(s), Pharmacy: [facility] #[id number], 149.86, cm, 12/24/20 13:59:00 CDT, Height, 93.182, kg, 12/24/20 13:59:00 CDT, Weight primidone 0 Yes 50 mg = 1 Mem [facility] 50 mg oral 3-26 tab, PO, l tablet 19:08: Bedtime, # Jessie nn 00 90 tab, 2 Refill(s), Pharmacy: [facility] #[id number], 149.86, cm, 12/24/20 13:59:00 CDT, Height, 93.182, kg, 12/24/20 13:59:00 CDT, Weight Lidocaine Lidocaine 2020-0 No 10mg Com sun 3- [facility] 00:00: - [facility] 00 [facility] Celestone Celestone 2020-0 No 6mg Com mon Soluspan Soluspan 3-11 [facility] (Betamethas (Betamethas 00:00: - [facility] one) one) 00 [facility] Lidocaine Lidocaine 2020-0 No 10mg Com mon 3-11 [facility] 00:00: - [facility] 00 [facility] Celestone Celestone 2020-0 No 6mg Com mon Soluspan Soluspan 3-11 [facility] (Betamethas (Betamethas 00:00: - [facility] one) one) 00 [facility] Lidocaine Lidocaine 2020-0 No 10mg Com mon 3-11 [facility] 00:00: - [facility] 00 [facility] Celestone Celestone 2020-0 No 6mg Com mon Soluspan Soluspan 3-11 [facility] (Betamethas (Betamethas 00:00: - [facility] one) one) 00 [facility] Lidocaine Lidocaine 2020-0 No 10mg Com mon 12-09 [facility] 00:00: - [facility] 00 [facility] Celestone Celestone 2020-0 No 6mg Com mon Soluspan Soluspan 3-11 [facility] (Betamethas (Betamethas 00:00: - [facility] one) one) 00 [facility] Lidocaine Lidocaine 2020-0 No 10mg Com mon 12-09 [facility] 00:00: - [facility] 00 [facility] Celestone Celestone 2020-0 No 6mg Com mon Soluspan Soluspan 3-11 [facility] (Betamethas (Betamethas 00:00: - [facility] one) one) 00 [facility] Lidocaine Lidocaine 2020-0 No 10mg Com 12-09 [facility] 00:00: - [facility] 00 [facility] Celestone Celestone 2020-0 No 6mg Com mon Soluspan Soluspan 3-11 [facility] (Betamethas (Betamethas 00:00: - [facility]I one) one) 00 [facility] Lidocaine Lidocaine 2020-0 No 10mg Com 12-09 [facility] 00:00: - [facility] 00 [facility] Celestone Celestone 2020-0 No 6mg Com mon Soluspan Soluspan 3-11 [facility] (Betamethas (Betamethas 00:00: - [facility]I one) one) 00 [facility] Lidocaine Lidocaine 2020-0 No 10mg Com mon 3 [facility] 00:00: - [facility] 00 [facility] Celestone Celestone 2020-0 No 6mg Com mon Soluspan Soluspan 3-11 [facility] (Betamethas (Betamethas 00:00: - [facility] one) one) 00 [facility] Lovastatin 2019- No 20 mg, 1 Mem oria 2-07 tab, l 03:00: Route: PO, Raul 00 Drug form: TAB, Bedtime, Dosing Weight 104.545, kg, Start date: 09/05/20 21:00:00 PSYCHIATRIC ARNP, Duration: 30 day, Stop date: 10/04/20 21:00:00 PSYCHIATRIC ARNP Primidone 2019- No Notes: Memori a 2-07 (Same as: l 03:00: Mysoline) Raul Lipitor 2019-10 No Notes: Memoria 2-07 (Same As: l 03:00: Lipitor) Lovastatin 2019-10 No 20 mg, 1 Mem oria 2-07 tab, l 03:00: Route: PO, Raul 00 Drug form: TAB, Bedtime, Dosing Weight 104.545, kg, Start date: 09/05/20 21:00:00 PSYCHIATRIC ARNP, Duration: 30 day, Stop date: 10/04/20 21:00:00 PSYCHIATRIC ARNP Primidone 2019-10 No Notes: Memori a 2-07 (Same as: l 03:00: Mysoline) Lipitor 2019-10 No Notes: Memoria 2-07 (Same As: l 03:00: Lipitor) Lovastatin 2019-10 No 20 mg, 1 Mem oria 2-07 tab, l 03:00: Route: PO, [place] 00 Drug form: TAB, Bedtime, Dosing Weight 104.545, kg, Start date: 09/05/20 21:00:00 PSYCHIATRIC ARNP, Duration: 30 day, Stop date: 10/04/20 21:00:00 PSYCHIATRIC ARNP Primidone 2019-10 No Notes: Memori a 2-07 (Same as: l 03:00: [place]) Lipitor 2019-10 No Notes: Memoria 2-07 (Same As: l 03:00: Lipitor) Lovastatin 2019-10 No 20 mg, 1 Mem oria 2-07 tab, l 03:00: Route: PO, [place] 00 Drug form: TAB, Bedtime, Dosing Weight 104.545, kg, Start date: 09/05/20 21:00:00 PSYCHIATRIC ARNP, Duration: 30 day, Stop date: 10/04/20 21:00:00 PSYCHIATRIC ARNP Primidone 2019-10 No Notes: Memori a 2-07 (Same as: l 03:00: Mysoline) Lipitor 2019-10 No Notes: Memoria 2-07 (Same As: l 03:00: Lipitor) Lovastatin 2019-10 No 20 mg, 1 Mem oria 2-07 tab, l 03:00: Route: PO, Raul 00 Drug form: TAB, Bedtime, Dosing Weight 104.545, kg, Start date: 09/05/20 21:00:00 PSYCHIATRIC ARNP, Duration: 30 day, Stop date: 10/04/20 21:00:00 PSYCHIATRIC ARNP Primidone 2019-10 No Notes: Memori a 2-07 (Same as: l 03:00: Mysoline) Lipitor 2019-10 No Notes: Memoria 2-07 (Same As: l 03:00: Lipitor) Lovastatin 2019-10 No 20 mg, 1 Mem oria 2-07 tab, l 03:00: Route: PO, Raul 00 Drug form: TAB, Bedtime, Dosing Weight 104.545, kg, Start date: 09/05/20 21:00:00 PSYCHIATRIC ARNP, Duration: 30 day, Stop date: 10/04/20 21:00:00 PSYCHIATRIC ARNP Primidone 2019-10 No Notes: Memori a 2-07 (Same as: l 03:00: Mysoline) Lipitor 2019-10 No Notes: Memoria 2-07 (Same As: l 03:00: Lipitor) Lovastatin 2019-10 No 20 mg, 1 Mem oria 2-07 tab, l 03:00: Route: PO, [place] 00 Drug form: TAB, Bedtime, Dosing Weight 104.545, kg, Start date: 09/05/20 21:00:00 PSYCHIATRIC ARNP, Duration: 30 day, Stop date: 10/04/20 21:00:00 PSYCHIATRIC ARNP Primidone 2019-10 No Notes: Memori a 2-07 (Same as: l 03:00: Mysoline) Lipitor 2019-10 No Notes: Memoria 2-07 (Same As: l 03:00: Lipitor) Lovastatin 2019-10 No 20 mg, 1 Mem oria 2-07 tab, l 03:00: Route: PO, Raul 00 Drug form: TAB, Bedtime, Dosing Weight 104.545, kg, Start date: 09/05/20 21:00:00 PSYCHIATRIC ARNP, Duration: 30 day, Stop date: 10/04/20 21:00:00 PSYCHIATRIC ARNP Primidone 2019-10 No Notes: Memori a 2-07 (Same as: l 03:00: Mysoline) Lipitor 2019-10 No Notes: Memoria 2-07 (Same As: l 03:00: Lipitor) Lovastatin 2019-10 No 20 mg, 1 Mem oria 2-07 tab, l 03:00: Route: PO, [place] 00 Drug form: TAB, Bedtime, Dosing Weight 104.545, kg, Start date: 09/05/20 21:00:00 PSYCHIATRIC ARNP, Duration: 30 day, Stop date: 10/04/20 21:00:00 PSYCHIATRIC ARNP Primidone 2019- No Notes: Memori a 2-07 (Same as: l 03:00: Mysoline) Lovastatin 2019-10 No 20 mg, 1 Mem oria 2-07 tab, l 03:00: Route: PO, Ra[place] 00 Drug form: TAB, Bedtime, Dosing Weight 104.545, kg, Start date: 09/05/20 21:00:00 PSYCHIATRIC ARNP, Duration: 30 day, Stop date: 10/04/20 21:00:00 PSYCHIATRIC ARNP Lovastatin 2019-10 No 20 mg, 1 Mem oria 2-07 tab, l 03:00: Route: PO, Ra[place] 00 Drug form: TAB, Bedtime, Dosing Weight 104.545, kg, Start date: 09/05/20 21:00:00 PSYCHIATRIC ARNP, Duration: 30 day, Stop date: 10/04/20 21:00:00 PSYCHIATRIC ARNP Primidone 2019-10 No Notes: Memori a 2-07 (Same as: l 03:00: Mysoline) Lipitor 2019-10 No Notes: Memoria 2-07 (Same As: l 03:00: Lipitor) Primidone 2019-10 No Notes: Memori a 2-07 (Same as: l 03:00: Mysoline) Lipitor 2019-10 No Notes: Memoria 2-07 (Same As: l 03:00: Lipitor) Raul 00 Lipitor 2019-10 No Notes: Memoria 2-07 (Same As: l 03:00: Lipitor) Lovastatin 2019-10 No 20 mg, 1 Mem oria 2-07 tab, l 03:00: Route: PO, [place] 00 Drug form: TAB, Bedtime, Dosing Weight 104.545, kg, Start date: 09/05/20 21:00:00 PSYCHIATRIC ARNP, Duration: 30 day, Stop date: 10/04/20 21:00:00 PSYCHIATRIC ARNP Primidone 2019-10 No Notes: Memori a 2-07 (Same as: l 03:00: Mysoline) Lipitor 2019-10 No Notes: Memoria 2-07 (Same As: l 03:00: Lipitor) Lovastatin 2019-10 No 20 mg, 1 Mem oria 2-07 tab, l 03:00: Route: PO, [place] 00 Drug form: TAB, Bedtime, Dosing Weight 104.545, kg, Start date: 09/05/20 21:00:00 PSYCHIATRIC ARNP, Duration: 30 day, Stop date: 10/04/20 21:00:00 PSYCHIATRIC ARNP Primidone 2019-10 No Notes: Memori a 2-07 (Same as: l 03:00: Mysoline) Lipitor 2019-10 No Notes: Memoria 2-07 (Same As: l 03:00: Lipitor) Lovastatin 2019-10 No 20 mg, 1 Mem oria 2-07 tab, l 03:00: Route: PO, [place] 00 Drug form: TAB, Bedtime, Dosing Weight 104.545, kg, Start date: 09/05/20 21:00:00 PSYCHIATRIC ARNP, Duration: 30 day, Stop date: 10/04/20 21:00:00 PSYCHIATRIC ARNP Primidone 2019-10 No Notes: Memori a 2-07 (Same as: l 03:00: Mysoline) Lipitor 2019-10 No Notes: Memoria 2-07 (Same As: l 03:00: Lipitor) Lovastatin 2019-10 No 20 mg, 1 Mem oria 2-07 tab, l 03:00: Route: PO, Drug form: TAB, Bedtime, Dosing Weight 104.545, kg, Start date: 09/05/20 21:00:00 PSYCHIATRIC ARNP, Duration: 30 day, Stop date: 10/04/20 21:00:00 PSYCHIATRIC ARNP Primidone 2019-10 No Notes: Memori a 2-07 [...] 104.545, kg, Daily, Start date: 09/05/20 9:00:00 PSYCHIATRIC ARNP, Duration: 30 day, Stop date: 10/04/20 9:00:00 PSYCHIATRIC ARNP gabapentin 2019-10 No Notes: Memor ia 300 [...] 104.545, kg, Daily, Start date: 09/05/20 9:00:00 PSYCHIATRIC ARNP, Duration: 30 day, Stop date: 10/04/20 9:00:00 PSYCHIATRIC ARNP gabapentin 2019-10 No Notes: Memor ia 300 [...] 104.545, kg, Daily, Start date: 09/05/20 9:00:00 PSYCHIATRIC ARNP, Duration: 30 day, Stop date: 10/04/20 9:00:00 PSYCHIATRIC ARNP gabapentin 2019-10 No Notes: Memor ia 300 MG Oral 2-06 (Same as: l Capsule 15:00: Neurontin) ropinirole 2019-10 No Notes: Memor ia 2-06 (Same as: l 15:00: Requip) Bupropion 2019-10 No Notes: Memori a 2-06 (Same as: l 15:00: Wellbutrin [place] 00 XL) "Do Not Crush" carvedilol 2019-10 [...] inhalation l 62.5 mcg-25 15:00: , [facility] , Drug powder Form: PWDR, Dosing Weight 104.545, kg, Daily, Start date: 09/05/20 9:00:00 PSYCHIATRIC ARNP, Duration: 30 day, Stop date: 10/04/20 9:00:00 PSYCHIATRIC ARNP gabapentin 2019-10 No Notes: Memor ia 300 [...] 104.545, kg, Daily, Start date: 09/05/20 9:00:00 PSYCHIATRIC ARNP, Duration: 30 day, Stop date: 10/04/20 9:00:00 PSYCHIATRIC ARNP gabapentin 2019-10 No Notes: Memor ia 300 [...] 104.545, kg, Daily, Start date: 09/05/20 9:00:00 PSYCHIATRIC ARNP, Duration: 30 day, Stop date: 10/04/20 9:00:00 PSYCHIATRIC ARNP gabapentin 2019-10 No Notes: Memor ia 300 MG Oral 2-06 (Same as: l Capsule 15:00: Neurontin) ropinirole 2019-10 No Notes: Memor ia 2-06 (Same as: l 15:00: Requip) Bupropion 2019-10 No Notes: Memori a 2-06 (Same as: l 15:00: Wellbutrin [place] 00 XL) "Do Not Crush" carvedilol 2019-10 No Notes: Memor ia 2-06 Give with l 15:00: food. [place] 00 (Same As: Coreg) donepezil 2019-10 No [...] 104.545, kg, Daily, Start date: 09/05/20 9:00:00 PSYCHIATRIC ARNP, Duration: 30 day, Stop date: 10/04/20 9:00:00 PSYCHIATRIC ARNP gabapentin 2019-10 No Notes: Memor ia 300 [...] 104.545, kg, Daily, Start date: 09/05/20 9:00:00 PSYCHIATRIC ARNP, Duration: 30 day, Stop date: 10/04/20 9:00:00 PSYCHIATRIC ARNP gabapentin 2019-10 No Notes: Memor ia 300 [...] 104.545, kg, Daily, Start date: 09/05/20 9:00:00 PSYCHIATRIC ARNP, Duration: 30 day, Stop date: 10/04/20 9:00:00 PSYCHIATRIC ARNP gabapentin 2019-10 No Notes: Memor ia 300 MG Oral 2-06 (Same as: l Capsule 15:00: Neurontin) ropinirole 2019-10 No Notes: Memor ia 2-06 (Same as: l 15:00: Requip) Bupropion 2019-10 No Notes: Memori a 2-06 (Same as: l 15:00: Wellbutrin [place] 00 XL) "Do Not Crush" carvedilol 2019-10 [...] 104.545, kg, Daily, Start date: 09/05/20 9:00:00 PSYCHIATRIC ARNP, Duration: 30 day, Stop date: 10/04/20 9:00:00 PSYCHIATRIC ARNP gabapentin 2019-10 No Notes: Memor ia 300 MG Oral 2-06 (Same as: l Capsule 15:00: Neurontin) ropinirole 2019-10 No Notes: Memor ia 2-06 (Same as: l 15:00: Requip) Bupropion 2019-10 No Notes: Memori a 2-06 (Same as: l 15:00: Wellbutrin [place] 00 XL) "Do Not Crush" carvedilol 2019-10 No Notes: Memor ia 2-06 Give with l 15:00: food. (Same As: Coreg) Bupropion 2019-10 No Notes: Memori a 2-06 [...] 104.545, kg, Daily, Start date: 09/05/20 9:00:00 PSYCHIATRIC ARNP, Duration: 30 day, Stop date: 10/04/20 9:00:00 PSYCHIATRIC ARNP gabapentin 2019-10 No Notes: Memor ia 300 MG Oral 2-06 (Same as: l Capsule 15:00: Neurontin) ropinirole 2019-10 No Notes: Memor ia 2-06 (Same as: l 15:00: Requip) donepezil 2019-10 No Notes: Memori a 2-06 [...] 104.545, kg, Daily, Start date: 09/05/20 9:00:00 PSYCHIATRIC ARNP, Duration: 30 day, Stop date: 10/04/20 9:00:00 PSYCHIATRIC ARNP gabapentin 2019-10 No Notes: Memor ia 300 MG Oral 2-06 (Same as: l Capsule 15:00: Neurontin) ropinirole 2019-10 No Notes: Memor ia 2-06 (Same as: l 15:00: Requip) Bupropion 2019-10 No Notes: Memori a 2-06 (Same as: l 15:00: Wellbutrin [place] 00 XL) "Do Not Crush" carvedilol 2019-10 [...] 104.545, kg, Daily, Start date: 09/05/20 9:00:00 PSYCHIATRIC ARNP, Duration: 30 day, Stop date: 10/04/20 9:00:00 PSYCHIATRIC ARNP gabapentin 2019-10 No Notes: Memor ia 300 [...] 104.545, kg, Daily, Start date: 09/05/20 9:00:00 PSYCHIATRIC ARNP, Duration: 30 day, Stop date: 10/04/20 9:00:00 PSYCHIATRIC ARNP gabapentin 2019-10 No Notes: Memor ia 300 [...] 104.545, kg, Daily, Start date: 09/05/20 9:00:00 PSYCHIATRIC ARNP, Duration: 30 day, Stop date: 10/04/20 9:00:00 PSYCHIATRIC ARNP gabapentin 2019-10 No Notes: Memor ia 300 MG Oral 2-06 (Same as: l Capsule 15:00: Neurontin) ropinirole 2019-10 No Notes: Memor ia 2-06 (Same as: l 15:00: Requip) Streptococc 2019-10 No Notes: Jose Francisco zhang us 2-06 Shake well l pneumoniae 14:12: prior to Her ivory serotype 1 45 use (Same capsular as: antigen Prevnar diphtheria 13) [id number] protein conjugate vaccine / Streptococc us pneumoniae serotype 14 capsular antigen diphtheria [id number] protein conjugate vaccine / Streptococc us pneumoniae serotype 18C capsular antigen d Streptococc 2020- No Notes: Jose Francisco zhang us 2-06 Shake well l pneumoniae 14:12: prior to Her ivory serotype 1 45 use (Same capsular as: antigen Prevnar diphtheria 13) [id number] protein conjugate vaccine / Streptococc us pneumoniae serotype 14 capsular antigen diphtheria [id number] protein conjugate vaccine / Streptococc us pneumoniae serotype 18C capsular antigen d Streptococc 2020- No Notes: Jose Francisco zhang us 2-06 Shake well l pneumoniae 14:12: prior to Her ivory serotype 1 45 use (Same capsular as: antigen Prevnar diphtheria 13) [id number] protein conjugate vaccine / Streptococc us pneumoniae serotype 14 capsular antigen diphtheria [id number] protein conjugate vaccine / Streptococc us pneumoniae serotype 18C capsular antigen d Streptococc 2020- No Notes: Jose Francisco zhang us 2-06 Shake well l pneumoniae 14:12: prior to Her ivory serotype 1 45 use (Same capsular as: antigen Prevnar diphtheria 13) [id number] protein conjugate vaccine / Streptococc us pneumoniae serotype 14 capsular antigen diphtheria [id number] protein conjugate vaccine / Streptococc us pneumoniae serotype 18C capsular antigen d Streptococc 2020- No Notes: Jose Francisco zhang us 2-06 Shake well l pneumoniae 14:12: prior to Her ivory serotype 1 45 use (Same capsular as: antigen Prevnar diphtheria 13) [id number] protein conjugate vaccine / Streptococc us pneumoniae serotype 14 capsular antigen diphtheria [id number] protein conjugate vaccine / Streptococc us pneumoniae serotype 18C capsular antigen d Streptococc 2020- No Notes: Jose Francisco zhang us 2-06 Shake well l pneumoniae 14:12: prior to Her ivory serotype 1 45 use (Same capsular as: antigen Prevnar diphtheria 13) [id number] protein conjugate vaccine / Streptococc us pneumoniae serotype 14 capsular antigen diphtheria [id number] protein conjugate vaccine / Streptococc us pneumoniae serotype 18C capsular antigen d Streptococc 2020- No Notes: Jose Francisco zhang us 2-06 Shake well l pneumoniae 14:12: prior to Her ivory serotype 1 45 use (Same capsular as: antigen Prevnar diphtheria 13) [id number] protein conjugate vaccine / Streptococc us pneumoniae serotype 14 capsular antigen diphtheria [id number] protein conjugate vaccine / Streptococc us pneumoniae serotype 18C capsular antigen d Streptococc 2020- No Notes: Jose Francisco zhang us 2-06 Shake well l pneumoniae 14:12: prior to Her ivory serotype 1 45 use (Same capsular as: antigen Prevnar diphtheria 13) [id number] protein conjugate vaccine / Streptococc us pneumoniae serotype 14 capsular antigen diphtheria [id number] protein conjugate vaccine / Streptococc us pneumoniae serotype 18C capsular antigen d Streptococc 2020- No Notes: Jose Francisco zhang us 2-06 Shake well l pneumoniae 14:12: prior to Her ivory serotype 1 45 use (Same capsular as: antigen Prevnar diphtheria 13) [id number] protein conjugate vaccine / Streptococc us pneumoniae serotype 14 capsular antigen diphtheria [id number] protein conjugate vaccine / Streptococc us pneumoniae serotype 18C capsular antigen d Streptococc 2019- No Notes: Jose Francisco zhang 2-06 Shake well l pneumoniae 14:12: prior to Her ivory serotype 1 45 use (Same capsular as: antigen Prevnar diphtheria 13) [id number] protein conjugate vaccine / Streptococc us pneumoniae serotype 14 capsular antigen diphtheria [id number] protein conjugate vaccine / Streptococc us pneumoniae serotype 18C capsular antigen d Streptococc 2019- No Notes: [facility] to Her ivory serotype 1 45 use (Same capsular as: antigen Prevnar diphtheria 13) [id number] protein conjugate vaccine / Streptococc us pneumoniae serotype 14 capsular antigen diphtheria [id number] protein conjugate vaccine / Streptococc us pneumoniae serotype 18C capsular antigen d Streptococc 2019- No Notes: Jose Francisco zhang 2-06 Shake well l pneumoniae 14:12: prior to Her ivory serotype 1 45 use (Same capsular as: antigen Prevnar diphtheria 13) [id number] protein conjugate vaccine / Streptococc us pneumoniae serotype 14 capsular antigen diphtheria [id number] protein conjugate vaccine / Streptococc us pneumoniae serotype 18C capsular antigen d Streptococc 2019- No Notes: Jose Francisco zhang 2-06 Shake well l pneumoniae 14:12: prior to Her ivory serotype 1 45 use (Same capsular as: antigen Prevnar diphtheria 13) [id number] protein conjugate vaccine / Streptococc us pneumoniae serotype 14 capsular antigen diphtheria [id number] protein conjugate vaccine / Streptococc us pneumoniae serotype 18C capsular antigen d Streptococc 2019- No Notes: Jose Francisco zhang 2-06 Shake well l pneumoniae 14:12: prior to Her ivory serotype 1 45 use (Same capsular as: antigen Prevnar diphtheria 13) [id number] protein conjugate vaccine / Streptococc us pneumoniae serotype 14 capsular antigen diphtheria [id number] protein conjugate vaccine / Streptococc us pneumoniae serotype 18C capsular antigen d Streptococc 2019-10 No Notes: Jose Francisco zhang us 2-06 Shake well l pneumoniae 14:12: prior to Her ivory serotype 1 45 use (Same capsular as: antigen Prevnar diphtheria 13) [id number] protein conjugate vaccine / Streptococc us pneumoniae serotype 14 capsular antigen diphtheria [id number] protein conjugate vaccine / Streptococc us pneumoniae serotype 18C capsular antigen d Thyroxine 2019-10 No Notes: Memori a 2-06 Take 1 l 14:00: hour [place] 00 before or 2 hours after meal; Enteral feeds may interefere with the absorption of this medication . (Same as:Levothr oid) Thyroxine 2019-10 No Notes: Memori a 2-06 Take 1 l 14:00: hour [place] 00 before or 2 hours after meal; Enteral feeds may interefere with the absorption of this medication . (Same as:Levothr oid) Thyroxine 2019-10 No Notes: Memori a 2-06 Take 1 l 14:00: hour [place] 00 before or 2 hours after meal; Enteral feeds may interefere with the absorption of this medication . (Same as:Levothr oid) Thyroxine 2019-10 No Notes: Memori a 2-06 Take 1 l 14:00: hour [place] 00 before or 2 hours after meal; [...] a 2-06 Take 1 l 14:00: hour [place] 00 before or 2 hours after meal; Enteral feeds may interefere with the absorption of this medication . (Same as:Levothr oid) Thyroxine 2019-10 No Notes: Memori a 2-06 Take 1 l 14:00: hour [place] 00 before or 2 hours after meal; Enteral feeds may interefere with the absorption of this medication . (Same as:Levothr oid) Thyroxine 2019-10 No Notes: Memori a 2-06 Take 1 l 14:00: hour [place] 00 before or 2 hours after meal; Enteral feeds may interefere with the absorption of this medication . (Same as:Levothr oid) Thyroxine 2019-10 No Notes: Memori a 2-06 Take 1 l 14:00: hour [place] 00 before or 2 hours after meal; Enteral feeds may interefere with the absorption of this medication . (Same as:Levothr oid) Thyroxine 2019-10 No Notes: Memori a 2-06 Take 1 l 14:00: hour [place] 00 before or 2 hours after meal; [...] a 2-06 Take 1 l 14:00: hour [place] 00 before or 2 hours after meal; [...] a 2-06 Take 1 l 14:00: hour [place] 00 before or 2 hours after meal; Enteral feeds may interefere with the absorption of this medication . (Same as:Levothr oid) Thyroxine 2019-10 No Notes: Memori a 2-06 Take 1 l 14:00: hour [place] 00 before or 2 hours after meal; Enteral feeds may interefere with the absorption of this medication . (Same as:Levothr oid) Iohexol 2019-10 No 100 mL, Memoria 11-06 Route: l 12:39: IVP, Drug [place] Form: SOLN, Dosing Weight 104.545, kg, ONCALL, STAT, Start date: 09/05/20 6:39:00 PSYCHIATRIC ARNP, Duration: 1 doses or times, Dose = 2.2ml/kg, Max dose = 100ml -- "To be infused by Radiology Staff ONLY" Iohexol 2019-10 No 100 mL, Memoria 2 Route: l 12:39: IVP, Drug [place] 00 Form: SOLN, Dosing Weight 104.545, kg, ONCALL, STAT, Start date: 09/05/20 6:39:00 PSYCHIATRIC ARNP, Duration: 1 doses or times, Dose = 2.2ml/kg, Max dose = 100ml -- "To be infused by Radiology Staff ONLY" Iohexol 2020-1 No 100 mL, Memoria 2-06 Route: l 12:39: IVP, Drug [place] 00 Form: SOLN, Dosing Weight 104.545, kg, ONCALL, STAT, Start date: 09/05/20 6:39:00 PSYCHIATRIC ARNP, Duration: 1 doses or times, Dose = 2.2ml/kg, Max dose = 100ml -- "To be infused by Radiology Staff ONLY" Iohexol 2020-1 No 100 mL, Memoria 2- Route: l 12:39: IVP, Drug [place] 00 Form: SOLN, Dosing Weight 104.545, kg, ONCALL, STAT, Start date: 09/05/20 6:39:00 PSYCHIATRIC ARNP, Duration: 1 doses or times, Dose = 2.2ml/kg, Max dose = 100ml -- "To be infused by Radiology Staff ONLY" Iohexol 2020-1 No 100 mL, Memoria 2-06 Route: l 12:39: IVP, Drug [place] 00 Form: SOLN, Dosing Weight 104.545, kg, ONCALL, STAT, Start date: 09/05/20 6:39:00 PSYCHIATRIC ARNP, Duration: 1 doses or times, Dose = 2.2ml/kg, Max dose = 100ml -- "To be infused by Radiology Staff ONLY" Iohexol 2020-1 No 100 mL, Memoria 2-06 Route: l 12:39: IVP, Drug [place] 00 Form: SOLN, Dosing Weight 104.545, kg, ONCALL, STAT, Start date: 09/05/20 6:39:00 PSYCHIATRIC ARNP, Duration: 1 doses or times, Dose = 2.2ml/kg, Max dose = 100ml -- "To be infused by Radiology Staff ONLY" Iohexol 2020-1 No 100 mL, Memoria 2-06 Route: l 12:39: IVP, Drug [place] 00 Form: SOLN, Dosing Weight 104.545, kg, ONCALL, STAT, Start date: 09/05/20 6:39:00 PSYCHIATRIC ARNP, Duration: 1 doses or times, Dose = 2.2ml/kg, Max dose = 100ml -- "To be infused by Radiology Staff ONLY" Iohexol 2020-1 No 100 mL, Memoria 2-06 Route: l 12:39: IVP, Drug [place] 00 Form: SOLN, Dosing Weight 104.545, kg, ONCALL, STAT, Start date: 09/05/20 6:39:00 PSYCHIATRIC ARNP, Duration: 1 doses or times, Dose = 2.2ml/kg, Max dose = 100ml -- "To be infused by Radiology Staff ONLY" Iohexol 2020-1 No 100 mL, Memoria 2-06 Route: l 12:39: IVP, Drug [place] 00 Form: SOLN, Dosing Weight 104.545, kg, ONCALL, STAT, Start date: 09/05/20 6:39:00 PSYCHIATRIC ARNP, Duration: 1 doses or times, Dose = 2.2ml/kg, Max dose = 100ml -- "To be infused by Radiology Staff ONLY" Iohexol 2020-1 No 100 mL, Memoria 2- Route: l 12:39: IVP, Drug [place] 00 Form: SOLN, Dosing Weight 104.545, kg, ONCALL, STAT, Start date: 09/05/20 6:39:00 PSYCHIATRIC ARNP, Duration: 1 doses or times, Dose = 2.2ml/kg, Max dose = 100ml -- "To be infused by Radiology Staff ONLY" Iohexol 2020-1 No 100 mL, Memoria 2-06 Route: l 12:39: IVP, Drug [place] 00 Form: SOLN, Dosing Weight 104.545, kg, ONCALL, STAT, Start date: 09/05/20 6:39:00 PSYCHIATRIC ARNP, Duration: 1 doses or times, Dose = 2.2ml/kg, Max dose = 100ml -- "To be infused by Radiology Staff ONLY" Iohexol 2020-1 No 100 mL, Memoria 2-06 Route: l 12:39: IVP, Drug [place] 00 Form: SOLN, Dosing Weight 104.545, kg, ONCALL, STAT, Start date: 09/05/20 6:39:00 PSYCHIATRIC ARNP, Duration: 1 doses or times, Dose = 2.2ml/kg, Max dose = 100ml -- "To be infused by Radiology Staff ONLY" Iohexol 2019- No 100 mL, Memoria 2-06 Route: l 12:39: IVP, Drug [place] 00 Form: SOLN, Dosing Weight 104.545, kg, ONCALL, STAT, Start date: 09/05/20 6:39:00 PSYCHIATRIC ARNP, Duration: 1 doses or times, Dose = 2.2ml/kg, Max dose = 100ml -- "To be infused by Radiology Staff ONLY" Iohexol 2019-10 No 100 mL, Memoria 2-06 Route: l 12:39: IVP, Drug [place] 00 Form: SOLN, Dosing Weight 104.545, kg, ONCALL, STAT, Start date: 09/05/20 6:39:00 PSYCHIATRIC ARNP, Duration: 1 doses or times, Dose = 2.2ml/kg, Max dose = 100ml -- "To be infused by Radiology Staff ONLY" Iohexol 2019-10 No 100 mL, Memoria 2-06 Route: l 12:39: IVP, Drug [place] 00 Form: SOLN, Dosing Weight 104.545, kg, ONCALL, STAT, Start date: 09/05/20 6:39:00 PSYCHIATRIC ARNP, Duration: 1 doses or times, Dose = [...] en 2-06 acetaminop l 07:00: hen 4000 [place] 00 mg/day (4 gm/day). (Same as: Tylenol [...] en 2-06 acetaminop l 07:00: hen 4000 [place] 00 mg/day (4 gm/day). (Same as: Tylenol Extra Strength) Acetaminoph 2019-10 No Notes: Max [facility]oria en 2-06 acetaminop l 07:00: hen 4000 [place] 00 mg/day (4 gm/day). (Same as: Tylenol [...] en 2-06 acetaminop l 07:00: hen 4000 [place] 00 mg/day (4 gm/day). (Same as: Tylenol [...] l oral tablet 06:48: BID, # 180 [place] 00 tab, 1 Refill(s) amLODIPine 2019-10 Yes 10 mg = 1 Me moria 10 mg oral 2-06 tab, PO, l tablet 06:48: Daily, # [place] 00 90 tab, 0 Refill(s) escitalopra 2019-10 [...] tab, PO, l Tablet 06:48: Daily, # [place] 00 60 tab, 1 Refill(s) Trelegy 2019-10 [...] tab, PO, l tablet 06:48: Daily, # [place] 00 90 tab, 0 Refill(s) escitalopra 2019-10 [...] tab, PO, l tablet 06:48: Daily, # [place] 00 90 tab, 0 Refill(s) escitalopra 2019-10 [...] tab, PO, l tablet 06:48: Daily, # [place] 00 90 tab, 0 Refill(s) escitalopra 2019-10 [...] tab, PO, l Tablet 06:48: Daily, # [place] 00 60 tab, 1 Refill(s) Trelegy 2019-10 [...] l oral tablet 06:48: BID, # 180 [place] 00 tab, 1 Refill(s) amLODIPine 2019-10 Yes 10 mg = 1 Me moria 10 mg oral 2-06 tab, PO, l tablet 06:48: Daily, # [place] 00 90 tab, 0 Refill(s) escitalopra 2019-10 [...] tab, PO, l Tablet 06:48: Daily, # [place] 00 60 tab, 1 Refill(s) Trelegy 2019-10 [...] tab, PO, l tablet 06:48: Daily, # [place] 00 90 tab, 0 Refill(s) escitalopra 2019-10 [...] tab, PO, l Tablet 06:48: Daily, # [place] 00 60 tab, 1 Refill(s) Trelegy 2019-10 [...] tab, PO, l tablet 06:48: Daily, # [place] 00 90 tab, 0 Refill(s) escitalopra 2019-10 [...] tab, PO, l Tablet 06:48: Daily, # [place] 00 60 tab, 1 Refill(s) Trelegy 2019-10 [...] l oral tablet 06:48: BID, # 180 [place] 00 tab, 1 Refill(s) amLODIPine 2019-10 Yes 10 mg = 1 Me moria 10 mg oral 2-06 tab, PO, l tablet 06:48: Daily, # [place] 00 90 tab, 0 Refill(s) escitalopra 2019-10 [...] tab, PO, l tablet 06:48: Daily, # [place] 00 90 tab, 0 Refill(s) escitalopra 2019-10 [...] tab, PO, l Tablet 06:48: Daily, # [place] 00 60 tab, 1 Refill(s) Trelegy 2019-10 [...] tab, PO, l tablet 06:48: Daily, # [place] 00 90 tab, 0 Refill(s) escitalopra 2019-10 [...] tab, PO, l Tablet 06:48: Daily, # [place] 00 60 tab, 1 Refill(s) Trelegy 2019-10 Yes = 1 [facility] Ellipta 2-06 inhalation l inhalation 06:48: , PO, Ajay n powder 00 Daily, PRN COPD, # 1 ea, 0 Refill(s) Oxycodone 2019-10 No Notes: Memori a Hydrochlori 2-06 (Same as: l de 1 MG/ML 06:48: 'Roxicodon H erm Oral 00 e) Solution spironolact 2019-10 Yes [...] tab, PO, l tablet 06:48: Daily, # [place] 00 90 tab, 0 Refill(s) escitalopra 2019-10 [...] tab, PO, l Tablet 06:48: Daily, # [place] 00 60 tab, 1 Refill(s) Trelegy 2019-10 [...] Blood Glucose Results, Start date: 09/05/20 0:47:00 PSYCHIATRIC ARNP, Duration: 30 day, Stop date: 10/05/20 0:46:00 PSYCHIATRIC ARNP, 0 Glucagon 2019-10 No 1 mg, Memoria 11-06 Route: IM, l 06:47: Drug form: PDR/INJ, PRN, Dosing Weight 104.545, kg, PRN Blood Glucose Results, Start date: 09/05/20 0:47:00 PSYCHIATRIC ARNP, Duration: 30 day, Stop date: 10/05/20 0:46:00 PSYCHIATRIC ARNP, 0 sennosides, 2019-10 No Notes: Jose Francisco [...] a 2-06 (Same as: l 06:47: Melatonin) [place] 00 LR IV 1,000 2019-10 No 1,000 mL, M emoria mL 2- Rate: 100 l 06:47: ml/hr, Infuse over: 10 hr, Route: IV, Dosing Weight 104.545 kg, Total Volume: 1,000, Start date: 09/05/20 0:47:00 PSYCHIATRIC ARNP, Duration: 1 day, Stop date: 09/06/20 0:46:00 PSYCHIATRIC ARNP, 1.97, m2, 0 Tums 2019-10 No Notes: [...] 0.65% - (Same as: l solution 06:47: [place], [place] Deep Sea Nasal [place]). Tessalon 2019-10 No Notes: Memoria Perles 2- (Same As: l 06:47: Tessalon [place] 00 Perles) "Do Not Crush" Guaifenesin 2019-10 No Notes: Jose Francisco zhang 2-06 (Same as: l 06:47: Organidin [place] 00 NR) Blistex 2019-10 No Notes: Memoria [...] Blood Glucose Results, Start date: 09/05/20 0:47:00 PSYCHIATRIC ARNP, Duration: 30 day, Stop date: 10/05/20 0:46:00 PSYCHIATRIC ARNP, 0 Glucagon 2019-10 No 1 mg, Memoria 2- Route: IM, l 06:47: Drug form: [place] 00 PDR/INJ, PRN, Dosing Weight 104.545, kg, PRN Blood Glucose Results, Start date: 09/05/20 0:47:00 PSYCHIATRIC ARNP, Duration: 30 day, Stop date: 10/05/20 0:46:00 PSYCHIATRIC ARNP, 0 sennosides, 2019-10 No Notes: Jose Francisco [...] Total Volume: 1,000, Start date: 09/05/20 0:47:00 PSYCHIATRIC ARNP, Duration: 1 day, Stop date: 09/06/20 0:46:00 PSYCHIATRIC ARNP, 1.97, m2, 0 Tums 2019-10 No Notes: [...] 0.65% 2- (Same as: l solution 06:47: [place], Ra[place] 00 Deep Sea Nasal [place]). Tessalon 2019-10 No Notes: Memoria Perles 2- [...] 206 25 mL, l (D50W) 06:47: Route: IVP, Drug Form: INJ, Dosing Weight 104.545, kg, PRN, PRN Blood Glucose Results, Start date: 09/05/20 0:47:00 PSYCHIATRIC ARNP, Duration: 30 day, Stop date: 10/05/20 0:46:00 PSYCHIATRIC ARNP, 0 Glucagon 2019-10 No 1 mg, Memoria 11-06 Route: IM, l 06:47: Drug form: [place] 00 PDR/INJ, PRN, Dosing Weight 104.545, kg, PRN Blood Glucose Results, Start date: 09/05/20 0:47:00 PSYCHIATRIC ARNP, Duration: 30 day, Stop date: 10/05/20 0:46:00 PSYCHIATRIC ARNP, 0 sennosides, 2019-10 No Notes: Jose Francisco [...] a 2-06 (Same as: l 06:47: Melatonin) [place] 00 LR IV 1,000 2019-10 No 1,000 mL, M emoria mL 2-06 Rate: 100 l 06:47: ml/hr, Infuse over: 10 hr, Route: IV, Dosing Weight 104.545 kg, Total Volume: 1,000, Start date: 09/05/20 0:47:00 PSYCHIATRIC ARNP, Duration: 1 day, Stop date: 09/06/20 0:46:00 PSYCHIATRIC ARNP, 1.97, m2, 0 Tums 2019-10 No Notes: Memoria 2-06 (Same As: l 06:47: Tums) Calcium Carbonate 500 mg = 200 mg elemental calcium Dose = mg calcium carbonate ( mg elemental calcium) Simethicone 2019-10 No Notes: Jose Francisco zhang 2-06 (Same as: l 06:47: Mylicon) Lubricant 2019-10 No Notes: Memori a Eye Drops 2-06 (Same as: l 06:47: Aquasite) [place] 00 Nasal Moist 2019-10 No Notes: Jose Francisco zhang 0.65% 2-06 (Same as: l solution 06:47: [place], [place] Deep Sea Nasal [place]). Tessalon 2019-10 No Notes: Memoria Perles 2-06 (Same As: l 06:47: Tessalon [place] 00 Perles) "Do Not Crush" Guaifenesin 2019-10 No Notes: Jose Francisco zhang 2-06 (Same as: l 06:47: Organidin [place] NR) Blistex 2019-10 No Notes: Memoria topical [...] Blood Glucose Results, Start date: 09/05/20 0:47:00 PSYCHIATRIC ARNP, Duration: 30 day, Stop date: 10/05/20 0:46:00 PSYCHIATRIC ARNP, 0 Glucagon 2019-10 No 1 mg, Memoria 11-06 Route: IM, l 06:47: Drug form: [place] 00 PDR/INJ, PRN, Dosing Weight 104.545, kg, PRN Blood Glucose Results, Start date: 09/05/20 0:47:00 PSYCHIATRIC ARNP, Duration: 30 day, Stop date: 10/05/20 0:46:00 PSYCHIATRIC ARNP, 0 sennosides, 2019-10 No Notes: Jose Francisco [...] Total Volume: 1,000, Start date: 09/05/20 0:47:00 PSYCHIATRIC ARNP, Duration: 1 day, Stop date: 09/06/20 0:46:00 PSYCHIATRIC ARNP, 1.97, m2, 0 Tums 2019-10 No Notes: [...] 0.65% 2- (Same as: l solution 06:47: [place], Deep Sea Nasal [place]). Tessalon 2019-10 No Notes: Memoria Perles 2- [...] Blood Glucose Results, Start date: 09/05/20 0:47:00 PSYCHIATRIC ARNP, Duration: 30 day, Stop date: 10/05/20 0:46:00 PSYCHIATRIC ARNP, 0 Glucagon 2019-10 No 1 mg, Memoria 2- Route: IM, l 06:47: Drug form: PDR/INJ, PRN, Dosing Weight 104.545, kg, PRN Blood Glucose Results, Start date: 09/05/20 0:47:00 PSYCHIATRIC ARNP, Duration: 30 day, Stop date: 10/05/20 0:46:00 PSYCHIATRIC ARNP, 0 sennosides, 2019-10 No Notes: Jose Francisco [...] Total Volume: 1,000, Start date: 09/05/20 0:47:00 PSYCHIATRIC ARNP, Duration: 1 day, Stop date: 09/06/20 0:46:00 PSYCHIATRIC ARNP, 1.97, m2, 0 Tums 2019-10 No Notes: [...] 0.65% 2-06 (Same as: l solution 06:47: [place], [place] 00 Deep Sea Nasal [place]). 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 date: 09/05/20 0:47:00 PSYCHIATRIC ARNP, Duration: 30 day, Stop date: 10/05/20 0:46:00 PSYCHIATRIC ARNP, 0 Glucagon 2019-10 No 1 mg, Memoria 2 Route: IM, l 06:47: Drug form: PDR/INJ, PRN, Dosing Weight 104.545, kg, PRN Blood Glucose Results, Start date: 09/05/20 0:47:00 PSYCHIATRIC ARNP, Duration: 30 day, Stop date: 10/05/20 0:46:00 PSYCHIATRIC ARNP, 0 sennosides, 2019-10 No Notes: Jose Francisco [...] Total Volume: 1,000, Start date: 09/05/20 0:47:00 PSYCHIATRIC ARNP, Duration: 1 day, Stop date: 09/06/20 0:46:00 PSYCHIATRIC ARNP, 1.97, m2, 0 Tums 2019-10 No Notes: [...] 0.65% 2- (Same as: l solution 06:47: [place], [place] 00 Deep Sea Nasal [place]). Tessalon 2019-10 No Notes: Memoria Perles 2- (Same As: l 06:47: [place] Per[place]) "Do Not Crush" Guaifenesin 2019-10 No Notes: Jose Francisco zhang 2-06 (Same as: l 06:47: Organidin [place] 00 NR) Blistex 2019-10 No Notes: Memoria [...] Blood Glucose Results, Start date: 09/05/20 0:47:00 PSYCHIATRIC ARNP, Duration: 30 day, Stop date: 10/05/20 0:46:00 PSYCHIATRIC ARNP, 0 Glucagon 2019-10 No 1 mg, Memoria 11-06 Route: IM, l 06:47: Drug form: PDR/INJ, PRN, Dosing Weight 104.545, kg, PRN Blood Glucose Results, Start date: 09/05/20 0:47:00 PSYCHIATRIC ARNP, Duration: 30 day, Stop date: 10/05/20 0:46:00 PSYCHIATRIC ARNP, 0 sennosides, 2019-10 No Notes: Jose Francisco [...] Total Volume: 1,000, Start date: 09/05/20 0:47:00 PSYCHIATRIC ARNP, Duration: 1 day, Stop date: 09/06/20 0:46:00 PSYCHIATRIC ARNP, 1.97, m2, 0 Tums 2019-10 No Notes: [...] 0.65% 2-06 (Same as: l solution 06:47: [place], [place] 00 Deep Sea Nasal [place]). Tessalon 2019-10 No Notes: Memoria Perles 2-06 (Same As: l 06:47: [place]) "Do Not Crush" Guaifenesin 2019-10 No Notes: Jose Francisco zhang 2-06 (Same as: l 06:47: Organidin [place] 00 NR) Blistex 2019-10 No Notes: Memoria topical 2-06 Same as: l ointment 06:47: Blistex Ajay n 00 Albuterol 2019-10 No Notes: SEE Me moria 0.83 MG/ML 2-06 RT l Inhalant 06:47: DOCUMENTAT Her ivory Solution 00 ION (Same as: Proventil) Dextrose 2019-10 No 12.5 gm, Memor ia 50% Syringe 2-06 25 mL, l (D50W) 06:47: Route: [place] 00 IVP, Drug Form: INJ, Dosing Weight 104.545, kg, PRN, PRN Blood Glucose Results, Start date: 09/05/20 0:47:00 PSYCHIATRIC ARNP, Duration: 30 day, Stop date: 10/05/20 0:46:00 PSYCHIATRIC ARNP, 0 Glucagon 2019-10 No 1 mg, Memoria 11-06 Route: IM, l 06:47: Drug form: PDR/INJ, PRN, Dosing Weight 104.545, kg, PRN Blood Glucose Results, Start date: 09/05/20 0:47:00 PSYCHIATRIC ARNP, Duration: 30 day, Stop date: 10/05/20 0:46:00 PSYCHIATRIC ARNP, 0 sennosides, 2019-10 No Notes: Jose Francisco [...] Total Volume: 1,000, Start date: 09/05/20 0:47:00 PSYCHIATRIC ARNP, Duration: 1 day, Stop date: 09/06/20 0:46:00 PSYCHIATRIC ARNP, 1.97, m2, 0 Tums 2019-10 No Notes: [...] 0.65% 2- (Same as: l solution 06:47: [place], Deep Sea Nasal [place]). 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 date: 09/05/20 0:47:00 PSYCHIATRIC ARNP, Duration: 30 day, Stop date: 10/05/20 0:46:00 PSYCHIATRIC ARNP, 0 Glucagon 2019-10 No 1 mg, Memoria 11-06 Route: IM, l 06:47: Drug form: PDR/INJ, PRN, Dosing Weight 104.545, kg, PRN Blood Glucose Results, Start date: 09/05/20 0:47:00 PSYCHIATRIC ARNP, Duration: 30 day, Stop date: 10/05/20 0:46:00 PSYCHIATRIC ARNP, 0 sennosides, 2019-10 No Notes: Jose Francisco [...] Total Volume: 1,000, Start date: 09/05/20 0:47:00 PSYCHIATRIC ARNP, Duration: 1 day, Stop date: 09/06/20 0:46:00 PSYCHIATRIC ARNP, 1.97, m2, 0 Tums 2019-10 No Notes: [...] 0.65% 2-06 (Same as: l solution 06:47: [place], [place] 00 Deep Sea Nasal [place]). 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 date: 09/05/20 0:47:00 PSYCHIATRIC ARNP, Duration: 30 day, Stop date: 10/05/20 0:46:00 PSYCHIATRIC ARNP, 0 Glucagon 2019-10 No 1 mg, Memoria 11-06 Route: IM, l 06:47: Drug form: [place] 00 PDR/INJ, PRN, Dosing Weight 104.545, kg, PRN Blood Glucose Results, Start date: 09/05/20 0:47:00 PSYCHIATRIC ARNP, Duration: 30 day, Stop date: 10/05/20 0:46:00 PSYCHIATRIC ARNP, 0 sennosides, 2019-10 No Notes: Jose Francisco zhang MCFP 2-06 (Same as: l 06:47: Senokot) [place] 00 POLYETHYLEN 2019-10 No Notes: Jose Francisco zhang E GLYCOL 2-06 Dissolve l 3350 06:47: in 8 oz of water or juice. (Same as: Miralax) Ondansetron 2019-10 No Notes: Jose Francisco zhang 2-06 (Same as: l 06:47: Zofran) [place] 00 MEDICATION WASTE Product Size: 4 mg Product Wasted: ___ mg Melatonin 2019-10 No Notes: Memori a 2-06 (Same as: l 06:47: Melatonin) [place] 00 LR IV 1,000 2019-10 No 1,000 mL, M emoria mL 2-06 Rate: 100 l 06:47: ml/hr, [place] 00 Infuse over: 10 hr, Route: IV, Dosing Weight 104.545 kg, Total Volume: 1,000, Start date: 09/05/20 0:47:00 PSYCHIATRIC ARNP, Duration: 1 day, Stop date: 09/06/20 0:46:00 PSYCHIATRIC ARNP, 1.97, m2, 0 Tums 2019-10 No Notes: [...] 0.65% 2- (Same as: l solution 06:47: [place], [place] 00 Deep Sea Nasal [place]). 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 date: 09/05/20 0:47:00 PSYCHIATRIC ARNP, Duration: 30 day, Stop date: 10/05/20 0:46:00 PSYCHIATRIC ARNP, 0 Glucagon 2019-10 No 1 mg, Memoria 2 Route: IM, l 06:47: Drug form: PDR/INJ, PRN, Dosing Weight 104.545, kg, PRN Blood Glucose Results, Start date: 09/05/20 0:47:00 PSYCHIATRIC ARNP, Duration: 30 day, Stop date: 10/05/20 0:46:00 PSYCHIATRIC ARNP, 0 sennosides, 2019-10 No Notes: Jose Francisco [...] Total Volume: 1,000, Start date: 09/05/20 0:47:00 PSYCHIATRIC ARNP, Duration: 1 day, Stop date: 09/06/20 0:46:00 PSYCHIATRIC ARNP, 1.97, m2, 0 Tums 2019-10 No Notes: [...] 0.65% 2-06 (Same as: l solution 06:47: [place], Deep Sea Nasal [place]). 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 date: 09/05/20 0:47:00 PSYCHIATRIC ARNP, Duration: 30 day, Stop date: 10/05/20 0:46:00 PSYCHIATRIC ARNP, 0 Glucagon 2019-10 No 1 mg, Memoria 11-06 Route: IM, l 06:47: Drug form: [place] 00 PDR/INJ, PRN, Dosing Weight 104.545, kg, PRN Blood Glucose Results, Start date: 09/05/20 0:47:00 PSYCHIATRIC ARNP, Duration: 30 day, Stop date: 10/05/20 0:46:00 PSYCHIATRIC ARNP, 0 sennosides, 2019-10 No Notes: Jose Francisco [...] Total Volume: 1,000, Start date: 09/05/20 0:47:00 PSYCHIATRIC ARNP, Duration: 1 day, Stop date: 09/06/20 0:46:00 PSYCHIATRIC ARNP, 1.97, m2, 0 Tums 2019-10 No Notes: [...] 0.65% 2- (Same as: l solution 06:47: [place], [place] 00 Deep Sea Nasal [place]). Tessalon 2019-10 No Notes: Memoria Perles 2- (Same As: l 06:47: [place] Per[place]) "Do Not Crush" Guaifenesin 2019-10 No Notes: Jose Francisco zhang 2-06 (Same as: l 06:47: Organidin NR) Blistex 2019-10 No Notes: Memoria topical 2- Same as: l ointment 06:47: Blistex Jaay n 00 Albuterol 2019-10 No Notes: SEE Me moria 0.83 MG/ML 2-06 RT l Inhalant 06:47: DOCUMENTAT Her iv[place] Solution 00 ION (Same as: Proventil) Dextrose 2019-10 No 12.5 gm, Memor ia 50% Syringe 2-06 25 mL, l (D50W) 06:47: Route: IVP, Drug Form: INJ, Dosing Weight 104.545, kg, PRN, PRN Blood Glucose Results, Start date: 09/05/20 0:47:00 PSYCHIATRIC ARNP, Duration: 30 day, Stop date: 10/05/20 0:46:00 PSYCHIATRIC ARNP, 0 Glucagon 2019-10 No 1 mg, Memoria 2- Route: IM, l 06:47: Drug form: PDR/INJ, PRN, Dosing Weight 104.545, kg, PRN Blood Glucose Results, Start date: 09/05/20 0:47:00 PSYCHIATRIC ARNP, Duration: 30 day, Stop date: 10/05/20 0:46:00 PSYCHIATRIC ARNP, 0 sennosides, 2019-10 No Notes: Jose Francisco [...] Total Volume: 1,000, Start date: 09/05/20 0:47:00 PSYCHIATRIC ARNP, Duration: 1 day, Stop date: 09/06/20 0:46:00 PSYCHIATRIC ARNP, 1.97, m2, 0 Tums 2019-10 No Notes: [...] 0.65% 2-06 (Same as: l solution 06:47: [place], Deep Sea Nasal [place]). Tessalon 2019-10 No Notes: Memoria Perles 2-06 (Same As: l 06:47: Tess[place] Perles) "Do Not Crush" Guaifenesin 2019-10 No Notes: Jose Francisco zhang 2-06 (Same as: l 06:47: Organidin [place] 00 NR) Dextrose 2019-10 No 12.5 gm, Memor ia 50% Syringe 2-06 25 mL, l (D50W) 06:47: Route: [place] 00 IVP, Drug Form: INJ, Dosing Weight 104.545, kg, PRN, PRN Blood Glucose Results, Start date: 09/05/20 0:47:00 PSYCHIATRIC ARNP, Duration: 30 day, Stop date: 10/05/20 0:46:00 PSYCHIATRIC ARNP, 0 Glucagon 2019-10 No 1 mg, Memoria 2- Route: IM, l 06:47: Drug form: [place] 00 PDR/INJ, PRN, Dosing Weight 104.545, kg, PRN Blood Glucose Results, Start date: 09/05/20 0:47:00 PSYCHIATRIC ARNP, Duration: 30 day, Stop date: 10/05/20 0:46:00 PSYCHIATRIC ARNP, 0 sennosides, 2019-10 No Notes: Jose Francisco [...] Total Volume: 1,000, Start date: 09/05/20 0:47:00 PSYCHIATRIC ARNP, Duration: 1 day, Stop date: 09/06/20 0:46:00 PSYCHIATRIC ARNP, 1.97, m2, 0 Tums 2019-10 No Notes: [...] 0.65% 2- (Same as: l solution 06:47: [place], [place] 00 Deep Sea Nasal [place]). Tessalon 2019-10 No Notes: Memoria Perles 2-06 (Same As: l 06:47: [place] Perles) "Do Not Crush" Guaifenesin 2019-10 No Notes: Jose Francisco zhang 2-06 (Same as: l 06:47: Organidin [place] 00 NR) Blistex 2019-10 No Notes: Memoria [...] Blood Glucose Results, Start date: 09/05/20 0:47:00 PSYCHIATRIC ARNP, Duration: 30 day, Stop date: 10/05/20 0:46:00 PSYCHIATRIC ARNP, 0 Glucagon 2019-10 No 1 mg, Memoria 206 Route: IM, l 06:47: Drug form: [place] PDR/INJ, PRN, Dosing Weight 104.545, kg, PRN Blood Glucose Results, Start date: 09/05/20 0:47:00 PSYCHIATRIC ARNP, Duration: 30 day, Stop date: 10/05/20 0:46:00 PSYCHIATRIC ARNP, 0 sennosides, 2019-10 No Notes: Jose Francisco [...] Total Volume: 1,000, Start date: 09/05/20 0:47:00 PSYCHIATRIC ARNP, Duration: 1 day, Stop date: 09/06/20 0:46:00 PSYCHIATRIC ARNP, 1.97, m2, 0 Tums 2019-10 No Notes: [...] 0.65% 2-06 (Same as: l solution 06:47: [place], [place] 00 Deep Sea Nasal [place]). Tess[place]on 2019-10 No Notes: Memoria Perles 2-06 [...] zhang 2-06 (Same as: l 06:45: Apresoline [place] 00 ) Push over 5 minutes Hydralazine 2019-10 No Notes: Jose Francisco zhang 2-06 (Same as: l 06:45: Apresoline [place] 00 ) Push over 5 minutes Hydralazine 2019-10 No Notes: Jose Francisco zhang 2-06 (Same as: l 06:45: Apresoline [place] 00 ) Push over 5 minutes Hydralazine 2019-10 No Notes: Jose Francisco zhang 2-06 (Same as: l 06:45: Apresoline [place] 00 ) Push over 5 minutes Hydralazine 2019-10 No Notes: Jose Francisco zhang 2-06 (Same as: l 06:45: Apresoline [place] 00 ) Push over 5 minutes Hydralazine 2019-10 No Notes: Jose Francisco zhang 2-06 (Same as: l 06:45: Apresoline [place] 00 ) Push over 5 minutes Hydralazine 2019-10 No Notes: Jose Francisco zhang 2-06 (Same as: l 06:45: Apresoline [place] 00 ) Push over 5 minutes Hydralazine 2019-10 No Notes: Jose Francisco zhang 2-06 (Same as: l 06:45: Apresoline [place] 00 ) Push over 5 minutes Hydralazine 2019-10 No Notes: Jose Francisco zhang 2-06 (Same as: l 06:45: Apresoline [place] 00 ) Push over 5 minutes Hydralazine 2019-10 No Notes: Jose Francisco zhang 2-06 (Same as: l 06:45: Apresoline [place] 00 ) Push over 5 minutes Hydralazine 2019-10 No Notes: Jose Francisco zhang 2-06 (Same as: l 06:45: Apresoline [place] 00 ) Push over 5 minutes Hydralazine 2019-10 No Notes: Jose Francisco zhang 2-06 (Same as: l 06:45: Apresoline [place] 00 ) Push over 5 minutes Hydralazine 2019-10 No Notes: Jose Francisco zhang 2-06 (Same as: l 06:45: Apresoline [place] 00 ) Push over 5 minutes Hydralazine 2019-10 No Notes: Jose Francisco zhang 2-06 (Same as: l 06:45: Apresoline [place] 00 ) Push over 5 minutes Hydralazine 2019-10 No Notes: Jose Francisco zhang 2-06 (Same as: l 06:45: Apresoline [place] 00 ) Push over 5 minutes Acetaminoph 2019-10 No 1 tab, Jose Francisco zhang en 325 MG / 2-06 Route: PO, l Hydrocodone 04:07: Drug Form: [place] Bitartrate 00 TAB, 5 MG Oral Dosing Tablet Weight 104.545, kg, ONCE, STAT, Start date: 09/04/20 22:07:00 PSYCHIATRIC ARNP, Stop date: 09/04/20 22:07:00 PSYCHIATRIC ARNP Acetaminoph 2019-10 No 1 tab, Jose Francisco zhang en 325 MG / 2-06 Route: PO, l Hydrocodone 04:07: Drug Form: [place] Bitartrate 00 TAB, 5 MG Oral Dosing Tablet Weight 104.545, kg, ONCE, STAT, Start date: 09/04/20 22:07:00 PSYCHIATRIC ARNP, Stop date: 09/04/20 22:07:00 PSYCHIATRIC ARNP Acetaminoph 2019-10 No 1 tab, Jose Francisco zhang en 325 MG / 2-06 Route: PO, l Hydrocodone 04:07: Drug Form: [place] Bitartrate 00 TAB, 5 MG Oral Dosing Tablet Weight 104.545, kg, ONCE, STAT, Start date: 09/04/20 22:07:00 PSYCHIATRIC ARNP, Stop date: 09/04/20 22:07:00 PSYCHIATRIC ARNP Acetaminoph 2019-10 No 1 tab, Jose Francisco zhang en 325 MG / 2-06 Route: PO, l Hydrocodone 04:07: Drug Form: [place] Bitartrate 00 TAB, 5 MG Oral Dosing Tablet Weight 104.545, kg, ONCE, STAT, Start date: 09/04/20 22:07:00 PSYCHIATRIC ARNP, Stop date: 09/04/20 22:07:00 PSYCHIATRIC ARNP Acetaminoph 2019-10 No 1 tab, Jose Francisco zhang en 325 MG / 2-06 Route: PO, l Hydrocodone 04:07: Drug Form: [place] Bitartrate 00 TAB, 5 MG Oral Dosing Tablet Weight 104.545, kg, ONCE, STAT, Start date: 09/04/20 22:07:00 PSYCHIATRIC ARNP, Stop date: 09/04/20 22:07:00 PSYCHIATRIC ARNP Acetaminoph 2019-10 No 1 tab, Jose Francisco zhang en 325 MG / 2-06 Route: PO, l Hydrocodone 04:07: Drug Form: [place] Bitartrate 00 TAB, 5 MG Oral Dosing Tablet Weight 104.545, kg, ONCE, STAT, Start date: 09/04/20 22:07:00 PSYCHIATRIC ARNP, Stop date: 09/04/20 22:07:00 PSYCHIATRIC ARNP Acetaminoph 2019-10 No 1 tab, Jose Francisco zhang en 325 MG / 2-06 Route: PO, l Hydrocodone 04:07: Drug Form: [place] Bitartrate 00 TAB, 5 MG Oral Dosing Tablet Weight 104.545, kg, ONCE, STAT, Start date: 09/04/20 22:07:00 PSYCHIATRIC ARNP, Stop date: 09/04/20 22:07:00 PSYCHIATRIC ARNP Acetaminoph 2019-10 No 1 tab, Jose Francisco zhang en 325 MG / 2-06 Route: PO, l Hydrocodone 04:07: Drug Form: [place] Bitartrate 00 TAB, 5 MG Oral Dosing Tablet Weight 104.545, kg, ONCE, STAT, Start date: 09/04/20 22:07:00 PSYCHIATRIC ARNP, Stop date: 09/04/20 22:07:00 PSYCHIATRIC ARNP Acetaminoph 2019-10 No 1 tab, Jose Francisco zhang en 325 MG / 2-06 Route: PO, l Hydrocodone 04:07: Drug Form: [place] Bitartrate 00 TAB, 5 MG Oral Dosing Tablet Weight 104.545, kg, ONCE, STAT, Start date: 09/04/20 22:07:00 PSYCHIATRIC ARNP, Stop date: 09/04/20 22:07:00 PSYCHIATRIC ARNP Acetaminoph 2019-10 No 1 tab, Jose Francisco zhang en 325 MG / 2-06 Route: PO, l Hydrocodone 04:07: Drug Form: [place] Bitartrate 00 TAB, 5 MG Oral Dosing Tablet Weight 104.545, kg, ONCE, STAT, Start date: 09/04/20 22:07:00 PSYCHIATRIC ARNP, Stop date: 09/04/20 22:07:00 PSYCHIATRIC ARNP Acetaminoph 2019-10 No 1 tab, Jose Francisco zhang en 325 MG / 2-06 Route: PO, l Hydrocodone 04:07: Drug Form: [place] Bitartrate 00 TAB, 5 MG Oral Dosing Tablet Weight 104.545, kg, ONCE, STAT, Start date: 09/04/20 22:07:00 PSYCHIATRIC ARNP, Stop date: 09/04/20 22:07:00 PSYCHIATRIC ARNP Acetaminoph 2019-10 No 1 tab, Jose Francisco zhang en 325 MG / 2-06 Route: PO, l Hydrocodone 04:07: Drug Form: [place] Bitartrate 00 TAB, 5 MG Oral Dosing Tablet Weight 104.545, kg, ONCE, STAT, Start date: 09/04/20 22:07:00 PSYCHIATRIC ARNP, Stop date: 09/04/20 22:07:00 PSYCHIATRIC ARNP Acetaminoph 2019-10 No 1 tab, Jose Francisco zhang en 325 MG / 2-06 Route: PO, l Hydrocodone 04:07: Drug Form: [place] Bitartrate 00 TAB, 5 MG Oral Dosing Tablet Weight 104.545, kg, ONCE, STAT, Start date: 09/04/20 22:07:00 PSYCHIATRIC ARNP, Stop date: 09/04/20 22:07:00 PSYCHIATRIC ARNP Acetaminoph 2019-10 No 1 tab, Jose Francisco zhang en 325 MG / 2-06 Route: PO, l Hydrocodone 04:07: Drug Form: [place] Bitartrate 00 TAB, 5 MG Oral Dosing Tablet Weight 104.545, kg, ONCE, STAT, Start date: 09/04/20 22:07:00 PSYCHIATRIC ARNP, Stop date: 09/04/20 22:07:00 PSYCHIATRIC ARNP Acetaminoph 2019-10 No 1 tab, Jose Francisco zhang en 325 MG / 2-06 Route: PO, l Hydrocodone 04:07: Drug Form: [place] Bitartrate 00 TAB, 5 MG Oral Dosing Tablet Weight 104.545, kg, ONCE, STAT, Start date: 09/04/20 22:07:00 PSYCHIATRIC ARNP, Stop date: 09/04/20 22:07:00 PSYCHIATRIC ARNP HYDROcodone 2019-0 2019- No 1{tbl} 1 tablet, [facility] -acetaminop 06-28 Oral, ity of hen (NORCO 20:30: 19:23 ONCE, 1 Carlos as 5) 5-325 mg 00 :00 dose, Mon Med ical tablet 1 06/28/20 at [facility] h tablet 1530, DIMITRIS metoprolol 2019- 2020- [...] hours as needed. ALBUTER[facility] 2019-0 [facility] 17:14: [place] [facility] misoprostol 0 2020- No 200ug [...] rs SULFATE 9-28 ity of INHALE 12:14: [place] [id number] [facility] diphenoxyla 2020-0 Yes 1{tbl} Take 1 Un martha te-atropine 9-28 tablet by ity of (LOMOTIL) 12:14: mouth [place] 2.5-0.025 43 every 6 Medical mg tablet (six) Branch hours as needed. ALBUTEROL 2020-0 Yes Inhale. Unive rs SULFATE 9-28 ity of INHALE 12:14: [place] [address] [facility] acetaminoph 2020-0 Yes [id number] 1{tbl} [...] Jessie nn 00 tab, 3 Refill(s), Pharmacy: [facility] #[id number], 149.86, cm, 05/25/20 13:41:00 CDT, Height, 95.455, kg, 05/25/20 13:41:00 CDT, Weight primidone 2020-0 Yes 50 mg = 1 Mem oria 50 mg oral 8-25 tab, PO, l tablet 19:03: BID, # 180 Jessie nn 00 tab, 3 Refill(s), Pharmacy: [id number], 149.86, cm, 05/25/20 13:41:00 CDT, Height, 95.455, kg, 05/25/20 13:41:00 CDT, Weight primidone 2020-0 Yes 50 mg = 1 Mem oria 50 mg oral 8-25 tab, PO, l tablet 19:03: BID, # 180 Jessie nn 00 tab, 3 Refill(s), Pharmacy: [facility] #[id number], 149.86, cm, 05/25/20 13:41:00 CDT, Height, 95.455, kg, 05/25/20 13:41:00 CDT, Weight primidone 2020-0 Yes 50 mg = 1 Mem oria 50 mg oral 8-25 tab, PO, l tablet 19:03: BID, # 180 Jessie nn 00 tab, 3 Refill(s), Pharmacy: [facility] #[id number], 149.86, cm, 05/25/20 13:41:00 CDT, Height, 95.455, kg, 05/25/20 13:41:00 CDT, Weight primidone 2020-0 Yes 50 mg = 1 Mem oria 50 mg oral 8-25 tab, PO, l tablet 19:03: BID, # 180 Jessie nn 00 tab, 3 Refill(s), Pharmacy: [facility] #[id number], 149.86, cm, 05/25/20 13:41:00 CDT, Height, 95.455, kg, 05/25/20 13:41:00 CDT, Weight primidone 2020-0 Yes 50 mg = 1 Mem oria 50 mg oral 8-25 tab, PO, l tablet 19:03: BID, # 180 Jessie nn 00 tab, 3 Refill(s), Pharmacy: [id number], 149.86, cm, 05/25/20 13:41:00 CDT, Height, 95.455, kg, 05/25/20 13:41:00 CDT, Weight primidone 2020-0 Yes 50 mg = 1 Mem oria 50 mg oral 8-25 tab, PO, l tablet 19:03: BID, # 180 Jessie nn 00 tab, 3 Refill(s), Pharmacy: [id number], 149.86, cm, 05/25/20 13:41:00 CDT, Height, 95.455, kg, 05/25/20 13:41:00 CDT, Weight primidone 2020-0 Yes 50 mg = 1 Mem oria 50 mg oral 8-25 tab, PO, l tablet 19:03: BID, # 180 Jessie nn 00 tab, 3 Refill(s), Pharmacy: [facility] #[id number], 149.86, cm, 05/25/20 13:41:00 CDT, Height, 95.455, kg, 05/25/20 13:41:00 CDT, Weight primidone 2020-0 Yes 50 mg = 1 Mem oria 50 mg oral 8-25 tab, PO, l tablet 19:03: BID, # 180 Jessie nn 00 tab, 3 Refill(s), Pharmacy: [id number], 149.86, cm, 05/25/20 13:41:00 CDT, Height, 95.455, kg, 05/25/20 13:41:00 CDT, Weight primidone 2020-0 Yes 50 mg = 1 Mem oria 50 mg oral 8-25 tab, PO, l tablet 19:03: BID, # 180 Jessie nn 00 tab, 3 Refill(s), Pharmacy: [facility] #[id number], 149.86, cm, 05/25/20 13:41:00 CDT, Height, 95.455, kg, 05/25/20 13:41:00 CDT, Weight primidone 2020-0 Yes 50 mg = 1 Mem oria 50 mg oral 8-25 tab, PO, l tablet 19:03: BID, # 180 Jessie nn 00 tab, 3 Refill(s), Pharmacy: [facility] #[id number], 149.86, cm, 05/25/20 13:41:00 CDT, Height, 95.455, kg, 05/25/20 13:41:00 CDT, Weight primidone 2020-0 Yes 50 mg = 1 Mem oria 50 mg oral 8-25 tab, PO, l tablet 19:03: BID, # 180 Jessie nn 00 tab, 3 Refill(s), Pharmacy: [facility] #[id number], 149.86, cm, 05/25/20 13:41:00 CDT, Height, 95.455, kg, 05/25/20 13:41:00 CDT, Weight primidone 2020-0 Yes 50 mg = 1 Mem oria 50 mg oral 8-25 tab, PO, l tablet 19:03: BID, # 180 Jessie nn 00 tab, 3 Refill(s), Pharmacy: [facility] #[id number], 149.86, cm, 05/25/20 13:41:00 CDT, Height, 95.455, kg, 05/25/20 13:41:00 CDT, Weight primidone 2020-0 Yes 50 mg = 1 Mem oria 50 mg oral 8-25 tab, PO, l tablet 19:03: BID, # 180 Jessie nn 00 tab, 3 Refill(s), Pharmacy: [facility] #[id number], 149.86, cm, 05/25/20 13:41:00 CDT, Height, 95.455, kg, 05/25/20 13:41:00 CDT, Weight primidone 2020-0 Yes 50 mg = 1 Mem oria 50 mg oral 8-25 tab, PO, l tablet 19:03: BID, # 180 Jessie nn 00 tab, 3 Refill(s), Pharmacy: [facility] #[id number], 149.86, cm, 05/25/20 13:41:00 CDT, Height, 95.455, kg, 05/25/20 13:41:00 CDT, Weight primidone 2020-0 No 50 mg = 1 Mem oria 50 mg oral 6-25 tab, PO, l tablet 13:48: Bedtime, # Jessie nn 00 90 tab, 3 Refill(s), Pharmacy: [facility] #[id number], 149.86, cm, 03/24/20 9:12:00 CDT, Height, 90.909, kg, 03/24/20 9:12:00 CDT, Weight primidone 2020-0 No 50 mg = 1 Mem oria 50 mg oral 6-25 tab, PO, l tablet 13:48: Bedtime, # Jessie nn 00 90 tab, 3 Refill(s), Pharmacy: [facility] #[id number], 149.86, cm, 03/24/20 9:12:00 CDT, Height, 90.909, kg, 03/24/20 9:12:00 CDT, Weight primidone 2020-0 No 50 mg = 1 Mem oria 50 mg oral 6-25 tab, PO, l tablet 13:48: Bedtime, # Jessie nn 00 90 tab, 3 Refill(s), Pharmacy: [facility] #[id number], 149.86, cm, 03/24/20 9:12:00 CDT, Height, 90.909, kg, 03/24/20 9:12:00 CDT, Weight primidone 2020-0 No 50 mg = 1 Mem oria 50 mg oral 6-25 tab, PO, l tablet 13:48: Bedtime, # Jessie nn 00 90 tab, 3 Refill(s), Pharmacy: [facility] #[id number], 149.86, cm, 03/24/20 9:12:00 CDT, Height, 90.909, kg, 03/24/20 9:12:00 CDT, Weight primidone 2020-0 No 50 mg = 1 Mem oria 50 mg oral 6-25 tab, PO, l tablet 13:48: Bedtime, # Jessie nn 00 90 tab, 3 Refill(s), Pharmacy: [facility] #[id number], 149.86, cm, 03/24/20 9:12:00 CDT, Height, 90.909, kg, 03/24/20 9:12:00 CDT, Weight primidone 2020-0 No 50 mg = 1 Mem oria 50 mg oral 6-25 tab, PO, l tablet 13:48: Bedtime, # Jessie nn 00 90 tab, 3 Refill(s), Pharmacy: [facility] #[id number], 149.86, cm, 03/24/20 9:12:00 CDT, Height, 90.909, kg, 03/24/20 9:12:00 CDT, Weight primidone 2020-0 No 50 mg = 1 Mem oria 50 mg oral 6-25 tab, PO, l tablet 13:48: Bedtime, # Jessie nn 00 90 tab, 3 Refill(s), Pharmacy: [facility] #[id number], 149.86, cm, 03/24/20 9:12:00 CDT, Height, 90.909, kg, 03/24/20 9:12:00 CDT, Weight primidone 2020-0 No 50 mg = 1 Mem oria 50 mg oral 6-25 tab, PO, l tablet 13:48: Bedtime, # Jessie nn 00 90 tab, 3 Refill(s), Pharmacy: [facility] #[id number], 149.86, cm, 03/24/20 9:12:00 CDT, Height, 90.909, kg, 03/24/20 9:12:00 CDT, Weight primidone 2020-0 No 50 mg = 1 Mem oria 50 mg oral 6-25 tab, PO, l tablet 13:48: Bedtime, # Jessie nn 00 90 tab, 3 Refill(s), Pharmacy: [facility] #[id number], 149.86, cm, 03/24/20 9:12:00 CDT, Height, 90.909, kg, 03/24/20 9:12:00 CDT, Weight primidone 2020-0 No 50 mg = 1 Mem oria 50 mg oral 6-25 tab, PO, l tablet 13:48: Bedtime, # Jessie nn 00 90 tab, 3 Refill(s), Pharmacy: [facility] #[id number], 149.86, cm, 03/24/20 9:12:00 CDT, Height, 90.909, kg, 03/24/20 9:12:00 CDT, Weight primidone 2020-0 No 50 mg = 1 Mem oria 50 mg oral 6-25 tab, PO, l tablet 13:48: Bedtime, # Jessie nn 00 90 tab, 3 Refill(s), Pharmacy: [facility] #[id number], 149.86, cm, 03/24/20 9:12:00 CDT, Height, 90.909, kg, 03/24/20 9:12:00 CDT, Weight primidone 2020-0 No 50 mg = 1 Mem oria 50 mg oral 6-25 tab, PO, l tablet 13:48: Bedtime, # Jessie nn 00 90 tab, 3 Refill(s), Pharmacy: [facility] #[id number], 149.86, cm, 03/24/20 9:12:00 CDT, Height, 90.909, kg, 03/24/20 9:12:00 CDT, Weight primidone 2020-0 No 50 mg = 1 Mem oria 50 mg oral 6-25 tab, PO, l tablet 13:48: Bedtime, # Jessie nn 00 90 tab, 3 Refill(s), Pharmacy: [facility] #[id number], 149.86, cm, 03/24/20 9:12:00 CDT, Height, 90.909, kg, 03/24/20 9:12:00 CDT, Weight primidone 2020-0 No 50 mg = 1 Mem oria 50 mg oral 6-25 tab, PO, l tablet 13:48: Bedtime, # Jessie nn 00 90 tab, 3 Refill(s), Pharmacy: [facility] #[id number], 149.86, cm, 03/24/20 9:12:00 CDT, Height, 90.909, kg, 03/24/20 9:12:00 CDT, Weight primidone 2020-0 No 50 mg = 1 Mem oria 50 mg oral 6-25 tab, PO, l tablet 13:48: Bedtime, # Jessie nn 00 90 tab, 3 Refill(s), Pharmacy: [facility] #[id number], 149.86, cm, 03/24/20 9:12:00 CDT, Height, 90.909, kg, 03/24/20 9:12:00 CDT, Weight donepezil 2020-0 Yes 10 mg = 1 Mem oria 10 mg oral 6-24 tab, PO, l tablet 14:32: Daily, # [place] 00 30 tab, 3 Refill(s), Pharmacy: [facility] #[id number], 149.86, cm, 03/24/20 9:12:00 CDT, Height, 90.909, kg, 03/24/20 9:12:00 CDT, Weight primidone 2020-0 No 50 mg = 1 Mem oria 50 mg oral 6-24 tab, PO, l tablet 14:32: Bedtime, X Jessie nn 30 day, # 30 tab, 3 Refill(s), Pharmacy: [facility] #[id number], 149.86, cm, 03/24/20 9:12:00 CDT, Height, 90.909, kg, 03/24/20 9:12:00 CDT, Weight donepezil 2020-0 Yes 10 mg = 1 Mem oria 10 mg oral 6-24 tab, PO, l tablet 14:32: Daily, # Raul 00 30 tab, 3 Refill(s), Pharmacy: [facility] #[id number], 149.86, cm, 03/24/20 9:12:00 CDT, Height, 90.909, kg, 03/24/20 9:12:00 CDT, Weight primidone 2020-0 No 50 mg = 1 Mem oria 50 mg oral 6-24 tab, PO, l tablet 14:32: Bedtime, X Jessie nn 00 30 day, # 30 tab, 3 Refill(s), Pharmacy: [facility] #[id number], 149.86, cm, 03/24/20 9:12:00 CDT, Height, 90.909, kg, 03/24/20 9:12:00 CDT, Weight donepezil 2020-0 Yes 10 mg = 1 Mem oria 10 mg oral 6-24 tab, PO, l tablet 14:32: Daily, # Raul 00 30 tab, 3 Refill(s), Pharmacy: [facility] #[id number], 149.86, cm, 03/24/20 9:12:00 CDT, Height, 90.909, kg, 03/24/20 9:12:00 CDT, Weight primidone 2020-0 No 50 mg = 1 Mem oria 50 mg oral 6-24 tab, PO, l tablet 14:32: Bedtime, X Jessie nn 30 day, # 30 tab, 3 Refill(s), Pharmacy: [facility] #[id number], 149.86, cm, 03/24/20 9:12:00 CDT, Height, 90.909, kg, 03/24/20 9:12:00 CDT, Weight donepezil 2020-0 Yes 10 mg = 1 Mem oria 10 mg oral 6-24 tab, PO, l tablet 14:32: Daily, # [place] 00 30 tab, 3 Refill(s), Pharmacy: [facility] #[id number], 149.86, cm, 03/24/20 9:12:00 CDT, Height, 90.909, kg, 03/24/20 9:12:00 CDT, Weight primidone 2020-0 No 50 mg = 1 Mem oria 50 mg oral 6-24 tab, PO, l tablet 14:32: Bedtime, X Jessie nn 30 day, # 30 tab, 3 Refill(s), Pharmacy: [facility] #[id number], 149.86, cm, 03/24/20 9:12:00 CDT, Height, 90.909, kg, 03/24/20 9:12:00 CDT, Weight donepezil 2020-0 Yes 10 mg = 1 Mem oria 10 mg oral 6-24 tab, PO, l tablet 14:32: Daily, # [place] 00 30 tab, 3 Refill(s), Pharmacy: [facility] #[id number], 149.86, cm, 03/24/20 9:12:00 CDT, Height, 90.909, kg, 03/24/20 9:12:00 CDT, Weight primidone 2020-0 No 50 mg = 1 Mem oria 50 mg oral 6-24 tab, PO, l tablet 14:32: Bedtime, X Jessie nn 30 day, # 30 tab, 3 Refill(s), Pharmacy: [facility] #[id number], 149.86, cm, 03/24/20 9:12:00 CDT, Height, 90.909, kg, 03/24/20 9:12:00 CDT, Weight donepezil 2020-0 Yes 10 mg = 1 Mem oria 10 mg oral 6-24 tab, PO, l tablet 14:32: Daily, # [place] 00 30 tab, 3 Refill(s), Pharmacy: [facility] #[id number], 149.86, cm, 03/24/20 9:12:00 CDT, Height, 90.909, kg, 03/24/20 9:12:00 CDT, Weight primidone 2020-0 No 50 mg = 1 Mem oria 50 mg oral 6-24 tab, PO, l tablet 14:32: Bedtime, X Jessie nn 30 day, # 30 tab, 3 Refill(s), Pharmacy: [facility] #[id number], 149.86, cm, 03/24/20 9:12:00 CDT, Height, 90.909, kg, 03/24/20 9:12:00 CDT, Weight donepezil 2020-0 Yes 10 mg = 1 Mem oria 10 mg oral 6-24 tab, PO, l tablet 14:32: Daily, # [place] 00 30 tab, 3 Refill(s), Pharmacy: [facility] #[id number], 149.86, cm, 03/24/20 9:12:00 CDT, Height, 90.909, kg, 03/24/20 9:12:00 CDT, Weight primidone 2020-0 No 50 mg = 1 Mem oria 50 mg oral 6-24 tab, PO, l tablet 14:32: Bedtime, X Jessie nn 30 day, # 30 tab, 3 Refill(s), Pharmacy: [facility] #[id number], 149.86, cm, 03/24/20 9:12:00 CDT, Height, 90.909, kg, 03/24/20 9:12:00 CDT, Weight donepezil 2020-0 Yes 10 mg = 1 Mem oria 10 mg oral 6-24 tab, PO, l tablet 14:32: Daily, # Raul 00 30 tab, 3 Refill(s), Pharmacy: [facility] #[id number], 149.86, cm, 03/24/20 9:12:00 CDT, Height, 90.909, kg, 03/24/20 9:12:00 CDT, Weight primidone 2020-0 No 50 mg = 1 Mem oria 50 mg oral 6-24 tab, PO, l tablet 14:32: Bedtime, X Jessie nn 30 day, # 30 tab, 3 Refill(s), Pharmacy: [facility] #[id number], 149.86, cm, 03/24/20 9:12:00 CDT, Height, 90.909, kg, 03/24/20 9:12:00 CDT, Weight donepezil 2020-0 Yes 10 mg = 1 Mem oria 10 mg oral 6-24 tab, PO, l tablet 14:32: Daily, # Raul 00 30 tab, 3 Refill(s), Pharmacy: [facility] #[id number], 149.86, cm, 03/24/20 9:12:00 CDT, Height, 90.909, kg, 03/24/20 9:12:00 CDT, Weight primidone 2020-0 No 50 mg = 1 Mem oria 50 mg oral 6-24 tab, PO, l tablet 14:32: Bedtime, X Jessie nn 30 day, # 30 tab, 3 Refill(s), Pharmacy: [facility] #[id number], 149.86, cm, 03/24/20 9:12:00 CDT, Height, 90.909, kg, 03/24/20 9:12:00 CDT, Weight donepezil 2020-0 Yes 10 mg = 1 Mem oria 10 mg oral 6-24 tab, PO, l tablet 14:32: Daily, # [place] 00 30 tab, 3 Refill(s), Pharmacy: [facility] #[id number], 149.86, cm, 03/24/20 9:12:00 CDT, Height, 90.909, kg, 03/24/20 9:12:00 CDT, Weight primidone 2020-0 No 50 mg = 1 Mem oria 50 mg oral 6-24 tab, PO, l tablet 14:32: Bedtime, X Jessie nn 30 day, # 30 tab, 3 Refill(s), Pharmacy: [facility] #[id number], 149.86, cm, 03/24/20 9:12:00 CDT, Height, 90.909, kg, 03/24/20 9:12:00 CDT, Weight donepezil 2020-0 Yes 10 mg = 1 Mem oria 10 mg oral 6-24 tab, PO, l tablet 14:32: Daily, # Raul 00 30 tab, 3 Refill(s), Pharmacy: [facility] #[id number], 149.86, cm, 03/24/20 9:12:00 CDT, Height, 90.909, kg, 03/24/20 9:12:00 CDT, Weight primidone 2020-0 No 50 mg = 1 Mem oria 50 mg oral 6-24 tab, PO, l tablet 14:32: Bedtime, X Jessie nn 30 day, # 30 tab, 3 Refill(s), Pharmacy: [facility] #[id number], 149.86, cm, 03/24/20 9:12:00 CDT, Height, 90.909, kg, 03/24/20 9:12:00 CDT, Weight donepezil 2020-0 Yes 10 mg = 1 Mem oria 10 mg oral 6-24 tab, PO, l tablet 14:32: Daily, # Raul 00 30 tab, 3 Refill(s), Pharmacy: [facility] #[id number], 149.86, cm, 03/24/20 9:12:00 CDT, Height, 90.909, kg, 03/24/20 9:12:00 CDT, Weight primidone 2020-0 No 50 mg = 1 Mem oria 50 mg oral 6-24 tab, PO, l tablet 14:32: Bedtime, X Jessie nn 30 day, # 30 tab, 3 Refill(s), Pharmacy: [facility] #[id number], 149.86, cm, 03/24/20 9:12:00 CDT, Height, 90.909, kg, 03/24/20 9:12:00 CDT, Weight donepezil 2020-0 Yes 10 mg = 1 Mem oria 10 mg oral 6-24 tab, PO, l tablet 14:32: Daily, # Raul 00 30 tab, 3 Refill(s), Pharmacy: [facility] #[id number], 149.86, cm, 03/24/20 9:12:00 CDT, Height, 90.909, kg, 03/24/20 9:12:00 CDT, Weight primidone 2020-0 No 50 mg = 1 Mem oria 50 mg oral 6-24 tab, PO, l tablet 14:32: Bedtime, X Jessie nn 30 day, # 30 tab, 3 Refill(s), Pharmacy: [facility] #[id number], 149.86, cm, 03/24/20 9:12:00 CDT, Height, 90.909, kg, 03/24/20 9:12:00 CDT, Weight donepezil 2020-0 Yes 10 mg = 1 Mem oria 10 mg oral 6-24 tab, PO, l tablet 14:32: Daily, # [place] 00 30 tab, 3 Refill(s), Pharmacy: [facility] #[id number], 149.86, cm, 03/24/20 9:12:00 CDT, Height, 90.909, kg, 03/24/20 9:12:00 CDT, Weight primidone 2020-0 No 50 mg = 1 Mem oria 50 mg oral 6-24 tab, PO, l tablet 14:32: Bedtime, X Jessie nn 30 day, # 30 tab, 3 Refill(s), Pharmacy: [facility] #[id number], 149.86, cm, 03/24/20 9:12:00 CDT, Height, 90.909, kg, 03/24/20 9:12:00 CDT, Weight donepezil 2020-0 Yes 10 mg = 1 Mem oria 10 mg oral 6-24 tab, PO, l tablet 14:32: Daily, # [place] 00 30 tab, 3 Refill(s), Pharmacy: [facility] #[id number], 149.86, cm, 03/24/20 9:12:00 CDT, Height, 90.909, kg, 03/24/20 9:12:00 CDT, Weight primidone No 50 mg = 1 Mem oria 50 mg oral 6-24 tab, PO, l tablet 14:32: Bedtime, X Jessie nn day, # 30 tab, 3 Refill(s), Pharmacy: [facility] #[id number], 149.86, cm, 03/24/20 9:12:00 CDT, Height, 90.909, kg, 03/24/20 9:12:00 CDT, Weight sucralfate 2019- Yes [id number] .[id number][in_ Apply 0.25 [employer] [facility], 02-18 us] Inches as ity of polymerized 00:00: directed 4 [place] 1 gram/10 00 (four) Medical mL Pste times [place] daily as needed for Pain (scale 1-3). sucralfate 2019-0 2019- No [id number] .[id number][in_ Apply 0.25 [employer] mal[facility], 02-18 09-28 [...] 7-26 MISC, l 21:45: Daily, # 1 [place] 00 ea, 0 Refill(s) Walker 2018- Yes 1 ea, Memoria 7-26 MISC, l 21:45: Daily, # 1 [place] 00 ea, 0 Refill(s) [place] Yes 1 ea, Memoria 7-26 MISC, l 21:45: Daily, # 1 [place] 00 ea, 0 Refill(s) [place] Yes 1 [...] 7-26 MISC, l 21:45: Daily, # 1 [place] 00 ea, 0 Refill(s) [place] 2018- Yes 1 ea, Memoria 7-26 MISC, l 21:45: Daily, # 1 Raul 00 ea, 0 Refill(s) [place] 2018- Yes 1 ea, Memoria 7-26 MISC, l 21:45: Daily, # 1 [place] 00 ea, 0 Refill(s) Walker 2018-0 Yes [...] Refill(s) [place] 2019-0 Yes 1 ea, Memoria - MISC, l 21:45: Daily, # 1 [place] 00 ea, 0 Refill(s) [place] 2018-0 Yes 1 ea, Memoria 7- MISC, l 21:45: Daily, # 1 [place] 00 ea, 0 Refill(s) Adult 2019-0 Yes 81 mg = 1 Memoria Aspirin 81 6-21 tab, CHEW, l mg oral 20:18: Daily, # Ajay n tablet, 00 30 tab, 3 chewable Refill(s), Pharmacy: [facility] #[id number] Adult [address] Yes 81 mg = 1 Memoria Aspirin 81 6-21 tab, CHEW, l mg oral 20:18: Daily, # Ajay n tablet, 00 30 tab, 3 chewable Refill(s), Pharmacy: [facility] #[id number] Adult 2019 Yes 81 mg = 1 Memoria Aspirin 81 6-21 tab, CHEW, l mg oral 20:18: Daily, # Ajay n tablet, 00 30 tab, 3 chewable Refill(s), Pharmacy: [facility] #[id number] Adult 2019 Yes 81 mg = 1 Memoria Aspirin 81 6-21 tab, CHEW, l mg oral 20:18: Daily, # Ajay n tablet, 00 30 tab, 3 chewable Refill(s), Pharmacy: [facility] #[id number] Adult 2019-0 Yes 81 mg = 1 Memoria Aspirin 81 6-21 tab, CHEW, l mg oral 20:18: Daily, # Ajay n tablet, 00 30 tab, 3 chewable Refill(s), Pharmacy: [facility] #[id number] Adult [address] Yes 81 mg = 1 Memoria Aspirin 81 6-21 tab, CHEW, l mg oral 20:18: Daily, # Ajay n tablet, 00 30 tab, 3 chewable Refill(s), Pharmacy: [facility] #[id number] Adult 2019-0 Yes 81 mg = 1 Memoria Aspirin 81 6-21 tab, CHEW, l mg oral 20:18: Daily, # Ajay n tablet, 00 30 tab, 3 chewable Refill(s), Pharmacy: [facility] #[id number] Adult [address] Yes 81 mg = 1 Memoria Aspirin 81 6-21 tab, CHEW, l mg oral 20:18: Daily, # Ajay n tablet, 00 30 tab, 3 chewable Refill(s), [id number] Adult [address] Yes 81 mg = 1 Memoria Aspirin 81 6-21 tab, CHEW, l mg oral 20:18: Daily, # Ajay n tablet, 00 30 tab, 3 chewable Refill(s), [id number] Adult 2019-0 Yes 81 mg = 1 Memoria Aspirin 81 6-21 tab, CHEW, l mg oral 20:18: Daily, # Ajay n tablet, 00 30 tab, 3 chewable Refill(s), [id number] Adult 2019- Yes 81 mg = 1 Memoria Aspirin 81 6-21 tab, CHEW, l mg oral 20:18: Daily, # Ajay n tablet, 00 30 tab, 3 chewable Refill(s), [id number] Adult 2019 Yes 81 mg = 1 Memoria Aspirin 81 6-21 tab, CHEW, l mg oral 20:18: Daily, # Ajay n tablet, 00 30 tab, 3 chewable Refill(s), [id number] Adult 2019 Yes 81 mg = 1 Memoria Aspirin 81 6-21 tab, CHEW, l mg oral 20:18: Daily, # Ajay n tablet, 00 30 tab, 3 chewable Refill(s), [id number] Adult 2019 Yes 81 mg = 1 Memoria Aspirin 81 6-21 tab, CHEW, l mg oral 20:18: Daily, # Ajay n tablet, 00 30 tab, 3 chewable Refill(s), [id number] Adult 2019-0 Yes 81 mg = 1 Memoria Aspirin 81 6-21 tab, CHEW, l mg oral 20:18: Daily, # Ajay n tablet, 00 30 tab, 3 chewable Refill(s), Pharmacy: [facility] #[id number] levothyroxi Yes 125 Memori a ne [...] (0.125 mg) 20:29: = 1 tab, Her viory oral tablet 00 PO, Daily, # 30 [...] PO, l Capsule 20:29: BID, # 90 Jsesie nn 00 cap, 1 Refill(s) levothyroxi 2019-0 [...] PO, l tablet, 20:06: Daily, # Ajay gorman extended 00 30 tab, 0 release Refill(s) [...] Raul 00 30 tab, 0 Refill(s) donepezil 0 Yes 10 mg = 1 Mem oria 10 mg oral 5-24 tab, PO, l tablet 20:06: Daily, # Raul 00 30 tab, 0 Refill(s) metoprolol 2019-0 [...] 0.025 MG / 20:06: for loose He rmbernie Diphenoxyla 00 stool, 0 te Refill(s) Hydrochlori de 2.5 MG Oral Tablet [Lomotil] lovastatin Yes 20 mg = 1 Me moria 20 mg oral 5-24 tab, PO, l tablet 20:06: Bedtime, # Jessie nn 00 30 tab, 0 Refill(s) rOPINIRole Yes 2 mg = 1 Mem oria 2 mg oral 5-24 tab, PO, l tablet 20:06: BID, 0 [place] 00 Refill(s) lisinopril Yes 40 mg = [...] tab, PO, l tablet 20:06: Daily, # [place] 00 30 tab, 0 Refill(s) ProAir HFA Yes 1 - 2 Memori a 5-24 puffs, PO, l 20:06: Q4H, PRN [place] 00 Wheezing / cough / shortness of [...] 0.025 MG / 20:06: for loose He rmbernie Diphenoxyla 00 stool, 0 te Refill(s) [...] Raul 00 30 tab, 0 Refill(s) donepezil 0 Yes 10 mg = 1 Mem oria 10 mg oral 5-24 tab, PO, l tablet 20:06: Daily, # Raul 00 30 tab, 0 Refill(s) ProAir HFA 2019-0 Yes 1 - 2 Memori a 5-24 puffs, PO, l 20:06: Q4H, PRN [place] 00 Wheezing / cough / shortness of [...] tab, PO, l tablet 20:06: Daily, # [place] 00 90 tab, 0 Refill(s) Atropine 2019-0 [...] tab, PO, l tablet 20:06: BID, 0 [place] 00 Refill(s) lisinopril 2019- Yes 40 mg = 1 Me moria 40 mg oral 5-24 tab, PO, l tablet 20:06: Daily, # [place] 00 30 tab, 0 Refill(s) donepezil 0 Yes 10 mg = 1 Mem oria 10 mg oral 5-24 tab, PO, l tablet 20:06: Daily, # [place] 00 30 tab, 0 Refill(s) ProAir HFA [...] tab, PO, l tablet 20:06: BID, 0 [place] 00 Refill(s) lisinopril 2019 Yes 40 mg = 1 Me moria 40 mg oral 5-24 tab, PO, l tablet 20:06: Daily, # [place] 00 30 tab, 0 Refill(s) donepezil Yes 10 mg = 1 Mem oria 10 mg oral 5-24 tab, PO, l tablet 20:06: Daily, # [place] 00 30 tab, 0 Refill(s) ProAir HFA [...] rmann [Lexapro] 00 30 tab, 0 Refill(s) metoprolol Yes 50 mg = 1 Me moria 50 mg oral 5-24 tab, PO, l tablet, 20:06: Daily, # Ajay n extended 00 30 tab, 0 release Refill(s) omeprazole 2019- Yes 40 mg = 1 Me moria 40 mg oral 5-24 cap, PO, l delayed 20:06: Daily, # Ajay n release 00 30 cap, 0 capsule Refill(s) Escitalopra 2019- Yes 20 mg = [...] Raul 00 90 tab, 0 Refill(s) Atropine 2018-0 [...] tab, PO, l tablet 20:06: BID, 0 [place] 00 Refill(s) lisinopril 20190 Yes 40 mg = 1 Me moria 40 mg oral 5-24 tab, PO, l tablet 20:06: Daily, # Raul 00 30 tab, 0 Refill(s) donepezil 20190 [...] tab, PO, l tablet 20:06: Daily, # [place] 00 90 tab, 0 Refill(s) Atropine 2019-0 [...] nn 00 30 tab, 0 Refill(s) rOPINIRole 2018- Yes 2 mg = 1 Mem oria [...] 5-24 puffs, PO, l 20:06: Q4H, PRN [place] 00 Wheezing / cough / shortness of [...] tab, PO, l tablet 20:06: Daily, # [place] 00 90 tab, 0 Refill(s) Atropine 2019-0 [...] breath, # 1 ea, 0 Refill(s) metoprolol 20190 Yes 50 mg = 1 Me moria [...] tab, PO, l tablet 20:06: Daily, # [place] 00 90 tab, 0 Refill(s) Atropine Yes [...] tab, PO, l tablet 20:06: BID, 0 [place] 00 Refill(s) lisinopril Yes 40 mg = 1 Me moria 40 mg oral 5-24 tab, PO, l tablet 20:06: Daily, # [place] 00 30 tab, 0 Refill(s) donepezil Yes 10 mg = 1 Mem oria 10 mg oral 5-24 tab, PO, l tablet 20:06: Daily, # [place] 00 30 tab, 0 Refill(s) ProAir HFA [...] tab, PO, l tablet 20:06: Daily, # [place] 00 90 tab, 0 Refill(s) Atropine 2019- Yes 2 tab, PO, Mem oria Sulfate 5-24 PRN, PRN l 0.025 MG / 20:06: for loose He rmbernie Diphenoxyla 00 stool, 0 te Refill(s) Hydrochlori de 2.5 MG Oral Tablet [Lomotil] lovastatin Yes 20 mg = 1 Me moria 20 mg oral 5-24 tab, PO, l tablet 20:06: Bedtime, # Jessie nn 00 30 tab, 0 Refill(s) rOPINIRole Yes 2 mg = 1 Mem oria 2 mg oral 5-24 tab, PO, l tablet 20:06: BID, 0 [place] 00 Refill(s) lisinopril Yes 40 mg = 1 Me moria 40 mg oral 5-24 tab, PO, l tablet 20:06: Daily, # Raul 00 30 tab, 0 Refill(s) donepezil Yes 10 mg = 1 Mem [facility]ria 10 mg oral 5-24 tab, PO, l tablet 20:06: Daily, # [place] 00 30 tab, 0 Refill(s) ProAir HFA Yes 1 - 2 Memori a 5-24 puffs, PO, l 20:06: Q4H, PRN [place] 00 Wheezing / cough / shortness of [...] tab, PO, l tablet 20:06: Daily, # [place] 00 90 tab, 0 Refill(s) Atropine 2019-0 Yes 2 tab, PO, Mem oria Sulfate 5-24 PRN, PRN l 0.025 MG / 20:06: for loose He rmbernie Diphenoxyla 00 stool, 0 te Refill(s) Hydrochlori de 2.5 MG Oral Tablet [Lomotil] lovastatin Yes 20 mg = 1 Me moria 20 mg oral 5-24 tab, PO, l tablet 20:06: Bedtime, # Jessie nn 00 30 tab, 0 Refill(s) rOPINIRole 2019- Yes 2 mg = 1 Mem oria 2 mg oral 5-24 tab, PO, l tablet 20:06: BID, 0 [place] 00 Refill(s) lisinopril Yes 40 mg = 1 Me moria 40 mg oral 5-24 tab, PO, l tablet 20:06: Daily, # [place] 00 30 tab, 0 Refill(s) donepezil Yes 10 mg = 1 Mem [facility]ria 10 mg oral 5-24 tab, PO, l tablet 20:06: Daily, # [place] 00 30 tab, 0 Refill(s) ProAir HFA [...] tab, PO, l tablet 20:06: Daily, # [place] 00 90 tab, 0 Refill(s) Atropine 2019-0 Yes 2 tab, PO, Mem oria Sulfate 5-24 PRN, PRN l 0.025 MG / 20:06: for loose He rmbernie Diphenoxyla 00 stool, 0 te Refill(s) [...] tab, PO, l tablet 20:06: Daily, # [place] 00 30 tab, 0 Refill(s) ProAir HFA [...] tab, PO, l tablet 20:06: Daily, # [place] 00 90 tab, 0 Refill(s) Atropine 2019-0 [...] tab, PO, l tablet 20:06: BID, 0 [place] 00 Refill(s) lisinopril 2019- Yes 40 mg [...] 00 30 cap, 0 capsule Refill(s) amLODIPine 2018- Yes 5 mg = 1 Mem oria [...] tab, PO, l tablet 20:06: Daily, # [place] 00 30 tab, 0 Refill(s) donepezil 2019-0 Yes 10 mg = 1 Mem o[facility] 10 mg oral 5-24 tab, PO, l tablet 20:06: Daily, # [place] 00 30 tab, 0 Refill(s) ProAir HFA 2019-0 Yes 1 - 2 Memori a 5-24 puffs, PO, l 20:06: Q4H, PRN [place] 00 Wheezing / cough / shortness of breath, # 1 ea, 0 Ref[facility](s) [facility]30 mg 00:00: [place] tablet 00 [facility] acetaminoph 2017-10 Yes [facility] en-codeine 1-18 ity of 300-30 mg 00:00: [place] tablet 00 [facility] acetaminoph 2017-10 2020- No Unive rs en-codeine 1-18 -28 ity of 300-30 mg 00:00: 00:00 [place] tablet 00 :00 [facility] lisinopril Yes 40mg Take 40 mg U nivers (PRINIVIL,Z 3-07 by mouth ity of ESTRIL) 40 17:04: daily. [place] mg tablet 36 [facility] escitalopra Yes 20mg Take 20 mg Univers [...] mouth ity of mg tablet 17:04: daily. [place] [facility] lovastatin [id number] Yes 20mg [...] mouth ity of mg tablet 17:04: daily. [place] [id number] [facility] lovastatin 2017-0 Yes 20mg Take 20 mg U nivers (MEVACOR) 3-07 by mouth ity of 20 mg 17:04: daily. [place] tablet 36 [facility] lisinopril 2017-0 Yes 40mg Take 40 mg U nivers (PRINIVIL,Z 3-07 by mouth ity of ESTRIL) 40 11:04: daily. [place] mg tablet 36 [facility] escitalopra 2017-0 [...] mouth ity of XL (TOPROL 11:04: daily. [place] XL) 50 mg 36 Medical 24 hr Branch tablet rOPINIRole 2017-0 Yes 2mg Take 2 mg Un martha (REQUIP) 2 3-07 by mouth 2 ity of mg tablet 11:04: (two) [place] 36 times Medical daily. Branch levothyroxi 2017- Yes 125ug Take 125 U nivers ne [...] mouth ity of mg tablet 11:04: daily. [place] [id number] Medical Branch lovastatin 0 Yes 20mg Take [...] mouth ity of XL (TOPROL 11:04: daily. [place] XL) 50 mg 36 Medical [...] mouth ity of 10 mg 11:04: daily. [place] tablet Medical Branch amLODIPine Yes 5mg Take 5 mg Un martha (NORVASC) 5 3-07 by mouth ity of mg tablet 11:04: daily. [place] [id number] Medical Branch lovastatin Yes 20mg Take 20 mg U nivers (MEVACOR) 3-07 by mouth ity of 20 mg 11:04: daily. [place] [address] Medical Branch carvedilol carvedilol No carvedilol [facility]oted 6.25 mg [...] A DAY A DAY TWICE A DAY Vital Signs Vital Name Observation Time Observation Value Comments Source Systolic blood 2022-08-05 20:00:00 122 mm[Hg] Univer sity of [facility] Diastolic blood 2022-08-05 20:00:00 77 mm[Hg] [facility] 2022-08-05 20:00:00 50 /min [facility] ty [facility] Respiratory rate 2022-08-05 20:00:00 18 /min [facility] Oxygen saturation in 2022-08-05 20:00:00 94 /min [facility] Arterial blood by [facility] Pulse oximetry Branch Body temperature 2022-08-05 17:24:00 36 Tracee [facility] Body height 2022-08-05 17:24:00 149.9 cm [facility] Body weight 2022-08-05 17:24:00 83.915 kg [facility] BMI 2022-08-05 17:24:00 37.37 kg/m2 [facility] height 2022-07-27 13:15:00 59 [in_i] Common S pirit - [facility] weight 2022-07-27 13:15:00 188.2 [lb_av] [facility] temperature 2022-07-27 13:15:00 97.6 [degF] [facility] bmi 2022-07-27 13:15:00 38.01 kg/m2 Common [facility] blood pressure 2022-07-27 13:15:00 125 mm[Hg] [facility] blood pressure 2022-07-27 13:15:00 82 mm[Hg] [facility] diastolic [facility] height 2022-06-15 13:30:00 59 [in_i] Common S [facility] weight 2022-06-15 13:30:00 193 [lb_av] Common [facility] temperature 2022-06-15 13:30:00 98.1 [degF] Common S pirit [facility] bmi 2022-06-15 13:30:00 38.98 kg/m2 Common S pirit [facility] blood pressure 2022-06-15 13:30:00 128 mm[Hg] [facility] - systolic [facility] blood pressure 2022-06-15 13:30:00 76 mm[Hg] [facility] diastolic [facility] height 2021-10-17 14:30:00 59 [in_i] [facility] weight 2021-10-17 14:30:00 220 [lb_av] [facility] temperature 2021-10-17 14:30:00 97.9 [degF] Common S pirit - [facility] bmi 2021-10-17 14:30:00 44.43 kg/m2 Common S pirit - [facility] blood pressure 2021-10-17 14:30:00 126 mm[Hg] [facility] blood pressure 2021-10-17 14:30:00 74 mm[Hg] [facility] Systolic blood 2020-06-28 19:30:00 180 mm[Hg] Univer sity of pressure [facility] Diastolic blood 2020-06-28 19:30:00 82 mm[Hg] Unive rsity of pressure [facility] Heart rate 2020-06-28 19:30:00 61 /min [facility] [place] [facility] [place] Respiratory rate 2020-06-28 19:13:00 17 /min Univ ers[facility] [place] [facility] Oxygen saturation in 2020-06-28 19:13:00 96 /min University of Arterial blood by [facility] Pulse oximetry Branch Body temperature 2020-06-28 16:54:00 36.33 Tracee Univ ersity [facility] [place] [facility] Body weight 2020-06-28 16:54:00 95.255 kg [facility] [place] [facility] BMI 2020-06-28 16:54:00 42.41 kg/m2 [facility] [place] [facility] Systolic blood 2020-06-28 19:30:00 180 mm[Hg] Univer sity of pressure [place] [facility] Diastolic blood 2020-06-28 19:30:00 82 mm[Hg] Unive rsity of pressure [facility] Heart rate 2020-06-28 19:30:00 61 /min [facility] [place] [facility] Respiratory rate 2020-06-28 19:13:00 17 /min Univ ers[facility] [place] [facility] Oxygen saturation in 2020-06-28 19:13:00 96 /min University of Arterial blood by [facility] Pulse oximetry Branch Body temperature 2020-06-28 16:54:00 36.33 Tracee Univ ers[facility] [place] [facility] Body weight 2020-06-28 16:54:00 95.255 kg [facility] [place] [facility] BMI 2020-06-28 16:54:00 42.41 kg/m2 [facility] [place] [facility] Systolic blood 2020-02-19 19:23:00 160 mm[Hg] Univer sity of pressure [place] [facility] Diastolic blood 2020-02-19 19:23:00 84 mm[Hg] Unive rsity of pressure [place] [facility] Heart rate 2020-02-19 19:23:00 63 [...] 96 /min University of Arterial blood by [place] [facility] Pulse oximetry Branch Systolic blood 2020-02-19 [...] 96 /min University of Arterial blood by [place] Pulse oximetry Branch Systolic blood 2019-12-10 [...] 98 /min University of Arterial blood by [facility] Pulse oximetry Branch Body temperature 2019-12-10 02:51:13 36.39 Tracee [facility] ersity of [place] [facility] Body height 2019-12-10 02:28:00 162.6 cm [facility] [place] [facility] Body weight 2019-12-10 02:28:00 104.327 kg [facility] [place] [facility] BMI 2019-12-10 02:28:00 39.48 kg/m2 [facility] [place] [facility] Systolic blood 2019-12-10 04:00:00 202 mm[Hg] Univer sity of pressure [place] [facility] Diastolic blood 2019-12-10 04:00:00 92 mm[Hg] Unive rsity of pressure [place] [facility] Heart rate 2019-12-10 04:00:00 75 /min [facility] [place] [facility] Respiratory rate 2019-12-10 04:00:00 18 /min [facility] ersity of [place] [facility] Oxygen saturation in 2019-12-10 04:00:00 98 /min University of Arterial blood by [facility] Pulse oximetry Branch Body temperature 2019-12-10 02:51:13 36.39 Tracee [facility] ersity of [place] [facility] Body height 2019-12-10 02:28:00 162.6 cm [facility] [place] [facility] Body weight 2019-12-10 02:28:00 104.327 kg [facility] [place] [facility] BMI 2019-12-10 02:28:00 39.48 kg/m2 [facility] [place] [facility] Heart Rate 2022-11-29 19:18:58 [facility] Systolic (mm Hg) 2022-11-29 19:18:48 Jose Francisco rial [place] Diastolic (mm Hg) 2022-11-29 19:18:48 Mem orial [place] Heart Rate 2022-11-29 19:18:48 [facility] [place] Temperature Oral (F) 2022-11-29 19:18:21 98.2 F [facility] Heart Rate 2022-11-29 13:36:55 [facility] [place] Systolic (mm Hg) 2022-11-29 13:36:27 Jose Francisco rial [place] Diastolic (mm Hg) 2022-11-29 13:36:27 Mem o[facility] Systolic (mm Hg) 2022-11-29 13:14:00 Jose Francisco rial [facility] Diastolic (mm Hg) 2022-11-29 13:14:00 Mem orial [place] Respitory Rate 2022-11-29 10:05:34 Memori al [place] Temperature Oral (F) 2022-11-29 10:04:49 98.4 F [facility] Respitory Rate 2022-11-29 05:37:05 [facility] Temperature Oral (F) 2022-11-29 05:36:29 97.7 F [facility] Temperature Oral (F) 2022-11-29 02:00:00 98 F [facility] Respitory Rate 2022-11-28 20:51:03 [facility] Height 2022-11-28 19:03:00 4 [ft_i] [facility] Weight 2022-11-28 19:03:00 [facility] Height 2022-11-27 14:13:00 149.86 cm [facility] [place] Weight 2022-11-27 14:13:00 [facility] [place] BMI Calculated 2022-11-27 14:13:00 Mem[facility] [place] Height 2022-11-27 05:50:00 149.86 cm [facility] BMI Calculated 2022-11-27 05:50:00 [facility] Weight 2022-11-27 05:50:00 [facility] [place] Systolic (mm Hg) 2022-11-23 01:23:00 Jose Francisco rial [facility] Diastolic (mm Hg) 2022-11-23 01:23:00 Mem orial [place] Respitory Rate 2022-11-23 01:23:00 [facility] Respitory Rate 2022-11-22 22:30:00 [facility] Systolic (mm Hg) 2022-11-22 22:30:00 Jose Francisco rial [place] Diastolic (mm Hg) 2022-11-22 22:30:00 Mem orial [place] Respitory Rate 2022-11-22 21:30:00 Memori al [place] Systolic (mm Hg) 2022-11-22 21:30:00 Jose Francisco rial [facility] Diastolic (mm Hg) 2022-11-22 21:30:00 Mem orial [place] Temperature Oral (F) 2022-11-22 02:00:00 98.2 F [facility] Temperature Oral (F) 2022-11-21 22:54:00 97.7 F [facility] [place] Temperature Oral (F) 2022-11-21 16:07:00 98.2 F [facility] [place] Height 2022-11-21 10:11:00 149.86 cm [facility] BMI Calculated 2022-11-21 10:11:00 [facility] Weight 2022-11-21 10:11:00 [facility] Heart Rate 2022-11-21 10:11:00 [facility] [place] Systolic (mm Hg) 2021-11-02 20:14:00 Jose Francisco rial [facility] Diastolic (mm Hg) 2021-11-02 20:14:00 Mem o[facility] Heart Rate 2021-11-02 20:14:00 [facility] Respitory Rate 2021-11-02 20:14:00 [facility] Height 2021-11-02 20:14:00 149.86 cm [facility] [place] Weight 2021-11-02 20:14:00 [facility] BMI Calculated 2021-11-02 20:14:00 [facility] Systolic (mm Hg) 2020-12-24 18:59:00 Jose Francisco rial [facility] Diastolic (mm Hg) 2020-12-24 18:59:00 Mem orial [place] Heart Rate 2020-12-24 18:59:00 [facility] Respitory Rate 2020-12-24 18:59:00 [facility] Height 2020-12-24 18:59:00 149.86 cm [facility] Weight 2020-12-24 18:59:00 [facility] BMI Calculated 2020-12-24 18:59:00 [facility] Systolic (mm Hg) 2020-09-06 20:47:00 Jose Francisco rial [place] Diastolic (mm Hg) 2020-09-06 20:47:00 Mem orial [...] (mm Hg) 2020-09-06 14:09:00 Jose Francisco rial [place] Diastolic (mm Hg) 2020-09-06 14:09:00 Mem o[facility] Temperature Oral (F) 2020-09-06 10:00:00 98.1 F [facility] [place] Heart Rate 2020-09-06 10:00:00 [facility] Respitory Rate 2020-09-06 10:00:00 Memori al [place] Temperature Oral (F) 2020-09-06 06:30:00 97.5 F [facility] Heart Rate 2020-09-06 06:30:00 [facility] [place] Respitory Rate 2020-09-06 06:30:00 Memori [facility] [place] Systolic (mm Hg) 2020-09-06 06:30:00 Jose Francisco rial [facility] Diastolic (mm Hg) 2020-09-06 06:30:00 Mem orial [place] Temperature Oral (F) 2020-09-06 02:45:00 97.8 F [facility] [place] Heart Rate 2020-09-06 02:45:00 [facility] Respitory Rate 2020-09-06 02:45:00 [facility] Systolic (mm Hg) 2020-09-06 02:45:00 Jose Francisco rial [facility] Diastolic (mm Hg) 2020-09-06 02:45:00 Mem [facility] Temperature Oral (F) 2020-09-05 22:00:00 97 F [facility] Heart Rate 2020-09-05 22:00:00 [facility] [place] Respitory Rate 2020-09-05 22:00:00 Mem[facility] Systolic (mm Hg) 2020-09-05 22:00:00 Jose Francisco rial [place] Diastolic (mm Hg) 2020-09-05 22:00:00 Mem o[facility] Height 2020-09-05 02:46:00 124.46 cm [facility] [place] BMI Calculated 2020-09-05 02:46:00 [facility] Weight 2020-09-05 02:46:00 [facility] Systolic (mm Hg) 2020-05-25 18:41:00 Jose Francisco rial [place] Diastolic (mm Hg) 2020-05-25 18:41:00 Mem o[facility] Heart Rate 2020-05-25 18:41:00 [facility] [place] Respitory Rate 2020-05-25 18:41:00 Memori al [place] Temperature Oral (F) 2020-05-25 18:41:00 98.6 F [facility] [place] Height 2020-05-25 18:41:00 149.86 cm [facility] [place] Weight 2020-05-25 18:41:00 [facility] [place] BMI Calculated 2020-05-25 18:41:00 Memori al [place] Systolic (mm Hg) 2020-03-24 14:12:00 Jose Francisco rial [facility] Diastolic (mm Hg) 2020-03-24 14:12:00 Mem orial [place] Heart Rate 2020-03-24 14:12:00 [facility] Height 2020-03-24 14:12:00 149.86 cm [facility] [place] Weight 2020-03-24 14:12:00 [facility] BMI Calculated 2020-03-24 14:12:00 [facility] Systolic (mm Hg) 2019-07-24 19:29:00 Jose Francisco rial [place] Diastolic (mm Hg) 2019-07-24 19:29:00 Mem o[facility] Heart Rate 2019-07-24 19:29:00 [facility] [place] Respitory Rate 2019-07-24 19:29:00 Memori al [place] Height 2019-07-24 19:29:00 149.86 cm [facility] [place] Weight 2019-07-24 19:29:00 [facility] BMI Calculated 2019-07-24 19:29:00 Memori al [place] Systolic (mm Hg) 2019-05-21 19:25:00 Jose Francisco rial [place] Diastolic (mm Hg) 2019-05-21 19:25:00 Mem orial [place] Heart Rate 2019-05-21 19:25:00 [facility] Respitory Rate 2019-05-21 19:25:00 Memori al [facility] Height 2019-05-21 19:25:00 149.86 cm [facility] Weight 2019-05-21 19:25:00 [facility] [place] BMI Calculated 2019-05-21 19:25:00 Memori al [facility] Height 2019-03-21 19:45:00 147.32 cm [facility] Weight 2019-03-21 19:45:00 [facility] BMI Calculated 2019-03-21 19:45:00 Memori [facility] Respitory Rate 2019-03-21 19:45:00 [facility] Heart Rate 2019-03-21 19:45:00 [facility] [place] Systolic (mm Hg) 2019-03-21 19:45:00 Jose Francisco rial [facility] Diastolic (mm Hg) 2019-03-21 19:45:00 Mem orial [facility] Height 2019-02-21 20:01:00 149.86 cm [facility] [place] Weight 2019-02-21 20:01:00 [facility] BMI Calculated 2019-02-21 20:01:00 Memori al [place] Respitory Rate 2019-02-21 20:01:00 [facility] Heart Rate 2019-02-21 20:01:00 [facility] Systolic (mm Hg) 2019-02-21 20:01:00 Jose Francisco rial [facility] Diastolic (mm Hg) 2019-02-21 20:01:00 Mem o[facility] Procedures Procedure Date / Time Performing Clinician Source Performed AUTHORIZATION FOR 2022-11-22 06:01:00 Doctor Unassigned, No Univ [facility] RELEASE OF PHI Name Medical Branch XR CHEST 1 VW 2022-08-05 17:51:10 Carly Sinclair [facility] TROPONIN I 2022-08-05 17:31:00 Carly Sinclair [facility] COMP. METABOLIC PANEL 2022-08-05 17:31:00 Carly Sinclair [facility] ([id number]) [facility] CBC WITH DIFF 2022-08-05 17:31:00 Carly Sinclair [facility] RAPID INFLUENZA A/B 2022-08-05 17:31:00 Carly Sinclair [facility] N-TERMINAL PRO-BNP 2022-08-05 17:31:00 [facility] COVID-19 (ID NOW RAPID 2022-08-05 17:31:00 Carly Sinclair [facility] [place] [facility] Medical Branch CONSENT/REFUSAL FOR 2022-08-05 17:11:04 Doctor Unassigned, No Un [facility] [place] DIAGNOSIS AND TREATMENT Name Medical Branch XR FOREARM 2 VW RIGHT 2020-06-28 17:49:01 Sariah Miller [facility] [place] XR SHOULDER 2+ VW RIGHT 2020-06-28 17:49:01 Sariah Miller [facility] CONSENT/REFUSAL FOR 2020-02-19 18:58:01 Doctor Unassigned, No Un [facility] [place] [facility] Name Medical Branch XR TIBIA FIBULA 2 VW 2019-12-10 03:20:47 Timi Aguirre [facility] [place] [facility] Branch Encounters Start End Encounter Admission Attending Care Care Encounter Source Date/Time Date/Time Type Type Clinicians Facility Department ID 2023-04-30 Outpatient STLMLC STLMLC [id number] Common 12:50:00 [id number] [facility] 2023-03-13 Outpatient [facility] [id number] [place] 09:56:10 [id number] [facility] 2022-11-28 Outpatient [facility] [id number] [place] 08:22:57 [id number] [facility] 2022-11-23 Outpatient [facility] [id number] [place] 15:23:09 [id number] [facility] 2022-11-13 Outpatient STLMLC STLMLC [id number] Common 13:04:00 [id number] [facility] 2022-11-09 Outpatient STLMLC STLMLC [id number] Common 12:35:00 [id number] [facility] 2022-07-26 Outpatient STLMLC STLMLC [id number] Common 16:10:00 [id number] [facility] 2022-06-16 Outpatient STLMLC STLMLC [id number] Common 09:53:02 [id number] [facility] 2021-10-26 Outpatient STLMLC STLMLC [id number] Common 13:00:46 [id number] [facility] 2021-10-26 Outpatient STLMLC STLMLC [id number] Common 12:25:20 [id number] [facility] 2021-10-26 Outpatient STLMLC STLMLC [id number] Common 12:16:59 [id number] [facility] 2021-10-05 Inpatient KAYCEE AndersonWU ADMI [id number] [facility] 11:00:00 Anurag Ferguson [facility] 2021-07-29 Emergency [facility] [id number] Univers 19:46:17 ity [facility] 2021-07-28 Emergency [facility] [id number] Univers 21:53:33 [facility] 2023-06-06 2023-06-06 Outpatient GC_GCBZW_Ka PRIV PRIV [id number] [facility] 00:00:00 00:00:00 diyala_S [id number] Medic al 2023-05-15 2023-05-15 Palliative Glenys 2.16.840. 2.16.840.1. C LACXSUHJY [facility] 18:00:00 19:00:00 Care CHUCK BONER/ [place] [id number]. [id number]. [facility] Medical Follow Up [id number] 2023-04-30 2023-04-30 Outpatient GC_GCBZW_Ka PRIV PRIV [id number] [facility] 00:00:00 00:00:00 diyala_S [id number] Medic al 2023-04-30 2023-04-30 Outpatient GC_GCBZW_Ka PRIV PRIV [id number] [facility] 00:00:00 00:00:00 diyala_S [id number] Medic al 2023-04-30 2023-04-30 Outpatient GC_GCBZW_Ka PRIV PRIV [id number] [facility] 00:00:00 00:00:00 diyala_S [id number] Medic al 2023-04-25 2023-04-25 Outpatient GC_GCBZW_Ka PRIV PRIV [id number] [facility] 00:00:00 00:00:00 diyala_S [id number] Medic al 2023-04-25 2023-04-25 Outpatient GC_GCBZW_Ka PRIV PRIV [id number] [facility] 00:00:00 00:00:00 diyala_S [id number] Medic al 2023-04-25 2023-04-25 Outpatient GC_GCBZW_Ka PRIV PRIV [id number] [facility] 00:00:00 00:00:00 diyala_S [id number] Medic al 2023-04-18 2023-04-18 Outpatient GC_GCBZW_Ka PRIV PRIV [id number] [facility] 00:00:00 00:00:00 diyala_S [id number] Medic al 2023-03-14 2023-03-14 Care Glenys 2.16.840. 2.16.840.1. CLAC [id number] [facility] 21:00:00 21:15:00 Coordinati Foster [id number]. [id number]. R6K Medical on Non 4.6.07363 [id number] [place] [id number] 2023-02-22 2023-02-22 Palliative Glenys 2.16.840. 2.16.840.1. C [id number] [facility] 17:30:00 18:30:00 Care Foster 1.130125. 770721.4.6. GFE Medical Follow Up [id number] 2023-02-14 2023-02-14 Outpatient NIC Sanderson, JAMIE IRENA [id number] [facility] 08:00:00 09:00:00 Anurag Ma [facility] 2023-02-08 2023-02-08 Outpatient Deavers_C DMG [facility] [id number] Dev[facility] 00:00:00 00:00:00 0511 Medica l Group 2023-02-08 2023-02-08 Outpatient Deavers_C DMG DMG [id number] [facility] 00:00:00 00:00:00 0626 Medica l Group 2023-01-31 2023-01-31 ESTRELLA Cuellar 2.16.840. 2.16.840.1. CLA [id number] [facility] 19:00:00 20:00:00 Deavers [id number]. 705394.4.6. WF9 Medical [id number] 2023-01-22 2023-01-22 Out[place] [id number] -2022 [facility] 00:00:00 00:00:00 0424 Medica l Group 2023-01-22 2023-01-22 Outpatient Deavers_C DMG [facility] [id number] -[id number] [facility] 00:00:00 00:00:00 0506 Medica l Group 2022-11-27 2022-11-29 Inpatient [facility] [id number] Memoria 05:48:00 21:37:[address] 2022-11-27 2022-11-29 Inpatient [facility] [id number] Memoria 05:48:00 21:37:[address] 2022-11-28 2022-11-29 Inpatient E AGUSTIN, [id number] 15:38:00 15:37:00 [facility] 2022-11-26 2022-11-29 Outpatient Agustin [facility] [id number] 23:48:00 15:37:00 [place] [id number] 2022-11-26 2022-11-29 Outpatient Agustin [facility] [id number] 23:48:00 15:37:00 [place] [id number] 2022-11-21 2022-11-22 Observatio [facility] [id number] Memoria 10:09:00 20:23:00 [place] 00 [facility] 2022-11-21 2022-11-22 Observatio [facility] [id number] Memoria 10:09:00 20:23:00 n [place] 00 [facility] 2022-11-21 2022-11-22 Outpatient E CESILIA [facility] [id number] [facility] 08:46:00 14:23:00 PEREZ 2022-11-21 2022-11-22 Outpatient Cesilia [facility] [id number] 04:09:00 14:23:00 Perez Seiji 00 2022-11-21 2022-11-22 Outpatient Cesilia [facility] [id number] 04:09:00 14:23:00 Perez Seiji 00 2022-11-222022-11-22 Orders Doctor STEFANO 1.2.840.114 [id number] Univers 00:00:00 00:00:00 Only Unassigned, TRU [id number] [facility] 4.2.7.2.686 Carlos [id number] [facility] 009 Branch 2022-11-01 2022-11-01 (TEL) STLMLC STLMLC [id number] Co mmon 00:00:00 00:00:00 [facility] 2022-09-29 2022-09-29 Inpatient NIC Sanderson, KAYCEEWU SUGL [id number] [facility] 11:00:00 11:00:00 Anurag 98 [facility] 2022-09-13 2022-09-13 CAV Allegra 2.16.840. 2.16.840.1. CLAC [id number] [facility] 20:30:00 21:00:00 Revisit: Valentín [id number]. [id number]. 2H3 Medical Gap 4.6.83808 [id number] Closure & [id number] Clinical Check-in 2022-09-05 2022-09-05 (TEL) STLC STLC [id number] Co mmon 00:00:00 00:00:00 [facility] 2022-08-05 2022-08-05 [facility] [id number] Univers 12:20:00 15:34:00 CARLY dominique [facility] 2022-08-05 2022-08-05 Emergency [facility] 1.2.840.114 [id number] Univers 12:20:00 15:34:00 Carly AMIN [id number] ity [facility] 4.2.7.2.686 [facility] [id number] [facility] 084 Branch 2022-08-03 2022-08-03 [place] [id number] -2021 [facility] 00:00:00 00:00:00 1103 Medica l Group 2022-07-27 2022-07-27 OFFICE STLMLC STLC [id number] Co mmon 00:00:00 00:00:00 VISIT [facility] LEVEL 4 [facility] 2022-06-15 2022-06-15 OFFICE STLMLC STLMLC [id number] Co mmon 00:00:00 00:00:00 VISIT [facility] PT - CHI LEVEL 4 [facility] 2022-06-12 2022-06-12 ESTRELLA Dinh 2.16.840. 2.16.840.1. CLAC [id number] [facility] 20:00:00 21:00:00 Valentín [id number]. [id number] [place] [address] [id number] 2022-04-28 2022-04-28 Ambulatory nullFlavo MNA [id number] Memoria 19:00:00 19:00:00 Pre-Reg r Neurology 14 l Lana Cunhaann 2022-04-28 2022-04-28 Ambulatory nullFlavo MNA [id number] Memoria 19:00:00 19:00:00 Pre-Reg r Neurology 14 l Lana Carter 2022-04-28 2022-04-28 Outpatient MHIE FRANCESCO [id number] [facility] 14:00:00 14:00:00 14 lavelle Raul 2022-04-28 2022-04-28 Outpatient YURIDIA Garcia [id number] 14:00:00 14:00:00 Jeffrey Jaziel Hollis 2022-04-14 2022-04-14 Outpatient Canales_M DMG DMG [id number] -2021 [facility] 07:15:00 07:15:00 0715 Medica l Group 2021-12-15 2021-12-15 (TEL) STLMLC STLMLC [id number] Co mmon 00:00:00 00:00:00 [facility] 2021-12-08 2021-12-08 (TEL) STLMLC STLMLC [id number] Co mmon 00:00:00 00:00:00 [facility] 2021-11-29 2021-11-29 OL DIG E/M STLMLC STLMLC [id number] Common 00:00:00 00:00:00 SVC 5-[address] [facility] 2021-11-21 2021-11-21 (TEL) STLMLC STLMLC [id number] Co mmon 00:00:00 00:00:00 Spirit - [facility] 2021-11-02 2021-11-03 Outpatient nullFlavo MNA [id number] Memoria 19:30:00 05:59:59 r Neurology 13 l Lana Carter 2021-11-02 2021-11-03 Outpatient nullFlavo MNA [id number] Memoria 19:30:00 05:59:59 r Neurology 13 l Lana Carter 2021-11-02 2021-11-02 Outpatient GOSIA GarciaSCHANJEL [facility] 139 [id number] 13:30:00 23:59:59 Jeffrey Marcie Shafer 2021-11-02 2021-11-02 Ambulatory nullFlavo MNA [id number] Memoria 19:00:00 19:00:00 Pre-Reg r Neurology 12 lavelle Cunhaann 2021-11-02 2021-11-02 Ambulatory nullFlavo MNA [id number] Memoria 19:00:00 19:00:00 Pre-Reg r Neurology 12 l Lana Carter 2021-11-02 2021-11-02 Outpatient MHIE MHIE [id number] Memoria 13:30:00 13:30:00 13 lavelle Carter 2021-11-02 2021-11-02 Outpatient MHIE MHIE [id number] Memoria 13:00:00 13:00:00 12 lavelle Carter 2021-11-02 2021-11-02 Outpatient YURIDIA Garcia [facility] [id number] 13:00:00 13:00:00 Jeffrey Ventura Shafer 2021-10-26 2021-10-26 (TEL) STLMLC STLMLC [id number] Co mmon 00:00:00 00:00:00 Spirit - CHI [facility] 2021-10-17 2021-10-17 OFFICE STLMLC STLMLC [id number] Co mmon 00:00:00 00:00:00 VISIT Spirit ESTAB PT - CHI LEVEL 4 [facility] 2021-10-03 2021-10-03 ESTRELLA Dinh [id number]. [facility] [id number] Devoted 20:00:00 21:30:00 [facility] [id number] RZY [facility] [id number] 2021-08-29 2021-08-29 Outpatient Canales_M DMG DMG [id number] Devoted 12:42:00 12:42:00 1129 Medica l Group 2021-06-28 2021-06-28 Ambulatory nullFlavo MNA [id number] Memoria 19:00:00 19:00:00 Pre-Reg r Neurology 11 l Lana Carter 2021-06-28 2021-06-28 Ambulatory nullFlavo MNA [id number] Memoria 19:00:00 19:00:00 Pre-Reg r Neurology 11 l Lana Carter 2021-06-28 2021-06-28 Outpatient PRUDENCIOIE FRANCESCO [id number] Memoria 14:00:00 14:00:00 11 l Raul 2021-06-28 2021-06-28 Outpatient YURIDIA Garcia [facility] [id number] 14:00:00 14:00:00 Jeffrey Rob Shafer 2021-05-16 2021-05-16 Outpatient STLMLC STLMLC [id number] Common 00:00:00 00:00:00 [facility] 2021-05-10 2021-05-10 Outpatient STLMLC STLMLC [id number] Common 00:00:00 00:00:00 [facility] 2021-04-12 2021-04-12 Outpatient STLMLC STLMLC [id number] Common 00:00:00 00:00:00 [facility] 2021-03-28 2021-03-28 Outpatient Olivia-Mbayo VFP VFP [id number] [facility] 05:32:00 05:32:00 _A_AH 33050 Family Practic e 2021-03-28 2021-03-28 (TEL) STLMLC STLMLC [id number] Co mmon 00:00:00 00:00:00 [facility] 2021-03-07 2021-03-07 Outpatient STLMLC STLMLC [id number] Common 00:00:00 00:00:00 [facility] 2021-02-08 2021-02-08 Outpatient STLMLC STLMLC [id number] Common 00:00:00 00:00:00 [facility] 2021-01-28 2021-01-30 Outside nullFlavo MNA [id number] Memoria 14:05:24 04:59:59 Medical r Neurology 01 l Records Lana Carter 2021-01-28 2021-01-30 Outside nullFlavo MNA [id number] Memoria 14:05:24 04:59:59 Medical r Neurology 01 l Records Lana Carter 2021-01-28 2021-01-29 Outpatient MHMISCHER MHMISCHER [id number] 09:05:24 23:59:59 2021-01-18 2021-01-18 Outpatient Olivia-Mbayo VFP VF [id number] [facility] 01:43:00 01:43:00 _A_AH 07205 Family Practic e 2021-01-14 2021-01-14 Outpatient Canales_M DMG SHIRA [id number] [facility] 05:20:00 05:20:00 0416 Medica l Group 2021-01-14 2021-01-14 Caitlyn BAEZA MA - [id number] D evoted 00:00:00 00:00:00 Radha Butcher l [facility] CHUCK BONER: [id number] [facility] [address], [address], [place] [address] , Ph. 2021-01-14 2021-01-14 Outpatient Jerez, DMG ARYAN [id number] 00:00:00 00:00:00 Caitlyn [id number] Radha [id number] 2021-01-13 2021-01-13 Outpatient Canales_M DMG DMG [id number] [facility] 05:35:00 05:35:00 0415 Medica l Group 2021-01-12 2021-01-12 Outpatient Canales_M DMG DMDimitri [id number] [facility] 04:16:00 04:16:00 0414 Medica l Group 2020-12-24 2020-12-25 Outpatient nullFlavo MNA [id number] Memoria 18:45:00 04:59:59 r Neurology 10 l Lana Carter 2020-12-24 2020-12-25 Outpatient nullFlavo MNA [id number] Memoria 18:45:00 04:59:59 r Neurology 10 l Lana Carter 2020-12-24 2020-12-24 Outpatient YURIDIA Garcia [facility] [id number] 13:45:00 23:59:59 Jeffrey Lupis Shafer 2020-12-24 2020-12-24 Outpatient MHIE MHIE [id number] Memoria 13:45:00 13:45:00 10 lavelel Carter 2020-12-09 2020-12-09 Outpatient STLMLC STLMLC [id number] Common 00:00:00 00:00:00 [facility] 2020-12-09 2020-12-09 Outpatient STLMLC STLMLC [id number] Common 00:00:00 00:00:00 [facility] 2020-11-30 2020-11-30 Outpatient STLMLC STLMLC [id number] Common 00:00:00 00:00:00 [facility] 2020-11-23 2020-11-25 Outside nullFlavo MNA [id number] Memoria 17:49:36 05:59:59 Medical r Neurology 00 l Records Lana Carter 2020-11-23 2020-11-25 Outside nullFlavo MNA [id number] Memoria 17:49:36 05:59:59 Medical r Neurology 00 l Records Lana Carter 2020-11-23 2020-11-24 [facility] [id number] 11:49:36 23:59:59 2020-10-28 2020-10-28 Outpatient STLMLC STLMLC [id number] Common 00:00:00 00:00:00 [facility] 2020-10-25 2020-10-25 Outpatient STLMLC STLMLC [id number] Common 00:00:00 00:00:00 [facility] 2020-10-11 2020-10-11 Ambulatory nullFlavo MNA [id number] Memoria 21:15:00 21:15:00 Pre-Reg r Neurology 09 l Lana Carter 2020-10-11 2020-10-11 Ambulatory nullFlavo MNA [id number] Memoria 21:15:00 21:15:00 Pre-Reg r Neurology 09 l Lana Carter 2020-10-11 2020-10-11 Outpatient MHIE FRANCESCO [id number] Memoria 15:15:00 15:15:00 09 lavelle Carter 2020-10-11 2020-10-11 Outpatient YURIDIA Garcia [facility] [id number] 15:15:00 15:15:00 Jeffrey 09 [place] 2020-09-29 2020-09-29 Outpatient STLMLC STLMLC [id number] Common 00:00:00 00:00:00 [facility] 2020-09-05 2020-09-06 Observatio nullFlavo [facility] [id number] Memoria 02:36:00 21:43:00 n ekta Carter 40 [facility] 2020-09-05 2020-09-06 Observatio nullFlavo [facility] [id number] Memoria 02:36:00 21:43:00 sherif Carter 40 [facility] 2020-09-04 2020-09-06 Outpatient Nae [facility] [id number] 20:36:00 15:43:00 Vincent Alarcon Chu 2020-09-04 2020-09-04 Outpatient Nae [facility] [id number] 20:36:00 20:36:00 Vincent Alarcon Chu 2020-08-24 2020-08-24 Ambulatory nullFlavo MNA [id number] Memoria 19:15:00 19:15:00 Pre-Reg r Neurology 08 l Wirt [place] 2020-08-24 2020-08-24 Ambulatory nullFlavo MNA [id number] Memoria 19:15:00 19:15:00 Pre-Reg r Neurology 08 l Wirt [place] 2020-08-24 2020-08-24 Outpatient MHIE FRANCESCO [id number] Memoria 13:15:00 13:15:00 08 lavelle Arul 2020-08-24 2020-08-24 Outpatient YURIDIA Garcia [facility] [id number] 13:15:00 13:15:00 Jeffrey 08 [facility] 2020-06-28 2020-06-28 Emergency [facility] [id number] 11:51:00 15:02:00 Sariah Amin [id number] [place] 4.2.7.2.686 [place] [id number] [facility] 2020-06-28 2020-06-28 Emergency [facility] [id number] [facility] 11:51:00 15:02:00 Sariah Amin [id number] i ty of [place] 4.2.7.2.686 [facility] [id number] [address] 2020-05-25 2020-05-26 Outpatient nullFlavo MNA [id number] Memoria 18:45:00 04:59:59 r Neurology 07 l [facility] 2020-05-25 2020-05-26 Outpatient nullFlavo MNA [id number] Memoria 18:45:00 04:59:59 r Neurology 07 l [facility] 2020-05-25 2020-05-25 Outpatient GOSIA GarciaSCHANJEL MISCHER [id number] 13:45:00 23:59:59 Jeffrey 07 [facility] 2020-05-25 2020-05-25 Outpatient MHIE MHIE [id number] Memoria 13:45:00 13:45:00 07 l [place] 2020-03-30 2020-03-30 Ambulatory nullFlavo MNA [id number] Memoria 20:15:00 20:15:00 Pre-Reg r Neurology 05 l [place] 2020-03-30 2020-03-30 Ambulatory nullFlavo MNA [id number] Memoria 20:15:00 20:15:00 Pre-Reg r Neurology 05 l [place] 2020-03-30 2020-03-30 Outpatient MHIE MHIE [id number] Memoria 15:15:00 15:15:00 05 l [place] 2020-03-30 2020-03-30 Outpatient OGSIA GarciaSCHER MISCHER [id number] 15:15:00 15:15:00 Jeffrey 05 [facility] 2020-03-24 2020-03-25 Outpatient nullFlavo MNA [id number] Memoria 14:00:00 04:59:59 r Neurology 06 l Lana Carter 2020-03-24 2020-03-25 Outpatient nullFlavo MNA [id number] Memoria 14:00:00 04:59:59 r Neurology 06 l Lana Carter 2020-03-24 2020-03-24 Outpatient Jose [facility] [id number] 09:00:00 23:59:59 Jeffrey 06 [place] 2020-03-24 2020-03-24 Outpatient MHIE IE [id number] Memoria 09:00:00 09:00:00 06 l [place] 2020-02-19 2020-02-19 Emergency [facility], [facility] [id number] 14:18:56 16:04:00 Maria Luisa Amin [id number] [place] 4.2.7.2.6 [place] [id number] [facility] 2020-02-19 2020-02-19 [facility] [id number] [facility] 14:18:56 16:04:00 Maria Luisa Amin [id number] ity [facility] 4.2.7.2.[address] [place] [id number] 2019-12-11 2019-12-11 Outpatient Olivia-Mbayo VFP VF [id number] 06:48:00 06:48:00 _A_AH 71310 Family Practic e 2019-12-11 2019-12-11 Outpatient Olivia-Mbayo VFP VFP [id number] [facility] 06:48:00 06:48:00 _A_AH 37569 Family Practic e 2019-12-09 2019-12-10 Emergency [place], [facility] [id number] 21:28:34 00:05:00 Timi [place] [id number] [place] [address] [place] [address] [id number] [facility] 2019-12-09 2019-12-10 Emergency Aguirre, [facility] [id number] [facility] 21:28:34 00:05:00 Timi [place] 350.1.13.10 i [facility] Miguel 4.2.7.2.686 [facility] [id number] [place] [address] [address] 2019-12-09 2019-12-10 Emergency X TYRONE, [facility] ERT [id number] 21:28:34 00:05:00 TIMI dominique [facility] 2019-11-19 2019-11-19 Outpatient Olivia-Mbayo VFP VF [id number] [facility] 07:16:00 07:16:00 _A_ 12217 Family Practic e 2019-09-16 2019-09-16 Ambulatory nullFlavo MNA [id number] Memoria 21:00:00 21:00:00 Pre-Reg r Neurology 04 l Lana Cunhaann 2019-09-16 2019-09-16 Ambulatory nullFlavo MNA [id number] Memoria 21:00:00 21:00:00 Pre-Reg r Neurology 04 l Wirtalbin Cunhaann 2019-09-16 2019-09-16 Outpatient MHIE MHIE [id number] Memoria 15:00:00 15:00:00 04 lavelle Carter 2019-09-16 2019-09-16 Outpatient Jose MHMISCHER MHMISCHER [id number] 15:00:00 15:00:00 Jeffrey Sonia Shafer 2019-07-24 2019-07-25 Outpatient nullFlavo MNA [id number] Memoria 19:15:00 04:59:59 r Neurology 03 lavelle Wirt Raul 2019-07-24 2019-07-25 Outpatient nullFlavo MNA [id number] Memoria 19:15:00 04:59:59 r Neurology 03 lavelle Wirt Raul 2019-07-24 2019-07-24 Outpatient PRUDENCIO GarciaMISCHER MHMISCHER [id number] 14:15:00 23:59:59 Jeffrey Kings Shafer 2019-07-24 2019-07-24 Outpatient MHIE MHIE [id number] Memoria 14:15:00 14:15:00 03 lavelle Raul 2019-05-21 2019-05-22 Outpatient nullFlavo MNA [id number] Memoria 19:30:00 04:59:59 r Neurology 02 lavelle Wirt Raul 2019-05-21 2019-05-22 Outpatient nullFlavo MNA [id number] Memoria 19:30:00 04:59:59 r Neurology 02 lavelle Schwartz [place] 2019-05-21 2019-05-21 Outpatient PRUDENCIO GarciaCOSCHER MISCHER [id number] 14:30:00 23:59:59 Jeffrey 02 [facility] 2019-05-21 2019-05-21 Outpatient MHIE MHIE [id number] Memoria 14:30:00 14:30:00 02 lavelle [place] 2019-03-21 2019-03-22 Outpatient nullFlavo MNA [id number] Memoria 19:30:00 04:59:59 r Neurology 01 l Wirt [place] 2019-03-21 2019-03-22 Outpatient nullFlavo MNA [id number] Memoria 19:30:00 04:59:59 r Neurology 01 Lana [place] 2019-03-21 2019-03-21 Outpatient PRUDENCIO GarciaCOSCHER MISCHER [id number] 14:30:00 23:59:59 Jeffrey [facility] 2019-03-21 2019-03-21 Outpatient MHIE MHIE [id number] Memoria 14:30:00 14:30:00 01 lavelle [place] 2019-02-21 2019-02-22 Outpatient nullFlavo MNA [id number] Memoria 20:00:00 04:59:59 r Neurology 00 l [facility] 2019-02-21 2019-02-22 Outpatient nullFlavo MNA [id number] Memoria 20:00:00 04:59:59 r Neurology 00 l [facility] 2019-02-21 2019-02-21 Outpatient PRUDENCIO GarciaCOSCHER [facility] [id number] 15:00:00 23:59:59 Jeffrey 00 [place] Results Test Description Test Time Test Comments Results Result Comments Source HEMATOLOGY 2022-11-28 09:49:00 Test Item Value Reference Range Interpretation Comme nts MCHC (test code = MCHC) 32.7 32.0-36.0 [facility]SYW2466-76-94 09:49:00 Test Item Value Reference Range Interpretation Comments RDW (test code = RDW) 14.1 11.5-14.5 [facility] HospitalRgvepkdZTGBPDVOYT9610-91-33 09:49:00 Test Item Value Reference Range Interpretation Comments Platelet (test code = Platelet) 136 133-450 [facility] HospitalRnxkaumAWKEOVOZLH1772-00-89 09:49:00 Test Item Value Reference Range Interpretation Comments MPV (test code = MPV) 7.7 7.4-10.4 [place] [address]-02-28 09:49:00 Test Item Value Reference Range Interpretation Comments Segs (test code = Segs) 49.2 45.0-75.0 [place] 744043-02-28 09:49:00 Test Item Value Reference Range Interpretation Comments Lymphocytes (test code = Lymphocytes) 33.0 20.0-40.0 [place] [address]-02-28 09:49:00 Test Item Value Reference Range Interpretation Comments Monocytes (test code = Monocytes) 10.5 2.0-12.0 [place] [address]-02-28 09:49:00 Test Item Value Reference Range Interpretation Comments Eosinophils (test code = 6.6 See_Comment [A utomated message] The Eosinophils) system which ge nerated this result tra nsmitted reference range : <=4.0. The reference r christiano was not used to int erpret this result as normal/abnormal . [place] 744043-02-28 09:49:00 Test Item Value Reference Range Interpretation Comments Basophils (test code = 0.7 See_Comment [Aut omated message] The Basophils) system which ge nerated this result tra nsmitted reference range : <=1.0. The reference r christiano was not used to int erpret this result as normal/abnormal . [facility] HospitalIapiqecLWVPVFUSHH6885-20-39 09:49:00 Test Item Value Reference Range Interpretation Comments Neutrophils # (test code = Neutrophils 3.0 1.5-8.1 #) [place] 744043-02-28 09:49:00 Test Item Value Reference Range Interpretation Comments Lymphocytes # (test code = Lymphocytes 2.0 1.0-5.5 #) [place] [address]-02-28 09:49:00 Test Item Value Reference Range Interpretation Comments Monocytes # (test code 0.7 See_Comment [Aut omated message] The = Monocytes #) system which generated this result tra nsmitted reference range : <=0.8. The reference r christiano was not used to int erpret this result as normal/abnormal . [place] 744043-02-28 09:49:00 Test Item Value Reference Range Interpretation Comments Eosinophils # (test code 0.4 See_Comment [A utomated message] The = Eosinophils #) system [employer] h generated this result tra nsmitted reference range : <=0.5. The reference r christiano was not used to int erpret this result as normal/abnormal . [facility] HospitalCueguyaMJZSMGQSQR8520-21-38 09:49:00 Test Item Value Reference Range Interpretation Comments WBC (test code = WBC) 6.2 3.7-10.4 [facility] HospitalXhpqlerJTKBCJUQCX4049-68-68 09:49:00 Test Item Value Reference Range Interpretation Comments RBC (test code = RBC) 3.06 4.20-5.40 [facility] HospitalChhiwjgSTBNORJZGA9504-59-69 09:49:00 Test Item Value Reference Range Interpretation Comments Hgb (test code = Hgb) 9.2 12.0-16.0 [facility] HospitalGvxzfxlAUYZAJJWWA5671-36-86 09:49:00 Test Item Value Reference Range Interpretation Comments Hct (test code = Hct) 28.0 36.0-48.0 [facility] HospitalWvyzdlrBBFLROZIKE2188-42-94 09:49:00 Test Item Value Reference Range Interpretation Comments MCV (test code = MCV) 91.5 80.0-98.0 [facility]GOBPUQU0656-22-63 09:49:00 Test Item Value Reference Range Interpretation Comments MCH (test code = MCH) 30.0 pg 27.0-31.0 [facility]UubdkqxVKWYRTVXML1619-46-95 09:49:00 Test Item Value Reference Range Interpretation Comments MCHC (test code = MCHC) 32.7 32.0-36.0 [facility] HospitalOyndzhpHJKRUQJSJI1089-60-22 09:49:00 Test Item Value Reference Range Interpretation Comments RDW (test code = RDW) 14.1 11.5-14.5 [facility]YykrchjMRXZYLHCFU5234-34-11 09:49:00 Test Item Value Reference Range Interpretation Comments Platelet (test code = Platelet) 136 133-450 [facility]LbgqmonNFTMUGXXHT5253-73-27 09:49:00 Test Item Value Reference Range Interpretation Comments MPV (test code = MPV) 7.7 7.4-10.4 [facility]2023-02-28 09:49:00 Test Item Value Reference Range Interpretation Comments Glucose Lvl (test code = Glucose Lvl) 93 70-99 [facility]2023-02-28 09:49:00 Test Item Value Reference Range Interpretation Comments BUN (test code = BUN) 30 - [place] 570323-02-28 09:49:00 Test Item Value Reference Range Interpretation Comments Creatinine Lvl (test code = Creatinine 2.50 0.50-1.40 Lvl) [place] 570323-02-28 09:49:00 Test Item Value Reference Range Interpretation Comments Sodium Lvl (test code = Sodium Lvl) 138 135-145 [place] 570323-02-28 09:49:00 Test Item Value Reference Range Interpretation Comments Potassium Lvl (test code = Potassium 5.1 3.5-5.1 Lvl) [place] 570323-02-28 09:49:00 Test Item Value Reference Range Interpretation Comments Chloride Lvl (test code = Chloride Lvl) 108 95-109 [place] 570323-02-28 09:49:00 Test Item Value Reference Range Interpretation Comments CO2 (test code = CO2) 30 - [place] 570323-02-28 09:49:00 Test Item Value Reference Range Interpretation Comments Calcium Lvl (test code = Calcium Lvl) 8.0 8.5-10.5 [place] 570323-02-28 09:49:00 Test Item Value Reference Range Interpretation Comments AGAP (test code = AGAP) 5.1 10.0-20.0 [place] 570323-02-28 09:49:00 Test Item Value Reference Range Interpretation Comments eGFR (test code = eGFR) 19 [place] 408583-02-28 09:49:00 Test Item Value Reference Range Interpretation Comments Glucose Lvl (test code = Glucose Lvl) 93 70-99 [place] 408583-02-28 09:49:00 Test Item Value Reference Range Interpretation Comments BUN (test code = BUN) 30 - [place] 408583-02-28 09:49:00 Test Item Value Reference Range Interpretation Comments Creatinine Lvl (test code = Creatinine 2.50 0.50-1.40 Lvl) [facility]PuizogdGZPNIHRHS6714-93-84 09:49:00 Test Item Value Reference Range Interpretation Comments Sodium Lvl (test code = Sodium Lvl) 138 135-145 [facility] CenterVdfazqzJREOEQDXS1368-63-60 09:49:00 Test Item Value Reference Range Interpretation Comments Potassium Lvl (test code = Potassium 5.1 3.5-5.1 Lvl) [facility] CenterFwpycsjRUJODRCMN8007-31-10 09:49:00 Test Item Value Reference Range Interpretation Comments Chloride Lvl (test code = Chloride Lvl) 108 95-109 [place] 408583-02-28 09:49:00 Test Item Value Reference Range Interpretation Comments CO2 (test code = CO2) 30 24-32 [place] 408583-02-28 09:49:00 Test Item Value Reference Range Interpretation Comments Calcium Lvl (test code = Calcium Lvl) 8.0 8.5-10.5 [place] 408583-02-28 09:49:00 Test Item Value Reference Range Interpretation Comments AGAP (test code = AGAP) 5.1 10.0-20.0 [facility] CenterTqbxxiiWXVXMNUON9145-03-73 09:49:00 Test Item Value Reference Range Interpretation Comments eGFR (test code = eGFR) 19 [place] 744043-02-28 09:49:00 Test Item Value Reference Range Interpretation Comments Segs (test code = Segs) 49.2 45.0-75.0 [place] 744043-02-28 09:49:00 Test Item Value Reference Range Interpretation Comments Lymphocytes (test code = Lymphocytes) 33.0 20.0-40.0 [place] 744043-02-28 09:49:00 Test Item Value Reference Range Interpretation Comments Monocytes (test code = Monocytes) 10.5 2.0-12.0 [place] [address]-02-28 09:49:00 Test Item Value Reference Range Interpretation Comments Eosinophils (test code = 6.6 See_Comment [A utomated message] The Eosinophils) system which ge nerated this result tra nsmitted reference range : <=4.0. The reference r christiano was not used to int erpret this result as normal/abnormal . [place] 744043-02-28 09:49:00 Test Item Value Reference Range Interpretation Comments Basophils (test code = 0.7 See_Comment [Aut omated message] The Basophils) system which ge nerated this result tra nsmitted reference range : <=1.0. The reference r christiano was not used to int erpret this result as normal/abnormal . [place] 744043-02-28 09:49:00 Test Item Value Reference Range Interpretation Comments Neutrophils # (test code = Neutrophils 3.0 1.5-8.1 #) [place] 744043-02-28 09:49:00 Test Item Value Reference Range Interpretation Comments Lymphocytes # (test code = Lymphocytes 2.0 1.0-5.5 #) [place] [address]-02-28 09:49:00 Test Item Value Reference Range Interpretation Comments Monocytes # (test code 0.7 See_Comment [Aut omated message] The = Monocytes #) system which generated this result tra nsmitted reference range : <=0.8. The reference r christiano was not used to int erpret this result as normal/abnormal . [place] 744043-02-28 09:49:00 Test Item Value Reference Range Interpretation Comments Eosinophils # (test code 0.4 See_Comment [A utomated message] The = Eosinophils #) system whic h generated this result tra nsmitted reference range : <=0.5. The reference r christiano was not used to int erpret this result as normal/abnormal . [facility] HospitalJvxfmqjQFNHPAQTXI4387-98-06 09:49:00 Test Item Value Reference Range Interpretation Comments WBC (test code = WBC) 6.2 3.7-10.4 [place] 744043-02-28 09:49:00 Test Item Value Reference Range Interpretation Comments RBC (test code = RBC) 3.06 4.20-5.40 [place] [address]-02-28 09:49:00 Test Item Value Reference Range Interpretation Comments Hgb (test code = Hgb) 9.2 12.0-16.0 [place] [address]-02-28 09:49:00 Test Item Value Reference Range Interpretation Comments Hct (test code = Hct) 28.0 36.0-48.0 [place] [address]-02-28 09:49:00 Test Item Value Reference Range Interpretation Comments MCV (test code = MCV) 91.5 80.0-98.0 [place] [address]-02-28 09:49:00 Test Item Value Reference Range Interpretation Comments MCH (test code = MCH) 30.0 pg 27.0-31.0 [place] 744043-02-28 09:49:00 Test Item Value Reference Range Interpretation Comments MCHC (test code = MCHC) 32.7 32.0-36.0 [place] 744043-02-28 09:49:00 Test Item Value Reference Range Interpretation Comments RDW (test code = RDW) 14.1 11.5-14.5 [place] 744043-02-28 09:49:00 Test Item Value Reference Range Interpretation Comments Platelet (test code = Platelet) 136 133-450 [place] 744043-02-28 09:49:00 Test Item Value Reference Range Interpretation Comments MPV (test code = MPV) 7.7 7.4-10.4 [place] 744043-02-28 09:49:00 Test Item Value Reference Range Interpretation Comments Segs (test code = Segs) 49.2 45.0-75.0 [place] 744043-02-28 09:49:00 Test Item Value Reference Range Interpretation Comments Lymphocytes (test code = Lymphocytes) 33.0 20.0-40.0 [place] 744043-02-28 09:49:00 Test Item Value Reference Range Interpretation Comments Monocytes (test code = Monocytes) 10.5 2.0-12.0 [facility]FzjzudyEJCFFBALIF5695-67-25 09:49:00 Test Item Value Reference Range Interpretation Comments Eosinophils (test code = 6.6 See_Comment [A utomated message] The Eosinophils) system which ge nerated this result tra nsmitted reference range : <=4.0. The reference r christiano was not used to int erpret this result as normal/abnormal . [facility] [facility]AL[facility]KL6080-68-45 09:49:00 Test Item Value Reference Range Interpretation Comments Basophils (test code = 0.7 See_Comment [Aut omated message] The Basophils) system which ge nerated this result tra nsmitted reference range : <=1.0. The reference r christiano was not used to int erpret this result as normal/abnormal . [place] 744043-02-28 09:49:00 Test Item Value Reference Range Interpretation Comments Neutrophils # (test code = Neutrophils 3.0 1.5-8.1 #) [facility]QUJEJTLBX2921[facility]74-46 09:49:00 Test Item Value Reference Range Interpretation Comments Lymphocytes # (test code = Lymphocytes 2.0 1.0-5.5 #) [facility]CtzfqnzFAYQUWTBOP2657-67-61 09:49:00 Test Item Value Reference Range Interpretation Comments Monocytes # (test code 0.7 See_Comment [Aut omated message] The = Monocytes #) system which generated this result tra nsmitted reference range : <=0.8. The reference r christiano was not used to int erpret this result as normal/abnormal . [place] 744043-02-28 09:49:00 Test Item Value Reference Range Interpretation Comments Eosinophils # (test code 0.4 See_Comment [A utomated message] The = Eosinophils #) system whic h generated this result tra nsmitted reference range : <=0.5. The reference r christiano was not used to int erpret this result as normal/abnormal . [facility] HospitalSefulowELXTPRMUEC8536-40-58 09:49:00 Test Item Value Reference Range Interpretation Comments WBC (test code = WBC) 6.2 3.7-10.4 [place] 744043-02-28 09:49:00 Test Item Value Reference Range Interpretation Comments RBC (test code = RBC) 3.06 4.20-5.40 [place] 744043-02-28 09:49:00 Test Item Value Reference Range Interpretation Comments Hgb (test code = Hgb) 9.2 12.0-16.0 [place] 744043-02-28 09:49:00 Test Item Value Reference Range Interpretation Comments Hct (test code = Hct) 28.0 36.0-48.0 [place] [address]-02-28 09:49:00 Test Item Value Reference Range Interpretation Comments MCV (test code = MCV) 91.5 80.0-98.0 [place] [address]-02-28 09:49:00 Test Item Value Reference Range Interpretation Comments MCH (test code = MCH) 30.0 pg 27.0-31.0 [place] 744043-02-28 09:49:00 Test Item Value Reference Range Interpretation Comments MCHC (test code = MCHC) 32.7 32.0-36.0 [place] [address]-02-28 09:49:00 Test Item Value Reference Range Interpretation Comments RDW (test code = RDW) 14.1 11.5-14.5 [address]02-28 09:49:00 Test Item Value Reference Range Interpretation Comments Platelet (test code = Platelet) 136 133-450 [address]02-28 09:49:00 Test Item Value Reference Range Interpretation Comments MPV (test code = MPV) 7.7 7.4-10.4 [place] [address]-02-28 09:49:00 Test Item Value Reference Range Interpretation Comments Glucose Lvl (test code = Glucose Lvl) 93 70-99 [place] [address]-02-28 09:49:00 Test Item Value Reference Range Interpretation Comments BUN (test code = BUN) 30 7-22 [place] [address]-02-28 09:49:00 Test Item Value Reference Range Interpretation Comments Creatinine Lvl (test code = Creatinine 2.50 0.50-1.40 Lvl) [place] 570323-02-28 09:49:00 Test Item Value Reference Range Interpretation Comments Sodium Lvl (test code = Sodium Lvl) 138 135-145 [place] [address]-02-28 09:49:00 Test Item Value Reference Range Interpretation Comments Potassium Lvl (test code = Potassium 5.1 3.5-5.1 Lvl) [place] [address]-02-28 09:49:00 Test Item Value Reference Range Interpretation Comments Chloride Lvl (test code = Chloride Lvl) 108 95-109 [place] [address]-02-28 09:49:00 Test Item Value Reference Range Interpretation Comments CO2 (test code = CO2) 30 24-32 [place] 570323-02-28 09:49:00 Test Item Value Reference Range Interpretation Comments Calcium Lvl (test code = Calcium Lvl) 8.0 8.5-10.5 [place] 570323-02-28 09:49:00 Test Item Value Reference Range Interpretation Comments AGAP (test code = AGAP) 5.1 10.0-20.0 [place] 570323-02-28 09:49:00 Test Item Value Reference Range Interpretation Comments eGFR (test code = eGFR) 19 [facility] CenterNuprfllGQLXVZTBJ8206-41-58 09:49:00 Test Item Value Reference Range Interpretation Comments Glucose Lvl (test code = Glucose Lvl) 93 70-99 [facility] CenterUmwhxfoVUCHVRYHV6141-59-37 09:49:00 Test Item Value Reference Range Interpretation Comments BUN (test code = BUN) 30 7-22 [facility] CenterZpjqluwTETODLNTB2208-45-34 09:49:00 Test Item Value Reference Range Interpretation Comments Creatinine Lvl (test code = Creatinine 2.50 0.50-1.40 Lvl) [facility] CenterOipqgixFIUZGGZCY0430-42-75 09:49:00 Test Item Value Reference Range Interpretation Comments Sodium Lvl (test code = Sodium Lvl) 138 135-145 [facility] CenterDxrvbwtBCHQCFKOY8115-61-98 09:49:00 Test Item Value Reference Range Interpretation Comments Potassium Lvl (test code = Potassium 5.1 3.5-5.1 Lvl) [facility] CenterWplwlaeTSXNZWCIM5069-41-49 09:49:00 Test Item Value Reference Range Interpretation Comments Chloride Lvl (test code = Chloride Lvl) 108 95-109 [facility] CenterGgcmhzoMUZHHMKYY3557-87-27 09:49:00 Test Item Value Reference Range Interpretation Comments CO2 (test code = CO2) 30 24-32 [facility] CenterVongiwuTGRIXYYYL0986-88-00 09:49:00 Test Item Value Reference Range Interpretation Comments Calcium Lvl (test code = Calcium Lvl) 8.0 8.5-10.5 [facility] CenterOoqsvalFTIQCIKHV5875-83-98 09:49:00 Test Item Value Reference Range Interpretation Comments AGAP (test code = AGAP) 5.1 10.0-20.0 [facility] CenterQrxywodQLRFCVKCB2421-21-87 09:49:00 Test Item Value Reference Range Interpretation Comments eGFR (test code = eGFR) 19 [facility] HospitalPstxuzqXAUHLSYQKI3029-88-26 09:49:00 Test Item Value Reference Range Interpretation Comments Segs (test code = Segs) 49.2 45.0-75.0 [facility] HospitalXacbwonJGHAEBBZIS8187-91-00 09:49:00 Test Item Value Reference Range Interpretation Comments Lymphocytes (test code = Lymphocytes) 33.0 20.0-40.0 [facility] HospitalIrkazbsXSUPAPWTOJ0191-21-04 09:49:00 Test Item Value Reference Range Interpretation Comments Monocytes (test code = Monocytes) 10.5 2.0-12.0 [place] 744043-02-28 09:49:00 Test Item Value Reference Range Interpretation Comments Eosinophils (test code = 6.6 See_Comment [A utomated message] The Eosinophils) system which ge nerated this result tra nsmitted reference range : <=4.0. The reference r christiano was not used to int erpret this result as normal/abnormal . [place] 744043-02-28 09:49:00 Test Item Value Reference Range Interpretation Comments Basophils (test code = 0.7 See_Comment [Aut omated message] The Basophils) system which ge nerated this result tra nsmitted reference range : <=1.0. The reference r christiano was not used to int erpret this result as normal/abnormal . [place] 744043-02-28 09:49:00 Test Item Value Reference Range Interpretation Comments Neutrophils # (test code = Neutrophils 3.0 1.5-8.1 #) [place] 744043-02-28 09:49:00 Test Item Value Reference Range Interpretation Comments Lymphocytes # (test code = Lymphocytes 2.0 1.0-5.5 #) [place] 744043-02-28 09:49:00 Test Item Value Reference Range Interpretation Comments Monocytes # (test code 0.7 See_Comment [Aut omated message] The = Monocytes #) system which generated this result tra nsmitted reference range : <=0.8. The reference r christiano was not used to int erpret this result as normal/abnormal . [place] 744043-02-28 09:49:00 Test Item Value Reference Range Interpretation Comments Eosinophils # (test code 0.4 See_Comment [A utomated message] The = Eosinophils #) system whic h generated this result tra nsmitted reference range : <=0.5. The reference r christiano was not used to int erpret this result as normal/abnormal . [place] 744043-02-28 09:49:00 Test Item Value Reference Range Interpretation Comments WBC (test code = WBC) 6.2 3.7-10.4 [place] 744043-02-28 09:49:00 Test Item Value Reference Range Interpretation Comments RBC (test code = RBC) 3.06 4.20-5.40 [place] 744043-02-28 09:49:00 Test Item Value Reference Range Interpretation Comments Hgb (test code = Hgb) 9.2 12.0-16.0 [place] 744043-02-28 09:49:00 Test Item Value Reference Range Interpretation Comments Hct (test code = Hct) 28.0 36.0-48.0 [facility] HospitalPugyhjiJHNZKNOJFA2225-67-73 09:49:00 Test Item Value Reference Range Interpretation Comments MCV (test code = MCV) 91.5 80.0-98.0 [place] 744043-02-28 09:49:00 Test Item Value Reference Range Interpretation Comments MCH (test code = MCH) 30.0 pg 27.0-31.0 [place] 744043-02-28 09:49:00 Test Item Value Reference Range Interpretation Comments MCHC (test code = MCHC) 32.7 32.0-36.0 [facility] HospitalDbhsouoKIWGNFAXTW4148-48-30 09:49:00 Test Item Value Reference Range Interpretation Comments RDW (test code = RDW) 14.1 11.5-14.5 [place] 744043-02-28 09:49:00 Test Item Value Reference Range Interpretation Comments Platelet (test code = Platelet) 136 133-450 [facility] HospitalBrypbbxYOYKONOSJL5250-75-40 09:49:00 Test Item Value Reference Range Interpretation Comments MPV (test code = MPV) 7.7 7.4-10.4 [place] 744043-02-28 09:49:00 Test Item Value Reference Range Interpretation Comments Segs (test code = Segs) 49.2 45.0-75.0 [place] 744043-02-28 09:49:00 Test Item Value Reference Range Interpretation Comments Lymphocytes (test code = Lymphocytes) 33.0 20.0-40.0 [place] 744043-02-28 09:49:00 Test Item Value Reference Range Interpretation Comments Monocytes (test code = Monocytes) 10.5 2.0-12.0 [place] 744043-02-28 09:49:00 Test Item Value Reference Range Interpretation Comments Eosinophils (test code = 6.6 See_Comment [A utomated message] The Eosinophils) system which ge nerated this result tra nsmitted reference range : <=4.0. The reference r christiano was not used to int erpret this result as normal/abnormal . [place] 744043-02-28 09:49:00 Test Item Value Reference Range Interpretation Comments Basophils (test code = 0.7 See_Comment [Aut omated message] The Basophils) system which ge nerated this result tra nsmitted reference range : <=1.0. The reference r christiano was not used to int erpret this result as normal/abnormal . [place] 744043-02-28 09:49:00 Test Item Value Reference Range Interpretation Comments Neutrophils # (test code = Neutrophils 3.0 1.5-8.1 #) [place] 744043-02-28 09:49:00 Test Item Value Reference Range Interpretation Comments Lymphocytes # (test code = Lymphocytes 2.0 1.0-5.5 #) [place] 744043-02-28 09:49:00 Test Item Value Reference Range Interpretation Comments Monocytes # (test code 0.7 See_Comment [Aut omated message] The = Monocytes #) system which generated this result tra nsmitted reference range : <=0.8. The reference r christiano was not used to int erpret this result as normal/abnormal . [facility] HospitalErzxfdlXHHAAGEBQC7980-88-57 09:49:00 Test Item Value Reference Range Interpretation Comments Eosinophils # (test code 0.4 See_Comment [A utomated message] The = Eosinophils #) system whic h generated this result tra nsmitted reference range : <=0.5. The reference r christiano was not used to int erpret this result as normal/abnormal . [facility] HospitalVjqjvcdRYPOBIYBSC0938-65-83 09:49:00 Test Item Value Reference Range Interpretation Comments WBC (test code = WBC) 6.2 3.7-10.4 [place] [address]-02-28 09:49:00 Test Item Value Reference Range Interpretation Comments RBC (test code = RBC) 3.06 4.20-5.40 [place] [address]-02-28 09:49:00 Test Item Value Reference Range Interpretation Comments Hgb (test code = Hgb) 9.2 12.0-16.0 [place] [address]-02-28 09:49:00 Test Item Value Reference Range Interpretation Comments Hct (test code = Hct) 28.0 36.0-48.0 [place] [address]-02-28 09:49:00 Test Item Value Reference Range Interpretation Comments MCV (test code = MCV) 91.5 80.0-98.0 [place] [address]-02-28 09:49:00 Test Item Value Reference Range Interpretation Comments MCH (test code = MCH) 30.0 pg 27.0-31.0 [place] [address]-02-28 09:49:00 Test Item Value Reference Range Interpretation Comments MCHC (test code = MCHC) 32.7 32.0-36.0 [place] [address]-02-28 09:49:00 Test Item Value Reference Range Interpretation Comments RDW (test code = RDW) 14.1 11.5-14.5 [place] [address]-02-28 09:49:00 Test Item Value Reference Range Interpretation Comments Platelet (test code = Platelet) 136 133-450 [place] [address]-02-28 09:49:00 Test Item Value Reference Range Interpretation Comments MPV (test code = MPV) 7.7 7.4-10.4 [place] 570323-02-28 09:49:00 Test Item Value Reference Range Interpretation Comments Glucose Lvl (test code = Glucose Lvl) 93 70-99 [place] 570323-02-28 09:49:00 Test Item Value Reference Range Interpretation Comments BUN (test code = BUN) 30 7-22 [place] 570323-02-28 09:49:00 Test Item Value Reference Range Interpretation Comments Creatinine Lvl (test code = Creatinine 2.50 0.50-1.40 Lvl) [place] 570323-02-28 09:49:00 Test Item Value Reference Range Interpretation Comments Sodium Lvl (test code = Sodium Lvl) 138 135-145 [place] 570323-02-28 09:49:00 Test Item Value Reference Range Interpretation Comments Potassium Lvl (test code = Potassium 5.1 3.5-5.1 Lvl) [place] 570323-02-28 09:49:00 Test Item Value Reference Range Interpretation Comments Chloride Lvl (test code = Chloride Lvl) 108 95-109 [place] 570323-02-28 09:49:00 Test Item Value Reference Range Interpretation Comments CO2 (test code = CO2) 30 - [place] 570323-02-28 09:49:00 Test Item Value Reference Range Interpretation Comments Calcium Lvl (test code = Calcium Lvl) 8.0 8.5-10.5 [place] 570323-02-28 09:49:00 Test Item Value Reference Range Interpretation Comments AGAP (test code = AGAP) 5.1 10.0-20.0 [place] 570323-02-28 09:49:00 Test Item Value Reference Range Interpretation Comments eGFR (test code = eGFR) 19 [place] 408583-02-28 09:49:00 Test Item Value Reference Range Interpretation Comments Glucose Lvl (test code = Glucose Lvl) 93 70-99 [place] 408583-02-28 09:49:00 Test Item Value Reference Range Interpretation Comments BUN (test code = BUN) 30 - [place] 408583-02-28 09:49:00 Test Item Value Reference Range Interpretation Comments Creatinine Lvl (test code = Creatinine 2.50 0.50-1.40 Lvl) [facility] CenterZrvwtvwKSSMLNEWN9187-18-54 09:49:00 Test Item Value Reference Range Interpretation Comments Sodium Lvl (test code = Sodium Lvl) 138 135-145 [place] 408583-02-28 09:49:00 Test Item Value Reference Range Interpretation Comments Potassium Lvl (test code = Potassium 5.1 3.5-5.1 Lvl) [facility] CenterShjiszjOKKLDLYUB7767-58-77 09:49:00 Test Item Value Reference Range Interpretation Comments Chloride Lvl (test code = Chloride Lvl) 108 95-109 [place] [address]-02-28 09:49:00 Test Item Value Reference Range Interpretation Comments CO2 (test code = CO2) 30 24-32 [facility] CenterBlvwrseRARTBAMDE4468-60-64 09:49:00 Test Item Value Reference Range Interpretation Comments Calcium Lvl (test code = Calcium Lvl) 8.0 8.5-10.5 [place] 408583-02-28 09:49:00 Test Item Value Reference Range Interpretation Comments AGAP (test code = AGAP) 5.1 10.0-20.0 [place] [address]-02-28 09:49:00 Test Item Value Reference Range Interpretation Comments eGFR (test code = eGFR) 19 [place] 744043-02-28 09:49:00 Test Item Value Reference Range Interpretation Comments Segs (test code = Segs) 49.2 45.0-75.0 [place] 744043-02-28 09:49:00 Test Item Value Reference Range Interpretation Comments Lymphocytes (test code = Lymphocytes) 33.0 20.0-40.0 [place] [address]-02-28 09:49:00 Test Item Value Reference Range Interpretation Comments Monocytes (test code = Monocytes) 10.5 2.0-12.0 [place] [address]-02-28 09:49:00 Test Item Value Reference Range Interpretation Comments Eosinophils (test code = 6.6 See_Comment [A utomated message] The Eosinophils) system which ge nerated this result tra nsmitted reference range : <=4.0. The reference r christiano was not used to int erpret this result as normal/abnormal . [facility] HospitalLzsljewZWLVPIWOWH4914-42-23 09:49:00 Test Item Value Reference Range Interpretation Comments Basophils (test code = 0.7 See_Comment [Aut omated message] The Basophils) system which ge nerated this result tra nsmitted reference range : <=1.0. The reference r christiano was not used to int erpret this result as normal/abnormal . [facility] HospitalOfhefdeTCHAHCZJQT9605-51-72 09:49:00 Test Item Value Reference Range Interpretation Comments Neutrophils # (test code = Neutrophils 3.0 1.5-8.1 #) [place] 744043-02-28 09:49:00 Test Item Value Reference Range Interpretation Comments Lymphocytes # (test code = Lymphocytes 2.0 1.0-5.5 #) [place] [address]-02-28 09:49:00 Test Item Value Reference Range Interpretation Comments Monocytes # (test code 0.7 See_Comment [Aut omated message] The = Monocytes #) system which generated this result tra nsmitted reference range : <=0.8. The reference r christiano was not used to int erpret this result as normal/abnormal . [place] 744043-02-28 09:49:00 Test Item Value Reference Range Interpretation Comments Eosinophils # (test code 0.4 See_Comment [A utomated message] The = Eosinophils #) system whic h generated this result tra nsmitted reference range : <=0.5. The reference r christiano was not used to int erpret this result as normal/abnormal . [facility] HospitalLjymxpoODSPLWZOIE8849-64-65 09:49:00 Test Item Value Reference Range Interpretation Comments WBC (test code = WBC) 6.2 3.7-10.4 [place] 744043-02-28 09:49:00 Test Item Value Reference Range Interpretation Comments RBC (test code = RBC) 3.06 4.20-5.40 [place] 744043-02-28 09:49:00 Test Item Value Reference Range Interpretation Comments Hgb (test code = Hgb) 9.2 12.0-16.0 [facility] HospitalVxyloalHBWHSSMADH7014-96-53 09:49:00 Test Item Value Reference Range Interpretation Comments Hct (test code = Hct) 28.0 36.0-48.0 [facility] HospitalDqrducePWUWXPJWVN2381-26-31 09:49:00 Test Item Value Reference Range Interpretation Comments MCV (test code = MCV) 91.5 80.0-98.0 [facility] HospitalJpzqktrQALFXQPLTA8479-15-70 09:49:00 Test Item Value Reference Range Interpretation Comments MCH (test code = MCH) 30.0 pg 27.0-31.0 [facility] HospitalMgotemzNWCOQQLUXE7919-97-47 09:49:00 Test Item Value Reference Range Interpretation Comments MCHC (test code = MCHC) 32.7 32.0-36.0 [facility] HospitalIwmyelhPGVWXSQWGG8133-95-49 09:49:00 Test Item Value Reference Range Interpretation Comments RDW (test code = RDW) 14.1 11.5-14.5 [place] 744043-02-28 09:49:00 Test Item Value Reference Range Interpretation Comments Platelet (test code = Platelet) 136 133-450 [facility] HospitalJkmfowrBECJVAVQCR7828-35-76 09:49:00 Test Item Value Reference Range Interpretation Comments MPV (test code = MPV) 7.7 7.4-10.4 [facility] HospitalYqptrwfGVJCHDAPVK1813-68-53 09:49:00 Test Item Value Reference Range Interpretation Comments Segs (test code = Segs) 49.2 45.0-75.0 [place] [address]-02-28 09:49:00 Test Item Value Reference Range Interpretation Comments Lymphocytes (test code = Lymphocytes) 33.0 20.0-40.0 [place] [address]-02-28 09:49:00 Test Item Value Reference Range Interpretation Comments Monocytes (test code = Monocytes) 10.5 2.0-12.0 [place] [address]-02-28 09:49:00 Test Item Value Reference Range Interpretation Comments Eosinophils (test code = 6.6 See_Comment [A utomated message] The Eosinophils) system which ge nerated this result tra nsmitted reference range : <=4.0. The reference r christiano was not used to int erpret this result as normal/abnormal . [place] [address]-02-28 09:49:00 Test Item Value Reference Range Interpretation Comments Basophils (test code = 0.7 See_Comment [Aut omated message] The Basophils) system which ge nerated this result tra nsmitted reference range : <=1.0. The reference r christiano was not used to int erpret this result as normal/abnormal . [place] [address]-02-28 09:49:00 Test Item Value Reference Range Interpretation Comments Neutrophils # (test code = Neutrophils 3.0 1.5-8.1 #) [place] [address]-02-28 09:49:00 Test Item Value Reference Range Interpretation Comments Lymphocytes # (test code = Lymphocytes 2.0 1.0-5.5 #) [place] [address]-02-28 09:49:00 Test Item Value Reference Range Interpretation Comments Monocytes # (test code 0.7 See_Comment [Aut omated message] The = Monocytes #) system which generated this result tra nsmitted reference range : <=0.8. The reference r christiano was not used to int erpret this result as normal/abnormal . [place] [address]-02-28 09:49:00 Test Item Value Reference Range Interpretation Comments Eosinophils # (test code 0.4 See_Comment [A utomated message] The = Eosinophils #) system [facility] h generated this result tra nsmitted reference range : <=0.5. The reference r christiano was not used to int erpret this result as normal/abnormal . [facility] HospitalVlxuvavDYBHKUBKVC9085-82-53 09:49:00 Test Item Value Reference Range Interpretation Comments WBC (test code = WBC) 6.2 3.7-10.4 [place] 744043-02-28 09:49:00 Test Item Value Reference Range Interpretation Comments RBC (test code = RBC) 3.06 4.20-5.40 [place] [address]-02-28 09:49:00 Test Item Value Reference Range Interpretation Comments Hgb (test code = Hgb) 9.2 12.0-16.0 [place] [address]-02-28 09:49:00 Test Item Value Reference Range Interpretation Comments Hct (test code = Hct) 28.0 36.0-48.0 [place] [address]-02-28 09:49:00 Test Item Value Reference Range Interpretation Comments MCV (test code = MCV) 91.5 80.0-98.0 [place] [address]-02-28 09:49:00 Test Item Value Reference Range Interpretation Comments MCH (test code = MCH) 30.0 pg 27.0-31.0 [place] 744043-02-28 09:49:00 Test Item Value Reference Range Interpretation Comments MCHC (test code = MCHC) 32.7 32.0-36.0 [facility] HospitalCnscyfhAJKQFDTIEW7780-76-77 09:49:00 Test Item Value Reference Range Interpretation Comments RDW (test code = RDW) 14.1 11.5-14.5 [place] 744043-02-28 09:49:00 Test Item Value Reference Range Interpretation Comments Platelet (test code = Platelet) 136 133-450 [place] 744043-02-28 09:49:00 Test Item Value Reference Range Interpretation Comments MPV (test code = MPV) 7.7 7.4-10.4 [facility]2023-02-28 09:49:00 Test Item Value Reference Range Interpretation Comments Glucose Lvl (test code = Glucose Lvl) 93 70-99 [place] 570323-02-28 09:49:00 Test Item Value Reference Range Interpretation Comments BUN (test code = BUN) 30 7-22 [place] 570323-02-28 09:49:00 Test Item Value Reference Range Interpretation Comments Creatinine Lvl (test code = Creatinine 2.50 0.50-1.40 Lvl) [place] 570323-02-28 09:49:00 Test Item Value Reference Range Interpretation Comments Sodium Lvl (test code = Sodium Lvl) 138 135-145 [place] 570323-02-28 09:49:00 Test Item Value Reference Range Interpretation Comments Potassium Lvl (test code = Potassium 5.1 3.5-5.1 Lvl) [place] 570323-02-28 09:49:00 Test Item Value Reference Range Interpretation Comments Chloride Lvl (test code = Chloride Lvl) 108 95-109 [place] 570323-02-28 09:49:00 Test Item Value Reference Range Interpretation Comments CO2 (test code = CO2) 30 24-32 [place] 570323-02-28 09:49:00 Test Item Value Reference Range Interpretation Comments Calcium Lvl (test code = Calcium Lvl) 8.0 8.5-10.5 [place] 570323-02-28 09:49:00 Test Item Value Reference Range Interpretation Comments AGAP (test code = AGAP) 5.1 10.0-20.0 [place] 570323-02-28 09:49:00 Test Item Value Reference Range Interpretation Comments eGFR (test code = eGFR) 19 [facility] [facility]qaudglJPLKOSEIX8967-83-29 09:49:00 Test Item Value Reference Range Interpretation Comments Glucose Lvl (test code = Glucose Lvl) 93 70-99 [place] 408583-02-28 09:49:00 Test Item Value Reference Range Interpretation Comments BUN (test code = BUN) 30 7-22 [place] 408583-02-28 09:49:00 Test Item Value Reference Range Interpretation Comments Creatinine Lvl (test code = Creatinine 2.50 0.50-1.40 Lvl) [place] 408583-02-28 09:49:00 Test Item Value Reference Range Interpretation Comments Sodium Lvl (test code = Sodium Lvl) 138 135-145 [place] 408583-02-28 09:49:00 Test Item Value Reference Range Interpretation Comments Potassium Lvl (test code = Potassium 5.1 3.5-5.1 Lvl) [facility] CenterByywqqbZNTODHHAC8600-87-01 09:49:00 Test Item Value Reference Range Interpretation Comments Chloride Lvl (test code = Chloride Lvl) 108 95-109 [facility] CenterRbkghinYITKXNQOE0847-62-92 09:49:00 Test Item Value Reference Range Interpretation Comments CO2 (test code = CO2) 30 24-32 [facility] CenterNdljcylJUYKYFGLN7703-15-77 09:49:00 Test Item Value Reference Range Interpretation Comments Calcium Lvl (test code = Calcium Lvl) 8.0 8.5-10.5 [facility] CenterBwidgpcUPUBTCWJX6109-16-03 09:49:00 Test Item Value Reference Range Interpretation Comments AGAP (test code = AGAP) 5.1 10.0-20.0 [facility] CenterQswspmjHAMQZQEHZ5069-58-72 09:49:00 Test Item Value Reference Range Interpretation Comments eGFR (test code = eGFR) 19 [facility]Jfh[facility]GOALIJBSAI1743[facility]14-30 09:49:00 Test Item Value Reference Range Interpretation Comments Segs (test code = Segs) 49.2 45.0-75.0 [place] 744043-02-28 09:49:00 Test Item Value Reference Range Interpretation Comments Lymphocytes (test code = Lymphocytes) 33.0 20.0-40.0 [facility] HospitalShesxbtMZFFCXENAI3543-13-90 09:49:00 Test Item Value Reference Range Interpretation Comments Monocytes (test code = Monocytes) 10.5 2.0-12.0 [facility] HospitalGdybuqnKLMMLIXIDK4347-75-94 09:49:00 Test Item Value Reference Range Interpretation Comments Eosinophils (test code = 6.6 See_Comment [A utomated message] The Eosinophils) system which ge nerated this result tra nsmitted reference range : <=4.0. The reference r christiano was not used to int erpret this result as normal/abnormal . [facility] HospitalVtpufsrPNZXSRRNNX2001-24-71 09:49:00 Test Item Value Reference Range Interpretation Comments Basophils (test code = 0.7 See_Comment [Aut omated message] The Basophils) system which ge nerated this result tra nsmitted reference range : <=1.0. The reference r christiano was not used to int erpret this result as normal/abnormal . [facility] HospitalCewppszEOFWULAPIT2919-01-15 09:49:00 Test Item Value Reference Range Interpretation Comments Neutrophils # (test code = Neutrophils 3.0 1.5-8.1 #) [place] 744043-02-28 09:49:00 Test Item Value Reference Range Interpretation Comments Lymphocytes # (test code = Lymphocytes 2.0 1.0-5.5 #) [place] 744043-02-28 09:49:00 Test Item Value Reference Range Interpretation Comments Monocytes # (test code 0.7 See_Comment [Aut omated message] The = Monocytes #) system which generated this result tra nsmitted reference range : <=0.8. The reference r christiano was not used to int erpret this result as normal/abnormal . [place] [address]-02-28 09:49:00 Test Item Value Reference Range Interpretation Comments Eosinophils # (test code 0.4 See_Comment [A utomated message] The = Eosinophils #) system whic h generated this result tra nsmitted reference range : <=0.5. The reference r christiano was not used to int erpret this result as normal/abnormal . [place] 744043-02-28 09:49:00 Test Item Value Reference Range Interpretation Comments WBC (test code = WBC) 6.2 3.7-10.4 [place] [address]-02-28 09:49:00 Test Item Value Reference Range Interpretation Comments RBC (test code = RBC) 3.06 4.20-5.40 [place] [address]-02-28 09:49:00 Test Item Value Reference Range Interpretation Comments Hgb (test code = Hgb) 9.2 12.0-16.0 [place] [address]-02-28 09:49:00 Test Item Value Reference Range Interpretation Comments Hct (test code = Hct) 28.0 36.0-48.0 [place] [address]-02-28 09:49:00 Test Item Value Reference Range Interpretation Comments MCV (test code = MCV) 91.5 80.0-98.0 [place] [address]-02-28 09:49:00 Test Item Value Reference Range Interpretation Comments MCH (test code = MCH) 30.0 pg 27.0-31.0 [place] [address]-02-28 09:49:00 Test Item Value Reference Range Interpretation Comments MCHC (test code = MCHC) 32.7 32.0-36.0 [facility] HospitalQtnvfzrRBDZPABXIF4877-99-86 09:49:00 Test Item Value Reference Range Interpretation Comments RDW (test code = RDW) 14.1 11.5-14.5 [place] 744043-02-28 09:49:00 Test Item Value Reference Range Interpretation Comments Platelet (test code = Platelet) 136 133-450 [place] 744043-02-28 09:49:00 Test Item Value Reference Range Interpretation Comments MPV (test code = MPV) 7.7 7.4-10.4 [place] 744043-02-28 09:49:00 Test Item Value Reference Range Interpretation Comments Segs (test code = Segs) 49.2 45.0-75.0 [place] 744043-02-28 09:49:00 Test Item Value Reference Range Interpretation Comments Lymphocytes (test code = Lymphocytes) 33.0 20.0-40.0 [place] 744043-02-28 09:49:00 Test Item Value Reference Range Interpretation Comments Monocytes (test code = Monocytes) 10.5 2.0-12.0 [place] 744043-02-28 09:49:00 Test Item Value Reference Range Interpretation Comments Eosinophils (test code = 6.6 See_Comment [A utomated message] The Eosinophils) system which ge nerated this result tra nsmitted reference range : <=4.0. The reference r christiano was not used to int erpret this result as normal/abnormal . [facility] HospitalSqtlrgfWEYEJDRUXX5163-22-11 09:49:00 Test Item Value Reference Range Interpretation Comments Basophils (test code = 0.7 See_Comment [Aut omated message] The Basophils) system which ge nerated this result tra nsmitted reference range : <=1.0. The reference r christiano was not used to int erpret this result as normal/abnormal . [facility] HospitalYgvtrtiPRPPRNKBTL1794-69-94 09:49:00 Test Item Value Reference Range Interpretation Comments Neutrophils # (test code = Neutrophils 3.0 1.5-8.1 #) [facility] HospitalQgcquanGRDPVMJWMD2794-27-84 09:49:00 Test Item Value Reference Range Interpretation Comments Lymphocytes # (test code = Lymphocytes 2.0 1.0-5.5 #) [place] [address]-02-28 09:49:00 Test Item Value Reference Range Interpretation Comments Monocytes # (test code 0.7 See_Comment [Aut omated message] The = Monocytes #) system which generated this result tra nsmitted reference range : <=0.8. The reference r christiano was not used to int erpret this result as normal/abnormal . [facility] HospitalZnewaldFFAFBVVDQG7930-26-47 09:49:00 Test Item Value Reference Range Interpretation Comments Eosinophils # (test code 0.4 See_Comment [A utomated message] The = Eosinophils #) system whic h generated this result tra nsmitted reference range : <=0.5. The reference r christiano was not used to int erpret this result as normal/abnormal . [facility] HospitalAzhivgzIBBDBVYHGP0033-00-83 09:49:00 Test Item Value Reference Range Interpretation Comments WBC (test code = WBC) 6.2 3.7-10.4 [place] 744043-02-28 09:49:00 Test Item Value Reference Range Interpretation Comments RBC (test code = RBC) 3.06 4.20-5.40 [place] 744043-02-28 09:49:00 Test Item Value Reference Range Interpretation Comments Hgb (test code = Hgb) 9.2 12.0-16.0 [place] 744043-02-28 09:49:00 Test Item Value Reference Range Interpretation Comments Hct (test code = Hct) 28.0 36.0-48.0 [facility] HospitalVyzlievAJSPKEKOKW0395-06-59 09:49:00 Test Item Value Reference Range Interpretation Comments MCV (test code = MCV) 91.5 80.0-98.0 [facility] HospitalGyzazreUONPFSYLRD6913-76-93 09:49:00 Test Item Value Reference Range Interpretation Comments MCH (test code = MCH) 30.0 pg 27.0-31.0 [place] 744043-02-28 09:49:00 Test Item Value Reference Range Interpretation Comments MCHC (test code = MCHC) 32.7 32.0-36.0 [place] 744043-02-28 09:49:00 Test Item Value Reference Range Interpretation Comments RDW (test code = RDW) 14.1 11.5-14.5 [facility] HospitalCifvwdnIUJQEOFPZS0614-65-90 09:49:00 Test Item Value Reference Range Interpretation Comments Platelet (test code = Platelet) 136 133-450 [facility]khaucgBFSTFTEGPR9911-61-46 09:49:00 Test Item Value Reference Range Interpretation Comments MPV (test code = MPV) 7.7 7.4-10.4 [place] 570323-02-28 09:49:00 Test Item Value Reference Range Interpretation Comments Glucose Lvl (test code = Glucose Lvl) 93 70-99 [place] 570323-02-28 09:49:00 Test Item Value Reference Range Interpretation Comments BUN (test code = BUN) 30 7-22 [place] 570323-02-28 09:49:00 Test Item Value Reference Range Interpretation Comments Creatinine Lvl (test code = Creatinine 2.50 0.50-1.40 Lvl) [place] 570323-02-28 09:49:00 Test Item Value Reference Range Interpretation Comments Sodium Lvl (test code = Sodium Lvl) 138 135-145 [place] 570323-02-28 09:49:00 Test Item Value Reference Range Interpretation Comments Potassium Lvl (test code = Potassium 5.1 3.5-5.1 Lvl) [place] 570323-02-28 09:49:00 Test Item Value Reference Range Interpretation Comments Chloride Lvl (test code = Chloride Lvl) 108 95-109 [place] 570323-02-28 09:49:00 Test Item Value Reference Range Interpretation Comments CO2 (test code = CO2) 30 24-32 [place] 570323-02-28 09:49:00 Test Item Value Reference Range Interpretation Comments Calcium Lvl (test code = Calcium Lvl) 8.0 8.5-10.5 [place] 570323-02-28 09:49:00 Test Item Value Reference Range Interpretation Comments AGAP (test code = AGAP) 5.1 10.0-20.0 [place] 570323-02-28 09:49:00 Test Item Value Reference Range Interpretation Comments eGFR (test code = eGFR) 19 [place] 408583-02-28 09:49:00 Test Item Value Reference Range Interpretation Comments Glucose Lvl (test code = Glucose Lvl) 93 70-99 [place] 408583-02-28 09:49:00 Test Item Value Reference Range Interpretation Comments BUN (test code = BUN) 30 7-22 [facility] CenterXqqzgofLLPBNRXIF5727-46-43 09:49:00 Test Item Value Reference Range Interpretation Comments Creatinine Lvl (test code = Creatinine 2.50 0.50-1.40 Lvl) [facility] CenterEzebsvhQRLHOPWMZ4024-26-80 09:49:00 Test Item Value Reference Range Interpretation Comments Sodium Lvl (test code = Sodium Lvl) 138 135-145 [facility] CenterSecfunmUVJVFGVLH3004-13-85 09:49:00 Test Item Value Reference Range Interpretation Comments Potassium Lvl (test code = Potassium 5.1 3.5-5.1 Lvl) [facility] CenterEhshvxwZLUXEAKIE6758-44-26 09:49:00 Test Item Value Reference Range Interpretation Comments Chloride Lvl (test code = Chloride Lvl) 108 95-109 [facility] CenterHigjrolXNSSUHEZX4078-10-05 09:49:00 Test Item Value Reference Range Interpretation Comments CO2 (test code = CO2) 30 24-32 [facility] CenterLzgxuxuSXTPJXZWJ3827-92-99 09:49:00 Test Item Value Reference Range Interpretation Comments Calcium Lvl (test code = Calcium Lvl) 8.0 8.5-10.5 [facility] CenterVllytjqKQBAGPUAG7246-13-82 09:49:00 Test Item Value Reference Range Interpretation Comments AGAP (test code = AGAP) 5.1 10.0-20.0 [facility] CenterRmmkdvxDPQVNWCNY1802-77-78 09:49:00 Test Item Value Reference Range Interpretation Comments eGFR (test code = eGFR) 19 [facility] HospitalUtqxtagZLXPWSFFDX7601-81-00 09:49:00 Test Item Value Reference Range Interpretation Comments Segs (test code = Segs) 49.2 45.0-75.0 [facility] HospitalTyuohcnCFBTGAUEZK1826-35-32 09:49:00 Test Item Value Reference Range Interpretation Comments Lymphocytes (test code = Lymphocytes) 33.0 20.0-40.0 [facility] HospitalCrvjyueHUYURUZODH8090-59-06 09:49:00 Test Item Value Reference Range Interpretation Comments Monocytes (test code = Monocytes) 10.5 2.0-12.0 [facility] HospitalVcxxufyNBMGDBWRBD9371-77-83 09:49:00 Test Item Value Reference Range Interpretation Comments Eosinophils (test code = 6.6 See_Comment [A utomated message] The Eosinophils) system which ge nerated this result tra nsmitted reference range : <=4.0. The reference r christiano was not used to int erpret this result as normal/abnormal . [facility] HospitalVdlxkloMPIECPEHEX7542-11-09 09:49:00 Test Item Value Reference Range Interpretation Comments Basophils (test code = 0.7 See_Comment [Aut omated message] The Basophils) system which ge nerated this result tra nsmitted reference range : <=1.0. The reference r christiano was not used to int erpret this result as normal/abnormal . [place] 744043-02-28 09:49:00 Test Item Value Reference Range Interpretation Comments Neutrophils # (test code = Neutrophils 3.0 1.5-8.1 #) [place] 744043-02-28 09:49:00 Test Item Value Reference Range Interpretation Comments Lymphocytes # (test code = Lymphocytes 2.0 1.0-5.5 #) [place] 744043-02-28 09:49:00 Test Item Value Reference Range Interpretation Comments Monocytes # (test code 0.7 See_Comment [Aut omated message] The = Monocytes #) system which generated this result tra nsmitted reference range : <=0.8. The reference r christiano was not used to int erpret this result as normal/abnormal . [facility] HospitalZzavuxbCEEKDYWGMB7465-07-71 09:49:00 Test Item Value Reference Range Interpretation Comments Eosinophils # (test code 0.4 See_Comment [A utomated message] The = Eosinophils #) system whic h generated this result tra nsmitted reference range : <=0.5. The reference r christiano was not used to int erpret this result as normal/abnormal . [facility] HospitalLwwjswlARQQYHOSOM5953-75-02 09:49:00 Test Item Value Reference Range Interpretation Comments WBC (test code = WBC) 6.2 3.7-10.4 [place] 744043-02-28 09:49:00 Test Item Value Reference Range Interpretation Comments RBC (test code = RBC) 3.06 4.20-5.40 [place] 744043-02-28 09:49:00 Test Item Value Reference Range Interpretation Comments Hgb (test code = Hgb) 9.2 12.0-16.0 [place] [address]-02-28 09:49:00 Test Item Value Reference Range Interpretation Comments Hct (test code = Hct) 28.0 36.0-48.0 [place] 744043-02-28 09:49:00 Test Item Value Reference Range Interpretation Comments MCV (test code = MCV) 91.5 80.0-98.0 [place] 744043-02-28 09:49:00 Test Item Value Reference Range Interpretation Comments MCH (test code = MCH) 30.0 pg 27.0-31.0 [place] 744043-02-28 09:49:00 Test Item Value Reference Range Interpretation Comments MCHC (test code = MCHC) 32.7 32.0-36.0 [place] 744043-02-28 09:49:00 Test Item Value Reference Range Interpretation Comments RDW (test code = RDW) 14.1 11.5-14.5 [place] 744043-02-28 09:49:00 Test Item Value Reference Range Interpretation Comments Platelet (test code = Platelet) 136 133-450 [place] 744043-02-28 09:49:00 Test Item Value Reference Range Interpretation Comments MPV (test code = MPV) 7.7 7.4-10.4 [place] 744043-02-28 09:49:00 Test Item Value Reference Range Interpretation Comments Segs (test code = Segs) 49.2 45.0-75.0 [place] 744043-02-28 09:49:00 Test Item Value Reference Range Interpretation Comments Lymphocytes (test code = Lymphocytes) 33.0 20.0-40.0 [place] [address]-02-28 09:49:00 Test Item Value Reference Range Interpretation Comments Monocytes (test code = Monocytes) 10.5 2.0-12.0 [place] [address]-02-28 09:49:00 Test Item Value Reference Range Interpretation Comments Eosinophils (test code = 6.6 See_Comment [A utomated message] The Eosinophils) system which ge nerated this result tra nsmitted reference range : <=4.0. The reference r christiano was not used to int erpret this result as normal/abnormal . [place] 744043-02-28 09:49:00 Test Item Value Reference Range Interpretation Comments Basophils (test code = 0.7 See_Comment [Aut omated message] The Basophils) system which ge nerated this result tra nsmitted reference range : <=1.0. The reference r christiano was not used to int erpret this result as normal/abnormal . [place] 744043-02-28 09:49:00 Test Item Value Reference Range Interpretation Comments Neutrophils # (test code = Neutrophils 3.0 1.5-8.1 #) [place] 744043-02-28 09:49:00 Test Item Value Reference Range Interpretation Comments Lymphocytes # (test code = Lymphocytes 2.0 1.0-5.5 #) [place] [address]-02-28 09:49:00 Test Item Value Reference Range Interpretation Comments Monocytes # (test code 0.7 See_Comment [Aut omated message] The = Monocytes #) system which generated this result tra nsmitted reference range : <=0.8. The reference r christiano was not used to int erpret this result as normal/abnormal . [place] 744043-02-28 09:49:00 Test Item Value Reference Range Interpretation Comments Eosinophils # (test code 0.4 See_Comment [A utomated message] The = Eosinophils #) system whic h generated this result tra nsmitted reference range : <=0.5. The reference r christiano was not used to int erpret this result as normal/abnormal . [place] 744043-02-28 09:49:00 Test Item Value Reference Range Interpretation Comments WBC (test code = WBC) 6.2 3.7-10.4 [place] 744043-02-28 09:49:00 Test Item Value Reference Range Interpretation Comments RBC (test code = RBC) 3.06 4.20-5.40 [place] [address]-02-28 09:49:00 Test Item Value Reference Range Interpretation Comments Hgb (test code = Hgb) 9.2 12.0-16.0 [place] [address]-02-28 09:49:00 Test Item Value Reference Range Interpretation Comments Hct (test code = Hct) 28.0 36.0-48.0 [place] [address]-02-28 09:49:00 Test Item Value Reference Range Interpretation Comments MCV (test code = MCV) 91.5 80.0-98.0 [place] [address]-02-28 09:49:00 Test Item Value Reference Range Interpretation Comments MCH (test code = MCH) 30.0 pg 27.0-31.0 [place] [address]-02-28 09:49:00 Test Item Value Reference Range Interpretation Comments MCHC (test code = MCHC) 32.7 32.0-36.0 [place] [address]-02-28 09:49:00 Test Item Value Reference Range Interpretation Comments RDW (test code = RDW) 14.1 11.5-14.5 [place] [address]-02-28 09:49:00 Test Item Value Reference Range Interpretation Comments Platelet (test code = Platelet) 136 133-450 [place] [address]-02-28 09:49:00 Test Item Value Reference Range Interpretation Comments MPV (test code = MPV) 7.7 7.4-10.4 [place] 570323-02-28 09:49:00 Test Item Value Reference Range Interpretation Comments Glucose Lvl (test code = Glucose Lvl) 93 70-99 [place] 570323-02-28 09:49:00 Test Item Value Reference Range Interpretation Comments BUN (test code = BUN) 30 7-22 [place] 570323-02-28 09:49:00 Test Item Value Reference Range Interpretation Comments Creatinine Lvl (test code = Creatinine 2.50 0.50-1.40 Lvl) [place] 570323-02-28 09:49:00 Test Item Value Reference Range Interpretation Comments Sodium Lvl (test code = Sodium Lvl) 138 135-145 [place] 570323-02-28 09:49:00 Test Item Value Reference Range Interpretation Comments Potassium Lvl (test code = Potassium 5.1 3.5-5.1 Lvl) [place] 570323-02-28 09:49:00 Test Item Value Reference Range Interpretation Comments Chloride Lvl (test code = Chloride Lvl) 108 95-109 [place] 570323-02-28 09:49:00 Test Item Value Reference Range Interpretation Comments CO2 (test code = CO2) 30 24-32 [place] 570323-02-28 09:49:00 Test Item Value Reference Range Interpretation Comments Calcium Lvl (test code = Calcium Lvl) 8.0 8.5-10.5 [facility]2023-02-28 09:49:00 Test Item Value Reference Range Interpretation Comments AGAP (test code = AGAP) 5.1 10.0-20.0 [place] 570323-02-28 09:49:00 Test Item Value Reference Range Interpretation Comments eGFR (test code = eGFR) 19 [place] 408583-02-28 09:49:00 Test Item Value Reference Range Interpretation Comments Glucose Lvl (test code = Glucose Lvl) 93 70-99 [place] [address]-02-28 09:49:00 Test Item Value Reference Range Interpretation Comments BUN (test code = BUN) 30 7-22 [facility] CenterWulvwlqRSYBDXDJM4448-88-33 09:49:00 Test Item Value Reference Range Interpretation Comments Creatinine Lvl (test code = Creatinine 2.50 0.50-1.40 Lvl) [facility] CenterTsnrmwcYXPSOSASV0642-85-37 09:49:00 Test Item Value Reference Range Interpretation Comments Sodium Lvl (test code = Sodium Lvl) 138 135-145 [facility] CenterGcnsuxcPMIOYJDRZ9609-41-94 09:49:00 Test Item Value Reference Range Interpretation Comments Potassium Lvl (test code = Potassium 5.1 3.5-5.1 Lvl) [facility] CenterPtuldrmLMHXIEXIH0955-27-91 09:49:00 Test Item Value Reference Range Interpretation Comments Chloride Lvl (test code = Chloride Lvl) 108 95-109 [place] 408583-02-28 09:49:00 Test Item Value Reference Range Interpretation Comments CO2 (test code = CO2) 30 24-32 [place] 408583-02-28 09:49:00 Test Item Value Reference Range Interpretation Comments Calcium Lvl (test code = Calcium Lvl) 8.0 8.5-10.5 [place] 408583-02-28 09:49:00 Test Item Value Reference Range Interpretation Comments AGAP (test code = AGAP) 5.1 10.0-20.0 [place] 408583-02-28 09:49:00 Test Item Value Reference Range Interpretation Comments eGFR (test code = eGFR) 19 [facility] HospitalBbqplguUGNWCRZAYZ8307-68-36 09:49:00 Test Item Value Reference Range Interpretation Comments Segs (test code = Segs) 49.2 45.0-75.0 [place] [address]-02-28 09:49:00 Test Item Value Reference Range Interpretation Comments Lymphocytes (test code = Lymphocytes) 33.0 20.0-40.0 [place] [address]-02-28 09:49:00 Test Item Value Reference Range Interpretation Comments Monocytes (test code = Monocytes) 10.5 2.0-12.0 [place] [address]-02-28 09:49:00 Test Item Value Reference Range Interpretation Comments Eosinophils (test code = 6.6 See_Comment [A utomated message] The Eosinophils) system which ge nerated this result tra nsmitted reference range : <=4.0. The reference r christiano was not used to int erpret this result as normal/abnormal . [place] [address]-02-28 09:49:00 Test Item Value Reference Range Interpretation Comments Basophils (test code = 0.7 See_Comment [Aut omated message] The Basophils) system which ge nerated this result tra nsmitted reference range : <=1.0. The reference r christiano was not used to int erpret this result as normal/abnormal . [place] 744043-02-28 09:49:00 Test Item Value Reference Range Interpretation Comments Neutrophils # (test code = Neutrophils 3.0 1.5-8.1 #) [place] [address]-02-28 09:49:00 Test Item Value Reference Range Interpretation Comments Lymphocytes # (test code = Lymphocytes 2.0 1.0-5.5 #) [place] [address]-02-28 09:49:00 Test Item Value Reference Range Interpretation Comments Monocytes # (test code 0.7 See_Comment [Aut omated message] The = Monocytes #) system which generated this result tra nsmitted reference range : <=0.8. The reference r christiano was not used to int erpret this result as normal/abnormal . [place] 744043-02-28 09:49:00 Test Item Value Reference Range Interpretation Comments Eosinophils # (test code 0.4 See_Comment [A utomated message] The = Eosinophils #) system [facility] h generated this result tra nsmitted reference range : <=0.5. The reference r christiano was not used to int erpret this result as normal/abnormal . [place] [address]-02-28 09:49:00 Test Item Value Reference Range Interpretation Comments WBC (test code = WBC) 6.2 3.7-10.4 [place] [address]-02-28 09:49:00 Test Item Value Reference Range Interpretation Comments RBC (test code = RBC) 3.06 4.20-5.40 [place] [address]-02-28 09:49:00 Test Item Value Reference Range Interpretation Comments Hgb (test code = Hgb) 9.2 12.0-16.0 [place] [address]-02-28 09:49:00 Test Item Value Reference Range Interpretation Comments Hct (test code = Hct) 28.0 36.0-48.0 [place] [address]-02-28 09:49:00 Test Item Value Reference Range Interpretation Comments MCV (test code = MCV) 91.5 80.0-98.0 [place] [address]-02-28 09:49:00 Test Item Value Reference Range Interpretation Comments MCH (test code = MCH) 30.0 pg 27.0-31.0 [place] [address]-02-28 09:49:00 Test Item Value Reference Range Interpretation Comments MCHC (test code = MCHC) 32.7 32.0-36.0 [place] [address]-02-28 09:49:00 Test Item Value Reference Range Interpretation Comments RDW (test code = RDW) 14.1 11.5-14.5 [place] [address]-02-28 09:49:00 Test Item Value Reference Range Interpretation Comments Platelet (test code = Platelet) 136 133-450 [place] [address]-02-28 09:49:00 Test Item Value Reference Range Interpretation Comments MPV (test code = MPV) 7.7 7.4-10.4 [place] [address]-02-28 09:49:00 Test Item Value Reference Range Interpretation Comments Segs (test code = Segs) 49.2 45.0-75.0 [place] [address]-02-28 09:49:00 Test Item Value Reference Range Interpretation Comments Lymphocytes (test code = Lymphocytes) 33.0 20.0-40.0 [place] [address]-02-28 09:49:00 Test Item Value Reference Range Interpretation Comments Monocytes (test code = Monocytes) 10.5 2.0-12.0 [place] [address]-02-28 09:49:00 Test Item Value Reference Range Interpretation Comments Eosinophils (test code = 6.6 See_Comment [A utomated message] The Eosinophils) system which ge nerated this result tra nsmitted reference range : <=4.0. The reference r christiano was not used to int erpret this result as normal/abnormal . [place] 744043-02-28 09:49:00 Test Item Value Reference Range Interpretation Comments Basophils (test code = 0.7 See_Comment [Aut omated message] The Basophils) system which ge nerated this result tra nsmitted reference range : <=1.0. The reference r christiano was not used to int erpret this result as normal/abnormal . [place] 744043-02-28 09:49:00 Test Item Value Reference Range Interpretation Comments Neutrophils # (test code = Neutrophils 3.0 1.5-8.1 #) [place] 744043-02-28 09:49:00 Test Item Value Reference Range Interpretation Comments Lymphocytes # (test code = Lymphocytes 2.0 1.0-5.5 #) [place] 744043-02-28 09:49:00 Test Item Value Reference Range Interpretation Comments Monocytes # (test code 0.7 See_Comment [Aut omated message] The = Monocytes #) system which generated this result tra nsmitted reference range : <=0.8. The reference r christiano was not used to int erpret this result as normal/abnormal . [place] 744043-02-28 09:49:00 Test Item Value Reference Range Interpretation Comments Eosinophils # (test code 0.4 See_Comment [A utomated message] The = Eosinophils #) system whic h generated this result tra nsmitted reference range : <=0.5. The reference r christiano was not used to int erpret this result as normal/abnormal . [facility]FP[facility]356[facility] 09:[facility]:00 Test Item Value Reference Range Interpretation Comments WBC (test code = WBC) 6.2 3.7-10.4 [place] [address]-02-28 09:49:00 Test Item Value Reference Range Interpretation Comments RBC (test code = RBC) 3.06 4.20-5.40 [place] [address]-02-28 09:49:00 Test Item Value Reference Range Interpretation Comments Hgb (test code = Hgb) 9.2 12.0-16.0 [place] [address]-02-28 09:49:00 Test Item Value Reference Range Interpretation Comments Hct (test code = Hct) 28.0 36.0-48.0 [place] [address]-02-28 09:49:00 Test Item Value Reference Range Interpretation Comments MCV (test code = MCV) 91.5 80.0-98.0 [place] [address]-02-28 09:49:00 Test Item Value Reference Range Interpretation Comments MCH (test code = MCH) 30.0 pg 27.0-31.0 [place] [address]-02-28 09:49:00 Test Item Value Reference Range Interpretation Comments MCHC (test code = MCHC) 32.7 32.0-36.0 [place] [address]-02-28 09:49:00 Test Item Value Reference Range Interpretation Comments RDW (test code = RDW) 14.1 11.5-14.5 [place] [address]-02-28 09:49:00 Test Item Value Reference Range Interpretation Comments Platelet (test code = Platelet) 136 133-450 [place] 744043-02-28 09:49:00 Test Item Value Reference Range Interpretation Comments MPV (test code = MPV) 7.7 7.4-10.4 [place] 570323-02-28 09:49:00 Test Item Value Reference Range Interpretation Comments Glucose Lvl (test code = Glucose Lvl) 93 70-99 [place] 570323-02-28 09:49:00 Test Item Value Reference Range Interpretation Comments BUN (test code = BUN) 30 7-22 [place] 570323-02-28 09:49:00 Test Item Value Reference Range Interpretation Comments Creatinine Lvl (test code = Creatinine 2.50 0.50-1.40 Lvl) [place] 570323-02-28 09:49:00 Test Item Value Reference Range Interpretation Comments Sodium Lvl (test code = Sodium Lvl) 138 135-145 [place] 570323-02-28 09:49:00 Test Item Value Reference Range Interpretation Comments Potassium Lvl (test code = Potassium 5.1 3.5-5.1 Lvl) [place] 570323-02-28 09:49:00 Test Item Value Reference Range Interpretation Comments Chloride Lvl (test code = Chloride Lvl) 108 95-109 [place] 570323-02-28 09:49:00 Test Item Value Reference Range Interpretation Comments CO2 (test code = CO2) 30 24-32 [place] 570323-02-28 09:49:00 Test Item Value Reference Range Interpretation Comments Calcium Lvl (test code = Calcium Lvl) 8.0 8.5-10.5 [place] 570323-02-28 09:49:00 Test Item Value Reference Range Interpretation Comments AGAP (test code = AGAP) 5.1 10.0-20.0 [place] 570323-02-28 09:49:00 Test Item Value Reference Range Interpretation Comments eGFR (test code = eGFR) 19 [place] [address]-02-28 09:49:00 Test Item Value Reference Range Interpretation Comments Glucose Lvl (test code = Glucose Lvl) 93 70-99 [place] [address]-02-28 09:49:00 Test Item Value Reference Range Interpretation Comments BUN (test code = BUN) 30 7-22 [place] 408583-02-28 09:49:00 Test Item Value Reference Range Interpretation Comments Creatinine Lvl (test code = Creatinine 2.50 0.50-1.40 Lvl) [place] 408583-02-28 09:49:00 Test Item Value Reference Range Interpretation Comments Sodium Lvl (test code = Sodium Lvl) 138 135-145 [place] [address]-02-28 09:49:00 Test Item Value Reference Range Interpretation Comments Potassium Lvl (test code = Potassium 5.1 3.5-5.1 Lvl) [place] [address]-02-28 09:49:00 Test Item Value Reference Range Interpretation Comments Chloride Lvl (test code = Chloride Lvl) 108 95-109 [place] [address]-02-28 09:49:00 Test Item Value Reference Range Interpretation Comments CO2 (test code = CO2) 30 24-32 [facility] CenterRekjeiyXOVORXTHI9787-38-49 09:49:00 Test Item Value Reference Range Interpretation Comments Calcium Lvl (test code = Calcium Lvl) 8.0 8.5-10.5 [facility] CenterRxwnnbnCEYXGSEEJ4564-74-58 09:49:00 Test Item Value Reference Range Interpretation Comments AGAP (test code = AGAP) 5.1 10.0-20.0 [place] 408583-02-28 09:49:00 Test Item Value Reference Range Interpretation Comments eGFR (test code = eGFR) 19 [facility] HospitalGihuxpvFRNTSKCHXM4811-98-21 09:49:00 Test Item Value Reference Range Interpretation Comments Segs (test code = Segs) 49.2 45.0-75.0 [place] 744043-02-28 09:49:00 Test Item Value Reference Range Interpretation Comments Lymphocytes (test code = Lymphocytes) 33.0 20.0-40.0 [place] 744043-02-28 09:49:00 Test Item Value Reference Range Interpretation Comments Monocytes (test code = Monocytes) 10.5 2.0-12.0 [facility] HospitalVskvmutHHYZWCACFQ0759-52-95 09:49:00 Test Item Value Reference Range Interpretation Comments Eosinophils (test code = 6.6 See_Comment [A utomated message] The Eosinophils) system which nerated this result tra nsmitted reference range : <=4.0. The reference r christiano was not used to int erpret this result as normal/abnormal . [facility] HospitalGwgpxodCVEOFOAFXC4575-42-83 09:49:00 Test Item Value Reference Range Interpretation Comments Basophils (test code = 0.7 See_Comment [Aut omated message] The Basophils) system which ge nerated this result tra nsmitted reference range : <=1.0. The reference r christiano was not used to int erpret this result as normal/abnormal . [facility] HospitalBnqoqywCHRWPOUNSN0605-76-84 09:49:00 Test Item Value Reference Range Interpretation Comments Neutrophils # (test code = Neutrophils 3.0 1.5-8.1 #) [facility] HospitalOmrfvwjNSGNTSLKAA5011-94-73 09:49:00 Test Item Value Reference Range Interpretation Comments Lymphocytes # (test code = Lymphocytes 2.0 1.0-5.5 #) [facility] HospitalBewalnvAGZXYUYAKG0159-26-93 09:49:00 Test Item Value Reference Range Interpretation Comments Monocytes # (test code 0.7 See_Comment [Aut omated message] The = Monocytes #) system which generated this result tra nsmitted reference range : <=0.8. The reference r christiano was not used to int erpret this result as normal/abnormal . [place] 744043-02-28 09:49:00 Test Item Value Reference Range Interpretation Comments Eosinophils # (test code 0.4 See_Comment [A utomated message] The = Eosinophils #) system whic h generated this result tra nsmitted reference range : <=0.5. The reference r christiano was not used to int erpret this result as normal/abnormal . [facility] HospitalJovhnefZMSYWTMTLI8664-79-56 09:49:00 Test Item Value Reference Range Interpretation Comments WBC (test code = WBC) 6.2 3.7-10.4 [place] 744043-02-28 09:49:00 Test Item Value Reference Range Interpretation Comments RBC (test code = RBC) 3.06 4.20-5.40 [place] 744043-02-28 09:49:00 Test Item Value Reference Range Interpretation Comments Hgb (test code = Hgb) 9.2 12.0-16.0 [place] 744043-02-28 09:49:00 Test Item Value Reference Range Interpretation Comments Hct (test code = Hct) 28.0 36.0-48.0 [place] 744043-02-28 09:49:00 Test Item Value Reference Range Interpretation Comments MCV (test code = MCV) 91.5 80.0-98.0 [place] 744043-02-28 09:49:00 Test Item Value Reference Range Interpretation Comments MCH (test code = MCH) 30.0 pg 27.0-31.0 [place] 744043-02-28 09:49:00 Test Item Value Reference Range Interpretation Comments MCHC (test code = MCHC) 32.7 32.0-36.0 [place] 744043-02-28 09:49:00 Test Item Value Reference Range Interpretation Comments RDW (test code = RDW) 14.1 11.5-14.5 [place] 744043-02-28 09:49:00 Test Item Value Reference Range Interpretation Comments Platelet (test code = Platelet) 136 133-450 [place] [address]-02-28 09:49:00 Test Item Value Reference Range Interpretation Comments MPV (test code = MPV) 7.7 7.4-10.4 [place] [address]-02-28 09:49:00 Test Item Value Reference Range Interpretation Comments Segs (test code = Segs) 49.2 45.0-75.0 [place] [address]-02-28 09:49:00 Test Item Value Reference Range Interpretation Comments Lymphocytes (test code = Lymphocytes) 33.0 20.0-40.0 [place] [address]-02-28 09:49:00 Test Item Value Reference Range Interpretation Comments Monocytes (test code = Monocytes) 10.5 2.0-12.0 [place] [address]-02-28 09:49:00 Test Item Value Reference Range Interpretation Comments Eosinophils (test code = 6.6 See_Comment [A utomated message] The Eosinophils) system which ge nerated this result tra nsmitted reference range : <=4.0. The reference r christiano was not used to int erpret this result as normal/abnormal . [place] [address]-02-28 09:49:00 Test Item Value Reference Range Interpretation Comments Basophils (test code = 0.7 See_Comment [Aut omated message] The Basophils) system which ge nerated this result tra nsmitted reference range : <=1.0. The reference r christiano was not used to int erpret this result as normal/abnormal . [place] 744043-02-28 09:49:00 Test Item Value Reference Range Interpretation Comments Neutrophils # (test code = Neutrophils 3.0 1.5-8.1 #) [place] [address]-02-28 09:49:00 Test Item Value Reference Range Interpretation Comments Lymphocytes # (test code = Lymphocytes 2.0 1.0-5.5 #) [place] [address]-02-28 09:49:00 Test Item Value Reference Range Interpretation Comments Monocytes # (test code 0.7 See_Comment [Aut omated message] The = Monocytes #) system which generated this result tra nsmitted reference range : <=0.8. The reference r christiano was not used to int erpret this result as normal/abnormal . [facility] HospitalVafcengHZSEKZDYWQ1967-51-84 09:49:00 Test Item Value Reference Range Interpretation Comments Eosinophils # (test code 0.4 See_Comment [A utomated message] The = Eosinophils #) system [employer] generated this result tra nsmitted reference range : <=0.5. The reference r christiano was not used to int erpret this result as normal/abnormal . [facility] HospitalTjgmdndOIUCYKOOAN0297-62-19 09:49:00 Test Item Value Reference Range Interpretation Comments WBC (test code = WBC) 6.2 3.7-10.4 [place] [address]-02-28 09:49:00 Test Item Value Reference Range Interpretation Comments RBC (test code = RBC) 3.06 4.20-5.40 [place] [address]-02-28 09:49:00 Test Item Value Reference Range Interpretation Comments Hgb (test code = Hgb) 9.2 12.0-16.0 [place] 744043-02-28 09:49:00 Test Item Value Reference Range Interpretation Comments Hct (test code = Hct) 28.0 36.0-48.0 [place] 744043-02-28 09:49:00 Test Item Value Reference Range Interpretation Comments MCV (test code = MCV) 91.5 80.0-98.0 [place] [address]-02-28 09:49:00 Test Item Value Reference Range Interpretation Comments MCH (test code = MCH) 30.0 pg 27.0-31.0 [place] 744043-02-28 09:49:00 Test Item Value Reference Range Interpretation Comments MCHC (test code = MCHC) 32.7 32.0-36.0 [place] 744043-02-28 09:49:00 Test Item Value Reference Range Interpretation Comments RDW (test code = RDW) 14.1 11.5-14.5 [place] 744043-02-28 09:49:00 Test Item Value Reference Range Interpretation Comments Platelet (test code = Platelet) 136 133-450 [place] 744043-02-28 09:49:00 Test Item Value Reference Range Interpretation Comments MPV (test code = MPV) 7.7 7.4-10.4 [place] 570323-02-28 09:49:00 Test Item Value Reference Range Interpretation Comments Glucose Lvl (test code = Glucose Lvl) 93 70- [place] 570323-02-28 09:49:00 Test Item Value Reference Range Interpretation Comments BUN (test code = BUN) 30 04-21 [place] 570323-02-28 09:49:00 Test Item Value Reference Range Interpretation Comments Creatinine Lvl (test code = Creatinine 2.50 0.50-1.40 Lvl) [place] 570323-02-28 09:49:00 Test Item Value Reference Range Interpretation Comments Sodium Lvl (test code = Sodium Lvl) 138 135-145 [place] 570323-02-28 09:49:00 Test Item Value Reference Range Interpretation Comments Potassium Lvl (test code = Potassium 5.1 3.5-5.1 Lvl) [place] 570323-02-28 09:49:00 Test Item Value Reference Range Interpretation Comments Chloride Lvl (test code = Chloride Lvl) 108 95-109 [place] 570323-02-28 09:49:00 Test Item Value Reference Range Interpretation Comments CO2 (test code = CO2) 30 24-32 [place] 570323-02-28 09:49:00 Test Item Value Reference Range Interpretation Comments Calcium Lvl (test code = Calcium Lvl) 8.0 8.5-10.5 [place] 570323-02-28 09:49:00 Test Item Value Reference Range Interpretation Comments AGAP (test code = AGAP) 5.1 10.0-20.0 [place] 570323-02-28 09:49:00 Test Item Value Reference Range Interpretation Comments eGFR (test code = eGFR) 19 [place] [address]-02-28 09:49:00 Test Item Value Reference Range Interpretation Comments Glucose Lvl (test code = Glucose Lvl) 93 70-99 [place] 408583-02-28 09:49:00 Test Item Value Reference Range Interpretation Comments BUN (test code = BUN) 30 7- [place] 408583-02-28 09:49:00 Test Item Value Reference Range Interpretation Comments Creatinine Lvl (test code = Creatinine 2.50 0.50-1.40 Lvl) [facility] CenterKjdgtnbGTJSABCBC9318-50-12 09:49:00 Test Item Value Reference Range Interpretation Comments Sodium Lvl (test code = Sodium Lvl) 138 135-145 [facility] CenterIurpgdbOWYNAEQXD8760-70-14 09:49:00 Test Item Value Reference Range Interpretation Comments Potassium Lvl (test code = Potassium 5.1 3.5-5.1 Lvl) [facility] CenterLagkfipCWZCSGJIU7920-10-29 09:49:00 Test Item Value Reference Range Interpretation Comments Chloride Lvl (test code = Chloride Lvl) 108 95-109 [place] 408583-02-28 09:49:00 Test Item Value Reference Range Interpretation Comments CO2 (test code = CO2) 30 24-32 [facility] CenterNdvqyuzLMFTEEBCM4808-99-56 09:49:00 Test Item Value Reference Range Interpretation Comments Calcium Lvl (test code = Calcium Lvl) 8.0 8.5-10.5 [place] 408583-02-28 09:49:00 Test Item Value Reference Range Interpretation Comments AGAP (test code = AGAP) 5.1 10.0-20.0 [facility] CenterJixqmjqDDATWBYIY2672-59-21 09:49:00 Test Item Value Reference Range Interpretation Comments eGFR (test code = eGFR) 19 [facility] HospitalPzpixnlGDJXVRTCJI1384-55-70 09:49:00 Test Item Value Reference Range Interpretation Comments Segs (test code = Segs) 49.2 45.0-75.0 [facility] HospitalXncfvbyOOZKOGYFML4517-75-55 09:49:00 Test Item Value Reference Range Interpretation Comments Lymphocytes (test code = Lymphocytes) 33.0 20.0-40.0 [place] 744043-02-28 09:49:00 Test Item Value Reference Range Interpretation Comments Monocytes (test code = Monocytes) 10.5 2.0-12.0 [place] 744043-02-28 09:49:00 Test Item Value Reference Range Interpretation Comments Eosinophils (test code = 6.6 See_Comment [A utomated message] The Eosinophils) system which ge nerated this result tra nsmitted reference range : <=4.0. The reference r christiano was not used to int erpret this result as normal/abnormal . [facility] HospitalBgkyfwiLHJUOYCJZH2856-35-37 09:49:00 Test Item Value Reference Range Interpretation Comments Basophils (test code = 0.7 See_Comment [Aut omated message] The Basophils) system which ge nerated this result tra nsmitted reference range : <=1.0. The reference r christiano was not used to int erpret this result as normal/abnormal . [place] 744043-02-28 09:49:00 Test Item Value Reference Range Interpretation Comments Neutrophils # (test code = Neutrophils 3.0 1.5-8.1 #) [facility] HospitalBzrrnteLBCMDJARFA2975-72-82 09:49:00 Test Item Value Reference Range Interpretation Comments Lymphocytes # (test code = Lymphocytes 2.0 1.0-5.5 #) [place] 744043-02-28 09:49:00 Test Item Value Reference Range Interpretation Comments Monocytes # (test code 0.7 See_Comment [Aut omated message] The = Monocytes #) system which generated this result tra nsmitted reference range : <=0.8. The reference r christiano was not used to int erpret this result as normal/abnormal . [place] 744043-02-28 09:49:00 Test Item Value Reference Range Interpretation Comments Eosinophils # (test code 0.4 See_Comment [A utomated message] The = Eosinophils #) system whic h generated this result tra nsmitted reference range : <=0.5. The reference r christiano was not used to int erpret this result as normal/abnormal . [facility] HospitalUrcvifkLHYBNSRPHD8032-92-93 09:49:00 Test Item Value Reference Range Interpretation Comments WBC (test code = WBC) 6.2 3.7-10.4 [place] 744043-02-28 09:49:00 Test Item Value Reference Range Interpretation Comments RBC (test code = RBC) 3.06 4.20-5.40 [place] [address]-02-28 09:49:00 Test Item Value Reference Range Interpretation Comments Hgb (test code = Hgb) 9.2 12.0-16.0 [place] 744043-02-28 09:49:00 Test Item Value Reference Range Interpretation Comments Hct (test code = Hct) 28.0 36.0-48.0 [place] 744043-02-28 09:49:00 Test Item Value Reference Range Interpretation Comments MCV (test code = MCV) 91.5 80.0-98.0 [facility]IqdzzoeUKVDQVQMLK2064-07-12 09:49:00 Test Item Value Reference Range Interpretation Comments MCH (test code = MCH) 30.0 pg 27.0-31.0 [facility]GfetujzWQMVSJ0157-04-48 14:44:19 Test Item Value Reference Range Interpretation [...] [facility] BudaIhtssvxMIKEBC6352-11-80 14:44:19 Test Item Value Reference Range Interpretation [...] [facility] BudaNxrtlopFXJFBL3317-21-19 14:44:19 Test Item Value Reference Range Interpretation [...] [facility] BudaInjvtdwSMCDCA5227-63-54 14:44:19 Test Item Value Reference Range Interpretation [...] [facility] BudaXzzuffvNPIJUH4208-86-20 14:44:19 Test Item Value Reference Range Interpretation [...] [facility] BudaLnahtqeAWCNUE3166-09-86 14:44:19 Test Item Value Reference Range Interpretation [...] [facility] BudaHpyyaqxFFLCJY3563-60-90 14:44:19 Test Item Value Reference Range Interpretation [...] [facility]vineWcvhtiyDGXOAB6786-60-66 14:44:19 Test Item Value Reference Range Interpretation [...] Additional severe spinal canal narrowing at C6-7. [facility]SlscqcyVEMFOUGGCU6950-27-77 10:40:00 Test Item Value Reference Range Interpretation Comments Coronavirus (COVID-19) Not Detected (11/27/22 JONATHAN (test code = 4:40 AM) Coronavirus (COVID-19) JONATHAN) [place] 033513-02-27 10:40:00 Test Item Value Reference Range Interpretation Comments Coronavirus (COVID-19) Not Detected (11/27/22 JONATHAN (test code = 4:40 AM) Coronavirus (COVID-19) JONATHAN) [place] 033513-02-27 10:40:00 Test Item Value Reference Range Interpretation Comments Coronavirus (COVID-19) Not Detected (11/27/22 JONATHAN (test code = 4:40 AM) Coronavirus (COVID-19) JONATHAN) [place] [address]-02-27 10:40:00 Test Item Value Reference Range Interpretation Comments Coronavirus (COVID-19) Not Detected (11/27/22 JONATHAN (test code = 4:40 AM) Coronavirus (COVID-19) JONATHAN) [place] [address]-02-27 10:40:00 Test Item Value Reference Range Interpretation Comments Coronavirus (COVID-19) Not Detected (11/27/22 JONATHAN (test code = 4:40 AM) Coronavirus (COVID-19) JONATHAN) [place] [address]-02-27 10:40:00 Test Item Value Reference Range Interpretation Comments Coronavirus (COVID-19) Not Detected (11/27/22 JONATHAN (test code = 4:40 AM) Coronavirus (COVID-19) JONATHAN) [place] [address]-02-27 10:40:00 Test Item Value Reference Range Interpretation Comments Coronavirus (COVID-19) Not Detected (11/27/22 JONATHAN (test code = 4:40 AM) Coronavirus (COVID-19) JONATHAN) [place] [address]-02-27 10:40:00 Test Item Value Reference Range Interpretation Comments Coronavirus (COVID-19) Not Detected (11/27/22 JONATHAN (test code = 4:40 AM) Coronavirus (COVID-19) JONATHAN) [place] [address]-02-27 10:40:00 Test Item Value Reference Range Interpretation Comments Coronavirus (COVID-19) Not Detected (11/27/22 JONATHAN (test code = 4:40 AM) Coronavirus (COVID-19) JONATHAN) [place] [address]-02-27 10:40:00 Test Item Value Reference Range Interpretation Comments Coronavirus (COVID-19) Not Detected (11/27/22 JONATHAN (test code = 4:40 AM) Coronavirus (COVID-19) JONATHAN) [place] [address]-02-27 10:40:00 Test Item Value Reference Range Interpretation Comments Coronavirus (COVID-19) Not Detected (11/27/22 JONATHAN (test code = 4:40 AM) Coronavirus (COVID-19) JONATHAN) [place] [address]-02-27 10:40:00 Test Item Value Reference Range Interpretation Comments Coronavirus (COVID-19) Not Detected (11/27/22 JONATHAN (test code = 4:40 AM) Coronavirus (COVID-19) JONATHAN) [facility] SystemXrmnmghWQFHLAGGHU4459-76-95 10:40:00 Test Item Value Reference Range Interpretation Comments Coronavirus (COVID-19) Not Detected (11/27/22 JONATHAN (test code = 4:40 AM) Coronavirus (COVID-19) JONATHAN) [facility] SystemJnoulykBPLKKIBJNS7264-72-51 10:40:00 Test Item Value Reference Range Interpretation Comments Coronavirus (COVID-19) Not Detected (11/27/22 JONATHAN (test code = 4:40 AM) Coronavirus (COVID-19) JONATHAN) [facility] SystemDxhjsflNDLZLWXEHO1236-53-52 10:40:00 Test Item Value Reference Range Interpretation Comments Coronavirus (COVID-19) Not Detected (11/27/22 JONATHAN (test code = 4:40 AM) Coronavirus (COVID-19) JONATHAN) [facility]jBSRPDIHNQN7343-63-25 10:40:00 Test Item Value Reference Range Interpretation Comments Coronavirus (COVID-19) Not Detected (11/27/22 JONATHAN (test code = 4:40 AM) Coronavirus (COVID-19) JONATHAN) [place] [id number] 07:58:03 Test Item Value Reference Range Interpretation [...] 11/27/2022 2:31 by Urbano Ashton MD [facility]udaYdxojnkKQWOEF0900-00-75 07:58:03 Test Item Value Reference Range Interpretation [...] 11/27/2022 2:31 by Urbano Ashton MD [facility] BudaTsvkgynUVFATA8983-32-25 07:58:03 Test Item Value Reference Range Interpretation [...] 11/27/2022 2:31 by Urbano Ashton MD [facility] GrapevineCvkqibiGKFSXW4434-28-76 07:58:03 Test Item Value Reference Range Interpretation [...] 11/27/2022 2:31 by Urbano Ashton MD [facility] GrapevineTfvhtfnIEXXMS8215-01-15 07:58:03 Test Item Value Reference Range Interpretation [...] 11/27/2022 2:31 by Urbano Ashton MD [facility] GrapevineZljleenLFYRXR7160-18-85 07:58:03 Test Item Value Reference Range Interpretation [...] at 11/27/2022 2:31 by Urbano Ashton MD [facility] MarshallUhkqzpiOVIDUD1466-78-26 07:58:03 Test Item Value Reference Range Interpretation [...] 11/27/2022 2:31 by Urbano Ashton MD [facility] BudaVdmvaqlRSBWMB2345-04-60 07:58:03 Test Item Value Reference Range Interpretation [...] at 11/27/2022 2:31 by Urbano Ashton MD [employer] [id number] 07:22:00 Test Item Value Reference Range Interpretation Comments ABO/Rh (test code = ABO/Rh) O POS [employer] [id number] 07:22:00 Test Item Value Reference Range Interpretation Comments Antibody Scrn (test Negative (11/27/22 1:22 code = Antibody Scrn) AM) [employer] [id number] 07:22:00 Test Item Value Reference Range Interpretation Comments ABO/Rh (test code = ABO/Rh) O POS [employer] [id number] 07:22:00 Test Item Value Reference Range Interpretation Comments Antibody Scrn (test Negative (11/27/22 1:22 code = Antibody Scrn) AM) [facility] [employer] [id number] 07:22:00 Test Item Value Reference Range Interpretation Comments ABO/Rh (test code = ABO/Rh) O POS [facility] [employer] [id number] 07:22:00 Test Item Value Reference Range Interpretation Comments Antibody Scrn (test Negative (11/27/22 1:22 code = Antibody Scrn) AM) [facility] [employer] [id number] 07:22:00 Test Item Value Reference Range Interpretation Comments ABO/Rh (test code = ABO/Rh) O [facility] [employer] [id number] 07:22:00 Test Item Value Reference Range Interpretation Comments Antibody Scrn (test Negative (11/27/22 1:22 code = Antibody Scrn) AM) [facility] [employer] [id number] 07:22:00 Test Item Value Reference Range Interpretation Comments ABO/Rh (test code = ABO/Rh) O [facility] [employer] [id number] 07:22:00 Test Item Value Reference Range Interpretation Comments Antibody Scrn (test Negative (11/27/22 1:22 code = Antibody Scrn) AM) [facility] [employer] [id number] 07:22:00 Test Item Value Reference Range Interpretation Comments ABO/Rh (test code = ABO/Rh) O [facility] [employer] [id number] 07:22:00 Test Item Value Reference Range Interpretation Comments Antibody Scrn (test Negative (11/27/22 1:22 code = Antibody Scrn) AM) [facility] [employer] [id number] 07:22:00 Test Item Value Reference Range Interpretation Comments ABO/Rh (test code = ABO/Rh) O [facility] [employer] [id number] 07:22:00 Test Item Value Reference Range Interpretation Comments Antibody Scrn (test Negative (11/27/22 1:22 code = Antibody Scrn) AM) [facility] [employer] [id number] 07:22:00 Test Item Value Reference Range Interpretation Comments ABO/Rh (test code = ABO/Rh) O [facility] [employer] [id number] 07:22:00 Test Item Value Reference Range Interpretation Comments Antibody Scrn (test Negative (11/27/22 1:22 code = Antibody Scrn) AM) [facility] [employer] [id number] 07:22:00 Test Item Value Reference Range Interpretation Comments ABO/Rh (test code = ABO/Rh) O POS [facility] [employer] [id number] 07:22:00 Test Item Value Reference Range Interpretation Comments Antibody Scrn (test Negative (11/27/22 1:22 code = Antibody Scrn) AM) [facility] [employer] [id number] 07:22:00 Test Item Value Reference Range Interpretation Comments ABO/Rh (test code = ABO/Rh) O POS [facility] [employer] [id number] 07:22:00 Test Item Value Reference Range Interpretation Comments Antibody Scrn (test Negative (11/27/22 1:22 code = Antibody Scrn) AM) [facility] [employer] [id number] 07:22:00 Test Item Value Reference Range Interpretation Comments ABO/Rh (test code = ABO/Rh) O [facility] [employer] [id number] 07:22:00 Test Item Value Reference Range Interpretation Comments Antibody Scrn (test Negative (11/27/22 1:22 code = Antibody Scrn) AM) [facility] [employer] [id number] 07:22:00 Test Item Value Reference Range Interpretation Comments ABO/Rh (test code = ABO/Rh) O [facility] [employer] [id number] 07:22:00 Test Item Value Reference Range Interpretation Comments Antibody Scrn (test Negative (11/27/22 1:22 code = Antibody Scrn) AM) [facility] [employer] [id number] 07:22:00 Test Item Value Reference Range Interpretation Comments ABO/Rh (test code = ABO/Rh) O [facility] [employer] [id number] 07:22:00 Test Item Value Reference Range Interpretation Comments Antibody Scrn (test Negative (11/27/22 1:22 code = Antibody Scrn) AM) [facility] [employer] [id number] 07:22:00 Test Item Value Reference Range Interpretation Comments ABO/Rh (test code = ABO/Rh) O POS [facility] [id number] 07:22:00 Test Item Value Reference Range Interpretation Comments Antibody Scrn (test Negative (11/27/22 1:22 code = Antibody Scrn) AM) [facility] [id number] 07:22:00 Test Item Value Reference Range Interpretation Comments ABO/Rh (test code = ABO/Rh) O POS [facility] [id number] 07:22:00 Test Item Value Reference Range Interpretation Comments Antibody Scrn (test Negative (11/27/22 1:22 code = Antibody Scrn) AM) [facility] [id number] 07:22:00 Test Item Value Reference Range Interpretation Comments ABO/Rh (test code = ABO/Rh) O POS [facility] [id number] 07:22:00 Test Item Value Reference Range Interpretation Comments Antibody Scrn (test Negative (11/27/22 1:22 code = Antibody Scrn) AM) [facility]rapevineEmbshmtBPZYXA3382-73-83 06:55:28 Test Item Value Reference Range Interpretation Comments RADRPT (test code EXAM: CT CERVICAL SPINE = RADRPT) WITHOUT CONTRASTDATE: 11/27/2022 0:49INDICATION: Status post fall, pain after trauma. Following trauma transfer for higher level of care request for outside film interpretation CT cervical spine without contrast performed [facility]20[facility] None.TECHNIQUE: Volumetric CT of the cervical spine is acquired without contrast. Axial, coronal and sagittal images are provided. IV contrast: None.DLP: Refer to CT protocol formUT SECTION: ERFINDINGS: The spine is imaged from the skull base to the level of T2/T3.Door Machine Operator: Noncontributory.Bones:There is generalized decreased bone mineral [...] [facility] BudaCxmgbywOZTKQJ9700-62-55 06:55:28 Test Item Value Reference Range Interpretation Comments RADRPT (test code EXAM: CT CERVICAL SPINE = RADRPT) WITHOUT CONTRASTDATE: 11/27/2022 0:49INDICATION: Status post fall, pain after trauma. Following trauma transfer for higher level of care request for outside film interpretation CT cervical spine without contrast performed 11/26/2022 [facility] None.TECHNIQUE: Volumetric CT of the cervical spine is acquired without contrast. Axial, coronal and sagittal images are provided. IV contrast: None.DLP: Refer to CT protocol formUT SECTION: ERFINDINGS: The spine is imaged from the skull base to the level of T2/T3.Door Machine Operator: Noncontributory.Bones:There is generalized decreased bone mineral [...] [facility] [id number] 06:55:28 Test Item Value Reference Range Interpretation Comments RADRPT (test code EXAM: CT CERVICAL SPINE = RADRPT) WITHOUT CONTRASTDATE: 11/27/2022 0:49INDICATION: Status post fall, pain after trauma. Following trauma transfer for higher level of care request for outside film interpretation CT cervical spine without contrast performed 11/26/2022 [facility] None.TECHNIQUE: Volumetric CT of the cervical spine is acquired without contrast. Axial, coronal and sagittal images are provided. IV contrast: None.DLP: Refer to CT protocol formUT SECTION: ERFINDINGS: The spine is imaged from the skull base to the level of T2/T3.Door Machine Operator: Noncontributory.Bones:There is generalized decreased bone mineral [...] [facility] [id number] 06:55:28 Test Item Value Reference Range Interpretation Comments RADRPT (test code EXAM: CT CERVICAL SPINE = RADRPT) WITHOUT CONTRASTDATE: 11/27/2022 0:49INDICATION: Status post fall, pain after trauma. Following trauma transfer for higher level of care request for outside film interpretation CT cervical spine without contrast performed 11/26/2022 [facility] None.TECHNIQUE: Volumetric CT of the cervical spine is acquired without contrast. Axial, coronal and sagittal images are provided. IV contrast: None.DLP: Refer to CT protocol formUT SECTION: ERFINDINGS: The spine is imaged from the skull base to the level of T2/T3.Door Machine Operator: Noncontributory.Bones:There is generalized decreased bone mineral [...] [facility] [id number] 06:55:28 Test Item Value Reference Range Interpretation Comments RADRPT (test code EXAM: CT CERVICAL SPINE = RADRPT) WITHOUT CONTRASTDATE: 11/27/2022 0:49INDICATION: Status post fall, pain after trauma. Following trauma transfer for higher level of care request for outside film interpretation CT cervical spine without contrast performed 11/26/2022 [facility] None.TECHNIQUE: Volumetric CT of the cervical spine is acquired without contrast. Axial, coronal and sagittal images are provided. IV contrast: None.DLP: Refer to CT protocol formUT SECTION: ERFINDINGS: The spine is imaged from the skull base to the level of T2/T3.Door Machine Operator: Noncontributory.Bones:There is generalized decreased bone mineral [...] [facility] [id number] 06:55:28 Test Item Value Reference Range Interpretation Comments RADRPT (test code EXAM: CT CERVICAL SPINE = RADRPT) WITHOUT CONTRASTDATE: 11/27/2022 0:49INDICATION: Status post fall, pain after trauma. Following trauma transfer for higher level of care request for outside film interpretation CT cervical spine without contrast performed 11/26/2022 [facility] 20[facility] None.TECHNIQUE: Volumetric CT of the cervical spine is acquired without contrast. Axial, coronal and sagittal images are provided. IV contrast: None.DLP: Refer to CT protocol formUT SECTION: ERFINDINGS: The spine is imaged from the skull base to the level of T2/T3.Door Machine Operator: Noncontributory.Bones:There is generalized decreased bone mineral [...] [facility] [id number] 06:55:28 Test Item Value Reference Range Interpretation Comments RADRPT (test code EXAM: CT CERVICAL SPINE = RADRPT) WITHOUT CONTRASTDATE: 11/27/2022 0:49INDICATION: Status post fall, pain after trauma. Following trauma transfer for higher level of care request for outside film interpretation CT cervical spine without contrast performed 11/26/2022 [facility] 2044 [facility] None.TECHNIQUE: Volumetric CT of the cervical spine is acquired without contrast. Axial, coronal and sagittal images are provided. IV contrast: None.DLP: Refer to CT protocol formUT SECTION: ERFINDINGS: The spine is imaged from the skull base to the level of T2/T3.Door Machine Operator: Noncontributory.Bones:There is generalized decreased bone mineral [...] [facility] [id number] 06:55:28 Test Item Value Reference Range Interpretation Comments RADRPT (test code EXAM: CT CERVICAL SPINE = RADRPT) WITHOUT CONTRASTDATE: 11/27/2022 0:49INDICATION: Status post fall, pain after trauma. Following trauma transfer for higher level of care request for outside film interpretation CT cervical spine without contrast performed 11/26/2022 at 2044 [facility]: None.TECHNIQUE: Volumetric CT of the cervical spine is acquired without contrast. Axial, coronal and sagittal images are provided. IV contrast: None.DLP: Refer to CT protocol formUT SECTION: ERFINDINGS: The spine is imaged from the skull base to the level of T2/T3.Door Machine Operator: Noncontributory.Bones:There is generalized decreased bone mineral [...] calcifications are present.6. Agree with outside report. [place] 570323-02-27 06:27:00 Test Item Value Reference Range Interpretation Comments Glucose Lvl (test code = Glucose Lvl) 85 70-99 [place] [address]-02-27 06:27:00 Test Item Value Reference Range Interpretation Comments BUN (test code = BUN) 28 7-22 [place] 570323-02-27 06:27:00 Test Item Value Reference Range Interpretation Comments Creatinine Lvl (test code = Creatinine 2.19 0.50-1.40 Lvl) [place] 570323-02-27 06:27:00 Test Item Value Reference Range Interpretation Comments Sodium Lvl (test code = Sodium Lvl) 143 135-145 [place] 570323-02-27 06:27:00 Test Item Value Reference Range Interpretation Comments Potassium Lvl (test code = Potassium 4.3 3.5-5.1 Lvl) [place] 570323-02-27 06:27:00 Test Item Value Reference Range Interpretation Comments Chloride Lvl (test code = Chloride Lvl) 110 95-109 [place] 570323-02-27 06:27:00 Test Item Value Reference Range Interpretation Comments CO2 (test code = CO2) 27 24-32 [place] [address]-02-27 06:27:00 Test Item Value Reference Range Interpretation Comments Calcium Lvl (test code = Calcium Lvl) 8.1 8.5-10.5 [place] 570323-02-27 06:27:00 Test Item Value Reference Range Interpretation Comments AGAP (test code = AGAP) 10.3 10.0-20.0 [place] 570323-02-27 06:27:00 Test Item Value Reference Range Interpretation Comments eGFR (test code = eGFR) 22 [place] 570323-02-27 06:27:00 Test Item Value Reference Range Interpretation Comments Total Protein (test code = Total 6.6 6.4-8.4 Protein) [place] 570323-02-27 06:27:00 Test Item Value Reference Range Interpretation Comments Albumin Lvl (test code = Albumin Lvl) 3.0 3.5-5.0 [place] 570323-02-27 06:27:00 Test Item Value Reference Range Interpretation Comments Globulin (test code = Globulin) 3.6 2.7-4.2 [place] 570323-02-27 06:27:00 Test Item Value Reference Range Interpretation Comments A/G Ratio (test code = A/G Ratio) 0.8 1 0.7-1.6 [place] 570323-02-27 06:27:00 Test Item Value Reference Range Interpretation Comments ALANINE AMINOTRANSFERASE 21 See_Comment [A utomated message] (test code = ALANINE The sys tem which AMINOTRANSFERASE) generated this result transmitted ref erence range: <=65. Th e reference range was not used to int erpret this result as normal/abnormal . [facility]udaPayDiv[facility] [id number] 06:27:00 Test Item Value Reference Range Interpretation Comments AST (test code = AST) 17 See_Comment [Auto mated message] The system which ge nerated this result transmit sheba reference range : <=37. The reference range was not used to interpr et this result as edy l/abnormal. [facility]Pay[facility] [id number] 06:27:00 Test Item Value Reference Range Interpretation Comments Alk Phos (test code = Alk Phos) 84 39-136 [facility]Pay[facility] [id number] 06:27:00 Test Item Value Reference Range Interpretation Comments Bili Total (test code = Bili Total) 0.3 0.2-1.3 [facility]Pay[facility] [id number] 06:27:00 Test Item Value Reference Range Interpretation Comments Bili Direct (test code no gt See_Comment [Aut omated message] The = Bili Direct) system which generated this result tra nsmitted reference range : <=0.3. The reference r christiano was not used to int erpret this result as edy l/abnormal. [facility]Pay[facility] [id number] 06:27:00 Test Item Value Reference Range Interpretation Comments Bili Indirect Unable to See_Comment [Automated (test code = Bili Calculate message] T he system Indirect) which generated this result transmitted reference range : <=1.0. The reference range was not used to interpret this result as normal/abnormal . [facility]2023-02-27 06:27:00 Test Item Value Reference Range Interpretation Comments Lactic Acid Lvl (test code = Lactic 0.5 0.5-2.2 Acid Lvl) [facility] CenterAuybltaQVEHFMYYE7017-92-23 06:27:00 Test Item Value Reference Range Interpretation Comments Total Protein (test code = Total 6.6 6.4-8.4 Protein) [facility] CenterVppulxhCXYBFZOIY7241-80-59 06:27:00 Test Item Value Reference Range Interpretation Comments Albumin Lvl (test code = Albumin Lvl) 3.0 3.5-5.0 [place] 408583-02-27 06:27:00 Test Item Value Reference Range Interpretation Comments Globulin (test code = Globulin) 3.6 2.7-4.2 [facility] CenterZhraukeTCQUHMJLR3829-28-77 06:27:00 Test Item Value Reference Range Interpretation Comments A/G Ratio (test code = A/G Ratio) 0.8 1 0.7-1.6 [place] 43[address]-02-27 06:27:00 Test Item Value Reference Range Interpretation Comments ALANINE AMINOTRANSFERASE 21 See_Comment [A utomated message] (test code = ALANINE The sys tem which AMINOTRANSFERASE) generated this result transmitted ref erence range: <=65. Th e reference range was not used to int erpret this result as normal/abnormal . [facility] CenterVeubvixOKBSYSVFE9808-87-16 06:27:00 Test Item Value Reference Range Interpretation Comments AST (test code = AST) 17 See_Comment [Auto mated message] The system which ge nerated this result transmit sheba reference range : <=37. The reference range was not used to interpr et this result as edy l/abnormal. [facility] CenterYvailpuDKSWLEFZE8588-02-36 06:27:00 Test Item Value Reference Range Interpretation Comments Alk Phos (test code = Alk Phos) 84 39-136 [facility] CenterWlfgjhtASQRJMWWA2938-62-57 06:27:00 Test Item Value Reference Range Interpretation Comments Bili Total (test code = Bili Total) 0.3 0.2-1.3 [facility] CenterMkjflnxLMIJATOGO8017-71-50 06:27:00 Test Item Value Reference Range Interpretation Comments Bili Direct (test code no gt See_Comment [Aut omated message] The = [employer] Direct) system which generated this result tra nsmitted reference range : <=0.3. The reference r christiano was not used to int erpret this result as edy l/abnormal. [facility] CenterRtmkyixUKMXGKLNK5155-66-88 06:27:00 Test Item Value Reference Range Interpretation Comments Bili Indirect Unable to See_Comment [Automated (test code = Bili Calculate message] T he system Indirect) which generated this result transmitted reference range : <=1.0. The reference range was not used to interpret this result as normal/abnormal . [facility] CenterCkhavilDUNEDXPAP2335-75-05 06:27:00 Test Item Value Reference Range Interpretation Comments pH Justin (test code = pH Justin) 7.29 1 7.28-7.42 [facility] CenterLxwmzgfVQIIMNEXW6477-42-63 06:27:00 Test Item Value Reference Range Interpretation Comments pCO2 Justin (test code = pCO2 Justin) 65 38-52 [facility] CenterIhrpiigFSXEERLOU8170-47-40 06:27:00 Test Item Value Reference Range Interpretation Comments pO2 Justin (test code = pO2 Justin) 37 20-49 [facility] CenterIwrmnbxFOBOUNWDA1850-61-93 06:27:00 Test Item Value Reference Range Interpretation Comments HCO3 Justni (test code = HCO3 Justin) 31 22-26 [facility] CenterZyyvzimFLJSJGKQX1920-18-77 06:27:00 Test Item Value Reference Range Interpretation Comments BE Justin (test code = BE Justin) 3 -2-2 [facility] CenterXupzbhdNPZIOBLFL9274-00-73 06:27:00 Test Item Value Reference Range Interpretation Comments O2 Sat Justin (calc) (test code = O2 Sat 63.0 40.0-70.0 Justin (calc)) [facility] CenterYqtvfifOZINOEEYV8596-25-78 06:27:00 Test Item Value Reference Range Interpretation Comments Temp Justin (test code = Temp Justin) 37.0 [facility] CenterDlvppxrDINNJQSHY5725-88-15 06:27:00 Test Item Value Reference Range Interpretation Comments Lactic Acid Lvl (test code = Lactic 0.5 0.5-2.2 Acid Lvl) [facility] CenterEpfbuelQWDDNLCHA7741-34-35 06:27:00 Test Item Value Reference Range Interpretation Comments TSH (test code = TSH) 0.403 0.360-3.740 [place] 744043-02-27 06:27:00 Test Item Value Reference Range Interpretation Comments WBC X 10x3 (test code = WBC X 10x3) 5.9 3.7-10.4 [place] 744043-02-27 06:27:00 Test Item Value Reference Range Interpretation Comments RBC X 10x6 (test code = RBC X 10x6) 3.67 4.20-5.40 [place] 744043-02-27 06:27:00 Test Item Value Reference Range Interpretation Comments Hgb (test code = Hgb) 10.7 12.0-16.0 [place] 744043-02-27 06:27:00 Test Item Value Reference Range Interpretation Comments Hct (test code = Hct) 33.5 36.0-48.0 [place] 744043-02-27 06:27:00 Test Item Value Reference Range Interpretation Comments MCV (test code = MCV) 91.4 80.0-98.0 [place] 744043-02-27 06:27:00 Test Item Value Reference Range Interpretation Comments MCH (test code = MCH) 29.3 pg 27.0-31.0 [facility]inlzriZPTLMEPYOD8089-16-14 06:27:00 Test Item Value Reference Range Interpretation Comments MCHC (test code = MCHC) 32.0 32.0-36.0 [facility] HospitalCptoymlSRVGWROTTU3724-06-89 06:27:00 Test Item Value Reference Range Interpretation Comments RDW (test code = RDW) 13.7 11.5-14.5 [place] 744043-02-27 06:27:00 Test Item Value Reference Range Interpretation Comments Platelet (test code = Platelet) 139 133-450 [facility] HospitalWnjlwgnRNNHZWTDBS3910-04-00 06:27:00 Test Item Value Reference Range Interpretation Comments MPV (test code = MPV) 7.5 7.4-10.4 [place] [address]-02-27 06:27:00 Test Item Value Reference Range Interpretation Comments ACT (TEG) Rapid (test code = ACT (TEG) 121 s 86-118 Rapid) [place] 744043-02-27 06:27:00 Test Item Value Reference Range Interpretation Comments Split Point Rapid (test code = Split 0.6 min Point Rapid) [place] [address]-02-27 06:27:00 Test Item Value Reference Range Interpretation Comments R-time Rapid (test code = R-time 0.8 min 0.4-0.7 Rapid) [place] [address]-02-27 06:27:00 Test Item Value Reference Range Interpretation Comments K-time Rapid (test code = K-time 0.8 min 0.6-2.3 Rapid) [place] [address]-02-27 06:27:00 Test Item Value Reference Range Interpretation Comments Angle Rapid (test code = Angle 79 degrees 64-80 Rapid) [place] [address]-02-27 06:27:00 Test Item Value Reference Range Interpretation Comments Max Amplitude Rapid (test code = Max 71 mm 52-71 Amplitude Rapid) [place] [address]-02-27 06:27:00 Test Item Value Reference Range Interpretation Comments G-value Rapid (test code = G-value 12.1 5.0-11.6 Rapid) [place] [address]-02-27 06:27:00 Test Item Value Reference Range Interpretation Comments Estimated % Lysis Rapid 0.0 See_Comment [Au tomated message] The (test code = Estimated syste m which generated % Lysis Rapid) this result t ransmitted reference range : <=7.5. The reference r christiano was not used to int erpret this result as normal/abnormal . [place]4043-02-27 06:27:00 Test Item Value Reference Range Interpretation Comments RBC Morph (test code = Normal (11/27/22 12:27 RBC Morph) AM) [place] [address]-02-27 06:27:00 Test Item Value Reference Range Interpretation Comments Plt Morph (test code = Normal (11/27/22 12:27 Plt Morph) AM) [place] [address]-02-27 06:27:00 Test Item Value Reference Range Interpretation Comments Segs (test code = Segs) 60.1 45.0-75.0 [place] [address]-02-27 06:27:00 Test Item Value Reference Range Interpretation Comments Lymphocytes (test code = Lymphocytes) 23.9 20.0-40.0 [place] [address]-02-27 06:27:00 Test Item Value Reference Range Interpretation Comments Monocytes (test code = Monocytes) 9.6 2.0-12.0 [place] [address]-02-27 06:27:00 Test Item Value Reference Range Interpretation Comments Eosinophils (test code = 5.2 See_Comment [A utomated message] The Eosinophils) system which ge nerated this result tra nsmitted reference range : <=4.0. The reference r christiano was not used to int erpret this result as normal/abnormal . [place] 744043-02-27 06:27:00 Test Item Value Reference Range Interpretation Comments Basophils (test code = 1.2 See_Comment [Aut omated message] The Basophils) system which ge nerated this result tra nsmitted reference range : <=1.0. The reference r christiano was not used to int erpret this result as normal/abnormal . [place] 744043-02-27 06:27:00 Test Item Value Reference Range Interpretation Comments Neutrophils # (test code = Neutrophils 3.5 1.5-8.1 #) [place] 744043-02-27 06:27:00 Test Item Value Reference Range Interpretation Comments Lymphocytes # (test code = Lymphocytes 1.4 1.0-5.5 #) [place] [address]-02-27 06:27:00 Test Item Value Reference Range Interpretation Comments Monocytes # (test code 0.6 See_Comment [Aut omated message] The = Monocytes #) system which generated this result tra nsmitted reference range : <=0.8. The reference r christiano was not used to int erpret this result as normal/abnormal . [place] 744043-02-27 06:27:00 Test Item Value Reference Range Interpretation Comments Eosinophils # (test code 0.3 See_Comment [A utomated message] The = Eosinophils #) system whic h generated this result tra nsmitted reference range : <=0.5. The reference r christiano was not used to int erpret this result as normal/abnormal . [place] 744043-02-27 06:27:00 Test Item Value Reference Range Interpretation Comments Basophils # (test code 0.1 See_Comment [Aut omated message] The = Basophils #) system which generated this result tra nsmitted reference range : <=0.2. The reference r christiano was not used to int erpret this result as normal/abnormal . [facility] Test Item Value Reference Range Interpretation Comments ACT (TEG) Rapid (test code = ACT (TEG) 121 s 86-118 Rapid) [place] 744043-02-27 06:27:00 Test Item Value Reference Range Interpretation Comments Split Point Rapid (test code = Split 0.6 min Point Rapid) [place] 744043-02-27 06:27:00 Test Item Value Reference Range Interpretation Comments R-time Rapid (test code = R-time 0.8 min 0.4-0.7 Rapid) [place] [address]-02-27 06:27:00 Test Item Value Reference Range Interpretation Comments K-time Rapid (test code = K-time 0.8 min 0.6-2.3 Rapid) [place] [address]-02-27 06:27:00 Test Item Value Reference Range Interpretation Comments Angle Rapid (test code = Angle 79 degrees 64-80 Rapid) [place] 744043-02-27 06:27:00 Test Item Value Reference Range Interpretation Comments Max Amplitude Rapid (test code = Max 71 mm 52-71 Amplitude Rapid) [place] [address]-02-27 06:27:00 Test Item Value Reference Range Interpretation Comments G-value Rapid (test code = G-value 12.1 5.0-11.6 Rapid) [place] 744043-02-27 06:27:00 Test Item Value Reference Range Interpretation Comments Estimated % Lysis Rapid 0.0 See_Comment [Au tomated message] The (test code = Estimated syste m which generated % Lysis Rapid) this result t ransmitted reference range : <=7.5. The reference r christiano was not used to int erpret this result as normal/abnormal . [facility]EcpxpbyZRAUQZEUTH5054-69-39 06:27:00 Test Item Value Reference Range Interpretation Comments RBC Morph (test code = Normal (11/27/22 12:27 RBC Morph) AM) [place] 744043-02-27 06:27:00 Test Item Value Reference Range Interpretation Comments Plt Morph (test code = Normal (11/27/22 12:27 Plt Morph) AM) [facility]FIULKZWELW8823[facility]48-29 06:27:00 Test Item Value Reference Range Interpretation Comments Basophils # (test code 0.1 See_Comment [Aut omated message] The = Basophils #) system which generated this result tra nsmitted reference range : <=0.2. The reference r christiano was not used to int erpret this result as normal/abnormal . [place] 570323-02-27 06:27:00 Test Item Value Reference Range Interpretation Comments Glucose Lvl (test code = Glucose Lvl) 85 70-99 [place] 570323-02-27 06:27:00 Test Item Value Reference Range Interpretation Comments BUN (test code = BUN) 28 7-22 [place] 570323-02-27 06:27:00 Test Item Value Reference Range Interpretation Comments Creatinine Lvl (test code = Creatinine 2.19 0.50-1.40 Lvl) [place] 570323-02-27 06:27:00 Test Item Value Reference Range Interpretation Comments Sodium Lvl (test code = Sodium Lvl) 143 135-145 [place] 570323-02-27 06:27:00 Test Item Value Reference Range Interpretation Comments Potassium Lvl (test code = Potassium 4.3 3.5-5.1 Lvl) [place] 570323-02-27 06:27:00 Test Item Value Reference Range Interpretation Comments Chloride Lvl (test code = Chloride Lvl) 110 95-109 [place] 570323-02-27 06:27:00 Test Item Value Reference Range Interpretation Comments CO2 (test code = CO2) 27 24-32 [place] 570323-02-27 06:27:00 Test Item Value Reference Range Interpretation Comments Calcium Lvl (test code = Calcium Lvl) 8.1 8.5-10.5 [place] 570323-02-27 06:27:00 Test Item Value Reference Range Interpretation Comments AGAP (test code = AGAP) 10.3 10.0-20.0 [place] 570323-02-27 06:27:00 Test Item Value Reference Range Interpretation Comments eGFR (test code = eGFR) 22 [place] 570323-02-27 06:27:00 Test Item Value Reference Range Interpretation Comments Total Protein (test code = Total 6.6 6.4-8.4 Protein) [place] [address]-02-27 06:27:00 Test Item Value Reference Range Interpretation Comments Albumin Lvl (test code = Albumin Lvl) 3.0 3.5-5.0 [place] [address]-02-27 06:27:00 Test Item Value Reference Range Interpretation Comments Globulin (test code = Globulin) 3.6 2.7-4.2 [place] [address]-02-27 06:27:00 Test Item Value Reference Range Interpretation Comments A/G Ratio (test code = A/G Ratio) 0.8 1 0.7-1.6 [place] [address]-02-27 06:27:00 Test Item Value Reference Range Interpretation Comments ALANINE AMINOTRANSFERASE 21 See_Comment [A utomated message] (test code = ALANINE The sys tem which AMINOTRANSFERASE) generated this result transmitted ref erence range: <=65. Th e reference range was not used to int erpret this result as normal/abnormal . [facility] [id number] 06:27:00 Test Item Value Reference Range Interpretation Comments AST (test code = AST) 17 See_Comment [Auto mated message] The system which ge nerated this result transmit sheba reference range : <=37. The reference range was not used to interpr et this result as edy l/abnormal. [facility] [id number] 06:27:00 Test Item Value Reference Range Interpretation Comments Alk Phos (test code = Alk Phos) 84 39-136 [place] [address]-02-27 06:27:00 Test Item Value Reference Range Interpretation Comments Bili Total (test code = Bili Total) 0.3 0.2-1.3 [place] [address]-02-27 06:27:00 Test Item Value Reference Range Interpretation Comments Bili Direct (test code no gt See_Comment [Aut omated message] The = Bili Direct) system which generated this result tra nsmitted reference range : <=0.3. The reference r christiano was not used to int erpret this result as edy l/abnormal. [facility] [id number] 06:27:00 Test Item Value Reference Range Interpretation Comments Bili Indirect Unable to See_Comment [Automated (test code = Bili Calculate message] T he system Indirect) which generated this result transmitted reference range : <=1.0. The reference range was not used to interpret this result as normal/abnormal . [facility] Children[facility]zz[facility] LMPUA6923-15-58 06:27:00 Test Item Value Reference Range Interpretation Comments Lactic Acid Lvl (test code = Lactic 0.5 0.5-2.2 Acid Lvl) [facility] CenterPdkiuhaKACVHYMCT1285-11-57 06:27:00 Test Item Value Reference Range Interpretation Comments Total Protein (test code = Total 6.6 6.4-8.4 Protein) [facility] CenterXgiyopzTWNAFNSEE2007-24-89 06:27:00 Test Item Value Reference Range Interpretation Comments Albumin Lvl (test code = Albumin Lvl) 3.0 3.5-5.0 [facility] CenterOyufwlvLTEZIFALN5650-56-39 06:27:00 Test Item Value Reference Range Interpretation Comments Globulin (test code = Globulin) 3.6 2.7-4.2 [facility] BudaWywzmtoQSZDUQXVF2419-84-74 06:27:00 Test Item Value Reference Range Interpretation Comments A/G Ratio (test code = A/G Ratio) 0.8 1 0.7-1.6 [facility] ChildrenXwtqdycWZIVGAEHE9918-63-91 06:27:00 Test Item Value Reference Range Interpretation Comments ALANINE AMINOTRANSFERASE 21 See_Comment [A utomated message] (test code = ALANINE The sys tem which AMINOTRANSFERASE) generated this result transmitted ref erence range: <=65. Th e reference range was not used to int erpret this result as normal/abnormal . [facility] ChildrenGzjhqrlZQNBHKFPG9731-36-95 06:27:00 Test Item Value Reference Range Interpretation Comments AST (test code = AST) 17 See_Comment [Auto mated message] The system which ge nerated this result transmit sheba reference range : <=37. The reference range was not used to interpr et this result as edy l/abnormal. [facility] ChildrenQcsoushTBAGMTRXZ5899-39-33 06:27:00 Test Item Value Reference Range Interpretation Comments Alk Phos (test code = Alk Phos) 84 39-136 [facility] ChildrenPpvzwfnKKDDXGRGU0097-17-45 06:27:00 Test Item Value Reference Range Interpretation Comments Bili Total (test code = Bili Total) 0.3 0.2-1.3 [facility] CenterFnqssdnJSPSXNVVJ0966-61-35 06:27:00 Test Item Value Reference Range Interpretation Comments Bili Direct (test code no gt See_Comment [Aut omated message] The = Bili Direct) system which generated this result tra nsmitted reference range : <=0.3. The reference r christiano was not used to int erpret this result as edy l/abnormal. [facility] CenterTgelvoeDPTKGSMPS0685-40-11 06:27:00 Test Item Value Reference Range Interpretation Comments Bili Indirect Unable to See_Comment [Automated (test code = Bili Calculate message] T he system Indirect) which generated this result transmitted reference range : <=1.0. The reference range was not used to interpret this result as normal/abnormal . [facility] CenterPswdlzhAGNYQCRFN1452-86-03 06:27:00 Test Item Value Reference Range Interpretation Comments pH Justin (test code = pH Justin) 7.29 1 7.28-7.42 [facility] CenterTzhrcitBBIFUHPJE3710-94-09 06:27:00 Test Item Value Reference Range Interpretation Comments pCO2 Justin (test code = pCO2 Justin) 65 38-52 [facility] CenterPvbpmmoKWAKUMRCW0073-61-08 06:27:00 Test Item Value Reference Range Interpretation Comments pO2 Justin (test code = pO2 Justin) 37 20-49 [facility] CenterAtbstuhUDTBMHDLJ1937-33-21 06:27:00 Test Item Value Reference Range Interpretation Comments HCO3 Justin (test code = HCO3 Justin) 31 22-26 [facility] CenterQocviqqHNOFMFPHD8361-07-99 06:27:00 Test Item Value Reference Range Interpretation Comments BE Justin (test code = BE Justin) 3 -2-2 [facility] CenterHxiuqhcFJXJSPWFO7836-27-38 06:27:00 Test Item Value Reference Range Interpretation Comments O2 Sat Justin (calc) (test code = O2 Sat 63.0 40.0-70.0 Justin (calc)) [facility] CenterVcyahsvKMDAQYZFE3238-96-82 06:27:00 Test Item Value Reference Range Interpretation Comments Temp Justin (test code = Temp Justin) 37.0 [facility] CenterGbffzmjNFIEGOZJN8318-82-02 06:27:00 Test Item Value Reference Range Interpretation Comments Lactic Acid Lvl (test code = Lactic 0.5 0.5-2.2 Acid Lvl) [facility] CenterDlvdygpVJKHJZYKC6040-03-51 06:27:00 Test Item Value Reference Range Interpretation Comments TSH (test code = TSH) 0.403 0.360-3.740 [place] 744043-02-27 06:27:00 Test Item Value Reference Range Interpretation Comments WBC X 10x3 (test code = WBC X 10x3) 5.9 3.7-10.4 [place]4043-02-27 06:27:00 Test Item Value Reference Range Interpretation Comments RBC X 10x6 (test code = RBC X 10x6) 3.67 4.20-5.40 [place] 744043-02-27 06:27:00 Test Item Value Reference Range Interpretation Comments Hgb (test code = Hgb) 10.7 12.0-16.0 [place]4043-02-27 06:27:00 Test Item Value Reference Range Interpretation Comments Hct (test code = Hct) 33.5 36.0-48.0 [place]4043-02-27 06:27:00 Test Item Value Reference Range Interpretation Comments MCV (test code = MCV) 91.4 80.0-98.0 [facility]ZmnrcdlXXHHRCFMSN8887-00-75 06:27:00 Test Item Value Reference Range Interpretation Comments MCH (test code = MCH) 29.3 pg 27.0-31.0 [facility] HospitalAjifqntELCQQKIDQQ1772-37-33 06:27:00 Test Item Value Reference Range Interpretation Comments MCHC (test code = MCHC) 32.0 32.0-36.0 [facility] HospitalYhucpwcJPNJPLHUBK8412-81-51 06:27:00 Test Item Value Reference Range Interpretation Comments RDW (test code = RDW) 13.7 11.5-14.5 [place] 744043-02-27 06:27:00 Test Item Value Reference Range Interpretation Comments Platelet (test code = Platelet) 139 133-450 [place]4043-02-27 06:27:00 Test Item Value Reference Range Interpretation Comments MPV (test code = MPV) 7.5 7.4-10.4 [place] 744043-02-27 06:27:00 Test Item Value Reference Range Interpretation Comments ACT (TEG) Rapid (test code = ACT (TEG) 121 s 86-118 Rapid) [place]4043-02-27 06:27:00 Test Item Value Reference Range Interpretation Comments Split Point Rapid (test code = Split 0.6 min Point Rapid) [facility] HospitalPnsbqppAAJWWQKZPZ3011-26-97 06:27:00 Test Item Value Reference Range Interpretation Comments R-time Rapid (test code = R-time 0.8 min 0.4-0.7 Rapid) [place]4043-02-27 06:27:00 Test Item Value Reference Range Interpretation Comments K-time Rapid (test code = K-time 0.8 min 0.6-2.3 Rapid) [place] 744043-02-27 06:27:00 Test Item Value Reference Range Interpretation Comments Angle Rapid (test code = Angle 79 degrees 64-80 Rapid) [facility] HospitalDtfzysiENPJSAZYNH4541-00-28 06:27:00 Test Item Value Reference Range Interpretation Comments Max Amplitude Rapid (test code = Max 71 mm 52-71 Amplitude Rapid) [place]4043-02-27 06:27:00 Test Item Value Reference Range Interpretation Comments G-value Rapid (test code = G-value 12.1 5.0-11.6 Rapid) [facility] HospitalUmeindgVQGXUWNZRM4933-89-32 06:27:00 Test Item Value Reference Range Interpretation Comments Estimated % Lysis Rapid 0.0 See_Comment [Au tomated message] The (test code = Estimated syste m which generated % Lysis Rapid) this result t ransmitted reference range : <=7.5. The reference r christiano was not used to int erpret this result as normal/abnormal . [facility] HospitalYrttguyXFQWHEKCAQ6228-57-65 06:27:00 Test Item Value Reference Range Interpretation Comments RBC Morph (test code = Normal (11/27/22 12:27 RBC Morph) AM) [facility] HospitalObtjvmjQWRABXACHT1995-53-92 06:27:00 Test Item Value Reference Range Interpretation Comments Plt Morph (test code = Normal (11/27/22 12:27 Plt Morph) AM) [facility] HospitalUwfbdwhOEBHFEVTLW2885-60-90 06:27:00 Test Item Value Reference Range Interpretation Comments Segs (test code = Segs) 60.1 45.0-75.0 [place]4043-02-27 06:27:00 Test Item Value Reference Range Interpretation Comments Lymphocytes (test code = Lymphocytes) 23.9 20.0-40.0 [place] [address]-02-27 06:27:00 Test Item Value Reference Range Interpretation Comments Monocytes (test code = Monocytes) 9.6 2.0-12.0 [place] [address]-02-27 06:27:00 Test Item Value Reference Range Interpretation Comments Eosinophils (test code = 5.2 See_Comment [A utomated message] The Eosinophils) system which ge nerated this result tra nsmitted reference range : <=4.0. The reference r christiano was not used to int erpret this result as normal/abnormal . [place] [address]-02-27 06:27:00 Test Item Value Reference Range Interpretation Comments Basophils (test code = 1.2 See_Comment [Aut omated message] The Basophils) system which ge nerated this result tra nsmitted reference range : <=1.0. The reference r christiano was not used to int erpret this result as normal/abnormal . [place] [address]-02-27 06:27:00 Test Item Value Reference Range Interpretation Comments Neutrophils # (test code = Neutrophils 3.5 1.5-8.1 #) [place] [address]-02-27 06:27:00 Test Item Value Reference Range Interpretation Comments Lymphocytes # (test code = Lymphocytes 1.4 1.0-5.5 #) [place] [address]-02-27 06:27:00 Test Item Value Reference Range Interpretation Comments Monocytes # (test code 0.6 See_Comment [Aut omated message] The = Monocytes #) system which generated this result tra nsmitted reference range : <=0.8. The reference r christiano was not used to int erpret this result as normal/abnormal . [place] [address]-02-27 06:27:00 Test Item Value Reference Range Interpretation Comments Eosinophils # (test code 0.3 See_Comment [A utomated message] The = Eosinophils #) system whic h generated this result tra nsmitted reference range : <=0.5. The reference r christiano was not used to int erpret this result as normal/abnormal . [place] [address]-02-27 06:27:00 Test Item Value Reference Range Interpretation Comments Basophils # (test code 0.1 See_Comment [Aut omated message] The = Basophils #) system which generated this result tra nsmitted reference range : <=0.2. The reference r christiano was not used to int erpret this result as normal/abnormal . [facility] HospitalXyjyydxDOINIZKJYS7791-91-12 06:27:00 Test Item Value Reference Range Interpretation Comments ACT (TEG) Rapid (test code = ACT (TEG) 121 s 86-118 Rapid) [place] [address]-02-27 06:27:00 Test Item Value Reference Range Interpretation Comments Split Point Rapid (test code = Split 0.6 min Point Rapid) [place]4043-02-27 06:27:00 Test Item Value Reference Range Interpretation Comments R-time Rapid (test code = R-time 0.8 min 0.4-0.7 Rapid) [place] [address]-02-27 06:27:00 Test Item Value Reference Range Interpretation Comments K-time Rapid (test code = K-time 0.8 min 0.6-2.3 Rapid) [place] [address]-02-27 06:27:00 Test Item Value Reference Range Interpretation Comments Angle Rapid (test code = Angle 79 degrees 64-80 Rapid) [place]4043-02-27 06:27:00 Test Item Value Reference Range Interpretation Comments Max Amplitude Rapid (test code = Max 71 mm 52-71 Amplitude Rapid) [place] [address]-02-27 06:27:00 Test Item Value Reference Range Interpretation Comments G-value Rapid (test code = G-value 12.1 5.0-11.6 Rapid) [place] [address]-02-27 06:27:00 Test Item Value Reference Range Interpretation Comments Estimated % Lysis Rapid 0.0 See_Comment [Au tomated message] The (test code = Estimated syste m which generated % Lysis Rapid) this result t ransmitted reference range : <=7.5. The reference r christiano was not used to int erpret this result as normal/abnormal . [place]4043-02-27 06:27:00 Test Item Value Reference Range Interpretation Comments RBC Morph (test code = Normal (11/27/22 12:27 RBC Morph) AM) [place] [address]-02-27 06:27:00 Test Item Value Reference Range Interpretation Comments Plt Morph (test code = Normal (11/27/22 12:27 Plt Morph) AM) [facility]EdodnjkARGUOISAEA4757-22-43 06:27:00 Test Item Value Reference Range Interpretation Comments Basophils # (test code 0.1 See_Comment [Aut omated message] The = Basophils #) system which generated this result tra nsmitted reference range : <=0.2. The reference r christiano was not used to int erpret this result as normal/abnormal . [place] 570323-02-27 06:27:00 Test Item Value Reference Range Interpretation Comments Glucose Lvl (test code = Glucose Lvl) 85 70-99 [place] 570323-02-27 06:27:00 Test Item Value Reference Range Interpretation Comments BUN (test code = BUN) 28 7-22 [place] 570323-02-27 06:27:00 Test Item Value Reference Range Interpretation Comments Creatinine Lvl (test code = Creatinine 2.19 0.50-1.40 Lvl) [place] [address]-02-27 06:27:00 Test Item Value Reference Range Interpretation Comments Sodium Lvl (test code = Sodium Lvl) 143 135-145 [place] 570323-02-27 06:27:00 Test Item Value Reference Range Interpretation Comments Potassium Lvl (test code = Potassium 4.3 3.5-5.1 Lvl) [place] [address]-02-27 06:27:00 Test Item Value Reference Range Interpretation Comments Chloride Lvl (test code = Chloride Lvl) 110 95-109 [place] 570323-02-27 06:27:00 Test Item Value Reference Range Interpretation Comments CO2 (test code = CO2) 27 24-32 [place] 570323-02-27 06:27:00 Test Item Value Reference Range Interpretation Comments Calcium Lvl (test code = Calcium Lvl) 8.1 8.5-10.5 [place] 570323-02-27 06:27:00 Test Item Value Reference Range Interpretation Comments AGAP (test code = AGAP) 10.3 10.0-20.0 [place] 570323-02-27 06:27:00 Test Item Value Reference Range Interpretation Comments eGFR (test code = eGFR) 22 [place] 570323-02-27 06:27:00 Test Item Value Reference Range Interpretation Comments Total Protein (test code = Total 6.6 6.4-8.4 Protein) [place] 570323-02-27 06:27:00 Test Item Value Reference Range Interpretation Comments Albumin Lvl (test code = Albumin Lvl) 3.0 3.5-5.0 [place] 570323-02-27 06:27:00 Test Item Value Reference Range Interpretation Comments Globulin (test code = Globulin) 3.6 2.7-4.2 [place] 570323-02-27 06:27:00 Test Item Value Reference Range Interpretation Comments A/G Ratio (test code = A/G Ratio) 0.8 1 0.7-1.6 [place] [address]-02-27 06:27:00 Test Item Value Reference Range Interpretation Comments ALANINE AMINOTRANSFERASE 21 See_Comment [A utomated message] (test code = ALANINE The sys tem which AMINOTRANSFERASE) generated this result transmitted ref erence range: <=65. Th e reference range was not used to int erpret this result as normal/abnormal . [facility] [id number] 06:27:00 Test Item Value Reference Range Interpretation Comments AST (test code = AST) 17 See_Comment [Auto mated message] The system which ge nerated this result transmit sheba reference range : <=37. The reference range was not used to interpr et this result as edy l/abnormal. [facility] [id number] 06:27:00 Test Item Value Reference Range Interpretation Comments Alk Phos (test code = Alk Phos) 84 39-136 [place] 570323-02-27 06:27:00 Test Item Value Reference Range Interpretation Comments Bili Total (test code = Bili Total) 0.3 0.2-1.3 [place] [address]-02-27 06:27:00 Test Item Value Reference Range Interpretation Comments Bili Direct (test code no gt See_Comment [Aut omated message] The = Bili Direct) system which generated this result tra nsmitted reference range : <=0.3. The reference r christiano was not used to int erpret this result as edy l/abnormal. [facility] [id number] 06:27:00 Test Item Value Reference Range Interpretation Comments Bili Indirect Unable to See_Comment [Automated (test code = Bili Calculate message] T he system Indirect) which generated this result transmitted reference range : <=1.0. The reference range was not used to interpret this result as normal/abnormal . [facility] [id number] 06:27:00 Test Item Value Reference Range Interpretation Comments Lactic Acid Lvl (test code = Lactic 0.5 0.5-2.2 Acid Lvl) [facility] CenterYjrtdmdERFJDNZIA5739-85-08 06:27:00 Test Item Value Reference Range Interpretation Comments Total Protein (test code = Total 6.6 6.4-8.4 Protein) [facility] CenterZbypwbhDKKGMUZUL6624-41-80 06:27:00 Test Item Value Reference Range Interpretation Comments Albumin Lvl (test code = Albumin Lvl) 3.0 3.5-5.0 [facility] CenterJxhbamhCVVLZFIUX7085-49-31 06:27:00 Test Item Value Reference Range Interpretation Comments Globulin (test code = Globulin) 3.6 2.7-4.2 [facility] CenterVxyjbxsIQFPSPNIG6969-05-65 06:27:00 Test Item Value Reference Range Interpretation Comments A/G Ratio (test code = A/G Ratio) 0.8 1 0.7-1.6 [facility] CenterWgkovubVHEPTHOMX3742-66-72 06:27:00 Test Item Value Reference Range Interpretation Comments ALANINE AMINOTRANSFERASE 21 See_Comment [A utomated message] (test code = ALANINE The sys tem which AMINOTRANSFERASE) generated this result transmitted ref erence range: <=65. Th e reference range was not used to int erpret this result as normal/abnormal . [facility] ChildrenDmvhghyHNIIAXCUE7515-07-40 06:27:00 Test Item Value Reference Range Interpretation Comments AST (test code = AST) 17 See_Comment [Auto mated message] The system which ge nerated this result transmit sheba reference range : <=37. The reference range was not used to interpr et this result as edy l/abnormal. [facility] BudaGnopwucCMTNGXAHJ2543-22-80 06:27:00 Test Item Value Reference Range Interpretation Comments Alk Phos (test code = Alk Phos) 84 39-136 [facility] CenterRgnlngbNPDQDJVJX7759-83-90 06:27:00 Test Item Value Reference Range Interpretation Comments Bili Total (test code = Bili Total) 0.3 0.2-1.3 [facility] CenterIwfuffjBHWANFGKX8163-76-71 06:27:00 Test Item Value Reference Range Interpretation Comments Bili Direct (test code no gt See_Comment [Aut omated message] The = Bili Direct) system which generated this result tra nsmitted reference range : <=0.3. The reference r christiano was not used to int erpret this result as edy l/abnormal. [facility] CenterRkaazfaNNNKFTKKW4039-74-29 06:27:00 Test Item Value Reference Range Interpretation Comments Bili Indirect Unable to See_Comment [Automated (test code = Bili Calculate message] T he system Indirect) which generated this result transmitted reference range : <=1.0. The reference range was not used to interpret this result as normal/abnormal . [facility] CenterNpbkarhLDGTIEQTG3546-77-47 06:27:00 Test Item Value Reference Range Interpretation Comments pH Justin (test code = pH Justin) 7.29 1 7.28-7.42 [facility] CenterPhxquhtDEGYEBFAC3981-53-76 06:27:00 Test Item Value Reference Range Interpretation Comments pCO2 Justin (test code = pCO2 Justin) 65 38-52 [facility] CenterDjcbysxIYJSPWKDL6747-96-29 06:27:00 Test Item Value Reference Range Interpretation Comments pO2 Justin (test code = pO2 Justin) 37 20-49 [facility] CenterOuehirgMXGLBLLTQ2219-46-50 06:27:00 Test Item Value Reference Range Interpretation Comments HCO3 Justin (test code = HCO3 Justin) 31 22-26 [facility] CenterDrmcucbVUYWLUUQJ3500-51-24 06:27:00 Test Item Value Reference Range Interpretation Comments BE Justin (test code = BE Justin) 3 -2-2 [facility] CenterGadzpeoXHFVBFJES8989-78-18 06:27:00 Test Item Value Reference Range Interpretation Comments O2 Sat Justin (calc) (test code = O2 Sat 63.0 40.0-70.0 Justin (calc)) [facility] CenterWtqvpvcACKIECUZX4260-12-06 06:27:00 Test Item Value Reference Range Interpretation Comments Temp Justin (test code = Temp Justin) 37.0 [facility] CenterWofqozsOGRGQHRWX3990-86-06 06:27:00 Test Item Value Reference Range Interpretation Comments Lactic Acid Lvl (test code = Lactic 0.5 0.5-2.2 Acid Lvl) [facility] CenterHplbpzcQZIJMWFFJ5178-87-13 06:27:00 Test Item Value Reference Range Interpretation Comments TSH (test code = TSH) 0.403 0.360-3.740 [facility]RtaqkpiBTVYBDOMJO1500-04-55 06:27:00 Test Item Value Reference Range Interpretation Comments WBC X 10x3 (test code = WBC X 10x3) 5.9 3.7-10.4 [place] 744043-02-27 06:27:00 Test Item Value Reference Range Interpretation Comments RBC X 10x6 (test code = RBC X 10x6) 3.67 4.20-5.40 [place] 744043-02-27 06:27:00 Test Item Value Reference Range Interpretation Comments Hgb (test code = Hgb) 10.7 12.0-16.0 [place] 744043-02-27 06:27:00 Test Item Value Reference Range Interpretation Comments Hct (test code = Hct) 33.5 36.0-48.0 [place] 744043-02-27 06:27:00 Test Item Value Reference Range Interpretation Comments MCV (test code = MCV) 91.4 80.0-98.0 [place] 744043-02-27 06:27:00 Test Item Value Reference Range Interpretation Comments MCH (test code = MCH) 29.3 pg 27.0-31.0 [facility] HospitalAjiozwrMYRRHYADXD3119-60-41 06:27:00 Test Item Value Reference Range Interpretation Comments MCHC (test code = MCHC) 32.0 32.0-36.0 [facility] HospitalGdyxgycESYBEFYLIA6189-55-98 06:27:00 Test Item Value Reference Range Interpretation Comments RDW (test code = RDW) 13.7 11.5-14.5 [place] 744043-02-27 06:27:00 Test Item Value Reference Range Interpretation Comments Platelet (test code = Platelet) 139 133-450 [facility] HospitalKpvnlzoWGJFMRCGIM2065-13-30 06:27:00 Test Item Value Reference Range Interpretation Comments MPV (test code = MPV) 7.5 7.4-10.4 [facility] HospitalRkfoumrOSNBSBPETF6909-97-09 06:27:00 Test Item Value Reference Range Interpretation Comments ACT (TEG) Rapid (test code = ACT (TEG) 121 s 86-118 Rapid) [place] 744043-02-27 06:27:00 Test Item Value Reference Range Interpretation Comments Split Point Rapid (test code = Split 0.6 min Point Rapid) [place] 744043-02-27 06:27:00 Test Item Value Reference Range Interpretation Comments R-time Rapid (test code = R-time 0.8 min 0.4-0.7 Rapid) [place] [address]-02-27 06:27:00 Test Item Value Reference Range Interpretation Comments K-time Rapid (test code = K-time 0.8 min 0.6-2.3 Rapid) [place] [address]-02-27 06:27:00 Test Item Value Reference Range Interpretation Comments Angle Rapid (test code = Angle 79 degrees 64-80 Rapid) [place] [address]-02-27 06:27:00 Test Item Value Reference Range Interpretation Comments Max Amplitude Rapid (test code = Max 71 mm 52-71 Amplitude Rapid) [place] [address]-02-27 06:27:00 Test Item Value Reference Range Interpretation Comments G-value Rapid (test code = G-value 12.1 5.0-11.6 Rapid) [place] [address]-02-27 06:27:00 Test Item Value Reference Range Interpretation Comments Estimated % Lysis Rapid 0.0 See_Comment [Au tomated message] The (test code = Estimated syste m which generated % Lysis Rapid) this result t ransmitted reference range : <=7.5. The reference r christiano was not used to int erpret this result as normal/abnormal . [facility] HospitalWxdryesEBQGZRAGPH2060-66-61 06:27:00 Test Item Value Reference Range Interpretation Comments RBC Morph (test code = Normal (11/27/22 12:27 RBC Morph) AM) [place] 744043-02-27 06:27:00 Test Item Value Reference Range Interpretation Comments Plt Morph (test code = Normal (11/27/22 12:27 Plt Morph) AM) [place] 744043-02-27 06:27:00 Test Item Value Reference Range Interpretation Comments Segs (test code = Segs) 60.1 45.0-75.0 [place] [address]-02-27 06:27:00 Test Item Value Reference Range Interpretation Comments Lymphocytes (test code = Lymphocytes) 23.9 20.0-40.0 [place] [address]-02-27 06:27:00 Test Item Value Reference Range Interpretation Comments Monocytes (test code = Monocytes) 9.6 2.0-12.0 [place] [address]-02-27 06:27:00 Test Item Value Reference Range Interpretation Comments Eosinophils (test code = 5.2 See_Comment [A utomated message] The Eosinophils) system which ge nerated this result tra nsmitted reference range : <=4.0. The reference r christiano was not used to int erpret this result as normal/abnormal . [place] 744043-02-27 06:27:00 Test Item Value Reference Range Interpretation Comments Basophils (test code = 1.2 See_Comment [Aut omated message] The Basophils) system which ge nerated this result tra nsmitted reference range : <=1.0. The reference r christiano was not used to int erpret this result as normal/abnormal . [place] 744043-02-27 06:27:00 Test Item Value Reference Range Interpretation Comments Neutrophils # (test code = Neutrophils 3.5 1.5-8.1 #) [place] 744043-02-27 06:27:00 Test Item Value Reference Range Interpretation Comments Lymphocytes # (test code = Lymphocytes 1.4 1.0-5.5 #) [place] 744043-02-27 06:27:00 Test Item Value Reference Range Interpretation Comments Monocytes # (test code 0.6 See_Comment [Aut omated message] The = Monocytes #) system which generated this result tra nsmitted reference range : <=0.8. The reference r christiano was not used to int erpret this result as normal/abnormal . [place] [address]-02-27 06:27:00 Test Item Value Reference Range Interpretation Comments Eosinophils # (test code 0.3 See_Comment [A utomated message] The = Eosinophils #) system whic h generated this result tra nsmitted reference range : <=0.5. The reference r christiano was not used to int erpret this result as normal/abnormal . [place] 744043-02-27 06:27:00 Test Item Value Reference Range Interpretation Comments Basophils # (test code 0.1 See_Comment [Aut omated message] The = Basophils #) system which generated this result tra nsmitted reference range : <=0.2. The reference r christiano was not used to int erpret this result as normal/abnormal . [facility] HospitalWqtaaqzKVGJJUQOUE0478-83-00 06:27:00 Test Item Value Reference Range Interpretation Comments ACT (TEG) Rapid (test code = ACT (TEG) 121 s 86-118 Rapid) [facility] HospitalXqqmhblMOTZABIKPQ3739-33-70 06:27:00 Test Item Value Reference Range Interpretation Comments Split Point Rapid (test code = Split 0.6 min Point Rapid) [facility] HospitalSibxcfpIZFKGDKCFG0986-85-09 06:27:00 Test Item Value Reference Range Interpretation Comments R-time Rapid (test code = R-time 0.8 min 0.4-0.7 Rapid) [place] 744043-02-27 06:27:00 Test Item Value Reference Range Interpretation Comments K-time Rapid (test code = K-time 0.8 min 0.6-2.3 Rapid) [facility] HospitalFufmdywIOEPAGDTWN2053-65-52 06:27:00 Test Item Value Reference Range Interpretation Comments Angle Rapid (test code = Angle 79 degrees 64-80 Rapid) [facility] HospitalFcxdhakVVMMEJIAFB7103-76-54 06:27:00 Test Item Value Reference Range Interpretation Comments Max Amplitude Rapid (test code = Max 71 mm 52-71 Amplitude Rapid) [place] 744043-02-27 06:27:00 Test Item Value Reference Range Interpretation Comments G-value Rapid (test code = G-value 12.1 5.0-11.6 Rapid) [facility] HospitalRcnfckqAWZXPBGTDI2963-20-49 06:27:00 Test Item Value Reference Range Interpretation Comments Estimated % Lysis Rapid 0.0 See_Comment [Au tomated message] The (test code = Estimated syste m which generated % Lysis Rapid) this result t ransmitted reference range : <=7.5. The reference r christiano was not used to int erpret this result as normal/abnormal . [facility] HospitalDrzwdyvFDFNWLTYBZ4820-24-20 06:27:00 Test Item Value Reference Range Interpretation Comments RBC Morph (test code = Normal (11/27/22 12:27 RBC Morph) AM) [facility] HospitalCelvqwqWPZUSFQFPX6670-25-67 06:27:00 Test Item Value Reference Range Interpretation Comments Plt Morph (test code = Normal (11/27/22 12:27 Plt Morph) AM) [place] 744043-02-27 06:27:00 Test Item Value Reference Range Interpretation Comments Basophils # (test code 0.1 See_Comment [Aut omated message] The = Basophils #) system which generated this result tra nsmitted reference range : <=0.2. The reference r christiano was not used to int erpret this result as normal/abnormal . [facility]2023-02-27 06:27:00 Test Item Value Reference Range Interpretation Comments Glucose Lvl (test code = Glucose Lvl) 85 70-99 [place] 570323-02-27 06:27:00 Test Item Value Reference Range Interpretation Comments BUN (test code = BUN) 28 7-22 [place] 570323-02-27 06:27:00 Test Item Value Reference Range Interpretation Comments Creatinine Lvl (test code = Creatinine 2.19 0.50-1.40 Lvl) [place] 570323-02-27 06:27:00 Test Item Value Reference Range Interpretation Comments Sodium Lvl (test code = Sodium Lvl) 143 135-145 [place] 570323-02-27 06:27:00 Test Item Value Reference Range Interpretation Comments Potassium Lvl (test code = Potassium 4.3 3.5-5.1 Lvl) [place] 570323-02-27 06:27:00 Test Item Value Reference Range Interpretation Comments Chloride Lvl (test code = Chloride Lvl) 110 95-109 [place] 570323-02-27 06:27:00 Test Item Value Reference Range Interpretation Comments CO2 (test code = CO2) 27 24-32 [place] 570323-02-27 06:27:00 Test Item Value Reference Range Interpretation Comments Calcium Lvl (test code = Calcium Lvl) 8.1 8.5-10.5 [place] 570323-02-27 06:27:00 Test Item Value Reference Range Interpretation Comments AGAP (test code = AGAP) 10.3 10.0-20.0 [place] 570323-02-27 06:27:00 Test Item Value Reference Range Interpretation Comments eGFR (test code = eGFR) 22 [place] 570323-02-27 06:27:00 Test Item Value Reference Range Interpretation Comments Total Protein (test code = Total 6.6 6.4-8.4 Protein) [place] [address]-02-27 06:27:00 Test Item Value Reference Range Interpretation Comments Albumin Lvl (test code = Albumin Lvl) 3.0 3.5-5.0 [place] 570323-02-27 06:27:00 Test Item Value Reference Range Interpretation Comments Globulin (test code = Globulin) 3.6 2.7-4.2 [place] [address]-02-27 06:27:00 Test Item Value Reference Range Interpretation Comments A/G Ratio (test code = A/G Ratio) 0.8 1 0.7-1.6 [place] [address]-02-27 06:27:00 Test Item Value Reference Range Interpretation Comments ALANINE AMINOTRANSFERASE 21 See_Comment [A utomated message] (test code = ALANINE The sys tem which AMINOTRANSFERASE) generated this result transmitted ref erence range: <=65. Th e reference range was not used to int erpret this result as normal/abnormal . [place] [address]-02-27 06:27:00 Test Item Value Reference Range Interpretation Comments AST (test code = AST) 17 See_Comment [Auto mated message] The system which ge nerated this result transmit sheba reference range : <=37. The reference range was not used to interpr et this result as edy l/abnormal. [place] 570323-02-27 06:27:00 Test Item Value Reference Range Interpretation Comments Alk Phos (test code = Alk Phos) 84 39-136 [place] [address]-02-27 06:27:00 Test Item Value Reference Range Interpretation Comments Bili Total (test code = Bili Total) 0.3 0.2-1.3 [place] [address]-02-27 06:27:00 Test Item Value Reference Range Interpretation Comments Bili Direct (test code no gt See_Comment [Aut omated message] The = Bili Direct) system which generated this result tra nsmitted reference range : <=0.3. The reference r christiano was not used to int erpret this result as edy l/abnormal. [facility] VWGGI0402-96-46 06:27:00 Test Item Value Reference Range Interpretation Comments Bili Indirect Unable to See_Comment [Automated (test code = Bili Calculate message] T he system Indirect) which generated this result transmitted reference range : <=1.0. The reference range was not used to interpret this result as normal/abnormal . [facility]2023-02-27 06:27:00 Test Item Value Reference Range Interpretation Comments Lactic Acid Lvl (test code = Lactic 0.5 0.5-2.2 Acid Lvl) [facility] CenterYpwvrgsLIHHVHNWO8253-05-07 06:27:00 Test Item Value Reference Range Interpretation Comments Total Protein (test code = Total 6.6 6.4-8.4 Protein) [facility] CenterCawsbksTJLXFCNVV8819-05-89 06:27:00 Test Item Value Reference Range Interpretation Comments Albumin Lvl (test code = Albumin Lvl) 3.0 3.5-5.0 [facility] CenterXonbrbuQWSXSULVJ9001-30-41 06:27:00 Test Item Value Reference Range Interpretation Comments Globulin (test code = Globulin) 3.6 2.7-4.2 [facility] CenterLbhcamiBQPKBMKAX3663-47-43 06:27:00 Test Item Value Reference Range Interpretation Comments A/G Ratio (test code = A/G Ratio) 0.8 1 0.7-1.6 [facility] CenterCttjlibEMYSJJVIX9720-06-11 06:27:00 Test Item Value Reference Range Interpretation Comments ALANINE AMINOTRANSFERASE 21 See_Comment [A utomated message] (test code = ALANINE The sys tem which AMINOTRANSFERASE) generated this result transmitted ref erence range: <=65. Th e reference range was not used to int erpret this result as normal/abnormal . [facility] BudaBiddacpGLAFSOTDL4863-22-49 06:27:00 Test Item Value Reference Range Interpretation Comments AST (test code = AST) 17 See_Comment [Auto mated message] The system which ge nerated this result transmit sheba reference range : <=37. The reference range was not used to interpr et this result as edy l/abnormal. [facility] CenterJesuxggNKASWRXEX7639-79-26 06:27:00 Test Item Value Reference Range Interpretation Comments Alk Phos (test code = Alk Phos) 84 39-136 [facility] CenterPvjzxcaYVNITEPRW5465-04-35 06:27:00 Test Item Value Reference Range Interpretation Comments Bili Total (test code = Bili Total) 0.3 0.2-1.3 [facility] BudaExupmumHGOVQTAPC2045-92-00 06:27:00 Test Item Value Reference Range Interpretation Comments Bili Direct (test code no gt See_Comment [Aut omated message] The = Bili Direct) system which generated this result tra nsmitted reference range : <=0.3. The reference r christiano was not used to int erpret this result as edy l/abnormal. [facility] CenterZwasvqzDSCYBLLZW4913-40-29 06:27:00 Test Item Value Reference Range Interpretation Comments Bili Indirect Unable to See_Comment [Automated (test code = Bili Calculate message] T he system Indirect) which generated this result transmitted reference range : <=1.0. The reference range was not used to interpret this result as normal/abnormal . [facility] CenterTpyugelADCZJWRCM2093-37-48 06:27:00 Test Item Value Reference Range Interpretation Comments pH Justin (test code = pH Justin) 7.29 1 7.28-7.42 [facility] CenterOtodduyDMJLDZVYG5789-47-43 06:27:00 Test Item Value Reference Range Interpretation Comments pCO2 Justin (test code = pCO2 Justin) 65 38-52 [facility] CenterNvqytqoHALQAWPJL0504-55-67 06:27:00 Test Item Value Reference Range Interpretation Comments pO2 Justin (test code = pO2 Justin) 37 20-49 [facility] CenterVsepqccCQXEHJUNT0123-86-78 06:27:00 Test Item Value Reference Range Interpretation Comments HCO3 Justin (test code = HCO3 Justin) 31 22-26 [facility] CenterSqkedyeSWMMQAPIP1762-90-73 06:27:00 Test Item Value Reference Range Interpretation Comments BE Justin (test code = BE Justin) 3 -2-2 [facility] CenterXquvnmcCHNJPWQXI2513-12-09 06:27:00 Test Item Value Reference Range Interpretation Comments O2 Sat Justin (calc) (test code = O2 Sat 63.0 40.0-70.0 Justin (calc)) [facility] CenterDsymlhhJLWKDFQSS7471-32-51 06:27:00 Test Item Value Reference Range Interpretation Comments Temp Justin (test code = Temp Justin) 37.0 [facility] CenterDlsevflZXUDHDKRJ7325-23-58 06:27:00 Test Item Value Reference Range Interpretation Comments Lactic Acid Lvl (test code = Lactic 0.5 0.5-2.2 Acid Lvl) [facility] CenterPswdvjpUTLJPBFAR6172-13-78 06:27:00 Test Item Value Reference Range Interpretation Comments TSH (test code = TSH) 0.403 0.360-3.740 [place] 744043-02-27 06:27:00 Test Item Value Reference Range Interpretation Comments WBC X 10x3 (test code = WBC X 10x3) 5.9 3.7-10.4 [place] 744043-02-27 06:27:00 Test Item Value Reference Range Interpretation Comments RBC X 10x6 (test code = RBC X 10x6) 3.67 4.20-5.40 [place] 744043-02-27 06:27:00 Test Item Value Reference Range Interpretation Comments Hgb (test code = Hgb) 10.7 12.0-16.0 [place] 744043-02-27 06:27:00 Test Item Value Reference Range Interpretation Comments Hct (test code = Hct) 33.5 36.0-48.0 [place] [address]-02-27 06:27:00 Test Item Value Reference Range Interpretation Comments MCV (test code = MCV) 91.4 80.0-98.0 [place] 744043-02-27 06:27:00 Test Item Value Reference Range Interpretation Comments MCH (test code = MCH) 29.3 pg 27.0-31.0 [facility] HospitalCalrskwVKYSAAFCXL3454-16-32 06:27:00 Test Item Value Reference Range Interpretation Comments MCHC (test code = MCHC) 32.0 32.0-36.0 [place] 744043-02-27 06:27:00 Test Item Value Reference Range Interpretation Comments RDW (test code = RDW) 13.7 11.5-14.5 [place] 744043-02-27 06:27:00 Test Item Value Reference Range Interpretation Comments Platelet (test code = Platelet) 139 133-450 [place] 744043-02-27 06:27:00 Test Item Value Reference Range Interpretation Comments MPV (test code = MPV) 7.5 7.4-10.4 [place] [address]-02-27 06:27:00 Test Item Value Reference Range Interpretation Comments ACT (TEG) Rapid (test code = ACT (TEG) 121 s 86-118 Rapid) [place] 744043-02-27 06:27:00 Test Item Value Reference Range Interpretation Comments Split Point Rapid (test code = Split 0.6 min Point Rapid) [place] [address]-02-27 06:27:00 Test Item Value Reference Range Interpretation Comments R-time Rapid (test code = R-time 0.8 min 0.4-0.7 Rapid) [place] [address]-02-27 06:27:00 Test Item Value Reference Range Interpretation Comments K-time Rapid (test code = K-time 0.8 min 0.6-2.3 Rapid) [place] [address]-02-27 06:27:00 Test Item Value Reference Range Interpretation Comments Angle Rapid (test code = Angle 79 degrees 64-80 Rapid) [place] [address]-02-27 06:27:00 Test Item Value Reference Range Interpretation Comments Max Amplitude Rapid (test code = Max 71 mm 52-71 Amplitude Rapid) [place] [address]-02-27 06:27:00 Test Item Value Reference Range Interpretation Comments G-value Rapid (test code = G-value 12.1 5.0-11.6 Rapid) [place] [address]-02-27 06:27:00 Test Item Value Reference Range Interpretation Comments Estimated % Lysis Rapid 0.0 See_Comment [Au tomated message] The (test code = Estimated syste m which generated % Lysis Rapid) this result t ransmitted reference range : <=7.5. The reference r christiano was not used to int erpret this result as normal/abnormal . [place] 744043-02-27 06:27:00 Test Item Value Reference Range Interpretation Comments RBC Morph (test code = Normal (11/27/22 12:27 RBC Morph) AM) [place] [address]-02-27 06:27:00 Test Item Value Reference Range Interpretation Comments Plt Morph (test code = Normal (11/27/22 12:27 Plt Morph) AM) [place] [address]-02-27 06:27:00 Test Item Value Reference Range Interpretation Comments Segs (test code = Segs) 60.1 45.0-75.0 [place] [address]-02-27 06:27:00 Test Item Value Reference Range Interpretation Comments Lymphocytes (test code = Lymphocytes) 23.9 20.0-40.0 [place] [address]-02-27 06:27:00 Test Item Value Reference Range Interpretation Comments Monocytes (test code = Monocytes) 9.6 2.0-12.0 [place] [address]-02-27 06:27:00 Test Item Value Reference Range Interpretation Comments Eosinophils (test code = 5.2 See_Comment [A utomated message] The Eosinophils) system which ge nerated this result tra nsmitted reference range : <=4.0. The reference r christiano was not used to int erpret this result as normal/abnormal . [place] 744043-02-27 06:27:00 Test Item Value Reference Range Interpretation Comments Basophils (test code = 1.2 See_Comment [Aut omated message] The Basophils) system which ge nerated this result tra nsmitted reference range : <=1.0. The reference r christiano was not used to int erpret this result as normal/abnormal . [place] 744043-02-27 06:27:00 Test Item Value Reference Range Interpretation Comments Neutrophils # (test code = Neutrophils 3.5 1.5-8.1 #) [place] 744043-02-27 06:27:00 Test Item Value Reference Range Interpretation Comments Lymphocytes # (test code = Lymphocytes 1.4 1.0-5.5 #) [place] 744043-02-27 06:27:00 Test Item Value Reference Range Interpretation Comments Monocytes # (test code 0.6 See_Comment [Aut omated message] The = Monocytes #) system which generated this result tra nsmitted reference range : <=0.8. The reference r christiano was not used to int erpret this result as normal/abnormal . [place] 744043-02-27 06:27:00 Test Item Value Reference Range Interpretation Comments Eosinophils # (test code 0.3 See_Comment [A utomated message] The = Eosinophils #) system whic h generated this result tra nsmitted reference range : <=0.5. The reference r christiano was not used to int erpret this result as normal/abnormal . [place] 744043-02-27 06:27:00 Test Item Value Reference Range Interpretation Comments Basophils # (test code 0.1 See_Comment [Aut omated message] The = Basophils #) system which generated this result tra nsmitted reference range : <=0.2. The reference r christiano was not used to int erpret this result as normal/abnormal . [facility] Test Item Value Reference Range Interpretation Comments ACT (TEG) Rapid (test code = ACT (TEG) 121 s 86-118 Rapid) [facility]BuwpmslIARKQGPRHF4415-84-94 06:27:00 Test Item Value Reference Range Interpretation Comments Split Point Rapid (test code = Split 0.6 min Point Rapid) [place] 744043-02-27 06:27:00 Test Item Value Reference Range Interpretation Comments R-time Rapid (test code = R-time 0.8 min 0.4-0.7 Rapid) [place] 744043-02-27 06:27:00 Test Item Value Reference Range Interpretation Comments K-time Rapid (test code = K-time 0.8 min 0.6-2.3 Rapid) [place] [address]-02-27 06:27:00 Test Item Value Reference Range Interpretation Comments Angle Rapid (test code = Angle 79 degrees 64-80 Rapid) [place] 744043-02-27 06:27:00 Test Item Value Reference Range Interpretation Comments Max Amplitude Rapid (test code = Max 71 mm 52-71 Amplitude Rapid) [place] 744043-02-27 06:27:00 Test Item Value Reference Range Interpretation Comments G-value Rapid (test code = G-value 12.1 5.0-11.6 Rapid) [place] 744043-02-27 06:27:00 Test Item Value Reference Range Interpretation Comments Estimated % Lysis Rapid 0.0 See_Comment [Au tomated message] The (test code = Estimated syste m which generated % Lysis Rapid) this result t ransmitted reference range : <=7.5. The reference r christiano was not used to int erpret this result as normal/abnormal . [facility] HospitalIrwpmlyRUGRSOOLWH5763-11-97 06:27:00 Test Item Value Reference Range Interpretation Comments RBC Morph (test code = Normal (11/27/22 12:27 RBC Morph) AM) [facility] HospitalBupaqipFQUNKGZKEK5152-10-91 06:27:00 Test Item Value Reference Range Interpretation Comments Plt Morph (test code = Normal (11/27/22 12:27 Plt Morph) AM) [place] 744043-02-27 06:27:00 Test Item Value Reference Range Interpretation Comments Basophils # (test code 0.1 See_Comment [Aut omated message] The = Basophils #) system which generated this result tra nsmitted reference range : <=0.2. The reference r christiano was not used to int erpret this result as normal/abnormal . [facility]2023-02-27 06:27:00 Test Item Value Reference Range Interpretation Comments Glucose Lvl (test code = Glucose Lvl) 85 70-99 [place] 570323-02-27 06:27:00 Test Item Value Reference Range Interpretation Comments BUN (test code = BUN) 28 7-22 [place] 570323-02-27 06:27:00 Test Item Value Reference Range Interpretation Comments Creatinine Lvl (test code = Creatinine 2.19 0.50-1.40 Lvl) [facility]2023-02-27 06:27:00 Test Item Value Reference Range Interpretation Comments Sodium Lvl (test code = Sodium Lvl) 143 135-145 [facility]2023-02-27 06:27:00 Test Item Value Reference Range Interpretation Comments Potassium Lvl (test code = Potassium 4.3 3.5-5.1 Lvl) [facility]2023-02-27 06:27:00 Test Item Value Reference Range Interpretation Comments Chloride Lvl (test code = Chloride Lvl) 110 95-109 [facility]2023-02-27 06:27:00 Test Item Value Reference Range Interpretation Comments CO2 (test code = CO2) 27 24-32 [facility]2023-02-27 06:27:00 Test Item Value Reference Range Interpretation Comments Calcium Lvl (test code = Calcium Lvl) 8.1 8.5-10.5 [facility]2023-02-27 06:27:00 Test Item Value Reference Range Interpretation Comments AGAP (test code = AGAP) 10.3 10.0-20.0 [place] 570323-02-27 06:27:00 Test Item Value Reference Range Interpretation Comments eGFR (test code = eGFR) 22 [place] 570323-02-27 06:27:00 Test Item Value Reference Range Interpretation Comments Total Protein (test code = Total 6.6 6.4-8.4 Protein) [place] 570323-02-27 06:27:00 Test Item Value Reference Range Interpretation Comments Albumin Lvl (test code = Albumin Lvl) 3.0 3.5-5.0 [place] [address]-02-27 06:27:00 Test Item Value Reference Range Interpretation Comments Globulin (test code = Globulin) 3.6 2.7-4.2 [place] [address]-02-27 06:27:00 Test Item Value Reference Range Interpretation Comments A/G Ratio (test code = A/G Ratio) 0.8 1 0.7-1.6 [place] [address]-02-27 06:27:00 Test Item Value Reference Range Interpretation Comments ALANINE AMINOTRANSFERASE 21 See_Comment [A utomated message] (test code = ALANINE The sys tem which AMINOTRANSFERASE) generated this result transmitted ref erence range: <=65. Th e reference range was not used to int erpret this result as normal/abnormal . [facility] [id number] 06:27:00 Test Item Value Reference Range Interpretation Comments AST (test code = AST) 17 See_Comment [Auto mated message] The system which ge nerated this result transmit sheba reference range : <=37. The reference range was not used to interpr et this result as edy l/abnormal. [facility] [id number] 06:27:00 Test Item Value Reference Range Interpretation Comments Alk Phos (test code = Alk Phos) 84 39-136 [place] [address]-02-27 06:27:00 Test Item Value Reference Range Interpretation Comments Bili Total (test code = Bili Total) 0.3 0.2-1.3 [facility] [id number] 06:27:00 Test Item Value Reference Range Interpretation Comments Bili Direct (test code no gt See_Comment [Aut omated message] The = Bili Direct) system which generated this result tra nsmitted reference range : <=0.3. The reference r christiano was not used to int erpret this result as edy l/abnormal. [facility] ChildrenPuzz[facility] [id number] 06:27:00 Test Item Value Reference Range Interpretation Comments Bili Indirect Unable to See_Comment [Automated (test code = Bili Calculate message] T he system Indirect) which generated this result transmitted reference range : <=1.0. The reference range was not used to interpret this result as normal/abnormal . [facility]2023-02-27 06:27:00 Test Item Value Reference Range Interpretation Comments Lactic Acid Lvl (test code = Lactic 0.5 0.5-2.2 Acid Lvl) [facility] CenterPzfroqgKPIKLGZPP5147-53-32 06:27:00 Test Item Value Reference Range Interpretation Comments Total Protein (test code = Total 6.6 6.4-8.4 Protein) [facility] CenterCdxixywEKYGRNPPJ0587-98-22 06:27:00 Test Item Value Reference Range Interpretation Comments Albumin Lvl (test code = Albumin Lvl) 3.0 3.5-5.0 [facility] CenterQwimfakZMCHQLOTL4105-79-45 06:27:00 Test Item Value Reference Range Interpretation Comments Globulin (test code = Globulin) 3.6 2.7-4.2 [facility] CenterHmhfqfrUZKJYOAXH4983-54-39 06:27:00 Test Item Value Reference Range Interpretation Comments A/G Ratio (test code = A/G Ratio) 0.8 1 0.7-1.6 [place] [address]-02-27 06:27:00 Test Item Value Reference Range Interpretation Comments ALANINE AMINOTRANSFERASE 21 See_Comment [A utomated message] (test code = ALANINE The sys tem which AMINOTRANSFERASE) generated this result transmitted ref erence range: <=65. Th e reference range was not used to int erpret this result as normal/abnormal . [facility] CenterRsselxqMAMQGTQLY5466-42-59:27:00 Test Item Value Reference Range Interpretation Comments AST (test code = AST) 17 See_Comment [Auto mated message] The system which ge nerated this result transmit sheba reference range : <=37. The reference range was not used to interpr et this result as edy l/abnormal. [facility] CenterQucwvbeOYXDNTPVL7494-49-06 06:27:00 Test Item Value Reference Range Interpretation Comments Alk Phos (test code = Alk Phos) 84 39-136 [facility] CenterFrrcjczLJIPVGNQJ6763-07-48 06:27:00 Test Item Value Reference Range Interpretation Comments Bili Total (test code = Bili Total) 0.3 0.2-1.3 [facility] CenterLxdjhxcVASPKAVHL3547-02-92 06:27:00 Test Item Value Reference Range Interpretation Comments Bili Direct (test code no gt See_Comment [Aut omated message] The = Bili Direct) system which generated this result tra nsmitted reference range : <=0.3. The reference r christiano was not used to int erpret this result as edy l/abnormal. [facility] CenterWjherpvWZQPQUVAK0100-64-89 06:27:00 Test Item Value Reference Range Interpretation Comments Bili Indirect Unable to See_Comment [Automated (test code = Bili Calculate message] T he system Indirect) which generated this result transmitted reference range : <=1.0. The reference range was not used to interpret this result as normal/abnormal . [facility] ChildrenUgnyhkuYZPFQOSZT2010-18-41 06:27:00 Test Item Value Reference Range Interpretation Comments pH Justin (test code = pH Justin) 7.29 1 7.28-7.42 [facility] CenterOqzwnymCYWWONDNE7231-04-54 06:27:00 Test Item Value Reference Range Interpretation Comments pCO2 Justin (test code = pCO2 Justin) 65 38-52 [facility] CenterFafxljnVINSSGNGQ7960-86-35 06:27:00 Test Item Value Reference Range Interpretation Comments pO2 Justin (test code = pO2 Justin) 37 20-49 [facility] BudaQbrjcqcEOUBFGKNW6702-41-40 06:27:00 Test Item Value Reference Range Interpretation Comments HCO3 Justin (test code = HCO3 Justin) 31 22-26 [facility] ChildrenWvqvwwsCCJWPDEIY5868-59-44 06:27:00 Test Item Value Reference Range Interpretation Comments BE Justin (test code = BE Justin) 3 -2-2 [facility] CenterPbhfhiaWZKYVGKBJ0113-43-82 06:27:00 Test Item Value Reference Range Interpretation Comments O2 Sat Justin (calc) (test code = O2 Sat 63.0 40.0-70.0 Justin (calc)) [facility] CenterXpbyzdyNHHPZKQDV0195-48-32 06:27:00 Test Item Value Reference Range Interpretation Comments Temp Justin (test code = Temp Justin) 37.0 [facility] ChildrenXrmbqejJQULGTQNC5283-89-89 06:27:00 Test Item Value Reference Range Interpretation Comments Lactic Acid Lvl (test code = Lactic 0.5 0.5-2.2 Acid Lvl) [facility] CenterZeeqsgcZRNEXEGRP0577-01-97 06:27:00 Test Item Value Reference Range Interpretation Comments TSH (test code = TSH) 0.403 0.360-3.740 [facility] HospitalIbjkutuSTOJRCXNAP2224-05-87 06:27:00 Test Item Value Reference Range Interpretation Comments WBC X 10x3 (test code = WBC X 10x3) 5.9 3.7-10.4 [place] 744043-02-27 06:27:00 Test Item Value Reference Range Interpretation Comments RBC X 10x6 (test code = RBC X 10x6) 3.67 4.20-5.40 [facility] HospitalZjfhtbsIAQHEEMUVJ7395-97-28 06:27:00 Test Item Value Reference Range Interpretation Comments Hgb (test code = Hgb) 10.7 12.0-16.0 [facility] HospitalSnkebtaYTPUNHLMYC7453-99-65 06:27:00 Test Item Value Reference Range Interpretation Comments Hct (test code = Hct) 33.5 36.0-48.0 [facility] HospitalYqyssntIHGSHYHGIH9394-86-94 06:27:00 Test Item Value Reference Range Interpretation Comments MCV (test code = MCV) 91.4 80.0-98.0 [place] 744043-02-27 06:27:00 Test Item Value Reference Range Interpretation Comments MCH (test code = MCH) 29.3 pg 27.0-31.0 [facility] HospitalPqvgbqtOIGEXXMNCP8423-39-63 06:27:00 Test Item Value Reference Range Interpretation Comments MCHC (test code = MCHC) 32.0 32.0-36.0 [facility] HospitalSnkoemeNNDEAXIQNC1451-08-44 06:27:00 Test Item Value Reference Range Interpretation Comments RDW (test code = RDW) 13.7 11.5-14.5 [facility] HospitalJwlltpnQQBRKTQAMX4571-28-44 06:27:00 Test Item Value Reference Range Interpretation Comments Platelet (test code = Platelet) 139 133-450 [facility] HospitalCfhjnzdQFJFQZZRRQ3585-27-51 06:27:00 Test Item Value Reference Range Interpretation Comments MPV (test code = MPV) 7.5 7.4-10.4 [place] 744043-02-27 06:27:00 Test Item Value Reference Range Interpretation Comments ACT (TEG) Rapid (test code = ACT (TEG) 121 s 86-118 Rapid) [place] 744043-02-27 06:27:00 Test Item Value Reference Range Interpretation Comments Split Point Rapid (test code = Split 0.6 min Point Rapid) [place] [address]-02-27 06:27:00 Test Item Value Reference Range Interpretation Comments R-time Rapid (test code = R-time 0.8 min 0.4-0.7 Rapid) [place] [address]-02-27 06:27:00 Test Item Value Reference Range Interpretation Comments K-time Rapid (test code = K-time 0.8 min 0.6-2.3 Rapid) [place] [address]-02-27 06:27:00 Test Item Value Reference Range Interpretation Comments Angle Rapid (test code = Angle 79 degrees 64-80 Rapid) [place] [address]-02-27 06:27:00 Test Item Value Reference Range Interpretation Comments Max Amplitude Rapid (test code = Max 71 mm 52-71 Amplitude Rapid) [place] [address]-02-27 06:27:00 Test Item Value Reference Range Interpretation Comments G-value Rapid (test code = G-value 12.1 5.0-11.6 Rapid) [place] [address]-02-27 06:27:00 Test Item Value Reference Range Interpretation Comments Estimated % Lysis Rapid 0.0 See_Comment [Au tomated message] The (test code = Estimated syste m which generated % Lysis Rapid) this result t ransmitted reference range : <=7.5. The reference r christiano was not used to int erpret this result as normal/abnormal . [place]4043-02-27:27:00 Test Item Value Reference Range Interpretation Comments RBC Morph (test code = Normal (11/27/22 12:27 RBC Morph) AM) [place] [address]-02-27 06:27:00 Test Item Value Reference Range Interpretation Comments Plt Morph (test code = Normal (11/27/22 12:27 Plt Morph) AM) [place] [address]-02-27 06:27:00 Test Item Value Reference Range Interpretation Comments Segs (test code = Segs) 60.1 45.0-75.0 [place] [address]-02-27 06:27:00 Test Item Value Reference Range Interpretation Comments Lymphocytes (test code = Lymphocytes) 23.9 20.0-40.0 [place] [address]-02-27 06:27:00 Test Item Value Reference Range Interpretation Comments Monocytes (test code = Monocytes) 9.6 2.0-12.0 [place]4043-02-27 06:27:00 Test Item Value Reference Range Interpretation Comments Eosinophils (test code = 5.2 See_Comment [A utomated message] The Eosinophils) system which ge nerated this result tra nsmitted reference range : <=4.0. The reference r christiano was not used to int erpret this result as normal/abnormal . [place]4043-02-27 06:27:00 Test Item Value Reference Range Interpretation Comments Basophils (test code = 1.2 See_Comment [Aut omated message] The Basophils) system which ge nerated this result tra nsmitted reference range : <=1.0. The reference r christiano was not used to int erpret this result as normal/abnormal . [place]4043-02-27 06:27:00 Test Item Value Reference Range Interpretation Comments Neutrophils # (test code = Neutrophils 3.5 1.5-8.1 #) [place]4043-02-27 06:27:00 Test Item Value Reference Range Interpretation Comments Lymphocytes # (test code = Lymphocytes 1.4 1.0-5.5 #) [place] [address]-02-27 06:27:00 Test Item Value Reference Range Interpretation Comments Monocytes # (test code 0.6 See_Comment [Aut omated message] The = Monocytes #) system which generated this result tra nsmitted reference range : <=0.8. The reference r christiano was not used to int erpret this result as normal/abnormal . [place]4043-02-27 06:27:00 Test Item Value Reference Range Interpretation Comments Eosinophils # (test code 0.3 See_Comment [A utomated message] The = Eosinophils #) system whic h generated this result tra nsmitted reference range : <=0.5. The reference r christiano was not used to int erpret this result as normal/abnormal . [place]4043-02-27 06:27:00 Test Item Value Reference Range Interpretation Comments Basophils # (test code 0.1 See_Comment [Aut omated message] The = Basophils #) system which generated this result tra nsmitted reference range : <=0.2. The reference r christiano was not used to int erpret this result as normal/abnormal . [facility] HospitalFxhvozhGATKQVMUWJ2464-05-83 06:27:00 Test Item Value Reference Range Interpretation Comments ACT (TEG) Rapid (test code = ACT (TEG) 121 s 86-118 Rapid) [facility] HospitalAexzaknNRVWTQNHRY4952-83-89 06:27:00 Test Item Value Reference Range Interpretation Comments Split Point Rapid (test code = Split 0.6 min Point Rapid) [place]4043-02-27 06:27:00 Test Item Value Reference Range Interpretation Comments R-time Rapid (test code = R-time 0.8 min 0.4-0.7 Rapid) [place] [address]-02-27 06:27:00 Test Item Value Reference Range Interpretation Comments K-time Rapid (test code = K-time 0.8 min 0.6-2.3 Rapid) [place] [address]-02-27 06:27:00 Test Item Value Reference Range Interpretation Comments Angle Rapid (test code = Angle 79 degrees 64-80 Rapid) [place]4043-02-27 06:27:00 Test Item Value Reference Range Interpretation Comments Max Amplitude Rapid (test code = Max 71 mm 52-71 Amplitude Rapid) [place] [address]-02-27 06:27:00 Test Item Value Reference Range Interpretation Comments G-value Rapid (test code = G-value 12.1 5.0-11.6 Rapid) [facility] HospitalOwzrebrTFBFZALCKD1839-78-63 06:27:00 Test Item Value Reference Range Interpretation Comments Estimated % Lysis Rapid 0.0 See_Comment [Au tomated message] The (test code = Estimated syste m which generated % Lysis Rapid) this result t ransmitted reference range : <=7.5. The reference r christiano was not used to int erpret this result as normal/abnormal . [facility] HospitalVtosdstCVZOIVVNVU0461-52-98:27:00 Test Item Value Reference Range Interpretation Comments RBC Morph (test code = Normal (11/27/22 12:27 RBC Morph) AM) [facility] HospitalKyskvrkINVQBKNLUK9428-80-06 06:27:00 Test Item Value Reference Range Interpretation Comments Plt Morph (test code = Normal (11/27/22 12:27 Plt Morph) AM) [place]4043-02-27 06:27:00 Test Item Value Reference Range Interpretation Comments Basophils # (test code 0.1 See_Comment [Aut omated message] The = Basophils #) system which generated this result tra nsmitted reference range : <=0.2. The reference r christiano was not used to int erpret this result as normal/abnormal . [facility]2023-02-27 06:27:00 Test Item Value Reference Range Interpretation Comments Glucose Lvl (test code = Glucose Lvl) 85 70-99 [place] 570323-02-27 06:27:00 Test Item Value Reference Range Interpretation Comments BUN (test code = BUN) 28 7-22 [place] 570323-02-27 06:27:00 Test Item Value Reference Range Interpretation Comments Creatinine Lvl (test code = Creatinine 2.19 0.50-1.40 Lvl) [facility]2023-02-27 06:27:00 Test Item Value Reference Range Interpretation Comments Sodium Lvl (test code = Sodium Lvl) 143 135-145 [place] 570323-02-27 06:27:00 Test Item Value Reference Range Interpretation Comments Potassium Lvl (test code = Potassium 4.3 3.5-5.1 Lvl) [facility]2023-02-27 06:27:00 Test Item Value Reference Range Interpretation Comments Chloride Lvl (test code = Chloride Lvl) 110 95-109 [facility]2023-02-27 06:27:00 Test Item Value Reference Range Interpretation Comments CO2 (test code = CO2) 27 24-32 [place] 570323-02-27 06:27:00 Test Item Value Reference Range Interpretation Comments Calcium Lvl (test code = Calcium Lvl) 8.1 8.5-10.5 [place] 570323-02-27 06:27:00 Test Item Value Reference Range Interpretation Comments AGAP (test code = AGAP) 10.3 10.0-20.0 [place] 570323-02-27 06:27:00 Test Item Value Reference Range Interpretation Comments eGFR (test code = eGFR) 22 [place] 570323-02-27 06:27:00 Test Item Value Reference Range Interpretation Comments Total Protein (test code = Total 6.6 6.4-8.4 Protein) [place] 570323-02-27 06:27:00 Test Item Value Reference Range Interpretation Comments Albumin Lvl (test code = Albumin Lvl) 3.0 3.5-5.0 [place] 570323-02-27 06:27:00 Test Item Value Reference Range Interpretation Comments Globulin (test code = Globulin) 3.6 2.7-4.2 [place] 570323-02-27 06:27:00 Test Item Value Reference Range Interpretation Comments A/G Ratio (test code = A/G Ratio) 0.8 1 0.7-1.6 [place] 570323-02-27 06:27:00 Test Item Value Reference Range Interpretation Comments ALANINE AMINOTRANSFERASE 21 See_Comment [A utomated message] (test code = ALANINE The sys tem which AMINOTRANSFERASE) generated this result transmitted ref erence range: <=65. Th e reference range was not used to int erpret this result as normal/abnormal . [facility] [id number] 06:27:00 Test Item Value Reference Range Interpretation Comments AST (test code = AST) 17 See_Comment [Auto mated message] The system which ge nerated this result transmit sheba reference range : <=37. The reference range was not used to interpr et this result as edy l/abnormal. [facility] [id number] 06:27:00 Test Item Value Reference Range Interpretation Comments Alk Phos (test code = Alk Phos) 84 39-136 [place] 570323-02-27 06:27:00 Test Item Value Reference Range Interpretation Comments Bili Total (test code = Bili Total) 0.3 0.2-1.3 [facility] [id number] 06:27:00 Test Item Value Reference Range Interpretation Comments Bili Direct (test code no gt See_Comment [Aut omated message] The = Bili Direct) system which generated this result tra nsmitted reference range : <=0.3. The reference r christiano was not used to int erpret this result as edy l/abnormal. [facility] [id number] 06:27:00 Test Item Value Reference Range Interpretation Comments Bili Indirect Unable to See_Comment [Automated (test code = Bili Calculate message] T he system Indirect) which generated this result transmitted reference range : <=1.0. The reference range was not used to interpret this result as normal/abnormal . [facility]2023-02-27 06:27:00 Test Item Value Reference Range Interpretation Comments Lactic Acid Lvl (test code = Lactic 0.5 0.5-2.2 Acid Lvl) [facility] CenterIsrbttuNWGUXOKJD0909-03-35 06:27:00 Test Item Value Reference Range Interpretation Comments Total Protein (test code = Total 6.6 6.4-8.4 Protein) [facility] CenterQsgnyqeSNOEFBHOC9588-55-07 06:27:00 Test Item Value Reference Range Interpretation Comments Albumin Lvl (test code = Albumin Lvl) 3.0 3.5-5.0 [place] 408583-02-27 06:27:00 Test Item Value Reference Range Interpretation Comments Globulin (test code = Globulin) 3.6 2.7-4.2 [facility] CenterTmgdfidXFMBJQTRU8632-38-64 06:27:00 Test Item Value Reference Range Interpretation Comments A/G Ratio (test code = A/G Ratio) 0.8 1 0.7-1.6 [facility] CenterLslpxlmPXAZHJFSG5585-09-14 06:27:00 Test Item Value Reference Range Interpretation Comments ALANINE AMINOTRANSFERASE 21 See_Comment [A utomated message] (test code = ALANINE The sys tem which AMINOTRANSFERASE) generated this result transmitted ref erence range: <=65. Th e reference range was not used to int erpret this result as normal/abnormal . [facility] CenterKbofyasJPKLQUOAH4098-52-92 06:27:00 Test Item Value Reference Range Interpretation Comments AST (test code = AST) 17 See_Comment [Auto mated message] The system which ge nerated this result transmit sheba reference range : <=37. The reference range was not used to interpr et this result as edy l/abnormal. [facility] CenterQioxtisXFJRHZTZY1263-86-78 06:27:00 Test Item Value Reference Range Interpretation Comments Alk Phos (test code = Alk Phos) 84 39-136 [facility] CenterSrzitkjTVPCXNHSH9354-28-09 06:27:00 Test Item Value Reference Range Interpretation Comments Bili Total (test code = Bili Total) 0.3 0.2-1.3 [place] 408583-02-27 06:27:00 Test Item Value Reference Range Interpretation Comments Bili Direct (test code no gt See_Comment [Aut omated message] The = Bili Direct) system which generated this result tra nsmitted reference range : <=0.3. The reference r christiano was not used to int erpret this result as edy l/abnormal. [facility] CenterAhmxkhqOCYRMJFVL8531-22-75 06:27:00 Test Item Value Reference Range Interpretation Comments Bili Indirect Unable to See_Comment [Automated (test code = Bili Calculate message] T he system Indirect) which generated this result transmitted reference range : <=1.0. The reference range was not used to interpret this result as normal/abnormal . [facility] CenterCdzdkhsYGDBYZILB4532-37-79 06:27:00 Test Item Value Reference Range Interpretation Comments pH Justin (test code = pH Justin) 7.29 1 7.28-7.42 [facility] CenterHeqkmmmKCYYKAGDQ4564-53-54 06:27:00 Test Item Value Reference Range Interpretation Comments pCO2 Justin (test code = pCO2 Justin) 65 38-52 [facility] CenterEeoukomJYYHWSZOI1319-38-71 06:27:00 Test Item Value Reference Range Interpretation Comments pO2 Justin (test code = pO2 Justin) 37 20-49 [facility] CenterZaeyislQMMBHXSLU1933-72-86 06:27:00 Test Item Value Reference Range Interpretation Comments HCO3 Justin (test code = HCO3 Justin) 31 22-26 [facility] CenterJuvnixjLUVIAXKGK7938-56-81 06:27:00 Test Item Value Reference Range Interpretation Comments BE Justin (test code = BE Justin) 3 -2-2 [facility] CenterOomqwqpPZFGHIKZF8533-97-84 06:27:00 Test Item Value Reference Range Interpretation Comments O2 Sat Justin (calc) (test code = O2 Sat 63.0 40.0-70.0 Justin (calc)) [facility] CenterMfcmfvpDQWZKMRUX2892-75-70 06:27:00 Test Item Value Reference Range Interpretation Comments Temp Justin (test code = Temp Justin) 37.0 [facility] CenterSxqthydZGRSVWNFM5742-41-73 06:27:00 Test Item Value Reference Range Interpretation Comments Lactic Acid Lvl (test code = Lactic 0.5 0.5-2.2 Acid Lvl) [facility] CenterIksqobfKWTKEGARF0722-03-26 06:27:00 Test Item Value Reference Range Interpretation Comments TSH (test code = TSH) 0.403 0.360-3.740 [facility]WmvmtkxJHXSHATRYL2700-98-88 06:27:00 Test Item Value Reference Range Interpretation Comments WBC X 10x3 (test code = WBC X 10x3) 5.9 3.7-10.4 [place] 744043-02-27 06:27:00 Test Item Value Reference Range Interpretation Comments RBC X 10x6 (test code = RBC X 10x6) 3.67 4.20-5.40 [place] 744043-02-27 06:27:00 Test Item Value Reference Range Interpretation Comments Hgb (test code = Hgb) 10.7 12.0-16.0 [place] 744043-02-27 06:27:00 Test Item Value Reference Range Interpretation Comments Hct (test code = Hct) 33.5 36.0-48.0 [place] 744043-02-27 06:27:00 Test Item Value Reference Range Interpretation Comments MCV (test code = MCV) 91.4 80.0-98.0 [place] 744043-02-27 06:27:00 Test Item Value Reference Range Interpretation Comments MCH (test code = MCH) 29.3 pg 27.0-31.0 [place] 744043-02-27 06:27:00 Test Item Value Reference Range Interpretation Comments MCHC (test code = MCHC) 32.0 32.0-36.0 [facility] HospitalGpoilcwIPJDRZFIUV4320-47-11 06:27:00 Test Item Value Reference Range Interpretation Comments RDW (test code = RDW) 13.7 11.5-14.5 [place] 744043-02-27 06:27:00 Test Item Value Reference Range Interpretation Comments Platelet (test code = Platelet) 139 133-450 [facility] HospitalVsxgzjgELQUFORBFM3832-24-36 06:27:00 Test Item Value Reference Range Interpretation Comments MPV (test code = MPV) 7.5 7.4-10.4 [place] 744043-02-27 06:27:00 Test Item Value Reference Range Interpretation Comments ACT (TEG) Rapid (test code = ACT (TEG) 121 s 86-118 Rapid) [facility] HospitalBfwaafnJORQNIIWCI2199-91-82 06:27:00 Test Item Value Reference Range Interpretation Comments Split Point Rapid (test code = Split 0.6 min Point Rapid) [facility] HospitalMfmluoyUUMNDXCUTJ3790-93-55 06:27:00 Test Item Value Reference Range Interpretation Comments R-time Rapid (test code = R-time 0.8 min 0.4-0.7 Rapid) [place] [address]-02-27 06:27:00 Test Item Value Reference Range Interpretation Comments K-time Rapid (test code = K-time 0.8 min 0.6-2.3 Rapid) [place] [address]-02-27 06:27:00 Test Item Value Reference Range Interpretation Comments Angle Rapid (test code = Angle 79 degrees 64-80 Rapid) [place] [address]-02-27 06:27:00 Test Item Value Reference Range Interpretation Comments Max Amplitude Rapid (test code = Max 71 mm 52-71 Amplitude Rapid) [place] [address]-02-27 06:27:00 Test Item Value Reference Range Interpretation Comments G-value Rapid (test code = G-value 12.1 5.0-11.6 Rapid) [place] [address]-02-27 06:27:00 Test Item Value Reference Range Interpretation Comments Estimated % Lysis Rapid 0.0 See_Comment [Au tomated message] The (test code = Estimated syste m which generated % Lysis Rapid) this result t ransmitted reference range : <=7.5. The reference r christiano was not used to int erpret this result as normal/abnormal . [place] 744043-02-27 06:27:00 Test Item Value Reference Range Interpretation Comments RBC Morph (test code = Normal (11/27/22 12:27 RBC Morph) AM) [place] [address]-02-27 06:27:00 Test Item Value Reference Range Interpretation Comments Plt Morph (test code = Normal (11/27/22 12:27 Plt Morph) AM) [place] [address]-02-27 06:27:00 Test Item Value Reference Range Interpretation Comments Segs (test code = Segs) 60.1 45.0-75.0 [place] [address]-02-27 06:27:00 Test Item Value Reference Range Interpretation Comments Lymphocytes (test code = Lymphocytes) 23.9 20.0-40.0 [place] [address]-02-27 06:27:00 Test Item Value Reference Range Interpretation Comments Monocytes (test code = Monocytes) 9.6 2.0-12.0 [facility] HospitalCrybejnFUQASYNKGP2058-43-43 06:27:00 Test Item Value Reference Range Interpretation Comments Eosinophils (test code = 5.2 See_Comment [A utomated message] The Eosinophils) system which ge nerated this result tra nsmitted reference range : <=4.0. The reference r christiano was not used to int erpret this result as normal/abnormal . [facility] HospitalXsllspwOVERMUKKQS7943-24-93 06:27:00 Test Item Value Reference Range Interpretation Comments Basophils (test code = 1.2 See_Comment [Aut omated message] The Basophils) system which ge nerated this result tra nsmitted reference range : <=1.0. The reference r christiano was not used to int erpret this result as normal/abnormal . [facility] HospitalMgiyzlxDLKVWQXGYY3432-44-11 06:27:00 Test Item Value Reference Range Interpretation Comments Neutrophils # (test code = Neutrophils 3.5 1.5-8.1 #) [facility] HospitalSajzcyiIRWWMKCDTM2526-86-38 06:27:00 Test Item Value Reference Range Interpretation Comments Lymphocytes # (test code = Lymphocytes 1.4 1.0-5.5 #) [facility] HospitalCguryneTKOEZVWVHR2836-57-95 06:27:00 Test Item Value Reference Range Interpretation Comments Monocytes # (test code 0.6 See_Comment [Aut omated message] The = Monocytes #) system which generated this result tra nsmitted reference range : <=0.8. The reference r christiano was not used to int erpret this result as normal/abnormal . [facility] HospitalIjnoxzjVMJTVFJIAP8901-90-09 06:27:00 Test Item Value Reference Range Interpretation Comments Eosinophils # (test code 0.3 See_Comment [A utomated message] The = Eosinophils #) system whic h generated this result tra nsmitted reference range : <=0.5. The reference r christiano was not used to int erpret this result as normal/abnormal . [facility] HospitalXpaujkmEFIKXQKHVX5073-21-80 06:27:00 Test Item Value Reference Range Interpretation Comments Basophils # (test code 0.1 See_Comment [Aut omated message] The = Basophils #) system which generated this result tra nsmitted reference range : <=0.2. The reference r christiano was not used to int erpret this result as normal/abnormal . [place] 744043-02-27 06:27:00 Test Item Value Reference Range Interpretation Comments ACT (TEG) Rapid (test code = ACT (TEG) 121 s 86-118 Rapid) [place] 744043-02-27 06:27:00 Test Item Value Reference Range Interpretation Comments Split Point Rapid (test code = Split 0.6 min Point Rapid) [place] 744043-02-27 06:27:00 Test Item Value Reference Range Interpretation Comments R-time Rapid (test code = R-time 0.8 min 0.4-0.7 Rapid) [place] [address]-02-27 06:27:00 Test Item Value Reference Range Interpretation Comments K-time Rapid (test code = K-time 0.8 min 0.6-2.3 Rapid) [place] [address]-02-27 06:27:00 Test Item Value Reference Range Interpretation Comments Angle Rapid (test code = Angle 79 degrees 64-80 Rapid) [place] [address]-02-27 06:27:00 Test Item Value Reference Range Interpretation Comments Max Amplitude Rapid (test code = Max 71 mm 52-71 Amplitude Rapid) [place] [address]-02-27 06:27:00 Test Item Value Reference Range Interpretation Comments G-value Rapid (test code = G-value 12.1 5.0-11.6 Rapid) [place] [address]-02-27 06:27:00 Test Item Value Reference Range Interpretation Comments Estimated % Lysis Rapid 0.0 See_Comment [Au tomated message] The (test code = Estimated syste m which generated % Lysis Rapid) this result t ransmitted reference range : <=7.5. The reference r christiano was not used to int erpret this result as normal/abnormal . [facility] HospitalOhfitltJVICGZWMVB3667-19-67 06:27:00 Test Item Value Reference Range Interpretation Comments RBC Morph (test code = Normal (11/27/22 12:27 RBC Morph) AM) [place] 744043-02-27 06:27:00 Test Item Value Reference Range Interpretation Comments Plt Morph (test code = Normal (11/27/22 12:27 Plt Morph) AM) [place] 744043-02-27 06:27:00 Test Item Value Reference Range Interpretation Comments Basophils # (test code 0.1 See_Comment [Aut omated message] The = Basophils #) system which generated this result tra nsmitted reference range : <=0.2. The reference r christiano was not used to int erpret this result as normal/abnormal . [facility]2023-02-27 06:27:00 Test Item Value Reference Range Interpretation Comments Glucose Lvl (test code = Glucose Lvl) 85 70-99 [place] 570323-02-27 06:27:00 Test Item Value Reference Range Interpretation Comments BUN (test code = BUN) 28 7-22 [place] 570323-02-27 06:27:00 Test Item Value Reference Range Interpretation Comments Creatinine Lvl (test code = Creatinine 2.19 0.50-1.40 Lvl) [place] 570323-02-27 06:27:00 Test Item Value Reference Range Interpretation Comments Sodium Lvl (test code = Sodium Lvl) 143 135-145 [place] 570323-02-27 06:27:00 Test Item Value Reference Range Interpretation Comments Potassium Lvl (test code = Potassium 4.3 3.5-5.1 Lvl) [place] 570323-02-27 06:27:00 Test Item Value Reference Range Interpretation Comments Chloride Lvl (test code = Chloride Lvl) 110 95-109 [place] 570323-02-27 06:27:00 Test Item Value Reference Range Interpretation Comments CO2 (test code = CO2) 27 24-32 [place] 570323-02-27 06:27:00 Test Item Value Reference Range Interpretation Comments Calcium Lvl (test code = Calcium Lvl) 8.1 8.5-10.5 [place] 570323-02-27 06:27:00 Test Item Value Reference Range Interpretation Comments AGAP (test code = AGAP) 10.3 10.0-20.0 [place] 570323-02-27 06:27:00 Test Item Value Reference Range Interpretation Comments eGFR (test code = eGFR) 22 [place] 570323-02-27 06:27:00 Test Item Value Reference Range Interpretation Comments Total Protein (test code = Total 6.6 6.4-8.4 Protein) [place] 570323-02-27 06:27:00 Test Item Value Reference Range Interpretation Comments Albumin Lvl (test code = Albumin Lvl) 3.0 3.5-5.0 [place] 570323-02-27 06:27:00 Test Item Value Reference Range Interpretation Comments Globulin (test code = Globulin) 3.6 2.7-4.2 [place] 570323-02-27 06:27:00 Test Item Value Reference Range Interpretation Comments A/G Ratio (test code = A/G Ratio) 0.8 1 0.7-1.6 [place] 570323-02-27 06:27:00 Test Item Value Reference Range Interpretation Comments ALANINE AMINOTRANSFERASE 21 See_Comment [A utomated message] (test code = ALANINE The sys tem which AMINOTRANSFERASE) generated this result transmitted ref erence range: <=65. Th e reference range was not used to int erpret this result as normal/abnormal . [facility] [id number] 06:27:00 Test Item Value Reference Range Interpretation Comments AST (test code = AST) 17 See_Comment [Auto mated message] The system which ge nerated this result transmit sheba reference range : <=37. The reference range was not used to interpr et this result as edy l/abnormal. [facility] MRYIX2831-36-16 06:27:00 Test Item Value Reference Range Interpretation Comments Alk Phos (test code = Alk Phos) 84 39-136 [place] 570323-02-27 06:27:00 Test Item Value Reference Range Interpretation Comments Bili Total (test code = Bili Total) 0.3 0.2-1.3 [place] [address]-02-27 06:27:00 Test Item Value Reference Range Interpretation Comments Bili Direct (test code no gt See_Comment [Aut omated message] The = Bili Direct) system which generated this result tra nsmitted reference range : <=0.3. The reference r christiano was not used to int erpret this result as edy l/abnormal. [facility] SZSTM5111-03-46 06:27:00 Test Item Value Reference Range Interpretation Comments Bili Indirect Unable to See_Comment [Automated (test code = Bili Calculate message] T he system Indirect) which generated this result transmitted reference range : <=1.0. The reference range was not used to interpret this result as normal/abnormal . [facility]2023-02-27 06:27:00 Test Item Value Reference Range Interpretation Comments Lactic Acid Lvl (test code = Lactic 0.5 0.5-2.2 Acid Lvl) [facility] CenterGxurapmDJXKNMCSO2802-81-57 06:27:00 Test Item Value Reference Range Interpretation Comments Total Protein (test code = Total 6.6 6.4-8.4 Protein) [facility] CenterKmhthmhUZOJWZQNV6116-09-02 06:27:00 Test Item Value Reference Range Interpretation Comments Albumin Lvl (test code = Albumin Lvl) 3.0 3.5-5.0 [facility] CenterGcifuccSGMKKZMDA8327-98-29 06:27:00 Test Item Value Reference Range Interpretation Comments Globulin (test code = Globulin) 3.6 2.7-4.2 [facility] CenterBkrtkoiMNNWIZKER9126-82-02 06:27:00 Test Item Value Reference Range Interpretation Comments A/G Ratio (test code = A/G Ratio) 0.8 1 0.7-1.6 [facility] CenterXvpcfkdGGPVXDQZZ7763-98-76 06:27:00 Test Item Value Reference Range Interpretation Comments ALANINE AMINOTRANSFERASE 21 See_Comment [A utomated message] (test code = ALANINE The sys tem which AMINOTRANSFERASE) generated this result transmitted ref erence range: <=65. Th e reference range was not used to int erpret this result as normal/abnormal . [facility] CenterAzhefukTKNJAQLMQ7962-84-89 06:27:00 Test Item Value Reference Range Interpretation Comments AST (test code = AST) 17 See_Comment [Auto mated message] The system which ge nerated this result transmit sheba reference range : <=37. The reference range was not used to interpr et this result as edy l/abnormal. [facility] CenterIemoftjSLWIDYAXN5630-36-30 06:27:00 Test Item Value Reference Range Interpretation Comments Alk Phos (test code = Alk Phos) 84 39-136 [facility] CenterEypwinnLTWZXPVEJ0253-00-22 06:27:00 Test Item Value Reference Range Interpretation Comments Bili Total (test code = Bili Total) 0.3 0.2-1.3 [place] 408583-02-27 06:27:00 Test Item Value Reference Range Interpretation Comments Bili Direct (test code no gt See_Comment [Aut omated message] The = Bili Direct) system which generated this result tra nsmitted reference range : <=0.3. The reference r christiano was not used to int erpret this result as edy l/abnormal. [facility] CenterNapugafLYBSLGPFJ5983-58-75 06:27:00 Test Item Value Reference Range Interpretation Comments Bili Indirect Unable to See_Comment [Automated (test code = Bili Calculate message] T he system Indirect) which generated this result transmitted reference range : <=1.0. The reference range was not used to interpret this result as normal/abnormal . [facility] CenterDfztanyOLAPLJTOO3307-32-30 06:27:00 Test Item Value Reference Range Interpretation Comments pH Justin (test code = pH Justin) 7.29 1 7.28-7.42 [facility] CenterFdgeuccMXMNVENLI1266-50-83 06:27:00 Test Item Value Reference Range Interpretation Comments pCO2 Justin (test code = pCO2 Justin) 65 38-52 [facility] CenterDmzbccpNJSMJRVWG7132-63-31 06:27:00 Test Item Value Reference Range Interpretation Comments pO2 Justin (test code = pO2 Justin) 37 20-49 [facility] CenterAdrhjcaTOUROEESW0773-94-61 06:27:00 Test Item Value Reference Range Interpretation Comments HCO3 Justin (test code = HCO3 Justin) 31 22-26 [facility] CenterIcpgjsiJAQSCOWVN8066-12-42 06:27:00 Test Item Value Reference Range Interpretation Comments BE Justin (test code = BE Justin) 3 -2-2 [facility] CenterNmojvrfKJQDNDLEO4950-90-05 06:27:00 Test Item Value Reference Range Interpretation Comments O2 Sat Justin (calc) (test code = O2 Sat 63.0 40.0-70.0 Justin (calc)) [facility] CenterLzvbgqsRKRULNKTT7301-13-88 06:27:00 Test Item Value Reference Range Interpretation Comments Temp Justin (test code = Temp Justin) 37.0 [facility] CenterXnxtzfdRJAAQOBDG9448-33-76 06:27:00 Test Item Value Reference Range Interpretation Comments Lactic Acid Lvl (test code = Lactic 0.5 0.5-2.2 Acid Lvl) [facility] CenterRiowtrqYJHWSQXLP8119-43-76 06:27:00 Test Item Value Reference Range Interpretation Comments TSH (test code = TSH) 0.403 0.360-3.740 [facility] HospitalZotnnczSSAXSQLLLC1927-09-07 06:27:00 Test Item Value Reference Range Interpretation Comments WBC X 10x3 (test code = WBC X 10x3) 5.9 3.7-10.4 [facility] HospitalJtkudzzJGLURLWRGH9620-89-93 06:27:00 Test Item Value Reference Range Interpretation Comments RBC X 10x6 (test code = RBC X 10x6) 3.67 4.20-5.40 [facility] HospitalXveqyqiQXMUPBWEGR5363-81-50 06:27:00 Test Item Value Reference Range Interpretation Comments Hgb (test code = Hgb) 10.7 12.0-16.0 [facility] HospitalNregmojQITMMQALQY6124-21-31 06:27:00 Test Item Value Reference Range Interpretation Comments Hct (test code = Hct) 33.5 36.0-48.0 [facility] HospitalEfomwgpDZFHHISPCE9846-79-19 06:27:00 Test Item Value Reference Range Interpretation Comments MCV (test code = MCV) 91.4 80.0-98.0 [facility] HospitalBkzxmywTQFPQSKMXX0511-18-93 06:27:00 Test Item Value Reference Range Interpretation Comments MCH (test code = MCH) 29.3 pg 27.0-31.0 [facility] HospitalXjequxdYJCNCUWTAQ1154-15-67 06:27:00 Test Item Value Reference Range Interpretation Comments MCHC (test code = MCHC) 32.0 32.0-36.0 [facility] HospitalMxhxoiuZWMSUVGVBN2356-55-33 06:27:00 Test Item Value Reference Range Interpretation Comments RDW (test code = RDW) 13.7 11.5-14.5 [facility] HospitalLztktejJPWBHBBJJI0701-24-00 06:27:00 Test Item Value Reference Range Interpretation Comments Platelet (test code = Platelet) 139 133-450 [facility] HospitalQakhqptXIDZHGUIXO3815-62-88 06:27:00 Test Item Value Reference Range Interpretation Comments MPV (test code = MPV) 7.5 7.4-10.4 [place] 744043-02-27 06:27:00 Test Item Value Reference Range Interpretation Comments ACT (TEG) Rapid (test code = ACT (TEG) 121 s 86-118 Rapid) [facility] HospitalNtaxfzcNQCKVVXVRT6901-63-61 06:27:00 Test Item Value Reference Range Interpretation Comments Split Point Rapid (test code = Split 0.6 min Point Rapid) [facility] HospitalMtpacjwTPBXKZABEH0243-50-31 06:27:00 Test Item Value Reference Range Interpretation Comments R-time Rapid (test code = R-time 0.8 min 0.4-0.7 Rapid) [facility]kkzlcoHDEPERDWVL2397[facility]52-74 06:27:00 Test Item Value Reference Range Interpretation Comments K-time Rapid (test code = K-time 0.8 min 0.6-2.3 Rapid) [place] 744043-02-27 06:27:00 Test Item Value Reference Range Interpretation Comments Angle Rapid (test code = Angle 79 degrees 64-80 Rapid) [place] 744043-02-27 06:27:00 Test Item Value Reference Range Interpretation Comments Max Amplitude Rapid (test code = Max 71 mm 52-71 Amplitude Rapid) [place] [address]-02-27 06:27:00 Test Item Value Reference Range Interpretation Comments G-value Rapid (test code = G-value 12.1 5.0-11.6 Rapid) [facility]MtwhjhsZCAQTCSESD3081-22-70 06:27:00 Test Item Value Reference Range Interpretation Comments Estimated % Lysis Rapid 0.0 See_Comment [Au tomated message] The (test code = Estimated syste m which generated % Lysis Rapid) this result t ransmitted reference range : <=7.5. The reference r christiano was not used to int erpret this result as normal/abnormal . [facility] HospitalIuuhcwhXFJKGIGKXV0688-65-57 06:27:00 Test Item Value Reference Range Interpretation Comments RBC Morph (test code = Normal (11/27/22 12:27 RBC Morph) AM) [facility]FpxwwekFODWCUDTOA6364-57-57 06:27:00 Test Item Value Reference Range Interpretation Comments Plt Morph (test code = Normal (11/27/22 12:27 Plt Morph) AM) [place] 744043-02-27 06:27:00 Test Item Value Reference Range Interpretation Comments Segs (test code = Segs) 60.1 45.0-75.0 [place] 744043-02-27 06:27:00 Test Item Value Reference Range Interpretation Comments Lymphocytes (test code = Lymphocytes) 23.9 20.0-40.0 [place] 744043-02-27 06:27:00 Test Item Value Reference Range Interpretation Comments Monocytes (test code = Monocytes) 9.6 2.0-12.0 [place] [address]-02-27 06:27:00 Test Item Value Reference Range Interpretation Comments Eosinophils (test code = 5.2 See_Comment [A utomated message] The Eosinophils) system which ge nerated this result tra nsmitted reference range : <=4.0. The reference r christiano was not used to int erpret this result as normal/abnormal . [place] 744043-02-27 06:27:00 Test Item Value Reference Range Interpretation Comments Basophils (test code = 1.2 See_Comment [Aut omated message] The Basophils) system which ge nerated this result tra nsmitted reference range : <=1.0. The reference r christiano was not used to int erpret this result as normal/abnormal . [place] 744043-02-27 06:27:00 Test Item Value Reference Range Interpretation Comments Neutrophils # (test code = Neutrophils 3.5 1.5-8.1 #) [place] [address]-02-27 06:27:00 Test Item Value Reference Range Interpretation Comments Lymphocytes # (test code = Lymphocytes 1.4 1.0-5.5 #) [place] [address]-02-27 06:27:00 Test Item Value Reference Range Interpretation Comments Monocytes # (test code 0.6 See_Comment [Aut omated message] The = Monocytes #) system which generated this result tra nsmitted reference range : <=0.8. The reference r christiano was not used to int erpret this result as normal/abnormal . [place] 744043-02-27 06:27:00 Test Item Value Reference Range Interpretation Comments Eosinophils # (test code 0.3 See_Comment [A utomated message] The = Eosinophils #) system whic h generated this result tra nsmitted reference range : <=0.5. The reference r christiano was not used to int erpret this result as normal/abnormal . [place] 744043-02-27 06:27:00 Test Item Value Reference Range Interpretation Comments Basophils # (test code 0.1 See_Comment [Aut omated message] The = Basophils #) system which generated this result tra nsmitted reference range : <=0.2. The reference r christiano was not used to int erpret this result as normal/abnormal . [place] 744043-02-27 06:27:00 Test Item Value Reference Range Interpretation Comments ACT (TEG) Rapid (test code = ACT (TEG) 121 s 86-118 Rapid) [place] 744043-02-27 06:27:00 Test Item Value Reference Range Interpretation Comments Split Point Rapid (test code = Split 0.6 min Point Rapid) [place] [address]-02-27 06:27:00 Test Item Value Reference Range Interpretation Comments R-time Rapid (test code = R-time 0.8 min 0.4-0.7 Rapid) [place] 744043-02-27 06:27:00 Test Item Value Reference Range Interpretation Comments K-time Rapid (test code = K-time 0.8 min 0.6-2.3 Rapid) [place] [address]-02-27 06:27:00 Test Item Value Reference Range Interpretation Comments Angle Rapid (test code = Angle 79 degrees 64-80 Rapid) [place] [address]-02-27 06:27:00 Test Item Value Reference Range Interpretation Comments Max Amplitude Rapid (test code = Max 71 mm 52-71 Amplitude Rapid) [place] [address]-02-27 06:27:00 Test Item Value Reference Range Interpretation Comments G-value Rapid (test code = G-value 12.1 5.0-11.6 Rapid) [place] [address]-02-27 06:27:00 Test Item Value Reference Range Interpretation Comments Estimated % Lysis Rapid 0.0 See_Comment [Au tomated message] The (test code = Estimated syste m which generated % Lysis Rapid) this result t ransmitted reference range : <=7.5. The reference r christiano was not used to int erpret this result as normal/abnormal . [facility] HospitalFnymcjsJVVOUFMTVY9150-25-27 06:27:00 Test Item Value Reference Range Interpretation Comments RBC Morph (test code = Normal (11/27/22 12:27 RBC Morph) AM) [place] [address]-02-27 06:27:00 Test Item Value Reference Range Interpretation Comments Plt Morph (test code = Normal (11/27/22 12:27 Plt Morph) AM) [place] [address]-02-27 06:27:00 Test Item Value Reference Range Interpretation Comments Basophils # (test code 0.1 See_Comment [Aut omated message] The = Basophils #) system which generated this result tra nsmitted reference range : <=0.2. The reference r christiano was not used to int erpret this result as normal/abnormal . [facility] GHFCJ9788-64-55 06:27:00 Test Item Value Reference Range Interpretation Comments Glucose Lvl (test code = Glucose Lvl) 85 70-99 [place] 570323-02-27 06:27:00 Test Item Value Reference Range Interpretation Comments BUN (test code = BUN) 28 7-22 [place] 570323-02-27 06:27:00 Test Item Value Reference Range Interpretation Comments Creatinine Lvl (test code = Creatinine 2.19 0.50-1.40 Lvl) [place] 570323-02-27 06:27:00 Test Item Value Reference Range Interpretation Comments Sodium Lvl (test code = Sodium Lvl) 143 135-145 [place] 570323-02-27 06:27:00 Test Item Value Reference Range Interpretation Comments Potassium Lvl (test code = Potassium 4.3 3.5-5.1 Lvl) [place] 570323-02-27 06:27:00 Test Item Value Reference Range Interpretation Comments Chloride Lvl (test code = Chloride Lvl) 110 95-109 [facility]2023-02-27 06:27:00 Test Item Value Reference Range Interpretation Comments CO2 (test code = CO2) 27 24-32 [place] 570323-02-27 06:27:00 Test Item Value Reference Range Interpretation Comments Calcium Lvl (test code = Calcium Lvl) 8.1 8.5-10.5 [place] 570323-02-27 06:27:00 Test Item Value Reference Range Interpretation Comments AGAP (test code = AGAP) 10.3 10.0-20.0 [place] 570323-02-27 06:27:00 Test Item Value Reference Range Interpretation Comments eGFR (test code = eGFR) 22 [place] 570323-02-27 06:27:00 Test Item Value Reference Range Interpretation Comments Total Protein (test code = Total 6.6 6.4-8.4 Protein) [place] 570323-02-27 06:27:00 Test Item Value Reference Range Interpretation Comments Albumin Lvl (test code = Albumin Lvl) 3.0 3.5-5.0 [facility] KZGOE2491-07-43 06:27:00 Test Item Value Reference Range Interpretation Comments Globulin (test code = Globulin) 3.6 2.7-4.2 [facility] [id number] 06:27:00 Test Item Value Reference Range Interpretation Comments A/G Ratio (test code = A/G Ratio) 0.8 1 0.7-1.6 [facility] EOWMU8747-21-78 06:27:00 Test Item Value Reference Range Interpretation Comments ALANINE AMINOTRANSFERASE 21 See_Comment [A utomated message] (test code = ALANINE The sys tem which AMINOTRANSFERASE) generated this result transmitted ref erence range: <=65. Th e reference range was not used to int erpret this result as normal/abnormal . [facility] [id number] 06:27:00 Test Item Value Reference Range Interpretation Comments AST (test code = AST) 17 See_Comment [Auto mated message] The system which ge nerated this result transmit sheba reference range : <=37. The reference range was not used to interpr et this result as edy l/abnormal. [facility] [id number] 06:27:00 Test Item Value Reference Range Interpretation Comments Alk Phos (test code = Alk Phos) 84 39-136 [facility] [id number] 06:27:00 Test Item Value Reference Range Interpretation Comments Bili Total (test code = Bili Total) 0.3 0.2-1.3 [facility] [id number] 06:27:00 Test Item Value Reference Range Interpretation Comments Bili Direct (test code no gt See_Comment [Aut omated message] The = Bili Direct) system which generated this result tra nsmitted reference range : <=0.3. The reference r christiano was not used to int erpret this result as edy l/abnormal. [facility] [employer] [id number] 06:27:00 Test Item Value Reference Range Interpretation Comments Bili Indirect Unable to See_Comment [Automated (test code = Bili Calculate message] T he system Indirect) which generated this result transmitted reference range : <=1.0. The reference range was not used to interpret this result as normal/abnormal . [facility]2023-02-27 06:27:00 Test Item Value Reference Range Interpretation Comments Lactic Acid Lvl (test code = Lactic 0.5 0.5-2.2 Acid Lvl) [facility] CenterGibcikpXGIGMCMAK0117-33-50 06:27:00 Test Item Value Reference Range Interpretation Comments Total Protein (test code = Total 6.6 6.4-8.4 Protein) [facility] CenterUejbsdwHKFQAYQKT7351-28-31 06:27:00 Test Item Value Reference Range Interpretation Comments Albumin Lvl (test code = Albumin Lvl) 3.0 3.5-5.0 [place] [address]-02-27 06:27:00 Test Item Value Reference Range Interpretation Comments Globulin (test code = Globulin) 3.6 2.7-4.2 [facility] CenterElzeiggDVEMBRLOJ1896-09-82 06:27:00 Test Item Value Reference Range Interpretation Comments A/G Ratio (test code = A/G Ratio) 0.8 1 0.7-1.6 [place] [address]-02-27 06:27:00 Test Item Value Reference Range Interpretation Comments ALANINE AMINOTRANSFERASE 21 See_Comment [A utomated message] (test code = ALANINE The sys tem which AMINOTRANSFERASE) generated this result transmitted ref erence range: <=65. Th e reference range was not used to int erpret this result as normal/abnormal . [facility] CenterCgrmzpwQCGRDCMXR8745-76-93 06:27:00 Test Item Value Reference Range Interpretation Comments AST (test code = AST) 17 See_Comment [Auto mated message] The system which ge nerated this result transmit sheba reference range : <=37. The reference range was not used to interpr et this result as edy l/abnormal. [facility] CenterVxhyyhzASJPXGIRA4341-18-38 06:27:00 Test Item Value Reference Range Interpretation Comments Alk Phos (test code = Alk Phos) 84 39-136 [facility] CenterOyhtelgPSRZBPGVU6051-73-75 06:27:00 Test Item Value Reference Range Interpretation Comments Bili Total (test code = Bili Total) 0.3 0.2-1.3 [facility] CenterFolmqovHRYMEWSSG3140-68-87 06:27:00 Test Item Value Reference Range Interpretation Comments Bili Direct (test code no gt See_Comment [Aut omated message] The = Bili Direct) system which generated this result tra nsmitted reference range : <=0.3. The reference r christiano was not used to int erpret this result as edy l/abnormal. [facility] CenterWxdnfgyHZTLHLYYP5385-23-17 06:27:00 Test Item Value Reference Range Interpretation Comments Bili Indirect Unable to See_Comment [Automated (test code = Bili Calculate message] T he system Indirect) which generated this result transmitted reference range : <=1.0. The reference range was not used to interpret this result as normal/abnormal . [facility] CenterXhwrjxzJIQKHLMMN7478-36-63 06:27:00 Test Item Value Reference Range Interpretation Comments pH Justin (test code = pH Justin) 7.29 1 7.28-7.42 [facility] CenterKofuutnUVNKASXXN0273-62-13 06:27:00 Test Item Value Reference Range Interpretation Comments pCO2 Justin (test code = pCO2 Justin) 65 38-52 [facility] CenterPfocnxbJWBXQFHZA7798-37-17 06:27:00 Test Item Value Reference Range Interpretation Comments pO2 Justin (test code = pO2 Justin) 37 20-49 [facility] CenterMidvtojXIEAPVEWB9148-00-71 06:27:00 Test Item Value Reference Range Interpretation Comments HCO3 Justin (test code = HCO3 Justin) 31 22-26 [facility] CenterPflvpipCZSOUMKNK4553-96-79 06:27:00 Test Item Value Reference Range Interpretation Comments BE Justin (test code = BE Justin) 3 -2-2 [facility] CenterPjozxmxSYTUNDPHK5240-22-12 06:27:00 Test Item Value Reference Range Interpretation Comments O2 Sat Justin (calc) (test code = O2 Sat 63.0 40.0-70.0 Justin (calc)) [facility] CenterSsjetplRKHDJIFBG1798-86-21 06:27:00 Test Item Value Reference Range Interpretation Comments Temp Justin (test code = Temp Justin) 37.0 [facility] CenterNlhmwozBYJVCTAWP0958-04-31 06:27:00 Test Item Value Reference Range Interpretation Comments Lactic Acid Lvl (test code = Lactic 0.5 0.5-2.2 Acid Lvl) [facility] CenterAreaxkaEADTFOPNF4932-84-62 06:27:00 Test Item Value Reference Range Interpretation Comments TSH (test code = TSH) 0.403 0.360-3.740 [facility] HospitalGxfoktpHWIBHDVPSC3443-34-95 06:27:00 Test Item Value Reference Range Interpretation Comments WBC X 10x3 (test code = WBC X 10x3) 5.9 3.7-10.4 [facility] HospitalWzfuhmpAWFXLKICFI0317-44-05 06:27:00 Test Item Value Reference Range Interpretation Comments RBC X 10x6 (test code = RBC X 10x6) 3.67 4.20-5.40 [place] 744043-02-27 06:27:00 Test Item Value Reference Range Interpretation Comments Hgb (test code = Hgb) 10.7 12.0-16.0 [facility] HospitalDsyfcwzMUWHSLBDGJ8405-32-92 06:27:00 Test Item Value Reference Range Interpretation Comments Hct (test code = Hct) 33.5 36.0-48.0 [facility] HospitalRpufqkrNMIFCWZPDH4387-36-87 06:27:00 Test Item Value Reference Range Interpretation Comments MCV (test code = MCV) 91.4 80.0-98.0 [facility] HospitalYzvnefjDLMJNIHYFU8970-04-66 06:27:00 Test Item Value Reference Range Interpretation Comments MCH (test code = MCH) 29.3 pg 27.0-31.0 [facility] HospitalYwzgipgMJQUTALZPZ2211-57-12 06:27:00 Test Item Value Reference Range Interpretation Comments MCHC (test code = MCHC) 32.0 32.0-36.0 [facility] HospitalOlinabuWBOXHZDUSS3689-53-30 06:27:00 Test Item Value Reference Range Interpretation Comments RDW (test code = RDW) 13.7 11.5-14.5 [facility] HospitalPuzrktmWJUJFAPYYX3992-88-59 06:27:00 Test Item Value Reference Range Interpretation Comments Platelet (test code = Platelet) 139 133-450 [facility] HospitalFnzxzsxNUYTBPXZAQ7297-73-69 06:27:00 Test Item Value Reference Range Interpretation Comments MPV (test code = MPV) 7.5 7.4-10.4 [place] 744043-02-27 06:27:00 Test Item Value Reference Range Interpretation Comments ACT (TEG) Rapid (test code = ACT (TEG) 121 s 86-118 Rapid) [facility] HospitalFjxrqvhKOWORXEYZL2605-36-34 06:27:00 Test Item Value Reference Range Interpretation Comments Split Point Rapid (test code = Split 0.6 min Point Rapid) [facility] HospitalVatspydVWHPMUHGBY3379-76-12 06:27:00 Test Item Value Reference Range Interpretation Comments R-time Rapid (test code = R-time 0.8 min 0.4-0.7 Rapid) [place] [address]-02-27 06:27:00 Test Item Value Reference Range Interpretation Comments K-time Rapid (test code = K-time 0.8 min 0.6-2.3 Rapid) [place] [address]-02-27 06:27:00 Test Item Value Reference Range Interpretation Comments Angle Rapid (test code = Angle 79 degrees 64-80 Rapid) [place] [address]-02-27 06:27:00 Test Item Value Reference Range Interpretation Comments Max Amplitude Rapid (test code = Max 71 mm 52-71 Amplitude Rapid) [place] [address]-02-27 06:27:00 Test Item Value Reference Range Interpretation Comments G-value Rapid (test code = G-value 12.1 5.0-11.6 Rapid) [place] [address]-02-27 06:27:00 Test Item Value Reference Range Interpretation Comments Estimated % Lysis Rapid 0.0 See_Comment [Au tomated message] The (test code = Estimated syste m which generated % Lysis Rapid) this result t ransmitted reference range : <=7.5. The reference r christiano was not used to int erpret this result as normal/abnormal . [facility] HospitalIdvzvjnVHTTTJKAIR9123-67-77 06:27:00 Test Item Value Reference Range Interpretation Comments RBC Morph (test code = Normal (11/27/22 12:27 RBC Morph) AM) [place] [address]-02-27 06:27:00 Test Item Value Reference Range Interpretation Comments Plt Morph (test code = Normal (11/27/22 12:27 Plt Morph) AM) [place] [address]-02-27 06:27:00 Test Item Value Reference Range Interpretation Comments Segs (test code = Segs) 60.1 45.0-75.0 [place] [address]-02-27 06:27:00 Test Item Value Reference Range Interpretation Comments Lymphocytes (test code = Lymphocytes) 23.9 20.0-40.0 [place] [address]-02-27 06:27:00 Test Item Value Reference Range Interpretation Comments Monocytes (test code = Monocytes) 9.6 2.0-12.0 [place] [address]-02-27 06:27:00 Test Item Value Reference Range Interpretation Comments Eosinophils (test code = 5.2 See_Comment [A utomated message] The Eosinophils) system which ge nerated this result tra nsmitted reference range : <=4.0. The reference r christiano was not used to int erpret this result as normal/abnormal . [facility] HospitalCzhuoawAEELGVDAMO4019-67-61 06:27:00 Test Item Value Reference Range Interpretation Comments Basophils (test code = 1.2 See_Comment [Aut omated message] The Basophils) system which ge nerated this result tra nsmitted reference range : <=1.0. The reference r christiano was not used to int erpret this result as normal/abnormal . [place] 744043-02-27 06:27:00 Test Item Value Reference Range Interpretation Comments Neutrophils # (test code = Neutrophils 3.5 1.5-8.1 #) [facility] HospitalYgiubnySYFLMLKNFH8637-66-58 06:27:00 Test Item Value Reference Range Interpretation Comments Lymphocytes # (test code = Lymphocytes 1.4 1.0-5.5 #) [facility] HospitalYyplyebWXEZIBFKPJ8859-33-18 06:27:00 Test Item Value Reference Range Interpretation Comments Monocytes # (test code 0.6 See_Comment [Aut omated message] The = Monocytes #) system which generated this result tra nsmitted reference range : <=0.8. The reference r christiano was not used to int erpret this result as normal/abnormal . [facility] HospitalXtqvdtrRNUYPDQGYL3454-57-34 06:27:00 Test Item Value Reference Range Interpretation Comments Eosinophils # (test code 0.3 See_Comment [A utomated message] The = Eosinophils #) system whic h generated this result tra nsmitted reference range : <=0.5. The reference r christiano was not used to int erpret this result as normal/abnormal . [facility] HospitalJpvixkjEEOLFKVFCV9254-33-44 06:27:00 Test Item Value Reference Range Interpretation Comments Basophils # (test code 0.1 See_Comment [Aut omated message] The = Basophils #) system which generated this result tra nsmitted reference range : <=0.2. The reference r christiano was not used to int erpret this result as normal/abnormal . [facility] HospitalQcnvomeCVVMNHFYVQ4840-64-54 06:27:00 Test Item Value Reference Range Interpretation Comments ACT (TEG) Rapid (test code = ACT (TEG) 121 s 86-118 Rapid) [place] 744043-02-27 06:27:00 Test Item Value Reference Range Interpretation Comments Split Point Rapid (test code = Split 0.6 min Point Rapid) [place] 744043-02-27 06:27:00 Test Item Value Reference Range Interpretation Comments R-time Rapid (test code = R-time 0.8 min 0.4-0.7 Rapid) [place] 744043-02-27 06:27:00 Test Item Value Reference Range Interpretation Comments K-time Rapid (test code = K-time 0.8 min 0.6-2.3 Rapid) [place] [address]-02-27 06:27:00 Test Item Value Reference Range Interpretation Comments Angle Rapid (test code = Angle 79 degrees 64-80 Rapid) [place] [address]-02-27 06:27:00 Test Item Value Reference Range Interpretation Comments Max Amplitude Rapid (test code = Max 71 mm 52-71 Amplitude Rapid) [place] [address]-02-27 06:27:00 Test Item Value Reference Range Interpretation Comments G-value Rapid (test code = G-value 12.1 5.0-11.6 Rapid) [place] [address]-02-27 06:27:00 Test Item Value Reference Range Interpretation Comments Estimated % Lysis Rapid 0.0 See_Comment [Au tomated message] The (test code = Estimated syste m which generated % Lysis Rapid) this result t ransmitted reference range : <=7.5. The reference r christiano was not used to int erpret this result as normal/abnormal . [facility] HospitalUsvqqbeHZWSQGTEAU6006-98-69 06:27:00 Test Item Value Reference Range Interpretation Comments RBC Morph (test code = Normal (11/27/22 12:27 RBC Morph) AM) [place] [address]-02-27 06:27:00 Test Item Value Reference Range Interpretation Comments Plt Morph (test code = Normal (11/27/22 12:27 Plt Morph) AM) [place] [address]-02-27 06:27:00 Test Item Value Reference Range Interpretation Comments Basophils # (test code 0.1 See_Comment [Aut omated message] The = Basophils #) system which generated this result tra nsmitted reference range : <=0.2. The reference r christiano was not used to int erpret this result as normal/abnormal . [facility] CenterImdcwnoBLOURAARV1339-14-29 13:17:00 Test Item Value Reference Range Interpretation Comments Glucose Lvl (test code = Glucose Lvl) 65 70-99 [facility] CenterSpwyovzHDHKJNRYP6436-70-21 13:17:00 Test Item Value Reference Range Interpretation Comments BUN (test code = BUN) 39 7-22 [facility] CenterTjwqcmpFBDXQPYTW4258-94-33 13:17:00 Test Item Value Reference Range Interpretation Comments Creatinine Lvl (test code = Creatinine 2.03 0.50-1.40 Lvl) [facility] CenterCnacpedSDYFXBYEZ5667-63-76 13:17:00 Test Item Value Reference Range Interpretation Comments Sodium Lvl (test code = Sodium Lvl) 139 135-145 [facility] CenterZpbmenpRXVGPIJQD8103-50-14 13:17:00 Test Item Value Reference Range Interpretation Comments Potassium Lvl (test code = Potassium 4.7 3.5-5.1 Lvl) [facility] CenterIiipoazQVBCVJVZQ9116-06-71 13:17:00 Test Item Value Reference Range Interpretation Comments Chloride Lvl (test code = Chloride Lvl) 107 95-109 [facility] CenterMugqrmdTJEILRKHO2893-55-40 13:17:00 Test Item Value Reference Range Interpretation Comments CO2 (test code = CO2) 26 24-32 [facility] CenterYmbsuluNISRSTZVR6009-58-69 13:17:00 Test Item Value Reference Range Interpretation Comments Calcium Lvl (test code = Calcium Lvl) 8.1 8.5-10.5 [facility] CenterKqdikuiUVTTPJPNZ6137-78-67 13:17:00 Test Item Value Reference Range Interpretation Comments AGAP (test code = AGAP) 10.7 10.0-20.0 [facility] CenterOdvfamaWLOVJCJYV5843-26-08 13:17:00 Test Item Value Reference Range Interpretation Comments eGFR (test code = eGFR) 24 [facility] CenterRkchdkcMLEEHCBWL8402-08-36 13:17:00 Test Item Value Reference Range Interpretation Comments Ca Ion WB (test code = Ca Ion WB) 1.06 1.05-1.25 [place] 408583-02-22 13:17:00 Test Item Value Reference Range Interpretation Comments Ca Ion at pH 7.4 WB (test code = Ca Ion 1.03 1.05-1.25 at pH 7.4 WB) [facility] CenterJesfmgqCSKHORSZP4702-90-69 13:17:00 Test Item Value Reference Range Interpretation Comments Magnesium Lvl (test code = Magnesium 2.7 1.8-2.4 Lvl) [place] 408583-02-22 13:17:00 Test Item Value Reference Range Interpretation Comments Phosphorus (test code = Phosphorus) 3.9 2.5-4.5 [place] 744043-02-22 13:17:00 Test Item Value Reference Range Interpretation Comments Segs (test code = Segs) 54.4 45.0-75.0 [place] 744043-02-22 13:17:00 Test Item Value Reference Range Interpretation Comments Lymphocytes (test code = Lymphocytes) 29.3 20.0-40.0 [place] [address]-02-22 13:17:00 Test Item Value Reference Range Interpretation Comments Monocytes (test code = Monocytes) 10.5 2.0-12.0 [place] 744043-02-22 13:17:00 Test Item Value Reference Range Interpretation Comments Eosinophils (test code = 5.0 See_Comment [A utomated message] The Eosinophils) system which ge nerated this result tra nsmitted reference range : <=4.0. The reference r christiano was not used to int erpret this result as normal/abnormal . [place] 744043-02-22 13:17:00 Test Item Value Reference Range Interpretation Comments Basophils (test code = 0.8 See_Comment [Aut omated message] The Basophils) system which ge nerated this result tra nsmitted reference range : <=1.0. The reference r christiano was not used to int erpret this result as normal/abnormal . [facility]JcvhnvlRWLYQDKUZH8283-82-80 13:17:00 Test Item Value Reference Range Interpretation Comments Neutrophils # (test code = Neutrophils 4.1 1.5-8.1 #) [place] 744043-02-22 13:17:00 Test Item Value Reference Range Interpretation Comments Lymphocytes # (test code = Lymphocytes 2.2 1.0-5.5 #) [place] 744043-02-22 13:17:00 Test Item Value Reference Range Interpretation Comments Monocytes # (test code 0.8 See_Comment [Aut omated message] The = Monocytes #) system which generated this result tra nsmitted reference range : <=0.8. The reference r christiano was not used to int erpret this result as normal/abnormal . [facility] HospitalSbxxebjZTYKDSOYVK0112-85-53 13:17:00 Test Item Value Reference Range Interpretation Comments Eosinophils # (test code 0.4 See_Comment [A utomated message] The = Eosinophils #) system whic h generated this result tra nsmitted reference range : <=0.5. The reference r christiano was not used to int erpret this result as normal/abnormal . [facility] HospitalDxlaotlCTGXUINOOM9009-64-82 13:17:00 Test Item Value Reference Range Interpretation Comments Basophils # (test code 0.1 See_Comment [Aut omated message] The = Basophils #) system which generated this result tra nsmitted reference range : <=0.2. The reference r christiano was not used to int erpret this result as normal/abnormal . [facility] HospitalKhtbcwpWOSCIGHPAH3117-14-03 13:17:00 Test Item Value Reference Range Interpretation Comments WBC (test code = WBC) 7.5 3.7-10.4 [place] 744043-02-22 13:17:00 Test Item Value Reference Range Interpretation Comments RBC (test code = RBC) 3.30 4.20-5.40 [place] 744043-02-22 13:17:00 Test Item Value Reference Range Interpretation Comments Hgb (test code = Hgb) 9.9 12.0-16.0 [place] 744043-02-22 13:17:00 Test Item Value Reference Range Interpretation Comments Hct (test code = Hct) 30.3 36.0-48.0 [place] [address]-02-22 13:17:00 Test Item Value Reference Range Interpretation Comments MCV (test code = MCV) 91.8 80.0-98.0 [place] [address]-02-22 13:17:00 Test Item Value Reference Range Interpretation Comments MCH (test code = MCH) 30.0 pg 27.0-31.0 [place] 744043-02-22 13:17:00 Test Item Value Reference Range Interpretation Comments MCHC (test code = MCHC) 32.7 32.0-36.0 [place] [address]-02-22 13:17:00 Test Item Value Reference Range Interpretation Comments RDW (test code = RDW) 14.4 11.5-14.5 [place] 744043-02-22 13:17:00 Test Item Value Reference Range Interpretation Comments Platelet (test code = Platelet) 136 133-450 [place] 744043-02-22 13:17:00 Test Item Value Reference Range Interpretation Comments MPV (test code = MPV) 8.7 7.4-10.4 [place] 408583-02-22 13:17:00 Test Item Value Reference Range Interpretation Comments Glucose Lvl (test code = Glucose Lvl) 65 70-99 [place] 408583-02-22 13:17:00 Test Item Value Reference Range Interpretation Comments BUN (test code = BUN) 39 7-22 [place] 408583-02-22 13:17:00 Test Item Value Reference Range Interpretation Comments Creatinine Lvl (test code = Creatinine 2.03 0.50-1.40 Lvl) [facility] CenterUwwsnleQMQJMGXXM0937-27-19 13:17:00 Test Item Value Reference Range Interpretation Comments Sodium Lvl (test code = Sodium Lvl) 139 135-145 [place] 408583-02-22 13:17:00 Test Item Value Reference Range Interpretation Comments Potassium Lvl (test code = Potassium 4.7 3.5-5.1 Lvl) [facility] CenterUmgzfmpDWJTJBYXV0479-00-77 13:17:00 Test Item Value Reference Range Interpretation Comments Chloride Lvl (test code = Chloride Lvl) 107 95-109 [place] 408583-02-22 13:17:00 Test Item Value Reference Range Interpretation Comments CO2 (test code = CO2) 26 24-32 [place] 408583-02-22 13:17:00 Test Item Value Reference Range Interpretation Comments Calcium Lvl (test code = Calcium Lvl) 8.1 8.5-10.5 [place] 408583-02-22 13:17:00 Test Item Value Reference Range Interpretation Comments AGAP (test code = AGAP) 10.7 10.0-20.0 [place] 408583-02-22 13:17:00 Test Item Value Reference Range Interpretation Comments eGFR (test code = eGFR) 24 [facility] CenterNswkzjyGEEOOEQPS8730-74-71 13:17:00 Test Item Value Reference Range Interpretation Comments Ca Ion WB (test code = Ca Ion WB) 1.06 1.05-1.25 [facility] CenterAuftiwaAJAMXWMWU2158-18-62 13:17:00 Test Item Value Reference Range Interpretation Comments Ca Ion at pH 7.4 WB (test code = Ca Ion 1.03 1.05-1.25 at pH 7.4 WB) [facility] CenterHkyzqocOTQGPURRU6466-58-45 13:17:00 Test Item Value Reference Range Interpretation Comments Magnesium Lvl (test code = Magnesium 2.7 1.8-2.4 Lvl) [facility] CenterEuhtapjRTYUUIVCB7411-56-27 13:17:00 Test Item Value Reference Range Interpretation Comments Phosphorus (test code = Phosphorus) 3.9 2.5-4.5 [facility] HospitalLvqujxjUCJXYZSCUY7613-92-57 13:17:00 Test Item Value Reference Range Interpretation Comments Segs (test code = Segs) 54.4 45.0-75.0 [place] 744043-02-22 13:17:00 Test Item Value Reference Range Interpretation Comments Lymphocytes (test code = Lymphocytes) 29.3 20.0-40.0 [facility] HospitalEdmrrzxMAJQVIAWKH5452-85-78 13:17:00 Test Item Value Reference Range Interpretation Comments Monocytes (test code = Monocytes) 10.5 2.0-12.0 [facility] HospitalWidvplbOSFRXRCZJZ3465-11-39 13:17:00 Test Item Value Reference Range Interpretation Comments Eosinophils (test code = 5.0 See_Comment [A utomated message] The Eosinophils) system which ge nerated this result tra nsmitted reference range : <=4.0. The reference r christiano was not used to int erpret this result as normal/abnormal . [facility] HospitalYhmxbscIPUJRBBMSJ5353-16-95 13:17:00 Test Item Value Reference Range Interpretation Comments Basophils (test code = 0.8 See_Comment [Aut omated message] The Basophils) system which ge nerated this result tra nsmitted reference range : <=1.0. The reference r christiano was not used to int erpret this result as normal/abnormal . [facility] HospitalIilxzomITHOETLQBC5778-35-25 13:17:00 Test Item Value Reference Range Interpretation Comments Neutrophils # (test code = Neutrophils 4.1 1.5-8.1 #) [place] 744043-02-22 13:17:00 Test Item Value Reference Range Interpretation Comments Lymphocytes # (test code = Lymphocytes 2.2 1.0-5.5 #) [place] [address]-02-22 13:17:00 Test Item Value Reference Range Interpretation Comments Monocytes # (test code 0.8 See_Comment [Aut omated message] The = Monocytes #) system which generated this result tra nsmitted reference range : <=0.8. The reference r christiano was not used to int erpret this result as normal/abnormal . [place] 744043-02-22 13:17:00 Test Item Value Reference Range Interpretation Comments Eosinophils # (test code 0.4 See_Comment [A utomated message] The = Eosinophils #) system whic h generated this result tra nsmitted reference range : <=0.5. The reference r christiano was not used to int erpret this result as normal/abnormal . [place] 744043-02-22 13:17:00 Test Item Value Reference Range Interpretation Comments Basophils # (test code 0.1 See_Comment [Aut omated message] The = Basophils #) system which generated this result tra nsmitted reference range : <=0.2. The reference r christiano was not used to int erpret this result as normal/abnormal . [place] 744043-02-22 13:17:00 Test Item Value Reference Range Interpretation Comments WBC (test code = WBC) 7.5 3.7-10.4 [place] [address]-02-22 13:17:00 Test Item Value Reference Range Interpretation Comments RBC (test code = RBC) 3.30 4.20-5.40 [place] [address]-02-22 13:17:00 Test Item Value Reference Range Interpretation Comments Hgb (test code = Hgb) 9.9 12.0-16.0 [place] [address]-02-22 13:17:00 Test Item Value Reference Range Interpretation Comments Hct (test code = Hct) 30.3 36.0-48.0 [place] [address]-02-22 13:17:00 Test Item Value Reference Range Interpretation Comments MCV (test code = MCV) 91.8 80.0-98.0 [place] [address]-02-22 13:17:00 Test Item Value Reference Range Interpretation Comments MCH (test code = MCH) 30.0 pg 27.0-31.0 [place] 744043-02-22 13:17:00 Test Item Value Reference Range Interpretation Comments MCHC (test code = MCHC) 32.7 32.0-36.0 [place] [address]-02-22 13:17:00 Test Item Value Reference Range Interpretation Comments RDW (test code = RDW) 14.4 11.5-14.5 [place] [address]-02-22 13:17:00 Test Item Value Reference Range Interpretation Comments Platelet (test code = Platelet) 136 133-450 [place] 744043-02-22 13:17:00 Test Item Value Reference Range Interpretation Comments MPV (test code = MPV) 8.7 7.4-10.4 [place] 570323-02-22 13:17:00 Test Item Value Reference Range Interpretation Comments Glucose Lvl (test code = Glucose Lvl) 65 70-99 [place] 570323-02-22 13:17:00 Test Item Value Reference Range Interpretation Comments BUN (test code = BUN) 39 7-22 [place] 570323-02-22 13:17:00 Test Item Value Reference Range Interpretation Comments Creatinine Lvl (test code = Creatinine 2.03 0.50-1.40 Lvl) [place] 570323-02-22 13:17:00 Test Item Value Reference Range Interpretation Comments Sodium Lvl (test code = Sodium Lvl) 139 135-145 [place] 570323-02-22 13:17:00 Test Item Value Reference Range Interpretation Comments Potassium Lvl (test code = Potassium 4.7 3.5-5.1 Lvl) [place] 570323-02-22 13:17:00 Test Item Value Reference Range Interpretation Comments Chloride Lvl (test code = Chloride Lvl) 107 95-109 [place] 570323-02-22 13:17:00 Test Item Value Reference Range Interpretation Comments CO2 (test code = CO2) 26 24-32 [place] 570323-02-22 13:17:00 Test Item Value Reference Range Interpretation Comments Calcium Lvl (test code = Calcium Lvl) 8.1 8.5-10.5 [place] 570323-02-22 13:17:00 Test Item Value Reference Range Interpretation Comments AGAP (test code = AGAP) 10.7 10.0-20.0 [place] 570323-02-22 13:17:00 Test Item Value Reference Range Interpretation Comments eGFR (test code = eGFR) 24 [place] 570323-02-22 13:17:00 Test Item Value Reference Range Interpretation Comments Magnesium Lvl (test code = Magnesium 2.7 1.8-2.4 Lvl) [place] 570323-02-22 13:17:00 Test Item Value Reference Range Interpretation Comments Phosphorus (test code = Phosphorus) 3.9 2.5-4.5 [place] 408583-02-22 13:17:00 Test Item Value Reference Range Interpretation Comments Glucose Lvl (test code = Glucose Lvl) 65 70-99 [place] 408583-02-22 13:17:00 Test Item Value Reference Range Interpretation Comments BUN (test code = BUN) 39 7-22 [place] 408583-02-22 13:17:00 Test Item Value Reference Range Interpretation Comments Creatinine Lvl (test code = Creatinine 2.03 0.50-1.40 Lvl) [facility] CenterIoyybqvHEQQNYMQW5495-76-19 13:17:00 Test Item Value Reference Range Interpretation Comments Sodium Lvl (test code = Sodium Lvl) 139 135-145 [place] 408583-02-22 13:17:00 Test Item Value Reference Range Interpretation Comments Potassium Lvl (test code = Potassium 4.7 3.5-5.1 Lvl) [place] 408583-02-22 13:17:00 Test Item Value Reference Range Interpretation Comments Chloride Lvl (test code = Chloride Lvl) 107 95-109 [place] 408583-02-22 13:17:00 Test Item Value Reference Range Interpretation Comments CO2 (test code = CO2) 26 24-32 [place] 408583-02-22 13:17:00 Test Item Value Reference Range Interpretation Comments Calcium Lvl (test code = Calcium Lvl) 8.1 8.5-10.5 [place] 408583-02-22 13:17:00 Test Item Value Reference Range Interpretation Comments AGAP (test code = AGAP) 10.7 10.0-20.0 [place] 408583-02-22 13:17:00 Test Item Value Reference Range Interpretation Comments eGFR (test code = eGFR) 24 [facility] CenterMuukukwQOJXCJSVP7405-23-11 13:17:00 Test Item Value Reference Range Interpretation Comments Ca Ion WB (test code = Ca Ion WB) 1.06 1.05-1.25 [place] 408583-02-22 13:17:00 Test Item Value Reference Range Interpretation Comments Ca Ion at pH 7.4 WB (test code = Ca Ion 1.03 1.05-1.25 at pH 7.4 WB) [facility] CenterAksjdirCUXDIYHAW8621-97-45 13:17:00 Test Item Value Reference Range Interpretation Comments Magnesium Lvl (test code = Magnesium 2.7 1.8-2.4 Lvl) [facility] CenterYgcpudaZPEWMACZL3984-58-98 13:17:00 Test Item Value Reference Range Interpretation Comments Phosphorus (test code = Phosphorus) 3.9 2.5-4.5 [place] 744043-02-22 13:17:00 Test Item Value Reference Range Interpretation Comments Segs (test code = Segs) 54.4 45.0-75.0 [place] 744043-02-22 13:17:00 Test Item Value Reference Range Interpretation Comments Lymphocytes (test code = Lymphocytes) 29.3 20.0-40.0 [place] 744043-02-22 13:17:00 Test Item Value Reference Range Interpretation Comments Monocytes (test code = Monocytes) 10.5 2.0-12.0 [place] [address]-02-22 13:17:00 Test Item Value Reference Range Interpretation Comments Eosinophils (test code = 5.0 See_Comment [A utomated message] The Eosinophils) system which ge nerated this result tra nsmitted reference range : <=4.0. The reference r christiano was not used to int erpret this result as normal/abnormal . [place] 744043-02-22 13:17:00 Test Item Value Reference Range Interpretation Comments Basophils (test code = 0.8 See_Comment [Aut omated message] The Basophils) system which ge nerated this result tra nsmitted reference range : <=1.0. The reference r christiano was not used to int erpret this result as normal/abnormal . [facility] HospitalVcshkacIGZBBCIYPS8331-09-20 13:17:00 Test Item Value Reference Range Interpretation Comments Neutrophils # (test code = Neutrophils 4.1 1.5-8.1 #) [facility] HospitalGkdsqpzCXBMRHGZDW7369-95-17 13:17:00 Test Item Value Reference Range Interpretation Comments Lymphocytes # (test code = Lymphocytes 2.2 1.0-5.5 #) [place] 744043-02-22 13:17:00 Test Item Value Reference Range Interpretation Comments Monocytes # (test code 0.8 See_Comment [Aut omated message] The = Monocytes #) system which generated this result tra nsmitted reference range : <=0.8. The reference r christiano was not used to int erpret this result as normal/abnormal . [place] 744043-02-22 13:17:00 Test Item Value Reference Range Interpretation Comments Eosinophils # (test code 0.4 See_Comment [A utomated message] The = Eosinophils #) system whic h generated this result tra nsmitted reference range : <=0.5. The reference r christiano was not used to int erpret this result as normal/abnormal . [facility] HospitalAyvapgyZSGWUGGCUR4494-49-14 13:17:00 Test Item Value Reference Range Interpretation Comments Basophils # (test code 0.1 See_Comment [Aut omated message] The = Basophils #) system which generated this result tra nsmitted reference range : <=0.2. The reference r christiano was not used to int erpret this result as normal/abnormal . [facility] HospitalCarstxrUYJWMULCNM0979-33-61 13:17:00 Test Item Value Reference Range Interpretation Comments WBC (test code = WBC) 7.5 3.7-10.4 [place] 744043-02-22 13:17:00 Test Item Value Reference Range Interpretation Comments RBC (test code = RBC) 3.30 4.20-5.40 [place] [address]-02-22 13:17:00 Test Item Value Reference Range Interpretation Comments Hgb (test code = Hgb) 9.9 12.0-16.0 [place] 744043-02-22 13:17:00 Test Item Value Reference Range Interpretation Comments Hct (test code = Hct) 30.3 36.0-48.0 [place] 744043-02-22 13:17:00 Test Item Value Reference Range Interpretation Comments MCV (test code = MCV) 91.8 80.0-98.0 [place] [address]-02-22 13:17:00 Test Item Value Reference Range Interpretation Comments MCH (test code = MCH) 30.0 pg 27.0-31.0 [place] 744043-02-22 13:17:00 Test Item Value Reference Range Interpretation Comments MCHC (test code = MCHC) 32.7 32.0-36.0 [place] 744043-02-22 13:17:00 Test Item Value Reference Range Interpretation Comments RDW (test code = RDW) 14.4 11.5-14.5 [place] 744043-02-22 13:17:00 Test Item Value Reference Range Interpretation Comments Platelet (test code = Platelet) 136 133-450 [place] 744043-02-22 13:17:00 Test Item Value Reference Range Interpretation Comments MPV (test code = MPV) 8.7 7.4-10.4 [place] 744043-02-22 13:17:00 Test Item Value Reference Range Interpretation Comments Segs (test code = Segs) 54.4 45.0-75.0 [place] 744043-02-22 13:17:00 Test Item Value Reference Range Interpretation Comments Lymphocytes (test code = Lymphocytes) 29.3 20.0-40.0 [place] 744043-02-22 13:17:00 Test Item Value Reference Range Interpretation Comments Monocytes (test code = Monocytes) 10.5 2.0-12.0 [place] [address]-02-22 13:17:00 Test Item Value Reference Range Interpretation Comments Eosinophils (test code = 5.0 See_Comment [A utomated message] The Eosinophils) system which ge nerated this result tra nsmitted reference range : <=4.0. The reference r christiano was not used to int erpret this result as normal/abnormal . [place] 744043-02-22 13:17:00 Test Item Value Reference Range Interpretation Comments Basophils (test code = 0.8 See_Comment [Aut omated message] The Basophils) system which ge nerated this result tra nsmitted reference range : <=1.0. The reference r christiano was not used to int erpret this result as normal/abnormal . [place] 744043-02-22 13:17:00 Test Item Value Reference Range Interpretation Comments Neutrophils # (test code = Neutrophils 4.1 1.5-8.1 #) [place] 744043-02-22 13:17:00 Test Item Value Reference Range Interpretation Comments Lymphocytes # (test code = Lymphocytes 2.2 1.0-5.5 #) [place] 744043-02-22 13:17:00 Test Item Value Reference Range Interpretation Comments Monocytes # (test code 0.8 See_Comment [Aut omated message] The = Monocytes #) system which generated this result tra nsmitted reference range : <=0.8. The reference r christiano was not used to int erpret this result as normal/abnormal . [place] 744043-02-22 13:17:00 Test Item Value Reference Range Interpretation Comments Eosinophils # (test code 0.4 See_Comment [A utomated message] The = Eosinophils #) system whic h generated this result tra nsmitted reference range : <=0.5. The reference r christiano was not used to int erpret this result as normal/abnormal . [facility] HospitalJqjqvdmEPCXDXXITZ9969-08-63 13:17:00 Test Item Value Reference Range Interpretation Comments Basophils # (test code 0.1 See_Comment [Aut omated message] The = Basophils #) system which generated this result tra nsmitted reference range : <=0.2. The reference r christiano was not used to int erpret this result as normal/abnormal . [facility] HospitalPghgrzjWCPZBUHEGX4502-28-41 13:17:00 Test Item Value Reference Range Interpretation Comments WBC (test code = WBC) 7.5 3.7-10.4 [place] 744043-02-22 13:17:00 Test Item Value Reference Range Interpretation Comments RBC (test code = RBC) 3.30 4.20-5.40 [place] [address]-02-22 13:17:00 Test Item Value Reference Range Interpretation Comments Hgb (test code = Hgb) 9.9 12.0-16.0 [place] [address]-02-22 13:17:00 Test Item Value Reference Range Interpretation Comments Hct (test code = Hct) 30.3 36.0-48.0 [place] 744043-02-22 13:17:00 Test Item Value Reference Range Interpretation Comments MCV (test code = MCV) 91.8 80.0-98.0 [place] 744043-02-22 13:17:00 Test Item Value Reference Range Interpretation Comments MCH (test code = MCH) 30.0 pg 27.0-31.0 [place] 744043-02-22 13:17:00 Test Item Value Reference Range Interpretation Comments MCHC (test code = MCHC) 32.7 32.0-36.0 [facility] HospitalTavswflCPJCOAMQIG3879-54-78 13:17:00 Test Item Value Reference Range Interpretation Comments RDW (test code = RDW) 14.4 11.5-14.5 [place] 744043-02-22 13:17:00 Test Item Value Reference Range Interpretation Comments Platelet (test code = Platelet) 136 133-450 [facility] HospitalXoldbhxHNZGCWXYEH2734-94-70 13:17:00 Test Item Value Reference Range Interpretation Comments MPV (test code = MPV) 8.7 7.4-10.4 [facility] BSIALLW6633-58-00 13:17:00 Test Item Value Reference Range Interpretation Comments Ca Ion WB (test code = Ca Ion WB) 1.06 1.05-1.25 [facility]2023-02-22 13:17:00 Test Item Value Reference Range Interpretation Comments Ca Ion at pH 7.4 WB (test code = Ca Ion 1.03 1.05-1.25 at pH 7.4 WB) [facility]2023-02-22 13:17:00 Test Item Value Reference Range Interpretation Comments Glucose Lvl (test code = Glucose Lvl) 65 70-99 [facility]2023-02-22 13:17:00 Test Item Value Reference Range Interpretation Comments BUN (test code = BUN) 39 7-22 [facility]2023-02-22 13:17:00 Test Item Value Reference Range Interpretation Comments Creatinine Lvl (test code = Creatinine 2.03 0.50-1.40 Lvl) [place] 570323-02-22 13:17:00 Test Item Value Reference Range Interpretation Comments Sodium Lvl (test code = Sodium Lvl) 139 135-145 [place] 570323-02-22 13:17:00 Test Item Value Reference Range Interpretation Comments Potassium Lvl (test code = Potassium 4.7 3.5-5.1 Lvl) [place] 570323-02-22 13:17:00 Test Item Value Reference Range Interpretation Comments Chloride Lvl (test code = Chloride Lvl) 107 95-109 [place] 570323-02-22 13:17:00 Test Item Value Reference Range Interpretation Comments CO2 (test code = CO2) 26 24-32 [place] 570323-02-22 13:17:00 Test Item Value Reference Range Interpretation Comments Calcium Lvl (test code = Calcium Lvl) 8.1 8.5-10.5 [place] 570323-02-22 13:17:00 Test Item Value Reference Range Interpretation Comments AGAP (test code = AGAP) 10.7 10.0-20.0 [place] 570323-02-22 13:17:00 Test Item Value Reference Range Interpretation Comments eGFR (test code = eGFR) 24 [place] 570323-02-22 13:17:00 Test Item Value Reference Range Interpretation Comments Magnesium Lvl (test code = Magnesium 2.7 1.8-2.4 Lvl) [place] 570323-02-22 13:17:00 Test Item Value Reference Range Interpretation Comments Phosphorus (test code = Phosphorus) 3.9 2.5-4.5 [place] [address]-02-22 13:17:00 Test Item Value Reference Range Interpretation Comments Glucose Lvl (test code = Glucose Lvl) 65 70-99 [place] [address]-02-22 13:17:00 Test Item Value Reference Range Interpretation Comments BUN (test code = BUN) 39 7-22 [place] [address]-02-22 13:17:00 Test Item Value Reference Range Interpretation Comments Creatinine Lvl (test code = Creatinine 2.03 0.50-1.40 Lvl) [place] 408583-02-22 13:17:00 Test Item Value Reference Range Interpretation Comments Sodium Lvl (test code = Sodium Lvl) 139 135-145 [facility] CenterUmbxkyxLGTSYJUSE7044-06-84 13:17:00 Test Item Value Reference Range Interpretation Comments Potassium Lvl (test code = Potassium 4.7 3.5-5.1 Lvl) [facility] CenterEbfcrqhBUMXCMDXP4250-48-19 13:17:00 Test Item Value Reference Range Interpretation Comments Chloride Lvl (test code = Chloride Lvl) 107 95-109 [facility] CenterIntpyqhYFGPYYNGZ1924-24-05 13:17:00 Test Item Value Reference Range Interpretation Comments CO2 (test code = CO2) 26 24-32 [facility] CenterKpnfddaAFEIEQFJW4163-58-93 13:17:00 Test Item Value Reference Range Interpretation Comments Calcium Lvl (test code = Calcium Lvl) 8.1 8.5-10.5 [facility] CenterWyzibohNGUTMKFPU1446-56-85 13:17:00 Test Item Value Reference Range Interpretation Comments AGAP (test code = AGAP) 10.7 10.0-20.0 [facility] CenterBqydubcEZUNRPFRE9147-09-47 13:17:00 Test Item Value Reference Range Interpretation Comments eGFR (test code = eGFR) 24 [facility] CenterXepaygaKUCIKPQZO6041-02-89 13:17:00 Test Item Value Reference Range Interpretation Comments Ca Ion WB (test code = Ca Ion WB) 1.06 1.05-1.25 [facility] CenterLhzhclwXJHSPOJSN9881-01-79 13:17:00 Test Item Value Reference Range Interpretation Comments Ca Ion at pH 7.4 WB (test code = Ca Ion 1.03 1.05-1.25 at pH 7.4 WB) [facility] CenterTnvyxprUGSIXXQGF9942-76-01 13:17:00 Test Item Value Reference Range Interpretation Comments Magnesium Lvl (test code = Magnesium 2.7 1.8-2.4 Lvl) [facility] CenterWxfdnmyLRWLPMUIC1085-56-63 13:17:00 Test Item Value Reference Range Interpretation Comments Phosphorus (test code = Phosphorus) 3.9 2.5-4.5 [place] 744043-02-22 13:17:00 Test Item Value Reference Range Interpretation Comments Segs (test code = Segs) 54.4 45.0-75.0 [place] 744043-02-22 13:17:00 Test Item Value Reference Range Interpretation Comments Lymphocytes (test code = Lymphocytes) 29.3 20.0-40.0 [place] 744043-02-22 13:17:00 Test Item Value Reference Range Interpretation Comments Monocytes (test code = Monocytes) 10.5 2.0-12.0 [place] 744043-02-22 13:17:00 Test Item Value Reference Range Interpretation Comments Eosinophils (test code = 5.0 See_Comment [A utomated message] The Eosinophils) system which ge nerated this result tra nsmitted reference range : <=4.0. The reference r christiano was not used to int erpret this result as normal/abnormal . [place] [address]-02-22 13:17:00 Test Item Value Reference Range Interpretation Comments Basophils (test code = 0.8 See_Comment [Aut omated message] The Basophils) system which ge nerated this result tra nsmitted reference range : <=1.0. The reference r christiano was not used to int erpret this result as normal/abnormal . [place] 744043-02-22 13:17:00 Test Item Value Reference Range Interpretation Comments Neutrophils # (test code = Neutrophils 4.1 1.5-8.1 #) [place] 744043-02-22 13:17:00 Test Item Value Reference Range Interpretation Comments Lymphocytes # (test code = Lymphocytes 2.2 1.0-5.5 #) [place] [address]-02-22 13:17:00 Test Item Value Reference Range Interpretation Comments Monocytes # (test code 0.8 See_Comment [Aut omated message] The = Monocytes #) system which generated this result tra nsmitted reference range : <=0.8. The reference r christiano was not used to int erpret this result as normal/abnormal . [place] 744043-02-22 13:17:00 Test Item Value Reference Range Interpretation Comments Eosinophils # (test code 0.4 See_Comment [A utomated message] The = Eosinophils #) system whic h generated this result tra nsmitted reference range : <=0.5. The reference r christiano was not used to int erpret this result as normal/abnormal . [place] 744043-02-22 13:17:00 Test Item Value Reference Range Interpretation Comments Basophils # (test code 0.1 See_Comment [Aut omated message] The = Basophils #) system which generated this result tra nsmitted reference range : <=0.2. The reference r christiano was not used to int erpret this result as normal/abnormal . [facility]YmivzpgTKUEDSBONZ7556-55-96 13:17:00 Test Item Value Reference Range Interpretation Comments WBC (test code = WBC) 7.5 3.7-10.4 [place] 744043-02-22 13:17:00 Test Item Value Reference Range Interpretation Comments RBC (test code = RBC) 3.30 4.20-5.40 [place] 744043-02-22 13:17:00 Test Item Value Reference Range Interpretation Comments Hgb (test code = Hgb) 9.9 12.0-16.0 [place] 744043-02-22 13:17:00 Test Item Value Reference Range Interpretation Comments Hct (test code = Hct) 30.3 36.0-48.0 [place] 744043-02-22 13:17:00 Test Item Value Reference Range Interpretation Comments MCV (test code = MCV) 91.8 80.0-98.0 [place] 744043-02-22 13:17:00 Test Item Value Reference Range Interpretation Comments MCH (test code = MCH) 30.0 pg 27.0-31.0 [place] 744043-02-22 13:17:00 Test Item Value Reference Range Interpretation Comments MCHC (test code = MCHC) 32.7 32.0-36.0 [place] 744043-02-22 13:17:00 Test Item Value Reference Range Interpretation Comments RDW (test code = RDW) 14.4 11.5-14.5 [place] 744043-02-22 13:17:00 Test Item Value Reference Range Interpretation Comments Platelet (test code = Platelet) 136 133-450 [place] 744043-02-22 13:17:00 Test Item Value Reference Range Interpretation Comments MPV (test code = MPV) 8.7 7.4-10.4 [place] 744043-02-22 13:17:00 Test Item Value Reference Range Interpretation Comments Segs (test code = Segs) 54.4 45.0-75.0 [place] 744043-02-22 13:17:00 Test Item Value Reference Range Interpretation Comments Lymphocytes (test code = Lymphocytes) 29.3 20.0-40.0 [facility] HospitalRhxnwvaFLQJQJXPTH1124-87-40 13:17:00 Test Item Value Reference Range Interpretation Comments Monocytes (test code = Monocytes) 10.5 2.0-12.0 [facility] HospitalXchltrzNGPZKQGDME2930-65-86 13:17:00 Test Item Value Reference Range Interpretation Comments Eosinophils (test code = 5.0 See_Comment [A utomated message] The Eosinophils) system which ge nerated this result tra nsmitted reference range : <=4.0. The reference r christiano was not used to int erpret this result as normal/abnormal . [facility] HospitalYrmfwahXEXAPZNLUN8999-38-81 13:17:00 Test Item Value Reference Range Interpretation Comments Basophils (test code = 0.8 See_Comment [Aut omated message] The Basophils) system which ge nerated this result tra nsmitted reference range : <=1.0. The reference r christiano was not used to int erpret this result as normal/abnormal . [facility] HospitalDikjkgpJJCVPKUKVY6776-33-52 13:17:00 Test Item Value Reference Range Interpretation Comments Neutrophils # (test code = Neutrophils 4.1 1.5-8.1 #) [facility] HospitalTxvehcbFROISHYEGF7309-90-78 13:17:00 Test Item Value Reference Range Interpretation Comments Lymphocytes # (test code = Lymphocytes 2.2 1.0-5.5 #) [facility] HospitalFrhkuldFOWOWCDEII3350-15-77 13:17:00 Test Item Value Reference Range Interpretation Comments Monocytes # (test code 0.8 See_Comment [Aut omated message] The = Monocytes #) system which generated this result tra nsmitted reference range : <=0.8. The reference r christiano was not used to int erpret this result as normal/abnormal . [facility] HospitalZlylookUDCCAYEMNR3524-57-11 13:17:00 Test Item Value Reference Range Interpretation Comments Eosinophils # (test code 0.4 See_Comment [A utomated message] The = Eosinophils #) system whic h generated this result tra nsmitted reference range : <=0.5. The reference r christiano was not used to int erpret this result as normal/abnormal . [facility] HospitalGhevsmeSJSGCYWXQO9942-49-35 13:17:00 Test Item Value Reference Range Interpretation Comments Basophils # (test code 0.1 See_Comment [Aut omated message] The = Basophils #) system which generated this result tra nsmitted reference range : <=0.2. The reference r christiano was not used to int erpret this result as normal/abnormal . [facility] HospitalSrtmzlsZTMHXMLBNO6153-00-73 13:17:00 Test Item Value Reference Range Interpretation Comments WBC (test code = WBC) 7.5 3.7-10.4 [facility] HospitalTzjkfvbNUAPIPVQRN3975-77-91 13:17:00 Test Item Value Reference Range Interpretation Comments RBC (test code = RBC) 3.30 4.20-5.40 [facility] HospitalOjjtmupPQNUKWXRLH1552-56-77 13:17:00 Test Item Value Reference Range Interpretation Comments Hgb (test code = Hgb) 9.9 12.0-16.0 [facility] HospitalRbpclcfFDBBPNXMKC0537-72-23 13:17:00 Test Item Value Reference Range Interpretation Comments Hct (test code = Hct) 30.3 36.0-48.0 [facility] HospitalDmqraajSDEMVLSALM8130-11-12 13:17:00 Test Item Value Reference Range Interpretation Comments MCV (test code = MCV) 91.8 80.0-98.0 [facility] HospitalBctowgvSWJLTNRROK1579-16-57 13:17:00 Test Item Value Reference Range Interpretation Comments MCH (test code = MCH) 30.0 pg 27.0-31.0 [facility] HospitalRiuupzcFCSVYTSNFS4582-54-04 13:17:00 Test Item Value Reference Range Interpretation Comments MCHC (test code = MCHC) 32.7 32.0-36.0 [facility] HospitalKzakjdxCAGBXJPLDD3588-15-04 13:17:00 Test Item Value Reference Range Interpretation Comments RDW (test code = RDW) 14.4 11.5-14.5 [facility] HospitalXdesyvoJEBWXBNJPM0084-97-01 13:17:00 Test Item Value Reference Range Interpretation Comments Platelet (test code = Platelet) 136 133-450 [facility] HospitalWgpqkftVPOCJSWZSG2183-28-41 13:17:00 Test Item Value Reference Range Interpretation Comments MPV (test code = MPV) 8.7 7.4-10.4 [facility] KUGDHKJ6014-79-11 13:17:00 Test Item Value Reference Range Interpretation Comments Ca Ion WB (test code = Ca Ion WB) 1.06 1.05-1.25 [facility]udaPARATHYROID GGFFITG5489-72-91 13:17:00 Test Item Value Reference Range Interpretation Comments Ca Ion at pH 7.4 WB (test code = Ca Ion 1.03 1.05-1.25 at pH 7.4 WB) [place] 570323-02-22 13:17:00 Test Item Value Reference Range Interpretation Comments Glucose Lvl (test code = Glucose Lvl) 65 70-99 [facility]2023-02-22 13:17:00 Test Item Value Reference Range Interpretation Comments BUN (test code = BUN) 39 7-22 [facility]2023-02-22 13:17:00 Test Item Value Reference Range Interpretation Comments Creatinine Lvl (test code = Creatinine 2.03 0.50-1.40 Lvl) [facility]2023-02-22 13:17:00 Test Item Value Reference Range Interpretation Comments Sodium Lvl (test code = Sodium Lvl) 139 135-145 [facility]2023-02-22 13:17:00 Test Item Value Reference Range Interpretation Comments Potassium Lvl (test code = Potassium 4.7 3.5-5.1 Lvl) [facility]2023-02-22 13:17:00 Test Item Value Reference Range Interpretation Comments Chloride Lvl (test code = Chloride Lvl) 107 95-109 [facility]2023-02-22 13:17:00 Test Item Value Reference Range Interpretation Comments CO2 (test code = CO2) 26 24-32 [place] 570323-02-22 13:17:00 Test Item Value Reference Range Interpretation Comments Calcium Lvl (test code = Calcium Lvl) 8.1 8.5-10.5 [place] 570323-02-22 13:17:00 Test Item Value Reference Range Interpretation Comments AGAP (test code = AGAP) 10.7 10.0-20.0 [place] 570323-02-22 13:17:00 Test Item Value Reference Range Interpretation Comments eGFR (test code = eGFR) 24 [place] 570323-02-22 13:17:00 Test Item Value Reference Range Interpretation Comments Magnesium Lvl (test code = Magnesium 2.7 1.8-2.4 Lvl) [address]02-22 13:17:00 Test Item Value Reference Range Interpretation Comments Phosphorus (test code = Phosphorus) 3.9 2.5-4.5 [place] 408583-02-22 13:17:00 Test Item Value Reference Range Interpretation Comments Glucose Lvl (test code = Glucose Lvl) 65 70-99 [place] 408583-02-22 13:17:00 Test Item Value Reference Range Interpretation Comments BUN (test code = BUN) 39 7-22 [place] 408583-02-22 13:17:00 Test Item Value Reference Range Interpretation Comments Creatinine Lvl (test code = Creatinine 2.03 0.50-1.40 Lvl) [facility] CenterHreoyhvCHQUQXCKM3924-44-45 13:17:00 Test Item Value Reference Range Interpretation Comments Sodium Lvl (test code = Sodium Lvl) 139 135-145 [place] 408583-02-22 13:17:00 Test Item Value Reference Range Interpretation Comments Potassium Lvl (test code = Potassium 4.7 3.5-5.1 Lvl) [facility] CenterAyjvinkUHPULDIBS7239-36-48 13:17:00 Test Item Value Reference Range Interpretation Comments Chloride Lvl (test code = Chloride Lvl) 107 95-109 [facility] CenterAvwrmctGJPBTEZZF7292-30-01 13:17:00 Test Item Value Reference Range Interpretation Comments CO2 (test code = CO2) 26 24-32 [facility] CenterSyqycqjUHOFTWAPI7516-73-26 13:17:00 Test Item Value Reference Range Interpretation Comments Calcium Lvl (test code = Calcium Lvl) 8.1 8.5-10.5 [place] 408583-02-22 13:17:00 Test Item Value Reference Range Interpretation Comments AGAP (test code = AGAP) 10.7 10.0-20.0 [place] 408583-02-22 13:17:00 Test Item Value Reference Range Interpretation Comments eGFR (test code = eGFR) 24 [facility] CenterLmahkmhSXWNJSVXR6970-37-41 13:17:00 Test Item Value Reference Range Interpretation Comments Ca Ion WB (test code = Ca Ion WB) 1.06 1.05-1.25 [place] 408583-02-22 13:17:00 Test Item Value Reference Range Interpretation Comments Ca Ion at pH 7.4 WB (test code = Ca Ion 1.03 1.05-1.25 at pH 7.4 WB) [facility] CenterSlslhppWCBRAISYU1880-76-26 13:17:00 Test Item Value Reference Range Interpretation Comments Magnesium Lvl (test code = Magnesium 2.7 1.8-2.4 Lvl) [place] 408583-02-22 13:17:00 Test Item Value Reference Range Interpretation Comments Phosphorus (test code = Phosphorus) 3.9 2.5-4.5 [place] 744043-02-22 13:17:00 Test Item Value Reference Range Interpretation Comments Segs (test code = Segs) 54.4 45.0-75.0 [place] 744043-02-22 13:17:00 Test Item Value Reference Range Interpretation Comments Lymphocytes (test code = Lymphocytes) 29.3 20.0-40.0 [place] [address]-02-22 13:17:00 Test Item Value Reference Range Interpretation Comments Monocytes (test code = Monocytes) 10.5 2.0-12.0 [place] 744043-02-22 13:17:00 Test Item Value Reference Range Interpretation Comments Eosinophils (test code = 5.0 See_Comment [A utomated message] The Eosinophils) system which ge nerated this result tra nsmitted reference range : <=4.0. The reference r christiano was not used to int erpret this result as normal/abnormal . [place] 744043-02-22 13:17:00 Test Item Value Reference Range Interpretation Comments Basophils (test code = 0.8 See_Comment [Aut omated message] The Basophils) system which ge nerated this result tra nsmitted reference range : <=1.0. The reference r christiano was not used to int erpret this result as normal/abnormal . [place] 744043-02-22 13:17:00 Test Item Value Reference Range Interpretation Comments Neutrophils # (test code = Neutrophils 4.1 1.5-8.1 #) [place] 744043-02-22 13:17:00 Test Item Value Reference Range Interpretation Comments Lymphocytes # (test code = Lymphocytes 2.2 1.0-5.5 #) [place] 744043-02-22 13:17:00 Test Item Value Reference Range Interpretation Comments Monocytes # (test code 0.8 See_Comment [Aut omated message] The = Monocytes #) system which generated this result tra nsmitted reference range : <=0.8. The reference r christiano was not used to int erpret this result as normal/abnormal . [facility] HospitalTywyrzoNECNSUOTOG7107-14-91 13:17:00 Test Item Value Reference Range Interpretation Comments Eosinophils # (test code 0.4 See_Comment [A utomated message] The = Eosinophils #) system whic h generated this result tra nsmitted reference range : <=0.5. The reference r christiano was not used to int erpret this result as normal/abnormal . [facility] HospitalEyxnyzhQPYCWFMLMC3633-80-01 13:17:00 Test Item Value Reference Range Interpretation Comments Basophils # (test code 0.1 See_Comment [Aut omated message] The = Basophils #) system which generated this result tra nsmitted reference range : <=0.2. The reference r christiano was not used to int erpret this result as normal/abnormal . [facility] HospitalPcpnwtqQRJKARUMRM8534-92-95 13:17:00 Test Item Value Reference Range Interpretation Comments WBC (test code = WBC) 7.5 3.7-10.4 [place] 744043-02-22 13:17:00 Test Item Value Reference Range Interpretation Comments RBC (test code = RBC) 3.30 4.20-5.40 [place] 744043-02-22 13:17:00 Test Item Value Reference Range Interpretation Comments Hgb (test code = Hgb) 9.9 12.0-16.0 [place] 744043-02-22 13:17:00 Test Item Value Reference Range Interpretation Comments Hct (test code = Hct) 30.3 36.0-48.0 [place] [address]-02-22 13:17:00 Test Item Value Reference Range Interpretation Comments MCV (test code = MCV) 91.8 80.0-98.0 [place] 744043-02-22 13:17:00 Test Item Value Reference Range Interpretation Comments MCH (test code = MCH) 30.0 pg 27.0-31.0 [place] 744043-02-22 13:17:00 Test Item Value Reference Range Interpretation Comments MCHC (test code = MCHC) 32.7 32.0-36.0 [place] [address]-02-22 13:17:00 Test Item Value Reference Range Interpretation Comments RDW (test code = RDW) 14.4 11.5-14.5 [place] 744043-02-22 13:17:00 Test Item Value Reference Range Interpretation Comments Platelet (test code = Platelet) 136 133-450 [place] 744043-02-22 13:17:00 Test Item Value Reference Range Interpretation Comments MPV (test code = MPV) 8.7 7.4-10.4 [place] [address]-02-22 13:17:00 Test Item Value Reference Range Interpretation Comments Segs (test code = Segs) 54.4 45.0-75.0 [place] [address]-02-22 13:17:00 Test Item Value Reference Range Interpretation Comments Lymphocytes (test code = Lymphocytes) 29.3 20.0-40.0 [place] 744043-02-22 13:17:00 Test Item Value Reference Range Interpretation Comments Monocytes (test code = Monocytes) 10.5 2.0-12.0 [place] 744043-02-22 13:17:00 Test Item Value Reference Range Interpretation Comments Eosinophils (test code = 5.0 See_Comment [A utomated message] The Eosinophils) system which ge nerated this result tra nsmitted reference range : <=4.0. The reference r christiano was not used to int erpret this result as normal/abnormal . [facility] HospitalUnipvzaRDCLPAQSBZ4008-68-44 13:17:00 Test Item Value Reference Range Interpretation Comments Basophils (test code = 0.8 See_Comment [Aut omated message] The Basophils) system which ge nerated this result tra nsmitted reference range : <=1.0. The reference r christiano was not used to int erpret this result as normal/abnormal . [place] 744043-02-22 13:17:00 Test Item Value Reference Range Interpretation Comments Neutrophils # (test code = Neutrophils 4.1 1.5-8.1 #) [place] 744043-02-22 13:17:00 Test Item Value Reference Range Interpretation Comments Lymphocytes # (test code = Lymphocytes 2.2 1.0-5.5 #) [place] 744043-02-22 13:17:00 Test Item Value Reference Range Interpretation Comments Monocytes # (test code 0.8 See_Comment [Aut omated message] The = Monocytes #) system which generated this result tra nsmitted reference range : <=0.8. The reference r christiano was not used to int erpret this result as normal/abnormal . [facility] HospitalPvtuqeuASXBPUKOWE5203-09-96 13:17:00 Test Item Value Reference Range Interpretation Comments Eosinophils # (test code 0.4 See_Comment [A utomated message] The = Eosinophils #) system whic h generated this result tra nsmitted reference range : <=0.5. The reference r chrsitiano was not used to int erpret this result as normal/abnormal . [facility] HospitalAgibrfnHHCSSIWBGU5830-53-47 13:17:00 Test Item Value Reference Range Interpretation Comments Basophils # (test code 0.1 See_Comment [Aut omated message] The = Basophils #) system which generated this result tra nsmitted reference range : <=0.2. The reference r christiano was not used to int erpret this result as normal/abnormal . [facility] HospitalBxhubwzBOYOCIMOSM4108-98-57 13:17:00 Test Item Value Reference Range Interpretation Comments WBC (test code = WBC) 7.5 3.7-10.4 [place] 744043-02-22 13:17:00 Test Item Value Reference Range Interpretation Comments RBC (test code = RBC) 3.30 4.20-5.40 [place] 744043-02-22 13:17:00 Test Item Value Reference Range Interpretation Comments Hgb (test code = Hgb) 9.9 12.0-16.0 [place] 744043-02-22 13:17:00 Test Item Value Reference Range Interpretation Comments Hct (test code = Hct) 30.3 36.0-48.0 [place] [address]-02-22 13:17:00 Test Item Value Reference Range Interpretation Comments MCV (test code = MCV) 91.8 80.0-98.0 [place] 744043-02-22 13:17:00 Test Item Value Reference Range Interpretation Comments MCH (test code = MCH) 30.0 pg 27.0-31.0 [place] 744043-02-22 13:17:00 Test Item Value Reference Range Interpretation Comments MCHC (test code = MCHC) 32.7 32.0-36.0 [place] 744043-02-22 13:17:00 Test Item Value Reference Range Interpretation Comments RDW (test code = RDW) 14.4 11.5-14.5 [place] 744043-02-22 13:17:00 Test Item Value Reference Range Interpretation Comments Platelet (test code = Platelet) 136 133-450 [place] 744043-02-22 13:17:00 Test Item Value Reference Range Interpretation Comments MPV (test code = MPV) 8.7 7.4-10.4 [facility]2023-02-22 13:17:00 Test Item Value Reference Range Interpretation Comments Ca Ion WB (test code = Ca Ion WB) 1.06 1.05-1.25 [place] 063263-02-22 13:17:00 Test Item Value Reference Range Interpretation Comments Ca Ion at pH 7.4 WB (test code = Ca Ion 1.03 1.05-1.25 at pH 7.4 WB) [facility]2023-02-22 13:17:00 Test Item Value Reference Range Interpretation Comments Glucose Lvl (test code = Glucose Lvl) 65 70-99 [facility]2023-02-22 13:17:00 Test Item Value Reference Range Interpretation Comments BUN (test code = BUN) 39 7-22 [facility]2023-02-22 13:17:00 Test Item Value Reference Range Interpretation Comments Creatinine Lvl (test code = Creatinine 2.03 0.50-1.40 Lvl) [place] 570323-02-22 13:17:00 Test Item Value Reference Range Interpretation Comments Sodium Lvl (test code = Sodium Lvl) 139 135-145 [place] 570323-02-22 13:17:00 Test Item Value Reference Range Interpretation Comments Potassium Lvl (test code = Potassium 4.7 3.5-5.1 Lvl) [place] 570323-02-22 13:17:00 Test Item Value Reference Range Interpretation Comments Chloride Lvl (test code = Chloride Lvl) 107 95-109 [place] 570323-02-22 13:17:00 Test Item Value Reference Range Interpretation Comments CO2 (test code = CO2) - [facility]2023-02-22 13:17:00 Test Item Value Reference Range Interpretation Comments Calcium Lvl (test code = Calcium Lvl) 8.1 8.5-10.5 [place] 570323-02-22 13:17:00 Test Item Value Reference Range Interpretation Comments AGAP (test code = AGAP) 10.7 10.0-20.0 [place] 570323-02-22 13:17:00 Test Item Value Reference Range Interpretation Comments eGFR (test code = eGFR) 24 [place] 570323-02-22 13:17:00 Test Item Value Reference Range Interpretation Comments Magnesium Lvl (test code = Magnesium 2.7 1.8-2.4 Lvl) [facility]2023-02-22 13:17:00 Test Item Value Reference Range Interpretation Comments Phosphorus (test code = Phosphorus) 3.9 2.5-4.5 [facility] CenterDjstmpiMIRKKBJGL7246-36-95 13:17:00 Test Item Value Reference Range Interpretation Comments Glucose Lvl (test code = Glucose Lvl) 65 70-99 [place] 408583-02-22 13:17:00 Test Item Value Reference Range Interpretation Comments BUN (test code = BUN) 39 7-22 [place] 408583-02-22 13:17:00 Test Item Value Reference Range Interpretation Comments Creatinine Lvl (test code = Creatinine 2.03 0.50-1.40 Lvl) [facility] CenterNbrblkoJUSXPBTXO9558-15-13 13:17:00 Test Item Value Reference Range Interpretation Comments Sodium Lvl (test code = Sodium Lvl) 139 135-145 [place] 408583-02-22 13:17:00 Test Item Value Reference Range Interpretation Comments Potassium Lvl (test code = Potassium 4.7 3.5-5.1 Lvl) [place] 408583-02-22 13:17:00 Test Item Value Reference Range Interpretation Comments Chloride Lvl (test code = Chloride Lvl) 107 95-109 [place] 408583-02-22 13:17:00 Test Item Value Reference Range Interpretation Comments CO2 (test code = CO2) - [place] 408583-02-22 13:17:00 Test Item Value Reference Range Interpretation Comments Calcium Lvl (test code = Calcium Lvl) 8.1 8.5-10.5 [place] 408583-02-22 13:17:00 Test Item Value Reference Range Interpretation Comments AGAP (test code = AGAP) 10.7 10.0-20.0 [place] 408583-02-22 13:17:00 Test Item Value Reference Range Interpretation Comments eGFR (test code = eGFR) 24 [facility] CenterRieyvsiVDHPWJXXE2163-58-65 13:17:00 Test Item Value Reference Range Interpretation Comments Ca Ion WB (test code = Ca Ion WB) 1.06 1.05-1.25 [place] 408583-02-22 13:17:00 Test Item Value Reference Range Interpretation Comments Ca Ion at pH 7.4 WB (test code = Ca Ion 1.03 1.05-1.25 at pH 7.4 WB) [facility] CenterTxstwjcELJIQJNBH2176-11-43 13:17:00 Test Item Value Reference Range Interpretation Comments Magnesium Lvl (test code = Magnesium 2.7 1.8-2.4 Lvl) [facility] CenterHrvghwmXDWNFEQAQ2559-16-45 13:17:00 Test Item Value Reference Range Interpretation Comments Phosphorus (test code = Phosphorus) 3.9 2.5-4.5 [facility]rsarrvCROQRQAREH6156[facility]12-89 13:17:00 Test Item Value Reference Range Interpretation Comments Segs (test code = Segs) 54.4 45.0-75.0 [facility] HospitalOdqgjlnYOYHRZLCWT5229-20-01 13:17:00 Test Item Value Reference Range Interpretation Comments Lymphocytes (test code = Lymphocytes) 29.3 20.0-40.0 [place] 744043-02-22 13:17:00 Test Item Value Reference Range Interpretation Comments Monocytes (test code = Monocytes) 10.5 2.0-12.0 [place] 744043-02-22 13:17:00 Test Item Value Reference Range Interpretation Comments Eosinophils (test code = 5.0 See_Comment [A utomated message] The Eosinophils) system which ge nerated this result tra nsmitted reference range : <=4.0. The reference r christiano was not used to int erpret this result as normal/abnormal . [facility] HospitalTupptqsSJHCASVORQ7106-20-28 13:17:00 Test Item Value Reference Range Interpretation Comments Basophils (test code = 0.8 See_Comment [Aut omated message] The Basophils) system which ge nerated this result tra nsmitted reference range : <=1.0. The reference r christiano was not used to int erpret this result as normal/abnormal . [place] 744043-02-22 13:17:00 Test Item Value Reference Range Interpretation Comments Neutrophils # (test code = Neutrophils 4.1 1.5-8.1 #) [facility] HospitalZpnjjqlPTIMNGVWKB5815-94-13 13:17:00 Test Item Value Reference Range Interpretation Comments Lymphocytes # (test code = Lymphocytes 2.2 1.0-5.5 #) [place] 744043-02-22 13:17:00 Test Item Value Reference Range Interpretation Comments Monocytes # (test code 0.8 See_Comment [Aut omated message] The = Monocytes #) system which generated this result tra nsmitted reference range : <=0.8. The reference r christiano was not used to int erpret this result as normal/abnormal . [place] 744043-02-22 13:17:00 Test Item Value Reference Range Interpretation Comments Eosinophils # (test code 0.4 See_Comment [A utomated message] The = Eosinophils #) system whic h generated this result tra nsmitted reference range : <=0.5. The reference r christiano was not used to int erpret this result as normal/abnormal . [place] 744043-02-22 13:17:00 Test Item Value Reference Range Interpretation Comments Basophils # (test code 0.1 See_Comment [Aut omated message] The = Basophils #) system which generated this result tra nsmitted reference range : <=0.2. The reference r christiano was not used to int erpret this result as normal/abnormal . [facility] HospitalShrtgrrDBKEQZCOKV2100-61-47 13:17:00 Test Item Value Reference Range Interpretation Comments WBC (test code = WBC) 7.5 3.7-10.4 [place] 744043-02-22 13:17:00 Test Item Value Reference Range Interpretation Comments RBC (test code = RBC) 3.30 4.20-5.40 [place] 744043-02-22 13:17:00 Test Item Value Reference Range Interpretation Comments Hgb (test code = Hgb) 9.9 12.0-16.0 [place] [address]-02-22 13:17:00 Test Item Value Reference Range Interpretation Comments Hct (test code = Hct) 30.3 36.0-48.0 [place] 744043-02-22 13:17:00 Test Item Value Reference Range Interpretation Comments MCV (test code = MCV) 91.8 80.0-98.0 [place] [address]-02-22 13:17:00 Test Item Value Reference Range Interpretation Comments MCH (test code = MCH) 30.0 pg 27.0-31.0 [place] 744043-02-22 13:17:00 Test Item Value Reference Range Interpretation Comments MCHC (test code = MCHC) 32.7 32.0-36.0 [place] 744043-02-22 13:17:00 Test Item Value Reference Range Interpretation Comments RDW (test code = RDW) 14.4 11.5-14.5 [place] 744043-02-22 13:17:00 Test Item Value Reference Range Interpretation Comments Platelet (test code = Platelet) 136 133-450 [place] 744043-02-22 13:17:00 Test Item Value Reference Range Interpretation Comments MPV (test code = MPV) 8.7 7.4-10.4 [place] [address]-02-22 13:17:00 Test Item Value Reference Range Interpretation Comments Segs (test code = Segs) 54.4 45.0-75.0 [place] [address]-02-22 13:17:00 Test Item Value Reference Range Interpretation Comments Lymphocytes (test code = Lymphocytes) 29.3 20.0-40.0 [place] [address]-02-22 13:17:00 Test Item Value Reference Range Interpretation Comments Monocytes (test code = Monocytes) 10.5 2.0-12.0 [place] [address]-02-22 13:17:00 Test Item Value Reference Range Interpretation Comments Eosinophils (test code = 5.0 See_Comment [A utomated message] The Eosinophils) system which ge nerated this result tra nsmitted reference range : <=4.0. The reference r christiano was not used to int erpret this result as normal/abnormal . [place] 744043-02-22 13:17:00 Test Item Value Reference Range Interpretation Comments Basophils (test code = 0.8 See_Comment [Aut omated message] The Basophils) system which ge nerated this result tra nsmitted reference range : <=1.0. The reference r christiano was not used to int erpret this result as normal/abnormal . [facility] HospitalYaboxxoVWEMPWJZXQ7292-02-29 13:17:00 Test Item Value Reference Range Interpretation Comments Neutrophils # (test code = Neutrophils 4.1 1.5-8.1 #) [facility] HospitalRqerzjcJZLPXAHTRL8218-67-41 13:17:00 Test Item Value Reference Range Interpretation Comments Lymphocytes # (test code = Lymphocytes 2.2 1.0-5.5 #) [place] 744043-02-22 13:17:00 Test Item Value Reference Range Interpretation Comments Monocytes # (test code 0.8 See_Comment [Aut omated message] The = Monocytes #) system which generated this result tra nsmitted reference range : <=0.8. The reference r christiano was not used to int erpret this result as normal/abnormal . [facility] HospitalJdlbdneZMBVSXEIZR9051-89-87 13:17:00 Test Item Value Reference Range Interpretation Comments Eosinophils # (test code 0.4 See_Comment [A utomated message] The = Eosinophils #) system whic h generated this result tra nsmitted reference range : <=0.5. The reference r christiano was not used to int erpret this result as normal/abnormal . [facility] HospitalBpjaztbVLCNIWWDPU0474-70-18 13:17:00 Test Item Value Reference Range Interpretation Comments Basophils # (test code 0.1 See_Comment [Aut omated message] The = Basophils #) system which generated this result tra nsmitted reference range : <=0.2. The reference r christiano was not used to int erpret this result as normal/abnormal . [facility] HospitalCmggqpyWHLXKBBFNL3651-15-05 13:17:00 Test Item Value Reference Range Interpretation Comments WBC (test code = WBC) 7.5 3.7-10.4 [place] 744043-02-22 13:17:00 Test Item Value Reference Range Interpretation Comments RBC (test code = RBC) 3.30 4.20-5.40 [place] [address]-02-22 13:17:00 Test Item Value Reference Range Interpretation Comments Hgb (test code = Hgb) 9.9 12.0-16.0 [place] [address]-02-22 13:17:00 Test Item Value Reference Range Interpretation Comments Hct (test code = Hct) 30.3 36.0-48.0 [place] 744043-02-22 13:17:00 Test Item Value Reference Range Interpretation Comments MCV (test code = MCV) 91.8 80.0-98.0 [place] 744043-02-22 13:17:00 Test Item Value Reference Range Interpretation Comments MCH (test code = MCH) 30.0 pg 27.0-31.0 [place] 744043-02-22 13:17:00 Test Item Value Reference Range Interpretation Comments MCHC (test code = MCHC) 32.7 32.0-36.0 [place] 744043-02-22 13:17:00 Test Item Value Reference Range Interpretation Comments RDW (test code = RDW) 14.4 11.5-14.5 [place] 744043-02-22 13:17:00 Test Item Value Reference Range Interpretation Comments Platelet (test code = Platelet) 136 133-450 [facility] HospitalYnrcrkpYCSJZBDFZW5286-99-85 13:17:00 Test Item Value Reference Range Interpretation Comments MPV (test code = MPV) 8.7 7.4-10.4 [facility]2023-02-22 13:17:00 Test Item Value Reference Range Interpretation Comments Ca Ion WB (test code = Ca Ion WB) 1.06 1.05-1.25 [place] 063263-02-22 13:17:00 Test Item Value Reference Range Interpretation Comments Ca Ion at pH 7.4 WB (test code = Ca Ion 1.03 1.05-1.25 at pH 7.4 WB) [facility]2023-02-22 13:17:00 Test Item Value Reference Range Interpretation Comments Glucose Lvl (test code = Glucose Lvl) 65 70-99 [facility]2023-02-22 13:17:00 Test Item Value Reference Range Interpretation Comments BUN (test code = BUN) 39 7-22 [place] 570323-02-22 13:17:00 Test Item Value Reference Range Interpretation Comments Creatinine Lvl (test code = Creatinine 2.03 0.50-1.40 Lvl) [place] [address]-02-22 13:17:00 Test Item Value Reference Range Interpretation Comments Sodium Lvl (test code = Sodium Lvl) 139 135-145 [place] [address]-02-22 13:17:00 Test Item Value Reference Range Interpretation Comments Potassium Lvl (test code = Potassium 4.7 3.5-5.1 Lvl) [place] 570323-02-22 13:17:00 Test Item Value Reference Range Interpretation Comments Chloride Lvl (test code = Chloride Lvl) 107 95-109 [place] 570323-02-22 13:17:00 Test Item Value Reference Range Interpretation Comments CO2 (test code = CO2) 26 24-32 [place] [address]-02-22 13:17:00 Test Item Value Reference Range Interpretation Comments Calcium Lvl (test code = Calcium Lvl) 8.1 8.5-10.5 [place] 570323-02-22 13:17:00 Test Item Value Reference Range Interpretation Comments AGAP (test code = AGAP) 10.7 10.0-20.0 [place] 570323-02-22 13:17:00 Test Item Value Reference Range Interpretation Comments eGFR (test code = eGFR) 24 [place] 570323-02-22 13:17:00 Test Item Value Reference Range Interpretation Comments Magnesium Lvl (test code = Magnesium 2.7 1.8-2.4 Lvl) [place] 570323-02-22 13:17:00 Test Item Value Reference Range Interpretation Comments Phosphorus (test code = Phosphorus) 3.9 2.5-4.5 [place] [address]-02-22 13:17:00 Test Item Value Reference Range Interpretation Comments Glucose Lvl (test code = Glucose Lvl) 65 70-99 [place] [address]-02-22 13:17:00 Test Item Value Reference Range Interpretation Comments BUN (test code = BUN) 39 7-22 [place] 408583-02-22 13:17:00 Test Item Value Reference Range Interpretation Comments Creatinine Lvl (test code = Creatinine 2.03 0.50-1.40 Lvl) [facility] CenterPhkxuxaYOXPWVYEQ8840-82-54 13:17:00 Test Item Value Reference Range Interpretation Comments Sodium Lvl (test code = Sodium Lvl) 139 135-145 [facility] CenterXxxqkfpVFSNPPQFT2372-29-90 13:17:00 Test Item Value Reference Range Interpretation Comments Potassium Lvl (test code = Potassium 4.7 3.5-5.1 Lvl) [facility] CenterQivdnlbHVZSJKHCE2244-78-91 13:17:00 Test Item Value Reference Range Interpretation Comments Chloride Lvl (test code = Chloride Lvl) 107 95-109 [facility] CenterYocduqhEHUXJJABC4258-55-68 13:17:00 Test Item Value Reference Range Interpretation Comments CO2 (test code = CO2) 26 24-32 [facility] CenterHeehpjyXMMTMZUHL9808-72-89 13:17:00 Test Item Value Reference Range Interpretation Comments Calcium Lvl (test code = Calcium Lvl) 8.1 8.5-10.5 [facility] CenterQmqfukgVZMGWAIWF9103-98-46 13:17:00 Test Item Value Reference Range Interpretation Comments AGAP (test code = AGAP) 10.7 10.0-20.0 [facility] CenterXzldyalBYXWZYIJV0778-97-15 13:17:00 Test Item Value Reference Range Interpretation Comments eGFR (test code = eGFR) 24 [facility] CenterUsmpfaaCBCSQVYYT4024-44-23 13:17:00 Test Item Value Reference Range Interpretation Comments Ca Ion WB (test code = Ca Ion WB) 1.06 1.05-1.25 [facility] CenterSibrodmLVMCSSDST3837-65-19 13:17:00 Test Item Value Reference Range Interpretation Comments Ca Ion at pH 7.4 WB (test code = Ca Ion 1.03 1.05-1.25 at pH 7.4 WB) [facility] CenterHcuykapUIXFEDGZT3266-87-77 13:17:00 Test Item Value Reference Range Interpretation Comments Magnesium Lvl (test code = Magnesium 2.7 1.8-2.4 Lvl) [facility] CenterOrmsyffQKCRYVMAK0695-83-79 13:17:00 Test Item Value Reference Range Interpretation Comments Phosphorus (test code = Phosphorus) 3.9 2.5-4.5 [facility] HospitalNzychtfTYNGHRFLSK2177-72-40 13:17:00 Test Item Value Reference Range Interpretation Comments Segs (test code = Segs) 54.4 45.0-75.0 [place] [address]-02-22 13:17:00 Test Item Value Reference Range Interpretation Comments Lymphocytes (test code = Lymphocytes) 29.3 20.0-40.0 [place] [address]-02-22 13:17:00 Test Item Value Reference Range Interpretation Comments Monocytes (test code = Monocytes) 10.5 2.0-12.0 [place] 744043-02-22 13:17:00 Test Item Value Reference Range Interpretation Comments Eosinophils (test code = 5.0 See_Comment [A utomated message] The Eosinophils) system which ge nerated this result tra nsmitted reference range : <=4.0. The reference r christiano was not used to int erpret this result as normal/abnormal . [place] 744043-02-22 13:17:00 Test Item Value Reference Range Interpretation Comments Basophils (test code = 0.8 See_Comment [Aut omated message] The Basophils) system which ge nerated this result tra nsmitted reference range : <=1.0. The reference r christiano was not used to int erpret this result as normal/abnormal . [place] 744043-02-22 13:17:00 Test Item Value Reference Range Interpretation Comments Neutrophils # (test code = Neutrophils 4.1 1.5-8.1 #) [place] 744043-02-22 13:17:00 Test Item Value Reference Range Interpretation Comments Lymphocytes # (test code = Lymphocytes 2.2 1.0-5.5 #) [place] 744043-02-22 13:17:00 Test Item Value Reference Range Interpretation Comments Monocytes # (test code 0.8 See_Comment [Aut omated message] The = Monocytes #) system which generated this result tra nsmitted reference range : <=0.8. The reference r christiano was not used to int erpret this result as normal/abnormal . [place] 744043-02-22 13:17:00 Test Item Value Reference Range Interpretation Comments Eosinophils # (test code 0.4 See_Comment [A utomated message] The = Eosinophils #) system whic h generated this result tra nsmitted reference range : <=0.5. The reference r christiano was not used to int erpret this result as normal/abnormal . [place] 744043-02-22 13:17:00 Test Item Value Reference Range Interpretation Comments Basophils # (test code 0.1 See_Comment [Aut omated message] The = Basophils #) system which generated this result tra nsmitted reference range : <=0.2. The reference r christiano was not used to int erpret this result as normal/abnormal . [facility] HospitalCmtxxpdQZGWYAVUET6510-26-05 13:17:00 Test Item Value Reference Range Interpretation Comments WBC (test code = WBC) 7.5 3.7-10.4 [place] 744043-02-22 13:17:00 Test Item Value Reference Range Interpretation Comments RBC (test code = RBC) 3.30 4.20-5.40 [place] 744043-02-22 13:17:00 Test Item Value Reference Range Interpretation Comments Hgb (test code = Hgb) 9.9 12.0-16.0 [facility] HospitalEsrvkodZXAKKVOWXL0075-31-36 13:17:00 Test Item Value Reference Range Interpretation Comments Hct (test code = Hct) 30.3 36.0-48.0 [facility] HospitalBvgsacqWUWAPFYLCD8607-62-35 13:17:00 Test Item Value Reference Range Interpretation Comments MCV (test code = MCV) 91.8 80.0-98.0 [place] 744043-02-22 13:17:00 Test Item Value Reference Range Interpretation Comments MCH (test code = MCH) 30.0 pg 27.0-31.0 [facility] HospitalEqcstmuRZCXLDXTFQ2074-06-27 13:17:00 Test Item Value Reference Range Interpretation Comments MCHC (test code = MCHC) 32.7 32.0-36.0 [facility] HospitalPdgecevQIXBUUOJRP4483-57-51 13:17:00 Test Item Value Reference Range Interpretation Comments RDW (test code = RDW) 14.4 11.5-14.5 [place] 744043-02-22 13:17:00 Test Item Value Reference Range Interpretation Comments Platelet (test code = Platelet) 136 133-450 [place] 744043-02-22 13:17:00 Test Item Value Reference Range Interpretation Comments MPV (test code = MPV) 8.7 7.4-10.4 [place] 744043-02-22 13:17:00 Test Item Value Reference Range Interpretation Comments Segs (test code = Segs) 54.4 45.0-75.0 [place] [address]-02-22 13:17:00 Test Item Value Reference Range Interpretation Comments Lymphocytes (test code = Lymphocytes) 29.3 20.0-40.0 [place] [address]-02-22 13:17:00 Test Item Value Reference Range Interpretation Comments Monocytes (test code = Monocytes) 10.5 2.0-12.0 [place] 744043-02-22 13:17:00 Test Item Value Reference Range Interpretation Comments Eosinophils (test code = 5.0 See_Comment [A utomated message] The Eosinophils) system which ge nerated this result tra nsmitted reference range : <=4.0. The reference r christiano was not used to int erpret this result as normal/abnormal . [place] [address]-02-22 13:17:00 Test Item Value Reference Range Interpretation Comments Basophils (test code = 0.8 See_Comment [Aut omated message] The Basophils) system which ge nerated this result tra nsmitted reference range : <=1.0. The reference r christiano was not used to int erpret this result as normal/abnormal . [place] 744043-02-22 13:17:00 Test Item Value Reference Range Interpretation Comments Neutrophils # (test code = Neutrophils 4.1 1.5-8.1 #) [place] [address]-02-22 13:17:00 Test Item Value Reference Range Interpretation Comments Lymphocytes # (test code = Lymphocytes 2.2 1.0-5.5 #) [place] [address]-02-22 13:17:00 Test Item Value Reference Range Interpretation Comments Monocytes # (test code 0.8 See_Comment [Aut omated message] The = Monocytes #) system which generated this result tra nsmitted reference range : <=0.8. The reference r christiano was not used to int erpret this result as normal/abnormal . [place] [address]-02-22 13:17:00 Test Item Value Reference Range Interpretation Comments Eosinophils # (test code 0.4 See_Comment [A utomated message] The = Eosinophils #) system wh h generated this result tra nsmitted reference range : <=0.5. The reference r christiano was not used to int erpret this result as normal/abnormal . [facility]NSYYAKILOV6446-62-50 13:17:00 Test Item Value Reference Range Interpretation Comments Basophils # (test code 0.1 See_Comment [Aut omated message] The = Basophils #) system which generated this result tra nsmitted reference range : <=0.2. The reference r christiano was not used to int erpret this result as normal/abnormal . [facility] HospitalQdmlumdILPSROISAK1616-27-71 13:17:00 Test Item Value Reference Range Interpretation Comments WBC (test code = WBC) 7.5 3.7-10.4 [facility] HospitalBwvtcatRBIXWBPXYZ6608-99-44 13:17:00 Test Item Value Reference Range Interpretation Comments RBC (test code = RBC) 3.30 4.20-5.40 [facility] HospitalHylghtqYVFSWLDPDR7201-88-77 13:17:00 Test Item Value Reference Range Interpretation Comments Hgb (test code = Hgb) 9.9 12.0-16.0 [facility] HospitalDxanwtzOWDIPPYDWS2920-40-59 13:17:00 Test Item Value Reference Range Interpretation Comments Hct (test code = Hct) 30.3 36.0-48.0 [facility] HospitalYahdhppMUSRVMGBQG4164-18-13 13:17:00 Test Item Value Reference Range Interpretation Comments MCV (test code = MCV) 91.8 80.0-98.0 [facility]KdqojzmTWDFCUYGVC5142-39-40 13:17:00 Test Item Value Reference Range Interpretation Comments MCH (test code = MCH) 30.0 pg 27.0-31.0 [facility] HospitalGmeguafXWBRUCDJEX3632-94-64 13:17:00 Test Item Value Reference Range Interpretation Comments MCHC (test code = MCHC) 32.7 32.0-36.0 [facility] HospitalAuxguqzCPNWHUXEMZ4423-32-77 13:17:00 Test Item Value Reference Range Interpretation Comments RDW (test code = RDW) 14.4 11.5-14.5 [facility]FrhslwyCEKZTGNFDX1881-96-65 13:17:00 Test Item Value Reference Range Interpretation Comments Platelet (test code = Platelet) 136 133-450 [facility]UdfgefmMUOSRFISOA8979-06-94 13:17:00 Test Item Value Reference Range Interpretation Comments MPV (test code = MPV) 8.7 7.4-10.4 [place] 063263-02-22 13:17:00 Test Item Value Reference Range Interpretation Comments Ca Ion WB (test code = Ca Ion WB) 1.06 1.05-1.25 [place] 063263-02-22 13:17:00 Test Item Value Reference Range Interpretation Comments Ca Ion at pH 7.4 WB (test code = Ca Ion 1.03 1.05-1.25 at pH 7.4 WB) [place] 570323-02-22 13:17:00 Test Item Value Reference Range Interpretation Comments Glucose Lvl (test code = Glucose Lvl) 65 70-99 [place] 570323-02-22 13:17:00 Test Item Value Reference Range Interpretation Comments BUN (test code = BUN) 39 7-22 [place] 570323-02-22 13:17:00 Test Item Value Reference Range Interpretation Comments Creatinine Lvl (test code = Creatinine 2.03 0.50-1.40 Lvl) [place] 570323-02-22 13:17:00 Test Item Value Reference Range Interpretation Comments Sodium Lvl (test code = Sodium Lvl) 139 135-145 [place] 570323-02-22 13:17:00 Test Item Value Reference Range Interpretation Comments Potassium Lvl (test code = Potassium 4.7 3.5-5.1 Lvl) [place] 570323-02-22 13:17:00 Test Item Value Reference Range Interpretation Comments Chloride Lvl (test code = Chloride Lvl) 107 95-109 [place] 570323-02-22 13:17:00 Test Item Value Reference Range Interpretation Comments CO2 (test code = CO2) 26 24-32 [place] 570323-02-22 13:17:00 Test Item Value Reference Range Interpretation Comments Calcium Lvl (test code = Calcium Lvl) 8.1 8.5-10.5 [place] 570323-02-22 13:17:00 Test Item Value Reference Range Interpretation Comments AGAP (test code = AGAP) 10.7 10.0-20.0 [place] 570323-02-22 13:17:00 Test Item Value Reference Range Interpretation Comments eGFR (test code = eGFR) 24 [place] 570323-02-22 13:17:00 Test Item Value Reference Range Interpretation Comments Magnesium Lvl (test code = Magnesium 2.7 1.8-2.4 Lvl) [facility]2023-02-22 13:17:00 Test Item Value Reference Range Interpretation Comments Phosphorus (test code = Phosphorus) 3.9 2.5-4.5 [facility] CenterYlqmmpdDAUXVCMIE6036-75-46 13:17:00 Test Item Value Reference Range Interpretation Comments Glucose Lvl (test code = Glucose Lvl) 65 70-99 [facility] CenterVvbjzxdMFMXDMXHV7014-79-23 13:17:00 Test Item Value Reference Range Interpretation Comments BUN (test code = BUN) 39 7-22 [facility] CenterDliqxzoCTJQTAVOD5071-77-48 13:17:00 Test Item Value Reference Range Interpretation Comments Creatinine Lvl (test code = Creatinine 2.03 0.50-1.40 Lvl) [facility] CenterYnxfqcbWWEDIZQPH0866-51-20 13:17:00 Test Item Value Reference Range Interpretation Comments Sodium Lvl (test code = Sodium Lvl) 139 135-145 [facility] CenterCrkexouUEKQCBXPJ6109-35-60 13:17:00 Test Item Value Reference Range Interpretation Comments Potassium Lvl (test code = Potassium 4.7 3.5-5.1 Lvl) [facility] CenterFtwrueuWDBBRWRNM4919-74-27 13:17:00 Test Item Value Reference Range Interpretation Comments Chloride Lvl (test code = Chloride Lvl) 107 95-109 [facility] CenterTifsfsoLWNHQCYLV0694-09-82 13:17:00 Test Item Value Reference Range Interpretation Comments CO2 (test code = CO2) 26 24-32 [facility] CenterVpyfkzkZROXNQUVU7503-09-89 13:17:00 Test Item Value Reference Range Interpretation Comments Calcium Lvl (test code = Calcium Lvl) 8.1 8.5-10.5 [facility] CenterXbelgizOXXTSEQLD4424-87-78 13:17:00 Test Item Value Reference Range Interpretation Comments AGAP (test code = AGAP) 10.7 10.0-20.0 [facility] CenterVkauwvpWUCJLPOBG0419-95-92 13:17:00 Test Item Value Reference Range Interpretation Comments eGFR (test code = eGFR) 24 [facility] CenterSkuaeiwOHLGAMOPW6462-73-24 13:17:00 Test Item Value Reference Range Interpretation Comments Ca Ion WB (test code = Ca Ion WB) 1.06 1.05-1.25 [place] 408583-02-22 13:17:00 Test Item Value Reference Range Interpretation Comments Ca Ion at pH 7.4 WB (test code = Ca Ion 1.03 1.05-1.25 at pH 7.4 WB) [place] 408583-02-22 13:17:00 Test Item Value Reference Range Interpretation Comments Magnesium Lvl (test code = Magnesium 2.7 1.8-2.4 Lvl) [place] 408583-02-22 13:17:00 Test Item Value Reference Range Interpretation Comments Phosphorus (test code = Phosphorus) 3.9 2.5-4.5 [place] 744043-02-22 13:17:00 Test Item Value Reference Range Interpretation Comments Segs (test code = Segs) 54.4 45.0-75.0 [place] [address]-02-22 13:17:00 Test Item Value Reference Range Interpretation Comments Lymphocytes (test code = Lymphocytes) 29.3 20.0-40.0 [place] [address]-02-22 13:17:00 Test Item Value Reference Range Interpretation Comments Monocytes (test code = Monocytes) 10.5 2.0-12.0 [place] 744043-02-22 13:17:00 Test Item Value Reference Range Interpretation Comments Eosinophils (test code = 5.0 See_Comment [A utomated message] The Eosinophils) system which nerated this result tra nsmitted reference range : <=4.0. The reference r christiano was not used to int erpret this result as normal/abnormal . [facility]PputnhiRYLCTTZRTK7373-99-52 13:17:00 Test Item Value Reference Range Interpretation Comments Basophils (test code = 0.8 See_Comment [Aut omated message] The Basophils) system which ge nerated this result tra nsmitted reference range : <=1.0. The reference r christiano was not used to int erpret this result as normal/abnormal . [place] 744043-02-22 13:17:00 Test Item Value Reference Range Interpretation Comments Neutrophils # (test code = Neutrophils 4.1 1.5-8.1 #) [place] 744043-02-22 13:17:00 Test Item Value Reference Range Interpretation Comments Lymphocytes # (test code = Lymphocytes 2.2 1.0-5.5 #) [facility] HospitalDfdgxfjXPVDUMHXYB8347-60-38 13:17:00 Test Item Value Reference Range Interpretation Comments Monocytes # (test code 0.8 See_Comment [Aut omated message] The = Monocytes #) system which generated this result tra nsmitted reference range : <=0.8. The reference r christiano was not used to int erpret this result as normal/abnormal . [facility] HospitalFmjooznOTPVBJMFGI9028-42-79 13:17:00 Test Item Value Reference Range Interpretation Comments Eosinophils # (test code 0.4 See_Comment [A utomated message] The = Eosinophils #) system whic h generated this result tra nsmitted reference range : <=0.5. The reference r christiano was not used to int erpret this result as normal/abnormal . [facility] HospitalKbvvlabUMGLPTXZJD6287-20-43 13:17:00 Test Item Value Reference Range Interpretation Comments Basophils # (test code 0.1 See_Comment [Aut omated message] The = Basophils #) system which generated this result tra nsmitted reference range : <=0.2. The reference r christiano was not used to int erpret this result as normal/abnormal . [facility] HospitalEfgdtjoDDYMTMWYRC5749-05-45 13:17:00 Test Item Value Reference Range Interpretation Comments WBC (test code = WBC) 7.5 3.7-10.4 [facility] HospitalVugkzgfCVBILGWZDH8846-81-62 13:17:00 Test Item Value Reference Range Interpretation Comments RBC (test code = RBC) 3.30 4.20-5.40 [place] 744043-02-22 13:17:00 Test Item Value Reference Range Interpretation Comments Hgb (test code = Hgb) 9.9 12.0-16.0 [place] 744043-02-22 13:17:00 Test Item Value Reference Range Interpretation Comments Hct (test code = Hct) 30.3 36.0-48.0 [place] 744043-02-22 13:17:00 Test Item Value Reference Range Interpretation Comments MCV (test code = MCV) 91.8 80.0-98.0 [place] 744043-02-22 13:17:00 Test Item Value Reference Range Interpretation Comments MCH (test code = MCH) 30.0 pg 27.0-31.0 [place] [address]-02-22 13:17:00 Test Item Value Reference Range Interpretation Comments MCHC (test code = MCHC) 32.7 32.0-36.0 [place] 744043-02-22 13:17:00 Test Item Value Reference Range Interpretation Comments RDW (test code = RDW) 14.4 11.5-14.5 [place] [address]-02-22 13:17:00 Test Item Value Reference Range Interpretation Comments Platelet (test code = Platelet) 136 133-450 [place] 744043-02-22 13:17:00 Test Item Value Reference Range Interpretation Comments MPV (test code = MPV) 8.7 7.4-10.4 [place] [address]-02-22 13:17:00 Test Item Value Reference Range Interpretation Comments Segs (test code = Segs) 54.4 45.0-75.0 [place] 744043-02-22 13:17:00 Test Item Value Reference Range Interpretation Comments Lymphocytes (test code = Lymphocytes) 29.3 20.0-40.0 [place] 744043-02-22 13:17:00 Test Item Value Reference Range Interpretation Comments Monocytes (test code = Monocytes) 10.5 2.0-12.0 [place] 744043-02-22 13:17:00 Test Item Value Reference Range Interpretation Comments Eosinophils (test code = 5.0 See_Comment [A utomated message] The Eosinophils) system which ge nerated this result tra nsmitted reference range : <=4.0. The reference r christiano was not used to int erpret this result as normal/abnormal . [place] 744043-02-22 13:17:00 Test Item Value Reference Range Interpretation Comments Basophils (test code = 0.8 See_Comment [Aut omated message] The Basophils) system which ge nerated this result tra nsmitted reference range : <=1.0. The reference r christiano was not used to int erpret this result as normal/abnormal . [place] [address]-02-22 13:17:00 Test Item Value Reference Range Interpretation Comments Neutrophils # (test code = Neutrophils 4.1 1.5-8.1 #) [place] 744043-02-22 13:17:00 Test Item Value Reference Range Interpretation Comments Lymphocytes # (test code = Lymphocytes 2.2 1.0-5.5 #) [place] 744043-02-22 13:17:00 Test Item Value Reference Range Interpretation Comments Monocytes # (test code 0.8 See_Comment [Aut omated message] The = Monocytes #) system which generated this result tra nsmitted reference range : <=0.8. The reference r christiano was not used to int erpret this result as normal/abnormal . [place] 744043-02-22 13:17:00 Test Item Value Reference Range Interpretation Comments Eosinophils # (test code 0.4 See_Comment [A utomated message] The = Eosinophils #) system whic h generated this result tra nsmitted reference range : <=0.5. The reference r christiano was not used to int erpret this result as normal/abnormal . [place] 744043-02-22 13:17:00 Test Item Value Reference Range Interpretation Comments Basophils # (test code 0.1 See_Comment [Aut omated message] The = Basophils #) system which generated this result tra nsmitted reference range : <=0.2. The reference r christiano was not used to int erpret this result as normal/abnormal . [place] 744043-02-22 13:17:00 Test Item Value Reference Range Interpretation Comments WBC (test code = WBC) 7.5 3.7-10.4 [place] 744043-02-22 13:17:00 Test Item Value Reference Range Interpretation Comments RBC (test code = RBC) 3.30 4.20-5.40 [place] [address]-02-22 13:17:00 Test Item Value Reference Range Interpretation Comments Hgb (test code = Hgb) 9.9 12.0-16.0 [place] [address]-02-22 13:17:00 Test Item Value Reference Range Interpretation Comments Hct (test code = Hct) 30.3 36.0-48.0 [place] [address]-02-22 13:17:00 Test Item Value Reference Range Interpretation Comments MCV (test code = MCV) 91.8 80.0-98.0 [place] [address]-02-22 13:17:00 Test Item Value Reference Range Interpretation Comments MCH (test code = MCH) 30.0 pg 27.0-31.0 [place] 744043-02-22 13:17:00 Test Item Value Reference Range Interpretation Comments MCHC (test code = MCHC) 32.7 32.0-36.0 [place] 744043-02-22 13:17:00 Test Item Value Reference Range Interpretation Comments RDW (test code = RDW) 14.4 11.5-14.5 [place] 744043-02-22 13:17:00 Test Item Value Reference Range Interpretation Comments Platelet (test code = Platelet) 136 133-450 [place] 744043-02-22 13:17:00 Test Item Value Reference Range Interpretation Comments MPV (test code = MPV) 8.7 7.4-10.4 [facility]2023-02-22 13:17:00 Test Item Value Reference Range Interpretation Comments Ca Ion WB (test code = Ca Ion WB) 1.06 1.05-1.25 [place] 063263-02-22 13:17:00 Test Item Value Reference Range Interpretation Comments Ca Ion at pH 7.4 WB (test code = Ca Ion 1.03 1.05-1.25 at pH 7.4 WB) [facility]2023-02-22 13:17:00 Test Item Value Reference Range Interpretation Comments Glucose Lvl (test code = Glucose Lvl) 65 70-99 [place] 570323-02-22 13:17:00 Test Item Value Reference Range Interpretation Comments BUN (test code = BUN) 39 7-22 [place] 570323-02-22 13:17:00 Test Item Value Reference Range Interpretation Comments Creatinine Lvl (test code = Creatinine 2.03 0.50-1.40 Lvl) [place] 570323-02-22 13:17:00 Test Item Value Reference Range Interpretation Comments Sodium Lvl (test code = Sodium Lvl) 139 135-145 [place] 570323-02-22 13:17:00 Test Item Value Reference Range Interpretation Comments Potassium Lvl (test code = Potassium 4.7 3.5-5.1 Lvl) [place] 570323-02-22 13:17:00 Test Item Value Reference Range Interpretation Comments Chloride Lvl (test code = Chloride Lvl) 107 95-109 [place] 570323-02-22 13:17:00 Test Item Value Reference Range Interpretation Comments CO2 (test code = CO2) 26 24-32 [place] 570323-02-22 13:17:00 Test Item Value Reference Range Interpretation Comments Calcium Lvl (test code = Calcium Lvl) 8.1 8.5-10.5 [place] 570323-02-22 13:17:00 Test Item Value Reference Range Interpretation Comments AGAP (test code = AGAP) 10.7 10.0-20.0 [place] [address]323-02-22 13:17:00 Test Item Value Reference Range Interpretation Comments eGFR (test code = eGFR) 24 [place] 570323-02-22 13:17:00 Test Item Value Reference Range Interpretation Comments Magnesium Lvl (test code = Magnesium 2.7 1.8-2.4 Lvl) [place] 570323-02-22 13:17:00 Test Item Value Reference Range Interpretation Comments Phosphorus (test code = Phosphorus) 3.9 2.5-4.5 [place] 408583-02-22 13:17:00 Test Item Value Reference Range Interpretation Comments Glucose Lvl (test code = Glucose Lvl) 65 70-99 [place] 408583-02-22 13:17:00 Test Item Value Reference Range Interpretation Comments BUN (test code = BUN) 39 7-22 [facility] CenterOmbslzaFMLYEBBKT3986-04-30 13:17:00 Test Item Value Reference Range Interpretation Comments Creatinine Lvl (test code = Creatinine 2.03 0.50-1.40 Lvl) [facility] CenterFwtcyndGRLTHOQHA4980-67-12 13:17:00 Test Item Value Reference Range Interpretation Comments Sodium Lvl (test code = Sodium Lvl) 139 135-145 [place] 408583-02-22 13:17:00 Test Item Value Reference Range Interpretation Comments Potassium Lvl (test code = Potassium 4.7 3.5-5.1 Lvl) [place] 408583-02-22 13:17:00 Test Item Value Reference Range Interpretation Comments Chloride Lvl (test code = Chloride Lvl) 107 95-109 [place] 408583-02-22 13:17:00 Test Item Value Reference Range Interpretation Comments CO2 (test code = CO2) 26 24-32 [facility] CenterMrgzjzkPDIGLSKKM7725-55-23 13:17:00 Test Item Value Reference Range Interpretation Comments Calcium Lvl (test code = Calcium Lvl) 8.1 8.5-10.5 [place] 408583-02-22 13:17:00 Test Item Value Reference Range Interpretation Comments AGAP (test code = AGAP) 10.7 10.0-20.0 [facility] CenterHtumudvLZRHEMKTE7535-74-24 13:17:00 Test Item Value Reference Range Interpretation Comments eGFR (test code = eGFR) 24 [facility] CenterFfntplvZUFFTPYPF4855-76-68 13:17:00 Test Item Value Reference Range Interpretation Comments Ca Ion WB (test code = Ca Ion WB) 1.06 1.05-1.25 [place] 408583-02-22 13:17:00 Test Item Value Reference Range Interpretation Comments Ca Ion at pH 7.4 WB (test code = Ca Ion 1.03 1.05-1.25 at pH 7.4 WB) [facility] CenterLomniszCWOKTIQND8727-94-87 13:17:00 Test Item Value Reference Range Interpretation Comments Magnesium Lvl (test code = Magnesium 2.7 1.8-2.4 Lvl) [facility] CenterPmbrdhdIFVZTZPHV4706-32-84 13:17:00 Test Item Value Reference Range Interpretation Comments Phosphorus (test code = Phosphorus) 3.9 2.5-4.5 [place] 744043-02-22 13:17:00 Test Item Value Reference Range Interpretation Comments Segs (test code = Segs) 54.4 45.0-75.0 [place] 744043-02-22 13:17:00 Test Item Value Reference Range Interpretation Comments Lymphocytes (test code = Lymphocytes) 29.3 20.0-40.0 [place] 744043-02-22 13:17:00 Test Item Value Reference Range Interpretation Comments Monocytes (test code = Monocytes) 10.5 2.0-12.0 [place] 744043-02-22 13:17:00 Test Item Value Reference Range Interpretation Comments Eosinophils (test code = 5.0 See_Comment [A utomated message] The Eosinophils) system which ge nerated this result tra nsmitted reference range : <=4.0. The reference r christiano was not used to int erpret this result as normal/abnormal . [place] 744043-02-22 13:17:00 Test Item Value Reference Range Interpretation Comments Basophils (test code = 0.8 See_Comment [Aut omated message] The Basophils) system which ge nerated this result tra nsmitted reference range : <=1.0. The reference r christiano was not used to int erpret this result as normal/abnormal . [place] 744043-02-22 13:17:00 Test Item Value Reference Range Interpretation Comments Neutrophils # (test code = Neutrophils 4.1 1.5-8.1 #) [facility] HospitalDsvyquaFDERHPKDHX6474-26-11 13:17:00 Test Item Value Reference Range Interpretation Comments Lymphocytes # (test code = Lymphocytes 2.2 1.0-5.5 #) [place] 744043-02-22 13:17:00 Test Item Value Reference Range Interpretation Comments Monocytes # (test code 0.8 See_Comment [Aut omated message] The = Monocytes #) system which generated this result tra nsmitted reference range : <=0.8. The reference r christiano was not used to int erpret this result as normal/abnormal . [place] 744043-02-22 13:17:00 Test Item Value Reference Range Interpretation Comments Eosinophils # (test code 0.4 See_Comment [A utomated message] The = Eosinophils #) system whic h generated this result tra nsmitted reference range : <=0.5. The reference r christiano was not used to int erpret this result as normal/abnormal . [place] 744043-02-22 13:17:00 Test Item Value Reference Range Interpretation Comments Basophils # (test code 0.1 See_Comment [Aut omated message] The = Basophils #) system which generated this result tra nsmitted reference range : <=0.2. The reference r christiano was not used to int erpret this result as normal/abnormal . [place] 744043-02-22 13:17:00 Test Item Value Reference Range Interpretation Comments WBC (test code = WBC) 7.5 3.7-10.4 [place] 744043-02-22 13:17:00 Test Item Value Reference Range Interpretation Comments RBC (test code = RBC) 3.30 4.20-5.40 [facility] HospitalLausqznQKCOHNWNDQ7394-59-89 13:17:00 Test Item Value Reference Range Interpretation Comments Hgb (test code = Hgb) 9.9 12.0-16.0 [place] 744043-02-22 13:17:00 Test Item Value Reference Range Interpretation Comments Hct (test code = Hct) 30.3 36.0-48.0 [facility] HospitalIihctwwGUJLNDTRGT3501-47-77 13:17:00 Test Item Value Reference Range Interpretation Comments MCV (test code = MCV) 91.8 80.0-98.0 [facility] HospitalMhvrseiTRVJREDPFU4411-41-32 13:17:00 Test Item Value Reference Range Interpretation Comments MCH (test code = MCH) 30.0 pg 27.0-31.0 [facility] HospitalAocbhwdEUHGSBEEKW6964-52-40 13:17:00 Test Item Value Reference Range Interpretation Comments MCHC (test code = MCHC) 32.7 32.0-36.0 [facility] HospitalVhscbxhYJRSXPCVXC2447-49-43 13:17:00 Test Item Value Reference Range Interpretation Comments RDW (test code = RDW) 14.4 11.5-14.5 [facility] HospitalHlyuzuqLIPABWXRPQ7666-27-44 13:17:00 Test Item Value Reference Range Interpretation Comments Platelet (test code = Platelet) 136 133-450 [facility] HospitalPepnbohJXMRQGNCCN4965-11-23 13:17:00 Test Item Value Reference Range Interpretation Comments MPV (test code = MPV) 8.7 7.4-10.4 [place] 744043-02-22 13:17:00 Test Item Value Reference Range Interpretation Comments Segs (test code = Segs) 54.4 45.0-75.0 [place] 744043-02-22 13:17:00 Test Item Value Reference Range Interpretation Comments Lymphocytes (test code = Lymphocytes) 29.3 20.0-40.0 [place] 744043-02-22 13:17:00 Test Item Value Reference Range Interpretation Comments Monocytes (test code = Monocytes) 10.5 2.0-12.0 [facility] HospitalIzblmltAVJLQNBHKP5653-12-43 13:17:00 Test Item Value Reference Range Interpretation Comments Eosinophils (test code = 5.0 See_Comment [A utomated message] The Eosinophils) system which ge nerated this result tra nsmitted reference range : <=4.0. The reference r christiano was not used to int erpret this result as normal/abnormal . [facility] HospitalMaijcypCKMZMDXXGS0702-55-02 13:17:00 Test Item Value Reference Range Interpretation Comments Basophils (test code = 0.8 See_Comment [Aut omated message] The Basophils) system which ge nerated this result tra nsmitted reference range : <=1.0. The reference r christiano was not used to int erpret this result as normal/abnormal . [place] 744043-02-22 13:17:00 Test Item Value Reference Range Interpretation Comments Neutrophils # (test code = Neutrophils 4.1 1.5-8.1 #) [place] 744043-02-22 13:17:00 Test Item Value Reference Range Interpretation Comments Lymphocytes # (test code = Lymphocytes 2.2 1.0-5.5 #) [place] 744043-02-22 13:17:00 Test Item Value Reference Range Interpretation Comments Monocytes # (test code 0.8 See_Comment [Aut omated message] The = Monocytes #) system which generated this result tra nsmitted reference range : <=0.8. The reference r christiano was not used to int erpret this result as normal/abnormal . [facility] HospitalCpuojlzJRWGSMHPWQ6041-93-63 13:17:00 Test Item Value Reference Range Interpretation Comments Eosinophils # (test code 0.4 See_Comment [A utomated message] The = Eosinophils #) system whic h generated this result tra nsmitted reference range : <=0.5. The reference r christiano was not used to int erpret this result as normal/abnormal . [facility] HospitalVgjmuxdIHLTKEZAXT1061-05-20 13:17:00 Test Item Value Reference Range Interpretation Comments Basophils # (test code 0.1 See_Comment [Aut omated message] The = Basophils #) system which generated this result tra nsmitted reference range : <=0.2. The reference r christiano was not used to int erpret this result as normal/abnormal . [place] 744043-02-22 13:17:00 Test Item Value Reference Range Interpretation Comments WBC (test code = WBC) 7.5 3.7-10.4 [place] 744043-02-22 13:17:00 Test Item Value Reference Range Interpretation Comments RBC (test code = RBC) 3.30 4.20-5.40 [place] 744043-02-22 13:17:00 Test Item Value Reference Range Interpretation Comments Hgb (test code = Hgb) 9.9 12.0-16.0 [place] 744043-02-22 13:17:00 Test Item Value Reference Range Interpretation Comments Hct (test code = Hct) 30.3 36.0-48.0 [facility] HospitalSvrlmrdQWOJPEAODR9433-10-48 13:17:00 Test Item Value Reference Range Interpretation Comments MCV (test code = MCV) 91.8 80.0-98.0 [facility] HospitalQsidcvsNSSCJUTGML0027-50-49 13:17:00 Test Item Value Reference Range Interpretation Comments MCH (test code = MCH) 30.0 pg 27.0-31.0 [facility] HospitalRbdqggoYNZNPVFSXO2402-86-31 13:17:00 Test Item Value Reference Range Interpretation Comments MCHC (test code = MCHC) 32.7 32.0-36.0 [facility] HospitalZmitkkcHSKCLCDUMO1678-26-28 13:17:00 Test Item Value Reference Range Interpretation Comments RDW (test code = RDW) 14.4 11.5-14.5 [facility] HospitalGuabcnjJVIOFSVZTR1241-00-56 13:17:00 Test Item Value Reference Range Interpretation Comments Platelet (test code = Platelet) 136 133-450 [facility] HospitalCexgserVBKQQMQGPH3137-67-63 13:17:00 Test Item Value Reference Range Interpretation Comments MPV (test code = MPV) 8.7 7.4-10.4 [facility] EQTXGKD6353[facility]80-06 13:17:00 Test Item Value Reference Range Interpretation Comments Ca Ion WB (test code = Ca Ion WB) 1.06 1.05-1.25 [facility]2023-02-22 13:17:00 Test Item Value Reference Range Interpretation Comments Ca Ion at pH 7.4 WB (test code = Ca Ion 1.03 1.05-1.25 at pH 7.4 WB) [facility]2023-02-22 13:17:00 Test Item Value Reference Range Interpretation Comments Glucose Lvl (test code = Glucose Lvl) 65 70-99 [facility]2023-02-22 13:17:00 Test Item Value Reference Range Interpretation Comments BUN (test code = BUN) 39 7-22 [place] 570323-02-22 13:17:00 Test Item Value Reference Range Interpretation Comments Creatinine Lvl (test code = Creatinine 2.03 0.50-1.40 Lvl) [place] 570323-02-22 13:17:00 Test Item Value Reference Range Interpretation Comments Sodium Lvl (test code = Sodium Lvl) 139 135-145 [place] 570323-02-22 13:17:00 Test Item Value Reference Range Interpretation Comments Potassium Lvl (test code = Potassium 4.7 3.5-5.1 Lvl) [place] 570323-02-22 13:17:00 Test Item Value Reference Range Interpretation Comments Chloride Lvl (test code = Chloride Lvl) 107 95-109 [facility] [place]2023-02-22 13:17:00 Test Item Value Reference Range Interpretation Comments CO2 (test code = CO2) 26 24-32 [place] 570323-02-22 13:17:00 Test Item Value Reference Range Interpretation Comments Calcium Lvl (test code = Calcium Lvl) 8.1 8.5-10.5 [place] 570323-02-22 13:17:00 Test Item Value Reference Range Interpretation Comments AGAP (test code = AGAP) 10.7 10.0-20.0 [place] 570323-02-22 13:17:00 Test Item Value Reference Range Interpretation Comments eGFR (test code = eGFR) 24 [place] 570323-02-22 13:17:00 Test Item Value Reference Range Interpretation Comments Magnesium Lvl (test code = Magnesium 2.7 1.8-2.4 Lvl) [facility] [place]2023-[facility]-22 13:17:00 Test Item Value Reference Range Interpretation Comments Phosphorus (test code = Phosphorus) 3.9 2.5-4.5 [place] 408583-02-22 13:17:00 Test Item Value Reference Range Interpretation Comments Glucose Lvl (test code = Glucose Lvl) 65 70-99 [place] 408583-02-22 13:17:00 Test Item Value Reference Range Interpretation Comments BUN (test code = BUN) 39 7-22 [place] [address]-02-22 13:17:00 Test Item Value Reference Range Interpretation Comments Creatinine Lvl (test code = Creatinine 2.03 0.50-1.40 Lvl) [facility] CenterYfcprjqMOEXIUYUN4951-22-76 13:17:00 Test Item Value Reference Range Interpretation Comments Sodium Lvl (test code = Sodium Lvl) 139 135-145 [place] 408583-02-22 13:17:00 Test Item Value Reference Range Interpretation Comments Potassium Lvl (test code = Potassium 4.7 3.5-5.1 Lvl) [facility] CenterGibhlycIKOKVOAYY8592-54-42 13:17:00 Test Item Value Reference Range Interpretation Comments Chloride Lvl (test code = Chloride Lvl) 107 95-109 [facility] CenterRdvmmegFRVVQWJFI6708-15-36 13:17:00 Test Item Value Reference Range Interpretation Comments CO2 (test code = CO2) 26 24-32 [facility] CenterYnovuooWEDSVBGGR9987-82-21 13:17:00 Test Item Value Reference Range Interpretation Comments Calcium Lvl (test code = Calcium Lvl) 8.1 8.5-10.5 [facility] CenterZpzclboDEUIBGHEP0052-03-34 13:17:00 Test Item Value Reference Range Interpretation Comments AGAP (test code = AGAP) 10.7 10.0-20.0 [facility] CenterYgkmqdnMOBJHZKDT9421-11-17 13:17:00 Test Item Value Reference Range Interpretation Comments eGFR (test code = eGFR) 24 [facility] CenterIyllyjkGDLPTIRHO5316-59-97 13:17:00 Test Item Value Reference Range Interpretation Comments Ca Ion WB (test code = Ca Ion WB) 1.06 1.05-1.25 [place] 408583-02-22 13:17:00 Test Item Value Reference Range Interpretation Comments Ca Ion at pH 7.4 WB (test code = Ca Ion 1.03 1.05-1.25 at pH 7.4 WB) [facility] CenterBsoochxZSLZSCUGO9248-54-28 13:17:00 Test Item Value Reference Range Interpretation Comments Magnesium Lvl (test code = Magnesium 2.7 1.8-2.4 Lvl) [facility] CenterAbfzcihPKVBYFEHC0445-90-90 13:17:00 Test Item Value Reference Range Interpretation Comments Phosphorus (test code = Phosphorus) 3.9 2.5-4.5 [facility]IifdvtoDHGLCKRCQA2079-53-78 13:17:00 Test Item Value Reference Range Interpretation Comments Segs (test code = Segs) 54.4 45.0-75.0 [place] [address]-02-22 13:17:00 Test Item Value Reference Range Interpretation Comments Lymphocytes (test code = Lymphocytes) 29.3 20.0-40.0 [place] 744043-02-22 13:17:00 Test Item Value Reference Range Interpretation Comments Monocytes (test code = Monocytes) 10.5 2.0-12.0 [place] 744043-02-22 13:17:00 Test Item Value Reference Range Interpretation Comments Eosinophils (test code = 5.0 See_Comment [A utomated message] The Eosinophils) system which ge nerated this result tra nsmitted reference range : <=4.0. The reference r christiano was not used to int erpret this result as normal/abnormal . [place] [address]-02-22 13:17:00 Test Item Value Reference Range Interpretation Comments Basophils (test code = 0.8 See_Comment [Aut omated message] The Basophils) system which ge nerated this result tra nsmitted reference range : <=1.0. The reference r christiano was not used to int erpret this result as normal/abnormal . [place] 744043-02-22 13:17:00 Test Item Value Reference Range Interpretation Comments Neutrophils # (test code = Neutrophils 4.1 1.5-8.1 #) [place] 744043-02-22 13:17:00 Test Item Value Reference Range Interpretation Comments Lymphocytes # (test code = Lymphocytes 2.2 1.0-5.5 #) [place] [address]-02-22 13:17:00 Test Item Value Reference Range Interpretation Comments Monocytes # (test code 0.8 See_Comment [Aut omated message] The = Monocytes #) system which generated this result tra nsmitted reference range : <=0.8. The reference r christiano was not used to int erpret this result as normal/abnormal . [place] 744043-02-22 13:17:00 Test Item Value Reference Range Interpretation Comments Eosinophils # (test code 0.4 See_Comment [A utomated message] The = Eosinophils #) system whic h generated this result tra nsmitted reference range : <=0.5. The reference r christiano was not used to int erpret this result as normal/abnormal . [facility] HospitalLvwhwyaPSEXFTVIBW0799-78-95 13:17:00 Test Item Value Reference Range Interpretation Comments Basophils # (test code 0.1 See_Comment [Aut omated message] The = Basophils #) system which generated this result tra nsmitted reference range : <=0.2. The reference r christiano was not used to int erpret this result as normal/abnormal . [facility] HospitalZiszsveTQCHUYFOXG5430-71-68 13:17:00 Test Item Value Reference Range Interpretation Comments WBC (test code = WBC) 7.5 3.7-10.4 [place] 744043-02-22 13:17:00 Test Item Value Reference Range Interpretation Comments RBC (test code = RBC) 3.30 4.20-5.40 [place] 744043-02-22 13:17:00 Test Item Value Reference Range Interpretation Comments Hgb (test code = Hgb) 9.9 12.0-16.0 [place] 744043-02-22 13:17:00 Test Item Value Reference Range Interpretation Comments Hct (test code = Hct) 30.3 36.0-48.0 [place] 744043-02-22 13:17:00 Test Item Value Reference Range Interpretation Comments MCV (test code = MCV) 91.8 80.0-98.0 [place] 744043-02-22 13:17:00 Test Item Value Reference Range Interpretation Comments MCH (test code = MCH) 30.0 pg 27.0-31.0 [place] 744043-02-22 13:17:00 Test Item Value Reference Range Interpretation Comments MCHC (test code = MCHC) 32.7 32.0-36.0 [place] 744043-02-22 13:17:00 Test Item Value Reference Range Interpretation Comments RDW (test code = RDW) 14.4 11.5-14.5 [place] 744043-02-22 13:17:00 Test Item Value Reference Range Interpretation Comments Platelet (test code = Platelet) 136 133-450 [place] 744043-02-22 13:17:00 Test Item Value Reference Range Interpretation Comments MPV (test code = MPV) 8.7 7.4-10.4 [place] 744043-02-22 13:17:00 Test Item Value Reference Range Interpretation Comments Segs (test code = Segs) 54.4 45.0-75.0 [place] 744043-02-22 13:17:00 Test Item Value Reference Range Interpretation Comments Lymphocytes (test code = Lymphocytes) 29.3 20.0-40.0 [place] 744043-02-22 13:17:00 Test Item Value Reference Range Interpretation Comments Monocytes (test code = Monocytes) 10.5 2.0-12.0 [place] 744043-02-22 13:17:00 Test Item Value Reference Range Interpretation Comments Eosinophils (test code = 5.0 See_Comment [A utomated message] The Eosinophils) system which ge nerated this result tra nsmitted reference range : <=4.0. The reference r christiano was not used to int erpret this result as normal/abnormal . [place] 744043-02-22 13:17:00 Test Item Value Reference Range Interpretation Comments Basophils (test code = 0.8 See_Comment [Aut omated message] The Basophils) system which ge nerated this result tra nsmitted reference range : <=1.0. The reference r christiano was not used to int erpret this result as normal/abnormal . [place] 744043-02-22 13:17:00 Test Item Value Reference Range Interpretation Comments Neutrophils # (test code = Neutrophils 4.1 1.5-8.1 #) [place] 744043-02-22 13:17:00 Test Item Value Reference Range Interpretation Comments Lymphocytes # (test code = Lymphocytes 2.2 1.0-5.5 #) [place] [address]-02-22 13:17:00 Test Item Value Reference Range Interpretation Comments Monocytes # (test code 0.8 See_Comment [Aut omated message] The = Monocytes #) system which generated this result tra nsmitted reference range : <=0.8. The reference r christiano was not used to int erpret this result as normal/abnormal . [place] 744043-02-22 13:17:00 Test Item Value Reference Range Interpretation Comments Eosinophils # (test code 0.4 See_Comment [A utomated message] The = Eosinophils #) system whic h generated this result tra nsmitted reference range : <=0.5. The reference r christiano was not used to int erpret this result as normal/abnormal . [facility] HospitalMsjirckSGOAEOZHUX3041-87-43 13:17:00 Test Item Value Reference Range Interpretation Comments Basophils # (test code 0.1 See_Comment [Aut omated message] The = Basophils #) system which generated this result tra nsmitted reference range : <=0.2. The reference r christiano was not used to int erpret this result as normal/abnormal . [facility] HospitalTzhahbzMVSJBONNHB4695-46-46 13:17:00 Test Item Value Reference Range Interpretation Comments WBC (test code = WBC) 7.5 3.7-10.4 [facility] HospitalKnbkhfbXBNNDSQMPU2482-89-82 13:17:00 Test Item Value Reference Range Interpretation Comments RBC (test code = RBC) 3.30 4.20-5.40 [facility] HospitalSfremsbSDGGRHQKQU3528-62-03 13:17:00 Test Item Value Reference Range Interpretation Comments Hgb (test code = Hgb) 9.9 12.0-16.0 [place] 744043-02-22 13:17:00 Test Item Value Reference Range Interpretation Comments Hct (test code = Hct) 30.3 36.0-48.0 [facility] HospitalWdzxjtxVMJMTTPBVC6986-01-90 13:17:00 Test Item Value Reference Range Interpretation Comments MCV (test code = MCV) 91.8 80.0-98.0 [facility] HospitalXvwgmjtGIVFHWYVJP9188-34-61 13:17:00 Test Item Value Reference Range Interpretation Comments MCH (test code = MCH) 30.0 pg 27.0-31.0 [place] 744043-02-22 13:17:00 Test Item Value Reference Range Interpretation Comments MCHC (test code = MCHC) 32.7 32.0-36.0 [place] 744043-02-22 13:17:00 Test Item Value Reference Range Interpretation Comments RDW (test code = RDW) 14.4 11.5-14.5 [place] 744043-02-22 13:17:00 Test Item Value Reference Range Interpretation Comments Platelet (test code = Platelet) 136 133-450 [facility] HospitalWuynlotNESAKPZPQR9478-92-82 13:17:00 Test Item Value Reference Range Interpretation Comments MPV (test code = MPV) 8.7 7.4-10.4 [facility] ChildrenbernieBANNER BEH[facility]IORAL HEALTH HOSPITALATHYROID [id number] 13:17:00 Test Item Value Reference Range Interpretation Comments Ca Ion WB (test code = Ca Ion WB) 1.06 1.05-1.25 [facility] ChildrenberniePARATHYROID TQMKXJU0906-03-85 13:17:00 Test Item Value Reference Range Interpretation Comments Ca Ion at pH 7.4 WB (test code = Ca Ion 1.03 1.05-1.25 at pH 7.4 WB) [facility] CenterDyoweotEAKPINGMK5912-20-79 15:39:00 Test Item Value Reference Range Interpretation Comments U Amph Scr (test code Negative *NA*(11/21/22 = U Amph Scr) 9:39 AM) [facility] CenterWijrbnqOEWXFXIVY5814-05-31 15:39:00 Test Item Value Reference Range Interpretation Comments U Analilia Scr (test code Positive *ABN*(11/21/22 = U Analilia Scr) 9:39 AM) [facility] CenterIvhcxcwGMXKUJGOV0743-90-14 15:39:00 Test Item Value Reference Range Interpretation Comments U Benzodiaz Scr (test Negative *NA*(11/21/22 code = U Benzodiaz Scr) 9:39 AM) [facility] CenterLrbovytOFHXNAHDG2913-75-54 15:39:00 Test Item Value Reference Range Interpretation Comments U Cocaine Scr (test Negative *NA*(11/21/22 code = U Cocaine Scr) 9:39 AM) [facility] CenterElvprmkHPHQAAODX6265-78-97 15:39:00 Test Item Value Reference Range Interpretation Comments U Cannab Scr (test Negative *NA*(11/21/22 code = U Cannab Scr) 9:39 AM) [facility] CenterNcrnqebLEWFRTVEV5694-57-94 15:39:00 Test Item Value Reference Range Interpretation Comments U Opiate Scr (test Positive *ABN*(11/21/22 code = U Opiate Scr) 9:39 AM) [facility] CenterLhungsdZOYQNMBWX0589-81-70 15:39:00 Test Item Value Reference Range Interpretation Comments U Phencyclidine Scr (test Negative code = U Phencyclidine *NA*(11/21/22 9:39 Scr) AM) [facility] CenterBtdwmzkUDEMQSGQO5966-69-17 15:39:00 Test Item Value Reference Range Interpretation Comments UDS Note (test code = See Note (11/21/22 9:39 UDS Note) AM) [facility] ChildrenHworjknDMHXCEHZIZ4688-73-62 15:39:00 Test Item Value Reference Range Interpretation Comments Coronavirus (COVID-19) Not Detected (11/21/22 JONATHAN (test code = 9:39 AM) Coronavirus (COVID-19) JONATHAN) [facility] [id number] 15:39:00 Test Item Value Reference Range Interpretation Comments UA Color (test code = Light Yellow UA Color) *NA*(11/21/22 9:39 AM) [facility] [id number] 15:39:00 Test Item Value Reference Range Interpretation Comments UA Turbidity (test code = Clear (11/21/22 9:39 UA Turbidity) AM) [facility] [id number] 15:39:00 Test Item Value Reference Range Interpretation Comments UA Spec Grav (test code = UA Spec 1.014 1 Grav) [facility]ann[facility] [id number] 15:39:00 Test Item Value Reference Range Interpretation Comments UA pH (test code = UA pH) 6.0 1 5.0-8.0 [facility] [id number] 15:39:00 Test Item Value Reference Range Interpretation Comments UA Protein (test code = UA Protein) 30 mg/dL [facility] [id number] 15:39:00 Test Item Value Reference Range Interpretation Comments UA Glucose (test code = UA Negative mg/dL Glucose) [facility] [id number] 15:39:00 Test Item Value Reference Range Interpretation Comments UA Ketones (test code = UA Negative mg/dL Ketones) [facility] [id number] 15:39:00 Test Item Value Reference Range Interpretation Comments UA Bili (test code = Negative *NA*(11/21/22 UA Bili) 9:39 AM) [facility] [id number] 15:39:00 Test Item Value Reference Range Interpretation Comments UA Blood (test code = Negative (11/21/22 9:39 UA Blood) AM) [facility] [id number] 15:39:00 Test Item Value Reference Range Interpretation Comments UA Urobilinogen (test code = UA no gt 0.1-1.0 Urobilinogen) [facility] AND [id number] 15:39:00 Test Item Value Reference Range Interpretation Comments UA Nitrite (test code Negative (11/21/22 9:39 = UA Nitrite) AM) [facility] AND [id number] 15:39:00 Test Item Value Reference Range Interpretation Comments UA Leuk Est (test Negative (11/21/22 9:39 code = UA Leuk Est) AM) [facility] AND [id number] 15:39:00 Test Item Value Reference Range Interpretation Comments UA Sq Epi (test code = UA Sq Occasional /LPF Epi) [facility] AND [id number] 15:39:00 Test Item Value Reference Range Interpretation Comments UA WBC (test code = no gt See_Comment [Automa sheba message] The UA WBC) system which ge nerated this result transmit sheba reference range : <=5. The reference range was not used to interpr et this result as edy l/abnormal. [facility] AND [id number] 15:39:00 Test Item Value Reference Range Interpretation Comments UA RBC (test code = no gt See_Comment [Automa sheba message] The UA RBC) system which ge nerated this result transmit sheba reference range : <=2. The reference range was not used to interpr et this result as edy l/abnormal. [facility] CenterEpitkpoIZGHPUYMB4471-36-82 15:39:00 Test Item Value Reference Range Interpretation Comments U Amph Scr (test code Negative *NA*(11/21/22 = U Amph Scr) 9:39 AM) [facility] CenterCafgpkmVGUFSHLNZ1804-78-67 15:39:00 Test Item Value Reference Range Interpretation Comments U Analilia Scr (test code Positive *ABN*(11/21/22 = U Analilia Scr) 9:39 AM) [facility] CenterNuffqxyXOTWAGVEV1691-82-05 15:39:00 Test Item Value Reference Range Interpretation Comments U Benzodiaz Scr (test Negative *NA*(11/21/22 code = U Benzodiaz Scr) 9:39 AM) [facility] CenterQmvzednXAXDCOWHX5749-57-79 15:39:00 Test Item Value Reference Range Interpretation Comments U Cocaine Scr (test Negative *NA*(11/21/22 code = U Cocaine Scr) 9:39 AM) [facility] RgoyzyjLAJQDXZJH5013-67-20 15:39:00 Test Item Value Reference Range Interpretation Comments U Cannab Scr (test Negative *NA*(11/21/22 code = U Cannab Scr) 9:39 AM) [facility] YveedcxMHEBNDONO8428-18-68 15:39:00 Test Item Value Reference Range Interpretation Comments U Opiate Scr (test Positive *ABN*(11/21/22 code = U Opiate Scr) 9:39 AM) [facility] OkchykcRFFTMLGWV9451-43-33 15:39:00 Test Item Value Reference Range Interpretation Comments U Phencyclidine Scr (test Negative code = U Phencyclidine *NA*(11/21/22 9:39 Scr) AM) [facility] LxpkcwiUSDLEYQPY1760-14-65 15:39:00 Test Item Value Reference Range Interpretation Comments UDS Note (test code = See Note (11/21/22 9:39 UDS Note) AM) [facility]udaMsbjvgsJKYVMGJIKV1377-16-94 15:39:00 Test Item Value Reference Range Interpretation Comments Coronavirus (COVID-19) Not Detected (11/21/22 JONATHAN (test code = 9:39 AM) Coronavirus (COVID-19) JONATHAN) [facility] [id number] 15:39:00 Test Item Value Reference Range Interpretation Comments UA Color (test code = Light Yellow UA Color) *NA*(11/21/22 9:39 AM) [facility] [id number] 15:39:00 Test Item Value Reference Range Interpretation Comments UA Turbidity (test code = Clear (11/21/22 9:39 UA Turbidity) AM) [facility] [id number] 15:39:00 Test Item Value Reference Range Interpretation Comments UA Spec Grav (test code = UA Spec 1.014 1 Grav) [facility] [id number] 15:39:00 Test Item Value Reference Range Interpretation Comments UA pH (test code = UA pH) 6.0 1 5.0-8.0 [facility] [id number] 15:39:00 Test Item Value Reference Range Interpretation Comments UA Protein (test code = UA Protein) 30 mg/dL [facility] [id number] 15:39:00 Test Item Value Reference Range Interpretation Comments UA Glucose (test code = UA Negative mg/dL Glucose) [facility]ann[facility] AND [id number] 15:39:00 Test Item Value Reference Range Interpretation Comments UA Ketones (test code = UA Negative mg/dL Ketones) [facility]ann[facility] [id number] 15:39:00 Test Item Value Reference Range Interpretation Comments UA Bili (test code = Negative *NA*(11/21/22 UA Bili) 9:39 AM) [facility] AND [id number] 15:39:00 Test Item Value Reference Range Interpretation Comments UA Blood (test code = Negative (11/21/22 9:39 UA Blood) AM) [facility] AND [id number] 15:39:00 Test Item Value Reference Range Interpretation Comments UA Urobilinogen (test code = UA no gt 0.1-1.0 Urobilinogen) [facility] AND [id number] 15:39:00 Test Item Value Reference Range Interpretation Comments UA Nitrite (test code Negative (11/21/22 9:39 = UA Nitrite) AM) [facility] AND [id number] 15:39:00 Test Item Value Reference Range Interpretation Comments UA Leuk Est (test Negative (11/21/22 9:39 code = UA Leuk Est) AM) [facility] AND [id number] 15:39:00 Test Item Value Reference Range Interpretation Comments UA Sq Epi (test code = UA Sq Occasional /LPF Epi) [facility] AND [id number] 15:39:00 Test Item Value Reference Range Interpretation Comments UA WBC (test code = no gt See_Comment [Automa sheba message] The UA WBC) system which ge nerated this result transmit sheba reference range : <=5. The reference range was not used to interpr et this result as edy l/abnormal. [facility] AND [id number] 15:39:00 Test Item Value Reference Range Interpretation Comments UA RBC (test code = no gt See_Comment [Automa sheba message] The UA RBC) system which ge nerated this result transmit sheba reference range : <=2. The reference range was not used to interpr et this result as edy l/abnormal. [facility] ChildrenIphuiusVIKMVKRLA2976-17-55 15:39:00 Test Item Value Reference Range Interpretation Comments U Amph Scr (test code Negative *NA*(11/21/22 = U Amph Scr) 9:39 AM) [facility] Child[id number] 15:39:00 Test Item Value Reference Range Interpretation Comments U Analilia Scr (test code Positive *ABN*(11/21/22 = U Analilia Scr) 9:39 AM) [facility] ChildrenAewarjcOWQDRGAFW8252-18-28 15:39:00 Test Item Value Reference Range Interpretation Comments U Benzodiaz Scr (test Negative *NA*(11/21/22 code = U Benzodiaz Scr) 9:39 AM) [facility] ChildrenNvnrtgfILNNKXNUA0915-75-32 15:39:00 Test Item Value Reference Range Interpretation Comments U Cocaine Scr (test Negative *NA*(11/21/22 code = U Cocaine Scr) 9:39 AM) [facility] ChildrenQmntrufBTCSLBHIA8190-18-96 15:39:00 Test Item Value Reference Range Interpretation Comments U Cannab Scr (test Negative *NA*(11/21/22 code = U Cannab Scr) 9:39 AM) [facility] ChildrenBwojcmpXHEYFPMVJ9029-45-47 15:39:00 Test Item Value Reference Range Interpretation Comments U Opiate Scr (test Positive *ABN*(11/21/22 code = U Opiate Scr) 9:39 AM) [facility] ChildrenWkxqtawPVLXFJQPR7066-18-78 15:39:00 Test Item Value Reference Range Interpretation Comments U Phencyclidine Scr (test Negative code = U Phencyclidine *NA*(11/21/22 9:39 Scr) AM) [facility] ChildrenUunnkroEQSZHZXMM4817-05-83 15:39:00 Test Item Value Reference Range Interpretation Comments UDS Note (test code = See Note (11/21/22 9:39 UDS Note) AM) [facility] ChildrenannDRUG [id number] 15:39:00 Test Item Value Reference Range Interpretation Comments U Amph Scr (test code Negative *NA*(11/21/22 = U Amph Scr) 9:39 AM) [facility] ChildrenannDRUG [id number] 15:39:00 Test Item Value Reference Range Interpretation Comments U Analilia Scr (test code Positive *ABN*(11/21/22 = U Analilia Scr) 9:39 AM) [facility] ChildrenannDRUG [id number] 15:39:00 Test Item Value Reference Range Interpretation Comments U Benzodiaz Scr (test Negative *NA*(11/21/22 code = U Benzodiaz Scr) 9:39 AM) [facility] [id number] 15:39:00 Test Item Value Reference Range Interpretation Comments U Cocaine Scr (test Negative *NA*(11/21/22 code = U Cocaine Scr) 9:39 AM) [facility]annDR[facility] [id number] 15:39:00 Test Item Value Reference Range Interpretation Comments U Cannab Scr (test Negative *NA*(11/21/22 code = U Cannab Scr) 9:39 AM) [facility] [id number] 15:39:00 Test Item Value Reference Range Interpretation Comments U Opiate Scr (test Positive *ABN*(11/21/22 code = U Opiate Scr) 9:39 AM) [facility]annDR[facility] [id number] 15:39:00 Test Item Value Reference Range Interpretation Comments U Phencyclidine Scr (test Negative code = U Phencyclidine *NA*(11/21/22 9:39 Scr) AM) [facility] [id number] 15:39:00 Test Item Value Reference Range Interpretation Comments UDS Note (test code = See Note (11/21/22 9:39 UDS Note) AM) [facility] [id number] 15:39:00 Test Item Value Reference Range Interpretation Comments Coronavirus (COVID-19) Not Detected (11/21/22 JONATHAN (test code = 9:39 AM) Coronavirus (COVID-19) JONATHAN) [facility] [id number] 15:39:00 Test Item Value Reference Range Interpretation Comments Coronavirus (COVID-19) Not Detected (11/21/22 JONATHAN (test code = 9:39 AM) Coronavirus (COVID-19) JONATHAN) [facility] [id number] 15:39:00 Test Item Value Reference Range Interpretation Comments UA Color (test code = Light Yellow UA Color) *NA*(11/21/22 9:39 AM) [facility] [id number] 15:39:00 Test Item Value Reference Range Interpretation Comments UA Turbidity (test code = Clear (11/21/22 9:39 UA Turbidity) AM) [facility] [id number] 15:39:00 Test Item Value Reference Range Interpretation Comments UA Spec Grav (test code = UA Spec 1.014 1 Grav) [facility] AND [id number] 15:39:00 Test Item Value Reference Range Interpretation Comments UA pH (test code = UA pH) 6.0 1 5.0-8.0 [facility] AND [id number] 15:39:00 Test Item Value Reference Range Interpretation Comments UA Protein (test code = UA Protein) 30 mg/dL [facility] AND [id number] 15:39:00 Test Item Value Reference Range Interpretation Comments UA Glucose (test code = UA Negative mg/dL Glucose) [facility] AND [id number] 15:39:00 Test Item Value Reference Range Interpretation Comments UA Ketones (test code = UA Negative mg/dL Ketones) [facility] AND [id number] 15:39:00 Test Item Value Reference Range Interpretation Comments UA Bili (test code = Negative *NA*(11/21/22 UA Bili) 9:39 AM) [facility] AND [id number] 15:39:00 Test Item Value Reference Range Interpretation Comments UA Blood (test code = Negative (11/21/22 9:39 UA Blood) AM) [facility] AND [id number] 15:39:00 Test Item Value Reference Range Interpretation Comments UA Urobilinogen (test code = UA no gt 0.1-1.0 Urobilinogen) [facility] AND [id number] 15:39:00 Test Item Value Reference Range Interpretation Comments UA Nitrite (test code Negative (11/21/22 9:39 = UA Nitrite) AM) [facility] AND [id number] 15:39:00 Test Item Value Reference Range Interpretation Comments UA Leuk Est (test Negative (11/21/22 9:39 code = UA Leuk Est) AM) [facility] AND [id number] 15:39:00 Test Item Value Reference Range Interpretation Comments UA Sq Epi (test code = UA Sq Occasional /LPF Epi) [facility] AND [id number] 15:39:00 Test Item Value Reference Range Interpretation Comments UA WBC (test code = no gt See_Comment [Automa sheba message] The UA WBC) system which ge nerated this result transmit sheba reference range : <=5. The reference range was not used to interpr et this result as edy l/abnormal. [facility] RaulURINE AND [id number] 15:39:00 Test Item Value Reference Range Interpretation Comments UA RBC (test code = no gt See_Comment [Automa sheba message] The UA RBC) system which ge nerated this result transmit sheba reference range : <=2. The reference range was not used to interpr et this result as edy l/abnormal. [facility]URINE AND [id number] 15:39:00 Test Item Value Reference Range Interpretation Comments UA Color (test code = Light Yellow UA Color) *NA*(11/21/22 9:39 AM) [facility] [id number] 15:39:00 Test Item Value Reference Range Interpretation Comments UA Turbidity (test code = Clear (11/21/22 9:39 UA Turbidity) AM) [facility] [id number] 15:39:00 Test Item Value Reference Range Interpretation Comments UA Spec Grav (test code = UA Spec 1.014 1 Grav) [facility] AND [id number] 15:39:00 Test Item Value Reference Range Interpretation Comments UA pH (test code = UA pH) 6.0 1 5.0-8.0 [facility] [id number] 15:39:00 Test Item Value Reference Range Interpretation Comments UA Protein (test code = UA Protein) 30 mg/dL [facility] AND [id number] 15:39:00 Test Item Value Reference Range Interpretation Comments UA Glucose (test code = UA Negative mg/dL Glucose) [facility] AND [id number] 15:39:00 Test Item Value Reference Range Interpretation Comments UA Ketones (test code = UA Negative mg/dL Ketones) [facility] [id number] 15:39:00 Test Item Value Reference Range Interpretation Comments UA Bili (test code = Negative *NA*(11/21/22 UA Bili) 9:39 AM) [facility] [id number] 15:39:00 Test Item Value Reference Range Interpretation Comments UA Blood (test code = Negative (2/21/23 9:39 UA Blood) AM) [facility] AND [id number] 15:39:00 Test Item Value Reference Range Interpretation Comments UA Urobilinogen (test code = UA no gt 0.1-1.0 Urobilinogen) [facility] AND [id number] 15:39:00 Test Item Value Reference Range Interpretation Comments UA Nitrite (test code Negative (11/21/22 9:39 = UA Nitrite) AM) [facility] AND [id number] 15:39:00 Test Item Value Reference Range Interpretation Comments UA Leuk Est (test Negative (11/21/22 9:39 code = UA Leuk Est) AM) [facility] AND [id number] 15:39:00 Test Item Value Reference Range Interpretation Comments UA Sq Epi (test code = UA Sq Occasional /LPF Epi) [facility] AND [id number] 15:39:00 Test Item Value Reference Range Interpretation Comments UA WBC (test code = no gt See_Comment [Automa sheba message] The UA WBC) system which ge nerated this result transmit sheba reference range : <=5. The reference range was not used to interpr et this result as edy l/abnormal. [facility] AND [id number] 15:39:00 Test Item Value Reference Range Interpretation Comments UA RBC (test code = no gt See_Comment [Automa sheba message] The UA RBC) system which ge nerated this result transmit sheba reference range : <=2. The reference range was not used to interpr et this result as edy l/abnormal. [facility] [id number] 15:39:00 Test Item Value Reference Range Interpretation Comments U Amph Scr (test code Negative *NA*(11/21/22 = U Amph Scr) 9:39 AM) [facility] [id number] 15:39:00 Test Item Value Reference Range Interpretation Comments U Analilia Scr (test code Positive *ABN*(11/21/22 = U Analilia Scr) 9:39 AM) [facility] [id number] 15:39:00 Test Item Value Reference Range Interpretation Comments U Benzodiaz Scr (test Negative *NA*(11/21/22 code = U Benzodiaz Scr) 9:39 AM) [facility] [id number] 15:39:00 Test Item Value Reference Range Interpretation Comments U Cocaine Scr (test Negative *NA*(11/21/22 code = U Cocaine Scr) 9:39 AM) [facility] [id number] 15:39:00 Test Item Value Reference Range Interpretation Comments U Cannab Scr (test Negative *NA*(11/21/22 code = U Cannab Scr) 9:39 AM) [facility] [id number] 15:39:00 Test Item Value Reference Range Interpretation Comments U Opiate Scr (test Positive *ABN*(11/21/22 code = U Opiate Scr) 9:39 AM) [facility] [id number] 15:39:00 Test Item Value Reference Range Interpretation Comments U Phencyclidine Scr (test Negative code = U Phencyclidine *NA*(11/21/22 9:39 Scr) AM) [id number] 15:39:00 Test Item Value Reference Range Interpretation Comments UDS Note (test code = See Note (11/21/22 9:39 UDS Note) AM) [facility] [id number] 15:39:00 Test Item Value Reference Range Interpretation Comments U Amph Scr (test code Negative *NA*(11/21/22 = U Amph Scr) 9:39 AM) [facility] [id number] 15:39:00 Test Item Value Reference Range Interpretation Comments U Analilia Scr (test code Positive *ABN*(11/21/22 = U Analilia Scr) 9:39 AM) [facility] [id number] 15:39:00 Test Item Value Reference Range Interpretation Comments U Benzodiaz Scr (test Negative *NA*(11/21/22 code = U Benzodiaz Scr) 9:39 AM) [facility] [id number] 15:39:00 Test Item Value Reference Range Interpretation Comments U Cocaine Scr (test Negative *NA*(11/21/22 code = U Cocaine Scr) 9:39 AM) [facility] [id number] 15:39:00 Test Item Value Reference Range Interpretation Comments U Cannab Scr (test Negative *NA*(11/21/22 code = U Cannab Scr) 9:39 AM) [facility] [id number] 15:39:00 Test Item Value Reference Range Interpretation Comments U Opiate Scr (test Positive *ABN*(11/21/22 code = U Opiate Scr) 9:39 AM) [facility] [id number] 15:39:00 Test Item Value Reference Range Interpretation Comments U Phencyclidine Scr (test Negative code = U Phencyclidine *NA*(11/21/22 9:39 Scr) AM) [facility] [id number] 15:39:00 Test Item Value Reference Range Interpretation Comments UDS Note (test code = See Note (11/21/22 9:39 UDS Note) AM) [facility] [id number] 15:39:00 Test Item Value Reference Range Interpretation Comments Coronavirus (COVID-19) Not Detected (11/21/22 JONATHAN (test code = 9:39 AM) Coronavirus (COVID-19) JONATHAN) [facility] [id number] 15:39:00 Test Item Value Reference Range Interpretation Comments Coronavirus (COVID-19) Not Detected (11/21/22 JONATHAN (test code = 9:39 AM) Coronavirus (COVID-19) JONATHAN) [facility] [id number] 15:39:00 Test Item Value Reference Range Interpretation Comments UA Color (test code = Light Yellow UA Color) *NA*(11/21/22 9:39 AM) [facility] [id number] 15:39:00 Test Item Value Reference Range Interpretation Comments UA Turbidity (test code = Clear (11/21/22 9:39 UA Turbidity) AM) [facility] [id number] 15:39:00 Test Item Value Reference Range Interpretation Comments UA Spec Grav (test code = UA Spec 1.014 1 Grav) [facility] [id number] 15:39:00 Test Item Value Reference Range Interpretation Comments UA pH (test code = UA pH) 6.0 1 5.0-8.0 [facility] [id number] 15:39:00 Test Item Value Reference Range Interpretation Comments UA Protein (test code = UA Protein) 30 mg/dL [facility] [id number] 15:39:00 Test Item Value Reference Range Interpretation Comments UA Glucose (test code = UA Negative mg/dL Glucose) [facility] [id number] 15:39:00 Test Item Value Reference Range Interpretation Comments UA Ketones (test code = UA Negative mg/dL Ketones) [facility] AND [id number] 15:39:00 Test Item Value Reference Range Interpretation Comments UA Bili (test code = Negative *NA*(11/21/22 UA Bili) 9:39 AM) [facility] AND [id number] 15:39:00 Test Item Value Reference Range Interpretation Comments UA Blood (test code = Negative (11/21/22 9:39 UA Blood) AM) [facility] AND [id number] 15:39:00 Test Item Value Reference Range Interpretation Comments UA Urobilinogen (test code = UA no gt 0.1-1.0 Urobilinogen) [facility] AND [id number] 15:39:00 Test Item Value Reference Range Interpretation Comments UA Nitrite (test code Negative (11/21/22 9:39 = UA Nitrite) AM) [facility] AND [id number] 15:39:00 Test Item Value Reference Range Interpretation Comments UA Leuk Est (test Negative (11/21/22 9:39 code = UA Leuk Est) AM) [facility] AND [id number] 15:39:00 Test Item Value Reference Range Interpretation Comments UA Sq Epi (test code = UA Sq Occasional /LPF Epi) [facility] AND [id number] 15:39:00 Test Item Value Reference Range Interpretation Comments UA WBC (test code = no gt See_Comment [Automa sheba message] The UA WBC) system which ge nerated this result transmit sheba reference range : <=5. The reference range was not used to interpr et this result as edy l/abnormal. [facility] AND [id number] 15:39:00 Test Item Value Reference Range Interpretation Comments UA RBC (test code = no gt See_Comment [Automa sheba message] The UA RBC) system which ge nerated this result transmit sheba reference range : <=2. The reference range was not used to interpr et this result as edy l/abnormal. [facility] AND [id number] 15:39:00 Test Item Value Reference Range Interpretation Comments UA Color (test code = Light Yellow UA Color) *NA*(11/21/22 9:39 AM) [facility] AND [id number] 15:39:00 Test Item Value Reference Range Interpretation Comments UA Turbidity (test code = Clear (11/21/22 9:39 UA Turbidity) AM) [facility] AND [id number] 15:39:00 Test Item Value Reference Range Interpretation Comments UA Spec Grav (test code = UA Spec 1.014 1 Grav) [facility] AND [id number] 15:39:00 Test Item Value Reference Range Interpretation Comments UA pH (test code = UA pH) 6.0 1 5.0-8.0 [facility] AND [id number] 15:39:00 Test Item Value Reference Range Interpretation Comments UA Protein (test code = UA Protein) 30 mg/dL [facility] AND [id number] 15:39:00 Test Item Value Reference Range Interpretation Comments UA Glucose (test code = UA Negative mg/dL Glucose) [facility] AND [id number] 15:39:00 Test Item Value Reference Range Interpretation Comments UA Ketones (test code = UA Negative mg/dL Ketones) [facility] AND [id number] 15:39:00 Test Item Value Reference Range Interpretation Comments UA Bili (test code = Negative *NA*(11/21/22 UA Bili) 9:39 AM) [facility] AND [id number] 15:39:00 Test Item Value Reference Range Interpretation Comments UA Blood (test code = Negative (11/21/22 9:39 UA Blood) AM) [facility] AND [id number] 15:39:00 Test Item Value Reference Range Interpretation Comments UA Urobilinogen (test code = UA no gt 0.1-1.0 Urobilinogen) [facility] AND [id number] 15:39:00 Test Item Value Reference Range Interpretation Comments UA Nitrite (test code Negative (11/21/22 9:39 = UA Nitrite) AM) [facility] AND [id number] 15:39:00 Test Item Value Reference Range Interpretation Comments UA Leuk Est (test Negative (11/21/22 9:39 code = UA Leuk Est) AM) [facility] [id number] 15:39:00 Test Item Value Reference Range Interpretation Comments UA Sq Epi (test code = UA Sq Occasional /LPF Epi) [facility] AND [id number] 15:39:00 Test Item Value Reference Range Interpretation Comments UA WBC (test code = no gt See_Comment [Automa sheba message] The UA WBC) system which ge nerated this result transmit sheba reference range : <=5. The reference range was not used to interpr et this result as edy l/abnormal. [facility] RaulURINE AND [id number] 15:39:00 Test Item Value Reference Range Interpretation Comments UA RBC (test code = no gt See_Comment [Automa sheba message] The UA RBC) system which ge nerated this result transmit sheba reference range : <=2. The reference range was not used to interpr et this result as edy l/abnormal. [facility] [id number] 15:39:00 Test Item Value Reference Range Interpretation Comments U Amph Scr (test code Negative *NA*(11/21/22 = U Amph Scr) 9:39 AM) [facility] [id number] 15:39:00 Test Item Value Reference Range Interpretation Comments U Analilia Scr (test code Positive *ABN*(11/21/22 = U Analilia Scr) 9:39 AM) [facility] [id number] 15:39:00 Test Item Value Reference Range Interpretation Comments U Benzodiaz Scr (test Negative *NA*(11/21/22 code = U Benzodiaz Scr) 9:39 AM) [facility] [id number] 15:39:00 Test Item Value Reference Range Interpretation Comments U Cocaine Scr (test Negative *NA*(11/21/22 code = U Cocaine Scr) 9:39 AM) [facility] [id number] 15:39:00 Test Item Value Reference Range Interpretation Comments U Cannab Scr (test Negative *NA*(11/21/22 code = U Cannab Scr) 9:39 AM) [facility] [id number] 15:39:00 Test Item Value Reference Range Interpretation Comments U Opiate Scr (test Positive *ABN*(11/21/22 code = U Opiate Scr) 9:39 AM) [facility] [id number] 15:39:00 Test Item Value Reference Range Interpretation Comments U Phencyclidine Scr (test Negative code = U Phencyclidine *NA*(11/21/22 9:39 Scr) AM) [facility] [id number] 15:39:00 Test Item Value Reference Range Interpretation Comments UDS Note (test code = See Note (11/21/22 9:39 UDS Note) AM) [facility] [id number] 15:39:00 Test Item Value Reference Range Interpretation Comments U Amph Scr (test code Negative *NA*(11/21/22 = U Amph Scr) 9:39 AM) [facility] [id number] 15:39:00 Test Item Value Reference Range Interpretation Comments U Analilia Scr (test code Positive *ABN*(11/21/22 = U Analilia Scr) 9:39 AM) [facility] [id number] 15:39:00 Test Item Value Reference Range Interpretation Comments U Benzodiaz Scr (test Negative *NA*(11/21/22 code = U Benzodiaz Scr) 9:39 AM) [facility] [id number] 15:39:00 Test Item Value Reference Range Interpretation Comments U Cocaine Scr (test Negative *NA*(11/21/22 code = U Cocaine Scr) 9:39 AM) [facility] [id number] 15:39:00 Test Item Value Reference Range Interpretation Comments U Cannab Scr (test Negative *NA*(11/21/22 code = U Cannab Scr) 9:39 AM) [facility] [id number] 15:39:00 Test Item Value Reference Range Interpretation Comments U Opiate Scr (test Positive *ABN*(11/21/22 code = U Opiate Scr) 9:39 AM) [facility] [id number] 15:39:00 Test Item Value Reference Range Interpretation Comments U Phencyclidine Scr (test Negative code = U Phencyclidine *NA*(11/21/22 9:39 Scr) AM) [facility] [id number] 15:39:00 Test Item Value Reference Range Interpretation Comments UDS Note (test code = See Note (11/21/22 9:39 UDS Note) AM) [facility] [id number] 15:39:00 Test Item Value Reference Range Interpretation Comments Coronavirus (COVID-19) Not Detected (11/21/22 JONATHAN (test code = 9:39 AM) Coronavirus (COVID-19) JONATHAN) [facility] [id number] 15:39:00 Test Item Value Reference Range Interpretation Comments Coronavirus (COVID-19) Not Detected (11/21/22 JONATHAN (test code = 9:39 AM) Coronavirus (COVID-19) JONATHAN) [facility] AND [id number] 15:39:00 Test Item Value Reference Range Interpretation Comments UA Color (test code = Light Yellow UA Color) *NA*(11/21/22 9:39 AM) [facility] AND [id number] 15:39:00 Test Item Value Reference Range Interpretation Comments UA Turbidity (test code = Clear (11/21/22 9:39 UA Turbidity) AM) [facility] AND [id number] 15:39:00 Test Item Value Reference Range Interpretation Comments UA Spec Grav (test code = UA Spec 1.014 1 Grav) [facility] AND [id number] 15:39:00 Test Item Value Reference Range Interpretation Comments UA pH (test code = UA pH) 6.0 1 5.0-8.0 [facility] AND [id number] 15:39:00 Test Item Value Reference Range Interpretation Comments UA Protein (test code = UA Protein) 30 mg/dL [facility] AND [id number] 15:39:00 Test Item Value Reference Range Interpretation Comments UA Glucose (test code = UA Negative mg/dL Glucose) [facility] AND [id number] 15:39:00 Test Item Value Reference Range Interpretation Comments UA Ketones (test code = UA Negative mg/dL Ketones) [facility] [id number] 15:39:00 Test Item Value Reference Range Interpretation Comments UA Bili (test code = Negative *NA*(11/21/22 UA Bili) 9:39 AM) [facility] [id number] 15:39:00 Test Item Value Reference Range Interpretation Comments UA Blood (test code = Negative (2/21/23 9:39 UA Blood) AM) [facility] AND [id number] 15:39:00 Test Item Value Reference Range Interpretation Comments UA Urobilinogen (test code = UA no gt 0.1-1.0 Urobilinogen) [facility] AND [id number] 15:39:00 Test Item Value Reference Range Interpretation Comments UA Nitrite (test code Negative (11/21/22 9:39 = UA Nitrite) AM) [facility] [id number] 15:39:00 Test Item Value Reference Range Interpretation Comments UA Leuk Est (test Negative (11/21/22 9:39 code = UA Leuk Est) AM) [facility] AND [id number] 15:39:00 Test Item Value Reference Range Interpretation Comments UA Sq Epi (test code = UA Sq Occasional /LPF Epi) [facility] [id number] 15:39:00 Test Item Value Reference Range Interpretation Comments UA WBC (test code = no gt See_Comment [Automa sheba message] The UA WBC) system which ge nerated this result transmit sheba reference range : <=5. The reference range was not used to interpr et this result as edy l/abnormal. [facility] AND [id number] 15:39:00 Test Item Value Reference Range Interpretation Comments UA RBC (test code = no gt See_Comment [Automa sheba message] The UA RBC) system which ge nerated this result transmit sheba reference range : <=2. The reference range was not used to interpr et this result as edy l/abnormal. [facility] AND [id number] 15:39:00 Test Item Value Reference Range Interpretation Comments UA Color (test code = Light Yellow UA Color) *NA*(11/21/22 9:39 AM) [facility] AND [id number] 15:39:00 Test Item Value Reference Range Interpretation Comments UA Turbidity (test code = Clear (11/21/22 9:39 UA Turbidity) AM) [facility] [id number] 15:39:00 Test Item Value Reference Range Interpretation Comments UA Spec Grav (test code = UA Spec 1.014 1 Grav) [facility] AND [id number] 15:39:00 Test Item Value Reference Range Interpretation Comments UA pH (test code = UA pH) 6.0 1 5.0-8.0 [facility] AND [id number] 15:39:00 Test Item Value Reference Range Interpretation Comments UA Protein (test code = UA Protein) 30 mg/dL [facility] AND [id number] 15:39:00 Test Item Value Reference Range Interpretation Comments UA Glucose (test code = UA Negative mg/dL Glucose) [facility] AND [id number] 15:39:00 Test Item Value Reference Range Interpretation Comments UA Ketones (test code = UA Negative mg/dL Ketones) [facility] AND [id number] 15:39:00 Test Item Value Reference Range Interpretation Comments UA Bili (test code = Negative *NA*(11/21/22 UA Bili) 9:39 AM) [facility] AND [id number] 15:39:00 Test Item Value Reference Range Interpretation Comments UA Blood (test code = Negative (11/21/22 9:39 UA Blood) AM) [facility] AND [id number] 15:39:00 Test Item Value Reference Range Interpretation Comments UA Urobilinogen (test code = UA no gt 0.1-1.0 Urobilinogen) [facility] AND [id number] 15:39:00 Test Item Value Reference Range Interpretation Comments UA Nitrite (test code Negative (11/21/22 9:39 = UA Nitrite) AM) [facility] AND [id number] 15:39:00 Test Item Value Reference Range Interpretation Comments UA Leuk Est (test Negative (11/21/22 9:39 code = UA Leuk Est) AM) [facility] AND [id number] 15:39:00 Test Item Value Reference Range Interpretation Comments UA Sq Epi (test code = UA Sq Occasional /LPF Epi) [facility] AND [id number] 15:39:00 Test Item Value Reference Range Interpretation Comments UA WBC (test code = no gt See_Comment [Automa sheba message] The UA WBC) system which ge nerated this result transmit sheba reference range : <=5. The reference range was not used to interpr et this result as edy l/abnormal. [facility] AND [id number] 15:39:00 Test Item Value Reference Range Interpretation Comments UA RBC (test code = no gt See_Comment [Automa sheba message] The UA RBC) system which ge nerated this result transmit sheba reference range : <=2. The reference range was not used to interpr et this result as edy l/abnormal. [id number] 15:39:00 Test Item Value Reference Range Interpretation Comments U Amph Scr (test code Negative *NA*(11/21/22 = U Amph Scr) 9:39 AM) [facility] [id number] 15:39:00 Test Item Value Reference Range Interpretation Comments U Analilia Scr (test code Positive *ABN*(11/21/22 = U Analilia Scr) 9:39 AM) [id number] 15:39:00 Test Item Value Reference Range Interpretation Comments U Benzodiaz Scr (test Negative *NA*(11/21/22 code = U Benzodiaz Scr) 9:39 AM) [facility] [id number] 15:39:00 Test Item Value Reference Range Interpretation Comments U Cocaine Scr (test Negative *NA*(11/21/22 code = U Cocaine Scr) 9:39 AM) [facility] [id number] 15:39:00 Test Item Value Reference Range Interpretation Comments U Cannab Scr (test Negative *NA*(11/21/22 code = U Cannab Scr) 9:39 AM) [facility] [id number] 15:39:00 Test Item Value Reference Range Interpretation Comments U Opiate Scr (test Positive *ABN*(11/21/22 code = U Opiate Scr) 9:39 AM) [facility] [id number] 15:39:00 Test Item Value Reference Range Interpretation Comments U Phencyclidine Scr (test Negative code = U Phencyclidine *NA*(11/21/22 9:39 Scr) AM) [facility] [id number] 15:39:00 Test Item Value Reference Range Interpretation Comments UDS Note (test code = See Note (11/21/22 9:39 UDS Note) AM) [facility] [id number] 15:39:00 Test Item Value Reference Range Interpretation Comments U Amph Scr (test code Negative *NA*(11/21/22 = U Amph Scr) 9:39 AM) [facility] [id number] 15:39:00 Test Item Value Reference Range Interpretation Comments U Analilia Scr (test code Positive *ABN*(11/21/22 = U Analilia Scr) 9:39 AM) [facility] [id number] 15:39:00 Test Item Value Reference Range Interpretation Comments U Benzodiaz Scr (test Negative *NA*(11/21/22 code = U Benzodiaz Scr) 9:39 AM) [facility] [id number] 15:39:00 Test Item Value Reference Range Interpretation Comments U Cocaine Scr (test Negative *NA*(11/21/22 code = U Cocaine Scr) 9:39 AM) [facility] [id number] 15:39:00 Test Item Value Reference Range Interpretation Comments U Cannab Scr (test Negative *NA*(11/21/22 code = U Cannab Scr) 9:39 AM) [facility] [id number] 15:39:00 Test Item Value Reference Range Interpretation Comments U Opiate Scr (test Positive *ABN*(11/21/22 code = U Opiate Scr) 9:39 AM) [facility] [id number] 15:39:00 Test Item Value Reference Range Interpretation Comments U Phencyclidine Scr (test Negative code = U Phencyclidine *NA*(11/21/22 9:39 Scr) AM) [facility] [id number] 15:39:00 Test Item Value Reference Range Interpretation Comments UDS Note (test code = See Note (11/21/22 9:39 UDS Note) AM) [id number] 15:39:00 Test Item Value Reference Range Interpretation Comments Coronavirus (COVID-19) Not Detected (11/21/22 JONATHAN (test code = 9:39 AM) Coronavirus (COVID-19) JONATHAN) [facility] [id number] 15:39:00 Test Item Value Reference Range Interpretation Comments Coronavirus (COVID-19) Not Detected (11/21/22 JONATHAN (test code = 9:39 AM) Coronavirus (COVID-19) JONATHAN) [facility] [id number] 15:39:00 Test Item Value Reference Range Interpretation Comments UA Color (test code = Light Yellow UA Color) *NA*(11/21/22 9:39 AM) [facility] AND [id number] 15:39:00 Test Item Value Reference Range Interpretation Comments UA Turbidity (test code = Clear (11/21/22 9:39 UA Turbidity) AM) [facility] AND [id number] 15:39:00 Test Item Value Reference Range Interpretation Comments UA Spec Grav (test code = UA Spec 1.014 1 Grav) [facility] AND [id number] 15:39:00 Test Item Value Reference Range Interpretation Comments UA pH (test code = UA pH) 6.0 1 5.0-8.0 [facility] AND [id number] 15:39:00 Test Item Value Reference Range Interpretation Comments UA Protein (test code = UA Protein) 30 mg/dL [facility] AND [id number] 15:39:00 Test Item Value Reference Range Interpretation Comments UA Glucose (test code = UA Negative mg/dL Glucose) [facility] AND [id number] 15:39:00 Test Item Value Reference Range Interpretation Comments UA Ketones (test code = UA Negative mg/dL Ketones) [facility] AND [id number] 15:39:00 Test Item Value Reference Range Interpretation Comments UA Bili (test code = Negative *NA*(11/21/22 UA Bili) 9:39 AM) [facility] AND [id number] 15:39:00 Test Item Value Reference Range Interpretation Comments UA Blood (test code = Negative (11/21/22 9:39 UA Blood) AM) [facility] AND [id number] 15:39:00 Test Item Value Reference Range Interpretation Comments UA Urobilinogen (test code = UA no gt 0.1-1.0 Urobilinogen) [facility] AND [id number] 15:39:00 Test Item Value Reference Range Interpretation Comments UA Nitrite (test code Negative (11/21/22 9:39 = UA Nitrite) AM) [facility] AND [id number] 15:39:00 Test Item Value Reference Range Interpretation Comments UA Leuk Est (test Negative (11/21/22 9:39 code = UA Leuk Est) AM) [facility] [id number] 15:39:00 Test Item Value Reference Range Interpretation Comments UA Sq Epi (test code = UA Sq Occasional /LPF Epi) [facility] [id number] 15:39:00 Test Item Value Reference Range Interpretation Comments UA WBC (test code = no gt See_Comment [Automa sheba message] The UA WBC) system which ge nerated this result transmit sheba reference range : <=5. The reference range was not used to interpr et this result as edy l/abnormal. [facility] [place] AND [id number] 15:39:00 Test Item Value Reference Range Interpretation Comments UA RBC (test code = no gt See_Comment [Automa sheba message] The UA RBC) system which ge nerated this result transmit sheba reference range : <=2. The reference range was not used to interpr et this result as edy l/abnormal. [facility] [id number] 15:39:00 Test Item Value Reference Range Interpretation Comments UA Color (test code = Light Yellow UA Color) *NA*(11/21/22 9:39 AM) [facility] [id number] 15:39:00 Test Item Value Reference Range Interpretation Comments UA Turbidity (test code = Clear (11/21/22 9:39 UA Turbidity) AM) [facility] [id number] 15:39:00 Test Item Value Reference Range Interpretation Comments UA Spec Grav (test code = UA Spec 1.014 1 Grav) [facility] [id number] 15:39:00 Test Item Value Reference Range Interpretation Comments UA pH (test code = UA pH) 6.0 1 5.0-8.0 [facility] [id number] 15:39:00 Test Item Value Reference Range Interpretation Comments UA Protein (test code = UA Protein) 30 mg/dL [facility] [id number] 15:39:00 Test Item Value Reference Range Interpretation Comments UA Glucose (test code = UA Negative mg/dL Glucose) [facility] [id number] 15:39:00 Test Item Value Reference Range Interpretation Comments UA Ketones (test code = UA Negative mg/dL Ketones) [facility] AND [id number] 15:39:00 Test Item Value Reference Range Interpretation Comments UA Bili (test code = Negative *NA*(11/21/22 UA Bili) 9:39 AM) [facility] AND [id number] 15:39:00 Test Item Value Reference Range Interpretation Comments UA Blood (test code = Negative (11/21/22 9:39 UA Blood) AM) [facility] AND [id number] 15:39:00 Test Item Value Reference Range Interpretation Comments UA Urobilinogen (test code = UA no gt 0.1-1.0 Urobilinogen) [facility] AND [id number] 15:39:00 Test Item Value Reference Range Interpretation Comments UA Nitrite (test code Negative (11/21/22 9:39 = UA Nitrite) AM) [facility] AND [id number] 15:39:00 Test Item Value Reference Range Interpretation Comments UA Leuk Est (test Negative (11/21/22 9:39 code = UA Leuk Est) AM) [facility] AND [id number] 15:39:00 Test Item Value Reference Range Interpretation Comments UA Sq Epi (test code = UA Sq Occasional /LPF Epi) [facility] AND [id number] 15:39:00 Test Item Value Reference Range Interpretation Comments UA WBC (test code = no gt See_Comment [Automa sheba message] The UA WBC) system which ge nerated this result transmit sheba reference range : <=5. The reference range was not used to interpr et this result as edy l/abnormal. [facility] [id number] 15:39:00 Test Item Value Reference Range Interpretation Comments UA RBC (test code = no gt See_Comment [Automa sheba message] The UA RBC) system which ge nerated this result transmit sheba reference range : <=2. The reference range was not used to interpr et this result as edy l/abnormal. [facility] [id number] 15:39:00 Test Item Value Reference Range Interpretation Comments U Amph Scr (test code Negative *NA*(11/21/22 = U Amph Scr) 9:39 AM) [facility] [id number] 15:39:00 Test Item Value Reference Range Interpretation Comments U Analilia Scr (test code Positive *ABN*(11/21/22 = U Analilia Scr) 9:39 AM) [facility] [id number] 15:39:00 Test Item Value Reference Range Interpretation Comments U Benzodiaz Scr (test Negative *NA*(11/21/22 code = U Benzodiaz Scr) 9:39 AM) [facility] [id number] 15:39:00 Test Item Value Reference Range Interpretation Comments U Cocaine Scr (test Negative *NA*(11/21/22 code = U Cocaine Scr) 9:39 AM) [facility] [id number] 15:39:00 Test Item Value Reference Range Interpretation Comments U Cannab Scr (test Negative *NA*(11/21/22 code = U Cannab Scr) 9:39 AM) [facility] [id number] 15:39:00 Test Item Value Reference Range Interpretation Comments U Opiate Scr (test Positive *ABN*(11/21/22 code = U Opiate Scr) 9:39 AM) [facility] [id number] 15:39:00 Test Item Value Reference Range Interpretation Comments U Phencyclidine Scr (test Negative code = U Phencyclidine *NA*(11/21/22 9:39 Scr) AM) [facility] [id number] 15:39:00 Test Item Value Reference Range Interpretation Comments UDS Note (test code = See Note (11/21/22 9:39 UDS Note) AM) [facility] [id number] 15:39:00 Test Item Value Reference Range Interpretation Comments U Amph Scr (test code Negative *NA*(11/21/22 = U Amph Scr) 9:39 AM) [facility] [id number] 15:39:00 Test Item Value Reference Range Interpretation Comments U Analilia Scr (test code Positive *ABN*(11/21/22 = U Analilia Scr) 9:39 AM) [facility] [id number] 15:39:00 Test Item Value Reference Range Interpretation Comments U Benzodiaz Scr (test Negative *NA*(11/21/22 code = U Benzodiaz Scr) 9:39 AM) [facility] [id number] 15:39:00 Test Item Value Reference Range Interpretation Comments U Cocaine Scr (test Negative *NA*(11/21/22 code = U Cocaine Scr) 9:39 AM) [facility] [id number] 15:39:00 Test Item Value Reference Range Interpretation Comments U Cannab Scr (test Negative *NA*(11/21/22 code = U Cannab Scr) 9:39 AM) [facility] [id number] 15:39:00 Test Item Value Reference Range Interpretation Comments U Opiate Scr (test Positive *ABN*(11/21/22 code = U Opiate Scr) 9:39 AM) [facility] [id number] 15:39:00 Test Item Value Reference Range Interpretation Comments U Phencyclidine Scr (test Negative code = U Phencyclidine *NA*(11/21/22 9:39 Scr) AM) [facility] [id number] 15:39:00 Test Item Value Reference Range Interpretation Comments UDS Note (test code = See Note (11/21/22 9:39 UDS Note) AM) [facility] [id number] 15:39:00 Test Item Value Reference Range Interpretation Comments Coronavirus (COVID-19) Not Detected (11/21/22 JONATHAN (test code = 9:39 AM) Coronavirus (COVID-19) JONATHAN) [facility] [id number] 15:39:00 Test Item Value Reference Range Interpretation Comments Coronavirus (COVID-19) Not Detected (11/21/22 JONATHAN (test code = 9:39 AM) Coronavirus (COVID-19) JONATHAN) [facility] [id number] 15:39:00 Test Item Value Reference Range Interpretation Comments UA Color (test code = Light Yellow UA Color) *NA*(11/21/22 9:39 AM) [facility] [id number] 15:39:00 Test Item Value Reference Range Interpretation Comments UA Turbidity (test code = Clear (11/21/22 9:39 UA Turbidity) AM) [facility] [id number] 15:39:00 Test Item Value Reference Range Interpretation Comments UA Spec Grav (test code = UA Spec 1.014 1 Grav) [facility] [id number] 15:39:00 Test Item Value Reference Range Interpretation Comments UA pH (test code = UA pH) 6.0 1 5.0-8.0 [facility] AND [id number] 15:39:00 Test Item Value Reference Range Interpretation Comments UA Protein (test code = UA Protein) 30 mg/dL [facility] AND [id number] 15:39:00 Test Item Value Reference Range Interpretation Comments UA Glucose (test code = UA Negative mg/dL Glucose) [facility] AND [id number] 15:39:00 Test Item Value Reference Range Interpretation Comments UA Ketones (test code = UA Negative mg/dL Ketones) [facility] AND [id number] 15:39:00 Test Item Value Reference Range Interpretation Comments UA Bili (test code = Negative *NA*(11/21/22 UA Bili) 9:39 AM) [facility] AND [id number] 15:39:00 Test Item Value Reference Range Interpretation Comments UA Blood (test code = Negative (11/21/22 9:39 UA Blood) AM) [facility] AND [id number] 15:39:00 Test Item Value Reference Range Interpretation Comments UA Urobilinogen (test code = UA no gt 0.1-1.0 Urobilinogen) [facility] AND [id number] 15:39:00 Test Item Value Reference Range Interpretation Comments UA Nitrite (test code Negative (11/21/22 9:39 = UA Nitrite) AM) [facility] AND [id number] 15:39:00 Test Item Value Reference Range Interpretation Comments UA Leuk Est (test Negative (11/21/22 9:39 code = UA Leuk Est) AM) [facility] AND [id number] 15:39:00 Test Item Value Reference Range Interpretation Comments UA Sq Epi (test code = UA Sq Occasional /LPF Epi) [facility] AND [id number] 15:39:00 Test Item Value Reference Range Interpretation Comments UA WBC (test code = no gt See_Comment [Automa sheba message] The UA WBC) system which ge nerated this result transmit sheba reference range : <=5. The reference range was not used to interpr et this result as edy l/abnormal. [facility] AND [id number] 15:39:00 Test Item Value Reference Range Interpretation Comments UA RBC (test code = no gt See_Comment [Automa sheba message] The UA RBC) system which ge nerated this result transmit sheba reference range : <=2. The reference range was not used to interpr et this result as edy l/abnormal. [facility] AND [id number] 15:39:00 Test Item Value Reference Range Interpretation Comments UA Color (test code = Light Yellow UA Color) *NA*(11/21/22 9:39 AM) [facility] AND [id number] 15:39:00 Test Item Value Reference Range Interpretation Comments UA Turbidity (test code = Clear (11/21/22 9:39 UA Turbidity) AM) [facility] AND [id number] 15:39:00 Test Item Value Reference Range Interpretation Comments UA Spec Grav (test code = UA Spec 1.014 1 Grav) [facility] AND [id number] 15:39:00 Test Item Value Reference Range Interpretation Comments UA pH (test code = UA pH) 6.0 1 5.0-8.0 [facility] AND [id number] 15:39:00 Test Item Value Reference Range Interpretation Comments UA Protein (test code = UA Protein) 30 mg/dL [facility] AND [id number] 15:39:00 Test Item Value Reference Range Interpretation Comments UA Glucose (test code = UA Negative mg/dL Glucose) [facility] AND [id number] 15:39:00 Test Item Value Reference Range Interpretation Comments UA Ketones (test code = UA Negative mg/dL Ketones) [facility] AND [id number] 15:39:00 Test Item Value Reference Range Interpretation Comments UA Bili (test code = Negative *NA*(11/21/22 UA Bili) 9:39 AM) [facility] AND [id number] 15:39:00 Test Item Value Reference Range Interpretation Comments UA Blood (test code = Negative (11/21/22 9:39 UA Blood) AM) [facility] AND [id number] 15:39:00 Test Item Value Reference Range Interpretation Comments UA Urobilinogen (test code = UA no gt 0.1-1.0 Urobilinogen) [facility] AND [id number] 15:39:00 Test Item Value Reference Range Interpretation Comments UA Nitrite (test code Negative (11/21/22 9:39 = UA Nitrite) AM) [facility] AND [id number] 15:39:00 Test Item Value Reference Range Interpretation Comments UA Leuk Est (test Negative (11/21/22 9:39 code = UA Leuk Est) AM) [facility] AND [id number] 15:39:00 Test Item Value Reference Range Interpretation Comments UA Sq Epi (test code = UA Sq Occasional /LPF Epi) [facility] AND [id number] 15:39:00 Test Item Value Reference Range Interpretation Comments UA WBC (test code = no gt See_Comment [Automa sheba message] The UA WBC) system which ge nerated this result transmit sheba reference range : <=5. The reference range was not used to interpr et this result as edy l/abnormal. [facility] AND [id number] 15:39:00 Test Item Value Reference Range Interpretation Comments UA RBC (test code = no gt See_Comment [Automa sheba message] The UA RBC) system which ge nerated this result transmit sheba reference range : <=2. The reference range was not used to interpr et this result as edy l/abnormal. [facility] [id number] 15:39:00 Test Item Value Reference Range Interpretation Comments U Amph Scr (test code Negative *NA*(11/21/22 = U Amph Scr) 9:39 AM) [facility] [id number] 15:39:00 Test Item Value Reference Range Interpretation Comments U Analilia Scr (test code Positive *ABN*(11/21/22 = U Analilia Scr) 9:39 AM) [facility] [id number] 15:39:00 Test Item Value Reference Range Interpretation Comments U Benzodiaz Scr (test Negative *NA*(11/21/22 code = U Benzodiaz Scr) 9:39 AM) [facility] [id number] 15:39:00 Test Item Value Reference Range Interpretation Comments U Cocaine Scr (test Negative *NA*(11/21/22 code = U Cocaine Scr) 9:39 AM) [facility] [id number] 15:39:00 Test Item Value Reference Range Interpretation Comments U Cannab Scr (test Negative *NA*(11/21/22 code = U Cannab Scr) 9:39 AM) [facility] [id number] 15:39:00 Test Item Value Reference Range Interpretation Comments U Opiate Scr (test Positive *ABN*(11/21/22 code = U Opiate Scr) 9:39 AM) [facility] [id number] 15:39:00 Test Item Value Reference Range Interpretation Comments U Phencyclidine Scr (test Negative code = U Phencyclidine *NA*(11/21/22 9:39 Scr) AM) [facility] [id number] 15:39:00 Test Item Value Reference Range Interpretation Comments UDS Note (test code = See Note (11/21/22 9:39 UDS Note) AM) [facility] [id number] 15:39:00 Test Item Value Reference Range Interpretation Comments U Amph Scr (test code Negative *NA*(11/21/22 = U Amph Scr) 9:39 AM) [facility] [id number] 15:39:00 Test Item Value Reference Range Interpretation Comments U Analilia Scr (test code Positive *ABN*(11/21/22 = U Analilia Scr) 9:39 AM) [facility] [id number] 15:39:00 Test Item Value Reference Range Interpretation Comments U Benzodiaz Scr (test Negative *NA*(11/21/22 code = U Benzodiaz Scr) 9:39 AM) [facility] [id number] 15:39:00 Test Item Value Reference Range Interpretation Comments U Cocaine Scr (test Negative *NA*(11/21/22 code = U Cocaine Scr) 9:39 AM) [facility] [id number] 15:39:00 Test Item Value Reference Range Interpretation Comments U Cannab Scr (test Negative *NA*(11/21/22 code = U Cannab Scr) 9:39 AM) [facility] [id number] 15:39:00 Test Item Value Reference Range Interpretation Comments U Opiate Scr (test Positive *ABN*(11/21/22 code = U Opiate Scr) 9:39 AM) [facility] [id number] 15:39:00 Test Item Value Reference Range Interpretation Comments U Phencyclidine Scr (test Negative code = U Phencyclidine *NA*(11/21/22 9:39 Scr) AM) [facility] [id number] 15:39:00 Test Item Value Reference Range Interpretation Comments UDS Note (test code = See Note (11/21/22 9:39 UDS Note) AM) [facility] [id number] 15:39:00 Test Item Value Reference Range Interpretation Comments Coronavirus (COVID-19) Not Detected (11/21/22 JONATHAN (test code = 9:39 AM) Coronavirus (COVID-19) JONATHAN) [facility] [id number] 15:39:00 Test Item Value Reference Range Interpretation Comments Coronavirus (COVID-19) Not Detected (11/21/22 JONATHAN (test code = 9:39 AM) Coronavirus (COVID-19) JONATHAN) [facility] [id number] 15:39:00 Test Item Value Reference Range Interpretation Comments UA Color (test code = Light Yellow UA Color) *NA*(11/21/22 9:39 AM) [facility] [id number] 15:39:00 Test Item Value Reference Range Interpretation Comments UA Turbidity (test code = Clear (11/21/22 9:39 UA Turbidity) AM) [facility] [id number] 15:39:00 Test Item Value Reference Range Interpretation Comments UA Spec Grav (test code = UA Spec 1.014 1 Grav) [facility] [id number] 15:39:00 Test Item Value Reference Range Interpretation Comments UA pH (test code = UA pH) 6.0 1 5.0-8.0 [facility] [id number] 15:39:00 Test Item Value Reference Range Interpretation Comments UA Protein (test code = UA Protein) 30 mg/dL [facility] [id number] 15:39:00 Test Item Value Reference Range Interpretation Comments UA Glucose (test code = UA Negative mg/dL Glucose) [facility] [id number] 15:39:00 Test Item Value Reference Range Interpretation Comments UA Ketones (test code = UA Negative mg/dL Ketones) [facility] [id number] 15:39:00 Test Item Value Reference Range Interpretation Comments UA Bili (test code = Negative *NA*(11/21/22 UA Bili) 9:39 AM) [facility] [id number] 15:39:00 Test Item Value Reference Range Interpretation Comments UA Blood (test code = Negative (11/21/22 9:39 UA Blood) AM) [facility] [id number] 15:39:00 Test Item Value Reference Range Interpretation Comments UA Urobilinogen (test code = UA no gt 0.1-1.0 Urobilinogen) [facility] [id number] 15:39:00 Test Item Value Reference Range Interpretation Comments UA Nitrite (test code Negative (11/21/22 9:39 = UA Nitrite) AM) [facility] [id number] 15:39:00 Test Item Value Reference Range Interpretation Comments UA Leuk Est (test Negative (11/21/22 9:39 code = UA Leuk Est) AM) [facility] [id number] 15:39:00 Test Item Value Reference Range Interpretation Comments UA Sq Epi (test code = UA Sq Occasional /LPF Epi) [facility] [id number] 15:39:00 Test Item Value Reference Range Interpretation Comments UA WBC (test code = no gt See_Comment [Automa sheba message] The UA WBC) system which ge nerated this result transmit sheba reference range : <=5. The reference range was not used to interpr et this result as edy l/abnormal. [facility] [id number] 15:39:00 Test Item Value Reference Range Interpretation Comments UA RBC (test code = no gt See_Comment [Automa sheba message] The UA RBC) system which ge nerated this result transmit sheba reference range : <=2. The reference range was not used to interpr et this result as edy l/abnormal. [facility] [id number] 15:39:00 Test Item Value Reference Range Interpretation Comments UA Color (test code = Light Yellow UA Color) *NA*(11/21/22 9:39 AM) [facility] [id number] 15:39:00 Test Item Value Reference Range Interpretation Comments UA Turbidity (test code = Clear (11/21/22 9:39 UA Turbidity) AM) [facility] AND [id number] 15:39:00 Test Item Value Reference Range Interpretation Comments UA Spec Grav (test code = UA Spec 1.014 1 Grav) [facility] AND [id number] 15:39:00 Test Item Value Reference Range Interpretation Comments UA pH (test code = UA pH) 6.0 1 5.0-8.0 [facility] AND [id number] 15:39:00 Test Item Value Reference Range Interpretation Comments UA Protein (test code = UA Protein) 30 mg/dL [facility] AND [id number] 15:39:00 Test Item Value Reference Range Interpretation Comments UA Glucose (test code = UA Negative mg/dL Glucose) [facility] AND [id number] 15:39:00 Test Item Value Reference Range Interpretation Comments UA Ketones (test code = UA Negative mg/dL Ketones) [facility] AND [id number] 15:39:00 Test Item Value Reference Range Interpretation Comments UA Bili (test code = Negative *NA*(11/21/22 UA Bili) 9:39 AM) [facility] AND [id number] 15:39:00 Test Item Value Reference Range Interpretation Comments UA Blood (test code = Negative (11/21/22 9:39 UA Blood) AM) [facility] AND [id number] 15:39:00 Test Item Value Reference Range Interpretation Comments UA Urobilinogen (test code = UA no gt 0.1-1.0 Urobilinogen) [facility] AND [id number] 15:39:00 Test Item Value Reference Range Interpretation Comments UA Nitrite (test code Negative (11/21/22 9:39 = UA Nitrite) AM) [facility] AND [id number] 15:39:00 Test Item Value Reference Range Interpretation Comments UA Leuk Est (test Negative (11/21/22 9:39 code = UA Leuk Est) AM) [facility] AND [id number] 15:39:00 Test Item Value Reference Range Interpretation Comments UA Sq Epi (test code = UA Sq Occasional /LPF Epi) [facility] [id number] 15:39:00 Test Item Value Reference Range Interpretation Comments UA WBC (test code = no gt See_Comment [Automa sheba message] The UA WBC) system which ge nerated this result transmit sheba reference range : <=5. The reference range was not used to interpr et this result as edy l/abnormal. [facility] [id number] 15:39:00 Test Item Value Reference Range Interpretation Comments UA RBC (test code = no gt See_Comment [Automa sheba message] The UA RBC) system which ge nerated this result transmit sheba reference range : <=2. The reference range was not used to interpr et this result as edy l/abnormal. [id number] 15:39:00 Test Item Value Reference Range Interpretation Comments U Amph Scr (test code Negative *NA*(11/21/22 = U Amph Scr) 9:39 AM) [facility] [id number] 15:39:00 Test Item Value Reference Range Interpretation Comments U Analilia Scr (test code Positive *ABN*(11/21/22 = U Analilia Scr) 9:39 AM) [facility] [id number] 15:39:00 Test Item Value Reference Range Interpretation Comments U Benzodiaz Scr (test Negative *NA*(11/21/22 code = U Benzodiaz Scr) 9:39 AM) [facility] [id number] 15:39:00 Test Item Value Reference Range Interpretation Comments U Cocaine Scr (test Negative *NA*(11/21/22 code = U Cocaine Scr) 9:39 AM) [facility] [id number] 15:39:00 Test Item Value Reference Range Interpretation Comments U Cannab Scr (test Negative *NA*(11/21/22 code = U Cannab Scr) 9:39 AM) [facility] [id number] 15:39:00 Test Item Value Reference Range Interpretation Comments U Opiate Scr (test Positive *ABN*(11/21/22 code = U Opiate Scr) 9:39 AM) [facility] [id number] 15:39:00 Test Item Value Reference Range Interpretation Comments U Phencyclidine Scr (test Negative code = U Phencyclidine *NA*(11/21/22 9:39 Scr) AM) [facility] [id number] 15:39:00 Test Item Value Reference Range Interpretation Comments UDS Note (test code = See Note (11/21/22 9:39 UDS Note) AM) [facility] [id number] 15:39:00 Test Item Value Reference Range Interpretation Comments U Amph Scr (test code Negative *NA*(11/21/22 = U Amph Scr) 9:39 AM) [facility] [id number] 15:39:00 Test Item Value Reference Range Interpretation Comments U Analilia Scr (test code Positive *ABN*(11/21/22 = U Analilia Scr) 9:39 AM) [facility] [id number] 15:39:00 Test Item Value Reference Range Interpretation Comments U Benzodiaz Scr (test Negative *NA*(11/21/22 code = U Benzodiaz Scr) 9:39 AM) [facility] [id number] 15:39:00 Test Item Value Reference Range Interpretation Comments U Cocaine Scr (test Negative *NA*(11/21/22 code = U Cocaine Scr) 9:39 AM) [facility] [id number] 15:39:00 Test Item Value Reference Range Interpretation Comments U Cannab Scr (test Negative *NA*(11/21/22 code = U Cannab Scr) 9:39 AM) [facility] [id number] 15:39:00 Test Item Value Reference Range Interpretation Comments U Opiate Scr (test Positive *ABN*(11/21/22 code = U Opiate Scr) 9:39 AM) [facility] [id number] 15:39:00 Test Item Value Reference Range Interpretation Comments U Phencyclidine Scr (test Negative code = U Phencyclidine *NA*(11/21/22 9:39 Scr) AM) [facility] [id number] 15:39:00 Test Item Value Reference Range Interpretation Comments UDS Note (test code = See Note (11/21/22 9:39 UDS Note) AM) [facility] [id number] 15:39:00 Test Item Value Reference Range Interpretation Comments Coronavirus (COVID-19) Not Detected (11/21/22 JONATHAN (test code = 9:39 AM) Coronavirus (COVID-19) JONATHAN) [facility] [id number] 15:39:00 Test Item Value Reference Range Interpretation Comments Coronavirus (COVID-19) Not Detected (11/21/22 JONATHAN (test code = 9:39 AM) Coronavirus (COVID-19) JONATHAN) [facility] AND [id number] 15:39:00 Test Item Value Reference Range Interpretation Comments UA Color (test code = Light Yellow UA Color) *NA*(11/21/22 9:39 AM) [facility] AND [id number] 15:39:00 Test Item Value Reference Range Interpretation Comments UA Turbidity (test code = Clear (11/21/22 9:39 UA Turbidity) AM) [facility] AND [id number] 15:39:00 Test Item Value Reference Range Interpretation Comments UA Spec Grav (test code = UA Spec 1.014 1 Grav) [facility] AND [id number] 15:39:00 Test Item Value Reference Range Interpretation Comments UA pH (test code = UA pH) 6.0 1 5.0-8.0 [facility] AND [id number] 15:39:00 Test Item Value Reference Range Interpretation Comments UA Protein (test code = UA Protein) 30 mg/dL [facility] AND [id number] 15:39:00 Test Item Value Reference Range Interpretation Comments UA Glucose (test code = UA Negative mg/dL Glucose) [facility] AND [id number] 15:39:00 Test Item Value Reference Range Interpretation Comments UA Ketones (test code = UA Negative mg/dL Ketones) [facility] AND [id number] 15:39:00 Test Item Value Reference Range Interpretation Comments UA Bili (test code = Negative *NA*(11/21/22 UA Bili) 9:39 AM) [facility] AND [id number] 15:39:00 Test Item Value Reference Range Interpretation Comments UA Blood (test code = Negative (11/21/22 9:39 UA Blood) AM) [facility] AND [id number] 15:39:00 Test Item Value Reference Range Interpretation Comments UA Urobilinogen (test code = UA no gt 0.1-1.0 Urobilinogen) [facility] AND [id number] 15:39:00 Test Item Value Reference Range Interpretation Comments UA Nitrite (test code Negative (11/21/22 9:39 = UA Nitrite) AM) [facility] AND [id number] 15:39:00 Test Item Value Reference Range Interpretation Comments UA Leuk Est (test Negative (11/21/22 9:39 code = UA Leuk Est) AM) [facility] AND [id number] 15:39:00 Test Item Value Reference Range Interpretation Comments UA Sq Epi (test code = UA Sq Occasional /LPF Epi) [facility] [id number] 15:39:00 Test Item Value Reference Range Interpretation Comments UA WBC (test code = no gt See_Comment [Automa sheba message] The UA WBC) system which ge nerated this result transmit sheba reference range : <=5. The reference range was not used to interpr et this result as edy l/abnormal. [facility] AND [id number] 15:39:00 Test Item Value Reference Range Interpretation Comments UA RBC (test code = no gt See_Comment [Automa sheba message] The UA RBC) system which ge nerated this result transmit sheba reference range : <=2. The reference range was not used to interpr et this result as edy l/abnormal. [facility] AND [id number] 15:39:00 Test Item Value Reference Range Interpretation Comments UA Color (test code = Light Yellow UA Color) *NA*(11/21/22 9:39 AM) [facility] AND [id number] 15:39:00 Test Item Value Reference Range Interpretation Comments UA Turbidity (test code = Clear (11/21/22 9:39 UA Turbidity) AM) [facility] [id number] 15:39:00 Test Item Value Reference Range Interpretation Comments UA Spec Grav (test code = UA Spec 1.014 1 Grav) [facility] [id number] 15:39:00 Test Item Value Reference Range Interpretation Comments UA pH (test code = UA pH) 6.0 1 5.0-8.0 [facility] AND [id number] 15:39:00 Test Item Value Reference Range Interpretation Comments UA Protein (test code = UA Protein) 30 mg/dL [facility] AND [id number] 15:39:00 Test Item Value Reference Range Interpretation Comments UA Glucose (test code = UA Negative mg/dL Glucose) [facility] AND [id number] 15:39:00 Test Item Value Reference Range Interpretation Comments UA Ketones (test code = UA Negative mg/dL Ketones) [facility] AND [id number] 15:39:00 Test Item Value Reference Range Interpretation Comments UA Bili (test code = Negative *NA*(11/21/22 UA Bili) 9:39 AM) [facility] AND [id number] 15:39:00 Test Item Value Reference Range Interpretation Comments UA Blood (test code = Negative (11/21/22 9:39 UA Blood) AM) [facility] AND [id number] 15:39:00 Test Item Value Reference Range Interpretation Comments UA Urobilinogen (test code = UA no gt 0.1-1.0 Urobilinogen) [facility] AND [id number] 15:39:00 Test Item Value Reference Range Interpretation Comments UA Nitrite (test code Negative (11/21/22 9:39 = UA Nitrite) AM) [facility] AND [id number] 15:39:00 Test Item Value Reference Range Interpretation Comments UA Leuk Est (test Negative (11/21/22 9:39 code = UA Leuk Est) AM) [facility] AND [id number] 15:39:00 Test Item Value Reference Range Interpretation Comments UA Sq Epi (test code = UA Sq Occasional /LPF Epi) [facility] AND [id number] 15:39:00 Test Item Value Reference Range Interpretation Comments UA WBC (test code = no gt See_Comment [Automa sheba message] The UA WBC) system which ge nerated this result transmit sheba reference range : <=5. The reference range was not used to interpr et this result as edy l/abnormal. [facility] AND [id number] 15:39:00 Test Item Value Reference Range Interpretation Comments UA RBC (test code = no gt See_Comment [Automa sheba message] The UA RBC) system which ge nerated this result transmit sheba reference range : <=2. The reference range was not used to interpr et this result as edy l/abnormal. [facility] [id number] 15:39:00 Test Item Value Reference Range Interpretation Comments U Amph Scr (test code Negative *NA*(11/21/22 = U Amph Scr) 9:39 AM) [id number] 15:39:00 Test Item Value Reference Range Interpretation Comments U Analilia Scr (test code Positive *ABN*(11/21/22 = U Analilia Scr) 9:39 AM) [facility] [id number] 15:39:00 Test Item Value Reference Range Interpretation Comments U Benzodiaz Scr (test Negative *NA*(11/21/22 code = U Benzodiaz Scr) 9:39 AM) [facility] [id number] 15:39:00 Test Item Value Reference Range Interpretation Comments U Cocaine Scr (test Negative *NA*(11/21/22 code = U Cocaine Scr) 9:39 AM) [facility] [id number] 15:39:00 Test Item Value Reference Range Interpretation Comments U Cannab Scr (test Negative *NA*(11/21/22 code = U Cannab Scr) 9:39 AM) [facility] [id number] 15:39:00 Test Item Value Reference Range Interpretation Comments U Opiate Scr (test Positive *ABN*(11/21/22 code = U Opiate Scr) 9:39 AM) [facility] [id number] 15:39:00 Test Item Value Reference Range Interpretation Comments U Phencyclidine Scr (test Negative code = U Phencyclidine *NA*(11/21/22 9:39 Scr) AM) [facility] [id number] 15:39:00 Test Item Value Reference Range Interpretation Comments UDS Note (test code = See Note (11/21/22 9:39 UDS Note) AM) [facility] [id number] 15:39:00 Test Item Value Reference Range Interpretation Comments U Amph Scr (test code Negative *NA*(11/21/22 = U Amph Scr) 9:39 AM) [facility]annDR[facility] [id number] 15:39:00 Test Item Value Reference Range Interpretation Comments U Analilia Scr (test code Positive *ABN*(11/21/22 = U Analilia Scr) 9:39 AM) [facility] [id number] 15:39:00 Test Item Value Reference Range Interpretation Comments U Benzodiaz Scr (test Negative *NA*(11/21/22 code = U Benzodiaz Scr) 9:39 AM) [facility] [id number] 15:39:00 Test Item Value Reference Range Interpretation Comments U Cocaine Scr (test Negative *NA*(11/21/22 code = U Cocaine Scr) 9:39 AM) [facility] [id number] 15:39:00 Test Item Value Reference Range Interpretation Comments U Cannab Scr (test Negative *NA*(11/21/22 code = U Cannab Scr) 9:39 AM) [facility] [id number] 15:39:00 Test Item Value Reference Range Interpretation Comments U Opiate Scr (test Positive *ABN*(11/21/22 code = U Opiate Scr) 9:39 AM) [facility] [id number] 15:39:00 Test Item Value Reference Range Interpretation Comments U Phencyclidine Scr (test Negative code = U Phencyclidine *NA*(11/21/22 9:39 Scr) AM) [facility] [id number] 15:39:00 Test Item Value Reference Range Interpretation Comments UDS Note (test code = See Note (11/21/22 9:39 UDS Note) AM) [facility] [id number] 15:39:00 Test Item Value Reference Range Interpretation Comments Coronavirus (COVID-19) Not Detected (11/21/22 JONATHAN (test code = 9:39 AM) Coronavirus (COVID-19) JONATHAN) [facility] [id number] 15:39:00 Test Item Value Reference Range Interpretation Comments Coronavirus (COVID-19) Not Detected (11/21/22 JONATHAN (test code = 9:39 AM) Coronavirus (COVID-19) JONATHAN) [facility] [id number] 15:39:00 Test Item Value Reference Range Interpretation Comments UA Color (test code = Light Yellow UA Color) *NA*(11/21/22 9:39 AM) [facility] [id number] 15:39:00 Test Item Value Reference Range Interpretation Comments UA Turbidity (test code = Clear (11/21/22 9:39 UA Turbidity) AM) [facility] AND [id number] 15:39:00 Test Item Value Reference Range Interpretation Comments UA Spec Grav (test code = UA Spec 1.014 1 Grav) [facility] AND [id number] 15:39:00 Test Item Value Reference Range Interpretation Comments UA pH (test code = UA pH) 6.0 1 5.0-8.0 [facility] AND [id number] 15:39:00 Test Item Value Reference Range Interpretation Comments UA Protein (test code = UA Protein) 30 mg/dL [facility] AND [id number] 15:39:00 Test Item Value Reference Range Interpretation Comments UA Glucose (test code = UA Negative mg/dL Glucose) [facility] AND [id number] 15:39:00 Test Item Value Reference Range Interpretation Comments UA Ketones (test code = UA Negative mg/dL Ketones) [facility] AND [id number] 15:39:00 Test Item Value Reference Range Interpretation Comments UA Bili (test code = Negative *NA*(11/21/22 UA Bili) 9:39 AM) [facility] AND [id number] 15:39:00 Test Item Value Reference Range Interpretation Comments UA Blood (test code = Negative (11/21/22 9:39 UA Blood) AM) [facility] AND [id number] 15:39:00 Test Item Value Reference Range Interpretation Comments UA Urobilinogen (test code = UA no gt 0.1-1.0 Urobilinogen) [facility] AND [id number] 15:39:00 Test Item Value Reference Range Interpretation Comments UA Nitrite (test code Negative (11/21/22 9:39 = UA Nitrite) AM) [facility] AND [id number] 15:39:00 Test Item Value Reference Range Interpretation Comments UA Leuk Est (test Negative (11/21/22 9:39 code = UA Leuk Est) AM) [facility] AND [id number] 15:39:00 Test Item Value Reference Range Interpretation Comments UA Sq Epi (test code = UA Sq Occasional /LPF Epi) [facility] AND [id number] 15:39:00 Test Item Value Reference Range Interpretation Comments UA WBC (test code = no gt See_Comment [Automa sheba message] The UA WBC) system which ge nerated this result transmit sheba reference range : <=5. The reference range was not used to interpr et this result as edy l/abnormal. [facility] [id number] 15:39:00 Test Item Value Reference Range Interpretation Comments UA RBC (test code = no gt See_Comment [Automa sheba message] The UA RBC) system which ge nerated this result transmit sheba reference range : <=2. The reference range was not used to interpr et this result as edy l/abnormal. [facility] [id number] 15:39:00 Test Item Value Reference Range Interpretation Comments UA Color (test code = Light Yellow UA Color) *NA*(11/21/22 9:39 AM) [facility] AND [id number] 15:39:00 Test Item Value Reference Range Interpretation Comments UA Turbidity (test code = Clear (11/21/22 9:39 UA Turbidity) AM) [facility] AND [id number] 15:39:00 Test Item Value Reference Range Interpretation Comments UA Spec Grav (test code = UA Spec 1.014 1 Grav) [facility] AND [id number] 15:39:00 Test Item Value Reference Range Interpretation Comments UA pH (test code = UA pH) 6.0 1 5.0-8.0 [facility] AND [id number] 15:39:00 Test Item Value Reference Range Interpretation Comments UA Protein (test code = UA Protein) 30 mg/dL [facility] AND [id number] 15:39:00 Test Item Value Reference Range Interpretation Comments UA Glucose (test code = UA Negative mg/dL Glucose) [facility] AND [id number] 15:39:00 Test Item Value Reference Range Interpretation Comments UA Ketones (test code = UA Negative mg/dL Ketones) [facility] AND [id number] 15:39:00 Test Item Value Reference Range Interpretation Comments UA Bili (test code = Negative *NA*(11/21/22 UA Bili) 9:39 AM) [facility] [id number] 15:39:00 Test Item Value Reference Range Interpretation Comments UA Blood (test code = Negative (11/21/22 9:39 UA Blood) AM) [facility] AND [id number] 15:39:00 Test Item Value Reference Range Interpretation Comments UA Urobilinogen (test code = UA no gt 0.1-1.0 Urobilinogen) [facility] AND [id number] 15:39:00 Test Item Value Reference Range Interpretation Comments UA Nitrite (test code Negative (11/21/22 9:39 = UA Nitrite) AM) [facility] AND [id number] 15:39:00 Test Item Value Reference Range Interpretation Comments UA Leuk Est (test Negative (11/21/22 9:39 code = UA Leuk Est) AM) [facility] AND [id number] 15:39:00 Test Item Value Reference Range Interpretation Comments UA Sq Epi (test code = UA Sq Occasional /LPF Epi) [facility] AND [id number] 15:39:00 Test Item Value Reference Range Interpretation Comments UA WBC (test code = no gt See_Comment [Automa sheba message] The UA WBC) system which ge nerated this result transmit sheba reference range : <=5. The reference range was not used to interpr et this result as edy l/abnormal. [facility] [id number] 15:39:00 Test Item Value Reference Range Interpretation Comments UA RBC (test code = no gt See_Comment [Automa sheba message] The UA RBC) system which ge nerated this result transmit sheba reference range : <=2. The reference range was not used to interpr et this result as edy l/abnormal. [facility] [id number] 12:50:00 Test Item Value Reference Range Interpretation Comments ABO/Rh (test code = ABO/Rh) O POS [facility] [id number] 12:50:00 Test Item Value Reference Range Interpretation Comments Antibody Scrn (test Negative (11/21/22 6:50 code = Antibody Scrn) AM) [facility]udaDwpvzxwDGRGKPOVD2282-98-02 12:50:00 Test Item Value Reference Range Interpretation Comments Ethanol Lvl (test code = Ethanol Lvl) no gt [facility] CenterWpjaqctYCZIUEICX1369-13-55 12:50:00 Test Item Value Reference Range Interpretation Comments Etoh (%) (test code = Etoh (%)) no gt [facility] CenterDbcyhhqREAVHPRIU8429-66-78 12:50:00 Test Item Value Reference Range Interpretation Comments Lactic Acid Lvl (test code = Lactic 0.7 0.5-2.2 Acid Lvl) [place] 408583-02-21 12:50:00 Test Item Value Reference Range Interpretation Comments Total Protein (test code = Total 6.1 6.4-8.4 Protein) [facility] CenterIrjdwksKPQZBZHIE7189-64-26 12:50:00 Test Item Value Reference Range Interpretation Comments Albumin Lvl (test code = Albumin Lvl) 2.9 3.5-5.0 [place] 408583-02-21 12:50:00 Test Item Value Reference Range Interpretation Comments Globulin (test code = Globulin) 3.2 2.7-4.2 [place] [address]-02-21 12:50:00 Test Item Value Reference Range Interpretation Comments A/G Ratio (test code = A/G Ratio) 0.9 1 0.7-1.6 [place] [address]-02-21 12:50:00 Test Item Value Reference Range Interpretation Comments ALT (test code = ALT) 16 See_Comment [Auto mated message] The system which ge nerated this result transmit sheba reference range : <=65. The reference range was not used to interpr et this result as edy l/abnormal. [facility] CenterXngvgtaIYCFIKTSS5168-68-96 12:50:00 Test Item Value Reference Range Interpretation Comments AST (test code = AST) 15 See_Comment [Auto mated message] The system which ge nerated this result transmit sheba reference range : <=37. The reference range was not used to interpr et this result as edy l/abnormal. [place] 408583-02-21 12:50:00 Test Item Value Reference Range Interpretation Comments Alk Phos (test code = Alk Phos) 96 39-136 [place] 408583-02-21 12:50:00 Test Item Value Reference Range Interpretation Comments Bili Total (test code = Bili Total) 0.2 0.2-1.3 [place] 408583-02-21 12:50:00 Test Item Value Reference Range Interpretation Comments Bili Direct (test code no gt See_Comment [Aut omated message] The = Bili Direct) system which generated this result tra nsmitted reference range : <=0.3. The reference r christiano was not used to int erpret this result as edy l/abnormal. [facility] CenterVrziqjiLZLAHUBDC0990-58-69 12:50:00 Test Item Value Reference Range Interpretation Comments Bili Indirect Unable to See_Comment [Automated (test code = Bili Calculate message] T he system Indirect) which generated this result transmitted reference range : <=1.0. The reference range was not used to interpret this result as normal/abnormal . [facility] CenterHnnkjiqJMFSASGXQ6259-49-92 12:50:00 Test Item Value Reference Range Interpretation Comments HS Troponin I (test code = HS Troponin 15 I) [facility] CenterVamdakxSPLJKPZYL7296-54-53 12:50:00 Test Item Value Reference Range Interpretation Comments pH Justin (test code = pH Justin) 7.35 1 7.28-7.42 [facility] CenterBjjfkiwVAAWRAKYB1796-88-85 12:50:00 Test Item Value Reference Range Interpretation Comments pCO2 Justin (test code = pCO2 Justin) 55 38-52 [facility] CenterXgpmwqqJIWUADSAU7017-16-73 12:50:00 Test Item Value Reference Range Interpretation Comments pO2 Justin (test code = pO2 Justin) 43 20-49 [place] 408583-02-21 12:50:00 Test Item Value Reference Range Interpretation Comments HCO3 Justin (test code = HCO3 Justin) 30 22-26 [place] 408583-02-21 12:50:00 Test Item Value Reference Range Interpretation Comments BE Justin (test code = BE Jusitn) 3 -2-2 [facility] CenterAewbevpOPLKDZDEY1246-89-46 12:50:00 Test Item Value Reference Range Interpretation Comments O2 Sat Justin (calc) (test code = O2 Sat 75.9 40.0-70.0 Justin (calc)) [facility] CenterRlekahyGRJVGLHYU3058-40-99 12:50:00 Test Item Value Reference Range Interpretation Comments Temp Justin (test code = Temp Justin) 37.0 [facility]CkezyttAQYKTNNORN8151-11-32 12:50:00 Test Item Value Reference Range Interpretation Comments ACT (TEG) Rapid (test code = ACT (TEG) 113 s 86-118 Rapid) [facility] HospitalVvphaahLWPDYMHQSC7129-67-60 12:50:00 Test Item Value Reference Range Interpretation Comments Split Point Rapid (test code = Split 0.6 min Point Rapid) [facility] HospitalRfckqlyHBCNLINBFK4819-64-54 12:50:00 Test Item Value Reference Range Interpretation Comments R-time Rapid (test code = R-time 0.7 min 0.4-0.7 Rapid) [facility] HospitalMcqdrvvVDLZYQFAHP6445-59-79 12:50:00 Test Item Value Reference Range Interpretation Comments K-time Rapid (test code = K-time 1.1 min 0.6-2.3 Rapid) [facility] HospitalPbufjzxBXAYBCDIOS1798-07-95 12:50:00 Test Item Value Reference Range Interpretation Comments Angle Rapid (test code = Angle 78 degrees 64-80 Rapid) [facility] HospitalKjifytnYWQDFBUVVQ0412-01-51 12:50:00 Test Item Value Reference Range Interpretation Comments Max Amplitude Rapid (test code = Max 65 mm 52-71 Amplitude Rapid) [facility] HospitalZodizsdVQQFHBMPTZ1391-90-27 12:50:00 Test Item Value Reference Range Interpretation Comments G-value Rapid (test code = G-value 9.2 5.0-11.6 Rapid) [facility] HospitalZithovnGTQGVIRUHM8357-14-74 12:50:00 Test Item Value Reference Range Interpretation Comments Estimated % Lysis Rapid 0.0 See_Comment [Au tomated message] The (test code = Estimated syste m which generated % Lysis Rapid) this result t ransmitted reference range : <=7.5. The reference r christiano was not used to int erpret this result as normal/abnormal . [facility] HospitalWjqucdqBLMAMRDPQA8424-25-44 12:50:00 Test Item Value Reference Range Interpretation Comments Plt Morph (test code = See Note 1(11/21/22 Plt Morph) 6:50 AM) [facility] HospitalVkzuvpuFVRJHGPBNQ3388-95-75 12:50:00 Test Item Value Reference Range Interpretation Comments Stomatocyte (test code = Stomatocyte) slight [facility] UIHFUDX4322-22-61 12:50:00 Test Item Value Reference Range Interpretation Comments ABO/Rh (test code = ABO/Rh) O POS [facility] [employer] IPTZYQN1356-28-83 12:50:00 Test Item Value Reference Range Interpretation Comments Antibody Scrn (test Negative (11/21/22 6:50 code = Antibody Scrn) AM) [facility] CenterMoupdmvZEWBUZJBD4370-82-79 12:50:00 Test Item Value Reference Range Interpretation Comments Ethanol Lvl (test code = Ethanol Lvl) no gt [facility] CenterDqqyqfcHLEQLVDVJ9883-72-78 12:50:00 Test Item Value Reference Range Interpretation Comments Etoh (%) (test code = Etoh (%)) no gt [facility] CenterEchtrjoWXYGVKJRG0714-78-73 12:50:00 Test Item Value Reference Range Interpretation Comments Lactic Acid Lvl (test code = Lactic 0.7 0.5-2.2 Acid Lvl) [facility] CenterTwblzkvRZUYOSABO8545-07-20 12:50:00 Test Item Value Reference Range Interpretation Comments Total Protein (test code = Total 6.1 6.4-8.4 Protein) [facility] CenterEzvihvoKTJPBTKXN1546-89-82 12:50:00 Test Item Value Reference Range Interpretation Comments Albumin Lvl (test code = Albumin Lvl) 2.9 3.5-5.0 [place] 408583-02-21 12:50:00 Test Item Value Reference Range Interpretation Comments Globulin (test code = Globulin) 3.2 2.7-4.2 [facility] CenterMcqqnrgTORQZAMLB5724-22-26 12:50:00 Test Item Value Reference Range Interpretation Comments A/G Ratio (test code = A/G Ratio) 0.9 1 0.7-1.6 [facility] CenterQbttexmMOMPDJFLK2874-27-33 12:50:00 Test Item Value Reference Range Interpretation Comments ALT (test code = ALT) 16 See_Comment [Auto mated message] The system which nerated this result transmit sheba reference range : <=65. The reference range was not used to interpr et this result as edy l/abnormal. [facility] CenterSfwbfogZGIPHTBTI5579-86-34 12:50:00 Test Item Value Reference Range Interpretation Comments AST (test code = AST) 15 See_Comment [Auto mated message] The system which nerated this result transmit sheba reference range : <=37. The reference range was not used to interpr et this result as edy l/abnormal. [facility] CenterZfmhcpkZSNAZUSLQ1663-39-84 12:50:00 Test Item Value Reference Range Interpretation Comments Alk Phos (test code = Alk Phos) 96 39-136 [facility] CenterMdhyahgNPPUOABWG3368-78-83 12:50:00 Test Item Value Reference Range Interpretation Comments Bili Total (test code = Bili Total) 0.2 0.2-1.3 [place] 408583-02-21 12:50:00 Test Item Value Reference Range Interpretation Comments Bili Direct (test code no gt See_Comment [Aut omated message] The = Bili Direct) system which generated this result tra nsmitted reference range : <=0.3. The reference r christiano was not used to int erpret this result as edy l/abnormal. [facility] CenterBsxidyePQDNKXZWK1800-38-17 12:50:00 Test Item Value Reference Range Interpretation Comments Bili Indirect Unable to See_Comment [Automated (test code = Bili Calculate message] T he system Indirect) which generated this result transmitted reference range : <=1.0. The reference range was not used to interpret this result as normal/abnormal . [facility] CenterYopycskHEANXQMXN6258-62-33 12:50:00 Test Item Value Reference Range Interpretation Comments HS Troponin I (test code = HS Troponin 15 I) [facility] CenterWshnvsmUGYUWTUFT3945-61-80 12:50:00 Test Item Value Reference Range Interpretation Comments pH Justin (test code = pH Justin) 7.35 1 7.28-7.42 [facility] CenterQgvtrhnSQVEMTRXM8911-94-51 12:50:00 Test Item Value Reference Range Interpretation Comments pCO2 Justin (test code = pCO2 Justin) 55 38-52 [place] 408583-02-21 12:50:00 Test Item Value Reference Range Interpretation Comments pO2 Justin (test code = pO2 Justin) 43 20-49 [place] 408583-02-21 12:50:00 Test Item Value Reference Range Interpretation Comments HCO3 Justin (test code = HCO3 Justin) 30 22-26 [place] 408583-02-21 12:50:00 Test Item Value Reference Range Interpretation Comments BE Justin (test code = BE Justin) 3 -2-2 [facility] CenterEnqdzopLNNBKWSGH5575-89-12 12:50:00 Test Item Value Reference Range Interpretation Comments O2 Sat Justin (calc) (test code = O2 Sat 75.9 40.0-70.0 Justin (calc)) [facility] CenterIazypwxMAUVIPSDH4707-53-97 12:50:00 Test Item Value Reference Range Interpretation Comments Temp Justin (test code = Temp Justin) 37.0 [facility] HospitalUhrmbydTDWZKGXMOO5475-44-66 12:50:00 Test Item Value Reference Range Interpretation Comments ACT (TEG) Rapid (test code = ACT (TEG) 113 s 86-118 Rapid) [facility] HospitalLeokrciTSGJFVWPLF0488-76-53 12:50:00 Test Item Value Reference Range Interpretation Comments Split Point Rapid (test code = Split 0.6 min Point Rapid) [facility] HospitalHewrknxJOBSHXQGEN6973-39-95 12:50:00 Test Item Value Reference Range Interpretation Comments R-time Rapid (test code = R-time 0.7 min 0.4-0.7 Rapid) [facility] HospitalFxybosbRABWTFLIWI7867-66-72 12:50:00 Test Item Value Reference Range Interpretation Comments K-time Rapid (test code = K-time 1.1 min 0.6-2.3 Rapid) [facility] HospitalFrjiafhLVFIVOLCRW7219-05-97 12:50:00 Test Item Value Reference Range Interpretation Comments Angle Rapid (test code = Angle 78 degrees 64-80 Rapid) [facility] HospitalPppvesfLCGFUOMGMQ2981-20-21 12:50:00 Test Item Value Reference Range Interpretation Comments Max Amplitude Rapid (test code = Max 65 mm 52-71 Amplitude Rapid) [facility] HospitalZeovwtcHFVUYLKDUE7013-40-98 12:50:00 Test Item Value Reference Range Interpretation Comments G-value Rapid (test code = G-value 9.2 5.0-11.6 Rapid) [facility] HospitalWmycputEUUWQIRHSY2515-66-75 12:50:00 Test Item Value Reference Range Interpretation Comments Estimated % Lysis Rapid 0.0 See_Comment [Au tomated message] The (test code = Estimated syste m which generated % Lysis Rapid) this result t ransmitted reference range : <=7.5. The reference r christiano was not used to int erpret this result as normal/abnormal . [facility] HospitalGczmraxCHQQLBVGTR8225-77-37 12:50:00 Test Item Value Reference Range Interpretation Comments Plt Morph (test code = See Note 1(11/21/22 Plt Morph) 6:50 AM) [facility] HospitalCbkncbvEVJCVWIOAK0558-84-71 12:50:00 Test Item Value Reference Range Interpretation Comments Stomatocyte (test code = Stomatocyte) slight [facility] NDMQVGP5227-03-02 12:50:00 Test Item Value Reference Range Interpretation Comments ABO/Rh (test code = ABO/Rh) O POS [facility] [employer] [id number] 12:50:00 Test Item Value Reference Range Interpretation Comments Antibody Scrn (test Negative (11/21/22 6:50 code = Antibody Scrn) AM) [facility] ChildrenThinkHR LTWGEZZ6745-24-27 12:50:00 Test Item Value Reference Range Interpretation Comments ABO/Rh (test code = ABO/Rh) O POS [facility] [employer] [id number] 12:50:00 Test Item Value Reference Range Interpretation Comments Antibody Scrn (test Negative (11/21/22 6:50 code = Antibody Scrn) AM) [facility] YlopoCARDIAC UOBPNUX9430-54-05 12:50:00 Test Item Value Reference Range Interpretation Comments HS Troponin I (test code = HS Troponin 15 I) [facility] [employer] [id number] 12:50:00 Test Item Value Reference Range Interpretation Comments Glucose Lvl (test code = Glucose Lvl) 99 70-99 [facility] [employer] YBUXL1479-01-05 12:50:00 Test Item Value Reference Range Interpretation Comments BUN (test code = BUN) 38 7-22 [facility] Echovox2023-02-21 12:50:00 Test Item Value Reference Range Interpretation Comments Creatinine Lvl (test code = Creatinine 2.38 0.50-1.40 Lvl) [facility] [employer] HIQBW6989-30-91 12:50:00 Test Item Value Reference Range Interpretation Comments Sodium Lvl (test code = Sodium Lvl) 140 135-145 [facility] [employer] [id number] 12:50:00 Test Item Value Reference Range Interpretation Comments Potassium Lvl (test code = Potassium 3.9 3.5-5.1 Lvl) [facility] [employer] [id number] 12:50:00 Test Item Value Reference Range Interpretation Comments Chloride Lvl (test code = Chloride Lvl) 107 95-109 [facility] [employer] [id number] 12:50:00 Test Item Value Reference Range Interpretation Comments CO2 (test code = CO2) 27 24-32 [facility] [employer] [id number] 12:50:00 Test Item Value Reference Range Interpretation Comments Calcium Lvl (test code = Calcium Lvl) 8.1 8.5-10.5 [place] 570323-02-21 12:50:00 Test Item Value Reference Range Interpretation Comments AGAP (test code = AGAP) 9.9 10.0-20.0 [place] 570323-02-21 12:50:00 Test Item Value Reference Range Interpretation Comments eGFR (test code = eGFR) 20 [place] 570323-02-21 12:50:00 Test Item Value Reference Range Interpretation Comments Lactic Acid Lvl (test code = Lactic 0.7 0.5-2.2 Acid Lvl) [place] 570323-02-21 12:50:00 Test Item Value Reference Range Interpretation Comments Total Protein (test code = Total 6.1 6.4-8.4 Protein) [place] 570323-02-21 12:50:00 Test Item Value Reference Range Interpretation Comments Albumin Lvl (test code = Albumin Lvl) 2.9 3.5-5.0 [place] 570323-02-21 12:50:00 Test Item Value Reference Range Interpretation Comments Globulin (test code = Globulin) 3.2 2.7-4.2 [place] 570323-02-21 12:50:00 Test Item Value Reference Range Interpretation Comments A/G Ratio (test code = A/G Ratio) 0.9 1 0.7-1.6 [place] 570323-02-21 12:50:00 Test Item Value Reference Range Interpretation Comments ALT (test code = ALT) 16 See_Comment [Auto mated message] The system which ge nerated this result transmit sheba reference range : <=65. The reference range was not used to interpr et this result as edy l/abnormal. [place] 570323-02-21 12:50:00 Test Item Value Reference Range Interpretation Comments AST (test code = AST) 15 See_Comment [Auto mated message] The system which ge nerated this result transmit sheba reference range : <=37. The reference range was not used to interpr et this result as edy l/abnormal. [place] 570323-02-21 12:50:00 Test Item Value Reference Range Interpretation Comments Alk Phos (test code = Alk Phos) 96 39-136 [facility]udaPayDiv[facility] BRXLQ8076-57-14 12:50:00 Test Item Value Reference Range Interpretation Comments Bili Total (test code = Bili Total) 0.2 0.2-1.3 [place] 570323-02-21 12:50:00 Test Item Value Reference Range Interpretation Comments Bili Direct (test code no gt See_Comment [Aut omated message] The = Bili Direct) system which generated this result tra nsmitted reference range : <=0.3. The reference r christiano was not used to int erpret this result as edy l/abnormal. [facility]2023-02-21 12:50:00 Test Item Value Reference Range Interpretation Comments Bili Indirect Unable to See_Comment [Automated (test code = Bili Calculate message] T he system Indirect) which generated this result transmitted reference range : <=1.0. The reference range was not used to interpret this result as normal/abnormal . [facility] CenterZebjqaqEXPNWCATC2516-15-32 12:50:00 Test Item Value Reference Range Interpretation Comments Ethanol Lvl (test code = Ethanol Lvl) no gt [place] 408583-02-21 12:50:00 Test Item Value Reference Range Interpretation Comments Etoh (%) (test code = Etoh (%)) no gt [facility] CenterFjogkvjHPTUSWFHK3593-91-47 12:50:00 Test Item Value Reference Range Interpretation Comments Lactic Acid Lvl (test code = Lactic 0.7 0.5-2.2 Acid Lvl) [facility] CenterGjunwtlIFUOBKPRT6483-81-21 12:50:00 Test Item Value Reference Range Interpretation Comments Total Protein (test code = Total 6.1 6.4-8.4 Protein) [place] 408583-02-21 12:50:00 Test Item Value Reference Range Interpretation Comments Albumin Lvl (test code = Albumin Lvl) 2.9 3.5-5.0 [place] [address]-02-21 12:50:00 Test Item Value Reference Range Interpretation Comments Globulin (test code = Globulin) 3.2 2.7-4.2 [place] [address]-02-21 12:50:00 Test Item Value Reference Range Interpretation Comments A/G Ratio (test code = A/G Ratio) 0.9 1 0.7-1.6 [place] 408583-02-21 12:50:00 Test Item Value Reference Range Interpretation Comments ALT (test code = ALT) 16 See_Comment [Auto mated message] The system which ge nerated this result transmit sheba reference range : <=65. The reference range was not used to interpr et this result as edy l/abnormal. [facility] ChildrenNvannuuNXOVUOWQH3177-51-45 12:50:00 Test Item Value Reference Range Interpretation Comments AST (test code = AST) 15 See_Comment [Auto mated message] The system which ge nerated this result transmit sheba reference range : <=37. The reference range was not used to interpr et this result as edy l/abnormal. [facility] ChildrenRgqnbwoHCJLDJTTV3687-35-26 12:50:00 Test Item Value Reference Range Interpretation Comments Alk Phos (test code = Alk Phos) 96 39-136 [facility] ChildrenBltlchaTWLWUFPVG6954-19-46 12:50:00 Test Item Value Reference Range Interpretation Comments Bili Total (test code = Bili Total) 0.2 0.2-1.3 [facility] ChildrenEmslcegPYBDGNCDG7134-49-33 12:50:00 Test Item Value Reference Range Interpretation Comments Bili Direct (test code no gt See_Comment [Aut omated message] The = Bili Direct) system which generated this result tra nsmitted reference range : <=0.3. The reference r christiano was not used to int erpret this result as edy l/abnormal. [facility] ChildrenCfxizjeKZYDBBWFX8947-26-70 12:50:00 Test Item Value Reference Range Interpretation Comments Bili Indirect Unable to See_Comment [Automated (test code = Bili Calculate message] T he system Indirect) which generated this result transmitted reference range : <=1.0. The reference range was not used to interpret this result as normal/abnormal . [facility] ChildrenHuqkuosFYKSANCIX3826-02-90 12:50:00 Test Item Value Reference Range Interpretation Comments HS Troponin I (test code = HS Troponin 15 I) [facility] ChildrenNywefdoMAXYRGDFH4096-25-04 12:50:00 Test Item Value Reference Range Interpretation Comments pH Justin (test code = pH Justin) 7.35 1 7.28-7.42 [facility] ChildrenBwotjyoWGCSJOSIU5567-33-33 12:50:00 Test Item Value Reference Range Interpretation Comments pCO2 Justin (test code = pCO2 Justin) 55 38-52 [facility] YzwdqltSTXPXQICR0817-71-79 12:50:00 Test Item Value Reference Range Interpretation Comments pO2 Justin (test code = pO2 Justin) 43 20-49 [place] 408583-02-21 12:50:00 Test Item Value Reference Range Interpretation Comments HCO3 Justin (test code = HCO3 Justni) 30 22-26 [place] [address]-02-21 12:50:00 Test Item Value Reference Range Interpretation Comments BE Justin (test code = BE Justin) 3 -2-2 [place] 408583-02-21 12:50:00 Test Item Value Reference Range Interpretation Comments O2 Sat Justin (calc) (test code = O2 Sat 75.9 40.0-70.0 Justin (calc)) [facility] CenterJefemnaOVHKXVTZW6807-48-32 12:50:00 Test Item Value Reference Range Interpretation Comments Temp Justin (test code = Temp Justin) 37.0 [place] 744043-02-21 12:50:00 Test Item Value Reference Range Interpretation Comments ACT (TEG) Rapid (test code = ACT (TEG) 113 s 86-118 Rapid) [place] 744043-02-21 12:50:00 Test Item Value Reference Range Interpretation Comments Split Point Rapid (test code = Split 0.6 min Point Rapid) [place] 744043-02-21 12:50:00 Test Item Value Reference Range Interpretation Comments R-time Rapid (test code = R-time 0.7 min 0.4-0.7 Rapid) [id number] 12:50:00 Test Item Value Reference Range Interpretation Comments K-time Rapid (test code = K-time 1.1 min 0.6-2.3 Rapid) [place] 744043-02-21 12:50:00 Test Item Value Reference Range Interpretation Comments Angle Rapid (test code = Angle 78 degrees 64-80 Rapid) [place] 744043-02-21 12:50:00 Test Item Value Reference Range Interpretation Comments Max Amplitude Rapid (test code = Max 65 mm 52-71 Amplitude Rapid) [place] 744043-02-21 12:50:00 Test Item Value Reference Range Interpretation Comments G-value Rapid (test code = G-value 9.2 5.0-11.6 Rapid) [place] 744043-02-21 12:50:00 Test Item Value Reference Range Interpretation Comments Estimated % Lysis Rapid 0.0 See_Comment [Au tomated message] The (test code = Estimated syste m which generated % Lysis Rapid) this result t ransmitted reference range : <=7.5. The reference r christiano was not used to int erpret this result as normal/abnormal . [facility]K1679[facility]67-78 12:50:00 Test Item Value Reference Range Interpretation Comments Plt Morph (test code = See Note 1(11/21/22 Plt Morph) 6:50 AM) [facility]PwgfjbnGIMBICYBNE3143-01-70 12:50:00 Test Item Value Reference Range Interpretation Comments Stomatocyte (test code = Stomatocyte) slight [facility]GtgjzkbQVWKWMEZWF8829-84-16 12:50:00 Test Item Value Reference Range Interpretation Comments WBC X 10x3 (test code = WBC X 10x3) 8.7 3.7-10.4 [place] 744043-02-21 12:50:00 Test Item Value Reference Range Interpretation Comments RBC X 10x6 (test code = RBC X 10x6) 3.56 4.20-5.40 [place] 744043-02-21 12:50:00 Test Item Value Reference Range Interpretation Comments Hgb (test code = Hgb) 10.4 12.0-16.0 [place] 744043-02-21 12:50:00 Test Item Value Reference Range Interpretation Comments Hct (test code = Hct) 32.3 36.0-48.0 [place] 744043-02-21 12:50:00 Test Item Value Reference Range Interpretation Comments MCV (test code = MCV) 90.8 80.0-98.0 [place] [address]-02-21 12:50:00 Test Item Value Reference Range Interpretation Comments MCH (test code = MCH) 29.3 pg 27.0-31.0 [place] 744043-02-21 12:50:00 Test Item Value Reference Range Interpretation Comments MCHC (test code = MCHC) 32.2 32.0-36.0 [place] [address]-02-21 12:50:00 Test Item Value Reference Range Interpretation Comments RDW (test code = RDW) 13.7 11.5-14.5 [place] [address]-02-21 12:50:00 Test Item Value Reference Range Interpretation Comments Platelet (test code = Platelet) 137 133-450 [place] [address]-02-21 12:50:00 Test Item Value Reference Range Interpretation Comments MPV (test code = MPV) 7.9 7.4-10.4 [place] [address]-02-21 12:50:00 Test Item Value Reference Range Interpretation Comments ACT (TEG) Rapid (test code = ACT (TEG) 113 s 86-118 Rapid) [place] [address]-02-21 12:50:00 Test Item Value Reference Range Interpretation Comments Split Point Rapid (test code = Split 0.6 min Point Rapid) [place] [address]-02-21 12:50:00 Test Item Value Reference Range Interpretation Comments R-time Rapid (test code = R-time 0.7 min 0.4-0.7 Rapid) [place] [address]-02-21 12:50:00 Test Item Value Reference Range Interpretation Comments K-time Rapid (test code = K-time 1.1 min 0.6-2.3 Rapid) [place] [address]-02-21 12:50:00 Test Item Value Reference Range Interpretation Comments Angle Rapid (test code = Angle 78 degrees 64-80 Rapid) [place] [address]-02-21 12:50:00 Test Item Value Reference Range Interpretation Comments Max Amplitude Rapid (test code = Max 65 mm 52-71 Amplitude Rapid) [place] [address]-02-21 12:50:00 Test Item Value Reference Range Interpretation Comments G-value Rapid (test code = G-value 9.2 5.0-11.6 Rapid) [place] [address]-02-21 12:50:00 Test Item Value Reference Range Interpretation Comments Estimated % Lysis Rapid 0.0 See_Comment [Au tomated message] The (test code = Estimated syste m which generated % Lysis Rapid) this result t ransmitted reference range : <=7.5. The reference r christiano was not used to int erpret this result as normal/abnormal . [place] 744043-02-21 12:50:00 Test Item Value Reference Range Interpretation Comments Plt Morph (test code = See Note 1(2/21/23 Plt Morph) 6:50 AM) [place] 744043-02-21 12:50:00 Test Item Value Reference Range Interpretation Comments Segs (test code = Segs) 64.1 45.0-75.0 [place] 744043-02-21 12:50:00 Test Item Value Reference Range Interpretation Comments Lymphocytes (test code = Lymphocytes) 22.0 20.0-40.0 [place] 744043-02-21 12:50:00 Test Item Value Reference Range Interpretation Comments Monocytes (test code = Monocytes) 8.3 2.0-12.0 [place] [address]-02-21 12:50:00 Test Item Value Reference Range Interpretation Comments Eosinophils (test code = 4.7 See_Comment [A utomated message] The Eosinophils) system which ge nerated this result tra nsmitted reference range : <=4.0. The reference r christiano was not used to int erpret this result as normal/abnormal . [place] 744043-02-21 12:50:00 Test Item Value Reference Range Interpretation Comments Basophils (test code = 0.9 See_Comment [Aut omated message] The Basophils) system which ge nerated this result tra nsmitted reference range : <=1.0. The reference r christiano was not used to int erpret this result as normal/abnormal . [place] 744043-02-21 12:50:00 Test Item Value Reference Range Interpretation Comments Neutrophils # (test code = Neutrophils 5.6 1.5-8.1 #) [place] 744043-02-21 12:50:00 Test Item Value Reference Range Interpretation Comments Lymphocytes # (test code = Lymphocytes 1.9 1.0-5.5 #) [place] [address]-02-21 12:50:00 Test Item Value Reference Range Interpretation Comments Monocytes # (test code 0.7 See_Comment [Aut omated message] The = Monocytes #) system which generated this result tra nsmitted reference range : <=0.8. The reference r christiano was not used to int erpret this result as normal/abnormal . [place] 744043-02-21 12:50:00 Test Item Value Reference Range Interpretation Comments Eosinophils # (test code 0.4 See_Comment [A utomated message] The = Eosinophils #) system whic h generated this result tra nsmitted reference range : <=0.5. The reference r christiano was not used to int erpret this result as normal/abnormal . [facility] NddkfxmDQOKIBIAFJ3258-63-54 12:50:00 Test Item Value Reference Range Interpretation Comments Basophils # (test code 0.1 See_Comment [Aut omated message] The = Basophils #) system which generated this result tra nsmitted reference range : <=0.2. The reference r christiano was not used to int erpret this result as normal/abnormal . [facility] DxhuvllDVIYQKBEBW3352-15-03 12:50:00 Test Item Value Reference Range Interpretation Comments Stomatocyte (test code = Stomatocyte) slight [facility] PdxcvimCKCJILEXLK8658-70-28 12:50:00 Test Item Value Reference Range Interpretation Comments Ethanol Lvl (test code = Ethanol Lvl) no gt [facility] NbeehgoEPFZLPYZCC8222-26-98 12:50:00 Test Item Value Reference Range Interpretation Comments Etoh (%) (test code = Etoh (%)) no gt [facility] [employer] [id number] 12:50:00 Test Item Value Reference Range Interpretation Comments ABO/Rh (test code = ABO/Rh) O POS [facility] [employer] [id number] 12:50:00 Test Item Value Reference Range Interpretation Comments Antibody Scrn (test Negative (11/21/22 6:50 code = Antibody Scrn) AM) [facility] [employer] [id number] 12:50:00 Test Item Value Reference Range Interpretation Comments ABO/Rh (test code = ABO/Rh) O POS [facility] [employer] [id number] 12:50:00 Test Item Value Reference Range Interpretation Comments Antibody Scrn (test Negative (11/21/22 6:50 code = Antibody Scrn) AM) [facility] YlopoCARDIAC [id number] 12:50:00 Test Item Value Reference Range Interpretation Comments HS Troponin I (test code = HS Troponin 15 I) [facility] [employer] [id number] 12:50:00 Test Item Value Reference Range Interpretation Comments Glucose Lvl (test code = Glucose Lvl) 99 70-99 [facility] [employer] [id number] 12:50:00 Test Item Value Reference Range Interpretation Comments BUN (test code = BUN) 38 7-22 [place] 570323-02-21 12:50:00 Test Item Value Reference Range Interpretation Comments Creatinine Lvl (test code = Creatinine 2.38 0.50-1.40 Lvl) [place] 570323-02-21 12:50:00 Test Item Value Reference Range Interpretation Comments Sodium Lvl (test code = Sodium Lvl) 140 135-145 [place] 570323-02-21 12:50:00 Test Item Value Reference Range Interpretation Comments Potassium Lvl (test code = Potassium 3.9 3.5-5.1 Lvl) [place] 570323-02-21 12:50:00 Test Item Value Reference Range Interpretation Comments Chloride Lvl (test code = Chloride Lvl) 107 95-109 [place] 570323-02-21 12:50:00 Test Item Value Reference Range Interpretation Comments CO2 (test code = CO2) 27 24-32 [place] 570323-02-21 12:50:00 Test Item Value Reference Range Interpretation Comments Calcium Lvl (test code = Calcium Lvl) 8.1 8.5-10.5 [place] 570323-02-21 12:50:00 Test Item Value Reference Range Interpretation Comments AGAP (test code = AGAP) 9.9 10.0-20.0 [facility]2023-02-21 12:50:00 Test Item Value Reference Range Interpretation Comments eGFR (test code = eGFR) 20 [place] 570323-02-21 12:50:00 Test Item Value Reference Range Interpretation Comments Lactic Acid Lvl (test code = Lactic 0.7 0.5-2.2 Acid Lvl) [place] 570323-02-21 12:50:00 Test Item Value Reference Range Interpretation Comments Total Protein (test code = Total 6.1 6.4-8.4 Protein) [place] 570323-02-21 12:50:00 Test Item Value Reference Range Interpretation Comments Albumin Lvl (test code = Albumin Lvl) 2.9 3.5-5.0 [place] 570323-02-21 12:50:00 Test Item Value Reference Range Interpretation Comments Globulin (test code = Globulin) 3.2 2.7-4.2 [place] [address]-02-21 12:50:00 Test Item Value Reference Range Interpretation Comments A/G Ratio (test code = A/G Ratio) 0.9 1 0.7-1.6 [place] [address]-02-21 12:50:00 Test Item Value Reference Range Interpretation Comments ALT (test code = ALT) 16 See_Comment [Auto mated message] The system which ge nerated this result transmit sheba reference range : <=65. The reference range was not used to interpr et this result as edy l/abnormal. [place] [address]-02-21 12:50:00 Test Item Value Reference Range Interpretation Comments AST (test code = AST) 15 See_Comment [Auto mated message] The system which ge nerated this result transmit sheba reference range : <=37. The reference range was not used to interpr et this result as edy l/abnormal. [place] [address]-02-21 12:50:00 Test Item Value Reference Range Interpretation Comments Alk Phos (test code = Alk Phos) 96 39-136 [place] [address]-02-21 12:50:00 Test Item Value Reference Range Interpretation Comments Bili Total (test code = Bili Total) 0.2 0.2-1.3 [place] [address]-02-21 12:50:00 Test Item Value Reference Range Interpretation Comments Bili Direct (test code no gt See_Comment [Aut omated message] The = Bili Direct) system which generated this result tra nsmitted reference range : <=0.3. The reference r christiano was not used to int erpret this result as edy l/abnormal. [place] [address]-02-21 12:50:00 Test Item Value Reference Range Interpretation Comments Bili Indirect Unable to See_Comment [Automated (test code = Bili Calculate message] T he system Indirect) which generated this result transmitted reference range : <=1.0. The reference range was not used to interpret this result as normal/abnormal . [place] [address]-02-21 12:50:00 Test Item Value Reference Range Interpretation Comments Ethanol Lvl (test code = Ethanol Lvl) no gt [place] [address]-02-21 12:50:00 Test Item Value Reference Range Interpretation Comments Etoh (%) (test code = Etoh (%)) no gt [facility] CenterIhrxrinDICPOVBTD8469-37-69 12:50:00 Test Item Value Reference Range Interpretation Comments Lactic Acid Lvl (test code = Lactic 0.7 0.5-2.2 Acid Lvl) [place] 408583-02-21 12:50:00 Test Item Value Reference Range Interpretation Comments Total Protein (test code = Total 6.1 6.4-8.4 Protein) [facility] CenterFwfmgkeRRXWMZUSY5225-37-63 12:50:00 Test Item Value Reference Range Interpretation Comments Albumin Lvl (test code = Albumin Lvl) 2.9 3.5-5.0 [place] 408583-02-21 12:50:00 Test Item Value Reference Range Interpretation Comments Globulin (test code = Globulin) 3.2 2.7-4.2 [place] 408583-02-21 12:50:00 Test Item Value Reference Range Interpretation Comments A/G Ratio (test code = A/G Ratio) 0.9 1 0.7-1.6 [place] 408583-02-21 12:50:00 Test Item Value Reference Range Interpretation Comments ALT (test code = ALT) 16 See_Comment [Auto mated message] The system which ge nerated this result transmit sheba reference range : <=65. The reference range was not used to interpr et this result as edy l/abnormal. [facility] CenterYwkncesAUKAJIQTM2869-52-55 12:50:00 Test Item Value Reference Range Interpretation Comments AST (test code = AST) 15 See_Comment [Auto mated message] The system which ge nerated this result transmit sheba reference range : <=37. The reference range was not used to interpr et this result as edy l/abnormal. [facility] CenterSuofkxnVJPRIESPC2318-83-01 12:50:00 Test Item Value Reference Range Interpretation Comments Alk Phos (test code = Alk Phos) 96 39-136 [facility] CenterFlegxncEOEOCOHTO9233-85-83 12:50:00 Test Item Value Reference Range Interpretation Comments Bili Total (test code = Bili Total) 0.2 0.2-1.3 [place] 408583-02-21 12:50:00 Test Item Value Reference Range Interpretation Comments Bili Direct (test code no gt See_Comment [Aut omated message] The = Bili Direct) system which generated this result tra nsmitted reference range : <=0.3. The reference r christiano was not used to int erpret this result as edy l/abnormal. [facility] CenterDewtmilKKBNZIOVY0737-28-29 12:50:00 Test Item Value Reference Range Interpretation Comments Bili Indirect Unable to See_Comment [Automated (test code = Bili Calculate message] T he system Indirect) which generated this result transmitted reference range : <=1.0. The reference range was not used to interpret this result as normal/abnormal . [facility] CenterAgkffuvOQVSAUHYE6089-12-48 12:50:00 Test Item Value Reference Range Interpretation Comments HS Troponin I (test code = HS Troponin 15 I) [facility] CenterMyyhyqpFBUIXBWBI0292-42-98 12:50:00 Test Item Value Reference Range Interpretation Comments pH Justin (test code = pH Justin) 7.35 1 7.28-7.42 [place] 408583-02-21 12:50:00 Test Item Value Reference Range Interpretation Comments pCO2 Justin (test code = pCO2 Justin) 55 38-52 [facility] CenterLqaoazzGNLILAFWJ9948-73-70 12:50:00 Test Item Value Reference Range Interpretation Comments pO2 Justin (test code = pO2 Justin) 43 20-49 [facility] CenterTeakmpkCBWIOTIKB2780-59-32 12:50:00 Test Item Value Reference Range Interpretation Comments HCO3 Justin (test code = HCO3 Justin) 30 22-26 [place] 408583-02-21 12:50:00 Test Item Value Reference Range Interpretation Comments BE Justin (test code = BE Justin) 3 -2-2 [facility] CenterTvghcgiKOJGWMULW0687-07-58 12:50:00 Test Item Value Reference Range Interpretation Comments O2 Sat Justin (calc) (test code = O2 Sat 75.9 40.0-70.0 Justin (calc)) [facility] CenterIfldobgRQASCYUSE9240-53-80 12:50:00 Test Item Value Reference Range Interpretation Comments Temp Justin (test code = Temp Justin) 37.0 [place] 744043-02-21 12:50:00 Test Item Value Reference Range Interpretation Comments ACT (TEG) Rapid (test code = ACT (TEG) 113 s 86-118 Rapid) [facility]TsxxknqNCOTENCABY3570-00-90 12:50:00 Test Item Value Reference Range Interpretation Comments Split Point Rapid (test code = Split 0.6 min Point Rapid) [facility] HospitalTtuvujyZFACUPKGOO9614-66-96 12:50:00 Test Item Value Reference Range Interpretation Comments R-time Rapid (test code = R-time 0.7 min 0.4-0.7 Rapid) [place] 744043-02-21 12:50:00 Test Item Value Reference Range Interpretation Comments K-time Rapid (test code = K-time 1.1 min 0.6-2.3 Rapid) [place] [address]-02-21 12:50:00 Test Item Value Reference Range Interpretation Comments Angle Rapid (test code = Angle 78 degrees 64-80 Rapid) [place] [address]-02-21 12:50:00 Test Item Value Reference Range Interpretation Comments Max Amplitude Rapid (test code = Max 65 mm 52-71 Amplitude Rapid) [place] [address]-02-21 12:50:00 Test Item Value Reference Range Interpretation Comments G-value Rapid (test code = G-value 9.2 5.0-11.6 Rapid) [place] 744043-02-21 12:50:00 Test Item Value Reference Range Interpretation Comments Estimated % Lysis Rapid 0.0 See_Comment [Au tomated message] The (test code = Estimated syste m which generated % Lysis Rapid) this result t ransmitted reference range : <=7.5. The reference r christiano was not used to int erpret this result as normal/abnormal . [facility] HospitalByaxgmnYTJSCAAKVL4439-49-80 12:50:00 Test Item Value Reference Range Interpretation Comments Plt Morph (test code = See Note 1(11/21/22 Plt Morph) 6:50 AM) [place] 744043-02-21 12:50:00 Test Item Value Reference Range Interpretation Comments Stomatocyte (test code = Stomatocyte) slight [place] 744043-02-21 12:50:00 Test Item Value Reference Range Interpretation Comments WBC X 10x3 (test code = WBC X 10x3) 8.7 3.7-10.4 [place] 744043-02-21 12:50:00 Test Item Value Reference Range Interpretation Comments RBC X 10x6 (test code = RBC X 10x6) 3.56 4.20-5.40 [place] [address]-02-21 12:50:00 Test Item Value Reference Range Interpretation Comments Hgb (test code = Hgb) 10.4 12.0-16.0 [place] [address]-02-21 12:50:00 Test Item Value Reference Range Interpretation Comments Hct (test code = Hct) 32.3 36.0-48.0 [place] [address]-02-21 12:50:00 Test Item Value Reference Range Interpretation Comments MCV (test code = MCV) 90.8 80.0-98.0 [place] [address]-02-21 12:50:00 Test Item Value Reference Range Interpretation Comments MCH (test code = MCH) 29.3 pg 27.0-31.0 [place] 744043-02-21 12:50:00 Test Item Value Reference Range Interpretation Comments MCHC (test code = MCHC) 32.2 32.0-36.0 [place] 744043-02-21 12:50:00 Test Item Value Reference Range Interpretation Comments RDW (test code = RDW) 13.7 11.5-14.5 [place] [address]-02-21 12:50:00 Test Item Value Reference Range Interpretation Comments Platelet (test code = Platelet) 137 133-450 [place] [address]-02-21 12:50:00 Test Item Value Reference Range Interpretation Comments MPV (test code = MPV) 7.9 7.4-10.4 [place] [address]-02-21 12:50:00 Test Item Value Reference Range Interpretation Comments ACT (TEG) Rapid (test code = ACT (TEG) 113 s 86-118 Rapid) [place] [address]-02-21 12:50:00 Test Item Value Reference Range Interpretation Comments Split Point Rapid (test code = Split 0.6 min Point Rapid) [place] [address]-02-21 12:50:00 Test Item Value Reference Range Interpretation Comments R-time Rapid (test code = R-time 0.7 min 0.4-0.7 Rapid) [place] [address]-02-21 12:50:00 Test Item Value Reference Range Interpretation Comments K-time Rapid (test code = K-time 1.1 min 0.6-2.3 Rapid) [place] [address]-02-21 12:50:00 Test Item Value Reference Range Interpretation Comments Angle Rapid (test code = Angle 78 degrees 64-80 Rapid) [place] [address]-02-21 12:50:00 Test Item Value Reference Range Interpretation Comments Max Amplitude Rapid (test code = Max 65 mm 52-71 Amplitude Rapid) [place] [address]-02-21 12:50:00 Test Item Value Reference Range Interpretation Comments G-value Rapid (test code = G-value 9.2 5.0-11.6 Rapid) [place] [address]-02-21 12:50:00 Test Item Value Reference Range Interpretation Comments Estimated % Lysis Rapid 0.0 See_Comment [Au tomated message] The (test code = Estimated syste m which generated % Lysis Rapid) this result t ransmitted reference range : <=7.5. The reference r christiano was not used to int erpret this result as normal/abnormal . [place] [address]-02-21 12:50:00 Test Item Value Reference Range Interpretation Comments Plt Morph (test code = See Note 1(11/21/22 Plt Morph) 6:50 AM) [place] [address]-02-21 12:50:00 Test Item Value Reference Range Interpretation Comments Segs (test code = Segs) 64.1 45.0-75.0 [place] [address]-02-21 12:50:00 Test Item Value Reference Range Interpretation Comments Lymphocytes (test code = Lymphocytes) 22.0 20.0-40.0 [place] [address]-02-21 12:50:00 Test Item Value Reference Range Interpretation Comments Monocytes (test code = Monocytes) 8.3 2.0-12.0 [place] [address]-02-21 12:50:00 Test Item Value Reference Range Interpretation Comments Eosinophils (test code = 4.7 See_Comment [A utomated message] The Eosinophils) system which ge nerated this result tra nsmitted reference range : <=4.0. The reference r christiano was not used to int erpret this result as normal/abnormal . [place] [address]-02-21 12:50:00 Test Item Value Reference Range Interpretation Comments Basophils (test code = 0.9 See_Comment [Aut omated message] The Basophils) system which ge nerated this result tra nsmitted reference range : <=1.0. The reference r christiano was not used to int erpret this result as normal/abnormal . [facility] HospitalYppfrdfTCBOFOKSHF5637-23-65 12:50:00 Test Item Value Reference Range Interpretation Comments Neutrophils # (test code = Neutrophils 5.6 1.5-8.1 #) [facility] HospitalJudvlgtHYWJELWHKI5523-40-75 12:50:00 Test Item Value Reference Range Interpretation Comments Lymphocytes # (test code = Lymphocytes 1.9 1.0-5.5 #) [facility] HospitalUvikghhWYRZVZAQYN1570-79-40 12:50:00 Test Item Value Reference Range Interpretation Comments Monocytes # (test code 0.7 See_Comment [Aut omated message] The = Monocytes #) system which generated this result tra nsmitted reference range : <=0.8. The reference r christiano was not used to int erpret this result as normal/abnormal . [facility] HospitalQjcvlrmJGFGGRADWP3153-73-49 12:50:00 Test Item Value Reference Range Interpretation Comments Eosinophils # (test code 0.4 See_Comment [A utomated message] The = Eosinophils #) system whic h generated this result tra nsmitted reference range : <=0.5. The reference r christiano was not used to int erpret this result as normal/abnormal . [facility] HospitalPsclzyaNRZNQQBWIZ6706-22-23 12:50:00 Test Item Value Reference Range Interpretation Comments Basophils # (test code 0.1 See_Comment [Aut omated message] The = Basophils #) system which generated this result tra nsmitted reference range : <=0.2. The reference r christiano was not used to int erpret this result as normal/abnormal . [facility] HospitalZvxelfqGJXBENXWFY7942-67-80 12:50:00 Test Item Value Reference Range Interpretation Comments Stomatocyte (test code = Stomatocyte) slight [facility]udaOfibrkeDCJYYPTBHO5409-16-51 12:50:00 Test Item Value Reference Range Interpretation Comments Ethanol Lvl (test code = Ethanol Lvl) no gt [facility] BudaCojmrigWKFXUTNKRQ2993-42-42 12:50:00 Test Item Value Reference Range Interpretation Comments Etoh (%) (test code = Etoh (%)) no gt [facility] GGOMGGS5906-64-99 12:50:00 Test Item Value Reference Range Interpretation Comments ABO/Rh (test code = ABO/Rh) O POS [facility] [employer] EIGQCZN8169-44-05 12:50:00 Test Item Value Reference Range Interpretation Comments Antibody Scrn (test Negative (11/21/22 6:50 code = Antibody Scrn) AM) [facility] [facility] [employer] [id number] 12:50:00 Test Item Value Reference Range Interpretation Comments ABO/Rh (test code = ABO/Rh) O POS [facility] [employer] [id number] 12:50:00 Test Item Value Reference Range Interpretation Comments Antibody Scrn (test Negative (11/21/22 6:50 code = Antibody Scrn) AM) [facility] YlopoCARDIAC [id number] 12:50:00 Test Item Value Reference Range Interpretation Comments HS Troponin I (test code = HS Troponin 15 I) [facility] Soocial [id number] 12:50:00 Test Item Value Reference Range Interpretation Comments Glucose Lvl (test code = Glucose Lvl) 99 70-99 [facility] [employer] [id number] 12:50:00 Test Item Value Reference Range Interpretation Comments BUN (test code = BUN) 38 7-22 [facility] [employer] [id number] 12:50:00 Test Item Value Reference Range Interpretation Comments Creatinine Lvl (test code = Creatinine 2.38 0.50-1.40 Lvl) [facility] [employer] [id number] 12:50:00 Test Item Value Reference Range Interpretation Comments Sodium Lvl (test code = Sodium Lvl) 140 135-145 [facility] [employer] [id number] 12:50:00 Test Item Value Reference Range Interpretation Comments Potassium Lvl (test code = Potassium 3.9 3.5-5.1 Lvl) [facility] [employer] [id number] 12:50:00 Test Item Value Reference Range Interpretation Comments Chloride Lvl (test code = Chloride Lvl) 107 95-109 [facility] [employer]2023-02-21 12:50:00 Test Item Value Reference Range Interpretation Comments CO2 (test code = CO2) 27 24-32 [facility] [employer]2023-02-21 12:50:00 Test Item Value Reference Range Interpretation Comments Calcium Lvl (test code = Calcium Lvl) 8.1 8.5-10.5 [place] 570323-02-21 12:50:00 Test Item Value Reference Range Interpretation Comments AGAP (test code = AGAP) 9.9 10.0-20.0 [place] [address]-02-21 12:50:00 Test Item Value Reference Range Interpretation Comments eGFR (test code = eGFR) 20 [place] 570323-02-21 12:50:00 Test Item Value Reference Range Interpretation Comments Lactic Acid Lvl (test code = Lactic 0.7 0.5-2.2 Acid Lvl) [place] 570323-02-21 12:50:00 Test Item Value Reference Range Interpretation Comments Total Protein (test code = Total 6.1 6.4-8.4 Protein) [place] 570323-02-21 12:50:00 Test Item Value Reference Range Interpretation Comments Albumin Lvl (test code = Albumin Lvl) 2.9 3.5-5.0 [place] 570323-02-21 12:50:00 Test Item Value Reference Range Interpretation Comments Globulin (test code = Globulin) 3.2 2.7-4.2 [place] 570323-02-21 12:50:00 Test Item Value Reference Range Interpretation Comments A/G Ratio (test code = A/G Ratio) 0.9 1 0.7-1.6 [place] 570323-02-21 12:50:00 Test Item Value Reference Range Interpretation Comments ALT (test code = ALT) 16 See_Comment [Auto mated message] The system which ge nerated this result transmit sheba reference range : <=65. The reference range was not used to interpr et this result as edy l/abnormal. [place] 570323-02-21 12:50:00 Test Item Value Reference Range Interpretation Comments AST (test code = AST) 15 See_Comment [Auto mated message] The system which ge nerated this result transmit sheba reference range : <=37. The reference range was not used to interpr et this result as edy l/abnormal. [place] 570323-02-21 12:50:00 Test Item Value Reference Range Interpretation Comments Alk Phos (test code = Alk Phos) 96 39-136 [place] 570323-02-21 12:50:00 Test Item Value Reference Range Interpretation Comments Bili Total (test code = Bili Total) 0.2 0.2-1.3 [facility]2023-02-21 12:50:00 Test Item Value Reference Range Interpretation Comments Bili Direct (test code no gt See_Comment [Aut omated message] The = Bili Direct) system which generated this result tra nsmitted reference range : <=0.3. The reference r christiano was not used to int erpret this result as edy l/abnormal. [facility] [id number] 12:50:00 Test Item Value Reference Range Interpretation Comments Bili Indirect Unable to See_Comment [Automated (test code = Bili Calculate message] T he system Indirect) which generated this result transmitted reference range : <=1.0. The reference range was not used to interpret this result as normal/abnormal . [facility] CenterUxlqivzDLWLAJSSO3705-09-92 12:50:00 Test Item Value Reference Range Interpretation Comments Ethanol Lvl (test code = Ethanol Lvl) no gt [facility] CenterKjimbscVFJXCUQFW2166-90-29 12:50:00 Test Item Value Reference Range Interpretation Comments Etoh (%) (test code = Etoh (%)) no gt [facility] CenterJrrtuzqMANMSMFNN2179-46-26 12:50:00 Test Item Value Reference Range Interpretation Comments Lactic Acid Lvl (test code = Lactic 0.7 0.5-2.2 Acid Lvl) [facility] CenterCpnqmsrXPVPNTKZQ8179-70-72 12:50:00 Test Item Value Reference Range Interpretation Comments Total Protein (test code = Total 6.1 6.4-8.4 Protein) [facility] CenterCxgxwadZYVGFUIPT3358-40-16 12:50:00 Test Item Value Reference Range Interpretation Comments Albumin Lvl (test code = Albumin Lvl) 2.9 3.5-5.0 [place] [address]-02-21 12:50:00 Test Item Value Reference Range Interpretation Comments Globulin (test code = Globulin) 3.2 2.7-4.2 [place] 408583-02-21 12:50:00 Test Item Value Reference Range Interpretation Comments A/G Ratio (test code = A/G Ratio) 0.9 1 0.7-1.6 [place] 408583-02-21 12:50:00 Test Item Value Reference Range Interpretation Comments ALT (test code = ALT) 16 See_Comment [Auto mated message] The system which ge nerated this result transmit sheba reference range : <=65. The reference range was not used to interpr et this result as edy l/abnormal. [facility] ChildrenTfzmxisNPFTMVRLW5777-83-64 12:50:00 Test Item Value Reference Range Interpretation Comments AST (test code = AST) 15 See_Comment [Auto mated message] The system which ge nerated this result transmit sheba reference range : <=37. The reference range was not used to interpr et this result as edy l/abnormal. [facility] ChildrenCkpsjouNEEYTDPCR9686-35-28 12:50:00 Test Item Value Reference Range Interpretation Comments Alk Phos (test code = Alk Phos) 96 39-136 [facility] ChildrenCkjldugXLUHGFUXQ9641-58-21 12:50:00 Test Item Value Reference Range Interpretation Comments Bili Total (test code = Bili Total) 0.2 0.2-1.3 [facility] ChildrenHbwrskkTEYQGYCAW4585-14-01 12:50:00 Test Item Value Reference Range Interpretation Comments Bili Direct (test code no gt See_Comment [Aut omated message] The = Bili Direct) system which generated this result tra nsmitted reference range : <=0.3. The reference r christiano was not used to int erpret this result as edy l/abnormal. [facility] ChildrenXnleedsZMLQZKMIR5920-55-15 12:50:00 Test Item Value Reference Range Interpretation Comments Bili Indirect Unable to See_Comment [Automated (test code = Bili Calculate message] T he system Indirect) which generated this result transmitted reference range : <=1.0. The reference range was not used to interpret this result as normal/abnormal . [facility] ChildrenYoxnflwZCBLQOHOQ4064-23-01 12:50:00 Test Item Value Reference Range Interpretation Comments HS Troponin I (test code = HS Troponin 15 I) [facility] ChildrenQklbxwdPFIVFOGKE5435-31-20 12:50:00 Test Item Value Reference Range Interpretation Comments pH Justin (test code = pH Justin) 7.35 1 7.28-7.42 [facility] ChildrenKdwvrxwKVXAVIRYB2342-18-21 12:50:00 Test Item Value Reference Range Interpretation Comments pCO2 Justin (test code = pCO2 Justin) 55 38-52 [facility] ChildrenHgjwbxaTEULNATSL6891-00-06 12:50:00 Test Item Value Reference Range Interpretation Comments pO2 Justin (test code = pO2 Justin) 43 20-49 [facility] CenterTbcujhfVNPGZWITH9512-56-77 12:50:00 Test Item Value Reference Range Interpretation Comments HCO3 Justin (test code = HCO3 Justin) 30 22-26 [place] 408583-02-21 12:50:00 Test Item Value Reference Range Interpretation Comments BE Justin (test code = BE Justin) 3 -2-2 [place] 408583-02-21 12:50:00 Test Item Value Reference Range Interpretation Comments O2 Sat Justin (calc) (test code = O2 Sat 75.9 40.0-70.0 Justin (calc)) [facility] CenterWvhjpetKIXBUVSKS6445-76-90 12:50:00 Test Item Value Reference Range Interpretation Comments Temp Justin (test code = Temp Justin) 37.0 [place] 744043-02-21 12:50:00 Test Item Value Reference Range Interpretation Comments ACT (TEG) Rapid (test code = ACT (TEG) 113 s 86-118 Rapid) [facility]ho[facility]EMRUFCWTCJ0478[facility]42-[facility] 12:50:00 Test Item Value Reference Range Interpretation Comments Split Point Rapid (test code = Split 0.6 min Point Rapid) [facility] HospitalObytkqsHWRCUNXFQP6381-21-07 12:50:00 Test Item Value Reference Range Interpretation Comments R-time Rapid (test code = R-time 0.7 min 0.4-0.7 Rapid) [place] 744043-02-21 12:50:00 Test Item Value Reference Range Interpretation Comments K-time Rapid (test code = K-time 1.1 min 0.6-2.3 Rapid) [place] 744043-02-21 12:50:00 Test Item Value Reference Range Interpretation Comments Angle Rapid (test code = Angle 78 degrees 64-80 Rapid) [facility] HospitalGlrmasnXRAPFXTUXA0412-84-05 12:50:00 Test Item Value Reference Range Interpretation Comments Max Amplitude Rapid (test code = Max 65 mm 52-71 Amplitude Rapid) [place] 744043-02-21 12:50:00 Test Item Value Reference Range Interpretation Comments G-value Rapid (test code = G-value 9.2 5.0-11.6 Rapid) [place] 744043-02-21 12:50:00 Test Item Value Reference Range Interpretation Comments Estimated % Lysis Rapid 0.0 See_Comment [Au tomated message] The (test code = Estimated syste m which generated % Lysis Rapid) this result t ransmitted reference range : <=7.5. The reference r christiano was not used to int erpret this result as normal/abnormal . [facility] HospitalCamrbrmZCOIWANLIO7183-87-86 12:50:00 Test Item Value Reference Range Interpretation Comments Plt Morph (test code = See Note 1(11/21/22 Plt Morph) 6:50 AM) [place] 744043-02-21 12:50:00 Test Item Value Reference Range Interpretation Comments Stomatocyte (test code = Stomatocyte) slight [place] 744043-02-21 12:50:00 Test Item Value Reference Range Interpretation Comments WBC X 10x3 (test code = WBC X 10x3) 8.7 3.7-10.4 [place] 744043-02-21 12:50:00 Test Item Value Reference Range Interpretation Comments RBC X 10x6 (test code = RBC X 10x6) 3.56 4.20-5.40 [place] 744043-02-21 12:50:00 Test Item Value Reference Range Interpretation Comments Hgb (test code = Hgb) 10.4 12.0-16.0 [place] 744043-02-21 12:50:00 Test Item Value Reference Range Interpretation Comments Hct (test code = Hct) 32.3 36.0-48.0 [facility] HospitalTdvjvuvZUZTXHUQJJ7158-91-38 12:50:00 Test Item Value Reference Range Interpretation Comments MCV (test code = MCV) 90.8 80.0-98.0 [place] 744043-02-21 12:50:00 Test Item Value Reference Range Interpretation Comments MCH (test code = MCH) 29.3 pg 27.0-31.0 [place] 744043-02-21 12:50:00 Test Item Value Reference Range Interpretation Comments MCHC (test code = MCHC) 32.2 32.0-36.0 [place] [address]-02-21 12:50:00 Test Item Value Reference Range Interpretation Comments RDW (test code = RDW) 13.7 11.5-14.5 [place] [address]-02-21 12:50:00 Test Item Value Reference Range Interpretation Comments Platelet (test code = Platelet) 137 133-450 [place] 744043-02-21 12:50:00 Test Item Value Reference Range Interpretation Comments MPV (test code = MPV) 7.9 7.4-10.4 [place] 744043-02-21 12:50:00 Test Item Value Reference Range Interpretation Comments ACT (TEG) Rapid (test code = ACT (TEG) 113 s 86-118 Rapid) [place] [address]-02-21 12:50:00 Test Item Value Reference Range Interpretation Comments Split Point Rapid (test code = Split 0.6 min Point Rapid) [place] [address]-02-21 12:50:00 Test Item Value Reference Range Interpretation Comments R-time Rapid (test code = R-time 0.7 min 0.4-0.7 Rapid) [place] [address]-02-21 12:50:00 Test Item Value Reference Range Interpretation Comments K-time Rapid (test code = K-time 1.1 min 0.6-2.3 Rapid) [place] [address]-02-21 12:50:00 Test Item Value Reference Range Interpretation Comments Angle Rapid (test code = Angle 78 degrees 64-80 Rapid) [place] [address]-02-21 12:50:00 Test Item Value Reference Range Interpretation Comments Max Amplitude Rapid (test code = Max 65 mm 52-71 Amplitude Rapid) [place] [address]-02-21 12:50:00 Test Item Value Reference Range Interpretation Comments G-value Rapid (test code = G-value 9.2 5.0-11.6 Rapid) [place] 744043-02-21 12:50:00 Test Item Value Reference Range Interpretation Comments Estimated % Lysis Rapid 0.0 See_Comment [Au tomated message] The (test code = Estimated syste m which generated % Lysis Rapid) this result t ransmitted reference range : <=7.5. The reference r christiano was not used to int erpret this result as normal/abnormal . [place] 744043-02-21 12:50:00 Test Item Value Reference Range Interpretation Comments Plt Morph (test code = See Note 1(11/21/22 Plt Morph) 6:50 AM) [place] [address]-02-21 12:50:00 Test Item Value Reference Range Interpretation Comments Segs (test code = Segs) 64.1 45.0-75.0 [place] [address]-02-21 12:50:00 Test Item Value Reference Range Interpretation Comments Lymphocytes (test code = Lymphocytes) 22.0 20.0-40.0 [place] [address]-02-21 12:50:00 Test Item Value Reference Range Interpretation Comments Monocytes (test code = Monocytes) 8.3 2.0-12.0 [place] [address]-02-21 12:50:00 Test Item Value Reference Range Interpretation Comments Eosinophils (test code = 4.7 See_Comment [A utomated message] The Eosinophils) system which ge nerated this result tra nsmitted reference range : <=4.0. The reference r christiano was not used to int erpret this result as normal/abnormal . [place] [address]-02-21 12:50:00 Test Item Value Reference Range Interpretation Comments Basophils (test code = 0.9 See_Comment [Aut omated message] The Basophils) system which ge nerated this result tra nsmitted reference range : <=1.0. The reference r christiano was not used to int erpret this result as normal/abnormal . [place] 744043-02-21 12:50:00 Test Item Value Reference Range Interpretation Comments Neutrophils # (test code = Neutrophils 5.6 1.5-8.1 #) [place] [address]-02-21 12:50:00 Test Item Value Reference Range Interpretation Comments Lymphocytes # (test code = Lymphocytes 1.9 1.0-5.5 #) [place] [address]-02-21 12:50:00 Test Item Value Reference Range Interpretation Comments Monocytes # (test code 0.7 See_Comment [Aut omated message] The = Monocytes #) system which generated this result tra nsmitted reference range : <=0.8. The reference r christiano was not used to int erpret this result as normal/abnormal . [place] [address]-02-21 12:50:00 Test Item Value Reference Range Interpretation Comments Eosinophils # (test code 0.4 See_Comment [A utomated message] The = Eosinophils #) system whic h generated this result tra nsmitted reference range : <=0.5. The reference r christiano was not used to int erpret this result as normal/abnormal . [facility] AlalpreQNXOIASBLQ5521-68-24 12:50:00 Test Item Value Reference Range Interpretation Comments Basophils # (test code 0.1 See_Comment [Aut omated message] The = Basophils #) system which generated this result tra nsmitted reference range : <=0.2. The reference r christiano was not used to int erpret this result as normal/abnormal . [facility] RkmsplaCCJDLNOJVF6774-23-70 12:50:00 Test Item Value Reference Range Interpretation Comments Stomatocyte (test code = Stomatocyte) slight [facility] GyylowyGCOSTVVZVM0055-10-33 12:50:00 Test Item Value Reference Range Interpretation Comments Ethanol Lvl (test code = Ethanol Lvl) no gt [facility] NslcbbuCCFYQNZTUX0016-45-67 12:50:00 Test Item Value Reference Range Interpretation Comments Etoh (%) (test code = Etoh (%)) no gt [facility] [employer] [id number] 12:50:00 Test Item Value Reference Range Interpretation Comments ABO/Rh (test code = ABO/Rh) O POS [facility] [employer] [id number] 12:50:00 Test Item Value Reference Range Interpretation Comments Antibody Scrn (test Negative (11/21/22 6:50 code = Antibody Scrn) AM) [facility] [employer] [id number] 12:50:00 Test Item Value Reference Range Interpretation Comments ABO/Rh (test code = ABO/Rh) O POS [facility] [employer] [id number] 12:50:00 Test Item Value Reference Range Interpretation Comments Antibody Scrn (test Negative (11/21/22 6:50 code = Antibody Scrn) AM) [facility] YlopoCARDIAC WQQWYNQ0071-62-07 12:50:00 Test Item Value Reference Range Interpretation Comments HS Troponin I (test code = HS Troponin 15 I) [facility] [employer] UABQM6556-95-13 12:50:00 Test Item Value Reference Range Interpretation Comments Glucose Lvl (test code = Glucose Lvl) 99 70-99 [facility] [employer] [id number] 12:50:00 Test Item Value Reference Range Interpretation Comments BUN (test code = BUN) 38 7-22 [facility]2023-02-21 12:50:00 Test Item Value Reference Range Interpretation Comments Creatinine Lvl (test code = Creatinine 2.38 0.50-1.40 Lvl) [facility]2023-02-21 12:50:00 Test Item Value Reference Range Interpretation Comments Sodium Lvl (test code = Sodium Lvl) 140 135-145 [facility]2023-02-21 12:50:00 Test Item Value Reference Range Interpretation Comments Potassium Lvl (test code = Potassium 3.9 3.5-5.1 Lvl) [facility]2023-02-21 12:50:00 Test Item Value Reference Range Interpretation Comments Chloride Lvl (test code = Chloride Lvl) 107 95-109 [facility]2023-02-21 12:50:00 Test Item Value Reference Range Interpretation Comments CO2 (test code = CO2) 27 24-32 [place] 570323-02-21 12:50:00 Test Item Value Reference Range Interpretation Comments Calcium Lvl (test code = Calcium Lvl) 8.1 8.5-10.5 [facility]2023-02-21 12:50:00 Test Item Value Reference Range Interpretation Comments AGAP (test code = AGAP) 9.9 10.0-20.0 [facility]2023-02-21 12:50:00 Test Item Value Reference Range Interpretation Comments eGFR (test code = eGFR) 20 [facility]2023-02-21 12:50:00 Test Item Value Reference Range Interpretation Comments Lactic Acid Lvl (test code = Lactic 0.7 0.5-2.2 Acid Lvl) [facility]2023-02-21 12:50:00 Test Item Value Reference Range Interpretation Comments Total Protein (test code = Total 6.1 6.4-8.4 Protein) [facility]2023-02-21 12:50:00 Test Item Value Reference Range Interpretation Comments Albumin Lvl (test code = Albumin Lvl) 2.9 3.5-5.0 [place] 570323-02-21 12:50:00 Test Item Value Reference Range Interpretation Comments Globulin (test code = Globulin) 3.2 2.7-4.2 [place] [address]-02-21 12:50:00 Test Item Value Reference Range Interpretation Comments A/G Ratio (test code = A/G Ratio) 0.9 1 0.7-1.6 [place] [address]-02-21 12:50:00 Test Item Value Reference Range Interpretation Comments ALT (test code = ALT) 16 See_Comment [Auto mated message] The system which ge nerated this result transmit sheba reference range : <=65. The reference range was not used to interpr et this result as edy l/abnormal. [place] [address]-02-21 12:50:00 Test Item Value Reference Range Interpretation Comments AST (test code = AST) 15 See_Comment [Auto mated message] The system which ge nerated this result transmit sheba reference range : <=37. The reference range was not used to interpr et this result as edy l/abnormal. [address]02-21 12:50:00 Test Item Value Reference Range Interpretation Comments Alk Phos (test code = Alk Phos) 96 39-136 [place] [address]-02-21 12:50:00 Test Item Value Reference Range Interpretation Comments Bili Total (test code = Bili Total) 0.2 0.2-1.3 [place] [address]-02-21 12:50:00 Test Item Value Reference Range Interpretation Comments Bili Direct (test code no gt See_Comment [Aut omated message] The = Bili Direct) system which generated this result tra nsmitted reference range : <=0.3. The reference r christiano was not used to int erpret this result as edy l/abnormal. [place] [address]-02-21 12:50:00 Test Item Value Reference Range Interpretation Comments Bili Indirect Unable to See_Comment [Automated (test code = Bili Calculate message] T he system Indirect) which generated this result transmitted reference range : <=1.0. The reference range was not used to interpret this result as normal/abnormal . [place] [address]-02-21 12:50:00 Test Item Value Reference Range Interpretation Comments Ethanol Lvl (test code = Ethanol Lvl) no gt [place] 408583-02-21 12:50:00 Test Item Value Reference Range Interpretation Comments Etoh (%) (test code = Etoh (%)) no gt [facility] CenterKzvlxayCHXYIGPHE5853-93-64 12:50:00 Test Item Value Reference Range Interpretation Comments Lactic Acid Lvl (test code = Lactic 0.7 0.5-2.2 Acid Lvl) [facility] CenterHulluhyFVHUVXCMZ6110-96-06 12:50:00 Test Item Value Reference Range Interpretation Comments Total Protein (test code = Total 6.1 6.4-8.4 Protein) [facility] CenterYydzpivNGCANVHOY6890-30-95 12:50:00 Test Item Value Reference Range Interpretation Comments Albumin Lvl (test code = Albumin Lvl) 2.9 3.5-5.0 [place] 408583-02-21 12:50:00 Test Item Value Reference Range Interpretation Comments Globulin (test code = Globulin) 3.2 2.7-4.2 [place] 408583-02-21 12:50:00 Test Item Value Reference Range Interpretation Comments A/G Ratio (test code = A/G Ratio) 0.9 1 0.7-1.6 [place] 408583-02-21 12:50:00 Test Item Value Reference Range Interpretation Comments ALT (test code = ALT) 16 See_Comment [Auto mated message] The system which ge nerated this result transmit sheba reference range : <=65. The reference range was not used to interpr et this result as edy l/abnormal. [place] 408583-02-21 12:50:00 Test Item Value Reference Range Interpretation Comments AST (test code = AST) 15 See_Comment [Auto mated message] The system which ge nerated this result transmit sheba reference range : <=37. The reference range was not used to interpr et this result as edy l/abnormal. [facility] CenterRpkfdcbKHJHRJGKT0101-01-99 12:50:00 Test Item Value Reference Range Interpretation Comments Alk Phos (test code = Alk Phos) 96 39-136 [place] 408583-02-21 12:50:00 Test Item Value Reference Range Interpretation Comments Bili Total (test code = Bili Total) 0.2 0.2-1.3 [place] 408583-02-21 12:50:00 Test Item Value Reference Range Interpretation Comments Bili Direct (test code no gt See_Comment [Aut omated message] The = Bili Direct) system which generated this result tra nsmitted reference range : <=0.3. The reference r christiano was not used to int erpret this result as edy l/abnormal. [facility] CenterNhuaeyiBINUXENRW2391-81-29 12:50:00 Test Item Value Reference Range Interpretation Comments Bili Indirect Unable to See_Comment [Automated (test code = Bili Calculate message] T he system Indirect) which generated this result transmitted reference range : <=1.0. The reference range was not used to interpret this result as normal/abnormal . [facility] CenterIshzlfvJWIBGNNAM3361-83-35 12:50:00 Test Item Value Reference Range Interpretation Comments HS Troponin I (test code = HS Troponin 15 I) [facility] CenterCoimvtsJFAGNRJRK6494-25-59 12:50:00 Test Item Value Reference Range Interpretation Comments pH Justin (test code = pH Justin) 7.35 1 7.28-7.42 [place] 408583-02-21 12:50:00 Test Item Value Reference Range Interpretation Comments pCO2 Justin (test code = pCO2 Justin) 55 38-52 [facility] CenterKgxkwgiYYEPPESHE9443-67-81 12:50:00 Test Item Value Reference Range Interpretation Comments pO2 Justin (test code = pO2 Justin) 43 20-49 [facility] CenterSteakvvAWUPLNDAX4117-73-28 12:50:00 Test Item Value Reference Range Interpretation Comments HCO3 Justin (test code = HCO3 Justin) 30 22-26 [place] 408583-02-21 12:50:00 Test Item Value Reference Range Interpretation Comments BE Justin (test code = BE Justin) 3 -2-2 [facility] CenterPnpdsasHOJFXBENJ8239-76-10 12:50:00 Test Item Value Reference Range Interpretation Comments O2 Sat Justin (calc) (test code = O2 Sat 75.9 40.0-70.0 Justin (calc)) [facility] CenterUhjwgqmCLKIQQYOT0053-21-94 12:50:00 Test Item Value Reference Range Interpretation Comments Temp Justin (test code = Temp Justin) 37.0 [place] 744043-02-21 12:50:00 Test Item Value Reference Range Interpretation Comments ACT (TEG) Rapid (test code = ACT (TEG) 113 s 86-118 Rapid) [facility]CwpaxzqOZLSFDIORI5374-18-76 12:50:00 Test Item Value Reference Range Interpretation Comments Split Point Rapid (test code = Split 0.6 min Point Rapid) [facility] HospitalDplnwukLDATSHXHZD6114-61-67 12:50:00 Test Item Value Reference Range Interpretation Comments R-time Rapid (test code = R-time 0.7 min 0.4-0.7 Rapid) [place] 744043-02-21 12:50:00 Test Item Value Reference Range Interpretation Comments K-time Rapid (test code = K-time 1.1 min 0.6-2.3 Rapid) [place] [address]-02-21 12:50:00 Test Item Value Reference Range Interpretation Comments Angle Rapid (test code = Angle 78 degrees 64-80 Rapid) [place] [address]-02-21 12:50:00 Test Item Value Reference Range Interpretation Comments Max Amplitude Rapid (test code = Max 65 mm 52-71 Amplitude Rapid) [place] [address]-02-21 12:50:00 Test Item Value Reference Range Interpretation Comments G-value Rapid (test code = G-value 9.2 5.0-11.6 Rapid) [place] [address]-02-21 12:50:00 Test Item Value Reference Range Interpretation Comments Estimated % Lysis Rapid 0.0 See_Comment [Au tomated message] The (test code = Estimated syste m which generated % Lysis Rapid) this result t ransmitted reference range : <=7.5. The reference r christiano was not used to int erpret this result as normal/abnormal . [facility] HospitalCqficykUPLIGENRPO3631-69-38 12:50:00 Test Item Value Reference Range Interpretation Comments Plt Morph (test code = See Note 1(11/21/22 Plt Morph) 6:50 AM) [place] 744043-02-21 12:50:00 Test Item Value Reference Range Interpretation Comments Stomatocyte (test code = Stomatocyte) slight [place] [address]-02-21 12:50:00 Test Item Value Reference Range Interpretation Comments WBC X 10x3 (test code = WBC X 10x3) 8.7 3.7-10.4 [place] [address]-02-21 12:50:00 Test Item Value Reference Range Interpretation Comments RBC X 10x6 (test code = RBC X 10x6) 3.56 4.20-5.40 [place] [address]-02-21 12:50:00 Test Item Value Reference Range Interpretation Comments Hgb (test code = Hgb) 10.4 12.0-16.0 [place] [address]-02-21 12:50:00 Test Item Value Reference Range Interpretation Comments Hct (test code = Hct) 32.3 36.0-48.0 [place] 744043-02-21 12:50:00 Test Item Value Reference Range Interpretation Comments MCV (test code = MCV) 90.8 80.0-98.0 [place] 744043-02-21 12:50:00 Test Item Value Reference Range Interpretation Comments MCH (test code = MCH) 29.3 pg 27.0-31.0 [place] 744043-02-21 12:50:00 Test Item Value Reference Range Interpretation Comments MCHC (test code = MCHC) 32.2 32.0-36.0 [place] 744043-02-21 12:50:00 Test Item Value Reference Range Interpretation Comments RDW (test code = RDW) 13.7 11.5-14.5 [place] 744043-02-21 12:50:00 Test Item Value Reference Range Interpretation Comments Platelet (test code = Platelet) 137 133-450 [place] 744043-02-21 12:50:00 Test Item Value Reference Range Interpretation Comments MPV (test code = MPV) 7.9 7.4-10.4 [place] [address]-02-21 12:50:00 Test Item Value Reference Range Interpretation Comments ACT (TEG) Rapid (test code = ACT (TEG) 113 s 86-118 Rapid) [place] 744043-02-21 12:50:00 Test Item Value Reference Range Interpretation Comments Split Point Rapid (test code = Split 0.6 min Point Rapid) [place] [address]-02-21 12:50:00 Test Item Value Reference Range Interpretation Comments R-time Rapid (test code = R-time 0.7 min 0.4-0.7 Rapid) [place] [address]-02-21 12:50:00 Test Item Value Reference Range Interpretation Comments K-time Rapid (test code = K-time 1.1 min 0.6-2.3 Rapid) [place] [address]-02-21 12:50:00 Test Item Value Reference Range Interpretation Comments Angle Rapid (test code = Angle 78 degrees 64-80 Rapid) [place] 744043-02-21 12:50:00 Test Item Value Reference Range Interpretation Comments Max Amplitude Rapid (test code = Max 65 mm 52-71 Amplitude Rapid) [place] [address]-02-21 12:50:00 Test Item Value Reference Range Interpretation Comments G-value Rapid (test code = G-value 9.2 5.0-11.6 Rapid) [place] [address]-02-21 12:50:00 Test Item Value Reference Range Interpretation Comments Estimated % Lysis Rapid 0.0 See_Comment [Au tomated message] The (test code = Estimated syste m which generated % Lysis Rapid) this result t ransmitted reference range : <=7.5. The reference r christiano was not used to int erpret this result as normal/abnormal . [place] 744043-02-21 12:50:00 Test Item Value Reference Range Interpretation Comments Plt Morph (test code = See Note 1(11/21/22 Plt Morph) 6:50 AM) [place] 744043-02-21 12:50:00 Test Item Value Reference Range Interpretation Comments Segs (test code = Segs) 64.1 45.0-75.0 [place] 744043-02-21 12:50:00 Test Item Value Reference Range Interpretation Comments Lymphocytes (test code = Lymphocytes) 22.0 20.0-40.0 [place] 744043-02-21 12:50:00 Test Item Value Reference Range Interpretation Comments Monocytes (test code = Monocytes) 8.3 2.0-12.0 [place] [address]-02-21 12:50:00 Test Item Value Reference Range Interpretation Comments Eosinophils (test code = 4.7 See_Comment [A utomated message] The Eosinophils) system which ge nerated this result tra nsmitted reference range : <=4.0. The reference r christiano was not used to int erpret this result as normal/abnormal . [place] 744043-02-21 12:50:00 Test Item Value Reference Range Interpretation Comments Basophils (test code = 0.9 See_Comment [Aut omated message] The Basophils) system which ge nerated this result tra nsmitted reference range : <=1.0. The reference r christiano was not used to int erpret this result as normal/abnormal . [facility] HospitalPoanimdOAQHECACWM0347-55-28 12:50:00 Test Item Value Reference Range Interpretation Comments Neutrophils # (test code = Neutrophils 5.6 1.5-8.1 #) [facility] HospitalDdtzgggLRHEFSMAAH8426-19-91 12:50:00 Test Item Value Reference Range Interpretation Comments Lymphocytes # (test code = Lymphocytes 1.9 1.0-5.5 #) [facility] HospitalSyvuljhKUHHWGOZSG9082-56-42 12:50:00 Test Item Value Reference Range Interpretation Comments Monocytes # (test code 0.7 See_Comment [Aut omated message] The = Monocytes #) system which generated this result tra nsmitted reference range : <=0.8. The reference r christiano was not used to int erpret this result as normal/abnormal . [facility] HospitalNbcokwtUCEXCAZAEW9555-62-47 12:50:00 Test Item Value Reference Range Interpretation Comments Eosinophils # (test code 0.4 See_Comment [A utomated message] The = Eosinophils #) system whic h generated this result tra nsmitted reference range : <=0.5. The reference r christiano was not used to int erpret this result as normal/abnormal . [facility] HospitalHthlplmIAFBJQPRXK4730-79-71 12:50:00 Test Item Value Reference Range Interpretation Comments Basophils # (test code 0.1 See_Comment [Aut omated message] The = Basophils #) system which generated this result tra nsmitted reference range : <=0.2. The reference r christiano was not used to int erpret this result as normal/abnormal . [facility] HospitalEtrwgwoPICYBUXAID1286-41-16 12:50:00 Test Item Value Reference Range Interpretation Comments Stomatocyte (test code = Stomatocyte) slight [facility]udaMicqkfdZCHUVHRZSH4055-78-35 12:50:00 Test Item Value Reference Range Interpretation Comments Ethanol Lvl (test code = Ethanol Lvl) no gt [facility] BudaQvyezoqYPKPIXDCJE5987-05-36 12:50:00 Test Item Value Reference Range Interpretation Comments Etoh (%) (test code = Etoh (%)) no gt [facility] QVCGRUO5638-08-49 12:50:00 Test Item Value Reference Range Interpretation Comments ABO/Rh (test code = ABO/Rh) O POS [facility] [employer] [id number] 12:50:00 Test Item Value Reference Range Interpretation Comments Antibody Scrn (test Negative (11/21/22 6:50 code = Antibody Scrn) AM) [facility] [employer] ILGQRIY4138-02-02 12:50:00 Test Item Value Reference Range Interpretation Comments ABO/Rh (test code = ABO/Rh) O POS [facility] [employer] CUWCMGL6556-09-73 12:50:00 Test Item Value Reference Range Interpretation Comments Antibody Scrn (test Negative (11/21/22 6:50 code = Antibody Scrn) AM) [facility] YlopoCARDIAC FIKRURP0921-28-29 12:50:00 Test Item Value Reference Range Interpretation Comments HS Troponin I (test code = HS Troponin 15 I) [facility] [employer] LMZSK1826-09-25 12:50:00 Test Item Value Reference Range Interpretation Comments Glucose Lvl (test code = Glucose Lvl) 99 70-99 [facility] [employer] QAUVV5338-46-82 12:50:00 Test Item Value Reference Range Interpretation Comments BUN (test code = BUN) 38 7-22 [facility] Echovox2023-02-21 12:50:00 Test Item Value Reference Range Interpretation Comments Creatinine Lvl (test code = Creatinine 2.38 0.50-1.40 Lvl) [facility] [employer] [id number] 12:50:00 Test Item Value Reference Range Interpretation Comments Sodium Lvl (test code = Sodium Lvl) 140 135-145 [facility] Echovox2023-02-21 12:50:00 Test Item Value Reference Range Interpretation Comments Potassium Lvl (test code = Potassium 3.9 3.5-5.1 Lvl) APROOFED2023-02-21 12:50:00 Test Item Value Reference Range Interpretation Comments Chloride Lvl (test code = Chloride Lvl) 107 95-109 [facility] Echovox2023-02-21 12:50:00 Test Item Value Reference Range Interpretation Comments CO2 (test code = CO2) 27 24-32 [facility] Echovox2023-02-21 12:50:00 Test Item Value Reference Range Interpretation Comments Calcium Lvl (test code = Calcium Lvl) 8.1 8.5-10.5 [place] 570323-02-21 12:50:00 Test Item Value Reference Range Interpretation Comments AGAP (test code = AGAP) 9.9 10.0-20.0 [place] [address]-02-21 12:50:00 Test Item Value Reference Range Interpretation Comments eGFR (test code = eGFR) 20 [place] 570323-02-21 12:50:00 Test Item Value Reference Range Interpretation Comments Lactic Acid Lvl (test code = Lactic 0.7 0.5-2.2 Acid Lvl) [place] 570323-02-21 12:50:00 Test Item Value Reference Range Interpretation Comments Total Protein (test code = Total 6.1 6.4-8.4 Protein) [place] 570323-02-21 12:50:00 Test Item Value Reference Range Interpretation Comments Albumin Lvl (test code = Albumin Lvl) 2.9 3.5-5.0 [place] 570323-02-21 12:50:00 Test Item Value Reference Range Interpretation Comments Globulin (test code = Globulin) 3.2 2.7-4.2 [place] 570323-02-21 12:50:00 Test Item Value Reference Range Interpretation Comments A/G Ratio (test code = A/G Ratio) 0.9 1 0.7-1.6 [place] 570323-02-21 12:50:00 Test Item Value Reference Range Interpretation Comments ALT (test code = ALT) 16 See_Comment [Auto mated message] The system which ge nerated this result transmit sheba reference range : <=65. The reference range was not used to interpr et this result as edy l/abnormal. [place] 570323-02-21 12:50:00 Test Item Value Reference Range Interpretation Comments AST (test code = AST) 15 See_Comment [Auto mated message] The system which ge nerated this result transmit sheba reference range : <=37. The reference range was not used to interpr et this result as edy l/abnormal. [place] 570323-02-21 12:50:00 Test Item Value Reference Range Interpretation Comments Alk Phos (test code = Alk Phos) 96 39-136 [place] 570323-02-21 12:50:00 Test Item Value Reference Range Interpretation Comments Bili Total (test code = Bili Total) 0.2 0.2-1.3 [facility] [id number] 12:50:00 Test Item Value Reference Range Interpretation Comments Bili Direct (test code no gt See_Comment [Aut omated message] The = Bili Direct) system which generated this result tra nsmitted reference range : <=0.3. The reference r christiano was not used to int erpret this result as edy l/abnormal. [facility] [id number] 12:50:00 Test Item Value Reference Range Interpretation Comments Bili Indirect Unable to See_Comment [Automated (test code = Bili Calculate message] T he system Indirect) which generated this result transmitted reference range : <=1.0. The reference range was not used to interpret this result as normal/abnormal . [facility] CenterDbofwohDEZQIYXHK8575-36-34 12:50:00 Test Item Value Reference Range Interpretation Comments Ethanol Lvl (test code = Ethanol Lvl) no gt [facility] CenterScfrbcxMIPAKOGYE1957-65-52 12:50:00 Test Item Value Reference Range Interpretation Comments Etoh (%) (test code = Etoh (%)) no gt [facility] CenterCavjlfwWMMXLPZNN2236-56-66 12:50:00 Test Item Value Reference Range Interpretation Comments Lactic Acid Lvl (test code = Lactic 0.7 0.5-2.2 Acid Lvl) [facility] CenterOvplucfMOATMEUVS0485-72-56 12:50:00 Test Item Value Reference Range Interpretation Comments Total Protein (test code = Total 6.1 6.4-8.4 Protein) [facility] CenterHwmcpqpFKKRCFUWH3355-87-83 12:50:00 Test Item Value Reference Range Interpretation Comments Albumin Lvl (test code = Albumin Lvl) 2.9 3.5-5.0 [place] 408583-02-21 12:50:00 Test Item Value Reference Range Interpretation Comments Globulin (test code = Globulin) 3.2 2.7-4.2 [place] 408583-02-21 12:50:00 Test Item Value Reference Range Interpretation Comments A/G Ratio (test code = A/G Ratio) 0.9 1 0.7-1.6 [place] 408583-02-21 12:50:00 Test Item Value Reference Range Interpretation Comments ALT (test code = ALT) 16 See_Comment [Auto mated message] The system which ge nerated this result transmit sheba reference range : <=65. The reference range was not used to interpr et this result as edy l/abnormal. [facility] OgwetgaQMRRWWSFX9425-84-84 12:50:00 Test Item Value Reference Range Interpretation Comments AST (test code = AST) 15 See_Comment [Auto mated message] The system which ge nerated this result transmit sheba reference range : <=37. The reference range was not used to interpr et this result as edy l/abnormal. [facility] MuzhamfQLZRSZGFN1248-38-92 12:50:00 Test Item Value Reference Range Interpretation Comments Alk Phos (test code = Alk Phos) 96 39-136 [facility] ChildrenTfygkfjBJNHFAQDH5070-42-39 12:50:00 Test Item Value Reference Range Interpretation Comments Bili Total (test code = Bili Total) 0.2 0.2-1.3 [facility] ChildrenIljnxebPFSFFLUIJ2659-27-13 12:50:00 Test Item Value Reference Range Interpretation Comments Bili Direct (test code no gt See_Comment [Aut omated message] The = Bili Direct) system which generated this result tra nsmitted reference range : <=0.3. The reference r christiano was not used to int erpret this result as edy l/abnormal. [facility] ChildrenPynhcgzZYMAOVNEU3427-80-91 12:50:00 Test Item Value Reference Range Interpretation Comments Bili Indirect Unable to See_Comment [Automated (test code = Bili Calculate message] T he system Indirect) which generated this result transmitted reference range : <=1.0. The reference range was not used to interpret this result as normal/abnormal . [facility] ChildrenUsrwwcmMLWUQECTH3034-70-92 12:50:00 Test Item Value Reference Range Interpretation Comments HS Troponin I (test code = HS Troponin 15 I) [facility] ChildrenNznfrwoVEUDMNSYS0637-11-21 12:50:00 Test Item Value Reference Range Interpretation Comments pH Justin (test code = pH Justin) 7.35 1 7.28-7.42 [facility] ChildrenOccfemjCSFRIUCKP1151-12-72 12:50:00 Test Item Value Reference Range Interpretation Comments pCO2 Justin (test code = pCO2 Justin) 55 38-52 [facility] ChildrenXuxzbamLESJRLULB8090-50-99 12:50:00 Test Item Value Reference Range Interpretation Comments pO2 Justin (test code = pO2 Justin) 43 20-49 [facility] CenterMmhmruoRIDETAJKF5378-62-69 12:50:00 Test Item Value Reference Range Interpretation Comments HCO3 Justin (test code = HCO3 Justin) 30 22- [place] 408583-02-21 12:50:00 Test Item Value Reference Range Interpretation Comments BE Justin (test code = BE Justin) 3 -2-2 [place] 408583-02-21 12:50:00 Test Item Value Reference Range Interpretation Comments O2 Sat Justin (calc) (test code = O2 Sat 75.9 40.0-70.0 Justin (calc)) [facility] CenterLmxqxvlBJXUJKOIE3566-53-08 12:50:00 Test Item Value Reference Range Interpretation Comments Temp Justin (test code = Temp Justin) 37.0 [facility] HospitalUvxjynkWDYUTTXGRG1720-29-10 12:50:00 Test Item Value Reference Range Interpretation Comments ACT (TEG) Rapid (test code = ACT (TEG) 113 s 86-118 Rapid) [place] 744043-02-21 12:50:00 Test Item Value Reference Range Interpretation Comments Split Point Rapid (test code = Split 0.6 min Point Rapid) [place] 744043-02-21 12:50:00 Test Item Value Reference Range Interpretation Comments R-time Rapid (test code = R-time 0.7 min 0.4-0.7 Rapid) [place] 744043-02-21 12:50:00 Test Item Value Reference Range Interpretation Comments K-time Rapid (test code = K-time 1.1 min 0.6-2.3 Rapid) [place] 744043-02-21 12:50:00 Test Item Value Reference Range Interpretation Comments Angle Rapid (test code = Angle 78 degrees 64-80 Rapid) [place] 744043-02-21 12:50:00 Test Item Value Reference Range Interpretation Comments Max Amplitude Rapid (test code = Max 65 mm 52-71 Amplitude Rapid) [place] 744043-02-21 12:50:00 Test Item Value Reference Range Interpretation Comments G-value Rapid (test code = G-value 9.2 5.0-11.6 Rapid) [place] 744043-02-21 12:50:00 Test Item Value Reference Range Interpretation Comments Estimated % Lysis Rapid 0.0 See_Comment [Au tomated message] The (test code = Estimated syste m which generated % Lysis Rapid) this result t ransmitted reference range : <=7.5. The reference r christiano was not used to int erpret this result as normal/abnormal . [place] 744043-02-21 12:50:00 Test Item Value Reference Range Interpretation Comments Plt Morph (test code = See Note 1(11/21/22 Plt Morph) 6:50 AM) [place] 744043-02-21 12:50:00 Test Item Value Reference Range Interpretation Comments Stomatocyte (test code = Stomatocyte) slight [place] 744043-02-21 12:50:00 Test Item Value Reference Range Interpretation Comments WBC X 10x3 (test code = WBC X 10x3) 8.7 3.7-10.4 [place] 744043-02-21 12:50:00 Test Item Value Reference Range Interpretation Comments RBC X 10x6 (test code = RBC X 10x6) 3.56 4.20-5.40 [place] 744043-02-21 12:50:00 Test Item Value Reference Range Interpretation Comments Hgb (test code = Hgb) 10.4 12.0-16.0 [place] 744043-02-21 12:50:00 Test Item Value Reference Range Interpretation Comments Hct (test code = Hct) 32.3 36.0-48.0 [place] 744043-02-21 12:50:00 Test Item Value Reference Range Interpretation Comments MCV (test code = MCV) 90.8 80.0-98.0 [place] [address]-02-21 12:50:00 Test Item Value Reference Range Interpretation Comments MCH (test code = MCH) 29.3 pg 27.0-31.0 [place] [address]-02-21 12:50:00 Test Item Value Reference Range Interpretation Comments MCHC (test code = MCHC) 32.2 32.0-36.0 [place] [address]-02-21 12:50:00 Test Item Value Reference Range Interpretation Comments RDW (test code = RDW) 13.7 11.5-14.5 [place] [address]-02-21 12:50:00 Test Item Value Reference Range Interpretation Comments Platelet (test code = Platelet) 137 133-450 [facility] HospitalDoxvcsyXZVTRVABST4829-59-47 12:50:00 Test Item Value Reference Range Interpretation Comments MPV (test code = MPV) 7.9 7.4-10.4 [place] 744043-02-21 12:50:00 Test Item Value Reference Range Interpretation Comments ACT (TEG) Rapid (test code = ACT (TEG) 113 s 86-118 Rapid) [place] 744043-02-21 12:50:00 Test Item Value Reference Range Interpretation Comments Split Point Rapid (test code = Split 0.6 min Point Rapid) [place] 744043-02-21 12:50:00 Test Item Value Reference Range Interpretation Comments R-time Rapid (test code = R-time 0.7 min 0.4-0.7 Rapid) [place] 744043-02-21 12:50:00 Test Item Value Reference Range Interpretation Comments K-time Rapid (test code = K-time 1.1 min 0.6-2.3 Rapid) [place] 744043-02-21 12:50:00 Test Item Value Reference Range Interpretation Comments Angle Rapid (test code = Angle 78 degrees 64-80 Rapid) [facility] HospitalLkviwajUCFNBVXZUL1360-66-27 12:50:00 Test Item Value Reference Range Interpretation Comments Max Amplitude Rapid (test code = Max 65 mm 52-71 Amplitude Rapid) [place] 744043-02-21 12:50:00 Test Item Value Reference Range Interpretation Comments G-value Rapid (test code = G-value 9.2 5.0-11.6 Rapid) [place] 744043-02-21 12:50:00 Test Item Value Reference Range Interpretation Comments Estimated % Lysis Rapid 0.0 See_Comment [Au tomated message] The (test code = Estimated syste m which generated % Lysis Rapid) this result t ransmitted reference range : <=7.5. The reference r christiano was not used to int erpret this result as normal/abnormal . [facility] HospitalUpprtuwIJFJLGYCRZ4910-55-45 12:50:00 Test Item Value Reference Range Interpretation Comments Plt Morph (test code = See Note 1(11/21/22 Plt Morph) 6:50 AM) [place] 744043-02-21 12:50:00 Test Item Value Reference Range Interpretation Comments Segs (test code = Segs) 64.1 45.0-75.0 [place] [address]-02-21 12:50:00 Test Item Value Reference Range Interpretation Comments Lymphocytes (test code = Lymphocytes) 22.0 20.0-40.0 [place] [address]-02-21 12:50:00 Test Item Value Reference Range Interpretation Comments Monocytes (test code = Monocytes) 8.3 2.0-12.0 [place] [address]-02-21 12:50:00 Test Item Value Reference Range Interpretation Comments Eosinophils (test code = 4.7 See_Comment [A utomated message] The Eosinophils) system which ge nerated this result tra nsmitted reference range : <=4.0. The reference r christiano was not used to int erpret this result as normal/abnormal . [place] [address]-02-21 12:50:00 Test Item Value Reference Range Interpretation Comments Basophils (test code = 0.9 See_Comment [Aut omated message] The Basophils) system which ge nerated this result tra nsmitted reference range : <=1.0. The reference r christiano was not used to int erpret this result as normal/abnormal . [place] [address]-02-21 12:50:00 Test Item Value Reference Range Interpretation Comments Neutrophils # (test code = Neutrophils 5.6 1.5-8.1 #) [place] [address]-02-21 12:50:00 Test Item Value Reference Range Interpretation Comments Lymphocytes # (test code = Lymphocytes 1.9 1.0-5.5 #) [place] [address]-02-21 12:50:00 Test Item Value Reference Range Interpretation Comments Monocytes # (test code 0.7 See_Comment [Aut omated message] The = Monocytes #) system which generated this result tra nsmitted reference range : <=0.8. The reference r christiano was not used to int erpret this result as normal/abnormal . [place] [address]-02-21 12:50:00 Test Item Value Reference Range Interpretation Comments Eosinophils # (test code 0.4 See_Comment [A utomated message] The = Eosinophils #) system whic h generated this result tra nsmitted reference range : <=0.5. The reference r christiano was not used to int erpret this result as normal/abnormal . [facility] [id number] 12:50:00 Test Item Value Reference Range Interpretation Comments Basophils # (test code 0.1 See_Comment [Aut omated message] The = Basophils #) system which generated this result tra nsmitted reference range : <=0.2. The reference r christiano was not used to int erpret this result as normal/abnormal . [facility] CrgqrqaVJZCDFIIOP1448-87-04 12:50:00 Test Item Value Reference Range Interpretation Comments Stomatocyte (test code = Stomatocyte) slight [facility] NkpaavqUAEVOLYQFT9263-50-86 12:50:00 Test Item Value Reference Range Interpretation Comments Ethanol Lvl (test code = Ethanol Lvl) no gt [facility] QpbivhzBVFUPDNUFC1220-14-80 12:50:00 Test Item Value Reference Range Interpretation Comments Etoh (%) (test code = Etoh (%)) no gt [facility] [employer] [id number] 12:50:00 Test Item Value Reference Range Interpretation Comments ABO/Rh (test code = ABO/Rh) O [employer] [id number] 12:50:00 Test Item Value Reference Range Interpretation Comments Antibody Scrn (test Negative (11/21/22 6:50 code = Antibody Scrn) AM) [facility] [employer] [id number] 12:50:00 Test Item Value Reference Range Interpretation Comments ABO/Rh (test code = ABO/Rh) [employer] [id number] 12:50:00 Test Item Value Reference Range Interpretation Comments Antibody Scrn (test Negative (11/21/22 6:50 code = Antibody Scrn) AM) [facility] YlopoCARDIAC [id number] 12:50:00 Test Item Value Reference Range Interpretation Comments HS Troponin I (test code = HS Troponin 15 I) [facility] [employer] [id number] 12:50:00 Test Item Value Reference Range Interpretation Comments Glucose Lvl (test code = Glucose Lvl) 99 70-99 [facility] [employer] [id number] 12:50:00 Test Item Value Reference Range Interpretation Comments BUN (test code = BUN) 38 7-22 [facility]2023-02-21 12:50:00 Test Item Value Reference Range Interpretation Comments Creatinine Lvl (test code = Creatinine 2.38 0.50-1.40 Lvl) [facility]2023-02-21 12:50:00 Test Item Value Reference Range Interpretation Comments Sodium Lvl (test code = Sodium Lvl) 140 135-145 [place] 570323-02-21 12:50:00 Test Item Value Reference Range Interpretation Comments Potassium Lvl (test code = Potassium 3.9 3.5-5.1 Lvl) [facility]2023-02-21 12:50:00 Test Item Value Reference Range Interpretation Comments Chloride Lvl (test code = Chloride Lvl) 107 95-109 [place] 570323-02-21 12:50:00 Test Item Value Reference Range Interpretation Comments CO2 (test code = CO2) 27 24-32 [place] 570323-02-21 12:50:00 Test Item Value Reference Range Interpretation Comments Calcium Lvl (test code = Calcium Lvl) 8.1 8.5-10.5 [place] 570323-02-21 12:50:00 Test Item Value Reference Range Interpretation Comments AGAP (test code = AGAP) 9.9 10.0-20.0 [facility]2023-02-21 12:50:00 Test Item Value Reference Range Interpretation Comments eGFR (test code = eGFR) 20 [facility]2023-02-21 12:50:00 Test Item Value Reference Range Interpretation Comments Lactic Acid Lvl (test code = Lactic 0.7 0.5-2.2 Acid Lvl) [facility]2023-02-21 12:50:00 Test Item Value Reference Range Interpretation Comments Total Protein (test code = Total 6.1 6.4-8.4 Protein) [place] [address]323-02-21 12:50:00 Test Item Value Reference Range Interpretation Comments Albumin Lvl (test code = Albumin Lvl) 2.9 3.5-5.0 [place] 570323-02-21 12:50:00 Test Item Value Reference Range Interpretation Comments Globulin (test code = Globulin) 3.2 2.7-4.2 [place] [address]-02-21 12:50:00 Test Item Value Reference Range Interpretation Comments A/G Ratio (test code = A/G Ratio) 0.9 1 0.7-1.6 [place] [address]-02-21 12:50:00 Test Item Value Reference Range Interpretation Comments ALT (test code = ALT) 16 See_Comment [Auto mated message] The system which ge nerated this result transmit sheba reference range : <=65. The reference range was not used to interpr et this result as edy l/abnormal. [place] [address]-02-21 12:50:00 Test Item Value Reference Range Interpretation Comments AST (test code = AST) 15 See_Comment [Auto mated message] The system which ge nerated this result transmit sheba reference range : <=37. The reference range was not used to interpr et this result as edy l/abnormal. [address]02-21 12:50:00 Test Item Value Reference Range Interpretation Comments Alk Phos (test code = Alk Phos) 96 39-136 [place] [address]-02-21 12:50:00 Test Item Value Reference Range Interpretation Comments Bili Total (test code = Bili Total) 0.2 0.2-1.3 [place] [address]-02-21 12:50:00 Test Item Value Reference Range Interpretation Comments Bili Direct (test code no gt See_Comment [Aut omated message] The = Bili Direct) system which generated this result tra nsmitted reference range : <=0.3. The reference r christiano was not used to int erpret this result as edy l/abnormal. [place] [address]-02-21 12:50:00 Test Item Value Reference Range Interpretation Comments Bili Indirect Unable to See_Comment [Automated (test code = Bili Calculate message] T he system Indirect) which generated this result transmitted reference range : <=1.0. The reference range was not used to interpret this result as normal/abnormal . [place] [address]-02-21 12:50:00 Test Item Value Reference Range Interpretation Comments Ethanol Lvl (test code = Ethanol Lvl) no gt [place] [address]-02-21 12:50:00 Test Item Value Reference Range Interpretation Comments Etoh (%) (test code = Etoh (%)) no gt [facility] CenterIuzhotyWTIBENDMZ5861-31-53 12:50:00 Test Item Value Reference Range Interpretation Comments Lactic Acid Lvl (test code = Lactic 0.7 0.5-2.2 Acid Lvl) [facility] CenterEwqgqajECTYFYBAK4362-00-82 12:50:00 Test Item Value Reference Range Interpretation Comments Total Protein (test code = Total 6.1 6.4-8.4 Protein) [facility] CenterHhuwfzsBOJCWVFPD7639-51-82 12:50:00 Test Item Value Reference Range Interpretation Comments Albumin Lvl (test code = Albumin Lvl) 2.9 3.5-5.0 [place] 408583-02-21 12:50:00 Test Item Value Reference Range Interpretation Comments Globulin (test code = Globulin) 3.2 2.7-4.2 [place] 408583-02-21 12:50:00 Test Item Value Reference Range Interpretation Comments A/G Ratio (test code = A/G Ratio) 0.9 1 0.7-1.6 [place] [address]-02-21 12:50:00 Test Item Value Reference Range Interpretation Comments ALT (test code = ALT) 16 See_Comment [Auto mated message] The system which ge nerated this result transmit sheba reference range : <=65. The reference range was not used to interpr et this result as edy l/abnormal. [facility] CenterCjvrtznDUQONGFHB4523-69-55 12:50:00 Test Item Value Reference Range Interpretation Comments AST (test code = AST) 15 See_Comment [Auto mated message] The system which ge nerated this result transmit sheba reference range : <=37. The reference range was not used to interpr et this result as edy l/abnormal. [facility] CenterBmeubgmMJOZXAZOW1559-85-68 12:50:00 Test Item Value Reference Range Interpretation Comments Alk Phos (test code = Alk Phos) 96 39-136 [place] 408583-02-21 12:50:00 Test Item Value Reference Range Interpretation Comments Bili Total (test code = Bili Total) 0.2 0.2-1.3 [place] 408583-02-21 12:50:00 Test Item Value Reference Range Interpretation Comments Bili Direct (test code no gt See_Comment [Aut omated message] The = Bili Direct) system which generated this result tra nsmitted reference range : <=0.3. The reference r christiano was not used to int erpret this result as edy l/abnormal. [facility] CenterXvkvlndOUEJKJAWU4706-46-34 12:50:00 Test Item Value Reference Range Interpretation Comments Bili Indirect Unable to See_Comment [Automated (test code = Bili Calculate message] T he system Indirect) which generated this result transmitted reference range : <=1.0. The reference range was not used to interpret this result as normal/abnormal . [facility] CenterSbrqevjPOYJHRYIA1448-94-39 12:50:00 Test Item Value Reference Range Interpretation Comments HS Troponin I (test code = HS Troponin 15 I) [facility] CenterUxtdmkvGPZQVQPDZ7095-30-23 12:50:00 Test Item Value Reference Range Interpretation Comments pH Justin (test code = pH Justin) 7.35 1 7.28-7.42 [place] 408583-02-21 12:50:00 Test Item Value Reference Range Interpretation Comments pCO2 Justin (test code = pCO2 Justin) 55 38-52 [facility] CenterFynynfyXFTNYPQBS9290-82-41 12:50:00 Test Item Value Reference Range Interpretation Comments pO2 Justin (test code = pO2 Justin) 43 20-49 [place] 408583-02-21 12:50:00 Test Item Value Reference Range Interpretation Comments HCO3 Justin (test code = HCO3 Justin) 30 22-26 [place] 408583-02-21 12:50:00 Test Item Value Reference Range Interpretation Comments BE Justin (test code = BE Justin) 3 -2-2 [facility] CenterXlqbwnvCTBMYAIPQ0403-29-35 12:50:00 Test Item Value Reference Range Interpretation Comments O2 Sat Justin (calc) (test code = O2 Sat 75.9 40.0-70.0 Justin (calc)) [facility] CenterRtjnqexXLKWMELKW0080-01-37 12:50:00 Test Item Value Reference Range Interpretation Comments Temp Justin (test code = Temp Justin) 37.0 [place] 744043-02-21 12:50:00 Test Item Value Reference Range Interpretation Comments ACT (TEG) Rapid (test code = ACT (TEG) 113 s 86-118 Rapid) [facility]tf[facility]qqZYKLRIGJDX1601[facility]87-44 12:50:00 Test Item Value Reference Range Interpretation Comments Split Point Rapid (test code = Split 0.6 min Point Rapid) [place] [address]-02-21 12:50:00 Test Item Value Reference Range Interpretation Comments R-time Rapid (test code = R-time 0.7 min 0.4-0.7 Rapid) [place] [address]-02-21 12:50:00 Test Item Value Reference Range Interpretation Comments K-time Rapid (test code = K-time 1.1 min 0.6-2.3 Rapid) [place] [address]-02-21 12:50:00 Test Item Value Reference Range Interpretation Comments Angle Rapid (test code = Angle 78 degrees 64-80 Rapid) [place] [address]-02-21 12:50:00 Test Item Value Reference Range Interpretation Comments Max Amplitude Rapid (test code = Max 65 mm 52-71 Amplitude Rapid) [place] [address]-02-21 12:50:00 Test Item Value Reference Range Interpretation Comments G-value Rapid (test code = G-value 9.2 5.0-11.6 Rapid) [place] [address]-02-21 12:50:00 Test Item Value Reference Range Interpretation Comments Estimated % Lysis Rapid 0.0 See_Comment [Au tomated message] The (test code = Estimated syste m which generated % Lysis Rapid) this result t ransmitted reference range : <=7.5. The reference r christiano was not used to int erpret this result as normal/abnormal . [place] 744043-02-21 12:50:00 Test Item Value Reference Range Interpretation Comments Plt Morph (test code = See Note 1(11/21/22 Plt Morph) 6:50 AM) [place] 744043-02-21 12:50:00 Test Item Value Reference Range Interpretation Comments Stomatocyte (test code = Stomatocyte) slight [place] [address]-02-21 12:50:00 Test Item Value Reference Range Interpretation Comments WBC X 10x3 (test code = WBC X 10x3) 8.7 3.7-10.4 [place] [address]-02-21 12:50:00 Test Item Value Reference Range Interpretation Comments RBC X 10x6 (test code = RBC X 10x6) 3.56 4.20-5.40 [place] [address]-02-21 12:50:00 Test Item Value Reference Range Interpretation Comments Hgb (test code = Hgb) 10.4 12.0-16.0 [facility] HospitalXbnvbvcSCXOYZSLOT1636-91-46 12:50:00 Test Item Value Reference Range Interpretation Comments Hct (test code = Hct) 32.3 36.0-48.0 [facility] HospitalOpikchjOHBWFVRDTX4819-71-35 12:50:00 Test Item Value Reference Range Interpretation Comments MCV (test code = MCV) 90.8 80.0-98.0 [place] [address]-02-21 12:50:00 Test Item Value Reference Range Interpretation Comments MCH (test code = MCH) 29.3 pg 27.0-31.0 [facility] HospitalRuszpamXHIKMENYJF8457-34-70 12:50:00 Test Item Value Reference Range Interpretation Comments MCHC (test code = MCHC) 32.2 32.0-36.0 [facility] HospitalWtaoyhwDAJEXOKIMD4504-03-01 12:50:00 Test Item Value Reference Range Interpretation Comments RDW (test code = RDW) 13.7 11.5-14.5 [place] [address]-02-21 12:50:00 Test Item Value Reference Range Interpretation Comments Platelet (test code = Platelet) 137 133-450 [facility] HospitalIaqnjuqFXESEGRUML7514-27-53 12:50:00 Test Item Value Reference Range Interpretation Comments MPV (test code = MPV) 7.9 7.4-10.4 [place] [address]-02-21 12:50:00 Test Item Value Reference Range Interpretation Comments ACT (TEG) Rapid (test code = ACT (TEG) 113 s 86-118 Rapid) [place] [address]-02-21 12:50:00 Test Item Value Reference Range Interpretation Comments Split Point Rapid (test code = Split 0.6 min Point Rapid) [place] [address]-02-21 12:50:00 Test Item Value Reference Range Interpretation Comments R-time Rapid (test code = R-time 0.7 min 0.4-0.7 Rapid) [place] [address]-02-21 12:50:00 Test Item Value Reference Range Interpretation Comments K-time Rapid (test code = K-time 1.1 min 0.6-2.3 Rapid) [place] [address]-02-21 12:50:00 Test Item Value Reference Range Interpretation Comments Angle Rapid (test code = Angle 78 degrees 64-80 Rapid) [place] [address]-02-21 12:50:00 Test Item Value Reference Range Interpretation Comments Max Amplitude Rapid (test code = Max 65 mm 52-71 Amplitude Rapid) [place] [address]-02-21 12:50:00 Test Item Value Reference Range Interpretation Comments G-value Rapid (test code = G-value 9.2 5.0-11.6 Rapid) [place] [address]-02-21 12:50:00 Test Item Value Reference Range Interpretation Comments Estimated % Lysis Rapid 0.0 See_Comment [Au tomated message] The (test code = Estimated syste m which generated % Lysis Rapid) this result t ransmitted reference range : <=7.5. The reference r christiano was not used to int erpret this result as normal/abnormal . [place] [address]-02-21 12:50:00 Test Item Value Reference Range Interpretation Comments Plt Morph (test code = See Note 1(11/21/22 Plt Morph) 6:50 AM) [place] [address]-02-21 12:50:00 Test Item Value Reference Range Interpretation Comments Segs (test code = Segs) 64.1 45.0-75.0 [place] [address]-02-21 12:50:00 Test Item Value Reference Range Interpretation Comments Lymphocytes (test code = Lymphocytes) 22.0 20.0-40.0 [place] [address]-02-21 12:50:00 Test Item Value Reference Range Interpretation Comments Monocytes (test code = Monocytes) 8.3 2.0-12.0 [place] [address]-02-21 12:50:00 Test Item Value Reference Range Interpretation Comments Eosinophils (test code = 4.7 See_Comment [A utomated message] The Eosinophils) system which ge nerated this result tra nsmitted reference range : <=4.0. The reference r christiano was not used to int erpret this result as normal/abnormal . [place] [address]-02-21 12:50:00 Test Item Value Reference Range Interpretation Comments Basophils (test code = 0.9 See_Comment [Aut omated message] The Basophils) system which ge nerated this result tra nsmitted reference range : <=1.0. The reference r christiano was not used to int erpret this result as normal/abnormal . [facility] HospitalPwwgdamEMCTYVJUZR0947-68-44 12:50:00 Test Item Value Reference Range Interpretation Comments Neutrophils # (test code = Neutrophils 5.6 1.5-8.1 #) [facility] HospitalBsneelxRENELILMDV3051-98-15 12:50:00 Test Item Value Reference Range Interpretation Comments Lymphocytes # (test code = Lymphocytes 1.9 1.0-5.5 #) [facility] HospitalZljeotnNGJSDTYLJD4274-22-62 12:50:00 Test Item Value Reference Range Interpretation Comments Monocytes # (test code 0.7 See_Comment [Aut omated message] The = Monocytes #) system which generated this result tra nsmitted reference range : <=0.8. The reference r christiano was not used to int erpret this result as normal/abnormal . [facility] HospitalPdegxoeFFVWKZVUQD8113-81-53 12:50:00 Test Item Value Reference Range Interpretation Comments Eosinophils # (test code 0.4 See_Comment [A utomated message] The = Eosinophils #) system whic h generated this result tra nsmitted reference range : <=0.5. The reference r christiano was not used to int erpret this result as normal/abnormal . [facility] HospitalRocwvwjTBXRSMAPAP2607-58-70 12:50:00 Test Item Value Reference Range Interpretation Comments Basophils # (test code 0.1 See_Comment [Aut omated message] The = Basophils #) system which generated this result tra nsmitted reference range : <=0.2. The reference r christiano was not used to int erpret this result as normal/abnormal . [facility] HospitalDtzofvuETDKUPPMJU2014-51-98 12:50:00 Test Item Value Reference Range Interpretation Comments Stomatocyte (test code = Stomatocyte) slight [facility]udaDaauqevKMFXYPVBOS6536-91-95 12:50:00 Test Item Value Reference Range Interpretation Comments Ethanol Lvl (test code = Ethanol Lvl) no gt [facility]udaSmryxioZLJPPJYTCX3083-89-27 12:50:00 Test Item Value Reference Range Interpretation Comments Etoh (%) (test code = Etoh (%)) no gt [facility] VXZLEWE1102-46-66 12:50:00 Test Item Value Reference Range Interpretation Comments ABO/Rh (test code = ABO/Rh) O POS [facility] [employer] [id number] 12:50:00 Test Item Value Reference Range Interpretation Comments Antibody Scrn (test Negative (11/21/22 6:50 code = Antibody Scrn) AM) [facility] [employer] [id number] 12:50:00 Test Item Value Reference Range Interpretation Comments ABO/Rh (test code = ABO/Rh) O POS [facility] [employer] [id number] 12:50:00 Test Item Value Reference Range Interpretation Comments Antibody Scrn (test Negative (11/21/22 6:50 code = Antibody Scrn) AM) [facility] YlopoCARDIAC [id number] 12:50:00 Test Item Value Reference Range Interpretation Comments HS Troponin I (test code = HS Troponin 15 I) [facility] [employer] [id number] 12:50:00 Test Item Value Reference Range Interpretation Comments Glucose Lvl (test code = Glucose Lvl) 99 70-99 [facility] [employer] [id number] 12:50:00 Test Item Value Reference Range Interpretation Comments BUN (test code = BUN) 38 7-22 [employer] [id number] 12:50:00 Test Item Value Reference Range Interpretation Comments Creatinine Lvl (test code = Creatinine 2.38 0.50-1.40 Lvl) [facility] [id number] 12:50:00 Test Item Value Reference Range Interpretation Comments Sodium Lvl (test code = Sodium Lvl) 140 135-145 [facility] [id number] 12:50:00 Test Item Value Reference Range Interpretation Comments Potassium Lvl (test code = Potassium 3.9 3.5-5.1 Lvl) [facility] [id number] 12:50:00 Test Item Value Reference Range Interpretation Comments Chloride Lvl (test code = Chloride Lvl) 107 95-109 [facility] [id number] 12:50:00 Test Item Value Reference Range Interpretation Comments CO2 (test code = CO2) 27 24-32 [facility] [id number] 12:50:00 Test Item Value Reference Range Interpretation Comments Calcium Lvl (test code = Calcium Lvl) 8.1 8.5-10.5 [place] 570323-02-21 12:50:00 Test Item Value Reference Range Interpretation Comments AGAP (test code = AGAP) 9.9 10.0-20.0 [place] [address]-02-21 12:50:00 Test Item Value Reference Range Interpretation Comments eGFR (test code = eGFR) 20 [place] [address]-02-21 12:50:00 Test Item Value Reference Range Interpretation Comments Lactic Acid Lvl (test code = Lactic 0.7 0.5-2.2 Acid Lvl) [place] 570323-02-21 12:50:00 Test Item Value Reference Range Interpretation Comments Total Protein (test code = Total 6.1 6.4-8.4 Protein) [place] [address]-02-21 12:50:00 Test Item Value Reference Range Interpretation Comments Albumin Lvl (test code = Albumin Lvl) 2.9 3.5-5.0 [place] [address]-02-21 12:50:00 Test Item Value Reference Range Interpretation Comments Globulin (test code = Globulin) 3.2 2.7-4.2 [place] 570323-02-21 12:50:00 Test Item Value Reference Range Interpretation Comments A/G Ratio (test code = A/G Ratio) 0.9 1 0.7-1.6 [place] [address]-02-21 12:50:00 Test Item Value Reference Range Interpretation Comments ALT (test code = ALT) 16 See_Comment [Auto mated message] The system which ge nerated this result transmit sheba reference range : <=65. The reference range was not used to interpr et this result as edy l/abnormal. [place] [address]323-02-21 12:50:00 Test Item Value Reference Range Interpretation Comments AST (test code = AST) 15 See_Comment [Auto mated message] The system which ge nerated this result transmit sheba reference range : <=37. The reference range was not used to interpr et this result as edy l/abnormal. [place] [address]-02-21 12:50:00 Test Item Value Reference Range Interpretation Comments Alk Phos (test code = Alk Phos) 96 39-136 [place] 570323-02-21 12:50:00 Test Item Value Reference Range Interpretation Comments Bili Total (test code = Bili Total) 0.2 0.2-1.3 [facility] [id number] 12:50:00 Test Item Value Reference Range Interpretation Comments Bili Direct (test code no gt See_Comment [Aut omated message] The = Bili Direct) system which generated this result tra nsmitted reference range : <=0.3. The reference r christiano was not used to int erpret this result as edy l/abnormal. [facility] [id number] 12:50:00 Test Item Value Reference Range Interpretation Comments Bili Indirect Unable to See_Comment [Automated (test code = Bili Calculate message] T he system Indirect) which generated this result transmitted reference range : <=1.0. The reference range was not used to interpret this result as normal/abnormal . [facility] CenterGxwkbuxCLFZYVAGY0420-05-16 12:50:00 Test Item Value Reference Range Interpretation Comments Ethanol Lvl (test code = Ethanol Lvl) no gt [facility] CenterFepkeitEZQJBRIRP1730-76-14 12:50:00 Test Item Value Reference Range Interpretation Comments Etoh (%) (test code = Etoh (%)) no gt [place] 408583-02-21 12:50:00 Test Item Value Reference Range Interpretation Comments Lactic Acid Lvl (test code = Lactic 0.7 0.5-2.2 Acid Lvl) [facility] CenterQwjvmoqAHCXPBCFK8046-71-51 12:50:00 Test Item Value Reference Range Interpretation Comments Total Protein (test code = Total 6.1 6.4-8.4 Protein) [facility] CenterJakpiojMMVQLCFSY9904-56-08 12:50:00 Test Item Value Reference Range Interpretation Comments Albumin Lvl (test code = Albumin Lvl) 2.9 3.5-5.0 [place] 43196-02-21 12:50:00 Test Item Value Reference Range Interpretation Comments Globulin (test code = Globulin) 3.2 2.7-4.2 [place] 408583-02-21 12:50:00 Test Item Value Reference Range Interpretation Comments A/G Ratio (test code = A/G Ratio) 0.9 1 0.7-1.6 [place] 408583-02-21 12:50:00 Test Item Value Reference Range Interpretation Comments ALT (test code = ALT) 16 See_Comment [Auto mated message] The system which ge nerated this result transmit sheba reference range : <=65. The reference range was not used to interpr et this result as edy l/abnormal. [facility] ChildrenHhukycwMCYWINMMI2434-88-73 12:50:00 Test Item Value Reference Range Interpretation Comments AST (test code = AST) 15 See_Comment [Auto mated message] The system which ge nerated this result transmit sheba reference range : <=37. The reference range was not used to interpr et this result as edy l/abnormal. [facility] OrlfzimAHSKEFOQP5571-20-04 12:50:00 Test Item Value Reference Range Interpretation Comments Alk Phos (test code = Alk Phos) 96 39-136 [facility] ChildrenYiiwizpIAMFUOJCW7314-34-08 12:50:00 Test Item Value Reference Range Interpretation Comments Bili Total (test code = Bili Total) 0.2 0.2-1.3 [facility] ChildrenAjzeycwBOYTITTDW9032-91-80 12:50:00 Test Item Value Reference Range Interpretation Comments Bili Direct (test code no gt See_Comment [Aut omated message] The = Bili Direct) system which generated this result tra nsmitted reference range : <=0.3. The reference r christiano was not used to int erpret this result as edy l/abnormal. [facility] ChildrenHpbfwmgBKBOZFVWQ2601-91-59 12:50:00 Test Item Value Reference Range Interpretation Comments Bili Indirect Unable to See_Comment [Automated (test code = Bili Calculate message] T he system Indirect) which generated this result transmitted reference range : <=1.0. The reference range was not used to interpret this result as normal/abnormal . [facility] ChildrenBojjlrnLKISLHTIR9358-29-82 12:50:00 Test Item Value Reference Range Interpretation Comments HS Troponin I (test code = HS Troponin 15 I) [facility] ChildrenFaadbleZCLSABXWV0429-13-46 12:50:00 Test Item Value Reference Range Interpretation Comments pH Justin (test code = pH Justin) 7.35 1 7.28-7.42 [facility] ChildrenMxibmsgNRDCVKDFI1036-33-53 12:50:00 Test Item Value Reference Range Interpretation Comments pCO2 Justin (test code = pCO2 Justin) 55 38-52 [facility] ChildrenPuqchvtYKKGKNODM6040-62-44 12:50:00 Test Item Value Reference Range Interpretation Comments pO2 Justin (test code = pO2 Justin) 43 20-49 [facility] CenterDfgpjlfXLFKSVWUS8050-71-77 12:50:00 Test Item Value Reference Range Interpretation Comments HCO3 Justin (test code = HCO3 Justin) 30 22-26 [place] 408583-02-21 12:50:00 Test Item Value Reference Range Interpretation Comments BE Justin (test code = BE Justin) 3 -2-2 [place] 408583-02-21 12:50:00 Test Item Value Reference Range Interpretation Comments O2 Sat Justin (calc) (test code = O2 Sat 75.9 40.0-70.0 Justin (calc)) [facility] CenterMsuqdpeCDDGVRJQD9272-01-32 12:50:00 Test Item Value Reference Range Interpretation Comments Temp Justin (test code = Temp Justin) 37.0 [place] 744043-02-21 12:50:00 Test Item Value Reference Range Interpretation Comments ACT (TEG) Rapid (test code = ACT (TEG) 113 s 86-118 Rapid) [place] 744043-02-21 12:50:00 Test Item Value Reference Range Interpretation Comments Split Point Rapid (test code = Split 0.6 min Point Rapid) [facility] 12:50:00 Test Item Value Reference Range Interpretation Comments R-time Rapid (test code = R-time 0.7 min 0.4-0.7 Rapid) [place] 744043-02-21 12:50:00 Test Item Value Reference Range Interpretation Comments K-time Rapid (test code = K-time 1.1 min 0.6-2.3 Rapid) [place] 744043-02-21 12:50:00 Test Item Value Reference Range Interpretation Comments Angle Rapid (test code = Angle 78 degrees 64-80 Rapid) [place] 744043-02-21 12:50:00 Test Item Value Reference Range Interpretation Comments Max Amplitude Rapid (test code = Max 65 mm 52-71 Amplitude Rapid) [place] 744043-02-21 12:50:00 Test Item Value Reference Range Interpretation Comments G-value Rapid (test code = G-value 9.2 5.0-11.6 Rapid) [place] 744043-02-21 12:50:00 Test Item Value Reference Range Interpretation Comments Estimated % Lysis Rapid 0.0 See_Comment [Au tomated message] The (test code = Estimated syste m which generated % Lysis Rapid) this result t ransmitted reference range : <=7.5. The reference r christiano was not used to int erpret this result as normal/abnormal . [facility]UmrqgxyJQPCMIANXW6109-26-78 12:50:00 Test Item Value Reference Range Interpretation Comments Plt Morph (test code = See Note 1(11/21/22 Plt Morph) 6:50 AM) [place] 744043-02-21 12:50:00 Test Item Value Reference Range Interpretation Comments Stomatocyte (test code = Stomatocyte) slight [place] 744043-02-21 12:50:00 Test Item Value Reference Range Interpretation Comments WBC X 10x3 (test code = WBC X 10x3) 8.7 3.7-10.4 [place] 744043-02-21 12:50:00 Test Item Value Reference Range Interpretation Comments RBC X 10x6 (test code = RBC X 10x6) 3.56 4.20-5.40 [place] 744043-02-21 12:50:00 Test Item Value Reference Range Interpretation Comments Hgb (test code = Hgb) 10.4 12.0-16.0 [place] 744043-02-21 12:50:00 Test Item Value Reference Range Interpretation Comments Hct (test code = Hct) 32.3 36.0-48.0 [place] 744043-02-21 12:50:00 Test Item Value Reference Range Interpretation Comments MCV (test code = MCV) 90.8 80.0-98.0 [place] 744043-02-21 12:50:00 Test Item Value Reference Range Interpretation Comments MCH (test code = MCH) 29.3 pg 27.0-31.0 [place] [address]-02-21 12:50:00 Test Item Value Reference Range Interpretation Comments MCHC (test code = MCHC) 32.2 32.0-36.0 [place] [address]-02-21 12:50:00 Test Item Value Reference Range Interpretation Comments RDW (test code = RDW) 13.7 11.5-14.5 [place] 744043-02-21 12:50:00 Test Item Value Reference Range Interpretation Comments Platelet (test code = Platelet) 137 133-450 [place] 744043-02-21 12:50:00 Test Item Value Reference Range Interpretation Comments MPV (test code = MPV) 7.9 7.4-10.4 [place] 744043-02-21 12:50:00 Test Item Value Reference Range Interpretation Comments ACT (TEG) Rapid (test code = ACT (TEG) 113 s 86-118 Rapid) [place] [address]-02-21 12:50:00 Test Item Value Reference Range Interpretation Comments Split Point Rapid (test code = Split 0.6 min Point Rapid) [place] [address]-02-21 12:50:00 Test Item Value Reference Range Interpretation Comments R-time Rapid (test code = R-time 0.7 min 0.4-0.7 Rapid) [place] [address]-02-21 12:50:00 Test Item Value Reference Range Interpretation Comments K-time Rapid (test code = K-time 1.1 min 0.6-2.3 Rapid) [place] [address]-02-21 12:50:00 Test Item Value Reference Range Interpretation Comments Angle Rapid (test code = Angle 78 degrees 64-80 Rapid) [place] 744043-02-21 12:50:00 Test Item Value Reference Range Interpretation Comments Max Amplitude Rapid (test code = Max 65 mm 52-71 Amplitude Rapid) [place] [address]-02-21 12:50:00 Test Item Value Reference Range Interpretation Comments G-value Rapid (test code = G-value 9.2 5.0-11.6 Rapid) [place] [address]-02-21 12:50:00 Test Item Value Reference Range Interpretation Comments Estimated % Lysis Rapid 0.0 See_Comment [Au tomated message] The (test code = Estimated syste m which generated % Lysis Rapid) this result t ransmitted reference range : <=7.5. The reference r christiano was not used to int erpret this result as normal/abnormal . [place] 744043-02-21 12:50:00 Test Item Value Reference Range Interpretation Comments Plt Morph (test code = See Note 1(11/21/22 Plt Morph) 6:50 AM) [place] 744043-02-21 12:50:00 Test Item Value Reference Range Interpretation Comments Segs (test code = Segs) 64.1 45.0-75.0 [place] [address]-02-21 12:50:00 Test Item Value Reference Range Interpretation Comments Lymphocytes (test code = Lymphocytes) 22.0 20.0-40.0 [place] [address]-02-21 12:50:00 Test Item Value Reference Range Interpretation Comments Monocytes (test code = Monocytes) 8.3 2.0-12.0 [place] [address]-02-21 12:50:00 Test Item Value Reference Range Interpretation Comments Eosinophils (test code = 4.7 See_Comment [A utomated message] The Eosinophils) system which ge nerated this result tra nsmitted reference range : <=4.0. The reference r christiano was not used to int erpret this result as normal/abnormal . [place] [address]-02-21 12:50:00 Test Item Value Reference Range Interpretation Comments Basophils (test code = 0.9 See_Comment [Aut omated message] The Basophils) system which ge nerated this result tra nsmitted reference range : <=1.0. The reference r christiano was not used to int erpret this result as normal/abnormal . [place] 744043-02-21 12:50:00 Test Item Value Reference Range Interpretation Comments Neutrophils # (test code = Neutrophils 5.6 1.5-8.1 #) [place] 744043-02-21 12:50:00 Test Item Value Reference Range Interpretation Comments Lymphocytes # (test code = Lymphocytes 1.9 1.0-5.5 #) [place] [address]-02-21 12:50:00 Test Item Value Reference Range Interpretation Comments Monocytes # (test code 0.7 See_Comment [Aut omated message] The = Monocytes #) system which generated this result tra nsmitted reference range : <=0.8. The reference r christiano was not used to int erpret this result as normal/abnormal . [place] [address]-02-21 12:50:00 Test Item Value Reference Range Interpretation Comments Eosinophils # (test code 0.4 See_Comment [A utomated message] The = Eosinophils #) system whic h generated this result tra nsmitted reference range : <=0.5. The reference r christiano was not used to int erpret this result as normal/abnormal . [facility] RstgdopBLDKGOVETJ2316-52-72 12:50:00 Test Item Value Reference Range Interpretation Comments Basophils # (test code 0.1 See_Comment [Aut omated message] The = Basophils #) system which generated this result tra nsmitted reference range : <=0.2. The reference r christiano was not used to int erpret this result as normal/abnormal . [facility] MueyabfNEUJTUCGKE4470-42-56 12:50:00 Test Item Value Reference Range Interpretation Comments Stomatocyte (test code = Stomatocyte) slight [facility] BdnnzkiVQXQOXWIRL5333-32-02 12:50:00 Test Item Value Reference Range Interpretation Comments Ethanol Lvl (test code = Ethanol Lvl) no gt [facility] QffvhnmPFJNRCKSFN5063-09-92 12:50:00 Test Item Value Reference Range Interpretation Comments Etoh (%) (test code = Etoh (%)) no gt [facility] [employer] [id number] 12:50:00 Test Item Value Reference Range Interpretation Comments ABO/Rh (test code = ABO/Rh) O POS [facility] [employer] [id number] 12:50:00 Test Item Value Reference Range Interpretation Comments Antibody Scrn (test Negative (11/21/22 6:50 code = Antibody Scrn) AM) [facility] [employer] IKRMGLF4063-57-63 12:50:00 Test Item Value Reference Range Interpretation Comments ABO/Rh (test code = ABO/Rh) O POS [facility] [employer] KBXZXWY8230-00-15 12:50:00 Test Item Value Reference Range Interpretation Comments Antibody Scrn (test Negative (11/21/22 6:50 code = Antibody Scrn) AM) [facility] YlopoCARDIAC OIJTVTH7210-50-07 12:50:00 Test Item Value Reference Range Interpretation Comments HS Troponin I (test code = HS Troponin 15 I) [facility] [employer] VPCNG0112-04-29 12:50:00 Test Item Value Reference Range Interpretation Comments Glucose Lvl (test code = Glucose Lvl) 99 70-99 [facility] [employer] CJSNI3456-35-08 12:50:00 Test Item Value Reference Range Interpretation Comments BUN (test code = BUN) 38 7-22 [place] 570323-02-21 12:50:00 Test Item Value Reference Range Interpretation Comments Creatinine Lvl (test code = Creatinine 2.38 0.50-1.40 Lvl) [facility]2023-02-21 12:50:00 Test Item Value Reference Range Interpretation Comments Sodium Lvl (test code = Sodium Lvl) 140 135-145 [place] 570323-02-21 12:50:00 Test Item Value Reference Range Interpretation Comments Potassium Lvl (test code = Potassium 3.9 3.5-5.1 Lvl) [facility]2023-02-21 12:50:00 Test Item Value Reference Range Interpretation Comments Chloride Lvl (test code = Chloride Lvl) 107 95-109 [place] 570323-02-21 12:50:00 Test Item Value Reference Range Interpretation Comments CO2 (test code = CO2) 27 24-32 [place] 570323-02-21 12:50:00 Test Item Value Reference Range Interpretation Comments Calcium Lvl (test code = Calcium Lvl) 8.1 8.5-10.5 [place] 570323-02-21 12:50:00 Test Item Value Reference Range Interpretation Comments AGAP (test code = AGAP) 9.9 10.0-20.0 [facility]2023-02-21 12:50:00 Test Item Value Reference Range Interpretation Comments eGFR (test code = eGFR) 20 [facility]2023-02-21 12:50:00 Test Item Value Reference Range Interpretation Comments Lactic Acid Lvl (test code = Lactic 0.7 0.5-2.2 Acid Lvl) [facility]2023-02-21 12:50:00 Test Item Value Reference Range Interpretation Comments Total Protein (test code = Total 6.1 6.4-8.4 Protein) [place] 570323-02-21 12:50:00 Test Item Value Reference Range Interpretation Comments Albumin Lvl (test code = Albumin Lvl) 2.9 3.5-5.0 [place] 570323-02-21 12:50:00 Test Item Value Reference Range Interpretation Comments Globulin (test code = Globulin) 3.2 2.7-4.2 [place] 570323-02-21 12:50:00 Test Item Value Reference Range Interpretation Comments A/G Ratio (test code = A/G Ratio) 0.9 1 0.7-1.6 [place] [address]-02-21 12:50:00 Test Item Value Reference Range Interpretation Comments ALT (test code = ALT) 16 See_Comment [Auto mated message] The system which ge nerated this result transmit sheba reference range : <=65. The reference range was not used to interpr et this result as edy l/abnormal. [facility] [id number] 12:50:00 Test Item Value Reference Range Interpretation Comments AST (test code = AST) 15 See_Comment [Auto mated message] The system which ge nerated this result transmit sheba reference range : <=37. The reference range was not used to interpr et this result as edy l/abnormal. [facility] [id number] 12:50:00 Test Item Value Reference Range Interpretation Comments Alk Phos (test code = Alk Phos) 96 39-136 [facility] [id number] 12:50:00 Test Item Value Reference Range Interpretation Comments Bili Total (test code = Bili Total) 0.2 0.2-1.3 [facility] [id number] 12:50:00 Test Item Value Reference Range Interpretation Comments Bili Direct (test code no gt See_Comment [Aut omated message] The = Bili Direct) system which generated this result tra nsmitted reference range : <=0.3. The reference r christiano was not used to int erpret this result as edy l/abnormal. [facility] [id number] 12:50:00 Test Item Value Reference Range Interpretation Comments Bili Indirect Unable to See_Comment [Automated (test code = Bili Calculate message] T he system Indirect) which generated this result transmitted reference range : <=1.0. The reference range was not used to interpret this result as normal/abnormal . [place] [address]-02-21 12:50:00 Test Item Value Reference Range Interpretation Comments Ethanol Lvl (test code = Ethanol Lvl) no gt [facility] BudaKqqpvifKCRZXDXHC6795-59-36 12:50:00 Test Item Value Reference Range Interpretation Comments Etoh (%) (test code = Etoh (%)) no gt [facility] CenterTgwylkiZIDRZJXWY8026-58-34 12:50:00 Test Item Value Reference Range Interpretation Comments Lactic Acid Lvl (test code = Lactic 0.7 0.5-2.2 Acid Lvl) [facility] CenterCezwcgbBDRUEDWLF4310-21-98 12:50:00 Test Item Value Reference Range Interpretation Comments Total Protein (test code = Total 6.1 6.4-8.4 Protein) [facility] CenterWkooxyvWPYYHGQOF1945-55-39 12:50:00 Test Item Value Reference Range Interpretation Comments Albumin Lvl (test code = Albumin Lvl) 2.9 3.5-5.0 [place] 408583-02-21 12:50:00 Test Item Value Reference Range Interpretation Comments Globulin (test code = Globulin) 3.2 2.7-4.2 [facility] CenterQolsntoSFDWVCVXJ1998-02-21 12:50:00 Test Item Value Reference Range Interpretation Comments A/G Ratio (test code = A/G Ratio) 0.9 1 0.7-1.6 [place] 408583-02-21 12:50:00 Test Item Value Reference Range Interpretation Comments ALT (test code = ALT) 16 See_Comment [Auto mated message] The system which ge nerated this result transmit sheba reference range : <=65. The reference range was not used to interpr et this result as edy l/abnormal. [facility] CenterPloaxvhEJDFEMCPT6598-19-91 12:50:00 Test Item Value Reference Range Interpretation Comments AST (test code = AST) 15 See_Comment [Auto mated message] The system which ge nerated this result transmit sheba reference range : <=37. The reference range was not used to interpr et this result as edy l/abnormal. [facility] CenterNrwdurnCVZCHUNJN8893-31-32 12:50:00 Test Item Value Reference Range Interpretation Comments Alk Phos (test code = Alk Phos) 96 39-136 [place] 408583-02-21 12:50:00 Test Item Value Reference Range Interpretation Comments Bili Total (test code = Bili Total) 0.2 0.2-1.3 [place] 408583-02-21 12:50:00 Test Item Value Reference Range Interpretation Comments Bili Direct (test code no gt See_Comment [Aut omated message] The = Bili Direct) system which generated this result tra nsmitted reference range : <=0.3. The reference r christiano was not used to int erpret this result as edy l/abnormal. [facility] CenterNicgygnWYTXTCJXK5221-92-22 12:50:00 Test Item Value Reference Range Interpretation Comments Bili Indirect Unable to See_Comment [Automated (test code = Bili Calculate message] T he system Indirect) which generated this result transmitted reference range : <=1.0. The reference range was not used to interpret this result as normal/abnormal . [facility] CenterIvscofeHVTQATOPB1482-86-55 12:50:00 Test Item Value Reference Range Interpretation Comments HS Troponin I (test code = HS Troponin 15 I) [facility] CenterRibljpkTIBZMSHWE8236-14-33 12:50:00 Test Item Value Reference Range Interpretation Comments pH Justin (test code = pH Justin) 7.35 1 7.28-7.42 [facility] CenterNctznkxAZXDHGPUL8094-87-25 12:50:00 Test Item Value Reference Range Interpretation Comments pCO2 Justin (test code = pCO2 Justin) 55 38-52 [facility] CenterEscoapoFJIVIGFMV3285-52-94 12:50:00 Test Item Value Reference Range Interpretation Comments pO2 Justin (test code = pO2 Justin) 43 20-49 [facility] CenterTguobtvWAKCSVIDA0693-76-69 12:50:00 Test Item Value Reference Range Interpretation Comments HCO3 Justin (test code = HCO3 Justin) 30 22-26 [place] 408583-02-21 12:50:00 Test Item Value Reference Range Interpretation Comments BE Justin (test code = BE Justin) 3 -2-2 [facility] CenterFklctdzYSXSMLXMN7222-74-36 12:50:00 Test Item Value Reference Range Interpretation Comments O2 Sat Justin (calc) (test code = O2 Sat 75.9 40.0-70.0 Justin (calc)) [facility] CenterMziaknlFYPNVVGAR2108-74-42 12:50:00 Test Item Value Reference Range Interpretation Comments Temp Justin (test code = Temp Justin) 37.0 [place] 744043-02-21 12:50:00 Test Item Value Reference Range Interpretation Comments ACT (TEG) Rapid (test code = ACT (TEG) 113 s 86-118 Rapid) [facility]KpriaipMCAFHKXOYK7834-43-01 12:50:00 Test Item Value Reference Range Interpretation Comments Split Point Rapid (test code = Split 0.6 min Point Rapid) [place] [address]-02-21 12:50:00 Test Item Value Reference Range Interpretation Comments R-time Rapid (test code = R-time 0.7 min 0.4-0.7 Rapid) [place] 744043-02-21 12:50:00 Test Item Value Reference Range Interpretation Comments K-time Rapid (test code = K-time 1.1 min 0.6-2.3 Rapid) [place] [address]-02-21 12:50:00 Test Item Value Reference Range Interpretation Comments Angle Rapid (test code = Angle 78 degrees 64-80 Rapid) [place] [address]-02-21 12:50:00 Test Item Value Reference Range Interpretation Comments Max Amplitude Rapid (test code = Max 65 mm 52-71 Amplitude Rapid) [place] [address]-02-21 12:50:00 Test Item Value Reference Range Interpretation Comments G-value Rapid (test code = G-value 9.2 5.0-11.6 Rapid) [place] [address]-02-21 12:50:00 Test Item Value Reference Range Interpretation Comments Estimated % Lysis Rapid 0.0 See_Comment [Au tomated message] The (test code = Estimated syste m which generated % Lysis Rapid) this result t ransmitted reference range : <=7.5. The reference r christiano was not used to int erpret this result as normal/abnormal . [place] 744043-02-21 12:50:00 Test Item Value Reference Range Interpretation Comments Plt Morph (test code = See Note 1(11/21/22 Plt Morph) 6:50 AM) [place] [address]-02-21 12:50:00 Test Item Value Reference Range Interpretation Comments Stomatocyte (test code = Stomatocyte) slight [place] [address]-02-21 12:50:00 Test Item Value Reference Range Interpretation Comments WBC X 10x3 (test code = WBC X 10x3) 8.7 3.7-10.4 [place] [address]-02-21 12:50:00 Test Item Value Reference Range Interpretation Comments RBC X 10x6 (test code = RBC X 10x6) 3.56 4.20-5.40 [place] 744043-02-21 12:50:00 Test Item Value Reference Range Interpretation Comments Hgb (test code = Hgb) 10.4 12.0-16.0 [place] 744043-02-21 12:50:00 Test Item Value Reference Range Interpretation Comments Hct (test code = Hct) 32.3 36.0-48.0 [place] [address]-02-21 12:50:00 Test Item Value Reference Range Interpretation Comments MCV (test code = MCV) 90.8 80.0-98.0 [place] 744043-02-21 12:50:00 Test Item Value Reference Range Interpretation Comments MCH (test code = MCH) 29.3 pg 27.0-31.0 [place] 744043-02-21 12:50:00 Test Item Value Reference Range Interpretation Comments MCHC (test code = MCHC) 32.2 32.0-36.0 [place] 744043-02-21 12:50:00 Test Item Value Reference Range Interpretation Comments RDW (test code = RDW) 13.7 11.5-14.5 [place] 744043-02-21 12:50:00 Test Item Value Reference Range Interpretation Comments Platelet (test code = Platelet) 137 133-450 [facility] HospitalWezdvwaVLKUHFULHE0887-12-06 12:50:00 Test Item Value Reference Range Interpretation Comments MPV (test code = MPV) 7.9 7.4-10.4 [place] [address]-02-21 12:50:00 Test Item Value Reference Range Interpretation Comments ACT (TEG) Rapid (test code = ACT (TEG) 113 s 86-118 Rapid) [place] 744043-02-21 12:50:00 Test Item Value Reference Range Interpretation Comments Split Point Rapid (test code = Split 0.6 min Point Rapid) [place] [address]-02-21 12:50:00 Test Item Value Reference Range Interpretation Comments R-time Rapid (test code = R-time 0.7 min 0.4-0.7 Rapid) [place] [address]-02-21 12:50:00 Test Item Value Reference Range Interpretation Comments K-time Rapid (test code = K-time 1.1 min 0.6-2.3 Rapid) [place] 744043-02-21 12:50:00 Test Item Value Reference Range Interpretation Comments Angle Rapid (test code = Angle 78 degrees 64-80 Rapid) [place] 744043-02-21 12:50:00 Test Item Value Reference Range Interpretation Comments Max Amplitude Rapid (test code = Max 65 mm 52-71 Amplitude Rapid) [place] [address]-02-21 12:50:00 Test Item Value Reference Range Interpretation Comments G-value Rapid (test code = G-value 9.2 5.0-11.6 Rapid) [place] [address]-02-21 12:50:00 Test Item Value Reference Range Interpretation Comments Estimated % Lysis Rapid 0.0 See_Comment [Au tomated message] The (test code = Estimated syste m which generated % Lysis Rapid) this result t ransmitted reference range : <=7.5. The reference r christiano was not used to int erpret this result as normal/abnormal . [place] 744043-02-21 12:50:00 Test Item Value Reference Range Interpretation Comments Plt Morph (test code = See Note 1(11/21/22 Plt Morph) 6:50 AM) [place] 744043-02-21 12:50:00 Test Item Value Reference Range Interpretation Comments Segs (test code = Segs) 64.1 45.0-75.0 [place] [address]-02-21 12:50:00 Test Item Value Reference Range Interpretation Comments Lymphocytes (test code = Lymphocytes) 22.0 20.0-40.0 [place] [address]-02-21 12:50:00 Test Item Value Reference Range Interpretation Comments Monocytes (test code = Monocytes) 8.3 2.0-12.0 [place] [address]-02-21 12:50:00 Test Item Value Reference Range Interpretation Comments Eosinophils (test code = 4.7 See_Comment [A utomated message] The Eosinophils) system which ge nerated this result tra nsmitted reference range : <=4.0. The reference r christiano was not used to int erpret this result as normal/abnormal . [place] 744043-02-21 12:50:00 Test Item Value Reference Range Interpretation Comments Basophils (test code = 0.9 See_Comment [Aut omated message] The Basophils) system which ge nerated this result tra nsmitted reference range : <=1.0. The reference r christiano was not used to int erpret this result as normal/abnormal . [facility]rkvzntUSXBTZEVOR9357-44-17 12:50:00 Test Item Value Reference Range Interpretation Comments Neutrophils # (test code = Neutrophils 5.6 1.5-8.1 #) [facility] HospitalDejronmTPZJQRLYVH6681-68-98 12:50:00 Test Item Value Reference Range Interpretation Comments Lymphocytes # (test code = Lymphocytes 1.9 1.0-5.5 #) [facility] HospitalLlfovmfLXLANMOIOP3749-74-39 12:50:00 Test Item Value Reference Range Interpretation Comments Monocytes # (test code 0.7 See_Comment [Aut omated message] The = Monocytes #) system which generated this result tra nsmitted reference range : <=0.8. The reference r christiano was not used to int erpret this result as normal/abnormal . [facility] HospitalEmmravvKGPGTOBMUZ8323-75-02 12:50:00 Test Item Value Reference Range Interpretation Comments Eosinophils # (test code 0.4 See_Comment [A utomated message] The = Eosinophils #) system whic h generated this result tra nsmitted reference range : <=0.5. The reference r christiano was not used to int erpret this result as normal/abnormal . [facility] HospitalGrpvsvhNPLVXWCNAP9999-41-33 12:50:00 Test Item Value Reference Range Interpretation Comments Basophils # (test code 0.1 See_Comment [Aut omated message] The = Basophils #) system which generated this result tra nsmitted reference range : <=0.2. The reference r christiano was not used to int erpret this result as normal/abnormal . [facility] HospitalMylzcilWOKUTAYXDZ8965-68-59 12:50:00 Test Item Value Reference Range Interpretation Comments Stomatocyte (test code = Stomatocyte) slight [facility]nchfxmKHRRYBQMRR4329-48-12 12:50:00 Test Item Value Reference Range Interpretation Comments Ethanol Lvl (test code = Ethanol Lvl) no gt [facility]udaNhkeevcRWSERVZCPB2687-76-02 12:50:00 Test Item Value Reference Range Interpretation Comments Etoh (%) (test code = Etoh (%)) no gt [facility] BudaYuelchkFQADBZ3680-89-73 12:25:01 Test Item Value Reference Range Interpretation [...] [facility] Test Item Value Reference [...] [facility] resur[facility] the patella.[facility] Test Item Value Reference [...] arthroplasty and resur[facility] the patella.[facility] Test Item Value Reference [...] arthroplasty and resurfacing of the patella.UT SECTION: [place] 97687023-02-21 12:25:01 Test Item Value Reference Range Interpretation [...] arthroplasty and resur[facility] of the patella.[facility]01 Test Item Value Reference [...] arthroplasty and resurfacing of the patella.UT SECTION: [place] 97687023-02-21 12:25:01 Test Item Value Reference Range Interpretation [...] arthroplasty and resurfacing of the patella.[facility] Test Item Value Reference [...] arthroplasty and resurfacing of the patella.[facility] 12:[facility]01 Test Item Value Reference [...] arthroplasty and resurfacing of the patella.[facility] 12:25:01 Test Item Value Reference [...] and resurfacing of the patella.UT SECTION: ER [facility]vineHbvsztdVLZSMQ6824-50-53 11:23:44 Test Item Value Reference Range Interpretation [...] [facility]rapevineNtxxaroJBKVXJ5637-99-90 11:23:44 Test Item Value Reference Range Interpretation [...] [facility]vineRnfzsdlBATEEE6767-51-91 11:23:44 Test Item Value Reference Range Interpretation [...] along the tentorium. No significant midline shift. [place] 43973023-02-21 11:23:44 Test Item Value Reference Range Interpretation [...] along the tentorium. No significant midline shift. [place] 407033-02-21 11:23:44 Test Item Value Reference Range Interpretation [...] [facility]vineLsrwpluUEYODF9676-10-24 11:23:44 Test Item Value Reference Range Interpretation [...] [facility]rapevineEldxaicGEZEKJ5924-22-53 11:23:44 Test Item Value Reference Range Interpretation [...] [facility]rapevineUonuwdaVEJFPY3201-20-88 11:23:44 Test Item Value Reference Range Interpretation [...] [facility]rapevineIomfbupARQNEW9231-50-50 11:23:44 Test Item Value Reference Range Interpretation [...] [facility] BudaYpyvlknIXVKXL4166-82-26 11:23:44 Test Item Value Reference Range Interpretation [...] tentorium. No significant midline shift. [facility]2020-12-07 10:24:00 Test Item Value Reference Range Interpretation Comments Glucose Lvl (test code = Glucose Lvl) 66 70-99 [facility]2020-12-07 10:24:00 Test Item Value Reference Range Interpretation Comments BUN (test code = BUN) 19 7-22 [facility]2020-12-07 10:24:00 Test Item Value Reference Range Interpretation Comments Creatinine Lvl (test code = Creatinine 1.82 0.50-1.40 Lvl) [facility]2020-12-07 10:24:00 Test Item Value Reference Range Interpretation Comments Sodium Lvl (test code = Sodium Lvl) 139 135-145 [facility]2020-12-07 10:24:00 Test Item Value Reference Range Interpretation Comments Potassium Lvl (test code = Potassium 4.2 3.5-5.1 Lvl) [facility]2020-12-07 10:24:00 Test Item Value Reference Range Interpretation Comments Chloride Lvl (test code = Chloride Lvl) 105 95-109 [facility]2020-12-07 10:24:00 Test Item Value Reference Range Interpretation Comments CO2 (test code = CO2) [place] 570320-12-07 10:24:00 Test Item Value Reference Range Interpretation Comments Calcium Lvl (test code = Calcium Lvl) 8.2 8.5-10.5 [facility]2020-12-07 10:24:00 Test Item Value Reference Range Interpretation Comments AGAP (test code = AGAP) 10.2 10.0-20.0 [facility]2020-12-07 10:24:00 Test Item Value Reference Range Interpretation Comments Glucose Lvl (test code = Glucose Lvl) 66 70-99 [facility]2020-12-07 10:24:00 Test Item Value Reference Range Interpretation Comments BUN (test code = BUN) 19 - [facility]2020-12-07 10:24:00 Test Item Value Reference Range Interpretation Comments Creatinine Lvl (test code = Creatinine 1.82 0.50-1.40 Lvl) [facility]2020-12-07 10:24:00 Test Item Value Reference Range Interpretation Comments Sodium Lvl (test code = Sodium Lvl) 139 135-145 [facility]2020-12-07 10:24:00 Test Item Value Reference Range Interpretation Comments Potassium Lvl (test code = Potassium 4.2 3.5-5.1 Lvl) [facility]2020-12-07 10:24:00 Test Item Value Reference Range Interpretation Comments eGFR (test code = eGFR) 26 [facility]2020-12-07 10:24:00 Test Item Value Reference Range Interpretation Comments Chloride Lvl (test code = Chloride Lvl) 105 95-109 [facility]2020-12-07 10:24:00 Test Item Value Reference Range Interpretation Comments CO2 (test code = CO2) [facility]2020-12-07 10:24:00 Test Item Value Reference Range Interpretation Comments Calcium Lvl (test code = Calcium Lvl) 8.2 8.5-10.5 [facility]2020-12-07 10:24:00 Test Item Value Reference Range Interpretation Comments AGAP (test code = AGAP) 10.2 10.0-20.0 [facility]2020-12-07 10:24:00 Test Item Value Reference Range Interpretation Comments eGFR (test code = eGFR) 26 [facility] HospitalLtdcbdoBDUAMDEATT2599-99-71 10:24:00 Test Item Value Reference Range Interpretation Comments Segs (test code = Segs) 70.6 45.0-75.0 [place] 744040-12-07 10:24:00 Test Item Value Reference Range Interpretation Comments Lymphocytes (test code = Lymphocytes) 13.2 20.0-40.0 [facility] HospitalTpyqhobDKQOHHUTHG7668-29-81 10:24:00 Test Item Value Reference Range Interpretation Comments Monocytes (test code = Monocytes) 10.9 2.0-12.0 [facility] HospitalHxudzdjFEZQPQLJYX2524-57-42 10:24:00 Test Item Value Reference Range Interpretation Comments Eosinophils (test code = 4.6 See_Comment [A utomated message] The Eosinophils) system which ge nerated this result tra nsmitted reference range : <=4.0. The reference r christiano was not used to int erpret this result as normal/abnormal . [facility] HospitalUueltfeBQYJGPLVFD1718-14-24 10:24:00 Test Item Value Reference Range Interpretation Comments Basophils (test code = 0.7 See_Comment [Aut omated message] The Basophils) system which ge nerated this result tra nsmitted reference range : <=1.0. The reference r christiano was not used to int erpret this result as normal/abnormal . [facility] HospitalJawhdgjZEJGUEFRVW8098-41-38 10:24:00 Test Item Value Reference Range Interpretation Comments Segs (test code = Segs) 70.6 45.0-75.0 [place] 744040-12-07 10:24:00 Test Item Value Reference Range Interpretation Comments Neutrophils # (test code = Neutrophils 5.3 1.5-8.1 #) [facility] HospitalPelbnemBCFPZBSJJN2121-04-41 10:24:00 Test Item Value Reference Range Interpretation Comments Lymphocytes # (test code = Lymphocytes 1.0 1.0-5.5 #) [place] [address]-12-07 10:24:00 Test Item Value Reference Range Interpretation Comments Monocytes # (test code 0.8 See_Comment [Aut omated message] The = Monocytes #) system which generated this result tra nsmitted reference range : <=0.8. The reference r christiano was not used to int erpret this result as normal/abnormal . [facility] HospitalDkwjdxzMVIEQDSHEP8093-69-08 10:24:00 Test Item Value Reference Range Interpretation Comments Eosinophils # (test code 0.3 See_Comment [A utomated message] The = Eosinophils #) system whic h generated this result tra nsmitted reference range : <=0.5. The reference r christiano was not used to int erpret this result as normal/abnormal . [facility] HospitalIugkvccBPDKNPDETB4019-32-85 10:24:00 Test Item Value Reference Range Interpretation Comments Basophils # (test code 0.1 See_Comment [Aut omated message] The = Basophils #) system which generated this result tra nsmitted reference range : <=0.2. The reference r christiano was not used to int erpret this result as normal/abnormal . [facility] HospitalQcoyrumAPJOLPDUBK1858-89-79 10:24:00 Test Item Value Reference Range Interpretation Comments WBC (test code = WBC) 7.5 3.7-10.4 [facility] HospitalZslloubBMSCZLXPLD4835-33-76 10:24:00 Test Item Value Reference Range Interpretation Comments RBC (test code = RBC) 3.85 4.20-5.40 [facility] HospitalAuoggjvSUQAELCMSO3178-56-90 10:24:00 Test Item Value Reference Range Interpretation Comments Hgb (test code = Hgb) 10.6 12.0-16.0 [facility] HospitalBfvyveuDXNOYLGRDT7309-84-72 10:24:00 Test Item Value Reference Range Interpretation Comments Hct (test code = Hct) 32.1 36.0-48.0 [facility] HospitalUxkbfwfBCUHQANCCZ0649-17-83 10:24:00 Test Item Value Reference Range Interpretation Comments MCV (test code = MCV) 83.5 80.0-98.0 [place] 744040-12-07 10:24:00 Test Item Value Reference Range Interpretation Comments Lymphocytes (test code = Lymphocytes) 13.2 20.0-40.0 [facility] HospitalYtdzysyHFPCDXMQQL4837-93-23 10:24:00 Test Item Value Reference Range Interpretation Comments MCH (test code = MCH) 27.7 pg 27.0-31.0 [facility] HospitalFawzfaxHOXVUINVTA7752-88-91 10:24:00 Test Item Value Reference Range Interpretation Comments MCHC (test code = MCHC) 33.1 32.0-36.0 [facility] HospitalWfnntxbSYAMJHHHYS7967-92-82 10:24:00 Test Item Value Reference Range Interpretation Comments RDW (test code = RDW) 16.8 11.5-14.5 [facility] HospitalCvbtequYABTGZZZCE0901-53-59 10:24:00 Test Item Value Reference Range Interpretation Comments Platelet (test code = Platelet) 185 133-450 [facility] HospitalSkmqqttYQWRSRQSBL2431-67-01 10:24:00 Test Item Value Reference Range Interpretation Comments MPV (test code = MPV) 8.4 7.4-10.4 [facility] HospitalAeliznuEDKGJNJZNB7162-95-47 10:24:00 Test Item Value Reference Range Interpretation Comments Monocytes (test code = Monocytes) 10.9 2.0-12.0 [facility] HospitalOwrqtayABCZXXWYZZ8477-54-81 10:24:00 Test Item Value Reference Range Interpretation Comments Eosinophils (test code = 4.6 See_Comment [A utomated message] The Eosinophils) system which ge nerated this result tra nsmitted reference range : <=4.0. The reference r christiano was not used to int erpret this result as normal/abnormal . [facility] HospitalJcgnmlvUSHJUFCVNE4220-83-88 10:24:00 Test Item Value Reference Range Interpretation Comments Basophils (test code = 0.7 See_Comment [Aut omated message] The Basophils) system which ge nerated this result tra nsmitted reference range : <=1.0. The reference r christiano was not used to int erpret this result as normal/abnormal . [facility] HospitalDtnwyfzIWVLFEBGVC7621-97-32 10:24:00 Test Item Value Reference Range Interpretation Comments Neutrophils # (test code = Neutrophils 5.3 1.5-8.1 #) [facility] HospitalJpveirnJCRHSTKIBQ6696-28-61 10:24:00 Test Item Value Reference Range Interpretation Comments Lymphocytes # (test code = Lymphocytes 1.0 1.0-5.5 #) [facility] HospitalOcrcodwDQQRINTLIA2197-13-25 10:24:00 Test Item Value Reference Range Interpretation Comments Monocytes # (test code 0.8 See_Comment [Aut omated message] The = Monocytes #) system which generated this result tra nsmitted reference range : <=0.8. The reference r christiano was not used to int erpret this result as normal/abnormal . [facility] HospitalRoraugkKVICRPOTDS9808-28-16 10:24:00 Test Item Value Reference Range Interpretation Comments Eosinophils # (test code 0.3 See_Comment [A utomated message] The = Eosinophils #) system whic h generated this result tra nsmitted reference range : <=0.5. The reference r christiano was not used to int erpret this result as normal/abnormal . [facility] HospitalNlxmgkpCTRMRLJCWV9438-37-96 10:24:00 Test Item Value Reference Range Interpretation Comments Basophils # (test code 0.1 See_Comment [Aut omated message] The = Basophils #) system which generated this result tra nsmitted reference range : <=0.2. The reference r christiano was not used to int erpret this result as normal/abnormal . [facility] HospitalEjybpluGBHVGUBNFU4237-08-98 10:24:00 Test Item Value Reference Range Interpretation Comments WBC (test code = WBC) 7.5 3.7-10.4 [facility] HospitalQofuyfxODNJSBPTYG4841-47-68 10:24:00 Test Item Value Reference Range Interpretation Comments RBC (test code = RBC) 3.85 4.20-5.40 [facility] HospitalLksmctrSYUFYRVSNU7567-37-48 10:24:00 Test Item Value Reference Range Interpretation Comments Hgb (test code = Hgb) 10.6 12.0-16.0 [facility] HospitalBnmnfvsYMBGJZVEQQ7447-41-33 10:24:00 Test Item Value Reference Range Interpretation Comments Hct (test code = Hct) 32.1 36.0-48.0 [facility] HospitalQdntclePLCIYFMFCA6750-85-28 10:24:00 Test Item Value Reference Range Interpretation Comments MCV (test code = MCV) 83.5 80.0-98.0 [facility] HospitalYdxojxpEMJXFRSORV5883-68-52 10:24:00 Test Item Value Reference Range Interpretation Comments MCH (test code = MCH) 27.7 pg 27.0-31.0 [facility] HospitalMbfxuuaBPGWIZDEMX9752-68-10 10:24:00 Test Item Value Reference Range Interpretation Comments MCHC (test code = MCHC) 33.1 32.0-36.0 [place] 8[address]54-12-07 10:24:00 Test Item Value Reference Range Interpretation Comments RDW (test code = RDW) 16.8 11.5-14.5 [place] 744040-12-07 10:24:00 Test Item Value Reference Range Interpretation Comments Platelet (test code = Platelet) 185 133-450 [facility] HospitalQgshyqvASRMBDLWYP7341-40-96 10:24:00 Test Item Value Reference Range Interpretation Comments MPV (test code = MPV) 8.4 7.4-10.4 [facility]2020-12-07 10:24:00 Test Item Value Reference Range Interpretation Comments Glucose Lvl (test code = Glucose Lvl) 66 70-99 [facility]2020-12-07 10:24:00 Test Item Value Reference Range Interpretation Comments BUN (test code = BUN) 19 7-22 [facility]2020-12-07 10:24:00 Test Item Value Reference Range Interpretation Comments Creatinine Lvl (test code = Creatinine 1.82 0.50-1.40 Lvl) [facility]2020-12-07 10:24:00 Test Item Value Reference Range Interpretation Comments Sodium Lvl (test code = Sodium Lvl) 139 135-145 [facility]2020-12-07 10:24:00 Test Item Value Reference Range Interpretation Comments Potassium Lvl (test code = Potassium 4.2 3.5-5.1 Lvl) [facility]2020-12-07 10:24:00 Test Item Value Reference Range Interpretation Comments Chloride Lvl (test code = Chloride Lvl) 105 95-109 [facility]2020-12-07 10:24:00 Test Item Value Reference Range Interpretation Comments CO2 (test code = CO2) 28 24-32 [facility]2020-12-07 10:24:00 Test Item Value Reference Range Interpretation Comments Calcium Lvl (test code = Calcium Lvl) 8.2 8.5-10.5 [facility]2020-12-07 10:24:00 Test Item Value Reference Range Interpretation Comments AGAP (test code = AGAP) 10.2 10.0-20.0 [facility]2020-12-07 10:24:00 Test Item Value Reference Range Interpretation Comments eGFR (test code = eGFR) 26 [facility] HospitalNozjovcIHUIRFPKDW0829-77-71 10:24:00 Test Item Value Reference Range Interpretation Comments Segs (test code = Segs) 70.6 45.0-75.0 [facility] HospitalRagoqxpTBSNRGHVIM9261-33-09 10:24:00 Test Item Value Reference Range Interpretation Comments Lymphocytes (test code = Lymphocytes) 13.2 20.0-40.0 [facility] HospitalFujrlyuEWKZOFCLSB6033-66-03 10:24:00 Test Item Value Reference Range Interpretation Comments Monocytes (test code = Monocytes) 10.9 2.0-12.0 [facility] HospitalGtfqjnrENJZYQYYZZ8122-41-58 10:24:00 Test Item Value Reference Range Interpretation Comments Eosinophils (test code = 4.6 See_Comment [A utomated message] The Eosinophils) system which ge nerated this result tra nsmitted reference range : <=4.0. The reference r christiano was not used to int erpret this result as normal/abnormal . [facility] HospitalJpqwdfwFXLBITYTOU5138-76-39 10:24:00 Test Item Value Reference Range Interpretation Comments Basophils (test code = 0.7 See_Comment [Aut omated message] The Basophils) system which ge nerated this result tra nsmitted reference range : <=1.0. The reference r christiano was not used to int erpret this result as normal/abnormal . [facility] HospitalSpktuwfZBUPQDBDDU1047-92-16 10:24:00 Test Item Value Reference Range Interpretation Comments Neutrophils # (test code = Neutrophils 5.3 1.5-8.1 #) [facility] HospitalLinuopmXDCEPRVOXJ7968-56-12 10:24:00 Test Item Value Reference Range Interpretation Comments Lymphocytes # (test code = Lymphocytes 1.0 1.0-5.5 #) [facility] HospitalNlhhgxdNYLKWWVNGQ7817-09-36 10:24:00 Test Item Value Reference Range Interpretation Comments Monocytes # (test code 0.8 See_Comment [Aut omated message] The = Monocytes #) system which generated this result tra nsmitted reference range : <=0.8. The reference r christiano was not used to int erpret this result as normal/abnormal . [facility] HospitalVaaxzjdXHHOGQHWPM9331-43-08 10:24:00 Test Item Value Reference Range Interpretation Comments Eosinophils # (test code 0.3 See_Comment [A utomated message] The = Eosinophils #) system whic h generated this result tra nsmitted reference range : <=0.5. The reference r christiano was not used to int erpret this result as normal/abnormal . [facility] HospitalKyshbzsCRODXIZRMF9820-38-13 10:24:00 Test Item Value Reference Range Interpretation Comments Basophils # (test code 0.1 See_Comment [Aut omated message] The = Basophils #) system which generated this result tra nsmitted reference range : <=0.2. The reference r christiano was not used to int erpret this result as normal/abnormal . [facility] HospitalNlorcmaYMWKBLXVSZ1697-26-42 10:24:00 Test Item Value Reference Range Interpretation Comments WBC (test code = WBC) 7.5 3.7-10.4 [facility] HospitalJfcxzfnIKNDEADCSJ5096-01-82 10:24:00 Test Item Value Reference Range Interpretation Comments RBC (test code = RBC) 3.85 4.20-5.40 [facility] HospitalScqeyjvMBTBJEFUEL8763-95-54 10:24:00 Test Item Value Reference Range Interpretation Comments Hgb (test code = Hgb) 10.6 12.0-16.0 [facility] HospitalNiawytdZDDFMWTMAO3959-37-50 10:24:00 Test Item Value Reference Range Interpretation Comments Hct (test code = Hct) 32.1 36.0-48.0 [facility] HospitalCefhtvaLWMTYQQMOE5513-12-21 10:24:00 Test Item Value Reference Range Interpretation Comments MCV (test code = MCV) 83.5 80.0-98.0 [facility] HospitalCakkevxZBCYEOSCSR3891-78-83 10:24:00 Test Item Value Reference Range Interpretation Comments MCH (test code = MCH) 27.7 pg 27.0-31.0 [facility] HospitalWsdjvmkXRAFPEUZXU3043-34-04 10:24:00 Test Item Value Reference Range Interpretation Comments MCHC (test code = MCHC) 33.1 32.0-36.0 [facility] HospitalUwjausvLTNUFAXUBU1318-33-33 10:24:00 Test Item Value Reference Range Interpretation Comments RDW (test code = RDW) 16.8 11.5-14.5 [facility] HospitalWztzvakSVYQSXSQZS0872-46-27 10:24:00 Test Item Value Reference Range Interpretation Comments Platelet (test code = Platelet) 185 133-450 [facility]ovltyMVTXVCYIGV2650-91-09 10:24:00 Test Item Value Reference Range Interpretation Comments MPV (test code = MPV) 8.4 7.4-10.4 [facility]2020-12-07 10:24:00 Test Item Value Reference Range Interpretation Comments Glucose Lvl (test code = Glucose Lvl) 66 70-99 [place] 570320-12-07 10:24:00 Test Item Value Reference Range Interpretation Comments BUN (test code = BUN) 19 7-22 [place] 570320-12-07 10:24:00 Test Item Value Reference Range Interpretation Comments Creatinine Lvl (test code = Creatinine 1.82 0.50-1.40 Lvl) [facility]2020-12-07 10:24:00 Test Item Value Reference Range Interpretation Comments Sodium Lvl (test code = Sodium Lvl) 139 135-145 [facility]2020-12-07 10:24:00 Test Item Value Reference Range Interpretation Comments Potassium Lvl (test code = Potassium 4.2 3.5-5.1 Lvl) [facility]2020-12-07 10:24:00 Test Item Value Reference Range Interpretation Comments Chloride Lvl (test code = Chloride Lvl) 105 95-109 [facility]2020-12-07 10:24:00 Test Item Value Reference Range Interpretation Comments CO2 (test code = CO2) 28 24-32 [facility]2020-12-07 10:24:00 Test Item Value Reference Range Interpretation Comments Calcium Lvl (test code = Calcium Lvl) 8.2 8.5-10.5 [facility]2020-12-07 10:24:00 Test Item Value Reference Range Interpretation Comments AGAP (test code = AGAP) 10.2 10.0-20.0 [facility]2020-12-07 10:24:00 Test Item Value Reference Range Interpretation Comments eGFR (test code = eGFR) 26 [facility] HospitalTumstgtZEUKHWSKGC3972-78-15 10:24:00 Test Item Value Reference Range Interpretation Comments Segs (test code = Segs) 70.6 45.0-75.0 [facility] HospitalRceozskONSPIKFTOB1468-58-04 10:24:00 Test Item Value Reference Range Interpretation Comments Lymphocytes (test code = Lymphocytes) 13.2 20.0-40.0 [place] [address]-12-07 10:24:00 Test Item Value Reference Range Interpretation Comments Monocytes (test code = Monocytes) 10.9 2.0-12.0 [place] 744040-12-07 10:24:00 Test Item Value Reference Range Interpretation Comments Eosinophils (test code = 4.6 See_Comment [A utomated message] The Eosinophils) system which ge nerated this result tra nsmitted reference range : <=4.0. The reference r christiano was not used to int erpret this result as normal/abnormal . [facility] HospitalZteagviBFUUKJNTRA5926-94-32 10:24:00 Test Item Value Reference Range Interpretation Comments Basophils (test code = 0.7 See_Comment [Aut omated message] The Basophils) system which ge nerated this result tra nsmitted reference range : <=1.0. The reference r christiano was not used to int erpret this result as normal/abnormal . [facility] HospitalKfoxkeyVCNALNCQGV4397-11-29 10:24:00 Test Item Value Reference Range Interpretation Comments Neutrophils # (test code = Neutrophils 5.3 1.5-8.1 #) [facility] HospitalFtnzoegBXULHDNXJH2371-58-25 10:24:00 Test Item Value Reference Range Interpretation Comments Lymphocytes # (test code = Lymphocytes 1.0 1.0-5.5 #) [facility] HospitalRgdwbmyNVWRHXETYB9034-96-19 10:24:00 Test Item Value Reference Range Interpretation Comments Monocytes # (test code 0.8 See_Comment [Aut omated message] The = Monocytes #) system which generated this result tra nsmitted reference range : <=0.8. The reference r christiano was not used to int erpret this result as normal/abnormal . [place] [address]-12-07 10:24:00 Test Item Value Reference Range Interpretation Comments Eosinophils # (test code 0.3 See_Comment [A utomated message] The = Eosinophils #) system whic h generated this result tra nsmitted reference range : <=0.5. The reference r christiano was not used to int erpret this result as normal/abnormal . [place] 744040-12-07 10:24:00 Test Item Value Reference Range Interpretation Comments Basophils # (test code 0.1 See_Comment [Aut omated message] The = Basophils #) system which generated this result tra nsmitted reference range : <=0.2. The reference r christiano was not used to int erpret this result as normal/abnormal . [facility] HospitalYtczemwOUQVGTKVAE3415-73-49 10:24:00 Test Item Value Reference Range Interpretation Comments WBC (test code = WBC) 7.5 3.7-10.4 [facility] HospitalVvvjoqqVKSEASVRVY0855-56-52 10:24:00 Test Item Value Reference Range Interpretation Comments RBC (test code = RBC) 3.85 4.20-5.40 [facility] HospitalKgkezfgCIMYGCQGBI2645-70-23 10:24:00 Test Item Value Reference Range Interpretation Comments Hgb (test code = Hgb) 10.6 12.0-16.0 [facility] HospitalObkrcolNNFMEKASMK7388-80-04 10:24:00 Test Item Value Reference Range Interpretation Comments Hct (test code = Hct) 32.1 36.0-48.0 [facility] HospitalUxmkurkJPBBDKNGRO2740-66-01 10:24:00 Test Item Value Reference Range Interpretation Comments MCV (test code = MCV) 83.5 80.0-98.0 [facility] HospitalMqzgdehPFJCRPBVYR6210-90-20 10:24:00 Test Item Value Reference Range Interpretation Comments MCH (test code = MCH) 27.7 pg 27.0-31.0 [facility] HospitalAxnchmcKWDFJWXKNG9882-49-04 10:24:00 Test Item Value Reference Range Interpretation Comments MCHC (test code = MCHC) 33.1 32.0-36.0 [facility] HospitalWpsnqafTTHJHYVXJS6509-76-09 10:24:00 Test Item Value Reference Range Interpretation Comments RDW (test code = RDW) 16.8 11.5-14.5 [facility] HospitalLokermdDAGSWCOWWW7268-98-41 10:24:00 Test Item Value Reference Range Interpretation Comments Platelet (test code = Platelet) 185 133-450 [facility] HospitalRaojmtlDKCGJMQNVC7833-32-83 10:24:00 Test Item Value Reference Range Interpretation Comments MPV (test code = MPV) 8.4 7.4-10.4 [facility]2020-12-07 10:24:00 Test Item Value Reference Range Interpretation Comments Glucose Lvl (test code = Glucose Lvl) 66 70-99 [facility]2020-12-07 10:24:00 Test Item Value Reference Range Interpretation Comments BUN (test code = BUN) 19 7-22 [facility]2020-12-07 10:24:00 Test Item Value Reference Range Interpretation Comments Creatinine Lvl (test code = Creatinine 1.82 0.50-1.40 Lvl) [facility]2020-12-07 10:24:00 Test Item Value Reference Range Interpretation Comments Sodium Lvl (test code = Sodium Lvl) 139 135-145 [place] 570320-12-07 10:24:00 Test Item Value Reference Range Interpretation Comments Potassium Lvl (test code = Potassium 4.2 3.5-5.1 Lvl) [facility]2020-12-07 10:24:00 Test Item Value Reference Range Interpretation Comments Chloride Lvl (test code = Chloride Lvl) 105 95-109 [facility]2020-12-07 10:24:00 Test Item Value Reference Range Interpretation Comments CO2 (test code = CO2) 28 24-32 [place] 570320-12-07 10:24:00 Test Item Value Reference Range Interpretation Comments Calcium Lvl (test code = Calcium Lvl) 8.2 8.5-10.5 [facility]2020-12-07 10:24:00 Test Item Value Reference Range Interpretation Comments AGAP (test code = AGAP) 10.2 10.0-20.0 [facility]2020-12-07 10:24:00 Test Item Value Reference Range Interpretation Comments eGFR (test code = eGFR) 26 [facility] HospitalAsudgxcXFPOPFPTUW9682-72-73 10:24:00 Test Item Value Reference Range Interpretation Comments Segs (test code = Segs) 70.6 45.0-75.0 [facility] HospitalTnpcdtvNOQBTFDZBK7090-36-75 10:24:00 Test Item Value Reference Range Interpretation Comments Lymphocytes (test code = Lymphocytes) 13.2 20.0-40.0 [place] 744040-12-07 10:24:00 Test Item Value Reference Range Interpretation Comments Monocytes (test code = Monocytes) 10.9 2.0-12.0 [place] [address]-12-07 10:24:00 Test Item Value Reference Range Interpretation Comments Eosinophils (test code = 4.6 See_Comment [A utomated message] The Eosinophils) system which ge nerated this result tra nsmitted reference range : <=4.0. The reference r christiano was not used to int erpret this result as normal/abnormal . [facility] HospitalThqhpzmFOYHADDIEZ6664-90-74 10:24:00 Test Item Value Reference Range Interpretation Comments Basophils (test code = 0.7 See_Comment [Aut omated message] The Basophils) system which ge nerated this result tra nsmitted reference range : <=1.0. The reference r christiano was not used to int erpret this result as normal/abnormal . [facility] HospitalKuusfzmVDKVIXCUIT1546-15-67 10:24:00 Test Item Value Reference Range Interpretation Comments Neutrophils # (test code = Neutrophils 5.3 1.5-8.1 #) [facility] HospitalLwwwofiPBXGUDEAGV0550-53-24 10:24:00 Test Item Value Reference Range Interpretation Comments Lymphocytes # (test code = Lymphocytes 1.0 1.0-5.5 #) [facility] HospitalLitivnaXHBRQDDBKS7344-26-32 10:24:00 Test Item Value Reference Range Interpretation Comments Monocytes # (test code 0.8 See_Comment [Aut omated message] The = Monocytes #) system which generated this result tra nsmitted reference range : <=0.8. The reference r christiano was not used to int erpret this result as normal/abnormal . [facility] HospitalJqwpuwbNEKYQDFYFU0074-63-61 10:24:00 Test Item Value Reference Range Interpretation Comments Eosinophils # (test code 0.3 See_Comment [A utomated message] The = Eosinophils #) system whic h generated this result tra nsmitted reference range : <=0.5. The reference r christiano was not used to int erpret this result as normal/abnormal . [facility] HospitalRharrzbAOJTVMHHBB7312-48-68 10:24:00 Test Item Value Reference Range Interpretation Comments Basophils # (test code 0.1 See_Comment [Aut omated message] The = Basophils #) system which generated this result tra nsmitted reference range : <=0.2. The reference r christiano was not used to int erpret this result as normal/abnormal . [facility] HospitalWrocuybOXMANHBNWZ0496-21-30 10:24:00 Test Item Value Reference Range Interpretation Comments WBC (test code = WBC) 7.5 3.7-10.4 [facility] HospitalUuqrgxtNKDUCGUUHV5495-02-03 10:24:00 Test Item Value Reference Range Interpretation Comments RBC (test code = RBC) 3.85 4.20-5.40 [facility] HospitalAbrwmnqZZSQOLAFKS8910-00-82 10:24:00 Test Item Value Reference Range Interpretation Comments Hgb (test code = Hgb) 10.6 12.0-16.0 [facility] HospitalHrravouYWGVBVQCJN8046-83-84 10:24:00 Test Item Value Reference Range Interpretation Comments Hct (test code = Hct) 32.1 36.0-48.0 [facility] HospitalHzzahaqVBGVZJHTCK3179-39-66 10:24:00 Test Item Value Reference Range Interpretation Comments MCV (test code = MCV) 83.5 80.0-98.0 [place] [address]-12-07 10:24:00 Test Item Value Reference Range Interpretation Comments MCH (test code = MCH) 27.7 pg 27.0-31.0 [facility] HospitalOoagvceGHPZETDCOT1078-42-61 10:24:00 Test Item Value Reference Range Interpretation Comments MCHC (test code = MCHC) 33.1 32.0-36.0 [facility] HospitalAstpqldEYLSJUZFUH6543-81-92 10:24:00 Test Item Value Reference Range Interpretation Comments RDW (test code = RDW) 16.8 11.5-14.5 [facility] HospitalKulzysmVXCWNLTPMQ7296-07-09 10:24:00 Test Item Value Reference Range Interpretation Comments Platelet (test code = Platelet) 185 133-450 [facility] HospitalAwnbskrCCIXQUPPHQ4842-22-84 10:24:00 Test Item Value Reference Range Interpretation Comments MPV (test code = MPV) 8.4 7.4-10.4 [facility]2020-12-07 10:24:00 Test Item Value Reference Range Interpretation Comments Glucose Lvl (test code = Glucose Lvl) 66 70-99 [facility]2020-12-07 10:24:00 Test Item Value Reference Range Interpretation Comments BUN (test code = BUN) 19 7-22 [facility]2020-12-07 10:24:00 Test Item Value Reference Range Interpretation Comments Creatinine Lvl (test code = Creatinine 1.82 0.50-1.40 Lvl) [facility]2020-12-07 10:24:00 Test Item Value Reference Range Interpretation Comments Sodium Lvl (test code = Sodium Lvl) 139 135-145 [facility]2020-12-07 10:24:00 Test Item Value Reference Range Interpretation Comments Potassium Lvl (test code = Potassium 4.2 3.5-5.1 Lvl) [facility]2020-12-07 10:24:00 Test Item Value Reference Range Interpretation Comments Chloride Lvl (test code = Chloride Lvl) 105 95-109 [facility]2020-12-07 10:24:00 Test Item Value Reference Range Interpretation Comments CO2 (test code = CO2) 28 24-32 [place] 570320-12-07 10:24:00 Test Item Value Reference Range Interpretation Comments Calcium Lvl (test code = Calcium Lvl) 8.2 8.5-10.5 [facility]2020-12-07 10:24:00 Test Item Value Reference Range Interpretation Comments AGAP (test code = AGAP) 10.2 10.0-20.0 [facility]2020-12-07 10:24:00 Test Item Value Reference Range Interpretation Comments eGFR (test code = eGFR) 26 [place] 744040-12-07 10:24:00 Test Item Value Reference Range Interpretation Comments Segs (test code = Segs) 70.6 45.0-75.0 [place] 744040-12-07 10:24:00 Test Item Value Reference Range Interpretation Comments Lymphocytes (test code = Lymphocytes) 13.2 20.0-40.0 [place] [address]-12-07 10:24:00 Test Item Value Reference Range Interpretation Comments Monocytes (test code = Monocytes) 10.9 2.0-12.0 [place] [address]-12-07 10:24:00 Test Item Value Reference Range Interpretation Comments Eosinophils (test code = 4.6 See_Comment [A utomated message] The Eosinophils) system which ge nerated this result tra nsmitted reference range : <=4.0. The reference r christiano was not used to int erpret this result as normal/abnormal . [place] 744040-12-07 10:24:00 Test Item Value Reference Range Interpretation Comments Basophils (test code = 0.7 See_Comment [Aut omated message] The Basophils) system which ge nerated this result tra nsmitted reference range : <=1.0. The reference r christiano was not used to int erpret this result as normal/abnormal . [facility] HospitalWeseciqBUCCXSNOWM7647-78-87 10:24:00 Test Item Value Reference Range Interpretation Comments Neutrophils # (test code = Neutrophils 5.3 1.5-8.1 #) [facility] HospitalPkwhezeLLQYAPNXTC1540-23-65 10:24:00 Test Item Value Reference Range Interpretation Comments Lymphocytes # (test code = Lymphocytes 1.0 1.0-5.5 #) [facility] HospitalYelgkbgPQYEKOKUFX0400-26-34 10:24:00 Test Item Value Reference Range Interpretation Comments Monocytes # (test code 0.8 See_Comment [Aut omated message] The = Monocytes #) system which generated this result tra nsmitted reference range : <=0.8. The reference r christiano was not used to int erpret this result as normal/abnormal . [facility] HospitalEewnvioDTRWJRDGBB1757-49-18 10:24:00 Test Item Value Reference Range Interpretation Comments Eosinophils # (test code 0.3 See_Comment [A utomated message] The = Eosinophils #) system whic h generated this result tra nsmitted reference range : <=0.5. The reference r christiano was not used to int erpret this result as normal/abnormal . [facility] HospitalDodcqfmMJWNMPMZIA2993-42-38 10:24:00 Test Item Value Reference Range Interpretation Comments Basophils # (test code 0.1 See_Comment [Aut omated message] The = Basophils #) system which generated this result tra nsmitted reference range : <=0.2. The reference r christiano was not used to int erpret this result as normal/abnormal . [facility] HospitalJxkzptnBDOIMSYRDJ2239-79-90 10:24:00 Test Item Value Reference Range Interpretation Comments WBC (test code = WBC) 7.5 3.7-10.4 [facility] HospitalPmvqdnqEZDDPIQUOD8220-01-57 10:24:00 Test Item Value Reference Range Interpretation Comments RBC (test code = RBC) 3.85 4.20-5.40 [facility] HospitalZlvocgtTVGKMVDAEW7458-49-71 10:24:00 Test Item Value Reference Range Interpretation Comments Hgb (test code = Hgb) 10.6 12.0-16.0 [facility] HospitalKrvgzzuYHIYANXPYH0636-39-33 10:24:00 Test Item Value Reference Range Interpretation Comments Hct (test code = Hct) 32.1 36.0-48.0 [place] [address]-12-07 10:24:00 Test Item Value Reference Range Interpretation Comments MCV (test code = MCV) 83.5 80.0-98.0 [place] [address]-12-07 10:24:00 Test Item Value Reference Range Interpretation Comments MCH (test code = MCH) 27.7 pg 27.0-31.0 [place] [address]-12-07 10:24:00 Test Item Value Reference Range Interpretation Comments MCHC (test code = MCHC) 33.1 32.0-36.0 [place] [address]-12-07 10:24:00 Test Item Value Reference Range Interpretation Comments RDW (test code = RDW) 16.8 11.5-14.5 [place] [address]-12-07 10:24:00 Test Item Value Reference Range Interpretation Comments Platelet (test code = Platelet) 185 133-450 [place] [address]-12-07 10:24:00 Test Item Value Reference Range Interpretation Comments MPV (test code = MPV) 8.4 7.4-10.4 [facility]2020-12-07 10:24:00 Test Item Value Reference Range Interpretation Comments Glucose Lvl (test code = Glucose Lvl) 66 70-99 [facility]2020-12-07 10:24:00 Test Item Value Reference Range Interpretation Comments BUN (test code = BUN) 19 7-22 [place] 570320-12-07 10:24:00 Test Item Value Reference Range Interpretation Comments Creatinine Lvl (test code = Creatinine 1.82 0.50-1.40 Lvl) [facility]2020-12-07 10:24:00 Test Item Value Reference Range Interpretation Comments Sodium Lvl (test code = Sodium Lvl) 139 135-145 [place] 570320-12-07 10:24:00 Test Item Value Reference Range Interpretation Comments Potassium Lvl (test code = Potassium 4.2 3.5-5.1 Lvl) [facility]2020-12-07 10:24:00 Test Item Value Reference Range Interpretation Comments Chloride Lvl (test code = Chloride Lvl) 105 95-109 [facility]2020-12-07 10:24:00 Test Item Value Reference Range Interpretation Comments CO2 (test code = CO2) 28 24-32 [facility]2020-12-07 10:24:00 Test Item Value Reference Range Interpretation Comments Calcium Lvl (test code = Calcium Lvl) 8.2 8.5-10.5 [facility]2020-12-07 10:24:00 Test Item Value Reference Range Interpretation Comments AGAP (test code = AGAP) 10.2 10.0-20.0 [facility]2020-12-07 10:24:00 Test Item Value Reference Range Interpretation Comments eGFR (test code = eGFR) 26 [facility] HospitalZrfncekXAKJRGVGHQ4194-57-06 10:24:00 Test Item Value Reference Range Interpretation Comments Segs (test code = Segs) 70.6 45.0-75.0 [place] 744040-12-07 10:24:00 Test Item Value Reference Range Interpretation Comments Lymphocytes (test code = Lymphocytes) 13.2 20.0-40.0 [facility] HospitalIbzomtdFHZVMIYZBP4398-76-42 10:24:00 Test Item Value Reference Range Interpretation Comments Monocytes (test code = Monocytes) 10.9 2.0-12.0 [facility] HospitalWijcsqpESKYCKWXFX8079-64-81 10:24:00 Test Item Value Reference Range Interpretation Comments Eosinophils (test code = 4.6 See_Comment [A utomated message] The Eosinophils) system which ge nerated this result tra nsmitted reference range : <=4.0. The reference r christiano was not used to int erpret this result as normal/abnormal . [facility] HospitalZgsszriHDSKXPHKZD9254-68-61 10:24:00 Test Item Value Reference Range Interpretation Comments Basophils (test code = 0.7 See_Comment [Aut omated message] The Basophils) system which ge nerated this result tra nsmitted reference range : <=1.0. The reference r christiano was not used to int erpret this result as normal/abnormal . [facility] HospitalVdyoufwJNTGDEANOP8859-77-54 10:24:00 Test Item Value Reference Range Interpretation Comments Neutrophils # (test code = Neutrophils 5.3 1.5-8.1 #) [facility] HospitalIubsboaABGVTSKSSP5678-45-97 10:24:00 Test Item Value Reference Range Interpretation Comments Lymphocytes # (test code = Lymphocytes 1.0 1.0-5.5 #) [place] 744040-12-07 10:24:00 Test Item Value Reference Range Interpretation Comments Monocytes # (test code 0.8 See_Comment [Aut omated message] The = Monocytes #) system which generated this result tra nsmitted reference range : <=0.8. The reference r christiano was not used to int erpret this result as normal/abnormal . [facility] HospitalFiwpmczQBDXKSSOJQ5292-89-77 10:24:00 Test Item Value Reference Range Interpretation Comments Eosinophils # (test code 0.3 See_Comment [A utomated message] The = Eosinophils #) system whic h generated this result tra nsmitted reference range : <=0.5. The reference r christiano was not used to int erpret this result as normal/abnormal . [facility] HospitalTpvjerfJYBYIWBPZJ2687-84-61 10:24:00 Test Item Value Reference Range Interpretation Comments Basophils # (test code 0.1 See_Comment [Aut omated message] The = Basophils #) system which generated this result tra nsmitted reference range : <=0.2. The reference r christiano was not used to int erpret this result as normal/abnormal . [facility] HospitalLxdpyqhETKAJTUXIR7765-80-39 10:24:00 Test Item Value Reference Range Interpretation Comments WBC (test code = WBC) 7.5 3.7-10.4 [facility] HospitalNnjzqhlSGLWJVTWQE9870-29-84 10:24:00 Test Item Value Reference Range Interpretation Comments RBC (test code = RBC) 3.85 4.20-5.40 [facility] HospitalTgnwyvpOFGJTWQQQH8430-13-97 10:24:00 Test Item Value Reference Range Interpretation Comments Hgb (test code = Hgb) 10.6 12.0-16.0 [facility] HospitalWhlrrtuZWHUHZILTS3730-92-37 10:24:00 Test Item Value Reference Range Interpretation Comments Hct (test code = Hct) 32.1 36.0-48.0 [facility] HospitalDvmyoyoEYGPESGVEI5862-41-40 10:24:00 Test Item Value Reference Range Interpretation Comments MCV (test code = MCV) 83.5 80.0-98.0 [place] 744040-12-07 10:24:00 Test Item Value Reference Range Interpretation Comments MCH (test code = MCH) 27.7 pg 27.0-31.0 [facility] HospitalPxgnxnmAJPSKEZEMQ8894-28-43 10:24:00 Test Item Value Reference Range Interpretation Comments MCHC (test code = MCHC) 33.1 32.0-36.0 [facility] HospitalIuvcgkhFKRSCAKXWL3679-57-23 10:24:00 Test Item Value Reference Range Interpretation Comments RDW (test code = RDW) 16.8 11.5-14.5 [facility] HospitalPdylsskZAZYDILFBT0148-27-77 10:24:00 Test Item Value Reference Range Interpretation Comments Platelet (test code = Platelet) 185 133-450 [facility]2020-12-07 10:24:00 Test Item Value Reference Range Interpretation Comments Glucose Lvl (test code = Glucose Lvl) 66 70-99 [facility]2020-12-07 10:24:00 Test Item Value Reference Range Interpretation Comments BUN (test code = BUN) 19 7-22 [facility]2020-12-07 10:24:00 Test Item Value Reference Range Interpretation Comments Creatinine Lvl (test code = Creatinine 1.82 0.50-1.40 Lvl) [facility]2020-12-07 10:24:00 Test Item Value Reference Range Interpretation Comments Sodium Lvl (test code = Sodium Lvl) 139 135-145 [facility]2020-12-07 10:24:00 Test Item Value Reference Range Interpretation Comments Potassium Lvl (test code = Potassium 4.2 3.5-5.1 Lvl) [facility]2020-12-07 10:24:00 Test Item Value Reference Range Interpretation Comments Chloride Lvl (test code = Chloride Lvl) 105 95-109 [facility] [facility]7817[facility] 10:24:00 Test Item Value Reference Range Interpretation Comments MPV (test code = MPV) 8.4 7.4-10.4 [facility]2020-12-07 10:24:00 Test Item Value Reference Range Interpretation Comments CO2 (test code = CO2) 28 24-32 [facility]2020-12-07 10:24:00 Test Item Value Reference Range Interpretation Comments Calcium Lvl (test code = Calcium Lvl) 8.2 8.5-10.5 [facility]2020-12-07 10:24:00 Test Item Value Reference Range Interpretation Comments AGAP (test code = AGAP) 10.2 10.0-20.0 [facility]2020-12-07 10:24:00 Test Item Value Reference Range Interpretation Comments eGFR (test code = eGFR) 26 [facility]qcywtIYMPZFOJSV5659-60-76 10:24:00 Test Item Value Reference Range Interpretation Comments Segs (test code = Segs) 70.6 45.0-75.0 [facility]MgrklrgICLNLNTHHE1012-92-89 10:24:00 Test Item Value Reference Range Interpretation Comments Lymphocytes (test code = Lymphocytes) 13.2 20.0-40.0 [facility] HospitalMhotbwmBZNQSFBDXQ9173-64-43 10:24:00 Test Item Value Reference Range Interpretation Comments Monocytes (test code = Monocytes) 10.9 2.0-12.0 [facility] HospitalThlfjjxFEPWQQKROY6194-29-42 10:24:00 Test Item Value Reference Range Interpretation Comments Eosinophils (test code = 4.6 See_Comment [A utomated message] The Eosinophils) system which ge nerated this result tra nsmitted reference range : <=4.0. The reference r christiano was not used to int erpret this result as normal/abnormal . [facility] HospitalElacbawMLSNTTAFKC3881-69-76 10:24:00 Test Item Value Reference Range Interpretation Comments Basophils (test code = 0.7 See_Comment [Aut omated message] The Basophils) system which ge nerated this result tra nsmitted reference range : <=1.0. The reference r christiano was not used to int erpret this result as normal/abnormal . [facility] HospitalKjnhpxgNSUASVBXNE2628-28-50 10:24:00 Test Item Value Reference Range Interpretation Comments Neutrophils # (test code = Neutrophils 5.3 1.5-8.1 #) [facility] HospitalMhixlfgFYQPFCZBXH8541-59-32 10:24:00 Test Item Value Reference Range Interpretation Comments Lymphocytes # (test code = Lymphocytes 1.0 1.0-5.5 #) [place] 744040-12-07 10:24:00 Test Item Value Reference Range Interpretation Comments Monocytes # (test code 0.8 See_Comment [Aut omated message] The = Monocytes #) system which generated this result tra nsmitted reference range : <=0.8. The reference r christiano was not used to int erpret this result as normal/abnormal . [place] 744040-12-07 10:24:00 Test Item Value Reference Range Interpretation Comments Eosinophils # (test code 0.3 See_Comment [A utomated message] The = Eosinophils #) system whic h generated this result tra nsmitted reference range : <=0.5. The reference r christiano was not used to int erpret this result as normal/abnormal . [facility] HospitalWheokbzVTQMKYDWQQ5790-47-42 10:24:00 Test Item Value Reference Range Interpretation Comments Basophils # (test code 0.1 See_Comment [Aut omated message] The = Basophils #) system which generated this result tra nsmitted reference range : <=0.2. The reference r christiano was not used to int erpret this result as normal/abnormal . [facility] HospitalWewhyhcDJGBHMJCWV7133-35-60 10:24:00 Test Item Value Reference Range Interpretation Comments WBC (test code = WBC) 7.5 3.7-10.4 [facility] HospitalOqmbnfoXYZRVNFSPW6129-92-56 10:24:00 Test Item Value Reference Range Interpretation Comments RBC (test code = RBC) 3.85 4.20-5.40 [facility] HospitalGdzjcemWTXQYTFLVD9129-15-73 10:24:00 Test Item Value Reference Range Interpretation Comments Hgb (test code = Hgb) 10.6 12.0-16.0 [facility] HospitalHlofinmWVCVLQCHKZ7714-56-33 10:24:00 Test Item Value Reference Range Interpretation Comments Hct (test code = Hct) 32.1 36.0-48.0 [facility] HospitalAelhswnPXQIOMQEZJ0865-53-16 10:24:00 Test Item Value Reference Range Interpretation Comments MCV (test code = MCV) 83.5 80.0-98.0 [facility] HospitalDkjpherMDUVLXZSAD0030-96-23 10:24:00 Test Item Value Reference Range Interpretation Comments MCH (test code = MCH) 27.7 pg 27.0-31.0 [facility] HospitalRaxwlyfDTHBZAXNNH1999-71-29 10:24:00 Test Item Value Reference Range Interpretation Comments MCHC (test code = MCHC) 33.1 32.0-36.0 [facility] HospitalRvajzodYTGTCIGAGR1308-88-68 10:24:00 Test Item Value Reference Range Interpretation Comments RDW (test code = RDW) 16.8 11.5-14.5 [facility] HospitalXcsfcxvBGVUZMBVOG9944-24-39 10:24:00 Test Item Value Reference Range Interpretation Comments Platelet (test code = Platelet) 185 133-450 [facility] HospitalEybgeqvMPEZDJXUWU7143-94-01 10:24:00 Test Item Value Reference Range Interpretation Comments MPV (test code = MPV) 8.4 7.4-10.4 [facility]2020-12-07 10:24:00 Test Item Value Reference Range Interpretation Comments Glucose Lvl (test code = Glucose Lvl) 66 70-99 [place] 570320-12-07 10:24:00 Test Item Value Reference Range Interpretation Comments BUN (test code = BUN) 19 7-22 [place] 570320-12-07 10:24:00 Test Item Value Reference Range Interpretation Comments Creatinine Lvl (test code = Creatinine 1.82 0.50-1.40 Lvl) [facility]2020-12-07 10:24:00 Test Item Value Reference Range Interpretation Comments Sodium Lvl (test code = Sodium Lvl) 139 135-145 [place] 570320-12-07 10:24:00 Test Item Value Reference Range Interpretation Comments Potassium Lvl (test code = Potassium 4.2 3.5-5.1 Lvl) [facility]2020-12-07 10:24:00 Test Item Value Reference Range Interpretation Comments Chloride Lvl (test code = Chloride Lvl) 105 95-109 [facility]2020-12-07 10:24:00 Test Item Value Reference Range Interpretation Comments CO2 (test code = CO2) 28 24-32 [facility]2020-12-07 10:24:00 Test Item Value Reference Range Interpretation Comments Calcium Lvl (test code = Calcium Lvl) 8.2 8.5-10.5 [facility]2020-12-07 10:24:00 Test Item Value Reference Range Interpretation Comments AGAP (test code = AGAP) 10.2 10.0-20.0 [place] 570320-12-07 10:24:00 Test Item Value Reference Range Interpretation Comments eGFR (test code = eGFR) 26 [place] 744040-12-07 10:24:00 Test Item Value Reference Range Interpretation Comments Segs (test code = Segs) 70.6 45.0-75.0 [facility] HospitalEaqemdoDIDDDBDUAO2940-26-21 10:24:00 Test Item Value Reference Range Interpretation Comments Lymphocytes (test code = Lymphocytes) 13.2 20.0-40.0 [facility] HospitalJiqujwsDBGUBXYDJI3342-31-13 10:24:00 Test Item Value Reference Range Interpretation Comments Monocytes (test code = Monocytes) 10.9 2.0-12.0 [facility] HospitalOtqwxrwUZQSQAGMWS8745-38-34 10:24:00 Test Item Value Reference Range Interpretation Comments Eosinophils (test code = 4.6 See_Comment [A utomated message] The Eosinophils) system which ge nerated this result tra nsmitted reference range : <=4.0. The reference r christiano was not used to int erpret this result as normal/abnormal . [facility] HospitalGdllwubQBVIYGVXLY7842-28-49 10:24:00 Test Item Value Reference Range Interpretation Comments Basophils (test code = 0.7 See_Comment [Aut omated message] The Basophils) system which ge nerated this result tra nsmitted reference range : <=1.0. The reference r christiano was not used to int erpret this result as normal/abnormal . [facility] HospitalMgybhorPTAYYMESCY5176-86-25 10:24:00 Test Item Value Reference Range Interpretation Comments Neutrophils # (test code = Neutrophils 5.3 1.5-8.1 #) [facility] HospitalLxavqueBDDSEBVLCX1052-20-99 10:24:00 Test Item Value Reference Range Interpretation Comments Lymphocytes # (test code = Lymphocytes 1.0 1.0-5.5 #) [facility] HospitalEnyquvnAGFHEHTMNT0770-30-49 10:24:00 Test Item Value Reference Range Interpretation Comments Monocytes # (test code 0.8 See_Comment [Aut omated message] The = Monocytes #) system which generated this result tra nsmitted reference range : <=0.8. The reference r christiano was not used to int erpret this result as normal/abnormal . [facility] HospitalEusceisVMXQYKPKRU2092-24-33 10:24:00 Test Item Value Reference Range Interpretation Comments Eosinophils # (test code 0.3 See_Comment [A utomated message] The = Eosinophils #) system whic h generated this result tra nsmitted reference range : <=0.5. The reference r christiano was not used to int erpret this result as normal/abnormal . [facility] HospitalBjaohxiMJQYDASNZH2405-98-08 10:24:00 Test Item Value Reference Range Interpretation Comments Basophils # (test code 0.1 See_Comment [Aut omated message] The = Basophils #) system which generated this result tra nsmitted reference range : <=0.2. The reference r christiano was not used to int erpret this result as normal/abnormal . [facility] HospitalKjqzkrqRGMCXNOBBW4724-71-71 10:24:00 Test Item Value Reference Range Interpretation Comments WBC (test code = WBC) 7.5 3.7-10.4 [facility] HospitalDtakpnrGSTSYZUWDI9796-25-60 10:24:00 Test Item Value Reference Range Interpretation Comments RBC (test code = RBC) 3.85 4.20-5.40 [facility] HospitalBcadpebWDJYZONBZK8369-21-64 10:24:00 Test Item Value Reference Range Interpretation Comments Hgb (test code = Hgb) 10.6 12.0-16.0 [facility] HospitalOkixdyiKBHDQWVINU5264-86-88 10:24:00 Test Item Value Reference Range Interpretation Comments Hct (test code = Hct) 32.1 36.0-48.0 [facility] HospitalPtfykfcEASRAINIVF2511-05-35 10:24:00 Test Item Value Reference Range Interpretation Comments MCV (test code = MCV) 83.5 80.0-98.0 [facility] HospitalFrtczkfPSPKNJRUGG8298-94-33 10:24:00 Test Item Value Reference Range Interpretation Comments MCH (test code = MCH) 27.7 pg 27.0-31.0 [facility] HospitalFydhvadBPSDSUZPAU1186-98-54 10:24:00 Test Item Value Reference Range Interpretation Comments MCHC (test code = MCHC) 33.1 32.0-36.0 [facility] HospitalNhycnmpNKGUCKAJPT2947-04-76 10:24:00 Test Item Value Reference Range Interpretation Comments RDW (test code = RDW) 16.8 11.5-14.5 [facility] HospitalPwbbxmvOTKWTNBBJW5795-75-97 10:24:00 Test Item Value Reference Range Interpretation Comments Platelet (test code = Platelet) 185 133-450 [facility] HospitalBrwsojyLBGEMBCNVB9888-27-85 10:24:00 Test Item Value Reference Range Interpretation Comments MPV (test code = MPV) 8.4 7.4-10.4 [facility]2020-12-07 10:24:00 Test Item Value Reference Range Interpretation Comments Glucose Lvl (test code = Glucose Lvl) 66 70-99 [facility]2020-12-07 10:24:00 Test Item Value Reference Range Interpretation Comments BUN (test code = BUN) 19 7-22 [facility]2020-12-07 10:24:00 Test Item Value Reference Range Interpretation Comments Creatinine Lvl (test code = Creatinine 1.82 0.50-1.40 Lvl) [facility]2020-12-07 10:24:00 Test Item Value Reference Range Interpretation Comments Sodium Lvl (test code = Sodium Lvl) 139 135-145 [facility]2020-12-07 10:24:00 Test Item Value Reference Range Interpretation Comments Potassium Lvl (test code = Potassium 4.2 3.5-5.1 Lvl) [facility]2020-12-07 10:24:00 Test Item Value Reference Range Interpretation Comments Chloride Lvl (test code = Chloride Lvl) 105 95-109 [facility]2020-12-07 10:24:00 Test Item Value Reference Range Interpretation Comments CO2 (test code = CO2) 28 24-32 [facility]2020-12-07 10:24:00 Test Item Value Reference Range Interpretation Comments Calcium Lvl (test code = Calcium Lvl) 8.2 8.5-10.5 [facility]2020-12-07 10:24:00 Test Item Value Reference Range Interpretation Comments AGAP (test code = AGAP) 10.2 10.0-20.0 [facility]2020-12-07 10:24:00 Test Item Value Reference Range Interpretation Comments eGFR (test code = eGFR) 26 [facility] HospitalQnfzrosRZTITPFJNF7169-90-47 10:24:00 Test Item Value Reference Range Interpretation Comments Segs (test code = Segs) 70.6 45.0-75.0 [place] 744040-12-07 10:24:00 Test Item Value Reference Range Interpretation Comments Lymphocytes (test code = Lymphocytes) 13.2 20.0-40.0 [place] 744040-12-07 10:24:00 Test Item Value Reference Range Interpretation Comments Monocytes (test code = Monocytes) 10.9 2.0-12.0 [place] [address]-12-07 10:24:00 Test Item Value Reference Range Interpretation Comments Eosinophils (test code = 4.6 See_Comment [A utomated message] The Eosinophils) system which ge nerated this result tra nsmitted reference range : <=4.0. The reference r christiano was not used to int erpret this result as normal/abnormal . [facility] HospitalKbkbqqjIUFRVGJUHR1450-85-87 10:24:00 Test Item Value Reference Range Interpretation Comments Basophils (test code = 0.7 See_Comment [Aut omated message] The Basophils) system which ge nerated this result tra nsmitted reference range : <=1.0. The reference r christiano was not used to int erpret this result as normal/abnormal . [facility] HospitalPinlvteUOWVWRMMTP4896-74-33 10:24:00 Test Item Value Reference Range Interpretation Comments Neutrophils # (test code = Neutrophils 5.3 1.5-8.1 #) [facility] HospitalDznrkgmUJZEODQAQD0529-42-93 10:24:00 Test Item Value Reference Range Interpretation Comments Lymphocytes # (test code = Lymphocytes 1.0 1.0-5.5 #) [facility] HospitalGjgeklcSEAFEHLSLN7032-47-02 10:24:00 Test Item Value Reference Range Interpretation Comments Monocytes # (test code 0.8 See_Comment [Aut omated message] The = Monocytes #) system which generated this result tra nsmitted reference range : <=0.8. The reference r christiano was not used to int erpret this result as normal/abnormal . [facility] HospitalVhycvtgAZTISVVOTL9502-03-00 10:24:00 Test Item Value Reference Range Interpretation Comments Eosinophils # (test code 0.3 See_Comment [A utomated message] The = Eosinophils #) system wh h generated this result tra nsmitted reference range : <=0.5. The reference r christiano was not used to int erpret this result as normal/abnormal . [facility] HospitalQnhpsgnKUOQPOWCRM1985-10-75 10:24:00 Test Item Value Reference Range Interpretation Comments Basophils # (test code 0.1 See_Comment [Aut omated message] The = Basophils #) system which generated this result tra nsmitted reference range : <=0.2. The reference r christiano was not used to int erpret this result as normal/abnormal . [facility] HospitalZfylyfcIOKNGURJSO8762-23-86 10:24:00 Test Item Value Reference Range Interpretation Comments WBC (test code = WBC) 7.5 3.7-10.4 [place] 744040-12-07 10:24:00 Test Item Value Reference Range Interpretation Comments RBC (test code = RBC) 3.85 4.20-5.40 [place] 744040-12-07 10:24:00 Test Item Value Reference Range Interpretation Comments Hgb (test code = Hgb) 10.6 12.0-16.0 [place] [address]-12-07 10:24:00 Test Item Value Reference Range Interpretation Comments Hct (test code = Hct) 32.1 36.0-48.0 [place] [address]-12-07 10:24:00 Test Item Value Reference Range Interpretation Comments MCV (test code = MCV) 83.5 80.0-98.0 [place] [address]-12-07 10:24:00 Test Item Value Reference Range Interpretation Comments MCH (test code = MCH) 27.7 pg 27.0-31.0 [place] [address]-12-07 10:24:00 Test Item Value Reference Range Interpretation Comments MCHC (test code = MCHC) 33.1 32.0-36.0 [place] [address]-12-07 10:24:00 Test Item Value Reference Range Interpretation Comments RDW (test code = RDW) 16.8 11.5-14.5 [facility] HospitalCxczdrcZWDMEOSLKM9399-10-60 10:24:00 Test Item Value Reference Range Interpretation Comments Platelet (test code = Platelet) 185 133-450 [facility] HospitalZbdniwvQHZMDAZZKP2513-23-92 10:24:00 Test Item Value Reference Range Interpretation Comments MPV (test code = MPV) 8.4 7.4-10.4 [facility]2020-12-07 10:24:00 Test Item Value Reference Range Interpretation Comments Glucose Lvl (test code = Glucose Lvl) 66 70-99 [facility]2020-12-07 10:24:00 Test Item Value Reference Range Interpretation Comments BUN (test code = BUN) 19 7-22 [place] 570320-12-07 10:24:00 Test Item Value Reference Range Interpretation Comments Creatinine Lvl (test code = Creatinine 1.82 0.50-1.40 Lvl) [facility]2020-12-07 10:24:00 Test Item Value Reference Range Interpretation Comments Sodium Lvl (test code = Sodium Lvl) 139 135-145 [facility]2020-12-07 10:24:00 Test Item Value Reference Range Interpretation Comments Potassium Lvl (test code = Potassium 4.2 3.5-5.1 Lvl) [facility]2020-12-07 10:24:00 Test Item Value Reference Range Interpretation Comments Chloride Lvl (test code = Chloride Lvl) 105 95-109 [place] 570320-12-07 10:24:00 Test Item Value Reference Range Interpretation Comments CO2 (test code = CO2) 28 24-32 [place] 570320-12-07 10:24:00 Test Item Value Reference Range Interpretation Comments Calcium Lvl (test code = Calcium Lvl) 8.2 8.5-10.5 [facility]2020-12-07 10:24:00 Test Item Value Reference Range Interpretation Comments AGAP (test code = AGAP) 10.2 10.0-20.0 [facility]2020-12-07 10:24:00 Test Item Value Reference Range Interpretation Comments eGFR (test code = eGFR) 26 [facility] HospitalIivgqflLYSIEXXYPL7120-19-59 10:24:00 Test Item Value Reference Range Interpretation Comments Segs (test code = Segs) 70.6 45.0-75.0 [facility] HospitalFtbsshpCYSAZCLLGP8631-44-61 10:24:00 Test Item Value Reference Range Interpretation Comments Lymphocytes (test code = Lymphocytes) 13.2 20.0-40.0 [place] 744040-12-07 10:24:00 Test Item Value Reference Range Interpretation Comments Monocytes (test code = Monocytes) 10.9 2.0-12.0 [place] [address]-12-07 10:24:00 Test Item Value Reference Range Interpretation Comments Eosinophils (test code = 4.6 See_Comment [A utomated message] The Eosinophils) system which ge nerated this result tra nsmitted reference range : <=4.0. The reference r christiano was not used to int erpret this result as normal/abnormal . [facility] HospitalFympevmIYZDMJFKBO9370-31-04 10:24:00 Test Item Value Reference Range Interpretation Comments Basophils (test code = 0.7 See_Comment [Aut omated message] The Basophils) system which ge nerated this result tra nsmitted reference range : <=1.0. The reference r christiano was not used to int erpret this result as normal/abnormal . [facility] HospitalVcxzccyVZGQJUVKAC7444-75-59 10:24:00 Test Item Value Reference Range Interpretation Comments Neutrophils # (test code = Neutrophils 5.3 1.5-8.1 #) [facility] HospitalXwqbtdlPZNTNOVBCH9842-01-40 10:24:00 Test Item Value Reference Range Interpretation Comments Lymphocytes # (test code = Lymphocytes 1.0 1.0-5.5 #) [facility] HospitalSbhndsyRMDEXKIAKK3525-18-75 10:24:00 Test Item Value Reference Range Interpretation Comments Monocytes # (test code 0.8 See_Comment [Aut omated message] The = Monocytes #) system which generated this result tra nsmitted reference range : <=0.8. The reference r christiano was not used to int erpret this result as normal/abnormal . [facility] HospitalQjeodmgDQXNCHQNGX8263-79-57 10:24:00 Test Item Value Reference Range Interpretation Comments Eosinophils # (test code 0.3 See_Comment [A utomated message] The = Eosinophils #) system whic h generated this result tra nsmitted reference range : <=0.5. The reference r christiano was not used to int erpret this result as normal/abnormal . [facility] HospitalVbbdompTCEBUNKIJJ0218-41-29 10:24:00 Test Item Value Reference Range Interpretation Comments Basophils # (test code 0.1 See_Comment [Aut omated message] The = Basophils #) system which generated this result tra nsmitted reference range : <=0.2. The reference r christiano was not used to int erpret this result as normal/abnormal . [facility] HospitalYxncbhqGYICNXLUQU2903-49-54 10:24:00 Test Item Value Reference Range Interpretation Comments WBC (test code = WBC) 7.5 3.7-10.4 [facility] HospitalRnpilqnLNBQOREAKJ9393-04-84 10:24:00 Test Item Value Reference Range Interpretation Comments RBC (test code = RBC) 3.85 4.20-5.40 [place] 744040-12-07 10:24:00 Test Item Value Reference Range Interpretation Comments Hgb (test code = Hgb) 10.6 12.0-16.0 [facility] HospitalYhlijdsREGZUIWONF9883-89-89 10:24:00 Test Item Value Reference Range Interpretation Comments Hct (test code = Hct) 32.1 36.0-48.0 [place] 744040-12-07 10:24:00 Test Item Value Reference Range Interpretation Comments MCV (test code = MCV) 83.5 80.0-98.0 [place] [address]-12-07 10:24:00 Test Item Value Reference Range Interpretation Comments MCH (test code = MCH) 27.7 pg 27.0-31.0 [place] [address]-12-07 10:24:00 Test Item Value Reference Range Interpretation Comments MCHC (test code = MCHC) 33.1 32.0-36.0 [place] 744040-12-07 10:24:00 Test Item Value Reference Range Interpretation Comments RDW (test code = RDW) 16.8 11.5-14.5 [place] [address]-12-07 10:24:00 Test Item Value Reference Range Interpretation Comments Platelet (test code = Platelet) 185 133-450 [facility] HospitalKwqghoxNFVFJEEWGU2960-45-24 10:24:00 Test Item Value Reference Range Interpretation Comments MPV (test code = MPV) 8.4 7.4-10.4 [facility]2020-12-07 10:24:00 Test Item Value Reference Range Interpretation Comments Glucose Lvl (test code = Glucose Lvl) 66 70-99 [facility]2020-12-07 10:24:00 Test Item Value Reference Range Interpretation Comments BUN (test code = BUN) 19 7-22 [facility]2020-12-07 10:24:00 Test Item Value Reference Range Interpretation Comments Creatinine Lvl (test code = Creatinine 1.82 0.50-1.40 Lvl) [facility]2020-12-07 10:24:00 Test Item Value Reference Range Interpretation Comments Sodium Lvl (test code = Sodium Lvl) 139 135-145 [facility]2020-12-07 10:24:00 Test Item Value Reference Range Interpretation Comments Potassium Lvl (test code = Potassium 4.2 3.5-5.1 Lvl) [facility]2020-12-07 10:24:00 Test Item Value Reference Range Interpretation Comments Chloride Lvl (test code = Chloride Lvl) 105 95-109 [facility]2020-12-07 10:24:00 Test Item Value Reference Range Interpretation Comments CO2 (test code = CO2) 28 24-32 [place] 570320-12-07 10:24:00 Test Item Value Reference Range Interpretation Comments Calcium Lvl (test code = Calcium Lvl) 8.2 8.5-10.5 [place] 570320-12-07 10:24:00 Test Item Value Reference Range Interpretation Comments AGAP (test code = AGAP) 10.2 10.0-20.0 [place] [address]-12-07 10:24:00 Test Item Value Reference Range Interpretation Comments eGFR (test code = eGFR) 26 [facility] HospitalOsdimjmGSNKGPJDTX2304-62-25 10:24:00 Test Item Value Reference Range Interpretation Comments Segs (test code = Segs) 70.6 45.0-75.0 [place] 744040-12-07 10:24:00 Test Item Value Reference Range Interpretation Comments Lymphocytes (test code = Lymphocytes) 13.2 20.0-40.0 [place] 744040-12-07 10:24:00 Test Item Value Reference Range Interpretation Comments Monocytes (test code = Monocytes) 10.9 2.0-12.0 [facility] [facility]1151[facility]-69 10:24:00 Test Item Value Reference Range Interpretation Comments Eosinophils (test code = 4.6 See_Comment [A utomated message] The Eosinophils) system which ge nerated this result tra nsmitted reference range : <=4.0. The reference r christiano was not used to int erpret this result as normal/abnormal . [place] 744040-12-07 10:24:00 Test Item Value Reference Range Interpretation Comments Basophils (test code = 0.7 See_Comment [Aut omated message] The Basophils) system which ge nerated this result tra nsmitted reference range : <=1.0. The reference r christiano was not used to int erpret this result as normal/abnormal . [place] 744040-12-07 10:24:00 Test Item Value Reference Range Interpretation Comments Neutrophils # (test code = Neutrophils 5.3 1.5-8.1 #) [place] 744040-12-07 10:24:00 Test Item Value Reference Range Interpretation Comments Lymphocytes # (test code = Lymphocytes 1.0 1.0-5.5 #) [facility]ag[facility]glTETXEZMVSH9625-68-70 10:24:00 Test Item Value Reference Range Interpretation Comments Monocytes # (test code 0.8 See_Comment [Aut omated message] The = Monocytes #) system which generated this result tra nsmitted reference range : <=0.8. The reference r christiano was not used to int erpret this result as normal/abnormal . [facility] HospitalJkcbdvbTHHCBIMYVL1855-36-21 10:24:00 Test Item Value Reference Range Interpretation Comments Eosinophils # (test code 0.3 See_Comment [A utomated message] The = Eosinophils #) system whic h generated this result tra nsmitted reference range : <=0.5. The reference r christiano was not used to int erpret this result as normal/abnormal . [facility] HospitalRswyzbyXGPEZQFRKJ3303-00-27 10:24:00 Test Item Value Reference Range Interpretation Comments Basophils # (test code 0.1 See_Comment [Aut omated message] The = Basophils #) system which generated this result tra nsmitted reference range : <=0.2. The reference r christiano was not used to int erpret this result as normal/abnormal . [facility] HospitalTzppiyyVTAFINKTQG8838-41-11 10:24:00 Test Item Value Reference Range Interpretation Comments WBC (test code = WBC) 7.5 3.7-10.4 [place] 744040-12-07 10:24:00 Test Item Value Reference Range Interpretation Comments RBC (test code = RBC) 3.85 4.20-5.40 [place] 744040-12-07 10:24:00 Test Item Value Reference Range Interpretation Comments Hgb (test code = Hgb) 10.6 12.0-16.0 [place] [address]-12-07 10:24:00 Test Item Value Reference Range Interpretation Comments Hct (test code = Hct) 32.1 36.0-48.0 [facility] HospitalSncvcqdDLDHULRRQU6817-44-58 10:24:00 Test Item Value Reference Range Interpretation Comments MCV (test code = MCV) 83.5 80.0-98.0 [facility] HospitalImlhcqqIECSXWQVDH1658-49-96 10:24:00 Test Item Value Reference Range Interpretation Comments MCH (test code = MCH) 27.7 pg 27.0-31.0 [facility] HospitalShpglrhCRVSCSAHHE6955-46-38 10:24:00 Test Item Value Reference Range Interpretation Comments MCHC (test code = MCHC) 33.1 32.0-36.0 [facility] HospitalXinnjqrRIGNQXIFNE2071-46-12 10:24:00 Test Item Value Reference Range Interpretation Comments RDW (test code = RDW) 16.8 11.5-14.5 [facility] HospitalOydacsgJLKJJPTGOO4420-82-82 10:24:00 Test Item Value Reference Range Interpretation Comments Platelet (test code = Platelet) 185 133-450 [facility] HospitalVaarbxrNPNNFVXIRI2386-15-87 10:24:00 Test Item Value Reference Range Interpretation Comments MPV (test code = MPV) 8.4 7.4-10.4 [facility]2020-12-07 10:24:00 Test Item Value Reference Range Interpretation Comments Glucose Lvl (test code = Glucose Lvl) 66 70-99 [facility]2020-12-07 10:24:00 Test Item Value Reference Range Interpretation Comments BUN (test code = BUN) 19 -22 [facility]2020-12-07 10:24:00 Test Item Value Reference Range Interpretation Comments Creatinine Lvl (test code = Creatinine 1.82 0.50-1.40 Lvl) [facility]2020-12-07 10:24:00 Test Item Value Reference Range Interpretation Comments Sodium Lvl (test code = Sodium Lvl) 139 135-145 [facility]2020-12-07 10:24:00 Test Item Value Reference Range Interpretation Comments Potassium Lvl (test code = Potassium 4.2 3.5-5.1 Lvl) [facility]2020-12-07 10:24:00 Test Item Value Reference Range Interpretation Comments Chloride Lvl (test code = Chloride Lvl) 105 95-109 [facility]2020-12-07 10:24:00 Test Item Value Reference Range Interpretation Comments CO2 (test code = CO2) 28 -32 [place] 570320-12-07 10:24:00 Test Item Value Reference Range Interpretation Comments Calcium Lvl (test code = Calcium Lvl) 8.2 8.5-10.5 [place] 570320-12-07 10:24:00 Test Item Value Reference Range Interpretation Comments AGAP (test code = AGAP) 10.2 10.0-20.0 [facility]2020-12-07 10:24:00 Test Item Value Reference Range Interpretation Comments eGFR (test code = eGFR) 26 [facility] HospitalGvxbralTKARLIQGCY9729-67-53 10:24:00 Test Item Value Reference Range Interpretation Comments Segs (test code = Segs) 70.6 45.0-75.0 [facility] HospitalOolvjxmSTCXDQWVPQ1282-28-57 10:24:00 Test Item Value Reference Range Interpretation Comments Lymphocytes (test code = Lymphocytes) 13.2 20.0-40.0 [facility] HospitalCtsovwpQZUFSJTAEG4570-69-67 10:24:00 Test Item Value Reference Range Interpretation Comments Monocytes (test code = Monocytes) 10.9 2.0-12.0 [facility] HospitalUnhffwvQCCUGUXIJN9303-48-10 10:24:00 Test Item Value Reference Range Interpretation Comments Eosinophils (test code = 4.6 See_Comment [A utomated message] The Eosinophils) system which ge nerated this result tra nsmitted reference range : <=4.0. The reference r christiano was not used to int erpret this result as normal/abnormal . [facility] HospitalJtbcwlyMIMSQQZUPA0922-68-19 10:24:00 Test Item Value Reference Range Interpretation Comments Basophils (test code = 0.7 See_Comment [Aut omated message] The Basophils) system which ge nerated this result tra nsmitted reference range : <=1.0. The reference r christiano was not used to int erpret this result as normal/abnormal . [facility] HospitalYxyncykWYNQGTSYKT9246-55-54 10:24:00 Test Item Value Reference Range Interpretation Comments Neutrophils # (test code = Neutrophils 5.3 1.5-8.1 #) [facility] HospitalDwnqresJIZDBDXZDB5947-46-94 10:24:00 Test Item Value Reference Range Interpretation Comments Lymphocytes # (test code = Lymphocytes 1.0 1.0-5.5 #) [facility] HospitalRocsgfzWDDDPNDDZG5810-72-57 10:24:00 Test Item Value Reference Range Interpretation Comments Monocytes # (test code 0.8 See_Comment [Aut omated message] The = Monocytes #) system which generated this result tra nsmitted reference range : <=0.8. The reference r christiano was not used to int erpret this result as normal/abnormal . [facility] HospitalEwrizolQCXWKIIRGA7093-42-40 10:24:00 Test Item Value Reference Range Interpretation Comments Eosinophils # (test code 0.3 See_Comment [A utomated message] The = Eosinophils #) system whic h generated this result tra nsmitted reference range : <=0.5. The reference r christiano was not used to int erpret this result as normal/abnormal . [facility] HospitalNlxpauwZYBXBOQTBM5643-55-32 10:24:00 Test Item Value Reference Range Interpretation Comments Basophils # (test code 0.1 See_Comment [Aut omated message] The = Basophils #) system which generated this result tra nsmitted reference range : <=0.2. The reference r christiano was not used to int erpret this result as normal/abnormal . [facility] HospitalEklysnuVEDXHPMJDR6609-00-44 10:24:00 Test Item Value Reference Range Interpretation Comments WBC (test code = WBC) 7.5 3.7-10.4 [facility] HospitalUljdhjkJLUQAKDUGY8378-24-83 10:24:00 Test Item Value Reference Range Interpretation Comments RBC (test code = RBC) 3.85 4.20-5.40 [facility] HospitalWoydasbWIRFUGMJRL9819-37-88 10:24:00 Test Item Value Reference Range Interpretation Comments Hgb (test code = Hgb) 10.6 12.0-16.0 [facility] HospitalKffwxpgAKRGPGNZHX6139-36-40 10:24:00 Test Item Value Reference Range Interpretation Comments Hct (test code = Hct) 32.1 36.0-48.0 [facility] HospitalIadxlmuLAKDRQGOEQ7687-05-97 10:24:00 Test Item Value Reference Range Interpretation Comments MCV (test code = MCV) 83.5 80.0-98.0 [facility] HospitalExanxqnVTJEBZUSGH0981-01-28 10:24:00 Test Item Value Reference Range Interpretation Comments MCH (test code = MCH) 27.7 pg 27.0-31.0 [facility] HospitalQuxaykkXNGPRZLOVT4296-79-93 10:24:00 Test Item Value Reference Range Interpretation Comments MCHC (test code = MCHC) 33.1 32.0-36.0 [facility] HospitalBtflqirSNVJRQAIOB7076-99-95 10:24:00 Test Item Value Reference Range Interpretation Comments RDW (test code = RDW) 16.8 11.5-14.5 [place] 744040-12-07 10:24:00 Test Item Value Reference Range Interpretation Comments Platelet (test code = Platelet) 185 133-450 [facility] HospitalAiwvoxiPFDFKOETUE2387-10-93 10:24:00 Test Item Value Reference Range Interpretation Comments MPV (test code = MPV) 8.4 7.4-10.4 [facility]2020-12-07 10:24:00 Test Item Value Reference Range Interpretation Comments Glucose Lvl (test code = Glucose Lvl) 66 70-99 [place] 570320-12-07 10:24:00 Test Item Value Reference Range Interpretation Comments BUN (test code = BUN) 19 7-22 [place] 570320-12-07 10:24:00 Test Item Value Reference Range Interpretation Comments Creatinine Lvl (test code = Creatinine 1.82 0.50-1.40 Lvl) [facility]2020-12-07 10:24:00 Test Item Value Reference Range Interpretation Comments Sodium Lvl (test code = Sodium Lvl) 139 135-145 [place] 570320-12-07 10:24:00 Test Item Value Reference Range Interpretation Comments Potassium Lvl (test code = Potassium 4.2 3.5-5.1 Lvl) [facility]2020-12-07 10:24:00 Test Item Value Reference Range Interpretation Comments Chloride Lvl (test code = Chloride Lvl) 105 95-109 [facility]2020-12-07 10:24:00 Test Item Value Reference Range Interpretation Comments CO2 (test code = CO2) 28 24-32 [place] 570320-12-07 10:24:00 Test Item Value Reference Range Interpretation Comments Calcium Lvl (test code = Calcium Lvl) 8.2 8.5-10.5 [facility]2020-12-07 10:24:00 Test Item Value Reference Range Interpretation Comments AGAP (test code = AGAP) 10.2 10.0-20.0 [facility]2020-12-07 10:24:00 Test Item Value Reference Range Interpretation Comments eGFR (test code = eGFR) 26 [place] 744040-12-07 10:24:00 Test Item Value Reference Range Interpretation Comments Segs (test code = Segs) 70.6 45.0-75.0 [facility] HospitalMsuyfmzFPUHQIDAVD4923-68-90 10:24:00 Test Item Value Reference Range Interpretation Comments Lymphocytes (test code = Lymphocytes) 13.2 20.0-40.0 [facility] HospitalFmorzfvWUQAGTOFMW0836-22-03 10:24:00 Test Item Value Reference Range Interpretation Comments Monocytes (test code = Monocytes) 10.9 2.0-12.0 [facility] HospitalKaegrfkXDWMOCMSVO4774-16-18 10:24:00 Test Item Value Reference Range Interpretation Comments Eosinophils (test code = 4.6 See_Comment [A utomated message] The Eosinophils) system which ge nerated this result tra nsmitted reference range : <=4.0. The reference r christiano was not used to int erpret this result as normal/abnormal . [facility] HospitalBebsbpfBXIQYEHYZL2006-79-58 10:24:00 Test Item Value Reference Range Interpretation Comments Basophils (test code = 0.7 See_Comment [Aut omated message] The Basophils) system which ge nerated this result tra nsmitted reference range : <=1.0. The reference r christiano was not used to int erpret this result as normal/abnormal . [facility] HospitalDnmiytgRWRJWTMNVU4365-77-84 10:24:00 Test Item Value Reference Range Interpretation Comments Neutrophils # (test code = Neutrophils 5.3 1.5-8.1 #) [facility] HospitalKywpoheCJAGLNZBRO1044-27-54 10:24:00 Test Item Value Reference Range Interpretation Comments Lymphocytes # (test code = Lymphocytes 1.0 1.0-5.5 #) [facility] HospitalKddnuwxFYUWHSKPID7092-45-96 10:24:00 Test Item Value Reference Range Interpretation Comments Monocytes # (test code 0.8 See_Comment [Aut omated message] The = Monocytes #) system which generated this result tra nsmitted reference range : <=0.8. The reference r christiaon was not used to int erpret this result as normal/abnormal . [facility] HospitalIwpqkjeDURHDLDZOR6064-56-24 10:24:00 Test Item Value Reference Range Interpretation Comments Eosinophils # (test code 0.3 See_Comment [A utomated message] The = Eosinophils #) system whic h generated this result tra nsmitted reference range : <=0.5. The reference r christiano was not used to int erpret this result as normal/abnormal . [place] 744040-12-07 10:24:00 Test Item Value Reference Range Interpretation Comments Basophils # (test code 0.1 See_Comment [Aut omated message] The = Basophils #) system which generated this result tra nsmitted reference range : <=0.2. The reference r christiano was not used to int erpret this result as normal/abnormal . [facility] HospitalMtxvgtiDRPTXAVJPH5276-47-10 10:24:00 Test Item Value Reference Range Interpretation Comments WBC (test code = WBC) 7.5 3.7-10.4 [facility] HospitalSyublvkDCPPPUFYKX5196-64-68 10:24:00 Test Item Value Reference Range Interpretation Comments RBC (test code = RBC) 3.85 4.20-5.40 [facility] HospitalEjftaicOQYAPJCWQV9357-39-29 10:24:00 Test Item Value Reference Range Interpretation Comments Hgb (test code = Hgb) 10.6 12.0-16.0 [facility] HospitalVzhakuaYRMSCHKHFF6186-83-79 10:24:00 Test Item Value Reference Range Interpretation Comments Hct (test code = Hct) 32.1 36.0-48.0 [facility] HospitalKyioyewHUCGIWLVUD5371-88-93 10:24:00 Test Item Value Reference Range Interpretation Comments MCV (test code = MCV) 83.5 80.0-98.0 [facility] HospitalJtlbknwWUTKMVEUAR9551-09-20 10:24:00 Test Item Value Reference Range Interpretation Comments MCH (test code = MCH) 27.7 pg 27.0-31.0 [facility] HospitalLwqcsomDVNDTXZTJI7695-95-03 10:24:00 Test Item Value Reference Range Interpretation Comments MCHC (test code = MCHC) 33.1 32.0-36.0 [facility] HospitalGyekydnHUYKXOIGNT6780-88-66 10:24:00 Test Item Value Reference Range Interpretation Comments RDW (test code = RDW) 16.8 11.5-14.5 [facility] HospitalPtgyqmpKRFMBHLBDM7363-95-52 10:24:00 Test Item Value Reference Range Interpretation Comments Platelet (test code = Platelet) 185 133-450 [facility] HospitalBwndcwyTQHSQREUQQ4765-23-45 10:24:00 Test Item Value Reference Range Interpretation Comments MPV (test code = MPV) 8.4 7.4-10.4 [facility]2020-12-07 10:24:00 Test Item Value Reference Range Interpretation Comments Glucose Lvl (test code = Glucose Lvl) 66 70-99 [facility]2020-12-07 10:24:00 Test Item Value Reference Range Interpretation Comments BUN (test code = BUN) 19 7-22 [facility]2020-12-07 10:24:00 Test Item Value Reference Range Interpretation Comments Creatinine Lvl (test code = Creatinine 1.82 0.50-1.40 Lvl) [facility]2020-12-07 10:24:00 Test Item Value Reference Range Interpretation Comments Sodium Lvl (test code = Sodium Lvl) 139 135-145 [facility]2020-12-07 10:24:00 Test Item Value Reference Range Interpretation Comments Potassium Lvl (test code = Potassium 4.2 3.5-5.1 Lvl) [facility]2020-12-07 10:24:00 Test Item Value Reference Range Interpretation Comments Chloride Lvl (test code = Chloride Lvl) 105 95-109 [facility]2020-12-07 10:24:00 Test Item Value Reference Range Interpretation Comments CO2 (test code = CO2) 28 24-32 [facility]2020-12-07 10:24:00 Test Item Value Reference Range Interpretation Comments Calcium Lvl (test code = Calcium Lvl) 8.2 8.5-10.5 [facility]2020-12-07 10:24:00 Test Item Value Reference Range Interpretation Comments AGAP (test code = AGAP) 10.2 10.0-20.0 [facility]2020-12-07 10:24:00 Test Item Value Reference Range Interpretation Comments eGFR (test code = eGFR) 26 [facility] HospitalEvxfswgSJFVYOSLHP2601-78-53 10:24:00 Test Item Value Reference Range Interpretation Comments Segs (test code = Segs) 70.6 45.0-75.0 [place] 744040-12-07 10:24:00 Test Item Value Reference Range Interpretation Comments Lymphocytes (test code = Lymphocytes) 13.2 20.0-40.0 [place] 744040-12-07 10:24:00 Test Item Value Reference Range Interpretation Comments Monocytes (test code = Monocytes) 10.9 2.0-12.0 [place] 744040-12-07 10:24:00 Test Item Value Reference Range Interpretation Comments Eosinophils (test code = 4.6 See_Comment [A utomated message] The Eosinophils) system which ge nerated this result tra nsmitted reference range : <=4.0. The reference r christiano was not used to int erpret this result as normal/abnormal . [facility] HospitalDqehidyOCCZZVTCJO3084-58-33 10:24:00 Test Item Value Reference Range Interpretation Comments Basophils (test code = 0.7 See_Comment [Aut omated message] The Basophils) system which ge nerated this result tra nsmitted reference range : <=1.0. The reference r christiano was not used to int erpret this result as normal/abnormal . [facility] HospitalZkucojmNPFNPKNLSX2715-75-11 10:24:00 Test Item Value Reference Range Interpretation Comments Neutrophils # (test code = Neutrophils 5.3 1.5-8.1 #) [facility] HospitalBhakqfjVYCGTIGGOC6602-40-88 10:24:00 Test Item Value Reference Range Interpretation Comments Lymphocytes # (test code = Lymphocytes 1.0 1.0-5.5 #) [facility] HospitalFltivlaVEHZJDINKM4631-35-18 10:24:00 Test Item Value Reference Range Interpretation Comments Monocytes # (test code 0.8 See_Comment [Aut omated message] The = Monocytes #) system which generated this result tra nsmitted reference range : <=0.8. The reference r crhistiano was not used to int erpret this result as normal/abnormal . [facility] HospitalPkjmkgoPIVYSJOITJ1565-37-29 10:24:00 Test Item Value Reference Range Interpretation Comments Eosinophils # (test code 0.3 See_Comment [A utomated message] The = Eosinophils #) system whic h generated this result tra nsmitted reference range : <=0.5. The reference r christiano was not used to int erpret this result as normal/abnormal . [facility] HospitalDjuzpybCXNNLSPYKD9270-90-31 10:24:00 Test Item Value Reference Range Interpretation Comments Basophils # (test code 0.1 See_Comment [Aut omated message] The = Basophils #) system which generated this result tra nsmitted reference range : <=0.2. The reference r christiano was not used to int erpret this result as normal/abnormal . [facility] HospitalNjmacraLVFTHJUWXV5148-75-51 10:24:00 Test Item Value Reference Range Interpretation Comments WBC (test code = WBC) 7.5 3.7-10.4 [facility] HospitalSdcwevnUHPTGCMPGP5256-51-59 10:24:00 Test Item Value Reference Range Interpretation Comments RBC (test code = RBC) 3.85 4.20-5.40 [place] [address]-12-07 10:24:00 Test Item Value Reference Range Interpretation Comments Hgb (test code = Hgb) 10.6 12.0-16.0 [place] [address]-12-07 10:24:00 Test Item Value Reference Range Interpretation Comments Hct (test code = Hct) 32.1 36.0-48.0 [place] [address]-12-07 10:24:00 Test Item Value Reference Range Interpretation Comments MCV (test code = MCV) 83.5 80.0-98.0 [place] [address]-12-07 10:24:00 Test Item Value Reference Range Interpretation Comments MCH (test code = MCH) 27.7 pg 27.0-31.0 [facility] HospitalKwiqbqzHDOQQFDJFY5038-69-22 10:24:00 Test Item Value Reference Range Interpretation Comments MCHC (test code = MCHC) 33.1 32.0-36.0 [facility] HospitalPuiwsavDALIXXSUIJ0441-01-93 10:24:00 Test Item Value Reference Range Interpretation Comments RDW (test code = RDW) 16.8 11.5-14.5 [facility] HospitalLbrxqcpAUPPOZCDDY8605-43-66 10:24:00 Test Item Value Reference Range Interpretation Comments Platelet (test code = Platelet) 185 133-450 [facility] HospitalCzhkidkVNSRPFEMZR7561-54-15 10:24:00 Test Item Value Reference Range Interpretation Comments MPV (test code = MPV) 8.4 7.4-10.4 [facility]2020-12-06 09:53:13 Test Item Value Reference Range Interpretation Comments Magnesium Lvl (test code = Magnesium 2.2 1.8-2.4 Lvl) [facility]2020-12-06 09:53:13 Test Item Value Reference Range Interpretation Comments Phosphorus (test code = Phosphorus) 2.9 2.5-4.5 [facility]2020-12-06 09:53:13 Test Item Value Reference Range Interpretation Comments Glucose Lvl (test code = Glucose Lvl) 102 70-99 [place] 570320-12-06 09:53:13 Test Item Value Reference Range Interpretation Comments BUN (test code = BUN) 17 7-22 [place] [address]-12-06 09:53:13 Test Item Value Reference Range Interpretation Comments Creatinine Lvl (test code = Creatinine 1.51 0.50-1.40 Lvl) [place] [address]-12-06 09:53:13 Test Item Value Reference Range Interpretation Comments Sodium Lvl (test code = Sodium Lvl) 140 135-[address]12-06 09:53:13 Test Item Value Reference Range Interpretation Comments Potassium Lvl (test code = Potassium 3.5 3.5-5.1 Lvl) [address]12-06 09:53:13 Test Item Value Reference Range Interpretation Comments Chloride Lvl (test code = Chloride Lvl) 106 95-109 [place] [address]-12-06 09:53:13 Test Item Value Reference Range Interpretation Comments CO2 (test code = CO2) 29 24-32 [place] [address]-12-06 09:53:13 Test Item Value Reference Range Interpretation Comments Calcium Lvl (test code = Calcium Lvl) 8.3 8.5-10.5 [place] 570320-12-06 09:53:13 Test Item Value Reference Range Interpretation Comments AGAP (test code = AGAP) 8.5 10.0-20.0 [place] 570320-12-06 09:53:13 Test Item Value Reference Range Interpretation Comments eGFR (test code = eGFR) 33 [place] [address]-12-06 09:53:13 Test Item Value Reference Range Interpretation Comments WBC (test code = WBC) 8.7 3.7-10.[address]12-06 09:53:13 Test Item Value Reference Range Interpretation Comments RBC (test code = RBC) 3.96 4.20-5.40 [place] [address]-12-06 09:53:13 Test Item Value Reference Range Interpretation Comments Hgb (test code = Hgb) 10.7 12.0-16.0 [place] [address]-12-06 09:53:13 Test Item Value Reference Range Interpretation Comments Hct (test code = Hct) 32.8 36.0-48.[address]12-06 09:53:13 Test Item Value Reference Range Interpretation Comments MCV (test code = MCV) 83.0 80.0-98.[address]12-06 09:53:13 Test Item Value Reference Range Interpretation Comments MCH (test code = MCH) 26.9 pg 27.0-31.0 [place] [address]-12-06 09:53:13 Test Item Value Reference Range Interpretation Comments MCHC (test code = MCHC) 32.4 32.0-36.[address]12-06 09:53:13 Test Item Value Reference Range Interpretation Comments RDW (test code = RDW) 16.5 11.5-14.[address]12-06 09:53:13 Test Item Value Reference Range Interpretation Comments Platelet (test code = Platelet) 157 133-450 [place] [address]-12-06 09:53:13 Test Item Value Reference Range Interpretation Comments MPV (test code = MPV) 7.5 7.4-10.4 [place] [address]-12-06 09:53:13 Test Item Value Reference Range Interpretation Comments Neutrophils # (test code = Neutrophils 7.2 1.5-8.1 #) [place] [address]-12-06 09:53:13 Test Item Value Reference Range Interpretation Comments Lymphocytes # (test code = Lymphocytes 0.9 1.0-5.5 #) [place] [address]-12-06 09:53:13 Test Item Value Reference Range Interpretation Comments Monocytes # (test code 0.5 See_Comment [Aut omated message] The = Monocytes #) system which generated this result tra nsmitted reference range : <=0.8. The reference r christiano was not used to int erpret this result as normal/abnormal . [address]12-06 09:53:13 Test Item Value Reference Range Interpretation Comments Basophils # (test code 0.1 See_Comment [Aut omated message] The = Basophils #) system which generated this result tra nsmitted reference range : <=0.2. The reference r christiano was not used to int erpret this result as normal/abnormal . [facility]:53:13 Test Item Value Reference Range Interpretation Comments Segs (test code = Segs) 83.0 45.0-75.0 [facility]MpsueeuIUDEWNDZWE4315-00-60 09:53:13 Test Item Value Reference Range Interpretation Comments Bands (test code = 0.0 See_Comment [Automat ed message] The Bands) system which ge nerated this result transmit shbea reference range : <=11.0. The reference r christiano was not used to interpr et this result as edy l/abnormal. [facility] HospitalJetkzedFADQMVPTPP7734-20-20 09:53:13 Test Item Value Reference Range Interpretation Comments Lymphocytes (test code = Lymphocytes) 10.0 20.0-40.0 [place] 744040-12-06 09:53:13 Test Item Value Reference Range Interpretation Comments Monocytes (test code = Monocytes) 6.0 2.0-12.0 [facility] HospitalIrvvpuyZHWOTIXUAW8134-98-03 09:53:13 Test Item Value Reference Range Interpretation Comments Basophils (test code = 1.0 See_Comment [Aut omated message] The Basophils) system which ge nerated this result tra nsmitted reference range : <=1.0. The reference r christiano was not used to int erpret this result as normal/abnormal . [facility] HospitalPrgsmftIVOTOBIGPK4984-23-08 09:53:13 Test Item Value Reference Range Interpretation Comments Atypical Lymphs (test code = Atypical 0.0 Lymphs) [place] 744040-12-06 09:53:13 Test Item Value Reference Range Interpretation Comments RBC Morph (test code = Normal (09/05/20 3:53 RBC Morph) AM) [place] [address]-12-06 09:53:13 Test Item Value Reference Range Interpretation Comments Plt Morph (test code = Normal (09/05/20 3:53 Plt Morph) AM) [facility]2020-12-06 09:53:13 Test Item Value Reference Range Interpretation Comments Magnesium Lvl (test code = Magnesium 2.2 1.8-2.4 Lvl) [facility]2020-12-06 09:53:13 Test Item Value Reference Range Interpretation Comments Phosphorus (test code = Phosphorus) 2.9 2.5-4.5 [place] [address]-12-06 09:53:13 Test Item Value Reference Range Interpretation Comments Glucose Lvl (test code = Glucose Lvl) 102 70-99 [place] [address]-12-06 09:53:13 Test Item Value Reference Range Interpretation Comments BUN (test code = BUN) 17 7-22 [place] [address]-12-06 09:53:13 Test Item Value Reference Range Interpretation Comments Creatinine Lvl (test code = Creatinine 1.51 0.50-1.40 Lvl) [place] 570320-12-06 09:53:13 Test Item Value Reference Range Interpretation Comments Sodium Lvl (test code = Sodium Lvl) 140 135-145 [place] [address]-12-06 09:53:13 Test Item Value Reference Range Interpretation Comments Potassium Lvl (test code = Potassium 3.5 3.5-5.1 Lvl) [address]12-06 09:53:13 Test Item Value Reference Range Interpretation Comments Chloride Lvl (test code = Chloride Lvl) 106 95-109 [place] [address]-12-06 09:53:13 Test Item Value Reference Range Interpretation Comments CO2 (test code = CO2) 29 24-32 [place] 570320-12-06 09:53:13 Test Item Value Reference Range Interpretation Comments Calcium Lvl (test code = Calcium Lvl) 8.3 8.5-10.5 [place] 570320-12-06 09:53:13 Test Item Value Reference Range Interpretation Comments AGAP (test code = AGAP) 8.5 10.0-20.0 [place] [address]-12-06 09:53:13 Test Item Value Reference Range Interpretation Comments eGFR (test code = eGFR) 33 [place] [address]-12-06 09:53:13 Test Item Value Reference Range Interpretation Comments Magnesium Lvl (test code = Magnesium 2.2 1.8-2.4 Lvl) [place] 570320-12-06 09:53:13 Test Item Value Reference Range Interpretation Comments Phosphorus (test code = Phosphorus) 2.9 2.5-4.5 [place] [address]-12-06 09:53:13 Test Item Value Reference Range Interpretation Comments Glucose Lvl (test code = Glucose Lvl) 102 70-99 [place] [address]-12-06 09:53:13 Test Item Value Reference Range Interpretation Comments BUN (test code = BUN) 17 7-22 [place] [address]-12-06 09:53:13 Test Item Value Reference Range Interpretation Comments Creatinine Lvl (test code = Creatinine 1.51 0.50-1.40 Lvl) [place] [address]-12-06 09:53:13 Test Item Value Reference Range Interpretation Comments Sodium Lvl (test code = Sodium Lvl) 140 135-145 [address]12-06 09:53:13 Test Item Value Reference Range Interpretation Comments Potassium Lvl (test code = Potassium 3.5 3.5-5.1 Lvl) [address]12-06 09:53:13 Test Item Value Reference Range Interpretation Comments Chloride Lvl (test code = Chloride Lvl) 106 95-109 [address]12-06 09:53:13 Test Item Value Reference Range Interpretation Comments WBC (test code = WBC) 8.7 3.7-10.4 [place] [address]-12-06 09:53:13 Test Item Value Reference Range Interpretation Comments CO2 (test code = CO2) 29 24-32 [place] [address]-12-06 09:53:13 Test Item Value Reference Range Interpretation Comments Calcium Lvl (test code = Calcium Lvl) 8.3 8.5-10.5 [place] [address]-12-06 09:53:13 Test Item Value Reference Range Interpretation Comments AGAP (test code = AGAP) 8.5 10.0-20.0 [place] [address]-12-06 09:53:13 Test Item Value Reference Range Interpretation Comments eGFR (test code = eGFR) 33 [place] [address]-12-06 09:53:13 Test Item Value Reference Range Interpretation Comments WBC (test code = WBC) 8.7 3.7-10.4 [place] [address]-12-06 09:53:13 Test Item Value Reference Range Interpretation Comments RBC (test code = RBC) 3.96 4.20-5.40 [place] [address]-12-06 09:53:13 Test Item Value Reference Range Interpretation Comments Hgb (test code = Hgb) 10.7 12.0-16.0 [place] [address]-12-06 09:53:13 Test Item Value Reference Range Interpretation Comments Hct (test code = Hct) 32.8 36.0-48.0 [place] [address]-12-06 09:53:13 Test Item Value Reference Range Interpretation Comments MCV (test code = MCV) 83.0 80.0-98.0 [place] [address]-12-06 09:53:13 Test Item Value Reference Range Interpretation Comments MCH (test code = MCH) 26.9 pg 27.0-31.0 [place] [address]-12-06 09:53:13 Test Item Value Reference Range Interpretation Comments RBC (test code = RBC) 3.96 4.20-5.40 [place] [address]-12-06 09:53:13 Test Item Value Reference Range Interpretation Comments MCHC (test code = MCHC) 32.4 32.0-36.0 [place] [address]-12-06 09:53:13 Test Item Value Reference Range Interpretation Comments RDW (test code = RDW) 16.5 11.5-14.5 [place] [address]-12-06 09:53:13 Test Item Value Reference Range Interpretation Comments Platelet (test code = Platelet) 157 133-450 [place] 744040-12-06 09:53:13 Test Item Value Reference Range Interpretation Comments MPV (test code = MPV) 7.5 7.4-10.4 [place] [address]-12-06 09:53:13 Test Item Value Reference Range Interpretation Comments Neutrophils # (test code = Neutrophils 7.2 1.5-8.1 #) [place] [address]-12-06 09:53:13 Test Item Value Reference Range Interpretation Comments Lymphocytes # (test code = Lymphocytes 0.9 1.0-5.5 #) [place] [address]-12-06 09:53:13 Test Item Value Reference Range Interpretation Comments Monocytes # (test code 0.5 See_Comment [Aut omated message] The = Monocytes #) system which generated this result tra nsmitted reference range : <=0.8. The reference r christiano was not used to int erpret this result as normal/abnormal . [facility] HospitalAxzuvsqNBDQGVMOPW7271-13-34 09:53:13 Test Item Value Reference Range Interpretation Comments Basophils # (test code 0.1 See_Comment [Aut omated message] The = Basophils #) system which generated this result tra nsmitted reference range : <=0.2. The reference r christiano was not used to int erpret this result as normal/abnormal . [facility] HospitalYwlthbsLOPIZAIPFQ5275-03-51 09:53:13 Test Item Value Reference Range Interpretation Comments Segs (test code = Segs) 83.0 45.0-75.0 [facility] HospitalAktxfiyWVDXCNKLAY7379-52-08 09:53:13 Test Item Value Reference Range Interpretation Comments Bands (test code = 0.0 See_Comment [Automat ed message] The Bands) system which ge nerated this result transmit sheba reference range : <=11.0. The reference r christiano was not used to interpr et this result as edy l/abnormal. [facility] HospitalKtduckjNMFNAESWJV9896-79-42 09:53:13 Test Item Value Reference Range Interpretation Comments Hgb (test code = Hgb) 10.7 12.0-16.0 [facility] HospitalHaexyhwMUVSNRVNVC3846-04-51 09:53:13 Test Item Value Reference Range Interpretation Comments Lymphocytes (test code = Lymphocytes) 10.0 20.0-40.0 [facility] HospitalCiiolgeDKVUTIWCJY8127-29-15 09:53:13 Test Item Value Reference Range Interpretation Comments Monocytes (test code = Monocytes) 6.0 2.0-12.0 [facility] HospitalRkwyppaTHXDLYWJXJ1720-12-32 09:53:13 Test Item Value Reference Range Interpretation Comments Basophils (test code = 1.0 See_Comment [Aut omated message] The Basophils) system which ge nerated this result tra nsmitted reference range : <=1.0. The reference r christiano was not used to int erpret this result as normal/abnormal . [facility] HospitalOstlqftRBFOLMZHQS7473-65-39 09:53:13 Test Item Value Reference Range Interpretation Comments Atypical Lymphs (test code = Atypical 0.0 Lymphs) [facility] HospitalYpdorkgJJGHHHRNKM6991-75-62 09:53:13 Test Item Value Reference Range Interpretation Comments RBC Morph (test code = Normal (09/05/20 3:53 RBC Morph) AM) [place] [address]-12-06 09:53:13 Test Item Value Reference Range Interpretation Comments Plt Morph (test code = Normal (09/05/20 3:53 Plt Morph) AM) [place] [address]-12-06 09:53:13 Test Item Value Reference Range Interpretation Comments Hct (test code = Hct) 32.8 36.0-48.0 [address]12-06 09:53:13 Test Item Value Reference Range Interpretation Comments MCV (test code = MCV) 83.0 80.0-98.0 [address]12-06 09:53:13 Test Item Value Reference Range Interpretation Comments MCH (test code = MCH) 26.9 pg 27.0-31.[address]12-06 09:53:13 Test Item Value Reference Range Interpretation Comments MCHC (test code = MCHC) 32.4 32.0-36.0 [address]12-06 09:53:13 Test Item Value Reference Range Interpretation Comments RDW (test code = RDW) 16.5 11.5-14.[address]12-06 09:53:13 Test Item Value Reference Range Interpretation Comments Platelet (test code = Platelet) 157 133-450 [place] [address]-12-06 09:53:13 Test Item Value Reference Range Interpretation Comments MPV (test code = MPV) 7.5 7.4-10.[address]12-06 09:53:13 Test Item Value Reference Range Interpretation Comments Neutrophils # (test code = Neutrophils 7.2 1.5-8.1 #) [place] [address]-12-06 09:53:13 Test Item Value Reference Range Interpretation Comments Lymphocytes # (test code = Lymphocytes 0.9 1.0-5.5 #) [place] [address]-12-06 09:53:13 Test Item Value Reference Range Interpretation Comments Monocytes # (test code 0.5 See_Comment [Aut omated message] The = Monocytes #) system which generated this result tra nsmitted reference range : <=0.8. The reference r christiano was not used to int erpret this result as normal/abnormal . [place] [address]-12-06 09:53:13 Test Item Value Reference Range Interpretation Comments Basophils # (test code 0.1 See_Comment [Aut omated message] The = Basophils #) system which generated this result tra nsmitted reference range : <=0.2. The reference r christiano was not used to int erpret this result as normal/abnormal . [facility] HospitalEgwsaxsDLFROJHPJO8857-35-33 09:53:13 Test Item Value Reference Range Interpretation Comments Segs (test code = Segs) 83.0 45.0-75.0 [facility] HospitalQzkmpzfYTKIDKMUKH3151-83-23 09:53:13 Test Item Value Reference Range Interpretation Comments Bands (test code = 0.0 See_Comment [Automat ed message] The Bands) system which ge nerated this result transmit sheba reference range : <=11.0. The reference r christiano was not used to interpr et this result as edy l/abnormal. [facility] HospitalWmznegfQXDPAHBPCK6059-18-79 09:53:13 Test Item Value Reference Range Interpretation Comments Lymphocytes (test code = Lymphocytes) 10.0 20.0-40.0 [facility] HospitalSquycnvHUUNTJKQHN2616-41-54 09:53:13 Test Item Value Reference Range Interpretation Comments Monocytes (test code = Monocytes) 6.0 2.0-12.0 [facility] HospitalLzquadiEGFJMOGJQO8201-07-19 09:53:13 Test Item Value Reference Range Interpretation Comments Basophils (test code = 1.0 See_Comment [Aut omated message] The Basophils) system which ge nerated this result tra nsmitted reference range : <=1.0. The reference r christiano was not used to int erpret this result as normal/abnormal . [facility] HospitalWwtsokiYQUIQCKMMI3190-95-30 09:53:13 Test Item Value Reference Range Interpretation Comments Atypical Lymphs (test code = Atypical 0.0 Lymphs) [facility] HospitalMpgqyurQXSSNZHIUY0947-30-32 09:53:13 Test Item Value Reference Range Interpretation Comments RBC Morph (test code = Normal (09/05/20 3:53 RBC Morph) AM) [facility] HospitalCjxsglwXGLAWYODFO6744-42-57 09:53:13 Test Item Value Reference Range Interpretation Comments Plt Morph (test code = Normal (09/05/20 3:53 Plt Morph) AM) [facility]2020-12-06 09:53:13 Test Item Value Reference Range Interpretation Comments Magnesium Lvl (test code = Magnesium 2.2 1.8-2.4 Lvl) [place] [address]-12-06 09:53:13 Test Item Value Reference Range Interpretation Comments Phosphorus (test code = Phosphorus) 2.9 2.5-4.5 [place] [address]-12-06 09:53:13 Test Item Value Reference Range Interpretation Comments Glucose Lvl (test code = Glucose Lvl) 102 70-99 [place] [address]-12-06 09:53:13 Test Item Value Reference Range Interpretation Comments BUN (test code = BUN) 17 7-22 [place] [address]-12-06 09:53:13 Test Item Value Reference Range Interpretation Comments Creatinine Lvl (test code = Creatinine 1.51 0.50-1.40 Lvl) [place] [address]-12-06 09:53:13 Test Item Value Reference Range Interpretation Comments Sodium Lvl (test code = Sodium Lvl) 140 135-145 [place] [address]-12-06 09:53:13 Test Item Value Reference Range Interpretation Comments Potassium Lvl (test code = Potassium 3.5 3.5-5.1 Lvl) [place] 570320-12-06 09:53:13 Test Item Value Reference Range Interpretation Comments Chloride Lvl (test code = Chloride Lvl) 106 95-109 [place] 570320-12-06 09:53:13 Test Item Value Reference Range Interpretation Comments CO2 (test code = CO2) 29 24-32 [place] [address]-12-06 09:53:13 Test Item Value Reference Range Interpretation Comments Calcium Lvl (test code = Calcium Lvl) 8.3 8.5-10.5 [place] [address]-12-06 09:53:13 Test Item Value Reference Range Interpretation Comments AGAP (test code = AGAP) 8.5 10.0-20.0 [place] [address]-12-06 09:53:13 Test Item Value Reference Range Interpretation Comments eGFR (test code = eGFR) 33 [place] [address]-12-06 09:53:13 Test Item Value Reference Range Interpretation Comments WBC (test code = WBC) 8.7 3.7-10.4 [place] [address]-12-06 09:53:13 Test Item Value Reference Range Interpretation Comments RBC (test code = RBC) 3.96 4.20-5.40 [place] [address]-12-06 09:53:13 Test Item Value Reference Range Interpretation Comments Hgb (test code = Hgb) 10.7 12.0-16.0 [place] [address]-12-06 09:53:13 Test Item Value Reference Range Interpretation Comments Hct (test code = Hct) 32.8 36.0-48.0 [place] [address]-12-06 09:53:13 Test Item Value Reference Range Interpretation Comments MCV (test code = MCV) 83.0 80.0-98.0 [place] [address]-12-06 09:53:13 Test Item Value Reference Range Interpretation Comments MCH (test code = MCH) 26.9 pg 27.0-31.0 [place] [address]-12-06 09:53:13 Test Item Value Reference Range Interpretation Comments MCHC (test code = MCHC) 32.4 32.0-36.0 [place] [address]-12-06 09:53:13 Test Item Value Reference Range Interpretation Comments RDW (test code = RDW) 16.5 11.5-14.5 [place] [address]-12-06 09:53:13 Test Item Value Reference Range Interpretation Comments Platelet (test code = Platelet) 157 133-450 [place] [address]-12-06 09:53:13 Test Item Value Reference Range Interpretation Comments MPV (test code = MPV) 7.5 7.4-10.4 [place] [address]-12-06 09:53:13 Test Item Value Reference Range Interpretation Comments Neutrophils # (test code = Neutrophils 7.2 1.5-8.1 #) [place] [address]-12-06 09:53:13 Test Item Value Reference Range Interpretation Comments Lymphocytes # (test code = Lymphocytes 0.9 1.0-5.5 #) [place] [address]-12-06 09:53:13 Test Item Value Reference Range Interpretation Comments Monocytes # (test code 0.5 See_Comment [Aut omated message] The = Monocytes #) system which generated this result tra nsmitted reference range : <=0.8. The reference r christiano was not used to int erpret this result as normal/abnormal . [facility] HospitalOisqkpzZFLFWOGENT5137-08-37 09:53:13 Test Item Value Reference Range Interpretation Comments Basophils # (test code 0.1 See_Comment [Aut omated message] The = Basophils #) system which generated this result tra nsmitted reference range : <=0.2. The reference r christiano was not used to int erpret this result as normal/abnormal . [facility] HospitalOxelaxeIXZMDQZMJS1996-32-84 09:53:13 Test Item Value Reference Range Interpretation Comments Segs (test code = Segs) 83.0 45.0-75.0 [facility] HospitalTifjryrOHMTVNQGOA4427-16-62 09:53:13 Test Item Value Reference Range Interpretation Comments Bands (test code = 0.0 See_Comment [Automat ed message] The Bands) system which ge nerated this result transmit sheba reference range : <=11.0. The reference r christiano was not used to interpr et this result as edy l/abnormal. [facility] HospitalFsbfmpcNZLXHXIJDE8104-48-45 09:53:13 Test Item Value Reference Range Interpretation Comments Lymphocytes (test code = Lymphocytes) 10.0 20.0-40.0 [facility] HospitalEwwovshVRKPMENEEP7098-06-18 09:53:13 Test Item Value Reference Range Interpretation Comments Monocytes (test code = Monocytes) 6.0 2.0-12.0 [facility] HospitalZxqskayCGUDLYPGLF8024-09-33 09:53:13 Test Item Value Reference Range Interpretation Comments Basophils (test code = 1.0 See_Comment [Aut omated message] The Basophils) system which ge nerated this result tra nsmitted reference range : <=1.0. The reference r christiano was not used to int erpret this result as normal/abnormal . [facility] HospitalWlndwsqQWWDGQFTGW1749-76-22 09:53:13 Test Item Value Reference Range Interpretation Comments Atypical Lymphs (test code = Atypical 0.0 Lymphs) [place]4040-12-06 09:53:13 Test Item Value Reference Range Interpretation Comments RBC Morph (test code = Normal (09/05/20 3:53 RBC Morph) AM) [facility] HospitalVavnleuEYLRQXMPDL3897-94-26 09:53:13 Test Item Value Reference Range Interpretation Comments Plt Morph (test code = Normal (09/05/20 3:53 Plt Morph) AM) [facility]2020-12-06 09:53:13 Test Item Value Reference Range Interpretation Comments Magnesium Lvl (test code = Magnesium 2.2 1.8-2.4 Lvl) [place] [address]320-12-06 09:53:13 Test Item Value Reference Range Interpretation Comments Phosphorus (test code = Phosphorus) 2.9 2.5-4.5 [place] [address]-12-06 09:53:13 Test Item Value Reference Range Interpretation Comments Glucose Lvl (test code = Glucose Lvl) 102 70-99 [place] [address]-12-06 09:53:13 Test Item Value Reference Range Interpretation Comments BUN (test code = BUN) 17 7-22 [place] [address]-12-06 09:53:13 Test Item Value Reference Range Interpretation Comments Creatinine Lvl (test code = Creatinine 1.51 0.50-1.40 Lvl) [place] [address]-12-06 09:53:13 Test Item Value Reference Range Interpretation Comments Sodium Lvl (test code = Sodium Lvl) 140 135-145 [place] [address]-12-06 09:53:13 Test Item Value Reference Range Interpretation Comments Potassium Lvl (test code = Potassium 3.5 3.5-5.1 Lvl) [place] [address]320-12-06 09:53:13 Test Item Value Reference Range Interpretation Comments Chloride Lvl (test code = Chloride Lvl) 106 95-109 [place] 570320-12-06 09:53:13 Test Item Value Reference Range Interpretation Comments CO2 (test code = CO2) 29 24-32 [place] 570320-12-06 09:53:13 Test Item Value Reference Range Interpretation Comments Calcium Lvl (test code = Calcium Lvl) 8.3 8.5-10.5 [place] [address]320-12-06 09:53:13 Test Item Value Reference Range Interpretation Comments AGAP (test code = AGAP) 8.5 10.0-20.0 [place] [address]-12-06 09:53:13 Test Item Value Reference Range Interpretation Comments eGFR (test code = eGFR) 33 [facility]FC[facility]VV[facility] 09:53:13 Test Item Value Reference Range Interpretation Comments WBC (test code = WBC) 8.7 3.7-10.4 [place] [address]-12-06 09:53:13 Test Item Value Reference Range Interpretation Comments RBC (test code = RBC) 3.96 4.20-5.40 [place] [address]-12-06 09:53:13 Test Item Value Reference Range Interpretation Comments Hgb (test code = Hgb) 10.7 12.0-16.0 [place] [address]-12-06 09:53:13 Test Item Value Reference Range Interpretation Comments Hct (test code = Hct) 32.8 36.0-48.0 [place] [address]-12-06 09:53:13 Test Item Value Reference Range Interpretation Comments MCV (test code = MCV) 83.0 80.0-98.0 [place] [address]-12-06 09:53:13 Test Item Value Reference Range Interpretation Comments MCH (test code = MCH) 26.9 pg 27.0-31.0 [place] [address]-12-06 09:53:13 Test Item Value Reference Range Interpretation Comments MCHC (test code = MCHC) 32.4 32.0-36.0 [place] [address]-12-06 09:53:13 Test Item Value Reference Range Interpretation Comments RDW (test code = RDW) 16.5 11.5-14.5 [place] [address]-12-06 09:53:13 Test Item Value Reference Range Interpretation Comments Platelet (test code = Platelet) 157 133-450 [place] [address]-12-06 09:53:13 Test Item Value Reference Range Interpretation Comments MPV (test code = MPV) 7.5 7.4-10.4 [place] [address]-12-06 09:53:13 Test Item Value Reference Range Interpretation Comments Neutrophils # (test code = Neutrophils 7.2 1.5-8.1 #) [place] [address]-12-06 09:53:13 Test Item Value Reference Range Interpretation Comments Lymphocytes # (test code = Lymphocytes 0.9 1.0-5.5 #) [place] [address]-12-06 09:53:13 Test Item Value Reference Range Interpretation Comments Monocytes # (test code 0.5 See_Comment [Aut omated message] The = Monocytes #) system which generated this result tra nsmitted reference range : <=0.8. The reference r christiano was not used to int erpret this result as normal/abnormal . [facility] HospitalUgybvkcMVSNCDZRRN9352-73-99 09:53:13 Test Item Value Reference Range Interpretation Comments Basophils # (test code 0.1 See_Comment [Aut omated message] The = Basophils #) system which generated this result tra nsmitted reference range : <=0.2. The reference r christiano was not used to int erpret this result as normal/abnormal . [facility] HospitalFheqdfrCEYOLLAMDE7290-20-56 09:53:13 Test Item Value Reference Range Interpretation Comments Segs (test code = Segs) 83.0 45.0-75.0 [facility] HospitalPusoculEXYQPQPWOQ4792-24-92 09:53:13 Test Item Value Reference Range Interpretation Comments Bands (test code = 0.0 See_Comment [Automat ed message] The Bands) system which ge nerated this result transmit sheba reference range : <=11.0. The reference r christiano was not used to interpr et this result as edy l/abnormal. [facility] HospitalOomzqisKZOTNTJYTQ8376-94-84 09:53:13 Test Item Value Reference Range Interpretation Comments Lymphocytes (test code = Lymphocytes) 10.0 20.0-40.0 [facility] [facility]NPORK[facility]ZU6077-67-08 09:53:13 Test Item Value Reference Range Interpretation Comments Monocytes (test code = Monocytes) 6.0 2.0-12.0 [facility]JrscrwvYIBXXMYHHS1545-56-37 09:53:13 Test Item Value Reference Range Interpretation Comments Basophils (test code = 1.0 See_Comment [Aut omated message] The Basophils) system which ge nerated this result tra nsmitted reference range : <=1.0. The reference r christiano was not used to int erpret this result as normal/abnormal . [facility] HospitalYozdzcaZPOXDQFBVX8957-48-13 09:53:13 Test Item Value Reference Range Interpretation Comments Atypical Lymphs (test code = Atypical 0.0 Lymphs) [facility] HospitalJavfcfiLAFNXFHCHD4615-54-20 09:53:13 Test Item Value Reference Range Interpretation Comments RBC Morph (test code = Normal (09/05/20 3:53 RBC Morph) AM) [facility] HospitalZnnvcxlRKPDVGLZXI6296-78-33 09:53:13 Test Item Value Reference Range Interpretation Comments Plt Morph (test code = Normal (09/05/20 3:53 Plt Morph) AM) [place] [address]-12-06 09:53:13 Test Item Value Reference Range Interpretation Comments Magnesium Lvl (test code = Magnesium 2.2 1.8-2.4 Lvl) [address]12-06 09:53:13 Test Item Value Reference Range Interpretation Comments Phosphorus (test code = Phosphorus) 2.9 2.5-4.[address]12-06 09:53:13 Test Item Value Reference Range Interpretation Comments Glucose Lvl (test code = Glucose Lvl) 102 70-99 [place] [address]-12-06 09:53:13 Test Item Value Reference Range Interpretation Comments BUN (test code = BUN) 17 7-22 [place] [address]-12-06 09:53:13 Test Item Value Reference Range Interpretation Comments Creatinine Lvl (test code = Creatinine 1.51 0.50-1.40 Lvl) [place] [address]-12-06 09:53:13 Test Item Value Reference Range Interpretation Comments Sodium Lvl (test code = Sodium Lvl) 140 135-145 [place] 570320-12-06 09:53:13 Test Item Value Reference Range Interpretation Comments Potassium Lvl (test code = Potassium 3.5 3.5-5.1 Lvl) [place] [address]320-12-06 09:53:13 Test Item Value Reference Range Interpretation Comments Chloride Lvl (test code = Chloride Lvl) 106 95-109 [place] [address]-12-06 09:53:13 Test Item Value Reference Range Interpretation Comments CO2 (test code = CO2) 29 24-32 [place] [address]-12-06 09:53:13 Test Item Value Reference Range Interpretation Comments Calcium Lvl (test code = Calcium Lvl) 8.3 8.5-10.5 [place] [address]-12-06 09:53:13 Test Item Value Reference Range Interpretation Comments AGAP (test code = AGAP) 8.5 10.0-20.0 [place] [address]-12-06 09:53:13 Test Item Value Reference Range Interpretation Comments eGFR (test code = eGFR) 33 [facility] HospitalOgwadjtCRCUZBCYHO7558-18-46 09:53:13 Test Item Value Reference Range Interpretation Comments WBC (test code = WBC) 8.7 3.7-10.4 [facility] HospitalOzakwlkOKHSYNCZHB9795-29-76 09:53:13 Test Item Value Reference Range Interpretation Comments RBC (test code = RBC) 3.96 4.20-5.40 [place] 744040-12-06 09:53:13 Test Item Value Reference Range Interpretation Comments Hgb (test code = Hgb) 10.7 12.0-16.0 [place] [address]-12-06 09:53:13 Test Item Value Reference Range Interpretation Comments Hct (test code = Hct) 32.8 36.0-48.0 [place] 744040-12-06 09:53:13 Test Item Value Reference Range Interpretation Comments MCV (test code = MCV) 83.0 80.0-98.0 [place] 744040-12-06 09:53:13 Test Item Value Reference Range Interpretation Comments MCH (test code = MCH) 26.9 pg 27.0-31.0 [facility] HospitalDkqmprtDXUMHWFVEW1372-01-87 09:53:13 Test Item Value Reference Range Interpretation Comments MCHC (test code = MCHC) 32.4 32.0-36.0 [facility] HospitalIxfsfivNZKWDBQJIC7666-68-81 09:53:13 Test Item Value Reference Range Interpretation Comments RDW (test code = RDW) 16.5 11.5-14.5 [facility] HospitalBgmloqwROAOQPARMA5873-14-88 09:53:13 Test Item Value Reference Range Interpretation Comments Platelet (test code = Platelet) 157 133-450 [place] 744040-12-06 09:53:13 Test Item Value Reference Range Interpretation Comments MPV (test code = MPV) 7.5 7.4-10.4 [place] 744040-12-06 09:53:13 Test Item Value Reference Range Interpretation Comments Neutrophils # (test code = Neutrophils 7.2 1.5-8.1 #) [facility] HospitalMlyssrrYVBYBYVCEK3509-72-77 09:53:13 Test Item Value Reference Range Interpretation Comments Lymphocytes # (test code = Lymphocytes 0.9 1.0-5.5 #) [address]12-06 09:53:13 Test Item Value Reference Range Interpretation Comments Monocytes # (test code 0.5 See_Comment [Aut omated message] The = Monocytes #) system which generated this result tra nsmitted reference range : <=0.8. The reference r christiano was not used to int erpret this result as normal/abnormal . [facility] HospitalHflvrldEFCRWJACTT9024-11-46 09:53:13 Test Item Value Reference Range Interpretation Comments Basophils # (test code 0.1 See_Comment [Aut omated message] The = Basophils #) system which generated this result tra nsmitted reference range : <=0.2. The reference r christiano was not used to int erpret this result as normal/abnormal . [facility] HospitalZpmnhutAWPGHVXBJF6769-38-13 09:53:13 Test Item Value Reference Range Interpretation Comments Segs (test code = Segs) 83.0 45.0-75.0 [place] [address]-12-06 09:53:13 Test Item Value Reference Range Interpretation Comments Bands (test code = 0.0 See_Comment [Automat ed message] The Bands) system which ge nerated this result transmit sheba reference range : <=11.0. The reference r christiano was not used to interpr et this result as edy l/abnormal. [facility] HospitalSxglpjkCNVARFBVKV5422-80-65 09:53:13 Test Item Value Reference Range Interpretation Comments Lymphocytes (test code = Lymphocytes) 10.0 20.0-40.0 [place] [address]-12-06 09:53:13 Test Item Value Reference Range Interpretation Comments Monocytes (test code = Monocytes) 6.0 2.0-12.0 [place] [address]-12-06 09:53:13 Test Item Value Reference Range Interpretation Comments Basophils (test code = 1.0 See_Comment [Aut omated message] The Basophils) system which ge nerated this result tra nsmitted reference range : <=1.0. The reference r christiano was not used to int erpret this result as normal/abnormal . [place] [address]-12-06 09:53:13 Test Item Value Reference Range Interpretation Comments Atypical Lymphs (test code = Atypical 0.0 Lymphs) [place] 744040-12-06 09:53:13 Test Item Value Reference Range Interpretation Comments RBC Morph (test code = Normal (09/05/20 3:53 RBC Morph) AM) [facility]FP[facility]LFW[facility]07[facility]-69 09:53:13 Test Item Value Reference Range Interpretation Comments Plt Morph (test code = Normal (09/05/20 3:53 Plt Morph) AM) [place] [address]-12-06 09:53:13 Test Item Value Reference Range Interpretation Comments Magnesium Lvl (test code = Magnesium 2.2 1.8-2.4 Lvl) [place] [address]320-12-06 09:53:13 Test Item Value Reference Range Interpretation Comments Phosphorus (test code = Phosphorus) 2.9 2.5-4.5 [place] [address]-12-06 09:53:13 Test Item Value Reference Range Interpretation Comments Magnesium Lvl (test code = Magnesium 2.2 1.8-2.4 Lvl) [place] [address]-12-06 09:53:13 Test Item Value Reference Range Interpretation Comments Phosphorus (test code = Phosphorus) 2.9 2.5-4.5 [place] [address]320-12-06 09:53:13 Test Item Value Reference Range Interpretation Comments Glucose Lvl (test code = Glucose Lvl) 102 70-99 [place] 570320-12-06 09:53:13 Test Item Value Reference Range Interpretation Comments BUN (test code = BUN) 17 7-22 [place] [address]-12-06 09:53:13 Test Item Value Reference Range Interpretation Comments Creatinine Lvl (test code = Creatinine 1.51 0.50-1.40 Lvl) [place] [address]320-12-06 09:53:13 Test Item Value Reference Range Interpretation Comments Sodium Lvl (test code = Sodium Lvl) 140 135-145 [place] 570320-12-06 09:53:13 Test Item Value Reference Range Interpretation Comments Glucose Lvl (test code = Glucose Lvl) 102 70-99 [place] 570320-12-06 09:53:13 Test Item Value Reference Range Interpretation Comments Potassium Lvl (test code = Potassium 3.5 3.5-5.1 Lvl) [place] [address]320-12-06 09:53:13 Test Item Value Reference Range Interpretation Comments Chloride Lvl (test code = Chloride Lvl) 106 95-109 [place] 570320-12-06 09:53:13 Test Item Value Reference Range Interpretation Comments CO2 (test code = CO2) 29 24-32 [place] [address]-12-06 09:53:13 Test Item Value Reference Range Interpretation Comments Calcium Lvl (test code = Calcium Lvl) 8.3 8.5-10.5 [place] [address]-12-06 09:53:13 Test Item Value Reference Range Interpretation Comments AGAP (test code = AGAP) 8.5 10.0-20.[address]12-06 09:53:13 Test Item Value Reference Range Interpretation Comments eGFR (test code = eGFR) 33 [place] [address]-12-06 09:53:13 Test Item Value Reference Range Interpretation Comments WBC (test code = WBC) 8.7 3.7-10.4 [place] [address]-12-06 09:53:13 Test Item Value Reference Range Interpretation Comments RBC (test code = RBC) 3.96 4.20-5.40 [place] [address]-12-06 09:53:13 Test Item Value Reference Range Interpretation Comments Hgb (test code = Hgb) 10.7 12.0-16.0 [place] [address]-12-06 09:53:13 Test Item Value Reference Range Interpretation Comments Hct (test code = Hct) 32.8 36.0-48.0 [place] [address]-12-06 09:53:13 Test Item Value Reference Range Interpretation Comments BUN (test code = BUN) 17 7-22 [place] [address]-12-06 09:53:13 Test Item Value Reference Range Interpretation Comments MCV (test code = MCV) 83.0 80.0-98.0 [place] [address]-12-06 09:53:13 Test Item Value Reference Range Interpretation Comments MCH (test code = MCH) 26.9 pg 27.0-31.0 [place] [address]-12-06 09:53:13 Test Item Value Reference Range Interpretation Comments MCHC (test code = MCHC) 32.4 32.0-36.0 [place] [address]-12-06 09:53:13 Test Item Value Reference Range Interpretation Comments RDW (test code = RDW) 16.5 11.5-14.5 [place] [address]-12-06 09:53:13 Test Item Value Reference Range Interpretation Comments Platelet (test code = Platelet) 157 133-450 [place] [address]-12-06 09:53:13 Test Item Value Reference Range Interpretation Comments MPV (test code = MPV) 7.5 7.4-10.4 [place] [address]-12-06 09:53:13 Test Item Value Reference Range Interpretation Comments Neutrophils # (test code = Neutrophils 7.2 1.5-8.1 #) [place] [address]-12-06 09:53:13 Test Item Value Reference Range Interpretation Comments Lymphocytes # (test code = Lymphocytes 0.9 1.0-5.5 #) [place] [address]-12-06 09:53:13 Test Item Value Reference Range Interpretation Comments Monocytes # (test code 0.5 See_Comment [Aut omated message] The = Monocytes #) system which generated this result tra nsmitted reference range : <=0.8. The reference r christiano was not used to int erpret this result as normal/abnormal . [place] [address]-12-06 09:53:13 Test Item Value Reference Range Interpretation Comments Basophils # (test code 0.1 See_Comment [Aut omated message] The = Basophils #) system which generated this result tra nsmitted reference range : <=0.2. The reference r christiano was not used to int erpret this result as normal/abnormal . [facility]2020-12-06 09:53:13 Test Item Value Reference Range Interpretation Comments Creatinine Lvl (test code = Creatinine 1.51 0.50-1.40 Lvl) [place] [address]-12-06 09:53:13 Test Item Value Reference Range Interpretation Comments Segs (test code = Segs) 83.0 45.0-75.0 [place] [address]-12-06 09:53:13 Test Item Value Reference Range Interpretation Comments Bands (test code = 0.0 See_Comment [Automat ed message] The Bands) system which ge nerated this result transmit sheba reference range : <=11.0. The reference r christiano was not used to interpr et this result as edy l/abnormal. [place]4040-12-06 09:53:13 Test Item Value Reference Range Interpretation Comments Lymphocytes (test code = Lymphocytes) 10.0 20.0-40.0 [place] [address]-12-06 09:53:13 Test Item Value Reference Range Interpretation Comments Monocytes (test code = Monocytes) 6.0 2.0-12.0 [place] [address]-12-06 09:53:13 Test Item Value Reference Range Interpretation Comments Basophils (test code = 1.0 See_Comment [Aut omated message] The Basophils) system which ge nerated this result tra nsmitted reference range : <=1.0. The reference r christiano was not used to int erpret this result as normal/abnormal . [place]4040-12-06 09:53:13 Test Item Value Reference Range Interpretation Comments Atypical Lymphs (test code = Atypical 0.0 Lymphs) [place] 744040-12-06 09:53:13 Test Item Value Reference Range Interpretation Comments RBC Morph (test code = Normal (09/05/20 3:53 RBC Morph) AM) [place] [address]-12-06 09:53:13 Test Item Value Reference Range Interpretation Comments Plt Morph (test code = Normal (09/05/20 3:53 Plt Morph) AM) [facility]2020-12-06 09:53:13 Test Item Value Reference Range Interpretation Comments Sodium Lvl (test code = Sodium Lvl) 140 135-145 [place] 570320-12-06 09:53:13 Test Item Value Reference Range Interpretation Comments Potassium Lvl (test code = Potassium 3.5 3.5-5.1 Lvl) [place] [address]320-12-06 09:53:13 Test Item Value Reference Range Interpretation Comments Chloride Lvl (test code = Chloride Lvl) 106 95-109 [place] 570320-12-06 09:53:13 Test Item Value Reference Range Interpretation Comments CO2 (test code = CO2) 29 24-32 [place] 570320-12-06 09:53:13 Test Item Value Reference Range Interpretation Comments Calcium Lvl (test code = Calcium Lvl) 8.3 8.5-10.5 [place] [address]-12-06 09:53:13 Test Item Value Reference Range Interpretation Comments AGAP (test code = AGAP) 8.5 10.0-20.0 [place] [address]-12-06 09:53:13 Test Item Value Reference Range Interpretation Comments eGFR (test code = eGFR) 33 [place] [address]-12-06 09:53:13 Test Item Value Reference Range Interpretation Comments WBC (test code = WBC) 8.7 3.7-10.4 [place] [address]-12-06 09:53:13 Test Item Value Reference Range Interpretation Comments RBC (test code = RBC) 3.96 4.20-5.40 [place] [address]-12-06 09:53:13 Test Item Value Reference Range Interpretation Comments Hgb (test code = Hgb) 10.7 12.0-16.0 [place] [address]-12-06 09:53:13 Test Item Value Reference Range Interpretation Comments Hct (test code = Hct) 32.8 36.0-48.0 [place] [address]-12-06 09:53:13 Test Item Value Reference Range Interpretation Comments MCV (test code = MCV) 83.0 80.0-98.0 [place] [address]-12-06 09:53:13 Test Item Value Reference Range Interpretation Comments MCH (test code = MCH) 26.9 pg 27.0-31.0 [place] [address]-12-06 09:53:13 Test Item Value Reference Range Interpretation Comments MCHC (test code = MCHC) 32.4 32.0-36.0 [place] [address]-12-06 09:53:13 Test Item Value Reference Range Interpretation Comments RDW (test code = RDW) 16.5 11.5-14.5 [place] [address]-12-06 09:53:13 Test Item Value Reference Range Interpretation Comments Platelet (test code = Platelet) 157 133-450 [place] [address]-12-06 09:53:13 Test Item Value Reference Range Interpretation Comments MPV (test code = MPV) 7.5 7.4-10.4 [place] [address]-12-06 09:53:13 Test Item Value Reference Range Interpretation Comments Neutrophils # (test code = Neutrophils 7.2 1.5-8.1 #) [facility] HospitalQxorkfoBEWECOINLF2924-33-55 09:53:13 Test Item Value Reference Range Interpretation Comments Lymphocytes # (test code = Lymphocytes 0.9 1.0-5.5 #) [facility] HospitalRvyzwopOOBQZEOOBM9551-16-46 09:53:13 Test Item Value Reference Range Interpretation Comments Monocytes # (test code 0.5 See_Comment [Aut omated message] The = Monocytes #) system which generated this result tra nsmitted reference range : <=0.8. The reference r christiano was not used to int erpret this result as normal/abnormal . [facility] HospitalWrajxetCQVSKYBCRK1602-30-62 09:53:13 Test Item Value Reference Range Interpretation Comments Basophils # (test code 0.1 See_Comment [Aut omated message] The = Basophils #) system which generated this result tra nsmitted reference range : <=0.2. The reference r christiano was not used to int erpret this result as normal/abnormal . [facility] HospitalBodyiepDPODMWYALH7372-84-56 09:53:13 Test Item Value Reference Range Interpretation Comments Segs (test code = Segs) 83.0 45.0-75.0 [facility] HospitalYwuoovsMEQFVWMRKS7054-68-65 09:53:13 Test Item Value Reference Range Interpretation Comments Bands (test code = 0.0 See_Comment [Automat ed message] The Bands) system which ge nerated this result transmit sheba reference range : <=11.0. The reference r christiano was not used to interpr et this result as edy l/abnormal. [facility] HospitalTigevreFIJSHQXJCG1147-54-98 09:53:13 Test Item Value Reference Range Interpretation Comments Lymphocytes (test code = Lymphocytes) 10.0 20.0-40.0 [place] [address]-12-06 09:53:13 Test Item Value Reference Range Interpretation Comments Monocytes (test code = Monocytes) 6.0 2.0-12.0 [place] [address]-12-06 09:53:13 Test Item Value Reference Range Interpretation Comments Basophils (test code = 1.0 See_Comment [Aut omated message] The Basophils) system which ge nerated this result tra nsmitted reference range : <=1.0. The reference r christiano was not used to int erpret this result as normal/abnormal . [place] [address]-12-06 09:53:13 Test Item Value Reference Range Interpretation Comments Atypical Lymphs (test code = Atypical 0.0 Lymphs) [address]12-06 09:53:13 Test Item Value Reference Range Interpretation Comments RBC Morph (test code = Normal (09/05/20 3:53 RBC Morph) AM) [address]12-06 09:53:13 Test Item Value Reference Range Interpretation Comments Plt Morph (test code = Normal (09/05/20 3:53 Plt Morph) AM) [place] [address]-12-06 09:53:13 Test Item Value Reference Range Interpretation Comments Magnesium Lvl (test code = Magnesium 2.2 1.8-2.4 Lvl) [place] [address]-12-06 09:53:13 Test Item Value Reference Range Interpretation Comments Phosphorus (test code = Phosphorus) 2.9 2.5-4.5 [place] [address]-12-06 09:53:13 Test Item Value Reference Range Interpretation Comments Glucose Lvl (test code = Glucose Lvl) 102 70-99 [place] [address]-12-06 09:53:13 Test Item Value Reference Range Interpretation Comments BUN (test code = BUN) 17 7-22 [place] [address]-12-06 09:53:13 Test Item Value Reference Range Interpretation Comments Creatinine Lvl (test code = Creatinine 1.51 0.50-1.40 Lvl) [place] [address]-12-06 09:53:13 Test Item Value Reference Range Interpretation Comments Sodium Lvl (test code = Sodium Lvl) 140 135-145 [place] [address]-12-06 09:53:13 Test Item Value Reference Range Interpretation Comments Potassium Lvl (test code = Potassium 3.5 3.5-5.1 Lvl) [place] [address]-12-06 09:53:13 Test Item Value Reference Range Interpretation Comments Chloride Lvl (test code = Chloride Lvl) 106 95-109 [place] [address]-12-06 09:53:13 Test Item Value Reference Range Interpretation Comments CO2 (test code = CO2) 29 24-32 [place] [address]-12-06 09:53:13 Test Item Value Reference Range Interpretation Comments Calcium Lvl (test code = Calcium Lvl) 8.3 8.5-10.5 [place] [address]320-12-06 09:53:13 Test Item Value Reference Range Interpretation Comments AGAP (test code = AGAP) 8.5 10.0-20.0 [place] [address]-12-06 09:53:13 Test Item Value Reference Range Interpretation Comments eGFR (test code = eGFR) 33 [place] [address]4040-12-06 09:53:13 Test Item Value Reference Range Interpretation Comments WBC (test code = WBC) 8.7 3.7-10.4 [place] [address]-12-06 09:53:13 Test Item Value Reference Range Interpretation Comments RBC (test code = RBC) 3.96 4.20-5.40 [place] [address]-12-06 09:53:13 Test Item Value Reference Range Interpretation Comments Hgb (test code = Hgb) 10.7 12.0-16.0 [place] [address]-12-06 09:53:13 Test Item Value Reference Range Interpretation Comments Hct (test code = Hct) 32.8 36.0-48.0 [place] [address]-12-06 09:53:13 Test Item Value Reference Range Interpretation Comments MCV (test code = MCV) 83.0 80.0-98.0 [place] [address]4040-12-06 09:53:13 Test Item Value Reference Range Interpretation Comments MCH (test code = MCH) 26.9 pg 27.0-31.0 [place] 744040-12-06 09:53:13 Test Item Value Reference Range Interpretation Comments MCHC (test code = MCHC) 32.4 32.0-36.0 [place] [address]-12-06 09:53:13 Test Item Value Reference Range Interpretation Comments RDW (test code = RDW) 16.5 11.5-14.5 [place] [address]-12-06 09:53:13 Test Item Value Reference Range Interpretation Comments Platelet (test code = Platelet) 157 133-450 [place] [address]-12-06 09:53:13 Test Item Value Reference Range Interpretation Comments MPV (test code = MPV) 7.5 7.4-10.4 [place] [address]-12-06 09:53:13 Test Item Value Reference Range Interpretation Comments Neutrophils # (test code = Neutrophils 7.2 1.5-8.1 #) [facility] HospitalJyznkpaNEXBZAQLAE3664-89-76 09:53:13 Test Item Value Reference Range Interpretation Comments Lymphocytes # (test code = Lymphocytes 0.9 1.0-5.5 #) [place]4040-12-06 09:53:13 Test Item Value Reference Range Interpretation Comments Monocytes # (test code 0.5 See_Comment [Aut omated message] The = Monocytes #) system which generated this result tra nsmitted reference range : <=0.8. The reference r christiano was not used to int erpret this result as normal/abnormal . [place] [address]-12-06 09:53:13 Test Item Value Reference Range Interpretation Comments Basophils # (test code 0.1 See_Comment [Aut omated message] The = Basophils #) system which generated this result tra nsmitted reference range : <=0.2. The reference r christiano was not used to int erpret this result as normal/abnormal . [facility] HospitalDcugzxiCFAQOBZAUR1853-25-99 09:53:13 Test Item Value Reference Range Interpretation Comments Segs (test code = Segs) 83.0 45.0-75.0 [place] [address]-12-06 09:53:13 Test Item Value Reference Range Interpretation Comments Bands (test code = 0.0 See_Comment [Automat ed message] The Bands) system which ge nerated this result transmit sheba reference range : <=11.0. The reference r christiano was not used to interpr et this result as edy l/abnormal. [facility] HospitalYqlzdryUWGLVCAZHR2392-77-72 09:53:13 Test Item Value Reference Range Interpretation Comments Lymphocytes (test code = Lymphocytes) 10.0 20.0-40.0 [place] [address]-12-06 09:53:13 Test Item Value Reference Range Interpretation Comments Monocytes (test code = Monocytes) 6.0 2.0-12.0 [place] [address]-12-06 09:53:13 Test Item Value Reference Range Interpretation Comments Basophils (test code = 1.0 See_Comment [Aut omated message] The Basophils) system which ge nerated this result tra nsmitted reference range : <=1.0. The reference r christiano was not used to int erpret this result as normal/abnormal . [place] [address]-12-06 09:53:13 Test Item Value Reference Range Interpretation Comments Atypical Lymphs (test code = Atypical 0.0 Lymphs) [address]12-06 09:53:13 Test Item Value Reference Range Interpretation Comments RBC Morph (test code = Normal (09/05/20 3:53 RBC Morph) AM) [address]12-06 09:53:13 Test Item Value Reference Range Interpretation Comments Plt Morph (test code = Normal (09/05/20 3:53 Plt Morph) AM) [place] [address]-12-06 09:53:13 Test Item Value Reference Range Interpretation Comments Magnesium Lvl (test code = Magnesium 2.2 1.8-2.4 Lvl) [place] [address]-12-06 09:53:13 Test Item Value Reference Range Interpretation Comments Phosphorus (test code = Phosphorus) 2.9 2.5-4.5 [place] [address]-12-06 09:53:13 Test Item Value Reference Range Interpretation Comments Glucose Lvl (test code = Glucose Lvl) 102 70-99 [place] [address]-12-06 09:53:13 Test Item Value Reference Range Interpretation Comments BUN (test code = BUN) 17 7-22 [place] [address]-12-06 09:53:13 Test Item Value Reference Range Interpretation Comments Creatinine Lvl (test code = Creatinine 1.51 0.50-1.40 Lvl) [place] [address]-12-06 09:53:13 Test Item Value Reference Range Interpretation Comments Sodium Lvl (test code = Sodium Lvl) 140 135-145 [place] [address]-12-06 09:53:13 Test Item Value Reference Range Interpretation Comments Potassium Lvl (test code = Potassium 3.5 3.5-5.1 Lvl) [place] [address]-12-06 09:53:13 Test Item Value Reference Range Interpretation Comments Chloride Lvl (test code = Chloride Lvl) 106 95-109 [place] [address]-12-06 09:53:13 Test Item Value Reference Range Interpretation Comments CO2 (test code = CO2) 29 24-32 [facility]2020-12-06 09:53:13 Test Item Value Reference Range Interpretation Comments Calcium Lvl (test code = Calcium Lvl) 8.3 8.5-10.5 [place] 570320-12-06 09:53:13 Test Item Value Reference Range Interpretation Comments AGAP (test code = AGAP) 8.5 10.0-20.0 [place] [address]-12-06 09:53:13 Test Item Value Reference Range Interpretation Comments eGFR (test code = eGFR) 33 [place] [address]-12-06 09:53:13 Test Item Value Reference Range Interpretation Comments WBC (test code = WBC) 8.7 3.7-10.4 [place] [address]-12-06 09:53:13 Test Item Value Reference Range Interpretation Comments RBC (test code = RBC) 3.96 4.20-5.40 [place] [address]-12-06 09:53:13 Test Item Value Reference Range Interpretation Comments Hgb (test code = Hgb) 10.7 12.0-16.0 [place] [address]-12-06 09:53:13 Test Item Value Reference Range Interpretation Comments Hct (test code = Hct) 32.8 36.0-48.0 [place] [address]-12-06 09:53:13 Test Item Value Reference Range Interpretation Comments MCV (test code = MCV) 83.0 80.0-98.0 [place] [address]-12-06 09:53:13 Test Item Value Reference Range Interpretation Comments MCH (test code = MCH) 26.9 pg 27.0-31.0 [place] [address]-12-06 09:53:13 Test Item Value Reference Range Interpretation Comments MCHC (test code = MCHC) 32.4 32.0-36.0 [place] [address]-12-06 09:53:13 Test Item Value Reference Range Interpretation Comments RDW (test code = RDW) 16.5 11.5-14.5 [place] [address]-12-06 09:53:13 Test Item Value Reference Range Interpretation Comments Platelet (test code = Platelet) 157 133-450 [place] [address]-12-06 09:53:13 Test Item Value Reference Range Interpretation Comments MPV (test code = MPV) 7.5 7.4-10.4 [facility] 09:53:13 Test Item Value Reference Range Interpretation Comments Neutrophils # (test code = Neutrophils 7.2 1.5-8.1 #) [facility]lierfNDJGRWALXN2215-41-74 09:53:13 Test Item Value Reference Range Interpretation Comments Lymphocytes # (test code = Lymphocytes 0.9 1.0-5.5 #) [facility]XiczrljAIBUVEZQZX5965-81-33 09:53:13 Test Item Value Reference Range Interpretation Comments Monocytes # (test code 0.5 See_Comment [Aut omated message] The = Monocytes #) system which generated this result tra nsmitted reference range : <=0.8. The reference r christiano was not used to int erpret this result as normal/abnormal . [facility]MyhxnuqJCYFNMRXRC4406-85-18 09:53:13 Test Item Value Reference Range Interpretation Comments Basophils # (test code 0.1 See_Comment [Aut omated message] The = Basophils #) system which generated this result tra nsmitted reference range : <=0.2. The reference r christiano was not used to int erpret this result as normal/abnormal . [facility]TpfhqorKQKEFVVPJI7316-10-12 09:53:13 Test Item Value Reference Range Interpretation Comments Segs (test code = Segs) 83.0 45.0-75.0 [facility] HospitalPhyrizyEABCSAGMMD6322-92-47 09:53:13 Test Item Value Reference Range Interpretation Comments Bands (test code = 0.0 See_Comment [Automat ed message] The Bands) system which ge nerated this result transmit sheba reference range : <=11.0. The reference r christiano was not used to interpr et this result as edy l/abnormal. [place] 744040-12-06 09:53:13 Test Item Value Reference Range Interpretation Comments Lymphocytes (test code = Lymphocytes) 10.0 20.0-40.0 [place] [address]-12-06 09:53:13 Test Item Value Reference Range Interpretation Comments Monocytes (test code = Monocytes) 6.0 2.0-12.0 [place] [address]-12-06 09:53:13 Test Item Value Reference Range Interpretation Comments Basophils (test code = 1.0 See_Comment [Aut omated message] The Basophils) system which ge nerated this result tra nsmitted reference range : <=1.0. The reference r christiano was not used to int erpret this result as normal/abnormal . [place] [address]-12-06 09:53:13 Test Item Value Reference Range Interpretation Comments Atypical Lymphs (test code = Atypical 0.0 Lymphs) [place] [address]-12-06 09:53:13 Test Item Value Reference Range Interpretation Comments RBC Morph (test code = Normal (09/05/20 3:53 RBC Morph) AM) [place] [address]-12-06 09:53:13 Test Item Value Reference Range Interpretation Comments Plt Morph (test code = Normal (09/05/20 3:53 Plt Morph) AM) [place] 570320-12-06 09:53:13 Test Item Value Reference Range Interpretation Comments Magnesium Lvl (test code = Magnesium 2.2 1.8-2.4 Lvl) [place] 570320-12-06 09:53:13 Test Item Value Reference Range Interpretation Comments Phosphorus (test code = Phosphorus) 2.9 2.5-4.5 [place] [address]-12-06 09:53:13 Test Item Value Reference Range Interpretation Comments Glucose Lvl (test code = Glucose Lvl) 102 70-99 [place] [address]-12-06 09:53:13 Test Item Value Reference Range Interpretation Comments BUN (test code = BUN) 17 7-22 [place] [address]-12-06 09:53:13 Test Item Value Reference Range Interpretation Comments Creatinine Lvl (test code = Creatinine 1.51 0.50-1.40 Lvl) [place] 570320-12-06 09:53:13 Test Item Value Reference Range Interpretation Comments Sodium Lvl (test code = Sodium Lvl) 140 135-145 [place] [address]-12-06 09:53:13 Test Item Value Reference Range Interpretation Comments Potassium Lvl (test code = Potassium 3.5 3.5-5.1 Lvl) [place] [address]-12-06 09:53:13 Test Item Value Reference Range Interpretation Comments Chloride Lvl (test code = Chloride Lvl) 106 95-109 [place] 570320-12-06 09:53:13 Test Item Value Reference Range Interpretation Comments CO2 (test code = CO2) 29 24-32 [place] 570320-12-06 09:53:13 Test Item Value Reference Range Interpretation Comments Calcium Lvl (test code = Calcium Lvl) 8.3 8.5-10.5 [place] [address]-12-06 09:53:13 Test Item Value Reference Range Interpretation Comments AGAP (test code = AGAP) 8.5 10.0-20.0 [place] [address]-12-06 09:53:13 Test Item Value Reference Range Interpretation Comments eGFR (test code = eGFR) 33 [place] [address]-12-06 09:53:13 Test Item Value Reference Range Interpretation Comments WBC (test code = WBC) 8.7 3.7-10.4 [place] [address]-12-06 09:53:13 Test Item Value Reference Range Interpretation Comments RBC (test code = RBC) 3.96 4.20-5.40 [place] [address]-12-06 09:53:13 Test Item Value Reference Range Interpretation Comments Hgb (test code = Hgb) 10.7 12.0-16.0 [place] [address]-12-06 09:53:13 Test Item Value Reference Range Interpretation Comments Hct (test code = Hct) 32.8 36.0-48.0 [place] [address]-12-06 09:53:13 Test Item Value Reference Range Interpretation Comments Magnesium Lvl (test code = Magnesium 2.2 1.8-2.4 Lvl) [place] [address]320-12-06 09:53:13 Test Item Value Reference Range Interpretation Comments Phosphorus (test code = Phosphorus) 2.9 2.5-4.5 [place] [address]-12-06 09:53:13 Test Item Value Reference Range Interpretation Comments Glucose Lvl (test code = Glucose Lvl) 102 70-99 [place] [address]-12-06 09:53:13 Test Item Value Reference Range Interpretation Comments BUN (test code = BUN) 17 7-22 [place] 570320-12-06 09:53:13 Test Item Value Reference Range Interpretation Comments Creatinine Lvl (test code = Creatinine 1.51 0.50-1.40 Lvl) [address]12-06 09:53:13 Test Item Value Reference Range Interpretation Comments MCV (test code = MCV) 83.0 80.0-98.0 [address]12-06 09:53:13 Test Item Value Reference Range Interpretation Comments Sodium Lvl (test code = Sodium Lvl) 140 135-145 [address]12-06 09:53:13 Test Item Value Reference Range Interpretation Comments Potassium Lvl (test code = Potassium 3.5 3.5-5.1 Lvl) [address]12-06 09:53:13 Test Item Value Reference Range Interpretation Comments Chloride Lvl (test code = Chloride Lvl) 106 95-109 [address]12-06 09:53:13 Test Item Value Reference Range Interpretation Comments CO2 (test code = CO2) 29 24-32 [address]12-06 09:53:13 Test Item Value Reference Range Interpretation Comments Calcium Lvl (test code = Calcium Lvl) 8.3 8.5-10.[address]12-06 09:53:13 Test Item Value Reference Range Interpretation Comments AGAP (test code = AGAP) 8.5 10.0-20.0 [place] [address]-12-06 09:53:13 Test Item Value Reference Range Interpretation Comments eGFR (test code = eGFR) 33 [place] [address]-12-06 09:53:13 Test Item Value Reference Range Interpretation Comments WBC (test code = WBC) 8.7 3.7-10.4 [place] [address]-12-06 09:53:13 Test Item Value Reference Range Interpretation Comments RBC (test code = RBC) 3.96 4.20-5.40 [place] [address]-12-06 09:53:13 Test Item Value Reference Range Interpretation Comments Hgb (test code = Hgb) 10.7 12.0-16.[address]12-06 09:53:13 Test Item Value Reference Range Interpretation Comments MCH (test code = MCH) 26.9 pg 27.0-31.[address]12-06 09:53:13 Test Item Value Reference Range Interpretation Comments Hct (test code = Hct) 32.8 36.0-48.0 [address]12-06 09:53:13 Test Item Value Reference Range Interpretation Comments MCV (test code = MCV) 83.0 80.0-98.0 [address]12-06 09:53:13 Test Item Value Reference Range Interpretation Comments MCH (test code = MCH) 26.9 pg 27.0-31.0 [place] [address]-12-06 09:53:13 Test Item Value Reference Range Interpretation Comments MCHC (test code = MCHC) 32.4 32.0-36.0 [place] [address]-12-06 09:53:13 Test Item Value Reference Range Interpretation Comments RDW (test code = RDW) 16.5 11.5-14.[address]12-06 09:53:13 Test Item Value Reference Range Interpretation Comments Platelet (test code = Platelet) 157 133-450 [place] [address]-12-06 09:53:13 Test Item Value Reference Range Interpretation Comments MPV (test code = MPV) 7.5 7.4-10.4 [place] [address]-12-06 09:53:13 Test Item Value Reference Range Interpretation Comments Neutrophils # (test code = Neutrophils 7.2 1.5-8.1 #) [place] [address]-12-06 09:53:13 Test Item Value Reference Range Interpretation Comments Lymphocytes # (test code = Lymphocytes 0.9 1.0-5.5 #) [place] [address]-12-06 09:53:13 Test Item Value Reference Range Interpretation Comments Monocytes # (test code 0.5 See_Comment [Aut omated message] The = Monocytes #) system which generated this result tra nsmitted reference range : <=0.8. The reference r christiano was not used to int erpret this result as normal/abnormal . [place] [address]-12-06 09:53:13 Test Item Value Reference Range Interpretation Comments MCHC (test code = MCHC) 32.4 32.0-36.0 [place] [address]-12-06 09:53:13 Test Item Value Reference Range Interpretation Comments Basophils # (test code 0.1 See_Comment [Aut omated message] The = Basophils #) system which generated this result tra nsmitted reference range : <=0.2. The reference r christiano was not used to int erpret this result as normal/abnormal . [facility] HospitalVegtjjvZBAPRFHFMI9874-87-60 09:53:13 Test Item Value Reference Range Interpretation Comments Segs (test code = Segs) 83.0 45.0-75.0 [facility] HospitalXdubyxgPBSVSZPIQX6239-93-80 09:53:13 Test Item Value Reference Range Interpretation Comments Bands (test code = 0.0 See_Comment [Automat ed message] The Bands) system which ge nerated this result transmit sheba reference range : <=11.0. The reference r christiano was not used to interpr et this result as edy l/abnormal. [facility] HospitalEmfowqiHTHWTHITKL5106-48-37 09:53:13 Test Item Value Reference Range Interpretation Comments Lymphocytes (test code = Lymphocytes) 10.0 20.0-40.0 [facility] HospitalKhsmkrdLHDDHFOMNY7251-45-65 09:53:13 Test Item Value Reference Range Interpretation Comments Monocytes (test code = Monocytes) 6.0 2.0-12.0 [facility] HospitalPznhejsCGCCCQFNTB3831-57-06 09:53:13 Test Item Value Reference Range Interpretation Comments Basophils (test code = 1.0 See_Comment [Aut omated message] The Basophils) system which ge nerated this result tra nsmitted reference range : <=1.0. The reference r christiano was not used to int erpret this result as normal/abnormal . [facility] HospitalGlnsfosWVXAMLHIVC9367-05-29 09:53:13 Test Item Value Reference Range Interpretation Comments Atypical Lymphs (test code = Atypical 0.0 Lymphs) [facility] HospitalHesrjxbGOJZZPIGQQ8014-03-56 09:53:13 Test Item Value Reference Range Interpretation Comments RBC Morph (test code = Normal (09/05/20 3:53 RBC Morph) AM) [facility] HospitalCerntkuOAXDGGEBBF5767-32-36 09:53:13 Test Item Value Reference Range Interpretation Comments Plt Morph (test code = Normal (09/05/20 3:53 Plt Morph) AM) [facility] HospitalAipkzqzEVYJEPJBYQ0677-76-44 09:53:13 Test Item Value Reference Range Interpretation Comments RDW (test code = RDW) 16.5 11.5-14.5 [place] 744040-12-06 09:53:13 Test Item Value Reference Range Interpretation Comments Platelet (test code = Platelet) 157 133-450 [facility] HospitalZfdtsvvBQKBTOUOSD5246-86-99 09:53:13 Test Item Value Reference Range Interpretation Comments MPV (test code = MPV) 7.5 7.4-10.4 [place] 744040-12-06 09:53:13 Test Item Value Reference Range Interpretation Comments Neutrophils # (test code = Neutrophils 7.2 1.5-8.1 #) [facility] HospitalCepwxjxHPAGVMZKOL6668-80-94 09:53:13 Test Item Value Reference Range Interpretation Comments Lymphocytes # (test code = Lymphocytes 0.9 1.0-5.5 #) [facility] HospitalCrmxhohIOUHQWTVNL8543-55-79 09:53:13 Test Item Value Reference Range Interpretation Comments Monocytes # (test code 0.5 See_Comment [Aut omated message] The = Monocytes #) system which generated this result tra nsmitted reference range : <=0.8. The reference r christiano was not used to int erpret this result as normal/abnormal . [facility] HospitalRokouazYNRSVWOKKC4103-64-81 09:53:13 Test Item Value Reference Range Interpretation Comments Basophils # (test code 0.1 See_Comment [Aut omated message] The = Basophils #) system which generated this result tra nsmitted reference range : <=0.2. The reference r christiano was not used to int erpret this result as normal/abnormal . [facility] HospitalVruaxbgZAZWFCRVJM5618-68-25 09:53:13 Test Item Value Reference Range Interpretation Comments Segs (test code = Segs) 83.0 45.0-75.0 [place] [address]-12-06 09:53:13 Test Item Value Reference Range Interpretation Comments Bands (test code = 0.0 See_Comment [Automat ed message] The Bands) system which ge nerated this result transmit sheba reference range : <=11.0. The reference r christiano was not used to interpr et this result as edy l/abnormal. [place]4040-12-06 09:53:13 Test Item Value Reference Range Interpretation Comments Lymphocytes (test code = Lymphocytes) 10.0 20.0-40.0 [place] [address]-12-06 09:53:13 Test Item Value Reference Range Interpretation Comments Monocytes (test code = Monocytes) 6.0 2.0-12.0 [place] [address]-12-06 09:53:13 Test Item Value Reference Range Interpretation Comments Basophils (test code = 1.0 See_Comment [Aut omated message] The Basophils) system which ge nerated this result tra nsmitted reference range : <=1.0. The reference r christiano was not used to int erpret this result as normal/abnormal . [place] [address]-12-06 09:53:13 Test Item Value Reference Range Interpretation Comments Atypical Lymphs (test code = Atypical 0.0 Lymphs) [place] [address]-12-06 09:53:13 Test Item Value Reference Range Interpretation Comments RBC Morph (test code = Normal (09/05/20 3:53 RBC Morph) AM) [place] 744040-12-06 09:53:13 Test Item Value Reference Range Interpretation Comments Plt Morph (test code = Normal (09/05/20 3:53 Plt Morph) AM) [place] [address]320-12-06 09:53:13 Test Item Value Reference Range Interpretation Comments Magnesium Lvl (test code = Magnesium 2.2 1.8-2.4 Lvl) [place] 570320-12-06 09:53:13 Test Item Value Reference Range Interpretation Comments Phosphorus (test code = Phosphorus) 2.9 2.5-4.5 [place] 570320-12-06 09:53:13 Test Item Value Reference Range Interpretation Comments Glucose Lvl (test code = Glucose Lvl) 102 70-99 [place] 570320-12-06 09:53:13 Test Item Value Reference Range Interpretation Comments BUN (test code = BUN) 17 7-22 [place] [address]-12-06 09:53:13 Test Item Value Reference Range Interpretation Comments Creatinine Lvl (test code = Creatinine 1.51 0.50-1.40 Lvl) [place] 570320-12-06 09:53:13 Test Item Value Reference Range Interpretation Comments Sodium Lvl (test code = Sodium Lvl) 140 135-145 [place] 570320-12-06 09:53:13 Test Item Value Reference Range Interpretation Comments Potassium Lvl (test code = Potassium 3.5 3.5-5.1 Lvl) [place] [address]320-12-06 09:53:13 Test Item Value Reference Range Interpretation Comments Chloride Lvl (test code = Chloride Lvl) 106 95-109 [address]12-06 09:53:13 Test Item Value Reference Range Interpretation Comments CO2 (test code = CO2) 29 24-32 [place] [address]-12-06 09:53:13 Test Item Value Reference Range Interpretation Comments Calcium Lvl (test code = Calcium Lvl) 8.3 8.5-10.5 [address]12-06 09:53:13 Test Item Value Reference Range Interpretation Comments AGAP (test code = AGAP) 8.5 10.0-20.0 [place] [address]-12-06 09:53:13 Test Item Value Reference Range Interpretation Comments eGFR (test code = eGFR) 33 [place] 744040-12-06 09:53:13 Test Item Value Reference Range Interpretation Comments WBC (test code = WBC) 8.7 3.7-10.4 [place] [address]-12-06 09:53:13 Test Item Value Reference Range Interpretation Comments RBC (test code = RBC) 3.96 4.20-5.40 [place] [address]-12-06 09:53:13 Test Item Value Reference Range Interpretation Comments Hgb (test code = Hgb) 10.7 12.0-16.0 [place] [address]-12-06 09:53:13 Test Item Value Reference Range Interpretation Comments Hct (test code = Hct) 32.8 36.0-48.0 [place] [address]-12-06 09:53:13 Test Item Value Reference Range Interpretation Comments MCV (test code = MCV) 83.0 80.0-98.0 [place] [address]-12-06 09:53:13 Test Item Value Reference Range Interpretation Comments MCH (test code = MCH) 26.9 pg 27.0-31.0 [place] [address]-12-06 09:53:13 Test Item Value Reference Range Interpretation Comments MCHC (test code = MCHC) 32.4 32.0-36.0 [address]12-06 09:53:13 Test Item Value Reference Range Interpretation Comments RDW (test code = RDW) 16.5 11.5-14.5 [place] [address]-12-06 09:53:13 Test Item Value Reference Range Interpretation Comments Platelet (test code = Platelet) 157 133-450 [place] [address]-12-06 09:53:13 Test Item Value Reference Range Interpretation Comments MPV (test code = MPV) 7.5 7.4-10.[address]12-06 09:53:13 Test Item Value Reference Range Interpretation Comments Neutrophils # (test code = Neutrophils 7.2 1.5-8.1 #) [place] [address]-12-06 09:53:13 Test Item Value Reference Range Interpretation Comments Lymphocytes # (test code = Lymphocytes 0.9 1.0-5.5 #) [place] [address]-12-06 09:53:13 Test Item Value Reference Range Interpretation Comments Monocytes # (test code 0.5 See_Comment [Aut omated message] The = Monocytes #) system which generated this result tra nsmitted reference range : <=0.8. The reference r christiano was not used to int erpret this result as normal/abnormal . [place] [address]-12-06 09:53:13 Test Item Value Reference Range Interpretation Comments Basophils # (test code 0.1 See_Comment [Aut omated message] The = Basophils #) system which generated this result tra nsmitted reference range : <=0.2. The reference r christiano was not used to int erpret this result as normal/abnormal . [place] [address]-12-06 09:53:13 Test Item Value Reference Range Interpretation Comments Segs (test code = Segs) 83.0 45.0-75.0 [address]12-06 09:53:13 Test Item Value Reference Range Interpretation Comments Bands (test code = 0.0 See_Comment [Automat ed message] The Bands) system which ge nerated this result transmit sheba reference range : <=11.0. The reference r christiano was not used to interpr et this result as edy l/abnormal. [place] [address]-12-06 09:53:13 Test Item Value Reference Range Interpretation Comments Lymphocytes (test code = Lymphocytes) 10.0 20.0-40.0 [place] [address]-12-06 09:53:13 Test Item Value Reference Range Interpretation Comments Monocytes (test code = Monocytes) 6.0 2.0-12.0 [place] [address]-12-06 09:53:13 Test Item Value Reference Range Interpretation Comments Basophils (test code = 1.0 See_Comment [Aut omated message] The Basophils) system which ge nerated this result tra nsmitted reference range : <=1.0. The reference r christiano was not used to int erpret this result as normal/abnormal . [place]4040-12-06 09:53:13 Test Item Value Reference Range Interpretation Comments Atypical Lymphs (test code = Atypical 0.0 Lymphs) [place] [address]-12-06 09:53:13 Test Item Value Reference Range Interpretation Comments RBC Morph (test code = Normal (09/05/20 3:53 RBC Morph) AM) [place]4040-12-06 09:53:13 Test Item Value Reference Range Interpretation Comments Plt Morph (test code = Normal (09/05/20 3:53 Plt Morph) AM) [facility]2020-12-06 09:53:13 Test Item Value Reference Range Interpretation Comments Magnesium Lvl (test code = Magnesium 2.2 1.8-2.4 Lvl) [place] [address]320-12-06 09:53:13 Test Item Value Reference Range Interpretation Comments Phosphorus (test code = Phosphorus) 2.9 2.5-4.5 [place] 570320-12-06 09:53:13 Test Item Value Reference Range Interpretation Comments Glucose Lvl (test code = Glucose Lvl) 102 70-99 [place] [address]-12-06 09:53:13 Test Item Value Reference Range Interpretation Comments BUN (test code = BUN) 17 7-22 [place] [address]-12-06 09:53:13 Test Item Value Reference Range Interpretation Comments Creatinine Lvl (test code = Creatinine 1.51 0.50-1.40 Lvl) [place] 570320-12-06 09:53:13 Test Item Value Reference Range Interpretation Comments Sodium Lvl (test code = Sodium Lvl) 140 135-145 [place] [address]-12-06 09:53:13 Test Item Value Reference Range Interpretation Comments Potassium Lvl (test code = Potassium 3.5 3.5-5.1 Lvl) [place] [address]-12-06 09:53:13 Test Item Value Reference Range Interpretation Comments Chloride Lvl (test code = Chloride Lvl) 106 95-109 [place] [address]-12-06 09:53:13 Test Item Value Reference Range Interpretation Comments CO2 (test code = CO2) 29 24-32 [address]12-06 09:53:13 Test Item Value Reference Range Interpretation Comments Calcium Lvl (test code = Calcium Lvl) 8.3 8.5-10.5 [place] [address]-12-06 09:53:13 Test Item Value Reference Range Interpretation Comments AGAP (test code = AGAP) 8.5 10.0-20.0 [place] [address]-12-06 09:53:13 Test Item Value Reference Range Interpretation Comments eGFR (test code = eGFR) 33 [place] [address]-12-06 09:53:13 Test Item Value Reference Range Interpretation Comments WBC (test code = WBC) 8.7 3.7-10.4 [place] [address]-12-06 09:53:13 Test Item Value Reference Range Interpretation Comments RBC (test code = RBC) 3.96 4.20-5.40 [place] [address]-12-06 09:53:13 Test Item Value Reference Range Interpretation Comments Hgb (test code = Hgb) 10.7 12.0-16.0 [place] [address]-12-06 09:53:13 Test Item Value Reference Range Interpretation Comments Hct (test code = Hct) 32.8 36.0-48.[address]12-06 09:53:13 Test Item Value Reference Range Interpretation Comments MCV (test code = MCV) 83.0 80.0-98.[address]12-06 09:53:13 Test Item Value Reference Range Interpretation Comments MCH (test code = MCH) 26.9 pg 27.0-31.0 [place] [address]-12-06 09:53:13 Test Item Value Reference Range Interpretation Comments MCHC (test code = MCHC) 32.4 32.0-36.0 [place] [address]-12-06 09:53:13 Test Item Value Reference Range Interpretation Comments RDW (test code = RDW) 16.5 11.5-14.5 [place] [address]-12-06 09:53:13 Test Item Value Reference Range Interpretation Comments Platelet (test code = Platelet) 157 133-450 [place] [address]-12-06 09:53:13 Test Item Value Reference Range Interpretation Comments MPV (test code = MPV) 7.5 7.4-10.4 [place] [address]-12-06 09:53:13 Test Item Value Reference Range Interpretation Comments Neutrophils # (test code = Neutrophils 7.2 1.5-8.1 #) [facility] 09:53:13 Test Item Value Reference Range Interpretation Comments Lymphocytes # (test code = Lymphocytes 0.9 1.0-5.5 #) [place] [address]-12-06 09:53:13 Test Item Value Reference Range Interpretation Comments Monocytes # (test code 0.5 See_Comment [Aut omated message] The = Monocytes #) system which generated this result tra nsmitted reference range : <=0.8. The reference r christiano was not used to int erpret this result as normal/abnormal . [place] [address]-12-06 09:53:13 Test Item Value Reference Range Interpretation Comments Basophils # (test code 0.1 See_Comment [Aut omated message] The = Basophils #) system which generated this result tra nsmitted reference range : <=0.2. The reference r christiano was not used to int erpret this result as normal/abnormal . [place] [address]-12-06 09:53:13 Test Item Value Reference Range Interpretation Comments Segs (test code = Segs) 83.0 45.0-75.0 [place] [address]-12-06 09:53:13 Test Item Value Reference Range Interpretation Comments Bands (test code = 0.0 See_Comment [Automat ed message] The Bands) system which ge nerated this result transmit sheba reference range : <=11.0. The reference r christiano was not used to interpr et this result as edy l/abnormal. [place] [address]-12-06 09:53:13 Test Item Value Reference Range Interpretation Comments Lymphocytes (test code = Lymphocytes) 10.0 20.0-40.[address]12-06 09:53:13 Test Item Value Reference Range Interpretation Comments Monocytes (test code = Monocytes) 6.0 2.0-12.0 [place] [address]-12-06 09:53:13 Test Item Value Reference Range Interpretation Comments Basophils (test code = 1.0 See_Comment [Aut omated message] The Basophils) system which ge nerated this result tra nsmitted reference range : <=1.0. The reference r christiano was not used to int erpret this result as normal/abnormal . [place] [address]-12-06 09:53:13 Test Item Value Reference Range Interpretation Comments Atypical Lymphs (test code = Atypical 0.0 Lymphs) [address]12-06 09:53:13 Test Item Value Reference Range Interpretation Comments RBC Morph (test code = Normal (09/05/20 3:53 RBC Morph) AM) [address]12-06 09:53:13 Test Item Value Reference Range Interpretation Comments Plt Morph (test code = Normal (09/05/20 3:53 Plt Morph) AM) [address]12-06 09:53:13 Test Item Value Reference Range Interpretation Comments Magnesium Lvl (test code = Magnesium 2.2 1.8-2.4 Lvl) [place] [address]-12-06 09:53:13 Test Item Value Reference Range Interpretation Comments Phosphorus (test code = Phosphorus) 2.9 2.5-4.[address]12-06 09:53:13 Test Item Value Reference Range Interpretation Comments Glucose Lvl (test code = Glucose Lvl) 102 70-99 [place] [address]-12-06 09:53:13 Test Item Value Reference Range Interpretation Comments BUN (test code = BUN) 17 7-22 [place] [address]-12-06 09:53:13 Test Item Value Reference Range Interpretation Comments Creatinine Lvl (test code = Creatinine 1.51 0.50-1.40 Lvl) [place] [address]-12-06 09:53:13 Test Item Value Reference Range Interpretation Comments Sodium Lvl (test code = Sodium Lvl) 140 135-145 [place] [address]-12-06 09:53:13 Test Item Value Reference Range Interpretation Comments Potassium Lvl (test code = Potassium 3.5 3.5-5.1 Lvl) [address]12-06 09:53:13 Test Item Value Reference Range Interpretation Comments Chloride Lvl (test code = Chloride Lvl) 106 95-109 [place] [address]-12-06 09:53:13 Test Item Value Reference Range Interpretation Comments CO2 (test code = CO2) 29 24-[address]12-06 09:53:13 Test Item Value Reference Range Interpretation Comments Calcium Lvl (test code = Calcium Lvl) 8.3 8.5-10.5 [place] [address]-12-06 09:53:13 Test Item Value Reference Range Interpretation Comments AGAP (test code = AGAP) 8.5 10.0-20.[address]12-06 09:53:13 Test Item Value Reference Range Interpretation Comments eGFR (test code = eGFR) 33 [place] [address]-12-06 09:53:13 Test Item Value Reference Range Interpretation Comments WBC (test code = WBC) 8.7 3.7-10.4 [place] [address]-12-06 09:53:13 Test Item Value Reference Range Interpretation Comments RBC (test code = RBC) 3.96 4.20-5.40 [place] [address]-12-06 09:53:13 Test Item Value Reference Range Interpretation Comments Hgb (test code = Hgb) 10.7 12.0-16.[address]12-06 09:53:13 Test Item Value Reference Range Interpretation Comments Hct (test code = Hct) 32.8 36.0-48.[address]12-06 09:53:13 Test Item Value Reference Range Interpretation Comments MCV (test code = MCV) 83.0 80.0-98.[address]12-06 09:53:13 Test Item Value Reference Range Interpretation Comments MCH (test code = MCH) 26.9 pg 27.0-31.0 [place] [address]4040-12-06 09:53:13 Test Item Value Reference Range Interpretation Comments MCHC (test code = MCHC) 32.4 32.0-36.0 [place] 744040-12-06 09:53:13 Test Item Value Reference Range Interpretation Comments RDW (test code = RDW) 16.5 11.5-14.5 [place] [address]-12-06 09:53:13 Test Item Value Reference Range Interpretation Comments Platelet (test code = Platelet) 157 133-450 [place] [address]-12-06 09:53:13 Test Item Value Reference Range Interpretation Comments MPV (test code = MPV) 7.5 7.4-10.4 [place] [address]4040-12-06 09:53:13 Test Item Value Reference Range Interpretation Comments Neutrophils # (test code = Neutrophils 7.2 1.5-8.1 #) [place]4040-12-06 09:53:13 Test Item Value Reference Range Interpretation Comments Lymphocytes # (test code = Lymphocytes 0.9 1.0-5.5 #) [place]4040-12-06 09:53:13 Test Item Value Reference Range Interpretation Comments Monocytes # (test code 0.5 See_Comment [Aut omated message] The = Monocytes #) system which generated this result tra nsmitted reference range : <=0.8. The reference r christiano was not used to int erpret this result as normal/abnormal . [place] 744040-12-06 09:53:13 Test Item Value Reference Range Interpretation Comments Basophils # (test code 0.1 See_Comment [Aut omated message] The = Basophils #) system which generated this result tra nsmitted reference range : <=0.2. The reference r christiano was not used to int erpret this result as normal/abnormal . [place] [address]-12-06 09:53:13 Test Item Value Reference Range Interpretation Comments Segs (test code = Segs) 83.0 45.0-75.0 [place] [address]-12-06 09:53:13 Test Item Value Reference Range Interpretation Comments Bands (test code = 0.0 See_Comment [Automat ed message] The Bands) system which ge nerated this result transmit sheba reference range : <=11.0. The reference r christiano was not used to interpr et this result as edy l/abnormal. [facility]jq[facility]wyVPRKUFPWBY2526-89-42 09:53:13 Test Item Value Reference Range Interpretation Comments Lymphocytes (test code = Lymphocytes) 10.0 20.0-40.0 [place] [address]4040-12-06 09:53:13 Test Item Value Reference Range Interpretation Comments Monocytes (test code = Monocytes) 6.0 2.0-12.0 [place] 744040-12-06 09:53:13 Test Item Value Reference Range Interpretation Comments Basophils (test code = 1.0 See_Comment [Aut omated message] The Basophils) system which ge nerated this result tra nsmitted reference range : <=1.0. The reference r christiano was not used to int erpret this result as normal/abnormal . [facility] HospitalBnbilgfXLLEUPPCTZ4434-46-69 09:53:13 Test Item Value Reference Range Interpretation Comments Atypical Lymphs (test code = Atypical 0.0 Lymphs) [place] 744040-12-06 09:53:13 Test Item Value Reference Range Interpretation Comments RBC Morph (test code = Normal (09/05/20 3:53 RBC Morph) AM) [place] [address]4040-12-06 09:53:13 Test Item Value Reference Range Interpretation Comments Plt Morph (test code = Normal (09/05/20 3:53 Plt Morph) AM) [facility]XONY5730[facility] 09:53:00 Test Item Value Reference Range Interpretation Comments Coronavirus (COVID-19) Not Detected (09/05/20 JONATHAN (test code = 3:53 AM) Coronavirus (COVID-19) JONATHAN) [place] [address]-12-06 09:53:00 Test Item Value Reference Range Interpretation Comments Coronavirus (COVID-19) Not Detected (09/05/20 JONATHAN (test code = 3:53 AM) Coronavirus (COVID-19) JONATHAN) [place] [address]-12-06 09:53:00 Test Item Value Reference Range Interpretation Comments Coronavirus (COVID-19) Not Detected (09/05/20 JONATHAN (test code = 3:53 AM) Coronavirus (COVID-19) JONATHAN) [place] [address]-12-06 09:53:00 Test Item Value Reference Range Interpretation Comments Coronavirus (COVID-19) Not Detected (09/05/20 JONATHAN (test code = 3:53 AM) Coronavirus (COVID-19) JONATHAN) [place] [address]-12-06 09:53:00 Test Item Value Reference Range Interpretation Comments Coronavirus (COVID-19) Not Detected (09/05/20 JONATHAN (test code = 3:53 AM) Coronavirus (COVID-19) JONATHAN) [address]12-06 09:53:00 Test Item Value Reference Range Interpretation Comments Coronavirus (COVID-19) Not Detected (09/05/20 JONATHAN (test code = 3:53 AM) Coronavirus (COVID-19) JONATHAN) [address]12-06 09:53:00 Test Item Value Reference Range Interpretation Comments Coronavirus (COVID-19) Not Detected (09/05/20 JONATHAN (test code = 3:53 AM) Coronavirus (COVID-19) JONATHAN) [place] [address]-12-06 09:53:00 Test Item Value Reference Range Interpretation Comments Coronavirus (COVID-19) Not Detected (09/05/20 JONATHAN (test code = 3:53 AM) Coronavirus (COVID-19) JONATHAN) [place] [address]-12-06 09:53:00 Test Item Value Reference Range Interpretation Comments Coronavirus (COVID-19) Not Detected (09/05/20 JONATHAN (test code = 3:53 AM) Coronavirus (COVID-19) JONATHAN) [place] [address]-12-06 09:53:00 Test Item Value Reference Range Interpretation Comments Coronavirus (COVID-19) Not Detected (09/05/20 JONATHAN (test code = 3:53 AM) Coronavirus (COVID-19) JONATHAN) [place] [address]-12-06 09:53:00 Test Item Value Reference Range Interpretation Comments Coronavirus (COVID-19) Not Detected (09/05/20 JONATHAN (test code = 3:53 AM) Coronavirus (COVID-19) JONATHAN) [place] [address]-12-06 09:53:00 Test Item Value Reference Range Interpretation Comments Coronavirus (COVID-19) Not Detected (09/05/20 JONATHAN (test code = 3:53 AM) Coronavirus (COVID-19) JONATHAN) [facility]kihswzOUEKJRCWRA2403-39-69 09:53:00 Test Item Value Reference Range Interpretation Comments Coronavirus (COVID-19) Not Detected (09/05/20 JONATHAN (test code = 3:53 AM) Coronavirus (COVID-19) JONATHAN) [facility] SystemOegprjlATBJWFLARP7739-46-79 09:53:00 Test Item Value Reference Range Interpretation Comments Coronavirus (COVID-19) Not Detected (09/05/20 JONATHAN (test code = 3:53 AM) Coronavirus (COVID-19) JONATHAN) [facility] SystemJoozwtnLYUMMUAGOG0336-26-71 09:53:00 Test Item Value Reference Range Interpretation Comments Coronavirus (COVID-19) Not Detected (09/05/20 JONATHAN (test code = 3:53 AM) Coronavirus (COVID-19) JONATHAN) [facility]udaCARDI[facility] [id number] 04:34:00 Test Item Value Reference Range Interpretation Comments Troponin-I (test code no gt See_Comment [Auto mated message] The = Troponin-I) system which g enerated this result transmit sheba reference range : <=0.40. The reference r christiano was not used to interpr et this result as edy l/abnormal. [facility] [id number] 04:34:00 Test Item Value Reference Range Interpretation Comments Glucose Lvl (test code = Glucose Lvl) 125 70-99 [facility] [id number] 04:34:00 Test Item Value Reference Range Interpretation Comments BUN (test code = BUN) 17 7-22 [facility] [id number] 04:34:00 Test Item Value Reference Range Interpretation Comments Creatinine Lvl (test code = Creatinine 1.51 0.50-1.40 Lvl) [facility] [id number] 04:34:00 Test Item Value Reference Range Interpretation Comments Sodium Lvl (test code = Sodium Lvl) 142 135-145 [facility] [id number] 04:34:00 Test Item Value Reference Range Interpretation Comments Potassium Lvl (test code = Potassium 4.0 3.5-5.1 Lvl) [place] [address]-12-06 04:34:00 Test Item Value Reference Range Interpretation Comments Chloride Lvl (test code = Chloride Lvl) 108 95-109 [place] [address]-12-06 04:34:00 Test Item Value Reference Range Interpretation Comments CO2 (test code = CO2) 30 24-32 [place] [address]-12-06 04:34:00 Test Item Value Reference Range Interpretation Comments Calcium Lvl (test code = Calcium Lvl) 7.8 8.5-10.5 [place] [address]-12-06 04:34:00 Test Item Value Reference Range Interpretation Comments AGAP (test code = AGAP) 8.0 10.0-20.0 [place] [address]-12-06 04:34:00 Test Item Value Reference Range Interpretation Comments eGFR (test code = eGFR) 33 [place] [address]4040-12-06 04:34:00 Test Item Value Reference Range Interpretation Comments WBC X 10x3 (test code = WBC X 10x3) 9.7 3.7-10.4 [place] [address]4040-12-06 04:34:00 Test Item Value Reference Range Interpretation Comments RBC X 10x6 (test code = RBC X 10x6) 3.96 4.20-5.40 [place] [address]4040-12-06 04:34:00 Test Item Value Reference Range Interpretation Comments Hgb (test code = Hgb) 10.6 12.0-16.0 [place] [address]-12-06 04:34:00 Test Item Value Reference Range Interpretation Comments Hct (test code = Hct) 32.6 36.0-48.0 [place] [address]4040-12-06 04:34:00 Test Item Value Reference Range Interpretation Comments MCV (test code = MCV) 82.3 80.0-98.0 [place] [address]-12-06 04:34:00 Test Item Value Reference Range Interpretation Comments MCH (test code = MCH) 26.6 pg 27.0-31.0 [place] [address]-12-06 04:34:00 Test Item Value Reference Range Interpretation Comments MCHC (test code = MCHC) 32.4 32.0-36.0 [place] [address]-12-06 04:34:00 Test Item Value Reference Range Interpretation Comments RDW (test code = RDW) 16.8 11.5-14.5 [place] [address]-12-06 04:34:00 Test Item Value Reference Range Interpretation Comments Platelet (test code = Platelet) 178 133-450 [place] [address]-12-06 04:34:00 Test Item Value Reference Range Interpretation Comments MPV (test code = MPV) 8.0 7.4-10.4 [place] [address]-12-06 04:34:00 Test Item Value Reference Range Interpretation Comments PT (test code = PT) 14.7 s 12.0-14.7 [place] [address]-12-06 04:34:00 Test Item Value Reference Range Interpretation Comments INR (test code = INR) 1.14 1 0.85-1.[address]12-06 04:34:00 Test Item Value Reference Range Interpretation Comments PTT (test code = PTT) 31.2 s 22.9-35.8 [place] [address]-12-06 04:34:00 Test Item Value Reference Range Interpretation Comments Segs (test code = Segs) 73.9 45.0-75.0 [place] [address]-12-06 04:34:00 Test Item Value Reference Range Interpretation Comments Lymphocytes (test code = Lymphocytes) 11.0 20.0-40.0 [place] [address]-12-06 04:34:00 Test Item Value Reference Range Interpretation Comments Monocytes (test code = Monocytes) 13.6 2.0-12.0 [place] [address]-12-06 04:34:00 Test Item Value Reference Range Interpretation Comments Eosinophils (test code = 0.7 See_Comment [A utomated message] The Eosinophils) system which ge nerated this result tra nsmitted reference range : <=4.0. The reference r christiano was not used to int erpret this result as normal/abnormal . [place] [address]-12-06 04:34:00 Test Item Value Reference Range Interpretation Comments Basophils (test code = 0.8 See_Comment [Aut omated message] The Basophils) system which ge nerated this result tra nsmitted reference range : <=1.0. The reference r christiano was not used to int erpret this result as normal/abnormal . [facility] HospitalMmofdjiZNUNCYUKQH1889-95-10 04:34:00 Test Item Value Reference Range Interpretation Comments Neutrophils # (test code = Neutrophils 7.2 1.5-8.1 #) [facility] HospitalMwienpgGDMHJGDKBT1643-82-28 04:34:00 Test Item Value Reference Range Interpretation Comments Lymphocytes # (test code = Lymphocytes 1.1 1.0-5.5 #) [place]4040-12-06 04:34:00 Test Item Value Reference Range Interpretation Comments Monocytes # (test code 1.3 See_Comment [Aut omated message] The = Monocytes #) system which generated this result tra nsmitted reference range : <=0.8. The reference r christiano was not used to int erpret this result as normal/abnormal . [facility] HospitalPifgnlhWUYCEXJAHY2830-81-95 04:34:00 Test Item Value Reference Range Interpretation Comments Eosinophils # (test code 0.1 See_Comment [A utomated message] The = Eosinophils #) system whic h generated this result tra nsmitted reference range : <=0.5. The reference r christiano was not used to int erpret this result as normal/abnormal . [facility] HospitalOyzwychKIVPOFVKUH5177-91-45 04:34:00 Test Item Value Reference Range Interpretation Comments Basophils # (test code 0.1 See_Comment [Aut omated message] The = Basophils #) system which generated this result tra nsmitted reference range : <=0.2. The reference r christiano was not used to int erpret this result as normal/abnormal . [facility]ARD[facility] [id number] 04:34:00 Test Item Value Reference Range Interpretation Comments Troponin-I (test code no gt See_Comment [Auto mated message] The = Troponin-I) system which g enerated this result transmit sheba reference range : <=0.40. The reference r christiano was not used to interpr et this result as edy l/abnormal. [facility]Pay[facility] [id number] 04:34:00 Test Item Value Reference Range Interpretation Comments Glucose Lvl (test code = Glucose Lvl) 125 70-99 [facility] [id number] 04:34:00 Test Item Value Reference Range Interpretation Comments BUN (test code = BUN) 17 7-22 [place] 570320-12-06 04:34:00 Test Item Value Reference Range Interpretation Comments Creatinine Lvl (test code = Creatinine 1.51 0.50-1.40 Lvl) [place] [address]-12-06 04:34:00 Test Item Value Reference Range Interpretation Comments Sodium Lvl (test code = Sodium Lvl) 142 135-145 [place] 570[address]-12-06 04:34:00 Test Item Value Reference Range Interpretation Comments Potassium Lvl (test code = Potassium 4.0 3.5-5.1 Lvl) [place] [address]-12-06 04:34:00 Test Item Value Reference Range Interpretation Comments Chloride Lvl (test code = Chloride Lvl) 108 95-109 [place] 570[address]-12-06 04:34:00 Test Item Value Reference Range Interpretation Comments CO2 (test code = CO2) 30 24-32 [place] 570[address]-12-06 04:34:00 Test Item Value Reference Range Interpretation Comments Calcium Lvl (test code = Calcium Lvl) 7.8 8.5-10.5 [place] [address]320-12-06 04:34:00 Test Item Value Reference Range Interpretation Comments AGAP (test code = AGAP) 8.0 10.0-20.0 [place] 570320-12-06 04:34:00 Test Item Value Reference Range Interpretation Comments eGFR (test code = eGFR) 33 [place] [address]-12-06 04:34:00 Test Item Value Reference Range Interpretation Comments WBC X 10x3 (test code = WBC X 10x3) 9.7 3.7-10.4 [place] [address]4040-12-06 04:34:00 Test Item Value Reference Range Interpretation Comments RBC X 10x6 (test code = RBC X 10x6) 3.96 4.20-5.40 [place]4040-12-06 04:34:00 Test Item Value Reference Range Interpretation Comments Hgb (test code = Hgb) 10.6 12.0-16.0 [place] [address]-12-06 04:34:00 Test Item Value Reference Range Interpretation Comments Hct (test code = Hct) 32.6 36.0-48.[address]12-06 04:34:00 Test Item Value Reference Range Interpretation Comments MCV (test code = MCV) 82.3 80.0-98.0 [place]4040-12-06 04:34:00 Test Item Value Reference Range Interpretation Comments MCH (test code = MCH) 26.6 pg 27.0-31.0 [place]4040-12-06 04:34:00 Test Item Value Reference Range Interpretation Comments MCHC (test code = MCHC) 32.4 32.0-36.0 [place] 744040-12-06 04:34:00 Test Item Value Reference Range Interpretation Comments RDW (test code = RDW) 16.8 11.5-14.5 [place]4040-12-06 04:34:00 Test Item Value Reference Range Interpretation Comments Platelet (test code = Platelet) 178 133-450 [facility] HospitalIqphmwxGVULAZCSYD4428-75-12 04:34:00 Test Item Value Reference Range Interpretation Comments MPV (test code = MPV) 8.0 7.4-10.4 [place] 744040-12-06 04:34:00 Test Item Value Reference Range Interpretation Comments PT (test code = PT) 14.7 s 12.0-14.7 [place]4040-12-06 04:34:00 Test Item Value Reference Range Interpretation Comments INR (test code = INR) 1.14 1 0.85-1.17 [place] 744040-12-06 04:34:00 Test Item Value Reference Range Interpretation Comments PTT (test code = PTT) 31.2 s 22.9-35.8 [place]4040-12-06 04:34:00 Test Item Value Reference Range Interpretation Comments Segs (test code = Segs) 73.9 45.0-75.0 [place] [address]-12-06 04:34:00 Test Item Value Reference Range Interpretation Comments Lymphocytes (test code = Lymphocytes) 11.0 20.0-40.0 [place] [address]-12-06 04:34:00 Test Item Value Reference Range Interpretation Comments Monocytes (test code = Monocytes) 13.6 2.0-12.0 [place] [address]-12-06 04:34:00 Test Item Value Reference Range Interpretation Comments Eosinophils (test code = 0.7 See_Comment [A utomated message] The Eosinophils) system which ge nerated this result tra nsmitted reference range : <=4.0. The reference r christiano was not used to int erpret this result as normal/abnormal . [facility] HospitalVpwaaxxKBOJOPVLVL7230-18-31 04:34:00 Test Item Value Reference Range Interpretation Comments Basophils (test code = 0.8 See_Comment [Aut omated message] The Basophils) system which ge nerated this result tra nsmitted reference range : <=1.0. The reference r christiano was not used to int erpret this result as normal/abnormal . [facility] HospitalAcmnleaGWACVFFMUS9550-85-27 04:34:00 Test Item Value Reference Range Interpretation Comments Neutrophils # (test code = Neutrophils 7.2 1.5-8.1 #) [facility] HospitalZsuxngaKCDUILUORX2577-57-72 04:34:00 Test Item Value Reference Range Interpretation Comments Lymphocytes # (test code = Lymphocytes 1.1 1.0-5.5 #) [facility] HospitalUcakaxfGPEKOGBHCW7173-67-20 04:34:00 Test Item Value Reference Range Interpretation Comments Monocytes # (test code 1.3 See_Comment [Aut omated message] The = Monocytes #) system which generated this result tra nsmitted reference range : <=0.8. The reference r christiano was not used to int erpret this result as normal/abnormal . [facility] HospitalUffhtovCRGSIHNKKD3462-59-44 04:34:00 Test Item Value Reference Range Interpretation Comments Eosinophils # (test code 0.1 See_Comment [A utomated message] The = Eosinophils #) system whic h generated this result tra nsmitted reference range : <=0.5. The reference r christiano was not used to int erpret this result as normal/abnormal . [facility] HospitalOoyibnpICHJEWANCV5172-76-26 04:34:00 Test Item Value Reference Range Interpretation Comments Basophils # (test code 0.1 See_Comment [Aut omated message] The = Basophils #) system which generated this result tra nsmitted reference range : <=0.2. The reference r christiano was not used to int erpret this result as normal/abnormal . [facility] [id number] 04:34:00 Test Item Value Reference Range Interpretation Comments Troponin-I (test code no gt See_Comment [Auto mated message] The = Troponin-I) system which g enerated this result transmit sheba reference range : <=0.40. The reference r christiano was not used to interpr et this result as edy l/abnormal. [place] [address]320-12-06 04:34:00 Test Item Value Reference Range Interpretation Comments Glucose Lvl (test code = Glucose Lvl) 125 70-99 [place] 570320-12-06 04:34:00 Test Item Value Reference Range Interpretation Comments BUN (test code = BUN) 17 7-22 [place] 570320-12-06 04:34:00 Test Item Value Reference Range Interpretation Comments Creatinine Lvl (test code = Creatinine 1.51 0.50-1.40 Lvl) [facility]2020-12-06 04:34:00 Test Item Value Reference Range Interpretation Comments Sodium Lvl (test code = Sodium Lvl) 142 135-145 [place] 570320-12-06 04:34:00 Test Item Value Reference Range Interpretation Comments Potassium Lvl (test code = Potassium 4.0 3.5-5.1 Lvl) [facility]2020-12-06 04:34:00 Test Item Value Reference Range Interpretation Comments Chloride Lvl (test code = Chloride Lvl) 108 95-109 [facility]2020-12-06 04:34:00 Test Item Value Reference Range Interpretation Comments CO2 (test code = CO2) 30 24-32 [place] 570320-12-06 04:34:00 Test Item Value Reference Range Interpretation Comments Calcium Lvl (test code = Calcium Lvl) 7.8 8.5-10.5 [place] 570320-12-06 04:34:00 Test Item Value Reference Range Interpretation Comments AGAP (test code = AGAP) 8.0 10.0-20.0 [place] 570320-12-06 04:34:00 Test Item Value Reference Range Interpretation Comments eGFR (test code = eGFR) 33 [place] 744040-12-06 04:34:00 Test Item Value Reference Range Interpretation Comments WBC X 10x3 (test code = WBC X 10x3) 9.7 3.7-10.4 [place] 744040-12-06 04:34:00 Test Item Value Reference Range Interpretation Comments RBC X 10x6 (test code = RBC X 10x6) 3.96 4.20-5.40 [place] [address]-12-06 04:34:00 Test Item Value Reference Range Interpretation Comments Hgb (test code = Hgb) 10.6 12.0-16.0 [place] [address]-12-06 04:34:00 Test Item Value Reference Range Interpretation Comments Hct (test code = Hct) 32.6 36.0-48.0 [place] [address]-12-06 04:34:00 Test Item Value Reference Range Interpretation Comments MCV (test code = MCV) 82.3 80.0-98.0 [place] [address]-12-06 04:34:00 Test Item Value Reference Range Interpretation Comments MCH (test code = MCH) 26.6 pg 27.0-31.0 [place] [address]-12-06 04:34:00 Test Item Value Reference Range Interpretation Comments MCHC (test code = MCHC) 32.4 32.0-36.0 [place] [address]-12-06 04:34:00 Test Item Value Reference Range Interpretation Comments RDW (test code = RDW) 16.8 11.5-14.5 [place] [address]-12-06 04:34:00 Test Item Value Reference Range Interpretation Comments Platelet (test code = Platelet) 178 133-450 [facility]WXOAZO2981[facility] 04:34:00 Test Item Value Reference Range Interpretation Comments MPV (test code = MPV) 8.0 7.4-10.4 [place] [address]-12-06 04:34:00 Test Item Value Reference Range Interpretation Comments PT (test code = PT) 14.7 s 12.0-14.7 [place] [address]-12-06 04:34:00 Test Item Value Reference Range Interpretation Comments INR (test code = INR) 1.14 1 0.85-1.17 [place] [address]-12-06 04:34:00 Test Item Value Reference Range Interpretation Comments PTT (test code = PTT) 31.2 s 22.9-35.8 [place] [address]-12-06 04:34:00 Test Item Value Reference Range Interpretation Comments Segs (test code = Segs) 73.9 45.0-75.0 [place] 744040-12-06 04:34:00 Test Item Value Reference Range Interpretation Comments Lymphocytes (test code = Lymphocytes) 11.0 20.0-40.0 [place] [address]-12-06 04:34:00 Test Item Value Reference Range Interpretation Comments Monocytes (test code = Monocytes) 13.6 2.0-12.0 [place] [address]-12-06 04:34:00 Test Item Value Reference Range Interpretation Comments Eosinophils (test code = 0.7 See_Comment [A utomated message] The Eosinophils) system which ge nerated this result tra nsmitted reference range : <=4.0. The reference r christiano was not used to int erpret this result as normal/abnormal . [place] [address]-12-06 04:34:00 Test Item Value Reference Range Interpretation Comments Basophils (test code = 0.8 See_Comment [Aut omated message] The Basophils) system which ge nerated this result tra nsmitted reference range : <=1.0. The reference r christiano was not used to int erpret this result as normal/abnormal . [place] 744040-12-06 04:34:00 Test Item Value Reference Range Interpretation Comments Neutrophils # (test code = Neutrophils 7.2 1.5-8.1 #) [place] [address]-12-06 04:34:00 Test Item Value Reference Range Interpretation Comments Lymphocytes # (test code = Lymphocytes 1.1 1.0-5.5 #) [place] [address]-12-06 04:34:00 Test Item Value Reference Range Interpretation Comments Monocytes # (test code 1.3 See_Comment [Aut omated message] The = Monocytes #) system which generated this result tra nsmitted reference range : <=0.8. The reference r christiano was not used to int erpret this result as normal/abnormal . [place] [address]-12-06 04:34:00 Test Item Value Reference Range Interpretation Comments Eosinophils # (test code 0.1 See_Comment [A utomated message] The = Eosinophils #) system wh h generated this result tra nsmitted reference range : <=0.5. The reference r christiano was not used to int erpret this result as normal/abnormal . [facility]udaE[id number] 04:34:00 Test Item Value Reference Range Interpretation Comments Basophils # (test code 0.1 See_Comment [Aut omated message] The = Basophils #) system which generated this result tra nsmitted reference range : <=0.2. The reference r christiano was not used to int erpret this result as normal/abnormal . [facility]uda[facility]ARDI[facility] [id number] 04:34:00 Test Item Value Reference Range Interpretation Comments Troponin-I (test code no gt See_Comment [Auto mated message] The = Troponin-I) system which g enerated this result transmit sheba reference range : <=0.40. The reference r christiano was not used to interpr et this result as edy l/abnormal. [facility] [employer] [id number] 04:34:00 Test Item Value Reference Range Interpretation Comments Glucose Lvl (test code = Glucose Lvl) 125 70-99 [facility] [employer] [id number] 04:34:00 Test Item Value Reference Range Interpretation Comments BUN (test code = BUN) 17 7-22 [facility] [id number] 04:34:00 Test Item Value Reference Range Interpretation Comments Creatinine Lvl (test code = Creatinine 1.51 0.50-1.40 Lvl) [facility] [id number] 04:34:00 Test Item Value Reference Range Interpretation Comments Sodium Lvl (test code = Sodium Lvl) 142 135-145 [facility] [employer] [id number] 04:34:00 Test Item Value Reference Range Interpretation Comments Potassium Lvl (test code = Potassium 4.0 3.5-5.1 Lvl) [facility] [id number] 04:34:00 Test Item Value Reference Range Interpretation Comments Chloride Lvl (test code = Chloride Lvl) 108 95-109 [facility] [employer] [id number] 04:34:00 Test Item Value Reference Range Interpretation Comments CO2 (test code = CO2) 30 24-32 [facility] [id number] 04:34:00 Test Item Value Reference Range Interpretation Comments Calcium Lvl (test code = Calcium Lvl) 7.8 8.5-10.5 [facility]2020-12-06 04:34:00 Test Item Value Reference Range Interpretation Comments AGAP (test code = AGAP) 8.0 10.0-20.0 [facility]2020-12-06 04:34:00 Test Item Value Reference Range Interpretation Comments eGFR (test code = eGFR) 33 [facility] HospitalGpeheppCTNMBAOWVI8055-97-24 04:34:00 Test Item Value Reference Range Interpretation Comments WBC X 10x3 (test code = WBC X 10x3) 9.7 3.7-10.4 [facility] HospitalDflnkdeKWJDVDDGRA0425-26-42 04:34:00 Test Item Value Reference Range Interpretation Comments RBC X 10x6 (test code = RBC X 10x6) 3.96 4.20-5.40 [place] 744040-12-06 04:34:00 Test Item Value Reference Range Interpretation Comments Hgb (test code = Hgb) 10.6 12.0-16.0 [place] [address]-12-06 04:34:00 Test Item Value Reference Range Interpretation Comments Hct (test code = Hct) 32.6 36.0-48.0 [place] [address]-12-06 04:34:00 Test Item Value Reference Range Interpretation Comments MCV (test code = MCV) 82.3 80.0-98.0 [place] 744040-12-06 04:34:00 Test Item Value Reference Range Interpretation Comments MCH (test code = MCH) 26.6 pg 27.0-31.0 [place] 744040-12-06 04:34:00 Test Item Value Reference Range Interpretation Comments MCHC (test code = MCHC) 32.4 32.0-36.0 [place] 744040-12-06 04:34:00 Test Item Value Reference Range Interpretation Comments RDW (test code = RDW) 16.8 11.5-14.5 [place] 744040-12-06 04:34:00 Test Item Value Reference Range Interpretation Comments Platelet (test code = Platelet) 178 133-450 [facility] HospitalBypcxtrBDAVIPBTLD8404-49-60 04:34:00 Test Item Value Reference Range Interpretation Comments MPV (test code = MPV) 8.0 7.4-10.4 [place] 744040-12-06 04:34:00 Test Item Value Reference Range Interpretation Comments PT (test code = PT) 14.7 s 12.0-14.7 [place] 744040-12-06 04:34:00 Test Item Value Reference Range Interpretation Comments INR (test code = INR) 1.14 1 0.85-1.17 [place] 744040-12-06 04:34:00 Test Item Value Reference Range Interpretation Comments PTT (test code = PTT) 31.2 s 22.9-35.8 [place] 744040-12-06 04:34:00 Test Item Value Reference Range Interpretation Comments Segs (test code = Segs) 73.9 45.0-75.0 [place] 744040-12-06 04:34:00 Test Item Value Reference Range Interpretation Comments Lymphocytes (test code = Lymphocytes) 11.0 20.0-40.0 [place] 744040-12-06 04:34:00 Test Item Value Reference Range Interpretation Comments Monocytes (test code = Monocytes) 13.6 2.0-12.0 [place] 744040-12-06 04:34:00 Test Item Value Reference Range Interpretation Comments Eosinophils (test code = 0.7 See_Comment [A utomated message] The Eosinophils) system which ge nerated this result tra nsmitted reference range : <=4.0. The reference r christiano was not used to int erpret this result as normal/abnormal . [place] 744040-12-06 04:34:00 Test Item Value Reference Range Interpretation Comments Basophils (test code = 0.8 See_Comment [Aut omated message] The Basophils) system which ge nerated this result tra nsmitted reference range : <=1.0. The reference r christiano was not used to int erpret this result as normal/abnormal . [place] 744040-12-06 04:34:00 Test Item Value Reference Range Interpretation Comments Neutrophils # (test code = Neutrophils 7.2 1.5-8.1 #) [place] 744040-12-06 04:34:00 Test Item Value Reference Range Interpretation Comments Lymphocytes # (test code = Lymphocytes 1.1 1.0-5.5 #) [place] [address]-12-06 04:34:00 Test Item Value Reference Range Interpretation Comments Monocytes # (test code 1.3 See_Comment [Aut omated message] The = Monocytes #) system which generated this result tra nsmitted reference range : <=0.8. The reference r christiano was not used to int erpret this result as normal/abnormal . [facility] [id number] 04:34:00 Test Item Value Reference Range Interpretation Comments Eosinophils # (test code 0.1 See_Comment [A utomated message] The = Eosinophils #) system whic h generated this result tra nsmitted reference range : <=0.5. The reference r christiano was not used to int erpret this result as normal/abnormal . [facility] ChildrenGtlilzxPKKDJKAJYZ1313-80-86 04:34:00 Test Item Value Reference Range Interpretation Comments Basophils # (test code 0.1 See_Comment [Aut omated message] The = Basophils #) system which generated this result tra nsmitted reference range : <=0.2. The reference r christiano was not used to int erpret this result as normal/abnormal . [facility]ARD[facility] [id number] 04:34:00 Test Item Value Reference Range Interpretation Comments Troponin-I (test code no gt See_Comment [Auto mated message] The = Troponin-I) system which g enerated this result transmit sheba reference range : <=0.40. The reference r christiano was not used to interpr et this result as edy l/abnormal. [facility] [employer] [id number] 04:34:00 Test Item Value Reference Range Interpretation Comments Glucose Lvl (test code = Glucose Lvl) 125 70-99 [facility] [employer] [id number] 04:34:00 Test Item Value Reference Range Interpretation Comments BUN (test code = BUN) 17 7-22 [facility] [employer] [id number] 04:34:00 Test Item Value Reference Range Interpretation Comments Creatinine Lvl (test code = Creatinine 1.51 0.50-1.40 Lvl) [facility] [employer] [id number] 04:34:00 Test Item Value Reference Range Interpretation Comments Sodium Lvl (test code = Sodium Lvl) 142 135-145 [facility] [employer] [id number] 04:34:00 Test Item Value Reference Range Interpretation Comments Potassium Lvl (test code = Potassium 4.0 3.5-5.1 Lvl) [facility]2020-12-06 04:34:00 Test Item Value Reference Range Interpretation Comments Chloride Lvl (test code = Chloride Lvl) 108 95-109 [place] 570320-12-06 04:34:00 Test Item Value Reference Range Interpretation Comments CO2 (test code = CO2) 30 24-32 [place] [address]-12-06 04:34:00 Test Item Value Reference Range Interpretation Comments Calcium Lvl (test code = Calcium Lvl) 7.8 8.5-10.5 [place] 570320-12-06 04:34:00 Test Item Value Reference Range Interpretation Comments AGAP (test code = AGAP) 8.0 10.0-20.0 [place] 570320-12-06 04:34:00 Test Item Value Reference Range Interpretation Comments eGFR (test code = eGFR) 33 [place] 744040-12-06 04:34:00 Test Item Value Reference Range Interpretation Comments WBC X 10x3 (test code = WBC X 10x3) 9.7 3.7-10.4 [place] [address]-12-06 04:34:00 Test Item Value Reference Range Interpretation Comments RBC X 10x6 (test code = RBC X 10x6) 3.96 4.20-5.40 [place] 744040-12-06 04:34:00 Test Item Value Reference Range Interpretation Comments Hgb (test code = Hgb) 10.6 12.0-16.0 [place] 744040-12-06 04:34:00 Test Item Value Reference Range Interpretation Comments Hct (test code = Hct) 32.6 36.0-48.0 [place] [address]-12-06 04:34:00 Test Item Value Reference Range Interpretation Comments MCV (test code = MCV) 82.3 80.0-98.0 [place] [address]-12-06 04:34:00 Test Item Value Reference Range Interpretation Comments MCH (test code = MCH) 26.6 pg 27.0-31.0 [place] 744040-12-06 04:34:00 Test Item Value Reference Range Interpretation Comments MCHC (test code = MCHC) 32.4 32.0-36.0 [address]12-06 04:34:00 Test Item Value Reference Range Interpretation Comments RDW (test code = RDW) 16.8 11.5-14.5 [place] [address]-12-06 04:34:00 Test Item Value Reference Range Interpretation Comments Platelet (test code = Platelet) 178 133-450 [place] [address]-12-06 04:34:00 Test Item Value Reference Range Interpretation Comments MPV (test code = MPV) 8.0 7.4-10.4 [place] [address]-12-06 04:34:00 Test Item Value Reference Range Interpretation Comments PT (test code = PT) 14.7 s 12.0-14.7 [place] [address]-12-06 04:34:00 Test Item Value Reference Range Interpretation Comments INR (test code = INR) 1.14 1 0.85-1.17 [place] [address]-12-06 04:34:00 Test Item Value Reference Range Interpretation Comments PTT (test code = PTT) 31.2 s 22.9-35.8 [place] [address]-12-06 04:34:00 Test Item Value Reference Range Interpretation Comments Segs (test code = Segs) 73.9 45.0-75.0 [place] [address]-12-06 04:34:00 Test Item Value Reference Range Interpretation Comments Lymphocytes (test code = Lymphocytes) 11.0 20.0-40.0 [place] [address]-12-06 04:34:00 Test Item Value Reference Range Interpretation Comments Monocytes (test code = Monocytes) 13.6 2.0-12.0 [place] [address]-12-06 04:34:00 Test Item Value Reference Range Interpretation Comments Eosinophils (test code = 0.7 See_Comment [A utomated message] The Eosinophils) system which ge nerated this result tra nsmitted reference range : <=4.0. The reference r christiano was not used to int erpret this result as normal/abnormal . [place] [address]-12-06 04:34:00 Test Item Value Reference Range Interpretation Comments Basophils (test code = 0.8 See_Comment [Aut omated message] The Basophils) system which ge nerated this result tra nsmitted reference range : <=1.0. The reference r christiano was not used to int erpret this result as normal/abnormal . [facility]udaLftzerdOKZFVOJCMI6186-82-00 04:34:00 Test Item Value Reference Range Interpretation Comments Neutrophils # (test code = Neutrophils 7.2 1.5-8.1 #) [facility]SOQLCXOGCM3161-19-60 04:34:00 Test Item Value Reference Range Interpretation Comments Lymphocytes # (test code = Lymphocytes 1.1 1.0-5.5 #) [place] 744040-12-06 04:34:00 Test Item Value Reference Range Interpretation Comments Monocytes # (test code 1.3 See_Comment [Aut omated message] The = Monocytes #) system which generated this result tra nsmitted reference range : <=0.8. The reference r christiano was not used to int erpret this result as normal/abnormal . [facility] HospitalFihgptbVJRQQXLEUX2717-69-21 04:34:00 Test Item Value Reference Range Interpretation Comments Eosinophils # (test code 0.1 See_Comment [A utomated message] The = Eosinophils #) system whic h generated this result tra nsmitted reference range : <=0.5. The reference r christiano was not used to int erpret this result as normal/abnormal . [facility] HospitalLplxbisYXOTGAIJMZ6435-79-65 04:34:00 Test Item Value Reference Range Interpretation Comments Basophils # (test code 0.1 See_Comment [Aut omated message] The = Basophils #) system which generated this result tra nsmitted reference range : <=0.2. The reference r christiano was not used to int erpret this result as normal/abnormal . [facility] [id number] 04:34:00 Test Item Value Reference Range Interpretation Comments Troponin-I (test code no gt See_Comment [Auto mated message] The = Troponin-I) system which g enerated this result transmit sheba reference range : <=0.40. The reference r christiano was not used to interpr et this result as edy l/abnormal. [facility]Pay[facility] [id number] 04:34:00 Test Item Value Reference Range Interpretation Comments Glucose Lvl (test code = Glucose Lvl) 125 70-99 [facility] [id number] 04:34:00 Test Item Value Reference Range Interpretation Comments BUN (test code = BUN) 17 7-22 [facility]2020-12-06 04:34:00 Test Item Value Reference Range Interpretation Comments Creatinine Lvl (test code = Creatinine 1.51 0.50-1.40 Lvl) [facility]2020-12-06 04:34:00 Test Item Value Reference Range Interpretation Comments Sodium Lvl (test code = Sodium Lvl) 142 135-145 [place] 570320-12-06 04:34:00 Test Item Value Reference Range Interpretation Comments Potassium Lvl (test code = Potassium 4.0 3.5-5.1 Lvl) [facility]2020-12-06 04:34:00 Test Item Value Reference Range Interpretation Comments Chloride Lvl (test code = Chloride Lvl) 108 95-109 [facility]2020-12-06 04:34:00 Test Item Value Reference Range Interpretation Comments CO2 (test code = CO2) 30 24-32 [place] 570320-12-06 04:34:00 Test Item Value Reference Range Interpretation Comments Calcium Lvl (test code = Calcium Lvl) 7.8 8.5-10.5 [facility]2020-12-06 04:34:00 Test Item Value Reference Range Interpretation Comments AGAP (test code = AGAP) 8.0 10.0-20.0 [facility]2020-12-06 04:34:00 Test Item Value Reference Range Interpretation Comments eGFR (test code = eGFR) 33 [facility] HospitalRrbpdlrXFGCZHXIBR5004-76-08 04:34:00 Test Item Value Reference Range Interpretation Comments WBC X 10x3 (test code = WBC X 10x3) 9.7 3.7-10.4 [place] 744040-12-06 04:34:00 Test Item Value Reference Range Interpretation Comments RBC X 10x6 (test code = RBC X 10x6) 3.96 4.20-5.40 [place] 744040-12-06 04:34:00 Test Item Value Reference Range Interpretation Comments Hgb (test code = Hgb) 10.6 12.0-16.0 [place] [address]-12-06 04:34:00 Test Item Value Reference Range Interpretation Comments Hct (test code = Hct) 32.6 36.0-48.0 [place] 744040-12-06 04:34:00 Test Item Value Reference Range Interpretation Comments MCV (test code = MCV) 82.3 80.0-98.0 [place] 744040-12-06 04:34:00 Test Item Value Reference Range Interpretation Comments MCH (test code = MCH) 26.6 pg 27.0-31.0 [place] 744040-12-06 04:34:00 Test Item Value Reference Range Interpretation Comments MCHC (test code = MCHC) 32.4 32.0-36.0 [place] [address]-12-06 04:34:00 Test Item Value Reference Range Interpretation Comments RDW (test code = RDW) 16.8 11.5-14.5 [place] 744040-12-06 04:34:00 Test Item Value Reference Range Interpretation Comments Platelet (test code = Platelet) 178 133-450 [facility] HospitalEnpzpbyRTWTEQKYSM1405-07-59 04:34:00 Test Item Value Reference Range Interpretation Comments MPV (test code = MPV) 8.0 7.4-10.4 [place] 744040-12-06 04:34:00 Test Item Value Reference Range Interpretation Comments PT (test code = PT) 14.7 s 12.0-14.7 [place] [address]-12-06 04:34:00 Test Item Value Reference Range Interpretation Comments INR (test code = INR) 1.14 1 0.85-1.17 [place] [address]-12-06 04:34:00 Test Item Value Reference Range Interpretation Comments PTT (test code = PTT) 31.2 s 22.9-35.8 [place] [address]-12-06 04:34:00 Test Item Value Reference Range Interpretation Comments Segs (test code = Segs) 73.9 45.0-75.0 [place] [address]-12-06 04:34:00 Test Item Value Reference Range Interpretation Comments Lymphocytes (test code = Lymphocytes) 11.0 20.0-40.0 [place] [address]-12-06 04:34:00 Test Item Value Reference Range Interpretation Comments Monocytes (test code = Monocytes) 13.6 2.0-12.0 [place] 744040-12-06 04:34:00 Test Item Value Reference Range Interpretation Comments Eosinophils (test code = 0.7 See_Comment [A utomated message] The Eosinophils) system which ge nerated this result tra nsmitted reference range : <=4.0. The reference r christiano was not used to int erpret this result as normal/abnormal . [facility] HospitalKogacioZGOORMGLHW6874-16-56 04:34:00 Test Item Value Reference Range Interpretation Comments Basophils (test code = 0.8 See_Comment [Aut omated message] The Basophils) system which ge nerated this result tra nsmitted reference range : <=1.0. The reference r christiano was not used to int erpret this result as normal/abnormal . [facility] HospitalUrujuqdGAUAJGSEBY6821-66-93 04:34:00 Test Item Value Reference Range Interpretation Comments Neutrophils # (test code = Neutrophils 7.2 1.5-8.1 #) [facility] HospitalFydspaaHDBFKUGCKX1003-89-55 04:34:00 Test Item Value Reference Range Interpretation Comments Lymphocytes # (test code = Lymphocytes 1.1 1.0-5.5 #) [facility] HospitalSavocpvNQPKDADDLF0103-61-72 04:34:00 Test Item Value Reference Range Interpretation Comments Monocytes # (test code 1.3 See_Comment [Aut omated message] The = Monocytes #) system which generated this result tra nsmitted reference range : <=0.8. The reference r christiano was not used to int erpret this result as normal/abnormal . [facility] HospitalQqsiqfpSBVCNTXOMK7845-73-35 04:34:00 Test Item Value Reference Range Interpretation Comments Eosinophils # (test code 0.1 See_Comment [A utomated message] The = Eosinophils #) system whic h generated this result tra nsmitted reference range : <=0.5. The reference r christiano was not used to int erpret this result as normal/abnormal . [facility]wan[facility]piWGBGYWTLFH9072-21-52 04:34:00 Test Item Value Reference Range Interpretation Comments Basophils # (test code 0.1 See_Comment [Aut omated message] The = Basophils #) system which generated this result tra nsmitted reference range : <=0.2. The reference r christiano was not used to int erpret this result as normal/abnormal . [facility] [id number] 04:34:00 Test Item Value Reference Range Interpretation Comments Troponin-I (test code no gt See_Comment [Auto mated message] The = Troponin-I) system which g enerated this result transmit sheba reference range : <=0.40. The reference r christiano was not used to interpr et this result as edy l/abnormal. [place] 570320-12-06 04:34:00 Test Item Value Reference Range Interpretation Comments Glucose Lvl (test code = Glucose Lvl) 125 70-99 [place] 570320-12-06 04:34:00 Test Item Value Reference Range Interpretation Comments BUN (test code = BUN) 17 7-22 [place] [address]-12-06 04:34:00 Test Item Value Reference Range Interpretation Comments Creatinine Lvl (test code = Creatinine 1.51 0.50-1.40 Lvl) [place] 570320-12-06 04:34:00 Test Item Value Reference Range Interpretation Comments Sodium Lvl (test code = Sodium Lvl) 142 135-145 [place] 570320-12-06 04:34:00 Test Item Value Reference Range Interpretation Comments Potassium Lvl (test code = Potassium 4.0 3.5-5.1 Lvl) [facility]2020-12-06 04:34:00 Test Item Value Reference Range Interpretation Comments Chloride Lvl (test code = Chloride Lvl) 108 95-109 [facility]2020-12-06 04:34:00 Test Item Value Reference Range Interpretation Comments CO2 (test code = CO2) 30 24-32 [place] 570320-12-06 04:34:00 Test Item Value Reference Range Interpretation Comments Calcium Lvl (test code = Calcium Lvl) 7.8 8.5-10.5 [place] 570320-12-06 04:34:00 Test Item Value Reference Range Interpretation Comments AGAP (test code = AGAP) 8.0 10.0-20.0 [place] 570320-12-06 04:34:00 Test Item Value Reference Range Interpretation Comments eGFR (test code = eGFR) 33 [place] [address]-12-06 04:34:00 Test Item Value Reference Range Interpretation Comments WBC X 10x3 (test code = WBC X 10x3) 9.7 3.7-10.4 [address]12-06 04:34:00 Test Item Value Reference Range Interpretation Comments RBC X 10x6 (test code = RBC X 10x6) 3.96 4.20-5.40 [place] 744040-12-06 04:34:00 Test Item Value Reference Range Interpretation Comments Hgb (test code = Hgb) 10.6 12.0-16.0 [place] 744040-12-06 04:34:00 Test Item Value Reference Range Interpretation Comments Hct (test code = Hct) 32.6 36.0-48.0 [place] [address]-12-06 04:34:00 Test Item Value Reference Range Interpretation Comments MCV (test code = MCV) 82.3 80.0-98.0 [place] 744040-12-06 04:34:00 Test Item Value Reference Range Interpretation Comments MCH (test code = MCH) 26.6 pg 27.0-31.0 [place] 744040-12-06 04:34:00 Test Item Value Reference Range Interpretation Comments MCHC (test code = MCHC) 32.4 32.0-36.0 [place] [address]-12-06 04:34:00 Test Item Value Reference Range Interpretation Comments RDW (test code = RDW) 16.8 11.5-14.5 [place] [address]-12-06 04:34:00 Test Item Value Reference Range Interpretation Comments Platelet (test code = Platelet) 178 133-450 [facility]QbjnlnxHLYVUIBHYU6859-50-81 04:34:00 Test Item Value Reference Range Interpretation Comments MPV (test code = MPV) 8.0 7.4-10.4 [place] [address]-12-06 04:34:00 Test Item Value Reference Range Interpretation Comments PT (test code = PT) 14.7 s 12.0-14.7 [place] [address]-12-06 04:34:00 Test Item Value Reference Range Interpretation Comments INR (test code = INR) 1.14 1 0.85-1.17 [place] [address]-12-06 04:34:00 Test Item Value Reference Range Interpretation Comments PTT (test code = PTT) 31.2 s 22.9-35.8 [place] [address]-12-06 04:34:00 Test Item Value Reference Range Interpretation Comments Segs (test code = Segs) 73.9 45.0-75.0 [place] 744040-12-06 04:34:00 Test Item Value Reference Range Interpretation Comments Lymphocytes (test code = Lymphocytes) 11.0 20.0-40.0 [place] 744040-12-06 04:34:00 Test Item Value Reference Range Interpretation Comments Monocytes (test code = Monocytes) 13.6 2.0-12.0 [place] [address]-12-06 04:34:00 Test Item Value Reference Range Interpretation Comments Eosinophils (test code = 0.7 See_Comment [A utomated message] The Eosinophils) system which ge nerated this result tra nsmitted reference range : <=4.0. The reference r christiano was not used to int erpret this result as normal/abnormal . [place] 744040-12-06 04:34:00 Test Item Value Reference Range Interpretation Comments Basophils (test code = 0.8 See_Comment [Aut omated message] The Basophils) system which ge nerated this result tra nsmitted reference range : <=1.0. The reference r christiano was not used to int erpret this result as normal/abnormal . [place] 744040-12-06 04:34:00 Test Item Value Reference Range Interpretation Comments Neutrophils # (test code = Neutrophils 7.2 1.5-8.1 #) [place] 744040-12-06 04:34:00 Test Item Value Reference Range Interpretation Comments Lymphocytes # (test code = Lymphocytes 1.1 1.0-5.5 #) [place] [address]-12-06 04:34:00 Test Item Value Reference Range Interpretation Comments Monocytes # (test code 1.3 See_Comment [Aut omated message] The = Monocytes #) system which generated this result tra nsmitted reference range : <=0.8. The reference r christiano was not used to int erpret this result as normal/abnormal . [place] 744040-12-06 04:34:00 Test Item Value Reference Range Interpretation Comments Eosinophils # (test code 0.1 See_Comment [A utomated message] The = Eosinophils #) system whic h generated this result tra nsmitted reference range : <=0.5. The reference r christiano was not used to int erpret this result as normal/abnormal . [id number] 04:34:00 Test Item Value Reference Range Interpretation Comments Basophils # (test code 0.1 See_Comment [Aut omated message] The = Basophils #) system which generated this result tra nsmitted reference range : <=0.2. The reference r christiano was not used to int erpret this result as normal/abnormal . [facility]ARD[facility] [id number] 04:34:00 Test Item Value Reference Range Interpretation Comments Troponin-I (test code no gt See_Comment [Auto mated message] The = Troponin-I) system which g enerated this result transmit sheba reference range : <=0.40. The reference r christiano was not used to interpr et this result as edy l/abnormal. [facility] [id number] 04:34:00 Test Item Value Reference Range Interpretation Comments Glucose Lvl (test code = Glucose Lvl) 125 70-99 [facility] [id number] 04:34:00 Test Item Value Reference Range Interpretation Comments BUN (test code = BUN) 17 7-22 [facility] [id number] 04:34:00 Test Item Value Reference Range Interpretation Comments Creatinine Lvl (test code = Creatinine 1.51 0.50-1.40 Lvl) [facility] [id number] 04:34:00 Test Item Value Reference Range Interpretation Comments Sodium Lvl (test code = Sodium Lvl) 142 135-145 [facility] [id number] 04:34:00 Test Item Value Reference Range Interpretation Comments Potassium Lvl (test code = Potassium 4.0 3.5-5.1 Lvl) [facility] [id number] 04:34:00 Test Item Value Reference Range Interpretation Comments Chloride Lvl (test code = Chloride Lvl) 108 95-109 [facility] [id number] 04:34:00 Test Item Value Reference Range Interpretation Comments CO2 (test code = CO2) 30 24-32 [facility] [id number] 04:34:00 Test Item Value Reference Range Interpretation Comments Calcium Lvl (test code = Calcium Lvl) 7.8 8.5-10.5 [facility]2020-12-06 04:34:00 Test Item Value Reference Range Interpretation Comments AGAP (test code = AGAP) 8.0 10.0-20.0 [facility]2020-12-06 04:34:00 Test Item Value Reference Range Interpretation Comments eGFR (test code = eGFR) 33 [facility] HospitalRrffjyuTJGGQKNNRS1440-39-00 04:34:00 Test Item Value Reference Range Interpretation Comments WBC X 10x3 (test code = WBC X 10x3) 9.7 3.7-10.4 [place] 744040-12-06 04:34:00 Test Item Value Reference Range Interpretation Comments RBC X 10x6 (test code = RBC X 10x6) 3.96 4.20-5.40 [place] 744040-12-06 04:34:00 Test Item Value Reference Range Interpretation Comments Hgb (test code = Hgb) 10.6 12.0-16.0 [place] 744040-12-06 04:34:00 Test Item Value Reference Range Interpretation Comments Hct (test code = Hct) 32.6 36.0-48.0 [facility] HospitalUdcluuwDXBFUAIZQQ2624-21-62 04:34:00 Test Item Value Reference Range Interpretation Comments MCV (test code = MCV) 82.3 80.0-98.0 [facility] HospitalRwvqufvIEVMYFPKFQ7413-09-64 04:34:00 Test Item Value Reference Range Interpretation Comments MCH (test code = MCH) 26.6 pg 27.0-31.0 [facility] HospitalOadertcQZIZUBRGXS1389-60-12 04:34:00 Test Item Value Reference Range Interpretation Comments MCHC (test code = MCHC) 32.4 32.0-36.0 [place] 744040-12-06 04:34:00 Test Item Value Reference Range Interpretation Comments RDW (test code = RDW) 16.8 11.5-14.5 [place] 744040-12-06 04:34:00 Test Item Value Reference Range Interpretation Comments Platelet (test code = Platelet) 178 133-450 [facility] HospitalDepckecRGEDYJDMLB8118-90-88 04:34:00 Test Item Value Reference Range Interpretation Comments MPV (test code = MPV) 8.0 7.4-10.4 [facility] HospitalEffoiboBVBATUKIKI3819-19-81 04:34:00 Test Item Value Reference Range Interpretation Comments PT (test code = PT) 14.7 s 12.0-14.7 [place] 744040-12-06 04:34:00 Test Item Value Reference Range Interpretation Comments INR (test code = INR) 1.14 1 0.85-1.17 [place] [address]-12-06 04:34:00 Test Item Value Reference Range Interpretation Comments PTT (test code = PTT) 31.2 s 22.9-35.8 [place] 744040-12-06 04:34:00 Test Item Value Reference Range Interpretation Comments Segs (test code = Segs) 73.9 45.0-75.0 [place] [address]-12-06 04:34:00 Test Item Value Reference Range Interpretation Comments Lymphocytes (test code = Lymphocytes) 11.0 20.0-40.0 [place] [address]-12-06 04:34:00 Test Item Value Reference Range Interpretation Comments Monocytes (test code = Monocytes) 13.6 2.0-12.0 [place] [address]-12-06 04:34:00 Test Item Value Reference Range Interpretation Comments Eosinophils (test code = 0.7 See_Comment [A utomated message] The Eosinophils) system which ge nerated this result tra nsmitted reference range : <=4.0. The reference r christiano was not used to int erpret this result as normal/abnormal . [facility] HospitalFycwvcoDTXLHMORPF2595-41-56 04:34:00 Test Item Value Reference Range Interpretation Comments Basophils (test code = 0.8 See_Comment [Aut omated message] The Basophils) system which ge nerated this result tra nsmitted reference range : <=1.0. The reference r christiano was not used to int erpret this result as normal/abnormal . [place] [address]-12-06 04:34:00 Test Item Value Reference Range Interpretation Comments Neutrophils # (test code = Neutrophils 7.2 1.5-8.1 #) [place] [address]-12-06 04:34:00 Test Item Value Reference Range Interpretation Comments Lymphocytes # (test code = Lymphocytes 1.1 1.0-5.5 #) [place] [address]-12-06 04:34:00 Test Item Value Reference Range Interpretation Comments Monocytes # (test code 1.3 See_Comment [Aut omated message] The = Monocytes #) system which generated this result tra nsmitted reference range : <=0.8. The reference r christiano was not used to int erpret this result as normal/abnormal . [facility] ChildrenRoboEdCARDIAC [id number] 04:34:00 Test Item Value Reference Range Interpretation Comments Troponin-I (test code no gt See_Comment [Auto mated message] The = Troponin-I) system which g enerated this result transmit sheba reference range : <=0.40. The reference r christiano was not used to interpr et this result as edy l/abnormal. [facility] C[id number] 04:34:00 Test Item Value Reference Range Interpretation Comments Eosinophils # (test code 0.1 See_Comment [A utomated message] The = Eosinophils #) system whic h generated this result tra nsmitted reference range : <=0.5. The reference r christiano was not used to int erpret this result as normal/abnormal . [facility] [employer] [id number] 04:34:00 Test Item Value Reference Range Interpretation Comments Glucose Lvl (test code = Glucose Lvl) 125 70-99 [facility] [employer] [id number] 04:34:00 Test Item Value Reference Range Interpretation Comments BUN (test code = BUN) 17 7-22 [facility] [id number] 04:34:00 Test Item Value Reference Range Interpretation Comments Creatinine Lvl (test code = Creatinine 1.51 0.50-1.40 Lvl) [facility] [employer] [id number] 04:34:00 Test Item Value Reference Range Interpretation Comments Sodium Lvl (test code = Sodium Lvl) 142 135-145 [facility] [employer] [id number] 04:34:00 Test Item Value Reference Range Interpretation Comments Potassium Lvl (test code = Potassium 4.0 3.5-5.1 Lvl) [facility] [id number] 04:34:00 Test Item Value Reference Range Interpretation Comments Chloride Lvl (test code = Chloride Lvl) 108 95-109 [facility] [employer] [id number] 04:34:00 Test Item Value Reference Range Interpretation Comments CO2 (test code = CO2) 30 24-32 [facility]2020-12-06 04:34:00 Test Item Value Reference Range Interpretation Comments Calcium Lvl (test code = Calcium Lvl) 7.8 8.5-10.5 [facility]2020-12-06 04:34:00 Test Item Value Reference Range Interpretation Comments AGAP (test code = AGAP) 8.0 10.0-20.0 [facility]udaPay[facility] [id number] 04:34:00 Test Item Value Reference Range Interpretation Comments eGFR (test code = eGFR) 33 [facility] HospitalJrjmgywKTNXPLIYOX2185-22-32 04:34:00 Test Item Value Reference Range Interpretation Comments Basophils # (test code 0.1 See_Comment [Aut omated message] The = Basophils #) system which generated this result tra nsmitted reference range : <=0.2. The reference r christiano was not used to int erpret this result as normal/abnormal . [facility] HospitalFpmrlmrJUGGBVVZCM8123-43-01 04:34:00 Test Item Value Reference Range Interpretation Comments WBC X 10x3 (test code = WBC X 10x3) 9.7 3.7-10.4 [place] 744040-12-06 04:34:00 Test Item Value Reference Range Interpretation Comments RBC X 10x6 (test code = RBC X 10x6) 3.96 4.20-5.40 [facility] HospitalIvneikgEMJILKBZNQ0294-80-35 04:34:00 Test Item Value Reference Range Interpretation Comments Hgb (test code = Hgb) 10.6 12.0-16.0 [place] 744040-12-06 04:34:00 Test Item Value Reference Range Interpretation Comments Hct (test code = Hct) 32.6 36.0-48.0 [place] 744040-12-06 04:34:00 Test Item Value Reference Range Interpretation Comments MCV (test code = MCV) 82.3 80.0-98.0 [place] 744040-12-06 04:34:00 Test Item Value Reference Range Interpretation Comments MCH (test code = MCH) 26.6 pg 27.0-31.0 [place] 744040-12-06 04:34:00 Test Item Value Reference Range Interpretation Comments MCHC (test code = MCHC) 32.4 32.0-36.0 [place] [address]-12-06 04:34:00 Test Item Value Reference Range Interpretation Comments RDW (test code = RDW) 16.8 11.5-14.5 [place] [address]-12-06 04:34:00 Test Item Value Reference Range Interpretation Comments Platelet (test code = Platelet) 178 133-450 [place] [address]-12-06 04:34:00 Test Item Value Reference Range Interpretation Comments MPV (test code = MPV) 8.0 7.4-10.4 [place] [address]-12-06 04:34:00 Test Item Value Reference Range Interpretation Comments PT (test code = PT) 14.7 s 12.0-14.7 [address]12-06 04:34:00 Test Item Value Reference Range Interpretation Comments INR (test code = INR) 1.14 1 0.85-1.[address]12-06 04:34:00 Test Item Value Reference Range Interpretation Comments PTT (test code = PTT) 31.2 s 22.9-35.8 [place] [address]-12-06 04:34:00 Test Item Value Reference Range Interpretation Comments Segs (test code = Segs) 73.9 45.0-75.0 [place] [address]-12-06 04:34:00 Test Item Value Reference Range Interpretation Comments Lymphocytes (test code = Lymphocytes) 11.0 20.0-40.0 [place] [address]-12-06 04:34:00 Test Item Value Reference Range Interpretation Comments Monocytes (test code = Monocytes) 13.6 2.0-12.0 [place] [address]-12-06 04:34:00 Test Item Value Reference Range Interpretation Comments Eosinophils (test code = 0.7 See_Comment [A utomated message] The Eosinophils) system which ge nerated this result tra nsmitted reference range : <=4.0. The reference r christiano was not used to int erpret this result as normal/abnormal . [place] [address]-12-06 04:34:00 Test Item Value Reference Range Interpretation Comments Basophils (test code = 0.8 See_Comment [Aut omated message] The Basophils) system which ge nerated this result tra nsmitted reference range : <=1.0. The reference r christiano was not used to int erpret this result as normal/abnormal . [id number] 04:34:00 Test Item Value Reference Range Interpretation Comments Neutrophils # (test code = Neutrophils 7.2 1.5-8.1 #) [facility]JgvjvgnFBMYXZULZA0586-76-93 04:34:00 Test Item Value Reference Range Interpretation Comments Lymphocytes # (test code = Lymphocytes 1.1 1.0-5.5 #) [facility] HospitalNvayacjDRXQMKPBJA7442-40-03 04:34:00 Test Item Value Reference Range Interpretation Comments Monocytes # (test code 1.3 See_Comment [Aut omated message] The = Monocytes #) system which generated this result tra nsmitted reference range : <=0.8. The reference r christiano was not used to int erpret this result as normal/abnormal . [facility] HospitalIckdotlLYAZIMIJFZ9464-32-55 04:34:00 Test Item Value Reference Range Interpretation Comments Eosinophils # (test code 0.1 See_Comment [A utomated message] The = Eosinophils #) system whic h generated this result tra nsmitted reference range : <=0.5. The reference r christiano was not used to int erpret this result as normal/abnormal . [facility] HospitalAeidfsfTUZUCLEXLW0534-65-04 04:34:00 Test Item Value Reference Range Interpretation Comments Basophils # (test code 0.1 See_Comment [Aut omated message] The = Basophils #) system which generated this result tra nsmitted reference range : <=0.2. The reference r christiano was not used to int erpret this result as normal/abnormal . [facility]ARD[facility] [id number] 04:34:00 Test Item Value Reference Range Interpretation Comments Troponin-I (test code no gt See_Comment [Auto mated message] The = Troponin-I) system which g enerated this result transmit sheba reference range : <=0.40. The reference r christiano was not used to interpr et this result as edy l/abnormal. [facility]udaPay[facility] [id number] 04:34:00 Test Item Value Reference Range Interpretation Comments Glucose Lvl (test code = Glucose Lvl) 125 70-99 [facility]Pay[facility] [id number] 04:34:00 Test Item Value Reference Range Interpretation Comments BUN (test code = BUN) 17 7-22 [place] 570320-12-06 04:34:00 Test Item Value Reference Range Interpretation Comments Creatinine Lvl (test code = Creatinine 1.51 0.50-1.40 Lvl) [place] 570320-12-06 04:34:00 Test Item Value Reference Range Interpretation Comments Sodium Lvl (test code = Sodium Lvl) 142 135-145 [place] 570320-12-06 04:34:00 Test Item Value Reference Range Interpretation Comments Potassium Lvl (test code = Potassium 4.0 3.5-5.1 Lvl) [place] 570320-12-06 04:34:00 Test Item Value Reference Range Interpretation Comments Chloride Lvl (test code = Chloride Lvl) 108 95-109 [place] 570320-12-06 04:34:00 Test Item Value Reference Range Interpretation Comments CO2 (test code = CO2) 30 24-32 [place] 570320-12-06 04:34:00 Test Item Value Reference Range Interpretation Comments Calcium Lvl (test code = Calcium Lvl) 7.8 8.5-10.5 [place] 570320-12-06 04:34:00 Test Item Value Reference Range Interpretation Comments AGAP (test code = AGAP) 8.0 10.0-20.0 [place] 570320-12-06 04:34:00 Test Item Value Reference Range Interpretation Comments eGFR (test code = eGFR) 33 [place] [address]-12-06 04:34:00 Test Item Value Reference Range Interpretation Comments WBC X 10x3 (test code = WBC X 10x3) 9.7 3.7-10.4 [place] [address]-12-06 04:34:00 Test Item Value Reference Range Interpretation Comments RBC X 10x6 (test code = RBC X 10x6) 3.96 4.20-5.40 [place] [address]-12-06 04:34:00 Test Item Value Reference Range Interpretation Comments Hgb (test code = Hgb) 10.6 12.0-16.[address]12-06 04:34:00 Test Item Value Reference Range Interpretation Comments Hct (test code = Hct) 32.6 36.0-48.0 [place] [address]-12-06 04:34:00 Test Item Value Reference Range Interpretation Comments MCV (test code = MCV) 82.3 80.0-98.0 [place] [address]-12-06 04:34:00 Test Item Value Reference Range Interpretation Comments MCH (test code = MCH) 26.6 pg 27.0-31.0 [place] [address]-12-06 04:34:00 Test Item Value Reference Range Interpretation Comments MCHC (test code = MCHC) 32.4 32.0-36.0 [place] [address]-12-06 04:34:00 Test Item Value Reference Range Interpretation Comments RDW (test code = RDW) 16.8 11.5-14.5 [place] [address]-12-06 04:34:00 Test Item Value Reference Range Interpretation Comments Platelet (test code = Platelet) 178 133-450 [place] 744040-12-06 04:34:00 Test Item Value Reference Range Interpretation Comments MPV (test code = MPV) 8.0 7.4-10.4 [place] [address]-12-06 04:34:00 Test Item Value Reference Range Interpretation Comments PT (test code = PT) 14.7 s 12.0-14.7 [place] [address]-12-06 04:34:00 Test Item Value Reference Range Interpretation Comments INR (test code = INR) 1.14 1 0.85-1.17 [place] 744040-12-06 04:34:00 Test Item Value Reference Range Interpretation Comments PTT (test code = PTT) 31.2 s 22.9-35.8 [place] [address]-12-06 04:34:00 Test Item Value Reference Range Interpretation Comments Segs (test code = Segs) 73.9 45.0-75.0 [place] [address]-12-06 04:34:00 Test Item Value Reference Range Interpretation Comments Lymphocytes (test code = Lymphocytes) 11.0 20.0-40.0 [place] [address]-12-06 04:34:00 Test Item Value Reference Range Interpretation Comments Monocytes (test code = Monocytes) 13.6 2.0-12.0 [place] [address]-12-06 04:34:00 Test Item Value Reference Range Interpretation Comments Eosinophils (test code = 0.7 See_Comment [A utomated message] The Eosinophils) system which ge nerated this result tra nsmitted reference range : <=4.0. The reference r christiano was not used to int erpret this result as normal/abnormal . [facility] HospitalEfrdqbbYSINVOAHSD6918-06-89 04:34:00 Test Item Value Reference Range Interpretation Comments Basophils (test code = 0.8 See_Comment [Aut omated message] The Basophils) system which ge nerated this result tra nsmitted reference range : <=1.0. The reference r christiano was not used to int erpret this result as normal/abnormal . [facility] HospitalSexjcojKLASROKWHA0035-65-84 04:34:00 Test Item Value Reference Range Interpretation Comments Neutrophils # (test code = Neutrophils 7.2 1.5-8.1 #) [facility]dudfbxUSZPZNDHOO3439-65-14 04:34:00 Test Item Value Reference Range Interpretation Comments Lymphocytes # (test code = Lymphocytes 1.1 1.0-5.5 #) [facility] HospitalJzbawojUJJMXGGNPQ8174-53-61 04:34:00 Test Item Value Reference Range Interpretation Comments Monocytes # (test code 1.3 See_Comment [Aut omated message] The = Monocytes #) system which generated this result tra nsmitted reference range : <=0.8. The reference r christiano was not used to int erpret this result as normal/abnormal . [facility] HospitalPlkcyswHOYTRAYSUB1742-03-53 04:34:00 Test Item Value Reference Range Interpretation Comments Eosinophils # (test code 0.1 See_Comment [A utomated message] The = Eosinophils #) system whic h generated this result tra nsmitted reference range : <=0.5. The reference r christiano was not used to int erpret this result as normal/abnormal . [facility] HospitalXqukcmaQRMNRMWQYN8109-23-17 04:34:00 Test Item Value Reference Range Interpretation Comments Basophils # (test code 0.1 See_Comment [Aut omated message] The = Basophils #) system which generated this result tra nsmitted reference range : <=0.2. The reference r christiano was not used to int erpret this result as normal/abnormal . [facility] YBXHWXH9648-12-26 04:34:00 Test Item Value Reference Range Interpretation Comments Troponin-I (test code no gt See_Comment [Auto mated message] The = Troponin-I) system which g enerated this result transmit sheba reference range : <=0.40. The reference r christiano was not used to interpr et this result as edy l/abnormal. [place] 570320-12-06 04:34:00 Test Item Value Reference Range Interpretation Comments Glucose Lvl (test code = Glucose Lvl) 125 70-99 [place] 570320-12-06 04:34:00 Test Item Value Reference Range Interpretation Comments BUN (test code = BUN) 17 7-22 [place] 570320-12-06 04:34:00 Test Item Value Reference Range Interpretation Comments Creatinine Lvl (test code = Creatinine 1.51 0.50-1.40 Lvl) [place] [address]-12-06 04:34:00 Test Item Value Reference Range Interpretation Comments Sodium Lvl (test code = Sodium Lvl) 142 135-145 [place] 570320-12-06 04:34:00 Test Item Value Reference Range Interpretation Comments Potassium Lvl (test code = Potassium 4.0 3.5-5.1 Lvl) [place] 570320-12-06 04:34:00 Test Item Value Reference Range Interpretation Comments Chloride Lvl (test code = Chloride Lvl) 108 95-109 [place] 570320-12-06 04:34:00 Test Item Value Reference Range Interpretation Comments CO2 (test code = CO2) 30 24-32 [place] 570320-12-06 04:34:00 Test Item Value Reference Range Interpretation Comments Calcium Lvl (test code = Calcium Lvl) 7.8 8.5-10.5 [place] 570320-12-06 04:34:00 Test Item Value Reference Range Interpretation Comments AGAP (test code = AGAP) 8.0 10.0-20.0 [place] 570320-12-06 04:34:00 Test Item Value Reference Range Interpretation Comments eGFR (test code = eGFR) 33 [facility]vetbenXCSQIJJHWQ9371-79-53 04:34:00 Test Item Value Reference Range Interpretation Comments WBC X 10x3 (test code = WBC X 10x3) 9.7 3.7-10.4 [place] 744040-12-06 04:34:00 Test Item Value Reference Range Interpretation Comments RBC X 10x6 (test code = RBC X 10x6) 3.96 4.20-5.40 [facility] HospitalTeyfdlwZEDMZNBUYO4816-14-49 04:34:00 Test Item Value Reference Range Interpretation Comments Hgb (test code = Hgb) 10.6 12.0-16.0 [place] 744040-12-06 04:34:00 Test Item Value Reference Range Interpretation Comments Hct (test code = Hct) 32.6 36.0-48.0 [facility] HospitalYngznhdBLXWOGLSYS6890-22-30 04:34:00 Test Item Value Reference Range Interpretation Comments MCV (test code = MCV) 82.3 80.0-98.0 [facility] HospitalKrgagxdMZTUZTXQDS2747-86-89 04:34:00 Test Item Value Reference Range Interpretation Comments MCH (test code = MCH) 26.6 pg 27.0-31.0 [facility] HospitalTbrybmfIRZMTDIDSB8098-97-26 04:34:00 Test Item Value Reference Range Interpretation Comments MCHC (test code = MCHC) 32.4 32.0-36.0 [facility] HospitalOszogdqMZXFHIFMVB5734-31-57 04:34:00 Test Item Value Reference Range Interpretation Comments RDW (test code = RDW) 16.8 11.5-14.5 [facility] HospitalOgnepnjKMLWGGYQAR5357-10-69 04:34:00 Test Item Value Reference Range Interpretation Comments Platelet (test code = Platelet) 178 133-450 [facility] HospitalOwqiqvlTXDJORSNZA5930-23-01 04:34:00 Test Item Value Reference Range Interpretation Comments MPV (test code = MPV) 8.0 7.4-10.4 [place] 744040-12-06 04:34:00 Test Item Value Reference Range Interpretation Comments PT (test code = PT) 14.7 s 12.0-14.7 [place] 744040-12-06 04:34:00 Test Item Value Reference Range Interpretation Comments INR (test code = INR) 1.14 1 0.85-1.17 [place] 744040-12-06 04:34:00 Test Item Value Reference Range Interpretation Comments PTT (test code = PTT) 31.2 s 22.9-35.8 [place] 744040-12-06 04:34:00 Test Item Value Reference Range Interpretation Comments Segs (test code = Segs) 73.9 45.0-75.0 [place] [address]-12-06 04:34:00 Test Item Value Reference Range Interpretation Comments Lymphocytes (test code = Lymphocytes) 11.0 20.0-40.0 [place] [address]-12-06 04:34:00 Test Item Value Reference Range Interpretation Comments Monocytes (test code = Monocytes) 13.6 2.0-12.0 [place] [address]-12-06 04:34:00 Test Item Value Reference Range Interpretation Comments Eosinophils (test code = 0.7 See_Comment [A utomated message] The Eosinophils) system which ge nerated this result tra nsmitted reference range : <=4.0. The reference r christiano was not used to int erpret this result as normal/abnormal . [place] [address]-12-06 04:34:00 Test Item Value Reference Range Interpretation Comments Basophils (test code = 0.8 See_Comment [Aut omated message] The Basophils) system which ge nerated this result tra nsmitted reference range : <=1.0. The reference r christiano was not used to int erpret this result as normal/abnormal . [place] 744040-12-06 04:34:00 Test Item Value Reference Range Interpretation Comments Neutrophils # (test code = Neutrophils 7.2 1.5-8.1 #) [place] 744040-12-06 04:34:00 Test Item Value Reference Range Interpretation Comments Lymphocytes # (test code = Lymphocytes 1.1 1.0-5.5 #) [place] [address]-12-06 04:34:00 Test Item Value Reference Range Interpretation Comments Monocytes # (test code 1.3 See_Comment [Aut omated message] The = Monocytes #) system which generated this result tra nsmitted reference range : <=0.8. The reference r christiano was not used to int erpret this result as normal/abnormal . [place] [address]-12-06 04:34:00 Test Item Value Reference Range Interpretation Comments Eosinophils # (test code 0.1 See_Comment [A utomated message] The = Eosinophils #) system whic h generated this result tra nsmitted reference range : <=0.5. The reference r christiano was not used to int erpret this result as normal/abnormal . [facility]udaWypnozpSUMJUPTXUD1056-26-16 04:34:00 Test Item Value Reference Range Interpretation Comments Basophils # (test code 0.1 See_Comment [Aut omated message] The = Basophils #) system which generated this result tra nsmitted reference range : <=0.2. The reference r christiano was not used to int erpret this result as normal/abnormal . [facility] JMQNHOC9532-70-03 04:34:00 Test Item Value Reference Range Interpretation Comments Troponin-I (test code no gt See_Comment [Auto mated message] The = Troponin-I) system which g enerated this result transmit sheba reference range : <=0.40. The reference r christiano was not used to interpr et this result as edy l/abnormal. [facility] [id number] 04:34:00 Test Item Value Reference Range Interpretation Comments Glucose Lvl (test code = Glucose Lvl) 125 70-99 [facility] [id number] 04:34:00 Test Item Value Reference Range Interpretation Comments BUN (test code = BUN) 17 7-22 [facility] [id number] 04:34:00 Test Item Value Reference Range Interpretation Comments Creatinine Lvl (test code = Creatinine 1.51 0.50-1.40 Lvl) [facility] [id number] 04:34:00 Test Item Value Reference Range Interpretation Comments Sodium Lvl (test code = Sodium Lvl) 142 135-145 [facility] [id number] 04:34:00 Test Item Value Reference Range Interpretation Comments Potassium Lvl (test code = Potassium 4.0 3.5-5.1 Lvl) [facility] [id number] 04:34:00 Test Item Value Reference Range Interpretation Comments Chloride Lvl (test code = Chloride Lvl) 108 95-109 [facility] [id number] 04:34:00 Test Item Value Reference Range Interpretation Comments CO2 (test code = CO2) 30 24-32 [facility] [id number] 04:34:00 Test Item Value Reference Range Interpretation Comments Calcium Lvl (test code = Calcium Lvl) 7.8 8.5-10.5 [facility]2020-12-06 04:34:00 Test Item Value Reference Range Interpretation Comments AGAP (test code = AGAP) 8.0 10.0-20.0 [facility] [id number] 04:34:00 Test Item Value Reference Range Interpretation Comments eGFR (test code = eGFR) 33 [facility] HospitalIlozsuzMYCMJMFQHA8804-27-96 04:34:00 Test Item Value Reference Range Interpretation Comments WBC X 10x3 (test code = WBC X 10x3) 9.7 3.7-10.4 [facility] HospitalHuyrqpxEQKESTMAPO7101-99-24 04:34:00 Test Item Value Reference Range Interpretation Comments RBC X 10x6 (test code = RBC X 10x6) 3.96 4.20-5.40 [facility] HospitalBixfrguXZTARDMYNM5088-81-77 04:34:00 Test Item Value Reference Range Interpretation Comments Hgb (test code = Hgb) 10.6 12.0-16.0 [facility] HospitalEmtrefhNZSDSWCHAB2054-10-45 04:34:00 Test Item Value Reference Range Interpretation Comments Hct (test code = Hct) 32.6 36.0-48.0 [facility] HospitalNphcyzhXPSBQQBCKA5625-45-45 04:34:00 Test Item Value Reference Range Interpretation Comments MCV (test code = MCV) 82.3 80.0-98.0 [facility] HospitalDazufklENSRYXZVOS3361-27-54 04:34:00 Test Item Value Reference Range Interpretation Comments MCH (test code = MCH) 26.6 pg 27.0-31.0 [facility] HospitalNijvchqVZRNGBKQCV1844-96-61 04:34:00 Test Item Value Reference Range Interpretation Comments MCHC (test code = MCHC) 32.4 32.0-36.0 [place] 744040-12-06 04:34:00 Test Item Value Reference Range Interpretation Comments RDW (test code = RDW) 16.8 11.5-14.5 [facility] HospitalPsqvzfmJHOXJASUFY6735-06-38 04:34:00 Test Item Value Reference Range Interpretation Comments Platelet (test code = Platelet) 178 133-450 [facility] HospitalPmjgmyvZCKITFLNAD0474-81-76 04:34:00 Test Item Value Reference Range Interpretation Comments MPV (test code = MPV) 8.0 7.4-10.4 [place] [address]-12-06 04:34:00 Test Item Value Reference Range Interpretation Comments PT (test code = PT) 14.7 s 12.0-14.7 [place] [address]-12-06 04:34:00 Test Item Value Reference Range Interpretation Comments INR (test code = INR) 1.14 1 0.85-1.17 [place] 744040-12-06 04:34:00 Test Item Value Reference Range Interpretation Comments PTT (test code = PTT) 31.2 s 22.9-35.8 [place] [address]-12-06 04:34:00 Test Item Value Reference Range Interpretation Comments Segs (test code = Segs) 73.9 45.0-75.0 [place] [address]-12-06 04:34:00 Test Item Value Reference Range Interpretation Comments Lymphocytes (test code = Lymphocytes) 11.0 20.0-40.0 [place] [address]-12-06 04:34:00 Test Item Value Reference Range Interpretation Comments Monocytes (test code = Monocytes) 13.6 2.0-12.0 [place] [address]-12-06 04:34:00 Test Item Value Reference Range Interpretation Comments Eosinophils (test code = 0.7 See_Comment [A utomated message] The Eosinophils) system which ge nerated this result tra nsmitted reference range : <=4.0. The reference r christiano was not used to int erpret this result as normal/abnormal . [place] 744040-12-06 04:34:00 Test Item Value Reference Range Interpretation Comments Basophils (test code = 0.8 See_Comment [Aut omated message] The Basophils) system which ge nerated this result tra nsmitted reference range : <=1.0. The reference r christiano was not used to int erpret this result as normal/abnormal . [place] 744040-12-06 04:34:00 Test Item Value Reference Range Interpretation Comments Neutrophils # (test code = Neutrophils 7.2 1.5-8.1 #) [place] [address]-12-06 04:34:00 Test Item Value Reference Range Interpretation Comments Lymphocytes # (test code = Lymphocytes 1.1 1.0-5.5 #) [place] [address]-12-06 04:34:00 Test Item Value Reference Range Interpretation Comments Monocytes # (test code 1.3 See_Comment [Aut omated message] The = Monocytes #) system which generated this result tra nsmitted reference range : <=0.8. The reference r christiano was not used to int erpret this result as normal/abnormal . [facility]udaApxyhimNNTRDSVWBE7721-90-92 04:34:00 Test Item Value Reference Range Interpretation Comments Eosinophils # (test code 0.1 See_Comment [A utomated message] The = Eosinophils #) system whic h generated this result tra nsmitted reference range : <=0.5. The reference r christiano was not used to int erpret this result as normal/abnormal . [facility] BudaJbcurigUIFGDKAEKD1009-74-56 04:34:00 Test Item Value Reference Range Interpretation Comments Basophils # (test code 0.1 See_Comment [Aut omated message] The = Basophils #) system which generated this result tra nsmitted reference range : <=0.2. The reference r christiano was not used to int erpret this result as normal/abnormal . [facility] SATAGWJ4053-04-64 04:34:00 Test Item Value Reference Range Interpretation Comments Troponin-I (test code no gt See_Comment [Auto mated message] The = Troponin-I) system which g enerated this result transmit sheba reference range : <=0.40. The reference r christiano was not used to interpr et this result as edy l/abnormal. [facility] [id number] 04:34:00 Test Item Value Reference Range Interpretation Comments Glucose Lvl (test code = Glucose Lvl) 125 70-99 [facility] [id number] 04:34:00 Test Item Value Reference Range Interpretation Comments BUN (test code = BUN) 17 7-22 [facility] [employer] [id number] 04:34:00 Test Item Value Reference Range Interpretation Comments Creatinine Lvl (test code = Creatinine 1.51 0.50-1.40 Lvl) [facility] [id number] 04:34:00 Test Item Value Reference Range Interpretation Comments Sodium Lvl (test code = Sodium Lvl) 142 135-145 [facility] [employer] [id number] 04:34:00 Test Item Value Reference Range Interpretation Comments Potassium Lvl (test code = Potassium 4.0 3.5-5.1 Lvl) [place] 570320-12-06 04:34:00 Test Item Value Reference Range Interpretation Comments Chloride Lvl (test code = Chloride Lvl) 108 95-109 [place] 570320-12-06 04:34:00 Test Item Value Reference Range Interpretation Comments CO2 (test code = CO2) 30 24-32 [place] 570320-12-06 04:34:00 Test Item Value Reference Range Interpretation Comments Calcium Lvl (test code = Calcium Lvl) 7.8 8.5-10.5 [place] 570320-12-06 04:34:00 Test Item Value Reference Range Interpretation Comments AGAP (test code = AGAP) 8.0 10.0-20.0 [place] 570320-12-06 04:34:00 Test Item Value Reference Range Interpretation Comments eGFR (test code = eGFR) 33 [place] [address]-12-06 04:34:00 Test Item Value Reference Range Interpretation Comments WBC X 10x3 (test code = WBC X 10x3) 9.7 3.7-10.4 [place] [address]-12-06 04:34:00 Test Item Value Reference Range Interpretation Comments RBC X 10x6 (test code = RBC X 10x6) 3.96 4.20-5.40 [place] 744040-12-06 04:34:00 Test Item Value Reference Range Interpretation Comments Hgb (test code = Hgb) 10.6 12.0-16.0 [place] [address]-12-06 04:34:00 Test Item Value Reference Range Interpretation Comments Hct (test code = Hct) 32.6 36.0-48.0 [place] [address]-12-06 04:34:00 Test Item Value Reference Range Interpretation Comments MCV (test code = MCV) 82.3 80.0-98.0 [place] [address]-12-06 04:34:00 Test Item Value Reference Range Interpretation Comments MCH (test code = MCH) 26.6 pg 27.0-31.0 [place] [address]-12-06 04:34:00 Test Item Value Reference Range Interpretation Comments MCHC (test code = MCHC) 32.4 32.0-36.0 [place] [address]-12-06 04:34:00 Test Item Value Reference Range Interpretation Comments RDW (test code = RDW) 16.8 11.5-14.5 [place] [address]-12-06 04:34:00 Test Item Value Reference Range Interpretation Comments Platelet (test code = Platelet) 178 133-450 [place] [address]-12-06 04:34:00 Test Item Value Reference Range Interpretation Comments MPV (test code = MPV) 8.0 7.4-10.4 [place] [address]-12-06 04:34:00 Test Item Value Reference Range Interpretation Comments PT (test code = PT) 14.7 s 12.0-14.7 [address]12-06 04:34:00 Test Item Value Reference Range Interpretation Comments INR (test code = INR) 1.14 1 0.85-1.17 [place] [address]-12-06 04:34:00 Test Item Value Reference Range Interpretation Comments PTT (test code = PTT) 31.2 s 22.9-35.8 [place] [address]-12-06 04:34:00 Test Item Value Reference Range Interpretation Comments Segs (test code = Segs) 73.9 45.0-75.0 [place] [address]-12-06 04:34:00 Test Item Value Reference Range Interpretation Comments Lymphocytes (test code = Lymphocytes) 11.0 20.0-40.0 [place] [address]-12-06 04:34:00 Test Item Value Reference Range Interpretation Comments Monocytes (test code = Monocytes) 13.6 2.0-12.0 [place] [address]-12-06 04:34:00 Test Item Value Reference Range Interpretation Comments Eosinophils (test code = 0.7 See_Comment [A utomated message] The Eosinophils) system which ge nerated this result tra nsmitted reference range : <=4.0. The reference r christiano was not used to int erpret this result as normal/abnormal . [address]12-06 04:34:00 Test Item Value Reference Range Interpretation Comments Basophils (test code = 0.8 See_Comment [Aut omated message] The Basophils) system which ge nerated this result tra nsmitted reference range : <=1.0. The reference r christiano was not used to int erpret this result as normal/abnormal . [facility]udaHpvmfooPIRRMQLSOA2096-38-34 04:34:00 Test Item Value Reference Range Interpretation Comments Neutrophils # (test code = Neutrophils 7.2 1.5-8.1 #) [facility]PvigtuqFXSBIHXAUZ0781-80-27 04:34:00 Test Item Value Reference Range Interpretation Comments Lymphocytes # (test code = Lymphocytes 1.1 1.0-5.5 #) [facility]PxqwfqiXBWWMLGXYC5555-24-29 04:34:00 Test Item Value Reference Range Interpretation Comments Monocytes # (test code 1.3 See_Comment [Aut omated message] The = Monocytes #) system which generated this result tra nsmitted reference range : <=0.8. The reference r christiano was not used to int erpret this result as normal/abnormal . [facility]iacAenzvvtXWLITWFSXN3479-92-62 04:34:00 Test Item Value Reference Range Interpretation Comments Eosinophils # (test code 0.1 See_Comment [A utomated message] The = Eosinophils #) system whic h generated this result tra nsmitted reference range : <=0.5. The reference r christiano was not used to int erpret this result as normal/abnormal . [facility]iacFbwbxxiSNFQHLWVHP7178-37-66 04:34:00 Test Item Value Reference Range Interpretation Comments Basophils # (test code 0.1 See_Comment [Aut omated message] The = Basophils #) system which generated this result tra nsmitted reference range : <=0.2. The reference r christiano was not used to int erpret this result as normal/abnormal . [facility] [id number] 04:34:00 Test Item Value Reference Range Interpretation Comments Troponin-I (test code no gt See_Comment [Auto mated message] The = Troponin-I) system which g enerated this result transmit sheba reference range : <=0.40. The reference r christiano was not used to interpr et this result as edy l/abnormal. [facility] [id number] 04:34:00 Test Item Value Reference Range Interpretation Comments Glucose Lvl (test code = Glucose Lvl) 125 70-99 [facility] [id number] 04:34:00 Test Item Value Reference Range Interpretation Comments BUN (test code = BUN) 17 7-22 [place] 570320-12-06 04:34:00 Test Item Value Reference Range Interpretation Comments Creatinine Lvl (test code = Creatinine 1.51 0.50-1.40 Lvl) [place] 570320-12-06 04:34:00 Test Item Value Reference Range Interpretation Comments Sodium Lvl (test code = Sodium Lvl) 142 135-145 [place] 570320-12-06 04:34:00 Test Item Value Reference Range Interpretation Comments Potassium Lvl (test code = Potassium 4.0 3.5-5.1 Lvl) [place] 570320-12-06 04:34:00 Test Item Value Reference Range Interpretation Comments Chloride Lvl (test code = Chloride Lvl) 108 95-109 [place] 570320-12-06 04:34:00 Test Item Value Reference Range Interpretation Comments CO2 (test code = CO2) 30 24-32 [place] 570320-12-06 04:34:00 Test Item Value Reference Range Interpretation Comments Calcium Lvl (test code = Calcium Lvl) 7.8 8.5-10.5 [place] 570320-12-06 04:34:00 Test Item Value Reference Range Interpretation Comments AGAP (test code = AGAP) 8.0 10.0-20.0 [place] 570320-12-06 04:34:00 Test Item Value Reference Range Interpretation Comments eGFR (test code = eGFR) 33 [place] [address]-12-06 04:34:00 Test Item Value Reference Range Interpretation Comments WBC X 10x3 (test code = WBC X 10x3) 9.7 3.7-10.4 [place] [address]-12-06 04:34:00 Test Item Value Reference Range Interpretation Comments RBC X 10x6 (test code = RBC X 10x6) 3.96 4.20-5.40 [place] [address]-12-06 04:34:00 Test Item Value Reference Range Interpretation Comments Hgb (test code = Hgb) 10.6 12.0-16.[address]12-06 04:34:00 Test Item Value Reference Range Interpretation Comments Hct (test code = Hct) 32.6 36.0-48.0 [place] 744040-12-06 04:34:00 Test Item Value Reference Range Interpretation Comments MCV (test code = MCV) 82.3 80.0-98.0 [place] 744040-12-06 04:34:00 Test Item Value Reference Range Interpretation Comments MCH (test code = MCH) 26.6 pg 27.0-31.0 [facility] HospitalGlynzecILIMSKWKKL6171-78-95 04:34:00 Test Item Value Reference Range Interpretation Comments MCHC (test code = MCHC) 32.4 32.0-36.0 [place] 744040-12-06 04:34:00 Test Item Value Reference Range Interpretation Comments RDW (test code = RDW) 16.8 11.5-14.5 [place] 744040-12-06 04:34:00 Test Item Value Reference Range Interpretation Comments Platelet (test code = Platelet) 178 133-450 [facility] HospitalHiytkkdYZXNTGJSBB6626-72-35 04:34:00 Test Item Value Reference Range Interpretation Comments MPV (test code = MPV) 8.0 7.4-10.4 [place] 744040-12-06 04:34:00 Test Item Value Reference Range Interpretation Comments PT (test code = PT) 14.7 s 12.0-14.7 [facility] HospitalEzcllgyVWHKSJLWLW2546-42-86 04:34:00 Test Item Value Reference Range Interpretation Comments INR (test code = INR) 1.14 1 0.85-1.17 [facility] HospitalJcunhmpFPNTFOQEFP2321-27-30 04:34:00 Test Item Value Reference Range Interpretation Comments PTT (test code = PTT) 31.2 s 22.9-35.8 [place] 744040-12-06 04:34:00 Test Item Value Reference Range Interpretation Comments Segs (test code = Segs) 73.9 45.0-75.0 [place] 744040-12-06 04:34:00 Test Item Value Reference Range Interpretation Comments Lymphocytes (test code = Lymphocytes) 11.0 20.0-40.0 [place] [id number] 04:34:00 Test Item Value Reference Range Interpretation Comments Monocytes (test code = Monocytes) 13.6 2.0-12.0 [place] [id number] 04:34:00 Test Item Value Reference Range Interpretation Comments Eosinophils (test code = 0.7 See_Comment [A utomated message] The Eosinophils) system which ge nerated this result tra nsmitted reference range : <=4.0. The reference r christiano was not used to int erpret this result as normal/abnormal . [facility]9490[facility]90-08 04:34:00 Test Item Value Reference Range Interpretation Comments Basophils (test code = 0.8 See_Comment [Aut omated message] The Basophils) system which ge nerated this result tra nsmitted reference range : <=1.0. The reference r christiano was not used to int erpret this result as normal/abnormal . [facility]DuryryfYXHIFNMHHK2133-81-00 04:34:00 Test Item Value Reference Range Interpretation Comments Neutrophils # (test code = Neutrophils 7.2 1.5-8.1 #) [facility]ghtqkzPKXLRQMCSG0639-76-60 04:34:00 Test Item Value Reference Range Interpretation Comments Lymphocytes # (test code = Lymphocytes 1.1 1.0-5.5 #) [facility] HospitalQkbeqidRGKVHUMMUQ6932-78-15 04:34:00 Test Item Value Reference Range Interpretation Comments Monocytes # (test code 1.3 See_Comment [Aut omated message] The = Monocytes #) system which generated this result tra nsmitted reference range : <=0.8. The reference r christiano was not used to int erpret this result as normal/abnormal . [facility] HospitalNakvhioSSZRZXJXZY5377-50-80 04:34:00 Test Item Value Reference Range Interpretation Comments Eosinophils # (test code 0.1 See_Comment [A utomated message] The = Eosinophils #) system ic h generated this result tra nsmitted reference range : <=0.5. The reference r christiano was not used to int erpret this result as normal/abnormal . [facility] HospitalFazbftaYQGEALLKRH5731-92-04 04:34:00 Test Item Value Reference Range Interpretation Comments Basophils # (test code 0.1 See_Comment [Aut omated message] The = Basophils #) system which generated this result tra nsmitted reference range : <=0.2. The reference r christiano was not used to int erpret this result as normal/abnormal . [facility] [id number] 04:34:00 Test Item Value Reference Range Interpretation Comments Troponin-I (test code no gt See_Comment [Auto mated message] The = Troponin-I) system which g enerated this result transmit sheba reference range : <=0.40. The reference r christiano was not used to interpr et this result as edy l/abnormal. [place] 570320-12-06 04:34:00 Test Item Value Reference Range Interpretation Comments Glucose Lvl (test code = Glucose Lvl) 125 70-99 [place] 570320-12-06 04:34:00 Test Item Value Reference Range Interpretation Comments BUN (test code = BUN) 17 7-22 [place] 85041-12-06 04:34:00 Test Item Value Reference Range Interpretation Comments Creatinine Lvl (test code = Creatinine 1.51 0.50-1.40 Lvl) [place] 570320-12-06 04:34:00 Test Item Value Reference Range Interpretation Comments Sodium Lvl (test code = Sodium Lvl) 142 135-145 [place] 570320-12-06 04:34:00 Test Item Value Reference Range Interpretation Comments Potassium Lvl (test code = Potassium 4.0 3.5-5.1 Lvl) [place] 570320-12-06 04:34:00 Test Item Value Reference Range Interpretation Comments Chloride Lvl (test code = Chloride Lvl) 108 95-109 [place] 570320-12-06 04:34:00 Test Item Value Reference Range Interpretation Comments CO2 (test code = CO2) 30 24-32 [place] 570320-12-06 04:34:00 Test Item Value Reference Range Interpretation Comments Calcium Lvl (test code = Calcium Lvl) 7.8 8.5-10.5 [place] 570320-12-06 04:34:00 Test Item Value Reference Range Interpretation Comments AGAP (test code = AGAP) 8.0 10.0-20.0 [place] 570320-12-06 04:34:00 Test Item Value Reference Range Interpretation Comments eGFR (test code = eGFR) 33 [facility]129-83-09 04:34:00 Test Item Value Reference Range Interpretation Comments WBC X 10x3 (test code = WBC X 10x3) 9.7 3.7-10.4 [facility] HospitalThfwpiqGGAJRSHWUZ0077-07-20 04:34:00 Test Item Value Reference Range Interpretation Comments RBC X 10x6 (test code = RBC X 10x6) 3.96 4.20-5.40 [facility] HospitalBplauuqRZPHZHAJIW6345-20-39 04:34:00 Test Item Value Reference Range Interpretation Comments Hgb (test code = Hgb) 10.6 12.0-16.0 [facility] HospitalIrpzqmqWFFAJBPNKG4797-41-29 04:34:00 Test Item Value Reference Range Interpretation Comments Hct (test code = Hct) 32.6 36.0-48.0 [facility] HospitalOirhxutMTBAWHQZED2983-88-74 04:34:00 Test Item Value Reference Range Interpretation Comments MCV (test code = MCV) 82.3 80.0-98.0 [facility] HospitalYcdrokiKYULEMQATW1764-50-13 04:34:00 Test Item Value Reference Range Interpretation Comments MCH (test code = MCH) 26.6 pg 27.0-31.0 [facility] HospitalFpfcnxnSMHTBCNVAY5520-44-75 04:34:00 Test Item Value Reference Range Interpretation Comments MCHC (test code = MCHC) 32.4 32.0-36.0 [facility] HospitalJjkogdrCSYWXADEWB8786-68-47 04:34:00 Test Item Value Reference Range Interpretation Comments RDW (test code = RDW) 16.8 11.5-14.5 [facility] HospitalQygxvzaERDASAQUON3661-22-64 04:34:00 Test Item Value Reference Range Interpretation Comments Platelet (test code = Platelet) 178 133-450 [facility] HospitalXjeimgvSRDEHDYJYV9909-02-41 04:34:00 Test Item Value Reference Range Interpretation Comments MPV (test code = MPV) 8.0 7.4-10.4 [place] 744040-12-06 04:34:00 Test Item Value Reference Range Interpretation Comments PT (test code = PT) 14.7 s 12.0-14.7 [facility] HospitalAkmpnzpTNBQFGPYJQ5525-95-96 04:34:00 Test Item Value Reference Range Interpretation Comments INR (test code = INR) 1.14 1 0.85-1.17 [facility] HospitalVcndamkIXJOGJOVEB8210-38-92 04:34:00 Test Item Value Reference Range Interpretation Comments PTT (test code = PTT) 31.2 s 22.9-35.8 [place] 82454-12-06 04:34:00 Test Item Value Reference Range Interpretation Comments Segs (test code = Segs) 73.9 45.0-75.0 [place] 744040-12-06 04:34:00 Test Item Value Reference Range Interpretation Comments Lymphocytes (test code = Lymphocytes) 11.0 20.0-40.0 [place] 82454-12-06 04:34:00 Test Item Value Reference Range Interpretation Comments Monocytes (test code = Monocytes) 13.6 2.0-12.0 [place] [address]2454-12-06 04:34:00 Test Item Value Reference Range Interpretation Comments Eosinophils (test code = 0.7 See_Comment [A utomated message] The Eosinophils) system which ge nerated this result tra nsmitted reference range : <=4.0. The reference r christiano was not used to int erpret this result as normal/abnormal . [place] [address]54-12-06 04:34:00 Test Item Value Reference Range Interpretation Comments Basophils (test code = 0.8 See_Comment [Aut omated message] The Basophils) system which ge nerated this result tra nsmitted reference range : <=1.0. The reference r christiano was not used to int erpret this result as normal/abnormal . [place] 744040-12-06 04:34:00 Test Item Value Reference Range Interpretation Comments Neutrophils # (test code = Neutrophils 7.2 1.5-8.1 #) [place] 744040-12-06 04:34:00 Test Item Value Reference Range Interpretation Comments Lymphocytes # (test code = Lymphocytes 1.1 1.0-5.5 #) [place] [address]-12-06 04:34:00 Test Item Value Reference Range Interpretation Comments Monocytes # (test code 1.3 See_Comment [Aut omated message] The = Monocytes #) system which generated this result tra nsmitted reference range : <=0.8. The reference r christiano was not used to int erpret this result as normal/abnormal . [place] 82454-12-06 04:34:00 Test Item Value Reference Range Interpretation Comments Eosinophils # (test code 0.1 See_Comment [A utomated message] The = Eosinophils #) system whic h generated this result tra nsmitted reference range : <=0.5. The reference r christiano was not used to int erpret this result as normal/abnormal . [facility] LbhwtwuDZJCYAQFMU8432-94-52 04:34:00 Test Item Value Reference Range Interpretation Comments Basophils # (test code 0.1 See_Comment [Aut omated message] The = Basophils #) system which generated this result tra nsmitted reference range : <=0.2. The reference r christiano was not used to int erpret this result as normal/abnormal . [facility] SHOULDER 2+ VW [id number] 17:54:27 Comminuted distal clavicle fracture. EXAM: XR SHOULDER 2+ VW RIGHT HISTORY: shoulder pain COMPARISON: None. FINDINGS: A comminuted fracture of the distal clavicle is seen. There is resultantmild widening of the acromioclavicular joint. Alignment is maintained atthe glenohumeral joint which exhibits osteoarthritic changes manifested byjoint space narrowing and osteophytosis. Osteopenia is suggested.At herosclerotic calcifications are present in the aortic arch. [facility], [facility] 06/28/2020 12:55 PM CDTEXAM:XR SHOULDER 2+ VW RIGHTHISTORY:shoulder pain COMPARISON:None.FINDINGS: A comminuted fracture of the distal clavicle is seen. There is resultantmild widening of the acromioclavicular joint. Alignment is maintained atthe glenohumeral joint which exhibits osteoarthritic changes manifested byjoint space narrowing and osteophytosis. Osteopenia is suggested.Atherosclerotic calcifications are present in the aortic arch.IMPRESSIONComminuted distal clavicle fracture. [facility] [id number] 17:53:09 No acute bony abnormality. EXAM: XR FOREARM 2 VW RIGHT HISTORY: right arm pain COMPARISON: None. FINDINGS: Osteopenia is noted. 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 Mild osteoarthritic changes are present at theelbow. No acute fracture or dislocation is seen. [facility], [facility] Results [facility] User - 06/28/2020 12:54 PM CDTEXAM:XR FOREARM 2 VW RIGHTHISTORY:right arm pain COMPARISON:None.FINDINGS: Osteopenia is noted. 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 Mild osteoarthritic changes are present at theelbow. No acute fracture or dislocation is seen.IMPRESSIONNo acute bony abnormality.[facility] Notes Date/Time Note Provider Source 2022-11-27 EXAM: MRI CERVICAL SPINE WITHOUT CONTRAST [facility] 05:40:00-00:00 DATE: 11/27/2022 Center INDICATION: - Rule [...] 2022-11-27 EXAM: MRI CERVICAL SPINE WITHOUT CONTRAST [facility] 05:40:00-00:00 DATE: 11/27/2022 Center INDICATION: - Rule [...] 2022-11-27 EXAM: MRI CERVICAL SPINE WITHOUT CONTRAST [facility] 05:40:00-00:00 DATE: 11/27/2022 Center INDICATION: - Rule [...] 6-7. 2022-11-27 EXAM: CT BRAIN WITHOUT CONTRAST [facility] 01:29:43-00:00 DATE: 11/27/2022 Center INDICATION: - pain [...] MD 2022-11-27 EXAM: CT BRAIN WITHOUT CONTRAST [facility] 01:29:43-00:00 DATE: 11/27/2022 Center INDICATION: - pain [...] MD 2022-11-27 EXAM: CT BRAIN WITHOUT CONTRAST [facility] 01:29:43-00:00 DATE: 11/27/2022 Center INDICATION: - pain [...] 2022-11-27 EXAM: CT CERVICAL SPINE WITHOUT CONTRAST [facility] 00:49:03-00:00 DATE: 11/27/2022 0:49 Center INDICATION: Status post fall , pain after trauma. Following trauma transfer for higher level of care request for outside film interpretation CT cervical spine without contrast performed 11/26/2022 at [address] [facility] COMPARISON: None. TECHNIQUE: Volumetric CT of the cervical spine is acquired without contrast. Axial, coronal and sagittal images are provided. IV contrast: None. DLP: Refer to CT protocol form [place] SECTION: ER FINDINGS: The spine is imaged from the skull base to the l evel of T2/T3. Door Machine Operator: Noncontributory. Bones: There is generalized decreased [...] 2022-11-27 EXAM: CT CERVICAL SPINE WITHOUT CONTRAST [facility] 00:49:03-00:00 DATE: 11/27/2022 0:49 Center INDICATION: Status post fall , pain after trauma. Following trauma transfer for higher level of care request for outside film interpretation CT cervical spine without contrast performed 11/26/2022 at [address] [facility] COMPARISON: None. TECHNIQUE: Volumetric CT of the cervical spine is acquired without contrast. Axial, coronal and sagittal images are provided. IV contrast: None. DLP: Refer to CT protocol form [place] SECTION: ER FINDINGS: The spine is imaged from the skull base to the l evel of T2/T3. Door Machine Operator: Noncontributory. Bones: There is generalized decreased [...] 2022-11-27 EXAM: CT CERVICAL SPINE WITHOUT CONTRAST [facility] 00:49:03-00:00 DATE: 11/27/2022 0:49 Center INDICATION: Status post fall , pain after trauma. Following trauma transfer for higher level of care request for outside film interpretation CT cervical spine without contrast performed 11/26/2022 at [address] [facility] COMPARISON: None. TECHNIQUE: Volumetric CT of the cervical spine is acquired without contrast. Axial, coronal and sagittal images are provided. IV contrast: None. DLP: Refer to CT protocol form [place] SECTION: ER FINDINGS: The spine is imaged from the skull base to the l evel of T2/T3. Door Machine Operator: Noncontributory. Bones: There is generalized decreased [...] 2022-11-21 EXAM: XR RIGHT KNEE [address] [facility] 06:10:00-00:00 DATE: 11/21/2022 6:10 Center INDICATION: [...] 2022-11-21 EXAM: XR RIGHT KNEE [address] [facility] 06:10:00-00:00 DATE: 11/21/2022 6:10 Center INDICATION: [...] 2022-11-21 EXAM: XR RIGHT KNEE [address] [facility] 06:10:00-00:00 DATE: 11/21/2022 6:10 Center INDICATION: [...] ER 2022-11-21 EXAM: CT BRAIN WITHOUT CONTRAST [facility] 05:13:56-00:00 DATE: 11/21/2022 5:16 AM Center INDICATION: [...] shift. 2022-11-21 EXAM: CT BRAIN WITHOUT CONTRAST [facility] 05:13:56-00:00 DATE: 11/21/2022 5:16 AM Center INDICATION: [...] shift. 2022-11-21 EXAM: CT BRAIN WITHOUT CONTRAST [facility] 05:13:56-00:00 DATE: 11/21/2022 5:16 AM Center INDICATION: [...] 2020-09-05 EXAM: MRI CERVICAL SPINE WITHOUT CONTRAST [facility] 16:36:00-00:00 DATE: 09/05/2020 405 PM [facility] r INDICATION: 79 years old Fem [...] 2020-09-05 EXAM: MRI CERVICAL SPINE WITHOUT CONTRAST [facility] 16:36:00-00:00 DATE: 09/05/2020 405 PM [facility] INDICATION: 79 years old Fem [...] Remainder of the findings have been stable [facility] prior study. 2020-09-05 EXAM: MRI CERVICAL SPINE WITHOUT CONTRAST [facility] 16:36:00-00:00 DATE: 09/05/2020 405 PM [facility] r INDICATION: 79 years old Fem [...] of the findings have been stable fr prior study. 2020-09-05 EXAM: CT CHEST WITH CONTRAST [facility] 06:30:20-00:00 EXAM: CT ABDOMEN AND PELVIS WITH CONTRAST Center DATE: 09/05/2020 5:12 PSYCHIATRIC ARNP INDICATION: - eval for T and L spine fx given C spine fx COMPARISON: None TECHNIQUE: Volumetric CT of the chest, abdomen and pelvis is acquired following intravenous administration of contrast. Axial, coronal and sagittal images are provided. IV contrast: 100 mL Omnipaque 350 Oral contrast: None. DLP: 3034 mGy-cm [place] SECTION: ER FINDINGS: Door Machine Operator: Noncontributory. Lines and tubes: None. Lower [...] ulitis. 2020-09-05 EXAM: CT CHEST WITH CONTRAST [facility] 06:30:20-00:00 EXAM: CT ABDOMEN AND PELVIS WITH CONTRAST [place] DATE: 09/05/2020 5:12 PSYCHIATRIC ARNP INDICATION: - eval for T and L spine fx given C spine fx COMPARISON: None TECHNIQUE: Volumetric CT of the chest, abdomen and pelvis is acquired following intravenous administration of contrast. Axial, coronal and sagittal images are provided. IV contrast: 100 mL Omnipaque 350 Oral contrast: None. DLP: 3034 mGy-cm [place] SECTION: ER FINDINGS: Door Machine Operator: Noncontributory. Lines and tubes: None. Lower [...] ulitis. 2020-09-05 EXAM: CT CHEST WITH CONTRAST [facility] 06:30:20-00:00 EXAM: CT ABDOMEN AND PELVIS WITH CONTRAST Center DATE: 09/05/2020 5:12 PSYCHIATRIC ARNP INDICATION: - eval for T and L spine fx given C spine fx COMPARISON: None TECHNIQUE: Volumetric CT of the chest, abdomen and pelvis is acquired following intravenous administration of contrast. Axial, coronal and sagittal images are provided. IV contrast: 100 mL Omnipaque 350 Oral contrast: None. DLP: 3034 mGy-cm [place] SECTION: ER FINDINGS: Door Machine Operator: Noncontributory. Lines and tubes: None. Lower [...] ulitis. 2020-09-05 EXAM: XR CHEST 1 VIEW [facility] 06:08:00-00:00 DATE: 09/05/2020 6:14 [facility]AT[facility]IC [facility]NP Center INDICATION: - preop COMPARISON: None. TECHNIQUE: [...] ER 2020-09-05 EXAM: XR CHEST 1 VIEW [facility] 06:08:00-00:00 DATE: 09/05/2020 6:14 [facility]AT[facility]IC [facility] Center INDICATION: - preop COMPARISON: None. TECHNIQUE: [...] ER 2020-09-05 EXAM: XR CHEST 1 VIEW [facility] 06:08:00-00:00 DATE: 09/05/2020 6:14 [facility]AT[facility]IC [facility] Center INDICATION: - preop COMPARISON: None. TECHNIQUE: [...] 2020-09-05 EXAM: XR RIGHT WRIST 3 VIEWS [facility] 03:25:00-00:00 DATE: 09/05/2020 3:25 [facility]AT[facility]IC [facility] Center INDICATION: - splinted, concern for fracture [...] is identified. [place] SECTION: ER 2020-09-05 EXAM: XR RIGHT WRIST 3 VIEWS [facility] 03:25:00-00:00 DATE: 09/05/2020 3:25 [facility]AT[facility]IC [facility]NP Center INDICATION: - splinted, concern for fracture [...] is identified. [place] SECTION: ER 2020-09-05 EXAM: XR RIGHT WRIST 3 VIEWS [facility] 03:25:00-00:00 DATE: 09/05/2020 3:25 [facility] Center INDICATION: - splinted, concern for fracture [...] [facility] CERVICAL SPINE WITHOUT CONTRAST. [facility] 00:50:17-00:00 DATE: 09/04/2020 10:[address] INDICATION: - concern for ligamentous [...] facets. 4. Lower cervical spondylosi s causing fhve-hg-khonwyjp canal stenosis at C5-C6 and C6-C7. There is no cord signal abnormality identified. 2020-09-05 EXAM: [facility] CERVICAL SPINE WITHOUT CONTRAST. [facility] 00:50:17-00:00 DATE: 09/04/2020 10:05 [address]RIC AR[facility] [address] [facility] INDICATION: - concern for ligamentous [...] facets. 4. Lower cervical spondylosi s causing qqsh-zc-sjsavlxw canal stenosis at C5-C6 and C6-C7. There is no cord signal abnormality identified. 2020-09-05 EXAM: [facility] CERVICAL SPINE WITHOUT CONTRAST. [facility] 00:50:17-00:00 DATE: 09/04/2020 10:05 PM [address]IATRIC ARNP [address] [facility] INDICATION: - concern for ligamentous [...] facets. 4. Lower cervical spondylosi s causing psvm-bp-dnvqfttk canal stenosis at C5-C6 and C6-C7. There is no cord signal abnormality identified. 2020-09-04 [facility] 21:38:00-00:00 EXAMINATION: CT head without contrast Center DATE: 09/04/2020 INDICATION: Concussion. Fall. FINDINGS: Noncontrast CT images of the head are performed at an outside institution and submitted for reinterpretation following transfer. There is no intracranial hemorrhage or other bra in injury. The skull and sinuses are intact. IMPRESSION: No acute intracranial abnormality. [place] SECTION: Neuro 2020-09-04 [facility] :38:00-00:00 EXAMINATION: CT head without contrast Center DATE: 09/04/2020 INDICATION: Concussion. Fall. FINDINGS: Noncontrast CT images of the head are performed at an outside institution and submitted for reinterpretation following transfer. There is no intracranial hemorrhage or other bra in injury. The skull and sinuses are intact. IMPRESSION: No acute intracranial abnormality. [place] SECTION: Neuro 2020-09-04 [facility] :38:00-00:00 EXAMINATION: CT head without contrast Center DATE: 09/04/2020 INDICATION: Concussion. Fall. FINDINGS: Noncontrast CT images of the head are performed at an outside institution and submitted for reinterpretation following transfer. There is no intracranial hemorrhage or other bra in injury. The skull and sinuses are intact.
--- NOTE | 2023-06-14 20:11 | RAD REPORT ---
EXAM DESCRIPTION: RAD - Ankle Left 3 View - 06/14/2023 8:01 pm CLINICAL HISTORY: PAIN COMPARISON: Ankle Left 3 View dated 08/26/2019 FINDINGS: Small bony avulsion fracture suspected distal most aspect of the fibula. Subtle transverse fracture of the medial malleolus also likely. Moderate adjacent soft tissue swelling. Loss of the no rmal plantar arch is noted with partial midfoot collapse likely indicating underlying posterior tibia lis tendon dysfunction.
--- NOTE | 2023-06-14 20:24 | ER ---
Nurse's Notes [facility] Name: Radha Bentley Age: 82 yrs Sex: Female : 1940 Arrival Date: 06/14/2023 Time: 18:24 Bed 6 Private MD: Diagnosis: Closed head injury;Avulsion fracture to left lateral malleolus Presentation: 06/14 18:26 Chief complaint: EMS states: toned out to patient home for fall from standing. Pt ld1 denies LOC - not on blood thinners. C/O pain to right eye - hematoma from fall, skin tear to right forearm. Coronavirus screen: At this time, the client does not indicate any symptoms associated with coronavirus-19. Ebola Screen: No symptoms or risks identified at this time. Initial Sepsis Screen: Does the patient meet any 2 criteria? No. Patient's initial sepsis screen is negative. Does the patient have a suspected source of infection? No. Patient's initial sepsis screen is negative. Risk Assessment: Do you want to hurt yourself or someone else? Patient reports no desire to harm self or others. Onset of symptoms was June 14, 2023. 18:26 Method Of Arrival: EMS: [facility] ld1 18:26 Acuity: VAIBHAV 3 ld1 Triage Assessment: 18:27 General: Appears in no apparent distress. comfortable, Behavior is calm, cooperative, ld1 appropriate for age. Pain: Complains of pain in face Pain does not radiate. Pain currently is 6 out of 10 on a pain scale. Quality of pain is described as throbbing. EENT: Reports pain in forehead Denies blurred vision. Neuro: Level of Consciousness is awake, alert, obeys commands, Oriented to person, place, time, situation. Cardiovascular: Capillary refill < 3 seconds Patient's skin is warm and dry. Rhythm is sinus rhythm. Respiratory: Airway is patent Respiratory effort is even, unlabored. GI: Abdomen is round non-distended. : No signs and/or symptoms were reported regarding the genitourinary system. Derm: Skin has skin tears on to right forearm. Musculoskeletal: No signs and/or symptoms reported regarding the musculoskeletal system. Historical: - Allergies: 18:27 Avelox; ld1 18:27 Band-aid adhesive; ld1 - PMHx: 18:27 ADD/ADHD; Hypertension; kidney disease; COPD; Hypothyroidism; Heart Murmur; ld1 Hyperlipidemia; - PSHx: 18:27 bilateral knee replacement; breast reduction; Cholecystectomy; Shoulder replacment; ld1 - Immunization history:: Adult Immunizations. - Social history:: Smoking status: Patient denies any tobacco usage or history of. - Family history:: not pertinent. Screenin:29 [facility] ED Fall Risk Assessment (Adult) History of falling in the last 3 months, ld1 including since admission No falls in past 3 months (0 pts). Abuse screen: Denies threats or abuse. Denies injuries from another. Nutritional screening: No deficits noted. Tuberculosis screening: No symptoms or risk factors identified. Assessment: 18:29 Reassessment: See triage assessment. ld1 19:15 Reassessment: Patient appears in no apparent distress at this time. Patient and/or jb4 family updated on plan of care and expected duration. Pain level reassessed. Patient is alert, oriented x 3, equal unlabored respirations, skin warm/dry/pink. 20:12 Reassessment: Patient appears in no apparent distress at this time. Patient and/or jb4 family updated on plan of care and expected duration. Pain level reassessed. Patient is alert, oriented x 3, equal unlabored respirations, skin warm/dry/pink. Vital Signs: 18:26 BP 151 / 101; Pulse 64; Resp 18; Temp 97.6(O); Pulse Ox 100% on R/A; Weight 81.19 kg; ld1 Height 5 ft. 4 in. ; Pain 6/10; 20:12 BP 140 / 52; Pulse 70; Resp 16; Pulse Ox 99% ; jb4 21:07 BP 122 / 85; Pulse 65; Resp 18; Pulse Ox 97% on R/A; me1 18:26 Body Mass Index 30.72 (81.19 kg, 162.56 cm) ld1 18:26 Pain Scale: Adult ld1 ED Course: 18:26 Patient arrived in ED. ld1 18:27 Triage completed. ld1 18:27 Ashish Morales MD is Attending Physician. rt 18:27 Arm band placed on right wrist. ld1 18:29 Patient has correct armband on for positive identification. Placed in gown. Bed in low ld1 position. Call light in reach. Side rails up X2. central services tech on. Pulse ox on. NIBP on. Door closed. Noise minimized. Warm blanket given. 18:29 No provider procedures requiring assistance completed. ld1 18:45 Katherin Gambino, RN is Primary Nurse. ld1 18:58 CT Head C Spine In Process Unspecified. EDMS 20:03 Ankle Left 3 View XRAY In Process Unspecified. EDMS 21:07 Provided Education on: POC. Verbalized understanding.. me1 21:07 Patient did not have IV access during this emergency room visit. me1 Administered Medications: 18:45 Drug: Acetaminophen PO 1000 mg Route: PO; ld1 Medication: 18:29 VIS not applicable for this client. ld1 Outcome: 20:24 Discharge ordered by MD. rt 21:07 Discharged to home via wheelchair, with family. me1 21:07 Condition: stable 21:07 Discharge instructions given to patient, Instructed on discharge instructions, follow up and referral plans. medication usage, Demonstrated understanding of instructions, follow-up care, medications, Prescriptions given X 1. 21:45 Patient left the ED. jb4 Signatures: Dispatcher [employer] Johnnie Perry, RN RN jb4 Katherin Gambino, RN RN ld1 Ashish Morales MD MD rt Cary Aparicio, RN RN me1
--- NOTE | 2023-06-14 20:24 | EDPHYS ---
Physician Documentation [facility] Name: Radha Bentley Age: 82 yrs Sex: Female : 1940 Arrival Date: 06/14/2023 Time: 18:24 Bed 6 Private MD: ED Physician Ashish Morales HPI: 06/14 20:27 This 82 yrs old Female presents to ER via EMS with complaints of Fall Injury. rt 20:27 Patient presents to the ED with mechanical fall. Patient does state that she has had an rt left ankle sprain, states that it gave out on her causing her to fall when she bent over. She did hit her head. Denies loss of consciousness. Denies preceding symptoms including syncope. Denies chest pain. The patient states that her left ankle is hurting more but worse than what it has been. Symptoms are moderate in severity, no other aggravating or alleviating factors.. Historical: - Allergies: 18:27 Avelox; ld1 18:27 Band-aid adhesive; ld1 - PMHx: 18:27 ADD/ADHD; Hypertension; kidney disease; COPD; Hypothyroidism; Heart Murmur; ld1 Hyperlipidemia; - PSHx: 18:27 bilateral knee replacement; breast reduction; Cholecystectomy; Shoulder replacment; ld1 - Immunization history:: Adult Immunizations. - Social history:: Smoking status: Patient denies any tobacco usage or history of. - Family history:: not pertinent. ROS: 20:27 Constitutional: Negative for fever, chills, and weight loss, Cardiovascular: Negative rt for chest pain, palpitations, and edema, Respiratory: Negative for shortness of breath, cough, wheezing, and pleuritic chest pain, Abdomen/GI: Negative for abdominal pain, nausea, vomiting, diarrhea, and constipation, Psych: Negative for depression, anxiety, suicide ideation, homicidal ideation, and hallucinations. 20:27 MS/extremity: Positive for pain, swelling. 20:27 Neuro: Positive for headache, Negative for loss of consciousness. Exam: 20:27 Constitutional: This is a well developed, well nourished patient who is awake, alert, rt and in no acute distress. Chest/axilla: Normal chest wall appearance and motion. Nontender with no deformity. No lesions are appreciated. Cardiovascular: Regular rate and rhythm with a normal S1 and S2. No gallops, murmurs, or rubs. Normal PMI, no JVD. No pulse deficits. Respiratory: Lungs have equal breath sounds bilaterally, clear to auscultation and percussion. No rales, rhonchi or wheezes noted. No increased work of breathing, no retractions or nasal flaring. Abdomen/GI: Soft, non-tender, with normal bowel sounds. No distension or tympany. No guarding or rebound. No evidence of tenderness throughout. Skin: Warm, dry with normal turgor. Normal color with no rashes, no lesions, and no evidence of cellulitis. Neuro: Awake and alert, GCS 15, oriented to person, place, time, and situation. Cranial nerves II-XII grossly intact. Motor strength 5/5 in all extremities. Sensory grossly intact. Cerebellar exam normal. Normal gait. Psych: Awake, alert, with orientation to person, place and time. Behavior, mood, and affect are within normal limits. 20:27 Head/face: Supraorbital contusion noted on the right side, no other external evidence of trauma. 20:27 Neck: No posterior cervical midline tenderness, no step-off. 20:27 Musculoskeletal/extremity: Mild swelling and tenderness to the lateral medial malleolus of the left ankle, pulses, motor, sensation intact. Vital Signs: 18:26 BP 151 / 101; Pulse 64; Resp 18; Temp 97.6(O); Pulse Ox 100% on R/A; Weight 81.19 kg; ld1 Height 5 ft. 4 in. ; Pain 6/10; 20:12 BP 140 / 52; Pulse 70; Resp 16; Pulse Ox 99% ; jb4 21:07 BP 122 / 85; Pulse 65; Resp 18; Pulse Ox 97% on R/A; me1 18:26 Body Mass Index 30.72 (81.19 kg, 162.56 cm) ld1 18:26 Pain Scale: Adult ld1 MDM: 18:28 Patient medically screened. rt 20:27 Differential diagnosis: closed head injury, contusion, fracture. Data reviewed: vital rt signs, nurses notes, radiologic studies. Independent interpretation of the following test(s) in the Emergency Department CT Scan: My interpretation is No hemorrhage seen on interpretation CT scan. Test considered but Not performed: EKG: Denies loss of consciousness or syncope, EKG, labs not needed.. Care significantly affected by the following chronic conditions: Chronic Kidney Disease. Counseling: I had a detailed discussion with the patient and/or guardian regarding the historical points, exam findings, and any diagnostic results supporting the discharge/admit diagnosis, radiology results, the need for outpatient follow up, to return to the emergency department if symptoms worsen or persist or if there are any questions or concerns that arise at home. 06/14 18:33 Order name: CT Head C Spine; Complete Time: 19:12 rt 06/14 19:31 Order name: Ankle Left 3 View XRAY; Complete Time: 20:12 rt 06/14 20:22 Order name: Misc. Order: Boot to left foot; Complete Time: 21:22 rt Administered Medications: 18:45 Drug: Acetaminophen PO 1000 mg Route: PO; ld1 Disposition Summary: 06/14/23 20:24 Discharge Ordered Location: Home rt Problem: new rt Symptoms: have improved rt Condition: Stable rt Diagnosis - Closed head injury rt - Avulsion fracture to left lateral malleolus rt Followup: rt - With: Private Physician - When: 2 - 3 days - Reason: Discharge Instructions: - Discharge Summary Sheet rt - Head Injury, Adult rt - Avulsion Fracture of the Foot rt Forms: - Medication Reconciliation Form rt - Thank You Letter rt - Antibiotic Education rt - Prescription Opioid Use rt - Patient Portal Instructions rt - Leadership Thank You Letter rt Prescriptions: - Cyclobenzaprine 5 mg Oral Tablet - take 1 tablet by ORAL route 3 times per day As needed; 15 tablet; Refills: 0, rt Product Selection Permitted Signatures: Dispatcher [employer] Katherin Ahumada RN RN ld1 Ashish Morales MD MD rt
[2023-06-14 22:06] VITALS: TEMP 97.6
[2023-06-14 22:08] VITALS: BP 122/85; O2SAT 97
== END 2023-06-14 21:45 | disposition home or self-care (01) ==
LOC: ER 18:24
DX: S00.83XA Contusion of other part of head, initial encounter (principal); S82.62XA Displaced fracture of lateral malleolus of left fibula, initial encounter for closed fracture; I12.9 Hypertensive chronic kidney disease with stage 1 through stage 4 chronic kidney disease, or unspecified chronic kidney disease; N18.9 Chronic kidney disease, unspecified; Z88.6 Allergy status to analgesic agent; Z91.048 Other nonmedicinal substance allergy status
CPT/HCPCS: 70450; 72125; 99284

== ENCOUNTER 2023-06-19 16:45 | Inpatient (IN) | payer MEDICARE ==
--- NOTE | 2023-06-19 17:27 | RAD REPORT ---
EXAM DESCRIPTION: RAD - Chest Single View - 06/19/2023 5:17 pm CLINICAL HISTORY: MAS Chest pain. COMPARISON: Chest Pa And Lat (2 Views) dated 05/03/2023; Chest Single View dated 04/13/2023; Chest Sing le View dated 03/05/2023; Chest Single View dated 01/20/2023 FINDINGS: Portable technique limits examination quality. Mild interstitial pulmonary edema. The heart is moderately enlarged in size. No displaced fractures. IMPRESSION: Mild CHF.
[2023-06-19 17:28] LABS: Absolute Lymphocytes (CBC) 0.9 K/uL (0.7-4.9); Hematocrit 29.7 % (36.0-45.0); Lymphocytes % 8.3 % (15.3-44.8); MCV 85.8 fL (80-100); MPV 7.4 fL (7.6-11.3); Platelets 227 thou/uL (152-406); RBC Red Blood Cell Count 3.45 M/uL (3.86-4.86)
[2023-06-19 17:33] LABS: Protime INR 1.12
--- NOTE | 2023-06-19 17:46 | RAD REPORT ---
EXAM DESCRIPTION: CT - [id number] - 06/19/2023 5:28 pm CLINICAL HISTORY: Trauma, head and neck injury. AMS;Pain COMPARISON: Head C Spine Mpr Wo Con dated 06/14/2023; Head C Spine Mpr Wo Con dated 11/26/2022; Head C Spine Mpr Wo Con dated 11/21/2022; Head C Spine Mpr Wo Con dated 07/27/2022 TECHNIQUE: Axial 5 mm thick images of the head were obtained. Axial 2 mm thick images of the cervical spine were obtained with sagittal and coronal reconstruction images generated and reviewed. All CT scans are performed using dose optimization technique as appropriate and may include automated exposure control or mA/KV adjustment according to patient size. FINDINGS: CT HEAD WITHOUT CONTRAST: No acute hemorrhage, hydrocephalus or extra-axial collection is identified.Mild generalized brain atr ophy is present with mild periventricular and deep white matter chronic microvascular ischemic change s.No areas of brain edema or midline shift. Bilateral vertebral atherosclerosis. The paranasal sinuses and mastoids are clear.The calvarium is intact. CT CERVICAL SPINE WITHOUT CONTRAST: No fracture or subluxation.Moderate mid and lower cervical degenerative changes.No prevertebral soft tissues swelling is identified. IMPRESSION: No acute intracranial or cervical spine findings.
[2023-06-19 17:47] LABS: Albumin 3.3 g/dL (3.4-5.0); Bilirubin Direct 0.2 mg/dL (0-0.2); Bilirubin Indirect, Calculated 0.4 mg/dL (0.2-0.8); Bilirubin Total 0.6 mg/dL (0.2-1.0); Magnesium 2.5 mg/dL (1.6-2.4); Potassium 4.5 mEq/L (3.5-5.1); Protein, Total 6.9 g/dL (6.4-8.2)
[2023-06-19 17:49] LABS: Troponin High Sensitivity 80.6 pg/mL (<58.9)
--- OUTSIDE RECORDS SUMMARY | 2023-06-19 18:02 | XMS REPORT | Continuity of Care Document ---
:1940 Author Organization [facility] t Address [address] [place] [address] Care Team Providers Name Role Phone [place] Primary Care Physician Anurag Sanderson Attending Clinician Unavailable [email or web address] Attending Clinician Unavailable Glenys Claros Attending Clinician Deavers_Maria G Attending Clinician Unavailable Alisa Sanders Attending Clinician EMMANUEL VELEZ Attending Clinician Unavailable Emmanuel Velez Attending Clinician PEREZ MORENO Attending Clinician Unavailable Perze Moreno Attending Clinician Doctor Unassigned, [place] Attending Clinician Unavailable Allegra Laura Attending Clinician CARLY SINCLAIR Attending Clinician Unavailable Carly Sinclair DO Attending Clinician Canalkim_Keesha Attending Clinician Unavailable Jeffrey Garcia Attending Clinician Olivia-Mbayo_A_AH Attending Clinician Unavailable Caitlyn Jerez Attending Clinician [phone] Vincent Soni Attending Clinician Sariah Becerra Attending [...] Number Effective Date Expiration Date [id number] [id number] 2019 CLASSIC/VALUE 00:00:00 [facility] 2020 (MEDICARE 00:00:00 REPLACEMENT HMO) [employer] [facility] [place] - [id number] 2019 AG (MEDICARE 00:00:00 REPLACEMENT/ADVANTA GE - HMO) Problems Condition Condition Condition Status Onset Resolution Last Treating Co mments Source Name Details Category Date Date Treatment Clinician Date SUBARACHMO SUBARACHM Diagnosis Active 2022-12-11 Memoria ID OID - 21:45:00 l HEMORRHAGE HEMORRHAGE 23:05: He rmann Active 00 11/25/2022 [facility] Acute Acute Diagnosis Active 2022-11-25 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: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 00 (disorder) (disorder) Active 11/22/2022 Diagnosis 11/25/2022 [facility] SUBARACHNO SUBARACHN Diagnosis Active 2022-11-23 Memoria ID OID 2- 15:38:00 l HEMORRHAGE HEMORRHAGE 00:00: He rmann Active 00 11/20/2022 [facility] FALL FROM FALL FROM Diagnosis Active 2019-102020-09-16 Memoria STANDING STANDING 2- 21:55:00 l Active 00:00: Raul 09/04/2020 00 [facility] S/P FALL, S/P Diagnosis Active 2019-102020-09-05 Memoria FRACTURED FALL, 2- 00:45:00 l RIGHT FRACTURED 00:00: Raul WRIST, RIGHT 00 HEAD HE WRIST, HEAD HE Active 09/04/2020 [facility] Traumatic Traumatic Problem 2022-12-04 Memoria subdural subdural 08:08:28 l hemorrhage hemorrhage He rmann with loss with loss of of consciousn consciousn ess status ess status unknown, unknown, initial initial encounter encounter 12/04/2022 [facility] Intracrani Intracran Diagnosis 2022-12-02 Memoria al injury ial injury 04:21:54 l with loss with loss Herm bernie of of consciousn consciousn ess ess (disorder) (disorder) Diagnosis 12/02/2022 [facility] 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 Francisco zhang stenosis stenosis 08:08:28 l in in [place] cervical cervical region region (disorder) (disorder) Active Problem 12/04/2022 [facility] TRAUM TRAUM Diagnosis Active 2022-12-11 [facility] oria SUBDR HEM SUBDR HEM 21:45:00 l WITH LOC WITH LOC Ajay n STATUS STATUS UNKNOWN, UNKNOWN, Active [facility] Hypertensi Problem Active 2022-12-04 Keesha finch ve Hypertensi 08:08:28 l disorder, ve [place] systemic disorder, arterial systemic (disorder) arterial (disorder) Active Problem 12/04/2022 [facility] Hyperlipid Hyperlipi Problem Active 2022-12-04 Memoria emia demia 08:08:28 l (disorder) (disorder) He ann Active Problem 12/04/2022 [facility] Hypothyroi Hypothyro Problem Active 2022-12-04 Memoria dism idism 08:08:28 l (disorder) (disorder) He rmann Active Problem 12/04/2022 [facility] Memory Memory Problem Active 2022-12-04 [facility] oria impairment impairment 08:08:28 l (finding) (finding) Herm bernie Active Problem 12/04/2022 [facility] Morbid Morbid Problem Active 2022-12-04 [facility] oria obesity obesity 08:08:28 l (disorder) (disorder) He rmann Active Problem 12/04/2022 [facility] Recurrent Recurrent Problem Active 2022-12-04 Memoria falls falls 08:08:28 l (finding) (finding) Herm bernie Active Problem 12/04/2022 [facility] Transient Transient Problem Active 2022-12-04 Memoria ischemic ischemic 08:08:28 l attack attack [place] (disorder) (disorder) Active Problem 12/04/2022 [facility] Tremor Tremor Problem Active 2022-12-04 Jose Francisco zhang (finding) (finding) 08:08:28 l Active [place] Problem 12/04/2022 [facility] 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-04 Me moria kidney kidney 08:08:28 l disease disease [place] (disorder) (disorder) Active Problem 12/04/2022 [facility] 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-04 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:08:28 l e lung e lung [place] disease disease (disorder) (disorder) Active Problem 12/04/2022 [facility] 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 08:08:28 l (disorder) (disorder) He rmann Active Problem 12/04/2022 [facility] Essential Essential Problem Active 2022-12-04 Memoria tremor tremor 08:08:28 l (disorder) (disorder) He rmann Active Problem 12/04/2022 [facility] UNSPECIFIE UNSPECIFI Diagnosis Active 2020-09-16 Memoria D FALL, ED FALL, 21:55:00 l INITIAL INITIAL [place] ENCOUNTER ENCOUNTER Active [facility] [id number] 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 [facility] [id number] Arthritis Problem Com mon of hand Spirit - [facility] History of Past Illness Condition Condition Condition Status Onset Resolution Last Treating Co mments Source Name Details Category Date Date Treatment Clinician Date Spinal Spinal Problem 2022-2022-12-04 2022-12-04 Memoria stenosis, stenosis, 3- 08:08:28 08:08:28 l cervical cervical 16:54: Ajay n region region 00 11/29/2022 12/04/2022 [facility] Repeated Repeated Problem 2022-12-04 2022-12-04 Memoria falls falls 3- 08:08:28 08:08:28 l 11/29/2022 16:45: Ajay gorman 12/04/2022 00 [facility] Chronic Chronic Problem 2022-11-27 2022-11-27 Memoria kidney kidney - 10:42:07 10:42:07 l disease, disease, 19:17: Ajay gorman unspecifie unspecifie 00 d d 11/22/2022 11/27/2022 [facility] Allergies, Adverse Reactions, Alerts Allergy Allergy Status Severity Reaction(s) Onset Inactive Treating Comm ents Source Name Type Date Date Clinician ADHESIVE DRUG Active Med Rash Univers TAPE-DEBBY 8-30 ity of ICONES 00:00: [place] [address] [facility] MOXIFLOX DRUG Active Med Rash Univers ACIN HCL INGREDI 8-30 ity of 00:00: [place] [address] [facility] Adhesive Propensi Active Rash Univer s Tape-Debby ty to 8-30 ity of icones adverse 00:00: [place] reaction 00 Medical s to Branch drug Moxiflox Propensi Active Rash Univer s acin Hcl ty to 8-30 ity of adverse 00:00: [place] reaction 00 Medical s to Branch drug moxiflox DA Active [facility] acin HCl 2-15 West 00:00: [address] BANDAIDS DA Active [place] [facility] ADHESIVE 2-[address] [place] 00:00: [address] Avelox Avelox Active [place]^Mild Memoria l [place] Avelox Allergy Active Rash [facility]oted to Medical substanc Group e Social History Social Habit Start Date Stop Date Quantity Comments Source ASSERTION [facility] Alcohol Comment Occasional [facility] Drinker [facility] History of Common Spirit - Tobacco Use [facility] Sex Assigned At Common Sp cristian - [facility] Alcohol intake 2022-08-10 2022-08-10 0 /d University of 00:00:00 00:00:00 [facility] Exposure to 2022-07-26 2022-08-05 Not sure [facility] SARS-CoV-2 00:00:00 12:21:00 [facility] (event) Branch Social History 2020-09-05 2020-09-05 [facility] H ermann 14:31:45 14:31:45 Tobacco use and 2020-06-28 2020-06-28 Never used Universit y of exposure 00:00:00 00:00:00 [facility] Smoking Status Start Date Stop Date Source Former Smoker 2022-11-18 00:00:00 2022-11-18 00:00:00 Common S pirit - [facility] Ce nter Never smoked tobacco [facility] Medications Ordered Filled Start Stop Current Ordering Indication Dosage Frequency Signature Comments Components Source Medication Medication Date Date Medication? Clinician (SIG) Name Name valproic Yes 500 mg = 2 Mem oria acid 250 mg 3-01 cap, PO, l oral 16:43: Q8H, # 30 Raul capsule(Dep 00 cap, 0 ekene) Refill(s), Pharmacy: [id number], 149.86, cm, 11/27/22 8:13:00 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, Height, 86.364, kg, 11/27/22 8:13:00 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, Weight Tylenol 0 No 1 tab, PO, Jose Francisco zhang with 3-01 Q6H, PRN l Codeine #3 16:43: Pain Score H ermann oral tablet 00 7-10, X 3 day, # 12 tab, 0 Refill(s), [facility]: [id number], 149.86, cm, 11/27/22 8:13:00 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, Height, 86.364, kg, 11/27/22 8:13:00 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, Weight valproic Yes 500 mg = 2 Mem oria acid 250 mg 3-01 cap, PO, l oral 16:43: Q8H, # 30 [place] capsule(Dep 00 cap, 0 ekene) Refill(s), Pharmacy: [id number], 149.86, cm, 11/27/22 8:13:00 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, Height, 86.364, kg, 11/27/22 8:13:00 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, Weight Tylenol 2022-0 No 1 tab, PO, Jose Francisco zhang with 3-01 Q6H, PRN l Codeine #3 16:43: Pain Score H ermann oral tablet 00 7-10, X 3 day, # 12 tab, 0 Refill(s), [facility]acy: [id number], 149.86, cm, 11/27/22 8:13:00 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, Height, 86.364, kg, 11/27/22 8:13:00 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, Weight valproic 2022-0 Yes 500 mg = 2 Mem oria acid 250 mg 3-01 cap, PO, l oral 16:43: Q8H, # 30 Raul capsule(Dep 00 cap, 0 ekene) Refill(s), Pharmacy: [id number], 149.86, cm, 11/27/22 8:13:00 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, Height, 86.364, kg, 11/27/22 8:13:00 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, Weight Tylenol 2022-0 No 1 tab, PO, Jose Francisco zhang with 3-01 Q6H, PRN l Codeine #3 16:43: Pain Score H ermann oral tablet 00 7-10, X 3 day, # 12 tab, 0 Refill(s), [facility]acy: [id number], 149.86, cm, 11/27/22 8:13:00 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, Height, 86.364, kg, 11/27/22 8:13:00 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, Weight valproic 2022-0 Yes 500 mg = 2 Mem oria acid 250 mg 3-01 cap, PO, l oral 16:43: Q8H, # 30 Raul capsule(Dep 00 cap, 0 ekene) Refill(s), Pharmacy: [id number], 149.86, cm, 11/27/22 8:13:00 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, Height, 86.364, kg, 11/27/22 8:13:00 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, Weight Tylenol 2022-0 No 1 tab, PO, Jose Francisco zhang with 3-01 Q6H, PRN l Codeine #3 16:43: Pain Score H ermann oral tablet 00 7-10, X 3 day, # 12 tab, 0 Refill(s), Pharmacy: [facility] #[id number], 149.86, cm, 11/27/22 8:13:00 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, Height, 86.364, kg, 11/27/22 8:13:00 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, Weight valproic 2022-0 Yes 500 mg = 2 Mem oria acid 250 mg 3-01 cap, PO, l oral 16:43: Q8H, # 30 [place] capsule(Dep 00 cap, 0 ekene) Refill(s), Pharmacy: [id number], 149.86, cm, 11/27/22 8:13:00 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, Height, 86.364, kg, 11/27/22 8:13:00 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, Weight Tylenol 2022-0 No 1 tab, PO, Jose Francisco zhang with 3-01 Q6H, PRN l Codeine #3 16:43: Pain Score H ermann oral tablet 00 7-10, X 3 day, # 12 tab, 0 Refill(s), Pharmacy: [id number], 149.86, cm, 11/27/22 8:13:00 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, Height, 86.364, kg, 11/27/22 8:13:00 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, Weight valproic 2022-0 Yes 500 mg = 2 Mem oria acid 250 mg 3-01 cap, PO, l oral 16:43: Q8H, # 30 Raul capsule(Dep 00 cap, 0 ekene) Refill(s), Pharmacy: [id number], 149.86, cm, 11/27/22 8:13:00 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, Height, 86.364, kg, 11/27/22 8:13:00 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, Weight Tylenol 2022-0 No 1 tab, PO, Jose Francisco zhang with 3-01 Q6H, PRN l Codeine #3 16:43: Pain Score H ermann oral tablet 00 7-10, X 3 day, # 12 tab, 0 Refill(s), Pharmacy: [id number], 149.86, cm, 11/27/22 8:13:00 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, Height, 86.364, kg, 11/27/22 8:13:00 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, Weight valproic 2022-0 Yes 500 mg = 2 Mem oria acid 250 mg 3-01 cap, PO, l oral 16:43: Q8H, # 30 [place] capsule(Dep 00 cap, 0 ekene) Refill(s), Pharmacy: [id number], 149.86, cm, 11/27/22 8:13:00 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, Height, 86.364, kg, 11/27/22 8:13:00 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, Weight Tylenol 2022-0 No 1 tab, PO, Jose Francisco zhang with 3-01 Q6H, PRN l Codeine #3 16:43: Pain Score H ermann oral tablet 00 7-10, X 3 day, # 12 tab, 0 Refill(s), Pharmacy: [facility] #[id number], 149.86, cm, 11/27/22 8:13:00 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, Height, 86.364, kg, 11/27/22 8:13:00 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, Weight valproic 2022-0 Yes 500 mg = 2 Mem oria acid 250 mg 3-01 cap, PO, l oral 16:43: Q8H, # 30 [place] capsule(Dep 00 cap, 0 ekene) Refill(s), Pharmacy: [id number], 149.86, cm, 11/27/22 8:13:00 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, Height, 86.364, kg, 11/27/22 8:13:00 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, Weight Tylenol 2022-0 No 1 tab, PO, Jose Francisco zhang with 3-01 Q6H, PRN l Codeine #3 16:43: Pain Score H ermann oral tablet 00 7-10, X 3 day, # 12 tab, 0 Refill(s), Pharmacy: [facility] #[id number], 149.86, cm, 11/27/22 8:13:00 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, Height, 86.364, kg, 11/27/22 8:13:00 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, Weight valproic 2022-0 Yes 500 mg = 2 Mem oria acid 250 mg 3-01 cap, PO, l oral 16:43: Q8H, # 30 [place] capsule(Dep 00 cap, 0 ekene) Refill(s), Pharmacy: [id number], 149.86, cm, 11/27/22 8:13:00 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, Height, 86.364, kg, 11/27/22 8:13:00 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, Weight Tylenol 2022-0 No 1 tab, PO, Jose Francisco zhang with 3-01 Q6H, PRN l Codeine #3 16:43: Pain Score H ermann oral tablet 00 7-10, X 3 day, # 12 tab, 0 Refill(s), Pharmacy: [id number], 149.86, cm, 11/27/22 8:13:00 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, Height, 86.364, kg, 11/27/22 8:13:00 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, Weight rOPINIRole 2023-0 Yes 2 mg = 1 Mem oria 2 mg oral 3-01 tab, PO, l tablet 16:42: Q12H, 0 [place] 00 Refill(s) acetaminoph 2023-0 Yes 100.4 F, [...] tab, PO, l tablet 16:42: Q12H, 0 [place] 00 Refill(s) acetaminoph 2023-0 Yes 100.4 F, M emoria en 325 mg 3-01 0 l oral 16:42: Refill(s) Raul tablet. 00 rOPINIRole 2023-0 Yes 2 mg = 1 Mem oria 2 mg oral 3-01 tab, PO, l tablet 16:42: Q12H, 0 [place] 00 Refill(s) acetaminoph 2023-0 Yes 100.4 F, M emoria en 325 mg 3-01 0 l oral 16:42: Refill(s) Raul tablet. 00 rOPINIRole 2023-0 Yes 2 mg = 1 Mem oria 2 mg oral 3-01 tab, PO, l tablet 16:42: Q12H, 0 [place] 00 Refill(s) acetaminoph 2023-0 Yes 100.4 F, M emoria en 325 mg 3-01 0 l oral 16:42: Refill(s) [place] tablet. 00 rOPINIRole 2023-0 Yes 2 mg = 1 Mem oria 2 mg oral 3-01 tab, PO, l tablet 16:42: Q12H, 0 [place] 00 Refill(s) acetaminoph 2023-0 Yes 100.4 F, M emoria en 325 mg 3-01 0 l oral 16:42: Refill(s) Raul tablet. 00 rOPINIRole 2023-0 Yes 2 mg = 1 Mem oria 2 mg oral 3-01 tab, PO, l tablet 16:42: Q12H, 0 [place] 00 Refill(s) acetaminoph 2023-0 Yes 100.4 F, M emoria en 325 mg 3-01 0 l oral 16:42: Refill(s) Raul tablet. 00 rOPINIRole 2023-0 Yes 2 mg = 1 Mem oria 2 mg oral 3-01 tab, PO, l tablet 16:42: Q12H, 0 Raul 00 Refill(s) acetaminoph 2023-0 Yes 100.4 F, M emoria en 325 mg 3-01 0 l oral 16:42: Refill(s) Raul tablet. 00 donepezil 2022-0 No 10 mg, 2 Jose Francisco zhang 2-28 tab, l 15:00: Route: PO, Raul Drug form: TAB, Daily, Dosing Weight 86.364, kg, Start date: 11/28/22 9:00:00 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, Duration: 30 day, Stop date: 12/27/22 9:00:00 CDT, 0 ferrous 3-0 No Notes: Memoria sulfate 2-28 Give with l 15:00: food. "Do Not Crush" NIFEdipine 3-0 No 30 mg, 1 Mem oria 30 mg oral 2-28 tab, l tablet, 15:00: Route: PO, Herm bernie extended Drug form: release ERTAB, Daily, Dosing Weight 86.364, kg, Start date: 11/28/22 9:00:00 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, Duration: 30 day, Stop date: 12/27/22 9:00:00 CDT, 0 donepezil 2023-0 No 10 mg, 2 Jose Francisco zhang 2-28 tab, l 15:00: Route: PO, [place] 00 Drug form: TAB, Daily, Dosing Weight 86.364, kg, Start date: 11/28/22 9:00:00 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, Duration: 30 day, Stop date: 12/27/22 9:00:00 CDT, 0 ferrous 2023-0 No Notes: Memoria sulfate 2-28 Give with l 15:00: food. "Do Not Crush" NIFEdipine 2023-0 No 30 mg, 1 Mem oria 30 mg oral 2-28 tab, l tablet, 15:00: Route: PO, Herm bernie extended Drug form: release ERTAB, Daily, Dosing Weight 86.364, kg, Start date: 11/28/22 9:00:00 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, Duration: 30 day, Stop date: 12/27/22 9:00:00 CDT, 0 donepezil 2023-0 No 10 mg, 2 Jose Francisco zhang 2-28 tab, l 15:00: Route: PO, [place] 00 Drug form: TAB, Daily, Dosing Weight 86.364, kg, Start date: 11/28/22 9:00:00 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, Duration: 30 day, Stop date: 12/27/22 9:00:00 CDT, 0 ferrous 2023-0 No Notes: Memoria sulfate 2-28 Give with l 15:00: food. "Do Not Crush" NIFEdipine 2023-0 No 30 mg, 1 Mem oria 30 mg oral 2-28 tab, l tablet, 15:00: Route: PO, Herm bernie extended 00 Drug form: release ERTAB, Daily, Dosing Weight 86.364, kg, Start date: 11/28/22 9:00:00 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, Duration: 30 day, Stop date: 12/27/22 9:00:00 CDT, 0 donepezil 2023-0 No 10 mg, 2 Jose Francisco zhang 2-28 tab, l 15:00: Route: PO, [place] 00 Drug form: TAB, Daily, Dosing Weight 86.364, kg, Start date: 11/28/22 9:00:00 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, Duration: 30 day, Stop date: 12/27/22 9:00:00 CDT, 0 ferrous 2023-0 No Notes: Memoria sulfate 2-28 Give with l 15:00: food. "Do Not Crush" NIFEdipine 2023-0 No 30 mg, 1 Mem oria 30 mg oral 2-28 tab, l tablet, 15:00: Route: PO, Herm bernie extended 00 Drug form: release ERTAB, Daily, Dosing Weight 86.364, kg, Start date: 11/28/22 9:00:00 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, Duration: 30 day, Stop date: 12/27/22 9:00:00 CDT, 0 donepezil 2023-0 No 10 mg, 2 Jose Francisco zhang 2-28 tab, l 15:00: Route: PO, [place] Drug form: TAB, Daily, Dosing Weight 86.364, kg, Start date: 11/28/22 9:00:00 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, Duration: 30 day, Stop date: 12/27/22 9:00:00 CDT, 0 ferrous 2023-0 No Notes: Memoria sulfate 2-28 Give with l 15:00: food. "Do Not Crush" NIFEdipine 2023-0 No 30 mg, 1 Mem oria 30 mg oral 2-28 tab, l tablet, 15:00: Route: PO, [place] b[place] extended Drug form: release ERTAB, Daily, Dosing Weight 86.364, kg, Start date: 11/28/22 9:00:00 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, Duration: 30 day, Stop date: 12/27/22 9:00:00 CDT, 0 donepezil 2023-0 No 10 mg, 2 Jose Francisco zhang 2-28 tab, l 15:00: Route: PO, [place] 00 Drug form: TAB, Daily, Dosing Weight 86.364, kg, Start date: 11/28/22 9:00:00 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, Duration: 30 day, Stop date: 12/27/22 9:00:00 CDT, 0 ferrous 2023-0 No Notes: Memoria sulfate 2-28 Give with l 15:00: food. "Do Not Crush" NIFEdipine 2023-0 No 30 mg, 1 Mem oria 30 mg oral 2-28 tab, l tablet, 15:00: Route: PO, Herm bernie extended 00 Drug form: release ERTAB, Daily, Dosing Weight 86.364, kg, Start date: 11/28/22 9:00:00 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, Duration: 30 day, Stop date: 12/27/22 9:00:00 CDT, 0 donepezil 2023-0 No 10 mg, 2 Jose Francisco zhang 2-28 tab, l 15:00: Route: PO, [place] 00 Drug form: TAB, Daily, Dosing Weight 86.364, kg, Start date: 11/28/22 9:00:00 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, Duration: 30 day, Stop date: 12/27/22 9:00:00 CDT, 0 ferrous 2023-0 No Notes: Memoria sulfate 2-28 Give with l 15:00: food. "Do Not Crush" NIFEdipine 2023-0 No 30 mg, 1 Mem oria 30 mg oral 2-28 tab, l tablet, 15:00: Route: PO, Herm bernie extended Drug form: release ERTAB, Daily, Dosing Weight 86.364, kg, Start date: 11/28/22 9:00:00 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, Duration: 30 day, Stop date: 12/27/22 9:00:00 CDT, 0 donepezil 2023-0 No 10 mg, 2 Jose Francisco zhang 2-28 tab, l 15:00: Route: PO, [place] 00 Drug form: TAB, Daily, Dosing Weight 86.364, kg, Start date: 11/28/22 9:00:00 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, Duration: 30 day, Stop date: 12/27/22 9:00:00 CDT, 0 ferrous 2023-0 No Notes: Memoria sulfate 2-28 Give with l 15:00: food. "Do Not Crush" NIFEdipine 2023-0 No 30 mg, 1 Mem oria 30 mg oral 2-28 tab, l tablet, 15:00: Route: PO, Herm bernie extended Drug form: release ERTAB, Daily, Dosing Weight 86.364, kg, Start date: 11/28/22 9:00:00 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, Duration: 30 day, Stop date: 12/27/22 9:00:00 CDT, 0 donepezil 2023-0 No 10 mg, 2 Jose Francisco zhang 2-28 tab, l 15:00: Route: PO, [place] Drug form: TAB, Daily, Dosing Weight 86.364, kg, Start date: 11/28/22 9:00:00 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, Duration: 30 day, Stop date: 12/27/22 9:00:00 CDT, 0 ferrous 2022-0 No Notes: Memoria sulfate 2-28 Give with l 15:00: food. "Do Not Crush" NIFEdipine 2022-0 No 30 mg, 1 Mem oria 30 mg oral 2-28 tab, l tablet, 15:00: Route: PO, Herm bernie extended 00 Drug form: release ERTAB, Daily, Dosing Weight 86.364, kg, Start date: 11/28/22 9:00:00 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, Duration: 30 day, Stop date: 12/27/22 9:00:00 [...] ne 2-28 microgram, l 12:00: 1 tab, [place] Route: PO, Drug form: TAB, Q6AM, Dosing Weight 86.364, kg, Start date: 11/28/22 6:00:00 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, Duration: 30 day, Stop date: 12/27/22 6:00:00 CDT, 0 levothyroxi 2023-0 No 112 Memori a ne 2-28 microgram, l 12:00: 1 tab, Raul 00 Route: PO, Drug form: TAB, Q6AM, Dosing Weight 86.364, kg, Start date: 11/28/22 6:00:00 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, Duration: 30 day, Stop date: 12/27/22 6:00:00 CDT, 0 levothyroxi 2023-0 No 112 Memori a ne 2-28 microgram, l 12:00: 1 tab, [place] 00 Route: PO, Drug form: TAB, Q6AM, Dosing Weight 86.364, kg, Start date: 11/28/22 6:00:00 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, Duration: 30 day, Stop date: 12/27/22 6:00:00 CDT, 0 levothyroxi 2023-0 No 112 Memori a ne 2-28 microgram, l 12:00: 1 tab, [place] 00 Route: PO, Drug form: TAB, Q6AM, Dosing Weight 86.364, kg, Start date: 11/28/22 6:00:00 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, Duration: 30 day, Stop date: 12/27/22 6:00:00 CDT, 0 levothyroxi 2023-0 No 112 Memori a ne 2-28 microgram, l 12:00: 1 tab, Raul 00 Route: PO, Drug form: TAB, Q6AM, Dosing Weight 86.364, kg, Start date: 11/28/22 6:00:00 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, Duration: 30 day, Stop date: 12/27/22 6:00:00 CDT, 0 levothyroxi 2023-0 No 112 Memori a ne 2-28 microgram, l 12:00: 1 tab, [place] 00 Route: PO, Drug form: TAB, Q6AM, Dosing Weight 86.364, kg, Start date: 11/28/22 6:00:00 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, Duration: 30 day, Stop date: 12/27/22 6:00:00 CDT, 0 levothyroxi 2023-0 No 112 Memori a ne 2-28 microgram, l 12:00: 1 tab, Raul 00 Route: PO, Drug form: TAB, Q6AM, Dosing Weight 86.364, kg, Start date: 11/28/22 6:00:00 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, Duration: 30 day, Stop date: 12/27/22 6:00:00 CDT, 0 levothyroxi 2022-0 No 112 Memori a ne 2-28 microgram, l 12:00: 1 tab, Route: PO, Drug form: TAB, Q6AM, Dosing Weight 86.364, kg, Start date: 11/28/22 6:00:00 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, Duration: 30 day, Stop date: 12/27/22 6:00:00 CDT, 0 levothyroxi 2022-0 No 112 Memori a ne 2-28 microgram, l 12:00: 1 tab, Route: PO, Drug form: TAB, Q6AM, Dosing Weight 86.364, kg, Start date: 11/28/22 6:00:00 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, Duration: 30 day, Stop date: 12/27/22 6:00:00 CDT, 0 Wellbutrin 0 No 150 mg, 1 Me moria SR 2-28 tab, l 03:00: Route: PO, Drug form: ERTAB, Q12H, Dosing Weight 86.364, kg, 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, Duration: 30 day, Stop date: 12/27/22 9:00:00 [...] Weight 86.364, kg, 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, Duration: 30 day, Stop date: 12/26/22 21:00:00 CDT, 0 primidone 2022-0 No Notes: Memori a 2-28 (Same as: l 03:00: Mysoline) rOPINIRole 2022-0 No Notes: Memor ia 2-28 TIME l 03:00: CRITICAL MEDICATION (Same as: Requip) Wellbutrin 0 No 150 mg, 1 Me moria SR 2-28 tab, l 03:00: Route: PO, Drug form: ERTAB, Q12H, Dosing Weight 86.364, kg, 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, Duration: 30 day, Stop date: 12/27/22 9:00:00 [...] Weight 86.364, kg, 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, Duration: 30 day, Stop date: 12/26/22 21:00:00 CDT, 0 primidone No Notes: Memori a 2-28 (Same as: l 03:00: Mysoline) rOPINIRole No Notes: Memor ia 2-28 TIME l 03:00: CRITICAL MEDICATION (Same as: Requip) Wellbutrin No 150 mg, 1 Me moria SR 2-28 tab, l 03:00: Route: PO, Drug form: ERTAB, Q12H, Dosing Weight 86.364, kg, 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, Duration: 30 day, Stop date: 12/27/22 9:00:00 [...] Weight 86.364, kg, 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, Duration: 30 day, Stop date: 12/26/22 21:00:00 CDT, 0 primidone 2022-0 No Notes: Memori a 2-28 (Same as: l 03:00: Mysoline) rOPINIRole 2022-0 No Notes: Memor ia 2-28 TIME l 03:00: CRITICAL MEDICATION (Same as: Requip) Wellbutrin 0 No 150 mg, 1 Me moria SR 2-28 tab, l 03:00: Route: PO, Drug form: ERTAB, Q12H, Dosing Weight 86.364, kg, 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, Duration: 30 day, Stop date: 12/27/22 9:00:00 [...] Weight 86.364, kg, 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, Duration: 30 day, Stop date: 12/26/22 21:00:00 CDT, 0 primidone 2022-0 No Notes: Memori a 2-28 (Same as: l 03:00: Mysoline) rOPINIRole 2022-0 No Notes: Memor ia 2-28 TIME l 03:00: CRITICAL MEDICATION (Same as: Requip) Wellbutrin 2022-0 No 150 mg, 1 Me moria SR 2-28 tab, l 03:00: Route: PO, Drug form: ERTAB, Q12H, Dosing Weight 86.364, kg, 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, Duration: 30 day, Stop date: 12/27/22 9:00:00 [...] Weight 86.364, kg, 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, Duration: 30 day, Stop date: 12/26/22 21:00:00 CDT, 0 primidone No Notes: Memori a 2-28 (Same as: l 03:00: Mysoline) rOPINIRole No Notes: Memor ia 2-28 TIME l 03:00: CRITICAL MEDICATION (Same as: Requip) Wellbutrin No 150 mg, 1 Me moria SR 2-28 tab, l 03:00: Route: PO, Drug form: ERTAB, Q12H, Dosing Weight 86.364, kg, 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, Duration: 30 day, Stop date: 12/27/22 9:00:00 [...] Weight 86.364, kg, 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, Duration: 30 day, Stop date: 12/26/22 21:00:00 CDT, 0 primidone 2022-0 No Notes: Memori a 2-28 (Same as: l 03:00: Mysoline) rOPINIRole 0 No Notes: Memor ia 2-28 TIME l 03:00: CRITICAL MEDICATION (Same as: Requip) Wellbutrin 0 No 150 mg, 1 Me moria SR 2-28 tab, l 03:00: Route: PO, Drug form: ERTAB, Q12H, Dosing Weight 86.364, kg, 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, Duration: 30 day, Stop date: 12/27/22 9:00:00 [...] Weight 86.364, kg, 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, Duration: 30 day, Stop date: 12/26/22 21:00:00 CDT, 0 primidone 2022-0 No Notes: Memori a 2-28 (Same as: l 03:00: Mysoline) rOPINIRole 0 No Notes: Memor ia 2-28 TIME l 03:00: CRITICAL MEDICATION (Same as: Requip) Wellbutrin 0 No 150 mg, 1 Me moria SR 2-28 tab, l 03:00: Route: PO, Drug form: ERTAB, Q12H, Dosing Weight 86.364, kg, 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, Duration: 30 day, Stop date: 12/27/22 9:00:00 [...] Weight 86.364, kg, 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, Duration: 30 day, Stop date: 12/26/22 21:00:00 CDT, 0 primidone 0 No Notes: Memori a 2-28 (Same as: l 03:00: Mysoline) rOPINIRole 0 No Notes: Memor ia 2-28 TIME l 03:00: CRITICAL MEDICATION (Same as: Requip) rOPINIRole 2022-0 No 4 mg, 1 Jose Francisco zhang 2-27 tab, l 23:00: Route: PO, Drug form: TAB, BID, Dosing Weight 86.364, kg, Start date: 11/27/22 17:00:00 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, Duration: 30 day, Stop date: 12/27/22 9:00:00 CDT pantoprazol 2022-0 No 40 mg, 1 Me moria e 2-27 tab, l 23:00: Route: PO, Drug form: ECTAB, BID, Dosing Weight 86.364, kg, Start date: 11/27/22 17:00:00 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, Duration: 30 day, Stop date: 12/27/22 9:00:00 CDT rOPINIRole 2022-0 No 4 mg, 1 Jose Francisco zhang 2-27 tab, l 23:00: Route: PO, Drug form: TAB, BID, Dosing Weight 86.364, kg, Start date: 11/27/22 17:00:00 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, Duration: 30 day, Stop date: 12/27/22 9:00:00 CDT pantoprazol 2023-0 No 40 mg, 1 Me moria e 2-27 tab, l 23:00: Route: PO, Raul 00 Drug form: ECTAB, BID, Dosing Weight 86.364, kg, Start date: 11/27/22 17:00:00 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, Duration: 30 day, Stop date: 12/27/22 9:00:00 CDT rOPINIRole 2023-0 No 4 mg, 1 Jose Francisco zhang 2-27 tab, l 23:00: Route: PO, Raul 00 Drug form: TAB, BID, Dosing Weight 86.364, kg, Start date: 11/27/22 17:00:00 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, Duration: 30 day, Stop date: 12/27/22 9:00:00 CDT pantoprazol 2023-0 No 40 mg, 1 Me moria e 2-27 tab, l 23:00: Route: PO, Drug form: ECTAB, BID, Dosing Weight 86.364, kg, Start date: 11/27/22 17:00:00 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, Duration: 30 day, Stop date: 12/27/22 9:00:00 CDT rOPINIRole 2023-0 No 4 mg, 1 Jose Francisco zhang 2-27 tab, l 23:00: Route: PO, Drug form: TAB, BID, Dosing Weight 86.364, kg, Start date: 11/27/22 17:00:00 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, Duration: 30 day, Stop date: 12/27/22 9:00:00 CDT pantoprazol 2023-0 No 40 mg, 1 Me moria e 2-27 tab, l 23:00: Route: PO, Drug form: ECTAB, BID, Dosing Weight 86.364, kg, Start date: 11/27/22 17:00:00 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, Duration: 30 day, Stop date: 12/27/22 9:00:00 CDT rOPINIRole 2023-0 No 4 mg, 1 Jose Francisco zhang 2-27 tab, l 23:00: Route: PO, Drug form: TAB, BID, Dosing Weight 86.364, kg, Start date: 11/27/22 17:00:00 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, Duration: 30 day, Stop date: 12/27/22 9:00:00 CDT pantoprazol 2023-0 No 40 mg, 1 Me moria e 2-27 tab, l 23:00: Route: PO, Raul 00 Drug form: ECTAB, BID, Dosing Weight 86.364, kg, Start date: 11/27/22 17:00:00 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, Duration: 30 day, Stop date: 12/27/22 9:00:00 CDT rOPINIRole 2023-0 No 4 mg, 1 Jose Francisco hzang 2-27 tab, l 23:00: Route: PO, Drug form: TAB, BID, Dosing Weight 86.364, kg, Start date: 11/27/22 17:00:00 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, Duration: 30 day, Stop date: 12/27/22 9:00:00 CDT pantoprazol 2023-0 No 40 mg, 1 Me moria e 2-27 tab, l 23:00: Route: PO, Drug form: ECTAB, BID, Dosing Weight 86.364, kg, Start date: 11/27/22 17:00:00 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, Duration: 30 day, Stop date: 12/27/22 9:00:00 CDT rOPINIRole 2023-0 No 4 mg, 1 Jose Francisco zhang 2-27 tab, l 23:00: Route: PO, Drug form: TAB, BID, Dosing Weight 86.364, kg, Start date: 11/27/22 17:00:00 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, Duration: 30 day, Stop date: 12/27/22 9:00:00 CDT pantoprazol 2023-0 No 40 mg, 1 Me moria e 2-27 tab, l 23:00: Route: PO, Drug form: ECTAB, BID, Dosing Weight 86.364, kg, Start date: 11/27/22 17:00:00 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, Duration: 30 day, Stop date: 12/27/22 9:00:00 CDT rOPINIRole 2023-0 No 4 mg, 1 Jose Francisco zhang 2-27 tab, l 23:00: Route: PO, Drug form: TAB, BID, Dosing Weight 86.364, kg, Start date: 11/27/22 17:00:00 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, Duration: 30 day, Stop date: 12/27/22 9:00:00 CDT pantoprazol 2023-0 No 40 mg, 1 Me moria e 2-27 tab, l 23:00: Route: PO, [place] 00 Drug form: ECTAB, BID, Dosing Weight 86.364, kg, Start date: 11/27/22 17:00:00 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, Duration: 30 day, Stop date: 12/27/22 9:00:00 CDT rOPINIRole 2023-0 No 4 mg, 1 Jose Francisco zhang 2-27 tab, l 23:00: Route: PO, Raul 00 Drug form: TAB, BID, Dosing Weight 86.364, kg, Start date: 11/27/22 17:00:00 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, Duration: 30 day, Stop date: 12/27/22 9:00:00 CDT pantoprazol 2023-0 No 40 mg, 1 Me moria e 2-27 tab, l 23:00: Route: PO, Raul 00 Drug form: ECTAB, BID, Dosing Weight 86.364, kg, Start date: 11/27/22 17:00:00 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, Duration: 30 day, Stop date: 12/27/22 9:00:00 CDT valproic 2023-0 No 500 mg, 2 Jose Francisco zhang acid 250 mg 2-27 cap, l oral 22:00: Route: PO, [place] capsule(Dep 00 Drug form: ekene) CAP, Q8H, Dosing Weight 86.364, kg, Start date: 11/27/22 16:00:00 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, Duration: 7 day, Stop date: 12/04/22 8:00:00 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, 0 valproic 2023-0 No 500 mg, 2 Jose Francisco zhang acid 250 mg 2-27 cap, l oral 22:00: Route: PO, Raul capsule(Dep 00 Drug form: ekene) CAP, Q8H, Dosing Weight 86.364, kg, Start date: 11/27/22 16:00:00 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, Duration: 7 day, Stop date: 12/04/22 8:00:00 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, 0 valproic 2023-0 No 500 mg, 2 Jose Francisco zhang acid 250 mg 2-27 cap, l oral 22:00: Route: PO, [place] capsule(Dep 00 Drug form: ekene) CAP, Q8H, Dosing Weight 86.364, kg, Start date: 11/27/22 16:00:00 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, Duration: 7 day, Stop date: 12/04/22 8:00:00 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, 0 valproic 2023-0 No 500 mg, 2 Jose Francisco zhang acid 250 mg 2-27 cap, l oral 22:00: Route: PO, Raul capsule(Dep 00 Drug form: ekene) CAP, Q8H, Dosing Weight 86.364, kg, Start date: 11/27/22 16:00:00 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, Duration: 7 day, Stop date: 12/04/22 8:00:00 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, 0 valproic 2023-0 No 500 mg, 2 Jose Francisco zhang acid 250 mg 2-27 cap, l oral 22:00: Route: PO, Raul capsule(Dep 00 Drug form: ekene) CAP, Q8H, Dosing Weight 86.364, kg, Start date: 11/27/22 16:00:00 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, Duration: 7 day, Stop date: 12/04/22 8:00:00 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, 0 valproic 2023-0 No 500 mg, 2 Jose Francisco zhang acid 250 mg 2-27 cap, l oral 22:00: Route: PO, [place] capsule(Dep 00 Drug form: ekene) CAP, Q8H, Dosing Weight 86.364, kg, Start date: 11/27/22 16:00:00 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, Duration: 7 day, Stop date: 12/04/22 8:00:00 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, 0 valproic 2023-0 No 500 mg, 2 Jose Francisco zhang acid 250 mg 2-27 cap, l oral 22:00: Route: PO, Raul capsule(Dep 00 Drug form: ekene) CAP, Q8H, Dosing Weight 86.364, kg, Start date: 11/27/22 16:00:00 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, Duration: 7 day, Stop date: 12/04/22 8:00:00 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, 0 valproic 2023-0 No 500 mg, 2 Jose Francisco zhang acid 250 mg 2-27 cap, l oral 22:00: Route: PO, Raul capsule(Dep 00 Drug form: ekene) CAP, Q8H, Dosing Weight 86.364, kg, Start date: 11/27/22 16:00:00 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, Duration: 7 day, Stop date: 12/04/22 8:00:00 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, 0 valproic 2023-0 No 500 mg, 2 Jose Francisco zhang acid 250 mg 2-27 cap, l oral 22:00: Route: PO, [place] capsule(Dep 00 Drug form: ekene) CAP, Q8H, Dosing Weight 86.364, kg, Start date: 11/27/22 16:00:00 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, Duration: 7 day, Stop date: 12/04/22 8:00:00 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, 0 gabapentin 2023-0 No 100 mg, 1 Me moria 100 mg oral 2-27 cap, l capsule 17:20: Route: PO, [place] b[place] 00 Drug form: CAP, Daily, Dosing Weight 86.364, kg, Priority: NOW, Start date: 11/27/22 11:20:00 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, Duration: 30 day, Stop date: 12/27/22 9:00:00 CDT, 0 gabapentin 2023-0 No 100 mg, 1 Me moria 100 mg oral 2-27 cap, l capsule 17:20: Route: PO, [place] 00 Drug form: CAP, Daily, Dosing Weight 86.364, kg, Priority: NOW, Start date: 11/27/22 11:20:00 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, Duration: 30 day, Stop date: 12/27/22 9:00:00 CDT, 0 gabapentin 2023-0 No 100 mg, 1 Me moria 100 mg oral 2-27 cap, l capsule 17:20: Route: PO, [place] 00 Drug form: CAP, Daily, Dosing Weight 86.364, kg, Priority: NOW, Start date: 11/27/22 11:20:00 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, Duration: 30 day, Stop date: 12/27/22 9:00:00 CDT, 0 gabapentin 2023-0 No 100 mg, 1 Me moria 100 mg oral 2-27 cap, l capsule 17:20: Route: PO, [place] 00 Drug form: CAP, Daily, Dosing Weight 86.364, kg, Priority: NOW, Start date: 11/27/22 11:20:00 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, Duration: 30 day, Stop date: 12/27/22 9:00:00 CDT, 0 gabapentin 2023-0 No 100 mg, 1 Me moria 100 mg oral 2-27 cap, l capsule 17:20: Route: PO, [place] 00 Drug form: CAP, Daily, Dosing Weight 86.364, kg, Priority: NOW, Start date: 11/27/22 11:20:00 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, Duration: 30 day, Stop date: 12/27/22 9:00:00 CDT, 0 gabapentin 2023-0 No 100 mg, 1 Me moria 100 mg oral 2-27 cap, l capsule 17:20: Route: PO, [place] Drug form: CAP, Daily, Dosing Weight 86.364, kg, Priority: NOW, Start date: 11/27/22 11:20:00 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, Duration: 30 day, Stop date: 12/27/22 9:00:00 CDT, 0 gabapentin 2023-0 No 100 mg, 1 Me moria 100 mg oral 2-27 cap, l capsule 17:20: Route: PO, Herm bern[place] Drug form: CAP, Daily, Dosing Weight 86.364, kg, Priority: NOW, Start date: 11/27/22 11:20:00 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, Duration: 30 day, Stop date: 12/27/22 9:00:00 CDT, 0 gabapentin 2023-0 No 100 mg, 1 Me moria 100 mg oral 2-27 cap, l capsule 17:20: Route: PO, [place] Drug form: CAP, Daily, Dosing Weight 86.364, kg, Priority: NOW, Start date: 11/27/22 11:20:00 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, Duration: 30 day, Stop date: 12/27/22 9:00:00 CDT, 0 gabapentin 2023-0 No 100 mg, 1 Me moria 100 mg oral 2-27 cap, l capsule 17:20: Route: PO, [place] bern[place] Drug form: CAP, Daily, Dosing Weight 86.364, kg, Priority: NOW, Start date: 11/27/22 11:20:00 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, Duration: 30 day, Stop date: 12/27/22 9:00:00 CDT, 0 levETIRAcet No Notes: Jose Francisco zhang am - (Same l 15:00: as:Keppra) docusate No Notes: Memoria - (Same as: l 15:00: Colace) (Do Not Crush) senna No Notes: Memoria 2-27 (Same as: l 15:00: Senokot) [place] 00 Saline No Notes: Memoria Flush 0.9% 2-27 (Same as: l 15:00: BD Raul 00 Posiflush) levETIRAcet No Notes: Jose Francisco zhang am 2-27 (Same l 15:00: as:Keppra) [place] 00 docusate No Notes: Memoria 2-27 (Same as: l 15:00: Colace) Raul 00 (Do Not Crush) senna No Notes: Memoria 2-27 (Same as: l 15:00: Senokot) [place] 00 Saline No Notes: Memoria Flush 0.9% 2-27 (Same as: l 15:00: BD [place] 00 Posiflush) levETIRAcet No Notes: Jose Francisco zhang am 2-27 (Same l 15:00: as:Keppra) Raul 00 docusate No Notes: Memoria 2-27 (Same as: l 15:00: Colace) [place] 00 (Do Not Crush) senna No Notes: Memoria 2-27 (Same as: l 15:00: Senokot) [place] 00 Saline No Notes: Memoria Flush 0.9% [...] Memoria 2-27 (Same as: l 15:00: Senokot) [place] 00 Saline No Notes: Memoria Flush 0.9% 2-27 (Same as: l 15:00: BD [place] 00 Posiflush) levETIRAcet No Notes: Jose Francisco zhang am 2-27 (Same l 15:00: as:Keppra) [place] 00 docusate No Notes: Memoria 2-27 (Same as: l 15:00: Colace) Raul 00 (Do Not Crush) senna No Notes: Memoria 2-27 (Same as: l 15:00: Senokot) [place] 00 Saline No Notes: Memoria Flush 0.9% 2-27 (Same as: l 15:00: BD [place] 00 Posiflush) levETIRAcet No Notes: Jose Francisco zhang am 2-27 (Same l 15:00: as:Keppra) Ra[place] 00 docusate No Notes: Memoria 2-27 (Same as: l 15:00: Colace) [place] 00 (Do Not Crush) senna No Notes: Memoria 2-27 (Same as: l 15:00: Senokot) [place] 00 Saline No Notes: Memoria Flush 0.9% 2-27 (Same as: l 15:00: BD [place] 00 Posiflush) levETIRAcet No Notes: Jose Francisco zhang am 2-27 (Same l 15:00: as:Keppra) [place] 00 docusate No Notes: Memoria 2-27 (Same as: l 15:00: Colace) [place] 00 (Do Not Crush) senna No Notes: Memoria 2-27 (Same as: l 15:00: Senokot) [place] 00 Saline No Notes: Memoria Flush 0.9% 2-27 (Same as: l 15:00: BD Posiflush) levETIRAcet No Notes: Jose Francisco zhang am 2- (Same l 15:00: as:Keppra) docusate No Notes: Memoria - (Same as: l 15:00: Colace) [place] 00 (Do Not Crush) senna No Notes: Memoria 2- (Same as: l 15:00: Senokot) Saline No Notes: Memoria Flush 0.9% 11-27 (Same as: l 15:00: BD Posiflush) acetaminoph No Notes: Do M emoria en 11-27 not exceed l 09:01: 4 gm/day. [place] 00 (Same as: Tylenol) bisacodyl No Notes: Memori a - (Same As: l 09:01: Dulcolax, [place]isco-Lax) ondansetron No Notes: Jose Francisco zhang - (Same as: l 09:01: Zofran) MEDICATION WASTE Product Size: 4 mg Product Wasted: ___ mg hydrALAZINE No Notes: Jose Francisco zhang - (Same as: l 09:01: Apresoline ) Push over 5 minutes labetalol No 10 mg, 2 Jose Francisco zhang 2-27 mL, Route: l 09:01: IVP, Drug form: INJ, Q15Min, Dosing Weight 86.364, kg, Start date: 11/27/22 3:01:00 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, Duration: 3 doses or times, Stop date: 11/27/22 3:31:00 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, 0 Tylenol No Notes: Do Memor ia with 2-27 not exceed l Codeine #3 09:01: 4gm/day of H ermann oral tablet 00 acetaminop hen. (Same as: Tylenol with Codeine # 3) tramadol No Notes: Not Mem oria 2-27 to exceed l 09:01: 400mg/day. Raul 00 (Same As: Ultram) Saline No Notes: Memoria Flush 0.9% 2-27 (Same as: l 09:01: BD Posiflush) Insulin [...] 2-27 not exceed l 09:01: 4 gm/day. (Same [...] Weight 86.364, kg, Start date: 11/27/22 3:01:00 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, Duration: 3 doses or times, Stop date: 11/27/22 3:31:00 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, 0 Tylenol No Notes: Do Memor ia with 2-27 not exceed l Codeine #3 09:01: 4gm/day of H ermann oral tablet 00 acetaminop hen. (Same as: Tylenol with Codeine # 3) tramadol No Notes: Not Mem oria 2-27 to exceed l 09:01: 400mg/day. [place] 00 (Same As: Ultram) Saline No Notes: Memoria Flush 0.9% 2-27 (Same as: l 09:: BD Raul 00 Posiflush) Insulin No Notes: Memoria regular 2-27 (Same as: l 09:: Humulin R) [place] 00 Roll in palms of hands gently; Do not shake vigorously . WASTE: F/P - Black; E - Municipal Trash Bin Stable for 31 days at room temperatur e Expires in days from ____Date acetaminoph No Notes: Do M emoria en - not exceed l 09:01: 4 gm/day. Raul (Same as: Tylenol) bisacodyl No Notes: Memori a 2-27 (Same As: l 09:: Dulcolax, [place] 00 Bisco-Lax) ondansetron No Notes: Jose Francisco [...] Weight 86.364, kg, Start date: 11/27/22 3:01:00 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, Duration: 3 doses or times, Stop date: 11/27/22 3:31:00 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, 0 Tylenol No Notes: Do Memor ia with 2-27 not exceed l Codeine #3 09:01: 4gm/day of H ermann oral tablet 00 acetaminop hen. (Same as: Tylenol with Codeine # 3) tramadol No Notes: Not Mem oria 2-27 to exceed l 09:01: 400mg/day. [place] 00 (Same As: Ultram) Saline No Notes: Memoria Flush 0.9% 2-27 (Same as: l 09:01: BD [place] Posiflush) Insulin No Notes: Memoria regular - [...] - (Same As: l 09:: Dulcolax, Raul Bisco-Lax) [...] Weight 86.364, kg, Start date: 11/27/22 3:01:00 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, Duration: 3 doses or times, Stop date: 11/27/22 3:31:00 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, 0 Tylenol No Notes: Do Memor ia with 2-27 not exceed l Codeine #3 09:01: 4gm/day of H ermann oral tablet 00 acetaminop hen. (Same as: Tylenol with Codeine # 3) tramadol No Notes: Not Mem oria 2-27 to exceed l 09:01: 400mg/day. [place] 00 (Same As: Ultram) Saline No Notes: Memoria Flush 0.9% 11-27 (Same as: l 09:01: BD [place] Posiflush) Insulin No Notes: Memoria regular 2-27 (Same as: l 09:: Humulin R) [place] 00 Roll in palms of hands gently; [...] a - (Same As: l 09:: Dulcolax, [place] Bisco-Lax) ondansetron No Notes: Jose Francisco zhang - (Same as: l 09:: Zofran) MEDICATION WASTE Product Size: 4 mg Product Wasted: ___ mg hydrALAZINE No Notes: Jose Francisco zhang 2-27 (Same as: l 09:: Apresoline [place] 00 ) Push over 5 minutes labetalol No 10 mg, 2 Jose Francisco zhang 2-27 mL, Route: l 09:: IVP, Drug form: INJ, Q15Min, Dosing Weight 86.364, kg, Start date: 11/27/22 3:01:00 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, Duration: 3 doses or times, Stop date: 11/27/22 3:31:00 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, 0 Tylenol No Notes: Do Memor ia with 2-27 not exceed l Codeine #3 09:01: 4gm/day of H [place] oral tablet 00 acetaminop hen. (Same as: Tylenol with Codeine # 3) tramadol No Notes: Not Mem oria 2-27 to exceed l 09:01: 400mg/day. Raul 00 (Same As: Ultram) Saline No Notes: Memoria Flush 0.9% 11-27 (Same as: l 09:: BD [place] Posiflush) Insulin No Notes: Memoria regular - (Same as: l 09:: Humulin R) [place] Roll in palms of hands gently; Do not shake vigorously . WASTE: F/P - Black; E - Municipal Trash Bin Stable for 31 days at room temperatur e Expires in days from ____Date acetaminoph No Notes: Do M emoria en - not exceed l 09:01: 4 gm/day. [place] 00 (Same as: Tylenol) bisacodyl No Notes: [...] Weight 86.364, kg, Start date: 11/27/22 3:01:00 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, Duration: 3 doses or times, Stop date: 11/27/22 3:31:00 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, 0 Tylenol No Notes: Do Memor ia [...] -27 (Same as: l 09:01: Humulin R) [place] 00 Roll in palms of hands gently; Do not shake vigorously . WASTE: F/P - Black; E - Municipal Trash Bin Stable for 31 days at room temperatur e Expires in days from ____Date acetaminoph No Notes: Do M emoria en 2-27 not exceed l 09:01: 4 gm/day. [place] 00 (Same as: Tylenol) bisacodyl No Notes: Memori a 2-27 (Same As: l 09:01: Dulcolax, [place] Bisco-Lax) ondansetron No Notes: Jose Francisco zhang [...] Weight 86.364, kg, Start date: 11/27/22 3:01:00 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, Duration: 3 doses or times, Stop date: 11/27/22 3:31:00 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, 0 Tylenol No Notes: Do Memor ia with 2-27 not exceed l Codeine #3 09:01: 4gm/day of H [place] oral tablet 00 acetaminop hen. (Same as: Tylenol with Codeine # 3) tramadol No Notes: Not Mem oria 2-27 to exceed l 09:01: 400mg/day. Raul 00 (Same As: Ultram) Saline No Notes: Memoria Flush 0.9% - (Same as: l 09:01: BD [place] Posiflush) Insulin No Notes: Memoria regular 2-27 (Same as: l 09:01: Humulin R) Roll in palms of hands gently; Do not shake vigorously . WASTE: F/P - Black; E - Municipal Trash Bin Stable for 31 days at room temperatur e Expires in days from ____Date acetaminoph No Notes: Do M emoria en 2- not exceed l 09:01: 4 gm/day. [place] (Same as: Tylenol) bisacodyl No Notes: Memori [...] Weight 86.364, kg, Start date: 11/27/22 3:01:00 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, Duration: 3 doses or times, Stop date: 11/27/22 3:31:00 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, 0 Tylenol No Notes: Do Memor ia with 2-27 not exceed l Codeine #3 09:01: 4gm/day of H ermann oral tablet 00 acetaminop hen. (Same as: Tylenol with Codeine # 3) tramadol No Notes: Not Mem oria 2-27 to exceed l 09:01: 400mg/day. [place] (Same As: Ultram) Saline No Notes: Memoria [...] - not exceed l 09:01: 4 gm/day. [place] 00 (Same as: Tylenol) bisacodyl No Notes: Memori a 2- (Same As: l 09:: Dulcolax, [place] 00 Bisco-Lax) ondansetron No Notes: Jose Francisco zhang 2-27 (Same as: l 09:: Zofran) Raul 00 MEDICATION WASTE Product Size: 4 mg Product Wasted: ___ mg hydrALAZINE No Notes: Jose Francisco zhang 2-27 (Same as: l 09:: Apresoline ) Push over 5 minutes labetalol No 10 mg, 2 Jose Francisco zhang 2-27 mL, Route: l 09:: IVP, Drug form: INJ, Q15Min, Dosing Weight 86.364, kg, Start date: 11/27/22 3:01:00 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, Duration: 3 doses or times, Stop date: 11/27/22 3:31:00 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, 0 Tylenol No Notes: Do Memor ia with 2-27 not exceed l Codeine #3 09:01: 4gm/day of H ermann oral tablet 00 acetaminop hen. (Same as: Tylenol with Codeine # 3) tramadol No Notes: Not Mem oria 2-27 to exceed l 09:01: 400mg/day. [place] 00 (Same As: Ultram) Saline No Notes: Memoria Flush 0.9% 11-27 (Same as: l 09:: BD [place] Posiflush) Insulin No Notes: Memoria regular - (Same as: l 09:: Humulin R) [place] 00 Roll in palms of hands gently; Do not shake vigorously . WASTE: F/P - Black; E - Municipal Trash Bin Stable for 31 days at room temperatur e Expires in days from ____Date acetaminoph No 1,000 mg, M emoria en 11-27 Route: PO, l 06:27: Drug form: [place] 00 TAB, ONCE, Dosing Weight 86.364, kg, Priority: STAT, Start date: 11/27/22 0:27:00 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, Stop date: 11/27/22 0:27:00 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 Keppra 2023-0 No 1,000 mg, Memori a 11-27 Route: l 06:27: IVPB, Drug [place] 00 form: INJ, ONCE, Dosing Weight 86.364, kg, Loading Dose, Priority: STAT, Start date: 11/27/22 0:27:00 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, Stop date: 11/27/22 0:27:00 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 acetaminoph 2023-0 No 1,000 mg, M emoria en 11-27 Route: PO, l 06:27: Drug form: [place] 00 TAB, ONCE, Dosing Weight 86.364, kg, Priority: STAT, Start date: 11/27/22 0:27:00 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, Stop date: 11/27/22 0:27:00 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 Keppra 2023-0 No 1,000 mg, Memori a 11-27 Route: l 06:27: IVPB, Drug [place] 00 form: INJ, ONCE, Dosing Weight 86.364, kg, Loading Dose, Priority: STAT, Start date: 11/27/22 0:27:00 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, Stop date: 11/27/22 0:27:00 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 acetaminoph 2023-0 No 1,000 mg, M emoria en 11-27 Route: PO, l 06:27: Drug form: Raul 00 TAB, ONCE, Dosing Weight 86.364, kg, Priority: STAT, Start date: 11/27/22 0:27:00 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, Stop date: 11/27/22 0:27:00 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 Keppra 2023-0 No 1,000 mg, Memori a 11-27 Route: l 06:27: IVPB, Drug [place] 00 form: INJ, ONCE, Dosing Weight 86.364, kg, Loading Dose, Priority: STAT, Start date: 11/27/22 0:27:00 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, Stop date: 11/27/22 0:27:00 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 acetaminoph 2023-0 No 1,000 mg, M emoria en 11-27 Route: PO, l 06:27: Drug form: Raul 00 TAB, ONCE, Dosing Weight 86.364, kg, Priority: STAT, Start date: 11/27/22 0:27:00 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, Stop date: 11/27/22 0:27:00 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 Keppra 2023-0 No 1,000 mg, Memori a 11-27 Route: l 06:27: IVPB, Drug [place] 00 form: INJ, ONCE, Dosing Weight 86.364, kg, Loading Dose, Priority: STAT, Start date: 11/27/22 0:27:00 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, Stop date: 11/27/22 0:27:00 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 acetaminoph 2023-0 No 1,000 mg, M emoria en 11-27 Route: PO, l 06:27: Drug form: Raul 00 TAB, ONCE, Dosing Weight 86.364, kg, Priority: STAT, Start date: 11/27/22 0:27:00 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, Stop date: 11/27/22 0:27:00 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 Keppra 2023-0 No 1,000 mg, Memori a 11-27 Route: l 06:27: IVPB, Drug Raul 00 form: INJ, ONCE, Dosing Weight 86.364, kg, Loading Dose, Priority: STAT, Start date: 11/27/22 0:27:00 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, Stop date: 11/27/22 0:27:00 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 acetaminoph 2023-0 No 1,000 mg, M emoria en 11-27 Route: PO, l 06:27: Drug form: Raul 00 TAB, ONCE, Dosing Weight 86.364, kg, Priority: STAT, Start date: 11/27/22 0:27:00 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, Stop date: 11/27/22 0:27:00 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 Keppra 2023-0 No 1,000 mg, Memori a 11-27 Route: l 06:27: IVPB, Drug [place] 00 form: INJ, ONCE, Dosing Weight 86.364, kg, Loading Dose, Priority: STAT, Start date: 11/27/22 0:27:00 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, Stop date: 11/27/22 0:27:00 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 acetaminoph 2023-0 No 1,000 mg, M emoria en 11-27 Route: PO, l 06:27: Drug form: [place] 00 TAB, ONCE, Dosing Weight 86.364, kg, Priority: STAT, Start date: 11/27/22 0:27:00 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, Stop date: 11/27/22 0:27:00 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 Keppra 2023-0 No 1,000 mg, Memori a 11-27 Route: l 06:27: IVPB, Drug Raul 00 form: INJ, ONCE, Dosing Weight 86.364, kg, Loading Dose, Priority: STAT, Start date: 11/27/22 0:27:00 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, Stop date: 11/27/22 0:27:00 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 acetaminoph 2023-0 No 1,000 mg, M emoria en 11-27 Route: PO, l 06:27: Drug form: [place] 00 TAB, ONCE, Dosing Weight 86.364, kg, Priority: STAT, Start date: 11/27/22 0:27:00 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, Stop date: 11/27/22 0:27:00 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 Keppra 3-0 No 1,000 mg, Memori a 11-27 Route: l 06:27: IVPB, Drug [place] 00 form: INJ, ONCE, Dosing Weight 86.364, kg, Loading Dose, Priority: STAT, Start date: 11/27/22 0:27:00 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, Stop date: 11/27/22 0:27:00 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 acetaminoph 3-0 No 1,000 mg, M emoria en 11-27 Route: PO, l 06:27: Drug form: [place] 00 TAB, ONCE, Dosing Weight 86.364, kg, Priority: STAT, Start date: 11/27/22 0:27:00 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, Stop date: 11/27/22 0:27:00 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 Keppra 3-0 No 1,000 mg, Memori a 11-27 Route: l 06:27: IVPB, Drug Ra[place] 00 form: INJ, ONCE, Dosing Weight 86.364, kg, Loading Dose, Priority: STAT, Start date: 11/27/22 0:27:00 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, Stop date: 11/27/22 0:27:00 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 heparin 3-0 No Notes: Memoria 5000 2-22 porcine l [...] day, # 12 tab, 0 Refill(s), Pharmacy: [id number], 149.86, cm, 11/21/22 4:11:00 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, Height, 86.364, kg, 11/21/22 4:11:00 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, Weight Tylenol 2022-0 No 1 tab, PO, Jose Francisco zhang with 2-22 Q6H, PRN l Codeine #3 19:14: Pain Score H [place] oral tablet 00 4-6, X 3 day, # 12 tab, 0 Refill(s), Pharmacy: [facility] #[id number], 149.86, cm, 11/21/22 4:11:00 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, Height, 86.364, kg, 11/21/22 4:11:00 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, Weight Tylenol 2022-0 No 1 tab, PO, Jose Francisco zhang with 2-22 Q6H, PRN l Codeine #3 19:14: Pain Score H ermann oral tablet 00 4-6, X 3 day, # 12 tab, 0 Refill(s), Pharmacy: [facility] #[id number], 149.86, cm, 11/21/22 4:11:00 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, Height, 86.364, kg, 11/21/22 4:11:00 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, Weight Tylenol 2023-0 No 1 tab, PO, Jose Francisco zhang with 2-22 Q6H, PRN l Codeine #3 19:14: Pain Score H ermann oral tablet 00 4-6, X 3 day, # 12 tab, 0 Refill(s), Pharmacy: [id number], 149.86, cm, 11/21/22 4:11:00 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, Height, 86.364, kg, 11/21/22 4:11:00 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, Weight Tylenol 2023-0 No 1 tab, PO, Jose Francisco zhang with 2-22 Q6H, PRN l Codeine #3 19:14: Pain Score H ermann oral tablet 00 4-6, X 3 day, # 12 tab, 0 Refill(s), Pharmacy: [facility] #[id number], 149.86, cm, 11/21/22 4:11:00 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, Height, 86.364, kg, 11/21/22 4:11:00 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, Weight Tylenol 2023-0 No 1 tab, PO, Jose Francisco zhang with 2-22 Q6H, PRN l Codeine #3 19:14: Pain Score H ermann oral tablet 00 4-6, X 3 day, # 12 tab, 0 Refill(s), Pharmacy: [id number], 149.86, cm, 11/21/22 4:11:00 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, Height, 86.364, kg, 11/21/22 4:11:00 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, Weight Tylenol 2023-0 No 1 tab, PO, Jose Francisco zhang with 2-22 Q6H, PRN l Codeine #3 19:14: Pain Score H ermann oral tablet 00 4-6, X 3 day, # 12 tab, 0 Refill(s), Pharmacy: [id number], 149.86, cm, 11/21/22 4:11:00 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, Height, 86.364, kg, 11/21/22 4:11:00 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, Weight Tylenol 2022-0 No 1 tab, PO, Jose Francisco zhang with 2-22 Q6H, PRN l Codeine #3 19:14: Pain Score H ermann oral tablet 00 4-6, X 3 day, # 12 tab, 0 Refill(s), Pharmacy: [facility] #[id number], 149.86, cm, 11/21/22 4:11:00 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, Height, 86.364, kg, 11/21/22 4:11:00 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, Weight Tylenol 2022-0 No 1 tab, PO, Jose Francisco zhang with 2-22 Q6H, PRN l Codeine #3 19:14: Pain Score H ermann oral tablet 00 4-6, X 3 day, # 12 tab, 0 Refill(s), Pharmacy: [facility] #[id number], 149.86, cm, 11/21/22 4:11:00 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, Height, 86.364, kg, 11/21/22 4:11:00 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, Weight Tylenol 2022-0 Yes 1 tab, PO, Jose Francisco zhang with 2-22 Q6H, PRN l Codeine #3 19:14: Pain Score H ermann oral tablet 00 4-6, X 3 day, # 12 tab, 0 Refill(s), Pharmacy: [facility] #[id number], 149.86, cm, 11/21/22 4:11:00 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, Height, 86.364, kg, 11/21/22 4:11:00 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, Weight Tylenol 2022-0 No 1 tab, PO, Jose Francisco zhang with 2-22 Q6H, PRN l Codeine #3 19:14: Pain Score H ermann oral tablet 00 4-6, X 3 day, # 12 tab, 0 Refill(s), Pharmacy: [facility] #[id number], 149.86, cm, 11/21/22 4:11:00 RIPPER OPERATOR, Height, 86.364, kg, 11/21/22 4:11:00 RIPPER OPERATOR, Weight gabapentin 2022-0 Yes 100 mg = 1 M emoria 100 mg oral 2-22 cap, PO, l capsule 19:13: Daily, # Ajay n 00 10 cap, 0 Refill(s), Pharmacy: [id number], 149.86, cm, 11/21/22 4:11:00 RIPPER OPERATOR, Height, 86.364, kg, 11/21/22 4:11:00 RIPPER OPERATOR, Weight Keppra 500 2022-0 Yes 500 mg = 1 M emoria mg oral 2-22 tab, PO, l tablet 19:13: Q12H, # 12 Jessie nn 00 tab, 0 Refill(s), Pharmacy: [id number], 149.86, cm, 11/21/22 4:11:00 RIPPER OPERATOR, Height, 86.364, kg, 11/21/22 4:11:00 RIPPER OPERATOR, Weight methocarbam 2022-0 Yes 500 mg = 1 Memoria ol 500 mg 2-22 tab, PO, l oral tablet 19:13: Q8H, X 10 [place] 00 day, # 30 tab, 0 Refill(s), Pharmacy: [id number], 149.86, cm, 11/21/22 4:11:00 RIPPER OPERATOR, Height, 86.364, kg, 11/21/22 4:11:00 RIPPER OPERATOR, Weight Zofran 4 mg 2022-0 Yes 4 mg = 1 Me moria oral tablet 2-22 tab, PO, l 19:13: Q8H, PRN [place] 00 Nausea/vom iting, X 7 day, # 21 tab, 0 Refill(s), Pharmacy: [facility] #[id number], 149.86, cm, 11/21/22 4:11:00 RIPPER OPERATOR, Height, 86.364, kg, 11/21/22 4:11:00 RIPPER OPERATOR, Weight gabapentin 2022-0 Yes 100 mg = 1 M emoria 100 mg oral 2-22 cap, PO, l capsule 19:13: Daily, # Ajay n 00 10 cap, 0 Refill(s), Pharmacy: [facility] #[id number], 149.86, cm, 11/21/22 4:11:00 RIPPER OPERATOR, Height, 86.364, kg, 11/21/22 4:11:00 RIPPER OPERATOR, Weight Keppra 500 3-0 Yes 500 mg = 1 M emoria mg oral 2-22 tab, PO, l tablet 19:13: Q12H, # 12 Jessie nn 00 tab, 0 Refill(s), Pharmacy: [id number], 149.86, cm, 11/21/22 4:11:00 RIPPER OPERATOR, Height, 86.364, kg, 11/21/22 4:11:00 RIPPER OPERATOR, Weight methocarbam 2022-0 Yes 500 mg = 1 Memoria ol 500 mg 2-22 tab, PO, l oral tablet 19:13: Q8H, X 10 H [place] 00 day, # 30 tab, 0 Refill(s), Pharmacy: [id number], 149.86, cm, 11/21/22 4:11:00 RIPPER OPERATOR, Height, 86.364, kg, 11/21/22 4:11:00 RIPPER OPERATOR, Weight Zofran 4 mg 2022-0 Yes 4 mg = 1 Me moria oral tablet 2-22 tab, PO, l 19:13: Q8H, PRN Raul 00 Nausea/vom iting, X 7 day, # 21 tab, 0 Refill(s), Pharmacy: [id number], 149.86, cm, 11/21/22 4:11:00 RIPPER OPERATOR, Height, 86.364, kg, 11/21/22 4:11:00 RIPPER OPERATOR, Weight gabapentin 2022-0 Yes 100 mg = 1 M emoria 100 mg oral 2-22 cap, PO, l capsule 19:13: Daily, # Ajay n 00 10 cap, 0 Refill(s), Pharmacy: [id number], 149.86, cm, 11/21/22 4:11:00 RIPPER OPERATOR, Height, 86.364, kg, 11/21/22 4:11:00 RIPPER OPERATOR, Weight Keppra 500 2022-0 Yes 500 mg = 1 M emoria mg oral 2-22 tab, PO, l tablet 19:13: Q12H, # 12 Jessie nn 00 tab, 0 Refill(s), Pharmacy: [id number], 149.86, cm, 11/21/22 4:11:00 RIPPER OPERATOR, Height, 86.364, kg, 11/21/22 4:11:00 RIPPER OPERATOR, Weight methocarbam 3-0 Yes 500 mg = 1 Memoria ol 500 mg 2-22 tab, PO, l oral tablet 19:13: Q8H, X 10 H [place] 00 day, # 30 tab, 0 Refill(s), Pharmacy: [id number], 149.86, cm, 11/21/22 4:11:00 RIPPER OPERATOR, Height, 86.364, kg, 11/21/22 4:11:00 RIPPER OPERATOR, Weight Zofran 4 mg 2022-0 Yes 4 mg = 1 Me moria oral tablet 2-22 tab, PO, l 19:13: Q8H, PRN [place] 00 Nausea/vom iting, X 7 day, # 21 tab, 0 Refill(s), Pharmacy: [id number], 149.86, cm, 11/21/22 4:11:00 RIPPER OPERATOR, Height, 86.364, kg, 11/21/22 4:11:00 RIPPER OPERATOR, Weight gabapentin 2022-0 Yes 100 mg = 1 M emoria 100 mg oral 2-22 cap, PO, l capsule 19:13: Daily, # Ajay n 00 10 cap, 0 Refill(s), Pharmacy: [id number], 149.86, cm, 11/21/22 4:11:00 RIPPER OPERATOR, Height, 86.364, kg, 11/21/22 4:11:00 RIPPER OPERATOR, Weight Keppra 500 2022-0 Yes 500 mg = 1 M emoria mg oral 2-22 tab, PO, l tablet 19:13: Q12H, # 12 Jessie nn 00 tab, 0 Refill(s), Pharmacy: [id number], 149.86, cm, 11/21/22 4:11:00 RIPPER OPERATOR, Height, 86.364, kg, 11/21/22 4:11:00 RIPPER OPERATOR, Weight methocarbam 2022-0 Yes 500 mg = 1 Memoria ol 500 mg 2-22 tab, PO, l oral tablet 19:13: Q8H, X 10 H [place] 00 day, # 30 tab, 0 Refill(s), Pharmacy: [id number], 149.86, cm, 11/21/22 4:11:00 RIPPER OPERATOR, Height, 86.364, kg, 11/21/22 4:11:00 RIPPER OPERATOR, Weight Zofran 4 mg 3-0 Yes 4 mg = 1 Me moria oral tablet 2-22 tab, PO, l 19:13: Q8H, PRN [place] 00 Nausea/vom iting, X 7 day, # 21 tab, 0 Refill(s), Pharmacy: [id number], 149.86, cm, 11/21/22 4:11:00 RIPPER OPERATOR, Height, 86.364, kg, 11/21/22 4:11:00 RIPPER OPERATOR, Weight gabapentin 2022-0 Yes 100 mg = 1 M emoria 100 mg oral 2-22 cap, PO, l capsule 19:13: Daily, # Ajay n 00 10 cap, 0 Refill(s), Pharmacy: [id number], 149.86, cm, 11/21/22 4:11:00 RIPPER OPERATOR, Height, 86.364, kg, 11/21/22 4:11:00 RIPPER OPERATOR, Weight Keppra 500 2022-0 Yes 500 mg = 1 M emoria mg oral 2-22 tab, PO, l tablet 19:13: Q12H, # 12 Jessie nn 00 tab, 0 Refill(s), Pharmacy: [id number], 149.86, cm, 11/21/22 4:11:00 RIPPER OPERATOR, Height, 86.364, kg, 11/21/22 4:11:00 RIPPER OPERATOR, Weight methocarbam 2022-0 Yes 500 mg = 1 Memoria ol 500 mg 2-22 tab, PO, l oral tablet 19:13: Q8H, X 10 H [place] 00 day, # 30 tab, 0 Refill(s), Pharmacy: [id number], 149.86, cm, 11/21/22 4:11:00 RIPPER OPERATOR, Height, 86.364, kg, 11/21/22 4:11:00 RIPPER OPERATOR, Weight Zofran 4 mg 2023-0 Yes 4 mg = 1 Me moria oral tablet 2-22 tab, PO, l 19:13: Q8H, PRN [place] 00 Nausea/vom iting, X 7 day, # 21 tab, 0 Refill(s), Pharmacy: [id number], 149.86, cm, 11/21/22 4:11:00 RIPPER OPERATOR, Height, 86.364, kg, 11/21/22 4:11:00 RIPPER OPERATOR, Weight gabapentin 2022-0 Yes 100 mg = 1 M emoria 100 mg oral 2-22 cap, PO, l capsule 19:13: Daily, # Ajay n 00 10 cap, 0 Refill(s), Pharmacy: [id number], 149.86, cm, 11/21/22 4:11:00 RIPPER OPERATOR, Height, 86.364, kg, 11/21/22 4:11:00 RIPPER OPERATOR, Weight Keppra 500 2022-0 Yes 500 mg = 1 M emoria mg oral 2-22 tab, PO, l tablet 19:13: Q12H, # 12 Jessie nn 00 tab, 0 Refill(s), Pharmacy: [id number], 149.86, cm, 11/21/22 4:11:00 RIPPER OPERATOR, Height, 86.364, kg, 11/21/22 4:11:00 RIPPER OPERATOR, Weight methocarbam 2022-0 Yes 500 mg = 1 Memoria ol 500 mg 2-22 tab, PO, l oral tablet 19:13: Q8H, X 10 H [place] 00 day, # 30 tab, 0 Refill(s), Pharmacy: [id number], 149.86, cm, 11/21/22 4:11:00 RIPPER OPERATOR, Height, 86.364, kg, 11/21/22 4:11:00 RIPPER OPERATOR, Weight Zofran 4 mg 2022-0 Yes 4 mg = 1 Me moria oral tablet 2-22 tab, PO, l 19:13: Q8H, PRN Raul 00 Nausea/vom iting, X 7 day, # 21 tab, 0 Refill(s), Pharmacy: [id number], 149.86, cm, 11/21/22 4:11:00 RIPPER OPERATOR, Height, 86.364, kg, 11/21/22 4:11:00 RIPPER OPERATOR, Weight gabapentin 2022-0 Yes 100 mg = 1 M emoria 100 mg oral 2-22 cap, PO, l capsule 19:13: Daily, # Ajay n 00 10 cap, 0 Refill(s), Pharmacy: [id number], 149.86, cm, 11/21/22 4:11:00 RIPPER OPERATOR, Height, 86.364, kg, 11/21/22 4:11:00 RIPPER OPERATOR, Weight Keppra 500 2022-0 Yes 500 mg = 1 M emoria mg oral 2-22 tab, PO, l tablet 19:13: Q12H, # 12 Jessie nn 00 tab, 0 Refill(s), Pharmacy: [id number], 149.86, cm, 11/21/22 4:11:00 RIPPER OPERATOR, Height, 86.364, kg, 11/21/22 4:11:00 RIPPER OPERATOR, Weight methocarbam 2022-0 Yes 500 mg = 1 Memoria ol 500 mg 2-22 tab, PO, l oral tablet 19:13: Q8H, X 10 H ermann 00 day, # 30 tab, 0 Refill(s), Pharmacy: [id number], 149.86, cm, 11/21/22 4:11:00 RIPPER OPERATOR, Height, 86.364, kg, 11/21/22 4:11:00 RIPPER OPERATOR, Weight Zofran 4 mg 2022-0 Yes 4 mg = 1 Me moria oral tablet 2-22 tab, PO, l 19:13: Q8H, PRN Raul 00 Nausea/vom iting, X 7 day, # 21 tab, 0 Refill(s), Pharmacy: [id number], 149.86, cm, 11/21/22 4:11:00 RIPPER OPERATOR, Height, 86.364, kg, 11/21/22 4:11:00 RIPPER OPERATOR, Weight gabapentin 2022-0 Yes 100 mg = 1 M emoria 100 mg oral 2-22 cap, PO, l capsule 19:13: Daily, # Ajay n 00 10 cap, 0 Refill(s), Pharmacy: [id number], 149.86, cm, 11/21/22 4:11:00 RIPPER OPERATOR, Height, 86.364, kg, 11/21/22 4:11:00 RIPPER OPERATOR, Weight Keppra 500 2022-0 Yes 500 mg = 1 M emoria mg oral 2-22 tab, PO, l tablet 19:13: Q12H, # 12 Jessie nn 00 tab, 0 Refill(s), Pharmacy: [id number], 149.86, cm, 11/21/22 4:11:00 RIPPER OPERATOR, Height, 86.364, kg, 11/21/22 4:11:00 RIPPER OPERATOR, Weight methocarbam 2022-0 Yes 500 mg = 1 Memoria ol 500 mg 2-22 tab, PO, l oral tablet 19:13: Q8H, X 10 H [place] 00 day, # 30 tab, 0 Refill(s), Pharmacy: [id number], 149.86, cm, 11/21/22 4:11:00 RIPPER OPERATOR, Height, 86.364, kg, 11/21/22 4:11:00 RIPPER OPERATOR, Weight Zofran 4 mg 2022-0 Yes 4 mg = 1 Me moria oral tablet 2-22 tab, PO, l 19:13: Q8H, PRN Raul 00 Nausea/vom iting, X 7 day, # 21 tab, 0 Refill(s), Pharmacy: [id number], 149.86, cm, 11/21/22 4:11:00 RIPPER OPERATOR, Height, 86.364, kg, 11/21/22 4:11:00 RIPPER OPERATOR, Weight gabapentin 2022-0 Yes 100 mg = 1 M emoria 100 mg oral 2-22 cap, PO, l capsule 19:13: Daily, # Ajay n 00 10 cap, 0 Refill(s), Pharmacy: [id number], 149.86, cm, 11/21/22 4:11:00 RIPPER OPERATOR, Height, 86.364, kg, 11/21/22 4:11:00 RIPPER OPERATOR, Weight Keppra 500 2022-0 Yes 500 mg = 1 M emoria mg oral 2-22 tab, PO, l tablet 19:13: Q12H, # 12 Jessie nn 00 tab, 0 Refill(s), Pharmacy: [id number], 149.86, cm, 11/21/22 4:11:00 RIPPER OPERATOR, Height, 86.364, kg, 11/21/22 4:11:00 RIPPER OPERATOR, Weight methocarbam 2022-0 Yes 500 mg = 1 Memoria ol 500 mg 2-22 tab, PO, l oral tablet 19:13: Q8H, X 10 H ermann 00 day, # 30 tab, 0 Refill(s), Pharmacy: [id number], 149.86, cm, 11/21/22 4:11:00 RIPPER OPERATOR, Height, 86.364, kg, 11/21/22 4:11:00 RIPPER OPERATOR, Weight Zofran 4 mg 3-0 Yes 4 mg = 1 Me moria oral tablet 2-22 tab, PO, l 19:13: Q8H, PRN [place] 00 Nausea/vom iting, X 7 day, # 21 tab, 0 Refill(s), Pharmacy: [id number], 149.86, cm, 11/21/22 4:11:00 RIPPER OPERATOR, Height, 86.364, kg, 11/21/22 4:11:00 RIPPER OPERATOR, Weight gabapentin 2022-0 Yes 100 mg = 1 M emoria 100 mg oral 2-22 cap, PO, l capsule 19:13: Daily, # Ajay n 00 10 cap, 0 Refill(s), Pharmacy: [id number], 149.86, cm, 11/21/22 4:11:00 RIPPER OPERATOR, Height, 86.364, kg, 11/21/22 4:11:00 RIPPER OPERATOR, Weight Keppra 500 2022-0 Yes 500 mg = 1 M emoria mg oral 2-22 tab, PO, l tablet 19:13: Q12H, # 12 Jessie nn 00 tab, 0 Refill(s), Pharmacy: [id number], 149.86, cm, 11/21/22 4:11:00 RIPPER OPERATOR, Height, 86.364, kg, 11/21/22 4:11:00 RIPPER OPERATOR, Weight methocarbam 2022-0 Yes 500 mg = 1 Memoria ol 500 mg 2-22 tab, PO, l oral tablet 19:13: Q8H, X 10 H ermann 00 day, # 30 tab, 0 Refill(s), Pharmacy: [id number], 149.86, cm, 11/21/22 4:11:00 RIPPER OPERATOR, Height, 86.364, kg, 11/21/22 4:11:00 RIPPER OPERATOR, Weight Zofran 4 mg 3-0 Yes 4 mg = 1 Me moria oral tablet 2-22 tab, PO, l 19:13: Q8H, PRN [place] 00 Nausea/vom iting, X 7 day, # 21 tab, 0 Refill(s), Pharmacy: [id number], 149.86, cm, 11/21/22 4:11:00 RIPPER OPERATOR, Height, 86.364, kg, 11/21/22 4:11:00 RIPPER OPERATOR, Weight gabapentin Yes 100 mg = 1 M emoria 100 mg oral 2-22 cap, PO, l capsule 19:13: Daily, # Ajay n 00 10 cap, 0 Refill(s), Pharmacy: [id number], 149.86, cm, 11/21/22 4:11:00 RIPPER OPERATOR, Height, 86.364, kg, 11/21/22 4:11:00 RIPPER OPERATOR, Weight Keppra 500 Yes 500 mg = 1 M emoria mg oral 2-22 tab, PO, l tablet 19:13: Q12H, # 12 Jessie nn 00 tab, 0 Refill(s), Pharmacy: [id number], 149.86, cm, 11/21/22 4:11:00 RIPPER OPERATOR, Height, 86.364, kg, 11/21/22 4:11:00 RIPPER OPERATOR, Weight methocarbam Yes 500 mg = 1 Memoria ol 500 mg 2-22 tab, PO, l oral tablet 19:13: Q8H, X 10 H ermann 00 day, # 30 tab, 0 Refill(s), Pharmacy: [id number], 149.86, cm, 11/21/22 4:11:00 RIPPER OPERATOR, Height, 86.364, kg, 11/21/22 4:11:00 RIPPER OPERATOR, Weight Zofran 4 mg Yes 4 mg = 1 Me moria oral tablet 2-22 tab, PO, l 19:13: Q8H, PRN [place] 00 Nausea/vom iting, X 7 day, # 21 tab, 0 Refill(s), Pharmacy: [id number], 149.86, cm, 11/21/22 4:11:00 RIPPER OPERATOR, Height, 86.364, kg, 11/21/22 4:11:00 RIPPER OPERATOR, Weight donepezil No Notes: Memori a 2-22 (Same as: l 15:00: Aricept) [place] 00 ferrous No Notes: Memoria sulfate 2-22 Give with l 15:00: food. "Do [place] 00 Not Crush" Lasix No Notes: Memoria [...] 00 mg, Route: PO, Daily, 11/22/22 9:00:00 RIPPER OPERATOR, Duration: 30 day, Stop date: 12/21/22 9:00:00 CDT donepezil No Notes: Memori a 2-22 (Same as: l 15:00: Aricept) [place] 00 ferrous No Notes: Memoria sulfate 2-22 Give with l 15:00: food. "Do [place] 00 Not Crush" Lasix No Notes: Memoria [...] 00 mg, Route: PO, Daily, 11/22/22 9:00:00 RIPPER OPERATOR, Duration: 30 day, Stop date: 12/21/22 9:00:00 [...] 00 mg, Route: PO, Daily, 11/22/22 9:00:00 RIPPER OPERATOR, Duration: 30 day, Stop date: 12/21/22 9:00:00 CDT donepezil No Notes: Memori a 2-22 (Same as: l 15:00: Aricept) ferrous No Notes: Memoria sulfate 2-22 Give with l 15:00: food. "Do [place] 00 Not Crush" Lasix No Notes: Memoria [...] 00 mg, Route: PO, Daily, 11/22/22 9:00:00 RIPPER OPERATOR, Duration: 30 day, Stop date: 12/21/22 9:00:00 CDT donepezil No Notes: Memori a 2-22 (Same as: l 15:00: Aricept) [place] 00 ferrous No Notes: Memoria sulfate 2-22 Give with l 15:00: food. "Do [place] 00 Not Crush" Lasix No Notes: Memoria 2-22 (Same as: l 15:00: Lasix) May 00 cause GI upset. Give with food or milk. levothyroxi No Notes: Jose Francisco zhang ne 2-22 Take 1 l 15:00: hour [place] 00 before or 2 hours after meal; [...] 00 mg, Route: PO, Daily, 11/22/22 9:00:00 RIPPER OPERATOR, Duration: 30 day, Stop date: 12/21/22 9:00:00 CDT donepezil No Notes: Memori a 2-22 (Same as: l 15:00: Aricept) [place] 00 ferrous No Notes: Memoria sulfate 2-22 Give with l 15:00: food. "Do [place] 00 Not Crush" Lasix No Notes: Memoria 2-22 (Same as: l 15:00: Lasix) January cause GI upset. Give with food or milk. levothyroxi No Notes: Jose Francisco zhang ne 2-22 Take 1 l 15:00: hour [place] 00 before or 2 hours after meal; Enteral feeds may interefere with the absorption of this medication .(Same as:Levothr oid) NIFEdipine No Notes: Memor ia 30 mg oral 2-22 (Same as: l tablet, 15:00: Adalat CC, Herm benrie extended 00 Procardia release XL) Give on empty stomach. Take 1 hour before or 2 hours after meal; "Avoid grapefruit and grapefruit juice". Do not crush Kerendia 10 No Kerendia Me moria mg oral 2-22 10 mg oral l tablet 15:00: tablet, 10 Jessie nn 00 mg, Route: PO, Daily, 11/22/22 9:00:00 RIPPER OPERATOR, Duration: 30 day, Stop date: 12/21/22 9:00:00 CDT donepezil No Notes: Memori a 2-22 (Same as: l 15:00: Aricept) Raul ferrous No Notes: Memoria sulfate 2-22 Give with l 15:00: food. "Do [place] 00 Not Crush" Lasix No Notes: Memoria 2-22 (Same as: l 15:00: Lasix) January 00 cause GI upset. Give with food or milk. levothyroxi No Notes: Jose Francisco zhang ne 2-22 Take 1 l 15:00: hour [place] 00 before or 2 hours after meal; [...] 00 mg, Route: PO, Daily, 11/22/22 9:00:00 RIPPER OPERATOR, Duration: 30 day, Stop date: 12/21/22 9:00:00 [...] ne 2-22 Take 1 l 15:00: hour 00 before or 2 hours after meal; [...] 00 mg, Route: PO, Daily, 11/22/22 9:00:00 RIPPER OPERATOR, Duration: 30 day, Stop date: 12/21/22 9:00:00 CDT donepezil No Notes: Memori a 2-22 (Same as: l 15:00: Aricept) [place] ferrous No Notes: Memoria sulfate 2-22 Give with l 15:00: food. "Do [place] 00 Not Crush" Lasix No Notes: Memoria 2-22 (Same as: l 15:00: Lasix) May 00 cause GI upset. Give with food or milk. levothyroxi No Notes: Jose Francisco zhang ne 2-22 Take 1 l 15:00: hour [place] 00 before or 2 hours after meal; [...] 00 mg, Route: PO, Daily, 11/22/22 9:00:00 RIPPER OPERATOR, Duration: 30 day, Stop date: 12/21/22 9:00:00 CDT Keppra 500 No Notes: Memor ia mg oral 2-22 (Same l tablet 03:00: as:Keppra) Jessie nn 00 Coreg No Notes: Memoria 2-22 Give with l 03:00: food. 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, Duration: 30 day, Stop date: 12/20/22 21:00:00 CDT primidone 2022-0 No 50 mg, 1 Jose Francisco zhang 2-22 tab, l 03:00: Route: PO, Drug form: TAB, Bedtime, Dosing Weight 86.364, kg, 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/22 21:00:00 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, Duration: 30 day, Stop date: 12/20/22 21:00:00 CDT primidone 2022-0 No 50 mg, 1 Jose Francisco zhang 2-22 tab, l 03:00: Route: PO, Drug form: TAB, Bedtime, Dosing Weight 86.364, kg, 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/22 21:00:00 RIPPER 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, Duration: 30 day, Stop date: 12/20/22 21:00:00 CDT, 0 rOPINIRole 2022-0 No 4 mg, 2 Jose Francisco zhang 2-22 tab, l 03:00: Route: PO, Drug form: TAB, Q12H, Dosing Weight 86.364, kg, 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/22 21:00:00 RIPPER 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, Duration: 30 day, Stop date: 12/21/22 9:00:00 [...] Weight 86.364, kg, Start date: 11/21/22 21:00:00 RIPPER 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, Duration: 30 day, Stop date: 12/21/22 9:00:00 CDT, 0 Pepcid 40 0 No Notes: Memori a mg oral 2-22 (Same as: l tablet 03:00: Pepcid) lovastatin 0 No 20 mg, 1 Mem oria 2-22 tab, l 03:00: Route: PO, Drug form: TAB, Bedtime, Dosing Weight 86.364, kg, Start date: 11/21/22 21:00:00 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, Duration: 30 day, Stop date: 12/20/22 21:00:00 CDT primidone 2022-0 No 50 mg, 1 Jose Francisco zhang 2-22 tab, l 03:00: Route: PO, Drug form: TAB, Bedtime, Dosing Weight 86.364, kg, Start date: 11/21/22 21:00:00 RIPPER 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, Duration: 30 day, Stop date: 12/20/22 21:00:00 CDT, 0 rOPINIRole 2022-0 No 4 mg, 2 Jose Francisco zhang 2-22 tab, l 03:00: Route: PO, Drug form: TAB, Q12H, Dosing Weight 86.364, kg, Start date: 11/21/22 21:00:00 RIPPER 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, Duration: 30 day, Stop date: 12/21/22 9:00:00 [...] Weight 86.364, kg, Start date: 11/21/22 21:00:00 RIPPER 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, Duration: 30 day, Stop date: 12/21/22 9:00:00 CDT, 0 Pepcid 40 2022-0 No Notes: Memori a mg oral 2-22 (Same as: l tablet 03:00: Pepcid) lovastatin 2022-0 No 20 mg, 1 Mem oria 2-22 tab, l 03:00: Route: PO, Drug form: TAB, Bedtime, Dosing Weight 86.364, kg, Start date: 11/21/22 21:00:00 RIPPER 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, Duration: 30 day, Stop date: 12/20/22 21:00:00 CDT primidone 2022-0 No 50 mg, 1 Jose Francisco zhang 2-22 tab, l 03:00: Route: PO, Drug form: TAB, Bedtime, Dosing Weight 86.364, kg, Start date: 11/21/22 21:00:00 RIPPER 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, Duration: 30 day, Stop date: 12/20/22 21:00:00 CDT, 0 rOPINIRole 3-0 No 4 mg, 2 Jose Francisco zhang 2-22 tab, l 03:00: Route: PO, Drug form: TAB, Q12H, Dosing Weight 86.364, kg, Start date: 11/21/22 21:00:00 RIPPER OPERATOR, Duration: 30 day, Stop date: 12/21/22 9:00:00 [...] Weight 86.364, kg, Start date: 11/21/22 21:00:00 RIPPER OPERATOR, Duration: 30 day, Stop date: 12/21/22 9:00:00 CDT, 0 Pepcid 40 2022-0 No Notes: Memori a mg oral 2-22 (Same as: l tablet 03:00: Pepcid) lovastatin 2022-0 No 20 mg, 1 Mem oria 2-22 tab, l 03:00: Route: PO, Drug form: TAB, Bedtime, Dosing Weight 86.364, kg, Start date: 11/21/22 21:00:00 RIPPER OPERATOR, Duration: 30 day, Stop date: 12/20/22 21:00:00 CDT primidone 3-0 No 50 mg, 1 Jose Francisco zhang 2-22 tab, l 03:00: Route: PO, Drug form: TAB, Bedtime, Dosing Weight 86.364, kg, Start date: 11/21/22 21:00:00 RIPPER OPERATOR, Duration: 30 day, Stop date: 12/20/22 21:00:00 CDT, 0 rOPINIRole 3-0 No 4 mg, 2 Jose Francisco zhang 2-22 tab, l 03:00: Route: PO, Drug form: TAB, Q12H, Dosing Weight 86.364, kg, Start date: 11/21/22 21:00:00 RIPPER OPERATOR, Duration: 30 day, Stop date: 12/21/22 9:00:00 [...] Weight 86.364, kg, Start date: 11/21/22 21:00:00 RIPPER OPERATOR, Duration: 30 day, Stop date: 12/21/22 9:00:00 CDT, 0 Pepcid 40 0 No Notes: Memori a mg oral 2-22 (Same as: l tablet 03:00: Pepcid) lovastatin 2022-0 No 20 mg, 1 Mem oria 2-22 tab, l 03:00: Route: PO, Drug form: TAB, Bedtime, Dosing Weight 86.364, kg, Start date: 11/21/22 21:00:00 RIPPER OPERATOR, Duration: 30 day, Stop date: 12/20/22 21:00:00 CDT primidone 2022-0 No 50 mg, 1 Jose Francisco zhang 2-22 tab, l 03:00: Route: PO, Drug form: TAB, Bedtime, Dosing Weight 86.364, kg, Start date: 11/21/22 21:00:00 RIPPER OPERATOR, Duration: 30 day, Stop date: 12/20/22 21:00:00 CDT, 0 rOPINIRole 2022-0 No 4 mg, 2 Jose Francisco zhang 2-22 tab, l 03:00: Route: PO, Drug form: TAB, Q12H, Dosing Weight 86.364, kg, Start date: 11/21/22 21:00:00 RIPPER OPERATOR, Duration: 30 day, Stop date: 12/21/22 9:00:00 [...] Weight 86.364, kg, Start date: 11/21/22 21:00:00 RIPPER OPERATOR, Duration: 30 day, Stop date: 12/21/22 9:00:00 CDT, 0 Pepcid 40 0 No Notes: Memori a mg oral 2-22 (Same as: l tablet 03:00: Pepcid) lovastatin 2022-0 No 20 mg, 1 Mem oria 2-22 tab, l 03:00: Route: PO, Drug form: TAB, Bedtime, Dosing Weight 86.364, kg, Start date: 11/21/22 21:00:00 RIPPER OPERATOR, Duration: 30 day, Stop date: 12/20/22 21:00:00 CDT primidone 2022-0 No 50 mg, 1 Jose Francisco zhang 2-22 tab, l 03:00: Route: PO, Drug form: TAB, Bedtime, Dosing Weight 86.364, kg, Start date: 11/21/22 21:00:00 RIPPER OPERATOR, Duration: 30 day, Stop date: 12/20/22 21:00:00 CDT, 0 rOPINIRole 2022-0 No 4 mg, 2 Jose Francisco zhang 2-22 tab, l 03:00: Route: PO, Drug form: TAB, Q12H, Dosing Weight 86.364, kg, Start date: 11/21/22 21:00:00 RIPPER OPERATOR, Duration: 30 day, Stop date: 12/21/22 9:00:00 [...] Weight 86.364, kg, Start date: 11/21/22 21:00:00 RIPPER OPERATOR, Duration: 30 day, Stop date: 12/21/22 9:00:00 CDT, 0 Pepcid 40 2022-0 No Notes: Mem[facility] a mg oral 2-22 (Same as: l tablet 03:00: Pepcid) lovastatin 2022-0 No 20 mg, 1 Mem oria 2-22 tab, l 03:00: Route: PO, Drug form: TAB, Bedtime, Dosing Weight 86.364, kg, Start date: 11/21/22 21:00:00 RIPPER OPERATOR, Duration: 30 day, Stop date: 12/20/22 21:00:00 CDT primidone 2022-0 No 50 mg, 1 Jose Francisco zhang 2-22 tab, l 03:00: Route: PO, Drug form: TAB, Bedtime, Dosing Weight 86.364, kg, Start date: 11/21/22 21:00:00 RIPPER OPERATOR, Duration: 30 day, Stop date: 12/20/22 21:00:00 CDT, 0 rOPINIRole 2022-0 No 4 mg, 2 Jose Francisco zhang 2-22 tab, l 03:00: Route: PO, Drug form: TAB, Q12H, Dosing Weight 86.364, kg, Start date: 11/21/22 21:00:00 RIPPER OPERATOR, Duration: 30 day, Stop date: 12/21/22 9:00:00 [...] Weight 86.364, kg, Start date: 11/21/22 21:00:00 RIPPER OPERATOR, Duration: 30 day, Stop date: 12/21/22 9:00:00 CDT, 0 Pepcid 40 No Notes: Mem[facility] a mg oral 2-22 (Same as: l tablet 03:00: Pepcid) lovastatin No 20 mg, 1 Mem oria 2-22 tab, l 03:00: Route: PO, Drug form: TAB, Bedtime, Dosing Weight 86.364, kg, Start date: 11/21/22 21:00:00 RIPPER OPERATOR, Duration: 30 day, Stop date: 12/20/22 21:00:00 CDT primidone 0 No 50 mg, 1 Jose Francisco zhang 2-22 tab, l 03:00: Route: PO, Drug form: TAB, Bedtime, Dosing Weight 86.364, kg, Start date: 11/21/22 21:00:00 RIPPER OPERATOR, Duration: 30 day, Stop date: 12/20/22 21:00:00 CDT, 0 rOPINIRole 2022-0 No 4 mg, 2 Jose Francisco zhang 2-22 tab, l 03:00: Route: PO, Drug form: TAB, Q12H, Dosing Weight 86.364, kg, Start date: 11/21/22 21:00:00 RIPPER OPERATOR, Duration: 30 day, Stop date: 12/21/22 9:00:00 CDT, 0 Lipitor 0 No Notes: [facility] 2-22 (Same As: l 03:00: Lipitor) Robaxin 2023-0 No Notes: [facility] 2-22 (Same l 00:27: as:Robaxin Raul 00 ) Robaxin 0 No Notes: [facility] 2-22 (Same l 00:27: as:Robaxin Raul 00 ) Robaxin 0 No Notes: [facility] 2-22 (Same l 00:27: as:Robaxin [place] 00 ) Robaxin 0 No Notes: [facility] 2-22 (Same l 00:27: as:Robaxin Raul 00 ) Robaxin 0 No Notes: [facility] 2-22 (Same l 00:27: as:Robaxin [place] 00 ) Robaxin 0 No Notes: [facility] 2-22 (Same l 00:27: as:Robaxin Raul 00 ) Robaxin 0 No Notes: [facility] 2-22 (Same l 00:27: as:Robaxin Raul 00 ) Robaxin 0 No Notes: [facility] 2-22 (Same l 00:27: as:Robaxin Raul 00 ) Robaxin 0 No Notes: [facility] 2-22 (Same l 00:27: as:Robaxin [place] 00 ) Tylenol No Notes: Do Memor [...] l capsule 00:16: Neurontin) Herm bernie gabapentin 2022-0 No Notes: Memor ia 100 mg oral 2-22 (Same as: l capsule 00:16: Neurontin) Herm bernie normal 2022-0 No 1,000 mL, Memori a saline 0.9% 2-21 Rate: 75 l IV 1,000 mL 22:13: ml/hr, Herm bernie 00 Infuse over: 13.3 hr, Route: IV, Dosing Weight 86.364 kg, Total Volume: 1,000, Start date: 11/21/22 16:13:00 RIPPER OPERATOR, Duration: 30 day, Stop date: 12/21/22 16:12:00 CDT, BSA: 1.93 m2, 0 normal 2022-0 No 1,000 mL, Memori a saline 0.9% 2-21 Rate: 75 l IV 1,000 mL 22:13: ml/hr, Herm bernie 00 Infuse over: 13.3 hr, Route: IV, Dosing Weight 86.364 kg, Total Volume: 1,000, Start date: 11/21/22 16:13:00 RIPPER OPERATOR, Duration: 30 day, Stop date: 12/21/22 16:12:00 CDT, BSA: 1.93 m2, 0 normal 2022-0 No 1,000 mL, Memori a saline 0.9% 2-21 Rate: 75 l IV 1,000 mL 22:13: ml/hr, Herm bernie 00 Infuse over: 13.3 hr, Route: IV, Dosing Weight 86.364 kg, Total Volume: 1,000, Start date: 11/21/22 16:13:00 RIPPER OPERATOR, Duration: 30 day, Stop date: 12/21/22 16:12:00 CDT, BSA: 1.93 m2, 0 normal 2022-0 No 1,000 mL, Memori a saline 0.9% 2-21 Rate: 75 l IV 1,000 mL 22:13: ml/hr, Herm bernie 00 Infuse over: 13.3 hr, Route: IV, Dosing Weight 86.364 kg, Total Volume: 1,000, Start date: 11/21/22 16:13:00 RIPPER OPERATOR, Duration: 30 day, Stop date: 12/21/22 16:12:00 CDT, BSA: 1.93 m2, 0 normal 2023-0 No 1,000 mL, Memori a saline 0.9% 2-21 Rate: 75 l IV 1,000 mL 22:13: ml/hr, Herm bernie 00 Infuse over: 13.3 hr, Route: IV, Dosing Weight 86.364 kg, Total Volume: 1,000, Start date: 11/21/22 16:13:00 RIPPER OPERATOR, Duration: 30 day, Stop date: 12/21/22 16:12:00 CDT, BSA: 1.93 m2, 0 normal 2023-0 No 1,000 mL, Memori a saline 0.9% 2-21 Rate: 75 l IV 1,000 mL 22:13: ml/hr, Herm bernie 00 Infuse over: 13.3 hr, Route: IV, Dosing Weight 86.364 kg, Total Volume: 1,000, Start date: 11/21/22 16:13:00 RIPPER OPERATOR, Duration: 30 day, Stop date: 12/21/22 16:12:00 CDT, BSA: 1.93 m2, 0 normal 2023-0 No 1,000 mL, Memori a saline 0.9% 2-21 Rate: 75 l IV 1,000 mL 22:13: ml/hr, Herm bernie 00 Infuse over: 13.3 hr, Route: IV, Dosing Weight 86.364 kg, Total Volume: 1,000, Start date: 11/21/22 16:13:00 RIPPER OPERATOR, Duration: 30 day, Stop date: 12/21/22 16:12:00 CDT, BSA: 1.93 m2, 0 normal 2023-0 No 1,000 mL, Memori a saline 0.9% 2-21 Rate: 75 l IV 1,000 mL 22:13: ml/hr, Herm bernie 00 Infuse over: 13.3 hr, Route: IV, Dosing Weight 86.364 kg, Total Volume: 1,000, Start date: 11/21/22 16:13:00 RIPPER OPERATOR, Duration: 30 day, Stop date: 12/21/22 16:12:00 CDT, BSA: 1.93 m2, 0 normal 2023-0 No 1,000 mL, Memori a saline 0.9% 2-21 Rate: 75 l IV 1,000 mL 22:13: ml/hr, Herm bernie 00 Infuse over: 13.3 hr, Route: IV, Dosing Weight 86.364 kg, Total Volume: 1,000, Start date: 11/21/22 16:13:00 RIPPER OPERATOR, Duration: 30 day, Stop date: 12/21/22 16:12:00 CDT, BSA: 1.93 m2, 0 Vitamin D2 Yes 50,000 Memor ia 50,000 intl 2-21 IntlUnit = l units (1.25 18:29: 1 cap, PO, [place] mg) oral 00 qWeek, capsule then 1 [...] l units (1.25 18:29: 1 cap, PO, [place] mg) oral 00 qWeek, capsule then 1 cap qmonth, 0 Refill(s) Voltaren 0 Yes 2 gm, TOP, Mem oria Topical 1% 2-21 QID, PRN, l topical gel 18:29: 0 Ajay n 00 Refill(s) Vitamin D2 Yes 50,000 Memor ia 50,000 intl 2-21 IntlUnit = l units (1.25 18:29: 1 cap, PO, [place] mg) oral 00 qWeek, capsule then 1 cap qmonth, 0 Refill(s) Voltaren 0 Yes 2 gm, TOP, [facility] Topical 1% 2-21 QID, PRN, l topical gel 18:29: 0 Ajay n 00 Refill(s) Vitamin D2 Yes 50,000 Mem[facility] ia 50,000 intl 2-21 IntlUnit = l units (1.25 18:29: 1 cap, PO, [place] mg) oral 00 qWeek, capsule then 1 cap qmonth, 0 Refill(s) Voltaren 0 Yes 2 gm, TOP, [facility] Topical 1% 2-21 QID, PRN, l topical gel 18:29: 0 Ajay n 00 Refill(s) Vitamin D2 Yes 50,000 Mem[facility] ia 50,000 intl 2-21 IntlUnit = l units (1.25 18:29: 1 cap, PO, [place] mg) oral 00 qWeek, capsule then 1 cap qmonth, 0 Refill(s) Voltaren Yes 2 gm, TOP, [facility] Topical 1% 2-21 QID, PRN, l topical gel 18:29: 0 Ajay n 00 Refill(s) Vitamin D2 Yes 50,000 Mem[facility] ia 50,000 intl 2-21 IntlUnit = l units (1.25 18:29: 1 cap, PO, [place] mg) oral 00 qWeek, capsule then 1 [...] l units (1.25 18:29: 1 cap, PO, [place] mg) oral 00 qWeek, capsule then 1 cap qmonth, 0 Refill(s) Voltaren 0 Yes 2 gm, TOP, [facility] Topical 1% 2-21 QID, PRN, l topical gel 18:29: 0 Ajay n 00 Refill(s) Vitamin D2 0 Yes 50,000 Mem[facility] ia 50,000 intl 2-21 IntlUnit = l units (1.25 18:29: 1 cap, PO, [place] mg) oral 00 qWeek, capsule then 1 [...] l units (1.25 18:29: 1 cap, PO, [place] mg) oral 00 qWeek, capsule then 1 cap qmonth, 0 Refill(s) fluocinonid 0 Yes 1 appl, Mem oria e topical 2-21 TOP, BID, l 0.05% 18:28: 0 Raul solution 00 Refill(s) ketoconazol 0 Yes 1 appl, [facility] e topical 2-21 TOP, BID, l 2% cream 18:28: 0 [place] 00 Refill(s) halobetasol 0 Yes 1 appl, [facility] topical 2-21 TOP, BID, l 0.05% cream 18:28: PRN, 0 Herm bernie 00 Refill(s) fluocinonid 0 Yes 1 appl, [facility] e topical 2-21 TOP, BID, l 0.05% 18:28: 0 Raul solution 00 Refill(s) ketoconazol 2022-0 Yes 1 appl, [facility] e topical 2-21 TOP, BID, l 2% cream 18:28: 0 [place] 00 Refill(s) halobetasol 2023-0 Yes 1 appl, [facility] topical 2-21 TOP, BID, l 0.05% cream 18:28: PRN, 0 Herm bernie 00 Refill(s) fluocinonid 3-0 Yes 1 appl, [facility] e topical 2-21 TOP, BID, l 0.05% 18:28: 0 [place] solution 00 Refill(s) ketoconazol 3-0 Yes 1 appl, [facility] e topical 2-21 TOP, BID, l 2% cream 18:28: 0 Raul 00 Refill(s) halobetasol 3-0 Yes 1 appl, [facility] topical 2-21 TOP, BID, l 0.05% cream 18:28: PRN, 0 Herm bernie 00 Refill(s) fluocinonid 3-0 Yes 1 appl, [facility] e topical 2-21 TOP, BID, l 0.05% 18:28: 0 [place] solution 00 Refill(s) ketoconazol 3-0 Yes 1 appl, [facility]ria e topical 2-21 TOP, BID, l 2% cream 18:28: 0 [place] 00 Refill(s) halobetasol 3-0 Yes 1 appl, [facility] topical 2-21 TOP, BID, l 0.05% cream 18:28: PRN, 0 Herm bernie 00 Refill(s) fluocinonid 3-0 Yes 1 appl, [facility]ria e topical 2-21 TOP, BID, l 0.05% 18:28: 0 Raul solution 00 Refill(s) ketoconazol 3-0 Yes 1 appl, [facility] e topical 2-21 TOP, BID, l 2% cream 18:28: 0 [place] 00 Refill(s) halobetasol 3-0 Yes 1 appl, [...] 2-21 TOP, BID, l 0.05% 18:28: 0 [place] solution 00 Refill(s) ketoconazol 2023-0 Yes 1 appl, Mem [facility]ria e topical 2-21 TOP, BID, l 2% cream 18:28: 0 Raul 00 Refill(s) halobetasol 2023-0 Yes 1 appl, [facility] topical 2-21 TOP, BID, l 0.05% cream 18:28: PRN, 0 Herm bernie 00 Refill(s) fluocinonid 3-0 Yes 1 appl, [facility] e topical 2-21 TOP, BID, l 0.05% 18:28: 0 [place] solution 00 Refill(s) ketoconazol 3-0 Yes 1 [...] 2-21 TOP, BID, l 0.05% 18:28: 0 [place] solution 00 Refill(s) ketoconazol 2023-0 Yes 1 appl, Mem [facility]ria e topical 2-21 TOP, BID, l 2% cream 18:28: 0 Raul 00 Refill(s) halobetasol 2022-0 Yes 1 appl, [facility] topical 2-21 TOP, BID, l 0.05% cream 18:28: PRN, 0 Herm bernie 00 Refill(s) fluocinonid 2022-0 Yes 1 appl, [facility] e topical 2-21 TOP, BID, l 0.05% 18:28: 0 [place] solution 00 Refill(s) ketoconazol 2022-0 Yes 1 appl, Mem [facility]ria e topical 2-21 TOP, BID, l 2% cream 18:28: 0 Raul 00 Refill(s) halobetasol 2022-0 Yes 1 appl, [facility] topical 2-21 TOP, BID, l 0.05% cream 18:28: PRN, 0 Herm bernie 00 Refill(s) levothyroxi 0 Yes 112 Memori a ne [...] 2-21 tab, PO, l 18:27: Daily, 0 [place] 00 Refill(s) Pepcid 40 2022-0 Yes 40 mg = 1 [facility] mg oral 2-21 tab, PO, l tablet 18:27: Bedtime, 0 Jessie nn 00 Refill(s) primidone 2023-0 Yes 50 mg = 1 Mem oria [...] 2-21 tab, PO, l 18:27: Daily, 0 [place] 00 Refill(s) Pepcid 40 2022-0 Yes 40 [...] Bedtime, 0 Jessie nn 00 Refill(s) primidone 2023-0 Yes 50 mg = 1 Mem oria [...] 18:26: Daily, 0 Raul 00 Refill(s) donepezil Yes 10 mg = 1 [facility] 10 mg oral 2-21 tab, PO, l tablet 18:26: Daily, 0 Raul 00 Refill(s) NIFEdipine 0 Yes 30 mg = 1 Me moria (Eqv-Procar 2-21 tab, PO, l afua XL) 30 18:26: Daily, 0 Her ivory mg oral 00 Refill(s) tablet, extended release Kerendia 10 Yes 10 mg = 1 M emoria mg oral 2-21 tab, PO, l tablet 18:26: Daily, 0 [place] 00 Refill(s) lovastatin Yes 20 mg = 1 Me moria 20 mg oral 2-21 tab, PO, l tablet 18:26: Daily, 0 Raul 00 Refill(s) donepezil 2023-0 Yes 10 mg = 1 Mem oria 10 mg oral 2-21 tab, PO, l tablet 18:26: Daily, 0 [place] 00 Refill(s) NIFEdipine 2022-0 Yes 30 mg [...] tab, PO, l tablet 18:26: Daily, 0 [place] 00 Refill(s) donepezil 2022-0 Yes 10 mg = 1 Mem oria 10 mg oral 2-21 tab, PO, l tablet 18:26: Daily, 0 [place] 00 Refill(s) NIFEdipine 2022-0 Yes 30 mg = 1 Me moria (Eqv-Procar 2-21 tab, PO, l afua XL) 30 18:26: Daily, 0 Her ivory mg oral 00 Refill(s) tablet, extended release Kerendia 10 0 Yes 10 mg = 1 M emoria mg oral 2-21 tab, PO, l tablet 18:26: Daily, 0 [place] 00 Refill(s) lovastatin 2022-0 Yes 20 mg = 1 Me moria 20 mg oral 2-21 tab, PO, l tablet 18:26: Daily, 0 Raul 00 Refill(s) donepezil 2022-0 Yes 10 mg = 1 Mem oria 10 mg oral 2-21 tab, PO, l tablet 18:26: Daily, 0 [place] 00 Refill(s) NIFEdipine 2022-0 Yes 30 mg [...] tab, PO, l tablet 18:26: Daily, 0 [place] 00 Refill(s) donepezil 2022-0 Yes 10 mg [...] tab, PO, l tablet 18:26: Daily, 0 [place] 00 Refill(s) lovastatin 2022-0 Yes 20 mg = 1 Me moria 20 mg oral 2-21 tab, PO, l tablet 18:26: Daily, 0 [place] 00 Refill(s) donepezil 2022-0 Yes 10 mg [...] tab, PO, l tablet 18:26: Daily, 0 [place] 00 Refill(s) lovastatin 2022-0 Yes 20 mg = 1 Me moria 20 mg oral 2-21 tab, PO, l tablet 18:26: Daily, 0 [place] 00 Refill(s) donepezil 2022-0 Yes 10 mg [...] tab, PO, l tablet 18:26: Daily, 0 [place] 00 Refill(s) donepezil 2022-0 Yes 10 mg [...] tab, PO, l tablet 18:26: Daily, 0 [place] 00 Refill(s) donepezil 2022-0 Yes 10 mg = 1 Mem oria 10 mg oral 2-21 tab, PO, l tablet 18:26: Daily, 0 [place] 00 Refill(s) NIFEdipine 2022-0 Yes 30 mg [...] tab, PO, l tablet 18:26: Daily, 0 [place] 00 Refill(s) lovastatin 2022-0 Yes 20 mg = 1 Me moria 20 mg oral 2-21 tab, PO, l tablet 18:26: Daily, 0 [place] 00 Refill(s) Coreg 25 mg 2022-0 Yes 25 mg = 1 M emoria oral tablet 2-21 tab, PO, l 18:25: BID, 0 [place] 00 Refill(s) Lexapro 20 2022-0 Yes 20 [...] 2-21 tab, PO, l 18:25: BID, 0 [place] 00 Refill(s) Lexapro 20 2022-0 Yes 20 mg = 1 Me moria mg oral 2-21 tab, PO, l tablet 18:25: BID, 0 Raul 00 Refill(s) rOPINIRole 3-0 Yes 4 mg = 1 Mem oria 4 mg oral 2-21 tab, PO, l tablet 18:25: BID, 0 Raul 00 Refill(s) Coreg 25 mg 2022-0 Yes 25 mg = 1 M emoria oral tablet 2-21 tab, PO, l 18:25: BID, 0 Raul 00 Refill(s) Lexapro 20 3-0 Yes 20 mg = 1 Me moria mg oral 2-21 tab, PO, l tablet 18:25: BID, 0 Raul 00 Refill(s) rOPINIRole 3-0 Yes 4 mg = 1 Mem oria 4 mg oral 2-21 tab, PO, l tablet 18:25: BID, 0 Raul 00 Refill(s) Coreg 25 mg 2022-0 Yes 25 mg = 1 M emoria oral tablet 2-21 tab, PO, l 18:25: BID, 0 [place] 00 Refill(s) Lexapro 20 2023-0 Yes 20 [...] tab, PO, l tablet 18:25: BID, 0 [place] 00 Refill(s) rOPINIRole 2023-0 Yes 4 mg = 1 Mem oria 4 mg oral 2-21 tab, PO, l tablet 18:25: BID, 0 Raul 00 Refill(s) Coreg 25 mg 2023-0 Yes 25 mg = 1 M emoria oral tablet 2-21 tab, PO, l 18:25: BID, 0 [place] 00 Refill(s) Lexapro 20 2023-0 Yes 20 [...] 2-21 tab, PO, l 18:25: BID, 0 [place] 00 Refill(s) Lexapro 20 2023-0 Yes 20 mg = 1 Me moria mg oral 2-21 tab, PO, l tablet 18:25: BID, 0 [place] 00 Refill(s) rOPINIRole 2023-0 Yes 4 mg = 1 Mem oria 4 mg oral 2-21 tab, PO, l tablet 18:25: BID, 0 [place] 00 Refill(s) Coreg 25 mg 2023-0 Yes 25 mg = 1 M emoria oral tablet 2-21 tab, PO, l 18:25: BID, 0 Raul 00 Refill(s) Lexapro 20 2023-0 Yes 20 mg = 1 Me moria mg oral 2-21 tab, PO, l tablet 18:25: BID, 0 [place] 00 Refill(s) rOPINIRole 2023-0 Yes 4 mg = 1 Mem oria 4 mg oral 2-21 tab, PO, l tablet 18:25: BID, 0 [place] 00 Refill(s) Coreg 25 mg 3-0 Yes 25 mg = 1 M emoria oral tablet 2-21 tab, PO, l 18:25: BID, 0 Raul 00 Refill(s) Lexapro 20 2023-0 Yes 20 mg = 1 Me moria mg oral 2-21 tab, PO, l tablet 18:25: BID, 0 [place] 00 Refill(s) rOPINIRole 2023-0 Yes 4 mg [...] 18:25: BID, 0 Raul 00 Refill(s) pantoprazol 2023-0 Yes 40 mg = 1 M emoria e 40 mg 2-21 tab, PO, l oral 18:24: BID, 0 Raul enteric 00 Refill(s) coated tablet pantoprazol 2023-0 Yes 40 mg = 1 M emoria e 40 mg 2-21 tab, PO, l oral 18:24: BID, 0 [place] enteric 00 Refill(s) coated tablet pantoprazol 2023-0 [...] tab, PO, l oral 18:24: BID, 0 [place] enteric 00 Refill(s) coated tablet pantoprazol 2023-0 [...] tab, PO, l oral 18:24: BID, 0 [place] enteric 00 Refill(s) coated tablet pantoprazol 2023-0 [...] am 2-21 Same as l 15:00: Keppra [place] 00 MEDICATION WASTE Product Size: 500 mg Product Wasted: ___ mg docusate No Notes: Memoria 2-21 (Same as: l 15:00: Colace) [place] 00 (Do Not Crush) senna No Notes: [...] am 2-21 Same as l 15:00: Keppra [place] 00 MEDICATION WASTE Product Size: 500 mg Product Wasted: ___ mg docusate No Notes: [facility]oria 2-21 (Same as: l 15:00: Colace) [place] 00 (Do Not Crush) senna No Notes: [facility] 2-21 (Same as: l 15:00: Senokot) [place] 00 lidocaine No Notes: Memori a topical 2-21 Patch is l 15:00: applied to [place] 00 intact skin to cover painful area for up to 12 hours in a 24-hour period (12 hours on and 12 hours off). Please indicate the location of applicatio n site. Site 1: Remove old patch before applicatio n of new patch. (Same as Aspercreme Lidocaine Patch) Saline No Notes: Memoria Flush 0.9% 2-21 (Same as: l 15:00: BD [place] 00 Posiflush) levETIRAcet No Notes: Jose Francisco zhang am 2-21 Same as l 15:00: Keppra [place] 00 MEDICATION WASTE Product Size: 500 mg Product Wasted: ___ mg docusate No Notes: Memoria 2-21 (Same as: l 15:00: Colace) [place] 00 (Do Not Crush) senna No Notes: [...] 0.9% 2-21 (Same as: l 15:00: BD [place] 00 Posiflush) levETIRAcet No Notes: Jose Francisco zhang am 2-21 Same as l 15:00: Keppra [place] 00 MEDICATION WASTE Product Size: 500 mg Product Wasted: ___ mg docusate No Notes: Memoria 2-21 (Same as: l 15:00: Colace) [place] 00 (Do Not Crush) senna No Notes: Memoria 2-21 (Same as: l 15:00: Senokot) [place] 00 lidocaine No Notes: Memori a topical [...] am 2-21 Same as l 15:00: Keppra [place] 00 MEDICATION WASTE Product Size: 500 mg Product Wasted: ___ mg docusate No Notes: Memoria 2-21 (Same as: l 15:00: Colace) [place] 00 (Do Not Crush) senna No Notes: Memoria 2-21 (Same as: l 15:00: Senokot) [place] 00 lidocaine No Notes: Memori a topical 2-21 Patch is l 15:00: applied to [place] 00 intact skin to cover painful area for up to 12 hours in a 24-hour period (12 hours on and 12 hours off). Please indicate the location of applicatio n site. Site 1: Remove old patch before applicatio n of new patch. (Same as Aspercreme Lidocaine Patch) Saline No Notes: Memoria Flush 0.9% 2-21 (Same as: l 15:00: BD [place] 00 Posiflush) levETIRAcet No Notes: Jose Francisco zhang am 2-21 Same as l 15:00: Keppra [place] 00 MEDICATION WASTE Product Size: 500 mg Product Wasted: ___ mg docusate No Notes: Memoria 2-21 (Same as: l 15:00: Colace) [place] 00 (Do Not Crush) senna No Notes: Memoria 2-21 (Same as: l 15:00: Senokot) [place] 00 lidocaine No Notes: Memori a topical 2-21 Patch is l 15:00: applied to [place] 00 intact skin to cover painful area [...] am 2-21 Same as l 15:00: Keppra [place] 00 MEDICATION WASTE Product Size: 500 mg Product Wasted: ___ mg docusate No Notes: Memoria 2-21 (Same as: l 15:00: Colace) [place] 00 (Do Not Crush) senna No Notes: Memoria 2-21 (Same as: l 15:00: Senokot) [place] 00 lidocaine No Notes: Memori a topical 2-21 Patch is l 15:00: applied to [place] 00 intact skin to cover painful area [...] levETIRAcet No Notes: Jose Francisco zhang am - Same as l 15:00: Keppra [place] 00 MEDICATION WASTE Product Size: 500 mg Product Wasted: ___ mg docusate No Notes: Memoria 2-21 (Same as: l 15:00: Colace) [place] (Do [...] Rate: 50 l 0.9% IV 14:47: ml/hr, [place] 1,000 mL 00 Infuse over: 20 hr, Route: IV, Dosing Weight 86.364 kg, Total Volume: 1,000, Start date: 11/21/22 8:47:00 RIPPER OPERATOR, Duration: 30 day, Stop date: 12/21/22 8:46:00 CDT, BSA: 1.93 m2, 0 acetaminoph No Notes: Do M emoria en 2-21 not exceed l 14:47: 4 gm/day. [place] 00 (Same as: Tylenol) bisacodyl No Notes: Memori a 2-21 (Same As: l 14:47: Dulcolax, [place] Bisco-Lax) ondansetron No Notes: Jose Francisco zhang [...] Weight 86.364, kg, Start date: 11/21/22 8:47:00 RIPPER OPERATOR, Duration: 3 doses or times, Stop date: 11/21/22 9:17:00 RIPPER OPERATOR, 0 Saline No Notes: Memoria Flush 0.9% 2-21 (Same as: l 14:47: BD Posiflush) Sodium No 1,000 mL, Memori a Chloride 2-21 Rate: 50 l 0.9% IV 14:47: ml/hr, [place] 1,000 mL 00 Infuse over: 20 hr, Route: IV, Dosing Weight 86.364 kg, Total Volume: 1,000, Start date: 11/21/22 8:47:00 RIPPER OPERATOR, Duration: 30 day, Stop date: 12/21/22 8:46:00 [...] Weight 86.364, kg, Start date: 11/21/22 8:47:00 RIPPER OPERATOR, Duration: 3 doses or times, Stop date: 11/21/22 9:17:00 RIPPER OPERATOR, 0 Saline No Notes: Memoria Flush 0.9% 2-21 (Same as: l 14:47: BD Posiflush) Sodium No 1,000 mL, Memori a Chloride 2-21 Rate: 50 l 0.9% IV 14:47: ml/hr, [place] 1,000 mL 00 Infuse over: 20 hr, Route: IV, Dosing Weight 86.364 kg, Total Volume: 1,000, Start date: 11/21/22 8:47:00 RIPPER OPERATOR, Duration: 30 day, Stop date: 12/21/22 8:46:00 CDT, BSA: 1.93 m2, 0 acetaminoph No Notes: Do M emoria en 2-21 not exceed l 14:47: 4 gm/day. Raul 00 (Same as: Tylenol) bisacodyl No Notes: Memori a 2-21 (Same As: l 14:47: Dulcolax, [place] 00 Bisco-Lax) ondansetron No Notes: Jose Francisco [...] Weight 86.364, kg, Start date: 11/21/22 8:47:00 RIPPER OPERATOR, Duration: 3 doses or times, Stop date: 11/21/22 9:17:00 RIPPER OPERATOR, 0 Saline No Notes: Memoria Flush 0.9% 2-21 (Same as: l 14:47: BD [place] 00 Posiflush) Sodium No 1,000 mL, Memori a Chloride 2-21 Rate: 50 l 0.9% IV 14:47: ml/hr, [place] 1,000 mL 00 Infuse over: 20 hr, Route: IV, Dosing Weight 86.364 kg, Total Volume: 1,000, Start date: 11/21/22 8:47:00 RIPPER OPERATOR, Duration: 30 day, Stop date: 12/21/22 8:46:00 CDT, BSA: 1.93 m2, 0 acetaminoph No Notes: Do M emoria en 2-21 not exceed l 14:47: 4 gm/day. Raul 00 (Same as: Tylenol) bisacodyl No Notes: Memori a 2-21 (Same As: l 14:47: Dulcolax, Raul 00 Bisco-Lax) ondansetron No Notes: [...] Weight 86.364, kg, Start date: 11/21/22 8:47:00 RIPPER OPERATOR, Duration: 3 doses or times, Stop date: 11/21/22 9:17:00 RIPPER OPERATOR, 0 Saline No Notes: Memoria Flush 0.9% 2-21 (Same as: l 14:47: BD Raul 00 Posiflush) Sodium No 1,000 mL, Memori a Chloride 2-21 Rate: 50 l 0.9% IV 14:47: ml/hr, Raul 1,000 mL 00 Infuse over: 20 hr, Route: IV, Dosing Weight 86.364 kg, Total Volume: 1,000, Start date: 11/21/22 8:47:00 RIPPER OPERATOR, Duration: 30 day, Stop date: 12/21/22 8:46:00 CDT, BSA: 1.93 m2, 0 acetaminoph No Notes: Do M emoria en 2-21 not exceed l 14:47: 4 gm/day. [place] 00 (Same as: Tylenol) bisacodyl No Notes: [...] Weight 86.364, kg, Start date: 11/21/22 8:47:00 RIPPER OPERATOR, Duration: 3 doses or times, Stop date: 11/21/22 9:17:00 RIPPER OPERATOR, 0 Saline No Notes: Memoria Flush 0.9% 2-21 (Same as: l 14:47: BD Posiflush) Sodium No 1,000 mL, Memori a Chloride 2-21 Rate: 50 l 0.9% IV 14:47: ml/hr, Raul 1,000 mL 00 Infuse over: 20 hr, Route: IV, Dosing Weight 86.364 kg, Total Volume: 1,000, Start date: 11/21/22 8:47:00 RIPPER OPERATOR, Duration: 30 day, Stop date: 12/21/22 8:46:00 CDT, BSA: 1.93 m2, 0 acetaminoph No Notes: Do M emoria en 2-21 not exceed l 14:47: 4 gm/day. [place] 00 (Same as: Tylenol) bisacodyl No Notes: Memori a 2-21 (Same As: l 14:47: Dulcolax, [place] 00 Bisco-Lax) ondansetron No Notes: Jose Francisco [...] Weight 86.364, kg, Start date: 11/21/22 8:47:00 RIPPER OPERATOR, Duration: 3 doses or times, Stop date: 11/21/22 9:17:00 RIPPER OPERATOR, 0 Saline No Notes: Memoria Flush 0.9% 2-21 (Same as: l 14:47: BD Posiflush) Sodium No 1,000 mL, Memori a Chloride 2-21 Rate: 50 l 0.9% IV 14:47: ml/hr, Raul 1,000 mL 00 Infuse over: 20 hr, Route: IV, Dosing Weight 86.364 kg, Total Volume: 1,000, Start date: 11/21/22 8:47:00 RIPPER OPERATOR, Duration: 30 day, Stop date: 12/21/22 8:46:00 CDT, BSA: 1.93 m2, 0 acetaminoph No Notes: Do M emoria en 2-21 not exceed l 14:47: 4 gm/day. (Same as: Tylenol) bisacodyl No Notes: Memori a 2-21 (Same As: l 14:47: Dulcolax, Raul 00 Bisco-Lax) ondansetron No Notes: [...] Weight 86.364, kg, Start date: 11/21/22 8:47:00 RIPPER OPERATOR, Duration: 3 doses or times, Stop date: 11/21/22 9:17:00 RIPPER OPERATOR, 0 Saline No Notes: Memoria Flush 0.9% 2-21 (Same as: l 14:47: BD Posiflush) Sodium No 1,000 mL, Memori a Chloride 2-21 Rate: 50 l 0.9% IV 14:47: ml/hr, Raul 1,000 mL 00 Infuse over: 20 hr, Route: IV, Dosing Weight 86.364 kg, Total Volume: 1,000, Start date: 11/21/22 8:47:00 RIPPER OPERATOR, Duration: 30 day, Stop date: 12/21/22 8:46:00 CDT, BSA: 1.93 m2, 0 acetaminoph No Notes: Do M emoria en 2-21 not exceed l 14:47: 4 gm/day. [place] 00 (Same as: Tylenol) bisacodyl No Notes: [...] Weight 86.364, kg, Start date: 11/21/22 8:47:00 RIPPER OPERATOR, Duration: 3 doses or times, Stop date: 11/21/22 9:17:00 RIPPER OPERATOR, 0 Saline No Notes: Memoria Flush 0.9% 2-21 (Same as: l 14:47: BD Posiflush) Sodium No 1,000 mL, Memori a Chloride 2-21 Rate: 50 l 0.9% IV 14:47: ml/hr, Raul 1,000 mL 00 Infuse over: 20 hr, Route: IV, Dosing Weight 86.364 kg, Total Volume: 1,000, Start date: 11/21/22 8:47:00 RIPPER OPERATOR, Duration: 30 day, Stop date: 12/21/22 8:46:00 CDT, BSA: 1.93 m2, 0 acetaminoph No Notes: Do M emoria en 2-21 not exceed l 14:47: 4 gm/day. [place] 00 (Same as: Tylenol) bisacodyl No Notes: [...] Weight 86.364, kg, Start date: 11/21/22 8:47:00 RIPPER OPERATOR, Duration: 3 doses or times, Stop date: 11/21/22 9:17:00 RIPPER OPERATOR, 0 Saline No Notes: Memoria Flush 0.9% 2-21 (Same as: l 14:47: BD Posiflush) Tylenol No 1,000 mg, Memor ia 2-21 Route: PO, l 14:03: ONCE, Dosing Weight 86.364, kg, Start date: 11/21/22 8:03:00 RIPPER OPERATOR, Stop date: 11/21/22 8:03:00 RIPPER OPERATOR Tylenol 2023-0 No 1,000 mg, Memor ia 2-21 Route: PO, l 14:03: ONCE, Dosing Weight 86.364, kg, Start date: 11/21/22 8:03:00 RIPPER OPERATOR, Stop date: 11/21/22 8:03:00 RIPPER OPERATOR Tylenol 2023-0 No 1,000 mg, Memor ia 2-21 Route: PO, l 14:03: ONCE, Dosing Weight 86.364, kg, Start date: 11/21/22 8:03:00 RIPPER OPERATOR, Stop date: 11/21/22 8:03:00 RIPPER OPERATOR Tylenol 2023-0 No 1,000 mg, Memor ia 2-21 Route: PO, l 14:03: ONCE, Dosing Weight 86.364, kg, Start date: 11/21/22 8:03:00 RIPPER OPERATOR, Stop date: 11/21/22 8:03:00 RIPPER OPERATOR Tylenol 2023-0 No 1,000 mg, Memor ia 2-21 Route: PO, l 14:03: ONCE, Dosing Weight 86.364, kg, Start date: 11/21/22 8:03:00 RIPPER OPERATOR, Stop date: 11/21/22 8:03:00 RIPPER OPERATOR Tylenol 2023-0 No 1,000 mg, Memor ia 2-21 Route: PO, l 14:03: ONCE, Dosing Weight 86.364, kg, Start date: 11/21/22 8:03:00 RIPPER OPERATOR, Stop date: 11/21/22 8:03:00 RIPPER OPERATOR Tylenol 2023-0 No 1,000 mg, Memor ia 2-21 Route: PO, l 14:03: ONCE, Dosing Weight 86.364, kg, Start date: 11/21/22 8:03:00 RIPPER OPERATOR, Stop date: 11/21/22 8:03:00 RIPPER OPERATOR Tylenol 2023-0 No 1,000 mg, Memor ia 2-21 Route: PO, l 14:03: ONCE, Dosing Weight 86.364, kg, Start date: 11/21/22 8:03:00 RIPPER OPERATOR, Stop date: 11/21/22 8:03:00 RIPPER OPERATOR Tylenol No 1,000 mg, Memor ia 2-21 Route: PO, l 14:03: ONCE, Dosing Weight 86.364, kg, Start date: 11/21/22 8:03:00 RIPPER OPERATOR, Stop date: 11/21/22 8:03:00 RIPPER OPERATOR Saline No Notes: Memoria Flush 0.9% 2-21 (Same as: l 12:05: BD [place] Posiflush) Saline No Notes: Memoria Flush 0.9% 2-21 (Same as: l 12:05: BD Raul Posiflush) Saline No Notes: Memoria Flush 0.9% 2-21 (Same as: l 12:05: BD Raul Posiflush) Saline No Notes: Memoria Flush 0.9% 2-21 (Same as: l 12:05: BD Raul Posiflush) Saline No Notes: Memoria Flush 0.9% 2-21 (Same as: l 12:05: BD [place] 00 Posiflush) Saline No Notes: Memoria Flush 0.9% 2-21 (Same as: l 12:05: BD [place] Posiflush) Saline No Notes: Memoria Flush 0.9% [...] nn 00 90 tab, 2 Refill(s), Pharmacy: [facility] #[id number], 149.86, cm, 11/02/21 14:32:00 RIPPER OPERATOR, Height, 90.455, kg, 11/02/21 14:32:00 RIPPER OPERATOR, Weight primidone 2022-0 Yes 50 mg = 1 Mem oria 50 mg oral 2-02 tab, PO, l tablet 20:46: Bedtime, # Jessie nn 00 90 tab, 2 Refill(s), Pharmacy: [facility] #[id number], 149.86, cm, 11/02/21 14:32:00 RIPPER OPERATOR, Height, 90.455, kg, 11/02/21 14:32:00 RIPPER OPERATOR, Weight primidone 2022-0 Yes 50 mg = 1 Mem oria 50 mg oral 2-02 tab, PO, l tablet 20:46: Bedtime, # Jessie nn 00 90 tab, 2 Refill(s), Pharmacy: [facility] #[id number], 149.86, cm, 11/02/21 14:32:00 RIPPER OPERATOR, Height, 90.455, kg, 11/02/21 14:32:00 RIPPER OPERATOR, Weight primidone 2022-0 Yes 50 mg = 1 Mem oria 50 mg oral 2-02 tab, PO, l tablet 20:46: Bedtime, # Jessie nn 00 90 tab, 2 Refill(s), Pharmacy: [facility] #[id number], 149.86, cm, 11/02/21 14:32:00 RIPPER OPERATOR, Height, 90.455, kg, 11/02/21 14:32:00 RIPPER OPERATOR, Weight primidone 2022-0 Yes 50 mg = 1 Mem oria 50 mg oral 2-02 tab, PO, l tablet 20:46: Bedtime, # Jessie nn 00 90 tab, 2 Refill(s), Pharmacy: [facility] #[id number], 149.86, cm, 11/02/21 14:32:00 RIPPER OPERATOR, Height, 90.455, kg, 11/02/21 14:32:00 RIPPER OPERATOR, Weight primidone 2022-0 Yes 50 mg = 1 Mem oria 50 mg oral 2-02 tab, PO, l tablet 20:46: Bedtime, # Jessie nn 00 90 tab, 2 Refill(s), Pharmacy: [facility] #[id number], 149.86, cm, 11/02/21 14:32:00 RIPPER OPERATOR, Height, 90.455, kg, 11/02/21 14:32:00 RIPPER OPERATOR, Weight primidone 2022-0 Yes 50 mg = 1 Mem oria 50 mg oral 2-02 tab, PO, l tablet 20:46: Bedtime, # Jessie nn 00 90 tab, 2 Refill(s), Pharmacy: [facility] #[id number], 149.86, cm, 11/02/21 14:32:00 RIPPER OPERATOR, Height, 90.455, kg, 11/02/21 14:32:00 RIPPER OPERATOR, Weight primidone 2022-0 Yes 50 mg = 1 Mem oria 50 mg oral 2-02 tab, PO, l tablet 20:46: Bedtime, # Jessie nn 00 90 tab, 2 Refill(s), Pharmacy: [facility] #[id number], 149.86, cm, 11/02/21 14:32:00 RIPPER OPERATOR, Height, 90.455, kg, 11/02/21 14:32:00 RIPPER OPERATOR, Weight primidone 2022-0 Yes 50 mg = 1 Mem oria 50 mg oral 2-02 tab, PO, l tablet 20:46: Bedtime, # Jessie nn 00 90 tab, 2 Refill(s), Pharmacy: [facility] #[id number], 149.86, cm, 11/02/21 14:32:00 RIPPER OPERATOR, Height, 90.455, kg, 11/02/21 14:32:00 RIPPER OPERATOR, Weight primidone 2022-0 Yes 50 mg = 1 Mem oria 50 mg oral 2-02 tab, PO, l tablet 20:46: Bedtime, # Jessie nn 00 90 tab, 2 Refill(s), Pharmacy: [facility] #[id number], 149.86, cm, 11/02/21 14:32:00 RIPPER OPERATOR, Height, 90.455, kg, 11/02/21 14:32:00 RIPPER OPERATOR, Weight primidone 2022-0 Yes 50 mg = 1 Mem oria 50 mg oral 2-02 tab, PO, l tablet 20:46: Bedtime, # Jessie nn 00 90 tab, 2 Refill(s), Pharmacy: [facility] #[id number], 149.86, cm, 11/02/21 14:32:00 RIPPER OPERATOR, Height, 90.455, kg, 11/02/21 14:32:00 RIPPER OPERATOR, Weight primidone 2022-0 Yes 50 mg = 1 Mem oria 50 mg oral 2-02 tab, PO, l tablet 20:46: Bedtime, # Jessie nn 00 90 tab, 2 Refill(s), Pharmacy: [facility] #[id number], 149.86, cm, 11/02/21 14:32:00 RIPPER OPERATOR, Height, 90.455, kg, 11/02/21 14:32:00 RIPPER OPERATOR, Weight primidone 2022-0 Yes 50 mg = 1 Mem oria 50 mg oral 2-02 tab, PO, l tablet 20:46: Bedtime, # Jessie nn 00 90 tab, 2 Refill(s), Pharmacy: [facility] #[id number], 149.86, cm, 11/02/21 14:32:00 RIPPER OPERATOR, Height, 90.455, kg, 11/02/21 14:32:00 RIPPER OPERATOR, Weight primidone 2022-0 Yes 50 mg = 1 Mem oria 50 mg oral 2-02 tab, PO, l tablet 20:46: Bedtime, # Jessie nn 00 90 tab, 2 Refill(s), Pharmacy: [facility] #[id number], 149.86, cm, 11/02/21 14:32:00 RIPPER OPERATOR, Height, 90.455, kg, 11/02/21 14:32:00 RIPPER OPERATOR, Weight primidone 2022-0 Yes 50 mg = 1 Mem oria 50 mg oral 2-02 tab, PO, l tablet 20:46: Bedtime, # Jessie nn 00 90 tab, 2 Refill(s), Pharmacy: [facility] #[id number], 149.86, cm, 11/02/21 14:32:00 RIPPER OPERATOR, Height, 90.455, kg, 11/02/21 14:32:00 RIPPER OPERATOR, Weight primidone 2022-0 Yes 50 mg = 1 Mem oria 50 mg oral 2-02 tab, PO, l tablet 20:46: Bedtime, # Jessie nn 00 90 tab, 2 Refill(s), Pharmacy: [facility] #[id number], 149.86, cm, 11/02/21 14:32:00 RIPPER OPERATOR, Height, 90.455, kg, 11/02/21 14:32:00 RIPPER OPERATOR, Weight NIFEdipine Yes TAKE 1 Memor ia [...] 2-02 TABLET BY l tablet 20:38: MOUTH [place] 00 EVERY DAY FOR 90 DAYS doxycycline [...] BY l CC) 30 mg 20:38: MOUTH [place] oral 00 EVERY DAY tablet, ON EMPTY extended STOMACH release FOR 30 DAYS Furosemide Yes TAKE 1 Memor ia 40 MG Oral 2-02 TABLET BY l Tablet 20:38: MOUTH [place] 00 EVERY DAY NEEDED FOR SWELLING tramadol Yes TAKE 1 Memoria hydrochlori 2-02 TABLET BY l de 50 MG 20:38: MOUTH [place] Oral Tablet 00 EVERY 6 TO 8 HOURS NEEDED predniSONE Yes TAKE 1 Memor ia 10 mg oral 2-02 TABLET BY l tablet 20:38: MOUTH Raul 00 EVERY DAY FOR 90 DAYS doxycycline Yes TAKE 1 Jose Francisco zhang hyclate 100 2-02 CAPSULE BY l MG Oral 20:38: MOUTH [place] Capsule 00 TWICE A DAY Colestipol Yes [...] 2-02 TABLET BY l Tablet 20:38: MOUTH Rual 00 EVERY DAY NEEDED FOR SWELLING tramadol Yes TAKE 1 Memoria hydrochlori 2-02 TABLET BY l de 50 MG 20:38: MOUTH [place] Oral Tablet 00 EVERY 6 TO 8 HOURS NEEDED predniSONE Yes TAKE 1 Memor ia 10 mg oral 2-02 TABLET BY l tablet 20:38: MOUTH [place] 00 EVERY DAY FOR 90 DAYS doxycycline [...] 2-02 TABLET BY l tablet 20:38: MOUTH [place] 00 THREE TIMES A DAY NIFEdipine Yes TAKE 1 Memor ia (Eqv-Adalat 2-02 TABLET BY l CC) 30 mg 20:38: MOUTH [place] oral 00 EVERY DAY tablet, ON EMPTY extended STOMACH release FOR 30 DAYS Furosemide Yes TAKE 1 Memor ia 40 MG Oral 2-02 TABLET BY l Tablet 20:38: MOUTH Raul 00 EVERY DAY NEEDED FOR SWELLING tramadol Yes TAKE 1 Memoria hydrochlori 2-02 TABLET BY l de 50 MG 20:38: MOUTH [place] Oral Tablet 00 EVERY 6 TO 8 HOURS NEEDED predniSONE Yes TAKE 1 Memor ia 10 mg oral 2-02 TABLET BY l tablet 20:38: MOUTH Raul 00 EVERY DAY FOR 90 DAYS doxycycline Yes TAKE 1 Jose Francisco zhang hyclate 100 2-02 CAPSULE BY l MG Oral 20:38: MOUTH [place] Capsule 00 TWICE A DAY Colestipol Yes TAKE 1 Memor ia Hydrochlori 2-02 TABLET BY l de 1000 MG 20:38: MOUTH Ajay n Oral Tablet 00 TWICE A DAY pantoprazol Yes TAKE 1 Jose Francisco zhang e 40 mg 2-02 TABLET BY l oral 20:38: MOUTH 2 [place] enteric 00 TIMES coated DAILY HALF tablet HOUR BEFORE BREAKFAST OR FIRST MEAL oxybutynin Yes TAKE 1 Memor ia 5 mg oral 2-02 TABLET BY l tablet 20:38: MOUTH [place] 00 THREE TIMES A DAY NIFEdipine Yes TAKE 1 Memor ia (Eqv-Adalat 2-02 TABLET BY l CC) 30 mg 20:38: MOUTH Raul oral 00 EVERY DAY tablet, ON EMPTY extended STOMACH release FOR 30 DAYS Furosemide Yes TAKE 1 Memor ia 40 MG Oral 2-02 TABLET BY l Tablet 20:38: MOUTH [place] 00 EVERY DAY NEEDED FOR SWELLING tramadol [...] TABLET BY l oral 20:38: MOUTH 2 [place] enteric 00 TIMES coated DAILY HALF tablet HOUR BEFORE BREAKFAST OR FIRST MEAL oxybutynin Yes TAKE 1 Memor ia 5 mg oral 2-02 TABLET BY l tablet 20:38: MOUTH [place] 00 THREE TIMES A DAY NIFEdipine Yes TAKE 1 Memor ia (Eqv-Adalat 2-02 TABLET BY l CC) 30 mg 20:38: MOUTH [place] oral 00 EVERY DAY tablet, ON EMPTY extended STOMACH release FOR 30 DAYS Furosemide Yes TAKE 1 Memor ia 40 MG Oral 2-02 TABLET BY l Tablet 20:38: MOUTH [place] 00 EVERY DAY NEEDED FOR SWELLING tramadol [...] CAPSULE BY l MG Oral 20:38: MOUTH [place] Capsule 00 TWICE A DAY Colestipol Yes [...] BY l CC) 30 mg 20:38: MOUTH [place] oral 00 EVERY DAY tablet, ON EMPTY extended STOMACH release FOR 30 DAYS Furosemide Yes TAKE 1 Memor ia 40 MG Oral 2-02 TABLET BY l Tablet 20:38: MOUTH [place] 00 EVERY DAY NEEDED FOR SWELLING tramadol Yes TAKE 1 Memoria hydrochlori 2-02 TABLET BY l de 50 MG 20:38: MOUTH [place] Oral Tablet 00 EVERY 6 TO 8 HOURS NEEDED predniSONE Yes TAKE 1 Memor ia 10 mg oral 2-02 TABLET BY l tablet 20:38: MOUTH [place] 00 EVERY DAY FOR 90 DAYS doxycycline [...] BY l CC) 30 mg 20:38: MOUTH [place] oral 00 EVERY DAY tablet, ON EMPTY extended STOMACH release FOR 30 DAYS Furosemide Yes TAKE 1 Memor ia 40 MG Oral 2-02 TABLET BY l Tablet 20:38: MOUTH [place] 00 EVERY DAY NEEDED FOR SWELLING tramadol [...] CAPSULE BY l MG Oral 20:38: MOUTH [place] Capsule 00 TWICE A DAY NIFEdipine Yes TAKE 1 Memor ia (Eqv-Adalat 2-02 TABLET BY l CC) 30 mg 20:38: MOUTH [place] oral 00 EVERY DAY tablet, ON EMPTY extended STOMACH release FOR 30 DAYS Furosemide Yes TAKE 1 Memor ia 40 MG Oral 2-02 TABLET BY l Tablet 20:38: MOUTH [place] 00 EVERY DAY NEEDED FOR SWELLING tramadol [...] CAPSULE BY l MG Oral 20:38: MOUTH [place] Capsule 00 TWICE A DAY Colestipol Yes [...] BY l CC) 30 mg 20:38: MOUTH [place] oral 00 EVERY DAY tablet, ON EMPTY extended STOMACH release FOR 30 DAYS Furosemide Yes TAKE 1 Memor ia 40 MG Oral 2-02 TABLET BY l Tablet 20:38: MOUTH [place] 00 EVERY DAY NEEDED FOR SWELLING tramadol Yes TAKE 1 Memoria hydrochlori 2-02 TABLET BY l de 50 MG 20:38: MOUTH [place] Oral Tablet 00 EVERY 6 TO 8 HOURS NEEDED predniSONE Yes TAKE 1 Memor ia 10 mg oral 2-02 TABLET BY l tablet 20:38: MOUTH [place] 00 EVERY DAY FOR 90 DAYS doxycycline [...] 2-02 TABLET BY l tablet 20:38: MOUTH [place] 00 THREE TIMES A DAY NIFEdipine Yes TAKE 1 Memor ia (Eqv-Adalat 2-02 TABLET BY l CC) 30 mg 20:38: MOUTH [place] oral 00 EVERY DAY tablet, ON EMPTY [...] TABLET BY l oral 20:38: MOUTH 2 [place] enteric 00 TIMES coated DAILY HALF tablet HOUR BEFORE BREAKFAST OR FIRST MEAL oxybutynin Yes TAKE 1 Memor ia 5 mg oral 2-02 TABLET BY l tablet 20:38: MOUTH Raul 00 THREE TIMES A DAY NIFEdipine Yes TAKE 1 Memor ia (Eqv-Adalat 2-02 TABLET BY l CC) 30 mg 20:38: MOUTH [place] oral 00 EVERY DAY tablet, ON EMPTY extended STOMACH release FOR 30 DAYS Furosemide Yes TAKE 1 Memor ia 40 MG Oral 2-02 TABLET BY l Tablet 20:38: MOUTH Raul 00 EVERY DAY NEEDED FOR SWELLING tramadol Yes TAKE 1 Memoria hydrochlori 2-02 TABLET BY l de 50 MG 20:38: MOUTH [place] Oral Tablet 00 EVERY 6 TO 8 [...] TABLET BY l oral 20:38: MOUTH 2 [place] enteric 00 TIMES coated DAILY HALF tablet HOUR BEFORE BREAKFAST OR FIRST MEAL oxybutynin Yes TAKE 1 Memor ia 5 mg oral 2-02 TABLET BY l tablet 20:38: MOUTH [place] 00 THREE TIMES A DAY NIFEdipine Yes TAKE 1 Memor ia (Eqv-Adalat 2-02 TABLET BY l CC) 30 mg 20:38: MOUTH Raul oral 00 EVERY DAY tablet, ON EMPTY extended STOMACH release FOR 30 DAYS Furosemide Yes TAKE 1 Memor ia 40 MG Oral 2-02 TABLET BY l Tablet 20:38: MOUTH [place] 00 EVERY DAY NEEDED FOR SWELLING tramadol Yes TAKE 1 Memoria hydrochlori 2-02 TABLET BY l de 50 MG 20:38: MOUTH [place] Oral Tablet 00 EVERY 6 TO 8 HOURS NEEDED predniSONE Yes TAKE 1 Memor ia 10 mg oral 2-02 TABLET BY l tablet 20:38: MOUTH Raul 00 EVERY DAY FOR 90 DAYS doxycycline Yes TAKE 1 Jose Francisco zhang hyclate 100 2-02 CAPSULE BY l MG Oral 20:38: MOUTH [place] Capsule 00 TWICE A DAY Colestipol Yes TAKE 1 Memor ia Hydrochlori 2-02 TABLET BY l de 1000 MG 20:38: MOUTH Ajay n Oral Tablet 00 TWICE A DAY pantoprazol Yes TAKE 1 Jose Farncisco zhang e 40 mg 2-02 TABLET BY [...] 2-02 TABLET BY l Tablet 20:38: MOUTH Rual 00 EVERY DAY NEEDED FOR SWELLING tramadol [...] TABLET BY l oral 20:38: MOUTH 2 [place] enteric 00 TIMES coated DAILY HALF tablet [...] 2-02 TABLET BY l tablet 20:38: MOUTH [place] 00 EVERY DAY FOR 90 DAYS doxycycline [...] TABLET BY l oral 20:38: MOUTH 2 [place] enteric 00 TIMES coated DAILY HALF tablet HOUR BEFORE BREAKFAST OR FIRST MEAL oxybutynin Yes TAKE 1 Memor ia 5 mg oral 2-02 TABLET BY l tablet 20:38: MOUTH [place] 00 THREE TIMES A DAY NIFEdipine Yes [...] BY l de 50 MG 20:38: MOUTH [place] Oral Tablet 00 EVERY 6 TO 8 [...] TABLET BY l oral 20:38: MOUTH 2 [place] enteric 00 TIMES coated DAILY HALF tablet HOUR BEFORE BREAKFAST OR FIRST MEAL oxybutynin Yes TAKE 1 Memor ia 5 mg oral 2-02 TABLET BY l tablet 20:38: MOUTH Raul 00 THREE TIMES A DAY donepezil 2021-0 Yes = 1 tab, Jose Francisco zhang 10 mg oral 3-26 PO, Daily, l tablet 19:08: # 90 tab, Ajay n 00 1 Refill(s), Pharmacy: [facility] #[id number], 149.86, cm, 12/24/20 13:59:00 CDT, Height, 93.182, kg, 12/24/20 13:59:00 CDT, Weight primidone 2020-0 Yes 50 mg = 1 Mem oria 50 mg oral 3-26 tab, PO, l tablet 19:08: Bedtime, # Jessie nn 00 90 tab, 2 Refill(s), Pharmacy: [id number], 149.86, cm, 12/24/20 13:59:00 CDT, Height, 93.182, kg, 12/24/20 13:59:00 CDT, Weight donepezil 2020-0 Yes = 1 tab, Jose Francisco zhang 10 mg oral 3-26 PO, Daily, l tablet 19:08: # 90 tab, Ajay n 00 1 Refill(s), Pharmacy: [id number], 149.86, cm, 12/24/20 13:59:00 CDT, Height, 93.182, kg, 12/24/20 13:59:00 CDT, Weight primidone 2020-0 Yes 50 mg = 1 Mem oria 50 mg oral 3-26 tab, PO, l tablet 19:08: Bedtime, # Jessie nn 00 90 tab, 2 Refill(s), Pharmacy: [id number], 149.86, cm, 12/24/20 13:59:00 CDT, Height, 93.182, kg, 12/24/20 13:59:00 CDT, Weight donepezil 2020-0 Yes = 1 tab, Jose Francisco zhang 10 mg oral 3-26 PO, Daily, l tablet 19:08: # 90 tab, Ajay n 00 1 Refill(s), Pharmacy: [facility] #[id number], 149.86, cm, 12/24/20 13:59:00 CDT, Height, 93.182, kg, 12/24/20 13:59:00 CDT, Weight primidone 202-0 Yes 50 mg = 1 Mem oria 50 mg oral 3-26 tab, PO, l tablet 19:08: Bedtime, # Jessie nn 00 90 tab, 2 Refill(s), Pharmacy: [id number], 149.86, cm, 12/24/20 13:59:00 CDT, Height, 93.182, kg, 12/24/20 13:59:00 CDT, Weight donepezil 2020-0 Yes = 1 tab, Jose Francisco zhang 10 mg oral 3-26 PO, Daily, l tablet 19:08: # 90 tab, Ajay n 00 1 Refill(s), Pharmacy: [id number], 149.86, cm, 12/24/20 13:59:00 CDT, Height, 93.182, kg, 12/24/20 13:59:00 CDT, Weight primidone 2020-0 Yes 50 mg = 1 Mem oria 50 mg oral 3-26 tab, PO, l tablet 19:08: Bedtime, # Jessie nn 00 90 tab, 2 Refill(s), Pharmacy: [id number], 149.86, cm, 12/24/20 13:59:00 CDT, Height, 93.182, kg, 12/24/20 13:59:00 CDT, Weight donepezil 2020-0 Yes = 1 tab, Jose Francisco zhang 10 mg oral 3-26 PO, Daily, l tablet 19:08: # 90 tab, Ajay n 00 1 Refill(s), Pharmacy: [facility] kevin #[id number], 149.86, cm, 12/24/20 13:59:00 CDT, Height, 93.182, kg, 12/24/20 13:59:00 CDT, Weight primidone 2020-0 Yes 50 mg = 1 Mem oria 50 mg oral 3-26 tab, PO, l tablet 19:08: Bedtime, # Jessie nn 00 90 tab, 2 Refill(s), Pharmacy: [facility] cy #[id number], 149.86, cm, 12/24/20 13:59:00 CDT, Height, 93.182, kg, 12/24/20 13:59:00 CDT, Weight donepezil 2020-0 Yes = 1 tab, Jose Francisco zhang 10 mg oral 3-26 PO, Daily, l tablet 19:08: # 90 tab, Ajay n 00 1 Refill(s), Pharmacy: [facility] kevin #[id number], 149.86, cm, 12/24/20 13:59:00 CDT, Height, 93.182, kg, 12/24/20 13:59:00 CDT, Weight primidone 2021-0 Yes 50 mg = 1 Mem oria 50 mg oral 3-26 tab, PO, l tablet 19:08: Bedtime, # Jessie nn 00 90 tab, 2 Refill(s), Pharmacy: [facility] kevin #[id number], 149.86, cm, 12/24/20 13:59:00 CDT, Height, 93.182, kg, 12/24/20 13:59:00 CDT, Weight donepezil 1-0 Yes = 1 tab, Jose Francisco zhang 10 mg oral 3-26 PO, Daily, l tablet 19:08: # 90 tab, Ajay n 00 1 Refill(s), Pharmacy: [facility]vin #[id number], 149.86, cm, 12/24/20 13:59:00 CDT, Height, 93.182, kg, 12/24/20 13:59:00 CDT, Weight primidone 1-0 Yes 50 mg = 1 Mem oria 50 mg oral 3-26 tab, PO, l tablet 19:08: Bedtime, # Jessie nn 00 90 tab, 2 Refill(s), Pharmacy: [facility] kevin #[id number], 149.86, cm, 12/24/20 13:59:00 CDT, Height, 93.182, kg, 12/24/20 13:59:00 CDT, Weight donepezil 2021-0 Yes = 1 tab, Jose Francisco zhang 10 mg oral 3-26 PO, Daily, l tablet 19:08: # 90 tab, Ajay n 00 1 Refill(s), Pharmacy: [facility]vin #[id number], 149.86, cm, 12/24/20 13:59:00 CDT, Height, 93.182, kg, 12/24/20 13:59:00 CDT, Weight primidone 2021-0 Yes 50 mg = 1 Mem oria 50 mg oral 3-26 tab, PO, l tablet 19:08: Bedtime, # Jessie nn 00 90 tab, 2 Refill(s), Pharmacy: [facility] kevin #[id number], 149.86, cm, 12/24/20 13:59:00 CDT, Height, 93.182, kg, 12/24/20 13:59:00 CDT, Weight donepezil 2021-0 Yes = 1 tab, Jose Francisco zhang 10 mg oral 3-26 PO, Daily, l tablet 19:08: # 90 tab, Ajay n 00 1 Refill(s), Pharmacy: [facility] cy #[id number], 149.86, cm, 12/24/20 13:59:00 CDT, Height, 93.182, kg, 12/24/20 13:59:00 CDT, Weight primidone 2021-0 Yes 50 mg = 1 Mem oria 50 mg oral 3-26 tab, PO, l tablet 19:08: Bedtime, # Jessie nn 00 90 tab, 2 Refill(s), Pharmacy: [facility] kevin #[id number], 149.86, cm, 12/24/20 13:59:00 CDT, Height, 93.182, kg, 12/24/20 13:59:00 CDT, Weight donepezil 2020-0 Yes = 1 tab, Jose Francisco zhang 10 mg oral 3-26 PO, Daily, l tablet 19:08: # 90 tab, Ajay n 00 1 Refill(s), Pharmacy: [facility]vin #[id number], 149.86, cm, 12/24/20 13:59:00 CDT, Height, 93.182, kg, 12/24/20 13:59:00 CDT, Weight primidone 2021-0 Yes 50 mg = 1 Mem oria 50 mg oral 3-26 tab, PO, l tablet 19:08: Bedtime, # Jessie nn 00 90 tab, 2 Refill(s), Pharmacy: [facility] #[id number], 149.86, cm, 12/24/20 13:59:00 CDT, Height, 93.182, kg, 12/24/20 13:59:00 CDT, Weight donepezil 2021-0 Yes = 1 tab, Jose Francisco zhang 10 mg oral 3-26 PO, Daily, l tablet 19:08: # 90 tab, Ajay n 00 1 Refill(s), Pharmacy: [facility] #[id number], 149.86, cm, 12/24/20 13:59:00 CDT, Height, 93.182, kg, 12/24/20 13:59:00 CDT, Weight primidone 2021-0 Yes 50 mg = 1 Mem oria 50 mg oral 3-26 tab, PO, l tablet 19:08: Bedtime, # Jessie nn 00 90 tab, 2 Refill(s), Pharmacy: [facility] #[id number], 149.86, cm, 12/24/20 13:59:00 CDT, Height, 93.182, kg, 12/24/20 13:59:00 CDT, Weight donepezil 2020-0 Yes = 1 tab, Jose Francisco zhang 10 mg oral 3-26 PO, Daily, l tablet 19:08: # 90 tab, Ajay n 00 1 Refill(s), Pharmacy: [facility] #[id number], 149.86, cm, 12/24/20 13:59:00 CDT, Height, 93.182, kg, 12/24/20 13:59:00 CDT, Weight primidone 2020-0 Yes 50 mg = 1 Mem oria 50 mg oral 3-26 tab, PO, l tablet 19:08: Bedtime, # Jessie nn 00 90 tab, 2 Refill(s), Pharmacy: [facility] #[id number], 149.86, cm, 12/24/20 13:59:00 CDT, Height, 93.182, kg, 12/24/20 13:59:00 CDT, Weight donepezil 2020-0 Yes = 1 tab, Jose Francisco zhang 10 mg oral 3-26 PO, Daily, l tablet 19:08: # 90 tab, Ajay n 00 1 Refill(s), Pharmacy: [facility] #[id number], 149.86, cm, 12/24/20 13:59:00 CDT, Height, 93.182, kg, 12/24/20 13:59:00 CDT, Weight primidone 2021-0 Yes 50 mg = 1 Mem oria 50 mg oral 3-26 tab, PO, l tablet 19:08: Bedtime, # Jessie nn 00 90 tab, 2 Refill(s), Pharmacy: [facility] #[id number], 149.86, cm, 12/24/20 13:59:00 CDT, Height, 93.182, kg, 12/24/20 13:59:00 CDT, Weight donepezil 2021-0 Yes = 1 tab, Jose Francisco zhang 10 mg oral 3-26 PO, Daily, l tablet 19:08: # 90 tab, Ajay n 00 1 Refill(s), Pharmacy: [facility] #[id number], 149.86, cm, 12/24/20 13:59:00 CDT, Height, 93.182, kg, 12/24/20 13:59:00 CDT, Weight primidone 2021-0 Yes 50 mg = 1 Mem oria 50 mg oral 3-26 tab, PO, l tablet 19:08: Bedtime, # Jessie nn 00 90 tab, 2 Refill(s), Pharmacy: [facility] #[id number], 149.86, cm, 12/24/20 13:59:00 CDT, Height, 93.182, kg, 12/24/20 13:59:00 CDT, Weight donepezil 2020-0 Yes = 1 tab, Jose Francisco zhang 10 mg oral 3-26 PO, Daily, l tablet 19:08: # 90 tab, Ajay n 00 1 Refill(s), Pharmacy: [facility] #[id number], 149.86, cm, 12/24/20 13:59:00 CDT, Height, 93.182, kg, 12/24/20 13:59:00 CDT, Weight primidone 1-0 Yes 50 mg = 1 Mem oria 50 mg oral 3-26 tab, PO, l tablet 19:08: Bedtime, # Jessie nn 00 90 tab, 2 Refill(s), Pharmacy: [facility] #[id number], 149.86, cm, 12/24/20 13:59:00 CDT, Height, 93.182, kg, 12/24/20 13:59:00 CDT, Weight donepezil 2021-0 Yes = 1 tab, Jose Francisco zhang 10 mg oral 3-26 PO, Daily, l tablet 19:08: # 90 tab, Ajay n 00 1 Refill(s), Pharmacy: [facility] #[id number], 149.86, cm, 12/24/20 13:59:00 CDT, Height, 93.182, kg, 12/24/20 13:59:00 CDT, Weight primidone 2020-0 Yes 50 mg = 1 Mem oria 50 mg oral 3-26 tab, PO, l tablet 19:08: Bedtime, # Jessie nn 00 90 tab, 2 Refill(s), Pharmacy: [facility] #[id number], 149.86, cm, 12/24/20 13:59:00 CDT, Height, 93.182, kg, 12/24/20 13:59:00 CDT, Weight Lidocaine Lidocaine 2020-0 No 10mg Com 12-09 [facility]: - [facility] 00 [facility] Celestone Celestone 2020-0 No 6mg Com mon Soluspan Soluspan 3-11 [facility] (Betamethas (Betamethas 00:00: - CHI one) one) 00 [facility] Lidocaine Lidocaine 2020-0 No 10mg Com 12-09 [facility] 00:[facility]: - [facility] 00 [facility] Celestone Celestone 2020-0 No 6mg Com mon Soluspan Soluspan 3-11 [facility] (Betamethas (Betamethas 00:00: - CHI one) one) 00 [facility] Lidocaine Lidocaine 2020-0 No 10mg Com 12-09 [facility] 00:00: - [facility] 00 [facility] Celestone Celestone 2020-0 No 6mg Com mon Soluspan Soluspan 3-11 [facility] (Betamethas (Betamethas 00:00: - CHI one) one) 00 [facility] Lidocaine Lidocaine 1-0 No 10mg Com 12-09 [facility] 00:00: - [facility] 00 [facility] Celestone Celestone 2020-0 No 6mg Com mon Soluspan Soluspan 3-11 [facility] (Betamethas (Betamethas 00:00: - CHI one) one) 00 [facility] Lidocaine Lidocaine 1-0 No 10mg Com 12-09 [facility] 00:00: - [facility] 00 [facility] Celestone Celestone 2020-0 No 6mg Com mon Soluspan Soluspan 3-11 [facility] (Betamethas (Betamethas 00:00: - CHI one) one) 00 [facility] Lidocaine Lidocaine 1-0 No 10mg Com 12-09 [facility] 00:00: - [facility] 00 [facility] Celestone Celestone 1-0 No 6mg Com mon Soluspan Soluspan 3-11 [facility] (Betamethas (Betamethas 00:00: - CHI one) one) 00 [facility] Lidocaine Lidocaine 2020-0 No 10mg Com 12-09 [facility] 00:00: - [facility] 00 [facility] Celestone Celestone 2020-0 No 6mg Com mon Soluspan Soluspan 3-11 [facility] (Betamethas (Betamethas 00:00: - CHI one) one) 00 [facility] Lidocaine Lidocaine 2020-0 No 10mg Com 12-09 [facility] 00:00: - [facility] 00 [facility] Celestone Celestone 2020-0 No 6mg Com mon Soluspan Soluspan 3-11 [facility] (Betamethas (Betamethas 00:00: - [facility]I one) one) 00 [facility] Lovastatin 2019-10 No 20 mg, 1 Mem oria 2-07 tab, l 03:00: Route: PO, Drug form: TAB, Bedtime, Dosing Weight 104.545, kg, Start date: 09/05/20 21:00:00 RIPPER OPERATOR, Duration: 30 day, Stop date: 10/04/20 21:00:00 RIPPER OPERATOR Primidone 2019-10 No Notes: Memori a 2-07 (Same as: l 03:00: Mysoline) Lipitor 2019-10 No Notes: Memoria 2-07 (Same As: l 03:00: Lipitor) Lovastatin 2019-10 No 20 mg, 1 Mem oria 2-07 tab, l 03:00: Route: PO, [place] 00 Drug form: TAB, Bedtime, Dosing Weight 104.545, kg, Start date: 09/05/20 21:00:00 RIPPER OPERATOR, Duration: 30 day, Stop date: 10/04/20 21:00:00 RIPPER OPERATOR Primidone 2019-10 No Notes: Memori a 2-07 (Same as: l 03:00: Mysoline) Lipitor 2019-10 No Notes: Memoria 2-07 (Same As: l 03:00: Lipitor) Lovastatin 2019-10 No 20 mg, 1 Mem oria 2-07 tab, l 03:00: Route: PO, [place] 00 Drug form: TAB, Bedtime, Dosing Weight 104.545, kg, Start date: 09/05/20 21:00:00 RIPPER OPERATOR, Duration: 30 day, Stop date: 10/04/20 21:00:00 RIPPER OPERATOR Primidone 2019-10 No Notes: Memori a 2-07 (Same as: l 03:00: Mysoline) Lipitor 2019-10 No Notes: Memoria 2-07 (Same As: l 03:00: Lipitor) Lovastatin 2019-10 No 20 mg, 1 Mem oria 2-07 tab, l 03:00: Route: PO, Raul 00 Drug form: TAB, Bedtime, Dosing Weight 104.545, kg, Start date: 09/05/20 21:00:00 RIPPER OPERATOR, Duration: 30 day, Stop date: 10/04/20 21:00:00 RIPPER OPERATOR Primidone 2019-10 No Notes: Memori a 2-07 (Same as: l 03:00: Mysoline) Lipitor 2019-10 No Notes: Memoria 2-07 (Same As: l 03:00: Lipitor) Lovastatin 2019-10 No 20 mg, 1 Mem oria 2-07 tab, l 03:00: Route: PO, Raul 00 Drug form: TAB, Bedtime, Dosing Weight 104.545, kg, Start date: 09/05/20 21:00:00 RIPPER OPERATOR, Duration: 30 day, Stop date: 10/04/20 21:00:00 RIPPER OPERATOR Primidone 2019-10 No Notes: Memori a 2-07 (Same as: l 03:00: Mysoline) Lipitor 2019-10 No Notes: Memoria 2-07 (Same As: l 03:00: Lipitor) Lovastatin 2019-10 No 20 mg, 1 Mem oria 2-07 tab, l 03:00: Route: PO, Raul 00 Drug form: TAB, Bedtime, Dosing Weight 104.545, kg, Start date: 09/05/20 21:00:00 RIPPER OPERATOR, Duration: 30 day, Stop date: 10/04/20 21:00:00 RIPPER OPERATOR Primidone 2019-10 No Notes: Memori a 2-07 (Same as: l 03:00: Mysoline) Lipitor 2019-10 No Notes: Memoria 2-07 (Same As: l 03:00: Lipitor) Lovastatin 2019-10 No 20 mg, 1 Mem oria 2-07 tab, l 03:00: Route: PO, Raul 00 Drug form: TAB, Bedtime, Dosing Weight 104.545, kg, Start date: 09/05/20 21:00:00 RIPPER OPERATOR, Duration: 30 day, Stop date: 10/04/20 21:00:00 RIPPER OPERATOR Primidone 2019-10 No Notes: Memori a 2-07 (Same as: l 03:00: Mysoline) Lipitor 2019-10 No Notes: Memoria 2-07 (Same As: l 03:00: Lipitor) Lovastatin 2019-10 No 20 mg, 1 Mem oria 2-07 tab, l 03:00: Route: PO, [place] 00 Drug form: TAB, Bedtime, Dosing Weight 104.545, kg, Start date: 09/05/20 21:00:00 RIPPER OPERATOR, Duration: 30 day, Stop date: 10/04/20 21:00:00 RIPPER OPERATOR Primidone 2019-10 No Notes: Memori a 2-07 (Same as: l 03:00: Mysoline) Lipitor 2019-10 No Notes: Memoria 2-07 (Same As: l 03:00: Lipitor) Lovastatin 2019-10 No 20 mg, 1 Mem oria 2-07 tab, l 03:00: Route: PO, [place] 00 Drug form: TAB, Bedtime, Dosing Weight 104.545, kg, Start date: 09/05/20 21:00:00 RIPPER OPERATOR, Duration: 30 day, Stop date: 10/04/20 21:00:00 RIPPER OPERATOR Primidone 2019-10 No Notes: Memori a 2-07 (Same as: l 03:00: Mysoline) Lovastatin 2019-10 No 20 mg, 1 Mem oria 2-07 tab, l 03:00: Route: PO, [place] 00 Drug form: TAB, Bedtime, Dosing Weight 104.545, kg, Start date: 09/05/20 21:00:00 RIPPER OPERATOR, Duration: 30 day, Stop date: 10/04/20 21:00:00 RIPPER OPERATOR Lovastatin 2019- No 20 mg, 1 Mem oria 2-07 tab, l 03:00: Route: PO, Drug form: TAB, Bedtime, Dosing Weight 104.545, kg, Start date: 09/05/20 21:00:00 RIPPER OPERATOR, Duration: 30 day, Stop date: 10/04/20 21:00:00 RIPPER OPERATOR Primidone 2019-10 No Notes: Memori a 2-07 [...] Weight 104.545, kg, Start date: 09/05/20 21:00:00 RIPPER OPERATOR, Duration: 30 day, Stop date: 10/04/20 21:00:00 RIPPER OPERATOR Primidone 2019-10 No Notes: Memori a 2-07 (Same as: l 03:00: Mysoline) Lipitor 2019-10 No Notes: Memoria 2-07 (Same As: l 03:00: Lipitor) Lovastatin 2019-10 No 20 mg, 1 Mem oria 2-07 tab, l 03:00: Route: PO, Drug form: TAB, Bedtime, Dosing Weight 104.545, kg, Start date: 09/05/20 21:00:00 RIPPER OPERATOR, Duration: 30 day, Stop date: 10/04/20 21:00:00 RIPPER OPERATOR Primidone 2019-10 No Notes: Memori a 2-07 (Same as: l 03:00: Mysoline) Lipitor 2019-10 No Notes: Memoria 2-07 (Same As: l 03:00: Lipitor) Lovastatin 2019-10 No 20 mg, 1 Mem oria 2-07 tab, l 03:00: Route: PO, [place] 00 Drug form: TAB, Bedtime, Dosing Weight 104.545, kg, Start date: 09/05/20 21:00:00 RIPPER OPERATOR, Duration: 30 day, Stop date: 10/04/20 21:00:00 RIPPER OPERATOR Primidone 2019-10 No Notes: Memori a 2-07 (Same as: l 03:00: Mysoline) Lipitor 2019-10 No Notes: Memoria 2-07 (Same As: l 03:00: Lipitor) Lovastatin 2019-10 No 20 mg, 1 Mem oria 2-07 tab, l 03:00: Route: PO, Drug form: TAB, Bedtime, Dosing Weight 104.545, kg, Start date: 09/05/20 21:00:00 RIPPER OPERATOR, Duration: 30 day, Stop date: 10/04/20 21:00:00 RIPPER OPERATOR Primidone 2019-10 No Notes: Memori a 2-07 (Same as: l 03:00: Mysoline) Lipitor 2019-10 No Notes: Memoria 2-07 (Same As: l 03:00: Lipitor) Lovastatin 2019-10 No 20 mg, 1 Mem oria 2-07 tab, l 03:00: Route: PO, Drug form: TAB, Bedtime, Dosing Weight 104.545, kg, Start date: 09/05/20 21:00:00 RIPPER OPERATOR, Duration: 30 day, Stop date: 10/04/20 21:00:00 RIPPER OPERATOR Primidone 2019-10 No Notes: Memori a 2-07 (Same as: l 03:00: Mysoline) Lipitor 2019-10 No Notes: Memoria 2-07 (Same As: l 03:00: Lipitor) Acetaminoph 2019-10 Yes 500 mg = 1 Memoria en 500 MG 2-06 tab, PO, l Oral Tablet 18:51: Q6Hnow, 0 H [place] 00 Refill(s) Acetaminoph 2020- Yes 500 mg = 1 Memoria en 500 MG 2-06 tab, PO, l Oral Tablet 18:51: Q6Hnow, 0 H ermann 00 Refill(s) Acetaminoph 2020- Yes 500 mg = 1 Memoria en [...] Q6Hnow, 0 H ermann 00 Refill(s) Acetaminoph 2020- Yes 500 mg = 1 Memoria en 500 MG 2-06 tab, PO, l Oral Tablet 18:51: Q6Hnow, 0 H ermann 00 Refill(s) Acetaminoph 2020- Yes 500 mg = 1 Memoria en [...] 104.545, kg, Daily, Start date: 09/05/20 9:00:00 RIPPER OPERATOR, Duration: 30 day, Stop date: 10/04/20 9:00:00 RIPPER OPERATOR gabapentin 2019-10 No Notes: Memor ia 300 [...] 104.545, kg, Daily, Start date: 09/05/20 9:00:00 RIPPER OPERATOR, Duration: 30 day, Stop date: 10/04/20 9:00:00 RIPPER OPERATOR gabapentin 2019-10 No Notes: Memor ia 300 MG Oral 2-06 (Same as: l Capsule 15:00: Neurontin) ropinirole 2019-10 No Notes: Memor ia 2-06 (Same as: l 15:00: Requip) Bupropion 2019-10 No Notes: Memori a 2-06 (Same as: l 15:00: Wellbutrin [place] 00 XL) "Do Not Crush" carvedilol 2019-10 No Notes: Memor ia 2-06 Give with l 15:00: food. (Same As: Coreg) donepezil 2019-10 No Notes: Memori a 2-06 (Same as: l 15:00: Aricept) Escitalopra 2020-1 No Notes: Jose Francisco zhang m 2-06 (Same as: l 15:00: Lexapro) Famotidine 2019-10 No Notes: Memor ia 20 MG Oral 2-06 (Same as: l Tablet 15:00: Pepcid) Anoro 2019-10 No 1 Memoria Ellipta 2-06 inhalation l 62.5 mcg-25 15:00: , Route: He rmann mcg 00 INHALATION inhalation , Drug powder Form: PWDR, Dosing Weight 104.545, kg, Daily, Start date: 09/05/20 9:00:00 RIPPER OPERATOR, Duration: 30 day, Stop date: 10/04/20 9:00:00 RIPPER OPERATOR gabapentin 2019-10 No Notes: Memor ia 300 [...] 104.545, kg, Daily, Start date: 09/05/20 9:00:00 RIPPER OPERATOR, Duration: 30 day, Stop date: 10/04/20 9:00:00 RIPPER OPERATOR gabapentin 2019-10 No Notes: Memor ia 300 MG Oral 2-06 (Same as: l Capsule 15:00: Neurontin) ropinirole 2019-10 No Notes: Memor ia 2-06 (Same as: l 15:00: Requip) Bupropion 2019-10 No Notes: Memori a 2-06 (Same as: l 15:00: Wellbutrin [place] 00 XL) "Do Not Crush" carvedilol 2019-10 [...] 104.545, kg, Daily, Start date: 09/05/20 9:00:00 RIPPER OPERATOR, Duration: 30 day, Stop date: 10/04/20 9:00:00 RIPPER OPERATOR gabapentin 2019-10 No Notes: Memor ia 300 MG Oral 2-06 (Same as: l Capsule 15:00: Neurontin) ropinirole 2019-10 No Notes: Memor ia 2-06 (Same as: l 15:00: Requip) Bupropion 2019-10 No Notes: Memori a 2-06 (Same as: l 15:00: Wellbutrin [place] 00 XL) "Do Not Crush" carvedilol 2019-10 [...] 104.545, kg, Daily, Start date: 09/05/20 9:00:00 RIPPER OPERATOR, Duration: 30 day, Stop date: 10/04/20 9:00:00 RIPPER OPERATOR gabapentin 2019-10 No Notes: Memor ia 300 [...] 104.545, kg, Daily, Start date: 09/05/20 9:00:00 RIPPER OPERATOR, Duration: 30 day, Stop date: 10/04/20 9:00:00 RIPPER OPERATOR gabapentin 2019-10 No Notes: Memor ia 300 [...] 104.545, kg, Daily, Start date: 09/05/20 9:00:00 RIPPER OPERATOR, Duration: 30 day, Stop date: 10/04/20 9:00:00 RIPPER OPERATOR gabapentin 2019-10 No Notes: Memor ia 300 [...] 104.545, kg, Daily, Start date: 09/05/20 9:00:00 RIPPER OPERATOR, Duration: 30 day, Stop date: 10/04/20 9:00:00 RIPPER OPERATOR gabapentin 2019-10 No Notes: Memor ia 300 MG Oral 2-06 (Same as: l Capsule 15:00: Neurontin) ropinirole 2019-10 No Notes: Memor ia 2-06 (Same as: l 15:00: Requip) Bupropion 2019-10 No Notes: Memori a 2-06 (Same as: l 15:00: Wellbutrin [place] 00 XL) "Do Not Crush" carvedilol 2019-10 [...] 104.545, kg, Daily, Start date: 09/05/20 9:00:00 RIPPER OPERATOR, Duration: 30 day, Stop date: 10/04/20 9:00:00 RIPPER OPERATOR gabapentin 2019-10 No Notes: Memor ia 300 [...] 104.545, kg, Daily, Start date: 09/05/20 9:00:00 RIPPER OPERATOR, Duration: 30 day, Stop date: 10/04/20 9:00:00 RIPPER OPERATOR gabapentin 2019-10 No Notes: Memor ia 300 [...] 104.545, kg, Daily, Start date: 09/05/20 9:00:00 RIPPER OPERATOR, Duration: 30 day, Stop date: 10/04/20 9:00:00 RIPPER OPERATOR gabapentin 2019-10 No Notes: Memor ia 300 MG Oral 2-06 (Same as: l Capsule 15:00: Neurontin) Herm ropinirole 2019-10 No Notes: Memor ia 2-06 [...] 104.545, kg, Daily, Start date: 09/05/20 9:00:00 RIPPER OPERATOR, Duration: 30 day, Stop date: 10/04/20 9:00:00 RIPPER OPERATOR gabapentin 2019-10 No Notes: Memor ia 300 MG Oral 2-06 (Same as: l Capsule 15:00: Neurontin) ropinirole 2019-10 No Notes: Memor ia 2-06 (Same as: l 15:00: Requip) Bupropion 2019-10 No Notes: Memori a 2-06 (Same as: l 15:00: Wellbutrin [place] 00 XL) "Do Not Crush" carvedilol 2019-10 No Notes: Memor ia 2-06 Give with l 15:00: food. [place] 00 (Same As: Coreg) donepezil 2019-10 No [...] 104.545, kg, Daily, Start date: 09/05/20 9:00:00 RIPPER OPERATOR, Duration: 30 day, Stop date: 10/04/20 9:00:00 RIPPER OPERATOR gabapentin 2019-10 No Notes: Memor ia 300 [...] 104.545, kg, Daily, Start date: 09/05/20 9:00:00 RIPPER OPERATOR, Duration: 30 day, Stop date: 10/04/20 9:00:00 RIPPER OPERATOR gabapentin 2019-10 No Notes: Memor ia 300 [...] 104.545, kg, Daily, Start date: 09/05/20 9:00:00 RIPPER OPERATOR, Duration: 30 day, Stop date: 10/04/20 9:00:00 RIPPER OPERATOR gabapentin 2019-10 No Notes: Memor ia 300 MG Oral 2-06 (Same as: l Capsule 15:00: Neurontin) ropinirole 2019-10 No Notes: Memor ia 2-06 (Same as: l 15:00: Requip) Streptococc 2019-10 No Notes: Jose Francisco zhang us 2-06 Shake well l pneumoniae 14:12: prior to Her ivory serotype 1 45 use (Same capsular as: antigen Prevnar diphtheria 13) [id number] protein conjugate vaccine / Streptococc us pneumoniae serotype 14 capsular antigen diphtheria [id number] protein conjugate vaccine / Streptococc us pneumoniae serotype 18C capsular antigen d Streptococc 2019-10 No Notes: Jose Francisco zhang us 2-06 Shake well l pneumoniae 14:12: prior to Her ivory serotype 1 45 use (Same capsular as: antigen Prevnar diphtheria 13) [id number] protein conjugate vaccine / Streptococc us pneumoniae serotype 14 capsular antigen diphtheria [id number] protein conjugate vaccine / Streptococc us pneumoniae serotype 18C capsular antigen d Streptococc 2020- No Notes: Jose Francisco zhang 2-06 Shake well l pneumoniae 14:12: prior to Her ivory serotype 1 45 use (Same capsular as: antigen Prevnar diphtheria 13) [id number] protein conjugate vaccine / Streptococc us pneumoniae serotype 14 capsular antigen diphtheria [id number] protein conjugate vaccine / Streptococc us pneumoniae serotype 18C capsular antigen d Streptococc 2020- No Notes: Jose Francisco zhang 2-06 Shake well l pneumoniae 14:12: prior to Her ivory serotype 1 45 use (Same capsular as: antigen Prevnar diphtheria 13) [id number] protein conjugate vaccine / Streptococc us pneumoniae serotype 14 capsular antigen diphtheria [id number] protein conjugate vaccine / Streptococc us pneumoniae serotype 18C capsular antigen d Streptococc 2020- No Notes: Jose Francisco zhang 2-06 Shake well l pneumoniae 14:12: prior to Her ivory serotype 1 45 use (Same capsular as: antigen Prevnar diphtheria 13) [id number] protein conjugate vaccine / Streptococc us pneumoniae serotype 14 capsular antigen diphtheria [id number] protein conjugate vaccine / Streptococc us pneumoniae serotype 18C capsular antigen d Streptococc 2020- No Notes: Jose Francisco zhang 2-06 Shake well l pneumoniae 14:12: prior to Her ivory serotype 1 45 use (Same capsular as: antigen Prevnar diphtheria 13) [id number] protein conjugate vaccine / Streptococc us pneumoniae serotype 14 capsular antigen diphtheria [id number] protein conjugate vaccine / Streptococc us pneumoniae serotype 18C capsular antigen d Streptococc 2020- No Notes: Jose Francisco zhang 2-06 Shake well l pneumoniae 14:12: prior to Her ivory serotype 1 45 use (Same capsular as: antigen Prevnar diphtheria 13) [id number] protein conjugate vaccine / Streptococc us pneumoniae serotype 14 capsular antigen diphtheria [id number] protein conjugate vaccine / Streptococc us pneumoniae serotype 18C capsular antigen d Streptococc 2020- No Notes: Jose Francisco zhang 2-06 Shake well l pneumoniae 14:12: prior to Her ivory serotype 1 45 use (Same capsular as: antigen Prevnar diphtheria 13) [id number] protein conjugate vaccine / Streptococc us pneumoniae serotype 14 capsular antigen diphtheria [id number] protein conjugate vaccine / Streptococc us pneumoniae serotype 18C capsular antigen d Streptococc 2020- No Notes: Jose Francisco zhang us 2-06 Shake well l pneumoniae 14:12: prior to Her ivory serotype 1 45 use (Same capsular as: antigen Prevnar diphtheria 13) [id number] protein conjugate vaccine / Streptococc us pneumoniae serotype 14 capsular antigen diphtheria [id number] protein conjugate vaccine / Streptococc us pneumoniae serotype 18C capsular antigen d Streptococc 2020- No Notes: Jose Francisco zhang 2-06 Shake well l pneumoniae 14:12: prior to Her ivory serotype 1 45 use (Same capsular as: antigen Prevnar diphtheria 13) [id number] protein conjugate vaccine / Streptococc us pneumoniae serotype 14 capsular antigen diphtheria [id number] protein conjugate vaccine / Streptococc us pneumoniae serotype 18C capsular antigen d Streptococc 2020- No Notes: Jose Francisco zhang 2-06 Shake well l pneumoniae 14:12: prior to Her ivory serotype 1 45 use (Same capsular as: antigen Prevnar diphtheria 13) [id number] protein conjugate vaccine / Streptococc us pneumoniae serotype 14 capsular antigen diphtheria [id number] protein conjugate vaccine / Streptococc us pneumoniae serotype 18C capsular antigen d Streptococc 2019- No Notes: Jose Francisco zhang 2-06 Shake well l pneumoniae 14:12: prior to Her ivory serotype 1 45 use (Same capsular as: antigen Prevnar diphtheria 13) [id number] protein conjugate vaccine / Streptococc us pneumoniae serotype 14 capsular antigen diphtheria [id number] protein conjugate vaccine / Streptococc us pneumoniae serotype 18C capsular antigen d Streptococc 2019- No Notes: Jose Francisco zhang 2-06 Shake well l pneumoniae 14:12: prior to Her ivory serotype 1 45 use (Same capsular as: antigen Prevnar diphtheria 13) [id number] protein conjugate vaccine / Streptococc us pneumoniae serotype 14 capsular antigen diphtheria [id number] protein conjugate vaccine / Streptococc us pneumoniae serotype 18C capsular antigen d Streptococc 2020- No Notes: Jose Francisco zhang 2-06 Shake well l pneumoniae 14:12: prior to Her ivory serotype 1 45 use (Same capsular as: antigen Prevnar diphtheria 13) [id number] protein conjugate vaccine / Streptococc us pneumoniae serotype 14 capsular antigen diphtheria [id number] protein conjugate vaccine / Streptococc us pneumoniae serotype 18C capsular antigen d Streptococc 2020- No Notes: Jose Francisco zhang 2-06 Shake well l pneumoniae 14:12: prior to Her ivory serotype 1 45 use (Same capsular as: antigen Prevnar diphtheria 13) [id number] protein conjugate vaccine / Streptococc us pneumoniae serotype 14 capsular antigen diphtheria [id number] protein conjugate vaccine / Streptococc us pneumoniae serotype 18C capsular antigen d Streptococc 2019-10 No Notes: Jose Francisco zhang us 2-06 Shake well l pneumoniae 14:12: prior to Her ivory serotype 1 45 use (Same capsular as: antigen Prevnar diphtheria 13) [id number] protein conjugate vaccine / Streptococc us pneumoniae serotype 14 capsular antigen diphtheria [id number] protein conjugate vaccine / Streptococc us pneumoniae serotype 18C capsular antigen d Thyroxine 2019-10 No Notes: Memori a 2-06 Take 1 l 14:00: hour [place] 00 before or 2 hours after meal; [...] a 2-06 Take 1 l 14:00: hour [place] 00 before or 2 hours after meal; [...] a 2-06 Take 1 l 14:00: hour [place] 00 before or 2 hours after meal; [...] a 2-06 Take 1 l 14:00: hour [place] 00 before or 2 hours after meal; Enteral feeds may interefere with the absorption of this medication . (Same as:Levothr oid) Thyroxine 2019-10 No Notes: Memori a 2-06 Take 1 l 14:00: hour [place] 00 before or 2 hours after meal; Enteral feeds may interefere with the absorption of this medication . (Same as:Levothr oid) Thyroxine 2019-10 No Notes: Memori a 2-06 Take 1 l 14:00: hour [place] 00 before or 2 hours after meal; Enteral feeds may interefere with the absorption of this medication . (Same as:Levothr oid) Thyroxine 2019-10 No Notes: Memori a 2-06 Take 1 l 14:00: hour [place] 00 before or 2 hours after meal; [...] a 2-06 Take 1 l 14:00: hour [place] 00 before or 2 hours after meal; [...] kg, ONCALL, STAT, Start date: 09/05/20 6:39:00 RIPPER OPERATOR, Duration: 1 doses or times, Dose = 2.2ml/kg, Max dose = 100ml -- "To be infused by Radiology Staff ONLY" Iohexol 2020-1 No 100 mL, Memoria 2-06 Route: l 12:39: IVP, Drug [place] 00 Form: SOLN, Dosing Weight 104.545, kg, ONCALL, STAT, Start date: 09/05/20 6:39:00 RIPPER OPERATOR, Duration: 1 doses or times, Dose = 2.2ml/kg, Max dose = 100ml -- "To be infused by Radiology Staff ONLY" Iohexol 2020-1 No 100 mL, Memoria 2-06 Route: l 12:39: IVP, Drug [place] 00 Form: SOLN, Dosing Weight 104.545, kg, ONCALL, STAT, Start date: 09/05/20 6:39:00 RIPPER OPERATOR, Duration: 1 doses or times, Dose = 2.2ml/kg, Max dose = 100ml -- "To be infused by Radiology Staff ONLY" Iohexol 2020-1 No 100 mL, [facility] 2-06 Route: l 12:39: IVP, Drug [place] 00 Form: SOLN, Dosing Weight 104.545, kg, ONCALL, STAT, Start date: 09/05/20 6:39:00 RIPPER OPERATOR, Duration: 1 doses or times, Dose = 2.2ml/kg, Max dose = 100ml -- "To be infused by Radiology Staff ONLY" Iohexol 2020-1 No 100 mL, Memoria 2-06 Route: l 12:39: IVP, Drug Raul 00 Form: SOLN, Dosing Weight 104.545, kg, ONCALL, STAT, Start date: 09/05/20 6:39:00 RIPPER OPERATOR, Duration: 1 doses or times, Dose = 2.2ml/kg, Max dose = 100ml -- "To be infused by Radiology Staff ONLY" Iohexol 2020-1 No 100 mL, Memoria 2-06 Route: l 12:39: IVP, Drug [place] 00 Form: SOLN, Dosing Weight 104.545, kg, ONCALL, STAT, Start date: 09/05/20 6:39:00 RIPPER OPERATOR, Duration: 1 doses or times, Dose = 2.2ml/kg, Max dose = 100ml -- "To be infused by Radiology Staff ONLY" Iohexol 2020-1 No 100 mL, Memoria 2-06 Route: l 12:39: IVP, Drug Raul 00 Form: SOLN, Dosing Weight 104.545, kg, ONCALL, STAT, Start date: 09/05/20 6:39:00 RIPPER OPERATOR, Duration: 1 doses or times, Dose = 2.2ml/kg, Max dose = 100ml -- "To be infused by Radiology Staff ONLY" Iohexol 2020-1 No 100 mL, Memoria 2-06 Route: l 12:39: IVP, Drug [place] 00 Form: SOLN, Dosing Weight 104.545, kg, ONCALL, STAT, Start date: 09/05/20 6:39:00 RIPPER OPERATOR, Duration: 1 doses or times, Dose = 2.2ml/kg, Max dose = 100ml -- "To be infused by Radiology Staff ONLY" Iohexol 2020-1 No 100 mL, Memoria 2-06 Route: l 12:39: IVP, Drug Raul 00 Form: SOLN, Dosing Weight 104.545, kg, ONCALL, STAT, Start date: 09/05/20 6:39:00 RIPPER OPERATOR, Duration: 1 doses or times, Dose = 2.2ml/kg, Max dose = 100ml -- "To be infused by Radiology Staff ONLY" Iohexol 2020-1 No 100 mL, Memoria 2-06 Route: l 12:39: IVP, Drug [place] 00 Form: SOLN, Dosing Weight 104.545, kg, ONCALL, STAT, Start date: 09/05/20 6:39:00 RIPPER OPERATOR, Duration: 1 doses or times, Dose = 2.2ml/kg, Max dose = 100ml -- "To be infused by Radiology Staff ONLY" Iohexol 2020-1 No 100 mL, Memoria 2-06 Route: l 12:39: IVP, Drug Raul 00 Form: SOLN, Dosing Weight 104.545, kg, ONCALL, STAT, Start date: 09/05/20 6:39:00 RIPPER OPERATOR, Duration: 1 doses or times, Dose = 2.2ml/kg, Max dose = 100ml -- "To be infused by Radiology Staff ONLY" Iohexol 2020-1 No 100 mL, Memoria 2-06 Route: l 12:39: IVP, Drug Raul 00 Form: SOLN, Dosing Weight 104.545, kg, ONCALL, STAT, Start date: 09/05/20 6:39:00 RIPPER OPERATOR, Duration: 1 doses or times, Dose = 2.2ml/kg, Max dose = 100ml -- "To be infused by Radiology Staff ONLY" Iohexol 2020-1 No 100 mL, Memoria 2-06 Route: l 12:39: IVP, Drug Raul 00 Form: SOLN, Dosing Weight 104.545, kg, ONCALL, STAT, Start date: 09/05/20 6:39:00 RIPPER OPERATOR, Duration: 1 doses or times, Dose = 2.2ml/kg, Max dose = 100ml -- "To be infused by Radiology Staff ONLY" Iohexol 2020-1 No 100 mL, Memoria 2- Route: l 12:39: IVP, Drug [place] 00 Form: SOLN, Dosing Weight 104.545, kg, ONCALL, STAT, Start date: 09/05/20 6:39:00 RIPPER OPERATOR, Duration: 1 doses or times, Dose = 2.2ml/kg, Max dose = 100ml -- "To be infused by Radiology Staff ONLY" Iohexol 2020-1 No 100 mL, Memoria 2- Route: l 12:39: IVP, Drug [place] 00 Form: SOLN, Dosing Weight 104.545, kg, ONCALL, STAT, Start date: 09/05/20 6:39:00 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 (Same as: Tylenol Extra Strength) Acetaminoph 2019-10 No Notes: Max Memoria en 2-06 acetaminop l 07:00: hen 4000 [place] 00 mg/day (4 gm/day). (Same as: Tylenol Extra Strength) Acetaminoph 2019-10 No Notes: Max Memoria en 2-06 acetaminop l 07:00: hen 4000 [place] 00 mg/day (4 gm/day). (Same as: Tylenol Extra Strength) Acetaminoph 2019-10 No Notes: Max Memoria en 2-06 acetaminop l 07:00: hen 4000 [place] 00 mg/day (4 gm/day). (Same as: Tylenol [...] en 2-06 acetaminop l 07:00: hen 4000 [place] 00 mg/day (4 gm/day). (Same as: Tylenol [...] en 2-06 acetaminop l 07:00: hen 4000 [place] 00 mg/day (4 gm/day). (Same as: Tylenol Extra Strength) Acetaminoph 2019-10 No Notes: Max Memoria en 2-06 acetaminop l 07:00: hen 4000 [place] 00 mg/day (4 gm/day). (Same as: Tylenol Extra Strength) Acetaminoph 2019-10 No Notes: Max Memoria en 2-06 acetaminop l 07:00: hen 4000 [place] 00 mg/day (4 gm/day). (Same as: Tylenol Extra Strength) Acetaminoph 2019-10 No Notes: Max Memoria en 2-06 acetaminop l 07:00: hen 4000 [place] 00 mg/day (4 gm/day). (Same as: Tylenol [...] en 2-06 acetaminop l 07:00: hen 4000 [place] 00 mg/day (4 gm/day). (Same as: Tylenol [...] l oral tablet 06:48: BID, # 180 [place] 00 tab, 1 Refill(s) amLODIPine 2019-10 Yes 10 mg = 1 Me moria 10 mg oral 2-06 tab, PO, l tablet 06:48: Daily, # [place] 00 90 tab, 0 Refill(s) escitalopra 2019-10 [...] tab, PO, l Tablet 06:48: Daily, # [place] 00 60 tab, 1 Refill(s) Trelegy 2019-10 [...] tab, PO, l Tablet 06:48: Daily, # [place] 00 60 tab, 1 Refill(s) Trelegy 2019-10 [...] l oral tablet 06:48: BID, # 180 [place] 00 tab, 1 Refill(s) amLODIPine 2019-10 Yes 10 mg = 1 Me moria 10 mg oral 2-06 tab, PO, l tablet 06:48: Daily, # [place] 00 90 tab, 0 Refill(s) escitalopra 2019-10 [...] l oral tablet 06:48: BID, # 180 [place] 00 tab, 1 Refill(s) amLODIPine 2019-10 Yes 10 mg = 1 Me moria 10 mg oral 2-06 tab, PO, l tablet 06:48: Daily, # [place] 00 90 tab, 0 Refill(s) escitalopra 2019-10 [...] tab, PO, l Tablet 06:48: Daily, # [place] 00 60 tab, 1 Refill(s) Trelegy 2019-10 [...] l oral tablet 06:48: BID, # 180 [place] 00 tab, 1 Refill(s) amLODIPine 2019-10 Yes 10 mg = 1 Me moria 10 mg oral 2-06 tab, PO, l tablet 06:48: Daily, # [place] 00 90 tab, 0 Refill(s) escitalopra 2019-10 [...] tab, PO, l tablet 06:48: Daily, # [place] 00 90 tab, 0 Refill(s) escitalopra 2019-10 [...] tab, PO, l tablet 06:48: Daily, # [place] 00 90 tab, 0 Refill(s) escitalopra 2019-10 [...] tab, PO, l Tablet 06:48: Daily, # [place] 00 60 tab, 1 Refill(s) Trelegy 2019-10 [...] l oral tablet 06:48: BID, # 180 [place] 00 tab, 1 Refill(s) amLODIPine 2019-10 Yes [...] tab, PO, l Tablet 06:48: Daily, # [place] 00 60 tab, 1 Refill(s) Trelegy 2019-10 [...] tab, PO, l Tablet 06:48: Daily, # [place] 00 60 tab, 1 Refill(s) Trelegy 2019-10 [...] l oral tablet 06:48: BID, # 180 [place] 00 tab, 1 Refill(s) amLODIPine 2019-10 Yes [...] l oral tablet 06:48: BID, # 180 [place] 00 tab, 1 Refill(s) amLODIPine 2019-10 Yes [...] tab, PO, l tablet 06:48: Daily, # [place] 00 90 tab, 0 Refill(s) Trelegy 2019-10 [...] tab, PO, l Tablet 06:48: Daily, # [place] 00 60 tab, 1 Refill(s) Trelegy 2019-10 [...] l oral tablet 06:48: BID, # 180 [place] 00 tab, 1 Refill(s) amLODIPine 2019-10 Yes [...] tab, PO, l Tablet 06:48: Daily, # [place] 00 60 tab, 1 Refill(s) Trelegy 2019-10 [...] l oral tablet 06:48: BID, # 180 [place] 00 tab, 1 Refill(s) amLODIPine 2019-10 Yes 10 mg = 1 Me moria 10 mg oral 2-06 tab, PO, l tablet 06:48: Daily, # [place] 00 90 tab, 0 Refill(s) escitalopra 2019-10 [...] tab, PO, l Tablet 06:48: Daily, # [place] 00 60 tab, 1 Refill(s) Trelegy 2019-10 [...] Blood Glucose Results, Start date: 09/05/20 0:47:00 RIPPER OPERATOR, Duration: 30 day, Stop date: 10/05/20 0:46:00 RIPPER OPERATOR, 0 Glucagon 2019-10 No 1 mg, Memoria 2 Route: IM, l 06:47: Drug form: Raul PDR/INJ, PRN, Dosing Weight 104.545, kg, PRN Blood Glucose Results, Start date: 09/05/20 0:47:00 RIPPER OPERATOR, Duration: 30 day, Stop date: 10/05/20 0:46:00 RIPPER OPERATOR, 0 sennosides, 2019-10 No Notes: Jose Francisco [...] Total Volume: 1,000, Start date: 09/05/20 0:47:00 RIPPER OPERATOR, Duration: 1 day, Stop date: 09/06/20 0:46:00 RIPPER OPERATOR, 1.97, m2, 0 Tums 2019-10 No Notes: [...] 0.65% 2-06 (Same as: l solution 06:47: Alexander, Deep Sea Nasal [place]). Tessalon 2019-10 No Notes: Memoria Perles 2-06 (Same As: l 06:47: Tessalon Perles) "Do Not Crush" Guaifenesin 2019-10 No Notes: Jose Francisco zhang 2-06 (Same as: l 06:47: Organidin 00 NR) Blistex 2019-10 No Notes: Memoria [...] Blood Glucose Results, Start date: 09/05/20 0:47:00 RIPPER OPERATOR, Duration: 30 day, Stop date: 10/05/20 0:46:00 RIPPER OPERATOR, 0 Glucagon 2019-10 No 1 mg, Memoria 11-06 Route: IM, l 06:47: Drug form: [place] 00 PDR/INJ, PRN, Dosing Weight 104.545, kg, PRN Blood Glucose Results, Start date: 09/05/20 0:47:00 RIPPER OPERATOR, Duration: 30 day, Stop date: 10/05/20 0:46:00 RIPPER OPERATOR, 0 sennosides, 2019-10 No Notes: Jose Francisco [...] Total Volume: 1,000, Start date: 09/05/20 0:47:00 RIPPER OPERATOR, Duration: 1 day, Stop date: 09/06/20 0:46:00 RIPPER OPERATOR, 1.97, m2, 0 Tums 2019-10 No Notes: [...] 0.65% 2- (Same as: l solution 06:47: Alexander, Raul 00 Deep Sea Nasal [place]). Tessalon 2019-10 No Notes: Memoria Perles 2- [...] Blood Glucose Results, Start date: 09/05/20 0:47:00 RIPPER OPERATOR, Duration: 30 day, Stop date: 10/05/20 0:46:00 RIPPER OPERATOR, 0 Glucagon 2019-10 No 1 mg, Memoria 2-06 Route: IM, l 06:47: Drug form: PDR/INJ, PRN, Dosing Weight 104.545, kg, PRN Blood Glucose Results, Start date: 09/05/20 0:47:00 RIPPER OPERATOR, Duration: 30 day, Stop date: 10/05/20 0:46:00 RIPPER OPERATOR, 0 sennosides, 2019-10 No Notes: Jose Francisco [...] Total Volume: 1,000, Start date: 09/05/20 0:47:00 RIPPER OPERATOR, Duration: 1 day, Stop date: 09/06/20 0:46:00 RIPPER OPERATOR, 1.97, m2, 0 Tums 2019-10 No Notes: [...] 0.65% 2-06 (Same as: l solution 06:47: Alexander, Raul 00 Deep Sea Nasal [place]). Tessalon 2019-10 No Notes: Memoria Perles 2-06 (Same As: l 06:47: Tessalon Perles) "Do Not Crush" Guaifenesin 2019-10 No Notes: Jose Francisco zhang 2-06 (Same as: l 06:47: Organidin [place] 00 NR) Blistex 2019-10 No Notes: Memoria topical 2-06 Same as: l ointment 06:47: Blistex Ajay n 00 Albuterol 2019-10 No Notes: SEE Me moria 0.83 MG/ML 2-06 RT l Inhalant 06:47: DOCUMENTAT Her ivory Solution 00 ION (Same as: Proventil) Dextrose 2019-10 No 12.5 gm, Memor ia 50% Syringe 2-06 25 mL, l (D50W) 06:47: Route: [place] 00 IVP, Drug Form: INJ, Dosing Weight 104.545, kg, PRN, PRN Blood Glucose Results, Start date: 09/05/20 0:47:00 RIPPER OPERATOR, Duration: 30 day, Stop date: 10/05/20 0:46:00 RIPPER OPERATOR, 0 Glucagon 2019-10 No 1 mg, Memoria 11-06 Route: IM, l 06:47: Drug form: [place] 00 PDR/INJ, PRN, Dosing Weight 104.545, kg, PRN Blood Glucose Results, Start date: 09/05/20 0:47:00 RIPPER OPERATOR, Duration: 30 day, Stop date: 10/05/20 0:46:00 RIPPER OPERATOR, 0 sennosides, 2019-10 No Notes: Jose Francisco [...] Total Volume: 1,000, Start date: 09/05/20 0:47:00 RIPPER OPERATOR, Duration: 1 day, Stop date: 09/06/20 0:46:00 RIPPER OPERATOR, 1.97, m2, 0 Tums 2019-10 No Notes: [...] 0.65% 2- (Same as: l solution 06:47: Alexander, [place] Deep Sea Nasal [place]). Tessalon 2019-10 No Notes: Memoria Perles 2- (Same As: l 06:47: Tessalon Raul 00 Perles) "Do Not Crush" Guaifenesin 2019-10 No Notes: Jose Francisco zhang 2-06 (Same as: l 06:47: Organidin [place] 00 NR) Blistex 2019-10 No Notes: Memoria [...] Blood Glucose Results, Start date: 09/05/20 0:47:00 RIPPER OPERATOR, Duration: 30 day, Stop date: 10/05/20 0:46:00 RIPPER OPERATOR, 0 Glucagon 2019-10 No 1 mg, Memoria 2-06 Route: IM, l 06:47: Drug form: [place] 00 PDR/INJ, PRN, Dosing Weight 104.545, kg, PRN Blood Glucose Results, Start date: 09/05/20 0:47:00 RIPPER OPERATOR, Duration: 30 day, Stop date: 10/05/20 0:46:00 RIPPER OPERATOR, 0 sennosides, 2019-10 No Notes: Jose Francisco [...] Total Volume: 1,000, Start date: 09/05/20 0:47:00 RIPPER OPERATOR, Duration: 1 day, Stop date: 09/06/20 0:46:00 RIPPER OPERATOR, 1.97, m2, 0 Tums 2019-10 No Notes: [...] 0.65% 2-06 (Same as: l solution 06:47: Alexander, Ra[place] 00 Deep Sea Nasal [place]). 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 date: 09/05/20 0:47:00 RIPPER OPERATOR, Duration: 30 day, Stop date: 10/05/20 0:46:00 RIPPER OPERATOR, 0 Glucagon 2019-10 No 1 mg, Memoria 11-06 Route: IM, l 06:47: Drug form: PDR/INJ, PRN, Dosing Weight 104.545, kg, PRN Blood Glucose Results, Start date: 09/05/20 0:47:00 RIPPER OPERATOR, Duration: 30 day, Stop date: 10/05/20 0:46:00 RIPPER OPERATOR, 0 sennosides, 2019-10 No Notes: Jose Francisco [...] Total Volume: 1,000, Start date: 09/05/20 0:47:00 RIPPER OPERATOR, Duration: 1 day, Stop date: 09/06/20 0:46:00 RIPPER OPERATOR, 1.97, m2, 0 Tums 2019-10 No Notes: [...] 0.65% 2- (Same as: l solution 06:47: Alexander, Ra[place] 00 Deep Sea Nasal [place]). 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 date: 09/05/20 0:47:00 RIPPER OPERATOR, Duration: 30 day, Stop date: 10/05/20 0:46:00 RIPPER OPERATOR, 0 Glucagon 2019-10 No 1 mg, Memoria 2-06 Route: IM, l 06:47: Drug form: [place] 00 PDR/INJ, PRN, Dosing Weight 104.545, kg, PRN Blood Glucose Results, Start date: 09/05/20 0:47:00 RIPPER OPERATOR, Duration: 30 day, Stop date: 10/05/20 0:46:00 RIPPER OPERATOR, 0 sennosides, 2019-10 No Notes: Jose Francisco [...] Total Volume: 1,000, Start date: 09/05/20 0:47:00 RIPPER OPERATOR, Duration: 1 day, Stop date: 09/06/20 0:46:00 RIPPER OPERATOR, 1.97, m2, 0 Tums 2019-10 No Notes: [...] 0.65% 2-06 (Same as: l solution 06:47: Alexander, Deep Sea Nasal [place]). Tessalon 2019-10 No Notes: Memoria Perles 2- [...] Blood Glucose Results, Start date: 09/05/20 0:47:00 RIPPER OPERATOR, Duration: 30 day, Stop date: 10/05/20 0:46:00 RIPPER OPERATOR, 0 Glucagon 2019-10 No 1 mg, Memoria 11-06 Route: IM, l 06:47: Drug form: [place] 00 PDR/INJ, PRN, Dosing Weight 104.545, kg, PRN Blood Glucose Results, Start date: 09/05/20 0:47:00 RIPPER OPERATOR, Duration: 30 day, Stop date: 10/05/20 0:46:00 RIPPER OPERATOR, 0 sennosides, 2019-10 No Notes: Jose Francisco zhang CORRECTION - (Same as: l 06:47: Senokot) POLYETHYLEN 2019-10 [...] Total Volume: 1,000, Start date: 09/05/20 0:47:00 RIPPER OPERATOR, Duration: 1 day, Stop date: 09/06/20 0:46:00 RIPPER OPERATOR, 1.97, m2, 0 Tums 2019-10 No Notes: [...] 0.65% 2- (Same as: l solution 06:47: Alexander, Raul 00 Deep Sea Nasal [place]). 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 date: 09/05/20 0:47:00 RIPPER OPERATOR, Duration: 30 day, Stop date: 10/05/20 0:46:00 RIPPER OPERATOR, 0 Glucagon 2019-10 No 1 mg, Memoria 2-06 Route: IM, l 06:47: Drug form: PDR/INJ, PRN, Dosing Weight 104.545, kg, PRN Blood Glucose Results, Start date: 09/05/20 0:47:00 RIPPER OPERATOR, Duration: 30 day, Stop date: 10/05/20 0:46:00 RIPPER OPERATOR, 0 sennosides, 2019-10 No Notes: Jose Francisco [...] Total Volume: 1,000, Start date: 09/05/20 0:47:00 RIPPER OPERATOR, Duration: 1 day, Stop date: 09/06/20 0:46:00 RIPPER OPERATOR, 1.97, m2, 0 Tums 2019-10 No Notes: [...] 0.65% 2-06 (Same as: l solution 06:47: Alexander, Deep Sea Nasal [place]). Tessalon 2019-10 No Notes: Memoria Perles - (Same As: l 06:47: Tessalon Perles) "Do Not Crush" Guaifenesin 2019-10 No Notes: Jose Francisco zhang 2-06 (Same as: l 06:47: Organidin [place] 00 NR) Blistex 2019-10 No Notes: Memoria [...] Blood Glucose Results, Start date: 09/05/20 0:47:00 RIPPER OPERATOR, Duration: 30 day, Stop date: 10/05/20 0:46:00 RIPPER OPERATOR, 0 Glucagon 2019-10 No 1 mg, Memoria 11-06 Route: IM, l 06:47: Drug form: PDR/INJ, PRN, Dosing Weight 104.545, kg, PRN Blood Glucose Results, Start date: 09/05/20 0:47:00 RIPPER OPERATOR, Duration: 30 day, Stop date: 10/05/20 0:46:00 RIPPER OPERATOR, 0 sennosides, 2019-10 No Notes: Jose Francisco zhang CORRECTION 2- (Same as: l 06:47: Senokot) POLYETHYLEN [...] Total Volume: 1,000, Start date: 09/05/20 0:47:00 RIPPER OPERATOR, Duration: 1 day, Stop date: 09/06/20 0:46:00 RIPPER OPERATOR, 1.97, m2, 0 Tums 2019-10 No Notes: [...] 0.65% 2- (Same as: l solution 06:47: Alexander, [place] 00 Deep Sea Nasal [place]). 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 date: 09/05/20 0:47:00 RIPPER OPERATOR, Duration: 30 day, Stop date: 10/05/20 0:46:00 RIPPER OPERATOR, 0 Glucagon 2019-10 No 1 mg, Memoria 2-06 Route: IM, l 06:47: Drug form: [place] 00 PDR/INJ, PRN, Dosing Weight 104.545, kg, PRN Blood Glucose Results, Start date: 09/05/20 0:47:00 RIPPER OPERATOR, Duration: 30 day, Stop date: 10/05/20 0:46:00 RIPPER OPERATOR, 0 sennosides, 2019-10 No Notes: Jose Francisco [...] Total Volume: 1,000, Start date: 09/05/20 0:47:00 RIPPER OPERATOR, Duration: 1 day, Stop date: 09/06/20 0:46:00 RIPPER OPERATOR, 1.97, m2, 0 Tums 2019-10 No Notes: [...] 0.65% 2- (Same as: l solution 06:47: Alexander, Raul 00 Deep Sea Nasal [place]). Tessalon 2019-10 No Notes: Memoria Perles - [...] Blood Glucose Results, Start date: 09/05/20 0:47:00 RIPPER OPERATOR, Duration: 30 day, Stop date: 10/05/20 0:46:00 RIPPER OPERATOR, 0 Glucagon 2019-10 No 1 mg, Memoria 11-06 Route: IM, l 06:47: Drug form: [place] 00 PDR/INJ, PRN, Dosing Weight 104.545, kg, PRN Blood Glucose Results, Start date: 09/05/20 0:47:00 RIPPER OPERATOR, Duration: 30 day, Stop date: 10/05/20 0:46:00 RIPPER OPERATOR, 0 sennosides, 2019-10 No Notes: Jose Francisco zhang CORRECTION 2- (Same as: l 06:47: Senokot) POLYETHYLEN [...] a 2-06 (Same as: l 06:47: Melatonin) [place] 00 LR IV 1,000 2019-10 No 1,000 mL, Keesha emoria mL 2-06 Rate: 100 l 06:47: ml/hr, Infuse over: 10 hr, Route: IV, Dosing Weight 104.545 kg, Total Volume: 1,000, Start date: 09/05/20 0:47:00 RIPPER OPERATOR, Duration: 1 day, Stop date: 09/06/20 0:46:00 RIPPER OPERATOR, 1.97, m2, 0 Tums 2019-10 No Notes: [...] 0.65% 2- (Same as: l solution 06:47: Alexander, [place] 00 Deep [place] Nasal [place]). 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 date: 09/05/20 0:47:00 RIPPER OPERATOR, Duration: 30 day, Stop date: 10/05/20 0:46:00 RIPPER OPERATOR, 0 Glucagon 2019-10 No 1 mg, Memoria 2-06 Route: IM, l 06:47: Drug form: Raul 00 PDR/INJ, PRN, Dosing Weight 104.545, kg, PRN Blood Glucose Results, Start date: 09/05/20 0:47:00 RIPPER OPERATOR, Duration: 30 day, Stop date: 10/05/20 0:46:00 RIPPER OPERATOR, 0 sennosides, 2019-10 No Notes: Jose Francisco [...] Total Volume: 1,000, Start date: 09/05/20 0:47:00 RIPPER OPERATOR, Duration: 1 day, Stop date: 09/06/20 0:46:00 RIPPER OPERATOR, 1.97, m2, 0 Tums 2019-10 No Notes: [...] 0.65% 2- (Same as: l solution 06:47: Alexander, Raul 00 Deep Sea Nasal [place]). 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 date: 09/05/20 0:47:00 RIPPER OPERATOR, Duration: 30 day, Stop date: 10/05/20 0:46:00 RIPPER OPERATOR, 0 Glucagon 2019-10 No 1 mg, Memoria 11-06 Route: IM, l 06:47: Drug form: PDR/INJ, PRN, Dosing Weight 104.545, kg, PRN Blood Glucose Results, Start date: 09/05/20 0:47:00 RIPPER OPERATOR, Duration: 30 day, Stop date: 10/05/20 0:46:00 RIPPER OPERATOR, 0 sennosides, 2019-10 No Notes: Jose Francisco [...] 2019-10 No 1,000 mL, M patria mL 2- Rate: 100 l 06:47: ml/hr, Infuse over: 10 hr, Route: IV, Dosing Weight 104.545 kg, Total Volume: 1,000, Start date: 09/05/20 0:47:00 RIPPER OPERATOR, Duration: 1 day, Stop date: 09/06/20 0:46:00 RIPPER OPERATOR, 1.97, m2, 0 Tums 2019-10 No Notes: [...] 0.65% 2- (Same as: l solution 06:47: Alexander, Deep [place] Nasal [place]). Tessalon 2019-10 No Notes: Memoria Perles 2-06 (Same As: l 06:47: Tessalon Perles) "Do Not Crush" Guaifenesin 2019-10 No Notes: Jose Francisco zhang 2-06 (Same as: l 06:47: Organidin NR) Dextrose 2019-10 No 12.5 gm, Memor ia 50% Syringe 2-06 25 mL, l (D50W) 06:47: Route: IVP, Drug Form: INJ, Dosing Weight 104.545, kg, PRN, PRN Blood Glucose Results, Start date: 09/05/20 0:47:00 RIPPER OPERATOR, Duration: 30 day, Stop date: 10/05/20 0:46:00 RIPPER OPERATOR, 0 Glucagon 2019-10 No 1 mg, Memoria 2-06 Route: IM, l 06:47: Drug form: PDR/INJ, PRN, Dosing Weight 104.545, kg, PRN Blood Glucose Results, Start date: 09/05/20 0:47:00 RIPPER OPERATOR, Duration: 30 day, Stop date: 10/05/20 0:46:00 RIPPER OPERATOR, 0 sennosides, 2019-10 No Notes: Jose Francisco [...] Total Volume: 1,000, Start date: 09/05/20 0:47:00 RIPPER OPERATOR, Duration: 1 day, Stop date: 09/06/20 0:46:00 RIPPER OPERATOR, 1.97, m2, 0 Tums 2019-10 No Notes: [...] 0.65% 2-06 (Same as: l solution 06:47: Alexander, [place] 00 Deep [place] Nasal [place]). 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 date: 09/05/20 0:47:00 RIPPER OPERATOR, Duration: 30 day, Stop date: 10/05/20 0:46:00 RIPPER OPERATOR, 0 Glucagon 2019-10 No 1 mg, Memoria 11-06 Route: IM, l 06:47: Drug form: [place] 00 PDR/INJ, PRN, Dosing Weight 104.545, kg, PRN Blood Glucose Results, Start date: 09/05/20 0:47:00 RIPPER OPERATOR, Duration: 30 day, Stop date: 10/05/20 0:46:00 RIPPER OPERATOR, 0 sennosides, 2019-10 No Notes: Jose Francisco [...] Total Volume: 1,000, Start date: 09/05/20 0:47:00 RIPPER OPERATOR, Duration: 1 day, Stop date: 09/06/20 0:46:00 RIPPER OPERATOR, 1.97, m2, 0 Tums 2019-10 No Notes: [...] 0.65% 2-06 (Same as: l solution 06:47: Alexander, Raul 00 Deep [place] Nasal [place]). Tessalon 2019-10 No Notes: Memoria Perles 2-06 [...] 00 ) Push over 5 minutes Hydralazine 2020- No Notes: Jose Francisco zhang 2-06 (Same as: l 06:45: Apresoline [place] 00 ) Push over 5 minutes Hydralazine 2020- No Notes: Jose Francisco zhang 2-06 (Same as: l 06:45: Apresoline [place] 00 ) Push over 5 minutes Hydralazine 2019- No Notes: Jose Francisco zhang 2-06 (Same as: l 06:45: Apresoline [place] 00 ) Push over 5 minutes Hydralazine 2019- No Notes: Jose Francisco zhang 2-06 (Same as: l 06:45: Apresoline [place] 00 ) Push over 5 minutes Hydralazine 2019- No Notes: Jose Francisco zhang 2-06 (Same as: l 06:45: Apresoline Raul 00 ) Push over 5 minutes Hydralazine 2019- No Notes: Jose Francisco zhang 2-06 (Same as: l 06:45: Apresoline Raul 00 ) Push over 5 minutes Hydralazine 2019- No Notes: Jose Francisco zhang 2-06 (Same as: l 06:45: Apresoline [place] 00 ) Push over 5 minutes Hydralazine 2019- No Notes: Jose Francisco zhang 2-06 (Same as: l 06:45: Apresoline [place] 00 ) Push over 5 minutes Hydralazine 2019- No Notes: Jose Francisco zhang 2-06 (Same as: l 06:45: Apresoline [place] 00 ) Push over 5 minutes Hydralazine 2019- No Notes: Jose Francisco zhang 2-06 (Same as: l 06:45: Apresoline [place] 00 ) Push over 5 minutes Hydralazine 2019- No Notes: Jose Francisco zhang 2-06 (Same as: l 06:45: Apresoline [place] 00 ) Push over 5 minutes Hydralazine 2019- No Notes: Jose Francisco zhang 2-06 (Same as: l 06:45: Apresoline [place] 00 ) Push over 5 minutes Hydralazine 2019- No Notes: Jose Francisco zhang 2-06 (Same as: l 06:45: Apresoline [place] 00 ) Push over 5 minutes Hydralazine 2019- No Notes: Jose Francisco zhang 2-06 (Same as: l 06:45: Apresoline [place] 00 ) Push over 5 minutes Hydralazine 2019-10 No Notes: Jose Francisco zhang 2-06 (Same as: l 06:45: Apresoline [place] 00 ) Push over 5 minutes Acetaminoph 2019-10 No 1 tab, Jose Francisco zhang en 325 MG / 2-06 Route: PO, l Hydrocodone 04:07: Drug Form: [place] Bitartrate 00 TAB, 5 MG Oral Dosing Tablet Weight 104.545, kg, ONCE, STAT, Start date: 09/04/20 22:07:00 RIPPER OPERATOR, Stop date: 09/04/20 22:07:00 RIPPER OPERATOR Acetaminoph 2019-10 No 1 tab, Jose Francisco zhang en 325 MG / 2-06 Route: PO, l Hydrocodone 04:07: Drug Form: [place] Bitartrate 00 TAB, 5 MG Oral Dosing Tablet Weight 104.545, kg, ONCE, STAT, Start date: 09/04/20 22:07:00 RIPPER OPERATOR, Stop date: 09/04/20 22:07:00 RIPPER OPERATOR Acetaminoph 2019-10 No 1 tab, Jose Francisco zhang en 325 MG / 2-06 Route: PO, l Hydrocodone 04:07: Drug Form: [place] Bitartrate 00 TAB, 5 MG Oral Dosing Tablet Weight 104.545, kg, ONCE, STAT, Start date: 09/04/20 22:07:00 RIPPER OPERATOR, Stop date: 09/04/20 22:07:00 RIPPER OPERATOR Acetaminoph 2019-10 No 1 tab, Jose Francisco zhang en 325 MG / 2-06 Route: PO, l Hydrocodone 04:07: Drug Form: [place] Bitartrate 00 TAB, 5 MG Oral Dosing Tablet Weight 104.545, kg, ONCE, STAT, Start date: 09/04/20 22:07:00 RIPPER OPERATOR, Stop date: 09/04/20 22:07:00 RIPPER OPERATOR Acetaminoph 2019-10 No 1 tab, Jose Francisco zhang en 325 MG / 2-06 Route: PO, l Hydrocodone 04:07: Drug Form: [place] Bitartrate 00 TAB, 5 MG Oral Dosing Tablet Weight 104.545, kg, ONCE, STAT, Start date: 09/04/20 22:07:00 RIPPER OPERATOR, Stop date: 09/04/20 22:07:00 RIPPER OPERATOR Acetaminoph 2020-1 No 1 tab, Jose Francisco zhang en 325 MG / 2-06 Route: PO, l Hydrocodone 04:07: Drug Form: [place] Bitartrate 00 TAB, 5 MG Oral Dosing Tablet Weight 104.545, kg, ONCE, STAT, Start date: 09/04/20 22:07:00 RIPPER OPERATOR, Stop date: 09/04/20 22:07:00 RIPPER OPERATOR Acetaminoph 2019-10 No 1 tab, Jose Francisco zhang en 325 MG / 2-06 Route: PO, l Hydrocodone 04:07: Drug Form: [place] Bitartrate 00 TAB, 5 MG Oral Dosing Tablet Weight 104.545, kg, ONCE, STAT, Start date: 09/04/20 22:07:00 RIPPER OPERATOR, Stop date: 09/04/20 22:07:00 RIPPER OPERATOR Acetaminoph 2019-10 No 1 tab, Jose Francisco zhang en 325 MG / 2-06 Route: PO, l Hydrocodone 04:07: Drug Form: [place] Bitartrate 00 TAB, 5 MG Oral Dosing Tablet Weight 104.545, kg, ONCE, STAT, Start date: 09/04/20 22:07:00 RIPPER OPERATOR, Stop date: 09/04/20 22:07:00 RIPPER OPERATOR Acetaminoph 2019-10 No 1 tab, Jose Francisco zhang en 325 MG / 2-06 Route: PO, l Hydrocodone 04:07: Drug Form: [place] Bitartrate 00 TAB, 5 MG Oral Dosing Tablet Weight 104.545, kg, ONCE, STAT, Start date: 09/04/20 22:07:00 RIPPER OPERATOR, Stop date: 09/04/20 22:07:00 RIPPER OPERATOR Acetaminoph 2019-10 No 1 tab, Jose Francisco zhang en 325 MG / 2-06 Route: PO, l Hydrocodone 04:07: Drug Form: [place] Bitartrate 00 TAB, 5 MG Oral Dosing Tablet Weight 104.545, kg, ONCE, STAT, Start date: 09/04/20 22:07:00 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, Stop date: 09/04/20 22:07:00 RIPPER OPERATOR Acetaminoph 2019-10 No 1 tab, Jose Francisco zhang en 325 MG / 2-06 Route: PO, l Hydrocodone 04:07: Drug Form: [place] Bitartrate 00 TAB, 5 MG Oral Dosing Tablet Weight 104.545, kg, ONCE, STAT, Start date: 09/04/20 22:07:00 RIPPER OPERATOR, Stop date: 09/04/20 22:07:00 RIPPER OPERATOR Acetaminoph 2019-10 No 1 tab, Jose Francisco zhang en 325 MG / 2-06 Route: PO, l Hydrocodone 04:07: Drug Form: [place] Bitartrate 00 TAB, 5 MG Oral Dosing Tablet Weight 104.545, kg, ONCE, STAT, Start date: 09/04/20 22:07:00 RIPPER OPERATOR, Stop date: 09/04/20 22:07:00 RIPPER OPERATOR Acetaminoph 2019-10 No 1 tab, Jose Francisco zhang en 325 MG / 2-06 Route: PO, l Hydrocodone 04:07: Drug Form: [place] Bitartrate 00 TAB, 5 MG Oral Dosing Tablet Weight 104.545, kg, ONCE, STAT, Start date: 09/04/20 22:07:00 RIPPER OPERATOR, Stop date: 09/04/20 22:07:00 RIPPER OPERATOR Acetaminoph 2019-10 No 1 tab, Jose Francisco zhang en 325 MG / 2-06 Route: PO, l Hydrocodone 04:07: Drug Form: [place] Bitartrate 00 TAB, 5 MG Oral Dosing Tablet Weight 104.545, kg, ONCE, STAT, Start date: 09/04/20 22:07:00 RIPPER OPERATOR, Stop date: 09/04/20 22:07:00 RIPPER OPERATOR Acetaminoph 2019-10 No 1 tab, Jose Francisco zhang en 325 MG / 2-06 Route: PO, l Hydrocodone 04:07: Drug Form: [place] Bitartrate 00 TAB, 5 MG Oral Dosing Tablet Weight 104.545, kg, ONCE, STAT, Start date: 09/04/20 22:07:00 RIPPER OPERATOR, Stop date: 09/04/20 22:07:00 RIPPER OPERATOR Acetaminoph 2019-10 No 1 tab, Jose Francisco zhang en 325 MG / 2-06 Route: PO, l Hydrocodone 04:07: Drug Form: [place] Bitartrate 00 TAB, 5 MG Oral Dosing Tablet Weight 104.545, kg, ONCE, STAT, Start date: 09/04/20 22:07:00 RIPPER OPERATOR, Stop date: 09/04/20 22:07:00 RIPPER OPERATOR HYDROcodone 2020-0 2020- No 1{tbl} 1 tablet, [facility] -acetaminop 06-28 Oral, ity of hen (NORCO 20:30: 19:23 ONCE, 1 Carlos as 5) 5-325 mg 00 :00 dose, Mon Med ical tablet 1 06/28/20 at [facility] h tablet 1530, DIMITRIS metoprolol 2019- [...] :00 ONCE, 1 Medical 25 mcg dose, [facility] 06/28/20 at 1315, STAT diphenoxyla 2019-0 Yes [...] rs SULFATE 9-28 ity of INHALE 12:14: [place] [address] [facility] diphenoxyla 2020-0 Yes 1{tbl} Take 1 Un martha te-atropine 9-28 tablet by ity of (LOMOTIL) 12:14: mouth [place] 2.5-0.025 43 every 6 Medical mg tablet (six) Branch hours as needed. ALBUTEROL 2020-0 Yes Inhale. Unive rs SULFATE 9-28 ity of INHALE 12:14: [place] [address] [facility] Branch acetaminoph 2020-0 Yes 4647 1{tbl} [...] Jessie nn 00 tab, 3 Refill(s), Pharmacy: [facility] #[id number], 149.86, cm, 05/25/20 13:41:00 CDT, Height, 95.455, kg, 05/25/20 13:41:00 CDT, Weight primidone 2020-0 Yes 50 mg = 1 Mem oria 50 mg oral 8-25 tab, PO, l tablet 19:03: BID, # 180 Jessie nn 00 tab, 3 Refill(s), Pharmacy: [facility] #[id number], 149.86, cm, 05/25/20 13:41:00 CDT, Height, 95.455, kg, 05/25/20 13:41:00 CDT, Weight primidone 2020-0 Yes 50 mg = 1 Mem oria 50 mg oral 8-25 tab, PO, l tablet 19:03: BID, # 180 Jessie nn 00 tab, 3 Refill(s), Pharmacy: [facility] #[id number], 149.86, cm, 05/25/20 13:41:00 CDT, Height, 95.455, kg, 05/25/20 13:41:00 CDT, Weight primidone 2020-0 Yes 50 mg = 1 Mem oria 50 mg oral 8-25 tab, PO, l tablet 19:03: BID, # 180 Jessie nn 00 tab, 3 Refill(s), Pharmacy: [facility] #[id number], 149.86, cm, 05/25/20 13:41:00 CDT, Height, 95.455, kg, 05/25/20 13:41:00 CDT, Weight primidone 2020-0 Yes 50 mg = 1 Mem oria 50 mg oral 8-25 tab, PO, l tablet 19:03: BID, # 180 Jessie nn 00 tab, 3 Refill(s), Pharmacy: [facility] #[id number], 149.86, cm, 05/25/20 13:41:00 CDT, Height, 95.455, kg, 05/25/20 13:41:00 CDT, Weight primidone 2020-0 Yes 50 mg = 1 Mem oria 50 mg oral 8-25 tab, PO, l tablet 19:03: BID, # 180 Jessie nn 00 tab, 3 Refill(s), Pharmacy: [id number], 149.86, cm, 05/25/20 13:41:00 CDT, Height, 95.455, kg, 05/25/20 13:41:00 CDT, Weight primidone 2020-0 Yes 50 mg = 1 Mem oria 50 mg oral 8-25 tab, PO, l tablet 19:03: BID, # 180 Jessie nn 00 tab, 3 Refill(s), Pharmacy: [id number], 149.86, cm, 05/25/20 13:41:00 CDT, Height, 95.455, kg, 05/25/20 13:41:00 CDT, Weight primidone 2020-0 Yes 50 mg = 1 Mem oria 50 mg oral 8-25 tab, PO, l tablet 19:03: BID, # 180 Jessie nn 00 tab, 3 Refill(s), Pharmacy: [facility] #[id number], 149.86, cm, 05/25/20 13:41:00 CDT, Height, 95.455, kg, 05/25/20 13:41:00 CDT, Weight primidone 2020-0 Yes 50 mg = 1 Mem oria 50 mg oral 8-25 tab, PO, l tablet 19:03: BID, # 180 Jessie nn 00 tab, 3 Refill(s), Pharmacy: [facility] #[id number], 149.86, cm, 05/25/20 13:41:00 CDT, Height, 95.455, kg, 05/25/20 13:41:00 CDT, Weight primidone 2020-0 Yes 50 mg = 1 Mem oria 50 mg oral 8-25 tab, PO, l tablet 19:03: BID, # 180 Jessie nn 00 tab, 3 Refill(s), Pharmacy: [id number], 149.86, cm, 05/25/20 13:41:00 CDT, Height, 95.455, kg, 05/25/20 13:41:00 CDT, Weight primidone 2020-0 Yes 50 mg = 1 Mem oria 50 mg oral 8-25 tab, PO, l tablet 19:03: BID, # 180 Jessie nn 00 tab, 3 Refill(s), Pharmacy: [id number], 149.86, cm, 05/25/20 13:41:00 CDT, Height, 95.455, kg, 05/25/20 13:41:00 CDT, Weight primidone 2020-0 Yes 50 mg = 1 Mem oria 50 mg oral 8-25 tab, PO, l tablet 19:03: BID, # 180 Jessie nn 00 tab, 3 Refill(s), Pharmacy: [facility] #[id number], 149.86, cm, 05/25/20 13:41:00 CDT, Height, 95.455, kg, 05/25/20 13:41:00 CDT, Weight primidone 2020-0 Yes 50 mg = 1 Mem oria 50 mg oral 8-25 tab, PO, l tablet 19:03: BID, # 180 Jessie nn 00 tab, 3 Refill(s), Pharmacy: [facility] #[id number], 149.86, cm, 05/25/20 13:41:00 CDT, Height, 95.455, kg, 05/25/20 13:41:00 CDT, Weight primidone 2020-0 Yes 50 mg = 1 Mem oria 50 mg oral 8-25 tab, PO, l tablet 19:03: BID, # 180 Jessie nn 00 tab, 3 Refill(s), Pharmacy: [id number], 149.86, cm, 05/25/20 13:41:00 CDT, Height, 95.455, kg, 05/25/20 13:41:00 CDT, Weight primidone 2020-0 Yes 50 mg = 1 Mem oria 50 mg oral 8-25 tab, PO, l tablet 19:03: BID, # 180 Jessie nn 00 tab, 3 Refill(s), Pharmacy: [id number], 149.86, cm, 05/25/20 13:41:00 CDT, Height, 95.455, kg, 05/25/20 13:41:00 CDT, Weight primidone 2020-0 Yes 50 mg = 1 Mem oria 50 mg oral 8-25 tab, PO, l tablet 19:03: BID, # 180 Jessie nn 00 tab, 3 Refill(s), Pharmacy: [id number], 149.86, cm, 05/25/20 13:41:00 CDT, Height, 95.455, kg, 05/25/20 13:41:00 CDT, Weight primidone 2020-0 No 50 mg = 1 Mem oria 50 mg oral 6-25 tab, PO, l tablet 13:48: Bedtime, # Jessie nn 00 90 tab, 3 Refill(s), Pharmacy: [id number], 149.86, cm, 03/24/20 9:12:00 CDT, Height, 90.909, kg, 03/24/20 9:12:00 CDT, Weight primidone 2020-0 No 50 mg = 1 Mem oria 50 mg oral 6-25 tab, PO, l tablet 13:48: Bedtime, # Jessie nn 00 90 tab, 3 Refill(s), Pharmacy: [id number], 149.86, cm, 03/24/20 9:12:00 CDT, [...] nn 00 90 tab, 3 Refill(s), Pharmacy: [id number], 149.86, cm, 03/24/20 9:12:00 CDT, Height, 90.909, kg, 03/24/20 9:12:00 CDT, Weight primidone 2020-0 No 50 mg = 1 Mem oria 50 mg oral 6-25 tab, PO, l tablet 13:48: Bedtime, # Jessie nn 00 90 tab, 3 Refill(s), Pharmacy: [id number], 149.86, cm, 03/24/20 9:12:00 CDT, Height, 90.909, kg, 03/24/20 9:12:00 CDT, Weight primidone 2020-0 No 50 mg = 1 Mem oria 50 mg oral 6-25 tab, PO, l tablet 13:48: Bedtime, # Jessie nn 00 90 tab, 3 Refill(s), Pharmacy: [id number], 149.86, cm, 03/24/20 9:12:00 CDT, Height, 90.909, kg, 03/24/20 9:12:00 CDT, Weight primidone 2020-0 No 50 mg = 1 Mem oria 50 mg oral 6-25 tab, PO, l tablet 13:48: Bedtime, # Jessie nn 00 90 tab, 3 Refill(s), Pharmacy: [id number], 149.86, cm, 03/24/20 9:12:00 CDT, Height, 90.909, kg, 03/24/20 9:12:00 CDT, Weight primidone 2020-0 No 50 mg = 1 Mem oria 50 mg oral 6-25 tab, PO, l tablet 13:48: Bedtime, # Jessie nn 00 90 tab, 3 Refill(s), Pharmacy: [id number], 149.86, cm, 03/24/20 9:12:00 CDT, Height, 90.909, kg, 03/24/20 9:12:00 CDT, Weight primidone 2020-0 No 50 mg = 1 Mem oria 50 mg oral 6-25 tab, PO, l tablet 13:48: Bedtime, # Jessie nn 00 90 tab, 3 Refill(s), Pharmacy: [id number], 149.86, cm, 03/24/20 9:12:00 CDT, Height, 90.909, kg, 03/24/20 9:12:00 CDT, Weight primidone 2020-0 No 50 mg = 1 Mem oria 50 mg oral 6-25 tab, PO, l tablet 13:48: Bedtime, # Jessie nn 00 90 tab, 3 Refill(s), Pharmacy: [facility] #[id number], 149.86, cm, 03/24/20 9:12:00 CDT, Height, 90.909, kg, 03/24/20 9:12:00 CDT, Weight primidone 2020-0 No 50 mg = 1 Mem oria 50 mg oral 6-25 tab, PO, l tablet 13:48: Bedtime, # Jessie nn 00 90 tab, 3 Refill(s), Pharmacy: [id number], 149.86, cm, 03/24/20 9:12:00 CDT, Height, 90.909, kg, 03/24/20 9:12:00 CDT, Weight donepezil 2020-0 Yes 10 mg = 1 Mem oria 10 mg oral 6-24 tab, PO, l tablet 14:32: Daily, # Raul 00 30 tab, 3 Refill(s), Pharmacy: [id number], 149.86, cm, 03/24/20 9:12:00 CDT, Height, 90.909, kg, 03/24/20 9:12:00 CDT, Weight primidone 2020-0 No 50 mg = 1 Mem oria 50 mg oral 6-24 tab, PO, l tablet 14:32: Bedtime, X Jessie nn 00 30 day, # 30 tab, 3 Refill(s), Pharmacy: [facility] #[id number], 149.86, cm, 03/24/20 9:12:00 CDT, Height, 90.909, kg, 03/24/20 9:12:00 CDT, Weight donepezil 2020-0 Yes 10 mg = 1 Mem oria 10 mg oral 6-24 tab, PO, l tablet 14:32: Daily, # Raul 00 30 tab, 3 Refill(s), Pharmacy: [id number], 149.86, cm, 03/24/20 9:12:00 CDT, Height, 90.909, kg, 03/24/20 9:12:00 CDT, Weight primidone 2020-0 No 50 mg = 1 Mem oria 50 mg oral 6-24 tab, PO, l tablet 14:32: Bedtime, X Jessie nn 30 day, # 30 tab, 3 Refill(s), Pharmacy: [facility] #[id number], 149.86, cm, 03/24/20 9:12:00 CDT, Height, 90.909, kg, 03/24/20 9:12:00 CDT, Weight donepezil 2020-0 Yes 10 mg = 1 Mem oria 10 mg oral 6-24 tab, PO, l tablet 14:32: Daily, # [place] 00 30 tab, 3 Refill(s), Pharmacy: [facility] #[id number], 149.86, cm, 03/24/20 9:12:00 CDT, Height, 90.909, kg, 03/24/20 9:12:00 CDT, Weight primidone 2020-0 No 50 mg = 1 Mem oria 50 mg oral 6-24 tab, PO, l tablet 14:32: Bedtime, X Jessie nn 30 day, # 30 tab, 3 Refill(s), Pharmacy: [id number], 149.86, cm, 03/24/20 9:12:00 CDT, Height, 90.909, kg, 03/24/20 9:12:00 CDT, Weight donepezil 2020-0 Yes 10 mg = 1 Mem oria 10 mg oral 6-24 tab, PO, l tablet 14:32: Daily, # Raul 00 30 tab, 3 Refill(s), Pharmacy: [facility] #[id number], 149.86, cm, 03/24/20 9:12:00 CDT, Height, 90.909, kg, 03/24/20 9:12:00 CDT, Weight primidone 2020-0 No 50 mg = 1 Mem oria 50 mg oral 6-24 tab, PO, l tablet 14:32: Bedtime, X Jessie nn 30 day, # 30 tab, 3 Refill(s), Pharmacy: [id number], 149.86, cm, 03/24/20 9:12:00 CDT, Height, 90.909, kg, 03/24/20 9:12:00 CDT, Weight donepezil 2020-0 Yes 10 mg = 1 Mem oria 10 mg oral 6-24 tab, PO, l tablet 14:32: Daily, # Raul 00 30 tab, 3 Refill(s), Pharmacy: [id number], 149.86, cm, 03/24/20 9:12:00 CDT, Height, 90.909, kg, 03/24/20 9:12:00 CDT, Weight primidone 2020-0 No 50 mg = 1 Mem oria 50 mg oral 6-24 tab, PO, l tablet 14:32: Bedtime, X Jessie nn 30 day, # 30 tab, 3 Refill(s), Pharmacy: [id number], 149.86, cm, 03/24/20 9:12:00 CDT, Height, 90.909, kg, 03/24/20 9:12:00 CDT, Weight donepezil 2020-0 Yes 10 mg = 1 Mem oria 10 mg oral 6-24 tab, PO, l tablet 14:32: Daily, # Raul 00 30 tab, 3 Refill(s), Pharmacy: [id number], 149.86, cm, 03/24/20 9:12:00 CDT, Height, 90.909, kg, 03/24/20 9:12:00 CDT, Weight primidone 2020-0 No 50 mg = 1 Mem oria 50 mg oral 6-24 tab, PO, l tablet 14:32: Bedtime, X Jessie nn 30 day, # 30 tab, 3 Refill(s), Pharmacy: [id number], 149.86, cm, 03/24/20 9:12:00 CDT, Height, 90.909, kg, 03/24/20 9:12:00 CDT, Weight donepezil 2020-0 Yes 10 mg = 1 Mem oria 10 mg oral 6-24 tab, PO, l tablet 14:32: Daily, # Raul 00 30 tab, 3 Refill(s), Pharmacy: [id number], 149.86, cm, 03/24/20 9:12:00 CDT, Height, 90.909, kg, 03/24/20 9:12:00 CDT, Weight primidone 2020-0 No 50 mg = 1 Mem oria 50 mg oral 6-24 tab, PO, l tablet 14:32: Bedtime, X Jessie nn 30 day, # 30 tab, 3 Refill(s), Pharmacy: [facility] #[id number], 149.86, cm, 03/24/20 9:12:00 CDT, Height, 90.909, kg, 03/24/20 9:12:00 CDT, Weight donepezil 2020-0 Yes 10 mg = 1 Mem oria 10 mg oral 6-24 tab, PO, l tablet 14:32: Daily, # Raul 00 30 tab, 3 Refill(s), Pharmacy: [facility] #[id number], 149.86, cm, 03/24/20 9:12:00 CDT, Height, 90.909, kg, 03/24/20 9:12:00 CDT, Weight primidone 2020-0 No 50 mg = 1 Mem oria 50 mg oral 6-24 tab, PO, l tablet 14:32: Bedtime, X Jessie nn 30 day, # 30 tab, 3 Refill(s), Pharmacy: [id number], 149.86, cm, 03/24/20 9:12:00 CDT, Height, 90.909, kg, 03/24/20 9:12:00 CDT, Weight donepezil 2020-0 Yes 10 mg = 1 Mem oria 10 mg oral 6-24 tab, PO, l tablet 14:32: Daily, # [place] 00 30 tab, 3 Refill(s), Pharmacy: [facility] #[id number], 149.86, cm, 03/24/20 9:12:00 CDT, Height, 90.909, kg, 03/24/20 9:12:00 CDT, Weight primidone 2020-0 No 50 mg = 1 Mem oria 50 mg oral 6-24 tab, PO, l tablet 14:32: Bedtime, X Jessie nn 30 day, # 30 tab, 3 Refill(s), Pharmacy: [facility] #[id number], 149.86, cm, 03/24/20 9:12:00 CDT, Height, 90.909, kg, 03/24/20 9:12:00 CDT, Weight donepezil 2020-0 Yes 10 mg = 1 Mem oria 10 mg oral 6-24 tab, PO, l tablet 14:32: Daily, # [place] 00 30 tab, 3 Refill(s), Pharmacy: [facility] #[id number], 149.86, cm, 03/24/20 9:12:00 CDT, Height, 90.909, kg, 03/24/20 9:12:00 CDT, Weight primidone 2020-0 No 50 mg = 1 Mem oria 50 mg oral 6-24 tab, PO, l tablet 14:32: Bedtime, X Jessie nn 30 day, # 30 tab, 3 Refill(s), Pharmacy: [id number], 149.86, cm, 03/24/20 9:12:00 CDT, Height, 90.909, kg, 03/24/20 9:12:00 CDT, Weight donepezil 2020-0 Yes 10 mg = 1 Mem oria 10 mg oral 6-24 tab, PO, l tablet 14:32: Daily, # Raul 00 30 tab, 3 Refill(s), Pharmacy: [facility] #[id number], 149.86, cm, 03/24/20 9:12:00 CDT, Height, 90.909, kg, 03/24/20 9:12:00 CDT, Weight primidone 2020-0 No 50 mg = 1 Mem oria 50 mg oral 6-24 tab, PO, l tablet 14:32: Bedtime, X Jessie nn 30 day, # 30 tab, 3 Refill(s), Pharmacy: [id number], 149.86, cm, 03/24/20 9:12:00 CDT, Height, 90.909, kg, 03/24/20 9:12:00 CDT, Weight donepezil 2020-0 Yes 10 mg = 1 Mem oria 10 mg oral 6-24 tab, PO, l tablet 14:32: Daily, # Raul 00 30 tab, 3 Refill(s), Pharmacy: [id number], 149.86, cm, 03/24/20 9:12:00 CDT, Height, 90.909, kg, 03/24/20 9:12:00 CDT, Weight primidone 2020-0 No 50 mg = 1 Mem oria 50 mg oral 6-24 tab, PO, l tablet 14:32: Bedtime, X Jessie nn 30 day, # 30 tab, 3 Refill(s), Pharmacy: [id number], 149.86, cm, 03/24/20 9:12:00 CDT, Height, 90.909, kg, 03/24/20 9:12:00 CDT, Weight donepezil 2020-0 Yes 10 mg = 1 Mem oria 10 mg oral 6-24 tab, PO, l tablet 14:32: Daily, # Raul 00 30 tab, 3 Refill(s), Pharmacy: [id number], 149.86, cm, 03/24/20 9:12:00 CDT, Height, 90.909, kg, 03/24/20 9:12:00 CDT, Weight primidone 2020-0 No 50 mg = 1 Mem oria 50 mg oral 6-24 tab, PO, l tablet 14:32: Bedtime, X Jessie nn 30 day, # 30 tab, 3 Refill(s), Pharmacy: [id number], 149.86, cm, 03/24/20 9:12:00 CDT, Height, 90.909, kg, 03/24/20 9:12:00 CDT, Weight donepezil 2020-0 Yes 10 mg = 1 Mem oria 10 mg oral 6-24 tab, PO, l tablet 14:32: Daily, # Raul 00 30 tab, 3 Refill(s), Pharmacy: [id number], 149.86, cm, 03/24/20 9:12:00 CDT, Height, 90.909, kg, 03/24/20 9:12:00 CDT, Weight primidone 2020-0 No 50 mg = 1 Mem oria 50 mg oral 6-24 tab, PO, l tablet 14:32: Bedtime, X Jessie nn 30 day, # 30 tab, 3 Refill(s), Pharmacy: [id number], 149.86, cm, 03/24/20 9:12:00 CDT, Height, 90.909, kg, 03/24/20 9:12:00 CDT, Weight donepezil 2020-0 Yes 10 mg = 1 Mem oria 10 mg oral 6-24 tab, PO, l tablet 14:32: Daily, # Raul 00 30 tab, 3 Refill(s), Pharmacy: [id number], 149.86, cm, 03/24/20 9:12:00 CDT, Height, 90.909, kg, 03/24/20 9:12:00 CDT, Weight primidone 2020-0 No 50 mg = 1 Mem oria 50 mg oral 6-24 tab, PO, l tablet 14:32: Bedtime, X Jessie nn 30 day, # 30 tab, 3 Refill(s), Pharmacy: [id number], 149.86, cm, 03/24/20 9:12:00 CDT, Height, 90.909, kg, 03/24/20 9:12:00 CDT, Weight donepezil 2020-0 Yes 10 mg = 1 Mem oria 10 mg oral 6-24 tab, PO, l tablet 14:32: Daily, # [place] 00 30 tab, 3 Refill(s), Pharmacy: [id number], 149.86, cm, 03/24/20 9:12:00 CDT, Height, 90.909, kg, 03/24/20 9:12:00 CDT, Weight primidone 2020-0 No 50 mg = 1 Mem oria 50 mg oral 6-24 tab, PO, l tablet 14:32: Bedtime, X Jessie nn 00 30 day, # 30 tab, 3 Refill(s), Pharmacy: [id number], 149.86, cm, 03/24/20 9:12:00 CDT, Height, 90.909, kg, 03/24/20 9:12:00 CDT, Weight sucralfate 2019-0 Yes [id number] .[id number][in_ Apply 0.25 [facility] malate, 5- us] Inches as ity of polymerized 00:00: directed 4 [place] 1 gram/ 00 (four) Medical mL Pste times Branch daily as needed for Pain (scale 1-3). sucralfate 2019-0 2020- No [id number] .[id number][in_ Apply 0.25 [facility] malate, 5- us] Inches as ity of polymerized 00:00: 00:00 directed 4 [place] 1 gram/10 00 :00 (four) Medical mL [...] 7-26 MISC, l 21:45: Daily, # 1 [place] 00 ea, 0 Refill(s) [place] 2019-0 Yes 1 ea, Memoria 7-26 MISC, l 21:45: Daily, # 1 Raul 00 ea, 0 Refill(s) [place] 2018-0 Yes 1 ea, Memoria 7-26 MISC, l 21:45: Daily, # 1 [place] 00 ea, 0 Refill(s) [place] 2018-0 Yes 1 ea, Memoria 7-26 MISC, l 21:45: Daily, # 1 Raul 00 ea, 0 Refill(s) [place] 2018-0 Yes 1 ea, Memoria 7-26 MISC, l 21:45: Daily, # 1 [place] 00 ea, 0 Refill(s) Walker 2018-0 Yes 1 ea, Memoria 7-26 MISC, l 21:45: Daily, # 1 [place] 00 ea, 0 Refill(s) Walker 2018-0 Yes 1 ea, Memoria 7-26 MISC, l 21:45: Daily, # 1 [place] 00 ea, 0 Refill(s) Walker 2018-0 Yes 1 ea, Memoria 7-26 MISC, l 21:45: Daily, # 1 Raul 00 ea, 0 Refill(s) [place] 2019-0 Yes 1 ea, Memoria 7-26 MISC, l 21:45: Daily, # 1 Raul 00 ea, 0 Refill(s) [place] 2019-0 Yes 1 ea, Memoria 7-26 MISC, l 21:45: Daily, # 1 [place] 00 ea, 0 Refill(s) Walker 2019-0 Yes 1 ea, Memoria 7-26 MISC, l 21:45: Daily, # 1 [place] 00 ea, 0 Refill(s) Walker 2019-0 Yes 1 ea, Memoria 7-26 MISC, l 21:45: Daily, # 1 [place] 00 ea, 0 Refill(s) Walker 2019-0 Yes 1 ea, Memoria 7-26 MISC, l 21:45: Daily, # 1 [place] 00 ea, 0 Refill(s) Walker 2019-0 Yes 1 ea, Memoria 7-26 MISC, l 21:45: Daily, # 1 [place] 00 ea, 0 Refill(s) Walker 2019-0 Yes 1 ea, Memoria 7-26 MISC, l 21:45: Daily, # 1 [place] 00 ea, 0 Refill(s) Walker 2018-0 Yes 1 ea, Memoria 7-26 MISC, l 21:45: Daily, # 1 Raul 00 ea, 0 Refill(s) Adult 2019-0 Yes 81 mg = 1 Memoria Aspirin 81 6-21 tab, CHEW, l mg oral 20:18: Daily, # Ajay n tablet, 00 30 tab, 3 chewable Refill(s), Pharmacy: [facility] #[id number] Adult 2019-0 Yes 81 mg = 1 [place] Aspirin 81 6-21 tab, CHEW, l mg oral 20:18: Daily, # Ajay n tablet, 00 30 tab, 3 chewable Refill(s), Pharmacy: [facility] #[id number] Adult 2019-0 Yes 81 mg = 1 [place] Aspirin 81 6-21 tab, CHEW, l mg oral 20:18: Daily, # Ajay n tablet, 00 30 tab, 3 chewable Refill(s), Pharmacy: [facility] #[id number] Adult 2019-0 Yes 81 mg = 1 [place] Aspirin 81 6-21 tab, CHEW, l mg oral 20:18: Daily, # Ajay n tablet, 00 30 tab, 3 chewable Refill(s), [facility]acy: [facility] #[id number] Adult 2019-0 Yes 81 mg = 1 [place] Aspirin 81 6-21 tab, CHEW, l mg oral 20:18: Daily, # Ajay n tablet, 00 30 tab, 3 chewable Refill(s), Pharmacy: [facility] #[id number] Adult 2019-0 Yes 81 mg = 1 [place] Aspirin 81 6-21 tab, CHEW, l mg oral 20:18: Daily, # Ajay n tablet, 00 30 tab, 3 chewable Refill(s), Pharmacy: [facility] #[id number] Adult 2019-0 Yes 81 mg = 1 [place] Aspirin 81 6-21 tab, CHEW, l mg oral 20:18: Daily, # Ajay n tablet, 00 30 tab, 3 chewable Refill(s), Pharmacy: [facility] #[id number] Adult 2019-0 Yes 81 mg = 1 Memoria Aspirin 81 6-21 tab, CHEW, l mg oral 20:18: Daily, # Ajay n tablet, 00 30 tab, 3 chewable Refill(s), [id number] Adult 2019-0 Yes 81 mg = 1 [facility] Aspirin 81 6-21 tab, CHEW, l mg oral 20:18: Daily, # Ajay n tablet, 00 30 tab, 3 chewable Refill(s), [id number] Adult 2019-0 Yes 81 mg = 1 [facility] Aspirin 81 6-21 tab, CHEW, l mg oral 20:18: Daily, # Ajay n tablet, 00 30 tab, 3 chewable Refill(s), [id number] Adult [address] Yes 81 mg = 1 [place] Aspirin 81 6-21 tab, CHEW, l mg oral 20:18: Daily, # Ajay n tablet, 30 tab, 3 chewable Refill(s), [id number] Adult [address] Yes 81 mg = 1 [place] Aspirin 81 6-21 tab, CHEW, l mg oral 20:18: Daily, # Ajay n tablet, 00 30 tab, 3 chewable Refill(s), [id number] Adult [address] Yes 81 mg = 1 [place] Aspirin 81 6-21 tab, CHEW, l mg oral 20:18: Daily, # Ajay n tablet, 00 30 tab, 3 chewable Refill(s), [id number] Adult [address] Yes 81 mg = 1 Mem[facility] Aspirin 81 6-21 tab, CHEW, l mg oral 20:18: Daily, # Ajay n tablet, 00 30 tab, 3 chewable Refill(s), [id number] Adult 2019-0 Yes 81 mg = 1 Mem[facility] Aspirin 81 6-21 tab, CHEW, l mg oral 20:18: Daily, # Ajay n tablet, 00 30 tab, 3 chewable Refill(s), [id number] Adult 2019-0 Yes 81 mg = 1 [place] Aspirin 81 6-21 tab, CHEW, l mg oral 20:18: Daily, # Ajay n tablet, 00 30 tab, 3 chewable Refill(s), Pharmacy: [facility] #[id number] levothyroxi 2019-0 Yes 125 Memori a [...] Raul 00 90 tab, 0 Refill(s) Atropine 0 [...] nn 00 30 tab, 0 Refill(s) rOPINIRole 20190 Yes 2 mg = 1 Mem oria 2 mg oral 5-24 tab, PO, l tablet 20:06: BID, 0 [place] 00 Refill(s) lisinopril 0 Yes 40 mg = 1 Me moria [...] tab, PO, l tablet 20:06: Daily, # [place] 00 90 tab, 0 Refill(s) Atropine 2019-0 [...] tab, PO, l tablet 20:06: BID, 0 [place] 00 Refill(s) lisinopril 2019-0 Yes 40 mg [...] tab, PO, l tablet 20:06: BID, 0 [place] 00 Refill(s) lisinopril 2019- Yes 40 mg = 1 Me moria 40 mg oral 5-24 tab, PO, l tablet 20:06: Daily, # [place] 00 30 tab, 0 Refill(s) donepezil Yes 10 mg = 1 Mem oria 10 mg oral 5-24 tab, PO, l tablet 20:06: Daily, # [place] 00 30 tab, 0 Refill(s) ProAir HFA [...] tab, PO, l tablet 20:06: Daily, # [place] 00 90 tab, 0 Refill(s) Atropine 2019-0 [...] tab, PO, l tablet 20:06: BID, 0 [place] 00 Refill(s) lisinopril 2019-0 Yes 40 mg = 1 Me moria 40 mg oral 5-24 tab, PO, l tablet 20:06: Daily, # [place] 00 30 tab, 0 Refill(s) donepezil 2018-0 Yes 10 mg = 1 Mem oria 10 mg oral 5-24 tab, PO, l tablet 20:06: Daily, # [place] 00 30 tab, 0 Refill(s) ProAir HFA [...] tab, PO, l tablet 20:06: Daily, # [place] 00 90 tab, 0 Refill(s) Atropine 2019- [...] tab, PO, l tablet 20:06: Daily, # [place] 00 30 tab, 0 Refill(s) donepezil 2018-0 Yes 10 mg = 1 Mem oria 10 mg oral 5-24 tab, PO, l tablet 20:06: Daily, # [place] 00 30 tab, 0 Refill(s) ProAir HFA [...] tab, PO, l tablet 20:06: Daily, # [place] 90 tab, 0 Refill(s) Atropine 2019- Yes [...] tab, PO, l tablet 20:06: Daily, # [place] 00 30 tab, 0 Refill(s) ProAir HFA [...] tab, PO, l tablet 20:06: Daily, # [place] 00 30 tab, 0 Refill(s) donepezil 2018-0 Yes 10 mg = 1 Mem oria 10 mg oral 5-24 tab, PO, l tablet 20:06: Daily, # [place] 00 30 tab, 0 Refill(s) ProAir HFA 0 Yes 1 - 2 Memori a 5-24 puffs, PO, l 20:06: Q4H, PRN Raul 00 Wheezing / cough / shortness of breath, # 1 ea, 0 Refill(s) amLODIPine 2018- Yes 5 mg = 1 Mem oria 5 mg oral 5-24 tab, PO, l tablet 20:06: Daily, # [place] 00 90 tab, 0 Refill(s) Atropine 2018-0 Yes 2 tab, PO, Mem oria Sulfate 5-24 PRN, PRN l 0.025 MG / 20:06: for loose He rm Diphenoxyla 00 stool, 0 te Refill(s) Hydrochlori [...] Raul 00 30 tab, 0 Refill(s) donepezil 2018-0 Yes 10 mg = 1 Mem oria 10 mg oral 5-24 tab, PO, l tablet 20:06: Daily, # [place] 00 30 tab, 0 Refill(s) ProAir HFA [...] tab, PO, l tablet 20:06: Daily, # [place] 00 90 tab, 0 Refill(s) Atropine 2019-0 [...] 5-24 puffs, PO, l 20:06: Q4H, PRN [place] 00 Wheezing / cough / shortness of [...] tab, PO, l tablet 20:06: Daily, # [place] 00 90 tab, 0 Refill(s) Atropine 2019-0 [...] tab, PO, l tablet 20:06: BID, 0 [place] 00 Refill(s) lisinopril 2019-0 Yes 40 mg = 1 Me moria 40 mg oral 5-24 tab, PO, l tablet 20:06: Daily, # [place] 00 30 tab, 0 Refill(s) donepezil 2019-0 Yes 10 mg = 1 Mem oria 10 mg oral 5-24 tab, PO, l tablet 20:06: Daily, # [place] 00 30 tab, 0 Refill(s) ProAir HFA [...] tab, PO, l tablet 20:06: Daily, # [place] 00 90 tab, 0 Refill(s) Atropine 2019-0 [...] tab, PO, l tablet 20:06: Daily, # [place] 00 30 tab, 0 Refill(s) ProAir HFA [...] tab, PO, l tablet 20:06: Daily, # [place] 00 30 tab, 0 Refill(s) ProAir HFA [...] tab, PO, l tablet 20:06: Daily, # [place] 00 90 tab, 0 Refill(s) Atropine 2019-0 [...] tab, PO, l tablet 20:06: BID, 0 [place] 00 Refill(s) lisinopril 2019-0 Yes 40 mg [...] tab, PO, l tablet 20:06: Daily, # [place] 00 90 tab, 0 Refill(s) Atropine 2019-0 [...] tab, PO, l tablet 20:06: BID, 0 [place] 00 Refill(s) lisinopril 2019-0 Yes 40 mg = 1 Me moria 40 mg oral 5-24 tab, PO, l tablet 20:06: Daily, # [place] 00 30 tab, 0 Refill(s) donepezil 2019-0 Yes 10 mg = 1 Mem oria 10 mg oral 5-24 tab, PO, l tablet 20:06: Daily, # [place] 00 30 tab, 0 Refill(s) ProAir HFA 2019-0 Yes 1 - 2 Memori a 5-24 puffs, PO, l 20:06: Q4H, PRN [place] 00 Wheezing / cough / shortness of [...] tab, PO, l tablet 20:06: Daily, # [place] 00 90 tab, 0 Refill(s) Atropine Yes [...] tab, PO, l tablet 20:06: Daily, # [place] 00 30 tab, 0 Refill(s) donepezil 2019 Yes 10 mg = 1 Mem oria 10 mg oral 5-24 tab, PO, l tablet 20:06: Daily, # [place] 00 30 tab, 0 Refill(s) ProAir HFA Yes 1 - 2 Memori a 5-24 puffs, PO, l 20:06: Q4H, PRN [place] 00 Wheezing / cough / shortness of [...] tab, PO, l tablet 20:06: BID, 0 [place] 00 Refill(s) lisinopril 2019 Yes 40 mg [...] Branch acetaminoph 2017-10 Yes Univer s en-codeine -18 ity of 300-30 mg [...] [place] tablet 36 daily. [facility] amLODIPine 2017- Yes 5mg Take 5 mg Un martha (NORVASC) 5 3-07 by mouth ity of mg tablet 17:04: daily. [place] [facility] lovastatin 20170 Yes 20mg Take 20 mg U nivers (MEVACOR) 3-07 by mouth ity of 20 mg 17:04: daily. [place] tablet 36 Medical Branch lisinopril 20170 Yes 40mg Take 40 mg U nivers (PRINIVIL,Z 3-07 by mouth ity of ESTRIL) 40 17:04: daily. [place] mg tablet 36 Medical Branch escitalopra 2017 [...] mouth ity of mg tablet 17:04: daily. [place] [address] Medical Branch lovastatin 2017-0 Yes 20mg Take 20 mg U nivers (MEVACOR) 3-07 by mouth ity of 20 mg 17:04: daily. [place] tablet 36 Medical Branch lisinopril 2017-0 Yes 40mg Take 40 mg U nivers (PRINIVIL,Z 3-07 by mouth ity of ESTRIL) 40 17:04: daily. [place] mg tablet 36 Medical Branch escitalopra 2017-0 [...] mouth ity of XL (TOPROL 17:04: daily. [place] XL) 50 mg 36 Medical 24 hr [...] mouth ity of mg tablet 17:04: daily. [place] [address] Medical Branch lovastatin 2017-0 Yes 20mg Take 20 mg U nivers (MEVACOR) 3-07 by mouth ity of 20 mg 17:04: daily. [place] tablet 36 Medical Branch lisinopril 2017-0 Yes 40mg Take 40 mg U nivers (PRINIVIL,Z 3-07 by mouth ity of ESTRIL) 40 11:04: daily. [place] mg tablet 36 Medical Branch escitalopra 2017-0 [...] mouth ity of XL (TOPROL 11:04: daily. [place] XL) 50 mg 36 Medical 24 hr [...] of 10 mg 11:04: daily. [place] tablet Medical Branch amLODIPine 2017-0 Yes 5mg Take 5 mg Un martha (NORVASC) 5 3-07 by mouth ity of mg tablet 11:04: daily. [place] [address] Medical Branch lovastatin 2017-0 Yes 20mg Take 20 mg U nivers (MEVACOR) 3-07 by mouth ity of 20 mg 11:04: daily. [facility] 36 Medical Branch lisinopril 2017-0 Yes 40mg [...] mouth ity of XL (TOPROL 11:04: daily. [place] XL) 50 mg 36 Medical 24 hr [...] mouth ity of mg tablet 11:04: daily. [place] [address] Medical Branch lovastatin Yes 20mg Take 20 mg U nivers (MEVACOR) 3-07 by mouth ity of 20 mg 11:04: daily. [place] tablet 36 Medical Branch carvedilol carvedilol No carvedilol [facility] [...] blood 2022-08-05 20:00:00 122 mm[Hg] Univer sity [facility] Diastolic blood 2022-08-05 20:00:00 77 mm[Hg] Unive [facility] Heart rate 2022-08-05 20:00:00 50 /min [facility] Respiratory rate 2022-08-05 20:00:00 18 /min [facility] Oxygen saturation in 2022-08-05 20:00:00 94 /min [facility] blood by [facility] Pulse oximetry Branch Body temperature 2022-08-05 17:24:00 36 Trace[facility] Body height 2022-08-05 17:24:00 149.9 cm [facility] Body weight 2022-08-05 17:24:00 83.915 kg [facility] BMI 2022-08-05 17:24:00 37.37 kg/m2 [facility] height 2022-07-27 13:15:00 59 [in_i] [facility] weight 2022-07-27 13:15:00 188.2 [lb_av] [facility] temperature 2022-07-27 13:15:00 97.6 [degF] [facility] bmi 2022-07-27 13:15:00 38.01 kg/m2 [facility] blood pressure 2022-07-27 13:15:00 125 mm[Hg] [facility] blood pressure 2022-07-27 13:15:00 82 mm[Hg] [facility] diastolic [facility] height 2022-06-15 13:30:00 59 [in_i] [facility] weight 2022-06-15 13:30:00 193 [lb_av] [facility] temperature 2022-06-15 13:30:00 98.1 [degF] [facility] bmi 2022-06-15 13:30:00 38.98 kg/m2 Common S [facility] blood pressure 2022-06-15 13:30:00 128 mm[Hg] [facility] - systolic [facility] blood pressure 2022-06-15 13:30:00 76 mm[Hg] [facility] - diastolic [facility] height 2021-10-17 14:30:00 59 [in_i] [facility] weight 2021-10-17 14:30:00 220 [lb_av] [facility] temperature 2021-10-17 14:30:00 97.9 [degF] [facility] S [facility] bmi 2021-10-17 14:30:00 44.43 kg/m2 [facility] S [facility] blood pressure 2021-10-17 14:30:00 126 mm[Hg] [facility] systolic [facility] blood pressure 2021-10-17 14:30:00 74 mm[Hg] [facility] diastolic [facility] Systolic blood 2020-06-28 19:30:00 180 mm[Hg] Univer sity [facility] Diastolic blood 2020-06-28 19:30:00 82 mm[Hg] [facility] 2020-06-28 19:30:00 61 /min [facility] Respiratory rate 2020-06-28 19:13:00 17 /min Univ [facility] Oxygen saturation in 2020-06-28 19:13:00 96 /min [facility] Arterial blood by [facility] Pulse oximetry Branch Body temperature 2020-06-28 16:54:00 36.33 Tracee [facility] Body weight 2020-06-28 16:54:00 95.255 kg [facility] BMI 2020-06-28 16:54:00 42.41 kg/m2 [facility] Systolic blood 2020-06-28 19:30:00 180 mm[Hg] Univer sity of pressure [place] [facility] Diastolic blood 2020-06-28 19:30:00 82 mm[Hg] Unive rsity of pressure [place] [facility] Heart rate 2020-06-28 19:30:00 61 /min [facility] [place] [facility] Respiratory rate 2020-06-28 19:13:00 17 /min Univ ers[facility] [place] [facility] Oxygen saturation in 2020-06-28 19:13:00 96 /min University of Arterial blood by [facility] tania Pulse oximetry Branch Body temperature 2020-06-28 16:54:00 36.33 Tracee Univ [facility] [place] [facility] Body weight 2020-06-28 16:54:00 95.255 kg [facility] [place] [facility] BMI 2020-06-28 16:54:00 42.41 kg/m2 [facility] [place] [facility] Systolic blood 2020-02-19 19:23:00 160 mm[Hg] Univer sity of pressure [place] [facility] Diastolic blood 2020-02-19 19:23:00 84 mm[Hg] Unive rsity of pressure [place] [facility] Heart rate 2020-02-19 19:23:00 63 /min [facility] [place] [facility] Body temperature 2020-02-19 19:23:00 36.39 Tracee Univ ers[facility] [place] [facility] Respiratory rate 2020-02-19 19:23:00 15 /min Univ [facility] [place] [facility] Body height 2020-02-19 19:23:00 149.9 cm [facility] [place] [facility] Body weight 2020-02-19 19:23:00 99.791 kg [facility] [place] [facility] BMI 2020-02-19 19:23:00 44.43 kg/m2 [facility] [place] [facility] Oxygen saturation in 2020-02-19 19:23:00 96 /min University of Arterial blood by [facility] tania Pulse oximetry Branch Systolic blood 2020-02-19 19:23:00 160 mm[Hg] Univer sity of pressure [place] [facility] Diastolic blood 2020-02-19 19:23:00 84 mm[Hg] Unive rsity of pressure [place] [facility] Heart rate 2020-02-19 19:23:00 63 /min [facility] [place] [facility] Body temperature 2020-02-19 19:23:00 36.39 Tracee Univ [facility] [place] [facility] Respiratory rate 2020-02-19 19:23:00 15 /min Univ [facility] [place] [facility] Body height 2020-02-19 19:23:00 149.9 cm [facility] [place] [facility] Body weight 2020-02-19 19:23:00 99.791 kg [facility] [place] [facility] BMI 2020-02-19 19:23:00 44.43 kg/m2 [facility] Branch Oxygen saturation in 2020-02-19 19:23:00 96 /min University of Arterial blood by [place] [facility] tania Pulse oximetry Branch Systolic blood 2019-12-10 04:00:00 202 mm[Hg] Univer sity of pressure [place] [facility] Diastolic blood 2019-12-10 04:00:00 92 mm[Hg] Unive rsity of pressure [place] [facility] Heart rate 2019-12-10 04:00:00 75 /min [facility] [place] [facility] Respiratory rate 2019-12-10 04:00:00 18 /min Univ [facility] [place] [facility] Oxygen saturation in 2019-12-10 04:00:00 98 /min University of Arterial blood by [facility] Pulse oximetry Branch Body temperature 2019-12-10 02:51:13 36.39 Tracee Univ [facility] [place] [facility] Body height 2019-12-10 02:28:00 162.6 cm [facility] [place] [facility] Body weight 2019-12-10 02:28:00 104.327 kg [facility] [place] [facility] BMI 2019-12-10 02:28:00 39.48 kg/m2 [facility] [place] [facility] Systolic blood 2019-12-10 04:00:00 202 mm[Hg] Univer sity of pressure [place] [facility] Diastolic blood 2019-12-10 04:00:00 92 mm[Hg] Unive rsity of pressure [place] [facility] Heart rate 2019-12-10 04:00:00 75 /min [facility] [place] [facility] Respiratory rate 2019-12-10 04:00:00 18 /min Univ [facility] [place] [facility] Oxygen saturation in 2019-12-10 04:00:00 98 /min [facility] of Arterial blood by [facility] Pulse oximetry [place] Body temperature 2019-12-10 02:51:13 36.39 Tracee Univ [facility] Branch Body height 2019-12-10 02:28:00 162.6 cm [facility] [place] [facility] Body weight 2019-12-10 02:28:00 104.327 kg [facility] BMI 2019-12-10 02:28:00 39.48 kg/m2 [facility] Heart Rate 2022-11-29 19:18:58 [facility] [place] Systolic (mm Hg) 2022-11-29 19:18:48 Jose Francisco rial Raul Diastolic (mm Hg) 2022-11-29 19:18:48 Mem orial [place]ul Heart Rate 2022-11-29 19:18:48 [facility] Temperature Oral (F) 2022-11-29 19:18:21 98.2 F [facility] Heart Rate 2022-11-29 13:36:55 [facility] [place] Systolic (mm Hg) 2022-11-29 13:36:27 Jose Francisco rial [place] Diastolic (mm Hg) 2022-11-29 13:36:27 Mem orial [place] Systolic (mm Hg) 2022-11-29 13:14:00 Jose Francisco rial Raul Diastolic (mm Hg) 2022-11-29 13:14:00 Mem orial Raul Respitory Rate 2022-11-29 10:05:34 Memori al [place] Temperature Oral (F) 2022-11-29 10:04:49 98.4 F [facility] [place] Respitory Rate 2022-11-29 05:37:05 Memori al [place] Temperature Oral (F) 2022-11-29 05:36:29 97.7 F [facility] [place] Temperature Oral (F) 2022-11-29 02:00:00 98 F [facility] [place] Respitory Rate 2022-11-28 20:51:03 Memori al [facility] Height 2022-11-28 19:03:00 4 [ft_i] [facility] Weight 2022-11-28 19:03:00 [facility] [place] Height 2022-11-27 14:13:00 149.86 cm [facility] [place] Weight 2022-11-27 14:13:00 [facility] [place] BMI Calculated 2022-11-27 14:13:00 Memori al [place] Height 2022-11-27 05:50:00 149.86 cm [facility] [place] BMI Calculated 2022-11-27 05:50:00 Memori al [place] Weight 2022-11-27 05:50:00 [facility] [place] Systolic (mm Hg) 2022-11-23 01:23:00 Jose Francisco rial [place] Diastolic (mm Hg) 2022-11-23 01:23:00 Mem orial [place] Respitory Rate 2022-11-23 01:23:00 Memori al [place] Respitory Rate 2022-11-22 22:30:00 Memori al [place] Systolic (mm Hg) 2022-11-22 22:30:00 Jose Francisco rial [place] Diastolic (mm Hg) 2022-11-22 22:30:00 Mem orial [place] Respitory Rate 2022-11-22 21:30:00 Memori al [place] Systolic (mm Hg) 2022-11-22 21:30:00 Jose Francisco [...] [facility] Heart Rate 2022-11-21 10:11:00 [facility] [place] Systolic (mm Hg) 2021-11-02 20:14:00 Jose Francisco rial [place] Diastolic (mm Hg) 2021-11-02 20:14:00 Mem orial [place] Heart Rate 2021-11-02 20:14:00 [facility] [place] Respitory Rate 2021-11-02 20:14:00 Memori al [place] Height 2021-11-02 20:14:00 149.86 cm [facility] Weight 2021-11-02 20:14:00 [facility] [place] BMI Calculated 2021-11-02 20:14:00 Memori [facility] [place] Systolic (mm Hg) 2020-12-24 18:59:00 Jose Francisco rial [place] Diastolic (mm Hg) 2020-12-24 18:59:00 Mem orial [place] Heart Rate 2020-12-24 18:59:00 [facility] Respitory Rate 2020-12-24 18:59:00 Memori al [place] Height 2020-12-24 18:59:00 149.86 cm [facility] Weight 2020-12-24 18:59:00 [facility] BMI Calculated 2020-12-24 18:59:00 Memori al [place] Systolic (mm Hg) 2020-09-06 20:47:00 Jose Francisco rial Raul Diastolic (mm Hg) 2020-09-06 20:47:00 Mem orial [place] Temperature Oral (F) 2020-09-06 18:26:00 99.7 F [facility] Heart Rate 2020-09-06 18:26:00 [facility] Respitory Rate 2020-09-06 18:26:00 Memori al [place] Systolic (mm Hg) 2020-09-06 18:26:00 Jose Francisco rial [place] Diastolic (mm Hg) 2020-09-06 18:26:00 Mem orial [place] Temperature Oral (F) 2020-09-06 14:09:00 98.1 F [facility] Heart Rate 2020-09-06 14:09:00 [facility] Respitory Rate 2020-09-06 14:09:00 Memori [facility] [place] Systolic (mm Hg) 2020-09-06 14:09:00 Jose Francisco rial [place] Diastolic (mm Hg) 2020-09-06 14:09:00 Mem orial [place] Temperature Oral (F) 2020-09-06 10:00:00 98.1 F [facility] [place] Heart Rate 2020-09-06 10:00:00 [facility] [place] Respitory Rate 2020-09-06 10:00:00 Memori al [place] Temperature Oral (F) 2020-09-06 06:30:00 97.5 F [facility] Heart Rate 2020-09-06 06:30:00 [facility] Respitory Rate 2020-09-06 06:30:00 Memori al [place] Systolic (mm Hg) 2020-09-06 06:30:00 Jose Francisco rial [place] Diastolic (mm Hg) 2020-09-06 06:30:00 Mem orial [place] Temperature Oral (F) 2020-09-06 02:45:00 97.8 F [facility] Heart Rate 2020-09-06 02:45:00 [facility] Respitory Rate 2020-09-06 02:45:00 Memori al [place] Systolic (mm Hg) 2020-09-06 02:45:00 Jose Francisco rial [place] Diastolic (mm Hg) 2020-09-06 02:45:00 Mem orial Raul Temperature Oral (F) 2020-09-05 22:00:00 97 F [facility] Heart Rate 2020-09-05 22:00:00 [facility] Respitory Rate 2020-09-05 22:00:00 Memori al [place] Systolic (mm Hg) 2020-09-05 22:00:00 Jose Francisco rial [place] Diastolic (mm Hg) 2020-09-05 22:00:00 Mem orial [place] Height 2020-09-05 02:46:00 124.46 cm [facility] [place] BMI Calculated 2020-09-05 02:46:00 Memori [facility] [place] Weight 2020-09-05 02:46:00 [facility] Systolic (mm Hg) 2020-05-25 18:41:00 Jose Francisco rial [place] Diastolic (mm Hg) 2020-05-25 18:41:00 Mem orial [facility] Heart Rate 2020-05-25 18:41:00 [facility] Respitory Rate 2020-05-25 18:41:00 Memori [facility] [place] Temperature Oral (F) 2020-05-25 18:41:00 98.6 F [facility] [place] Height 2020-05-25 18:41:00 149.86 cm [facility] Weight 2020-05-25 18:41:00 [facility] [place] BMI Calculated 2020-05-25 18:41:00 Memori [facility] [place] Systolic (mm Hg) 2020-03-24 14:12:00 Jose Francisco rial [place] Diastolic (mm Hg) 2020-03-24 14:12:00 Mem orial [place] Heart Rate 2020-03-24 14:12:00 [facility] Height 2020-03-24 14:12:00 149.86 cm [facility] [place] Weight 2020-03-24 14:12:00 [facility] [place] BMI Calculated 2020-03-24 14:12:00 Memori al [facility] Systolic (mm Hg) 2019-07-24 19:29:00 Jose Francisco rial Ra[facility] Diastolic (mm Hg) 2019-07-24 19:29:00 Mem orial [facility] Heart Rate 2019-07-24 19:29:00 [facility] [place] Respitory Rate 2019-07-24 19:29:00 Memori al [facility] Height 2019-07-24 19:29:00 149.86 cm [facility] Weight 2019-07-24 19:29:00 [facility] [place] BMI Calculated 2019-07-24 19:29:00 Memori [facility] [place] Systolic (mm Hg) 2019-05-21 19:25:00 Jose Francisco rial [place] Diastolic (mm Hg) 2019-05-21 19:25:00 Mem orial Ra[facility] Heart Rate 2019-05-21 19:25:00 [facility] [place] Respitory Rate 2019-05-21 19:25:00 Memori al Raul Height 2019-05-21 19:25:00 149.86 cm [facility] [place] Weight 2019-05-21 19:25:00 [facility] BMI Calculated 2019-05-21 19:25:00 Memori al [place] Height 2019-03-21 19:45:00 147.32 cm [facility] [place] Weight 2019-03-21 19:45:00 [facility] BMI Calculated 2019-03-21 19:45:00 Memori al [facility] Respitory Rate 2019-03-21 19:45:00 [facility] [place] Heart Rate 2019-03-21 19:45:00 [facility] [place] Systolic (mm Hg) 2019-03-21 19:45:00 Jose Francisco rial Raul Diastolic (mm Hg) 2019-03-21 19:45:00 Mem orial [place] Height 2019-02-21 20:01:00 149.86 cm [facility] [place] Weight 2019-02-21 20:01:00 [facility] BMI Calculated 2019-02-21 20:01:00 Memori al [facility] Respitory Rate 2019-02-21 20:01:00 Memori al [facility] Heart Rate 2019-02-21 20:01:00 [facility] [place] Systolic (mm Hg) 2019-02-21 20:01:00 Jose Francisco rial Ra[facility] Diastolic (mm Hg) 2019-02-21 20:01:00 Mem orial Ra[facility] Procedures Procedure Date / Time Performing Clinician Source Performed AUTHORIZATION FOR 2022-11-22 06:01:00 Doctor Unassigned, No Univ [facility] RELEASE OF PHI Name Medical Branch XR CHEST 1 VW 2022-08-05 17:51:10 Carly Sinclair [facility] TROPONIN I 2022-08-05 17:31:00 Carly Sinclair [facility] COMP. METABOLIC PANEL 2022-08-05 17:31:00 Carly Sinclair [facility] ([id number]) [facility] CBC WITH DIFF 2022-08-05 17:31:00 Carly Sinclair [facility] RAPID INFLUENZA A/B 2022-08-05 17:31:00 Carly Sinclair [facility] N-TERMINAL PRO-BNP 2022-08-05 17:31:00 Carly Sinclair [facility] COVID-19 (ID NOW RAPID 2022-08-05 17:31:00 Carly Sinclair Un [facility] TESTING) [facility] CONSENT/REFUSAL FOR 2022-08-05 17:11:04 [facility] XR FOREARM 2 VW RIGHT 2020-06-28 17:49:01 Sariah Miller [facility] XR SHOULDER 2+ VW RIGHT 2020-06-28 17:49:01 Sariah Miller [facility] CONSENT/REFUSAL FOR 2020-02-19 18:58:01 [facility] XR TIBIA FIBULA 2 VW 2019-12-10 03:20:47 Timi Aguirre [facility] Encounters Start End Encounter Admission Attending Care Care Encounter Source Date/Time Date/Time Type Type Clinicians Facility Department ID 2023-04-30 Outpatient [facility] [id number] Common 12:50:00 [id number] [facility] 2023-03-[address] [facility] [id number] [place] 09:56:10 [id number] [facility] 2022-11-[address] [facility] [id number] [place] 08:22:57 [id number] [facility] 2022-11-[address] [facility] [id number] [place] 15:23:09 [id number] [facility] 2022-11-13 [facility] [id number] Common 13:04:00 [id number] [facility] 2022-11-09 Outpatient [facility] [id number] Common 12:35:00 [id number] [facility] 2022-07-26 Outpatient STLML[facility] STL[facility]C [id number] Common 16:10:00 [id number] [facility] 2022-06-16 Outpatient STLMLC STLMLC [id number] Common 09:53:02 [id number] [facility] 2021-10-26 Outpatient STLMLC STL[facility]C [id number] Common 13:00:46 [id number] [facility] 2021-10-26 Outpatient STLMLC STLMLC [id number] Common 12:25:20 [id number] [facility] 2021-10-26 Outpatient STLMLC STLMLC [id number] Common 12:16:59 [id number] [facility] 2021-10-05 Inpatient FADUMO [facility] [id number] [facility] 11:00:00 Anurag Ferguson [facility] 2021-07-[address] [facility] [id number] Univers 19:46:17 [facility] 2021-07-[address] [facility] [id number] Univers 21:53:33 [facility] 2023-06-06 2023-06-06 Outpatient GC_GCBZW_Ka PRIV PRIV [id number] [facility] 00:00:00 00:00:00 diyala_S [id number] Medic al 2023-05-15 2023-05-15 Palliative [facility] [id number] LACXSUHJY [facility] 18:00:00 19:00:00 Care PANTOGRAPH TRANSFERRER/MD [place] [id number] [facility] Medical Follow Up [id number] 2023-04-30 2023-04-30 Outpatient GC_GCBZW_Ka PRIV PRIV [id number] [facility] 00:00:00 00:00:00 diyala_S [id number] Medic al 2023-04-30 2023-04-30 Outpatient GC_GCBZW_Ka PRIV PRIV [id number] [facility] 00:00:00 00:00:00 diyala_S [id number] Medic al 2023-04-30 2023-04-30 Outpatient GC_GCBZW_Ka PRIV PRIV [id number] [facility] 00:00:00 00:00:00 diyala_S [id number] Medic al 2023-04-25 2023-04-25 Outpatient GC_GCBZW_Ka PRIV PRIV [id number] [facility] 00:00:00 00:00:00 diyala_S [id number] Medic al 2023-04-25 2023-04-25 Outpatient GC_[facility]BZW_[facility] PRIV PRIV [id number] [facility] 00:00:00 00:00:00 diyala_S [id number] Medic al 2023-04-25 2023-04-25 Outpatient GC_[facility]BZW_[facility] PRIV PRIV [id number] [facility] 00:00:00 00:00:00 diyala_S [id number] Medic al 2023-04-18 2023-04-18 Outpatient GC_GCBZW_Ka PRIV PRIV [id number] [facility] 00:00:00 00:00:00 diyala_S [id number] Medic al 2023-03-14 2023-03-14 Care Glenys 2.16.840. 2.16.840.1. CLAC [id number] [facility] 21:00:00 21:15:00 Coordinati Foster 1.600200. 854529.4.6. R6K Medical on Non 4.6.99872 [id number] Billable 08134 2023-02-22 2023-02-22 Palliative Glenys 2.16.840. 2.16.840.1. C [id number] [facility] 17:30:00 18:30:00 Care Foster 1.881858. 992595.4.6. GFE Medical Follow Up 4.6.96728 [id number] 2023-02-14 2023-02-14 Outpatient FADUMO AndersonU SUGLavelle [id number] [facility] 08:00:00 09:00:[address] [place] [address] 2023-02-08 2023-02-08 [place] [id number] [facility] 00:00:00 00:00:00 0511 Medica l Group 2023-02-08 2023-02-08 Outpatient Deavers_C DMG DMG [id number] [facility] 00:00:00 00:00:00 0626 Medica l Group 2023-01-31 2023-01-31 ESTRELLA Cuellar 2.16.840. 2.16.840.1. CLA [id number] [facility] 19:00:00 20:00:00 Deavers 1.155234. 440232.4.6. WF9 [place] [id number] 2023-01-22 2023-01-22 [place] [id number] [facility] 00:00:00 00:00:00 0424 Medica l Group 2023-01-22 2023-01-22 [place] [id number] [facility] 00:00:00 00:00:00 0506 Medica l Group 2022-11-27 2022-11-[address] [facility] [id number] Memoria 05:48:00 21:37:[address] 2022-11-27 2022-11-[address] [facility] [id number] Memoria 05:48:00 21:37:[address] 2022-11-28 2022-11-29 Inpatient E AGUSTIN [facility] [id number] [facility] 15:38:00 15:37:00 EMMANUEL 2022-11-26 2022-11-29 Outpatient Agustin [facility] [id number] 23:48:00 15:37:00 Emmanuel 57 2022-11-26 2022-11-29 Outpatient Agustin [facility] [id number] 23:48:00 15:37:00 Emmanuel 57 2022-11-21 2022-11-[address] [facility] [id number] Memoria 10:09:00 20:23:[address] 2022-11-21 2022-11-[address] [facility] [id number] 10:09:00 20:23:00 n [place] 00 l [facility] 2022-11-21 2022-11-22 Outpatient E CESILIA, [facility] [id number] [facility] 08:46:00 14:23:00 PEREZ 2022-11-21 2022-11-22 Outpatient Cesilia, [facility] [id number] 04:09:00 14:23:00 Perez Lemus 2022-11-21 2022-11-22 Outpatient Cesilia, [facility] [id number] 04:09:00 14:23:00 Perez Lemus 2022-11-22 2022-11-22 Orders Doctor STEFANO 1.2.840.114 [id number] Univers 00:00:00 00:00:00 Only Unassigned, TRU 350.1.13.10 ity of [place] [facility] 4.2.7.2.686 Carlos as [id number] [place] [address] [place] 2022-11-01 2022-11-01 [facility]TEL[facility] [id number] Co mmon 00:00:00 00:00:00 [facility] 2022-09-29 2022-09-29 Inpatient KAYCEE AndersonWU SUG [id number] [facility] 11:00:00 11:00:[address] [place] [address] 2022-09-13 2022-09-13 ESTRELLA Dinh 2.16.840. 2.16.840.1. MESFIN [id number] [facility] 20:30:00 21:00:00 Revisit: Valentín 1.718727. 093090.4.6. 2H3 Medical Gap 4.6.22841 [id number] Closure & 03339 Clinical Check-in 2022-09-05 2022-09-05 (TEL) STLC STLC [id number] Co mmon 00:00:00 00:00:00 [facility] 2022-08-05 2022-08-05 Emergency X YAHIR, [facility] ERT [id number] Univers 12:20:00 15:34:00 CARLY ity [facility] 2022-08-05 2022-08-05 Emergency [facility] 1.2.840.114 [id number] [facility] 12:20:00 15:34:00 Carly [facility]13.10 [facility] 4[facility]2.7[facility]686 [facility] [id number] [place] [address] [place] 2022-08-03 2022-08-03 Outpatient Canales_M DMG DMG [id number] -2021 [facility] 00:00:00 00:00:00 1103 Medica l Group 2022-07-27 2022-07-27 OFFICE STLMLC STLMLC [id number] Co mmon 00:00:00 00:00:00 VISIT Spirit ESTAB PT - CHI LEVEL 4 [facility] 2022-06-15 2022-06-15 OFFICE STLMLC STLMLC [id number] Co mmon 00:00:00 00:00:00 VISIT Spirit ESTAB PT - CHI LEVEL 4 [facility] 2022-06-12 2022-06-12 CAV Allegra 2.16.840. 2.16.840.1. CLAC [id number] [facility] 20:00:00 21:00:00 Valentín 1.288293. 143046.4.6. FE5 [facility] 4.6.97868 [id number] 2022-04-28 2022-04-28 Ambulatory nullFlavo MNA [id number] Memoria 19:00:00 19:00:00 Pre-Reg r Neurology 14 l Lana Carter 2022-04-28 2022-04-28 Ambulatory nullFlavo MNA [id number] Memoria 19:00:00 19:00:00 Pre-Reg r Neurology 14 l Lana Carter 2022-04-28 2022-04-28 Outpatient FRANCESCO MAYA [id number] Memoria 14:00:00 14:00:00 14 l Raul 2022-04-28 2022-04-28 Outpatient YURIDIA Garcia [id number] 14:00:00 14:00:00 Jeffrey Shafer 2022-04-14 2022-04-14 Outpatient Canales_M DMG DMG [id number] -2021 [facility] 07:15:00 07:15:00 0715 Medica l Group 2021-12-15 2021-12-15 (TEL) STLMLC STLMLC [id number] Co mmon 00:00:00 00:00:00 [facility] 2021-12-08 2021-12-08 (TEL) STLMLC STLMLC [id number] Co mmon 00:00:00 00:00:00 [facility] 2021-11-29 2021-11-29 OL DIG E/M STLMLC STLMLC [id number] Common 00:00:00 00:00:00 SVC 5-10 Spiri t [facility] 2021-11-21 2021-11-21 (TEL) STLMLC STLMLC [id number] Co mmon 00:00:00 00:00:00 [facility] 2021-11-02 2021-11-03 Outpatient nullFlavo MNA [id number] Memoria 19:30:00 05:59:59 r Neurology 13 l Stearns Raul 2021-11-02 2021-11-03 Outpatient nullFlavo MNA [id number] Memoria 19:30:00 05:59:59 r Neurology 13 l Ste[place] 2021-11-02 2021-11-02 Outpatient [facility]IDIA [facility] [id number] 13:30:00 23:59:59 Jeffrey 13 [place] 2021-11-02 2021-11-02 Ambulatory nullFlavo MNA [id number] Memoria 19:00:00 19:00:00 Pre-Reg r Neurology 12 l Stearns [place] 2021-11-02 2021-11-02 Ambulatory nullFlavo MNA [id number] Memoria 19:00:00 19:00:00 Pre-Reg r Neurology 12 l Lana Carter 2021-11-02 2021-11-02 Outpatient MHIE LY [id number] Memoria 13:30:00 13:30:00 13 lavelle Carter 2021-11-02 2021-11-02 Outpatient IE LY [id number] Memoria 13:00:00 13:00:00 12 lavelle Carter 2021-11-02 2021-11-02 Outpatient YURIDIA Garcia ROSELYN [id number] 13:00:00 13:00:00 Jeffreyfrancisco Shafer 2021-10-26 2021-10-26 (TEL) STLMLC STLMLC [id number] Co mmon 00:00:00 00:00:00 Spirit - [facility] 2021-10-17 2021-10-17 OFFICE STLMLC STLC [id number] Co mmon 00:00:00 00:00:00 VISIT Spirit ESTAB PT - CHI LEVEL 4 [facility] 2021-10-03 2021-10-03 CAV Allegra 2.16.840. 2.16.840.1. CLAC [id number] [facility] 20:00:00 21:30:00 Valentín 1.687354. 328257.4.6. R Medical 4.6.52523 [id number] 2021-08-29 2021-08-29 Outpatient Canales_M DMG DMG [id number] -2020 [facility] 12:42:00 12:42:00 1129 Medica l Group 2021-06-28 2021-06-28 Ambulatory nullFlavo MNA [id number] Memoria 19:00:00 19:00:00 Pre-Reg r Neurology 11 l Lana Carter 2021-06-28 2021-06-28 Ambulatory nullFlavo MNA [id number] Memoria 19:00:00 19:00:00 Pre-Reg r Neurology 11 l Lana Carter 2021-06-28 2021-06-28 Outpatient FRANCESCO MAYA [id number] Memoria 14:00:00 14:00:00 11 lavelle Carter 2021-06-28 2021-06-28 Outpatient YURIDIA Garcia ROSELYN [id number] 14:00:00 14:00:00 Jeffrey Shafer 2021-05-16 2021-05-16 Outpatient STLMLC STLMLC [id number] Common 00:00:00 00:00:00 [facility] 2021-05-10 2021-05-10 Outpatient STLMLC STLC [id number] Common 00:00:00 00:00:00 [facility] 2021-04-12 2021-04-12 Outpatient STLMLC STLMLC [id number] Common 00:00:00 00:00:00 [facility] 2021-03-28 2021-03-28 [id number] [facility] 05:32:00 05:32:00 _A_AH 48572 Family Practic e 2021-03-28 2021-03-28 (TEL) STLMLC STLMLC [id number] Co mmon 00:00:00 00:00:00 [facility] 2021-03-07 2021-03-07 Outpatient STLMLC STLMLC [id number] Common 00:00:00 00:00:00 [facility] 2021-02-08 2021-02-08 Outpatient STLMLC STLMLC [id number] Common 00:00:00 00:00:00 [facility] 2021-01-28 2021-01-30 Outside nullFlavo MNA [id number] Memoria 14:05:24 04:59:59 Medical r [facility] 2021-01-28 2021-01-30 Outside nullFlavo MNA [id number] Memoria 14:05:24 04:59:59 Medical r Neurology 01 l Records Lana Cunhaann 2021-01-28 2021-01-29 Outpatient MHMISCHER MHMISCHER [id number] 09:05:24 23:59:59 01 2021-01-18 2021-01-18 Outpatient Olivia-Echoo VFP VF 793 [facility]202 [facility] 01:43:00 01:43:00 _A_AH 35048 Family Practic e 2021-01-14 2021-01-14 Outpatient Solitairo_Keesha SILVA [id number] -2020 [facility] 05:20:00 05:20:00 0416 Medica l Group 2021-01-14 2021-01-14 Caitlyn BAEZA MA - [id number] D evoted 00:00:00 00:00:00 Radha Jerez, Health Group PANTOGRAPH TRANSFERRER: 16[address] [facility] [address], [address], [place] [address] , Ph. 2021-01-14 2021-01-14 Outpatient Jerez, DMG DMG [id number] 00:00:00 00:00:00 Caitlyn [id number] Radha [id number] 2021-01-13 2021-01-13 [place] [id number] -2020 [facility] 05:35:00 05:35:00 0415 Medica l Group 2021-01-12 2021-01-12 [place] [id number] -2020 [facility] 04:16:00 04:16:00 0414 Medica l Group 2020-12-24 2020-12-25 Outpatient nullFlavo MNA [id number] Memoria 18:45:00 04:59:59 r Neurology 10 l Lana Carter 2020-12-24 2020-12-25 Outpatient nullFlavo MNA [id number] Memoria 18:45:00 04:59:59 r Neurology 10 l Lana Carter 2020-12-24 2020-12-24 Outpatient PRUDENCIO GarciaMISCHANJEL MHMISCHER [id number] 13:45:00 23:59:59 Jeffrey 10 [place] 2020-12-24 2020-12-24 Outpatient MHIE MHIE [id number] Memoria 13:45:00 13:45:00 10 l Raul 2020-12-09 2020-12-09 Outpatient STLMLC STLMLC [id number] Common 00:00:00 00:00:00 [facility] 2020-12-09 2020-12-09 Outpatient STLMLC STLMLC [id number] Common 00:00:00 00:00:00 [facility] 2020-11-30 2020-11-30 Outpatient STLMLC STLMLC [id number] Common 00:00:00 00:00:00 [facility] 2020-11-23 2020-11-25 Outside nullFlavo MNA [id number] Memoria 17:49:36 05:59:59 Medical r Neurology 00 l Records Lana Carter 2020-11-23 2020-11-25 Outside nullFlavo MNA [id number] Memoria 17:49:36 05:59:59 Medical r Neurology 00 l Records Lana Carter 2020-11-23 2020-11-24 Outpatient MHMISCHER MHMISCHER [id number] 11:49:36 23:59:59 00 2020-10-28 2020-10-28 Outpatient STLMLC STLMLC [id number] Common 00:00:00 00:00:00 [facility] 2020-10-25 2020-10-25 Outpatient STLMLC STLMLC [id number] Common 00:00:00 00:00:00 [facility] 2020-10-11 2020-10-11 Ambulatory nullFlavo MNA [id number] Memoria 21:15:00 21:15:00 Pre-Reg r Neurology 09 l [place]s [place] 2020-10-11 2020-10-11 Ambulatory nullFlavo MNA [id number] Memoria 21:15:00 21:15:00 Pre-Reg r Neurology 09 l Stearns [place] 2020-10-11 2020-10-11 Outpatient MHIE MHIE [id number] Memoria 15:15:00 15:15:00 09 l [place] 2020-10-11 2020-10-11 Outpatient Jose [facility]ER [id number] 15:15:00 15:15:00 Jeffrey Daya Holl[place] 2020-09-29 2020-09-29 Outpatient [facility] [id number] Common 00:00:00 00:00:00 [facility] 2020-09-05 2020-09-06 Observatio nullFlavo [facility] [id number] Memoria 02:36:00 21:43:00 sherif Carter 40 [facility] 2020-09-05 2020-09-06 Observatio nullFlavo [facility] [id number] Memoria 02:36:00 21:43:00 sherif Carter 40 [facility] 2020-09-04 2020-09-06 Outpatient Nae [facility] [id number] 20:36:00 15:43:00 Vincent Sage 2020-09-04 2020-09-04 Outpatient Nae [facility] [id number] 20:36:00 20:36:00 Vincent Sage 2020-08-24 2020-08-24 Ambulatory nullFlavo MNA [id number] Memoria 19:15:00 19:15:00 Pre-Reg r Neurology 08 l Stearns [place] 2020-08-24 2020-08-24 Ambulatory nullFlavo MNA [id number] Memoria 19:15:00 19:15:00 Pre-Reg r Neurology 08 l Lana Carter 2020-08-24 2020-08-24 Outpatient MHIE MHIE [id number] Memoria 13:15:00 13:15:00 08 lavelle Raul 2020-08-24 2020-08-24 Outpatient GOSIA GarciaSCHANJEL MHMISCHER [id number] 13:15:00 13:15:00 Jeffrey 08 [facility] 2020-06-28 2020-06-28 Emergency [place], [facility] [id number] 11:51:00 15:02:00 Sariah S [place] 350.1.13.10 [place] 4.2.7.2.686 [place] [id number] [facility] 2020-06-28 2020-06-28 Emergency [place], [facility] [id number] [facility] 11:51:00 15:02:00 Sariah S [place] 350.1.13.10 i ty of [place] 4.2.7.2.686 [facility] [id number] [address] 2020-05-25 2020-05-26 Outpatient nullFlavo MNA [id number] Memoria 18:45:00 04:59:59 r Neurology 07 l Stearns [place] 2020-05-25 2020-05-26 Outpatient nullFlavo MNA [id number] Memoria 18:45:00 04:59:59 r Neurology 07 l Stearns Raul 2020-05-25 2020-05-25 Outpatient PRUDENCIO GarciaMISCHER MHMISCHER [id number] 13:45:00 23:59:59 Jeffrey Mariam [place] 2020-05-25 2020-05-25 Outpatient MHIE MHIE [id number] Memoria 13:45:00 13:45:00 07 lavelle [place] 2020-03-30 2020-03-30 Ambulatory nullFlavo MNA [id number] Memoria 20:15:00 20:15:00 Pre-Reg r Neurology 05 l Lana [place] 2020-03-30 2020-03-30 Ambulatory nullFlavo MNA [id number] Memoria 20:15:00 20:15:00 Pre-Reg r Neurology 05 l Lana [place] 2020-03-30 2020-03-30 Outpatient MHIE MHIE [id number] Memoria 15:15:00 15:15:00 05 l [place] 2020-03-30 2020-03-30 Outpatient Kretea, MHMISCHER MHMISCHER [id number] 15:15:00 15:15:00 Jeffrey 05 [place] 2020-03-24 2020-03-25 Outpatient nullFlavo MNA [id number] Memoria 14:00:00 04:59:59 r Neurology 06 l Lana [place] 2020-03-24 2020-03-25 Outpatient nullFlavo MNA [id number] Memoria 14:00:00 04:59:59 r Neurology 06 l Stearns [place] 2020-03-24 2020-03-24 Outpatient Jose, MHMISCHER MHMISCHER [id number] 09:00:00 23:59:59 Jeffrey Norma Shafer 2020-03-24 2020-03-24 Outpatient MHIE MHIE [id number] Memoria 09:00:00 09:00:00 06 lavelle [place] 2020-02-19 2020-02-19 Emergency [place], [facility] [id number] 14:18:56 16:04:00 Maria Luisa Amin 350.1.13.[address] [place] [address] [place] [address] [id number] [facility] 2020-02-19 2020-02-19 Emergency [place], [facility] [id number] [facility] 14:18:56 16:04:00 Maria Luisa Amin 350.1.13.10 ity [facility] 4.2.7.2.686 [facility] [id number] [address] 2019-12-11 2019-12-11 Outpatient Olivia-[facility] [address] [place] [address] 06:48:00 06:48:00 _A_AH 89947 Family Practic e 2019-12-11 2019-12-11 Outpatient Olivia-Mbayo VFP VFP [id number] [facility] 06:48:00 06:48:00 _A_AH 16837 Family Practic e 2019-12-09 2019-12-10 Emergency [facility] [id number] 21:28:34 00:05:00 Timi Amin 350.1.13.10 [place] 4.2.7.2.686 [place] [id number] [facility] 2019-12-09 2019-12-10 Emergency [facility] [id number] Univers 21:28:34 00:05:00 Timi Amin 350.1.13.10 i ty of [place] 4.2.7.2.686 [facility] [id number] [place] [address] [place] 2019-12-09 2019-12-10 Emergency X [facility] ERT [id number] Univers 21:28:34 00:05:00 TIMI dominique [facility] 2019-11-19 2019-11-19 Outpatient Olivia-Echoo [facility] [id number] [facility] 07:16:00 07:16:00 _A_AH 55126 Family Practic e 2019-09-16 2019-09-16 Ambulatory nullFlavo MNA [id number] Memoria 21:00:00 21:00:00 Pre-Reg r Neurology 04 l Lana Carter 2019-09-16 2019-09-16 Ambulatory nullFlavo MNA [id number] Memoria 21:00:00 21:00:00 Pre-Reg r Neurology 04 l Lana Carter 2019-09-16 2019-09-16 Outpatient MHIE MHIE [id number] Memoria 15:00:00 15:00:00 Sonia Carter 2019-09-16 2019-09-16 Outpatient YURIDIA GarciaSCHANJEL [id number] 15:00:00 15:00:00 Jeffrey Shafer 2019-07-24 2019-07-25 Outpatient nullFlavo MNA [id number] Memoria 19:15:00 04:59:59 r Neurology 03 lavelle Carter 2019-07-24 2019-07-25 Outpatient nullFlavo MNA [id number] Memoria 19:15:00 04:59:59 r Neurology 03 lavelle Carter 2019-07-24 2019-07-24 Outpatient [facility] [id number] 14:15:00 23:59:59 Jeffrey 03 [place] 2019-07-24 2019-07-24 Outpatient MHIE MHIE [id number] Memoria 14:15:00 14:15:00 03 lavelle Raul 2019-05-21 2019-05-22 Outpatient nullFlavo MNA [id number] Memoria 19:30:00 04:59:59 r Neurology 02 l Lana [place] 2019-05-21 2019-05-22 Outpatient nullFlavo MNA [id number] Memoria 19:30:00 04:59:59 r Neurology 02 l Lana [place] 2019-05-21 2019-05-21 Outpatient [facility] [id number] 14:30:00 23:59:59 Jeffrey 02 [place] 2019-05-21 2019-05-21 Outpatient MHIE MHIE [id number] Memoria 14:30:00 14:30:00 02 lavelle [place] 2019-03-21 2019-03-22 Outpatient nullFlavo MNA [id number] Memoria 19:30:00 04:59:59 r Neurology 01 lavelle Schwartz Raul 2019-03-21 2019-03-22 Outpatient nullFlavo MNA [id number] Memoria 19:30:00 04:59:59 r Neurology 01 lavelle Schwartz [place] 2019-03-21 2019-03-21 Outpatient Jose [facility] [id number] 14:30:00 23:59:59 Jeffrey 01 [place] 2019-03-21 2019-03-21 Outpatient MHIE MHIE [id number] Memoria 14:30:00 14:30:00 01 lavelle Carter 2019-02-21 2019-02-22 Outpatient nullFlavo MNA [id number] Memoria 20:00:00 04:59:59 r Neurology 00 l Lana [place] 2019-02-21 2019-02-22 Outpatient nullFlavo MNA [id number] Memoria 20:00:00 04:59:59 r Neurology 00 l Lana Cunhaann 2019-02-21 2019-02-21 Outpatient Jose SAMSCHER [facility] [id number] 15:00:00 23:59:59 Jeffrey 00 [place] Results Test Description Test Time Test Comments Results Result Comments Source HEMATOLOGY 2022-11-28 09:49:00 Test Item Value Reference Range Interpretation Comme nts Basophils (test code = 0.7 See_Comment [Aut omated message] The system Basophils) which generated this result transmitted ref erence range: <=1.0. The reference r christiano was not used to interpret this result as normal/abnormal . [id number] 09:49:00 Test Item Value Reference Range Interpretation Comments Neutrophils # (test code = Neutrophils 3.0 1.5-8.1 #) [place] 391173-02-28 09:49:00 Test Item Value Reference Range Interpretation Comments Lymphocytes # (test code = Lymphocytes 2.0 1.0-5.5 #) [id number] 09:49:00 Test Item Value Reference Range Interpretation Comments Monocytes # (test code 0.7 See_Comment [Aut omated message] The = Monocytes #) system which generated this result tra nsmitted reference range : <=0.8. The reference r christiano was not used to int erpret this result as normal/abnormal . [place] 391173-02-28 09:49:00 Test Item Value Reference Range Interpretation Comments Eosinophils # (test code 0.4 See_Comment [A utomated message] The = Eosinophils #) system whic h generated this result tra nsmitted reference range : <=0.5. The reference r christiano was not used to int erpret this result as normal/abnormal . [facility] McAllenSjujnukDYSWXOLPTB9156-11-30 09:49:00 Test Item Value Reference Range Interpretation Comments WBC (test code = WBC) 6.2 3.7-10.4 [place] 391173-02-28 09:49:00 Test Item Value Reference Range Interpretation Comments RBC (test code = RBC) 3.06 4.20-5.40 [place] [address]-02-28 09:49:00 Test Item Value Reference Range Interpretation Comments Hgb (test code = Hgb) 9.2 12.0-16.[address]28 09:49:00 Test Item Value Reference Range Interpretation Comments Hct (test code = Hct) 28.0 36.0-48.0 [place] 391173-02-28 09:49:00 Test Item Value Reference Range Interpretation Comments MCV (test code = MCV) 91.5 80.0-98.0 [place] 391173-02-28 09:49:00 Test Item Value Reference Range Interpretation Comments MCH (test code = MCH) 30.0 pg 27.0-31.0 [place] 391173-02-28 09:49:00 Test Item Value Reference Range Interpretation Comments MCHC (test code = MCHC) 32.7 32.0-36.0 [place] 391173-02-28 09:49:00 Test Item Value Reference Range Interpretation Comments RDW (test code = RDW) 14.1 11.5-14.5 [place] 391173-02-28 09:49:00 Test Item Value Reference Range Interpretation Comments Platelet (test code = Platelet) 136 133-450 [id number] 09:49:00 Test Item Value Reference Range Interpretation Comments MPV (test code = MPV) 7.7 7.4-10.4 [place] 391173-02-28 09:49:00 Test Item Value Reference Range Interpretation Comments Segs (test code = Segs) 49.2 45.0-75.0 [place] 391173-02-28 09:49:00 Test Item Value Reference Range Interpretation Comments Lymphocytes (test code = Lymphocytes) 33.0 20.0-40.0 [place] 391173-02-28 09:49:00 Test Item Value Reference Range Interpretation Comments Monocytes (test code = Monocytes) 10.5 2.0-12.0 [place] [address]-02-28 09:49:00 Test Item Value Reference Range Interpretation Comments Eosinophils (test code = 6.6 See_Comment [A utomated message] The Eosinophils) system which ge nerated this result tra nsmitted reference range : <=4.0. The reference r christiano was not used to int erpret this result as normal/abnormal . [place] 391173-02-28 09:49:00 Test Item Value Reference Range Interpretation Comments Basophils (test code = 0.7 See_Comment [Aut omated message] The Basophils) system which ge nerated this result tra nsmitted reference range : <=1.0. The reference r christiano was not used to int erpret this result as normal/abnormal . [place] 391173-02-28 09:49:00 Test Item Value Reference Range Interpretation Comments Neutrophils # (test code = Neutrophils 3.0 1.5-8.1 #) [place] 391173-02-28 09:49:00 Test Item Value Reference Range Interpretation Comments Lymphocytes # (test code = Lymphocytes 2.0 1.0-5.5 #) [place] 391173-02-28 09:49:00 Test Item Value Reference Range Interpretation Comments Monocytes # (test code 0.7 See_Comment [Aut omated message] The = Monocytes #) system which generated this result tra nsmitted reference range : <=0.8. The reference r christiano was not used to int erpret this result as normal/abnormal . [place] 391173-02-28 09:49:00 Test Item Value Reference Range Interpretation Comments Eosinophils # (test code 0.4 See_Comment [A utomated message] The = Eosinophils #) system whic h generated this result tra nsmitted reference range : <=0.5. The reference r christiano was not used to int erpret this result as normal/abnormal . [id number] Test Item Value Reference Range Interpretation Comments WBC (test code = WBC) 6.2 3.7-10.4 [place] [id number] 09:49:00 Test Item Value Reference Range Interpretation Comments RBC (test code = RBC) 3.06 4.20-5.40 [place] 28462-02-28 09:49:00 Test Item Value Reference Range Interpretation Comments Hgb (test code = Hgb) 9.2 12.0-16.0 [place] 28462-02-28 09:49:00 Test Item Value Reference Range Interpretation Comments Hct (test code = Hct) 28.0 36.0-48.0 [place] 28462-02-28 09:49:00 Test Item Value Reference Range Interpretation Comments MCV (test code = MCV) 91.5 80.0-98.0 [place] 28462-02-28 09:49:00 Test Item Value Reference Range Interpretation Comments MCH (test code = MCH) 30.0 pg 27.0-31.0 [place] [id number] 09:49:00 Test Item Value Reference Range Interpretation Comments MCHC (test code = MCHC) 32.7 32.0-36.0 [place] 28462-02-28 09:49:00 Test Item Value Reference Range Interpretation Comments RDW (test code = RDW) 14.1 11.5-14.5 [place] 28462-02-28 09:49:00 Test Item Value Reference Range Interpretation Comments Platelet (test code = Platelet) 136 133-450 [place] 28462-02-28 09:49:00 Test Item Value Reference Range Interpretation Comments MPV (test code = MPV) 7.7 7.4-10.4 [place] [id number] 09:49:00 Test Item Value Reference Range Interpretation Comments Glucose Lvl (test code = Glucose Lvl) 93 70-99 [place] [id number] 09:49:00 Test Item Value Reference Range Interpretation Comments BUN (test code = BUN) 30 7-22 [place] [id number] 09:49:00 Test Item Value Reference Range Interpretation Comments Creatinine Lvl (test code = Creatinine 2.50 0.50-1.40 Lvl) [place] 468413-02-28 09:49:00 Test Item Value Reference Range Interpretation Comments Sodium Lvl (test code = Sodium Lvl) 138 135-145 [place] 468413-02-28 09:49:00 Test Item Value Reference Range Interpretation Comments Potassium Lvl (test code = Potassium 5.1 3.5-5.1 Lvl) [place] 468413-02-28 09:49:00 Test Item Value Reference Range Interpretation Comments Chloride Lvl (test code = Chloride Lvl) 108 95-109 [place] 468413-02-28 09:49:00 Test Item Value Reference Range Interpretation Comments CO2 (test code = CO2) 30 24-32 [place] 468413-02-28 09:49:00 Test Item Value Reference Range Interpretation Comments Calcium Lvl (test code = Calcium Lvl) 8.0 8.5-10.5 [facility]2023-02-28 09:49:00 Test Item Value Reference Range Interpretation Comments AGAP (test code = AGAP) 5.1 10.0-20.0 [facility]2023-02-28 09:49:00 Test Item Value Reference Range Interpretation Comments eGFR (test code = eGFR) 19 [place] 647753-02-28 09:49:00 Test Item Value Reference Range Interpretation Comments Glucose Lvl (test code = Glucose Lvl) 93 70-99 [place] [address]-02-28 09:49:00 Test Item Value Reference Range Interpretation Comments BUN (test code = BUN) 30 7-22 [facility]gtgyyLOHPHQCOK9973-69-38 09:49:00 Test Item Value Reference Range Interpretation Comments Creatinine Lvl (test code = Creatinine 2.50 0.50-1.40 Lvl) [place] 647753-02-28 09:49:00 Test Item Value Reference Range Interpretation Comments Sodium Lvl (test code = Sodium Lvl) 138 135-145 [facility]bergCovmujgBBGGKFSZQ2744-17-24 09:49:00 Test Item Value Reference Range Interpretation Comments Potassium Lvl (test code = Potassium 5.1 3.5-5.1 Lvl) [facility]bergEvaljkzUOHMEAQPX0371-22-56 09:49:00 Test Item Value Reference Range Interpretation Comments Chloride Lvl (test code = Chloride Lvl) 108 95-109 [facility]bergQieinhjBFVBDREOD8224-20-83 09:49:00 Test Item Value Reference Range Interpretation Comments CO2 (test code = CO2) 30 24-32 [place] 647753-02-28 09:49:00 Test Item Value Reference Range Interpretation Comments Calcium Lvl (test code = Calcium Lvl) 8.0 8.5-10.5 [facility]bergAtpziuvIZIQQGXKG2576-21-08 09:49:00 Test Item Value Reference Range Interpretation Comments AGAP (test code = AGAP) 5.1 10.0-20.0 [facility]bergQxijortNBFBRZYTO7720-83-51 09:49:00 Test Item Value Reference Range Interpretation Comments eGFR (test code = eGFR) 19 [facility]EmembfrTSRCRRUNNU7389-30-50 09:49:00 Test Item Value Reference Range Interpretation Comments Segs (test code = Segs) 49.2 45.0-75.0 [place] [address]-02-28 09:49:00 Test Item Value Reference Range Interpretation Comments Lymphocytes (test code = Lymphocytes) 33.0 20.0-40.0 [place] [address]-02-28 09:49:00 Test Item Value Reference Range Interpretation Comments Monocytes (test code = Monocytes) 10.5 2.0-12.0 [place] [address]-02-28 09:49:00 Test Item Value Reference Range Interpretation Comments Eosinophils (test code = 6.6 See_Comment [A utomated message] The Eosinophils) system which ge nerated this result tra nsmitted reference range : <=4.0. The reference r christiano was not used to int erpret this result as normal/abnormal . [place] [address]-02-28 09:49:00 Test Item Value Reference Range Interpretation Comments Basophils (test code = 0.7 See_Comment [Aut omated message] The Basophils) system which ge nerated this result tra nsmitted reference range : <=1.0. The reference r christiano was not used to int erpret this result as normal/abnormal . [place] 391173-02-28 09:49:00 Test Item Value Reference Range Interpretation Comments Neutrophils # (test code = Neutrophils 3.0 1.5-8.1 #) [place] [address]-02-28 09:49:00 Test Item Value Reference Range Interpretation Comments Lymphocytes # (test code = Lymphocytes 2.0 1.0-5.5 #) [place] [address]-02-28 09:49:00 Test Item Value Reference Range Interpretation Comments Monocytes # (test code 0.7 See_Comment [Aut omated message] The = Monocytes #) system which generated this result tra nsmitted reference range : <=0.8. The reference r christiano was not used to int erpret this result as normal/abnormal . [place] 391173-02-28 09:49:00 Test Item Value Reference Range Interpretation Comments Eosinophils # (test code 0.4 See_Comment [A utomated message] The = Eosinophils #) system wh h generated this result tra nsmitted reference range : <=0.5. The reference r christiano was not used to int erpret this result as normal/abnormal . [place] 391173-02-28 09:49:00 Test Item Value Reference Range Interpretation Comments WBC (test code = WBC) 6.2 3.7-10.4 [place] 391173-02-28 09:49:00 Test Item Value Reference Range Interpretation Comments RBC (test code = RBC) 3.06 4.20-5.40 [place] [address]-02-28 09:49:00 Test Item Value Reference Range Interpretation Comments Hgb (test code = Hgb) 9.2 12.0-16.0 [place] [address]-02-28 09:49:00 Test Item Value Reference Range Interpretation Comments Hct (test code = Hct) 28.0 36.0-48.0 [place] [address]-02-28 09:49:00 Test Item Value Reference Range Interpretation Comments MCV (test code = MCV) 91.5 80.0-98.0 [place] 391173-02-28 09:49:00 Test Item Value Reference Range Interpretation Comments MCH (test code = MCH) 30.0 pg 27.0-31.0 [place] 391173-02-28 09:49:00 Test Item Value Reference Range Interpretation Comments MCHC (test code = MCHC) 32.7 32.0-36.0 [place] 391173-02-28 09:49:00 Test Item Value Reference Range Interpretation Comments RDW (test code = RDW) 14.1 11.5-14.5 [place] 391173-02-28 09:49:00 Test Item Value Reference Range Interpretation Comments Platelet (test code = Platelet) 136 133-450 [place] 391173-02-28 09:49:00 Test Item Value Reference Range Interpretation Comments MPV (test code = MPV) 7.7 7.4-10.4 [place] [address]-02-28 09:49:00 Test Item Value Reference Range Interpretation Comments Segs (test code = Segs) 49.2 45.0-75.0 [place] [address]-02-28 09:49:00 Test Item Value Reference Range Interpretation Comments Lymphocytes (test code = Lymphocytes) 33.0 20.0-40.0 [place] 391173-02-28 09:49:00 Test Item Value Reference Range Interpretation Comments Monocytes (test code = Monocytes) 10.5 2.0-12.0 [place] 391173-02-28 09:49:00 Test Item Value Reference Range Interpretation Comments Eosinophils (test code = 6.6 See_Comment [A utomated message] The Eosinophils) system which ge nerated this result tra nsmitted reference range : <=4.0. The reference r christiano was not used to int erpret this result as normal/abnormal . [place] 391173-02-28 09:49:00 Test Item Value Reference Range Interpretation Comments Basophils (test code = 0.7 See_Comment [Aut omated message] The Basophils) system which ge nerated this result tra nsmitted reference range : <=1.0. The reference r christiano was not used to int erpret this result as normal/abnormal . [facility]AllenLrqxonqHIHAYWSWUG8615-43-02 09:49:00 Test Item Value Reference Range Interpretation Comments Neutrophils # (test code = Neutrophils 3.0 1.5-8.1 #) [place] 391173-02-28 09:49:00 Test Item Value Reference Range Interpretation Comments Lymphocytes # (test code = Lymphocytes 2.0 1.0-5.5 #) [place] 391173-02-28 09:49:00 Test Item Value Reference Range Interpretation Comments Monocytes # (test code 0.7 See_Comment [Aut omated message] The = Monocytes #) system which generated this result tra nsmitted reference range : <=0.8. The reference r christiano was not used to int erpret this result as normal/abnormal . [place] 391173-02-28 09:49:00 Test Item Value Reference Range Interpretation Comments Eosinophils # (test code 0.4 See_Comment [A utomated message] The = Eosinophils #) system whic h generated this result tra nsmitted reference range : <=0.5. The reference r christiano was not used to int erpret this result as normal/abnormal . [facility]AllenEfgqubjQFMTFEAQQH9479-50-24 09:49:00 Test Item Value Reference Range Interpretation Comments WBC (test code = WBC) 6.2 3.7-10.4 [place] [address]-02-28 09:49:00 Test Item Value Reference Range Interpretation Comments RBC (test code = RBC) 3.06 4.20-5.40 [place] [address]-02-28 09:49:00 Test Item Value Reference Range Interpretation Comments Hgb (test code = Hgb) 9.2 12.0-16.0 [place] [address]-02-28 09:49:00 Test Item Value Reference Range Interpretation Comments Hct (test code = Hct) 28.0 36.0-48.0 [place] [address]-02-28 09:49:00 Test Item Value Reference Range Interpretation Comments MCV (test code = MCV) 91.5 80.0-98.0 [place] [address]-02-28 09:49:00 Test Item Value Reference Range Interpretation Comments MCH (test code = MCH) 30.0 pg 27.0-31.0 [place] [address]-02-28 09:49:00 Test Item Value Reference Range Interpretation Comments MCHC (test code = MCHC) 32.7 32.0-36.0 [place] [address]-02-28 09:49:00 Test Item Value Reference Range Interpretation Comments RDW (test code = RDW) 14.1 11.5-14.5 [place] [address]-02-28 09:49:00 Test Item Value Reference Range Interpretation Comments Platelet (test code = Platelet) 136 133-450 [place] [address]-02-28 09:49:00 Test Item Value Reference Range Interpretation Comments MPV (test code = MPV) 7.7 7.4-10.4 [place] 468413-02-28 09:49:00 Test Item Value Reference Range Interpretation Comments Glucose Lvl (test code = Glucose Lvl) 93 70-99 [place] 468413-02-28 09:49:00 Test Item Value Reference Range Interpretation Comments BUN (test code = BUN) 30 7-22 [place] 468413-02-28 09:49:00 Test Item Value Reference Range Interpretation Comments Creatinine Lvl (test code = Creatinine 2.50 0.50-1.40 Lvl) [place] 468413-02-28 09:49:00 Test Item Value Reference Range Interpretation Comments Sodium Lvl (test code = Sodium Lvl) 138 135-145 [place] 468413-02-28 09:49:00 Test Item Value Reference Range Interpretation Comments Potassium Lvl (test code = Potassium 5.1 3.5-5.1 Lvl) [place] 468413-02-28 09:49:00 Test Item Value Reference Range Interpretation Comments Chloride Lvl (test code = Chloride Lvl) 108 95-109 [place] [address]-02-28 09:49:00 Test Item Value Reference Range Interpretation Comments CO2 (test code = CO2) 30 24-32 [place] 468413-02-28 09:49:00 Test Item Value Reference Range Interpretation Comments Calcium Lvl (test code = Calcium Lvl) 8.0 8.5-10.5 [place] 468413-02-28 09:49:00 Test Item Value Reference Range Interpretation Comments AGAP (test code = AGAP) 5.1 10.0-20.0 [place] 468413-02-28 09:49:00 Test Item Value Reference Range Interpretation Comments eGFR (test code = eGFR) 19 [place] [address]-02-28 09:49:00 Test Item Value Reference Range Interpretation Comments Glucose Lvl (test code = Glucose Lvl) 93 70-99 [place] 647753-02-28 09:49:00 Test Item Value Reference Range Interpretation Comments BUN (test code = BUN) 30 7-22 [place] 647753-02-28 09:49:00 Test Item Value Reference Range Interpretation Comments Creatinine Lvl (test code = Creatinine 2.50 0.50-1.40 Lvl) [place] 647753-02-28 09:49:00 Test Item Value Reference Range Interpretation Comments Sodium Lvl (test code = Sodium Lvl) 138 135-145 [place] [address]-02-28 09:49:00 Test Item Value Reference Range Interpretation Comments Potassium Lvl (test code = Potassium 5.1 3.5-5.1 Lvl) [place] [address]-02-28 09:49:00 Test Item Value Reference Range Interpretation Comments Chloride Lvl (test code = Chloride Lvl) 108 95-109 [place] 647753-02-28 09:49:00 Test Item Value Reference Range Interpretation Comments CO2 (test code = CO2) 30 24-32 [place] 647753-02-28 09:49:00 Test Item Value Reference Range Interpretation Comments Calcium Lvl (test code = Calcium Lvl) 8.0 8.5-10.5 [place] 647753-02-28 09:49:00 Test Item Value Reference Range Interpretation Comments AGAP (test code = AGAP) 5.1 10.0-20.0 [place] 647753-02-28 09:49:00 Test Item Value Reference Range Interpretation Comments eGFR (test code = eGFR) 19 [facility]AllenBtbuktfWGHVWHCNKN4827-41-10 09:49:00 Test Item Value Reference Range Interpretation Comments Segs (test code = Segs) 49.2 45.0-75.0 [place] 391173-02-28 09:49:00 Test Item Value Reference Range Interpretation Comments Lymphocytes (test code = Lymphocytes) 33.0 20.0-40.0 [facility]AllenSqgpenmDXTKPURMCX5392-18-89 09:49:00 Test Item Value Reference Range Interpretation Comments Monocytes (test code = Monocytes) 10.5 2.0-12.0 [facility] McAllenZhnoujlOXTFMRLYKY6337-18-83 09:49:00 Test Item Value Reference Range Interpretation Comments Eosinophils (test code = 6.6 See_Comment [A utomated message] The Eosinophils) system which nerated this result tra nsmitted reference range : <=4.0. The reference r christiano was not used to int erpret this result as normal/abnormal . [facility] McAllenPzdvsrdUCYWQCELBE0653-65-89 09:49:00 Test Item Value Reference Range Interpretation Comments Basophils (test code = 0.7 See_Comment [Aut omated message] The Basophils) system which ge nerated this result tra nsmitted reference range : <=1.0. The reference r christiano was not used to int erpret this result as normal/abnormal . [facility] McAllenFmmpwncOAVUMPOPAS7780-52-98 09:49:00 Test Item Value Reference Range Interpretation Comments Neutrophils # (test code = Neutrophils 3.0 1.5-8.1 #) [facility] McAllenKvdxiooILKRHIYEPZ2453-23-23 09:49:00 Test Item Value Reference Range Interpretation Comments Lymphocytes # (test code = Lymphocytes 2.0 1.0-5.5 #) [facility] McAllenQynsrphYJPKWAZTCK8467-01-10 09:49:00 Test Item Value Reference Range Interpretation Comments Monocytes # (test code 0.7 See_Comment [Aut omated message] The = Monocytes #) system which generated this result tra nsmitted reference range : <=0.8. The reference r christiano was not used to int erpret this result as normal/abnormal . [facility] McAllenAmebzndKHFBOTGAOG0208-42-72 09:49:00 Test Item Value Reference Range Interpretation Comments Eosinophils # (test code 0.4 See_Comment [A utomated message] The = Eosinophils #) system whic h generated this result tra nsmitted reference range : <=0.5. The reference r christiano was not used to int erpret this result as normal/abnormal . [facility] McAllenTfmmihxXZRMLSDHZQ0086-17-69 09:49:00 Test Item Value Reference Range Interpretation Comments WBC (test code = WBC) 6.2 3.7-10.4 [facility] McAllenLtosjgsHTEGFBWDOR7919-00-83 09:49:00 Test Item Value Reference Range Interpretation Comments RBC (test code = RBC) 3.06 4.20-5.40 [facility] McAllenUtosfmjBZYOGBGBAE7018-11-09 09:49:00 Test Item Value Reference Range Interpretation Comments Hgb (test code = Hgb) 9.2 12.0-16.0 [place] 391173-02-28 09:49:00 Test Item Value Reference Range Interpretation Comments Hct (test code = Hct) 28.0 36.0-48.0 [place] 391173-02-28 09:49:00 Test Item Value Reference Range Interpretation Comments MCV (test code = MCV) 91.5 80.0-98.0 [place] 391173-02-28 09:49:00 Test Item Value Reference Range Interpretation Comments MCH (test code = MCH) 30.0 pg 27.0-31.0 [place] 391173-02-28 09:49:00 Test Item Value Reference Range Interpretation Comments MCHC (test code = MCHC) 32.7 32.0-36.0 [place] 391173-02-28 09:49:00 Test Item Value Reference Range Interpretation Comments RDW (test code = RDW) 14.1 11.5-14.5 [place] [address]-02-28 09:49:00 Test Item Value Reference Range Interpretation Comments Platelet (test code = Platelet) 136 133-450 [place] 391173-02-28 09:49:00 Test Item Value Reference Range Interpretation Comments MPV (test code = MPV) 7.7 7.4-10.4 [place] 391173-02-28 09:49:00 Test Item Value Reference Range Interpretation Comments Segs (test code = Segs) 49.2 45.0-75.0 [place] 391173-02-28 09:49:00 Test Item Value Reference Range Interpretation Comments Lymphocytes (test code = Lymphocytes) 33.0 20.0-40.0 [place] [address]-02-28 09:49:00 Test Item Value Reference Range Interpretation Comments Monocytes (test code = Monocytes) 10.5 2.0-12.0 [place] 391173-02-28 09:49:00 Test Item Value Reference Range Interpretation Comments Eosinophils (test code = 6.6 See_Comment [A utomated message] The Eosinophils) system which ge nerated this result tra nsmitted reference range : <=4.0. The reference r christiano was not used to int erpret this result as normal/abnormal . [facility]AllenFqslzliYXERDXZKQE9080-70-76 09:49:00 Test Item Value Reference Range Interpretation Comments Basophils (test code = 0.7 See_Comment [Aut omated message] The Basophils) system which ge nerated this result tra nsmitted reference range : <=1.0. The reference r christiano was not used to int erpret this result as normal/abnormal . [facility] McAllenEvlmnvsNGSHHIKEYH4093-79-21 09:49:00 Test Item Value Reference Range Interpretation Comments Neutrophils # (test code = Neutrophils 3.0 1.5-8.1 #) [place] [address]-02-28 09:49:00 Test Item Value Reference Range Interpretation Comments Lymphocytes # (test code = Lymphocytes 2.0 1.0-5.5 #) [place] [address]-02-28 09:49:00 Test Item Value Reference Range Interpretation Comments Monocytes # (test code 0.7 See_Comment [Aut omated message] The = Monocytes #) system which generated this result tra nsmitted reference range : <=0.8. The reference r christiano was not used to int erpret this result as normal/abnormal . [facility] McAllenZldmxipULSDZVEUYW2724-96-20 09:49:00 Test Item Value Reference Range Interpretation Comments Eosinophils # (test code 0.4 See_Comment [A utomated message] The = Eosinophils #) system [employer] h generated this result tra nsmitted reference range : <=0.5. The reference r christiano was not used to int erpret this result as normal/abnormal . [facility] McAllenUfsyuztUHTATTRZNV4685-44-82 09:49:00 Test Item Value Reference Range Interpretation Comments WBC (test code = WBC) 6.2 3.7-10.4 [place] 391173-02-28 09:49:00 Test Item Value Reference Range Interpretation Comments RBC (test code = RBC) 3.06 4.20-5.40 [place] 391173-02-28 09:49:00 Test Item Value Reference Range Interpretation Comments Hgb (test code = Hgb) 9.2 12.0-16.0 [place] 391173-02-28 09:49:00 Test Item Value Reference Range Interpretation Comments Hct (test code = Hct) 28.0 36.0-48.0 [facility] McAllenZohzciuVCWDBDBWYK4603-79-19 09:49:00 Test Item Value Reference Range Interpretation Comments MCV (test code = MCV) 91.5 80.0-98.0 [place] 391173-02-28 09:49:00 Test Item Value Reference Range Interpretation Comments MCH (test code = MCH) 30.0 pg 27.0-31.0 [facility] McAllenUwrxwohEEIGHYIBPJ4439-38-70 09:49:00 Test Item Value Reference Range Interpretation Comments MCHC (test code = MCHC) 32.7 32.0-36.0 [place] 391173-02-28 09:49:00 Test Item Value Reference Range Interpretation Comments RDW (test code = RDW) 14.1 11.5-14.5 [facility] McAllenJacapenYLEYTDSBQJ5755-42-10 09:49:00 Test Item Value Reference Range Interpretation Comments Platelet (test code = Platelet) 136 133-450 [place] 391173-02-28 09:49:00 Test Item Value Reference Range Interpretation Comments MPV (test code = MPV) 7.7 7.4-10.4 [place] 468413-02-28 09:49:00 Test Item Value Reference Range Interpretation Comments Glucose Lvl (test code = Glucose Lvl) 93 70- [place] 468413-02-28 09:49:00 Test Item Value Reference Range Interpretation Comments BUN (test code = BUN) 30 - [place] 468413-02-28 09:49:00 Test Item Value Reference Range Interpretation Comments Creatinine Lvl (test code = Creatinine 2.50 0.50-1.40 Lvl) [place] 468413-02-28 09:49:00 Test Item Value Reference Range Interpretation Comments Sodium Lvl (test code = Sodium Lvl) 138 135-145 [place] 468413-02-28 09:49:00 Test Item Value Reference Range Interpretation Comments Potassium Lvl (test code = Potassium 5.1 3.5-5.1 Lvl) [place] [address]-02-28 09:49:00 Test Item Value Reference Range Interpretation Comments Chloride Lvl (test code = Chloride Lvl) 108 95-109 [place] [address]-02-28 09:49:00 Test Item Value Reference Range Interpretation Comments CO2 (test code = CO2) 30 24-32 [place] 468413-02-28 09:49:00 Test Item Value Reference Range Interpretation Comments Calcium Lvl (test code = Calcium Lvl) 8.0 8.5-10.5 [place] 468413-02-28 09:49:00 Test Item Value Reference Range Interpretation Comments AGAP (test code = AGAP) 5.1 10.0-20.0 [place] 468413-02-28 09:49:00 Test Item Value Reference Range Interpretation Comments eGFR (test code = eGFR) 19 [place] [address]-02-28 09:49:00 Test Item Value Reference Range Interpretation Comments Glucose Lvl (test code = Glucose Lvl) 93 70-99 [place] 647753-02-28 09:49:00 Test Item Value Reference Range Interpretation Comments BUN (test code = BUN) 30 7- [place] 647753-02-28 09:49:00 Test Item Value Reference Range Interpretation Comments Creatinine Lvl (test code = Creatinine 2.50 0.50-1.40 Lvl) [facility]bergKescwloMACIYBRLR8907-35-43 09:49:00 Test Item Value Reference Range Interpretation Comments Sodium Lvl (test code = Sodium Lvl) 138 135-145 [facility]bergAwyhpmhRPSZSLTIR8603-26-82 09:49:00 Test Item Value Reference Range Interpretation Comments Potassium Lvl (test code = Potassium 5.1 3.5-5.1 Lvl) [facility] KlebergOdkgqxyZQSMMEDPL6051-93-62 09:49:00 Test Item Value Reference Range Interpretation Comments Chloride Lvl (test code = Chloride Lvl) 108 95-109 [place] 647753-02-28 09:49:00 Test Item Value Reference Range Interpretation Comments CO2 (test code = CO2) 30 24-32 [facility] KlebergBycnthpKZYISMCMS8379-24-58 09:49:00 Test Item Value Reference Range Interpretation Comments Calcium Lvl (test code = Calcium Lvl) 8.0 8.5-10.5 [facility] KlebergTfvatehUBNDATAZO4601-39-79 09:49:00 Test Item Value Reference Range Interpretation Comments AGAP (test code = AGAP) 5.1 10.0-20.0 [facility] KlebergJwmvovyMLHRDEFOX5646-06-24 09:49:00 Test Item Value Reference Range Interpretation Comments eGFR (test code = eGFR) 19 [facility] McAllenToxxsbsXKNJOPTLWZ5442-40-80 09:49:00 Test Item Value Reference Range Interpretation Comments Segs (test code = Segs) 49.2 45.0-75.0 [facility] McAllenMmendovKBVLLTBZRC0625-70-47 09:49:00 Test Item Value Reference Range Interpretation Comments Lymphocytes (test code = Lymphocytes) 33.0 20.0-40.0 [place] 391173-02-28 09:49:00 Test Item Value Reference Range Interpretation Comments Monocytes (test code = Monocytes) 10.5 2.0-12.0 [place] 391173-02-28 09:49:00 Test Item Value Reference Range Interpretation Comments Eosinophils (test code = 6.6 See_Comment [A utomated message] The Eosinophils) system which ge nerated this result tra nsmitted reference range : <=4.0. The reference r christiano was not used to int erpret this result as normal/abnormal . [facility] McAllenIacxazrWJDGNBWHWQ7398-13-98 09:49:00 Test Item Value Reference Range Interpretation Comments Basophils (test code = 0.7 See_Comment [Aut omated message] The Basophils) system which ge nerated this result tra nsmitted reference range : <=1.0. The reference r christiano was not used to int erpret this result as normal/abnormal . [place] 391173-02-28 09:49:00 Test Item Value Reference Range Interpretation Comments Neutrophils # (test code = Neutrophils 3.0 1.5-8.1 #) [facility] McAllenOgdfyzrRKKRVPRACB1902-27-15 09:49:00 Test Item Value Reference Range Interpretation Comments Lymphocytes # (test code = Lymphocytes 2.0 1.0-5.5 #) [place] 391173-02-28 09:49:00 Test Item Value Reference Range Interpretation Comments Monocytes # (test code 0.7 See_Comment [Aut omated message] The = Monocytes #) system which generated this result tra nsmitted reference range : <=0.8. The reference r christiano was not used to int erpret this result as normal/abnormal . [facility] McAllenDdzasqxBDQJLKFDBF2776-42-09 09:49:00 Test Item Value Reference Range Interpretation Comments Eosinophils # (test code 0.4 See_Comment [A utomated message] The = Eosinophils #) system whic h generated this result tra nsmitted reference range : <=0.5. The reference r christiano was not used to int erpret this result as normal/abnormal . [facility]ins[facility]RLG[facility]DLWK9161[facility]45-76 09:49:00 Test Item Value Reference Range Interpretation Comments WBC (test code = WBC) 6.2 3.7-10.4 [place] 391173-02-28 09:49:00 Test Item Value Reference Range Interpretation Comments RBC (test code = RBC) 3.06 4.20-5.40 [place] [address]-02-28 09:49:00 Test Item Value Reference Range Interpretation Comments Hgb (test code = Hgb) 9.2 12.0-16.0 [place] [address]-02-28 09:49:00 Test Item Value Reference Range Interpretation Comments Hct (test code = Hct) 28.0 36.0-48.0 [place] [address]-02-28 09:49:00 Test Item Value Reference Range Interpretation Comments MCV (test code = MCV) 91.5 80.0-98.0 [place] [address]-02-28 09:49:00 Test Item Value Reference Range Interpretation Comments MCH (test code = MCH) 30.0 pg 27.0-31.0 [place] 391173-02-28 09:49:00 Test Item Value Reference Range Interpretation Comments MCHC (test code = MCHC) 32.7 32.0-36.0 [place] [address]-02-28 09:49:00 Test Item Value Reference Range Interpretation Comments RDW (test code = RDW) 14.1 11.5-14.5 [place] [address]-02-28 09:49:00 Test Item Value Reference Range Interpretation Comments Platelet (test code = Platelet) 136 133-450 [place] [address]-02-28 09:49:00 Test Item Value Reference Range Interpretation Comments MPV (test code = MPV) 7.7 7.4-10.4 [place] [address]-02-28 09:49:00 Test Item Value Reference Range Interpretation Comments Segs (test code = Segs) 49.2 45.0-75.0 [place] [address]-02-28 09:49:00 Test Item Value Reference Range Interpretation Comments Lymphocytes (test code = Lymphocytes) 33.0 20.0-40.0 [place] [address]-02-28 09:49:00 Test Item Value Reference Range Interpretation Comments Monocytes (test code = Monocytes) 10.5 2.0-12.0 [place] [address]-02-28 09:49:00 Test Item Value Reference Range Interpretation Comments Eosinophils (test code = 6.6 See_Comment [A utomated message] The Eosinophils) system which ge nerated this result tra nsmitted reference range : <=4.0. The reference r christiano was not used to int erpret this result as normal/abnormal . [place] [address]-02-28 09:49:00 Test Item Value Reference Range Interpretation Comments Basophils (test code = 0.7 See_Comment [Aut omated message] The Basophils) system which ge nerated this result tra nsmitted reference range : <=1.0. The reference r christiano was not used to int erpret this result as normal/abnormal . [facility]XnngvsmODPSVQTORA5205-59-54 09:49:00 Test Item Value Reference Range Interpretation Comments Neutrophils # (test code = Neutrophils 3.0 1.5-8.1 #) [facility]AllenGmftzyeREMACARIKC4732-91-12 09:49:00 Test Item Value Reference Range Interpretation Comments Lymphocytes # (test code = Lymphocytes 2.0 1.0-5.5 #) [facility]AllenJplbewrEQKLDUTCUC5572-29-23 09:49:00 Test Item Value Reference Range Interpretation Comments Monocytes # (test code 0.7 See_Comment [Aut omated message] The = Monocytes #) system which generated this result tra nsmitted reference range : <=0.8. The reference r christiano was not used to int erpret this result as normal/abnormal . [facility]AllenWwvmnrfFITIOKPQXP1261-67-89 09:49:00 Test Item Value Reference Range Interpretation Comments Eosinophils # (test code 0.4 See_Comment [A utomated message] The = Eosinophils #) system whic h generated this result tra nsmitted reference range : <=0.5. The reference r christiano was not used to int erpret this result as normal/abnormal . [facility]AllenOiodtybDIOSRIZEZM5361-49-62 09:49:00 Test Item Value Reference Range Interpretation Comments WBC (test code = WBC) 6.2 3.7-10.4 [facility]AllenBqbfkzdVPLMOIXOQK4487-67-61 09:49:00 Test Item Value Reference Range Interpretation Comments RBC (test code = RBC) 3.06 4.20-5.40 [place] 391173-02-28 09:49:00 Test Item Value Reference Range Interpretation Comments Hgb (test code = Hgb) 9.2 12.0-16.0 [place] 391173-02-28 09:49:00 Test Item Value Reference Range Interpretation Comments Hct (test code = Hct) 28.0 36.0-48.0 [place] 391173-02-28 09:49:00 Test Item Value Reference Range Interpretation Comments MCV (test code = MCV) 91.5 80.0-98.0 [place] 391173-02-28 09:49:00 Test Item Value Reference Range Interpretation Comments MCH (test code = MCH) 30.0 pg 27.0-31.0 [place] [address]-02-28 09:49:00 Test Item Value Reference Range Interpretation Comments MCHC (test code = MCHC) 32.7 32.0-36.0 [place] [address]-02-28 09:49:00 Test Item Value Reference Range Interpretation Comments RDW (test code = RDW) 14.1 11.5-14.5 [place] [address]-02-28 09:49:00 Test Item Value Reference Range Interpretation Comments Platelet (test code = Platelet) 136 133-450 [place] [address]-02-28 09:49:00 Test Item Value Reference Range Interpretation Comments MPV (test code = MPV) 7.7 7.4-10.4 [place] 468413-02-28 09:49:00 Test Item Value Reference Range Interpretation Comments Glucose Lvl (test code = Glucose Lvl) 93 70-99 [place] 468413-02-28 09:49:00 Test Item Value Reference Range Interpretation Comments BUN (test code = BUN) 30 7-22 [place] 468413-02-28 09:49:00 Test Item Value Reference Range Interpretation Comments Creatinine Lvl (test code = Creatinine 2.50 0.50-1.40 Lvl) [place] 468413-02-28 09:49:00 Test Item Value Reference Range Interpretation Comments Sodium Lvl (test code = Sodium Lvl) 138 135-145 [place] 468413-02-28 09:49:00 Test Item Value Reference Range Interpretation Comments Potassium Lvl (test code = Potassium 5.1 3.5-5.1 Lvl) [place] 468413-02-28 09:49:00 Test Item Value Reference Range Interpretation Comments Chloride Lvl (test code = Chloride Lvl) 108 95-109 [place] 468413-02-28 09:49:00 Test Item Value Reference Range Interpretation Comments CO2 (test code = CO2) 30 24-32 [place] 468413-02-28 09:49:00 Test Item Value Reference Range Interpretation Comments Calcium Lvl (test code = Calcium Lvl) 8.0 8.5-10.5 [place] 468413-02-28 09:49:00 Test Item Value Reference Range Interpretation Comments AGAP (test code = AGAP) 5.1 10.0-20.0 [facility]2023-02-28 09:49:00 Test Item Value Reference Range Interpretation Comments eGFR (test code = eGFR) 19 [place] 647753-02-28 09:49:00 Test Item Value Reference Range Interpretation Comments Glucose Lvl (test code = Glucose Lvl) 93 70-99 [place] [address]-02-28 09:49:00 Test Item Value Reference Range Interpretation Comments BUN (test code = BUN) 30 7-22 [place] 647753-02-28 09:49:00 Test Item Value Reference Range Interpretation Comments Creatinine Lvl (test code = Creatinine 2.50 0.50-1.40 Lvl) [place] 647753-02-28 09:49:00 Test Item Value Reference Range Interpretation Comments Sodium Lvl (test code = Sodium Lvl) 138 135-145 [place] 647753-02-28 09:49:00 Test Item Value Reference Range Interpretation Comments Potassium Lvl (test code = Potassium 5.1 3.5-5.1 Lvl) [facility]oinPLXNJMEDW4218-89-[facility] 09:49:00 Test Item Value Reference Range Interpretation Comments Chloride Lvl (test code = Chloride Lvl) 108 95-109 [place] 647753-02-28 09:49:00 Test Item Value Reference Range Interpretation Comments CO2 (test code = CO2) 30 24-32 [place] 647753-02-28 09:49:00 Test Item Value Reference Range Interpretation Comments Calcium Lvl (test code = Calcium Lvl) 8.0 8.5-10.5 [place] 647753-02-28 09:49:00 Test Item Value Reference Range Interpretation Comments AGAP (test code = AGAP) 5.1 10.0-20.0 [place] [address]-02-28 09:49:00 Test Item Value Reference Range Interpretation Comments eGFR (test code = eGFR) 19 [facility]AllenJydtgebNYEIPMNYTG8111-07-95 09:49:00 Test Item Value Reference Range Interpretation Comments Segs (test code = Segs) 49.2 45.0-75.0 [place] 391173-02-28 09:49:00 Test Item Value Reference Range Interpretation Comments Lymphocytes (test code = Lymphocytes) 33.0 20.0-40.0 [place] 391173-02-28 09:49:00 Test Item Value Reference Range Interpretation Comments Monocytes (test code = Monocytes) 10.5 2.0-12.0 [facility]AllenJqdfosoUNNNUSEKZF6557-65-42 09:49:00 Test Item Value Reference Range Interpretation Comments Eosinophils (test code = 6.6 See_Comment [A utomated message] The Eosinophils) system which ge nerated this result tra nsmitted reference range : <=4.0. The reference r christiano was not used to int erpret this result as normal/abnormal . [place] 391173-02-28 09:49:00 Test Item Value Reference Range Interpretation Comments Basophils (test code = 0.7 See_Comment [Aut omated message] The Basophils) system which ge nerated this result tra nsmitted reference range : <=1.0. The reference r christiano was not used to int erpret this result as normal/abnormal . [facility]AllenIrnvvvxRPSSXEGTGL6424-50-22 09:49:00 Test Item Value Reference Range Interpretation Comments Neutrophils # (test code = Neutrophils 3.0 1.5-8.1 #) [facility]AllenMcexifqGHEMBQUMRK5998-59-93 09:49:00 Test Item Value Reference Range Interpretation Comments Lymphocytes # (test code = Lymphocytes 2.0 1.0-5.5 #) [place] 391173-02-28 09:49:00 Test Item Value Reference Range Interpretation Comments Monocytes # (test code 0.7 See_Comment [Aut omated message] The = Monocytes #) system which generated this result tra nsmitted reference range : <=0.8. The reference r christiano was not used to int erpret this result as normal/abnormal . [place] 391173-02-28 09:49:00 Test Item Value Reference Range Interpretation Comments Eosinophils # (test code 0.4 See_Comment [A utomated message] The = Eosinophils #) system whic h generated this result tra nsmitted reference range : <=0.5. The reference r christiano was not used to int erpret this result as normal/abnormal . [place] 391173-02-28 09:49:00 Test Item Value Reference Range Interpretation Comments WBC (test code = WBC) 6.2 3.7-10.4 [place] 391173-02-28 09:49:00 Test Item Value Reference Range Interpretation Comments RBC (test code = RBC) 3.06 4.20-5.40 [facility]AllenGqnidgtJTOOYIMVRA1279-36-32 09:49:00 Test Item Value Reference Range Interpretation Comments Hgb (test code = Hgb) 9.2 12.0-16.0 [place] 391173-02-28 09:49:00 Test Item Value Reference Range Interpretation Comments Hct (test code = Hct) 28.0 36.0-48.0 [facility]AllenHppsvbxVNDCTQPVIV8360-85-19 09:49:00 Test Item Value Reference Range Interpretation Comments MCV (test code = MCV) 91.5 80.0-98.0 [facility]AllenCtgjysxYMCIJMLSXI3799-11-85 09:49:00 Test Item Value Reference Range Interpretation Comments MCH (test code = MCH) 30.0 pg 27.0-31.0 [facility]AllenWpvzqttRFAEPXLBMR6856-49-07 09:49:00 Test Item Value Reference Range Interpretation Comments MCHC (test code = MCHC) 32.7 32.0-36.0 [facility] McAllenEchqtohCMBCVCRIRW8689-37-18 09:49:00 Test Item Value Reference Range Interpretation Comments RDW (test code = RDW) 14.1 11.5-14.5 [facility]AllenJotxdylAYDRWAEFAP4475-27-72 09:49:00 Test Item Value Reference Range Interpretation Comments Platelet (test code = Platelet) 136 133-450 [facility]AllenPbtldcrZUGDXXWRRV3103-42-22 09:49:00 Test Item Value Reference Range Interpretation Comments MPV (test code = MPV) 7.7 7.4-10.4 [facility] McAllenBrsepbaWUJSJDZBPZ7403-35-73 09:49:00 Test Item Value Reference Range Interpretation Comments Segs (test code = Segs) 49.2 45.0-75.0 [place] 391173-02-28 09:49:00 Test Item Value Reference Range Interpretation Comments Lymphocytes (test code = Lymphocytes) 33.0 20.0-40.0 [place] 391173-02-28 09:49:00 Test Item Value Reference Range Interpretation Comments Monocytes (test code = Monocytes) 10.5 2.0-12.0 [place] 391173-02-28 09:49:00 Test Item Value Reference Range Interpretation Comments Eosinophils (test code = 6.6 See_Comment [A utomated message] The Eosinophils) system which ge nerated this result tra nsmitted reference range : <=4.0. The reference r christiano was not used to int erpret this result as normal/abnormal . [place] 391173-02-28 09:49:00 Test Item Value Reference Range Interpretation Comments Basophils (test code = 0.7 See_Comment [Aut omated message] The Basophils) system which ge nerated this result tra nsmitted reference range : <=1.0. The reference r christiano was not used to int erpret this result as normal/abnormal . [place] 391173-02-28 09:49:00 Test Item Value Reference Range Interpretation Comments Neutrophils # (test code = Neutrophils 3.0 1.5-8.1 #) [place] 391173-02-28 09:49:00 Test Item Value Reference Range Interpretation Comments Lymphocytes # (test code = Lymphocytes 2.0 1.0-5.5 #) [place] 391173-02-28 09:49:00 Test Item Value Reference Range Interpretation Comments Monocytes # (test code 0.7 See_Comment [Aut omated message] The = Monocytes #) system which generated this result tra nsmitted reference range : <=0.8. The reference r christiano was not used to int erpret this result as normal/abnormal . [place] 391173-02-28 09:49:00 Test Item Value Reference Range Interpretation Comments Eosinophils # (test code 0.4 See_Comment [A utomated message] The = Eosinophils #) system whic h generated this result tra nsmitted reference range : <=0.5. The reference r christiano was not used to int erpret this result as normal/abnormal . [place] 391173-02-28 09:49:00 Test Item Value Reference Range Interpretation Comments WBC (test code = WBC) 6.2 3.7-10.4 [place] 391173-02-28 09:49:00 Test Item Value Reference Range Interpretation Comments RBC (test code = RBC) 3.06 4.20-5.40 [place] 391173-02-28 09:49:00 Test Item Value Reference Range Interpretation Comments Hgb (test code = Hgb) 9.2 12.0-16.0 [place] [address]-02-28 09:49:00 Test Item Value Reference Range Interpretation Comments Hct (test code = Hct) 28.0 36.0-48.0 [place] [address]-02-28 09:49:00 Test Item Value Reference Range Interpretation Comments MCV (test code = MCV) 91.5 80.0-98.0 [place] [address]-02-28 09:49:00 Test Item Value Reference Range Interpretation Comments MCH (test code = MCH) 30.0 pg 27.0-31.0 [place] [address]-02-28 09:49:00 Test Item Value Reference Range Interpretation Comments MCHC (test code = MCHC) 32.7 32.0-36.0 [place] [address]-02-28 09:49:00 Test Item Value Reference Range Interpretation Comments RDW (test code = RDW) 14.1 11.5-14.5 [place] [address]-02-28 09:49:00 Test Item Value Reference Range Interpretation Comments Platelet (test code = Platelet) 136 133-450 [place] [address]-02-28 09:49:00 Test Item Value Reference Range Interpretation Comments MPV (test code = MPV) 7.7 7.4-10.4 [place] 468413-02-28 09:49:00 Test Item Value Reference Range Interpretation Comments Glucose Lvl (test code = Glucose Lvl) 93 70-99 [place] 468413-02-28 09:49:00 Test Item Value Reference Range Interpretation Comments BUN (test code = BUN) 30 7-22 [place] 468413-02-28 09:49:00 Test Item Value Reference Range Interpretation Comments Creatinine Lvl (test code = Creatinine 2.50 0.50-1.40 Lvl) [place] 468413-02-28 09:49:00 Test Item Value Reference Range Interpretation Comments Sodium Lvl (test code = Sodium Lvl) 138 135-145 [place] 468413-02-28 09:49:00 Test Item Value Reference Range Interpretation Comments Potassium Lvl (test code = Potassium 5.1 3.5-5.1 Lvl) [place] 468413-02-28 09:49:00 Test Item Value Reference Range Interpretation Comments Chloride Lvl (test code = Chloride Lvl) 108 95-109 [place] 468413-02-28 09:49:00 Test Item Value Reference Range Interpretation Comments CO2 (test code = CO2) 30 - [place] 468413-02-28 09:49:00 Test Item Value Reference Range Interpretation Comments Calcium Lvl (test code = Calcium Lvl) 8.0 8.5-10.5 [place] 468413-02-28 09:49:00 Test Item Value Reference Range Interpretation Comments AGAP (test code = AGAP) 5.1 10.0-20.0 [place] 468413-02-28 09:49:00 Test Item Value Reference Range Interpretation Comments eGFR (test code = eGFR) 19 [place] 647753-02-28 09:49:00 Test Item Value Reference Range Interpretation Comments Glucose Lvl (test code = Glucose Lvl) 93 70-99 [place] 647753-02-28 09:49:00 Test Item Value Reference Range Interpretation Comments BUN (test code = BUN) 30 - [place] 647753-02-28 09:49:00 Test Item Value Reference Range Interpretation Comments Creatinine Lvl (test code = Creatinine 2.50 0.50-1.40 Lvl) [place] 647753-02-28 09:49:00 Test Item Value Reference Range Interpretation Comments Sodium Lvl (test code = Sodium Lvl) 138 135-145 [place] 647753-02-28 09:49:00 Test Item Value Reference Range Interpretation Comments Potassium Lvl (test code = Potassium 5.1 3.5-5.1 Lvl) [place] 647753-02-28 09:49:00 Test Item Value Reference Range Interpretation Comments Chloride Lvl (test code = Chloride Lvl) 108 95-109 [place] [address]-02-28 09:49:00 Test Item Value Reference Range Interpretation Comments CO2 (test code = CO2) 30 -32 [place] 647753-02-28 09:49:00 Test Item Value Reference Range Interpretation Comments Calcium Lvl (test code = Calcium Lvl) 8.0 8.5-10.5 [place] 647753-02-28 09:49:00 Test Item Value Reference Range Interpretation Comments AGAP (test code = AGAP) 5.1 10.0-20.0 [place] 1999[address]-02-28 09:49:00 Test Item Value Reference Range Interpretation Comments eGFR (test code = eGFR) 19 [place] 391173-02-28 09:49:00 Test Item Value Reference Range Interpretation Comments Segs (test code = Segs) 49.2 45.0-75.0 [place] [address]-02-28 09:49:00 Test Item Value Reference Range Interpretation Comments Lymphocytes (test code = Lymphocytes) 33.0 20.0-40.0 [place] [address]-02-28 09:49:00 Test Item Value Reference Range Interpretation Comments Monocytes (test code = Monocytes) 10.5 2.0-12.0 [place] 391173-02-28 09:49:00 Test Item Value Reference Range Interpretation Comments Eosinophils (test code = 6.6 See_Comment [A utomated message] The Eosinophils) system which ge nerated this result tra nsmitted reference range : <=4.0. The reference r christiano was not used to int erpret this result as normal/abnormal . [facility]AllenOiuewifTZWOKGIOWX0538-20-30 09:49:00 Test Item Value Reference Range Interpretation Comments Basophils (test code = 0.7 See_Comment [Aut omated message] The Basophils) system which ge nerated this result tra nsmitted reference range : <=1.0. The reference r christiano was not used to int erpret this result as normal/abnormal . [place] 391173-02-28 09:49:00 Test Item Value Reference Range Interpretation Comments Neutrophils # (test code = Neutrophils 3.0 1.5-8.1 #) [place] [address]-02-28 09:49:00 Test Item Value Reference Range Interpretation Comments Lymphocytes # (test code = Lymphocytes 2.0 1.0-5.5 #) [place] [address]-02-28 09:49:00 Test Item Value Reference Range Interpretation Comments Monocytes # (test code 0.7 See_Comment [Aut omated message] The = Monocytes #) system which generated this result tra nsmitted reference range : <=0.8. The reference r christiano was not used to int erpret this result as normal/abnormal . [facility]AllenAoxnatsGIILQUGHXR3246-00-36 09:49:00 Test Item Value Reference Range Interpretation Comments Eosinophils # (test code 0.4 See_Comment [A utomated message] The = Eosinophils #) system whic h generated this result tra nsmitted reference range : <=0.5. The reference r christiano was not used to int erpret this result as normal/abnormal . [facility]AllenQrgpjuyTBAMHYPOXG2479-02-01 09:49:00 Test Item Value Reference Range Interpretation Comments WBC (test code = WBC) 6.2 3.7-10.4 [place] 391173-02-28 09:49:00 Test Item Value Reference Range Interpretation Comments RBC (test code = RBC) 3.06 4.20-5.40 [facility]AllenFwfyfmwOBHZLZMMVY7165-10-98 09:49:00 Test Item Value Reference Range Interpretation Comments Hgb (test code = Hgb) 9.2 12.0-16.0 [facility] McAllenLsykgnmMUAIWYXEKM6258-38-03 09:49:00 Test Item Value Reference Range Interpretation Comments Hct (test code = Hct) 28.0 36.0-48.0 [facility]AllenNodtoyoYDVMCUNNCM7446-87-18 09:49:00 Test Item Value Reference Range Interpretation Comments MCV (test code = MCV) 91.5 80.0-98.0 [facility]AllenJlxdpkpMTGUBHJTDI1641-65-47 09:49:00 Test Item Value Reference Range Interpretation Comments MCH (test code = MCH) 30.0 pg 27.0-31.0 [facility] McAllenVwrddawFSTEJJJAAW3348-30-00 09:49:00 Test Item Value Reference Range Interpretation Comments MCHC (test code = MCHC) 32.7 32.0-36.0 [facility]AllenWnxvchzKYRVFWXLPQ5075-63-24 09:49:00 Test Item Value Reference Range Interpretation Comments RDW (test code = RDW) 14.1 11.5-14.5 [place] 391173-02-28 09:49:00 Test Item Value Reference Range Interpretation Comments Platelet (test code = Platelet) 136 133-450 [facility] McAllenCaflentKVILMCFOMR8319-21-66 09:49:00 Test Item Value Reference Range Interpretation Comments MPV (test code = MPV) 7.7 7.4-10.4 [place] [address]-02-28 09:49:00 Test Item Value Reference Range Interpretation Comments Segs (test code = Segs) 49.2 45.0-75.0 [place] [address]-02-28 09:49:00 Test Item Value Reference Range Interpretation Comments Lymphocytes (test code = Lymphocytes) 33.0 20.0-40.0 [place] [address]-02-28 09:49:00 Test Item Value Reference Range Interpretation Comments Monocytes (test code = Monocytes) 10.5 2.0-12.0 [place] [address]-02-28 09:49:00 Test Item Value Reference Range Interpretation Comments Eosinophils (test code = 6.6 See_Comment [A utomated message] The Eosinophils) system which ge nerated this result tra nsmitted reference range : <=4.0. The reference r christiano was not used to int erpret this result as normal/abnormal . [place] [address]-02-28 09:49:00 Test Item Value Reference Range Interpretation Comments Basophils (test code = 0.7 See_Comment [Aut omated message] The Basophils) system which ge nerated this result tra nsmitted reference range : <=1.0. The reference r christiano was not used to int erpret this result as normal/abnormal . [place] 391173-02-28 09:49:00 Test Item Value Reference Range Interpretation Comments Neutrophils # (test code = Neutrophils 3.0 1.5-8.1 #) [place] [address]-02-28 09:49:00 Test Item Value Reference Range Interpretation Comments Lymphocytes # (test code = Lymphocytes 2.0 1.0-5.5 #) [place] [address]-02-28 09:49:00 Test Item Value Reference Range Interpretation Comments Monocytes # (test code 0.7 See_Comment [Aut omated message] The = Monocytes #) system which generated this result tra nsmitted reference range : <=0.8. The reference r christiano was not used to int erpret this result as normal/abnormal . [place] [address]-02-28 09:49:00 Test Item Value Reference Range Interpretation Comments Eosinophils # (test code 0.4 See_Comment [A utomated message] The = Eosinophils #) system whic h generated this result tra nsmitted reference range : <=0.5. The reference r chrsitiano was not used to int erpret this result as normal/abnormal . [facility] McAllenIxzcaimSWYQFSUEQU4296-16-76 09:49:00 Test Item Value Reference Range Interpretation Comments WBC (test code = WBC) 6.2 3.7-10.4 [place] 391173-02-28 09:49:00 Test Item Value Reference Range Interpretation Comments RBC (test code = RBC) 3.06 4.20-5.40 [place] 391173-02-28 09:49:00 Test Item Value Reference Range Interpretation Comments Hgb (test code = Hgb) 9.2 12.0-16.0 [place] 391173-02-28 09:49:00 Test Item Value Reference Range Interpretation Comments Hct (test code = Hct) 28.0 36.0-48.0 [facility]AllenMsydmtvNZVVTQXVXV0700-19-61 09:49:00 Test Item Value Reference Range Interpretation Comments MCV (test code = MCV) 91.5 80.0-98.0 [facility] McAllenDniragaPOBGGCXPQN2286-14-21 09:49:00 Test Item Value Reference Range Interpretation Comments MCH (test code = MCH) 30.0 pg 27.0-31.0 [facility]AllenKgqemkhPWEQQGPUIX4272-06-70 09:49:00 Test Item Value Reference Range Interpretation Comments MCHC (test code = MCHC) 32.7 32.0-36.0 [facility]AllenKowssyxZRXJENVGBN1550-19-04 09:49:00 Test Item Value Reference Range Interpretation Comments RDW (test code = RDW) 14.1 11.5-14.5 [place] 391173-02-28 09:49:00 Test Item Value Reference Range Interpretation Comments Platelet (test code = Platelet) 136 133-450 [facility]AllenExhxqibCSJWYRXUWZ0004-07-59 09:49:00 Test Item Value Reference Range Interpretation Comments MPV (test code = MPV) 7.7 7.4-10.4 [facility]2023-02-28 09:49:00 Test Item Value Reference Range Interpretation Comments Glucose Lvl (test code = Glucose Lvl) 93 70-99 [facility]2023-02-28 09:49:00 Test Item Value Reference Range Interpretation Comments BUN (test code = BUN) 30 7- [place] 468413-02-28 09:49:00 Test Item Value Reference Range Interpretation Comments Creatinine Lvl (test code = Creatinine 2.50 0.50-1.40 Lvl) [place] 468413-02-28 09:49:00 Test Item Value Reference Range Interpretation Comments Sodium Lvl (test code = Sodium Lvl) 138 135-145 [place] 468413-02-28 09:49:00 Test Item Value Reference Range Interpretation Comments Potassium Lvl (test code = Potassium 5.1 3.5-5.1 Lvl) [place] 468413-02-28 09:49:00 Test Item Value Reference Range Interpretation Comments Chloride Lvl (test code = Chloride Lvl) 108 95-109 [facility]2023-02-28 09:49:00 Test Item Value Reference Range Interpretation Comments CO2 (test code = CO2) 30 24-32 [place] 468413-02-28 09:49:00 Test Item Value Reference Range Interpretation Comments Calcium Lvl (test code = Calcium Lvl) 8.0 8.5-10.5 [place] 468413-02-28 09:49:00 Test Item Value Reference Range Interpretation Comments AGAP (test code = AGAP) 5.1 10.0-20.0 [place] 468413-02-28 09:49:00 Test Item Value Reference Range Interpretation Comments eGFR (test code = eGFR) 19 [facility]MdenvjsOCCXELNBG9116-86-82 09:49:00 Test Item Value Reference Range Interpretation Comments Glucose Lvl (test code = Glucose Lvl) 93 70-99 [place] [address]-02-28 09:49:00 Test Item Value Reference Range Interpretation Comments BUN (test code = BUN) 30 7- [place] 647753-02-28 09:49:00 Test Item Value Reference Range Interpretation Comments Creatinine Lvl (test code = Creatinine 2.50 0.50-1.40 Lvl) [facility]bergYoalnoyXUHQRAMVG6879-84-74 09:49:00 Test Item Value Reference Range Interpretation Comments Sodium Lvl (test code = Sodium Lvl) 138 135-145 [address]02-28 09:49:00 Test Item Value Reference Range Interpretation Comments Potassium Lvl (test code = Potassium 5.1 3.5-5.1 Lvl) [place] 647753-02-28 09:49:00 Test Item Value Reference Range Interpretation Comments Chloride Lvl (test code = Chloride Lvl) 108 95-109 [place] 647753-02-28 09:49:00 Test Item Value Reference Range Interpretation Comments CO2 (test code = CO2) 30 24-32 [place] 647753-02-28 09:49:00 Test Item Value Reference Range Interpretation Comments Calcium Lvl (test code = Calcium Lvl) 8.0 8.5-10.5 [place] 647753-02-28 09:49:00 Test Item Value Reference Range Interpretation Comments AGAP (test code = AGAP) 5.1 10.0-20.0 [facility]bergXbfwywrFLIPZCFTX4552-73-83 09:49:00 Test Item Value Reference Range Interpretation Comments eGFR (test code = eGFR) 19 [facility]AllenFswdobpORYAKJSIPM4860-30-66 09:49:00 Test Item Value Reference Range Interpretation Comments Segs (test code = Segs) 49.2 45.0-75.0 [place] 391173-02-28 09:49:00 Test Item Value Reference Range Interpretation Comments Lymphocytes (test code = Lymphocytes) 33.0 20.0-40.0 [place] 391173-02-28 09:49:00 Test Item Value Reference Range Interpretation Comments Monocytes (test code = Monocytes) 10.5 2.0-12.0 [place] [address]-02-28 09:49:00 Test Item Value Reference Range Interpretation Comments Eosinophils (test code = 6.6 See_Comment [A utomated message] The Eosinophils) system which ge nerated this result tra nsmitted reference range : <=4.0. The reference r christiano was not used to int erpret this result as normal/abnormal . [place] 391173-02-28 09:49:00 Test Item Value Reference Range Interpretation Comments Basophils (test code = 0.7 See_Comment [Aut omated message] The Basophils) system which ge nerated this result tra nsmitted reference range : <=1.0. The reference r christiano was not used to int erpret this result as normal/abnormal . [place] 391173-02-28 09:49:00 Test Item Value Reference Range Interpretation Comments Neutrophils # (test code = Neutrophils 3.0 1.5-8.1 #) [place] 391173-02-28 09:49:00 Test Item Value Reference Range Interpretation Comments Lymphocytes # (test code = Lymphocytes 2.0 1.0-5.5 #) [place] [address]-02-28 09:49:00 Test Item Value Reference Range Interpretation Comments Monocytes # (test code 0.7 See_Comment [Aut omated message] The = Monocytes #) system which generated this result tra nsmitted reference range : <=0.8. The reference r christiano was not used to int erpret this result as normal/abnormal . [place] [address]-02-28 09:49:00 Test Item Value Reference Range Interpretation Comments Eosinophils # (test code 0.4 See_Comment [A utomated message] The = Eosinophils #) system whic h generated this result tra nsmitted reference range : <=0.5. The reference r christiano was not used to int erpret this result as normal/abnormal . [place] 391173-02-28 09:49:00 Test Item Value Reference Range Interpretation Comments WBC (test code = WBC) 6.2 3.7-10.4 [place] [address]-02-28 09:49:00 Test Item Value Reference Range Interpretation Comments RBC (test code = RBC) 3.06 4.20-5.40 [place] [address]-02-28 09:49:00 Test Item Value Reference Range Interpretation Comments Hgb (test code = Hgb) 9.2 12.0-16.0 [place] [address]-02-28 09:49:00 Test Item Value Reference Range Interpretation Comments Hct (test code = Hct) 28.0 36.0-48.0 [place] [address]-02-28 09:49:00 Test Item Value Reference Range Interpretation Comments MCV (test code = MCV) 91.5 80.0-98.0 [place] [address]-02-28 09:49:00 Test Item Value Reference Range Interpretation Comments MCH (test code = MCH) 30.0 pg 27.0-31.0 [place] [address]-02-28 09:49:00 Test Item Value Reference Range Interpretation Comments MCHC (test code = MCHC) 32.7 32.0-36.0 [place] 391173-02-28 09:49:00 Test Item Value Reference Range Interpretation Comments RDW (test code = RDW) 14.1 11.5-14.5 [place] [address]-02-28 09:49:00 Test Item Value Reference Range Interpretation Comments Platelet (test code = Platelet) 136 133-450 [place] [address]-02-28 09:49:00 Test Item Value Reference Range Interpretation Comments MPV (test code = MPV) 7.7 7.4-10.4 [place] [address]-02-28 09:49:00 Test Item Value Reference Range Interpretation Comments Segs (test code = Segs) 49.2 45.0-75.0 [place] [address]-02-28 09:49:00 Test Item Value Reference Range Interpretation Comments Lymphocytes (test code = Lymphocytes) 33.0 20.0-40.0 [place] [address]-02-28 09:49:00 Test Item Value Reference Range Interpretation Comments Monocytes (test code = Monocytes) 10.5 2.0-12.0 [place] 391173-02-28 09:49:00 Test Item Value Reference Range Interpretation Comments Eosinophils (test code = 6.6 See_Comment [A utomated message] The Eosinophils) system which ge nerated this result tra nsmitted reference range : <=4.0. The reference r christiano was not used to int erpret this result as normal/abnormal . [place] 391173-02-28 09:49:00 Test Item Value Reference Range Interpretation Comments Basophils (test code = 0.7 See_Comment [Aut omated message] The Basophils) system which ge nerated this result tra nsmitted reference range : <=1.0. The reference r christiano was not used to int erpret this result as normal/abnormal . [place] 391173-02-28 09:49:00 Test Item Value Reference Range Interpretation Comments Neutrophils # (test code = Neutrophils 3.0 1.5-8.1 #) [place] 391173-02-28 09:49:00 Test Item Value Reference Range Interpretation Comments Lymphocytes # (test code = Lymphocytes 2.0 1.0-5.5 #) [facility]AllenGminppzBJZOJZCBLZ0263-36-10 09:49:00 Test Item Value Reference Range Interpretation Comments Monocytes # (test code 0.7 See_Comment [Aut omated message] The = Monocytes #) system which generated this result tra nsmitted reference range : <=0.8. The reference r christiano was not used to int erpret this result as normal/abnormal . [place] 391173-02-28 09:49:00 Test Item Value Reference Range Interpretation Comments Eosinophils # (test code 0.4 See_Comment [A utomated message] The = Eosinophils #) system whic h generated this result tra nsmitted reference range : <=0.5. The reference r christiano was not used to int erpret this result as normal/abnormal . [facility]AllenHwmeuzvBNVARTSMBD2196-27-68 09:49:00 Test Item Value Reference Range Interpretation Comments WBC (test code = WBC) 6.2 3.7-10.4 [place] [address]-02-28 09:49:00 Test Item Value Reference Range Interpretation Comments RBC (test code = RBC) 3.06 4.20-5.40 [place] [address]-02-28 09:49:00 Test Item Value Reference Range Interpretation Comments Hgb (test code = Hgb) 9.2 12.0-16.0 [place] [address]-02-28 09:49:00 Test Item Value Reference Range Interpretation Comments Hct (test code = Hct) 28.0 36.0-48.0 [place] 391173-02-28 09:49:00 Test Item Value Reference Range Interpretation Comments MCV (test code = MCV) 91.5 80.0-98.0 [place] [address]-02-28 09:49:00 Test Item Value Reference Range Interpretation Comments MCH (test code = MCH) 30.0 pg 27.0-31.0 [place] [address]-02-28 09:49:00 Test Item Value Reference Range Interpretation Comments MCHC (test code = MCHC) 32.7 32.0-36.0 [place] 391173-02-28 09:49:00 Test Item Value Reference Range Interpretation Comments RDW (test code = RDW) 14.1 11.5-14.5 [place] [address]-02-28 09:49:00 Test Item Value Reference Range Interpretation Comments Platelet (test code = Platelet) 136 133-450 [place] [address]-02-28 09:49:00 Test Item Value Reference Range Interpretation Comments MPV (test code = MPV) 7.7 7.4-10.4 [place] 468413-02-28 09:49:00 Test Item Value Reference Range Interpretation Comments Glucose Lvl (test code = Glucose Lvl) 93 70-99 [place] [address]-02-28 09:49:00 Test Item Value Reference Range Interpretation Comments BUN (test code = BUN) 30 7-22 [place] 468413-02-28 09:49:00 Test Item Value Reference Range Interpretation Comments Creatinine Lvl (test code = Creatinine 2.50 0.50-1.40 Lvl) [place] 468413-02-28 09:49:00 Test Item Value Reference Range Interpretation Comments Sodium Lvl (test code = Sodium Lvl) 138 135-145 [place] 468413-02-28 09:49:00 Test Item Value Reference Range Interpretation Comments Potassium Lvl (test code = Potassium 5.1 3.5-5.1 Lvl) [place] 468413-02-28 09:49:00 Test Item Value Reference Range Interpretation Comments Chloride Lvl (test code = Chloride Lvl) 108 95-109 [place] 468413-02-28 09:49:00 Test Item Value Reference Range Interpretation Comments CO2 (test code = CO2) 30 24-32 [place] 468413-02-28 09:49:00 Test Item Value Reference Range Interpretation Comments Calcium Lvl (test code = Calcium Lvl) 8.0 8.5-10.5 [place] 468413-02-28 09:49:00 Test Item Value Reference Range Interpretation Comments AGAP (test code = AGAP) 5.1 10.0-20.0 [place] 468413-02-28 09:49:00 Test Item Value Reference Range Interpretation Comments eGFR (test code = eGFR) 19 [place] 647753-02-28 09:49:00 Test Item Value Reference Range Interpretation Comments Glucose Lvl (test code = Glucose Lvl) 93 70-99 [facility]bergXfkmhecZXJOPXFJR5018-04-66 09:49:00 Test Item Value Reference Range Interpretation Comments BUN (test code = BUN) 30 7-22 [facility] KlebergOzhwdxwUCMVQWEBX9525-46-62 09:49:00 Test Item Value Reference Range Interpretation Comments Creatinine Lvl (test code = Creatinine 2.50 0.50-1.40 Lvl) [facility] KlebergBoxyhqtOXHXONUJW6398-94-69 09:49:00 Test Item Value Reference Range Interpretation Comments Sodium Lvl (test code = Sodium Lvl) 138 135-145 [facility] KlebergIchentpLQXDYLSSO6484-25-59 09:49:00 Test Item Value Reference Range Interpretation Comments Potassium Lvl (test code = Potassium 5.1 3.5-5.1 Lvl) [facility] KlebergRjcwpghDWXRDLRAF8543-96-16 09:49:00 Test Item Value Reference Range Interpretation Comments Chloride Lvl (test code = Chloride Lvl) 108 95-109 [facility] KlebergGqenoeyCEGVEPLFG3990-36-76 09:49:00 Test Item Value Reference Range Interpretation Comments CO2 (test code = CO2) 30 24-32 [facility] KlebergRbgepajBCHSXJQYJ6274-13-86 09:49:00 Test Item Value Reference Range Interpretation Comments Calcium Lvl (test code = Calcium Lvl) 8.0 8.5-10.5 [facility] KlebergKeocbitTMTHTNSQE6729-97-39 09:49:00 Test Item Value Reference Range Interpretation Comments AGAP (test code = AGAP) 5.1 10.0-20.0 [facility] KlebergBqowfhxEQDDDNYUZ6536-59-43 09:49:00 Test Item Value Reference Range Interpretation Comments eGFR (test code = eGFR) 19 [facility]AllenYisijttDMILGYCWCA8040-37-31 09:49:00 Test Item Value Reference Range Interpretation Comments Segs (test code = Segs) 49.2 45.0-75.0 [facility]AllenAgfcezkEWSREKHSEB4279-24-06 09:49:00 Test Item Value Reference Range Interpretation Comments Lymphocytes (test code = Lymphocytes) 33.0 20.0-40.0 [facility]AllenKwiokxgXNLPEMXMBV3341-35-61 09:49:00 Test Item Value Reference Range Interpretation Comments Monocytes (test code = Monocytes) 10.5 2.0-12.0 [place] 391173-02-28 09:49:00 Test Item Value Reference Range Interpretation Comments Eosinophils (test code = 6.6 See_Comment [A utomated message] The Eosinophils) system which ge nerated this result tra nsmitted reference range : <=4.0. The reference r christiano was not used to int erpret this result as normal/abnormal . [place] 391173-02-28 09:49:00 Test Item Value Reference Range Interpretation Comments Basophils (test code = 0.7 See_Comment [Aut omated message] The Basophils) system which ge nerated this result tra nsmitted reference range : <=1.0. The reference r christiano was not used to int erpret this result as normal/abnormal . [place] 391173-02-28 09:49:00 Test Item Value Reference Range Interpretation Comments Neutrophils # (test code = Neutrophils 3.0 1.5-8.1 #) [place] 391173-02-28 09:49:00 Test Item Value Reference Range Interpretation Comments Lymphocytes # (test code = Lymphocytes 2.0 1.0-5.5 #) [place] 391173-02-28 09:49:00 Test Item Value Reference Range Interpretation Comments Monocytes # (test code 0.7 See_Comment [Aut omated message] The = Monocytes #) system which generated this result tra nsmitted reference range : <=0.8. The reference r christiano was not used to int erpret this result as normal/abnormal . [facility] McAllenPolhdasVSUYZCVZXU4605-96-71 09:49:00 Test Item Value Reference Range Interpretation Comments Eosinophils # (test code 0.4 See_Comment [A utomated message] The = Eosinophils #) system whic h generated this result tra nsmitted reference range : <=0.5. The reference r christiano was not used to int erpret this result as normal/abnormal . [facility] McAllenUiwzyqmSIDAAGYYEK8340-05-15 09:49:00 Test Item Value Reference Range Interpretation Comments WBC (test code = WBC) 6.2 3.7-10.4 [place] 391173-02-28 09:49:00 Test Item Value Reference Range Interpretation Comments RBC (test code = RBC) 3.06 4.20-5.40 [place] 391173-02-28 09:49:00 Test Item Value Reference Range Interpretation Comments Hgb (test code = Hgb) 9.2 12.0-16.0 [facility] McAllenOockjxfUKMXVRVWFQ1587-33-28 09:49:00 Test Item Value Reference Range Interpretation Comments Hct (test code = Hct) 28.0 36.0-48.0 [facility] McAllenUijvkahDRHZLGGXPZ7235-77-36 09:49:00 Test Item Value Reference Range Interpretation Comments MCV (test code = MCV) 91.5 80.0-98.0 [facility] McAllenBxsswhwIKMJBFZVDK1210-73-62 09:49:00 Test Item Value Reference Range Interpretation Comments MCH (test code = MCH) 30.0 pg 27.0-31.0 [facility] McAllenXsyddmiJLHEHYYVVY1457-86-38 09:49:00 Test Item Value Reference Range Interpretation Comments MCHC (test code = MCHC) 32.7 32.0-36.0 [facility] McAllenEvueczpZVMDHTFGAB5663-20-60 09:49:00 Test Item Value Reference Range Interpretation Comments RDW (test code = RDW) 14.1 11.5-14.5 [facility] McAllenDyvkizjYOEHFAHOMJ7230-24-10 09:49:00 Test Item Value Reference Range Interpretation Comments Platelet (test code = Platelet) 136 133-450 [facility] McAllenBunfhcnADDVFGEWGC2359-37-11 09:49:00 Test Item Value Reference Range Interpretation Comments MPV (test code = MPV) 7.7 7.4-10.4 [place] 391173-02-28 09:49:00 Test Item Value Reference Range Interpretation Comments Segs (test code = Segs) 49.2 45.0-75.0 [facility] McAllenDbdylhdBFCGFETCOU8028-34-96 09:49:00 Test Item Value Reference Range Interpretation Comments Lymphocytes (test code = Lymphocytes) 33.0 20.0-40.0 [place] 391173-02-28 09:49:00 Test Item Value Reference Range Interpretation Comments Monocytes (test code = Monocytes) 10.5 2.0-12.0 [place] 391173-02-28 09:49:00 Test Item Value Reference Range Interpretation Comments Eosinophils (test code = 6.6 See_Comment [A utomated message] The Eosinophils) system which ge nerated this result tra nsmitted reference range : <=4.0. The reference r christiano was not used to int erpret this result as normal/abnormal . [place] 391173-02-28 09:49:00 Test Item Value Reference Range Interpretation Comments Basophils (test code = 0.7 See_Comment [Aut omated message] The Basophils) system which ge nerated this result tra nsmitted reference range : <=1.0. The reference r christiano was not used to int erpret this result as normal/abnormal . [place] 391173-02-28 09:49:00 Test Item Value Reference Range Interpretation Comments Neutrophils # (test code = Neutrophils 3.0 1.5-8.1 #) [facility] McAllenBxdnaggMYHXKZFUXZ6327-58-47 09:49:00 Test Item Value Reference Range Interpretation Comments Lymphocytes # (test code = Lymphocytes 2.0 1.0-5.5 #) [place] [address]-02-28 09:49:00 Test Item Value Reference Range Interpretation Comments Monocytes # (test code 0.7 See_Comment [Aut omated message] The = Monocytes #) system which generated this result tra nsmitted reference range : <=0.8. The reference r christiano was not used to int erpret this result as normal/abnormal . [facility] McAllenMdttvlkPCTSIFIMNH6348-53-36 09:49:00 Test Item Value Reference Range Interpretation Comments Eosinophils # (test code 0.4 See_Comment [A utomated message] The = Eosinophils #) system whic h generated this result tra nsmitted reference range : <=0.5. The reference r christiano was not used to int erpret this result as normal/abnormal . [facility] McAllenQylinacLYTTQYYUDR0692-90-73 09:49:00 Test Item Value Reference Range Interpretation Comments WBC (test code = WBC) 6.2 3.7-10.4 [place] [address]-02-28 09:49:00 Test Item Value Reference Range Interpretation Comments RBC (test code = RBC) 3.06 4.20-5.40 [place] [address]-02-28 09:49:00 Test Item Value Reference Range Interpretation Comments Hgb (test code = Hgb) 9.2 12.0-16.0 [place] [address]-02-28 09:49:00 Test Item Value Reference Range Interpretation Comments Hct (test code = Hct) 28.0 36.0-48.0 [place] [address]-02-28 09:49:00 Test Item Value Reference Range Interpretation Comments MCV (test code = MCV) 91.5 80.0-98.0 [place] [address]-02-28 09:49:00 Test Item Value Reference Range Interpretation Comments MCH (test code = MCH) 30.0 pg 27.0-31.0 [place] [address]-02-28 09:49:00 Test Item Value Reference Range Interpretation Comments MCHC (test code = MCHC) 32.7 32.0-36.0 [place] [address]-02-28 09:49:00 Test Item Value Reference Range Interpretation Comments RDW (test code = RDW) 14.1 11.5-14.5 [place] [address]-02-28 09:49:00 Test Item Value Reference Range Interpretation Comments Platelet (test code = Platelet) 136 133-450 [place] [address]-02-28 09:49:00 Test Item Value Reference Range Interpretation Comments MPV (test code = MPV) 7.7 7.4-10.4 [place] 468413-02-28 09:49:00 Test Item Value Reference Range Interpretation Comments Glucose Lvl (test code = Glucose Lvl) 93 70-99 [place] 468413-02-28 09:49:00 Test Item Value Reference Range Interpretation Comments BUN (test code = BUN) 30 7-22 [place] 468413-02-28 09:49:00 Test Item Value Reference Range Interpretation Comments Creatinine Lvl (test code = Creatinine 2.50 0.50-1.40 Lvl) [place] 468413-02-28 09:49:00 Test Item Value Reference Range Interpretation Comments Sodium Lvl (test code = Sodium Lvl) 138 135-145 [place] 468413-02-28 09:49:00 Test Item Value Reference Range Interpretation Comments Potassium Lvl (test code = Potassium 5.1 3.5-5.1 Lvl) [place] 468413-02-28 09:49:00 Test Item Value Reference Range Interpretation Comments Chloride Lvl (test code = Chloride Lvl) 108 95-109 [place] 468413-02-28 09:49:00 Test Item Value Reference Range Interpretation Comments CO2 (test code = CO2) 30 24-32 [facility]2023-02-28 09:49:00 Test Item Value Reference Range Interpretation Comments Calcium Lvl (test code = Calcium Lvl) 8.0 8.5-10.5 [facility]2023-02-28 09:49:00 Test Item Value Reference Range Interpretation Comments AGAP (test code = AGAP) 5.1 10.0-20.0 [facility]2023-02-28 09:49:00 Test Item Value Reference Range Interpretation Comments eGFR (test code = eGFR) 19 [facility]bergCmeewndTFHHCMQQU2824-58-09 09:49:00 Test Item Value Reference Range Interpretation Comments Glucose Lvl (test code = Glucose Lvl) 93 70-99 [facility]bergKchydcgQRAGMDJNB3956-20-31 09:49:00 Test Item Value Reference Range Interpretation Comments BUN (test code = BUN) 30 7- [facility] KlebergUljvlzgCHMZDYWSW3289-65-38 09:49:00 Test Item Value Reference Range Interpretation Comments Creatinine Lvl (test code = Creatinine 2.50 0.50-1.40 Lvl) [facility] KlebergHwzpuzzWKDBRMZSQ8154-48-98 09:49:00 Test Item Value Reference Range Interpretation Comments Sodium Lvl (test code = Sodium Lvl) 138 135-145 [facility] KlebergFumuqaaLLBPKLFGV8618-32-47 09:49:00 Test Item Value Reference Range Interpretation Comments Potassium Lvl (test code = Potassium 5.1 3.5-5.1 Lvl) [facility] KlebergRoqqszxPUOJDBSTS0099-14-66 09:49:00 Test Item Value Reference Range Interpretation Comments Chloride Lvl (test code = Chloride Lvl) 108 95-109 [place] 647753-02-28 09:49:00 Test Item Value Reference Range Interpretation Comments CO2 (test code = CO2) 30 24-32 [facility] KlebergUichnhkEQGYOQEZK9052-74-20 09:49:00 Test Item Value Reference Range Interpretation Comments Calcium Lvl (test code = Calcium Lvl) 8.0 8.5-10.5 [facility]bergPjgvjguQZFUXSUTN7432-17-08 09:49:00 Test Item Value Reference Range Interpretation Comments AGAP (test code = AGAP) 5.1 10.0-20.0 [place] 647753-02-28 09:49:00 Test Item Value Reference Range Interpretation Comments eGFR (test code = eGFR) 19 [place] 391173-02-28 09:49:00 Test Item Value Reference Range Interpretation Comments Segs (test code = Segs) 49.2 45.0-75.0 [place] [address]-02-28 09:49:00 Test Item Value Reference Range Interpretation Comments Lymphocytes (test code = Lymphocytes) 33.0 20.0-40.0 [place] [address]-02-28 09:49:00 Test Item Value Reference Range Interpretation Comments Monocytes (test code = Monocytes) 10.5 2.0-12.0 [place] [address]-02-28 09:49:00 Test Item Value Reference Range Interpretation Comments Eosinophils (test code = 6.6 See_Comment [A utomated message] The Eosinophils) system which ge nerated this result tra nsmitted reference range : <=4.0. The reference r christiano was not used to int erpret this result as normal/abnormal . [place] 391173-02-28 09:49:00 Test Item Value Reference Range Interpretation Comments Basophils (test code = 0.7 See_Comment [Aut omated message] The Basophils) system which ge nerated this result tra nsmitted reference range : <=1.0. The reference r christiano was not used to int erpret this result as normal/abnormal . [facility]pegdnnCZHRIYRWHM6259-46-93 09:49:00 Test Item Value Reference Range Interpretation Comments Neutrophils # (test code = Neutrophils 3.0 1.5-8.1 #) [place] 391173-02-28 09:49:00 Test Item Value Reference Range Interpretation Comments Lymphocytes # (test code = Lymphocytes 2.0 1.0-5.5 #) [place] 391173-02-28 09:49:00 Test Item Value Reference Range Interpretation Comments Monocytes # (test code 0.7 See_Comment [Aut omated message] The = Monocytes #) system which generated this result tra nsmitted reference range : <=0.8. The reference r christiano was not used to int erpret this result as normal/abnormal . [place] 391173-02-28 09:49:00 Test Item Value Reference Range Interpretation Comments Eosinophils # (test code 0.4 See_Comment [A utomated message] The = Eosinophils #) system Vinobo[employer] h generated this result tra nsmitted reference range : <=0.5. The reference r christiano was not used to int erpret this result as normal/abnormal . [facility]AllenVbctvzsTZEQBQLWLA7001-04-46 09:49:00 Test Item Value Reference Range Interpretation Comments WBC (test code = WBC) 6.2 3.7-10.4 [facility]AllenYdkjwohAQZUUXVBDD0407-11-45 09:49:00 Test Item Value Reference Range Interpretation Comments RBC (test code = RBC) 3.06 4.20-5.40 [place] 391173-02-28 09:49:00 Test Item Value Reference Range Interpretation Comments Hgb (test code = Hgb) 9.2 12.0-16.0 [place] 391173-02-28 09:49:00 Test Item Value Reference Range Interpretation Comments Hct (test code = Hct) 28.0 36.0-48.0 [facility] McAllenIavixfwYTEUBAVSDB7603-58-77 09:49:00 Test Item Value Reference Range Interpretation Comments MCV (test code = MCV) 91.5 80.0-98.0 [facility] McAllenEyieoqsQKWLKPPNKB3554-20-36 09:49:00 Test Item Value Reference Range Interpretation Comments MCH (test code = MCH) 30.0 pg 27.0-31.0 [facility] McAllenMeghcxwKQPPUVPSXM4221-17-46 09:49:00 Test Item Value Reference Range Interpretation Comments MCHC (test code = MCHC) 32.7 32.0-36.0 [facility] McAllenWctjbjpYNFIFFUIYT4021-19-17 09:49:00 Test Item Value Reference Range Interpretation Comments RDW (test code = RDW) 14.1 11.5-14.5 [place] 391173-02-28 09:49:00 Test Item Value Reference Range Interpretation Comments Platelet (test code = Platelet) 136 133-450 [facility] McAllenIkhjopvULTJWZZMDH0535-03-72 09:49:00 Test Item Value Reference Range Interpretation Comments MPV (test code = MPV) 7.7 7.4-10.4 [place] 391173-02-28 09:49:00 Test Item Value Reference Range Interpretation Comments Segs (test code = Segs) 49.2 45.0-75.0 [place] 391173-02-28 09:49:00 Test Item Value Reference Range Interpretation Comments Lymphocytes (test code = Lymphocytes) 33.0 20.0-40.0 [place] 391173-02-28 09:49:00 Test Item Value Reference Range Interpretation Comments Monocytes (test code = Monocytes) 10.5 2.0-12.0 [place] 391173-02-28 09:49:00 Test Item Value Reference Range Interpretation Comments Eosinophils (test code = 6.6 See_Comment [A utomated message] The Eosinophils) system which ge nerated this result tra nsmitted reference range : <=4.0. The reference r christiano was not used to int erpret this result as normal/abnormal . [place] 391173-02-28 09:49:00 Test Item Value Reference Range Interpretation Comments Basophils (test code = 0.7 See_Comment [Aut omated message] The Basophils) system which ge nerated this result tra nsmitted reference range : <=1.0. The reference r christiano was not used to int erpret this result as normal/abnormal . [facility] McAllenTmtdksjQYVLCUFCFB9797-75-33 09:49:00 Test Item Value Reference Range Interpretation Comments Neutrophils # (test code = Neutrophils 3.0 1.5-8.1 #) [facility] McAllenEhgvbljXCWQUZHSCL0024-23-37 09:49:00 Test Item Value Reference Range Interpretation Comments Lymphocytes # (test code = Lymphocytes 2.0 1.0-5.5 #) [facility] McAllenFvbpnaqZYIRBPLKMJ4915-47-11 09:49:00 Test Item Value Reference Range Interpretation Comments Monocytes # (test code 0.7 See_Comment [Aut omated message] The = Monocytes #) system which generated this result tra nsmitted reference range : <=0.8. The reference r christiano was not used to int erpret this result as normal/abnormal . [facility] McAllenKyriiqjJAOOFZPZHH5214-99-03 09:49:00 Test Item Value Reference Range Interpretation Comments Eosinophils # (test code 0.4 See_Comment [A utomated message] The = Eosinophils #) system whic h generated this result tra nsmitted reference range : <=0.5. The reference r christiano was not used to int erpret this result as normal/abnormal . [place] [address]-02-28 09:49:00 Test Item Value Reference Range Interpretation Comments WBC (test code = WBC) 6.2 3.7-10.4 [place] [address]-02-28 09:49:00 Test Item Value Reference Range Interpretation Comments RBC (test code = RBC) 3.06 4.20-5.40 [place] [address]-02-28 09:49:00 Test Item Value Reference Range Interpretation Comments Hgb (test code = Hgb) 9.2 12.0-16.0 [place] [address]-02-28 09:49:00 Test Item Value Reference Range Interpretation Comments Hct (test code = Hct) 28.0 36.0-48.0 [place] [address]-02-28 09:49:00 Test Item Value Reference Range Interpretation Comments MCV (test code = MCV) 91.5 80.0-98.0 [place] [address]-02-28 09:49:00 Test Item Value Reference Range Interpretation Comments MCH (test code = MCH) 30.0 pg 27.0-31.0 [place] [address]-02-28 09:49:00 Test Item Value Reference Range Interpretation Comments MCHC (test code = MCHC) 32.7 32.0-36.0 [place] [address]-02-28 09:49:00 Test Item Value Reference Range Interpretation Comments RDW (test code = RDW) 14.1 11.5-14.5 [place] [address]-02-28 09:49:00 Test Item Value Reference Range Interpretation Comments Platelet (test code = Platelet) 136 133-450 [place] [address]-02-28 09:49:00 Test Item Value Reference Range Interpretation Comments MPV (test code = MPV) 7.7 7.4-10.4 [place] 468413-02-28 09:49:00 Test Item Value Reference Range Interpretation Comments Glucose Lvl (test code = Glucose Lvl) 93 70-99 [place] 468413-02-28 09:49:00 Test Item Value Reference Range Interpretation Comments BUN (test code = BUN) 30 7-22 [place] 468413-02-28 09:49:00 Test Item Value Reference Range Interpretation Comments Creatinine Lvl (test code = Creatinine 2.50 0.50-1.40 Lvl) [place] 468413-02-28 09:49:00 Test Item Value Reference Range Interpretation Comments Sodium Lvl (test code = Sodium Lvl) 138 135-145 [place] 468413-02-28 09:49:00 Test Item Value Reference Range Interpretation Comments Potassium Lvl (test code = Potassium 5.1 3.5-5.1 Lvl) [place] 468413-02-28 09:49:00 Test Item Value Reference Range Interpretation Comments Chloride Lvl (test code = Chloride Lvl) 108 95-109 [place] 468413-02-28 09:49:00 Test Item Value Reference Range Interpretation Comments CO2 (test code = CO2) 30 24-32 [place] 468413-02-28 09:49:00 Test Item Value Reference Range Interpretation Comments Calcium Lvl (test code = Calcium Lvl) 8.0 8.5-10.5 [place] 468413-02-28 09:49:00 Test Item Value Reference Range Interpretation Comments AGAP (test code = AGAP) 5.1 10.0-20.0 [place] 468413-02-28 09:49:00 Test Item Value Reference Range Interpretation Comments eGFR (test code = eGFR) 19 [place] 647753-02-28 09:49:00 Test Item Value Reference Range Interpretation Comments Glucose Lvl (test code = Glucose Lvl) 93 70-99 [place] 647753-02-28 09:49:00 Test Item Value Reference Range Interpretation Comments BUN (test code = BUN) 30 7-22 [place] 647753-02-28 09:49:00 Test Item Value Reference Range Interpretation Comments Creatinine Lvl (test code = Creatinine 2.50 0.50-1.40 Lvl) [place] 647753-02-28 09:49:00 Test Item Value Reference Range Interpretation Comments Sodium Lvl (test code = Sodium Lvl) 138 135-145 [place] 647753-02-28 09:49:00 Test Item Value Reference Range Interpretation Comments Potassium Lvl (test code = Potassium 5.1 3.5-5.1 Lvl) [place] 647753-02-28 09:49:00 Test Item Value Reference Range Interpretation Comments Chloride Lvl (test code = Chloride Lvl) 108 95-109 [facility]pyrsuqNKRDXBHGG9280[facility]74-75 09:49:00 Test Item Value Reference Range Interpretation Comments CO2 (test code = CO2) 30 24-32 [facility] KlebergRolmdatJYVDFIMIU9229-12-12 09:49:00 Test Item Value Reference Range Interpretation Comments Calcium Lvl (test code = Calcium Lvl) 8.0 8.5-10.5 [facility] KlebergKbzmhqgQKLSKWXWA6567-79-86 09:49:00 Test Item Value Reference Range Interpretation Comments AGAP (test code = AGAP) 5.1 10.0-20.0 [facility]bergRdlmvthWBEWVJHYT5213-77-03 09:49:00 Test Item Value Reference Range Interpretation Comments eGFR (test code = eGFR) 19 [facility]AllenJohqflpGEMRWTZAEN8993-08-33 09:49:00 Test Item Value Reference Range Interpretation Comments Segs (test code = Segs) 49.2 45.0-75.0 [facility] McAllenTdadjiuBYFSUYKCUI7892-58-49 09:49:00 Test Item Value Reference Range Interpretation Comments Lymphocytes (test code = Lymphocytes) 33.0 20.0-40.0 [facility]AllenIpoqxpbWFWJJJHIXL4367-94-95 09:49:00 Test Item Value Reference Range Interpretation Comments Monocytes (test code = Monocytes) 10.5 2.0-12.0 [facility] McAllenAyncxsiEBPADRNEZD1741-28-93 09:49:00 Test Item Value Reference Range Interpretation Comments Eosinophils (test code = 6.6 See_Comment [A utomated message] The Eosinophils) system which ge nerated this result tra nsmitted reference range : <=4.0. The reference r christiano was not used to int erpret this result as normal/abnormal . [place] 65356023-02-27 14:44:19 Test Item Value Reference Range Interpretation [...] Additional severe spinal canal narrowing at C6-7. [facility]XUKX7766[facility]87-59 14:44:19 Test Item Value Reference Range Interpretation [...] Additional severe spinal canal narrowing at C6-7. [facility] CgeihrfIQOYWA2888-52-29 14:44:19 Test Item Value Reference Range Interpretation [...] Additional severe spinal canal narrowing [facility] C6-7. [facility]zt[facility]rslFCVPOB3998[facility]-50 14:44:19 Test Item Value Reference Range Interpretation [...] Additional severe spinal canal narrowing at C6-7. [facility] CenterPeigbxgAVWIZW3558-03-00 14:44:19 Test Item Value Reference Range Interpretation [...] Additional severe spinal canal narrowing at C6-7. [facility] CenterWsihvqnGEAOFC4502-30-57 14:44:19 Test Item Value Reference Range Interpretation [...] Additional severe spinal canal narrowing at C6-7. [facility] CenterRkwdflwHOHVLZ1839-79-54 14:44:19 Test Item Value Reference Range Interpretation [...] Additional severe spinal canal narrowing at C6-7. [facility] UusgqycGQJJCM4954-31-40 14:44:19 Test Item Value Reference Range Interpretation [...] Additional severe spinal canal narrowing at C6-7. [facility] CenterViuvizqMXZOFK8082-14-10 14:44:19 Test Item Value Reference Range Interpretation [...] Additional severe spinal canal narrowing at C6-7. [facility] CenterEjomdmgSWKQADIQDN3293-65-63 10:40:00 Test Item Value Reference Range Interpretation Comments Coronavirus (COVID-19) Not Detected (11/27/22 JONATHAN (test code = 4:40 AM) Coronavirus (COVID-19) JONATHAN) [facility] CenterAxatkcqZFFJPDUJHE8136-68-04 10:40:00 Test Item Value Reference Range Interpretation Comments Coronavirus (COVID-19) Not Detected (11/27/22 JONATHAN (test code = 4:40 AM) Coronavirus (COVID-19) JONATHAN) [facility] CenterQetcqmrFDEXZHWIKD9499-18-68 10:40:00 Test Item Value Reference Range Interpretation Comments Coronavirus (COVID-19) Not Detected (11/27/22 JONATHAN (test code = 4:40 AM) Coronavirus (COVID-19) JONATHAN) [place] [address]-02-27 10:40:00 Test Item Value Reference Range Interpretation Comments Coronavirus (COVID-19) Not Detected (11/27/22 JONATHAN (test code = 4:40 AM) Coronavirus (COVID-19) JONATHAN) [facility] CenterOacppuaAFBTXRJVBN9859-78-08 10:40:00 Test Item Value Reference Range Interpretation Comments Coronavirus (COVID-19) Not Detected (11/27/22 JONATHAN (test code = 4:40 AM) Coronavirus (COVID-19) JONATHAN) [place] [address]-02-27 10:40:00 Test Item Value Reference Range Interpretation Comments Coronavirus (COVID-19) Not Detected (11/27/22 JONTAHAN (test code = 4:40 AM) Coronavirus (COVID-19) JONATHAN) [place] [address]-02-27 10:40:00 Test Item Value Reference Range Interpretation Comments Coronavirus (COVID-19) Not Detected (11/27/22 JONATHAN (test code = 4:40 AM) Coronavirus (COVID-19) JONATHAN) [place] [address]-02-27 10:40:00 Test Item Value Reference Range Interpretation Comments Coronavirus (COVID-19) Not Detected (11/27/22 JONATHAN (test code = 4:40 AM) Coronavirus (COVID-19) JONATHAN) [place] [address]-02-27 10:40:00 Test Item Value Reference Range Interpretation Comments Coronavirus (COVID-19) Not Detected (11/27/22 JONATHAN (test code = 4:40 AM) Coronavirus (COVID-19) JONATHAN) [place] [address]-02-27 10:40:00 Test Item Value Reference Range Interpretation Comments Coronavirus (COVID-19) Not Detected (11/27/22 JONATHAN (test code = 4:40 AM) Coronavirus (COVID-19) JONATHAN) [place] [address]-02-27 10:40:00 Test Item Value Reference Range Interpretation Comments Coronavirus (COVID-19) Not Detected (11/27/22 JONATHAN (test code = 4:40 AM) Coronavirus (COVID-19) JONATHAN) [place] [address]-02-27 10:40:00 Test Item Value Reference Range Interpretation Comments Coronavirus (COVID-19) Not Detected (11/27/22 JONATHAN (test code = 4:40 AM) Coronavirus (COVID-19) JONATHAN) [place] [address]-02-27 10:40:00 Test Item Value Reference Range Interpretation Comments Coronavirus (COVID-19) Not Detected (11/27/22 JONATHAN (test code = 4:40 AM) Coronavirus (COVID-19) JONATHAN) [place] [address]-02-27 10:40:00 Test Item Value Reference Range Interpretation Comments Coronavirus (COVID-19) Not Detected (11/27/22 JONATHAN (test code = 4:40 AM) Coronavirus (COVID-19) JONATHAN) [facility] CenterSmqqmeuQVQALHKGGH9403-34-14 10:40:00 Test Item Value Reference Range Interpretation Comments Coronavirus (COVID-19) Not Detected (11/27/22 JONATHAN (test code = 4:40 AM) Coronavirus (COVID-19) JONATHAN) [facility] CenterSxsotbkQIRZVADDQM3596-45-44 10:40:00 Test Item Value Reference Range Interpretation Comments Coronavirus (COVID-19) Not Detected (11/27/22 JONATHAN (test code = 4:40 AM) Coronavirus (COVID-19) JONATHAN) [facility] CenterGynhfclQIEZDVTZKA6055-16-98 10:40:00 Test Item Value Reference Range Interpretation Comments Coronavirus (COVID-19) Not Detected (11/27/22 JONATHAN (test code = 4:40 AM) Coronavirus (COVID-19) JONATHAN) [facility] CenterCsnzeydZONAMUZTCE5130-79-75 10:40:00 Test Item Value Reference Range Interpretation Comments Coronavirus (COVID-19) Not Detected (11/27/22 JONATHAN (test code = 4:40 AM) Coronavirus (COVID-19) JONATHAN) [place] 65356023-02-27 07:58:03 Test Item Value Reference Range Interpretation [...] at 11/27/2022 2:31 by Urbano Ashton [facility]SxnmbqoEFHVCA7309-64-30 07:58:03 Test Item Value Reference Range Interpretation [...] at 11/27/2022 2:31 by [facility]rbano Ashton [facility] CenterRqjoveoWAHENE1508-25-23 07:58:03 Test Item Value Reference Range Interpretation [...] at 11/27/2022 2:31 by Urbano Ashton MD [facility] CenterDpdwmglVVQSFT6421-34-11 07:58:03 Test Item Value Reference Range Interpretation [...] at 11/27/2022 2:31 by Urbano Ashton MD [facility] HospitalMooslexBILBVZ6587-87-27 07:58:03 Test Item Value Reference Range Interpretation [...] at 11/27/2022 2:31 by Urbano Ashton MD [facility] HospitalCqdyijaIRNVOE5789-22-65 07:58:03 Test Item Value Reference Range Interpretation [...] at 11/27/2022 2:31 by Urbano Ashton MD [facility] HospitalQblhytsFZVTID1180-89-74 07:58:03 Test Item Value Reference Range Interpretation [...] at 11/27/2022 2:31 by Urbano Ashton MD [facility] HospitalKssauvuFDWIKV2101-19-47 07:58:03 Test Item Value Reference Range Interpretation [...] at 11/27/2022 2:31 by Urbano Ashton MD [facility] HospitalPilssfnBFOQRK4767-25-47 07:58:03 Test Item Value Reference Range Interpretation [...] at 11/27/2022 2:31 by Urbano Ashton MD [facility] [employer] [id number] 07:22:00 Test Item Value Reference Range Interpretation Comments ABO/Rh (test code = ABO/Rh) O POS [facility] [employer] XVLKZRR9743-56-00 07:22:00 Test Item Value Reference Range Interpretation Comments Antibody Scrn (test Negative (11/27/22 1:22 code = Antibody Scrn) AM) [facility] [employer] ZURANAW1507-64-78 07:22:00 Test Item Value Reference Range Interpretation Comments ABO/Rh (test code = ABO/Rh) O POS [facility] [employer] [id number] 07:22:00 Test Item Value Reference Range Interpretation Comments Antibody Scrn (test Negative (11/27/22 1:22 code = Antibody Scrn) AM) [facility] [employer] [id number] 07:22:00 Test Item Value Reference Range Interpretation Comments ABO/Rh (test code = ABO/Rh) O POS [facility] [employer] [id number] 07:22:00 Test Item Value Reference Range Interpretation Comments Antibody Scrn (test Negative (11/27/22 1:22 code = Antibody Scrn) AM) [facility] [employer] [id number] 07:22:00 Test Item Value Reference Range Interpretation Comments ABO/Rh (test code = ABO/Rh) [facility] OIINNGP5504-64-39 07:22:00 Test Item Value Reference Range Interpretation Comments Antibody Scrn (test Negative (11/27/22 1:22 code = Antibody Scrn) AM) [facility] [employer] [id number] 07:22:00 Test Item Value Reference Range Interpretation Comments ABO/Rh (test code = ABO/Rh) O [facility] [employer] [id number] 07:22:00 Test Item Value Reference Range Interpretation Comments Antibody Scrn (test Negative (11/27/22 1:22 code = Antibody Scrn) AM) [facility] [facility] [employer] [id number] 07:22:00 Test Item Value Reference Range Interpretation Comments ABO/Rh (test code = ABO/Rh) [facility] [id number] 07:22:00 Test Item Value Reference Range Interpretation Comments Antibody Scrn (test Negative (11/27/22 1:22 code = Antibody Scrn) AM) [facility] [employer] [id number] 07:22:00 Test Item Value Reference Range Interpretation Comments ABO/Rh (test code = ABO/Rh) O [facility] [employer] [id number] 07:22:00 Test Item Value Reference Range Interpretation Comments Antibody Scrn (test Negative (11/27/22 1:22 code = Antibody Scrn) AM) [facility] [employer] [id number] 07:22:00 Test Item Value Reference Range Interpretation Comments ABO/Rh (test code = ABO/Rh) O [facility] [employer] [id number] 07:22:00 Test Item Value Reference Range Interpretation Comments Antibody Scrn (test Negative (11/27/22 1:22 code = Antibody Scrn) AM) [facility] [id number] 07:22:00 Test Item Value Reference Range Interpretation Comments ABO/Rh (test code = ABO/Rh) O [facility] [employer] [id number] 07:22:00 Test Item Value Reference Range Interpretation Comments Antibody Scrn (test Negative (11/27/22 1:22 code = Antibody Scrn) AM) [facility] [id number] 07:22:00 Test Item Value Reference Range Interpretation Comments ABO/Rh (test code = ABO/Rh) O POS [facility] [id number] 07:22:00 Test Item Value Reference Range Interpretation Comments Antibody Scrn (test Negative (11/27/22 1:22 code = Antibody Scrn) AM) [facility] [id number] 07:22:00 Test Item Value Reference Range Interpretation Comments ABO/Rh (test code = ABO/Rh) O [facility] [id number] 07:22:00 Test Item Value Reference Range Interpretation Comments Antibody Scrn (test Negative (11/27/22 1:22 code = Antibody Scrn) AM) [facility] [id number] 07:22:00 Test Item Value Reference Range Interpretation Comments ABO/Rh (test code = ABO/Rh) O [facility] [id number] 07:22:00 Test Item Value Reference Range Interpretation Comments Antibody Scrn (test Negative (11/27/22 1:22 code = Antibody Scrn) AM) [facility] [id number] 07:22:00 Test Item Value Reference Range Interpretation Comments ABO/Rh (test code = ABO/Rh) O [facility] [id number] 07:22:00 Test Item Value Reference Range Interpretation Comments Antibody Scrn (test Negative (11/27/22 1:22 code = Antibody Scrn) AM) [facility] [place] [id number] 07:22:00 Test Item Value Reference Range Interpretation Comments ABO/Rh (test code = ABO/Rh) O [facility] [id number] 07:22:00 Test Item Value Reference Range Interpretation Comments Antibody Scrn (test Negative (11/27/22 1:22 code = Antibody Scrn) AM) [facility] [place] [id number] 07:22:00 Test Item Value Reference Range Interpretation Comments ABO/Rh (test code = ABO/Rh) O POS [facility] [id number] 07:22:00 Test Item Value Reference Range Interpretation Comments Antibody Scrn (test Negative (11/27/22 1:22 code = Antibody Scrn) AM) [facility] [id number] 07:22:00 Test Item Value Reference Range Interpretation Comments ABO/Rh (test code = ABO/Rh) O POS [facility] [id number] 07:22:00 Test Item Value Reference Range Interpretation Comments Antibody Scrn (test Negative (11/27/22 1:22 code = Antibody Scrn) AM) [facility] [id number] 07:22:00 Test Item Value Reference Range Interpretation Comments ABO/Rh (test code = ABO/Rh) O POS [facility] [id number] 07:22:00 Test Item Value Reference Range Interpretation Comments Antibody Scrn (test Negative (11/27/22 1:22 code = Antibody Scrn) AM) [facility] [id number] 07:22:00 Test Item Value Reference Range Interpretation Comments ABO/Rh (test code = ABO/Rh) O [facility] [id number] 07:22:00 Test Item Value Reference Range Interpretation Comments Antibody Scrn (test Negative (11/27/22 1:22 code = Antibody Scrn) AM) [facility]LfrpugvHCCXID1317-03-46 06:55:28 Test Item Value Reference Range Interpretation Comments RADRPT (test code EXAM: CT CERVICAL SPINE = RADRPT) WITHOUT CONTRASTDATE: 11/27/2022 0:49INDICATION: Status post fall, pain after trauma. Following trauma transfer for higher level of care request for outside film interpretation CT cervical spine without contrast performed 11/26/2022 [facility] 2044 hours [facility]: None.TECHNIQUE: Volumetric CT of the cervical spine is acquired without contrast. Axial, coronal and sagittal images are provided. IV contrast: None.DLP: Refer to CT protocol formUT SECTION: ERFINDINGS: The spine is imaged from the skull base to the level of T2/T3.Retail Customer Service Representative: Noncontributory.Bones:There is generalized decreased bone mineral density.There [...] calcifications are present.6. Agree with outside report. [facility] CenterDrowepxBWMGVM5448-48-29 06:55:28 Test Item Value Reference Range Interpretation Comments RADRPT (test code EXAM: CT CERVICAL SPINE = RADRPT) WITHOUT CONTRASTDATE: 11/27/2022 0:49INDICATION: Status post fall, pain after trauma. Following trauma transfer for higher level of care request for outside film interpretation CT cervical spine without contrast performed 11/26/2022 at 2044 hours [facility] None.TECHNIQUE: Volumetric CT of the cervical spine is acquired without contrast. Axial, coronal and sagittal images are provided. IV contrast: None.DLP: Refer to CT protocol formUT SECTION: ERFINDINGS: The spine is imaged from the skull base to the level of T2/T3.Retail Customer Service Representative: Noncontributory.Bones:There is generalized decreased bone mineral density.There [...] calcifications are present.6. Agree with outside report. [facility] CenterErzgnhhQYJWGO6152-92-29 06:55:28 Test Item Value Reference Range Interpretation Comments RADRPT (test code EXAM: CT CERVICAL SPINE = RADRPT) WITHOUT CONTRASTDATE: 11/27/2022 0:49INDICATION: Status post fall, pain after trauma. Following trauma transfer for higher level of care request for outside film interpretation CT cervical spine without contrast performed 11/26/2022 at 2044 hours [facility] None.TECHNIQUE: Volumetric CT of the cervical spine is acquired without contrast. Axial, coronal and sagittal images are provided. IV contrast: None.DLP: Refer to CT protocol formUT SECTION: ERFINDINGS: The spine is imaged from the skull base to the level of T2/T3.Retail Customer Service Representative: Noncontributory.Bones:There is generalized decreased bone mineral density.There [...] calcifications are present.6. Agree with outside report. [facility] CenterHcejdnrMQWADT0827-68-91 06:55:28 Test Item Value Reference Range Interpretation Comments RADRPT (test code EXAM: CT CERVICAL SPINE = RADRPT) WITHOUT CONTRASTDATE: 11/27/2022 0:49INDICATION: Status post fall, pain after trauma. Following trauma transfer for higher level of care request for outside film interpretation CT cervical spine without contrast performed 11/26/2022 at 2044 hours [facility] None.TECHNIQUE: Volumetric CT of the cervical spine is acquired without contrast. Axial, coronal and sagittal images are provided. IV contrast: None.DLP: Refer to CT protocol formUT SECTION: ERFINDINGS: The spine is imaged from the skull base to the level of T2/T3.Retail Customer Service Representative: Noncontributory.Bones:There is generalized decreased bone mineral density.There [...] calcifications are present.6. Agree with outside report. [facility] CenterEdxandcVTONSS0603-18-93 06:55:28 Test Item Value Reference Range Interpretation Comments RADRPT (test code EXAM: CT CERVICAL SPINE = RADRPT) WITHOUT CONTRASTDATE: 11/27/2022 0:49INDICATION: Status post fall, pain after trauma. Following trauma transfer for higher level of care request for outside film interpretation CT cervical spine without contrast performed 11/26/2022 at 2044 hours [facility] None.TECHNIQUE: Volumetric CT of the cervical spine is acquired without contrast. Axial, coronal and sagittal images are provided. IV contrast: None.DLP: Refer to CT protocol formUT SECTION: ERFINDINGS: The spine is imaged from the skull base to the level of T2/T3.Retail Customer Service Representative: Noncontributory.Bones:There is generalized decreased bone mineral density.There [...] calcifications are present.6. Agree with outside report. [facility] CenterQarndliJRDZRV3827-14-28 06:55:28 Test Item Value Reference Range Interpretation Comments RADRPT (test code EXAM: CT CERVICAL SPINE = RADRPT) WITHOUT CONTRASTDATE: 11/27/2022 0:49INDICATION: Status post fall, pain after trauma. Following trauma transfer for higher level of care request for outside film interpretation CT cervical spine without contrast performed 11/26/2022 at 2044 hours [facility] None.TECHNIQUE: Volumetric CT of the cervical spine is acquired without contrast. Axial, coronal and sagittal images are provided. IV contrast: None.DLP: Refer to CT protocol formUT SECTION: ERFINDINGS: The spine is imaged from the skull base to the level of T2/T3.Retail Customer Service Representative: Noncontributory.Bones:There is generalized decreased bone mineral density.There [...] calcifications are present.6. Agree with outside report. [facility] CenterAxqavokHXFWJP8586-41-05 06:55:28 Test Item Value Reference Range Interpretation Comments RADRPT (test code EXAM: CT CERVICAL SPINE = RADRPT) WITHOUT CONTRASTDATE: 11/27/2022 0:49INDICATION: Status post fall, pain after trauma. Following trauma transfer for higher level of care request for outside film interpretation CT cervical spine without contrast performed 11/26/2022 at 2044 hours [facility] None.TECHNIQUE: Volumetric CT of the cervical spine is acquired without contrast. Axial, coronal and sagittal images are provided. IV contrast: None.DLP: Refer to CT protocol formUT SECTION: ERFINDINGS: The spine is imaged from the skull base to the level of T2/T3.Retail Customer Service Representative: Noncontributory.Bones:There is generalized decreased bone mineral density.There [...] calcifications are present.6. Agree with outside report. [facility] CenterRrkmazrGSGURK7084-94-45 06:55:28 Test Item Value Reference Range Interpretation Comments RADRPT (test code EXAM: CT CERVICAL SPINE = RADRPT) WITHOUT CONTRASTDATE: 11/27/2022 0:49INDICATION: Status post fall, pain after trauma. Following trauma transfer for higher level of care request for outside film interpretation CT cervical spine without contrast performed 11/26/2022 at 2044 hours [facility] None.TECHNIQUE: Volumetric CT of the cervical spine is acquired without contrast. Axial, coronal and sagittal images are provided. IV contrast: None.DLP: Refer to CT protocol formUT SECTION: ERFINDINGS: The spine is imaged from the skull base to the level of T2/T3.Retail Customer Service Representative: Noncontributory.Bones:There is generalized decreased bone mineral density.There [...] calcifications are present.6. Agree with outside report. [facility] CenterIyfzguzCBEYXF4918-83-41 06:55:28 Test Item Value Reference Range Interpretation Comments RADRPT (test code EXAM: CT CERVICAL SPINE = RADRPT) WITHOUT CONTRASTDATE: 11/27/2022 0:49INDICATION: Status post fall, pain after trauma. Following trauma transfer for higher level of care request for outside film interpretation CT cervical spine without contrast performed 11/26/2022 at 2044 hours [facility]: None.TECHNIQUE: Volumetric CT of the cervical spine is acquired without contrast. Axial, coronal and sagittal images are provided. IV contrast: None.DLP: Refer to CT protocol formUT SECTION: ERFINDINGS: The spine is imaged from the skull base to the level of T2/T3.Retail Customer Service Representative: Noncontributory.Bones:There is generalized decreased bone mineral density.There [...] calcifications are present.6. Agree with outside report. [place] 468413-02-27 06:27:00 Test Item Value Reference Range Interpretation Comments Glucose Lvl (test code = Glucose Lvl) 85 70-99 [place] 468413-02-27 06:27:00 Test Item Value Reference Range Interpretation Comments BUN (test code = BUN) 28 7-22 [place] 468413-02-27 06:27:00 Test Item Value Reference Range Interpretation Comments Creatinine Lvl (test code = Creatinine 2.19 0.50-1.40 Lvl) [place] 468413-02-27 06:27:00 Test Item Value Reference Range Interpretation Comments Sodium Lvl (test code = Sodium Lvl) 143 135-145 [place] 468413-02-27 06:27:00 Test Item Value Reference Range Interpretation Comments Potassium Lvl (test code = Potassium 4.3 3.5-5.1 Lvl) [place] 468413-02-27 06:27:00 Test Item Value Reference Range Interpretation Comments Chloride Lvl (test code = Chloride Lvl) 110 95-109 [place] 468413-02-27 06:27:00 Test Item Value Reference Range Interpretation Comments CO2 (test code = CO2) 24-32 [place] 468413-02-27 06:27:00 Test Item Value Reference Range Interpretation Comments Calcium Lvl (test code = Calcium Lvl) 8.1 8.5-10.5 [place] 468413-02-27 06:27:00 Test Item Value Reference Range Interpretation Comments AGAP (test code = AGAP) 10.3 10.0-20.0 [place] 468413-02-27 06:27:00 Test Item Value Reference Range Interpretation Comments eGFR (test code = eGFR) 22 [facility]2023-02-27 06:27:00 Test Item Value Reference Range Interpretation Comments Total Protein (test code = Total 6.6 6.4-8.4 Protein) [place] 468413-02-27 06:27:00 Test Item Value Reference Range Interpretation Comments Albumin Lvl (test code = Albumin Lvl) 3.0 3.5-5.0 [place] 468413-02-27 06:27:00 Test Item Value Reference Range Interpretation Comments Globulin (test code = Globulin) 3.6 2.7-4.2 [place] 468413-02-27 06:27:00 Test Item Value Reference Range Interpretation Comments A/G Ratio (test code = A/G Ratio) 0.8 1 0.7-1.6 [place] 468413-02-27 06:27:00 Test Item Value Reference Range Interpretation Comments ALANINE AMINOTRANSFERASE 21 See_Comment [A utomated message] (test code = ALANINE The sys tem which AMINOTRANSFERASE) generated this result transmitted ref erence range: <=65. Th e reference range was not used to int erpret this result as normal/abnormal . [facility]2023-02-27 06:27:00 Test Item Value Reference Range Interpretation Comments AST (test code = AST) 17 See_Comment [Auto mated message] The system which ge nerated this result transmit sheba reference range : <=37. The reference range was not used to interpr et this result as edy l/abnormal. [place] 468413-02-27 06:27:00 Test Item Value Reference Range Interpretation Comments Alk Phos (test code = Alk Phos) 84 39-136 [place] 468413-02-27 06:27:00 Test Item Value Reference Range Interpretation Comments Bili Total (test code = Bili Total) 0.3 0.2-1.3 [place] 468413-02-27 06:27:00 Test Item Value Reference Range Interpretation Comments Bili Direct (test code no gt See_Comment [Aut omated message] The = Bili Direct) system which generated this result tra nsmitted reference range : <=0.3. The reference r christiano was not used to int erpret this result as edy l/abnormal. [facility] CenterGluMetrics [id number] 06:27:00 Test Item Value Reference Range Interpretation Comments Bili Indirect Unable to See_Comment [Automated (test code = Bili Calculate message] T he system Indirect) which generated this result transmitted reference range : <=1.0. The reference range was not used to interpret this result as normal/abnormal . [facility]wayPlay[facility]Focus ALWFG3849-15-16 06:27:00 Test Item Value Reference Range Interpretation Comments Lactic Acid Lvl (test code = Lactic 0.5 0.5-2.2 Acid Lvl) [facility]bergNejnnecNPEODBWBB9369-23-82 06:27:00 Test Item Value Reference Range Interpretation Comments Total Protein (test code = Total 6.6 6.4-8.4 Protein) [facility] KlebergQgwceavNMNRVXPAI8486-01-40 06:27:00 Test Item Value Reference Range Interpretation Comments Albumin Lvl (test code = Albumin Lvl) 3.0 3.5-5.0 [facility] KlebergQtnfpuiPNBJMPJOP5374-53-04 06:27:00 Test Item Value Reference Range Interpretation Comments Globulin (test code = Globulin) 3.6 2.7-4.2 [place] 647753-02-27 06:27:00 Test Item Value Reference Range Interpretation Comments A/G Ratio (test code = A/G Ratio) 0.8 1 0.7-1.6 [place] 647753-02-27 06:27:00 Test Item Value Reference Range Interpretation Comments ALANINE AMINOTRANSFERASE 21 See_Comment [A utomated message] (test code = ALANINE The sys tem which AMINOTRANSFERASE) generated this result transmitted ref erence range: <=65. Th e reference range was not used to int erpret this result as normal/abnormal . [facility] CenterSlrrjszWCNGWYIWB7281-76-29 06:27:00 Test Item Value Reference Range Interpretation Comments AST (test code = AST) 17 See_Comment [Auto mated message] The system which ge nerated this result transmit sheba reference range : <=37. The reference range was not used to interpr et this result as edy l/abnormal. [facility] KlebergKghzucjVFQCZRVPP4172-19-89 06:27:00 Test Item Value Reference Range Interpretation Comments Alk Phos (test code = Alk Phos) 84 39-136 [facility] KlebergEfcbmcsTOFBWHICN4162-25-92 06:27:00 Test Item Value Reference Range Interpretation Comments Bili Total (test code = Bili Total) 0.3 0.2-1.3 [facility] KlebergEbelgwaRNPWCHOKB9096-29-62 06:27:00 Test Item Value Reference Range Interpretation Comments Bili Direct (test code no gt See_Comment [Aut omated message] The = Bili Direct) system which generated this result tra nsmitted reference range : <=0.3. The reference r christiano was not used to int erpret this result as edy l/abnormal. [facility] KlebergCaoyhelXJZPUGORW8310-27-03 06:27:00 Test Item Value Reference Range Interpretation Comments Bili Indirect Unable to See_Comment [Automated (test code = Bili Calculate message] T he system Indirect) which generated this result transmitted reference range : <=1.0. The reference range was not used to interpret this result as normal/abnormal . [facility] KlebergZuguccsUPDQEPBIE2209-40-98 06:27:00 Test Item Value Reference Range Interpretation Comments pH Justin (test code = pH Justin) 7.29 1 7.28-7.42 [facility] KlebergHboykhsZOSIUDGOW8182-80-82 06:27:00 Test Item Value Reference Range Interpretation Comments pCO2 Justin (test code = pCO2 Justin) 65 38-52 [facility] KlebergIfneiypDSCDXXGTI6192-66-21 06:27:00 Test Item Value Reference Range Interpretation Comments pO2 Justin (test code = pO2 Justin) 37 20-49 [facility] KlebergXgbudlaCUXCLGCJD2250-65-91 06:27:00 Test Item Value Reference Range Interpretation Comments HCO3 Justin (test code = HCO3 Justin) 31 22-26 [facility] KlebergLzndagcXKCEKYYLP0994-33-63 06:27:00 Test Item Value Reference Range Interpretation Comments BE Justin (test code = BE Justin) 3 -2-2 [facility] KlebergNtdjfemSIFVDAFNZ0877-11-95 06:27:00 Test Item Value Reference Range Interpretation Comments O2 Sat Justin (calc) (test code = O2 Sat 63.0 40.0-70.0 Justin (calc)) [facility] KlebergBhvjmgtHBCKBXPBL1119-60-46 06:27:00 Test Item Value Reference Range Interpretation Comments Temp Justin (test code = Temp Justin) 37.0 [facility] KlebergDivtzdkUYYARFGRN8975-40-49 06:27:00 Test Item Value Reference Range Interpretation Comments Lactic Acid Lvl (test code = Lactic 0.5 0.5-2.2 Acid Lvl) [facility] KlebergSewpjuyAPXTFPMDY3873-41-88 06:27:00 Test Item Value Reference Range Interpretation Comments TSH (test code = TSH) 0.403 0.360-3.740 [facility]AllenFsxgxcbGPNCWNSQHL6141-82-23 06:27:00 Test Item Value Reference Range Interpretation Comments WBC X 10x3 (test code = WBC X 10x3) 5.9 3.7-10.4 [place] 391173-02-27 06:27:00 Test Item Value Reference Range Interpretation Comments RBC X 10x6 (test code = RBC X 10x6) 3.67 4.20-5.40 [facility] McAllenRrokcfxVVVKKRFTTY2810-75-12 06:27:00 Test Item Value Reference Range Interpretation Comments Hgb (test code = Hgb) 10.7 12.0-16.0 [facility] McAllenGnvzaopRMFTVXFSXD3104-50-90 06:27:00 Test Item Value Reference Range Interpretation Comments Hct (test code = Hct) 33.5 36.0-48.0 [facility] McAllenMgpywwiKVHBFVIKRE8437-18-51 06:27:00 Test Item Value Reference Range Interpretation Comments MCV (test code = MCV) 91.4 80.0-98.0 [facility] McAllenKasdqveTLUEPZZVTX8566-07-84 06:27:00 Test Item Value Reference Range Interpretation Comments MCH (test code = MCH) 29.3 pg 27.0-31.0 [facility] McAllenWstdqhaCUDIWRYZHE3277-02-73 06:27:00 Test Item Value Reference Range Interpretation Comments MCHC (test code = MCHC) 32.0 32.0-36.0 [facility] McAllenEjaaxjaQEQMBUCTPY6802-41-32 06:27:00 Test Item Value Reference Range Interpretation Comments RDW (test code = RDW) 13.7 11.5-14.5 [place] 391173-02-27 06:27:00 Test Item Value Reference Range Interpretation Comments Platelet (test code = Platelet) 139 133-450 [facility] McAllenGfkylucJVFZJRRZFN8955-42-51 06:27:00 Test Item Value Reference Range Interpretation Comments MPV (test code = MPV) 7.5 7.4-10.4 [place] 391173-02-27 06:27:00 Test Item Value Reference Range Interpretation Comments ACT (TEG) Rapid (test code = ACT (TEG) 121 s 86-118 Rapid) [place] 391173-02-27 06:27:00 Test Item Value Reference Range Interpretation Comments Split Point Rapid (test code = Split 0.6 min Point Rapid) [place] 391173-02-27 06:27:00 Test Item Value Reference Range Interpretation Comments R-time Rapid (test code = R-time 0.8 min 0.4-0.7 Rapid) [place] 391173-02-27 06:27:00 Test Item Value Reference Range Interpretation Comments K-time Rapid (test code = K-time 0.8 min 0.6-2.3 Rapid) [place] 391173-02-27 06:27:00 Test Item Value Reference Range Interpretation Comments Angle Rapid (test code = Angle 79 degrees 64-80 Rapid) [facility]AllenPuopjbkETQCKFKVZT1490-77-05 06:27:00 Test Item Value Reference Range Interpretation Comments Max Amplitude Rapid (test code = Max 71 mm 52-71 Amplitude Rapid) [place] 391173-02-27 06:27:00 Test Item Value Reference Range Interpretation Comments G-value Rapid (test code = G-value 12.1 5.0-11.6 Rapid) [facility] McAllenKrcgqjwYJRRPROLKY6663-51-83 06:27:00 Test Item Value Reference Range Interpretation Comments Estimated % Lysis Rapid 0.0 See_Comment [Au tomated message] The (test code = Estimated syste m which generated % Lysis Rapid) this result t ransmitted reference range : <=7.5. The reference r christiano was not used to int erpret this result as normal/abnormal . [facility] McAllenNszdrkxRBQVBFTGHK5117-68-13 06:27:00 Test Item Value Reference Range Interpretation Comments RBC Morph (test code = Normal (11/27/22 12:27 RBC Morph) AM) [facility] McAllenZxtzzdfQTLLZJGSLZ8721-00-10 06:27:00 Test Item Value Reference Range Interpretation Comments Plt Morph (test code = Normal (11/27/22 12:27 Plt Morph) AM) [place] 391173-02-27 06:27:00 Test Item Value Reference Range Interpretation Comments Segs (test code = Segs) 60.1 45.0-75.0 [place] [address]-02-27 06:27:00 Test Item Value Reference Range Interpretation Comments Lymphocytes (test code = Lymphocytes) 23.9 20.0-40.0 [place] 391173-02-27 06:27:00 Test Item Value Reference Range Interpretation Comments Monocytes (test code = Monocytes) 9.6 2.0-12.0 [place] 391173-02-27 06:27:00 Test Item Value Reference Range Interpretation Comments Eosinophils (test code = 5.2 See_Comment [A utomated message] The Eosinophils) system which ge nerated this result tra nsmitted reference range : <=4.0. The reference r christiano was not used to int erpret this result as normal/abnormal . [place] [address]-02-27 06:27:00 Test Item Value Reference Range Interpretation Comments Basophils (test code = 1.2 See_Comment [Aut omated message] The Basophils) system which ge nerated this result tra nsmitted reference range : <=1.0. The reference r christiano was not used to int erpret this result as normal/abnormal . [place] 391173-02-27 06:27:00 Test Item Value Reference Range Interpretation Comments Neutrophils # (test code = Neutrophils 3.5 1.5-8.1 #) [place] 391173-02-27 06:27:00 Test Item Value Reference Range Interpretation Comments Lymphocytes # (test code = Lymphocytes 1.4 1.0-5.5 #) [place] 391173-02-27 06:27:00 Test Item Value Reference Range Interpretation Comments Monocytes # (test code 0.6 See_Comment [Aut omated message] The = Monocytes #) system which generated this result tra nsmitted reference range : <=0.8. The reference r christiano was not used to int erpret this result as normal/abnormal . [place] 391173-02-27 06:27:00 Test Item Value Reference Range Interpretation Comments Eosinophils # (test code 0.3 See_Comment [A utomated message] The = Eosinophils #) system whic h generated this result tra nsmitted reference range : <=0.5. The reference r christiano was not used to int erpret this result as normal/abnormal . [facility] McAllenBwlllttYAGMWRQBIS3605-91-75 06:27:00 Test Item Value Reference Range Interpretation Comments Basophils # (test code 0.1 See_Comment [Aut omated message] The = Basophils #) system which generated this result tra nsmitted reference range : <=0.2. The reference r christiano was not used to int erpret this result as normal/abnormal . [place] 391173-02-27 06:27:00 Test Item Value Reference Range Interpretation Comments ACT (TEG) Rapid (test code = ACT (TEG) 121 s 86-118 Rapid) [place] [address]-02-27 06:27:00 Test Item Value Reference Range Interpretation Comments Split Point Rapid (test code = Split 0.6 min Point Rapid) [place] [address]-02-27 06:27:00 Test Item Value Reference Range Interpretation Comments R-time Rapid (test code = R-time 0.8 min 0.4-0.7 Rapid) [place] [address]-02-27 06:27:00 Test Item Value Reference Range Interpretation Comments K-time Rapid (test code = K-time 0.8 min 0.6-2.3 Rapid) [place] [address]-02-27 06:27:00 Test Item Value Reference Range Interpretation Comments Angle Rapid (test code = Angle 79 degrees 64-80 Rapid) [place] [address]-02-27 06:27:00 Test Item Value Reference Range Interpretation Comments Max Amplitude Rapid (test code = Max 71 mm 52-71 Amplitude Rapid) [place] [address]-02-27 06:27:00 Test Item Value Reference Range Interpretation Comments G-value Rapid (test code = G-value 12.1 5.0-11.6 Rapid) [place] [address]-02-27 06:27:00 Test Item Value Reference Range Interpretation Comments Estimated % Lysis Rapid 0.0 See_Comment [Au tomated message] The (test code = Estimated syste m which generated % Lysis Rapid) this result t ransmitted reference range : <=7.5. The reference r christiano was not used to int erpret this result as normal/abnormal . [place] 391173-02-27 06:27:00 Test Item Value Reference Range Interpretation Comments RBC Morph (test code = Normal (11/27/22 12:27 RBC Morph) AM) [place] [address]-02-27 06:27:00 Test Item Value Reference Range Interpretation Comments Plt Morph (test code = Normal (11/27/22 12:27 Plt Morph) AM) [place] [address]-02-27 06:27:00 Test Item Value Reference Range Interpretation Comments Basophils # (test code 0.1 See_Comment [Aut omated message] The = Basophils #) system which generated this result tra nsmitted reference range : <=0.2. The reference r christiano was not used to int erpret this result as normal/abnormal . [place] 468413-02-27 06:27:00 Test Item Value Reference Range Interpretation Comments Glucose Lvl (test code = Glucose Lvl) 85 70-99 [place] 468413-02-27 06:27:00 Test Item Value Reference Range Interpretation Comments BUN (test code = BUN) 28 7-22 [place] 468413-02-27 06:27:00 Test Item Value Reference Range Interpretation Comments Creatinine Lvl (test code = Creatinine 2.19 0.50-1.40 Lvl) [place] 468413-02-27 06:27:00 Test Item Value Reference Range Interpretation Comments Sodium Lvl (test code = Sodium Lvl) 143 135-145 [place] 468413-02-27 06:27:00 Test Item Value Reference Range Interpretation Comments Potassium Lvl (test code = Potassium 4.3 3.5-5.1 Lvl) [place] 468413-02-27 06:27:00 Test Item Value Reference Range Interpretation Comments Chloride Lvl (test code = Chloride Lvl) 110 95-109 [place] 468413-02-27 06:27:00 Test Item Value Reference Range Interpretation Comments CO2 (test code = CO2) 24-32 [place] 468413-02-27 06:27:00 Test Item Value Reference Range Interpretation Comments Calcium Lvl (test code = Calcium Lvl) 8.1 8.5-10.5 [place] 468413-02-27 06:27:00 Test Item Value Reference Range Interpretation Comments AGAP (test code = AGAP) 10.3 10.0-20.0 [place] 468413-02-27 06:27:00 Test Item Value Reference Range Interpretation Comments eGFR (test code = eGFR) 22 [facility]2023-02-27 06:27:00 Test Item Value Reference Range Interpretation Comments Total Protein (test code = Total 6.6 6.4-8.4 Protein) [place] 468413-02-27 06:27:00 Test Item Value Reference Range Interpretation Comments Albumin Lvl (test code = Albumin Lvl) 3.0 3.5-5.0 [place] 468413-02-27 06:27:00 Test Item Value Reference Range Interpretation Comments Globulin (test code = Globulin) 3.6 2.7-4.2 [place] 468413-02-27 06:27:00 Test Item Value Reference Range Interpretation Comments A/G Ratio (test code = A/G Ratio) 0.8 1 0.7-1.6 [place] [address]-02-27 06:27:00 Test Item Value Reference Range Interpretation Comments ALANINE AMINOTRANSFERASE 21 See_Comment [A utomated message] (test code = ALANINE The sys tem which AMINOTRANSFERASE) generated this result transmitted ref erence range: <=65. Th e reference range was not used to int erpret this result as normal/abnormal . [facility]2023-02-27 06:27:00 Test Item Value Reference Range Interpretation Comments AST (test code = AST) 17 See_Comment [Auto mated message] The system which ge nerated this result transmit sheba reference range : <=37. The reference range was not used to interpr et this result as edy l/abnormal. [place] 468413-02-27 06:27:00 Test Item Value Reference Range Interpretation Comments Alk Phos (test code = Alk Phos) 84 39-136 [place] 468413-02-27 06:27:00 Test Item Value Reference Range Interpretation Comments Bili Total (test code = Bili Total) 0.3 0.2-1.3 [place] 468413-02-27 06:27:00 Test Item Value Reference Range Interpretation Comments Bili Direct (test code no gt See_Comment [Aut omated message] The = Bili Direct) system which generated this result tra nsmitted reference range : <=0.3. The reference r christiano was not used to int erpret this result as edy l/abnormal. [facility] DJLEQ1822-78-23 06:27:00 Test Item Value Reference Range Interpretation Comments Bili Indirect Unable to See_Comment [Automated (test code = Bili Calculate message] T he system Indirect) which generated this result transmitted reference range : <=1.0. The reference range was not used to interpret this result as normal/abnormal . [facility] VHBCP6611-02-79 06:27:00 Test Item Value Reference Range Interpretation Comments Lactic Acid Lvl (test code = Lactic 0.5 0.5-2.2 Acid Lvl) [place] 647753-02-27 06:27:00 Test Item Value Reference Range Interpretation Comments Total Protein (test code = Total 6.6 6.4-8.4 Protein) [facility]bergRbohvxvGREFZRNSF1308-07-57 06:27:00 Test Item Value Reference Range Interpretation Comments Albumin Lvl (test code = Albumin Lvl) 3.0 3.5-5.0 [facility] KlebergZlwxxgnFUHWYRDVU0378-63-07 06:27:00 Test Item Value Reference Range Interpretation Comments Globulin (test code = Globulin) 3.6 2.7-4.2 [facility] ParkwayBrdcjusRFLGRYQNF5447-38-67 06:27:00 Test Item Value Reference Range Interpretation Comments A/G Ratio (test code = A/G Ratio) 0.8 1 0.7-1.6 [facility] KlebergOawchtmAWNMDWAJB2812-70-58 06:27:00 Test Item Value Reference Range Interpretation Comments ALANINE AMINOTRANSFERASE 21 See_Comment [A utomated message] (test code = ALANINE The sys tem which AMINOTRANSFERASE) generated this result transmitted ref erence range: <=65. Th e reference range was not used to int erpret this result as normal/abnormal . [facility]NghedcnFCURBBHCB8624[facility]39[facility] 06:27:00 Test Item Value Reference Range Interpretation Comments AST (test code = AST) 17 See_Comment [Auto mated message] The system which ge nerated this result transmit sheba reference range : <=37. The reference range was not used to interpr et this result as edy l/abnormal. [facility]ON[facility] 06:27:00 Test Item Value Reference Range Interpretation Comments Alk Phos (test code = Alk Phos) 84 39-136 [facility] KlebergBecvhnoXMBJTQXOU1035-94-12 06:27:00 Test Item Value Reference Range Interpretation Comments Bili Total (test code = Bili Total) 0.3 0.2-1.3 [facility] KlebergEdlnmfsHBAWOJEZK1400-09-17 06:27:00 Test Item Value Reference Range Interpretation Comments Bili Direct (test code no gt See_Comment [Aut omated message] The = Bili Direct) system which generated this result tra nsmitted reference range : <=0.3. The reference r christiano was not used to int erpret this result as edy l/abnormal. [facility] KlebergLzuhcuyFWUXARLUW9941-74-77 06:27:00 Test Item Value Reference Range Interpretation Comments Bili Indirect Unable to See_Comment [Automated (test code = Bili Calculate message] T he system Indirect) which generated this result transmitted reference range : <=1.0. The reference range was not used to interpret this result as normal/abnormal . [facility] KlebergEktnvmnBMMFEHZFJ1140-90-24 06:27:00 Test Item Value Reference Range Interpretation Comments pH Justin (test code = pH Justin) 7.29 1 7.28-7.42 [facility] KlebergLwbtvapNSFLSEIGV3535-42-13 06:27:00 Test Item Value Reference Range Interpretation Comments pCO2 Justin (test code = pCO2 Justin) 65 38-52 [facility] KlebergQhefnffLRXEFWXAA6277-66-18 06:27:00 Test Item Value Reference Range Interpretation Comments pO2 Justin (test code = pO2 Justin) 37 20-49 [facility] KlebergPuafchiSDAOYGSFA3680-64-47 06:27:00 Test Item Value Reference Range Interpretation Comments HCO3 Justin (test code = HCO3 Justin) 31 22-26 [facility] KlebergEbmabjoMDAAUMQZN9551-72-51 06:27:00 Test Item Value Reference Range Interpretation Comments BE Justin (test code = BE Justin) 3 -2-2 [facility] KlebergBsaqhvzVZRBSIXHF9834-19-61 06:27:00 Test Item Value Reference Range Interpretation Comments O2 Sat Justin (calc) (test code = O2 Sat 63.0 40.0-70.0 Justin (calc)) [facility] KlebergUawarilTHYDISREM6622-25-22 06:27:00 Test Item Value Reference Range Interpretation Comments Temp Justin (test code = Temp Justin) 37.0 [facility] KlebergSfyilkhMQMIFIOZH9986-60-70 06:27:00 Test Item Value Reference Range Interpretation Comments Lactic Acid Lvl (test code = Lactic 0.5 0.5-2.2 Acid Lvl) [facility] KlebergHdnrbkwVBBHAXBYV7164-03-35 06:27:00 Test Item Value Reference Range Interpretation Comments TSH (test code = TSH) 0.403 0.360-3.740 [facility]AllenWomtuwmTKJITTGMLK8840-48-34 06:27:00 Test Item Value Reference Range Interpretation Comments WBC X 10x3 (test code = WBC X 10x3) 5.9 3.7-10.4 [facility] McAllenHpbxlrfUIAWTYHTOI5124-07-25 06:27:00 Test Item Value Reference Range Interpretation Comments RBC X 10x6 (test code = RBC X 10x6) 3.67 4.20-5.40 [facility] McAllenUtwvhnyPFKONMZWSF6549-78-57 06:27:00 Test Item Value Reference Range Interpretation Comments Hgb (test code = Hgb) 10.7 12.0-16.0 [facility]AllenCqjxpdqVZOJEQNUTC7417-90-77 06:27:00 Test Item Value Reference Range Interpretation Comments Hct (test code = Hct) 33.5 36.0-48.0 [facility] McAllenTqiaikxBXDAADFMCF9699-31-03 06:27:00 Test Item Value Reference Range Interpretation Comments MCV (test code = MCV) 91.4 80.0-98.0 [facility] McAllenVdftvtvTGKZVCAYMA0509-85-43 06:27:00 Test Item Value Reference Range Interpretation Comments MCH (test code = MCH) 29.3 pg 27.0-31.0 [facility] McAllenObssafeZJXLVNDKRK0276-13-08 06:27:00 Test Item Value Reference Range Interpretation Comments MCHC (test code = MCHC) 32.0 32.0-36.0 [facility] McAllenGgxssjpHUJDVRZTYM6955-07-96 06:27:00 Test Item Value Reference Range Interpretation Comments RDW (test code = RDW) 13.7 11.5-14.5 [facility] McAllenPggoawkRKVMICCCGT7408-08-48 06:27:00 Test Item Value Reference Range Interpretation Comments Platelet (test code = Platelet) 139 133-450 [facility] McAllenXodmrsdBNQBPHKBQJ6157-34-94 06:27:00 Test Item Value Reference Range Interpretation Comments MPV (test code = MPV) 7.5 7.4-10.4 [place] 391173-02-27 06:27:00 Test Item Value Reference Range Interpretation Comments ACT (TEG) Rapid (test code = ACT (TEG) 121 s 86-118 Rapid) [facility] McAllenQbnfkcuDLTCIDMTQX3084-96-26 06:27:00 Test Item Value Reference Range Interpretation Comments Split Point Rapid (test code = Split 0.6 min Point Rapid) [place] 391173-02-27 06:27:00 Test Item Value Reference Range Interpretation Comments R-time Rapid (test code = R-time 0.8 min 0.4-0.7 Rapid) [place] [address]-02-27 06:27:00 Test Item Value Reference Range Interpretation Comments K-time Rapid (test code = K-time 0.8 min 0.6-2.3 Rapid) [place] [address]-02-27 06:27:00 Test Item Value Reference Range Interpretation Comments Angle Rapid (test code = Angle 79 degrees 64-80 Rapid) [place] 391173-02-27 06:27:00 Test Item Value Reference Range Interpretation Comments Max Amplitude Rapid (test code = Max 71 mm 52-71 Amplitude Rapid) [place] [address]-02-27 06:27:00 Test Item Value Reference Range Interpretation Comments G-value Rapid (test code = G-value 12.1 5.0-11.6 Rapid) [place] 391173-02-27 06:27:00 Test Item Value Reference Range Interpretation Comments Estimated % Lysis Rapid 0.0 See_Comment [Au tomated message] The (test code = Estimated syste m which generated % Lysis Rapid) this result t ransmitted reference range : <=7.5. The reference r christiano was not used to int erpret this result as normal/abnormal . [facility] McAllenTflpnshVSQTIKYOHY4787-51-37 06:27:00 Test Item Value Reference Range Interpretation Comments RBC Morph (test code = Normal (11/27/22 12:27 RBC Morph) AM) [place] 391173-02-27 06:27:00 Test Item Value Reference Range Interpretation Comments Plt Morph (test code = Normal (11/27/22 12:27 Plt Morph) AM) [place] 391173-02-27 06:27:00 Test Item Value Reference Range Interpretation Comments Segs (test code = Segs) 60.1 45.0-75.0 [place] 391173-02-27 06:27:00 Test Item Value Reference Range Interpretation Comments Lymphocytes (test code = Lymphocytes) 23.9 20.0-40.0 [place] 391173-02-27 06:27:00 Test Item Value Reference Range Interpretation Comments Monocytes (test code = Monocytes) 9.6 2.0-12.0 [place] 391173-02-27 06:27:00 Test Item Value Reference Range Interpretation Comments Eosinophils (test code = 5.2 See_Comment [A utomated message] The Eosinophils) system which ge nerated this result tra nsmitted reference range : <=4.0. The reference r christiano was not used to int erpret this result as normal/abnormal . [place] [address]-02-27 06:27:00 Test Item Value Reference Range Interpretation Comments Basophils (test code = 1.2 See_Comment [Aut omated message] The Basophils) system which ge nerated this result tra nsmitted reference range : <=1.0. The reference r christiano was not used to int erpret this result as normal/abnormal . [facility] McAllenLlrfpezUIWGHQUCZO2929-00-34 06:27:00 Test Item Value Reference Range Interpretation Comments Neutrophils # (test code = Neutrophils 3.5 1.5-8.1 #) [place] 391173-02-27 06:27:00 Test Item Value Reference Range Interpretation Comments Lymphocytes # (test code = Lymphocytes 1.4 1.0-5.5 #) [place] 391173-02-27 06:27:00 Test Item Value Reference Range Interpretation Comments Monocytes # (test code 0.6 See_Comment [Aut omated message] The = Monocytes #) system which generated this result tra nsmitted reference range : <=0.8. The reference r christiano was not used to int erpret this result as normal/abnormal . [facility] McAllenTearuucAJVLMVFBUS7015-57-16 06:27:00 Test Item Value Reference Range Interpretation Comments Eosinophils # (test code 0.3 See_Comment [A utomated message] The = Eosinophils #) system wh h generated this result tra nsmitted reference range : <=0.5. The reference r christiano was not used to int erpret this result as normal/abnormal . [facility] McAllenMjthilfAMDCXSZLFG8286-89-24 06:27:00 Test Item Value Reference Range Interpretation Comments Basophils # (test code 0.1 See_Comment [Aut omated message] The = Basophils #) system which generated this result tra nsmitted reference range : <=0.2. The reference r christiano was not used to int erpret this result as normal/abnormal . [place] 391173-02-27 06:27:00 Test Item Value Reference Range Interpretation Comments ACT (TEG) Rapid (test code = ACT (TEG) 121 s 86-118 Rapid) [place] 391173-02-27 06:27:00 Test Item Value Reference Range Interpretation Comments Split Point Rapid (test code = Split 0.6 min Point Rapid) [place] [address]-02-27 06:27:00 Test Item Value Reference Range Interpretation Comments R-time Rapid (test code = R-time 0.8 min 0.4-0.7 Rapid) [place] [address]-02-27 06:27:00 Test Item Value Reference Range Interpretation Comments K-time Rapid (test code = K-time 0.8 min 0.6-2.3 Rapid) [place] [address]-02-27 06:27:00 Test Item Value Reference Range Interpretation Comments Angle Rapid (test code = Angle 79 degrees 64-80 Rapid) [place] [address]-02-27 06:27:00 Test Item Value Reference Range Interpretation Comments Max Amplitude Rapid (test code = Max 71 mm 52-71 Amplitude Rapid) [place] [address]-02-27 06:27:00 Test Item Value Reference Range Interpretation Comments G-value Rapid (test code = G-value 12.1 5.0-11.6 Rapid) [place] [address]-02-27 06:27:00 Test Item Value Reference Range Interpretation Comments Estimated % Lysis Rapid 0.0 See_Comment [Au tomated message] The (test code = Estimated syste m which generated % Lysis Rapid) this result t ransmitted reference range : <=7.5. The reference r christiano was not used to int erpret this result as normal/abnormal . [place] 391173-02-27 06:27:00 Test Item Value Reference Range Interpretation Comments RBC Morph (test code = Normal (11/27/22 12:27 RBC Morph) AM) [place] 391173-02-27 06:27:00 Test Item Value Reference Range Interpretation Comments Plt Morph (test code = Normal (11/27/22 12:27 Plt Morph) AM) [facility]AllenGucwnoiVSBKYSDHIH5790-19-90 06:27:00 Test Item Value Reference Range Interpretation Comments Basophils # (test code 0.1 See_Comment [Aut omated message] The = Basophils #) system which generated this result tra nsmitted reference range : <=0.2. The reference r christiano was not used to int erpret this result as normal/abnormal . [facility]2023-02-27 06:27:00 Test Item Value Reference Range Interpretation Comments Glucose Lvl (test code = Glucose Lvl) 85 70-99 [place] 468413-02-27 06:27:00 Test Item Value Reference Range Interpretation Comments BUN (test code = BUN) 28 7-22 [place] 468413-02-27 06:27:00 Test Item Value Reference Range Interpretation Comments Creatinine Lvl (test code = Creatinine 2.19 0.50-1.40 Lvl) [facility]2023-02-27 06:27:00 Test Item Value Reference Range Interpretation Comments Sodium Lvl (test code = Sodium Lvl) 143 135-145 [place] 468413-02-27 06:27:00 Test Item Value Reference Range Interpretation Comments Potassium Lvl (test code = Potassium 4.3 3.5-5.1 Lvl) [place] 468413-02-27 06:27:00 Test Item Value Reference Range Interpretation Comments Chloride Lvl (test code = Chloride Lvl) 110 95-109 [place] 468413-02-27 06:27:00 Test Item Value Reference Range Interpretation Comments CO2 (test code = CO2) 27 24-32 [place] 468413-02-27 06:27:00 Test Item Value Reference Range Interpretation Comments Calcium Lvl (test code = Calcium Lvl) 8.1 8.5-10.5 [place] 468413-02-27 06:27:00 Test Item Value Reference Range Interpretation Comments AGAP (test code = AGAP) 10.3 10.0-20.0 [place] 468413-02-27 06:27:00 Test Item Value Reference Range Interpretation Comments eGFR (test code = eGFR) 22 [place] 468413-02-27 06:27:00 Test Item Value Reference Range Interpretation Comments Total Protein (test code = Total 6.6 6.4-8.4 Protein) [place] 468413-02-27 06:27:00 Test Item Value Reference Range Interpretation Comments Albumin Lvl (test code = Albumin Lvl) 3.0 3.5-5.0 [place] 468413-02-27 06:27:00 Test Item Value Reference Range Interpretation Comments Globulin (test code = Globulin) 3.6 2.7-4.2 [place] 468413-02-27 06:27:00 Test Item Value Reference Range Interpretation Comments A/G Ratio (test code = A/G Ratio) 0.8 1 0.7-1.6 [place] [address]-02-27 06:27:00 Test Item Value Reference Range Interpretation Comments ALANINE AMINOTRANSFERASE 21 See_Comment [A utomated message] (test code = ALANINE The sys tem which AMINOTRANSFERASE) generated this result transmitted ref erence range: <=65. Th e reference range was not used to int erpret this result as normal/abnormal . [facility]2023-02-27 06:27:00 Test Item Value Reference Range Interpretation Comments AST (test code = AST) 17 See_Comment [Auto mated message] The system which ge nerated this result transmit sheba reference range : <=37. The reference range was not used to interpr et this result as edy l/abnormal. [place] 468413-02-27 06:27:00 Test Item Value Reference Range Interpretation Comments Alk Phos (test code = Alk Phos) 84 39-136 [place] 468413-02-27 06:27:00 Test Item Value Reference Range Interpretation Comments Bili Total (test code = Bili Total) 0.3 0.2-1.3 [place] 468413-02-27 06:27:00 Test Item Value Reference Range Interpretation Comments Bili Direct (test code no gt See_Comment [Aut omated message] The = Bili Direct) system which generated this result tra nsmitted reference range : <=0.3. The reference r christiano was not used to int erpret this result as edy l/abnormal. [facility]2023-02-27 06:27:00 Test Item Value Reference Range Interpretation Comments Bili Indirect Unable to See_Comment [Automated (test code = Bili Calculate message] T he system Indirect) which generated this result transmitted reference range : <=1.0. The reference range was not used to interpret this result as normal/abnormal . [facility]2023-02-27 06:27:00 Test Item Value Reference Range Interpretation Comments Lactic Acid Lvl (test code = Lactic 0.5 0.5-2.2 Acid Lvl) [facility]bergAuztbrdAFRHVNRIC9370-91-08 06:27:00 Test Item Value Reference Range Interpretation Comments Total Protein (test code = Total 6.6 6.4-8.4 Protein) [facility] KlebergIvslacxDAMHKIKQH3461-33-01 06:27:00 Test Item Value Reference Range Interpretation Comments Albumin Lvl (test code = Albumin Lvl) 3.0 3.5-5.0 [facility] KlebergHirfxcbPYYOLMWCM9329-89-44 06:27:00 Test Item Value Reference Range Interpretation Comments Globulin (test code = Globulin) 3.6 2.7-4.2 [facility] KlebergHzqsjdwWEGDZRKMX5848-13-28 06:27:00 Test Item Value Reference Range Interpretation Comments A/G Ratio (test code = A/G Ratio) 0.8 1 0.7-1.6 [place] 647753-02-27 06:27:00 Test Item Value Reference Range Interpretation Comments ALANINE AMINOTRANSFERASE 21 See_Comment [A utomated message] (test code = ALANINE The sys tem which AMINOTRANSFERASE) generated this result transmitted ref erence range: <=65. Th e reference range was not used to int erpret this result as normal/abnormal . [facility] KlebergRpsemhnCIWTFHQRU6408-41-05 06:27:00 Test Item Value Reference Range Interpretation Comments AST (test code = AST) 17 See_Comment [Auto mated message] The system which ge nerated this result transmit sheba reference range : <=37. The reference range was not used to interpr et this result as edy l/abnormal. [facility]PkzpdvlSEHMEOIXR4115-67-91 06:27:00 Test Item Value Reference Range Interpretation Comments Alk Phos (test code = Alk Phos) 84 39-136 [facility] KlebergNkvxhloJJWSUQYHX0214-41-53 06:27:00 Test Item Value Reference Range Interpretation Comments Bili Total (test code = Bili Total) 0.3 0.2-1.3 [facility] KlebergNqvchctXWNDYQLZL3563-23-69 06:27:00 Test Item Value Reference Range Interpretation Comments Bili Direct (test code no gt See_Comment [Aut omated message] The = Bili Direct) system which generated this result tra nsmitted reference range : <=0.3. The reference r christiano was not used to int erpret this result as edy l/abnormal. [facility] KlebergTxsmuvdXMJJAROAR3591-27-29 06:27:00 Test Item Value Reference Range Interpretation Comments Bili Indirect Unable to See_Comment [Automated (test code = Bili Calculate message] T he system Indirect) which generated this result transmitted reference range : <=1.0. The reference range was not used to interpret this result as normal/abnormal . [facility] KlebergCgaoacsGNYFAWKUX3257-53-83 06:27:00 Test Item Value Reference Range Interpretation Comments pH Justin (test code = pH Justin) 7.29 1 7.28-7.42 [facility] KlebergEbsuackPMZPYBNXK0447-24-87 06:27:00 Test Item Value Reference Range Interpretation Comments pCO2 Justin (test code = pCO2 Justin) 65 38-52 [facility] KlebergJbqapplKUMZRWXJS8103-73-40 06:27:00 Test Item Value Reference Range Interpretation Comments pO2 Justin (test code = pO2 Justin) 37 20-49 [facility] KlebergXyaqdhbYDPKTJHOI9690-67-96 06:27:00 Test Item Value Reference Range Interpretation Comments HCO3 Justin (test code = HCO3 Justin) 31 22-26 [facility] KlebergUijxcsnTEHVIRZLH6546-28-44 06:27:00 Test Item Value Reference Range Interpretation Comments BE Justin (test code = BE Justin) 3 -2-2 [facility] KlebergJabwrcyDTZCIGNEF6890-71-45 06:27:00 Test Item Value Reference Range Interpretation Comments O2 Sat Justin (calc) (test code = O2 Sat 63.0 40.0-70.0 Justin (calc)) [facility] KlebergEjuopvmDLAFSKMTL4116-73-18 06:27:00 Test Item Value Reference Range Interpretation Comments Temp Justin (test code = Temp Justin) 37.0 [facility] KlebergIhjocakGHHLAFEMO2466-54-21 06:27:00 Test Item Value Reference Range Interpretation Comments Lactic Acid Lvl (test code = Lactic 0.5 0.5-2.2 Acid Lvl) [facility] KlebergPyvrxijYTYLBMEBB6002-95-72 06:27:00 Test Item Value Reference Range Interpretation Comments TSH (test code = TSH) 0.403 0.360-3.740 [place] 391173-02-27 06:27:00 Test Item Value Reference Range Interpretation Comments WBC X 10x3 (test code = WBC X 10x3) 5.9 3.7-10.4 [place] 391173-02-27 06:27:00 Test Item Value Reference Range Interpretation Comments RBC X 10x6 (test code = RBC X 10x6) 3.67 4.20-5.40 [place] 391173-02-27 06:27:00 Test Item Value Reference Range Interpretation Comments Hgb (test code = Hgb) 10.7 12.0-16.0 [place] 391173-02-27 06:27:00 Test Item Value Reference Range Interpretation Comments Hct (test code = Hct) 33.5 36.0-48.0 [facility]AllenIsimbmpJBBDEPLFRM4060-79-86 06:27:00 Test Item Value Reference Range Interpretation Comments MCV (test code = MCV) 91.4 80.0-98.0 [facility] McAllenTkyofvoCQSHOEWDPO7717-11-30 06:27:00 Test Item Value Reference Range Interpretation Comments MCH (test code = MCH) 29.3 pg 27.0-31.0 [facility] McAllenKplxcstBMSQCAGUPK9359-22-50 06:27:00 Test Item Value Reference Range Interpretation Comments MCHC (test code = MCHC) 32.0 32.0-36.0 [place] 391173-02-27 06:27:00 Test Item Value Reference Range Interpretation Comments RDW (test code = RDW) 13.7 11.5-14.5 [place] 391173-02-27 06:27:00 Test Item Value Reference Range Interpretation Comments Platelet (test code = Platelet) 139 133-450 [place] 391173-02-27 06:27:00 Test Item Value Reference Range Interpretation Comments MPV (test code = MPV) 7.5 7.4-10.4 [place] 391173-02-27 06:27:00 Test Item Value Reference Range Interpretation Comments ACT (TEG) Rapid (test code = ACT (TEG) 121 s 86-118 Rapid) [place] 391173-02-27 06:27:00 Test Item Value Reference Range Interpretation Comments Split Point Rapid (test code = Split 0.6 min Point Rapid) [place] 391173-02-27 06:27:00 Test Item Value Reference Range Interpretation Comments R-time Rapid (test code = R-time 0.8 min 0.4-0.7 Rapid) [place] [address]-02-27 06:27:00 Test Item Value Reference Range Interpretation Comments K-time Rapid (test code = K-time 0.8 min 0.6-2.3 Rapid) [place] [address]-02-27 06:27:00 Test Item Value Reference Range Interpretation Comments Angle Rapid (test code = Angle 79 degrees 64-80 Rapid) [place] 391173-02-27 06:27:00 Test Item Value Reference Range Interpretation Comments Max Amplitude Rapid (test code = Max 71 mm 52-71 Amplitude Rapid) [place] 391173-02-27 06:27:00 Test Item Value Reference Range Interpretation Comments G-value Rapid (test code = G-value 12.1 5.0-11.6 Rapid) [place] 391173-02-27 06:27:00 Test Item Value Reference Range Interpretation Comments Estimated % Lysis Rapid 0.0 See_Comment [Au tomated message] The (test code = Estimated syste m which generated % Lysis Rapid) this result t ransmitted reference range : <=7.5. The reference r christiano was not used to int erpret this result as normal/abnormal . [facility]52[facility]:00 Test Item Value Reference Range Interpretation Comments RBC Morph (test code = Normal (11/27/22 12:27 RBC Morph) AM) [place] 391173-02-27 06:27:00 Test Item Value Reference Range Interpretation Comments Plt Morph (test code = Normal (11/27/22 12:27 Plt Morph) AM) [place] 391173-02-27 06:27:00 Test Item Value Reference Range Interpretation Comments Segs (test code = Segs) 60.1 45.0-75.0 [place] [address]-02-27 06:27:00 Test Item Value Reference Range Interpretation Comments Lymphocytes (test code = Lymphocytes) 23.9 20.0-40.0 [place] [address]-02-27 06:27:00 Test Item Value Reference Range Interpretation Comments Monocytes (test code = Monocytes) 9.6 2.0-12.0 [place] 391173-02-27 06:27:00 Test Item Value Reference Range Interpretation Comments Eosinophils (test code = 5.2 See_Comment [A utomated message] The Eosinophils) system which ge nerated this result tra nsmitted reference range : <=4.0. The reference r christiano was not used to int erpret this result as normal/abnormal . [place] [address]-02-27 06:27:00 Test Item Value Reference Range Interpretation Comments Basophils (test code = 1.2 See_Comment [Aut omated message] The Basophils) system which ge nerated this result tra nsmitted reference range : <=1.0. The reference r christiano was not used to int erpret this result as normal/abnormal . [facility]AllenYjdjbevJHVXZBPEPT7412-08-03 06:27:00 Test Item Value Reference Range Interpretation Comments Neutrophils # (test code = Neutrophils 3.5 1.5-8.1 #) [place] [address]-02-27 06:27:00 Test Item Value Reference Range Interpretation Comments Lymphocytes # (test code = Lymphocytes 1.4 1.0-5.5 #) [place] [address]-02-27 06:27:00 Test Item Value Reference Range Interpretation Comments Monocytes # (test code 0.6 See_Comment [Aut omated message] The = Monocytes #) system which generated this result tra nsmitted reference range : <=0.8. The reference r christiano was not used to int erpret this result as normal/abnormal . [facility]AllenAhlaywfQWQDSOZBDA3866-16-31 06:27:00 Test Item Value Reference Range Interpretation Comments Eosinophils # (test code 0.3 See_Comment [A utomated message] The = Eosinophils #) system wh h generated this result tra nsmitted reference range : <=0.5. The reference r christiano was not used to int erpret this result as normal/abnormal . [facility]AllenGvwkdpoEZRMPQJKLG3346-98-90 06:27:00 Test Item Value Reference Range Interpretation Comments Basophils # (test code 0.1 See_Comment [Aut omated message] The = Basophils #) system which generated this result tra nsmitted reference range : <=0.2. The reference r christiano was not used to int erpret this result as normal/abnormal . [place] 391173-02-27 06:27:00 Test Item Value Reference Range Interpretation Comments ACT (TEG) Rapid (test code = ACT (TEG) 121 s 86-118 Rapid) [place] 391173-02-27 06:27:00 Test Item Value Reference Range Interpretation Comments Split Point Rapid (test code = Split 0.6 min Point Rapid) [place] 391173-02-27 06:27:00 Test Item Value Reference Range Interpretation Comments R-time Rapid (test code = R-time 0.8 min 0.4-0.7 Rapid) [place] 391173-02-27 06:27:00 Test Item Value Reference Range Interpretation Comments K-time Rapid (test code = K-time 0.8 min 0.6-2.3 Rapid) [place] 391173-02-27 06:27:00 Test Item Value Reference Range Interpretation Comments Angle Rapid (test code = Angle 79 degrees 64-80 Rapid) [place] 391173-02-27 06:27:00 Test Item Value Reference Range Interpretation Comments Max Amplitude Rapid (test code = Max 71 mm 52-71 Amplitude Rapid) [place] 391173-02-27 06:27:00 Test Item Value Reference Range Interpretation Comments G-value Rapid (test code = G-value 12.1 5.0-11.6 Rapid) [place] 391173-02-27 06:27:00 Test Item Value Reference Range Interpretation Comments Estimated % Lysis Rapid 0.0 See_Comment [Au tomated message] The (test code = Estimated syste m which generated % Lysis Rapid) this result t ransmitted reference range : <=7.5. The reference r christiano was not used to int erpret this result as normal/abnormal . [place] 391173-02-27 06:27:00 Test Item Value Reference Range Interpretation Comments RBC Morph (test code = Normal (11/27/22 12:27 RBC Morph) AM) [place] 391173-02-27 06:27:00 Test Item Value Reference Range Interpretation Comments Plt Morph (test code = Normal (11/27/22 12:27 Plt Morph) AM) [place] 391173-02-27 06:27:00 Test Item Value Reference Range Interpretation Comments Basophils # (test code 0.1 See_Comment [Aut omated message] The = Basophils #) system which generated this result tra nsmitted reference range : <=0.2. The reference r christiano was not used to int erpret this result as normal/abnormal . [place] 468413-02-27 06:27:00 Test Item Value Reference Range Interpretation Comments Glucose Lvl (test code = Glucose Lvl) 85 70-99 [place] 468413-02-27 06:27:00 Test Item Value Reference Range Interpretation Comments BUN (test code = BUN) 28 7-22 [place] 468413-02-27 06:27:00 Test Item Value Reference Range Interpretation Comments Creatinine Lvl (test code = Creatinine 2.19 0.50-1.40 Lvl) [place] 468413-02-27 06:27:00 Test Item Value Reference Range Interpretation Comments Sodium Lvl (test code = Sodium Lvl) 143 135-145 [place] 468413-02-27 06:27:00 Test Item Value Reference Range Interpretation Comments Potassium Lvl (test code = Potassium 4.3 3.5-5.1 Lvl) [place] 468413-02-27 06:27:00 Test Item Value Reference Range Interpretation Comments Chloride Lvl (test code = Chloride Lvl) 110 95-109 [place] 468413-02-27 06:27:00 Test Item Value Reference Range Interpretation Comments CO2 (test code = CO2) 27 24-32 [place] 468413-02-27 06:27:00 Test Item Value Reference Range Interpretation Comments Calcium Lvl (test code = Calcium Lvl) 8.1 8.5-10.5 [place] 468413-02-27 06:27:00 Test Item Value Reference Range Interpretation Comments AGAP (test code = AGAP) 10.3 10.0-20.0 [facility] [id number] 06:27:00 Test Item Value Reference Range Interpretation Comments eGFR (test code = eGFR) 22 [place] 468413-02-27 06:27:00 Test Item Value Reference Range Interpretation Comments Total Protein (test code = Total 6.6 6.4-8.4 Protein) [facility]2023-02-27 06:27:00 Test Item Value Reference Range Interpretation Comments Albumin Lvl (test code = Albumin Lvl) 3.0 3.5-5.0 [facility] [place] [address]53OWTHW0677-26-38 06:27:00 Test Item Value Reference Range Interpretation Comments Globulin (test code = Globulin) 3.6 2.7-4.2 [facility] [id number] 06:27:00 Test Item Value Reference Range Interpretation Comments A/G Ratio (test code = A/G Ratio) 0.8 1 0.7-1.6 [place] [address]-02-27 06:27:00 Test Item Value Reference Range Interpretation Comments ALANINE AMINOTRANSFERASE 21 See_Comment [A utomated message] (test code = ALANINE The sys tem which AMINOTRANSFERASE) generated this result transmitted ref erence range: <=65. Th e reference range was not used to int erpret this result as normal/abnormal . [facility] [id number] 06:27:00 Test Item Value Reference Range Interpretation Comments AST (test code = AST) 17 See_Comment [Auto mated message] The system which ge nerated this result transmit sheba reference range : <=37. The reference range was not used to interpr et this result as edy l/abnormal. [facility] [id number] 06:27:00 Test Item Value Reference Range Interpretation Comments Alk Phos (test code = Alk Phos) 84 39-136 [facility] [id number] 06:27:00 Test Item Value Reference Range Interpretation Comments Bili Total (test code = Bili Total) 0.3 0.2-1.3 [facility] [id number] 06:27:00 Test Item Value Reference Range Interpretation Comments Bili Direct (test code no gt See_Comment [Aut omated message] The = Bili Direct) system which generated this result tra nsmitted reference range : <=0.3. The reference r christiano was not used to int erpret this result as edy l/abnormal. [facility]2023-02-27 06:27:00 Test Item Value Reference Range Interpretation Comments Bili Indirect Unable to See_Comment [Automated (test code = Bili Calculate message] T he system Indirect) which generated this result transmitted reference range : <=1.0. The reference range was not used to interpret this result as normal/abnormal . [facility]2023-02-27 06:27:00 Test Item Value Reference Range Interpretation Comments Lactic Acid Lvl (test code = Lactic 0.5 0.5-2.2 Acid Lvl) [facility]bergSzehtjpTSNIQRNQT5880-07-87 06:27:00 Test Item Value Reference Range Interpretation Comments Total Protein (test code = Total 6.6 6.4-8.4 Protein) [facility]bergUyyhbaoMPHNRZBXS0653-56-04 06:27:00 Test Item Value Reference Range Interpretation Comments Albumin Lvl (test code = Albumin Lvl) 3.0 3.5-5.0 [facility] KlebergIysoualHDEMTQHBK9574-13-34 06:27:00 Test Item Value Reference Range Interpretation Comments Globulin (test code = Globulin) 3.6 2.7-4.2 [facility]bergRfrzwrxKIOZDVSKR1365-76-58 06:27:00 Test Item Value Reference Range Interpretation Comments A/G Ratio (test code = A/G Ratio) 0.8 1 0.7-1.6 [facility] KlebergRhstqrxLAULXNNLH3088-45-34 06:27:00 Test Item Value Reference Range Interpretation Comments ALANINE AMINOTRANSFERASE 21 See_Comment [A utomated message] (test code = ALANINE The sys tem which AMINOTRANSFERASE) generated this result transmitted ref erence range: <=65. Th e reference range was not used to int erpret this result as normal/abnormal . [facility] KlebergHijvrngULRUGNVKV9128-47-81 06:27:00 Test Item Value Reference Range Interpretation Comments AST (test code = AST) 17 See_Comment [Auto mated message] The system which ge nerated this result transmit sheba reference range : <=37. The reference range was not used to interpr et this result as edy l/abnormal. [facility] KlebergIgvclpmGUAWMJOWA6400-94-30 06:27:00 Test Item Value Reference Range Interpretation Comments Alk Phos (test code = Alk Phos) 84 39-136 [facility] KlebergAipstacBZMTLPUAX0707-94-25 06:27:00 Test Item Value Reference Range Interpretation Comments Bili Total (test code = Bili Total) 0.3 0.2-1.3 [facility] KlebergPvnvosvONMOJCODE4893-78-02 06:27:00 Test Item Value Reference Range Interpretation Comments Bili Direct (test code no gt See_Comment [Aut omated message] The = Bili Direct) system which generated this result tra nsmitted reference range : <=0.3. The reference r christiano was not used to int erpret this result as edy l/abnormal. [facility] KlebergGfqvtkjAQPXTYFAD3566-37-90 06:27:00 Test Item Value Reference Range Interpretation Comments Bili Indirect Unable to See_Comment [Automated (test code = Bili Calculate message] T he system Indirect) which generated this result transmitted reference range : <=1.0. The reference range was not used to interpret this result as normal/abnormal . [facility] KlebergNmoliahWKXMUZDGB9886-30-06 06:27:00 Test Item Value Reference Range Interpretation Comments pH Justin (test code = pH Justin) 7.29 1 7.28-7.42 [facility] KlebergXhzzxkwGHQLYFKGS2626-41-19 06:27:00 Test Item Value Reference Range Interpretation Comments pCO2 Justin (test code = pCO2 Justin) 65 38-52 [facility] KlebergGfevggoWINMXVZLL7300-10-41 06:27:00 Test Item Value Reference Range Interpretation Comments pO2 Justin (test code = pO2 Justin) 37 20-49 [facility] KlebergHoamuvqUJQNMOIQU8721-12-44 06:27:00 Test Item Value Reference Range Interpretation Comments HCO3 Justin (test code = HCO3 Justin) 31 22-26 [facility] KlebergXikprdrJAWNUUJXQ0724-83-99 06:27:00 Test Item Value Reference Range Interpretation Comments BE Justin (test code = BE Justin) 3 -2-2 [facility] KlebergCwsexiuJIKKLJMQC7895-47-06 06:27:00 Test Item Value Reference Range Interpretation Comments O2 Sat Justin (calc) (test code = O2 Sat 63.0 40.0-70.0 Justin (calc)) [facility] KlebergFunvsiwHGMNDQBUY2844-38-75 06:27:00 Test Item Value Reference Range Interpretation Comments Temp Justin (test code = Temp Justin) 37.0 [place] 647753-02-27 06:27:00 Test Item Value Reference Range Interpretation Comments Lactic Acid Lvl (test code = Lactic 0.5 0.5-2.2 Acid Lvl) [facility]bergSwhnyrxIQNQULQGA1775-63-93 06:27:00 Test Item Value Reference Range Interpretation Comments TSH (test code = TSH) 0.403 0.360-3.740 [facility]AllenEfuuacdOQAOOEFZQX3179-73-65 06:27:00 Test Item Value Reference Range Interpretation Comments WBC X 10x3 (test code = WBC X 10x3) 5.9 3.7-10.4 [facility] McAllenWahhzzvNVUEPPGVWO8560-75-99 06:27:00 Test Item Value Reference Range Interpretation Comments RBC X 10x6 (test code = RBC X 10x6) 3.67 4.20-5.40 [facility] McAllenFatvwgfVAIRYOUXKW4800-30-83 06:27:00 Test Item Value Reference Range Interpretation Comments Hgb (test code = Hgb) 10.7 12.0-16.0 [facility] McAllenCrghvxhKQMLKPRFEY8087-94-39 06:27:00 Test Item Value Reference Range Interpretation Comments Hct (test code = Hct) 33.5 36.0-48.0 [facility] McAllenYrrfsraNYGUUCOCFV7170-67-97 06:27:00 Test Item Value Reference Range Interpretation Comments MCV (test code = MCV) 91.4 80.0-98.0 [facility] McAllenCsqbdpzYALTTIJMJF7994-38-06 06:27:00 Test Item Value Reference Range Interpretation Comments MCH (test code = MCH) 29.3 pg 27.0-31.0 [facility] McAllenMqgjipiWJVLNXVHAR3429-28-75 06:27:00 Test Item Value Reference Range Interpretation Comments MCHC (test code = MCHC) 32.0 32.0-36.0 [facility] McAllenEqkjogrOESEACJJDC2425-59-95 06:27:00 Test Item Value Reference Range Interpretation Comments RDW (test code = RDW) 13.7 11.5-14.5 [facility] McAllenFuibvzeUUACVZLHNE2502-44-64 06:27:00 Test Item Value Reference Range Interpretation Comments Platelet (test code = Platelet) 139 133-450 [facility] McAllenTtpwrxfZNGSYEOMNJ1160-24-77 06:27:00 Test Item Value Reference Range Interpretation Comments MPV (test code = MPV) 7.5 7.4-10.4 [facility] McAllenSnkjmwdWZJYYJUEQM2967-74-06 06:27:00 Test Item Value Reference Range Interpretation Comments ACT (TEG) Rapid (test code = ACT (TEG) 121 s 86-118 Rapid) [place] 391173-02-27 06:27:00 Test Item Value Reference Range Interpretation Comments Split Point Rapid (test code = Split 0.6 min Point Rapid) [place] 391173-02-27 06:27:00 Test Item Value Reference Range Interpretation Comments R-time Rapid (test code = R-time 0.8 min 0.4-0.7 Rapid) [place] [address]-02-27 06:27:00 Test Item Value Reference Range Interpretation Comments K-time Rapid (test code = K-time 0.8 min 0.6-2.3 Rapid) [place] [address]-02-27 06:27:00 Test Item Value Reference Range Interpretation Comments Angle Rapid (test code = Angle 79 degrees 64-80 Rapid) [place] 391173-02-27 06:27:00 Test Item Value Reference Range Interpretation Comments Max Amplitude Rapid (test code = Max 71 mm 52-71 Amplitude Rapid) [place] 391173-02-27 06:27:00 Test Item Value Reference Range Interpretation Comments G-value Rapid (test code = G-value 12.1 5.0-11.6 Rapid) [place] 391173-02-27 06:27:00 Test Item Value Reference Range Interpretation Comments Estimated % Lysis Rapid 0.0 See_Comment [Au tomated message] The (test code = Estimated syste m which generated % Lysis Rapid) this result t ransmitted reference range : <=7.5. The reference r christiano was not used to int erpret this result as normal/abnormal . [facility] McAllenZtyqtooCGHMGPNEHR8221-15-84 06:27:00 Test Item Value Reference Range Interpretation Comments RBC Morph (test code = Normal (11/27/22 12:27 RBC Morph) AM) [place] 391173-02-27 06:27:00 Test Item Value Reference Range Interpretation Comments Plt Morph (test code = Normal (11/27/22 12:27 Plt Morph) AM) [place] 391173-02-27 06:27:00 Test Item Value Reference Range Interpretation Comments Segs (test code = Segs) 60.1 45.0-75.0 [facility] McAllenOppfwevNKDSSEGDJK2397-79-10 06:27:00 Test Item Value Reference Range Interpretation Comments Lymphocytes (test code = Lymphocytes) 23.9 20.0-40.0 [place] 391173-02-27 06:27:00 Test Item Value Reference Range Interpretation Comments Monocytes (test code = Monocytes) 9.6 2.0-12.0 [facility] McAllenVvtvafzBYXZDYLDXV4115-82-12 06:27:00 Test Item Value Reference Range Interpretation Comments Eosinophils (test code = 5.2 See_Comment [A utomated message] The Eosinophils) system which ge nerated this result tra nsmitted reference range : <=4.0. The reference r christiano was not used to int erpret this result as normal/abnormal . [facility] McAllenJydkzgrXRKKRSWFHJ9029-10-05 06:27:00 Test Item Value Reference Range Interpretation Comments Basophils (test code = 1.2 See_Comment [Aut omated message] The Basophils) system which ge nerated this result tra nsmitted reference range : <=1.0. The reference r christiano was not used to int erpret this result as normal/abnormal . [facility] McAllenOoumcndWZWAMFULHR7172-08-17 06:27:00 Test Item Value Reference Range Interpretation Comments Neutrophils # (test code = Neutrophils 3.5 1.5-8.1 #) [facility] McAllenRpemlwaGGOATIFCPN5782-45-23 06:27:00 Test Item Value Reference Range Interpretation Comments Lymphocytes # (test code = Lymphocytes 1.4 1.0-5.5 #) [place] 391173-02-27 06:27:00 Test Item Value Reference Range Interpretation Comments Monocytes # (test code 0.6 See_Comment [Aut omated message] The = Monocytes #) system which generated this result tra nsmitted reference range : <=0.8. The reference r christiano was not used to int erpret this result as normal/abnormal . [facility]AllenEgimbxkGKXUYDWFKI5340-09-75 06:27:00 Test Item Value Reference Range Interpretation Comments Eosinophils # (test code 0.3 See_Comment [A utomated message] The = Eosinophils #) system ic h generated this result tra nsmitted reference range : <=0.5. The reference r christiano was not used to int erpret this result as normal/abnormal . [facility] McAllenQeirmmkAAIBLWYNNC8818-15-89 06:27:00 Test Item Value Reference Range Interpretation Comments Basophils # (test code 0.1 See_Comment [Aut omated message] The = Basophils #) system which generated this result tra nsmitted reference range : <=0.2. The reference r christiano was not used to int erpret this result as normal/abnormal . [place] 391173-02-27 06:27:00 Test Item Value Reference Range Interpretation Comments ACT (TEG) Rapid (test code = ACT (TEG) 121 s 86-118 Rapid) [place] 391173-02-27 06:27:00 Test Item Value Reference Range Interpretation Comments Split Point Rapid (test code = Split 0.6 min Point Rapid) [place] 391173-02-27 06:27:00 Test Item Value Reference Range Interpretation Comments R-time Rapid (test code = R-time 0.8 min 0.4-0.7 Rapid) [place] 391173-02-27 06:27:00 Test Item Value Reference Range Interpretation Comments K-time Rapid (test code = K-time 0.8 min 0.6-2.3 Rapid) [place] 391173-02-27 06:27:00 Test Item Value Reference Range Interpretation Comments Angle Rapid (test code = Angle 79 degrees 64-80 Rapid) [facility] McAllenZhswnlgZKPIDFPTZG0386-75-07 06:27:00 Test Item Value Reference Range Interpretation Comments Max Amplitude Rapid (test code = Max 71 mm 52-71 Amplitude Rapid) [place] 391173-02-27 06:27:00 Test Item Value Reference Range Interpretation Comments G-value Rapid (test code = G-value 12.1 5.0-11.6 Rapid) [place] 391173-02-27 06:27:00 Test Item Value Reference Range Interpretation Comments Estimated % Lysis Rapid 0.0 See_Comment [Au tomated message] The (test code = Estimated syste m which generated % Lysis Rapid) this result t ransmitted reference range : <=7.5. The reference r christiano was not used to int erpret this result as normal/abnormal . [place] 391173-02-27 06:27:00 Test Item Value Reference Range Interpretation Comments RBC Morph (test code = Normal (11/27/22 12:27 RBC Morph) AM) [place] 391173-02-27 06:27:00 Test Item Value Reference Range Interpretation Comments Plt Morph (test code = Normal (11/27/22 12:27 Plt Morph) AM) [place] 391173-02-27 06:27:00 Test Item Value Reference Range Interpretation Comments Basophils # (test code 0.1 See_Comment [Aut omated message] The = Basophils #) system which generated this result tra nsmitted reference range : <=0.2. The reference r christiano was not used to int erpret this result as normal/abnormal . [facility]2023-02-27 06:27:00 Test Item Value Reference Range Interpretation Comments Glucose Lvl (test code = Glucose Lvl) 85 70-99 [facility]2023-02-27 06:27:00 Test Item Value Reference Range Interpretation Comments BUN (test code = BUN) 28 7-22 [place] 468413-02-27 06:27:00 Test Item Value Reference Range Interpretation Comments Creatinine Lvl (test code = Creatinine 2.19 0.50-1.40 Lvl) [facility]2023-02-27 06:27:00 Test Item Value Reference Range Interpretation Comments Sodium Lvl (test code = Sodium Lvl) 143 135-145 [facility]2023-02-27 06:27:00 Test Item Value Reference Range Interpretation Comments Potassium Lvl (test code = Potassium 4.3 3.5-5.1 Lvl) [facility]2023-02-27 06:27:00 Test Item Value Reference Range Interpretation Comments Chloride Lvl (test code = Chloride Lvl) 110 95-109 [place] 468413-02-27 06:27:00 Test Item Value Reference Range Interpretation Comments CO2 (test code = CO2) 27 24-32 [place] 468413-02-27 06:27:00 Test Item Value Reference Range Interpretation Comments Calcium Lvl (test code = Calcium Lvl) 8.1 8.5-10.5 [place] 468413-02-27 06:27:00 Test Item Value Reference Range Interpretation Comments AGAP (test code = AGAP) 10.3 10.0-20.0 [place] 468413-02-27 06:27:00 Test Item Value Reference Range Interpretation Comments eGFR (test code = eGFR) 22 [place] 468413-02-27 06:27:00 Test Item Value Reference Range Interpretation Comments Total Protein (test code = Total 6.6 6.4-8.4 Protein) [place] 468413-02-27 06:27:00 Test Item Value Reference Range Interpretation Comments Albumin Lvl (test code = Albumin Lvl) 3.0 3.5-5.0 [place] 468413-02-27 06:27:00 Test Item Value Reference Range Interpretation Comments Globulin (test code = Globulin) 3.6 2.7-4.2 [place] [address]-02-27 06:27:00 Test Item Value Reference Range Interpretation Comments A/G Ratio (test code = A/G Ratio) 0.8 1 0.7-1.6 [place] [address]-02-27 06:27:00 Test Item Value Reference Range Interpretation Comments ALANINE AMINOTRANSFERASE 21 See_Comment [A utomated message] (test code = ALANINE The sys tem which AMINOTRANSFERASE) generated this result transmitted ref erence range: <=65. Th e reference range was not used to int erpret this result as normal/abnormal . [place] 468413-02-27 06:27:00 Test Item Value Reference Range Interpretation Comments AST (test code = AST) 17 See_Comment [Auto mated message] The system which ge nerated this result transmit sheba reference range : <=37. The reference range was not used to interpr et this result as edy l/abnormal. [place] 468413-02-27 06:27:00 Test Item Value Reference Range Interpretation Comments Alk Phos (test code = Alk Phos) 84 39-136 [place] 468413-02-27 06:27:00 Test Item Value Reference Range Interpretation Comments Bili Total (test code = Bili Total) 0.3 0.2-1.3 [place] 468413-02-27 06:27:00 Test Item Value Reference Range Interpretation Comments Bili Direct (test code no gt See_Comment [Aut omated message] The = Bili Direct) system which generated this result tra nsmitted reference range : <=0.3. The reference r christiano was not used to int erpret this result as edy l/abnormal. [place] 468413-02-27 06:27:00 Test Item Value Reference Range Interpretation Comments Bili Indirect Unable to See_Comment [Automated (test code = Bili Calculate message] T he system Indirect) which generated this result transmitted reference range : <=1.0. The reference range was not used to interpret this result as normal/abnormal . [facility]2023-02-27 06:27:00 Test Item Value Reference Range Interpretation Comments Lactic Acid Lvl (test code = Lactic 0.5 0.5-2.2 Acid Lvl) [place] 647753-02-27 06:27:00 Test Item Value Reference Range Interpretation Comments Total Protein (test code = Total 6.6 6.4-8.4 Protein) [facility]bergDapwuesAOKZTCXKB3556-14-51 06:27:00 Test Item Value Reference Range Interpretation Comments Albumin Lvl (test code = Albumin Lvl) 3.0 3.5-5.0 [place] 647753-02-27 06:27:00 Test Item Value Reference Range Interpretation Comments Globulin (test code = Globulin) 3.6 2.7-4.2 [place] 647753-02-27 06:27:00 Test Item Value Reference Range Interpretation Comments A/G Ratio (test code = A/G Ratio) 0.8 1 0.7-1.6 [facility]bergHfsmjfeCLQRORVTG6373-23-34 06:27:00 Test Item Value Reference Range Interpretation Comments ALANINE AMINOTRANSFERASE 21 See_Comment [A utomated message] (test code = ALANINE The sys tem which AMINOTRANSFERASE) generated this result transmitted ref erence range: <=65. Th e reference range was not used to int erpret this result as normal/abnormal . [facility] KlebergDojqeshGFHCVXZMJ8124-95-94 06:27:00 Test Item Value Reference Range Interpretation Comments AST (test code = AST) 17 See_Comment [Auto mated message] The system which ge nerated this result transmit sheba reference range : <=37. The reference range was not used to interpr et this result as edy l/abnormal. [place] 647753-02-27 06:27:00 Test Item Value Reference Range Interpretation Comments Alk Phos (test code = Alk Phos) 84 39-136 [facility] KlebergBrkqndfTOXWYINHV5422-92-87 06:27:00 Test Item Value Reference Range Interpretation Comments Bili Total (test code = Bili Total) 0.3 0.2-1.3 [facility] KlebergFzgdwubVOZMBVPJF3527-73-62 06:27:00 Test Item Value Reference Range Interpretation Comments Bili Direct (test code no gt See_Comment [Aut omated message] The = Bili Direct) system which generated this result tra nsmitted reference range : <=0.3. The reference r christiano was not used to int erpret this result as edy l/abnormal. [facility] KlebergZbemprbEHLBEHRFY9911-53-68 06:27:00 Test Item Value Reference Range Interpretation Comments Bili Indirect Unable to See_Comment [Automated (test code = Bili Calculate message] T he system Indirect) which generated this result transmitted reference range : <=1.0. The reference range was not used to interpret this result as normal/abnormal . [facility] KlebergHxtycvdTNKANOAUK6831-37-72 06:27:00 Test Item Value Reference Range Interpretation Comments pH Justin (test code = pH Justin) 7.29 1 7.28-7.42 [facility] KlebergVtmquwqUAICLHSMI2298-56-36 06:27:00 Test Item Value Reference Range Interpretation Comments pCO2 Justin (test code = pCO2 Justin) 65 38-52 [facility] KlebergKmwbjquKWVQTQQHW5350-81-96 06:27:00 Test Item Value Reference Range Interpretation Comments pO2 Justin (test code = pO2 Justin) 37 20-49 [facility] KlebergGbprgckVDZLWSVLI4836-14-16 06:27:00 Test Item Value Reference Range Interpretation Comments HCO3 Justin (test code = HCO3 Justin) 31 22-26 [facility]wayDjqstmcLCRRTLMWM5957-89-66 06:27:00 Test Item Value Reference Range Interpretation Comments BE Justin (test code = BE Justin) 3 -2-2 [facility] KlebergBpaziqtOBYSCVXGX4755-88-74 06:27:00 Test Item Value Reference Range Interpretation Comments O2 Sat Justin (calc) (test code = O2 Sat 63.0 40.0-70.0 Justin (calc)) [facility] KlebergVschpgzYPQAQESUB4723-79-22 06:27:00 Test Item Value Reference Range Interpretation Comments Temp Justin (test code = Temp Justin) 37.0 [facility] KlebergHahebxuQWWIVSXBK0752-96-98 06:27:00 Test Item Value Reference Range Interpretation Comments Lactic Acid Lvl (test code = Lactic 0.5 0.5-2.2 Acid Lvl) [facility]IxaxchbXDEFGRPRS0704-82-74 06:27:00 Test Item Value Reference Range Interpretation Comments TSH (test code = TSH) 0.403 0.360-3.740 [facility]IchmszqIRJHNYYTWN2508-71-72 06:27:00 Test Item Value Reference Range Interpretation Comments WBC X 10x3 (test code = WBC X 10x3) 5.9 3.7-10.4 [facility]AllenNechlaeZYVKOUBPYM7314-20-71 06:27:00 Test Item Value Reference Range Interpretation Comments RBC X 10x6 (test code = RBC X 10x6) 3.67 4.20-5.40 [facility]AllenEwgpgvwLNDGAIUJKL3617-61-04 06:27:00 Test Item Value Reference Range Interpretation Comments Hgb (test code = Hgb) 10.7 12.0-16.0 [place] 391173-02-27 06:27:00 Test Item Value Reference Range Interpretation Comments Hct (test code = Hct) 33.5 36.0-48.0 [facility] McAllenVxokaqwFXLUQYBPDM4603-77-19 06:27:00 Test Item Value Reference Range Interpretation Comments MCV (test code = MCV) 91.4 80.0-98.0 [facility] McAllenZzlfelvIKYXABNYQL4623-60-42 06:27:00 Test Item Value Reference Range Interpretation Comments MCH (test code = MCH) 29.3 pg 27.0-31.0 [facility] McAllenOyrnyuzCTQPUXOBBW9394-47-68 06:27:00 Test Item Value Reference Range Interpretation Comments MCHC (test code = MCHC) 32.0 32.0-36.0 [facility] McAllenDdedeuzMEXEIXNUDJ2488-64-21 06:27:00 Test Item Value Reference Range Interpretation Comments RDW (test code = RDW) 13.7 11.5-14.5 [place] 391173-02-27 06:27:00 Test Item Value Reference Range Interpretation Comments Platelet (test code = Platelet) 139 133-450 [facility] McAllenTlpyepqXAVEPNLALX5462-08-71 06:27:00 Test Item Value Reference Range Interpretation Comments MPV (test code = MPV) 7.5 7.4-10.4 [facility] McAllenUdwdfpnKLWSHJOCRP3017-63-46 06:27:00 Test Item Value Reference Range Interpretation Comments ACT (TEG) Rapid (test code = ACT (TEG) 121 s 86-118 Rapid) [place] 391173-02-27 06:27:00 Test Item Value Reference Range Interpretation Comments Split Point Rapid (test code = Split 0.6 min Point Rapid) [place] [address]-02-27 06:27:00 Test Item Value Reference Range Interpretation Comments R-time Rapid (test code = R-time 0.8 min 0.4-0.7 Rapid) [place] [address]-02-27 06:27:00 Test Item Value Reference Range Interpretation Comments K-time Rapid (test code = K-time 0.8 min 0.6-2.3 Rapid) [place] [address]-02-27 06:27:00 Test Item Value Reference Range Interpretation Comments Angle Rapid (test code = Angle 79 degrees 64-80 Rapid) [place] [address]-02-27 06:27:00 Test Item Value Reference Range Interpretation Comments Max Amplitude Rapid (test code = Max 71 mm 52-71 Amplitude Rapid) [place] [address]-02-27 06:27:00 Test Item Value Reference Range Interpretation Comments G-value Rapid (test code = G-value 12.1 5.0-11.6 Rapid) [place] [address]-02-27 06:27:00 Test Item Value Reference Range Interpretation Comments Estimated % Lysis Rapid 0.0 See_Comment [Au tomated message] The (test code = Estimated syste m which generated % Lysis Rapid) this result t ransmitted reference range : <=7.5. The reference r christiano was not used to int erpret this result as normal/abnormal . [place] 391173-02-27 06:27:00 Test Item Value Reference Range Interpretation Comments RBC Morph (test code = Normal (11/27/22 12:27 RBC Morph) AM) [place] [address]-02-27 06:27:00 Test Item Value Reference Range Interpretation Comments Plt Morph (test code = Normal (11/27/22 12:27 Plt Morph) AM) [place] [address]-02-27 06:27:00 Test Item Value Reference Range Interpretation Comments Segs (test code = Segs) 60.1 45.0-75.0 [place] 391173-02-27 06:27:00 Test Item Value Reference Range Interpretation Comments Lymphocytes (test code = Lymphocytes) 23.9 20.0-40.0 [facility]AllenNtjhvnoXXPSSASGYX8221-90-25 06:27:00 Test Item Value Reference Range Interpretation Comments Monocytes (test code = Monocytes) 9.6 2.0-12.0 [facility] McAllenIospasfFHOZJXJESX6334-71-72 06:27:00 Test Item Value Reference Range Interpretation Comments Eosinophils (test code = 5.2 See_Comment [A utomated message] The Eosinophils) system which ge nerated this result tra nsmitted reference range : <=4.0. The reference r christiano was not used to int erpret this result as normal/abnormal . [facility] McAllenOtoewkcAZWRPFMGIH5649-59-86 06:27:00 Test Item Value Reference Range Interpretation Comments Basophils (test code = 1.2 See_Comment [Aut omated message] The Basophils) system which ge nerated this result tra nsmitted reference range : <=1.0. The reference r christiano was not used to int erpret this result as normal/abnormal . [facility] McAllenDhptthxQRGLMCZEOE6279-72-34 06:27:00 Test Item Value Reference Range Interpretation Comments Neutrophils # (test code = Neutrophils 3.5 1.5-8.1 #) [facility]AllenHntlchdCHWPFPBHYK2050-76-20 06:27:00 Test Item Value Reference Range Interpretation Comments Lymphocytes # (test code = Lymphocytes 1.4 1.0-5.5 #) [facility] McAllenUiqeleuIIEEMDEIWT2734-65-15 06:27:00 Test Item Value Reference Range Interpretation Comments Monocytes # (test code 0.6 See_Comment [Aut omated message] The = Monocytes #) system which generated this result tra nsmitted reference range : <=0.8. The reference r christiano was not used to int erpret this result as normal/abnormal . [facility] McAllenAenszqhYQPDHMVGSA0760-06-05 06:27:00 Test Item Value Reference Range Interpretation Comments Eosinophils # (test code 0.3 See_Comment [A utomated message] The = Eosinophils #) system whic h generated this result tra nsmitted reference range : <=0.5. The reference r christiano was not used to int erpret this result as normal/abnormal . [place] 391173-02-27 06:27:00 Test Item Value Reference Range Interpretation Comments Basophils # (test code 0.1 See_Comment [Aut omated message] The = Basophils #) system which generated this result tra nsmitted reference range : <=0.2. The reference r christiano was not used to int erpret this result as normal/abnormal . [place] 391173-02-27 06:27:00 Test Item Value Reference Range Interpretation Comments ACT (TEG) Rapid (test code = ACT (TEG) 121 s 86-118 Rapid) [place] [address]-02-27 06:27:00 Test Item Value Reference Range Interpretation Comments Split Point Rapid (test code = Split 0.6 min Point Rapid) [place] 391173-02-27 06:27:00 Test Item Value Reference Range Interpretation Comments R-time Rapid (test code = R-time 0.8 min 0.4-0.7 Rapid) [place] [address]-02-27 06:27:00 Test Item Value Reference Range Interpretation Comments K-time Rapid (test code = K-time 0.8 min 0.6-2.3 Rapid) [place] [address]-02-27 06:27:00 Test Item Value Reference Range Interpretation Comments Angle Rapid (test code = Angle 79 degrees 64-80 Rapid) [place] [address]-02-27 06:27:00 Test Item Value Reference Range Interpretation Comments Max Amplitude Rapid (test code = Max 71 mm 52-71 Amplitude Rapid) [place] 391173-02-27 06:27:00 Test Item Value Reference Range Interpretation Comments G-value Rapid (test code = G-value 12.1 5.0-11.6 Rapid) [place] [address]-02-27 06:27:00 Test Item Value Reference Range Interpretation Comments Estimated % Lysis Rapid 0.0 See_Comment [Au tomated message] The (test code = Estimated syste m which generated % Lysis Rapid) this result t ransmitted reference range : <=7.5. The reference r christiano was not used to int erpret this result as normal/abnormal . [place] 391173-02-27 06:27:00 Test Item Value Reference Range Interpretation Comments RBC Morph (test code = Normal (11/27/22 12:27 RBC Morph) AM) [facility] McAllenXafqazgPDUMGZGWHJ9500-47-71 06:27:00 Test Item Value Reference Range Interpretation Comments Plt Morph (test code = Normal (11/27/22 12:27 Plt Morph) AM) [place] 391173-02-27 06:27:00 Test Item Value Reference Range Interpretation Comments Basophils # (test code 0.1 See_Comment [Aut omated message] The = Basophils #) system which generated this result tra nsmitted reference range : <=0.2. The reference r christiano was not used to int erpret this result as normal/abnormal . [facility]2023-02-27 06:27:00 Test Item Value Reference Range Interpretation Comments Glucose Lvl (test code = Glucose Lvl) 85 70-99 [place] 468413-02-27 06:27:00 Test Item Value Reference Range Interpretation Comments BUN (test code = BUN) 28 7-22 [place] 468413-02-27 06:27:00 Test Item Value Reference Range Interpretation Comments Creatinine Lvl (test code = Creatinine 2.19 0.50-1.40 Lvl) [place] 468413-02-27 06:27:00 Test Item Value Reference Range Interpretation Comments Sodium Lvl (test code = Sodium Lvl) 143 135-145 [facility]2023-02-27 06:27:00 Test Item Value Reference Range Interpretation Comments Potassium Lvl (test code = Potassium 4.3 3.5-5.1 Lvl) [place] 468413-02-27 06:27:00 Test Item Value Reference Range Interpretation Comments Chloride Lvl (test code = Chloride Lvl) 110 95-109 [place] 468413-02-27 06:27:00 Test Item Value Reference Range Interpretation Comments CO2 (test code = CO2) 27 24-32 [place] 468413-02-27 06:27:00 Test Item Value Reference Range Interpretation Comments Calcium Lvl (test code = Calcium Lvl) 8.1 8.5-10.5 [place] 468413-02-27 06:27:00 Test Item Value Reference Range Interpretation Comments AGAP (test code = AGAP) 10.3 10.0-20.0 [place] 468413-02-27 06:27:00 Test Item Value Reference Range Interpretation Comments eGFR (test code = eGFR) 22 [place] 468413-02-27 06:27:00 Test Item Value Reference Range Interpretation Comments Total Protein (test code = Total 6.6 6.4-8.4 Protein) [place] 468413-02-27 06:27:00 Test Item Value Reference Range Interpretation Comments Albumin Lvl (test code = Albumin Lvl) 3.0 3.5-5.0 [place] 468413-02-27 06:27:00 Test Item Value Reference Range Interpretation Comments Globulin (test code = Globulin) 3.6 2.7-4.2 [place] 468413-02-27 06:27:00 Test Item Value Reference Range Interpretation Comments A/G Ratio (test code = A/G Ratio) 0.8 1 0.7-1.6 [place] [address]-02-27 06:27:00 Test Item Value Reference Range Interpretation Comments ALANINE AMINOTRANSFERASE 21 See_Comment [A utomated message] (test code = ALANINE The sys tem which AMINOTRANSFERASE) generated this result transmitted ref erence range: <=65. Th e reference range was not used to int erpret this result as normal/abnormal . [facility]2023-02-27 06:27:00 Test Item Value Reference Range Interpretation Comments AST (test code = AST) 17 See_Comment [Auto mated message] The system which ge nerated this result transmit sheba reference range : <=37. The reference range was not used to interpr et this result as edy l/abnormal. [facility] CenterGlu[facility] AGVPR3335-95-47 06:27:00 Test Item Value Reference Range Interpretation Comments Alk Phos (test code = Alk Phos) 84 39-136 [place] 468413-02-27 06:27:00 Test Item Value Reference Range Interpretation Comments Bili Total (test code = Bili Total) 0.3 0.2-1.3 [place] 468413-02-27 06:27:00 Test Item Value Reference Range Interpretation Comments Bili Direct (test code no gt See_Comment [Aut omated message] The = Bili Direct) system which generated this result tra nsmitted reference range : <=0.3. The reference r christiano was not used to int erpret this result as edy l/abnormal. [facility] XHLYX0318-30-59 06:27:00 Test Item Value Reference Range Interpretation Comments Bili Indirect Unable to See_Comment [Automated (test code = Bili Calculate message] T he system Indirect) which generated this result transmitted reference range : <=1.0. The reference range was not used to interpret this result as normal/abnormal . [facility] PXKMS1227-48-83 06:27:00 Test Item Value Reference Range Interpretation Comments Lactic Acid Lvl (test code = Lactic 0.5 0.5-2.2 Acid Lvl) [facility]bergYgqqlnrIHKMMEYTQ6107-69-50 06:27:00 Test Item Value Reference Range Interpretation Comments Total Protein (test code = Total 6.6 6.4-8.4 Protein) [facility] KlebergUjtfuaiSJLNSSRYC5313-02-59 06:27:00 Test Item Value Reference Range Interpretation Comments Albumin Lvl (test code = Albumin Lvl) 3.0 3.5-5.0 [place] 647753-02-27 06:27:00 Test Item Value Reference Range Interpretation Comments Globulin (test code = Globulin) 3.6 2.7-4.2 [place] 647753-02-27 06:27:00 Test Item Value Reference Range Interpretation Comments A/G Ratio (test code = A/G Ratio) 0.8 1 0.7-1.6 [place] 647753-02-27 06:27:00 Test Item Value Reference Range Interpretation Comments ALANINE AMINOTRANSFERASE 21 See_Comment [A utomated message] (test code = ALANINE The sys tem which AMINOTRANSFERASE) generated this result transmitted ref erence range: <=65. Th e reference range was not used to int erpret this result as normal/abnormal . [facility] KlebergZkumthyBANBEHLFE4708-11-32 06:27:00 Test Item Value Reference Range Interpretation Comments AST (test code = AST) 17 See_Comment [Auto mated message] The system which ge nerated this result transmit sheba reference range : <=37. The reference range was not used to interpr et this result as edy l/abnormal. [facility] CenterWjmmzyxSNZMJHEJY5012-37-20 06:27:00 Test Item Value Reference Range Interpretation Comments Alk Phos (test code = Alk Phos) 84 39-136 [facility] KlebergLdbvivbYYMUTDXEA2802-75-27 06:27:00 Test Item Value Reference Range Interpretation Comments Bili Total (test code = Bili Total) 0.3 0.2-1.3 [facility] KlebergNgfndixQOQBOVVYT4420-74-92 06:27:00 Test Item Value Reference Range Interpretation Comments Bili Direct (test code no gt See_Comment [Aut omated message] The = Bili Direct) system which generated this result tra nsmitted reference range : <=0.3. The reference r christiano was not used to int erpret this result as edy l/abnormal. [facility] KlebergQkjqrfmAUAGLXUEW2975-67-35 06:27:00 Test Item Value Reference Range Interpretation Comments Bili Indirect Unable to See_Comment [Automated (test code = Bili Calculate message] T he system Indirect) which generated this result transmitted reference range : <=1.0. The reference range was not used to interpret this result as normal/abnormal . [facility] KlebergYgdnjpyMPOBLJJMO3156-22-49 06:27:00 Test Item Value Reference Range Interpretation Comments pH Justin (test code = pH Justin) 7.29 1 7.28-7.42 [facility] KlebergThcqtkeSAHBEKRXW2438-85-87 06:27:00 Test Item Value Reference Range Interpretation Comments pCO2 Justin (test code = pCO2 Justin) 65 38-52 [facility] KlebergSehykpvHCSNKYURK1138-90-54 06:27:00 Test Item Value Reference Range Interpretation Comments pO2 Justin (test code = pO2 Justin) 37 20-49 [facility] KlebergMdzhnhbLHRPURFCB8770-55-03 06:27:00 Test Item Value Reference Range Interpretation Comments HCO3 Justin (test code = HCO3 Justin) 31 22-26 [facility] KlebergJuzgcckMVJZOGVUV1489-54-53 06:27:00 Test Item Value Reference Range Interpretation Comments BE Justin (test code = BE Justin) 3 -2-2 [facility] KlebergJueomzmOWHQZRMFM6132-97-88 06:27:00 Test Item Value Reference Range Interpretation Comments O2 Sat Justin (calc) (test code = O2 Sat 63.0 40.0-70.0 Justin (calc)) [facility] KlebergBsexpnrECNPHLZKB2430-04-81 06:27:00 Test Item Value Reference Range Interpretation Comments Temp Justin (test code = Temp Justin) 37.0 [facility] KlebergJfprdvdHYPQCEOVQ0743-03-91 06:27:00 Test Item Value Reference Range Interpretation Comments Lactic Acid Lvl (test code = Lactic 0.5 0.5-2.2 Acid Lvl) [facility] KlebergVnvddcgHUKXPFZPP4696-26-25 06:27:00 Test Item Value Reference Range Interpretation Comments TSH (test code = TSH) 0.403 0.360-3.740 [place] 391173-02-27 06:27:00 Test Item Value Reference Range Interpretation Comments WBC X 10x3 (test code = WBC X 10x3) 5.9 3.7-10.4 [place] 391173-02-27 06:27:00 Test Item Value Reference Range Interpretation Comments RBC X 10x6 (test code = RBC X 10x6) 3.67 4.20-5.40 [place] 391173-02-27 06:27:00 Test Item Value Reference Range Interpretation Comments Hgb (test code = Hgb) 10.7 12.0-16.0 [facility]AllenRdmnrehQGOYICMLJL0090-25-27 06:27:00 Test Item Value Reference Range Interpretation Comments Hct (test code = Hct) 33.5 36.0-48.0 [facility] McAllenYrjwutqMRWYEZCTMT3246-24-82 06:27:00 Test Item Value Reference Range Interpretation Comments MCV (test code = MCV) 91.4 80.0-98.0 [facility] McAllenKzgdihsSKRXLQKEQA3717-94-91 06:27:00 Test Item Value Reference Range Interpretation Comments MCH (test code = MCH) 29.3 pg 27.0-31.0 [facility] McAllenMtkwazkHITEZYGYYF3849-76-05 06:27:00 Test Item Value Reference Range Interpretation Comments MCHC (test code = MCHC) 32.0 32.0-36.0 [facility] McAllenYywprohRCUQSFHVSL5941-86-24 06:27:00 Test Item Value Reference Range Interpretation Comments RDW (test code = RDW) 13.7 11.5-14.5 [place] 391173-02-27 06:27:00 Test Item Value Reference Range Interpretation Comments Platelet (test code = Platelet) 139 133-450 [facility] McAllenIhpylhoUSLCFUSPNN2294-82-22 06:27:00 Test Item Value Reference Range Interpretation Comments MPV (test code = MPV) 7.5 7.4-10.4 [facility] McAllenLwbbwwyRGEZYYWJPS6588-83-70 06:27:00 Test Item Value Reference Range Interpretation Comments ACT (TEG) Rapid (test code = ACT (TEG) 121 s 86-118 Rapid) [facility] McAllenBcobciwBUEMVVOCRV2573-09-56 06:27:00 Test Item Value Reference Range Interpretation Comments Split Point Rapid (test code = Split 0.6 min Point Rapid) [place] 391173-02-27 06:27:00 Test Item Value Reference Range Interpretation Comments R-time Rapid (test code = R-time 0.8 min 0.4-0.7 Rapid) [facility] McAllenCcxyuopQGFBWBLBAC0795-19-63 06:27:00 Test Item Value Reference Range Interpretation Comments K-time Rapid (test code = K-time 0.8 min 0.6-2.3 Rapid) [place] [id number] 06:27:00 Test Item Value Reference Range Interpretation Comments Angle Rapid (test code = Angle 79 degrees 64-80 Rapid) [facility]AllenPlzkbrwIMXRAOZUIY6875-18-91 06:27:00 Test Item Value Reference Range Interpretation Comments Max Amplitude Rapid (test code = Max 71 mm 52-71 Amplitude Rapid) [place] 391173-02-27 06:27:00 Test Item Value Reference Range Interpretation Comments G-value Rapid (test code = G-value 12.1 5.0-11.6 Rapid) [facility]AllenAkhwekuFUFCTMTODQ7022-08-69 06:27:00 Test Item Value Reference Range Interpretation Comments Estimated % Lysis Rapid 0.0 See_Comment [Au tomated message] The (test code = Estimated syste m which generated % Lysis Rapid) this result t ransmitted reference range : <=7.5. The reference r christiano was not used to int erpret this result as normal/abnormal . [facility] McAllenZaavrzfCSZNMXZJQY1869-32-29:27:00 Test Item Value Reference Range Interpretation Comments RBC Morph (test code = Normal (11/27/22 12:27 RBC Morph) AM) [place] 391173-02-27 06:27:00 Test Item Value Reference Range Interpretation Comments Plt Morph (test code = Normal (11/27/22 12:27 Plt Morph) AM) [facility] McAllenFlquzcdMORBWGYGVK2037-66-10 06:27:00 Test Item Value Reference Range Interpretation Comments Segs (test code = Segs) 60.1 45.0-75.0 [place] 391173-02-27 06:27:00 Test Item Value Reference Range Interpretation Comments Lymphocytes (test code = Lymphocytes) 23.9 20.0-40.0 [place] 391173-02-27 06:27:00 Test Item Value Reference Range Interpretation Comments Monocytes (test code = Monocytes) 9.6 2.0-12.0 [facility] McAllenVedyvdgWIESHRCWOO1159-43-28 06:27:00 Test Item Value Reference Range Interpretation Comments Eosinophils (test code = 5.2 See_Comment [A utomated message] The Eosinophils) system which ge nerated this result tra nsmitted reference range : <=4.0. The reference r christiano was not used to int erpret this result as normal/abnormal . [place] 391173-02-27 06:27:00 Test Item Value Reference Range Interpretation Comments Basophils (test code = 1.2 See_Comment [Aut omated message] The Basophils) system which ge nerated this result tra nsmitted reference range : <=1.0. The reference r christiano was not used to int erpret this result as normal/abnormal . [facility] McAllenOfkbgtnFGSOLAOUTQ1141-63-51 06:27:00 Test Item Value Reference Range Interpretation Comments Neutrophils # (test code = Neutrophils 3.5 1.5-8.1 #) [facility] McAllenOlouwumYEOROAPLRK9158-63-28 06:27:00 Test Item Value Reference Range Interpretation Comments Lymphocytes # (test code = Lymphocytes 1.4 1.0-5.5 #) [facility] McAllenWqwtgopZZDZOWJNVZ1022-35-33 06:27:00 Test Item Value Reference Range Interpretation Comments Monocytes # (test code 0.6 See_Comment [Aut omated message] The = Monocytes #) system which generated this result tra nsmitted reference range : <=0.8. The reference r christiano was not used to int erpret this result as normal/abnormal . [facility] McAllenTmveagqKCRPMZJDMI2833-70-76 06:27:00 Test Item Value Reference Range Interpretation Comments Eosinophils # (test code 0.3 See_Comment [A utomated message] The = Eosinophils #) system whic h generated this result tra nsmitted reference range : <=0.5. The reference r christiano was not used to int erpret this result as normal/abnormal . [facility] McAllenRbvlqhmWEICZMPSPJ0225-49-67 06:27:00 Test Item Value Reference Range Interpretation Comments Basophils # (test code 0.1 See_Comment [Aut omated message] The = Basophils #) system which generated this result tra nsmitted reference range : <=0.2. The reference r christiano was not used to int erpret this result as normal/abnormal . [facility] McAllenElcftwwQCEHBTQWDW2202-99-83 06:27:00 Test Item Value Reference Range Interpretation Comments ACT (TEG) Rapid (test code = ACT (TEG) 121 s 86-118 Rapid) [facility] McAllenFsbwdatRKZDGRIEII0209-90-17 06:27:00 Test Item Value Reference Range Interpretation Comments Split Point Rapid (test code = Split 0.6 min Point Rapid) [place] 391173-02-27 06:27:00 Test Item Value Reference Range Interpretation Comments R-time Rapid (test code = R-time 0.8 min 0.4-0.7 Rapid) [facility] McAllenEtcexzvDKCRVBASAG5082-49-44 06:27:00 Test Item Value Reference Range Interpretation Comments K-time Rapid (test code = K-time 0.8 min 0.6-2.3 Rapid) [place] 391173-02-27 06:27:00 Test Item Value Reference Range Interpretation Comments Angle Rapid (test code = Angle 79 degrees 64-80 Rapid) [facility] McAllenUdsspdeEPXGAEONOY1584-06-38 06:27:00 Test Item Value Reference Range Interpretation Comments Max Amplitude Rapid (test code = Max 71 mm 52-71 Amplitude Rapid) [facility] McAllenAchfsnpOYIUEQMVAC9490-86-91 06:27:00 Test Item Value Reference Range Interpretation Comments G-value Rapid (test code = G-value 12.1 5.0-11.6 Rapid) [place] 391173-02-27 06:27:00 Test Item Value Reference Range Interpretation Comments Estimated % Lysis Rapid 0.0 See_Comment [Au tomated message] The (test code = Estimated syste m which generated % Lysis Rapid) this result t ransmitted reference range : <=7.5. The reference r christiano was not used to int erpret this result as normal/abnormal . [facility] McAllenUabdmqhLMSNWTKLTQ5577-78-18 06:27:00 Test Item Value Reference Range Interpretation Comments RBC Morph (test code = Normal (11/27/22 12:27 RBC Morph) AM) [place] 391173-02-27 06:27:00 Test Item Value Reference Range Interpretation Comments Plt Morph (test code = Normal (11/27/22 12:27 Plt Morph) AM) [place] 391173-02-27 06:27:00 Test Item Value Reference Range Interpretation Comments Basophils # (test code 0.1 See_Comment [Aut omated message] The = Basophils #) system which generated this result tra nsmitted reference range : <=0.2. The reference r christiano was not used to int erpret this result as normal/abnormal . [place] 468413-02-27 06:27:00 Test Item Value Reference Range Interpretation Comments Glucose Lvl (test code = Glucose Lvl) 85 70-99 [place] 468413-02-27 06:27:00 Test Item Value Reference Range Interpretation Comments BUN (test code = BUN) 28 7-22 [place] 468413-02-27 06:27:00 Test Item Value Reference Range Interpretation Comments Creatinine Lvl (test code = Creatinine 2.19 0.50-1.40 Lvl) [place] 468413-02-27 06:27:00 Test Item Value Reference Range Interpretation Comments Sodium Lvl (test code = Sodium Lvl) 143 135-145 [place] 468413-02-27 06:27:00 Test Item Value Reference Range Interpretation Comments Potassium Lvl (test code = Potassium 4.3 3.5-5.1 Lvl) [place] 468413-02-27 06:27:00 Test Item Value Reference Range Interpretation Comments Chloride Lvl (test code = Chloride Lvl) 110 95-109 [place] 468413-02-27 06:27:00 Test Item Value Reference Range Interpretation Comments CO2 (test code = CO2) 27 24-32 [place] 468413-02-27 06:27:00 Test Item Value Reference Range Interpretation Comments Calcium Lvl (test code = Calcium Lvl) 8.1 8.5-10.5 [place] 468413-02-27 06:27:00 Test Item Value Reference Range Interpretation Comments AGAP (test code = AGAP) 10.3 10.0-20.0 [place] 468413-02-27 06:27:00 Test Item Value Reference Range Interpretation Comments eGFR (test code = eGFR) 22 [facility]2023-02-27 06:27:00 Test Item Value Reference Range Interpretation Comments Total Protein (test code = Total 6.6 6.4-8.4 Protein) [facility]2023-02-27 06:27:00 Test Item Value Reference Range Interpretation Comments Albumin Lvl (test code = Albumin Lvl) 3.0 3.5-5.0 [place] [address]-02-27 06:27:00 Test Item Value Reference Range Interpretation Comments Globulin (test code = Globulin) 3.6 2.7-4.2 [place] [address]-02-27 06:27:00 Test Item Value Reference Range Interpretation Comments A/G Ratio (test code = A/G Ratio) 0.8 1 0.7-1.6 [place] [address]-02-27 06:27:00 Test Item Value Reference Range Interpretation Comments ALANINE AMINOTRANSFERASE 21 See_Comment [A utomated message] (test code = ALANINE The sys tem which AMINOTRANSFERASE) generated this result transmitted ref erence range: <=65. Th e reference range was not used to int erpret this result as normal/abnormal . [place] [address]-02-27 06:27:00 Test Item Value Reference Range Interpretation Comments AST (test code = AST) 17 See_Comment [Auto mated message] The system which ge nerated this result transmit sheba reference range : <=37. The reference range was not used to interpr et this result as edy l/abnormal. [place] 468413-02-27 06:27:00 Test Item Value Reference Range Interpretation Comments Alk Phos (test code = Alk Phos) 84 39-136 [place] [address]-02-27 06:27:00 Test Item Value Reference Range Interpretation Comments Bili Total (test code = Bili Total) 0.3 0.2-1.3 [place] [address]-02-27 06:27:00 Test Item Value Reference Range Interpretation Comments Bili Direct (test code no gt See_Comment [Aut omated message] The = Bili Direct) system which generated this result tra nsmitted reference range : <=0.3. The reference r christiano was not used to int erpret this result as edy l/abnormal. [facility]2023-02-27 06:27:00 Test Item Value Reference Range Interpretation Comments Bili Indirect Unable to See_Comment [Automated (test code = Bili Calculate message] T he system Indirect) which generated this result transmitted reference range : <=1.0. The reference range was not used to interpret this result as normal/abnormal . [facility] [id number] 06:27:00 Test Item Value Reference Range Interpretation Comments Lactic Acid Lvl (test code = Lactic 0.5 0.5-2.2 Acid Lvl) [facility]OjqicptPXJFHBWGF4262-48-38 06:27:00 Test Item Value Reference Range Interpretation Comments Total Protein (test code = Total 6.6 6.4-8.4 Protein) [facility]bergJgjtmnrVYXOFWCXM5870-85-98 06:27:00 Test Item Value Reference Range Interpretation Comments Albumin Lvl (test code = Albumin Lvl) 3.0 3.5-5.0 [facility]bergLgqlfqnCFAKDGEKU2985-32-97 06:27:00 Test Item Value Reference Range Interpretation Comments Globulin (test code = Globulin) 3.6 2.7-4.2 [facility]bergFtuyquxMVPABGONX3355-92-97 06:27:00 Test Item Value Reference Range Interpretation Comments A/G Ratio (test code = A/G Ratio) 0.8 1 0.7-1.6 [facility]bergPigmbbaOBFDSUQOE2700-54-85 06:27:00 Test Item Value Reference Range Interpretation Comments ALANINE AMINOTRANSFERASE 21 See_Comment [A utomated message] (test code = ALANINE The sys tem which AMINOTRANSFERASE) generated this result transmitted ref erence range: <=65. Th e reference range was not used to int erpret this result as normal/abnormal . [facility] KlebergDakuowmZNAWZRVEF5288-38-46 06:27:00 Test Item Value Reference Range Interpretation Comments AST (test code = AST) 17 See_Comment [Auto mated message] The system which ge nerated this result transmit sheba reference range : <=37. The reference range was not used to interpr et this result as edy l/abnormal. [facility]bergDduhpzuYGWTEYGXS7376-28-90 06:27:00 Test Item Value Reference Range Interpretation Comments Alk Phos (test code = Alk Phos) 84 39-136 [place] 647753-02-27 06:27:00 Test Item Value Reference Range Interpretation Comments Bili Total (test code = Bili Total) 0.3 0.2-1.3 [facility] KlebergZnpfwleCYQCBAFVK9284-57-76 06:27:00 Test Item Value Reference Range Interpretation Comments Bili Direct (test code no gt See_Comment [Aut omated message] The = Bili Direct) system which generated this result tra nsmitted reference range : <=0.3. The reference r christiano was not used to int erpret this result as edy l/abnormal. [facility] KlebergTvqvhijWLCAIVTOV7125-70-07 06:27:00 Test Item Value Reference Range Interpretation Comments Bili Indirect Unable to See_Comment [Automated (test code = Bili Calculate message] T he system Indirect) which generated this result transmitted reference range : <=1.0. The reference range was not used to interpret this result as normal/abnormal . [facility] KlebergHoknoocLNJTVHQHB0150-64-58 06:27:00 Test Item Value Reference Range Interpretation Comments pH Justin (test code = pH Justin) 7.29 1 7.28-7.42 [facility] KlebergLyrduvdKUAIZUBEY3669-60-31 06:27:00 Test Item Value Reference Range Interpretation Comments pCO2 Justin (test code = pCO2 Justin) 65 38-52 [facility] KlebergOmejmsnMJRMGFCTB2759-71-36 06:27:00 Test Item Value Reference Range Interpretation Comments pO2 Justin (test code = pO2 Justin) 37 20-49 [facility] KlebergPskbquoELRXUHKCU5080-38-52 06:27:00 Test Item Value Reference Range Interpretation Comments HCO3 Justin (test code = HCO3 Justin) 31 22-26 [facility]lbvgvqSCDSKEOJL7680-14-51 06:27:00 Test Item Value Reference Range Interpretation Comments BE Justin (test code = BE Justin) 3 -2-2 [facility] KlebergErfjwgqBUOPWSLDT2972-46-21 06:27:00 Test Item Value Reference Range Interpretation Comments O2 Sat Justin (calc) (test code = O2 Sat 63.0 40.0-70.0 Justin (calc)) [facility]bergCssmngjZUBNTPZWN3173-56-09 06:27:00 Test Item Value Reference Range Interpretation Comments Temp Justin (test code = Temp Justin) 37.0 [facility] KlebergUqqbgtdMFJPGIVWH1915-81-25 06:27:00 Test Item Value Reference Range Interpretation Comments Lactic Acid Lvl (test code = Lactic 0.5 0.5-2.2 Acid Lvl) [facility] CenterTavgnkgSREWWJEDA8248-08-19 06:27:00 Test Item Value Reference Range Interpretation Comments TSH (test code = TSH) 0.403 0.360-3.740 [facility]WsqdrgxPYAFYYLIAX3134-94-98 06:27:00 Test Item Value Reference Range Interpretation Comments WBC X 10x3 (test code = WBC X 10x3) 5.9 3.7-10.4 [facility] McAllenQowbknbVTSJBUPXBO2576-02-45 06:27:00 Test Item Value Reference Range Interpretation Comments RBC X 10x6 (test code = RBC X 10x6) 3.67 4.20-5.40 [facility] McAllenBwssdyuAXAPZTXVMY4420-23-65 06:27:00 Test Item Value Reference Range Interpretation Comments Hgb (test code = Hgb) 10.7 12.0-16.0 [facility] McAllenWhbyhvePGBSRZOBVE2458-69-07 06:27:00 Test Item Value Reference Range Interpretation Comments Hct (test code = Hct) 33.5 36.0-48.0 [facility] McAllenLpokhkmPXRUCWABIC8072-90-35 06:27:00 Test Item Value Reference Range Interpretation Comments MCV (test code = MCV) 91.4 80.0-98.0 [facility] McAllenGphtzavRMOFMDITFQ2319-96-86 06:27:00 Test Item Value Reference Range Interpretation Comments MCH (test code = MCH) 29.3 pg 27.0-31.0 [facility] McAllenGblcewxMSQIMXANSQ6482-42-92 06:27:00 Test Item Value Reference Range Interpretation Comments MCHC (test code = MCHC) 32.0 32.0-36.0 [facility] McAllenYrckrnwYGFRTVFZKG7682-08-90 06:27:00 Test Item Value Reference Range Interpretation Comments RDW (test code = RDW) 13.7 11.5-14.5 [facility] McAllenTlsiugwDYJMTJAWWE1103-09-14 06:27:00 Test Item Value Reference Range Interpretation Comments Platelet (test code = Platelet) 139 133-450 [facility] McAllenVqktupfNSCGFVYLSR6420-32-47 06:27:00 Test Item Value Reference Range Interpretation Comments MPV (test code = MPV) 7.5 7.4-10.4 [facility] McAllenPmsrttqKKORMLYUNS6110-12-60 06:27:00 Test Item Value Reference Range Interpretation Comments ACT (TEG) Rapid (test code = ACT (TEG) 121 s 86-118 Rapid) [facility] McAllenFbpyevoYCKIQJXMGL7439-55-61 06:27:00 Test Item Value Reference Range Interpretation Comments Split Point Rapid (test code = Split 0.6 min Point Rapid) [facility] McAllenExahdqcZUPBNLOABO4884-99-49 06:27:00 Test Item Value Reference Range Interpretation Comments R-time Rapid (test code = R-time 0.8 min 0.4-0.7 Rapid) [place] 391173-02-27 06:27:00 Test Item Value Reference Range Interpretation Comments K-time Rapid (test code = K-time 0.8 min 0.6-2.3 Rapid) [place] [address]-02-27 06:27:00 Test Item Value Reference Range Interpretation Comments Angle Rapid (test code = Angle 79 degrees 64-80 Rapid) [place] 391173-02-27 06:27:00 Test Item Value Reference Range Interpretation Comments Max Amplitude Rapid (test code = Max 71 mm 52-71 Amplitude Rapid) [place] 391173-02-27 06:27:00 Test Item Value Reference Range Interpretation Comments G-value Rapid (test code = G-value 12.1 5.0-11.6 Rapid) [facility] McAllenVcydbxbJGJTLPGPSN9972-93-51 06:27:00 Test Item Value Reference Range Interpretation Comments Estimated % Lysis Rapid 0.0 See_Comment [Au tomated message] The (test code = Estimated syste m which generated % Lysis Rapid) this result t ransmitted reference range : <=7.5. The reference r christiano was not used to int erpret this result as normal/abnormal . [facility] McAllenSehmownEJSJSLXBFL1963-25-53 06:27:00 Test Item Value Reference Range Interpretation Comments RBC Morph (test code = Normal (11/27/22 12:27 RBC Morph) AM) [place] 391173-02-27 06:27:00 Test Item Value Reference Range Interpretation Comments Plt Morph (test code = Normal (11/27/22 12:27 Plt Morph) AM) [place] 391173-02-27 06:27:00 Test Item Value Reference Range Interpretation Comments Segs (test code = Segs) 60.1 45.0-75.0 [place] 391173-02-27 06:27:00 Test Item Value Reference Range Interpretation Comments Lymphocytes (test code = Lymphocytes) 23.9 20.0-40.0 [facility] McAllenTdxqlbbPZMUFTHLLH7457-65-24 06:27:00 Test Item Value Reference Range Interpretation Comments Monocytes (test code = Monocytes) 9.6 2.0-12.0 [facility] McAllenGvhxikaQAGWUAWRTG2857-18-35 06:27:00 Test Item Value Reference Range Interpretation Comments Eosinophils (test code = 5.2 See_Comment [A utomated message] The Eosinophils) system which ge nerated this result tra nsmitted reference range : <=4.0. The reference r christiaon was not used to int erpret this result as normal/abnormal . [facility] McAllenQjrjomyOYKENXHEIA7273-78-19 06:27:00 Test Item Value Reference Range Interpretation Comments Basophils (test code = 1.2 See_Comment [Aut omated message] The Basophils) system which ge nerated this result tra nsmitted reference range : <=1.0. The reference r christiano was not used to int erpret this result as normal/abnormal . [facility] McAllenObshgflOLUZDHSIES1787-65-80 06:27:00 Test Item Value Reference Range Interpretation Comments Neutrophils # (test code = Neutrophils 3.5 1.5-8.1 #) [facility] McAllenBslmtcpGEUKAEJGCN8819-35-59 06:27:00 Test Item Value Reference Range Interpretation Comments Lymphocytes # (test code = Lymphocytes 1.4 1.0-5.5 #) [facility] McAllenLdpgabmEPTXUPJJAK3748-72-13 06:27:00 Test Item Value Reference Range Interpretation Comments Monocytes # (test code 0.6 See_Comment [Aut omated message] The = Monocytes #) system which generated this result tra nsmitted reference range : <=0.8. The reference r christiano was not used to int erpret this result as normal/abnormal . [facility] McAllenLnqjgsiHMTHAEEZQJ1843-82-63 06:27:00 Test Item Value Reference Range Interpretation Comments Eosinophils # (test code 0.3 See_Comment [A utomated message] The = Eosinophils #) system whic h generated this result tra nsmitted reference range : <=0.5. The reference r christiano was not used to int erpret this result as normal/abnormal . [facility] McAllenGffcrawPNTQZYWPSN9493-24-62 06:27:00 Test Item Value Reference Range Interpretation Comments Basophils # (test code 0.1 See_Comment [Aut omated message] The = Basophils #) system which generated this result tra nsmitted reference range : <=0.2. The reference r christiano was not used to int erpret this result as normal/abnormal . [facility] McAllenHflnbrmTNSOJJWRRM5639-40-24 06:27:00 Test Item Value Reference Range Interpretation Comments ACT (TEG) Rapid (test code = ACT (TEG) 121 s 86-118 Rapid) [facility] McAllenCendaecDFOEPJGKBG0251-85-32 06:27:00 Test Item Value Reference Range Interpretation Comments Split Point Rapid (test code = Split 0.6 min Point Rapid) [facility] McAllenFjzjwmuFJOCEENPWA1406-07-42 06:27:00 Test Item Value Reference Range Interpretation Comments R-time Rapid (test code = R-time 0.8 min 0.4-0.7 Rapid) [facility] McAllenTkalihuQHVPHUAIBP4400-53-41 06:27:00 Test Item Value Reference Range Interpretation Comments K-time Rapid (test code = K-time 0.8 min 0.6-2.3 Rapid) [facility] McAllenTttppveYMEDSQYOVH8621-89-64 06:27:00 Test Item Value Reference Range Interpretation Comments Angle Rapid (test code = Angle 79 degrees 64-80 Rapid) [facility] McAllenYuzyghgIREQJLPUPN1074-71-93 06:27:00 Test Item Value Reference Range Interpretation Comments Max Amplitude Rapid (test code = Max 71 mm 52-71 Amplitude Rapid) [facility] McAllenDuhwrnvFYMQJWPYPI2618-35-33 06:27:00 Test Item Value Reference Range Interpretation Comments G-value Rapid (test code = G-value 12.1 5.0-11.6 Rapid) [facility] McAllenEuawjeaADUUYDBZJG7215-29-39 06:27:00 Test Item Value Reference Range Interpretation Comments Estimated % Lysis Rapid 0.0 See_Comment [Au tomated message] The (test code = Estimated syste m which generated % Lysis Rapid) this result t ransmitted reference range : <=7.5. The reference r christiano was not used to int erpret this result as normal/abnormal . [facility] McAllenRdkzywvGOYPEKFFIV7860-92-02 06:27:00 Test Item Value Reference Range Interpretation Comments RBC Morph (test code = Normal (11/27/22 12:27 RBC Morph) AM) [facility] McAllenKwvpkekIOEVIWRYRY9488-60-46 06:27:00 Test Item Value Reference Range Interpretation Comments Plt Morph (test code = Normal (11/27/22 12:27 Plt Morph) AM) [facility]aultDebhtvxVFMGSBYCJP4697-45-43 06:27:00 Test Item Value Reference Range Interpretation Comments Basophils # (test code 0.1 See_Comment [Aut omated message] The = Basophils #) system which generated this result tra nsmitted reference range : <=0.2. The reference r christiano was not used to int erpret this result as normal/abnormal . [facility]2023-02-27 06:27:00 Test Item Value Reference Range Interpretation Comments Glucose Lvl (test code = Glucose Lvl) 85 70-99 [facility]2023-02-27 06:27:00 Test Item Value Reference Range Interpretation Comments BUN (test code = BUN) 28 7-22 [place] 468413-02-27 06:27:00 Test Item Value Reference Range Interpretation Comments Creatinine Lvl (test code = Creatinine 2.19 0.50-1.40 Lvl) [facility]2023-02-27 06:27:00 Test Item Value Reference Range Interpretation Comments Sodium Lvl (test code = Sodium Lvl) 143 135-145 [facility]2023-02-27 06:27:00 Test Item Value Reference Range Interpretation Comments Potassium Lvl (test code = Potassium 4.3 3.5-5.1 Lvl) [facility]2023-02-27 06:27:00 Test Item Value Reference Range Interpretation Comments Chloride Lvl (test code = Chloride Lvl) 110 95-109 [place] 468413-02-27 06:27:00 Test Item Value Reference Range Interpretation Comments CO2 (test code = CO2) 27 24-32 [place] 468413-02-27 06:27:00 Test Item Value Reference Range Interpretation Comments Calcium Lvl (test code = Calcium Lvl) 8.1 8.5-10.5 [facility]2023-02-27 06:27:00 Test Item Value Reference Range Interpretation Comments AGAP (test code = AGAP) 10.3 10.0-20.0 [place] 468413-02-27 06:27:00 Test Item Value Reference Range Interpretation Comments eGFR (test code = eGFR) 22 [facility]Glu[facility] MDKAI1729-99-60 06:27:00 Test Item Value Reference Range Interpretation Comments Total Protein (test code = Total 6.6 6.4-8.4 Protein) [place] [id number] 06:27:00 Test Item Value Reference Range Interpretation Comments Albumin Lvl (test code = Albumin Lvl) 3.0 3.5-5.0 [place] 468413-02-27 06:27:00 Test Item Value Reference Range Interpretation Comments Globulin (test code = Globulin) 3.6 2.7-4.2 [facility] [id number] 06:27:00 Test Item Value Reference Range Interpretation Comments A/G Ratio (test code = A/G Ratio) 0.8 1 0.7-1.6 [place] 468413-02-27 06:27:00 Test Item Value Reference Range Interpretation Comments ALANINE AMINOTRANSFERASE 21 See_Comment [A utomated message] (test code = ALANINE The sys tem which AMINOTRANSFERASE) generated this result transmitted ref erence range: <=65. Th e reference range was not used to int erpret this result as normal/abnormal . [facility] [id number] 06:27:00 Test Item Value Reference Range Interpretation Comments AST (test code = AST) 17 See_Comment [Auto mated message] The system which ge nerated this result transmit sheba reference range : <=37. The reference range was not used to interpr et this result as edy l/abnormal. [facility] [id number] 06:27:00 Test Item Value Reference Range Interpretation Comments Alk Phos (test code = Alk Phos) 84 39-136 [facility] [id number] 06:27:00 Test Item Value Reference Range Interpretation Comments Bili Total (test code = Bili Total) 0.3 0.2-1.3 [facility] [id number] 06:27:00 Test Item Value Reference Range Interpretation Comments Bili Direct (test code no gt See_Comment [Aut omated message] The = Bili Direct) system which generated this result tra nsmitted reference range : <=0.3. The reference r christiano was not used to int erpret this result as edy l/abnormal. [facility] [id number] 06:27:00 Test Item Value Reference Range Interpretation Comments Bili Indirect Unable to See_Comment [Automated (test code = Bili Calculate message] T he system Indirect) which generated this result transmitted reference range : <=1.0. The reference range was not used to interpret this result as normal/abnormal . [facility]2023-02-27 06:27:00 Test Item Value Reference Range Interpretation Comments Lactic Acid Lvl (test code = Lactic 0.5 0.5-2.2 Acid Lvl) [facility]bergWhpuhjpMUTWHIVNN8254-07-[facility] 06:27:00 Test Item Value Reference Range Interpretation Comments Total Protein (test code = Total 6.6 6.4-8.4 Protein) [facility] KlebergOyvwnksMDZZVYQVL5541-34-96 06:27:00 Test Item Value Reference Range Interpretation Comments Albumin Lvl (test code = Albumin Lvl) 3.0 3.5-5.0 [place] 647753-02-27 06:27:00 Test Item Value Reference Range Interpretation Comments Globulin (test code = Globulin) 3.6 2.7-4.2 [place] 647753-02-27 06:27:00 Test Item Value Reference Range Interpretation Comments A/G Ratio (test code = A/G Ratio) 0.8 1 0.7-1.6 [facility] KlebergQppaflbNWZVUUHAZ1905-05-61 06:27:00 Test Item Value Reference Range Interpretation Comments ALANINE AMINOTRANSFERASE 21 See_Comment [A utomated message] (test code = ALANINE The sys tem which AMINOTRANSFERASE) generated this result transmitted ref erence range: <=65. Th e reference range was not used to int erpret this result as normal/abnormal . [facility] KlebergIvokdgrUCXWPXSHJ8846-62-07 06:27:00 Test Item Value Reference Range Interpretation Comments AST (test code = AST) 17 See_Comment [Auto mated message] The system which ge nerated this result transmit sheba reference range : <=37. The reference range was not used to interpr et this result as edy l/abnormal. [facility] KlebergNliyqgoJIUMNYCEE2320-55-12 06:27:00 Test Item Value Reference Range Interpretation Comments Alk Phos (test code = Alk Phos) 84 39-136 [facility] KlebergSiccoqfCVLGSUSDF7745-77-67 06:27:00 Test Item Value Reference Range Interpretation Comments Bili Total (test code = Bili Total) 0.3 0.2-1.3 [facility] KlebergKjtwvtcCSPEVWUSZ8196-71-67 06:27:00 Test Item Value Reference Range Interpretation Comments Bili Direct (test code no gt See_Comment [Aut omated message] The = Bili Direct) system which generated this result tra nsmitted reference range : <=0.3. The reference r christiano was not used to int erpret this result as edy l/abnormal. [facility] KlebergRfmezamQRWDANOFH9446-00-00 06:27:00 Test Item Value Reference Range Interpretation Comments Bili Indirect Unable to See_Comment [Automated (test code = Bili Calculate message] T he system Indirect) which generated this result transmitted reference range : <=1.0. The reference range was not used to interpret this result as normal/abnormal . [facility] KlebergTcfamksCWEZACAVF2853-17-67 06:27:00 Test Item Value Reference Range Interpretation Comments pH Justin (test code = pH Justin) 7.29 1 7.28-7.42 [facility] KlebergXumgzxgFDVXCAMMK2836-38-24 06:27:00 Test Item Value Reference Range Interpretation Comments pCO2 Justin (test code = pCO2 Justin) 65 38-52 [facility] KlebergDnlgnhuIKBGUHJVW1679-73-19 06:27:00 Test Item Value Reference Range Interpretation Comments pO2 Justin (test code = pO2 Justin) 37 20-49 [facility] KlebergAqbnhghVXHXTRJLF5131-61-54 06:27:00 Test Item Value Reference Range Interpretation Comments HCO3 Justin (test code = HCO3 Justin) 31 22-26 [facility] KlebergYtwjcaqYMBRIZSPI7801-28-85 06:27:00 Test Item Value Reference Range Interpretation Comments BE Justin (test code = BE Justin) 3 -2-2 [facility] KlebergDlgfasbAUQITRHNV0979-58-38 06:27:00 Test Item Value Reference Range Interpretation Comments O2 Sat Justin (calc) (test code = O2 Sat 63.0 40.0-70.0 Justin (calc)) [facility] KlebergGmrpdibJWXTAUCUE8474-38-43 06:27:00 Test Item Value Reference Range Interpretation Comments Temp Justin (test code = Temp Justin) 37.0 [facility] KlebergZvqaueyCLPSIINJK6525-95-10 06:27:00 Test Item Value Reference Range Interpretation Comments Lactic Acid Lvl (test code = Lactic 0.5 0.5-2.2 Acid Lvl) [facility] CenterOitrpofJTJGORFEY0672-46-97 06:27:00 Test Item Value Reference Range Interpretation Comments TSH (test code = TSH) 0.403 0.360-3.740 [facility]AllenOhnxmgrPMMYXKQXPN1397-44-60 06:27:00 Test Item Value Reference Range Interpretation Comments WBC X 10x3 (test code = WBC X 10x3) 5.9 3.7-10.4 [facility] McAllenTodalnnPJKSXYXBAS3548-67-34 06:27:00 Test Item Value Reference Range Interpretation Comments RBC X 10x6 (test code = RBC X 10x6) 3.67 4.20-5.40 [place] 391173-02-27 06:27:00 Test Item Value Reference Range Interpretation Comments Hgb (test code = Hgb) 10.7 12.0-16.0 [place] 391173-02-27 06:27:00 Test Item Value Reference Range Interpretation Comments Hct (test code = Hct) 33.5 36.0-48.0 [facility] McAllenHegzcvwXVZDXGXIBG9970-31-22 06:27:00 Test Item Value Reference Range Interpretation Comments MCV (test code = MCV) 91.4 80.0-98.0 [facility] McAllenLujgnmmISBAFJMZPP2299-84-11 06:27:00 Test Item Value Reference Range Interpretation Comments MCH (test code = MCH) 29.3 pg 27.0-31.0 [facility] McAllenDtiytnvSTHKAAKMJL1175-78-54 06:27:00 Test Item Value Reference Range Interpretation Comments MCHC (test code = MCHC) 32.0 32.0-36.0 [facility] McAllenPbkdtiwOWRDVTUIZB2678-35-24 06:27:00 Test Item Value Reference Range Interpretation Comments RDW (test code = RDW) 13.7 11.5-14.5 [facility] McAllenNckhgueYVOYQVTGTQ6177-78-99 06:27:00 Test Item Value Reference Range Interpretation Comments Platelet (test code = Platelet) 139 133-450 [facility] McAllenKtestitDGXNYQRPDS8180-73-74 06:27:00 Test Item Value Reference Range Interpretation Comments MPV (test code = MPV) 7.5 7.4-10.4 [place] 391173-02-27 06:27:00 Test Item Value Reference Range Interpretation Comments ACT (TEG) Rapid (test code = ACT (TEG) 121 s 86-118 Rapid) [place] 391173-02-27 06:27:00 Test Item Value Reference Range Interpretation Comments Split Point Rapid (test code = Split 0.6 min Point Rapid) [place] 391173-02-27 06:27:00 Test Item Value Reference Range Interpretation Comments R-time Rapid (test code = R-time 0.8 min 0.4-0.7 Rapid) [place] 391173-02-27 06:27:00 Test Item Value Reference Range Interpretation Comments K-time Rapid (test code = K-time 0.8 min 0.6-2.3 Rapid) [place] [address]-02-27 06:27:00 Test Item Value Reference Range Interpretation Comments Angle Rapid (test code = Angle 79 degrees 64-80 Rapid) [place] [address]-02-27 06:27:00 Test Item Value Reference Range Interpretation Comments Max Amplitude Rapid (test code = Max 71 mm 52-71 Amplitude Rapid) [place] 391173-02-27 06:27:00 Test Item Value Reference Range Interpretation Comments G-value Rapid (test code = G-value 12.1 5.0-11.6 Rapid) [place] [address]-02-27 06:27:00 Test Item Value Reference Range Interpretation Comments Estimated % Lysis Rapid 0.0 See_Comment [Au tomated message] The (test code = Estimated syste m which generated % Lysis Rapid) this result t ransmitted reference range : <=7.5. The reference r christiano was not used to int erpret this result as normal/abnormal . [facility] McAllenGqckyheTEVPRYEETO0911-09-21:27:00 Test Item Value Reference Range Interpretation Comments RBC Morph (test code = Normal (11/27/22 12:27 RBC Morph) AM) [place] 391173-02-27 06:27:00 Test Item Value Reference Range Interpretation Comments Plt Morph (test code = Normal (11/27/22 12:27 Plt Morph) AM) [place] 391173-02-27 06:27:00 Test Item Value Reference Range Interpretation Comments Segs (test code = Segs) 60.1 45.0-75.0 [place] 391173-02-27 06:27:00 Test Item Value Reference Range Interpretation Comments Lymphocytes (test code = Lymphocytes) 23.9 20.0-40.0 [facility] McAllenKehtrztZSKQWQIUDP5039-43-80 06:27:00 Test Item Value Reference Range Interpretation Comments Monocytes (test code = Monocytes) 9.6 2.0-12.0 [facility] McAllenYsefkruRQLRUSSQMF4541-43-89 06:27:00 Test Item Value Reference Range Interpretation Comments Eosinophils (test code = 5.2 See_Comment [A utomated message] The Eosinophils) system which ge nerated this result tra nsmitted reference range : <=4.0. The reference r christiano was not used to int erpret this result as normal/abnormal . [facility] McAllenUoqvypwJXURFEIBLV6498-33-25 06:27:00 Test Item Value Reference Range Interpretation Comments Basophils (test code = 1.2 See_Comment [Aut omated message] The Basophils) system which ge nerated this result tra nsmitted reference range : <=1.0. The reference r christiano was not used to int erpret this result as normal/abnormal . [facility] McAllenSvjrkwuDPKHJRXJED7928-18-38 06:27:00 Test Item Value Reference Range Interpretation Comments Neutrophils # (test code = Neutrophils 3.5 1.5-8.1 #) [facility] McAllenRlgwtyeOREKWUPSLK2913-96-93 06:27:00 Test Item Value Reference Range Interpretation Comments Lymphocytes # (test code = Lymphocytes 1.4 1.0-5.5 #) [facility] McAllenDapguqcDPAUBZBXIW0036-53-15 06:27:00 Test Item Value Reference Range Interpretation Comments Monocytes # (test code 0.6 See_Comment [Aut omated message] The = Monocytes #) system which generated this result tra nsmitted reference range : <=0.8. The reference r christiano was not used to int erpret this result as normal/abnormal . [facility] McAllenCuzmmxuTYEAVXZJSH9192-42-16 06:27:00 Test Item Value Reference Range Interpretation Comments Eosinophils # (test code 0.3 See_Comment [A utomated message] The = Eosinophils #) system whic h generated this result tra nsmitted reference range : <=0.5. The reference r christiano was not used to int erpret this result as normal/abnormal . [facility] McAllenUclbaaaVRBQQFKSVF6038-13-77 06:27:00 Test Item Value Reference Range Interpretation Comments Basophils # (test code 0.1 See_Comment [Aut omated message] The = Basophils #) system which generated this result tra nsmitted reference range : <=0.2. The reference r christiano was not used to int erpret this result as normal/abnormal . [facility] McAllenOfrekabMPONGRZDOU8409-42-60 06:27:00 Test Item Value Reference Range Interpretation Comments ACT (TEG) Rapid (test code = ACT (TEG) 121 s 86-118 Rapid) [place] 391173-02-27 06:27:00 Test Item Value Reference Range Interpretation Comments Split Point Rapid (test code = Split 0.6 min Point Rapid) [place] 391173-02-27 06:27:00 Test Item Value Reference Range Interpretation Comments R-time Rapid (test code = R-time 0.8 min 0.4-0.7 Rapid) [place] 391173-02-27 06:27:00 Test Item Value Reference Range Interpretation Comments K-time Rapid (test code = K-time 0.8 min 0.6-2.3 Rapid) [place] 391173-02-27 06:27:00 Test Item Value Reference Range Interpretation Comments Angle Rapid (test code = Angle 79 degrees 64-80 Rapid) [facility]AllenNekybbqBOWTHSQWOM8150-59-57 06:27:00 Test Item Value Reference Range Interpretation Comments Max Amplitude Rapid (test code = Max 71 mm 52-71 Amplitude Rapid) [facility] McAllenNpekmynIBMXRRFRSN7860-63-36 06:27:00 Test Item Value Reference Range Interpretation Comments G-value Rapid (test code = G-value 12.1 5.0-11.6 Rapid) [place] 391173-02-27 06:27:00 Test Item Value Reference Range Interpretation Comments Estimated % Lysis Rapid 0.0 See_Comment [Au tomated message] The (test code = Estimated syste m which generated % Lysis Rapid) this result t ransmitted reference range : <=7.5. The reference r christiano was not used to int erpret this result as normal/abnormal . [facility] McAllenSmynnpeCFNLZHECSS6988-21-13 06:27:00 Test Item Value Reference Range Interpretation Comments RBC Morph (test code = Normal (11/27/22 12:27 RBC Morph) AM) [place] 391173-02-27 06:27:00 Test Item Value Reference Range Interpretation Comments Plt Morph (test code = Normal (11/27/22 12:27 Plt Morph) AM) [facility]SdziujwJMGUHXQIKB6660-90-57 06:27:00 Test Item Value Reference Range Interpretation Comments Basophils # (test code 0.1 See_Comment [Aut omated message] The = Basophils #) system which generated this result tra nsmitted reference range : <=0.2. The reference r christiano was not used to int erpret this result as normal/abnormal . [facility]2023-02-27 06:27:00 Test Item Value Reference Range Interpretation Comments Glucose Lvl (test code = Glucose Lvl) 85 70-99 [place] 468413-02-27 06:27:00 Test Item Value Reference Range Interpretation Comments BUN (test code = BUN) 28 - [place] 468413-02-27 06:27:00 Test Item Value Reference Range Interpretation Comments Creatinine Lvl (test code = Creatinine 2.19 0.50-1.40 Lvl) [place] 468413-02-27 06:27:00 Test Item Value Reference Range Interpretation Comments Sodium Lvl (test code = Sodium Lvl) 143 135-145 [facility]2023-02-27 06:27:00 Test Item Value Reference Range Interpretation Comments Potassium Lvl (test code = Potassium 4.3 3.5-5.1 Lvl) [facility]2023-02-27 06:27:00 Test Item Value Reference Range Interpretation Comments Chloride Lvl (test code = Chloride Lvl) 110 95-109 [place] 468413-02-27 06:27:00 Test Item Value Reference Range Interpretation Comments CO2 (test code = CO2) 24-32 [place] 468413-02-27 06:27:00 Test Item Value Reference Range Interpretation Comments Calcium Lvl (test code = Calcium Lvl) 8.1 8.5-10.5 [place] 468413-02-27 06:27:00 Test Item Value Reference Range Interpretation Comments AGAP (test code = AGAP) 10.3 10.0-20.0 [place] 468413-02-27 06:27:00 Test Item Value Reference Range Interpretation Comments eGFR (test code = eGFR) [place] 468413-02-27 06:27:00 Test Item Value Reference Range Interpretation Comments Total Protein (test code = Total 6.6 6.4-8.4 Protein) [place] 468413-02-27 06:27:00 Test Item Value Reference Range Interpretation Comments Albumin Lvl (test code = Albumin Lvl) 3.0 3.5-5.0 [place] [address]-02-27 06:27:00 Test Item Value Reference Range Interpretation Comments Globulin (test code = Globulin) 3.6 2.7-4.2 [place] [address]-02-27 06:27:00 Test Item Value Reference Range Interpretation Comments A/G Ratio (test code = A/G Ratio) 0.8 1 0.7-1.6 [place] [address]-02-27 06:27:00 Test Item Value Reference Range Interpretation Comments ALANINE AMINOTRANSFERASE 21 See_Comment [A utomated message] (test code = ALANINE The sys tem which AMINOTRANSFERASE) generated this result transmitted ref erence range: <=65. Th e reference range was not used to int erpret this result as normal/abnormal . [facility] OOJZU0134-26-02 06:27:00 Test Item Value Reference Range Interpretation Comments AST (test code = AST) 17 See_Comment [Auto mated message] The system which ge nerated this result transmit sheba reference range : <=37. The reference range was not used to interpr et this result as edy l/abnormal. [facility] [id number] 06:27:00 Test Item Value Reference Range Interpretation Comments Alk Phos (test code = Alk Phos) 84 39-136 [facility] [id number] 06:27:00 Test Item Value Reference Range Interpretation Comments Bili Total (test code = Bili Total) 0.3 0.2-1.3 [facility] [id number] 06:27:00 Test Item Value Reference Range Interpretation Comments Bili Direct (test code no gt See_Comment [Aut omated message] The = Bili Direct) system which generated this result tra nsmitted reference range : <=0.3. The reference r christiano was not used to int erpret this result as edy l/abnormal. [facility] [id number] 06:27:00 Test Item Value Reference Range Interpretation Comments Bili Indirect Unable to See_Comment [Automated (test code = Bili Calculate message] T he system Indirect) which generated this result transmitted reference range : <=1.0. The reference range was not used to interpret this result as normal/abnormal . [facility]2023-02-27 06:27:00 Test Item Value Reference Range Interpretation Comments Lactic Acid Lvl (test code = Lactic 0.5 0.5-2.2 Acid Lvl) [facility]bergFuwhnpdFUFTNANYW3213-69-41 06:27:00 Test Item Value Reference Range Interpretation Comments Total Protein (test code = Total 6.6 6.4-8.4 Protein) [facility] KlebergZqutyrwOTSHWBCOO6259-84-42 06:27:00 Test Item Value Reference Range Interpretation Comments Albumin Lvl (test code = Albumin Lvl) 3.0 3.5-5.0 [facility] KlebergDpydlipWYQJKNAAF9273-11-81 06:27:00 Test Item Value Reference Range Interpretation Comments Globulin (test code = Globulin) 3.6 2.7-4.2 [facility] KlebergNlzdljiYJSZQFTOL8708-74-98 06:27:00 Test Item Value Reference Range Interpretation Comments A/G Ratio (test code = A/G Ratio) 0.8 1 0.7-1.6 [facility] KlebergBukzmpqTYUMRZNYT7182-99-50 06:27:00 Test Item Value Reference Range Interpretation Comments ALANINE AMINOTRANSFERASE 21 See_Comment [A utomated message] (test code = ALANINE The sys tem which AMINOTRANSFERASE) generated this result transmitted ref erence range: <=65. Th e reference range was not used to int erpret this result as normal/abnormal . [facility] KlebergFqlybnrZYQTUPPJV4204-07-25 06:27:00 Test Item Value Reference Range Interpretation Comments AST (test code = AST) 17 See_Comment [Auto mated message] The system which ge nerated this result transmit sheba reference range : <=37. The reference range was not used to interpr et this result as edy l/abnormal. [facility] KlebergXcrmjfmGIWWNCQLX1366-94-99 06:27:00 Test Item Value Reference Range Interpretation Comments Alk Phos (test code = Alk Phos) 84 39-136 [facility] KlebergZpzwbtzWXWQQVBRL3079-83-09 06:27:00 Test Item Value Reference Range Interpretation Comments Bili Total (test code = Bili Total) 0.3 0.2-1.3 [facility] KlebergYeuwchhFFKPWOGWX2613-21-31 06:27:00 Test Item Value Reference Range Interpretation Comments Bili Direct (test code no gt See_Comment [Aut omated message] The = Bili Direct) system which generated this result tra nsmitted reference range : <=0.3. The reference r christiano was not used to int erpret this result as edy l/abnormal. [facility] KlebergQvponbfRMEJHNFPW4312-11-08 06:27:00 Test Item Value Reference Range Interpretation Comments Bili Indirect Unable to See_Comment [Automated (test code = Bili Calculate message] T he system Indirect) which generated this result transmitted reference range : <=1.0. The reference range was not used to interpret this result as normal/abnormal . [facility] KlebergAbaftemNOOXMQUKO6520-58-88 06:27:00 Test Item Value Reference Range Interpretation Comments pH Justin (test code = pH Justin) 7.29 1 7.28-7.42 [facility] KlebergTgatkflJAGEVMWXA3048-80-02 06:27:00 Test Item Value Reference Range Interpretation Comments pCO2 Justin (test code = pCO2 Justin) 65 38-52 [facility] KlebergYjztkbyTWSRTSARP3270-94-66 06:27:00 Test Item Value Reference Range Interpretation Comments pO2 Justin (test code = pO2 Justin) 37 20-49 [facility] KlebergQhmjjgfQNWNJRURB5170-51-22 06:27:00 Test Item Value Reference Range Interpretation Comments HCO3 Justin (test code = HCO3 Justin) 31 22-26 [facility] KlebergRmfyyymTOQGWGGWY6328-75-55 06:27:00 Test Item Value Reference Range Interpretation Comments BE Jutsin (test code = BE Justin) 3 -2-2 [facility] KlebergRkncxvwOSBUPIDQL6977-84-73 06:27:00 Test Item Value Reference Range Interpretation Comments O2 Sat Justin (calc) (test code = O2 Sat 63.0 40.0-70.0 Justin (calc)) [facility] KlebergFwznuikWLZPLFXER9399-74-84 06:27:00 Test Item Value Reference Range Interpretation Comments Temp Justin (test code = Temp Justin) 37.0 [facility] KlebergYyevpdcNSPBLGFNH0535-78-12 06:27:00 Test Item Value Reference Range Interpretation Comments Lactic Acid Lvl (test code = Lactic 0.5 0.5-2.2 Acid Lvl) [facility] KlebergHokmgxeIYKMQHDUK0429-36-35 06:27:00 Test Item Value Reference Range Interpretation Comments TSH (test code = TSH) 0.403 0.360-3.740 [facility] McAllenYpopxepBRIOZRCCMI7720-23-80 06:27:00 Test Item Value Reference Range Interpretation Comments WBC X 10x3 (test code = WBC X 10x3) 5.9 3.7-10.4 [facility] McAllenWhhxelbPGHFYUZQOD6674-15-59 06:27:00 Test Item Value Reference Range Interpretation Comments RBC X 10x6 (test code = RBC X 10x6) 3.67 4.20-5.40 [facility] McAllenDvgbaaoOVLPTCFESA1766-29-94 06:27:00 Test Item Value Reference Range Interpretation Comments Hgb (test code = Hgb) 10.7 12.0-16.0 [facility] McAllenAsnplneIPGJGQRHTF6651-60-41 06:27:00 Test Item Value Reference Range Interpretation Comments Hct (test code = Hct) 33.5 36.0-48.0 [facility] McAllenLowmsezOLOKBJBVAL6494-84-07 06:27:00 Test Item Value Reference Range Interpretation Comments MCV (test code = MCV) 91.4 80.0-98.0 [facility] McAllenOmufuaxIWQBGCIYZQ5505-21-63 06:27:00 Test Item Value Reference Range Interpretation Comments MCH (test code = MCH) 29.3 pg 27.0-31.0 [facility] McAllenIneuplgNXQLFXGBUE4259-69-47 06:27:00 Test Item Value Reference Range Interpretation Comments MCHC (test code = MCHC) 32.0 32.0-36.0 [facility] McAllenGoprwnjUJNBAFJYOG8193-40-88 06:27:00 Test Item Value Reference Range Interpretation Comments RDW (test code = RDW) 13.7 11.5-14.5 [facility] McAllenFkrtvokCMIBTJRYWV5547-89-04 06:27:00 Test Item Value Reference Range Interpretation Comments Platelet (test code = Platelet) 139 133-450 [facility]AllenZcckihdSEBKGRITAD2942-99-58 06:27:00 Test Item Value Reference Range Interpretation Comments MPV (test code = MPV) 7.5 7.4-10.4 [facility] McAllenPiijwauQUXBXRHYOL6042-91-34 06:27:00 Test Item Value Reference Range Interpretation Comments ACT (TEG) Rapid (test code = ACT (TEG) 121 s 86-118 Rapid) [place] 391173-02-27 06:27:00 Test Item Value Reference Range Interpretation Comments Split Point Rapid (test code = Split 0.6 min Point Rapid) [place] 391173-02-27 06:27:00 Test Item Value Reference Range Interpretation Comments R-time Rapid (test code = R-time 0.8 min 0.4-0.7 Rapid) [place] [address]-02-27 06:27:00 Test Item Value Reference Range Interpretation Comments K-time Rapid (test code = K-time 0.8 min 0.6-2.3 Rapid) [place] [address]-02-27 06:27:00 Test Item Value Reference Range Interpretation Comments Angle Rapid (test code = Angle 79 degrees 64-80 Rapid) [place] [address]-02-27 06:27:00 Test Item Value Reference Range Interpretation Comments Max Amplitude Rapid (test code = Max 71 mm 52-71 Amplitude Rapid) [place] [address]-02-27 06:27:00 Test Item Value Reference Range Interpretation Comments G-value Rapid (test code = G-value 12.1 5.0-11.6 Rapid) [place] [address]-02-27 06:27:00 Test Item Value Reference Range Interpretation Comments Estimated % Lysis Rapid 0.0 See_Comment [Au tomated message] The (test code = Estimated syste m which generated % Lysis Rapid) this result t ransmitted reference range : <=7.5. The reference r christiano was not used to int erpret this result as normal/abnormal . [facility] McAllenDbscsuyOWQNYFMCNL5510-89-72:27:00 Test Item Value Reference Range Interpretation Comments RBC Morph (test code = Normal (11/27/22 12:27 RBC Morph) AM) [place] 391173-02-27 06:27:00 Test Item Value Reference Range Interpretation Comments Plt Morph (test code = Normal (11/27/22 12:27 Plt Morph) AM) [place] 391173-02-27 06:27:00 Test Item Value Reference Range Interpretation Comments Segs (test code = Segs) 60.1 45.0-75.0 [place] [address]-02-27 06:27:00 Test Item Value Reference Range Interpretation Comments Lymphocytes (test code = Lymphocytes) 23.9 20.0-40.0 [place] 391173-02-27 06:27:00 Test Item Value Reference Range Interpretation Comments Monocytes (test code = Monocytes) 9.6 2.0-12.0 [facility] McAllenRhwfkrhLMKYDPPTKF8961-66-68 06:27:00 Test Item Value Reference Range Interpretation Comments Eosinophils (test code = 5.2 See_Comment [A utomated message] The Eosinophils) system which ge nerated this result tra nsmitted reference range : <=4.0. The reference r christiano was not used to int erpret this result as normal/abnormal . [facility] McAllenFtbxqeuHGMXGIDRVO6471-73-27 06:27:00 Test Item Value Reference Range Interpretation Comments Basophils (test code = 1.2 See_Comment [Aut omated message] The Basophils) system which ge nerated this result tra nsmitted reference range : <=1.0. The reference r christiano was not used to int erpret this result as normal/abnormal . [facility] McAllenFkqxpxxXKMZOGUUAR6440-95-74 06:27:00 Test Item Value Reference Range Interpretation Comments Neutrophils # (test code = Neutrophils 3.5 1.5-8.1 #) [facility] McAllenHhdayqlEASLUWRDPL0917-00-59 06:27:00 Test Item Value Reference Range Interpretation Comments Lymphocytes # (test code = Lymphocytes 1.4 1.0-5.5 #) [facility] McAllenVniilefTPDQVATPOM2121-22-12 06:27:00 Test Item Value Reference Range Interpretation Comments Monocytes # (test code 0.6 See_Comment [Aut omated message] The = Monocytes #) system which generated this result tra nsmitted reference range : <=0.8. The reference r christiano was not used to int erpret this result as normal/abnormal . [place] 391173-02-27 06:27:00 Test Item Value Reference Range Interpretation Comments Eosinophils # (test code 0.3 See_Comment [A utomated message] The = Eosinophils #) system whic h generated this result tra nsmitted reference range : <=0.5. The reference r christiano was not used to int erpret this result as normal/abnormal . [place] 391173-02-27 06:27:00 Test Item Value Reference Range Interpretation Comments Basophils # (test code 0.1 See_Comment [Aut omated message] The = Basophils #) system which generated this result tra nsmitted reference range : <=0.2. The reference r christiano was not used to int erpret this result as normal/abnormal . [facility] McAllenMkqdfeiOQRZAZMDXJ2959-84-33 06:27:00 Test Item Value Reference Range Interpretation Comments ACT (TEG) Rapid (test code = ACT (TEG) 121 s 86-118 Rapid) [facility] McAllenBmpypqlSGRKAWSBGY2425-57-37 06:27:00 Test Item Value Reference Range Interpretation Comments Split Point Rapid (test code = Split 0.6 min Point Rapid) [facility] McAllenLyrwicpHKPHSOJYVL0546-78-78 06:27:00 Test Item Value Reference Range Interpretation Comments R-time Rapid (test code = R-time 0.8 min 0.4-0.7 Rapid) [facility] McAllenBiuwcexSIMSEZUZFJ6195-05-96 06:27:00 Test Item Value Reference Range Interpretation Comments K-time Rapid (test code = K-time 0.8 min 0.6-2.3 Rapid) [facility] McAllenCrpahugAHMDFZLHXU8874-60-01 06:27:00 Test Item Value Reference Range Interpretation Comments Angle Rapid (test code = Angle 79 degrees 64-80 Rapid) [facility] McAllenYjczmmrNPTWUNDMHE0934-09-87 06:27:00 Test Item Value Reference Range Interpretation Comments Max Amplitude Rapid (test code = Max 71 mm 52-71 Amplitude Rapid) [facility] McAllenMqvgvygTFGFANLAUV1787-71-51 06:27:00 Test Item Value Reference Range Interpretation Comments G-value Rapid (test code = G-value 12.1 5.0-11.6 Rapid) [facility] McAllenNyqmncgTMRFWGIGYO9461-36-89 06:27:00 Test Item Value Reference Range Interpretation Comments Estimated % Lysis Rapid 0.0 See_Comment [Au tomated message] The (test code = Estimated syste m which generated % Lysis Rapid) this result t ransmitted reference range : <=7.5. The reference r christiano was not used to int erpret this result as normal/abnormal . [facility] McAllenRpvrmlkYCVGANPKZL1079-13-06 06:27:00 Test Item Value Reference Range Interpretation Comments RBC Morph (test code = Normal (11/27/22 12:27 RBC Morph) AM) [facility] McAllenZyimvljQLJNODBYCS8146-58-01 06:27:00 Test Item Value Reference Range Interpretation Comments Plt Morph (test code = Normal (11/27/22 12:27 Plt Morph) AM) [facility]sm[facility]zgMSACNNEDMU3218-92-[facility] 06:27:00 Test Item Value Reference Range Interpretation Comments Basophils # (test code 0.1 See_Comment [Aut omated message] The = Basophils #) system which generated this result tra nsmitted reference range : <=0.2. The reference r christiano was not used to int erpret this result as normal/abnormal . [facility]bergAkxsmfqEQYSELIUY1120-19-94 13:17:00 Test Item Value Reference Range Interpretation Comments Glucose Lvl (test code = Glucose Lvl) 65 70-99 [facility] KlebergVikoaztDZVQTCTQB9682-12-22 13:17:00 Test Item Value Reference Range Interpretation Comments BUN (test code = BUN) 39 7-22 [facility] KlebergVieyyncIFEOSPBTF7918-69-95 13:17:00 Test Item Value Reference Range Interpretation Comments Creatinine Lvl (test code = Creatinine 2.03 0.50-1.40 Lvl) [facility] KlebergNszhirtOYVTXANAR2326-11-73 13:17:00 Test Item Value Reference Range Interpretation Comments Sodium Lvl (test code = Sodium Lvl) 139 135-145 [facility] KlebergQlxecnaUKKFMWKZG6967-32-35 13:17:00 Test Item Value Reference Range Interpretation Comments Potassium Lvl (test code = Potassium 4.7 3.5-5.1 Lvl) [facility] KlebergAsiiaouESXUOAERG6818-09-83 13:17:00 Test Item Value Reference Range Interpretation Comments Chloride Lvl (test code = Chloride Lvl) 107 95-109 [facility] KlebergNbsqrwaJGQXNFKZB3512-06-27 13:17:00 Test Item Value Reference Range Interpretation Comments CO2 (test code = CO2) 26 24-32 [facility] KlebergSzwvluhWXTIXTZCX4499-01-13 13:17:00 Test Item Value Reference Range Interpretation Comments Calcium Lvl (test code = Calcium Lvl) 8.1 8.5-10.5 [facility] KlebergVomehsmPSPJJLNPE8588-36-88 13:17:00 Test Item Value Reference Range Interpretation Comments AGAP (test code = AGAP) 10.7 10.0-20.0 [facility] KlebergBqtlfmeGJMNQBZPR2951-01-85 13:17:00 Test Item Value Reference Range Interpretation Comments eGFR (test code = eGFR) 24 [facility] KlebergEgigwxgVMALIYTCT8402-37-79 13:17:00 Test Item Value Reference Range Interpretation Comments Ca Ion WB (test code = Ca Ion WB) 1.06 1.05-1.25 [facility] KlebergBzqsvssTJLCVOIZB1992-21-06 13:17:00 Test Item Value Reference Range Interpretation Comments Ca Ion at pH 7.4 WB (test code = Ca Ion 1.03 1.05-1.25 at pH 7.4 WB) [facility] KlebergUridqfcOCKXJTWMF4410-63-52 13:17:00 Test Item Value Reference Range Interpretation Comments Magnesium Lvl (test code = Magnesium 2.7 1.8-2.4 Lvl) [facility] KlebergNtwuzvoPQCVUEYMU2496-44-23 13:17:00 Test Item Value Reference Range Interpretation Comments Phosphorus (test code = Phosphorus) 3.9 2.5-4.5 [facility] McAllenOkzhuolVOQEVJHJYZ2854-92-40 13:17:00 Test Item Value Reference Range Interpretation Comments Segs (test code = Segs) 54.4 45.0-75.0 [facility] McAllenZijcuarRKGFSMJHXD3935-50-26 13:17:00 Test Item Value Reference Range Interpretation Comments Lymphocytes (test code = Lymphocytes) 29.3 20.0-40.0 [facility] McAllenBhtvgmlDAXNTTEAAS1688-70-62 13:17:00 Test Item Value Reference Range Interpretation Comments Monocytes (test code = Monocytes) 10.5 2.0-12.0 [facility] McAllenUaacethUXBXGGVUCV3197-68-73 13:17:00 Test Item Value Reference Range Interpretation Comments Eosinophils (test code = 5.0 See_Comment [A utomated message] The Eosinophils) system which ge nerated this result tra nsmitted reference range : <=4.0. The reference r christiano was not used to int erpret this result as normal/abnormal . [facility] McAllenHjdxrinSBOKWPBYVP4484-41-76 13:17:00 Test Item Value Reference Range Interpretation Comments Basophils (test code = 0.8 See_Comment [Aut omated message] The Basophils) system which ge nerated this result tra nsmitted reference range : <=1.0. The reference r christiano was not used to int erpret this result as normal/abnormal . [facility] McAllenSbahtulIHRWOUPYTJ7203-21-58 13:17:00 Test Item Value Reference Range Interpretation Comments Neutrophils # (test code = Neutrophils 4.1 1.5-8.1 #) [place] 391173-02-22 13:17:00 Test Item Value Reference Range Interpretation Comments Lymphocytes # (test code = Lymphocytes 2.2 1.0-5.5 #) [place] 391173-02-22 13:17:00 Test Item Value Reference Range Interpretation Comments Monocytes # (test code 0.8 See_Comment [Aut omated message] The = Monocytes #) system which generated this result tra nsmitted reference range : <=0.8. The reference r christiano was not used to int erpret this result as normal/abnormal . [place] 391173-02-22 13:17:00 Test Item Value Reference Range Interpretation Comments Eosinophils # (test code 0.4 See_Comment [A utomated message] The = Eosinophils #) system whic h generated this result tra nsmitted reference range : <=0.5. The reference r chritsiano was not used to int erpret this result as normal/abnormal . [place] 391173-02-22 13:17:00 Test Item Value Reference Range Interpretation Comments Basophils # (test code 0.1 See_Comment [Aut omated message] The = Basophils #) system which generated this result tra nsmitted reference range : <=0.2. The reference r christiano was not used to int erpret this result as normal/abnormal . [place] 391173-02-22 13:17:00 Test Item Value Reference Range Interpretation Comments WBC (test code = WBC) 7.5 3.7-10.4 [place] 391173-02-22 13:17:00 Test Item Value Reference Range Interpretation Comments RBC (test code = RBC) 3.30 4.20-5.40 [place] [address]-02-22 13:17:00 Test Item Value Reference Range Interpretation Comments Hgb (test code = Hgb) 9.9 12.0-16.0 [place] [address]-02-22 13:17:00 Test Item Value Reference Range Interpretation Comments Hct (test code = Hct) 30.3 36.0-48.0 [place] [address]-02-22 13:17:00 Test Item Value Reference Range Interpretation Comments MCV (test code = MCV) 91.8 80.0-98.0 [place] [address]-02-22 13:17:00 Test Item Value Reference Range Interpretation Comments MCH (test code = MCH) 30.0 pg 27.0-31.0 [facility] McAllenVfyghywXZDOFDSVDV6582-40-80 13:17:00 Test Item Value Reference Range Interpretation Comments MCHC (test code = MCHC) 32.7 32.0-36.0 [facility] McAllenPrhneiyZHPKLKIZSA7015-57-26 13:17:00 Test Item Value Reference Range Interpretation Comments RDW (test code = RDW) 14.4 11.5-14.5 [facility] McAllenWxfcuxaMCYRSUSDPY8225-44-58 13:17:00 Test Item Value Reference Range Interpretation Comments Platelet (test code = Platelet) 136 133-450 [facility] McAllenJuzcftgJFPCLYTQDF1715-40-52 13:17:00 Test Item Value Reference Range Interpretation Comments MPV (test code = MPV) 8.7 7.4-10.4 [facility] KlebergYtpefuxGHNZYGMJD3510-85-50 13:17:00 Test Item Value Reference Range Interpretation Comments Glucose Lvl (test code = Glucose Lvl) 65 70-99 [facility] KlebergRqpdwakIUFXLRKEK5763-73-42 13:17:00 Test Item Value Reference Range Interpretation Comments BUN (test code = BUN) 39 7-22 [facility] KlebergThltbjfPORCTWHGO8320-57-68 13:17:00 Test Item Value Reference Range Interpretation Comments Creatinine Lvl (test code = Creatinine 2.03 0.50-1.40 Lvl) [facility] KlebergDbjftvgRWMFWANQD5854-45-85 13:17:00 Test Item Value Reference Range Interpretation Comments Sodium Lvl (test code = Sodium Lvl) 139 135-145 [facility] KlebergWqkgdmzFOLGAOLCK1720-64-36 13:17:00 Test Item Value Reference Range Interpretation Comments Potassium Lvl (test code = Potassium 4.7 3.5-5.1 Lvl) [facility] KlebergPsouvjtHQBJPNXEU2240-93-52 13:17:00 Test Item Value Reference Range Interpretation Comments Chloride Lvl (test code = Chloride Lvl) 107 95-109 [facility] KlebergDrhlcygFZBVRUWFD1017-16-05 13:17:00 Test Item Value Reference Range Interpretation Comments CO2 (test code = CO2) 26 24-32 [facility] KlebergHyllmgeUZBUXSUTN4262-70-30 13:17:00 Test Item Value Reference Range Interpretation Comments Calcium Lvl (test code = Calcium Lvl) 8.1 8.5-10.5 [place] 647753-02-22 13:17:00 Test Item Value Reference Range Interpretation Comments AGAP (test code = AGAP) 10.7 10.0-20.0 [place] 647753-02-22 13:17:00 Test Item Value Reference Range Interpretation Comments eGFR (test code = eGFR) 24 [facility] KlebergBmlzogiSTQLCMOUV9025-66-59 13:17:00 Test Item Value Reference Range Interpretation Comments Ca Ion WB (test code = Ca Ion WB) 1.06 1.05-1.25 [facility] KlebergQrbumyrACLARAEFF1106-14-80 13:17:00 Test Item Value Reference Range Interpretation Comments Ca Ion at pH 7.4 WB (test code = Ca Ion 1.03 1.05-1.25 at pH 7.4 WB) [facility] KlebergPfvnxaaORKFVIKSQ9912-13-29 13:17:00 Test Item Value Reference Range Interpretation Comments Magnesium Lvl (test code = Magnesium 2.7 1.8-2.4 Lvl) [facility] KlebergCmollgkXVHIYYYXN9386-47-57 13:17:00 Test Item Value Reference Range Interpretation Comments Phosphorus (test code = Phosphorus) 3.9 2.5-4.5 [facility]AllenAihvmxfNYQGYRTZAA0128-69-38 13:17:00 Test Item Value Reference Range Interpretation Comments Segs (test code = Segs) 54.4 45.0-75.0 [facility] McAllenRvdgwlyLALRBVFWAS3796-74-85 13:17:00 Test Item Value Reference Range Interpretation Comments Lymphocytes (test code = Lymphocytes) 29.3 20.0-40.0 [facility] McAllenUumzbjuLLPOQDFNEY5024-76-06 13:17:00 Test Item Value Reference Range Interpretation Comments Monocytes (test code = Monocytes) 10.5 2.0-12.0 [place] [address]-02-22 13:17:00 Test Item Value Reference Range Interpretation Comments Eosinophils (test code = 5.0 See_Comment [A utomated message] The Eosinophils) system which ge nerated this result tra nsmitted reference range : <=4.0. The reference r christiano was not used to int erpret this result as normal/abnormal . [place] 391173-02-22 13:17:00 Test Item Value Reference Range Interpretation Comments Basophils (test code = 0.8 See_Comment [Aut omated message] The Basophils) system which ge nerated this result tra nsmitted reference range : <=1.0. The reference r christiano was not used to int erpret this result as normal/abnormal . [place] 391173-02-22 13:17:00 Test Item Value Reference Range Interpretation Comments Neutrophils # (test code = Neutrophils 4.1 1.5-8.1 #) [place] 391173-02-22 13:17:00 Test Item Value Reference Range Interpretation Comments Lymphocytes # (test code = Lymphocytes 2.2 1.0-5.5 #) [place] [address]-02-22 13:17:00 Test Item Value Reference Range Interpretation Comments Monocytes # (test code 0.8 See_Comment [Aut omated message] The = Monocytes #) system which generated this result tra nsmitted reference range : <=0.8. The reference r christiano was not used to int erpret this result as normal/abnormal . [place] 391173-02-22 13:17:00 Test Item Value Reference Range Interpretation Comments Eosinophils # (test code 0.4 See_Comment [A utomated message] The = Eosinophils #) system whic h generated this result tra nsmitted reference range : <=0.5. The reference r christiano was not used to int erpret this result as normal/abnormal . [place] 391173-02-22 13:17:00 Test Item Value Reference Range Interpretation Comments Basophils # (test code 0.1 See_Comment [Aut omated message] The = Basophils #) system which generated this result tra nsmitted reference range : <=0.2. The reference r christiano was not used to int erpret this result as normal/abnormal . [facility] McAllenHnwwkbhNEIOCUCUOD2851-87-30 13:17:00 Test Item Value Reference Range Interpretation Comments WBC (test code = WBC) 7.5 3.7-10.4 [place] 391173-02-22 13:17:00 Test Item Value Reference Range Interpretation Comments RBC (test code = RBC) 3.30 4.20-5.40 [place] [address]-02-22 13:17:00 Test Item Value Reference Range Interpretation Comments Hgb (test code = Hgb) 9.9 12.0-16.0 [place] [address]-02-22 13:17:00 Test Item Value Reference Range Interpretation Comments Hct (test code = Hct) 30.3 36.0-48.0 [place] [address]-02-22 13:17:00 Test Item Value Reference Range Interpretation Comments MCV (test code = MCV) 91.8 80.0-98.0 [place] [address]-02-22 13:17:00 Test Item Value Reference Range Interpretation Comments MCH (test code = MCH) 30.0 pg 27.0-31.0 [place] [address]-02-22 13:17:00 Test Item Value Reference Range Interpretation Comments MCHC (test code = MCHC) 32.7 32.0-36.0 [place] [address]-02-22 13:17:00 Test Item Value Reference Range Interpretation Comments RDW (test code = RDW) 14.4 11.5-14.5 [address]02-22 13:17:00 Test Item Value Reference Range Interpretation Comments Platelet (test code = Platelet) 136 133-450 [place] [address]-02-22 13:17:00 Test Item Value Reference Range Interpretation Comments MPV (test code = MPV) 8.7 7.4-10.4 [place] 468413-02-22 13:17:00 Test Item Value Reference Range Interpretation Comments Glucose Lvl (test code = Glucose Lvl) 65 70-99 [place] 468413-02-22 13:17:00 Test Item Value Reference Range Interpretation Comments BUN (test code = BUN) 39 7-22 [place] [address]-02-22 13:17:00 Test Item Value Reference Range Interpretation Comments Creatinine Lvl (test code = Creatinine 2.03 0.50-1.40 Lvl) [place] [address]-02-22 13:17:00 Test Item Value Reference Range Interpretation Comments Sodium Lvl (test code = Sodium Lvl) 139 135-145 [place] 468413-02-22 13:17:00 Test Item Value Reference Range Interpretation Comments Potassium Lvl (test code = Potassium 4.7 3.5-5.1 Lvl) [place] 468413-02-22 13:17:00 Test Item Value Reference Range Interpretation Comments Chloride Lvl (test code = Chloride Lvl) 107 95-109 [place] 468413-02-22 13:17:00 Test Item Value Reference Range Interpretation Comments CO2 (test code = CO2) 26 24-32 [place] 468413-02-22 13:17:00 Test Item Value Reference Range Interpretation Comments Calcium Lvl (test code = Calcium Lvl) 8.1 8.5-10.5 [place] 468413-02-22 13:17:00 Test Item Value Reference Range Interpretation Comments AGAP (test code = AGAP) 10.7 10.0-20.0 [place] 468413-02-22 13:17:00 Test Item Value Reference Range Interpretation Comments eGFR (test code = eGFR) 24 [place] 468413-02-22 13:17:00 Test Item Value Reference Range Interpretation Comments Magnesium Lvl (test code = Magnesium 2.7 1.8-2.4 Lvl) [place] 468413-02-22 13:17:00 Test Item Value Reference Range Interpretation Comments Phosphorus (test code = Phosphorus) 3.9 2.5-4.5 [place] 647753-02-22 13:17:00 Test Item Value Reference Range Interpretation Comments Glucose Lvl (test code = Glucose Lvl) 65 70-99 [place] 647753-02-22 13:17:00 Test Item Value Reference Range Interpretation Comments BUN (test code = BUN) 39 7-22 [place] 647753-02-22 13:17:00 Test Item Value Reference Range Interpretation Comments Creatinine Lvl (test code = Creatinine 2.03 0.50-1.40 Lvl) [place] 647753-02-22 13:17:00 Test Item Value Reference Range Interpretation Comments Sodium Lvl (test code = Sodium Lvl) 139 135-145 [place] 647753-02-22 13:17:00 Test Item Value Reference Range Interpretation Comments Potassium Lvl (test code = Potassium 4.7 3.5-5.1 Lvl) [place] 647753-02-22 13:17:00 Test Item Value Reference Range Interpretation Comments Chloride Lvl (test code = Chloride Lvl) 107 95-109 [place] 647753-02-22 13:17:00 Test Item Value Reference Range Interpretation Comments CO2 (test code = CO2) 26 24-32 [place] 647753-02-22 13:17:00 Test Item Value Reference Range Interpretation Comments Calcium Lvl (test code = Calcium Lvl) 8.1 8.5-10.5 [facility]bergBvftpkrAKHTTKEKM9633-50-03 13:17:00 Test Item Value Reference Range Interpretation Comments AGAP (test code = AGAP) 10.7 10.0-20.0 [facility]bergVptlidxMAFQZHYXS1246-31-36 13:17:00 Test Item Value Reference Range Interpretation Comments eGFR (test code = eGFR) 24 [facility] KlebergMljeaxyPCHSHFUUU3437-15-05 13:17:00 Test Item Value Reference Range Interpretation Comments Ca Ion WB (test code = Ca Ion WB) 1.06 1.05-1.25 [facility] KlebergWoiimlhKSGKPXYHD4365-59-13 13:17:00 Test Item Value Reference Range Interpretation Comments Ca Ion at pH 7.4 WB (test code = Ca Ion 1.03 1.05-1.25 at pH 7.4 WB) [facility] KlebergEmsjkloTZPZMLIAC8749-26-60 13:17:00 Test Item Value Reference Range Interpretation Comments Magnesium Lvl (test code = Magnesium 2.7 1.8-2.4 Lvl) [facility]bergKwknvkcPUMXYAZRU9394-01-48 13:17:00 Test Item Value Reference Range Interpretation Comments Phosphorus (test code = Phosphorus) 3.9 2.5-4.5 [facility]AllenSxxgzhrZDBMYJDBLU4300-31-89 13:17:00 Test Item Value Reference Range Interpretation Comments Segs (test code = Segs) 54.4 45.0-75.0 [place] 391173-02-22 13:17:00 Test Item Value Reference Range Interpretation Comments Lymphocytes (test code = Lymphocytes) 29.3 20.0-40.0 [place] [address]-02-22 13:17:00 Test Item Value Reference Range Interpretation Comments Monocytes (test code = Monocytes) 10.5 2.0-12.0 [place] 391173-02-22 13:17:00 Test Item Value Reference Range Interpretation Comments Eosinophils (test code = 5.0 See_Comment [A utomated message] The Eosinophils) system which ge nerated this result tra nsmitted reference range : <=4.0. The reference r christiano was not used to int erpret this result as normal/abnormal . [place] 391173-02-22 13:17:00 Test Item Value Reference Range Interpretation Comments Basophils (test code = 0.8 See_Comment [Aut omated message] The Basophils) system which ge nerated this result tra nsmitted reference range : <=1.0. The reference r christiano was not used to int erpret this result as normal/abnormal . [place] 391173-02-22 13:17:00 Test Item Value Reference Range Interpretation Comments Neutrophils # (test code = Neutrophils 4.1 1.5-8.1 #) [facility]xd[facility]UGNCC1239-34-85 13:17:00 Test Item Value Reference Range Interpretation Comments Lymphocytes # (test code = Lymphocytes 2.2 1.0-5.5 #) [place] 391173-02-22 13:17:00 Test Item Value Reference Range Interpretation Comments Monocytes # (test code 0.8 See_Comment [Aut omated message] The = Monocytes #) system which generated this result tra nsmitted reference range : <=0.8. The reference r christiano was not used to int erpret this result as normal/abnormal . [place] 391173-02-22 13:17:00 Test Item Value Reference Range Interpretation Comments Eosinophils # (test code 0.4 See_Comment [A utomated message] The = Eosinophils #) system whic h generated this result tra nsmitted reference range : <=0.5. The reference r christiano was not used to int erpret this result as normal/abnormal . [facility]AllenYwaafbnINXASHOBID0787-83-76 13:17:00 Test Item Value Reference Range Interpretation Comments Basophils # (test code 0.1 See_Comment [Aut omated message] The = Basophils #) system which generated this result tra nsmitted reference range : <=0.2. The reference r christiano was not used to int erpret this result as normal/abnormal . [place] 391173-02-22 13:17:00 Test Item Value Reference Range Interpretation Comments WBC (test code = WBC) 7.5 3.7-10.4 [place] 391173-02-22 13:17:00 Test Item Value Reference Range Interpretation Comments RBC (test code = RBC) 3.30 4.20-5.40 [place] 391173-02-22 13:17:00 Test Item Value Reference Range Interpretation Comments Hgb (test code = Hgb) 9.9 12.0-16.0 [place] 391173-02-22 13:17:00 Test Item Value Reference Range Interpretation Comments Hct (test code = Hct) 30.3 36.0-48.0 [place] 391173-02-22 13:17:00 Test Item Value Reference Range Interpretation Comments MCV (test code = MCV) 91.8 80.0-98.0 [place] 391173-02-22 13:17:00 Test Item Value Reference Range Interpretation Comments MCH (test code = MCH) 30.0 pg 27.0-31.0 [place] 391173-02-22 13:17:00 Test Item Value Reference Range Interpretation Comments MCHC (test code = MCHC) 32.7 32.0-36.0 [facility]AllenGmfdbwiFTQGSMCRHC1938-53-57 13:17:00 Test Item Value Reference Range Interpretation Comments RDW (test code = RDW) 14.4 11.5-14.5 [facility] McAllenPkfzvxhRJGJHQSUXE1955-69-79 13:17:00 Test Item Value Reference Range Interpretation Comments Platelet (test code = Platelet) 136 133-450 [facility]AllenWeevajoXYYRHOJYUD0874-37-24 13:17:00 Test Item Value Reference Range Interpretation Comments MPV (test code = MPV) 8.7 7.4-10.4 [place] 391173-02-22 13:17:00 Test Item Value Reference Range Interpretation Comments Segs (test code = Segs) 54.4 45.0-75.0 [place] 391173-02-22 13:17:00 Test Item Value Reference Range Interpretation Comments Lymphocytes (test code = Lymphocytes) 29.3 20.0-40.0 [place] 391173-02-22 13:17:00 Test Item Value Reference Range Interpretation Comments Monocytes (test code = Monocytes) 10.5 2.0-12.0 [place] 391173-02-22 13:17:00 Test Item Value Reference Range Interpretation Comments Eosinophils (test code = 5.0 See_Comment [A utomated message] The Eosinophils) system which ge nerated this result tra nsmitted reference range : <=4.0. The reference r christiano was not used to int erpret this result as normal/abnormal . [place] 391173-02-22 13:17:00 Test Item Value Reference Range Interpretation Comments Basophils (test code = 0.8 See_Comment [Aut omated message] The Basophils) system which ge nerated this result tra nsmitted reference range : <=1.0. The reference r christiano was not used to int erpret this result as normal/abnormal . [place] 391173-02-22 13:17:00 Test Item Value Reference Range Interpretation Comments Neutrophils # (test code = Neutrophils 4.1 1.5-8.1 #) [place] 391173-02-22 13:17:00 Test Item Value Reference Range Interpretation Comments Lymphocytes # (test code = Lymphocytes 2.2 1.0-5.5 #) [place] 391173-02-22 13:17:00 Test Item Value Reference Range Interpretation Comments Monocytes # (test code 0.8 See_Comment [Aut omated message] The = Monocytes #) system which generated this result tra nsmitted reference range : <=0.8. The reference r christiano was not used to int erpret this result as normal/abnormal . [place] 391173-02-22 13:17:00 Test Item Value Reference Range Interpretation Comments Eosinophils # (test code 0.4 See_Comment [A utomated message] The = Eosinophils #) system whic h generated this result tra nsmitted reference range : <=0.5. The reference r christiano was not used to int erpret this result as normal/abnormal . [place] 391173-02-22 13:17:00 Test Item Value Reference Range Interpretation Comments Basophils # (test code 0.1 See_Comment [Aut omated message] The = Basophils #) system which generated this result tra nsmitted reference range : <=0.2. The reference r christiano was not used to int erpret this result as normal/abnormal . [place] 391173-02-22 13:17:00 Test Item Value Reference Range Interpretation Comments WBC (test code = WBC) 7.5 3.7-10.4 [place] 391173-02-22 13:17:00 Test Item Value Reference Range Interpretation Comments RBC (test code = RBC) 3.30 4.20-5.40 [facility]AllenDkdzwxgZLYTHRSRTB8804-21-90 13:17:00 Test Item Value Reference Range Interpretation Comments Hgb (test code = Hgb) 9.9 12.0-16.0 [place] 391173-02-22 13:17:00 Test Item Value Reference Range Interpretation Comments Hct (test code = Hct) 30.3 36.0-48.0 [facility] McAllenAatbufkPFFRBNXVRL7825-90-20 13:17:00 Test Item Value Reference Range Interpretation Comments MCV (test code = MCV) 91.8 80.0-98.0 [facility] McAllenOkfzaghEPQQXYJNMO0808-64-25 13:17:00 Test Item Value Reference Range Interpretation Comments MCH (test code = MCH) 30.0 pg 27.0-31.0 [facility] McAllenIjswntqPKQZSFFQXP6602-58-58 13:17:00 Test Item Value Reference Range Interpretation Comments MCHC (test code = MCHC) 32.7 32.0-36.0 [facility] McAllenZosrgnvNTYEQACVVE1238-12-66 13:17:00 Test Item Value Reference Range Interpretation Comments RDW (test code = RDW) 14.4 11.5-14.5 [facility] McAllenAcmwsxxHLHAHHVQFN8671-54-11 13:17:00 Test Item Value Reference Range Interpretation Comments Platelet (test code = Platelet) 136 133-450 [facility] McAllenMmgngjnKRRLOLAQAZ8445-38-57 13:17:00 Test Item Value Reference Range Interpretation Comments MPV (test code = MPV) 8.7 7.4-10.4 [facility] QZOEBFY5266-[facility]-34 13:17:00 Test Item Value Reference Range Interpretation Comments Ca Ion WB (test code = Ca Ion WB) 1.06 1.05-1.25 [facility]kinRO[facility] HRKPUWE6400-07-27 13:17:00 Test Item Value Reference Range Interpretation Comments Ca Ion at pH 7.4 WB (test code = Ca Ion 1.03 1.05-1.25 at pH 7.4 WB) [facility]2023-02-22 13:17:00 Test Item Value Reference Range Interpretation Comments Glucose Lvl (test code = Glucose Lvl) 65 70-99 [facility]2023-02-22 13:17:00 Test Item Value Reference Range Interpretation Comments BUN (test code = BUN) 39 7-22 [place] 468413-02-22 13:17:00 Test Item Value Reference Range Interpretation Comments Creatinine Lvl (test code = Creatinine 2.03 0.50-1.40 Lvl) [facility]2023-02-22 13:17:00 Test Item Value Reference Range Interpretation Comments Sodium Lvl (test code = Sodium Lvl) 139 135-145 [place] 468413-02-22 13:17:00 Test Item Value Reference Range Interpretation Comments Potassium Lvl (test code = Potassium 4.7 3.5-5.1 Lvl) [facility]2023-02-22 13:17:00 Test Item Value Reference Range Interpretation Comments Chloride Lvl (test code = Chloride Lvl) 107 95-109 [facility]2023-02-22 13:17:00 Test Item Value Reference Range Interpretation Comments CO2 (test code = CO2) 26 24-32 [facility]2023-02-22 13:17:00 Test Item Value Reference Range Interpretation Comments Calcium Lvl (test code = Calcium Lvl) 8.1 8.5-10.5 [facility]2023-02-22 13:17:00 Test Item Value Reference Range Interpretation Comments AGAP (test code = AGAP) 10.7 10.0-20.0 [facility]2023-02-22 13:17:00 Test Item Value Reference Range Interpretation Comments eGFR (test code = eGFR) 24 [facility]2023-02-22 13:17:00 Test Item Value Reference Range Interpretation Comments Magnesium Lvl (test code = Magnesium 2.7 1.8-2.4 Lvl) [facility]2023-02-22 13:17:00 Test Item Value Reference Range Interpretation Comments Phosphorus (test code = Phosphorus) 3.9 2.5-4.5 [facility]YwplqxtZUDZCCOKY5643-92-95 13:17:00 Test Item Value Reference Range Interpretation Comments Glucose Lvl (test code = Glucose Lvl) 65 70-99 [place] 647753-02-22 13:17:00 Test Item Value Reference Range Interpretation Comments BUN (test code = BUN) 39 7-22 [place] 647753-02-22 13:17:00 Test Item Value Reference Range Interpretation Comments Creatinine Lvl (test code = Creatinine 2.03 0.50-1.40 Lvl) [facility]bergQfozpjnSDBQATJGP7197-03-63 13:17:00 Test Item Value Reference Range Interpretation Comments Sodium Lvl (test code = Sodium Lvl) 139 135-145 [place] 647753-02-22 13:17:00 Test Item Value Reference Range Interpretation Comments Potassium Lvl (test code = Potassium 4.7 3.5-5.1 Lvl) [facility] KlebergAnfbpvoISRZDIWWF8686-75-20 13:17:00 Test Item Value Reference Range Interpretation Comments Chloride Lvl (test code = Chloride Lvl) 107 95-109 [place] 647753-02-22 13:17:00 Test Item Value Reference Range Interpretation Comments CO2 (test code = CO2) 26 24-32 [place] 647753-02-22 13:17:00 Test Item Value Reference Range Interpretation Comments Calcium Lvl (test code = Calcium Lvl) 8.1 8.5-10.5 [facility] KlebergOpgeoqmMATHSNYZX4877-95-34 13:17:00 Test Item Value Reference Range Interpretation Comments AGAP (test code = AGAP) 10.7 10.0-20.0 [facility] KlebergKmwhabnJFCRYGGBE2784-19-92 13:17:00 Test Item Value Reference Range Interpretation Comments eGFR (test code = eGFR) 24 [facility] KlebergQshqrxoRDNLHMGYY8836-80-55 13:17:00 Test Item Value Reference Range Interpretation Comments Ca Ion WB (test code = Ca Ion WB) 1.06 1.05-1.25 [facility] KlebergTkioyvkRBOIKLIRW2905-37-00 13:17:00 Test Item Value Reference Range Interpretation Comments Ca Ion at pH 7.4 WB (test code = Ca Ion 1.03 1.05-1.25 at pH 7.4 WB) [facility] KlebergDaybufwTDFDRVVPZ0141-96-69 13:17:00 Test Item Value Reference Range Interpretation Comments Magnesium Lvl (test code = Magnesium 2.7 1.8-2.4 Lvl) [facility] KlebergEnktcgtYJBPLFIIW8414-86-59 13:17:00 Test Item Value Reference Range Interpretation Comments Phosphorus (test code = Phosphorus) 3.9 2.5-4.5 [facility]AllenAlpifaoNLONUIWFYE0284-68-87 13:17:00 Test Item Value Reference Range Interpretation Comments Segs (test code = Segs) 54.4 45.0-75.0 [place] 391173-02-22 13:17:00 Test Item Value Reference Range Interpretation Comments Lymphocytes (test code = Lymphocytes) 29.3 20.0-40.0 [place] 391173-02-22 13:17:00 Test Item Value Reference Range Interpretation Comments Monocytes (test code = Monocytes) 10.5 2.0-12.0 [place] 391173-02-22 13:17:00 Test Item Value Reference Range Interpretation Comments Eosinophils (test code = 5.0 See_Comment [A utomated message] The Eosinophils) system which ge nerated this result tra nsmitted reference range : <=4.0. The reference r christiano was not used to int erpret this result as normal/abnormal . [place] 391173-02-22 13:17:00 Test Item Value Reference Range Interpretation Comments Basophils (test code = 0.8 See_Comment [Aut omated message] The Basophils) system which ge nerated this result tra nsmitted reference range : <=1.0. The reference r christiano was not used to int erpret this result as normal/abnormal . [facility]AllenYcakgxgGMVYKYOJPD6438-16-52 13:17:00 Test Item Value Reference Range Interpretation Comments Neutrophils # (test code = Neutrophils 4.1 1.5-8.1 #) [place] 391173-02-22 13:17:00 Test Item Value Reference Range Interpretation Comments Lymphocytes # (test code = Lymphocytes 2.2 1.0-5.5 #) [place] 391173-02-22 13:17:00 Test Item Value Reference Range Interpretation Comments Monocytes # (test code 0.8 See_Comment [Aut omated message] The = Monocytes #) system which generated this result tra nsmitted reference range : <=0.8. The reference r christiano was not used to int erpret this result as normal/abnormal . [place] 391173-02-22 13:17:00 Test Item Value Reference Range Interpretation Comments Eosinophils # (test code 0.4 See_Comment [A utomated message] The = Eosinophils #) system whic h generated this result tra nsmitted reference range : <=0.5. The reference r christiano was not used to int erpret this result as normal/abnormal . [facility] McAllenTmocbinPRBJRSEXIF6632-82-15 13:17:00 Test Item Value Reference Range Interpretation Comments Basophils # (test code 0.1 See_Comment [Aut omated message] The = Basophils #) system which generated this result tra nsmitted reference range : <=0.2. The reference r christiano was not used to int erpret this result as normal/abnormal . [place] 391173-02-22 13:17:00 Test Item Value Reference Range Interpretation Comments WBC (test code = WBC) 7.5 3.7-10.4 [place] 391173-02-22 13:17:00 Test Item Value Reference Range Interpretation Comments RBC (test code = RBC) 3.30 4.20-5.40 [place] 391173-02-22 13:17:00 Test Item Value Reference Range Interpretation Comments Hgb (test code = Hgb) 9.9 12.0-16.0 [place] 391173-02-22 13:17:00 Test Item Value Reference Range Interpretation Comments Hct (test code = Hct) 30.3 36.0-48.0 [place] 391173-02-22 13:17:00 Test Item Value Reference Range Interpretation Comments MCV (test code = MCV) 91.8 80.0-98.0 [place] 391173-02-22 13:17:00 Test Item Value Reference Range Interpretation Comments MCH (test code = MCH) 30.0 pg 27.0-31.0 [place] 391173-02-22 13:17:00 Test Item Value Reference Range Interpretation Comments MCHC (test code = MCHC) 32.7 32.0-36.0 [place] [address]-02-22 13:17:00 Test Item Value Reference Range Interpretation Comments RDW (test code = RDW) 14.4 11.5-14.5 [place] 391173-02-22 13:17:00 Test Item Value Reference Range Interpretation Comments Platelet (test code = Platelet) 136 133-450 [place] 391173-02-22 13:17:00 Test Item Value Reference Range Interpretation Comments MPV (test code = MPV) 8.7 7.4-10.4 [place] 391173-02-22 13:17:00 Test Item Value Reference Range Interpretation Comments Segs (test code = Segs) 54.4 45.0-75.0 [place] 391173-02-22 13:17:00 Test Item Value Reference Range Interpretation Comments Lymphocytes (test code = Lymphocytes) 29.3 20.0-40.0 [place] 391173-02-22 13:17:00 Test Item Value Reference Range Interpretation Comments Monocytes (test code = Monocytes) 10.5 2.0-12.0 [place] 391173-02-22 13:17:00 Test Item Value Reference Range Interpretation Comments Eosinophils (test code = 5.0 See_Comment [A utomated message] The Eosinophils) system which ge nerated this result tra nsmitted reference range : <=4.0. The reference r christiano was not used to int erpret this result as normal/abnormal . [place] 391173-02-22 13:17:00 Test Item Value Reference Range Interpretation Comments Basophils (test code = 0.8 See_Comment [Aut omated message] The Basophils) system which ge nerated this result tra nsmitted reference range : <=1.0. The reference r christiano was not used to int erpret this result as normal/abnormal . [place] 391173-02-22 13:17:00 Test Item Value Reference Range Interpretation Comments Neutrophils # (test code = Neutrophils 4.1 1.5-8.1 #) [place] 391173-02-22 13:17:00 Test Item Value Reference Range Interpretation Comments Lymphocytes # (test code = Lymphocytes 2.2 1.0-5.5 #) [place] 284[address]-02-22 13:17:00 Test Item Value Reference Range Interpretation Comments Monocytes # (test code 0.8 See_Comment [Aut omated message] The = Monocytes #) system which generated this result tra nsmitted reference range : <=0.8. The reference r christiano was not used to int erpret this result as normal/abnormal . [place] 391173-02-22 13:17:00 Test Item Value Reference Range Interpretation Comments Eosinophils # (test code 0.4 See_Comment [A utomated message] The = Eosinophils #) system whic h generated this result tra nsmitted reference range : <=0.5. The reference r christiano was not used to int erpret this result as normal/abnormal . [facility]AllenSyhsjrjDENPKTQUVH3735-87-86 13:17:00 Test Item Value Reference Range Interpretation Comments Basophils # (test code 0.1 See_Comment [Aut omated message] The = Basophils #) system which generated this result tra nsmitted reference range : <=0.2. The reference r christiano was not used to int erpret this result as normal/abnormal . [facility] McAllenYuqnqsiXLPNAWUVLV1365-12-09 13:17:00 Test Item Value Reference Range Interpretation Comments WBC (test code = WBC) 7.5 3.7-10.4 [place] 391173-02-22 13:17:00 Test Item Value Reference Range Interpretation Comments RBC (test code = RBC) 3.30 4.20-5.40 [facility]AllenQfjucxxNVQWTAJRAL8059-29-08 13:17:00 Test Item Value Reference Range Interpretation Comments Hgb (test code = Hgb) 9.9 12.0-16.0 [place] 391173-02-22 13:17:00 Test Item Value Reference Range Interpretation Comments Hct (test code = Hct) 30.3 36.0-48.0 [facility]AllenPzwulmzDVBBAWEPXK2808-85-00 13:17:00 Test Item Value Reference Range Interpretation Comments MCV (test code = MCV) 91.8 80.0-98.0 [facility] McAllenGxctvloCWBPQSITIV9533-80-97 13:17:00 Test Item Value Reference Range Interpretation Comments MCH (test code = MCH) 30.0 pg 27.0-31.0 [place] 391173-02-22 13:17:00 Test Item Value Reference Range Interpretation Comments MCHC (test code = MCHC) 32.7 32.0-36.0 [place] 391173-02-22 13:17:00 Test Item Value Reference Range Interpretation Comments RDW (test code = RDW) 14.4 11.5-14.5 [place] 391173-02-22 13:17:00 Test Item Value Reference Range Interpretation Comments Platelet (test code = Platelet) 136 133-450 [facility] McAllenJawteidPFOGEEKBYH1001-21-00 13:17:00 Test Item Value Reference Range Interpretation Comments MPV (test code = MPV) 8.7 7.4-10.4 [place] 976883-02-22 13:17:00 Test Item Value Reference Range Interpretation Comments Ca Ion WB (test code = Ca Ion WB) 1.06 1.05-1.25 [facility]2023-02-22 13:17:00 Test Item Value Reference Range Interpretation Comments Ca Ion at pH 7.4 WB (test code = Ca Ion 1.03 1.05-1.25 at pH 7.4 WB) [facility]2023-02-22 13:17:00 Test Item Value Reference Range Interpretation Comments Glucose Lvl (test code = Glucose Lvl) 65 70-99 [facility]2023-02-22 13:17:00 Test Item Value Reference Range Interpretation Comments BUN (test code = BUN) 39 7-22 [place] 468413-02-22 13:17:00 Test Item Value Reference Range Interpretation Comments Creatinine Lvl (test code = Creatinine 2.03 0.50-1.40 Lvl) [facility]2023-02-22 13:17:00 Test Item Value Reference Range Interpretation Comments Sodium Lvl (test code = Sodium Lvl) 139 135-145 [facility]2023-02-22 13:17:00 Test Item Value Reference Range Interpretation Comments Potassium Lvl (test code = Potassium 4.7 3.5-5.1 Lvl) [facility]2023-02-22 13:17:00 Test Item Value Reference Range Interpretation Comments Chloride Lvl (test code = Chloride Lvl) 107 95-109 [place] 468413-02-22 13:17:00 Test Item Value Reference Range Interpretation Comments CO2 (test code = CO2) 26 24-32 [place] 468413-02-22 13:17:00 Test Item Value Reference Range Interpretation Comments Calcium Lvl (test code = Calcium Lvl) 8.1 8.5-10.5 [place] 468413-02-22 13:17:00 Test Item Value Reference Range Interpretation Comments AGAP (test code = AGAP) 10.7 10.0-20.0 [place] 468413-02-22 13:17:00 Test Item Value Reference Range Interpretation Comments eGFR (test code = eGFR) 24 [facility]2023-02-22 13:17:00 Test Item Value Reference Range Interpretation Comments Magnesium Lvl (test code = Magnesium 2.7 1.8-2.4 Lvl) [facility]2023-02-22 13:17:00 Test Item Value Reference Range Interpretation Comments Phosphorus (test code = Phosphorus) 3.9 2.5-4.5 [place] 647753-02-22 13:17:00 Test Item Value Reference Range Interpretation Comments Glucose Lvl (test code = Glucose Lvl) 65 70-99 [place] 1999[address]-02-22 13:17:00 Test Item Value Reference Range Interpretation Comments BUN (test code = BUN) 39 7-22 [facility]bergSlnyiuuOGFLPOQCQ6509-55-45 13:17:00 Test Item Value Reference Range Interpretation Comments Creatinine Lvl (test code = Creatinine 2.03 0.50-1.40 Lvl) [facility] KlebergKorceztYJTZJXKNM4100-69-57 13:17:00 Test Item Value Reference Range Interpretation Comments Sodium Lvl (test code = Sodium Lvl) 139 135-145 [facility] KlebergVlazrkbHDSQVGWQU4487-02-21 13:17:00 Test Item Value Reference Range Interpretation Comments Potassium Lvl (test code = Potassium 4.7 3.5-5.1 Lvl) [facility] KlebergTciqdclRHIMQADJT0206-07-89 13:17:00 Test Item Value Reference Range Interpretation Comments Chloride Lvl (test code = Chloride Lvl) 107 95-109 [facility] KlebergNmewtrlXJRJNRVOI2049-40-87 13:17:00 Test Item Value Reference Range Interpretation Comments CO2 (test code = CO2) 26 24-32 [place] 647753-02-22 13:17:00 Test Item Value Reference Range Interpretation Comments Calcium Lvl (test code = Calcium Lvl) 8.1 8.5-10.5 [place] 647753-02-22 13:17:00 Test Item Value Reference Range Interpretation Comments AGAP (test code = AGAP) 10.7 10.0-20.0 [facility] KlebergZwajlpmJQKCEHCNU6113-15-53 13:17:00 Test Item Value Reference Range Interpretation Comments eGFR (test code = eGFR) 24 [facility] KlebergTgpstaqKKMWVFTUX3552-74-54 13:17:00 Test Item Value Reference Range Interpretation Comments Ca Ion WB (test code = Ca Ion WB) 1.06 1.05-1.25 [facility] KlebergEvpwlqtGEZDREYPE1522-25-35 13:17:00 Test Item Value Reference Range Interpretation Comments Ca Ion at pH 7.4 WB (test code = Ca Ion 1.03 1.05-1.25 at pH 7.4 WB) [facility] KlebergPxbhlwgJKKNPJXUP6773-02-10 13:17:00 Test Item Value Reference Range Interpretation Comments Magnesium Lvl (test code = Magnesium 2.7 1.8-2.4 Lvl) [facility] KlebergYxoftcpFSEKWUGZG6758-77-36 13:17:00 Test Item Value Reference Range Interpretation Comments Phosphorus (test code = Phosphorus) 3.9 2.5-4.5 [facility]AllenHacnaaiXGOAURZMJP2342-29-07 13:17:00 Test Item Value Reference Range Interpretation Comments Segs (test code = Segs) 54.4 45.0-75.0 [facility] McAllenXirazqtQARWMWEZLA9440-85-81 13:17:00 Test Item Value Reference Range Interpretation Comments Lymphocytes (test code = Lymphocytes) 29.3 20.0-40.0 [facility] McAllenNanlvumJBBLBBPOAI3403-06-64 13:17:00 Test Item Value Reference Range Interpretation Comments Monocytes (test code = Monocytes) 10.5 2.0-12.0 [facility] McAllenAzwpsafAPDPOIKUOE0328-31-61 13:17:00 Test Item Value Reference Range Interpretation Comments Eosinophils (test code = 5.0 See_Comment [A utomated message] The Eosinophils) system which ge nerated this result tra nsmitted reference range : <=4.0. The reference r christiano was not used to int erpret this result as normal/abnormal . [facility]PddsjiyUVCXFENGAF1220-58-44 13:17:00 Test Item Value Reference Range Interpretation Comments Basophils (test code = 0.8 See_Comment [Aut omated message] The Basophils) system which ge nerated this result tra nsmitted reference range : <=1.0. The reference r christiano was not used to int erpret this result as normal/abnormal . [facility]AllenMceqeuxMGJMQWPDEY8913-59-01 13:17:00 Test Item Value Reference Range Interpretation Comments Neutrophils # (test code = Neutrophils 4.1 1.5-8.1 #) [place] 391173-02-22 13:17:00 Test Item Value Reference Range Interpretation Comments Lymphocytes # (test code = Lymphocytes 2.2 1.0-5.5 #) [place] 391173-02-22 13:17:00 Test Item Value Reference Range Interpretation Comments Monocytes # (test code 0.8 See_Comment [Aut omated message] The = Monocytes #) system which generated this result tra nsmitted reference range : <=0.8. The reference r christiano was not used to int erpret this result as normal/abnormal . [place] 391173-02-22 13:17:00 Test Item Value Reference Range Interpretation Comments Eosinophils # (test code 0.4 See_Comment [A utomated message] The = Eosinophils #) system whic h generated this result tra nsmitted reference range : <=0.5. The reference r christiano was not used to int erpret this result as normal/abnormal . [place] 391173-02-22 13:17:00 Test Item Value Reference Range Interpretation Comments Basophils # (test code 0.1 See_Comment [Aut omated message] The = Basophils #) system which generated this result tra nsmitted reference range : <=0.2. The reference r christiano was not used to int erpret this result as normal/abnormal . [place] 391173-02-22 13:17:00 Test Item Value Reference Range Interpretation Comments WBC (test code = WBC) 7.5 3.7-10.4 [place] 391173-02-22 13:17:00 Test Item Value Reference Range Interpretation Comments RBC (test code = RBC) 3.30 4.20-5.40 [place] [address]-02-22 13:17:00 Test Item Value Reference Range Interpretation Comments Hgb (test code = Hgb) 9.9 12.0-16.0 [place] [address]-02-22 13:17:00 Test Item Value Reference Range Interpretation Comments Hct (test code = Hct) 30.3 36.0-48.0 [place] [address]-02-22 13:17:00 Test Item Value Reference Range Interpretation Comments MCV (test code = MCV) 91.8 80.0-98.0 [place] [address]-02-22 13:17:00 Test Item Value Reference Range Interpretation Comments MCH (test code = MCH) 30.0 pg 27.0-31.0 [facility]AllenRjdivmwFLYJJBUQGX7549-23-82 13:17:00 Test Item Value Reference Range Interpretation Comments MCHC (test code = MCHC) 32.7 32.0-36.0 [place] 391173-02-22 13:17:00 Test Item Value Reference Range Interpretation Comments RDW (test code = RDW) 14.4 11.5-14.5 [facility]AllenZnhirppNBPUYZTAKE6393-00-01 13:17:00 Test Item Value Reference Range Interpretation Comments Platelet (test code = Platelet) 136 133-450 [facility]AllenQwnzwcpNJJLKXNESR0757-34-40 13:17:00 Test Item Value Reference Range Interpretation Comments MPV (test code = MPV) 8.7 7.4-10.4 [place] 391173-02-22 13:17:00 Test Item Value Reference Range Interpretation Comments Segs (test code = Segs) 54.4 45.0-75.0 [facility]AllenIcilvzmLRRGMVJXHL1253-59-17 13:17:00 Test Item Value Reference Range Interpretation Comments Lymphocytes (test code = Lymphocytes) 29.3 20.0-40.0 [facility] McAllenBeuomikAMRXVKKVSF1003-87-34 13:17:00 Test Item Value Reference Range Interpretation Comments Monocytes (test code = Monocytes) 10.5 2.0-12.0 [facility] McAllenExnodqxVBWEMACCMG9486-61-42 13:17:00 Test Item Value Reference Range Interpretation Comments Eosinophils (test code = 5.0 See_Comment [A utomated message] The Eosinophils) system which ge nerated this result tra nsmitted reference range : <=4.0. The reference r christiano was not used to int erpret this result as normal/abnormal . [facility]AllenBwazhrfJUMHTUAOQV1729-02-86 13:17:00 Test Item Value Reference Range Interpretation Comments Basophils (test code = 0.8 See_Comment [Aut omated message] The Basophils) system which ge nerated this result tra nsmitted reference range : <=1.0. The reference r christiano was not used to int erpret this result as normal/abnormal . [facility]AllenWmrgaoyBUWRMGUXUW1920-73-57 13:17:00 Test Item Value Reference Range Interpretation Comments Neutrophils # (test code = Neutrophils 4.1 1.5-8.1 #) [place] [address]-02-22 13:17:00 Test Item Value Reference Range Interpretation Comments Lymphocytes # (test code = Lymphocytes 2.2 1.0-5.5 #) [place] [address]-02-22 13:17:00 Test Item Value Reference Range Interpretation Comments Monocytes # (test code 0.8 See_Comment [Aut omated message] The = Monocytes #) system which generated this result tra nsmitted reference range : <=0.8. The reference r christiano was not used to int erpret this result as normal/abnormal . [place] [address]-02-22 13:17:00 Test Item Value Reference Range Interpretation Comments Eosinophils # (test code 0.4 See_Comment [A utomated message] The = Eosinophils #) system whic h generated this result tra nsmitted reference range : <=0.5. The reference r christiano was not used to int erpret this result as normal/abnormal . [place] [address]-02-22 13:17:00 Test Item Value Reference Range Interpretation Comments Basophils # (test code 0.1 See_Comment [Aut omated message] The = Basophils #) system which generated this result tra nsmitted reference range : <=0.2. The reference r christiano was not used to int erpret this result as normal/abnormal . [place] 391173-02-22 13:17:00 Test Item Value Reference Range Interpretation Comments WBC (test code = WBC) 7.5 3.7-10.4 [place] [address]-02-22 13:17:00 Test Item Value Reference Range Interpretation Comments RBC (test code = RBC) 3.30 4.20-5.40 [place] [address]-02-22 13:17:00 Test Item Value Reference Range Interpretation Comments Hgb (test code = Hgb) 9.9 12.0-16.0 [place] [address]-02-22 13:17:00 Test Item Value Reference Range Interpretation Comments Hct (test code = Hct) 30.3 36.0-48.0 [place] [address]-02-22 13:17:00 Test Item Value Reference Range Interpretation Comments MCV (test code = MCV) 91.8 80.0-98.0 [place] [address]-02-22 13:17:00 Test Item Value Reference Range Interpretation Comments MCH (test code = MCH) 30.0 pg 27.0-31.0 [place] 391173-02-22 13:17:00 Test Item Value Reference Range Interpretation Comments MCHC (test code = MCHC) 32.7 32.0-36.0 [place] 391173-02-22 13:17:00 Test Item Value Reference Range Interpretation Comments RDW (test code = RDW) 14.4 11.5-14.5 [place] 391173-02-22 13:17:00 Test Item Value Reference Range Interpretation Comments Platelet (test code = Platelet) 136 133-450 [place] 391173-02-22 13:17:00 Test Item Value Reference Range Interpretation Comments MPV (test code = MPV) 8.7 7.4-10.4 [facility]2023-02-22 13:17:00 Test Item Value Reference Range Interpretation Comments Ca Ion WB (test code = Ca Ion WB) 1.06 1.05-1.25 [facility]2023-02-22 13:17:00 Test Item Value Reference Range Interpretation Comments Ca Ion at pH 7.4 WB (test code = Ca Ion 1.03 1.05-1.25 at pH 7.4 WB) [facility]2023-02-22 13:17:00 Test Item Value Reference Range Interpretation Comments Glucose Lvl (test code = Glucose Lvl) 65 70-99 [facility]2023-02-22 13:17:00 Test Item Value Reference Range Interpretation Comments BUN (test code = BUN) 39 7-22 [place] 468413-02-22 13:17:00 Test Item Value Reference Range Interpretation Comments Creatinine Lvl (test code = Creatinine 2.03 0.50-1.40 Lvl) [facility]2023-02-22 13:17:00 Test Item Value Reference Range Interpretation Comments Sodium Lvl (test code = Sodium Lvl) 139 135-145 [place] 468413-02-22 13:17:00 Test Item Value Reference Range Interpretation Comments Potassium Lvl (test code = Potassium 4.7 3.5-5.1 Lvl) [place] 468413-02-22 13:17:00 Test Item Value Reference Range Interpretation Comments Chloride Lvl (test code = Chloride Lvl) 107 95-109 [place] 468413-02-22 13:17:00 Test Item Value Reference Range Interpretation Comments CO2 (test code = CO2) 26 24-32 [place] 468413-02-22 13:17:00 Test Item Value Reference Range Interpretation Comments Calcium Lvl (test code = Calcium Lvl) 8.1 8.5-10.5 [place] [address]-02-22 13:17:00 Test Item Value Reference Range Interpretation Comments AGAP (test code = AGAP) 10.7 10.0-20.0 [place] 468413-02-22 13:17:00 Test Item Value Reference Range Interpretation Comments eGFR (test code = eGFR) 24 [place] 468413-02-22 13:17:00 Test Item Value Reference Range Interpretation Comments Magnesium Lvl (test code = Magnesium 2.7 1.8-2.4 Lvl) [place] 468413-02-22 13:17:00 Test Item Value Reference Range Interpretation Comments Phosphorus (test code = Phosphorus) 3.9 2.5-4.5 [place] [address]-02-22 13:17:00 Test Item Value Reference Range Interpretation Comments Glucose Lvl (test code = Glucose Lvl) 65 70-99 [place] [address]-02-22 13:17:00 Test Item Value Reference Range Interpretation Comments BUN (test code = BUN) 39 7-22 [place] [address]-02-22 13:17:00 Test Item Value Reference Range Interpretation Comments Creatinine Lvl (test code = Creatinine 2.03 0.50-1.40 Lvl) [place] [address]-02-22 13:17:00 Test Item Value Reference Range Interpretation Comments Sodium Lvl (test code = Sodium Lvl) 139 135-145 [place] 647753-02-22 13:17:00 Test Item Value Reference Range Interpretation Comments Potassium Lvl (test code = Potassium 4.7 3.5-5.1 Lvl) [place] 647753-02-22 13:17:00 Test Item Value Reference Range Interpretation Comments Chloride Lvl (test code = Chloride Lvl) 107 95-109 [facility]hmylfpZVJBXBOPB6146-12-58 13:17:00 Test Item Value Reference Range Interpretation Comments CO2 (test code = CO2) 26 24-32 [facility] KlebergSxuijljCZYVDOLFR8487-01-19 13:17:00 Test Item Value Reference Range Interpretation Comments Calcium Lvl (test code = Calcium Lvl) 8.1 8.5-10.5 [facility] KlebergLzdhmpjAEAXJKVPJ9899-56-43 13:17:00 Test Item Value Reference Range Interpretation Comments AGAP (test code = AGAP) 10.7 10.0-20.0 [facility]bergMimsmgeHDBJRORFB3377-73-61 13:17:00 Test Item Value Reference Range Interpretation Comments eGFR (test code = eGFR) 24 [facility] KlebergBhsnrugHUUUYOHOU7591-80-44 13:17:00 Test Item Value Reference Range Interpretation Comments Ca Ion WB (test code = Ca Ion WB) 1.06 1.05-1.25 [facility]bergCnlejfsWUMBOASOP2055-98-59 13:17:00 Test Item Value Reference Range Interpretation Comments Ca Ion at pH 7.4 WB (test code = Ca Ion 1.03 1.05-1.25 at pH 7.4 WB) [facility]bergDdzevluSVGGZUHXP1070-64-51 13:17:00 Test Item Value Reference Range Interpretation Comments Magnesium Lvl (test code = Magnesium 2.7 1.8-2.4 Lvl) [facility] KlebergYjtcqirFTVNPNGKN3715-77-12 13:17:00 Test Item Value Reference Range Interpretation Comments Phosphorus (test code = Phosphorus) 3.9 2.5-4.5 [place] 391173-02-22 13:17:00 Test Item Value Reference Range Interpretation Comments Segs (test code = Segs) 54.4 45.0-75.0 [place] [address]-02-22 13:17:00 Test Item Value Reference Range Interpretation Comments Lymphocytes (test code = Lymphocytes) 29.3 20.0-40.0 [place] 391173-02-22 13:17:00 Test Item Value Reference Range Interpretation Comments Monocytes (test code = Monocytes) 10.5 2.0-12.0 [place] 391173-02-22 13:17:00 Test Item Value Reference Range Interpretation Comments Eosinophils (test code = 5.0 See_Comment [A utomated message] The Eosinophils) system which ge nerated this result tra nsmitted reference range : <=4.0. The reference r christiano was not used to int erpret this result as normal/abnormal . [facility]AllenZohnipfVGCIPMWWTS8259-89-58 13:17:00 Test Item Value Reference Range Interpretation Comments Basophils (test code = 0.8 See_Comment [Aut omated message] The Basophils) system which ge nerated this result tra nsmitted reference range : <=1.0. The reference r christiano was not used to int erpret this result as normal/abnormal . [place] 391173-02-22 13:17:00 Test Item Value Reference Range Interpretation Comments Neutrophils # (test code = Neutrophils 4.1 1.5-8.1 #) [place] 391173-02-22 13:17:00 Test Item Value Reference Range Interpretation Comments Lymphocytes # (test code = Lymphocytes 2.2 1.0-5.5 #) [place] 391173-02-22 13:17:00 Test Item Value Reference Range Interpretation Comments Monocytes # (test code 0.8 See_Comment [Aut omated message] The = Monocytes #) system which generated this result tra nsmitted reference range : <=0.8. The reference r christiano was not used to int erpret this result as normal/abnormal . [facility]AllenMxdvfmvVFMXTIWIQP8924-01-24 13:17:00 Test Item Value Reference Range Interpretation Comments Eosinophils # (test code 0.4 See_Comment [A utomated message] The = Eosinophils #) system wh h generated this result tra nsmitted reference range : <=0.5. The reference r christiano was not used to int erpret this result as normal/abnormal . [place] 391173-02-22 13:17:00 Test Item Value Reference Range Interpretation Comments Basophils # (test code 0.1 See_Comment [Aut omated message] The = Basophils #) system which generated this result tra nsmitted reference range : <=0.2. The reference r christiano was not used to int erpret this result as normal/abnormal . [place] 391173-02-22 13:17:00 Test Item Value Reference Range Interpretation Comments WBC (test code = WBC) 7.5 3.7-10.4 [place] [address]-02-22 13:17:00 Test Item Value Reference Range Interpretation Comments RBC (test code = RBC) 3.30 4.20-5.40 [place] [address]-02-22 13:17:00 Test Item Value Reference Range Interpretation Comments Hgb (test code = Hgb) 9.9 12.0-16.0 [place] [address]-02-22 13:17:00 Test Item Value Reference Range Interpretation Comments Hct (test code = Hct) 30.3 36.0-48.0 [place] 391173-02-22 13:17:00 Test Item Value Reference Range Interpretation Comments MCV (test code = MCV) 91.8 80.0-98.0 [place] [address]-02-22 13:17:00 Test Item Value Reference Range Interpretation Comments MCH (test code = MCH) 30.0 pg 27.0-31.0 [place] 391173-02-22 13:17:00 Test Item Value Reference Range Interpretation Comments MCHC (test code = MCHC) 32.7 32.0-36.0 [place] [address]-02-22 13:17:00 Test Item Value Reference Range Interpretation Comments RDW (test code = RDW) 14.4 11.5-14.5 [place] [address]-02-22 13:17:00 Test Item Value Reference Range Interpretation Comments Platelet (test code = Platelet) 136 133-450 [place] 391173-02-22 13:17:00 Test Item Value Reference Range Interpretation Comments MPV (test code = MPV) 8.7 7.4-10.4 [place] [address]-02-22 13:17:00 Test Item Value Reference Range Interpretation Comments Segs (test code = Segs) 54.4 45.0-75.0 [place] [address]-02-22 13:17:00 Test Item Value Reference Range Interpretation Comments Lymphocytes (test code = Lymphocytes) 29.3 20.0-40.0 [place] [address]-02-22 13:17:00 Test Item Value Reference Range Interpretation Comments Monocytes (test code = Monocytes) 10.5 2.0-12.0 [place] [address]-02-22 13:17:00 Test Item Value Reference Range Interpretation Comments Eosinophils (test code = 5.0 See_Comment [A utomated message] The Eosinophils) system which ge nerated this result tra nsmitted reference range : <=4.0. The reference r christiano was not used to int erpret this result as normal/abnormal . [place] 391173-02-22 13:17:00 Test Item Value Reference Range Interpretation Comments Basophils (test code = 0.8 See_Comment [Aut omated message] The Basophils) system which ge nerated this result tra nsmitted reference range : <=1.0. The reference r christiano was not used to int erpret this result as normal/abnormal . [place] 391173-02-22 13:17:00 Test Item Value Reference Range Interpretation Comments Neutrophils # (test code = Neutrophils 4.1 1.5-8.1 #) [place] 391173-02-22 13:17:00 Test Item Value Reference Range Interpretation Comments Lymphocytes # (test code = Lymphocytes 2.2 1.0-5.5 #) [place] 391173-02-22 13:17:00 Test Item Value Reference Range Interpretation Comments Monocytes # (test code 0.8 See_Comment [Aut omated message] The = Monocytes #) system which generated this result tra nsmitted reference range : <=0.8. The reference r christiano was not used to int erpret this result as normal/abnormal . [facility]AllenAzgyaaiLOMFYDFVUC6088-72-59 13:17:00 Test Item Value Reference Range Interpretation Comments Eosinophils # (test code 0.4 See_Comment [A utomated message] The = Eosinophils #) system whic h generated this result tra nsmitted reference range : <=0.5. The reference r christiano was not used to int erpret this result as normal/abnormal . [place] 391173-02-22 13:17:00 Test Item Value Reference Range Interpretation Comments Basophils # (test code 0.1 See_Comment [Aut omated message] The = Basophils #) system which generated this result tra nsmitted reference range : <=0.2. The reference r christiano was not used to int erpret this result as normal/abnormal . [place] 391173-02-22 13:17:00 Test Item Value Reference Range Interpretation Comments WBC (test code = WBC) 7.5 3.7-10.4 [facility]AllenWqcixdtSJZEXNPTVB1682-88-69 13:17:00 Test Item Value Reference Range Interpretation Comments RBC (test code = RBC) 3.30 4.20-5.40 [facility] McAllenDvdhiclELZBAHBIIL8571-54-72 13:17:00 Test Item Value Reference Range Interpretation Comments Hgb (test code = Hgb) 9.9 12.0-16.0 [facility]AllenCswmzbcUTQFWWKGVR6102-71-16 13:17:00 Test Item Value Reference Range Interpretation Comments Hct (test code = Hct) 30.3 36.0-48.0 [facility] McAllenHnyuagoEOHFFEGWFT3879-00-34 13:17:00 Test Item Value Reference Range Interpretation Comments MCV (test code = MCV) 91.8 80.0-98.0 [facility] McAllenNvavyexRATQXVYQZN3734-26-18 13:17:00 Test Item Value Reference Range Interpretation Comments MCH (test code = MCH) 30.0 pg 27.0-31.0 [facility] McAllenDoilhxcIAQTQZOQOF5586-17-16 13:17:00 Test Item Value Reference Range Interpretation Comments MCHC (test code = MCHC) 32.7 32.0-36.0 [facility] McAllenUvctsflXBSIKNFYAN5769-75-39 13:17:00 Test Item Value Reference Range Interpretation Comments RDW (test code = RDW) 14.4 11.5-14.5 [facility] McAllenOvuzolvWTVXIRQVES4881-08-85 13:17:00 Test Item Value Reference Range Interpretation Comments Platelet (test code = Platelet) 136 133-450 [facility] McAllenDweiuufUOMLQDUCFS5720-04-42 13:17:00 Test Item Value Reference Range Interpretation Comments MPV (test code = MPV) 8.7 7.4-10.4 [facility] SLTIOLM6217-34-60 13:17:00 Test Item Value Reference Range Interpretation Comments Ca Ion WB (test code = Ca Ion WB) 1.06 1.05-1.25 [facility]ufkinROID AZSEZUU6192-90-24 13:17:00 Test Item Value Reference Range Interpretation Comments Ca Ion at pH 7.4 WB (test code = Ca Ion 1.03 1.05-1.25 at pH 7.4 WB) [facility]2023-02-22 13:17:00 Test Item Value Reference Range Interpretation Comments Glucose Lvl (test code = Glucose Lvl) 65 70-99 [place] 468413-02-22 13:17:00 Test Item Value Reference Range Interpretation Comments BUN (test code = BUN) 39 7-22 [place] 468413-02-22 13:17:00 Test Item Value Reference Range Interpretation Comments Creatinine Lvl (test code = Creatinine 2.03 0.50-1.40 Lvl) [facility]2023-02-22 13:17:00 Test Item Value Reference Range Interpretation Comments Sodium Lvl (test code = Sodium Lvl) 139 135-145 [place] 468413-02-22 13:17:00 Test Item Value Reference Range Interpretation Comments Potassium Lvl (test code = Potassium 4.7 3.5-5.1 Lvl) [facility]2023-02-22 13:17:00 Test Item Value Reference Range Interpretation Comments Chloride Lvl (test code = Chloride Lvl) 107 95-109 [place] 468413-02-22 13:17:00 Test Item Value Reference Range Interpretation Comments CO2 (test code = CO2) 26 24-32 [facility]2023-02-22 13:17:00 Test Item Value Reference Range Interpretation Comments Calcium Lvl (test code = Calcium Lvl) 8.1 8.5-10.5 [facility]2023-02-22 13:17:00 Test Item Value Reference Range Interpretation Comments AGAP (test code = AGAP) 10.7 10.0-20.0 [facility]2023-02-22 13:17:00 Test Item Value Reference Range Interpretation Comments eGFR (test code = eGFR) 24 [place] 468413-02-22 13:17:00 Test Item Value Reference Range Interpretation Comments Magnesium Lvl (test code = Magnesium 2.7 1.8-2.4 Lvl) [facility]2023-02-22 13:17:00 Test Item Value Reference Range Interpretation Comments Phosphorus (test code = Phosphorus) 3.9 2.5-4.5 [facility]bergXxsjxxcAKYCEYIXN9356-73-45 13:17:00 Test Item Value Reference Range Interpretation Comments Glucose Lvl (test code = Glucose Lvl) 65 70-99 [place] 647753-02-22 13:17:00 Test Item Value Reference Range Interpretation Comments BUN (test code = BUN) 39 7-22 [facility] KlebergWzadrjwWONOGFIMC7663-81-79 13:17:00 Test Item Value Reference Range Interpretation Comments Creatinine Lvl (test code = Creatinine 2.03 0.50-1.40 Lvl) [facility] KlebergOwkfbhhWTTBHMKHV0882-03-57 13:17:00 Test Item Value Reference Range Interpretation Comments Sodium Lvl (test code = Sodium Lvl) 139 135-145 [facility] KlebergJzkqgggOUVVWQZKI0839-37-58 13:17:00 Test Item Value Reference Range Interpretation Comments Potassium Lvl (test code = Potassium 4.7 3.5-5.1 Lvl) [facility] KlebergOxnrhfpXAWSSCXVJ0031-97-63 13:17:00 Test Item Value Reference Range Interpretation Comments Chloride Lvl (test code = Chloride Lvl) 107 95-109 [facility] KlebergCjwhckyPDGMJCBVC7206-20-88 13:17:00 Test Item Value Reference Range Interpretation Comments CO2 (test code = CO2) 26 24-32 [facility] KlebergNkcbwffYISRZVVEF5440-64-03 13:17:00 Test Item Value Reference Range Interpretation Comments Calcium Lvl (test code = Calcium Lvl) 8.1 8.5-10.5 [facility] KlebergIscwoclVFSANJUXD8536-12-57 13:17:00 Test Item Value Reference Range Interpretation Comments AGAP (test code = AGAP) 10.7 10.0-20.0 [facility] KlebergZyxnwseHIPEKRDAQ7878-82-72 13:17:00 Test Item Value Reference Range Interpretation Comments eGFR (test code = eGFR) 24 [facility] KlebergEoxemksEUTUIULVY8866-34-37 13:17:00 Test Item Value Reference Range Interpretation Comments Ca Ion WB (test code = Ca Ion WB) 1.06 1.05-1.25 [facility] KlebergSerbcxlROUBEODHA0774-57-70 13:17:00 Test Item Value Reference Range Interpretation Comments Ca Ion at pH 7.4 WB (test code = Ca Ion 1.03 1.05-1.25 at pH 7.4 WB) [facility] KlebergQegrcerTZAGFKAXC9027-90-17 13:17:00 Test Item Value Reference Range Interpretation Comments Magnesium Lvl (test code = Magnesium 2.7 1.8-2.4 Lvl) [facility] KlebergDonwcusAIDJFWGWV1921-91-01 13:17:00 Test Item Value Reference Range Interpretation Comments Phosphorus (test code = Phosphorus) 3.9 2.5-4.5 [place] 391173-02-22 13:17:00 Test Item Value Reference Range Interpretation Comments Segs (test code = Segs) 54.4 45.0-75.0 [place] 391173-02-22 13:17:00 Test Item Value Reference Range Interpretation Comments Lymphocytes (test code = Lymphocytes) 29.3 20.0-40.0 [place] 391173-02-22 13:17:00 Test Item Value Reference Range Interpretation Comments Monocytes (test code = Monocytes) 10.5 2.0-12.0 [place] 391173-02-22 13:17:00 Test Item Value Reference Range Interpretation Comments Eosinophils (test code = 5.0 See_Comment [A utomated message] The Eosinophils) system which ge nerated this result tra nsmitted reference range : <=4.0. The reference r christiano was not used to int erpret this result as normal/abnormal . [facility]AllenDnnomswBOZLWWKKMB2119-64-08 13:17:00 Test Item Value Reference Range Interpretation Comments Basophils (test code = 0.8 See_Comment [Aut omated message] The Basophils) system which ge nerated this result tra nsmitted reference range : <=1.0. The reference r christiano was not used to int erpret this result as normal/abnormal . [facility]AllenNvrnbdpFRSXTDNFEX3929-54-57 13:17:00 Test Item Value Reference Range Interpretation Comments Neutrophils # (test code = Neutrophils 4.1 1.5-8.1 #) [facility]AllenJekdkqhANLRAQIOUZ8058-61-24 13:17:00 Test Item Value Reference Range Interpretation Comments Lymphocytes # (test code = Lymphocytes 2.2 1.0-5.5 #) [place] 391173-02-22 13:17:00 Test Item Value Reference Range Interpretation Comments Monocytes # (test code 0.8 See_Comment [Aut omated message] The = Monocytes #) system which generated this result tra nsmitted reference range : <=0.8. The reference r christiano was not used to int erpret this result as normal/abnormal . [place] 391173-02-22 13:17:00 Test Item Value Reference Range Interpretation Comments Eosinophils # (test code 0.4 See_Comment [A utomated message] The = Eosinophils #) system whic h generated this result tra nsmitted reference range : <=0.5. The reference r christiano was not used to int erpret this result as normal/abnormal . [facility]AllenAkdlwyhFJHDZHMZEJ8381-85-83 13:17:00 Test Item Value Reference Range Interpretation Comments Basophils # (test code 0.1 See_Comment [Aut omated message] The = Basophils #) system which generated this result tra nsmitted reference range : <=0.2. The reference r christiano was not used to int erpret this result as normal/abnormal . [facility] McAllenHabvmbnSPVAABQUVP9399-09-35 13:17:00 Test Item Value Reference Range Interpretation Comments WBC (test code = WBC) 7.5 3.7-10.4 [place] 391173-02-22 13:17:00 Test Item Value Reference Range Interpretation Comments RBC (test code = RBC) 3.30 4.20-5.40 [place] 391173-02-22 13:17:00 Test Item Value Reference Range Interpretation Comments Hgb (test code = Hgb) 9.9 12.0-16.0 [place] 391173-02-22 13:17:00 Test Item Value Reference Range Interpretation Comments Hct (test code = Hct) 30.3 36.0-48.0 [place] 391173-02-22 13:17:00 Test Item Value Reference Range Interpretation Comments MCV (test code = MCV) 91.8 80.0-98.0 [place] 391173-02-22 13:17:00 Test Item Value Reference Range Interpretation Comments MCH (test code = MCH) 30.0 pg 27.0-31.0 [place] 391173-02-22 13:17:00 Test Item Value Reference Range Interpretation Comments MCHC (test code = MCHC) 32.7 32.0-36.0 [place] 391173-02-22 13:17:00 Test Item Value Reference Range Interpretation Comments RDW (test code = RDW) 14.4 11.5-14.5 [place] 391173-02-22 13:17:00 Test Item Value Reference Range Interpretation Comments Platelet (test code = Platelet) 136 133-450 [place] 391173-02-22 13:17:00 Test Item Value Reference Range Interpretation Comments MPV (test code = MPV) 8.7 7.4-10.4 [place] [address]-02-22 13:17:00 Test Item Value Reference Range Interpretation Comments Segs (test code = Segs) 54.4 45.0-75.0 [place] 391173-02-22 13:17:00 Test Item Value Reference Range Interpretation Comments Lymphocytes (test code = Lymphocytes) 29.3 20.0-40.0 [place] [address]-02-22 13:17:00 Test Item Value Reference Range Interpretation Comments Monocytes (test code = Monocytes) 10.5 2.0-12.0 [place] 391173-02-22 13:17:00 Test Item Value Reference Range Interpretation Comments Eosinophils (test code = 5.0 See_Comment [A utomated message] The Eosinophils) system which ge nerated this result tra nsmitted reference range : <=4.0. The reference r christiano was not used to int erpret this result as normal/abnormal . [place] 391173-02-22 13:17:00 Test Item Value Reference Range Interpretation Comments Basophils (test code = 0.8 See_Comment [Aut omated message] The Basophils) system which ge nerated this result tra nsmitted reference range : <=1.0. The reference r christiano was not used to int erpret this result as normal/abnormal . [facility]AllenGkwskyoKUNUNBZRGD1793-39-24 13:17:00 Test Item Value Reference Range Interpretation Comments Neutrophils # (test code = Neutrophils 4.1 1.5-8.1 #) [place] 391173-02-22 13:17:00 Test Item Value Reference Range Interpretation Comments Lymphocytes # (test code = Lymphocytes 2.2 1.0-5.5 #) [place] [address]-02-22 13:17:00 Test Item Value Reference Range Interpretation Comments Monocytes # (test code 0.8 See_Comment [Aut omated message] The = Monocytes #) system which generated this result tra nsmitted reference range : <=0.8. The reference r christiano was not used to int erpret this result as normal/abnormal . [place] [address]-02-22 13:17:00 Test Item Value Reference Range Interpretation Comments Eosinophils # (test code 0.4 See_Comment [A utomated message] The = Eosinophils #) system whic h generated this result tra nsmitted reference range : <=0.5. The reference r christiano was not used to int erpret this result as normal/abnormal . [facility] McAllenTpigcnpIMCDBOZBYJ0859-52-26 13:17:00 Test Item Value Reference Range Interpretation Comments Basophils # (test code 0.1 See_Comment [Aut omated message] The = Basophils #) system which generated this result tra nsmitted reference range : <=0.2. The reference r christiano was not used to int erpret this result as normal/abnormal . [facility] McAllenAclqrjwUVMGZNWQDT7886-60-99 13:17:00 Test Item Value Reference Range Interpretation Comments WBC (test code = WBC) 7.5 3.7-10.4 [place] 391173-02-22 13:17:00 Test Item Value Reference Range Interpretation Comments RBC (test code = RBC) 3.30 4.20-5.40 [place] 391173-02-22 13:17:00 Test Item Value Reference Range Interpretation Comments Hgb (test code = Hgb) 9.9 12.0-16.0 [place] 391173-02-22 13:17:00 Test Item Value Reference Range Interpretation Comments Hct (test code = Hct) 30.3 36.0-48.0 [place] 391173-02-22 13:17:00 Test Item Value Reference Range Interpretation Comments MCV (test code = MCV) 91.8 80.0-98.0 [place] 391173-02-22 13:17:00 Test Item Value Reference Range Interpretation Comments MCH (test code = MCH) 30.0 pg 27.0-31.0 [place] 391173-02-22 13:17:00 Test Item Value Reference Range Interpretation Comments MCHC (test code = MCHC) 32.7 32.0-36.0 [place] 391173-02-22 13:17:00 Test Item Value Reference Range Interpretation Comments RDW (test code = RDW) 14.4 11.5-14.5 [place] 391173-02-22 13:17:00 Test Item Value Reference Range Interpretation Comments Platelet (test code = Platelet) 136 133-450 [facility] 13:17:00 Test Item Value Reference Range Interpretation Comments MPV (test code = MPV) 8.7 7.4-10.4 [facility]RO[facility] ZUZGNLG4878-22-56 13:17:00 Test Item Value Reference Range Interpretation Comments Ca Ion WB (test code = Ca Ion WB) 1.06 1.05-1.25 [facility]2023-02-22 13:17:00 Test Item Value Reference Range Interpretation Comments Ca Ion at pH 7.4 WB (test code = Ca Ion 1.03 1.05-1.25 at pH 7.4 WB) [facility]2023-02-22 13:17:00 Test Item Value Reference Range Interpretation Comments Glucose Lvl (test code = Glucose Lvl) 65 70-99 [place] 468413-02-22 13:17:00 Test Item Value Reference Range Interpretation Comments BUN (test code = BUN) 39 7-22 [facility]2023-02-22 13:17:00 Test Item Value Reference Range Interpretation Comments Creatinine Lvl (test code = Creatinine 2.03 0.50-1.40 Lvl) [facility]2023-02-22 13:17:00 Test Item Value Reference Range Interpretation Comments Sodium Lvl (test code = Sodium Lvl) 139 135-145 [facility]2023-02-22 13:17:00 Test Item Value Reference Range Interpretation Comments Potassium Lvl (test code = Potassium 4.7 3.5-5.1 Lvl) [facility]2023-02-22 13:17:00 Test Item Value Reference Range Interpretation Comments Chloride Lvl (test code = Chloride Lvl) 107 95-109 [place] 468413-02-22 13:17:00 Test Item Value Reference Range Interpretation Comments CO2 (test code = CO2) 26 24-32 [place] 468413-02-22 13:17:00 Test Item Value Reference Range Interpretation Comments Calcium Lvl (test code = Calcium Lvl) 8.1 8.5-10.5 [place] 468413-02-22 13:17:00 Test Item Value Reference Range Interpretation Comments AGAP (test code = AGAP) 10.7 10.0-20.0 [place] 468413-02-22 13:17:00 Test Item Value Reference Range Interpretation Comments eGFR (test code = eGFR) 24 [facility]2023-02-22 13:17:00 Test Item Value Reference Range Interpretation Comments Magnesium Lvl (test code = Magnesium 2.7 1.8-2.4 Lvl) [facility]2023-02-22 13:17:00 Test Item Value Reference Range Interpretation Comments Phosphorus (test code = Phosphorus) 3.9 2.5-4.5 [place] 647753-02-22 13:17:00 Test Item Value Reference Range Interpretation Comments Glucose Lvl (test code = Glucose Lvl) 65 70-99 [place] 647753-02-22 13:17:00 Test Item Value Reference Range Interpretation Comments BUN (test code = BUN) 39 7-22 [place] 647753-02-22 13:17:00 Test Item Value Reference Range Interpretation Comments Creatinine Lvl (test code = Creatinine 2.03 0.50-1.40 Lvl) [facility]KwyetsnOAPNCJMTY8815-21-85 13:17:00 Test Item Value Reference Range Interpretation Comments Sodium Lvl (test code = Sodium Lvl) 139 135-145 [facility] KlebergJxsorbuVILVGZEVN9604-54-26 13:17:00 Test Item Value Reference Range Interpretation Comments Potassium Lvl (test code = Potassium 4.7 3.5-5.1 Lvl) [place] 647753-02-22 13:17:00 Test Item Value Reference Range Interpretation Comments Chloride Lvl (test code = Chloride Lvl) 107 95-109 [place] 647753-02-22 13:17:00 Test Item Value Reference Range Interpretation Comments CO2 (test code = CO2) 26 24-32 [place] 647753-02-22 13:17:00 Test Item Value Reference Range Interpretation Comments Calcium Lvl (test code = Calcium Lvl) 8.1 8.5-10.5 [place] 647753-02-22 13:17:00 Test Item Value Reference Range Interpretation Comments AGAP (test code = AGAP) 10.7 10.0-20.0 [place] 647753-02-22 13:17:00 Test Item Value Reference Range Interpretation Comments eGFR (test code = eGFR) 24 [facility] KlebergFcanjxyITIYQIXWA0455-03-64 13:17:00 Test Item Value Reference Range Interpretation Comments Ca Ion WB (test code = Ca Ion WB) 1.06 1.05-1.25 [facility] KlebergOewivymBNLKHMEBI9983-72-46 13:17:00 Test Item Value Reference Range Interpretation Comments Ca Ion at pH 7.4 WB (test code = Ca Ion 1.03 1.05-1.25 at pH 7.4 WB) [facility] KlebergReffpmsWPNWJMVVS9739-77-73 13:17:00 Test Item Value Reference Range Interpretation Comments Magnesium Lvl (test code = Magnesium 2.7 1.8-2.4 Lvl) [facility] KlebergIflkooeTUJVDHNHT3084-01-94 13:17:00 Test Item Value Reference Range Interpretation Comments Phosphorus (test code = Phosphorus) 3.9 2.5-4.5 [facility]AllenZuduzcxZNPWKIMFYE0062-90-44 13:17:00 Test Item Value Reference Range Interpretation Comments Segs (test code = Segs) 54.4 45.0-75.0 [place] 391173-02-22 13:17:00 Test Item Value Reference Range Interpretation Comments Lymphocytes (test code = Lymphocytes) 29.3 20.0-40.0 [facility]AllenXqkiphmKILVHABVOT8250-37-90 13:17:00 Test Item Value Reference Range Interpretation Comments Monocytes (test code = Monocytes) 10.5 2.0-12.0 [facility]AllenYtpftbqJSZVKXWPAZ2269-13-68 13:17:00 Test Item Value Reference Range Interpretation Comments Eosinophils (test code = 5.0 See_Comment [A utomated message] The Eosinophils) system which nerated this result tra nsmitted reference range : <=4.0. The reference r christiano was not used to int erpret this result as normal/abnormal . [facility] McAllenTwifzxyEVZBQWZINU1328-49-93 13:17:00 Test Item Value Reference Range Interpretation Comments Basophils (test code = 0.8 See_Comment [Aut omated message] The Basophils) system which ge nerated this result tra nsmitted reference range : <=1.0. The reference r christiano was not used to int erpret this result as normal/abnormal . [facility] McAllenRluazsjKOCWZAIBHU1886-96-69 13:17:00 Test Item Value Reference Range Interpretation Comments Neutrophils # (test code = Neutrophils 4.1 1.5-8.1 #) [place] 391173-02-22 13:17:00 Test Item Value Reference Range Interpretation Comments Lymphocytes # (test code = Lymphocytes 2.2 1.0-5.5 #) [place] 391173-02-22 13:17:00 Test Item Value Reference Range Interpretation Comments Monocytes # (test code 0.8 See_Comment [Aut omated message] The = Monocytes #) system which generated this result tra nsmitted reference range : <=0.8. The reference r christiano was not used to int erpret this result as normal/abnormal . [place] 391173-02-22 13:17:00 Test Item Value Reference Range Interpretation Comments Eosinophils # (test code 0.4 See_Comment [A utomated message] The = Eosinophils #) system whic h generated this result tra nsmitted reference range : <=0.5. The reference r christiano was not used to int erpret this result as normal/abnormal . [facility] McAllenCfjnjaiGBHFIQIVCW8105-15-70 13:17:00 Test Item Value Reference Range Interpretation Comments Basophils # (test code 0.1 See_Comment [Aut omated message] The = Basophils #) system which generated this result tra nsmitted reference range : <=0.2. The reference r christiano was not used to int erpret this result as normal/abnormal . [facility] McAllenTlltyegQLVXKDPKML7773-72-00 13:17:00 Test Item Value Reference Range Interpretation Comments WBC (test code = WBC) 7.5 3.7-10.4 [place] 391173-02-22 13:17:00 Test Item Value Reference Range Interpretation Comments RBC (test code = RBC) 3.30 4.20-5.40 [place] [address]-02-22 13:17:00 Test Item Value Reference Range Interpretation Comments Hgb (test code = Hgb) 9.9 12.0-16.0 [place] [address]-02-22 13:17:00 Test Item Value Reference Range Interpretation Comments Hct (test code = Hct) 30.3 36.0-48.0 [place] [address]-02-22 13:17:00 Test Item Value Reference Range Interpretation Comments MCV (test code = MCV) 91.8 80.0-98.0 [place] [address]-02-22 13:17:00 Test Item Value Reference Range Interpretation Comments MCH (test code = MCH) 30.0 pg 27.0-31.0 [place] 391173-02-22 13:17:00 Test Item Value Reference Range Interpretation Comments MCHC (test code = MCHC) 32.7 32.0-36.0 [place] 391173-02-22 13:17:00 Test Item Value Reference Range Interpretation Comments RDW (test code = RDW) 14.4 11.5-14.5 [place] 391173-02-22 13:17:00 Test Item Value Reference Range Interpretation Comments Platelet (test code = Platelet) 136 133-450 [place] 391173-02-22 13:17:00 Test Item Value Reference Range Interpretation Comments MPV (test code = MPV) 8.7 7.4-10.4 [place] [address]-02-22 13:17:00 Test Item Value Reference Range Interpretation Comments Segs (test code = Segs) 54.4 45.0-75.0 [place] [address]-02-22 13:17:00 Test Item Value Reference Range Interpretation Comments Lymphocytes (test code = Lymphocytes) 29.3 20.0-40.0 [place] [address]-02-22 13:17:00 Test Item Value Reference Range Interpretation Comments Monocytes (test code = Monocytes) 10.5 2.0-12.0 [place] [address]-02-22 13:17:00 Test Item Value Reference Range Interpretation Comments Eosinophils (test code = 5.0 See_Comment [A utomated message] The Eosinophils) system which ge nerated this result tra nsmitted reference range : <=4.0. The reference r christiano was not used to int erpret this result as normal/abnormal . [place] [address]-02-22 13:17:00 Test Item Value Reference Range Interpretation Comments Basophils (test code = 0.8 See_Comment [Aut omated message] The Basophils) system which ge nerated this result tra nsmitted reference range : <=1.0. The reference r christiano was not used to int erpret this result as normal/abnormal . [facility]AllenXehuzboSSBMPNBPET5811-60-21 13:17:00 Test Item Value Reference Range Interpretation Comments Neutrophils # (test code = Neutrophils 4.1 1.5-8.1 #) [facility] McAllenNdzwbxjDIUSDQLLOP7839-06-30 13:17:00 Test Item Value Reference Range Interpretation Comments Lymphocytes # (test code = Lymphocytes 2.2 1.0-5.5 #) [facility] McAllenHljqmbzRYUSVYLWMF6767-44-68 13:17:00 Test Item Value Reference Range Interpretation Comments Monocytes # (test code 0.8 See_Comment [Aut omated message] The = Monocytes #) system which generated this result tra nsmitted reference range : <=0.8. The reference r christiano was not used to int erpret this result as normal/abnormal . [facility] McAllenFyfgnxbBELHLNEWZO9262-05-35 13:17:00 Test Item Value Reference Range Interpretation Comments Eosinophils # (test code 0.4 See_Comment [A utomated message] The = Eosinophils #) system whic h generated this result tra nsmitted reference range : <=0.5. The reference r christiano was not used to int erpret this result as normal/abnormal . [facility] McAllenJytwnimFUHUSUWBKL5464-81-98 13:17:00 Test Item Value Reference Range Interpretation Comments Basophils # (test code 0.1 See_Comment [Aut omated message] The = Basophils #) system which generated this result tra nsmitted reference range : <=0.2. The reference r christiano was not used to int erpret this result as normal/abnormal . [facility] McAllenIizfiqaCODTSGPAHK2379-16-28 13:17:00 Test Item Value Reference Range Interpretation Comments WBC (test code = WBC) 7.5 3.7-10.4 [place] 391173-02-22 13:17:00 Test Item Value Reference Range Interpretation Comments RBC (test code = RBC) 3.30 4.20-5.40 [place] 391173-02-22 13:17:00 Test Item Value Reference Range Interpretation Comments Hgb (test code = Hgb) 9.9 12.0-16.0 [place] 391173-02-22 13:17:00 Test Item Value Reference Range Interpretation Comments Hct (test code = Hct) 30.3 36.0-48.0 [place] [address]-02-22 13:17:00 Test Item Value Reference Range Interpretation Comments MCV (test code = MCV) 91.8 80.0-98.0 [place] 391173-02-22 13:17:00 Test Item Value Reference Range Interpretation Comments MCH (test code = MCH) 30.0 pg 27.0-31.0 [place] 391173-02-22 13:17:00 Test Item Value Reference Range Interpretation Comments MCHC (test code = MCHC) 32.7 32.0-36.0 [facility]AllenUtwbjuiFDCKBOIWII9361-85-69 13:17:00 Test Item Value Reference Range Interpretation Comments RDW (test code = RDW) 14.4 11.5-14.5 [place] 391173-02-22 13:17:00 Test Item Value Reference Range Interpretation Comments Platelet (test code = Platelet) 136 133-450 [facility] McAllenMxrpmwcYUIXTPGNLM5108-31-55 13:17:00 Test Item Value Reference Range Interpretation Comments MPV (test code = MPV) 8.7 7.4-10.4 [facility]2023-02-22 13:17:00 Test Item Value Reference Range Interpretation Comments Ca Ion WB (test code = Ca Ion WB) 1.06 1.05-1.25 [facility]2023-02-22 13:17:00 Test Item Value Reference Range Interpretation Comments Ca Ion at pH 7.4 WB (test code = Ca Ion 1.03 1.05-1.25 at pH 7.4 WB) [facility]2023-02-22 13:17:00 Test Item Value Reference Range Interpretation Comments Glucose Lvl (test code = Glucose Lvl) 65 70-99 [place] 468413-02-22 13:17:00 Test Item Value Reference Range Interpretation Comments BUN (test code = BUN) 39 7-22 [place] 468413-02-22 13:17:00 Test Item Value Reference Range Interpretation Comments Creatinine Lvl (test code = Creatinine 2.03 0.50-1.40 Lvl) [facility]2023-02-22 13:17:00 Test Item Value Reference Range Interpretation Comments Sodium Lvl (test code = Sodium Lvl) 139 135-145 [place] 468413-02-22 13:17:00 Test Item Value Reference Range Interpretation Comments Potassium Lvl (test code = Potassium 4.7 3.5-5.1 Lvl) [place] 468413-02-22 13:17:00 Test Item Value Reference Range Interpretation Comments Chloride Lvl (test code = Chloride Lvl) 107 95-109 [place] 468413-02-22 13:17:00 Test Item Value Reference Range Interpretation Comments CO2 (test code = CO2) 26 24-32 [place] 468413-02-22 13:17:00 Test Item Value Reference Range Interpretation Comments Calcium Lvl (test code = Calcium Lvl) 8.1 8.5-10.5 [place] 468413-02-22 13:17:00 Test Item Value Reference Range Interpretation Comments AGAP (test code = AGAP) 10.7 10.0-20.0 [place] 468413-02-22 13:17:00 Test Item Value Reference Range Interpretation Comments eGFR (test code = eGFR) 24 [place] 468413-02-22 13:17:00 Test Item Value Reference Range Interpretation Comments Magnesium Lvl (test code = Magnesium 2.7 1.8-2.4 Lvl) [place] 468413-02-22 13:17:00 Test Item Value Reference Range Interpretation Comments Phosphorus (test code = Phosphorus) 3.9 2.5-4.5 [place] 647753-02-22 13:17:00 Test Item Value Reference Range Interpretation Comments Glucose Lvl (test code = Glucose Lvl) 65 70-99 [place] 1999[address]-02-22 13:17:00 Test Item Value Reference Range Interpretation Comments BUN (test code = BUN) 39 7-22 [place] [address]-02-22 13:17:00 Test Item Value Reference Range Interpretation Comments Creatinine Lvl (test code = Creatinine 2.03 0.50-1.40 Lvl) [place] 647753-02-22 13:17:00 Test Item Value Reference Range Interpretation Comments Sodium Lvl (test code = Sodium Lvl) 139 135-145 [place] [address]-02-22 13:17:00 Test Item Value Reference Range Interpretation Comments Potassium Lvl (test code = Potassium 4.7 3.5-5.1 Lvl) [facility]bergRbbikorSLXLIEUCT5769-53-38 13:17:00 Test Item Value Reference Range Interpretation Comments Chloride Lvl (test code = Chloride Lvl) 107 95-109 [place] 647753-02-22 13:17:00 Test Item Value Reference Range Interpretation Comments CO2 (test code = CO2) 26 24-32 [facility] KlebergXqxqneqZCILSVIGP5594-95-07 13:17:00 Test Item Value Reference Range Interpretation Comments Calcium Lvl (test code = Calcium Lvl) 8.1 8.5-10.5 [place] 647753-02-22 13:17:00 Test Item Value Reference Range Interpretation Comments AGAP (test code = AGAP) 10.7 10.0-20.0 [place] 647753-02-22 13:17:00 Test Item Value Reference Range Interpretation Comments eGFR (test code = eGFR) 24 [facility] KlebergSzkbyufQXISMUTJR5263-41-44 13:17:00 Test Item Value Reference Range Interpretation Comments Ca Ion WB (test code = Ca Ion WB) 1.06 1.05-1.25 [place] 647753-02-22 13:17:00 Test Item Value Reference Range Interpretation Comments Ca Ion at pH 7.4 WB (test code = Ca Ion 1.03 1.05-1.25 at pH 7.4 WB) [facility] KlebergUfeyheyLFVSCJLRB9468-17-10 13:17:00 Test Item Value Reference Range Interpretation Comments Magnesium Lvl (test code = Magnesium 2.7 1.8-2.4 Lvl) [facility]bergKzubfpfOTLZCJXYR9994-04-16 13:17:00 Test Item Value Reference Range Interpretation Comments Phosphorus (test code = Phosphorus) 3.9 2.5-4.5 [place] 391173-02-22 13:17:00 Test Item Value Reference Range Interpretation Comments Segs (test code = Segs) 54.4 45.0-75.0 [place] [address]-02-22 13:17:00 Test Item Value Reference Range Interpretation Comments Lymphocytes (test code = Lymphocytes) 29.3 20.0-40.0 [place] 391173-02-22 13:17:00 Test Item Value Reference Range Interpretation Comments Monocytes (test code = Monocytes) 10.5 2.0-12.0 [place] 391173-02-22 13:17:00 Test Item Value Reference Range Interpretation Comments Eosinophils (test code = 5.0 See_Comment [A utomated message] The Eosinophils) system which ge nerated this result tra nsmitted reference range : <=4.0. The reference r christiano was not used to int erpret this result as normal/abnormal . [facility]AllenNuuemxqRCNYYAROOP3399-75-48 13:17:00 Test Item Value Reference Range Interpretation Comments Basophils (test code = 0.8 See_Comment [Aut omated message] The Basophils) system which ge nerated this result tra nsmitted reference range : <=1.0. The reference r christiano was not used to int erpret this result as normal/abnormal . [facility]AllenLkgsxpfRZSDRHYGGW1957-60-59 13:17:00 Test Item Value Reference Range Interpretation Comments Neutrophils # (test code = Neutrophils 4.1 1.5-8.1 #) [facility]AllenDcqiyywKTXQAAMXYV4386-03-62 13:17:00 Test Item Value Reference Range Interpretation Comments Lymphocytes # (test code = Lymphocytes 2.2 1.0-5.5 #) [place] 391173-02-22 13:17:00 Test Item Value Reference Range Interpretation Comments Monocytes # (test code 0.8 See_Comment [Aut omated message] The = Monocytes #) system which generated this result tra nsmitted reference range : <=0.8. The reference r christiano was not used to int erpret this result as normal/abnormal . [facility]AllenZetakewWCCCFDHRFE2966-04-93 13:17:00 Test Item Value Reference Range Interpretation Comments Eosinophils # (test code 0.4 See_Comment [A utomated message] The = Eosinophils #) system whic h generated this result tra nsmitted reference range : <=0.5. The reference r christiano was not used to int erpret this result as normal/abnormal . [facility]AllenZoyrnedUHONHEEPNU4572-16-10 13:17:00 Test Item Value Reference Range Interpretation Comments Basophils # (test code 0.1 See_Comment [Aut omated message] The = Basophils #) system which generated this result tra nsmitted reference range : <=0.2. The reference r christiano was not used to int erpret this result as normal/abnormal . [place] 391173-02-22 13:17:00 Test Item Value Reference Range Interpretation Comments WBC (test code = WBC) 7.5 3.7-10.4 [place] 391173-02-22 13:17:00 Test Item Value Reference Range Interpretation Comments RBC (test code = RBC) 3.30 4.20-5.40 [place] 391173-02-22 13:17:00 Test Item Value Reference Range Interpretation Comments Hgb (test code = Hgb) 9.9 12.0-16.0 [place] 391173-02-22 13:17:00 Test Item Value Reference Range Interpretation Comments Hct (test code = Hct) 30.3 36.0-48.0 [place] [address]-02-22 13:17:00 Test Item Value Reference Range Interpretation Comments MCV (test code = MCV) 91.8 80.0-98.0 [place] [address]-02-22 13:17:00 Test Item Value Reference Range Interpretation Comments MCH (test code = MCH) 30.0 pg 27.0-31.0 [place] 391173-02-22 13:17:00 Test Item Value Reference Range Interpretation Comments MCHC (test code = MCHC) 32.7 32.0-36.0 [place] 391173-02-22 13:17:00 Test Item Value Reference Range Interpretation Comments RDW (test code = RDW) 14.4 11.5-14.5 [place] 391173-02-22 13:17:00 Test Item Value Reference Range Interpretation Comments Platelet (test code = Platelet) 136 133-450 [place] 391173-02-22 13:17:00 Test Item Value Reference Range Interpretation Comments MPV (test code = MPV) 8.7 7.4-10.4 [place] [address]-02-22 13:17:00 Test Item Value Reference Range Interpretation Comments Segs (test code = Segs) 54.4 45.0-75.0 [place] [address]-02-22 13:17:00 Test Item Value Reference Range Interpretation Comments Lymphocytes (test code = Lymphocytes) 29.3 20.0-40.0 [place] [address]-02-22 13:17:00 Test Item Value Reference Range Interpretation Comments Monocytes (test code = Monocytes) 10.5 2.0-12.0 [place] [address]-02-22 13:17:00 Test Item Value Reference Range Interpretation Comments Eosinophils (test code = 5.0 See_Comment [A utomated message] The Eosinophils) system which ge nerated this result tra nsmitted reference range : <=4.0. The reference r christiano was not used to int erpret this result as normal/abnormal . [place] [address]-02-22 13:17:00 Test Item Value Reference Range Interpretation Comments Basophils (test code = 0.8 See_Comment [Aut omated message] The Basophils) system which ge nerated this result tra nsmitted reference range : <=1.0. The reference r christiano was not used to int erpret this result as normal/abnormal . [place] [address]-02-22 13:17:00 Test Item Value Reference Range Interpretation Comments Neutrophils # (test code = Neutrophils 4.1 1.5-8.1 #) [place] [address]-02-22 13:17:00 Test Item Value Reference Range Interpretation Comments Lymphocytes # (test code = Lymphocytes 2.2 1.0-5.5 #) [place] [address]-02-22 13:17:00 Test Item Value Reference Range Interpretation Comments Monocytes # (test code 0.8 See_Comment [Aut omated message] The = Monocytes #) system which generated this result tra nsmitted reference range : <=0.8. The reference r christiano was not used to int erpret this result as normal/abnormal . [place] [address]-02-22 13:17:00 Test Item Value Reference Range Interpretation Comments Eosinophils # (test code 0.4 See_Comment [A utomated message] The = Eosinophils #) system whic h generated this result tra nsmitted reference range : <=0.5. The reference r christiano was not used to int erpret this result as normal/abnormal . [place] [address]-02-22 13:17:00 Test Item Value Reference Range Interpretation Comments Basophils # (test code 0.1 See_Comment [Aut omated message] The = Basophils #) system which generated this result tra nsmitted reference range : <=0.2. The reference r christiano was not used to int erpret this result as normal/abnormal . [facility]AllenWomljwpYWBLKRQSMP3838-51-14 13:17:00 Test Item Value Reference Range Interpretation Comments WBC (test code = WBC) 7.5 3.7-10.4 [facility]AllenHvqdlvtNRBZCESCCF9686-38-51 13:17:00 Test Item Value Reference Range Interpretation Comments RBC (test code = RBC) 3.30 4.20-5.40 [facility] McAllenZhwlarsEHUEGXIKYZ2090-30-48 13:17:00 Test Item Value Reference Range Interpretation Comments Hgb (test code = Hgb) 9.9 12.0-16.0 [facility] McAllenMwabgnoNMYMDLVWIC1453-04-80 13:17:00 Test Item Value Reference Range Interpretation Comments Hct (test code = Hct) 30.3 36.0-48.0 [facility] McAllenJmdlkhqVZLTJKVGRA6684-24-46 13:17:00 Test Item Value Reference Range Interpretation Comments MCV (test code = MCV) 91.8 80.0-98.0 [facility] McAllenQfpjgmrOCREUTPQCH5632-58-06 13:17:00 Test Item Value Reference Range Interpretation Comments MCH (test code = MCH) 30.0 pg 27.0-31.0 [facility] McAllenKjdkqhrEPPFCPNJAQ0330-70-34 13:17:00 Test Item Value Reference Range Interpretation Comments MCHC (test code = MCHC) 32.7 32.0-36.0 [facility]AllenMnwyyioMJIXLSVWQU7450-67-40 13:17:00 Test Item Value Reference Range Interpretation Comments RDW (test code = RDW) 14.4 11.5-14.5 [facility] McAllenAtiehptOJJMWZTJAT0833-49-73 13:17:00 Test Item Value Reference Range Interpretation Comments Platelet (test code = Platelet) 136 133-450 [facility] McAllenEixchciYTLAJTCRRJ3000-48-58 13:17:00 Test Item Value Reference Range Interpretation Comments MPV (test code = MPV) 8.7 7.4-10.4 [facility] KCMBFPC1806-15-68 13:17:00 Test Item Value Reference Range Interpretation Comments Ca Ion WB (test code = Ca Ion WB) 1.06 1.05-1.25 [facility]ufkinROID BMCUJAG2241-20-85 13:17:00 Test Item Value Reference Range Interpretation Comments Ca Ion at pH 7.4 WB (test code = Ca Ion 1.03 1.05-1.25 at pH 7.4 WB) [place] 468413-02-22 13:17:00 Test Item Value Reference Range Interpretation Comments Glucose Lvl (test code = Glucose Lvl) 65 70-99 [place] 468413-02-22 13:17:00 Test Item Value Reference Range Interpretation Comments BUN (test code = BUN) 39 7-22 [place] 468413-02-22 13:17:00 Test Item Value Reference Range Interpretation Comments Creatinine Lvl (test code = Creatinine 2.03 0.50-1.40 Lvl) [place] 468413-02-22 13:17:00 Test Item Value Reference Range Interpretation Comments Sodium Lvl (test code = Sodium Lvl) 139 135-145 [place] 468413-02-22 13:17:00 Test Item Value Reference Range Interpretation Comments Potassium Lvl (test code = Potassium 4.7 3.5-5.1 Lvl) [place] 468413-02-22 13:17:00 Test Item Value Reference Range Interpretation Comments Chloride Lvl (test code = Chloride Lvl) 107 95-109 [place] 468413-02-22 13:17:00 Test Item Value Reference Range Interpretation Comments CO2 (test code = CO2) 26 24-32 [place] 468413-02-22 13:17:00 Test Item Value Reference Range Interpretation Comments Calcium Lvl (test code = Calcium Lvl) 8.1 8.5-10.5 [place] 468413-02-22 13:17:00 Test Item Value Reference Range Interpretation Comments AGAP (test code = AGAP) 10.7 10.0-20.0 [place] 468413-02-22 13:17:00 Test Item Value Reference Range Interpretation Comments eGFR (test code = eGFR) 24 [place] 468413-02-22 13:17:00 Test Item Value Reference Range Interpretation Comments Magnesium Lvl (test code = Magnesium 2.7 1.8-2.4 Lvl) [place] 468413-02-22 13:17:00 Test Item Value Reference Range Interpretation Comments Phosphorus (test code = Phosphorus) 3.9 2.5-4.5 [place] 647753-02-22 13:17:00 Test Item Value Reference Range Interpretation Comments Glucose Lvl (test code = Glucose Lvl) 65 70-99 [facility]bergDgktrkmBAARTSOBN1309-89-00 13:17:00 Test Item Value Reference Range Interpretation Comments BUN (test code = BUN) 39 7-22 [facility] KlebergLhdpotbWEETXNWWQ8196-84-13 13:17:00 Test Item Value Reference Range Interpretation Comments Creatinine Lvl (test code = Creatinine 2.03 0.50-1.40 Lvl) [facility] KlebergGwhazrnHABWLOMPT1912-18-00 13:17:00 Test Item Value Reference Range Interpretation Comments Sodium Lvl (test code = Sodium Lvl) 139 135-145 [facility] KlebergPoaxyqiSEDWNFSEQ8338-98-76 13:17:00 Test Item Value Reference Range Interpretation Comments Potassium Lvl (test code = Potassium 4.7 3.5-5.1 Lvl) [facility] KlebergAdngkqyUWSFHAPNQ5826-36-38 13:17:00 Test Item Value Reference Range Interpretation Comments Chloride Lvl (test code = Chloride Lvl) 107 95-109 [facility] KlebergKadmwguGQVUCHPKX5320-68-15 13:17:00 Test Item Value Reference Range Interpretation Comments CO2 (test code = CO2) 26 24-32 [facility] KlebergEpnperjEYPLOTNZS8564-10-87 13:17:00 Test Item Value Reference Range Interpretation Comments Calcium Lvl (test code = Calcium Lvl) 8.1 8.5-10.5 [facility] KlebergBbckyrwXHAJZYOPP9011-53-89 13:17:00 Test Item Value Reference Range Interpretation Comments AGAP (test code = AGAP) 10.7 10.0-20.0 [facility] KlebergEapqesqMQRAEAEWP2886-01-18 13:17:00 Test Item Value Reference Range Interpretation Comments eGFR (test code = eGFR) 24 [facility] KlebergCghrenmYJGOHFNSF2977-73-62 13:17:00 Test Item Value Reference Range Interpretation Comments Ca Ion WB (test code = Ca Ion WB) 1.06 1.05-1.25 [facility] KlebergUsdybqeXTRZSAJQR4204-88-64 13:17:00 Test Item Value Reference Range Interpretation Comments Ca Ion at pH 7.4 WB (test code = Ca Ion 1.03 1.05-1.25 at pH 7.4 WB) [facility] KlebergWkjlrwoVZBAKOKPT0638-67-26 13:17:00 Test Item Value Reference Range Interpretation Comments Magnesium Lvl (test code = Magnesium 2.7 1.8-2.4 Lvl) [place] 647753-02-22 13:17:00 Test Item Value Reference Range Interpretation Comments Phosphorus (test code = Phosphorus) 3.9 2.5-4.5 [place] 391173-02-22 13:17:00 Test Item Value Reference Range Interpretation Comments Segs (test code = Segs) 54.4 45.0-75.0 [place] 391173-02-22 13:17:00 Test Item Value Reference Range Interpretation Comments Lymphocytes (test code = Lymphocytes) 29.3 20.0-40.0 [place] 391173-02-22 13:17:00 Test Item Value Reference Range Interpretation Comments Monocytes (test code = Monocytes) 10.5 2.0-12.0 [place] 391173-02-22 13:17:00 Test Item Value Reference Range Interpretation Comments Eosinophils (test code = 5.0 See_Comment [A utomated message] The Eosinophils) system which ge nerated this result tra nsmitted reference range : <=4.0. The reference r christiano was not used to int erpret this result as normal/abnormal . [place] 391173-02-22 13:17:00 Test Item Value Reference Range Interpretation Comments Basophils (test code = 0.8 See_Comment [Aut omated message] The Basophils) system which ge nerated this result tra nsmitted reference range : <=1.0. The reference r christiano was not used to int erpret this result as normal/abnormal . [facility]AllenJqbtqtvKUSWKOADUY0831-61-72 13:17:00 Test Item Value Reference Range Interpretation Comments Neutrophils # (test code = Neutrophils 4.1 1.5-8.1 #) [place] 391173-02-22 13:17:00 Test Item Value Reference Range Interpretation Comments Lymphocytes # (test code = Lymphocytes 2.2 1.0-5.5 #) [place] 391173-02-22 13:17:00 Test Item Value Reference Range Interpretation Comments Monocytes # (test code 0.8 See_Comment [Aut omated message] The = Monocytes #) system which generated this result tra nsmitted reference range : <=0.8. The reference r christiano was not used to int erpret this result as normal/abnormal . [facility] McAllenIssoknvBQSNPAHJKW2231-50-36 13:17:00 Test Item Value Reference Range Interpretation Comments Eosinophils # (test code 0.4 See_Comment [A utomated message] The = Eosinophils #) system whic h generated this result tra nsmitted reference range : <=0.5. The reference r christiano was not used to int erpret this result as normal/abnormal . [facility] McAllenTvlxgrrVBWKNCAHXM0688-99-03 13:17:00 Test Item Value Reference Range Interpretation Comments Basophils # (test code 0.1 See_Comment [Aut omated message] The = Basophils #) system which generated this result tra nsmitted reference range : <=0.2. The reference r christiano was not used to int erpret this result as normal/abnormal . [facility] McAllenDtyqcsiQMNITVIPKT9669-40-37 13:17:00 Test Item Value Reference Range Interpretation Comments WBC (test code = WBC) 7.5 3.7-10.4 [place] 391173-02-22 13:17:00 Test Item Value Reference Range Interpretation Comments RBC (test code = RBC) 3.30 4.20-5.40 [place] 391173-02-22 13:17:00 Test Item Value Reference Range Interpretation Comments Hgb (test code = Hgb) 9.9 12.0-16.0 [place] 391173-02-22 13:17:00 Test Item Value Reference Range Interpretation Comments Hct (test code = Hct) 30.3 36.0-48.0 [place] 391173-02-22 13:17:00 Test Item Value Reference Range Interpretation Comments MCV (test code = MCV) 91.8 80.0-98.0 [place] 391173-02-22 13:17:00 Test Item Value Reference Range Interpretation Comments MCH (test code = MCH) 30.0 pg 27.0-31.0 [place] 391173-02-22 13:17:00 Test Item Value Reference Range Interpretation Comments MCHC (test code = MCHC) 32.7 32.0-36.0 [place] 391173-02-22 13:17:00 Test Item Value Reference Range Interpretation Comments RDW (test code = RDW) 14.4 11.5-14.5 [place] 391173-02-22 13:17:00 Test Item Value Reference Range Interpretation Comments Platelet (test code = Platelet) 136 133-450 [place] 391173-02-22 13:17:00 Test Item Value Reference Range Interpretation Comments MPV (test code = MPV) 8.7 7.4-10.4 [place] 391173-02-22 13:17:00 Test Item Value Reference Range Interpretation Comments Segs (test code = Segs) 54.4 45.0-75.0 [place] 391173-02-22 13:17:00 Test Item Value Reference Range Interpretation Comments Lymphocytes (test code = Lymphocytes) 29.3 20.0-40.0 [place] [address]-02-22 13:17:00 Test Item Value Reference Range Interpretation Comments Monocytes (test code = Monocytes) 10.5 2.0-12.0 [place] 391173-02-22 13:17:00 Test Item Value Reference Range Interpretation Comments Eosinophils (test code = 5.0 See_Comment [A utomated message] The Eosinophils) system which ge nerated this result tra nsmitted reference range : <=4.0. The reference r christiano was not used to int erpret this result as normal/abnormal . [place] 391173-02-22 13:17:00 Test Item Value Reference Range Interpretation Comments Basophils (test code = 0.8 See_Comment [Aut omated message] The Basophils) system which ge nerated this result tra nsmitted reference range : <=1.0. The reference r christiano was not used to int erpret this result as normal/abnormal . [facility] McAllenShhchibYDZFDENMVE2910-91-67 13:17:00 Test Item Value Reference Range Interpretation Comments Neutrophils # (test code = Neutrophils 4.1 1.5-8.1 #) [place] 391173-02-22 13:17:00 Test Item Value Reference Range Interpretation Comments Lymphocytes # (test code = Lymphocytes 2.2 1.0-5.5 #) [place] [address]-02-22 13:17:00 Test Item Value Reference Range Interpretation Comments Monocytes # (test code 0.8 See_Comment [Aut omated message] The = Monocytes #) system which generated this result tra nsmitted reference range : <=0.8. The reference r christiano was not used to int erpret this result as normal/abnormal . [place] 391173-02-22 13:17:00 Test Item Value Reference Range Interpretation Comments Eosinophils # (test code 0.4 See_Comment [A utomated message] The = Eosinophils #) system whic h generated this result tra nsmitted reference range : <=0.5. The reference r christiano was not used to int erpret this result as normal/abnormal . [facility] McAllenZgzqgsjGIIYKLQLEP0824-80-41 13:17:00 Test Item Value Reference Range Interpretation Comments Basophils # (test code 0.1 See_Comment [Aut omated message] The = Basophils #) system which generated this result tra nsmitted reference range : <=0.2. The reference r christiano was not used to int erpret this result as normal/abnormal . [facility] McAllenUdaojqiSEADSYGIDY8869-86-72 13:17:00 Test Item Value Reference Range Interpretation Comments WBC (test code = WBC) 7.5 3.7-10.4 [place] 391173-02-22 13:17:00 Test Item Value Reference Range Interpretation Comments RBC (test code = RBC) 3.30 4.20-5.40 [place] 391173-02-22 13:17:00 Test Item Value Reference Range Interpretation Comments Hgb (test code = Hgb) 9.9 12.0-16.0 [place] 391173-02-22 13:17:00 Test Item Value Reference Range Interpretation Comments Hct (test code = Hct) 30.3 36.0-48.0 [place] [address]-02-22 13:17:00 Test Item Value Reference Range Interpretation Comments MCV (test code = MCV) 91.8 80.0-98.0 [place] [address]-02-22 13:17:00 Test Item Value Reference Range Interpretation Comments MCH (test code = MCH) 30.0 pg 27.0-31.0 [place] 391173-02-22 13:17:00 Test Item Value Reference Range Interpretation Comments MCHC (test code = MCHC) 32.7 32.0-36.0 [place] 391173-02-22 13:17:00 Test Item Value Reference Range Interpretation Comments RDW (test code = RDW) 14.4 11.5-14.5 [address]02-22 13:17:00 Test Item Value Reference Range Interpretation Comments Platelet (test code = Platelet) 136 133-450 [place] 391173-02-22 13:17:00 Test Item Value Reference Range Interpretation Comments MPV (test code = MPV) 8.7 7.4-10.4 [place] 976883-02-22 13:17:00 Test Item Value Reference Range Interpretation Comments Ca Ion WB (test code = Ca Ion WB) 1.06 1.05-1.25 [place] 976883-02-22 13:17:00 Test Item Value Reference Range Interpretation Comments Ca Ion at pH 7.4 WB (test code = Ca Ion 1.03 1.05-1.25 at pH 7.4 WB) [place] 468413-02-22 13:17:00 Test Item Value Reference Range Interpretation Comments Glucose Lvl (test code = Glucose Lvl) 65 70-99 [place] 468413-02-22 13:17:00 Test Item Value Reference Range Interpretation Comments BUN (test code = BUN) 39 7-22 [place] 468413-02-22 13:17:00 Test Item Value Reference Range Interpretation Comments Creatinine Lvl (test code = Creatinine 2.03 0.50-1.40 Lvl) [place] 468413-02-22 13:17:00 Test Item Value Reference Range Interpretation Comments Sodium Lvl (test code = Sodium Lvl) 139 135-145 [place] 468413-02-22 13:17:00 Test Item Value Reference Range Interpretation Comments Potassium Lvl (test code = Potassium 4.7 3.5-5.1 Lvl) [place] 468413-02-22 13:17:00 Test Item Value Reference Range Interpretation Comments Chloride Lvl (test code = Chloride Lvl) 107 95-109 [place] 468413-02-22 13:17:00 Test Item Value Reference Range Interpretation Comments CO2 (test code = CO2) 26 24-32 [place] 468413-02-22 13:17:00 Test Item Value Reference Range Interpretation Comments Calcium Lvl (test code = Calcium Lvl) 8.1 8.5-10.5 [place] 468413-02-22 13:17:00 Test Item Value Reference Range Interpretation Comments AGAP (test code = AGAP) 10.7 10.0-20.0 [place] 468413-02-22 13:17:00 Test Item Value Reference Range Interpretation Comments eGFR (test code = eGFR) 24 [place] 468413-02-22 13:17:00 Test Item Value Reference Range Interpretation Comments Magnesium Lvl (test code = Magnesium 2.7 1.8-2.4 Lvl) [place] 468413-02-22 13:17:00 Test Item Value Reference Range Interpretation Comments Phosphorus (test code = Phosphorus) 3.9 2.5-4.5 [place] 647753-02-22 13:17:00 Test Item Value Reference Range Interpretation Comments Glucose Lvl (test code = Glucose Lvl) 65 70-99 [place] 647753-02-22 13:17:00 Test Item Value Reference Range Interpretation Comments BUN (test code = BUN) 39 7-22 [place] 647753-02-22 13:17:00 Test Item Value Reference Range Interpretation Comments Creatinine Lvl (test code = Creatinine 2.03 0.50-1.40 Lvl) [facility]bergAmxjqfcWYBRCUHXX7169-42-17 13:17:00 Test Item Value Reference Range Interpretation Comments Sodium Lvl (test code = Sodium Lvl) 139 135-145 [place] 647753-02-22 13:17:00 Test Item Value Reference Range Interpretation Comments Potassium Lvl (test code = Potassium 4.7 3.5-5.1 Lvl) [place] 647753-02-22 13:17:00 Test Item Value Reference Range Interpretation Comments Chloride Lvl (test code = Chloride Lvl) 107 95-109 [place] 647753-02-22 13:17:00 Test Item Value Reference Range Interpretation Comments CO2 (test code = CO2) 26 24-32 [place] 647753-02-22 13:17:00 Test Item Value Reference Range Interpretation Comments Calcium Lvl (test code = Calcium Lvl) 8.1 8.5-10.5 [place] 647753-02-22 13:17:00 Test Item Value Reference Range Interpretation Comments AGAP (test code = AGAP) 10.7 10.0-20.0 [place] 647753-02-22 13:17:00 Test Item Value Reference Range Interpretation Comments eGFR (test code = eGFR) 24 [place] 647753-02-22 13:17:00 Test Item Value Reference Range Interpretation Comments Ca Ion WB (test code = Ca Ion WB) 1.06 1.05-1.25 [place] 647753-02-22 13:17:00 Test Item Value Reference Range Interpretation Comments Ca Ion at pH 7.4 WB (test code = Ca Ion 1.03 1.05-1.25 at pH 7.4 WB) [facility]bergPyljdfpOMJRCQWDD0349-86-99 13:17:00 Test Item Value Reference Range Interpretation Comments Magnesium Lvl (test code = Magnesium 2.7 1.8-2.4 Lvl) [facility]bergEumtqhoMFTGBARMG9118-51-18 13:17:00 Test Item Value Reference Range Interpretation Comments Phosphorus (test code = Phosphorus) 3.9 2.5-4.5 [place] 391173-02-22 13:17:00 Test Item Value Reference Range Interpretation Comments Segs (test code = Segs) 54.4 45.0-75.0 [place] 391173-02-22 13:17:00 Test Item Value Reference Range Interpretation Comments Lymphocytes (test code = Lymphocytes) 29.3 20.0-40.0 [place] 391173-02-22 13:17:00 Test Item Value Reference Range Interpretation Comments Monocytes (test code = Monocytes) 10.5 2.0-12.0 [place] 391173-02-22 13:17:00 Test Item Value Reference Range Interpretation Comments Eosinophils (test code = 5.0 See_Comment [A utomated message] The Eosinophils) system which ge nerated this result tra nsmitted reference range : <=4.0. The reference r christiano was not used to int erpret this result as normal/abnormal . [place] [address]-02-22 13:17:00 Test Item Value Reference Range Interpretation Comments Basophils (test code = 0.8 See_Comment [Aut omated message] The Basophils) system which ge nerated this result tra nsmitted reference range : <=1.0. The reference r christiano was not used to int erpret this result as normal/abnormal . [place] 391173-02-22 13:17:00 Test Item Value Reference Range Interpretation Comments Neutrophils # (test code = Neutrophils 4.1 1.5-8.1 #) [place] [place] [id number] 13:17:00 Test Item Value Reference Range Interpretation Comments Lymphocytes # (test code = Lymphocytes 2.2 1.0-5.5 #) [place] [address]-02-22 13:17:00 Test Item Value Reference Range Interpretation Comments Monocytes # (test code 0.8 See_Comment [Aut omated message] The = Monocytes #) system which generated this result tra nsmitted reference range : <=0.8. The reference r christiano was not used to int erpret this result as normal/abnormal . [place] [address]-02-22 13:17:00 Test Item Value Reference Range Interpretation Comments Eosinophils # (test code 0.4 See_Comment [A utomated message] The = Eosinophils #) system whic h generated this result tra nsmitted reference range : <=0.5. The reference r christiano was not used to int erpret this result as normal/abnormal . [place] 391173-02-22 13:17:00 Test Item Value Reference Range Interpretation Comments Basophils # (test code 0.1 See_Comment [Aut omated message] The = Basophils #) system which generated this result tra nsmitted reference range : <=0.2. The reference r christiano was not used to int erpret this result as normal/abnormal . [place] 391173-02-22 13:17:00 Test Item Value Reference Range Interpretation Comments WBC (test code = WBC) 7.5 3.7-10.4 [place] [address]-02-22 13:17:00 Test Item Value Reference Range Interpretation Comments RBC (test code = RBC) 3.30 4.20-5.40 [place] [address]-02-22 13:17:00 Test Item Value Reference Range Interpretation Comments Hgb (test code = Hgb) 9.9 12.0-16.0 [place] [address]-02-22 13:17:00 Test Item Value Reference Range Interpretation Comments Hct (test code = Hct) 30.3 36.0-48.0 [place] 391173-02-22 13:17:00 Test Item Value Reference Range Interpretation Comments MCV (test code = MCV) 91.8 80.0-98.0 [place] 391173-02-22 13:17:00 Test Item Value Reference Range Interpretation Comments MCH (test code = MCH) 30.0 pg 27.0-31.0 [place] 391173-02-22 13:17:00 Test Item Value Reference Range Interpretation Comments MCHC (test code = MCHC) 32.7 32.0-36.0 [place] 391173-02-22 13:17:00 Test Item Value Reference Range Interpretation Comments RDW (test code = RDW) 14.4 11.5-14.5 [place] 391173-02-22 13:17:00 Test Item Value Reference Range Interpretation Comments Platelet (test code = Platelet) 136 133-450 [facility]OwxpfgeVNLDKWGGWE3696-69-36 13:17:00 Test Item Value Reference Range Interpretation Comments MPV (test code = MPV) 8.7 7.4-10.4 [place] 391173-02-22 13:17:00 Test Item Value Reference Range Interpretation Comments Segs (test code = Segs) 54.4 45.0-75.0 [place] 391173-02-22 13:17:00 Test Item Value Reference Range Interpretation Comments Lymphocytes (test code = Lymphocytes) 29.3 20.0-40.0 [place] 391173-02-22 13:17:00 Test Item Value Reference Range Interpretation Comments Monocytes (test code = Monocytes) 10.5 2.0-12.0 [place] [address]-02-22 13:17:00 Test Item Value Reference Range Interpretation Comments Eosinophils (test code = 5.0 See_Comment [A utomated message] The Eosinophils) system which ge nerated this result tra nsmitted reference range : <=4.0. The reference r christiano was not used to int erpret this result as normal/abnormal . [place] 391173-02-22 13:17:00 Test Item Value Reference Range Interpretation Comments Basophils (test code = 0.8 See_Comment [Aut omated message] The Basophils) system which ge nerated this result tra nsmitted reference range : <=1.0. The reference r christiano was not used to int erpret this result as normal/abnormal . [place] 391173-02-22 13:17:00 Test Item Value Reference Range Interpretation Comments Neutrophils # (test code = Neutrophils 4.1 1.5-8.1 #) [place] 391173-02-22 13:17:00 Test Item Value Reference Range Interpretation Comments Lymphocytes # (test code = Lymphocytes 2.2 1.0-5.5 #) [place] [address]-02-22 13:17:00 Test Item Value Reference Range Interpretation Comments Monocytes # (test code 0.8 See_Comment [Aut omated message] The = Monocytes #) system which generated this result tra nsmitted reference range : <=0.8. The reference r christiano was not used to int erpret this result as normal/abnormal . [place] 391173-02-22 13:17:00 Test Item Value Reference Range Interpretation Comments Eosinophils # (test code 0.4 See_Comment [A utomated message] The = Eosinophils #) system whic h generated this result tra nsmitted reference range : <=0.5. The reference r christiano was not used to int erpret this result as normal/abnormal . [place] 391173-02-22 13:17:00 Test Item Value Reference Range Interpretation Comments Basophils # (test code 0.1 See_Comment [Aut omated message] The = Basophils #) system which generated this result tra nsmitted reference range : <=0.2. The reference r christiano was not used to int erpret this result as normal/abnormal . [facility]AllenKzfqbaxVDKFKTRMPV8304-96-55 13:17:00 Test Item Value Reference Range Interpretation Comments WBC (test code = WBC) 7.5 3.7-10.4 [place] 391173-02-22 13:17:00 Test Item Value Reference Range Interpretation Comments RBC (test code = RBC) 3.30 4.20-5.40 [place] [address]-02-22 13:17:00 Test Item Value Reference Range Interpretation Comments Hgb (test code = Hgb) 9.9 12.0-16.0 [place] [address]-02-22 13:17:00 Test Item Value Reference Range Interpretation Comments Hct (test code = Hct) 30.3 36.0-48.0 [facility]YjayitoXAMSZVBVSL7845-86-53 13:17:00 Test Item Value Reference Range Interpretation Comments MCV (test code = MCV) 91.8 80.0-98.0 [facility] McAllenNweeukiVROBPXYZRL5473-82-20 13:17:00 Test Item Value Reference Range Interpretation Comments MCH (test code = MCH) 30.0 pg 27.0-31.0 [facility] McAllenOgtjspzXKRKKRTGFT7908-46-63 13:17:00 Test Item Value Reference Range Interpretation Comments MCHC (test code = MCHC) 32.7 32.0-36.0 [facility] McAllenTlvpttlPZOPKRDYXG6507-07-03 13:17:00 Test Item Value Reference Range Interpretation Comments RDW (test code = RDW) 14.4 11.5-14.5 [facility] McAllenHtdpgrcZTDRMJSZIM4660-12-88 13:17:00 Test Item Value Reference Range Interpretation Comments Platelet (test code = Platelet) 136 133-450 [facility] McAllenXsoeyjwELEXZOJJEN8081-87-30 13:17:00 Test Item Value Reference Range Interpretation Comments MPV (test code = MPV) 8.7 7.4-10.4 [facility]wayannPARATHYROID [id number] 13:17:00 Test Item Value Reference Range Interpretation Comments Ca Ion WB (test code = Ca Ion WB) 1.06 1.05-1.25 [facility] [id number] 13:17:00 Test Item Value Reference Range Interpretation Comments Ca Ion at pH 7.4 WB (test code = Ca Ion 1.03 1.05-1.25 at pH 7.4 WB) [facility]bergMeicqxoZOXKTAEZC2659-79-65 15:39:00 Test Item Value Reference Range Interpretation Comments U Amph Scr (test code Negative *NA*(11/21/22 = U Amph Scr) 9:39 AM) [facility] KlebergBxncmsqECLAJLOUV7813-00-36 15:39:00 Test Item Value Reference Range Interpretation Comments U Analilia Scr (test code Positive *ABN*(11/21/22 = U Analilia Scr) 9:39 AM) [facility] KlebergUntratuXRTVUVFGQ2486-86-67 15:39:00 Test Item Value Reference Range Interpretation Comments U Benzodiaz Scr (test Negative *NA*(11/21/22 code = U Benzodiaz Scr) 9:39 AM) [facility] ZwmjrznDSUOKBQVT7363-52-24 15:39:00 Test Item Value Reference Range Interpretation Comments U Cocaine Scr (test Negative *NA*(11/21/22 code = U Cocaine Scr) 9:39 AM) [facility] MhlcpitVZYTUPBUU6324-57-66 15:39:00 Test Item Value Reference Range Interpretation Comments U Cannab Scr (test Negative *NA*(11/21/22 code = U Cannab Scr) 9:39 AM) [facility] YblcprrGWQSHZAZK3687-16-32 15:39:00 Test Item Value Reference Range Interpretation Comments U Opiate Scr (test Positive *ABN*(11/21/22 code = U Opiate Scr) 9:39 AM) [facility] CenterQhnehfnLOVJPRRWY0206-24-02 15:39:00 Test Item Value Reference Range Interpretation Comments U Phencyclidine Scr (test Negative code = U Phencyclidine *NA*(11/21/22 9:39 Scr) AM) [facility] CenterFaauckaIQDJCPPJJ6397-68-81 15:39:00 Test Item Value Reference Range Interpretation Comments UDS Note (test code = See Note (11/21/22 9:39 UDS Note) AM) [facility] CenterEzyeptbNJAWSHUBWH3295-49-50 15:39:00 Test Item Value Reference Range Interpretation Comments Coronavirus (COVID-19) Not Detected (11/21/22 JONATHAN (test code = 9:39 AM) Coronavirus (COVID-19) JONATHAN) [facility] [id number] 15:39:00 Test Item Value Reference Range Interpretation Comments UA Color (test code = Light Yellow UA Color) *NA*(11/21/22 9:39 AM) [facility] [id number] 15:39:00 Test Item Value Reference Range Interpretation Comments UA Turbidity (test code = Clear (11/21/22 9:39 UA Turbidity) AM) [facility] [id number] 15:39:00 Test Item Value Reference Range Interpretation Comments UA Spec Grav (test code = UA Spec 1.014 1 Grav) [facility] [id number] 15:39:00 Test Item Value Reference Range Interpretation Comments UA pH (test code = UA pH) 6.0 1 5.0-8.0 [facility] AND [id number] 15:39:00 Test Item Value Reference Range Interpretation Comments UA Protein (test code = UA Protein) 30 mg/dL [facility] AND [id number] 15:39:00 Test Item Value Reference Range Interpretation Comments UA Glucose (test code = UA Negative mg/dL Glucose) [facility] AND [id number] 15:39:00 Test Item Value Reference Range Interpretation Comments UA Ketones (test code = UA Negative mg/dL Ketones) [facility] AND [id number] 15:39:00 Test Item Value Reference Range Interpretation Comments UA Bili (test code = Negative *NA*(11/21/22 UA Bili) 9:39 AM) [facility] AND [id number] 15:39:00 Test Item Value Reference Range Interpretation Comments UA Blood (test code = Negative (11/21/22 9:39 UA Blood) AM) [facility] AND [id number] 15:39:00 Test Item Value Reference Range Interpretation Comments UA Urobilinogen (test code = UA no gt 0.1-1.0 Urobilinogen) [facility] AND [id number] 15:39:00 Test Item Value Reference Range Interpretation Comments UA Nitrite (test code Negative (11/21/22 9:39 = UA Nitrite) AM) [facility] AND [id number] 15:39:00 Test Item Value Reference Range Interpretation Comments UA Leuk Est (test Negative (11/21/22 9:39 code = UA Leuk Est) AM) [facility] AND [id number] 15:39:00 Test Item Value Reference Range Interpretation Comments UA Sq Epi (test code = UA Sq Occasional /LPF Epi) [facility] AND [id number] 15:39:00 Test Item Value Reference Range Interpretation Comments UA WBC (test code = no gt See_Comment [Automa sheba message] The UA WBC) system which ge nerated this result transmit sheba reference range : <=5. The reference range was not used to interpr et this result as edy l/abnormal. [facility] AND [id number] 15:39:00 Test Item Value Reference Range Interpretation Comments UA RBC (test code = no gt See_Comment [Automa sheba message] The UA RBC) system which ge nerated this result transmit sheba reference range : <=2. The reference range was not used to interpr et this result as edy l/abnormal. [facility] KlebergTpetxqwHVSPPHXXF8168-91-46 15:39:00 Test Item Value Reference Range Interpretation Comments U Amph Scr (test code Negative *NA*(11/21/22 = U Amph Scr) 9:39 AM) [facility] CenterQmncmxlMXBIJEGXQ8075-41-16 15:39:00 Test Item Value Reference Range Interpretation Comments U Analilia Scr (test code Positive *ABN*(11/21/22 = U Analilia Scr) 9:39 AM) [facility] KlebergHqnrhhnRBKYVMTTB6921-66-62 15:39:00 Test Item Value Reference Range Interpretation Comments U Benzodiaz Scr (test Negative *NA*(11/21/22 code = U Benzodiaz Scr) 9:39 AM) [facility] KlebergSgildgzWCSZIJWYD0037-45-95 15:39:00 Test Item Value Reference Range Interpretation Comments U Cocaine Scr (test Negative *NA*(11/21/22 code = U Cocaine Scr) 9:39 AM) [facility] ParkwayZwyxgcxDZNPTUPOR9704-18-54 15:39:00 Test Item Value Reference Range Interpretation Comments U Cannab Scr (test Negative *NA*(11/21/22 code = U Cannab Scr) 9:39 AM) [facility] CenterNhauvkwCCZAHTSLU4053-41-02 15:39:00 Test Item Value Reference Range Interpretation Comments U Opiate Scr (test Positive *ABN*(11/21/22 code = U Opiate Scr) 9:39 AM) [facility] CenterIrgwqfgIQQLLDXCX4684-14-32 15:39:00 Test Item Value Reference Range Interpretation Comments U Phencyclidine Scr (test Negative code = U Phencyclidine *NA*(11/21/22 9:39 Scr) AM) [facility] KlebergPykyxwmMHWAXSVFP5623-21-56 15:39:00 Test Item Value Reference Range Interpretation Comments UDS Note (test code = See Note (11/21/22 9:39 UDS Note) AM) [facility] CenterTtpycdmEEVGXDTAUO4354-26-29 15:39:00 Test Item Value Reference Range Interpretation Comments Coronavirus (COVID-19) Not Detected (11/21/22 JONATHAN (test code = 9:39 AM) Coronavirus (COVID-19) JONATHAN) [facility] AND [id number] 15:39:00 Test Item Value Reference Range Interpretation Comments UA Color (test code = Light Yellow UA Color) *NA*(11/21/22 9:39 AM) [facility] AND [id number] 15:39:00 Test Item Value Reference Range Interpretation Comments UA Turbidity (test code = Clear (11/21/22 9:39 UA Turbidity) AM) [facility] AND [id number] 15:39:00 Test Item Value Reference Range Interpretation Comments UA Spec Grav (test code = UA Spec 1.014 1 Grav) [facility] AND [id number] 15:39:00 Test Item Value Reference Range Interpretation Comments UA pH (test code = UA pH) 6.0 1 5.0-8.0 [facility] AND [id number] 15:39:00 Test Item Value Reference Range Interpretation Comments UA Protein (test code = UA Protein) 30 mg/dL [facility] AND [id number] 15:39:00 Test Item Value Reference Range Interpretation Comments UA Glucose (test code = UA Negative mg/dL Glucose) [facility] AND [id number] 15:39:00 Test Item Value Reference Range Interpretation Comments UA Ketones (test code = UA Negative mg/dL Ketones) [facility] AND [id number] 15:39:00 Test Item Value Reference Range Interpretation Comments UA Bili (test code = Negative *NA*(11/21/22 UA Bili) 9:39 AM) [facility] AND [id number] 15:39:00 Test Item Value Reference Range Interpretation Comments UA Blood (test code = Negative (11/21/22 9:39 UA Blood) AM) [facility] AND [id number] 15:39:00 Test Item Value Reference Range Interpretation Comments UA Urobilinogen (test code = UA no gt 0.1-1.0 Urobilinogen) [facility] AND [id number] 15:39:00 Test Item Value Reference Range Interpretation Comments UA Nitrite (test code Negative (11/21/22 9:39 = UA Nitrite) AM) [facility] AND [id number] 15:39:00 Test Item Value Reference Range Interpretation Comments UA Leuk Est (test Negative (11/21/22 9:39 code = UA Leuk Est) AM) [facility] [id number] 15:39:00 Test Item Value Reference Range Interpretation Comments UA Sq Epi (test code = UA Sq Occasional /LPF Epi) [facility] AND [id number] 15:39:00 Test Item Value Reference Range Interpretation Comments UA WBC (test code = no gt See_Comment [Automa sheba message] The UA WBC) system which ge nerated this result transmit sheba reference range : <=5. The reference range was not used to interpr et this result as edy l/abnormal. [facility] [id number] 15:39:00 Test Item Value Reference Range Interpretation Comments UA RBC (test code = no gt See_Comment [Automa sheba message] The UA RBC) system which ge nerated this result transmit sheba reference range : <=2. The reference range was not used to interpr et this result as edy l/abnormal. [facility] KlebergXfnrohhWPQEFUQSV9806-22-82 15:39:00 Test Item Value Reference Range Interpretation Comments U Amph Scr (test code Negative *NA*(11/21/22 = U Amph Scr) 9:39 AM) [facility] KlebergKurjnglEHBILHQSS1580-98-32 15:39:00 Test Item Value Reference Range Interpretation Comments U Analilia Scr (test code Positive *ABN*(11/21/22 = U Analilia Scr) 9:39 AM) [facility] KlebergDjiezhtVUTSKAXEE0686-50-56 15:39:00 Test Item Value Reference Range Interpretation Comments U Benzodiaz Scr (test Negative *NA*(11/21/22 code = U Benzodiaz Scr) 9:39 AM) [facility] [id number] 15:39:00 Test Item Value Reference Range Interpretation Comments U Cocaine Scr (test Negative *NA*(11/21/22 code = U Cocaine Scr) 9:39 AM) [facility] KlebergXdqtoeuMTSIOVWHO8683-20-14 15:39:00 Test Item Value Reference Range Interpretation Comments U Cannab Scr (test Negative *NA*(11/21/22 code = U Cannab Scr) 9:39 AM) [facility] [id number] 15:39:00 Test Item Value Reference Range Interpretation Comments U Opiate Scr (test Positive *ABN*(11/21/22 code = U Opiate Scr) 9:39 AM) [facility] NoztunpGLWYGDJNF2413-75-09 15:39:00 Test Item Value Reference Range Interpretation Comments U Phencyclidine Scr (test Negative code = U Phencyclidine *NA*(11/21/22 9:39 Scr) AM) [facility] [id number] 15:39:00 Test Item Value Reference Range Interpretation Comments UDS Note (test code = See Note (11/21/22 9:39 UDS Note) AM) [facility] [id number] 15:39:00 Test Item Value Reference Range Interpretation Comments U Amph Scr (test code Negative *NA*(11/21/22 = U Amph Scr) 9:39 AM) [facility] [id number] 15:39:00 Test Item Value Reference Range Interpretation Comments U Analilia Scr (test code Positive *ABN*(11/21/22 = U Analilia Scr) 9:39 AM) [facility] [id number] 15:39:00 Test Item Value Reference Range Interpretation Comments U Benzodiaz Scr (test Negative *NA*(11/21/22 code = U Benzodiaz Scr) 9:39 AM) [facility] [id number] 15:39:00 Test Item Value Reference Range Interpretation Comments U Cocaine Scr (test Negative *NA*(11/21/22 code = U Cocaine Scr) 9:39 AM) [facility] [id number] 15:39:00 Test Item Value Reference Range Interpretation Comments U Cannab Scr (test Negative *NA*(11/21/22 code = U Cannab Scr) 9:39 AM) [facility] [id number] 15:39:00 Test Item Value Reference Range Interpretation Comments U Opiate Scr (test Positive *ABN*(11/21/22 code = U Opiate Scr) 9:39 AM) [facility] [id number] 15:39:00 Test Item Value Reference Range Interpretation Comments U Phencyclidine Scr (test Negative code = U Phencyclidine *NA*(11/21/22 9:39 Scr) AM) [facility] [id number] 15:39:00 Test Item Value Reference Range Interpretation Comments UDS Note (test code = See Note (11/21/22 9:39 UDS Note) AM) [facility] CenterNctblabTFNQMIHJIU4551-57-67 15:39:00 Test Item Value Reference Range Interpretation Comments Coronavirus (COVID-19) Not Detected (11/21/22 JONATHAN (test code = 9:39 AM) Coronavirus (COVID-19) JONATHAN) [facility] CenterPtjfrbqPODTLUJBUZ8986-82-06 15:39:00 Test Item Value Reference Range Interpretation Comments Coronavirus (COVID-19) Not Detected (11/21/22 JONATHAN (test code = 9:39 AM) Coronavirus (COVID-19) JONATHAN) [facility] AND [id number] 15:39:00 Test Item Value Reference Range Interpretation Comments UA Color (test code = Light Yellow UA Color) *NA*(11/21/22 9:39 AM) [facility] AND [id number] 15:39:00 Test Item Value Reference Range Interpretation Comments UA Turbidity (test code = Clear (11/21/22 9:39 UA Turbidity) AM) [facility] AND [id number] 15:39:00 Test Item Value Reference Range Interpretation Comments UA Spec Grav (test code = UA Spec 1.014 1 Grav) [facility] AND [id number] 15:39:00 Test Item Value Reference Range Interpretation Comments UA pH (test code = UA pH) 6.0 1 5.0-8.0 [facility] AND [id number] 15:39:00 Test Item Value Reference Range Interpretation Comments UA Protein (test code = UA Protein) 30 mg/dL [facility] AND [id number] 15:39:00 Test Item Value Reference Range Interpretation Comments UA Glucose (test code = UA Negative mg/dL Glucose) [facility] AND [id number] 15:39:00 Test Item Value Reference Range Interpretation Comments UA Ketones (test code = UA Negative mg/dL Ketones) [facility] AND [id number] 15:39:00 Test Item Value Reference Range Interpretation Comments UA Bili (test code = Negative *NA*(11/21/22 UA Bili) 9:39 AM) [facility] AND [id number] 15:39:00 Test Item Value Reference Range Interpretation Comments UA Blood (test code = Negative (11/21/22 9:39 UA Blood) AM) [facility] AND [id number] 15:39:00 Test Item Value Reference Range Interpretation Comments UA Urobilinogen (test code = UA no gt 0.1-1.0 Urobilinogen) [facility] AND [id number] 15:39:00 Test Item Value Reference Range Interpretation Comments UA Nitrite (test code Negative (11/21/22 9:39 = UA Nitrite) AM) [facility] AND [id number] 15:39:00 Test Item Value Reference Range Interpretation Comments UA Leuk Est (test Negative (11/21/22 9:39 code = UA Leuk Est) AM) [facility] AND [id number] 15:39:00 Test Item Value Reference Range Interpretation Comments UA Sq Epi (test code = UA Sq Occasional /LPF Epi) [facility] AND [id number] 15:39:00 Test Item Value Reference Range Interpretation Comments UA WBC (test code = no gt See_Comment [Automa sheba message] The UA WBC) system which ge nerated this result transmit sheba reference range : <=5. The reference range was not used to interpr et this result as edy l/abnormal. [facility] AND [id number] 15:39:00 Test Item Value Reference Range Interpretation Comments UA RBC (test code = no gt See_Comment [Automa sheba message] The UA RBC) system which ge nerated this result transmit sheba reference range : <=2. The reference range was not used to interpr et this result as edy l/abnormal. [facility] AND [id number] 15:39:00 Test Item Value Reference Range Interpretation Comments UA Color (test code = Light Yellow UA Color) *NA*(11/21/22 9:39 AM) [facility] AND [id number] 15:39:00 Test Item Value Reference Range Interpretation Comments UA Turbidity (test code = Clear (11/21/22 9:39 UA Turbidity) AM) [facility] AND [id number] 15:39:00 Test Item Value Reference Range Interpretation Comments UA Spec Grav (test code = UA Spec 1.014 1 Grav) [facility] AND [id number] 15:39:00 Test Item Value Reference Range Interpretation Comments UA pH (test code = UA pH) 6.0 1 5.0-8.0 [facility] AND [id number] 15:39:00 Test Item Value Reference Range Interpretation Comments UA Protein (test code = UA Protein) 30 mg/dL [facility] AND [id number] 15:39:00 Test Item Value Reference Range Interpretation Comments UA Glucose (test code = UA Negative mg/dL Glucose) [facility] AND [id number] 15:39:00 Test Item Value Reference Range Interpretation Comments UA Ketones (test code = UA Negative mg/dL Ketones) [facility] AND [id number] 15:39:00 Test Item Value Reference Range Interpretation Comments UA Bili (test code = Negative *NA*(11/21/22 UA Bili) 9:39 AM) [facility] AND [id number] 15:39:00 Test Item Value Reference Range Interpretation Comments UA Blood (test code = Negative (11/21/22 9:39 UA Blood) AM) [facility] AND [id number] 15:39:00 Test Item Value Reference Range Interpretation Comments UA Urobilinogen (test code = UA no gt 0.1-1.0 Urobilinogen) [facility] AND [id number] 15:39:00 Test Item Value Reference Range Interpretation Comments UA Nitrite (test code Negative (11/21/22 9:39 = UA Nitrite) AM) [facility] AND [id number] 15:39:00 Test Item Value Reference Range Interpretation Comments UA Leuk Est (test Negative (11/21/22 9:39 code = UA Leuk Est) AM) [facility] AND [id number] 15:39:00 Test Item Value Reference Range Interpretation Comments UA Sq Epi (test code = UA Sq Occasional /LPF Epi) [facility] AND [id number] 15:39:00 Test Item Value Reference Range Interpretation Comments UA WBC (test code = no gt See_Comment [Automa sheba message] The UA WBC) system which ge nerated this result transmit sheba reference range : <=5. The reference range was not used to interpr et this result as edy l/abnormal. [facility] AND [id number] 15:39:00 Test Item Value Reference Range Interpretation Comments UA RBC (test code = no gt See_Comment [Automa sheba message] The UA RBC) system which ge nerated this result transmit sheba reference range : <=2. The reference range was not used to interpr et this result as edy l/abnormal. [id number] 15:39:00 Test Item Value Reference Range Interpretation Comments U Amph Scr (test code Negative *NA*(11/21/22 = U Amph Scr) 9:39 AM) [id number] 15:39:00 Test Item Value Reference Range Interpretation Comments U Analilia Scr (test code Positive *ABN*(11/21/22 = U Analilia Scr) 9:39 AM) [facility]wayDqmsvqfOPBCHNSXJ5913-32-08 15:39:00 Test Item Value Reference Range Interpretation Comments U Benzodiaz Scr (test Negative *NA*(11/21/22 code = U Benzodiaz Scr) 9:39 AM) [id number] 15:39:00 Test Item Value Reference Range Interpretation Comments U Cocaine Scr (test Negative *NA*(11/21/22 code = U Cocaine Scr) 9:39 AM) [facility] [id number] 15:39:00 Test Item Value Reference Range Interpretation Comments U Cannab Scr (test Negative *NA*(11/21/22 code = U Cannab Scr) 9:39 AM) [facility] [id number] 15:39:00 Test Item Value Reference Range Interpretation Comments U Opiate Scr (test Positive *ABN*(11/21/22 code = U Opiate Scr) 9:39 AM) [facility] Park[id number] 15:39:00 Test Item Value Reference Range Interpretation Comments U Phencyclidine Scr (test Negative code = U Phencyclidine *NA*(11/21/22 9:39 Scr) AM) [facility]wayEuxagmoFVFWOWITM8494-11-23 15:39:00 Test Item Value Reference Range Interpretation Comments UDS Note (test code = See Note (11/21/22 9:39 UDS Note) AM) [facility] [id number] 15:39:00 Test Item Value Reference Range Interpretation Comments U Amph Scr (test code Negative *NA*(11/21/22 = U Amph Scr) 9:39 AM) [facility] [id number] 15:39:00 Test Item Value Reference Range Interpretation Comments U Analilia Scr (test code Positive *ABN*(11/21/22 = U Analilia Scr) 9:39 AM) [facility]DR[facility] [id number] 15:39:00 Test Item Value Reference Range Interpretation Comments U Benzodiaz Scr (test Negative *NA*(11/21/22 code = U Benzodiaz Scr) 9:39 AM) [facility]annDR[facility] [id number] 15:39:00 Test Item Value Reference Range Interpretation Comments U Cocaine Scr (test Negative *NA*(11/21/22 code = U Cocaine Scr) 9:39 AM) [facility]annDR[facility] [id number] 15:39:00 Test Item Value Reference Range Interpretation Comments U Cannab Scr (test Negative *NA*(11/21/22 code = U Cannab Scr) 9:39 AM) [facility]annDR[facility] [id number] 15:39:00 Test Item Value Reference Range Interpretation Comments U Opiate Scr (test Positive *ABN*(11/21/22 code = U Opiate Scr) 9:39 AM) [facility]annDR[facility] [id number] 15:39:00 Test Item Value Reference Range Interpretation Comments U Phencyclidine Scr (test Negative code = U Phencyclidine *NA*(11/21/22 9:39 Scr) AM) [facility]annDR[facility] [id number] 15:39:00 Test Item Value Reference Range Interpretation Comments UDS Note (test code = See Note (11/21/22 9:39 UDS Note) AM) [id number] 15:39:00 Test Item Value Reference Range Interpretation Comments Coronavirus (COVID-19) Not Detected (11/21/22 JONATHAN (test code = 9:39 AM) Coronavirus (COVID-19) JONATHAN) [facility] [id number] 15:39:00 Test Item Value Reference Range Interpretation Comments Coronavirus (COVID-19) Not Detected (11/21/22 JONATHAN (test code = 9:39 AM) Coronavirus (COVID-19) JONATHAN) [facility] AND [id number] 15:39:00 Test Item Value Reference Range Interpretation Comments UA Color (test code = Light Yellow UA Color) *NA*(11/21/22 9:39 AM) [facility] AND [id number] 15:39:00 Test Item Value Reference Range Interpretation Comments UA Turbidity (test code = Clear (11/21/22 9:39 UA Turbidity) AM) [facility] AND [id number] 15:39:00 Test Item Value Reference Range Interpretation Comments UA Spec Grav (test code = UA Spec 1.014 1 Grav) [facility] AND [id number] 15:39:00 Test Item Value Reference Range Interpretation Comments UA pH (test code = UA pH) 6.0 1 5.0-8.0 [facility] AND [id number] 15:39:00 Test Item Value Reference Range Interpretation Comments UA Protein (test code = UA Protein) 30 mg/dL [facility] AND [id number] 15:39:00 Test Item Value Reference Range Interpretation Comments UA Glucose (test code = UA Negative mg/dL Glucose) [facility] AND [id number] 15:39:00 Test Item Value Reference Range Interpretation Comments UA Ketones (test code = UA Negative mg/dL Ketones) [facility] AND [id number] 15:39:00 Test Item Value Reference Range Interpretation Comments UA Bili (test code = Negative *NA*(11/21/22 UA Bili) 9:39 AM) [facility] AND [id number] 15:39:00 Test Item Value Reference Range Interpretation Comments UA Blood (test code = Negative (11/21/22 9:39 UA Blood) AM) [facility] AND [id number] 15:39:00 Test Item Value Reference Range Interpretation Comments UA Urobilinogen (test code = UA no gt 0.1-1.0 Urobilinogen) [facility] AND [id number] 15:39:00 Test Item Value Reference Range Interpretation Comments UA Nitrite (test code Negative (11/21/22 9:39 = UA Nitrite) AM) [facility] AND [id number] 15:39:00 Test Item Value Reference Range Interpretation Comments UA Leuk Est (test Negative (11/21/22 9:39 code = UA Leuk Est) AM) [facility] AND [id number] 15:39:00 Test Item Value Reference Range Interpretation Comments UA Sq Epi (test code = UA Sq Occasional /LPF Epi) [facility] AND [id number] 15:39:00 Test Item Value Reference Range Interpretation Comments UA WBC (test code = no gt See_Comment [Automa sheba message] The UA WBC) system which ge nerated this result transmit sheba reference range : <=5. The reference range was not used to interpr et this result as edy l/abnormal. [facility] AND [id number] 15:39:00 Test Item Value Reference Range Interpretation Comments UA RBC (test code = no gt See_Comment [Automa sheba message] The UA RBC) system which ge nerated this result transmit sheba reference range : <=2. The reference range was not used to interpr et this result as edy l/abnormal. [facility] AND [id number] 15:39:00 Test Item Value Reference Range Interpretation Comments UA Color (test code = Light Yellow UA Color) *NA*(11/21/22 9:39 AM) [facility] AND [id number] 15:39:00 Test Item Value Reference Range Interpretation Comments UA Turbidity (test code = Clear (11/21/22 9:39 UA Turbidity) AM) [facility] AND [id number] 15:39:00 Test Item Value Reference Range Interpretation Comments UA Spec Grav (test code = UA Spec 1.014 1 Grav) [facility] AND [id number] 15:39:00 Test Item Value Reference Range Interpretation Comments UA pH (test code = UA pH) 6.0 1 5.0-8.0 [facility] AND [id number] 15:39:00 Test Item Value Reference Range Interpretation Comments UA Protein (test code = UA Protein) 30 mg/dL [facility] AND [id number] 15:39:00 Test Item Value Reference Range Interpretation Comments UA Glucose (test code = UA Negative mg/dL Glucose) [facility] AND [id number] 15:39:00 Test Item Value Reference Range Interpretation Comments UA Ketones (test code = UA Negative mg/dL Ketones) [facility] AND [id number] 15:39:00 Test Item Value Reference Range Interpretation Comments UA Bili (test code = Negative *NA*(11/21/22 UA Bili) 9:39 AM) [facility] [id number] 15:39:00 Test Item Value Reference Range Interpretation Comments UA Blood (test code = Negative (11/21/22 9:39 UA Blood) AM) [facility] AND [id number] 15:39:00 Test Item Value Reference Range Interpretation Comments UA Urobilinogen (test code = UA no gt 0.1-1.0 Urobilinogen) [facility] AND [id number] 15:39:00 Test Item Value Reference Range Interpretation Comments UA Nitrite (test code Negative (11/21/22 9:39 = UA Nitrite) AM) [facility] AND [id number] 15:39:00 Test Item Value Reference Range Interpretation Comments UA Leuk Est (test Negative (11/21/22 9:39 code = UA Leuk Est) AM) [facility] AND [id number] 15:39:00 Test Item Value Reference Range Interpretation Comments UA Sq Epi (test code = UA Sq Occasional /LPF Epi) [facility] AND [id number] 15:39:00 Test Item Value Reference Range Interpretation Comments UA WBC (test code = no gt See_Comment [Automa sheba message] The UA WBC) system which ge nerated this result transmit sheba reference range : <=5. The reference range was not used to interpr et this result as edy l/abnormal. [facility]ann[facility] AND [id number] 15:39:00 Test Item Value Reference Range Interpretation Comments UA RBC (test code = no gt See_Comment [Automa sheba message] The UA RBC) system which ge nerated this result transmit sheba reference range : <=2. The reference range was not used to interpr et this result as edy l/abnormal. [facility] [id number] 15:39:00 Test Item Value Reference Range Interpretation Comments U Amph Scr (test code Negative *NA*(11/21/22 = U Amph Scr) 9:39 AM) [facility] [id number] 15:39:00 Test Item Value Reference Range Interpretation Comments U Analilia Scr (test code Positive *ABN*(11/21/22 = U Analilia Scr) 9:39 AM) [facility] [id number] 15:39:00 Test Item Value Reference Range Interpretation Comments U Benzodiaz Scr (test Negative *NA*(11/21/22 code = U Benzodiaz Scr) 9:39 AM) [facility] [id number] 15:39:00 Test Item Value Reference Range Interpretation Comments U Cocaine Scr (test Negative *NA*(11/21/22 code = U Cocaine Scr) 9:39 AM) [facility] [id number] 15:39:00 Test Item Value Reference Range Interpretation Comments U Cannab Scr (test Negative *NA*(11/21/22 code = U Cannab Scr) 9:39 AM) [facility] [id number] 15:39:00 Test Item Value Reference Range Interpretation Comments U Opiate Scr (test Positive *ABN*(11/21/22 code = U Opiate Scr) 9:39 AM) [facility] [id number] 15:39:00 Test Item Value Reference Range Interpretation Comments U Phencyclidine Scr (test Negative code = U Phencyclidine *NA*(11/21/22 9:39 Scr) AM) [id number] 15:39:00 Test Item Value Reference Range Interpretation Comments UDS Note (test code = See Note (11/21/22 9:39 UDS Note) AM) [facility]annDR[facility] [id number] 15:39:00 Test Item Value Reference Range Interpretation Comments U Amph Scr (test code Negative *NA*(11/21/22 = U Amph Scr) 9:39 AM) [facility]annDR[facility] [id number] 15:39:00 Test Item Value Reference Range Interpretation Comments U Analilia Scr (test code Positive *ABN*(11/21/22 = U Analilia Scr) 9:39 AM) [facility]annDR[facility] [id number] 15:39:00 Test Item Value Reference Range Interpretation Comments U Benzodiaz Scr (test Negative *NA*(11/21/22 code = U Benzodiaz Scr) 9:39 AM) [facility] [id number] 15:39:00 Test Item Value Reference Range Interpretation Comments U Cocaine Scr (test Negative *NA*(11/21/22 code = U Cocaine Scr) 9:39 AM) [facility]DR[facility] [id number] 15:39:00 Test Item Value Reference Range Interpretation Comments U Cannab Scr (test Negative *NA*(11/21/22 code = U Cannab Scr) 9:39 AM) [facility]DR[facility] [id number] 15:39:00 Test Item Value Reference Range Interpretation Comments U Opiate Scr (test Positive *ABN*(11/21/22 code = U Opiate Scr) 9:39 AM) [facility] [id number] 15:39:00 Test Item Value Reference Range Interpretation Comments U Phencyclidine Scr (test Negative code = U Phencyclidine *NA*(11/21/22 9:39 Scr) AM) [facility] [id number] 15:39:00 Test Item Value Reference Range Interpretation Comments UDS Note (test code = See Note (11/21/22 9:39 UDS Note) AM) [facility] [id number] 15:39:00 Test Item Value Reference Range Interpretation Comments Coronavirus (COVID-19) Not Detected (11/21/22 JONATHAN (test code = 9:39 AM) Coronavirus (COVID-19) JONATHAN) [facility] [id number] 15:39:00 Test Item Value Reference Range Interpretation Comments Coronavirus (COVID-19) Not Detected (11/21/22 JONATHAN (test code = 9:39 AM) Coronavirus (COVID-19) JONATHAN) [facility] AND [id number] 15:39:00 Test Item Value Reference Range Interpretation Comments UA Color (test code = Light Yellow UA Color) *NA*(11/21/22 9:39 AM) [facility] [id number] 15:39:00 Test Item Value Reference Range Interpretation Comments UA Turbidity (test code = Clear (11/21/22 9:39 UA Turbidity) AM) [facility] [id number] 15:39:00 Test Item Value Reference Range Interpretation Comments UA Spec Grav (test code = UA Spec 1.014 1 Grav) [facility] AND [id number] 15:39:00 Test Item Value Reference Range Interpretation Comments UA pH (test code = UA pH) 6.0 1 5.0-8.0 [facility] AND [id number] 15:39:00 Test Item Value Reference Range Interpretation Comments UA Protein (test code = UA Protein) 30 mg/dL [facility] AND [id number] 15:39:00 Test Item Value Reference Range Interpretation Comments UA Glucose (test code = UA Negative mg/dL Glucose) [facility] AND [id number] 15:39:00 Test Item Value Reference Range Interpretation Comments UA Ketones (test code = UA Negative mg/dL Ketones) [facility] AND [id number] 15:39:00 Test Item Value Reference Range Interpretation Comments UA Bili (test code = Negative *NA*(11/21/22 UA Bili) 9:39 AM) [facility] AND [id number] 15:39:00 Test Item Value Reference Range Interpretation Comments UA Blood (test code = Negative (11/21/22 9:39 UA Blood) AM) [facility] AND [id number] 15:39:00 Test Item Value Reference Range Interpretation Comments UA Urobilinogen (test code = UA no gt 0.1-1.0 Urobilinogen) [facility] AND [id number] 15:39:00 Test Item Value Reference Range Interpretation Comments UA Nitrite (test code Negative (11/21/22 9:39 = UA Nitrite) AM) [facility] AND [id number] 15:39:00 Test Item Value Reference Range Interpretation Comments UA Leuk Est (test Negative (11/21/22 9:39 code = UA Leuk Est) AM) [facility] AND [id number] 15:39:00 Test Item Value Reference Range Interpretation Comments UA Sq Epi (test code = UA Sq Occasional /LPF Epi) [facility] AND [id number] 15:39:00 Test Item Value Reference Range Interpretation Comments UA WBC (test code = no gt See_Comment [Automa sheba message] The UA WBC) system which ge nerated this result transmit sheba reference range : <=5. The reference range was not used to interpr et this result as edy l/abnormal. [facility] AND [id number] 15:39:00 Test Item Value Reference Range Interpretation Comments UA RBC (test code = no gt See_Comment [Automa sheba message] The UA RBC) system which ge nerated this result transmit sheba reference range : <=2. The reference range was not used to interpr et this result as edy l/abnormal. [facility] AND [id number] 15:39:00 Test Item Value Reference Range Interpretation Comments UA Color (test code = Light Yellow UA Color) *NA*(11/21/22 9:39 AM) [facility] AND [id number] 15:39:00 Test Item Value Reference Range Interpretation Comments UA Turbidity (test code = Clear (11/21/22 9:39 UA Turbidity) AM) [facility] AND [id number] 15:39:00 Test Item Value Reference Range Interpretation Comments UA Spec Grav (test code = UA Spec 1.014 1 Grav) [facility] AND [id number] 15:39:00 Test Item Value Reference Range Interpretation Comments UA pH (test code = UA pH) 6.0 1 5.0-8.0 [facility] AND [id number] 15:39:00 Test Item Value Reference Range Interpretation Comments UA Protein (test code = UA Protein) 30 mg/dL [facility] AND [id number] 15:39:00 Test Item Value Reference Range Interpretation Comments UA Glucose (test code = UA Negative mg/dL Glucose) [facility] AND [id number] 15:39:00 Test Item Value Reference Range Interpretation Comments UA Ketones (test code = UA Negative mg/dL Ketones) [facility] AND [id number] 15:39:00 Test Item Value Reference Range Interpretation Comments UA Bili (test code = Negative *NA*(11/21/22 UA Bili) 9:39 AM) [facility] AND [id number] 15:39:00 Test Item Value Reference Range Interpretation Comments UA Blood (test code = Negative (11/21/22 9:39 UA Blood) AM) [facility] AND [id number] 15:39:00 Test Item Value Reference Range Interpretation Comments UA Urobilinogen (test code = UA no gt 0.1-1.0 Urobilinogen) [facility] AND [id number] 15:39:00 Test Item Value Reference Range Interpretation Comments UA Nitrite (test code Negative (11/21/22 9:39 = UA Nitrite) AM) [facility] AND [id number] 15:39:00 Test Item Value Reference Range Interpretation Comments UA Leuk Est (test Negative (11/21/22 9:39 code = UA Leuk Est) AM) [facility] AND [id number] 15:39:00 Test Item Value Reference Range Interpretation Comments UA Sq Epi (test code = UA Sq Occasional /LPF Epi) [facility] AND [id number] 15:39:00 Test Item Value Reference Range Interpretation Comments UA WBC (test code = no gt See_Comment [Automa sheba message] The UA WBC) system which ge nerated this result transmit sheba reference range : <=5. The reference range was not used to interpr et this result as edy l/abnormal. [facility] AND [id number] 15:39:00 Test Item Value Reference Range Interpretation Comments UA RBC (test code = no gt See_Comment [Automa sheba message] The UA RBC) system which ge nerated this result transmit sheba reference range : <=2. The reference range was not used to interpr et this result as edy l/abnormal. [facility]bergAcudmaoXXJHVWSES2071-02-07 15:39:00 Test Item Value Reference Range Interpretation Comments U Amph Scr (test code Negative *NA*(11/21/22 = U Amph Scr) 9:39 AM) [facility] [id number] 15:39:00 Test Item Value Reference Range Interpretation Comments U Analilia Scr (test code Positive *ABN*(11/21/22 = U Analilia Scr) 9:39 AM) [facility] [id number] 15:39:00 Test Item Value Reference Range Interpretation Comments U Benzodiaz Scr (test Negative *NA*(11/21/22 code = U Benzodiaz Scr) 9:39 AM) [facility] [id number] 15:39:00 Test Item Value Reference Range Interpretation Comments U Cocaine Scr (test Negative *NA*(11/21/22 code = U Cocaine Scr) 9:39 AM) [facility] [id number] 15:39:00 Test Item Value Reference Range Interpretation Comments U Cannab Scr (test Negative *NA*(11/21/22 code = U Cannab Scr) 9:39 AM) [facility] [id number] 15:39:00 Test Item Value Reference Range Interpretation Comments U Opiate Scr (test Positive *ABN*(11/21/22 code = U Opiate Scr) 9:39 AM) [id number] 15:39:00 Test Item Value Reference Range Interpretation Comments U Phencyclidine Scr (test Negative code = U Phencyclidine *NA*(11/21/22 9:39 Scr) AM) [facility] [id number] 15:39:00 Test Item Value Reference Range Interpretation Comments UDS Note (test code = See Note (11/21/22 9:39 UDS Note) AM) [facility]annDR[facility] [id number] 15:39:00 Test Item Value Reference Range Interpretation Comments U Amph Scr (test code Negative *NA*(11/21/22 = U Amph Scr) 9:39 AM) [facility]annDR[facility] [id number] 15:39:00 Test Item Value Reference Range Interpretation Comments U Analilia Scr (test code Positive *ABN*(11/21/22 = U Analilia Scr) 9:39 AM) [facility]annDR[facility] [id number] 15:39:00 Test Item Value Reference Range Interpretation Comments U Benzodiaz Scr (test Negative *NA*(11/21/22 code = U Benzodiaz Scr) 9:39 AM) [facility]annDR[facility] [id number] 15:39:00 Test Item Value Reference Range Interpretation Comments U Cocaine Scr (test Negative *NA*(11/21/22 code = U Cocaine Scr) 9:39 AM) [facility]DR[facility] [id number] 15:39:00 Test Item Value Reference Range Interpretation Comments U Cannab Scr (test Negative *NA*(11/21/22 code = U Cannab Scr) 9:39 AM) [facility]DR[facility] [id number] 15:39:00 Test Item Value Reference Range Interpretation Comments U Opiate Scr (test Positive *ABN*(11/21/22 code = U Opiate Scr) 9:39 AM) [facility] [id number] 15:39:00 Test Item Value Reference Range Interpretation Comments U Phencyclidine Scr (test Negative code = U Phencyclidine *NA*(11/21/22 9:39 Scr) AM) [facility] [id number] 15:39:00 Test Item Value Reference Range Interpretation Comments UDS Note (test code = See Note (11/21/22 9:39 UDS Note) AM) [facility] [id number] 15:39:00 Test Item Value Reference Range Interpretation Comments Coronavirus (COVID-19) Not Detected (11/21/22 JONATHAN (test code = 9:39 AM) Coronavirus (COVID-19) JONATHAN) [facility] [id number] 15:39:00 Test Item Value Reference Range Interpretation Comments Coronavirus (COVID-19) Not Detected (11/21/22 JONATHAN (test code = 9:39 AM) Coronavirus (COVID-19) JONATHAN) [facility] [id number] 15:39:00 Test Item Value Reference Range Interpretation Comments UA Color (test code = Light Yellow UA Color) *NA*(11/21/22 9:39 AM) [facility] [id number] 15:39:00 Test Item Value Reference Range Interpretation Comments UA Turbidity (test code = Clear (11/21/22 9:39 UA Turbidity) AM) [facility] [id number] 15:39:00 Test Item Value Reference Range Interpretation Comments UA Spec Grav (test code = UA Spec 1.014 1 Grav) [facility] [id number] 15:39:00 Test Item Value Reference Range Interpretation Comments UA pH (test code = UA pH) 6.0 1 5.0-8.0 [facility] [id number] 15:39:00 Test Item Value Reference Range Interpretation Comments UA Protein (test code = UA Protein) 30 mg/dL [facility] [id number] 15:39:00 Test Item Value Reference Range Interpretation Comments UA Glucose (test code = UA Negative mg/dL Glucose) [facility] [id number] 15:39:00 Test Item Value Reference Range Interpretation Comments UA Ketones (test code = UA Negative mg/dL Ketones) [facility] [id number] 15:39:00 Test Item Value Reference Range Interpretation Comments UA Bili (test code = Negative *NA*(11/21/22 UA Bili) 9:39 AM) [facility] AND [id number] 15:39:00 Test Item Value Reference Range Interpretation Comments UA Blood (test code = Negative (11/21/22 9:39 UA Blood) AM) [facility] AND [id number] 15:39:00 Test Item Value Reference Range Interpretation Comments UA Urobilinogen (test code = UA no gt 0.1-1.0 Urobilinogen) [facility] AND [id number] 15:39:00 Test Item Value Reference Range Interpretation Comments UA Nitrite (test code Negative (11/21/22 9:39 = UA Nitrite) AM) [facility] AND [id number] 15:39:00 Test Item Value Reference Range Interpretation Comments UA Leuk Est (test Negative (11/21/22 9:39 code = UA Leuk Est) AM) [facility] AND [id number] 15:39:00 Test Item Value Reference Range Interpretation Comments UA Sq Epi (test code = UA Sq Occasional /LPF Epi) [facility] AND [id number] 15:39:00 Test Item Value Reference Range Interpretation Comments UA WBC (test code = no gt See_Comment [Automa sheba message] The UA WBC) system which ge nerated this result transmit sheba reference range : <=5. The reference range was not used to interpr et this result as edy l/abnormal. [facility] AND [id number] 15:39:00 Test Item Value Reference Range Interpretation Comments UA RBC (test code = no gt See_Comment [Automa sheba message] The UA RBC) system which ge nerated this result transmit sheba reference range : <=2. The reference range was not used to interpr et this result as edy l/abnormal. [facility] AND [id number] 15:39:00 Test Item Value Reference Range Interpretation Comments UA Color (test code = Light Yellow UA Color) *NA*(11/21/22 9:39 AM) [facility] AND [id number] 15:39:00 Test Item Value Reference Range Interpretation Comments UA Turbidity (test code = Clear (11/21/22 9:39 UA Turbidity) AM) [facility] AND [id number] 15:39:00 Test Item Value Reference Range Interpretation Comments UA Spec Grav (test code = UA Spec 1.014 1 Grav) [facility] AND [id number] 15:39:00 Test Item Value Reference Range Interpretation Comments UA pH (test code = UA pH) 6.0 1 5.0-8.0 [facility] AND [id number] 15:39:00 Test Item Value Reference Range Interpretation Comments UA Protein (test code = UA Protein) 30 mg/dL [facility] AND [id number] 15:39:00 Test Item Value Reference Range Interpretation Comments UA Glucose (test code = UA Negative mg/dL Glucose) [facility] AND [id number] 15:39:00 Test Item Value Reference Range Interpretation Comments UA Ketones (test code = UA Negative mg/dL Ketones) [facility] AND [id number] 15:39:00 Test Item Value Reference Range Interpretation Comments UA Bili (test code = Negative *NA*(11/21/22 UA Bili) 9:39 AM) [facility] AND [id number] 15:39:00 Test Item Value Reference Range Interpretation Comments UA Blood (test code = Negative (11/21/22 9:39 UA Blood) AM) [facility] AND [id number] 15:39:00 Test Item Value Reference Range Interpretation Comments UA Urobilinogen (test code = UA no gt 0.1-1.0 Urobilinogen) [facility] AND [id number] 15:39:00 Test Item Value Reference Range Interpretation Comments UA Nitrite (test code Negative (11/21/22 9:39 = UA Nitrite) AM) [facility] AND [id number] 15:39:00 Test Item Value Reference Range Interpretation Comments UA Leuk Est (test Negative (11/21/22 9:39 code = UA Leuk Est) AM) [facility] AND [id number] 15:39:00 Test Item Value Reference Range Interpretation Comments UA Sq Epi (test code = UA Sq Occasional /LPF Epi) [facility] [id number] 15:39:00 Test Item Value Reference Range Interpretation Comments UA WBC (test code = no gt See_Comment [Automa sheba message] The UA WBC) system which ge nerated this result transmit sheba reference range : <=5. The reference range was not used to interpr et this result as edy l/abnormal. [facility] AND [id number] 15:39:00 Test Item Value Reference Range Interpretation Comments UA RBC (test code = no gt See_Comment [Automa sheba message] The UA RBC) system which ge nerated this result transmit sheba reference range : <=2. The reference range was not used to interpr et this result as edy l/abnormal. [id number] 15:39:00 Test Item Value Reference Range Interpretation Comments U Amph Scr (test code Negative *NA*(11/21/22 = U Amph Scr) 9:39 AM) [id number] 15:39:00 Test Item Value Reference Range Interpretation Comments U Analilia Scr (test code Positive *ABN*(11/21/22 = U Analilia Scr) 9:39 AM) [facility] [id number] 15:39:00 Test Item Value Reference Range Interpretation Comments U Benzodiaz Scr (test Negative *NA*(11/21/22 code = U Benzodiaz Scr) 9:39 AM) [facility] [id number] 15:39:00 Test Item Value Reference Range Interpretation Comments U Cocaine Scr (test Negative *NA*(11/21/22 code = U Cocaine Scr) 9:39 AM) [facility] [id number] 15:39:00 Test Item Value Reference Range Interpretation Comments U Cannab Scr (test Negative *NA*(11/21/22 code = U Cannab Scr) 9:39 AM) [facility] [id number] 15:39:00 Test Item Value Reference Range Interpretation Comments U Opiate Scr (test Positive *ABN*(11/21/22 code = U Opiate Scr) 9:39 AM) [id number] 15:39:00 Test Item Value Reference Range Interpretation Comments U Phencyclidine Scr (test Negative code = U Phencyclidine *NA*(11/21/22 9:39 Scr) AM) [facility] [id number] 15:39:00 Test Item Value Reference Range Interpretation Comments UDS Note (test code = See Note (11/21/22 9:39 UDS Note) AM) [facility] [id number] 15:39:00 Test Item Value Reference Range Interpretation Comments U Amph Scr (test code Negative *NA*(11/21/22 = U Amph Scr) 9:39 AM) [facility] [id number] 15:39:00 Test Item Value Reference Range Interpretation Comments U Analilia Scr (test code Positive *ABN*(11/21/22 = U Analilia Scr) 9:39 AM) [facility] [id number] 15:39:00 Test Item Value Reference Range Interpretation Comments U Benzodiaz Scr (test Negative *NA*(11/21/22 code = U Benzodiaz Scr) 9:39 AM) [facility] [id number] 15:39:00 Test Item Value Reference Range Interpretation Comments U Cocaine Scr (test Negative *NA*(11/21/22 code = U Cocaine Scr) 9:39 AM) [facility] [id number] 15:39:00 Test Item Value Reference Range Interpretation Comments U Cannab Scr (test Negative *NA*(11/21/22 code = U Cannab Scr) 9:39 AM) [facility] [id number] 15:39:00 Test Item Value Reference Range Interpretation Comments U Opiate Scr (test Positive *ABN*(11/21/22 code = U Opiate Scr) 9:39 AM) [facility] [id number] 15:39:00 Test Item Value Reference Range Interpretation Comments U Phencyclidine Scr (test Negative code = U Phencyclidine *NA*(11/21/22 9:39 Scr) AM) [facility] [id number] 15:39:00 Test Item Value Reference Range Interpretation Comments UDS Note (test code = See Note (11/21/22 9:39 UDS Note) AM) [facility] [id number] 15:39:00 Test Item Value Reference Range Interpretation Comments Coronavirus (COVID-19) Not Detected (11/21/22 JONATHAN (test code = 9:39 AM) Coronavirus (COVID-19) JONATHAN) [id number] 15:39:00 Test Item Value Reference Range Interpretation Comments Coronavirus (COVID-19) Not Detected (11/21/22 JONATHAN (test code = 9:39 AM) Coronavirus (COVID-19) JONATHAN) [facility] AND [id number] 15:39:00 Test Item Value Reference Range Interpretation Comments UA Color (test code = Light Yellow UA Color) *NA*(11/21/22 9:39 AM) [facility] [id number] 15:39:00 Test Item Value Reference Range Interpretation Comments UA Turbidity (test code = Clear (11/21/22 9:39 UA Turbidity) AM) [facility] [id number] 15:39:00 Test Item Value Reference Range Interpretation Comments UA Spec Grav (test code = UA Spec 1.014 1 Grav) [facility] AND [id number] 15:39:00 Test Item Value Reference Range Interpretation Comments UA pH (test code = UA pH) 6.0 1 5.0-8.0 [facility] AND [id number] 15:39:00 Test Item Value Reference Range Interpretation Comments UA Protein (test code = UA Protein) 30 mg/dL [facility] AND [id number] 15:39:00 Test Item Value Reference Range Interpretation Comments UA Glucose (test code = UA Negative mg/dL Glucose) [facility] AND [id number] 15:39:00 Test Item Value Reference Range Interpretation Comments UA Ketones (test code = UA Negative mg/dL Ketones) [facility] AND [id number] 15:39:00 Test Item Value Reference Range Interpretation Comments UA Bili (test code = Negative *NA*(11/21/22 UA Bili) 9:39 AM) [facility] AND [id number] 15:39:00 Test Item Value Reference Range Interpretation Comments UA Blood (test code = Negative (11/21/22 9:39 UA Blood) AM) [facility] AND [id number] 15:39:00 Test Item Value Reference Range Interpretation Comments UA Urobilinogen (test code = UA no gt 0.1-1.0 Urobilinogen) [facility] AND [id number] 15:39:00 Test Item Value Reference Range Interpretation Comments UA Nitrite (test code Negative (11/21/22 9:39 = UA Nitrite) AM) [facility] AND [id number] 15:39:00 Test Item Value Reference Range Interpretation Comments UA Leuk Est (test Negative (11/21/22 9:39 code = UA Leuk Est) AM) [facility] [id number] 15:39:00 Test Item Value Reference Range Interpretation Comments UA Sq Epi (test code = UA Sq Occasional /LPF Epi) [facility] AND [id number] 15:39:00 Test Item Value Reference Range Interpretation Comments UA WBC (test code = no gt See_Comment [Automa sheba message] The UA WBC) system which ge nerated this result transmit sheba reference range : <=5. The reference range was not used to interpr et this result as edy l/abnormal. [facility] AND [id number] 15:39:00 Test Item Value Reference Range Interpretation Comments UA RBC (test code = no gt See_Comment [Automa sheba message] The UA RBC) system which ge nerated this result transmit sheba reference range : <=2. The reference range was not used to interpr et this result as edy l/abnormal. [facility] AND [id number] 15:39:00 Test Item Value Reference Range Interpretation Comments UA Color (test code = Light Yellow UA Color) *NA*(11/21/22 9:39 AM) [facility] AND [id number] 15:39:00 Test Item Value Reference Range Interpretation Comments UA Turbidity (test code = Clear (11/21/22 9:39 UA Turbidity) AM) [facility] AND [id number] 15:39:00 Test Item Value Reference Range Interpretation Comments UA Spec Grav (test code = UA Spec 1.014 1 Grav) [facility] AND [id number] 15:39:00 Test Item Value Reference Range Interpretation Comments UA pH (test code = UA pH) 6.0 1 5.0-8.0 [facility] AND [id number] 15:39:00 Test Item Value Reference Range Interpretation Comments UA Protein (test code = UA Protein) 30 mg/dL [facility] AND [id number] 15:39:00 Test Item Value Reference Range Interpretation Comments UA Glucose (test code = UA Negative mg/dL Glucose) [facility] AND [id number] 15:39:00 Test Item Value Reference Range Interpretation Comments UA Ketones (test code = UA Negative mg/dL Ketones) [facility] AND [id number] 15:39:00 Test Item Value Reference Range Interpretation Comments UA Bili (test code = Negative *NA*(11/21/22 UA Bili) 9:39 AM) [facility] AND [id number] 15:39:00 Test Item Value Reference Range Interpretation Comments UA Blood (test code = Negative (11/21/22 9:39 UA Blood) AM) [facility] AND [id number] 15:39:00 Test Item Value Reference Range Interpretation Comments UA Urobilinogen (test code = UA no gt 0.1-1.0 Urobilinogen) [facility] AND [id number] 15:39:00 Test Item Value Reference Range Interpretation Comments UA Nitrite (test code Negative (11/21/22 9:39 = UA Nitrite) AM) [facility] AND [id number] 15:39:00 Test Item Value Reference Range Interpretation Comments UA Leuk Est (test Negative (11/21/22 9:39 code = UA Leuk Est) AM) [facility] AND [id number] 15:39:00 Test Item Value Reference Range Interpretation Comments UA Sq Epi (test code = UA Sq Occasional /LPF Epi) [facility] AND [id number] 15:39:00 Test Item Value Reference Range Interpretation Comments UA WBC (test code = no gt See_Comment [Automa sheba message] The UA WBC) system which ge nerated this result transmit sheba reference range : <=5. The reference range was not used to interpr et this result as edy l/abnormal. [facility] AND [id number] 15:39:00 Test Item Value Reference Range Interpretation Comments UA RBC (test code = no gt See_Comment [Automa sheba message] The UA RBC) system which ge nerated this result transmit sheba reference range : <=2. The reference range was not used to interpr et this result as edy l/abnormal. [facility] [id number] 15:39:00 Test Item Value Reference Range Interpretation Comments U Amph Scr (test code Negative *NA*(11/21/22 = U Amph Scr) 9:39 AM) [facility] [id number] 15:39:00 Test Item Value Reference Range Interpretation Comments U Analilia Scr (test code Positive *ABN*(11/21/22 = U Analilia Scr) 9:39 AM) [facility] [id number] 15:39:00 Test Item Value Reference Range Interpretation Comments U Benzodiaz Scr (test Negative *NA*(11/21/22 code = U Benzodiaz Scr) 9:39 AM) [facility] [id number] 15:39:00 Test Item Value Reference Range Interpretation Comments U Cocaine Scr (test Negative *NA*(11/21/22 code = U Cocaine Scr) 9:39 AM) [facility] [id number] 15:39:00 Test Item Value Reference Range Interpretation Comments U Cannab Scr (test Negative *NA*(11/21/22 code = U Cannab Scr) 9:39 AM) [facility] [id number] 15:39:00 Test Item Value Reference Range Interpretation Comments U Opiate Scr (test Positive *ABN*(11/21/22 code = U Opiate Scr) 9:39 AM) [facility] [id number] 15:39:00 Test Item Value Reference Range Interpretation Comments U Phencyclidine Scr (test Negative code = U Phencyclidine *NA*(11/21/22 9:39 Scr) AM) [facility] [id number] 15:39:00 Test Item Value Reference Range Interpretation Comments UDS Note (test code = See Note (11/21/22 9:39 UDS Note) AM) [facility]wayannDRUG [id number] 15:39:00 Test Item Value Reference Range Interpretation Comments U Amph Scr (test code Negative *NA*(11/21/22 = U Amph Scr) 9:39 AM) [facility] [id number] 15:39:00 Test Item Value Reference Range Interpretation Comments U Analilia Scr (test code Positive *ABN*(11/21/22 = U Analilia Scr) 9:39 AM) [facility] [id number] 15:39:00 Test Item Value Reference Range Interpretation Comments U Benzodiaz Scr (test Negative *NA*(11/21/22 code = U Benzodiaz Scr) 9:39 AM) [facility]DR[facility] [id number] 15:39:00 Test Item Value Reference Range Interpretation Comments U Cocaine Scr (test Negative *NA*(11/21/22 code = U Cocaine Scr) 9:39 AM) [facility]DR[facility] [id number] 15:39:00 Test Item Value Reference Range Interpretation Comments U Cannab Scr (test Negative *NA*(11/21/22 code = U Cannab Scr) 9:39 AM) [facility]DR[facility] [id number] 15:39:00 Test Item Value Reference Range Interpretation Comments U Opiate Scr (test Positive *ABN*(11/21/22 code = U Opiate Scr) 9:39 AM) [facility]DR[facility] [id number] 15:39:00 Test Item Value Reference Range Interpretation Comments U Phencyclidine Scr (test Negative code = U Phencyclidine *NA*(11/21/22 9:39 Scr) AM) [facility]wayannDR[facility] [id number] 15:39:00 Test Item Value Reference Range Interpretation Comments UDS Note (test code = See Note (11/21/22 9:39 UDS Note) AM) [facility] [id number] 15:39:00 Test Item Value Reference Range Interpretation Comments Coronavirus (COVID-19) Not Detected (11/21/22 JONATHAN (test code = 9:39 AM) Coronavirus (COVID-19) JONATHAN) [facility] Pa[id number] 15:39:00 Test Item Value Reference Range Interpretation Comments Coronavirus (COVID-19) Not Detected (11/21/22 JONATHAN (test code = 9:39 AM) Coronavirus (COVID-19) JONATHAN) [facility] [id number] 15:39:00 Test Item Value Reference Range Interpretation Comments UA Color (test code = Light Yellow UA Color) *NA*(11/21/22 9:39 AM) [facility] AND [id number] 15:39:00 Test Item Value Reference Range Interpretation Comments UA Turbidity (test code = Clear (11/21/22 9:39 UA Turbidity) AM) [facility] AND [id number] 15:39:00 Test Item Value Reference Range Interpretation Comments UA Spec Grav (test code = UA Spec 1.014 1 Grav) [facility] AND [id number] 15:39:00 Test Item Value Reference Range Interpretation Comments UA pH (test code = UA pH) 6.0 1 5.0-8.0 [facility] AND [id number] 15:39:00 Test Item Value Reference Range Interpretation Comments UA Protein (test code = UA Protein) 30 mg/dL [facility] AND [id number] 15:39:00 Test Item Value Reference Range Interpretation Comments UA Glucose (test code = UA Negative mg/dL Glucose) [facility] AND [id number] 15:39:00 Test Item Value Reference Range Interpretation Comments UA Ketones (test code = UA Negative mg/dL Ketones) [facility] AND [id number] 15:39:00 Test Item Value Reference Range Interpretation Comments UA Bili (test code = Negative *NA*(11/21/22 UA Bili) 9:39 AM) [facility] AND [id number] 15:39:00 Test Item Value Reference Range Interpretation Comments UA Blood (test code = Negative (11/21/22 9:39 UA Blood) AM) [facility] AND [id number] 15:39:00 Test Item Value Reference Range Interpretation Comments UA Urobilinogen (test code = UA no gt 0.1-1.0 Urobilinogen) [facility] AND [id number] 15:39:00 Test Item Value Reference Range Interpretation Comments UA Nitrite (test code Negative (11/21/22 9:39 = UA Nitrite) AM) [facility] AND [id number] 15:39:00 Test Item Value Reference Range Interpretation Comments UA Leuk Est (test Negative (11/21/22 9:39 code = UA Leuk Est) AM) [facility] AND [id number] 15:39:00 Test Item Value Reference Range Interpretation Comments UA Sq Epi (test code = UA Sq Occasional /LPF Epi) [facility] AND [id number] 15:39:00 Test Item Value Reference Range Interpretation Comments UA WBC (test code = no gt See_Comment [Automa sheba message] The UA WBC) system which ge nerated this result transmit sheba reference range : <=5. The reference range was not used to interpr et this result as edy l/abnormal. [facility] AND [id number] 15:39:00 Test Item Value Reference Range Interpretation Comments UA RBC (test code = no gt See_Comment [Automa sheba message] The UA RBC) system which ge nerated this result transmit sheba reference range : <=2. The reference range was not used to interpr et this result as edy l/abnormal. [facility] AND [id number] 15:39:00 Test Item Value Reference Range Interpretation Comments UA Color (test code = Light Yellow UA Color) *NA*(11/21/22 9:39 AM) [facility] AND [id number] 15:39:00 Test Item Value Reference Range Interpretation Comments UA Turbidity (test code = Clear (11/21/22 9:39 UA Turbidity) AM) [facility] AND [id number] 15:39:00 Test Item Value Reference Range Interpretation Comments UA Spec Grav (test code = UA Spec 1.014 1 Grav) [facility] AND [id number] 15:39:00 Test Item Value Reference Range Interpretation Comments UA pH (test code = UA pH) 6.0 1 5.0-8.0 [facility] AND [id number] 15:39:00 Test Item Value Reference Range Interpretation Comments UA Protein (test code = UA Protein) 30 mg/dL [facility] AND [id number] 15:39:00 Test Item Value Reference Range Interpretation Comments UA Glucose (test code = UA Negative mg/dL Glucose) [facility] AND [id number] 15:39:00 Test Item Value Reference Range Interpretation Comments UA Ketones (test code = UA Negative mg/dL Ketones) [facility] AND [id number] 15:39:00 Test Item Value Reference Range Interpretation Comments UA Bili (test code = Negative *NA*(11/21/22 UA Bili) 9:39 AM) [facility] AND [id number] 15:39:00 Test Item Value Reference Range Interpretation Comments UA Blood (test code = Negative (11/21/22 9:39 UA Blood) AM) [facility] [id number] 15:39:00 Test Item Value Reference Range Interpretation Comments UA Urobilinogen (test code = UA no gt 0.1-1.0 Urobilinogen) [facility] AND [id number] 15:39:00 Test Item Value Reference Range Interpretation Comments UA Nitrite (test code Negative (11/21/22 9:39 = UA Nitrite) AM) [facility] AND [id number] 15:39:00 Test Item Value Reference Range Interpretation Comments UA Leuk Est (test Negative (11/21/22 9:39 code = UA Leuk Est) AM) [facility] AND [id number] 15:39:00 Test Item Value Reference Range Interpretation Comments UA Sq Epi (test code = UA Sq Occasional /LPF Epi) [facility] AND [id number] 15:39:00 Test Item Value Reference Range Interpretation Comments UA WBC (test code = no gt See_Comment [Automa sheba message] The UA WBC) system which ge nerated this result transmit sheba reference range : <=5. The reference range was not used to interpr et this result as edy l/abnormal. [facility] AND [id number] 15:39:00 Test Item Value Reference Range Interpretation Comments UA RBC (test code = no gt See_Comment [Automa sheba message] The UA RBC) system which ge nerated this result transmit sheba reference range : <=2. The reference range was not used to interpr et this result as edy l/abnormal. [id number] 15:39:00 Test Item Value Reference Range Interpretation Comments U Amph Scr (test code Negative *NA*(11/21/22 = U Amph Scr) 9:39 AM) [facility] [id number] 15:39:00 Test Item Value Reference Range Interpretation Comments U Analilia Scr (test code Positive *ABN*(11/21/22 = U Analilia Scr) 9:39 AM) [facility] [id number] 15:39:00 Test Item Value Reference Range Interpretation Comments U Benzodiaz Scr (test Negative *NA*(11/21/22 code = U Benzodiaz Scr) 9:39 AM) [facility] [id number] 15:39:00 Test Item Value Reference Range Interpretation Comments U Cocaine Scr (test Negative *NA*(11/21/22 code = U Cocaine Scr) 9:39 AM) [facility] [id number] 15:39:00 Test Item Value Reference Range Interpretation Comments U Cannab Scr (test Negative *NA*(11/21/22 code = U Cannab Scr) 9:39 AM) [facility] [id number] 15:39:00 Test Item Value Reference Range Interpretation Comments U Opiate Scr (test Positive *ABN*(11/21/22 code = U Opiate Scr) 9:39 AM) [facility] [id number] 15:39:00 Test Item Value Reference Range Interpretation Comments U Phencyclidine Scr (test Negative code = U Phencyclidine *NA*(11/21/22 9:39 Scr) AM) [id number] 15:39:00 Test Item Value Reference Range Interpretation Comments UDS Note (test code = See Note (11/21/22 9:39 UDS Note) AM) [facility] [id number] 15:39:00 Test Item Value Reference Range Interpretation Comments U Amph Scr (test code Negative *NA*(11/21/22 = U Amph Scr) 9:39 AM) [facility] [id number] 15:39:00 Test Item Value Reference Range Interpretation Comments U Analilia Scr (test code Positive *ABN*(11/21/22 = U Analilia Scr) 9:39 AM) [facility] [id number] 15:39:00 Test Item Value Reference Range Interpretation Comments U Benzodiaz Scr (test Negative *NA*(11/21/22 code = U Benzodiaz Scr) 9:39 AM) [facility] [id number] 15:39:00 Test Item Value Reference Range Interpretation Comments U Cocaine Scr (test Negative *NA*(11/21/22 code = U Cocaine Scr) 9:39 AM) [facility] [id number] 15:39:00 Test Item Value Reference Range Interpretation Comments U Cannab Scr (test Negative *NA*(11/21/22 code = U Cannab Scr) 9:39 AM) [facility] [id number] 15:39:00 Test Item Value Reference Range Interpretation Comments U Opiate Scr (test Positive *ABN*(11/21/22 code = U Opiate Scr) 9:39 AM) [facility] [id number] 15:39:00 Test Item Value Reference Range Interpretation Comments U Phencyclidine Scr (test Negative code = U Phencyclidine *NA*(11/21/22 9:39 Scr) AM) [facility] [id number] 15:39:00 Test Item Value Reference Range Interpretation Comments UDS Note (test code = See Note (11/21/22 9:39 UDS Note) AM) [facility] [id number] 15:39:00 Test Item Value Reference Range Interpretation Comments Coronavirus (COVID-19) Not Detected (11/21/22 JONATHAN (test code = 9:39 AM) Coronavirus (COVID-19) JONATHAN) [facility] [id number] 15:39:00 Test Item Value Reference Range Interpretation Comments Coronavirus (COVID-19) Not Detected (11/21/22 JONATHAN (test code = 9:39 AM) Coronavirus (COVID-19) JONATHAN) [facility] [id number] 15:39:00 Test Item Value Reference Range Interpretation Comments UA Color (test code = Light Yellow UA Color) *NA*(11/21/22 9:39 AM) [facility] [id number] 15:39:00 Test Item Value Reference Range Interpretation Comments UA Turbidity (test code = Clear (11/21/22 9:39 UA Turbidity) AM) [facility] [id number] 15:39:00 Test Item Value Reference Range Interpretation Comments UA Spec Grav (test code = UA Spec 1.014 1 Grav) [facility] [id number] 15:39:00 Test Item Value Reference Range Interpretation Comments UA pH (test code = UA pH) 6.0 1 5.0-8.0 [facility] [id number] 15:39:00 Test Item Value Reference Range Interpretation Comments UA Protein (test code = UA Protein) 30 mg/dL [facility] AND [id number] 15:39:00 Test Item Value Reference Range Interpretation Comments UA Glucose (test code = UA Negative mg/dL Glucose) [facility] AND [id number] 15:39:00 Test Item Value Reference Range Interpretation Comments UA Ketones (test code = UA Negative mg/dL Ketones) [facility] AND [id number] 15:39:00 Test Item Value Reference Range Interpretation Comments UA Bili (test code = Negative *NA*(11/21/22 UA Bili) 9:39 AM) [facility] AND [id number] 15:39:00 Test Item Value Reference Range Interpretation Comments UA Blood (test code = Negative (11/21/22 9:39 UA Blood) AM) [facility] AND [id number] 15:39:00 Test Item Value Reference Range Interpretation Comments UA Urobilinogen (test code = UA no gt 0.1-1.0 Urobilinogen) [facility] AND [id number] 15:39:00 Test Item Value Reference Range Interpretation Comments UA Nitrite (test code Negative (11/21/22 9:39 = UA Nitrite) AM) [facility] AND [id number] 15:39:00 Test Item Value Reference Range Interpretation Comments UA Leuk Est (test Negative (11/21/22 9:39 code = UA Leuk Est) AM) [facility] AND [id number] 15:39:00 Test Item Value Reference Range Interpretation Comments UA Sq Epi (test code = UA Sq Occasional /LPF Epi) [facility] AND [id number] 15:39:00 Test Item Value Reference Range Interpretation Comments UA WBC (test code = no gt See_Comment [Automa sheba message] The UA WBC) system which ge nerated this result transmit sheba reference range : <=5. The reference range was not used to interpr et this result as edy l/abnormal. [facility] AND [id number] 15:39:00 Test Item Value Reference Range Interpretation Comments UA RBC (test code = no gt See_Comment [Automa sheba message] The UA RBC) system which ge nerated this result transmit sheba reference range : <=2. The reference range was not used to interpr et this result as edy l/abnormal. [facility] AND [id number] 15:39:00 Test Item Value Reference Range Interpretation Comments UA Color (test code = Light Yellow UA Color) *NA*(11/21/22 9:39 AM) [facility] AND [id number] 15:39:00 Test Item Value Reference Range Interpretation Comments UA Turbidity (test code = Clear (11/21/22 9:39 UA Turbidity) AM) [facility] AND [id number] 15:39:00 Test Item Value Reference Range Interpretation Comments UA Spec Grav (test code = UA Spec 1.014 1 Grav) [facility] AND [id number] 15:39:00 Test Item Value Reference Range Interpretation Comments UA pH (test code = UA pH) 6.0 1 5.0-8.0 [facility] AND [id number] 15:39:00 Test Item Value Reference Range Interpretation Comments UA Protein (test code = UA Protein) 30 mg/dL [facility] AND [id number] 15:39:00 Test Item Value Reference Range Interpretation Comments UA Glucose (test code = UA Negative mg/dL Glucose) [facility] AND [id number] 15:39:00 Test Item Value Reference Range Interpretation Comments UA Ketones (test code = UA Negative mg/dL Ketones) [facility] AND [id number] 15:39:00 Test Item Value Reference Range Interpretation Comments UA Bili (test code = Negative *NA*(11/21/22 UA Bili) 9:39 AM) [facility] AND [id number] 15:39:00 Test Item Value Reference Range Interpretation Comments UA Blood (test code = Negative (11/21/22 9:39 UA Blood) AM) [facility] AND [id number] 15:39:00 Test Item Value Reference Range Interpretation Comments UA Urobilinogen (test code = UA no gt 0.1-1.0 Urobilinogen) [facility] AND [id number] 15:39:00 Test Item Value Reference Range Interpretation Comments UA Nitrite (test code Negative (11/21/22 9:39 = UA Nitrite) AM) [facility] AND [id number] 15:39:00 Test Item Value Reference Range Interpretation Comments UA Leuk Est (test Negative (11/21/22 9:39 code = UA Leuk Est) AM) [facility] AND [id number] 15:39:00 Test Item Value Reference Range Interpretation Comments UA Sq Epi (test code = UA Sq Occasional /LPF Epi) [facility] AND [id number] 15:39:00 Test Item Value Reference Range Interpretation Comments UA WBC (test code = no gt See_Comment [Automa sheba message] The UA WBC) system which ge nerated this result transmit sheba reference range : <=5. The reference range was not used to interpr et this result as edy l/abnormal. [facility] AND [id number] 15:39:00 Test Item Value Reference Range Interpretation Comments UA RBC (test code = no gt See_Comment [Automa sheba message] The UA RBC) system which ge nerated this result transmit sheba reference range : <=2. The reference range was not used to interpr et this result as edy l/abnormal. [id number] 15:39:00 Test Item Value Reference Range Interpretation Comments U Amph Scr (test code Negative *NA*(11/21/22 = U Amph Scr) 9:39 AM) [id number] 15:39:00 Test Item Value Reference Range Interpretation Comments U Analilia Scr (test code Positive *ABN*(11/21/22 = U Analilia Scr) 9:39 AM) [facility] [id number] 15:39:00 Test Item Value Reference Range Interpretation Comments U Benzodiaz Scr (test Negative *NA*(11/21/22 code = U Benzodiaz Scr) 9:39 AM) [id number] 15:39:00 Test Item Value Reference Range Interpretation Comments U Cocaine Scr (test Negative *NA*(11/21/22 code = U Cocaine Scr) 9:39 AM) [id number] 15:39:00 Test Item Value Reference Range Interpretation Comments U Cannab Scr (test Negative *NA*(11/21/22 code = U Cannab Scr) 9:39 AM) [facility] [id number] 15:39:00 Test Item Value Reference Range Interpretation Comments U Opiate Scr (test Positive *ABN*(11/21/22 code = U Opiate Scr) 9:39 AM) [facility] [id number] 15:39:00 Test Item Value Reference Range Interpretation Comments U Phencyclidine Scr (test Negative code = U Phencyclidine *NA*(11/21/22 9:39 Scr) AM) [id number] 15:39:00 Test Item Value Reference Range Interpretation Comments UDS Note (test code = See Note (11/21/22 9:39 UDS Note) AM) [facility] [id number] 15:39:00 Test Item Value Reference Range Interpretation Comments U Amph Scr (test code Negative *NA*(11/21/22 = U Amph Scr) 9:39 AM) [facility] [id number] 15:39:00 Test Item Value Reference Range Interpretation Comments U Analilia Scr (test code Positive *ABN*(11/21/22 = U Analilia Scr) 9:39 AM) [facility] [id number] 15:39:00 Test Item Value Reference Range Interpretation Comments U Benzodiaz Scr (test Negative *NA*(11/21/22 code = U Benzodiaz Scr) 9:39 AM) [facility] [id number] 15:39:00 Test Item Value Reference Range Interpretation Comments U Cocaine Scr (test Negative *NA*(11/21/22 code = U Cocaine Scr) 9:39 AM) [facility] [id number] 15:39:00 Test Item Value Reference Range Interpretation Comments U Cannab Scr (test Negative *NA*(11/21/22 code = U Cannab Scr) 9:39 AM) [facility] [id number] 15:39:00 Test Item Value Reference Range Interpretation Comments U Opiate Scr (test Positive *ABN*(11/21/22 code = U Opiate Scr) 9:39 AM) [facility] [id number] 15:39:00 Test Item Value Reference Range Interpretation Comments U Phencyclidine Scr (test Negative code = U Phencyclidine *NA*(11/21/22 9:39 Scr) AM) [facility] [id number] 15:39:00 Test Item Value Reference Range Interpretation Comments UDS Note (test code = See Note (11/21/22 9:39 UDS Note) AM) [facility] [id number] 15:39:00 Test Item Value Reference Range Interpretation Comments Coronavirus (COVID-19) Not Detected (11/21/22 JONATHAN (test code = 9:39 AM) Coronavirus (COVID-19) JONATHAN) [facility] [id number] 15:39:00 Test Item Value Reference Range Interpretation Comments Coronavirus (COVID-19) Not Detected (11/21/22 JONTAHAN (test code = 9:39 AM) Coronavirus (COVID-19) JONATHAN) [facility] [id number] 15:39:00 Test Item Value Reference Range Interpretation Comments UA Color (test code = Light Yellow UA Color) *NA*(11/21/22 9:39 AM) [facility] [id number] 15:39:00 Test Item Value Reference Range Interpretation Comments UA Turbidity (test code = Clear (11/21/22 9:39 UA Turbidity) AM) [facility] [id number] 15:39:00 Test Item Value Reference Range Interpretation Comments UA Spec Grav (test code = UA Spec 1.014 1 Grav) [facility] [id number] 15:39:00 Test Item Value Reference Range Interpretation Comments UA pH (test code = UA pH) 6.0 1 5.0-8.0 [facility] [id number] 15:39:00 Test Item Value Reference Range Interpretation Comments UA Protein (test code = UA Protein) 30 mg/dL [facility] [id number] 15:39:00 Test Item Value Reference Range Interpretation Comments UA Glucose (test code = UA Negative mg/dL Glucose) [facility] [id number] 15:39:00 Test Item Value Reference Range Interpretation Comments UA Ketones (test code = UA Negative mg/dL Ketones) [facility] [id number] 15:39:00 Test Item Value Reference Range Interpretation Comments UA Bili (test code = Negative *NA*(11/21/22 UA Bili) 9:39 AM) [facility] [id number] 15:39:00 Test Item Value Reference Range Interpretation Comments UA Blood (test code = Negative (11/21/22 9:39 UA Blood) AM) [facility] [id number] 15:39:00 Test Item Value Reference Range Interpretation Comments UA Urobilinogen (test code = UA no gt 0.1-1.0 Urobilinogen) [facility] AND [id number] 15:39:00 Test Item Value Reference Range Interpretation Comments UA Nitrite (test code Negative (11/21/22 9:39 = UA Nitrite) AM) [facility] [id number] 15:39:00 Test Item Value Reference Range Interpretation Comments UA Leuk Est (test Negative (11/21/22 9:39 code = UA Leuk Est) AM) [facility] [id number] 15:39:00 Test Item Value Reference Range Interpretation Comments UA Sq Epi (test code = UA Sq Occasional /LPF Epi) [facility] AND [id number] 15:39:00 Test Item Value Reference Range Interpretation Comments UA WBC (test code = no gt See_Comment [Automa sheba message] The UA WBC) system which ge nerated this result transmit sheba reference range : <=5. The reference range was not used to interpr et this result as edy l/abnormal. [facility] AND [id number] 15:39:00 Test Item Value Reference Range Interpretation Comments UA RBC (test code = no gt See_Comment [Automa sheba message] The UA RBC) system which ge nerated this result transmit sheba reference range : <=2. The reference range was not used to interpr et this result as edy l/abnormal. [facility]UR[facility] AND [id number] 15:39:00 Test Item Value Reference Range Interpretation Comments UA Color (test code = Light Yellow UA Color) *NA*(11/21/22 9:39 AM) [facility]line[facility]UR[facility] AND [id number] 15:39:00 Test Item Value Reference Range Interpretation Comments UA Turbidity (test code = Clear (11/21/22 9:39 UA Turbidity) AM) [facility] AND [id number] 15:39:00 Test Item Value Reference Range Interpretation Comments UA Spec Grav (test code = UA Spec 1.014 1 Grav) [facility] AND [id number] 15:39:00 Test Item Value Reference Range Interpretation Comments UA pH (test code = UA pH) 6.0 1 5.0-8.0 [facility] AND [id number] 15:39:00 Test Item Value Reference Range Interpretation Comments UA Protein (test code = UA Protein) 30 mg/dL [facility] AND [id number] 15:39:00 Test Item Value Reference Range Interpretation Comments UA Glucose (test code = UA Negative mg/dL Glucose) [facility] AND [id number] 15:39:00 Test Item Value Reference Range Interpretation Comments UA Ketones (test code = UA Negative mg/dL Ketones) [facility] AND [id number] 15:39:00 Test Item Value Reference Range Interpretation Comments UA Bili (test code = Negative *NA*(11/21/22 UA Bili) 9:39 AM) [facility] AND [id number] 15:39:00 Test Item Value Reference Range Interpretation Comments UA Blood (test code = Negative (11/21/22 9:39 UA Blood) AM) [facility] AND [id number] 15:39:00 Test Item Value Reference Range Interpretation Comments UA Urobilinogen (test code = UA no gt 0.1-1.0 Urobilinogen) [facility] AND [id number] 15:39:00 Test Item Value Reference Range Interpretation Comments UA Nitrite (test code Negative (11/21/22 9:39 = UA Nitrite) AM) [facility] AND [id number] 15:39:00 Test Item Value Reference Range Interpretation Comments UA Leuk Est (test Negative (11/21/22 9:39 code = UA Leuk Est) AM) [facility] AND [id number] 15:39:00 Test Item Value Reference Range Interpretation Comments UA Sq Epi (test code = UA Sq Occasional /LPF Epi) [facility] AND [id number] 15:39:00 Test Item Value Reference Range Interpretation Comments UA WBC (test code = no gt See_Comment [Automa sheba message] The UA WBC) system which ge nerated this result transmit sheba reference range : <=5. The reference range was not used to interpr et this result as edy l/abnormal. [facility]bernieK[facility] AND [id number] 15:39:00 Test Item Value Reference Range Interpretation Comments UA RBC (test code = no gt See_Comment [Automa sheba message] The UA RBC) system which ge nerated this result transmit sheba reference range : <=2. The reference range was not used to interpr et this result as edy l/abnormal. [id number] 15:39:00 Test Item Value Reference Range Interpretation Comments U Amph Scr (test code Negative *NA*(11/21/22 = U Amph Scr) 9:39 AM) [facility] [id number] 15:39:00 Test Item Value Reference Range Interpretation Comments U Analilia Scr (test code Positive *ABN*(11/21/22 = U Analilia Scr) 9:39 AM) [facility] [id number] 15:39:00 Test Item Value Reference Range Interpretation Comments U Benzodiaz Scr (test Negative *NA*(11/21/22 code = U Benzodiaz Scr) 9:39 AM) [facility] [id number] 15:39:00 Test Item Value Reference Range Interpretation Comments U Cocaine Scr (test Negative *NA*(11/21/22 code = U Cocaine Scr) 9:39 AM) [facility] [id number] 15:39:00 Test Item Value Reference Range Interpretation Comments U Cannab Scr (test Negative *NA*(11/21/22 code = U Cannab Scr) 9:39 AM) [id number] 15:39:00 Test Item Value Reference Range Interpretation Comments U Opiate Scr (test Positive *ABN*(11/21/22 code = U Opiate Scr) 9:39 AM) [facility] [id number] 15:39:00 Test Item Value Reference Range Interpretation Comments U Phencyclidine Scr (test Negative code = U Phencyclidine *NA*(11/21/22 9:39 Scr) AM) [id number] 15:39:00 Test Item Value Reference Range Interpretation Comments UDS Note (test code = See Note (11/21/22 9:39 UDS Note) AM) [facility] [id number] 15:39:00 Test Item Value Reference Range Interpretation Comments U Amph Scr (test code Negative *NA*(11/21/22 = U Amph Scr) 9:39 AM) [facility] [id number] 15:39:00 Test Item Value Reference Range Interpretation Comments U Analilia Scr (test code Positive *ABN*(11/21/22 = U Analilia Scr) 9:39 AM) [facility] [id number] 15:39:00 Test Item Value Reference Range Interpretation Comments U Benzodiaz Scr (test Negative *NA*(11/21/22 code = U Benzodiaz Scr) 9:39 AM) [facility] [id number] 15:39:00 Test Item Value Reference Range Interpretation Comments U Cocaine Scr (test Negative *NA*(11/21/22 code = U Cocaine Scr) 9:39 AM) [facility] [id number] 15:39:00 Test Item Value Reference Range Interpretation Comments U Cannab Scr (test Negative *NA*(11/21/22 code = U Cannab Scr) 9:39 AM) [facility] [id number] 15:39:00 Test Item Value Reference Range Interpretation Comments U Opiate Scr (test Positive *ABN*(11/21/22 code = U Opiate Scr) 9:39 AM) [facility] [id number] 15:39:00 Test Item Value Reference Range Interpretation Comments U Phencyclidine Scr (test Negative code = U Phencyclidine *NA*(11/21/22 9:39 Scr) AM) [facility] [id number] 15:39:00 Test Item Value Reference Range Interpretation Comments UDS Note (test code = See Note (11/21/22 9:39 UDS Note) AM) [facility] [id number] 15:39:00 Test Item Value Reference Range Interpretation Comments Coronavirus (COVID-19) Not Detected (11/21/22 JONATHAN (test code = 9:39 AM) Coronavirus (COVID-19) JONATHAN) [facility] [id number] 15:39:00 Test Item Value Reference Range Interpretation Comments Coronavirus (COVID-19) Not Detected (11/21/22 JONATHAN (test code = 9:39 AM) Coronavirus (COVID-19) JONATHAN) [facility] AND [id number] 15:39:00 Test Item Value Reference Range Interpretation Comments UA Color (test code = Light Yellow UA Color) *NA*(11/21/22 9:39 AM) [facility] AND [id number] 15:39:00 Test Item Value Reference Range Interpretation Comments UA Turbidity (test code = Clear (11/21/22 9:39 UA Turbidity) AM) [facility] AND [id number] 15:39:00 Test Item Value Reference Range Interpretation Comments UA Spec Grav (test code = UA Spec 1.014 1 Grav) [facility] AND [id number] 15:39:00 Test Item Value Reference Range Interpretation Comments UA pH (test code = UA pH) 6.0 1 5.0-8.0 [facility] AND [id number] 15:39:00 Test Item Value Reference Range Interpretation Comments UA Protein (test code = UA Protein) 30 mg/dL [facility] AND [id number] 15:39:00 Test Item Value Reference Range Interpretation Comments UA Glucose (test code = UA Negative mg/dL Glucose) [facility] AND [id number] 15:39:00 Test Item Value Reference Range Interpretation Comments UA Ketones (test code = UA Negative mg/dL Ketones) [facility] AND [id number] 15:39:00 Test Item Value Reference Range Interpretation Comments UA Bili (test code = Negative *NA*(11/21/22 UA Bili) 9:39 AM) [facility] AND [id number] 15:39:00 Test Item Value Reference Range Interpretation Comments UA Blood (test code = Negative (11/21/22 9:39 UA Blood) AM) [facility] AND [id number] 15:39:00 Test Item Value Reference Range Interpretation Comments UA Urobilinogen (test code = UA no gt 0.1-1.0 Urobilinogen) [facility] AND [id number] 15:39:00 Test Item Value Reference Range Interpretation Comments UA Nitrite (test code Negative (11/21/22 9:39 = UA Nitrite) AM) [facility] [id number] 15:39:00 Test Item Value Reference Range Interpretation Comments UA Leuk Est (test Negative (11/21/22 9:39 code = UA Leuk Est) AM) [facility] AND [id number] 15:39:00 Test Item Value Reference Range Interpretation Comments UA Sq Epi (test code = UA Sq Occasional /LPF Epi) [facility] AND [id number] 15:39:00 Test Item Value Reference Range Interpretation Comments UA WBC (test code = no gt See_Comment [Automa sheba message] The UA WBC) system which ge nerated this result transmit sheba reference range : <=5. The reference range was not used to interpr et this result as edy l/abnormal. [facility] AND [id number] 15:39:00 Test Item Value Reference Range Interpretation Comments UA RBC (test code = no gt See_Comment [Automa sheba message] The UA RBC) system which ge nerated this result transmit sheba reference range : <=2. The reference range was not used to interpr et this result as edy l/abnormal. [facility] AND [id number] 15:39:00 Test Item Value Reference Range Interpretation Comments UA Color (test code = Light Yellow UA Color) *NA*(11/21/22 9:39 AM) [facility] [id number] 15:39:00 Test Item Value Reference Range Interpretation Comments UA Turbidity (test code = Clear (11/21/22 9:39 UA Turbidity) AM) [facility] AND [id number] 15:39:00 Test Item Value Reference Range Interpretation Comments UA Spec Grav (test code = UA Spec 1.014 1 Grav) [facility] [id number] 15:39:00 Test Item Value Reference Range Interpretation Comments UA pH (test code = UA pH) 6.0 1 5.0-8.0 [facility] [id number] 15:39:00 Test Item Value Reference Range Interpretation Comments UA Protein (test code = UA Protein) 30 mg/dL [facility] [facility] AND [id number] 15:39:00 Test Item Value Reference Range Interpretation Comments UA Glucose (test code = UA Negative mg/dL Glucose) [facility] AND [id number] 15:39:00 Test Item Value Reference Range Interpretation Comments UA Ketones (test code = UA Negative mg/dL Ketones) [facility] AND [id number] 15:39:00 Test Item Value Reference Range Interpretation Comments UA Bili (test code = Negative *NA*(11/21/22 UA Bili) 9:39 AM) [facility] AND [id number] 15:39:00 Test Item Value Reference Range Interpretation Comments UA Blood (test code = Negative (11/21/22 9:39 UA Blood) AM) [facility] AND [id number] 15:39:00 Test Item Value Reference Range Interpretation Comments UA Urobilinogen (test code = UA no gt 0.1-1.0 Urobilinogen) [facility] AND [id number] 15:39:00 Test Item Value Reference Range Interpretation Comments UA Nitrite (test code Negative (11/21/22 9:39 = UA Nitrite) AM) [facility] AND [id number] 15:39:00 Test Item Value Reference Range Interpretation Comments UA Leuk Est (test Negative (11/21/22 9:39 code = UA Leuk Est) AM) [facility] AND [id number] 15:39:00 Test Item Value Reference Range Interpretation Comments UA Sq Epi (test code = UA Sq Occasional /LPF Epi) [facility] AND [id number] 15:39:00 Test Item Value Reference Range Interpretation Comments UA WBC (test code = no gt See_Comment [Automa sheba message] The UA WBC) system which ge nerated this result transmit sheba reference range : <=5. The reference range was not used to interpr et this result as edy l/abnormal. [facility] AND [id number] 15:39:00 Test Item Value Reference Range Interpretation Comments UA RBC (test code = no gt See_Comment [Automa sheba message] The UA RBC) system which ge nerated this result transmit sheba reference range : <=2. The reference range was not used to interpr et this result as edy l/abnormal. [facility] [id number] 12:50:00 Test Item Value Reference Range Interpretation Comments ABO/Rh (test code = ABO/Rh) O POS [facility] [id number] 12:50:00 Test Item Value Reference Range Interpretation Comments Antibody Scrn (test Negative (11/21/22 6:50 code = Antibody Scrn) AM) [facility]bergAygkoimYSDZASWCN0220-95-07 12:50:00 Test Item Value Reference Range Interpretation Comments Ethanol Lvl (test code = Ethanol Lvl) no gt [facility] KlebergQwngouhUICGRORAB8857-28-70 12:50:00 Test Item Value Reference Range Interpretation Comments Etoh (%) (test code = Etoh (%)) no gt [facility] KlebergTuqfrgaWBGSBSBHK1005-69-71 12:50:00 Test Item Value Reference Range Interpretation Comments Lactic Acid Lvl (test code = Lactic 0.7 0.5-2.2 Acid Lvl) [facility] KlebergIpezgyaHKALXKHLJ3019-38-05 12:50:00 Test Item Value Reference Range Interpretation Comments Total Protein (test code = Total 6.1 6.4-8.4 Protein) [facility] KlebergMqxwbasQYOYHWWNY2765-17-48 12:50:00 Test Item Value Reference Range Interpretation Comments Albumin Lvl (test code = Albumin Lvl) 2.9 3.5-5.0 [facility] KlebergBgmcubnNHIPPKUYG8794-37-71 12:50:00 Test Item Value Reference Range Interpretation Comments Globulin (test code = Globulin) 3.2 2.7-4.2 [facility] KlebergMipnqhcCYGREPOGG5567-65-44 12:50:00 Test Item Value Reference Range Interpretation Comments A/G Ratio (test code = A/G Ratio) 0.9 1 0.7-1.6 [facility] KlebergRniobegPEGMDBYJQ2443-77-56 12:50:00 Test Item Value Reference Range Interpretation Comments ALT (test code = ALT) 16 See_Comment [Auto mated message] The system which ge nerated this result transmit sheba reference range : <=65. The reference range was not used to interpr et this result as edy l/abnormal. [facility] KlebergUugstcrHYHXOAVUX8356-06-49 12:50:00 Test Item Value Reference Range Interpretation Comments AST (test code = AST) 15 See_Comment [Auto mated message] The system which ge nerated this result transmit sheba reference range : <=37. The reference range was not used to interpr et this result as edy l/abnormal. [facility] KlebergMnsacgeLAMAPNVWT0808-69-59 12:50:00 Test Item Value Reference Range Interpretation Comments Alk Phos (test code = Alk Phos) 96 39-136 [facility] KlebergUrgmtbtSEFJHFXJR1862-01-40 12:50:00 Test Item Value Reference Range Interpretation Comments Bili Total (test code = Bili Total) 0.2 0.2-1.3 [place] 647753-02-21 12:50:00 Test Item Value Reference Range Interpretation Comments Bili Direct (test code no gt See_Comment [Aut omated message] The = Bili Direct) system which generated this result tra nsmitted reference range : <=0.3. The reference r christiano was not used to int erpret this result as edy l/abnormal. [facility] KlebergUkyjhucOMPAJHZGL3068-86-89 12:50:00 Test Item Value Reference Range Interpretation Comments Bili Indirect Unable to See_Comment [Automated (test code = Bili Calculate message] T he system Indirect) which generated this result transmitted reference range : <=1.0. The reference range was not used to interpret this result as normal/abnormal . [facility] KlebergZpgryfvHDLZGOXFQ9798-60-03 12:50:00 Test Item Value Reference Range Interpretation Comments HS Troponin I (test code = HS Troponin 15 I) [facility] KlebergYedgklvKFVWVTOUG5827-58-95 12:50:00 Test Item Value Reference Range Interpretation Comments pH Justin (test code = pH Justin) 7.35 1 7.28-7.42 [place] 647753-02-21 12:50:00 Test Item Value Reference Range Interpretation Comments pCO2 Justin (test code = pCO2 Justin) 55 38-52 [place] 647753-02-21 12:50:00 Test Item Value Reference Range Interpretation Comments pO2 Justin (test code = pO2 Justin) 43 20-49 [place] 647753-02-21 12:50:00 Test Item Value Reference Range Interpretation Comments HCO3 Justin (test code = HCO3 Justin) 30 22-26 [place] 647753-02-21 12:50:00 Test Item Value Reference Range Interpretation Comments BE Justin (test code = BE Justin) 3 -2-2 [place] 647753-02-21 12:50:00 Test Item Value Reference Range Interpretation Comments O2 Sat Justin (calc) (test code = O2 Sat 75.9 40.0-70.0 Justin (calc)) [facility] KlebergNvhgizkATVNCZNIF7880-03-35 12:50:00 Test Item Value Reference Range Interpretation Comments Temp Justin (test code = Temp Justin) 37.0 [place] 391173-02-21 12:50:00 Test Item Value Reference Range Interpretation Comments ACT (TEG) Rapid (test code = ACT (TEG) 113 s 86-118 Rapid) [facility] McAllenAqushweUEESXZYVJA4841-15-95 12:50:00 Test Item Value Reference Range Interpretation Comments Split Point Rapid (test code = Split 0.6 min Point Rapid) [place] 391173-02-21 12:50:00 Test Item Value Reference Range Interpretation Comments R-time Rapid (test code = R-time 0.7 min 0.4-0.7 Rapid) [place] 391173-02-21 12:50:00 Test Item Value Reference Range Interpretation Comments K-time Rapid (test code = K-time 1.1 min 0.6-2.3 Rapid) [place] 391173-02-21 12:50:00 Test Item Value Reference Range Interpretation Comments Angle Rapid (test code = Angle 78 degrees 64-80 Rapid) [place] 391173-02-21 12:50:00 Test Item Value Reference Range Interpretation Comments Max Amplitude Rapid (test code = Max 65 mm 52-71 Amplitude Rapid) [place] 391173-02-21 12:50:00 Test Item Value Reference Range Interpretation Comments G-value Rapid (test code = G-value 9.2 5.0-11.6 Rapid) [place] [address]-02-21 12:50:00 Test Item Value Reference Range Interpretation Comments Estimated % Lysis Rapid 0.0 See_Comment [Au tomated message] The (test code = Estimated syste m which generated % Lysis Rapid) this result t ransmitted reference range : <=7.5. The reference r christiano was not used to int erpret this result as normal/abnormal . [place] 391173-02-21 12:50:00 Test Item Value Reference Range Interpretation Comments Plt Morph (test code = See Note 1(11/21/22 Plt Morph) 6:50 AM) [facility]wayYksaxjdUHDHJQMUSZ2842-30-75 12:50:00 Test Item Value Reference Range Interpretation Comments Stomatocyte (test code = Stomatocyte) slight [facility] ParkwayQuartix [facility] RYMBURP3802-34-42 12:50:00 Test Item Value Reference Range Interpretation Comments ABO/Rh (test code = ABO/Rh) O POS [facility] [employer] [facility] [id number] 12:50:00 Test Item Value Reference Range Interpretation Comments Antibody Scrn (test Negative (11/21/22 6:50 code = Antibody Scrn) AM) [facility] ParkwayLpzbhodRCVHPEBPP3691-51-61 12:50:00 Test Item Value Reference Range Interpretation Comments Ethanol Lvl (test code = Ethanol Lvl) no gt [facility] NezgpnhJKSHNEWPB6928-94-60 12:50:00 Test Item Value Reference Range Interpretation Comments Etoh (%) (test code = Etoh (%)) no gt [facility] FwzobklAPVKODFXU9033-90-83 12:50:00 Test Item Value Reference Range Interpretation Comments Lactic Acid Lvl (test code = Lactic 0.7 0.5-2.2 Acid Lvl) [facility] ParkwayNuwssgnPFFJBOMBB5523-74-11 12:50:00 Test Item Value Reference Range Interpretation Comments Total Protein (test code = Total 6.1 6.4-8.4 Protein) [facility] ParkwayVsvsnrjUBTVYUUUP9271-34-17 12:50:00 Test Item Value Reference Range Interpretation Comments Albumin Lvl (test code = Albumin Lvl) 2.9 3.5-5.0 [facility] XfajhljUNFJFBFMO4703-82-15 12:50:00 Test Item Value Reference Range Interpretation Comments Globulin (test code = Globulin) 3.2 2.7-4.2 [facility] ParkwayMohiwytQTOROVNQA6215-46-97 12:50:00 Test Item Value Reference Range Interpretation Comments A/G Ratio (test code = A/G Ratio) 0.9 1 0.7-1.6 [facility] ParkwayRkcixeoTIHSGNDWK0154-95-36 12:50:00 Test Item Value Reference Range Interpretation Comments ALT (test code = ALT) 16 See_Comment [Auto mated message] The system which ge nerated this result transmit sheba reference range : <=65. The reference range was not used to interpr et this result as edy l/abnormal. [facility] CenterMwapwuoGLHRMEBVF3809-44-91 12:50:00 Test Item Value Reference Range Interpretation Comments AST (test code = AST) 15 See_Comment [Auto mated message] The system which ge nerated this result transmit sheba reference range : <=37. The reference range was not used to interpr et this result as edy l/abnormal. [facility] CenterVjyndhsXWPUZZUTX4595-06-05 12:50:00 Test Item Value Reference Range Interpretation Comments Alk Phos (test code = Alk Phos) 96 39-136 [facility] KlebergUgxbkjfNGXIXMJSL4058-02-99 12:50:00 Test Item Value Reference Range Interpretation Comments Bili Total (test code = Bili Total) 0.2 0.2-1.3 [place] 647753-02-21 12:50:00 Test Item Value Reference Range Interpretation Comments Bili Direct (test code no gt See_Comment [Aut omated message] The = Bili Direct) system which generated this result tra nsmitted reference range : <=0.3. The reference r christiano was not used to int erpret this result as edy l/abnormal. [facility] CenterAjvuercAFNMISFQE0806-79-55 12:50:00 Test Item Value Reference Range Interpretation Comments Bili Indirect Unable to See_Comment [Automated (test code = Bili Calculate message] T he system Indirect) which generated this result transmitted reference range : <=1.0. The reference range was not used to interpret this result as normal/abnormal . [facility] CenterFyewmkgAXSWFFXRX5188-95-68 12:50:00 Test Item Value Reference Range Interpretation Comments HS Troponin I (test code = HS Troponin 15 I) [facility] KlebergCoidbaiWWXGDMOHA2691-78-16 12:50:00 Test Item Value Reference Range Interpretation Comments pH Justin (test code = pH Justin) 7.35 1 7.28-7.42 [place] 647753-02-21 12:50:00 Test Item Value Reference Range Interpretation Comments pCO2 Justin (test code = pCO2 Justin) 55 38-52 [place] 647753-02-21 12:50:00 Test Item Value Reference Range Interpretation Comments pO2 Justin (test code = pO2 Justin) 43 20-49 [place] 647753-02-21 12:50:00 Test Item Value Reference Range Interpretation Comments HCO3 Justin (test code = HCO3 Justin) 30 22-26 [place] 647753-02-21 12:50:00 Test Item Value Reference Range Interpretation Comments BE Justin (test code = BE Justin) 3 -2-2 [place] 647753-02-21 12:50:00 Test Item Value Reference Range Interpretation Comments O2 Sat Justin (calc) (test code = O2 Sat 75.9 40.0-70.0 Justin (calc)) [place] 647753-02-21 12:50:00 Test Item Value Reference Range Interpretation Comments Temp Justin (test code = Temp Justin) 37.0 [place] 391173-02-21 12:50:00 Test Item Value Reference Range Interpretation Comments ACT (TEG) Rapid (test code = ACT (TEG) 113 s 86-118 Rapid) [place] 391173-02-21 12:50:00 Test Item Value Reference Range Interpretation Comments Split Point Rapid (test code = Split 0.6 min Point Rapid) [place] 391173-02-21 12:50:00 Test Item Value Reference Range Interpretation Comments R-time Rapid (test code = R-time 0.7 min 0.4-0.7 Rapid) [place] 391173-02-21 12:50:00 Test Item Value Reference Range Interpretation Comments K-time Rapid (test code = K-time 1.1 min 0.6-2.3 Rapid) [place] 391173-02-21 12:50:00 Test Item Value Reference Range Interpretation Comments Angle Rapid (test code = Angle 78 degrees 64-80 Rapid) [place] 391173-02-21 12:50:00 Test Item Value Reference Range Interpretation Comments Max Amplitude Rapid (test code = Max 65 mm 52-71 Amplitude Rapid) [place] 391173-02-21 12:50:00 Test Item Value Reference Range Interpretation Comments G-value Rapid (test code = G-value 9.2 5.0-11.6 Rapid) [place] 391173-02-21 12:50:00 Test Item Value Reference Range Interpretation Comments Estimated % Lysis Rapid 0.0 See_Comment [Au tomated message] The (test code = Estimated syste m which generated % Lysis Rapid) this result t ransmitted reference range : <=7.5. The reference r christiano was not used to int erpret this result as normal/abnormal . [facility] ParkwayHhkdcanXWRVESZQNJ8981-88-86 12:50:00 Test Item Value Reference Range Interpretation Comments Plt Morph (test code = See Note 1(11/21/22 Plt Morph) 6:50 AM) [facility] CenterWuicxycHWSYCOLLAC5864-15-85 12:50:00 Test Item Value Reference Range Interpretation Comments Stomatocyte (test code = Stomatocyte) slight [facility] ParkwayShip It Bag Check [id number] 12:50:00 Test Item Value Reference Range Interpretation Comments ABO/Rh (test code = ABO/Rh) O POS [facility] ParkwayMontage TalentBefore the Call [facility] [id number] 12:50:00 Test Item Value Reference Range Interpretation Comments Antibody Scrn (test Negative (11/21/22 6:50 code = Antibody Scrn) AM) [facility] LYYZKHR1923-38-00 12:50:00 Test Item Value Reference Range Interpretation Comments ABO/Rh (test code = ABO/Rh) O POS [facility] [employer] [id number] 12:50:00 Test Item Value Reference Range Interpretation Comments Antibody Scrn (test Negative (11/21/22 6:50 code = Antibody Scrn) AM) [facility] ParkwayMontage TalentCARDIAC OIJRTRV7544-06-01 12:50:00 Test Item Value Reference Range Interpretation Comments HS Troponin I (test code = HS Troponin 15 I) [facility] [employer] [id number] 12:50:00 Test Item Value Reference Range Interpretation Comments Glucose Lvl (test code = Glucose Lvl) 99 70-99 [facility] [employer] [id number] 12:50:00 Test Item Value Reference Range Interpretation Comments BUN (test code = BUN) 38 7-22 [facility] [employer]2023-02-21 12:50:00 Test Item Value Reference Range Interpretation Comments Creatinine Lvl (test code = Creatinine 2.38 0.50-1.40 Lvl) [facility] [employer] YJUVD6312-10-60 12:50:00 Test Item Value Reference Range Interpretation Comments Sodium Lvl (test code = Sodium Lvl) 140 135-145 [facility] [employer] [id number] 12:50:00 Test Item Value Reference Range Interpretation Comments Potassium Lvl (test code = Potassium 3.9 3.5-5.1 Lvl) [place] 468413-02-21 12:50:00 Test Item Value Reference Range Interpretation Comments Chloride Lvl (test code = Chloride Lvl) 107 95-109 [place] 468413-02-21 12:50:00 Test Item Value Reference Range Interpretation Comments CO2 (test code = CO2) 27 24-32 [place] 468413-02-21 12:50:00 Test Item Value Reference Range Interpretation Comments Calcium Lvl (test code = Calcium Lvl) 8.1 8.5-10.5 [place] 468413-02-21 12:50:00 Test Item Value Reference Range Interpretation Comments AGAP (test code = AGAP) 9.9 10.0-20.0 [place] 468413-02-21 12:50:00 Test Item Value Reference Range Interpretation Comments eGFR (test code = eGFR) 20 [place] 468413-02-21 12:50:00 Test Item Value Reference Range Interpretation Comments Lactic Acid Lvl (test code = Lactic 0.7 0.5-2.2 Acid Lvl) [place] 468413-02-21 12:50:00 Test Item Value Reference Range Interpretation Comments Total Protein (test code = Total 6.1 6.4-8.4 Protein) [place] 468413-02-21 12:50:00 Test Item Value Reference Range Interpretation Comments Albumin Lvl (test code = Albumin Lvl) 2.9 3.5-5.0 [place] [address]-02-21 12:50:00 Test Item Value Reference Range Interpretation Comments Globulin (test code = Globulin) 3.2 2.7-4.2 [place] 468413-02-21 12:50:00 Test Item Value Reference Range Interpretation Comments A/G Ratio (test code = A/G Ratio) 0.9 1 0.7-1.6 [place] [address]-02-21 12:50:00 Test Item Value Reference Range Interpretation Comments ALT (test code = ALT) 16 See_Comment [Auto mated message] The system which ge nerated this result transmit sheba reference range : <=65. The reference range was not used to interpr et this result as edy l/abnormal. [place] 468413-02-21 12:50:00 Test Item Value Reference Range Interpretation Comments AST (test code = AST) 15 See_Comment [Auto mated message] The system which ge nerated this result transmit sheba reference range : <=37. The reference range was not used to interpr et this result as edy l/abnormal. [facility] ParkwayPlay2Focus [id number] 12:50:00 Test Item Value Reference Range Interpretation Comments Alk Phos (test code = Alk Phos) 96 39-136 [facility] ParkwayPlay2Focus HDYQF0601-25-79 12:50:00 Test Item Value Reference Range Interpretation Comments Bili Total (test code = Bili Total) 0.2 0.2-1.3 [facility] CenterGluMetrics [id number] 12:50:00 Test Item Value Reference Range Interpretation Comments Bili Direct (test code no gt See_Comment [Aut omated message] The = Bili Direct) system which generated this result tra nsmitted reference range : <=0.3. The reference r christiano was not used to int erpret this result as edy l/abnormal. [facility] ParkwayPlay2Focus [id number] 12:50:00 Test Item Value Reference Range Interpretation Comments Bili Indirect Unable to See_Comment [Automated (test code = Bili Calculate message] T he system Indirect) which generated this result transmitted reference range : <=1.0. The reference range was not used to interpret this result as normal/abnormal . [facility] CenterEuxvqyrZKXYLTZFN4223-47-87 12:50:00 Test Item Value Reference Range Interpretation Comments Ethanol Lvl (test code = Ethanol Lvl) no gt [facility] CenterOiufbvfJKZGHMAWI1144-41-53 12:50:00 Test Item Value Reference Range Interpretation Comments Etoh (%) (test code = Etoh (%)) no gt [facility] CenterJpughmjDIXDYXBAH5440-42-14 12:50:00 Test Item Value Reference Range Interpretation Comments Lactic Acid Lvl (test code = Lactic 0.7 0.5-2.2 Acid Lvl) [place] 647753-02-21 12:50:00 Test Item Value Reference Range Interpretation Comments Total Protein (test code = Total 6.1 6.4-8.4 Protein) [place] 647753-02-21 12:50:00 Test Item Value Reference Range Interpretation Comments Albumin Lvl (test code = Albumin Lvl) 2.9 3.5-5.0 [facility] ParkwayMrggmlzQMSBPMEHC9984-35-42 12:50:00 Test Item Value Reference Range Interpretation Comments Globulin (test code = Globulin) 3.2 2.7-4.2 [facility] ParkwayDqhdfahMIYKGLVFX2112-96-27 12:50:00 Test Item Value Reference Range Interpretation Comments A/G Ratio (test code = A/G Ratio) 0.9 1 0.7-1.6 [facility] ParkwayLkdnyjyUHICNFREP9306-86-72 12:50:00 Test Item Value Reference Range Interpretation Comments ALT (test code = ALT) 16 See_Comment [Auto mated message] The system which ge nerated this result transmit sheba reference range : <=65. The reference range was not used to interpr et this result as edy l/abnormal. [facility] ParkwayWhjsrokXJBVWSHFV5330-83-34 12:50:00 Test Item Value Reference Range Interpretation Comments AST (test code = AST) 15 See_Comment [Auto mated message] The system which ge nerated this result transmit sheba reference range : <=37. The reference range was not used to interpr et this result as edy l/abnormal. [facility] ParkwayUsqyymhBMAZSCOPJ3469-16-17 12:50:00 Test Item Value Reference Range Interpretation Comments Alk Phos (test code = Alk Phos) 96 39-136 [facility] ParkwayOokdnzePPOPPIRBJ4248-00-28 12:50:00 Test Item Value Reference Range Interpretation Comments Bili Total (test code = Bili Total) 0.2 0.2-1.3 [facility] ParkwayVhypebjTTDKIBEMB5114-25-62 12:50:00 Test Item Value Reference Range Interpretation Comments Bili Direct (test code no gt See_Comment [Aut omated message] The = Bili Direct) system which generated this result tra nsmitted reference range : <=0.3. The reference r christiano was not used to int erpret this result as edy l/abnormal. [facility] ParkwayWcwmuphFYZSMFLGF3657-62-24 12:50:00 Test Item Value Reference Range Interpretation Comments Bili Indirect Unable to See_Comment [Automated (test code = Bili Calculate message] T he system Indirect) which generated this result transmitted reference range : <=1.0. The reference range was not used to interpret this result as normal/abnormal . [facility] ParkwayTqfkxrqGEFMOAYDD0194-52-61 12:50:00 Test Item Value Reference Range Interpretation Comments HS Troponin I (test code = HS Troponin 15 I) [facility] KlebergYngbjhoYLSJTQFIC5516-12-93 12:50:00 Test Item Value Reference Range Interpretation Comments pH Justin (test code = pH Justin) 7.35 1 7.28-7.42 [place] [address]-02-21 12:50:00 Test Item Value Reference Range Interpretation Comments pCO2 Justin (test code = pCO2 Justin) 55 38-52 [place] 647753-02-21 12:50:00 Test Item Value Reference Range Interpretation Comments pO2 Justin (test code = pO2 Justin) 43 20-49 [place] 647753-02-21 12:50:00 Test Item Value Reference Range Interpretation Comments HCO3 Justin (test code = HCO3 Justin) 30 22-26 [place] 647753-02-21 12:50:00 Test Item Value Reference Range Interpretation Comments BE Justin (test code = BE Justin) 3 -2-2 [place] 647753-02-21 12:50:00 Test Item Value Reference Range Interpretation Comments O2 Sat Justin (calc) (test code = O2 Sat 75.9 40.0-70.0 Justin (calc)) [facility] KlebergKeyzojyLLRGPEOSL3768-01-34 12:50:00 Test Item Value Reference Range Interpretation Comments Temp Justin (test code = Temp Justin) 37.0 [facility] McAllenBsmxyqnMAAZZKNYBQ7325-59-67 12:50:00 Test Item Value Reference Range Interpretation Comments ACT (TEG) Rapid (test code = ACT (TEG) 113 s 86-118 Rapid) [place] 391173-02-21 12:50:00 Test Item Value Reference Range Interpretation Comments Split Point Rapid (test code = Split 0.6 min Point Rapid) [place] 391173-02-21 12:50:00 Test Item Value Reference Range Interpretation Comments R-time Rapid (test code = R-time 0.7 min 0.4-0.7 Rapid) [place] 391173-02-21 12:50:00 Test Item Value Reference Range Interpretation Comments K-time Rapid (test code = K-time 1.1 min 0.6-2.3 Rapid) [place] 391173-02-21 12:50:00 Test Item Value Reference Range Interpretation Comments Angle Rapid (test code = Angle 78 degrees 64-80 Rapid) [place] [id number] 12:50:00 Test Item Value Reference Range Interpretation Comments Max Amplitude Rapid (test code = Max 65 mm 52-71 Amplitude Rapid) [place] 391173-02-21 12:50:00 Test Item Value Reference Range Interpretation Comments G-value Rapid (test code = G-value 9.2 5.0-11.6 Rapid) [place] 391173-02-21 12:50:00 Test Item Value Reference Range Interpretation Comments Estimated % Lysis Rapid 0.0 See_Comment [Au tomated message] The (test code = Estimated syste m which generated % Lysis Rapid) this result t ransmitted reference range : <=7.5. The reference r christiano was not used to int erpret this result as normal/abnormal . [place] 391173-02-21 12:50:00 Test Item Value Reference Range Interpretation Comments Plt Morph (test code = See Note 1(11/21/22 Plt Morph) 6:50 AM) [place] [address]-02-21 12:50:00 Test Item Value Reference Range Interpretation Comments Stomatocyte (test code = Stomatocyte) slight [place] [address]-02-21 12:50:00 Test Item Value Reference Range Interpretation Comments WBC X 10x3 (test code = WBC X 10x3) 8.7 3.7-10.4 [place] [address]-02-21 12:50:00 Test Item Value Reference Range Interpretation Comments RBC X 10x6 (test code = RBC X 10x6) 3.56 4.20-5.40 [place] [address]-02-21 12:50:00 Test Item Value Reference Range Interpretation Comments Hgb (test code = Hgb) 10.4 12.0-16.0 [place] [address]-02-21 12:50:00 Test Item Value Reference Range Interpretation Comments Hct (test code = Hct) 32.3 36.0-48.0 [place] [address]-02-21 12:50:00 Test Item Value Reference Range Interpretation Comments MCV (test code = MCV) 90.8 80.0-98.0 [place] [address]-02-21 12:50:00 Test Item Value Reference Range Interpretation Comments MCH (test code = MCH) 29.3 pg 27.0-31.0 [facility]39 12:50:00 Test Item Value Reference Range Interpretation Comments MCHC (test code = MCHC) 32.2 32.0-36.0 [place] 391173-02-21 12:50:00 Test Item Value Reference Range Interpretation Comments RDW (test code = RDW) 13.7 11.5-14.5 [place] 391173-02-21 12:50:00 Test Item Value Reference Range Interpretation Comments Platelet (test code = Platelet) 137 133-450 [facility]AllenDmnegksUQIDREXFSH3377-80-82 12:50:00 Test Item Value Reference Range Interpretation Comments MPV (test code = MPV) 7.9 7.4-10.4 [place] 391173-02-21 12:50:00 Test Item Value Reference Range Interpretation Comments ACT (TEG) Rapid (test code = ACT (TEG) 113 s 86-118 Rapid) [place] 391173-02-21 12:50:00 Test Item Value Reference Range Interpretation Comments Split Point Rapid (test code = Split 0.6 min Point Rapid) [facility]AllenGruaezkUTPUHQFGKY7048-49-26 12:50:00 Test Item Value Reference Range Interpretation Comments R-time Rapid (test code = R-time 0.7 min 0.4-0.7 Rapid) [place] [address]-02-21 12:50:00 Test Item Value Reference Range Interpretation Comments K-time Rapid (test code = K-time 1.1 min 0.6-2.3 Rapid) [place] [address]-02-21 12:50:00 Test Item Value Reference Range Interpretation Comments Angle Rapid (test code = Angle 78 degrees 64-80 Rapid) [place] [address]-02-21 12:50:00 Test Item Value Reference Range Interpretation Comments Max Amplitude Rapid (test code = Max 65 mm 52-71 Amplitude Rapid) [place] 391173-02-21 12:50:00 Test Item Value Reference Range Interpretation Comments G-value Rapid (test code = G-value 9.2 5.0-11.6 Rapid) [place] 391173-02-21 12:50:00 Test Item Value Reference Range Interpretation Comments Estimated % Lysis Rapid 0.0 See_Comment [Au tomated message] The (test code = Estimated syste m which generated % Lysis Rapid) this result t ransmitted reference range : <=7.5. The reference r christiano was not used to int erpret this result as normal/abnormal . [facility] McAllenWjdmgnzMIVYSMRMPD3251-07-37 12:50:00 Test Item Value Reference Range Interpretation Comments Plt Morph (test code = See Note 1(11/21/22 Plt Morph) 6:50 AM) [place] 391173-02-21 12:50:00 Test Item Value Reference Range Interpretation Comments Segs (test code = Segs) 64.1 45.0-75.0 [place] 391173-02-21 12:50:00 Test Item Value Reference Range Interpretation Comments Lymphocytes (test code = Lymphocytes) 22.0 20.0-40.0 [place] 391173-02-21 12:50:00 Test Item Value Reference Range Interpretation Comments Monocytes (test code = Monocytes) 8.3 2.0-12.0 [place] 391173-02-21 12:50:00 Test Item Value Reference Range Interpretation Comments Eosinophils (test code = 4.7 See_Comment [A utomated message] The Eosinophils) system which ge nerated this result tra nsmitted reference range : <=4.0. The reference r christiano was not used to int erpret this result as normal/abnormal . [facility] McAllenEpttyfzBSXVFAFQLM4353-89-92 12:50:00 Test Item Value Reference Range Interpretation Comments Basophils (test code = 0.9 See_Comment [Aut omated message] The Basophils) system which ge nerated this result tra nsmitted reference range : <=1.0. The reference r christiano was not used to int erpret this result as normal/abnormal . [facility] McAllenLnjeysoPFHJWCMXNW4655-29-45 12:50:00 Test Item Value Reference Range Interpretation Comments Neutrophils # (test code = Neutrophils 5.6 1.5-8.1 #) [place] 391173-02-21 12:50:00 Test Item Value Reference Range Interpretation Comments Lymphocytes # (test code = Lymphocytes 1.9 1.0-5.5 #) [place] 391173-02-21 12:50:00 Test Item Value Reference Range Interpretation Comments Monocytes # (test code 0.7 See_Comment [Aut omated message] The = Monocytes #) system which generated this result tra nsmitted reference range : <=0.8. The reference r christiano was not used to int erpret this result as normal/abnormal . [facility] TvghiluMUIECTUOHC3819-56-76 12:50:00 Test Item Value Reference Range Interpretation Comments Eosinophils # (test code 0.4 See_Comment [A utomated message] The = Eosinophils #) system whic h generated this result tra nsmitted reference range : <=0.5. The reference r christiano was not used to int erpret this result as normal/abnormal . [facility] DetjhgpUGEXSLUIWK5255-52-74 12:50:00 Test Item Value Reference Range Interpretation Comments Basophils # (test code 0.1 See_Comment [Aut omated message] The = Basophils #) system which generated this result tra nsmitted reference range : <=0.2. The reference r christiano was not used to int erpret this result as normal/abnormal . [facility] FjzibmhRVBKTPHRTX7965-83-44 12:50:00 Test Item Value Reference Range Interpretation Comments Stomatocyte (test code = Stomatocyte) slight [facility]wayAbtvoneWSVPGMBWSS9090-92-78 12:50:00 Test Item Value Reference Range Interpretation Comments Ethanol Lvl (test code = Ethanol Lvl) no gt [facility] PoxkuezMCLRILYFKN2591-98-79 12:50:00 Test Item Value Reference Range Interpretation Comments Etoh (%) (test code = Etoh (%)) no gt [facility] [employer] [id number] 12:50:00 Test Item Value Reference Range Interpretation Comments ABO/Rh (test code = ABO/Rh) O POS Echo it [id number] 12:50:00 Test Item Value Reference Range Interpretation Comments Antibody Scrn (test Negative (11/21/22 6:50 code = Antibody Scrn) AM) [facility] [employer] [id number] 12:50:00 Test Item Value Reference Range Interpretation Comments ABO/Rh (test code = ABO/Rh) O POS Echo it [id number] 12:50:00 Test Item Value Reference Range Interpretation Comments Antibody Scrn (test Negative (11/21/22 6:50 code = Antibody Scrn) AM) [facility] [id number] 12:50:00 Test Item Value Reference Range Interpretation Comments HS Troponin I (test code = HS Troponin 15 I) [facility]2023-02-21 12:50:00 Test Item Value Reference Range Interpretation Comments Glucose Lvl (test code = Glucose Lvl) 99 70-99 [place] 468413-02-21 12:50:00 Test Item Value Reference Range Interpretation Comments BUN (test code = BUN) 38 7-22 [place] 468413-02-21 12:50:00 Test Item Value Reference Range Interpretation Comments Creatinine Lvl (test code = Creatinine 2.38 0.50-1.40 Lvl) [facility]2023-02-21 12:50:00 Test Item Value Reference Range Interpretation Comments Sodium Lvl (test code = Sodium Lvl) 140 135-145 [facility]2023-02-21 12:50:00 Test Item Value Reference Range Interpretation Comments Potassium Lvl (test code = Potassium 3.9 3.5-5.1 Lvl) [facility]2023-02-21 12:50:00 Test Item Value Reference Range Interpretation Comments Chloride Lvl (test code = Chloride Lvl) 107 95-109 [facility]2023-02-21 12:50:00 Test Item Value Reference Range Interpretation Comments CO2 (test code = CO2) 27 24-32 [facility]2023-02-21 12:50:00 Test Item Value Reference Range Interpretation Comments Calcium Lvl (test code = Calcium Lvl) 8.1 8.5-10.5 [facility]2023-02-21 12:50:00 Test Item Value Reference Range Interpretation Comments AGAP (test code = AGAP) 9.9 10.0-20.0 [facility]2023-02-21 12:50:00 Test Item Value Reference Range Interpretation Comments eGFR (test code = eGFR) 20 [facility]2023-02-21 12:50:00 Test Item Value Reference Range Interpretation Comments Lactic Acid Lvl (test code = Lactic 0.7 0.5-2.2 Acid Lvl) [facility]2023-02-21 12:50:00 Test Item Value Reference Range Interpretation Comments Total Protein (test code = Total 6.1 6.4-8.4 Protein) [place] [address]-02-21 12:50:00 Test Item Value Reference Range Interpretation Comments Albumin Lvl (test code = Albumin Lvl) 2.9 3.5-5.0 [place] [address]-02-21 12:50:00 Test Item Value Reference Range Interpretation Comments Globulin (test code = Globulin) 3.2 2.7-4.2 [place] [address]-02-21 12:50:00 Test Item Value Reference Range Interpretation Comments A/G Ratio (test code = A/G Ratio) 0.9 1 0.7-1.6 [place] [address]-02-21 12:50:00 Test Item Value Reference Range Interpretation Comments ALT (test code = ALT) 16 See_Comment [Auto mated message] The system which ge nerated this result transmit sheba reference range : <=65. The reference range was not used to interpr et this result as edy l/abnormal. [place] [address]-02-21 12:50:00 Test Item Value Reference Range Interpretation Comments AST (test code = AST) 15 See_Comment [Auto mated message] The system which ge nerated this result transmit sheba reference range : <=37. The reference range was not used to interpr et this result as edy l/abnormal. [place] [address]-02-21 12:50:00 Test Item Value Reference Range Interpretation Comments Alk Phos (test code = Alk Phos) 96 39-136 [place] [address]-02-21 12:50:00 Test Item Value Reference Range Interpretation Comments Bili Total (test code = Bili Total) 0.2 0.2-1.3 [place] [address]-02-21 12:50:00 Test Item Value Reference Range Interpretation Comments Bili Direct (test code no gt See_Comment [Aut omated message] The = Bili Direct) system which generated this result tra nsmitted reference range : <=0.3. The reference r christiano was not used to int erpret this result as edy l/abnormal. [facility] [id number] 12:50:00 Test Item Value Reference Range Interpretation Comments Bili Indirect Unable to See_Comment [Automated (test code = Bili Calculate message] T he system Indirect) which generated this result transmitted reference range : <=1.0. The reference range was not used to interpret this result as normal/abnormal . [facility]bergBkhxhrmCYSHKJIMW9560-10-10 12:50:00 Test Item Value Reference Range Interpretation Comments Ethanol Lvl (test code = Ethanol Lvl) no gt [facility] KlebergZvadepcAQTJLBNJW0772-04-92 12:50:00 Test Item Value Reference Range Interpretation Comments Etoh (%) (test code = Etoh (%)) no gt [facility] KlebergOnxiyuaCRHGKVOMX9411-20-31 12:50:00 Test Item Value Reference Range Interpretation Comments Lactic Acid Lvl (test code = Lactic 0.7 0.5-2.2 Acid Lvl) [facility] KlebergLctrkrdSWYLJIVYG4342-54-28 12:50:00 Test Item Value Reference Range Interpretation Comments Total Protein (test code = Total 6.1 6.4-8.4 Protein) [facility] KlebergKzxvmjnXAEFBFSME5302-47-23 12:50:00 Test Item Value Reference Range Interpretation Comments Albumin Lvl (test code = Albumin Lvl) 2.9 3.5-5.0 [facility] KlebergReaqbmkJBXLKIWMU1635-13-92 12:50:00 Test Item Value Reference Range Interpretation Comments Globulin (test code = Globulin) 3.2 2.7-4.2 [facility] KlebergFwzxkojSWVQOBEFD0637-25-30 12:50:00 Test Item Value Reference Range Interpretation Comments A/G Ratio (test code = A/G Ratio) 0.9 1 0.7-1.6 [place] 647753-02-21 12:50:00 Test Item Value Reference Range Interpretation Comments ALT (test code = ALT) 16 See_Comment [Auto mated message] The system which ge nerated this result transmit sheba reference range : <=65. The reference range was not used to interpr et this result as edy l/abnormal. [facility] KlebergScvmbeeNINSIXCRW0925-57-36 12:50:00 Test Item Value Reference Range Interpretation Comments AST (test code = AST) 15 See_Comment [Auto mated message] The system which ge nerated this result transmit sheba reference range : <=37. The reference range was not used to interpr et this result as edy l/abnormal. [facility] KlebergQgcfjwsDDHNIDDZH4431-97-18 12:50:00 Test Item Value Reference Range Interpretation Comments Alk Phos (test code = Alk Phos) 96 39-136 [facility] KlebergWdnkenuRARVPQCOY4606-17-83 12:50:00 Test Item Value Reference Range Interpretation Comments Bili Total (test code = Bili Total) 0.2 0.2-1.3 [facility] KlebergAhmqezrXMFQKNLXF1290-87-21 12:50:00 Test Item Value Reference Range Interpretation Comments Bili Direct (test code no gt See_Comment [Aut omated message] The = Bili Direct) system which generated this result tra nsmitted reference range : <=0.3. The reference r christiano was not used to int erpret this result as edy l/abnormal. [facility] KlebergCjvripuECEFETHIA4430-70-96 12:50:00 Test Item Value Reference Range Interpretation Comments Bili Indirect Unable to See_Comment [Automated (test code = Bili Calculate message] T he system Indirect) which generated this result transmitted reference range : <=1.0. The reference range was not used to interpret this result as normal/abnormal . [facility] CenterEffttrfVOPFOZWFT7704-81-06 12:50:00 Test Item Value Reference Range Interpretation Comments HS Troponin I (test code = HS Troponin 15 I) [facility] KlebergFmsvphqKPSFDLWDM3166-92-43 12:50:00 Test Item Value Reference Range Interpretation Comments pH Justin (test code = pH Justin) 7.35 1 7.28-7.42 [facility] CenterCwqwouaKVKGOBZFU5390-06-88 12:50:00 Test Item Value Reference Range Interpretation Comments pCO2 Justin (test code = pCO2 Justin) 55 38-52 [facility] KlebergWwylvxaYJYKTWYHV7863-83-96 12:50:00 Test Item Value Reference Range Interpretation Comments pO2 Justin (test code = pO2 Justin) 43 20-49 [facility] KlebergEhdgeyvRPBCEOQSA3021-67-59 12:50:00 Test Item Value Reference Range Interpretation Comments HCO3 Justin (test code = HCO3 Justin) 30 22-26 [facility] KlebergOjclvrjRKHKJBFKF7418-27-29 12:50:00 Test Item Value Reference Range Interpretation Comments BE Justin (test code = BE Justin) 3 -2-2 [facility] KlebergPagwftnUNSGUNIXH4934-27-32 12:50:00 Test Item Value Reference Range Interpretation Comments O2 Sat Justin (calc) (test code = O2 Sat 75.9 40.0-70.0 Justin (calc)) [facility] KlebergThivsvaEUKNRCROT9689-85-73 12:50:00 Test Item Value Reference Range Interpretation Comments Temp Justin (test code = Temp Justin) 37.0 [place] 391173-02-21 12:50:00 Test Item Value Reference Range Interpretation Comments ACT (TEG) Rapid (test code = ACT (TEG) 113 s 86-118 Rapid) [place] 391173-02-21 12:50:00 Test Item Value Reference Range Interpretation Comments Split Point Rapid (test code = Split 0.6 min Point Rapid) [place] 391173-02-21 12:50:00 Test Item Value Reference Range Interpretation Comments R-time Rapid (test code = R-time 0.7 min 0.4-0.7 Rapid) [place] 391173-02-21 12:50:00 Test Item Value Reference Range Interpretation Comments K-time Rapid (test code = K-time 1.1 min 0.6-2.3 Rapid) [place] 391173-02-21 12:50:00 Test Item Value Reference Range Interpretation Comments Angle Rapid (test code = Angle 78 degrees 64-80 Rapid) [facility] McAllenEilslmyUZZINMHJWL4842-10-79 12:50:00 Test Item Value Reference Range Interpretation Comments Max Amplitude Rapid (test code = Max 65 mm 52-71 Amplitude Rapid) [place] 391173-02-21 12:50:00 Test Item Value Reference Range Interpretation Comments G-value Rapid (test code = G-value 9.2 5.0-11.6 Rapid) [place] 391173-02-21 12:50:00 Test Item Value Reference Range Interpretation Comments Estimated % Lysis Rapid 0.0 See_Comment [Au tomated message] The (test code = Estimated syste m which generated % Lysis Rapid) this result t ransmitted reference range : <=7.5. The reference r christiano was not used to int erpret this result as normal/abnormal . [place] 391173-02-21 12:50:00 Test Item Value Reference Range Interpretation Comments Plt Morph (test code = See Note 1(11/21/22 Plt Morph) 6:50 AM) [place] 391173-02-21 12:50:00 Test Item Value Reference Range Interpretation Comments Stomatocyte (test code = Stomatocyte) slight [place] [address]-02-21 12:50:00 Test Item Value Reference Range Interpretation Comments WBC X 10x3 (test code = WBC X 10x3) 8.7 3.7-10.4 [place] [address]-02-21 12:50:00 Test Item Value Reference Range Interpretation Comments RBC X 10x6 (test code = RBC X 10x6) 3.56 4.20-5.40 [place] [address]-02-21 12:50:00 Test Item Value Reference Range Interpretation Comments Hgb (test code = Hgb) 10.4 12.0-16.0 [place] [address]-02-21 12:50:00 Test Item Value Reference Range Interpretation Comments Hct (test code = Hct) 32.3 36.0-48.0 [place] [address]-02-21 12:50:00 Test Item Value Reference Range Interpretation Comments MCV (test code = MCV) 90.8 80.0-98.0 [place] [address]-02-21 12:50:00 Test Item Value Reference Range Interpretation Comments MCH (test code = MCH) 29.3 pg 27.0-31.0 [place] [address]-02-21 12:50:00 Test Item Value Reference Range Interpretation Comments MCHC (test code = MCHC) 32.2 32.0-36.0 [place] [address]-02-21 12:50:00 Test Item Value Reference Range Interpretation Comments RDW (test code = RDW) 13.7 11.5-14.5 [place] [address]-02-21 12:50:00 Test Item Value Reference Range Interpretation Comments Platelet (test code = Platelet) 137 133-450 [place] [address]-02-21 12:50:00 Test Item Value Reference Range Interpretation Comments MPV (test code = MPV) 7.9 7.4-10.4 [place] [address]-02-21 12:50:00 Test Item Value Reference Range Interpretation Comments ACT (TEG) Rapid (test code = ACT (TEG) 113 s 86-118 Rapid) [place] 391173-02-21 12:50:00 Test Item Value Reference Range Interpretation Comments Split Point Rapid (test code = Split 0.6 min Point Rapid) [place] [address]-02-21 12:50:00 Test Item Value Reference Range Interpretation Comments R-time Rapid (test code = R-time 0.7 min 0.4-0.7 Rapid) [place] [address]-02-21 12:50:00 Test Item Value Reference Range Interpretation Comments K-time Rapid (test code = K-time 1.1 min 0.6-2.3 Rapid) [place] [address]-02-21 12:50:00 Test Item Value Reference Range Interpretation Comments Angle Rapid (test code = Angle 78 degrees 64-80 Rapid) [place] [address]-02-21 12:50:00 Test Item Value Reference Range Interpretation Comments Max Amplitude Rapid (test code = Max 65 mm 52-71 Amplitude Rapid) [place] [address]-02-21 12:50:00 Test Item Value Reference Range Interpretation Comments G-value Rapid (test code = G-value 9.2 5.0-11.6 Rapid) [place] [address]-02-21 12:50:00 Test Item Value Reference Range Interpretation Comments Estimated % Lysis Rapid 0.0 See_Comment [Au tomated message] The (test code = Estimated syste m which generated % Lysis Rapid) this result t ransmitted reference range : <=7.5. The reference r christiano was not used to int erpret this result as normal/abnormal . [place] 391173-02-21 12:50:00 Test Item Value Reference Range Interpretation Comments Plt Morph (test code = See Note 1(11/21/22 Plt Morph) 6:50 AM) [place] [address]-02-21 12:50:00 Test Item Value Reference Range Interpretation Comments Segs (test code = Segs) 64.1 45.0-75.0 [place] [address]-02-21 12:50:00 Test Item Value Reference Range Interpretation Comments Lymphocytes (test code = Lymphocytes) 22.0 20.0-40.0 [place] [address]-02-21 12:50:00 Test Item Value Reference Range Interpretation Comments Monocytes (test code = Monocytes) 8.3 2.0-12.0 [place] [address]-02-21 12:50:00 Test Item Value Reference Range Interpretation Comments Eosinophils (test code = 4.7 See_Comment [A utomated message] The Eosinophils) system which ge nerated this result tra nsmitted reference range : <=4.0. The reference r christiano was not used to int erpret this result as normal/abnormal . [place] 391173-02-21 12:50:00 Test Item Value Reference Range Interpretation Comments Basophils (test code = 0.9 See_Comment [Aut omated message] The Basophils) system which ge nerated this result tra nsmitted reference range : <=1.0. The reference r christiano was not used to int erpret this result as normal/abnormal . [place] 391173-02-21 12:50:00 Test Item Value Reference Range Interpretation Comments Neutrophils # (test code = Neutrophils 5.6 1.5-8.1 #) [place] 391173-02-21 12:50:00 Test Item Value Reference Range Interpretation Comments Lymphocytes # (test code = Lymphocytes 1.9 1.0-5.5 #) [place] 391173-02-21 12:50:00 Test Item Value Reference Range Interpretation Comments Monocytes # (test code 0.7 See_Comment [Aut omated message] The = Monocytes #) system which generated this result tra nsmitted reference range : <=0.8. The reference r christiano was not used to int erpret this result as normal/abnormal . [place] 391173-02-21 12:50:00 Test Item Value Reference Range Interpretation Comments Eosinophils # (test code 0.4 See_Comment [A utomated message] The = Eosinophils #) system whic h generated this result tra nsmitted reference range : <=0.5. The reference r christiano was not used to int erpret this result as normal/abnormal . [place] 391173-02-21 12:50:00 Test Item Value Reference Range Interpretation Comments Basophils # (test code 0.1 See_Comment [Aut omated message] The = Basophils #) system which generated this result tra nsmitted reference range : <=0.2. The reference r christiano was not used to int erpret this result as normal/abnormal . [place] 391173-02-21 12:50:00 Test Item Value Reference Range Interpretation Comments Stomatocyte (test code = Stomatocyte) slight [facility] CenterUybyrlrRKBZLQIPRB9662-00-38 12:50:00 Test Item Value Reference Range Interpretation Comments Ethanol Lvl (test code = Ethanol Lvl) no gt [facility] EqheosiMHNJJOGCUX2482-69-21 12:50:00 Test Item Value Reference Range Interpretation Comments Etoh (%) (test code = Etoh (%)) no gt [facility] [employer] [id number] 12:50:00 Test Item Value Reference Range Interpretation Comments ABO/Rh (test code = ABO/Rh) O POS [facility] [employer] [id number] 12:50:00 Test Item Value Reference Range Interpretation Comments Antibody Scrn (test Negative (11/21/22 6:50 code = Antibody Scrn) AM) [facility] [employer] [id number] 12:50:00 Test Item Value Reference Range Interpretation Comments ABO/Rh (test code = ABO/Rh) O POS [facility] [employer] [id number] 12:50:00 Test Item Value Reference Range Interpretation Comments Antibody Scrn (test Negative (11/21/22 6:50 code = Antibody Scrn) AM) [facility] [facility] [employer] [id number] 12:50:00 Test Item Value Reference Range Interpretation Comments HS Troponin I (test code = HS Troponin 15 I) [facility] [employer] [id number] 12:50:00 Test Item Value Reference Range Interpretation Comments Glucose Lvl (test code = Glucose Lvl) 99 70-99 [facility] [employer]2023-02-21 12:50:00 Test Item Value Reference Range Interpretation Comments BUN (test code = BUN) 38 7-22 [facility] [employer]2023-02-21 12:50:00 Test Item Value Reference Range Interpretation Comments Creatinine Lvl (test code = Creatinine 2.38 0.50-1.40 Lvl) [facility] [employer]2023-02-21 12:50:00 Test Item Value Reference Range Interpretation Comments Sodium Lvl (test code = Sodium Lvl) 140 135-145 [facility] [employer]2023-02-21 12:50:00 Test Item Value Reference Range Interpretation Comments Potassium Lvl (test code = Potassium 3.9 3.5-5.1 Lvl) [place] 468413-02-21 12:50:00 Test Item Value Reference Range Interpretation Comments Chloride Lvl (test code = Chloride Lvl) 107 95-109 [place] [address]-02-21 12:50:00 Test Item Value Reference Range Interpretation Comments CO2 (test code = CO2) 27 24-32 [place] [address]-02-21 12:50:00 Test Item Value Reference Range Interpretation Comments Calcium Lvl (test code = Calcium Lvl) 8.1 8.5-10.5 [place] 468413-02-21 12:50:00 Test Item Value Reference Range Interpretation Comments AGAP (test code = AGAP) 9.9 10.0-20.0 [place] [address]-02-21 12:50:00 Test Item Value Reference Range Interpretation Comments eGFR (test code = eGFR) 20 [place] 468413-02-21 12:50:00 Test Item Value Reference Range Interpretation Comments Lactic Acid Lvl (test code = Lactic 0.7 0.5-2.2 Acid Lvl) [place] 468413-02-21 12:50:00 Test Item Value Reference Range Interpretation Comments Total Protein (test code = Total 6.1 6.4-8.4 Protein) [place] 468413-02-21 12:50:00 Test Item Value Reference Range Interpretation Comments Albumin Lvl (test code = Albumin Lvl) 2.9 3.5-5.0 [place] [address]-02-21 12:50:00 Test Item Value Reference Range Interpretation Comments Globulin (test code = Globulin) 3.2 2.7-4.2 [place] [address]-02-21 12:50:00 Test Item Value Reference Range Interpretation Comments A/G Ratio (test code = A/G Ratio) 0.9 1 0.7-1.6 [place] [address]-02-21 12:50:00 Test Item Value Reference Range Interpretation Comments ALT (test code = ALT) 16 See_Comment [Auto mated message] The system which ge nerated this result transmit sheba reference range : <=65. The reference range was not used to interpr et this result as edy l/abnormal. [place] 468413-02-21 12:50:00 Test Item Value Reference Range Interpretation Comments AST (test code = AST) 15 See_Comment [Auto mated message] The system which ge nerated this result transmit sheba reference range : <=37. The reference range was not used to interpr et this result as edy l/abnormal. [facility] [id number] 12:50:00 Test Item Value Reference Range Interpretation Comments Alk Phos (test code = Alk Phos) 96 39-136 [facility] [id number] 12:50:00 Test Item Value Reference Range Interpretation Comments Bili Total (test code = Bili Total) 0.2 0.2-1.3 [facility] [id number] 12:50:00 Test Item Value Reference Range Interpretation Comments Bili Direct (test code no gt See_Comment [Aut omated message] The = Bili Direct) system which generated this result tra nsmitted reference range : <=0.3. The reference r christiano was not used to int erpret this result as edy l/abnormal. [facility] [id number] 12:50:00 Test Item Value Reference Range Interpretation Comments Bili Indirect Unable to See_Comment [Automated (test code = Bili Calculate message] T he system Indirect) which generated this result transmitted reference range : <=1.0. The reference range was not used to interpret this result as normal/abnormal . [facility] CenterUbwyemsCPINRZQRS8906-17-93 12:50:00 Test Item Value Reference Range Interpretation Comments Ethanol Lvl (test code = Ethanol Lvl) no gt [facility] CenterRifbmqlTQTZRUZBZ6646-89-11 12:50:00 Test Item Value Reference Range Interpretation Comments Etoh (%) (test code = Etoh (%)) no gt [facility] CenterGubgvraBUODHXXJK7295-33-45 12:50:00 Test Item Value Reference Range Interpretation Comments Lactic Acid Lvl (test code = Lactic 0.7 0.5-2.2 Acid Lvl) [place] [address]-02-21 12:50:00 Test Item Value Reference Range Interpretation Comments Total Protein (test code = Total 6.1 6.4-8.4 Protein) [place] [address]-02-21 12:50:00 Test Item Value Reference Range Interpretation Comments Albumin Lvl (test code = Albumin Lvl) 2.9 3.5-5.0 [facility] CenterTasevizJXLPAKVJE8972-49-71 12:50:00 Test Item Value Reference Range Interpretation Comments Globulin (test code = Globulin) 3.2 2.7-4.2 [place] 647753-02-21 12:50:00 Test Item Value Reference Range Interpretation Comments A/G Ratio (test code = A/G Ratio) 0.9 1 0.7-1.6 [place] 647753-02-21 12:50:00 Test Item Value Reference Range Interpretation Comments ALT (test code = ALT) 16 See_Comment [Auto mated message] The system which ge nerated this result transmit sheba reference range : <=65. The reference range was not used to interpr et this result as edy l/abnormal. [facility]wayXbhwbwiXRBJRBVNC4542-07-27 12:50:00 Test Item Value Reference Range Interpretation Comments AST (test code = AST) 15 See_Comment [Auto mated message] The system which ge nerated this result transmit sheba reference range : <=37. The reference range was not used to interpr et this result as edy l/abnormal. [facility] ParkwayGvqwbjvCWTFUUBVT4779-24-90 12:50:00 Test Item Value Reference Range Interpretation Comments Alk Phos (test code = Alk Phos) 96 39-136 [facility] ParkwayHswgnagRYAJZMVOA1364-49-30 12:50:00 Test Item Value Reference Range Interpretation Comments Bili Total (test code = Bili Total) 0.2 0.2-1.3 [facility] ParkwayZruqbnoDXAMKRTRN9417-88-53 12:50:00 Test Item Value Reference Range Interpretation Comments Bili Direct (test code no gt See_Comment [Aut omated message] The = Bili Direct) system which generated this result tra nsmitted reference range : <=0.3. The reference r christiano was not used to int erpret this result as edy l/abnormal. [facility] ParkwayAeipyacUUUMKWWDA8645-13-15 12:50:00 Test Item Value Reference Range Interpretation Comments Bili Indirect Unable to See_Comment [Automated (test code = Bili Calculate message] T he system Indirect) which generated this result transmitted reference range : <=1.0. The reference range was not used to interpret this result as normal/abnormal . [facility] ParkwayNgkobnaWZXJKOACL2912-06-74 12:50:00 Test Item Value Reference Range Interpretation Comments HS Troponin I (test code = HS Troponin 15 I) [facility]XprsrqvITYWVTZCI1067-94-53 12:50:00 Test Item Value Reference Range Interpretation Comments pH Justin (test code = pH Justin) 7.35 1 7.28-7.42 [place] [address]-02-21 12:50:00 Test Item Value Reference Range Interpretation Comments pCO2 Justin (test code = pCO2 Justin) 55 38-52 [place] 647753-02-21 12:50:00 Test Item Value Reference Range Interpretation Comments pO2 Justin (test code = pO2 Justin) 43 20-49 [place] 647753-02-21 12:50:00 Test Item Value Reference Range Interpretation Comments HCO3 Justin (test code = HCO3 Justin) 30 22-26 [place] [address]-02-21 12:50:00 Test Item Value Reference Range Interpretation Comments BE Justin (test code = BE Justin) 3 -2-2 [place] 647753-02-21 12:50:00 Test Item Value Reference Range Interpretation Comments O2 Sat Justin (calc) (test code = O2 Sat 75.9 40.0-70.0 Justin (calc)) [facility]bergGnqbedgSWFDZCDXE4758-58-02 12:50:00 Test Item Value Reference Range Interpretation Comments Temp Justin (test code = Temp Justin) 37.0 [place] 391173-02-21 12:50:00 Test Item Value Reference Range Interpretation Comments ACT (TEG) Rapid (test code = ACT (TEG) 113 s 86-118 Rapid) [place] 391173-02-21 12:50:00 Test Item Value Reference Range Interpretation Comments Split Point Rapid (test code = Split 0.6 min Point Rapid) [place] 391173-02-21 12:50:00 Test Item Value Reference Range Interpretation Comments R-time Rapid (test code = R-time 0.7 min 0.4-0.7 Rapid) [place] 391173-02-21 12:50:00 Test Item Value Reference Range Interpretation Comments K-time Rapid (test code = K-time 1.1 min 0.6-2.3 Rapid) [place] 391173-02-21 12:50:00 Test Item Value Reference Range Interpretation Comments Angle Rapid (test code = Angle 78 degrees 64-80 Rapid) [place] [address]-02-21 12:50:00 Test Item Value Reference Range Interpretation Comments Max Amplitude Rapid (test code = Max 65 mm 52-71 Amplitude Rapid) [place] [address]-02-21 12:50:00 Test Item Value Reference Range Interpretation Comments G-value Rapid (test code = G-value 9.2 5.0-11.6 Rapid) [place] [address]-02-21 12:50:00 Test Item Value Reference Range Interpretation Comments Estimated % Lysis Rapid 0.0 See_Comment [Au tomated message] The (test code = Estimated syste m which generated % Lysis Rapid) this result t ransmitted reference range : <=7.5. The reference r christiano was not used to int erpret this result as normal/abnormal . [place] 391173-02-21 12:50:00 Test Item Value Reference Range Interpretation Comments Plt Morph (test code = See Note 1(11/21/22 Plt Morph) 6:50 AM) [place] [address]-02-21 12:50:00 Test Item Value Reference Range Interpretation Comments Stomatocyte (test code = Stomatocyte) slight [place] [address]-02-21 12:50:00 Test Item Value Reference Range Interpretation Comments WBC X 10x3 (test code = WBC X 10x3) 8.7 3.7-10.4 [place] [address]-02-21 12:50:00 Test Item Value Reference Range Interpretation Comments RBC X 10x6 (test code = RBC X 10x6) 3.56 4.20-5.40 [place] [address]-02-21 12:50:00 Test Item Value Reference Range Interpretation Comments Hgb (test code = Hgb) 10.4 12.0-16.0 [place] [address]-02-21 12:50:00 Test Item Value Reference Range Interpretation Comments Hct (test code = Hct) 32.3 36.0-48.0 [place] [address]-02-21 12:50:00 Test Item Value Reference Range Interpretation Comments MCV (test code = MCV) 90.8 80.0-98.0 [place] [address]-02-21 12:50:00 Test Item Value Reference Range Interpretation Comments MCH (test code = MCH) 29.3 pg 27.0-31.0 [place] 391173-02-21 12:50:00 Test Item Value Reference Range Interpretation Comments MCHC (test code = MCHC) 32.2 32.0-36.0 [facility]AllenCsydzsxURBIDTWVRF5285-58-86 12:50:00 Test Item Value Reference Range Interpretation Comments RDW (test code = RDW) 13.7 11.5-14.5 [place] 391173-02-21 12:50:00 Test Item Value Reference Range Interpretation Comments Platelet (test code = Platelet) 137 133-450 [place] 391173-02-21 12:50:00 Test Item Value Reference Range Interpretation Comments MPV (test code = MPV) 7.9 7.4-10.4 [place] 391173-02-21 12:50:00 Test Item Value Reference Range Interpretation Comments ACT (TEG) Rapid (test code = ACT (TEG) 113 s 86-118 Rapid) [place] 391173-02-21 12:50:00 Test Item Value Reference Range Interpretation Comments Split Point Rapid (test code = Split 0.6 min Point Rapid) [place] 391173-02-21 12:50:00 Test Item Value Reference Range Interpretation Comments R-time Rapid (test code = R-time 0.7 min 0.4-0.7 Rapid) [place] [address]-02-21 12:50:00 Test Item Value Reference Range Interpretation Comments K-time Rapid (test code = K-time 1.1 min 0.6-2.3 Rapid) [place] 391173-02-21 12:50:00 Test Item Value Reference Range Interpretation Comments Angle Rapid (test code = Angle 78 degrees 64-80 Rapid) [place] [address]-02-21 12:50:00 Test Item Value Reference Range Interpretation Comments Max Amplitude Rapid (test code = Max 65 mm 52-71 Amplitude Rapid) [place] [address]-02-21 12:50:00 Test Item Value Reference Range Interpretation Comments G-value Rapid (test code = G-value 9.2 5.0-11.6 Rapid) [place] 391173-02-21 12:50:00 Test Item Value Reference Range Interpretation Comments Estimated % Lysis Rapid 0.0 See_Comment [Au tomated message] The (test code = Estimated syste m which generated % Lysis Rapid) this result t ransmitted reference range : <=7.5. The reference r christiano was not used to int erpret this result as normal/abnormal . [facility] McAllenJwfpvijGLFHQZHZXX1543-68-42 12:50:00 Test Item Value Reference Range Interpretation Comments Plt Morph (test code = See Note 1(11/21/22 Plt Morph) 6:50 AM) [place] 391173-02-21 12:50:00 Test Item Value Reference Range Interpretation Comments Segs (test code = Segs) 64.1 45.0-75.0 [place] 391173-02-21 12:50:00 Test Item Value Reference Range Interpretation Comments Lymphocytes (test code = Lymphocytes) 22.0 20.0-40.0 [place] 391173-02-21 12:50:00 Test Item Value Reference Range Interpretation Comments Monocytes (test code = Monocytes) 8.3 2.0-12.0 [place] 391173-02-21 12:50:00 Test Item Value Reference Range Interpretation Comments Eosinophils (test code = 4.7 See_Comment [A utomated message] The Eosinophils) system which ge nerated this result tra nsmitted reference range : <=4.0. The reference r christiano was not used to int erpret this result as normal/abnormal . [facility] McAllenDygdgewIZKJPODJZC0917-10-34 12:50:00 Test Item Value Reference Range Interpretation Comments Basophils (test code = 0.9 See_Comment [Aut omated message] The Basophils) system which ge nerated this result tra nsmitted reference range : <=1.0. The reference r christiano was not used to int erpret this result as normal/abnormal . [place] 391173-02-21 12:50:00 Test Item Value Reference Range Interpretation Comments Neutrophils # (test code = Neutrophils 5.6 1.5-8.1 #) [place] 391173-02-21 12:50:00 Test Item Value Reference Range Interpretation Comments Lymphocytes # (test code = Lymphocytes 1.9 1.0-5.5 #) [place] 391173-02-21 12:50:00 Test Item Value Reference Range Interpretation Comments Monocytes # (test code 0.7 See_Comment [Aut omated message] The = Monocytes #) system which generated this result tra nsmitted reference range : <=0.8. The reference r christiano was not used to int erpret this result as normal/abnormal . [facility] DrllultULDSFPQKFT8706-19-41 12:50:00 Test Item Value Reference Range Interpretation Comments Eosinophils # (test code 0.4 See_Comment [A utomated message] The = Eosinophils #) system whic h generated this result tra nsmitted reference range : <=0.5. The reference r christiano was not used to int erpret this result as normal/abnormal . [facility] XughrzdTPHCDLYORW1402-65-73 12:50:00 Test Item Value Reference Range Interpretation Comments Basophils # (test code 0.1 See_Comment [Aut omated message] The = Basophils #) system which generated this result tra nsmitted reference range : <=0.2. The reference r christiano was not used to int erpret this result as normal/abnormal . [facility] PfeycnyHZMIEJNUHC9933-33-04 12:50:00 Test Item Value Reference Range Interpretation Comments Stomatocyte (test code = Stomatocyte) slight [facility] ParkwayRvzxxzbPESFFNOLRM0946-00-65 12:50:00 Test Item Value Reference Range Interpretation Comments Ethanol Lvl (test code = Ethanol Lvl) no gt [facility] NykxkfqAXYBWOCSVT8043-49-96 12:50:00 Test Item Value Reference Range Interpretation Comments Etoh (%) (test code = Etoh (%)) no gt [facility] [employer] JTDYRAJ2566-22-09 12:50:00 Test Item Value Reference Range Interpretation Comments ABO/Rh (test code = ABO/Rh) O POS Echo it [id number] 12:50:00 Test Item Value Reference Range Interpretation Comments Antibody Scrn (test Negative (11/21/22 6:50 code = Antibody Scrn) AM) [facility] [employer] [id number] 12:50:00 Test Item Value Reference Range Interpretation Comments ABO/Rh (test code = ABO/Rh) O POS Echo it [id number] 12:50:00 Test Item Value Reference Range Interpretation Comments Antibody Scrn (test Negative (11/21/22 6:50 code = Antibody Scrn) AM) [facility] [id number] 12:50:00 Test Item Value Reference Range Interpretation Comments HS Troponin I (test code = HS Troponin 15 I) [facility] [id number] 12:50:00 Test Item Value Reference Range Interpretation Comments Glucose Lvl (test code = Glucose Lvl) 99 70-99 [place] 468413-02-21 12:50:00 Test Item Value Reference Range Interpretation Comments BUN (test code = BUN) 38 7-22 [facility]2023-02-21 12:50:00 Test Item Value Reference Range Interpretation Comments Creatinine Lvl (test code = Creatinine 2.38 0.50-1.40 Lvl) [facility]2023-02-21 12:50:00 Test Item Value Reference Range Interpretation Comments Sodium Lvl (test code = Sodium Lvl) 140 135-145 [facility]2023-02-21 12:50:00 Test Item Value Reference Range Interpretation Comments Potassium Lvl (test code = Potassium 3.9 3.5-5.1 Lvl) [facility]2023-02-21 12:50:00 Test Item Value Reference Range Interpretation Comments Chloride Lvl (test code = Chloride Lvl) 107 95-109 [facility]2023-02-21 12:50:00 Test Item Value Reference Range Interpretation Comments CO2 (test code = CO2) 27 24-32 [facility]2023-02-21 12:50:00 Test Item Value Reference Range Interpretation Comments Calcium Lvl (test code = Calcium Lvl) 8.1 8.5-10.5 [facility]2023-02-21 12:50:00 Test Item Value Reference Range Interpretation Comments AGAP (test code = AGAP) 9.9 10.0-20.0 [place] 468413-02-21 12:50:00 Test Item Value Reference Range Interpretation Comments eGFR (test code = eGFR) 20 [facility]2023-02-21 12:50:00 Test Item Value Reference Range Interpretation Comments Lactic Acid Lvl (test code = Lactic 0.7 0.5-2.2 Acid Lvl) [facility]2023-02-21 12:50:00 Test Item Value Reference Range Interpretation Comments Total Protein (test code = Total 6.1 6.4-8.4 Protein) [place] [address]-02-21 12:50:00 Test Item Value Reference Range Interpretation Comments Albumin Lvl (test code = Albumin Lvl) 2.9 3.5-5.0 [place] [address]-02-21 12:50:00 Test Item Value Reference Range Interpretation Comments Globulin (test code = Globulin) 3.2 2.7-4.2 [place] [address]-02-21 12:50:00 Test Item Value Reference Range Interpretation Comments A/G Ratio (test code = A/G Ratio) 0.9 1 0.7-1.6 [place] [address]-02-21 12:50:00 Test Item Value Reference Range Interpretation Comments ALT (test code = ALT) 16 See_Comment [Auto mated message] The system which ge nerated this result transmit sheba reference range : <=65. The reference range was not used to interpr et this result as edy l/abnormal. [facility] [id number] 12:50:00 Test Item Value Reference Range Interpretation Comments AST (test code = AST) 15 See_Comment [Auto mated message] The system which ge nerated this result transmit sheba reference range : <=37. The reference range was not used to interpr et this result as edy l/abnormal. [place] [address]-02-21 12:50:00 Test Item Value Reference Range Interpretation Comments Alk Phos (test code = Alk Phos) 96 39-136 [place] [address]-02-21 12:50:00 Test Item Value Reference Range Interpretation Comments Bili Total (test code = Bili Total) 0.2 0.2-1.3 [place] [address]-02-21 12:50:00 Test Item Value Reference Range Interpretation Comments Bili Direct (test code no gt See_Comment [Aut omated message] The = Bili Direct) system which generated this result tra nsmitted reference range : <=0.3. The reference r christiano was not used to int erpret this result as edy l/abnormal. [facility] [id number] 12:50:00 Test Item Value Reference Range Interpretation Comments Bili Indirect Unable to See_Comment [Automated (test code = Bili Calculate message] T he system Indirect) which generated this result transmitted reference range : <=1.0. The reference range was not used to interpret this result as normal/abnormal . [place] 647753-02-21 12:50:00 Test Item Value Reference Range Interpretation Comments Ethanol Lvl (test code = Ethanol Lvl) no gt [facility]bergFnnzahqXHIVUIMSZ7948-64-45 12:50:00 Test Item Value Reference Range Interpretation Comments Etoh (%) (test code = Etoh (%)) no gt [facility] KlebergPapzwezPLJUMTWHU5129-88-67 12:50:00 Test Item Value Reference Range Interpretation Comments Lactic Acid Lvl (test code = Lactic 0.7 0.5-2.2 Acid Lvl) [place] 647753-02-21 12:50:00 Test Item Value Reference Range Interpretation Comments Total Protein (test code = Total 6.1 6.4-8.4 Protein) [facility] KlebergOigchsqGBEXGVANR8254-51-88 12:50:00 Test Item Value Reference Range Interpretation Comments Albumin Lvl (test code = Albumin Lvl) 2.9 3.5-5.0 [place] 647753-02-21 12:50:00 Test Item Value Reference Range Interpretation Comments Globulin (test code = Globulin) 3.2 2.7-4.2 [place] [address]-02-21 12:50:00 Test Item Value Reference Range Interpretation Comments A/G Ratio (test code = A/G Ratio) 0.9 1 0.7-1.6 [place] 647753-02-21 12:50:00 Test Item Value Reference Range Interpretation Comments ALT (test code = ALT) 16 See_Comment [Auto mated message] The system which ge nerated this result transmit sheba reference range : <=65. The reference range was not used to interpr et this result as edy l/abnormal. [facility] KlebergDelagskFDKHOBUKA0627-85-87 12:50:00 Test Item Value Reference Range Interpretation Comments AST (test code = AST) 15 See_Comment [Auto mated message] The system which ge nerated this result transmit sheba reference range : <=37. The reference range was not used to interpr et this result as edy l/abnormal. [facility] KlebergWvdofxhVBYKFKLSH9211-41-57 12:50:00 Test Item Value Reference Range Interpretation Comments Alk Phos (test code = Alk Phos) 96 39-136 [facility] KlebergBabyhkuFHMXFZOJI6771-53-23 12:50:00 Test Item Value Reference Range Interpretation Comments Bili Total (test code = Bili Total) 0.2 0.2-1.3 [place] 647753-02-21 12:50:00 Test Item Value Reference Range Interpretation Comments Bili Direct (test code no gt See_Comment [Aut omated message] The = Bili Direct) system which generated this result tra nsmitted reference range : <=0.3. The reference r christiano was not used to int erpret this result as edy l/abnormal. [facility] KlebergNzzdmspRUBLIVMDB5708-72-57 12:50:00 Test Item Value Reference Range Interpretation Comments Bili Indirect Unable to See_Comment [Automated (test code = Bili Calculate message] T he system Indirect) which generated this result transmitted reference range : <=1.0. The reference range was not used to interpret this result as normal/abnormal . [facility] KlebergBmgggnxIRMBBZJSS4462-55-89 12:50:00 Test Item Value Reference Range Interpretation Comments HS Troponin I (test code = HS Troponin 15 I) [facility] KlebergPdwmcpnEXBBUQFHK7325-78-03 12:50:00 Test Item Value Reference Range Interpretation Comments pH Justin (test code = pH Justin) 7.35 1 7.28-7.42 [place] 647753-02-21 12:50:00 Test Item Value Reference Range Interpretation Comments pCO2 Justin (test code = pCO2 Justin) 55 38-52 [place] 647753-02-21 12:50:00 Test Item Value Reference Range Interpretation Comments pO2 Justin (test code = pO2 Justin) 43 20-49 [place] 647753-02-21 12:50:00 Test Item Value Reference Range Interpretation Comments HCO3 Justin (test code = HCO3 Justin) 30 22-26 [place] 647753-02-21 12:50:00 Test Item Value Reference Range Interpretation Comments BE Justin (test code = BE Justin) 3 -2-2 [facility] KlebergYssrzsxUAQYYIPXR7696-00-20 12:50:00 Test Item Value Reference Range Interpretation Comments O2 Sat Justin (calc) (test code = O2 Sat 75.9 40.0-70.0 Justin (calc)) [facility] KlebergXlatsmpJCXOLPBUS7992-31-38 12:50:00 Test Item Value Reference Range Interpretation Comments Temp Justin (test code = Temp Justin) 37.0 [place] 391173-02-21 12:50:00 Test Item Value Reference Range Interpretation Comments ACT (TEG) Rapid (test code = ACT (TEG) 113 s 86-118 Rapid) [place] 391173-02-21 12:50:00 Test Item Value Reference Range Interpretation Comments Split Point Rapid (test code = Split 0.6 min Point Rapid) [facility]AllenArlorysSMEDJKDDVD7528-98-01 12:50:00 Test Item Value Reference Range Interpretation Comments R-time Rapid (test code = R-time 0.7 min 0.4-0.7 Rapid) [place] 391173-02-21 12:50:00 Test Item Value Reference Range Interpretation Comments K-time Rapid (test code = K-time 1.1 min 0.6-2.3 Rapid) [place] 391173-02-21 12:50:00 Test Item Value Reference Range Interpretation Comments Angle Rapid (test code = Angle 78 degrees 64-80 Rapid) [place] 391173-02-21 12:50:00 Test Item Value Reference Range Interpretation Comments Max Amplitude Rapid (test code = Max 65 mm 52-71 Amplitude Rapid) [place] 391173-02-21 12:50:00 Test Item Value Reference Range Interpretation Comments G-value Rapid (test code = G-value 9.2 5.0-11.6 Rapid) [place] 391173-02-21 12:50:00 Test Item Value Reference Range Interpretation Comments Estimated % Lysis Rapid 0.0 See_Comment [Au tomated message] The (test code = Estimated syste m which generated % Lysis Rapid) this result t ransmitted reference range : <=7.5. The reference r christiano was not used to int erpret this result as normal/abnormal . [facility] McAllenGkgrvrqEXNUOAJWNE2143-95-58 12:50:00 Test Item Value Reference Range Interpretation Comments Plt Morph (test code = See Note 1(11/21/22 Plt Morph) 6:50 AM) [place] 391173-02-21 12:50:00 Test Item Value Reference Range Interpretation Comments Stomatocyte (test code = Stomatocyte) slight [place] [address]-02-21 12:50:00 Test Item Value Reference Range Interpretation Comments WBC X 10x3 (test code = WBC X 10x3) 8.7 3.7-10.4 [place] [address]-02-21 12:50:00 Test Item Value Reference Range Interpretation Comments RBC X 10x6 (test code = RBC X 10x6) 3.56 4.20-5.40 [place] [address]-02-21 12:50:00 Test Item Value Reference Range Interpretation Comments Hgb (test code = Hgb) 10.4 12.0-16.0 [place] [address]-02-21 12:50:00 Test Item Value Reference Range Interpretation Comments Hct (test code = Hct) 32.3 36.0-48.0 [place] [address]-02-21 12:50:00 Test Item Value Reference Range Interpretation Comments MCV (test code = MCV) 90.8 80.0-98.0 [place] [address]-02-21 12:50:00 Test Item Value Reference Range Interpretation Comments MCH (test code = MCH) 29.3 pg 27.0-31.0 [place] [address]-02-21 12:50:00 Test Item Value Reference Range Interpretation Comments MCHC (test code = MCHC) 32.2 32.0-36.0 [place] [address]-02-21 12:50:00 Test Item Value Reference Range Interpretation Comments RDW (test code = RDW) 13.7 11.5-14.5 [place] [address]-02-21 12:50:00 Test Item Value Reference Range Interpretation Comments Platelet (test code = Platelet) 137 133-450 [place] [address]-02-21 12:50:00 Test Item Value Reference Range Interpretation Comments MPV (test code = MPV) 7.9 7.4-10.4 [place] [address]-02-21 12:50:00 Test Item Value Reference Range Interpretation Comments ACT (TEG) Rapid (test code = ACT (TEG) 113 s 86-118 Rapid) [place] [address]-02-21 12:50:00 Test Item Value Reference Range Interpretation Comments Split Point Rapid (test code = Split 0.6 min Point Rapid) [place] [address]-02-21 12:50:00 Test Item Value Reference Range Interpretation Comments R-time Rapid (test code = R-time 0.7 min 0.4-0.7 Rapid) [place] [address]-02-21 12:50:00 Test Item Value Reference Range Interpretation Comments K-time Rapid (test code = K-time 1.1 min 0.6-2.3 Rapid) [place] [address]-02-21 12:50:00 Test Item Value Reference Range Interpretation Comments Angle Rapid (test code = Angle 78 degrees 64-80 Rapid) [place] [address]-02-21 12:50:00 Test Item Value Reference Range Interpretation Comments Max Amplitude Rapid (test code = Max 65 mm 52-71 Amplitude Rapid) [place] [address]-02-21 12:50:00 Test Item Value Reference Range Interpretation Comments G-value Rapid (test code = G-value 9.2 5.0-11.6 Rapid) [place] [address]-02-21 12:50:00 Test Item Value Reference Range Interpretation Comments Estimated % Lysis Rapid 0.0 See_Comment [Au tomated message] The (test code = Estimated syste m which generated % Lysis Rapid) this result t ransmitted reference range : <=7.5. The reference r christiano was not used to int erpret this result as normal/abnormal . [place] 391173-02-21 12:50:00 Test Item Value Reference Range Interpretation Comments Plt Morph (test code = See Note 1(11/21/22 Plt Morph) 6:50 AM) [place] [address]-02-21 12:50:00 Test Item Value Reference Range Interpretation Comments Segs (test code = Segs) 64.1 45.0-75.0 [place] [address]-02-21 12:50:00 Test Item Value Reference Range Interpretation Comments Lymphocytes (test code = Lymphocytes) 22.0 20.0-40.0 [place] [address]-02-21 12:50:00 Test Item Value Reference Range Interpretation Comments Monocytes (test code = Monocytes) 8.3 2.0-12.0 [place] [address]-02-21 12:50:00 Test Item Value Reference Range Interpretation Comments Eosinophils (test code = 4.7 See_Comment [A utomated message] The Eosinophils) system which ge nerated this result tra nsmitted reference range : <=4.0. The reference r christiano was not used to int erpret this result as normal/abnormal . [place] 391173-02-21 12:50:00 Test Item Value Reference Range Interpretation Comments Basophils (test code = 0.9 See_Comment [Aut omated message] The Basophils) system which ge nerated this result tra nsmitted reference range : <=1.0. The reference r christiano was not used to int erpret this result as normal/abnormal . [place] 391173-02-21 12:50:00 Test Item Value Reference Range Interpretation Comments Neutrophils # (test code = Neutrophils 5.6 1.5-8.1 #) [place] 391173-02-21 12:50:00 Test Item Value Reference Range Interpretation Comments Lymphocytes # (test code = Lymphocytes 1.9 1.0-5.5 #) [place] [address]-02-21 12:50:00 Test Item Value Reference Range Interpretation Comments Monocytes # (test code 0.7 See_Comment [Aut omated message] The = Monocytes #) system which generated this result tra nsmitted reference range : <=0.8. The reference r christiano was not used to int erpret this result as normal/abnormal . [place] 391173-02-21 12:50:00 Test Item Value Reference Range Interpretation Comments Eosinophils # (test code 0.4 See_Comment [A utomated message] The = Eosinophils #) system [facility] generated this result tra nsmitted reference range : <=0.5. The reference r christiano was not used to int erpret this result as normal/abnormal . [place] 391173-02-21 12:50:00 Test Item Value Reference Range Interpretation Comments Basophils # (test code 0.1 See_Comment [Aut omated message] The = Basophils #) system which generated this result tra nsmitted reference range : <=0.2. The reference r christiano was not used to int erpret this result as normal/abnormal . [place] 391173-02-21 12:50:00 Test Item Value Reference Range Interpretation Comments Stomatocyte (test code = Stomatocyte) slight [facility] AkkpthiUNOVNXYBDC8193-55-51 12:50:00 Test Item Value Reference Range Interpretation Comments Ethanol Lvl (test code = Ethanol Lvl) no gt [facility] CzfiwqdVOKYSWEZEM2226-12-74 12:50:00 Test Item Value Reference Range Interpretation Comments Etoh (%) (test code = Etoh (%)) no gt [facility] [employer] [id number] 12:50:00 Test Item Value Reference Range Interpretation Comments ABO/Rh (test code = ABO/Rh) O POS [facility] [employer] [id number] 12:50:00 Test Item Value Reference Range Interpretation Comments Antibody Scrn (test Negative (11/21/22 6:50 code = Antibody Scrn) AM) [facility] [employer] [id number] 12:50:00 Test Item Value Reference Range Interpretation Comments ABO/Rh (test code = ABO/Rh) O POS [facility] [employer] [id number] 12:50:00 Test Item Value Reference Range Interpretation Comments Antibody Scrn (test Negative (11/21/22 6:50 code = Antibody Scrn) AM) [facility] [employer] [id number] 12:50:00 Test Item Value Reference Range Interpretation Comments HS Troponin I (test code = HS Troponin 15 I) [place] HEJBT6137-72-54 12:50:00 Test Item Value Reference Range Interpretation Comments Glucose Lvl (test code = Glucose Lvl) 99 70-99 [employer]2023-02-21 12:50:00 Test Item Value Reference Range Interpretation Comments BUN (test code = BUN) 38 7-22 [facility] [employer]2023-02-21 12:50:00 Test Item Value Reference Range Interpretation Comments Creatinine Lvl (test code = Creatinine 2.38 0.50-1.40 Lvl) [employer]2023-02-21 12:50:00 Test Item Value Reference Range Interpretation Comments Sodium Lvl (test code = Sodium Lvl) 140 135-145 [employer]2023-02-21 12:50:00 Test Item Value Reference Range Interpretation Comments Potassium Lvl (test code = Potassium 3.9 3.5-5.1 Lvl) [employer]2023-02-21 12:50:00 Test Item Value Reference Range Interpretation Comments Chloride Lvl (test code = Chloride Lvl) 107 95-109 [place] 468413-02-21 12:50:00 Test Item Value Reference Range Interpretation Comments CO2 (test code = CO2) 27 24-32 [place] [address]-02-21 12:50:00 Test Item Value Reference Range Interpretation Comments Calcium Lvl (test code = Calcium Lvl) 8.1 8.5-10.5 [place] 468413-02-21 12:50:00 Test Item Value Reference Range Interpretation Comments AGAP (test code = AGAP) 9.9 10.0-20.0 [place] 468413-02-21 12:50:00 Test Item Value Reference Range Interpretation Comments eGFR (test code = eGFR) 20 [place] 468413-02-21 12:50:00 Test Item Value Reference Range Interpretation Comments Lactic Acid Lvl (test code = Lactic 0.7 0.5-2.2 Acid Lvl) [place] 468413-02-21 12:50:00 Test Item Value Reference Range Interpretation Comments Total Protein (test code = Total 6.1 6.4-8.4 Protein) [place] 468413-02-21 12:50:00 Test Item Value Reference Range Interpretation Comments Albumin Lvl (test code = Albumin Lvl) 2.9 3.5-5.0 [place] [address]-02-21 12:50:00 Test Item Value Reference Range Interpretation Comments Globulin (test code = Globulin) 3.2 2.7-4.2 [place] [address]-02-21 12:50:00 Test Item Value Reference Range Interpretation Comments A/G Ratio (test code = A/G Ratio) 0.9 1 0.7-1.6 [place] [address]-02-21 12:50:00 Test Item Value Reference Range Interpretation Comments ALT (test code = ALT) 16 See_Comment [Auto mated message] The system which ge nerated this result transmit sheba reference range : <=65. The reference range was not used to interpr et this result as edy l/abnormal. [place] 468413-02-21 12:50:00 Test Item Value Reference Range Interpretation Comments AST (test code = AST) 15 See_Comment [Auto mated message] The system which ge nerated this result transmit sheba reference range : <=37. The reference range was not used to interpr et this result as edy l/abnormal. [facility] [id number] 12:50:00 Test Item Value Reference Range Interpretation Comments Alk Phos (test code = Alk Phos) 96 39-136 [facility] [id number] 12:50:00 Test Item Value Reference Range Interpretation Comments Bili Total (test code = Bili Total) 0.2 0.2-1.3 [facility] [id number] 12:50:00 Test Item Value Reference Range Interpretation Comments Bili Direct (test code no gt See_Comment [Aut omated message] The = Bili Direct) system which generated this result tra nsmitted reference range : <=0.3. The reference r christiano was not used to int erpret this result as edy l/abnormal. [facility] [id number] 12:50:00 Test Item Value Reference Range Interpretation Comments Bili Indirect Unable to See_Comment [Automated (test code = Bili Calculate message] T he system Indirect) which generated this result transmitted reference range : <=1.0. The reference range was not used to interpret this result as normal/abnormal . [facility] CenterWtcjthoLXXFXSUZY8106-19-99 12:50:00 Test Item Value Reference Range Interpretation Comments Ethanol Lvl (test code = Ethanol Lvl) no [facility]BC[facility]WTW2613[facility]46-78 12:50:00 Test Item Value Reference Range Interpretation Comments Etoh (%) (test code = Etoh (%)) no [facility] CenterWqqbvpsPQZPZGJZC0935-76-82 12:50:00 Test Item Value Reference Range Interpretation Comments Lactic Acid Lvl (test code = Lactic 0.7 0.5-2.2 Acid Lvl) [place] 647753-02-21 12:50:00 Test Item Value Reference Range Interpretation Comments Total Protein (test code = Total 6.1 6.4-8.4 Protein) [place] 647753-02-21 12:50:00 Test Item Value Reference Range Interpretation Comments Albumin Lvl (test code = Albumin Lvl) 2.9 3.5-5.0 [facility]wdhoykLMWNQBEDH2832-62-97 12:50:00 Test Item Value Reference Range Interpretation Comments Globulin (test code = Globulin) 3.2 2.7-4.2 [facility] ParkwayHixfkgrETLKJYQOU7131-92-75 12:50:00 Test Item Value Reference Range Interpretation Comments A/G Ratio (test code = A/G Ratio) 0.9 1 0.7-1.6 [facility] ParkwayVuqpbhaMSSJMBXAC0987-05-33 12:50:00 Test Item Value Reference Range Interpretation Comments ALT (test code = ALT) 16 See_Comment [Auto mated message] The system which ge nerated this result transmit sheba reference range : <=65. The reference range was not used to interpr et this result as edy l/abnormal. [facility] ParkwayQypwxsfMBNYIDBJU5446-64-08 12:50:00 Test Item Value Reference Range Interpretation Comments AST (test code = AST) 15 See_Comment [Auto mated message] The system which ge nerated this result transmit sheba reference range : <=37. The reference range was not used to interpr et this result as edy l/abnormal. [facility] ParkwayFbndbypDSTMUFQLF1387-42-79 12:50:00 Test Item Value Reference Range Interpretation Comments Alk Phos (test code = Alk Phos) 96 39-136 [facility] ParkwayHwweskpCLVJLIZRM8649-45-96 12:50:00 Test Item Value Reference Range Interpretation Comments Bili Total (test code = Bili Total) 0.2 0.2-1.3 [facility] ParkwayHiqtwmkEEJJTYQAF7084-99-33 12:50:00 Test Item Value Reference Range Interpretation Comments Bili Direct (test code no gt See_Comment [Aut omated message] The = Bili Direct) system which generated this result tra nsmitted reference range : <=0.3. The reference r christiano was not used to int erpret this result as edy l/abnormal. [facility] QkdipfpNBFVXDWEZ0508-71-67 12:50:00 Test Item Value Reference Range Interpretation Comments Bili Indirect Unable to See_Comment [Automated (test code = Bili Calculate message] T he system Indirect) which generated this result transmitted reference range : <=1.0. The reference range was not used to interpret this result as normal/abnormal . [facility] MrqgtveUUHWYJJQX6283-46-50 12:50:00 Test Item Value Reference Range Interpretation Comments HS Troponin I (test code = HS Troponin 15 I) [facility] KlebergLsnyheaZETTGHUND7670-52-54 12:50:00 Test Item Value Reference Range Interpretation Comments pH Justin (test code = pH Justin) 7.35 1 7.28-7.42 [facility] KlebergCvrkkmuTCZZNDODA6109-31-07 12:50:00 Test Item Value Reference Range Interpretation Comments pCO2 Justin (test code = pCO2 Justin) 55 38-52 [place] 647753-02-21 12:50:00 Test Item Value Reference Range Interpretation Comments pO2 Justin (test code = pO2 Justin) 43 20-49 [place] 647753-02-21 12:50:00 Test Item Value Reference Range Interpretation Comments HCO3 Justin (test code = HCO3 Justin) 30 22-26 [place] 647753-02-21 12:50:00 Test Item Value Reference Range Interpretation Comments BE Justin (test code = BE Justin) 3 -2-2 [facility] KlebergVoqrltuMAGXHLYYM0348-38-86 12:50:00 Test Item Value Reference Range Interpretation Comments O2 Sat Justin (calc) (test code = O2 Sat 75.9 40.0-70.0 Justin (calc)) [facility] KlebergZkidfgiNZOTSCLVJ6998-48-40 12:50:00 Test Item Value Reference Range Interpretation Comments Temp Justin (test code = Temp Justin) 37.0 [facility] McAllenGvigjzwQHJOMICKKJ8417-21-96 12:50:00 Test Item Value Reference Range Interpretation Comments ACT (TEG) Rapid (test code = ACT (TEG) 113 s 86-118 Rapid) [facility] McAllenDlksisdHSKDNGTHKN1861-04-97 12:50:00 Test Item Value Reference Range Interpretation Comments Split Point Rapid (test code = Split 0.6 min Point Rapid) [facility] McAllenXvqeppfGVOCKSEHHK5154-95-80 12:50:00 Test Item Value Reference Range Interpretation Comments R-time Rapid (test code = R-time 0.7 min 0.4-0.7 Rapid) [place] 391173-02-21 12:50:00 Test Item Value Reference Range Interpretation Comments K-time Rapid (test code = K-time 1.1 min 0.6-2.3 Rapid) [facility] McAllenZnchqqjJETSVDASRU9822-83-77 12:50:00 Test Item Value Reference Range Interpretation Comments Angle Rapid (test code = Angle 78 degrees 64-80 Rapid) [place] 391173-02-21 12:50:00 Test Item Value Reference Range Interpretation Comments Max Amplitude Rapid (test code = Max 65 mm 52-71 Amplitude Rapid) [place] [address]-02-21 12:50:00 Test Item Value Reference Range Interpretation Comments G-value Rapid (test code = G-value 9.2 5.0-11.6 Rapid) [place] 391173-02-21 12:50:00 Test Item Value Reference Range Interpretation Comments Estimated % Lysis Rapid 0.0 See_Comment [Au tomated message] The (test code = Estimated syste m which generated % Lysis Rapid) this result t ransmitted reference range : <=7.5. The reference r christiano was not used to int erpret this result as normal/abnormal . [place] 391173-02-21 12:50:00 Test Item Value Reference Range Interpretation Comments Plt Morph (test code = See Note 1(11/21/22 Plt Morph) 6:50 AM) [place] [address]-02-21 12:50:00 Test Item Value Reference Range Interpretation Comments Stomatocyte (test code = Stomatocyte) slight [place] [address]-02-21 12:50:00 Test Item Value Reference Range Interpretation Comments WBC X 10x3 (test code = WBC X 10x3) 8.7 3.7-10.4 [place] [address]-02-21 12:50:00 Test Item Value Reference Range Interpretation Comments RBC X 10x6 (test code = RBC X 10x6) 3.56 4.20-5.40 [place] [address]-02-21 12:50:00 Test Item Value Reference Range Interpretation Comments Hgb (test code = Hgb) 10.4 12.0-16.0 [place] [address]-02-21 12:50:00 Test Item Value Reference Range Interpretation Comments Hct (test code = Hct) 32.3 36.0-48.0 [place] [address]-02-21 12:50:00 Test Item Value Reference Range Interpretation Comments MCV (test code = MCV) 90.8 80.0-98.0 [place] [address]-02-21 12:50:00 Test Item Value Reference Range Interpretation Comments MCH (test code = MCH) 29.3 pg 27.0-31.0 [place] 391173-02-21 12:50:00 Test Item Value Reference Range Interpretation Comments MCHC (test code = MCHC) 32.2 32.0-36.0 [place] 391173-02-21 12:50:00 Test Item Value Reference Range Interpretation Comments RDW (test code = RDW) 13.7 11.5-14.5 [place] 391173-02-21 12:50:00 Test Item Value Reference Range Interpretation Comments Platelet (test code = Platelet) 137 133-450 [place] 391173-02-21 12:50:00 Test Item Value Reference Range Interpretation Comments MPV (test code = MPV) 7.9 7.4-10.4 [place] [address]-02-21 12:50:00 Test Item Value Reference Range Interpretation Comments ACT (TEG) Rapid (test code = ACT (TEG) 113 s 86-118 Rapid) [place] 391173-02-21 12:50:00 Test Item Value Reference Range Interpretation Comments Split Point Rapid (test code = Split 0.6 min Point Rapid) [place] 391173-02-21 12:50:00 Test Item Value Reference Range Interpretation Comments R-time Rapid (test code = R-time 0.7 min 0.4-0.7 Rapid) [place] [address]-02-21 12:50:00 Test Item Value Reference Range Interpretation Comments K-time Rapid (test code = K-time 1.1 min 0.6-2.3 Rapid) [place] [address]-02-21 12:50:00 Test Item Value Reference Range Interpretation Comments Angle Rapid (test code = Angle 78 degrees 64-80 Rapid) [place] [address]-02-21 12:50:00 Test Item Value Reference Range Interpretation Comments Max Amplitude Rapid (test code = Max 65 mm 52-71 Amplitude Rapid) [place] 391173-02-21 12:50:00 Test Item Value Reference Range Interpretation Comments G-value Rapid (test code = G-value 9.2 5.0-11.6 Rapid) [place] 391173-02-21 12:50:00 Test Item Value Reference Range Interpretation Comments Estimated % Lysis Rapid 0.0 See_Comment [Au tomated message] The (test code = Estimated syste m which generated % Lysis Rapid) this result t ransmitted reference range : <=7.5. The reference r christiano was not used to int erpret this result as normal/abnormal . [facility] McAllenSjoxzfxOCLQNEZBMD2550-84-50 12:50:00 Test Item Value Reference Range Interpretation Comments Plt Morph (test code = See Note 1(11/21/22 Plt Morph) 6:50 AM) [place] 391173-02-21 12:50:00 Test Item Value Reference Range Interpretation Comments Segs (test code = Segs) 64.1 45.0-75.0 [place] 391173-02-21 12:50:00 Test Item Value Reference Range Interpretation Comments Lymphocytes (test code = Lymphocytes) 22.0 20.0-40.0 [place] 391173-02-21 12:50:00 Test Item Value Reference Range Interpretation Comments Monocytes (test code = Monocytes) 8.3 2.0-12.0 [place] 391173-02-21 12:50:00 Test Item Value Reference Range Interpretation Comments Eosinophils (test code = 4.7 See_Comment [A utomated message] The Eosinophils) system which ge nerated this result tra nsmitted reference range : <=4.0. The reference r christiano was not used to int erpret this result as normal/abnormal . [facility] McAllenIwkddtwSWZRTTLVTR1373-98-84 12:50:00 Test Item Value Reference Range Interpretation Comments Basophils (test code = 0.9 See_Comment [Aut omated message] The Basophils) system which ge nerated this result tra nsmitted reference range : <=1.0. The reference r christiano was not used to int erpret this result as normal/abnormal . [facility] McAllenZykzdhkNOZGXKFFYI6168-44-16 12:50:00 Test Item Value Reference Range Interpretation Comments Neutrophils # (test code = Neutrophils 5.6 1.5-8.1 #) [place] 391173-02-21 12:50:00 Test Item Value Reference Range Interpretation Comments Lymphocytes # (test code = Lymphocytes 1.9 1.0-5.5 #) [place] 391173-02-21 12:50:00 Test Item Value Reference Range Interpretation Comments Monocytes # (test code 0.7 See_Comment [Aut omated message] The = Monocytes #) system which generated this result tra nsmitted reference range : <=0.8. The reference r christiano was not used to int erpret this result as normal/abnormal . [facility] ErmiltiQXWCOSUOIQ8498-20-01 12:50:00 Test Item Value Reference Range Interpretation Comments Eosinophils # (test code 0.4 See_Comment [A utomated message] The = Eosinophils #) system whic h generated this result tra nsmitted reference range : <=0.5. The reference r christiano was not used to int erpret this result as normal/abnormal . [facility] PymiujsWFPKUFRUJD1131-97-23 12:50:00 Test Item Value Reference Range Interpretation Comments Basophils # (test code 0.1 See_Comment [Aut omated message] The = Basophils #) system which generated this result tra nsmitted reference range : <=0.2. The reference r christiano was not used to int erpret this result as normal/abnormal . [facility] MwxmmxhXBFKAAJEUE3734-12-04 12:50:00 Test Item Value Reference Range Interpretation Comments Stomatocyte (test code = Stomatocyte) slight [facility]wayVfqumieZVFOYXGDWP5983-49-84 12:50:00 Test Item Value Reference Range Interpretation Comments Ethanol Lvl (test code = Ethanol Lvl) no gt [facility] [facility] [id number] 12:50:00 Test Item Value Reference Range Interpretation Comments Etoh (%) (test code = Etoh (%)) no gt [facility] [employer] [id number] 12:50:00 Test Item Value Reference Range Interpretation Comments ABO/Rh (test code = ABO/Rh) O POS [facility] [employer] [id number] 12:50:00 Test Item Value Reference Range Interpretation Comments Antibody Scrn (test Negative (11/21/22 6:50 code = Antibody Scrn) AM) [facility] [employer] [id number] 12:50:00 Test Item Value Reference Range Interpretation Comments ABO/Rh (test code = ABO/Rh) O POS [facility] [employer] [id number] 12:50:00 Test Item Value Reference Range Interpretation Comments Antibody Scrn (test Negative (11/21/22 6:50 code = Antibody Scrn) AM) [facility] [id number] 12:50:00 Test Item Value Reference Range Interpretation Comments HS Troponin I (test code = HS Troponin 15 I) [facility] [id number] 12:50:00 Test Item Value Reference Range Interpretation Comments Glucose Lvl (test code = Glucose Lvl) 99 70-99 [facility]2023-02-21 12:50:00 Test Item Value Reference Range Interpretation Comments BUN (test code = BUN) 38 7-22 [facility] [id number] 12:50:00 Test Item Value Reference Range Interpretation Comments Creatinine Lvl (test code = Creatinine 2.38 0.50-1.40 Lvl) [facility] [id number] 12:50:00 Test Item Value Reference Range Interpretation Comments Sodium Lvl (test code = Sodium Lvl) 140 135-145 [facility]2023-02-21 12:50:00 Test Item Value Reference Range Interpretation Comments Potassium Lvl (test code = Potassium 3.9 3.5-5.1 Lvl) [facility]2023-02-21 12:50:00 Test Item Value Reference Range Interpretation Comments Chloride Lvl (test code = Chloride Lvl) 107 95-109 [facility]2023-02-21 12:50:00 Test Item Value Reference Range Interpretation Comments CO2 (test code = CO2) 27 24-32 [facility]2023-02-21 12:50:00 Test Item Value Reference Range Interpretation Comments Calcium Lvl (test code = Calcium Lvl) 8.1 8.5-10.5 [facility]2023-02-21 12:50:00 Test Item Value Reference Range Interpretation Comments AGAP (test code = AGAP) 9.9 10.0-20.0 [facility]2023-02-21 12:50:00 Test Item Value Reference Range Interpretation Comments eGFR (test code = eGFR) 20 [facility]2023-02-21 12:50:00 Test Item Value Reference Range Interpretation Comments Lactic Acid Lvl (test code = Lactic 0.7 0.5-2.2 Acid Lvl) [facility]2023-02-21 12:50:00 Test Item Value Reference Range Interpretation Comments Total Protein (test code = Total 6.1 6.4-8.4 Protein) [place] [address]-02-21 12:50:00 Test Item Value Reference Range Interpretation Comments Albumin Lvl (test code = Albumin Lvl) 2.9 3.5-5.0 [place] [address]-02-21 12:50:00 Test Item Value Reference Range Interpretation Comments Globulin (test code = Globulin) 3.2 2.7-4.2 [place] [address]-02-21 12:50:00 Test Item Value Reference Range Interpretation Comments A/G Ratio (test code = A/G Ratio) 0.9 1 0.7-1.6 [place] [address]-02-21 12:50:00 Test Item Value Reference Range Interpretation Comments ALT (test code = ALT) 16 See_Comment [Auto mated message] The system which ge nerated this result transmit sheba reference range : <=65. The reference range was not used to interpr et this result as edy l/abnormal. [facility] [id number] 12:50:00 Test Item Value Reference Range Interpretation Comments AST (test code = AST) 15 See_Comment [Auto mated message] The system which ge nerated this result transmit sheba reference range : <=37. The reference range was not used to interpr et this result as edy l/abnormal. [place] 468413-02-21 12:50:00 Test Item Value Reference Range Interpretation Comments Alk Phos (test code = Alk Phos) 96 39-136 [facility] [id number] 12:50:00 Test Item Value Reference Range Interpretation Comments Bili Total (test code = Bili Total) 0.2 0.2-1.3 [place] [address]-02-21 12:50:00 Test Item Value Reference Range Interpretation Comments Bili Direct (test code no gt See_Comment [Aut omated message] The = Bili Direct) system which generated this result tra nsmitted reference range : <=0.3. The reference r christiano was not used to int erpret this result as edy l/abnormal. [facility] [id number] 12:50:00 Test Item Value Reference Range Interpretation Comments Bili Indirect Unable to See_Comment [Automated (test code = Bili Calculate message] T he system Indirect) which generated this result transmitted reference range : <=1.0. The reference range was not used to interpret this result as normal/abnormal . [facility] KlebergFaiucuyRGMEWOKNL9001-61-51 12:50:00 Test Item Value Reference Range Interpretation Comments Ethanol Lvl (test code = Ethanol Lvl) no gt [facility] KlebergMepobeoOZWWZHGTE5170-67-62 12:50:00 Test Item Value Reference Range Interpretation Comments Etoh (%) (test code = Etoh (%)) no gt [facility] KlebergFiccfdxRUQWTDUWU8746-32-73 12:50:00 Test Item Value Reference Range Interpretation Comments Lactic Acid Lvl (test code = Lactic 0.7 0.5-2.2 Acid Lvl) [place] 647753-02-21 12:50:00 Test Item Value Reference Range Interpretation Comments Total Protein (test code = Total 6.1 6.4-8.4 Protein) [facility] KlebergRqbhzrcNKZTHYNXL2417-24-01 12:50:00 Test Item Value Reference Range Interpretation Comments Albumin Lvl (test code = Albumin Lvl) 2.9 3.5-5.0 [place] [address]-02-21 12:50:00 Test Item Value Reference Range Interpretation Comments Globulin (test code = Globulin) 3.2 2.7-4.2 [place] [address]-02-21 12:50:00 Test Item Value Reference Range Interpretation Comments A/G Ratio (test code = A/G Ratio) 0.9 1 0.7-1.6 [place] 647753-02-21 12:50:00 Test Item Value Reference Range Interpretation Comments ALT (test code = ALT) 16 See_Comment [Auto mated message] The system which ge nerated this result transmit sheba reference range : <=65. The reference range was not used to interpr et this result as edy l/abnormal. [facility] KlebergYwpxdgsDPREPJDLK4083-81-54 12:50:00 Test Item Value Reference Range Interpretation Comments AST (test code = AST) 15 See_Comment [Auto mated message] The system which ge nerated this result transmit sheba reference range : <=37. The reference range was not used to interpr et this result as edy l/abnormal. [place] 647753-02-21 12:50:00 Test Item Value Reference Range Interpretation Comments Alk Phos (test code = Alk Phos) 96 39-136 [facility] KlebergLyiekodUBBLVFPMX9423-20-29 12:50:00 Test Item Value Reference Range Interpretation Comments Bili Total (test code = Bili Total) 0.2 0.2-1.3 [facility] KlebergXtjufrmKGVCSGSKG9477-98-95 12:50:00 Test Item Value Reference Range Interpretation Comments Bili Direct (test code no gt See_Comment [Aut omated message] The = Bili Direct) system which generated this result tra nsmitted reference range : <=0.3. The reference r christiano was not used to int erpret this result as edy l/abnormal. [facility] KlebergVhzcrybIOQTNXTYF8085-66-72 12:50:00 Test Item Value Reference Range Interpretation Comments Bili Indirect Unable to See_Comment [Automated (test code = Bili Calculate message] T he system Indirect) which generated this result transmitted reference range : <=1.0. The reference range was not used to interpret this result as normal/abnormal . [facility] KlebergZflkitzOWXFDRVPJ2505-23-29 12:50:00 Test Item Value Reference Range Interpretation Comments HS Troponin I (test code = HS Troponin 15 I) [facility] KlebergTzbazbfBNWGBIJGY4284-66-69 12:50:00 Test Item Value Reference Range Interpretation Comments pH Justin (test code = pH Justin) 7.35 1 7.28-7.42 [facility] KlebergLtdklkuMQAQCFUPU6696-96-84 12:50:00 Test Item Value Reference Range Interpretation Comments pCO2 Justin (test code = pCO2 Justin) 55 38-52 [facility] KlebergLodkzgsCWCAVZCRP5139-05-57 12:50:00 Test Item Value Reference Range Interpretation Comments pO2 Justin (test code = pO2 Justin) 43 20-49 [facility] KlebergQyxmdgeWHMYXWWAO8097-87-48 12:50:00 Test Item Value Reference Range Interpretation Comments HCO3 Justin (test code = HCO3 Justin) 30 22-26 [facility] KlebergWkjfpcsHNNSSNIFP1537-40-97 12:50:00 Test Item Value Reference Range Interpretation Comments BE Justin (test code = BE Justin) 3 -2-2 [facility] KlebergDffrhpkFHRCABJCR4414-84-72 12:50:00 Test Item Value Reference Range Interpretation Comments O2 Sat Justin (calc) (test code = O2 Sat 75.9 40.0-70.0 Justin (calc)) [place] [address]-02-21 12:50:00 Test Item Value Reference Range Interpretation Comments Temp Justin (test code = Temp Ujstin) 37.0 [place] 391173-02-21 12:50:00 Test Item Value Reference Range Interpretation Comments ACT (TEG) Rapid (test code = ACT (TEG) 113 s 86-118 Rapid) [place] 391173-02-21 12:50:00 Test Item Value Reference Range Interpretation Comments Split Point Rapid (test code = Split 0.6 min Point Rapid) [facility] McAllenMyxjapvKEELVNXGFO3010-38-14 12:50:00 Test Item Value Reference Range Interpretation Comments R-time Rapid (test code = R-time 0.7 min 0.4-0.7 Rapid) [place] [address]-02-21 12:50:00 Test Item Value Reference Range Interpretation Comments K-time Rapid (test code = K-time 1.1 min 0.6-2.3 Rapid) [place] 391173-02-21 12:50:00 Test Item Value Reference Range Interpretation Comments Angle Rapid (test code = Angle 78 degrees 64-80 Rapid) [place] 391173-02-21 12:50:00 Test Item Value Reference Range Interpretation Comments Max Amplitude Rapid (test code = Max 65 mm 52-71 Amplitude Rapid) [place] 391173-02-21 12:50:00 Test Item Value Reference Range Interpretation Comments G-value Rapid (test code = G-value 9.2 5.0-11.6 Rapid) [place] 391173-02-21 12:50:00 Test Item Value Reference Range Interpretation Comments Estimated % Lysis Rapid 0.0 See_Comment [Au tomated message] The (test code = Estimated syste m which generated % Lysis Rapid) this result t ransmitted reference range : <=7.5. The reference r christiano was not used to int erpret this result as normal/abnormal . [place] 391173-02-21 12:50:00 Test Item Value Reference Range Interpretation Comments Plt Morph (test code = See Note 1(11/21/22 Plt Morph) 6:50 AM) [place] 391173-02-21 12:50:00 Test Item Value Reference Range Interpretation Comments Stomatocyte (test code = Stomatocyte) slight [facility] McAllenGukyeebBIFXYVHBSH6095-09-27 12:50:00 Test Item Value Reference Range Interpretation Comments WBC X 10x3 (test code = WBC X 10x3) 8.7 3.7-10.4 [place] 391173-02-21 12:50:00 Test Item Value Reference Range Interpretation Comments RBC X 10x6 (test code = RBC X 10x6) 3.56 4.20-5.40 [facility] McAllenXatqydmHVZRFVUBZP0600-29-37 12:50:00 Test Item Value Reference Range Interpretation Comments Hgb (test code = Hgb) 10.4 12.0-16.0 [place] 391173-02-21 12:50:00 Test Item Value Reference Range Interpretation Comments Hct (test code = Hct) 32.3 36.0-48.0 [place] 391173-02-21 12:50:00 Test Item Value Reference Range Interpretation Comments MCV (test code = MCV) 90.8 80.0-98.0 [place] 391173-02-21 12:50:00 Test Item Value Reference Range Interpretation Comments MCH (test code = MCH) 29.3 pg 27.0-31.0 [facility] McAllenHcydzqoGUHDBDDBGT3194-78-72 12:50:00 Test Item Value Reference Range Interpretation Comments MCHC (test code = MCHC) 32.2 32.0-36.0 [facility] McAllenRpqczsjQRIEHIOSYQ2252-79-43 12:50:00 Test Item Value Reference Range Interpretation Comments RDW (test code = RDW) 13.7 11.5-14.5 [place] 391173-02-21 12:50:00 Test Item Value Reference Range Interpretation Comments Platelet (test code = Platelet) 137 133-450 [place] 391173-02-21 12:50:00 Test Item Value Reference Range Interpretation Comments MPV (test code = MPV) 7.9 7.4-10.4 [place] 391173-02-21 12:50:00 Test Item Value Reference Range Interpretation Comments ACT (TEG) Rapid (test code = ACT (TEG) 113 s 86-118 Rapid) [place] 391173-02-21 12:50:00 Test Item Value Reference Range Interpretation Comments Split Point Rapid (test code = Split 0.6 min Point Rapid) [place] 391173-02-21 12:50:00 Test Item Value Reference Range Interpretation Comments R-time Rapid (test code = R-time 0.7 min 0.4-0.7 Rapid) [place] 391173-02-21 12:50:00 Test Item Value Reference Range Interpretation Comments K-time Rapid (test code = K-time 1.1 min 0.6-2.3 Rapid) [place] [address]-02-21 12:50:00 Test Item Value Reference Range Interpretation Comments Angle Rapid (test code = Angle 78 degrees 64-80 Rapid) [place] [address]-02-21 12:50:00 Test Item Value Reference Range Interpretation Comments Max Amplitude Rapid (test code = Max 65 mm 52-71 Amplitude Rapid) [place] [address]-02-21 12:50:00 Test Item Value Reference Range Interpretation Comments G-value Rapid (test code = G-value 9.2 5.0-11.6 Rapid) [place] [address]-02-21 12:50:00 Test Item Value Reference Range Interpretation Comments Estimated % Lysis Rapid 0.0 See_Comment [Au tomated message] The (test code = Estimated syste m which generated % Lysis Rapid) this result t ransmitted reference range : <=7.5. The reference r christiano was not used to int erpret this result as normal/abnormal . [place] 391173-02-21 12:50:00 Test Item Value Reference Range Interpretation Comments Plt Morph (test code = See Note 1(11/21/22 Plt Morph) 6:50 AM) [place] [address]-02-21 12:50:00 Test Item Value Reference Range Interpretation Comments Segs (test code = Segs) 64.1 45.0-75.0 [place] [address]-02-21 12:50:00 Test Item Value Reference Range Interpretation Comments Lymphocytes (test code = Lymphocytes) 22.0 20.0-40.0 [place] [address]-02-21 12:50:00 Test Item Value Reference Range Interpretation Comments Monocytes (test code = Monocytes) 8.3 2.0-12.0 [place] [address]-02-21 12:50:00 Test Item Value Reference Range Interpretation Comments Eosinophils (test code = 4.7 See_Comment [A utomated message] The Eosinophils) system which ge nerated this result tra nsmitted reference range : <=4.0. The reference r christiano was not used to int erpret this result as normal/abnormal . [facility] McAllenJjijiqmOYYGPRRBME3709-42-73 12:50:00 Test Item Value Reference Range Interpretation Comments Basophils (test code = 0.9 See_Comment [Aut omated message] The Basophils) system which ge nerated this result tra nsmitted reference range : <=1.0. The reference r christiano was not used to int erpret this result as normal/abnormal . [place] 391173-02-21 12:50:00 Test Item Value Reference Range Interpretation Comments Neutrophils # (test code = Neutrophils 5.6 1.5-8.1 #) [facility] McAllenBrsuwmfMGIJVMODDP4370-41-35 12:50:00 Test Item Value Reference Range Interpretation Comments Lymphocytes # (test code = Lymphocytes 1.9 1.0-5.5 #) [place] 391173-02-21 12:50:00 Test Item Value Reference Range Interpretation Comments Monocytes # (test code 0.7 See_Comment [Aut omated message] The = Monocytes #) system which generated this result tra nsmitted reference range : <=0.8. The reference r christiano was not used to int erpret this result as normal/abnormal . [facility] McAllenYgmanjnJKFXQFCCOO7252-43-20 12:50:00 Test Item Value Reference Range Interpretation Comments Eosinophils # (test code 0.4 See_Comment [A utomated message] The = Eosinophils #) system [facility] generated this result tra nsmitted reference range : <=0.5. The reference r christiano was not used to int erpret this result as normal/abnormal . [facility] McAllenCopyhjmBCIGEGAOZF5981-10-04 12:50:00 Test Item Value Reference Range Interpretation Comments Basophils # (test code 0.1 See_Comment [Aut omated message] The = Basophils #) system which generated this result tra nsmitted reference range : <=0.2. The reference r christiano was not used to int erpret this result as normal/abnormal . [place] 391173-02-21 12:50:00 Test Item Value Reference Range Interpretation Comments Stomatocyte (test code = Stomatocyte) slight [facility] KlebergHmmnmryFJBARXUTEZ8538-57-68 12:50:00 Test Item Value Reference Range Interpretation Comments Ethanol Lvl (test code = Ethanol Lvl) no gt [facility] AvqkvbtUYZSNPGEKH7783-39-21 12:50:00 Test Item Value Reference Range Interpretation Comments Etoh (%) (test code = Etoh (%)) no gt [facility] [employer] [id number] 12:50:00 Test Item Value Reference Range Interpretation Comments ABO/Rh (test code = ABO/Rh) O POS [facility] [employer] [id number] 12:50:00 Test Item Value Reference Range Interpretation Comments Antibody Scrn (test Negative (11/21/22 6:50 code = Antibody Scrn) AM) [facility] [employer] [id number] 12:50:00 Test Item Value Reference Range Interpretation Comments ABO/Rh (test code = ABO/Rh) O POS [facility] [employer] [id number] 12:50:00 Test Item Value Reference Range Interpretation Comments Antibody Scrn (test Negative (11/21/22 6:50 code = Antibody Scrn) AM) [facility] [employer] [id number] 12:50:00 Test Item Value Reference Range Interpretation Comments HS Troponin I (test code = HS Troponin 15 I) [facility] [employer] [id number] 12:50:00 Test Item Value Reference Range Interpretation Comments Glucose Lvl (test code = Glucose Lvl) 99 70-99 [facility] [employer]2023-02-21 12:50:00 Test Item Value Reference Range Interpretation Comments BUN (test code = BUN) 38 7-22 [facility] [employer]2023-02-21 12:50:00 Test Item Value Reference Range Interpretation Comments Creatinine Lvl (test code = Creatinine 2.38 0.50-1.40 Lvl) [facility] [employer] [id number] 12:50:00 Test Item Value Reference Range Interpretation Comments Sodium Lvl (test code = Sodium Lvl) 140 135-145 [facility] [employer]2023-02-21 12:50:00 Test Item Value Reference Range Interpretation Comments Potassium Lvl (test code = Potassium 3.9 3.5-5.1 Lvl) [facility] [employer]2023-02-21 12:50:00 Test Item Value Reference Range Interpretation Comments Chloride Lvl (test code = Chloride Lvl) 107 95-109 [place] 468413-02-21 12:50:00 Test Item Value Reference Range Interpretation Comments CO2 (test code = CO2) 27 24-32 [place] 468413-02-21 12:50:00 Test Item Value Reference Range Interpretation Comments Calcium Lvl (test code = Calcium Lvl) 8.1 8.5-10.5 [place] 468413-02-21 12:50:00 Test Item Value Reference Range Interpretation Comments AGAP (test code = AGAP) 9.9 10.0-20.0 [place] 468413-02-21 12:50:00 Test Item Value Reference Range Interpretation Comments eGFR (test code = eGFR) 20 [place] 468413-02-21 12:50:00 Test Item Value Reference Range Interpretation Comments Lactic Acid Lvl (test code = Lactic 0.7 0.5-2.2 Acid Lvl) [place] 468413-02-21 12:50:00 Test Item Value Reference Range Interpretation Comments Total Protein (test code = Total 6.1 6.4-8.4 Protein) [place] 468413-02-21 12:50:00 Test Item Value Reference Range Interpretation Comments Albumin Lvl (test code = Albumin Lvl) 2.9 3.5-5.0 [place] 468413-02-21 12:50:00 Test Item Value Reference Range Interpretation Comments Globulin (test code = Globulin) 3.2 2.7-4.2 [place] 468413-02-21 12:50:00 Test Item Value Reference Range Interpretation Comments A/G Ratio (test code = A/G Ratio) 0.9 1 0.7-1.6 [place] [address]-02-21 12:50:00 Test Item Value Reference Range Interpretation Comments ALT (test code = ALT) 16 See_Comment [Auto mated message] The system which ge nerated this result transmit sheba reference range : <=65. The reference range was not used to interpr et this result as edy l/abnormal. [place] 468413-02-21 12:50:00 Test Item Value Reference Range Interpretation Comments AST (test code = AST) 15 See_Comment [Auto mated message] The system which ge nerated this result transmit sheba reference range : <=37. The reference range was not used to interpr et this result as edy l/abnormal. [facility] [employer] [id number] 12:50:00 Test Item Value Reference Range Interpretation Comments Alk Phos (test code = Alk Phos) 96 39-136 [facility]Play[facility] [id number] 12:50:00 Test Item Value Reference Range Interpretation Comments Bili Total (test code = Bili Total) 0.2 0.2-1.3 [facility]Play[facility] [id number] 12:50:00 Test Item Value Reference Range Interpretation Comments Bili Direct (test code no gt See_Comment [Aut omated message] The = Bili Direct) system which generated this result tra nsmitted reference range : <=0.3. The reference r christiano was not used to int erpret this result as edy l/abnormal. [facility] [id number] 12:50:00 Test Item Value Reference Range Interpretation Comments Bili Indirect Unable to See_Comment [Automated (test code = Bili Calculate message] T he system Indirect) which generated this result transmitted reference range : <=1.0. The reference range was not used to interpret this result as normal/abnormal . [facility] ParkwayAqldfkaARJDBWOQG3709-22-50 12:50:00 Test Item Value Reference Range Interpretation Comments Ethanol Lvl (test code = Ethanol Lvl) no gt [facility] CenterReovkhwJNZXJWOEC7230-10-59 12:50:00 Test Item Value Reference Range Interpretation Comments Etoh (%) (test code = Etoh (%)) no gt [facility] ParkwayHncahtlMWCYPTTIF9027-74-03 12:50:00 Test Item Value Reference Range Interpretation Comments Lactic Acid Lvl (test code = Lactic 0.7 0.5-2.2 Acid Lvl) [facility] CenterLyghzmhYXMQHLFGP4239-46-49 12:50:00 Test Item Value Reference Range Interpretation Comments Total Protein (test code = Total 6.1 6.4-8.4 Protein) [facility] CenterXvhnjxvAPXXANSCP8719-09-23 12:50:00 Test Item Value Reference Range Interpretation Comments Albumin Lvl (test code = Albumin Lvl) 2.9 3.5-5.0 [facility] CenterMslomsqVIWRQYWAC0596-37-46 12:50:00 Test Item Value Reference Range Interpretation Comments Globulin (test code = Globulin) 3.2 2.7-4.2 [facility] ParkwayBbeiwqjISQAANAEO1337-95-59 12:50:00 Test Item Value Reference Range Interpretation Comments A/G Ratio (test code = A/G Ratio) 0.9 1 0.7-1.6 [facility] ParkwayXcczlhfUDQRJYQQE7494-97-92 12:50:00 Test Item Value Reference Range Interpretation Comments ALT (test code = ALT) 16 See_Comment [Auto mated message] The system which ge nerated this result transmit sheba reference range : <=65. The reference range was not used to interpr et this result as edy l/abnormal. [facility] ParkwayAsdoltdJVUYRNGXY0704-02-11 12:50:00 Test Item Value Reference Range Interpretation Comments AST (test code = AST) 15 See_Comment [Auto mated message] The system which ge nerated this result transmit sheba reference range : <=37. The reference range was not used to interpr et this result as edy l/abnormal. [facility] MwtbtggMTFEJHMJQ4342-49-53 12:50:00 Test Item Value Reference Range Interpretation Comments Alk Phos (test code = Alk Phos) 96 39-136 [facility] ParkwayPlgwhqpUVWGMODPB1905-23-24 12:50:00 Test Item Value Reference Range Interpretation Comments Bili Total (test code = Bili Total) 0.2 0.2-1.3 [facility] ParkwayOjcdsfhIELUCRAUI4804-34-84 12:50:00 Test Item Value Reference Range Interpretation Comments Bili Direct (test code no gt See_Comment [Aut omated message] The = Bili Direct) system which generated this result tra nsmitted reference range : <=0.3. The reference r christiano was not used to int erpret this result as edy l/abnormal. [facility] GrasrhxMMQFYZVOC6671-31-65 12:50:00 Test Item Value Reference Range Interpretation Comments Bili Indirect Unable to See_Comment [Automated (test code = Bili Calculate message] T he system Indirect) which generated this result transmitted reference range : <=1.0. The reference range was not used to interpret this result as normal/abnormal . [facility] KxuuczyBHHUNGESN4866-24-13 12:50:00 Test Item Value Reference Range Interpretation Comments HS Troponin I (test code = HS Troponin 15 I) [facility]XegmsziAWARNLZMH8530-72-51 12:50:00 Test Item Value Reference Range Interpretation Comments pH Justin (test code = pH Justin) 7.35 1 7.28-7.42 [place] 647753-02-21 12:50:00 Test Item Value Reference Range Interpretation Comments pCO2 Justin (test code = pCO2 Justin) 55 38-52 [place] 647753-02-21 12:50:00 Test Item Value Reference Range Interpretation Comments pO2 Justin (test code = pO2 Justin) 43 20-49 [place] 647753-02-21 12:50:00 Test Item Value Reference Range Interpretation Comments HCO3 Justin (test code = HCO3 Justin) 30 22-26 [place] [address]-02-21 12:50:00 Test Item Value Reference Range Interpretation Comments BE Justin (test code = BE Justin) 3 -2-2 [facility] KlebergTxglcliNLLYFQJKH7010-67-87 12:50:00 Test Item Value Reference Range Interpretation Comments O2 Sat Justin (calc) (test code = O2 Sat 75.9 40.0-70.0 Justin (calc)) [facility]bergNgqzenjHRXHQDSOQ1084-92-54 12:50:00 Test Item Value Reference Range Interpretation Comments Temp Justin (test code = Temp Justin) 37.0 [place] 391173-02-21 12:50:00 Test Item Value Reference Range Interpretation Comments ACT (TEG) Rapid (test code = ACT (TEG) 113 s 86-118 Rapid) [place] 391173-02-21 12:50:00 Test Item Value Reference Range Interpretation Comments Split Point Rapid (test code = Split 0.6 min Point Rapid) [place] 391173-02-21 12:50:00 Test Item Value Reference Range Interpretation Comments R-time Rapid (test code = R-time 0.7 min 0.4-0.7 Rapid) [place] 391173-02-21 12:50:00 Test Item Value Reference Range Interpretation Comments K-time Rapid (test code = K-time 1.1 min 0.6-2.3 Rapid) [place] 391173-02-21 12:50:00 Test Item Value Reference Range Interpretation Comments Angle Rapid (test code = Angle 78 degrees 64-80 Rapid) [place] 391173-02-21 12:50:00 Test Item Value Reference Range Interpretation Comments Max Amplitude Rapid (test code = Max 65 mm 52-71 Amplitude Rapid) [place] [address]-02-21 12:50:00 Test Item Value Reference Range Interpretation Comments G-value Rapid (test code = G-value 9.2 5.0-11.6 Rapid) [place] 391173-02-21 12:50:00 Test Item Value Reference Range Interpretation Comments Estimated % Lysis Rapid 0.0 See_Comment [Au tomated message] The (test code = Estimated syste m which generated % Lysis Rapid) this result t ransmitted reference range : <=7.5. The reference r christiano was not used to int erpret this result as normal/abnormal . [place] 391173-02-21 12:50:00 Test Item Value Reference Range Interpretation Comments Plt Morph (test code = See Note 1(11/21/22 Plt Morph) 6:50 AM) [place] [address]-02-21 12:50:00 Test Item Value Reference Range Interpretation Comments Stomatocyte (test code = Stomatocyte) slight [place] [address]-02-21 12:50:00 Test Item Value Reference Range Interpretation Comments WBC X 10x3 (test code = WBC X 10x3) 8.7 3.7-10.4 [place] [address]-02-21 12:50:00 Test Item Value Reference Range Interpretation Comments RBC X 10x6 (test code = RBC X 10x6) 3.56 4.20-5.40 [place] [address]-02-21 12:50:00 Test Item Value Reference Range Interpretation Comments Hgb (test code = Hgb) 10.4 12.0-16.0 [place] [address]-02-21 12:50:00 Test Item Value Reference Range Interpretation Comments Hct (test code = Hct) 32.3 36.0-48.0 [place] [address]-02-21 12:50:00 Test Item Value Reference Range Interpretation Comments MCV (test code = MCV) 90.8 80.0-98.0 [place] [address]-02-21 12:50:00 Test Item Value Reference Range Interpretation Comments MCH (test code = MCH) 29.3 pg 27.0-31.0 [place] [address]-02-21 12:50:00 Test Item Value Reference Range Interpretation Comments MCHC (test code = MCHC) 32.2 32.0-36.0 [place] [address]-02-21 12:50:00 Test Item Value Reference Range Interpretation Comments RDW (test code = RDW) 13.7 11.5-14.5 [place] [address]-02-21 12:50:00 Test Item Value Reference Range Interpretation Comments Platelet (test code = Platelet) 137 133-450 [place] 391173-02-21 12:50:00 Test Item Value Reference Range Interpretation Comments MPV (test code = MPV) 7.9 7.4-10.4 [place] [address]-02-21 12:50:00 Test Item Value Reference Range Interpretation Comments ACT (TEG) Rapid (test code = ACT (TEG) 113 s 86-118 Rapid) [place] 391173-02-21 12:50:00 Test Item Value Reference Range Interpretation Comments Split Point Rapid (test code = Split 0.6 min Point Rapid) [place] [address]-02-21 12:50:00 Test Item Value Reference Range Interpretation Comments R-time Rapid (test code = R-time 0.7 min 0.4-0.7 Rapid) [place] [address]-02-21 12:50:00 Test Item Value Reference Range Interpretation Comments K-time Rapid (test code = K-time 1.1 min 0.6-2.3 Rapid) [place] [address]-02-21 12:50:00 Test Item Value Reference Range Interpretation Comments Angle Rapid (test code = Angle 78 degrees 64-80 Rapid) [place] [address]-02-21 12:50:00 Test Item Value Reference Range Interpretation Comments Max Amplitude Rapid (test code = Max 65 mm 52-71 Amplitude Rapid) [place] [address]-02-21 12:50:00 Test Item Value Reference Range Interpretation Comments G-value Rapid (test code = G-value 9.2 5.0-11.6 Rapid) [place] [address]-02-21 12:50:00 Test Item Value Reference Range Interpretation Comments Estimated % Lysis Rapid 0.0 See_Comment [Au tomated message] The (test code = Estimated syste m which generated % Lysis Rapid) this result t ransmitted reference range : <=7.5. The reference r christiano was not used to int erpret this result as normal/abnormal . [facility] McAllenMheljcdVPZWMSKADB2359-55-73 12:50:00 Test Item Value Reference Range Interpretation Comments Plt Morph (test code = See Note 1(11/21/22 Plt Morph) 6:50 AM) [place] 391173-02-21 12:50:00 Test Item Value Reference Range Interpretation Comments Segs (test code = Segs) 64.1 45.0-75.0 [place] 391173-02-21 12:50:00 Test Item Value Reference Range Interpretation Comments Lymphocytes (test code = Lymphocytes) 22.0 20.0-40.0 [place] 391173-02-21 12:50:00 Test Item Value Reference Range Interpretation Comments Monocytes (test code = Monocytes) 8.3 2.0-12.0 [place] 391173-02-21 12:50:00 Test Item Value Reference Range Interpretation Comments Eosinophils (test code = 4.7 See_Comment [A utomated message] The Eosinophils) system which ge nerated this result tra nsmitted reference range : <=4.0. The reference r christiano was not used to int erpret this result as normal/abnormal . [facility] McAllenHnlxlqwUYHNPKXCLF8331-68-22 12:50:00 Test Item Value Reference Range Interpretation Comments Basophils (test code = 0.9 See_Comment [Aut omated message] The Basophils) system which ge nerated this result tra nsmitted reference range : <=1.0. The reference r christiano was not used to int erpret this result as normal/abnormal . [facility] McAllenIbvkcsmYQRDDGENDV3102-46-06 12:50:00 Test Item Value Reference Range Interpretation Comments Neutrophils # (test code = Neutrophils 5.6 1.5-8.1 #) [place] 391173-02-21 12:50:00 Test Item Value Reference Range Interpretation Comments Lymphocytes # (test code = Lymphocytes 1.9 1.0-5.5 #) [place] 391173-02-21 12:50:00 Test Item Value Reference Range Interpretation Comments Monocytes # (test code 0.7 See_Comment [Aut omated message] The = Monocytes #) system which generated this result tra nsmitted reference range : <=0.8. The reference r christiano was not used to int erpret this result as normal/abnormal . [facility] LnzjkuzIGEPMSPHCA0696-81-67 12:50:00 Test Item Value Reference Range Interpretation Comments Eosinophils # (test code 0.4 See_Comment [A utomated message] The = Eosinophils #) system whic h generated this result tra nsmitted reference range : <=0.5. The reference r christiano was not used to int erpret this result as normal/abnormal . [facility] UfinjyuPXWKIXOECZ1031-34-79 12:50:00 Test Item Value Reference Range Interpretation Comments Basophils # (test code 0.1 See_Comment [Aut omated message] The = Basophils #) system which generated this result tra nsmitted reference range : <=0.2. The reference r christiano was not used to int erpret this result as normal/abnormal . [facility] RkassuhNVYISADCEV9646-83-55 12:50:00 Test Item Value Reference Range Interpretation Comments Stomatocyte (test code = Stomatocyte) slight [facility] TnaeoyaVMMPGPIRVZ7903-07-61 12:50:00 Test Item Value Reference Range Interpretation Comments Ethanol Lvl (test code = Ethanol Lvl) no gt [facility] WhgniulPSMHDLXUPP3380-32-63 12:50:00 Test Item Value Reference Range Interpretation Comments Etoh (%) (test code = Etoh (%)) no gt Echo it [id number] 12:50:00 Test Item Value Reference Range Interpretation Comments ABO/Rh (test code = ABO/Rh) O POS Echo it [id number] 12:50:00 Test Item Value Reference Range Interpretation Comments Antibody Scrn (test Negative (11/21/22 6:50 code = Antibody Scrn) AM) [facility] [employer] [id number] 12:50:00 Test Item Value Reference Range Interpretation Comments ABO/Rh (test code = ABO/Rh) O POS Echo it [id number] 12:50:00 Test Item Value Reference Range Interpretation Comments Antibody Scrn (test Negative (11/21/22 6:50 code = Antibody Scrn) AM) gumiDIAC [id number] 12:50:00 Test Item Value Reference Range Interpretation Comments HS Troponin I (test code = HS Troponin 15 I) [facility] [id number] 12:50:00 Test Item Value Reference Range Interpretation Comments Glucose Lvl (test code = Glucose Lvl) 99 70-99 [facility] [id number] 12:50:00 Test Item Value Reference Range Interpretation Comments BUN (test code = BUN) 38 7-22 [facility] [id number] 12:50:00 Test Item Value Reference Range Interpretation Comments Creatinine Lvl (test code = Creatinine 2.38 0.50-1.40 Lvl) [facility] [id number] 12:50:00 Test Item Value Reference Range Interpretation Comments Sodium Lvl (test code = Sodium Lvl) 140 135-145 [facility] [id number] 12:50:00 Test Item Value Reference Range Interpretation Comments Potassium Lvl (test code = Potassium 3.9 3.5-5.1 Lvl) [facility] [id number] 12:50:00 Test Item Value Reference Range Interpretation Comments Chloride Lvl (test code = Chloride Lvl) 107 95-109 [facility] [id number] 12:50:00 Test Item Value Reference Range Interpretation Comments CO2 (test code = CO2) 27 24-32 [facility]2023-02-21 12:50:00 Test Item Value Reference Range Interpretation Comments Calcium Lvl (test code = Calcium Lvl) 8.1 8.5-10.5 [facility]2023-02-21 12:50:00 Test Item Value Reference Range Interpretation Comments AGAP (test code = AGAP) 9.9 10.0-20.0 [facility]2023-02-21 12:50:00 Test Item Value Reference Range Interpretation Comments eGFR (test code = eGFR) 20 [facility]2023-02-21 12:50:00 Test Item Value Reference Range Interpretation Comments Lactic Acid Lvl (test code = Lactic 0.7 0.5-2.2 Acid Lvl) [facility]2023-02-21 12:50:00 Test Item Value Reference Range Interpretation Comments Total Protein (test code = Total 6.1 6.4-8.4 Protein) [place] [address]-02-21 12:50:00 Test Item Value Reference Range Interpretation Comments Albumin Lvl (test code = Albumin Lvl) 2.9 3.5-5.0 [place] [address]-02-21 12:50:00 Test Item Value Reference Range Interpretation Comments Globulin (test code = Globulin) 3.2 2.7-4.2 [place] [address]-02-21 12:50:00 Test Item Value Reference Range Interpretation Comments A/G Ratio (test code = A/G Ratio) 0.9 1 0.7-1.6 [place] [address]-02-21 12:50:00 Test Item Value Reference Range Interpretation Comments ALT (test code = ALT) 16 See_Comment [Auto mated message] The system which ge nerated this result transmit sheba reference range : <=65. The reference range was not used to interpr et this result as edy l/abnormal. [facility] [id number] 12:50:00 Test Item Value Reference Range Interpretation Comments AST (test code = AST) 15 See_Comment [Auto mated message] The system which ge nerated this result transmit sheba reference range : <=37. The reference range was not used to interpr et this result as edy l/abnormal. [facility] [id number] 12:50:00 Test Item Value Reference Range Interpretation Comments Alk Phos (test code = Alk Phos) 96 39-136 [facility] [id number] 12:50:00 Test Item Value Reference Range Interpretation Comments Bili Total (test code = Bili Total) 0.2 0.2-1.3 [place] [address]-02-21 12:50:00 Test Item Value Reference Range Interpretation Comments Bili Direct (test code no gt See_Comment [Aut omated message] The = Bili Direct) system which generated this result tra nsmitted reference range : <=0.3. The reference r christiano was not used to int erpret this result as edy l/abnormal. [facility] [id number] 12:50:00 Test Item Value Reference Range Interpretation Comments Bili Indirect Unable to See_Comment [Automated (test code = Bili Calculate message] T he system Indirect) which generated this result transmitted reference range : <=1.0. The reference range was not used to interpret this result as normal/abnormal . [facility]bergWiuhngwEFQPAKJRW2561-66-61 12:50:00 Test Item Value Reference Range Interpretation Comments Ethanol Lvl (test code = Ethanol Lvl) no gt [facility] KlebergBvratpsZVHNXGMHE5297-83-58 12:50:00 Test Item Value Reference Range Interpretation Comments Etoh (%) (test code = Etoh (%)) no gt [facility] KlebergYmeupdiPMWUNKJLB5346-00-93 12:50:00 Test Item Value Reference Range Interpretation Comments Lactic Acid Lvl (test code = Lactic 0.7 0.5-2.2 Acid Lvl) [place] 647753-02-21 12:50:00 Test Item Value Reference Range Interpretation Comments Total Protein (test code = Total 6.1 6.4-8.4 Protein) [facility] KlebergHfublbpDXUAQQIPZ3364-73-84 12:50:00 Test Item Value Reference Range Interpretation Comments Albumin Lvl (test code = Albumin Lvl) 2.9 3.5-5.0 [place] [address]-02-21 12:50:00 Test Item Value Reference Range Interpretation Comments Globulin (test code = Globulin) 3.2 2.7-4.2 [place] 647753-02-21 12:50:00 Test Item Value Reference Range Interpretation Comments A/G Ratio (test code = A/G Ratio) 0.9 1 0.7-1.6 [place] [address]-02-21 12:50:00 Test Item Value Reference Range Interpretation Comments ALT (test code = ALT) 16 See_Comment [Auto mated message] The system which nerated this result transmit sheba reference range : <=65. The reference range was not used to interpr et this result as edy l/abnormal. [facility] KlebergPjernlsPOACKTAGL3247-47-57 12:50:00 Test Item Value Reference Range Interpretation Comments AST (test code = AST) 15 See_Comment [Auto mated message] The system which ge nerated this result transmit sheba reference range : <=37. The reference range was not used to interpr et this result as edy l/abnormal. [place] 647753-02-21 12:50:00 Test Item Value Reference Range Interpretation Comments Alk Phos (test code = Alk Phos) 96 39-136 [facility] KlebergDvthvkqGMOBFHOJV0413-95-88 12:50:00 Test Item Value Reference Range Interpretation Comments Bili Total (test code = Bili Total) 0.2 0.2-1.3 [place] 647753-02-21 12:50:00 Test Item Value Reference Range Interpretation Comments Bili Direct (test code no gt See_Comment [Aut omated message] The = Bili Direct) system which generated this result tra nsmitted reference range : <=0.3. The reference r christiano was not used to int erpret this result as edy l/abnormal. [facility] KlebergWylttygHHUYWPBIL9485-25-15 12:50:00 Test Item Value Reference Range Interpretation Comments Bili Indirect Unable to See_Comment [Automated (test code = Bili Calculate message] T he system Indirect) which generated this result transmitted reference range : <=1.0. The reference range was not used to interpret this result as normal/abnormal . [facility] KlebergRfrpaonQLXGYJUFK4264-81-49 12:50:00 Test Item Value Reference Range Interpretation Comments HS Troponin I (test code = HS Troponin 15 I) [facility] KlebergVekgqiuBCETPFKTJ8561-95-03 12:50:00 Test Item Value Reference Range Interpretation Comments pH Justin (test code = pH Justin) 7.35 1 7.28-7.42 [facility] KlebergUtwadxbREZPPBNSC0626-48-18 12:50:00 Test Item Value Reference Range Interpretation Comments pCO2 Justin (test code = pCO2 Justin) 55 38-52 [facility] KlebergRnjidrhNTKBESEDE4832-15-49 12:50:00 Test Item Value Reference Range Interpretation Comments pO2 Justin (test code = pO2 Justin) 43 20-49 [place] 647753-02-21 12:50:00 Test Item Value Reference Range Interpretation Comments HCO3 Justin (test code = HCO3 Justin) 30 22-26 [facility] KlebergYmmtbxdNIIUOWNNV8255-03-06 12:50:00 Test Item Value Reference Range Interpretation Comments BE Justin (test code = BE Justin) 3 -2-2 [place] 647753-02-21 12:50:00 Test Item Value Reference Range Interpretation Comments O2 Sat Justin (calc) (test code = O2 Sat 75.9 40.0-70.0 Justin (calc)) [facility] KlebergZtmxsrxGQZFUDMCH0467-73-85 12:50:00 Test Item Value Reference Range Interpretation Comments Temp Justin (test code = Temp Justin) 37.0 [facility]AllenEszrmppWSJAWEUWPW1245-95-40 12:50:00 Test Item Value Reference Range Interpretation Comments ACT (TEG) Rapid (test code = ACT (TEG) 113 s 86-118 Rapid) [facility] McAllenCtpnjbnVJNUQONURD3897-06-07 12:50:00 Test Item Value Reference Range Interpretation Comments Split Point Rapid (test code = Split 0.6 min Point Rapid) [facility] McAllenTbarnumPUPGJAPIRZ3201-31-88 12:50:00 Test Item Value Reference Range Interpretation Comments R-time Rapid (test code = R-time 0.7 min 0.4-0.7 Rapid) [place] 391173-02-21 12:50:00 Test Item Value Reference Range Interpretation Comments K-time Rapid (test code = K-time 1.1 min 0.6-2.3 Rapid) [facility] McAllenBmhilnbFOEUUZESKH8270-07-47 12:50:00 Test Item Value Reference Range Interpretation Comments Angle Rapid (test code = Angle 78 degrees 64-80 Rapid) [facility] McAllenKnlstxhVMALWHWTAI9623-24-34 12:50:00 Test Item Value Reference Range Interpretation Comments Max Amplitude Rapid (test code = Max 65 mm 52-71 Amplitude Rapid) [facility] McAllenInjcbcqHKIJLSWRCD3809-03-66 12:50:00 Test Item Value Reference Range Interpretation Comments G-value Rapid (test code = G-value 9.2 5.0-11.6 Rapid) [facility] McAllenAwgpymyCYXFSUTTBC9045-14-90 12:50:00 Test Item Value Reference Range Interpretation Comments Estimated % Lysis Rapid 0.0 See_Comment [Au tomated message] The (test code = Estimated syste m which generated % Lysis Rapid) this result t ransmitted reference range : <=7.5. The reference r christiano was not used to int erpret this result as normal/abnormal . [facility] McAllenZtmjlowAYNOODNMFI7212-18-63 12:50:00 Test Item Value Reference Range Interpretation Comments Plt Morph (test code = See Note 1(11/21/22 Plt Morph) 6:50 AM) [facility] McAllenTwxylddMWMNIFBHDZ1069-77-88 12:50:00 Test Item Value Reference Range Interpretation Comments Stomatocyte (test code = Stomatocyte) slight [place] 391173-02-21 12:50:00 Test Item Value Reference Range Interpretation Comments WBC X 10x3 (test code = WBC X 10x3) 8.7 3.7-10.4 [place] 391173-02-21 12:50:00 Test Item Value Reference Range Interpretation Comments RBC X 10x6 (test code = RBC X 10x6) 3.56 4.20-5.40 [place] 391173-02-21 12:50:00 Test Item Value Reference Range Interpretation Comments Hgb (test code = Hgb) 10.4 12.0-16.0 [place] [address]-02-21 12:50:00 Test Item Value Reference Range Interpretation Comments Hct (test code = Hct) 32.3 36.0-48.0 [place] 391173-02-21 12:50:00 Test Item Value Reference Range Interpretation Comments MCV (test code = MCV) 90.8 80.0-98.0 [place] 391173-02-21 12:50:00 Test Item Value Reference Range Interpretation Comments MCH (test code = MCH) 29.3 pg 27.0-31.0 [facility] McAllenWrhtpqbZBJPPIEXNW2576-98-67 12:50:00 Test Item Value Reference Range Interpretation Comments MCHC (test code = MCHC) 32.2 32.0-36.0 [facility] McAllenMubzunfVOMOWUVOFM6980-60-65 12:50:00 Test Item Value Reference Range Interpretation Comments RDW (test code = RDW) 13.7 11.5-14.5 [facility] McAllenVokntszWQRQSGUUHI8825-70-71 12:50:00 Test Item Value Reference Range Interpretation Comments Platelet (test code = Platelet) 137 133-450 [place] 391173-02-21 12:50:00 Test Item Value Reference Range Interpretation Comments MPV (test code = MPV) 7.9 7.4-10.4 [place] [address]-02-21 12:50:00 Test Item Value Reference Range Interpretation Comments ACT (TEG) Rapid (test code = ACT (TEG) 113 s 86-118 Rapid) [facility] McAllenPokwmpjBLOLCOLQNN9792-59-93 12:50:00 Test Item Value Reference Range Interpretation Comments Split Point Rapid (test code = Split 0.6 min Point Rapid) [place] [address]-02-21 12:50:00 Test Item Value Reference Range Interpretation Comments R-time Rapid (test code = R-time 0.7 min 0.4-0.7 Rapid) [place] [address]-02-21 12:50:00 Test Item Value Reference Range Interpretation Comments K-time Rapid (test code = K-time 1.1 min 0.6-2.3 Rapid) [place] [address]-02-21 12:50:00 Test Item Value Reference Range Interpretation Comments Angle Rapid (test code = Angle 78 degrees 64-80 Rapid) [place] [address]-02-21 12:50:00 Test Item Value Reference Range Interpretation Comments Max Amplitude Rapid (test code = Max 65 mm 52-71 Amplitude Rapid) [place] [address]-02-21 12:50:00 Test Item Value Reference Range Interpretation Comments G-value Rapid (test code = G-value 9.2 5.0-11.6 Rapid) [place] [address]-02-21 12:50:00 Test Item Value Reference Range Interpretation Comments Estimated % Lysis Rapid 0.0 See_Comment [Au tomated message] The (test code = Estimated syste m which generated % Lysis Rapid) this result t ransmitted reference range : <=7.5. The reference r christiano was not used to int erpret this result as normal/abnormal . [place] 391173-02-21 12:50:00 Test Item Value Reference Range Interpretation Comments Plt Morph (test code = See Note 1(11/21/22 Plt Morph) 6:50 AM) [place] [address]-02-21 12:50:00 Test Item Value Reference Range Interpretation Comments Segs (test code = Segs) 64.1 45.0-75.0 [place] [address]-02-21 12:50:00 Test Item Value Reference Range Interpretation Comments Lymphocytes (test code = Lymphocytes) 22.0 20.0-40.0 [place] [address]-02-21 12:50:00 Test Item Value Reference Range Interpretation Comments Monocytes (test code = Monocytes) 8.3 2.0-12.0 [place] [address]-02-21 12:50:00 Test Item Value Reference Range Interpretation Comments Eosinophils (test code = 4.7 See_Comment [A utomated message] The Eosinophils) system which ge nerated this result tra nsmitted reference range : <=4.0. The reference r christiano was not used to int erpret this result as normal/abnormal . [place] 391173-02-21 12:50:00 Test Item Value Reference Range Interpretation Comments Basophils (test code = 0.9 See_Comment [Aut omated message] The Basophils) system which ge nerated this result tra nsmitted reference range : <=1.0. The reference r christiano was not used to int erpret this result as normal/abnormal . [place] 391173-02-21 12:50:00 Test Item Value Reference Range Interpretation Comments Neutrophils # (test code = Neutrophils 5.6 1.5-8.1 #) [place] 391173-02-21 12:50:00 Test Item Value Reference Range Interpretation Comments Lymphocytes # (test code = Lymphocytes 1.9 1.0-5.5 #) [place] 391173-02-21 12:50:00 Test Item Value Reference Range Interpretation Comments Monocytes # (test code 0.7 See_Comment [Aut omated message] The = Monocytes #) system which generated this result tra nsmitted reference range : <=0.8. The reference r christiano was not used to int erpret this result as normal/abnormal . [facility]PtiojhzFGCHTCODKA8761-64-90 12:50:00 Test Item Value Reference Range Interpretation Comments Eosinophils # (test code 0.4 See_Comment [A utomated message] The = Eosinophils #) system [facility] h generated this result tra nsmitted reference range : <=0.5. The reference r christiano was not used to int erpret this result as normal/abnormal . [place] 391173-02-21 12:50:00 Test Item Value Reference Range Interpretation Comments Basophils # (test code 0.1 See_Comment [Aut omated message] The = Basophils #) system which generated this result tra nsmitted reference range : <=0.2. The reference r christiano was not used to int erpret this result as normal/abnormal . [place] 391173-02-21 12:50:00 Test Item Value Reference Range Interpretation Comments Stomatocyte (test code = Stomatocyte) slight [facility]KarhbbhFFGERBYDKI1347-95-[facility] 12:50:00 Test Item Value Reference Range Interpretation Comments Ethanol Lvl (test code = Ethanol Lvl) no gt [facility] YjqmtnjVHYNUJBUVQ1371-04-78 12:50:00 Test Item Value Reference Range Interpretation Comments Etoh (%) (test code = Etoh (%)) no gt [facility] [employer] [id number] 12:50:00 Test Item Value Reference Range Interpretation Comments ABO/Rh (test code = ABO/Rh) O POS [facility] [employer] [id number] 12:50:00 Test Item Value Reference Range Interpretation Comments Antibody Scrn (test Negative (11/21/22 6:50 code = Antibody Scrn) AM) [facility] [employer] [id number] 12:50:00 Test Item Value Reference Range Interpretation Comments ABO/Rh (test code = ABO/Rh) O POS [facility] [employer] [id number] 12:50:00 Test Item Value Reference Range Interpretation Comments Antibody Scrn (test Negative (11/21/22 6:50 code = Antibody Scrn) AM) [facility] [employer] [id number] 12:50:00 Test Item Value Reference Range Interpretation Comments HS Troponin I (test code = HS Troponin 15 I) [place] ZIPOD1362-12-17 12:50:00 Test Item Value Reference Range Interpretation Comments Glucose Lvl (test code = Glucose Lvl) 99 70-99 [facility] [employer]2023-02-21 12:50:00 Test Item Value Reference Range Interpretation Comments BUN (test code = BUN) 38 7-22 [facility] [employer]2023-02-21 12:50:00 Test Item Value Reference Range Interpretation Comments Creatinine Lvl (test code = Creatinine 2.38 0.50-1.40 Lvl) [employer]2023-02-21 12:50:00 Test Item Value Reference Range Interpretation Comments Sodium Lvl (test code = Sodium Lvl) 140 135-145 [facility] [employer]2023-02-21 12:50:00 Test Item Value Reference Range Interpretation Comments Potassium Lvl (test code = Potassium 3.9 3.5-5.1 Lvl) [employer]2023-02-21 12:50:00 Test Item Value Reference Range Interpretation Comments Chloride Lvl (test code = Chloride Lvl) 107 95-109 [place] 468413-02-21 12:50:00 Test Item Value Reference Range Interpretation Comments CO2 (test code = CO2) 27 24-32 [place] 468413-02-21 12:50:00 Test Item Value Reference Range Interpretation Comments Calcium Lvl (test code = Calcium Lvl) 8.1 8.5-10.5 [place] 468413-02-21 12:50:00 Test Item Value Reference Range Interpretation Comments AGAP (test code = AGAP) 9.9 10.0-20.0 [place] 468413-02-21 12:50:00 Test Item Value Reference Range Interpretation Comments eGFR (test code = eGFR) 20 [place] 468413-02-21 12:50:00 Test Item Value Reference Range Interpretation Comments Lactic Acid Lvl (test code = Lactic 0.7 0.5-2.2 Acid Lvl) [place] 468413-02-21 12:50:00 Test Item Value Reference Range Interpretation Comments Total Protein (test code = Total 6.1 6.4-8.4 Protein) [place] 468413-02-21 12:50:00 Test Item Value Reference Range Interpretation Comments Albumin Lvl (test code = Albumin Lvl) 2.9 3.5-5.0 [place] [address]-02-21 12:50:00 Test Item Value Reference Range Interpretation Comments Globulin (test code = Globulin) 3.2 2.7-4.2 [place] [address]-02-21 12:50:00 Test Item Value Reference Range Interpretation Comments A/G Ratio (test code = A/G Ratio) 0.9 1 0.7-1.6 [place] [address]-02-21 12:50:00 Test Item Value Reference Range Interpretation Comments ALT (test code = ALT) 16 See_Comment [Auto mated message] The system which ge nerated this result transmit sheba reference range : <=65. The reference range was not used to interpr et this result as edy l/abnormal. [place] 468413-02-21 12:50:00 Test Item Value Reference Range Interpretation Comments AST (test code = AST) 15 See_Comment [Auto mated message] The system which ge nerated this result transmit sheba reference range : <=37. The reference range was not used to interpr et this result as edy l/abnormal. [facility] [employer] [id number] 12:50:00 Test Item Value Reference Range Interpretation Comments Alk Phos (test code = Alk Phos) 96 39-136 [facility] [id number] 12:50:00 Test Item Value Reference Range Interpretation Comments Bili Total (test code = Bili Total) 0.2 0.2-1.3 [facility] [id number] 12:50:00 Test Item Value Reference Range Interpretation Comments Bili Direct (test code no gt See_Comment [Aut omated message] The = Bili Direct) system which generated this result tra nsmitted reference range : <=0.3. The reference r christiano was not used to int erpret this result as edy l/abnormal. [facility] [employer] [id number] 12:50:00 Test Item Value Reference Range Interpretation Comments Bili Indirect Unable to See_Comment [Automated (test code = Bili Calculate message] T he system Indirect) which generated this result transmitted reference range : <=1.0. The reference range was not used to interpret this result as normal/abnormal . [facility] ParkwayFpqbbnzFDGAAIZMD2931-62-95 12:50:00 Test Item Value Reference Range Interpretation Comments Ethanol Lvl (test code = Ethanol Lvl) no gt [facility] ParkwayGkxicgtWGHMDDSTB7503-20-83 12:50:00 Test Item Value Reference Range Interpretation Comments Etoh (%) (test code = Etoh (%)) no gt [facility] ParkwayPtrfuogEOSZSECMC8430-92-27 12:50:00 Test Item Value Reference Range Interpretation Comments Lactic Acid Lvl (test code = Lactic 0.7 0.5-2.2 Acid Lvl) [facility] ParkwayNdkqqroNGBHPFHWQ0884-13-34 12:50:00 Test Item Value Reference Range Interpretation Comments Total Protein (test code = Total 6.1 6.4-8.4 Protein) [facility] ParkwayAicgyndNNHAHSQUO7152-16-81 12:50:00 Test Item Value Reference Range Interpretation Comments Albumin Lvl (test code = Albumin Lvl) 2.9 3.5-5.0 [facility] ParkwayEuyhxypWAPJSDLBY9406-20-76 12:50:00 Test Item Value Reference Range Interpretation Comments Globulin (test code = Globulin) 3.2 2.7-4.2 [facility]HtmwfdsCLSJBQWJA2759-79-88 12:50:00 Test Item Value Reference Range Interpretation Comments A/G Ratio (test code = A/G Ratio) 0.9 1 0.7-1.6 [facility] KlebergDywmgecKVUCDZGUI1551-42-71 12:50:00 Test Item Value Reference Range Interpretation Comments ALT (test code = ALT) 16 See_Comment [Auto mated message] The system which ge nerated this result transmit sheba reference range : <=65. The reference range was not used to interpr et this result as edy l/abnormal. [facility] ParkwayJsdydanMOKJDJXSG9101-72-13 12:50:00 Test Item Value Reference Range Interpretation Comments AST (test code = AST) 15 See_Comment [Auto mated message] The system which ge nerated this result transmit sheba reference range : <=37. The reference range was not used to interpr et this result as edy l/abnormal. [facility] ParkwayKnscbyjLXQNJOPHS9252-41-99 12:50:00 Test Item Value Reference Range Interpretation Comments Alk Phos (test code = Alk Phos) 96 39-136 [facility] ParkwayHlubojvVCYPQEAPL3644-80-06 12:50:00 Test Item Value Reference Range Interpretation Comments Bili Total (test code = Bili Total) 0.2 0.2-1.3 [facility] KlebergLgwvnhgHPLICUPKN1465-99-56 12:50:00 Test Item Value Reference Range Interpretation Comments Bili Direct (test code no gt See_Comment [Aut omated message] The = Bili Direct) system which generated this result tra nsmitted reference range : <=0.3. The reference r christiano was not used to int erpret this result as edy l/abnormal. [facility] ParkwayUdupfkrIJGAUPXZO5123-15-93 12:50:00 Test Item Value Reference Range Interpretation Comments Bili Indirect Unable to See_Comment [Automated (test code = Bili Calculate message] T he system Indirect) which generated this result transmitted reference range : <=1.0. The reference range was not used to interpret this result as normal/abnormal . [facility] ParkwayLguvuacIPXRICYSK6841-53-75 12:50:00 Test Item Value Reference Range Interpretation Comments HS Troponin I (test code = HS Troponin 15 I) [facility]bergBnhzaxfJKNROUSYA4027-29-12 12:50:00 Test Item Value Reference Range Interpretation Comments pH Justin (test code = pH Justin) 7.35 1 7.28-7.42 [place] [address]-02-21 12:50:00 Test Item Value Reference Range Interpretation Comments pCO2 Justin (test code = pCO2 Justin) 55 38-52 [place] 647753-02-21 12:50:00 Test Item Value Reference Range Interpretation Comments pO2 Justin (test code = pO2 Justin) 43 20-49 [place] 647753-02-21 12:50:00 Test Item Value Reference Range Interpretation Comments HCO3 Justin (test code = HCO3 Justin) 30 22-26 [place] 647753-02-21 12:50:00 Test Item Value Reference Range Interpretation Comments BE Justin (test code = BE Justin) 3 -2-2 [place] 647753-02-21 12:50:00 Test Item Value Reference Range Interpretation Comments O2 Sat Justin (calc) (test code = O2 Sat 75.9 40.0-70.0 Justin (calc)) [facility]bergTdwdrqxZCGOIQNSL4913-99-41 12:50:00 Test Item Value Reference Range Interpretation Comments Temp Justin (test code = Temp Justin) 37.0 [place] 391173-02-21 12:50:00 Test Item Value Reference Range Interpretation Comments ACT (TEG) Rapid (test code = ACT (TEG) 113 s 86-118 Rapid) [place] 391173-02-21 12:50:00 Test Item Value Reference Range Interpretation Comments Split Point Rapid (test code = Split 0.6 min Point Rapid) [place] 391173-02-21 12:50:00 Test Item Value Reference Range Interpretation Comments R-time Rapid (test code = R-time 0.7 min 0.4-0.7 Rapid) [place] 391173-02-21 12:50:00 Test Item Value Reference Range Interpretation Comments K-time Rapid (test code = K-time 1.1 min 0.6-2.3 Rapid) [place] 391173-02-21 12:50:00 Test Item Value Reference Range Interpretation Comments Angle Rapid (test code = Angle 78 degrees 64-80 Rapid) [place] 391173-02-21 12:50:00 Test Item Value Reference Range Interpretation Comments Max Amplitude Rapid (test code = Max 65 mm 52-71 Amplitude Rapid) [place] 391173-02-21 12:50:00 Test Item Value Reference Range Interpretation Comments G-value Rapid (test code = G-value 9.2 5.0-11.6 Rapid) [facility]AllenMbbqzprGVBYBJKOTH0626-44-69 12:50:00 Test Item Value Reference Range Interpretation Comments Estimated % Lysis Rapid 0.0 See_Comment [Au tomated message] The (test code = Estimated syste m which generated % Lysis Rapid) this result t ransmitted reference range : <=7.5. The reference r christiano was not used to int erpret this result as normal/abnormal . [facility] McAllenZjooiijKMPOUPRXYU9606-82-76 12:50:00 Test Item Value Reference Range Interpretation Comments Plt Morph (test code = See Note 1(11/21/22 Plt Morph) 6:50 AM) [place] 391173-02-21 12:50:00 Test Item Value Reference Range Interpretation Comments Stomatocyte (test code = Stomatocyte) slight [facility] McAllenRqpecwvPLBZJFWLGL7427-65-23 12:50:00 Test Item Value Reference Range Interpretation Comments WBC X 10x3 (test code = WBC X 10x3) 8.7 3.7-10.4 [place] 391173-02-21 12:50:00 Test Item Value Reference Range Interpretation Comments RBC X 10x6 (test code = RBC X 10x6) 3.56 4.20-5.40 [place] 391173-02-21 12:50:00 Test Item Value Reference Range Interpretation Comments Hgb (test code = Hgb) 10.4 12.0-16.0 [place] [address]-02-21 12:50:00 Test Item Value Reference Range Interpretation Comments Hct (test code = Hct) 32.3 36.0-48.0 [place] [address]-02-21 12:50:00 Test Item Value Reference Range Interpretation Comments MCV (test code = MCV) 90.8 80.0-98.0 [place] 391173-02-21 12:50:00 Test Item Value Reference Range Interpretation Comments MCH (test code = MCH) 29.3 pg 27.0-31.0 [place] [address]-02-21 12:50:00 Test Item Value Reference Range Interpretation Comments MCHC (test code = MCHC) 32.2 32.0-36.0 [place] [address]-02-21 12:50:00 Test Item Value Reference Range Interpretation Comments RDW (test code = RDW) 13.7 11.5-14.5 [place] [address]-02-21 12:50:00 Test Item Value Reference Range Interpretation Comments Platelet (test code = Platelet) 137 133-450 [place] [address]-02-21 12:50:00 Test Item Value Reference Range Interpretation Comments MPV (test code = MPV) 7.9 7.4-10.4 [place] [address]-02-21 12:50:00 Test Item Value Reference Range Interpretation Comments ACT (TEG) Rapid (test code = ACT (TEG) 113 s 86-118 Rapid) [place] [address]-02-21 12:50:00 Test Item Value Reference Range Interpretation Comments Split Point Rapid (test code = Split 0.6 min Point Rapid) [place] [address]-02-21 12:50:00 Test Item Value Reference Range Interpretation Comments R-time Rapid (test code = R-time 0.7 min 0.4-0.7 Rapid) [place] [address]-02-21 12:50:00 Test Item Value Reference Range Interpretation Comments K-time Rapid (test code = K-time 1.1 min 0.6-2.3 Rapid) [place] [address]-02-21 12:50:00 Test Item Value Reference Range Interpretation Comments Angle Rapid (test code = Angle 78 degrees 64-80 Rapid) [place] [address]-02-21 12:50:00 Test Item Value Reference Range Interpretation Comments Max Amplitude Rapid (test code = Max 65 mm 52-71 Amplitude Rapid) [place] [address]-02-21 12:50:00 Test Item Value Reference Range Interpretation Comments G-value Rapid (test code = G-value 9.2 5.0-11.6 Rapid) [place] [address]-02-21 12:50:00 Test Item Value Reference Range Interpretation Comments Estimated % Lysis Rapid 0.0 See_Comment [Au tomated message] The (test code = Estimated syste m which generated % Lysis Rapid) this result t ransmitted reference range : <=7.5. The reference r christiano was not used to int erpret this result as normal/abnormal . [facility] McAllenRfucdlkCECTIDQRWP1071-38-14 12:50:00 Test Item Value Reference Range Interpretation Comments Plt Morph (test code = See Note 1(11/21/22 Plt Morph) 6:50 AM) [place] 391173-02-21 12:50:00 Test Item Value Reference Range Interpretation Comments Segs (test code = Segs) 64.1 45.0-75.0 [place] 391173-02-21 12:50:00 Test Item Value Reference Range Interpretation Comments Lymphocytes (test code = Lymphocytes) 22.0 20.0-40.0 [place] 391173-02-21 12:50:00 Test Item Value Reference Range Interpretation Comments Monocytes (test code = Monocytes) 8.3 2.0-12.0 [place] 391173-02-21 12:50:00 Test Item Value Reference Range Interpretation Comments Eosinophils (test code = 4.7 See_Comment [A utomated message] The Eosinophils) system which ge nerated this result tra nsmitted reference range : <=4.0. The reference r christiano was not used to int erpret this result as normal/abnormal . [facility] McAllenTkrpewgPZIMDNEOKQ5411-37-78 12:50:00 Test Item Value Reference Range Interpretation Comments Basophils (test code = 0.9 See_Comment [Aut omated message] The Basophils) system which ge nerated this result tra nsmitted reference range : <=1.0. The reference r christiano was not used to int erpret this result as normal/abnormal . [facility] McAllenQnmcfpxCEKSWFGYUP2312-71-50 12:50:00 Test Item Value Reference Range Interpretation Comments Neutrophils # (test code = Neutrophils 5.6 1.5-8.1 #) [place] 391173-02-21 12:50:00 Test Item Value Reference Range Interpretation Comments Lymphocytes # (test code = Lymphocytes 1.9 1.0-5.5 #) [place] 391173-02-21 12:50:00 Test Item Value Reference Range Interpretation Comments Monocytes # (test code 0.7 See_Comment [Aut omated message] The = Monocytes #) system which generated this result tra nsmitted reference range : <=0.8. The reference r christiano was not used to int erpret this result as normal/abnormal . [facility]BzyllwxVERUXKGXUJ7503-87-45 12:50:00 Test Item Value Reference Range Interpretation Comments Eosinophils # (test code 0.4 See_Comment [A utomated message] The = Eosinophils #) system whic h generated this result tra nsmitted reference range : <=0.5. The reference r christiano was not used to int erpret this result as normal/abnormal . [facility] ParkwayFbljfydAMYSAORVSH9199-82-52 12:50:00 Test Item Value Reference Range Interpretation Comments Basophils # (test code 0.1 See_Comment [Aut omated message] The = Basophils #) system which generated this result tra nsmitted reference range : <=0.2. The reference r christiano was not used to int erpret this result as normal/abnormal . [facility] CenterSdpnhzbDHCDOSNQUL5885-36-90 12:50:00 Test Item Value Reference Range Interpretation Comments Stomatocyte (test code = Stomatocyte) slight [facility] CenterBczmcafYUSSALUDSE3608-98-87 12:50:00 Test Item Value Reference Range Interpretation Comments Ethanol Lvl (test code = Ethanol Lvl) no gt [facility] ParkwayQjhskamTUNAUHSEIG9102-62-02 12:50:00 Test Item Value Reference Range Interpretation Comments Etoh (%) (test code = Etoh (%)) no gt [facility] CenterDsgnsntDBHRYQ4183-49-00 12:25:01 Test Item Value Reference Range Interpretation [...] and resurfacing of the patella.UT SECTION: ER [place] 65356023-02-21 12:25:01 Test Item Value Reference Range Interpretation [...] [facility] Test Item Value [...] arthro[facility] and resur[facility] the patella.[facility] 12:25:01 Test Item Value [...] arthroplasty and resur[facility] of the patella.[facility] 12:25:01 Test Item Value [...] arthroplasty and resurfacing of the patella.[facility] 12:25:01 Test Item Value [...] arthroplasty and resurfacing of the patella.[facility] 12:25:01 Test Item Value [...] arthroplasty and resurfacing of the patella.[facility] 12:25:01 Test Item Value [...] arthroplasty and resurfacing of the patella.[facility] 12:25:01 Test Item Value [...] arthroplasty and resurfacing of the patella.[facility] 12:25:01 Test Item Value [...] arthroplasty and resurfacing of the patella.[facility] 12:25:01 Test Item Value [...] arthroplasty and resurfacing of the patella.[facility]LbrhjpcTENTKZ4052-58-83 11:23:44 Test Item Value Reference Range Interpretation [...] along the tentorium. No significant midline shift. [facility] CenterMjysamhJMUZUC9211-13-49 11:23:44 Test Item Value Reference Range Interpretation [...] along the tentorium. No significant midline shift. [place] 65356023-02-21 11:23:44 Test Item Value Reference Range Interpretation [...] along the tentorium. No significant midline shift. [place] 65356023-02-21 11:23:44 Test Item Value Reference Range Interpretation [...] along the tentorium. No significant midline shift. [place] 762983-02-21 11:23:44 Test Item Value Reference Range Interpretation [...] along the tentorium. No significant midline shift. [facility]HPID[facility]12[facility] 11:23:44 Test Item Value Reference Range Interpretation [...] along the tentorium. No significant midline shift. [place] 65356023-02-21 11:23:44 Test Item Value Reference Range Interpretation [...] along the tentorium. No significant midline shift. [facility] HospitalYgntxmlTDFAPV7052-45-19 11:23:44 Test Item Value Reference Range Interpretation [...] along the tentorium. No significant midline shift. [facility] HospitalDncdhfbMPQRLS6283-31-12 11:23:44 Test Item Value Reference Range Interpretation [...] along the tentorium. No significant midline shift. [facility] HospitalZcwrfwgMEVDCE8967-55-34 11:23:44 Test Item Value Reference Range Interpretation [...] along the tentorium. No significant midline shift. [facility] HospitalUutmymvWEDXMU7493-11-34 11:23:44 Test Item Value Reference Range Interpretation [...] along the tentorium. No significant midline shift. [facility]2020-12-07 10:24:00 Test Item Value Reference Range Interpretation Comments Glucose Lvl (test code = Glucose Lvl) [facility]2020-12-07 10:24:00 Test Item Value Reference Range Interpretation Comments BUN (test code = BUN) 04-21 [facility]2020-12-07 10:24:00 Test Item Value Reference Range Interpretation Comments Creatinine Lvl (test code = Creatinine 1.82 0.50-1.40 Lvl) [facility]2020-12-07 10:24:00 Test Item Value Reference Range Interpretation Comments Sodium Lvl (test code = Sodium Lvl) 139 135-145 [facility]2020-12-07 10:24:00 Test Item Value Reference Range Interpretation Comments Potassium Lvl (test code = Potassium 4.2 3.5-5.1 Lvl) [facility]2020-12-07 10:24:00 Test Item Value Reference Range Interpretation Comments Chloride Lvl (test code = Chloride Lvl) 105 95-109 [facility]2020-12-07 10:24:00 Test Item Value Reference Range Interpretation Comments CO2 (test code = CO2) 28 24-32 [facility]2020-12-07 10:24:00 Test Item Value Reference Range Interpretation Comments Calcium Lvl (test code = Calcium Lvl) 8.2 8.5-10.5 [facility]2020-12-07 10:24:00 Test Item Value Reference Range Interpretation Comments AGAP (test code = AGAP) 10.2 10.0-20.0 [facility]2020-12-07 10:24:00 Test Item Value Reference Range Interpretation Comments Glucose Lvl (test code = Glucose Lvl) 66 [facility]2020-12-07 10:24:00 Test Item Value Reference Range Interpretation Comments BUN (test code = BUN) 04-21 [facility]2020-12-07 10:24:00 Test Item Value Reference Range Interpretation Comments Creatinine Lvl (test code = Creatinine 1.82 0.50-1.40 Lvl) [facility]2020-12-07 10:24:00 Test Item Value Reference Range Interpretation Comments Sodium Lvl (test code = Sodium Lvl) 139 135-145 [place] 468410-12-07 10:24:00 Test Item Value Reference Range Interpretation Comments Potassium Lvl (test code = Potassium 4.2 3.5-5.1 Lvl) [facility]2020-12-07 10:24:00 Test Item Value Reference Range Interpretation Comments eGFR (test code = eGFR) 26 [place] 468410-12-07 10:24:00 Test Item Value Reference Range Interpretation Comments Chloride Lvl (test code = Chloride Lvl) 105 95-109 [facility]2020-12-07 10:24:00 Test Item Value Reference Range Interpretation Comments CO2 (test code = CO2) 28 24-32 [place] 468410-12-07 10:24:00 Test Item Value Reference Range Interpretation Comments Calcium Lvl (test code = Calcium Lvl) 8.2 8.5-10.5 [facility]2020-12-07 10:24:00 Test Item Value Reference Range Interpretation Comments AGAP (test code = AGAP) 10.2 10.0-20.0 [facility]2020-12-07 10:24:00 Test Item Value Reference Range Interpretation Comments eGFR (test code = eGFR) 26 [place] 391170-12-07 10:24:00 Test Item Value Reference Range Interpretation Comments Segs (test code = Segs) 70.6 45.0-75.0 [facility]wblwro[facility]AFVHXVWP9889-94-79 10:24:00 Test Item Value Reference Range Interpretation Comments Lymphocytes (test code = Lymphocytes) 13.2 20.0-40.0 [place] 391170-12-07 10:24:00 Test Item Value Reference Range Interpretation Comments Monocytes (test code = Monocytes) 10.9 2.0-12.0 [place] 391170-12-07 10:24:00 Test Item Value Reference Range Interpretation Comments Eosinophils (test code = 4.6 See_Comment [A utomated message] The Eosinophils) system which ge nerated this result tra nsmitted reference range : <=4.0. The reference r christiano was not used to int erpret this result as normal/abnormal . [facility]AllenMrnkwotKYWBNUDTHD8452-14-18 10:24:00 Test Item Value Reference Range Interpretation Comments Basophils (test code = 0.7 See_Comment [Aut omated message] The Basophils) system which ge nerated this result tra nsmitted reference range : <=1.0. The reference r christiano was not used to int erpret this result as normal/abnormal . [facility]AllenJzqzhmpMFAHYIQBAN5234-27-63 10:24:00 Test Item Value Reference Range Interpretation Comments Segs (test code = Segs) 70.6 45.0-75.0 [facility]AllenMftyrhvZOOHDTQFPE8213-28-54 10:24:00 Test Item Value Reference Range Interpretation Comments Neutrophils # (test code = Neutrophils 5.3 1.5-8.1 #) [facility]AllenYtezhypGBJQDDDEPL1156-99-91 10:24:00 Test Item Value Reference Range Interpretation Comments Lymphocytes # (test code = Lymphocytes 1.0 1.0-5.5 #) [facility]AllenPjlraymUNTGFGWWLU6742-90-49 10:24:00 Test Item Value Reference Range Interpretation Comments Monocytes # (test code 0.8 See_Comment [Aut omated message] The = Monocytes #) system which generated this result tra nsmitted reference range : <=0.8. The reference r christiano was not used to int erpret this result as normal/abnormal . [facility]AllenEbcxxpnLYKNHCOTMT3842-28-84 10:24:00 Test Item Value Reference Range Interpretation Comments Eosinophils # (test code 0.3 See_Comment [A utomated message] The = Eosinophils #) system whic h generated this result tra nsmitted reference range : <=0.5. The reference r christiano was not used to int erpret this result as normal/abnormal . [facility] McAllenOwnemxzFPBDQUPDFD2227-21-48 10:24:00 Test Item Value Reference Range Interpretation Comments Basophils # (test code 0.1 See_Comment [Aut omated message] The = Basophils #) system which generated this result tra nsmitted reference range : <=0.2. The reference r christiano was not used to int erpret this result as normal/abnormal . [facility] McAllenSjglykxNSACYWNGUY5646-55-94 10:24:00 Test Item Value Reference Range Interpretation Comments WBC (test code = WBC) 7.5 3.7-10.4 [facility]AllenAwjmhplEJOEVJBOWM3840-43-58 10:24:00 Test Item Value Reference Range Interpretation Comments RBC (test code = RBC) 3.85 4.20-5.40 [place] 391170-12-07 10:24:00 Test Item Value Reference Range Interpretation Comments Hgb (test code = Hgb) 10.6 12.0-16.0 [place] 391170-12-07 10:24:00 Test Item Value Reference Range Interpretation Comments Hct (test code = Hct) 32.1 36.0-48.0 [facility]AllenMlcequlBXIHZIHYGP0443-86-21 10:24:00 Test Item Value Reference Range Interpretation Comments MCV (test code = MCV) 83.5 80.0-98.0 [place] [address]-12-07 10:24:00 Test Item Value Reference Range Interpretation Comments Lymphocytes (test code = Lymphocytes) 13.2 20.0-40.0 [place] [address]-12-07 10:24:00 Test Item Value Reference Range Interpretation Comments MCH (test code = MCH) 27.7 pg 27.0-31.0 [facility]AllenGtsmvueBSQBJPTKGF1962-36-31 10:24:00 Test Item Value Reference Range Interpretation Comments MCHC (test code = MCHC) 33.1 32.0-36.0 [facility] McAllenLbaadefNLMKIFEJVD0524-86-03 10:24:00 Test Item Value Reference Range Interpretation Comments RDW (test code = RDW) 16.8 11.5-14.5 [facility]AllenYhmbdjuTZJSNBBYCM6893-69-99 10:24:00 Test Item Value Reference Range Interpretation Comments Platelet (test code = Platelet) 185 133-450 [facility]AllenTmbbrhcXETDFVNGZW0977-34-88 10:24:00 Test Item Value Reference Range Interpretation Comments MPV (test code = MPV) 8.4 7.4-10.4 [facility] McAllenXsnjdieIIWAIGPKKA6244-35-37 10:24:00 Test Item Value Reference Range Interpretation Comments Monocytes (test code = Monocytes) 10.9 2.0-12.0 [facility] McAllenYufqfozJOMNBORWJN4262-72-41 10:24:00 Test Item Value Reference Range Interpretation Comments Eosinophils (test code = 4.6 See_Comment [A utomated message] The Eosinophils) system which ge nerated this result tra nsmitted reference range : <=4.0. The reference r christiano was not used to int erpret this result as normal/abnormal . [facility] McAllenMmxrchrVPGGGBHVTR2174-74-27 10:24:00 Test Item Value Reference Range Interpretation Comments Basophils (test code = 0.7 See_Comment [Aut omated message] The Basophils) system which ge nerated this result tra nsmitted reference range : <=1.0. The reference r christiano was not used to int erpret this result as normal/abnormal . [facility]AllenHirqxdwWIQAMDUGZP7288-99-71 10:24:00 Test Item Value Reference Range Interpretation Comments Neutrophils # (test code = Neutrophils 5.3 1.5-8.1 #) [facility] McAllenPginbemLFJAETMJWJ3963-20-63 10:24:00 Test Item Value Reference Range Interpretation Comments Lymphocytes # (test code = Lymphocytes 1.0 1.0-5.5 #) [facility] McAllenTrndecaQTWUAMZRWO1141-51-12 10:24:00 Test Item Value Reference Range Interpretation Comments Monocytes # (test code 0.8 See_Comment [Aut omated message] The = Monocytes #) system which generated this result tra nsmitted reference range : <=0.8. The reference r christiano was not used to int erpret this result as normal/abnormal . [facility] McAllenGviyacsSUVWTAUPDP0641-50-26 10:24:00 Test Item Value Reference Range Interpretation Comments Eosinophils # (test code 0.3 See_Comment [A utomated message] The = Eosinophils #) system wh h generated this result tra nsmitted reference range : <=0.5. The reference r christiano was not used to int erpret this result as normal/abnormal . [facility] McAllenNonznjtIWKCWCPUNU7197-23-76 10:24:00 Test Item Value Reference Range Interpretation Comments Basophils # (test code 0.1 See_Comment [Aut omated message] The = Basophils #) system which generated this result tra nsmitted reference range : <=0.2. The reference r christiano was not used to int erpret this result as normal/abnormal . [facility] McAllenZjddvghYHHKYTPBXI0744-04-49 10:24:00 Test Item Value Reference Range Interpretation Comments WBC (test code = WBC) 7.5 3.7-10.4 [place] 391170-12-07 10:24:00 Test Item Value Reference Range Interpretation Comments RBC (test code = RBC) 3.85 4.20-5.40 [place] 391170-12-07 10:24:00 Test Item Value Reference Range Interpretation Comments Hgb (test code = Hgb) 10.6 12.0-16.0 [place] [address]-12-07 10:24:00 Test Item Value Reference Range Interpretation Comments Hct (test code = Hct) 32.1 36.0-48.0 [facility] McAllenLytljjaLZFARRZYST6772-20-96 10:24:00 Test Item Value Reference Range Interpretation Comments MCV (test code = MCV) 83.5 80.0-98.0 [place] 391170-12-07 10:24:00 Test Item Value Reference Range Interpretation Comments MCH (test code = MCH) 27.7 pg 27.0-31.0 [place] [address]-12-07 10:24:00 Test Item Value Reference Range Interpretation Comments MCHC (test code = MCHC) 33.1 32.0-36.0 [place] 391170-12-07 10:24:00 Test Item Value Reference Range Interpretation Comments RDW (test code = RDW) 16.8 11.5-14.5 [facility] McAllenUopqqfgDZDVVMVWTE7833-53-74 10:24:00 Test Item Value Reference Range Interpretation Comments Platelet (test code = Platelet) 185 133-450 [facility] McAllenChtltytTALUWUTTVQ5542-64-87 10:24:00 Test Item Value Reference Range Interpretation Comments MPV (test code = MPV) 8.4 7.4-10.4 [facility]2020-12-07 10:24:00 Test Item Value Reference Range Interpretation Comments Glucose Lvl (test code = Glucose Lvl) 66 70-99 [facility]2020-12-07 10:24:00 Test Item Value Reference Range Interpretation Comments BUN (test code = BUN) 19 7-22 [facility]2020-12-07 10:24:00 Test Item Value Reference Range Interpretation Comments Creatinine Lvl (test code = Creatinine 1.82 0.50-1.40 Lvl) [facility]2020-12-07 10:24:00 Test Item Value Reference Range Interpretation Comments Sodium Lvl (test code = Sodium Lvl) 139 135-145 [facility]2020-12-07 10:24:00 Test Item Value Reference Range Interpretation Comments Potassium Lvl (test code = Potassium 4.2 3.5-5.1 Lvl) [facility]2020-12-07 10:24:00 Test Item Value Reference Range Interpretation Comments Chloride Lvl (test code = Chloride Lvl) 105 95-109 [place] 468410-12-07 10:24:00 Test Item Value Reference Range Interpretation Comments CO2 (test code = CO2) 28 24-32 [place] 468410-12-07 10:24:00 Test Item Value Reference Range Interpretation Comments Calcium Lvl (test code = Calcium Lvl) 8.2 8.5-10.5 [place] 468410-12-07 10:24:00 Test Item Value Reference Range Interpretation Comments AGAP (test code = AGAP) 10.2 10.0-20.0 [place] 468410-12-07 10:24:00 Test Item Value Reference Range Interpretation Comments eGFR (test code = eGFR) 26 [facility] McAllenUzmmutrOVDUARNDKJ3705-88-79 10:24:00 Test Item Value Reference Range Interpretation Comments Segs (test code = Segs) 70.6 45.0-75.0 [place] 391170-12-07 10:24:00 Test Item Value Reference Range Interpretation Comments Lymphocytes (test code = Lymphocytes) 13.2 20.0-40.0 [place] 391170-12-07 10:24:00 Test Item Value Reference Range Interpretation Comments Monocytes (test code = Monocytes) 10.9 2.0-12.0 [place] [address]-12-07 10:24:00 Test Item Value Reference Range Interpretation Comments Eosinophils (test code = 4.6 See_Comment [A utomated message] The Eosinophils) system which ge nerated this result tra nsmitted reference range : <=4.0. The reference r christiano was not used to int erpret this result as normal/abnormal . [place] 391170-12-07 10:24:00 Test Item Value Reference Range Interpretation Comments Basophils (test code = 0.7 See_Comment [Aut omated message] The Basophils) system which ge nerated this result tra nsmitted reference range : <=1.0. The reference r christiano was not used to int erpret this result as normal/abnormal . [facility] McAllenZswdfhxRWQZTDTPQB8528-85-19 10:24:00 Test Item Value Reference Range Interpretation Comments Neutrophils # (test code = Neutrophils 5.3 1.5-8.1 #) [facility] McAllenEoxmwriIVDVYPRNCH2301-77-61 10:24:00 Test Item Value Reference Range Interpretation Comments Lymphocytes # (test code = Lymphocytes 1.0 1.0-5.5 #) [facility] McAllenSfuwpcrKMXPWXBFSV5479-11-30 10:24:00 Test Item Value Reference Range Interpretation Comments Monocytes # (test code 0.8 See_Comment [Aut omated message] The = Monocytes #) system which generated this result tra nsmitted reference range : <=0.8. The reference r christiano was not used to int erpret this result as normal/abnormal . [facility] McAllenVubairpWGEISFMROC2771-74-68 10:24:00 Test Item Value Reference Range Interpretation Comments Eosinophils # (test code 0.3 See_Comment [A utomated message] The = Eosinophils #) system whic h generated this result tra nsmitted reference range : <=0.5. The reference r christiano was not used to int erpret this result as normal/abnormal . [facility] McAllenFowbjvjVNKSTKWQGT7108-85-87 10:24:00 Test Item Value Reference Range Interpretation Comments Basophils # (test code 0.1 See_Comment [Aut omated message] The = Basophils #) system which generated this result tra nsmitted reference range : <=0.2. The reference r christiano was not used to int erpret this result as normal/abnormal . [facility] McAllenFcabbkoEFXBNIQKBL7438-58-68 10:24:00 Test Item Value Reference Range Interpretation Comments WBC (test code = WBC) 7.5 3.7-10.4 [facility]AllenCfrjjbmVMMYJVJIIV9601-30-88 10:24:00 Test Item Value Reference Range Interpretation Comments RBC (test code = RBC) 3.85 4.20-5.40 [place] 391170-12-07 10:24:00 Test Item Value Reference Range Interpretation Comments Hgb (test code = Hgb) 10.6 12.0-16.0 [facility] McAllenYhrinuzSDIERWFFLL1308-95-31 10:24:00 Test Item Value Reference Range Interpretation Comments Hct (test code = Hct) 32.1 36.0-48.0 [place] 391170-12-07 10:24:00 Test Item Value Reference Range Interpretation Comments MCV (test code = MCV) 83.5 80.0-98.0 [place] 391170-12-07 10:24:00 Test Item Value Reference Range Interpretation Comments MCH (test code = MCH) 27.7 pg 27.0-31.0 [place] [address]-12-07 10:24:00 Test Item Value Reference Range Interpretation Comments MCHC (test code = MCHC) 33.1 32.0-36.0 [place] 391170-12-07 10:24:00 Test Item Value Reference Range Interpretation Comments RDW (test code = RDW) 16.8 11.5-14.5 [place] 391170-12-07 10:24:00 Test Item Value Reference Range Interpretation Comments Platelet (test code = Platelet) 185 133-450 [facility] McAllenIygboscCMGVHSGAOD9969-40-93 10:24:00 Test Item Value Reference Range Interpretation Comments MPV (test code = MPV) 8.4 7.4-10.4 [facility]2020-12-07 10:24:00 Test Item Value Reference Range Interpretation Comments Glucose Lvl (test code = Glucose Lvl) 66 70-99 [facility]2020-12-07 10:24:00 Test Item Value Reference Range Interpretation Comments BUN (test code = BUN) 19 7-22 [facility]2020-12-07 10:24:00 Test Item Value Reference Range Interpretation Comments Creatinine Lvl (test code = Creatinine 1.82 0.50-1.40 Lvl) [facility]2020-12-07 10:24:00 Test Item Value Reference Range Interpretation Comments Sodium Lvl (test code = Sodium Lvl) 139 135-145 [facility]2020-12-07 10:24:00 Test Item Value Reference Range Interpretation Comments Potassium Lvl (test code = Potassium 4.2 3.5-5.1 Lvl) [facility]2020-12-07 10:24:00 Test Item Value Reference Range Interpretation Comments Chloride Lvl (test code = Chloride Lvl) 105 95-109 [place] 468410-12-07 10:24:00 Test Item Value Reference Range Interpretation Comments CO2 (test code = CO2) 28 24-32 [place] 468410-12-07 10:24:00 Test Item Value Reference Range Interpretation Comments Calcium Lvl (test code = Calcium Lvl) 8.2 8.5-10.5 [place] 468410-12-07 10:24:00 Test Item Value Reference Range Interpretation Comments AGAP (test code = AGAP) 10.2 10.0-20.0 [place] [address]-12-07 10:24:00 Test Item Value Reference Range Interpretation Comments eGFR (test code = eGFR) 26 [place] 391170-12-07 10:24:00 Test Item Value Reference Range Interpretation Comments Segs (test code = Segs) 70.6 45.0-75.0 [place] [address]-12-07 10:24:00 Test Item Value Reference Range Interpretation Comments Lymphocytes (test code = Lymphocytes) 13.2 20.0-40.0 [place] 391170-12-07 10:24:00 Test Item Value Reference Range Interpretation Comments Monocytes (test code = Monocytes) 10.9 2.0-12.0 [place] 391170-12-07 10:24:00 Test Item Value Reference Range Interpretation Comments Eosinophils (test code = 4.6 See_Comment [A utomated message] The Eosinophils) system which ge nerated this result tra nsmitted reference range : <=4.0. The reference r christiano was not used to int erpret this result as normal/abnormal . [place] 391170-12-07 10:24:00 Test Item Value Reference Range Interpretation Comments Basophils (test code = 0.7 See_Comment [Aut omated message] The Basophils) system which ge nerated this result tra nsmitted reference range : <=1.0. The reference r christiano was not used to int erpret this result as normal/abnormal . [place] 391170-12-07 10:24:00 Test Item Value Reference Range Interpretation Comments Neutrophils # (test code = Neutrophils 5.3 1.5-8.1 #) [place] 391170-12-07 10:24:00 Test Item Value Reference Range Interpretation Comments Lymphocytes # (test code = Lymphocytes 1.0 1.0-5.5 #) [facility]AllenHkqzzokIXBTPPVKFY4716-33-51 10:24:00 Test Item Value Reference Range Interpretation Comments Monocytes # (test code 0.8 See_Comment [Aut omated message] The = Monocytes #) system which generated this result tra nsmitted reference range : <=0.8. The reference r christiano was not used to int erpret this result as normal/abnormal . [facility] McAllenLsjaztcPGEVEHOACX3654-63-08 10:24:00 Test Item Value Reference Range Interpretation Comments Eosinophils # (test code 0.3 See_Comment [A utomated message] The = Eosinophils #) system whic h generated this result tra nsmitted reference range : <=0.5. The reference r christiano was not used to int erpret this result as normal/abnormal . [facility] McAllenLkytokoWYWZJCTBSQ7519-12-68 10:24:00 Test Item Value Reference Range Interpretation Comments Basophils # (test code 0.1 See_Comment [Aut omated message] The = Basophils #) system which generated this result tra nsmitted reference range : <=0.2. The reference r christiano was not used to int erpret this result as normal/abnormal . [facility]AllenHtpvfbyYWCIHFTJQD6671-43-54 10:24:00 Test Item Value Reference Range Interpretation Comments WBC (test code = WBC) 7.5 3.7-10.4 [place] 391170-12-07 10:24:00 Test Item Value Reference Range Interpretation Comments RBC (test code = RBC) 3.85 4.20-5.40 [place] 391170-12-07 10:24:00 Test Item Value Reference Range Interpretation Comments Hgb (test code = Hgb) 10.6 12.0-16.0 [place] 391170-12-07 10:24:00 Test Item Value Reference Range Interpretation Comments Hct (test code = Hct) 32.1 36.0-48.0 [facility]AllenHiwuuixGIGUAIYVIZ4441-36-75 10:24:00 Test Item Value Reference Range Interpretation Comments MCV (test code = MCV) 83.5 80.0-98.0 [place] 391170-12-07 10:24:00 Test Item Value Reference Range Interpretation Comments MCH (test code = MCH) 27.7 pg 27.0-31.0 [facility]AllenMzgidgmMNWUPUNORD1564-80-73 10:24:00 Test Item Value Reference Range Interpretation Comments MCHC (test code = MCHC) 33.1 32.0-36.0 [facility]AllenMzdublvGZDZKUSZWS7369-53-96 10:24:00 Test Item Value Reference Range Interpretation Comments RDW (test code = RDW) 16.8 11.5-14.5 [place] 391170-12-07 10:24:00 Test Item Value Reference Range Interpretation Comments Platelet (test code = Platelet) 185 133-450 [facility]AllenSpfuxxpEDWGXOOPOX1844-08-58 10:24:00 Test Item Value Reference Range Interpretation Comments MPV (test code = MPV) 8.4 7.4-10.4 [facility]2020-12-07 10:24:00 Test Item Value Reference Range Interpretation Comments Glucose Lvl (test code = Glucose Lvl) 66 70-99 [facility]2020-12-07 10:24:00 Test Item Value Reference Range Interpretation Comments BUN (test code = BUN) 19 -22 [facility]2020-12-07 10:24:00 Test Item Value Reference Range Interpretation Comments Creatinine Lvl (test code = Creatinine 1.82 0.50-1.40 Lvl) [facility]2020-12-07 10:24:00 Test Item Value Reference Range Interpretation Comments Sodium Lvl (test code = Sodium Lvl) 139 135-145 [facility]2020-12-07 10:24:00 Test Item Value Reference Range Interpretation Comments Potassium Lvl (test code = Potassium 4.2 3.5-5.1 Lvl) [facility]2020-12-07 10:24:00 Test Item Value Reference Range Interpretation Comments Chloride Lvl (test code = Chloride Lvl) 105 95-109 [facility]2020-12-07 10:24:00 Test Item Value Reference Range Interpretation Comments CO2 (test code = CO2) 28 -32 [place] 468410-12-07 10:24:00 Test Item Value Reference Range Interpretation Comments Calcium Lvl (test code = Calcium Lvl) 8.2 8.5-10.5 [place] 468410-12-07 10:24:00 Test Item Value Reference Range Interpretation Comments AGAP (test code = AGAP) 10.2 10.0-20.0 [facility]2020-12-07 10:24:00 Test Item Value Reference Range Interpretation Comments eGFR (test code = eGFR) 26 [facility] McAllenWutwhgpSMCFHCVLEU6107-08-72 10:24:00 Test Item Value Reference Range Interpretation Comments Segs (test code = Segs) 70.6 45.0-75.0 [facility] McAllenOjzjsbtAHHQUFMHAI6780-70-36 10:24:00 Test Item Value Reference Range Interpretation Comments Lymphocytes (test code = Lymphocytes) 13.2 20.0-40.0 [facility] McAllenKxseajbHWWSAMFRHE7031-80-11 10:24:00 Test Item Value Reference Range Interpretation Comments Monocytes (test code = Monocytes) 10.9 2.0-12.0 [facility] McAllenBbwfhieVNEDJXCVJB7106-98-89 10:24:00 Test Item Value Reference Range Interpretation Comments Eosinophils (test code = 4.6 See_Comment [A utomated message] The Eosinophils) system which ge nerated this result tra nsmitted reference range : <=4.0. The reference r christiano was not used to int erpret this result as normal/abnormal . [facility] McAllenLobqqwxGHPYHMHOUL1600-38-49 10:24:00 Test Item Value Reference Range Interpretation Comments Basophils (test code = 0.7 See_Comment [Aut omated message] The Basophils) system which ge nerated this result tra nsmitted reference range : <=1.0. The reference r christiano was not used to int erpret this result as normal/abnormal . [facility] McAllenYjociodITAIEVBEPV1071-34-35 10:24:00 Test Item Value Reference Range Interpretation Comments Neutrophils # (test code = Neutrophils 5.3 1.5-8.1 #) [facility] McAllenDkcqbeiAZVDUEZEEG1899-64-23 10:24:00 Test Item Value Reference Range Interpretation Comments Lymphocytes # (test code = Lymphocytes 1.0 1.0-5.5 #) [place] 391170-12-07 10:24:00 Test Item Value Reference Range Interpretation Comments Monocytes # (test code 0.8 See_Comment [Aut omated message] The = Monocytes #) system which generated this result tra nsmitted reference range : <=0.8. The reference r christiano was not used to int erpret this result as normal/abnormal . [facility] McAllenMjsmhhmTYHETPJWLV2226-97-57 10:24:00 Test Item Value Reference Range Interpretation Comments Eosinophils # (test code 0.3 See_Comment [A utomated message] The = Eosinophils #) system whic h generated this result tra nsmitted reference range : <=0.5. The reference r christiano was not used to int erpret this result as normal/abnormal . [facility] McAllenLyncklgFEDNEIWEVP8788-28-40 10:24:00 Test Item Value Reference Range Interpretation Comments Basophils # (test code 0.1 See_Comment [Aut omated message] The = Basophils #) system which generated this result tra nsmitted reference range : <=0.2. The reference r christiano was not used to int erpret this result as normal/abnormal . [facility]AllenLdllqwpSTVGRDYUYM9981-91-04 10:24:00 Test Item Value Reference Range Interpretation Comments WBC (test code = WBC) 7.5 3.7-10.4 [facility]AllenUuowplaSRNKSOKKJE0207-54-24 10:24:00 Test Item Value Reference Range Interpretation Comments RBC (test code = RBC) 3.85 4.20-5.40 [facility]AllenXrpuzdsLTKJVMGSAD6793-95-76 10:24:00 Test Item Value Reference Range Interpretation Comments Hgb (test code = Hgb) 10.6 12.0-16.0 [facility]AllenNrboslvOVTUWVZZHY6018-90-68 10:24:00 Test Item Value Reference Range Interpretation Comments Hct (test code = Hct) 32.1 36.0-48.0 [facility]AllenUfjuxfzJDMOHNVZWG5214-02-83 10:24:00 Test Item Value Reference Range Interpretation Comments MCV (test code = MCV) 83.5 80.0-98.0 [facility] McAllenLlrbnvfISINXTPJMK3668-86-97 10:24:00 Test Item Value Reference Range Interpretation Comments MCH (test code = MCH) 27.7 pg 27.0-31.0 [facility] McAllenLofkxbbYEJAAIFDBR3254-99-61 10:24:00 Test Item Value Reference Range Interpretation Comments MCHC (test code = MCHC) 33.1 32.0-36.0 [facility] McAllenRrylmiuJGVQIDIVOH9875-23-87 10:24:00 Test Item Value Reference Range Interpretation Comments RDW (test code = RDW) 16.8 11.5-14.5 [place] 391170-12-07 10:24:00 Test Item Value Reference Range Interpretation Comments Platelet (test code = Platelet) 185 133-450 [facility] McAllenGenidjiNZQGZODGUI2898-56-25 10:24:00 Test Item Value Reference Range Interpretation Comments MPV (test code = MPV) 8.4 7.4-10.4 [facility]2020-12-07 10:24:00 Test Item Value Reference Range Interpretation Comments Glucose Lvl (test code = Glucose Lvl) 66 70-99 [facility]2020-12-07 10:24:00 Test Item Value Reference Range Interpretation Comments BUN (test code = BUN) 19 7-22 [place] 468410-12-07 10:24:00 Test Item Value Reference Range Interpretation Comments Creatinine Lvl (test code = Creatinine 1.82 0.50-1.40 Lvl) [facility]2020-12-07 10:24:00 Test Item Value Reference Range Interpretation Comments Sodium Lvl (test code = Sodium Lvl) 139 135-145 [facility]2020-12-07 10:24:00 Test Item Value Reference Range Interpretation Comments Potassium Lvl (test code = Potassium 4.2 3.5-5.1 Lvl) [facility]2020-12-07 10:24:00 Test Item Value Reference Range Interpretation Comments Chloride Lvl (test code = Chloride Lvl) 105 95-109 [place] 468410-12-07 10:24:00 Test Item Value Reference Range Interpretation Comments CO2 (test code = CO2) 28 24-32 [facility]2020-12-07 10:24:00 Test Item Value Reference Range Interpretation Comments Calcium Lvl (test code = Calcium Lvl) 8.2 8.5-10.5 [facility]2020-12-07 10:24:00 Test Item Value Reference Range Interpretation Comments AGAP (test code = AGAP) 10.2 10.0-20.0 [facility]2020-12-07 10:24:00 Test Item Value Reference Range Interpretation Comments eGFR (test code = eGFR) 26 [facility]AllenBqxxbobYHQZLMEBEQ6362-46-46 10:24:00 Test Item Value Reference Range Interpretation Comments Segs (test code = Segs) 70.6 45.0-75.0 [place] 391170-12-07 10:24:00 Test Item Value Reference Range Interpretation Comments Lymphocytes (test code = Lymphocytes) 13.2 20.0-40.0 [facility] McAllenBbpdtunXQOUEDYENQ1574-15-66 10:24:00 Test Item Value Reference Range Interpretation Comments Monocytes (test code = Monocytes) 10.9 2.0-12.0 [place] 391170-12-07 10:24:00 Test Item Value Reference Range Interpretation Comments Eosinophils (test code = 4.6 See_Comment [A utomated message] The Eosinophils) system which ge nerated this result tra nsmitted reference range : <=4.0. The reference r christiano was not used to int erpret this result as normal/abnormal . [facility] McAllenVjohwmzGRMHRYKPAL4813-88-90 10:24:00 Test Item Value Reference Range Interpretation Comments Basophils (test code = 0.7 See_Comment [Aut omated message] The Basophils) system which ge nerated this result tra nsmitted reference range : <=1.0. The reference r christiano was not used to int erpret this result as normal/abnormal . [facility]AllenFouobvlWDNEHWVSPL9403-17-41 10:24:00 Test Item Value Reference Range Interpretation Comments Neutrophils # (test code = Neutrophils 5.3 1.5-8.1 #) [facility]AllenXzukticDTDCWXXDYV4508-08-12 10:24:00 Test Item Value Reference Range Interpretation Comments Lymphocytes # (test code = Lymphocytes 1.0 1.0-5.5 #) [facility] McAllenAdkcrarCEPGVHOMUW7248-44-93 10:24:00 Test Item Value Reference Range Interpretation Comments Monocytes # (test code 0.8 See_Comment [Aut omated message] The = Monocytes #) system which generated this result tra nsmitted reference range : <=0.8. The reference r christiano was not used to int erpret this result as normal/abnormal . [facility] McAllenXhatrjlNKUHJTEZZI3297-80-44 10:24:00 Test Item Value Reference Range Interpretation Comments Eosinophils # (test code 0.3 See_Comment [A utomated message] The = Eosinophils #) system whic h generated this result tra nsmitted reference range : <=0.5. The reference r christiano was not used to int erpret this result as normal/abnormal . [place] [address]-12-07 10:24:00 Test Item Value Reference Range Interpretation Comments Basophils # (test code 0.1 See_Comment [Aut omated message] The = Basophils #) system which generated this result tra nsmitted reference range : <=0.2. The reference r christiano was not used to int erpret this result as normal/abnormal . [facility] McAllenQzrnofbZWTICNMXSU0506-55-86 10:24:00 Test Item Value Reference Range Interpretation Comments WBC (test code = WBC) 7.5 3.7-10.4 [facility] McAllenZpxdvczGGKDWEBWFY1397-91-08 10:24:00 Test Item Value Reference Range Interpretation Comments RBC (test code = RBC) 3.85 4.20-5.40 [facility] McAllenFebomxuFICPIUACGI6740-18-09 10:24:00 Test Item Value Reference Range Interpretation Comments Hgb (test code = Hgb) 10.6 12.0-16.0 [facility] McAllenVqvqgjkDGFCLYPMUX3276-36-97 10:24:00 Test Item Value Reference Range Interpretation Comments Hct (test code = Hct) 32.1 36.0-48.0 [facility] McAllenEkynahwPFNHSICTCF7350-56-34 10:24:00 Test Item Value Reference Range Interpretation Comments MCV (test code = MCV) 83.5 80.0-98.0 [facility]jkbfBUIGLHFMJK0832-96-[facility] 10:24:00 Test Item Value Reference Range Interpretation Comments MCH (test code = MCH) 27.7 pg 27.0-31.0 [facility] McAllenJiwwlvlWHOERZCXAI4623-09-40 10:24:00 Test Item Value Reference Range Interpretation Comments MCHC (test code = MCHC) 33.1 32.0-36.0 [facility] McAllenOmzufoeAQUXWEANCU9421-43-82 10:24:00 Test Item Value Reference Range Interpretation Comments RDW (test code = RDW) 16.8 11.5-14.5 [facility] McAllenJphjluzOFSNZOEIHA6344-71-25 10:24:00 Test Item Value Reference Range Interpretation Comments Platelet (test code = Platelet) 185 133-450 [facility] McAllenPaqkhyxPSXOJXOBDT4472-99-48 10:24:00 Test Item Value Reference Range Interpretation Comments MPV (test code = MPV) 8.4 7.4-10.4 [facility]2020-12-07 10:24:00 Test Item Value Reference Range Interpretation Comments Glucose Lvl (test code = Glucose Lvl) 66 70-99 [facility]2020-12-07 10:24:00 Test Item Value Reference Range Interpretation Comments BUN (test code = BUN) 19 7-22 [facility]2020-12-07 10:24:00 Test Item Value Reference Range Interpretation Comments Creatinine Lvl (test code = Creatinine 1.82 0.50-1.40 Lvl) [facility]2020-12-07 10:24:00 Test Item Value Reference Range Interpretation Comments Sodium Lvl (test code = Sodium Lvl) 139 135-145 [facility]2020-12-07 10:24:00 Test Item Value Reference Range Interpretation Comments Potassium Lvl (test code = Potassium 4.2 3.5-5.1 Lvl) [facility]2020-12-07 10:24:00 Test Item Value Reference Range Interpretation Comments Chloride Lvl (test code = Chloride Lvl) 105 95-109 [facility]2020-12-07 10:24:00 Test Item Value Reference Range Interpretation Comments CO2 (test code = CO2) 28 24-32 [place] 468410-12-07 10:24:00 Test Item Value Reference Range Interpretation Comments Calcium Lvl (test code = Calcium Lvl) 8.2 8.5-10.5 [facility]2020-12-07 10:24:00 Test Item Value Reference Range Interpretation Comments AGAP (test code = AGAP) 10.2 10.0-20.0 [facility]2020-12-07 10:24:00 Test Item Value Reference Range Interpretation Comments eGFR (test code = eGFR) 26 [facility] McAllenBsgxikwTYODVLBBBB4916-70-33 10:24:00 Test Item Value Reference Range Interpretation Comments Segs (test code = Segs) 70.6 45.0-75.0 [place] 391170-12-07 10:24:00 Test Item Value Reference Range Interpretation Comments Lymphocytes (test code = Lymphocytes) 13.2 20.0-40.0 [place] 391170-12-07 10:24:00 Test Item Value Reference Range Interpretation Comments Monocytes (test code = Monocytes) 10.9 2.0-12.0 [place] 391170-12-07 10:24:00 Test Item Value Reference Range Interpretation Comments Eosinophils (test code = 4.6 See_Comment [A utomated message] The Eosinophils) system which ge nerated this result tra nsmitted reference range : <=4.0. The reference r christiano was not used to int erpret this result as normal/abnormal . [facility] McAllenHfebsotOAOFSBKWWS9698-83-73 10:24:00 Test Item Value Reference Range Interpretation Comments Basophils (test code = 0.7 See_Comment [Aut omated message] The Basophils) system which ge nerated this result tra nsmitted reference range : <=1.0. The reference r christiano was not used to int erpret this result as normal/abnormal . [facility] McAllenYdduiqsOBPWVZGUOV5892-87-55 10:24:00 Test Item Value Reference Range Interpretation Comments Neutrophils # (test code = Neutrophils 5.3 1.5-8.1 #) [facility] McAllenThfkmriUIOFEEGMLE6690-91-98 10:24:00 Test Item Value Reference Range Interpretation Comments Lymphocytes # (test code = Lymphocytes 1.0 1.0-5.5 #) [facility] McAllenMliiszsPDAEQUMMXE0016-25-38 10:24:00 Test Item Value Reference Range Interpretation Comments Monocytes # (test code 0.8 See_Comment [Aut omated message] The = Monocytes #) system which generated this result tra nsmitted reference range : <=0.8. The reference r christiano was not used to int erpret this result as normal/abnormal . [facility] McAllenCrmefxkIVNJJKMIXV5569-06-31 10:24:00 Test Item Value Reference Range Interpretation Comments Eosinophils # (test code 0.3 See_Comment [A utomated message] The = Eosinophils #) system whic h generated this result tra nsmitted reference range : <=0.5. The reference r christiano was not used to int erpret this result as normal/abnormal . [facility] McAllenJmmqobtKGNTYJCBBA1837-06-10 10:24:00 Test Item Value Reference Range Interpretation Comments Basophils # (test code 0.1 See_Comment [Aut omated message] The = Basophils #) system which generated this result tra nsmitted reference range : <=0.2. The reference r christiano was not used to int erpret this result as normal/abnormal . [facility] McAllenDxvdyppKNLSNSXRGI8699-90-75 10:24:00 Test Item Value Reference Range Interpretation Comments WBC (test code = WBC) 7.5 3.7-10.4 [place] 391170-12-07 10:24:00 Test Item Value Reference Range Interpretation Comments RBC (test code = RBC) 3.85 4.20-5.40 [place] 391170-12-07 10:24:00 Test Item Value Reference Range Interpretation Comments Hgb (test code = Hgb) 10.6 12.0-16.0 [place] [address]-12-07 10:24:00 Test Item Value Reference Range Interpretation Comments Hct (test code = Hct) 32.1 36.0-48.0 [place] 391170-12-07 10:24:00 Test Item Value Reference Range Interpretation Comments MCV (test code = MCV) 83.5 80.0-98.0 [place] [address]-12-07 10:24:00 Test Item Value Reference Range Interpretation Comments MCH (test code = MCH) 27.7 pg 27.0-31.0 [place] 391170-12-07 10:24:00 Test Item Value Reference Range Interpretation Comments MCHC (test code = MCHC) 33.1 32.0-36.0 [place] 391170-12-07 10:24:00 Test Item Value Reference Range Interpretation Comments RDW (test code = RDW) 16.8 11.5-14.5 [place] 391170-12-07 10:24:00 Test Item Value Reference Range Interpretation Comments Platelet (test code = Platelet) 185 133-450 [facility]2020-12-07 10:24:00 Test Item Value Reference Range Interpretation Comments Glucose Lvl (test code = Glucose Lvl) 66 70-99 [facility]2020-12-07 10:24:00 Test Item Value Reference Range Interpretation Comments BUN (test code = BUN) 19 7-22 [facility]2020-12-07 10:24:00 Test Item Value Reference Range Interpretation Comments Creatinine Lvl (test code = Creatinine 1.82 0.50-1.40 Lvl) [facility]2020-12-07 10:24:00 Test Item Value Reference Range Interpretation Comments Sodium Lvl (test code = Sodium Lvl) 139 135-145 [place] 468410-12-07 10:24:00 Test Item Value Reference Range Interpretation Comments Potassium Lvl (test code = Potassium 4.2 3.5-5.1 Lvl) [place] 468410-12-07 10:24:00 Test Item Value Reference Range Interpretation Comments Chloride Lvl (test code = Chloride Lvl) 105 95-109 [place] 391170-12-07 10:24:00 Test Item Value Reference Range Interpretation Comments MPV (test code = MPV) 8.4 7.4-10.4 [place] [address]-12-07 10:24:00 Test Item Value Reference Range Interpretation Comments CO2 (test code = CO2) 28 24-32 [place] 468410-12-07 10:24:00 Test Item Value Reference Range Interpretation Comments Calcium Lvl (test code = Calcium Lvl) 8.2 8.5-10.5 [place] 468410-12-07 10:24:00 Test Item Value Reference Range Interpretation Comments AGAP (test code = AGAP) 10.2 10.0-20.0 [place] 468410-12-07 10:24:00 Test Item Value Reference Range Interpretation Comments eGFR (test code = eGFR) 26 [place] 391170-12-07 10:24:00 Test Item Value Reference Range Interpretation Comments Segs (test code = Segs) 70.6 45.0-75.0 [place] [address]-12-07 10:24:00 Test Item Value Reference Range Interpretation Comments Lymphocytes (test code = Lymphocytes) 13.2 20.0-40.0 [place] 391170-12-07 10:24:00 Test Item Value Reference Range Interpretation Comments Monocytes (test code = Monocytes) 10.9 2.0-12.0 [place] [address]-12-07 10:24:00 Test Item Value Reference Range Interpretation Comments Eosinophils (test code = 4.6 See_Comment [A utomated message] The Eosinophils) system which ge nerated this result tra nsmitted reference range : <=4.0. The reference r christiano was not used to int erpret this result as normal/abnormal . [place] 391170-12-07 10:24:00 Test Item Value Reference Range Interpretation Comments Basophils (test code = 0.7 See_Comment [Aut omated message] The Basophils) system which ge nerated this result tra nsmitted reference range : <=1.0. The reference r christiano was not used to int erpret this result as normal/abnormal . [facility]AllenGudmyovBGKCZITTJP7197-07-31 10:24:00 Test Item Value Reference Range Interpretation Comments Neutrophils # (test code = Neutrophils 5.3 1.5-8.1 #) [facility]AllenCwmgzyxYTIVPFDFHO5710-15-68 10:24:00 Test Item Value Reference Range Interpretation Comments Lymphocytes # (test code = Lymphocytes 1.0 1.0-5.5 #) [facility] McAllenSmmldkgSBIVQHEDLQ0551-19-13 10:24:00 Test Item Value Reference Range Interpretation Comments Monocytes # (test code 0.8 See_Comment [Aut omated message] The = Monocytes #) system which generated this result tra nsmitted reference range : <=0.8. The reference r christiano was not used to int erpret this result as normal/abnormal . [facility] McAllenNsgmuvtXDLNGFNURW2031-84-58 10:24:00 Test Item Value Reference Range Interpretation Comments Eosinophils # (test code 0.3 See_Comment [A utomated message] The = Eosinophils #) system whic h generated this result tra nsmitted reference range : <=0.5. The reference r christiano was not used to int erpret this result as normal/abnormal . [facility] McAllenNsmsokaBPHRBLNCIU3898-03-70 10:24:00 Test Item Value Reference Range Interpretation Comments Basophils # (test code 0.1 See_Comment [Aut omated message] The = Basophils #) system which generated this result tra nsmitted reference range : <=0.2. The reference r christiano was not used to int erpret this result as normal/abnormal . [facility] McAllenAsbzrcmWXMBOCRFJG6373-95-61 10:24:00 Test Item Value Reference Range Interpretation Comments WBC (test code = WBC) 7.5 3.7-10.4 [facility] McAllenPfadldmZWWYEFOYNA4613-68-75 10:24:00 Test Item Value Reference Range Interpretation Comments RBC (test code = RBC) 3.85 4.20-5.40 [place] 391170-12-07 10:24:00 Test Item Value Reference Range Interpretation Comments Hgb (test code = Hgb) 10.6 12.0-16.0 [place] 391170-12-07 10:24:00 Test Item Value Reference Range Interpretation Comments Hct (test code = Hct) 32.1 36.0-48.0 [place] 391170-12-07 10:24:00 Test Item Value Reference Range Interpretation Comments MCV (test code = MCV) 83.5 80.0-98.0 [place] [address]-12-07 10:24:00 Test Item Value Reference Range Interpretation Comments MCH (test code = MCH) 27.7 pg 27.0-31.0 [place] [address]-12-07 10:24:00 Test Item Value Reference Range Interpretation Comments MCHC (test code = MCHC) 33.1 32.0-36.0 [place] 391170-12-07 10:24:00 Test Item Value Reference Range Interpretation Comments RDW (test code = RDW) 16.8 11.5-14.5 [place] [address]-12-07 10:24:00 Test Item Value Reference Range Interpretation Comments Platelet (test code = Platelet) 185 133-450 [facility] McAllenRzadwpvPGFPRUWHAV8584-24-13 10:24:00 Test Item Value Reference Range Interpretation Comments MPV (test code = MPV) 8.4 7.4-10.4 [facility]2020-12-07 10:24:00 Test Item Value Reference Range Interpretation Comments Glucose Lvl (test code = Glucose Lvl) 66 70-99 [facility]2020-12-07 10:24:00 Test Item Value Reference Range Interpretation Comments BUN (test code = BUN) 19 7-22 [facility]2020-12-07 10:24:00 Test Item Value Reference Range Interpretation Comments Creatinine Lvl (test code = Creatinine 1.82 0.50-1.40 Lvl) [facility]2020-12-07 10:24:00 Test Item Value Reference Range Interpretation Comments Sodium Lvl (test code = Sodium Lvl) 139 135-145 [facility]2020-12-07 10:24:00 Test Item Value Reference Range Interpretation Comments Potassium Lvl (test code = Potassium 4.2 3.5-5.1 Lvl) [facility]2020-12-07 10:24:00 Test Item Value Reference Range Interpretation Comments Chloride Lvl (test code = Chloride Lvl) 105 95-109 [facility]2020-12-07 10:24:00 Test Item Value Reference Range Interpretation Comments CO2 (test code = CO2) 28 24-32 [place] 468410-12-07 10:24:00 Test Item Value Reference Range Interpretation Comments Calcium Lvl (test code = Calcium Lvl) 8.2 8.5-10.5 [place] 468410-12-07 10:24:00 Test Item Value Reference Range Interpretation Comments AGAP (test code = AGAP) 10.2 10.0-20.0 [place] 468410-12-07 10:24:00 Test Item Value Reference Range Interpretation Comments eGFR (test code = eGFR) 26 [facility]AllenFowpvnzCWNNEHJUBM5804-60-11 10:24:00 Test Item Value Reference Range Interpretation Comments Segs (test code = Segs) 70.6 45.0-75.0 [place] 391170-12-07 10:24:00 Test Item Value Reference Range Interpretation Comments Lymphocytes (test code = Lymphocytes) 13.2 20.0-40.0 [place] 391170-12-07 10:24:00 Test Item Value Reference Range Interpretation Comments Monocytes (test code = Monocytes) 10.9 2.0-12.0 [place] 391170-12-07 10:24:00 Test Item Value Reference Range Interpretation Comments Eosinophils (test code = 4.6 See_Comment [A utomated message] The Eosinophils) system which ge nerated this result tra nsmitted reference range : <=4.0. The reference r christiano was not used to int erpret this result as normal/abnormal . [facility] McAllenLjhcxtlYLODSLEGFI2556-27-42 10:24:00 Test Item Value Reference Range Interpretation Comments Basophils (test code = 0.7 See_Comment [Aut omated message] The Basophils) system which ge nerated this result tra nsmitted reference range : <=1.0. The reference r christiano was not used to int erpret this result as normal/abnormal . [place] 391170-12-07 10:24:00 Test Item Value Reference Range Interpretation Comments Neutrophils # (test code = Neutrophils 5.3 1.5-8.1 #) [facility] McAllenKyrmqhsSLEBNHJPTR5804-76-43 10:24:00 Test Item Value Reference Range Interpretation Comments Lymphocytes # (test code = Lymphocytes 1.0 1.0-5.5 #) [facility] McAllenCiaqnmwNPKKRKCMPJ6591-20-45 10:24:00 Test Item Value Reference Range Interpretation Comments Monocytes # (test code 0.8 See_Comment [Aut omated message] The = Monocytes #) system which generated this result tra nsmitted reference range : <=0.8. The reference r christiano was not used to int erpret this result as normal/abnormal . [facility] McAllenZnzjaqyOKQLFOXWWN7396-83-99 10:24:00 Test Item Value Reference Range Interpretation Comments Eosinophils # (test code 0.3 See_Comment [A utomated message] The = Eosinophils #) system whic h generated this result tra nsmitted reference range : <=0.5. The reference r christiano was not used to int erpret this result as normal/abnormal . [facility] McAllenGosnybkOJWGUCYIKA1962-26-56 10:24:00 Test Item Value Reference Range Interpretation Comments Basophils # (test code 0.1 See_Comment [Aut omated message] The = Basophils #) system which generated this result tra nsmitted reference range : <=0.2. The reference r christiano was not used to int erpret this result as normal/abnormal . [facility] McAllenHfzddkeGNNXIHXYDZ1677-91-72 10:24:00 Test Item Value Reference Range Interpretation Comments WBC (test code = WBC) 7.5 3.7-10.4 [facility] McAllenMikvuafSCKLYSNVPC1332-76-68 10:24:00 Test Item Value Reference Range Interpretation Comments RBC (test code = RBC) 3.85 4.20-5.40 [place] 391170-12-07 10:24:00 Test Item Value Reference Range Interpretation Comments Hgb (test code = Hgb) 10.6 12.0-16.0 [place] 391170-12-07 10:24:00 Test Item Value Reference Range Interpretation Comments Hct (test code = Hct) 32.1 36.0-48.0 [place] 391170-12-07 10:24:00 Test Item Value Reference Range Interpretation Comments MCV (test code = MCV) 83.5 80.0-98.0 [place] 391170-12-07 10:24:00 Test Item Value Reference Range Interpretation Comments MCH (test code = MCH) 27.7 pg 27.0-31.0 [facility]AllenCjlaplgMQSXHBVDUU2456-44-90 10:24:00 Test Item Value Reference Range Interpretation Comments MCHC (test code = MCHC) 33.1 32.0-36.0 [facility] McAllenXachcbwHPIUZAPEYC9436-28-17 10:24:00 Test Item Value Reference Range Interpretation Comments RDW (test code = RDW) 16.8 11.5-14.5 [facility] McAllenYjrjwerTVQMMDXSIL3299-34-80 10:24:00 Test Item Value Reference Range Interpretation Comments Platelet (test code = Platelet) 185 133-450 [facility] McAllenHndsylmOAYWCMGVGN2235-13-74 10:24:00 Test Item Value Reference Range Interpretation Comments MPV (test code = MPV) 8.4 7.4-10.4 [facility]2020-12-07 10:24:00 Test Item Value Reference Range Interpretation Comments Glucose Lvl (test code = Glucose Lvl) 66 70-99 [facility]2020-12-07 10:24:00 Test Item Value Reference Range Interpretation Comments BUN (test code = BUN) 19 7-22 [facility]2020-12-07 10:24:00 Test Item Value Reference Range Interpretation Comments Creatinine Lvl (test code = Creatinine 1.82 0.50-1.40 Lvl) [facility]2020-12-07 10:24:00 Test Item Value Reference Range Interpretation Comments Sodium Lvl (test code = Sodium Lvl) 139 135-145 [facility]2020-12-07 10:24:00 Test Item Value Reference Range Interpretation Comments Potassium Lvl (test code = Potassium 4.2 3.5-5.1 Lvl) [facility]2020-12-07 10:24:00 Test Item Value Reference Range Interpretation Comments Chloride Lvl (test code = Chloride Lvl) 105 95-109 [facility]2020-12-07 10:24:00 Test Item Value Reference Range Interpretation Comments CO2 (test code = CO2) 28 24-32 [facility]2020-12-07 10:24:00 Test Item Value Reference Range Interpretation Comments Calcium Lvl (test code = Calcium Lvl) 8.2 8.5-10.5 [facility]2020-12-07 10:24:00 Test Item Value Reference Range Interpretation Comments AGAP (test code = AGAP) 10.2 10.0-20.0 [facility]2020-12-07 10:24:00 Test Item Value Reference Range Interpretation Comments eGFR (test code = eGFR) 26 [facility] 10:24:00 Test Item Value Reference Range Interpretation Comments Segs (test code = Segs) 70.6 45.0-75.0 [place] 391170-12-07 10:24:00 Test Item Value Reference Range Interpretation Comments Lymphocytes (test code = Lymphocytes) 13.2 20.0-40.0 [place] 391170-12-07 10:24:00 Test Item Value Reference Range Interpretation Comments Monocytes (test code = Monocytes) 10.9 2.0-12.0 [facility]NzubyhnCIFMULMJDU3737-68-78 10:24:00 Test Item Value Reference Range Interpretation Comments Eosinophils (test code = 4.6 See_Comment [A utomated message] The Eosinophils) system which ge nerated this result tra nsmitted reference range : <=4.0. The reference r christiano was not used to int erpret this result as normal/abnormal . [facility]AllenTluxdqgCXQAUPUVKJ3466-60-66 10:24:00 Test Item Value Reference Range Interpretation Comments Basophils (test code = 0.7 See_Comment [Aut omated message] The Basophils) system which ge nerated this result tra nsmitted reference range : <=1.0. The reference r christiano was not used to int erpret this result as normal/abnormal . [facility]AllenRgjqdthEUJKLGRCLL9111-02-47 10:24:00 Test Item Value Reference Range Interpretation Comments Neutrophils # (test code = Neutrophils 5.3 1.5-8.1 #) [place] 391170-12-07 10:24:00 Test Item Value Reference Range Interpretation Comments Lymphocytes # (test code = Lymphocytes 1.0 1.0-5.5 #) [place] [address]-12-07 10:24:00 Test Item Value Reference Range Interpretation Comments Monocytes # (test code 0.8 See_Comment [Aut omated message] The = Monocytes #) system which generated this result tra nsmitted reference range : <=0.8. The reference r christiano was not used to int erpret this result as normal/abnormal . [facility]AllenFqxqvtfWGFGQVZBVZ3501-92-42 10:24:00 Test Item Value Reference Range Interpretation Comments Eosinophils # (test code 0.3 See_Comment [A utomated message] The = Eosinophils #) system whic h generated this result tra nsmitted reference range : <=0.5. The reference r christiano was not used to int erpret this result as normal/abnormal . [facility]AllenSfbbudzOSQBYNOKUA5206-29-29 10:24:00 Test Item Value Reference Range Interpretation Comments Basophils # (test code 0.1 See_Comment [Aut omated message] The = Basophils #) system which generated this result tra nsmitted reference range : <=0.2. The reference r christiano was not used to int erpret this result as normal/abnormal . [facility]AllenRwrltquURPCVKFCPV6953-42-47 10:24:00 Test Item Value Reference Range Interpretation Comments WBC (test code = WBC) 7.5 3.7-10.4 [facility]AllenCgneoczGSMHBOZNLJ9526-19-42 10:24:00 Test Item Value Reference Range Interpretation Comments RBC (test code = RBC) 3.85 4.20-5.40 [facility]AllenMswssiuZVZBOAFHOH0733-65-99 10:24:00 Test Item Value Reference Range Interpretation Comments Hgb (test code = Hgb) 10.6 12.0-16.0 [facility]AllenAobpqscCYRONKBRQZ3236-52-85 10:24:00 Test Item Value Reference Range Interpretation Comments Hct (test code = Hct) 32.1 36.0-48.0 [facility]AllenDhgepfhTGWPBXXQPY9943-43-66 10:24:00 Test Item Value Reference Range Interpretation Comments MCV (test code = MCV) 83.5 80.0-98.0 [facility]AllenBvygdiuVSMFYBHUIF8284-88-10 10:24:00 Test Item Value Reference Range Interpretation Comments MCH (test code = MCH) 27.7 pg 27.0-31.0 [facility]AllenHnlzjopQZTTCXRWSV2365-44-62 10:24:00 Test Item Value Reference Range Interpretation Comments MCHC (test code = MCHC) 33.1 32.0-36.0 [facility]AllenApknimaLHXVUYLVKY3465-15-55 10:24:00 Test Item Value Reference Range Interpretation Comments RDW (test code = RDW) 16.8 11.5-14.5 [place] 391170-12-07 10:24:00 Test Item Value Reference Range Interpretation Comments Platelet (test code = Platelet) 185 133-450 [facility]AllenMjjoqimHCLUDKLCSM4880-90-51 10:24:00 Test Item Value Reference Range Interpretation Comments MPV (test code = MPV) 8.4 7.4-10.4 [facility]2020-12-07 10:24:00 Test Item Value Reference Range Interpretation Comments Glucose Lvl (test code = Glucose Lvl) 66 70-99 [facility]2020-12-07 10:24:00 Test Item Value Reference Range Interpretation Comments BUN (test code = BUN) 19 7-22 [place] 468410-12-07 10:24:00 Test Item Value Reference Range Interpretation Comments Creatinine Lvl (test code = Creatinine 1.82 0.50-1.40 Lvl) [facility]2020-12-07 10:24:00 Test Item Value Reference Range Interpretation Comments Sodium Lvl (test code = Sodium Lvl) 139 135-145 [facility]2020-12-07 10:24:00 Test Item Value Reference Range Interpretation Comments Potassium Lvl (test code = Potassium 4.2 3.5-5.1 Lvl) [facility]2020-12-07 10:24:00 Test Item Value Reference Range Interpretation Comments Chloride Lvl (test code = Chloride Lvl) 105 95-109 [facility]2020-12-07 10:24:00 Test Item Value Reference Range Interpretation Comments CO2 (test code = CO2) 28 24-32 [place] 468410-12-07 10:24:00 Test Item Value Reference Range Interpretation Comments Calcium Lvl (test code = Calcium Lvl) 8.2 8.5-10.5 [place] 468410-12-07 10:24:00 Test Item Value Reference Range Interpretation Comments AGAP (test code = AGAP) 10.2 10.0-20.0 [facility]2020-12-07 10:24:00 Test Item Value Reference Range Interpretation Comments eGFR (test code = eGFR) 26 [facility]AllenZqwnrcoDNVMMRMYQE3740-53-13 10:24:00 Test Item Value Reference Range Interpretation Comments Segs (test code = Segs) 70.6 45.0-75.0 [facility]AllenStccykuOZYSMDATRI9830-21-94 10:24:00 Test Item Value Reference Range Interpretation Comments Lymphocytes (test code = Lymphocytes) 13.2 20.0-40.0 [place] 391170-12-07 10:24:00 Test Item Value Reference Range Interpretation Comments Monocytes (test code = Monocytes) 10.9 2.0-12.0 [facility]AllenMxahlrlYRJSUASSVX2653-75-93 10:24:00 Test Item Value Reference Range Interpretation Comments Eosinophils (test code = 4.6 See_Comment [A utomated message] The Eosinophils) system which ge nerated this result tra nsmitted reference range : <=4.0. The reference r christiano was not used to int erpret this result as normal/abnormal . [facility] McAllenJpligmyTAKUZUYCJN7081-31-00 10:24:00 Test Item Value Reference Range Interpretation Comments Basophils (test code = 0.7 See_Comment [Aut omated message] The Basophils) system which ge nerated this result tra nsmitted reference range : <=1.0. The reference r christiano was not used to int erpret this result as normal/abnormal . [facility]AllenSxtixwiHDRNBIMJVX6116-57-39 10:24:00 Test Item Value Reference Range Interpretation Comments Neutrophils # (test code = Neutrophils 5.3 1.5-8.1 #) [facility]AllenCbjpxggDDUMCXENQY4535-30-37 10:24:00 Test Item Value Reference Range Interpretation Comments Lymphocytes # (test code = Lymphocytes 1.0 1.0-5.5 #) [facility] McAllenAabuwjxIZRYQHWFWV7271-35-14 10:24:00 Test Item Value Reference Range Interpretation Comments Monocytes # (test code 0.8 See_Comment [Aut omated message] The = Monocytes #) system which generated this result tra nsmitted reference range : <=0.8. The reference r christiano was not used to int erpret this result as normal/abnormal . [facility] McAllenNkmdktjKPZHODUNPH4511-84-67 10:24:00 Test Item Value Reference Range Interpretation Comments Eosinophils # (test code 0.3 See_Comment [A utomated message] The = Eosinophils #) system [facility] h generated this result tra nsmitted reference range : <=0.5. The reference r christiano was not used to int erpret this result as normal/abnormal . [facility] McAllenTgqnaacQYMRTLGCVV7938-50-66 10:24:00 Test Item Value Reference Range Interpretation Comments Basophils # (test code 0.1 See_Comment [Aut omated message] The = Basophils #) system which generated this result tra nsmitted reference range : <=0.2. The reference r christiano was not used to int erpret this result as normal/abnormal . [facility] McAllenArsencoXIFCTMPOIR6819-34-04 10:24:00 Test Item Value Reference Range Interpretation Comments WBC (test code = WBC) 7.5 3.7-10.4 [facility]AllenOlzinrhSNSZHMLEVC1971-91-09 10:24:00 Test Item Value Reference Range Interpretation Comments RBC (test code = RBC) 3.85 4.20-5.40 [facility] McAllenLomgxkbJNRYMZXOUX0210-89-49 10:24:00 Test Item Value Reference Range Interpretation Comments Hgb (test code = Hgb) 10.6 12.0-16.0 [place] 391170-12-07 10:24:00 Test Item Value Reference Range Interpretation Comments Hct (test code = Hct) 32.1 36.0-48.0 [facility] McAllenVdrcbqdMOOPWHHZCM9429-44-62 10:24:00 Test Item Value Reference Range Interpretation Comments MCV (test code = MCV) 83.5 80.0-98.0 [facility] McAllenFfbpueoBIHLPFJJCD8955-73-00 10:24:00 Test Item Value Reference Range Interpretation Comments MCH (test code = MCH) 27.7 pg 27.0-31.0 [facility] McAllenGxnqtocJOLWZMFNWL7148-19-78 10:24:00 Test Item Value Reference Range Interpretation Comments MCHC (test code = MCHC) 33.1 32.0-36.0 [facility] McAllenGrjxewqDTFCGPPVDE2532-63-01 10:24:00 Test Item Value Reference Range Interpretation Comments RDW (test code = RDW) 16.8 11.5-14.5 [facility] McAllenTfzgwbxBARBJPUOTG8071-18-68 10:24:00 Test Item Value Reference Range Interpretation Comments Platelet (test code = Platelet) 185 133-450 [facility]AllenHjmrpcyYYPLXUEABA0168-92-57 10:24:00 Test Item Value Reference Range Interpretation Comments MPV (test code = MPV) 8.4 7.4-10.4 [place] 468410-12-07 10:24:00 Test Item Value Reference Range Interpretation Comments Glucose Lvl (test code = Glucose Lvl) 66 70-99 [place] 468410-12-07 10:24:00 Test Item Value Reference Range Interpretation Comments BUN (test code = BUN) 19 7-22 [place] 468410-12-07 10:24:00 Test Item Value Reference Range Interpretation Comments Creatinine Lvl (test code = Creatinine 1.82 0.50-1.40 Lvl) [facility]2020-12-07 10:24:00 Test Item Value Reference Range Interpretation Comments Sodium Lvl (test code = Sodium Lvl) 139 135-145 [place] 468410-12-07 10:24:00 Test Item Value Reference Range Interpretation Comments Potassium Lvl (test code = Potassium 4.2 3.5-5.1 Lvl) [place] 468410-12-07 10:24:00 Test Item Value Reference Range Interpretation Comments Chloride Lvl (test code = Chloride Lvl) 105 95-109 [place] 468410-12-07 10:24:00 Test Item Value Reference Range Interpretation Comments CO2 (test code = CO2) 28 24-32 [place] 468410-12-07 10:24:00 Test Item Value Reference Range Interpretation Comments Calcium Lvl (test code = Calcium Lvl) 8.2 8.5-10.5 [facility]2020-12-07 10:24:00 Test Item Value Reference Range Interpretation Comments AGAP (test code = AGAP) 10.2 10.0-20.0 [place] 468410-12-07 10:24:00 Test Item Value Reference Range Interpretation Comments eGFR (test code = eGFR) 26 [place] 391170-12-07 10:24:00 Test Item Value Reference Range Interpretation Comments Segs (test code = Segs) 70.6 45.0-75.0 [place] 391170-12-07 10:24:00 Test Item Value Reference Range Interpretation Comments Lymphocytes (test code = Lymphocytes) 13.2 20.0-40.0 [place] [address]-12-07 10:24:00 Test Item Value Reference Range Interpretation Comments Monocytes (test code = Monocytes) 10.9 2.0-12.0 [place] 391170-12-07 10:24:00 Test Item Value Reference Range Interpretation Comments Eosinophils (test code = 4.6 See_Comment [A utomated message] The Eosinophils) system which ge nerated this result tra nsmitted reference range : <=4.0. The reference r christiano was not used to int erpret this result as normal/abnormal . [facility]AllenSzrvvdeIJBVDATGTE4419-95-23 10:24:00 Test Item Value Reference Range Interpretation Comments Basophils (test code = 0.7 See_Comment [Aut omated message] The Basophils) system which ge nerated this result tra nsmitted reference range : <=1.0. The reference r christiano was not used to int erpret this result as normal/abnormal . [facility]AllenSlyfzerFVSYNURJAZ4495-30-58 10:24:00 Test Item Value Reference Range Interpretation Comments Neutrophils # (test code = Neutrophils 5.3 1.5-8.1 #) [facility]AllenMehwgjfXZPWPMRBIN1235-96-07 10:24:00 Test Item Value Reference Range Interpretation Comments Lymphocytes # (test code = Lymphocytes 1.0 1.0-5.5 #) [facility] McAllenSabnfifVLSCXWFJBT1769-56-04 10:24:00 Test Item Value Reference Range Interpretation Comments Monocytes # (test code 0.8 See_Comment [Aut omated message] The = Monocytes #) system which generated this result tra nsmitted reference range : <=0.8. The reference r christiano was not used to int erpret this result as normal/abnormal . [facility] McAllenDvgfvneIXFSIQPKDJ7933-52-09 10:24:00 Test Item Value Reference Range Interpretation Comments Eosinophils # (test code 0.3 See_Comment [A utomated message] The = Eosinophils #) system whic h generated this result tra nsmitted reference range : <=0.5. The reference r christiano was not used to int erpret this result as normal/abnormal . [facility]AllenIlkuccpIBPDFIPQQF1243-91-53 10:24:00 Test Item Value Reference Range Interpretation Comments Basophils # (test code 0.1 See_Comment [Aut omated message] The = Basophils #) system which generated this result tra nsmitted reference range : <=0.2. The reference r christiano was not used to int erpret this result as normal/abnormal . [facility]AllenEgzfgjjOVQLJGITQL0078-76-80 10:24:00 Test Item Value Reference Range Interpretation Comments WBC (test code = WBC) 7.5 3.7-10.4 [facility]AllenOmvqqxtWBSCWVCLUV9734-47-97 10:24:00 Test Item Value Reference Range Interpretation Comments RBC (test code = RBC) 3.85 4.20-5.40 [facility] McAllenVkbjxmaSRDLKJZZRL7241-62-62 10:24:00 Test Item Value Reference Range Interpretation Comments Hgb (test code = Hgb) 10.6 12.0-16.0 [place] [address]-12-07 10:24:00 Test Item Value Reference Range Interpretation Comments Hct (test code = Hct) 32.1 36.0-48.0 [facility] McAllenHtcooxnHEMPPVYVYC2774-77-94 10:24:00 Test Item Value Reference Range Interpretation Comments MCV (test code = MCV) 83.5 80.0-98.0 [place] 391170-12-07 10:24:00 Test Item Value Reference Range Interpretation Comments MCH (test code = MCH) 27.7 pg 27.0-31.0 [facility] McAllenYcuiwgvUCDRXXVTZC5435-40-20 10:24:00 Test Item Value Reference Range Interpretation Comments MCHC (test code = MCHC) 33.1 32.0-36.0 [facility] McAllenWontkamWOBBQCUINJ7961-89-03 10:24:00 Test Item Value Reference Range Interpretation Comments RDW (test code = RDW) 16.8 11.5-14.5 [facility]AllenJzfyiqlBGJEYZSMPP7344-29-34 10:24:00 Test Item Value Reference Range Interpretation Comments Platelet (test code = Platelet) 185 133-450 [facility] McAllenGutqcpyFRXYWHRSQQ9586-78-78 10:24:00 Test Item Value Reference Range Interpretation Comments MPV (test code = MPV) 8.4 7.4-10.4 [facility]2020-12-07 10:24:00 Test Item Value Reference Range Interpretation Comments Glucose Lvl (test code = Glucose Lvl) 66 70-99 [facility]2020-12-07 10:24:00 Test Item Value Reference Range Interpretation Comments BUN (test code = BUN) 19 7-22 [facility]2020-12-07 10:24:00 Test Item Value Reference Range Interpretation Comments Creatinine Lvl (test code = Creatinine 1.82 0.50-1.40 Lvl) [facility]2020-12-07 10:24:00 Test Item Value Reference Range Interpretation Comments Sodium Lvl (test code = Sodium Lvl) 139 135-145 [place] 468410-12-07 10:24:00 Test Item Value Reference Range Interpretation Comments Potassium Lvl (test code = Potassium 4.2 3.5-5.1 Lvl) [facility]2020-12-07 10:24:00 Test Item Value Reference Range Interpretation Comments Chloride Lvl (test code = Chloride Lvl) 105 95-109 [facility]2020-12-07 10:24:00 Test Item Value Reference Range Interpretation Comments CO2 (test code = CO2) 28 24-32 [facility]2020-12-07 10:24:00 Test Item Value Reference Range Interpretation Comments Calcium Lvl (test code = Calcium Lvl) 8.2 8.5-10.5 [facility]2020-12-07 10:24:00 Test Item Value Reference Range Interpretation Comments AGAP (test code = AGAP) 10.2 10.0-20.0 [facility]2020-12-07 10:24:00 Test Item Value Reference Range Interpretation Comments eGFR (test code = eGFR) 26 [facility]AllenAeicsnsOUQNGTHXLK4307-25-75 10:24:00 Test Item Value Reference Range Interpretation Comments Segs (test code = Segs) 70.6 45.0-75.0 [facility]AllenFmsqlwaRDMXXRXIMV9623-97-19 10:24:00 Test Item Value Reference Range Interpretation Comments Lymphocytes (test code = Lymphocytes) 13.2 20.0-40.0 [facility] McAllenYqoctlaENFPQNCYHU6818-51-12 10:24:00 Test Item Value Reference Range Interpretation Comments Monocytes (test code = Monocytes) 10.9 2.0-12.0 [place] 391170-12-07 10:24:00 Test Item Value Reference Range Interpretation Comments Eosinophils (test code = 4.6 See_Comment [A utomated message] The Eosinophils) system which ge nerated this result tra nsmitted reference range : <=4.0. The reference r christiano was not used to int erpret this result as normal/abnormal . [facility]AllenCmiojcwKJETLTFKNU7978-65-54 10:24:00 Test Item Value Reference Range Interpretation Comments Basophils (test code = 0.7 See_Comment [Aut omated message] The Basophils) system which ge nerated this result tra nsmitted reference range : <=1.0. The reference r christiano was not used to int erpret this result as normal/abnormal . [facility]AllenEgzgfnoELBUUHBMCN6331-32-53 10:24:00 Test Item Value Reference Range Interpretation Comments Neutrophils # (test code = Neutrophils 5.3 1.5-8.1 #) [facility] McAllenJkhurcpEHIUGAVILF5189-39-35 10:24:00 Test Item Value Reference Range Interpretation Comments Lymphocytes # (test code = Lymphocytes 1.0 1.0-5.5 #) [facility] McAllenIadmvrlWYBHFNEAOS6588-39-82 10:24:00 Test Item Value Reference Range Interpretation Comments Monocytes # (test code 0.8 See_Comment [Aut omated message] The = Monocytes #) system which generated this result tra nsmitted reference range : <=0.8. The reference r christiano was not used to int erpret this result as normal/abnormal . [facility]AllenAziqhaxJLZFXFHAHH5554-60-27 10:24:00 Test Item Value Reference Range Interpretation Comments Eosinophils # (test code 0.3 See_Comment [A utomated message] The = Eosinophils #) system whic h generated this result tra nsmitted reference range : <=0.5. The reference r christiano was not used to int erpret this result as normal/abnormal . [facility]AllenNfqzsdrTPFUFUCNSX7732-11-58 10:24:00 Test Item Value Reference Range Interpretation Comments Basophils # (test code 0.1 See_Comment [Aut omated message] The = Basophils #) system which generated this result tra nsmitted reference range : <=0.2. The reference r christiano was not used to int erpret this result as normal/abnormal . [facility]AllenRmyvmuoRKNODFJUZC2794-62-20 10:24:00 Test Item Value Reference Range Interpretation Comments WBC (test code = WBC) 7.5 3.7-10.4 [facility]AllenTmarjrkJFYZAYSGYQ5817-92-07 10:24:00 Test Item Value Reference Range Interpretation Comments RBC (test code = RBC) 3.85 4.20-5.40 [place] 391170-12-07 10:24:00 Test Item Value Reference Range Interpretation Comments Hgb (test code = Hgb) 10.6 12.0-16.0 [facility]AllenLgiusgqJOMSCHOTQA7989-59-06 10:24:00 Test Item Value Reference Range Interpretation Comments Hct (test code = Hct) 32.1 36.0-48.0 [facility] McAllenHyrdaisCYKFVTEIHD7049-43-58 10:24:00 Test Item Value Reference Range Interpretation Comments MCV (test code = MCV) 83.5 80.0-98.0 [facility]AllenQozvuiyOPUDGKCOXS7139-76-14 10:24:00 Test Item Value Reference Range Interpretation Comments MCH (test code = MCH) 27.7 pg 27.0-31.0 [facility]AllenEiiamxyPJOZDMVVXW1856-96-95 10:24:00 Test Item Value Reference Range Interpretation Comments MCHC (test code = MCHC) 33.1 32.0-36.0 [facility]AllenWvedxwlJWIYVACKEA3079-30-08 10:24:00 Test Item Value Reference Range Interpretation Comments RDW (test code = RDW) 16.8 11.5-14.5 [facility] McAllenBlohdknEAWTNTCBZW4665-84-72 10:24:00 Test Item Value Reference Range Interpretation Comments Platelet (test code = Platelet) 185 133-450 [facility] McAllenKnvrkwfCJJINFDYPK1834-01-50 10:24:00 Test Item Value Reference Range Interpretation Comments MPV (test code = MPV) 8.4 7.4-10.4 [facility]2020-12-07 10:24:00 Test Item Value Reference Range Interpretation Comments Glucose Lvl (test code = Glucose Lvl) 66 70-99 [facility]2020-12-07 10:24:00 Test Item Value Reference Range Interpretation Comments BUN (test code = BUN) 19 7-22 [facility]2020-12-07 10:24:00 Test Item Value Reference Range Interpretation Comments Creatinine Lvl (test code = Creatinine 1.82 0.50-1.40 Lvl) [facility]2020-12-07 10:24:00 Test Item Value Reference Range Interpretation Comments Sodium Lvl (test code = Sodium Lvl) 139 135-145 [facility]2020-12-07 10:24:00 Test Item Value Reference Range Interpretation Comments Potassium Lvl (test code = Potassium 4.2 3.5-5.1 Lvl) [facility]2020-12-07 10:24:00 Test Item Value Reference Range Interpretation Comments Chloride Lvl (test code = Chloride Lvl) 105 95-109 [place] 468410-12-07 10:24:00 Test Item Value Reference Range Interpretation Comments CO2 (test code = CO2) 28 24-32 [place] 468410-12-07 10:24:00 Test Item Value Reference Range Interpretation Comments Calcium Lvl (test code = Calcium Lvl) 8.2 8.5-10.5 [place] 468410-12-07 10:24:00 Test Item Value Reference Range Interpretation Comments AGAP (test code = AGAP) 10.2 10.0-20.0 [place] 468410-12-07 10:24:00 Test Item Value Reference Range Interpretation Comments eGFR (test code = eGFR) 26 [facility]YriwvquCNCVKKJNYX0449-23-81 10:24:00 Test Item Value Reference Range Interpretation Comments Segs (test code = Segs) 70.6 45.0-75.0 [place] 391170-12-07 10:24:00 Test Item Value Reference Range Interpretation Comments Lymphocytes (test code = Lymphocytes) 13.2 20.0-40.0 [place] 391170-12-07 10:24:00 Test Item Value Reference Range Interpretation Comments Monocytes (test code = Monocytes) 10.9 2.0-12.0 [place] 391170-12-07 10:24:00 Test Item Value Reference Range Interpretation Comments Eosinophils (test code = 4.6 See_Comment [A utomated message] The Eosinophils) system which ge nerated this result tra nsmitted reference range : <=4.0. The reference r christiano was not used to int erpret this result as normal/abnormal . [place] 391170-12-07 10:24:00 Test Item Value Reference Range Interpretation Comments Basophils (test code = 0.7 See_Comment [Aut omated message] The Basophils) system which ge nerated this result tra nsmitted reference range : <=1.0. The reference r christiano was not used to int erpret this result as normal/abnormal . [place] 391170-12-07 10:24:00 Test Item Value Reference Range Interpretation Comments Neutrophils # (test code = Neutrophils 5.3 1.5-8.1 #) [facility]HhymnqdRMFJDDSRIC1778-38-51 10:24:00 Test Item Value Reference Range Interpretation Comments Lymphocytes # (test code = Lymphocytes 1.0 1.0-5.5 #) [facility]AllenUnqafeuBFPOMWWDAM4148-94-64 10:24:00 Test Item Value Reference Range Interpretation Comments Monocytes # (test code 0.8 See_Comment [Aut omated message] The = Monocytes #) system which generated this result tra nsmitted reference range : <=0.8. The reference r christiano was not used to int erpret this result as normal/abnormal . [facility]AllenRvgrwdmZIWFWJKMZF1034-88-71 10:24:00 Test Item Value Reference Range Interpretation Comments Eosinophils # (test code 0.3 See_Comment [A utomated message] The = Eosinophils #) system whic h generated this result tra nsmitted reference range : <=0.5. The reference r christiano was not used to int erpret this result as normal/abnormal . [facility]AllenMjgnaowLCFTSZNQFS2956-21-22 10:24:00 Test Item Value Reference Range Interpretation Comments Basophils # (test code 0.1 See_Comment [Aut omated message] The = Basophils #) system which generated this result tra nsmitted reference range : <=0.2. The reference r christiano was not used to int erpret this result as normal/abnormal . [facility]AllenHddzazvQMVFOQPCGH6417-67-83 10:24:00 Test Item Value Reference Range Interpretation Comments WBC (test code = WBC) 7.5 3.7-10.4 [facility]AllenKbrfcwyNHYILLYRJS7359-16-30 10:24:00 Test Item Value Reference Range Interpretation Comments RBC (test code = RBC) 3.85 4.20-5.40 [facility]AllenMqqjzrdELFNDWZEZE9815-45-98 10:24:00 Test Item Value Reference Range Interpretation Comments Hgb (test code = Hgb) 10.6 12.0-16.0 [place] 391170-12-07 10:24:00 Test Item Value Reference Range Interpretation Comments Hct (test code = Hct) 32.1 36.0-48.0 [facility]AllenKuggiehUDXLUMYKYY4886-21-78 10:24:00 Test Item Value Reference Range Interpretation Comments MCV (test code = MCV) 83.5 80.0-98.0 [place] 391170-12-07 10:24:00 Test Item Value Reference Range Interpretation Comments MCH (test code = MCH) 27.7 pg 27.0-31.0 [place] [address]-12-07 10:24:00 Test Item Value Reference Range Interpretation Comments MCHC (test code = MCHC) 33.1 32.0-36.0 [place] 391170-12-07 10:24:00 Test Item Value Reference Range Interpretation Comments RDW (test code = RDW) 16.8 11.5-14.5 [place] [address]-12-07 10:24:00 Test Item Value Reference Range Interpretation Comments Platelet (test code = Platelet) 185 133-450 [facility]AllenSenognpOIOAPESWJO8359-79-75 10:24:00 Test Item Value Reference Range Interpretation Comments MPV (test code = MPV) 8.4 7.4-10.4 [facility]2020-12-07 10:24:00 Test Item Value Reference Range Interpretation Comments Glucose Lvl (test code = Glucose Lvl) 66 70-99 [facility]2020-12-07 10:24:00 Test Item Value Reference Range Interpretation Comments BUN (test code = BUN) 19 7-22 [facility]2020-12-07 10:24:00 Test Item Value Reference Range Interpretation Comments Creatinine Lvl (test code = Creatinine 1.82 0.50-1.40 Lvl) [facility]2020-12-07 10:24:00 Test Item Value Reference Range Interpretation Comments Sodium Lvl (test code = Sodium Lvl) 139 135-145 [place] 468410-12-07 10:24:00 Test Item Value Reference Range Interpretation Comments Potassium Lvl (test code = Potassium 4.2 3.5-5.1 Lvl) [facility]2020-12-07 10:24:00 Test Item Value Reference Range Interpretation Comments Chloride Lvl (test code = Chloride Lvl) 105 95-109 [facility]2020-12-07 10:24:00 Test Item Value Reference Range Interpretation Comments CO2 (test code = CO2) 28 24-32 [place] 468410-12-07 10:24:00 Test Item Value Reference Range Interpretation Comments Calcium Lvl (test code = Calcium Lvl) 8.2 8.5-10.5 [facility]2020-12-07 10:24:00 Test Item Value Reference Range Interpretation Comments AGAP (test code = AGAP) 10.2 10.0-20.0 [facility]2020-12-07 10:24:00 Test Item Value Reference Range Interpretation Comments eGFR (test code = eGFR) 26 [facility]AllenHyxwknpAFAHGFTOYW2175-25-28 10:24:00 Test Item Value Reference Range Interpretation Comments Segs (test code = Segs) 70.6 45.0-75.0 [facility]AllenIfwkafpBCNHGAVSLW0544-67-21 10:24:00 Test Item Value Reference Range Interpretation Comments Lymphocytes (test code = Lymphocytes) 13.2 20.0-40.0 [facility] McAllenIwyekchVPWEFUAWRB1681-94-50 10:24:00 Test Item Value Reference Range Interpretation Comments Monocytes (test code = Monocytes) 10.9 2.0-12.0 [facility] McAllenYttpnhfOEPAWZGBSH7260-70-75 10:24:00 Test Item Value Reference Range Interpretation Comments Eosinophils (test code = 4.6 See_Comment [A utomated message] The Eosinophils) system which ge nerated this result tra nsmitted reference range : <=4.0. The reference r christiano was not used to int erpret this result as normal/abnormal . [facility] McAllenUsfjbrqLWJZJUEBUU2729-25-70 10:24:00 Test Item Value Reference Range Interpretation Comments Basophils (test code = 0.7 See_Comment [Aut omated message] The Basophils) system which ge nerated this result tra nsmitted reference range : <=1.0. The reference r christiano was not used to int erpret this result as normal/abnormal . [facility] McAllenAxgwdagRXMRWLLDFH8363-31-14 10:24:00 Test Item Value Reference Range Interpretation Comments Neutrophils # (test code = Neutrophils 5.3 1.5-8.1 #) [facility]AllenRqwsopmVKJLZJFBJT7181-93-83 10:24:00 Test Item Value Reference Range Interpretation Comments Lymphocytes # (test code = Lymphocytes 1.0 1.0-5.5 #) [facility] McAllenXokiybxGBFPWRPQFJ0513-23-97 10:24:00 Test Item Value Reference Range Interpretation Comments Monocytes # (test code 0.8 See_Comment [Aut omated message] The = Monocytes #) system which generated this result tra nsmitted reference range : <=0.8. The reference r christiano was not used to int erpret this result as normal/abnormal . [facility] McAllenDumqfwtVTBJOANMHM3705-20-01 10:24:00 Test Item Value Reference Range Interpretation Comments Eosinophils # (test code 0.3 See_Comment [A utomated message] The = Eosinophils #) system whic h generated this result tra nsmitted reference range : <=0.5. The reference r christiano was not used to int erpret this result as normal/abnormal . [facility] McAllenPeljrquFUMTUUVYIQ7691-11-79 10:24:00 Test Item Value Reference Range Interpretation Comments Basophils # (test code 0.1 See_Comment [Aut omated message] The = Basophils #) system which generated this result tra nsmitted reference range : <=0.2. The reference r christiano was not used to int erpret this result as normal/abnormal . [facility] McAllenCvcgfsyWBRGDCMMSJ1425-45-03 10:24:00 Test Item Value Reference Range Interpretation Comments WBC (test code = WBC) 7.5 3.7-10.4 [facility] McAllenRybxquxDIMRPSXKIK6636-70-63 10:24:00 Test Item Value Reference Range Interpretation Comments RBC (test code = RBC) 3.85 4.20-5.40 [facility] McAllenSrzbuejMCWBJAOQUV7370-60-84 10:24:00 Test Item Value Reference Range Interpretation Comments Hgb (test code = Hgb) 10.6 12.0-16.0 [facility]AllenOmskedaUFAPCFGOWW3886-15-27 10:24:00 Test Item Value Reference Range Interpretation Comments Hct (test code = Hct) 32.1 36.0-48.0 [facility] McAllenBbzplxqFWYYMSNAPP0324-72-24 10:24:00 Test Item Value Reference Range Interpretation Comments MCV (test code = MCV) 83.5 80.0-98.0 [facility]AllenDoczslfDYYSEIDZUZ7101-00-93 10:24:00 Test Item Value Reference Range Interpretation Comments MCH (test code = MCH) 27.7 pg 27.0-31.0 [facility] McAllenHdhstjsAMJTXZVMPQ5413-60-52 10:24:00 Test Item Value Reference Range Interpretation Comments MCHC (test code = MCHC) 33.1 32.0-36.0 [place] 391170-12-07 10:24:00 Test Item Value Reference Range Interpretation Comments RDW (test code = RDW) 16.8 11.5-14.5 [place] 391170-12-07 10:24:00 Test Item Value Reference Range Interpretation Comments Platelet (test code = Platelet) 185 133-450 [facility] McAllenHlqipujIGKSFABKQU2388-72-42 10:24:00 Test Item Value Reference Range Interpretation Comments MPV (test code = MPV) 8.4 7.4-10.4 [facility]2020-12-07 10:24:00 Test Item Value Reference Range Interpretation Comments Glucose Lvl (test code = Glucose Lvl) 66 70-99 [facility]2020-12-07 10:24:00 Test Item Value Reference Range Interpretation Comments BUN (test code = BUN) 19 7-22 [facility]2020-12-07 10:24:00 Test Item Value Reference Range Interpretation Comments Creatinine Lvl (test code = Creatinine 1.82 0.50-1.40 Lvl) [facility]2020-12-07 10:24:00 Test Item Value Reference Range Interpretation Comments Sodium Lvl (test code = Sodium Lvl) 139 135-145 [facility]2020-12-07 10:24:00 Test Item Value Reference Range Interpretation Comments Potassium Lvl (test code = Potassium 4.2 3.5-5.1 Lvl) [facility]2020-12-07 10:24:00 Test Item Value Reference Range Interpretation Comments Chloride Lvl (test code = Chloride Lvl) 105 95-109 [facility]2020-12-07 10:24:00 Test Item Value Reference Range Interpretation Comments CO2 (test code = CO2) 28 24-32 [facility]2020-12-07 10:24:00 Test Item Value Reference Range Interpretation Comments Calcium Lvl (test code = Calcium Lvl) 8.2 8.5-10.5 [facility]2020-12-07 10:24:00 Test Item Value Reference Range Interpretation Comments AGAP (test code = AGAP) 10.2 10.0-20.0 [facility]2020-12-07 10:24:00 Test Item Value Reference Range Interpretation Comments eGFR (test code = eGFR) 26 [facility] McAllenZioequwBZHRWZJHDF8947-57-96 10:24:00 Test Item Value Reference Range Interpretation Comments Segs (test code = Segs) 70.6 45.0-75.0 [facility] McAllenGutxeasRVHGJDPSHX7255-79-17 10:24:00 Test Item Value Reference Range Interpretation Comments Lymphocytes (test code = Lymphocytes) 13.2 20.0-40.0 [facility] McAllenBxihlboCFKZREFLAF5521-05-91 10:24:00 Test Item Value Reference Range Interpretation Comments Monocytes (test code = Monocytes) 10.9 2.0-12.0 [facility] McAllenFkxrmtqFTCBNOAHKC7862-18-03 10:24:00 Test Item Value Reference Range Interpretation Comments Eosinophils (test code = 4.6 See_Comment [A utomated message] The Eosinophils) system which ge nerated this result tra nsmitted reference range : <=4.0. The reference r christiano was not used to int erpret this result as normal/abnormal . [facility] McAllenKsfiyezFUVMSHTFGO9287-94-91 10:24:00 Test Item Value Reference Range Interpretation Comments Basophils (test code = 0.7 See_Comment [Aut omated message] The Basophils) system which ge nerated this result tra nsmitted reference range : <=1.0. The reference r christiano was not used to int erpret this result as normal/abnormal . [facility] McAllenLlvndvmJKUHADLOZV9556-09-86 10:24:00 Test Item Value Reference Range Interpretation Comments Neutrophils # (test code = Neutrophils 5.3 1.5-8.1 #) [facility] McAllenGktsfygTHWCOOCYGY1614-85-72 10:24:00 Test Item Value Reference Range Interpretation Comments Lymphocytes # (test code = Lymphocytes 1.0 1.0-5.5 #) [facility] McAllenZcfnvxrWBAADTEFET9838-85-61 10:24:00 Test Item Value Reference Range Interpretation Comments Monocytes # (test code 0.8 See_Comment [Aut omated message] The = Monocytes #) system which generated this result tra nsmitted reference range : <=0.8. The reference r christiano was not used to int erpret this result as normal/abnormal . [facility] McAllenOjuwbllKXXFSCDFZF6833-96-87 10:24:00 Test Item Value Reference Range Interpretation Comments Eosinophils # (test code 0.3 See_Comment [A utomated message] The = Eosinophils #) system whic h generated this result tra nsmitted reference range : <=0.5. The reference r christiano was not used to int erpret this result as normal/abnormal . [facility] McAllenJuetszwNPUZZGYYBC4635-93-58 10:24:00 Test Item Value Reference Range Interpretation Comments Basophils # (test code 0.1 See_Comment [Aut omated message] The = Basophils #) system which generated this result tra nsmitted reference range : <=0.2. The reference r christiano was not used to int erpret this result as normal/abnormal . [facility] McAllenMcwtzsxXXAJGOKNOQ4582-05-80 10:24:00 Test Item Value Reference Range Interpretation Comments WBC (test code = WBC) 7.5 3.7-10.4 [facility]AllenOzhpxxwDZZZKBIHDJ5876-92-59 10:24:00 Test Item Value Reference Range Interpretation Comments RBC (test code = RBC) 3.85 4.20-5.40 [facility]AllenOozngcaVQHFXYTSIT0336-83-23 10:24:00 Test Item Value Reference Range Interpretation Comments Hgb (test code = Hgb) 10.6 12.0-16.0 [facility] McAllenTizwddzKXSMCQOHVD5484-42-86 10:24:00 Test Item Value Reference Range Interpretation Comments Hct (test code = Hct) 32.1 36.0-48.0 [facility]AllenAemiexbHIRTKCFXDF1086-79-25 10:24:00 Test Item Value Reference Range Interpretation Comments MCV (test code = MCV) 83.5 80.0-98.0 [facility] McAllenNkfrarjAFQHTWAZXR6119-19-88 10:24:00 Test Item Value Reference Range Interpretation Comments MCH (test code = MCH) 27.7 pg 27.0-31.0 [facility] McAllenUizqdizRYNBBHBLFN1981-27-56 10:24:00 Test Item Value Reference Range Interpretation Comments MCHC (test code = MCHC) 33.1 32.0-36.0 [facility]AllenUisgawoQFRMAEILUV8113-77-31 10:24:00 Test Item Value Reference Range Interpretation Comments RDW (test code = RDW) 16.8 11.5-14.5 [facility] McAllenVftzoakRITBWNHTMD7731-56-24 10:24:00 Test Item Value Reference Range Interpretation Comments Platelet (test code = Platelet) 185 133-450 [facility] McAllenEutykhyOASDTKYHOL1577-77-21 10:24:00 Test Item Value Reference Range Interpretation Comments MPV (test code = MPV) 8.4 7.4-10.4 [place] 468410-12-06 09:53:13 Test Item Value Reference Range Interpretation Comments Magnesium Lvl (test code = Magnesium 2.2 1.8-2.4 Lvl) [place] [address]-12-06 09:53:13 Test Item Value Reference Range Interpretation Comments Phosphorus (test code = Phosphorus) 2.9 2.5-4.5 [place] 468410-12-06 09:53:13 Test Item Value Reference Range Interpretation Comments Glucose Lvl (test code = Glucose Lvl) 102 70-99 [place] 468410-12-06 09:53:13 Test Item Value Reference Range Interpretation Comments BUN (test code = BUN) 17 7-22 [place] [address]-12-06 09:53:13 Test Item Value Reference Range Interpretation Comments Creatinine Lvl (test code = Creatinine 1.51 0.50-1.40 Lvl) [place] 468410-12-06 09:53:13 Test Item Value Reference Range Interpretation Comments Sodium Lvl (test code = Sodium Lvl) 140 135-145 [place] 468410-12-06 09:53:13 Test Item Value Reference Range Interpretation Comments Potassium Lvl (test code = Potassium 3.5 3.5-5.1 Lvl) [place] 468410-12-06 09:53:13 Test Item Value Reference Range Interpretation Comments Chloride Lvl (test code = Chloride Lvl) 106 95-109 [place] 468410-12-06 09:53:13 Test Item Value Reference Range Interpretation Comments CO2 (test code = CO2) 29 24-32 [place] 468410-12-06 09:53:13 Test Item Value Reference Range Interpretation Comments Calcium Lvl (test code = Calcium Lvl) 8.3 8.5-10.5 [place] 468410-12-06 09:53:13 Test Item Value Reference Range Interpretation Comments AGAP (test code = AGAP) 8.5 10.0-20.0 [place] 468410-12-06 09:53:13 Test Item Value Reference Range Interpretation Comments eGFR (test code = eGFR) 33 [place] [address]-12-06 09:53:13 Test Item Value Reference Range Interpretation Comments WBC (test code = WBC) 8.7 3.7-10.4 [place] [address]-12-06 09:53:13 Test Item Value Reference Range Interpretation Comments RBC (test code = RBC) 3.96 4.20-5.40 [place] [address]-12-06 09:53:13 Test Item Value Reference Range Interpretation Comments Hgb (test code = Hgb) 10.7 12.0-16.0 [place] [address]-12-06 09:53:13 Test Item Value Reference Range Interpretation Comments Hct (test code = Hct) 32.8 36.0-48.0 [place] [address]-12-06 09:53:13 Test Item Value Reference Range Interpretation Comments MCV (test code = MCV) 83.0 80.0-98.0 [place] [address]-12-06 09:53:13 Test Item Value Reference Range Interpretation Comments MCH (test code = MCH) 26.9 pg 27.0-31.0 [place] [address]-12-06 09:53:13 Test Item Value Reference Range Interpretation Comments MCHC (test code = MCHC) 32.4 32.0-36.0 [place] 391170-12-06 09:53:13 Test Item Value Reference Range Interpretation Comments RDW (test code = RDW) 16.5 11.5-14.5 [place] [address]-12-06 09:53:13 Test Item Value Reference Range Interpretation Comments Platelet (test code = Platelet) 157 133-450 [place] 391170-12-06 09:53:13 Test Item Value Reference Range Interpretation Comments MPV (test code = MPV) 7.5 7.4-10.4 [place] [address]-12-06 09:53:13 Test Item Value Reference Range Interpretation Comments Neutrophils # (test code = Neutrophils 7.2 1.5-8.1 #) [place] [address]-12-06 09:53:13 Test Item Value Reference Range Interpretation Comments Lymphocytes # (test code = Lymphocytes 0.9 1.0-5.5 #) [place] [address]-12-06 09:53:13 Test Item Value Reference Range Interpretation Comments Monocytes # (test code 0.5 See_Comment [Aut omated message] The = Monocytes #) system which generated this result tra nsmitted reference range : <=0.8. The reference r christiano was not used to int erpret this result as normal/abnormal . [facility]AllenUjvysyzNVPVBCECFB6835-69-09 09:53:13 Test Item Value Reference Range Interpretation Comments Basophils # (test code 0.1 See_Comment [Aut omated message] The = Basophils #) system which generated this result tra nsmitted reference range : <=0.2. The reference r christiano was not used to int erpret this result as normal/abnormal . [facility]AllenXdrgngwQODXWMIOBN8600-48-10 09:53:13 Test Item Value Reference Range Interpretation Comments Segs (test code = Segs) 83.0 45.0-75.0 [facility] McAllenZlxzpmvMGWIDHNERH7643-16-78 09:53:13 Test Item Value Reference Range Interpretation Comments Bands (test code = 0.0 See_Comment [Automat ed message] The Bands) system which ge nerated this result transmit sheba reference range : <=11.0. The reference r christiano was not used to interpr et this result as edy l/abnormal. [facility] McAllenUvqveckUAYBDHQFIO3716-86-09 09:53:13 Test Item Value Reference Range Interpretation Comments Lymphocytes (test code = Lymphocytes) 10.0 20.0-40.0 [place] 391170-12-06 09:53:13 Test Item Value Reference Range Interpretation Comments Monocytes (test code = Monocytes) 6.0 2.0-12.0 [place] 391170-12-06 09:53:13 Test Item Value Reference Range Interpretation Comments Basophils (test code = 1.0 See_Comment [Aut omated message] The Basophils) system which ge nerated this result tra nsmitted reference range : <=1.0. The reference r christiano was not used to int erpret this result as normal/abnormal . [facility] McAllenPujordjWAVAHSESJA6782-27-86 09:53:13 Test Item Value Reference Range Interpretation Comments Atypical Lymphs (test code = Atypical 0.0 Lymphs) [facility]AllenAwrfehdZSKRTJAPEF2503-88-48 09:53:13 Test Item Value Reference Range Interpretation Comments RBC Morph (test code = Normal (09/05/20 3:53 RBC Morph) AM) [facility] 09:53:13 Test Item Value Reference Range Interpretation Comments Plt Morph (test code = Normal (09/05/20 3:53 Plt Morph) AM) [place] 468410-12-06 09:53:13 Test Item Value Reference Range Interpretation Comments Magnesium Lvl (test code = Magnesium 2.2 1.8-2.4 Lvl) [place] 468410-12-06 09:53:13 Test Item Value Reference Range Interpretation Comments Phosphorus (test code = Phosphorus) 2.9 2.5-4.5 [place] 468410-12-06 09:53:13 Test Item Value Reference Range Interpretation Comments Glucose Lvl (test code = Glucose Lvl) 102 70-99 [place] 468410-12-06 09:53:13 Test Item Value Reference Range Interpretation Comments BUN (test code = BUN) 17 7-22 [place] 468410-12-06 09:53:13 Test Item Value Reference Range Interpretation Comments Creatinine Lvl (test code = Creatinine 1.51 0.50-1.40 Lvl) [place] 468410-12-06 09:53:13 Test Item Value Reference Range Interpretation Comments Sodium Lvl (test code = Sodium Lvl) 140 135-145 [facility]2020-12-06 09:53:13 Test Item Value Reference Range Interpretation Comments Potassium Lvl (test code = Potassium 3.5 3.5-5.1 Lvl) [facility]2020-12-06 09:53:13 Test Item Value Reference Range Interpretation Comments Chloride Lvl (test code = Chloride Lvl) 106 95-109 [place] 468410-12-06 09:53:13 Test Item Value Reference Range Interpretation Comments CO2 (test code = CO2) 29 24-32 [place] 468410-12-06 09:53:13 Test Item Value Reference Range Interpretation Comments Calcium Lvl (test code = Calcium Lvl) 8.3 8.5-10.5 [place] 468410-12-06 09:53:13 Test Item Value Reference Range Interpretation Comments AGAP (test code = AGAP) 8.5 10.0-20.0 [place] [address]-12-06 09:53:13 Test Item Value Reference Range Interpretation Comments eGFR (test code = eGFR) 33 [place] 468410-12-06 09:53:13 Test Item Value Reference Range Interpretation Comments Magnesium Lvl (test code = Magnesium 2.2 1.8-2.4 Lvl) [place] [address]-12-06 09:53:13 Test Item Value Reference Range Interpretation Comments Phosphorus (test code = Phosphorus) 2.9 2.5-4.5 [place] [address]-12-06 09:53:13 Test Item Value Reference Range Interpretation Comments Glucose Lvl (test code = Glucose Lvl) 102 70-99 [place] 468410-12-06 09:53:13 Test Item Value Reference Range Interpretation Comments BUN (test code = BUN) 17 7-22 [place] [address]-12-06 09:53:13 Test Item Value Reference Range Interpretation Comments Creatinine Lvl (test code = Creatinine 1.51 0.50-1.40 Lvl) [place] 468410-12-06 09:53:13 Test Item Value Reference Range Interpretation Comments Sodium Lvl (test code = Sodium Lvl) 140 135-145 [place] 468410-12-06 09:53:13 Test Item Value Reference Range Interpretation Comments Potassium Lvl (test code = Potassium 3.5 3.5-5.1 Lvl) [place] 468410-12-06 09:53:13 Test Item Value Reference Range Interpretation Comments Chloride Lvl (test code = Chloride Lvl) 106 95-109 [facility] 09:53:13 Test Item Value Reference Range Interpretation Comments WBC (test code = WBC) 8.7 3.7-10.4 [place] [address]-12-06 09:53:13 Test Item Value Reference Range Interpretation Comments CO2 (test code = CO2) 29 24-32 [place] 468410-12-06 09:53:13 Test Item Value Reference Range Interpretation Comments Calcium Lvl (test code = Calcium Lvl) 8.3 8.5-10.5 [place] [address]-12-06 09:53:13 Test Item Value Reference Range Interpretation Comments AGAP (test code = AGAP) 8.5 10.0-20.0 [facility]2020-12-06 09:53:13 Test Item Value Reference Range Interpretation Comments eGFR (test code = eGFR) 33 [place] [address]-12-06 09:53:13 Test Item Value Reference Range Interpretation Comments WBC (test code = WBC) 8.7 3.7-10.4 [place] [address]-12-06 09:53:13 Test Item Value Reference Range Interpretation Comments RBC (test code = RBC) 3.96 4.20-5.40 [place] [address]-12-06 09:53:13 Test Item Value Reference Range Interpretation Comments Hgb (test code = Hgb) 10.7 12.0-16.0 [place] [address]-12-06 09:53:13 Test Item Value Reference Range Interpretation Comments Hct (test code = Hct) 32.8 36.0-48.0 [place] [address]-12-06 09:53:13 Test Item Value Reference Range Interpretation Comments MCV (test code = MCV) 83.0 80.0-98.0 [place] [address]-12-06 09:53:13 Test Item Value Reference Range Interpretation Comments MCH (test code = MCH) 26.9 pg 27.0-31.0 [place] [address]-12-06 09:53:13 Test Item Value Reference Range Interpretation Comments RBC (test code = RBC) 3.96 4.20-5.40 [place] 391170-12-06 09:53:13 Test Item Value Reference Range Interpretation Comments MCHC (test code = MCHC) 32.4 32.0-36.0 [place] [address]-12-06 09:53:13 Test Item Value Reference Range Interpretation Comments RDW (test code = RDW) 16.5 11.5-14.5 [place] [address]-12-06 09:53:13 Test Item Value Reference Range Interpretation Comments Platelet (test code = Platelet) 157 133-450 [place] [address]-12-06 09:53:13 Test Item Value Reference Range Interpretation Comments MPV (test code = MPV) 7.5 7.4-10.4 [place] [address]-12-06 09:53:13 Test Item Value Reference Range Interpretation Comments Neutrophils # (test code = Neutrophils 7.2 1.5-8.1 #) [facility]UNE[facility]0766-[facility]-78 09:53:13 Test Item Value Reference Range Interpretation Comments Lymphocytes # (test code = Lymphocytes 0.9 1.0-5.5 #) [facility]AllenDzbmoslQNRJTIFYLC0624-91-98 09:53:13 Test Item Value Reference Range Interpretation Comments Monocytes # (test code 0.5 See_Comment [Aut omated message] The = Monocytes #) system which generated this result tra nsmitted reference range : <=0.8. The reference r christiano was not used to int erpret this result as normal/abnormal . [place] 391170-12-06 09:53:13 Test Item Value Reference Range Interpretation Comments Basophils # (test code 0.1 See_Comment [Aut omated message] The = Basophils #) system which generated this result tra nsmitted reference range : <=0.2. The reference r christiano was not used to int erpret this result as normal/abnormal . [facility]AllenFeorayvBTPDPCNUMV9045-30-30 09:53:13 Test Item Value Reference Range Interpretation Comments Segs (test code = Segs) 83.0 45.0-75.0 [place] 391170-12-06 09:53:13 Test Item Value Reference Range Interpretation Comments Bands (test code = 0.0 See_Comment [Automat ed message] The Bands) system which ge nerated this result transmit sheba reference range : <=11.0. The reference r christiano was not used to interpr et this result as edy l/abnormal. [facility]AllenIhbzbvyAMEYZIJSRO1299-91-12 09:53:13 Test Item Value Reference Range Interpretation Comments Hgb (test code = Hgb) 10.7 12.0-16.0 [place] [address]-12-06 09:53:13 Test Item Value Reference Range Interpretation Comments Lymphocytes (test code = Lymphocytes) 10.0 20.0-40.0 [place] 391170-12-06 09:53:13 Test Item Value Reference Range Interpretation Comments Monocytes (test code = Monocytes) 6.0 2.0-12.0 [place] 391170-12-06 09:53:13 Test Item Value Reference Range Interpretation Comments Basophils (test code = 1.0 See_Comment [Aut omated message] The Basophils) system which ge nerated this result tra nsmitted reference range : <=1.0. The reference r christiano was not used to int erpret this result as normal/abnormal . [facility]AllenArxeuchIUFAYTYJYN2686-42-67 09:53:13 Test Item Value Reference Range Interpretation Comments Atypical Lymphs (test code = Atypical 0.0 Lymphs) [place] 391170-12-06 09:53:13 Test Item Value Reference Range Interpretation Comments RBC Morph (test code = Normal (09/05/20 3:53 RBC Morph) AM) [place] [address]-12-06 09:53:13 Test Item Value Reference Range Interpretation Comments Plt Morph (test code = Normal (09/05/20 3:53 Plt Morph) AM) [place] 391170-12-06 09:53:13 Test Item Value Reference Range Interpretation Comments Hct (test code = Hct) 32.8 36.0-48.0 [place] [address]-12-06 09:53:13 Test Item Value Reference Range Interpretation Comments MCV (test code = MCV) 83.0 80.0-98.0 [place] [address]-12-06 09:53:13 Test Item Value Reference Range Interpretation Comments MCH (test code = MCH) 26.9 pg 27.0-31.0 [place] 391170-12-06 09:53:13 Test Item Value Reference Range Interpretation Comments MCHC (test code = MCHC) 32.4 32.0-36.0 [place] 391170-12-06 09:53:13 Test Item Value Reference Range Interpretation Comments RDW (test code = RDW) 16.5 11.5-14.5 [place] [address]-12-06 09:53:13 Test Item Value Reference Range Interpretation Comments Platelet (test code = Platelet) 157 133-450 [place] 391170-12-06 09:53:13 Test Item Value Reference Range Interpretation Comments MPV (test code = MPV) 7.5 7.4-10.4 [place] [address]-12-06 09:53:13 Test Item Value Reference Range Interpretation Comments Neutrophils # (test code = Neutrophils 7.2 1.5-8.1 #) [place] [address]-12-06 09:53:13 Test Item Value Reference Range Interpretation Comments Lymphocytes # (test code = Lymphocytes 0.9 1.0-5.5 #) [place] 391170-12-06 09:53:13 Test Item Value Reference Range Interpretation Comments Monocytes # (test code 0.5 See_Comment [Aut omated message] The = Monocytes #) system which generated this result tra nsmitted reference range : <=0.8. The reference r christiano was not used to int erpret this result as normal/abnormal . [place] [address]-12-06 09:53:13 Test Item Value Reference Range Interpretation Comments Basophils # (test code 0.1 See_Comment [Aut omated message] The = Basophils #) system which generated this result tra nsmitted reference range : <=0.2. The reference r christiano was not used to int erpret this result as normal/abnormal . [facility]AllenTkbybdiAWSRROXQUW4077-96-75 09:53:13 Test Item Value Reference Range Interpretation Comments Segs (test code = Segs) 83.0 45.0-75.0 [place] 391170-12-06 09:53:13 Test Item Value Reference Range Interpretation Comments Bands (test code = 0.0 See_Comment [Automat ed message] The Bands) system which ge nerated this result transmit sheba reference range : <=11.0. The reference r christiano was not used to interpr et this result as edy l/abnormal. [facility]AllenDtnjqktMJKOIAFFTD8072-17-64 09:53:13 Test Item Value Reference Range Interpretation Comments Lymphocytes (test code = Lymphocytes) 10.0 20.0-40.0 [place] [address]-12-06 09:53:13 Test Item Value Reference Range Interpretation Comments Monocytes (test code = Monocytes) 6.0 2.0-12.0 [place] [address]-12-06 09:53:13 Test Item Value Reference Range Interpretation Comments Basophils (test code = 1.0 See_Comment [Aut omated message] The Basophils) system which ge nerated this result tra nsmitted reference range : <=1.0. The reference r christiano was not used to int erpret this result as normal/abnormal . [place] [address]-12-06 09:53:13 Test Item Value Reference Range Interpretation Comments Atypical Lymphs (test code = Atypical 0.0 Lymphs) [address]12-06 09:53:13 Test Item Value Reference Range Interpretation Comments RBC Morph (test code = Normal (09/05/20 3:53 RBC Morph) AM) [address]12-06 09:53:13 Test Item Value Reference Range Interpretation Comments Plt Morph (test code = Normal (09/05/20 3:53 Plt Morph) AM) [place] [address]-12-06 09:53:13 Test Item Value Reference Range Interpretation Comments Magnesium Lvl (test code = Magnesium 2.2 1.8-2.4 Lvl) [address]12-06 09:53:13 Test Item Value Reference Range Interpretation Comments Phosphorus (test code = Phosphorus) 2.9 2.5-4.5 [address]12-06 09:53:13 Test Item Value Reference Range Interpretation Comments Glucose Lvl (test code = Glucose Lvl) 102 70-99 [place] [address]-12-06 09:53:13 Test Item Value Reference Range Interpretation Comments BUN (test code = BUN) 17 7-22 [place] [address]-12-06 09:53:13 Test Item Value Reference Range Interpretation Comments Creatinine Lvl (test code = Creatinine 1.51 0.50-1.40 Lvl) [address]12-06 09:53:13 Test Item Value Reference Range Interpretation Comments Sodium Lvl (test code = Sodium Lvl) 140 135-145 [place] [address]-12-06 09:53:13 Test Item Value Reference Range Interpretation Comments Potassium Lvl (test code = Potassium 3.5 3.5-5.1 Lvl) [address]12-06 09:53:13 Test Item Value Reference Range Interpretation Comments Chloride Lvl (test code = Chloride Lvl) 106 95-109 [place] [address]-12-06 09:53:13 Test Item Value Reference Range Interpretation Comments CO2 (test code = CO2) 29 24-32 [address]12-06 09:53:13 Test Item Value Reference Range Interpretation Comments Calcium Lvl (test code = Calcium Lvl) 8.3 8.5-10.5 [facility]2020-12-06 09:53:13 Test Item Value Reference Range Interpretation Comments AGAP (test code = AGAP) 8.5 10.0-20.0 [place] [address]-12-06 09:53:13 Test Item Value Reference Range Interpretation Comments eGFR (test code = eGFR) 33 [place] [address]-12-06 09:53:13 Test Item Value Reference Range Interpretation Comments WBC (test code = WBC) 8.7 3.7-10.4 [place] [address]-12-06 09:53:13 Test Item Value Reference Range Interpretation Comments RBC (test code = RBC) 3.96 4.20-5.40 [place] [address]-12-06 09:53:13 Test Item Value Reference Range Interpretation Comments Hgb (test code = Hgb) 10.7 12.0-16.0 [place] [address]-12-06 09:53:13 Test Item Value Reference Range Interpretation Comments Hct (test code = Hct) 32.8 36.0-48.0 [place] [address]-12-06 09:53:13 Test Item Value Reference Range Interpretation Comments MCV (test code = MCV) 83.0 80.0-98.0 [place] 391170-12-06 09:53:13 Test Item Value Reference Range Interpretation Comments MCH (test code = MCH) 26.9 pg 27.0-31.0 [place] 391170-12-06 09:53:13 Test Item Value Reference Range Interpretation Comments MCHC (test code = MCHC) 32.4 32.0-36.0 [place] [address]-12-06 09:53:13 Test Item Value Reference Range Interpretation Comments RDW (test code = RDW) 16.5 11.5-14.5 [place] [address]-12-06 09:53:13 Test Item Value Reference Range Interpretation Comments Platelet (test code = Platelet) 157 133-450 [place] [address]-12-06 09:53:13 Test Item Value Reference Range Interpretation Comments MPV (test code = MPV) 7.5 7.4-10.4 [place] [address]-12-06 09:53:13 Test Item Value Reference Range Interpretation Comments Neutrophils # (test code = Neutrophils 7.2 1.5-8.1 #) [facility]AllenLyxqmbcPGSNBZVYNA5624-61-62 09:53:13 Test Item Value Reference Range Interpretation Comments Lymphocytes # (test code = Lymphocytes 0.9 1.0-5.5 #) [facility]AllenRpxbpqnMOQLZHIGTK5355-26-09 09:53:13 Test Item Value Reference Range Interpretation Comments Monocytes # (test code 0.5 See_Comment [Aut omated message] The = Monocytes #) system which generated this result tra nsmitted reference range : <=0.8. The reference r christiano was not used to int erpret this result as normal/abnormal . [place] [address]-12-06 09:53:13 Test Item Value Reference Range Interpretation Comments Basophils # (test code 0.1 See_Comment [Aut omated message] The = Basophils #) system which generated this result tra nsmitted reference range : <=0.2. The reference r christiano was not used to int erpret this result as normal/abnormal . [facility] McAllenGmvucwoXOCKXSWSOK5786-23-35 09:53:13 Test Item Value Reference Range Interpretation Comments Segs (test code = Segs) 83.0 45.0-75.0 [place] [address]-12-06 09:53:13 Test Item Value Reference Range Interpretation Comments Bands (test code = 0.0 See_Comment [Automat ed message] The Bands) system which ge nerated this result transmit sheba reference range : <=11.0. The reference r christiano was not used to interpr et this result as edy l/abnormal. [facility]AllenYytsqwwXLRQNVNVWY3423-38-83 09:53:13 Test Item Value Reference Range Interpretation Comments Lymphocytes (test code = Lymphocytes) 10.0 20.0-40.0 [place] [address]-12-06 09:53:13 Test Item Value Reference Range Interpretation Comments Monocytes (test code = Monocytes) 6.0 2.0-12.0 [place] [address]-12-06 09:53:13 Test Item Value Reference Range Interpretation Comments Basophils (test code = 1.0 See_Comment [Aut omated message] The Basophils) system which ge nerated this result tra nsmitted reference range : <=1.0. The reference r christiano was not used to int erpret this result as normal/abnormal . [place] [address]-12-06 09:53:13 Test Item Value Reference Range Interpretation Comments Atypical Lymphs (test code = Atypical 0.0 Lymphs) [place] [address]-12-06 09:53:13 Test Item Value Reference Range Interpretation Comments RBC Morph (test code = Normal (09/05/20 3:53 RBC Morph) AM) [address]12-06 09:53:13 Test Item Value Reference Range Interpretation Comments Plt Morph (test code = Normal (09/05/20 3:53 Plt Morph) AM) [place] [address]-12-06 09:53:13 Test Item Value Reference Range Interpretation Comments Magnesium Lvl (test code = Magnesium 2.2 1.8-2.4 Lvl) [place] [address]-12-06 09:53:13 Test Item Value Reference Range Interpretation Comments Phosphorus (test code = Phosphorus) 2.9 2.5-4.5 [place] [address]-12-06 09:53:13 Test Item Value Reference Range Interpretation Comments Glucose Lvl (test code = Glucose Lvl) 102 70-99 [place] [address]-12-06 09:53:13 Test Item Value Reference Range Interpretation Comments BUN (test code = BUN) 17 7-22 [place] [address]-12-06 09:53:13 Test Item Value Reference Range Interpretation Comments Creatinine Lvl (test code = Creatinine 1.51 0.50-1.40 Lvl) [place] [address]-12-06 09:53:13 Test Item Value Reference Range Interpretation Comments Sodium Lvl (test code = Sodium Lvl) 140 135-145 [place] [address]-12-06 09:53:13 Test Item Value Reference Range Interpretation Comments Potassium Lvl (test code = Potassium 3.5 3.5-5.1 Lvl) [place] [address]-12-06 09:53:13 Test Item Value Reference Range Interpretation Comments Chloride Lvl (test code = Chloride Lvl) 106 95-109 [place] [address]-12-06 09:53:13 Test Item Value Reference Range Interpretation Comments CO2 (test code = CO2) 29 24-32 [place] 468410-12-06 09:53:13 Test Item Value Reference Range Interpretation Comments Calcium Lvl (test code = Calcium Lvl) 8.3 8.5-10.5 [place] 468410-12-06 09:53:13 Test Item Value Reference Range Interpretation Comments AGAP (test code = AGAP) 8.5 10.0-20.0 [address]12-06 09:53:13 Test Item Value Reference Range Interpretation Comments eGFR (test code = eGFR) 33 [place] [address]-12-06 09:53:13 Test Item Value Reference Range Interpretation Comments WBC (test code = WBC) 8.7 3.7-10.4 [place] [address]-12-06 09:53:13 Test Item Value Reference Range Interpretation Comments RBC (test code = RBC) 3.96 4.20-5.40 [place] [address]-12-06 09:53:13 Test Item Value Reference Range Interpretation Comments Hgb (test code = Hgb) 10.7 12.0-16.0 [place] [address]-12-06 09:53:13 Test Item Value Reference Range Interpretation Comments Hct (test code = Hct) 32.8 36.0-48.0 [place] [address]-12-06 09:53:13 Test Item Value Reference Range Interpretation Comments MCV (test code = MCV) 83.0 80.0-98.0 [place] [address]-12-06 09:53:13 Test Item Value Reference Range Interpretation Comments MCH (test code = MCH) 26.9 pg 27.0-31.0 [place] [address]-12-06 09:53:13 Test Item Value Reference Range Interpretation Comments MCHC (test code = MCHC) 32.4 32.0-36.0 [place] [address]-12-06 09:53:13 Test Item Value Reference Range Interpretation Comments RDW (test code = RDW) 16.5 11.5-14.5 [place] [address]-12-06 09:53:13 Test Item Value Reference Range Interpretation Comments Platelet (test code = Platelet) 157 133-450 [place] [address]-12-06 09:53:13 Test Item Value Reference Range Interpretation Comments MPV (test code = MPV) 7.5 7.4-10.4 [place] 391170-12-06 09:53:13 Test Item Value Reference Range Interpretation Comments Neutrophils # (test code = Neutrophils 7.2 1.5-8.1 #) [place] 391170-12-06 09:53:13 Test Item Value Reference Range Interpretation Comments Lymphocytes # (test code = Lymphocytes 0.9 1.0-5.5 #) [place] [address]-12-06 09:53:13 Test Item Value Reference Range Interpretation Comments Monocytes # (test code 0.5 See_Comment [Aut omated message] The = Monocytes #) system which generated this result tra nsmitted reference range : <=0.8. The reference r christiano was not used to int erpret this result as normal/abnormal . [place] [address]-12-06 09:53:13 Test Item Value Reference Range Interpretation Comments Basophils # (test code 0.1 See_Comment [Aut omated message] The = Basophils #) system which generated this result tra nsmitted reference range : <=0.2. The reference r christiano was not used to int erpret this result as normal/abnormal . [facility]AllenPwfbjebMKTQGDXENV9991-79-48 09:53:13 Test Item Value Reference Range Interpretation Comments Segs (test code = Segs) 83.0 45.0-75.0 [place] 391170-12-06 09:53:13 Test Item Value Reference Range Interpretation Comments Bands (test code = 0.0 See_Comment [Automat ed message] The Bands) system which ge nerated this result transmit sheba reference range : <=11.0. The reference r christiano was not used to interpr et this result as edy l/abnormal. [place] 391170-12-06 09:53:13 Test Item Value Reference Range Interpretation Comments Lymphocytes (test code = Lymphocytes) 10.0 20.0-40.0 [place] 391170-12-06 09:53:13 Test Item Value Reference Range Interpretation Comments Monocytes (test code = Monocytes) 6.0 2.0-12.0 [place] [address]-12-06 09:53:13 Test Item Value Reference Range Interpretation Comments Basophils (test code = 1.0 See_Comment [Aut omated message] The Basophils) system which ge nerated this result tra nsmitted reference range : <=1.0. The reference r christiano was not used to int erpret this result as normal/abnormal . [facility]AllenAflzgypIINADIADCB1000-38-68 09:53:13 Test Item Value Reference Range Interpretation Comments Atypical Lymphs (test code = Atypical 0.0 Lymphs) [place] 391170-12-06 09:53:13 Test Item Value Reference Range Interpretation Comments RBC Morph (test code = Normal (09/05/20 3:53 RBC Morph) AM) [place] 391170-12-06 09:53:13 Test Item Value Reference Range Interpretation Comments Plt Morph (test code = Normal (09/05/20 3:53 Plt Morph) AM) [place] 468410-12-06 09:53:13 Test Item Value Reference Range Interpretation Comments Magnesium Lvl (test code = Magnesium 2.2 1.8-2.4 Lvl) [place] 468410-12-06 09:53:13 Test Item Value Reference Range Interpretation Comments Phosphorus (test code = Phosphorus) 2.9 2.5-4.5 [place] 468410-12-06 09:53:13 Test Item Value Reference Range Interpretation Comments Glucose Lvl (test code = Glucose Lvl) 102 70-99 [place] 468410-12-06 09:53:13 Test Item Value Reference Range Interpretation Comments BUN (test code = BUN) 17 7-22 [place] 468410-12-06 09:53:13 Test Item Value Reference Range Interpretation Comments Creatinine Lvl (test code = Creatinine 1.51 0.50-1.40 Lvl) [place] 468410-12-06 09:53:13 Test Item Value Reference Range Interpretation Comments Sodium Lvl (test code = Sodium Lvl) 140 135-145 [place] 468410-12-06 09:53:13 Test Item Value Reference Range Interpretation Comments Potassium Lvl (test code = Potassium 3.5 3.5-5.1 Lvl) [place] 468410-12-06 09:53:13 Test Item Value Reference Range Interpretation Comments Chloride Lvl (test code = Chloride Lvl) 106 95-109 [place] [address]-12-06 09:53:13 Test Item Value Reference Range Interpretation Comments CO2 (test code = CO2) 29 24-32 [place] [address]-12-06 09:53:13 Test Item Value Reference Range Interpretation Comments Calcium Lvl (test code = Calcium Lvl) 8.3 8.5-10.5 [place] [address]-12-06 09:53:13 Test Item Value Reference Range Interpretation Comments AGAP (test code = AGAP) 8.5 10.0-20.0 [place] [address]-12-06 09:53:13 Test Item Value Reference Range Interpretation Comments eGFR (test code = eGFR) 33 [place] [address]-12-06 09:53:13 Test Item Value Reference Range Interpretation Comments WBC (test code = WBC) 8.7 3.7-10.4 [place] [address]-12-06 09:53:13 Test Item Value Reference Range Interpretation Comments RBC (test code = RBC) 3.96 4.20-5.40 [place] [address]-12-06 09:53:13 Test Item Value Reference Range Interpretation Comments Hgb (test code = Hgb) 10.7 12.0-16.0 [place] [address]-12-06 09:53:13 Test Item Value Reference Range Interpretation Comments Hct (test code = Hct) 32.8 36.0-48.0 [place] [address]-12-06 09:53:13 Test Item Value Reference Range Interpretation Comments MCV (test code = MCV) 83.0 80.0-98.0 [place] [address]-12-06 09:53:13 Test Item Value Reference Range Interpretation Comments MCH (test code = MCH) 26.9 pg 27.0-31.0 [place] [address]-12-06 09:53:13 Test Item Value Reference Range Interpretation Comments MCHC (test code = MCHC) 32.4 32.0-36.0 [place] [address]-12-06 09:53:13 Test Item Value Reference Range Interpretation Comments RDW (test code = RDW) 16.5 11.5-14.5 [place] [address]-12-06 09:53:13 Test Item Value Reference Range Interpretation Comments Platelet (test code = Platelet) 157 133-450 [place] [address]-12-06 09:53:13 Test Item Value Reference Range Interpretation Comments MPV (test code = MPV) 7.5 7.4-10.4 [place] 391170-12-06 09:53:13 Test Item Value Reference Range Interpretation Comments Neutrophils # (test code = Neutrophils 7.2 1.5-8.1 #) [facility]VnnggbeLZFZBAOKDQ7927-91-96 09:53:13 Test Item Value Reference Range Interpretation Comments Lymphocytes # (test code = Lymphocytes 0.9 1.0-5.5 #) [facility]AllenPfhnfjtKYXHBTAOCQ4913-40-57 09:53:13 Test Item Value Reference Range Interpretation Comments Monocytes # (test code 0.5 See_Comment [Aut omated message] The = Monocytes #) system which generated this result tra nsmitted reference range : <=0.8. The reference r christiano was not used to int erpret this result as normal/abnormal . [facility]AllenNmzfkbrUCMGONCNBR4633-24-68 09:53:13 Test Item Value Reference Range Interpretation Comments Basophils # (test code 0.1 See_Comment [Aut omated message] The = Basophils #) system which generated this result tra nsmitted reference range : <=0.2. The reference r christiano was not used to int erpret this result as normal/abnormal . [facility] [place]cnXDVBRJLDEK7048-71-04 09:53:13 Test Item Value Reference Range Interpretation Comments Segs (test code = Segs) 83.0 45.0-75.0 [place] [address]-12-06 09:53:13 Test Item Value Reference Range Interpretation Comments Bands (test code = 0.0 See_Comment [Automat ed message] The Bands) system which ge nerated this result transmit sheba reference range : <=11.0. The reference r christiano was not used to interpr et this result as edy l/abnormal. [place] [address]-12-06 09:53:13 Test Item Value Reference Range Interpretation Comments Lymphocytes (test code = Lymphocytes) 10.0 20.0-40.0 [place] [address]-12-06 09:53:13 Test Item Value Reference Range Interpretation Comments Monocytes (test code = Monocytes) 6.0 2.0-12.0 [place] [address]-12-06 09:53:13 Test Item Value Reference Range Interpretation Comments Basophils (test code = 1.0 See_Comment [Aut omated message] The Basophils) system which ge nerated this result tra nsmitted reference range : <=1.0. The reference r christiano was not used to int erpret this result as normal/abnormal . [place] 391170-12-06 09:53:13 Test Item Value Reference Range Interpretation Comments Atypical Lymphs (test code = Atypical 0.0 Lymphs) [place] [address]-12-06 09:53:13 Test Item Value Reference Range Interpretation Comments RBC Morph (test code = Normal (09/05/20 3:53 RBC Morph) AM) [place] [address]-12-06 09:53:13 Test Item Value Reference Range Interpretation Comments Plt Morph (test code = Normal (09/05/20 3:53 Plt Morph) AM) [place] 468410-12-06 09:53:13 Test Item Value Reference Range Interpretation Comments Magnesium Lvl (test code = Magnesium 2.2 1.8-2.4 Lvl) [place] 468410-12-06 09:53:13 Test Item Value Reference Range Interpretation Comments Phosphorus (test code = Phosphorus) 2.9 2.5-4.5 [place] 468410-12-06 09:53:13 Test Item Value Reference Range Interpretation Comments Magnesium Lvl (test code = Magnesium 2.2 1.8-2.4 Lvl) [place] 468410-12-06 09:53:13 Test Item Value Reference Range Interpretation Comments Phosphorus (test code = Phosphorus) 2.9 2.5-4.5 [place] [address]-12-06 09:53:13 Test Item Value Reference Range Interpretation Comments Glucose Lvl (test code = Glucose Lvl) 102 70-99 [place] 468410-12-06 09:53:13 Test Item Value Reference Range Interpretation Comments BUN (test code = BUN) 17 7-22 [place] [address]-12-06 09:53:13 Test Item Value Reference Range Interpretation Comments Creatinine Lvl (test code = Creatinine 1.51 0.50-1.40 Lvl) [place] 468410-12-06 09:53:13 Test Item Value Reference Range Interpretation Comments Sodium Lvl (test code = Sodium Lvl) 140 135-145 [place] [address]-12-06 09:53:13 Test Item Value Reference Range Interpretation Comments Glucose Lvl (test code = Glucose Lvl) 102 70-99 [place] [address]-12-06 09:53:13 Test Item Value Reference Range Interpretation Comments Potassium Lvl (test code = Potassium 3.5 3.5-5.1 Lvl) [place] [address]-12-06 09:53:13 Test Item Value Reference Range Interpretation Comments Chloride Lvl (test code = Chloride Lvl) 106 95-109 [place] [address]-12-06 09:53:13 Test Item Value Reference Range Interpretation Comments CO2 (test code = CO2) 29 24-32 [place] [address]-12-06 09:53:13 Test Item Value Reference Range Interpretation Comments Calcium Lvl (test code = Calcium Lvl) 8.3 8.5-10.5 [place] [address]-12-06 09:53:13 Test Item Value Reference Range Interpretation Comments AGAP (test code = AGAP) 8.5 10.0-20.0 [place] [address]-12-06 09:53:13 Test Item Value Reference Range Interpretation Comments eGFR (test code = eGFR) 33 [place] [address]-12-06 09:53:13 Test Item Value Reference Range Interpretation Comments WBC (test code = WBC) 8.7 3.7-10.4 [place] [address]-12-06 09:53:13 Test Item Value Reference Range Interpretation Comments RBC (test code = RBC) 3.96 4.20-5.40 [place] [address]-12-06 09:53:13 Test Item Value Reference Range Interpretation Comments Hgb (test code = Hgb) 10.7 12.0-16.0 [place] [address]-12-06 09:53:13 Test Item Value Reference Range Interpretation Comments Hct (test code = Hct) 32.8 36.0-48.0 [place] [address]-12-06 09:53:13 Test Item Value Reference Range Interpretation Comments BUN (test code = BUN) 17 7-22 [place] [address]-12-06 09:53:13 Test Item Value Reference Range Interpretation Comments MCV (test code = MCV) 83.0 80.0-98.0 [place] [address]-12-06 09:53:13 Test Item Value Reference Range Interpretation Comments MCH (test code = MCH) 26.9 pg 27.0-31.0 [place] [address]-12-06 09:53:13 Test Item Value Reference Range Interpretation Comments MCHC (test code = MCHC) 32.4 32.0-36.0 [place] [address]-12-06 09:53:13 Test Item Value Reference Range Interpretation Comments RDW (test code = RDW) 16.5 11.5-14.5 [place] [address]-12-06 09:53:13 Test Item Value Reference Range Interpretation Comments Platelet (test code = Platelet) 157 133-450 [place] [address]-12-06 09:53:13 Test Item Value Reference Range Interpretation Comments MPV (test code = MPV) 7.5 7.4-10.4 [place] [address]-12-06 09:53:13 Test Item Value Reference Range Interpretation Comments Neutrophils # (test code = Neutrophils 7.2 1.5-8.1 #) [place] [address]-12-06 09:53:13 Test Item Value Reference Range Interpretation Comments Lymphocytes # (test code = Lymphocytes 0.9 1.0-5.5 #) [place] [address]-12-06 09:53:13 Test Item Value Reference Range Interpretation Comments Monocytes # (test code 0.5 See_Comment [Aut omated message] The = Monocytes #) system which generated this result tra nsmitted reference range : <=0.8. The reference r christiano was not used to int erpret this result as normal/abnormal . [place] [address]-12-06 09:53:13 Test Item Value Reference Range Interpretation Comments Basophils # (test code 0.1 See_Comment [Aut omated message] The = Basophils #) system which generated this result tra nsmitted reference range : <=0.2. The reference r christiano was not used to int erpret this result as normal/abnormal . [facility]2020-12-06 09:53:13 Test Item Value Reference Range Interpretation Comments Creatinine Lvl (test code = Creatinine 1.51 0.50-1.40 Lvl) [facility] [place]gebSASWZMWBJU2102-65-13 09:53:13 Test Item Value Reference Range Interpretation Comments Segs (test code = Segs) 83.0 45.0-75.0 [place] 391170-12-06 09:53:13 Test Item Value Reference Range Interpretation Comments Bands (test code = 0.0 See_Comment [Automat ed message] The Bands) system which ge nerated this result transmit sheba reference range : <=11.0. The reference r christiano was not used to interpr et this result as edy l/abnormal. [facility] [place]QmjxnngSZYKFRAGYK9594-69-71 09:53:13 Test Item Value Reference Range Interpretation Comments Lymphocytes (test code = Lymphocytes) 10.0 20.0-40.0 [place] 391170-12-06 09:53:13 Test Item Value Reference Range Interpretation Comments Monocytes (test code = Monocytes) 6.0 2.0-12.0 [facility] [place]AllenNflvhspFFRHEXJLWD5074-15-66 09:53:13 Test Item Value Reference Range Interpretation Comments Basophils (test code = 1.0 See_Comment [Aut omated message] The Basophils) system which ge nerated this result tra nsmitted reference range : <=1.0. The reference r christiano was not used to int erpret this result as normal/abnormal . [facility] [place]ZuvjtdwVMHSACANOT7985-68-11 09:53:13 Test Item Value Reference Range Interpretation Comments Atypical Lymphs (test code = Atypical 0.0 Lymphs) [place] 391170-12-06 09:53:13 Test Item Value Reference Range Interpretation Comments RBC Morph (test code = Normal (09/05/20 3:53 RBC Morph) AM) [place] [address]-12-06 09:53:13 Test Item Value Reference Range Interpretation Comments Plt Morph (test code = Normal (09/05/20 3:53 Plt Morph) AM) [facility]2020-12-06 09:53:13 Test Item Value Reference Range Interpretation Comments Sodium Lvl (test code = Sodium Lvl) 140 135-145 [place] 468410-12-06 09:53:13 Test Item Value Reference Range Interpretation Comments Potassium Lvl (test code = Potassium 3.5 3.5-5.1 Lvl) [place] 468410-12-06 09:53:13 Test Item Value Reference Range Interpretation Comments Chloride Lvl (test code = Chloride Lvl) 106 95-109 [address]12-06 09:53:13 Test Item Value Reference Range Interpretation Comments CO2 (test code = CO2) 29 24-32 [address]12-06 09:53:13 Test Item Value Reference Range Interpretation Comments Calcium Lvl (test code = Calcium Lvl) 8.3 8.5-10.[address]12-06 09:53:13 Test Item Value Reference Range Interpretation Comments AGAP (test code = AGAP) 8.5 10.0-20.0 [address]12-06 09:53:13 Test Item Value Reference Range Interpretation Comments eGFR (test code = eGFR) 33 [place] 391170-12-06 09:53:13 Test Item Value Reference Range Interpretation Comments WBC (test code = WBC) 8.7 3.7-10.4 [place] [address]-12-06 09:53:13 Test Item Value Reference Range Interpretation Comments RBC (test code = RBC) 3.96 4.20-5.40 [place] [address]-12-06 09:53:13 Test Item Value Reference Range Interpretation Comments Hgb (test code = Hgb) 10.7 12.0-16.0 [place] [address]-12-06 09:53:13 Test Item Value Reference Range Interpretation Comments Hct (test code = Hct) 32.8 36.0-48.0 [address]12-06 09:53:13 Test Item Value Reference Range Interpretation Comments MCV (test code = MCV) 83.0 80.0-98.0 [place] [address]-12-06 09:53:13 Test Item Value Reference Range Interpretation Comments MCH (test code = MCH) 26.9 pg 27.0-31.0 [place] [address]-12-06 09:53:13 Test Item Value Reference Range Interpretation Comments MCHC (test code = MCHC) 32.4 32.0-36.0 [address]12-06 09:53:13 Test Item Value Reference Range Interpretation Comments RDW (test code = RDW) 16.5 11.5-14.5 [place] [address]-12-06 09:53:13 Test Item Value Reference Range Interpretation Comments Platelet (test code = Platelet) 157 133-450 [place] [address]-12-06 09:53:13 Test Item Value Reference Range Interpretation Comments MPV (test code = MPV) 7.5 7.4-10.4 [place] [address]-12-06 09:53:13 Test Item Value Reference Range Interpretation Comments Neutrophils # (test code = Neutrophils 7.2 1.5-8.1 #) [place] [address]-12-06 09:53:13 Test Item Value Reference Range Interpretation Comments Lymphocytes # (test code = Lymphocytes 0.9 1.0-5.5 #) [facility] [place]KcpkohyVJTPAWGZCI0305-25-13 09:53:13 Test Item Value Reference Range Interpretation Comments Monocytes # (test code 0.5 See_Comment [Aut omated message] The = Monocytes #) system which generated this result tra nsmitted reference range : <=0.8. The reference r christiano was not used to int erpret this result as normal/abnormal . [facility] [place]AllenEjkmglwQNJNPQEMZV2061-72-93 09:53:13 Test Item Value Reference Range Interpretation Comments Basophils # (test code 0.1 See_Comment [Aut omated message] The = Basophils #) system which generated this result tra nsmitted reference range : <=0.2. The reference r christiano was not used to int erpret this result as normal/abnormal . [place] 391170-12-06 09:53:13 Test Item Value Reference Range Interpretation Comments Segs (test code = Segs) 83.0 45.0-75.0 [place] [address]-12-06 09:53:13 Test Item Value Reference Range Interpretation Comments Bands (test code = 0.0 See_Comment [Automat ed message] The Bands) system which ge nerated this result transmit sheba reference range : <=11.0. The reference r christiano was not used to interpr et this result as edy l/abnormal. [place] [address]-12-06 09:53:13 Test Item Value Reference Range Interpretation Comments Lymphocytes (test code = Lymphocytes) 10.0 20.0-40.0 [place] [address]-12-06 09:53:13 Test Item Value Reference Range Interpretation Comments Monocytes (test code = Monocytes) 6.0 2.0-12.0 [place] [address]-12-06 09:53:13 Test Item Value Reference Range Interpretation Comments Basophils (test code = 1.0 See_Comment [Aut omated message] The Basophils) system which ge nerated this result tra nsmitted reference range : <=1.0. The reference r christiano was not used to int erpret this result as normal/abnormal . [place] 391170-12-06 09:53:13 Test Item Value Reference Range Interpretation Comments Atypical Lymphs (test code = Atypical 0.0 Lymphs) [place] 391170-12-06 09:53:13 Test Item Value Reference Range Interpretation Comments RBC Morph (test code = Normal (09/05/20 3:53 RBC Morph) AM) [place] [address]-12-06 09:53:13 Test Item Value Reference Range Interpretation Comments Plt Morph (test code = Normal (09/05/20 3:53 Plt Morph) AM) [facility]2020-12-06 09:53:13 Test Item Value Reference Range Interpretation Comments Magnesium Lvl (test code = Magnesium 2.2 1.8-2.4 Lvl) [place] 468410-12-06 09:53:13 Test Item Value Reference Range Interpretation Comments Phosphorus (test code = Phosphorus) 2.9 2.5-4.5 [place] 468410-12-06 09:53:13 Test Item Value Reference Range Interpretation Comments Glucose Lvl (test code = Glucose Lvl) 102 70-99 [place] [address]-12-06 09:53:13 Test Item Value Reference Range Interpretation Comments BUN (test code = BUN) 17 7-22 [place] 468410-12-06 09:53:13 Test Item Value Reference Range Interpretation Comments Creatinine Lvl (test code = Creatinine 1.51 0.50-1.40 Lvl) [place] 468410-12-06 09:53:13 Test Item Value Reference Range Interpretation Comments Sodium Lvl (test code = Sodium Lvl) 140 135-145 [address]12-06 09:53:13 Test Item Value Reference Range Interpretation Comments Potassium Lvl (test code = Potassium 3.5 3.5-5.1 Lvl) [place] 468410-12-06 09:53:13 Test Item Value Reference Range Interpretation Comments Chloride Lvl (test code = Chloride Lvl) 106 95-109 [address]12-06 09:53:13 Test Item Value Reference Range Interpretation Comments CO2 (test code = CO2) 29 24-32 [address]12-06 09:53:13 Test Item Value Reference Range Interpretation Comments Calcium Lvl (test code = Calcium Lvl) 8.3 8.5-10.5 [place] [address]-12-06 09:53:13 Test Item Value Reference Range Interpretation Comments AGAP (test code = AGAP) 8.5 10.0-20.0 [place] [address]-12-06 09:53:13 Test Item Value Reference Range Interpretation Comments eGFR (test code = eGFR) 33 [place] [address]-12-06 09:53:13 Test Item Value Reference Range Interpretation Comments WBC (test code = WBC) 8.7 3.7-10.4 [place] [address]-12-06 09:53:13 Test Item Value Reference Range Interpretation Comments RBC (test code = RBC) 3.96 4.20-5.40 [place] [address]-12-06 09:53:13 Test Item Value Reference Range Interpretation Comments Hgb (test code = Hgb) 10.7 12.0-16.0 [place] [address]-12-06 09:53:13 Test Item Value Reference Range Interpretation Comments Hct (test code = Hct) 32.8 36.0-48.0 [address]12-06 09:53:13 Test Item Value Reference Range Interpretation Comments MCV (test code = MCV) 83.0 80.0-98.0 [address]12-06 09:53:13 Test Item Value Reference Range Interpretation Comments MCH (test code = MCH) 26.9 pg 27.0-31.0 [place] [address]-12-06 09:53:13 Test Item Value Reference Range Interpretation Comments MCHC (test code = MCHC) 32.4 32.0-36.0 [place] [address]-12-06 09:53:13 Test Item Value Reference Range Interpretation Comments RDW (test code = RDW) 16.5 11.5-14.5 [place] [address]-12-06 09:53:13 Test Item Value Reference Range Interpretation Comments Platelet (test code = Platelet) 157 133-450 [place] [address]-12-06 09:53:13 Test Item Value Reference Range Interpretation Comments MPV (test code = MPV) 7.5 7.4-10.4 [place] [address]-12-06 09:53:13 Test Item Value Reference Range Interpretation Comments Neutrophils # (test code = Neutrophils 7.2 1.5-8.1 #) [place] [address]-12-06 09:53:13 Test Item Value Reference Range Interpretation Comments Lymphocytes # (test code = Lymphocytes 0.9 1.0-5.5 #) [place] [address]-12-06 09:53:13 Test Item Value Reference Range Interpretation Comments Monocytes # (test code 0.5 See_Comment [Aut omated message] The = Monocytes #) system which generated this result tra nsmitted reference range : <=0.8. The reference r christiano was not used to int erpret this result as normal/abnormal . [place] [address]-12-06 09:53:13 Test Item Value Reference Range Interpretation Comments Basophils # (test code 0.1 See_Comment [Aut omated message] The = Basophils #) system which generated this result tra nsmitted reference range : <=0.2. The reference r christiano was not used to int erpret this result as normal/abnormal . [place] [address]-12-06 09:53:13 Test Item Value Reference Range Interpretation Comments Segs (test code = Segs) 83.0 45.0-75.0 [place] [address]-12-06 09:53:13 Test Item Value Reference Range Interpretation Comments Bands (test code = 0.0 See_Comment [Automat ed message] The Bands) system which ge nerated this result transmit sheba reference range : <=11.0. The reference r christiano was not used to interpr et this result as edy l/abnormal. [place] 391170-12-06 09:53:13 Test Item Value Reference Range Interpretation Comments Lymphocytes (test code = Lymphocytes) 10.0 20.0-40.0 [place] 391170-12-06 09:53:13 Test Item Value Reference Range Interpretation Comments Monocytes (test code = Monocytes) 6.0 2.0-12.0 [place] 391170-12-06 09:53:13 Test Item Value Reference Range Interpretation Comments Basophils (test code = 1.0 See_Comment [Aut omated message] The Basophils) system which ge nerated this result tra nsmitted reference range : <=1.0. The reference r christiano was not used to int erpret this result as normal/abnormal . [place] 391170-12-06 09:53:13 Test Item Value Reference Range Interpretation Comments Atypical Lymphs (test code = Atypical 0.0 Lymphs) [place] 391170-12-06 09:53:13 Test Item Value Reference Range Interpretation Comments RBC Morph (test code = Normal (09/05/20 3:53 RBC Morph) AM) [place] [address]-12-06 09:53:13 Test Item Value Reference Range Interpretation Comments Plt Morph (test code = Normal (09/05/20 3:53 Plt Morph) AM) [place] 468410-12-06 09:53:13 Test Item Value Reference Range Interpretation Comments Magnesium Lvl (test code = Magnesium 2.2 1.8-2.4 Lvl) [place] 468410-12-06 09:53:13 Test Item Value Reference Range Interpretation Comments Phosphorus (test code = Phosphorus) 2.9 2.5-4.5 [place] [address]-12-06 09:53:13 Test Item Value Reference Range Interpretation Comments Glucose Lvl (test code = Glucose Lvl) 102 70-99 [place] 468410-12-06 09:53:13 Test Item Value Reference Range Interpretation Comments BUN (test code = BUN) 17 7-22 [place] 468410-12-06 09:53:13 Test Item Value Reference Range Interpretation Comments Creatinine Lvl (test code = Creatinine 1.51 0.50-1.40 Lvl) [place] [address]-12-06 09:53:13 Test Item Value Reference Range Interpretation Comments Sodium Lvl (test code = Sodium Lvl) 140 135-145 [address]12-06 09:53:13 Test Item Value Reference Range Interpretation Comments Potassium Lvl (test code = Potassium 3.5 3.5-5.1 Lvl) [address]12-06 09:53:13 Test Item Value Reference Range Interpretation Comments Chloride Lvl (test code = Chloride Lvl) 106 95-109 [place] [address]-12-06 09:53:13 Test Item Value Reference Range Interpretation Comments CO2 (test code = CO2) 29 24-32 [address]12-06 09:53:13 Test Item Value Reference Range Interpretation Comments Calcium Lvl (test code = Calcium Lvl) 8.3 8.5-10.5 [address]12-06 09:53:13 Test Item Value Reference Range Interpretation Comments AGAP (test code = AGAP) 8.5 10.0-20.0 [address]12-06 09:53:13 Test Item Value Reference Range Interpretation Comments eGFR (test code = eGFR) 33 [place] [address]-12-06 09:53:13 Test Item Value Reference Range Interpretation Comments WBC (test code = WBC) 8.7 3.7-10.4 [place] [address]-12-06 09:53:13 Test Item Value Reference Range Interpretation Comments RBC (test code = RBC) 3.96 4.20-5.40 [place] [address]-12-06 09:53:13 Test Item Value Reference Range Interpretation Comments Hgb (test code = Hgb) 10.7 12.0-16.0 [address]12-06 09:53:13 Test Item Value Reference Range Interpretation Comments Hct (test code = Hct) 32.8 36.0-48.0 [address]12-06 09:53:13 Test Item Value Reference Range Interpretation Comments MCV (test code = MCV) 83.0 80.0-98.0 [address]12-06 09:53:13 Test Item Value Reference Range Interpretation Comments MCH (test code = MCH) 26.9 pg 27.0-31.0 [facility] [place]NplyfbkMSZDSFPIQC5372-10-24 09:53:13 Test Item Value Reference Range Interpretation Comments MCHC (test code = MCHC) 32.4 32.0-36.0 [facility] [place]AllenAoxtuelBOEFVDAQXW2586-88-12 09:53:13 Test Item Value Reference Range Interpretation Comments RDW (test code = RDW) 16.5 11.5-14.5 [place] [address]-12-06 09:53:13 Test Item Value Reference Range Interpretation Comments Platelet (test code = Platelet) 157 133-450 [place] [address]-12-06 09:53:13 Test Item Value Reference Range Interpretation Comments MPV (test code = MPV) 7.5 7.4-10.4 [place] 391170-12-06 09:53:13 Test Item Value Reference Range Interpretation Comments Neutrophils # (test code = Neutrophils 7.2 1.5-8.1 #) [facility] [place]AllenRjkfprwAGKKSDMMZE5401-15-73 09:53:13 Test Item Value Reference Range Interpretation Comments Lymphocytes # (test code = Lymphocytes 0.9 1.0-5.5 #) [facility] [place]TxcfvgzVMFZGJNTNX1002-74-71 09:53:13 Test Item Value Reference Range Interpretation Comments Monocytes # (test code 0.5 See_Comment [Aut omated message] The = Monocytes #) system which generated this result tra nsmitted reference range : <=0.8. The reference r christiano was not used to int erpret this result as normal/abnormal . [facility] [place]AllenVypocqsAEUCCMDAOK6383-15-81 09:53:13 Test Item Value Reference Range Interpretation Comments Basophils # (test code 0.1 See_Comment [Aut omated message] The = Basophils #) system which generated this result tra nsmitted reference range : <=0.2. The reference r christiano was not used to int erpret this result as normal/abnormal . [place] 391170-12-06 09:53:13 Test Item Value Reference Range Interpretation Comments Segs (test code = Segs) 83.0 45.0-75.0 [place] [address]-12-06 09:53:13 Test Item Value Reference Range Interpretation Comments Bands (test code = 0.0 See_Comment [Automat ed message] The Bands) system which ge nerated this result transmit sheba reference range : <=11.0. The reference r christiano was not used to interpr et this result as edy l/abnormal. [place] [address]-12-06 09:53:13 Test Item Value Reference Range Interpretation Comments Lymphocytes (test code = Lymphocytes) 10.0 20.0-40.0 [place] [address]-12-06 09:53:13 Test Item Value Reference Range Interpretation Comments Monocytes (test code = Monocytes) 6.0 2.0-12.0 [address]12-06 09:53:13 Test Item Value Reference Range Interpretation Comments Basophils (test code = 1.0 See_Comment [Aut omated message] The Basophils) system which ge nerated this result tra nsmitted reference range : <=1.0. The reference r christiano was not used to int erpret this result as normal/abnormal . [place] [address]-12-06 09:53:13 Test Item Value Reference Range Interpretation Comments Atypical Lymphs (test code = Atypical 0.0 Lymphs) [place] [address]-12-06 09:53:13 Test Item Value Reference Range Interpretation Comments RBC Morph (test code = Normal (09/05/20 3:53 RBC Morph) AM) [place] [address]-12-06 09:53:13 Test Item Value Reference Range Interpretation Comments Plt Morph (test code = Normal (09/05/20 3:53 Plt Morph) AM) [place] 468410-12-06 09:53:13 Test Item Value Reference Range Interpretation Comments Magnesium Lvl (test code = Magnesium 2.2 1.8-2.4 Lvl) [place] [address]-12-06 09:53:13 Test Item Value Reference Range Interpretation Comments Phosphorus (test code = Phosphorus) 2.9 2.5-4.5 [place] [address]-12-06 09:53:13 Test Item Value Reference Range Interpretation Comments Glucose Lvl (test code = Glucose Lvl) 102 70-99 [place] [address]-12-06 09:53:13 Test Item Value Reference Range Interpretation Comments BUN (test code = BUN) 17 7-22 [place] [address]-12-06 09:53:13 Test Item Value Reference Range Interpretation Comments Creatinine Lvl (test code = Creatinine 1.51 0.50-1.40 Lvl) [address]12-06 09:53:13 Test Item Value Reference Range Interpretation Comments Sodium Lvl (test code = Sodium Lvl) 140 135-[address]12-06 09:53:13 Test Item Value Reference Range Interpretation Comments Potassium Lvl (test code = Potassium 3.5 3.5-5.1 Lvl) [place] [address]-12-06 09:53:13 Test Item Value Reference Range Interpretation Comments Chloride Lvl (test code = Chloride Lvl) 106 95-109 [address]12-06 09:53:13 Test Item Value Reference Range Interpretation Comments CO2 (test code = CO2) 29 24-32 [place] [address]-12-06 09:53:13 Test Item Value Reference Range Interpretation Comments Calcium Lvl (test code = Calcium Lvl) 8.3 8.5-10.5 [place] [address]-12-06 09:53:13 Test Item Value Reference Range Interpretation Comments AGAP (test code = AGAP) 8.5 10.0-20.0 [place] [address]-12-06 09:53:13 Test Item Value Reference Range Interpretation Comments eGFR (test code = eGFR) 33 [place] [address]-12-06 09:53:13 Test Item Value Reference Range Interpretation Comments WBC (test code = WBC) 8.7 3.7-10.4 [place] [address]-12-06 09:53:13 Test Item Value Reference Range Interpretation Comments RBC (test code = RBC) 3.96 4.20-5.40 [place] [address]-12-06 09:53:13 Test Item Value Reference Range Interpretation Comments Hgb (test code = Hgb) 10.7 12.0-16.0 [place] [address]-12-06 09:53:13 Test Item Value Reference Range Interpretation Comments Hct (test code = Hct) 32.8 36.0-48.0 [place] [address]-12-06 09:53:13 Test Item Value Reference Range Interpretation Comments Magnesium Lvl (test code = Magnesium 2.2 1.8-2.4 Lvl) [place] [address]-12-06 09:53:13 Test Item Value Reference Range Interpretation Comments Phosphorus (test code = Phosphorus) 2.9 2.5-4.5 [place] [address]-12-06 09:53:13 Test Item Value Reference Range Interpretation Comments Glucose Lvl (test code = Glucose Lvl) 102 70-99 [place] [address]-12-06 09:53:13 Test Item Value Reference Range Interpretation Comments BUN (test code = BUN) 17 7-22 [place] [address]-12-06 09:53:13 Test Item Value Reference Range Interpretation Comments Creatinine Lvl (test code = Creatinine 1.51 0.50-1.40 Lvl) [place] [address]-12-06 09:53:13 Test Item Value Reference Range Interpretation Comments MCV (test code = MCV) 83.0 80.0-98.0 [address]12-06 09:53:13 Test Item Value Reference Range Interpretation Comments Sodium Lvl (test code = Sodium Lvl) 140 135-145 [place] [address]-12-06 09:53:13 Test Item Value Reference Range Interpretation Comments Potassium Lvl (test code = Potassium 3.5 3.5-5.1 Lvl) [place] [address]-12-06 09:53:13 Test Item Value Reference Range Interpretation Comments Chloride Lvl (test code = Chloride Lvl) 106 95-109 [place] [address]-12-06 09:53:13 Test Item Value Reference Range Interpretation Comments CO2 (test code = CO2) 29 24-32 [place] [address]-12-06 09:53:13 Test Item Value Reference Range Interpretation Comments Calcium Lvl (test code = Calcium Lvl) 8.3 8.5-10.5 [place] [address]-12-06 09:53:13 Test Item Value Reference Range Interpretation Comments AGAP (test code = AGAP) 8.5 10.0-20.0 [place] [address]-12-06 09:53:13 Test Item Value Reference Range Interpretation Comments eGFR (test code = eGFR) 33 [place] [address]-12-06 09:53:13 Test Item Value Reference Range Interpretation Comments WBC (test code = WBC) 8.7 3.7-10.4 [facility]2419[facility]-69 09:53:13 Test Item Value Reference Range Interpretation Comments RBC (test code = RBC) 3.96 4.20-5.40 [facility]AllenFvmtwyfKISMQOSLBC9970-23-66 09:53:13 Test Item Value Reference Range Interpretation Comments Hgb (test code = Hgb) 10.7 12.0-16.0 [facility]AllenZivmmtrWQAPOIQHAE8517-71-44 09:53:13 Test Item Value Reference Range Interpretation Comments MCH (test code = MCH) 26.9 pg 27.0-31.0 [facility]AllenPckgcllPOFIWEEJGU1144-39-46 09:53:13 Test Item Value Reference Range Interpretation Comments Hct (test code = Hct) 32.8 36.0-48.0 [facility]AllenCerwltvYGUPFKOHVM4640-44-62 09:53:13 Test Item Value Reference Range Interpretation Comments MCV (test code = MCV) 83.0 80.0-98.0 [place] 391170-12-06 09:53:13 Test Item Value Reference Range Interpretation Comments MCH (test code = MCH) 26.9 pg 27.0-31.0 [facility]AllenMvmukicHPCPICQIGW8318-03-76 09:53:13 Test Item Value Reference Range Interpretation Comments MCHC (test code = MCHC) 32.4 32.0-36.0 [facility]AllenUirxqjhIFQGGPNCNI5092-15-38 09:53:13 Test Item Value Reference Range Interpretation Comments RDW (test code = RDW) 16.5 11.5-14.5 [facility]AllenNvqpgvtRXSDMXCPIO3564-47-54 09:53:13 Test Item Value Reference Range Interpretation Comments Platelet (test code = Platelet) 157 133-450 [place] 391170-12-06 09:53:13 Test Item Value Reference Range Interpretation Comments MPV (test code = MPV) 7.5 7.4-10.4 [place] [address]-12-06 09:53:13 Test Item Value Reference Range Interpretation Comments Neutrophils # (test code = Neutrophils 7.2 1.5-8.1 #) [facility]AllenEikdaayMFYWYAUVZQ9717-64-83 09:53:13 Test Item Value Reference Range Interpretation Comments Lymphocytes # (test code = Lymphocytes 0.9 1.0-5.5 #) [place] [address]-12-06 09:53:13 Test Item Value Reference Range Interpretation Comments Monocytes # (test code 0.5 See_Comment [Aut omated message] The = Monocytes #) system which generated this result tra nsmitted reference range : <=0.8. The reference r christiano was not used to int erpret this result as normal/abnormal . [place] [address]-12-06 09:53:13 Test Item Value Reference Range Interpretation Comments MCHC (test code = MCHC) 32.4 32.0-36.0 [place] [address]-12-06 09:53:13 Test Item Value Reference Range Interpretation Comments Basophils # (test code 0.1 See_Comment [Aut omated message] The = Basophils #) system which generated this result tra nsmitted reference range : <=0.2. The reference r christiano was not used to int erpret this result as normal/abnormal . [place] 391170-12-06 09:53:13 Test Item Value Reference Range Interpretation Comments Segs (test code = Segs) 83.0 45.0-75.0 [place] [address]-12-06 09:53:13 Test Item Value Reference Range Interpretation Comments Bands (test code = 0.0 See_Comment [Automat ed message] The Bands) system which ge nerated this result transmit sheba reference range : <=11.0. The reference r christiano was not used to interpr et this result as edy l/abnormal. [facility] McAllenNdedozzVORMTGTUTR7886-16-95 09:53:13 Test Item Value Reference Range Interpretation Comments Lymphocytes (test code = Lymphocytes) 10.0 20.0-40.0 [place] [address]-12-06 09:53:13 Test Item Value Reference Range Interpretation Comments Monocytes (test code = Monocytes) 6.0 2.0-12.0 [place] [address]-12-06 09:53:13 Test Item Value Reference Range Interpretation Comments Basophils (test code = 1.0 See_Comment [Aut omated message] The Basophils) system which ge nerated this result tra nsmitted reference range : <=1.0. The reference r christiano was not used to int erpret this result as normal/abnormal . [place] [address]-12-06 09:53:13 Test Item Value Reference Range Interpretation Comments Atypical Lymphs (test code = Atypical 0.0 Lymphs) [place] [address]-12-06 09:53:13 Test Item Value Reference Range Interpretation Comments RBC Morph (test code = Normal (09/05/20 3:53 RBC Morph) AM) [place] [address]-12-06 09:53:13 Test Item Value Reference Range Interpretation Comments Plt Morph (test code = Normal (09/05/20 3:53 Plt Morph) AM) [place] [address]-12-06 09:53:13 Test Item Value Reference Range Interpretation Comments RDW (test code = RDW) 16.5 11.5-14.5 [place] [address]-12-06 09:53:13 Test Item Value Reference Range Interpretation Comments Platelet (test code = Platelet) 157 133-450 [address]12-06 09:53:13 Test Item Value Reference Range Interpretation Comments MPV (test code = MPV) 7.5 7.4-10.4 [place] [address]-12-06 09:53:13 Test Item Value Reference Range Interpretation Comments Neutrophils # (test code = Neutrophils 7.2 1.5-8.1 #) [facility]AllenRjbkvntDZAQXIDOEV9423-10-54 09:53:13 Test Item Value Reference Range Interpretation Comments Lymphocytes # (test code = Lymphocytes 0.9 1.0-5.5 #) [facility]AllenGkdhhzfCJJYSAJTXI0692-73-67 09:53:13 Test Item Value Reference Range Interpretation Comments Monocytes # (test code 0.5 See_Comment [Aut omated message] The = Monocytes #) system which generated this result tra nsmitted reference range : <=0.8. The reference r christiano was not used to int erpret this result as normal/abnormal . [place] [address]-12-06 09:53:13 Test Item Value Reference Range Interpretation Comments Basophils # (test code 0.1 See_Comment [Aut omated message] The = Basophils #) system which generated this result tra nsmitted reference range : <=0.2. The reference r christiano was not used to int erpret this result as normal/abnormal . [place] [address]-12-06 09:53:13 Test Item Value Reference Range Interpretation Comments Segs (test code = Segs) 83.0 45.0-75.0 [place] [address]-12-06 09:53:13 Test Item Value Reference Range Interpretation Comments Bands (test code = 0.0 See_Comment [Automat ed message] The Bands) system which ge nerated this result transmit sheba reference range : <=11.0. The reference r christiano was not used to interpr et this result as edy l/abnormal. [place] [address]1170-12-06 09:53:13 Test Item Value Reference Range Interpretation Comments Lymphocytes (test code = Lymphocytes) 10.0 20.0-40.0 [place] [address]-12-06 09:53:13 Test Item Value Reference Range Interpretation Comments Monocytes (test code = Monocytes) 6.0 2.0-12.0 [place] [address]-12-06 09:53:13 Test Item Value Reference Range Interpretation Comments Basophils (test code = 1.0 See_Comment [Aut omated message] The Basophils) system which ge nerated this result tra nsmitted reference range : <=1.0. The reference r christiano was not used to int erpret this result as normal/abnormal . [place] 391170-12-06 09:53:13 Test Item Value Reference Range Interpretation Comments Atypical Lymphs (test code = Atypical 0.0 Lymphs) [place] [address]-12-06 09:53:13 Test Item Value Reference Range Interpretation Comments RBC Morph (test code = Normal (09/05/20 3:53 RBC Morph) AM) [place] [address]-12-06 09:53:13 Test Item Value Reference Range Interpretation Comments Plt Morph (test code = Normal (09/05/20 3:53 Plt Morph) AM) [facility]2020-12-06 09:53:13 Test Item Value Reference Range Interpretation Comments Magnesium Lvl (test code = Magnesium 2.2 1.8-2.4 Lvl) [facility]2020-12-06 09:53:13 Test Item Value Reference Range Interpretation Comments Phosphorus (test code = Phosphorus) 2.9 2.5-4.5 [place] 468410-12-06 09:53:13 Test Item Value Reference Range Interpretation Comments Glucose Lvl (test code = Glucose Lvl) 102 70-99 [place] [address]-12-06 09:53:13 Test Item Value Reference Range Interpretation Comments BUN (test code = BUN) 17 7-22 [place] [address]-12-06 09:53:13 Test Item Value Reference Range Interpretation Comments Creatinine Lvl (test code = Creatinine 1.51 0.50-1.40 Lvl) [place] [address]-12-06 09:53:13 Test Item Value Reference Range Interpretation Comments Sodium Lvl (test code = Sodium Lvl) 140 135-145 [place] [address]-12-06 09:53:13 Test Item Value Reference Range Interpretation Comments Potassium Lvl (test code = Potassium 3.5 3.5-5.1 Lvl) [place] [address]-12-06 09:53:13 Test Item Value Reference Range Interpretation Comments Chloride Lvl (test code = Chloride Lvl) 106 95-109 [place] [address]-12-06 09:53:13 Test Item Value Reference Range Interpretation Comments CO2 (test code = CO2) 29 24-32 [place] [address]-12-06 09:53:13 Test Item Value Reference Range Interpretation Comments Calcium Lvl (test code = Calcium Lvl) 8.3 8.5-10.5 [place] 468410-12-06 09:53:13 Test Item Value Reference Range Interpretation Comments AGAP (test code = AGAP) 8.5 10.0-20.0 [place] [address]-12-06 09:53:13 Test Item Value Reference Range Interpretation Comments eGFR (test code = eGFR) 33 [place] [address]-12-06 09:53:13 Test Item Value Reference Range Interpretation Comments WBC (test code = WBC) 8.7 3.7-10.4 [address]12-06 09:53:13 Test Item Value Reference Range Interpretation Comments RBC (test code = RBC) 3.96 4.20-5.40 [place] [address]-12-06 09:53:13 Test Item Value Reference Range Interpretation Comments Hgb (test code = Hgb) 10.7 12.0-16.0 [address]12-06 09:53:13 Test Item Value Reference Range Interpretation Comments Hct (test code = Hct) 32.8 36.0-48.0 [place] [address]-12-06 09:53:13 Test Item Value Reference Range Interpretation Comments MCV (test code = MCV) 83.0 80.0-98.0 [place] [address]-12-06 09:53:13 Test Item Value Reference Range Interpretation Comments MCH (test code = MCH) 26.9 pg 27.0-31.0 [place] [address]-12-06 09:53:13 Test Item Value Reference Range Interpretation Comments MCHC (test code = MCHC) 32.4 32.0-36.0 [address]12-06 09:53:13 Test Item Value Reference Range Interpretation Comments RDW (test code = RDW) 16.5 11.5-14.5 [place] [address]-12-06 09:53:13 Test Item Value Reference Range Interpretation Comments Platelet (test code = Platelet) 157 133-450 [place] [address]-12-06 09:53:13 Test Item Value Reference Range Interpretation Comments MPV (test code = MPV) 7.5 7.4-10.4 [place] [address]-12-06 09:53:13 Test Item Value Reference Range Interpretation Comments Neutrophils # (test code = Neutrophils 7.2 1.5-8.1 #) [place] [address]-12-06 09:53:13 Test Item Value Reference Range Interpretation Comments Lymphocytes # (test code = Lymphocytes 0.9 1.0-5.5 #) [place] [address]-12-06 09:53:13 Test Item Value Reference Range Interpretation Comments Monocytes # (test code 0.5 See_Comment [Aut omated message] The = Monocytes #) system which generated this result tra nsmitted reference range : <=0.8. The reference r christiano was not used to int erpret this result as normal/abnormal . [place] [address]-12-06 09:53:13 Test Item Value Reference Range Interpretation Comments Basophils # (test code 0.1 See_Comment [Aut omated message] The = Basophils #) system which generated this result tra nsmitted reference range : <=0.2. The reference r christiano was not used to int erpret this result as normal/abnormal . [facility]AllenAndnwtiPACPVSUMHF9596-01-10 09:53:13 Test Item Value Reference Range Interpretation Comments Segs (test code = Segs) 83.0 45.0-75.0 [facility]AllenEnzupvyNYQPNHNUFP9283-05-98 09:53:13 Test Item Value Reference Range Interpretation Comments Bands (test code = 0.0 See_Comment [Automat ed message] The Bands) system which ge nerated this result transmit sheba reference range : <=11.0. The reference r christiano was not used to interpr et this result as edy l/abnormal. [facility]AllenBbdmafmCKUENVMUBE8239-27-87 09:53:13 Test Item Value Reference Range Interpretation Comments Lymphocytes (test code = Lymphocytes) 10.0 20.0-40.0 [facility]AllenUndkrevDKLLQUEIXL7702-45-56 09:53:13 Test Item Value Reference Range Interpretation Comments Monocytes (test code = Monocytes) 6.0 2.0-12.0 [facility]AllenQwmbsrfCHMZYGDKDG6460-98-33 09:53:13 Test Item Value Reference Range Interpretation Comments Basophils (test code = 1.0 See_Comment [Aut omated message] The Basophils) system which ge nerated this result tra nsmitted reference range : <=1.0. The reference r christiano was not used to int erpret this result as normal/abnormal . [facility] McAllenFgsvslrDKTPPNKCUI4879-67-43 09:53:13 Test Item Value Reference Range Interpretation Comments Atypical Lymphs (test code = Atypical 0.0 Lymphs) [place] [address]-12-06 09:53:13 Test Item Value Reference Range Interpretation Comments RBC Morph (test code = Normal (09/05/20 3:53 RBC Morph) AM) [place] [address]-12-06 09:53:13 Test Item Value Reference Range Interpretation Comments Plt Morph (test code = Normal (09/05/20 3:53 Plt Morph) AM) [facility]2020-12-06 09:53:13 Test Item Value Reference Range Interpretation Comments Magnesium Lvl (test code = Magnesium 2.2 1.8-2.4 Lvl) [facility]2020-12-06 09:53:13 Test Item Value Reference Range Interpretation Comments Phosphorus (test code = Phosphorus) 2.9 2.5-4.5 [address]12-06 09:53:13 Test Item Value Reference Range Interpretation Comments Glucose Lvl (test code = Glucose Lvl) 102 70-99 [place] [address]-12-06 09:53:13 Test Item Value Reference Range Interpretation Comments BUN (test code = BUN) 17 7-22 [address]12-06 09:53:13 Test Item Value Reference Range Interpretation Comments Creatinine Lvl (test code = Creatinine 1.51 0.50-1.40 Lvl) [place] [address]-12-06 09:53:13 Test Item Value Reference Range Interpretation Comments Sodium Lvl (test code = Sodium Lvl) 140 135-145 [address]12-06 09:53:13 Test Item Value Reference Range Interpretation Comments Potassium Lvl (test code = Potassium 3.5 3.5-5.1 Lvl) [address]12-06 09:53:13 Test Item Value Reference Range Interpretation Comments Chloride Lvl (test code = Chloride Lvl) 106 95-109 [place] [address]-12-06 09:53:13 Test Item Value Reference Range Interpretation Comments CO2 (test code = CO2) 29 24-32 [place] [address]-12-06 09:53:13 Test Item Value Reference Range Interpretation Comments Calcium Lvl (test code = Calcium Lvl) 8.3 8.5-10.5 [place] [address]-12-06 09:53:13 Test Item Value Reference Range Interpretation Comments AGAP (test code = AGAP) 8.5 10.0-20.0 [place] [address]-12-06 09:53:13 Test Item Value Reference Range Interpretation Comments eGFR (test code = eGFR) 33 [address]12-06 09:53:13 Test Item Value Reference Range Interpretation Comments WBC (test code = WBC) 8.7 3.7-10.4 [place] [address]-12-06 09:53:13 Test Item Value Reference Range Interpretation Comments RBC (test code = RBC) 3.96 4.20-5.40 [address]12-06 09:53:13 Test Item Value Reference Range Interpretation Comments Hgb (test code = Hgb) 10.7 12.0-16.0 [place] [address]-12-06 09:53:13 Test Item Value Reference Range Interpretation Comments Hct (test code = Hct) 32.8 36.0-48.0 [place] 391170-12-06 09:53:13 Test Item Value Reference Range Interpretation Comments MCV (test code = MCV) 83.0 80.0-98.0 [place] 391170-12-06 09:53:13 Test Item Value Reference Range Interpretation Comments MCH (test code = MCH) 26.9 pg 27.0-31.0 [place] [address]-12-06 09:53:13 Test Item Value Reference Range Interpretation Comments MCHC (test code = MCHC) 32.4 32.0-36.0 [place] 391170-12-06 09:53:13 Test Item Value Reference Range Interpretation Comments RDW (test code = RDW) 16.5 11.5-14.5 [place] [address]-12-06 09:53:13 Test Item Value Reference Range Interpretation Comments Platelet (test code = Platelet) 157 133-450 [place] [address]-12-06 09:53:13 Test Item Value Reference Range Interpretation Comments MPV (test code = MPV) 7.5 7.4-10.4 [place] [address]-12-06 09:53:13 Test Item Value Reference Range Interpretation Comments Neutrophils # (test code = Neutrophils 7.2 1.5-8.1 #) [place] [address]1170-12-06 09:53:13 Test Item Value Reference Range Interpretation Comments Lymphocytes # (test code = Lymphocytes 0.9 1.0-5.5 #) [place] [address]-12-06 09:53:13 Test Item Value Reference Range Interpretation Comments Monocytes # (test code 0.5 See_Comment [Aut omated message] The = Monocytes #) system which generated this result tra nsmitted reference range : <=0.8. The reference r christiano was not used to int erpret this result as normal/abnormal . [place] [address]-12-06 09:53:13 Test Item Value Reference Range Interpretation Comments Basophils # (test code 0.1 See_Comment [Aut omated message] The = Basophils #) system which generated this result tra nsmitted reference range : <=0.2. The reference r christiano was not used to int erpret this result as normal/abnormal . [facility]AllenJrihxqrWNXUHVYESK8765-52-64 09:53:13 Test Item Value Reference Range Interpretation Comments Segs (test code = Segs) 83.0 45.0-75.0 [place] [address]1170-12-06 09:53:13 Test Item Value Reference Range Interpretation Comments Bands (test code = 0.0 See_Comment [Automat ed message] The Bands) system which ge nerated this result transmit sheba reference range : <=11.0. The reference r christiano was not used to interpr et this result as edy l/abnormal. [facility]AllenGloljxjKJJYAZPQAJ6291-37-28 09:53:13 Test Item Value Reference Range Interpretation Comments Lymphocytes (test code = Lymphocytes) 10.0 20.0-40.0 [place] [address]1170-12-06 09:53:13 Test Item Value Reference Range Interpretation Comments Monocytes (test code = Monocytes) 6.0 2.0-12.0 [place] 391170-12-06 09:53:13 Test Item Value Reference Range Interpretation Comments Basophils (test code = 1.0 See_Comment [Aut omated message] The Basophils) system which ge nerated this result tra nsmitted reference range : <=1.0. The reference r christiano was not used to int erpret this result as normal/abnormal . [facility] McAllenRxubquoDCBYTPIXAW9418-74-26 09:53:13 Test Item Value Reference Range Interpretation Comments Atypical Lymphs (test code = Atypical 0.0 Lymphs) [place] 391170-12-06 09:53:13 Test Item Value Reference Range Interpretation Comments RBC Morph (test code = Normal (09/05/20 3:53 RBC Morph) AM) [place] 391170-12-06 09:53:13 Test Item Value Reference Range Interpretation Comments Plt Morph (test code = Normal (09/05/20 3:53 Plt Morph) AM) [facility]2020-12-06 09:53:13 Test Item Value Reference Range Interpretation Comments Magnesium Lvl (test code = Magnesium 2.2 1.8-2.4 Lvl) [place] 468410-12-06 09:53:13 Test Item Value Reference Range Interpretation Comments Phosphorus (test code = Phosphorus) 2.9 2.5-4.5 [place] [address]-12-06 09:53:13 Test Item Value Reference Range Interpretation Comments Glucose Lvl (test code = Glucose Lvl) 102 70-99 [place] [address]-12-06 09:53:13 Test Item Value Reference Range Interpretation Comments BUN (test code = BUN) 17 7-22 [place] [address]-12-06 09:53:13 Test Item Value Reference Range Interpretation Comments Creatinine Lvl (test code = Creatinine 1.51 0.50-1.40 Lvl) [place] [address]-12-06 09:53:13 Test Item Value Reference Range Interpretation Comments Sodium Lvl (test code = Sodium Lvl) 140 135-145 [place] [address]-12-06 09:53:13 Test Item Value Reference Range Interpretation Comments Potassium Lvl (test code = Potassium 3.5 3.5-5.1 Lvl) [place] [address]-12-06 09:53:13 Test Item Value Reference Range Interpretation Comments Chloride Lvl (test code = Chloride Lvl) 106 95-109 [place] 468410-12-06 09:53:13 Test Item Value Reference Range Interpretation Comments CO2 (test code = CO2) 29 24-32 [place] 468410-12-06 09:53:13 Test Item Value Reference Range Interpretation Comments Calcium Lvl (test code = Calcium Lvl) 8.3 8.5-10.5 [place] [address]-12-06 09:53:13 Test Item Value Reference Range Interpretation Comments AGAP (test code = AGAP) 8.5 10.0-20.0 [place] [address]-12-06 09:53:13 Test Item Value Reference Range Interpretation Comments eGFR (test code = eGFR) 33 [place] 391170-12-06 09:53:13 Test Item Value Reference Range Interpretation Comments WBC (test code = WBC) 8.7 3.7-10.4 [place] [address]-12-06 09:53:13 Test Item Value Reference Range Interpretation Comments RBC (test code = RBC) 3.96 4.20-5.40 [place] [address]-12-06 09:53:13 Test Item Value Reference Range Interpretation Comments Hgb (test code = Hgb) 10.7 12.0-16.0 [place] [address]-12-06 09:53:13 Test Item Value Reference Range Interpretation Comments Hct (test code = Hct) 32.8 36.0-48.0 [address]12-06 09:53:13 Test Item Value Reference Range Interpretation Comments MCV (test code = MCV) 83.0 80.0-98.0 [address]12-06 09:53:13 Test Item Value Reference Range Interpretation Comments MCH (test code = MCH) 26.9 pg 27.0-31.0 [place] [address]-12-06 09:53:13 Test Item Value Reference Range Interpretation Comments MCHC (test code = MCHC) 32.4 32.0-36.0 [place] [address]-12-06 09:53:13 Test Item Value Reference Range Interpretation Comments RDW (test code = RDW) 16.5 11.5-14.5 [address]12-06 09:53:13 Test Item Value Reference Range Interpretation Comments Platelet (test code = Platelet) 157 133-450 [place] [address]-12-06 09:53:13 Test Item Value Reference Range Interpretation Comments MPV (test code = MPV) 7.5 7.4-10.4 [place] [address]-12-06 09:53:13 Test Item Value Reference Range Interpretation Comments Neutrophils # (test code = Neutrophils 7.2 1.5-8.1 #) [place] [address]-12-06 09:53:13 Test Item Value Reference Range Interpretation Comments Lymphocytes # (test code = Lymphocytes 0.9 1.0-5.5 #) [place] [address]-12-06 09:53:13 Test Item Value Reference Range Interpretation Comments Monocytes # (test code 0.5 See_Comment [Aut omated message] The = Monocytes #) system which generated this result tra nsmitted reference range : <=0.8. The reference r christiano was not used to int erpret this result as normal/abnormal . [place] [address]-12-06 09:53:13 Test Item Value Reference Range Interpretation Comments Basophils # (test code 0.1 See_Comment [Aut omated message] The = Basophils #) system which generated this result tra nsmitted reference range : <=0.2. The reference r christiano was not used to int erpret this result as normal/abnormal . [facility]AllenEotnpolCOCACGCRCG6767-78-02 09:53:13 Test Item Value Reference Range Interpretation Comments Segs (test code = Segs) 83.0 45.0-75.0 [facility] McAllenCzbidbuRZKLWHMIDU3837-73-34 09:53:13 Test Item Value Reference Range Interpretation Comments Bands (test code = 0.0 See_Comment [Automat ed message] The Bands) system which ge nerated this result transmit sheba reference range : <=11.0. The reference r christiano was not used to interpr et this result as edy l/abnormal. [facility] McAllenOhremzfWQFSQFUSGE3008-45-13 09:53:13 Test Item Value Reference Range Interpretation Comments Lymphocytes (test code = Lymphocytes) 10.0 20.0-40.0 [facility] McAllenSqaekcmPTCFCLEQGH6063-60-16 09:53:13 Test Item Value Reference Range Interpretation Comments Monocytes (test code = Monocytes) 6.0 2.0-12.0 [facility] McAllenTthzlwxNZKLJFVSDX2676-30-22 09:53:13 Test Item Value Reference Range Interpretation Comments Basophils (test code = 1.0 See_Comment [Aut omated message] The Basophils) system which ge nerated this result tra nsmitted reference range : <=1.0. The reference r christiano was not used to int erpret this result as normal/abnormal . [facility] McAllenSouwrlqIRZNBZUNUS2159-22-97 09:53:13 Test Item Value Reference Range Interpretation Comments Atypical Lymphs (test code = Atypical 0.0 Lymphs) [facility] McAllenInzgvkdTHNMLQTTNE9160-05-06 09:53:13 Test Item Value Reference Range Interpretation Comments RBC Morph (test code = Normal (09/05/20 3:53 RBC Morph) AM) [facility] McAllenLzocdkcZAPDYTHFMR7100-60-07 09:53:13 Test Item Value Reference Range Interpretation Comments Plt Morph (test code = Normal (09/05/20 3:53 Plt Morph) AM) [facility]2020-12-06 09:53:13 Test Item Value Reference Range Interpretation Comments Magnesium Lvl (test code = Magnesium 2.2 1.8-2.4 Lvl) [place] [address]-12-06 09:53:13 Test Item Value Reference Range Interpretation Comments Phosphorus (test code = Phosphorus) 2.9 2.5-4.5 [place] [address]-12-06 09:53:13 Test Item Value Reference Range Interpretation Comments Glucose Lvl (test code = Glucose Lvl) 102 70-99 [place] [address]-12-06 09:53:13 Test Item Value Reference Range Interpretation Comments BUN (test code = BUN) 17 7-22 [place] [address]-12-06 09:53:13 Test Item Value Reference Range Interpretation Comments Creatinine Lvl (test code = Creatinine 1.51 0.50-1.40 Lvl) [place] [address]-12-06 09:53:13 Test Item Value Reference Range Interpretation Comments Sodium Lvl (test code = Sodium Lvl) 140 135-145 [place] [address]-12-06 09:53:13 Test Item Value Reference Range Interpretation Comments Potassium Lvl (test code = Potassium 3.5 3.5-5.1 Lvl) [place] 468410-12-06 09:53:13 Test Item Value Reference Range Interpretation Comments Chloride Lvl (test code = Chloride Lvl) 106 95-109 [place] 468410-12-06 09:53:13 Test Item Value Reference Range Interpretation Comments CO2 (test code = CO2) 29 24-32 [place] 468410-12-06 09:53:13 Test Item Value Reference Range Interpretation Comments Calcium Lvl (test code = Calcium Lvl) 8.3 8.5-10.5 [place] [address]-12-06 09:53:13 Test Item Value Reference Range Interpretation Comments AGAP (test code = AGAP) 8.5 10.0-20.0 [place] [address]-12-06 09:53:13 Test Item Value Reference Range Interpretation Comments eGFR (test code = eGFR) 33 [place] [address]-12-06 09:53:13 Test Item Value Reference Range Interpretation Comments WBC (test code = WBC) 8.7 3.7-10.4 [place] [address]-12-06 09:53:13 Test Item Value Reference Range Interpretation Comments RBC (test code = RBC) 3.96 4.20-5.40 [place] [address]-12-06 09:53:13 Test Item Value Reference Range Interpretation Comments Hgb (test code = Hgb) 10.7 12.0-16.0 [place] [address]-12-06 09:53:13 Test Item Value Reference Range Interpretation Comments Hct (test code = Hct) 32.8 36.0-48.0 [place] [address]-12-06 09:53:13 Test Item Value Reference Range Interpretation Comments MCV (test code = MCV) 83.0 80.0-98.0 [place] [address]-12-06 09:53:13 Test Item Value Reference Range Interpretation Comments MCH (test code = MCH) 26.9 pg 27.0-31.0 [place] [address]-12-06 09:53:13 Test Item Value Reference Range Interpretation Comments MCHC (test code = MCHC) 32.4 32.0-36.0 [place] 391170-12-06 09:53:13 Test Item Value Reference Range Interpretation Comments RDW (test code = RDW) 16.5 11.5-14.5 [place] [address]-12-06 09:53:13 Test Item Value Reference Range Interpretation Comments Platelet (test code = Platelet) 157 133-450 [place] [address]-12-06 09:53:13 Test Item Value Reference Range Interpretation Comments MPV (test code = MPV) 7.5 7.4-10.4 [place] [address]-12-06 09:53:13 Test Item Value Reference Range Interpretation Comments Neutrophils # (test code = Neutrophils 7.2 1.5-8.1 #) [place] [address]-12-06 09:53:13 Test Item Value Reference Range Interpretation Comments Lymphocytes # (test code = Lymphocytes 0.9 1.0-5.5 #) [place] [address]-12-06 09:53:13 Test Item Value Reference Range Interpretation Comments Monocytes # (test code 0.5 See_Comment [Aut omated message] The = Monocytes #) system which generated this result tra nsmitted reference range : <=0.8. The reference r chrsitiano was not used to int erpret this result as normal/abnormal . [facility] McAllenPuyofxwBZNHYFOYIC6175-52-64 09:53:13 Test Item Value Reference Range Interpretation Comments Basophils # (test code 0.1 See_Comment [Aut omated message] The = Basophils #) system which generated this result tra nsmitted reference range : <=0.2. The reference r christiano was not used to int erpret this result as normal/abnormal . [facility] McAllenUavllfcLCMGYUXMCV4300-65-38 09:53:13 Test Item Value Reference Range Interpretation Comments Segs (test code = Segs) 83.0 45.0-75.0 [facility] McAllenBoxvzubHTMRUIIOBJ6857-10-20 09:53:13 Test Item Value Reference Range Interpretation Comments Bands (test code = 0.0 See_Comment [Automat ed message] The Bands) system which ge nerated this result transmit sheba reference range : <=11.0. The reference r christiano was not used to interpr et this result as edy l/abnormal. [facility] McAllenYtkvrhtQKIFYJRMHD1641-13-76 09:53:13 Test Item Value Reference Range Interpretation Comments Lymphocytes (test code = Lymphocytes) 10.0 20.0-40.0 [facility] McAllenDgmxqfdZYQICIZLQW3240-24-67 09:53:13 Test Item Value Reference Range Interpretation Comments Monocytes (test code = Monocytes) 6.0 2.0-12.0 [facility] McAllenObufqudQHBLYLLUZD0091-35-58 09:53:13 Test Item Value Reference Range Interpretation Comments Basophils (test code = 1.0 See_Comment [Aut omated message] The Basophils) system which ge nerated this result tra nsmitted reference range : <=1.0. The reference r christiano was not used to int erpret this result as normal/abnormal . [facility] McAllenWoddztnGUXXYFZZMX2405-54-14 09:53:13 Test Item Value Reference Range Interpretation Comments Atypical Lymphs (test code = Atypical 0.0 Lymphs) [facility] McAllenOpqtxnnHZNHSBQQUP9104-70-09 09:53:13 Test Item Value Reference Range Interpretation Comments RBC Morph (test code = Normal (09/05/20 3:53 RBC Morph) AM) [facility] McAllenHaviumrEXDAQQPXNT4435-24-92 09:53:13 Test Item Value Reference Range Interpretation Comments Plt Morph (test code = Normal (09/05/20 3:53 Plt Morph) AM) [place] [address]-12-06 09:53:00 Test Item Value Reference Range Interpretation Comments Coronavirus (COVID-19) Not Detected (09/05/20 JONATHAN (test code = 3:53 AM) Coronavirus (COVID-19) JONATHAN) [address]12-06 09:53:00 Test Item Value Reference Range Interpretation Comments Coronavirus (COVID-19) Not Detected (09/05/20 JONATHAN (test code = 3:53 AM) Coronavirus (COVID-19) JONATHAN) [address]12-06 09:53:00 Test Item Value Reference Range Interpretation Comments Coronavirus (COVID-19) Not Detected (09/05/20 JONATHAN (test code = 3:53 AM) Coronavirus (COVID-19) JONATHAN) [address]12-06 09:53:00 Test Item Value Reference Range Interpretation Comments Coronavirus (COVID-19) Not Detected (09/05/20 JONATHAN (test code = 3:53 AM) Coronavirus (COVID-19) JONATHAN) [address]12-06 09:53:00 Test Item Value Reference Range Interpretation Comments Coronavirus (COVID-19) Not Detected (09/05/20 JONATHAN (test code = 3:53 AM) Coronavirus (COVID-19) JONATHAN) [place] [address]-12-06 09:53:00 Test Item Value Reference Range Interpretation Comments Coronavirus (COVID-19) Not Detected (09/05/20 JONATHAN (test code = 3:53 AM) Coronavirus (COVID-19) JONATHAN) [place] [address]-12-06 09:53:00 Test Item Value Reference Range Interpretation Comments Coronavirus (COVID-19) Not Detected (09/05/20 JONATHAN (test code = 3:53 AM) Coronavirus (COVID-19) JONATHAN) [place] [address]-12-06 09:53:00 Test Item Value Reference Range Interpretation Comments Coronavirus (COVID-19) Not Detected (09/05/20 JONATHAN (test code = 3:53 AM) Coronavirus (COVID-19) JONATHAN) [place] [address]-12-06 09:53:00 Test Item Value Reference Range Interpretation Comments Coronavirus (COVID-19) Not Detected (09/05/20 JONATHAN (test code = 3:53 AM) Coronavirus (COVID-19) J[facility]ATHAN) [facility]ke[facility]DRXWJSJM1176[facility] 09:53:00 Test Item Value Reference Range Interpretation Comments Coronavirus (COVID-19) Not Detected (09/05/20 JONATHAN (test code = 3:53 AM) Coronavirus (COVID-19) JONATHAN) [facility] CenterIxrcxckERRBJUSGAF0900-14-54 09:53:00 Test Item Value Reference Range Interpretation Comments Coronavirus (COVID-19) Not Detected (09/05/20 JONATHAN (test code = 3:53 AM) Coronavirus (COVID-19) JONATHAN) [facility] CenterSotssgvXXSHGQJUBB1189-16-33 09:53:00 Test Item Value Reference Range Interpretation Comments Coronavirus (COVID-19) Not Detected (09/05/20 JONATHAN (test code = 3:53 AM) Coronavirus (COVID-19) JONATHAN) [facility] CenterDcvkteyEIZQLCXWHN0942-55-35 09:53:00 Test Item Value Reference Range Interpretation Comments Coronavirus (COVID-19) Not Detected (09/05/20 JONATHAN (test code = 3:53 AM) Coronavirus (COVID-19) JONATHAN) [facility] CenterBcdcoewZGFYDQBKKP7129-39-49 09:53:00 Test Item Value Reference Range Interpretation Comments Coronavirus (COVID-19) Not Detected (09/05/20 JONATHAN (test code = 3:53 AM) Coronavirus (COVID-19) JONATHAN) [facility] CenterUyxbqjjGMWADSBSSC1310-79-70 09:53:00 Test Item Value Reference Range Interpretation Comments Coronavirus (COVID-19) Not Detected (09/05/20 JONATHAN (test code = 3:53 AM) Coronavirus (COVID-19) JONATHAN) [facility] CenterZgijltcWTHDEVLCMA3453-90-61 09:53:00 Test Item Value Reference Range Interpretation Comments Coronavirus (COVID-19) Not Detected (09/05/20 JONATHAN (test code = 3:53 AM) Coronavirus (COVID-19) JONATHAN) [facility]2020-12-06 04:34:00 Test Item Value Reference Range Interpretation Comments Troponin-I (test code no gt See_Comment [Auto mated message] The = Troponin-I) system which g enerated this result transmit sheba reference range : <=0.40. The reference r christiano was not used to interpr et this result as edy l/abnormal. [place] 468410-12-06 04:34:00 Test Item Value Reference Range Interpretation Comments Glucose Lvl (test code = Glucose Lvl) 125 70-99 [place] 468410-12-06 04:34:00 Test Item Value Reference Range Interpretation Comments BUN (test code = BUN) 17 7-22 [place] 468410-12-06 04:34:00 Test Item Value Reference Range Interpretation Comments Creatinine Lvl (test code = Creatinine 1.51 0.50-1.40 Lvl) [place] 468410-12-06 04:34:00 Test Item Value Reference Range Interpretation Comments Sodium Lvl (test code = Sodium Lvl) 142 135-145 [place] 468410-12-06 04:34:00 Test Item Value Reference Range Interpretation Comments Potassium Lvl (test code = Potassium 4.0 3.5-5.1 Lvl) [place] 468410-12-06 04:34:00 Test Item Value Reference Range Interpretation Comments Chloride Lvl (test code = Chloride Lvl) 108 95-109 [place] 468410-12-06 04:34:00 Test Item Value Reference Range Interpretation Comments CO2 (test code = CO2) 30 24-32 [place] 468410-12-06 04:34:00 Test Item Value Reference Range Interpretation Comments Calcium Lvl (test code = Calcium Lvl) 7.8 8.5-10.5 [place] 468410-12-06 04:34:00 Test Item Value Reference Range Interpretation Comments AGAP (test code = AGAP) 8.0 10.0-20.0 [place] 468410-12-06 04:34:00 Test Item Value Reference Range Interpretation Comments eGFR (test code = eGFR) 33 [place] 391170-12-06 04:34:00 Test Item Value Reference Range Interpretation Comments WBC X 10x3 (test code = WBC X 10x3) 9.7 3.7-10.4 [place] 391170-12-06 04:34:00 Test Item Value Reference Range Interpretation Comments RBC X 10x6 (test code = RBC X 10x6) 3.96 4.20-5.40 [place] [address]-12-06 04:34:00 Test Item Value Reference Range Interpretation Comments Hgb (test code = Hgb) 10.6 12.0-16.0 [place] [address]-12-06 04:34:00 Test Item Value Reference Range Interpretation Comments Hct (test code = Hct) 32.6 36.0-48.0 [place] 391170-12-06 04:34:00 Test Item Value Reference Range Interpretation Comments MCV (test code = MCV) 82.3 80.0-98.0 [place] [address]-12-06 04:34:00 Test Item Value Reference Range Interpretation Comments MCH (test code = MCH) 26.6 pg 27.0-31.0 [place] 391170-12-06 04:34:00 Test Item Value Reference Range Interpretation Comments MCHC (test code = MCHC) 32.4 32.0-36.0 [place] [address]-12-06 04:34:00 Test Item Value Reference Range Interpretation Comments RDW (test code = RDW) 16.8 11.5-14.5 [place] [address]-12-06 04:34:00 Test Item Value Reference Range Interpretation Comments Platelet (test code = Platelet) 178 133-450 [facility]AllenFztcscjAKFOMETWEC3600-77-67 04:34:00 Test Item Value Reference Range Interpretation Comments MPV (test code = MPV) 8.0 7.4-10.4 [place] [address]-12-06 04:34:00 Test Item Value Reference Range Interpretation Comments PT (test code = PT) 14.7 s 12.0-14.7 [place] [address]-12-06 04:34:00 Test Item Value Reference Range Interpretation Comments INR (test code = INR) 1.14 1 0.85-1.17 [place] [address]-12-06 04:34:00 Test Item Value Reference Range Interpretation Comments PTT (test code = PTT) 31.2 s 22.9-35.8 [place] [address]-12-06 04:34:00 Test Item Value Reference Range Interpretation Comments Segs (test code = Segs) 73.9 45.0-75.0 [facility] McAllenRuyblpdWRQTZQVKLU3834-96-11 04:34:00 Test Item Value Reference Range Interpretation Comments Lymphocytes (test code = Lymphocytes) 11.0 20.0-40.0 [facility] McAllenKkzspbxMTZNADZSOX2657-14-87 04:34:00 Test Item Value Reference Range Interpretation Comments Monocytes (test code = Monocytes) 13.6 2.0-12.0 [facility] McAllenSsagpehKVMLTJUKEO7734-85-18 04:34:00 Test Item Value Reference Range Interpretation Comments Eosinophils (test code = 0.7 See_Comment [A utomated message] The Eosinophils) system which ge nerated this result tra nsmitted reference range : <=4.0. The reference r christiano was not used to int erpret this result as normal/abnormal . [facility] McAllenBfkpsfeKSTPVUDJJI4194-48-09 04:34:00 Test Item Value Reference Range Interpretation Comments Basophils (test code = 0.8 See_Comment [Aut omated message] The Basophils) system which ge nerated this result tra nsmitted reference range : <=1.0. The reference r christiano was not used to int erpret this result as normal/abnormal . [facility] McAllenWezosxmPQACUHVVUQ6625-67-54 04:34:00 Test Item Value Reference Range Interpretation Comments Neutrophils # (test code = Neutrophils 7.2 1.5-8.1 #) [facility] McAllenZbbijpkMYWYMXNPYR7033-52-10 04:34:00 Test Item Value Reference Range Interpretation Comments Lymphocytes # (test code = Lymphocytes 1.1 1.0-5.5 #) [facility] McAllenQilukbkXYATHSNULX1251-21-60 04:34:00 Test Item Value Reference Range Interpretation Comments Monocytes # (test code 1.3 See_Comment [Aut omated message] The = Monocytes #) system which generated this result tra nsmitted reference range : <=0.8. The reference r christiano was not used to int erpret this result as normal/abnormal . [facility] McAllenBcqrbhkUOFRHQQZRT3546-00-12 04:34:00 Test Item Value Reference Range Interpretation Comments Eosinophils # (test code 0.1 See_Comment [A utomated message] The = Eosinophils #) system whic h generated this result tra nsmitted reference range : <=0.5. The reference r christiano was not used to int erpret this result as normal/abnormal . [place] [address]-12-06 04:34:00 Test Item Value Reference Range Interpretation Comments Basophils # (test code 0.1 See_Comment [Aut omated message] The = Basophils #) system which generated this result tra nsmitted reference range : <=0.2. The reference r christiano was not used to int erpret this result as normal/abnormal . [facility] JDHT[facility]64[facility]-61 04:34:00 Test Item Value Reference Range Interpretation Comments Troponin-I (test code no gt See_Comment [Auto mated message] The = Troponin-I) system which g enerated this result transmit sheba reference range : <=0.40. The reference r christiano was not used to interpr et this result as edy l/abnormal. [facility] [id number] 04:34:00 Test Item Value Reference Range Interpretation Comments Glucose Lvl (test code = Glucose Lvl) 125 70-99 [facility] [id number] 04:34:00 Test Item Value Reference Range Interpretation Comments BUN (test code = BUN) 17 7-22 [facility] [id number] 04:34:00 Test Item Value Reference Range Interpretation Comments Creatinine Lvl (test code = Creatinine 1.51 0.50-1.40 Lvl) [facility] [id number] 04:34:00 Test Item Value Reference Range Interpretation Comments Sodium Lvl (test code = Sodium Lvl) 142 135-145 [facility] [id number] 04:34:00 Test Item Value Reference Range Interpretation Comments Potassium Lvl (test code = Potassium 4.0 3.5-5.1 Lvl) [facility] [id number] 04:34:00 Test Item Value Reference Range Interpretation Comments Chloride Lvl (test code = Chloride Lvl) 108 95-109 [facility] [id number] 04:34:00 Test Item Value Reference Range Interpretation Comments CO2 (test code = CO2) 30 24-32 [facility] [id number] 04:34:00 Test Item Value Reference Range Interpretation Comments Calcium Lvl (test code = Calcium Lvl) 7.8 8.5-10.5 [facility] [id number] 04:34:00 Test Item Value Reference Range Interpretation Comments AGAP (test code = AGAP) 8.0 10.0-20.0 [facility]2020-12-06 04:34:00 Test Item Value Reference Range Interpretation Comments eGFR (test code = eGFR) 33 [facility] McAllenDkmqgeoCISKVTBWBQ0839-69-35 04:34:00 Test Item Value Reference Range Interpretation Comments WBC X 10x3 (test code = WBC X 10x3) 9.7 3.7-10.4 [facility] McAllenQioadzxHQCXDZZYBF2497-54-05 04:34:00 Test Item Value Reference Range Interpretation Comments RBC X 10x6 (test code = RBC X 10x6) 3.96 4.20-5.40 [facility]AllenKjhhxtyKJWZVJTURD9881-91-30 04:34:00 Test Item Value Reference Range Interpretation Comments Hgb (test code = Hgb) 10.6 12.0-16.0 [place] 391170-12-06 04:34:00 Test Item Value Reference Range Interpretation Comments Hct (test code = Hct) 32.6 36.0-48.0 [facility] McAllenDbfndwfOUDUAHBKMR2848-68-02 04:34:00 Test Item Value Reference Range Interpretation Comments MCV (test code = MCV) 82.3 80.0-98.0 [place] 391170-12-06 04:34:00 Test Item Value Reference Range Interpretation Comments MCH (test code = MCH) 26.6 pg 27.0-31.0 [facility] McAllenLnkwhxdJOUPWJXYDC9560-59-22 04:34:00 Test Item Value Reference Range Interpretation Comments MCHC (test code = MCHC) 32.4 32.0-36.0 [facility] McAllenHedasnqPXRCWJROHB5991-94-61 04:34:00 Test Item Value Reference Range Interpretation Comments RDW (test code = RDW) 16.8 11.5-14.5 [place] [address]-12-06 04:34:00 Test Item Value Reference Range Interpretation Comments Platelet (test code = Platelet) 178 133-450 [facility] McAllenKiojdllEOSFOBJRXP9954-96-04 04:34:00 Test Item Value Reference Range Interpretation Comments MPV (test code = MPV) 8.0 7.4-10.4 [place] 391170-12-06 04:34:00 Test Item Value Reference Range Interpretation Comments PT (test code = PT) 14.7 s 12.0-14.7 [place] 391170-12-06 04:34:00 Test Item Value Reference Range Interpretation Comments INR (test code = INR) 1.14 1 0.85-1.17 [place] 391170-12-06 04:34:00 Test Item Value Reference Range Interpretation Comments PTT (test code = PTT) 31.2 s 22.9-35.8 [place] 391170-12-06 04:34:00 Test Item Value Reference Range Interpretation Comments Segs (test code = Segs) 73.9 45.0-75.0 [place] 391170-12-06 04:34:00 Test Item Value Reference Range Interpretation Comments Lymphocytes (test code = Lymphocytes) 11.0 20.0-40.0 [place] 391170-12-06 04:34:00 Test Item Value Reference Range Interpretation Comments Monocytes (test code = Monocytes) 13.6 2.0-12.0 [facility] McAllenUntwqbrUKDXEESHLF6216-50-76 04:34:00 Test Item Value Reference Range Interpretation Comments Eosinophils (test code = 0.7 See_Comment [A utomated message] The Eosinophils) system which ge nerated this result tra nsmitted reference range : <=4.0. The reference r christiano was not used to int erpret this result as normal/abnormal . [facility] McAllenBgeevokXRAYBKBKUE5913-52-82 04:34:00 Test Item Value Reference Range Interpretation Comments Basophils (test code = 0.8 See_Comment [Aut omated message] The Basophils) system which ge nerated this result tra nsmitted reference range : <=1.0. The reference r christiano was not used to int erpret this result as normal/abnormal . [place] 391170-12-06 04:34:00 Test Item Value Reference Range Interpretation Comments Neutrophils # (test code = Neutrophils 7.2 1.5-8.1 #) [place] [address]-12-06 04:34:00 Test Item Value Reference Range Interpretation Comments Lymphocytes # (test code = Lymphocytes 1.1 1.0-5.5 #) [place] 391170-12-06 04:34:00 Test Item Value Reference Range Interpretation Comments Monocytes # (test code 1.3 See_Comment [Aut omated message] The = Monocytes #) system which generated this result tra nsmitted reference range : <=0.8. The reference r christiano was not used to int erpret this result as normal/abnormal . [facility] CenterXhjtpitZAQRTLYUKH9977-72-68 04:34:00 Test Item Value Reference Range Interpretation Comments Eosinophils # (test code 0.1 See_Comment [A utomated message] The = Eosinophils #) system whic h generated this result tra nsmitted reference range : <=0.5. The reference r christiano was not used to int erpret this result as normal/abnormal . [id number] 04:34:00 Test Item Value Reference Range Interpretation Comments Basophils # (test code 0.1 See_Comment [Aut omated message] The = Basophils #) system which generated this result tra nsmitted reference range : <=0.2. The reference r christiano was not used to int erpret this result as normal/abnormal . [facility] [id number] 04:34:00 Test Item Value Reference Range Interpretation Comments Troponin-I (test code no gt See_Comment [Auto mated message] The = Troponin-I) system which g enerated this result transmit sheba reference range : <=0.40. The reference r christiano was not used to interpr et this result as edy l/abnormal. [facility] [id number] 04:34:00 Test Item Value Reference Range Interpretation Comments Glucose Lvl (test code = Glucose Lvl) 125 70-99 [facility] [id number] 04:34:00 Test Item Value Reference Range Interpretation Comments BUN (test code = BUN) 17 7-22 [facility] [id number] 04:34:00 Test Item Value Reference Range Interpretation Comments Creatinine Lvl (test code = Creatinine 1.51 0.50-1.40 Lvl) [facility] [id number] 04:34:00 Test Item Value Reference Range Interpretation Comments Sodium Lvl (test code = Sodium Lvl) 142 135-145 [facility] [id number] 04:34:00 Test Item Value Reference Range Interpretation Comments Potassium Lvl (test code = Potassium 4.0 3.5-5.1 Lvl) [facility] [id number] 04:34:00 Test Item Value Reference Range Interpretation Comments Chloride Lvl (test code = Chloride Lvl) 108 95-109 [place] 468410-12-06 04:34:00 Test Item Value Reference Range Interpretation Comments CO2 (test code = CO2) 30 24-32 [place] 468410-12-06 04:34:00 Test Item Value Reference Range Interpretation Comments Calcium Lvl (test code = Calcium Lvl) 7.8 8.5-10.5 [place] 468410-12-06 04:34:00 Test Item Value Reference Range Interpretation Comments AGAP (test code = AGAP) 8.0 10.0-20.0 [place] 468410-12-06 04:34:00 Test Item Value Reference Range Interpretation Comments eGFR (test code = eGFR) 33 [place] 391170-12-06 04:34:00 Test Item Value Reference Range Interpretation Comments WBC X 10x3 (test code = WBC X 10x3) 9.7 3.7-10.4 [place] 391170-12-06 04:34:00 Test Item Value Reference Range Interpretation Comments RBC X 10x6 (test code = RBC X 10x6) 3.96 4.20-5.40 [place] 391170-12-06 04:34:00 Test Item Value Reference Range Interpretation Comments Hgb (test code = Hgb) 10.6 12.0-16.0 [place] [address]-12-06 04:34:00 Test Item Value Reference Range Interpretation Comments Hct (test code = Hct) 32.6 36.0-48.0 [place] 391170-12-06 04:34:00 Test Item Value Reference Range Interpretation Comments MCV (test code = MCV) 82.3 80.0-98.0 [place] [address]-12-06 04:34:00 Test Item Value Reference Range Interpretation Comments MCH (test code = MCH) 26.6 pg 27.0-31.0 [place] 391170-12-06 04:34:00 Test Item Value Reference Range Interpretation Comments MCHC (test code = MCHC) 32.4 32.0-36.0 [place] 391170-12-06 04:34:00 Test Item Value Reference Range Interpretation Comments RDW (test code = RDW) 16.8 11.5-14.5 [place] 391170-12-06 04:34:00 Test Item Value Reference Range Interpretation Comments Platelet (test code = Platelet) 178 133-450 [place] 391170-12-06 04:34:00 Test Item Value Reference Range Interpretation Comments MPV (test code = MPV) 8.0 7.4-10.4 [place] 391170-12-06 04:34:00 Test Item Value Reference Range Interpretation Comments PT (test code = PT) 14.7 s 12.0-14.7 [place] 391170-12-06 04:34:00 Test Item Value Reference Range Interpretation Comments INR (test code = INR) 1.14 1 0.85-1.17 [place] [address]-12-06 04:34:00 Test Item Value Reference Range Interpretation Comments PTT (test code = PTT) 31.2 s 22.9-35.8 [place] 391170-12-06 04:34:00 Test Item Value Reference Range Interpretation Comments Segs (test code = Segs) 73.9 45.0-75.0 [place] 391170-12-06 04:34:00 Test Item Value Reference Range Interpretation Comments Lymphocytes (test code = Lymphocytes) 11.0 20.0-40.0 [place] [address]-12-06 04:34:00 Test Item Value Reference Range Interpretation Comments Monocytes (test code = Monocytes) 13.6 2.0-12.0 [place] [address]-12-06 04:34:00 Test Item Value Reference Range Interpretation Comments Eosinophils (test code = 0.7 See_Comment [A utomated message] The Eosinophils) system which ge nerated this result tra nsmitted reference range : <=4.0. The reference r christiano was not used to int erpret this result as normal/abnormal . [place] [address]-12-06 04:34:00 Test Item Value Reference Range Interpretation Comments Basophils (test code = 0.8 See_Comment [Aut omated message] The Basophils) system which ge nerated this result tra nsmitted reference range : <=1.0. The reference r christiano was not used to int erpret this result as normal/abnormal . [facility] McAllenRvprjwhSKFLFTEQGK4205-86-23 04:34:00 Test Item Value Reference Range Interpretation Comments Neutrophils # (test code = Neutrophils 7.2 1.5-8.1 #) [facility] McAllenXbuwsuySDSXEYTEKN5586-16-95 04:34:00 Test Item Value Reference Range Interpretation Comments Lymphocytes # (test code = Lymphocytes 1.1 1.0-5.5 #) [facility] McAllenKecimvjIHHZPPMNWA2622-84-76 04:34:00 Test Item Value Reference Range Interpretation Comments Monocytes # (test code 1.3 See_Comment [Aut omated message] The = Monocytes #) system which generated this result tra nsmitted reference range : <=0.8. The reference r christiano was not used to int erpret this result as normal/abnormal . [facility] [id number] 04:34:00 Test Item Value Reference Range Interpretation Comments Eosinophils # (test code 0.1 See_Comment [A utomated message] The = Eosinophils #) system whic h generated this result tra nsmitted reference range : <=0.5. The reference r christiano was not used to int erpret this result as normal/abnormal . [facility] McAllenAlvyaisLBKIWHRZHC2229-67-47 04:34:00 Test Item Value Reference Range Interpretation Comments Basophils # (test code 0.1 See_Comment [Aut omated message] The = Basophils #) system which generated this result tra nsmitted reference range : <=0.2. The reference r christiano was not used to int erpret this result as normal/abnormal . [facility] [id number] 04:34:00 Test Item Value Reference Range Interpretation Comments Troponin-I (test code no gt See_Comment [Auto mated message] The = Troponin-I) system which g enerated this result transmit sheba reference range : <=0.40. The reference r christiano was not used to interpr et this result as edy l/abnormal. [facility] [id number] 04:34:00 Test Item Value Reference Range Interpretation Comments Glucose Lvl (test code = Glucose Lvl) 125 70-99 [facility] [id number] 04:34:00 Test Item Value Reference Range Interpretation Comments BUN (test code = BUN) 17 7-22 [facility] [id number] 04:34:00 Test Item Value Reference Range Interpretation Comments Creatinine Lvl (test code = Creatinine 1.51 0.50-1.40 Lvl) [place] 468410-12-06 04:34:00 Test Item Value Reference Range Interpretation Comments Sodium Lvl (test code = Sodium Lvl) 142 135-145 [place] 468410-12-06 04:34:00 Test Item Value Reference Range Interpretation Comments Potassium Lvl (test code = Potassium 4.0 3.5-5.1 Lvl) [place] 468410-12-06 04:34:00 Test Item Value Reference Range Interpretation Comments Chloride Lvl (test code = Chloride Lvl) 108 95-109 [place] 468410-12-06 04:34:00 Test Item Value Reference Range Interpretation Comments CO2 (test code = CO2) 30 24-32 [place] [address]-12-06 04:34:00 Test Item Value Reference Range Interpretation Comments Calcium Lvl (test code = Calcium Lvl) 7.8 8.5-10.5 [place] 468410-12-06 04:34:00 Test Item Value Reference Range Interpretation Comments AGAP (test code = AGAP) 8.0 10.0-20.0 [place] 468410-12-06 04:34:00 Test Item Value Reference Range Interpretation Comments eGFR (test code = eGFR) 33 [place] [address]-12-06 04:34:00 Test Item Value Reference Range Interpretation Comments WBC X 10x3 (test code = WBC X 10x3) 9.7 3.7-10.4 [place] [address]-12-06 04:34:00 Test Item Value Reference Range Interpretation Comments RBC X 10x6 (test code = RBC X 10x6) 3.96 4.20-5.40 [place] [address]-12-06 04:34:00 Test Item Value Reference Range Interpretation Comments Hgb (test code = Hgb) 10.6 12.0-16.0 [place] [address]-12-06 04:34:00 Test Item Value Reference Range Interpretation Comments Hct (test code = Hct) 32.6 36.0-48.0 [place] [address]-12-06 04:34:00 Test Item Value Reference Range Interpretation Comments MCV (test code = MCV) 82.3 80.0-98.0 [place] [address]-12-06 04:34:00 Test Item Value Reference Range Interpretation Comments MCH (test code = MCH) 26.6 pg 27.0-31.0 [place] [address]-12-06 04:34:00 Test Item Value Reference Range Interpretation Comments MCHC (test code = MCHC) 32.4 32.0-36.0 [place] 391170-12-06 04:34:00 Test Item Value Reference Range Interpretation Comments RDW (test code = RDW) 16.8 11.5-14.5 [place] [address]-12-06 04:34:00 Test Item Value Reference Range Interpretation Comments Platelet (test code = Platelet) 178 133-450 [place] 391170-12-06 04:34:00 Test Item Value Reference Range Interpretation Comments MPV (test code = MPV) 8.0 7.4-10.4 [place] 391170-12-06 04:34:00 Test Item Value Reference Range Interpretation Comments PT (test code = PT) 14.7 s 12.0-14.7 [place] [address]-12-06 04:34:00 Test Item Value Reference Range Interpretation Comments INR (test code = INR) 1.14 1 0.85-1.17 [place] [address]-12-06 04:34:00 Test Item Value Reference Range Interpretation Comments PTT (test code = PTT) 31.2 s 22.9-35.8 [place] [address]-12-06 04:34:00 Test Item Value Reference Range Interpretation Comments Segs (test code = Segs) 73.9 45.0-75.0 [place] [address]-12-06 04:34:00 Test Item Value Reference Range Interpretation Comments Lymphocytes (test code = Lymphocytes) 11.0 20.0-40.0 [place] [address]-12-06 04:34:00 Test Item Value Reference Range Interpretation Comments Monocytes (test code = Monocytes) 13.6 2.0-12.0 [place] [address]-12-06 04:34:00 Test Item Value Reference Range Interpretation Comments Eosinophils (test code = 0.7 See_Comment [A utomated message] The Eosinophils) system which ge nerated this result tra nsmitted reference range : <=4.0. The reference r christiano was not used to int erpret this result as normal/abnormal . [facility] McAllenRcuabqhEMIQBYLUAA9979-84-55 04:34:00 Test Item Value Reference Range Interpretation Comments Basophils (test code = 0.8 See_Comment [Aut omated message] The Basophils) system which ge nerated this result tra nsmitted reference range : <=1.0. The reference r christiano was not used to int erpret this result as normal/abnormal . [facility] McAllenAyldejkORBGBKLNOP6212-49-53 04:34:00 Test Item Value Reference Range Interpretation Comments Neutrophils # (test code = Neutrophils 7.2 1.5-8.1 #) [facility] McAllenJcnywreMOEUSYWBNA5424-77-75 04:34:00 Test Item Value Reference Range Interpretation Comments Lymphocytes # (test code = Lymphocytes 1.1 1.0-5.5 #) [facility] McAllenPasghliWTHJUZYATP2644-87-08 04:34:00 Test Item Value Reference Range Interpretation Comments Monocytes # (test code 1.3 See_Comment [Aut omated message] The = Monocytes #) system which generated this result tra nsmitted reference range : <=0.8. The reference r christiano was not used to int erpret this result as normal/abnormal . [facility] McAllenSlipdxeOTOJHXIGIN6639-29-92 04:34:00 Test Item Value Reference Range Interpretation Comments Eosinophils # (test code 0.1 See_Comment [A utomated message] The = Eosinophils #) system whic h generated this result tra nsmitted reference range : <=0.5. The reference r christiano was not used to int erpret this result as normal/abnormal . [facility] McAllenRuurnyaXLYNCIHVMI4181-49-60 04:34:00 Test Item Value Reference Range Interpretation Comments Basophils # (test code 0.1 See_Comment [Aut omated message] The = Basophils #) system which generated this result tra nsmitted reference range : <=0.2. The reference r christiano was not used to int erpret this result as normal/abnormal . [facility] [id number] 04:34:00 Test Item Value Reference Range Interpretation Comments Troponin-I (test code no gt See_Comment [Auto mated message] The = Troponin-I) system which g enerated this result transmit sheba reference range : <=0.40. The reference r christiano was not used to interpr et this result as edy l/abnormal. [place] 468410-12-06 04:34:00 Test Item Value Reference Range Interpretation Comments Glucose Lvl (test code = Glucose Lvl) 125 70-99 [place] [address]-12-06 04:34:00 Test Item Value Reference Range Interpretation Comments BUN (test code = BUN) 17 7-22 [place] 468410-12-06 04:34:00 Test Item Value Reference Range Interpretation Comments Creatinine Lvl (test code = Creatinine 1.51 0.50-1.40 Lvl) [place] 468410-12-06 04:34:00 Test Item Value Reference Range Interpretation Comments Sodium Lvl (test code = Sodium Lvl) 142 135-145 [place] 468410-12-06 04:34:00 Test Item Value Reference Range Interpretation Comments Potassium Lvl (test code = Potassium 4.0 3.5-5.1 Lvl) [place] 468410-12-06 04:34:00 Test Item Value Reference Range Interpretation Comments Chloride Lvl (test code = Chloride Lvl) 108 95-109 [place] 468410-12-06 04:34:00 Test Item Value Reference Range Interpretation Comments CO2 (test code = CO2) 30 24-32 [place] 468410-12-06 04:34:00 Test Item Value Reference Range Interpretation Comments Calcium Lvl (test code = Calcium Lvl) 7.8 8.5-10.5 [place] 468410-12-06 04:34:00 Test Item Value Reference Range Interpretation Comments AGAP (test code = AGAP) 8.0 10.0-20.0 [place] [address]-12-06 04:34:00 Test Item Value Reference Range Interpretation Comments eGFR (test code = eGFR) 33 [place] 391170-12-06 04:34:00 Test Item Value Reference Range Interpretation Comments WBC X 10x3 (test code = WBC X 10x3) 9.7 3.7-10.4 [place] 391170-12-06 04:34:00 Test Item Value Reference Range Interpretation Comments RBC X 10x6 (test code = RBC X 10x6) 3.96 4.20-5.40 [place] 391170-12-06 04:34:00 Test Item Value Reference Range Interpretation Comments Hgb (test code = Hgb) 10.6 12.0-16.0 [place] [address]-12-06 04:34:00 Test Item Value Reference Range Interpretation Comments Hct (test code = Hct) 32.6 36.0-48.0 [place] 391170-12-06 04:34:00 Test Item Value Reference Range Interpretation Comments MCV (test code = MCV) 82.3 80.0-98.0 [place] [address]-12-06 04:34:00 Test Item Value Reference Range Interpretation Comments MCH (test code = MCH) 26.6 pg 27.0-31.0 [place] [address]-12-06 04:34:00 Test Item Value Reference Range Interpretation Comments MCHC (test code = MCHC) 32.4 32.0-36.0 [place] 391170-12-06 04:34:00 Test Item Value Reference Range Interpretation Comments RDW (test code = RDW) 16.8 11.5-14.5 [place] 391170-12-06 04:34:00 Test Item Value Reference Range Interpretation Comments Platelet (test code = Platelet) 178 133-450 [facility] McAllenLemwhfrCWNMPBYQKI3198-32-92 04:34:00 Test Item Value Reference Range Interpretation Comments MPV (test code = MPV) 8.0 7.4-10.4 [place] [address]-12-06 04:34:00 Test Item Value Reference Range Interpretation Comments PT (test code = PT) 14.7 s 12.0-14.7 [place] [address]-12-06 04:34:00 Test Item Value Reference Range Interpretation Comments INR (test code = INR) 1.14 1 0.85-1.17 [place] [address]-12-06 04:34:00 Test Item Value Reference Range Interpretation Comments PTT (test code = PTT) 31.2 s 22.9-35.8 [place] [address]-12-06 04:34:00 Test Item Value Reference Range Interpretation Comments Segs (test code = Segs) 73.9 45.0-75.0 [facility] McAllenBstrptqPECIBQGHDE2822-33-43 04:34:00 Test Item Value Reference Range Interpretation Comments Lymphocytes (test code = Lymphocytes) 11.0 20.0-40.0 [place] 391170-12-06 04:34:00 Test Item Value Reference Range Interpretation Comments Monocytes (test code = Monocytes) 13.6 2.0-12.0 [facility] McAllenXwwldasRFOEETCCKL7083-68-66 04:34:00 Test Item Value Reference Range Interpretation Comments Eosinophils (test code = 0.7 See_Comment [A utomated message] The Eosinophils) system which ge nerated this result tra nsmitted reference range : <=4.0. The reference r christiano was not used to int erpret this result as normal/abnormal . [place] 391170-12-06 04:34:00 Test Item Value Reference Range Interpretation Comments Basophils (test code = 0.8 See_Comment [Aut omated message] The Basophils) system which ge nerated this result tra nsmitted reference range : <=1.0. The reference r christiano was not used to int erpret this result as normal/abnormal . [facility] McAllenTqnmxcfZOBGXVDIPV4527-04-92 04:34:00 Test Item Value Reference Range Interpretation Comments Neutrophils # (test code = Neutrophils 7.2 1.5-8.1 #) [facility] McAllenAzfabhaHNOMBSNVHM4115-96-66 04:34:00 Test Item Value Reference Range Interpretation Comments Lymphocytes # (test code = Lymphocytes 1.1 1.0-5.5 #) [place] 391170-12-06 04:34:00 Test Item Value Reference Range Interpretation Comments Monocytes # (test code 1.3 See_Comment [Aut omated message] The = Monocytes #) system which generated this result tra nsmitted reference range : <=0.8. The reference r christiano was not used to int erpret this result as normal/abnormal . [place] 391170-12-06 04:34:00 Test Item Value Reference Range Interpretation Comments Eosinophils # (test code 0.1 See_Comment [A utomated message] The = Eosinophils #) system whic h generated this result tra nsmitted reference range : <=0.5. The reference r christiano was not used to int erpret this result as normal/abnormal . [facility]LgnruaxZERBGROSOA9023-22-69 04:34:00 Test Item Value Reference Range Interpretation Comments Basophils # (test code 0.1 See_Comment [Aut omated message] The = Basophils #) system which generated this result tra nsmitted reference range : <=0.2. The reference r christiano was not used to int erpret this result as normal/abnormal . [facility] [id number] 04:34:00 Test Item Value Reference Range Interpretation Comments Troponin-I (test code no gt See_Comment [Auto mated message] The = Troponin-I) system which g enerated this result transmit sheba reference range : <=0.40. The reference r christiano was not used to interpr et this result as edy l/abnormal. [facility] [id number] 04:34:00 Test Item Value Reference Range Interpretation Comments Glucose Lvl (test code = Glucose Lvl) 125 70-99 [facility] [id number] 04:34:00 Test Item Value Reference Range Interpretation Comments BUN (test code = BUN) 17 7-22 [facility] [id number] 04:34:00 Test Item Value Reference Range Interpretation Comments Creatinine Lvl (test code = Creatinine 1.51 0.50-1.40 Lvl) [facility] [id number] 04:34:00 Test Item Value Reference Range Interpretation Comments Sodium Lvl (test code = Sodium Lvl) 142 135-145 [facility] [id number] 04:34:00 Test Item Value Reference Range Interpretation Comments Potassium Lvl (test code = Potassium 4.0 3.5-5.1 Lvl) [facility] [id number] 04:34:00 Test Item Value Reference Range Interpretation Comments Chloride Lvl (test code = Chloride Lvl) 108 95-109 [facility] [id number] 04:34:00 Test Item Value Reference Range Interpretation Comments CO2 (test code = CO2) 30 24-32 [facility] [id number] 04:34:00 Test Item Value Reference Range Interpretation Comments Calcium Lvl (test code = Calcium Lvl) 7.8 8.5-10.5 [facility] [id number] 04:34:00 Test Item Value Reference Range Interpretation Comments AGAP (test code = AGAP) 8.0 10.0-20.0 [facility]2020-12-06 04:34:00 Test Item Value Reference Range Interpretation Comments eGFR (test code = eGFR) 33 [facility]aultMlrnuhoYOCPDLKYRE2991-61-81 04:34:00 Test Item Value Reference Range Interpretation Comments WBC X 10x3 (test code = WBC X 10x3) 9.7 3.7-10.4 [facility] McAllenFwrfqdtYFUVHXRZVF1803-98-85 04:34:00 Test Item Value Reference Range Interpretation Comments RBC X 10x6 (test code = RBC X 10x6) 3.96 4.20-5.40 [place] 391170-12-06 04:34:00 Test Item Value Reference Range Interpretation Comments Hgb (test code = Hgb) 10.6 12.0-16.0 [facility] McAllenBkymydtSJLJYOPXJT3963-31-45 04:34:00 Test Item Value Reference Range Interpretation Comments Hct (test code = Hct) 32.6 36.0-48.0 [facility] McAllenBkytngeJOCNGXAIGV9404-16-04 04:34:00 Test Item Value Reference Range Interpretation Comments MCV (test code = MCV) 82.3 80.0-98.0 [facility] CenterQjoyfwpSVMQJGEAPV2923-27-56 04:34:00 Test Item Value Reference Range Interpretation Comments MCH (test code = MCH) 26.6 pg 27.0-31.0 [facility] SaultApmoskfJGFNFXXMDI7808-72-63 04:34:00 Test Item Value Reference Range Interpretation Comments MCHC (test code = MCHC) 32.4 32.0-36.0 [facility] McAllenCpzfzowBLRMCTNVVI6479-76-32 04:34:00 Test Item Value Reference Range Interpretation Comments RDW (test code = RDW) 16.8 11.5-14.5 [facility] SaultGvfvcapPCZGSJVMCQ3754-62-88 04:34:00 Test Item Value Reference Range Interpretation Comments Platelet (test code = Platelet) 178 133-450 [facility] McAllenRxxjzsqUTMBGIJVUG5703-37-25 04:34:00 Test Item Value Reference Range Interpretation Comments MPV (test code = MPV) 8.0 7.4-10.4 [facility] McAllenAbjcsrqMVYYRSQQPM8637-53-42 04:34:00 Test Item Value Reference Range Interpretation Comments PT (test code = PT) 14.7 s 12.0-14.7 [place] 391170-12-06 04:34:00 Test Item Value Reference Range Interpretation Comments INR (test code = INR) 1.14 1 0.85-1.17 [place] 391170-12-06 04:34:00 Test Item Value Reference Range Interpretation Comments PTT (test code = PTT) 31.2 s 22.9-35.8 [place] 391170-12-06 04:34:00 Test Item Value Reference Range Interpretation Comments Segs (test code = Segs) 73.9 45.0-75.0 [place] 391170-12-06 04:34:00 Test Item Value Reference Range Interpretation Comments Lymphocytes (test code = Lymphocytes) 11.0 20.0-40.0 [place] [address]-12-06 04:34:00 Test Item Value Reference Range Interpretation Comments Monocytes (test code = Monocytes) 13.6 2.0-12.0 [place] 391170-12-06 04:34:00 Test Item Value Reference Range Interpretation Comments Eosinophils (test code = 0.7 See_Comment [A utomated message] The Eosinophils) system which ge nerated this result tra nsmitted reference range : <=4.0. The reference r christiano was not used to int erpret this result as normal/abnormal . [facility] McAllenEzrloimDBYSBLTTPT1740-84-13 04:34:00 Test Item Value Reference Range Interpretation Comments Basophils (test code = 0.8 See_Comment [Aut omated message] The Basophils) system which ge nerated this result tra nsmitted reference range : <=1.0. The reference r christiano was not used to int erpret this result as normal/abnormal . [facility] McAllenLkzhudnSYYJGJWQOB6780-58-04 04:34:00 Test Item Value Reference Range Interpretation Comments Neutrophils # (test code = Neutrophils 7.2 1.5-8.1 #) [place] 391170-12-06 04:34:00 Test Item Value Reference Range Interpretation Comments Lymphocytes # (test code = Lymphocytes 1.1 1.0-5.5 #) [place] 391170-12-06 04:34:00 Test Item Value Reference Range Interpretation Comments Monocytes # (test code 1.3 See_Comment [Aut omated message] The = Monocytes #) system which generated this result tra nsmitted reference range : <=0.8. The reference r christiano was not used to int erpret this result as normal/abnormal . [id number] 04:34:00 Test Item Value Reference Range Interpretation Comments Eosinophils # (test code 0.1 See_Comment [A utomated message] The = Eosinophils #) system whic h generated this result tra nsmitted reference range : <=0.5. The reference r christiano was not used to int erpret this result as normal/abnormal . [facility]aultOjfnaszQFVHLGXIWJ8552-93-02 04:34:00 Test Item Value Reference Range Interpretation Comments Basophils # (test code 0.1 See_Comment [Aut omated message] The = Basophils #) system which generated this result tra nsmitted reference range : <=0.2. The reference r christiano was not used to int erpret this result as normal/abnormal . [facility] [id number] 04:34:00 Test Item Value Reference Range Interpretation Comments Troponin-I (test code no gt See_Comment [Auto mated message] The = Troponin-I) system which g enerated this result transmit sheba reference range : <=0.40. The reference r christiano was not used to interpr et this result as edy l/abnormal. [facility] [id number] 04:34:00 Test Item Value Reference Range Interpretation Comments Glucose Lvl (test code = Glucose Lvl) 125 70-99 [facility] [id number] 04:34:00 Test Item Value Reference Range Interpretation Comments BUN (test code = BUN) 17 7-22 [facility] [id number] 04:34:00 Test Item Value Reference Range Interpretation Comments Creatinine Lvl (test code = Creatinine 1.51 0.50-1.40 Lvl) [facility] [id number] 04:34:00 Test Item Value Reference Range Interpretation Comments Sodium Lvl (test code = Sodium Lvl) 142 135-145 [facility] [id number] 04:34:00 Test Item Value Reference Range Interpretation Comments Potassium Lvl (test code = Potassium 4.0 3.5-5.1 Lvl) [facility] access [id number] 04:34:00 Test Item Value Reference Range Interpretation Comments Chloride Lvl (test code = Chloride Lvl) 108 95-109 [place] 468410-12-06 04:34:00 Test Item Value Reference Range Interpretation Comments CO2 (test code = CO2) 30 24-32 [place] [address]-12-06 04:34:00 Test Item Value Reference Range Interpretation Comments Calcium Lvl (test code = Calcium Lvl) 7.8 8.5-10.5 [place] 468410-12-06 04:34:00 Test Item Value Reference Range Interpretation Comments AGAP (test code = AGAP) 8.0 10.0-20.0 [place] 468410-12-06 04:34:00 Test Item Value Reference Range Interpretation Comments eGFR (test code = eGFR) 33 [facility]AllenJdmkjxaQGYSIZBKPI6246-05-85 04:34:00 Test Item Value Reference Range Interpretation Comments WBC X 10x3 (test code = WBC X 10x3) 9.7 3.7-10.4 [place] 391170-12-06 04:34:00 Test Item Value Reference Range Interpretation Comments RBC X 10x6 (test code = RBC X 10x6) 3.96 4.20-5.40 [place] 391170-12-06 04:34:00 Test Item Value Reference Range Interpretation Comments Hgb (test code = Hgb) 10.6 12.0-16.0 [place] [address]-12-06 04:34:00 Test Item Value Reference Range Interpretation Comments Hct (test code = Hct) 32.6 36.0-48.0 [place] [address]-12-06 04:34:00 Test Item Value Reference Range Interpretation Comments MCV (test code = MCV) 82.3 80.0-98.0 [place] [address]-12-06 04:34:00 Test Item Value Reference Range Interpretation Comments MCH (test code = MCH) 26.6 pg 27.0-31.0 [place] 391170-12-06 04:34:00 Test Item Value Reference Range Interpretation Comments MCHC (test code = MCHC) 32.4 32.0-36.0 [place] [address]-12-06 04:34:00 Test Item Value Reference Range Interpretation Comments RDW (test code = RDW) 16.8 11.5-14.5 [place] [address]-12-06 04:34:00 Test Item Value Reference Range Interpretation Comments Platelet (test code = Platelet) 178 133-450 [place] 391170-12-06 04:34:00 Test Item Value Reference Range Interpretation Comments MPV (test code = MPV) 8.0 7.4-10.4 [place] [address]-12-06 04:34:00 Test Item Value Reference Range Interpretation Comments PT (test code = PT) 14.7 s 12.0-14.7 [place] [address]-12-06 04:34:00 Test Item Value Reference Range Interpretation Comments INR (test code = INR) 1.14 1 0.85-1.17 [place] [address]-12-06 04:34:00 Test Item Value Reference Range Interpretation Comments PTT (test code = PTT) 31.2 s 22.9-35.8 [place] [address]-12-06 04:34:00 Test Item Value Reference Range Interpretation Comments Segs (test code = Segs) 73.9 45.0-75.0 [place] [address]-12-06 04:34:00 Test Item Value Reference Range Interpretation Comments Lymphocytes (test code = Lymphocytes) 11.0 20.0-40.0 [place] [address]-12-06 04:34:00 Test Item Value Reference Range Interpretation Comments Monocytes (test code = Monocytes) 13.6 2.0-12.0 [place] [address]-12-06 04:34:00 Test Item Value Reference Range Interpretation Comments Eosinophils (test code = 0.7 See_Comment [A utomated message] The Eosinophils) system which ge nerated this result tra nsmitted reference range : <=4.0. The reference r christiano was not used to int erpret this result as normal/abnormal . [place] [address]-12-06 04:34:00 Test Item Value Reference Range Interpretation Comments Basophils (test code = 0.8 See_Comment [Aut omated message] The Basophils) system which ge nerated this result tra nsmitted reference range : <=1.0. The reference r christiano was not used to int erpret this result as normal/abnormal . [facility] SaultZxbvbqaODWHQFSOFC1059-04-51 04:34:00 Test Item Value Reference Range Interpretation Comments Neutrophils # (test code = Neutrophils 7.2 1.5-8.1 #) [facility] SaultBubtnueKYMZJMSDWZ0436-85-04 04:34:00 Test Item Value Reference Range Interpretation Comments Lymphocytes # (test code = Lymphocytes 1.1 1.0-5.5 #) [facility] McAllenZuxfcapNCRZYAKPIK1200-35-76 04:34:00 Test Item Value Reference Range Interpretation Comments Monocytes # (test code 1.3 See_Comment [Aut omated message] The = Monocytes #) system which generated this result tra nsmitted reference range : <=0.8. The reference r christiano was not used to int erpret this result as normal/abnormal . [facility] McAllenNamegmvLOAPUZSKUN6059-53-70 04:34:00 Test Item Value Reference Range Interpretation Comments Eosinophils # (test code 0.1 See_Comment [A utomated message] The = Eosinophils #) system whic h generated this result tra nsmitted reference range : <=0.5. The reference r christiano was not used to int erpret this result as normal/abnormal . [facility] McAllenFxvqnaqBJRRYZODDJ1673-84-34 04:34:00 Test Item Value Reference Range Interpretation Comments Basophils # (test code 0.1 See_Comment [Aut omated message] The = Basophils #) system which generated this result tra nsmitted reference range : <=0.2. The reference r christiano was not used to int erpret this result as normal/abnormal . [facility] GDIOHLO8787-10-08 04:34:00 Test Item Value Reference Range Interpretation Comments Troponin-I (test code no gt See_Comment [Auto mated message] The = Troponin-I) system which g enerated this result transmit sheba reference range : <=0.40. The reference r christiano was not used to interpr et this result as edy l/abnormal. [facility] [id number] 04:34:00 Test Item Value Reference Range Interpretation Comments Glucose Lvl (test code = Glucose Lvl) 125 70-99 [facility] [id number] 04:34:00 Test Item Value Reference Range Interpretation Comments BUN (test code = BUN) 17 7-22 [facility] 04:34:00 Test Item Value Reference Range Interpretation Comments Creatinine Lvl (test code = Creatinine 1.51 0.50-1.40 Lvl) [place] 468410-12-06 04:34:00 Test Item Value Reference Range Interpretation Comments Sodium Lvl (test code = Sodium Lvl) 142 135-145 [place] [address]-12-06 04:34:00 Test Item Value Reference Range Interpretation Comments Potassium Lvl (test code = Potassium 4.0 3.5-5.1 Lvl) [place] 468410-12-06 04:34:00 Test Item Value Reference Range Interpretation Comments Chloride Lvl (test code = Chloride Lvl) 108 95-109 [place] 468410-12-06 04:34:00 Test Item Value Reference Range Interpretation Comments CO2 (test code = CO2) 30 24-32 [place] [address]-12-06 04:34:00 Test Item Value Reference Range Interpretation Comments Calcium Lvl (test code = Calcium Lvl) 7.8 8.5-10.5 [place] 468410-12-06 04:34:00 Test Item Value Reference Range Interpretation Comments AGAP (test code = AGAP) 8.0 10.0-20.0 [place] 468410-12-06 04:34:00 Test Item Value Reference Range Interpretation Comments eGFR (test code = eGFR) 33 [place] [address]-12-06 04:34:00 Test Item Value Reference Range Interpretation Comments WBC X 10x3 (test code = WBC X 10x3) 9.7 3.7-10.4 [place] [address]-12-06 04:34:00 Test Item Value Reference Range Interpretation Comments RBC X 10x6 (test code = RBC X 10x6) 3.96 4.20-5.40 [place] [address]-12-06 04:34:00 Test Item Value Reference Range Interpretation Comments Hgb (test code = Hgb) 10.6 12.0-16.0 [address]12-06 04:34:00 Test Item Value Reference Range Interpretation Comments Hct (test code = Hct) 32.6 36.0-48.0 [place] [address]-12-06 04:34:00 Test Item Value Reference Range Interpretation Comments MCV (test code = MCV) 82.3 80.0-98.0 [place] 391170-12-06 04:34:00 Test Item Value Reference Range Interpretation Comments MCH (test code = MCH) 26.6 pg 27.0-31.0 [place] 391170-12-06 04:34:00 Test Item Value Reference Range Interpretation Comments MCHC (test code = MCHC) 32.4 32.0-36.0 [place] [address]-12-06 04:34:00 Test Item Value Reference Range Interpretation Comments RDW (test code = RDW) 16.8 11.5-14.5 [place] [address]-12-06 04:34:00 Test Item Value Reference Range Interpretation Comments Platelet (test code = Platelet) 178 133-450 [place] 391170-12-06 04:34:00 Test Item Value Reference Range Interpretation Comments MPV (test code = MPV) 8.0 7.4-10.4 [place] 391170-12-06 04:34:00 Test Item Value Reference Range Interpretation Comments PT (test code = PT) 14.7 s 12.0-14.7 [place] [address]-12-06 04:34:00 Test Item Value Reference Range Interpretation Comments INR (test code = INR) 1.14 1 0.85-1.17 [place] [address]-12-06 04:34:00 Test Item Value Reference Range Interpretation Comments PTT (test code = PTT) 31.2 s 22.9-35.8 [place] [address]-12-06 04:34:00 Test Item Value Reference Range Interpretation Comments Segs (test code = Segs) 73.9 45.0-75.0 [place] [address]-12-06 04:34:00 Test Item Value Reference Range Interpretation Comments Lymphocytes (test code = Lymphocytes) 11.0 20.0-40.0 [place] [address]-12-06 04:34:00 Test Item Value Reference Range Interpretation Comments Monocytes (test code = Monocytes) 13.6 2.0-12.0 [place] [address]-12-06 04:34:00 Test Item Value Reference Range Interpretation Comments Eosinophils (test code = 0.7 See_Comment [A utomated message] The Eosinophils) system which ge nerated this result tra nsmitted reference range : <=4.0. The reference r christiano was not used to int erpret this result as normal/abnormal . [facility] CenterNqsumufHREAGZQECZ0511-12-47 04:34:00 Test Item Value Reference Range Interpretation Comments Basophils (test code = 0.8 See_Comment [Aut omated message] The Basophils) system which ge nerated this result tra nsmitted reference range : <=1.0. The reference r christiano was not used to int erpret this result as normal/abnormal . [facility] SaultMlvwjlqLXQWDBKRHN4063-11-91 04:34:00 Test Item Value Reference Range Interpretation Comments Neutrophils # (test code = Neutrophils 7.2 1.5-8.1 #) [facility] SaultRftgjthNDNPDUZZPF0349-21-06 04:34:00 Test Item Value Reference Range Interpretation Comments Lymphocytes # (test code = Lymphocytes 1.1 1.0-5.5 #) [facility] SaultIaxwmwnRIMEFBAYDW2588-81-33 04:34:00 Test Item Value Reference Range Interpretation Comments Monocytes # (test code 1.3 See_Comment [Aut omated message] The = Monocytes #) system which generated this result tra nsmitted reference range : <=0.8. The reference r christiano was not used to int erpret this result as normal/abnormal . [facility] [id number] 04:34:00 Test Item Value Reference Range Interpretation Comments Troponin-I (test code no gt See_Comment [Auto mated message] The = Troponin-I) system which g enerated this result transmit sheba reference range : <=0.40. The reference r christiano was not used to interpr et this result as edy l/abnormal. [facility] CenterPtasuhdHLHSPBBIMP3526-75-11 04:34:00 Test Item Value Reference Range Interpretation Comments Eosinophils # (test code 0.1 See_Comment [A utomated message] The = Eosinophils #) system whic h generated this result tra nsmitted reference range : <=0.5. The reference r christiano was not used to int erpret this result as normal/abnormal . [facility] CenterCHEM [id number] 04:34:00 Test Item Value Reference Range Interpretation Comments Glucose Lvl (test code = Glucose Lvl) 125 70-99 [place] [address]-12-06 04:34:00 Test Item Value Reference Range Interpretation Comments BUN (test code = BUN) 17 7-22 [place] [address]-12-06 04:34:00 Test Item Value Reference Range Interpretation Comments Creatinine Lvl (test code = Creatinine 1.51 0.50-1.40 Lvl) [place] [address]-12-06 04:34:00 Test Item Value Reference Range Interpretation Comments Sodium Lvl (test code = Sodium Lvl) 142 135-145 [place] [address]-12-06 04:34:00 Test Item Value Reference Range Interpretation Comments Potassium Lvl (test code = Potassium 4.0 3.5-5.1 Lvl) [place] [address]-12-06 04:34:00 Test Item Value Reference Range Interpretation Comments Chloride Lvl (test code = Chloride Lvl) 108 95-109 [place] [address]-12-06 04:34:00 Test Item Value Reference Range Interpretation Comments CO2 (test code = CO2) 30 24-32 [place] [address]-12-06 04:34:00 Test Item Value Reference Range Interpretation Comments Calcium Lvl (test code = Calcium Lvl) 7.8 8.5-10.5 [place] [address]-12-06 04:34:00 Test Item Value Reference Range Interpretation Comments AGAP (test code = AGAP) 8.0 10.0-20.0 [place] [address]-12-06 04:34:00 Test Item Value Reference Range Interpretation Comments eGFR (test code = eGFR) 33 [place] [address]-12-06 04:34:00 Test Item Value Reference Range Interpretation Comments Basophils # (test code 0.1 See_Comment [Aut omated message] The = Basophils #) system which generated this result tra nsmitted reference range : <=0.2. The reference r christiano was not used to int erpret this result as normal/abnormal . [place] [address]-12-06 04:34:00 Test Item Value Reference Range Interpretation Comments WBC X 10x3 (test code = WBC X 10x3) 9.7 3.7-10.4 [place] [address]-12-06 04:34:00 Test Item Value Reference Range Interpretation Comments RBC X 10x6 (test code = RBC X 10x6) 3.96 4.20-5.40 [facility] McAllenBpfrjfiGHCRGBECNV1983-71-49 04:34:00 Test Item Value Reference Range Interpretation Comments Hgb (test code = Hgb) 10.6 12.0-16.0 [place] [address]-12-06 04:34:00 Test Item Value Reference Range Interpretation Comments Hct (test code = Hct) 32.6 36.0-48.0 [place] 391170-12-06 04:34:00 Test Item Value Reference Range Interpretation Comments MCV (test code = MCV) 82.3 80.0-98.0 [place] 391170-12-06 04:34:00 Test Item Value Reference Range Interpretation Comments MCH (test code = MCH) 26.6 pg 27.0-31.0 [facility] McAllenQvlmlbvBYQOFOGJIH7538-50-35 04:34:00 Test Item Value Reference Range Interpretation Comments MCHC (test code = MCHC) 32.4 32.0-36.0 [place] 391170-12-06 04:34:00 Test Item Value Reference Range Interpretation Comments RDW (test code = RDW) 16.8 11.5-14.5 [facility] McAllenXzkpjvjQZOSJJPLVX6942-07-99 04:34:00 Test Item Value Reference Range Interpretation Comments Platelet (test code = Platelet) 178 133-450 [facility] McAllenPauyefeXRIORIVZHZ2913-14-26 04:34:00 Test Item Value Reference Range Interpretation Comments MPV (test code = MPV) 8.0 7.4-10.4 [place] 391170-12-06 04:34:00 Test Item Value Reference Range Interpretation Comments PT (test code = PT) 14.7 s 12.0-14.7 [place] [address]-12-06 04:34:00 Test Item Value Reference Range Interpretation Comments INR (test code = INR) 1.14 1 0.85-1.17 [place] 391170-12-06 04:34:00 Test Item Value Reference Range Interpretation Comments PTT (test code = PTT) 31.2 s 22.9-35.8 [place] 391170-12-06 04:34:00 Test Item Value Reference Range Interpretation Comments Segs (test code = Segs) 73.9 45.0-75.0 [place] 391170-12-06 04:34:00 Test Item Value Reference Range Interpretation Comments Lymphocytes (test code = Lymphocytes) 11.0 20.0-40.0 [place] 391170-12-06 04:34:00 Test Item Value Reference Range Interpretation Comments Monocytes (test code = Monocytes) 13.6 2.0-12.0 [place] 391170-12-06 04:34:00 Test Item Value Reference Range Interpretation Comments Eosinophils (test code = 0.7 See_Comment [A utomated message] The Eosinophils) system which ge nerated this result tra nsmitted reference range : <=4.0. The reference r christiano was not used to int erpret this result as normal/abnormal . [place] 391170-12-06 04:34:00 Test Item Value Reference Range Interpretation Comments Basophils (test code = 0.8 See_Comment [Aut omated message] The Basophils) system which ge nerated this result tra nsmitted reference range : <=1.0. The reference r christiano was not used to int erpret this result as normal/abnormal . [facility] McAllenDwqzxlrZWLOWEDTGW3257-17-63 04:34:00 Test Item Value Reference Range Interpretation Comments Neutrophils # (test code = Neutrophils 7.2 1.5-8.1 #) [place] 391170-12-06 04:34:00 Test Item Value Reference Range Interpretation Comments Lymphocytes # (test code = Lymphocytes 1.1 1.0-5.5 #) [place] 391170-12-06 04:34:00 Test Item Value Reference Range Interpretation Comments Monocytes # (test code 1.3 See_Comment [Aut omated message] The = Monocytes #) system which generated this result tra nsmitted reference range : <=0.8. The reference r christiano was not used to int erpret this result as normal/abnormal . [place] 391170-12-06 04:34:00 Test Item Value Reference Range Interpretation Comments Eosinophils # (test code 0.1 See_Comment [A utomated message] The = Eosinophils #) system ic h generated this result tra nsmitted reference range : <=0.5. The reference r christiano was not used to int erpret this result as normal/abnormal . [facility] CenterAfcudcbZRYEBXLOFL6255-92-91 04:34:00 Test Item Value Reference Range Interpretation Comments Basophils # (test code 0.1 See_Comment [Aut omated message] The = Basophils #) system which generated this result tra nsmitted reference range : <=0.2. The reference r christiano was not used to int erpret this result as normal/abnormal . [facility] [id number] 04:34:00 Test Item Value Reference Range Interpretation Comments Troponin-I (test code no gt See_Comment [Auto mated message] The = Troponin-I) system which g enerated this result transmit sheba reference range : <=0.40. The reference r christiano was not used to interpr et this result as edy l/abnormal. [facility] [id number] 04:34:00 Test Item Value Reference Range Interpretation Comments Glucose Lvl (test code = Glucose Lvl) 125 70-99 [facility] [id number] 04:34:00 Test Item Value Reference Range Interpretation Comments BUN (test code = BUN) 17 7-22 [facility] [id number] 04:34:00 Test Item Value Reference Range Interpretation Comments Creatinine Lvl (test code = Creatinine 1.51 0.50-1.40 Lvl) [facility] [id number] 04:34:00 Test Item Value Reference Range Interpretation Comments Sodium Lvl (test code = Sodium Lvl) 142 135-145 [facility] [id number] 04:34:00 Test Item Value Reference Range Interpretation Comments Potassium Lvl (test code = Potassium 4.0 3.5-5.1 Lvl) [facility] [id number] 04:34:00 Test Item Value Reference Range Interpretation Comments Chloride Lvl (test code = Chloride Lvl) 108 95-109 [facility] [id number] 04:34:00 Test Item Value Reference Range Interpretation Comments CO2 (test code = CO2) 30 24-32 [facility] [id number] 04:34:00 Test Item Value Reference Range Interpretation Comments Calcium Lvl (test code = Calcium Lvl) 7.8 8.5-10.5 [facility] FPMOR4927-55-09 04:34:00 Test Item Value Reference Range Interpretation Comments AGAP (test code = AGAP) 8.0 10.0-20.0 [facility]2020-12-06 04:34:00 Test Item Value Reference Range Interpretation Comments eGFR (test code = eGFR) 33 [facility] McAllenPfrcfxvNHVRHYJTPR7800-18-01 04:34:00 Test Item Value Reference Range Interpretation Comments WBC X 10x3 (test code = WBC X 10x3) 9.7 3.7-10.4 [facility] McAllenHhemflcNAGWRIXPZK0227-07-77 04:34:00 Test Item Value Reference Range Interpretation Comments RBC X 10x6 (test code = RBC X 10x6) 3.96 4.20-5.40 [place] 391170-12-06 04:34:00 Test Item Value Reference Range Interpretation Comments Hgb (test code = Hgb) 10.6 12.0-16.0 [facility] McAllenTjfuupcHMNDZCVOBY7271-04-57 04:34:00 Test Item Value Reference Range Interpretation Comments Hct (test code = Hct) 32.6 36.0-48.0 [facility] McAllenDrszsqbPIYEYGSOQA5415-17-96 04:34:00 Test Item Value Reference Range Interpretation Comments MCV (test code = MCV) 82.3 80.0-98.0 [facility] McAllenWtegsajUAPBNOYXMN1722-21-80 04:34:00 Test Item Value Reference Range Interpretation Comments MCH (test code = MCH) 26.6 pg 27.0-31.0 [facility] McAllenKefkqkvYQRCTVZTVY4205-63-14 04:34:00 Test Item Value Reference Range Interpretation Comments MCHC (test code = MCHC) 32.4 32.0-36.0 [facility] McAllenMswhwhlXCULBFTBAK3258-20-80 04:34:00 Test Item Value Reference Range Interpretation Comments RDW (test code = RDW) 16.8 11.5-14.5 [place] [address]-12-06 04:34:00 Test Item Value Reference Range Interpretation Comments Platelet (test code = Platelet) 178 133-450 [facility] McAllenWyserawSPNNDWOYUX9018-39-41 04:34:00 Test Item Value Reference Range Interpretation Comments MPV (test code = MPV) 8.0 7.4-10.4 [facility] McAllenQtkwjclREIKWLUXJI4699-04-41 04:34:00 Test Item Value Reference Range Interpretation Comments PT (test code = PT) 14.7 s 12.0-14.7 [place] 391170-12-06 04:34:00 Test Item Value Reference Range Interpretation Comments INR (test code = INR) 1.14 1 0.85-1.17 [place] 391170-12-06 04:34:00 Test Item Value Reference Range Interpretation Comments PTT (test code = PTT) 31.2 s 22.9-35.8 [place] 391170-12-06 04:34:00 Test Item Value Reference Range Interpretation Comments Segs (test code = Segs) 73.9 45.0-75.0 [place] [address]-12-06 04:34:00 Test Item Value Reference Range Interpretation Comments Lymphocytes (test code = Lymphocytes) 11.0 20.0-40.0 [place] [address]-12-06 04:34:00 Test Item Value Reference Range Interpretation Comments Monocytes (test code = Monocytes) 13.6 2.0-12.0 [place] [address]-12-06 04:34:00 Test Item Value Reference Range Interpretation Comments Eosinophils (test code = 0.7 See_Comment [A utomated message] The Eosinophils) system which ge nerated this result tra nsmitted reference range : <=4.0. The reference r christiano was not used to int erpret this result as normal/abnormal . [facility] [id number] 04:34:00 Test Item Value Reference Range Interpretation Comments Basophils (test code = 0.8 See_Comment [Aut omated message] The Basophils) system which ge nerated this result tra nsmitted reference range : <=1.0. The reference r christiano was not used to int erpret this result as normal/abnormal . [place] 391170-12-06 04:34:00 Test Item Value Reference Range Interpretation Comments Neutrophils # (test code = Neutrophils 7.2 1.5-8.1 #) [place] [address]-12-06 04:34:00 Test Item Value Reference Range Interpretation Comments Lymphocytes # (test code = Lymphocytes 1.1 1.0-5.5 #) [place] 391170-12-06 04:34:00 Test Item Value Reference Range Interpretation Comments Monocytes # (test code 1.3 See_Comment [Aut omated message] The = Monocytes #) system which generated this result tra nsmitted reference range : <=0.8. The reference r christiano was not used to int erpret this result as normal/abnormal . [facility]aultSjkwxopEZOXHTWOZS9584-80-30 04:34:00 Test Item Value Reference Range Interpretation Comments Eosinophils # (test code 0.1 See_Comment [A utomated message] The = Eosinophils #) system whic h generated this result tra nsmitted reference range : <=0.5. The reference r christiano was not used to int erpret this result as normal/abnormal . [facility] SaultWnjrybbISWRFBVPIV4145-44-65 04:34:00 Test Item Value Reference Range Interpretation Comments Basophils # (test code 0.1 See_Comment [Aut omated message] The = Basophils #) system which generated this result tra nsmitted reference range : <=0.2. The reference r christiano was not used to int erpret this result as normal/abnormal . [facility] [id number] 04:34:00 Test Item Value Reference Range Interpretation Comments Troponin-I (test code no gt See_Comment [Auto mated message] The = Troponin-I) system which g enerated this result transmit sheba reference range : <=0.40. The reference r christiano was not used to interpr et this result as edy l/abnormal. [facility] [id number] 04:34:00 Test Item Value Reference Range Interpretation Comments Glucose Lvl (test code = Glucose Lvl) 125 70-99 [facility] [id number] 04:34:00 Test Item Value Reference Range Interpretation Comments BUN (test code = BUN) 17 7-22 [facility] [id number] 04:34:00 Test Item Value Reference Range Interpretation Comments Creatinine Lvl (test code = Creatinine 1.51 0.50-1.40 Lvl) [facility] [id number] 04:34:00 Test Item Value Reference Range Interpretation Comments Sodium Lvl (test code = Sodium Lvl) 142 135-145 [facility] [id number] 04:34:00 Test Item Value Reference Range Interpretation Comments Potassium Lvl (test code = Potassium 4.0 3.5-5.1 Lvl) [place] 468410-12-06 04:34:00 Test Item Value Reference Range Interpretation Comments Chloride Lvl (test code = Chloride Lvl) 108 95-109 [place] 468410-12-06 04:34:00 Test Item Value Reference Range Interpretation Comments CO2 (test code = CO2) 30 24-32 [place] 468410-12-06 04:34:00 Test Item Value Reference Range Interpretation Comments Calcium Lvl (test code = Calcium Lvl) 7.8 8.5-10.5 [place] 468410-12-06 04:34:00 Test Item Value Reference Range Interpretation Comments AGAP (test code = AGAP) 8.0 10.0-20.0 [place] 468410-12-06 04:34:00 Test Item Value Reference Range Interpretation Comments eGFR (test code = eGFR) 33 [place] 391170-12-06 04:34:00 Test Item Value Reference Range Interpretation Comments WBC X 10x3 (test code = WBC X 10x3) 9.7 3.7-10.4 [place] 391170-12-06 04:34:00 Test Item Value Reference Range Interpretation Comments RBC X 10x6 (test code = RBC X 10x6) 3.96 4.20-5.40 [place] 391170-12-06 04:34:00 Test Item Value Reference Range Interpretation Comments Hgb (test code = Hgb) 10.6 12.0-16.0 [place] [address]-12-06 04:34:00 Test Item Value Reference Range Interpretation Comments Hct (test code = Hct) 32.6 36.0-48.0 [place] 391170-12-06 04:34:00 Test Item Value Reference Range Interpretation Comments MCV (test code = MCV) 82.3 80.0-98.0 [place] [address]-12-06 04:34:00 Test Item Value Reference Range Interpretation Comments MCH (test code = MCH) 26.6 pg 27.0-31.0 [place] [address]-12-06 04:34:00 Test Item Value Reference Range Interpretation Comments MCHC (test code = MCHC) 32.4 32.0-36.0 [place] [address]-12-06 04:34:00 Test Item Value Reference Range Interpretation Comments RDW (test code = RDW) 16.8 11.5-14.5 [place] [address]-12-06 04:34:00 Test Item Value Reference Range Interpretation Comments Platelet (test code = Platelet) 178 133-450 [place] [address]-12-06 04:34:00 Test Item Value Reference Range Interpretation Comments MPV (test code = MPV) 8.0 7.4-10.4 [place] [address]-12-06 04:34:00 Test Item Value Reference Range Interpretation Comments PT (test code = PT) 14.7 s 12.0-14.7 [place] [address]-12-06 04:34:00 Test Item Value Reference Range Interpretation Comments INR (test code = INR) 1.14 1 0.85-1.17 [place] [address]-12-06 04:34:00 Test Item Value Reference Range Interpretation Comments PTT (test code = PTT) 31.2 s 22.9-35.8 [place] [address]-12-06 04:34:00 Test Item Value Reference Range Interpretation Comments Segs (test code = Segs) 73.9 45.0-75.0 [place] [address]-12-06 04:34:00 Test Item Value Reference Range Interpretation Comments Lymphocytes (test code = Lymphocytes) 11.0 20.0-40.0 [place] [address]-12-06 04:34:00 Test Item Value Reference Range Interpretation Comments Monocytes (test code = Monocytes) 13.6 2.0-12.0 [place] [address]-12-06 04:34:00 Test Item Value Reference Range Interpretation Comments Eosinophils (test code = 0.7 See_Comment [A utomated message] The Eosinophils) system which ge nerated this result tra nsmitted reference range : <=4.0. The reference r christiano was not used to int erpret this result as normal/abnormal . [place] [address]-12-06 04:34:00 Test Item Value Reference Range Interpretation Comments Basophils (test code = 0.8 See_Comment [Aut omated message] The Basophils) system which ge nerated this result tra nsmitted reference range : <=1.0. The reference r christiano was not used to int erpret this result as normal/abnormal . [facility] SaultNkwnkdsOJTJBXOXAY2289-27-67 04:34:00 Test Item Value Reference Range Interpretation Comments Neutrophils # (test code = Neutrophils 7.2 1.5-8.1 #) [facility] SaultSbcvuggWDYGMZEAQL9795-83-74 04:34:00 Test Item Value Reference Range Interpretation Comments Lymphocytes # (test code = Lymphocytes 1.1 1.0-5.5 #) [facility] McAllenUbpbarsLAGGQBQOSR1663-63-37 04:34:00 Test Item Value Reference Range Interpretation Comments Monocytes # (test code 1.3 See_Comment [Aut omated message] The = Monocytes #) system which generated this result tra nsmitted reference range : <=0.8. The reference r christiano was not used to int erpret this result as normal/abnormal . [facility] McAllenWiuobaxAXNSURXWPN5359-34-77 04:34:00 Test Item Value Reference Range Interpretation Comments Eosinophils # (test code 0.1 See_Comment [A utomated message] The = Eosinophils #) system whic h generated this result tra nsmitted reference range : <=0.5. The reference r christiano was not used to int erpret this result as normal/abnormal . [facility] McAllenTthmsveJYLUHQDMTM6394-42-94 04:34:00 Test Item Value Reference Range Interpretation Comments Basophils # (test code 0.1 See_Comment [Aut omated message] The = Basophils #) system which generated this result tra nsmitted reference range : <=0.2. The reference r christiano was not used to int erpret this result as normal/abnormal . [facility] [id number] 04:34:00 Test Item Value Reference Range Interpretation Comments Troponin-I (test code no gt See_Comment [Auto mated message] The = Troponin-I) system which g enerated this result transmit sheba reference range : <=0.40. The reference r christiano was not used to interpr et this result as edy l/abnormal. [facility] [id number] 04:34:00 Test Item Value Reference Range Interpretation Comments Glucose Lvl (test code = Glucose Lvl) 125 70-99 [facility] [id number] 04:34:00 Test Item Value Reference Range Interpretation Comments BUN (test code = BUN) 17 7-22 [place] 468410-12-06 04:34:00 Test Item Value Reference Range Interpretation Comments Creatinine Lvl (test code = Creatinine 1.51 0.50-1.40 Lvl) [place] 468410-12-06 04:34:00 Test Item Value Reference Range Interpretation Comments Sodium Lvl (test code = Sodium Lvl) 142 135-145 [place] 468410-12-06 04:34:00 Test Item Value Reference Range Interpretation Comments Potassium Lvl (test code = Potassium 4.0 3.5-5.1 Lvl) [place] 468410-12-06 04:34:00 Test Item Value Reference Range Interpretation Comments Chloride Lvl (test code = Chloride Lvl) 108 95-109 [place] 468410-12-06 04:34:00 Test Item Value Reference Range Interpretation Comments CO2 (test code = CO2) 30 24-32 [place] 468410-12-06 04:34:00 Test Item Value Reference Range Interpretation Comments Calcium Lvl (test code = Calcium Lvl) 7.8 8.5-10.5 [place] 468410-12-06 04:34:00 Test Item Value Reference Range Interpretation Comments AGAP (test code = AGAP) 8.0 10.0-20.0 [place] 468410-12-06 04:34:00 Test Item Value Reference Range Interpretation Comments eGFR (test code = eGFR) 33 [place] [address]-12-06 04:34:00 Test Item Value Reference Range Interpretation Comments WBC X 10x3 (test code = WBC X 10x3) 9.7 3.7-10.4 [place] 391170-12-06 04:34:00 Test Item Value Reference Range Interpretation Comments RBC X 10x6 (test code = RBC X 10x6) 3.96 4.20-5.40 [place] [address]-12-06 04:34:00 Test Item Value Reference Range Interpretation Comments Hgb (test code = Hgb) 10.6 12.0-16.0 [place] [address]-12-06 04:34:00 Test Item Value Reference Range Interpretation Comments Hct (test code = Hct) 32.6 36.0-48.0 [place] 391170-12-06 04:34:00 Test Item Value Reference Range Interpretation Comments MCV (test code = MCV) 82.3 80.0-98.0 [place] 391170-12-06 04:34:00 Test Item Value Reference Range Interpretation Comments MCH (test code = MCH) 26.6 pg 27.0-31.0 [place] 391170-12-06 04:34:00 Test Item Value Reference Range Interpretation Comments MCHC (test code = MCHC) 32.4 32.0-36.0 [facility] McAllenFiaqszeRLNFLVWTYV3004-87-66 04:34:00 Test Item Value Reference Range Interpretation Comments RDW (test code = RDW) 16.8 11.5-14.5 [place] 391170-12-06 04:34:00 Test Item Value Reference Range Interpretation Comments Platelet (test code = Platelet) 178 133-450 [facility] McAllenBlfzobtOWSQCRTFYX8675-48-34 04:34:00 Test Item Value Reference Range Interpretation Comments MPV (test code = MPV) 8.0 7.4-10.4 [facility] McAllenNeupxavNRAZYJJVRF3222-13-24 04:34:00 Test Item Value Reference Range Interpretation Comments PT (test code = PT) 14.7 s 12.0-14.7 [place] 391170-12-06 04:34:00 Test Item Value Reference Range Interpretation Comments INR (test code = INR) 1.14 1 0.85-1.17 [place] 391170-12-06 04:34:00 Test Item Value Reference Range Interpretation Comments PTT (test code = PTT) 31.2 s 22.9-35.8 [place] 391170-12-06 04:34:00 Test Item Value Reference Range Interpretation Comments Segs (test code = Segs) 73.9 45.0-75.0 [place] 391170-12-06 04:34:00 Test Item Value Reference Range Interpretation Comments Lymphocytes (test code = Lymphocytes) 11.0 20.0-40.0 [place] 391170-12-06 04:34:00 Test Item Value Reference Range Interpretation Comments Monocytes (test code = Monocytes) 13.6 2.0-12.0 [place] 391170-12-06 04:34:00 Test Item Value Reference Range Interpretation Comments Eosinophils (test code = 0.7 See_Comment [A utomated message] The Eosinophils) system which ge nerated this result tra nsmitted reference range : <=4.0. The reference r chirstiano was not used to int erpret this result as normal/abnormal . [facility] McAllenTcrhgxeHECYJEECZK7918-69-03 04:34:00 Test Item Value Reference Range Interpretation Comments Basophils (test code = 0.8 See_Comment [Aut omated message] The Basophils) system which ge nerated this result tra nsmitted reference range : <=1.0. The reference r christiano was not used to int erpret this result as normal/abnormal . [facility] McAllenAwtyybbLTRHHWRLZB5285-03-06 04:34:00 Test Item Value Reference Range Interpretation Comments Neutrophils # (test code = Neutrophils 7.2 1.5-8.1 #) [facility] McAllenZkbzlamLNTJLJFUFX4558-06-65 04:34:00 Test Item Value Reference Range Interpretation Comments Lymphocytes # (test code = Lymphocytes 1.1 1.0-5.5 #) [facility] McAllenVkryqvlNAMCTZCGGC6118-40-33 04:34:00 Test Item Value Reference Range Interpretation Comments Monocytes # (test code 1.3 See_Comment [Aut omated message] The = Monocytes #) system which generated this result tra nsmitted reference range : <=0.8. The reference r christiano was not used to int erpret this result as normal/abnormal . [facility] McAllenLtmgmojJWKOHVCOZM1192-44-99 04:34:00 Test Item Value Reference Range Interpretation Comments Eosinophils # (test code 0.1 See_Comment [A utomated message] The = Eosinophils #) system [facility] h generated this result tra nsmitted reference range : <=0.5. The reference r christiano was not used to int erpret this result as normal/abnormal . [facility] McAllenIozxlvxLROALEPIQF3049-27-04 04:34:00 Test Item Value Reference Range Interpretation Comments Basophils # (test code 0.1 See_Comment [Aut omated message] The = Basophils #) system which generated this result tra nsmitted reference range : <=0.2. The reference r christiano was not used to int erpret this result as normal/abnormal . [facility] [id number] 04:34:00 Test Item Value Reference Range Interpretation Comments Troponin-I (test code no gt See_Comment [Auto mated message] The = Troponin-I) system which g enerated this result transmit sheba reference range : <=0.40. The reference r christiano was not used to interpr et this result as edy l/abnormal. [facility]-06 04:34:00 Test Item Value Reference Range Interpretation Comments Glucose Lvl (test code = Glucose Lvl) 125 70-99 [place] 468410-12-06 04:34:00 Test Item Value Reference Range Interpretation Comments BUN (test code = BUN) 17 7-22 [place] [address]-12-06 04:34:00 Test Item Value Reference Range Interpretation Comments Creatinine Lvl (test code = Creatinine 1.51 0.50-1.40 Lvl) [place] 468410-12-06 04:34:00 Test Item Value Reference Range Interpretation Comments Sodium Lvl (test code = Sodium Lvl) 142 135-145 [place] 468410-12-06 04:34:00 Test Item Value Reference Range Interpretation Comments Potassium Lvl (test code = Potassium 4.0 3.5-5.1 Lvl) [place] 468410-12-06 04:34:00 Test Item Value Reference Range Interpretation Comments Chloride Lvl (test code = Chloride Lvl) 108 95-109 [place] 468410-12-06 04:34:00 Test Item Value Reference Range Interpretation Comments CO2 (test code = CO2) 30 24-32 [place] 468410-12-06 04:34:00 Test Item Value Reference Range Interpretation Comments Calcium Lvl (test code = Calcium Lvl) 7.8 8.5-10.5 [place] 468410-12-06 04:34:00 Test Item Value Reference Range Interpretation Comments AGAP (test code = AGAP) 8.0 10.0-20.0 [place] 468410-12-06 04:34:00 Test Item Value Reference Range Interpretation Comments eGFR (test code = eGFR) 33 [place] 391170-12-06 04:34:00 Test Item Value Reference Range Interpretation Comments WBC X 10x3 (test code = WBC X 10x3) 9.7 3.7-10.4 [place] 391170-12-06 04:34:00 Test Item Value Reference Range Interpretation Comments RBC X 10x6 (test code = RBC X 10x6) 3.96 4.20-5.40 [facility] McAllenFbrcerkUYMDHJMBXY6518-25-44 04:34:00 Test Item Value Reference Range Interpretation Comments Hgb (test code = Hgb) 10.6 12.0-16.0 [facility] McAllenMngbwqiMZPSAMXRQQ7794-66-34 04:34:00 Test Item Value Reference Range Interpretation Comments Hct (test code = Hct) 32.6 36.0-48.0 [facility] McAllenOgpnsioGLIUMCESNF9084-76-90 04:34:00 Test Item Value Reference Range Interpretation Comments MCV (test code = MCV) 82.3 80.0-98.0 [facility] McAllenSotzhuyZOVZECVXTO2611-08-00 04:34:00 Test Item Value Reference Range Interpretation Comments MCH (test code = MCH) 26.6 pg 27.0-31.0 [facility] McAllenFaxeizsFAMMOGLTRK6002-21-32 04:34:00 Test Item Value Reference Range Interpretation Comments MCHC (test code = MCHC) 32.4 32.0-36.0 [facility] McAllenYxdrczyMGYBVEVBNL0113-35-02 04:34:00 Test Item Value Reference Range Interpretation Comments RDW (test code = RDW) 16.8 11.5-14.5 [facility] McAllenRuscdeuSLPAPUGKOW3848-40-40 04:34:00 Test Item Value Reference Range Interpretation Comments Platelet (test code = Platelet) 178 133-450 [facility] McAllenKnstyrnJHXLSBHFHL1164-56-05 04:34:00 Test Item Value Reference Range Interpretation Comments MPV (test code = MPV) 8.0 7.4-10.4 [facility] McAllenDugoszlUPJNZQPIWO0323-70-69 04:34:00 Test Item Value Reference Range Interpretation Comments PT (test code = PT) 14.7 s 12.0-14.7 [place] [address]-12-06 04:34:00 Test Item Value Reference Range Interpretation Comments INR (test code = INR) 1.14 1 0.85-1.17 [place] 391170-12-06 04:34:00 Test Item Value Reference Range Interpretation Comments PTT (test code = PTT) 31.2 s 22.9-35.8 [place] 391170-12-06 04:34:00 Test Item Value Reference Range Interpretation Comments Segs (test code = Segs) 73.9 45.0-75.0 [place] [address]-12-06 04:34:00 Test Item Value Reference Range Interpretation Comments Lymphocytes (test code = Lymphocytes) 11.0 20.0-40.0 [place] [address]-12-06 04:34:00 Test Item Value Reference Range Interpretation Comments Monocytes (test code = Monocytes) 13.6 2.0-12.0 [place] [address]-12-06 04:34:00 Test Item Value Reference Range Interpretation Comments Eosinophils (test code = 0.7 See_Comment [A utomated message] The Eosinophils) system which ge nerated this result tra nsmitted reference range : <=4.0. The reference r christiano was not used to int erpret this result as normal/abnormal . [place] [address]-12-06 04:34:00 Test Item Value Reference Range Interpretation Comments Basophils (test code = 0.8 See_Comment [Aut omated message] The Basophils) system which ge nerated this result tra nsmitted reference range : <=1.0. The reference r christiano was not used to int erpret this result as normal/abnormal . [place] 391170-12-06 04:34:00 Test Item Value Reference Range Interpretation Comments Neutrophils # (test code = Neutrophils 7.2 1.5-8.1 #) [place] [address]-12-06 04:34:00 Test Item Value Reference Range Interpretation Comments Lymphocytes # (test code = Lymphocytes 1.1 1.0-5.5 #) [place] [address]-12-06 04:34:00 Test Item Value Reference Range Interpretation Comments Monocytes # (test code 1.3 See_Comment [Aut omated message] The = Monocytes #) system which generated this result tra nsmitted reference range : <=0.8. The reference r christiano was not used to int erpret this result as normal/abnormal . [place] [address]-12-06 04:34:00 Test Item Value Reference Range Interpretation Comments Eosinophils # (test code 0.1 See_Comment [A utomated message] The = Eosinophils #) system ic h generated this result tra nsmitted reference range : <=0.5. The reference r christiano was not used to int erpret this result as normal/abnormal . [facility] CenterDvkjedcWRXCNGTPMV0720-94-95 04:34:00 Test Item Value Reference Range Interpretation Comments Basophils # (test code 0.1 See_Comment [Aut omated message] The = Basophils #) system which generated this result tra nsmitted reference range : <=0.2. The reference r christiano was not used to int erpret this result as normal/abnormal . [facility]CARD[facility] [id number] 04:34:00 Test Item Value Reference Range Interpretation Comments Troponin-I (test code no gt See_Comment [Auto mated message] The = Troponin-I) system which g enerated this result transmit sheba reference range : <=0.40. The reference r christiano was not used to interpr et this result as edy l/abnormal. [facility] [id number] 04:34:00 Test Item Value Reference Range Interpretation Comments Glucose Lvl (test code = Glucose Lvl) 125 70-99 [facility] [id number] 04:34:00 Test Item Value Reference Range Interpretation Comments BUN (test code = BUN) 17 7-22 [facility] [id number] 04:34:00 Test Item Value Reference Range Interpretation Comments Creatinine Lvl (test code = Creatinine 1.51 0.50-1.40 Lvl) [facility] [id number] 04:34:00 Test Item Value Reference Range Interpretation Comments Sodium Lvl (test code = Sodium Lvl) 142 135-145 [facility] [id number] 04:34:00 Test Item Value Reference Range Interpretation Comments Potassium Lvl (test code = Potassium 4.0 3.5-5.1 Lvl) [facility] [id number] 04:34:00 Test Item Value Reference Range Interpretation Comments Chloride Lvl (test code = Chloride Lvl) 108 95-109 [facility] [id number] 04:34:00 Test Item Value Reference Range Interpretation Comments CO2 (test code = CO2) 30 24-32 [facility] [id number] 04:34:00 Test Item Value Reference Range Interpretation Comments Calcium Lvl (test code = Calcium Lvl) 7.8 8.5-10.5 [facility] [id number] 04:34:00 Test Item Value Reference Range Interpretation Comments AGAP (test code = AGAP) 8.0 10.0-20.0 [facility] [id number] 04:34:00 Test Item Value Reference Range Interpretation Comments eGFR (test code = eGFR) 33 [facility] CenterRxtgxqsYCZPOKYYCB8518-41-58 04:34:00 Test Item Value Reference Range Interpretation Comments WBC X 10x3 (test code = WBC X 10x3) 9.7 3.7-10.4 [facility] McAllenTjjccodYJICAWNKBB6313-67-61 04:34:00 Test Item Value Reference Range Interpretation Comments RBC X 10x6 (test code = RBC X 10x6) 3.96 4.20-5.40 [place] 391170-12-06 04:34:00 Test Item Value Reference Range Interpretation Comments Hgb (test code = Hgb) 10.6 12.0-16.0 [facility] McAllenBphzemwAQWZQLOGXM2821-02-27 04:34:00 Test Item Value Reference Range Interpretation Comments Hct (test code = Hct) 32.6 36.0-48.0 [facility] McAllenZnmgokyIASXBAMMDN4626-79-40 04:34:00 Test Item Value Reference Range Interpretation Comments MCV (test code = MCV) 82.3 80.0-98.0 [facility] McAllenUezyiweQVJEAJEKYB1969-20-06 04:34:00 Test Item Value Reference Range Interpretation Comments MCH (test code = MCH) 26.6 pg 27.0-31.0 [facility] McAllenWikpspeKRWXECRGUE0526-26-49 04:34:00 Test Item Value Reference Range Interpretation Comments MCHC (test code = MCHC) 32.4 32.0-36.0 [facility] McAllenDqhbuamFQYUWDKXVF8027-79-58 04:34:00 Test Item Value Reference Range Interpretation Comments RDW (test code = RDW) 16.8 11.5-14.5 [place] 391170-12-06 04:34:00 Test Item Value Reference Range Interpretation Comments Platelet (test code = Platelet) 178 133-450 [facility] McAllenVsiuouwKPYQYFJMCR8622-56-79 04:34:00 Test Item Value Reference Range Interpretation Comments MPV (test code = MPV) 8.0 7.4-10.4 [facility] McAllenCsbmpgfBYBIVNSGVC9454-21-06 04:34:00 Test Item Value Reference Range Interpretation Comments PT (test code = PT) 14.7 s 12.0-14.7 [place] [address]-12-06 04:34:00 Test Item Value Reference Range Interpretation Comments INR (test code = INR) 1.14 1 0.85-1.17 [place] [address]-12-06 04:34:00 Test Item Value Reference Range Interpretation Comments PTT (test code = PTT) 31.2 s 22.9-35.8 [place] [address]-12-06 04:34:00 Test Item Value Reference Range Interpretation Comments Segs (test code = Segs) 73.9 45.0-75.0 [place] [address]-12-06 04:34:00 Test Item Value Reference Range Interpretation Comments Lymphocytes (test code = Lymphocytes) 11.0 20.0-40.0 [place] [address]-12-06 04:34:00 Test Item Value Reference Range Interpretation Comments Monocytes (test code = Monocytes) 13.6 2.0-12.0 [place] [address]-12-06 04:34:00 Test Item Value Reference Range Interpretation Comments Eosinophils (test code = 0.7 See_Comment [A utomated message] The Eosinophils) system which ge nerated this result tra nsmitted reference range : <=4.0. The reference r christiano was not used to int erpret this result as normal/abnormal . [place] [address]-12-06 04:34:00 Test Item Value Reference Range Interpretation Comments Basophils (test code = 0.8 See_Comment [Aut omated message] The Basophils) system which ge nerated this result tra nsmitted reference range : <=1.0. The reference r christiano was not used to int erpret this result as normal/abnormal . [place] 391170-12-06 04:34:00 Test Item Value Reference Range Interpretation Comments Neutrophils # (test code = Neutrophils 7.2 1.5-8.1 #) [place] 391170-12-06 04:34:00 Test Item Value Reference Range Interpretation Comments Lymphocytes # (test code = Lymphocytes 1.1 1.0-5.5 #) [place] 391170-12-06 04:34:00 Test Item Value Reference Range Interpretation Comments Monocytes # (test code 1.3 See_Comment [Aut omated message] The = Monocytes #) system which generated this result tra nsmitted reference range : <=0.8. The reference r christiano was not used to int erpret this result as normal/abnormal . [id number] 04:34:00 Test Item Value Reference Range Interpretation Comments Eosinophils # (test code 0.1 See_Comment [A utomated message] The = Eosinophils #) system whic h generated this result tra nsmitted reference range : <=0.5. The reference r christiano was not used to int erpret this result as normal/abnormal . [facility]hygbhXXQLWQXRQE8099-89-56 04:34:00 Test Item Value Reference Range Interpretation Comments Basophils # (test code 0.1 See_Comment [Aut omated message] The = Basophils #) system which generated this result tra nsmitted reference range : <=0.2. The reference r christiano was not used to int erpret this result as normal/abnormal . [facility] [id number] 04:34:00 Test Item Value Reference Range Interpretation Comments Troponin-I (test code no gt See_Comment [Auto mated message] The = Troponin-I) system which g enerated this result transmit sheba reference range : <=0.40. The reference r christiano was not used to interpr et this result as edy l/abnormal. [facility] [id number] 04:34:00 Test Item Value Reference Range Interpretation Comments Glucose Lvl (test code = Glucose Lvl) 125 70-99 [facility] [id number] 04:34:00 Test Item Value Reference Range Interpretation Comments BUN (test code = BUN) 17 7-22 [facility] [id number] 04:34:00 Test Item Value Reference Range Interpretation Comments Creatinine Lvl (test code = Creatinine 1.51 0.50-1.40 Lvl) [facility] [id number] 04:34:00 Test Item Value Reference Range Interpretation Comments Sodium Lvl (test code = Sodium Lvl) 142 135-145 [facility] [id number] 04:34:00 Test Item Value Reference Range Interpretation Comments Potassium Lvl (test code = Potassium 4.0 3.5-5.1 Lvl) [place] 468410-12-06 04:34:00 Test Item Value Reference Range Interpretation Comments Chloride Lvl (test code = Chloride Lvl) 108 95-109 [place] 468410-12-06 04:34:00 Test Item Value Reference Range Interpretation Comments CO2 (test code = CO2) 30 24-32 [place] [address]-12-06 04:34:00 Test Item Value Reference Range Interpretation Comments Calcium Lvl (test code = Calcium Lvl) 7.8 8.5-10.5 [place] 468410-12-06 04:34:00 Test Item Value Reference Range Interpretation Comments AGAP (test code = AGAP) 8.0 10.0-20.0 [place] 468410-12-06 04:34:00 Test Item Value Reference Range Interpretation Comments eGFR (test code = eGFR) 33 [place] [address]-12-06 04:34:00 Test Item Value Reference Range Interpretation Comments WBC X 10x3 (test code = WBC X 10x3) 9.7 3.7-10.4 [place] 391170-12-06 04:34:00 Test Item Value Reference Range Interpretation Comments RBC X 10x6 (test code = RBC X 10x6) 3.96 4.20-5.40 [place] 391170-12-06 04:34:00 Test Item Value Reference Range Interpretation Comments Hgb (test code = Hgb) 10.6 12.0-16.0 [place] [address]-12-06 04:34:00 Test Item Value Reference Range Interpretation Comments Hct (test code = Hct) 32.6 36.0-48.0 [place] [address]-12-06 04:34:00 Test Item Value Reference Range Interpretation Comments MCV (test code = MCV) 82.3 80.0-98.0 [place] [address]-12-06 04:34:00 Test Item Value Reference Range Interpretation Comments MCH (test code = MCH) 26.6 pg 27.0-31.0 [place] [address]-12-06 04:34:00 Test Item Value Reference Range Interpretation Comments MCHC (test code = MCHC) 32.4 32.0-36.0 [place] [address]-12-06 04:34:00 Test Item Value Reference Range Interpretation Comments RDW (test code = RDW) 16.8 11.5-14.5 [place] [address]-12-06 04:34:00 Test Item Value Reference Range Interpretation Comments Platelet (test code = Platelet) 178 133-450 [place] 391170-12-06 04:34:00 Test Item Value Reference Range Interpretation Comments MPV (test code = MPV) 8.0 7.4-10.4 [place] [address]-12-06 04:34:00 Test Item Value Reference Range Interpretation Comments PT (test code = PT) 14.7 s 12.0-14.7 [place] [address]-12-06 04:34:00 Test Item Value Reference Range Interpretation Comments INR (test code = INR) 1.14 1 0.85-1.17 [place] [address]-12-06 04:34:00 Test Item Value Reference Range Interpretation Comments PTT (test code = PTT) 31.2 s 22.9-35.8 [place] [address]-12-06 04:34:00 Test Item Value Reference Range Interpretation Comments Segs (test code = Segs) 73.9 45.0-75.0 [place] 391170-12-06 04:34:00 Test Item Value Reference Range Interpretation Comments Lymphocytes (test code = Lymphocytes) 11.0 20.0-40.0 [place] [address]-12-06 04:34:00 Test Item Value Reference Range Interpretation Comments Monocytes (test code = Monocytes) 13.6 2.0-12.0 [place] [address]-12-06 04:34:00 Test Item Value Reference Range Interpretation Comments Eosinophils (test code = 0.7 See_Comment [A utomated message] The Eosinophils) system which ge nerated this result tra nsmitted reference range : <=4.0. The reference r christiano was not used to int erpret this result as normal/abnormal . [place] [address]-12-06 04:34:00 Test Item Value Reference Range Interpretation Comments Basophils (test code = 0.8 See_Comment [Aut omated message] The Basophils) system which ge nerated this result tra nsmitted reference range : <=1.0. The reference r christiano was not used to int erpret this result as normal/abnormal . [facility] SaultW[id number] 04:34:00 Test Item Value Reference Range Interpretation Comments Neutrophils # (test code = Neutrophils 7.2 1.5-8.1 #) [facility] SaultUltemviQJQHYWGIVB6093-84-82 04:34:00 Test Item Value Reference Range Interpretation Comments Lymphocytes # (test code = Lymphocytes 1.1 1.0-5.5 #) [facility]AllenEplssbmTYKHOJUYDY7314-95-93 04:34:00 Test Item Value Reference Range Interpretation Comments Monocytes # (test code 1.3 See_Comment [Aut omated message] The = Monocytes #) system which generated this result tra nsmitted reference range : <=0.8. The reference r christiano was not used to int erpret this result as normal/abnormal . [facility] McAllenRtypgzxREFMBFULZX4819-97-11 04:34:00 Test Item Value Reference Range Interpretation Comments Eosinophils # (test code 0.1 See_Comment [A utomated message] The = Eosinophils #) system whic h generated this result tra nsmitted reference range : <=0.5. The reference r christiano was not used to int erpret this result as normal/abnormal . [facility] McAllenSkobwkxAQQWMRCCPY5251-19-34 04:34:00 Test Item Value Reference Range Interpretation Comments Basophils # (test code 0.1 See_Comment [Aut omated message] The = Basophils #) system which generated this result tra nsmitted reference range : <=0.2. The reference r christiano was not used to int erpret this result as normal/abnormal . [facility] [id number] 04:34:00 Test Item Value Reference Range Interpretation Comments Troponin-I (test code no gt See_Comment [Auto mated message] The = Troponin-I) system which g enerated this result transmit sheba reference range : <=0.40. The reference r christiano was not used to interpr et this result as edy l/abnormal. [facility] [id number] 04:34:00 Test Item Value Reference Range Interpretation Comments Glucose Lvl (test code = Glucose Lvl) 125 70-99 [facility] [id number] 04:34:00 Test Item Value Reference Range Interpretation Comments BUN (test code = BUN) 17 7-22 [place] 468410-12-06 04:34:00 Test Item Value Reference Range Interpretation Comments Creatinine Lvl (test code = Creatinine 1.51 0.50-1.40 Lvl) [place] 468410-12-06 04:34:00 Test Item Value Reference Range Interpretation Comments Sodium Lvl (test code = Sodium Lvl) 142 135-145 [place] [address]-12-06 04:34:00 Test Item Value Reference Range Interpretation Comments Potassium Lvl (test code = Potassium 4.0 3.5-5.1 Lvl) [place] 468410-12-06 04:34:00 Test Item Value Reference Range Interpretation Comments Chloride Lvl (test code = Chloride Lvl) 108 95-109 [place] 468410-12-06 04:34:00 Test Item Value Reference Range Interpretation Comments CO2 (test code = CO2) 30 24-32 [place] 468410-12-06 04:34:00 Test Item Value Reference Range Interpretation Comments Calcium Lvl (test code = Calcium Lvl) 7.8 8.5-10.5 [place] 468410-12-06 04:34:00 Test Item Value Reference Range Interpretation Comments AGAP (test code = AGAP) 8.0 10.0-20.0 [place] 468410-12-06 04:34:00 Test Item Value Reference Range Interpretation Comments eGFR (test code = eGFR) 33 [place] [address]-12-06 04:34:00 Test Item Value Reference Range Interpretation Comments WBC X 10x3 (test code = WBC X 10x3) 9.7 3.7-10.4 [place] 391170-12-06 04:34:00 Test Item Value Reference Range Interpretation Comments RBC X 10x6 (test code = RBC X 10x6) 3.96 4.20-5.40 [place] [address]-12-06 04:34:00 Test Item Value Reference Range Interpretation Comments Hgb (test code = Hgb) 10.6 12.0-16.0 [place] [address]-12-06 04:34:00 Test Item Value Reference Range Interpretation Comments Hct (test code = Hct) 32.6 36.0-48.0 [place] [address]-12-06 04:34:00 Test Item Value Reference Range Interpretation Comments MCV (test code = MCV) 82.3 80.0-98.0 [facility] McAllenDgqhkrfDCAGIJHTUA6353-65-39 04:34:00 Test Item Value Reference Range Interpretation Comments MCH (test code = MCH) 26.6 pg 27.0-31.0 [facility] McAllenQjcgcrhMRAACRDMAD7855-30-40 04:34:00 Test Item Value Reference Range Interpretation Comments MCHC (test code = MCHC) 32.4 32.0-36.0 [facility] McAllenEewgatzSXQOPRQCJC3140-41-28 04:34:00 Test Item Value Reference Range Interpretation Comments RDW (test code = RDW) 16.8 11.5-14.5 [facility] McAllenAxqvfztIKANDGVYNP8894-97-02 04:34:00 Test Item Value Reference Range Interpretation Comments Platelet (test code = Platelet) 178 133-450 [facility] McAllenGlxjqmdZQGUSETYHT7398-99-21 04:34:00 Test Item Value Reference Range Interpretation Comments MPV (test code = MPV) 8.0 7.4-10.4 [facility] McAllenQehbimoBFJTZJYHYP8165-97-59 04:34:00 Test Item Value Reference Range Interpretation Comments PT (test code = PT) 14.7 s 12.0-14.7 [facility] McAllenNdylgljBMASRXDHBF7449-46-39 04:34:00 Test Item Value Reference Range Interpretation Comments INR (test code = INR) 1.14 1 0.85-1.17 [facility] McAllenWasandiBSJVNFNGOM6235-61-06 04:34:00 Test Item Value Reference Range Interpretation Comments PTT (test code = PTT) 31.2 s 22.9-35.8 [facility] McAllenYwgwmtyAGPLTVNFFW8754-80-94 04:34:00 Test Item Value Reference Range Interpretation Comments Segs (test code = Segs) 73.9 45.0-75.0 [facility] McAllenWzfewdkNKVORCLRHA9546-28-73 04:34:00 Test Item Value Reference Range Interpretation Comments Lymphocytes (test code = Lymphocytes) 11.0 20.0-40.0 [facility] McAllenUzgtptzDYKYFDQDSB9333-98-76 04:34:00 Test Item Value Reference Range Interpretation Comments Monocytes (test code = Monocytes) 13.6 2.0-12.0 [facility] McAllenZhyjhufGVEGGPPIMC9659-22-72 04:34:00 Test Item Value Reference Range Interpretation Comments Eosinophils (test code = 0.7 See_Comment [A utomated message] The Eosinophils) system which ge nerated this result tra nsmitted reference range : <=4.0. The reference r christiano was not used to int erpret this result as normal/abnormal . [place] 391170-12-06 04:34:00 Test Item Value Reference Range Interpretation Comments Basophils (test code = 0.8 See_Comment [Aut omated message] The Basophils) system which ge nerated this result tra nsmitted reference range : <=1.0. The reference r christiano was not used to int erpret this result as normal/abnormal . [place] 391170-12-06 04:34:00 Test Item Value Reference Range Interpretation Comments Neutrophils # (test code = Neutrophils 7.2 1.5-8.1 #) [place] 391170-12-06 04:34:00 Test Item Value Reference Range Interpretation Comments Lymphocytes # (test code = Lymphocytes 1.1 1.0-5.5 #) [place] [address]-12-06 04:34:00 Test Item Value Reference Range Interpretation Comments Monocytes # (test code 1.3 See_Comment [Aut omated message] The = Monocytes #) system which generated this result tra nsmitted reference range : <=0.8. The reference r christiano was not used to int erpret this result as normal/abnormal . [facility] McAllenAfmsshwBWCHINEXOD4097-89-11 04:34:00 Test Item Value Reference Range Interpretation Comments Eosinophils # (test code 0.1 See_Comment [A utomated message] The = Eosinophils #) system [facility] generated this result tra nsmitted reference range : <=0.5. The reference r christiano was not used to int erpret this result as normal/abnormal . [facility] McAllenCsppbsiELFEJKMGBI0462-08-76 04:34:00 Test Item Value Reference Range Interpretation Comments Basophils # (test code 0.1 See_Comment [Aut omated message] The = Basophils #) system which generated this result tra nsmitted reference range : <=0.2. The reference r christiano was not used to int erpret this result as normal/abnormal . [facility]W [id number] 17:54:27 Comminuted distal clavicle fracture. EXAM: XR SHOULDER 2+ VW RIGHT HISTORY: shoulder pain COMPARISON: None. FINDINGS: A comminuted fracture of the distal clavicle is seen. There is resultantmild widening of the acromioclavicular joint. Alignment is maintained atthe glenohumeral joint which exhibits osteoarthritic changes manifested byjoint space narrowing and osteophytosis. Osteopenia is suggested.At herosclerotic calcifications are present in the aortic arch. [facility], Radiant Results [facility] User - 06/28/2020 12:55 PM CDTEXAM:XR SHOULDER 2+ VW RIGHTHISTORY:shoulder pain COMPARISON:None.FINDINGS: A comminuted fracture of the distal clavicle is seen. There is resultantmild widening of the acromioclavicular joint. Alignment is maintained atthe glenohumeral joint which exhibits osteoarthritic changes manifested byjoint space narrowing and osteophytosis. Osteopenia is suggested.Atherosclerotic calcifications are present in the aortic arch.IMPRESSIONComminuted distal clavicle fracture. [facility]W [id number] 17:53:09 No acute bony abnormality. EXAM: XR FOREARM 2 VW RIGHT HISTORY: right arm pain COMPARISON: None. FINDINGS: Osteopenia is noted. 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 Mild osteoarthritic changes are present at theelbow. No acute fracture or dislocation is seen. [facility] 12:54 PM CDTEXAM:XR FOREARM 2 VW RIGHTHISTORY:right arm pain COMPARISON:None.FINDINGS: Osteopenia is noted. 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 Mild osteoarthritic changes are present at theelbow. No acute fracture or dislocation is seen.IMPRESSIONNo acute bony abnormality.[facility] Notes Date/Time Note Provider Source 2022-11-27 EXAM: MRI CERVICAL SPINE WITHOUT CONTRAST [facility] 05:40:00-00:00 DATE: 11/27/2022 Center INDICATION: - Rule [...] CONTRAST [facility] 05:40:00-00:00 DATE: 11/27/2022 Center INDICATION: - Rule [...] CONTRAST [facility] 05:40:00-00:00 DATE: 11/27/2022 Center INDICATION: - Rule [...] CONTRAST [facility] 05:40:00-00:00 DATE: 11/27/2022 Center INDICATION: - Rule [...] CONTRAST [facility] 01:29:43-00:00 DATE: 11/27/2022 Center INDICATION: - pain [...] CONTRAST [facility] 01:29:43-00:00 DATE: 11/27/2022 Center INDICATION: - pain [...] CONTRAST [facility] 01:29:43-00:00 DATE: 11/27/2022 Center INDICATION: - pain [...] CONTRAST [facility] 01:29:43-00:00 DATE: 11/27/2022 Center INDICATION: - pain [...] CONTRAST [facility] 00:49:03-00:00 DATE: 11/27/2022 0:49 Center INDICATION: Status post fall , pain after trauma. Following trauma transfer for higher level of care request for outside film interpretation CT cervical spine without contrast performed 11/26/2022 at 2044 hours from [facility] COMPARISON: None. TECHNIQUE: Volumetric CT of the cervical spine is acquired without contrast. Axial, coronal and sagittal images are provided. IV contrast: None. DLP: Refer to CT protocol form [place] SECTION: ER FINDINGS: The spine is imaged from the skull base to the l evel of T2/T3. Retail Customer Service Representative: Noncontributory. Bones: There is generalized decreased bone [...] CONTRAST [facility] 00:49:03-00:00 DATE: 11/27/2022 0:49 Center INDICATION: Status post fall , pain after trauma. Following trauma transfer for higher level of care request for outside film interpretation CT cervical spine without contrast performed 11/26/2022 at 2044 hours from [facility] COMPARISON: None. TECHNIQUE: Volumetric CT of the cervical spine is acquired without contrast. Axial, coronal and sagittal images are provided. IV contrast: None. DLP: Refer to CT protocol form [place] SECTION: ER FINDINGS: The spine is imaged from the skull base to the l evel of T2/T3. Retail Customer Service Representative: Noncontributory. Bones: There is generalized decreased bone [...] CONTRAST [facility] 00:49:03-00:00 DATE: 11/27/2022 0:49 Center INDICATION: Status post fall , pain after trauma. Following trauma transfer for higher level of care request for outside film interpretation CT cervical spine without contrast performed 11/26/2022 at 2044 hours from [facility] COMPARISON: None. TECHNIQUE: Volumetric CT of the cervical spine is acquired without contrast. Axial, coronal and sagittal images are provided. IV contrast: None. DLP: Refer to CT protocol form [place] SECTION: ER FINDINGS: The spine is imaged from the skull base to the l evel of T2/T3. Retail Customer Service Representative: Noncontributory. Bones: There is generalized decreased bone [...] CONTRAST [facility] 00:49:03-00:00 DATE: 11/27/2022 0:49 Center INDICATION: Status post fall , pain after trauma. Following trauma transfer for higher level of care request for outside film interpretation CT cervical spine without contrast performed 11/26/2022 at 2044 hours from [facility] COMPARISON: None. TECHNIQUE: Volumetric CT of the cervical spine is acquired without contrast. Axial, coronal and sagittal images are provided. IV contrast: None. DLP: Refer to CT protocol form [place] SECTION: ER FINDINGS: The spine is imaged from the skull base to the l evel of T2/T3. Retail Customer Service Representative: Noncontributory. Bones: There is generalized decreased bone [...] 2022-11-21 EXAM: XR RIGHT KNEE 3 VIEWS [facility] 06:10:00-00:00 DATE: 11/21/2022 6:10 Center INDICATION: [...] 2022-11-21 EXAM: XR RIGHT KNEE 3 VIEWS [facility] [employer] 06:10:00-00:00 DATE: 11/21/2022 6:10 Center INDICATION: - [...] 2022-11-21 EXAM: XR RIGHT KNEE 3 VIEWS [facility] 06:10:00-00:00 DATE: 11/21/2022 6:10 Center INDICATION: - [...] 2022-11-21 EXAM: XR RIGHT KNEE 3 VIEWS [facility] 06:10:00-00:00 DATE: 11/21/2022 6:10 Center INDICATION: - [...] CONTRAST [facility] 05:13:56-00:00 DATE: 11/21/2022 5:16 AM Center INDICATION: [...] CONTRAST [facility] 05:13:56-00:00 DATE: 11/21/2022 5:16 AM Center INDICATION: [...] CONTRAST [facility] 05:13:56-00:00 DATE: 11/21/2022 5:16 AM Center INDICATION: [...] CONTRAST [facility] 05:13:56-00:00 DATE: 11/21/2022 5:16 AM Center INDICATION: [...] CONTRAST [facility] 16:36:00-00:00 DATE: 09/05/2020 405 PM RIPPER OPERATOR Cente r INDICATION: 79 years old Fem [...] CONTRAST [facility] 16:36:00-00:00 DATE: 09/05/2020 405 PM RIPPER OPERATOR Cente r INDICATION: 79 years old Fem [...] CONTRAST [facility] 16:36:00-00:00 DATE: 09/05/2020 405 PM RIPPER OPERATOR Cente r INDICATION: 79 years old Fem [...] Remainder of the findings have been stable [facility] prior study. 2020-09-05 EXAM: MRI CERVICAL SPINE WITHOUT CONTRAST [facility] 16:36:00-00:00 DATE: 09/05/2020 405 PM RIPPER OPERATOR Cente r INDICATION: 79 years old Fem [...] CONTRAST [facility] 06:30:20-00:00 EXAM: CT ABDOMEN AND PELVIS WITH CONTRAST Center DATE: 09/05/2020 5:12 RIPPER OPERATOR INDICATION: - eval for T and L spine fx given C spine fx COMPARISON: None TECHNIQUE: Volumetric CT of the chest, abdomen and pelvis is acquired following intravenous administration of contrast. Axial, coronal and sagittal images are provided. IV contrast: 100 mL Omnipaque 350 Oral contrast: None. DLP: 3034 mGy-cm [place] SECTION: ER FINDINGS: Retail Customer Service Representative: Noncontributory. Lines and tubes: None. Lower Neck: [...] CONTRAST [facility] 06:30:20-00:00 EXAM: CT ABDOMEN AND PELVIS WITH CONTRAST [place] DATE: 09/05/2020 5:12 RIPPER OPERATOR INDICATION: - eval for T and L spine fx given C spine fx COMPARISON: None TECHNIQUE: Volumetric CT of the chest, abdomen and pelvis is acquired following intravenous administration of contrast. Axial, coronal and sagittal images are provided. IV contrast: 100 mL Omnipaque 350 Oral contrast: None. DLP: 3034 mGy-cm UT SECTION: ER FINDINGS: Retail Customer Service Representative: Noncontributory. Lines and tubes: None. Lower Neck: [...] CONTRAST [facility] 06:30:20-00:00 EXAM: CT ABDOMEN AND PELVIS WITH CONTRAST Center DATE: 09/05/2020 5:12 RIPPER OPERATOR INDICATION: - eval for T and L spine fx given C spine fx COMPARISON: None TECHNIQUE: Volumetric CT of the chest, abdomen and pelvis is acquired following intravenous administration of contrast. Axial, coronal and sagittal images are provided. IV contrast: 100 mL Omnipaque 350 Oral contrast: None. DLP: 3034 mGy-cm UT SECTION: ER FINDINGS: Retail Customer Service Representative: Noncontributory. Lines and tubes: None. Lower Neck: [...] CONTRAST [facility] 06:30:20-00:00 EXAM: CT ABDOMEN AND PELVIS WITH CONTRAST [place] DATE: 09/05/2020 5:12 RIPPER OPERATOR INDICATION: - eval for T and L spine fx given C spine fx COMPARISON: None TECHNIQUE: Volumetric CT of the chest, abdomen and pelvis is acquired following intravenous administration of contrast. Axial, coronal and sagittal images are provided. IV contrast: 100 mL Omnipaque 350 Oral contrast: None. DLP: 3034 mGy-cm UT SECTION: ER FINDINGS: Retail Customer Service Representative: Noncontributory. Lines and tubes: None. Lower Neck: [...] ulitis. 2020-09-05 EXAM: XR CHEST 1 VIEW [facility] 06:08:00-00:00 DATE: 09/05/2020 6:14 RIPPER OPERATOR Center INDICATION: - preop COMPARISON: None. TECHNIQUE: [...] ER 2020-09-05 EXAM: XR CHEST 1 VIEW [facility] 06:08:00-00:00 DATE: 09/05/2020 6:14 RIPPER OPERATOR Center INDICATION: - preop COMPARISON: None. TECHNIQUE: [...] ER 2020-09-05 EXAM: XR CHEST 1 VIEW [facility] 06:08:00-00:00 DATE: 09/05/2020 6:14 RIPPER OPERATOR Center INDICATION: - preop COMPARISON: None. TECHNIQUE: [...] ER 2020-09-05 EXAM: XR CHEST 1 VIEW [facility] 06:08:00-00:00 DATE: 09/05/2020 6:14 RIPPER OPERATOR Center INDICATION: - preop COMPARISON: None. TECHNIQUE: [...] VIEWS [facility] 03:25:00-00:00 DATE: 09/05/2020 3:25 [facility] INDICATION: - splinted, concern for fracture COMPARISON: [...] VIEWS [facility] 03:25:00-00:00 DATE: 09/05/2020 3:25 [facility] INDICATION: - splinted, concern for fracture COMPARISON: [...] VIEWS [facility] 03:25:00-00:00 DATE: 09/05/2020 3:25 [facility] INDICATION: - splinted, concern for fracture COMPARISON: [...] VIEWS [facility] 03:25:00-00:00 DATE: 09/05/2020 3:25 [facility] INDICATION: - splinted, concern for fracture COMPARISON: [...] CONTRAST. [facility] 00:50:17-00:00 DATE: 09/04/2020 10:[address] INDICATION: - concern for ligamentous [...] facets. 4. Lower cervical spondylosi s causing wxvu-xg-onobqznz canal stenosis at C5-C6 and C6-C7. There is no cord signal abnormality identified. 2020-09-05 EXAM: MAGNETIC RESONANCE IMAGING CERVICAL SPINE WITHOUT CONTRAST. [facility] 00:50:17-00:00 DATE: 09/04/2020 10:[address] INDICATION: - concern for ligamentous [...] facets. 4. Lower cervical spondylosi s causing lkwr-oc-xoxierer canal stenosis at C5-C6 and C6-C7. There is no cord signal abnormality identified. 2020-09-05 EXAM: MAGNETIC RESONANCE IMAGING CERVICAL SPINE WITHOUT CONTRAST. [facility] 00:50:17-00:00 DATE: 09/04/2020 10:05 [address]PER[address] INDICATION: - concern for ligamentous [...] facets. 4. Lower cervical spondylosi s causing fxmw-af-ntgridas canal stenosis at C5-C6 and C6-C7. There is no cord signal abnormality identified. 2020-09-05 EXAM: MAGNETIC RESONANCE IMAGING CERVICAL SPINE WITHOUT CONTRAST. [facility] 00:50:17-00:00 DATE: 09/04/2020 10:05 [address] OPERATOR [address] ter INDICATION: - concern for ligamentous [...] facets. 4. Lower cervical spondylosi s causing osny-ll-zjsbmqey canal stenosis at C5-C6 and C6-C7. There is no cord signal abnormality identified. 2020-09-04 [facility] 21:38:00-00:00 EXAMINATION: CT head without contrast Center DATE: 09/04/2020 INDICATION: Concussion. Fall. FINDINGS: Noncontrast CT images of the head are performed at an outside institution and submitted for reinterpretation following transfer. There is no intracranial hemorrhage or other bra in injury. The skull and sinuses are intact. IMPRESSION: No acute intracranial abnormality. UT SECTION: Neuro 2020-09-04 [facility] 21:38:00-00:00 EXAMINATION: CT head without contrast Center DATE: 09/04/2020 INDICATION: Concussion. Fall. FINDINGS: Noncontrast CT images of the head are performed at an outside institution and submitted for reinterpretation following transfer. There is no intracranial hemorrhage or other bra in injury. The skull and sinuses are intact. IMPRESSION: No acute intracranial abnormality. UT SECTION: Neuro 2020-09-04 [facility] 21:38:00-00:00 EXAMINATION: CT head without contrast Center DATE: 09/04/2020 INDICATION: Concussion. Fall. FINDINGS: Noncontrast CT images of the head are performed at an outside institution and submitted for reinterpretation following transfer. There is no intracranial hemorrhage or other bra in injury. The skull and sinuses are intact. IMPRESSION: No acute intracranial abnormality. UT SECTION: Neuro 2020-09-04 [facility] 21:38:00-00:00 EXAMINATION: CT head without contrast Center DATE: 09/04/2020 INDICATION: Concussion. Fall. FINDINGS: Noncontrast CT images of the head are performed at an outside institution and submitted for reinterpretation following transfer. There is no intracranial hemorrhage or other bra in injury. The skull and sinuses are intact.
[2023-06-19 18:29] LABS: Specific Gravity 1.017 (1.005-1.030); Urine Bilirubin NEGATIVE (Negative); Urine Blood Trace (Negative); Urine Clarity Clear (Clear); Urine Color Light-Yellow (Yellow); Urine Glucose NEGATIVE (Negative); Urine Protein 1+ (Negative); Urine Urobilinogen Normal (Normal); Urine pH 5.5 (5.0-7.0)
[2023-06-19 18:30] LABS: Urine Bacteria <20 /HPF (<20); Urine Crystals Unidentified Few /HPF (None Seen); Urine Mucus Slight /HPF (None Seen)
--- NOTE | 2023-06-19 19:35 | RAD REPORT ---
EXAM DESCRIPTION: MRI - Brain Wo Cont - 06/19/2023 7:12 pm CLINICAL HISTORY: CONFUSED Headache, drowsiness COMPARISON: Head Brain Wo Cont dated 11/25/2022; Head C Spine Mpr Wo Con dated 06/19/2023 TECHNIQUE: Multi-sequence, multiplanar MR imaging of the brain was performed without contrast. FINDINGS: No intracranial hemorrhage, hydrocephalus or extra-axial fluid collections.Moderate conflu ent T2/FLAIR hyperintensity in the periventricular and deep white matter is present compatible with c hronic microvascular ischemic changes. No edema or shift of midline structures. No findings to suspec t brain mass. DWI is negative for acute CVA. Midline structures are normally formed. Mastoid air cells and paranasal sinuses are clear. IMPRESSION: Negative for acute CVA or other acute intracranial process.
--- NOTE | 2023-06-19 20:43 | ER ---
Nurse's Notes [facility] Name: Radha Bentley Age: 82 yrs Sex: Female : 1940 Arrival Date: 06/19/2023 Time: 16:45 Bed 17 Private MD: Diagnosis: Weakness;Recurrent Falls;Altered mental status, unspecified Presentation: 06/19 16:57 Chief complaint: Patient's son or daughter states: "She fell 3 times this morning. The 9 EMS came at 6am and had to help her up this morning. She said she fell and hit her head again. She's confused, can't stand up, and can't keep her balance. She's not acting like her usual self. She's had a brain bleed from previous head injuries" Pts son does not know if she is on blood thinners. Coronavirus screen: Vaccine status: Patient reports receiving the 2nd dose of the covid vaccine. Ebola Screen: No symptoms or risks identified at this time. Initial Sepsis Screen: Does the patient meet any 2 criteria? No. Patient's initial sepsis screen is negative. Does the patient have a suspected source of infection? No. Patient's initial sepsis screen is negative. Risk Assessment: Do you want to hurt yourself or someone else? Patient reports no desire to harm self or others. Onset of symptoms was June 19, 2023. 16:57 Method Of Arrival: Wheelchair mb9 16:57 Acuity: VAIBHAV 2 mb9 Triage Assessment: 17:02 General: Appears in no apparent distress. Behavior is cooperative. Pain: Complains of mb9 pain in head and left shoulder. Neuro: Kelly Agitation-Sedation Scale (RASS): 0 - Alert and Calm Level of Consciousness is awake, obeys commands, confused, Oriented to person. Respiratory: Airway is patent Respiratory effort is even, unlabored, Respiratory pattern is regular, symmetrical. Historical: - Allergies: 16:59 Avelox; mb9 16:59 Band-aid adhesive; mb9 - PMHx: 16:59 ADD/ADHD; COPD; Heart Murmur; Hyperlipidemia; Hyperlipidemia; Hypertension; mb9 Hypothyroidism; kidney disease; - PSHx: 16:59 bilateral knee replacement; breast reduction; Cholecystectomy; Shoulder replacment; mb9 - Immunization history:: Adult Immunizations up to date. - Social history:: Smoking status: Patient/guardian denies using tobacco. Screenin:25 [facility] ED Fall Risk Assessment (Adult) History of falling in the last 3 months, db including since admission Yes- single mechanical fall (1 pt) Confusion or Disorientation Yes (5 pts) Intoxicated or Sedated No (0 pts) Impaired Gait Yes (1 pt) Mobility Assist Device Used Yes (1 pt) Altered Elimination No (0 pt) Score/Fall Risk Level 3 or more points = High Risk Oriented to surroundings, Maintained a safe environment, Educated pt \\T\\ family on fall prevention, incl call for assistance when getting out of bed, Provided non-skid footwear, Hourly rounding (assess needs \\T\\ fall precautionary measures) done. Abuse screen: Denies threats or abuse. Denies injuries from another. Nutritional screening: No deficits noted. Tuberculosis screening: No symptoms or risk factors identified. Assessment: 17:15 Reassessment: Patient appears in no apparent distress at this time. Patient and/or db family updated on plan of care and expected duration. Pain level reassessed. Patient is alert, oriented x 3, equal unlabored respirations, skin warm/dry/pink. PATIENT HERE AFTER FALL WHILE WALKING DOGS. STATES WALKED DOGS AND GOT TANGLED UP THEN FELL. BRUISING TO FACE. General: Appears in no apparent distress. comfortable, Behavior is calm, cooperative. Pain: Complains of pain in face. Neuro: Level of Consciousness is awake, alert, obeys commands, Oriented to person, place, time, situation. Cardiovascular: Reports None. Respiratory: Airway is patent Respiratory effort is even, unlabored, Respiratory pattern is regular, symmetrical. GI: Abdomen is flat. 18:00 Derm: Rash noted that is on abdomen. db 18:35 Reassessment: Patient appears in no apparent distress at this time. Patient and/or db family updated on plan of care and expected duration. Pain level reassessed. Patient is alert, oriented x 3, equal unlabored respirations, skin warm/dry/pink. 18:35 Reassessment: PATIENT TO MRI. db 19:39 General: Appears in no apparent distress. comfortable, Behavior is calm, cooperative. kd3 Neuro: Level of Consciousness is awake, alert, obeys commands, intermittent confusion . Oriented to person, place, time, situation. Respiratory: Airway is patent Trachea midline Respiratory effort is even, unlabored, Respiratory pattern is regular, symmetrical. GI: Abdomen is non-distended. Vital Signs: 16:57 BP 101 / 58; Pulse 74; Resp 16; Temp 98.9; Pulse Ox 94% on R/A; Weight 83.91 kg; Height mb9 5 ft. 3 in. ; 17:30 BP 126 / 59; Pulse 74; Resp 16; Pulse Ox 95% on R/A; db 18:00 BP 124 / 74; Pulse 77; Resp 16; Pulse Ox 99% on R/A; db 19:40 BP 138 / 71; Pulse 77; Resp 18; Pulse Ox 95% on R/A; kd3 20:28 BP 140 / 73; Pulse 79; Resp 19; Pulse Ox 94% on R/A; kd3 16:57 Body Mass Index 32.77 (83.91 kg, 160.02 cm) mb9 ED Course: 16:49 Patient arrived in ED. mg5 16:53 [facility]ly[facility]uced[facility]C [facility]. kb 16:53 González Shah MD is Attending Physician. kb 16:59 Triage completed. mb9 17:01 Arm band placed on. mb9 17:18 Chest Single View XRAY In Process Unspecified. EDMS 17:22 Basic Metabolic Panel Sent. bc6 17:22 CBC with Diff Sent. bc6 17:22 Hepatic Function Sent. bc6 17:22 Magnesium Sent. bc6 17:22 Protime (+inr) Sent. bc6 17:22 Ptt, Activated Sent. bc6 17:22 Troponin High Sensitivity Sent. bc6 17:22 Inserted saline lock: 20 gauge in right antecubital area, using aseptic technique. bc6 Blood collected. 17:29 CT Head C Spine In Process Unspecified. EDMS 17:36 Snehal Aponte, RN is Primary Nurse. db 18:00 Straight cath inserted, using sterile technique, Specimen obtained. Patient tolerated db PURIWICK PLACED AFTER STRAIGHTCATH. 18:42 Patient has correct armband on for positive identification. Placed in gown. Bed in low db position. Call light in reach. Side rails up X2. Client placed on continuous cardiac and pulse oximetry monitoring. NIBP monitoring applied. 19:11 MRI - Brain Wo Cont In Process Unspecified. EDMS 20:42 Villa Mann MD is Hospitalizing Provider. kb 21:44 Provided Education on: . kd3 21:44 No provider procedures requiring assistance completed. Patient admitted, IV remains in kd3 place. Administered Medications: No medications were administered Medication: 19:40 VIS not applicable for this client. kd3 Outcome: 20:43 Decision to Hospitalize by Provider. kb 21:44 Admitted to Med/surg kd3 21:44 Condition: stable 21:44 Discharge instructions given to patient, 21:44 Patient left the ED. kd3 Signatures: Dispatcher [employer] EDKY Alycia Euceda FNP-C FNP-Ckb Doucette, Kyli RN RN kd3 Snehal Aponte RN RN Mayi Domingo RN RN mb9 Melanie Isaac 6 Supriya Saul 5 Corrections: (The following items were deleted from the chart) 17:01 16:59 PMHx: Brain bleed (Shoulder replacment); mb9 mb9 17:01 16:59 PMHx: brain bleed (Shoulder replacment); [facility] mb9 17:02 16:57 Chief complaint: Patient's son or daughter states: "She fell 3 times this mb9 morning. The EMS came at 6am and had to help her up this morning. She said she fell and hit her head again. She's confused, can't stand up, and can't keep her balance. She's not acting like her usual self" mb9 17:02 16:57 BP 102 / 48; Pulse 74bpm; Resp 16bpm; Pulse Ox 94% RA; Temp 98.9F; 83.91 kg; mb9 Height 5 ft. 3 in.; BMI: 32.7; mb9 18:49 18:41 Reassessment: Patient appears in no apparent distress at this time. Patient db and/or family updated on plan of care and expected duration. Pain level reassessed. Patient is alert, oriented x 3, equal unlabored respirations, skin warm/dry/pink. db 18:49 18:41 Derm: Rash noted that is on abdomen db db 18:49 18:42 Reassessment: db db
--- NOTE | 2023-06-19 20:43 | EDPHYS ---
Physician Documentation [facility] Name: Radha Bentley Age: 82 yrs Sex: Female : 1940 Arrival Date: 06/19/2023 Time: 16:45 Bed 17 Private MD: ED Physician González Shah HPI: 06/19 17:26 This 82 yrs old Female presents to ER via Wheelchair with complaints of Fall Injury, kb Head Injury-Adult, Balance problem, Confusion. 17:26 Details of fall: The patient fell from an upright position. Onset: The symptoms/episode kb began/occurred this morning. Associated injuries: The patient sustained injury to the head, pain, neck injury, pain. Severity of symptoms: At their worst the symptoms were moderate, in the emergency department the symptoms are unchanged. The patient has not experienced similar symptoms in the past. The patient has not recently seen a physician. Son reports pt has fallen 3 times today and has hit her head a few times. States she hit her head on the car again when he was trying to get her here. States pt has also been confused since she woke up today. States she cannot stand without him holding onto her or she will fall. . Historical: - Allergies: 16:59 Avelox; mb9 16:59 Band-aid adhesive; mb9 - PMHx: 16:59 ADD/ADHD; COPD; Heart Murmur; Hyperlipidemia; Hyperlipidemia; Hypertension; mb9 Hypothyroidism; kidney disease; - PSHx: 16:59 bilateral knee replacement; breast reduction; Cholecystectomy; Shoulder replacment; mb9 - Immunization history:: Adult Immunizations up to date. - Social history:: Smoking status: Patient/guardian denies using tobacco. ROS: 17:29 Constitutional: Negative for fever, chills, and weight loss, kb 17:29 Neck: Positive for pain with movement, pain at rest, 17:29 Neuro: Positive for altered mental status, gait disturbance, headache, weakness, 17:29 All other systems are negative, Exam: 17:48 ECG was reviewed by the Attending Physician. kb 20:41 Constitutional: This is a well developed, well nourished patient who is awake, alert, kb and in no acute distress. ENT: Moist Mucous membranes Cardiovascular: Regular rate Respiratory: Respirations even and unlabored. No increased work of breathing. Talking in full sentences Abdomen/GI: Soft, non-tender. No distention Skin: Warm, dry with normal turgor. Normal color. MS/ Extremity: Pulses equal, no cyanosis. Neurovascular intact. Full, normal range of motion. Neuro: Awake and alert, GCS 15, oriented to person, place, time, and situation. Moves all extremities. 20:41 Head/face: Noted is no obvious of injury or deformity except ecchymosis, that is moderate, of the face, Vital Signs: 16:57 BP 101 / 58; Pulse 74; Resp 16; Temp 98.9; Pulse Ox 94% on R/A; Weight 83.91 kg; Height mb9 5 ft. 3 in. ; 17:30 BP 126 / 59; Pulse 74; Resp 16; Pulse Ox 95% on R/A; db 18:00 BP 124 / 74; Pulse 77; Resp 16; Pulse Ox 99% on R/A; db 19:40 BP 138 / 71; Pulse 77; Resp 18; Pulse Ox 95% on R/A; kd3 20:28 BP 140 / 73; Pulse 79; Resp 19; Pulse Ox 94% on R/A; kd3 16:57 Body Mass Index 32.77 (83.91 kg, 160.02 cm) mb9 MDM: 16:53 Patient medically screened. kb 17:28 Differential diagnosis: closed head injury, contusion, ICH, CVA. Data reviewed: vital kb signs, nurses notes. Historians other than the Patient: Daughter/Son: son. 20:41 Consideration of Admission/Observation Patient was admitted/placed on observation. kb Escalation of care including admission/observation considered. Management of patient was discussed with the following: Primary Care Provider: Dr Mann accepts pt for admission. Counseling: I had a detailed discussion with the patient and/or guardian regarding the historical points, exam findings, and any diagnostic results supporting the discharge/admit diagnosis, lab results, radiology results, the need for further work-up and treatment in the hospital. 06/19 17:04 Order name: Basic Metabolic Panel; Complete Time: 17:50 kb 06/19 17:04 Order name: CBC with Diff; Complete Time: 17:34 kb 06/19 17:04 Order name: Hepatic Function; Complete Time: 17:50 kb 06/19 17:04 Order name: Magnesium; Complete Time: 17:50 kb 06/19 17:04 Order name: Protime (+inr); Complete Time: 17:34 kb 06/19 17:04 Order name: Ptt, Activated; Complete Time: 17:34 kb 06/19 17:04 Order name: Troponin High Sensitivity; Complete Time: 17:50 kb 06/19 17:04 Order name: Urinalysis w/ reflexes; Complete Time: 18:34 kb 06/19 17:04 Order name: CT Head C Spine; Complete Time: 17:48 kb 06/19 17:04 Order name: Chest Single View XRAY; Complete Time: 17:29 kb 06/19 17:12 Order name: MRI - Brain Wo Cont; Complete Time: 19:46 kb 06/19 17:04 Order name: EKG; Complete Time: 17:05 kb 06/19 17:04 Order name: Cardiac monitoring; Complete Time: 18:37 kb 06/19 17:04 Order name: EKG - Nurse/Tech; Complete Time: 18:37 kb 06/19 17:04 Order name: IV Saline Lock; Complete Time: 17:22 kb 06/19 17:04 Order name: Labs collected and sent; Complete Time: 17:22 kb 06/19 17:04 Order name: NPO; Complete Time: 17:22 kb 06/19 17:04 Order name: O2 Per Protocol; Complete Time: 18:37 kb 06/19 17:04 Order name: O2 Sat Monitoring; Complete Time: 18:37 kb EC:48 Rate is 74 beats/min. Rhythm is regular. Left axis deviation noted. CO interval is kb prolonged at 226 msec. QRS interval is normal at 104 msec. QT interval is normal at 468 msec. Administered Medications: No medications were administered Disposition Summary: 06/19/23 20:43 Hospitalization Ordered Notes: Hospitalization Status: Observation kb Provider: Villa Mann Location: Telemetry/MedSurg (observation) kb Condition: Stable kb Problem: new kb Symptoms: are unchanged kb Bed/Room Type: Standard Room Assignment: (06/19/23 20:50) cg Diagnosis - Weakness kb - Recurrent Falls kb - Altered mental status, unspecified kb Discharge Instructions: - Discharge Summary Sheet db Forms: - Medication Reconciliation Form kb - Leadership Thank You Letter kb - SBAR form db Addendum: 06/21/2023 11:40 Co-signature as Attending Physician, González Shah MD I reviewed the patient's care r n provided by the Advanced Practice Provider and agree with the diagnosis and treatment plan. Signatures: Dispatcher [employer] Alycia Enriquez, ROOF DESIGNER-C ROOF DESIGNER-Ckb González Shah MD MD rn Garcia, Cindy, RN RN cg Breneman, Mary Beth, RN RN mb9 Corrections: (The following items were deleted from the chart) 06/19 17:01 16:59 PMHx: Brain bleed (Shoulder replacment); mb9 mb9 17:01 16:59 PMHx: brain bleed (Shoulder replacment); mb9 mb9 20:50 20:43 kb
[2023-06-20 03:25] LABS: Absolute Lymphocytes (CBC) 1.6 K/uL (0.7-4.9); Hematocrit 26.2 % (36.0-45.0); Lymphocytes % 18.4 % (15.3-44.8); MCV 85.2 fL (80-100); MPV 7.6 fL (7.6-11.3); Platelets 187 thou/uL (152-406); RBC Red Blood Cell Count 3.07 M/uL (3.86-4.86)
[2023-06-20 03:38] LABS: Potassium 4.2 mEq/L (3.5-5.1)
--- NOTE | 2023-06-20 14:31 | EKG ---
Test Date: 2023-06-19 Test Time: 17:42:49 Production Sanitizer: AYESHA MEASUREMENT RESULTS: Intervals: Rate: 74 MS: 226 QRSD: 104 QT: 422 QTc: 468 [place]: P: 93 MS: 226 QRS: -43 T: 58 INTERPRETIVE STATEMENTS: Sinus rhythm with 1st degree AV block Left axis deviation Abnormal ECG Compared to ECG 05/04/2023 10:06:31 Sinus bradycardia no longer present Atrial premature complex(es) no longer present Electronically Signed On 06-20-23 14:30:24 CDT by Andre Arriaga
[2023-06-20] MEDS: FUROSEMIDE 20 MG TABLET PO SCH (16:24)
--- NOTE | 2023-06-20 17:47 | PN ---
Date of Progress Note: 06/20/2023 Patient states he feels much better today. She still has some ecchymoses under her eyes from one of her falls. However, she is much more mobile and definitely orientated. Discussion is made to placem ent, some issues whether she could stay alone due to her multiple falls. This will be discussed with social service, PT and decision will be made depending on her pet situation as well as her medical s ituation. Patient has dogs and they are important to her and she feels in assisted living since they cannot have them whether they could be temporarily housed. So, reasonable request and we will decid e in the next day or so about her placement. Continue on her home meds. Her vascular status is stab le. She has been followed by Cardiology and Nephrology and the blood work does seem to be stable as well. HR/MODL Voice ID: [id number] Report ID: [id number]
[2023-06-20] MEDS: FAMOTIDINE 20 MG TAB PO SCH (20:35)
[2023-06-20] MEDS: ESCITALOPRAM 20 MG TAB PO SCH (20:35)
[2023-06-20] MEDS: PANTOPRAZOLE 40MG TABLET PO SCH (20:35)
[2023-06-20] MEDS ORDERED: HOME MED 1 EA UNK (Famotidine [Famotidine] 40 MG Tablet) PO SCH (21:00)
[2023-06-20] MEDS ORDERED: METOPROLOL TARTRATE 5 MG/5 ML INJ IV STA (21:05)
[2023-06-20] MEDS ORDERED: METOPROLOL TARTRATE 5 MG/5 ML INJ IV ONE (21:19)
[2023-06-20] MEDS: cloNIDine HCL 0.1 MG TAB PO SCH (21:37)
[2023-06-20] MEDS: carvediloL 6.25 MG TAB PO SCH (21:37)
[2023-06-21 04:31] LABS: Potassium 4.3 mEq/L (3.5-5.1)
[2023-06-21] MEDS: LEVOTHYROXINE SOD 0.112 MG TAB PO SCH (05:57)
[2023-06-21] MEDS ORDERED: HOME MED 1 EA UNK (Lovastatin [Lovastatin] 20 MG Tablet) PO SCH (09:00)
[2023-06-21] MEDS: PANTOPRAZOLE 40MG TABLET PO SCH ×2 (09:29→20:17)
[2023-06-21] MEDS: AMLODIPINE 5 MG TAB PO SCH (09:30)
[2023-06-21] MEDS: ESCITALOPRAM 20 MG TAB PO SCH ×2 (09:30→20:19)
[2023-06-21] MEDS: ATORVASTATIN 10 MG TAB PO SCH (09:30)
[2023-06-21] MEDS: ROPINIROLE HCL 1 MG TAB PO SCH ×2 (09:30→20:16)
[2023-06-21] MEDS: cloNIDine HCL 0.1 MG TAB PO SCH ×2 (09:33→20:17)
[2023-06-21] MEDS: FUROSEMIDE 20 MG TABLET PO SCH ×2 (09:33→17:00)
[2023-06-21] MEDS: carvediloL 6.25 MG TAB PO SCH ×2 (09:33→20:19)
[2023-06-21] MEDS ORDERED: FUROSEMIDE 20 MG/ 2ML VIAL IV ONE (09:41)
[2023-06-21] MEDS: IPRATROPIUM BROM 0.5MG/2.5ML NEB SCH ×3 (09:42→19:50)
[2023-06-21] MEDS ORDERED: METOPROLOL TARTRATE 5 MG/5 ML INJ IV STA (12:49)
[2023-06-21] MEDS ORDERED: METOPROLOL TARTRATE 5 MG/5 ML INJ IV ONE (12:57)
[2023-06-21] MEDS ORDERED: AMIODARONE HCL 900 MG in Dextrose 5%-Water 482 ML IV SCH (13:22)
[2023-06-21] MEDS ORDERED: AMIODARONE HCL 150 MG in D5W 100 ML IV STA (13:22)
[2023-06-21] MEDS: LEVALBUTEROL 1.25 MG/3 ML NEB NEB SCH ×2 (14:00→19:50)
--- NOTE | 2023-06-21 14:18 | RAD REPORT ---
EXAM DESCRIPTION: RADChest Single View06/21/2023 2:11 pm CLINICAL HISTORY: chf COMPARISON: Chest Single View dated 06/19/2023; Chest Pa And Lat (2 Views) dated 05/03/2023; Chest Sing le View dated 04/13/2023; Chest Single View dated 03/05/2023 TECHNIQUE: Portable AP view of the chest. FINDINGS: The lungs show no focal consolidation. Right basilar atelectasis and elevation of the righ t hemidiaphragm are stable. Central interstitial prominence is stable. No pneumothorax or effusion. The cardiomediastinal contours are unremarkable. IMPRESSION: Stable findings as above, which may relate to mild central congestion/ CHF.
--- NOTE | 2023-06-21 16:30 | PN ---
Date of Progress Note: 06/21/2023 The patient had episode of rather severe AFib with RVR last night associated with some dyspnea and re quired Lopressor IV to control; however, list of medication and today combining from docto r's office and myself, Cardiology, and Dr. Sanderson and Nephrology, Dr. Bethea, I feel they have tessy en to the source of the problem with her medication which she had been taking at home. In any event, she is stable. She does have a few runs of AFib. She does have a long history of this. We will co nsult Cardiology, Dr. Arriaga here. Unfortunately, he is not on her insurance plan and this is why th ere have been some of the issues with her actual medications. She is very, very confused at times in general and specially in regard to her medications and contributes to her falls and my own feeling i s she needs to be in a different environment; however, due to social situations, she is resisting thi s somewhat. We will see how she improves once her medication is stabilized as far as her placement i s concerned. HR/MODL Voice ID: [id number] Report ID: [id number]
[2023-06-21] MEDS: FUROSEMIDE 20 MG/ 2ML VIAL IV SCH (18:38)
--- NOTE | 2023-06-21 18:42 | CON ---
Reason For Consultation: I was called today to see this patient because of significant shortness of breath and atrial fibrillation with rapid ventricular response. History Of Present Illness: This is an 82-year-old female, who was initially hospitalized on 06/19 a fter a fall and today apparently she went into rapid atrial fibrillation and she was wheezing, in sig nificant respiratory distress. When I entered the room, she was struggling to breathe and I transfer red the patient to ICU on BiPAP and to initiate amiodarone drip. Past Medical History: Dyslipidemia, hypertension, hypothyroidism, chronic kidney disease. Also, the re is history of COPD. Medications: Refer to reconciliation sheet for detailed list. Allergies: MOXIFLOXACIN. Family History: No premature coronary artery disease. Social History: She does not smoke or drink. Does not use any drugs. Review of Systems: All systems reviewed and they were negative except what mentioned in HPI. Physical Examination: Vital Signs: Reviewed. Head and Neck: Pupils are equal, reactive to light. Intact eye movements. No cervical lymphadenopa thy. Neck is supple. Thyroid is not enlarged. Lungs: Diffuse wheezing bilaterally, using accessory muscle. Heart: Tachycardiac, irregularly irregular. Abdomen: Soft, nontender. Bowel sounds positive. No organomegaly. No masses or hernia. No rigidi ty or rebound. Extremities: No clubbing or cyanosis. Intact pulses. Skin: No rash. Neurologic: Alert, awake, oriented x3. No acute focal deficits appreciated. Investigations: BUN 17, creatinine 1.84. On the , she had a troponin of 80.6. Hemoglobin is 8. 8. Assessment And Recommendations: 1.Acute hypoxic respiratory failure. Transfer the patient to ICU and start on BiPAP and likely it i s combination of chronic obstructive pulmonary disease and possible congestive heart failure. Obtain an echo on the patient tomorrow and please obtain a stat chest x-ray to evaluate the need for diures is. In the interim, I recommend start on Lasix 20 mg IV q.12 hours. 2.Atrial fibrillation with rapid ventricular response. Start IV amiodarone load 150 mg over 10 yayo diana and then 1 mg per minute for 6 hours and then 0.5 mg per minute for 16 hours. 3.Elevated troponin. This was not followed through and consult was placed for me today. Repeat tro ponin now and when her respiratory status stabilizes, we will plan for further ischemic workup on her . Thank you for the consult. /DAPHNEY Voice ID: [id number] Report ID: [id number]
[2023-06-21] MEDS: FAMOTIDINE 20 MG TAB PO SCH (20:17)
[2023-06-22] MEDS: IPRATROPIUM BROM 0.5MG/2.5ML NEB SCH ×4 (01:35→19:40)
[2023-06-22] MEDS: LEVALBUTEROL 1.25 MG/3 ML NEB NEB SCH ×4 (01:35→19:40)
[2023-06-22 05:00] LABS: Absolute Lymphocytes (CBC) 1.2 K/uL (0.7-4.9); Hematocrit 32.5 % (36.0-45.0); Lymphocytes % 9.4 % (15.3-44.8); MCV 85.8 fL (80-100); MPV 8.4 fL (7.6-11.3); Platelets 188 thou/uL (152-406); RBC Red Blood Cell Count 3.79 M/uL (3.86-4.86)
[2023-06-22 05:06] LABS: Potassium 4.3 mEq/L (3.5-5.1)
[2023-06-22] MEDS: LEVOTHYROXINE SOD 0.112 MG TAB PO SCH (06:02)
[2023-06-22] MEDS: AMLODIPINE 5 MG TAB PO SCH (09:00)
[2023-06-22] MEDS: cloNIDine HCL 0.1 MG TAB PO SCH ×2 (09:00→20:43)
[2023-06-22] MEDS: ROPINIROLE HCL 1 MG TAB PO SCH ×2 (09:00→20:44)
[2023-06-22] MEDS: APIXABAN 2.5 MG TABLET PO SCH ×3 (09:00→20:43)
--- NOTE | 2023-06-22 09:05 | RAD REPORT ---
EXAM DESCRIPTION: RAD - Chest Single View - 06/22/2023 8:55 am CLINICAL HISTORY: chf COMPARISON: Chest Single View dated 06/21/2023; Chest Single View dated 06/19/2023; Chest Pa And Lat ( 2 Views) dated 05/03/2023; Chest Single View dated 04/13/2023; Thorax Wo Con dated 05/04/2023 FINDINGS: Lines: None. Lungs: Bilateral interstitial and airspace disease seemingly worsened since 06/21/2023. There are malou e differences in radiographic technique. Lung volumes are higher on today's chest radiograph. Pleural: No significant pleural effusions or pneumothorax. Cardiac: Similar enlargement of the cardiopericardial silhouette. Mediastinum: Within normal limits. Bones: No acute fractures. Other: None IMPRESSION: Bilateral interstitial and airspace disease appears worsened compared with 06/21/2023. T his could be secondary to worsening edema and/or multifocal pneumonia.
[2023-06-22] MEDS: AMIODARONE HCL 200 MG TAB PO SCH ×2 (09:43→20:42)
[2023-06-22] MEDS: ESCITALOPRAM 20 MG TAB PO SCH ×2 (09:43→20:44)
[2023-06-22] MEDS: carvediloL 6.25 MG TAB PO SCH ×2 (09:44→20:43)
[2023-06-22] MEDS: PANTOPRAZOLE 40MG TABLET PO SCH ×2 (09:44→20:43)
[2023-06-22] MEDS: FUROSEMIDE 20 MG/ 2ML VIAL IV SCH (09:45)
[2023-06-22] MEDS: ATORVASTATIN 10 MG TAB PO SCH (09:56)
[2023-06-22] MEDS ORDERED: AMIODARONE HCL 900 MG in Dextrose 5%-Water 482 ML IV SCH (12:00)
[2023-06-22] MEDS ORDERED: METOPROLOL TARTRATE 5 MG/5 ML INJ IV STA (15:56)
[2023-06-22] MEDS ORDERED: ALBUMIN HUMAN 25% 12.5 GM, FUROSEMIDE 100 MG in NA CHLORIDE 0.9% 40 ML IV SCH (17:00)
--- NOTE | 2023-06-22 17:16 | EKG ---
Test Date: 2023-06-20 Test Time: 21:20:55 Relations Coordinator: HEG MEASUREMENT RESULTS: Intervals: Rate: 71 ID: [id number] QRSD: 108 QT: 490 QTc: 532 [place]: P: 89 ID: [id number] QRS: -45 T: -69 INTERPRETIVE STATEMENTS: Sinus rhythm with 1st degree AV block Left anterior fascicular block Minimal voltage criteria for LVH, may be normal variant Anteroseptal infarct, age undetermined T wave abnormality, consider inferolateral ischemia Prolonged QT Abnormal ECG Compared to ECG 06/19/2023 17:42:49 Left anterior fascicular block now present Left ventricular hypertrophy now present Myocardial infarct finding now present Electronically Signed On 06-22-23 17:12:16 CDT by Andre Arriaga
[2023-06-22] MEDS ORDERED: FUROSEMIDE 20 MG/ 2ML VIAL IV SCH (18:16)
--- NOTE | 2023-06-22 18:24 | PN ---
Date of Progress Note: 06/22/2023 Subjective: Seen by bedside. Initially, she converted to sinus rhythm. Now, she is back in atrial fibrillation. Review of Systems: No chest pain, but she is short of breath. No nausea, vomiting, diarrhea. No abdominal pain. No dy suria, polyuria, or urinary urgency. No skin rash, headache. All other systems reviewed are negativ e. Objective: Vital signs: Reviewed. Head and Neck: Pupils are equal, reactive to light. Intact eye movements. No cervical lymphadenopa thy. Neck is supple. Thyroid is not enlarged. Lungs: Rhonchi bilaterally. No accessory muscle use or muscle retraction. Heart: Regular rate and rhythm. No extra sounds. Abdomen: Soft, nontender. Bowel sounds positive. No organomegaly. No masses or hernia. No rigidi ty or rebound. Extremities: No clubbing, cyanosis. Intact pulses. Skin: No rash. Neurologic: Alert, awake, oriented x3. No gross focal deficits appreciated. Investigations: BUN is 19, creatinine 1.88, and hemoglobin is 10.2. Assessment/recommendations: 1.Atrial fibrillation with rapid ventricular response. She converted to sinus rhythm. Once the ami odarone 24 hours load is completed, switch to oral 200 mg twice a day and monitor on telemetry and co ntinue beta-vivian and Eliquis at 2.5 mg twice a day. 2.Severe chronic obstructive pulmonary disease exacerbation with respiratory failure. Maybe there i s a mild component of heart failure to that. She is being diuresed gently. To monitor BUN, creatinine, electrolytes. 3.Elevated troponin. Re-evaluate troponin now and plan accordingly. SR/MODL Voice ID: [id number] Report ID: [id number]
[2023-06-22] MEDS: FAMOTIDINE 20 MG TAB PO SCH (20:44)
[2023-06-23] MEDS: LEVALBUTEROL 1.25 MG/3 ML NEB NEB SCH ×4 (01:30→19:45)
[2023-06-23] MEDS: IPRATROPIUM BROM 0.5MG/2.5ML NEB SCH ×4 (01:30→19:45)
[2023-06-23] MEDS ORDERED: DICYCLOMINE HCL 10 MG CAP PO PRN (04:04)
[2023-06-23] MEDS ORDERED: DICYCLOMINE HCL 10 MG CAP ONE (04:29)
[2023-06-23] MEDS: LEVOTHYROXINE SOD 0.112 MG TAB PO SCH (05:54)
[2023-06-23] MEDS: cloNIDine HCL 0.1 MG TAB PO SCH ×2 (08:16→20:46)
[2023-06-23] MEDS: ESCITALOPRAM 20 MG TAB PO SCH ×2 (08:16→20:45)
[2023-06-23] MEDS: ATORVASTATIN 10 MG TAB PO SCH (08:17)
[2023-06-23] MEDS: carvediloL 6.25 MG TAB PO SCH ×2 (08:17→20:47)
[2023-06-23] MEDS: PANTOPRAZOLE 40MG TABLET PO SCH ×2 (08:17→20:46)
[2023-06-23] MEDS: AMIODARONE HCL 200 MG TAB PO SCH ×2 (08:17→20:45)
[2023-06-23] MEDS: AMLODIPINE 5 MG TAB PO SCH (08:17)
[2023-06-23] MEDS: APIXABAN 2.5 MG TABLET PO SCH ×2 (08:18→20:46)
[2023-06-23] MEDS ORDERED: ALPRAZOLAM 0.5 MG TABLET PO ONE (17:20)
[2023-06-23] MEDS: ROPINIROLE HCL 1 MG TAB PO SCH (20:45)
[2023-06-23] MEDS: FAMOTIDINE 20 MG TAB PO SCH (20:45)
[2023-06-24] MEDS: LEVALBUTEROL 1.25 MG/3 ML NEB NEB SCH ×4 (00:35→19:40)
[2023-06-24] MEDS: IPRATROPIUM BROM 0.5MG/2.5ML NEB SCH ×4 (00:35→19:40)
--- NOTE | 2023-06-24 00:40 | P.PN ---
Subjective Date of Service: 06/22/23 Subjective: No new changes, No C/O voiced Chart has been reviewed. Events of the last 24 hours have been noted. Spoke with Dr. elder. This working on penitentiary facility placement. Patient was seen by Cardiology and because patient was in atrial fibrillation with rapid ventricular response and respiratory distress patient was transferred to the ICU. Patient has been started on amiodarone drip. Continue with monitor cardiac status. Continue with physical therapy. Currently on BiPAP and will wean patient off BiPAP support. Review of Systems 10-point ROS is otherwise unremarkable Physical Examination - Vital Signs Temperature: 97.1 F Blood Pressure: 121/64 Pulse: 60 Respirations: 21 Pulse Ox (%): 93 - Physical Exam General: Alert, In no apparent distress, Acute distress HEENT: Atraumatic, PERRLA, EOMI Neck: Supple, JVD not distended Respiratory: Crackles/rales, Expiratory wheezes Cardiovascular: Normal S1 S2, Irregular heart rate/rhythm Gastrointestinal: Normal bowel sounds, Soft and benign, Non-distended, No tenderness Musculoskeletal: No clubbing, No tenderness, Swelling Integumentary: Other (bruising) Neurological: Sensation intact, Cranial nerves 3-12 intact, Other (DIXON) - Studies Medications List Reviewed: Yes Assessment & Plan - Problems (Diagnosis) (1) Atrial fibrillation with RVR Current Visit: Yes Status: Acute (2) COPD (chronic obstructive pulmonary disease) with emphysema Current Visit: Yes Status: Acute (3) CKD (chronic kidney disease) Onset Date: 10/03/17 Current Visit: No Status: Acute (4) Hypertension Onset Date: 10/03/17 Current Visit: No Status: Acute (5) Hypothyroid Onset Date: 10/03/17 Current Visit: No Status: Acute (6) Benign hypertension Current Visit: No Status: Chronic (7) Restless leg syndrome Onset Date: 10/03/17 Current Visit: No Status: Chronic - Plan Plan: 1. Continue amiodarone drip 2. BiPAP as needed for respiratory support 3. Physical therapy evaluation 4. Waiting for penitentiary facility placement 5. Gentle diuresing 6. Monitor labs and renal function 7. GI DVT prophylaxis Discharge Plan: Home Plan to discharge in: Greater than 2 days - Advance Directives Does patient have a Living Will: No Does patient have a Durable POA for Healthcare: No - Code Status/Comfort Care Code Status Assessed: Yes Code Status: Full Code Critical Care: No Time Spent Managing PTS Care (In Minutes): 35
[2023-06-24] MEDS: LEVOTHYROXINE SOD 0.112 MG TAB PO SCH (06:26)
--- NOTE | 2023-06-24 07:14 | RAD REPORT ---
EXAM DESCRIPTION: RAD - Chest Single View - 06/24/2023 6:55 am CLINICAL HISTORY: pneumonia COMPARISON: Chest Single View dated 06/22/2023; Chest Single View dated 06/21/2023; Chest Single View dated 06/19/2023; Chest Pa And Lat (2 Views) dated 05/03/2023; Thorax Wo Con dated 05/04/2023 FINDINGS: Lines: None. Lungs: Similar widespread bilateral interstitial and airspace disease. Pleural: No significant pleural effusions or pneumothorax. Cardiac: Cardiomegaly. Mediastinum: Within normal limits. Bones: No acute fractures. Left shoulder arthroplasty. Other: None IMPRESSION: Similar widespread airspace disease likely reflecting edema and/or pneumonia.
[2023-06-24 07:23] LABS: Absolute Lymphocytes (CBC) 1.3 K/uL (0.7-4.9); Hematocrit 28.2 % (36.0-45.0); Lymphocytes % 14.2 % (15.3-44.8); MCV 86.2 fL (80-100); MPV 8.3 fL (7.6-11.3); Platelets 192 thou/uL (152-406); RBC Red Blood Cell Count 3.27 M/uL (3.86-4.86)
[2023-06-24 07:48] LABS: Albumin 2.6 g/dL (3.4-5.0); Bilirubin Total 0.5 mg/dL (0.2-1.0); Magnesium 2.3 mg/dL (1.6-2.4); Phosphorus 3.1 mg/dL (2.5-4.9); Potassium 3.6 mEq/L (3.5-5.1); Protein, Total 6.1 g/dL (6.4-8.2)
[2023-06-24] MEDS: ESCITALOPRAM 20 MG TAB PO SCH ×2 (09:57→20:35)
[2023-06-24] MEDS: APIXABAN 2.5 MG TABLET PO SCH ×2 (09:57→20:35)
[2023-06-24] MEDS: cloNIDine HCL 0.1 MG TAB PO SCH ×2 (09:57→20:35)
[2023-06-24] MEDS: AMLODIPINE 5 MG TAB PO SCH (09:57)
[2023-06-24] MEDS: AMIODARONE HCL 200 MG TAB PO SCH ×2 (09:57→20:35)
[2023-06-24] MEDS: ATORVASTATIN 10 MG TAB PO SCH (09:57)
[2023-06-24] MEDS: PANTOPRAZOLE 40MG TABLET PO SCH ×2 (09:58→20:35)
[2023-06-24] MEDS: carvediloL 6.25 MG TAB PO SCH ×2 (10:00→20:36)
--- NOTE | 2023-06-24 16:20 | P.PN ---
Date of Service: 06/23/23 Subjective Chart has been reviewed. Events of the last 24 hours have been noted. Spoke with Dr. elder. This working on prison facility placement. Patient was seen by Cardiology and because patient was in atrial fibrillation with rapid ventricular response and respiratory distress patient was transferred to the ICU. Patient has been started on amiodarone drip. Continue with monitor cardiac status. Continue with physical therapy. Currently on BiPAP and will wean patient off BiPAP support. Physical Examination - Vital Signs reviewed - Physical Exam General: Alert, In no apparent distress, Acute distress Respiratory: Crackles/rales, Expiratory wheezes Cardiovascular: Normal S1 S2, Irregular heart rate/rhythm Gastrointestinal: Normal bowel sounds, Soft and benign, Non-distended, No tenderness Musculoskeletal: No clubbing, No tenderness, Swelling Integumentary: Other (bruising) Neurological: no focal deficits (DIXON) - Studies Medications List Reviewed: Yes Assessment & Plan - Problems (Diagnosis) (1) Atrial fibrillation with RVR Current Visit: Yes Status: Acute (2) COPD (chronic obstructive pulmonary disease) with emphysema Current Visit: Yes Status: Acute (3) CKD (chronic kidney disease) Onset Date: 10/03/17 Current Visit: No Status: Acute (4) Hypertension Onset Date: 10/03/17 Current Visit: No Status: Acute (5) Hypothyroid Onset Date: 10/03/17 Current Visit: No Status: Acute (6) Benign hypertension Current Visit: No Status: Chronic (7) Restless leg syndrome Onset Date: 10/03/17 Current Visit: No Status: Chronic - Plan Continue with POC as mentioned below: 1. Continue amiodarone drip 2. BiPAP as needed for respiratory support 3. Physical therapy evaluation 4. Waiting for prison facility placement 5. Gentle diuresing 6. Monitor labs and renal function 7. GI DVT prophylaxis Discharge Plan: Home Plan to discharge in: Greater than 2 days - Advance Directives Does patient have a Living Will: No Does patient have a Durable POA for Healthcare: No - Code Status/Comfort Care Code Status Assessed: Yes Code Status: Full Code Critical Care: No Time Spent Managing PTS Care (In Minutes): 35
--- NOTE | 2023-06-24 17:08 | P.PN ---
Date of Service: 06/24/23 Subjective Doing well with no new complaints. Patient is more awake and alert. We wanted patient to go to jail facility but we have to resubmit authorization in the morning. Otherwise, patient is clinically doing well. We will continue with physical therapy and will continue with cardiac meds at this time. Physical Examination - Vital Signs reviewed - Physical Exam General: Alert, In no apparent distress, Acute distress Respiratory: End expiratory wheezing but otherwise clear Cardiovascular: Normal S1 S2, Irregular heart rate/rhythm Gastrointestinal: Normal bowel sounds, Soft and benign, Non-distended, No tenderness Musculoskeletal: No clubbing, No tenderness, Swelling Integumentary: Other (bruising); wound around IV site Neurological: no focal deficits (DIXON) - Studies Medications List Reviewed: Yes Assessment & Plan - Problems (Diagnosis) (1) Atrial fibrillation with RVR Current Visit: Yes Status: Acute (2) COPD (chronic obstructive pulmonary disease) with emphysema Current Visit: Yes Status: Acute (3) CKD (chronic kidney disease) Onset Date: 10/03/17 Current Visit: No Status: Acute (4) Hypertension Onset Date: 10/03/17 Current Visit: No Status: Acute (5) Hypothyroid Onset Date: 10/03/17 Current Visit: No Status: Acute (6) Benign hypertension Current Visit: No Status: Chronic (7) Restless leg syndrome Onset Date: 10/03/17 Current Visit: No Status: Chronic - Plan Continue with POC as mentioned below: 1. Continue oral amiodarone 200 mg twice a day 2. BiPAP as needed for respiratory support: O2-2 L by nasal cannula 3. Physical therapy evaluation 4. Waiting for jail facility placement; we need to resubmit authorization 5. Gentle diuresing 6. Monitor labs and renal function 7. GI DVT prophylaxis Discharge Plan: Home Plan to discharge in: Greater than 2 days - Advance Directives Does patient have a Living Will: No Does patient have a Durable POA for Healthcare: No - Code Status/Comfort Care Code Status Assessed: Yes Code Status: Full Code Critical Care: No Time Spent Managing PTS Care (In Minutes): 35
[2023-06-24] MEDS: ROPINIROLE HCL 1 MG TAB PO SCH (20:35)
[2023-06-24] MEDS: CEFDINIR 300 MG CAP PO SCH (20:58)
[2023-06-24] MEDS: FAMOTIDINE 20 MG TAB PO SCH (20:59)
[2023-06-25] MEDS: LEVALBUTEROL 1.25 MG/3 ML NEB NEB SCH ×4 (01:05→19:41)
[2023-06-25] MEDS: IPRATROPIUM BROM 0.5MG/2.5ML NEB SCH ×4 (01:05→19:41)
[2023-06-25 04:58] LABS: Absolute Lymphocytes (CBC) 1.3 K/uL (0.7-4.9); Hematocrit 27.5 % (36.0-45.0); Lymphocytes % 14.4 % (15.3-44.8); MCV 85.4 fL (80-100); MPV 8.4 fL (7.6-11.3); Platelets 196 thou/uL (152-406); RBC Red Blood Cell Count 3.22 M/uL (3.86-4.86)
[2023-06-25 05:17] LABS: Potassium 3.9 mEq/L (3.5-5.1)
[2023-06-25] MEDS: LEVOTHYROXINE SOD 0.112 MG TAB PO SCH (06:04)
[2023-06-25] MEDS ORDERED: carvediloL 6.25 MG TAB PO SCH (08:00)
[2023-06-25] MEDS: AMIODARONE HCL 200 MG TAB PO SCH ×2 (08:59→21:49)
[2023-06-25] MEDS: ATORVASTATIN 10 MG TAB PO SCH (09:00)
[2023-06-25] MEDS: carvediloL 25 MG TAB PO SCH ×2 (09:00→16:53)
[2023-06-25] MEDS: ESCITALOPRAM 20 MG TAB PO SCH ×2 (09:00→21:49)
[2023-06-25] MEDS: AMLODIPINE 5 MG TAB PO SCH (09:00)
[2023-06-25] MEDS: APIXABAN 2.5 MG TABLET PO SCH ×2 (09:00→21:49)
[2023-06-25] MEDS: PANTOPRAZOLE 40MG TABLET PO SCH ×2 (09:01→21:49)
[2023-06-25] MEDS: FUROSEMIDE 20 MG TABLET PO SCH ×2 (09:01→16:54)
--- NOTE | 2023-06-25 09:02 | PN ---
Date of Progress Note: 06/25/2023 Subjective: Seen by bedside. Doing clinically well respiratory hernandez, but she is back in atrial fibr illation and heart rate is in the low 100s. Review of Systems: Positive shortness of breath and wheezing. No cough. No orthopnea. No nausea, vomiting, diarrhea. No abdominal pain. No dysuria, polyuria, or urinary urgency. No skin rash, headache. All other sy stems reviewed, they were negative. Physical Examination: Vital signs: Reviewed. Head and Neck: Pupils are equal, reactive to light. Intact eye movements. No JVD. No cervical lym phadenopathy. Neck: Supple. Thyroid is not enlarged. Lungs: With scattered wheezing bilaterally. No accessory muscle use or muscle retraction. Heart: Irregularly irregular. No extra sounds. Abdomen: Soft, nontender. Bowel sounds positive. No organomegaly. No masses or hernia. No rigidi ty or rebound. Extremities: No edema, clubbing, cyanosis. Intact pulses. Skin: No rashes. Neurologic: Alert, awake, and oriented x3. No gross focal deficits appreciated. Lymph Nodes: No cervical or axillary lymphadenopathy. Investigation: BUN is 35, creatinine 1.91, hemoglobin 9.2. Assessment/recommendation: 1.Atrial fibrillation. Rate is still slightly fast. Increase Coreg to 25 mg twice a day and low-do se Eliquis and continue amiodarone by mouth. 2.Hypertension. Blood pressure is controlled now. 3.We will discontinue the clonidine patches. 4.Chronic heart failure. Start her on Lasix 20 mg by mouth daily and obtain an echo today. 5.Hypertension. Blood pressure is better. Discontinue clonidine and add Lasix as outlined above. SR/MODL Voice ID: [id number] Report ID: [id number]
[2023-06-25] MEDS: CEFDINIR 300 MG CAP PO SCH ×2 (09:04→21:49)
--- NOTE | 2023-06-25 12:00 | PN ---
Date of Progress Note: 06/23/2023 Subjective: Seen by bedside. Breathing status is better. Review of Systems: No chest pain. Has shortness of breath and mild wheezing. No nausea, vomiting, or diarrhea. All ot her systems were reviewed, they were negative. Objective: Vital Signs: Reviewed. Head and Neck: Pupils are equal, reactive to light. Intact eye movements. No cervical lymphadenopa thy. No JVD. Lungs: Decreased breathing sounds with wheezing bilaterally. No accessory muscle use or muscle retr action. Heart: Irregularly irregular. No extra sounds. Abdomen: Soft, nontender. Bowel sounds positive. No organomegaly. No masses or hernia. No rigidi ty or rebound. Extremities: No clubbing or cyanosis. Intact pulses. Skin: No rashes. Neurologic: Alert, awake, and oriented x3. No acute focal deficits appreciated. Lymph Nodes: No cervical or axillary lymphadenopathy. Investigations: BUN is 19, creatinine 1.88. Assessment And Recommendations: 1.Atrial fibrillation, now it is controlled. Continue current therapy with amiodarone by mouth and beta-vivian as well as Eliquis 2.5 mg twice a day. 2.Acute hypoxic respiratory failure due to severe chronic obstructive pulmonary disease exacerbation , responded very well to BiPAP and current management with bronchodilators. 3.Congestive heart failure. It is chronic. I will hold the Lasix as she does not appear to be flui d overloaded. SR/MODL Voice ID: [id number] Report ID: [id number]
--- NOTE | 2023-06-25 13:34 | ECHO ---
HEIGHT: 4 ft 11 in WEIGHT: 167 lb 8 oz DATE OF STUDY: 06/25/[address]: Andre Arriaga 2-DIMENSIONAL: YES M.MODE: YES DOPPLER: YES COLOR FLOW: YES TDS: NO PORTABLE: YES DEFINITY: NO BUBBLE STUDY: NO DIAGNOSIS: CONGESTIVE HEART FAILURE CARDIAC HISTORY: CATHERIZATION: SURGERY: PROSTHETIC VALVE: PACEMAKER: MEASUREMENTS (cm) DIASTOLIC (NORMALS) SYSTOLIC (NORMALS) IVSd 1.2 (0.6-1.2) LA Diam 4.4 (1.9-4.0) LVEF 40% LVIDd 4.6 (3.5-5.7) LVIDs 3.2 (2.0-3.5) %FS 30% LVPWd 1.4 (0.6-1.2) Ao Diam 2.9 (2.0-3.7) 2 DIMENSIONAL ASSESSMENT: RIGHT ATRIUM: NORMAL LEFT ATRIUM: ENLARGED RIGHT VENTRICLE: NORMAL LEFT VENTRICLE: DEPRESSED EF TRICUSPID VALVE: MILD TRICUSPID REGURGITATION MITRAL VALVE: NORMAL PULMONIC VALVE: NORMAL AORTIC VALVE: MILD AORTIC REGURGITATION PERICARDIAL EFFUSION: NONE AORTIC ROOT: NORMAL LEFT VENTRICULAR WALL MOTION: APICAL HYPOKINEISIS. DOPPLER/COLOR FLOW: SEE BELOW. COMMENTS: 1. MILDLY DEPRESSED LEFT VENTRICULAR EJECTION FRACTION 40-45%. 2. APICAL HYPOKINEISIS. 3. LEFT ATRIAL ENLARGEMENT. 4. MILD TRICUSPID REGURGITATION. TECHNOLOGIST: Robson SNEED
--- NOTE | 2023-06-25 19:36 | P.PN ---
Subjective Date of Service: 06/25/23 Primary Care Provider: Johnathan Chief Complaint: Afib RVR, CHF Subjective: Improving Subjective Feeling much better today tolerating nasal cannula, no new complaints <Yosvany Arguelles - Last Filed: 06/25/23 19:32> Date of Service: 06/25/23 <Davide Doyle - Last Filed: 06/25/23 20:13> Review of Systems 10-point ROS is otherwise unremarkable General: Weakness Respiratory: Shortness of Breath <Yosvany Arguelles - Last Filed: 06/25/23 19:32> Physical Examination - Vital Signs Temperature: 96.9 F Blood Pressure: 130/72 Pulse: 64 Respirations: 17 Pulse Ox (%): 90 - Physical Exam General: Alert, In no apparent distress, Oriented x3 HEENT: Atraumatic, PERRLA, EOMI Neck: Supple, JVD not distended Respiratory: Clear to auscultation bilaterally, Normal air movement Cardiovascular: Regular rate/rhythm, Normal S1 S2 Capillary refill: <2 Seconds Gastrointestinal: Normal bowel sounds, No tenderness Musculoskeletal: No tenderness Integumentary: No rashes Neurological: Normal speech, Normal tone, Normal affect - Studies Medications List Reviewed: Yes <Yosvany Arguelles - Last Filed: 06/25/23 19:32> Assessment And Plan - Plan Assessment: Atrial fibrillation with rapid ventricular responseresolved Acute on chronic systolic congestive heart failure CKD 4 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 Currently sinus bradycardia in the 50s. Acute on chronic systolic congestive heart failure Echocardiogram performed on 06/25/2023 with EF of 40 to 45%. Continue gentle diuresis. CKD 4 Similar to baseline, continue gentle diuresis. 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 Hypertension Hypothyroidism Restless leg syndrome Home medications continued. DVT PPX: Eliquis Code status: Full Discharge Plan: [facility] Plan to discharge in: 48 Hours Critical Care: No Time Spent Managing PTS Care (In Minutes): 25 <Yosvany Arguelles - Last Filed: 06/25/23 19:32> Physician Review: Patient Assessed, Agree with Above Assessment and Plan <Davide Doyle - Last Filed: 06/25/23 20:13>
[2023-06-25] MEDS: ROPINIROLE HCL 1 MG TAB PO SCH (21:49)
[2023-06-25] MEDS: FAMOTIDINE 20 MG TAB PO SCH (21:49)
[2023-06-26] MEDS: IPRATROPIUM BROM 0.5MG/2.5ML NEB SCH ×4 (01:45→19:45)
[2023-06-26] MEDS: LEVALBUTEROL 1.25 MG/3 ML NEB NEB SCH ×4 (01:45→19:45)
[2023-06-26] MEDS: LEVOTHYROXINE SOD 0.112 MG TAB PO SCH (05:42)
[2023-06-26] MEDS: CEFDINIR 300 MG CAP PO SCH ×2 (09:49→20:27)
[2023-06-26] MEDS: ESCITALOPRAM 20 MG TAB PO SCH ×2 (09:49→20:27)
[2023-06-26] MEDS: FUROSEMIDE 20 MG TABLET PO SCH ×2 (09:50→16:58)
[2023-06-26] MEDS: ATORVASTATIN 10 MG TAB PO SCH (09:50)
[2023-06-26] MEDS: APIXABAN 2.5 MG TABLET PO SCH ×2 (09:50→20:27)
[2023-06-26] MEDS: PANTOPRAZOLE 40MG TABLET PO SCH ×2 (09:50→20:27)
[2023-06-26] MEDS: AMLODIPINE 5 MG TAB PO SCH (09:50)
[2023-06-26] MEDS: AMIODARONE HCL 200 MG TAB PO SCH ×2 (09:51→20:27)
[2023-06-26] MEDS: carvediloL 25 MG TAB PO SCH ×2 (09:51→16:57)
--- NOTE | 2023-06-26 17:41 | PN ---
Subjective: Seen by bedside. She is doing significantly better. Review of Systems: Mild wheezing and shortness of breath. No nausea or vomiting. No diarrhea. No chest pain. All oth er systems reviewed, they were negative. Physical Examination: Vital signs: Reviewed. Head and Neck: Pupils are equal, reactive to light. Intact eye movements. No JVD. No cervical lym phadenopathy. Neck is supple. Thyroid is not enlarged. Lungs: Clear to auscultation bilaterally. Scattered wheezing. No accessory muscle use or muscle re traction. Heart: Regular rate and rhythm. No extra sounds. Abdomen: Soft, nontender. Bowel sounds positive. No organomegaly. No masses or hernia. No rigidi ty or rebound. Extremities: No edema, clubbing, or cyanosis. Intact pulses. Skin: No rashes. Neurologic: Alert, awake, oriented x3. No acute focal deficits appreciated. Investigation: Labs were reviewed. Assessment And Recommendations: 1.Atrial fibrillation, controlled now. Continue current management with amiodarone and carvedilol. 2.Hypertension. Blood pressure is significantly better. 3.Acute hypoxic respiratory failure due to chronic obstructive pulmonary disease exacerbation and im proving. 4.Elevated troponin, mildly elevated, likely demand ischemia. Plan for outpatient stress test. /MILESL Voice ID: [id number] Report ID: [id number]
--- NOTE | 2023-06-26 19:56 | P.PN ---
Subjective Date of Service: 06/26/23 Primary Care Provider: Johnathan Chief Complaint: Afib RVR, CHF No new events. She reports generalized weakness. She is pending placement into [facility]. Appreciate CM assistance. Review of Systems 10-point ROS is otherwise unremarkable General: Weakness (generalized) Physical Examination - Vital Signs Temperature: 97.6 F Blood Pressure: 130/62 Pulse: 55 Respirations: 20 Pulse Ox (%): 98 - Physical Exam General: Alert, In no apparent distress, Oriented x3 HEENT: Atraumatic, Mucous membr. moist/pink, Sclerae nonicteric Neck: JVD not distended Respiratory: Clear to auscultation bilaterally, Diminished Cardiovascular: No edema, Regular rate/rhythm, Normal S1 S2, No gallops, No rubs, No murmurs Gastrointestinal: Normal bowel sounds, Soft and benign, Non-distended, No tenderness, No rebound, No guarding Musculoskeletal: No clubbing Integumentary: No rashes Neurological: Normal speech, Normal affect - Studies Medications List Reviewed: Yes Assessment And Plan - Plan # Paroxysmal Atrial Fibrillation with Rapid Ventricular Response - improved - Cardiology consulted - recommendations appreciated - Continue carvedilol, amiodarone, apixaban # Acute on Chronic Decompensated Systolic Congestive Heart Failure with Reduced Ejection Fraction - improved # Moderate Pulmonary Hypertension # Hypertension - Consult Cardiology - recommendations appreciated - Transthoracic echocardiogram = "1. mildly depressed left ventricular ejection fraction 40-45%. 2. apical hypokineisis. 3. left atrial enlargement. 4. mild tricuspid regurgitation." - Diuresis per Cardiology - Daily weights - Strict I/O - Cardiac diet, 2 L fluid restriction, 2 g Na restriction # Suspect Demand Ischemia (Type II Non-ST Segment Elevation Myocardial Infarction) due to above - Cardiology consulted - recommendations appreciated - EKG without STEMI criteria - Serial troponin = 80.6 -> 827.9 -> 154.6 - Monitor telemetry # Chronic Kidney Disease Stage IV # Anemia of Chronic Kidney Disease - Creatinine stable - Monitor creatinine and urine output - If worsening, obtain renal ultrasound - Renally dose medications # Chronic Respiratory Failure due to Chronic Obstructive Pulmonary Disease on Home Oxygen (4 L) - No evidence of acute exacerbation - Continue home medications # Dyslipidemia - Continue atorvastatin # Hypothyroidism - Continue home levothyroxine # Depression - Continue home escitalopram # Restless Leg Syndrome - Continue home ropinirole Davide Doyle M.D.
[2023-06-26] MEDS: ROPINIROLE HCL 1 MG TAB PO SCH (20:27)
[2023-06-26] MEDS: FAMOTIDINE 20 MG TAB PO SCH (20:27)
[2023-06-26 23:45] VITALS: BMI 31.8
[2023-06-27] MEDS: LEVALBUTEROL 1.25 MG/3 ML NEB NEB SCH ×4 (01:15→19:38)
[2023-06-27] MEDS: IPRATROPIUM BROM 0.5MG/2.5ML NEB SCH ×4 (01:15→19:38)
[2023-06-27 04:33] LABS: Potassium 4.4 mEq/L (3.5-5.1)
[2023-06-27] MEDS: LEVOTHYROXINE SOD 0.112 MG TAB PO SCH (05:30)
[2023-06-27] MEDS ORDERED: FUROSEMIDE 20 MG TABLET PO SCH (09:00)
[2023-06-27] MEDS: ATORVASTATIN 10 MG TAB PO SCH (09:41)
[2023-06-27] MEDS: ESCITALOPRAM 20 MG TAB PO SCH ×2 (09:42→21:48)
[2023-06-27] MEDS: carvediloL 25 MG TAB PO SCH ×2 (09:42→16:41)
[2023-06-27] MEDS: CEFDINIR 300 MG CAP PO SCH ×2 (09:42→21:47)
[2023-06-27] MEDS: AMLODIPINE 5 MG TAB PO SCH (09:42)
[2023-06-27] MEDS: AMIODARONE HCL 200 MG TAB PO SCH ×2 (09:42→21:48)
[2023-06-27] MEDS: PANTOPRAZOLE 40MG TABLET PO SCH ×2 (09:42→21:48)
[2023-06-27] MEDS: APIXABAN 2.5 MG TABLET PO SCH ×2 (09:42→21:48)
--- NOTE | 2023-06-27 11:39 | RAD REPORT ---
EXAM DESCRIPTION: RAD - Hip Right 1 View - 06/27/2023 10:57 am CLINICAL HISTORY: pain COMPARISON: Hip Right 2 View dated 08/18/2018 TECHNIQUE: Right hip, AP view FINDINGS: There is no fracture or dislocation. Mild right hip joint degenerative changes. No acute o r destructive bony process seen. IMPRESSION: No acute findings of the right hip.
--- NOTE | 2023-06-27 12:36 | CON ---
Date of Consultation: 06/27/2023 Reason For Consultation: Elevated BUN and creatinine, fluid management. History Of Present Illness: This is an 82-year-old female, well known to me from the office with significant past medical history of hypertension, hyperlipidemia, COPD, chronic kidney disease stage 3B/4 secondary to cardiorenal and hypertension nephrosclerosis, COPD, hyperlipidemia, congestive heart failure, diastolic dysfunction, preserved ejection fraction, the patient came to the hospital after fall and hit her head, then the patient started having shortness of breath and increased leg swelling. The patient was started on Lasix drip, then switched to pulse Lasix. The patient's kidney function continued to decline. For that reason, we have been consulted. The patient denied taking any nonsteroidal, no IV contrast. Upon arrival to the hospital, creatinine was 1.8, currently 2.3. The patient denied any fever or chills. No rashes. Past Medical History: Includes; 1. Hypertension. 2. Chronic kidney disease stage 3 B/4 secondary to cardiorenal. 3. Hyperlipidemia. 4. Congestive heart failure, diastolic dysfunction with preserved ejection fraction. Allergies: TO ADHESIVE. Past Surgical History: Includes cholecystectomy, knee surgery, breast reduction, shoulder surgery. Family History: Positive for cancer. Social History: Denied smoking, denied drinking, denied drugs abuse. Family History: Positive for cancer. Review of Systems: Head and Neck: No red eye. No ear pain. GI: No nausea. No vomiting. : No polyuria. No dysuria. No hematuria. Media Liaison Officer: No vaginal discharge. Respiratory: Has shortness of breath. Cardiovascular: Has orthopnea. Endocrine: No polydipsia. Skin: No rash. Neuro: Has weakness. Has fall. Musculoskeletal: Has neck pain and leg pain. Physical Examination: Vital Signs: Blood pressure 136/67, pulse of 63, afebrile. Chest: Crackles bilateral. Heart: S1, S2. Systolic murmur. Abdomen: Soft, nontender. Extremity: Plus edema. Neurologic: Alert. No focality. Laboratory Data: Sodium 137, potassium 4.4, bicarb 32, BUN 36, creatinine 2.3, GFR 21, calcium 8.6, hemoglobin 9.2. Current Medications: The patient on include; 1. Amiodarone. 2. Amlodipine 5 mg. 3. Carvedilol 25. 4. Lasix 20 b.i.d. 5. Pepcid. 6. Pantoprazole. 7. Levothyroxine. Assessment And Plan: 1. Acute kidney injury on chronic kidney disease. The acute component of kidney injury is secondary to cardiorenal. Currently, the patient over volume. I am going to go ahead and increase Lasix to 40 b.i.d. to establish better volume control and we will follow up the patient. 2. Hypertension, controlled, optimal. We will utilize blood pressure for more diuresis. 3. Edema possible secondary to calcium channel vivian/heart failure. I am going to hold on the amlodipine for the time being and we will increase the Lasix and we will follow up on repeated TSH. 4. Fall with head injury as by primary. 5. Chronic kidney disease, stage 4 secondary to cardiorenal with acute kidney injury as above. Thank you, Dr. Doyle for allowing us to participate in the care of your patient. Time spent examining the patient [id number], reviewing data, lab and radiology, placing order, discussing the case with the patient, discussing the case with the swat team member including the hospitalist and nursing staff more than 35 minutes. BURTON Voice ID: [id number] Report ID: [id number] CAITLYN
[2023-06-27] MEDS: FUROSEMIDE 40 MG/4 ML VIAL IV SCH ×2 (17:00→17:20)
--- NOTE | 2023-06-27 17:26 | P.PN ---
Subjective Date of Service: 06/27/23 Primary Care Provider: Johnathan Chief Complaint: Afib RVR, CHF No new events. She reports right hip pain, but denies any recent injury to hip. Will obtian x-ray. She is pending placement into [facility] - appreciate CM assistance. Review of Systems 10-point ROS is otherwise unremarkable General: Weakness (generalized) Musculoskeletal: Leg Pain (right hip) Physical Examination - Vital Signs Temperature: 97.6 F Blood Pressure: 113/53 Pulse: 53 Respirations: 17 Pulse Ox (%): 95 - Studies Medications List Reviewed: Yes Assessment And Plan - Plan - Physical Exam General: Alert, In no apparent distress, Oriented x3 HEENT: Atraumatic, Mucous membr. moist/pink, Sclerae nonicteric Neck: JVD not distended Respiratory: Clear to auscultation bilaterally, Diminished Cardiovascular: No edema, Regular rate/rhythm, No murmurs Gastrointestinal: Normal bowel sounds, Soft, Non-distended, No tenderness Integumentary: No rashes Neurological: Normal speech, Normal affect # Deconditioning complicated by Recurrent Mechanical Falls - PT consulted - Pending placement into SNF - appreciate CM assistance # Paroxysmal Atrial Fibrillation with Rapid Ventricular Response - improved - Cardiology consulted - recommendations appreciated - Continue carvedilol, amiodarone, apixaban # Acute on Chronic Decompensated Systolic Congestive Heart Failure with Reduced Ejection Fraction - improved # Moderate Pulmonary Hypertension # Hypertension - Consult Cardiology - recommendations appreciated - Transthoracic echocardiogram = "1. mildly depressed left ventricular ejection fraction 40-45%. 2. apical hypokineisis. 3. left atrial enlargement. 4. mild tricuspid regurgitation." - Diuresis per Cardiology - Daily weights - Strict I/O - Cardiac diet, 2 L fluid restriction, 2 g Na restriction # Suspect Demand Ischemia (Type II Non-ST Segment Elevation Myocardial Infarction) due to above - Cardiology consulted - recommendations appreciated - EKG without STEMI criteria - Serial troponin = 80.6 -> 827.9 -> 154.6 - Monitor telemetry # Chronic Kidney Disease Stage IV # Anemia of Chronic Kidney Disease - Creatinine stable - Monitor creatinine and urine output - If worsening, obtain renal ultrasound - Renally dose medications # Chronic Respiratory Failure due to Chronic Obstructive Pulmonary Disease on Home Oxygen (4 L) - No evidence of acute exacerbation - Continue home medications # Dyslipidemia - Continue atorvastatin # Hypothyroidism - Continue home levothyroxine # Depression - Continue home escitalopram # Restless Leg Syndrome - Continue home ropinirole Davide Doyle M.D.
[2023-06-27] MEDS: HYDROCODONE/APAP 5/325 MG TAB PO PRN (17:33)
--- NOTE | 2023-06-27 19:27 | PN ---
Date of Progress Note: 06/27/2023 Subjective: Seen by bedside. Doing clinically well. Breathing is better. Review of Systems: No chest pain. She has shortness of breath and wheezing. No nausea, vomiting, diarrhea. No abdomin al pain. No dysuria, polyuria, or urinary urgency. No skin rash, headache. All other systems revie wed and they were negative. Physical Examination: Vital Signs: Reviewed. Head and Neck: Pupils are equal, reactive to light. Intact eye movements. No JVD. No cervical lym phadenopathy. Neck is supple. Thyroid is not enlarged. Lungs: Clear to auscultation bilaterally. No rhonchi, wheezing, or crackles. No accessory muscle u se. Heart: Regular rate and rhythm. No extra sounds. Abdomen: Soft, nontender. Bowel sounds positive. No organomegaly. No masses or hernia. No rigidi ty or rebound. Extremities: No edema, clubbing, or cyanosis. Intact pulses. Skin: No rash. Neurologic: Alert, awake, oriented x3. No acute focal deficits appreciated. Lymph Nodes: No cervical or axillary lymphadenopathy. Investigations: Labs were reviewed. Assessment And Recommendations: 1.Atrial fibrillation, controlled. Continue current management. 2.Hypertension. Blood pressure is on the low side. Therefore, with diuresis, I see another order f or Lasix. I would definitely be extremely cautious that she does not look fluid overloaded clinicall y. 3.Elevated troponin. This is likely demand ischemia. She will need a stress test once her respirat ory status is more stable. 4.Chronic obstructive pulmonary disease exacerbation with resultant hypoxic respiratory failure. This is stabilized now. Continue current management. SR/MODL Voice ID: [id number] Report ID: [id number]
[2023-06-27] MEDS: FAMOTIDINE 20 MG TAB PO SCH (21:48)
[2023-06-27] MEDS: ROPINIROLE HCL 1 MG TAB PO SCH (21:52)
[2023-06-28] MEDS: HYDROCODONE/APAP 5/325 MG TAB PO PRN ×2 (00:18→12:12)
[2023-06-28] MEDS: IPRATROPIUM BROM 0.5MG/2.5ML NEB SCH ×4 (01:45→20:00)
[2023-06-28] MEDS: LEVALBUTEROL 1.25 MG/3 ML NEB NEB SCH ×4 (01:45→20:00)
[2023-06-28] MEDS: LEVOTHYROXINE SOD 0.112 MG TAB PO SCH (05:13)
[2023-06-28 06:43] LABS: Magnesium 2.3 mg/dL (1.6-2.4); Phosphorus 3.1 mg/dL (2.5-4.9); Potassium 4.3 mEq/L (3.5-5.1)
[2023-06-28] MEDS: PANTOPRAZOLE 40MG TABLET PO SCH ×2 (09:03→21:57)
[2023-06-28] MEDS: AMIODARONE HCL 200 MG TAB PO SCH ×2 (09:04→21:56)
[2023-06-28] MEDS: carvediloL 25 MG TAB PO SCH ×2 (09:04→16:54)
[2023-06-28] MEDS: ESCITALOPRAM 20 MG TAB PO SCH ×2 (09:04→21:56)
[2023-06-28] MEDS: APIXABAN 2.5 MG TABLET PO SCH ×2 (09:04→21:57)
[2023-06-28] MEDS: FUROSEMIDE 40 MG/4 ML VIAL IV SCH ×2 (09:05→16:55)
[2023-06-28] MEDS: ATORVASTATIN 10 MG TAB PO SCH (09:05)
[2023-06-28] MEDS: CEFDINIR 300 MG CAP PO SCH ×2 (09:09→22:32)
[2023-06-28 09:44] VITALS: O2SAT 99
--- NOTE | 2023-06-28 16:10 | P.DS ---
Admission Date: 06/21/23 Discharge Date: 06/28/23 Primary Care Provider: Johnathan Disposition: TRANSFER TO JAIL Discharge Condition: GOOD Reason for Admission: Afib RVR, CHF Consultations: 1. Cardiology 2. Nephrology Hospital Course: DIAGNOSES: # Deconditioning complicated by Recurrent Mechanical Falls # Paroxysmal Atrial Fibrillation with Rapid Ventricular Response - improved # Acute on Chronic Decompensated Systolic Congestive Heart Failure with Reduced Ejection Fraction - improved # Suspect Demand Ischemia (Type II Non-ST Segment Elevation Myocardial Infarction) due to above # KDIGO Stage I Acute Kidney Injury on Chronic Kidney Disease Stage IV # Moderate Pulmonary Hypertension # Hypertension # Anemia of Chronic Kidney Disease # Chronic Respiratory Failure due to Chronic Obstructive Pulmonary Disease on Home Oxygen (4 L) # Dyslipidemia # Hypothyroidism # Depression # Restless Leg Syndrome HOSPITAL COURSE: Ms. Radha Bentley is a pleasant 82 year old female with a past medical history significant for paroxysmal atrial fibrillation, chronic systolic congestive hear failure, moderate pulmonary hypertension, hypertension, chronic kidney disease stage IV, chronic respiratory failure due to COPD (4 L), hypothyroidism, dyslipidemia, depression, and restless leg syndrome who was admitted to the [facility] on 06/19/2023 for recurrent mechanical falls. She was admitted to the Medicine service. Upon further evaluation, she was found to be in atrial fibrillation with rapid ventricular response as well as having an acute systolic congestive heart failure exacerbation. Cardiology was consulted and she was evaluated by Dr. Arriaga. She was started on diuretics and an amiodarone drip. Over the course of her hospitalization, her symptoms improved significantly. During her evaluation, she was found to have an elevated troponin, which was felt to represent demand ischemia. Dr. Arriaga has cleared her for discharge with outpatient follow-up. Nephrology was consulted for her acute kidney injury, which has improved. She was evaluated by Dr. Chiquita Suarez, who has cleared her for discharge with outpatient follow-up. In regards to her deconditioning and recurrent falls, physical therapy was consulted. It was felt that she would benefit from continued therapy services at discharge. With the assistance of case management, she was accepted to [facility]. On 06/28/2023, she was seen on rounds and deemed medically stable for discharge. She was discharged with instructions to schedule follow-up appointments with her PCP (Dr. Mann), with Cardiology (Dr. Arriaga), and with Nephrology (Dr. Bethea). She was given the opportunity to ask questions and reported no further questions. Furthermore, all questions were answered to the best of my ability. A copy of this discharge summary will be sent to the above providers to facilitate continuity of care. Today, I personally spent 25 minutes on her case, of which greater than 50% of the time was spent in patient education, counseling, and coordination of care as described above. - Physical Exam General: Alert, In no apparent distress, Oriented x3 HEENT: Atraumatic, Mucous membr. moist/pink, Sclerae nonicteric Neck: JVD not distended Respiratory: Clear to auscultation bilaterally, Diminished Cardiovascular: No edema, Regular rate/rhythm, No murmurs Gastrointestinal: Normal bowel sounds, Soft, Non-distended, No tenderness Integumentary: No rashes Neurological: Normal speech, Normal affect Vital Signs/Physical Exam: Temp Pulse Resp BP Pulse Ox 98.2 F 62 16 141/65 H 96 06/28/23 11:41 06/28/23 11:41 06/28/23 11:41 06/28/23 11:41 06/28/23 11:41 Laboratory Data at Discharge: WBC 9.00 thou/uL (4.3-10.9) 06/25/23 04:39 Hgb 9.2 g/dL (12.0-15.0) L 06/25/23 04:39 Hct 27.5 % (36.0-45.0) L 06/25/23 04:39 Plt Count 196 thou/uL (152-406) 06/25/23 04:39 PT 12.3 SECONDS (9.5-12.5) 06/19/23 17:20 INR 1.12 06/19/23 17:20 APTT 25.7 SECONDS (24.3-36.9) 06/19/23 17:20 Sodium 135 mEq/L (136-145) L 06/28/23 05:30 Potassium 4.3 mEq/L (3.5-5.1) 06/28/23 05:30 BUN 32 mg/dL (7-18) H 06/28/23 05:30 Creatinine 2.08 mg/dL (0.55-1.02) H 06/28/23 05:30 Glucose 137 mg/dL (74-106) H 06/28/23 05:30 Phosphorus 3.1 mg/dL (2.5-4.9) 06/28/23 05:30 Magnesium 2.3 mg/dL (1.6-2.4) 06/28/23 05:30 Total Bilirubin 0.5 mg/dL (0.2-1.0) 06/24/23 06:33 AST 10 U/L (15-37) L 06/24/23 06:33 ALT 14 U/L (13-56) 06/24/23 06:33 Alkaline Phosphatase 83 U/L (45-117) 06/24/23 06:33 Home Medications: Escitalopram Oxalate [Lexapro] 20 mg PO BID 11/19/11 Levothyroxine [Synthroid*] 0.125 mg PO DAILY 11/19/11 Pantoprazole [Protonix Tab*] 1 tab PO BID 06/28/21 Famotidine 20 mg PO BEDTIME 09/21/22 Lovastatin 20 mg PO DAILY 04/13/23 Amlodipine [Norvasc*] 5 mg PO DAILY 06/21/23 Clonidine HCl [Catapres*] 0.2 mg PO BID 06/21/23 Donepezil [Aricept*] 10 mg PO BEDTIME 06/21/23 Ergocalciferol (Vitamin D2) [Vitamin D2] 1,250 mcg PO EVERY 7TH DAY 06/21/23 Febuxostat [Uloric] 40 mg PO DAILY 06/21/23 Primidone 50 mg PO DAILY 06/21/23 buPROPion HCL [Bupropion HCl Sr] 150 mg PO BID 06/21/23 carvediloL [Carvedilol] 6.25 mg PO BID 06/21/23 oxyBUTYnin chloride [Oxybutynin Chloride] 5 mg PO TID 06/21/23 Amiodarone HCl [Cordarone*] 200 mg PO BID tab 06/28/23 Apixaban [Eliquis *] 2.5 mg PO BID 06/28/23 Cefdinir [Cefdinir*] 300 mg PO BID cap 06/28/23 Furosemide [Lasix*] 40 mg PO BIDL #1 06/28/23 New Medications: Furosemide [Lasix*] 40 mg PO BIDL #1 Physician Discharge Instructions: 1. Please call and schedule a follow-up appointment with your PCP (Dr. Mann) in 3-5 days - Your blood work showed anemia. Please discuss with your PCP for further evaluation. - There was a small amount of blood in your urine. Please discuss with your PCP for further evaluation 2. Please call and schedule a follow-up appointment with Nephrology (Dr. Bethea) in 3-5 days - Please have him repeat your kidney blood work at your upcoming visit 3. Please call and schedule a follow-up appointment with Cardiology (Dr. Arriaga) in 5-7 days - Please follow-up with your PCP for medication refills/adjustments Diet: Renal Activity: Fall precautions Followup: Villa Mann MD [Primary Care Provider] - Andre Arriaga MD [ACTIVE - CAN ADMIT] - Inderjit Bethea MD [ACTIVE - CAN ADMIT] - Time spent managing pt's care (in minutes): 25
--- NOTE | 2023-06-28 19:44 | PN ---
Date of Progress Note: 06/28/2023 Subjective: Seen by bedside. Doing clinically better. Mild wheezing. No significant shortness of breath or chest pain. No edema. Review of Systems: Mild shortness of breath and wheezing. No edema of lower extremities. No orthopnea. No chest pain. No nausea, vomiting, or diarrhea. All other systems were reviewed, they were negative. Objective: Vital Signs: Reviewed. Head and Neck: Pupils are equal, reactive to light. Intact eye movements. No JVD. No cervical lym phadenopathy. Neck is supple. Thyroid is not enlarged. Lungs: Clear to auscultation bilaterally. No rhonchi, wheezing, or crackles. Heart: Regular rate and rhythm. No extra sounds. Abdomen: Soft, nontender. Bowel sounds positive. No organomegaly. No masses or hernia. No rigidi ty or rebound. Extremities: No edema, clubbing, or cyanosis. Intact pulses. Skin: No rash. No nodule. Neurologic: Alert, awake, oriented x3. No acute focal deficits appreciated. Investigations: BUN is 32, creatinine is 2, and hemoglobin is 9.2. Assessment And Recommendations: 1.Atrial fibrillation. She is in sinus. Continue current management, which includes amiodarone, an d if she is a candidate to get 2.5 Eliquis twice a day. 2.Elevated troponin. This is demand ischemia. She has no chest pain. Outpatient stress test is re commended. 3.Chronic obstructive pulmonary disease exacerbation with resultant hypoxic respiratory failure and this is improved significantly. Cardiology will sign off and patient can be followed up as an outpatient. SR/MODL Voice ID: [id number] Report ID: [id number]
[2023-06-28 21:17] VITALS: BP 114/57; TEMP 97.3
[2023-06-28] MEDS: FAMOTIDINE 20 MG TAB PO SCH (21:57)
--- NOTE | 2023-06-29 00:51 | PN ---
Date of Progress Note: 06/28/2023 Chief Complaint: Chronic kidney disease, prerenal azotemia. Subjective: The patient was admitted for atrial fibrillation with rapid ventricular response. She h as congestive heart failure. Serum creatinine level has been the patient has nonoliguric urine output. Review of Systems: Denies complaints. Previously, she was complaining of leg pain and right hip. Physical Examination: Vital Signs: Blood pressure 113/53, heart rate 53, respiratory rate 17, SpO2 of 95%. General: The patient is not in acute distress. Neck: Supple. No JVD. Lungs: Clear to auscultation bilaterally. Heart: S1, S2. Abdomen: Soft. Extremities: Slight edema. Impression And Plan: 1.Atrial fibrillation with rapid ventricular response. The patient is on carvedilol, amiodarone, an d apixaban. Cardiology was consulted. 2.Chronic kidney disease stage 4. The patient has anemia due to chronic kidney disease. Monitor he moglobin level. The patient may need transfusion according to lab results. Avoid nephrotoxic medica tion. Continue adequate hydration. 3.The patient has hypertension, hypertensive heart and kidney disease. Transthoracic echocardiogram showed mildly depressed left ventricular ejection fraction and apical hypokinesis as well as left at rial enlargement and mild tricuspid regurgitation. The patient will continue low-sodium diet and mon itor strict I's and O's. 4.Tad-TC-belhoeeyc myocardial infarction. Cardiology was consulted. She did not have ST elevation myocardial infarction criteria by EKG. Troponin was elevated. The patient had acute on chronic kidn ey injury secondary to cardiorenal syndrome in setting of acute myocardial infarction. Continue diur etic as needed to control volemia and avoid nonsteroidal antiinflammatory medication. Lab work today show a creatinine level of 2.08, which has improved slightly from 2.31. There is ongoing mild hypon atremia. Sodium level was 131 and improved to 135 and up to 137. Continue low-sodium diet for manag ement of congestive heart failure and cardiorenal syndrome in this particular patient. EB/MODL Voice ID: [id number] Report ID: [id number]
== END 2023-06-28 22:43 | DRG 280 ==
LOC: ER 16:45 → ERHOLD 20:39 → 2ND 20:58 → 3RD-ICU 06-21 13:21 → OBSVTOIN 06-21 13:35 → 4TH 06-25 23:12
PROVIDERS: ADMIT Family Medicine; ATTEND Internal Medicine
PROC: 5A09357 Assistance with Respiratory Ventilation, Less than 24 Consecutive Hours, Continuous Positive Airway Pressure (ICD-10-PCS; principal; 2023-06-21)
DX: I48.0 Paroxysmal atrial fibrillation (principal); I50.23 Acute on chronic systolic (congestive) heart failure; I21.A1 Myocardial infarction type 2; J96.01 Acute respiratory failure with hypoxia; I13.0 Hypertensive heart and chronic kidney disease with heart failure and stage 1 through stage 4 chronic kidney disease, or unspecified chronic kidney disease; N18.4 Chronic kidney disease, stage 4 (severe); N17.9 Acute kidney failure, unspecified; E87.1 Hypo-osmolality and hyponatremia; D63.1 Anemia in chronic kidney disease; J43.9 Emphysema, unspecified; I07.1 Rheumatic tricuspid insufficiency; F32.A Depression, unspecified; E78.5 Hyperlipidemia, unspecified; I27.20 Pulmonary hypertension, unspecified; F90.9 Attention-deficit hyperactivity disorder, unspecified type; E03.9 Hypothyroidism, unspecified; G25.81 Restless legs syndrome; R77.8 Other specified abnormalities of plasma proteins; R29.6 Repeated falls; Z88.8 Allergy status to other drugs, medicaments and biological substances; Z88.1 Allergy status to other antibiotic agents; Z91.81 History of falling; Z99.81 Dependence on supplemental oxygen; Z90.49 Acquired absence of other specified parts of digestive tract; Z96.619 Presence of unspecified artificial shoulder joint; Z91.048 Other nonmedicinal substance allergy status; Z96.653 Presence of artificial knee joint, bilateral; Z79.899 Other long term (current) drug therapy
CPT/HCPCS: 36415; 51702; 70450; 70551; 71045; 72125; 80048; 80053; 80076; 81001; 82947; 83735; 83880; 84100; 84484; 85025; 85610; 85730; 93005; 93306; 94640; 94660; 94760; 97116; 97161; 97530; 99285; G0378; J0282; J1940; J7060; J7614; J7644; P9047

== ENCOUNTER 2023-07-26 17:13 | Inpatient (IN) | payer MEDICARE ==
--- OUTSIDE RECORDS SUMMARY | 2023-07-26 17:57 | XMS REPORT | Continuity of Care Document ---
:1940 Author Organization [facility] t Address [address] [place] [address] Care Team Providers Name Role Phone [place] Primary Care Physician Anurag Sandersno Attending Clinician Unavailable MELONY FALK Attending Clinician Unavailable [email or web address]_S Attending Clinician Unavailable Glenys Claros Attending Clinician Todd Attending Clinician Unavailable Alisa Sanders Attending Clinician EMMANUEL TREJO Attending Clinician Unavailable PEREZ MORENO Attending Clinician Unavailable Doctor Unassigned, [place] Attending Clinician Unavailable Allegra Laura Attending Clinician CARLY SINCLAIR Attending Clinician Unavailable Carly Sinclair DO Attending Clinician Canales_M Attending Clinician Unavailable Olivia-Mbayo_A_AH Attending Clinician Unavailable Caitlyn Jerez Attending Clinician [phone] Sariah Becerra Attending Clinician Yocasta CLAY, Maria Luisa Mosley Attending Clinician Timi Aguirre MD Attending Clinician TIMI AGUIRRE Attending Clinician Unavailable Physician, No Primary or Family Admitting Clinician UnavailKHUSHBU Tang Admitting Clinician Unavailable GC_GCBZW_Kadiyala_S Admitting Clinician Unavailable Marilyn_Maria G Admitting Clinician Unavailable ROGER CASTAÑEDA Admitting Clinician Unavailable PEREZ MORENO Admitting Clinician Unavailable CARLY SINCLAIR Admitting Clinician Unavailable Canales_M Admitting Clinician Unavailable Olivia-Mbayo_A_AH Admitting Clinician Unavailable TIMI AGUIRRE Admitting Clinician Unavailable Payers Payer Name Policy Type Policy Number Effective Date Expiration Date S kristen [employer] [facility] [id number] 2020 00:00:00 [employer] [place] [id number] 2019 CLASSIC/VALUE 00:00:00 [employer] [id number] (MEDICARE 00:00:00 REPLACEMENT HMO) [place] OF [place] - [id number] 2019 [place] (MEDICARE 00:00:00 REPLACEMENT/ADVANTA GE - HMO) Problems Condition Condition Condition Status Onset Resolution Last Treating Co mments Source Name Details Category Date Date Treatment Clinician Date SUBARACHMO SUBARACHM Diagnosis Active 2022-12-11 Memoria ID OID 11-25 21:45:00 l HEMORRHAGE HEMORRHAGE 23:05: He rmann Active 00 11/25/2022 [facility] Acute Acute Diagnosis Active 2022-11-25 moria 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-22 03:23: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 00 (disorder) (disorder) Active 11/22/2022 Diagnosis 11/25/2022 [facility] SUBARACHNO Diagnosis Active 2022-11-23 Memoria ID SUBARACHNO 11-20 15:38:00 l HEMORRHAGE ID 00:00: Ajay n HEMORRHAGE 00 Active 11/20/2022 [facility] FALL FROM FALL FROM Diagnosis Active 2019-102020-09-16 Memoria STANDING STANDING 11-05 21:55:00 l Active 00:00: Secor 09/04/2020 00 [facility] S/P FALL, S/P FALL, Diagnosis Active 2019-102020-09-05 Memoria FRACTURED FRACTURED 2 00:45:00 l RIGHT RIGHT 00:00: Raul WRIST, WRIST, 00 HEAD HE HEAD HE Active 09/04/2020 [facility] [id number] 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 [facility] [id number] Arthritis Problem Com mon of hand Spirit - [facility] Traumatic Traumatic Problem 2022-12-04 Memoria subdural subdural 08:08:28 l hemorrhage hemorrhage He rmann with loss with loss of of consciousn consciousn ess status ess status unknown, unknown, initial initial encounter encounter 12/04/2022 [facility] Intracrani Intracran Diagnosis 2022-12-02 Memoria al injury ial injury 04:21:54 l with loss with loss Herm bernie of of consciousn consciousn ess ess (disorder) (disorder) Diagnosis 12/02/2022 [facility] 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 Francisco zhang stenosis stenosis 08:08:28 l in in Secor cervical cervical region region (disorder) (disorder) Active Problem 12/04/2022 [facility] TRAUM TRAUM Diagnosis Active 2022-12-11 Mem oria SUBDR HEM SUBDR HEM 21:45:00 l WITH LOC WITH LOC Ajay n STATUS STATUS UNKNOWN, UNKNOWN, Active [facility] Hypertensi Hypertens Problem Active 2022-12-04 Memoria ve lyle 08:08:28 l disorder, disorder, Herm bernie systemic systemic arterial arterial (disorder) (disorder) Active Problem 12/04/2022 [facility] Hyperlipid Hyperlipi Problem Active 2022-12-04 Memoria emia demia 08:08:28 l (disorder) (disorder) He rmann Active Problem 12/04/2022 [facility] Hypothyroi Hypothyro Problem Active 2022-12-04 Memoria dism idism 08:08:28 l (disorder) (disorder) He rmann Active Problem 12/04/2022 [facility] Memory Memory Problem Active 2022-12-04 Jose Francisco zhang impairment impairment 08:08:28 l (finding) (finding) Herm bernie Active Problem 12/04/2022 [facility] Morbid Morbid Problem Active 2022-12-04 Jose Francisco zhang obesity obesity 08:08:28 l (disorder) (disorder) He rmann Active Problem 12/04/2022 [facility] Recurrent Recurrent Problem Active 2022-12-04 Memoria falls falls 08:08:28 l (finding) (finding) Herm bernie Active Problem 12/04/2022 [facility] Transient Transient Problem Active 2022-12-04 Memoria ischemic ischemic 08:08:28 l attack attack Secor (disorder) (disorder) Active Problem 12/04/2022 [facility] Tremor Tremor Problem Active 2022-12-04 Jose Francisco zhang (finding) (finding) 08:08:28 l Active Secor Problem 12/04/2022 [facility] 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-04 Keesha emoria kidney kidney 08:08:28 l disease disease Secor (disorder) (disorder) Active Problem 12/04/2022 [facility] 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-04 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:08:28 l e lung e lung Secor disease disease (disorder) (disorder) Active Problem 12/04/2022 [facility] 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 08:08:28 l (disorder) (disorder) He rmann Active Problem 12/04/2022 [facility] Essential Essential Problem Active 2022-12-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 tremor tremor 08:08:28 l (disorder) (disorder) He rmann Active Problem 12/04/2022 [facility] UNSPECIFIE UNSPECIFI Diagnosis Active 2020-09-16 Memoria D FALL, ED FALL, 21:55:00 l INITIAL INITIAL Secor ENCOUNTER ENCOUNTER Active [facility] History of Past Illness Condition Condition Condition Status Onset Resolution Last Treating Co mments Source Name Details Category Date Date Treatment Clinician Date Spinal Spinal Problem 2022-12-04 2022-12-04 Memoria stenosis, stenosis, 3 08:08:28 08:08:28 l cervical cervical 16:54: Ajay n region region 00 11/29/2022 12/04/2022 [facility] Repeated Repeated Problem 2022-12-04 2022-12-04 Memoria falls falls 11-29 08:08:28 08:08:28 l 11/29/2022 16:45: Ajay n 12/04/2022 00 [facility] Chronic Chronic Problem 2022-11-27 2022-11-27 Memoria kidney kidney 11-22 10:42:07 10:42:07 l disease, disease, 19:17: Ajay gorman unspecifie unspecifie 00 d d 11/22/2022 11/27/2022 [facility] Allergies, Adverse Reactions, Alerts Allergy Allergy Status Severity Reaction(s) Onset Inactive Treating Comm ents Source Name Type Date Date Clinician ADHESIVE DRUG Active Med Rash Univers TAPE-DEBBY 8-30 ity of ICONES 00:00: [place] 00 [facility] MOXIFLOX DRUG Active Med Rash Univers ACIN HCL INGREDI 8-30 ity of 00:00: [place] [address] Medical Branch Adhesive Propensi Active Rash Univer s Tape-Debby ty to 8-30 ity of icones adverse 00:00: [place] reaction 00 Medical s to Branch drug Moxiflox Propensi Active Rash Univer s acin Hcl ty to 8-30 ity of adverse 00:00: [place] reaction 00 Medical s to Branch drug moxiflox DA Active U [facility] acin HCl 2-15 West 00:00: [address] BANDAIDS DA Active AL [facility] ADHESIVE 2-15 West 00:00: [address] Avelox Avelox Active AL^Mild Memoria l Raul Avelox Allergy Active Rash Devoted to Medical substanc Group e Social History Social Habit Start Date Stop Date Quantity Comments Source ASSERTION [facility] Alcohol Comment Occasional [facility] History of Common Spirit - Tobacco Use [facility] Sex Assigned At Common Sp cristian - [facility] Alcohol intake 2022-08-10 2022-08-10 0 /d University 00:00:00 00:00:[address] [facility] Exposure to 2022-07-26 2022-08-05 Not sure [facility]-CoV-2 00:00:00 12:21:00 [facility] (event) [place] Social History 2020-09-05 2020-09-05 Nancy najera 14:31:45 14:31:45 Tobacco use and 2020-06-28 2020-06-28 Never used Universit y of exposure 00:00:00 00:00:[address] [facility] Smoking Status Start Date Stop Date Source Former Smoker 2023-04-30 00:00:00 2023-04-30 00:00:00 Common S pirit - [facility] Ce nter Never smoked tobacco [facility] Medications Ordered Filled Start Stop Current Ordering Indication Dosage Frequency Signature Comments Components Source Medication Medication Date Date Medication? Clinician (SIG) Name Name valproic Yes 500 mg = 2 Mem oria acid 250 mg 3-01 cap, PO, l oral 16:43: Q8H, # 30 Raul capsule(Dep 00 cap, 0 ekene) Refill(s), Pharmacy: [id number], 149.86, cm, 11/27/22 8:13:00 SUPERVISOR TYPE DISK QUALITY CONTROL, Height, 86.364, kg, 11/27/22 8:13:00 SUPERVISOR TYPE DISK QUALITY CONTROL, Weight Tylenol 2022-0 No 1 tab, PO, Jose Francisco zhang with 3-01 Q6H, PRN l Codeine #3 16:43: Pain Score H ermann oral tablet 00 7-10, X 3 day, # 12 tab, 0 Refill(s), Pharmacy: [id number], 149.86, cm, 11/27/22 8:13:00 SUPERVISOR TYPE DISK QUALITY CONTROL, Height, 86.364, kg, 11/27/22 8:13:00 SUPERVISOR TYPE DISK QUALITY CONTROL, Weight valproic Yes 500 mg = 2 Mem oria acid 250 mg 3-01 cap, PO, l oral 16:43: Q8H, # 30 Raul capsule(Dep 00 cap, 0 ekene) Refill(s), Pharmacy: [id number], 149.86, cm, 11/27/22 8:13:00 SUPERVISOR TYPE DISK QUALITY CONTROL, Height, 86.364, kg, 11/27/22 8:13:00 SUPERVISOR TYPE DISK QUALITY CONTROL, Weight Tylenol 2022-0 No 1 tab, PO, Jose Francisco zhang with 3-01 Q6H, PRN l Codeine #3 16:43: Pain Score H ermann oral tablet 00 7-10, X 3 day, # 12 tab, 0 Refill(s), Pharmacy: [facility] #[id number], 149.86, cm, 11/27/22 8:13:00 SUPERVISOR TYPE DISK QUALITY CONTROL, Height, 86.364, kg, 11/27/22 8:13:00 SUPERVISOR TYPE DISK QUALITY CONTROL, Weight valproic Yes 500 mg = 2 Mem oria acid 250 mg 3-01 cap, PO, l oral 16:43: Q8H, # 30 Secor capsule(Dep 00 cap, 0 ekene) Refill(s), [facility]acy: [id number], 149.86, cm, 11/27/22 8:13:00 SUPERVISOR TYPE DISK QUALITY CONTROL, Height, 86.364, kg, 11/27/22 8:13:00 SUPERVISOR TYPE DISK QUALITY CONTROL, Weight Tylenol 2022-0 No 1 tab, PO, Jose Francisco zhang with 3-01 Q6H, PRN l Codeine #3 16:43: Pain Score H ermann oral tablet 00 7-10, X 3 day, # 12 tab, 0 Refill(s), Pharmacy: [id number], 149.86, cm, 11/27/22 8:13:00 SUPERVISOR TYPE DISK QUALITY CONTROL, Height, 86.364, kg, 11/27/22 8:13:00 SUPERVISOR TYPE DISK QUALITY CONTROL, Weight valproic 2022-0 Yes 500 mg = 2 Mem oria acid 250 mg 3-01 cap, PO, l oral 16:43: Q8H, # 30 Raul capsule(Dep 00 cap, 0 ekene) Refill(s), Pharmacy: [id number], 149.86, cm, 11/27/22 8:13:00 SUPERVISOR TYPE DISK QUALITY CONTROL, Height, 86.364, kg, 11/27/22 8:13:00 SUPERVISOR TYPE DISK QUALITY CONTROL, Weight Tylenol 2022-0 No 1 tab, PO, Jose Francisco zhang with 3-01 Q6H, PRN l Codeine #3 16:43: Pain Score H ermann oral tablet 00 7-10, X 3 day, # 12 tab, 0 Refill(s), Pharmacy: [id number], 149.86, cm, 11/27/22 8:13:00 SUPERVISOR TYPE DISK QUALITY CONTROL, Height, 86.364, kg, 11/27/22 8:13:00 SUPERVISOR TYPE DISK QUALITY CONTROL, Weight valproic 2022-0 Yes 500 mg = 2 Mem oria acid 250 mg 3-01 cap, PO, l oral 16:43: Q8H, # 30 Secor capsule(Dep 00 cap, 0 ekene) Refill(s), Pharmacy: [id number], 149.86, cm, 11/27/22 8:13:00 SUPERVISOR TYPE DISK QUALITY CONTROL, Height, 86.364, kg, 11/27/22 8:13:00 SUPERVISOR TYPE DISK QUALITY CONTROL, Weight Tylenol 2022-0 No 1 tab, PO, Jose Francisco zhang with 3-01 Q6H, PRN l Codeine #3 16:43: Pain Score H ermann oral tablet 00 7-10, X 3 day, # 12 tab, 0 Refill(s), Pharmacy: [id number], 149.86, cm, 11/27/22 8:13:00 SUPERVISOR TYPE DISK QUALITY CONTROL, Height, 86.364, kg, 11/27/22 8:13:00 SUPERVISOR TYPE DISK QUALITY CONTROL, Weight valproic 2022-0 Yes 500 mg = 2 Mem oria acid 250 mg 3-01 cap, PO, l oral 16:43: Q8H, # 30 Secor capsule(Dep 00 cap, 0 ekene) Refill(s), Pharmacy: [id number], 149.86, cm, 11/27/22 8:13:00 SUPERVISOR TYPE DISK QUALITY CONTROL, Height, 86.364, kg, 11/27/22 8:13:00 SUPERVISOR TYPE DISK QUALITY CONTROL, Weight Tylenol 2022-0 No 1 tab, PO, Jose Francisco zhang with 3-01 Q6H, PRN l Codeine #3 16:43: Pain Score H ermann oral tablet 00 7-10, X 3 day, # 12 tab, 0 Refill(s), Pharmacy: [id number], 149.86, cm, 11/27/22 8:13:00 SUPERVISOR TYPE DISK QUALITY CONTROL, Height, 86.364, kg, 11/27/22 8:13:00 SUPERVISOR TYPE DISK QUALITY CONTROL, Weight valproic 2022-0 Yes 500 mg = 2 Mem oria acid 250 mg 3-01 cap, PO, l oral 16:43: Q8H, # 30 Raul capsule(Dep 00 cap, 0 ekene) Refill(s), Pharmacy: [id number], 149.86, cm, 11/27/22 8:13:00 SUPERVISOR TYPE DISK QUALITY CONTROL, Height, 86.364, kg, 11/27/22 8:13:00 SUPERVISOR TYPE DISK QUALITY CONTROL, Weight Tylenol 2022-0 No 1 tab, PO, Jose Francisco zhang with 3-01 Q6H, PRN l Codeine #3 16:43: Pain Score H ermann oral tablet 00 7-10, X 3 day, # 12 tab, 0 Refill(s), Pharmacy: [id number], 149.86, cm, 11/27/22 8:13:00 SUPERVISOR TYPE DISK QUALITY CONTROL, Height, 86.364, kg, 11/27/22 8:13:00 SUPERVISOR TYPE DISK QUALITY CONTROL, Weight valproic 2022-0 Yes 500 mg = 2 Mem oria acid 250 mg 3-01 cap, PO, l oral 16:43: Q8H, # 30 Secor capsule(Dep 00 cap, 0 ekene) Refill(s), Pharmacy: [id number], 149.86, cm, 11/27/22 8:13:00 SUPERVISOR TYPE DISK QUALITY CONTROL, Height, 86.364, kg, 11/27/22 8:13:00 SUPERVISOR TYPE DISK QUALITY CONTROL, Weight Tylenol 2022-0 No 1 tab, PO, Jose Francisco zhang with 3-01 Q6H, PRN l Codeine #3 16:43: Pain Score H ermann oral tablet 00 7-10, X 3 day, # 12 tab, 0 Refill(s), Pharmacy: [id number], 149.86, cm, 11/27/22 8:13:00 SUPERVISOR TYPE DISK QUALITY CONTROL, Height, 86.364, kg, 11/27/22 8:13:00 SUPERVISOR TYPE DISK QUALITY CONTROL, Weight valproic 2022-0 Yes 500 mg = 2 Mem oria acid 250 mg 3-01 cap, PO, l oral 16:43: Q8H, # 30 Raul capsule(Dep 00 cap, 0 ekene) Refill(s), Pharmacy: [id number], 149.86, cm, 11/27/22 8:13:00 SUPERVISOR TYPE DISK QUALITY CONTROL, Height, 86.364, kg, 11/27/22 8:13:00 SUPERVISOR TYPE DISK QUALITY CONTROL, Weight Tylenol 2022-0 No 1 tab, PO, Jose Francisco zhang with 3-01 Q6H, PRN l Codeine #3 16:43: Pain Score H ermann oral tablet 00 7-10, X 3 day, # 12 tab, 0 Refill(s), Pharmacy: [id number], 149.86, cm, 11/27/22 8:13:00 SUPERVISOR TYPE DISK QUALITY CONTROL, Height, 86.364, kg, 11/27/22 8:13:00 SUPERVISOR TYPE DISK QUALITY CONTROL, Weight rOPINIRole 2022-0 Yes 2 mg = 1 Mem oria 2 mg oral 3-01 tab, PO, l tablet 16:42: Q12H, 0 Raul 00 Refill(s) acetaminoph 2023-0 Yes 100.4 F, M emoria en 325 mg 3-01 0 l oral 16:42: Refill(s) Secor tablet. 00 rOPINIRole 2023-0 Yes 2 mg [...] tab, PO, l tablet 16:42: Q12H, 0 Secor 00 Refill(s) acetaminoph 2023-0 Yes 100.4 F, M emoria en 325 mg 3-01 0 l oral 16:42: Refill(s) Raul tablet. 00 rOPINIRole 2023-0 Yes 2 mg = 1 Mem oria 2 mg oral 3-01 tab, PO, l tablet 16:42: Q12H, 0 Secor 00 Refill(s) acetaminoph 2023-0 Yes 100.4 F, [...] tab, PO, l tablet 16:42: Q12H, 0 Secor 00 Refill(s) acetaminoph 2023-0 Yes 100.4 F, [...] tab, PO, l tablet 16:42: Q12H, 0 Secor 00 Refill(s) acetaminoph 2023-0 Yes 100.4 F, [...] oral 16:42: Refill(s) Raul tablet. 00 donepezil 2023-0 No 10 mg, 2 Jose Francisco zhang 2-28 tab, l 15:00: Route: PO, Secor 00 Drug form: TAB, Daily, Dosing Weight 86.364, kg, Start date: 11/28/22 9:00:00 SUPERVISOR TYPE DISK QUALITY CONTROL, Duration: 30 day, Stop date: 12/27/22 9:00:00 CDT, 0 ferrous 3-0 No Notes: Memoria sulfate 2-28 Give with l 15:00: food. "Do Not Crush" NIFEdipine 3-0 No 30 mg, 1 Mem oria 30 mg oral 2-28 tab, l tablet, 15:00: Route: PO, Herm bernie extended Drug form: release ERTAB, Daily, Dosing Weight 86.364, kg, Start date: 11/28/22 9:00:00 SUPERVISOR TYPE DISK QUALITY CONTROL, Duration: 30 day, Stop date: 12/27/22 9:00:00 CDT, 0 donepezil 2023-0 No 10 mg, 2 Jose Francisco zhang 2-28 tab, l 15:00: Route: PO, Raul 00 Drug form: TAB, Daily, Dosing Weight 86.364, kg, Start date: 11/28/22 9:00:00 SUPERVISOR TYPE DISK QUALITY CONTROL, Duration: 30 day, Stop date: 12/27/22 9:00:00 CDT, 0 ferrous 2023-0 No Notes: Memoria sulfate 2-28 Give with l 15:00: food. "Do Not Crush" NIFEdipine 2023-0 No 30 mg, 1 Mem oria 30 mg oral 2-28 tab, l tablet, 15:00: Route: PO, Herm bernie extended 00 Drug form: release ERTAB, Daily, Dosing Weight 86.364, kg, Start date: 11/28/22 9:00:00 SUPERVISOR TYPE DISK QUALITY CONTROL, Duration: 30 day, Stop date: 12/27/22 9:00:00 CDT, 0 donepezil 2023-0 No 10 mg, 2 Jose Francisco zhang 2-28 tab, l 15:00: Route: PO, Secor Drug form: TAB, Daily, Dosing Weight 86.364, kg, Start date: 11/28/22 9:00:00 SUPERVISOR TYPE DISK QUALITY CONTROL, Duration: 30 day, Stop date: 12/27/22 9:00:00 CDT, 0 ferrous 2023-0 No Notes: Memoria sulfate 2-28 Give with l 15:00: food. "Do Not Crush" NIFEdipine 2023-0 No 30 mg, 1 Mem oria 30 mg oral 2-28 tab, l tablet, 15:00: Route: PO, Herm bernie extended Drug form: release ERTAB, Daily, Dosing Weight 86.364, kg, Start date: 11/28/22 9:00:00 SUPERVISOR TYPE DISK QUALITY CONTROL, Duration: 30 day, Stop date: 12/27/22 9:00:00 CDT, 0 donepezil 2023-0 No 10 mg, 2 Jose Francisco zhang 2-28 tab, l 15:00: Route: PO, Raul 00 Drug form: TAB, Daily, Dosing Weight 86.364, kg, Start date: 11/28/22 9:00:00 SUPERVISOR TYPE DISK QUALITY CONTROL, Duration: 30 day, Stop date: 12/27/22 9:00:00 CDT, 0 ferrous 2023-0 No Notes: Memoria sulfate 2-28 Give with l 15:00: food. "Do Not Crush" NIFEdipine 2023-0 No 30 mg, 1 Mem oria 30 mg oral 2-28 tab, l tablet, 15:00: Route: PO, Herm bernie extended 00 Drug form: release ERTAB, Daily, Dosing Weight 86.364, kg, Start date: 11/28/22 9:00:00 SUPERVISOR TYPE DISK QUALITY CONTROL, Duration: 30 day, Stop date: 12/27/22 9:00:00 CDT, 0 donepezil 2023-0 No 10 mg, 2 Jose Francisco zhang 2-28 tab, l 15:00: Route: PO, Raul 00 Drug form: TAB, Daily, Dosing Weight 86.364, kg, Start date: 11/28/22 9:00:00 SUPERVISOR TYPE DISK QUALITY CONTROL, Duration: 30 day, Stop date: 12/27/22 9:00:00 CDT, 0 ferrous 2023-0 No Notes: Memoria sulfate 2-28 Give with l 15:00: food. "Do Not Crush" NIFEdipine 2023-0 No 30 mg, 1 Mem oria 30 mg oral 2-28 tab, l tablet, 15:00: Route: PO, Herm bernie Drug form: release ERTAB, Daily, Dosing Weight 86.364, kg, Start date: 11/28/22 9:00:00 SUPERVISOR TYPE DISK QUALITY CONTROL, Duration: 30 day, Stop date: 12/27/22 9:00:00 CDT, 0 donepezil 2023-0 No 10 mg, 2 Jose Francisco zhang 2-28 tab, l 15:00: Route: PO, Secor 00 Drug form: TAB, Daily, Dosing Weight 86.364, kg, Start date: 11/28/22 9:00:00 SUPERVISOR TYPE DISK QUALITY CONTROL, Duration: 30 day, Stop date: 12/27/22 9:00:00 CDT, 0 ferrous 2023-0 No Notes: Memoria sulfate 2-28 Give with l 15:00: food. "Do Not Crush" NIFEdipine 2023-0 No 30 mg, 1 Mem oria 30 mg oral 2-28 tab, l tablet, 15:00: Route: PO, Herm bernie extended Drug form: release ERTAB, Daily, Dosing Weight 86.364, kg, Start date: 11/28/22 9:00:00 SUPERVISOR TYPE DISK QUALITY CONTROL, Duration: 30 day, Stop date: 12/27/22 9:00:00 CDT, 0 donepezil 2023-0 No 10 mg, 2 Jose Francisco zhang 2-28 tab, l 15:00: Route: PO, Secor 00 Drug form: TAB, Daily, Dosing Weight 86.364, kg, Start date: 11/28/22 9:00:00 SUPERVISOR TYPE DISK QUALITY CONTROL, Duration: 30 day, Stop date: 12/27/22 9:00:00 CDT, 0 ferrous 2023-0 No Notes: Memoria sulfate 2-28 Give with l 15:00: food. "Do Not Crush" NIFEdipine 2023-0 No 30 mg, 1 Mem oria 30 mg oral 2-28 tab, l tablet, 15:00: Route: PO, Herm bernie extended Drug form: release ERTAB, Daily, Dosing Weight 86.364, kg, Start date: 11/28/22 9:00:00 SUPERVISOR TYPE DISK QUALITY CONTROL, Duration: 30 day, Stop date: 12/27/22 9:00:00 CDT, 0 donepezil 2023-0 No 10 mg, 2 Jose Francisco zhang 2-28 tab, l 15:00: Route: PO, Drug form: TAB, Daily, Dosing Weight 86.364, kg, Start date: 11/28/22 9:00:00 SUPERVISOR TYPE DISK QUALITY CONTROL, Duration: 30 day, Stop date: 12/27/22 9:00:00 CDT, 0 ferrous 2023-0 No Notes: Memoria sulfate 2-28 Give with l 15:00: food. "Do Not Crush" NIFEdipine 2023-0 No 30 mg, 1 Mem oria 30 mg oral 2-28 tab, l tablet, 15:00: Route: PO, Herm bernie extended Drug form: release ERTAB, Daily, Dosing Weight 86.364, kg, Start date: 11/28/22 9:00:00 SUPERVISOR TYPE DISK QUALITY CONTROL, Duration: 30 day, Stop date: 12/27/22 9:00:00 CDT, 0 donepezil 2023-0 No 10 mg, 2 Jose Francisco zhang 2-28 tab, l 15:00: Route: PO, Drug form: TAB, Daily, Dosing Weight 86.364, kg, Start date: 11/28/22 9:00:00 SUPERVISOR TYPE DISK QUALITY CONTROL, Duration: 30 day, Stop date: 12/27/22 9:00:00 CDT, 0 ferrous 2023-0 No Notes: Memoria sulfate 2-28 Give with l 15:00: food. "Do Not Crush" NIFEdipine 2023-0 No 30 mg, 1 Mem oria 30 mg oral 2-28 tab, l tablet, 15:00: Route: PO, Herm bernie extended Drug form: release ERTAB, Daily, Dosing Weight 86.364, kg, Start date: 11/28/22 9:00:00 SUPERVISOR TYPE DISK QUALITY CONTROL, Duration: 30 day, Stop date: 12/27/22 9:00:00 [...] ne 2-28 microgram, l 12:00: 1 tab, Secor 00 Route: PO, Drug form: TAB, Q6AM, Dosing Weight 86.364, kg, Start date: 11/28/22 6:00:00 SUPERVISOR TYPE DISK QUALITY CONTROL, Duration: 30 day, Stop date: 12/27/22 6:00:00 CDT, 0 levothyroxi 2022-0 No 112 Memori a ne 2-28 microgram, l 12:00: 1 tab, Secor 00 Route: PO, Drug form: TAB, Q6AM, Dosing Weight 86.364, kg, Start date: 11/28/22 6:00:00 SUPERVISOR TYPE DISK QUALITY CONTROL, Duration: 30 day, Stop date: 12/27/22 6:00:00 CDT, 0 levothyroxi 2023-0 No 112 Memori a ne 2-28 microgram, l 12:00: 1 tab, Raul 00 Route: PO, Drug form: TAB, Q6AM, Dosing Weight 86.364, kg, Start date: 11/28/22 6:00:00 SUPERVISOR TYPE DISK QUALITY CONTROL, Duration: 30 day, Stop date: 12/27/22 6:00:00 CDT, 0 levothyroxi 2023-0 No 112 Memori a ne 2-28 microgram, l 12:00: 1 tab, Secor 00 Route: PO, Drug form: TAB, Q6AM, Dosing Weight 86.364, kg, Start date: 11/28/22 6:00:00 SUPERVISOR TYPE DISK QUALITY CONTROL, Duration: 30 day, Stop date: 12/27/22 6:00:00 CDT, 0 levothyroxi 2023-0 No 112 Memori a ne 2-28 microgram, l 12:00: 1 tab, Secor 00 Route: PO, Drug form: TAB, Q6AM, Dosing Weight 86.364, kg, Start date: 11/28/22 6:00:00 SUPERVISOR TYPE DISK QUALITY CONTROL, Duration: 30 day, Stop date: 12/27/22 6:00:00 CDT, 0 levothyroxi 2023-0 No 112 Memori a ne 2-28 microgram, l 12:00: 1 tab, Raul 00 Route: PO, Drug form: TAB, Q6AM, Dosing Weight 86.364, kg, Start date: 11/28/22 6:00:00 SUPERVISOR TYPE DISK QUALITY CONTROL, Duration: 30 day, Stop date: 12/27/22 6:00:00 CDT, 0 levothyroxi 2023-0 No 112 Memori a ne 2-28 microgram, l 12:00: 1 tab, Secor 00 Route: PO, Drug form: TAB, Q6AM, Dosing Weight 86.364, kg, Start date: 11/28/22 6:00:00 SUPERVISOR TYPE DISK QUALITY CONTROL, Duration: 30 day, Stop date: 12/27/22 6:00:00 CDT, 0 levothyroxi 2023-0 No 112 Memori a ne 2-28 microgram, l 12:00: 1 tab, Raul 00 Route: PO, Drug form: TAB, Q6AM, Dosing Weight 86.364, kg, Start date: 11/28/22 6:00:00 SUPERVISOR TYPE DISK QUALITY CONTROL, Duration: 30 day, Stop date: 12/27/22 6:00:00 CDT, 0 levothyroxi 2022-0 No 112 Memori a ne 2-28 microgram, l 12:00: 1 tab, Route: PO, Drug form: TAB, Q6AM, Dosing Weight 86.364, kg, Start date: 11/28/22 6:00:00 SUPERVISOR TYPE DISK QUALITY CONTROL, Duration: 30 day, Stop date: 12/27/22 6:00:00 CDT, 0 Wellbutrin 0 No 150 mg, 1 Me moria SR 2-28 tab, l 03:00: Route: PO, Drug form: ERTAB, Q12H, Dosing Weight 86.364, kg, Start date: 11/27/22 21:00:00 SUPERVISOR TYPE DISK QUALITY CONTROL, Duration: 30 day, Stop date: 12/27/22 9:00:00 [...] Weight 86.364, kg, Start date: 11/27/22 21:00:00 SUPERVISOR TYPE DISK QUALITY CONTROL, Duration: 30 day, Stop date: 12/26/22 21:00:00 CDT, 0 primidone 2022-0 No Notes: Memori a 2-28 (Same as: l 03:00: Mysoline) rOPINIRole No Notes: Memor ia 2-28 TIME l 03:00: CRITICAL MEDICATION (Same as: Requip) Wellbutrin 0 No 150 mg, 1 Me moria SR 2-28 tab, l 03:00: Route: PO, Drug form: ERTAB, Q12H, Dosing Weight 86.364, kg, Start date: 11/27/22 21:00:00 SUPERVISOR TYPE DISK QUALITY CONTROL, Duration: 30 day, Stop date: 12/27/22 9:00:00 [...] Weight 86.364, kg, Start date: 11/27/22 21:00:00 SUPERVISOR TYPE DISK QUALITY CONTROL, Duration: 30 day, Stop date: 12/26/22 21:00:00 CDT, 0 primidone No Notes: Memori a 2-28 (Same as: l 03:00: Mysoline) rOPINIRole No Notes: Memor ia 2-28 TIME l 03:00: CRITICAL MEDICATION (Same as: Requip) Wellbutrin No 150 mg, 1 Me moria SR 2-28 tab, l 03:00: Route: PO, Drug form: ERTAB, Q12H, Dosing Weight 86.364, kg, Start date: 11/27/22 21:00:00 SUPERVISOR TYPE DISK QUALITY CONTROL, Duration: 30 day, Stop date: 12/27/22 9:00:00 [...] Weight 86.364, kg, Start date: 11/27/22 21:00:00 SUPERVISOR TYPE DISK QUALITY CONTROL, Duration: 30 day, Stop date: 12/26/22 21:00:00 CDT, 0 primidone 2022-0 No Notes: Memori a 2-28 (Same as: l 03:00: Mysoline) rOPINIRole No Notes: Memor ia 2-28 TIME l 03:00: CRITICAL MEDICATION (Same as: Requip) Wellbutrin No 150 mg, 1 Me moria SR 2-28 tab, l 03:00: Route: PO, Drug form: ERTAB, Q12H, Dosing Weight 86.364, kg, Start date: 11/27/22 21:00:00 SUPERVISOR TYPE DISK QUALITY CONTROL, Duration: 30 day, Stop date: 12/27/22 9:00:00 [...] Weight 86.364, kg, Start date: 11/27/22 21:00:00 SUPERVISOR TYPE DISK QUALITY CONTROL, Duration: 30 day, Stop date: 12/26/22 21:00:00 CDT, 0 primidone 2022-0 No Notes: Memori a 2-28 (Same as: l 03:00: Mysoline) rOPINIRole No Notes: Memor ia 2-28 TIME l 03:00: CRITICAL MEDICATION (Same as: Requip) Wellbutrin No 150 mg, 1 Me moria SR 2-28 tab, l 03:00: Route: PO, Drug form: ERTAB, Q12H, Dosing Weight 86.364, kg, Start date: 11/27/22 21:00:00 SUPERVISOR TYPE DISK QUALITY CONTROL, Duration: 30 day, Stop date: 12/27/22 9:00:00 [...] Weight 86.364, kg, Start date: 11/27/22 21:00:00 SUPERVISOR TYPE DISK QUALITY CONTROL, Duration: 30 day, Stop date: 12/26/22 21:00:00 CDT, 0 primidone No Notes: Memori a 2-28 (Same as: l 03:00: Mysoline) rOPINIRole No Notes: Memor ia 2-28 TIME l 03:00: CRITICAL MEDICATION (Same as: Requip) Wellbutrin No 150 mg, 1 Me moria SR 2-28 tab, l 03:00: Route: PO, Drug form: ERTAB, Q12H, Dosing Weight 86.364, kg, Start date: 11/27/22 21:00:00 SUPERVISOR TYPE DISK QUALITY CONTROL, Duration: 30 day, Stop date: 12/27/22 9:00:00 [...] Weight 86.364, kg, Start date: 11/27/22 21:00:00 SUPERVISOR TYPE DISK QUALITY CONTROL, Duration: 30 day, Stop date: 12/26/22 21:00:00 CDT, 0 primidone 2022-0 No Notes: Memori a 2-28 (Same as: l 03:00: Mysoline) rOPINIRole No Notes: Memor ia 2-28 TIME l 03:00: CRITICAL MEDICATION (Same as: Requip) Wellbutrin No 150 mg, 1 Me moria SR 2-28 tab, l 03:00: Route: PO, Drug form: ERTAB, Q12H, Dosing Weight 86.364, kg, Start date: 11/27/22 21:00:00 SUPERVISOR TYPE DISK QUALITY CONTROL, Duration: 30 day, Stop date: 12/27/22 9:00:00 [...] Weight 86.364, kg, Start date: 11/27/22 21:00:00 SUPERVISOR TYPE DISK QUALITY CONTROL, Duration: 30 day, Stop date: 12/26/22 21:00:00 CDT, 0 primidone 2022-0 No Notes: Memori a 2-28 (Same as: l 03:00: Mysoline) rOPINIRole 0 No Notes: Memor ia 2-28 TIME l 03:00: CRITICAL MEDICATION (Same as: Requip) Wellbutrin No 150 mg, 1 Me moria SR 2-28 tab, l 03:00: Route: PO, Drug form: ERTAB, Q12H, Dosing Weight 86.364, kg, Start date: 11/27/22 21:00:00 SUPERVISOR TYPE DISK QUALITY CONTROL, Duration: 30 day, Stop date: 12/27/22 9:00:00 [...] Weight 86.364, kg, Start date: 11/27/22 21:00:00 SUPERVISOR TYPE DISK QUALITY CONTROL, Duration: 30 day, Stop date: 12/26/22 21:00:00 CDT, 0 primidone No Notes: Memori a 2-28 (Same as: l 03:00: Mysoline) rOPINIRole No Notes: Memor ia 2-28 TIME l 03:00: CRITICAL MEDICATION (Same as: Requip) Wellbutrin No 150 mg, 1 Me moria SR 2-28 tab, l 03:00: Route: PO, Drug form: ERTAB, Q12H, Dosing Weight 86.364, kg, Start date: 11/27/22 21:00:00 SUPERVISOR TYPE DISK QUALITY CONTROL, Duration: 30 day, Stop date: 12/27/22 9:00:00 CDT, 0 Coreg No Notes: Memoria 2-28 Give with l 03:00: food. (Same As: Coreg) Lexapro No Notes: Memoria 2-28 (Same as: l 03:00: Lexapro) Pepcid 40 2023-0 No Notes: Memori a mg oral 2-28 (Same as: l tablet 03:00: Pepcid) atorvastati 2022-0 No 20 mg, 1 Me moria n 2-28 tab, l 03:00: Route: PO, Drug form: TAB, Bedtime, Dosing Weight 86.364, kg, Start date: 11/27/22 21:00:00 SUPERVISOR TYPE DISK QUALITY CONTROL, Duration: 30 day, Stop date: 12/26/22 21:00:00 CDT, 0 primidone 2022-0 No Notes: Memori a 2-28 (Same as: l 03:00: Mysoline) rOPINIRole 2022-0 No Notes: Memor ia 2-28 TIME l 03:00: CRITICAL MEDICATION (Same as: Requip) rOPINIRole 2022-0 No 4 mg, 1 Jose Francisco zhang 2-27 tab, l 23:00: Route: PO, Drug form: TAB, BID, Dosing Weight 86.364, kg, Start date: 11/27/22 17:00:00 SUPERVISOR TYPE DISK QUALITY CONTROL, Duration: 30 day, Stop date: 12/27/22 9:00:00 CDT pantoprazol 3-0 No 40 mg, 1 Me moria e 2-27 tab, l 23:00: Route: PO, Drug form: ECTAB, BID, Dosing Weight 86.364, kg, Start date: 11/27/22 17:00:00 SUPERVISOR TYPE DISK QUALITY CONTROL, Duration: 30 day, Stop date: 12/27/22 9:00:00 CDT rOPINIRole 3-0 No 4 mg, 1 Jose Francisco zhang 2-27 tab, l 23:00: Route: PO, Drug form: TAB, BID, Dosing Weight 86.364, kg, Start date: 11/27/22 17:00:00 SUPERVISOR TYPE DISK QUALITY CONTROL, Duration: 30 day, Stop date: 12/27/22 9:00:00 CDT pantoprazol 2023-0 No 40 mg, 1 Me moria e 2-27 tab, l 23:00: Route: PO, Drug form: ECTAB, BID, Dosing Weight 86.364, kg, Start date: 11/27/22 17:00:00 SUPERVISOR TYPE DISK QUALITY CONTROL, Duration: 30 day, Stop date: 12/27/22 9:00:00 CDT rOPINIRole 2023-0 No 4 mg, 1 Jose Francisco zhang 2-27 tab, l 23:00: Route: PO, Secor 00 Drug form: TAB, BID, Dosing Weight 86.364, kg, Start date: 11/27/22 17:00:00 SUPERVISOR TYPE DISK QUALITY CONTROL, Duration: 30 day, Stop date: 12/27/22 9:00:00 CDT pantoprazol 2023-0 No 40 mg, 1 Me moria e 2-27 tab, l 23:00: Route: PO, Secor 00 Drug form: ECTAB, BID, Dosing Weight 86.364, kg, Start date: 11/27/22 17:00:00 SUPERVISOR TYPE DISK QUALITY CONTROL, Duration: 30 day, Stop date: 12/27/22 9:00:00 CDT rOPINIRole 2023-0 No 4 mg, 1 Jose Francisco zhang 2-27 tab, l 23:00: Route: PO, Drug form: TAB, BID, Dosing Weight 86.364, kg, Start date: 11/27/22 17:00:00 SUPERVISOR TYPE DISK QUALITY CONTROL, Duration: 30 day, Stop date: 12/27/22 9:00:00 CDT pantoprazol 2023-0 No 40 mg, 1 Me moria e 2-27 tab, l 23:00: Route: PO, Drug form: ECTAB, BID, Dosing Weight 86.364, kg, Start date: 11/27/22 17:00:00 SUPERVISOR TYPE DISK QUALITY CONTROL, Duration: 30 day, Stop date: 12/27/22 9:00:00 CDT rOPINIRole 2023-0 No 4 mg, 1 Jose Francisco zhang 2-27 tab, l 23:00: Route: PO, Drug form: TAB, BID, Dosing Weight 86.364, kg, Start date: 11/27/22 17:00:00 SUPERVISOR TYPE DISK QUALITY CONTROL, Duration: 30 day, Stop date: 12/27/22 9:00:00 CDT pantoprazol 2023-0 No 40 mg, 1 Me moria e 2-27 tab, l 23:00: Route: PO, Drug form: ECTAB, BID, Dosing Weight 86.364, kg, Start date: 11/27/22 17:00:00 SUPERVISOR TYPE DISK QUALITY CONTROL, Duration: 30 day, Stop date: 12/27/22 9:00:00 CDT rOPINIRole 2023-0 No 4 mg, 1 Jose Francisco zhang 2-27 tab, l 23:00: Route: PO, Secor 00 Drug form: TAB, BID, Dosing Weight 86.364, kg, Start date: 11/27/22 17:00:00 SUPERVISOR TYPE DISK QUALITY CONTROL, Duration: 30 day, Stop date: 12/27/22 9:00:00 CDT pantoprazol 2023-0 No 40 mg, 1 Me moria e 2-27 tab, l 23:00: Route: PO, Secor 00 Drug form: ECTAB, BID, Dosing Weight 86.364, kg, Start date: 11/27/22 17:00:00 SUPERVISOR TYPE DISK QUALITY CONTROL, Duration: 30 day, Stop date: 12/27/22 9:00:00 CDT rOPINIRole 2023-0 No 4 mg, 1 Jose Francisco zhang 2-27 tab, l 23:00: Route: PO, Drug form: TAB, BID, Dosing Weight 86.364, kg, Start date: 11/27/22 17:00:00 SUPERVISOR TYPE DISK QUALITY CONTROL, Duration: 30 day, Stop date: 12/27/22 9:00:00 CDT pantoprazol 2023-0 No 40 mg, 1 Me moria e 2-27 tab, l 23:00: Route: PO, Drug form: ECTAB, BID, Dosing Weight 86.364, kg, Start date: 11/27/22 17:00:00 SUPERVISOR TYPE DISK QUALITY CONTROL, Duration: 30 day, Stop date: 12/27/22 9:00:00 CDT rOPINIRole 2023-0 No 4 mg, 1 Jose Francisco zhang 2-27 tab, l 23:00: Route: PO, Drug form: TAB, BID, Dosing Weight 86.364, kg, Start date: 11/27/22 17:00:00 SUPERVISOR TYPE DISK QUALITY CONTROL, Duration: 30 day, Stop date: 12/27/22 9:00:00 CDT pantoprazol 2023-0 No 40 mg, 1 Me moria e 2-27 tab, l 23:00: Route: PO, Drug form: ECTAB, BID, Dosing Weight 86.364, kg, Start date: 11/27/22 17:00:00 SUPERVISOR TYPE DISK QUALITY CONTROL, Duration: 30 day, Stop date: 12/27/22 9:00:00 CDT rOPINIRole 2023-0 No 4 mg, 1 Jose Francisco zhang 2-27 tab, l 23:00: Route: PO, Raul 00 Drug form: TAB, BID, Dosing Weight 86.364, kg, Start date: 11/27/22 17:00:00 SUPERVISOR TYPE DISK QUALITY CONTROL, Duration: 30 day, Stop date: 12/27/22 9:00:00 CDT pantoprazol 2023-0 No 40 mg, 1 Me moria e 2-27 tab, l 23:00: Route: PO, Raul 00 Drug form: ECTAB, BID, Dosing Weight 86.364, kg, Start date: 11/27/22 17:00:00 SUPERVISOR TYPE DISK QUALITY CONTROL, Duration: 30 day, Stop date: 12/27/22 9:00:00 CDT valproic 2023-0 No 500 mg, 2 Jose Francisco zhang acid 250 mg 2-27 cap, l oral 22:00: Route: PO, Secor capsule(Dep 00 Drug form: ekene) CAP, Q8H, Dosing Weight 86.364, kg, Start date: 11/27/22 16:00:00 SUPERVISOR TYPE DISK QUALITY CONTROL, Duration: 7 day, Stop date: 12/04/22 8:00:00 SUPERVISOR TYPE DISK QUALITY CONTROL, 0 valproic 2023-0 No 500 mg, 2 Jose Francisco zhang acid 250 mg 2-27 cap, l oral 22:00: Route: PO, Raul capsule(Dep 00 Drug form: ekene) CAP, Q8H, Dosing Weight 86.364, kg, Start date: 11/27/22 16:00:00 SUPERVISOR TYPE DISK QUALITY CONTROL, Duration: 7 day, Stop date: 12/04/22 8:00:00 SUPERVISOR TYPE DISK QUALITY CONTROL, 0 valproic 2023-0 No 500 mg, 2 Jose Francisco zhang acid 250 mg 2-27 cap, l oral 22:00: Route: PO, Secor capsule(Dep 00 Drug form: ekene) CAP, Q8H, Dosing Weight 86.364, kg, Start date: 11/27/22 16:00:00 SUPERVISOR TYPE DISK QUALITY CONTROL, Duration: 7 day, Stop date: 12/04/22 8:00:00 SUPERVISOR TYPE DISK QUALITY CONTROL, 0 valproic 2023-0 No 500 mg, 2 Jose Francisco zhang acid 250 mg 2-27 cap, l oral 22:00: Route: PO, Secor capsule(Dep 00 Drug form: ekene) CAP, Q8H, Dosing Weight 86.364, kg, Start date: 11/27/22 16:00:00 SUPERVISOR TYPE DISK QUALITY CONTROL, Duration: 7 day, Stop date: 12/04/22 8:00:00 SUPERVISOR TYPE DISK QUALITY CONTROL, 0 valproic 2023-0 No 500 mg, 2 Jose Francisco zhang acid 250 mg 2-27 cap, l oral 22:00: Route: PO, Secor capsule(Dep 00 Drug form: ekene) CAP, Q8H, Dosing Weight 86.364, kg, Start date: 11/27/22 16:00:00 SUPERVISOR TYPE DISK QUALITY CONTROL, Duration: 7 day, Stop date: 12/04/22 8:00:00 SUPERVISOR TYPE DISK QUALITY CONTROL, 0 valproic 2023-0 No 500 mg, 2 Jose Francisco zhang acid 250 mg 2-27 cap, l oral 22:00: Route: PO, Raul capsule(Dep 00 Drug form: ekene) CAP, Q8H, Dosing Weight 86.364, kg, Start date: 11/27/22 16:00:00 SUPERVISOR TYPE DISK QUALITY CONTROL, Duration: 7 day, Stop date: 12/04/22 8:00:00 SUPERVISOR TYPE DISK QUALITY CONTROL, 0 valproic 2023-0 No 500 mg, 2 Jose Francisco zhang acid 250 mg 2-27 cap, l oral 22:00: Route: PO, Secor capsule(Dep 00 Drug form: ekene) CAP, Q8H, Dosing Weight 86.364, kg, Start date: 11/27/22 16:00:00 SUPERVISOR TYPE DISK QUALITY CONTROL, Duration: 7 day, Stop date: 12/04/22 8:00:00 SUPERVISOR TYPE DISK QUALITY CONTROL, 0 valproic 2023-0 No 500 mg, 2 Jose Francisco zhang acid 250 mg 2-27 cap, l oral 22:00: Route: PO, Secor capsule(Dep 00 Drug form: ekene) CAP, Q8H, Dosing Weight 86.364, kg, Start date: 11/27/22 16:00:00 SUPERVISOR TYPE DISK QUALITY CONTROL, Duration: 7 day, Stop date: 12/04/22 8:00:00 SUPERVISOR TYPE DISK QUALITY CONTROL, 0 valproic 2023-0 No 500 mg, 2 Jose Francisco zhang acid 250 mg 2-27 cap, l oral 22:00: Route: PO, Raul capsule(Dep 00 Drug form: ekene) CAP, Q8H, Dosing Weight 86.364, kg, Start date: 11/27/22 16:00:00 SUPERVISOR TYPE DISK QUALITY CONTROL, Duration: 7 day, Stop date: 12/04/22 8:00:00 SUPERVISOR TYPE DISK QUALITY CONTROL, 0 gabapentin 2023-0 No 100 mg, 1 Me moria 100 mg oral 2-27 cap, l capsule 17:20: Route: PO, Herm bernie 00 Drug form: CAP, Daily, Dosing Weight 86.364, kg, Priority: NOW, Start date: 11/27/22 11:20:00 SUPERVISOR TYPE DISK QUALITY CONTROL, Duration: 30 day, Stop date: 12/27/22 9:00:00 CDT, 0 gabapentin 2023-0 No 100 mg, 1 Me moria 100 mg oral 2-27 cap, l capsule 17:20: Route: PO, Herm bernie 00 Drug form: CAP, Daily, Dosing Weight 86.364, kg, Priority: NOW, Start date: 11/27/22 11:20:00 SUPERVISOR TYPE DISK QUALITY CONTROL, Duration: 30 day, Stop date: 12/27/22 9:00:00 CDT, 0 gabapentin 2023-0 No 100 mg, 1 Me moria 100 mg oral 2-27 cap, l capsule 17:20: Route: PO, Herm bernie 00 Drug form: CAP, Daily, Dosing Weight 86.364, kg, Priority: NOW, Start date: 11/27/22 11:20:00 SUPERVISOR TYPE DISK QUALITY CONTROL, Duration: 30 day, Stop date: 12/27/22 9:00:00 CDT, 0 gabapentin 2023-0 No 100 mg, 1 Me moria 100 mg oral 2-27 cap, l capsule 17:20: Route: PO, Herm bernie 00 Drug form: CAP, Daily, Dosing Weight 86.364, kg, Priority: NOW, Start date: 11/27/22 11:20:00 SUPERVISOR TYPE DISK QUALITY CONTROL, Duration: 30 day, Stop date: 12/27/22 9:00:00 CDT, 0 gabapentin 2023-0 No 100 mg, 1 Me moria 100 mg oral 2-27 cap, l capsule 17:20: Route: PO, Herm bernie 00 Drug form: CAP, Daily, Dosing Weight 86.364, kg, Priority: NOW, Start date: 11/27/22 11:20:00 SUPERVISOR TYPE DISK QUALITY CONTROL, Duration: 30 day, Stop date: 12/27/22 9:00:00 CDT, 0 gabapentin 2023-0 No 100 mg, 1 Me moria 100 mg oral 2-27 cap, l capsule 17:20: Route: PO, Herm bernie 00 Drug form: CAP, Daily, Dosing Weight 86.364, kg, Priority: NOW, Start date: 11/27/22 11:20:00 SUPERVISOR TYPE DISK QUALITY CONTROL, Duration: 30 day, Stop date: 12/27/22 9:00:00 CDT, 0 gabapentin 2023-0 No 100 mg, 1 Me moria 100 mg oral 2-27 cap, l capsule 17:20: Route: PO, Herm bernie 00 Drug form: CAP, Daily, Dosing Weight 86.364, kg, Priority: NOW, Start date: 11/27/22 11:20:00 SUPERVISOR TYPE DISK QUALITY CONTROL, Duration: 30 day, Stop date: 12/27/22 9:00:00 CDT, 0 gabapentin 2023-0 No 100 mg, 1 Me moria 100 mg oral 2-27 cap, l capsule 17:20: Route: PO, Herm bernie 00 Drug form: CAP, Daily, Dosing Weight 86.364, kg, Priority: NOW, Start date: 11/27/22 11:20:00 SUPERVISOR TYPE DISK QUALITY CONTROL, Duration: 30 day, Stop date: 12/27/22 9:00:00 CDT, 0 gabapentin 2023-0 No 100 mg, 1 Me moria 100 mg oral 2-27 cap, l capsule 17:20: Route: PO, Herm bernie Drug form: CAP, Daily, Dosing Weight 86.364, kg, Priority: NOW, Start date: 11/27/22 11:20:00 SUPERVISOR TYPE DISK QUALITY CONTROL, Duration: 30 day, Stop date: 12/27/22 9:00:00 [...] zhang am 2-27 (Same l 15:00: as:Keppra) Secor 00 docusate No Notes: Memoria 2-27 (Same as: l 15:00: Colace) Raul 00 (Do Not Crush) senna No Notes: Memoria 2-27 (Same as: l 15:00: Senokot) Secor 00 Saline No Notes: Memoria Flush 0.9% 2-27 (Same as: l 15:00: BD Secor 00 Posiflush) levETIRAcet No Notes: Jose Francisco zhang am 2-27 (Same l 15:00: as:Keppra) Secor 00 docusate No Notes: Memoria 2-27 (Same as: l 15:00: Colace) Secor 00 (Do Not Crush) senna No Notes: Memoria 2-27 (Same as: l 15:00: Senokot) Secor 00 Saline No Notes: Memoria Flush 0.9% 2-27 (Same as: l 15:00: BD Secor 00 Posiflush) levETIRAcet No Notes: Jose Francisco zhang am 2-27 (Same l 15:00: as:Keppra) Raul 00 docusate No Notes: Memoria 2-27 (Same as: l 15:00: Colace) Secor 00 (Do Not Crush) senna No Notes: Memoria 2-27 (Same as: l 15:00: Senokot) Raul 00 Saline No Notes: Memoria Flush 0.9% 2-27 (Same as: l 15:00: BD Secor 00 Posiflush) levETIRAcet No Notes: Jose Francisco zhang am 2-27 (Same l 15:00: as:Keppra) Secor 00 docusate No Notes: Memoria 2-27 (Same as: l 15:00: Colace) Raul 00 (Do Not Crush) senna No Notes: Memoria 2-27 (Same as: l 15:00: Senokot) Secor 00 Saline No Notes: Memoria Flush 0.9% 2-27 (Same as: l 15:00: BD Raul 00 Posiflush) levETIRAcet No Notes: Jose Francisco zhang am 2-27 (Same l 15:00: as:Keppra) Secor 00 docusate No Notes: Memoria 2-27 (Same as: l 15:00: Colace) Secor 00 (Do Not Crush) senna No Notes: Memoria 2-27 (Same as: l 15:00: Senokot) Secor 00 Saline No Notes: Memoria Flush 0.9% 2-27 (Same as: l 15:00: BD Secor 00 Posiflush) levETIRAcet No Notes: Jose Francisco zhang am 2-27 (Same l 15:00: as:Keppra) Secor 00 docusate No Notes: Memoria 2-27 (Same as: l 15:00: Colace) Raul 00 (Do Not Crush) senna No Notes: Memoria 2-27 (Same as: l 15:00: Senokot) Secor 00 Saline No Notes: Memoria Flush 0.9% 2-27 (Same as: l 15:00: BD Secor 00 Posiflush) levETIRAcet No Notes: Jose Francisco zhang am 2-27 (Same l 15:00: as:Keppra) Raul 00 docusate No Notes: Memoria 2-27 (Same as: l 15:00: Colace) Raul 00 (Do Not Crush) senna No Notes: Memoria 2-27 (Same as: l 15:00: Senokot) Secor Saline No Notes: Memoria Flush 0.9% 2-27 (Same as: l 15:00: BD Raul 00 Posiflush) acetaminoph No Notes: Do M emoria en 2-27 not exceed l 09:01: 4 gm/day. Secor 00 (Same as: Tylenol) bisacodyl No Notes: Memori a 2-27 (Same As: l 09:01: Dulcolax, Raul 00 Bisco-Lax) ondansetron No Notes: [...] Weight 86.364, kg, Start date: 11/27/22 3:01:00 SUPERVISOR TYPE DISK QUALITY CONTROL, Duration: 3 doses or times, Stop date: 11/27/22 3:31:00 SUPERVISOR TYPE DISK QUALITY CONTROL, 0 Tylenol No Notes: Do Memor ia with 2-27 not exceed l Codeine #3 09:01: 4gm/day of H ermann oral tablet 00 acetaminop hen. (Same as: Tylenol with Codeine # 3) tramadol No Notes: Not Mem oria 2-27 to exceed l 09:01: 400mg/day. Secor 00 (Same As: Ultram) Saline No Notes: Memoria Flush 0.9% 2-27 (Same as: l 09:01: BD Raul Posiflush) Insulin No Notes: Memoria regular 2-27 (Same as: l 09:01: Humulin R) Secor 00 Roll in palms of hands gently; Do not shake vigorously . WASTE: F/P - Black; E - Municipal Trash Bin Stable for 31 days at room temperatur e Expires in days from ____Date acetaminoph No Notes: Do M emoria en 2-27 not exceed l 09:01: 4 gm/day. 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 (Same as: Tylenol with Codeine # 3) tramadol No Notes: Not Mem oria 2-27 to exceed l 09:01: 400mg/day. Raul 00 (Same As: Ultram) Saline No Notes: Memoria Flush 0.9% - (Same as: l 09:01: BD Secor Posiflush) Insulin No Notes: Memoria regular 2-27 (Same as: l 09:01: Humulin R) Roll in palms of hands gently; Do not shake vigorously . WASTE: F/P - Black; E - Municipal Trash Bin Stable for 31 days at room temperatur e Expires in days from ____Date acetaminoph No Notes: Do M emoria en 2- not exceed l 09:01: 4 gm/day. Secor (Same as: Tylenol) bisacodyl No Notes: Memori [...] Weight 86.364, kg, Start date: 11/27/22 3:01:00 SUPERVISOR TYPE DISK QUALITY CONTROL, Duration: 3 doses or times, Stop date: 11/27/22 3:31:00 SUPERVISOR TYPE DISK QUALITY CONTROL, 0 Tylenol No Notes: Do Memor ia [...] a 2- (Same As: l 09:: Dulcolax, Secor 00 Bisco-Lax) ondansetron No Notes: Jose Francisco zhang 2-27 (Same as: l 09:: Zofran) Secor 00 MEDICATION WASTE Product Size: 4 mg Product Wasted: ___ mg hydrALAZINE No Notes: Jose Francisco zhang 2-27 (Same as: l 09:: Apresoline ) Push over 5 minutes labetalol No 10 mg, 2 Jose Francisco zhang 2-27 mL, Route: l 09:: IVP, Drug form: INJ, Q15Min, Dosing Weight 86.364, kg, Start date: 11/27/22 3:01:00 SUPERVISOR TYPE DISK QUALITY CONTROL, Duration: 3 doses or times, Stop date: 11/27/22 3:31:00 SUPERVISOR TYPE DISK QUALITY CONTROL, 0 Tylenol No Notes: Do Memor ia with 2-27 not exceed l Codeine #3 09:01: 4gm/day of H ermann oral tablet 00 acetaminop hen. (Same as: Tylenol with Codeine # 3) tramadol No Notes: Not Mem oria 2-27 to exceed l 09:01: 400mg/day. Secor 00 (Same As: Ultram) Saline No Notes: Memoria Flush 0.9% 11-27 (Same as: l 09:: BD Raul Posiflush) Insulin No Notes: Memoria regular - (Same as: l 09:: Humulin R) Raul 00 Roll in palms of hands gently; Do not shake vigorously . WASTE: F/P - Black; E - Municipal Trash Bin Stable for 31 days at room temperatur e Expires in days from ____Date acetaminoph No Notes: Do M emoria en - not exceed l 09:01: 4 gm/day. 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 (Same as: Tylenol with Codeine # 3) tramadol No Notes: Not Mem oria 2-27 to exceed l 09:: 400mg/day. Secor (Same As: Ultram) Saline No Notes: Memoria Flush 0.9% - (Same as: l 09:: BD Secor Posiflush) Insulin No Notes: Memoria regular 2-27 (Same as: l 09:01: Humulin R) Roll in palms of hands gently; Do not shake vigorously . WASTE: F/P - Black; E - Municipal Trash Bin Stable for 31 days at room temperatur e Expires in days from ____Date acetaminoph No Notes: Do M emoria en - not exceed l 09:01: 4 gm/day. Secor 00 (Same as: Tylenol) bisacodyl No Notes: [...] Weight 86.364, kg, Start date: 11/27/22 3:01:00 SUPERVIS[employer] QUALITY CONTROL, Duration: 3 doses or times, Stop date: 11/27/22 3:31:00 SUPERVISOR [employer]K QUALITY CONTROL, 0 Tylenol No Notes: Do Memor ia [...] Raul Posiflush) Insulin No Notes: Memoria regular 2-27 [...] a 2-27 (Same As: l 09:: Dulcolax, Secor Bisco-Lax) ondansetron No Notes: Jose Francisco zhang [...] Weight 86.364, kg, Start date: 11/27/22 3:01:00 SUPERVISOR [employer]K QUALITY CONTROL, Duration: 3 doses or times, Stop date: 11/27/22 3:31:00 SUPERVISOR [employer]K QUALITY CONTROL, 0 Tylenol No Notes: Do Memor ia with 2-27 not exceed l Codeine #3 09:01: 4gm/day of H ermann oral tablet 00 acetaminop hen. (Same as: Tylenol with Codeine # 3) tramadol No Notes: Not Mem oria 2-27 to exceed l 09:01: 400mg/day. Secor (Same As: Ultram) Saline No Notes: Memoria [...] 2-27 not exceed l 09:01: 4 gm/day. 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 (Same as: Tylenol with Codeine # 3) tramadol No Notes: Not Mem oria 2- to exceed l 09:01: 400mg/day. Raul (Same As: Ultram) Saline No Notes: Memoria Flush 0.9% 11-27 (Same as: l 09:01: BD Posiflush) Insulin No Notes: Memoria regular - (Same as: l 09:01: Humulin R) Secor 00 Roll in palms of hands gently; Do not shake vigorously . WASTE: F/P - Black; E - Municipal Trash Bin Stable for 31 days at room [facility] e Expires in days from ____Date acetaminoph No Notes: Do M emoria en - not exceed l 09:01: 4 gm/day. 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 (Same as: Tylenol with Codeine # 3) tramadol No Notes: Not Mem oria 2-27 to exceed l 09:01: 400mg/day. Secor (Same As: Ultram) Saline No Notes: Memoria [...] 11-27 Route: PO, l 06:27: Drug form: Secor 00 TAB, ONCE, Dosing Weight 86.364, kg, Priority: STAT, Start date: 11/27/22 0:27:00 [employer], Stop date: 11/27/22 0:27:00 [employer] Keppra 2023-0 No 1,000 mg, Memori a 11-27 Route: l 06:27: IVPB, Drug Secor 00 form: INJ, ONCE, Dosing Weight 86.364, kg, Loading Dose, Priority: STAT, Start date: 11/27/22 0:27:00 [employer]PER[employer]OR [employer], Stop date: 11/27/22 0:27:00 [employer] acetaminoph 2023-0 No 1,000 mg, M emoria en 11-27 Route: PO, l 06:27: Drug form: Raul 00 TAB, ONCE, Dosing Weight 86.364, kg, Priority: STAT, Start date: 11/27/22 0:27:00 SUPER[employer]OR [employer], Stop date: 11/27/22 0:27:00 SU[employer]OR [employer] Keppra 2023-0 No 1,000 mg, Memori a 11-27 Route: l 06:27: IVPB, Drug Raul 00 form: INJ, ONCE, Dosing Weight 86.364, kg, Loading Dose, Priority: STAT, Start date: 11/27/22 0:27:00 SUPER[employer]OR [employer], Stop date: 11/27/22 0:27:00 [employer] acetaminoph 2023-0 No 1,000 mg, M emoria en 11-27 Route: PO, l 06:27: Drug form: Secor 00 TAB, ONCE, Dosing Weight 86.364, kg, Priority: STAT, Start date: 11/27/22 0:27:00 SUPER[employer]OR [employer], Stop date: 11/27/22 0:27:00 SUPER[employer]OR [employer] Keppra 2023-0 No 1,000 mg, Memori a 11-27 Route: l 06:27: IVPB, Drug Raul 00 form: INJ, ONCE, Dosing Weight 86.364, kg, Loading Dose, Priority: STAT, Start date: 11/27/22 0:27:00 SU[employer]OR [employer], Stop date: 11/27/22 0:27:00 SUPER[employer]OR [employer] acetaminoph 2023-0 No 1,000 mg, M emoria en 11-27 Route: PO, l 06:27: Drug form: Raul 00 TAB, ONCE, Dosing Weight 86.364, kg, Priority: STAT, Start date: 11/27/22 0:27:00 SUPER[employer]OR [employer], Stop date: 11/27/22 0:27:00 SUPER[employer]OR [employer] Keppra 2023-0 No 1,000 mg, Memori a 11-27 Route: l 06:27: IVPB, Drug Secor 00 form: INJ, ONCE, Dosing Weight 86.364, kg, Loading Dose, Priority: STAT, Start date: 11/27/22 0:27:00 SUPER[employer]OR [employer], Stop date: 11/27/22 0:27:00 [employer]PER[employer]OR [employer] acetaminoph 2023-0 No 1,000 mg, M emoria en 11-27 Route: PO, l 06:27: Drug form: Secor 00 TAB, ONCE, Dosing Weight 86.364, kg, Priority: STAT, Start date: 11/27/22 0:27:00 SUPER[employer]OR [employer], Stop date: 11/27/22 0:27:00 SUPER[employer]OR [employer] Keppra 2023-0 No 1,000 mg, Memori a 11-27 Route: l 06:27: IVPB, Drug Secor 00 form: INJ, ONCE, Dosing Weight 86.364, kg, Loading Dose, Priority: STAT, Start date: 11/27/22 0:27:00 SUPERVISOR [employer], Stop date: 11/27/22 0:27:00 SUPER[employer]OR [employer] acetaminoph 2023-0 No 1,000 mg, M emoria en 11-27 Route: PO, l 06:27: Drug form: Raul 00 TAB, ONCE, Dosing Weight 86.364, kg, Priority: STAT, Start date: 11/27/22 0:27:00 SUPERVISOR [employer], Stop date: 11/27/22 0:27:00 SUPERVISOR [employer] Keppra 2023-0 No 1,000 mg, Memori a 11-27 Route: l 06:27: IVPB, Drug Raul 00 form: INJ, ONCE, Dosing Weight 86.364, kg, Loading Dose, Priority: STAT, Start date: 11/27/22 0:27:00 SUPERVISOR [employer], Stop date: 11/27/22 0:27:00 SUPER[employer]OR [employer] acetaminoph 2023-0 No 1,000 mg, M emoria en 11-27 Route: PO, l 06:27: Drug form: Raul 00 TAB, ONCE, Dosing Weight 86.364, kg, Priority: STAT, Start date: 11/27/22 0:27:00 SUPERVISOR [employer], Stop date: 11/27/22 0:27:00 SUPERVISOR [employer] Keppra 2023-0 No 1,000 mg, Memori a 11-27 Route: l 06:27: IVPB, Drug Secor 00 form: INJ, ONCE, Dosing Weight 86.364, kg, Loading Dose, Priority: STAT, Start date: 11/27/22 0:27:00 SUPERVISOR [employer], Stop date: 11/27/22 0:27:00 SUPERVISOR [employer] acetaminoph 2023-0 No 1,000 mg, M emoria en 11-27 Route: PO, l 06:27: Drug form: Raul 00 TAB, ONCE, Dosing Weight 86.364, kg, Priority: STAT, Start date: 11/27/22 0:27:00 SUPERVISOR [employer], Stop date: 11/27/22 0:27:00 SUPERVISOR [employer] Keppra 3-0 No 1,000 mg, Memori a 11-27 Route: l 06:27: IVPB, Drug Secor 00 form: INJ, ONCE, Dosing Weight 86.364, kg, Loading Dose, Priority: STAT, Start date: 11/27/22 0:27:00 SUPERVISOR [employer], Stop date: 11/27/22 0:27:00 SUPERVISOR [employer] acetaminoph 3-0 No 1,000 mg, M emoria en 11-27 Route: PO, l 06:27: Drug form: Raul 00 TAB, ONCE, Dosing Weight 86.364, kg, Priority: STAT, Start date: 11/27/22 0:27:00 SUPERVISOR [employer], Stop date: 11/27/22 0:27:00 SUPERVISOR [employer] Keppra 3-0 No 1,000 mg, Memori a 11-27 Route: l 06:27: IVPB, Drug Secor 00 form: INJ, ONCE, Dosing Weight 86.364, kg, Loading Dose, Priority: STAT, Start date: 11/27/22 0:27:00 SUPERVISOR [employer], Stop date: 11/27/22 0:27:00 SUPERVISOR [employer] heparin 2022-0 No Notes: Memoria 5000 2-22 porcine l units/mL 22:00: heparin Ajay n injectable 00 solution heparin 2022-0 No Notes: Memoria 5000 2-22 porcine l units/mL 22:00: heparin Ajay n injectable 00 solution heparin 3-0 No Notes: Memoria 5000 2-22 [...] day, # 12 tab, 0 Refill(s), Pharmacy: [facility] #[id number], 149.86, cm, 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[employer], Height, 86.364, kg, 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[employer], Weight Tylenol 2022-0 No 1 tab, PO, Jose Francisco zhang with 2-22 Q6H, PRN l Codeine #3 19:14: Pain Score H ermann oral tablet 00 4-6, X 3 day, # 12 tab, 0 Refill(s), Pharmacy: [facility] #[id number], 149.86, cm, 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TYPE [employer], Height, 86.364, kg, 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[employer], Weight Tylenol 2022-0 No 1 tab, PO, Jose Francisco zhang with 2-22 Q6H, PRN l Codeine #3 19:14: Pain Score H ermann oral tablet 00 4-6, X 3 day, # 12 tab, 0 Refill(s), Pharmacy: [facility] #[id number], 149.86, cm, 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TYPE [employer]ALITY [employer], Height, 86.364, kg, 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TYPE [employer] QUALITY [employer], Weight Tylenol 2022-0 No 1 tab, PO, Jose Francisco zhang with 2-22 Q6H, PRN l Codeine #3 19:14: Pain Score H ermann oral tablet 00 4-6, X 3 day, # 12 tab, 0 Refill(s), Pharmacy: [id number], 149.86, cm, 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TYPE [employer]AL[employer], Height, 86.364, kg, 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TYPE [employer] QUALITY [employer]OL, Weight Tylenol 2023-0 No 1 tab, PO, Jose Francisco zhang with 2-22 Q6H, PRN l Codeine #3 19:14: Pain Score H ermann oral tablet 00 4-6, X 3 day, # 12 tab, 0 Refill(s), Pharmacy: [facility] #[id number], 149.86, cm, 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TYPE [employer] QUALITY [employer]OL, Height, 86.364, kg, 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TYPE [employer] QUALITY [employer]OL, Weight Tylenol 2023-0 No 1 tab, PO, Jose Francisco zhang with 2-22 Q6H, PRN l Codeine #3 19:14: Pain Score H ermann oral tablet 00 4-6, X 3 day, # 12 tab, 0 Refill(s), Pharmacy: [id number], 149.86, cm, 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TYPE [employer] QUALITY [employer]OL, Height, 86.364, kg, 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TYPE [employer] QUALITY [employer]OL, Weight Tylenol 2023-0 No 1 tab, PO, Jose Francisco zhang with 2-22 Q6H, PRN l Codeine #3 19:14: Pain Score H ermann oral tablet 00 4-6, X 3 day, # 12 tab, 0 Refill(s), Pharmacy: [id number], 149.86, cm, 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TYPE [employer] QUALITY [employer]OL, Height, 86.364, kg, 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TYPE [employer]K QUALITY CONTROL, Weight Tylenol 2023-0 No 1 tab, PO, Jose Francisco zhang with 2-22 Q6H, PRN l Codeine #3 19:14: Pain Score H ermann oral tablet 00 4-6, X 3 day, # 12 tab, 0 Refill(s), Pharmacy: [id number], 149.86, cm, 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TYPE [employer] QUALITY [employer]OL, Height, 86.364, kg, 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TYPE [employer]K QUALITY CONTROL, Weight Tylenol 2022-0 No 1 tab, PO, Jose Francisco zhang with 2-22 Q6H, PRN l Codeine #3 19:14: Pain Score H ermann oral tablet 00 4-6, X 3 day, # 12 tab, 0 Refill(s), Pharmacy: [id number], 149.86, cm, 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TYPE [employer]K QUALITY [employer]OL, Height, 86.364, kg, 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TYPE [employer]K QUALITY CONTROL, Weight Tylenol 2022-0 No 1 tab, PO, Jose Francisco zhang with 2-22 Q6H, PRN l Codeine #3 19:14: Pain Score H ermann oral tablet 00 4-6, X 3 day, # 12 tab, 0 Refill(s), Pharmacy: [id number], 149.86, cm, 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TYPE [employer]K QUALITY CONTROL, Height, 86.364, kg, 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TYPE [employer]K QUALITY [employer]OL, Weight Tylenol 2022-0 Yes 1 tab, PO, Jose Francisco zhang with 2-22 Q6H, PRN l Codeine #3 19:14: Pain Score H ermann oral tablet 00 4-6, X 3 day, # 12 tab, 0 Refill(s), Pharmacy: [id number], 149.86, cm, 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TYPE [employer]K QUALITY [employer]OL, Height, 86.364, kg, 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TYPE [employer] QUALITY [employer]OL, Weight gabapentin 2022-0 Yes 100 mg = 1 M emoria 100 mg oral 2-22 cap, PO, l capsule 19:13: Daily, # Ajay n 00 10 cap, 0 Refill(s), Pharmacy: [id number], 149.86, cm, 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TYPE [employer]AL[employer]OL, Height, 86.364, kg, 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TYPE [employer] QUALITY [employer]OL, Weight Keppra 500 2022-0 Yes 500 mg = 1 M emoria mg oral 2-22 tab, PO, l tablet 19:13: Q12H, # 12 Jessie nn 00 tab, 0 Refill(s), Pharmacy: [facility] #[id number], 149.86, cm, 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TYPE [employer]K QUALITY CONTROL, Height, 86.364, kg, 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TYPE [employer] QUALITY [employer]OL, Weight methocarbam 2022-0 Yes 500 mg = 1 Memoria ol 500 mg 2-22 tab, PO, l oral tablet 19:13: Q8H, X 10 H ermann 00 day, # 30 tab, 0 Refill(s), Pharmacy: [id number], 149.86, cm, 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TYPE [employer]K QUALITY [employer]OL, Height, 86.364, kg, 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TYPE [employer] QUALITY [employer]OL, Weight Zofran 4 mg 2022-0 Yes 4 mg = 1 Me moria oral tablet 2-22 tab, PO, l 19:13: Q8H, PRN Raul 00 Nausea/vom iting, X 7 day, # 21 tab, 0 Refill(s), Pharmacy: [id number], 149.86, cm, 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TYPE [employer]K QUALITY [employer]OL, Height, 86.364, kg, 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TYPE [employer]K QUALITY CONTROL, Weight gabapentin 2022-0 Yes 100 mg = 1 M emoria 100 mg oral 2-22 cap, PO, l capsule 19:13: Daily, # Ajay n 00 10 cap, 0 Refill(s), Pharmacy: [id number], 149.86, cm, 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TYPE [employer]K QUALITY CONTROL, Height, 86.364, kg, 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TYPE [employer]K QUALITY CONTROL, Weight Keppra 500 2022-0 Yes 500 mg = 1 M emoria mg oral 2-22 tab, PO, l tablet 19:13: Q12H, # 12 Jessie nn 00 tab, 0 Refill(s), Pharmacy: [id number], 149.86, cm, 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TYPE [employer]K QUALITY CONTROL, Height, 86.364, kg, 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TYPE [employer]K QUALITY CONTROL, Weight methocarbam 2022-0 Yes 500 mg = 1 Memoria ol 500 mg 2-22 tab, PO, l oral tablet 19:13: Q8H, X 10 H ermann 00 day, # 30 tab, 0 Refill(s), Pharmacy: [facility] #[id number], 149.86, cm, 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TYPE [employer]K QUALITY CONTROL, Height, 86.364, kg, 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TYPE [employer]K QUALITY CONTROL, Weight Zofran 4 mg 3-0 Yes 4 mg = 1 Me moria oral tablet 2-22 tab, PO, l 19:13: Q8H, PRN Raul 00 Nausea/vom iting, X 7 day, # 21 tab, 0 Refill(s), Pharmacy: [id number], 149.86, cm, 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TYPE [employer]K QUALITY CONTROL, Height, 86.364, kg, 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TYPE [employer]K QUALITY CONTROL, Weight gabapentin 2022-0 Yes 100 mg = 1 M emoria 100 mg oral 2-22 cap, PO, l capsule 19:13: Daily, # Ajay n 00 10 cap, 0 Refill(s), Pharmacy: [id number], 149.86, cm, 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TYPE [employer]K QUALITY CONTROL, Height, 86.364, kg, 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TYPE [employer]K QUALITY CONTROL, Weight Keppra 500 2022-0 Yes 500 mg = 1 M emoria mg oral 2-22 tab, PO, l tablet 19:13: Q12H, # 12 Jessie nn 00 tab, 0 Refill(s), Pharmacy: [id number], 149.86, cm, 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TYPE DISK QUALITY CONTROL, Height, 86.364, kg, 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TYPE [employer]K QUALITY CONTROL, Weight methocarbam 3-0 Yes 500 mg = 1 Memoria ol 500 mg 2-22 tab, PO, l oral tablet 19:13: Q8H, X 10 H ermann 00 day, # 30 tab, 0 Refill(s), Pharmacy: [id number], 149.86, cm, 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TYPE DISK QUALITY CONTROL, Height, 86.364, kg, 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TYPE [employer]K QUALITY CONTROL, Weight Zofran 4 mg 3-0 Yes 4 mg = 1 Me moria oral tablet 2-22 tab, PO, l 19:13: Q8H, PRN Secor 00 Nausea/vom iting, X 7 day, # 21 tab, 0 Refill(s), Pharmacy: [id number], 149.86, cm, 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TYPE [employer]K QUALITY CONTROL, Height, 86.364, kg, 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TYPE [employer]K QUALITY CONTROL, Weight gabapentin 2022-0 Yes 100 mg = 1 M emoria 100 mg oral 2-22 cap, PO, l capsule 19:13: Daily, # Ajay n 00 10 cap, 0 Refill(s), Pharmacy: [id number], 149.86, cm, 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TYPE [employer]K QUALITY CONTROL, Height, 86.364, kg, 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TYPE [employer]K QUALITY CONTROL, Weight Keppra 500 3-0 Yes 500 mg = 1 M emoria mg oral 2-22 tab, PO, l tablet 19:13: Q12H, # 12 Jessie nn 00 tab, 0 Refill(s), Pharmacy: [id number], 149.86, cm, 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TYPE [employer]K QUALITY CONTROL, Height, 86.364, kg, 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TYPE [employer]K QUALITY CONTROL, Weight methocarbam 2022-0 Yes 500 mg = 1 Memoria ol 500 mg 2-22 tab, PO, l oral tablet 19:13: Q8H, X 10 H ermann 00 day, # 30 tab, 0 Refill(s), Pharmacy: [id number], 149.86, cm, 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TYPE DISK QUALITY CONTROL, Height, 86.364, kg, 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TYPE [employer]K QUALITY CONTROL, Weight Zofran 4 mg 3-0 Yes 4 mg = 1 Me moria oral tablet 2-22 tab, PO, l 19:13: Q8H, PRN Secor 00 Nausea/vom iting, X 7 day, # 21 tab, 0 Refill(s), Pharmacy: [id number], 149.86, cm, 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TYPE DISK QUALITY CONTROL, Height, 86.364, kg, 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TYPE [employer]K QUALITY CONTROL, Weight gabapentin 2022-0 Yes 100 mg = 1 M emoria 100 mg oral 2-22 cap, PO, l capsule 19:13: Daily, # Ajay n 00 10 cap, 0 Refill(s), Pharmacy: [id number], 149.86, cm, 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TYPE [employer]K QUALITY CONTROL, Height, 86.364, kg, 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TYPE [employer]K QUALITY CONTROL, Weight Keppra 500 2022-0 Yes 500 mg = 1 M emoria mg oral 2-22 tab, PO, l tablet 19:13: Q12H, # 12 Jessie nn 00 tab, 0 Refill(s), Pharmacy: [id number], 149.86, cm, 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TYPE [employer]K QUALITY CONTROL, Height, 86.364, kg, 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TYPE [employer]K QUALITY CONTROL, Weight methocarbam 2022-0 Yes 500 mg = 1 Memoria ol 500 mg 2-22 tab, PO, l oral tablet 19:13: Q8H, X 10 H ermann 00 day, # 30 tab, 0 Refill(s), Pharmacy: [id number], 149.86, cm, 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TYPE [employer]K QUALITY CONTROL, Height, 86.364, kg, 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TYPE [employer]K QUALITY CONTROL, Weight Zofran 4 mg 2022-0 Yes 4 mg = 1 Me moria oral tablet 2-22 tab, PO, l 19:13: Q8H, PRN Raul 00 Nausea/vom iting, X 7 day, # 21 tab, 0 Refill(s), Pharmacy: [id number], 149.86, cm, 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TYPE [employer]K QUALITY CONTROL, Height, 86.364, kg, 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TYPE [employer]K QUALITY CONTROL, Weight gabapentin 2022-0 Yes 100 mg = 1 M emoria 100 mg oral 2-22 cap, PO, l capsule 19:13: Daily, # Ajay n 00 10 cap, 0 Refill(s), Pharmacy: [id number], 149.86, cm, 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TYPE [employer]K QUALITY CONTROL, Height, 86.364, kg, 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TYPE [employer]K QUALITY CONTROL, Weight Keppra 500 2022-0 Yes 500 mg = 1 M emoria mg oral 2-22 tab, PO, l tablet 19:13: Q12H, # 12 Jessie nn 00 tab, 0 Refill(s), Pharmacy: [id number], 149.86, cm, 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TYPE [employer]K QUALITY CONTROL, Height, 86.364, kg, 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TYPE [employer]K QUALITY CONTROL, Weight methocarbam 2022-0 Yes 500 mg = 1 Memoria ol 500 mg 2-22 tab, PO, l oral tablet 19:13: Q8H, X 10 H ermann 00 day, # 30 tab, 0 Refill(s), Pharmacy: [id number], 149.86, cm, 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TYPE DISK QUALITY CONTROL, Height, 86.364, kg, 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TYPE [employer]K QUALITY CONTROL, Weight Zofran 4 mg 2022-0 Yes 4 mg = 1 Me moria oral tablet 2-22 tab, PO, l 19:13: Q8H, PRN Secor 00 Nausea/vom iting, X 7 day, # 21 tab, 0 Refill(s), Pharmacy: [id number], 149.86, cm, 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TYPE [employer]K QUALITY CONTROL, Height, 86.364, kg, 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TYPE DISK QUALITY CONTROL, Weight gabapentin 2022-0 Yes 100 mg = 1 M emoria 100 mg oral 2-22 cap, PO, l capsule 19:13: Daily, # Ajay n 00 10 cap, 0 Refill(s), Pharmacy: [id number], 149.86, cm, 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TYPE [employer]K QUALITY CONTROL, Height, 86.364, kg, 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TYPE [employer]K QUALITY CONTROL, Weight Keppra 500 2022-0 Yes 500 mg = 1 M emoria mg oral 2-22 tab, PO, l tablet 19:13: Q12H, # 12 Jessie nn 00 tab, 0 Refill(s), Pharmacy: [id number], 149.86, cm, 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TYPE [employer]K QUALITY CONTROL, Height, 86.364, kg, 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TYPE [employer]K QUALITY CONTROL, Weight methocarbam 2022-0 Yes 500 mg = 1 Memoria ol 500 mg 2-22 tab, PO, l oral tablet 19:13: Q8H, X 10 H ermann 00 day, # 30 tab, 0 Refill(s), Pharmacy: [id number], 149.86, cm, 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TYPE [employer]K QUALITY CONTROL, Height, 86.364, kg, 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TYPE [employer]K QUALITY CONTROL, Weight Zofran 4 mg 2022-0 Yes 4 mg = 1 Me moria oral tablet 2-22 tab, PO, l 19:13: Q8H, PRN Raul 00 Nausea/vom iting, X 7 day, # 21 tab, 0 Refill(s), Pharmacy: [id number], 149.86, cm, 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TYPE [employer]K QUALITY CONTROL, Height, 86.364, kg, 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TYPE [employer]K QUALITY CONTROL, Weight gabapentin 2022-0 Yes 100 mg = 1 M emoria 100 mg oral 2-22 cap, PO, l capsule 19:13: Daily, # Ajay n 00 10 cap, 0 Refill(s), Pharmacy: [id number], 149.86, cm, 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TYPE [employer]K QUALITY CONTROL, Height, 86.364, kg, 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TYPE [employer]K QUALITY CONTROL, Weight Keppra 500 2022-0 Yes 500 mg = 1 M emoria mg oral 2-22 tab, PO, l tablet 19:13: Q12H, # 12 Jessie nn 00 tab, 0 Refill(s), Pharmacy: [id number], 149.86, cm, 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TYPE [employer]K QUALITY CONTROL, Height, 86.364, kg, 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TYPE [employer]K QUALITY CONTROL, Weight methocarbam 2022-0 Yes 500 mg = 1 Memoria ol 500 mg 2-22 tab, PO, l oral tablet 19:13: Q8H, X 10 H ermann 00 day, # 30 tab, 0 Refill(s), Pharmacy: [id number], 149.86, cm, 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TYPE [employer]K QUALITY CONTROL, Height, 86.364, kg, 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TYPE [employer] QUALITY CONTROL, Weight Zofran 4 mg 3-0 Yes 4 mg = 1 Me moria oral tablet 2-22 tab, PO, l 19:13: Q8H, PRN Secor 00 Nausea/vom iting, X 7 day, # 21 tab, 0 Refill(s), Pharmacy: [id number], 149.86, cm, 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TYPE [employer] QUALITY CONTROL, Height, 86.364, kg, 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TYPE [employer] QUALITY CONTROL, Weight gabapentin 2022-0 Yes 100 mg = 1 M emoria 100 mg oral 2-22 cap, PO, l capsule 19:13: Daily, # Ajay n 00 10 cap, 0 Refill(s), Pharmacy: [id number], 149.86, cm, 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, Height, 86.364, kg, 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, Weight Keppra 500 2022-0 Yes 500 mg = 1 M emoria mg oral 2-22 tab, PO, l tablet 19:13: Q12H, # 12 Jessie nn 00 tab, 0 Refill(s), Pharmacy: [facility] #[id number], 149.86, cm, 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, Height, 86.364, kg, 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, Weight methocarbam 2022-0 Yes 500 mg = 1 Memoria ol 500 mg 2-22 tab, PO, l oral tablet 19:13: Q8H, X 10 H ermann 00 day, # 30 tab, 0 Refill(s), Pharmacy: [id number], 149.86, cm, 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, Height, 86.364, kg, 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, Weight Zofran 4 mg 3-0 Yes 4 mg = 1 Me moria oral tablet 2-22 tab, PO, l 19:13: Q8H, PRN Secor 00 Nausea/vom iting, X 7 day, # 21 tab, 0 Refill(s), Pharmacy: [facility] #[id number], 149.86, cm, 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, Height, 86.364, kg, 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, Weight gabapentin 2022-0 Yes 100 mg = 1 M emoria 100 mg oral 2-22 cap, PO, l capsule 19:13: Daily, # Ajay n 00 10 cap, 0 Refill(s), Pharmacy: [id number], 149.86, cm, 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, Height, 86.364, kg, 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, Weight Keppra 500 2022-0 Yes 500 mg = 1 M emoria mg oral 2-22 tab, PO, l tablet 19:13: Q12H, # 12 Jessie nn 00 tab, 0 Refill(s), Pharmacy: [id number], 149.86, cm, 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, Height, 86.364, kg, 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, Weight methocarbam 2022-0 Yes 500 mg = 1 Memoria ol 500 mg 2-22 tab, PO, l oral tablet 19:13: Q8H, X 10 H ermann 00 day, # 30 tab, 0 Refill(s), Pharmacy: [id number], 149.86, cm, 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, Height, 86.364, kg, 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, Weight Zofran 4 mg 2022-0 Yes 4 mg = 1 Me moria oral tablet 2-22 tab, PO, l 19:13: Q8H, PRN Secor 00 Nausea/vom iting, X 7 day, # 21 tab, 0 Refill(s), Pharmacy: [id number], 149.86, cm, 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, Height, 86.364, kg, 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, Weight gabapentin 2022-0 Yes 100 mg = 1 M emoria 100 mg oral 2-22 cap, PO, l capsule 19:13: Daily, # Ajay n 00 10 cap, 0 Refill(s), Pharmacy: [id number], 149.86, cm, 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, Height, 86.364, kg, 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, Weight Keppra 500 Yes 500 mg = 1 M emoria mg oral 2-22 tab, PO, l tablet 19:13: Q12H, # 12 Jessie nn 00 tab, 0 Refill(s), Pharmacy: [facility] #[id number], 149.86, cm, 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TYPE [employer], Height, 86.364, kg, 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[employer], 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 methocarbam Yes 500 mg = 1 Memoria ol 500 mg 2-22 tab, PO, l oral tablet 19:13: Q8H, X 10 H ermann 00 day, # 30 tab, 0 Refill(s), Pharmacy: [facility] #[id number], 149.86, cm, 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[employer], Height, 86.364, kg, 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 "Do Secor 00 Not Crush" Lasix No Notes: Memoria 2-22 (Same as: l 15:00: Lasix) May cause GI upset. Give with food or milk. levothyroxi No Notes: Jose Francisco zhang ne 2-22 Take 1 l 15:00: hour Secor 00 before or 2 hours after meal; [...] 00 mg, Route: PO, Daily, 11/22/22 9:00:00 SUPERVISOR [employer], Duration: 30 day, Stop date: 12/21/22 9:00:00 CDT donepezil No Notes: Memori a 2-22 (Same as: l 15:00: Aricept) Raul 00 ferrous No Notes: Memoria sulfate 2-22 Give with l 15:00: food. "Do Secor 00 Not Crush" Lasix No Notes: Memoria 2-22 (Same as: l 15:00: Lasix) May 00 cause GI upset. Give with food or milk. 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 "Do Secor 00 Not Crush" Lasix No Notes: Memoria [...] 00 mg, Route: PO, Daily, 11/22/22 9:00:00 SUPERVISOR [employer], Duration: 30 day, Stop date: 12/21/22 9:00:00 CDT donepezil No Notes: Memori a 2-22 (Same as: l 15:00: Aricept) Secor 00 ferrous No Notes: Memoria sulfate 2-22 Give with l 15:00: food. "Do Secor 00 Not Crush" Lasix No Notes: Memoria 2-22 (Same as: l 15:00: Lasix) May cause GI upset. Give with food or milk. levothyroxi No Notes: Jose Francisco zhang ne 2-22 Take 1 l 15:00: hour Secor 00 before or 2 hours after meal; [...] 00 mg, Route: PO, Daily, 11/22/22 9:00:00 SUPERVISOR [employer], Duration: 30 day, Stop date: 12/21/22 9:00:00 [...] 00 mg, Route: PO, Daily, 11/22/22 9:00:00 SUPER[employer]OR [employer], Duration: 30 day, Stop date: 12/21/22 9:00:00 [...] ne 2-22 Take 1 l 15:00: hour Secor 00 before or 2 hours after meal; [...] 00 mg, Route: PO, Daily, 11/22/22 9:00:00 SUPERVISOR [employer], Duration: 30 day, Stop date: 12/21/22 9:00:00 CDT donepezil No Notes: Memori a 2-22 (Same as: l 15:00: Aricept) Secor 00 ferrous No Notes: Memoria sulfate 2-22 [...] 00 mg, Route: PO, Daily, 11/22/22 9:00:00 SUPERVISOR [employer], Duration: 30 day, Stop date: 12/21/22 9:00:00 [...] ne 2-22 Take 1 l 15:00: hour Secor 00 before or 2 hours after meal; [...] 00 mg, Route: PO, Daily, 11/22/22 9:00:00 SUPERVISOR [employer], Duration: 30 day, Stop date: 12/21/22 9:00:00 CDT donepezil No Notes: Memori a 2-22 (Same as: l 15:00: Aricept) Secor ferrous No Notes: Memoria sulfate 2-22 Give with l 15:00: food. "Do Secor 00 Not Crush" Lasix No Notes: Memoria 2-22 (Same as: l 15:00: Lasix) January cause GI upset. Give with food or milk. levothyroxi No Notes: Jose Francisco zhang ne 2-22 Take 1 l 15:00: hour Secor 00 before or 2 hours after meal; [...] 00 mg, Route: PO, Daily, 11/22/22 9:00:00 SUPERVISOR [employer], Duration: 30 day, Stop date: 12/21/22 9:00:00 CDT Keppra 500 No Notes: Memor ia mg oral 2-22 (Same l tablet 03:00: as:Keppra) Jessie nn 00 Coreg No Notes: Memoria 2-22 Give with l 03:00: food. Raul 00 (Same As: Coreg) Lexapro No 20 mg, 2 Memori a 2-22 tab, l 03:00: Route: PO, Secor 00 Drug form: TAB, Q12H, Dosing Weight 86.364, kg, Start date: 11/21/22 21:00:00 [employer]OR [employer], Duration: 30 day, Stop date: 12/21/22 9:00:00 CDT, 0 Pepcid 40 No Notes: Memori a mg oral 2-22 (Same as: l tablet 03:00: Pepcid) Secor 00 lovastatin No 20 mg, 1 Mem oria 2-22 tab, l 03:00: Route: PO, Secor 00 Drug form: TAB, Bedtime, Dosing Weight 86.364, kg, Start date: 11/21/22 21:00:00 SU[employer]OR [employer], Duration: 30 day, Stop date: 12/20/22 21:00:00 CDT primidone No 50 mg, 1 Jose Francisco zhang 2-22 tab, l 03:00: Route: PO, Secor 00 Drug form: TAB, Bedtime, Dosing Weight 86.364, kg, Start date: 11/21/22 21:00:00 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 [employer], Duration: 30 day, Stop date: 12/20/22 21:00:00 CDT, 0 rOPINIRole 3-0 No 4 mg, 2 Jose Francisco zhang 2-22 tab, l 03:00: Route: PO, Drug form: TAB, Q12H, Dosing Weight 86.364, kg, Start date: 11/21/22 21:00:00 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 [employer], Duration: 30 day, Stop date: 12/21/22 9:00:00 [...] Weight 86.364, kg, Start date: 11/21/22 21:00:00 SUPERVISOR [employer], Duration: 30 day, Stop date: 12/21/22 9:00:00 CDT, 0 Pepcid 40 2022-0 No Notes: Memori a mg oral 2-22 (Same as: l tablet 03:00: Pepcid) lovastatin 2022-0 No 20 mg, 1 Mem oria 2-22 tab, l 03:00: Route: PO, Drug form: TAB, Bedtime, Dosing Weight 86.364, kg, Start date: 11/21/22 21:00:00 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 [employer], Duration: 30 day, Stop date: 12/20/22 21:00:00 CDT primidone 3-0 No 50 mg, 1 Jose Francisco zhang 2-22 tab, l 03:00: Route: PO, Drug form: TAB, Bedtime, Dosing Weight 86.364, kg, Start date: 11/21/22 21:00:00 SUPERVISOR [employer], Duration: 30 day, Stop date: 12/20/22 21:00:00 CDT, 0 rOPINIRole 2023-0 No 4 mg, 2 Jose Francisco zhang 2-22 tab, l 03:00: Route: PO, Drug form: TAB, Q12H, Dosing Weight 86.364, kg, Start date: 11/21/22 21:00:00 SUPERVISOR [employer], Duration: 30 day, Stop date: 12/21/22 9:00:00 [...] Weight 86.364, kg, Start date: 11/21/22 21:00:00 SUPERVISOR [employer], Duration: 30 day, Stop date: 12/21/22 9:00:00 CDT, 0 Pepcid 40 0 No Notes: Memori a mg oral 2-22 (Same as: l tablet 03:00: Pepcid) lovastatin 2022-0 No 20 mg, 1 Mem oria 2-22 tab, l 03:00: Route: PO, Drug form: TAB, Bedtime, Dosing Weight 86.364, kg, Start date: 11/21/22 21:00:00 SUPERVISOR [employer], Duration: 30 day, Stop date: 12/20/22 21:00:00 CDT primidone 2022-0 No 50 mg, 1 Jose Francisco zhang 2-22 tab, l 03:00: Route: PO, Drug form: TAB, Bedtime, Dosing Weight 86.364, kg, Start date: 11/21/22 21:00:00 SUPERVISOR [employer], Duration: 30 day, Stop date: 12/20/22 21:00:00 CDT, 0 rOPINIRole 2022-0 No 4 mg, 2 Jose Francisco zhang 2-22 tab, l 03:00: Route: PO, Drug form: TAB, Q12H, Dosing Weight 86.364, kg, Start date: 11/21/22 21:00:00 SUPERVISOR [employer] QUALITY [employer]OL, Duration: 30 day, Stop date: 12/21/22 9:00:00 [...] Weight 86.364, kg, Start date: 11/21/22 21:00:00 SUPERVISOR [employer], Duration: 30 day, Stop date: 12/21/22 9:00:00 CDT, 0 Pepcid 40 2022-0 No Notes: Memori a mg oral 2-22 (Same as: l tablet 03:00: Pepcid) lovastatin 2022-0 No 20 mg, 1 Mem oria 2-22 tab, l 03:00: Route: PO, Drug form: TAB, Bedtime, Dosing Weight 86.364, kg, Start date: 11/21/22 21:00:00 SUPERVISOR [employer]AL[employer]OL, Duration: 30 day, Stop date: 12/20/22 21:00:00 CDT primidone 2022-0 No 50 mg, 1 Jose Francisco zhang 2-22 tab, l 03:00: Route: PO, Drug form: TAB, Bedtime, Dosing Weight 86.364, kg, Start date: 11/21/22 21:00:00 SUPERVISOR [employer]AL[employer], Duration: 30 day, Stop date: 12/20/22 21:00:00 CDT, 0 rOPINIRole 2022-0 No 4 mg, 2 Jose Francisco zhang 2-22 tab, l 03:00: Route: PO, Drug form: TAB, Q12H, Dosing Weight 86.364, kg, Start date: 11/21/22 21:00:00 SUPERVISOR TYPE [employer] QUALITY [employer]OL, Duration: 30 day, Stop date: 12/21/22 9:00:00 [...] Weight 86.364, kg, Start date: 11/21/22 21:00:00 SUPERVISOR TYPE [employer]AL[employer]OL, Duration: 30 day, Stop date: 12/21/22 9:00:00 CDT, 0 Pepcid 40 2022-0 No Notes: Memori a mg oral 2-22 (Same as: l tablet 03:00: Pepcid) lovastatin 0 No 20 mg, 1 Mem oria 2-22 tab, l 03:00: Route: PO, Drug form: TAB, Bedtime, Dosing Weight 86.364, kg, Start date: 11/21/22 21:00:00 SUPERVISOR [employer]AL[employer]OL, Duration: 30 day, Stop date: 12/20/22 21:00:00 CDT primidone 2022-0 No 50 mg, 1 Jose Francisco zhang 2-22 tab, l 03:00: Route: PO, Drug form: TAB, Bedtime, Dosing Weight 86.364, kg, Start date: 11/21/22 21:00:00 SUPERVISOR [employer]AL[employer], Duration: 30 day, Stop date: 12/20/22 21:00:00 CDT, 0 rOPINIRole 2022-0 No 4 mg, 2 Jose Francisco zhang 2-22 tab, l 03:00: Route: PO, Drug form: TAB, Q12H, Dosing Weight 86.364, kg, Start date: 11/21/22 21:00:00 SUPERVISOR TYPE [employer] QUAL[employer]OL, Duration: 30 day, Stop date: 12/21/22 9:00:00 [...] Weight 86.364, kg, Start date: 11/21/22 21:00:00 SUPERVISOR TYPE [employer] QUAL[employer]OL, Duration: 30 day, Stop date: 12/21/22 9:00:00 CDT, 0 Pepcid 40 No Notes: Memori a mg oral 2-22 (Same as: l tablet 03:00: Pepcid) lovastatin No 20 mg, 1 Mem oria 2-22 tab, l 03:00: Route: PO, Drug form: TAB, Bedtime, Dosing Weight 86.364, kg, Start date: 11/21/22 21:00:00 SUPERVISOR TYPE [employer]AL[employer]OL, Duration: 30 day, Stop date: 12/20/22 21:00:00 CDT primidone 0 No 50 mg, 1 Jose Francisco zhang 2-22 tab, l 03:00: Route: PO, Drug form: TAB, Bedtime, Dosing Weight 86.364, kg, Start date: 11/21/22 21:00:00 SUPERVISOR [employer] QUAL[employer]OL, Duration: 30 day, Stop date: 12/20/22 21:00:00 CDT, 0 rOPINIRole 0 No 4 mg, 2 Jose Francisco zhang 2-22 tab, l 03:00: Route: PO, Drug form: TAB, Q12H, Dosing Weight 86.364, kg, Start date: 11/21/22 21:00:00 SUPERVISOR TYPE [employer] QUAL[employer]OL, Duration: 30 day, Stop date: 12/21/22 9:00:00 [...] Weight 86.364, kg, Start date: 11/21/22 21:00:00 SUPERVISOR TYPE [employer] QUAL[employer]OL, Duration: 30 day, Stop date: 12/21/22 9:00:00 CDT, 0 Pepcid 40 No Notes: Memori a mg oral 2-22 (Same as: l tablet 03:00: Pepcid) lovastatin No 20 mg, 1 Mem oria 2-22 tab, l 03:00: Route: PO, Drug form: TAB, Bedtime, Dosing Weight 86.364, kg, Start date: 11/21/22 21:00:00 SUPERVISOR TYPE [employer]AL[employer]OL, Duration: 30 day, Stop date: 12/20/22 21:00:00 CDT primidone No 50 mg, 1 Jose Francisco zhang 2-22 tab, l 03:00: Route: PO, Drug form: TAB, Bedtime, Dosing Weight 86.364, kg, Start date: 11/21/22 21:00:00 SUPERVISOR TYPE [employer] QUALITY [employer]OL, Duration: 30 day, Stop date: 12/20/22 21:00:00 CDT, 0 rOPINIRole No 4 mg, 2 Jose Francisco zhang 2-22 tab, l 03:00: Route: PO, Drug form: TAB, Q12H, Dosing Weight 86.364, kg, Start date: 11/21/22 21:00:00 SUPERVISOR TYPE [employer] QUALITY [employer]OL, Duration: 30 day, Stop date: 12/21/22 9:00:00 [...] Weight 86.364, kg, Start date: 11/21/22 21:00:00 SUPERVISOR TYPE [employer] QUALITY [employer]OL, Duration: 30 day, Stop date: 12/21/22 9:00:00 CDT, 0 Pepcid 40 No Notes: Memori a mg oral 2-22 (Same as: l tablet 03:00: Pepcid) lovastatin No 20 mg, 1 Mem oria 2-22 tab, l 03:00: Route: PO, Drug form: TAB, Bedtime, Dosing Weight 86.364, kg, Start date: 11/21/22 21:00:00 SUPERVISOR TYPE [employer] QUALITY [employer]OL, Duration: 30 day, Stop date: 12/20/22 21:00:00 CDT primidone 0 No 50 mg, 1 Jose Francisco zhang 2-22 tab, l 03:00: Route: PO, Drug form: TAB, Bedtime, Dosing Weight 86.364, kg, Start date: 11/21/22 21:00:00 SUPERVISOR TYPE [employer] QUAL[employer]OL, Duration: 30 day, Stop date: 12/20/22 21:00:00 CDT, 0 rOPINIRole 0 No 4 mg, 2 Jose Francisco zhang 2-22 tab, l 03:00: Route: PO, Drug form: TAB, Q12H, Dosing Weight 86.364, kg, Start date: 11/21/22 21:00:00 SUPERVISOR TYPE [employer]OL, Duration: 30 day, Stop date: 12/21/22 9:00:00 CDT, 0 Lipitor No Notes: Memoria 2-22 (Same As: l 03:00: Lipitor) Keppra 500 No Notes: Memor ia mg oral 2-22 (Same l tablet 03:00: as:Keppra) Jessie Coreg No Notes: Memoria 2-22 Give with l 03:00: food. Raul 00 (Same As: Coreg) Lexapro 2022-0 No 20 mg, 2 Memori a 2-22 tab, l 03:00: Route: PO, Drug form: TAB, Q12H, Dosing Weight 86.364, kg, Start date: 11/21/22 21:00:00 SUPERVISOR TYPE [employer]OL, Duration: 30 day, Stop date: 12/21/22 9:00:00 CDT, 0 Pepcid 40 2022-0 No Notes: Memori a mg oral 2-22 (Same as: l tablet 03:00: Pepcid) lovastatin 2022-0 No 20 mg, 1 Mem oria 2-22 tab, l 03:00: Route: PO, Drug form: TAB, Bedtime, Dosing Weight 86.364, kg, Start date: 11/21/22 21:00:00 SUPERVISOR TYPE [employer] QUALITY [employer]OL, Duration: 30 day, Stop date: 12/20/22 21:00:00 CDT primidone 2022-0 No 50 mg, 1 Jose Francisco zhang 2-22 tab, l 03:00: Route: PO, Drug form: TAB, Bedtime, Dosing Weight 86.364, kg, Start date: 11/21/22 21:00:00 SUPERVISOR TYPE [employer] QUALITY CONTROL, Duration: 30 day, Stop date: 12/20/22 21:00:00 CDT, 0 rOPINIRole 2022-0 No 4 mg, 2 Jose Francisco zhang 2-22 tab, l 03:00: Route: PO, Drug form: TAB, Q12H, Dosing Weight 86.364, kg, Start date: 11/21/22 21:00:00 SUPERVISOR TYPE [employer]AL[employer]OL, Duration: 30 day, Stop date: 12/21/22 9:00:00 CDT, 0 Lipitor 2022-0 No Notes: Memoria 2-22 (Same As: l 03:00: Lipitor) Robaxin 2022-0 No Notes: Memoria 2-22 (Same l 00:27: as:Robaxin ) Robaxin 2022-0 No Notes: Memoria 2-22 (Same l 00:27: as:Robaxin ) Robaxin 2022-0 No Notes: Memoria 2-22 (Same l 00:27: as:Robaxin ) Robaxin 2022-0 No Notes: Memoria 2-22 (Same l 00:27: as:Robaxin Secor 00 ) Robaxin 0 No Notes: Memoria 2-22 (Same l 00:27: as:Robaxin Raul 00 ) Robaxin 0 No Notes: Memoria 2-22 (Same l 00:27: as:Robaxin Secor 00 ) Robaxin 0 No Notes: Memoria 2-22 (Same l 00:27: as:Robaxin Raul ) Robaxin 0 No Notes: Memoria 2-22 (Same l 00:27: as:Robaxin Secor 00 ) Robaxin 0 No Notes: Memoria 2-22 (Same l 00:27: as:Robaxin Secor ) Tylenol No Notes: Do Memor ia [...] Total Volume: 1,000, Start date: 11/21/22 16:13:00 SUPERVISOR TYPE [employer], Duration: 30 day, Stop date: 12/21/22 16:12:00 CDT, BSA: 1.93 m2, 0 normal 2023-0 No 1,000 mL, Memori a saline 0.9% 2-21 Rate: 75 l IV 1,000 mL 22:13: ml/hr, Herm bernie 00 Infuse over: 13.3 hr, Route: IV, Dosing Weight 86.364 kg, Total Volume: 1,000, Start date: 11/21/22 16:13:00 SUPERVISOR TYPE [employer]AL[employer]OL, Duration: 30 day, Stop date: 12/21/22 16:12:00 CDT, BSA: 1.93 m2, 0 normal 2023-0 No 1,000 mL, Memori a saline 0.9% 2-21 Rate: 75 l IV 1,000 mL 22:13: ml/hr, Herm bernie 00 Infuse over: 13.3 hr, Route: IV, Dosing Weight 86.364 kg, Total Volume: 1,000, Start date: 11/21/22 16:13:00 SUPERVISOR TYPE [employer] QUALITY CONTROL, Duration: 30 day, Stop date: 12/21/22 16:12:00 CDT, BSA: 1.93 m2, 0 normal 2023-0 No 1,000 mL, Memori a saline 0.9% 2-21 Rate: 75 l IV 1,000 mL 22:13: ml/hr, Herm bernie 00 Infuse over: 13.3 hr, Route: IV, Dosing Weight 86.364 kg, Total Volume: 1,000, Start date: 11/21/22 16:13:00 SUPERVISOR TYPE [employer] QUALITY CONTROL, Duration: 30 day, Stop date: 12/21/22 16:12:00 CDT, BSA: 1.93 m2, 0 normal 2023-0 No 1,000 mL, Memori a saline 0.9% 2-21 Rate: 75 l IV 1,000 mL 22:13: ml/hr, Herm bernie 00 Infuse over: 13.3 hr, Route: IV, Dosing Weight 86.364 kg, Total Volume: 1,000, Start date: 11/21/22 16:13:00 SUPERVISOR TYPE [employer] QUALITY [employer]OL, Duration: 30 day, Stop date: 12/21/22 16:12:00 CDT, BSA: 1.93 m2, 0 normal 2023-0 No 1,000 mL, Memori a saline 0.9% 2-21 Rate: 75 l IV 1,000 mL 22:13: ml/hr, Herm bernie 00 Infuse over: 13.3 hr, Route: IV, Dosing Weight 86.364 kg, Total Volume: 1,000, Start date: 11/21/22 16:13:00 SUPERVISOR TYPE [employer]K QUALITY CONTROL, Duration: 30 day, Stop date: 12/21/22 16:12:00 CDT, BSA: 1.93 m2, 0 normal 2023-0 No 1,000 mL, Memori a saline 0.9% 2-21 Rate: 75 l IV 1,000 mL 22:13: ml/hr, Herm bernie 00 Infuse over: 13.3 hr, Route: IV, Dosing Weight 86.364 kg, Total Volume: 1,000, Start date: 11/21/22 16:13:00 SUPERVISOR TYPE [employer] QUALITY [employer]OL, Duration: 30 day, Stop date: 12/21/22 16:12:00 CDT, BSA: 1.93 m2, 0 normal 2023-0 No 1,000 mL, Memori a saline 0.9% 2-21 Rate: 75 l IV 1,000 mL 22:13: ml/hr, Herm bernie 00 Infuse over: 13.3 hr, Route: IV, Dosing Weight 86.364 kg, Total Volume: 1,000, Start date: 11/21/22 16:13:00 SUPERVISOR TYPE [employer] QUALITY CONTROL, Duration: 30 day, Stop date: 12/21/22 16:12:00 CDT, BSA: 1.93 m2, 0 normal 2023-0 No 1,000 mL, Memori a saline 0.9% 2-21 Rate: 75 l IV 1,000 mL 22:13: ml/hr, Herm bernie 00 Infuse over: 13.3 hr, Route: IV, Dosing Weight 86.364 kg, Total Volume: 1,000, Start date: 11/21/22 16:13:00 SUPERVISOR TYPE [employer]AL[employer]OL, Duration: 30 day, Stop date: 12/21/22 16:12:00 CDT, BSA: 1.93 m2, 0 Vitamin D2 2023-0 Yes 50,000 Memor ia 50,000 intl 2-21 IntlUnit = l units (1.25 18:29: 1 cap, PO, Secor mg) oral 00 qWeek, capsule then 1 [...] l units (1.25 18:29: 1 cap, PO, Secor mg) oral 00 qWeek, capsule then 1 [...] l units (1.25 18:29: 1 cap, PO, Secor mg) oral 00 qWeek, capsule then 1 cap qmonth, 0 Refill(s) Voltaren 0 Yes 2 gm, TOP, Mem oria Topical 1% 2-21 QID, PRN, l topical gel 18:29: 0 Ajay n 00 Refill(s) Vitamin D2 Yes 50,000 Memor ia 50,000 intl 2-21 IntlUnit = l units (1.25 18:29: 1 cap, PO, Secor mg) oral 00 qWeek, capsule then 1 cap qmonth, 0 Refill(s) Voltaren 0 Yes 2 gm, TOP, Mem oria Topical 1% 2-21 QID, PRN, l topical gel 18:29: 0 Ajay n 00 Refill(s) Vitamin D2 Yes 50,000 Memor ia 50,000 intl 2-21 IntlUnit = l units (1.25 18:29: 1 cap, PO, Secor mg) oral 00 qWeek, capsule then 1 cap qmonth, 0 Refill(s) Voltaren 0 Yes 2 gm, TOP, Mem oria Topical 1% 2-21 QID, PRN, l topical gel 18:29: 0 Ajay n 00 Refill(s) Vitamin D2 Yes 50,000 Memor ia 50,000 intl 2-21 IntlUnit = l units (1.25 18:29: 1 cap, PO, Secor mg) oral 00 qWeek, capsule then 1 cap qmonth, 0 Refill(s) Voltaren 0 Yes 2 gm, TOP, Mem oria Topical 1% 2-21 QID, PRN, l topical gel 18:29: 0 Ajay n 00 Refill(s) Vitamin D2 Yes 50,000 Memor ia 50,000 intl 2-21 IntlUnit = l units (1.25 18:29: 1 cap, PO, Secor mg) oral 00 qWeek, capsule then 1 [...] gel 18:29: 0 Ajay n 00 Refill(s) fluocinonid 2022-0 Yes 1 appl, Mem oria e topical 2-21 TOP, BID, l 0.05% 18:28: 0 Secor solution 00 Refill(s) ketoconazol 2022-0 Yes 1 appl, Mem oria e topical 2-21 TOP, BID, l 2% cream 18:28: 0 Secor 00 Refill(s) halobetasol 2022-0 Yes 1 appl, Mem oria topical 2-21 TOP, BID, l 0.05% cream 18:28: PRN, 0 Herm bernie 00 Refill(s) fluocinonid 2022-0 Yes 1 appl, Mem oria e topical 2-21 TOP, BID, l 0.05% 18:28: 0 Raul solution 00 Refill(s) ketoconazol 2022-0 Yes 1 appl, Mem oria e topical 2-21 TOP, BID, l 2% cream 18:28: 0 Secor 00 Refill(s) halobetasol 3-0 Yes 1 appl, Mem oria topical 2-21 TOP, BID, l 0.05% cream 18:28: PRN, 0 Herm bernie 00 Refill(s) fluocinonid 3-0 Yes 1 appl, Mem oria e topical 2-21 TOP, BID, l 0.05% 18:28: 0 Secor solution 00 Refill(s) ketoconazol 3-0 Yes 1 [...] 2-21 TOP, BID, l 0.05% 18:28: 0 Secor solution 00 Refill(s) ketoconazol 2022-0 Yes 1 appl, Mem oria e topical 2-21 TOP, BID, l 2% cream 18:28: 0 Secor 00 Refill(s) halobetasol 2022-0 Yes 1 appl, Mem oria topical 2-21 TOP, BID, l 0.05% cream 18:28: PRN, 0 Herm bernie 00 Refill(s) fluocinonid 3-0 Yes 1 appl, Mem oria e topical 2-21 TOP, BID, l 0.05% 18:28: 0 Secor solution 00 Refill(s) ketoconazol 3-0 Yes 1 appl, Mem oria e topical 2-21 TOP, BID, l 2% cream 18:28: 0 Secor 00 Refill(s) halobetasol 3-0 Yes 1 appl, Mem oria topical 2-21 TOP, BID, l 0.05% cream 18:28: PRN, 0 Herm bernie 00 Refill(s) fluocinonid 3-0 Yes 1 appl, Mem oria e topical 2-21 TOP, BID, l 0.05% 18:28: 0 Secor solution 00 Refill(s) ketoconazol 2023-0 Yes 1 appl, Mem oria e topical 2-21 TOP, BID, l 2% cream 18:28: 0 Secor 00 Refill(s) halobetasol 2023-0 Yes 1 appl, [...] 2-21 TOP, BID, l 0.05% 18:28: 0 Secor solution 00 Refill(s) ketoconazol 3-0 Yes 1 appl, Mem oria e topical 2-21 TOP, BID, l 2% cream 18:28: 0 Secor 00 Refill(s) halobetasol 3-0 Yes 1 appl, Mem oria topical 2-21 TOP, BID, l 0.05% cream 18:28: PRN, 0 Herm bernie 00 Refill(s) fluocinonid 2023-0 Yes 1 appl, Mem oria e topical 2-21 TOP, BID, l 0.05% 18:28: 0 Raul solution 00 Refill(s) ketoconazol 2023-0 Yes 1 appl, Mem oria e topical 2-21 TOP, BID, l 2% cream 18:28: 0 Secor 00 Refill(s) halobetasol 2023-0 Yes 1 appl, [...] 2-21 tab, PO, l 18:27: Daily, 0 Secor 00 Refill(s) Pepcid 40 2022-0 Yes 40 [...] 2-21 tab, PO, l 18:27: Daily, 0 Secor 00 Refill(s) Pepcid 40 3-0 Yes 40 mg = 1 Mem oria [...] 2-21 tab, PO, l 18:27: Daily, 0 Secor 00 Refill(s) Pepcid 40 0 Yes 40 mg = 1 Mem oria [...] 2-21 tab, PO, l 18:27: Daily, 0 Secor 00 Refill(s) Pepcid 40 2022-0 Yes 40 [...] 2-21 tab, PO, l 18:27: Daily, 0 Secor 00 Refill(s) Pepcid 40 2022-0 Yes 40 [...] PO, Daily, 0 Refill(s) Lasix 80 mg 2023-0 Yes 80 mg = 1 M emoria oral tablet 2-21 tab, PO, l 18:27: Daily, 0 Secor 00 Refill(s) Pepcid 40 2022-0 Yes 40 [...] 2-21 tab, PO, l 18:27: Daily, 0 Secor 00 Refill(s) Pepcid 40 2022-0 Yes 40 [...] 2-21 tab, PO, l 18:27: Daily, 0 Secor 00 Refill(s) Pepcid 40 2022-0 Yes 40 [...] 2-21 tab, PO, l 18:27: Daily, 0 Secor 00 Refill(s) Pepcid 40 2022-0 Yes 40 [...] tab, PO, l tablet 18:26: Daily, 0 Secor 00 Refill(s) lovastatin 0 Yes 20 mg = 1 Me moria 20 mg oral 2-21 tab, PO, l tablet 18:26: Daily, 0 Secor 00 Refill(s) donepezil 0 Yes 10 mg [...] tab, PO, l tablet 18:26: Daily, 0 Secor 00 Refill(s) lovastatin 2022-0 Yes 20 mg = 1 Me moria 20 mg oral 2-21 tab, PO, l tablet 18:26: Daily, 0 Raul 00 Refill(s) donepezil 2022-0 Yes 10 mg = 1 Mem oria 10 mg oral 2-21 tab, PO, l tablet 18:26: Daily, 0 Secor 00 Refill(s) NIFEdipine 2022-0 Yes 30 mg = 1 Me moria (Eqv-Procar 2-21 tab, PO, l afua XL) 30 18:26: Daily, 0 Her ivory mg oral 00 Refill(s) tablet, extended release Kerendia 10 Yes 10 mg = 1 M emoria mg oral 2-21 tab, PO, l tablet 18:26: Daily, 0 Secor 00 Refill(s) lovastatin 2022-0 Yes 20 mg = 1 Me moria 20 mg oral 2-21 tab, PO, l tablet 18:26: Daily, 0 Secor 00 Refill(s) donepezil 2022-0 Yes 10 mg [...] tab, PO, l tablet 18:26: Daily, 0 Secor 00 Refill(s) donepezil 2022-0 Yes 10 mg = 1 Mem oria 10 mg oral 2-21 tab, PO, l tablet 18:26: Daily, 0 Secor 00 Refill(s) NIFEdipine 2022-0 Yes 30 mg = 1 Me moria (Eqv-Procar 2-21 tab, PO, l afua XL) 30 18:26: Daily, 0 Her ivory mg oral 00 Refill(s) tablet, extended release Kerendia 10 0 Yes 10 mg = 1 M emoria mg oral 2-21 tab, PO, l tablet 18:26: Daily, 0 Secor 00 Refill(s) lovastatin 2022-0 Yes 20 mg = 1 Me moria 20 mg oral 2-21 tab, PO, l tablet 18:26: Daily, 0 Raul 00 Refill(s) donepezil 2022-0 Yes 10 mg = 1 Mem oria 10 mg oral 2-21 tab, PO, l tablet 18:26: Daily, 0 Secor 00 Refill(s) NIFEdipine 2023-0 Yes 30 mg = 1 Me moria (Eqv-Procar 2-21 tab, PO, l afua XL) 30 18:26: Daily, 0 Her ivory mg oral 00 Refill(s) tablet, extended release Kerendia 10 Yes 10 mg = 1 M emoria mg oral 2-21 tab, PO, l tablet 18:26: Daily, 0 Secor 00 Refill(s) lovastatin 2022-0 Yes 20 mg [...] tab, PO, l tablet 18:26: Daily, 0 Secor 00 Refill(s) lovastatin 2022-0 Yes 20 mg = 1 Me moria 20 mg oral 2-21 tab, PO, l tablet 18:26: Daily, 0 Secor 00 Refill(s) donepezil 2022-0 Yes 10 mg [...] tab, PO, l tablet 18:26: Daily, 0 Secor 00 Refill(s) NIFEdipine 2022-0 Yes 30 mg [...] tab, PO, l tablet 18:26: Daily, 0 Secor 00 Refill(s) donepezil 2022-0 Yes 10 mg [...] tab, PO, l tablet 18:26: Daily, 0 Secor 00 Refill(s) lovastatin 2022-0 Yes 20 mg = 1 Me moria 20 mg oral 2-21 tab, PO, l tablet 18:26: Daily, 0 Secor 00 Refill(s) Coreg 25 mg 2023-0 Yes 25 mg = 1 M emoria oral tablet 2-21 tab, PO, l 18:25: BID, 0 Secor 00 Refill(s) Lexapro 20 2023-0 Yes 20 mg = 1 Me moria mg oral 2-21 tab, PO, l tablet 18:25: BID, 0 Raul 00 Refill(s) rOPINIRole 2023-0 Yes 4 mg = 1 Mem oria 4 mg oral 2-21 tab, PO, l tablet 18:25: BID, 0 Secor 00 Refill(s) Coreg 25 mg 2023-0 Yes 25 mg = 1 M emoria oral tablet 2-21 tab, PO, l 18:25: BID, 0 Raul 00 Refill(s) Lexapro 20 2023-0 Yes 20 mg = 1 Me moria mg oral 2-21 tab, PO, l tablet 18:25: BID, 0 Secor 00 Refill(s) rOPINIRole 2023-0 Yes 4 mg = 1 Mem oria 4 mg oral 2-21 tab, PO, l tablet 18:25: BID, 0 Secor 00 Refill(s) Coreg 25 mg 2023-0 Yes 25 mg = 1 M emoria oral tablet 2-21 tab, PO, l 18:25: BID, 0 Secor 00 Refill(s) Lexapro 20 2023-0 Yes 20 mg = 1 Me moria mg oral 2-21 tab, PO, l tablet 18:25: BID, 0 Raul 00 Refill(s) rOPINIRole 2023-0 Yes 4 mg = 1 Mem oria 4 mg oral 2-21 tab, PO, l tablet 18:25: BID, 0 Secor 00 Refill(s) Coreg 25 mg 2023-0 Yes [...] tab, PO, l tablet 18:25: BID, 0 Secor 00 Refill(s) Coreg 25 mg 2023-0 Yes 25 mg = 1 M emoria oral tablet 2-21 tab, PO, l 18:25: BID, 0 Secor 00 Refill(s) Lexapro 20 2023-0 Yes 20 mg = 1 Me moria mg oral 2-21 tab, PO, l tablet 18:25: BID, 0 Secor 00 Refill(s) rOPINIRole 2023-0 Yes 4 mg [...] tab, PO, l tablet 18:25: BID, 0 Secor 00 Refill(s) Coreg 25 mg 2023-0 Yes 25 mg = 1 M emoria oral tablet 2-21 tab, PO, l 18:25: BID, 0 Secor 00 Refill(s) Lexapro 20 2023-0 Yes 20 mg = 1 Me moria mg oral 2-21 tab, PO, l tablet 18:25: BID, 0 Secor 00 Refill(s) rOPINIRole 2023-0 Yes 4 mg = 1 Mem oria 4 mg oral 2-21 tab, PO, l tablet 18:25: BID, 0 Raul 00 Refill(s) Coreg 25 mg 2023-0 Yes 25 mg = 1 M emoria oral tablet 2-21 tab, PO, l 18:25: BID, 0 Secor 00 Refill(s) Lexapro 20 2023-0 Yes 20 [...] tab, PO, l tablet 18:25: BID, 0 Secor 00 Refill(s) rOPINIRole 2023-0 Yes 4 mg = 1 Mem oria 4 mg oral 2-21 tab, PO, l tablet 18:25: BID, 0 Secor 00 Refill(s) Coreg 25 mg 2023-0 Yes [...] tab, PO, l tablet 18:25: BID, 0 Secor 00 Refill(s) Coreg 25 mg 2023-0 Yes 25 mg = 1 M emoria oral tablet 2-21 tab, PO, l 18:25: BID, 0 Raul 00 Refill(s) Lexapro 20 2023-0 Yes 20 mg = 1 Me moria mg oral 2-21 tab, PO, l tablet 18:25: BID, 0 Secor 00 Refill(s) rOPINIRole 2023-0 Yes 4 mg = 1 Mem oria 4 mg oral 2-21 tab, PO, l tablet 18:25: BID, 0 Secor 00 Refill(s) pantoprazol 2023-0 Yes 40 mg [...] tab, PO, l oral 18:24: BID, 0 Secor enteric 00 Refill(s) coated tablet pantoprazol 2023-0 Yes 40 mg = 1 M emoria e 40 mg 2-21 tab, PO, l oral 18:24: BID, 0 Raul enteric 00 Refill(s) coated tablet pantoprazol 2023-0 Yes 40 mg = 1 M emoria e 40 mg 2-21 tab, PO, l oral 18:24: BID, 0 Secor enteric 00 Refill(s) coated tablet pantoprazol 2023-0 Yes 40 mg = 1 M emoria e 40 mg 2-21 tab, PO, l oral 18:24: BID, 0 Raul enteric 00 Refill(s) coated tablet pantoprazol 2023-0 Yes 40 mg = 1 M emoria e 40 mg 2-21 tab, PO, l oral 18:24: BID, 0 Secor enteric 00 Refill(s) coated tablet pantoprazol 2023-0 Yes 40 mg = 1 M emoria e 40 mg 2-21 tab, PO, l oral 18:24: BID, 0 Secor enteric 00 Refill(s) coated tablet pantoprazol 2023-0 Yes 40 mg = 1 M emoria e 40 mg 2-21 tab, PO, l oral 18:24: BID, 0 Secor enteric 00 Refill(s) coated tablet pantoprazol 2023-0 Yes 40 mg = 1 M emoria e 40 mg 2-21 tab, PO, l oral 18:24: BID, 0 Secor enteric 00 Refill(s) coated tablet pantoprazol 2023-0 [...] am 2- Same as l 15:00: Declan Raul MEDICATION WASTE Product Size: 500 mg Product Wasted: ___ mg docusate No Notes: Memoria 2-21 (Same as: l 15:00: Colace) Secor 00 (Do Not Crush) senna No Notes: Memoria 2-21 (Same as: l 15:00: Senokot) Raul 00 lidocaine No Notes: Memori a topical 2-21 Patch is l 15:00: applied to Secor 00 intact skin to cover painful area for up to 12 hours in a 24-hour period (12 hours on and 12 hours off). Please indicate the location of applicatio n site. Site 1: Remove old patch before applicatio n of new patch. (Same as Aspercreme Lidocaine Patch) Saline No Notes: Memoria Flush 0.9% 2-21 (Same as: l 15:00: BD Secor 00 Posiflush) levETIRAcet No Notes: Jose Francisco zhang am 2-21 Same as l 15:00: Keppra Raul 00 MEDICATION WASTE Product Size: 500 mg Product Wasted: ___ mg docusate No Notes: Memoria 2-21 (Same as: l 15:00: Colace) Raul 00 (Do Not Crush) senna No Notes: Memoria 2-21 (Same as: l 15:00: Senokot) Secor 00 lidocaine No Notes: Memori a topical [...] am 2-21 Same as l 15:00: Keppra Secor 00 MEDICATION WASTE Product Size: 500 mg Product Wasted: ___ mg docusate No Notes: Memoria 2-21 (Same as: l 15:00: Colace) Secor 00 (Do Not Crush) senna No Notes: Memoria 2-21 (Same as: l 15:00: Senokot) Secor 00 lidocaine No Notes: Memori a topical [...] 0.9% 2-21 (Same as: l 15:00: BD Arul 00 Posiflush) levETIRAcet No Notes: Jose Francisco zhang am 2-21 Same as l 15:00: Keppra Raul 00 MEDICATION WASTE Product Size: 500 mg Product Wasted: ___ mg docusate No Notes: Memoria 2-21 (Same as: l 15:00: Colace) Secor 00 (Do Not Crush) senna No Notes: Memoria 2-21 (Same as: l 15:00: Senokot) Secor 00 lidocaine No Notes: Memori a topical [...] 0.9% 2-21 (Same as: l 15:00: BD Secor 00 Posiflush) levETIRAcet No Notes: Jose Francisco zhang am 2-21 Same as l 15:00: Keppra Raul 00 MEDICATION WASTE Product Size: 500 mg Product Wasted: ___ mg docusate No Notes: Memoria 2-21 (Same as: l 15:00: Colace) Secor 00 (Do Not Crush) senna No Notes: Memoria 2-21 (Same as: l 15:00: Senokot) Secor 00 lidocaine No Notes: Memori a topical 2-21 Patch is l 15:00: applied to Secor 00 intact skin to cover painful area for up to 12 hours in a 24-hour period (12 hours on and 12 hours off). Please indicate the location of applicatio n site. Site 1: Remove old patch before applicatio n of new patch. (Same as Aspercreme Lidocaine Patch) Saline No Notes: Memoria Flush 0.9% 2-21 (Same as: l 15:00: BD Secor 00 Posiflush) levETIRAcet No Notes: Jose Francisco zhang am 2-21 Same as l 15:00: Keppra Raul 00 MEDICATION WASTE Product Size: 500 mg Product Wasted: ___ mg docusate No Notes: Memoria 2-21 (Same as: l 15:00: Colace) Secor 00 (Do Not Crush) senna No Notes: [...] Memoria 2-21 (Same as: l 15:00: Senokot) Secor 00 lidocaine No Notes: Memori a topical [...] 0.9% 2-21 (Same as: l 15:00: BD Secor 00 Posiflush) levETIRAcet No Notes: Jose Francisco zhang am 2-21 Same as l 15:00: Keppra Secor MEDICATION WASTE Product Size: 500 mg Product Wasted: ___ mg docusate No Notes: Memoria 2-21 (Same as: l 15:00: Colace) Secor (Do Not Crush) senna No Notes: Memoria 2-21 (Same as: l 15:00: Senokot) Secor 00 lidocaine No Notes: Memori a topical 2-21 Patch is l 15:00: applied to Secor 00 intact skin to cover painful area [...] Total Volume: 1,000, Start date: 11/21/22 8:47:00 SUPERVISOR TYPE DISK QUALITY CONTROL, Duration: 30 day, Stop date: 12/21/22 8:46:00 [...] Weight 86.364, kg, Start date: 11/21/22 8:47:00 SUPERVISOR TYPE [employer]K QUALITY CONTROL, Duration: 3 doses or times, Stop date: 11/21/22 9:17:00 SUPERVISOR TYPE DISK QUALITY CONTROL, 0 Saline No Notes: Memoria Flush 0.9% 2-21 (Same as: l 14:47: BD Posiflush) Sodium No 1,000 mL, Memori a Chloride 2-21 Rate: 50 l 0.9% IV 14:47: ml/hr, Raul 1,000 mL 00 Infuse over: 20 hr, Route: IV, Dosing Weight 86.364 kg, Total Volume: 1,000, Start date: 11/21/22 8:47:00 SUPERVISOR TYPE [employer]K QUALITY CONTROL, Duration: 30 day, Stop date: 12/21/22 8:46:00 [...] Weight 86.364, kg, Start date: 11/21/22 8:47:00 SUPERVISOR TYPE DISK QUALITY CONTROL, Duration: 3 doses or times, Stop date: 11/21/22 9:17:00 SUPERVISOR TYPE DISK QUALITY CONTROL, 0 Saline No Notes: Memoria Flush 0.9% 2-21 (Same as: l 14:47: BD Raul 00 Posiflush) Sodium No 1,000 mL, Memori a Chloride 2-21 Rate: 50 l 0.9% IV 14:47: ml/hr, Raul 1,000 mL 00 Infuse over: 20 hr, Route: IV, Dosing Weight 86.364 kg, Total Volume: 1,000, Start date: 11/21/22 8:47:00 SUPERVISOR TYPE [employer]K QUALITY CONTROL, Duration: 30 day, Stop date: 12/21/22 8:46:00 CDT, BSA: 1.93 m2, 0 acetaminoph No Notes: Do M emoria en 2-21 not exceed l 14:47: 4 gm/day. Raul (Same as: Tylenol) bisacodyl No Notes: Memori a 2-21 (Same As: l 14:47: Dulcolax, Secor 00 Bisco-Lax) ondansetron No Notes: Jose Francisco [...] Weight 86.364, kg, Start date: 11/21/22 8:47:00 SUPERVISOR TYPE DISK QUALITY CONTROL, Duration: 3 doses or times, Stop date: 11/21/22 9:17:00 SUPERVISOR TYPE DISK QUALITY CONTROL, 0 Saline No Notes: Memoria Flush 0.9% 2-21 (Same as: l 14:47: BD Secor 00 Posiflush) Sodium No 1,000 mL, Memori a Chloride 2-21 Rate: 50 l 0.9% IV 14:47: ml/hr, Raul 1,000 mL 00 Infuse over: 20 hr, Route: IV, Dosing Weight 86.364 kg, Total Volume: 1,000, Start date: 11/21/22 8:47:00 SUPERVISOR TYPE DISK QUALITY CONTROL, Duration: 30 day, Stop date: 12/21/22 8:46:00 CDT, BSA: 1.93 m2, 0 acetaminoph No Notes: Do M emoria en 2-21 not exceed l 14:47: 4 gm/day. Secor 00 (Same as: Tylenol) bisacodyl No Notes: [...] Weight 86.364, kg, Start date: 11/21/22 8:47:00 SUPERVISOR TYPE DISK QUALITY CONTROL, Duration: 3 doses or times, Stop date: 11/21/22 9:17:00 SUPERVISOR TYPE DISK QUALITY CONTROL, 0 Saline No Notes: Memoria Flush 0.9% 2-21 (Same as: l 14:47: BD Posiflush) Sodium No 1,000 mL, Memori a Chloride 2-21 Rate: 50 l 0.9% IV 14:47: ml/hr, Secor 1,000 mL 00 Infuse over: 20 hr, Route: IV, Dosing Weight 86.364 kg, Total Volume: 1,000, Start date: 11/21/22 8:47:00 SUPERVISOR TYPE DISK QUALITY CONTROL, Duration: 30 day, Stop date: 12/21/22 8:46:00 CDT, BSA: 1.93 m2, 0 acetaminoph No Notes: Do M emoria en 2-21 not exceed l 14:47: 4 gm/day. Raul 00 (Same as: Tylenol) bisacodyl No Notes: Memori a 2-21 (Same As: l 14:47: Dulcolax, Secor 00 Bisco-Lax) ondansetron No Notes: Jose Francisco [...] Weight 86.364, kg, Start date: 11/21/22 8:47:00 SUPERVISOR TYPE DISK QUALITY CONTROL, Duration: 3 doses or times, Stop date: 11/21/22 9:17:00 SUPERVISOR TYPE DISK QUALITY CONTROL, 0 Saline No Notes: Memoria Flush 0.9% 2-21 (Same as: l 14:47: BD Posiflush) Sodium No 1,000 mL, Memori a Chloride 2-21 Rate: 50 l 0.9% IV 14:47: ml/hr, Secor 1,000 mL 00 Infuse over: 20 hr, Route: IV, Dosing Weight 86.364 kg, Total Volume: 1,000, Start date: 11/21/22 8:47:00 SUPERVISOR TYPE DISK QUALITY CONTROL, Duration: 30 day, Stop date: 12/21/22 8:46:00 [...] Weight 86.364, kg, Start date: 11/21/22 8:47:00 SUPERVISOR TYPE DISK QUALITY CONTROL, Duration: 3 doses or times, Stop date: 11/21/22 9:17:00 SUPERVISOR TYPE DISK QUALITY CONTROL, 0 Saline No Notes: Memoria Flush 0.9% 2-21 (Same as: l 14:47: BD Posiflush) Sodium No 1,000 mL, Memori a Chloride 2-21 Rate: 50 l 0.9% IV 14:47: ml/hr, Raul 1,000 mL 00 Infuse over: 20 hr, Route: IV, Dosing Weight 86.364 kg, Total Volume: 1,000, Start date: 11/21/22 8:47:00 SUPERVISOR TYPE DISK QUALITY CONTROL, Duration: 30 day, Stop date: 12/21/22 8:46:00 [...] Weight 86.364, kg, Start date: 11/21/22 8:47:00 SUPERVISOR TYPE DISK QUALITY CONTROL, Duration: 3 doses or times, Stop date: 11/21/22 9:17:00 SUPERVISOR TYPE DISK QUALITY CONTROL, 0 Saline No Notes: Memoria Flush 0.9% 2-21 (Same as: l 14:47: BD Secor 00 Posiflush) Sodium No 1,000 mL, Memori a Chloride 2-21 Rate: 50 l 0.9% IV 14:47: ml/hr, Secor 1,000 mL 00 Infuse over: 20 hr, Route: IV, Dosing Weight 86.364 kg, Total Volume: 1,000, Start date: 11/21/22 8:47:00 SUPERVISOR TYPE DISK QUALITY CONTROL, Duration: 30 day, Stop date: 12/21/22 8:46:00 CDT, BSA: 1.93 m2, 0 acetaminoph No Notes: Do M emoria en 2-21 not exceed l 14:47: 4 gm/day. Secor 00 (Same as: Tylenol) bisacodyl No Notes: [...] Weight 86.364, kg, Start date: 11/21/22 8:47:00 SUPERVISOR TYPE DISK QUALITY CONTROL, Duration: 3 doses or times, Stop date: 11/21/22 9:17:00 SUPERVISOR TYPE DISK QUALITY CONTROL, 0 Saline No Notes: Memoria Flush 0.9% 2-21 (Same as: l 14:47: BD Raul 00 Posiflush) Sodium No 1,000 mL, Memori a Chloride 2-21 Rate: 50 l 0.9% IV 14:47: ml/hr, Raul 1,000 mL 00 Infuse over: 20 hr, Route: IV, Dosing Weight 86.364 kg, Total Volume: 1,000, Start date: 11/21/22 8:47:00 SUPERVISOR TYPE DISK QUALITY CONTROL, Duration: 30 day, Stop date: 12/21/22 8:46:00 [...] Weight 86.364, kg, Start date: 11/21/22 8:47:00 SUPERVISOR TYPE DISK QUALITY CONTROL, Duration: 3 doses or times, Stop date: 11/21/22 9:17:00 SUPERVISOR TYPE DISK QUALITY CONTROL, 0 Saline 0 No Notes: Memoria Flush 0.9% 2-21 (Same as: l 14:47: BD Posiflush) Tylenol No 1,000 mg, Memor ia 2-21 Route: PO, l 14:03: ONCE, Dosing Weight 86.364, kg, Start date: 11/21/22 8:03:00 SUPERVISOR TYPE DISK QUALITY CONTROL, Stop date: 11/21/22 8:03:00 SUPERVISOR TYPE DISK QUALITY CONTROL Tylenol 0 No 1,000 mg, Memor ia 2-21 Route: PO, l 14:03: ONCE, Dosing Weight 86.364, kg, Start date: 11/21/22 8:03:00 SUPERVISOR TYPE DISK QUALITY CONTROL, Stop date: 11/21/22 8:03:00 SUPERVISOR TYPE DISK QUALITY CONTROL Tylenol 2023-0 No 1,000 mg, Memor ia 2-21 Route: PO, l 14:03: ONCE, Dosing Weight 86.364, kg, Start date: 11/21/22 8:03:00 SUPERVISOR TYPE DISK QUALITY CONTROL, Stop date: 11/21/22 8:03:00 SUPERVISOR TYPE DISK QUALITY CONTROL Tylenol 2023-0 No 1,000 mg, Memor ia 2-21 Route: PO, l 14:03: ONCE, Dosing Weight 86.364, kg, Start date: 11/21/22 8:03:00 SUPERVISOR TYPE DISK QUALITY CONTROL, Stop date: 11/21/22 8:03:00 SUPERVISOR TYPE DISK QUALITY CONTROL Tylenol 2023-0 No 1,000 mg, Memor ia 2-21 Route: PO, l 14:03: ONCE, Dosing Weight 86.364, kg, Start date: 11/21/22 8:03:00 SUPERVISOR TYPE DISK QUALITY CONTROL, Stop date: 11/21/22 8:03:00 SUPERVISOR TYPE DISK QUALITY CONTROL Tylenol 2023-0 No 1,000 mg, Memor ia 2-21 Route: PO, l 14:03: ONCE, Dosing Weight 86.364, kg, Start date: 11/21/22 8:03:00 SUPERVISOR TYPE DISK QUALITY CONTROL, Stop date: 11/21/22 8:03:00 SUPERVISOR TYPE DISK QUALITY CONTROL Tylenol 2023-0 No 1,000 mg, Memor ia 2-21 Route: PO, l 14:03: ONCE, Dosing Weight 86.364, kg, Start date: 11/21/22 8:03:00 SUPERVISOR TYPE DISK QUALITY CONTROL, Stop date: 11/21/22 8:03:00 SUPERVISOR TYPE DISK QUALITY CONTROL Tylenol 2023-0 No 1,000 mg, Memor ia 2-21 Route: PO, l 14:03: ONCE, Dosing Weight 86.364, kg, Start date: 11/21/22 8:03:00 SUPERVISOR TYPE DISK QUALITY CONTROL, Stop date: 11/21/22 8:03:00 SUPERVISOR TYPE DISK QUALITY CONTROL Tylenol 2023-0 No 1,000 mg, Memor ia 2-21 Route: PO, l 14:03: ONCE, Dosing Weight 86.364, kg, Start date: 11/21/22 8:03:00 SUPERVISOR TYPE DISK QUALITY CONTROL, Stop date: 11/21/22 8:03:00 SUPERVISOR TYPE DISK QUALITY CONTROL Saline 2023-0 No Notes: Memoria Flush 0.9% 2-21 (Same as: l 12:05: BD Secor 00 Posiflush) Saline No Notes: Memoria Flush 0.9% 2-21 (Same as: l 12:05: BD Raul 00 Posiflush) Saline No Notes: Memoria Flush 0.9% 2-21 (Same as: l 12:05: BD Secor 00 Posiflush) Saline No Notes: Memoria Flush 0.9% 2-21 (Same as: l 12:05: BD Raul 00 Posiflush) Saline No Notes: Memoria Flush 0.9% 2-21 (Same as: l 12:05: BD Raul 00 Posiflush) Saline No Notes: Memoria Flush 0.9% 2-21 (Same as: l 12:05: BD Secor 00 Posiflush) Saline No Notes: Memoria Flush 0.9% 2-21 (Same as: l 12:05: BD Raul 00 Posiflush) Saline No Notes: Memoria Flush 0.9% 2-21 (Same as: l 12:05: BD Secor 00 Posiflush) Saline No Notes: Memoria Flush 0.9% 2-21 (Same as: l 12:05: BD Secor 00 Posiflush) albuterol 2021-10 No 5mg 5 [...] nn 00 90 tab, 2 Refill(s), Pharmacy: [facility][id number], 149.86, cm, 11/02/21 14:32:00 SUPERVISOR TYPE DISK QUALITY CONTROL, Height, 90.455, kg, 11/02/21 14:32:00 SUPERVISOR TYPE DISK QUALITY CONTROL, Weight primidone 2022-0 Yes 50 mg = 1 Mem oria 50 mg oral 2-02 tab, PO, l tablet 20:46: Bedtime, # Jessie nn 00 90 tab, 2 Refill(s), Pharmacy: [id number], 149.86, cm, 11/02/21 14:32:00 SUPERVISOR TYPE DISK QUALITY CONTROL, Height, 90.455, kg, 11/02/21 14:32:00 SUPERVISOR TYPE DISK QUALITY CONTROL, Weight primidone 2022-0 Yes 50 mg = 1 Mem oria 50 mg oral 2-02 tab, PO, l tablet 20:46: Bedtime, # Jessie nn 00 90 tab, 2 Refill(s), Pharmacy: [id number], 149.86, cm, 11/02/21 14:32:00 SUPERVISOR TYPE DISK QUALITY CONTROL, Height, 90.455, kg, 11/02/21 14:32:00 SUPERVISOR TYPE DISK QUALITY CONTROL, Weight primidone 2022-0 Yes 50 mg = 1 Mem oria 50 mg oral 2-02 tab, PO, l tablet 20:46: Bedtime, # Jessie nn 00 90 tab, 2 Refill(s), Pharmacy: [facility] #[id number], 149.86, cm, 11/02/21 14:32:00 SUPERVISOR TYPE DISK QUALITY CONTROL, Height, 90.455, kg, 11/02/21 14:32:00 SUPERVISOR TYPE DISK QUALITY CONTROL, Weight primidone 2022-0 Yes 50 mg = 1 Mem oria 50 mg oral 2-02 tab, PO, l tablet 20:46: Bedtime, # Jessie nn 00 90 tab, 2 Refill(s), Pharmacy: [id number], 149.86, cm, 11/02/21 14:32:00 SUPERVISOR TYPE DISK QUALITY CONTROL, Height, 90.455, kg, 11/02/21 14:32:00 SUPERVISOR TYPE DISK QUALITY CONTROL, Weight primidone 2022-0 Yes 50 mg = 1 Mem oria 50 mg oral 2-02 tab, PO, l tablet 20:46: Bedtime, # Jessie nn 00 90 tab, 2 Refill(s), Pharmacy: [facility] #[id number], 149.86, cm, 11/02/21 14:32:00 SUPERVISOR TYPE DISK QUALITY CONTROL, Height, 90.455, kg, 11/02/21 14:32:00 SUPERVISOR TYPE DISK QUALITY CONTROL, Weight primidone 2022-0 Yes 50 mg = 1 Mem oria 50 mg oral 2-02 tab, PO, l tablet 20:46: Bedtime, # Jessie nn 00 90 tab, 2 Refill(s), Pharmacy: [id number], 149.86, cm, 11/02/21 14:32:00 SUPERVISOR TYPE DISK QUALITY CONTROL, Height, 90.455, kg, 11/02/21 14:32:00 SUPERVISOR TYPE DISK QUALITY CONTROL, Weight primidone 2022-0 Yes 50 mg = 1 Mem oria 50 mg oral 2-02 tab, PO, l tablet 20:46: Bedtime, # Jessie nn 00 90 tab, 2 Refill(s), Pharmacy: [facility] #[id number], 149.86, cm, 11/02/21 14:32:00 SUPERVISOR TYPE DISK QUALITY CONTROL, Height, 90.455, kg, 11/02/21 14:32:00 SUPERVISOR TYPE DISK QUALITY CONTROL, Weight primidone 2022-0 Yes 50 mg = 1 Mem oria 50 mg oral 2-02 tab, PO, l tablet 20:46: Bedtime, # Jessie nn 00 90 tab, 2 Refill(s), Pharmacy: [facility] #[id number], 149.86, cm, 11/02/21 14:32:00 SUPERVISOR TYPE DISK QUALITY CONTROL, Height, 90.455, kg, 11/02/21 14:32:00 SUPERVISOR TYPE DISK QUALITY CONTROL, Weight primidone 2022-0 Yes 50 mg = 1 Mem oria 50 mg oral 2-02 tab, PO, l tablet 20:46: Bedtime, # Jessie nn 00 90 tab, 2 Refill(s), Pharmacy: [facility] #[id number], 149.86, cm, 11/02/21 14:32:00 SUPERVISOR TYPE DISK QUALITY CONTROL, Height, 90.455, kg, 11/02/21 14:32:00 SUPERVISOR TYPE DISK QUALITY CONTROL, Weight primidone 2022-0 Yes 50 mg = 1 Mem oria 50 mg oral 2-02 tab, PO, l tablet 20:46: Bedtime, # Jessie nn 00 90 tab, 2 Refill(s), Pharmacy: [facility] #[id number], 149.86, cm, 11/02/21 14:32:00 SUPERVISOR TYPE DISK QUALITY CONTROL, Height, 90.455, kg, 11/02/21 14:32:00 SUPERVISOR TYPE DISK QUALITY CONTROL, Weight primidone 2022-0 Yes 50 mg = 1 Mem oria 50 mg oral 2-02 tab, PO, l tablet 20:46: Bedtime, # Jessie nn 00 90 tab, 2 Refill(s), Pharmacy: [facility] #[id number], 149.86, cm, 11/02/21 14:32:00 SUPERVISOR TYPE DISK QUALITY CONTROL, Height, 90.455, kg, 11/02/21 14:32:00 SUPERVISOR TYPE DISK QUALITY CONTROL, Weight primidone 0 Yes 50 mg = 1 Mem oria 50 mg oral 2-02 tab, PO, l tablet 20:46: Bedtime, # Jessie nn 00 90 tab, 2 Refill(s), Pharmacy: [facility] #[id number], 149.86, cm, 11/02/21 14:32:00 SUPERVISOR TYPE DISK QUALITY CONTROL, Height, 90.455, kg, 11/02/21 14:32:00 SUPERVISOR TYPE DISK QUALITY CONTROL, Weight primidone 0 Yes 50 mg = 1 Mem oria 50 mg oral 2-02 tab, PO, l tablet 20:46: Bedtime, # Jessie nn 00 90 tab, 2 Refill(s), Pharmacy: [facility] #[id number], 149.86, cm, 11/02/21 14:32:00 SUPERVISOR TYPE DISK QUALITY CONTROL, Height, 90.455, kg, 11/02/21 14:32:00 SUPERVISOR TYPE DISK QUALITY CONTROL, Weight primidone 0 Yes 50 mg = 1 Mem oria 50 mg oral 2-02 tab, PO, l tablet 20:46: Bedtime, # Jessie nn 00 90 tab, 2 Refill(s), Pharmacy: [facility] #[id number], 149.86, cm, 11/02/21 14:32:00 SUPERVISOR TYPE DISK QUALITY CONTROL, Height, 90.455, kg, 11/02/21 14:32:00 SUPERVISOR TYPE DISK QUALITY CONTROL, Weight primidone 0 Yes 50 mg = 1 Mem oria 50 mg oral 2-02 tab, PO, l tablet 20:46: Bedtime, # Jessie nn 00 90 tab, 2 Refill(s), Pharmacy: [facility] #[id number], 149.86, cm, 11/02/21 14:32:00 SUPERVISOR TYPE DISK QUALITY CONTROL, Height, 90.455, kg, 11/02/21 14:32:00 SUPERVISOR TYPE DISK QUALITY CONTROL, Weight NIFEdipine 0 Yes TAKE 1 Memor ia (Eqv-Adalat 2-02 [...] 2-02 TABLET BY l tablet 20:38: MOUTH Secor 00 EVERY DAY FOR 90 DAYS doxycycline [...] 2-02 TABLET BY l Tablet 20:38: MOUTH Secor 00 EVERY DAY NEEDED FOR SWELLING tramadol Yes TAKE 1 Memoria hydrochlori 2-02 TABLET BY l de 50 MG 20:38: MOUTH Secor Oral Tablet 00 EVERY 6 TO 8 [...] TABLET BY l oral 20:38: MOUTH 2 Secor enteric 00 TIMES coated DAILY HALF tablet HOUR BEFORE BREAKFAST OR FIRST MEAL oxybutynin Yes TAKE 1 Memor ia 5 mg oral 2-02 TABLET BY l tablet 20:38: MOUTH Raul 00 THREE TIMES A DAY NIFEdipine Yes TAKE 1 Memor ia (Eqv-Adalat 2-02 TABLET BY l CC) 30 mg 20:38: MOUTH Secor oral 00 EVERY DAY tablet, ON EMPTY extended STOMACH release FOR 30 DAYS Furosemide Yes TAKE 1 Memor ia 40 MG Oral 2-02 TABLET BY l Tablet 20:38: MOUTH Secor 00 EVERY DAY NEEDED FOR SWELLING tramadol [...] 2-02 TABLET BY l tablet 20:38: MOUTH Secor 00 THREE TIMES A DAY NIFEdipine Yes [...] BY l de 50 MG 20:38: MOUTH Secor Oral Tablet 00 EVERY 6 TO 8 HOURS NEEDED predniSONE Yes TAKE 1 Memor ia 10 mg oral 2-02 TABLET BY l tablet 20:38: MOUTH Raul 00 EVERY DAY FOR 90 DAYS doxycycline Yes TAKE 1 Jose Francisco zhang hyclate 100 2-02 CAPSULE BY l MG Oral 20:38: MOUTH Secor Capsule 00 TWICE A DAY Colestipol Yes [...] 2-02 TABLET BY l tablet 20:38: MOUTH Secor 00 THREE TIMES A DAY NIFEdipine Yes TAKE 1 Memor ia (Eqv-Adalat 2-02 TABLET BY l CC) 30 mg 20:38: MOUTH Secor oral 00 EVERY DAY tablet, ON EMPTY [...] 2-02 TABLET BY l tablet 20:38: MOUTH Secor 00 EVERY DAY FOR 90 DAYS doxycycline [...] 2-02 TABLET BY l tablet 20:38: MOUTH Secor 00 THREE TIMES A DAY NIFEdipine Yes TAKE 1 Memor ia (Eqv-Adalat 2-02 TABLET BY l CC) 30 mg 20:38: MOUTH Raul oral 00 EVERY DAY tablet, ON EMPTY extended STOMACH release FOR 30 DAYS Furosemide Yes TAKE 1 Memor ia 40 MG Oral 2-02 TABLET BY l Tablet 20:38: MOUTH Secor 00 EVERY DAY NEEDED FOR SWELLING tramadol [...] TABLET BY l oral 20:38: MOUTH 2 Secor enteric 00 TIMES coated DAILY HALF tablet HOUR BEFORE BREAKFAST OR FIRST MEAL oxybutynin Yes TAKE 1 [facility] 5 mg oral 2-02 TABLET BY l tablet 20:38: MOUTH Raul 00 THREE TIMES A DAY NIFEdipine Yes TAKE 1 [facility] (Eqv-Adalat 2-02 TABLET BY l CC) 30 mg 20:38: MOUTH Secor oral 00 EVERY DAY tablet, ON EMPTY extended STOMACH release FOR 30 DAYS Furosemide Yes TAKE 1 [facility] 40 MG Oral 2-02 TABLET BY l Tablet 20:38: MOUTH Raul 00 EVERY DAY NEEDED FOR SWELLING tramadol Yes TAKE 1 [facility] hydrochlori 2-02 TABLET BY l de 50 MG 20:38: MOUTH Secor Oral Tablet 00 EVERY 6 TO 8 HOURS NEEDED predniSONE Yes TAKE 1 [facility] 10 mg oral 2-02 TABLET BY l tablet 20:38: MOUTH Secor 00 EVERY DAY FOR 90 DAYS doxycycline Yes TAKE 1 Jose Francisco zhang hyclate 100 2-02 CAPSULE BY l MG Oral 20:38: MOUTH Secor Capsule 00 TWICE A DAY Colestipol Yes TAKE 1 [facility] Hydrochlori 2-02 TABLET BY l de 1000 MG 20:38: MOUTH Ajay n Oral Tablet 00 TWICE A DAY pantoprazol Yes TAKE 1 Jose Francisco zhang e 40 mg 2-02 TABLET BY l oral 20:38: MOUTH 2 Secor enteric 00 TIMES coated DAILY HALF tablet HOUR BEFORE BREAKFAST OR FIRST MEAL oxybutynin Yes TAKE 1 [facility] 5 mg oral 2-02 TABLET BY l tablet 20:38: MOUTH Secor 00 THREE TIMES A DAY NIFEdipine Yes TAKE 1 [facility] (Eqv-Adalat 2-02 TABLET BY l CC) 30 mg 20:38: MOUTH Secor oral 00 EVERY DAY tablet, ON EMPTY extended STOMACH release FOR 30 DAYS Furosemide Yes TAKE 1 [facility] 40 MG Oral 2-02 TABLET BY l Tablet 20:38: MOUTH Raul 00 EVERY DAY NEEDED FOR SWELLING tramadol Yes TAKE 1 [facility] hydrochlori 2-02 TABLET BY l de 50 MG 20:38: MOUTH Secor Oral Tablet 00 EVERY 6 TO 8 HOURS NEEDED predniSONE Yes TAKE 1 [facility] 10 mg oral 2-02 TABLET BY l tablet 20:38: MOUTH Raul 00 EVERY DAY FOR 90 DAYS doxycycline Yes TAKE 1 Jose Francisco zhang hyclate 100 2-02 CAPSULE BY l MG Oral 20:38: MOUTH Secor Capsule 00 TWICE A DAY NIFEdipine Yes TAKE 1 [facility] (Eqv-Adalat 2-02 TABLET BY l CC) 30 mg 20:38: MOUTH Raul oral 00 EVERY DAY tablet, ON EMPTY extended STOMACH release FOR 30 DAYS Furosemide Yes TAKE 1 [facility] 40 MG Oral 2-02 TABLET BY l Tablet 20:38: MOUTH Secor 00 EVERY DAY NEEDED FOR SWELLING tramadol Yes TAKE 1 [facility] hydrochlori 2-02 TABLET BY l de 50 MG 20:38: MOUTH Secor Oral Tablet 00 EVERY 6 TO 8 HOURS NEEDED predniSONE Yes TAKE 1 [facility] 10 mg oral 2-02 TABLET BY l tablet 20:38: MOUTH Secor 00 EVERY DAY FOR 90 DAYS Colestipol Yes TAKE 1 [facility] Hydrochlori 2-02 TABLET BY l de 1000 MG 20:38: MOUTH Ajay n Oral Tablet 00 TWICE A DAY doxycycline Yes TAKE 1 Jose Francisco zhang hyclate 100 2-02 CAPSULE BY l MG Oral 20:38: MOUTH Secor Capsule 00 TWICE A DAY Colestipol Yes TAKE 1 Mem[facility] ia Hydrochlori 2-02 TABLET BY l de 1000 MG 20:38: MOUTH Ajay n Oral Tablet 00 TWICE A DAY pantoprazol Yes TAKE 1 Jose Francisco zhang e 40 mg 2-02 TABLET BY l oral 20:38: MOUTH 2 Secor enteric 00 TIMES coated DAILY HALF tablet [...] 2-02 TABLET BY l tablet 20:38: MOUTH Secor 00 THREE TIMES A DAY NIFEdipine Yes TAKE 1 Mem[facility] ia (Eqv-Adalat 2-02 TABLET BY l CC) 30 mg 20:38: MOUTH Raul oral 00 EVERY DAY tablet, ON EMPTY extended STOMACH release FOR 30 DAYS Furosemide Yes TAKE 1 Memor ia 40 MG Oral 2-02 TABLET BY l Tablet 20:38: MOUTH Secor 00 EVERY DAY NEEDED FOR SWELLING tramadol Yes TAKE 1 Memoria hydrochlori 2-02 TABLET BY l de 50 MG 20:38: MOUTH Secor Oral Tablet 00 EVERY 6 TO 8 HOURS NEEDED predniSONE Yes TAKE 1 Mem[facility] ia 10 mg oral 2-02 TABLET BY l tablet 20:38: MOUTH Secor 00 EVERY DAY FOR 90 DAYS doxycycline [...] 2-02 TABLET BY l tablet 20:38: MOUTH Secor 00 THREE TIMES A DAY NIFEdipine Yes TAKE 1 Mem[facility] ia (Eqv-Adalat 2-02 TABLET BY l CC) 30 mg 20:38: MOUTH Raul oral 00 EVERY DAY tablet, ON EMPTY extended STOMACH release FOR 30 DAYS Furosemide Yes TAKE 1 Memor ia 40 MG Oral 2-02 TABLET BY l Tablet 20:38: MOUTH Secor 00 EVERY DAY NEEDED FOR SWELLING tramadol [...] BY l CC) 30 mg 20:38: MOUTH Secor oral 00 EVERY DAY tablet, ON EMPTY extended STOMACH release FOR 30 DAYS Furosemide Yes TAKE 1 Memor ia 40 MG Oral 2-02 TABLET BY l Tablet 20:38: MOUTH Secor 00 EVERY DAY NEEDED FOR SWELLING tramadol [...] CAPSULE BY l MG Oral 20:38: MOUTH Secor Capsule 00 TWICE A DAY Colestipol Yes [...] 2-02 TABLET BY l tablet 20:38: MOUTH Secor 00 THREE TIMES A DAY NIFEdipine Yes TAKE 1 Mem[facility] ia (Eqv-Adalat 2-02 TABLET BY l CC) 30 mg 20:38: MOUTH Secor oral 00 EVERY DAY tablet, ON EMPTY extended STOMACH release FOR 30 DAYS Furosemide Yes TAKE 1 Memor ia 40 MG Oral 2-02 TABLET BY l Tablet 20:38: MOUTH Secor 00 EVERY DAY NEEDED FOR SWELLING tramadol Yes TAKE 1 Memoria hydrochlori 2-02 TABLET BY l de 50 MG 20:38: MOUTH Secor Oral Tablet 00 EVERY 6 TO 8 HOURS NEEDED predniSONE Yes TAKE 1 Mem[facility] ia 10 mg oral 2-02 TABLET BY l tablet 20:38: MOUTH Secor 00 EVERY DAY FOR 90 DAYS doxycycline Yes TAKE 1 Jose Francisco zhang hyclate 100 2-02 CAPSULE BY l MG Oral 20:38: MOUTH Secor Capsule 00 TWICE A DAY Colestipol Yes [...] 2-02 TABLET BY l tablet 20:38: MOUTH Secor 00 EVERY DAY FOR 90 DAYS doxycycline Yes TAKE 1 Jose Francisco zhang hyclate 100 2-02 CAPSULE BY l MG Oral 20:38: MOUTH Secor Capsule 00 TWICE A DAY Colestipol Yes [...] 2-02 TABLET BY l Tablet 20:38: MOUTH Secor 00 EVERY DAY NEEDED FOR SWELLING tramadol Yes TAKE 1 Memoria hydrochlori 2-02 TABLET BY l de 50 MG 20:38: MOUTH Raul Oral Tablet 00 EVERY 6 TO 8 HOURS NEEDED predniSONE Yes TAKE 1 Mem[facility] ia 10 mg oral 2-02 TABLET BY l tablet 20:38: MOUTH Secor 00 EVERY DAY FOR 90 DAYS doxycycline [...] 2-02 TABLET BY l tablet 20:38: MOUTH Secor 00 THREE TIMES A DAY NIFEdipine Yes TAKE 1 Mem[facility] ia (Eqv-Adalat 2-02 TABLET BY l CC) 30 mg 20:38: MOUTH Secor oral 00 EVERY DAY tablet, ON EMPTY extended STOMACH release FOR 30 DAYS Furosemide Yes TAKE 1 Memor ia 40 MG Oral 2-02 TABLET BY l Tablet 20:38: MOUTH Secor 00 EVERY DAY NEEDED FOR SWELLING tramadol Yes TAKE 1 Memoria hydrochlori 2-02 TABLET BY l de 50 MG 20:38: MOUTH Secor Oral Tablet 00 EVERY 6 TO 8 HOURS NEEDED predniSONE Yes TAKE 1 Mem[facility] ia 10 mg oral 2-02 TABLET BY l tablet 20:38: MOUTH Secor 00 EVERY DAY FOR 90 DAYS doxycycline [...] tab, Ajay n 00 1 Refill(s), Pharmacy: [facility] #[id number], 149.86, cm, 12/24/20 13:59:00 CDT, Height, 93.182, kg, 12/24/20 13:59:00 CDT, Weight primidone 2021-0 Yes 50 mg = 1 Mem oria 50 mg oral 3-26 tab, PO, l tablet 19:08: Bedtime, # Jessie nn 00 90 tab, 2 Refill(s), Pharmacy: [facility] #[id number], 149.86, cm, 12/24/20 13:59:00 CDT, Height, 93.182, kg, 12/24/20 13:59:00 CDT, Weight donepezil 2021-0 Yes = 1 tab, Jose Francisco zhang 10 mg oral 3-26 PO, Daily, l tablet 19:08: # 90 tab, Ajay n 00 1 Refill(s), Pharmacy: [facility] #[id number], 149.86, cm, 12/24/20 13:59:00 CDT, Height, 93.182, kg, 12/24/20 13:59:00 CDT, Weight primidone 1-0 Yes 50 mg = 1 Mem oria 50 mg oral 3-26 tab, PO, l tablet 19:08: Bedtime, # Jessie nn 00 90 tab, 2 Refill(s), Pharmacy: [facility] #[id number], 149.86, cm, 12/24/20 13:59:00 CDT, Height, 93.182, kg, 12/24/20 13:59:00 CDT, Weight donepezil 1-0 Yes = 1 tab, Jose Francisco zhang 10 mg oral 3-26 PO, Daily, l tablet 19:08: # 90 tab, Ajay n 00 1 Refill(s), Pharmacy: [facility] #[id number], 149.86, cm, 12/24/20 13:59:00 CDT, Height, 93.182, kg, 12/24/20 13:59:00 CDT, Weight primidone 2021-0 Yes 50 mg = 1 Mem oria 50 mg oral 3-26 tab, PO, l tablet 19:08: Bedtime, # Jessie nn 00 90 tab, 2 Refill(s), Pharmacy: [facility] #[id number], 149.86, cm, 12/24/20 13:59:00 CDT, Height, 93.182, kg, 12/24/20 13:59:00 CDT, Weight donepezil 1-0 Yes = 1 tab, Jose Francisco zhang 10 mg oral 3-26 PO, Daily, l tablet 19:08: # 90 tab, Ajay n 00 1 Refill(s), Pharmacy: [facility] #[id number], 149.86, cm, 12/24/20 13:59:00 CDT, Height, 93.182, kg, 12/24/20 13:59:00 CDT, Weight primidone 2021-0 Yes 50 mg = 1 Mem oria 50 mg oral 3-26 tab, PO, l tablet 19:08: Bedtime, # Jessie nn 00 90 tab, 2 Refill(s), Pharmacy: [facility] #[id number], 149.86, cm, 12/24/20 13:59:00 CDT, Height, 93.182, kg, 12/24/20 13:59:00 CDT, Weight donepezil 2020-0 Yes = 1 tab, Jose Francisco zhang 10 mg oral 3-26 PO, Daily, l tablet 19:08: # 90 tab, Ajay n 00 1 Refill(s), Pharmacy: [facility] #[id number], 149.86, cm, 12/24/20 13:59:00 CDT, Height, 93.182, kg, 12/24/20 13:59:00 CDT, Weight primidone 1-0 Yes 50 mg = 1 Mem oria 50 mg oral 3-26 tab, PO, l tablet 19:08: Bedtime, # Jessie nn 00 90 tab, 2 Refill(s), Pharmacy: [facility] #[id number], 149.86, cm, 12/24/20 13:59:00 CDT, Height, 93.182, kg, 12/24/20 13:59:00 CDT, Weight donepezil 1-0 Yes = 1 tab, Jose Francisco zhang 10 mg oral 3-26 PO, Daily, l tablet 19:08: # 90 tab, Ajay n 00 1 Refill(s), Pharmacy: [facility] #[id number], 149.86, cm, 12/24/20 13:59:00 CDT, Height, 93.182, kg, 12/24/20 13:59:00 CDT, Weight primidone 2021-0 Yes 50 mg = 1 Mem oria 50 mg oral 3-26 tab, PO, l tablet 19:08: Bedtime, # Jessie nn 00 90 tab, 2 Refill(s), Pharmacy: [facility] #[id number], 149.86, cm, 12/24/20 13:59:00 CDT, Height, 93.182, kg, 12/24/20 13:59:00 CDT, Weight donepezil 1-0 Yes = 1 tab, Jose Francisco zhang 10 mg oral 3-26 PO, Daily, l tablet 19:08: # 90 tab, Ajay n 00 1 Refill(s), Pharmacy: [facility] #[id number], 149.86, cm, 12/24/20 13:59:00 CDT, Height, 93.182, kg, 12/24/20 13:59:00 CDT, Weight primidone 1-0 Yes 50 mg = 1 Mem oria 50 mg oral 3-26 tab, PO, l tablet 19:08: Bedtime, # Jessie nn 00 90 tab, 2 Refill(s), Pharmacy: [facility] #[id number], 149.86, cm, 12/24/20 13:59:00 CDT, Height, 93.182, kg, 12/24/20 13:59:00 CDT, Weight donepezil 2020-0 Yes = 1 tab, Jose Francisco zhang 10 mg oral 3-26 PO, Daily, l tablet 19:08: # 90 tab, Ajay n 00 1 Refill(s), Pharmacy: [facility] #[id number], 149.86, cm, 12/24/20 13:59:00 CDT, Height, 93.182, kg, 12/24/20 13:59:00 CDT, Weight primidone 1-0 Yes 50 mg = 1 Mem oria 50 mg oral 3-26 tab, PO, l tablet 19:08: Bedtime, # Jessie nn 00 90 tab, 2 Refill(s), Pharmacy: [facility] #[id number], 149.86, cm, 12/24/20 13:59:00 CDT, Height, 93.182, kg, 12/24/20 13:59:00 CDT, Weight donepezil 1-0 Yes = 1 tab, Jose Francisco zhang 10 mg oral 3-26 PO, Daily, l tablet 19:08: # 90 tab, Ajay n 00 1 Refill(s), Pharmacy: [facility] #[id number], 149.86, cm, 12/24/20 13:59:00 CDT, Height, 93.182, kg, 12/24/20 13:59:00 CDT, Weight primidone 1-0 Yes 50 mg = 1 Mem oria 50 mg oral 3-26 tab, PO, l tablet 19:08: Bedtime, # Jessie nn 00 90 tab, 2 Refill(s), Pharmacy: [facility] #[id number], 149.86, cm, 12/24/20 13:59:00 CDT, Height, 93.182, kg, 12/24/20 13:59:00 CDT, Weight donepezil 2020-0 Yes = 1 tab, Jose Francisco zhang 10 mg oral 3-26 PO, Daily, l tablet 19:08: # 90 tab, Ajay n 00 1 Refill(s), Pharmacy: [facility] #[id number], 149.86, cm, 12/24/20 13:59:00 CDT, Height, 93.182, kg, 12/24/20 13:59:00 CDT, Weight primidone 2020-0 Yes 50 mg = 1 Mem oria 50 mg oral 3-26 tab, PO, l tablet 19:08: Bedtime, # Jessie nn 00 90 tab, 2 Refill(s), Pharmacy: [facility] #[id number], 149.86, cm, 12/24/20 13:59:00 CDT, Height, 93.182, kg, 12/24/20 13:59:00 CDT, Weight donepezil 1-0 Yes = 1 tab, Jose Francisco zhang 10 mg oral 3-26 PO, Daily, l tablet 19:08: # 90 tab, Ajay n 00 1 Refill(s), Pharmacy: [facility] #[id number], 149.86, cm, 12/24/20 13:59:00 CDT, Height, 93.182, kg, 12/24/20 13:59:00 CDT, Weight primidone 2021-0 Yes 50 mg = 1 Mem oria 50 mg oral 3-26 tab, PO, l tablet 19:08: Bedtime, # Jessie nn 00 90 tab, 2 Refill(s), Pharmacy: [facility] #[id number], 149.86, cm, 12/24/20 13:59:00 CDT, Height, 93.182, kg, 12/24/20 13:59:00 CDT, Weight donepezil 202-0 Yes = 1 tab, Jose Francisco zhang 10 mg oral 3-26 PO, Daily, l tablet 19:08: # 90 tab, Ajay n 00 1 Refill(s), Pharmacy: [facility] #[id number], 149.86, cm, 12/24/20 13:59:00 CDT, Height, 93.182, kg, 12/24/20 13:59:00 CDT, Weight primidone 1-0 Yes 50 mg = 1 Mem oria 50 mg oral 3-26 tab, PO, l tablet 19:08: Bedtime, # Jessie nn 00 90 tab, 2 Refill(s), Pharmacy: [facility] #[id number], 149.86, cm, 12/24/20 13:59:00 CDT, Height, 93.182, kg, 12/24/20 13:59:00 CDT, Weight donepezil 2020-0 Yes = 1 tab, Jose Francisco zhang 10 mg oral 3-26 PO, Daily, l tablet 19:08: # 90 tab, Ajay n 00 1 Refill(s), Pharmacy: [facility] #[id number], 149.86, cm, 12/24/20 13:59:00 CDT, Height, 93.182, kg, 12/24/20 13:59:00 CDT, Weight primidone 1-0 Yes 50 mg = 1 Mem oria 50 mg oral 3-26 tab, PO, l tablet 19:08: Bedtime, # Jessie nn 00 90 tab, 2 Refill(s), Pharmacy: [facility] #[id number], 149.86, cm, 12/24/20 13:59:00 CDT, Height, 93.182, kg, 12/24/20 13:59:00 CDT, Weight donepezil 202-0 Yes = 1 tab, Jose Francisco zhang 10 mg oral 3-26 PO, Daily, l tablet 19:08: # 90 tab, Ajay n 00 1 Refill(s), Pharmacy: [facility] #[id number], 149.86, cm, 12/24/20 13:59:00 CDT, Height, 93.182, kg, 12/24/20 13:59:00 CDT, Weight primidone 2021-0 Yes 50 mg = 1 Mem oria 50 mg oral 3-26 tab, PO, l tablet 19:08: Bedtime, # Jessie nn 00 90 tab, 2 Refill(s), Pharmacy: [facility] #[id number], 149.86, cm, 12/24/20 13:59:00 CDT, Height, 93.182, kg, 12/24/20 13:59:00 CDT, Weight donepezil 2021-0 Yes = 1 tab, Jose Francisco zhang 10 mg oral 3-26 PO, Daily, l tablet 19:08: # 90 tab, Ajay n 00 1 Refill(s), Pharmacy: [facility] #[id number], 149.86, cm, 12/24/20 13:59:00 CDT, Height, 93.182, kg, 12/24/20 13:59:00 CDT, Weight primidone 2021-0 Yes 50 mg = 1 Mem oria 50 mg oral 3-26 tab, PO, l tablet 19:08: Bedtime, # Jessie nn 00 90 tab, 2 Refill(s), Pharmacy: [facility] #[id number], 149.86, cm, 12/24/20 13:59:00 CDT, Height, 93.182, kg, 12/24/20 13:59:00 CDT, Weight donepezil 2021-0 Yes = 1 tab, Jose Francisco zhang 10 mg oral 3-26 PO, Daily, l tablet 19:08: # 90 tab, Ajay n 00 1 Refill(s), Pharmacy: [facility] #[id number], 149.86, cm, 12/24/20 13:59:00 CDT, Height, 93.182, kg, 12/24/20 13:59:00 CDT, Weight primidone 2021-0 Yes 50 mg = 1 Mem oria 50 mg oral 3-26 tab, PO, l tablet 19:08: Bedtime, # Jessie nn 00 90 tab, 2 Refill(s), Pharmacy: [facility] #[id number], 149.86, cm, 12/24/20 13:59:00 CDT, Height, 93.182, kg, 12/24/20 13:59:00 CDT, Weight Lidocaine Lidocaine 1-0 No 10mg Com 12-09 [facility]: - [facility] 00 [facility] Celestone Celestone 2020-0 No 6mg Com mon Soluspan Soluspan 3-11 [facility] (Betamethas (Betamethas 00:00: - CHI one) one) 00 [facility] Lidocaine Lidocaine 2020-0 No 10mg Com 12-09 [facility] 00:[facility]: - [facility] 00 [facility] Celestone Celestone 2020-0 No 6mg Com mon Soluspan Soluspan 3-11 [facility] (Betamethas (Betamethas 00:00: - CHI one) one) 00 [facility] Lidocaine Lidocaine 2020-0 No 10mg Com 12-09 [facility] 00:[facility]: - [facility] 00 [facility] Celestone Celestone 2020-0 No 6mg Com mon Soluspan Soluspan 3-11 [facility] (Betamethas (Betamethas 00:00: - CHI one) one) 00 [facility] Lidocaine Lidocaine 1-0 No 10mg Com 12-09 [facility] 00:00: - [facility] 00 [facility] Celestone Celestone 2020-0 No 6mg Com mon Soluspan Soluspan 3-11 [facility] (Betamethas (Betamethas 00:00: - CHI one) one) 00 [facility] Lidocaine Lidocaine 1-0 No 10mg Com 12-09 [facility] 00:00: - [facility] 00 [facility] Celestone Celestone 2020-0 No 6mg Com mon Soluspan Soluspan 3-11 [facility] (Betamethas (Betamethas 00:00: - CHI one) one) 00 [facility] Lidocaine Lidocaine 1-0 No 10mg Com 12-09 [facility] 00:00: - [facility] 00 [facility] Celestone Celestone 2020-0 No 6mg Com mon Soluspan Soluspan 3-11 [facility] (Betamethas (Betamethas 00:00: - CHI one) one) 00 [facility] Lidocaine Lidocaine 2020-0 No 10mg Com mon 12-09 [facility] 00:00: - [facility] 00 [facility] Celestone Celestone 2020-0 No 6mg Com mon Soluspan Soluspan 3-11 [facility] (Betamethas (Betamethas 00:00: - [facility]I one) one) 00 [facility] Lidocaine Lidocaine 2020-0 No 10mg Com mon 12-09 [facility] 00:00: - [facility] 00 [facility] Celestone Celestone 2020-0 No 6mg Com mon Soluspan Soluspan 3-11 [facility] (Betamethas (Betamethas 00:00: - CHI one) one) 00 [facility] Lidocaine Lidocaine 2020-0 No 10mg Com mon 12-09 [facility] 00:00: - [facility] 00 [facility] Celestone Celestone 2020-0 No 6mg Com mon Soluspan Soluspan 3-11 [facility] (Betamethas (Betamethas 00:00: - [facility]I one) one) 00 [facility] Lidocaine Lidocaine 2020-0 No 10mg Com 12-09 [facility] 00:[facility]: - [facility] 00 [facility] Celestone Celestone 2020-0 No 6mg Com mon Soluspan Soluspan 3-11 [facility] (Betamethas (Betamethas 00:00: - [facility]I one) one) 00 [facility] Lovastatin 2019-10 No 20 mg, 1 Mem oria 2-07 tab, l 03:00: Route: PO, Drug form: TAB, Bedtime, Dosing Weight 104.545, kg, Start date: 09/05/20 21:00:00 SUPERVISOR TYPE DISK QUALITY CONTROL, Duration: 30 day, Stop date: 10/04/20 21:00:00 SUPERVISOR TYPE DISK QUALITY CONTROL Primidone 2019-10 No Notes: Memori a 2-07 (Same as: l 03:00: Mysoline) Lipitor 2019-10 No Notes: Memoria 2-07 (Same As: l 03:00: Lipitor) Lovastatin 2019-10 No 20 mg, 1 Mem oria 2-07 tab, l 03:00: Route: PO, Drug form: TAB, Bedtime, Dosing Weight 104.545, kg, Start date: 09/05/20 21:00:00 SUPERVISOR TYPE DISK QUALITY CONTROL, Duration: 30 day, Stop date: 10/04/20 21:00:00 SUPERVISOR TYPE DISK QUALITY CONTROL Primidone 2019-10 No Notes: Memori a 2-07 (Same as: l 03:00: Mysoline) Lipitor 2019-10 No Notes: Memoria 2-07 (Same As: l 03:00: Lipitor) Lovastatin 2019-10 No 20 mg, 1 Mem oria 2-07 tab, l 03:00: Route: PO, Drug form: TAB, Bedtime, Dosing Weight 104.545, kg, Start date: 09/05/20 21:00:00 SUPERVISOR TYPE DISK QUALITY CONTROL, Duration: 30 day, Stop date: 10/04/20 21:00:00 SUPERVISOR TYPE DISK QUALITY CONTROL Primidone 2019-10 No Notes: Memori a 2-07 (Same as: l 03:00: Mysoline) Lipitor 2019-10 No Notes: Memoria 2-07 (Same As: l 03:00: Lipitor) Lovastatin 2019-10 No 20 mg, 1 Mem oria 2-07 tab, l 03:00: Route: PO, Drug form: TAB, Bedtime, Dosing Weight 104.545, kg, Start date: 09/05/20 21:00:00 SUPERVISOR TYPE DISK QUALITY CONTROL, Duration: 30 day, Stop date: 10/04/20 21:00:00 SUPERVISOR TYPE DISK QUALITY CONTROL Primidone 2019-10 No Notes: Memori a 2-07 (Same as: l 03:00: Mysoline) Lipitor 2019-10 No Notes: Memoria 2-07 (Same As: l 03:00: Lipitor) Lovastatin 2019-10 No 20 mg, 1 Mem oria 2-07 tab, l 03:00: Route: PO, Drug form: TAB, Bedtime, Dosing Weight 104.545, kg, Start date: 09/05/20 21:00:00 SUPERVISOR TYPE DISK QUALITY CONTROL, Duration: 30 day, Stop date: 10/04/20 21:00:00 SUPERVISOR TYPE DISK QUALITY CONTROL Primidone 2019-10 No Notes: Memori a 2-07 (Same as: l 03:00: Mysoline) Lipitor 2019-10 No Notes: Memoria 2-07 (Same As: l 03:00: Lipitor) Lovastatin 2019-10 No 20 mg, 1 Mem oria 2-07 tab, l 03:00: Route: PO, Secor 00 Drug form: TAB, Bedtime, Dosing Weight 104.545, kg, Start date: 09/05/20 21:00:00 SUPERVISOR TYPE DISK QUALITY CONTROL, Duration: 30 day, Stop date: 10/04/20 21:00:00 SUPERVISOR TYPE DISK QUALITY CONTROL Primidone 2019-10 No Notes: Memori a 2-07 (Same as: l 03:00: Mysoline) Lipitor 2019-10 No Notes: Memoria 2-07 (Same As: l 03:00: Lipitor) Lovastatin 2019-10 No 20 mg, 1 Mem oria 2-07 tab, l 03:00: Route: PO, Secor 00 Drug form: TAB, Bedtime, Dosing Weight 104.545, kg, Start date: 09/05/20 21:00:00 SUPERVISOR TYPE DISK QUALITY CONTROL, Duration: 30 day, Stop date: 10/04/20 21:00:00 SUPERVISOR TYPE DISK QUALITY CONTROL Primidone 2019-10 No Notes: Memori a 2-07 (Same as: l 03:00: Mysoline) Lipitor 2019-10 No Notes: Memoria 2-07 (Same As: l 03:00: Lipitor) Lovastatin 2019-10 No 20 mg, 1 Mem oria 2-07 tab, l 03:00: Route: PO, Raul 00 Drug form: TAB, Bedtime, Dosing Weight 104.545, kg, Start date: 09/05/20 21:00:00 SUPERVISOR TYPE DISK QUALITY CONTROL, Duration: 30 day, Stop date: 10/04/20 21:00:00 SUPERVISOR TYPE DISK QUALITY CONTROL Primidone 2019-10 No Notes: Memori a 2-07 (Same as: l 03:00: Mysoline) Lipitor 2019-10 No Notes: Memoria 2-07 (Same As: l 03:00: Lipitor) Lovastatin 2019-10 No 20 mg, 1 Mem oria 2-07 tab, l 03:00: Route: PO, Raul 00 Drug form: TAB, Bedtime, Dosing Weight 104.545, kg, Start date: 09/05/20 21:00:00 SUPERVISOR TYPE DISK QUALITY CONTROL, Duration: 30 day, Stop date: 10/04/20 21:00:00 SUPERVISOR TYPE DISK QUALITY CONTROL Primidone 2019-10 No Notes: Memori a 2-07 (Same as: l 03:00: Mysoline) Lovastatin 2019-10 No 20 mg, 1 Mem oria 2-07 tab, l 03:00: Route: PO, Drug form: TAB, Bedtime, Dosing Weight 104.545, kg, Start date: 09/05/20 21:00:00 SUPERVISOR TYPE DISK QUALITY CONTROL, Duration: 30 day, Stop date: 10/04/20 21:00:00 SUPERVISOR TYPE DISK QUALITY CONTROL Lovastatin 2019-10 No 20 mg, 1 Mem oria 2-07 tab, l 03:00: Route: PO, Drug form: TAB, Bedtime, Dosing Weight 104.545, kg, Start date: 09/05/20 21:00:00 SUPERVISOR TYPE DISK QUALITY CONTROL, Duration: 30 day, Stop date: 10/04/20 21:00:00 SUPERVISOR TYPE DISK QUALITY CONTROL Primidone 2019-10 No Notes: Memori a 2-07 [...] Weight 104.545, kg, Start date: 09/05/20 21:00:00 SUPERVISOR TYPE DISK QUALITY CONTROL, Duration: 30 day, Stop date: 10/04/20 21:00:00 SUPERVISOR TYPE DISK QUALITY CONTROL Primidone 2019-10 No Notes: Memori a 2-07 (Same as: l 03:00: Mysoline) Lipitor 2019-10 No Notes: Memoria 2-07 (Same As: l 03:00: Lipitor) Lovastatin 2019-10 No 20 mg, 1 Mem oria 2-07 tab, l 03:00: Route: PO, Raul 00 Drug form: TAB, Bedtime, Dosing Weight 104.545, kg, Start date: 09/05/20 21:00:00 SUPERVISOR TYPE DISK QUALITY CONTROL, Duration: 30 day, Stop date: 10/04/20 21:00:00 SUPERVISOR TYPE DISK QUALITY CONTROL Primidone 2019-10 No Notes: Memori a 2-07 (Same as: l 03:00: Mysoline) Lipitor 2019-10 No Notes: Memoria 2-07 (Same As: l 03:00: Lipitor) Lovastatin 2019-10 No 20 mg, 1 Mem oria 2-07 tab, l 03:00: Route: PO, Drug form: TAB, Bedtime, Dosing Weight 104.545, kg, Start date: 09/05/20 21:00:00 SUPERVISOR TYPE DISK QUALITY CONTROL, Duration: 30 day, Stop date: 10/04/20 21:00:00 SUPERVISOR TYPE DISK QUALITY CONTROL Primidone 2019-10 No Notes: Memori a 2-07 (Same as: l 03:00: Mysoline) Lipitor 2019-10 No Notes: Memoria 2-07 (Same As: l 03:00: Lipitor) Lovastatin 2019-10 No 20 mg, 1 Mem oria 2-07 tab, l 03:00: Route: PO, Drug form: TAB, Bedtime, Dosing Weight 104.545, kg, Start date: 09/05/20 21:00:00 SUPERVISOR TYPE DISK QUALITY CONTROL, Duration: 30 day, Stop date: 10/04/20 21:00:00 SUPERVISOR TYPE DISK QUALITY CONTROL Primidone 2019-10 No Notes: Memori a 2-07 (Same as: l 03:00: Mysoline) Lipitor 2019-10 No Notes: Memoria 2-07 (Same As: l 03:00: Lipitor) Lovastatin 2019-10 No 20 mg, 1 Mem oria 2-07 tab, l 03:00: Route: PO, Drug form: TAB, Bedtime, Dosing Weight 104.545, kg, Start date: 09/05/20 21:00:00 SUPERVISOR TYPE DISK QUALITY CONTROL, Duration: 30 day, Stop date: 10/04/20 21:00:00 SUPERVISOR TYPE DISK QUALITY CONTROL Primidone 2019-10 No Notes: Memori a 2-07 (Same as: l 03:00: Mysoline) Lipitor 2019-10 No Notes: Memoria 2-07 (Same As: l 03:00: Lipitor) Acetaminoph 2019- Yes 500 mg = 1 [...] 104.545, kg, Daily, Start date: 09/05/20 9:00:00 SUPERVISOR TYPE DISK QUALITY CONTROL, Duration: 30 day, Stop date: 10/04/20 9:00:00 SUPERVISOR TYPE DISK QUALITY CONTROL gabapentin 2019-10 No Notes: Memor ia 300 [...] 104.545, kg, Daily, Start date: 09/05/20 9:00:00 SUPERVISOR TYPE DISK QUALITY CONTROL, Duration: 30 day, Stop date: 10/04/20 9:00:00 SUPERVISOR TYPE DISK QUALITY CONTROL gabapentin 2019-10 No Notes: Memor ia 300 [...] 104.545, kg, Daily, Start date: 09/05/20 9:00:00 SUPERVISOR TYPE DISK QUALITY CONTROL, Duration: 30 day, Stop date: 10/04/20 9:00:00 SUPERVISOR TYPE DISK QUALITY CONTROL gabapentin 2019-10 No Notes: Memor ia 300 [...] 104.545, kg, Daily, Start date: 09/05/20 9:00:00 SUPERVISOR TYPE DISK QUALITY CONTROL, Duration: 30 day, Stop date: 10/04/20 9:00:00 SUPERVISOR TYPE DISK QUALITY CONTROL gabapentin 2019-10 No Notes: [facility] 300 MG Oral 2-06 (Same as: l Capsule 15:00: Neurontin) ropinirole 2019-10 No Notes: [facility] 2-06 (Same as: l 15:00: Requip) Bupropion 2019-10 No Notes: [facility] a 2-06 (Same as: l 15:00: Wellbutrin Secor XL) "Do Not Crush" carvedilol 2019-10 No [...] 104.545, kg, Daily, Start date: 09/05/20 9:00:00 SUPERVISOR TYPE DISK QUALITY CONTROL, Duration: 30 day, Stop date: 10/04/20 9:00:00 SUPERVISOR TYPE DISK QUALITY CONTROL gabapentin 2019-10 No Notes: [facility] 300 MG Oral 2-06 (Same as: l Capsule 15:00: Neurontin) ropinirole 2019-10 No Notes: [facility] 2-06 (Same as: l 15:00: Requip) Bupropion 2019-10 No Notes: [facility] a 2-06 (Same as: l 15:00: Wellbutrin Secor 00 XL) "Do Not Crush" carvedilol 2019-10 [...] 104.545, kg, Daily, Start date: 09/05/20 9:00:00 SUPERVISOR TYPE DISK QUALITY CONTROL, Duration: 30 day, Stop date: 10/04/20 9:00:00 SUPERVISOR TYPE DISK QUALITY CONTROL gabapentin 2019-10 No Notes: [facility] 300 [...] 104.545, kg, Daily, Start date: 09/05/20 9:00:00 SUPERVISOR TYPE DISK QUALITY CONTROL, Duration: 30 day, Stop date: 10/04/20 9:00:00 SUPERVISOR TYPE DISK QUALITY CONTROL gabapentin 2019-10 No Notes: [facility] 300 MG Oral 2-06 (Same as: l Capsule 15:00: Neurontin) ropinirole 2019-10 No Notes: [facility] 2-06 (Same as: l 15:00: Requip) Bupropion 2019-10 No Notes: [facility] a 2-06 (Same as: l 15:00: Wellbutrin Raul 00 XL) "Do Not Crush" carvedilol 2019-10 No Notes: [facility] 2-06 Give with l 15:00: food. Secor 00 (Same As: Coreg) donepezil 2019-10 No [...] 104.545, kg, Daily, Start date: 09/05/20 9:00:00 SUPERVISOR TYPE DISK QUALITY CONTROL, Duration: 30 day, Stop date: 10/04/20 9:00:00 SUPERVISOR TYPE DISK QUALITY CONTROL gabapentin 2019-10 No Notes: [facility] 300 MG Oral 2-06 (Same as: l Capsule 15:00: Neurontin) ropinirole 2019-10 No Notes: [facility] 2-06 (Same as: l 15:00: Requip) Bupropion 2019-10 No Notes: Memori a 2-06 (Same as: l 15:00: Wellbutrin Raul 00 XL) "Do Not Crush" carvedilol 2019-10 No Notes: Memor ia 2-06 Give with l 15:00: food. Secor 00 (Same As: Coreg) donepezil 2019-10 No [...] 104.545, kg, Daily, Start date: 09/05/20 9:00:00 SUPERVISOR TYPE DISK QUALITY CONTROL, Duration: 30 day, Stop date: 10/04/20 9:00:00 SUPERVISOR TYPE DISK QUALITY CONTROL gabapentin 2019-10 No Notes: Memor ia 300 [...] 104.545, kg, Daily, Start date: 09/05/20 9:00:00 SUPERVISOR TYPE DISK QUALITY CONTROL, Duration: 30 day, Stop date: 10/04/20 9:00:00 SUPERVISOR TYPE DISK QUALITY CONTROL gabapentin 2019-10 No Notes: Memor ia 300 [...] 104.545, kg, Daily, Start date: 09/05/20 9:00:00 SUPERVISOR TYPE DISK QUALITY CONTROL, Duration: 30 day, Stop date: 10/04/20 9:00:00 SUPERVISOR TYPE DISK QUALITY CONTROL gabapentin 2019-10 No Notes: Memor ia 300 [...] 104.545, kg, Daily, Start date: 09/05/20 9:00:00 SUPERVISOR TYPE DISK QUALITY CONTROL, Duration: 30 day, Stop date: 10/04/20 9:00:00 SUPERVISOR TYPE DISK QUALITY CONTROL gabapentin 2019-10 No Notes: Memor ia 300 [...] 104.545, kg, Daily, Start date: 09/05/20 9:00:00 SUPERVISOR TYPE DISK QUALITY CONTROL, Duration: 30 day, Stop date: 10/04/20 9:00:00 SUPERVISOR TYPE DISK QUALITY CONTROL gabapentin 2019-10 No Notes: Memor ia 300 MG Oral 2-06 (Same as: l Capsule 15:00: Neurontin) ropinirole 2019-10 No Notes: Memor ia 2-06 (Same as: l 15:00: Requip) Bupropion 2019-10 No Notes: Memori a 2-06 (Same as: l 15:00: Wellbutrin Secor 00 XL) "Do Not Crush" carvedilol 2019-10 [...] 104.545, kg, Daily, Start date: 09/05/20 9:00:00 SUPERVISOR TYPE DISK QUALITY CONTROL, Duration: 30 day, Stop date: 10/04/20 9:00:00 SUPERVISOR TYPE DISK QUALITY CONTROL gabapentin 2019-10 No Notes: Memor ia 300 [...] 104.545, kg, Daily, Start date: 09/05/20 9:00:00 SUPERVISOR TYPE DISK QUALITY CONTROL, Duration: 30 day, Stop date: 10/04/20 9:00:00 SUPERVISOR TYPE DISK QUALITY CONTROL gabapentin 2019-10 No Notes: Memor ia 300 [...] 104.545, kg, Daily, Start date: 09/05/20 9:00:00 SUPERVISOR TYPE DISK QUALITY CONTROL, Duration: 30 day, Stop date: 10/04/20 9:00:00 SUPERVISOR TYPE DISK QUALITY CONTROL gabapentin 2019-10 No Notes: Memor ia 300 MG Oral 2-06 (Same as: l Capsule 15:00: Neurontin) ropinirole 2019-10 No Notes: Memor ia 2-06 (Same as: l 15:00: Requip) Streptococc 2019-10 No Notes: Jose Francisco zhang us 2-06 Shake well l pneumoniae 14:12: prior to Her ivory serotype 1 45 use (Same capsular as: antigen Prevnar diphtheria 13) [id number] protein conjugate vaccine / Streptococc us pneumoniae serotype 14 capsular antigen diphtheria [id number] protein conjugate vaccine / Streptococc us pneumoniae serotype 18C capsular antigen d Streptococc 2020- No Notes: Jose Francisco zhang us 2-06 Shake well l pneumoniae 14:12: prior to Her ivory serotype 1 45 use (Same capsular as: antigen Prevnar diphtheria 13) [id number] protein conjugate vaccine / Streptococc us pneumoniae serotype 14 capsular antigen diphtheria [id number] protein conjugate vaccine / Streptococc us pneumoniae serotype 18C capsular antigen d Streptococc 2020- No Notes: Jose Francisco zhang us 2-06 Shake well l pneumoniae 14:12: prior to Her ivory serotype 1 45 use (Same capsular as: antigen Prevnar diphtheria 13) [id number] protein conjugate vaccine / Streptococc us pneumoniae serotype 14 capsular antigen diphtheria [id number] protein conjugate vaccine / Streptococc us pneumoniae serotype 18C capsular antigen d Streptococc 2020- No Notes: Jose Francisco zhang us 2-06 Shake well l pneumoniae 14:12: prior to Her ivory serotype 1 45 use (Same capsular as: antigen Prevnar diphtheria 13) [id number] protein conjugate vaccine / Streptococc us pneumoniae serotype 14 capsular antigen diphtheria [id number] protein conjugate vaccine / Streptococc us pneumoniae serotype 18C capsular antigen d Streptococc 2020- No Notes: Jose Francisco zhang us 2-06 Shake well l pneumoniae 14:12: prior to Her ivory serotype 1 45 use (Same capsular as: antigen Prevnar diphtheria 13) [id number] protein conjugate vaccine / Streptococc us pneumoniae serotype 14 capsular antigen diphtheria [id number] protein conjugate vaccine / Streptococc us pneumoniae serotype 18C capsular antigen d Streptococc 2020- No Notes: Jose Francisco zhang us 2-06 Shake well l pneumoniae 14:12: prior to Her ivory serotype 1 45 use (Same capsular as: antigen Prevnar diphtheria 13) [id number] protein conjugate vaccine / Streptococc us pneumoniae serotype 14 capsular antigen diphtheria [id number] protein conjugate vaccine / Streptococc us pneumoniae serotype 18C capsular antigen d Streptococc 2020- No Notes: Jose Francisco zhang us 2-06 Shake well l pneumoniae 14:12: prior to Her ivory serotype 1 45 use (Same capsular as: antigen Prevnar diphtheria 13) [id number] protein conjugate vaccine / Streptococc us pneumoniae serotype 14 capsular antigen diphtheria [id number] protein conjugate vaccine / Streptococc us pneumoniae serotype 18C capsular antigen d Streptococc 2020- No Notes: Jose Francisco zhang us 2-06 Shake well l pneumoniae 14:12: prior to Her ivory serotype 1 45 use (Same capsular as: antigen Prevnar diphtheria 13) [id number] protein conjugate vaccine / Streptococc us pneumoniae serotype 14 capsular antigen diphtheria [id number] protein conjugate vaccine / Streptococc us pneumoniae serotype 18C capsular antigen d Streptococc 2019-10 No Notes: Jose Francisco zhang 2-06 Shake well l pneumoniae 14:12: prior to Her ivory serotype 1 45 use (Same capsular as: antigen Prevnar diphtheria 13) [id number] protein conjugate vaccine / Streptococc us pneumoniae serotype 14 capsular antigen diphtheria [id number] protein conjugate vaccine / Streptococc us pneumoniae serotype 18C capsular antigen d Streptococc 2019-10 No Notes: Jose Francisco zhang 2-06 Shake well l pneumoniae 14:12: prior to Her ivory serotype 1 45 use (Same capsular as: antigen Prevnar diphtheria 13) [id number] protein conjugate vaccine / Streptococc us pneumoniae serotype 14 capsular antigen diphtheria [id number] protein conjugate vaccine / Streptococc us pneumoniae serotype 18C capsular antigen d Streptococc 2019-10 No Notes: Jose Francisco zhang 2-06 Shake well l pneumoniae 14:12: prior to Her ivory serotype 1 45 use (Same capsular as: antigen Prevnar diphtheria 13) [id number] protein conjugate vaccine / Streptococc us pneumoniae serotype 14 capsular antigen diphtheria [id number] protein conjugate vaccine / Streptococc us pneumoniae serotype 18C capsular antigen d Streptococc 2019-10 No Notes: Jose Francisco zhang 2-06 Shake well l pneumoniae 14:12: prior to Her ivory serotype 1 45 use (Same capsular as: antigen Prevnar diphtheria 13) [id number] protein conjugate vaccine / Streptococc us pneumoniae serotype 14 capsular antigen diphtheria [id number] protein conjugate vaccine / Streptococc us pneumoniae serotype 18C capsular antigen d Streptococc 2019-10 No Notes: Jose Francisco zhang 2-06 Shake well l pneumoniae 14:12: prior to Her ivory serotype 1 45 use (Same capsular as: antigen Prevnar diphtheria 13) [id number] protein conjugate vaccine / Streptococc us pneumoniae serotype 14 capsular antigen diphtheria [id number] protein conjugate vaccine / Streptococc us pneumoniae serotype 18C capsular antigen d Streptococc 2019-10 No Notes: Jose Francisco zhang 2-06 Shake well l pneumoniae 14:12: prior to Her ivory serotype 1 45 use (Same capsular as: antigen Prevnar diphtheria 13) [id number] protein conjugate vaccine / Streptococc us pneumoniae serotype 14 capsular antigen diphtheria [id number] protein conjugate vaccine / Streptococc us pneumoniae serotype 18C capsular antigen d Streptococc 2019-10 No Notes: Jose Francisco zhang us 2-06 Anegl gomes l pneumoniae 14:12: prior to Her ivory serotype 1 45 use (Same capsular as: antigen Prevnar diphtheria 13) [id number] protein conjugate vaccine / Streptococc us pneumoniae serotype 14 capsular antigen diphtheria [id number] protein conjugate vaccine / Streptococc us pneumoniae serotype 18C capsular antigen d Streptococc 2019-10 No Notes: Jose Francisco zhang us 2-06 Angel gomes l pneumoniae 14:12: prior to Her ivory serotype 1 45 use (Same capsular as: antigen Prevnar diphtheria 13) [id number] protein conjugate vaccine / Streptococc us pneumoniae serotype 14 capsular antigen diphtheria [id number] protein conjugate vaccine / Streptococc us pneumoniae serotype 18C capsular antigen d Thyroxine 2019-10 No Notes: Memori a 2-06 Take 1 l 14:00: hour Secor 00 before or 2 hours after meal; [...] a 2-06 Take 1 l 14:00: hour Secor 00 before or 2 hours after meal; Enteral feeds may interefere with the absorption of this medication . (Same as:Levothr oid) Thyroxine 2019-10 No Notes: Memori a 2-06 Take 1 l 14:00: hour Secor 00 before or 2 hours after meal; Enteral feeds may interefere with the absorption of this medication . (Same as:Levothr oid) Thyroxine 2019-10 No Notes: Memori a 2-06 Take 1 l 14:00: hour Secor 00 before or 2 hours after meal; [...] a 2-06 Take 1 l 14:00: hour Secor 00 before or 2 hours after meal; [...] a 2-06 Take 1 l 14:00: hour Secor 00 before or 2 hours after meal; Enteral feeds may interefere with the absorption of this medication . (Same as:Levothr oid) Thyroxine 2019-10 No Notes: Memori a 2-06 Take 1 l 14:00: hour Secor 00 before or 2 hours after meal; [...] a 2-06 Take 1 l 14:00: hour Secor 00 before or 2 hours after meal; Enteral feeds may interefere with the absorption of this medication . (Same as:Levothr oid) Thyroxine 2019-10 No Notes: Memori a 2-06 Take 1 l 14:00: hour Secor 00 before or 2 hours after meal; Enteral feeds may interefere with the absorption of this medication . (Same as:Levothr oid) Thyroxine 2019-10 No Notes: Memori a 2-06 Take 1 l 14:00: hour Secor 00 before or 2 hours after meal; [...] kg, ONCALL, STAT, Start date: 09/05/20 6:39:00 SUPERVISOR TYPE DISK QUALITY CONTROL, Duration: 1 doses or times, Dose = 2.2ml/kg, Max dose = 100ml -- "To be infused by Radiology Staff ONLY" Iohexol 2020-1 No 100 mL, Memoria 2-06 Route: l 12:39: IVP, Drug Raul 00 Form: SOLN, Dosing Weight 104.545, kg, ONCALL, STAT, Start date: 09/05/20 6:39:00 SUPERVISOR TYPE DISK QUALITY CONTROL, Duration: 1 doses or times, Dose = 2.2ml/kg, Max dose = 100ml -- "To be infused by Radiology Staff ONLY" Iohexol 2020-1 No 100 mL, Memoria 2-06 Route: l 12:39: IVP, Drug Secor 00 Form: SOLN, Dosing Weight 104.545, kg, ONCALL, STAT, Start date: 09/05/20 6:39:00 SUPERVISOR TYPE DISK QUALITY CONTROL, Duration: 1 doses or times, Dose = 2.2ml/kg, Max dose = 100ml -- "To be infused by Radiology Staff ONLY" Iohexol 2020-1 No 100 mL, Memoria 2-06 Route: l 12:39: IVP, Drug Secor 00 Form: SOLN, Dosing Weight 104.545, kg, ONCALL, STAT, Start date: 09/05/20 6:39:00 SUPERVISOR TYPE DISK QUALITY CONTROL, Duration: 1 doses or times, Dose = 2.2ml/kg, Max dose = 100ml -- "To be infused by Radiology Staff ONLY" Iohexol 2020-1 No 100 mL, Memoria 2-06 Route: l 12:39: IVP, Drug Secor 00 Form: SOLN, Dosing Weight 104.545, kg, ONCALL, STAT, Start date: 09/05/20 6:39:00 SUPERVISOR TYPE DISK QUALITY CONTROL, Duration: 1 doses or times, Dose = 2.2ml/kg, Max dose = 100ml -- "To be infused by Radiology Staff ONLY" Iohexol 2020-1 No 100 mL, Memoria 2-06 Route: l 12:39: IVP, Drug Raul 00 Form: SOLN, Dosing Weight 104.545, kg, ONCALL, STAT, Start date: 09/05/20 6:39:00 SUPERVISOR TYPE DISK QUALITY CONTROL, Duration: 1 doses or times, Dose = 2.2ml/kg, Max dose = 100ml -- "To be infused by Radiology Staff ONLY" Iohexol 2020-1 No 100 mL, Memoria 2-06 Route: l 12:39: IVP, Drug Secor 00 Form: SOLN, Dosing Weight 104.545, kg, ONCALL, STAT, Start date: 09/05/20 6:39:00 SUPERVISOR TYPE DISK QUALITY CONTROL, Duration: 1 doses or times, Dose = 2.2ml/kg, Max dose = 100ml -- "To be infused by Radiology Staff ONLY" Iohexol 2020-1 No 100 mL, Memoria 2-06 Route: l 12:39: IVP, Drug Secor 00 Form: SOLN, Dosing Weight 104.545, kg, ONCALL, STAT, Start date: 09/05/20 6:39:00 SUPERVISOR TYPE DISK QUALITY CONTROL, Duration: 1 doses or times, Dose = 2.2ml/kg, Max dose = 100ml -- "To be infused by Radiology Staff ONLY" Iohexol 2020-1 No 100 mL, Memoria 2-06 Route: l 12:39: IVP, Drug Secor 00 Form: SOLN, Dosing Weight 104.545, kg, ONCALL, STAT, Start date: 09/05/20 6:39:00 SUPERVISOR TYPE DISK QUALITY CONTROL, Duration: 1 doses or times, Dose = 2.2ml/kg, Max dose = 100ml -- "To be infused by Radiology Staff ONLY" Iohexol 2020-1 No 100 mL, Memoria 2-06 Route: l 12:39: IVP, Drug Raul 00 Form: SOLN, Dosing Weight 104.545, kg, ONCALL, STAT, Start date: 09/05/20 6:39:00 SUPERVISOR TYPE DISK QUALITY CONTROL, Duration: 1 doses or times, Dose = 2.2ml/kg, Max dose = 100ml -- "To be infused by Radiology Staff ONLY" Iohexol 2020-1 No 100 mL, Memoria 2-06 Route: l 12:39: IVP, Drug Raul 00 Form: SOLN, Dosing Weight 104.545, kg, ONCALL, STAT, Start date: 09/05/20 6:39:00 SUPERVISOR TYPE DISK QUALITY CONTROL, Duration: 1 doses or times, Dose = 2.2ml/kg, Max dose = 100ml -- "To be infused by Radiology Staff ONLY" Iohexol 2020-1 No 100 mL, Memoria 2-06 Route: l 12:39: IVP, Drug Secor 00 Form: SOLN, Dosing Weight 104.545, kg, ONCALL, STAT, Start date: 09/05/20 6:39:00 SUPERVISOR TYPE DISK QUALITY CONTROL, Duration: 1 doses or times, Dose = 2.2ml/kg, Max dose = 100ml -- "To be infused by Radiology Staff ONLY" Iohexol 2020-1 No 100 mL, Memoria 2-06 Route: l 12:39: IVP, Drug Raul 00 Form: SOLN, Dosing Weight 104.545, kg, ONCALL, STAT, Start date: 09/05/20 6:39:00 SUPERVISOR TYPE DISK QUALITY CONTROL, Duration: 1 doses or times, Dose = 2.2ml/kg, Max dose = 100ml -- "To be infused by Radiology Staff ONLY" Iohexol 2020-1 No 100 mL, Memoria 2-06 Route: l 12:39: IVP, Drug Raul 00 Form: SOLN, Dosing Weight 104.545, kg, ONCALL, STAT, Start date: 09/05/20 6:39:00 SUPERVISOR TYPE DISK QUALITY CONTROL, Duration: 1 doses or times, Dose = 2.2ml/kg, Max dose = 100ml -- "To be infused by Radiology Staff ONLY" Iohexol 2020-1 No 100 mL, Memoria 2-06 Route: l 12:39: IVP, Drug Raul 00 Form: SOLN, Dosing Weight 104.545, kg, ONCALL, STAT, Start date: 09/05/20 6:39:00 SUPERVISOR TYPE DISK QUALITY CONTROL, Duration: 1 doses or times, Dose = 2.2ml/kg, Max dose = 100ml -- "To be infused by Radiology Staff ONLY" Iohexol 2020-1 No 100 mL, Memoria 2-06 Route: l 12:39: IVP, Drug Raul 00 Form: SOLN, Dosing Weight 104.545, kg, ONCALL, STAT, Start date: 09/05/20 6:39:00 SUPERVISOR TYPE DISK QUALITY CONTROL, Duration: 1 doses or times, Dose = 2.2ml/kg, Max dose = 100ml -- "To be infused by Radiology Staff ONLY" Acetaminoph 2019-10 No Notes: Max Memoria en 2-06 acetaminop l 07:00: hen 4000 Secor 00 mg/day (4 gm/day). (Same as: Tylenol Extra Strength) Acetaminoph 2019-10 No Notes: Max Memoria en 2-06 acetaminop l 07:00: hen 4000 Secor 00 mg/day (4 gm/day). (Same as: Tylenol Extra Strength) Acetaminoph 2019-10 No Notes: Max Memoria en 2-06 acetaminop l 07:00: hen 4000 Secor 00 mg/day (4 gm/day). (Same as: Tylenol Extra Strength) Acetaminoph 2019-10 No Notes: Max Memoria en 2-06 acetaminop l 07:00: hen 4000 Secor 00 mg/day (4 gm/day). (Same as: Tylenol Extra Strength) Acetaminoph 2019-10 No Notes: Max Memoria en 2-06 acetaminop l 07:00: hen 4000 Secor 00 mg/day (4 gm/day). (Same as: Tylenol [...] en 2-06 acetaminop l 07:00: hen 4000 Secor 00 mg/day (4 gm/day). (Same as: Tylenol Extra Strength) Acetaminoph 2019-10 No Notes: Max Memoria en 2-06 acetaminop l 07:00: hen 4000 Secor 00 mg/day (4 gm/day). (Same as: Tylenol Extra Strength) Acetaminoph 2019-10 No Notes: Max Memoria en 2-06 acetaminop l 07:00: hen 4000 Raul 00 mg/day (4 gm/day). (Same as: Tylenol Extra Strength) Acetaminoph 2019-10 No Notes: Max Memoria en 2-06 acetaminop l 07:00: hen 4000 Secor 00 mg/day (4 gm/day). (Same as: Tylenol Extra Strength) Acetaminoph 2019-10 No Notes: Max Memoria en 2-06 acetaminop l 07:00: hen 4000 Secor 00 mg/day (4 gm/day). (Same as: Tylenol [...] en 2-06 acetaminop l 07:00: hen 4000 Secor 00 mg/day (4 gm/day). (Same as: Tylenol [...] l oral tablet 06:48: BID, # 180 Secor 00 tab, 1 Refill(s) amLODIPine 2019-10 Yes 10 mg = 1 Me moria 10 mg oral 2-06 tab, PO, l tablet 06:48: Daily, # Secor 00 90 tab, 0 Refill(s) escitalopra 2019-10 [...] tab, PO, l Tablet 06:48: Daily, # Secor 00 60 tab, 1 Refill(s) Trelegy 2019-10 [...] tab, PO, l tablet 06:48: Daily, # Secor 00 90 tab, 0 Refill(s) escitalopra 2019-10 [...] tab, PO, l Tablet 06:48: Daily, # Secor 00 60 tab, 1 Refill(s) Trelegy 2019-10 [...] tab, PO, l Tablet 06:48: Daily, # Secor 00 60 tab, 1 Refill(s) Trelegy 2019-10 [...] l oral tablet 06:48: BID, # 180 Secor 00 tab, 1 Refill(s) amLODIPine 2019-10 Yes 10 mg = 1 Me moria 10 mg oral 2-06 tab, PO, l tablet 06:48: Daily, # Secor 00 90 tab, 0 Refill(s) escitalopra 2019-10 [...] tab, PO, l Tablet 06:48: Daily, # Secor 00 60 tab, 1 Refill(s) Trelegy 2019-10 [...] l oral tablet 06:48: BID, # 180 Secor 00 tab, 1 Refill(s) amLODIPine 2019-10 Yes [...] tab, PO, l Tablet 06:48: Daily, # Secor 00 60 tab, 1 Refill(s) Trelegy 2019-10 [...] tab, PO, l tablet 06:48: Daily, # Secor 00 90 tab, 0 Refill(s) escitalopra 2019-10 [...] l oral tablet 06:48: BID, # 180 Secor 00 tab, 1 Refill(s) amLODIPine 2019-10 Yes [...] tab, PO, l Tablet 06:48: Daily, # Secor 00 60 tab, 1 Refill(s) Trelegy 2019-10 [...] tab, PO, l tablet 06:48: Daily, # Secor 00 90 tab, 0 Refill(s) escitalopra 2019-10 [...] tab, PO, l Tablet 06:48: Daily, # Secor 00 60 tab, 1 Refill(s) Trelegy 2019-10 [...] l oral tablet 06:48: BID, # 180 Secor 00 tab, 1 Refill(s) amLODIPine 2019-10 Yes 10 mg = 1 Me moria 10 mg oral 2-06 tab, PO, l tablet 06:48: Daily, # Secor 00 90 tab, 0 Refill(s) escitalopra 2019-10 [...] tab, PO, l Tablet 06:48: Daily, # Secor 00 60 tab, 1 Refill(s) Trelegy 2019-10 [...] l oral tablet 06:48: BID, # 180 Secor 00 tab, 1 Refill(s) Oxycodone 2019-10 No Notes: Memori a Hydrochlori 2-06 (Same as: l de 1 MG/ML 06:48: 'Roxicodon H ermann Oral 00 e) Solution Oxycodone 2019-10 No Notes: Memori a Hydrochlori [...] l oral tablet 06:48: BID, # 180 Secor 00 tab, 1 Refill(s) spironolact 2019-10 Yes 25 mg = 1 M emoria one 25 mg 2-06 tab, PO, l oral tablet 06:48: Daily, # He rmann 00 30 tab, 3 Refill(s) amLODIPine 2019-10 Yes 10 mg = 1 Me moria 10 mg oral 2-06 tab, PO, l tablet 06:48: Daily, # Secor 00 90 tab, 0 Refill(s) escitalopra 2019-10 [...] tab, PO, l Tablet 06:48: Daily, # Secor 00 60 tab, 1 Refill(s) Trelegy 2019-10 Yes = 1 Memoria Ellipta 2-06 inhalation l inhalation 06:48: , PO, Ajay n powder 00 Daily, PRN COPD, # 1 ea, 0 Refill(s) carvedilol 2020-1 Yes 6.25 mg = Me moria 6.25 mg 2-06 1 tab, PO, l oral tablet 06:48: BID, # 180 Secor 00 tab, 1 Refill(s) amLODIPine 2019-10 Yes [...] tab, PO, l Tablet 06:48: Daily, # Secor 00 60 tab, 1 Refill(s) amLODIPine 2019-10 Yes 10 mg = 1 Me moria 10 mg oral 2-06 tab, PO, l tablet 06:48: Daily, # Secor 00 90 tab, 0 Refill(s) Trelegy 2019-10 [...] tab, PO, l Tablet 06:48: Daily, # Secor 00 60 tab, 1 Refill(s) Trelegy 2019-10 [...] tab, PO, l Tablet 06:48: Daily, # Secor 00 60 tab, 1 Refill(s) Trelegy 2019-10 [...] Blood Glucose Results, Start date: 09/05/20 0:47:00 SUPERVISOR TYPE DISK QUALITY CONTROL, Duration: 30 day, Stop date: 10/05/20 0:46:00 SUPERVISOR TYPE DISK QUALITY CONTROL, 0 Glucagon 2020-1 No 1 mg, Memoria 2-06 Route: IM, l 06:47: Drug form: PDR/INJ, PRN, Dosing Weight 104.545, kg, PRN Blood Glucose Results, Start date: 09/05/20 0:47:00 SUPERVISOR TYPE DISK QUALITY CONTROL, Duration: 30 day, Stop date: 10/05/20 0:46:00 SUPERVISOR TYPE DISK QUALITY CONTROL, 0 sennosides, 2019-10 No Notes: Jose Francisco zhang LONG-TERM 2-06 (Same as: l 06:47: Senokot) POLYETHYLEN [...] Total Volume: 1,000, Start date: 09/05/20 0:47:00 SUPERVISOR TYPE DISK QUALITY CONTROL, Duration: 1 day, Stop date: 09/06/20 0:46:00 SUPERVISOR TYPE DISK QUALITY CONTROL, 1.97, m2, 0 Tums 2019-10 No Notes: [...] 0.65% 2-06 (Same as: l solution 06:47: Flowood, Secor 00 Deep Sea Nasal [place]). 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 date: 09/05/20 0:47:00 SUPERVISOR TYPE DISK QUALITY CONTROL, Duration: 30 day, Stop date: 10/05/20 0:46:00 SUPERVISOR TYPE DISK QUALITY CONTROL, 0 Glucagon 2019-10 No 1 mg, Memoria 11-06 Route: IM, l 06:47: Drug form: PDR/INJ, PRN, Dosing Weight 104.545, kg, PRN Blood Glucose Results, Start date: 09/05/20 0:47:00 SUPERVISOR TYPE DISK QUALITY CONTROL, Duration: 30 day, Stop date: 10/05/20 0:46:00 SUPERVISOR TYPE DISK QUALITY CONTROL, 0 sennosides, 2019-10 No Notes: Jose Francisco zhang LONG-TERM 2-06 (Same as: l 06:47: Senokot) POLYETHYLEN [...] Total Volume: 1,000, Start date: 09/05/20 0:47:00 SUPERVISOR TYPE DISK QUALITY CONTROL, Duration: 1 day, Stop date: 09/06/20 0:46:00 SUPERVISOR TYPE DISK QUALITY CONTROL, 1.97, m2, 0 Tums 2019-10 No Notes: [...] 0.65% 2- (Same as: l solution 06:47: Flowood, Raul Deep Sea Nasal [place]). 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 date: 09/05/20 0:47:00 SUPERVISOR TYPE DISK QUALITY CONTROL, Duration: 30 day, Stop date: 10/05/20 0:46:00 SUPERVISOR TYPE DISK QUALITY CONTROL, 0 Glucagon 2019-10 No 1 mg, Memoria 2-06 Route: IM, l 06:47: Drug form: Secor PDR/INJ, PRN, Dosing Weight 104.545, kg, PRN Blood Glucose Results, Start date: 09/05/20 0:47:00 SUPERVISOR TYPE DISK QUALITY CONTROL, Duration: 30 day, Stop date: 10/05/20 0:46:00 SUPERVISOR TYPE DISK QUALITY CONTROL, 0 sennosides, 2019-10 No Notes: Jose Francisco zhang LONG-TERM 2-06 (Same as: l 06:47: Senokot) POLYETHYLEN [...] Total Volume: 1,000, Start date: 09/05/20 0:47:00 SUPERVISOR TYPE DISK QUALITY CONTROL, Duration: 1 day, Stop date: 09/06/20 0:46:00 SUPERVISOR TYPE DISK QUALITY CONTROL, 1.97, m2, 0 Tums 2019-10 No Notes: [...] 0.65% 2-06 (Same as: l solution 06:47: Flowood, Raul 00 Deep Sea Nasal [place]). Tessalon 2019-10 No Notes: Memoria Perles - (Same As: l 06:47: Tessalon Perles) "Do Not Crush" Guaifenesin 2019-10 No Notes: Jose Francisco zhang - (Same as: l 06:47: Organidin Raul 00 NR) Blistex 2019-10 No Notes: Memoria topical 11-06 Same as: l ointment 06:47: Blistex Ajay n 00 Albuterol 2019-10 No Notes: SEE Me moria 0.83 MG/ML - RT l Inhalant 06:47: DOCUMENTAT Her ivory Solution 00 ION (Same as: Proventil) Dextrose 2019-10 No 12.5 gm, Memor ia 50% Syringe 11-06 25 mL, l ([id number]) 06:47: Route: IVP, Drug Form: INJ, Dosing Weight 104.545, kg, PRN, PRN Blood Glucose Results, Start date: 09/05/20 0:47:00 SUPERVISOR TYPE DISK QUALITY CONTROL, Duration: 30 day, Stop date: 10/05/20 0:46:00 SUPERVISOR TYPE DISK QUALITY CONTROL, 0 Glucagon 2019-10 No 1 mg, Memoria 11-06 Route: IM, l 06:47: Drug form: Secor 00 PDR/INJ, PRN, Dosing Weight 104.545, kg, PRN Blood Glucose Results, Start date: 09/05/20 0:47:00 SUPERVISOR TYPE DISK QUALITY CONTROL, Duration: 30 day, Stop date: 10/05/20 0:46:00 SUPERVISOR TYPE DISK QUALITY CONTROL, 0 sennosides, 2019-10 No Notes: Jose Francisco zhang LONG-TERM 2- (Same as: l 06:47: Senokot) POLYETHYLEN [...] Total Volume: 1,000, Start date: 09/05/20 0:47:00 SUPERVISOR TYPE DISK QUALITY CONTROL, Duration: 1 day, Stop date: 09/06/20 0:46:00 SUPERVISOR TYPE DISK QUALITY CONTROL, 1.97, m2, 0 Tums 2019-10 No Notes: [...] 0.65% 2- (Same as: l solution 06:47: Flowood, Raul 00 Deep Sea Nasal [place]). 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 date: 09/05/20 0:47:00 SUPERVISOR TYPE DISK QUALITY CONTROL, Duration: 30 day, Stop date: 10/05/20 0:46:00 SUPERVISOR TYPE DISK QUALITY CONTROL, 0 Glucagon 2019-10 No 1 mg, Memoria 2-06 Route: IM, l 06:47: Drug form: Secor PDR/INJ, PRN, Dosing Weight 104.545, kg, PRN Blood Glucose Results, Start date: 09/05/20 0:47:00 SUPERVISOR TYPE DISK QUALITY CONTROL, Duration: 30 day, Stop date: 10/05/20 0:46:00 SUPERVISOR TYPE DISK QUALITY CONTROL, 0 sennosides, 2019-10 No Notes: Jose Francisco zhang LONG-TERM 2-06 (Same as: l 06:47: Senokot) POLYETHYLEN [...] Total Volume: 1,000, Start date: 09/05/20 0:47:00 SUPERVISOR TYPE DISK QUALITY CONTROL, Duration: 1 day, Stop date: 09/06/20 0:46:00 SUPERVISOR TYPE DISK QUALITY CONTROL, 1.97, m2, 0 Tums 2019-10 No Notes: [...] 0.65% - (Same as: l solution 06:47: Flowood, Raul 00 Deep Sea Nasal [place]). Tessalon 2019-10 No Notes: Memoria Perles 2- [...] Blood Glucose Results, Start date: 09/05/20 0:47:00 SUPERVISOR TYPE DISK QUALITY CONTROL, Duration: 30 day, Stop date: 10/05/20 0:46:00 SUPERVISOR TYPE DISK QUALITY CONTROL, 0 Glucagon 2019-10 No 1 mg, Memoria 11-06 Route: IM, l 06:47: Drug form: PDR/INJ, PRN, Dosing Weight 104.545, kg, PRN Blood Glucose Results, Start date: 09/05/20 0:47:00 SUPERVISOR TYPE DISK QUALITY CONTROL, Duration: 30 day, Stop date: 10/05/20 0:46:00 SUPERVISOR TYPE DISK QUALITY CONTROL, 0 sennosides, 2019-10 No Notes: Jose Francisco zhang LONG-TERM 2-06 (Same as: l 06:47: Senokot) POLYETHYLEN [...] Total Volume: 1,000, Start date: 09/05/20 0:47:00 SUPERVISOR TYPE DISK QUALITY CONTROL, Duration: 1 day, Stop date: 09/06/20 0:46:00 SUPERVISOR TYPE DISK QUALITY CONTROL, 1.97, m2, 0 Tums 2019-10 No Notes: [...] 0.65% 2- (Same as: l solution 06:47: Flowood, Raul 00 Deep Sea Nasal [place]). 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 date: 09/05/20 0:47:00 SUPERVISOR TYPE DISK QUALITY CONTROL, Duration: 30 day, Stop date: 10/05/20 0:46:00 SUPERVISOR TYPE DISK QUALITY CONTROL, 0 Glucagon 2019-10 No 1 mg, Memoria 2-06 Route: IM, l 06:47: Drug form: PDR/INJ, PRN, Dosing Weight 104.545, kg, PRN Blood Glucose Results, Start date: 09/05/20 0:47:00 SUPERVISOR TYPE DISK QUALITY CONTROL, Duration: 30 day, Stop date: 10/05/20 0:46:00 SUPERVISOR TYPE DISK QUALITY CONTROL, 0 sennosides, 2019-10 No Notes: Jose Francisco zhang LONG-TERM 2-06 (Same as: l 06:47: Senokot) POLYETHYLEN [...] Total Volume: 1,000, Start date: 09/05/20 0:47:00 SUPERVISOR TYPE DISK QUALITY CONTROL, Duration: 1 day, Stop date: 09/06/20 0:46:00 SUPERVISOR TYPE DISK QUALITY CONTROL, 1.97, m2, 0 Tums 2019-10 No Notes: [...] 0.65% 2- (Same as: l solution 06:47: Flowood, Secor 00 Deep Sea Nasal [place]). Tessalon 2019-10 No Notes: Memoria Perles 2- [...] Blood Glucose Results, Start date: 09/05/20 0:47:00 SUPERVISOR TYPE DISK QUALITY CONTROL, Duration: 30 day, Stop date: 10/05/20 0:46:00 SUPERVISOR TYPE DISK QUALITY CONTROL, 0 Glucagon 2019-10 No 1 mg, Memoria 11-06 Route: IM, l 06:47: Drug form: PDR/INJ, PRN, Dosing Weight 104.545, kg, PRN Blood Glucose Results, Start date: 09/05/20 0:47:00 SUPERVISOR TYPE DISK QUALITY CONTROL, Duration: 30 day, Stop date: 10/05/20 0:46:00 SUPERVISOR TYPE DISK QUALITY CONTROL, 0 sennosides, 2019-10 No Notes: Jose Francisco zhang LONG-TERM 2-06 (Same as: l 06:47: Senokot) POLYETHYLEN [...] Total Volume: 1,000, Start date: 09/05/20 0:47:00 SUPERVISOR TYPE DISK QUALITY CONTROL, Duration: 1 day, Stop date: 09/06/20 0:46:00 SUPERVISOR TYPE DISK QUALITY CONTROL, 1.97, m2, 0 Tums 2019-10 No Notes: [...] 0.65% - (Same as: l solution 06:47: Flowood, Secor Deep Sea Nasal [place]). Tessalon 2019-10 No Notes: Memoria Perles 2- (Same As: l 06:47: Tessalon Perles) "Do Not Crush" Guaifenesin 2019-10 No Notes: Jose Francisco zhang 2-06 (Same as: l 06:47: Organidin Secor 00 NR) Blistex 2019-10 No Notes: Memoria [...] Blood Glucose Results, Start date: 09/05/20 0:47:00 SUPERVISOR TYPE DISK QUALITY CONTROL, Duration: 30 day, Stop date: 10/05/20 0:46:00 SUPERVISOR TYPE DISK QUALITY CONTROL, 0 Glucagon 2019-10 No 1 mg, Memoria 2-06 Route: IM, l 06:47: Drug form: PDR/INJ, PRN, Dosing Weight 104.545, kg, PRN Blood Glucose Results, Start date: 09/05/20 0:47:00 SUPERVISOR TYPE DISK QUALITY CONTROL, Duration: 30 day, Stop date: 10/05/20 0:46:00 SUPERVISOR TYPE DISK QUALITY CONTROL, 0 sennosides, 2019-10 No Notes: Jose Francisco zhang LONG-TERM 2-06 (Same as: l 06:47: Senokot) POLYETHYLEN [...] Total Volume: 1,000, Start date: 09/05/20 0:47:00 SUPERVISOR TYPE DISK QUALITY CONTROL, Duration: 1 day, Stop date: 09/06/20 0:46:00 SUPERVISOR TYPE DISK QUALITY CONTROL, 1.97, m2, 0 Tums 2019-10 No Notes: [...] 0.65% 2- (Same as: l solution 06:47: Flow[place], Secor 00 Deep Sea Nasal [place]). Tessalon 2019-10 No Notes: Memoria Perles 2- [...] Blood Glucose Results, Start date: 09/05/20 0:47:00 SUPERVISOR TYPE DISK QUALITY CONTROL, Duration: 30 day, Stop date: 10/05/20 0:46:00 SUPERVISOR TYPE DISK QUALITY CONTROL, 0 Glucagon 2019-10 No 1 mg, Memoria 11-06 Route: IM, l 06:47: Drug form: PDR/INJ, PRN, Dosing Weight 104.545, kg, PRN Blood Glucose Results, Start date: 09/05/20 0:47:00 SUPERVISOR TYPE DISK QUALITY CONTROL, Duration: 30 day, Stop date: 10/05/20 0:46:00 SUPERVISOR TYPE DISK QUALITY CONTROL, 0 sennosides, 2019-10 No Notes: Jose Francisco zhang LONG-TERM 2-06 (Same as: l 06:47: Senokot) POLYETHYLEN [...] Total Volume: 1,000, Start date: 09/05/20 0:47:00 SUPERVISOR TYPE DISK QUALITY CONTROL, Duration: 1 day, Stop date: 09/06/20 0:46:00 SUPERVISOR TYPE DISK QUALITY CONTROL, 1.97, m2, 0 Tums 2019-10 No Notes: Memoria 2- (Same As: l 06:47: Tums) Calcium Carbonate 500 mg = 200 mg elemental calcium Dose = mg calcium carbonate ( mg elemental calcium) Simethicone 2019-10 No Notes: Jose Francisco zhang 2-06 (Same as: l 06:47: Mylicon) Lubricant 2019-10 No Notes: Memori a Eye Drops - (Same as: l 06:47: Aquasite) Raul 00 Nasal Moist 2019-10 No Notes: Jose Francisco zhang 0.65% 11-06 (Same as: l solution 06:47: [place], Secor 00 Deep Sea Nasal [place]). Tessalon 2019-10 No Notes: Memoria Perles - (Same As: l 06:47: Tessalon Raul 00 [...] Blood Glucose Results, Start date: 09/05/20 0:47:00 SUPERVISOR TYPE DISK QUALITY CONTROL, Duration: 30 day, Stop date: 10/05/20 0:46:00 SUPERVISOR TYPE DISK QUALITY CONTROL, 0 Glucagon 2019-10 No 1 mg, Memoria 2 Route: IM, l 06:47: Drug form: Secor 00 PDR/INJ, PRN, Dosing Weight 104.545, kg, PRN Blood Glucose Results, Start date: 09/05/20 0:47:00 SUPERVISOR TYPE DISK QUALITY CONTROL, Duration: 30 day, Stop date: 10/05/20 0:46:00 SUPERVISOR TYPE DISK QUALITY CONTROL, 0 sennosides, 2019-10 No Notes: Jose Francisco zhang LONG-TERM 2-06 (Same as: l 06:47: Senokot) POLYETHYLEN [...] Total Volume: 1,000, Start date: 09/05/20 0:47:00 SUPERVISOR TYPE DISK QUALITY CONTROL, Duration: 1 day, Stop date: 09/06/20 0:46:00 SUPERVISOR TYPE DISK QUALITY CONTROL, 1.97, m2, 0 Tums 2019-10 No Notes: [...] 0.65% 2- (Same as: l solution 06:47: Flow[place], Raul 00 Deep Sea Nasal [place]). Tessalon 2019-10 No Notes: Memoria Perles 2- (Same As: l 06:47: Tessalon Perles) "Do Not Crush" Guaifenesin 2019-10 No Notes: Jose Francisco zhang 2-06 (Same as: l 06:47: Organidin NR) Blistex 2019-10 No Notes: Memoria topical 2- Same as: l ointment 06:47: Blistex Ajay n 00 Albuterol 2019-10 No Notes: SEE Me moria 0.83 MG/ML 2-06 RT l Inhalant 06:47: DOCUMENTAT Her viory Solution 00 ION (Same as: Proventil) Dextrose 2019-10 No 12.5 gm, Memor ia 50% Syringe 2-06 25 mL, l (D50W) 06:47: Route: IVP, Drug Form: INJ, Dosing Weight 104.545, kg, PRN, PRN Blood Glucose Results, Start date: 09/05/20 0:47:00 SUPERVISOR TYPE DISK QUALITY CONTROL, Duration: 30 day, Stop date: 10/05/20 0:46:00 SUPERVISOR TYPE DISK QUALITY CONTROL, 0 Glucagon 2019-10 No 1 mg, Memoria 11-06 Route: IM, l 06:47: Drug form: Raul 00 PDR/INJ, PRN, Dosing Weight 104.545, kg, PRN Blood Glucose Results, Start date: 09/05/20 0:47:00 SUPERVISOR TYPE DISK QUALITY CONTROL, Duration: 30 day, Stop date: 10/05/20 0:46:00 SUPERVISOR TYPE DISK QUALITY CONTROL, 0 sennosides, 2019-10 No Notes: Jose Francisco zhang LONG-TERM 2-06 (Same as: l 06:47: Senokot) POLYETHYLEN [...] Total Volume: 1,000, Start date: 09/05/20 0:47:00 SUPERVISOR TYPE DISK QUALITY CONTROL, Duration: 1 day, Stop date: 09/06/20 0:46:00 SUPERVISOR TYPE DISK QUALITY CONTROL, 1.97, m2, 0 Tums 2019-10 No Notes: Memoria 2-06 (Same As: l 06:47: Tums) Calcium Carbonate 500 mg = 200 mg elemental calcium Dose = mg calcium carbonate ( mg elemental calcium) Simethicone 2019-10 No Notes: Jose Francisco zhang 2-06 (Same as: l 06:47: Mylicon) Lubricant 2019-10 No Notes: Memori a Eye Drops 2-06 (Same as: l 06:47: Aquasite) Secor 00 Nasal Moist 2019-10 No Notes: Jose Francisco zhang 0.65% 2-06 (Same as: l solution 06:47: Flow[place], Secor Deep Sea Nasal [place]). Tessalon 2019-10 No Notes: Memoria Perles 2-06 (Same As: l 06:47: Tessalon Raul 00 Perles) "Do Not Crush" Guaifenesin 2019-10 No Notes: Jose Francisco zhang 2-06 (Same as: l 06:47: Organidin Secor 00 NR) Blistex 2019-10 No Notes: Memoria topical 2-06 Same as: l ointment 06:47: Blistex Ajay n 00 Albuterol 2019-10 No Notes: SEE Me moria 0.83 MG/ML 2-06 RT l Inhalant 06:47: DOCUMENTAT Her ivory Solution 00 ION (Same as: Proventil) Dextrose 2019-10 No 12.5 gm, Memor ia 50% Syringe 2-06 25 mL, l (D50W) 06:47: Route: Secor 00 IVP, Drug Form: INJ, Dosing Weight 104.545, kg, PRN, PRN Blood Glucose Results, Start date: 09/05/20 0:47:00 SUPERVISOR TYPE DISK QUALITY CONTROL, Duration: 30 day, Stop date: 10/05/20 0:46:00 SUPERVISOR TYPE DISK QUALITY CONTROL, 0 Glucagon 2019-10 No 1 mg, Memoria 11-06 Route: IM, l 06:47: Drug form: Secor 00 PDR/INJ, PRN, Dosing Weight 104.545, kg, PRN Blood Glucose Results, Start date: 09/05/20 0:47:00 SUPERVISOR TYPE DISK QUALITY CONTROL, Duration: 30 day, Stop date: 10/05/20 0:46:00 SUPERVISOR TYPE DISK QUALITY CONTROL, 0 sennosides, 2019-10 No Notes: Jose Francisco zhang LONG-TERM 2-06 (Same as: l 06:47: Senokot) POLYETHYLEN [...] Total Volume: 1,000, Start date: 09/05/20 0:47:00 SUPERVISOR TYPE DISK QUALITY CONTROL, Duration: 1 day, Stop date: 09/06/20 0:46:00 SUPERVISOR TYPE DISK QUALITY CONTROL, 1.97, m2, 0 Tums 2019-10 No Notes: [...] 0.65% 2- (Same as: l solution 06:47: [place], Deep Sea Nasal [place]). 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 date: 09/05/20 0:47:00 SUPERVISOR TYPE DISK QUALITY CONTROL, Duration: 30 day, Stop date: 10/05/20 0:46:00 SUPERVISOR TYPE DISK QUALITY CONTROL, 0 Glucagon 2019-10 No 1 mg, Memoria 2- Route: IM, l 06:47: Drug form: PDR/INJ, PRN, Dosing Weight 104.545, kg, PRN Blood Glucose Results, Start date: 09/05/20 0:47:00 SUPERVISOR TYPE DISK QUALITY CONTROL, Duration: 30 day, Stop date: 10/05/20 0:46:00 SUPERVISOR TYPE DISK QUALITY CONTROL, 0 sennosides, 2019-10 No Notes: Jose Francisco zhang LONG-TERM 2-06 (Same as: l 06:47: Senokot) POLYETHYLEN [...] Total Volume: 1,000, Start date: 09/05/20 0:47:00 SUPERVISOR TYPE DISK QUALITY CONTROL, Duration: 1 day, Stop date: 09/06/20 0:46:00 SUPERVISOR TYPE DISK QUALITY CONTROL, 1.97, m2, 0 Tums 2019-10 No Notes: [...] 0.65% 2-06 (Same as: l solution 06:47: Flowood, Raul 00 Deep Sea Nasal [place]). Tessalon 2019-10 No Notes: Memoria Perles 2-06 (Same As: l 06:47: Tessalon Perles) "Do Not Crush" Guaifenesin 2019-10 No Notes: Jose Francisco zhang 2-06 (Same as: l 06:47: Organidin Secor 00 NR) Blistex 2019-10 No Notes: Memoria [...] Blood Glucose Results, Start date: 09/05/20 0:47:00 SUPERVISOR TYPE DISK QUALITY CONTROL, Duration: 30 day, Stop date: 10/05/20 0:46:00 SUPERVISOR TYPE DISK QUALITY CONTROL, 0 Glucagon 2019-10 No 1 mg, Memoria 2 Route: IM, l 06:47: Drug form: PDR/INJ, PRN, Dosing Weight 104.545, kg, PRN Blood Glucose Results, Start date: 09/05/20 0:47:00 SUPERVISOR TYPE DISK QUALITY CONTROL, Duration: 30 day, Stop date: 10/05/20 0:46:00 SUPERVISOR TYPE DISK QUALITY CONTROL, 0 sennosides, 2019-10 No Notes: Jose Francisco zhang LONG-TERM 2-06 (Same as: l 06:47: Senokot) POLYETHYLEN [...] Total Volume: 1,000, Start date: 09/05/20 0:47:00 SUPERVISOR TYPE DISK QUALITY CONTROL, Duration: 1 day, Stop date: 09/06/20 0:46:00 SUPERVISOR TYPE DISK QUALITY CONTROL, 1.97, m2, 0 Tums 2019-10 No Notes: [...] 0.65% 2- (Same as: l solution 06:47: [place], Secor 00 Deep Sea Nasal [place]). Tessalon 2019-10 No Notes: Memoria Perles - (Same As: l 06:47: Tessalon Perles) "Do Not Crush" Guaifenesin 2019-10 No Notes: Jose Francisco zhang 2-06 (Same as: l 06:47: Organidin NR) Dextrose 2019-10 No 12.5 gm, Memor ia 50% Syringe - 25 mL, l (D50W) 06:47: Route: IVP, Drug Form: INJ, Dosing Weight 104.545, kg, PRN, PRN Blood Glucose Results, Start date: 09/05/20 0:47:00 SUPERVISOR TYPE DISK QUALITY CONTROL, Duration: 30 day, Stop date: 10/05/20 0:46:00 SUPERVISOR TYPE DISK QUALITY CONTROL, 0 Glucagon 2019-10 No 1 mg, Memoria 11-06 Route: IM, l 06:47: Drug form: PDR/INJ, PRN, Dosing Weight 104.545, kg, PRN Blood Glucose Results, Start date: 09/05/20 0:47:00 SUPERVISOR TYPE DISK QUALITY CONTROL, Duration: 30 day, Stop date: 10/05/20 0:46:00 SUPERVISOR TYPE DISK QUALITY CONTROL, 0 sennosides, 2019-10 No Notes: Jose Francisco zhang LONG-TERM 2-06 (Same as: l 06:47: Senokot) POLYETHYLEN 2019-10 No Notes: Jose Francisco zhang E GLYCOL 2-06 Dissolve l 3350 06:47: in 8 oz of water or juice. (Same as: Miralax) Ondansetron 2019-10 No Notes: Jose Francisco zhang 2-06 (Same as: l 06:47: Zofran) Raul 00 MEDICATION WASTE Product Size: 4 mg Product Wasted: ___ mg Melatonin 2019- No Notes: Memori a 2-06 (Same as: l 06:47: Melatonin) Secor 00 Blistex 2019-10 No Notes: Memoria topical 2-06 Same as: l ointment 06:47: Blistex Ajay n 00 LR IV 1,000 2019-10 No 1,000 mL, M emoria mL 2-06 Rate: 100 l 06:47: ml/hr, Secor 00 Infuse over: 10 hr, Route: IV, Dosing Weight 104.545 kg, Total Volume: 1,000, Start date: 09/05/20 0:47:00 SUPERVISOR TYPE DISK QUALITY CONTROL, Duration: 1 day, Stop date: 09/06/20 0:46:00 SUPERVISOR TYPE DISK QUALITY CONTROL, 1.97, m2, 0 Tums 2019-10 No Notes: Memoria 2-06 (Same As: l 06:47: Tums) Secor Calcium Carbonate 500 mg = 200 mg [...] 0.65% 2-06 (Same as: l solution 06:47: Flow[place], Secor 00 Deep Sea Nasal [place]). Tessalon 2019-10 No Notes: Memoria Perles 2-06 (Same As: l 06:47: Tessalon Secor 00 Perles) "Do Not Crush" Guaifenesin 2019-10 [...] zhang 2-06 (Same as: l 06:45: Apresoline Secor 00 ) Push over 5 minutes Hydralazine 2019-10 No Notes: Jose Francisco zhang 2-06 (Same as: l 06:45: Apresoline Secor 00 ) Push over 5 minutes Hydralazine 2019-10 No Notes: Jose Francisco zhang 2-06 (Same as: l 06:45: Apresoline Raul 00 ) Push over 5 minutes Hydralazine 2019-10 No Notes: Jose Francisco zhang 2-06 (Same as: l 06:45: Apresoline Secor 00 ) Push over 5 minutes Hydralazine 2019-10 No Notes: Jose Francisco zhang 2-06 (Same as: l 06:45: Apresoline Secor 00 ) Push over 5 minutes Hydralazine 2019-10 No Notes: Jose Francisco zhang 2-06 (Same as: l 06:45: Apresoline Secor 00 ) Push over 5 minutes Hydralazine 2019-10 No Notes: Jose Francisco zhang 2-06 (Same as: l 06:45: Apresoline Secor 00 ) Push over 5 minutes Hydralazine 2019-10 No Notes: Jose Francisco zhang 2-06 (Same as: l 06:45: Apresoline Secor 00 ) Push over 5 minutes Hydralazine 2019-10 No Notes: Jose Francisco zhang 2-06 (Same as: l 06:45: Apresoline Raul 00 ) Push over 5 minutes Hydralazine 2019-10 No Notes: Jose Francisco zhang 2-06 (Same as: l 06:45: Apresoline Raul 00 ) Push over 5 minutes Hydralazine 2019-10 No Notes: Jose Francisco zhang 2-06 (Same as: l 06:45: Apresoline Secor 00 ) Push over 5 minutes Hydralazine 2019-10 No Notes: Jose Francisco zhang 2-06 (Same as: l 06:45: Apresoline Secor 00 ) Push over 5 minutes Hydralazine 2019-10 No Notes: Jose Francisco zhang 2-06 (Same as: l 06:45: Apresoline Secor 00 ) Push over 5 minutes Hydralazine [...] kg, ONCE, STAT, Start date: 09/04/20 22:07:00 SUPERVISOR TYPE DISK QUALITY CONTROL, Stop date: 09/04/20 22:07:00 SUPERVISOR TYPE DISK QUALITY CONTROL Acetaminoph 2019-10 No 1 tab, Jose Francisco zhang en 325 MG / 2-06 Route: PO, l Hydrocodone 04:07: Drug Form: Raul Bitartrate 00 TAB, 5 MG Oral Dosing Tablet Weight 104.545, kg, ONCE, STAT, Start date: 09/04/20 22:07:00 SUPERVISOR TYPE DISK QUALITY CONTROL, Stop date: 09/04/20 22:07:00 SUPERVISOR TYPE DISK QUALITY CONTROL Acetaminoph 2019-10 No 1 tab, Jose Francisco zhang en 325 MG / 2-06 Route: PO, l Hydrocodone 04:07: Drug Form: Secor Bitartrate 00 TAB, 5 MG Oral Dosing Tablet Weight 104.545, kg, ONCE, STAT, Start date: 09/04/20 22:07:00 SUPERVISOR TYPE DISK QUALITY CONTROL, Stop date: 09/04/20 22:07:00 SUPERVISOR TYPE DISK QUALITY CONTROL Acetaminoph 2019-10 No 1 tab, Jose Francisco zhang en 325 MG / 2-06 Route: PO, l Hydrocodone 04:07: Drug Form: Secor Bitartrate 00 TAB, 5 MG Oral Dosing Tablet Weight 104.545, kg, ONCE, STAT, Start date: 09/04/20 22:07:00 SUPERVISOR TYPE DISK QUALITY CONTROL, Stop date: 09/04/20 22:07:00 SUPERVISOR TYPE DISK QUALITY CONTROL Acetaminoph 2019-10 No 1 tab, Jose Francisco zhang en 325 MG / 2-06 Route: PO, l Hydrocodone 04:07: Drug Form: Raul Bitartrate 00 TAB, 5 MG Oral Dosing Tablet Weight 104.545, kg, ONCE, STAT, Start date: 09/04/20 22:07:00 SUPERVISOR TYPE DISK QUALITY CONTROL, Stop date: 09/04/20 22:07:00 SUPERVISOR TYPE DISK QUALITY CONTROL Acetaminoph 2019-10 No 1 tab, Jose Francisco zhang en 325 MG / 2-06 Route: PO, l Hydrocodone 04:07: Drug Form: Secor Bitartrate 00 TAB, 5 MG Oral Dosing Tablet Weight 104.545, kg, ONCE, STAT, Start date: 09/04/20 22:07:00 SUPERVISOR TYPE DISK QUALITY CONTROL, Stop date: 09/04/20 22:07:00 SUPERVISOR TYPE DISK QUALITY CONTROL Acetaminoph 2019-10 No 1 tab, Jose Francisco zhang en 325 MG / 2-06 Route: PO, l Hydrocodone 04:07: Drug Form: Raul Bitartrate 00 TAB, 5 MG Oral Dosing Tablet Weight 104.545, kg, ONCE, STAT, Start date: 09/04/20 22:07:00 SUPERVISOR TYPE DISK QUALITY CONTROL, Stop date: 09/04/20 22:07:00 SUPERVISOR TYPE DISK QUALITY CONTROL Acetaminoph 2019-10 No 1 tab, Jose Francisco zhang en 325 MG / 2-06 Route: PO, l Hydrocodone 04:07: Drug Form: Secor Bitartrate 00 TAB, 5 MG Oral Dosing Tablet Weight 104.545, kg, ONCE, STAT, Start date: 09/04/20 22:07:00 SUPERVISOR TYPE DISK QUALITY CONTROL, Stop date: 09/04/20 22:07:00 SUPERVISOR TYPE DISK QUALITY CONTROL Acetaminoph 2019-10 No 1 tab, Jose Francisco zhang en 325 MG / 2-06 Route: PO, l Hydrocodone 04:07: Drug Form: Raul Bitartrate 00 TAB, 5 MG Oral Dosing Tablet Weight 104.545, kg, ONCE, STAT, Start date: 09/04/20 22:07:00 SUPERVISOR TYPE DISK QUALITY CONTROL, Stop date: 09/04/20 22:07:00 SUPERVISOR TYPE DISK QUALITY CONTROL Acetaminoph 2019-10 No 1 tab, Jose Francisco zhang en 325 MG / 2-06 Route: PO, l Hydrocodone 04:07: Drug Form: Secor Bitartrate 00 TAB, 5 MG Oral Dosing Tablet Weight 104.545, kg, ONCE, STAT, Start date: 09/04/20 22:07:00 SUPERVISOR TYPE DISK QUALITY CONTROL, Stop date: 09/04/20 22:07:00 SUPERVISOR TYPE DISK QUALITY CONTROL Acetaminoph 2019-10 No 1 tab, Jose Francisco zhang en 325 MG / 2-06 Route: PO, l Hydrocodone 04:07: Drug Form: Raul Bitartrate 00 TAB, 5 MG Oral Dosing Tablet Weight 104.545, kg, ONCE, STAT, Start date: 09/04/20 22:07:00 SUPERVISOR TYPE DISK QUALITY CONTROL, Stop date: 09/04/20 22:07:00 SUPERVISOR TYPE DISK QUALITY CONTROL Acetaminoph 2019-10 No 1 tab, Jose Francisco zhang en 325 MG / 2-06 Route: PO, l Hydrocodone 04:07: Drug Form: Raul Bitartrate 00 TAB, 5 MG Oral Dosing Tablet Weight 104.545, kg, ONCE, STAT, Start date: 09/04/20 22:07:00 SUPERVISOR TYPE DISK QUALITY CONTROL, Stop date: 09/04/20 22:07:00 SUPERVISOR TYPE DISK QUALITY CONTROL Acetaminoph 2019-10 No 1 tab, Jose Francisco zhang en 325 MG / 2-06 Route: PO, l Hydrocodone 04:07: Drug Form: Raul Bitartrate 00 TAB, 5 MG Oral Dosing Tablet Weight 104.545, kg, ONCE, STAT, Start date: 09/04/20 22:07:00 SUPERVISOR TYPE DISK QUALITY CONTROL, Stop date: 09/04/20 22:07:00 SUPERVISOR TYPE DISK QUALITY CONTROL Acetaminoph 2019-10 No 1 tab, Jose Francisco zhang en 325 MG / 2-06 Route: PO, l Hydrocodone 04:07: Drug Form: Raul Bitartrate 00 TAB, 5 MG Oral Dosing Tablet Weight 104.545, kg, ONCE, STAT, Start date: 09/04/20 22:07:00 SUPERVISOR TYPE DISK QUALITY CONTROL, Stop date: 09/04/20 22:07:00 SUPERVISOR TYPE DISK QUALITY CONTROL Acetaminoph 2019-10 No 1 tab, Jose Francisco zhang en 325 MG / 2-06 Route: PO, l Hydrocodone 04:07: Drug Form: Secor Bitartrate 00 TAB, 5 MG Oral Dosing Tablet Weight 104.545, kg, ONCE, STAT, Start date: 09/04/20 22:07:00 SUPERVISOR TYPE DISK QUALITY CONTROL, Stop date: 09/04/20 22:07:00 SUPERVISOR TYPE DISK QUALITY CONTROL Acetaminoph 2019-10 No 1 tab, Jose Francisco zhang en 325 MG / 2-06 Route: PO, l Hydrocodone 04:07: Drug Form: Raul Bitartrate 00 TAB, 5 MG Oral Dosing Tablet Weight 104.545, kg, ONCE, STAT, Start date: 09/04/20 22:07:00 SUPERVISOR TYPE DISK QUALITY CONTROL, Stop date: 09/04/20 22:07:00 SUPERVISOR TYPE DISK QUALITY CONTROL HYDROcodone 2019- 2020- No 1{tbl} 1 tablet, [facility] -acetaminop 06-28 Oral, ity of hen (NORCO 20:30: 19:23 ONCE, 1 Carlos as 5) 5-325 mg 00 :00 dose, Mon Med ical tablet 1 06/28/20 at [facility] h tablet 1530, DIMITRIS metoprolol 2019-0 2020- [...] mg 06/28/20 at [facility] 1315, Routine amLODIPine 2020- No 5mg 5 mg, Unive rs (NORVASC) 06-28 Oral, ity of tablet 5 mg 18:15: 17:25 [place], [place] dose, [facility] 06/28/20 at [facility] 1315, DIMITRIS FENTanyl PF 2019- 2020- No 25ug 25 mcg, Un martha (SUBLIMAZE 06-28 Slow IV ity o f (PF)) 18:15: 17:30 Push, [place] injection 00 :00 ONCE, 1 Medical 25 mcg dose, [facility] 06/28/20 at 1315, STAT diphenoxyla 2020-0 Yes 1{tbl} Take 1 Un martha te-atropine 06-28 tablet by ity of (LOMOTIL) 17:14: mouth [place] 2.5-0.025 43 every 6 Medical mg tablet (six) Branch hours as needed. ALBUTEROL 2020-0 [facility] ity of INHALE [...] Unive rs SULFATE -28 ity of INHALE 12:14: [place] [address] Medical Branch diphenoxyla 2019-0 Yes 1{tbl} Take 1 Un martha te-atropine 9-28 tablet by ity of (LOMOTIL) 12:14: mouth [place] 2.5-0.025 43 every 6 Medical mg tablet (six) Branch hours as needed. ALBUTEROL 2020-0 Yes Inhale. Unive rs SULFATE -28 ity of INHALE 12:14: [place] [address] Medical Branch acetaminoph 2019-0 Yes 4647 1{tbl} Take 1 Un martha [...] Jessie nn 00 tab, 3 Refill(s), Pharmacy: [facility] #[id number], 149.86, cm, 05/25/20 13:41:00 CDT, Height, 95.455, kg, 05/25/20 13:41:00 CDT, Weight primidone 2020-0 Yes 50 mg = 1 Mem oria 50 mg oral 8-25 tab, PO, l tablet 19:03: BID, # 180 Jessie nn 00 tab, 3 Refill(s), Pharmacy: [facility] #[id number], 149.86, cm, 05/25/20 13:41:00 CDT, Height, 95.455, kg, 05/25/20 13:41:00 CDT, Weight primidone 2020-0 Yes 50 mg = 1 Mem oria 50 mg oral 8-25 tab, PO, l tablet 19:03: BID, # 180 Jessie nn 00 tab, 3 Refill(s), Pharmacy: [facility] #[id number], 149.86, cm, 05/25/20 13:41:00 [...] Jessie nn 00 tab, 3 Refill(s), Pharmacy: [facility] #[id number], 149.86, cm, 05/25/20 13:41:00 CDT, Height, 95.455, kg, 05/25/20 13:41:00 CDT, Weight primidone 2020-0 Yes 50 mg = 1 Mem oria 50 mg oral 8-25 tab, PO, l tablet 19:03: BID, # 180 Jessie nn 00 tab, 3 Refill(s), Pharmacy: [facility][id number], 149.86, cm, 05/25/20 13:41:00 CDT, Height, 95.455, kg, 05/25/20 13:41:00 CDT, Weight primidone 2020-0 Yes 50 mg = 1 Mem oria 50 mg oral 8-25 tab, PO, l tablet 19:03: BID, # 180 Jessie nn 00 tab, 3 Refill(s), Pharmacy: [facility] #[id number], 149.86, cm, 05/25/20 13:41:00 CDT, Height, 95.455, kg, 05/25/20 13:41:00 CDT, Weight primidone 2020-0 Yes 50 mg = 1 Mem oria 50 mg oral 8-25 tab, PO, l tablet 19:03: BID, # 180 Jessie nn 00 tab, 3 Refill(s), Pharmacy: [facility] #[id number], 149.86, cm, 05/25/20 13:41:00 CDT, Height, 95.455, kg, 05/25/20 13:41:00 CDT, Weight primidone 2020-0 Yes 50 mg = 1 Mem oria 50 mg oral 8-25 tab, PO, l tablet 19:03: BID, # 180 Jessie nn 00 tab, 3 Refill(s), Pharmacy: [facility] #[id number], 149.86, cm, 05/25/20 13:41:00 CDT, Height, 95.455, kg, 05/25/20 13:41:00 CDT, Weight primidone 2020-0 Yes 50 mg = 1 Mem oria 50 mg oral 8-25 tab, PO, l tablet 19:03: BID, # 180 Jessie nn 00 tab, 3 Refill(s), Pharmacy: [facility] #[id number], 149.86, cm, 05/25/20 13:41:00 CDT, Height, 95.455, kg, 05/25/20 13:41:00 CDT, Weight primidone 2020-0 Yes 50 mg = 1 Mem oria 50 mg oral 8-25 tab, PO, l tablet 19:03: BID, # 180 Jessie nn 00 tab, 3 Refill(s), Pharmacy: [facility] #[id number], 149.86, cm, 05/25/20 13:41:00 CDT, Height, 95.455, kg, 05/25/20 13:41:00 CDT, Weight primidone 2020-0 Yes 50 mg = 1 Mem oria 50 mg oral 8-25 tab, PO, l tablet 19:03: BID, # 180 Jessie nn 00 tab, 3 Refill(s), Pharmacy: [facility] #[id number], 149.86, cm, 05/25/20 13:41:00 CDT, Height, 95.455, kg, 05/25/20 13:41:00 CDT, Weight primidone 2020-0 Yes 50 mg = 1 Mem oria 50 mg oral 8-25 tab, PO, l tablet 19:03: BID, # 180 Jessie nn 00 tab, 3 Refill(s), Pharmacy: [facility][id number], 149.86, cm, 05/25/20 13:41:00 CDT, Height, 95.455, kg, 05/25/20 13:41:00 CDT, Weight primidone 2020-0 No 50 mg = 1 Mem oria 50 mg oral 6-25 tab, PO, l tablet 13:48: Bedtime, # Jessie nn 00 90 tab, 3 Refill(s), Pharmacy: [facility] #[id number], 149.86, cm, 03/24/20 9:12:00 CDT, Height, 90.909, kg, 03/24/20 9:12:00 CDT, Weight primidone 2020-0 No 50 mg = 1 Mem oria 50 mg oral 6-25 tab, PO, l tablet 13:48: Bedtime, # Jessie nn 00 90 tab, 3 Refill(s), Pharmacy: [facility] #[id number], 149.86, cm, 03/24/20 9:12:00 CDT, Height, 90.909, kg, 03/24/20 9:12:00 CDT, Weight primidone 2020-0 No 50 mg = 1 Mem oria 50 mg oral 6-25 tab, PO, l tablet 13:48: Bedtime, # Jessie nn 00 90 tab, 3 Refill(s), Pharmacy: [facility] #[id number], 149.86, cm, 03/24/20 9:12:00 CDT, Height, 90.909, kg, 03/24/20 9:12:00 CDT, Weight primidone 2020-0 No 50 mg = 1 Mem oria 50 mg oral 6-25 tab, PO, l tablet 13:48: Bedtime, # Jessie nn 00 90 tab, 3 Refill(s), Pharmacy: [facility] #[id number], 149.86, cm, 03/24/20 9:12:00 CDT, Height, 90.909, kg, 03/24/20 9:12:00 CDT, Weight primidone 2020-0 No 50 mg = 1 Mem oria 50 mg oral 6-25 tab, PO, l tablet 13:48: Bedtime, # Jessie nn 00 90 tab, 3 Refill(s), Pharmacy: [facility] #[id number], 149.86, cm, 03/24/20 9:12:00 CDT, Height, 90.909, kg, 03/24/20 9:12:00 CDT, Weight primidone 2020-0 No 50 mg = 1 Mem oria 50 mg oral 6-25 tab, PO, l tablet 13:48: Bedtime, # Jessie nn 00 90 tab, 3 Refill(s), Pharmacy: [facility] #[id number], 149.86, cm, 03/24/20 9:12:00 CDT, Height, 90.909, kg, 03/24/20 9:12:00 CDT, Weight primidone 2020-0 No 50 mg = 1 Mem oria 50 mg oral 6-25 tab, PO, l tablet 13:48: Bedtime, # Jessie nn 00 90 tab, 3 Refill(s), Pharmacy: [facility] #[id number], 149.86, cm, 03/24/20 9:12:00 CDT, Height, 90.909, kg, 03/24/20 9:12:00 CDT, Weight primidone 2020-0 No 50 mg = 1 Mem oria 50 mg oral 6-25 tab, PO, l tablet 13:48: Bedtime, # Jessie nn 00 90 tab, 3 Refill(s), Pharmacy: [facility] #[id number], 149.86, cm, 03/24/20 9:12:00 CDT, Height, 90.909, kg, 03/24/20 9:12:00 CDT, Weight primidone 2020-0 No 50 mg = 1 Mem oria 50 mg oral 6-25 tab, PO, l tablet 13:48: Bedtime, # Jessie nn 00 90 tab, 3 Refill(s), Pharmacy: [facility] #[id number], 149.86, cm, 03/24/20 9:12:00 CDT, Height, 90.909, kg, 03/24/20 9:12:00 CDT, Weight primidone 2020-0 No 50 mg = 1 Mem oria 50 mg oral 6-25 tab, PO, l tablet 13:48: Bedtime, # Jessie nn 00 90 tab, 3 Refill(s), Pharmacy: [facility] #[id number], 149.86, cm, 03/24/20 9:12:00 CDT, Height, 90.909, kg, 03/24/20 9:12:00 CDT, Weight primidone 2020-0 No 50 mg = 1 Mem oria 50 mg oral 6-25 tab, PO, l tablet 13:48: Bedtime, # Jessie nn 00 90 tab, 3 Refill(s), Pharmacy: [facility] #[id number], 149.86, cm, 03/24/20 9:12:00 CDT, Height, 90.909, kg, 03/24/20 9:12:00 CDT, Weight primidone 2020-0 No 50 mg = 1 Mem oria 50 mg oral 6-25 tab, PO, l tablet 13:48: Bedtime, # Jessie nn 00 90 tab, 3 Refill(s), Pharmacy: [facility] #[id number], 149.86, cm, 03/24/20 9:12:00 CDT, Height, 90.909, kg, 03/24/20 9:12:00 CDT, Weight primidone 2020-0 No 50 mg = 1 Mem oria 50 mg oral 6-25 tab, PO, l tablet 13:48: Bedtime, # Jessie nn 00 90 tab, 3 Refill(s), Pharmacy: [facility] #[id number], 149.86, cm, 03/24/20 9:12:00 CDT, Height, 90.909, kg, 03/24/20 9:12:00 CDT, Weight primidone 2020-0 No 50 mg = 1 Mem oria 50 mg oral 6-25 tab, PO, l tablet 13:48: Bedtime, # Jessie nn 00 90 tab, 3 Refill(s), Pharmacy: [facility] #[id number], 149.86, cm, 03/24/20 9:12:00 CDT, Height, 90.909, kg, 03/24/20 9:12:00 CDT, Weight primidone 2020-0 No 50 mg = 1 Mem oria 50 mg oral 6-25 tab, PO, l tablet 13:48: Bedtime, # Jessie nn 00 90 tab, 3 Refill(s), Pharmacy: [facility] #[id number], 149.86, cm, 03/24/20 9:12:00 CDT, Height, 90.909, kg, 03/24/20 9:12:00 CDT, Weight primidone 2020-0 No 50 mg = 1 Mem oria 50 mg oral 6-25 tab, PO, l tablet 13:48: Bedtime, # Jessie nn 00 90 tab, 3 Refill(s), Pharmacy: [facility] #[id number], 149.86, cm, 03/24/20 9:12:00 CDT, Height, 90.909, kg, 03/24/20 9:12:00 CDT, Weight donepezil 2020-0 Yes 10 mg = 1 Mem oria 10 mg oral 6-24 tab, PO, l tablet 14:32: Daily, # Raul 00 30 tab, 3 Refill(s), Pharmacy: [facility] #[id number], 149.86, cm, 03/24/20 9:12:00 CDT, Height, 90.909, kg, 03/24/20 9:12:00 CDT, Weight primidone 2020-0 No 50 mg = 1 Mem oria 50 mg oral 6-24 tab, PO, l tablet 14:32: Bedtime, X Jessie nn 30 day, # 30 tab, 3 Refill(s), Pharmacy: [facility] #[id number], 149.86, cm, 03/24/20 9:12:00 CDT, Height, 90.909, kg, 03/24/20 9:12:00 CDT, Weight donepezil 2020-0 Yes 10 mg = 1 Mem oria 10 mg oral 6-24 tab, PO, l tablet 14:32: Daily, # Secor 00 30 tab, 3 Refill(s), Pharmacy: [facility] #[id number], 149.86, cm, 03/24/20 9:12:00 CDT, Height, 90.909, kg, 03/24/20 9:12:00 CDT, Weight primidone 2020-0 No 50 mg = 1 Mem oria 50 mg oral 6-24 tab, PO, l tablet 14:32: Bedtime, X Jessie nn 30 day, # 30 tab, 3 Refill(s), Pharmacy: [facility] #[id number], 149.86, cm, 03/24/20 9:12:00 CDT, Height, 90.909, kg, 03/24/20 9:12:00 CDT, Weight donepezil 2020-0 Yes 10 mg = 1 Mem oria 10 mg oral 6-24 tab, PO, l tablet 14:32: Daily, # Raul 00 30 tab, 3 Refill(s), Pharmacy: [facility] #[id number], 149.86, cm, 03/24/20 9:12:00 CDT, Height, 90.909, kg, 03/24/20 9:12:00 CDT, Weight primidone 2020-0 No 50 mg = 1 Mem oria 50 mg oral 6-24 tab, PO, l tablet 14:32: Bedtime, X Jessie nn 30 day, # 30 tab, 3 Refill(s), Pharmacy: [facility] #[id number], 149.86, cm, 03/24/20 9:12:00 CDT, Height, 90.909, kg, 03/24/20 9:12:00 CDT, Weight donepezil 2020-0 Yes 10 mg = 1 Mem oria 10 mg oral 6-24 tab, PO, l tablet 14:32: Daily, # Raul 00 30 tab, 3 Refill(s), Pharmacy: [facility] #[id number], 149.86, cm, 03/24/20 9:12:00 CDT, Height, 90.909, kg, 03/24/20 9:12:00 CDT, Weight primidone 2020-0 No 50 mg = 1 Mem oria 50 mg oral 6-24 tab, PO, l tablet 14:32: Bedtime, X Jessie nn 30 day, # 30 tab, 3 Refill(s), Pharmacy: [facility] #[id number], 149.86, cm, 03/24/20 9:12:00 CDT, Height, 90.909, kg, 03/24/20 9:12:00 CDT, Weight donepezil 2020-0 Yes 10 mg = 1 Mem oria 10 mg oral 6-24 tab, PO, l tablet 14:32: Daily, # Secor 00 30 tab, 3 Refill(s), Pharmacy: [facility] #[id number], 149.86, cm, 03/24/20 9:12:00 CDT, Height, 90.909, kg, 03/24/20 9:12:00 CDT, Weight primidone 2020-0 No 50 mg = 1 Mem oria 50 mg oral 6-24 tab, PO, l tablet 14:32: Bedtime, X Jessie nn 30 day, # 30 tab, 3 Refill(s), Pharmacy: [facility] #[id number], 149.86, cm, 03/24/20 9:12:00 CDT, Height, 90.909, kg, 03/24/20 9:12:00 CDT, Weight donepezil 2020-0 Yes 10 mg = 1 Mem oria 10 mg oral 6-24 tab, PO, l tablet 14:32: Daily, # Secor 00 30 tab, 3 Refill(s), Pharmacy: [facility] #[id number], 149.86, cm, 03/24/20 9:12:00 CDT, Height, 90.909, kg, 03/24/20 9:12:00 CDT, Weight primidone 2020-0 No 50 mg = 1 Mem oria 50 mg oral 6-24 tab, PO, l tablet 14:32: Bedtime, X Jessie nn 30 day, # 30 tab, 3 Refill(s), Pharmacy: [facility] #[id number], 149.86, cm, 03/24/20 9:12:00 CDT, Height, 90.909, kg, 03/24/20 9:12:00 CDT, Weight donepezil 2020-0 Yes 10 mg = 1 Mem oria 10 mg oral 6-24 tab, PO, l tablet 14:32: Daily, # Raul 00 30 tab, 3 Refill(s), Pharmacy: [facility] #[id number], 149.86, cm, 03/24/20 9:12:00 CDT, Height, 90.909, kg, 03/24/20 9:12:00 CDT, Weight primidone 2020-0 No 50 mg = 1 Mem oria 50 mg oral 6-24 tab, PO, l tablet 14:32: Bedtime, X Jessie nn 30 day, # 30 tab, 3 Refill(s), Pharmacy: [facility] #[id number], 149.86, cm, 03/24/20 9:12:00 CDT, Height, 90.909, kg, 03/24/20 9:12:00 CDT, Weight donepezil 2020-0 Yes 10 mg = 1 Mem oria 10 mg oral 6-24 tab, PO, l tablet 14:32: Daily, # Secor 00 30 tab, 3 Refill(s), Pharmacy: [facility] #[id number], 149.86, cm, 03/24/20 9:12:00 CDT, Height, 90.909, kg, 03/24/20 9:12:00 CDT, Weight primidone 2020-0 No 50 mg = 1 Mem oria 50 mg oral 6-24 tab, PO, l tablet 14:32: Bedtime, X Jessie nn 30 day, # 30 tab, 3 Refill(s), Pharmacy: [facility] #[id number], 149.86, cm, 03/24/20 9:12:00 CDT, Height, 90.909, kg, 03/24/20 9:12:00 CDT, Weight donepezil 2020-0 Yes 10 mg = 1 Mem oria 10 mg oral 6-24 tab, PO, l tablet 14:32: Daily, # Secor 00 30 tab, 3 Refill(s), Pharmacy: [facility] #[id number], 149.86, cm, 03/24/20 9:12:00 CDT, Height, 90.909, kg, 03/24/20 9:12:00 CDT, Weight primidone 2020-0 No 50 mg = 1 Mem oria 50 mg oral 6-24 tab, PO, l tablet 14:32: Bedtime, X Jessie nn 30 day, # 30 tab, 3 Refill(s), Pharmacy: [facility] #[id number], 149.86, cm, 03/24/20 9:12:00 CDT, Height, 90.909, kg, 03/24/20 9:12:00 CDT, Weight donepezil 2020-0 Yes 10 mg = 1 Mem oria 10 mg oral 6-24 tab, PO, l tablet 14:32: Daily, # Raul 00 30 tab, 3 Refill(s), Pharmacy: [facility] #[id number], 149.86, cm, 03/24/20 9:12:00 CDT, Height, 90.909, kg, 03/24/20 9:12:00 CDT, Weight primidone 2020-0 No 50 mg = 1 Mem oria 50 mg oral 6-24 tab, PO, l tablet 14:32: Bedtime, X Jessie nn 30 day, # 30 tab, 3 Refill(s), Pharmacy: [facility] #[id number], 149.86, cm, 03/24/20 9:12:00 CDT, Height, 90.909, kg, 03/24/20 9:12:00 CDT, Weight donepezil 2020-0 Yes 10 mg = 1 Mem oria 10 mg oral 6-24 tab, PO, l tablet 14:32: Daily, # Secor 00 30 tab, 3 Refill(s), Pharmacy: [facility] #[id number], 149.86, cm, 03/24/20 9:12:00 CDT, Height, 90.909, kg, 03/24/20 9:12:00 CDT, Weight primidone 2020-0 No 50 mg = 1 Mem oria 50 mg oral 6-24 tab, PO, l tablet 14:32: Bedtime, X Jessie nn 30 day, # 30 tab, 3 Refill(s), Pharmacy: [facility] #[id number], 149.86, cm, 03/24/20 9:12:00 CDT, Height, 90.909, kg, 03/24/20 9:12:00 CDT, Weight donepezil 2020-0 Yes 10 mg = 1 Mem oria 10 mg oral 6-24 tab, PO, l tablet 14:32: Daily, # Raul 00 30 tab, 3 Refill(s), Pharmacy: [facility] #[id number], 149.86, cm, 03/24/20 9:12:00 CDT, Height, 90.909, kg, 03/24/20 9:12:00 CDT, Weight primidone 2020-0 No 50 mg = 1 Mem oria 50 mg oral 6-24 tab, PO, l tablet 14:32: Bedtime, X Jessie nn 30 day, # 30 tab, 3 Refill(s), Pharmacy: [facility] #[id number], 149.86, cm, 03/24/20 9:12:00 CDT, Height, 90.909, kg, 03/24/20 9:12:00 CDT, Weight donepezil 2020-0 Yes 10 mg = 1 Mem oria 10 mg oral 6-24 tab, PO, l tablet 14:32: Daily, # Raul 00 30 tab, 3 Refill(s), Pharmacy: [facility] #[id number], 149.86, cm, 03/24/20 9:12:00 CDT, Height, 90.909, kg, 03/24/20 9:12:00 CDT, Weight primidone 2020-0 No 50 mg = 1 Mem oria 50 mg oral 6-24 tab, PO, l tablet 14:32: Bedtime, X Jessie nn 30 day, # 30 tab, 3 Refill(s), Pharmacy: [facility] #[id number], 149.86, cm, 03/24/20 9:12:00 CDT, Height, 90.909, kg, 03/24/20 9:12:00 CDT, Weight donepezil 2020-0 Yes 10 mg = 1 Mem oria 10 mg oral 6-24 tab, PO, l tablet 14:32: Daily, # Raul 00 30 tab, 3 Refill(s), Pharmacy: [facility] #[id number], 149.86, cm, 03/24/20 9:12:00 CDT, Height, 90.909, kg, 03/24/20 9:12:00 CDT, Weight primidone 2020-0 No 50 mg = 1 Mem oria 50 mg oral 6-24 tab, PO, l tablet 14:32: Bedtime, X Jessie nn 30 day, # 30 tab, 3 Refill(s), Pharmacy: [facility] #[id number], 149.86, cm, 03/24/20 9:12:00 CDT, Height, 90.909, kg, 03/24/20 9:12:00 CDT, Weight donepezil 2020-0 Yes 10 mg = 1 Mem oria 10 mg oral 6-24 tab, PO, l tablet 14:32: Daily, # Secor 00 30 tab, 3 Refill(s), Pharmacy: [facility] #[id number], 149.86, cm, 03/24/20 9:12:00 CDT, Height, 90.909, kg, 03/24/20 9:12:00 CDT, Weight primidone 2020-0 No 50 mg = 1 Mem oria 50 mg oral 6-24 tab, PO, l tablet 14:32: Bedtime, X Jessie nn 30 day, # 30 tab, 3 Refill(s), Pharmacy: [facility] #[id number], 149.86, cm, 03/24/20 9:12:00 CDT, Height, 90.909, kg, 03/24/20 9:12:00 CDT, Weight donepezil 2020-0 Yes 10 mg = 1 Mem oria 10 mg oral 6-24 tab, PO, l tablet 14:32: Daily, # Raul 00 30 tab, 3 Refill(s), Pharmacy: [facility] #[id number], 149.86, cm, 03/24/20 9:12:00 CDT, Height, 90.909, kg, 03/24/20 9:12:00 CDT, Weight primidone No 50 mg = 1 Mem oria 50 mg oral 6-24 tab, PO, l tablet 14:32: Bedtime, X Jessie nn day, # 30 tab, 3 Refill(s), Pharmacy: [facility] #[id number], 149.86, cm, 03/24/20 9:12:00 CDT, Height, 90.909, kg, 03/24/20 9:12:00 CDT, Weight sucralfate 2019- Yes [id number] .[id number][in_ Apply 0.25 [employer] [facility], 02-18 us] Inches as ity of polymerized 00:00: directed 4 [place] 1 gram/10 00 (four) Medical mL Pste times [place] daily as needed for Pain (scale 1-3). sucralfate 2019- No [id number] .[id number][in_ Apply 0.25 [employer] [facility], 02-18 09-28 us] Inches as ity of polymerized 00:00: 00:00 directed 4 [place] 1 gram/10 00 :00 (four) Medical mL [...] Jessie nn [Topamax] 30 tab, 3 Refill(s) Walker 2018- Yes 1 ea, Memoria 7-26 MISC, l 21:45: Daily, # 1 Secor 00 ea, 0 Refill(s) Walker 2018- Yes 1 ea, Memoria 7-26 MISC, l 21:45: Daily, # 1 Secor 00 ea, 0 Refill(s) Walker Yes 1 ea, Memoria 7-26 MISC, l 21:45: Daily, # 1 Raul 00 ea, 0 Refill(s) Walker Yes 1 ea, Memoria 7-26 MISC, l 21:45: Daily, # 1 Raul 00 ea, 0 Refill(s) Walker 0 Yes 1 ea, Memoria 7-26 MISC, l 21:45: Daily, # 1 Secor 00 ea, 0 Refill(s) Walker 2018-0 Yes 1 ea, Memoria 7-26 MISC, l 21:45: Daily, # 1 Secor 00 ea, 0 Refill(s) Walker 2018-0 Yes 1 ea, Memoria 7-26 MISC, l 21:45: Daily, # 1 Raul 00 ea, 0 Refill(s) Walker 2018-0 Yes 1 ea, Memoria 7-26 MISC, l 21:45: Daily, # 1 Secor 00 ea, 0 Refill(s) Walker 2018-0 Yes 1 ea, Memoria 7-26 MISC, l 21:45: Daily, # 1 Secor 00 ea, 0 Refill(s) Walker 2018-0 Yes 1 ea, Memoria 7-26 MISC, l 21:45: Daily, # 1 Raul 00 ea, 0 Refill(s) Walker 2019-0 Yes 1 ea, Memoria 7-26 MISC, l 21:45: Daily, # 1 Secor 00 ea, 0 Refill(s) Walker 2018- Yes 1 ea, Memoria 7-26 MISC, l 21:45: Daily, # 1 Secor 00 ea, 0 Refill(s) Walker 2018-0 Yes [...] 00 30 tab, 3 chewable Refill(s), Pharmacy: [facility] #[id number] Adult 0 Yes 81 mg = 1 Memoria Aspirin 81 6-21 tab, CHEW, l mg oral 20:18: Daily, # Ajay n tablet, 00 30 tab, 3 chewable Refill(s), Pharmacy: [facility] #[id number] Adult 0 Yes 81 mg = 1 Memoria Aspirin 81 6-21 tab, CHEW, l mg oral 20:18: Daily, # Ajay n tablet, 00 30 tab, 3 chewable Refill(s), Pharmacy: [facility] #[id number] Adult [id number] Yes 81 mg = 1 Memoria Aspirin 81 6-21 tab, CHEW, l mg oral 20:18: Daily, # Ajay n tablet, 00 30 tab, 3 chewable Refill(s), Pharmacy: [facility] #[id number] Adult [id number] Yes 81 mg = 1 Memoria Aspirin 81 6-21 tab, CHEW, l mg oral 20:18: Daily, # Ajay n tablet, 00 30 tab, 3 chewable Refill(s), Pharmacy: [facility] #[id number] Adult [id number] Yes 81 mg = 1 Memoria Aspirin 81 6-21 tab, CHEW, l mg oral 20:18: Daily, # Ajay n tablet, 00 30 tab, 3 chewable Refill(s), [id number] Adult 2019-0 Yes 81 mg = 1 Memoria Aspirin 81 6-21 tab, CHEW, l mg oral 20:18: Daily, # Ajay n tablet, 00 30 tab, 3 chewable Refill(s), [id number] Adult 2019-0 Yes 81 mg = 1 Memoria Aspirin 81 6-21 tab, CHEW, l mg oral 20:18: Daily, # Ajay n tablet, 00 30 tab, 3 chewable Refill(s), [id number] Adult 2019-0 Yes 81 mg = 1 Memoria Aspirin 81 6-21 tab, CHEW, l mg oral 20:18: Daily, # Ajay n tablet, 00 30 tab, 3 chewable Refill(s), [id number] Adult [id number] Yes 81 mg = 1 Memoria Aspirin 81 6-21 tab, CHEW, l mg oral 20:18: Daily, # Ajay n tablet, 00 30 tab, 3 chewable Refill(s), [id number] Adult [id number] Yes 81 mg = 1 Memoria Aspirin 81 6-21 tab, CHEW, l mg oral 20:18: Daily, # Ajay n tablet, 00 30 tab, 3 chewable Refill(s), [id number] Adult [id number] Yes 81 mg = 1 Memoria Aspirin 81 6-21 tab, CHEW, l mg oral 20:18: Daily, # Ajay n tablet, 00 30 tab, 3 chewable Refill(s), [id number] Adult 2019-0 Yes 81 mg = 1 Memoria Aspirin 81 6-21 tab, CHEW, l mg oral 20:18: Daily, # Ajay n tablet, 00 30 tab, 3 chewable Refill(s), [id number] Adult 2019-0 Yes 81 mg = 1 Memoria Aspirin 81 6-21 tab, CHEW, l mg oral 20:18: Daily, # Ajay n tablet, 00 30 tab, 3 chewable Refill(s), [id number] Adult 2019-0 Yes 81 mg = 1 Memoria Aspirin 81 6-21 tab, CHEW, l mg oral 20:18: Daily, # Ajay n tablet, 00 30 tab, 3 chewable Refill(s), Pharmacy: [facility] #[id number] Adult 2019-0 Yes 81 mg = 1 Memoria Aspirin 81 6-21 tab, CHEW, l mg oral 20:18: Daily, # Ajay n tablet, 00 30 tab, 3 chewable Refill(s), Pharmacy: [facility] #[id number] levothyroxi 2019-0 Yes 125 Memori a [...] tab, PO, l tablet 20:06: BID, 0 Secor 00 Refill(s) lisinopril 2019- Yes 40 mg = 1 Me moria 40 mg oral 5-24 tab, PO, l tablet 20:06: Daily, # Raul 00 30 tab, 0 Refill(s) donepezil Yes 10 mg = 1 Mem oria 10 mg oral 5-24 tab, PO, l tablet 20:06: Daily, # Secor 00 30 tab, 0 Refill(s) metoprolol Yes [...] tab, PO, l tablet 20:06: Daily, # Secor 00 90 tab, 0 Refill(s) Atropine Yes [...] tab, PO, l tablet 20:06: BID, 0 Secor 00 Refill(s) lisinopril Yes 40 mg = 1 Me moria 40 mg oral 5-24 tab, PO, l tablet 20:06: Daily, # Secor 00 30 tab, 0 Refill(s) ProAir HFA 0 Yes 1 - 2 Memori a 5-24 puffs, PO, l 20:06: Q4H, PRN Raul 00 Wheezing / cough / shortness of breath, # 1 ea, 0 Refill(s) donepezil Yes 10 mg = 1 Mem oria 10 mg oral 5-24 tab, PO, l tablet 20:06: Daily, # Secor 00 30 tab, 0 Refill(s) ProAir HFA [...] tab, PO, l tablet 20:06: BID, 0 Secor 00 Refill(s) lisinopril Yes 40 mg = [...] tab, PO, l tablet 20:06: BID, 0 Secor 00 Refill(s) lisinopril 2019-0 Yes 40 mg [...] tab, PO, l tablet 20:06: Daily, # Secor 00 90 tab, 0 Refill(s) Atropine 2019-0 [...] tab, PO, l tablet 20:06: Daily, # Secor 00 30 tab, 0 Refill(s) donepezil 2019-0 [...] 00 30 tab, 0 release Refill(s) Escitalopra 2018-0 Yes 20 mg = 1 M emoria m 20 MG 5-24 tab, PO, l Oral Tablet 20:06: Daily, # [place] [Lexapro] 00 30 tab, 0 Refill(s) metoprolol 2018-0 Yes 50 mg [...] tab, PO, l tablet 20:06: Daily, # Secor 00 30 tab, 0 Refill(s) donepezil 2019-0 Yes 10 mg = 1 Mem oria 10 mg oral 5-24 tab, PO, l tablet 20:06: Daily, # Raul 00 30 tab, 0 Refill(s) ProAir HFA 2019-0 Yes 1 - 2 Memori a 5-24 puffs, PO, l 20:06: Q4H, PRN Secor 00 Wheezing / cough / shortness of breath, # 1 ea, 0 Refill(s) amLODIPine 2019-0 Yes 5 mg = [...] tab, PO, l tablet 20:06: Daily, # Secor 00 30 tab, 0 Refill(s) ProAir HFA Yes 1 - 2 Memori a 5-24 puffs, PO, l 20:06: Q4H, PRN Secor 00 Wheezing / cough / shortness of [...] tab, PO, l tablet 20:06: BID, 0 Secor 00 Refill(s) lisinopril Yes 40 mg = 1 Me moria 40 mg oral 5-24 tab, PO, l tablet 20:06: Daily, # Secor 00 30 tab, 0 Refill(s) donepezil Yes 10 mg = 1 Mem oria 10 mg oral 5-24 tab, PO, l tablet 20:06: Daily, # Secor 00 30 tab, 0 Refill(s) ProAir HFA [...] tab, PO, l tablet 20:06: Daily, # Secor 00 90 tab, 0 Refill(s) Atropine Yes 2 tab, PO, Mem oria Sulfate 5-24 PRN, PRN l 0.025 MG / 20:06: for loose [place] r[place]renie Diphenoxyla 00 stool, 0 te Refill(s) Hydrochlori de 2.5 MG Oral Tablet [Lomotil] lovastatin Yes 20 mg = 1 Me moria 20 mg oral 5-24 tab, PO, l tablet 20:06: Bedtime, # Jessie nn 00 30 tab, 0 Refill(s) rOPINIRole Yes 2 mg = 1 Mem oria 2 mg oral 5-24 tab, PO, l tablet 20:06: BID, 0 Secor 00 Refill(s) lisinopril Yes 40 mg = 1 Me moria 40 mg oral 5-24 tab, PO, l tablet 20:06: Daily, # Raul 00 30 tab, 0 Refill(s) donepezil Yes 10 mg = 1 Mem oria 10 mg oral 5-24 tab, PO, l tablet 20:06: Daily, # Secor 00 30 tab, 0 Refill(s) ProAir HFA 0 Yes 1 - 2 Memori a 5-24 puffs, PO, l 20:06: Q4H, PRN Secor 00 Wheezing / cough / shortness of [...] tab, PO, l tablet 20:06: Daily, # Secor 00 30 tab, 0 Refill(s) ProAir HFA 2019-0 Yes 1 - 2 Memori a 5-24 puffs, PO, l 20:06: Q4H, PRN Secor 00 Wheezing / cough / shortness of [...] tab, PO, l tablet 20:06: Daily, # Secor 00 90 tab, 0 Refill(s) Atropine Yes [...] tab, PO, l tablet 20:06: BID, 0 Secor 00 Refill(s) lisinopril 2019- Yes 40 mg [...] 5-24 puffs, PO, l 20:06: Q4H, PRN Secor 00 Wheezing / cough / shortness of [...] 5-24 puffs, PO, l 20:06: Q4H, PRN Secor 00 Wheezing / cough / shortness of [...] delayed 20:06: Daily, # Ajay n release 30 cap, 0 capsule Refill(s) amLODIPine 2018- [...] tab, PO, l tablet 20:06: BID, 0 Secor 00 Refill(s) lisinopril 2019-0 Yes 40 mg = 1 Me moria 40 mg oral 5-24 tab, PO, l tablet 20:06: Daily, # Secor 00 30 tab, 0 Refill(s) donepezil 2019-0 Yes 10 mg = 1 Mem oria 10 mg oral 5-24 tab, PO, l tablet 20:06: Daily, # Secor 00 30 tab, 0 Refill(s) ProAir HFA 2019-0 Yes 1 - 2 Memori a 5-24 puffs, PO, l 20:06: Q4H, PRN Secor 00 Wheezing / cough / shortness of [...] tab, PO, l tablet 20:06: Daily, # Secor 00 90 tab, 0 Refill(s) Atropine 2019-0 [...] tab, PO, l tablet 20:06: Daily, # Secor 00 30 tab, 0 Refill(s) ProAir HFA [...] mouth ity of XL (TOPROL 17:04: daily. [place] XL) 50 mg 36 Medical 24 hr [...] mouth ity of XL (TOPROL 11:04: daily. [place] XL) 50 mg 36 Medical 24 hr [...] mouth ity of ESTRIL) 40 11:04: daily. [place] mg tablet 36 [facility] escitalopra 2017 [...] daily. [place] capsule 36 [facility] metoprolol 0 Yes 50mg Take 50 mg U nivers succinate 3-07 by mouth ity of XL (TOPROL 11:04: daily. [place] XL) 50 mg 36 Medical 24 hr [...] mouth ity of mg tablet 11:04: daily. [place] [id number] [facility] lovastatin 2016-0 Yes 20mg Take 20 mg U nivers (MEVACOR) 3-07 by mouth ity of 20 mg 11:04: daily. [place] tablet [facility] Advair Advair No Advair Devoted [...] Ciprofloxa in HCl in HCl nataliya HCl Nitrofurant Nitrofurant No Nitrofuran oin Monohyd oin Monohyd toin Macro Macro Monohyd Macro Lomotil Lomotil No Lomotil Kerendia 10 Kerendia 10 No 1{table QD Kerendia MG MG t} 10 MG Clindamycin Clindamycin No Clindamyci HCl HCl n HCl Donepezil Donepezil No 1{table QD Donepezil HCl 10 MG HCl 10 MG t} HCl 10 MG Primidone Primidone No Primidone Vitamin D3 Vitamin D3 No Vitamin D3 10 MCG (400 10 MCG (400 10 MCG UNIT) UNIT) (400 UNIT) amLODIPine amLODIPine No 1{table QD amLODIPine Besylate [...] oin Monohyd toin Macro Macro Monohyd Macro Spironolact Spironolact No Spironolac one one tone [...] Ellipta Ellipta Ellipta Gabapentin Gabapentin No Gabapentin Gabapentin Gabapentin No Gabapentin Pantoprazol Pantoprazol No [...] Gabapentin No Gabapentin Famotidine Famotidine No Famotidine Spironolact Spironolact No Spironolac one one tone Albuterol Albuterol No Albuterol Sulfate HFA Sulfate [...] Chlorhexid ne ne ine Gluconate Gluconate Gluconate Potassium Potassium No Potassium Chloride ER Chloride ER Chloride ER Ciprofloxac Ciprofloxac No Ciprofloxa in HCl in HCl nataliya HCl Mupirocin Mupirocin No Mupirocin Calcium Calcium Calcium Nitrofurant Nitrofurant No Nitrofuran oin Monohyd oin [...] (400 10 MCG UNIT) UNIT) (400 UNIT) amLODIPine amLODIPine No 1{table QD amLODIPine Besylate 5 Besylate 5 t} Besylate 5 MG MG MG Lisinopril Lisinopril No Lisinopril Ferrous Ferrous No Ferrous Sulfate Sulfate Sulfate Pantoprazol Pantoprazol No Pantoprazo e Sodium e Sodium le Sodium NIFEdipine NIFEdipine No 1{table QD NIFEdipine ER [...] Fluocinonid Fluocinonid No Fluocinoni e e de Carvedilol Carvedilol No Carvedilol traMADol traMADol No traMADol HCl HCl HCl [...] MG 25 MG t_with_ 25 MG food} Famotidine Famotidine No Famotidine Flublok Flublok No Flublok Quadrivalen Quadrivalen Quadrivale [...] % Sodium 1 % Sodium 1 % Metoprolol Metoprolol No Metoprolol Succinate Succinate Succinate Furosemide Furosemide No Furosemide Sulfamethox Sulfamethox No Sulfametho azole-Trime azole-Trime xazole-Tri thoprim thoprim methoprim Levothyroxi Levothyroxi No Levothyrox ne Sodium ne Sodium ine Sodium Chlorhexidi Chlorhexidi No Chlorhexid ne ne ine Gluconate Gluconate Gluconate Ciprofloxac Ciprofloxac No Ciprofloxa in HCl in HCl nataliya HCl Escitalopra Escitalopra No 1{table QD Escitalopr m [...] Observation Time Observation Value Comments Source height 2022-11-13 10:00:00 59 [in_i] [facility] weight 2022-11-13 10:00:00 188 [lb_av] [facility] temperature 2022-11-13 10:00:00 97.9 [degF] [facility] bmi 2022-11-13 10:00:00 37.97 kg/m2 [facility] blood pressure 2022-11-13 10:00:00 114 mm[Hg] [facility] Spirit - systolic [facility] blood pressure 2022-11-13 10:00:00 74 mm[Hg] [facility] Spirit - diastolic [facility] Systolic blood 2022-08-05 20:00:00 122 mm[Hg] Univer sity [facility] Diastolic blood 2022-08-05 20:00:00 77 mm[Hg] Unive [facility] Heart rate 2022-08-05 20:00:00 50 /min [facility] Respiratory rate 2022-08-05 20:00:00 18 /min [facility] Oxygen saturation in 2022-08-05 20:00:00 94 /min [facility] Arterial blood by [facility] Pulse oximetry Branch Body temperature 2022-08-05 17:24:00 36 Tracee [facility] Body height 2022-08-05 17:24:00 149.9 cm [facility] Body weight 2022-08-05 17:24:00 83.915 kg [facility] BMI 2022-08-05 17:24:00 37.37 kg/m2 [facility] height 2022-07-27 13:15:00 59 [in_i] [facility] - [facility] weight 2022-07-27 13:15:00 188.2 [lb_av] [facility] temperature 2022-07-27 13:15:00 97.6 [degF] [facility] - [facility] bmi 2022-07-27 13:15:00 38.01 kg/m2 [facility] - [facility] blood pressure 2022-07-27 13:15:00 125 mm[Hg] [facility] - systolic [facility] blood pressure 2022-07-27 13:15:00 82 mm[Hg] [facility] - diastolic [facility] height 2022-06-15 13:30:00 59 [in_i] [facility] - [facility] weight 2022-06-15 13:30:00 193 [lb_av] [facility] temperature 2022-06-15 13:30:00 98.1 [degF] [facility] bmi 2022-06-15 13:30:00 38.98 kg/m2 [facility] blood pressure 2022-06-15 13:30:00 128 mm[Hg] [facility] - systolic [facility] blood pressure 2022-06-15 13:30:00 76 mm[Hg] [facility] - diastolic [facility] height 2021-10-17 14:30:00 59 [in_i] Common [facility] pirit - [facility] weight 2021-10-17 14:30:00 220 [lb_av] Common [facility] pirit - [facility] temperature 2021-10-17 14:30:00 97.9 [degF] Common [facility]irit [facility] bmi 2021-10-17 14:30:00 44.43 kg/m2 [facility] - [facility] blood pressure 2021-10-17 14:30:00 126 mm[Hg] [facility] - systolic [facility] blood pressure 2021-10-17 14:30:00 74 mm[Hg] [facility] - diastolic [facility] Systolic blood 2020-06-28 19:30:00 180 mm[Hg] Univer sity of pressure [facility] Diastolic blood 2020-06-28 19:30:00 82 mm[Hg] Unive rsity of pressure [facility] Heart rate 2020-06-28 19:30:00 61 /min Universi ty of [facility] Respiratory rate 2020-06-28 19:13:00 17 /min Univ [facility] Oxygen saturation in 2020-06-28 19:13:00 96 /min University of Arterial blood by [facility] Pulse oximetry Branch Body temperature 2020-06-28 16:54:00 36.33 Tracee Univ [facility] Body weight 2020-06-28 16:54:00 95.255 kg [facility] BMI 2020-06-28 16:54:00 42.41 kg/m2 [facility] Systolic blood 2020-06-28 19:30:00 180 mm[Hg] Univer sity of pressure [facility] Diastolic blood 2020-06-28 19:30:00 82 mm[Hg] Unive rsity of pressure [facility] Heart rate 2020-06-28 19:30:00 61 /min [facility] Respiratory rate 2020-06-28 19:13:00 17 /min Univ [facility] Oxygen saturation in 2020-06-28 19:13:00 96 /min University of Arterial blood by [facility] tania Pulse oximetry Branch Body temperature 2020-06-28 16:54:00 36.33 Tracee [facility] Body weight 2020-06-28 16:54:00 95.255 kg [facility] BMI 2020-06-28 16:54:00 42.41 kg/m2 [facility] Systolic blood 2020-02-19 19:23:00 160 mm[Hg] Univer sity of pressure [facility] Diastolic blood 2020-02-19 19:23:00 84 mm[Hg] Unive rsity of pressure [facility] Heart rate 2020-02-19 19:23:00 63 /min [facility] Body temperature 2020-02-19 19:23:00 36.39 Tracee Univ [facility] Respiratory rate 2020-02-19 19:23:00 15 /min Univ [facility] Body height 2020-02-19 19:23:00 149.9 cm [facility] Body weight 2020-02-19 19:23:00 99.791 kg [facility] BMI 2020-02-19 19:23:00 44.43 kg/m2 [facility] Oxygen saturation in 2020-02-19 19:23:00 96 /min University of Arterial blood by [place] [employer] tania Pulse oximetry Branch Systolic blood 2020-02-19 19:23:00 160 mm[Hg] Univer sity of pressure [facility] Diastolic blood 2020-02-19 19:23:00 84 mm[Hg] Unive rsity of pressure [facility] Heart rate 2020-02-19 19:23:00 63 /min [facility] Body temperature 2020-02-19 19:23:00 36.39 Tracee [facility] Respiratory rate 2020-02-19 19:23:00 15 /min [facility] Body height 2020-02-19 19:23:00 149.9 cm [facility] Body weight 2020-02-19 19:23:00 99.791 kg [facility] BMI 2020-02-19 19:23:00 44.43 kg/m2 [facility] Oxygen saturation in 2020-02-19 19:23:00 96 /min University of Arterial blood by [place] [employer] tania Pulse oximetry Branch Systolic blood 2019-12-10 04:00:00 202 mm[Hg] Univer sity of pressure [facility] Diastolic blood 2019-12-10 04:00:00 92 mm[Hg] Unive rsity of pressure [facility] Heart rate 2019-12-10 04:00:00 75 /min [facility] Respiratory rate 2019-12-10 04:00:00 18 /min Univ [facility] Oxygen saturation in 2019-12-10 04:00:00 98 /min University of Arterial blood by [facility] Pulse oximetry Branch Body temperature 2019-12-10 02:51:13 36.39 Tracee [facility] ersity of [facility] Body height 2019-12-10 02:28:00 162.6 cm [facility] [place] [facility] [place] Body weight 2019-12-10 02:28:00 104.327 kg Universi ty of [facility] BMI 2019-12-10 02:28:00 39.48 kg/m2 Universi ty of [facility] Systolic blood 2019-12-10 04:00:00 202 mm[Hg] Univer sity of pressure [facility] Diastolic blood 2019-12-10 04:00:00 92 mm[Hg] Unive rsity of pressure [facility] Heart rate 2019-12-10 04:00:00 75 /min Universi ty of [facility] Respiratory rate 2019-12-10 04:00:00 18 /min [facility] Oxygen saturation in 2019-12-10 04:00:00 98 /min University of Arterial blood by [facility] Pulse oximetry [place] Body temperature 2019-12-10 02:51:13 36.39 Tracee [facility] ersity of [facility] Body height 2019-12-10 02:28:00 162.6 cm [facility] [place] [facility] [place] Body weight 2019-12-10 02:28:00 104.327 kg Universi ty of [facility] BMI 2019-12-10 02:28:00 39.48 kg/m2 Universi ty of [facility] Heart Rate 2022-11-29 19:18:58 [facility] Systolic (mm Hg) 2022-11-29 19:18:48 Jose Francisco [facility] Diastolic (mm Hg) 2022-11-29 19:18:48 [facility] Heart Rate 2022-11-29 19:18:48 [facility] Temperature Oral (F) 2022-11-29 19:18:21 98.2 F [facility] Heart Rate 2022-11-29 13:36:55 [facility] Systolic (mm Hg) 2022-11-29 13:36:27 Jose Francisco [facility] Diastolic (mm Hg) 2022-11-29 13:36:27 [facility] Systolic (mm Hg) 2022-11-29 13:14:00 Jose Francisco [facility] Diastolic (mm Hg) 2022-11-29 13:14:00 Mem [facility] Respitory Rate 2022-11-29 10:05:34 [facility] Temperature Oral (F) 2022-11-29 10:04:49 98.4 F [facility] Respitory Rate 2022-11-29 05:37:05 Memori al [facility] Temperature Oral (F) 2022-11-29 05:36:29 97.7 F [facility] Temperature Oral (F) 2022-11-29 02:00:00 98 F [facility] Respitory Rate 2022-11-28 20:51:03 [facility] Height 2022-11-28 19:03:00 4 [ft_i] [facility] Weight 2022-11-28 19:03:00 [facility] Height 2022-11-27 14:13:00 149.86 cm [facility] Weight 2022-11-27 14:13:00 [facility] BMI Calculated 2022-11-27 14:13:00 [facility] Height 2022-11-27 05:50:00 149.86 cm [facility] BMI Calculated 2022-11-27 05:50:00 [facility] Weight 2022-11-27 05:50:00 [facility] Systolic (mm Hg) 2022-11-23 01:23:00 Jose Francisco [facility] Diastolic (mm Hg) 2022-11-23 01:23:00 Mem [facility] Respitory Rate 2022-11-23 01:23:00 [facility] Respitory Rate 2022-11-22 22:30:00 [facility] Systolic (mm Hg) 2022-11-22 22:30:00 Jose Francisco [facility] Diastolic (mm Hg) 2022-11-22 22:30:00 [facility] Respitory Rate 2022-11-22 21:30:00 [facility] Systolic (mm Hg) 2022-11-22 21:30:00 Jose Francisco [facility] Diastolic (mm Hg) 2022-11-22 21:30:00 [facility] Temperature Oral (F) 2022-11-22 02:00:00 98.2 F [facility] Temperature Oral (F) 2022-11-21 22:54:00 97.7 F [facility] Temperature Oral (F) 2022-11-21 16:07:00 98.2 F [facility] Height 2022-11-21 10:11:00 149.86 cm [facility] BMI Calculated 2022-11-21 10:11:00 [facility] Weight 2022-11-21 10:11:00 [facility] Heart Rate 2022-11-21 10:11:00 [facility] Systolic (mm Hg) 2021-11-02 20:14:00 Jose Francisco [facility] Diastolic (mm Hg) 2021-11-02 20:14:00 [facility] Heart Rate 2021-11-02 20:14:00 [facility] Respitory Rate 2021-11-02 20:14:00 [facility] Height 2021-11-02 20:14:00 149.86 cm [facility] Weight 2021-11-02 20:14:00 [facility] BMI Calculated 2021-11-02 20:14:00 [facility] Systolic (mm Hg) 2020-12-24 18:59:00 Jose Francisco [facility] Diastolic (mm Hg) 2020-12-24 18:59:00 [facility] Heart Rate 2020-12-24 18:59:00 [facility] Respitory Rate 2020-12-24 18:59:00 [facility] Height 2020-12-24 18:59:00 149.86 cm [facility] Weight 2020-12-24 18:59:00 [facility] BMI Calculated 2020-12-24 18:59:00 [facility] Systolic (mm Hg) 2020-09-06 20:47:00 Jose Francisco [facility] Diastolic (mm Hg) 2020-09-06 20:47:00 [facility] Temperature Oral (F) 2020-09-06 18:26:00 99.7 F [facility] Heart Rate 2020-09-06 18:26:00 [facility] Respitory Rate 2020-09-06 18:26:00 [facility] Systolic (mm Hg) 2020-09-06 18:26:00 Jose Francisco [facility] Diastolic (mm Hg) 2020-09-06 18:26:00 [facility] Temperature Oral (F) 2020-09-06 14:09:00 98.1 F [facility] Heart Rate 2020-09-06 14:09:00 [facility] Respitory Rate 2020-09-06 14:09:00 [facility] Systolic (mm Hg) 2020-09-06 14:09:00 Jose Francisco [facility] Diastolic (mm Hg) 2020-09-06 14:09:00 [facility] Temperature Oral (F) 2020-09-06 10:00:00 98.1 F [facility] Heart Rate 2020-09-06 10:00:00 [facility] Respitory Rate 2020-09-06 10:00:00 [facility] Temperature Oral (F) 2020-09-06 06:30:00 97.5 F [facility] Heart Rate 2020-09-06 06:30:00 [facility] Respitory Rate 2020-09-06 06:30:00 [facility] Systolic (mm Hg) 2020-09-06 06:30:00 Jose Francisco [facility] Diastolic (mm Hg) 2020-09-06 06:30:00 [facility] Temperature Oral (F) 2020-09-06 02:45:00 97.8 F [facility] Heart Rate 2020-09-06 02:45:00 [facility] Respitory Rate 2020-09-06 02:45:00 [facility] Systolic (mm Hg) 2020-09-06 02:45:00 Jose Francisco [facility] Diastolic (mm Hg) 2020-09-06 02:45:00 [facility] Temperature Oral (F) 2020-09-05 22:00:00 97 F [facility] Heart Rate 2020-09-05 22:00:00 [facility] Respitory Rate 2020-09-05 22:00:00 [facility] Systolic (mm Hg) 2020-09-05 22:00:00 Jose Francisco [facility] Diastolic (mm Hg) 2020-09-05 22:00:00 [facility] Height 2020-09-05 02:46:00 124.46 cm [facility] BMI Calculated 2020-09-05 02:46:00 [facility] Weight 2020-09-05 02:46:00 [facility] Systolic (mm Hg) 2020-05-25 18:41:00 Jose Francisco [facility] Diastolic (mm Hg) 2020-05-25 18:41:00 [facility] Heart Rate 2020-05-25 18:41:00 [facility] Respitory Rate 2020-05-25 18:41:00 [facility] Temperature Oral (F) 2020-05-25 18:41:00 98.6 F [...] Raul BMI Calculated 2020-03-24 14:12:00 [facility] Systolic (mm Hg) 2019-07-24 19:29:00 Jose Francisco [facility] Diastolic (mm Hg) 2019-07-24 19:29:00 [facility] Heart Rate 2019-07-24 19:29:00 [facility] Respitory Rate 2019-07-24 19:29:00 [facility] Height 2019-07-24 19:29:00 149.86 cm [facility] Weight 2019-07-24 19:29:00 [facility] BMI Calculated 2019-07-24 19:29:00 [facility] Systolic (mm Hg) 2019-05-21 19:25:00 Jose Francisco [facility] Diastolic (mm Hg) 2019-05-21 19:25:00 [facility] Heart Rate 2019-05-21 19:25:00 [facility] Respitory Rate 2019-05-21 19:25:00 [facility] Height 2019-05-21 19:25:00 149.86 cm [facility] Weight 2019-05-21 19:25:00 [facility] BMI Calculated 2019-05-21 19:25:00 [facility] Height 2019-03-21 19:45:00 147.32 cm [facility] Weight 2019-03-21 19:45:00 [facility] BMI Calculated 2019-03-21 19:45:00 [facility] Respitory Rate 2019-03-21 19:45:00 [facility] Heart Rate 2019-03-21 19:45:00 [facility] Systolic (mm Hg) 2019-03-21 19:45:00 Jose Francisco [facility] Diastolic (mm Hg) 2019-03-21 19:45:00 [facility] Height 2019-02-21 20:01:00 149.86 cm [facility] Weight 2019-02-21 20:01:00 [facility] BMI Calculated 2019-02-21 20:01:00 [facility] Respitory Rate 2019-02-21 20:01:00 [facility] Heart Rate 2019-02-21 20:01:00 [facility] Systolic (mm Hg) 2019-02-21 20:01:00 Jose Francisco [facility] Diastolic (mm Hg) 2019-02-21 20:01:00 [facility] Procedures Procedure Date / Time Performing Clinician Source Performed AUTHORIZATION FOR 2022-11-22 06:01:00 Doctor Unassigned, No [facility] RELEASE OF PHI Name [facility] XR CHEST 1 VW 2022-08-05 17:51:10 Carly Sinclair [facility] TROPONIN I 2022-08-05 17:31:00 Carly Sinclair [facility] COMP. METABOLIC PANEL 2022-08-05 17:31:00 Carly Sinclair [facility] ([id number]) [facility] CBC WITH DIFF 2022-08-05 17:31:00 Carly Sinclair [facility] RAPID INFLUENZA A/B 2022-08-05 17:31:00 Carly [facility] N-TERMINAL PRO-BNP 2022-08-05 17:31:00 Carly Sinclair [facility] sity [facility] COVID-19 (ID NOW RAPID 2022-08-05 17:31:00 [facility] CONSENT/REFUSAL FOR 2022-08-05 17:11:04 Doctor Unassigned, No [facility] DI[facility]NOSIS [facility] TREATMENT Name Medical Branch XR FOREARM 2 VW RIGHT 2020-06-28 17:49:01 Sariah Miller [facility] XR SHOULDER 2+ VW RIGHT 2020-06-28 17:49:01 Sariah Miller [facility] CONSENT/REFUSAL FOR 2020-02-19 18:58:01 Doctor Unassigned, No [facility] [place] [facility] TREAT[facility] Name Medical Branch XR TIBIA FIBULA 2 VW 2019-12-10 03:20:47 Timi Aguirre [facility] Encounters Start End Encounter Admission Attending Care Care Encounter Source Date/Time Date/Time Type Type Clinicians Facility Department ID 2023-04-30 Outpatient STLMLC STLMLC [id number] Common 12:50:00 [id number] [facility] 2023-03-[address] [facility] [id number] [place] 09:56:10 [id number] [facility] 2022-11-[address] [facility] [id number] [place] 08:22:57 [id number] [facility] 2022-11-[address] [facility] [id number] [place] 15:23:09 [id number] [facility] 2022-11-13 Outpatient STLMLC STLMLC [id number] Common 13:04:00 [id number] [facility] 2022-11-09 Outpatient STLMLC STLMLC [id number] Common 12:35:00 [id number] [facility] 2022-07-26 Outpatient STLMLC STLMLC [id number] Common 16:10:00 [id number] [facility] 2022-06-16 Outpatient STLMLC STLMLC [id number] Common 09:53:02 [id number] [facility] 2021-10-26 Outpatient STLMLC STLMLC [id number] Common 13:00:46 [id number] [facility] 2021-10-26 Outpatient STLMLC STLMLC [id number] Common 12:25:20 [id number] [facility] 2021-10-26 Outpatient STLMLC STLMLC [id number] Common 12:16:59 [id number] [facility] 2021-10-05 Inpatient NIC Sanderson HCAWU ADMI [id number] [facility] 11:00:00 Anurag Ferguson [facility] 2021-07-29 Emergency [facility] [id number] Univers 19:46:17 ity [facility] 2021-07-28 Emergency [facility] [id number] Univers 21:53:33 ity [facility] 2023-07-13 2023-07-20 Inpatient Manfred FALK [place] [id number] 15:27:00 18:29:[address] [place] [address] 2023-06-06 2023-06-06 Outpatient GC_GCBZW_Ka PRIV PRIV [id number] [facility] 00:00:00 00:00:00 diyala_S [id number] Medic al 2023-05-15 2023-05-15 Palliative Glenys 2.16.840. 2.16.840.1. C LACXSUHJY [facility] 18:00:00 19:00:00 Care VP OUTCOMES/MD Claros [id number]. [facility] Medical Follow Up [id number] 2023-04-30 2023-04-30 Outpatient GC_GCBZW_Ka PRIV PRIV [id number] [facility] 00:00:00 00:00:00 diyala_S [id number] Medic al 2023-04-30 2023-04-30 Outpatient GC_GCBZW_Ka PRIV PRIV [id number] [facility] 00:00:00 00:00:00 diyala_S [id number] Medic al 2023-04-30 2023-04-30 Outpatient GC_GCBZW_Ka PRIV PRIV [id number] [facility] 00:00:00 00:00:00 diyala_S [id number] Medic al 2023-04-25 2023-04-25 Outpatient GC_GCBZW_Ka PRIV PRIV [id number] [facility] 00:00:00 00:00:00 diyala_S [id number] Medic al 2023-04-25 2023-04-25 Outpatient GC_GCBZW_Ka PRIV PRIV [id number] [facility] 00:00:00 00:00:00 diyala_S [id number] Medic al 2023-04-25 2023-04-25 Outpatient GC_GCBZW_Ka PRIV PRIV [id number] [facility] 00:00:00 00:00:00 diyala_S [id number] Medic al 2023-04-18 2023-04-18 Outpatient GC_GCBZW_Ka PRIV PRIV [id number] [facility] 00:00:00 00:00:00 diyala_S [id number] Medic al 2023-03-14 2023-03-14 Care Glenys 2.16.840. 2.16.840.1. CLAC [id number] [facility] 21:00:00 21:15:00 Coordinati Foster [id number] Medical on Non [id number] Billable [id number] 2023-02-22 2023-02-22 Palliative Glenys 2.16.840. 2.16.840.1. C [id number] [facility] 17:30:00 18:30:00 Care Foster [id number]. [id number] GFE Medical Follow Up [id number] 2023-02-14 2023-02-14 Outpatient NIC Sanderson, KAYCEEWU SUGL [id number] [facility] 08:00:00 09:00:00 Anurag Ma [facility] 2023-02-08 2023-02-08 Outpatient Deavers_C [facility] [id number] Devoted 00:00:00 00:00:00 0511 Medica l Group 2023-02-08 2023-02-08 Outpatient Deavers_C [facility] [id number] [facility] 00:00:00 00:00:00 0626 Medica l Group 2023-01-31 2023-01-31 ESTRELLA Cuellar 2.16.840. 2.16.840.1. CLA [id number] [facility] 19:00:00 20:00:00 Deavers [id number] [id number] Medical [id number] 2023-01-22 2023-01-22 Outpatient Deavers_C [facility] [id number] Devoted 00:00:00 00:00:00 0424 Medica l Group 2023-01-22 2023-01-22 [place] [id number] [facility] 00:00:00 00:00:00 0506 Medica l Group 2022-11-27 2022-11-29 Inpatient [facility] [id number] Memoria 05:48:00 21:37:00 Secor 57 l [facility] 2022-11-28 2022-11-29 Inpatient E CHRISTIENICSHANIA, [facility] [id number] [facility] 15:38:00 15:37:00 EMMANUEL 2022-11-21 2022-11-22 Observatio [facility] [id number] Memoria 10:09:00 20:23:00 n Secor 00 [facility] 2022-11-21 2022-11-22 Outpatient E JESSISA, [facility] [id number] [facility] 08:46:00 14:23:00 PEREZ 2022-11-22 2022-11-22 (TEL) STLC STLC [id number] Co mmon 00:00:00 00:00:00 [facility] 2022-11-22 2022-11-22 Orders Doctor STEFANO [id number] Univers 00:00:00 00:00:00 Only Unassigned, TRU [id number] ity [place] [facility] 4.2.7.2.686 Carlos as [id number] [place] [address] Branch 2022-11-13 2022-11-13 OFFICE STLMLC STLMLC [id number] Co mmon 00:00:00 00:00:00 VISIT [facility] PT - CHI LEVEL 4 [facility] 2022-11-01 2022-11-01 (TEL) STLMLC STLMLC [id number] Co mmon 00:00:00 00:00:00 [facility] 2022-09-29 2022-09-29 Inpatient JAMIE Anderson [facility] [id number] [facility] 11:00:00 11:00:00 Anurag 98 [facility] 2022-09-13 2022-09-13 CAV Allegra 2.16.840. 2.16.840.1. CLAC [id number] [facility] 20:30:00 21:00:00 Revisit: Valentín [id number]. [id number] [id number] Medical Gap [id number] Closure & [id number] Clinical Check-in 2022-09-05 2022-09-05 (TEL) STLMLC STLMLC [id number] Co mmon 00:00:00 00:00:00 [facility] - [facility] 2022-08-05 2022-08-05 Emergency X YAHIR [facility] ERT [id number] Univers 12:20:00 15:34:00 CARLY dominique [facility] 2022-08-05 2022-08-05 [facility] 1.2.840.114 [id number] Univers 12:20:00 15:34:00 [id number].2.7[facility] [id number] [address] 2022-08-03 2022-08-03 [place] [id number] -[id number] [facility] 00:00:00 00:00:00 1103 Medica l Group 2022-07-27 2022-07-27 OFFICE STLMLC STLMLC [id number] Co mmon 00:00:00 00:00:00 VISIT Spirit ESTAB PT - CHI LEVEL 4 [facility] 2022-06-15 2022-06-15 OFFICE STLMLC STLMLC [id number] Co mmon 00:00:00 00:00:00 VISIT [facility] ESTAB PT - CHI LEVEL 4 [facility] 2022-06-12 2022-06-12 CAV Allegra [id number]. [id number]. CLAC [id number] [facility] 20:00:00 21:00:00 Valentín [id number] Medical [id number] 2022-04-28 2022-04-28 Ambulatory nullFlavo MNA [id number] [facility] 19:00:00 19:00:00 Pre-Reg r Neurology 14 l Lana Carter 2022-04-14 2022-04-14 Outpatient [facility]_M DMG DMG [id number] -2021 [facility] 07:15:00 07:15:00 0715 [facility] 2021-12-15 2021-12-15 (TEL) STLMLC STLMLC [id number] Co mmon 00:00:00 00:00:00 [facility] 2021-12-08 2021-12-08 (TEL) STLMLC STLMLC [id number] Co mmon 00:00:00 00:00:00 [facility] 2021-11-29 2021-11-29 OL DIG E/M STLMLC STLMLC [id number] Common 00:00:00 00:00:00 SVC 5-10 Spiri t MIN [facility] 2021-11-21 2021-11-21 (TEL) STLMLC STLMLC [id number] Co mmon 00:00:00 00:00:00 [facility] 2021-11-02 2021-11-03 Outpatient nullFlavo MNA [id number] Memoria 19:30:00 05:59:59 r Neurology 13 l Lana Carter 2021-11-02 2021-11-02 Ambulatory nullFlavo MNA [id number] Memoria 19:00:00 19:00:00 Pre-Reg r Neurology 12 l Lana Cunhaann 2021-10-26 2021-10-26 (TEL) STLMLC STLMLC [id number] Co mmon 00:00:00 00:00:00 [facility] 2021-10-17 2021-10-17 OFFICE STLMLC STLMLC [id number] Co mmon 00:00:00 00:00:00 VISIT [facility] LEVEL 4 [facility] 2021-10-03 2021-10-03 ESTRELLA Dinh [id number]. [id number]. CLAC [id number] [facility] 20:00:00 21:30:00 Valentín [id number] RZY [facility] [id number] 2021-08-29 2021-08-29 Outpatient Canales_M DMG DMG [id number] -[id number] [facility] 12:42:00 12:42:00 1129 [facility] 2021-06-28 2021-06-28 Ambulatory nullFlavo MNA [id number] Memoria 19:00:00 19:00:00 Pre-Reg r Neurology 11 l Tuckermanalbin Cunhaann 2021-05-16 2021-05-16 Outpatient STLMLC STLMLC [id number] Common 00:00:00 00:00:00 [facility] 2021-05-10 2021-05-10 Outpatient STLMLC STLMLC [id number] Common 00:00:00 00:00:00 [facility] 2021-04-12 2021-04-12 Outpatient STLMLC STLMLC [id number] Common 00:00:00 00:00:00 [facility] 2021-03-28 2021-03-28 Outpatient Olivia-Mbayo VFP VFP [id number] Village 05:32:00 05:32:00 _A_AH [id number] Family Practic e 2021-03-28 2021-03-28 (TEL) STLMLC STLMLC [id number] Co mmon 00:00:00 00:00:00 [facility] 2021-03-07 2021-03-07 Outpatient STLMLC STLMLC [id number] Common 00:00:00 00:00:00 [facility] 2021-02-08 2021-02-08 Outpatient STLMLC STLMLC [id number] Common 00:00:00 00:00:00 [facility] 2021-01-28 2021-01-30 Outside nullFlavo MNA [id number] Memoria 14:05:24 04:59:59 Medical r Neurology 01 l Records Lana Cunhaann 2021-01-18 2021-01-18 Outpatient Olivia-Mbayo VFP VFP [id number] Village 01:43:00 01:43:00 _A_AH [id number] Family Practic e 2021-01-14 2021-01-14 Outpatient Canales_M [facility] [id number] -[id number] [facility] 05:20:00 05:20:00 0416 Medica l [facility] 2021-01-14 2021-01-14 Caitlyn ARYAN MA - [id number] D evoted 00:00:00 00:00:00 Radha Choudhurya l Je[facility] VP OUTCOMES: [address] [address], [address], [place] [address] , Ph. 2021-01-14 2021-01-14 Outpatient Jerez, DMG SHIRA [id number] 00:00:00 00:00:00 Caitlyn [id number] Radha [id number] 2021-01-13 2021-01-13 [place] [id number] -2020 [facility] 05:35:00 05:35:00 0415 [facility] l [facility] 2021-01-12 2021-01-12 [place] [id number] -2020 [facility] 04:16:00 04:16:00 0414 [facility] 2020-12-24 2020-12-25 Outpatient nullFlavo MNA [id number] Memoria 18:45:00 04:59:59 r Neurology 10 l Lana Secor 2020-12-09 2020-12-09 Outpatient STLMLC STLMLC [id number] Common 00:00:00 00:00:00 [facility] 2020-12-09 2020-12-09 Outpatient STLMLC STLMLC [id number] Common 00:00:00 00:00:00 [facility] 2020-11-30 2020-11-30 Outpatient STLMLC STLMLC [id number] Common 00:00:00 00:00:00 [facility] 2020-11-23 2020-11-25 Outside nullFlavo MNA [id number] Memoria 17:49:36 05:59:59 Medical r Neurology 00 l Records Lana Cunhaann 2020-10-28 2020-10-28 Outpatient STLMLC STLC [id number] Common 00:00:00 00:00:00 [facility] 2020-10-25 2020-10-25 Outpatient STLMLC STLMLC [id number] Common 00:00:00 00:00:00 [facility] 2020-10-11 2020-10-11 Ambulatory nullFlavo MNA [id number] Memoria 21:15:00 21:15:00 [facility] 2020-09-[facility] 2020-09-29 Outpatient STLMLC STLMLC [id number] Common 00:00:00 00:00:00 [facility] 2020-09-05 2020-09-06 Observatio nullFlavo [facility] [id number] Memoria 02:36:00 21:43:00 sherif Carter 40 l [facility] 2020-08-24 2020-08-24 Ambulatory nullFlavo MNA [id number] Memoria 19:15:00 19:15:00 Pre-Reg r Neurology 08 l [facility] 2020-06-28 2020-06-28 Emergency Miller, [facility] [id number] 11:51:00 15:02:00 Sariah S [place] [id number] [place] 4.2.7.2.686 [place] [id number] [facility] 2020-06-28 2020-06-28 Emergency Miller, [facility] [id number] [facility] 11:51:00 15:02:00 Sariah S [place] [id number] [place] 4.2.7.[address] [place] [address] [id number] [facility] tania 084 [place] 2020-05-25 2020-05-26 Outpatient nullFlavo MNA [id number] Memoria 18:45:00 04:59:59 r Neurology 07 l Tuckerman Secor 2020-03-30 2020-03-30 Ambulatory nullFlavo MNA [id number] Memoria 20:15:00 20:15:00 [facility] 2020-03-24 2020-03-25 Outpatient nullFlavo MNA [id number] Memoria 14:00:00 04:59:59 r Neurology 06 l Tuckermanalbin Carter 2020-02-19 2020-02-[address] [facility], [facility] [id number] 14:18:56 16:04:00 Maria Luisa Amin [id number] [place] 4.2.7.2.686 [place] [id number] [facility] 2020-02-19 2020-02-[address] [facility], [facility] [id number] [facility] 14:18:56 16:04:00 Maria Luisa Amin [id number] ity [place] 4.2.7.2.686 [facility] [id number] [address] 2019-12-11 2019-12-11 Outpatient Olivia-Mbayo VFP P [address] [place] [address] 06:48:00 06:48:00 _A_AH 74627 Family Practic e 2019-12-11 2019-12-11 Outpatient Olivia-Mbayo VFP [facility] [address] [place] [address] 06:48:00 06:48:00 _A_AH 36585 Family Practic e 2019-12-09 2019-12-10 Emergency [facility] [id number] 21:28:34 00:05:00 Timi Amin [id number] [place] 4.2.7.2.686 [place] [id number] [facility] 2019-12-09 2019-12-10 [facility] [id number] [facility] 21:28:34 00:05:00 Timi Amin [id number] i ty of [place] 4.[address].7.[address] [place] [id number] 2019-12-09 2019-12-10 [facility] [id number] 21:28:34 00:05:00 TIMI dominique [facility] 2019-11-19 2019-11-19 Outpatient Olivia-Mbayo VFP [facility] [address] [place] [address] 07:16:00 07:16:00 _A_AH [id number] Family Practic e 2019-09-16 2019-09-16 Ambulatory nullFlavo MNA [id number] Memoria 21:00:00 21:00:00 Pre-Reg r Neurology 04 l Lana Carter 2019-07-24 2019-07-25 Outpatient nullFlavo MNA [id number] Memoria 19:15:00 04:59:59 r Neurology 03 l Lana Carter 2019-05-21 2019-05-22 Outpatient nullFlavo MNA [id number] Memoria 19:30:00 04:59:59 r Neurology 02 l Lana Carter 2019-03-21 2019-03-22 Outpatient nullFlavo MNA [id number] Memoria 19:30:00 04:59:59 r Neurology 01 l Lana Carter 2019-02-21 2019-02-22 Outpatient nullFlavo MNA [id number] Memoria 20:00:00 04:59:59 r Neurology 00 l Lana Carter Results Test Description Test Time Test Comments Results Result Comments Source CHEM PANEL 2022-11-28 09:49:00 Test Item Value Reference Range Interpretation Comme nts Glucose Lvl (test code = Glucose Lvl) 93 70-99 [facility] [employer] [id number] 09:49:00 Test Item Value Reference Range Interpretation Comments BUN (test code = BUN) 30 - [facility] [id number] 09:49:00 Test Item Value Reference Range Interpretation Comments Creatinine Lvl (test code = Creatinine 2.50 0.50-1.40 Lvl) [facility] [id number] 09:49:00 Test Item Value Reference Range Interpretation Comments Sodium Lvl (test code = Sodium Lvl) 138 135-145 [facility] [id number] 09:49:00 Test Item Value Reference Range Interpretation Comments Potassium Lvl (test code = Potassium 5.1 3.5-5.1 Lvl) [facility] [id number] 09:49:00 Test Item Value Reference Range Interpretation Comments Chloride Lvl (test code = Chloride Lvl) 108 95-109 [facility] [id number] 09:49:00 Test Item Value Reference Range Interpretation Comments CO2 (test code = CO2) 30 24-32 [facility] [id number] 09:49:00 Test Item Value Reference Range Interpretation Comments Calcium Lvl (test code = Calcium Lvl) 8.0 8.5-10.5 [facility]2023-02-28 09:49:00 Test Item Value Reference Range Interpretation Comments AGAP (test code = AGAP) 5.1 10.0-20.0 [facility]2023-02-28 09:49:00 Test Item Value Reference Range Interpretation Comments eGFR (test code = eGFR) [address] 711343-02-28 09:49:00 Test Item Value Reference Range Interpretation Comments Glucose Lvl (test code = Glucose Lvl) 93 70-99 [address] 711343-02-28 09:49:00 Test Item Value Reference Range Interpretation Comments BUN (test code = BUN) 30 7-22 [address] [place] 711343-02-28 09:49:00 Test Item Value Reference Range Interpretation Comments Creatinine Lvl (test code = Creatinine 2.50 0.50-1.40 Lvl) [facility] 09:49:00 Test Item Value Reference Range Interpretation Comments Sodium Lvl (test code = Sodium Lvl) 138 135-145 [address] 711343-02-28 09:49:00 Test Item Value Reference Range Interpretation Comments Potassium Lvl (test code = Potassium 5.1 3.5-5.1 Lvl) [facility]fxthhwCUFNDJBKG6793-45-73 09:49:00 Test Item Value Reference Range Interpretation Comments Chloride Lvl (test code = Chloride Lvl) 108 95-109 [facility]bqcphzEZZXFGWLO7679-31-29 09:49:00 Test Item Value Reference Range Interpretation Comments CO2 (test code = CO2) 30 24-32 [facility]wjkcezVIPWRGZXF0048-89-82 09:49:00 Test Item Value Reference Range Interpretation Comments Calcium Lvl (test code = Calcium Lvl) 8.0 8.5-10.5 [facility]gcrinkJTGJCOLBK1198-68-06 09:49:00 Test Item Value Reference Range Interpretation Comments AGAP (test code = AGAP) 5.1 10.0-20.0 [facility]cgbhsEZDITUIHJ9845-32-53 09:49:00 Test Item Value Reference Range Interpretation Comments eGFR (test code = eGFR) 19 [facility]VcgbqesYYVJJKRNTD4882-74-22 09:49:00 Test Item Value Reference Range Interpretation Comments Segs (test code = Segs) 49.2 45.0-75.0 [place] [address]-02-28 09:49:00 Test Item Value Reference Range Interpretation Comments Lymphocytes (test code = Lymphocytes) 33.0 20.0-40.0 [place] [address]-02-28 09:49:00 Test Item Value Reference Range Interpretation Comments Monocytes (test code = Monocytes) 10.5 2.0-12.0 [place] [address]-02-28 09:49:00 Test Item Value Reference Range Interpretation Comments Eosinophils (test code = 6.6 See_Comment [A utomated message] The Eosinophils) system which ge nerated this result tra nsmitted reference range : <=4.0. The reference r christiano was not used to int erpret this result as normal/abnormal . [place] [address]-02-28 09:49:00 Test Item Value Reference Range Interpretation Comments Basophils (test code = 0.7 See_Comment [Aut omated message] The Basophils) system which ge nerated this result tra nsmitted reference range : <=1.0. The reference r christiano was not used to int erpret this result as normal/abnormal . [place] [address]-02-28 09:49:00 Test Item Value Reference Range Interpretation Comments Neutrophils # (test code = Neutrophils 3.0 1.5-8.1 #) [place] [address]-02-28 09:49:00 Test Item Value Reference Range Interpretation Comments Lymphocytes # (test code = Lymphocytes 2.0 1.0-5.5 #) [place] [address]-02-28 09:49:00 Test Item Value Reference Range Interpretation Comments Monocytes # (test code 0.7 See_Comment [Aut omated message] The = Monocytes #) system which generated this result tra nsmitted reference range : <=0.8. The reference r christiano was not used to int erpret this result as normal/abnormal . [place] [address]-02-28 09:49:00 Test Item Value Reference Range Interpretation Comments Eosinophils # (test code 0.4 See_Comment [A utomated message] The = Eosinophils #) system [facility] generated this result tra nsmitted reference range : <=0.5. The reference r christiano was not used to int erpret this result as normal/abnormal . [facility] HospitalWsgntfyZCFVKJWANQ8204-98-86 09:49:00 Test Item Value Reference Range Interpretation Comments WBC (test code = WBC) 6.2 3.7-10.4 [facility] HospitalVjvemerAMCWNXBQOZ2867-57-53 09:49:00 Test Item Value Reference Range Interpretation Comments RBC (test code = RBC) 3.06 4.20-5.40 [facility] HospitalWezzytzEVKMZSSDLK8929-14-43 09:49:00 Test Item Value Reference Range Interpretation Comments Hgb (test code = Hgb) 9.2 12.0-16.0 [facility] HospitalFerfffkRQCHGJCHQX6444-50-64 09:49:00 Test Item Value Reference Range Interpretation Comments Hct (test code = Hct) 28.0 36.0-48.0 [facility] HospitalDpulbyeHSJEKOCMQH9726-85-56 09:49:00 Test Item Value Reference Range Interpretation Comments MCV (test code = MCV) 91.5 80.0-98.0 [facility] HospitalPiegpwdCRMIYBISKS2275-05-56 09:49:00 Test Item Value Reference Range Interpretation Comments MCH (test code = MCH) 30.0 pg 27.0-31.0 [facility] HospitalBbrjgkvSMPSQQMAIW8586-73-42 09:49:00 Test Item Value Reference Range Interpretation Comments MCHC (test code = MCHC) 32.7 32.0-36.0 [facility] HospitalXlbgzwcPEBQVCQSFE7434-52-56 09:49:00 Test Item Value Reference Range Interpretation Comments RDW (test code = RDW) 14.1 11.5-14.5 [facility] HospitalCwfdrkdSFDLBPEFMV4752-94-15 09:49:00 Test Item Value Reference Range Interpretation Comments Platelet (test code = Platelet) 136 133-450 [facility] HospitalLeiabvgBYMHTPZIHQ1455-23-04 09:49:00 Test Item Value Reference Range Interpretation Comments MPV (test code = MPV) 7.7 7.4-10.4 [facility] HospitalOrtialvSVVYZOJSRW2118-51-93 09:49:00 Test Item Value Reference Range Interpretation Comments Segs (test code = Segs) 49.2 45.0-75.0 [facility] HospitalHpiotvkSKWDUOTOND3621-70-97 09:49:00 Test Item Value Reference Range Interpretation Comments Lymphocytes (test code = Lymphocytes) 33.0 20.0-40.0 [place] [address]-02-28 09:49:00 Test Item Value Reference Range Interpretation Comments Monocytes (test code = Monocytes) 10.5 2.0-12.0 [address] [place] [address]-02-28 09:49:00 Test Item Value Reference Range Interpretation Comments Eosinophils (test code = 6.6 See_Comment [A utomated message] The Eosinophils) system which ge nerated this result tra nsmitted reference range : <=4.0. The reference r christiano was not used to int erpret this result as normal/abnormal . [place] [address]-02-28 09:49:00 Test Item Value Reference Range Interpretation Comments Basophils (test code = 0.7 See_Comment [Aut omated message] The Basophils) system which ge nerated this result tra nsmitted reference range : <=1.0. The reference r christiano was not used to int erpret this result as normal/abnormal . [place] [address]-02-28 09:49:00 Test Item Value Reference Range Interpretation Comments Neutrophils # (test code = Neutrophils 3.0 1.5-8.1 #) [place] [address]-02-28 09:49:00 Test Item Value Reference Range Interpretation Comments Lymphocytes # (test code = Lymphocytes 2.0 1.0-5.5 #) [place] [address]-02-28 09:49:00 Test Item Value Reference Range Interpretation Comments Monocytes # (test code 0.7 See_Comment [Aut omated message] The = Monocytes #) system which generated this result tra nsmitted reference range : <=0.8. The reference r christiano was not used to int erpret this result as normal/abnormal . [place] [address]-02-28 09:49:00 Test Item Value Reference Range Interpretation Comments Eosinophils # (test code 0.4 See_Comment [A utomated message] The = Eosinophils #) system whic h generated this result tra nsmitted reference range : <=0.5. The reference r christiano was not used to int erpret this result as normal/abnormal . [place] [address]-02-28 09:49:00 Test Item Value Reference Range Interpretation Comments WBC (test code = WBC) 6.2 3.7-10.4 [address] [place] [address]-02-28 09:49:00 Test Item Value Reference Range Interpretation Comments RBC (test code = RBC) 3.06 4.20-5.40 [address] [place] 633383-02-28 09:49:00 Test Item Value Reference Range Interpretation Comments Hgb (test code = Hgb) 9.2 12.0-16.0 [address] [place] [address]-02-28 09:49:00 Test Item Value Reference Range Interpretation Comments Hct (test code = Hct) 28.0 36.0-48.0 [address] [place] [address]-02-28 09:49:00 Test Item Value Reference Range Interpretation Comments MCV (test code = MCV) 91.5 80.0-98.0 [place] [address]-02-28 09:49:00 Test Item Value Reference Range Interpretation Comments MCH (test code = MCH) 30.0 pg 27.0-31.0 [place] [address]-02-28 09:49:00 Test Item Value Reference Range Interpretation Comments MCHC (test code = MCHC) 32.7 32.0-36.0 [address] [place] 633383-02-28 09:49:00 Test Item Value Reference Range Interpretation Comments RDW (test code = RDW) 14.1 11.5-14.5 [place] [address]-02-28 09:49:00 Test Item Value Reference Range Interpretation Comments Platelet (test code = Platelet) 136 133-450 [address] [place] 633383-02-28 09:49:00 Test Item Value Reference Range Interpretation Comments MPV (test code = MPV) 7.7 7.4-10.4 [place] 454363-02-28 09:49:00 Test Item Value Reference Range Interpretation Comments Glucose Lvl (test code = Glucose Lvl) 93 70-99 [address] [place] 454363-02-28 09:49:00 Test Item Value Reference Range Interpretation Comments BUN (test code = BUN) 30 7-22 [place] 454363-02-28 09:49:00 Test Item Value Reference Range Interpretation Comments Creatinine Lvl (test code = Creatinine 2.50 0.50-1.40 Lvl) [place] 454363-02-28 09:49:00 Test Item Value Reference Range Interpretation Comments Sodium Lvl (test code = Sodium Lvl) 138 135-145 [address] [place] 454363-02-28 09:49:00 Test Item Value Reference Range Interpretation Comments Potassium Lvl (test code = Potassium 5.1 3.5-5.1 Lvl) [place] 454363-02-28 09:49:00 Test Item Value Reference Range Interpretation Comments Chloride Lvl (test code = Chloride Lvl) 108 95-109 [place] [address]-02-28 09:49:00 Test Item Value Reference Range Interpretation Comments CO2 (test code = CO2) 30 24-32 [address] [address]-02-28 09:49:00 Test Item Value Reference Range Interpretation Comments Calcium Lvl (test code = Calcium Lvl) 8.0 8.5-10.5 [place] 454363-02-28 09:49:00 Test Item Value Reference Range Interpretation Comments AGAP (test code = AGAP) 5.1 10.0-20.0 [place] [address]-02-28 09:49:00 Test Item Value Reference Range Interpretation Comments eGFR (test code = eGFR) 19 [address] [place] [address]-02-28 09:49:00 Test Item Value Reference Range Interpretation Comments Glucose Lvl (test code = Glucose Lvl) 93 70-99 [place] [address]-02-28 09:49:00 Test Item Value Reference Range Interpretation Comments BUN (test code = BUN) 30 7-22 [address] 711343-02-28 09:49:00 Test Item Value Reference Range Interpretation Comments Creatinine Lvl (test code = Creatinine 2.50 0.50-1.40 Lvl) [place] [address]-02-28 09:49:00 Test Item Value Reference Range Interpretation Comments Sodium Lvl (test code = Sodium Lvl) 138 135-145 [place] [address]-02-28 09:49:00 Test Item Value Reference Range Interpretation Comments Potassium Lvl (test code = Potassium 5.1 3.5-5.1 Lvl) [place] [address]-02-28 09:49:00 Test Item Value Reference Range Interpretation Comments Chloride Lvl (test code = Chloride Lvl) 108 95-109 [place] [address]-02-28 09:49:00 Test Item Value Reference Range Interpretation Comments CO2 (test code = CO2) 30 24-32 [facility]kMTSFCWKMN0589-34-58 09:49:00 Test Item Value Reference Range Interpretation Comments Calcium Lvl (test code = Calcium Lvl) 8.0 8.5-10.5 [facility]orgutdMOEKARJHM2114-18-45 09:49:00 Test Item Value Reference Range Interpretation Comments AGAP (test code = AGAP) 5.1 10.0-20.0 [facility]twnoraONKHYCOIS6213-34-17 09:49:00 Test Item Value Reference Range Interpretation Comments eGFR (test code = eGFR) 19 [facility] HospitalTheujjsLGZUDAWZLO0492-44-66 09:49:00 Test Item Value Reference Range Interpretation Comments Segs (test code = Segs) 49.2 45.0-75.0 [facility] HospitalFbhezjtIWYFORMNWW5473-92-44 09:49:00 Test Item Value Reference Range Interpretation Comments Lymphocytes (test code = Lymphocytes) 33.0 20.0-40.0 [facility] HospitalYsmxeqfLVFHCJXCHN4163-46-08 09:49:00 Test Item Value Reference Range Interpretation Comments Monocytes (test code = Monocytes) 10.5 2.0-12.0 [facility] HospitalLesdisxWWFTGLBSGR4700-61-87 09:49:00 Test Item Value Reference Range Interpretation Comments Eosinophils (test code = 6.6 See_Comment [A utomated message] The Eosinophils) system which ge nerated this result tra nsmitted reference range : <=4.0. The reference r christiano was not used to int erpret this result as normal/abnormal . [facility] HospitalPptgnisSNWMFYAMDV9194-97-42 09:49:00 Test Item Value Reference Range Interpretation Comments Basophils (test code = 0.7 See_Comment [Aut omated message] The Basophils) system which ge nerated this result tra nsmitted reference range : <=1.0. The reference r christiano was not used to int erpret this result as normal/abnormal . [facility] HospitalIfnzeyzYOMLKBOCAN6849-77-35 09:49:00 Test Item Value Reference Range Interpretation Comments Neutrophils # (test code = Neutrophils 3.0 1.5-8.1 #) [facility] HospitalWreejkfJRYVNFECLV9489-06-61 09:49:00 Test Item Value Reference Range Interpretation Comments Lymphocytes # (test code = Lymphocytes 2.0 1.0-5.5 #) [place] 633383-02-28 09:49:00 Test Item Value Reference Range Interpretation Comments Monocytes # (test code 0.7 See_Comment [Aut omated message] The = Monocytes #) system which generated this result tra nsmitted reference range : <=0.8. The reference r christiano was not used to int erpret this result as normal/abnormal . [facility] HospitalZwvcagcISPDDGPVPR2776-98-91 09:49:00 Test Item Value Reference Range Interpretation Comments Eosinophils # (test code 0.4 See_Comment [A utomated message] The = Eosinophils #) system whic h generated this result tra nsmitted reference range : <=0.5. The reference r christiano was not used to int erpret this result as normal/abnormal . [facility] HospitalVbcatezXNWIKJGOFL2109-54-50 09:49:00 Test Item Value Reference Range Interpretation Comments WBC (test code = WBC) 6.2 3.7-10.4 [place] 633383-02-28 09:49:00 Test Item Value Reference Range Interpretation Comments RBC (test code = RBC) 3.06 4.20-5.40 [place] 633383-02-28 09:49:00 Test Item Value Reference Range Interpretation Comments Hgb (test code = Hgb) 9.2 12.0-16.0 [place] 633383-02-28 09:49:00 Test Item Value Reference Range Interpretation Comments Hct (test code = Hct) 28.0 36.0-48.0 [facility] HospitalNtxxgiqOMOKHNCJFW7956-71-15 09:49:00 Test Item Value Reference Range Interpretation Comments MCV (test code = MCV) 91.5 80.0-98.0 [facility] HospitalRrgsiqfGBWLYZHUIA6713-59-68 09:49:00 Test Item Value Reference Range Interpretation Comments MCH (test code = MCH) 30.0 pg 27.0-31.0 [place] 633383-02-28 09:49:00 Test Item Value Reference Range Interpretation Comments MCHC (test code = MCHC) 32.7 32.0-36.0 [place] 633383-02-28 09:49:00 Test Item Value Reference Range Interpretation Comments RDW (test code = RDW) 14.1 11.5-14.5 [facility] HospitalMrgvvatOHQYUUCSPW2327-45-07 09:49:00 Test Item Value Reference Range Interpretation Comments Platelet (test code = Platelet) 136 133-450 [place] [address]-02-28 09:49:00 Test Item Value Reference Range Interpretation Comments MPV (test code = MPV) 7.7 7.4-10.4 [place] [address]-02-28 09:49:00 Test Item Value Reference Range Interpretation Comments Segs (test code = Segs) 49.2 45.0-75.0 [place] [address]-02-28 09:49:00 Test Item Value Reference Range Interpretation Comments Lymphocytes (test code = Lymphocytes) 33.0 20.0-40.0 [place] [address]-02-28 09:49:00 Test Item Value Reference Range Interpretation Comments Monocytes (test code = Monocytes) 10.5 2.0-12.0 [place] [address]-02-28 09:49:00 Test Item Value Reference Range Interpretation Comments Eosinophils (test code = 6.6 See_Comment [A utomated message] The Eosinophils) system which ge nerated this result tra nsmitted reference range : <=4.0. The reference r christiano was not used to int erpret this result as normal/abnormal . [place] 633383-02-28 09:49:00 Test Item Value Reference Range Interpretation Comments Basophils (test code = 0.7 See_Comment [Aut omated message] The Basophils) system which ge nerated this result tra nsmitted reference range : <=1.0. The reference r christiano was not used to int erpret this result as normal/abnormal . [place] 633383-02-28 09:49:00 Test Item Value Reference Range Interpretation Comments Neutrophils # (test code = Neutrophils 3.0 1.5-8.1 #) [place] [address]-02-28 09:49:00 Test Item Value Reference Range Interpretation Comments Lymphocytes # (test code = Lymphocytes 2.0 1.0-5.5 #) [place] [address]-02-28 09:49:00 Test Item Value Reference Range Interpretation Comments Monocytes # (test code 0.7 See_Comment [Aut omated message] The = Monocytes #) system which generated this result tra nsmitted reference range : <=0.8. The reference r christiano was not used to int erpret this result as normal/abnormal . [facility]76[facility] 09:49:00 Test Item Value Reference Range Interpretation Comments Eosinophils # (test code 0.4 See_Comment [A utomated message] The = Eosinophils #) system whic h generated this result tra nsmitted reference range : <=0.5. The reference r christiano was not used to int erpret this result as normal/abnormal . [facility]TllnnvsCFRUFLLNTB8396-01-07 09:49:00 Test Item Value Reference Range Interpretation Comments WBC (test code = WBC) 6.2 3.7-10.4 [place] 633383-02-28 09:49:00 Test Item Value Reference Range Interpretation Comments RBC (test code = RBC) 3.06 4.20-5.40 [place] 633383-02-28 09:49:00 Test Item Value Reference Range Interpretation Comments Hgb (test code = Hgb) 9.2 12.0-16.0 [place] 633383-02-28 09:49:00 Test Item Value Reference Range Interpretation Comments Hct (test code = Hct) 28.0 36.0-48.0 [place] 633383-02-28 09:49:00 Test Item Value Reference Range Interpretation Comments MCV (test code = MCV) 91.5 80.0-98.0 [place] 633383-02-28 09:49:00 Test Item Value Reference Range Interpretation Comments MCH (test code = MCH) 30.0 pg 27.0-31.0 [place] 633383-02-28 09:49:00 Test Item Value Reference Range Interpretation Comments MCHC (test code = MCHC) 32.7 32.0-36.0 [place] 633383-02-28 09:49:00 Test Item Value Reference Range Interpretation Comments RDW (test code = RDW) 14.1 11.5-14.5 [place] 633383-02-28 09:49:00 Test Item Value Reference Range Interpretation Comments Platelet (test code = Platelet) 136 133-450 [facility] HospitalKexocovEUYCOSJDIQ6609-46-31 09:49:00 Test Item Value Reference Range Interpretation Comments MPV (test code = MPV) 7.7 7.4-10.4 [place] 454363-02-28 09:49:00 Test Item Value Reference Range Interpretation Comments Glucose Lvl (test code = Glucose Lvl) 93 70-99 [place] 454363-02-28 09:49:00 Test Item Value Reference Range Interpretation Comments BUN (test code = BUN) 30 - [place] 454363-02-28 09:49:00 Test Item Value Reference Range Interpretation Comments Creatinine Lvl (test code = Creatinine 2.50 0.50-1.40 Lvl) [facility]2023-02-28 09:49:00 Test Item Value Reference Range Interpretation Comments Sodium Lvl (test code = Sodium Lvl) 138 135-145 [place] 454363-02-28 09:49:00 Test Item Value Reference Range Interpretation Comments Potassium Lvl (test code = Potassium 5.1 3.5-5.1 Lvl) [place] 454363-02-28 09:49:00 Test Item Value Reference Range Interpretation Comments Chloride Lvl (test code = Chloride Lvl) 108 95-109 [place] 454363-02-28 09:49:00 Test Item Value Reference Range Interpretation Comments CO2 (test code = CO2) 30 24-32 [place] 454363-02-28 09:49:00 Test Item Value Reference Range Interpretation Comments Calcium Lvl (test code = Calcium Lvl) 8.0 8.5-10.5 [place] 454363-02-28 09:49:00 Test Item Value Reference Range Interpretation Comments AGAP (test code = AGAP) 5.1 10.0-20.0 [place] 454363-02-28 09:49:00 Test Item Value Reference Range Interpretation Comments eGFR (test code = eGFR) 19 [place] 711343-02-28 09:49:00 Test Item Value Reference Range Interpretation Comments Glucose Lvl (test code = Glucose Lvl) 93 70-99 [place] 711343-02-28 09:49:00 Test Item Value Reference Range Interpretation Comments BUN (test code = BUN) 30 - [place] 711343-02-28 09:49:00 Test Item Value Reference Range Interpretation Comments Creatinine Lvl (test code = Creatinine 2.50 0.50-1.40 Lvl) [facility] 09:[facility]:00 Test Item Value Reference Range Interpretation Comments Sodium Lvl (test code = Sodium Lvl) 138 135-145 [place] 711343-02-28 09:49:00 Test Item Value Reference Range Interpretation Comments Potassium Lvl (test code = Potassium 5.1 3.5-5.1 Lvl) [facility]mcudlgEXAYBZXHJ1196-60-25 09:49:00 Test Item Value Reference Range Interpretation Comments Chloride Lvl (test code = Chloride Lvl) 108 95-109 [place] 711343-02-28 09:49:00 Test Item Value Reference Range Interpretation Comments CO2 (test code = CO2) 30 24-32 [place] 711343-02-28 09:49:00 Test Item Value Reference Range Interpretation Comments Calcium Lvl (test code = Calcium Lvl) 8.0 8.5-10.5 [place] 711343-02-28 09:49:00 Test Item Value Reference Range Interpretation Comments AGAP (test code = AGAP) 5.1 10.0-20.0 [place] 711343-02-28 09:49:00 Test Item Value Reference Range Interpretation Comments eGFR (test code = eGFR) 19 [facility] HospitalDygfnwxERTEJFGYME6564-05-50 09:49:00 Test Item Value Reference Range Interpretation Comments Segs (test code = Segs) 49.2 45.0-75.0 [facility] HospitalKktymrkMGJSOERXXV9527-43-75 09:49:00 Test Item Value Reference Range Interpretation Comments Lymphocytes (test code = Lymphocytes) 33.0 20.0-40.0 [place] 633383-02-28 09:49:00 Test Item Value Reference Range Interpretation Comments Monocytes (test code = Monocytes) 10.5 2.0-12.0 [place] 633383-02-28 09:49:00 Test Item Value Reference Range Interpretation Comments Eosinophils (test code = 6.6 See_Comment [A utomated message] The Eosinophils) system which ge nerated this result tra nsmitted reference range : <=4.0. The reference r christiano was not used to int erpret this result as normal/abnormal . [facility] HospitalZymxtgvSHYJQJIDQI0056-16-59 09:49:00 Test Item Value Reference Range Interpretation Comments Basophils (test code = 0.7 See_Comment [Aut omated message] The Basophils) system which ge nerated this result tra nsmitted reference range : <=1.0. The reference r christiano was not used to int erpret this result as normal/abnormal . [place] 633383-02-28 09:49:00 Test Item Value Reference Range Interpretation Comments Neutrophils # (test code = Neutrophils 3.0 1.5-8.1 #) [place] 633383-02-28 09:49:00 Test Item Value Reference Range Interpretation Comments Lymphocytes # (test code = Lymphocytes 2.0 1.0-5.5 #) [place] [address]-02-28 09:49:00 Test Item Value Reference Range Interpretation Comments Monocytes # (test code 0.7 See_Comment [Aut omated message] The = Monocytes #) system which generated this result tra nsmitted reference range : <=0.8. The reference r christiano was not used to int erpret this result as normal/abnormal . [place] 633383-02-28 09:49:00 Test Item Value Reference Range Interpretation Comments Eosinophils # (test code 0.4 See_Comment [A utomated message] The = Eosinophils #) system whic h generated this result tra nsmitted reference range : <=0.5. The reference r christiano was not used to int erpret this result as normal/abnormal . [place] 633383-02-28 09:49:00 Test Item Value Reference Range Interpretation Comments WBC (test code = WBC) 6.2 3.7-10.4 [place] 633383-02-28 09:49:00 Test Item Value Reference Range Interpretation Comments RBC (test code = RBC) 3.06 4.20-5.40 [place] [address]-02-28 09:49:00 Test Item Value Reference Range Interpretation Comments Hgb (test code = Hgb) 9.2 12.0-16.0 [place] [address]-02-28 09:49:00 Test Item Value Reference Range Interpretation Comments Hct (test code = Hct) 28.0 36.0-48.0 [place] [address]-02-28 09:49:00 Test Item Value Reference Range Interpretation Comments MCV (test code = MCV) 91.5 80.0-98.0 [facility] HospitalZzhlsisLVIYRTHVRX6258-53-05 09:49:00 Test Item Value Reference Range Interpretation Comments MCH (test code = MCH) 30.0 pg 27.0-31.0 [facility] HospitalMvojnjdPKBVSWPHIC4020-40-74 09:49:00 Test Item Value Reference Range Interpretation Comments MCHC (test code = MCHC) 32.7 32.0-36.0 [facility] HospitalCkxhqibDDRFFTPUSX2242-78-20 09:49:00 Test Item Value Reference Range Interpretation Comments RDW (test code = RDW) 14.1 11.5-14.5 [place] 633383-02-28 09:49:00 Test Item Value Reference Range Interpretation Comments Platelet (test code = Platelet) 136 133-450 [facility] HospitalDiljzogIDBOPNVCIL1043-02-01 09:49:00 Test Item Value Reference Range Interpretation Comments MPV (test code = MPV) 7.7 7.4-10.4 [place] 633383-02-28 09:49:00 Test Item Value Reference Range Interpretation Comments Segs (test code = Segs) 49.2 45.0-75.0 [facility] HospitalHzcawfjKPHUJFIYNU0606-41-36 09:49:00 Test Item Value Reference Range Interpretation Comments Lymphocytes (test code = Lymphocytes) 33.0 20.0-40.0 [facility] HospitalIbbehbjGEKBEKKBQF4688-72-16 09:49:00 Test Item Value Reference Range Interpretation Comments Monocytes (test code = Monocytes) 10.5 2.0-12.0 [facility] HospitalDaxvywwNJUVWSHJKM1712-37-01 09:49:00 Test Item Value Reference Range Interpretation Comments Eosinophils (test code = 6.6 See_Comment [A utomated message] The Eosinophils) system which ge nerated this result tra nsmitted reference range : <=4.0. The reference r christiano was not used to int erpret this result as normal/abnormal . [facility] HospitalMnzdzzsLWQPKJNCXI7353-85-31 09:49:00 Test Item Value Reference Range Interpretation Comments Basophils (test code = 0.7 See_Comment [Aut omated message] The Basophils) system which ge nerated this result tra nsmitted reference range : <=1.0. The reference r christiano was not used to int erpret this result as normal/abnormal . [place] [address]-02-28 09:49:00 Test Item Value Reference Range Interpretation Comments Neutrophils # (test code = Neutrophils 3.0 1.5-8.1 #) [place] 633383-02-28 09:49:00 Test Item Value Reference Range Interpretation Comments Lymphocytes # (test code = Lymphocytes 2.0 1.0-5.5 #) [place] 633383-02-28 09:49:00 Test Item Value Reference Range Interpretation Comments Monocytes # (test code 0.7 See_Comment [Aut omated message] The = Monocytes #) system which generated this result tra nsmitted reference range : <=0.8. The reference r christiano was not used to int erpret this result as normal/abnormal . [place] [address]-02-28 09:49:00 Test Item Value Reference Range Interpretation Comments Eosinophils # (test code 0.4 See_Comment [A utomated message] The = Eosinophils #) system whic h generated this result tra nsmitted reference range : <=0.5. The reference r christiano was not used to int erpret this result as normal/abnormal . [facility] HospitalGbeclroDXKHBGPOPI1144-09-99 09:49:00 Test Item Value Reference Range Interpretation Comments WBC (test code = WBC) 6.2 3.7-10.4 [place] [address]-02-28 09:49:00 Test Item Value Reference Range Interpretation Comments RBC (test code = RBC) 3.06 4.20-5.40 [place] 633383-02-28 09:49:00 Test Item Value Reference Range Interpretation Comments Hgb (test code = Hgb) 9.2 12.0-16.0 [place] 633383-02-28 09:49:00 Test Item Value Reference Range Interpretation Comments Hct (test code = Hct) 28.0 36.0-48.0 [place] [address]-02-28 09:49:00 Test Item Value Reference Range Interpretation Comments MCV (test code = MCV) 91.5 80.0-98.0 [place] [address]-02-28 09:49:00 Test Item Value Reference Range Interpretation Comments MCH (test code = MCH) 30.0 pg 27.0-31.0 [place] [address]-02-28 09:49:00 Test Item Value Reference Range Interpretation Comments MCHC (test code = MCHC) 32.7 32.0-36.0 [place] [address]-02-28 09:49:00 Test Item Value Reference Range Interpretation Comments RDW (test code = RDW) 14.1 11.5-14.5 [place] [address]-02-28 09:49:00 Test Item Value Reference Range Interpretation Comments Platelet (test code = Platelet) 136 133-450 [place] [address]-02-28 09:49:00 Test Item Value Reference Range Interpretation Comments MPV (test code = MPV) 7.7 7.4-10.4 [place] 454363-02-28 09:49:00 Test Item Value Reference Range Interpretation Comments Glucose Lvl (test code = Glucose Lvl) 93 70-99 [place] 454363-02-28 09:49:00 Test Item Value Reference Range Interpretation Comments BUN (test code = BUN) 30 7-22 [place] 454363-02-28 09:49:00 Test Item Value Reference Range Interpretation Comments Creatinine Lvl (test code = Creatinine 2.50 0.50-1.40 Lvl) [place] 454363-02-28 09:49:00 Test Item Value Reference Range Interpretation Comments Sodium Lvl (test code = Sodium Lvl) 138 135-145 [place] 454363-02-28 09:49:00 Test Item Value Reference Range Interpretation Comments Potassium Lvl (test code = Potassium 5.1 3.5-5.1 Lvl) [place] 454363-02-28 09:49:00 Test Item Value Reference Range Interpretation Comments Chloride Lvl (test code = Chloride Lvl) 108 95-109 [place] 454363-02-28 09:49:00 Test Item Value Reference Range Interpretation Comments CO2 (test code = CO2) 30 24-32 [place] 454363-02-28 09:49:00 Test Item Value Reference Range Interpretation Comments Calcium Lvl (test code = Calcium Lvl) 8.0 8.5-10.5 [place] 454363-02-28 09:49:00 Test Item Value Reference Range Interpretation Comments AGAP (test code = AGAP) 5.1 10.0-20.0 [facility] BXKOD5969-78-01 09:49:00 Test Item Value Reference Range Interpretation Comments eGFR (test code = eGFR) 19 [place] 711343-02-28 09:49:00 Test Item Value Reference Range Interpretation Comments Glucose Lvl (test code = Glucose Lvl) 93 70-99 [place] [address]-02-28 09:49:00 Test Item Value Reference Range Interpretation Comments BUN (test code = BUN) 30 7-22 [place] 711343-02-28 09:49:00 Test Item Value Reference Range Interpretation Comments Creatinine Lvl (test code = Creatinine 2.50 0.50-1.40 Lvl) [place] 711343-02-28 09:49:00 Test Item Value Reference Range Interpretation Comments Sodium Lvl (test code = Sodium Lvl) 138 135-145 [place] 711343-02-28 09:49:00 Test Item Value Reference Range Interpretation Comments Potassium Lvl (test code = Potassium 5.1 3.5-5.1 Lvl) [facility]UCAFLPAM2831-80-32 09:49:00 Test Item Value Reference Range Interpretation Comments Chloride Lvl (test code = Chloride Lvl) 108 95-109 [facility]iscoMbyiljsAACJYLPAJ2333-71-46 09:49:00 Test Item Value Reference Range Interpretation Comments CO2 (test code = CO2) 30 24-32 [facility]iscoVauwmevNFRSLHKOT0658-72-70 09:49:00 Test Item Value Reference Range Interpretation Comments Calcium Lvl (test code = Calcium Lvl) 8.0 8.5-10.5 [place] 711343-02-28 09:49:00 Test Item Value Reference Range Interpretation Comments AGAP (test code = AGAP) 5.1 10.0-20.0 [place] 711343-02-28 09:49:00 Test Item Value Reference Range Interpretation Comments eGFR (test code = eGFR) 19 [facility] HospitalSsjpvogSWEIUJNANT8281-49-45 09:49:00 Test Item Value Reference Range Interpretation Comments Segs (test code = Segs) 49.2 45.0-75.0 [facility] HospitalHkqaexpADJUPSXTSV6498-74-01 09:49:00 Test Item Value Reference Range Interpretation Comments Lymphocytes (test code = Lymphocytes) 33.0 20.0-40.0 [place] [address]-02-28 09:49:00 Test Item Value Reference Range Interpretation Comments Monocytes (test code = Monocytes) 10.5 2.0-12.0 [place] [address]-02-28 09:49:00 Test Item Value Reference Range Interpretation Comments Eosinophils (test code = 6.6 See_Comment [A utomated message] The Eosinophils) system which ge nerated this result tra nsmitted reference range : <=4.0. The reference r christiano was not used to int erpret this result as normal/abnormal . [place] 633383-02-28 09:49:00 Test Item Value Reference Range Interpretation Comments Basophils (test code = 0.7 See_Comment [Aut omated message] The Basophils) system which ge nerated this result tra nsmitted reference range : <=1.0. The reference r christiano was not used to int erpret this result as normal/abnormal . [place] 633383-02-28 09:49:00 Test Item Value Reference Range Interpretation Comments Neutrophils # (test code = Neutrophils 3.0 1.5-8.1 #) [place] 633383-02-28 09:49:00 Test Item Value Reference Range Interpretation Comments Lymphocytes # (test code = Lymphocytes 2.0 1.0-5.5 #) [place] 633383-02-28 09:49:00 Test Item Value Reference Range Interpretation Comments Monocytes # (test code 0.7 See_Comment [Aut omated message] The = Monocytes #) system which generated this result tra nsmitted reference range : <=0.8. The reference r christiano was not used to int erpret this result as normal/abnormal . [place] 633383-02-28 09:49:00 Test Item Value Reference Range Interpretation Comments Eosinophils # (test code 0.4 See_Comment [A utomated message] The = Eosinophils #) system whic h generated this result tra nsmitted reference range : <=0.5. The reference r christiano was not used to int erpret this result as normal/abnormal . [facility] HospitalToomnuiUOQIPKGKSL9118-47-75 09:49:00 Test Item Value Reference Range Interpretation Comments WBC (test code = WBC) 6.2 3.7-10.4 [place] [address]-02-28 09:49:00 Test Item Value Reference Range Interpretation Comments RBC (test code = RBC) 3.06 4.20-5.40 [place] [address]-02-28 09:49:00 Test Item Value Reference Range Interpretation Comments Hgb (test code = Hgb) 9.2 12.0-16.0 [place] [address]-02-28 09:49:00 Test Item Value Reference Range Interpretation Comments Hct (test code = Hct) 28.0 36.0-48.0 [place] 633383-02-28 09:49:00 Test Item Value Reference Range Interpretation Comments MCV (test code = MCV) 91.5 80.0-98.0 [place] [address]-02-28 09:49:00 Test Item Value Reference Range Interpretation Comments MCH (test code = MCH) 30.0 pg 27.0-31.0 [place] [address]-02-28 09:49:00 Test Item Value Reference Range Interpretation Comments MCHC (test code = MCHC) 32.7 32.0-36.0 [place] 633383-02-28 09:49:00 Test Item Value Reference Range Interpretation Comments RDW (test code = RDW) 14.1 11.5-14.5 [place] 633383-02-28 09:49:00 Test Item Value Reference Range Interpretation Comments Platelet (test code = Platelet) 136 133-450 [place] 633383-02-28 09:49:00 Test Item Value Reference Range Interpretation Comments MPV (test code = MPV) 7.7 7.4-10.4 [place] 633383-02-28 09:49:00 Test Item Value Reference Range Interpretation Comments Segs (test code = Segs) 49.2 45.0-75.0 [place] [address]-02-28 09:49:00 Test Item Value Reference Range Interpretation Comments Lymphocytes (test code = Lymphocytes) 33.0 20.0-40.0 [place] [address]-02-28 09:49:00 Test Item Value Reference Range Interpretation Comments Monocytes (test code = Monocytes) 10.5 2.0-12.0 [place] [address]-02-28 09:49:00 Test Item Value Reference Range Interpretation Comments Eosinophils (test code = 6.6 See_Comment [A utomated message] The Eosinophils) system which ge nerated this result tra nsmitted reference range : <=4.0. The reference r christiano was not used to int erpret this result as normal/abnormal . [place] 633383-02-28 09:49:00 Test Item Value Reference Range Interpretation Comments Basophils (test code = 0.7 See_Comment [Aut omated message] The Basophils) system which ge nerated this result tra nsmitted reference range : <=1.0. The reference r christiano was not used to int erpret this result as normal/abnormal . [place] 633383-02-28 09:49:00 Test Item Value Reference Range Interpretation Comments Neutrophils # (test code = Neutrophils 3.0 1.5-8.1 #) [place] 633383-02-28 09:49:00 Test Item Value Reference Range Interpretation Comments Lymphocytes # (test code = Lymphocytes 2.0 1.0-5.5 #) [place] 633383-02-28 09:49:00 Test Item Value Reference Range Interpretation Comments Monocytes # (test code 0.7 See_Comment [Aut omated message] The = Monocytes #) system which generated this result tra nsmitted reference range : <=0.8. The reference r christiano was not used to int erpret this result as normal/abnormal . [facility] HospitalHfhogxuYTPETKNDFQ6919-82-04 09:49:00 Test Item Value Reference Range Interpretation Comments Eosinophils # (test code 0.4 See_Comment [A utomated message] The = Eosinophils #) system whic h generated this result tra nsmitted reference range : <=0.5. The reference r christiano was not used to int erpret this result as normal/abnormal . [place] 633383-02-28 09:49:00 Test Item Value Reference Range Interpretation Comments WBC (test code = WBC) 6.2 3.7-10.4 [place] 633383-02-28 09:49:00 Test Item Value Reference Range Interpretation Comments RBC (test code = RBC) 3.06 4.20-5.40 [place] 633383-02-28 09:49:00 Test Item Value Reference Range Interpretation Comments Hgb (test code = Hgb) 9.2 12.0-16.0 [place] [address]-02-28 09:49:00 Test Item Value Reference Range Interpretation Comments Hct (test code = Hct) 28.0 36.0-48.0 [place] 633383-02-28 09:49:00 Test Item Value Reference Range Interpretation Comments MCV (test code = MCV) 91.5 80.0-98.0 [place] [address]-02-28 09:49:00 Test Item Value Reference Range Interpretation Comments MCH (test code = MCH) 30.0 pg 27.0-31.0 [place] [address]-02-28 09:49:00 Test Item Value Reference Range Interpretation Comments MCHC (test code = MCHC) 32.7 32.0-36.0 [place] [address]-02-28 09:49:00 Test Item Value Reference Range Interpretation Comments RDW (test code = RDW) 14.1 11.5-14.5 [place] [address]-02-28 09:49:00 Test Item Value Reference Range Interpretation Comments Platelet (test code = Platelet) 136 133-450 [place] [address]-02-28 09:49:00 Test Item Value Reference Range Interpretation Comments MPV (test code = MPV) 7.7 7.4-10.4 [place] 454363-02-28 09:49:00 Test Item Value Reference Range Interpretation Comments Glucose Lvl (test code = Glucose Lvl) 93 70-99 [place] 454363-02-28 09:49:00 Test Item Value Reference Range Interpretation Comments BUN (test code = BUN) 30 7-22 [place] [address]-02-28 09:49:00 Test Item Value Reference Range Interpretation Comments Creatinine Lvl (test code = Creatinine 2.50 0.50-1.40 Lvl) [place] 454363-02-28 09:49:00 Test Item Value Reference Range Interpretation Comments Sodium Lvl (test code = Sodium Lvl) 138 135-145 [place] 454363-02-28 09:49:00 Test Item Value Reference Range Interpretation Comments Potassium Lvl (test code = Potassium 5.1 3.5-5.1 Lvl) [place] 454363-02-28 09:49:00 Test Item Value Reference Range Interpretation Comments Chloride Lvl (test code = Chloride Lvl) 108 95-109 [place] 454363-02-28 09:49:00 Test Item Value Reference Range Interpretation Comments CO2 (test code = CO2) 30 - [place] 454363-02-28 09:49:00 Test Item Value Reference Range Interpretation Comments Calcium Lvl (test code = Calcium Lvl) 8.0 8.5-10.5 [place] 454363-02-28 09:49:00 Test Item Value Reference Range Interpretation Comments AGAP (test code = AGAP) 5.1 10.0-20.0 [place] 454363-02-28 09:49:00 Test Item Value Reference Range Interpretation Comments eGFR (test code = eGFR) 19 [place] 711343-02-28 09:49:00 Test Item Value Reference Range Interpretation Comments Glucose Lvl (test code = Glucose Lvl) 93 70-99 [place] 711343-02-28 09:49:00 Test Item Value Reference Range Interpretation Comments BUN (test code = BUN) 30 [facility] 09:49:00 Test Item Value Reference Range Interpretation Comments Creatinine Lvl (test code = Creatinine 2.50 0.50-1.40 Lvl) [facility]wt[facility]ufvZCMKYBHMF1801-16-01 09:49:00 Test Item Value Reference Range Interpretation Comments Sodium Lvl (test code = Sodium Lvl) 138 135-145 [facility]kowdsnNAZWIYSYI2429-60-80 09:49:00 Test Item Value Reference Range Interpretation Comments Potassium Lvl (test code = Potassium 5.1 3.5-5.1 Lvl) [place] 711343-02-28 09:49:00 Test Item Value Reference Range Interpretation Comments Chloride Lvl (test code = Chloride Lvl) 108 95-109 [place] 711343-02-28 09:49:00 Test Item Value Reference Range Interpretation Comments CO2 (test code = CO2) 30 - [facility]MrwpdupGBMKGUJLC5077-49-50 09:49:00 Test Item Value Reference Range Interpretation Comments Calcium Lvl (test code = Calcium Lvl) 8.0 8.5-10.5 [address]02-28 09:49:00 Test Item Value Reference Range Interpretation Comments AGAP (test code = AGAP) 5.1 10.0-20.0 [place] [address]-02-28 09:49:00 Test Item Value Reference Range Interpretation Comments eGFR (test code = eGFR) 19 [place] 633383-02-28 09:49:00 Test Item Value Reference Range Interpretation Comments Segs (test code = Segs) 49.2 45.0-75.0 [place] 633383-02-28 09:49:00 Test Item Value Reference Range Interpretation Comments Lymphocytes (test code = Lymphocytes) 33.0 20.0-40.0 [place] [address]-02-28 09:49:00 Test Item Value Reference Range Interpretation Comments Monocytes (test code = Monocytes) 10.5 2.0-12.0 [place] 633383-02-28 09:49:00 Test Item Value Reference Range Interpretation Comments Eosinophils (test code = 6.6 See_Comment [A utomated message] The Eosinophils) system which ge nerated this result tra nsmitted reference range : <=4.0. The reference r christiano was not used to int erpret this result as normal/abnormal . [place] 633383-02-28 09:49:00 Test Item Value Reference Range Interpretation Comments Basophils (test code = 0.7 See_Comment [Aut omated message] The Basophils) system which ge nerated this result tra nsmitted reference range : <=1.0. The reference r christiano was not used to int erpret this result as normal/abnormal . [place] 633383-02-28 09:49:00 Test Item Value Reference Range Interpretation Comments Neutrophils # (test code = Neutrophils 3.0 1.5-8.1 #) [place] 633383-02-28 09:49:00 Test Item Value Reference Range Interpretation Comments Lymphocytes # (test code = Lymphocytes 2.0 1.0-5.5 #) [place] 633383-02-28 09:49:00 Test Item Value Reference Range Interpretation Comments Monocytes # (test code 0.7 See_Comment [Aut omated message] The = Monocytes #) system which generated this result tra nsmitted reference range : <=0.8. The reference r christiano was not used to int erpret this result as normal/abnormal . [facility]AtjlqxaVSUAGLQLJY4117-59-78 09:49:00 Test Item Value Reference Range Interpretation Comments Eosinophils # (test code 0.4 See_Comment [A utomated message] The = Eosinophils #) system [employer] generated this result tra nsmitted reference range : <=0.5. The reference r christiano was not used to int erpret this result as normal/abnormal . [facility] HospitalRzmjltjDJNSFEZJDP3584-84-06 09:49:00 Test Item Value Reference Range Interpretation Comments WBC (test code = WBC) 6.2 3.7-10.4 [place] [address]-02-28 09:49:00 Test Item Value Reference Range Interpretation Comments RBC (test code = RBC) 3.06 4.20-5.40 [place] [address]-02-28 09:49:00 Test Item Value Reference Range Interpretation Comments Hgb (test code = Hgb) 9.2 12.0-16.0 [place] 633383-02-28 09:49:00 Test Item Value Reference Range Interpretation Comments Hct (test code = Hct) 28.0 36.0-48.0 [place] 633383-02-28 09:49:00 Test Item Value Reference Range Interpretation Comments MCV (test code = MCV) 91.5 80.0-98.0 [place] [address]-02-28 09:49:00 Test Item Value Reference Range Interpretation Comments MCH (test code = MCH) 30.0 pg 27.0-31.0 [place] 633383-02-28 09:49:00 Test Item Value Reference Range Interpretation Comments MCHC (test code = MCHC) 32.7 32.0-36.0 [place] 633383-02-28 09:49:00 Test Item Value Reference Range Interpretation Comments RDW (test code = RDW) 14.1 11.5-14.5 [place] 633383-02-28 09:49:00 Test Item Value Reference Range Interpretation Comments Platelet (test code = Platelet) 136 133-450 [place] 633383-02-28 09:49:00 Test Item Value Reference Range Interpretation Comments MPV (test code = MPV) 7.7 7.4-10.4 [place] [address]-02-28 09:49:00 Test Item Value Reference Range Interpretation Comments Segs (test code = Segs) 49.2 45.0-75.0 [place] [address]-02-28 09:49:00 Test Item Value Reference Range Interpretation Comments Lymphocytes (test code = Lymphocytes) 33.0 20.0-40.0 [place] [address]-02-28 09:49:00 Test Item Value Reference Range Interpretation Comments Monocytes (test code = Monocytes) 10.5 2.0-12.0 [address]02-28 09:49:00 Test Item Value Reference Range Interpretation Comments Eosinophils (test code = 6.6 See_Comment [A utomated message] The Eosinophils) system which ge nerated this result tra nsmitted reference range : <=4.0. The reference r christiano was not used to int erpret this result as normal/abnormal . [place] [address]-02-28 09:49:00 Test Item Value Reference Range Interpretation Comments Basophils (test code = 0.7 See_Comment [Aut omated message] The Basophils) system which ge nerated this result tra nsmitted reference range : <=1.0. The reference r christiano was not used to int erpret this result as normal/abnormal . [place] [address]-02-28 09:49:00 Test Item Value Reference Range Interpretation Comments Neutrophils # (test code = Neutrophils 3.0 1.5-8.1 #) [place] [address]-02-28 09:49:00 Test Item Value Reference Range Interpretation Comments Lymphocytes # (test code = Lymphocytes 2.0 1.0-5.5 #) [place] [address]-02-28 09:49:00 Test Item Value Reference Range Interpretation Comments Monocytes # (test code 0.7 See_Comment [Aut omated message] The = Monocytes #) system which generated this result tra nsmitted reference range : <=0.8. The reference r christiano was not used to int erpret this result as normal/abnormal . [place] [address]-02-28 09:49:00 Test Item Value Reference Range Interpretation Comments Eosinophils # (test code 0.4 See_Comment [A utomated message] The = Eosinophils #) system whic h generated this result tra nsmitted reference range : <=0.5. The reference r christiano was not used to int erpret this result as normal/abnormal . [facility] HospitalYsnoqntGZGCBRALUP9409-71-68 09:49:00 Test Item Value Reference Range Interpretation Comments WBC (test code = WBC) 6.2 3.7-10.4 [place] 633383-02-28 09:49:00 Test Item Value Reference Range Interpretation Comments RBC (test code = RBC) 3.06 4.20-5.40 [place] [address]-02-28 09:49:00 Test Item Value Reference Range Interpretation Comments Hgb (test code = Hgb) 9.2 12.0-16.0 [place] [address]-02-28 09:49:00 Test Item Value Reference Range Interpretation Comments Hct (test code = Hct) 28.0 36.0-48.0 [place] 633383-02-28 09:49:00 Test Item Value Reference Range Interpretation Comments MCV (test code = MCV) 91.5 80.0-98.0 [place] 633383-02-28 09:49:00 Test Item Value Reference Range Interpretation Comments MCH (test code = MCH) 30.0 pg 27.0-31.0 [place] 633383-02-28 09:49:00 Test Item Value Reference Range Interpretation Comments MCHC (test code = MCHC) 32.7 32.0-36.0 [place] 633383-02-28 09:49:00 Test Item Value Reference Range Interpretation Comments RDW (test code = RDW) 14.1 11.5-14.5 [place] 633383-02-28 09:49:00 Test Item Value Reference Range Interpretation Comments Platelet (test code = Platelet) 136 133-450 [place] 633383-02-28 09:49:00 Test Item Value Reference Range Interpretation Comments MPV (test code = MPV) 7.7 7.4-10.4 [place] 454363-02-28 09:49:00 Test Item Value Reference Range Interpretation Comments Glucose Lvl (test code = Glucose Lvl) 93 70-99 [facility]2023-02-28 09:49:00 Test Item Value Reference Range Interpretation Comments BUN (test code = BUN) 30 7- [place] 454363-02-28 09:49:00 Test Item Value Reference Range Interpretation Comments Creatinine Lvl (test code = Creatinine 2.50 0.50-1.40 Lvl) [place] 454363-02-28 09:49:00 Test Item Value Reference Range Interpretation Comments Sodium Lvl (test code = Sodium Lvl) 138 135-145 [place] 454363-02-28 09:49:00 Test Item Value Reference Range Interpretation Comments Potassium Lvl (test code = Potassium 5.1 3.5-5.1 Lvl) [place] 454363-02-28 09:49:00 Test Item Value Reference Range Interpretation Comments Chloride Lvl (test code = Chloride Lvl) 108 95-109 [place] 454363-02-28 09:49:00 Test Item Value Reference Range Interpretation Comments CO2 (test code = CO2) 30 24-32 [place] 454363-02-28 09:49:00 Test Item Value Reference Range Interpretation Comments Calcium Lvl (test code = Calcium Lvl) 8.0 8.5-10.5 [place] 454363-02-28 09:49:00 Test Item Value Reference Range Interpretation Comments AGAP (test code = AGAP) 5.1 10.0-20.0 [place] 454363-02-28 09:49:00 Test Item Value Reference Range Interpretation Comments eGFR (test code = eGFR) 19 [place] 711343-02-28 09:49:00 Test Item Value Reference Range Interpretation Comments Glucose Lvl (test code = Glucose Lvl) 93 70-99 [place] [address]-02-28 09:49:00 Test Item Value Reference Range Interpretation Comments BUN (test code = BUN) 30 7- [place] 711343-02-28 09:49:00 Test Item Value Reference Range Interpretation Comments Creatinine Lvl (test code = Creatinine 2.50 0.50-1.40 Lvl) [place] 711343-02-28 09:49:00 Test Item Value Reference Range Interpretation Comments Sodium Lvl (test code = Sodium Lvl) 138 135-145 [place] 711343-02-28 09:49:00 Test Item Value Reference Range Interpretation Comments Potassium Lvl (test code = Potassium 5.1 3.5-5.1 Lvl) [facility]LSF[facility]ZSQ1444[facility]97-[facility] 09:49:00 Test Item Value Reference Range Interpretation Comments Chloride Lvl (test code = Chloride Lvl) 108 95-109 [place] 711343-02-28 09:49:00 Test Item Value Reference Range Interpretation Comments CO2 (test code = CO2) 30 24-32 [facility]vqntcnNKRKYPVFU2323-64-44 09:49:00 Test Item Value Reference Range Interpretation Comments Calcium Lvl (test code = Calcium Lvl) 8.0 8.5-10.5 [place] 711343-02-28 09:49:00 Test Item Value Reference Range Interpretation Comments AGAP (test code = AGAP) 5.1 10.0-20.0 [place] 711343-02-28 09:49:00 Test Item Value Reference Range Interpretation Comments eGFR (test code = eGFR) 19 [facility] HospitalCcyunhvCFRPJFFEOX9059-85-56 09:49:00 Test Item Value Reference Range Interpretation Comments Segs (test code = Segs) 49.2 45.0-75.0 [facility] HospitalXhggcfdJESINIHWBG7347-20-64 09:49:00 Test Item Value Reference Range Interpretation Comments Lymphocytes (test code = Lymphocytes) 33.0 20.0-40.0 [facility] HospitalMqoebkxQGRHYULWBC2550-24-81 09:49:00 Test Item Value Reference Range Interpretation Comments Monocytes (test code = Monocytes) 10.5 2.0-12.0 [place] 633383-02-28 09:49:00 Test Item Value Reference Range Interpretation Comments Eosinophils (test code = 6.6 See_Comment [A utomated message] The Eosinophils) system which ge nerated this result tra nsmitted reference range : <=4.0. The reference r christiano was not used to int erpret this result as normal/abnormal . [facility] HospitalZhdbxajZHZFPMHTXP2128-66-80 09:49:00 Test Item Value Reference Range Interpretation Comments Basophils (test code = 0.7 See_Comment [Aut omated message] The Basophils) system which ge nerated this result tra nsmitted reference range : <=1.0. The reference r christiano was not used to int erpret this result as normal/abnormal . [place] 633383-02-28 09:49:00 Test Item Value Reference Range Interpretation Comments Neutrophils # (test code = Neutrophils 3.0 1.5-8.1 #) [facility] HospitalKpompakSGKTEATUCY0076-56-58 09:49:00 Test Item Value Reference Range Interpretation Comments Lymphocytes # (test code = Lymphocytes 2.0 1.0-5.5 #) [place] 633383-02-28 09:49:00 Test Item Value Reference Range Interpretation Comments Monocytes # (test code 0.7 See_Comment [Aut omated message] The = Monocytes #) system which generated this result tra nsmitted reference range : <=0.8. The reference r christiano was not used to int erpret this result as normal/abnormal . [facility] HospitalGrvikxgVHAEHDCJKN1981-18-18 09:49:00 Test Item Value Reference Range Interpretation Comments Eosinophils # (test code 0.4 See_Comment [A utomated message] The = Eosinophils #) system whic h generated this result tra nsmitted reference range : <=0.5. The reference r christiano was not used to int erpret this result as normal/abnormal . [facility] HospitalYygywqwIXWKLMTLEO6056-07-77 09:49:00 Test Item Value Reference Range Interpretation Comments WBC (test code = WBC) 6.2 3.7-10.4 [facility] HospitalNquucfgDWLGBMYQAB1202-16-37 09:49:00 Test Item Value Reference Range Interpretation Comments RBC (test code = RBC) 3.06 4.20-5.40 [facility] HospitalTncvgohBLJTRVBAJF2113-61-98 09:49:00 Test Item Value Reference Range Interpretation Comments Hgb (test code = Hgb) 9.2 12.0-16.0 [place] 633383-02-28 09:49:00 Test Item Value Reference Range Interpretation Comments Hct (test code = Hct) 28.0 36.0-48.0 [place] 633383-02-28 09:49:00 Test Item Value Reference Range Interpretation Comments MCV (test code = MCV) 91.5 80.0-98.0 [place] 633383-02-28 09:49:00 Test Item Value Reference Range Interpretation Comments MCH (test code = MCH) 30.0 pg 27.0-31.0 [place] [address]-02-28 09:49:00 Test Item Value Reference Range Interpretation Comments MCHC (test code = MCHC) 32.7 32.0-36.0 [place] [address]-02-28 09:49:00 Test Item Value Reference Range Interpretation Comments RDW (test code = RDW) 14.1 11.5-14.5 [place] [address]-02-28 09:49:00 Test Item Value Reference Range Interpretation Comments Platelet (test code = Platelet) 136 133-450 [place] [address]-02-28 09:49:00 Test Item Value Reference Range Interpretation Comments MPV (test code = MPV) 7.7 7.4-10.4 [place] [address]-02-28 09:49:00 Test Item Value Reference Range Interpretation Comments Segs (test code = Segs) 49.2 45.0-75.0 [place] [address]-02-28 09:49:00 Test Item Value Reference Range Interpretation Comments Lymphocytes (test code = Lymphocytes) 33.0 20.0-40.0 [place] [address]-02-28 09:49:00 Test Item Value Reference Range Interpretation Comments Monocytes (test code = Monocytes) 10.5 2.0-12.0 [place] [address]-02-28 09:49:00 Test Item Value Reference Range Interpretation Comments Eosinophils (test code = 6.6 See_Comment [A utomated message] The Eosinophils) system which ge nerated this result tra nsmitted reference range : <=4.0. The reference r christiano was not used to int erpret this result as normal/abnormal . [place] 633383-02-28 09:49:00 Test Item Value Reference Range Interpretation Comments Basophils (test code = 0.7 See_Comment [Aut omated message] The Basophils) system which ge nerated this result tra nsmitted reference range : <=1.0. The reference r christiano was not used to int erpret this result as normal/abnormal . [place] [address]-02-28 09:49:00 Test Item Value Reference Range Interpretation Comments Neutrophils # (test code = Neutrophils 3.0 1.5-8.1 #) [place] 633383-02-28 09:49:00 Test Item Value Reference Range Interpretation Comments Lymphocytes # (test code = Lymphocytes 2.0 1.0-5.5 #) [place] 633383-02-28 09:49:00 Test Item Value Reference Range Interpretation Comments Monocytes # (test code 0.7 See_Comment [Aut omated message] The = Monocytes #) system which generated this result tra nsmitted reference range : <=0.8. The reference r christiano was not used to int erpret this result as normal/abnormal . [place] 633383-02-28 09:49:00 Test Item Value Reference Range Interpretation Comments Eosinophils # (test code 0.4 See_Comment [A utomated message] The = Eosinophils #) system whic h generated this result tra nsmitted reference range : <=0.5. The reference r christiano was not used to int erpret this result as normal/abnormal . [place] 633383-02-28 09:49:00 Test Item Value Reference Range Interpretation Comments WBC (test code = WBC) 6.2 3.7-10.4 [place] 633383-02-28 09:49:00 Test Item Value Reference Range Interpretation Comments RBC (test code = RBC) 3.06 4.20-5.40 [place] [address]-02-28 09:49:00 Test Item Value Reference Range Interpretation Comments Hgb (test code = Hgb) 9.2 12.0-16.0 [place] 633383-02-28 09:49:00 Test Item Value Reference Range Interpretation Comments Hct (test code = Hct) 28.0 36.0-48.0 [place] 633383-02-28 09:49:00 Test Item Value Reference Range Interpretation Comments MCV (test code = MCV) 91.5 80.0-98.0 [place] [address]-02-28 09:49:00 Test Item Value Reference Range Interpretation Comments MCH (test code = MCH) 30.0 pg 27.0-31.0 [place] 633383-02-28 09:49:00 Test Item Value Reference Range Interpretation Comments MCHC (test code = MCHC) 32.7 32.0-36.0 [place] 633383-02-28 09:49:00 Test Item Value Reference Range Interpretation Comments RDW (test code = RDW) 14.1 11.5-14.5 [place] [address]-02-28 09:49:00 Test Item Value Reference Range Interpretation Comments Platelet (test code = Platelet) 136 133-450 [place] 633383-02-28 09:49:00 Test Item Value Reference Range Interpretation Comments MPV (test code = MPV) 7.7 7.4-10.4 [place] 454363-02-28 09:49:00 Test Item Value Reference Range Interpretation Comments Glucose Lvl (test code = Glucose Lvl) 93 70-99 [place] 454363-02-28 09:49:00 Test Item Value Reference Range Interpretation Comments BUN (test code = BUN) 30 7-22 [place] 454363-02-28 09:49:00 Test Item Value Reference Range Interpretation Comments Creatinine Lvl (test code = Creatinine 2.50 0.50-1.40 Lvl) [place] 454363-02-28 09:49:00 Test Item Value Reference Range Interpretation Comments Sodium Lvl (test code = Sodium Lvl) 138 135-145 [place] 454363-02-28 09:49:00 Test Item Value Reference Range Interpretation Comments Potassium Lvl (test code = Potassium 5.1 3.5-5.1 Lvl) [place] 454363-02-28 09:49:00 Test Item Value Reference Range Interpretation Comments Chloride Lvl (test code = Chloride Lvl) 108 95-109 [place] 454363-02-28 09:49:00 Test Item Value Reference Range Interpretation Comments CO2 (test code = CO2) 30 24-32 [place] 454363-02-28 09:49:00 Test Item Value Reference Range Interpretation Comments Calcium Lvl (test code = Calcium Lvl) 8.0 8.5-10.5 [place] 454363-02-28 09:49:00 Test Item Value Reference Range Interpretation Comments AGAP (test code = AGAP) 5.1 10.0-20.0 [place] 454363-02-28 09:49:00 Test Item Value Reference Range Interpretation Comments eGFR (test code = eGFR) 19 [place] 711343-02-28 09:49:00 Test Item Value Reference Range Interpretation Comments Glucose Lvl (test code = Glucose Lvl) 93 70-99 [facility]qvkjaoPUAVWCKWD2958-02-54 09:49:00 Test Item Value Reference Range Interpretation Comments BUN (test code = BUN) 30 7-22 [facility]XyyudqaVLMYZGJVL0447-33-34 09:49:00 Test Item Value Reference Range Interpretation Comments Creatinine Lvl (test code = Creatinine 2.50 0.50-1.40 Lvl) [facility]EpdhsswPMARKSYJN2116-35-16 09:49:00 Test Item Value Reference Range Interpretation Comments Sodium Lvl (test code = Sodium Lvl) 138 135-145 [facility]OhhclskQMJTOTVXD7892-27-51 09:49:00 Test Item Value Reference Range Interpretation Comments Potassium Lvl (test code = Potassium 5.1 3.5-5.1 Lvl) [facility]XcekntgMXHPUYKAJ9130-82-65 09:49:00 Test Item Value Reference Range Interpretation Comments Chloride Lvl (test code = Chloride Lvl) 108 95-109 [facility]iscoWrahlznSDDCFULNH0479-72-69 09:49:00 Test Item Value Reference Range Interpretation Comments CO2 (test code = CO2) 30 24-32 [facility]iscoEroiudtKHEVDIDNL7603-03-41 09:49:00 Test Item Value Reference Range Interpretation Comments Calcium Lvl (test code = Calcium Lvl) 8.0 8.5-10.5 [facility]iscoLkecsglAPGJYRVST2694-38-99 09:49:00 Test Item Value Reference Range Interpretation Comments AGAP (test code = AGAP) 5.1 10.0-20.0 [facility]FxywplmDZDWGZEQB3085-54-03 09:49:00 Test Item Value Reference Range Interpretation Comments eGFR (test code = eGFR) 19 [facility] HospitalGodimqgEOTLSGSXAZ1898-68-76 09:49:00 Test Item Value Reference Range Interpretation Comments Segs (test code = Segs) 49.2 45.0-75.0 [facility] HospitalWqrnngyFFBGNTVBBF8609-62-08 09:49:00 Test Item Value Reference Range Interpretation Comments Lymphocytes (test code = Lymphocytes) 33.0 20.0-40.0 [facility] HospitalHyhtgqlPKUQDVBOBO2734-97-46 09:49:00 Test Item Value Reference Range Interpretation Comments Monocytes (test code = Monocytes) 10.5 2.0-12.0 [facility] HospitalMeriiknMGSTYUDGHF0297-89-43 09:49:00 Test Item Value Reference Range Interpretation Comments Eosinophils (test code = 6.6 See_Comment [A utomated message] The Eosinophils) system which ge nerated this result tra nsmitted reference range : <=4.0. The reference r christiano was not used to int erpret this result as normal/abnormal . [place] 633383-02-28 09:49:00 Test Item Value Reference Range Interpretation Comments Basophils (test code = 0.7 See_Comment [Aut omated message] The Basophils) system which ge nerated this result tra nsmitted reference range : <=1.0. The reference r christiano was not used to int erpret this result as normal/abnormal . [place] 633383-02-28 09:49:00 Test Item Value Reference Range Interpretation Comments Neutrophils # (test code = Neutrophils 3.0 1.5-8.1 #) [place] 633383-02-28 09:49:00 Test Item Value Reference Range Interpretation Comments Lymphocytes # (test code = Lymphocytes 2.0 1.0-5.5 #) [place] 633383-02-28 09:49:00 Test Item Value Reference Range Interpretation Comments Monocytes # (test code 0.7 See_Comment [Aut omated message] The = Monocytes #) system which generated this result tra nsmitted reference range : <=0.8. The reference r christiano was not used to int erpret this result as normal/abnormal . [place] 633383-02-28 09:49:00 Test Item Value Reference Range Interpretation Comments Eosinophils # (test code 0.4 See_Comment [A utomated message] The = Eosinophils #) system whic h generated this result tra nsmitted reference range : <=0.5. The reference r christiano was not used to int erpret this result as normal/abnormal . [place] 633383-02-28 09:49:00 Test Item Value Reference Range Interpretation Comments WBC (test code = WBC) 6.2 3.7-10.4 [place] 633383-02-28 09:49:00 Test Item Value Reference Range Interpretation Comments RBC (test code = RBC) 3.06 4.20-5.40 [place] 633383-02-28 09:49:00 Test Item Value Reference Range Interpretation Comments Hgb (test code = Hgb) 9.2 12.0-16.0 [place] [address]-02-28 09:49:00 Test Item Value Reference Range Interpretation Comments Hct (test code = Hct) 28.0 36.0-48.0 [place] [address]-02-28 09:49:00 Test Item Value Reference Range Interpretation Comments MCV (test code = MCV) 91.5 80.0-98.0 [place] 633383-02-28 09:49:00 Test Item Value Reference Range Interpretation Comments MCH (test code = MCH) 30.0 pg 27.0-31.0 [place] 633383-02-28 09:49:00 Test Item Value Reference Range Interpretation Comments MCHC (test code = MCHC) 32.7 32.0-36.0 [place] [address]-02-28 09:49:00 Test Item Value Reference Range Interpretation Comments RDW (test code = RDW) 14.1 11.5-14.5 [place] 633383-02-28 09:49:00 Test Item Value Reference Range Interpretation Comments Platelet (test code = Platelet) 136 133-450 [place] 633383-02-28 09:49:00 Test Item Value Reference Range Interpretation Comments MPV (test code = MPV) 7.7 7.4-10.4 [place] [address]-02-28 09:49:00 Test Item Value Reference Range Interpretation Comments Segs (test code = Segs) 49.2 45.0-75.0 [place] 633383-02-28 09:49:00 Test Item Value Reference Range Interpretation Comments Lymphocytes (test code = Lymphocytes) 33.0 20.0-40.0 [place] [address]-02-28 09:49:00 Test Item Value Reference Range Interpretation Comments Monocytes (test code = Monocytes) 10.5 2.0-12.0 [place] [address]-02-28 09:49:00 Test Item Value Reference Range Interpretation Comments Eosinophils (test code = 6.6 See_Comment [A utomated message] The Eosinophils) system which ge nerated this result tra nsmitted reference range : <=4.0. The reference r christiano was not used to int erpret this result as normal/abnormal . [facility] HospitalKcptpxdOXMMEOYOWZ1869-94-56 09:49:00 Test Item Value Reference Range Interpretation Comments Basophils (test code = 0.7 See_Comment [Aut omated message] The Basophils) system which ge nerated this result tra nsmitted reference range : <=1.0. The reference r christiano was not used to int erpret this result as normal/abnormal . [facility] HospitalTrqzadtXLQXHXXDRN9740-05-84 09:49:00 Test Item Value Reference Range Interpretation Comments Neutrophils # (test code = Neutrophils 3.0 1.5-8.1 #) [facility] HospitalWnvqczgMPBRYXHZFI0442-58-45 09:49:00 Test Item Value Reference Range Interpretation Comments Lymphocytes # (test code = Lymphocytes 2.0 1.0-5.5 #) [facility] HospitalLigdenrFOMGSIJOIJ2094-81-14 09:49:00 Test Item Value Reference Range Interpretation Comments Monocytes # (test code 0.7 See_Comment [Aut omated message] The = Monocytes #) system which generated this result tra nsmitted reference range : <=0.8. The reference r christiano was not used to int erpret this result as normal/abnormal . [facility] HospitalToasqkySFNDMQOXRE6978-57-88 09:49:00 Test Item Value Reference Range Interpretation Comments Eosinophils # (test code 0.4 See_Comment [A utomated message] The = Eosinophils #) system whic h generated this result tra nsmitted reference range : <=0.5. The reference r christiano was not used to int erpret this result as normal/abnormal . [facility] HospitalMmjsnreOEOSKIPCOD9493-39-61 09:49:00 Test Item Value Reference Range Interpretation Comments WBC (test code = WBC) 6.2 3.7-10.4 [place] 633383-02-28 09:49:00 Test Item Value Reference Range Interpretation Comments RBC (test code = RBC) 3.06 4.20-5.40 [place] 633383-02-28 09:49:00 Test Item Value Reference Range Interpretation Comments Hgb (test code = Hgb) 9.2 12.0-16.0 [facility] HospitalWjecpunFJBGTQCRCI1451-92-95 09:49:00 Test Item Value Reference Range Interpretation Comments Hct (test code = Hct) 28.0 36.0-48.0 [place] [address]-02-28 09:49:00 Test Item Value Reference Range Interpretation Comments MCV (test code = MCV) 91.5 80.0-98.0 [place] [address]-02-28 09:49:00 Test Item Value Reference Range Interpretation Comments MCH (test code = MCH) 30.0 pg 27.0-31.0 [place] [address]-02-28 09:49:00 Test Item Value Reference Range Interpretation Comments MCHC (test code = MCHC) 32.7 32.0-36.0 [place] [address]-02-28 09:49:00 Test Item Value Reference Range Interpretation Comments RDW (test code = RDW) 14.1 11.5-14.5 [place] [address]-02-28 09:49:00 Test Item Value Reference Range Interpretation Comments Platelet (test code = Platelet) 136 133-450 [place] [address]-02-28 09:49:00 Test Item Value Reference Range Interpretation Comments MPV (test code = MPV) 7.7 7.4-10.4 [place] 454363-02-28 09:49:00 Test Item Value Reference Range Interpretation Comments Glucose Lvl (test code = Glucose Lvl) 93 70-99 [place] 454363-02-28 09:49:00 Test Item Value Reference Range Interpretation Comments BUN (test code = BUN) 30 7-22 [place] 454363-02-28 09:49:00 Test Item Value Reference Range Interpretation Comments Creatinine Lvl (test code = Creatinine 2.50 0.50-1.40 Lvl) [place] 454363-02-28 09:49:00 Test Item Value Reference Range Interpretation Comments Sodium Lvl (test code = Sodium Lvl) 138 135-145 [place] 454363-02-28 09:49:00 Test Item Value Reference Range Interpretation Comments Potassium Lvl (test code = Potassium 5.1 3.5-5.1 Lvl) [place] 454363-02-28 09:49:00 Test Item Value Reference Range Interpretation Comments Chloride Lvl (test code = Chloride Lvl) 108 95-109 [place] 454363-02-28 09:49:00 Test Item Value Reference Range Interpretation Comments CO2 (test code = CO2) 30 24-32 [facility]2023-02-28 09:49:00 Test Item Value Reference Range Interpretation Comments Calcium Lvl (test code = Calcium Lvl) 8.0 8.5-10.5 [facility]2023-02-28 09:49:00 Test Item Value Reference Range Interpretation Comments AGAP (test code = AGAP) 5.1 10.0-20.0 [facility]2023-02-28 09:49:00 Test Item Value Reference Range Interpretation Comments eGFR (test code = eGFR) 19 [place] 711343-02-28 09:49:00 Test Item Value Reference Range Interpretation Comments Glucose Lvl (test code = Glucose Lvl) 93 70-99 [place] 711343-02-28 09:49:00 Test Item Value Reference Range Interpretation Comments BUN (test code = BUN) 30 [facility]GI7853[facility]42 09:49:00 Test Item Value Reference Range Interpretation Comments Creatinine Lvl (test code = Creatinine 2.50 0.50-1.40 Lvl) [place] 711343-02-28 09:49:00 Test Item Value Reference Range Interpretation Comments Sodium Lvl (test code = Sodium Lvl) 138 135-145 [facility]AgehmzlYHOPVWZTK6817-09-80 09:49:00 Test Item Value Reference Range Interpretation Comments Potassium Lvl (test code = Potassium 5.1 3.5-5.1 Lvl) [facility]KqsibmhCYWYOMOXW3951-84-64 09:49:00 Test Item Value Reference Range Interpretation Comments Chloride Lvl (test code = Chloride Lvl) 108 95-109 [place] [address]-02-28 09:49:00 Test Item Value Reference Range Interpretation Comments CO2 (test code = CO2) 30 24-32 [facility]QbgugznHQYOGVUYN5482-21-34 09:49:00 Test Item Value Reference Range Interpretation Comments Calcium Lvl (test code = Calcium Lvl) 8.0 8.5-10.5 [place] 711343-02-28 09:49:00 Test Item Value Reference Range Interpretation Comments AGAP (test code = AGAP) 5.1 10.0-20.0 [place] 711343-02-28 09:49:00 Test Item Value Reference Range Interpretation Comments eGFR (test code = eGFR) 19 [facility] HospitalEnaktbxHJFKCPRWIP4126-75-70 09:49:00 Test Item Value Reference Range Interpretation Comments Segs (test code = Segs) 49.2 45.0-75.0 [facility] HospitalEcoeqhfVDZOGYHTYH8697-51-46 09:49:00 Test Item Value Reference Range Interpretation Comments Lymphocytes (test code = Lymphocytes) 33.0 20.0-40.0 [place] 633383-02-28 09:49:00 Test Item Value Reference Range Interpretation Comments Monocytes (test code = Monocytes) 10.5 2.0-12.0 [place] [address]-02-28 09:49:00 Test Item Value Reference Range Interpretation Comments Eosinophils (test code = 6.6 See_Comment [A utomated message] The Eosinophils) system which ge nerated this result tra nsmitted reference range : <=4.0. The reference r christiano was not used to int erpret this result as normal/abnormal . [facility] HospitalKatzpihZCFVENLFSO9252-05-08 09:49:00 Test Item Value Reference Range Interpretation Comments Basophils (test code = 0.7 See_Comment [Aut omated message] The Basophils) system which ge nerated this result tra nsmitted reference range : <=1.0. The reference r christiano was not used to int erpret this result as normal/abnormal . [facility] HospitalZioipdvASAUPIXKSG1086-77-74 09:49:00 Test Item Value Reference Range Interpretation Comments Neutrophils # (test code = Neutrophils 3.0 1.5-8.1 #) [place] 633383-02-28 09:49:00 Test Item Value Reference Range Interpretation Comments Lymphocytes # (test code = Lymphocytes 2.0 1.0-5.5 #) [place] [address]-02-28 09:49:00 Test Item Value Reference Range Interpretation Comments Monocytes # (test code 0.7 See_Comment [Aut omated message] The = Monocytes #) system which generated this result tra nsmitted reference range : <=0.8. The reference r christiano was not used to int erpret this result as normal/abnormal . [place] [address]-02-28 09:49:00 Test Item Value Reference Range Interpretation Comments Eosinophils # (test code 0.4 See_Comment [A utomated message] The = Eosinophils #) system whic h generated this result tra nsmitted reference range : <=0.5. The reference r christiano was not used to int erpret this result as normal/abnormal . [facility] HospitalRkyxfkcSKLCQZVGLK8768-48-41 09:49:00 Test Item Value Reference Range Interpretation Comments WBC (test code = WBC) 6.2 3.7-10.4 [facility] HospitalGydsznjYIETRZXDFL2295-54-53 09:49:00 Test Item Value Reference Range Interpretation Comments RBC (test code = RBC) 3.06 4.20-5.40 [place] 633383-02-28 09:49:00 Test Item Value Reference Range Interpretation Comments Hgb (test code = Hgb) 9.2 12.0-16.0 [place] 633383-02-28 09:49:00 Test Item Value Reference Range Interpretation Comments Hct (test code = Hct) 28.0 36.0-48.0 [facility] HospitalWgdyhyuYANUVNTDMG7836-72-36 09:49:00 Test Item Value Reference Range Interpretation Comments MCV (test code = MCV) 91.5 80.0-98.0 [facility] HospitalLenegajCRBGOSXOYH1646-97-90 09:49:00 Test Item Value Reference Range Interpretation Comments MCH (test code = MCH) 30.0 pg 27.0-31.0 [facility] HospitalBeihjyvMJKFGRJHNR5915-49-79 09:49:00 Test Item Value Reference Range Interpretation Comments MCHC (test code = MCHC) 32.7 32.0-36.0 [facility] HospitalZqkjtglZIFHHYYOMD1473-48-38 09:49:00 Test Item Value Reference Range Interpretation Comments RDW (test code = RDW) 14.1 11.5-14.5 [place] 633383-02-28 09:49:00 Test Item Value Reference Range Interpretation Comments Platelet (test code = Platelet) 136 133-450 [facility] HospitalYiyacriUUMESNRZSG4033-23-63 09:49:00 Test Item Value Reference Range Interpretation Comments MPV (test code = MPV) 7.7 7.4-10.4 [place] 633383-02-28 09:49:00 Test Item Value Reference Range Interpretation Comments Segs (test code = Segs) 49.2 45.0-75.0 [place] 633383-02-28 09:49:00 Test Item Value Reference Range Interpretation Comments Lymphocytes (test code = Lymphocytes) 33.0 20.0-40.0 [place] [address]-02-28 09:49:00 Test Item Value Reference Range Interpretation Comments Monocytes (test code = Monocytes) 10.5 2.0-12.0 [place] [address]-02-28 09:49:00 Test Item Value Reference Range Interpretation Comments Eosinophils (test code = 6.6 See_Comment [A utomated message] The Eosinophils) system which ge nerated this result tra nsmitted reference range : <=4.0. The reference r christiano was not used to int erpret this result as normal/abnormal . [place] [address]-02-28 09:49:00 Test Item Value Reference Range Interpretation Comments Basophils (test code = 0.7 See_Comment [Aut omated message] The Basophils) system which ge nerated this result tra nsmitted reference range : <=1.0. The reference r christiano was not used to int erpret this result as normal/abnormal . [facility] HospitalPfnlrsoRKKGLXPKWD1005-06-52 09:49:00 Test Item Value Reference Range Interpretation Comments Neutrophils # (test code = Neutrophils 3.0 1.5-8.1 #) [place] [address]-02-28 09:49:00 Test Item Value Reference Range Interpretation Comments Lymphocytes # (test code = Lymphocytes 2.0 1.0-5.5 #) [place] [address]-02-28 09:49:00 Test Item Value Reference Range Interpretation Comments Monocytes # (test code 0.7 See_Comment [Aut omated message] The = Monocytes #) system which generated this result tra nsmitted reference range : <=0.8. The reference r christiano was not used to int erpret this result as normal/abnormal . [place] [address]-02-28 09:49:00 Test Item Value Reference Range Interpretation Comments Eosinophils # (test code 0.4 See_Comment [A utomated message] The = Eosinophils #) system whic h generated this result tra nsmitted reference range : <=0.5. The reference r christiano was not used to int erpret this result as normal/abnormal . [place] 633383-02-28 09:49:00 Test Item Value Reference Range Interpretation Comments WBC (test code = WBC) 6.2 3.7-10.4 [place] [address]-02-28 09:49:00 Test Item Value Reference Range Interpretation Comments RBC (test code = RBC) 3.06 4.20-5.40 [place] [address]-02-28 09:49:00 Test Item Value Reference Range Interpretation Comments Hgb (test code = Hgb) 9.2 12.0-16.0 [place] [address]-02-28 09:49:00 Test Item Value Reference Range Interpretation Comments Hct (test code = Hct) 28.0 36.0-48.0 [place] [address]-02-28 09:49:00 Test Item Value Reference Range Interpretation Comments MCV (test code = MCV) 91.5 80.0-98.0 [place] [address]-02-28 09:49:00 Test Item Value Reference Range Interpretation Comments MCH (test code = MCH) 30.0 pg 27.0-31.0 [place] [address]-02-28 09:49:00 Test Item Value Reference Range Interpretation Comments MCHC (test code = MCHC) 32.7 32.0-36.0 [place] [address]-02-28 09:49:00 Test Item Value Reference Range Interpretation Comments RDW (test code = RDW) 14.1 11.5-14.5 [place] [address]-02-28 09:49:00 Test Item Value Reference Range Interpretation Comments Platelet (test code = Platelet) 136 133-450 [place] 633383-02-28 09:49:00 Test Item Value Reference Range Interpretation Comments MPV (test code = MPV) 7.7 7.4-10.4 [facility]2023-02-28 09:49:00 Test Item Value Reference Range Interpretation Comments Glucose Lvl (test code = Glucose Lvl) 93 70-99 [facility]2023-02-28 09:49:00 Test Item Value Reference Range Interpretation Comments BUN (test code = BUN) 30 7-22 [place] 454363-02-28 09:49:00 Test Item Value Reference Range Interpretation Comments Creatinine Lvl (test code = Creatinine 2.50 0.50-1.40 Lvl) [place] [address]-02-28 09:49:00 Test Item Value Reference Range Interpretation Comments Sodium Lvl (test code = Sodium Lvl) 138 135-145 [place] [address]-02-28 09:49:00 Test Item Value Reference Range Interpretation Comments Potassium Lvl (test code = Potassium 5.1 3.5-5.1 Lvl) [place] 454363-02-28 09:49:00 Test Item Value Reference Range Interpretation Comments Chloride Lvl (test code = Chloride Lvl) 108 95-109 [place] [address]-02-28 09:49:00 Test Item Value Reference Range Interpretation Comments CO2 (test code = CO2) 30 24-32 [place] 454363-02-28 09:49:00 Test Item Value Reference Range Interpretation Comments Calcium Lvl (test code = Calcium Lvl) 8.0 8.5-10.5 [place] 454363-02-28 09:49:00 Test Item Value Reference Range Interpretation Comments AGAP (test code = AGAP) 5.1 10.0-20.0 [place] 454363-02-28 09:49:00 Test Item Value Reference Range Interpretation Comments eGFR (test code = eGFR) 19 [place] [address]-02-28 09:49:00 Test Item Value Reference Range Interpretation Comments Glucose Lvl (test code = Glucose Lvl) 93 70-99 [place] [address]-02-28 09:49:00 Test Item Value Reference Range Interpretation Comments BUN (test code = BUN) 30 7-22 [place] [address]-02-28 09:49:00 Test Item Value Reference Range Interpretation Comments Creatinine Lvl (test code = Creatinine 2.50 0.50-1.40 Lvl) [place] [address]-02-28 09:49:00 Test Item Value Reference Range Interpretation Comments Sodium Lvl (test code = Sodium Lvl) 138 135-145 [place] [address]-02-28 09:49:00 Test Item Value Reference Range Interpretation Comments Potassium Lvl (test code = Potassium 5.1 3.5-5.1 Lvl) [place] [address]-02-28 09:49:00 Test Item Value Reference Range Interpretation Comments Chloride Lvl (test code = Chloride Lvl) 108 95-109 [facility]azbscqTFOKSHCJS6315-96-47 09:49:00 Test Item Value Reference Range Interpretation Comments CO2 (test code = CO2) 30 24-32 [facility]iscoLigaeciGOIDACDBM0102-42-14 09:49:00 Test Item Value Reference Range Interpretation Comments Calcium Lvl (test code = Calcium Lvl) 8.0 8.5-10.5 [facility]iscoAiymmisFNLOVOQDS6143-89-77 09:49:00 Test Item Value Reference Range Interpretation Comments AGAP (test code = AGAP) 5.1 10.0-20.0 [place] 711343-02-28 09:49:00 Test Item Value Reference Range Interpretation Comments eGFR (test code = eGFR) 19 [facility] HospitalEoktrneJQIVCLKMOP1104-91-19 09:49:00 Test Item Value Reference Range Interpretation Comments Segs (test code = Segs) 49.2 45.0-75.0 [place] 633383-02-28 09:49:00 Test Item Value Reference Range Interpretation Comments Lymphocytes (test code = Lymphocytes) 33.0 20.0-40.0 [facility] HospitalKqpdrwiYJKUYXDRBC5582-30-21 09:49:00 Test Item Value Reference Range Interpretation Comments Monocytes (test code = Monocytes) 10.5 2.0-12.0 [facility] HospitalLcniynaORTOCCOXYA9880-72-45 09:49:00 Test Item Value Reference Range Interpretation Comments Eosinophils (test code = 6.6 See_Comment [A utomated message] The Eosinophils) system which ge nerated this result tra nsmitted reference range : <=4.0. The reference r christiano was not used to int erpret this result as normal/abnormal . [facility] HospitalMpwgshzQCRROFEXGA2039-45-40 09:49:00 Test Item Value Reference Range Interpretation Comments Basophils (test code = 0.7 See_Comment [Aut omated message] The Basophils) system which ge nerated this result tra nsmitted reference range : <=1.0. The reference r christiano was not used to int erpret this result as normal/abnormal . [place] 633383-02-28 09:49:00 Test Item Value Reference Range Interpretation Comments Neutrophils # (test code = Neutrophils 3.0 1.5-8.1 #) [facility] HospitalTqgcjpnIROZOEPKBS3643-60-12 09:49:00 Test Item Value Reference Range Interpretation Comments Lymphocytes # (test code = Lymphocytes 2.0 1.0-5.5 #) [facility] HospitalZjbsezqOBOTQWPGTU2690-49-37 09:49:00 Test Item Value Reference Range Interpretation Comments Monocytes # (test code 0.7 See_Comment [Aut omated message] The = Monocytes #) system which generated this result tra nsmitted reference range : <=0.8. The reference r christiano was not used to int erpret this result as normal/abnormal . [place] 633383-02-28 09:49:00 Test Item Value Reference Range Interpretation Comments Eosinophils # (test code 0.4 See_Comment [A utomated message] The = Eosinophils #) system whic h generated this result tra nsmitted reference range : <=0.5. The reference r christiano was not used to int erpret this result as normal/abnormal . [facility] HospitalAmcujapRRKNRLJAID4091-64-82 09:49:00 Test Item Value Reference Range Interpretation Comments WBC (test code = WBC) 6.2 3.7-10.4 [place] 633383-02-28 09:49:00 Test Item Value Reference Range Interpretation Comments RBC (test code = RBC) 3.06 4.20-5.40 [place] 633383-02-28 09:49:00 Test Item Value Reference Range Interpretation Comments Hgb (test code = Hgb) 9.2 12.0-16.0 [place] 633383-02-28 09:49:00 Test Item Value Reference Range Interpretation Comments Hct (test code = Hct) 28.0 36.0-48.0 [place] 633383-02-28 09:49:00 Test Item Value Reference Range Interpretation Comments MCV (test code = MCV) 91.5 80.0-98.0 [place] [address]-02-28 09:49:00 Test Item Value Reference Range Interpretation Comments MCH (test code = MCH) 30.0 pg 27.0-31.0 [place] 633383-02-28 09:49:00 Test Item Value Reference Range Interpretation Comments MCHC (test code = MCHC) 32.7 32.0-36.0 [place] 633383-02-28 09:49:00 Test Item Value Reference Range Interpretation Comments RDW (test code = RDW) 14.1 11.5-14.5 [place] [address]-02-28 09:49:00 Test Item Value Reference Range Interpretation Comments Platelet (test code = Platelet) 136 133-450 [place] [address]-02-28 09:49:00 Test Item Value Reference Range Interpretation Comments MPV (test code = MPV) 7.7 7.4-10.4 [place] [address]-02-28 09:49:00 Test Item Value Reference Range Interpretation Comments Segs (test code = Segs) 49.2 45.0-75.0 [place] [address]-02-28 09:49:00 Test Item Value Reference Range Interpretation Comments Lymphocytes (test code = Lymphocytes) 33.0 20.0-40.0 [place] [address]-02-28 09:49:00 Test Item Value Reference Range Interpretation Comments Monocytes (test code = Monocytes) 10.5 2.0-12.0 [place] [address]-02-28 09:49:00 Test Item Value Reference Range Interpretation Comments Eosinophils (test code = 6.6 See_Comment [A utomated message] The Eosinophils) system which ge nerated this result tra nsmitted reference range : <=4.0. The reference r christiano was not used to int erpret this result as normal/abnormal . [place] 633383-02-28 09:49:00 Test Item Value Reference Range Interpretation Comments Basophils (test code = 0.7 See_Comment [Aut omated message] The Basophils) system which ge nerated this result tra nsmitted reference range : <=1.0. The reference r christiano was not used to int erpret this result as normal/abnormal . [place] 633383-02-28 09:49:00 Test Item Value Reference Range Interpretation Comments Neutrophils # (test code = Neutrophils 3.0 1.5-8.1 #) [place] [address]-02-28 09:49:00 Test Item Value Reference Range Interpretation Comments Lymphocytes # (test code = Lymphocytes 2.0 1.0-5.5 #) [place] 633383-02-28 09:49:00 Test Item Value Reference Range Interpretation Comments Monocytes # (test code 0.7 See_Comment [Aut omated message] The = Monocytes #) system which generated this result tra nsmitted reference range : <=0.8. The reference r christiano was not used to int erpret this result as normal/abnormal . [facility] HospitalAeppqskTBHJOCXMZC5714-73-89 09:49:00 Test Item Value Reference Range Interpretation Comments Eosinophils # (test code 0.4 See_Comment [A utomated message] The = Eosinophils #) system whic h generated this result tra nsmitted reference range : <=0.5. The reference r christiano was not used to int erpret this result as normal/abnormal . [facility] HospitalPqllsdcSBYKOSSPPB8089-29-52 09:49:00 Test Item Value Reference Range Interpretation Comments WBC (test code = WBC) 6.2 3.7-10.4 [facility] HospitalNqtrvorHPHMUNIXAQ4823-39-91 09:49:00 Test Item Value Reference Range Interpretation Comments RBC (test code = RBC) 3.06 4.20-5.40 [facility] HospitalDqfnsveCPXCPLFYAK9600-93-46 09:49:00 Test Item Value Reference Range Interpretation Comments Hgb (test code = Hgb) 9.2 12.0-16.0 [facility] HospitalZxlsraeGMSONZCUJH6553-00-51 09:49:00 Test Item Value Reference Range Interpretation Comments Hct (test code = Hct) 28.0 36.0-48.0 [facility] HospitalNpbhkllFATXKHIOSO1068-19-17 09:49:00 Test Item Value Reference Range Interpretation Comments MCV (test code = MCV) 91.5 80.0-98.0 [facility] HospitalUuwnsmyJQFWZCHEJR4769-80-50 09:49:00 Test Item Value Reference Range Interpretation Comments MCH (test code = MCH) 30.0 pg 27.0-31.0 [facility] HospitalLxvfgivADLADSCWFC8250-54-77 09:49:00 Test Item Value Reference Range Interpretation Comments MCHC (test code = MCHC) 32.7 32.0-36.0 [facility] HospitalPbpbtlzEVSQFFSHLG4675-74-20 09:49:00 Test Item Value Reference Range Interpretation Comments RDW (test code = RDW) 14.1 11.5-14.5 [facility] HospitalXxonumlPJSJOQGCBN7277-98-75 09:49:00 Test Item Value Reference Range Interpretation Comments Platelet (test code = Platelet) 136 133-450 [facility] HospitalNiacsdoDGREWQVZBB7657-87-55 09:49:00 Test Item Value Reference Range Interpretation Comments MPV (test code = MPV) 7.7 7.4-10.4 [facility] DstvlhkNFIVTS5295-77-28 14:44:19 Test Item Value Reference Range Interpretation [...] spinal canal narrowing at C6-7. [facility]Jp[facility]vhMTTNYL6547-62-[facility] 14:44:19 Test Item Value Reference Range Interpretation [...] Additional severe spinal canal narrowing at C6-7. [facility] HospitalOshinchQSDQWG9495-59-82 14:44:19 Test Item Value Reference Range Interpretation [...] spinal canal narrowing at C6-7. [facility] Hospi[id number] 14:44:19 Test Item Value Reference Range Interpretation [...] spinal canal narrowing at C6-7. [facility] HospitalVnimdmaEVSSKI8835-85-77 14:44:19 Test Item Value Reference Range Interpretation [...] Additional severe spinal canal narrowing at C6-7. [facility] CenterSyxfqclCLPQGU5793-59-15 14:44:19 Test Item Value Reference Range Interpretation [...] spinal canal narrowing at C6-7. [facility] HospitalFmyornnLJRVAB7065-70-30 14:44:19 Test Item Value Reference Range Interpretation [...] Additional severe spinal canal narrowing at C6-7. [facility] HospitalRevrhnbXKCNGR5363-47-29 14:44:19 Test Item Value Reference Range Interpretation [...] spinal canal narrowing at C6-7. [facility] HospitalMpjhvjjIKMZJR3723-07-61 14:44:19 Test Item Value Reference Range Interpretation [...] spinal canal narrowing at C6-7. [facility] HospitalMvwqggyABBITKKWFZ8736-26-45 10:40:00 Test Item Value Reference Range Interpretation Comments Coronavirus (COVID-19) Not Detected (11/27/22 JONATHAN (test code = 4:40 AM) Coronavirus (COVID-19) JONATHAN) [facility] HospitalDbwzkwaXXFLSLVTOV5993-58-39 10:40:00 Test Item Value Reference Range Interpretation Comments Coronavirus (COVID-19) Not Detected (11/27/22 JONATHAN (test code = 4:40 AM) Coronavirus (COVID-19) JONATHAN) [place] [address]-02-27 10:40:00 Test Item Value Reference Range Interpretation Comments Coronavirus (COVID-19) Not Detected (11/27/22 JONATHAN (test code = 4:40 AM) Coronavirus (COVID-19) JONATHAN) [place] [address]-02-27 10:40:00 Test Item Value Reference Range Interpretation Comments Coronavirus (COVID-19) Not Detected (11/27/22 JONATHAN (test code = 4:40 AM) Coronavirus (COVID-19) JONATHAN) [place] [address]-02-27 10:40:00 Test Item Value Reference Range Interpretation Comments Coronavirus (COVID-19) Not Detected (11/27/22 JONATHAN (test code = 4:40 AM) Coronavirus (COVID-19) JONATHAN) [place] [address]-02-27 10:40:00 Test Item Value Reference Range Interpretation Comments Coronavirus (COVID-19) Not Detected (11/27/22 JONATHAN (test code = 4:40 AM) Coronavirus (COVID-19) JONATHAN) [place] [address]-02-27 10:40:00 Test Item Value Reference Range Interpretation Comments Coronavirus (COVID-19) Not Detected (11/27/22 JONATHAN (test code = 4:40 AM) Coronavirus (COVID-19) JONATHAN) [place] [address]-02-27 10:40:00 Test Item Value Reference Range Interpretation Comments Coronavirus (COVID-19) Not Detected (11/27/22 JONATHAN (test code = 4:40 AM) Coronavirus (COVID-19) JONATHAN) [place] [address]-02-27 10:40:00 Test Item Value Reference Range Interpretation Comments Coronavirus (COVID-19) Not Detected (11/27/22 JONATHAN (test code = 4:40 AM) Coronavirus (COVID-19) JONATHAN) [place] [address]-02-27 10:40:00 Test Item Value Reference Range Interpretation Comments Coronavirus (COVID-19) Not Detected (11/27/22 JONATHAN (test code = 4:40 AM) Coronavirus (COVID-19) JONATHAN) [place] [address]-02-27 10:40:00 Test Item Value Reference Range Interpretation Comments Coronavirus (COVID-19) Not Detected (11/27/22 JONATHAN (test code = 4:40 AM) Coronavirus (COVID-19) JONATHAN) [facility]Msx[facility]hlPPGXPAPRRE1393-57-29 10:40:00 Test Item Value Reference Range Interpretation Comments Coronavirus (COVID-19) Not Detected (11/27/22 JONATHAN (test code = 4:40 AM) Coronavirus (COVID-19) JONATHAN) [place] [id number] 10:40:00 Test Item Value Reference Range Interpretation Comments Coronavirus (COVID-19) Not Detected (11/27/22 JONATHAN (test code = 4:40 AM) Coronavirus (COVID-19) JONATHAN) [facility] HospitalVcikujrKAGTOURAPG9078-00-68 10:40:00 Test Item Value Reference Range Interpretation Comments Coronavirus (COVID-19) Not Detected (11/27/22 JONATHAN (test code = 4:40 AM) Coronavirus (COVID-19) JONATHAN) [facility] HospitalOqbssrdXCUTGYNQEC5133-98-24 10:40:00 Test Item Value Reference Range Interpretation Comments Coronavirus (COVID-19) Not Detected (11/27/22 JONATHAN (test code = 4:40 AM) Coronavirus (COVID-19) JONATHAN) [facility] HospitalQdeytcxUFYTAGKMVR4996-96-42 10:40:00 Test Item Value Reference Range Interpretation Comments Coronavirus (COVID-19) Not Detected (11/27/22 JONATHAN (test code = 4:40 AM) Coronavirus (COVID-19) JONATHAN) [facility] HospitalClmezgpEOPFQOCIHC9320-83-27 10:40:00 Test Item Value Reference Range Interpretation Comments Coronavirus (COVID-19) Not Detected (11/27/22 JONATHAN (test code = 4:40 AM) Coronavirus (COVID-19) JONATHAN) [facility] HospitalZrorutvAJIBVMDHNG1165-39-59 10:40:00 Test Item Value Reference Range Interpretation Comments Coronavirus (COVID-19) Not Detected (11/27/22 JONATHAN (test code = 4:40 AM) Coronavirus (COVID-19) JONATHAN) [place] [id number] 07:58:03 Test Item Value Reference Range Interpretation [...] at 11/27/2022 2:31 by Urbano Ashton MD [facility] HospitalXustzceBOGQLU3128-63-93 07:58:03 Test Item Value Reference Range Interpretation [...] at 11/27/2022 2:31 by Urbano Ashton MD [facility] HospitalOvpuopbQNKXQT9997-55-10 07:58:03 Test Item Value Reference Range Interpretation [...] at 11/27/2022 2:31 by Urbano Ashton MD [facility] HospitalConnizaWBOZEL1721-80-63 07:58:03 Test Item Value Reference Range Interpretation [...] at 11/27/2022 2:31 by Urbano Ashton MD [facility] HospitalVzdlpomJQPIMS9049-80-33 07:58:03 Test Item Value Reference Range Interpretation [...] at 11/27/2022 2:31 by Urbano Ashton MD [facility] HospitalTqsmzcmVBQSQN9997-06-46 07:58:03 Test Item Value Reference Range Interpretation [...] at 11/27/2022 2:31 by Urbano Ashton MD [facility] HospitalInioncnIJJVXL4297-27-29 07:58:03 Test Item Value Reference Range Interpretation [...] at 11/27/2022 2:31 by Urbano Ashton MD [facility] HospitalQwobuolCKYVUR9622-57-30 07:58:03 Test Item Value Reference Range Interpretation [...] at 11/27/2022 2:31 by Urbano Ashton MD [facility] HospitalIiqlbvpEOJZGG4778-46-14 07:58:03 Test Item Value Reference Range Interpretation [...] at 11/27/2022 2:31 by Urbano Ashton MD [facility] [id number] 07:22:00 Test Item Value Reference Range Interpretation Comments ABO/Rh (test code = ABO/Rh) O POS [facility] [id number] 07:22:00 Test Item Value Reference Range Interpretation Comments Antibody Scrn (test Negative (11/27/22 1:22 code = Antibody Scrn) AM) [facility] CenterMum[facility] [id number] 07:22:00 Test Item Value Reference Range Interpretation Comments ABO/Rh (test code = ABO/Rh) O POS [facility] CenterNanjing Gel[employer] Environmental Protection EquipmentSAINT LU[facility] [id number] 07:22:00 Test Item Value Reference Range Interpretation Comments Antibody Scrn (test Negative (11/27/22 1:22 code = Antibody Scrn) AM) [facility] CenterSilver Fox EventsNeodata Group [id number] 07:22:00 Test Item Value Reference Range Interpretation Comments ABO/Rh (test code = ABO/Rh) [facility] [id number] 07:22:00 Test Item Value Reference Range Interpretation Comments Antibody Scrn (test Negative (11/27/22 1:22 code = Antibody Scrn) AM) [facility] CenterM[facility] [id number] 07:22:00 Test Item Value Reference Range Interpretation Comments ABO/Rh (test code = ABO/Rh) [facility] [id number] 07:22:00 Test Item Value Reference Range Interpretation Comments Antibody Scrn (test Negative (11/27/22 1:22 code = Antibody Scrn) AM) [facility] CenterM[facility] [id number] 07:22:00 Test Item Value Reference Range Interpretation Comments ABO/Rh (test code = ABO/Rh) O [facility] HospitalXan[facility] [id number] 07:22:00 Test Item Value Reference Range Interpretation Comments Antibody Scrn (test Negative (11/27/22 1:22 code = Antibody Scrn) AM) [facility] CenterM[facility] [id number] 07:22:00 Test Item Value Reference Range Interpretation Comments ABO/Rh (test code = ABO/Rh) O [facility] [id number] 07:22:00 Test Item Value Reference Range Interpretation Comments Antibody Scrn (test Negative (11/27/22 1:22 code = Antibody Scrn) AM) [facility] CenterM[facility] [id number] 07:22:00 Test Item Value Reference Range Interpretation Comments ABO/Rh (test code = ABO/Rh) O [facility] [id number] 07:22:00 Test Item Value Reference Range Interpretation Comments Antibody Scrn (test Negative (11/27/22 1:22 code = Antibody Scrn) AM) [facility] [id number] 07:22:00 Test Item Value Reference Range Interpretation Comments ABO/Rh (test code = ABO/Rh) O POS [facility] [id number] 07:22:00 Test Item Value Reference Range Interpretation Comments Antibody Scrn (test Negative (11/27/22 1:22 code = Antibody Scrn) AM) [facility] CenterM[facility] [id number] 07:22:00 Test Item Value Reference Range Interpretation Comments ABO/Rh (test code = ABO/Rh) O [facility] [id number] 07:22:00 Test Item Value Reference Range Interpretation Comments Antibody Scrn (test Negative (11/27/22 1:22 code = Antibody Scrn) AM) [facility] [id number] 07:22:00 Test Item Value Reference Range Interpretation Comments ABO/Rh (test code = ABO/Rh) O [facility] [id number] 07:22:00 Test Item Value Reference Range Interpretation Comments Antibody Scrn (test Negative (11/27/22 1:22 code = Antibody Scrn) AM) [facility] [id number] 07:22:00 Test Item Value Reference Range Interpretation Comments ABO/Rh (test code = ABO/Rh) O [facility] [id number] 07:22:00 Test Item Value Reference Range Interpretation Comments Antibody Scrn (test Negative (11/27/22 1:22 code = Antibody Scrn) AM) [facility] CenterM[facility] [id number] 07:22:00 Test Item Value Reference Range Interpretation Comments ABO/Rh (test code = ABO/Rh) O [facility] [id number] 07:22:00 Test Item Value Reference Range Interpretation Comments Antibody Scrn (test Negative (11/27/22 1:22 code = Antibody Scrn) AM) [facility] [id number] 07:22:00 Test Item Value Reference Range Interpretation Comments ABO/Rh (test code = ABO/Rh) O [facility] [id number] 07:22:00 Test Item Value Reference Range Interpretation Comments Antibody Scrn (test Negative (11/27/22 1:22 code = Antibody Scrn) AM) [facility] [id number] 07:22:00 Test Item Value Reference Range Interpretation Comments ABO/Rh (test code = ABO/Rh) O [facility] [id number] 07:22:00 Test Item Value Reference Range Interpretation Comments Antibody Scrn (test Negative (11/27/22 1:22 code = Antibody Scrn) AM) [facility] [id number] 07:22:00 Test Item Value Reference Range Interpretation Comments ABO/Rh (test code = ABO/Rh) O [facility] [id number] 07:22:00 Test Item Value Reference Range Interpretation Comments Antibody Scrn (test Negative (11/27/22 1:22 code = Antibody Scrn) AM) [facility] [id number] 07:22:00 Test Item Value Reference Range Interpretation Comments ABO/Rh (test code = ABO/Rh) O [facility] [id number] 07:22:00 Test Item Value Reference Range Interpretation Comments Antibody Scrn (test Negative (11/27/22 1:22 code = Antibody Scrn) AM) [facility] [id number] 07:22:00 Test Item Value Reference Range Interpretation Comments ABO/Rh (test code = ABO/Rh) O [facility] [id number] 07:22:00 Test Item Value Reference Range Interpretation Comments Antibody Scrn (test Negative (11/27/22 1:22 code = Antibody Scrn) AM) [facility] [id number] 07:22:00 Test Item Value Reference Range Interpretation Comments ABO/Rh (test code = ABO/Rh) O [facility] [id number] 07:22:00 Test Item Value Reference Range Interpretation Comments Antibody Scrn (test Negative (11/27/22 1:22 code = Antibody Scrn) AM) [facility] [id number] 06:55:28 Test Item Value Reference Range Interpretation Comments RADRPT (test code EXAM: CT CERVICAL SPINE = RADRPT) WITHOUT CONTRASTDATE: 11/27/2022 0:49INDICATION: Status post fall, pain after trauma. Following trauma transfer for higher level of care request for outside film interpretation CT cervical spine without contrast performed [facility] None.TECHNIQUE: Volumetric CT of the cervical spine is acquired without contrast. Axial, coronal and sagittal images are provided. IV contrast: None.DLP: Refer to CT protocol formUT SECTION: ERFINDINGS: The spine is imaged from the skull base to the level of T2/T3.[employer]: Noncontributory.Bones:There is generalized decreased bone mineral density.There [...] calcifications are present.6. Agree with outside report. [facility] CenterZzqdmhoZOANPD6769-49-16 06:55:28 Test Item Value Reference Range Interpretation Comments RADRPT (test code EXAM: CT CERVICAL SPINE = RADRPT) WITHOUT CONTRASTDATE: 11/27/2022 0:49INDICATION: Status post fall, pain after trauma. Following trauma transfer for higher level of care request for outside film interpretation CT cervical spine without contrast performed 11/26/2022 [facility] None.TECHNIQUE: Volumetric CT of the cervical spine is acquired without contrast. Axial, coronal and sagittal images are provided. IV contrast: None.DLP: Refer to CT protocol formUT SECTION: ERFINDINGS: The spine is imaged from the skull base to the level of T2/T3.[employer]: Noncontributory.Bones:There is generalized decreased bone mineral density.There [...] calcifications are present.6. Agree with outside report. [facility] [id number] 06:55:28 Test Item Value Reference Range Interpretation Comments RADRPT (test code EXAM: CT CERVICAL SPINE = RADRPT) WITHOUT CONTRASTDATE: 11/27/2022 0:49INDICATION: Status post fall, pain after trauma. Following trauma transfer for higher level of care request for outside film interpretation CT cervical spine without contrast performed 11/26/2022 [facility] None.TECHNIQUE: Volumetric CT of the cervical spine is acquired without contrast. Axial, coronal and sagittal images are provided. IV contrast: None.DLP: Refer to CT protocol formUT SECTION: ERFINDINGS: The spine is imaged from the skull base to the level of T2/T3.[employer]: Noncontributory.Bones:There is generalized decreased bone mineral density.There [...] calcifications are present.6. Agree with outside report. [facility] [id number] 06:55:28 Test Item Value Reference Range Interpretation Comments RADRPT (test code EXAM: CT CERVICAL SPINE = RADRPT) WITHOUT CONTRASTDATE: 11/27/2022 0:49INDICATION: Status post fall, pain after trauma. Following trauma transfer for higher level of care request for outside film interpretation CT cervical spine without contrast performed 11/26/2022 [facility] None.TECHNIQUE: Volumetric CT of the cervical spine is acquired without contrast. Axial, coronal and sagittal images are provided. IV contrast: None.DLP: Refer to CT protocol formUT SECTION: ERFINDINGS: The spine is imaged from the skull base to the level of T2/T3.[employer]: Noncontributory.Bones:There is generalized decreased bone mineral density.There [...] calcifications are present.6. Agree with outside report. [facility] [id number] 06:55:28 Test Item Value Reference Range Interpretation Comments RADRPT (test code EXAM: CT CERVICAL SPINE = RADRPT) WITHOUT CONTRASTDATE: 11/27/2022 0:49INDICATION: Status post fall, pain after trauma. Following trauma transfer for higher level of care request for outside film interpretation CT cervical spine without contrast performed 11/26/2022 [facility] None.TECHNIQUE: Volumetric CT of the cervical spine is acquired without contrast. Axial, coronal and sagittal images are provided. IV contrast: None.DLP: Refer to CT protocol formUT SECTION: ERFINDINGS: The spine is imaged from the skull base to the level of T2/T3.[employer]: Noncontributory.Bones:There is generalized decreased bone mineral density.There [...] calcifications are present.6. Agree with outside report. [facility] CenterKzngvvlATRFFW0827-50-54 06:55:28 Test Item Value Reference Range Interpretation Comments RADRPT (test code EXAM: CT CERVICAL SPINE = RADRPT) WITHOUT CONTRASTDATE: 11/27/2022 0:49INDICATION: Status post fall, pain after trauma. Following trauma transfer for higher level of care request for outside film interpretation CT cervical spine without contrast performed 11/26/2022 [facility] None.TECHNIQUE: Volumetric CT of the cervical spine is acquired without contrast. Axial, coronal and sagittal images are provided. IV contrast: None.DLP: Refer to CT protocol formUT SECTION: ERFINDINGS: The spine is imaged from the skull base to the level of T2/T3.[employer]: Noncontributory.Bones:There is generalized decreased bone mineral density.There [...] calcifications are present.6. Agree with outside report. [facility] CenterDiklwrgBZNELV0721-80-32 06:55:28 Test Item Value Reference Range Interpretation Comments RADRPT (test code EXAM: CT CERVICAL SPINE = RADRPT) WITHOUT CONTRASTDATE: 11/27/2022 0:49INDICATION: Status post fall, pain after trauma. Following trauma transfer for higher level of care request for outside film interpretation CT cervical spine without contrast performed 11/26/2022 [facility]44 [facility] None.TECHNIQUE: Volumetric CT of the cervical spine is acquired without contrast. Axial, coronal and sagittal images are provided. IV contrast: None.DLP: Refer to CT protocol formUT SECTION: ERFINDINGS: The spine is imaged from the skull base to the level of T2/T3.[employer]: Noncontributory.Bones:There is generalized decreased bone mineral density.There [...] present.6. Agree with outside report. [facility] [id number] 06:55:28 Test Item Value Reference Range Interpretation Comments RADRPT (test code EXAM: CT CERVICAL SPINE = RADRPT) WITHOUT CONTRASTDATE: 11/27/2022 0:49INDICATION: Status post fall, pain after trauma. Following trauma transfer for higher level of care request for outside film interpretation CT cervical spine without contrast performed 11/26/2022 [facility] None.TECHNIQUE: Volumetric CT of the cervical spine is acquired without contrast. Axial, coronal and sagittal images are provided. IV contrast: None.DLP: Refer to CT protocol formUT SECTION: ERFINDINGS: The spine is imaged from the skull base to the level of T2/T3.[employer]: Noncontributory.Bones:There is generalized decreased bone mineral density.There [...] present.6. Agree with outside report. [facility] HospitalQnyeamsGYGCIY0296-59-37 06:55:28 Test Item Value Reference Range Interpretation Comments RADRPT (test code EXAM: CT CERVICAL SPINE = RADRPT) WITHOUT CONTRASTDATE: 11/27/2022 0:49INDICATION: Status post fall, pain after trauma. Following trauma transfer for higher level of care request for outside film interpretation CT cervical spine without contrast performed 11/26/2022 at 2044 [facility] None.TECHNIQUE: Volumetric CT of the cervical spine is acquired without contrast. Axial, coronal and sagittal images are provided. IV contrast: None.DLP: Refer to CT protocol formUT SECTION: ERFINDINGS: The spine is imaged from the skull base to the level of T2/T3.[employer]: Noncontributory.Bones:There is generalized decreased bone mineral density.There [...] calcifications are present.6. Agree with outside report. [facility]2023-02-27 06:27:00 Test Item Value Reference Range Interpretation Comments Glucose Lvl (test code = Glucose Lvl) 85 70-99 [facility]IM[facility] - [employer] [id number] 06:27:00 Test Item Value Reference Range Interpretation Comments BUN (test code = BUN) 28 7-22 [facility]2023-02-27 06:27:00 Test Item Value Reference Range Interpretation Comments Creatinine Lvl (test code = Creatinine 2.19 0.50-1.40 Lvl) [facility]2023-02-27 06:27:00 Test Item Value Reference Range Interpretation Comments Sodium Lvl (test code = Sodium Lvl) 143 135-145 [facility] - [employer] [id number] 06:27:00 Test Item Value Reference Range Interpretation Comments Potassium Lvl (test code = Potassium 4.3 3.5-5.1 Lvl) [place] [id number] 06:27:00 Test Item Value Reference Range Interpretation Comments Chloride Lvl (test code = Chloride Lvl) 110 95-109 [place] 454363-02-27 06:27:00 Test Item Value Reference Range Interpretation Comments CO2 (test code = CO2) -32 [place] [id number] 06:27:00 Test Item Value Reference Range Interpretation Comments Calcium Lvl (test code = Calcium Lvl) 8.1 8.5-10.5 [place] 454363-02-27 06:27:00 Test Item Value Reference Range Interpretation Comments AGAP (test code = AGAP) 10.3 10.0-20.0 [place] 454363-02-27 06:27:00 Test Item Value Reference Range Interpretation Comments eGFR (test code = eGFR) 22 [place] 454363-02-27 06:27:00 Test Item Value Reference Range Interpretation Comments Total Protein (test code = Total 6.6 6.4-8.4 Protein) [facility]2023-02-27 06:27:00 Test Item Value Reference Range Interpretation Comments Albumin Lvl (test code = Albumin Lvl) 3.0 3.5-5.0 [facility]2023-02-27 06:27:00 Test Item Value Reference Range Interpretation Comments Globulin (test code = Globulin) 3.6 2.7-4.2 [place] 454363-02-27 06:27:00 Test Item Value Reference Range Interpretation Comments A/G Ratio (test code = A/G Ratio) 0.8 1 0.7-1.6 [place] 454363-02-27 06:27:00 Test Item Value Reference Range Interpretation Comments ALANINE AMINOTRANSFERASE 21 See_Comment [A utomated message] (test code = ALANINE The sys tem which AMINOTRANSFERASE) generated this result transmitted ref erence range: <=65. Th e reference range was not used to int erpret this result as normal/abnormal . [place] 454363-02-27 06:27:00 Test Item Value Reference Range Interpretation Comments AST (test code = AST) 17 See_Comment [Auto mated message] The system which ge nerated this result transmit sheba reference range : <=37. The reference range was not used to interpr et this result as edy l/abnormal. [facility] CenterR[facility] [id number] 06:27:00 Test Item Value Reference Range Interpretation Comments Alk Phos (test code = Alk Phos) 84 39-136 [facility] CenterR[facility] [id number] 06:27:00 Test Item Value Reference Range Interpretation Comments Bili Total (test code = Bili Total) 0.3 0.2-1.3 [facility] CenterR[facility] [id number] 06:27:00 Test Item Value Reference Range Interpretation Comments Bili Direct (test code no gt See_Comment [Aut omated message] The = Bili Direct) system which generated this result tra nsmitted reference range : <=0.3. The reference r christiano was not used to int erpret this result as edy l/abnormal. [facility] [id number] 06:27:00 Test Item Value Reference Range Interpretation Comments Bili Indirect Unable to See_Comment [Automated (test code = Bili Calculate message] T he system Indirect) which generated this result transmitted reference range : <=1.0. The reference range was not used to interpret this result as normal/abnormal . [facility] [id number] 06:27:00 Test Item Value Reference Range Interpretation Comments Lactic Acid Lvl (test code = Lactic 0.5 0.5-2.2 Acid Lvl) [place] 711343-02-27 06:27:00 Test Item Value Reference Range Interpretation Comments Total Protein (test code = Total 6.6 6.4-8.4 Protein) [place] [address]-02-27 06:27:00 Test Item Value Reference Range Interpretation Comments Albumin Lvl (test code = Albumin Lvl) 3.0 3.5-5.0 [place] [address]-02-27 06:27:00 Test Item Value Reference Range Interpretation Comments Globulin (test code = Globulin) 3.6 2.7-4.2 [place] [address]-02-27 06:27:00 Test Item Value Reference Range Interpretation Comments A/G Ratio (test code = A/G Ratio) 0.8 1 0.7-1.6 [facility] RgknjofLAIYUELPQ4735-40-07 06:27:00 Test Item Value Reference Range Interpretation Comments ALANINE AMINOTRANSFERASE 21 See_Comment [A utomated message] (test code = ALANINE The sys tem which AMINOTRANSFERASE) generated this result transmitted ref erence range: <=65. Th e reference range was not used to int erpret this result as normal/abnormal . [facility] CenterKqhvibkTZMNGMRQV1516-42-24 06:27:00 Test Item Value Reference Range Interpretation Comments AST (test code = AST) 17 See_Comment [Auto mated message] The system which ge nerated this result transmit sheba reference range : <=37. The reference range was not used to interpr et this result as edy l/abnormal. [facility] CenterLrbgfynJBNSYVMZG2898-88-48 06:27:00 Test Item Value Reference Range Interpretation Comments Alk Phos (test code = Alk Phos) 84 39-136 [facility] CenterNjuvgktNJJACTSGN1791-96-57 06:27:00 Test Item Value Reference Range Interpretation Comments Bili Total (test code = Bili Total) 0.3 0.2-1.3 [facility] CenterDmsanjiHKAAGESDK7593-78-31 06:27:00 Test Item Value Reference Range Interpretation Comments Bili Direct (test code no gt See_Comment [Aut omated message] The = Bili Direct) system which generated this result tra nsmitted reference range : <=0.3. The reference r christiano was not used to int erpret this result as edy l/abnormal. [facility] CenterPeqsarnUEVZGTCIX0701-91-21 06:27:00 Test Item Value Reference Range Interpretation Comments Bili Indirect Unable to See_Comment [Automated (test code = Bili Calculate message] T he system Indirect) which generated this result transmitted reference range : <=1.0. The reference range was not used to interpret this result as normal/abnormal . [facility] CenterJhkarbxXVMIWDTJE9944-94-38 06:27:00 Test Item Value Reference Range Interpretation Comments pH Justin (test code = pH Justin) 7.29 1 7.28-7.42 [facility] CenterAnrjxstRGHKAGKXK8775-54-30 06:27:00 Test Item Value Reference Range Interpretation Comments pCO2 Justin (test code = pCO2 Justin) 65 38-52 [facility] CenterPncrmjyEYQIMQGGF1518-92-24 06:27:00 Test Item Value Reference Range Interpretation Comments pO2 Justin (test code = pO2 Justin) 37 20-49 [facility]NstfclfUKNAFQWQL9737-62-23 06:27:00 Test Item Value Reference Range Interpretation Comments HCO3 Justin (test code = HCO3 Justin) 31 22-26 [facility]iscoIlwcralBAZAGUTWL0711-13-16 06:27:00 Test Item Value Reference Range Interpretation Comments BE Justin (test code = BE Justin) 3 -2-2 [facility]iscoBuzztwiIQABXZDAH3151-07-27 06:27:00 Test Item Value Reference Range Interpretation Comments O2 Sat Justin (calc) (test code = O2 Sat 63.0 40.0-70.0 Justin (calc)) [facility]iscoHhfbdzrVWQHATOLB6419-85-11 06:27:00 Test Item Value Reference Range Interpretation Comments Temp Justin (test code = Temp Justin) 37.0 [facility]iscoLzglmvvXFPPGALIM9047-59-16 06:27:00 Test Item Value Reference Range Interpretation Comments Lactic Acid Lvl (test code = Lactic 0.5 0.5-2.2 Acid Lvl) [facility]iscoCbykiewVMMXMHLZP2121-01-16 06:27:00 Test Item Value Reference Range Interpretation Comments TSH (test code = TSH) 0.403 0.360-3.740 [facility] HospitalIgivrgzIZOQFOZLFZ2361-49-20 06:27:00 Test Item Value Reference Range Interpretation Comments WBC X 10x3 (test code = WBC X 10x3) 5.9 3.7-10.4 [facility] HospitalPifciloEJCDCYJWDJ7353-28-10 06:27:00 Test Item Value Reference Range Interpretation Comments RBC X 10x6 (test code = RBC X 10x6) 3.67 4.20-5.40 [place] 633383-02-27 06:27:00 Test Item Value Reference Range Interpretation Comments Hgb (test code = Hgb) 10.7 12.0-16.0 [place] 633383-02-27 06:27:00 Test Item Value Reference Range Interpretation Comments Hct (test code = Hct) 33.5 36.0-48.0 [place] 633383-02-27 06:27:00 Test Item Value Reference Range Interpretation Comments MCV (test code = MCV) 91.4 80.0-98.0 [place] 633383-02-27 06:27:00 Test Item Value Reference Range Interpretation Comments MCH (test code = MCH) 29.3 pg 27.0-31.0 [place] 633383-02-27 06:27:00 Test Item Value Reference Range Interpretation Comments MCHC (test code = MCHC) 32.0 32.0-36.0 [place] 633383-02-27 06:27:00 Test Item Value Reference Range Interpretation Comments RDW (test code = RDW) 13.7 11.5-14.5 [place] 633383-02-27 06:27:00 Test Item Value Reference Range Interpretation Comments Platelet (test code = Platelet) 139 133-450 [place] 633383-02-27 06:27:00 Test Item Value Reference Range Interpretation Comments MPV (test code = MPV) 7.5 7.4-10.4 [place] 633383-02-27 06:27:00 Test Item Value Reference Range Interpretation Comments ACT (TEG) Rapid (test code = ACT (TEG) 121 s 86-118 Rapid) [place] 633383-02-27 06:27:00 Test Item Value Reference Range Interpretation Comments Split Point Rapid (test code = Split 0.6 min Point Rapid) [place] 633383-02-27 06:27:00 Test Item Value Reference Range Interpretation Comments R-time Rapid (test code = R-time 0.8 min 0.4-0.7 Rapid) [place] 633383-02-27 06:27:00 Test Item Value Reference Range Interpretation Comments K-time Rapid (test code = K-time 0.8 min 0.6-2.3 Rapid) [place] 633383-02-27 06:27:00 Test Item Value Reference Range Interpretation Comments Angle Rapid (test code = Angle 79 degrees 64-80 Rapid) [place] 633383-02-27 06:27:00 Test Item Value Reference Range Interpretation Comments Max Amplitude Rapid (test code = Max 71 mm 52-71 Amplitude Rapid) [place] 633383-02-27 06:27:00 Test Item Value Reference Range Interpretation Comments G-value Rapid (test code = G-value 12.1 5.0-11.6 Rapid) [place] 633383-02-27 06:27:00 Test Item Value Reference Range Interpretation Comments Estimated % Lysis Rapid 0.0 See_Comment [Au tomated message] The (test code = Estimated syste m which generated % Lysis Rapid) this result t ransmitted reference range : <=7.5. The reference r christiano was not used to int erpret this result as normal/abnormal . [facility] HospitalIbtohblEKYQTIODHC2884-84-47 06:27:00 Test Item Value Reference Range Interpretation Comments RBC Morph (test code = Normal (11/27/22 12:27 RBC Morph) AM) [facility] HospitalSsziwpqUIGFDLSNNS2488-69-21 06:27:00 Test Item Value Reference Range Interpretation Comments Plt Morph (test code = Normal (11/27/22 12:27 Plt Morph) AM) [facility] HospitalYojtetdVFJLDBETCL6744-28-57 06:27:00 Test Item Value Reference Range Interpretation Comments Segs (test code = Segs) 60.1 45.0-75.0 [facility] HospitalGbjplaaKDMBWQGZRC7169-53-01 06:27:00 Test Item Value Reference Range Interpretation Comments Lymphocytes (test code = Lymphocytes) 23.9 20.0-40.0 [facility] HospitalZatqcfbFRYJLZCBIQ2914-24-88 06:27:00 Test Item Value Reference Range Interpretation Comments Monocytes (test code = Monocytes) 9.6 2.0-12.0 [facility] HospitalRjocjukMRDGMICNWK4593-86-98:27:00 Test Item Value Reference Range Interpretation Comments Eosinophils (test code = 5.2 See_Comment [A utomated message] The Eosinophils) system which ge nerated this result tra nsmitted reference range : <=4.0. The reference r christiano was not used to int erpret this result as normal/abnormal . [facility] HospitalCscitdqPZDDVHBWNM8614-06-91 06:27:00 Test Item Value Reference Range Interpretation Comments Basophils (test code = 1.2 See_Comment [Aut omated message] The Basophils) system which ge nerated this result tra nsmitted reference range : <=1.0. The reference r christiano was not used to int erpret this result as normal/abnormal . [facility] HospitalSdifygyMCYWOHZECB8240-04-85:27:00 Test Item Value Reference Range Interpretation Comments Neutrophils # (test code = Neutrophils 3.5 1.5-8.1 #) [facility] HospitalEctnxlbGPLAOYAWTK3421-72-17:27:00 Test Item Value Reference Range Interpretation Comments Lymphocytes # (test code = Lymphocytes 1.4 1.0-5.5 #) [facility] HospitalFibbltfYKBGTIDGMO8202-35-21 06:27:00 Test Item Value Reference Range Interpretation Comments Monocytes # (test code 0.6 See_Comment [Aut omated message] The = Monocytes #) system which generated this result tra nsmitted reference range : <=0.8. The reference r christiano was not used to int erpret this result as normal/abnormal . [facility] HospitalKugerowTIPYSACTJB8957-39-59 06:27:00 Test Item Value Reference Range Interpretation Comments Eosinophils # (test code 0.3 See_Comment [A utomated message] The = Eosinophils #) system whic h generated this result tra nsmitted reference range : <=0.5. The reference r christiano was not used to int erpret this result as normal/abnormal . [place] 633383-02-27 06:27:00 Test Item Value Reference Range Interpretation Comments Basophils # (test code 0.1 See_Comment [Aut omated message] The = Basophils #) system which generated this result tra nsmitted reference range : <=0.2. The reference r christiano was not used to int erpret this result as normal/abnormal . [facility] HospitalLuavujxFLDNJZFCWQ1518-67-83 06:27:00 Test Item Value Reference Range Interpretation Comments ACT (TEG) Rapid (test code = ACT (TEG) 121 s 86-118 Rapid) [place] 633383-02-27 06:27:00 Test Item Value Reference Range Interpretation Comments Split Point Rapid (test code = Split 0.6 min Point Rapid) [place] [address]-02-27 06:27:00 Test Item Value Reference Range Interpretation Comments R-time Rapid (test code = R-time 0.8 min 0.4-0.7 Rapid) [facility] HospitalNkdywpuQDBOTLXASK9828-25-62 06:27:00 Test Item Value Reference Range Interpretation Comments K-time Rapid (test code = K-time 0.8 min 0.6-2.3 Rapid) [place] 633383-02-27 06:27:00 Test Item Value Reference Range Interpretation Comments Angle Rapid (test code = Angle 79 degrees 64-80 Rapid) [place] 633383-02-27 06:27:00 Test Item Value Reference Range Interpretation Comments Max Amplitude Rapid (test code = Max 71 mm 52-71 Amplitude Rapid) [place] [address]-02-27 06:27:00 Test Item Value Reference Range Interpretation Comments G-value Rapid (test code = G-value 12.1 5.0-11.6 Rapid) [place] [address]-02-27 06:27:00 Test Item Value Reference Range Interpretation Comments Estimated % Lysis Rapid 0.0 See_Comment [Au tomated message] The (test code = Estimated syste m which generated % Lysis Rapid) this result t ransmitted reference range : <=7.5. The reference r christiano was not used to int erpret this result as normal/abnormal . [place] [address]-02-27 06:27:00 Test Item Value Reference Range Interpretation Comments RBC Morph (test code = Normal (11/27/22 12:27 RBC Morph) AM) [place] [address]-02-27 06:27:00 Test Item Value Reference Range Interpretation Comments Plt Morph (test code = Normal (11/27/22 12:27 Plt Morph) AM) [place] [address]-02-27 06:27:00 Test Item Value Reference Range Interpretation Comments Basophils # (test code 0.1 See_Comment [Aut omated message] The = Basophils #) system which generated this result tra nsmitted reference range : <=0.2. The reference r christiano was not used to int erpret this result as normal/abnormal . [place] 454363-02-27 06:27:00 Test Item Value Reference Range Interpretation Comments Glucose Lvl (test code = Glucose Lvl) 85 70-99 [facility] [employer] TNIDL4531-10-22 06:27:00 Test Item Value Reference Range Interpretation Comments BUN (test code = BUN) 28 7-22 [place] [address]-02-27 06:27:00 Test Item Value Reference Range Interpretation Comments Creatinine Lvl (test code = Creatinine 2.19 0.50-1.40 Lvl) [place] 454363-02-27 06:27:00 Test Item Value Reference Range Interpretation Comments Sodium Lvl (test code = Sodium Lvl) 143 135-145 [facility] [employer] [id number] 06:27:00 Test Item Value Reference Range Interpretation Comments Potassium Lvl (test code = Potassium 4.3 3.5-5.1 Lvl) [place] 454363-02-27 06:27:00 Test Item Value Reference Range Interpretation Comments Chloride Lvl (test code = Chloride Lvl) 110 95-109 [place] 454363-02-27 06:27:00 Test Item Value Reference Range Interpretation Comments CO2 (test code = CO2) 27 24-32 [place] 454363-02-27 06:27:00 Test Item Value Reference Range Interpretation Comments Calcium Lvl (test code = Calcium Lvl) 8.1 8.5-10.5 [place] 454363-02-27 06:27:00 Test Item Value Reference Range Interpretation Comments AGAP (test code = AGAP) 10.3 10.0-20.0 [place] 454363-02-27 06:27:00 Test Item Value Reference Range Interpretation Comments eGFR (test code = eGFR) 22 [place] 454363-02-27 06:27:00 Test Item Value Reference Range Interpretation Comments Total Protein (test code = Total 6.6 6.4-8.4 Protein) [place] 454363-02-27 06:27:00 Test Item Value Reference Range Interpretation Comments Albumin Lvl (test code = Albumin Lvl) 3.0 3.5-5.0 [place] 454363-02-27 06:27:00 Test Item Value Reference Range Interpretation Comments Globulin (test code = Globulin) 3.6 2.7-4.2 [place] 454363-02-27 06:27:00 Test Item Value Reference Range Interpretation Comments A/G Ratio (test code = A/G Ratio) 0.8 1 0.7-1.6 [place] 454363-02-27 06:27:00 Test Item Value Reference Range Interpretation Comments ALANINE AMINOTRANSFERASE 21 See_Comment [A utomated message] (test code = ALANINE The sys tem which AMINOTRANSFERASE) generated this result transmitted ref erence range: <=65. Th e reference range was not used to int erpret this result as normal/abnormal . [place] 454363-02-27 06:27:00 Test Item Value Reference Range Interpretation Comments AST (test code = AST) 17 See_Comment [Auto mated message] The system which ge nerated this result transmit sheba reference range : <=37. The reference range was not used to interpr et this result as edy l/abnormal. [facility] DFGYU9343-76-99 06:27:00 Test Item Value Reference Range Interpretation Comments Alk Phos (test code = Alk Phos) 84 39-136 [facility] CenterSilver Fox EventsTRACY V[place] [address]PHWPU3754-24-22 06:27:00 Test Item Value Reference Range Interpretation Comments Bili Total (test code = Bili Total) 0.3 0.2-1.3 [place] [address]-02-27 06:27:00 Test Item Value Reference Range Interpretation Comments Bili Direct (test code no gt See_Comment [Aut omated message] The = Bili Direct) system which generated this result tra nsmitted reference range : <=0.3. The reference r christiano was not used to int erpret this result as edy l/abnormal. [facility] CenterRysto OFNYS2109-31-33 06:27:00 Test Item Value Reference Range Interpretation Comments Bili Indirect Unable to See_Comment [Automated (test code = Bili Calculate message] T he system Indirect) which generated this result transmitted reference range : <=1.0. The reference range was not used to interpret this result as normal/abnormal . [facility] CenterR[facility] OSUBP1954-19-78 06:27:00 Test Item Value Reference Range Interpretation Comments Lactic Acid Lvl (test code = Lactic 0.5 0.5-2.2 Acid Lvl) [place] 711343-02-27 06:27:00 Test Item Value Reference Range Interpretation Comments Total Protein (test code = Total 6.6 6.4-8.4 Protein) [place] [address]-02-27 06:27:00 Test Item Value Reference Range Interpretation Comments Albumin Lvl (test code = Albumin Lvl) 3.0 3.5-5.0 [place] [address]-02-27 06:27:00 Test Item Value Reference Range Interpretation Comments Globulin (test code = Globulin) 3.6 2.7-4.2 [place] [address]-02-27 06:27:00 Test Item Value Reference Range Interpretation Comments A/G Ratio (test code = A/G Ratio) 0.8 1 0.7-1.6 [place] 711343-02-27 06:27:00 Test Item Value Reference Range Interpretation Comments ALANINE AMINOTRANSFERASE 21 See_Comment [A utomated message] (test code = ALANINE The sys tem which AMINOTRANSFERASE) generated this result transmitted ref erence range: <=65. Th e reference range was not used to int erpret this result as normal/abnormal . [facility] CenterXbfyikhSYLUKZOLS4601-02-81 06:27:00 Test Item Value Reference Range Interpretation Comments AST (test code = AST) 17 See_Comment [Auto mated message] The system which ge nerated this result transmit sheba reference range : <=37. The reference range was not used to interpr et this result as edy l/abnormal. [facility] CenterSyorktzUREPJTZUJ0033-41-90 06:27:00 Test Item Value Reference Range Interpretation Comments Alk Phos (test code = Alk Phos) 84 39-136 [facility] CenterYpbkfklFUZJKVMZO6001-52-26 06:27:00 Test Item Value Reference Range Interpretation Comments Bili Total (test code = Bili Total) 0.3 0.2-1.3 [facility] HospitalTrlwymeQUDGACXAC3055-53-65 06:27:00 Test Item Value Reference Range Interpretation Comments Bili Direct (test code no gt See_Comment [Aut omated message] The = Bili Direct) system which generated this result tra nsmitted reference range : <=0.3. The reference r christiano was not used to int erpret this result as edy l/abnormal. [facility] CenterPglwpmyDUAOTHWJE1239-53-26 06:27:00 Test Item Value Reference Range Interpretation Comments Bili Indirect Unable to See_Comment [Automated (test code = Bili Calculate message] T he system Indirect) which generated this result transmitted reference range : <=1.0. The reference range was not used to interpret this result as normal/abnormal . [facility] CenterPhxdrnmYOEVHXVXU8166-00-42 06:27:00 Test Item Value Reference Range Interpretation Comments pH Justin (test code = pH Justin) 7.29 1 7.28-7.42 [facility] CenterJzlmjciTEZHHDISY4713-43-92 06:27:00 Test Item Value Reference Range Interpretation Comments pCO2 Justin (test code = pCO2 Justin) 65 38-52 [facility] CenterSekpzdqCSQIAWSJL4351-84-68 06:27:00 Test Item Value Reference Range Interpretation Comments pO2 Justin (test code = pO2 Justin) 37 20-49 [facility]WyxosweFIIHBTNBZ7481-47-47 06:27:00 Test Item Value Reference Range Interpretation Comments HCO3 Justin (test code = HCO3 Justin) 31 22-26 [facility]iscoDujbixiEECSPGAFF5956-76-76 06:27:00 Test Item Value Reference Range Interpretation Comments BE Justin (test code = BE Justin) 3 -2-2 [facility]iscoFymjrxhCICUONVYA5827-82-29 06:27:00 Test Item Value Reference Range Interpretation Comments O2 Sat Justin (calc) (test code = O2 Sat 63.0 40.0-70.0 Justin (calc)) [facility]iscoEdevcylKWDCROIIZ0359-03-39 06:27:00 Test Item Value Reference Range Interpretation Comments Temp Justin (test code = Temp Justin) 37.0 [facility]iscoDzvluaeTBLNARPTN1290-27-47 06:27:00 Test Item Value Reference Range Interpretation Comments Lactic Acid Lvl (test code = Lactic 0.5 0.5-2.2 Acid Lvl) [facility]iscoJdzeyrmZARUYXXZS5966-44-46 06:27:00 Test Item Value Reference Range Interpretation Comments TSH (test code = TSH) 0.403 0.360-3.740 [facility] HospitalJyqvcbsURFHBIDDZX4785-09-40 06:27:00 Test Item Value Reference Range Interpretation Comments WBC X 10x3 (test code = WBC X 10x3) 5.9 3.7-10.4 [facility] HospitalDuzdejjBQXRHTMVNU0163-98-14 06:27:00 Test Item Value Reference Range Interpretation Comments RBC X 10x6 (test code = RBC X 10x6) 3.67 4.20-5.40 [facility] HospitalAyzvmuhJMOCFTMYEX8754-15-99 06:27:00 Test Item Value Reference Range Interpretation Comments Hgb (test code = Hgb) 10.7 12.0-16.0 [place] 633383-02-27 06:27:00 Test Item Value Reference Range Interpretation Comments Hct (test code = Hct) 33.5 36.0-48.0 [facility] HospitalTqzsbrrWDPALBTYEY2349-79-98 06:27:00 Test Item Value Reference Range Interpretation Comments MCV (test code = MCV) 91.4 80.0-98.0 [facility] HospitalQxbjqvpQKIJICVAYM6869-82-66 06:27:00 Test Item Value Reference Range Interpretation Comments MCH (test code = MCH) 29.3 pg 27.0-31.0 [facility] HospitalUxmyrirEHDGJKSSXH1248-64-85 06:27:00 Test Item Value Reference Range Interpretation Comments MCHC (test code = MCHC) 32.0 32.0-36.0 [facility] HospitalNwnqvgsXJOGHNYBST6480-40-62 06:27:00 Test Item Value Reference Range Interpretation Comments RDW (test code = RDW) 13.7 11.5-14.5 [facility] HospitalOgrrfdaIHBDRHUGPD6343-95-89 06:27:00 Test Item Value Reference Range Interpretation Comments Platelet (test code = Platelet) 139 133-450 [place] 633383-02-27 06:27:00 Test Item Value Reference Range Interpretation Comments MPV (test code = MPV) 7.5 7.4-10.4 [place] 633383-02-27 06:27:00 Test Item Value Reference Range Interpretation Comments ACT (TEG) Rapid (test code = ACT (TEG) 121 s 86-118 Rapid) [place] 633383-02-27 06:27:00 Test Item Value Reference Range Interpretation Comments Split Point Rapid (test code = Split 0.6 min Point Rapid) [facility] HospitalZmgkhtzEQQHIGEIXK2226-54-44 06:27:00 Test Item Value Reference Range Interpretation Comments R-time Rapid (test code = R-time 0.8 min 0.4-0.7 Rapid) [place] 633383-02-27 06:27:00 Test Item Value Reference Range Interpretation Comments K-time Rapid (test code = K-time 0.8 min 0.6-2.3 Rapid) [place] 633383-02-27 06:27:00 Test Item Value Reference Range Interpretation Comments Angle Rapid (test code = Angle 79 degrees 64-80 Rapid) [facility] HospitalQrcqlfrKVRYGNGYNO5801-81-39 06:27:00 Test Item Value Reference Range Interpretation Comments Max Amplitude Rapid (test code = Max 71 mm 52-71 Amplitude Rapid) [place] 633383-02-27 06:27:00 Test Item Value Reference Range Interpretation Comments G-value Rapid (test code = G-value 12.1 5.0-11.6 Rapid) [place] 633383-02-27 06:27:00 Test Item Value Reference Range Interpretation Comments Estimated % Lysis Rapid 0.0 See_Comment [Au tomated message] The (test code = Estimated syste m which generated % Lysis Rapid) this result t ransmitted reference range : <=7.5. The reference r christiano was not used to int erpret this result as normal/abnormal . [facility] HospitalNyfmgetBETHAHBKXR4227-49-54 06:27:00 Test Item Value Reference Range Interpretation Comments RBC Morph (test code = Normal (11/27/22 12:27 RBC Morph) AM) [facility] HospitalIrnckjvSTGQVCLBAC0678-37-12 06:27:00 Test Item Value Reference Range Interpretation Comments Plt Morph (test code = Normal (11/27/22 12:27 Plt Morph) AM) [facility] HospitalAlhjwfwTGWYPCNGUF1294-34-34 06:27:00 Test Item Value Reference Range Interpretation Comments Segs (test code = Segs) 60.1 45.0-75.0 [place] 633383-02-27 06:27:00 Test Item Value Reference Range Interpretation Comments Lymphocytes (test code = Lymphocytes) 23.9 20.0-40.0 [facility] HospitalDascfxpEILGRNYMAD2166-92-80 06:27:00 Test Item Value Reference Range Interpretation Comments Monocytes (test code = Monocytes) 9.6 2.0-12.0 [facility] HospitalYcrhwzgSTGODYYVXL9619-21-26 06:27:00 Test Item Value Reference Range Interpretation Comments Eosinophils (test code = 5.2 See_Comment [A utomated message] The Eosinophils) system which ge nerated this result tra nsmitted reference range : <=4.0. The reference r christiano was not used to int erpret this result as normal/abnormal . [facility] HospitalPfobsmuTFXJYHDKIK3968-58-61:27:00 Test Item Value Reference Range Interpretation Comments Basophils (test code = 1.2 See_Comment [Aut omated message] The Basophils) system which ge nerated this result tra nsmitted reference range : <=1.0. The reference r christiano was not used to int erpret this result as normal/abnormal . [facility] HospitalDipnahcGKHAIGWKZQ4133-68-75 06:27:00 Test Item Value Reference Range Interpretation Comments Neutrophils # (test code = Neutrophils 3.5 1.5-8.1 #) [facility] HospitalYmnolijDDARMNQJWB1760-62-54 06:27:00 Test Item Value Reference Range Interpretation Comments Lymphocytes # (test code = Lymphocytes 1.4 1.0-5.5 #) [facility] HospitalRzjhzioOSKXWLEXSM3050-14-90 06:27:00 Test Item Value Reference Range Interpretation Comments Monocytes # (test code 0.6 See_Comment [Aut omated message] The = Monocytes #) system which generated this result tra nsmitted reference range : <=0.8. The reference r christiano was not used to int erpret this result as normal/abnormal . [place]383-02-27 06:27:00 Test Item Value Reference Range Interpretation Comments Eosinophils # (test code 0.3 See_Comment [A utomated message] The = Eosinophils #) system whic h generated this result tra nsmitted reference range : <=0.5. The reference r christiano was not used to int erpret this result as normal/abnormal . [place] [address]-02-27 06:27:00 Test Item Value Reference Range Interpretation Comments Basophils # (test code 0.1 See_Comment [Aut omated message] The = Basophils #) system which generated this result tra nsmitted reference range : <=0.2. The reference r christiano was not used to int erpret this result as normal/abnormal . [place] 633383-02-27 06:27:00 Test Item Value Reference Range Interpretation Comments ACT (TEG) Rapid (test code = ACT (TEG) 121 s 86-118 Rapid) [place] [address]-02-27 06:27:00 Test Item Value Reference Range Interpretation Comments Split Point Rapid (test code = Split 0.6 min Point Rapid) [place] [address]-02-27 06:27:00 Test Item Value Reference Range Interpretation Comments R-time Rapid (test code = R-time 0.8 min 0.4-0.7 Rapid) [place] [address]-02-27 06:27:00 Test Item Value Reference Range Interpretation Comments K-time Rapid (test code = K-time 0.8 min 0.6-2.3 Rapid) [place] [address]-02-27 06:27:00 Test Item Value Reference Range Interpretation Comments Angle Rapid (test code = Angle 79 degrees 64-80 Rapid) [place] [address]-02-27 06:27:00 Test Item Value Reference Range Interpretation Comments Max Amplitude Rapid (test code = Max 71 mm 52-71 Amplitude Rapid) [place] [address]-02-27 06:27:00 Test Item Value Reference Range Interpretation Comments G-value Rapid (test code = G-value 12.1 5.0-11.6 Rapid) [place] [address]-02-27 06:27:00 Test Item Value Reference Range Interpretation Comments Estimated % Lysis Rapid 0.0 See_Comment [Au tomated message] The (test code = Estimated syste m which generated % Lysis Rapid) this result t ransmitted reference range : <=7.5. The reference r christiano was not used to int erpret this result as normal/abnormal . [place] [address]-02-27 06:27:00 Test Item Value Reference Range Interpretation Comments RBC Morph (test code = Normal (11/27/22 12:27 RBC Morph) AM) [place] [address]-02-27 06:27:00 Test Item Value Reference Range Interpretation Comments Plt Morph (test code = Normal (11/27/22 12:27 Plt Morph) AM) [place] [address]-02-27 06:27:00 Test Item Value Reference Range Interpretation Comments Basophils # (test code 0.1 See_Comment [Aut omated message] The = Basophils #) system which generated this result tra nsmitted reference range : <=0.2. The reference r christiano was not used to int erpret this result as normal/abnormal . [place] 454363-02-27 06:27:00 Test Item Value Reference Range Interpretation Comments Glucose Lvl (test code = Glucose Lvl) 85 70-99 [facility] [employer] [id number] 06:27:00 Test Item Value Reference Range Interpretation Comments BUN (test code = BUN) 28 7-22 [place] [address]-02-27 06:27:00 Test Item Value Reference Range Interpretation Comments Creatinine Lvl (test code = Creatinine 2.19 0.50-1.40 Lvl) [place] 454363-02-27 06:27:00 Test Item Value Reference Range Interpretation Comments Sodium Lvl (test code = Sodium Lvl) 143 135-145 [facility] [employer] [id number] 06:27:00 Test Item Value Reference Range Interpretation Comments Potassium Lvl (test code = Potassium 4.3 3.5-5.1 Lvl) [place] 454363-02-27 06:27:00 Test Item Value Reference Range Interpretation Comments Chloride Lvl (test code = Chloride Lvl) 110 95-109 [facility]2023-02-27 06:27:00 Test Item Value Reference Range Interpretation Comments CO2 (test code = CO2) 27 24-32 [place] 454363-02-27 06:27:00 Test Item Value Reference Range Interpretation Comments Calcium Lvl (test code = Calcium Lvl) 8.1 8.5-10.5 [place] 454363-02-27 06:27:00 Test Item Value Reference Range Interpretation Comments AGAP (test code = AGAP) 10.3 10.0-20.0 [place] 454363-02-27 06:27:00 Test Item Value Reference Range Interpretation Comments eGFR (test code = eGFR) 22 [place] 454363-02-27 06:27:00 Test Item Value Reference Range Interpretation Comments Total Protein (test code = Total 6.6 6.4-8.4 Protein) [place] 454363-02-27 06:27:00 Test Item Value Reference Range Interpretation Comments Albumin Lvl (test code = Albumin Lvl) 3.0 3.5-5.0 [place] 454363-02-27 06:27:00 Test Item Value Reference Range Interpretation Comments Globulin (test code = Globulin) 3.6 2.7-4.2 [place] 454363-02-27 06:27:00 Test Item Value Reference Range Interpretation Comments A/G Ratio (test code = A/G Ratio) 0.8 1 0.7-1.6 [place] 454363-02-27 06:27:00 Test Item Value Reference Range Interpretation Comments ALANINE AMINOTRANSFERASE 21 See_Comment [A utomated message] (test code = ALANINE The sys tem which AMINOTRANSFERASE) generated this result transmitted ref erence range: <=65. Th e reference range was not used to int erpret this result as normal/abnormal . [facility]2023-02-27 06:27:00 Test Item Value Reference Range Interpretation Comments AST (test code = AST) 17 See_Comment [Auto mated message] The system which ge nerated this result transmit sheba reference range : <=37. The reference range was not used to interpr et this result as edy l/abnormal. [place] 454363-02-27 06:27:00 Test Item Value Reference Range Interpretation Comments Alk Phos (test code = Alk Phos) 84 39-136 [place] 454363-02-27 06:27:00 Test Item Value Reference Range Interpretation Comments Bili Total (test code = Bili Total) 0.3 0.2-1.3 [place] 454363-02-27 06:27:00 Test Item Value Reference Range Interpretation Comments Bili Direct (test code no gt See_Comment [Aut omated message] The = Bili Direct) system which generated this result tra nsmitted reference range : <=0.3. The reference r christiano was not used to int erpret this result as edy l/abnormal. [place] 454363-02-27 06:27:00 Test Item Value Reference Range Interpretation Comments Bili Indirect Unable to See_Comment [Automated (test code = Bili Calculate message] T he system Indirect) which generated this result transmitted reference range : <=1.0. The reference range was not used to interpret this result as normal/abnormal . [facility]2023-02-27 06:27:00 Test Item Value Reference Range Interpretation Comments Lactic Acid Lvl (test code = Lactic 0.5 0.5-2.2 Acid Lvl) [place] 711343-02-27 06:27:00 Test Item Value Reference Range Interpretation Comments Total Protein (test code = Total 6.6 6.4-8.4 Protein) [place] 711343-02-27 06:27:00 Test Item Value Reference Range Interpretation Comments Albumin Lvl (test code = Albumin Lvl) 3.0 3.5-5.0 [place] [address]-02-27 06:27:00 Test Item Value Reference Range Interpretation Comments Globulin (test code = Globulin) 3.6 2.7-4.2 [place] [address]-02-27 06:27:00 Test Item Value Reference Range Interpretation Comments A/G Ratio (test code = A/G Ratio) 0.8 1 0.7-1.6 [place] [address]-02-27 06:27:00 Test Item Value Reference Range Interpretation Comments ALANINE AMINOTRANSFERASE 21 See_Comment [A utomated message] (test code = ALANINE The sys tem which AMINOTRANSFERASE) generated this result transmitted ref erence range: <=65. Th e reference range was not used to int erpret this result as normal/abnormal . [facility]NpdjxuxWPCNJCKHZ5796-03-29 06:27:00 Test Item Value Reference Range Interpretation Comments AST (test code = AST) 17 See_Comment [Auto mated message] The system which ge nerated this result transmit sheba reference range : <=37. The reference range was not used to interpr et this result as edy l/abnormal. [facility] CenterUdpzpnmHAWSLIXXF3914-40-98 06:27:00 Test Item Value Reference Range Interpretation Comments Alk Phos (test code = Alk Phos) 84 39-136 [facility] CenterEsekgtsKNXQUBTFQ5071-18-18 06:27:00 Test Item Value Reference Range Interpretation Comments Bili Total (test code = Bili Total) 0.3 0.2-1.3 [facility] CenterYlkobsfPCOBEPLUB2712-07-02 06:27:00 Test Item Value Reference Range Interpretation Comments Bili Direct (test code no gt See_Comment [Aut omated message] The = Bili Direct) system which generated this result tra nsmitted reference range : <=0.3. The reference r christiano was not used to int erpret this result as edy l/abnormal. [facility] CenterEieljntHUFBALUMN5377-45-83 06:27:00 Test Item Value Reference Range Interpretation Comments Bili Indirect Unable to See_Comment [Automated (test code = Bili Calculate message] T he system Indirect) which generated this result transmitted reference range : <=1.0. The reference range was not used to interpret this result as normal/abnormal . [facility] CenterKbkqckqTZGDRXTZR5317-35-10 06:27:00 Test Item Value Reference Range Interpretation Comments pH Justin (test code = pH Justin) 7.29 1 7.28-7.42 [facility] CenterKpyhpxfXGMWAMYAF8235-80-46 06:27:00 Test Item Value Reference Range Interpretation Comments pCO2 Justin (test code = pCO2 Justin) 65 38-52 [facility] CenterOsjhedsXXNGANGFI9438-52-89 06:27:00 Test Item Value Reference Range Interpretation Comments pO2 Justin (test code = pO2 Justin) 37 20-49 [facility]GGQLNMTM1408[facility]51 06:27:00 Test Item Value Reference Range Interpretation Comments HCO3 Justin (test code = HCO3 Justin) 31 22-26 [facility]NfwmfckYOJSPHKHM9284-88-91 06:27:00 Test Item Value Reference Range Interpretation Comments BE Justin (test code = BE Justin) 3 -2-2 [facility]NdigfjgBSLPRUYBF2859-69-39 06:27:00 Test Item Value Reference Range Interpretation Comments O2 Sat Justin (calc) (test code = O2 Sat 63.0 40.0-70.0 Justin (calc)) [facility]iscoZolbjkfMGNAVUKQJ8831-47-02 06:27:00 Test Item Value Reference Range Interpretation Comments Temp Justin (test code = Temp Justin) 37.0 [facility]iscoWdtrlnhUZZMKBILD2238-25-09 06:27:00 Test Item Value Reference Range Interpretation Comments Lactic Acid Lvl (test code = Lactic 0.5 0.5-2.2 Acid Lvl) [facility]NgnlxfaXWLPWJMFD3679-11-22 06:27:00 Test Item Value Reference Range Interpretation Comments TSH (test code = TSH) 0.403 0.360-3.740 [facility] HospitalQabzwgtMWPMGCFINA6635-20-31 06:27:00 Test Item Value Reference Range Interpretation Comments WBC X 10x3 (test code = WBC X 10x3) 5.9 3.7-10.4 [facility] HospitalZnirchgBIGUCKWXPZ0343-34-61 06:27:00 Test Item Value Reference Range Interpretation Comments RBC X 10x6 (test code = RBC X 10x6) 3.67 4.20-5.40 [facility] HospitalYfeomutMTACNMIEDG6821-83-93 06:27:00 Test Item Value Reference Range Interpretation Comments Hgb (test code = Hgb) 10.7 12.0-16.0 [place] 633383-02-27 06:27:00 Test Item Value Reference Range Interpretation Comments Hct (test code = Hct) 33.5 36.0-48.0 [facility] HospitalNiwbhnvPVYOYHPJKI4353-73-18 06:27:00 Test Item Value Reference Range Interpretation Comments MCV (test code = MCV) 91.4 80.0-98.0 [facility] HospitalSqninwiGXNIMDVPZY4308-20-94 06:27:00 Test Item Value Reference Range Interpretation Comments MCH (test code = MCH) 29.3 pg 27.0-31.0 [place] [address]-02-27 06:27:00 Test Item Value Reference Range Interpretation Comments MCHC (test code = MCHC) 32.0 32.0-36.0 [place] 633383-02-27 06:27:00 Test Item Value Reference Range Interpretation Comments RDW (test code = RDW) 13.7 11.5-14.5 [place] 633383-02-27 06:27:00 Test Item Value Reference Range Interpretation Comments Platelet (test code = Platelet) 139 133-450 [place] 633383-02-27 06:27:00 Test Item Value Reference Range Interpretation Comments MPV (test code = MPV) 7.5 7.4-10.4 [place] [address]-02-27 06:27:00 Test Item Value Reference Range Interpretation Comments ACT (TEG) Rapid (test code = ACT (TEG) 121 s 86-118 Rapid) [place] 633383-02-27 06:27:00 Test Item Value Reference Range Interpretation Comments Split Point Rapid (test code = Split 0.6 min Point Rapid) [place] [address]-02-27 06:27:00 Test Item Value Reference Range Interpretation Comments R-time Rapid (test code = R-time 0.8 min 0.4-0.7 Rapid) [place] [address]-02-27 06:27:00 Test Item Value Reference Range Interpretation Comments K-time Rapid (test code = K-time 0.8 min 0.6-2.3 Rapid) [place] 633383-02-27 06:27:00 Test Item Value Reference Range Interpretation Comments Angle Rapid (test code = Angle 79 degrees 64-80 Rapid) [place] [address]-02-27 06:27:00 Test Item Value Reference Range Interpretation Comments Max Amplitude Rapid (test code = Max 71 mm 52-71 Amplitude Rapid) [place] [address]-02-27 06:27:00 Test Item Value Reference Range Interpretation Comments G-value Rapid (test code = G-value 12.1 5.0-11.6 Rapid) [place] 633383-02-27 06:27:00 Test Item Value Reference Range Interpretation Comments Estimated % Lysis Rapid 0.0 See_Comment [Au tomated message] The (test code = Estimated syste m which generated % Lysis Rapid) this result t ransmitted reference range : <=7.5. The reference r christiano was not used to int erpret this result as normal/abnormal . [facility] HospitalLwkkukpHVEVBFOCYJ4703-84-26 06:27:00 Test Item Value Reference Range Interpretation Comments RBC Morph (test code = Normal (11/27/22 12:27 RBC Morph) AM) [facility] HospitalCyfgcfcXZCFTFPNCD0803-03-28 06:27:00 Test Item Value Reference Range Interpretation Comments Plt Morph (test code = Normal (11/27/22 12:27 Plt Morph) AM) [facility] HospitalFwpyglsWREWIJGRXI5151-73-22 06:27:00 Test Item Value Reference Range Interpretation Comments Segs (test code = Segs) 60.1 45.0-75.0 [facility] HospitalSyorfajBYRTALARPZ4647-80-76:27:00 Test Item Value Reference Range Interpretation Comments Lymphocytes (test code = Lymphocytes) 23.9 20.0-40.0 [facility] HospitalOzlinonJJLUJAEMMP8407-64-68:27:00 Test Item Value Reference Range Interpretation Comments Monocytes (test code = Monocytes) 9.6 2.0-12.0 [facility] HospitalVsqeuocYEARPTZWTO2632-45-83 06:27:00 Test Item Value Reference Range Interpretation Comments Eosinophils (test code = 5.2 See_Comment [A utomated message] The Eosinophils) system which ge nerated this result tra nsmitted reference range : <=4.0. The reference r christiano was not used to int erpret this result as normal/abnormal . [facility] HospitalJougsjmOPWUMYJVQA7937-72-76:27:00 Test Item Value Reference Range Interpretation Comments Basophils (test code = 1.2 See_Comment [Aut omated message] The Basophils) system which ge nerated this result tra nsmitted reference range : <=1.0. The reference r christiano was not used to int erpret this result as normal/abnormal . [facility] HospitalJfishfkVBDDQPKAPX9279-31-67:27:00 Test Item Value Reference Range Interpretation Comments Neutrophils # (test code = Neutrophils 3.5 1.5-8.1 #) [facility] HospitalDfyfwcsHGDSHEFANH4429-57-03 06:27:00 Test Item Value Reference Range Interpretation Comments Lymphocytes # (test code = Lymphocytes 1.4 1.0-5.5 #) [facility] HospitalPmmrpzxDVCALCYATR5947-16-14 06:27:00 Test Item Value Reference Range Interpretation Comments Monocytes # (test code 0.6 See_Comment [Aut omated message] The = Monocytes #) system which generated this result tra nsmitted reference range : <=0.8. The reference r christiano was not used to int erpret this result as normal/abnormal . [facility] HospitalZvrokxoNWIPZDGBFQ4699-72-11 06:27:00 Test Item Value Reference Range Interpretation Comments Eosinophils # (test code 0.3 See_Comment [A utomated message] The = Eosinophils #) system whic h generated this result tra nsmitted reference range : <=0.5. The reference r christiano was not used to int erpret this result as normal/abnormal . [facility] HospitalDsskibdHQSRECPZOJ5666-46-44 06:27:00 Test Item Value Reference Range Interpretation Comments Basophils # (test code 0.1 See_Comment [Aut omated message] The = Basophils #) system which generated this result tra nsmitted reference range : <=0.2. The reference r christiano was not used to int erpret this result as normal/abnormal . [facility] HospitalZlphmsiYTOFJAIQBN7858-94-80 06:27:00 Test Item Value Reference Range Interpretation Comments ACT (TEG) Rapid (test code = ACT (TEG) 121 s 86-118 Rapid) [place] [address]-02-27 06:27:00 Test Item Value Reference Range Interpretation Comments Split Point Rapid (test code = Split 0.6 min Point Rapid) [place] [address]-02-27 06:27:00 Test Item Value Reference Range Interpretation Comments R-time Rapid (test code = R-time 0.8 min 0.4-0.7 Rapid) [place] [address]-02-27 06:27:00 Test Item Value Reference Range Interpretation Comments K-time Rapid (test code = K-time 0.8 min 0.6-2.3 Rapid) [place] [address]-02-27 06:27:00 Test Item Value Reference Range Interpretation Comments Angle Rapid (test code = Angle 79 degrees 64-80 Rapid) [place] [address]-02-27 06:27:00 Test Item Value Reference Range Interpretation Comments Max Amplitude Rapid (test code = Max 71 mm 52-71 Amplitude Rapid) [place] 633383-02-27 06:27:00 Test Item Value Reference Range Interpretation Comments G-value Rapid (test code = G-value 12.1 5.0-11.6 Rapid) [place] [address]-02-27 06:27:00 Test Item Value Reference Range Interpretation Comments Estimated % Lysis Rapid 0.0 See_Comment [Au tomated message] The (test code = Estimated syste m which generated % Lysis Rapid) this result t ransmitted reference range : <=7.5. The reference r christiano was not used to int erpret this result as normal/abnormal . [place] [address]-02-27 06:27:00 Test Item Value Reference Range Interpretation Comments RBC Morph (test code = Normal (11/27/22 12:27 RBC Morph) AM) [place] [address]-02-27 06:27:00 Test Item Value Reference Range Interpretation Comments Plt Morph (test code = Normal (11/27/22 12:27 Plt Morph) AM) [place] [address]-02-27 06:27:00 Test Item Value Reference Range Interpretation Comments Basophils # (test code 0.1 See_Comment [Aut omated message] The = Basophils #) system which generated this result tra nsmitted reference range : <=0.2. The reference r christiano was not used to int erpret this result as normal/abnormal . [place] 454363-02-27 06:27:00 Test Item Value Reference Range Interpretation Comments Glucose Lvl (test code = Glucose Lvl) 85 70-99 [place] 454363-02-27 06:27:00 Test Item Value Reference Range Interpretation Comments BUN (test code = BUN) 28 7-22 [place] [address]-02-27 06:27:00 Test Item Value Reference Range Interpretation Comments Creatinine Lvl (test code = Creatinine 2.19 0.50-1.40 Lvl) [place] 454363-02-27 06:27:00 Test Item Value Reference Range Interpretation Comments Sodium Lvl (test code = Sodium Lvl) 143 135-145 [place] 454363-02-27 06:27:00 Test Item Value Reference Range Interpretation Comments Potassium Lvl (test code = Potassium 4.3 3.5-5.1 Lvl) [place] 454363-02-27 06:27:00 Test Item Value Reference Range Interpretation Comments Chloride Lvl (test code = Chloride Lvl) 110 95-109 [place] 454363-02-27 06:27:00 Test Item Value Reference Range Interpretation Comments CO2 (test code = CO2) 27 24-32 [place] 454363-02-27 06:27:00 Test Item Value Reference Range Interpretation Comments Calcium Lvl (test code = Calcium Lvl) 8.1 8.5-10.5 [place] 454363-02-27 06:27:00 Test Item Value Reference Range Interpretation Comments AGAP (test code = AGAP) 10.3 10.0-20.0 [place] 454363-02-27 06:27:00 Test Item Value Reference Range Interpretation Comments eGFR (test code = eGFR) 22 [place] 454363-02-27 06:27:00 Test Item Value Reference Range Interpretation Comments Total Protein (test code = Total 6.6 6.4-8.4 Protein) [place] 454363-02-27 06:27:00 Test Item Value Reference Range Interpretation Comments Albumin Lvl (test code = Albumin Lvl) 3.0 3.5-5.0 [place] 454363-02-27 06:27:00 Test Item Value Reference Range Interpretation Comments Globulin (test code = Globulin) 3.6 2.7-4.2 [place] 454363-02-27 06:27:00 Test Item Value Reference Range Interpretation Comments A/G Ratio (test code = A/G Ratio) 0.8 1 0.7-1.6 [place] [address]-02-27 06:27:00 Test Item Value Reference Range Interpretation Comments ALANINE AMINOTRANSFERASE 21 See_Comment [A utomated message] (test code = ALANINE The sys tem which AMINOTRANSFERASE) generated this result transmitted ref erence range: <=65. Th e reference range was not used to int erpret this result as normal/abnormal . [place] 454363-02-27 06:27:00 Test Item Value Reference Range Interpretation Comments AST (test code = AST) 17 See_Comment [Auto mated message] The system which ge nerated this result transmit sheba reference range : <=37. The reference range was not used to interpr et this result as edy l/abnormal. [place] 454363-02-27 06:27:00 Test Item Value Reference Range Interpretation Comments Alk Phos (test code = Alk Phos) 84 39-136 [place] 454363-02-27 06:27:00 Test Item Value Reference Range Interpretation Comments Bili Total (test code = Bili Total) 0.3 0.2-1.3 [place] [address]-02-27 06:27:00 Test Item Value Reference Range Interpretation Comments Bili Direct (test code no gt See_Comment [Aut omated message] The = Bili Direct) system which generated this result tra nsmitted reference range : <=0.3. The reference r christiano was not used to int erpret this result as edy l/abnormal. [place] 454363-02-27 06:27:00 Test Item Value Reference Range Interpretation Comments Bili Indirect Unable to See_Comment [Automated (test code = Bili Calculate message] T he system Indirect) which generated this result transmitted reference range : <=1.0. The reference range was not used to interpret this result as normal/abnormal . [place] 454363-02-27 06:27:00 Test Item Value Reference Range Interpretation Comments Lactic Acid Lvl (test code = Lactic 0.5 0.5-2.2 Acid Lvl) [place] [address]-02-27 06:27:00 Test Item Value Reference Range Interpretation Comments Total Protein (test code = Total 6.6 6.4-8.4 Protein) [place] [address]-02-27 06:27:00 Test Item Value Reference Range Interpretation Comments Albumin Lvl (test code = Albumin Lvl) 3.0 3.5-5.0 [place] [address]-02-27 06:27:00 Test Item Value Reference Range Interpretation Comments Globulin (test code = Globulin) 3.6 2.7-4.2 [place] [address]-02-27 06:27:00 Test Item Value Reference Range Interpretation Comments A/G Ratio (test code = A/G Ratio) 0.8 1 0.7-1.6 [place] [address]-02-27 06:27:00 Test Item Value Reference Range Interpretation Comments ALANINE AMINOTRANSFERASE 21 See_Comment [A utomated message] (test code = ALANINE The sys tem which AMINOTRANSFERASE) generated this result transmitted ref erence range: <=65. Th e reference range was not used to int erpret this result as normal/abnormal . [facility] CenterUdqklirYCMXOSBEP8651-79-74 06:27:00 Test Item Value Reference Range Interpretation Comments AST (test code = AST) 17 See_Comment [Auto mated message] The system which ge nerated this result transmit sheba reference range : <=37. The reference range was not used to interpr et this result as edy l/abnormal. [facility] CenterGcychhgKULPCAMEP7304-39-62 06:27:00 Test Item Value Reference Range Interpretation Comments Alk Phos (test code = Alk Phos) 84 39-136 [facility] CenterRecosryCAJTRXSRW4379-37-19 06:27:00 Test Item Value Reference Range Interpretation Comments Bili Total (test code = Bili Total) 0.3 0.2-1.3 [facility] CenterRcfanaqFUNFIOMKI2372-34-51 06:27:00 Test Item Value Reference Range Interpretation Comments Bili Direct (test code no gt See_Comment [Aut omated message] The = Bili Direct) system which generated this result tra nsmitted reference range : <=0.3. The reference r christiano was not used to int erpret this result as edy l/abnormal. [facility] CenterWsshgnhRUBWHJYPR1466-23-18 06:27:00 Test Item Value Reference Range Interpretation Comments Bili Indirect Unable to See_Comment [Automated (test code = Bili Calculate message] T he system Indirect) which generated this result transmitted reference range : <=1.0. The reference range was not used to interpret this result as normal/abnormal . [facility] CenterDvyaxbqIQNJTHBYV9772-61-68 06:27:00 Test Item Value Reference Range Interpretation Comments pH Justin (test code = pH Justin) 7.29 1 7.28-7.42 [facility] CenterCezsgrbOVNGTMOYI1307-39-62 06:27:00 Test Item Value Reference Range Interpretation Comments pCO2 Justin (test code = pCO2 Justin) 65 38-52 [facility] CenterGphbnqkUZUVLTFYZ0228-10-74 06:27:00 Test Item Value Reference Range Interpretation Comments pO2 Justin (test code = pO2 Justin) 37 20-49 [facility]th[facility]fhIBHWCQGOD3028-56-55 06:27:00 Test Item Value Reference Range Interpretation Comments HCO3 Justin (test code = HCO3 Justin) 31 - [facility]iscoTurliscJLCYQMOZJ7104-55-89 06:27:00 Test Item Value Reference Range Interpretation Comments BE Justin (test code = BE Justin) 3 -2-2 [facility]iscoCvjaqotUWJIFGTAD1156-16-95 06:27:00 Test Item Value Reference Range Interpretation Comments O2 Sat Justin (calc) (test code = O2 Sat 63.0 40.0-70.0 Justin (calc)) [facility]iscoDzhmzaiQCQTGKHGE5293-61-93 06:27:00 Test Item Value Reference Range Interpretation Comments Temp Justin (test code = Temp Justin) 37.0 [facility]iscoZhombgiQEDWJGIPG3240-14-28 06:27:00 Test Item Value Reference Range Interpretation Comments Lactic Acid Lvl (test code = Lactic 0.5 0.5-2.2 Acid Lvl) [facility]iscoRuaoshoCZOQQMAWL7848-25-48 06:27:00 Test Item Value Reference Range Interpretation Comments TSH (test code = TSH) 0.403 0.360-3.740 [facility] HospitalBygpxknQUQPYCYOAJ2635-08-73 06:27:00 Test Item Value Reference Range Interpretation Comments WBC X 10x3 (test code = WBC X 10x3) 5.9 3.7-10.4 [facility] HospitalHipmmttBYNSTOOOIM6663-68-18 06:27:00 Test Item Value Reference Range Interpretation Comments RBC X 10x6 (test code = RBC X 10x6) 3.67 4.20-5.40 [facility] HospitalGujzwqwLKGBFUDFNX2726-69-78 06:27:00 Test Item Value Reference Range Interpretation Comments Hgb (test code = Hgb) 10.7 12.0-16.0 [place] 633383-02-27 06:27:00 Test Item Value Reference Range Interpretation Comments Hct (test code = Hct) 33.5 36.0-48.0 [facility] HospitalVmwfvoyWZZKHXRYHN6630-62-51 06:27:00 Test Item Value Reference Range Interpretation Comments MCV (test code = MCV) 91.4 80.0-98.0 [facility] HospitalUyztnieOCEMOYTLZZ4932-60-78 06:27:00 Test Item Value Reference Range Interpretation Comments MCH (test code = MCH) 29.3 pg 27.0-31.0 [place] 633383-02-27 06:27:00 Test Item Value Reference Range Interpretation Comments MCHC (test code = MCHC) 32.0 32.0-36.0 [place] 633383-02-27 06:27:00 Test Item Value Reference Range Interpretation Comments RDW (test code = RDW) 13.7 11.5-14.5 [place] [address]-02-27 06:27:00 Test Item Value Reference Range Interpretation Comments Platelet (test code = Platelet) 139 133-450 [place] 633383-02-27 06:27:00 Test Item Value Reference Range Interpretation Comments MPV (test code = MPV) 7.5 7.4-10.4 [place] [address]-02-27 06:27:00 Test Item Value Reference Range Interpretation Comments ACT (TEG) Rapid (test code = ACT (TEG) 121 s 86-118 Rapid) [place] [address]-02-27 06:27:00 Test Item Value Reference Range Interpretation Comments Split Point Rapid (test code = Split 0.6 min Point Rapid) [place] 633383-02-27 06:27:00 Test Item Value Reference Range Interpretation Comments R-time Rapid (test code = R-time 0.8 min 0.4-0.7 Rapid) [place] [address]-02-27 06:27:00 Test Item Value Reference Range Interpretation Comments K-time Rapid (test code = K-time 0.8 min 0.6-2.3 Rapid) [place] [address]-02-27 06:27:00 Test Item Value Reference Range Interpretation Comments Angle Rapid (test code = Angle 79 degrees 64-80 Rapid) [place] [address]-02-27 06:27:00 Test Item Value Reference Range Interpretation Comments Max Amplitude Rapid (test code = Max 71 mm 52-71 Amplitude Rapid) [place] [address]-02-27 06:27:00 Test Item Value Reference Range Interpretation Comments G-value Rapid (test code = G-value 12.1 5.0-11.6 Rapid) [place] 633383-02-27 06:27:00 Test Item Value Reference Range Interpretation Comments Estimated % Lysis Rapid 0.0 See_Comment [Au tomated message] The (test code = Estimated syste m which generated % Lysis Rapid) this result t ransmitted reference range : <=7.5. The reference r christiano was not used to int erpret this result as normal/abnormal . [facility] HospitalOvlgcrmTEETNJUVSS1555-71-19 06:27:00 Test Item Value Reference Range Interpretation Comments RBC Morph (test code = Normal (11/27/22 12:27 RBC Morph) AM) [facility] HospitalRorjxmoCPGKOWGFAQ4099-66-12 06:27:00 Test Item Value Reference Range Interpretation Comments Plt Morph (test code = Normal (11/27/22 12:27 Plt Morph) AM) [facility] HospitalOcurkhbJNVAKEVUVW7846-17-60 06:27:00 Test Item Value Reference Range Interpretation Comments Segs (test code = Segs) 60.1 45.0-75.0 [facility] HospitalJgimhahWXTPYZECHT9335-73-33 06:27:00 Test Item Value Reference Range Interpretation Comments Lymphocytes (test code = Lymphocytes) 23.9 20.0-40.0 [facility] HospitalQvwqznhKVUVBDLZSD0144-03-14 06:27:00 Test Item Value Reference Range Interpretation Comments Monocytes (test code = Monocytes) 9.6 2.0-12.0 [facility] HospitalZeyrskeMTVXCDUHGM3727-43-65 06:27:00 Test Item Value Reference Range Interpretation Comments Eosinophils (test code = 5.2 See_Comment [A utomated message] The Eosinophils) system which nerated this result tra nsmitted reference range : <=4.0. The reference r christiano was not used to int erpret this result as normal/abnormal . [facility] HospitalTsxsvzoUHIIXCIULR9112-90-81 06:27:00 Test Item Value Reference Range Interpretation Comments Basophils (test code = 1.2 See_Comment [Aut omated message] The Basophils) system which ge nerated this result tra nsmitted reference range : <=1.0. The reference r christiano was not used to int erpret this result as normal/abnormal . [facility] HospitalDnmjanpBXYSAAUQBM9828-34-99 06:27:00 Test Item Value Reference Range Interpretation Comments Neutrophils # (test code = Neutrophils 3.5 1.5-8.1 #) [facility] HospitalBdykccqCJWVUAENLR6097-12-85 06:27:00 Test Item Value Reference Range Interpretation Comments Lymphocytes # (test code = Lymphocytes 1.4 1.0-5.5 #) [facility] HospitalKwvhnzzZSSNLOQFMI1870-89-00 06:27:00 Test Item Value Reference Range Interpretation Comments Monocytes # (test code 0.6 See_Comment [Aut omated message] The = Monocytes #) system which generated this result tra nsmitted reference range : <=0.8. The reference r christiano was not used to int erpret this result as normal/abnormal . [facility] HospitalXcjxihqNYTWFKHKGX1923-38-08 06:27:00 Test Item Value Reference Range Interpretation Comments Eosinophils # (test code 0.3 See_Comment [A utomated message] The = Eosinophils #) system whic h generated this result tra nsmitted reference range : <=0.5. The reference r christiano was not used to int erpret this result as normal/abnormal . [facility] HospitalCcvvpiqHAKIOJGMWQ7452-71-66 06:27:00 Test Item Value Reference Range Interpretation Comments Basophils # (test code 0.1 See_Comment [Aut omated message] The = Basophils #) system which generated this result tra nsmitted reference range : <=0.2. The reference r christiano was not used to int erpret this result as normal/abnormal . [facility] HospitalXnejwopRMUHFUYEDB5052-01-83 06:27:00 Test Item Value Reference Range Interpretation Comments ACT (TEG) Rapid (test code = ACT (TEG) 121 s 86-118 Rapid) [place] 633383-02-27 06:27:00 Test Item Value Reference Range Interpretation Comments Split Point Rapid (test code = Split 0.6 min Point Rapid) [place] 633383-02-27 06:27:00 Test Item Value Reference Range Interpretation Comments R-time Rapid (test code = R-time 0.8 min 0.4-0.7 Rapid) [place] [address]-02-27 06:27:00 Test Item Value Reference Range Interpretation Comments K-time Rapid (test code = K-time 0.8 min 0.6-2.3 Rapid) [place] [address]-02-27 06:27:00 Test Item Value Reference Range Interpretation Comments Angle Rapid (test code = Angle 79 degrees 64-80 Rapid) [facility] HospitalMnggtmkQDETHOOVRU5627-67-89 06:27:00 Test Item Value Reference Range Interpretation Comments Max Amplitude Rapid (test code = Max 71 mm 52-71 Amplitude Rapid) [place] [address]-02-27 06:27:00 Test Item Value Reference Range Interpretation Comments G-value Rapid (test code = G-value 12.1 5.0-11.6 Rapid) [place] [address]-02-27 06:27:00 Test Item Value Reference Range Interpretation Comments Estimated % Lysis Rapid 0.0 See_Comment [Au tomated message] The (test code = Estimated syste m which generated % Lysis Rapid) this result t ransmitted reference range : <=7.5. The reference r christiano was not used to int erpret this result as normal/abnormal . [place] [address]-02-27 06:27:00 Test Item Value Reference Range Interpretation Comments RBC Morph (test code = Normal (11/27/22 12:27 RBC Morph) AM) [place] 633383-02-27 06:27:00 Test Item Value Reference Range Interpretation Comments Plt Morph (test code = Normal (11/27/22 12:27 Plt Morph) AM) [place] [address]-02-27 06:27:00 Test Item Value Reference Range Interpretation Comments Basophils # (test code 0.1 See_Comment [Aut omated message] The = Basophils #) system which generated this result tra nsmitted reference range : <=0.2. The reference r christiano was not used to int erpret this result as normal/abnormal . [facility]2023-02-27 06:27:00 Test Item Value Reference Range Interpretation Comments Glucose Lvl (test code = Glucose Lvl) 85 70-99 [place] 454363-02-27 06:27:00 Test Item Value Reference Range Interpretation Comments BUN (test code = BUN) 28 7-22 [place] [address]-02-27 06:27:00 Test Item Value Reference Range Interpretation Comments Creatinine Lvl (test code = Creatinine 2.19 0.50-1.40 Lvl) [place] 454363-02-27 06:27:00 Test Item Value Reference Range Interpretation Comments Sodium Lvl (test code = Sodium Lvl) 143 135-145 [place] 454363-02-27 06:27:00 Test Item Value Reference Range Interpretation Comments Potassium Lvl (test code = Potassium 4.3 3.5-5.1 Lvl) [place] 454363-02-27 06:27:00 Test Item Value Reference Range Interpretation Comments Chloride Lvl (test code = Chloride Lvl) 110 95-109 [place] 454363-02-27 06:27:00 Test Item Value Reference Range Interpretation Comments CO2 (test code = CO2) 27 24-32 [place] [address]-02-27 06:27:00 Test Item Value Reference Range Interpretation Comments Calcium Lvl (test code = Calcium Lvl) 8.1 8.5-10.5 [place] 454363-02-27 06:27:00 Test Item Value Reference Range Interpretation Comments AGAP (test code = AGAP) 10.3 10.0-20.0 [place] 454363-02-27 06:27:00 Test Item Value Reference Range Interpretation Comments eGFR (test code = eGFR) 22 [place] 454363-02-27 06:27:00 Test Item Value Reference Range Interpretation Comments Total Protein (test code = Total 6.6 6.4-8.4 Protein) [place] 454363-02-27 06:27:00 Test Item Value Reference Range Interpretation Comments Albumin Lvl (test code = Albumin Lvl) 3.0 3.5-5.0 [place] 454363-02-27 06:27:00 Test Item Value Reference Range Interpretation Comments Globulin (test code = Globulin) 3.6 2.7-4.2 [place] 454363-02-27 06:27:00 Test Item Value Reference Range Interpretation Comments A/G Ratio (test code = A/G Ratio) 0.8 1 0.7-1.6 [place] 454363-02-27 06:27:00 Test Item Value Reference Range Interpretation Comments ALANINE AMINOTRANSFERASE 21 See_Comment [A utomated message] (test code = ALANINE The sys tem which AMINOTRANSFERASE) generated this result transmitted ref erence range: <=65. Th e reference range was not used to int erpret this result as normal/abnormal . [place] 454363-02-27 06:27:00 Test Item Value Reference Range Interpretation Comments AST (test code = AST) 17 See_Comment [Auto mated message] The system which ge nerated this result transmit sheba reference range : <=37. The reference range was not used to interpr et this result as eyd l/abnormal. [place] 454363-02-27 06:27:00 Test Item Value Reference Range Interpretation Comments Alk Phos (test code = Alk Phos) 84 39-136 [place] 454363-02-27 06:27:00 Test Item Value Reference Range Interpretation Comments Bili Total (test code = Bili Total) 0.3 0.2-1.3 [place] 454363-02-27 06:27:00 Test Item Value Reference Range Interpretation Comments Bili Direct (test code no gt See_Comment [Aut omated message] The = Bili Direct) system which generated this result tra nsmitted reference range : <=0.3. The reference r christiano was not used to int erpret this result as edy l/abnormal. [place] 454363-02-27 06:27:00 Test Item Value Reference Range Interpretation Comments Bili Indirect Unable to See_Comment [Automated (test code = Bili Calculate message] T he system Indirect) which generated this result transmitted reference range : <=1.0. The reference range was not used to interpret this result as normal/abnormal . [place] 454363-02-27 06:27:00 Test Item Value Reference Range Interpretation Comments Lactic Acid Lvl (test code = Lactic 0.5 0.5-2.2 Acid Lvl) [place] [address]-02-27 06:27:00 Test Item Value Reference Range Interpretation Comments Total Protein (test code = Total 6.6 6.4-8.4 Protein) [place] [address]-02-27 06:27:00 Test Item Value Reference Range Interpretation Comments Albumin Lvl (test code = Albumin Lvl) 3.0 3.5-5.0 [place] [address]-02-27 06:27:00 Test Item Value Reference Range Interpretation Comments Globulin (test code = Globulin) 3.6 2.7-4.2 [place] [address]-02-27 06:27:00 Test Item Value Reference Range Interpretation Comments A/G Ratio (test code = A/G Ratio) 0.8 1 0.7-1.6 [place] [address]-02-27 06:27:00 Test Item Value Reference Range Interpretation Comments ALANINE AMINOTRANSFERASE 21 See_Comment [A utomated message] (test code = ALANINE The sys tem which AMINOTRANSFERASE) generated this result transmitted ref erence range: <=65. Th e reference range was not used to int erpret this result as normal/abnormal . [facility] CenterXeaepaoBZWSWLMVS1732-62-36 06:27:00 Test Item Value Reference Range Interpretation Comments AST (test code = AST) 17 See_Comment [Auto mated message] The system which ge nerated this result transmit sheba reference range : <=37. The reference range was not used to interpr et this result as edy l/abnormal. [facility] CenterKxyccudEIORXXTLV5134-92-61 06:27:00 Test Item Value Reference Range Interpretation Comments Alk Phos (test code = Alk Phos) 84 39-136 [facility] CenterRlguzunGFDYOIQBE0290-59-24 06:27:00 Test Item Value Reference Range Interpretation Comments Bili Total (test code = Bili Total) 0.3 0.2-1.3 [facility]WanlxzzEAIRMEVVK0997-00-75 06:27:00 Test Item Value Reference Range Interpretation Comments Bili Direct (test code no gt See_Comment [Aut omated message] The = Bili Direct) system which generated this result tra nsmitted reference range : <=0.3. The reference r christiano was not used to int erpret this result as edy l/abnormal. [facility] CenterBeivhucIGVYRCVJP3190-07-40 06:27:00 Test Item Value Reference Range Interpretation Comments Bili Indirect Unable to See_Comment [Automated (test code = Bili Calculate message] T he system Indirect) which generated this result transmitted reference range : <=1.0. The reference range was not used to interpret this result as normal/abnormal . [facility] CenterQgaczkyFZKBIVOZO0398-92-15 06:27:00 Test Item Value Reference Range Interpretation Comments pH Justin (test code = pH Justin) 7.29 1 7.28-7.42 [facility] CenterAsxozhsNVQUAVHEY9348-59-22 06:27:00 Test Item Value Reference Range Interpretation Comments pCO2 Justin (test code = pCO2 Justin) 65 38-52 [facility] CenterAibamakUYPLJFRPE3663-02-09 06:27:00 Test Item Value Reference Range Interpretation Comments pO2 Justin (test code = pO2 Justin) 37 20-49 [facility] CenterQseegzsUELKYZTMC5297-84-15 06:27:00 Test Item Value Reference Range Interpretation Comments HCO3 Justin (test code = HCO3 Justin) 31 22-26 [place] 711343-02-27 06:27:00 Test Item Value Reference Range Interpretation Comments BE Justin (test code = BE Justin) 3 -2-2 [place] 711343-02-27 06:27:00 Test Item Value Reference Range Interpretation Comments O2 Sat Justin (calc) (test code = O2 Sat 63.0 40.0-70.0 Justin (calc)) [facility]flrascVWJAWNUMY6353-11-57 06:27:00 Test Item Value Reference Range Interpretation Comments Temp Justin (test code = Temp Justin) 37.0 [place] 711343-02-27 06:27:00 Test Item Value Reference Range Interpretation Comments Lactic Acid Lvl (test code = Lactic 0.5 0.5-2.2 Acid Lvl) [facility]iscoZcnnfvqFPHVQMYQB4056-05-22 06:27:00 Test Item Value Reference Range Interpretation Comments TSH (test code = TSH) 0.403 0.360-3.740 [facility] HospitalTwudelyRHYMVFJXDJ8467-71-75 06:27:00 Test Item Value Reference Range Interpretation Comments WBC X 10x3 (test code = WBC X 10x3) 5.9 3.7-10.4 [facility] HospitalMkxabvjFRIRATTPET6334-78-95 06:27:00 Test Item Value Reference Range Interpretation Comments RBC X 10x6 (test code = RBC X 10x6) 3.67 4.20-5.40 [facility] HospitalUdlmwzwNWNMPNRGQX4276-47-11 06:27:00 Test Item Value Reference Range Interpretation Comments Hgb (test code = Hgb) 10.7 12.0-16.0 [place] [address]383-02-27 06:27:00 Test Item Value Reference Range Interpretation Comments Hct (test code = Hct) 33.5 36.0-48.0 [place] 633383-02-27 06:27:00 Test Item Value Reference Range Interpretation Comments MCV (test code = MCV) 91.4 80.0-98.0 [place] 633383-02-27 06:27:00 Test Item Value Reference Range Interpretation Comments MCH (test code = MCH) 29.3 pg 27.0-31.0 [facility] HospitalCgulmvqYBJPBWZPJU4868-31-14 06:27:00 Test Item Value Reference Range Interpretation Comments MCHC (test code = MCHC) 32.0 32.0-36.0 [place] [address]383-02-27 06:27:00 Test Item Value Reference Range Interpretation Comments RDW (test code = RDW) 13.7 11.5-14.5 [place] [address]383-02-27 06:27:00 Test Item Value Reference Range Interpretation Comments Platelet (test code = Platelet) 139 133-450 [place] 633383-02-27 06:27:00 Test Item Value Reference Range Interpretation Comments MPV (test code = MPV) 7.5 7.4-10.4 [place] 633383-02-27 06:27:00 Test Item Value Reference Range Interpretation Comments ACT (TEG) Rapid (test code = ACT (TEG) 121 s 86-118 Rapid) [place] [address]383-02-27 06:27:00 Test Item Value Reference Range Interpretation Comments Split Point Rapid (test code = Split 0.6 min Point Rapid) [place] 633383-02-27 06:27:00 Test Item Value Reference Range Interpretation Comments R-time Rapid (test code = R-time 0.8 min 0.4-0.7 Rapid) [place] [address]383-02-27 06:27:00 Test Item Value Reference Range Interpretation Comments K-time Rapid (test code = K-time 0.8 min 0.6-2.3 Rapid) [place] [address]383-02-27 06:27:00 Test Item Value Reference Range Interpretation Comments Angle Rapid (test code = Angle 79 degrees 64-80 Rapid) [place] 633383-02-27 06:27:00 Test Item Value Reference Range Interpretation Comments Max Amplitude Rapid (test code = Max 71 mm 52-71 Amplitude Rapid) [place] 633383-02-27 06:27:00 Test Item Value Reference Range Interpretation Comments G-value Rapid (test code = G-value 12.1 5.0-11.6 Rapid) [place] [address]383-02-27 06:27:00 Test Item Value Reference Range Interpretation Comments Estimated % Lysis Rapid 0.0 See_Comment [Au tomated message] The (test code = Estimated syste m which generated % Lysis Rapid) this result t ransmitted reference range : <=7.5. The reference r christiano was not used to int erpret this result as normal/abnormal . [facility] HospitalKydllutSGYZCPOOEF5529-38-23 06:27:00 Test Item Value Reference Range Interpretation Comments RBC Morph (test code = Normal (11/27/22 12:27 RBC Morph) AM) [facility] HospitalGmcnxqmXRVMGMCECG0656-45-48 06:27:00 Test Item Value Reference Range Interpretation Comments Plt Morph (test code = Normal (11/27/22 12:27 Plt Morph) AM) [place] 633383-02-27 06:27:00 Test Item Value Reference Range Interpretation Comments Segs (test code = Segs) 60.1 45.0-75.0 [place] 633383-02-27 06:27:00 Test Item Value Reference Range Interpretation Comments Lymphocytes (test code = Lymphocytes) 23.9 20.0-40.0 [place] 633383-02-27 06:27:00 Test Item Value Reference Range Interpretation Comments Monocytes (test code = Monocytes) 9.6 2.0-12.0 [place] [address]383-02-27 06:27:00 Test Item Value Reference Range Interpretation Comments Eosinophils (test code = 5.2 See_Comment [A utomated message] The Eosinophils) system which ge nerated this result tra nsmitted reference range : <=4.0. The reference r christiano was not used to int erpret this result as normal/abnormal . [facility] HospitalBijynllKMUYLPZZRT3568-20-49:27:00 Test Item Value Reference Range Interpretation Comments Basophils (test code = 1.2 See_Comment [Aut omated message] The Basophils) system which ge nerated this result tra nsmitted reference range : <=1.0. The reference r christiano was not used to int erpret this result as normal/abnormal . [facility] HospitalImhtaqcWBHSPIXKCE3892-98-90 06:27:00 Test Item Value Reference Range Interpretation Comments Neutrophils # (test code = Neutrophils 3.5 1.5-8.1 #) [facility] HospitalMajheyiFNITILYLZZ7734-28-17 06:27:00 Test Item Value Reference Range Interpretation Comments Lymphocytes # (test code = Lymphocytes 1.4 1.0-5.5 #) [place] [address]383-02-27 06:27:00 Test Item Value Reference Range Interpretation Comments Monocytes # (test code 0.6 See_Comment [Aut omated message] The = Monocytes #) system which generated this result tra nsmitted reference range : <=0.8. The reference r christiano was not used to int erpret this result as normal/abnormal . [facility] HospitalRknowxfUSLCNCIGUM7658-42-72 06:27:00 Test Item Value Reference Range Interpretation Comments Eosinophils # (test code 0.3 See_Comment [A utomated message] The = Eosinophils #) system whic h generated this result tra nsmitted reference range : <=0.5. The reference r christiano was not used to int erpret this result as normal/abnormal . [facility] HospitalRgvgcmyYMNDEMBFEN8287-44-78 06:27:00 Test Item Value Reference Range Interpretation Comments Basophils # (test code 0.1 See_Comment [Aut omated message] The = Basophils #) system which generated this result tra nsmitted reference range : <=0.2. The reference r christiano was not used to int erpret this result as normal/abnormal . [facility] HospitalXaatuscJMIJDLKHLV0410-84-23 06:27:00 Test Item Value Reference Range Interpretation Comments ACT (TEG) Rapid (test code = ACT (TEG) 121 s 86-118 Rapid) [place] [address]-02-27 06:27:00 Test Item Value Reference Range Interpretation Comments Split Point Rapid (test code = Split 0.6 min Point Rapid) [place] [address]-02-27 06:27:00 Test Item Value Reference Range Interpretation Comments R-time Rapid (test code = R-time 0.8 min 0.4-0.7 Rapid) [place] [address]-02-27 06:27:00 Test Item Value Reference Range Interpretation Comments K-time Rapid (test code = K-time 0.8 min 0.6-2.3 Rapid) [place] [address]-02-27 06:27:00 Test Item Value Reference Range Interpretation Comments Angle Rapid (test code = Angle 79 degrees 64-80 Rapid) [place] [address]-02-27 06:27:00 Test Item Value Reference Range Interpretation Comments Max Amplitude Rapid (test code = Max 71 mm 52-71 Amplitude Rapid) [place] [address]-02-27 06:27:00 Test Item Value Reference Range Interpretation Comments G-value Rapid (test code = G-value 12.1 5.0-11.6 Rapid) [place] [address]-02-27 06:27:00 Test Item Value Reference Range Interpretation Comments Estimated % Lysis Rapid 0.0 See_Comment [Au tomated message] The (test code = Estimated syste m which generated % Lysis Rapid) this result t ransmitted reference range : <=7.5. The reference r christiano was not used to int erpret this result as normal/abnormal . [place] [address]-02-27 06:27:00 Test Item Value Reference Range Interpretation Comments RBC Morph (test code = Normal (11/27/22 12:27 RBC Morph) AM) [place] [address]-02-27 06:27:00 Test Item Value Reference Range Interpretation Comments Plt Morph (test code = Normal (11/27/22 12:27 Plt Morph) AM) [place] [address]-02-27 06:27:00 Test Item Value Reference Range Interpretation Comments Basophils # (test code 0.1 See_Comment [Aut omated message] The = Basophils #) system which generated this result tra nsmitted reference range : <=0.2. The reference r christiano was not used to int erpret this result as normal/abnormal . [place]363-02-27 06:27:00 Test Item Value Reference Range Interpretation Comments Glucose Lvl (test code = Glucose Lvl) 85 70-99 [place] 454363-02-27 06:27:00 Test Item Value Reference Range Interpretation Comments BUN (test code = BUN) 28 7-22 [place] [address]-02-27 06:27:00 Test Item Value Reference Range Interpretation Comments Creatinine Lvl (test code = Creatinine 2.19 0.50-1.40 Lvl) [place] 454363-02-27 06:27:00 Test Item Value Reference Range Interpretation Comments Sodium Lvl (test code = Sodium Lvl) 143 135-145 [place] [address]-02-27 06:27:00 Test Item Value Reference Range Interpretation Comments Potassium Lvl (test code = Potassium 4.3 3.5-5.1 Lvl) [place] 454363-02-27 06:27:00 Test Item Value Reference Range Interpretation Comments Chloride Lvl (test code = Chloride Lvl) 110 95-109 [place] 454363-02-27 06:27:00 Test Item Value Reference Range Interpretation Comments CO2 (test code = CO2) 27 24-32 [place] 454363-02-27 06:27:00 Test Item Value Reference Range Interpretation Comments Calcium Lvl (test code = Calcium Lvl) 8.1 8.5-10.5 [place] 454363-02-27 06:27:00 Test Item Value Reference Range Interpretation Comments AGAP (test code = AGAP) 10.3 10.0-20.0 [place] 454363-02-27 06:27:00 Test Item Value Reference Range Interpretation Comments eGFR (test code = eGFR) 22 [place] 454363-02-27 06:27:00 Test Item Value Reference Range Interpretation Comments Total Protein (test code = Total 6.6 6.4-8.4 Protein) [place] 454363-02-27 06:27:00 Test Item Value Reference Range Interpretation Comments Albumin Lvl (test code = Albumin Lvl) 3.0 3.5-5.0 [place] 454363-02-27 06:27:00 Test Item Value Reference Range Interpretation Comments Globulin (test code = Globulin) 3.6 2.7-4.2 [place] 454363-02-27 06:27:00 Test Item Value Reference Range Interpretation Comments A/G Ratio (test code = A/G Ratio) 0.8 1 0.7-1.6 [place] 454363-02-27 06:27:00 Test Item Value Reference Range Interpretation Comments ALANINE AMINOTRANSFERASE 21 See_Comment [A utomated message] (test code = ALANINE The sys tem which AMINOTRANSFERASE) generated this result transmitted ref erence range: <=65. Th e reference range was not used to int erpret this result as normal/abnormal . [place] 454363-02-27 06:27:00 Test Item Value Reference Range Interpretation Comments AST (test code = AST) 17 See_Comment [Auto mated message] The system which ge nerated this result transmit sheba reference range : <=37. The reference range was not used to interpr et this result as edy l/abnormal. [facility] EventsTR[facility] [address]YTMLW2947-92-18 06:27:00 Test Item Value Reference Range Interpretation Comments Alk Phos (test code = Alk Phos) 84 39-136 [place] 454363-02-27 06:27:00 Test Item Value Reference Range Interpretation Comments Bili Total (test code = Bili Total) 0.3 0.2-1.3 [place] 454363-02-27 06:27:00 Test Item Value Reference Range Interpretation Comments Bili Direct (test code no gt See_Comment [Aut omated message] The = Bili Direct) system which generated this result tra nsmitted reference range : <=0.3. The reference r christiano was not used to int erpret this result as edy l/abnormal. [facility] CenterRysto TAMGW4773-87-93 06:27:00 Test Item Value Reference Range Interpretation Comments Bili Indirect Unable to See_Comment [Automated (test code = Bili Calculate message] T he system Indirect) which generated this result transmitted reference range : <=1.0. The reference range was not used to interpret this result as normal/abnormal . [facility] CenterSilver [facility] EventsTRACY [place] [address]NWSFT9975-04-81 06:27:00 Test Item Value Reference Range Interpretation Comments Lactic Acid Lvl (test code = Lactic 0.5 0.5-2.2 Acid Lvl) [place] 711343-02-27 06:27:00 Test Item Value Reference Range Interpretation Comments Total Protein (test code = Total 6.6 6.4-8.4 Protein) [place] [address]-02-27 06:27:00 Test Item Value Reference Range Interpretation Comments Albumin Lvl (test code = Albumin Lvl) 3.0 3.5-5.0 [place] [address]-02-27 06:27:00 Test Item Value Reference Range Interpretation Comments Globulin (test code = Globulin) 3.6 2.7-4.2 [place] [address]-02-27 06:27:00 Test Item Value Reference Range Interpretation Comments A/G Ratio (test code = A/G Ratio) 0.8 1 0.7-1.6 [place] 711343-02-27 06:27:00 Test Item Value Reference Range Interpretation Comments ALANINE AMINOTRANSFERASE 21 See_Comment [A utomated message] (test code = ALANINE The sys tem which AMINOTRANSFERASE) generated this result transmitted ref erence range: <=65. Th e reference range was not used to int erpret this result as normal/abnormal . [facility] CenterLetjcdhMGZWTHRPK6179-76-67 06:27:00 Test Item Value Reference Range Interpretation Comments AST (test code = AST) 17 See_Comment [Auto mated message] The system which ge nerated this result transmit sheba reference range : <=37. The reference range was not used to interpr et this result as edy l/abnormal. [facility] CenterPqnjothQQATJUXYK0205-66-10 06:27:00 Test Item Value Reference Range Interpretation Comments Alk Phos (test code = Alk Phos) 84 39-136 [facility] CenterMujpcbfJGPYMOFYS9446-85-91 06:27:00 Test Item Value Reference Range Interpretation Comments Bili Total (test code = Bili Total) 0.3 0.2-1.3 [facility] CenterZndlbvlWTJNZDZHF7947-66-37 06:27:00 Test Item Value Reference Range Interpretation Comments Bili Direct (test code no gt See_Comment [Aut omated message] The = Bili Direct) system which generated this result tra nsmitted reference range : <=0.3. The reference r christiano was not used to int erpret this result as edy l/abnormal. [facility] CenterYaqtobsYCVGHTUCA9961-36-82 06:27:00 Test Item Value Reference Range Interpretation Comments Bili Indirect Unable to See_Comment [Automated (test code = Bili Calculate message] T he system Indirect) which generated this result transmitted reference range : <=1.0. The reference range was not used to interpret this result as normal/abnormal . [facility] CenterNdrixnmVCZLXZWZD4441-49-35 06:27:00 Test Item Value Reference Range Interpretation Comments pH Justin (test code = pH Justin) 7.29 1 7.28-7.42 [facility] CenterGqtiwvhENDTCFTPO0134-71-63 06:27:00 Test Item Value Reference Range Interpretation Comments pCO2 Justin (test code = pCO2 Justin) 65 38-52 [facility] CenterWfvrtfuQMTWZWQSW0502-12-06 06:27:00 Test Item Value Reference Range Interpretation Comments pO2 Justin (test code = pO2 Justin) 37 20-49 [facility] CenterFfnuuwbBJBSGHOES9848-12-59 06:27:00 Test Item Value Reference Range Interpretation Comments HCO3 Justin (test code = HCO3 Justin) 31 22-26 [facility]HIPOYNFIR8703-19-72 06:27:00 Test Item Value Reference Range Interpretation Comments BE Justin (test code = BE Justin) 3 -2-2 [facility]iscoEawdvrfRACOJHRBA9903-86-22 06:27:00 Test Item Value Reference Range Interpretation Comments O2 Sat Justin (calc) (test code = O2 Sat 63.0 40.0-70.0 Justin (calc)) [facility]iscoWwdrmzcIMIJBMJGS8238-05-99 06:27:00 Test Item Value Reference Range Interpretation Comments Temp Justin (test code = Temp Justin) 37.0 [facility]iscoNnjohrlMSSGRYMGN7206-87-55 06:27:00 Test Item Value Reference Range Interpretation Comments Lactic Acid Lvl (test code = Lactic 0.5 0.5-2.2 Acid Lvl) [facility]iscoYeuibivHNOMTPXAN3667-64-12 06:27:00 Test Item Value Reference Range Interpretation Comments TSH (test code = TSH) 0.403 0.360-3.740 [facility] HospitalVwbkneyXGAWGRWEEM6505-88-19 06:27:00 Test Item Value Reference Range Interpretation Comments WBC X 10x3 (test code = WBC X 10x3) 5.9 3.7-10.4 [facility] HospitalVrmnspxXQGKSMOFTR3373-14-48 06:27:00 Test Item Value Reference Range Interpretation Comments RBC X 10x6 (test code = RBC X 10x6) 3.67 4.20-5.40 [facility] HospitalWaigadzZLVJUQWRIN3783-03-28 06:27:00 Test Item Value Reference Range Interpretation Comments Hgb (test code = Hgb) 10.7 12.0-16.0 [facility] HospitalYcmqyseBMIWIKBFND1465-31-53 06:27:00 Test Item Value Reference Range Interpretation Comments Hct (test code = Hct) 33.5 36.0-48.0 [place] 633383-02-27 06:27:00 Test Item Value Reference Range Interpretation Comments MCV (test code = MCV) 91.4 80.0-98.0 [place] 633383-02-27 06:27:00 Test Item Value Reference Range Interpretation Comments MCH (test code = MCH) 29.3 pg 27.0-31.0 [facility] HospitalSagsqltIWAYFTRCHG5190-85-81 06:27:00 Test Item Value Reference Range Interpretation Comments MCHC (test code = MCHC) 32.0 32.0-36.0 [place] 633383-02-27 06:27:00 Test Item Value Reference Range Interpretation Comments RDW (test code = RDW) 13.7 11.5-14.5 [place] [address]-02-27 06:27:00 Test Item Value Reference Range Interpretation Comments Platelet (test code = Platelet) 139 133-450 [place] 633383-02-27 06:27:00 Test Item Value Reference Range Interpretation Comments MPV (test code = MPV) 7.5 7.4-10.4 [place] [address]-02-27 06:27:00 Test Item Value Reference Range Interpretation Comments ACT (TEG) Rapid (test code = ACT (TEG) 121 s 86-118 Rapid) [place] [address]383-02-27 06:27:00 Test Item Value Reference Range Interpretation Comments Split Point Rapid (test code = Split 0.6 min Point Rapid) [place] 633383-02-27 06:27:00 Test Item Value Reference Range Interpretation Comments R-time Rapid (test code = R-time 0.8 min 0.4-0.7 Rapid) [place] 633383-02-27 06:27:00 Test Item Value Reference Range Interpretation Comments K-time Rapid (test code = K-time 0.8 min 0.6-2.3 Rapid) [place] [address]383-02-27 06:27:00 Test Item Value Reference Range Interpretation Comments Angle Rapid (test code = Angle 79 degrees 64-80 Rapid) [place] 633383-02-27 06:27:00 Test Item Value Reference Range Interpretation Comments Max Amplitude Rapid (test code = Max 71 mm 52-71 Amplitude Rapid) [place] 633383-02-27 06:27:00 Test Item Value Reference Range Interpretation Comments G-value Rapid (test code = G-value 12.1 5.0-11.6 Rapid) [place] 633383-02-27 06:27:00 Test Item Value Reference Range Interpretation Comments Estimated % Lysis Rapid 0.0 See_Comment [Au tomated message] The (test code = Estimated syste m which generated % Lysis Rapid) this result t ransmitted reference range : <=7.5. The reference r christiano was not used to int erpret this result as normal/abnormal . [facility] HospitalJoofoclAZFALIFDDT6892-21-66 06:27:00 Test Item Value Reference Range Interpretation Comments RBC Morph (test code = Normal (11/27/22 12:27 RBC Morph) AM) [facility] HospitalKisaayxPRUBDVCZGR7771-50-58 06:27:00 Test Item Value Reference Range Interpretation Comments Plt Morph (test code = Normal (11/27/22 12:27 Plt Morph) AM) [facility] HospitalKkrkwtfUEVISYERVO5150-30-21 06:27:00 Test Item Value Reference Range Interpretation Comments Segs (test code = Segs) 60.1 45.0-75.0 [place] 633383-02-27:27:00 Test Item Value Reference Range Interpretation Comments Lymphocytes (test code = Lymphocytes) 23.9 20.0-40.0 [facility] HospitalEugexiyQLQJPDMBPP4064-03-21 06:27:00 Test Item Value Reference Range Interpretation Comments Monocytes (test code = Monocytes) 9.6 2.0-12.0 [facility] HospitalGawxlfcZQIYNBVAFD7500-37-07 06:27:00 Test Item Value Reference Range Interpretation Comments Eosinophils (test code = 5.2 See_Comment [A utomated message] The Eosinophils) system which ge nerated this result tra nsmitted reference range : <=4.0. The reference r christiano was not used to int erpret this result as normal/abnormal . [facility] HospitalQeydhseKTXBJWGEOH5274-31-35 06:27:00 Test Item Value Reference Range Interpretation Comments Basophils (test code = 1.2 See_Comment [Aut omated message] The Basophils) system which ge nerated this result tra nsmitted reference range : <=1.0. The reference r christiano was not used to int erpret this result as normal/abnormal . [facility] HospitalFtbutmoLJTIHELMTN6194-08-73 06:27:00 Test Item Value Reference Range Interpretation Comments Neutrophils # (test code = Neutrophils 3.5 1.5-8.1 #) [facility] HospitalGjierqaGNFODTTZKR6102-21-06 06:27:00 Test Item Value Reference Range Interpretation Comments Lymphocytes # (test code = Lymphocytes 1.4 1.0-5.5 #) [place] [address]383-02-27 06:27:00 Test Item Value Reference Range Interpretation Comments Monocytes # (test code 0.6 See_Comment [Aut omated message] The = Monocytes #) system which generated this result tra nsmitted reference range : <=0.8. The reference r christiano was not used to int erpret this result as normal/abnormal . [facility] HospitalOutijgcOAJTBPQXTV1197-69-20 06:27:00 Test Item Value Reference Range Interpretation Comments Eosinophils # (test code 0.3 See_Comment [A utomated message] The = Eosinophils #) system whic h generated this result tra nsmitted reference range : <=0.5. The reference r christiano was not used to int erpret this result as normal/abnormal . [facility] HospitalHyfsczuXOGDHTWEGS6960-31-41 06:27:00 Test Item Value Reference Range Interpretation Comments Basophils # (test code 0.1 See_Comment [Aut omated message] The = Basophils #) system which generated this result tra nsmitted reference range : <=0.2. The reference r christiano was not used to int erpret this result as normal/abnormal . [facility] HospitalOcbkauiHMDLJHEYPG4448-51-77 06:27:00 Test Item Value Reference Range Interpretation Comments ACT (TEG) Rapid (test code = ACT (TEG) 121 s 86-118 Rapid) [place] [address]383-02-27 06:27:00 Test Item Value Reference Range Interpretation Comments Split Point Rapid (test code = Split 0.6 min Point Rapid) [place] 633383-02-27 06:27:00 Test Item Value Reference Range Interpretation Comments R-time Rapid (test code = R-time 0.8 min 0.4-0.7 Rapid) [place] [address]383-02-27 06:27:00 Test Item Value Reference Range Interpretation Comments K-time Rapid (test code = K-time 0.8 min 0.6-2.3 Rapid) [place] [address]-02-27 06:27:00 Test Item Value Reference Range Interpretation Comments Angle Rapid (test code = Angle 79 degrees 64-80 Rapid) [place] 633383-02-27 06:27:00 Test Item Value Reference Range Interpretation Comments Max Amplitude Rapid (test code = Max 71 mm 52-71 Amplitude Rapid) [place] 633383-02-27 06:27:00 Test Item Value Reference Range Interpretation Comments G-value Rapid (test code = G-value 12.1 5.0-11.6 Rapid) [place] [address]-02-27 06:27:00 Test Item Value Reference Range Interpretation Comments Estimated % Lysis Rapid 0.0 See_Comment [Au tomated message] The (test code = Estimated syste m which generated % Lysis Rapid) this result t ransmitted reference range : <=7.5. The reference r christiano was not used to int erpret this result as normal/abnormal . [place] 633383-02-27 06:27:00 Test Item Value Reference Range Interpretation Comments RBC Morph (test code = Normal (11/27/22 12:27 RBC Morph) AM) [place] [address]-02-27 06:27:00 Test Item Value Reference Range Interpretation Comments Plt Morph (test code = Normal (11/27/22 12:27 Plt Morph) AM) [place] [address]-02-27 06:27:00 Test Item Value Reference Range Interpretation Comments Basophils # (test code 0.1 See_Comment [Aut omated message] The = Basophils #) system which generated this result tra nsmitted reference range : <=0.2. The reference r christiano was not used to int erpret this result as normal/abnormal . [place] 454363-02-27 06:27:00 Test Item Value Reference Range Interpretation Comments Glucose Lvl (test code = Glucose Lvl) 85 70-99 [place] 454363-02-27 06:27:00 Test Item Value Reference Range Interpretation Comments BUN (test code = BUN) 28 7-22 [place] [address]-02-27 06:27:00 Test Item Value Reference Range Interpretation Comments Creatinine Lvl (test code = Creatinine 2.19 0.50-1.40 Lvl) [place] 454363-02-27 06:27:00 Test Item Value Reference Range Interpretation Comments Sodium Lvl (test code = Sodium Lvl) 143 135-145 [place] 454363-02-27 06:27:00 Test Item Value Reference Range Interpretation Comments Potassium Lvl (test code = Potassium 4.3 3.5-5.1 Lvl) [place] 454363-02-27 06:27:00 Test Item Value Reference Range Interpretation Comments Chloride Lvl (test code = Chloride Lvl) 110 95-109 [facility]2023-02-27 06:27:00 Test Item Value Reference Range Interpretation Comments CO2 (test code = CO2) 27 24-32 [place] 454363-02-27 06:27:00 Test Item Value Reference Range Interpretation Comments Calcium Lvl (test code = Calcium Lvl) 8.1 8.5-10.5 [facility]2023-02-27 06:27:00 Test Item Value Reference Range Interpretation Comments AGAP (test code = AGAP) 10.3 10.0-20.0 [facility]2023-02-27 06:27:00 Test Item Value Reference Range Interpretation Comments eGFR (test code = eGFR) 22 [facility]2023-02-27 06:27:00 Test Item Value Reference Range Interpretation Comments Total Protein (test code = Total 6.6 6.4-8.4 Protein) [facility]2023-02-27 06:27:00 Test Item Value Reference Range Interpretation Comments Albumin Lvl (test code = Albumin Lvl) 3.0 3.5-5.0 [facility]2023-02-27 06:27:00 Test Item Value Reference Range Interpretation Comments Globulin (test code = Globulin) 3.6 2.7-4.2 [facility]2023-02-27 06:27:00 Test Item Value Reference Range Interpretation Comments A/G Ratio (test code = A/G Ratio) 0.8 1 0.7-1.6 [place] 454363-02-27 06:27:00 Test Item Value Reference Range Interpretation Comments ALANINE AMINOTRANSFERASE 21 See_Comment [A utomated message] (test code = ALANINE The sys tem which AMINOTRANSFERASE) generated this result transmitted ref erence range: <=65. Th e reference range was not used to int erpret this result as normal/abnormal . [facility]2023-02-27 06:27:00 Test Item Value Reference Range Interpretation Comments AST (test code = AST) 17 See_Comment [Auto mated message] The system which ge nerated this result transmit sheba reference range : <=37. The reference range was not used to interpr et this result as edy l/abnormal. [place] 454363-02-27 06:27:00 Test Item Value Reference Range Interpretation Comments Alk Phos (test code = Alk Phos) 84 39-136 [place] 454363-02-27 06:27:00 Test Item Value Reference Range Interpretation Comments Bili Total (test code = Bili Total) 0.3 0.2-1.3 [place] [address]-02-27 06:27:00 Test Item Value Reference Range Interpretation Comments Bili Direct (test code no gt See_Comment [Aut omated message] The = Bili Direct) system which generated this result tra nsmitted reference range : <=0.3. The reference r christiano was not used to int erpret this result as edy l/abnormal. [place] 454363-02-27 06:27:00 Test Item Value Reference Range Interpretation Comments Bili Indirect Unable to See_Comment [Automated (test code = Bili Calculate message] T he system Indirect) which generated this result transmitted reference range : <=1.0. The reference range was not used to interpret this result as normal/abnormal . [place] 454363-02-27 06:27:00 Test Item Value Reference Range Interpretation Comments Lactic Acid Lvl (test code = Lactic 0.5 0.5-2.2 Acid Lvl) [place] [address]-02-27 06:27:00 Test Item Value Reference Range Interpretation Comments Total Protein (test code = Total 6.6 6.4-8.4 Protein) [place] [address]-02-27 06:27:00 Test Item Value Reference Range Interpretation Comments Albumin Lvl (test code = Albumin Lvl) 3.0 3.5-5.0 [place] [address]-02-27 06:27:00 Test Item Value Reference Range Interpretation Comments Globulin (test code = Globulin) 3.6 2.7-4.2 [place] [address]-02-27 06:27:00 Test Item Value Reference Range Interpretation Comments A/G Ratio (test code = A/G Ratio) 0.8 1 0.7-1.6 [place] [address]-02-27 06:27:00 Test Item Value Reference Range Interpretation Comments ALANINE AMINOTRANSFERASE 21 See_Comment [A utomated message] (test code = ALANINE The sys tem which AMINOTRANSFERASE) generated this result transmitted ref erence range: <=65. Th e reference range was not used to int erpret this result as normal/abnormal . [facility] CenterGqpdtcuWTDFKPEHV9408-21-16 06:27:00 Test Item Value Reference Range Interpretation Comments AST (test code = AST) 17 See_Comment [Auto mated message] The system which ge nerated this result transmit sheba reference range : <=37. The reference range was not used to interpr et this result as edy l/abnormal. [facility] CenterDjtwuslVNYEVZANM4825-28-12 06:27:00 Test Item Value Reference Range Interpretation Comments Alk Phos (test code = Alk Phos) 84 39-136 [facility] CenterUrogblwSYGETPRYH9247-03-81 06:27:00 Test Item Value Reference Range Interpretation Comments Bili Total (test code = Bili Total) 0.3 0.2-1.3 [facility] CenterMvpqxgpMBYKKJNZN9520-36-64 06:27:00 Test Item Value Reference Range Interpretation Comments Bili Direct (test code no gt See_Comment [Aut omated message] The = Bili Direct) system which generated this result tra nsmitted reference range : <=0.3. The reference r christiano was not used to int erpret this result as edy l/abnormal. [facility] CenterKvzdikwMPRQJFEPO5518-26-85:27:00 Test Item Value Reference Range Interpretation Comments Bili Indirect Unable to See_Comment [Automated (test code = Bili Calculate message] T he system Indirect) which generated this result transmitted reference range : <=1.0. The reference range was not used to interpret this result as normal/abnormal . [facility] CenterUqvizpbVHTTGMJTK4527-85-53 06:27:00 Test Item Value Reference Range Interpretation Comments pH Justin (test code = pH Justin) 7.29 1 7.28-7.42 [facility]QzwfckqPCCXKUPBZ6855-68-56 06:27:00 Test Item Value Reference Range Interpretation Comments pCO2 Justin (test code = pCO2 Justin) 65 38-52 [facility]qHJMKFARUE2266-83-92 06:27:00 Test Item Value Reference Range Interpretation Comments pO2 Justin (test code = pO2 Justin) 37 20-49 [facility] CenterSsfeudqPWUARQOYV6468-78-18 06:27:00 Test Item Value Reference Range Interpretation Comments HCO3 Justin (test code = HCO3 Justin) 31 22- [facility]aykizzMFEYNPETX1586-53-76 06:27:00 Test Item Value Reference Range Interpretation Comments BE Justin (test code = BE Justin) 3 -2-2 [facility]NjntuxcBBVOQLNDM0088-96-22 06:27:00 Test Item Value Reference Range Interpretation Comments O2 Sat Justin (calc) (test code = O2 Sat 63.0 40.0-70.0 Justin (calc)) [facility]QugjgqkVUHNIKUWW4933-53-71 06:27:00 Test Item Value Reference Range Interpretation Comments Temp Justin (test code = Temp Justin) 37.0 [place] 711343-02-27 06:27:00 Test Item Value Reference Range Interpretation Comments Lactic Acid Lvl (test code = Lactic 0.5 0.5-2.2 Acid Lvl) [facility]ZotulpvAPNKHPNOE8800-99-40 06:27:00 Test Item Value Reference Range Interpretation Comments TSH (test code = TSH) 0.403 0.360-3.740 [facility] HospitalHxsdexbIMTNZZENTM9945-84-89 06:27:00 Test Item Value Reference Range Interpretation Comments WBC X 10x3 (test code = WBC X 10x3) 5.9 3.7-10.4 [facility] HospitalEafznpbAIPMIYOBGQ8816-42-05 06:27:00 Test Item Value Reference Range Interpretation Comments RBC X 10x6 (test code = RBC X 10x6) 3.67 4.20-5.40 [facility] HospitalNxzailuDOILNZBTWE9107-88-45 06:27:00 Test Item Value Reference Range Interpretation Comments Hgb (test code = Hgb) 10.7 12.0-16.0 [facility] HospitalNxsmgarMYEAPXQNIB6561-57-07 06:27:00 Test Item Value Reference Range Interpretation Comments Hct (test code = Hct) 33.5 36.0-48.0 [place] 633383-02-27 06:27:00 Test Item Value Reference Range Interpretation Comments MCV (test code = MCV) 91.4 80.0-98.0 [facility] HospitalOwzuzhpKLQNUHMCTV0825-68-67 06:27:00 Test Item Value Reference Range Interpretation Comments MCH (test code = MCH) 29.3 pg 27.0-31.0 [facility] HospitalAgagaxcLWOOMYTBLI5835-48-50 06:27:00 Test Item Value Reference Range Interpretation Comments MCHC (test code = MCHC) 32.0 32.0-36.0 [place] 633383-02-27 06:27:00 Test Item Value Reference Range Interpretation Comments RDW (test code = RDW) 13.7 11.5-14.5 [place] 633383-02-27 06:27:00 Test Item Value Reference Range Interpretation Comments Platelet (test code = Platelet) 139 133-450 [place] 633383-02-27 06:27:00 Test Item Value Reference Range Interpretation Comments MPV (test code = MPV) 7.5 7.4-10.4 [place] [address]-02-27 06:27:00 Test Item Value Reference Range Interpretation Comments ACT (TEG) Rapid (test code = ACT (TEG) 121 s 86-118 Rapid) [place] 633383-02-27 06:27:00 Test Item Value Reference Range Interpretation Comments Split Point Rapid (test code = Split 0.6 min Point Rapid) [place] 633383-02-27 06:27:00 Test Item Value Reference Range Interpretation Comments R-time Rapid (test code = R-time 0.8 min 0.4-0.7 Rapid) [place] [address]-02-27 06:27:00 Test Item Value Reference Range Interpretation Comments K-time Rapid (test code = K-time 0.8 min 0.6-2.3 Rapid) [place] [address]-02-27 06:27:00 Test Item Value Reference Range Interpretation Comments Angle Rapid (test code = Angle 79 degrees 64-80 Rapid) [place] [address]-02-27 06:27:00 Test Item Value Reference Range Interpretation Comments Max Amplitude Rapid (test code = Max 71 mm 52-71 Amplitude Rapid) [place] [address]-02-27 06:27:00 Test Item Value Reference Range Interpretation Comments G-value Rapid (test code = G-value 12.1 5.0-11.6 Rapid) [place] 633383-02-27 06:27:00 Test Item Value Reference Range Interpretation Comments Estimated % Lysis Rapid 0.0 See_Comment [Au tomated message] The (test code = Estimated syste m which generated % Lysis Rapid) this result t ransmitted reference range : <=7.5. The reference r christiano was not used to int erpret this result as normal/abnormal . [facility] HospitalIetdqzzAMMKSGROVQ0158-28-49 06:27:00 Test Item Value Reference Range Interpretation Comments RBC Morph (test code = Normal (11/27/22 12:27 RBC Morph) AM) [facility] HospitalMluwhwzFNJFOLNKDM2667-95-49 06:27:00 Test Item Value Reference Range Interpretation Comments Plt Morph (test code = Normal (11/27/22 12:27 Plt Morph) AM) [facility] HospitalNlxnlypDUMAQOBAHM8603-69-48 06:27:00 Test Item Value Reference Range Interpretation Comments Segs (test code = Segs) 60.1 45.0-75.0 [place] 633383-02-27 06:27:00 Test Item Value Reference Range Interpretation Comments Lymphocytes (test code = Lymphocytes) 23.9 20.0-40.0 [place] 633383-02-27 06:27:00 Test Item Value Reference Range Interpretation Comments Monocytes (test code = Monocytes) 9.6 2.0-12.0 [facility] HospitalOddykqxNGMSWWVJPO9146-86-56 06:27:00 Test Item Value Reference Range Interpretation Comments Eosinophils (test code = 5.2 See_Comment [A utomated message] The Eosinophils) system which ge nerated this result tra nsmitted reference range : <=4.0. The reference r christiano was not used to int erpret this result as normal/abnormal . [facility] HospitalGmonduhCSXVEWTZSQ2192-00-11 06:27:00 Test Item Value Reference Range Interpretation Comments Basophils (test code = 1.2 See_Comment [Aut omated message] The Basophils) system which ge nerated this result tra nsmitted reference range : <=1.0. The reference r christiano was not used to int erpret this result as normal/abnormal . [facility] HospitalRxwpbcxRIFBIFIXJC1994-40-04 06:27:00 Test Item Value Reference Range Interpretation Comments Neutrophils # (test code = Neutrophils 3.5 1.5-8.1 #) [facility] HospitalFjslpajJAHEPLNZDA2042-85-42 06:27:00 Test Item Value Reference Range Interpretation Comments Lymphocytes # (test code = Lymphocytes 1.4 1.0-5.5 #) [facility] HospitalPezjwobEYAZGLXIUU1889-88-07 06:27:00 Test Item Value Reference Range Interpretation Comments Monocytes # (test code 0.6 See_Comment [Aut omated message] The = Monocytes #) system which generated this result tra nsmitted reference range : <=0.8. The reference r christiano was not used to int erpret this result as normal/abnormal . [facility] HospitalPpsqxidXAXRBZTWIR8218-31-69 06:27:00 Test Item Value Reference Range Interpretation Comments Eosinophils # (test code 0.3 See_Comment [A utomated message] The = Eosinophils #) system whic h generated this result tra nsmitted reference range : <=0.5. The reference r christiano was not used to int erpret this result as normal/abnormal . [facility] HospitalDjnpwteEVOGQUBHNN6459-79-06 06:27:00 Test Item Value Reference Range Interpretation Comments Basophils # (test code 0.1 See_Comment [Aut omated message] The = Basophils #) system which generated this result tra nsmitted reference range : <=0.2. The reference r christiano was not used to int erpret this result as normal/abnormal . [place] [address]383-02-27 06:27:00 Test Item Value Reference Range Interpretation Comments ACT (TEG) Rapid (test code = ACT (TEG) 121 s 86-118 Rapid) [place] [address]-02-27 06:27:00 Test Item Value Reference Range Interpretation Comments Split Point Rapid (test code = Split 0.6 min Point Rapid) [place] [address]-02-27 06:27:00 Test Item Value Reference Range Interpretation Comments R-time Rapid (test code = R-time 0.8 min 0.4-0.7 Rapid) [place] [address]-02-27 06:27:00 Test Item Value Reference Range Interpretation Comments K-time Rapid (test code = K-time 0.8 min 0.6-2.3 Rapid) [place] [address]-02-27 06:27:00 Test Item Value Reference Range Interpretation Comments Angle Rapid (test code = Angle 79 degrees 64-80 Rapid) [place] [address]-02-27 06:27:00 Test Item Value Reference Range Interpretation Comments Max Amplitude Rapid (test code = Max 71 mm 52-71 Amplitude Rapid) [place] [address]-02-27 06:27:00 Test Item Value Reference Range Interpretation Comments G-value Rapid (test code = G-value 12.1 5.0-11.6 Rapid) [place] [address]-02-27 06:27:00 Test Item Value Reference Range Interpretation Comments Estimated % Lysis Rapid 0.0 See_Comment [Au tomated message] The (test code = Estimated syste m which generated % Lysis Rapid) this result t ransmitted reference range : <=7.5. The reference r christiano was not used to int erpret this result as normal/abnormal . [place] 633383-02-27 06:27:00 Test Item Value Reference Range Interpretation Comments RBC Morph (test code = Normal (11/27/22 12:27 RBC Morph) AM) [place] [address]-02-27 06:27:00 Test Item Value Reference Range Interpretation Comments Plt Morph (test code = Normal (11/27/22 12:27 Plt Morph) AM) [place] [address]-02-27 06:27:00 Test Item Value Reference Range Interpretation Comments Basophils # (test code 0.1 See_Comment [Aut omated message] The = Basophils #) system which generated this result tra nsmitted reference range : <=0.2. The reference r christiano was not used to int erpret this result as normal/abnormal . [place] 454363-02-27 06:27:00 Test Item Value Reference Range Interpretation Comments Glucose Lvl (test code = Glucose Lvl) 85 70-99 [place] 454363-02-27 06:27:00 Test Item Value Reference Range Interpretation Comments BUN (test code = BUN) 28 7-22 [place] [address]-02-27 06:27:00 Test Item Value Reference Range Interpretation Comments Creatinine Lvl (test code = Creatinine 2.19 0.50-1.40 Lvl) [place] 454363-02-27 06:27:00 Test Item Value Reference Range Interpretation Comments Sodium Lvl (test code = Sodium Lvl) 143 135-145 [place] 454363-02-27 06:27:00 Test Item Value Reference Range Interpretation Comments Potassium Lvl (test code = Potassium 4.3 3.5-5.1 Lvl) [place] 454363-02-27 06:27:00 Test Item Value Reference Range Interpretation Comments Chloride Lvl (test code = Chloride Lvl) 110 95-109 [facility]2023-02-27 06:27:00 Test Item Value Reference Range Interpretation Comments CO2 (test code = CO2) 27 24-32 [place] 454363-02-27 06:27:00 Test Item Value Reference Range Interpretation Comments Calcium Lvl (test code = Calcium Lvl) 8.1 8.5-10.5 [place] 454363-02-27 06:27:00 Test Item Value Reference Range Interpretation Comments AGAP (test code = AGAP) 10.3 10.0-20.0 [place] 454363-02-27 06:27:00 Test Item Value Reference Range Interpretation Comments eGFR (test code = eGFR) 22 [place] 454363-02-27 06:27:00 Test Item Value Reference Range Interpretation Comments Total Protein (test code = Total 6.6 6.4-8.4 Protein) [place] 454363-02-27 06:27:00 Test Item Value Reference Range Interpretation Comments Albumin Lvl (test code = Albumin Lvl) 3.0 3.5-5.0 [place] 454363-02-27 06:27:00 Test Item Value Reference Range Interpretation Comments Globulin (test code = Globulin) 3.6 2.7-4.2 [place] 454363-02-27 06:27:00 Test Item Value Reference Range Interpretation Comments A/G Ratio (test code = A/G Ratio) 0.8 1 0.7-1.6 [place] 454363-02-27 06:27:00 Test Item Value Reference Range Interpretation Comments ALANINE AMINOTRANSFERASE 21 See_Comment [A utomated message] (test code = ALANINE The sys tem which AMINOTRANSFERASE) generated this result transmitted ref erence range: <=65. Th e reference range was not used to int erpret this result as normal/abnormal . [place] 454363-02-27 06:27:00 Test Item Value Reference Range Interpretation Comments AST (test code = AST) 17 See_Comment [Auto mated message] The system which ge nerated this result transmit sheba reference range : <=37. The reference range was not used to interpr et this result as edy l/abnormal. [place] 454363-02-27 06:27:00 Test Item Value Reference Range Interpretation Comments Alk Phos (test code = Alk Phos) 84 39-136 [facility]2023-02-27 06:27:00 Test Item Value Reference Range Interpretation Comments Bili Total (test code = Bili Total) 0.3 0.2-1.3 [facility]2023-02-27 06:27:00 Test Item Value Reference Range Interpretation Comments Bili Direct (test code no gt See_Comment [Aut omated message] The = Bili Direct) system which generated this result tra nsmitted reference range : <=0.3. The reference r christiano was not used to int erpret this result as edy l/abnormal. [facility]2023-02-27 06:27:00 Test Item Value Reference Range Interpretation Comments Bili Indirect Unable to See_Comment [Automated (test code = Bili Calculate message] T he system Indirect) which generated this result transmitted reference range : <=1.0. The reference range was not used to interpret this result as normal/abnormal . [facility]2023-02-27 06:27:00 Test Item Value Reference Range Interpretation Comments Lactic Acid Lvl (test code = Lactic 0.5 0.5-2.2 Acid Lvl) [place] 711343-02-27 06:27:00 Test Item Value Reference Range Interpretation Comments Total Protein (test code = Total 6.6 6.4-8.4 Protein) [place] [address]-02-27 06:27:00 Test Item Value Reference Range Interpretation Comments Albumin Lvl (test code = Albumin Lvl) 3.0 3.5-5.0 [place] [address]-02-27 06:27:00 Test Item Value Reference Range Interpretation Comments Globulin (test code = Globulin) 3.6 2.7-4.2 [place] [address]-02-27 06:27:00 Test Item Value Reference Range Interpretation Comments A/G Ratio (test code = A/G Ratio) 0.8 1 0.7-1.6 [place] 711343-02-27 06:27:00 Test Item Value Reference Range Interpretation Comments ALANINE AMINOTRANSFERASE 21 See_Comment [A utomated message] (test code = ALANINE The sys tem which AMINOTRANSFERASE) generated this result transmitted ref erence range: <=65. Th e reference range was not used to int erpret this result as normal/abnormal . [facility] CenterExjzgffLROAFRSQA8074-99-70 06:27:00 Test Item Value Reference Range Interpretation Comments AST (test code = AST) 17 See_Comment [Auto mated message] The system which ge nerated this result transmit sheba reference range : <=37. The reference range was not used to interpr et this result as edy l/abnormal. [facility] CenterByiisbaZMWZBHLGE3333-62-95 06:27:00 Test Item Value Reference Range Interpretation Comments Alk Phos (test code = Alk Phos) 84 39-136 [facility] CenterSoabzqrTSDJOUPGM8698-69-92 06:27:00 Test Item Value Reference Range Interpretation Comments Bili Total (test code = Bili Total) 0.3 0.2-1.3 [facility] CenterVtrfiahBRURTWZUN5789-55-96 06:27:00 Test Item Value Reference Range Interpretation Comments Bili Direct (test code no gt See_Comment [Aut omated message] The = Bili Direct) system which generated this result tra nsmitted reference range : <=0.3. The reference r christiano was not used to int erpret this result as edy l/abnormal. [facility] CenterQdmkxmsTXCYIUPQC2530-26-69 06:27:00 Test Item Value Reference Range Interpretation Comments Bili Indirect Unable to See_Comment [Automated (test code = Bili Calculate message] T he system Indirect) which generated this result transmitted reference range : <=1.0. The reference range was not used to interpret this result as normal/abnormal . [facility] CenterAoogwuaAKYCBODKJ4586-02-13 06:27:00 Test Item Value Reference Range Interpretation Comments pH Justin (test code = pH Justin) 7.29 1 7.28-7.42 [facility] CenterOcutufuFWFSHBCXY4822-69-55 06:27:00 Test Item Value Reference Range Interpretation Comments pCO2 Justin (test code = pCO2 Justin) 65 38-52 [facility] CenterYufftqrRCBMYRZPY6038-28-42 06:27:00 Test Item Value Reference Range Interpretation Comments pO2 Justin (test code = pO2 Justin) 37 20-49 [facility] CenterWphxwvqABXPTEVXK2427-11-14 06:27:00 Test Item Value Reference Range Interpretation Comments HCO3 Justin (test code = HCO3 Justin) 31 22-26 [place] 711343-02-27 06:27:00 Test Item Value Reference Range Interpretation Comments BE Justin (test code = BE Justin) 3 -2-2 [facility]jdqdcpNVZPLADCD4708-[facility]-60 06:27:00 Test Item Value Reference Range Interpretation Comments O2 Sat Justin (calc) (test code = O2 Sat 63.0 40.0-70.0 Justin (calc)) [facility]iscoPkyrppuGGXKMMERS8254-65-63 06:27:00 Test Item Value Reference Range Interpretation Comments Temp Justin (test code = Temp Justin) 37.0 [place] 711343-02-27 06:27:00 Test Item Value Reference Range Interpretation Comments Lactic Acid Lvl (test code = Lactic 0.5 0.5-2.2 Acid Lvl) [facility]WrkkuasQOGPHCQJR7256-01-27 06:27:00 Test Item Value Reference Range Interpretation Comments TSH (test code = TSH) 0.403 0.360-3.740 [facility] HospitalObjjuxkBPDCCXWVUH4880-09-97 06:27:00 Test Item Value Reference Range Interpretation Comments WBC X 10x3 (test code = WBC X 10x3) 5.9 3.7-10.4 [facility] HospitalRccnxsoTVYTNCVTAN5910-83-34 06:27:00 Test Item Value Reference Range Interpretation Comments RBC X 10x6 (test code = RBC X 10x6) 3.67 4.20-5.40 [facility] HospitalXcpgnazMZVJMHVPXB0784-50-07 06:27:00 Test Item Value Reference Range Interpretation Comments Hgb (test code = Hgb) 10.7 12.0-16.0 [facility] HospitalWnslanaPLPKAMYBFN7383-63-54 06:27:00 Test Item Value Reference Range Interpretation Comments Hct (test code = Hct) 33.5 36.0-48.0 [place] 633383-02-27 06:27:00 Test Item Value Reference Range Interpretation Comments MCV (test code = MCV) 91.4 80.0-98.0 [place] 633383-02-27 06:27:00 Test Item Value Reference Range Interpretation Comments MCH (test code = MCH) 29.3 pg 27.0-31.0 [facility] HospitalYbaduddZDHUFAVTLD9567-14-37 06:27:00 Test Item Value Reference Range Interpretation Comments MCHC (test code = MCHC) 32.0 32.0-36.0 [place] [address]-02-27 06:27:00 Test Item Value Reference Range Interpretation Comments RDW (test code = RDW) 13.7 11.5-14.5 [place] [address]-02-27 06:27:00 Test Item Value Reference Range Interpretation Comments Platelet (test code = Platelet) 139 133-450 [place] [address]-02-27 06:27:00 Test Item Value Reference Range Interpretation Comments MPV (test code = MPV) 7.5 7.4-10.4 [place] [address]-02-27 06:27:00 Test Item Value Reference Range Interpretation Comments ACT (TEG) Rapid (test code = ACT (TEG) 121 s 86-118 Rapid) [address]02-27 06:27:00 Test Item Value Reference Range Interpretation Comments Split Point Rapid (test code = Split 0.6 min Point Rapid) [place] [address]-02-27 06:27:00 Test Item Value Reference Range Interpretation Comments R-time Rapid (test code = R-time 0.8 min 0.4-0.7 Rapid) [place] [address]-02-27 06:27:00 Test Item Value Reference Range Interpretation Comments K-time Rapid (test code = K-time 0.8 min 0.6-2.3 Rapid) [place] [address]-02-27 06:27:00 Test Item Value Reference Range Interpretation Comments Angle Rapid (test code = Angle 79 degrees 64-80 Rapid) [place] [address]-02-27 06:27:00 Test Item Value Reference Range Interpretation Comments Max Amplitude Rapid (test code = Max 71 mm 52-71 Amplitude Rapid) [place] [address]-02-27 06:27:00 Test Item Value Reference Range Interpretation Comments G-value Rapid (test code = G-value 12.1 5.0-11.6 Rapid) [place] [address]-02-27 06:27:00 Test Item Value Reference Range Interpretation Comments Estimated % Lysis Rapid 0.0 See_Comment [Au tomated message] The (test code = Estimated syste m which generated % Lysis Rapid) this result t ransmitted reference range : <=7.5. The reference r christiano was not used to int erpret this result as normal/abnormal . [facility] HospitalNqpqtjqTHPOLWOUOU4943-91-68:27:00 Test Item Value Reference Range Interpretation Comments RBC Morph (test code = Normal (11/27/22 12:27 RBC Morph) AM) [facility] HospitalLfjewgaKNTWWRHTEJ8013-92-98 06:27:00 Test Item Value Reference Range Interpretation Comments Plt Morph (test code = Normal (11/27/22 12:27 Plt Morph) AM) [facility] HospitalNymfvomTZNYUPEVIR3358-90-09:27:00 Test Item Value Reference Range Interpretation Comments Segs (test code = Segs) 60.1 45.0-75.0 [place] [address]383-02-27:27:00 Test Item Value Reference Range Interpretation Comments Lymphocytes (test code = Lymphocytes) 23.9 20.0-40.0 [facility] HospitalQavhcwqACASSJBYTM6323-73-80:27:00 Test Item Value Reference Range Interpretation Comments Monocytes (test code = Monocytes) 9.6 2.0-12.0 [facility] HospitalMgtcfohQPVNQBWNDL6161-57-65:27:00 Test Item Value Reference Range Interpretation Comments Eosinophils (test code = 5.2 See_Comment [A utomated message] The Eosinophils) system which ge nerated this result tra nsmitted reference range : <=4.0. The reference r christiano was not used to int erpret this result as normal/abnormal . [facility] HospitalSlmcjmhJEOUCXPFRL7432-42-91:27:00 Test Item Value Reference Range Interpretation Comments Basophils (test code = 1.2 See_Comment [Aut omated message] The Basophils) system which ge nerated this result tra nsmitted reference range : <=1.0. The reference r christiano was not used to int erpret this result as normal/abnormal . [facility] HospitalSalkoabNIWTZTZVRS2005-15-78:27:00 Test Item Value Reference Range Interpretation Comments Neutrophils # (test code = Neutrophils 3.5 1.5-8.1 #) [facility] HospitalVauzvbqQUXFLYAAIT0840-97-12 06:27:00 Test Item Value Reference Range Interpretation Comments Lymphocytes # (test code = Lymphocytes 1.4 1.0-5.5 #) [place] [address]383-02-27 06:27:00 Test Item Value Reference Range Interpretation Comments Monocytes # (test code 0.6 See_Comment [Aut omated message] The = Monocytes #) system which generated this result tra nsmitted reference range : <=0.8. The reference r christiano was not used to int erpret this result as normal/abnormal . [facility] HospitalPeplcuwONKWBTXZPN3396-26-64 06:27:00 Test Item Value Reference Range Interpretation Comments Eosinophils # (test code 0.3 See_Comment [A utomated message] The = Eosinophils #) system whic h generated this result tra nsmitted reference range : <=0.5. The reference r christiano was not used to int erpret this result as normal/abnormal . [facility] HospitalOteoxjbGDKQFJVPVT7224-93-65 06:27:00 Test Item Value Reference Range Interpretation Comments Basophils # (test code 0.1 See_Comment [Aut omated message] The = Basophils #) system which generated this result tra nsmitted reference range : <=0.2. The reference r christiano was not used to int erpret this result as normal/abnormal . [place] [address]383-02-27 06:27:00 Test Item Value Reference Range Interpretation Comments ACT (TEG) Rapid (test code = ACT (TEG) 121 s 86-118 Rapid) [place] [address]-02-27 06:27:00 Test Item Value Reference Range Interpretation Comments Split Point Rapid (test code = Split 0.6 min Point Rapid) [place] [address]-02-27 06:27:00 Test Item Value Reference Range Interpretation Comments R-time Rapid (test code = R-time 0.8 min 0.4-0.7 Rapid) [place] [address]-02-27 06:27:00 Test Item Value Reference Range Interpretation Comments K-time Rapid (test code = K-time 0.8 min 0.6-2.3 Rapid) [place] [address]-02-27 06:27:00 Test Item Value Reference Range Interpretation Comments Angle Rapid (test code = Angle 79 degrees 64-80 Rapid) [place] [address]-02-27 06:27:00 Test Item Value Reference Range Interpretation Comments Max Amplitude Rapid (test code = Max 71 mm 52-71 Amplitude Rapid) [place] [address]-02-27 06:27:00 Test Item Value Reference Range Interpretation Comments G-value Rapid (test code = G-value 12.1 5.0-11.6 Rapid) [place] [address]383-02-27 06:27:00 Test Item Value Reference Range Interpretation Comments Estimated % Lysis Rapid 0.0 See_Comment [Au tomated message] The (test code = Estimated syste m which generated % Lysis Rapid) this result t ransmitted reference range : <=7.5. The reference r christiano was not used to int erpret this result as normal/abnormal . [place] 633383-02-27 06:27:00 Test Item Value Reference Range Interpretation Comments RBC Morph (test code = Normal (11/27/22 12:27 RBC Morph) AM) [place] [address]-02-27 06:27:00 Test Item Value Reference Range Interpretation Comments Plt Morph (test code = Normal (11/27/22 12:27 Plt Morph) AM) [place] [address]-02-27 06:27:00 Test Item Value Reference Range Interpretation Comments Basophils # (test code 0.1 See_Comment [Aut omated message] The = Basophils #) system which generated this result tra nsmitted reference range : <=0.2. The reference r christiano was not used to int erpret this result as normal/abnormal . [facility] [employer] [id number] 06:27:00 Test Item Value Reference Range Interpretation Comments Glucose Lvl (test code = Glucose Lvl) 85 70-99 [place] 454363-02-27 06:27:00 Test Item Value Reference Range Interpretation Comments BUN (test code = BUN) 28 7-22 [facility] [employer] [id number] 06:27:00 Test Item Value Reference Range Interpretation Comments Creatinine Lvl (test code = Creatinine 2.19 0.50-1.40 Lvl) [place] 454363-02-27 06:27:00 Test Item Value Reference Range Interpretation Comments Sodium Lvl (test code = Sodium Lvl) 143 135-145 [facility] [employer] [id number] 06:27:00 Test Item Value Reference Range Interpretation Comments Potassium Lvl (test code = Potassium 4.3 3.5-5.1 Lvl) [place] [address]-02-27 06:27:00 Test Item Value Reference Range Interpretation Comments Chloride Lvl (test code = Chloride Lvl) 110 95-109 [place] 454363-02-27 06:27:00 Test Item Value Reference Range Interpretation Comments CO2 (test code = CO2) 27 24-32 [place] 454363-02-27 06:27:00 Test Item Value Reference Range Interpretation Comments Calcium Lvl (test code = Calcium Lvl) 8.1 8.5-10.5 [place] 454363-02-27 06:27:00 Test Item Value Reference Range Interpretation Comments AGAP (test code = AGAP) 10.3 10.0-20.0 [place] 454363-02-27 06:27:00 Test Item Value Reference Range Interpretation Comments eGFR (test code = eGFR) 22 [place] 454363-02-27 06:27:00 Test Item Value Reference Range Interpretation Comments Total Protein (test code = Total 6.6 6.4-8.4 Protein) [place] 454363-02-27 06:27:00 Test Item Value Reference Range Interpretation Comments Albumin Lvl (test code = Albumin Lvl) 3.0 3.5-5.0 [place] 454363-02-27 06:27:00 Test Item Value Reference Range Interpretation Comments Globulin (test code = Globulin) 3.6 2.7-4.2 [place] 454363-02-27 06:27:00 Test Item Value Reference Range Interpretation Comments A/G Ratio (test code = A/G Ratio) 0.8 1 0.7-1.6 [place] 454363-02-27 06:27:00 Test Item Value Reference Range Interpretation Comments ALANINE AMINOTRANSFERASE 21 See_Comment [A utomated message] (test code = ALANINE The sys tem which AMINOTRANSFERASE) generated this result transmitted ref erence range: <=65. Th e reference range was not used to int erpret this result as normal/abnormal . [place] 454363-02-27 06:27:00 Test Item Value Reference Range Interpretation Comments AST (test code = AST) 17 See_Comment [Auto mated message] The system which ge nerated this result transmit sheba reference range : <=37. The reference range was not used to interpr et this result as edy l/abnormal. [place] 454363-02-27 06:27:00 Test Item Value Reference Range Interpretation Comments Alk Phos (test code = Alk Phos) 84 39-136 [facility]2023-02-27 06:27:00 Test Item Value Reference Range Interpretation Comments Bili Total (test code = Bili Total) 0.3 0.2-1.3 [place] 454363-02-27 06:27:00 Test Item Value Reference Range Interpretation Comments Bili Direct (test code no gt See_Comment [Aut omated message] The = Bili Direct) system which generated this result tra nsmitted reference range : <=0.3. The reference r christiano was not used to int erpret this result as edy l/abnormal. [facility]2023-02-27 06:27:00 Test Item Value Reference Range Interpretation Comments Bili Indirect Unable to See_Comment [Automated (test code = Bili Calculate message] T he system Indirect) which generated this result transmitted reference range : <=1.0. The reference range was not used to interpret this result as normal/abnormal . [facility]2023-02-27 06:27:00 Test Item Value Reference Range Interpretation Comments Lactic Acid Lvl (test code = Lactic 0.5 0.5-2.2 Acid Lvl) [facility]IL[facility]VE[facility]60[facility] 06:27:00 Test Item Value Reference Range Interpretation Comments Total Protein (test code = Total 6.6 6.4-8.4 Protein) [place] 711343-02-27 06:27:00 Test Item Value Reference Range Interpretation Comments Albumin Lvl (test code = Albumin Lvl) 3.0 3.5-5.0 [place] 711343-02-27 06:27:00 Test Item Value Reference Range Interpretation Comments Globulin (test code = Globulin) 3.6 2.7-4.2 [place] [address]-02-27 06:27:00 Test Item Value Reference Range Interpretation Comments A/G Ratio (test code = A/G Ratio) 0.8 1 0.7-1.6 [place] 711343-02-27 06:27:00 Test Item Value Reference Range Interpretation Comments ALANINE AMINOTRANSFERASE 21 See_Comment [A utomated message] (test code = ALANINE The sys tem which AMINOTRANSFERASE) generated this result transmitted ref erence range: <=65. Th e reference range was not used to int erpret this result as normal/abnormal . [facility]Zj[facility]gsgZ[facility]AIKSXDX5718[facility]-53 06:27:00 Test Item Value Reference Range Interpretation Comments AST (test code = AST) 17 See_Comment [Auto mated message] The system which ge nerated this result transmit sheba reference range : <=37. The reference range was not used to interpr et this result as edy l/abnormal. [facility] CenterWzqlvigJNGNTKGJI9671-71-10 06:27:00 Test Item Value Reference Range Interpretation Comments Alk Phos (test code = Alk Phos) 84 39-136 [facility] HospitalTawfbhtIFRZDUICZ3335-88-80 06:27:00 Test Item Value Reference Range Interpretation Comments Bili Total (test code = Bili Total) 0.3 0.2-1.3 [facility]fbkkpzKJQBZPIOE9085-24-10 06:27:00 Test Item Value Reference Range Interpretation Comments Bili Direct (test code no gt See_Comment [Aut omated message] The = Bili Direct) system which generated this result tra nsmitted reference range : <=0.3. The reference r christiano was not used to int erpret this result as edy l/abnormal. [facility] HospitalAuwbpcfZQCCHXVLG8017-36-13 06:27:00 Test Item Value Reference Range Interpretation Comments Bili Indirect Unable to See_Comment [Automated (test code = Bili Calculate message] T he system Indirect) which generated this result transmitted reference range : <=1.0. The reference range was not used to interpret this result as normal/abnormal . [facility] CenterFyklkktCSGFNKIXJ6325-12-33 06:27:00 Test Item Value Reference Range Interpretation Comments pH Justin (test code = pH Justin) 7.29 1 7.28-7.42 [facility] HospitalSgyapgyMFONXSIRZ7319-33-05 06:27:00 Test Item Value Reference Range Interpretation Comments pCO2 Justin (test code = pCO2 Justin) 65 38-52 [facility]QengcjzPQBRFDUUJ5877-07-36 06:27:00 Test Item Value Reference Range Interpretation Comments pO2 Justin (test code = pO2 Justin) 37 20-49 [facility]VqnvgtyDQKKMFFMW8240-89-84 06:27:00 Test Item Value Reference Range Interpretation Comments HCO3 Justin (test code = HCO3 Justin) 31 22-26 [facility] HospitalSrhkgcvBALKNDOLH2154-94-49 06:27:00 Test Item Value Reference Range Interpretation Comments BE Justin (test code = BE Justin) 3 -2-2 [facility]iscoLwdwhsuFYFRJTBFQ1398-75-58 06:27:00 Test Item Value Reference Range Interpretation Comments O2 Sat Justin (calc) (test code = O2 Sat 63.0 40.0-70.0 Justin (calc)) [facility]iscoStzczzxQDZDNXXJI7765-96-21 06:27:00 Test Item Value Reference Range Interpretation Comments Temp Justin (test code = Temp Justin) 37.0 [facility]iscoTfijcgkTUFIGBTTN8206-66-02 06:27:00 Test Item Value Reference Range Interpretation Comments Lactic Acid Lvl (test code = Lactic 0.5 0.5-2.2 Acid Lvl) [facility]iscoXxaevvqKUDXETBLP4973-77-48 06:27:00 Test Item Value Reference Range Interpretation Comments TSH (test code = TSH) 0.403 0.360-3.740 [facility] HospitalBspfymzQFONYQUHTD9743-98-59 06:27:00 Test Item Value Reference Range Interpretation Comments WBC X 10x3 (test code = WBC X 10x3) 5.9 3.7-10.4 [facility] HospitalTaxnkxiIGVPQLGTCH3543-59-95 06:27:00 Test Item Value Reference Range Interpretation Comments RBC X 10x6 (test code = RBC X 10x6) 3.67 4.20-5.40 [facility] HospitalEratggsIRSXUABNOS4360-37-87 06:27:00 Test Item Value Reference Range Interpretation Comments Hgb (test code = Hgb) 10.7 12.0-16.0 [facility] HospitalQsswwhxNIVDGBPLOS0485-38-25 06:27:00 Test Item Value Reference Range Interpretation Comments Hct (test code = Hct) 33.5 36.0-48.0 [facility] HospitalVgqsenpBKIDGXJQJB8958-57-75 06:27:00 Test Item Value Reference Range Interpretation Comments MCV (test code = MCV) 91.4 80.0-98.0 [facility] HospitalFjoqbpdVXBYAUBQBE8620-31-36 06:27:00 Test Item Value Reference Range Interpretation Comments MCH (test code = MCH) 29.3 pg 27.0-31.0 [facility] HospitalYsoupgtYYTNIPCTLJ6998-70-98 06:27:00 Test Item Value Reference Range Interpretation Comments MCHC (test code = MCHC) 32.0 32.0-36.0 [place] [address]-02-27 06:27:00 Test Item Value Reference Range Interpretation Comments RDW (test code = RDW) 13.7 11.5-14.5 [place] [address]-02-27 06:27:00 Test Item Value Reference Range Interpretation Comments Platelet (test code = Platelet) 139 133-450 [place] [address]-02-27 06:27:00 Test Item Value Reference Range Interpretation Comments MPV (test code = MPV) 7.5 7.4-10.4 [place] [address]-02-27 06:27:00 Test Item Value Reference Range Interpretation Comments ACT (TEG) Rapid (test code = ACT (TEG) 121 s 86-118 Rapid) [address]02-27 06:27:00 Test Item Value Reference Range Interpretation Comments Split Point Rapid (test code = Split 0.6 min Point Rapid) [address]02-27 06:27:00 Test Item Value Reference Range Interpretation Comments R-time Rapid (test code = R-time 0.8 min 0.4-0.7 Rapid) [address]02-27 06:27:00 Test Item Value Reference Range Interpretation Comments K-time Rapid (test code = K-time 0.8 min 0.6-2.3 Rapid) [address]02-27 06:27:00 Test Item Value Reference Range Interpretation Comments Angle Rapid (test code = Angle 79 degrees 64-80 Rapid) [address]02-27 06:27:00 Test Item Value Reference Range Interpretation Comments Max Amplitude Rapid (test code = Max 71 mm 52-71 Amplitude Rapid) [place] [address]-02-27 06:27:00 Test Item Value Reference Range Interpretation Comments G-value Rapid (test code = G-value 12.1 5.0-11.6 Rapid) [place] [address]-02-27 06:27:00 Test Item Value Reference Range Interpretation Comments Estimated % Lysis Rapid 0.0 See_Comment [Au tomated message] The (test code = Estimated syste m which generated % Lysis Rapid) this result t ransmitted reference range : <=7.5. The reference r christiano was not used to int erpret this result as normal/abnormal . [facility] HospitalEffbpeqRCTCIPLSJX5168-24-41 06:27:00 Test Item Value Reference Range Interpretation Comments RBC Morph (test code = Normal (11/27/22 12:27 RBC Morph) AM) [facility] HospitalNcxawjbVQUWSYBVGA4794-67-56 06:27:00 Test Item Value Reference Range Interpretation Comments Plt Morph (test code = Normal (11/27/22 12:27 Plt Morph) AM) [facility] HospitalUpokrtkKCVTYUZQHK6301-62-35 06:27:00 Test Item Value Reference Range Interpretation Comments Segs (test code = Segs) 60.1 45.0-75.0 [place] 633383-02-27 06:27:00 Test Item Value Reference Range Interpretation Comments Lymphocytes (test code = Lymphocytes) 23.9 20.0-40.0 [place] 633383-02-27 06:27:00 Test Item Value Reference Range Interpretation Comments Monocytes (test code = Monocytes) 9.6 2.0-12.0 [facility] HospitalQsyafurRMFAUWUDCL9286-97-96 06:27:00 Test Item Value Reference Range Interpretation Comments Eosinophils (test code = 5.2 See_Comment [A utomated message] The Eosinophils) system which ge nerated this result tra nsmitted reference range : <=4.0. The reference r christiano was not used to int erpret this result as normal/abnormal . [facility] HospitalLznrpiiSRWHKWZERD7308-55-18 06:27:00 Test Item Value Reference Range Interpretation Comments Basophils (test code = 1.2 See_Comment [Aut omated message] The Basophils) system which ge nerated this result tra nsmitted reference range : <=1.0. The reference r christiano was not used to int erpret this result as normal/abnormal . [facility] HospitalGjxrenzLZWBRWCDCA9246-14-39 06:27:00 Test Item Value Reference Range Interpretation Comments Neutrophils # (test code = Neutrophils 3.5 1.5-8.1 #) [facility] HospitalFqwnpuyFMWFAAFFLE0655-12-87 06:27:00 Test Item Value Reference Range Interpretation Comments Lymphocytes # (test code = Lymphocytes 1.4 1.0-5.5 #) [facility] HospitalUuozhlqSJDWEIQDDZ2439-57-19 06:27:00 Test Item Value Reference Range Interpretation Comments Monocytes # (test code 0.6 See_Comment [Aut omated message] The = Monocytes #) system which generated this result tra nsmitted reference range : <=0.8. The reference r christiano was not used to int erpret this result as normal/abnormal . [facility] HospitalQcnsonhZYHINKZOVY3466-31-50 06:27:00 Test Item Value Reference Range Interpretation Comments Eosinophils # (test code 0.3 See_Comment [A utomated message] The = Eosinophils #) system whic h generated this result tra nsmitted reference range : <=0.5. The reference r christiano was not used to int erpret this result as normal/abnormal . [facility] HospitalFkjaviqMQZVYMYFWV6077-53-43 06:27:00 Test Item Value Reference Range Interpretation Comments Basophils # (test code 0.1 See_Comment [Aut omated message] The = Basophils #) system which generated this result tra nsmitted reference range : <=0.2. The reference r christiano was not used to int erpret this result as normal/abnormal . [place] [address]-02-27 06:27:00 Test Item Value Reference Range Interpretation Comments ACT (TEG) Rapid (test code = ACT (TEG) 121 s 86-118 Rapid) [place] [address]-02-27 06:27:00 Test Item Value Reference Range Interpretation Comments Split Point Rapid (test code = Split 0.6 min Point Rapid) [place] [address]-02-27 06:27:00 Test Item Value Reference Range Interpretation Comments R-time Rapid (test code = R-time 0.8 min 0.4-0.7 Rapid) [place] [address]-02-27 06:27:00 Test Item Value Reference Range Interpretation Comments K-time Rapid (test code = K-time 0.8 min 0.6-2.3 Rapid) [place] [address]-02-27 06:27:00 Test Item Value Reference Range Interpretation Comments Angle Rapid (test code = Angle 79 degrees 64-80 Rapid) [place] [address]-02-27 06:27:00 Test Item Value Reference Range Interpretation Comments Max Amplitude Rapid (test code = Max 71 mm 52-71 Amplitude Rapid) [place] [address]-02-27 06:27:00 Test Item Value Reference Range Interpretation Comments G-value Rapid (test code = G-value 12.1 5.0-11.6 Rapid) [facility] HospitalHibomtkFMZYGDMDZE1235-46-03 06:27:00 Test Item Value Reference Range Interpretation Comments Estimated % Lysis Rapid 0.0 See_Comment [Au tomated message] The (test code = Estimated syste m which generated % Lysis Rapid) this result t ransmitted reference range : <=7.5. The reference r christiano was not used to int erpret this result as normal/abnormal . [facility] HospitalKavtvhxELIUXRZCUH7928-94-97 06:27:00 Test Item Value Reference Range Interpretation Comments RBC Morph (test code = Normal (11/27/22 12:27 RBC Morph) AM) [facility] HospitalXymgjfrJAWAXPHVGV8811-06-09 06:27:00 Test Item Value Reference Range Interpretation Comments Plt Morph (test code = Normal (11/27/22 12:27 Plt Morph) AM) [facility] HospitalUijcyypBZSGDENMVD6536-71-11 06:27:00 Test Item Value Reference Range Interpretation Comments Basophils # (test code 0.1 See_Comment [Aut omated message] The = Basophils #) system which generated this result tra nsmitted reference range : <=0.2. The reference r christiano was not used to int erpret this result as normal/abnormal . [facility]NklpibuLNWQBRYAP7367-72-32 13:17:00 Test Item Value Reference Range Interpretation Comments Glucose Lvl (test code = Glucose Lvl) 65 70-99 [facility]iscoUbwolbwMESPJGDYM6384-71-82 13:17:00 Test Item Value Reference Range Interpretation Comments BUN (test code = BUN) 39 7-22 [facility]iscoYvgbasdNOWHPMWZQ2079-16-76 13:17:00 Test Item Value Reference Range Interpretation Comments Creatinine Lvl (test code = Creatinine 2.03 0.50-1.40 Lvl) [facility]iscoAifogemQQKZLGVES3401-33-77 13:17:00 Test Item Value Reference Range Interpretation Comments Sodium Lvl (test code = Sodium Lvl) 139 135-145 [facility]iscoHbnnrflSDUPLMZFT8118-96-61 13:17:00 Test Item Value Reference Range Interpretation Comments Potassium Lvl (test code = Potassium 4.7 3.5-5.1 Lvl) [facility]iscoFgmuizrGWDONUTSU4161-05-74 13:17:00 Test Item Value Reference Range Interpretation Comments Chloride Lvl (test code = Chloride Lvl) 107 95-109 [place] 711343-02-22 13:17:00 Test Item Value Reference Range Interpretation Comments CO2 (test code = CO2) 26 24-32 [place] 711343-02-22 13:17:00 Test Item Value Reference Range Interpretation Comments Calcium Lvl (test code = Calcium Lvl) 8.1 8.5-10.5 [facility]iscoTyxvgpgLQQCIRXRK1838-76-83 13:17:00 Test Item Value Reference Range Interpretation Comments AGAP (test code = AGAP) 10.7 10.0-20.0 [facility]iscoGteedadCUIPUCEUZ8910-99-47 13:17:00 Test Item Value Reference Range Interpretation Comments eGFR (test code = eGFR) 24 [facility]iscoEgwqcesAIPRFPYYA6561-17-75 13:17:00 Test Item Value Reference Range Interpretation Comments Ca Ion WB (test code = Ca Ion WB) 1.06 1.05-1.25 [facility]iscoRwjzbqsBWDIUKRWP0668-48-64 13:17:00 Test Item Value Reference Range Interpretation Comments Ca Ion at pH 7.4 WB (test code = Ca Ion 1.03 1.05-1.25 at pH 7.4 WB) [facility]iscoZxnfepsNDFHXDIYI1094-71-38 13:17:00 Test Item Value Reference Range Interpretation Comments Magnesium Lvl (test code = Magnesium 2.7 1.8-2.4 Lvl) [facility]iscoObefelyIEACMKSSA5592-03-84 13:17:00 Test Item Value Reference Range Interpretation Comments Phosphorus (test code = Phosphorus) 3.9 2.5-4.5 [facility] HospitalDsgfvqeYOZISKWJWA6584-43-83 13:17:00 Test Item Value Reference Range Interpretation Comments Segs (test code = Segs) 54.4 45.0-75.0 [facility] HospitalSpmonzlADIHBISOFP6225-94-48 13:17:00 Test Item Value Reference Range Interpretation Comments Lymphocytes (test code = Lymphocytes) 29.3 20.0-40.0 [place] 633383-02-22 13:17:00 Test Item Value Reference Range Interpretation Comments Monocytes (test code = Monocytes) 10.5 2.0-12.0 [place] 633383-02-22 13:17:00 Test Item Value Reference Range Interpretation Comments Eosinophils (test code = 5.0 See_Comment [A utomated message] The Eosinophils) system which ge nerated this result tra nsmitted reference range : <=4.0. The reference r christiano was not used to int erpret this result as normal/abnormal . [facility] HospitalYjoblgwTBMSJAPKTW4128-34-31 13:17:00 Test Item Value Reference Range Interpretation Comments Basophils (test code = 0.8 See_Comment [Aut omated message] The Basophils) system which ge nerated this result tra nsmitted reference range : <=1.0. The reference r christiano was not used to int erpret this result as normal/abnormal . [place] 633383-02-22 13:17:00 Test Item Value Reference Range Interpretation Comments Neutrophils # (test code = Neutrophils 4.1 1.5-8.1 #) [place] 633383-02-22 13:17:00 Test Item Value Reference Range Interpretation Comments Lymphocytes # (test code = Lymphocytes 2.2 1.0-5.5 #) [facility] HospitalGummivbMXEIELIUQR8265-24-04 13:17:00 Test Item Value Reference Range Interpretation Comments Monocytes # (test code 0.8 See_Comment [Aut omated message] The = Monocytes #) system which generated this result tra nsmitted reference range : <=0.8. The reference r christiano was not used to int erpret this result as normal/abnormal . [facility] HospitalDggnvdlRPTSPJBKQN4420-55-40 13:17:00 Test Item Value Reference Range Interpretation Comments Eosinophils # (test code 0.4 See_Comment [A utomated message] The = Eosinophils #) system whic h generated this result tra nsmitted reference range : <=0.5. The reference r christiano was not used to int erpret this result as normal/abnormal . [facility] HospitalRdcondqFZURKUBISP8229-18-98 13:17:00 Test Item Value Reference Range Interpretation Comments Basophils # (test code 0.1 See_Comment [Aut omated message] The = Basophils #) system which generated this result tra nsmitted reference range : <=0.2. The reference r christiano was not used to int erpret this result as normal/abnormal . [place] 633383-02-22 13:17:00 Test Item Value Reference Range Interpretation Comments WBC (test code = WBC) 7.5 3.7-10.4 [place] 633383-02-22 13:17:00 Test Item Value Reference Range Interpretation Comments RBC (test code = RBC) 3.30 4.20-5.40 [facility] HospitalFrsuceqXOUHVYBCCW5785-65-04 13:17:00 Test Item Value Reference Range Interpretation Comments Hgb (test code = Hgb) 9.9 12.0-16.0 [facility] HospitalThjrgfiXTDDYKITCI5608-32-83 13:17:00 Test Item Value Reference Range Interpretation Comments Hct (test code = Hct) 30.3 36.0-48.0 [facility] HospitalOhzcfdzLNGBRIEYCA2703-42-68 13:17:00 Test Item Value Reference Range Interpretation Comments MCV (test code = MCV) 91.8 80.0-98.0 [facility] HospitalJykmmvyBKIRIRNQYW2759-57-77 13:17:00 Test Item Value Reference Range Interpretation Comments MCH (test code = MCH) 30.0 pg 27.0-31.0 [facility] HospitalTprnktjFEQHECXGCC6810-57-99 13:17:00 Test Item Value Reference Range Interpretation Comments MCHC (test code = MCHC) 32.7 32.0-36.0 [facility] HospitalChxjnjuCEPEUJRNIW9801-03-91 13:17:00 Test Item Value Reference Range Interpretation Comments RDW (test code = RDW) 14.4 11.5-14.5 [facility] HospitalKamuzloMEIMKWTFMH1987-39-43 13:17:00 Test Item Value Reference Range Interpretation Comments Platelet (test code = Platelet) 136 133-450 [facility] HospitalLndbvymUZNZVGPRFT2380-21-12 13:17:00 Test Item Value Reference Range Interpretation Comments MPV (test code = MPV) 8.7 7.4-10.4 [facility]PsauhpnJYFQVLREK0504-52-07 13:17:00 Test Item Value Reference Range Interpretation Comments Glucose Lvl (test code = Glucose Lvl) 65 70-99 [facility]iscoDiebkxuPQYROICFH9881-00-71 13:17:00 Test Item Value Reference Range Interpretation Comments BUN (test code = BUN) 39 7-22 [facility]iscoUclclauYROBAOUYU4737-95-33 13:17:00 Test Item Value Reference Range Interpretation Comments Creatinine Lvl (test code = Creatinine 2.03 0.50-1.40 Lvl) [facility]iscoVsbgoabUHDMMSAAG0188-59-18 13:17:00 Test Item Value Reference Range Interpretation Comments Sodium Lvl (test code = Sodium Lvl) 139 135-145 [facility]iscoXkncvguHBHQKMRCF7015-45-46 13:17:00 Test Item Value Reference Range Interpretation Comments Potassium Lvl (test code = Potassium 4.7 3.5-5.1 Lvl) [facility]iscoCpsdaaxUGWUQSOKO3507-94-07 13:17:00 Test Item Value Reference Range Interpretation Comments Chloride Lvl (test code = Chloride Lvl) 107 95-109 [place] 711343-02-22 13:17:00 Test Item Value Reference Range Interpretation Comments CO2 (test code = CO2) 26 24-32 [place] 711343-02-22 13:17:00 Test Item Value Reference Range Interpretation Comments Calcium Lvl (test code = Calcium Lvl) 8.1 8.5-10.5 [facility]IB[facility]14[facility]37 13:17:00 Test Item Value Reference Range Interpretation Comments AGAP (test code = AGAP) 10.7 10.0-20.0 [facility]FkbucdyBIHRYMOKD0754-31-05 13:17:00 Test Item Value Reference Range Interpretation Comments eGFR (test code = eGFR) 24 [facility]CrisnrcHQQDSIKMN3676-19-07 13:17:00 Test Item Value Reference Range Interpretation Comments Ca Ion WB (test code = Ca Ion WB) 1.06 1.05-1.25 [facility]NdcbbfbDXSETQGMP2209-23-87 13:17:00 Test Item Value Reference Range Interpretation Comments Ca Ion at pH 7.4 WB (test code = Ca Ion 1.03 1.05-1.25 at pH 7.4 WB) [facility]ObkqewnHJOBYKJVD7579-30-97 13:17:00 Test Item Value Reference Range Interpretation Comments Magnesium Lvl (test code = Magnesium 2.7 1.8-2.4 Lvl) [facility]EqcawzmJMEZTRRUV0366-00-88 13:17:00 Test Item Value Reference Range Interpretation Comments Phosphorus (test code = Phosphorus) 3.9 2.5-4.5 [place] 633383-02-22 13:17:00 Test Item Value Reference Range Interpretation Comments Segs (test code = Segs) 54.4 45.0-75.0 [place] 633383-02-22 13:17:00 Test Item Value Reference Range Interpretation Comments Lymphocytes (test code = Lymphocytes) 29.3 20.0-40.0 [place] [address]-02-22 13:17:00 Test Item Value Reference Range Interpretation Comments Monocytes (test code = Monocytes) 10.5 2.0-12.0 [place] [address]-02-22 13:17:00 Test Item Value Reference Range Interpretation Comments Eosinophils (test code = 5.0 See_Comment [A utomated message] The Eosinophils) system which ge nerated this result tra nsmitted reference range : <=4.0. The reference r christiano was not used to int erpret this result as normal/abnormal . [place] [address]-02-22 13:17:00 Test Item Value Reference Range Interpretation Comments Basophils (test code = 0.8 See_Comment [Aut omated message] The Basophils) system which ge nerated this result tra nsmitted reference range : <=1.0. The reference r christiano was not used to int erpret this result as normal/abnormal . [place] [address]-02-22 13:17:00 Test Item Value Reference Range Interpretation Comments Neutrophils # (test code = Neutrophils 4.1 1.5-8.1 #) [place] [address]-02-22 13:17:00 Test Item Value Reference Range Interpretation Comments Lymphocytes # (test code = Lymphocytes 2.2 1.0-5.5 #) [place] [address]-02-22 13:17:00 Test Item Value Reference Range Interpretation Comments Monocytes # (test code 0.8 See_Comment [Aut omated message] The = Monocytes #) system which generated this result tra nsmitted reference range : <=0.8. The reference r christiano was not used to int erpret this result as normal/abnormal . [place] [address]-02-22 13:17:00 Test Item Value Reference Range Interpretation Comments Eosinophils # (test code 0.4 See_Comment [A utomated message] The = Eosinophils #) system whic h generated this result tra nsmitted reference range : <=0.5. The reference r christiano was not used to int erpret this result as normal/abnormal . [place] [address]-02-22 13:17:00 Test Item Value Reference Range Interpretation Comments Basophils # (test code 0.1 See_Comment [Aut omated message] The = Basophils #) system which generated this result tra nsmitted reference range : <=0.2. The reference r christiano was not used to int erpret this result as normal/abnormal . [place] 633383-02-22 13:17:00 Test Item Value Reference Range Interpretation Comments WBC (test code = WBC) 7.5 3.7-10.4 [place] 633383-02-22 13:17:00 Test Item Value Reference Range Interpretation Comments RBC (test code = RBC) 3.30 4.20-5.40 [place] 633383-02-22 13:17:00 Test Item Value Reference Range Interpretation Comments Hgb (test code = Hgb) 9.9 12.0-16.0 [place] 633383-02-22 13:17:00 Test Item Value Reference Range Interpretation Comments Hct (test code = Hct) 30.3 36.0-48.0 [place] 633383-02-22 13:17:00 Test Item Value Reference Range Interpretation Comments MCV (test code = MCV) 91.8 80.0-98.0 [place] 633383-02-22 13:17:00 Test Item Value Reference Range Interpretation Comments MCH (test code = MCH) 30.0 pg 27.0-31.0 [facility]CydwwiiSVPQQVBUPI4293-50-38 13:17:00 Test Item Value Reference Range Interpretation Comments MCHC (test code = MCHC) 32.7 32.0-36.0 [facility] HospitalCkuskoqUJQYJCJZWP5514-21-29 13:17:00 Test Item Value Reference Range Interpretation Comments RDW (test code = RDW) 14.4 11.5-14.5 [place] 633383-02-22 13:17:00 Test Item Value Reference Range Interpretation Comments Platelet (test code = Platelet) 136 133-450 [facility] HospitalGykutzcUZGCGHBCEV9974-33-61 13:17:00 Test Item Value Reference Range Interpretation Comments MPV (test code = MPV) 8.7 7.4-10.4 [facility]2023-02-22 13:17:00 Test Item Value Reference Range Interpretation Comments Glucose Lvl (test code = Glucose Lvl) 65 70-99 [facility]2023-02-22 13:17:00 Test Item Value Reference Range Interpretation Comments BUN (test code = BUN) 39 7-22 [place] 454363-02-22 13:17:00 Test Item Value Reference Range Interpretation Comments Creatinine Lvl (test code = Creatinine 2.03 0.50-1.40 Lvl) [place] 454363-02-22 13:17:00 Test Item Value Reference Range Interpretation Comments Sodium Lvl (test code = Sodium Lvl) 139 135-145 [place] 454363-02-22 13:17:00 Test Item Value Reference Range Interpretation Comments Potassium Lvl (test code = Potassium 4.7 3.5-5.1 Lvl) [place] 454363-02-22 13:17:00 Test Item Value Reference Range Interpretation Comments Chloride Lvl (test code = Chloride Lvl) 107 95-109 [place] 454363-02-22 13:17:00 Test Item Value Reference Range Interpretation Comments CO2 (test code = CO2) 26 24-32 [place] 454363-02-22 13:17:00 Test Item Value Reference Range Interpretation Comments Calcium Lvl (test code = Calcium Lvl) 8.1 8.5-10.5 [place] 454363-02-22 13:17:00 Test Item Value Reference Range Interpretation Comments AGAP (test code = AGAP) 10.7 10.0-20.0 [place] 454363-02-22 13:17:00 Test Item Value Reference Range Interpretation Comments eGFR (test code = eGFR) 24 [place] 454363-02-22 13:17:00 Test Item Value Reference Range Interpretation Comments Magnesium Lvl (test code = Magnesium 2.7 1.8-2.4 Lvl) [facility]2023-02-22 13:17:00 Test Item Value Reference Range Interpretation Comments Phosphorus (test code = Phosphorus) 3.9 2.5-4.5 [place] 711343-02-22 13:17:00 Test Item Value Reference Range Interpretation Comments Glucose Lvl (test code = Glucose Lvl) 65 70-99 [place] 711343-02-22 13:17:00 Test Item Value Reference Range Interpretation Comments BUN (test code = BUN) 39 7-22 [place] 711343-02-22 13:17:00 Test Item Value Reference Range Interpretation Comments Creatinine Lvl (test code = Creatinine 2.03 0.50-1.40 Lvl) [facility]lbxokqORVJUBKGX4788-23-99 13:17:00 Test Item Value Reference Range Interpretation Comments Sodium Lvl (test code = Sodium Lvl) 139 135-145 [place] 711343-02-22 13:17:00 Test Item Value Reference Range Interpretation Comments Potassium Lvl (test code = Potassium 4.7 3.5-5.1 Lvl) [facility]PncoiqeKTQHFZFAG7328-59-05 13:17:00 Test Item Value Reference Range Interpretation Comments Chloride Lvl (test code = Chloride Lvl) 107 95-109 [place] 711343-02-22 13:17:00 Test Item Value Reference Range Interpretation Comments CO2 (test code = CO2) 26 24-32 [facility]iscoJpwimukXIIWHSLVF6994-89-89 13:17:00 Test Item Value Reference Range Interpretation Comments Calcium Lvl (test code = Calcium Lvl) 8.1 8.5-10.5 [facility]DdcmkgxMWVXVIFFP7131-03-20 13:17:00 Test Item Value Reference Range Interpretation Comments AGAP (test code = AGAP) 10.7 10.0-20.0 [facility]iscoGkukbrsGKZICMFQD7147-54-25 13:17:00 Test Item Value Reference Range Interpretation Comments eGFR (test code = eGFR) 24 [facility]iscoDpawpytVYXVSPULM6798-31-84 13:17:00 Test Item Value Reference Range Interpretation Comments Ca Ion WB (test code = Ca Ion WB) 1.06 1.05-1.25 [place] 711343-02-22 13:17:00 Test Item Value Reference Range Interpretation Comments Ca Ion at pH 7.4 WB (test code = Ca Ion 1.03 1.05-1.25 at pH 7.4 WB) [facility]IxdxtlaMJFIPIVEC5659-77-11 13:17:00 Test Item Value Reference Range Interpretation Comments Magnesium Lvl (test code = Magnesium 2.7 1.8-2.4 Lvl) [facility]OaljdefWFZXIWYVW1244-90-21 13:17:00 Test Item Value Reference Range Interpretation Comments Phosphorus (test code = Phosphorus) 3.9 2.5-4.5 [facility] HospitalDqixioyWSPNWHEEDL1469-40-75 13:17:00 Test Item Value Reference Range Interpretation Comments Segs (test code = Segs) 54.4 45.0-75.0 [place] 633383-02-22 13:17:00 Test Item Value Reference Range Interpretation Comments Lymphocytes (test code = Lymphocytes) 29.3 20.0-40.0 [place] 633383-02-22 13:17:00 Test Item Value Reference Range Interpretation Comments Monocytes (test code = Monocytes) 10.5 2.0-12.0 [place] 633383-02-22 13:17:00 Test Item Value Reference Range Interpretation Comments Eosinophils (test code = 5.0 See_Comment [A utomated message] The Eosinophils) system which ge nerated this result tra nsmitted reference range : <=4.0. The reference r christiano was not used to int erpret this result as normal/abnormal . [place] 633383-02-22 13:17:00 Test Item Value Reference Range Interpretation Comments Basophils (test code = 0.8 See_Comment [Aut omated message] The Basophils) system which ge nerated this result tra nsmitted reference range : <=1.0. The reference r christiano was not used to int erpret this result as normal/abnormal . [place] 633383-02-22 13:17:00 Test Item Value Reference Range Interpretation Comments Neutrophils # (test code = Neutrophils 4.1 1.5-8.1 #) [place] 633383-02-22 13:17:00 Test Item Value Reference Range Interpretation Comments Lymphocytes # (test code = Lymphocytes 2.2 1.0-5.5 #) [place] [address]383-02-22 13:17:00 Test Item Value Reference Range Interpretation Comments Monocytes # (test code 0.8 See_Comment [Aut omated message] The = Monocytes #) system which generated this result tra nsmitted reference range : <=0.8. The reference r christiano was not used to int erpret this result as normal/abnormal . [place] 633383-02-22 13:17:00 Test Item Value Reference Range Interpretation Comments Eosinophils # (test code 0.4 See_Comment [A utomated message] The = Eosinophils #) system ic h generated this result tra nsmitted reference range : <=0.5. The reference r christiano was not used to int erpret this result as normal/abnormal . [facility] HospitalZteiftmAWBXJNMBSD5771-16-85 13:17:00 Test Item Value Reference Range Interpretation Comments Basophils # (test code 0.1 See_Comment [Aut omated message] The = Basophils #) system which generated this result tra nsmitted reference range : <=0.2. The reference r christiano was not used to int erpret this result as normal/abnormal . [facility] HospitalVcnmmvxQULDHSKSYL5480-43-44 13:17:00 Test Item Value Reference Range Interpretation Comments WBC (test code = WBC) 7.5 3.7-10.4 [facility] HospitalZqlchvrMZEHXZNGIC3716-95-02 13:17:00 Test Item Value Reference Range Interpretation Comments RBC (test code = RBC) 3.30 4.20-5.40 [facility] HospitalBralxhvUMOBICRYOZ7628-85-60 13:17:00 Test Item Value Reference Range Interpretation Comments Hgb (test code = Hgb) 9.9 12.0-16.0 [facility] HospitalDyvzmsiDTDEZPXNDR5894-64-27 13:17:00 Test Item Value Reference Range Interpretation Comments Hct (test code = Hct) 30.3 36.0-48.0 [facility] HospitalAzwhsftGSSLLNCEKN2878-55-68 13:17:00 Test Item Value Reference Range Interpretation Comments MCV (test code = MCV) 91.8 80.0-98.0 [facility] HospitalUxgupjnUCNBNHPJBB7040-39-20 13:17:00 Test Item Value Reference Range Interpretation Comments MCH (test code = MCH) 30.0 pg 27.0-31.0 [facility] HospitalMggamzeTBYVTBGORO9162-25-69 13:17:00 Test Item Value Reference Range Interpretation Comments MCHC (test code = MCHC) 32.7 32.0-36.0 [facility] HospitalNlaydyrWHQKCJTXHA0764-56-80 13:17:00 Test Item Value Reference Range Interpretation Comments RDW (test code = RDW) 14.4 11.5-14.5 [facility] HospitalAxqyikvLRFDAEGWQM9625-96-99 13:17:00 Test Item Value Reference Range Interpretation Comments Platelet (test code = Platelet) 136 133-450 [facility] HospitalBmdicunGRKINKHLZW8563-80-04 13:17:00 Test Item Value Reference Range Interpretation Comments MPV (test code = MPV) 8.7 7.4-10.4 [place] 633383-02-22 13:17:00 Test Item Value Reference Range Interpretation Comments Segs (test code = Segs) 54.4 45.0-75.0 [place] 633383-02-22 13:17:00 Test Item Value Reference Range Interpretation Comments Lymphocytes (test code = Lymphocytes) 29.3 20.0-40.0 [place] 633383-02-22 13:17:00 Test Item Value Reference Range Interpretation Comments Monocytes (test code = Monocytes) 10.5 2.0-12.0 [place] 633383-02-22 13:17:00 Test Item Value Reference Range Interpretation Comments Eosinophils (test code = 5.0 See_Comment [A utomated message] The Eosinophils) system which ge nerated this result tra nsmitted reference range : <=4.0. The reference r christiano was not used to int erpret this result as normal/abnormal . [place] 633383-02-22 13:17:00 Test Item Value Reference Range Interpretation Comments Basophils (test code = 0.8 See_Comment [Aut omated message] The Basophils) system which ge nerated this result tra nsmitted reference range : <=1.0. The reference r christiano was not used to int erpret this result as normal/abnormal . [facility] HospitalFrilsvgCGQPPPEMBP2873-09-51 13:17:00 Test Item Value Reference Range Interpretation Comments Neutrophils # (test code = Neutrophils 4.1 1.5-8.1 #) [place] [address]383-02-22 13:17:00 Test Item Value Reference Range Interpretation Comments Lymphocytes # (test code = Lymphocytes 2.2 1.0-5.5 #) [place] [address]383-02-22 13:17:00 Test Item Value Reference Range Interpretation Comments Monocytes # (test code 0.8 See_Comment [Aut omated message] The = Monocytes #) system which generated this result tra nsmitted reference range : <=0.8. The reference r christiano was not used to int erpret this result as normal/abnormal . [place] 633383-02-22 13:17:00 Test Item Value Reference Range Interpretation Comments Eosinophils # (test code 0.4 See_Comment [A utomated message] The = Eosinophils #) system whic h generated this result tra nsmitted reference range : <=0.5. The reference r christiano was not used to int erpret this result as normal/abnormal . [facility] HospitalLoimxhzHICUKPDJIA3329-92-23 13:17:00 Test Item Value Reference Range Interpretation Comments Basophils # (test code 0.1 See_Comment [Aut omated message] The = Basophils #) system which generated this result tra nsmitted reference range : <=0.2. The reference r christiano was not used to int erpret this result as normal/abnormal . [place] 633383-02-22 13:17:00 Test Item Value Reference Range Interpretation Comments WBC (test code = WBC) 7.5 3.7-10.4 [place] 633383-02-22 13:17:00 Test Item Value Reference Range Interpretation Comments RBC (test code = RBC) 3.30 4.20-5.40 [place] 633383-02-22 13:17:00 Test Item Value Reference Range Interpretation Comments Hgb (test code = Hgb) 9.9 12.0-16.0 [place] 633383-02-22 13:17:00 Test Item Value Reference Range Interpretation Comments Hct (test code = Hct) 30.3 36.0-48.0 [place] 633383-02-22 13:17:00 Test Item Value Reference Range Interpretation Comments MCV (test code = MCV) 91.8 80.0-98.0 [place] 633383-02-22 13:17:00 Test Item Value Reference Range Interpretation Comments MCH (test code = MCH) 30.0 pg 27.0-31.0 [place] 633383-02-22 13:17:00 Test Item Value Reference Range Interpretation Comments MCHC (test code = MCHC) 32.7 32.0-36.0 [place] [address]-02-22 13:17:00 Test Item Value Reference Range Interpretation Comments RDW (test code = RDW) 14.4 11.5-14.5 [place] 633383-02-22 13:17:00 Test Item Value Reference Range Interpretation Comments Platelet (test code = Platelet) 136 133-450 [place] 633383-02-22 13:17:00 Test Item Value Reference Range Interpretation Comments MPV (test code = MPV) 8.7 7.4-10.4 [place] 010063-02-22 13:17:00 Test Item Value Reference Range Interpretation Comments Ca Ion WB (test code = Ca Ion WB) 1.06 1.05-1.25 [place] 010063-02-22 13:17:00 Test Item Value Reference Range Interpretation Comments Ca Ion at pH 7.4 WB (test code = Ca Ion 1.03 1.05-1.25 at pH 7.4 WB) [facility]2023-02-22 13:17:00 Test Item Value Reference Range Interpretation Comments Glucose Lvl (test code = Glucose Lvl) 65 70-99 [place] 454363-02-22 13:17:00 Test Item Value Reference Range Interpretation Comments BUN (test code = BUN) 39 7-22 [place] 454363-02-22 13:17:00 Test Item Value Reference Range Interpretation Comments Creatinine Lvl (test code = Creatinine 2.03 0.50-1.40 Lvl) [facility]2023-02-22 13:17:00 Test Item Value Reference Range Interpretation Comments Sodium Lvl (test code = Sodium Lvl) 139 135-145 [place] 454363-02-22 13:17:00 Test Item Value Reference Range Interpretation Comments Potassium Lvl (test code = Potassium 4.7 3.5-5.1 Lvl) [place] 454363-02-22 13:17:00 Test Item Value Reference Range Interpretation Comments Chloride Lvl (test code = Chloride Lvl) 107 95-109 [place] 454363-02-22 13:17:00 Test Item Value Reference Range Interpretation Comments CO2 (test code = CO2) 26 24-32 [place] 454363-02-22 13:17:00 Test Item Value Reference Range Interpretation Comments Calcium Lvl (test code = Calcium Lvl) 8.1 8.5-10.5 [place] 454363-02-22 13:17:00 Test Item Value Reference Range Interpretation Comments AGAP (test code = AGAP) 10.7 10.0-20.0 [place] 454363-02-22 13:17:00 Test Item Value Reference Range Interpretation Comments eGFR (test code = eGFR) 24 [place] 454363-02-22 13:17:00 Test Item Value Reference Range Interpretation Comments Magnesium Lvl (test code = Magnesium 2.7 1.8-2.4 Lvl) [facility]2023-02-22 13:17:00 Test Item Value Reference Range Interpretation Comments Phosphorus (test code = Phosphorus) 3.9 2.5-4.5 [place] 711343-02-22 13:17:00 Test Item Value Reference Range Interpretation Comments Glucose Lvl (test code = Glucose Lvl) 65 70-99 [place] [address]-02-22 13:17:00 Test Item Value Reference Range Interpretation Comments BUN (test code = BUN) 39 7-22 [place] 711343-02-22 13:17:00 Test Item Value Reference Range Interpretation Comments Creatinine Lvl (test code = Creatinine 2.03 0.50-1.40 Lvl) [facility]dWZET[facility]OQFR0778-[facility]-42 13:17:00 Test Item Value Reference Range Interpretation Comments Sodium Lvl (test code = Sodium Lvl) 139 135-145 [facility]OtljnrqMCIRVIREX7192-68-81 13:17:00 Test Item Value Reference Range Interpretation Comments Potassium Lvl (test code = Potassium 4.7 3.5-5.1 Lvl) [facility]iscoGlvrxmvVDKQQVTPM1469-70-81 13:17:00 Test Item Value Reference Range Interpretation Comments Chloride Lvl (test code = Chloride Lvl) 107 95-109 [place] 711343-02-22 13:17:00 Test Item Value Reference Range Interpretation Comments CO2 (test code = CO2) 26 24-32 [place] 711343-02-22 13:17:00 Test Item Value Reference Range Interpretation Comments Calcium Lvl (test code = Calcium Lvl) 8.1 8.5-10.5 [place] 711343-02-22 13:17:00 Test Item Value Reference Range Interpretation Comments AGAP (test code = AGAP) 10.7 10.0-20.0 [place] 711343-02-22 13:17:00 Test Item Value Reference Range Interpretation Comments eGFR (test code = eGFR) 24 [place] 711343-02-22 13:17:00 Test Item Value Reference Range Interpretation Comments Ca Ion WB (test code = Ca Ion WB) 1.06 1.05-1.25 [place] 711343-02-22 13:17:00 Test Item Value Reference Range Interpretation Comments Ca Ion at pH 7.4 WB (test code = Ca Ion 1.03 1.05-1.25 at pH 7.4 WB) [facility]UalxectCALYSDUEJ2671-24-94 13:17:00 Test Item Value Reference Range Interpretation Comments Magnesium Lvl (test code = Magnesium 2.7 1.8-2.4 Lvl) [facility]dpqmmkCLEIKDLQB2203-36-89 13:17:00 Test Item Value Reference Range Interpretation Comments Phosphorus (test code = Phosphorus) 3.9 2.5-4.5 [place] 633383-02-22 13:17:00 Test Item Value Reference Range Interpretation Comments Segs (test code = Segs) 54.4 45.0-75.0 [place] 633383-02-22 13:17:00 Test Item Value Reference Range Interpretation Comments Lymphocytes (test code = Lymphocytes) 29.3 20.0-40.0 [place] 633383-02-22 13:17:00 Test Item Value Reference Range Interpretation Comments Monocytes (test code = Monocytes) 10.5 2.0-12.0 [place] 633383-02-22 13:17:00 Test Item Value Reference Range Interpretation Comments Eosinophils (test code = 5.0 See_Comment [A utomated message] The Eosinophils) system which ge nerated this result tra nsmitted reference range : <=4.0. The reference r christiano was not used to int erpret this result as normal/abnormal . [facility] HospitalUjarteaRJQRFWYXQY1223-32-74 13:17:00 Test Item Value Reference Range Interpretation Comments Basophils (test code = 0.8 See_Comment [Aut omated message] The Basophils) system which ge nerated this result tra nsmitted reference range : <=1.0. The reference r christiano was not used to int erpret this result as normal/abnormal . [place] 633383-02-22 13:17:00 Test Item Value Reference Range Interpretation Comments Neutrophils # (test code = Neutrophils 4.1 1.5-8.1 #) [place] 633383-02-22 13:17:00 Test Item Value Reference Range Interpretation Comments Lymphocytes # (test code = Lymphocytes 2.2 1.0-5.5 #) [place] 633383-02-22 13:17:00 Test Item Value Reference Range Interpretation Comments Monocytes # (test code 0.8 See_Comment [Aut omated message] The = Monocytes #) system which generated this result tra nsmitted reference range : <=0.8. The reference r christiano was not used to int erpret this result as normal/abnormal . [place] 633383-02-22 13:17:00 Test Item Value Reference Range Interpretation Comments Eosinophils # (test code 0.4 See_Comment [A utomated message] The = Eosinophils #) system whic h generated this result tra nsmitted reference range : <=0.5. The reference r christiano was not used to int erpret this result as normal/abnormal . [place] 633383-02-22 13:17:00 Test Item Value Reference Range Interpretation Comments Basophils # (test code 0.1 See_Comment [Aut omated message] The = Basophils #) system which generated this result tra nsmitted reference range : <=0.2. The reference r christiano was not used to int erpret this result as normal/abnormal . [place] 633383-02-22 13:17:00 Test Item Value Reference Range Interpretation Comments WBC (test code = WBC) 7.5 3.7-10.4 [place] [address]-02-22 13:17:00 Test Item Value Reference Range Interpretation Comments RBC (test code = RBC) 3.30 4.20-5.40 [place] [address]-02-22 13:17:00 Test Item Value Reference Range Interpretation Comments Hgb (test code = Hgb) 9.9 12.0-16.0 [place] [address]-02-22 13:17:00 Test Item Value Reference Range Interpretation Comments Hct (test code = Hct) 30.3 36.0-48.0 [place] [address]-02-22 13:17:00 Test Item Value Reference Range Interpretation Comments MCV (test code = MCV) 91.8 80.0-98.0 [place] [address]-02-22 13:17:00 Test Item Value Reference Range Interpretation Comments MCH (test code = MCH) 30.0 pg 27.0-31.0 [place] 633383-02-22 13:17:00 Test Item Value Reference Range Interpretation Comments MCHC (test code = MCHC) 32.7 32.0-36.0 [facility] HospitalKsgdtgiIYNTMQJZSN0344-31-27 13:17:00 Test Item Value Reference Range Interpretation Comments RDW (test code = RDW) 14.4 11.5-14.5 [facility] HospitalWmtuqvuMQAGCDFEWG8946-23-18 13:17:00 Test Item Value Reference Range Interpretation Comments Platelet (test code = Platelet) 136 133-450 [facility] HospitalWzlxeapNEZOQKZOUB4040-21-01 13:17:00 Test Item Value Reference Range Interpretation Comments MPV (test code = MPV) 8.7 7.4-10.4 [place] [id number] 13:17:00 Test Item Value Reference Range Interpretation Comments Segs (test code = Segs) 54.4 45.0-75.0 [place] 633383-02-22 13:17:00 Test Item Value Reference Range Interpretation Comments Lymphocytes (test code = Lymphocytes) 29.3 20.0-40.0 [place] 633383-02-22 13:17:00 Test Item Value Reference Range Interpretation Comments Monocytes (test code = Monocytes) 10.5 2.0-12.0 [facility] HospitalZjkojuuPHXVKSNQTV1675-93-82 13:17:00 Test Item Value Reference Range Interpretation Comments Eosinophils (test code = 5.0 See_Comment [A utomated message] The Eosinophils) system which ge nerated this result tra nsmitted reference range : <=4.0. The reference r christiano was not used to int erpret this result as normal/abnormal . [facility] HospitalObtcxowRYTOGSSRRZ9307-46-44 13:17:00 Test Item Value Reference Range Interpretation Comments Basophils (test code = 0.8 See_Comment [Aut omated message] The Basophils) system which ge nerated this result tra nsmitted reference range : <=1.0. The reference r christiano was not used to int erpret this result as normal/abnormal . [place] [address]383-02-22 13:17:00 Test Item Value Reference Range Interpretation Comments Neutrophils # (test code = Neutrophils 4.1 1.5-8.1 #) [place] [address]383-02-22 13:17:00 Test Item Value Reference Range Interpretation Comments Lymphocytes # (test code = Lymphocytes 2.2 1.0-5.5 #) [place] [address]383-02-22 13:17:00 Test Item Value Reference Range Interpretation Comments Monocytes # (test code 0.8 See_Comment [Aut omated message] The = Monocytes #) system which generated this result tra nsmitted reference range : <=0.8. The reference r christiano was not used to int erpret this result as normal/abnormal . [place] [address]383-02-22 13:17:00 Test Item Value Reference Range Interpretation Comments Eosinophils # (test code 0.4 See_Comment [A utomated message] The = Eosinophils #) system whic h generated this result tra nsmitted reference range : <=0.5. The reference r christiano was not used to int erpret this result as normal/abnormal . [place] [address]383-02-22 13:17:00 Test Item Value Reference Range Interpretation Comments Basophils # (test code 0.1 See_Comment [Aut omated message] The = Basophils #) system which generated this result tra nsmitted reference range : <=0.2. The reference r christiano was not used to int erpret this result as normal/abnormal . [place] [address]383-02-22 13:17:00 Test Item Value Reference Range Interpretation Comments WBC (test code = WBC) 7.5 3.7-10.4 [place] [address]383-02-22 13:17:00 Test Item Value Reference Range Interpretation Comments RBC (test code = RBC) 3.30 4.20-5.40 [place] [address]-02-22 13:17:00 Test Item Value Reference Range Interpretation Comments Hgb (test code = Hgb) 9.9 12.0-16.0 [place] [address]-02-22 13:17:00 Test Item Value Reference Range Interpretation Comments Hct (test code = Hct) 30.3 36.0-48.0 [place] [address]-02-22 13:17:00 Test Item Value Reference Range Interpretation Comments MCV (test code = MCV) 91.8 80.0-98.0 [place] [address]-02-22 13:17:00 Test Item Value Reference Range Interpretation Comments MCH (test code = MCH) 30.0 pg 27.0-31.0 [facility] HospitalJlzvobyAGHZICJZMK5363-82-56 13:17:00 Test Item Value Reference Range Interpretation Comments MCHC (test code = MCHC) 32.7 32.0-36.0 [place] [address]383-02-22 13:17:00 Test Item Value Reference Range Interpretation Comments RDW (test code = RDW) 14.4 11.5-14.5 [facility] HospitalAugrangICJTYYYGUO8887-02-87 13:17:00 Test Item Value Reference Range Interpretation Comments Platelet (test code = Platelet) 136 133-450 [facility] HospitalGxxbcdmTSNTLGHTRT6236-78-09 13:17:00 Test Item Value Reference Range Interpretation Comments MPV (test code = MPV) 8.7 7.4-10.4 [facility] ZPBYFJA1607-94-01 13:17:00 Test Item Value Reference Range Interpretation Comments Ca Ion WB (test code = Ca Ion WB) 1.06 1.05-1.25 [facility]2023-02-22 13:17:00 Test Item Value Reference Range Interpretation Comments Ca Ion at pH 7.4 WB (test code = Ca Ion 1.03 1.05-1.25 at pH 7.4 WB) [facility]2023-02-22 13:17:00 Test Item Value Reference Range Interpretation Comments Glucose Lvl (test code = Glucose Lvl) 65 70-99 [facility]2023-02-22 13:17:00 Test Item Value Reference Range Interpretation Comments BUN (test code = BUN) 39 7-22 [facility]2023-02-22 13:17:00 Test Item Value Reference Range Interpretation Comments Creatinine Lvl (test code = Creatinine 2.03 0.50-1.40 Lvl) [facility]2023-02-22 13:17:00 Test Item Value Reference Range Interpretation Comments Sodium Lvl (test code = Sodium Lvl) 139 135-145 [place]363-02-22 13:17:00 Test Item Value Reference Range Interpretation Comments Potassium Lvl (test code = Potassium 4.7 3.5-5.1 Lvl) [facility]2023-02-22 13:17:00 Test Item Value Reference Range Interpretation Comments Chloride Lvl (test code = Chloride Lvl) 107 95-109 [place] 454363-02-22 13:17:00 Test Item Value Reference Range Interpretation Comments CO2 (test code = CO2) 26 24-32 [place] 454363-02-22 13:17:00 Test Item Value Reference Range Interpretation Comments Calcium Lvl (test code = Calcium Lvl) 8.1 8.5-10.5 [place]363-02-22 13:17:00 Test Item Value Reference Range Interpretation Comments AGAP (test code = AGAP) 10.7 10.0-20.0 [place] 454363-02-22 13:17:00 Test Item Value Reference Range Interpretation Comments eGFR (test code = eGFR) 24 [place] 454363-02-22 13:17:00 Test Item Value Reference Range Interpretation Comments Magnesium Lvl (test code = Magnesium 2.7 1.8-2.4 Lvl) [place] 454363-02-22 13:17:00 Test Item Value Reference Range Interpretation Comments Phosphorus (test code = Phosphorus) 3.9 2.5-4.5 [place] 711343-02-22 13:17:00 Test Item Value Reference Range Interpretation Comments Glucose Lvl (test code = Glucose Lvl) 65 70-99 [place] 711343-02-22 13:17:00 Test Item Value Reference Range Interpretation Comments BUN (test code = BUN) 39 7-22 [place] 711343-02-22 13:17:00 Test Item Value Reference Range Interpretation Comments Creatinine Lvl (test code = Creatinine 2.03 0.50-1.40 Lvl) [place] 711343-02-22 13:17:00 Test Item Value Reference Range Interpretation Comments Sodium Lvl (test code = Sodium Lvl) 139 135-145 [place] 711343-02-22 13:17:00 Test Item Value Reference Range Interpretation Comments Potassium Lvl (test code = Potassium 4.7 3.5-5.1 Lvl) [place] 711343-02-22 13:17:00 Test Item Value Reference Range Interpretation Comments Chloride Lvl (test code = Chloride Lvl) 107 95-109 [place] 711343-02-22 13:17:00 Test Item Value Reference Range Interpretation Comments CO2 (test code = CO2) 26 24-32 [place] 711343-02-22 13:17:00 Test Item Value Reference Range Interpretation Comments Calcium Lvl (test code = Calcium Lvl) 8.1 8.5-10.5 [facility]xrhGKGAMVXQF6971-95-69 13:17:00 Test Item Value Reference Range Interpretation Comments AGAP (test code = AGAP) 10.7 10.0-20.0 [facility]iscoCjqmvphVUNRBRNFD2675-33-50 13:17:00 Test Item Value Reference Range Interpretation Comments eGFR (test code = eGFR) 24 [facility]iscoAmwoydaMGVHKZDLU3836-66-17 13:17:00 Test Item Value Reference Range Interpretation Comments Ca Ion WB (test code = Ca Ion WB) 1.06 1.05-1.25 [facility]iscoVsujqarEWOJYWCMD5015-48-84 13:17:00 Test Item Value Reference Range Interpretation Comments Ca Ion at pH 7.4 WB (test code = Ca Ion 1.03 1.05-1.25 at pH 7.4 WB) [facility]iscoAqzjykiJFCETBAAT0498-21-55 13:17:00 Test Item Value Reference Range Interpretation Comments Magnesium Lvl (test code = Magnesium 2.7 1.8-2.4 Lvl) [facility]iscoHfygpdiQSSBUDWQF8500-80-17 13:17:00 Test Item Value Reference Range Interpretation Comments Phosphorus (test code = Phosphorus) 3.9 2.5-4.5 [facility] HospitalTafecktCYEXPKOTMQ4653-75-45 13:17:00 Test Item Value Reference Range Interpretation Comments Segs (test code = Segs) 54.4 45.0-75.0 [facility] HospitalQosemokIQWZZZCOAS6849-81-71 13:17:00 Test Item Value Reference Range Interpretation Comments Lymphocytes (test code = Lymphocytes) 29.3 20.0-40.0 [place] [address]-02-22 13:17:00 Test Item Value Reference Range Interpretation Comments Monocytes (test code = Monocytes) 10.5 2.0-12.0 [place] [address]-02-22 13:17:00 Test Item Value Reference Range Interpretation Comments Eosinophils (test code = 5.0 See_Comment [A utomated message] The Eosinophils) system which ge nerated this result tra nsmitted reference range : <=4.0. The reference r christiano was not used to int erpret this result as normal/abnormal . [facility] HospitalZlgcbecGBQCOPTOTP1455-11-46 13:17:00 Test Item Value Reference Range Interpretation Comments Basophils (test code = 0.8 See_Comment [Aut omated message] The Basophils) system which ge nerated this result tra nsmitted reference range : <=1.0. The reference r christiano was not used to int erpret this result as normal/abnormal . [place] [address]383-02-22 13:17:00 Test Item Value Reference Range Interpretation Comments Neutrophils # (test code = Neutrophils 4.1 1.5-8.1 #) [place] [address]383-02-22 13:17:00 Test Item Value Reference Range Interpretation Comments Lymphocytes # (test code = Lymphocytes 2.2 1.0-5.5 #) [place] [address]383-02-22 13:17:00 Test Item Value Reference Range Interpretation Comments Monocytes # (test code 0.8 See_Comment [Aut omated message] The = Monocytes #) system which generated this result tra nsmitted reference range : <=0.8. The reference r christiano was not used to int erpret this result as normal/abnormal . [place] [address]383-02-22 13:17:00 Test Item Value Reference Range Interpretation Comments Eosinophils # (test code 0.4 See_Comment [A utomated message] The = Eosinophils #) system whic h generated this result tra nsmitted reference range : <=0.5. The reference r christiano was not used to int erpret this result as normal/abnormal . [facility] HospitalDwfxazsFRBYOXJINF2611-26-14 13:17:00 Test Item Value Reference Range Interpretation Comments Basophils # (test code 0.1 See_Comment [Aut omated message] The = Basophils #) system which generated this result tra nsmitted reference range : <=0.2. The reference r christiano was not used to int erpret this result as normal/abnormal . [place] [address]383-02-22 13:17:00 Test Item Value Reference Range Interpretation Comments WBC (test code = WBC) 7.5 3.7-10.4 [place] [address]383-02-22 13:17:00 Test Item Value Reference Range Interpretation Comments RBC (test code = RBC) 3.30 4.20-5.40 [place] [address]383-02-22 13:17:00 Test Item Value Reference Range Interpretation Comments Hgb (test code = Hgb) 9.9 12.0-16.0 [place] [address]-02-22 13:17:00 Test Item Value Reference Range Interpretation Comments Hct (test code = Hct) 30.3 36.0-48.0 [place] [address]383-02-22 13:17:00 Test Item Value Reference Range Interpretation Comments MCV (test code = MCV) 91.8 80.0-98.0 [place] [address]383-02-22 13:17:00 Test Item Value Reference Range Interpretation Comments MCH (test code = MCH) 30.0 pg 27.0-31.0 [place] [address]383-02-22 13:17:00 Test Item Value Reference Range Interpretation Comments MCHC (test code = MCHC) 32.7 32.0-36.0 [place] [address]383-02-22 13:17:00 Test Item Value Reference Range Interpretation Comments RDW (test code = RDW) 14.4 11.5-14.5 [place] [address]383-02-22 13:17:00 Test Item Value Reference Range Interpretation Comments Platelet (test code = Platelet) 136 133-450 [facility] HospitalCkluuulUBNRJFQRUG9718-51-95 13:17:00 Test Item Value Reference Range Interpretation Comments MPV (test code = MPV) 8.7 7.4-10.4 [place] [address]-02-22 13:17:00 Test Item Value Reference Range Interpretation Comments Segs (test code = Segs) 54.4 45.0-75.0 [place] [address]-02-22 13:17:00 Test Item Value Reference Range Interpretation Comments Lymphocytes (test code = Lymphocytes) 29.3 20.0-40.0 [place] [address]-02-22 13:17:00 Test Item Value Reference Range Interpretation Comments Monocytes (test code = Monocytes) 10.5 2.0-12.0 [place] [address]-02-22 13:17:00 Test Item Value Reference Range Interpretation Comments Eosinophils (test code = 5.0 See_Comment [A utomated message] The Eosinophils) system which ge nerated this result tra nsmitted reference range : <=4.0. The reference r christiano was not used to int erpret this result as normal/abnormal . [facility] HospitalXoczacdMUHATMZKJB8888-11-53 13:17:00 Test Item Value Reference Range Interpretation Comments Basophils (test code = 0.8 See_Comment [Aut omated message] The Basophils) system which ge nerated this result tra nsmitted reference range : <=1.0. The reference r christiano was not used to int erpret this result as normal/abnormal . [place] [address]-02-22 13:17:00 Test Item Value Reference Range Interpretation Comments Neutrophils # (test code = Neutrophils 4.1 1.5-8.1 #) [place] [address]383-02-22 13:17:00 Test Item Value Reference Range Interpretation Comments Lymphocytes # (test code = Lymphocytes 2.2 1.0-5.5 #) [place] [address]-02-22 13:17:00 Test Item Value Reference Range Interpretation Comments Monocytes # (test code 0.8 See_Comment [Aut omated message] The = Monocytes #) system which generated this result tra nsmitted reference range : <=0.8. The reference r christiano was not used to int erpret this result as normal/abnormal . [facility] HospitalKtysruhLGKDDOKVCF5441-63-98 13:17:00 Test Item Value Reference Range Interpretation Comments Eosinophils # (test code 0.4 See_Comment [A utomated message] The = Eosinophils #) system wh h generated this result tra nsmitted reference range : <=0.5. The reference r christiano was not used to int erpret this result as normal/abnormal . [place] [address]-02-22 13:17:00 Test Item Value Reference Range Interpretation Comments Basophils # (test code 0.1 See_Comment [Aut omated message] The = Basophils #) system which generated this result tra nsmitted reference range : <=0.2. The reference r christiano was not used to int erpret this result as normal/abnormal . [place] [address]-02-22 13:17:00 Test Item Value Reference Range Interpretation Comments WBC (test code = WBC) 7.5 3.7-10.4 [place] [address]383-02-22 13:17:00 Test Item Value Reference Range Interpretation Comments RBC (test code = RBC) 3.30 4.20-5.40 [facility] HospitalAqkukcoQDNRWWORRI4835-30-60 13:17:00 Test Item Value Reference Range Interpretation Comments Hgb (test code = Hgb) 9.9 12.0-16.0 [place] [address]383-02-22 13:17:00 Test Item Value Reference Range Interpretation Comments Hct (test code = Hct) 30.3 36.0-48.0 [facility] HospitalOijlgowHCTJGZWETH9599-98-71 13:17:00 Test Item Value Reference Range Interpretation Comments MCV (test code = MCV) 91.8 80.0-98.0 [facility] HospitalByonmmlXUOICLPOVV5226-40-42 13:17:00 Test Item Value Reference Range Interpretation Comments MCH (test code = MCH) 30.0 pg 27.0-31.0 [facility] HospitalXifhjnjZVVRMGKYRR5580-00-34 13:17:00 Test Item Value Reference Range Interpretation Comments MCHC (test code = MCHC) 32.7 32.0-36.0 [facility] HospitalGqymkyaLYXRTZGDVA7842-57-84 13:17:00 Test Item Value Reference Range Interpretation Comments RDW (test code = RDW) 14.4 11.5-14.5 [facility] HospitalPosncdsPHZHOCWJCU2640-54-15 13:17:00 Test Item Value Reference Range Interpretation Comments Platelet (test code = Platelet) 136 133-450 [facility] HospitalUrbmwgcZVWDUTAMFX8355-19-24 13:17:00 Test Item Value Reference Range Interpretation Comments MPV (test code = MPV) 8.7 7.4-10.4 [facility] HospitalPARATHYROID FYTHLYZ2616-79-19 13:17:00 Test Item Value Reference Range Interpretation Comments Ca Ion WB (test code = Ca Ion WB) 1.06 1.05-1.25 [facility] ELZCNHK6790-43-66 13:17:00 Test Item Value Reference Range Interpretation Comments Ca Ion at pH 7.4 WB (test code = Ca Ion 1.03 1.05-1.25 at pH 7.4 WB) [facility]2023-02-22 13:17:00 Test Item Value Reference Range Interpretation Comments Glucose Lvl (test code = Glucose Lvl) 65 70-99 [place]363-02-22 13:17:00 Test Item Value Reference Range Interpretation Comments BUN (test code = BUN) 39 7-22 [place] 454363-02-22 13:17:00 Test Item Value Reference Range Interpretation Comments Creatinine Lvl (test code = Creatinine 2.03 0.50-1.40 Lvl) [place] 454363-02-22 13:17:00 Test Item Value Reference Range Interpretation Comments Sodium Lvl (test code = Sodium Lvl) 139 135-145 [place] 454363-02-22 13:17:00 Test Item Value Reference Range Interpretation Comments Potassium Lvl (test code = Potassium 4.7 3.5-5.1 Lvl) [place] 454363-02-22 13:17:00 Test Item Value Reference Range Interpretation Comments Chloride Lvl (test code = Chloride Lvl) 107 95-109 [place] 454363-02-22 13:17:00 Test Item Value Reference Range Interpretation Comments CO2 (test code = CO2) 26 24-32 [place] 454363-02-22 13:17:00 Test Item Value Reference Range Interpretation Comments Calcium Lvl (test code = Calcium Lvl) 8.1 8.5-10.5 [place] 454363-02-22 13:17:00 Test Item Value Reference Range Interpretation Comments AGAP (test code = AGAP) 10.7 10.0-20.0 [place] 454363-02-22 13:17:00 Test Item Value Reference Range Interpretation Comments eGFR (test code = eGFR) 24 [place] 454363-02-22 13:17:00 Test Item Value Reference Range Interpretation Comments Magnesium Lvl (test code = Magnesium 2.7 1.8-2.4 Lvl) [place] 454363-02-22 13:17:00 Test Item Value Reference Range Interpretation Comments Phosphorus (test code = Phosphorus) 3.9 2.5-4.5 [place] 711343-02-22 13:17:00 Test Item Value Reference Range Interpretation Comments Glucose Lvl (test code = Glucose Lvl) 65 70-99 [place] 711343-02-22 13:17:00 Test Item Value Reference Range Interpretation Comments BUN (test code = BUN) 39 7-22 [facility]ipqoanZPYDUBZZK1368-45-14 13:17:00 Test Item Value Reference Range Interpretation Comments Creatinine Lvl (test code = Creatinine 2.03 0.50-1.40 Lvl) [facility]iscoTlvkndbJHBVDEWCD9476-96-54 13:17:00 Test Item Value Reference Range Interpretation Comments Sodium Lvl (test code = Sodium Lvl) 139 135-145 [facility]iscoQzavrfbTCMWPFNKB4910-70-43 13:17:00 Test Item Value Reference Range Interpretation Comments Potassium Lvl (test code = Potassium 4.7 3.5-5.1 Lvl) [facility]iscoPmrapsvSXIKVOFYN5860-07-93 13:17:00 Test Item Value Reference Range Interpretation Comments Chloride Lvl (test code = Chloride Lvl) 107 95-109 [facility]iscoNwiggvaRIJEIWBEP6938-86-89 13:17:00 Test Item Value Reference Range Interpretation Comments CO2 (test code = CO2) 26 24-32 [facility]iscoLadfpkvJYHPPSGKZ3311-47-52 13:17:00 Test Item Value Reference Range Interpretation Comments Calcium Lvl (test code = Calcium Lvl) 8.1 8.5-10.5 [facility]iscoCrackqhEKAJVFQRL9108-96-80 13:17:00 Test Item Value Reference Range Interpretation Comments AGAP (test code = AGAP) 10.7 10.0-20.0 [facility]iscoRlsnrsyPZFTRMKGT8739-15-62 13:17:00 Test Item Value Reference Range Interpretation Comments eGFR (test code = eGFR) 24 [facility]iscoZxhacgzIBZIXHOIF9767-70-58 13:17:00 Test Item Value Reference Range Interpretation Comments Ca Ion WB (test code = Ca Ion WB) 1.06 1.05-1.25 [facility]iscoSiepbsxWONGFVCVQ7932-30-21 13:17:00 Test Item Value Reference Range Interpretation Comments Ca Ion at pH 7.4 WB (test code = Ca Ion 1.03 1.05-1.25 at pH 7.4 WB) [facility]iscoLiloxvoZFODRTNVK6704-04-21 13:17:00 Test Item Value Reference Range Interpretation Comments Magnesium Lvl (test code = Magnesium 2.7 1.8-2.4 Lvl) [facility]iscoFvmaobhNJLJRHXBQ4298-05-61 13:17:00 Test Item Value Reference Range Interpretation Comments Phosphorus (test code = Phosphorus) 3.9 2.5-4.5 [place] [address]383-02-22 13:17:00 Test Item Value Reference Range Interpretation Comments Segs (test code = Segs) 54.4 45.0-75.0 [place] [address]-02-22 13:17:00 Test Item Value Reference Range Interpretation Comments Lymphocytes (test code = Lymphocytes) 29.3 20.0-40.0 [place] [address]-02-22 13:17:00 Test Item Value Reference Range Interpretation Comments Monocytes (test code = Monocytes) 10.5 2.0-12.0 [place] [address]-02-22 13:17:00 Test Item Value Reference Range Interpretation Comments Eosinophils (test code = 5.0 See_Comment [A utomated message] The Eosinophils) system which ge nerated this result tra nsmitted reference range : <=4.0. The reference r christiano was not used to int erpret this result as normal/abnormal . [place] [address]383-02-22 13:17:00 Test Item Value Reference Range Interpretation Comments Basophils (test code = 0.8 See_Comment [Aut omated message] The Basophils) system which ge nerated this result tra nsmitted reference range : <=1.0. The reference r christiano was not used to int erpret this result as normal/abnormal . [place] [address]383-02-22 13:17:00 Test Item Value Reference Range Interpretation Comments Neutrophils # (test code = Neutrophils 4.1 1.5-8.1 #) [place] [address]383-02-22 13:17:00 Test Item Value Reference Range Interpretation Comments Lymphocytes # (test code = Lymphocytes 2.2 1.0-5.5 #) [place] [address]-02-22 13:17:00 Test Item Value Reference Range Interpretation Comments Monocytes # (test code 0.8 See_Comment [Aut omated message] The = Monocytes #) system which generated this result tra nsmitted reference range : <=0.8. The reference r christiano was not used to int erpret this result as normal/abnormal . [place] [address]383-02-22 13:17:00 Test Item Value Reference Range Interpretation Comments Eosinophils # (test code 0.4 See_Comment [A utomated message] The = Eosinophils #) system whic h generated this result tra nsmitted reference range : <=0.5. The reference r christiano was not used to int erpret this result as normal/abnormal . [facility] HospitalCjnhexxGGMCCQIDXM2278-38-87 13:17:00 Test Item Value Reference Range Interpretation Comments Basophils # (test code 0.1 See_Comment [Aut omated message] The = Basophils #) system which generated this result tra nsmitted reference range : <=0.2. The reference r christiano was not used to int erpret this result as normal/abnormal . [facility] HospitalEbefmenKAMMFGAYWG2519-67-38 13:17:00 Test Item Value Reference Range Interpretation Comments WBC (test code = WBC) 7.5 3.7-10.4 [place] [address]383-02-22 13:17:00 Test Item Value Reference Range Interpretation Comments RBC (test code = RBC) 3.30 4.20-5.40 [facility] HospitalYbitimtSSQUWMAEAU2733-25-52 13:17:00 Test Item Value Reference Range Interpretation Comments Hgb (test code = Hgb) 9.9 12.0-16.0 [facility] HospitalQfbvfnxUGGLXIGBSQ3852-62-35 13:17:00 Test Item Value Reference Range Interpretation Comments Hct (test code = Hct) 30.3 36.0-48.0 [facility] HospitalRcobimsNLZHPCDRVS3864-73-07 13:17:00 Test Item Value Reference Range Interpretation Comments MCV (test code = MCV) 91.8 80.0-98.0 [place] [address]383-02-22 13:17:00 Test Item Value Reference Range Interpretation Comments MCH (test code = MCH) 30.0 pg 27.0-31.0 [facility] HospitalWsnxxivHLUFRRPDJP4875-63-09 13:17:00 Test Item Value Reference Range Interpretation Comments MCHC (test code = MCHC) 32.7 32.0-36.0 [facility] HospitalEgthvijYAEICJQXKW8298-69-56 13:17:00 Test Item Value Reference Range Interpretation Comments RDW (test code = RDW) 14.4 11.5-14.5 [place] [address]383-02-22 13:17:00 Test Item Value Reference Range Interpretation Comments Platelet (test code = Platelet) 136 133-450 [facility] HospitalPhtwegxNAVWJLQCXN0716-38-30 13:17:00 Test Item Value Reference Range Interpretation Comments MPV (test code = MPV) 8.7 7.4-10.4 [place] 633383-02-22 13:17:00 Test Item Value Reference Range Interpretation Comments Segs (test code = Segs) 54.4 45.0-75.0 [place] [id number] 13:17:00 Test Item Value Reference Range Interpretation Comments Lymphocytes (test code = Lymphocytes) 29.3 20.0-40.0 [place] 633383-02-22 13:17:00 Test Item Value Reference Range Interpretation Comments Monocytes (test code = Monocytes) 10.5 2.0-12.0 [place] 633383-02-22 13:17:00 Test Item Value Reference Range Interpretation Comments Eosinophils (test code = 5.0 See_Comment [A utomated message] The Eosinophils) system which ge nerated this result tra nsmitted reference range : <=4.0. The reference r christiano was not used to int erpret this result as normal/abnormal . [place] 633383-02-22 13:17:00 Test Item Value Reference Range Interpretation Comments Basophils (test code = 0.8 See_Comment [Aut omated message] The Basophils) system which ge nerated this result tra nsmitted reference range : <=1.0. The reference r christiano was not used to int erpret this result as normal/abnormal . [facility]JavdokjNLVMGHVSAY8182-92-16 13:17:00 Test Item Value Reference Range Interpretation Comments Neutrophils # (test code = Neutrophils 4.1 1.5-8.1 #) [facility] HospitalHcdikaoGDCRLGRKOF3030-87-77 13:17:00 Test Item Value Reference Range Interpretation Comments Lymphocytes # (test code = Lymphocytes 2.2 1.0-5.5 #) [place] 633383-02-22 13:17:00 Test Item Value Reference Range Interpretation Comments Monocytes # (test code 0.8 See_Comment [Aut omated message] The = Monocytes #) system which generated this result tra nsmitted reference range : <=0.8. The reference r christiano was not used to int erpret this result as normal/abnormal . [place] 633383-02-22 13:17:00 Test Item Value Reference Range Interpretation Comments Eosinophils # (test code 0.4 See_Comment [A utomated message] The = Eosinophils #) system whic h generated this result tra nsmitted reference range : <=0.5. The reference r christiano was not used to int erpret this result as normal/abnormal . [facility] HospitalEpejbqoGDBPNLRRNG8187-58-77 13:17:00 Test Item Value Reference Range Interpretation Comments Basophils # (test code 0.1 See_Comment [Aut omated message] The = Basophils #) system which generated this result tra nsmitted reference range : <=0.2. The reference r christiano was not used to int erpret this result as normal/abnormal . [facility] HospitalTbyvuebOWPZYUZNMG8436-51-16 13:17:00 Test Item Value Reference Range Interpretation Comments WBC (test code = WBC) 7.5 3.7-10.4 [place] 633383-02-22 13:17:00 Test Item Value Reference Range Interpretation Comments RBC (test code = RBC) 3.30 4.20-5.40 [place] 633383-02-22 13:17:00 Test Item Value Reference Range Interpretation Comments Hgb (test code = Hgb) 9.9 12.0-16.0 [place] 633383-02-22 13:17:00 Test Item Value Reference Range Interpretation Comments Hct (test code = Hct) 30.3 36.0-48.0 [place] 633383-02-22 13:17:00 Test Item Value Reference Range Interpretation Comments MCV (test code = MCV) 91.8 80.0-98.0 [place] 633383-02-22 13:17:00 Test Item Value Reference Range Interpretation Comments MCH (test code = MCH) 30.0 pg 27.0-31.0 [place] 633383-02-22 13:17:00 Test Item Value Reference Range Interpretation Comments MCHC (test code = MCHC) 32.7 32.0-36.0 [place] 633383-02-22 13:17:00 Test Item Value Reference Range Interpretation Comments RDW (test code = RDW) 14.4 11.5-14.5 [place] 633383-02-22 13:17:00 Test Item Value Reference Range Interpretation Comments Platelet (test code = Platelet) 136 133-450 [facility] 13:17:00 Test Item Value Reference Range Interpretation Comments MPV (test code = MPV) 8.7 7.4-10.4 [place] 010063-02-22 13:17:00 Test Item Value Reference Range Interpretation Comments Ca Ion WB (test code = Ca Ion WB) 1.06 1.05-1.25 [place] 010063-02-22 13:17:00 Test Item Value Reference Range Interpretation Comments Ca Ion at pH 7.4 WB (test code = Ca Ion 1.03 1.05-1.25 at pH 7.4 WB) [place] 454363-02-22 13:17:00 Test Item Value Reference Range Interpretation Comments Glucose Lvl (test code = Glucose Lvl) 65 70-99 [place] 454363-02-22 13:17:00 Test Item Value Reference Range Interpretation Comments BUN (test code = BUN) 39 7-22 [place] 454363-02-22 13:17:00 Test Item Value Reference Range Interpretation Comments Creatinine Lvl (test code = Creatinine 2.03 0.50-1.40 Lvl) [facility]2023-02-22 13:17:00 Test Item Value Reference Range Interpretation Comments Sodium Lvl (test code = Sodium Lvl) 139 135-145 [place] 454363-02-22 13:17:00 Test Item Value Reference Range Interpretation Comments Potassium Lvl (test code = Potassium 4.7 3.5-5.1 Lvl) [place] 454363-02-22 13:17:00 Test Item Value Reference Range Interpretation Comments Chloride Lvl (test code = Chloride Lvl) 107 95-109 [place] 454363-02-22 13:17:00 Test Item Value Reference Range Interpretation Comments CO2 (test code = CO2) 26 24-32 [place] 454363-02-22 13:17:00 Test Item Value Reference Range Interpretation Comments Calcium Lvl (test code = Calcium Lvl) 8.1 8.5-10.5 [place] 454363-02-22 13:17:00 Test Item Value Reference Range Interpretation Comments AGAP (test code = AGAP) 10.7 10.0-20.0 [place] 454363-02-22 13:17:00 Test Item Value Reference Range Interpretation Comments eGFR (test code = eGFR) 24 [place] 454363-02-22 13:17:00 Test Item Value Reference Range Interpretation Comments Magnesium Lvl (test code = Magnesium 2.7 1.8-2.4 Lvl) [facility]2023-02-22 13:17:00 Test Item Value Reference Range Interpretation Comments Phosphorus (test code = Phosphorus) 3.9 2.5-4.5 [place] 711343-02-22 13:17:00 Test Item Value Reference Range Interpretation Comments Glucose Lvl (test code = Glucose Lvl) 65 70-99 [place] [address]-02-22 13:17:00 Test Item Value Reference Range Interpretation Comments BUN (test code = BUN) 39 7-22 [place] 711343-02-22 13:17:00 Test Item Value Reference Range Interpretation Comments Creatinine Lvl (test code = Creatinine 2.03 0.50-1.40 Lvl) [facility] 13:17:00 Test Item Value Reference Range Interpretation Comments Sodium Lvl (test code = Sodium Lvl) 139 135-145 [facility]ptcztpOJYPIHDKQ9948-67-53 13:17:00 Test Item Value Reference Range Interpretation Comments Potassium Lvl (test code = Potassium 4.7 3.5-5.1 Lvl) [facility]pmebryXNNAWXQES2236-12-24 13:17:00 Test Item Value Reference Range Interpretation Comments Chloride Lvl (test code = Chloride Lvl) 107 95-109 [facility]JwjzqiwEUFOZIBAO5869-26-53 13:17:00 Test Item Value Reference Range Interpretation Comments CO2 (test code = CO2) 26 24-32 [place] 711343-02-22 13:17:00 Test Item Value Reference Range Interpretation Comments Calcium Lvl (test code = Calcium Lvl) 8.1 8.5-10.5 [place] 711343-02-22 13:17:00 Test Item Value Reference Range Interpretation Comments AGAP (test code = AGAP) 10.7 10.0-20.0 [place] 711343-02-22 13:17:00 Test Item Value Reference Range Interpretation Comments eGFR (test code = eGFR) 24 [facility]yxtnblKLSLPIYFP0283-44-00 13:17:00 Test Item Value Reference Range Interpretation Comments Ca Ion WB (test code = Ca Ion WB) 1.06 1.05-1.25 [place] 711343-02-22 13:17:00 Test Item Value Reference Range Interpretation Comments Ca Ion at pH 7.4 WB (test code = Ca Ion 1.03 1.05-1.25 at pH 7.4 WB) [facility]qlleaaWYZLTJTJC0857-29-00 13:17:00 Test Item Value Reference Range Interpretation Comments Magnesium Lvl (test code = Magnesium 2.7 1.8-2.4 Lvl) [facility]jjbqqsPASMBTJAA6785-11-72 13:17:00 Test Item Value Reference Range Interpretation Comments Phosphorus (test code = Phosphorus) 3.9 2.5-4.5 [place] 633383-02-22 13:17:00 Test Item Value Reference Range Interpretation Comments Segs (test code = Segs) 54.4 45.0-75.0 [place] 633383-02-22 13:17:00 Test Item Value Reference Range Interpretation Comments Lymphocytes (test code = Lymphocytes) 29.3 20.0-40.0 [place] 633383-02-22 13:17:00 Test Item Value Reference Range Interpretation Comments Monocytes (test code = Monocytes) 10.5 2.0-12.0 [place] 633383-02-22 13:17:00 Test Item Value Reference Range Interpretation Comments Eosinophils (test code = 5.0 See_Comment [A utomated message] The Eosinophils) system which ge nerated this result tra nsmitted reference range : <=4.0. The reference r christiano was not used to int erpret this result as normal/abnormal . [facility] HospitalKcdyqbmHVIIRAKRXP1793-32-46 13:17:00 Test Item Value Reference Range Interpretation Comments Basophils (test code = 0.8 See_Comment [Aut omated message] The Basophils) system which ge nerated this result tra nsmitted reference range : <=1.0. The reference r christiano was not used to int erpret this result as normal/abnormal . [place] 633383-02-22 13:17:00 Test Item Value Reference Range Interpretation Comments Neutrophils # (test code = Neutrophils 4.1 1.5-8.1 #) [place] 633383-02-22 13:17:00 Test Item Value Reference Range Interpretation Comments Lymphocytes # (test code = Lymphocytes 2.2 1.0-5.5 #) [place] 633383-02-22 13:17:00 Test Item Value Reference Range Interpretation Comments Monocytes # (test code 0.8 See_Comment [Aut omated message] The = Monocytes #) system which generated this result tra nsmitted reference range : <=0.8. The reference r christiano was not used to int erpret this result as normal/abnormal . [place] 633383-02-22 13:17:00 Test Item Value Reference Range Interpretation Comments Eosinophils # (test code 0.4 See_Comment [A utomated message] The = Eosinophils #) system whic h generated this result tra nsmitted reference range : <=0.5. The reference r christiano was not used to int erpret this result as normal/abnormal . [place] 633383-02-22 13:17:00 Test Item Value Reference Range Interpretation Comments Basophils # (test code 0.1 See_Comment [Aut omated message] The = Basophils #) system which generated this result tra nsmitted reference range : <=0.2. The reference r christiano was not used to int erpret this result as normal/abnormal . [place] 633383-02-22 13:17:00 Test Item Value Reference Range Interpretation Comments WBC (test code = WBC) 7.5 3.7-10.4 [place] 633383-02-22 13:17:00 Test Item Value Reference Range Interpretation Comments RBC (test code = RBC) 3.30 4.20-5.40 [place] [address]1971-02-22 13:17:00 Test Item Value Reference Range Interpretation Comments Hgb (test code = Hgb) 9.9 12.0-16.0 [place] [address]1971-02-22 13:17:00 Test Item Value Reference Range Interpretation Comments Hct (test code = Hct) 30.3 36.0-48.0 [place] [address]1971-02-22 13:17:00 Test Item Value Reference Range Interpretation Comments MCV (test code = MCV) 91.8 80.0-98.0 [place] 633383-02-22 13:17:00 Test Item Value Reference Range Interpretation Comments MCH (test code = MCH) 30.0 pg 27.0-31.0 [place] 633383-02-22 13:17:00 Test Item Value Reference Range Interpretation Comments MCHC (test code = MCHC) 32.7 32.0-36.0 [place] 633383-02-22 13:17:00 Test Item Value Reference Range Interpretation Comments RDW (test code = RDW) 14.4 11.5-14.5 [place] 633383-02-22 13:17:00 Test Item Value Reference Range Interpretation Comments Platelet (test code = Platelet) 136 133-450 [place] 633383-02-22 13:17:00 Test Item Value Reference Range Interpretation Comments MPV (test code = MPV) 8.7 7.4-10.4 [place] 633383-02-22 13:17:00 Test Item Value Reference Range Interpretation Comments Segs (test code = Segs) 54.4 45.0-75.0 [place] 633383-02-22 13:17:00 Test Item Value Reference Range Interpretation Comments Lymphocytes (test code = Lymphocytes) 29.3 20.0-40.0 [place] 633383-02-22 13:17:00 Test Item Value Reference Range Interpretation Comments Monocytes (test code = Monocytes) 10.5 2.0-12.0 [place] 633383-02-22 13:17:00 Test Item Value Reference Range Interpretation Comments Eosinophils (test code = 5.0 See_Comment [A utomated message] The Eosinophils) system which ge nerated this result tra nsmitted reference range : <=4.0. The reference r christiano was not used to int erpret this result as normal/abnormal . [place] 633383-02-22 13:17:00 Test Item Value Reference Range Interpretation Comments Basophils (test code = 0.8 See_Comment [Aut omated message] The Basophils) system which ge nerated this result tra nsmitted reference range : <=1.0. The reference r christiano was not used to int erpret this result as normal/abnormal . [place] 633383-02-22 13:17:00 Test Item Value Reference Range Interpretation Comments Neutrophils # (test code = Neutrophils 4.1 1.5-8.1 #) [place] 633383-02-22 13:17:00 Test Item Value Reference Range Interpretation Comments Lymphocytes # (test code = Lymphocytes 2.2 1.0-5.5 #) [place] 633383-02-22 13:17:00 Test Item Value Reference Range Interpretation Comments Monocytes # (test code 0.8 See_Comment [Aut omated message] The = Monocytes #) system which generated this result tra nsmitted reference range : <=0.8. The reference r christiano was not used to int erpret this result as normal/abnormal . [place] 633383-02-22 13:17:00 Test Item Value Reference Range Interpretation Comments Eosinophils # (test code 0.4 See_Comment [A utomated message] The = Eosinophils #) system whic h generated this result tra nsmitted reference range : <=0.5. The reference r christiano was not used to int erpret this result as normal/abnormal . [facility] HospitalRnoqrjzDGBVSLWYZP3660-85-65 13:17:00 Test Item Value Reference Range Interpretation Comments Basophils # (test code 0.1 See_Comment [Aut omated message] The = Basophils #) system which generated this result tra nsmitted reference range : <=0.2. The reference r christiano was not used to int erpret this result as normal/abnormal . [facility] HospitalVnvsokeQVKEZBTNPG4629-94-31 13:17:00 Test Item Value Reference Range Interpretation Comments WBC (test code = WBC) 7.5 3.7-10.4 [place] 633383-02-22 13:17:00 Test Item Value Reference Range Interpretation Comments RBC (test code = RBC) 3.30 4.20-5.40 [place] [address]-02-22 13:17:00 Test Item Value Reference Range Interpretation Comments Hgb (test code = Hgb) 9.9 12.0-16.0 [place] 91971-02-22 13:17:00 Test Item Value Reference Range Interpretation Comments Hct (test code = Hct) 30.3 36.0-48.0 [place] [address]1971-02-22 13:17:00 Test Item Value Reference Range Interpretation Comments MCV (test code = MCV) 91.8 80.0-98.0 [place] 633383-02-22 13:17:00 Test Item Value Reference Range Interpretation Comments MCH (test code = MCH) 30.0 pg 27.0-31.0 [place] 633383-02-22 13:17:00 Test Item Value Reference Range Interpretation Comments MCHC (test code = MCHC) 32.7 32.0-36.0 [facility] HospitalXvygygwNGDGDYSZFL9997-65-27 13:17:00 Test Item Value Reference Range Interpretation Comments RDW (test code = RDW) 14.4 11.5-14.5 [place] 633383-02-22 13:17:00 Test Item Value Reference Range Interpretation Comments Platelet (test code = Platelet) 136 133-450 [facility] HospitalEgmkuqyDXRONWANRI2128-09-98 13:17:00 Test Item Value Reference Range Interpretation Comments MPV (test code = MPV) 8.7 7.4-10.4 [facility]BSI[facility]59 13:17:00 Test Item Value Reference Range Interpretation Comments Ca Ion WB (test code = Ca Ion WB) 1.06 1.05-1.25 [place] 010063-02-22 13:17:00 Test Item Value Reference Range Interpretation Comments Ca Ion at pH 7.4 WB (test code = Ca Ion 1.03 1.05-1.25 at pH 7.4 WB) [facility]2023-02-22 13:17:00 Test Item Value Reference Range Interpretation Comments Glucose Lvl (test code = Glucose Lvl) 65 70-99 [facility]2023-02-22 13:17:00 Test Item Value Reference Range Interpretation Comments BUN (test code = BUN) 39 7-22 [place] 454363-02-22 13:17:00 Test Item Value Reference Range Interpretation Comments Creatinine Lvl (test code = Creatinine 2.03 0.50-1.40 Lvl) [facility]2023-02-22 13:17:00 Test Item Value Reference Range Interpretation Comments Sodium Lvl (test code = Sodium Lvl) 139 135-145 [place] 454363-02-22 13:17:00 Test Item Value Reference Range Interpretation Comments Potassium Lvl (test code = Potassium 4.7 3.5-5.1 Lvl) [place] 454363-02-22 13:17:00 Test Item Value Reference Range Interpretation Comments Chloride Lvl (test code = Chloride Lvl) 107 95-109 [place] 454363-02-22 13:17:00 Test Item Value Reference Range Interpretation Comments CO2 (test code = CO2) 26 24-32 [place] 454363-02-22 13:17:00 Test Item Value Reference Range Interpretation Comments Calcium Lvl (test code = Calcium Lvl) 8.1 8.5-10.5 [place] [address]3527-02-22 13:17:00 Test Item Value Reference Range Interpretation Comments AGAP (test code = AGAP) 10.7 10.0-20.0 [place] 454363-02-22 13:17:00 Test Item Value Reference Range Interpretation Comments eGFR (test code = eGFR) 24 [place] 454363-02-22 13:17:00 Test Item Value Reference Range Interpretation Comments Magnesium Lvl (test code = Magnesium 2.7 1.8-2.4 Lvl) [place] 454363-02-22 13:17:00 Test Item Value Reference Range Interpretation Comments Phosphorus (test code = Phosphorus) 3.9 2.5-4.5 [place] 711343-02-22 13:17:00 Test Item Value Reference Range Interpretation Comments Glucose Lvl (test code = Glucose Lvl) 65 70-99 [place] 711343-02-22 13:17:00 Test Item Value Reference Range Interpretation Comments BUN (test code = BUN) 39 7-22 [place] [address]-02-22 13:17:00 Test Item Value Reference Range Interpretation Comments Creatinine Lvl (test code = Creatinine 2.03 0.50-1.40 Lvl) [place] 711343-02-22 13:17:00 Test Item Value Reference Range Interpretation Comments Sodium Lvl (test code = Sodium Lvl) 139 135-145 [place] 711343-02-22 13:17:00 Test Item Value Reference Range Interpretation Comments Potassium Lvl (test code = Potassium 4.7 3.5-5.1 Lvl) [place] 711343-02-22 13:17:00 Test Item Value Reference Range Interpretation Comments Chloride Lvl (test code = Chloride Lvl) 107 95-109 [facility]zesxsHZVPOWGDD4384-16-06 13:17:00 Test Item Value Reference Range Interpretation Comments CO2 (test code = CO2) 26 24-32 [facility]iscoTryzhxpLKWGCKQOI5423-88-61 13:17:00 Test Item Value Reference Range Interpretation Comments Calcium Lvl (test code = Calcium Lvl) 8.1 8.5-10.5 [facility]iscoOriklkzHDEDIYBWI6652-72-85 13:17:00 Test Item Value Reference Range Interpretation Comments AGAP (test code = AGAP) 10.7 10.0-20.0 [facility]iscoXrixfjeELSCENXPX6097-66-31 13:17:00 Test Item Value Reference Range Interpretation Comments eGFR (test code = eGFR) 24 [facility]iscoGjultcgUAFOLTEHP7474-02-48 13:17:00 Test Item Value Reference Range Interpretation Comments Ca Ion WB (test code = Ca Ion WB) 1.06 1.05-1.25 [facility]iscoTyfuqomPRVQFILQV8656-04-12 13:17:00 Test Item Value Reference Range Interpretation Comments Ca Ion at pH 7.4 WB (test code = Ca Ion 1.03 1.05-1.25 at pH 7.4 WB) [facility]iscoBjheavkMNYUDLHOT5958-89-65 13:17:00 Test Item Value Reference Range Interpretation Comments Magnesium Lvl (test code = Magnesium 2.7 1.8-2.4 Lvl) [facility]iscoNvddwwrIGDPFERXK2988-51-85 13:17:00 Test Item Value Reference Range Interpretation Comments Phosphorus (test code = Phosphorus) 3.9 2.5-4.5 [facility] HospitalMyfyyexMJDXGGAQNY5318-27-43 13:17:00 Test Item Value Reference Range Interpretation Comments Segs (test code = Segs) 54.4 45.0-75.0 [facility] HospitalZbvwknbILNKUFTDKH5817-72-04 13:17:00 Test Item Value Reference Range Interpretation Comments Lymphocytes (test code = Lymphocytes) 29.3 20.0-40.0 [place] 633383-02-22 13:17:00 Test Item Value Reference Range Interpretation Comments Monocytes (test code = Monocytes) 10.5 2.0-12.0 [facility] HospitalUblrmvdCXQUEKDRDR9891-59-62 13:17:00 Test Item Value Reference Range Interpretation Comments Eosinophils (test code = 5.0 See_Comment [A utomated message] The Eosinophils) system which ge nerated this result tra nsmitted reference range : <=4.0. The reference r christiano was not used to int erpret this result as normal/abnormal . [place] 633383-02-22 13:17:00 Test Item Value Reference Range Interpretation Comments Basophils (test code = 0.8 See_Comment [Aut omated message] The Basophils) system which ge nerated this result tra nsmitted reference range : <=1.0. The reference r christiano was not used to int erpret this result as normal/abnormal . [place] 633383-02-22 13:17:00 Test Item Value Reference Range Interpretation Comments Neutrophils # (test code = Neutrophils 4.1 1.5-8.1 #) [place] 633383-02-22 13:17:00 Test Item Value Reference Range Interpretation Comments Lymphocytes # (test code = Lymphocytes 2.2 1.0-5.5 #) [place] 633383-02-22 13:17:00 Test Item Value Reference Range Interpretation Comments Monocytes # (test code 0.8 See_Comment [Aut omated message] The = Monocytes #) system which generated this result tra nsmitted reference range : <=0.8. The reference r christiano was not used to int erpret this result as normal/abnormal . [facility] HospitalCvuspnwZPNFRPSTDQ7753-63-64 13:17:00 Test Item Value Reference Range Interpretation Comments Eosinophils # (test code 0.4 See_Comment [A utomated message] The = Eosinophils #) system whic h generated this result tra nsmitted reference range : <=0.5. The reference r christiano was not used to int erpret this result as normal/abnormal . [place] 633383-02-22 13:17:00 Test Item Value Reference Range Interpretation Comments Basophils # (test code 0.1 See_Comment [Aut omated message] The = Basophils #) system which generated this result tra nsmitted reference range : <=0.2. The reference r christiano was not used to int erpret this result as normal/abnormal . [place] 633383-02-22 13:17:00 Test Item Value Reference Range Interpretation Comments WBC (test code = WBC) 7.5 3.7-10.4 [place] [address]-02-22 13:17:00 Test Item Value Reference Range Interpretation Comments RBC (test code = RBC) 3.30 4.20-5.40 [place] 633383-02-22 13:17:00 Test Item Value Reference Range Interpretation Comments Hgb (test code = Hgb) 9.9 12.0-16.0 [place] [address]-02-22 13:17:00 Test Item Value Reference Range Interpretation Comments Hct (test code = Hct) 30.3 36.0-48.0 [place] 633383-02-22 13:17:00 Test Item Value Reference Range Interpretation Comments MCV (test code = MCV) 91.8 80.0-98.0 [place] [address]-02-22 13:17:00 Test Item Value Reference Range Interpretation Comments MCH (test code = MCH) 30.0 pg 27.0-31.0 [place] 633383-02-22 13:17:00 Test Item Value Reference Range Interpretation Comments MCHC (test code = MCHC) 32.7 32.0-36.0 [place] 633383-02-22 13:17:00 Test Item Value Reference Range Interpretation Comments RDW (test code = RDW) 14.4 11.5-14.5 [place] 633383-02-22 13:17:00 Test Item Value Reference Range Interpretation Comments Platelet (test code = Platelet) 136 133-450 [place] 633383-02-22 13:17:00 Test Item Value Reference Range Interpretation Comments MPV (test code = MPV) 8.7 7.4-10.4 [place] [address]-02-22 13:17:00 Test Item Value Reference Range Interpretation Comments Segs (test code = Segs) 54.4 45.0-75.0 [place] [address]-02-22 13:17:00 Test Item Value Reference Range Interpretation Comments Lymphocytes (test code = Lymphocytes) 29.3 20.0-40.0 [place] [address]-02-22 13:17:00 Test Item Value Reference Range Interpretation Comments Monocytes (test code = Monocytes) 10.5 2.0-12.0 [place] 633383-02-22 13:17:00 Test Item Value Reference Range Interpretation Comments Eosinophils (test code = 5.0 See_Comment [A utomated message] The Eosinophils) system which ge nerated this result tra nsmitted reference range : <=4.0. The reference r christiano was not used to int erpret this result as normal/abnormal . [facility] HospitalIxwdoxsIHATVESYJU7299-94-34 13:17:00 Test Item Value Reference Range Interpretation Comments Basophils (test code = 0.8 See_Comment [Aut omated message] The Basophils) system which ge nerated this result tra nsmitted reference range : <=1.0. The reference r christiano was not used to int erpret this result as normal/abnormal . [facility] HospitalYaqmnmjGEHDTABSXJ5301-85-94 13:17:00 Test Item Value Reference Range Interpretation Comments Neutrophils # (test code = Neutrophils 4.1 1.5-8.1 #) [facility] HospitalSwhcbvgFEHELIKOGE5449-65-19 13:17:00 Test Item Value Reference Range Interpretation Comments Lymphocytes # (test code = Lymphocytes 2.2 1.0-5.5 #) [place] 633383-02-22 13:17:00 Test Item Value Reference Range Interpretation Comments Monocytes # (test code 0.8 See_Comment [Aut omated message] The = Monocytes #) system which generated this result tra nsmitted reference range : <=0.8. The reference r christiano was not used to int erpret this result as normal/abnormal . [facility] HospitalGvpqnclFXWHSOQGSC3569-09-53 13:17:00 Test Item Value Reference Range Interpretation Comments Eosinophils # (test code 0.4 See_Comment [A utomated message] The = Eosinophils #) system whic h generated this result tra nsmitted reference range : <=0.5. The reference r christiano was not used to int erpret this result as normal/abnormal . [facility] HospitalIxttepwZCOHXGEFRQ0000-27-72 13:17:00 Test Item Value Reference Range Interpretation Comments Basophils # (test code 0.1 See_Comment [Aut omated message] The = Basophils #) system which generated this result tra nsmitted reference range : <=0.2. The reference r christiano was not used to int erpret this result as normal/abnormal . [place] 633383-02-22 13:17:00 Test Item Value Reference Range Interpretation Comments WBC (test code = WBC) 7.5 3.7-10.4 [facility] HospitalTvjcxilZBBFXQTTDB9388-32-96 13:17:00 Test Item Value Reference Range Interpretation Comments RBC (test code = RBC) 3.30 4.20-5.40 [facility] HospitalTwblbkqHYMLYBMZFA8642-63-58 13:17:00 Test Item Value Reference Range Interpretation Comments Hgb (test code = Hgb) 9.9 12.0-16.0 [facility] HospitalPhcsjhbZPHCLFOZBM8022-13-20 13:17:00 Test Item Value Reference Range Interpretation Comments Hct (test code = Hct) 30.3 36.0-48.0 [facility] HospitalFlfpkeyDISGUECQEF8635-97-62 13:17:00 Test Item Value Reference Range Interpretation Comments MCV (test code = MCV) 91.8 80.0-98.0 [facility] HospitalSaptabbHOMLFEQSIO6041-70-64 13:17:00 Test Item Value Reference Range Interpretation Comments MCH (test code = MCH) 30.0 pg 27.0-31.0 [facility] HospitalXfvvqcdHVBKSSEEOB4751-36-12 13:17:00 Test Item Value Reference Range Interpretation Comments MCHC (test code = MCHC) 32.7 32.0-36.0 [facility] HospitalMknbagqPYVZQWMKZM0248-86-42 13:17:00 Test Item Value Reference Range Interpretation Comments RDW (test code = RDW) 14.4 11.5-14.5 [facility] HospitalVkzuhzeIBIEBCPOUA7627-15-92 13:17:00 Test Item Value Reference Range Interpretation Comments Platelet (test code = Platelet) 136 133-450 [facility] HospitalBnjpkowSDUSYGWQHM9541-47-05 13:17:00 Test Item Value Reference Range Interpretation Comments MPV (test code = MPV) 8.7 7.4-10.4 [facility]annPARATHYROID EWOYMOK3436-62-63 13:17:00 Test Item Value Reference Range Interpretation Comments Ca Ion WB (test code = Ca Ion WB) 1.06 1.05-1.25 [facility] CenterannPARATHYROID GKPLUGY9850-74-15 13:17:00 Test Item Value Reference Range Interpretation Comments Ca Ion at pH 7.4 WB (test code = Ca Ion 1.03 1.05-1.25 at pH 7.4 WB) [place] 454363-02-22 13:17:00 Test Item Value Reference Range Interpretation Comments Glucose Lvl (test code = Glucose Lvl) 65 70-99 [place] 454363-02-22 13:17:00 Test Item Value Reference Range Interpretation Comments BUN (test code = BUN) 39 7-22 [place] 454363-02-22 13:17:00 Test Item Value Reference Range Interpretation Comments Creatinine Lvl (test code = Creatinine 2.03 0.50-1.40 Lvl) [place] 454363-02-22 13:17:00 Test Item Value Reference Range Interpretation Comments Sodium Lvl (test code = Sodium Lvl) 139 135-145 [place] 454363-02-22 13:17:00 Test Item Value Reference Range Interpretation Comments Potassium Lvl (test code = Potassium 4.7 3.5-5.1 Lvl) [place] 454363-02-22 13:17:00 Test Item Value Reference Range Interpretation Comments Chloride Lvl (test code = Chloride Lvl) 107 95-109 [place] 454363-02-22 13:17:00 Test Item Value Reference Range Interpretation Comments CO2 (test code = CO2) 26 24-32 [place] 454363-02-22 13:17:00 Test Item Value Reference Range Interpretation Comments Calcium Lvl (test code = Calcium Lvl) 8.1 8.5-10.5 [place] 454363-02-22 13:17:00 Test Item Value Reference Range Interpretation Comments AGAP (test code = AGAP) 10.7 10.0-20.0 [place] 454363-02-22 13:17:00 Test Item Value Reference Range Interpretation Comments eGFR (test code = eGFR) 24 [place] 454363-02-22 13:17:00 Test Item Value Reference Range Interpretation Comments Magnesium Lvl (test code = Magnesium 2.7 1.8-2.4 Lvl) [place] 454363-02-22 13:17:00 Test Item Value Reference Range Interpretation Comments Phosphorus (test code = Phosphorus) 3.9 2.5-4.5 [place] 711343-02-22 13:17:00 Test Item Value Reference Range Interpretation Comments Glucose Lvl (test code = Glucose Lvl) 65 70-99 [facility]IB[facility] 13:17:00 Test Item Value Reference Range Interpretation Comments BUN (test code = BUN) 39 7-22 [place] 711343-02-22 13:17:00 Test Item Value Reference Range Interpretation Comments Creatinine Lvl (test code = Creatinine 2.03 0.50-1.40 Lvl) [facility]iscoWipxitdRGPMMXIUY8739-08-17 13:17:00 Test Item Value Reference Range Interpretation Comments Sodium Lvl (test code = Sodium Lvl) 139 135-145 [place] 711343-02-22 13:17:00 Test Item Value Reference Range Interpretation Comments Potassium Lvl (test code = Potassium 4.7 3.5-5.1 Lvl) [facility]iscoBmxvyyxEDYFITTIN4128-87-71 13:17:00 Test Item Value Reference Range Interpretation Comments Chloride Lvl (test code = Chloride Lvl) 107 95-109 [place] 711343-02-22 13:17:00 Test Item Value Reference Range Interpretation Comments CO2 (test code = CO2) 26 24-32 [facility]iscoInfiywaLDTZEXPCV4783-18-93 13:17:00 Test Item Value Reference Range Interpretation Comments Calcium Lvl (test code = Calcium Lvl) 8.1 8.5-10.5 [facility]iscoElinrudYXLUYCFVM1536-10-67 13:17:00 Test Item Value Reference Range Interpretation Comments AGAP (test code = AGAP) 10.7 10.0-20.0 [facility]iscoVporjpcVPZDLULQS0597-33-32 13:17:00 Test Item Value Reference Range Interpretation Comments eGFR (test code = eGFR) 24 [facility]iscoRrmkrynGZBNVOVVN0946-39-15 13:17:00 Test Item Value Reference Range Interpretation Comments Ca Ion WB (test code = Ca Ion WB) 1.06 1.05-1.25 [place] 711343-02-22 13:17:00 Test Item Value Reference Range Interpretation Comments Ca Ion at pH 7.4 WB (test code = Ca Ion 1.03 1.05-1.25 at pH 7.4 WB) [facility]iscoHrrafklUGRHULWSW2480-32-95 13:17:00 Test Item Value Reference Range Interpretation Comments Magnesium Lvl (test code = Magnesium 2.7 1.8-2.4 Lvl) [facility]iscoFrlutiaWZVVPLGHB8346-72-23 13:17:00 Test Item Value Reference Range Interpretation Comments Phosphorus (test code = Phosphorus) 3.9 2.5-4.5 [place] 633383-02-22 13:17:00 Test Item Value Reference Range Interpretation Comments Segs (test code = Segs) 54.4 45.0-75.0 [place] 633383-02-22 13:17:00 Test Item Value Reference Range Interpretation Comments Lymphocytes (test code = Lymphocytes) 29.3 20.0-40.0 [place] 633383-02-22 13:17:00 Test Item Value Reference Range Interpretation Comments Monocytes (test code = Monocytes) 10.5 2.0-12.0 [place] 633383-02-22 13:17:00 Test Item Value Reference Range Interpretation Comments Eosinophils (test code = 5.0 See_Comment [A utomated message] The Eosinophils) system which ge nerated this result tra nsmitted reference range : <=4.0. The reference r christiano was not used to int erpret this result as normal/abnormal . [facility] HospitalOppvlyxRDNYCMMPLN9520-73-83 13:17:00 Test Item Value Reference Range Interpretation Comments Basophils (test code = 0.8 See_Comment [Aut omated message] The Basophils) system which ge nerated this result tra nsmitted reference range : <=1.0. The reference r christiano was not used to int erpret this result as normal/abnormal . [facility] HospitalGzfykzkRHLCRJKGXC3549-78-26 13:17:00 Test Item Value Reference Range Interpretation Comments Neutrophils # (test code = Neutrophils 4.1 1.5-8.1 #) [facility] HospitalIltsrhvCWHMRLYNYS8981-18-33 13:17:00 Test Item Value Reference Range Interpretation Comments Lymphocytes # (test code = Lymphocytes 2.2 1.0-5.5 #) [place] 633383-02-22 13:17:00 Test Item Value Reference Range Interpretation Comments Monocytes # (test code 0.8 See_Comment [Aut omated message] The = Monocytes #) system which generated this result tra nsmitted reference range : <=0.8. The reference r christiano was not used to int erpret this result as normal/abnormal . [place] 633383-02-22 13:17:00 Test Item Value Reference Range Interpretation Comments Eosinophils # (test code 0.4 See_Comment [A utomated message] The = Eosinophils #) system whic h generated this result tra nsmitted reference range : <=0.5. The reference r christiano was not used to int erpret this result as normal/abnormal . [facility] HospitalSjtkyewSFQDYUEGUI0987-07-79 13:17:00 Test Item Value Reference Range Interpretation Comments Basophils # (test code 0.1 See_Comment [Aut omated message] The = Basophils #) system which generated this result tra nsmitted reference range : <=0.2. The reference r christiano was not used to int erpret this result as normal/abnormal . [facility] HospitalKtinoasZAAHFILSCG3547-40-91 13:17:00 Test Item Value Reference Range Interpretation Comments WBC (test code = WBC) 7.5 3.7-10.4 [facility] HospitalPuafrjgBQATOHIDQI2845-33-16 13:17:00 Test Item Value Reference Range Interpretation Comments RBC (test code = RBC) 3.30 4.20-5.40 [facility] HospitalCbjivkxKZRKZAFSUT8293-61-07 13:17:00 Test Item Value Reference Range Interpretation Comments Hgb (test code = Hgb) 9.9 12.0-16.0 [facility] HospitalTituptfMEVHHDDKOM0480-00-67 13:17:00 Test Item Value Reference Range Interpretation Comments Hct (test code = Hct) 30.3 36.0-48.0 [facility] HospitalTwrlvaqZAGXMBZVIQ9622-89-63 13:17:00 Test Item Value Reference Range Interpretation Comments MCV (test code = MCV) 91.8 80.0-98.0 [place] 633383-02-22 13:17:00 Test Item Value Reference Range Interpretation Comments MCH (test code = MCH) 30.0 pg 27.0-31.0 [facility] HospitalEcbudsfCKUXRLHJYH2254-33-29 13:17:00 Test Item Value Reference Range Interpretation Comments MCHC (test code = MCHC) 32.7 32.0-36.0 [facility] HospitalNofhbwzQJDNUCXFSR4067-69-50 13:17:00 Test Item Value Reference Range Interpretation Comments RDW (test code = RDW) 14.4 11.5-14.5 [place] 633383-02-22 13:17:00 Test Item Value Reference Range Interpretation Comments Platelet (test code = Platelet) 136 133-450 [place] 633383-02-22 13:17:00 Test Item Value Reference Range Interpretation Comments MPV (test code = MPV) 8.7 7.4-10.4 [place] 633383-02-22 13:17:00 Test Item Value Reference Range Interpretation Comments Segs (test code = Segs) 54.4 45.0-75.0 [place] 633383-02-22 13:17:00 Test Item Value Reference Range Interpretation Comments Lymphocytes (test code = Lymphocytes) 29.3 20.0-40.0 [place] 633383-02-22 13:17:00 Test Item Value Reference Range Interpretation Comments Monocytes (test code = Monocytes) 10.5 2.0-12.0 [place] 633383-02-22 13:17:00 Test Item Value Reference Range Interpretation Comments Eosinophils (test code = 5.0 See_Comment [A utomated message] The Eosinophils) system which ge nerated this result tra nsmitted reference range : <=4.0. The reference r christiano was not used to int erpret this result as normal/abnormal . [place] 633383-02-22 13:17:00 Test Item Value Reference Range Interpretation Comments Basophils (test code = 0.8 See_Comment [Aut omated message] The Basophils) system which ge nerated this result tra nsmitted reference range : <=1.0. The reference r christiano was not used to int erpret this result as normal/abnormal . [facility] HospitalLnvhmjcCGSUZCKBAE9869-65-33 13:17:00 Test Item Value Reference Range Interpretation Comments Neutrophils # (test code = Neutrophils 4.1 1.5-8.1 #) [place] [address]383-02-22 13:17:00 Test Item Value Reference Range Interpretation Comments Lymphocytes # (test code = Lymphocytes 2.2 1.0-5.5 #) [place] [address]383-02-22 13:17:00 Test Item Value Reference Range Interpretation Comments Monocytes # (test code 0.8 See_Comment [Aut omated message] The = Monocytes #) system which generated this result tra nsmitted reference range : <=0.8. The reference r christiano was not used to int erpret this result as normal/abnormal . [facility] HospitalPvsasmcBOHVAHEXFF2544-04-53 13:17:00 Test Item Value Reference Range Interpretation Comments Eosinophils # (test code 0.4 See_Comment [A utomated message] The = Eosinophils #) system whic h generated this result tra nsmitted reference range : <=0.5. The reference r christiano was not used to int erpret this result as normal/abnormal . [facility] HospitalIgogobvQYIHCIZIOA0977-21-37 13:17:00 Test Item Value Reference Range Interpretation Comments Basophils # (test code 0.1 See_Comment [Aut omated message] The = Basophils #) system which generated this result tra nsmitted reference range : <=0.2. The reference r christiano was not used to int erpret this result as normal/abnormal . [facility] HospitalIkvoottTKMXNEMGHO8405-25-48 13:17:00 Test Item Value Reference Range Interpretation Comments WBC (test code = WBC) 7.5 3.7-10.4 [place] 633383-02-22 13:17:00 Test Item Value Reference Range Interpretation Comments RBC (test code = RBC) 3.30 4.20-5.40 [place] 633383-02-22 13:17:00 Test Item Value Reference Range Interpretation Comments Hgb (test code = Hgb) 9.9 12.0-16.0 [place] 633383-02-22 13:17:00 Test Item Value Reference Range Interpretation Comments Hct (test code = Hct) 30.3 36.0-48.0 [place] 633383-02-22 13:17:00 Test Item Value Reference Range Interpretation Comments MCV (test code = MCV) 91.8 80.0-98.0 [place] 633383-02-22 13:17:00 Test Item Value Reference Range Interpretation Comments MCH (test code = MCH) 30.0 pg 27.0-31.0 [place] 633383-02-22 13:17:00 Test Item Value Reference Range Interpretation Comments MCHC (test code = MCHC) 32.7 32.0-36.0 [place] 633383-02-22 13:17:00 Test Item Value Reference Range Interpretation Comments RDW (test code = RDW) 14.4 11.5-14.5 [place] [address]-02-22 13:17:00 Test Item Value Reference Range Interpretation Comments Platelet (test code = Platelet) 136 133-450 [place] 633383-02-22 13:17:00 Test Item Value Reference Range Interpretation Comments MPV (test code = MPV) 8.7 7.4-10.4 [facility]2023-02-22 13:17:00 Test Item Value Reference Range Interpretation Comments Ca Ion WB (test code = Ca Ion WB) 1.06 1.05-1.25 [place] 010063-02-22 13:17:00 Test Item Value Reference Range Interpretation Comments Ca Ion at pH 7.4 WB (test code = Ca Ion 1.03 1.05-1.25 at pH 7.4 WB) [place] 454363-02-22 13:17:00 Test Item Value Reference Range Interpretation Comments Glucose Lvl (test code = Glucose Lvl) 65 70-99 [place] 454363-02-22 13:17:00 Test Item Value Reference Range Interpretation Comments BUN (test code = BUN) 39 7-22 [place] 454363-02-22 13:17:00 Test Item Value Reference Range Interpretation Comments Creatinine Lvl (test code = Creatinine 2.03 0.50-1.40 Lvl) [facility]2023-02-22 13:17:00 Test Item Value Reference Range Interpretation Comments Sodium Lvl (test code = Sodium Lvl) 139 135-145 [place] 454363-02-22 13:17:00 Test Item Value Reference Range Interpretation Comments Potassium Lvl (test code = Potassium 4.7 3.5-5.1 Lvl) [place] 454363-02-22 13:17:00 Test Item Value Reference Range Interpretation Comments Chloride Lvl (test code = Chloride Lvl) 107 95-109 [place] 454363-02-22 13:17:00 Test Item Value Reference Range Interpretation Comments CO2 (test code = CO2) 26 24-32 [place] 454363-02-22 13:17:00 Test Item Value Reference Range Interpretation Comments Calcium Lvl (test code = Calcium Lvl) 8.1 8.5-10.5 [place] 454363-02-22 13:17:00 Test Item Value Reference Range Interpretation Comments AGAP (test code = AGAP) 10.7 10.0-20.0 [place] 454363-02-22 13:17:00 Test Item Value Reference Range Interpretation Comments eGFR (test code = eGFR) 24 [place] 454363-02-22 13:17:00 Test Item Value Reference Range Interpretation Comments Magnesium Lvl (test code = Magnesium 2.7 1.8-2.4 Lvl) [place] 454363-02-22 13:17:00 Test Item Value Reference Range Interpretation Comments Phosphorus (test code = Phosphorus) 3.9 2.5-4.5 [place] [address]-02-22 13:17:00 Test Item Value Reference Range Interpretation Comments Glucose Lvl (test code = Glucose Lvl) 65 70-99 [place] [address]-02-22 13:17:00 Test Item Value Reference Range Interpretation Comments BUN (test code = BUN) 39 7-22 [place] [address]-02-22 13:17:00 Test Item Value Reference Range Interpretation Comments Creatinine Lvl (test code = Creatinine 2.03 0.50-1.40 Lvl) [place] 711343-02-22 13:17:00 Test Item Value Reference Range Interpretation Comments Sodium Lvl (test code = Sodium Lvl) 139 135-145 [place] [address]-02-22 13:17:00 Test Item Value Reference Range Interpretation Comments Potassium Lvl (test code = Potassium 4.7 3.5-5.1 Lvl) [place] 711343-02-22 13:17:00 Test Item Value Reference Range Interpretation Comments Chloride Lvl (test code = Chloride Lvl) 107 95-109 [place] [address]-02-22 13:17:00 Test Item Value Reference Range Interpretation Comments CO2 (test code = CO2) 26 24-32 [place] 711343-02-22 13:17:00 Test Item Value Reference Range Interpretation Comments Calcium Lvl (test code = Calcium Lvl) 8.1 8.5-10.5 [place] [address]-02-22 13:17:00 Test Item Value Reference Range Interpretation Comments AGAP (test code = AGAP) 10.7 10.0-20.0 [place] 711343-02-22 13:17:00 Test Item Value Reference Range Interpretation Comments eGFR (test code = eGFR) 24 [place] 711343-02-22 13:17:00 Test Item Value Reference Range Interpretation Comments Ca Ion WB (test code = Ca Ion WB) 1.06 1.05-1.25 [place] 711343-02-22 13:17:00 Test Item Value Reference Range Interpretation Comments Ca Ion at pH 7.4 WB (test code = Ca Ion 1.03 1.05-1.25 at pH 7.4 WB) [facility]XDT[facility]NAHLK7395-[facility]21 13:17:00 Test Item Value Reference Range Interpretation Comments Magnesium Lvl (test code = Magnesium 2.7 1.8-2.4 Lvl) [place] 711343-02-22 13:17:00 Test Item Value Reference Range Interpretation Comments Phosphorus (test code = Phosphorus) 3.9 2.5-4.5 [place] 633383-02-22 13:17:00 Test Item Value Reference Range Interpretation Comments Segs (test code = Segs) 54.4 45.0-75.0 [place] 633383-02-22 13:17:00 Test Item Value Reference Range Interpretation Comments Lymphocytes (test code = Lymphocytes) 29.3 20.0-40.0 [place] 633383-02-22 13:17:00 Test Item Value Reference Range Interpretation Comments Monocytes (test code = Monocytes) 10.5 2.0-12.0 [place] 633383-02-22 13:17:00 Test Item Value Reference Range Interpretation Comments Eosinophils (test code = 5.0 See_Comment [A utomated message] The Eosinophils) system which ge nerated this result tra nsmitted reference range : <=4.0. The reference r christiano was not used to int erpret this result as normal/abnormal . [place] [address]-02-22 13:17:00 Test Item Value Reference Range Interpretation Comments Basophils (test code = 0.8 See_Comment [Aut omated message] The Basophils) system which ge nerated this result tra nsmitted reference range : <=1.0. The reference r christiano was not used to int erpret this result as normal/abnormal . [place] 633383-02-22 13:17:00 Test Item Value Reference Range Interpretation Comments Neutrophils # (test code = Neutrophils 4.1 1.5-8.1 #) [facility] HospitalFlrweprNCYSMUOXXJ5229-21-25 13:17:00 Test Item Value Reference Range Interpretation Comments Lymphocytes # (test code = Lymphocytes 2.2 1.0-5.5 #) [place] 633383-02-22 13:17:00 Test Item Value Reference Range Interpretation Comments Monocytes # (test code 0.8 See_Comment [Aut omated message] The = Monocytes #) system which generated this result tra nsmitted reference range : <=0.8. The reference r chrsitiano was not used to int erpret this result as normal/abnormal . [place] 633383-02-22 13:17:00 Test Item Value Reference Range Interpretation Comments Eosinophils # (test code 0.4 See_Comment [A utomated message] The = Eosinophils #) system whic h generated this result tra nsmitted reference range : <=0.5. The reference r christiano was not used to int erpret this result as normal/abnormal . [facility] HospitalQqixdvqYZZIVYFRYM8647-59-75 13:17:00 Test Item Value Reference Range Interpretation Comments Basophils # (test code 0.1 See_Comment [Aut omated message] The = Basophils #) system which generated this result tra nsmitted reference range : <=0.2. The reference r christiano was not used to int erpret this result as normal/abnormal . [facility] HospitalQugcbdgUJZDWUFOXT7542-50-88 13:17:00 Test Item Value Reference Range Interpretation Comments WBC (test code = WBC) 7.5 3.7-10.4 [place] 633383-02-22 13:17:00 Test Item Value Reference Range Interpretation Comments RBC (test code = RBC) 3.30 4.20-5.40 [place] 633383-02-22 13:17:00 Test Item Value Reference Range Interpretation Comments Hgb (test code = Hgb) 9.9 12.0-16.0 [place] 633383-02-22 13:17:00 Test Item Value Reference Range Interpretation Comments Hct (test code = Hct) 30.3 36.0-48.0 [place] [address]-02-22 13:17:00 Test Item Value Reference Range Interpretation Comments MCV (test code = MCV) 91.8 80.0-98.0 [place] [address]-02-22 13:17:00 Test Item Value Reference Range Interpretation Comments MCH (test code = MCH) 30.0 pg 27.0-31.0 [place] [address]-02-22 13:17:00 Test Item Value Reference Range Interpretation Comments MCHC (test code = MCHC) 32.7 32.0-36.0 [place] [address]-02-22 13:17:00 Test Item Value Reference Range Interpretation Comments RDW (test code = RDW) 14.4 11.5-14.5 [place] [address]-02-22 13:17:00 Test Item Value Reference Range Interpretation Comments Platelet (test code = Platelet) 136 133-450 [place] 633383-02-22 13:17:00 Test Item Value Reference Range Interpretation Comments MPV (test code = MPV) 8.7 7.4-10.4 [place] [address]-02-22 13:17:00 Test Item Value Reference Range Interpretation Comments Segs (test code = Segs) 54.4 45.0-75.0 [place] [address]-02-22 13:17:00 Test Item Value Reference Range Interpretation Comments Lymphocytes (test code = Lymphocytes) 29.3 20.0-40.0 [place] [address]-02-22 13:17:00 Test Item Value Reference Range Interpretation Comments Monocytes (test code = Monocytes) 10.5 2.0-12.0 [place] [address]-02-22 13:17:00 Test Item Value Reference Range Interpretation Comments Eosinophils (test code = 5.0 See_Comment [A utomated message] The Eosinophils) system which ge nerated this result tra nsmitted reference range : <=4.0. The reference r christiano was not used to int erpret this result as normal/abnormal . [place] [address]-02-22 13:17:00 Test Item Value Reference Range Interpretation Comments Basophils (test code = 0.8 See_Comment [Aut omated message] The Basophils) system which ge nerated this result tra nsmitted reference range : <=1.0. The reference r christiano was not used to int erpret this result as normal/abnormal . [place] [address]383-02-22 13:17:00 Test Item Value Reference Range Interpretation Comments Neutrophils # (test code = Neutrophils 4.1 1.5-8.1 #) [place] [address]383-02-22 13:17:00 Test Item Value Reference Range Interpretation Comments Lymphocytes # (test code = Lymphocytes 2.2 1.0-5.5 #) [place] [address]-02-22 13:17:00 Test Item Value Reference Range Interpretation Comments Monocytes # (test code 0.8 See_Comment [Aut omated message] The = Monocytes #) system which generated this result tra nsmitted reference range : <=0.8. The reference r christiano was not used to int erpret this result as normal/abnormal . [place] [address]-22 13:17:00 Test Item Value Reference Range Interpretation Comments Eosinophils # (test code 0.4 See_Comment [A utomated message] The = Eosinophils #) system whic h generated this result tra nsmitted reference range : <=0.5. The reference r christiano was not used to int erpret this result as normal/abnormal . [place] 633383-02-22 13:17:00 Test Item Value Reference Range Interpretation Comments Basophils # (test code 0.1 See_Comment [Aut omated message] The = Basophils #) system which generated this result tra nsmitted reference range : <=0.2. The reference r christiano was not used to int erpret this result as normal/abnormal . [place] 633383-02-22 13:17:00 Test Item Value Reference Range Interpretation Comments WBC (test code = WBC) 7.5 3.7-10.4 [place] [address]-02-22 13:17:00 Test Item Value Reference Range Interpretation Comments RBC (test code = RBC) 3.30 4.20-5.40 [place] [address]-02-22 13:17:00 Test Item Value Reference Range Interpretation Comments Hgb (test code = Hgb) 9.9 12.0-16.0 [place] [address]-02-22 13:17:00 Test Item Value Reference Range Interpretation Comments Hct (test code = Hct) 30.3 36.0-48.0 [place] 633383-02-22 13:17:00 Test Item Value Reference Range Interpretation Comments MCV (test code = MCV) 91.8 80.0-98.0 [place] 633383-02-22 13:17:00 Test Item Value Reference Range Interpretation Comments MCH (test code = MCH) 30.0 pg 27.0-31.0 [facility]fbosMCDUEQKNIG6260-94-65 13:17:00 Test Item Value Reference Range Interpretation Comments MCHC (test code = MCHC) 32.7 32.0-36.0 [facility] HospitalQkirecaVCXTFDCYTK3664-68-28 13:17:00 Test Item Value Reference Range Interpretation Comments RDW (test code = RDW) 14.4 11.5-14.5 [place] 633383-02-22 13:17:00 Test Item Value Reference Range Interpretation Comments Platelet (test code = Platelet) 136 133-450 [facility] HospitalJwxbbuhJSPMFNFUEG6475-89-56 13:17:00 Test Item Value Reference Range Interpretation Comments MPV (test code = MPV) 8.7 7.4-10.4 [facility]2023-02-22 13:17:00 Test Item Value Reference Range Interpretation Comments Ca Ion WB (test code = Ca Ion WB) 1.06 1.05-1.25 [facility]2023-02-22 13:17:00 Test Item Value Reference Range Interpretation Comments Ca Ion at pH 7.4 WB (test code = Ca Ion 1.03 1.05-1.25 at pH 7.4 WB) [facility]2023-02-22 13:17:00 Test Item Value Reference Range Interpretation Comments Glucose Lvl (test code = Glucose Lvl) 65 70-99 [facility]2023-02-22 13:17:00 Test Item Value Reference Range Interpretation Comments BUN (test code = BUN) 39 7-22 [facility]2023-02-22 13:17:00 Test Item Value Reference Range Interpretation Comments Creatinine Lvl (test code = Creatinine 2.03 0.50-1.40 Lvl) [facility]2023-02-22 13:17:00 Test Item Value Reference Range Interpretation Comments Sodium Lvl (test code = Sodium Lvl) 139 135-145 [place] 454363-02-22 13:17:00 Test Item Value Reference Range Interpretation Comments Potassium Lvl (test code = Potassium 4.7 3.5-5.1 Lvl) [place] 454363-02-22 13:17:00 Test Item Value Reference Range Interpretation Comments Chloride Lvl (test code = Chloride Lvl) 107 95-109 [place] 454363-02-22 13:17:00 Test Item Value Reference Range Interpretation Comments CO2 (test code = CO2) 26 24-32 [place] 454363-02-22 13:17:00 Test Item Value Reference Range Interpretation Comments Calcium Lvl (test code = Calcium Lvl) 8.1 8.5-10.5 [place] 454363-02-22 13:17:00 Test Item Value Reference Range Interpretation Comments AGAP (test code = AGAP) 10.7 10.0-20.0 [place] 454363-02-22 13:17:00 Test Item Value Reference Range Interpretation Comments eGFR (test code = eGFR) 24 [place] 454363-02-22 13:17:00 Test Item Value Reference Range Interpretation Comments Magnesium Lvl (test code = Magnesium 2.7 1.8-2.4 Lvl) [place] 454363-02-22 13:17:00 Test Item Value Reference Range Interpretation Comments Phosphorus (test code = Phosphorus) 3.9 2.5-4.5 [place] 711343-02-22 13:17:00 Test Item Value Reference Range Interpretation Comments Glucose Lvl (test code = Glucose Lvl) 65 70-99 [place] [address]-02-22 13:17:00 Test Item Value Reference Range Interpretation Comments BUN (test code = BUN) 39 7-22 [place] [address]-02-22 13:17:00 Test Item Value Reference Range Interpretation Comments Creatinine Lvl (test code = Creatinine 2.03 0.50-1.40 Lvl) [place] 711343-02-22 13:17:00 Test Item Value Reference Range Interpretation Comments Sodium Lvl (test code = Sodium Lvl) 139 135-145 [place] 711343-02-22 13:17:00 Test Item Value Reference Range Interpretation Comments Potassium Lvl (test code = Potassium 4.7 3.5-5.1 Lvl) [facility]hfEFOXEFPLC216[facility] 13:17:00 Test Item Value Reference Range Interpretation Comments Chloride Lvl (test code = Chloride Lvl) 107 95-109 [place] 711343-02-22 13:17:00 Test Item Value Reference Range Interpretation Comments CO2 (test code = CO2) 26 24-32 [place] 711343-02-22 13:17:00 Test Item Value Reference Range Interpretation Comments Calcium Lvl (test code = Calcium Lvl) 8.1 8.5-10.5 [place] 711343-02-22 13:17:00 Test Item Value Reference Range Interpretation Comments AGAP (test code = AGAP) 10.7 10.0-20.0 [facility]iscoDwrfjdpMBBOFDCTT9465-00-93 13:17:00 Test Item Value Reference Range Interpretation Comments eGFR (test code = eGFR) 24 [facility]iscoXqaskutZEKIPXJUN5097-19-67 13:17:00 Test Item Value Reference Range Interpretation Comments Ca Ion WB (test code = Ca Ion WB) 1.06 1.05-1.25 [place] 711343-02-22 13:17:00 Test Item Value Reference Range Interpretation Comments Ca Ion at pH 7.4 WB (test code = Ca Ion 1.03 1.05-1.25 at pH 7.4 WB) [facility]iscoYsjreudXXMHXSOCR6029-99-27 13:17:00 Test Item Value Reference Range Interpretation Comments Magnesium Lvl (test code = Magnesium 2.7 1.8-2.4 Lvl) [facility]iscoBrpmyhpCERWALHCG2335-06-81 13:17:00 Test Item Value Reference Range Interpretation Comments Phosphorus (test code = Phosphorus) 3.9 2.5-4.5 [facility] HospitalFmylrrjBIQFWWVRQV1908-11-13 13:17:00 Test Item Value Reference Range Interpretation Comments Segs (test code = Segs) 54.4 45.0-75.0 [place] 633383-02-22 13:17:00 Test Item Value Reference Range Interpretation Comments Lymphocytes (test code = Lymphocytes) 29.3 20.0-40.0 [place] 633383-02-22 13:17:00 Test Item Value Reference Range Interpretation Comments Monocytes (test code = Monocytes) 10.5 2.0-12.0 [place] [address]-02-22 13:17:00 Test Item Value Reference Range Interpretation Comments Eosinophils (test code = 5.0 See_Comment [A utomated message] The Eosinophils) system which ge nerated this result tra nsmitted reference range : <=4.0. The reference r christiano was not used to int erpret this result as normal/abnormal . [place] 633383-02-22 13:17:00 Test Item Value Reference Range Interpretation Comments Basophils (test code = 0.8 See_Comment [Aut omated message] The Basophils) system which ge nerated this result tra nsmitted reference range : <=1.0. The reference r christiano was not used to int erpret this result as normal/abnormal . [place] [address]-22 13:17:00 Test Item Value Reference Range Interpretation Comments Neutrophils # (test code = Neutrophils 4.1 1.5-8.1 #) [place] [address]-02-22 13:17:00 Test Item Value Reference Range Interpretation Comments Lymphocytes # (test code = Lymphocytes 2.2 1.0-5.5 #) [place] [address]-02-22 13:17:00 Test Item Value Reference Range Interpretation Comments Monocytes # (test code 0.8 See_Comment [Aut omated message] The = Monocytes #) system which generated this result tra nsmitted reference range : <=0.8. The reference r christiano was not used to int erpret this result as normal/abnormal . [place] [address]-22 13:17:00 Test Item Value Reference Range Interpretation Comments Eosinophils # (test code 0.4 See_Comment [A utomated message] The = Eosinophils #) system whic h generated this result tra nsmitted reference range : <=0.5. The reference r christiano was not used to int erpret this result as normal/abnormal . [place] [address]-02-22 13:17:00 Test Item Value Reference Range Interpretation Comments Basophils # (test code 0.1 See_Comment [Aut omated message] The = Basophils #) system which generated this result tra nsmitted reference range : <=0.2. The reference r christiano was not used to int erpret this result as normal/abnormal . [facility] HospitalAjoimzfIEMZSNGZPW2011-28-99 13:17:00 Test Item Value Reference Range Interpretation Comments WBC (test code = WBC) 7.5 3.7-10.4 [facility] HospitalHfjvigaSKIARNXHZN1858-56-74 13:17:00 Test Item Value Reference Range Interpretation Comments RBC (test code = RBC) 3.30 4.20-5.40 [place] 633383-02-22 13:17:00 Test Item Value Reference Range Interpretation Comments Hgb (test code = Hgb) 9.9 12.0-16.0 [facility] HospitalXykogvgFQLXRLUPTB2116-76-06 13:17:00 Test Item Value Reference Range Interpretation Comments Hct (test code = Hct) 30.3 36.0-48.0 [facility] HospitalLqfrhzkJEWPMATYNI0933-82-62 13:17:00 Test Item Value Reference Range Interpretation Comments MCV (test code = MCV) 91.8 80.0-98.0 [facility] HospitalJnzasncVJWSMMIDIA8458-58-40 13:17:00 Test Item Value Reference Range Interpretation Comments MCH (test code = MCH) 30.0 pg 27.0-31.0 [facility] HospitalGhngjpvWGWHMYWOKZ3346-08-66 13:17:00 Test Item Value Reference Range Interpretation Comments MCHC (test code = MCHC) 32.7 32.0-36.0 [facility] HospitalLtgjgvoKNGJVWUWWU4772-17-26 13:17:00 Test Item Value Reference Range Interpretation Comments RDW (test code = RDW) 14.4 11.5-14.5 [facility] HospitalLkqczzlAGBTLDNLBU8705-28-17 13:17:00 Test Item Value Reference Range Interpretation Comments Platelet (test code = Platelet) 136 133-450 [facility] HospitalOwfqavbHPWLIVNDMJ0678-38-29 13:17:00 Test Item Value Reference Range Interpretation Comments MPV (test code = MPV) 8.7 7.4-10.4 [facility] HospitalHsujbgxJBYQYTJGCM7231-09-67 13:17:00 Test Item Value Reference Range Interpretation Comments Segs (test code = Segs) 54.4 45.0-75.0 [facility] HospitalJokzjevSVTKCKXYIS5149-26-50 13:17:00 Test Item Value Reference Range Interpretation Comments Lymphocytes (test code = Lymphocytes) 29.3 20.0-40.0 [place] [address]-02-22 13:17:00 Test Item Value Reference Range Interpretation Comments Monocytes (test code = Monocytes) 10.5 2.0-12.0 [place] [address]-02-22 13:17:00 Test Item Value Reference Range Interpretation Comments Eosinophils (test code = 5.0 See_Comment [A utomated message] The Eosinophils) system which ge nerated this result tra nsmitted reference range : <=4.0. The reference r christiano was not used to int erpret this result as normal/abnormal . [place] [address]-22 13:17:00 Test Item Value Reference Range Interpretation Comments Basophils (test code = 0.8 See_Comment [Aut omated message] The Basophils) system which ge nerated this result tra nsmitted reference range : <=1.0. The reference r christiano was not used to int erpret this result as normal/abnormal . [place] [address]-22 13:17:00 Test Item Value Reference Range Interpretation Comments Neutrophils # (test code = Neutrophils 4.1 1.5-8.1 #) [place] [address]-02-22 13:17:00 Test Item Value Reference Range Interpretation Comments Lymphocytes # (test code = Lymphocytes 2.2 1.0-5.5 #) [place] [address]-02-22 13:17:00 Test Item Value Reference Range Interpretation Comments Monocytes # (test code 0.8 See_Comment [Aut omated message] The = Monocytes #) system which generated this result tra nsmitted reference range : <=0.8. The reference r christiano was not used to int erpret this result as normal/abnormal . [place] [address]-22 13:17:00 Test Item Value Reference Range Interpretation Comments Eosinophils # (test code 0.4 See_Comment [A utomated message] The = Eosinophils #) system whic h generated this result tra nsmitted reference range : <=0.5. The reference r christiano was not used to int erpret this result as normal/abnormal . [place] [address]-22 13:17:00 Test Item Value Reference Range Interpretation Comments Basophils # (test code 0.1 See_Comment [Aut omated message] The = Basophils #) system which generated this result tra nsmitted reference range : <=0.2. The reference r christiano was not used to int erpret this result as normal/abnormal . [place] 633383-02-22 13:17:00 Test Item Value Reference Range Interpretation Comments WBC (test code = WBC) 7.5 3.7-10.4 [place] 633383-02-22 13:17:00 Test Item Value Reference Range Interpretation Comments RBC (test code = RBC) 3.30 4.20-5.40 [place] 633383-02-22 13:17:00 Test Item Value Reference Range Interpretation Comments Hgb (test code = Hgb) 9.9 12.0-16.0 [place] 633383-02-22 13:17:00 Test Item Value Reference Range Interpretation Comments Hct (test code = Hct) 30.3 36.0-48.0 [place] 633383-02-22 13:17:00 Test Item Value Reference Range Interpretation Comments MCV (test code = MCV) 91.8 80.0-98.0 [place] 633383-02-22 13:17:00 Test Item Value Reference Range Interpretation Comments MCH (test code = MCH) 30.0 pg 27.0-31.0 [facility] HospitalOphxlbsRZAIEMLXBC7459-01-23 13:17:00 Test Item Value Reference Range Interpretation Comments MCHC (test code = MCHC) 32.7 32.0-36.0 [place] 633383-02-22 13:17:00 Test Item Value Reference Range Interpretation Comments RDW (test code = RDW) 14.4 11.5-14.5 [place] 633383-02-22 13:17:00 Test Item Value Reference Range Interpretation Comments Platelet (test code = Platelet) 136 133-450 [facility] HospitalEqtzuooWZPOPEUPOA0416-66-84 13:17:00 Test Item Value Reference Range Interpretation Comments MPV (test code = MPV) 8.7 7.4-10.4 [facility]PARATHYROID IMWSCDF3476-68-69 13:17:00 Test Item Value Reference Range Interpretation Comments Ca Ion WB (test code = Ca Ion WB) 1.06 1.05-1.25 [facility] [id number] 13:17:00 Test Item Value Reference Range Interpretation Comments Ca Ion at pH 7.4 WB (test code = Ca Ion 1.03 1.05-1.25 at pH 7.4 WB) [facility]dbyfgrYNOQQHWHW7497-56-43 15:39:00 Test Item Value Reference Range Interpretation Comments U Amph Scr (test code Negative *NA*(11/21/22 = U Amph Scr) 9:39 AM) [facility] HospitalFllnsgjVYJUUGOML3492-02-94 15:39:00 Test Item Value Reference Range Interpretation Comments U Analilia Scr (test code Positive *ABN*(11/21/22 = U Analilia Scr) 9:39 AM) [facility] HospitalXpflsciZGAXIZHMK0498-46-39 15:39:00 Test Item Value Reference Range Interpretation Comments U Benzodiaz Scr (test Negative *NA*(11/21/22 code = U Benzodiaz Scr) 9:39 AM) [facility] HospitalBhmbqliOWAOBSLCW6309-25-48 15:39:00 Test Item Value Reference Range Interpretation Comments U Cocaine Scr (test Negative *NA*(11/21/22 code = U Cocaine Scr) 9:39 AM) [facility] HospitalWexyqozTTTGBHPRX8629-38-63 15:39:00 Test Item Value Reference Range Interpretation Comments U Cannab Scr (test Negative *NA*(11/21/22 code = U Cannab Scr) 9:39 AM) [facility] HospitalOffujgjOTBICRSOV2199-26-36 15:39:00 Test Item Value Reference Range Interpretation Comments U Opiate Scr (test Positive *ABN*(11/21/22 code = U Opiate Scr) 9:39 AM) [facility] HospitalCrfezlcGTUOQAHRX6926-94-21 15:39:00 Test Item Value Reference Range Interpretation Comments U Phencyclidine Scr (test Negative code = U Phencyclidine *NA*(11/21/22 9:39 Scr) AM) [facility] HospitalIphfqfdDUTPRBZXD1043-66-50 15:39:00 Test Item Value Reference Range Interpretation Comments UDS Note (test code = See Note (11/21/22 9:39 UDS Note) AM) [facility] HospitalUtpknokDTOYEZADUK5922-85-42 15:39:00 Test Item Value Reference Range Interpretation Comments Coronavirus (COVID-19) Not Detected (11/21/22 JONATHAN (test code = 9:39 AM) Coronavirus (COVID-19) JONATHAN) [facility] AND [id number] 15:39:00 Test Item Value Reference Range Interpretation Comments UA Color (test code = Light Yellow UA Color) *NA*(11/21/22 9:39 AM) [facility] AND [id number] 15:39:00 Test Item Value Reference Range Interpretation Comments UA Turbidity (test code = Clear (11/21/22 9:39 UA Turbidity) AM) [facility] AND [id number] 15:39:00 Test Item Value Reference Range Interpretation Comments UA Spec Grav (test code = UA Spec 1.014 1 Grav) [facility] AND [id number] 15:39:00 Test Item Value Reference Range Interpretation Comments UA pH (test code = UA pH) 6.0 1 5.0-8.0 [facility] AND [id number] 15:39:00 Test Item Value Reference Range Interpretation Comments UA Protein (test code = UA Protein) 30 mg/dL [facility] AND [id number] 15:39:00 Test Item Value Reference Range Interpretation Comments UA Glucose (test code = UA Negative mg/dL Glucose) [facility] AND [id number] 15:39:00 Test Item Value Reference Range Interpretation Comments UA Ketones (test code = UA Negative mg/dL Ketones) [facility] AND [id number] 15:39:00 Test Item Value Reference Range Interpretation Comments UA Bili (test code = Negative *NA*(11/21/22 UA Bili) 9:39 AM) [facility] AND [id number] 15:39:00 Test Item Value Reference Range Interpretation Comments UA Blood (test code = Negative (11/21/22 9:39 UA Blood) AM) [facility] AND [id number] 15:39:00 Test Item Value Reference Range Interpretation Comments UA Urobilinogen (test code = UA no gt 0.1-1.0 Urobilinogen) [facility] AND [id number] 15:39:00 Test Item Value Reference Range Interpretation Comments UA Nitrite (test code Negative (11/21/22 9:39 = UA Nitrite) AM) [facility] AND [id number] 15:39:00 Test Item Value Reference Range Interpretation Comments UA Leuk Est (test Negative (11/21/22 9:39 code = UA Leuk Est) AM) [facility] [id number] 15:39:00 Test Item Value Reference Range Interpretation Comments UA Sq Epi (test code = UA Sq Occasional /LPF Epi) [facility] [id number] 15:39:00 Test Item Value Reference Range Interpretation Comments UA WBC (test code = no gt See_Comment [Automa sheba message] The UA WBC) system which ge nerated this result transmit sheba reference range : <=5. The reference range was not used to interpr et this result as edy l/abnormal. [facility] [id number] 15:39:00 Test Item Value Reference Range Interpretation Comments UA RBC (test code = no gt See_Comment [Automa sheba message] The UA RBC) system which ge nerated this result transmit sheba reference range : <=2. The reference range was not used to interpr et this result as edy l/abnormal. [facility]nmgydlPMBLAUSGC1085-68-58 15:39:00 Test Item Value Reference Range Interpretation Comments U Amph Scr (test code Negative *NA*(11/21/22 = U Amph Scr) 9:39 AM) [facility]ObltgmkKOBXBQAJN1496-30-37 15:39:00 Test Item Value Reference Range Interpretation Comments U Analilia Scr (test code Positive *ABN*(11/21/22 = U Analilia Scr) 9:39 AM) [facility]iscoYthxucuPZMSPTKIB5910-62-14 15:39:00 Test Item Value Reference Range Interpretation Comments U Benzodiaz Scr (test Negative *NA*(11/21/22 code = U Benzodiaz Scr) 9:39 AM) [facility]iscoVzhckbbUGSWYMDRJ9294-92-36 15:39:00 Test Item Value Reference Range Interpretation Comments U Cocaine Scr (test Negative *NA*(11/21/22 code = U Cocaine Scr) 9:39 AM) [facility]iscoGuvfindCSFNHIEVB1537-44-51 15:39:00 Test Item Value Reference Range Interpretation Comments U Cannab Scr (test Negative *NA*(11/21/22 code = U Cannab Scr) 9:39 AM) [facility]iscoWkdquqgWNXLAIUUX2738-65-04 15:39:00 Test Item Value Reference Range Interpretation Comments U Opiate Scr (test Positive *ABN*(11/21/22 code = U Opiate Scr) 9:39 AM) [facility] GrjfmgvORWTGRPGE4707-75-57 15:39:00 Test Item Value Reference Range Interpretation Comments U Phencyclidine Scr (test Negative code = U Phencyclidine *NA*(11/21/22 9:39 Scr) AM) [facility] VwkwamrJBIGQBBNE8945-49-65 15:39:00 Test Item Value Reference Range Interpretation Comments UDS Note (test code = See Note (11/21/22 9:39 UDS Note) AM) [facility] OqzikmaJMFFNPDMVP9795-53-93 15:39:00 Test Item Value Reference Range Interpretation Comments Coronavirus (COVID-19) Not Detected (11/21/22 JONATHAN (test code = 9:39 AM) Coronavirus (COVID-19) JONATHAN) [facility] AND [id number] 15:39:00 Test Item Value Reference Range Interpretation Comments UA Color (test code = Light Yellow UA Color) *NA*(11/21/22 9:39 AM) [facility] [id number] 15:39:00 Test Item Value Reference Range Interpretation Comments UA Turbidity (test code = Clear (11/21/22 9:39 UA Turbidity) AM) [facility] [id number] 15:39:00 Test Item Value Reference Range Interpretation Comments UA Spec Grav (test code = UA Spec 1.014 1 Grav) [facility] AND [id number] 15:39:00 Test Item Value Reference Range Interpretation Comments UA pH (test code = UA pH) 6.0 1 5.0-8.0 [facility] [id number] 15:39:00 Test Item Value Reference Range Interpretation Comments UA Protein (test code = UA Protein) 30 mg/dL [facility] [id number] 15:39:00 Test Item Value Reference Range Interpretation Comments UA Glucose (test code = UA Negative mg/dL Glucose) [facility] [id number] 15:39:00 Test Item Value Reference Range Interpretation Comments UA Ketones (test code = UA Negative mg/dL Ketones) [facility]annC[facility] [id number] 15:39:00 Test Item Value Reference Range Interpretation Comments UA Bili (test code = Negative *NA*(11/21/22 UA Bili) 9:39 AM) [facility] AND [id number] 15:39:00 Test Item Value Reference Range Interpretation Comments UA Blood (test code = Negative (11/21/22 9:39 UA Blood) AM) [facility] [id number] 15:39:00 Test Item Value Reference Range Interpretation Comments UA Urobilinogen (test code = UA no gt 0.1-1.0 Urobilinogen) [facility] [id number] 15:39:00 Test Item Value Reference Range Interpretation Comments UA Nitrite (test code Negative (11/21/22 9:39 = UA Nitrite) AM) [facility] [id number] 15:39:00 Test Item Value Reference Range Interpretation Comments UA Leuk Est (test Negative (11/21/22 9:39 code = UA Leuk Est) AM) [facility] AND [id number] 15:39:00 Test Item Value Reference Range Interpretation Comments UA Sq Epi (test code = UA Sq Occasional /LPF Epi) [facility] AND [id number] 15:39:00 Test Item Value Reference Range Interpretation Comments UA WBC (test code = no gt See_Comment [Automa sheba message] The UA WBC) system which ge nerated this result transmit sheba reference range : <=5. The reference range was not used to interpr et this result as edy l/abnormal. [facility] [id number] 15:39:00 Test Item Value Reference Range Interpretation Comments UA RBC (test code = no gt See_Comment [Automa sheba message] The UA RBC) system which ge nerated this result transmit sheba reference range : <=2. The reference range was not used to interpr et this result as edy l/abnormal. [id number] 15:39:00 Test Item Value Reference Range Interpretation Comments U Amph Scr (test code Negative *NA*(11/21/22 = U Amph Scr) 9:39 AM) [id number] 15:39:00 Test Item Value Reference Range Interpretation Comments U Analilia Scr (test code Positive *ABN*(11/21/22 = U Analilia Scr) 9:39 AM) [facility] [id number] 15:39:00 Test Item Value Reference Range Interpretation Comments U Benzodiaz Scr (test Negative *NA*(11/21/22 code = U Benzodiaz Scr) 9:39 AM) [facility] [id number] 15:39:00 Test Item Value Reference Range Interpretation Comments U Cocaine Scr (test Negative *NA*(11/21/22 code = U Cocaine Scr) 9:39 AM) [facility] [id number] 15:39:00 Test Item Value Reference Range Interpretation Comments U Cannab Scr (test Negative *NA*(11/21/22 code = U Cannab Scr) 9:39 AM) [facility] [id number] 15:39:00 Test Item Value Reference Range Interpretation Comments U Opiate Scr (test Positive *ABN*(11/21/22 code = U Opiate Scr) 9:39 AM) [facility] [id number] 15:39:00 Test Item Value Reference Range Interpretation Comments U Phencyclidine Scr (test Negative code = U Phencyclidine *NA*(11/21/22 9:39 Scr) AM) [facility] [id number] 15:39:00 Test Item Value Reference Range Interpretation Comments UDS Note (test code = See Note (11/21/22 9:39 UDS Note) AM) [facility] [id number] 15:39:00 Test Item Value Reference Range Interpretation Comments U Amph Scr (test code Negative *NA*(11/21/22 = U Amph Scr) 9:39 AM) [facility] [id number] 15:39:00 Test Item Value Reference Range Interpretation Comments U Analilia Scr (test code Positive *ABN*(11/21/22 = U Analilia Scr) 9:39 AM) [facility] [id number] 15:39:00 Test Item Value Reference Range Interpretation Comments U Benzodiaz Scr (test Negative *NA*(11/21/22 code = U Benzodiaz Scr) 9:39 AM) [facility] [id number] 15:39:00 Test Item Value Reference Range Interpretation Comments U Cocaine Scr (test Negative *NA*(11/21/22 code = U Cocaine Scr) 9:39 AM) [facility] [id number] 15:39:00 Test Item Value Reference Range Interpretation Comments U Cannab Scr (test Negative *NA*(11/21/22 code = U Cannab Scr) 9:39 AM) [facility] [id number] 15:39:00 Test Item Value Reference Range Interpretation Comments U Opiate Scr (test Positive *ABN*(11/21/22 code = U Opiate Scr) 9:39 AM) [facility] [id number] 15:39:00 Test Item Value Reference Range Interpretation Comments U Phencyclidine Scr (test Negative code = U Phencyclidine *NA*(11/21/22 9:39 Scr) AM) [facility] [id number] 15:39:00 Test Item Value Reference Range Interpretation Comments UDS Note (test code = See Note (11/21/22 9:39 UDS Note) AM) [facility] [id number] 15:39:00 Test Item Value Reference Range Interpretation Comments Coronavirus (COVID-19) Not Detected (11/21/22 JONATHAN (test code = 9:39 AM) Coronavirus (COVID-19) JONATHAN) [facility] [id number] 15:39:00 Test Item Value Reference Range Interpretation Comments Coronavirus (COVID-19) Not Detected (11/21/22 JONATHAN (test code = 9:39 AM) Coronavirus (COVID-19) JONATHAN) [facility] [id number] 15:39:00 Test Item Value Reference Range Interpretation Comments UA Color (test code = Light Yellow UA Color) *NA*(11/21/22 9:39 AM) [facility] [id number] 15:39:00 Test Item Value Reference Range Interpretation Comments UA Turbidity (test code = Clear (11/21/22 9:39 UA Turbidity) AM) [facility] [id number] 15:39:00 Test Item Value Reference Range Interpretation Comments UA Spec Grav (test code = UA Spec 1.014 1 Grav) [facility] [id number] 15:39:00 Test Item Value Reference Range Interpretation Comments UA pH (test code = UA pH) 6.0 1 5.0-8.0 [facility] [id number] 15:39:00 Test Item Value Reference Range Interpretation Comments UA Protein (test code = UA Protein) 30 mg/dL [facility] AND [id number] 15:39:00 Test Item Value Reference Range Interpretation Comments UA Glucose (test code = UA Negative mg/dL Glucose) [facility] AND [id number] 15:39:00 Test Item Value Reference Range Interpretation Comments UA Ketones (test code = UA Negative mg/dL Ketones) [facility] AND [id number] 15:39:00 Test Item Value Reference Range Interpretation Comments UA Bili (test code = Negative *NA*(11/21/22 UA Bili) 9:39 AM) [facility] AND [id number] 15:39:00 Test Item Value Reference Range Interpretation Comments UA Blood (test code = Negative (11/21/22 9:39 UA Blood) AM) [facility] AND [id number] 15:39:00 Test Item Value Reference Range Interpretation Comments UA Urobilinogen (test code = UA no gt 0.1-1.0 Urobilinogen) [facility] AND [id number] 15:39:00 Test Item Value Reference Range Interpretation Comments UA Nitrite (test code Negative (11/21/22 9:39 = UA Nitrite) AM) [facility] AND [id number] 15:39:00 Test Item Value Reference Range Interpretation Comments UA Leuk Est (test Negative (11/21/22 9:39 code = UA Leuk Est) AM) [facility] AND [id number] 15:39:00 Test Item Value Reference Range Interpretation Comments UA Sq Epi (test code = UA Sq Occasional /LPF Epi) [facility] AND [id number] 15:39:00 Test Item Value Reference Range Interpretation Comments UA WBC (test code = no gt See_Comment [Automa sheba message] The UA WBC) system which ge nerated this result transmit sheba reference range : <=5. The reference range was not used to interpr et this result as edy l/abnormal. [facility] AND [id number] 15:39:00 Test Item Value Reference Range Interpretation Comments UA RBC (test code = no gt See_Comment [Automa sheba message] The UA RBC) system which ge nerated this result transmit sheba reference range : <=2. The reference range was not used to interpr et this result as edy l/abnormal. [facility] AND [id number] 15:39:00 Test Item Value Reference Range Interpretation Comments UA Color (test code = Light Yellow UA Color) *NA*(11/21/22 9:39 AM) [facility] AND [id number] 15:39:00 Test Item Value Reference Range Interpretation Comments UA Turbidity (test code = Clear (11/21/22 9:39 UA Turbidity) AM) [facility] AND [id number] 15:39:00 Test Item Value Reference Range Interpretation Comments UA Spec Grav (test code = UA Spec 1.014 1 Grav) [facility] AND [id number] 15:39:00 Test Item Value Reference Range Interpretation Comments UA pH (test code = UA pH) 6.0 1 5.0-8.0 [facility] AND [id number] 15:39:00 Test Item Value Reference Range Interpretation Comments UA Protein (test code = UA Protein) 30 mg/dL [facility] AND [id number] 15:39:00 Test Item Value Reference Range Interpretation Comments UA Glucose (test code = UA Negative mg/dL Glucose) [facility] AND [id number] 15:39:00 Test Item Value Reference Range Interpretation Comments UA Ketones (test code = UA Negative mg/dL Ketones) [facility] AND [id number] 15:39:00 Test Item Value Reference Range Interpretation Comments UA Bili (test code = Negative *NA*(11/21/22 UA Bili) 9:39 AM) [facility] AND [id number] 15:39:00 Test Item Value Reference Range Interpretation Comments UA Blood (test code = Negative (11/21/22 9:39 UA Blood) AM) [facility] AND [id number] 15:39:00 Test Item Value Reference Range Interpretation Comments UA Urobilinogen (test code = UA no gt 0.1-1.0 Urobilinogen) [facility] AND [id number] 15:39:00 Test Item Value Reference Range Interpretation Comments UA Nitrite (test code Negative (11/21/22 9:39 = UA Nitrite) AM) [facility] [id number] 15:39:00 Test Item Value Reference Range Interpretation Comments UA Leuk Est (test Negative (11/21/22 9:39 code = UA Leuk Est) AM) [facility] [id number] 15:39:00 Test Item Value Reference Range Interpretation Comments UA Sq Epi (test code = UA Sq Occasional /LPF Epi) [facility] [id number] 15:39:00 Test Item Value Reference Range Interpretation Comments UA WBC (test code = no gt See_Comment [Automa sheba message] The UA WBC) system which ge nerated this result transmit sheba reference range : <=5. The reference range was not used to interpr et this result as edy l/abnormal. [facility] [id number] 15:39:00 Test Item Value Reference Range Interpretation Comments UA RBC (test code = no gt See_Comment [Automa sheba message] The UA RBC) system which ge nerated this result transmit sheba reference range : <=2. The reference range was not used to interpr et this result as edy l/abnormal. [id number] 15:39:00 Test Item Value Reference Range Interpretation Comments U Amph Scr (test code Negative *NA*(11/21/22 = U Amph Scr) 9:39 AM) [id number] 15:39:00 Test Item Value Reference Range Interpretation Comments U Analilia Scr (test code Positive *ABN*(11/21/22 = U Analilia Scr) 9:39 AM) [id number] 15:39:00 Test Item Value Reference Range Interpretation Comments U Benzodiaz Scr (test Negative *NA*(11/21/22 code = U Benzodiaz Scr) 9:39 AM) [id number] 15:39:00 Test Item Value Reference Range Interpretation Comments U Cocaine Scr (test Negative *NA*(11/21/22 code = U Cocaine Scr) 9:39 AM) [id number] 15:39:00 Test Item Value Reference Range Interpretation Comments U Cannab Scr (test Negative *NA*(11/21/22 code = U Cannab Scr) 9:39 AM) [facility] [id number] 15:39:00 Test Item Value Reference Range Interpretation Comments U Opiate Scr (test Positive *ABN*(11/21/22 code = U Opiate Scr) 9:39 AM) [facility] [id number] 15:39:00 Test Item Value Reference Range Interpretation Comments U Phencyclidine Scr (test Negative code = U Phencyclidine *NA*(11/21/22 9:39 Scr) AM) [facility] [id number] 15:39:00 Test Item Value Reference Range Interpretation Comments UDS Note (test code = See Note (11/21/22 9:39 UDS Note) AM) [facility] [id number] 15:39:00 Test Item Value Reference Range Interpretation Comments U Amph Scr (test code Negative *NA*(11/21/22 = U Amph Scr) 9:39 AM) [facility] [id number] 15:39:00 Test Item Value Reference Range Interpretation Comments U Analilia Scr (test code Positive *ABN*(11/21/22 = U Analilia Scr) 9:39 AM) [facility] [id number] 15:39:00 Test Item Value Reference Range Interpretation Comments U Benzodiaz Scr (test Negative *NA*(11/21/22 code = U Benzodiaz Scr) 9:39 AM) [facility] [id number] 15:39:00 Test Item Value Reference Range Interpretation Comments U Cocaine Scr (test Negative *NA*(11/21/22 code = U Cocaine Scr) 9:39 AM) [facility] [id number] 15:39:00 Test Item Value Reference Range Interpretation Comments U Cannab Scr (test Negative *NA*(11/21/22 code = U Cannab Scr) 9:39 AM) [facility] [id number] 15:39:00 Test Item Value Reference Range Interpretation Comments U Opiate Scr (test Positive *ABN*(11/21/22 code = U Opiate Scr) 9:39 AM) [facility] [id number] 15:39:00 Test Item Value Reference Range Interpretation Comments U Phencyclidine Scr (test Negative code = U Phencyclidine *NA*(11/21/22 9:39 Scr) AM) [facility] [id number] 15:39:00 Test Item Value Reference Range Interpretation Comments UDS Note (test code = See Note (11/21/22 9:39 UDS Note) AM) [facility] [id number] 15:39:00 Test Item Value Reference Range Interpretation Comments Coronavirus (COVID-19) Not Detected (11/21/22 JONATHAN (test code = 9:39 AM) Coronavirus (COVID-19) JONATHAN) [facility] [id number] 15:39:00 Test Item Value Reference Range Interpretation Comments Coronavirus (COVID-19) Not Detected (11/21/22 JONATHAN (test code = 9:39 AM) Coronavirus (COVID-19) JONATHAN) [facility] [id number] 15:39:00 Test Item Value Reference Range Interpretation Comments UA Color (test code = Light Yellow UA Color) *NA*(11/21/22 9:39 AM) [facility] [id number] 15:39:00 Test Item Value Reference Range Interpretation Comments UA Turbidity (test code = Clear (11/21/22 9:39 UA Turbidity) AM) [facility] [id number] 15:39:00 Test Item Value Reference Range Interpretation Comments UA Spec Grav (test code = UA Spec 1.014 1 Grav) [facility] [id number] 15:39:00 Test Item Value Reference Range Interpretation Comments UA pH (test code = UA pH) 6.0 1 5.0-8.0 [facility] [id number] 15:39:00 Test Item Value Reference Range Interpretation Comments UA Protein (test code = UA Protein) 30 mg/dL [facility] [id number] 15:39:00 Test Item Value Reference Range Interpretation Comments UA Glucose (test code = UA Negative mg/dL Glucose) [facility] [id number] 15:39:00 Test Item Value Reference Range Interpretation Comments UA Ketones (test code = UA Negative mg/dL Ketones) [facility] [id number] 15:39:00 Test Item Value Reference Range Interpretation Comments UA Bili (test code = Negative *NA*(11/21/22 UA Bili) 9:39 AM) [facility] [id number] 15:39:00 Test Item Value Reference Range Interpretation Comments UA Blood (test code = Negative (11/21/22 9:39 UA Blood) AM) [facility] [id number] 15:39:00 Test Item Value Reference Range Interpretation Comments UA Urobilinogen (test code = UA no gt 0.1-1.0 Urobilinogen) [facility] [id number] 15:39:00 Test Item Value Reference Range Interpretation Comments UA Nitrite (test code Negative (11/21/22 9:39 = UA Nitrite) AM) [facility] [id number] 15:39:00 Test Item Value Reference Range Interpretation Comments UA Leuk Est (test Negative (11/21/22 9:39 code = UA Leuk Est) AM) [facility] [id number] 15:39:00 Test Item Value Reference Range Interpretation Comments UA Sq Epi (test code = UA Sq Occasional /LPF Epi) [facility] [id number] 15:39:00 Test Item Value Reference Range Interpretation Comments UA WBC (test code = no gt See_Comment [Automa sheba message] The UA WBC) system which ge nerated this result transmit sheba reference range : <=5. The reference range was not used to interpr et this result as edy l/abnormal. [facility] [id number] 15:39:00 Test Item Value Reference Range Interpretation Comments UA RBC (test code = no gt See_Comment [Automa sheba message] The UA RBC) system which ge nerated this result transmit sheba reference range : <=2. The reference range was not used to interpr et this result as edy l/abnormal. [facility] [id number] 15:39:00 Test Item Value Reference Range Interpretation Comments UA Color (test code = Light Yellow UA Color) *NA*(11/21/22 9:39 AM) [facility] [id number] 15:39:00 Test Item Value Reference Range Interpretation Comments UA Turbidity (test code = Clear (11/21/22 9:39 UA Turbidity) AM) [facility] [id number] 15:39:00 Test Item Value Reference Range Interpretation Comments UA Spec Grav (test code = UA Spec 1.014 1 Grav) [facility] AND [id number] 15:39:00 Test Item Value Reference Range Interpretation Comments UA pH (test code = UA pH) 6.0 1 5.0-8.0 [facility] AND [id number] 15:39:00 Test Item Value Reference Range Interpretation Comments UA Protein (test code = UA Protein) 30 mg/dL [facility] AND [id number] 15:39:00 Test Item Value Reference Range Interpretation Comments UA Glucose (test code = UA Negative mg/dL Glucose) [facility] AND [id number] 15:39:00 Test Item Value Reference Range Interpretation Comments UA Ketones (test code = UA Negative mg/dL Ketones) [facility] AND [id number] 15:39:00 Test Item Value Reference Range Interpretation Comments UA Bili (test code = Negative *NA*(11/21/22 UA Bili) 9:39 AM) [facility] AND [id number] 15:39:00 Test Item Value Reference Range Interpretation Comments UA Blood (test code = Negative (11/21/22 9:39 UA Blood) AM) [facility] AND [id number] 15:39:00 Test Item Value Reference Range Interpretation Comments UA Urobilinogen (test code = UA no gt 0.1-1.0 Urobilinogen) [facility] AND [id number] 15:39:00 Test Item Value Reference Range Interpretation Comments UA Nitrite (test code Negative (11/21/22 9:39 = UA Nitrite) AM) [facility] AND [id number] 15:39:00 Test Item Value Reference Range Interpretation Comments UA Leuk Est (test Negative (11/21/22 9:39 code = UA Leuk Est) AM) [facility] AND [id number] 15:39:00 Test Item Value Reference Range Interpretation Comments UA Sq Epi (test code = UA Sq Occasional /LPF Epi) [facility] AND [id number] 15:39:00 Test Item Value Reference Range Interpretation Comments UA WBC (test code = no gt See_Comment [Automa sheba message] The UA WBC) system which ge nerated this result transmit sheba reference range : <=5. The reference range was not used to interpr et this result as edy l/abnormal. [id number] 15:39:00 Test Item Value Reference Range Interpretation Comments UA RBC (test code = no gt See_Comment [Automa sheba message] The UA RBC) system which ge nerated this result transmit sheba reference range : <=2. The reference range was not used to interpr et this result as edy l/abnormal. [id number] 15:39:00 Test Item Value Reference Range Interpretation Comments U Amph Scr (test code Negative *NA*(11/21/22 = U Amph Scr) 9:39 AM) [id number] 15:39:00 Test Item Value Reference Range Interpretation Comments U Analilia Scr (test code Positive *ABN*(11/21/22 = U Analilia Scr) 9:39 AM) [id number] 15:39:00 Test Item Value Reference Range Interpretation Comments U Benzodiaz Scr (test Negative *NA*(11/21/22 code = U Benzodiaz Scr) 9:39 AM) [id number] 15:39:00 Test Item Value Reference Range Interpretation Comments U Cocaine Scr (test Negative *NA*(11/21/22 code = U Cocaine Scr) 9:39 AM) [id number] 15:39:00 Test Item Value Reference Range Interpretation Comments U Cannab Scr (test Negative *NA*(11/21/22 code = U Cannab Scr) 9:39 AM) [id number] 15:39:00 Test Item Value Reference Range Interpretation Comments U Opiate Scr (test Positive *ABN*(11/21/22 code = U Opiate Scr) 9:39 AM) [id number] 15:39:00 Test Item Value Reference Range Interpretation Comments U Phencyclidine Scr (test Negative code = U Phencyclidine *NA*(11/21/22 9:39 Scr) AM) [id number] 15:39:00 Test Item Value Reference Range Interpretation Comments UDS Note (test code = See Note (11/21/22 9:39 UDS Note) AM) [facility] [id number] 15:39:00 Test Item Value Reference Range Interpretation Comments U Amph Scr (test code Negative *NA*(11/21/22 = U Amph Scr) 9:39 AM) [facility] [id number] 15:39:00 Test Item Value Reference Range Interpretation Comments U Analilia Scr (test code Positive *ABN*(11/21/22 = U Analilia Scr) 9:39 AM) [facility] [id number] 15:39:00 Test Item Value Reference Range Interpretation Comments U Benzodiaz Scr (test Negative *NA*(11/21/22 code = U Benzodiaz Scr) 9:39 AM) [facility] [id number] 15:39:00 Test Item Value Reference Range Interpretation Comments U Cocaine Scr (test Negative *NA*(11/21/22 code = U Cocaine Scr) 9:39 AM) [facility] [id number] 15:39:00 Test Item Value Reference Range Interpretation Comments U Cannab Scr (test Negative *NA*(11/21/22 code = U Cannab Scr) 9:39 AM) [facility] [id number] 15:39:00 Test Item Value Reference Range Interpretation Comments U Opiate Scr (test Positive *ABN*(11/21/22 code = U Opiate Scr) 9:39 AM) [facility] [id number] 15:39:00 Test Item Value Reference Range Interpretation Comments U Phencyclidine Scr (test Negative code = U Phencyclidine *NA*(11/21/22 9:39 Scr) AM) [facility] [id number] 15:39:00 Test Item Value Reference Range Interpretation Comments UDS Note (test code = See Note (11/21/22 9:39 UDS Note) AM) [facility] [id number] 15:39:00 Test Item Value Reference Range Interpretation Comments Coronavirus (COVID-19) Not Detected (11/21/22 JONATHAN (test code = 9:39 AM) Coronavirus (COVID-19) JONATHAN) [facility] [id number] 15:39:00 Test Item Value Reference Range Interpretation Comments Coronavirus (COVID-19) Not Detected (11/21/22 JONATHAN (test code = 9:39 AM) Coronavirus (COVID-19) JONATHAN) [facility] AND [id number] 15:39:00 Test Item Value Reference Range Interpretation Comments UA Color (test code = Light Yellow UA Color) *NA*(11/21/22 9:39 AM) [facility] AND [id number] 15:39:00 Test Item Value Reference Range Interpretation Comments UA Turbidity (test code = Clear (11/21/22 9:39 UA Turbidity) AM) [facility] AND [id number] 15:39:00 Test Item Value Reference Range Interpretation Comments UA Spec Grav (test code = UA Spec 1.014 1 Grav) [facility] AND [id number] 15:39:00 Test Item Value Reference Range Interpretation Comments UA pH (test code = UA pH) 6.0 1 5.0-8.0 [facility] AND [id number] 15:39:00 Test Item Value Reference Range Interpretation Comments UA Protein (test code = UA Protein) 30 mg/dL [facility] AND [id number] 15:39:00 Test Item Value Reference Range Interpretation Comments UA Glucose (test code = UA Negative mg/dL Glucose) [facility] AND [id number] 15:39:00 Test Item Value Reference Range Interpretation Comments UA Ketones (test code = UA Negative mg/dL Ketones) [facility] AND [id number] 15:39:00 Test Item Value Reference Range Interpretation Comments UA Bili (test code = Negative *NA*(11/21/22 UA Bili) 9:39 AM) [facility] AND [id number] 15:39:00 Test Item Value Reference Range Interpretation Comments UA Blood (test code = Negative (11/21/22 9:39 UA Blood) AM) [facility] AND [id number] 15:39:00 Test Item Value Reference Range Interpretation Comments UA Urobilinogen (test code = UA no gt 0.1-1.0 Urobilinogen) [facility] AND [id number] 15:39:00 Test Item Value Reference Range Interpretation Comments UA Nitrite (test code Negative (11/21/22 9:39 = UA Nitrite) AM) [facility] AND [id number] 15:39:00 Test Item Value Reference Range Interpretation Comments UA Leuk Est (test Negative (11/21/22 9:39 code = UA Leuk Est) AM) [facility] AND [id number] 15:39:00 Test Item Value Reference Range Interpretation Comments UA Sq Epi (test code = UA Sq Occasional /LPF Epi) [facility] [id number] 15:39:00 Test Item Value Reference Range Interpretation Comments UA WBC (test code = no gt See_Comment [Automa sheba message] The UA WBC) system which ge nerated this result transmit sheba reference range : <=5. The reference range was not used to interpr et this result as edy l/abnormal. Nancy Spears AND [id number] 15:39:00 Test Item Value Reference Range Interpretation Comments UA RBC (test code = no gt See_Comment [Automa sheba message] The UA RBC) system which ge nerated this result transmit sheba reference range : <=2. The reference range was not used to interpr et this result as edy l/abnormal. [facility] AND [id number] 15:39:00 Test Item Value Reference Range Interpretation Comments UA Color (test code = Light Yellow UA Color) *NA*(11/21/22 9:39 AM) [facility] [id number] 15:39:00 Test Item Value Reference Range Interpretation Comments UA Turbidity (test code = Clear (11/21/22 9:39 UA Turbidity) AM) [facility] [id number] 15:39:00 Test Item Value Reference Range Interpretation Comments UA Spec Grav (test code = UA Spec 1.014 1 Grav) [facility] [id number] 15:39:00 Test Item Value Reference Range Interpretation Comments UA pH (test code = UA pH) 6.0 1 5.0-8.0 [facility] AND [id number] 15:39:00 Test Item Value Reference Range Interpretation Comments UA Protein (test code = UA Protein) 30 mg/dL [facility] [id number] 15:39:00 Test Item Value Reference Range Interpretation Comments UA Glucose (test code = UA Negative mg/dL Glucose) [facility] [id number] 15:39:00 Test Item Value Reference Range Interpretation Comments UA Ketones (test code = UA Negative mg/dL Ketones) [facility] AND [id number] 15:39:00 Test Item Value Reference Range Interpretation Comments UA Bili (test code = Negative *NA*(11/21/22 UA Bili) 9:39 AM) [facility] AND [id number] 15:39:00 Test Item Value Reference Range Interpretation Comments UA Blood (test code = Negative (11/21/22 9:39 UA Blood) AM) [facility] AND [id number] 15:39:00 Test Item Value Reference Range Interpretation Comments UA Urobilinogen (test code = UA no gt 0.1-1.0 Urobilinogen) [facility] AND [id number] 15:39:00 Test Item Value Reference Range Interpretation Comments UA Nitrite (test code Negative (11/21/22 9:39 = UA Nitrite) AM) [facility] AND [id number] 15:39:00 Test Item Value Reference Range Interpretation Comments UA Leuk Est (test Negative (11/21/22 9:39 code = UA Leuk Est) AM) [facility] AND [id number] 15:39:00 Test Item Value Reference Range Interpretation Comments UA Sq Epi (test code = UA Sq Occasional /LPF Epi) [facility] AND [id number] 15:39:00 Test Item Value Reference Range Interpretation Comments UA WBC (test code = no gt See_Comment [Automa sheba message] The UA WBC) system which ge nerated this result transmit sheba reference range : <=5. The reference range was not used to interpr et this result as edy l/abnormal. [facility] [id number] 15:39:00 Test Item Value Reference Range Interpretation Comments UA RBC (test code = no gt See_Comment [Automa sheba message] The UA RBC) system which ge nerated this result transmit sheba reference range : <=2. The reference range was not used to interpr et this result as edy l/abnormal. [facility] [id number] 15:39:00 Test Item Value Reference Range Interpretation Comments U Amph Scr (test code Negative *NA*(11/21/22 = U Amph Scr) 9:39 AM) [facility] [id number] 15:39:00 Test Item Value Reference Range Interpretation Comments U Analilia Scr (test code Positive *ABN*(11/21/22 = U Analilia Scr) 9:39 AM) [facility] [id number] 15:39:00 Test Item Value Reference Range Interpretation Comments U Benzodiaz Scr (test Negative *NA*(11/21/22 code = U Benzodiaz Scr) 9:39 AM) [facility] [id number] 15:39:00 Test Item Value Reference Range Interpretation Comments U Cocaine Scr (test Negative *NA*(11/21/22 code = U Cocaine Scr) 9:39 AM) [facility] [id number] 15:39:00 Test Item Value Reference Range Interpretation Comments U Cannab Scr (test Negative *NA*(11/21/22 code = U Cannab Scr) 9:39 AM) [facility] [id number] 15:39:00 Test Item Value Reference Range Interpretation Comments U Opiate Scr (test Positive *ABN*(11/21/22 code = U Opiate Scr) 9:39 AM) [facility] [id number] 15:39:00 Test Item Value Reference Range Interpretation Comments U Phencyclidine Scr (test Negative code = U Phencyclidine *NA*(11/21/22 9:39 Scr) AM) [facility] [id number] 15:39:00 Test Item Value Reference Range Interpretation Comments UDS Note (test code = See Note (11/21/22 9:39 UDS Note) AM) [facility] [id number] 15:39:00 Test Item Value Reference Range Interpretation Comments U Amph Scr (test code Negative *NA*(11/21/22 = U Amph Scr) 9:39 AM) [facility] [id number] 15:39:00 Test Item Value Reference Range Interpretation Comments U Analilia Scr (test code Positive *ABN*(11/21/22 = U Analilia Scr) 9:39 AM) [facility]annDR[facility] [id number] 15:39:00 Test Item Value Reference Range Interpretation Comments U Benzodiaz Scr (test Negative *NA*(11/21/22 code = U Benzodiaz Scr) 9:39 AM) [facility] [id number] 15:39:00 Test Item Value Reference Range Interpretation Comments U Cocaine Scr (test Negative *NA*(11/21/22 code = U Cocaine Scr) 9:39 AM) [facility] [id number] 15:39:00 Test Item Value Reference Range Interpretation Comments U Cannab Scr (test Negative *NA*(11/21/22 code = U Cannab Scr) 9:39 AM) [facility] [id number] 15:39:00 Test Item Value Reference Range Interpretation Comments U Opiate Scr (test Positive *ABN*(11/21/22 code = U Opiate Scr) 9:39 AM) [facility] [id number] 15:39:00 Test Item Value Reference Range Interpretation Comments U Phencyclidine Scr (test Negative code = U Phencyclidine *NA*(11/21/22 9:39 Scr) AM) [facility] [id number] 15:39:00 Test Item Value Reference Range Interpretation Comments UDS Note (test code = See Note (11/21/22 9:39 UDS Note) AM) [facility] [id number] 15:39:00 Test Item Value Reference Range Interpretation Comments Coronavirus (COVID-19) Not Detected (11/21/22 JONATHAN (test code = 9:39 AM) Coronavirus (COVID-19) JONATHAN) [facility] [id number] 15:39:00 Test Item Value Reference Range Interpretation Comments Coronavirus (COVID-19) Not Detected (11/21/22 JONATHAN (test code = 9:39 AM) Coronavirus (COVID-19) JONATHAN) [facility] [id number] 15:39:00 Test Item Value Reference Range Interpretation Comments UA Color (test code = Light Yellow UA Color) *NA*(11/21/22 9:39 AM) [facility] [id number] 15:39:00 Test Item Value Reference Range Interpretation Comments UA Turbidity (test code = Clear (11/21/22 9:39 UA Turbidity) AM) [facility] [id number] 15:39:00 Test Item Value Reference Range Interpretation Comments UA Spec Grav (test code = UA Spec 1.014 1 Grav) [facility] AND [id number] 15:39:00 Test Item Value Reference Range Interpretation Comments UA pH (test code = UA pH) 6.0 1 5.0-8.0 [facility] AND [id number] 15:39:00 Test Item Value Reference Range Interpretation Comments UA Protein (test code = UA Protein) 30 mg/dL [facility] AND [id number] 15:39:00 Test Item Value Reference Range Interpretation Comments UA Glucose (test code = UA Negative mg/dL Glucose) [facility] AND [id number] 15:39:00 Test Item Value Reference Range Interpretation Comments UA Ketones (test code = UA Negative mg/dL Ketones) [facility] AND [id number] 15:39:00 Test Item Value Reference Range Interpretation Comments UA Bili (test code = Negative *NA*(11/21/22 UA Bili) 9:39 AM) [facility] AND [id number] 15:39:00 Test Item Value Reference Range Interpretation Comments UA Blood (test code = Negative (11/21/22 9:39 UA Blood) AM) [facility] AND [id number] 15:39:00 Test Item Value Reference Range Interpretation Comments UA Urobilinogen (test code = UA no gt 0.1-1.0 Urobilinogen) [facility] AND [id number] 15:39:00 Test Item Value Reference Range Interpretation Comments UA Nitrite (test code Negative (11/21/22 9:39 = UA Nitrite) AM) [facility] AND [id number] 15:39:00 Test Item Value Reference Range Interpretation Comments UA Leuk Est (test Negative (11/21/22 9:39 code = UA Leuk Est) AM) [facility] AND [id number] 15:39:00 Test Item Value Reference Range Interpretation Comments UA Sq Epi (test code = UA Sq Occasional /LPF Epi) [facility] AND [id number] 15:39:00 Test Item Value Reference Range Interpretation Comments UA WBC (test code = no gt See_Comment [Automa sheba message] The UA WBC) system which ge nerated this result transmit sheba reference range : <=5. The reference range was not used to interpr et this result as eyd l/abnormal. [facility] [id number] 15:39:00 Test Item Value Reference Range Interpretation Comments UA RBC (test code = no gt See_Comment [Automa sheba message] The UA RBC) system which ge nerated this result transmit sheba reference range : <=2. The reference range was not used to interpr et this result as edy l/abnormal. [facility] [id number] 15:39:00 Test Item Value Reference Range Interpretation Comments UA Color (test code = Light Yellow UA Color) *NA*(11/21/22 9:39 AM) [facility] [id number] 15:39:00 Test Item Value Reference Range Interpretation Comments UA Turbidity (test code = Clear (11/21/22 9:39 UA Turbidity) AM) [facility] [id number] 15:39:00 Test Item Value Reference Range Interpretation Comments UA Spec Grav (test code = UA Spec 1.014 1 Grav) [facility] AND [id number] 15:39:00 Test Item Value Reference Range Interpretation Comments UA pH (test code = UA pH) 6.0 1 5.0-8.0 [facility] [id number] 15:39:00 Test Item Value Reference Range Interpretation Comments UA Protein (test code = UA Protein) 30 mg/dL [facility] AND [id number] 15:39:00 Test Item Value Reference Range Interpretation Comments UA Glucose (test code = UA Negative mg/dL Glucose) [facility] AND [id number] 15:39:00 Test Item Value Reference Range Interpretation Comments UA Ketones (test code = UA Negative mg/dL Ketones) [facility] AND [id number] 15:39:00 Test Item Value Reference Range Interpretation Comments UA Bili (test code = Negative *NA*(11/21/22 UA Bili) 9:39 AM) [facility] AND [id number] 15:39:00 Test Item Value Reference Range Interpretation Comments UA Blood (test code = Negative (11/21/22 9:39 UA Blood) AM) [facility]lineannURINE AND [id number] 15:39:00 Test Item Value Reference Range Interpretation Comments UA Urobilinogen (test code = UA no gt 0.1-1.0 Urobilinogen) [facility] [id number] 15:39:00 Test Item Value Reference Range Interpretation Comments UA Nitrite (test code Negative (11/21/22 9:39 = UA Nitrite) AM) [facility] [id number] 15:39:00 Test Item Value Reference Range Interpretation Comments UA Leuk Est (test Negative (11/21/22 9:39 code = UA Leuk Est) AM) [facility] [id number] 15:39:00 Test Item Value Reference Range Interpretation Comments UA Sq Epi (test code = UA Sq Occasional /LPF Epi) [facility] [id number] 15:39:00 Test Item Value Reference Range Interpretation Comments UA WBC (test code = no gt See_Comment [Automa sheba message] The UA WBC) system which ge nerated this result transmit sheba reference range : <=5. The reference range was not used to interpr et this result as edy l/abnormal. [facility] [id number] 15:39:00 Test Item Value Reference Range Interpretation Comments UA RBC (test code = no gt See_Comment [Automa sheba message] The UA RBC) system which ge nerated this result transmit sheba reference range : <=2. The reference range was not used to interpr et this result as edy l/abnormal. [id number] 15:39:00 Test Item Value Reference Range Interpretation Comments U Amph Scr (test code Negative *NA*(11/21/22 = U Amph Scr) 9:39 AM) [id number] 15:39:00 Test Item Value Reference Range Interpretation Comments U Analilia Scr (test code Positive *ABN*(11/21/22 = U Analilia Scr) 9:39 AM) [id number] 15:39:00 Test Item Value Reference Range Interpretation Comments U Benzodiaz Scr (test Negative *NA*(11/21/22 code = U Benzodiaz Scr) 9:39 AM) [id number] 15:39:00 Test Item Value Reference Range Interpretation Comments U Cocaine Scr (test Negative *NA*(11/21/22 code = U Cocaine Scr) 9:39 AM) [facility] [id number] 15:39:00 Test Item Value Reference Range Interpretation Comments U Cannab Scr (test Negative *NA*(11/21/22 code = U Cannab Scr) 9:39 AM) [facility] [id number] 15:39:00 Test Item Value Reference Range Interpretation Comments U Opiate Scr (test Positive *ABN*(11/21/22 code = U Opiate Scr) 9:39 AM) [facility] [id number] 15:39:00 Test Item Value Reference Range Interpretation Comments U Phencyclidine Scr (test Negative code = U Phencyclidine *NA*(11/21/22 9:39 Scr) AM) [facility] [id number] 15:39:00 Test Item Value Reference Range Interpretation Comments UDS Note (test code = See Note (11/21/22 9:39 UDS Note) AM) [facility]ann[facility] [id number] 15:39:00 Test Item Value Reference Range Interpretation Comments U Amph Scr (test code Negative *NA*(11/21/22 = U Amph Scr) 9:39 AM) [facility] [id number] 15:39:00 Test Item Value Reference Range Interpretation Comments U Analilia Scr (test code Positive *ABN*(11/21/22 = U Analilia Scr) 9:39 AM) [facility] [id number] 15:39:00 Test Item Value Reference Range Interpretation Comments U Benzodiaz Scr (test Negative *NA*(11/21/22 code = U Benzodiaz Scr) 9:39 AM) [facility] [id number] 15:39:00 Test Item Value Reference Range Interpretation Comments U Cocaine Scr (test Negative *NA*(11/21/22 code = U Cocaine Scr) 9:39 AM) [facility] [id number] 15:39:00 Test Item Value Reference Range Interpretation Comments U Cannab Scr (test Negative *NA*(11/21/22 code = U Cannab Scr) 9:39 AM) [facility] [id number] 15:39:00 Test Item Value Reference Range Interpretation Comments U Opiate Scr (test Positive *ABN*(11/21/22 code = U Opiate Scr) 9:39 AM) [facility] [id number] 15:39:00 Test Item Value Reference Range Interpretation Comments U Phencyclidine Scr (test Negative code = U Phencyclidine *NA*(11/21/22 9:39 Scr) AM) [facility] [id number] 15:39:00 Test Item Value Reference Range Interpretation Comments UDS Note (test code = See Note (11/21/22 9:39 UDS Note) AM) [facility] [id number] 15:39:00 Test Item Value Reference Range Interpretation Comments Coronavirus (COVID-19) Not Detected (11/21/22 JONATHAN (test code = 9:39 AM) Coronavirus (COVID-19) JONATHAN) [facility] [id number] 15:39:00 Test Item Value Reference Range Interpretation Comments Coronavirus (COVID-19) Not Detected (11/21/22 JONATHAN (test code = 9:39 AM) Coronavirus (COVID-19) JONATHAN) [facility] [id number] 15:39:00 Test Item Value Reference Range Interpretation Comments UA Color (test code = Light Yellow UA Color) *NA*(11/21/22 9:39 AM) [facility] [id number] 15:39:00 Test Item Value Reference Range Interpretation Comments UA Turbidity (test code = Clear (11/21/22 9:39 UA Turbidity) AM) [facility] [id number] 15:39:00 Test Item Value Reference Range Interpretation Comments UA Spec Grav (test code = UA Spec 1.014 1 Grav) [facility] [id number] 15:39:00 Test Item Value Reference Range Interpretation Comments UA pH (test code = UA pH) 6.0 1 5.0-8.0 [facility] [id number] 15:39:00 Test Item Value Reference Range Interpretation Comments UA Protein (test code = UA Protein) 30 mg/dL [facility] [id number] 15:39:00 Test Item Value Reference Range Interpretation Comments UA Glucose (test code = UA Negative mg/dL Glucose) [facility] AND [id number] 15:39:00 Test Item Value Reference Range Interpretation Comments UA Ketones (test code = UA Negative mg/dL Ketones) [facility] AND [id number] 15:39:00 Test Item Value Reference Range Interpretation Comments UA Bili (test code = Negative *NA*(11/21/22 UA Bili) 9:39 AM) [facility] AND [id number] 15:39:00 Test Item Value Reference Range Interpretation Comments UA Blood (test code = Negative (11/21/22 9:39 UA Blood) AM) [facility] AND [id number] 15:39:00 Test Item Value Reference Range Interpretation Comments UA Urobilinogen (test code = UA no gt 0.1-1.0 Urobilinogen) [facility] AND [id number] 15:39:00 Test Item Value Reference Range Interpretation Comments UA Nitrite (test code Negative (11/21/22 9:39 = UA Nitrite) AM) [facility] AND [id number] 15:39:00 Test Item Value Reference Range Interpretation Comments UA Leuk Est (test Negative (11/21/22 9:39 code = UA Leuk Est) AM) [facility] AND [id number] 15:39:00 Test Item Value Reference Range Interpretation Comments UA Sq Epi (test code = UA Sq Occasional /LPF Epi) [facility] AND [id number] 15:39:00 Test Item Value Reference Range Interpretation Comments UA WBC (test code = no gt See_Comment [Automa sheba message] The UA WBC) system which ge nerated this result transmit sheba reference range : <=5. The reference range was not used to interpr et this result as edy l/abnormal. [facility] [id number] 15:39:00 Test Item Value Reference Range Interpretation Comments UA RBC (test code = no gt See_Comment [Automa sheba message] The UA RBC) system which ge nerated this result transmit sheba reference range : <=2. The reference range was not used to interpr et this result as edy l/abnormal. [facility] AND [id number] 15:39:00 Test Item Value Reference Range Interpretation Comments UA Color (test code = Light Yellow UA Color) *NA*(11/21/22 9:39 AM) [facility] AND [id number] 15:39:00 Test Item Value Reference Range Interpretation Comments UA Turbidity (test code = Clear (11/21/22 9:39 UA Turbidity) AM) [facility] AND [id number] 15:39:00 Test Item Value Reference Range Interpretation Comments UA Spec Grav (test code = UA Spec 1.014 1 Grav) [facility] AND [id number] 15:39:00 Test Item Value Reference Range Interpretation Comments UA pH (test code = UA pH) 6.0 1 5.0-8.0 [facility] AND [id number] 15:39:00 Test Item Value Reference Range Interpretation Comments UA Protein (test code = UA Protein) 30 mg/dL [facility] AND [id number] 15:39:00 Test Item Value Reference Range Interpretation Comments UA Glucose (test code = UA Negative mg/dL Glucose) [facility] AND [id number] 15:39:00 Test Item Value Reference Range Interpretation Comments UA Ketones (test code = UA Negative mg/dL Ketones) [facility] AND [id number] 15:39:00 Test Item Value Reference Range Interpretation Comments UA Bili (test code = Negative *NA*(11/21/22 UA Bili) 9:39 AM) [facility] AND [id number] 15:39:00 Test Item Value Reference Range Interpretation Comments UA Blood (test code = Negative (11/21/22 9:39 UA Blood) AM) [facility] AND [id number] 15:39:00 Test Item Value Reference Range Interpretation Comments UA Urobilinogen (test code = UA no gt 0.1-1.0 Urobilinogen) [facility] AND [id number] 15:39:00 Test Item Value Reference Range Interpretation Comments UA Nitrite (test code Negative (11/21/22 9:39 = UA Nitrite) AM) [facility] AND [id number] 15:39:00 Test Item Value Reference Range Interpretation Comments UA Leuk Est (test Negative (11/21/22 9:39 code = UA Leuk Est) AM) [facility] AND [id number] 15:39:00 Test Item Value Reference Range Interpretation Comments UA Sq Epi (test code = UA Sq Occasional /LPF Epi) [facility] AND [id number] 15:39:00 Test Item Value Reference Range Interpretation Comments UA WBC (test code = no gt See_Comment [Automa sheba message] The UA WBC) system which ge nerated this result transmit sheba reference range : <=5. The reference range was not used to interpr et this result as edy l/abnormal. [facility]UR[facility] AND [id number] 15:39:00 Test Item Value Reference Range Interpretation Comments UA RBC (test code = no gt See_Comment [Automa sheba message] The UA RBC) system which ge nerated this result transmit sheba reference range : <=2. The reference range was not used to interpr et this result as edy l/abnormal. [id number] 15:39:00 Test Item Value Reference Range Interpretation Comments U Amph Scr (test code Negative *NA*(11/21/22 = U Amph Scr) 9:39 AM) [id number] 15:39:00 Test Item Value Reference Range Interpretation Comments U Analilia Scr (test code Positive *ABN*(11/21/22 = U Analilia Scr) 9:39 AM) [id number] 15:39:00 Test Item Value Reference Range Interpretation Comments U Benzodiaz Scr (test Negative *NA*(11/21/22 code = U Benzodiaz Scr) 9:39 AM) [id number] 15:39:00 Test Item Value Reference Range Interpretation Comments U Cocaine Scr (test Negative *NA*(11/21/22 code = U Cocaine Scr) 9:39 AM) [id number] 15:39:00 Test Item Value Reference Range Interpretation Comments U Cannab Scr (test Negative *NA*(11/21/22 code = U Cannab Scr) 9:39 AM) [id number] 15:39:00 Test Item Value Reference Range Interpretation Comments U Opiate Scr (test Positive *ABN*(11/21/22 code = U Opiate Scr) 9:39 AM) [facility] [id number] 15:39:00 Test Item Value Reference Range Interpretation Comments U Phencyclidine Scr (test Negative code = U Phencyclidine *NA*(11/21/22 9:39 Scr) AM) [facility] [id number] 15:39:00 Test Item Value Reference Range Interpretation Comments UDS Note (test code = See Note (11/21/22 9:39 UDS Note) AM) [facility] [id number] 15:39:00 Test Item Value Reference Range Interpretation Comments U Amph Scr (test code Negative *NA*(11/21/22 = U Amph Scr) 9:39 AM) [facility] [id number] 15:39:00 Test Item Value Reference Range Interpretation Comments U Analilia Scr (test code Positive *ABN*(11/21/22 = U Analilia Scr) 9:39 AM) [facility] [id number] 15:39:00 Test Item Value Reference Range Interpretation Comments U Benzodiaz Scr (test Negative *NA*(11/21/22 code = U Benzodiaz Scr) 9:39 AM) [facility] [facility] [id number] 15:39:00 Test Item Value Reference Range Interpretation Comments U Cocaine Scr (test Negative *NA*(11/21/22 code = U Cocaine Scr) 9:39 AM) [facility] [id number] 15:39:00 Test Item Value Reference Range Interpretation Comments U Cannab Scr (test Negative *NA*(11/21/22 code = U Cannab Scr) 9:39 AM) [facility] [id number] 15:39:00 Test Item Value Reference Range Interpretation Comments U Opiate Scr (test Positive *ABN*(11/21/22 code = U Opiate Scr) 9:39 AM) [facility] [id number] 15:39:00 Test Item Value Reference Range Interpretation Comments U Phencyclidine Scr (test Negative code = U Phencyclidine *NA*(11/21/22 9:39 Scr) AM) [facility] [id number] 15:39:00 Test Item Value Reference Range Interpretation Comments UDS Note (test code = See Note (11/21/22 9:39 UDS Note) AM) [facility] [id number] 15:39:00 Test Item Value Reference Range Interpretation Comments Coronavirus (COVID-19) Not Detected (11/21/22 JONATHAN (test code = 9:39 AM) Coronavirus (COVID-19) JONATHAN) [id number] 15:39:00 Test Item Value Reference Range Interpretation Comments Coronavirus (COVID-19) Not Detected (11/21/22 JONATHAN (test code = 9:39 AM) Coronavirus (COVID-19) JONATHAN) [facility] AND [id number] 15:39:00 Test Item Value Reference Range Interpretation Comments UA Color (test code = Light Yellow UA Color) *NA*(11/21/22 9:39 AM) [facility] AND [id number] 15:39:00 Test Item Value Reference Range Interpretation Comments UA Turbidity (test code = Clear (11/21/22 9:39 UA Turbidity) AM) [facility] AND [id number] 15:39:00 Test Item Value Reference Range Interpretation Comments UA Spec Grav (test code = UA Spec 1.014 1 Grav) [facility] AND [id number] 15:39:00 Test Item Value Reference Range Interpretation Comments UA pH (test code = UA pH) 6.0 1 5.0-8.0 [facility] AND [id number] 15:39:00 Test Item Value Reference Range Interpretation Comments UA Protein (test code = UA Protein) 30 mg/dL [facility] AND [id number] 15:39:00 Test Item Value Reference Range Interpretation Comments UA Glucose (test code = UA Negative mg/dL Glucose) [facility] AND [id number] 15:39:00 Test Item Value Reference Range Interpretation Comments UA Ketones (test code = UA Negative mg/dL Ketones) [facility] AND [id number] 15:39:00 Test Item Value Reference Range Interpretation Comments UA Bili (test code = Negative *NA*(11/21/22 UA Bili) 9:39 AM) [facility] AND [id number] 15:39:00 Test Item Value Reference Range Interpretation Comments UA Blood (test code = Negative (11/21/22 9:39 UA Blood) AM) [facility] [id number] 15:39:00 Test Item Value Reference Range Interpretation Comments UA Urobilinogen (test code = UA no gt 0.1-1.0 Urobilinogen) [facility] [id number] 15:39:00 Test Item Value Reference Range Interpretation Comments UA Nitrite (test code Negative (11/21/22 9:39 = UA Nitrite) AM) [facility] [id number] 15:39:00 Test Item Value Reference Range Interpretation Comments UA Leuk Est (test Negative (11/21/22 9:39 code = UA Leuk Est) AM) [facility] [id number] 15:39:00 Test Item Value Reference Range Interpretation Comments UA Sq Epi (test code = UA Sq Occasional /LPF Epi) [facility] [id number] 15:39:00 Test Item Value Reference Range Interpretation Comments UA WBC (test code = no gt See_Comment [Automa sheba message] The UA WBC) system which ge nerated this result transmit sheba reference range : <=5. The reference range was not used to interpr et this result as edy l/abnormal. [facility] AND [id number] 15:39:00 Test Item Value Reference Range Interpretation Comments UA RBC (test code = no gt See_Comment [Automa sheba message] The UA RBC) system which ge nerated this result transmit sheba reference range : <=2. The reference range was not used to interpr et this result as edy l/abnormal. [facility] AND [id number] 15:39:00 Test Item Value Reference Range Interpretation Comments UA Color (test code = Light Yellow UA Color) *NA*(11/21/22 9:39 AM) [facility] [id number] 15:39:00 Test Item Value Reference Range Interpretation Comments UA Turbidity (test code = Clear (11/21/22 9:39 UA Turbidity) AM) [facility] [id number] 15:39:00 Test Item Value Reference Range Interpretation Comments UA Spec Grav (test code = UA Spec 1.014 1 Grav) [facility] AND [id number] 15:39:00 Test Item Value Reference Range Interpretation Comments UA pH (test code = UA pH) 6.0 1 5.0-8.0 [facility] AND [id number] 15:39:00 Test Item Value Reference Range Interpretation Comments UA Protein (test code = UA Protein) 30 mg/dL [facility] AND [id number] 15:39:00 Test Item Value Reference Range Interpretation Comments UA Glucose (test code = UA Negative mg/dL Glucose) [facility] AND [id number] 15:39:00 Test Item Value Reference Range Interpretation Comments UA Ketones (test code = UA Negative mg/dL Ketones) [facility] AND [id number] 15:39:00 Test Item Value Reference Range Interpretation Comments UA Bili (test code = Negative *NA*(11/21/22 UA Bili) 9:39 AM) [facility] AND [id number] 15:39:00 Test Item Value Reference Range Interpretation Comments UA Blood (test code = Negative (11/21/22 9:39 UA Blood) AM) [facility] AND [id number] 15:39:00 Test Item Value Reference Range Interpretation Comments UA Urobilinogen (test code = UA no gt 0.1-1.0 Urobilinogen) [facility] AND [id number] 15:39:00 Test Item Value Reference Range Interpretation Comments UA Nitrite (test code Negative (11/21/22 9:39 = UA Nitrite) AM) [facility] AND [id number] 15:39:00 Test Item Value Reference Range Interpretation Comments UA Leuk Est (test Negative (11/21/22 9:39 code = UA Leuk Est) AM) [facility] AND [id number] 15:39:00 Test Item Value Reference Range Interpretation Comments UA Sq Epi (test code = UA Sq Occasional /LPF Epi) [facility] AND [id number] 15:39:00 Test Item Value Reference Range Interpretation Comments UA WBC (test code = no gt See_Comment [Automa sheba message] The UA WBC) system which ge nerated this result transmit sheba reference range : <=5. The reference range was not used to interpr et this result as edy l/abnormal. [facility] AND [id number] 15:39:00 Test Item Value Reference Range Interpretation Comments UA RBC (test code = no gt See_Comment [Automa sheba message] The UA RBC) system which ge nerated this result transmit sheba reference range : <=2. The reference range was not used to interpr et this result as edy l/abnormal. [facility] [id number] 15:39:00 Test Item Value Reference Range Interpretation Comments U Amph Scr (test code Negative *NA*(11/21/22 = U Amph Scr) 9:39 AM) [facility] [id number] 15:39:00 Test Item Value Reference Range Interpretation Comments U Analilia Scr (test code Positive *ABN*(11/21/22 = U Analilia Scr) 9:39 AM) [facility] [id number] 15:39:00 Test Item Value Reference Range Interpretation Comments U Benzodiaz Scr (test Negative *NA*(11/21/22 code = U Benzodiaz Scr) 9:39 AM) [facility] [id number] 15:39:00 Test Item Value Reference Range Interpretation Comments U Cocaine Scr (test Negative *NA*(11/21/22 code = U Cocaine Scr) 9:39 AM) [facility] [id number] 15:39:00 Test Item Value Reference Range Interpretation Comments U Cannab Scr (test Negative *NA*(11/21/22 code = U Cannab Scr) 9:39 AM) [facility] [id number] 15:39:00 Test Item Value Reference Range Interpretation Comments U Opiate Scr (test Positive *ABN*(11/21/22 code = U Opiate Scr) 9:39 AM) [facility] [id number] 15:39:00 Test Item Value Reference Range Interpretation Comments U Phencyclidine Scr (test Negative code = U Phencyclidine *NA*(11/21/22 9:39 Scr) AM) [facility] [id number] 15:39:00 Test Item Value Reference Range Interpretation Comments UDS Note (test code = See Note (11/21/22 9:39 UDS Note) AM) [facility] [id number] 15:39:00 Test Item Value Reference Range Interpretation Comments U Amph Scr (test code Negative *NA*(11/21/22 = U Amph Scr) 9:39 AM) [facility] [id number] 15:39:00 Test Item Value Reference Range Interpretation Comments U Analilia Scr (test code Positive *ABN*(11/21/22 = U Analilia Scr) 9:39 AM) [facility] [id number] 15:39:00 Test Item Value Reference Range Interpretation Comments U Benzodiaz Scr (test Negative *NA*(11/21/22 code = U Benzodiaz Scr) 9:39 AM) [facility] [id number] 15:39:00 Test Item Value Reference Range Interpretation Comments U Cocaine Scr (test Negative *NA*(11/21/22 code = U Cocaine Scr) 9:39 AM) [facility] [id number] 15:39:00 Test Item Value Reference Range Interpretation Comments U Cannab Scr (test Negative *NA*(11/21/22 code = U Cannab Scr) 9:39 AM) [facility] [id number] 15:39:00 Test Item Value Reference Range Interpretation Comments U Opiate Scr (test Positive *ABN*(11/21/22 code = U Opiate Scr) 9:39 AM) [facility] [id number] 15:39:00 Test Item Value Reference Range Interpretation Comments U Phencyclidine Scr (test Negative code = U Phencyclidine *NA*(11/21/22 9:39 Scr) AM) [facility] [id number] 15:39:00 Test Item Value Reference Range Interpretation Comments UDS Note (test code = See Note (11/21/22 9:39 UDS Note) AM) [facility] [id number] 15:39:00 Test Item Value Reference Range Interpretation Comments Coronavirus (COVID-19) Not Detected (11/21/22 JONATHAN (test code = 9:39 AM) Coronavirus (COVID-19) JONATHAN) [facility] [id number] 15:39:00 Test Item Value Reference Range Interpretation Comments Coronavirus (COVID-19) Not Detected (11/21/22 JONATHAN (test code = 9:39 AM) Coronavirus (COVID-19) JONATHAN) [facility] [id number] 15:39:00 Test Item Value Reference Range Interpretation Comments UA Color (test code = Light Yellow UA Color) *NA*(11/21/22 9:39 AM) [facility] AND [id number] 15:39:00 Test Item Value Reference Range Interpretation Comments UA Turbidity (test code = Clear (11/21/22 9:39 UA Turbidity) AM) [facility] AND [id number] 15:39:00 Test Item Value Reference Range Interpretation Comments UA Spec Grav (test code = UA Spec 1.014 1 Grav) [facility] AND [id number] 15:39:00 Test Item Value Reference Range Interpretation Comments UA pH (test code = UA pH) 6.0 1 5.0-8.0 [facility] AND [id number] 15:39:00 Test Item Value Reference Range Interpretation Comments UA Protein (test code = UA Protein) 30 mg/dL [facility] AND [id number] 15:39:00 Test Item Value Reference Range Interpretation Comments UA Glucose (test code = UA Negative mg/dL Glucose) [facility] AND [id number] 15:39:00 Test Item Value Reference Range Interpretation Comments UA Ketones (test code = UA Negative mg/dL Ketones) [facility] AND [id number] 15:39:00 Test Item Value Reference Range Interpretation Comments UA Bili (test code = Negative *NA*(11/21/22 UA Bili) 9:39 AM) [facility] AND [id number] 15:39:00 Test Item Value Reference Range Interpretation Comments UA Blood (test code = Negative (11/21/22 9:39 UA Blood) AM) [facility] AND [id number] 15:39:00 Test Item Value Reference Range Interpretation Comments UA Urobilinogen (test code = UA no gt 0.1-1.0 Urobilinogen) [facility] AND [id number] 15:39:00 Test Item Value Reference Range Interpretation Comments UA Nitrite (test code Negative (11/21/22 9:39 = UA Nitrite) AM) [facility] AND [id number] 15:39:00 Test Item Value Reference Range Interpretation Comments UA Leuk Est (test Negative (11/21/22 9:39 code = UA Leuk Est) AM) [facility] AND [id number] 15:39:00 Test Item Value Reference Range Interpretation Comments UA Sq Epi (test code = UA Sq Occasional /LPF Epi) [facility] [id number] 15:39:00 Test Item Value Reference Range Interpretation Comments UA WBC (test code = no gt See_Comment [Automa sheba message] The UA WBC) system which ge nerated this result transmit sheba reference range : <=5. The reference range was not used to interpr et this result as edy l/abnormal. [facility] [id number] 15:39:00 Test Item Value Reference Range Interpretation Comments UA RBC (test code = no gt See_Comment [Automa sheba message] The UA RBC) system which ge nerated this result transmit sheba reference range : <=2. The reference range was not used to interpr et this result as edy l/abnormal. [facility] AND [id number] 15:39:00 Test Item Value Reference Range Interpretation Comments UA Color (test code = Light Yellow UA Color) *NA*(11/21/22 9:39 AM) [facility] [id number] 15:39:00 Test Item Value Reference Range Interpretation Comments UA Turbidity (test code = Clear (11/21/22 9:39 UA Turbidity) AM) [facility] [id number] 15:39:00 Test Item Value Reference Range Interpretation Comments UA Spec Grav (test code = UA Spec 1.014 1 Grav) [facility] [id number] 15:39:00 Test Item Value Reference Range Interpretation Comments UA pH (test code = UA pH) 6.0 1 5.0-8.0 [facility] [id number] 15:39:00 Test Item Value Reference Range Interpretation Comments UA Protein (test code = UA Protein) 30 mg/dL [facility] [id number] 15:39:00 Test Item Value Reference Range Interpretation Comments UA Glucose (test code = UA Negative mg/dL Glucose) [facility] [id number] 15:39:00 Test Item Value Reference Range Interpretation Comments UA Ketones (test code = UA Negative mg/dL Ketones) [facility] AND [id number] 15:39:00 Test Item Value Reference Range Interpretation Comments UA Bili (test code = Negative *NA*(11/21/22 UA Bili) 9:39 AM) [facility] [id number] 15:39:00 Test Item Value Reference Range Interpretation Comments UA Blood (test code = Negative (11/21/22 9:39 UA Blood) AM) [facility] [id number] 15:39:00 Test Item Value Reference Range Interpretation Comments UA Urobilinogen (test code = UA no gt 0.1-1.0 Urobilinogen) [facility] [id number] 15:39:00 Test Item Value Reference Range Interpretation Comments UA Nitrite (test code Negative (11/21/22 9:39 = UA Nitrite) AM) [facility] [id number] 15:39:00 Test Item Value Reference Range Interpretation Comments UA Leuk Est (test Negative (11/21/22 9:39 code = UA Leuk Est) AM) [facility] [id number] 15:39:00 Test Item Value Reference Range Interpretation Comments UA Sq Epi (test code = UA Sq Occasional /LPF Epi) [facility] [id number] 15:39:00 Test Item Value Reference Range Interpretation Comments UA WBC (test code = no gt See_Comment [Automa sheba message] The UA WBC) system which ge nerated this result transmit sheba reference range : <=5. The reference range was not used to interpr et this result as edy l/abnormal. [facility] [id number] 15:39:00 Test Item Value Reference Range Interpretation Comments UA RBC (test code = no gt See_Comment [Automa sheba message] The UA RBC) system which ge nerated this result transmit sheba reference range : <=2. The reference range was not used to interpr et this result as edy l/abnormal. [facility] [id number] 15:39:00 Test Item Value Reference Range Interpretation Comments U Amph Scr (test code Negative *NA*(11/21/22 = U Amph Scr) 9:39 AM) [facility] [id number] 15:39:00 Test Item Value Reference Range Interpretation Comments U Analilia Scr (test code Positive *ABN*(11/21/22 = U Analilia Scr) 9:39 AM) [facility] [id number] 15:39:00 Test Item Value Reference Range Interpretation Comments U Benzodiaz Scr (test Negative *NA*(11/21/22 code = U Benzodiaz Scr) 9:39 AM) [facility] [id number] 15:39:00 Test Item Value Reference Range Interpretation Comments U Cocaine Scr (test Negative *NA*(11/21/22 code = U Cocaine Scr) 9:39 AM) [facility] [id number] 15:39:00 Test Item Value Reference Range Interpretation Comments U Cannab Scr (test Negative *NA*(11/21/22 code = U Cannab Scr) 9:39 AM) [facility] [id number] 15:39:00 Test Item Value Reference Range Interpretation Comments U Opiate Scr (test Positive *ABN*(11/21/22 code = U Opiate Scr) 9:39 AM) [facility] [id number] 15:39:00 Test Item Value Reference Range Interpretation Comments U Phencyclidine Scr (test Negative code = U Phencyclidine *NA*(11/21/22 9:39 Scr) AM) [facility] [id number] 15:39:00 Test Item Value Reference Range Interpretation Comments UDS Note (test code = See Note (11/21/22 9:39 UDS Note) AM) [facility] [id number] 15:39:00 Test Item Value Reference Range Interpretation Comments U Amph Scr (test code Negative *NA*(11/21/22 = U Amph Scr) 9:39 AM) [facility] [id number] 15:39:00 Test Item Value Reference Range Interpretation Comments U Analilia Scr (test code Positive *ABN*(11/21/22 = U Analilia Scr) 9:39 AM) [facility] [id number] 15:39:00 Test Item Value Reference Range Interpretation Comments U Benzodiaz Scr (test Negative *NA*(11/21/22 code = U Benzodiaz Scr) 9:39 AM) [facility] [id number] 15:39:00 Test Item Value Reference Range Interpretation Comments U Cocaine Scr (test Negative *NA*(11/21/22 code = U Cocaine Scr) 9:39 AM) [facility] [id number] 15:39:00 Test Item Value Reference Range Interpretation Comments U Cannab Scr (test Negative *NA*(11/21/22 code = U Cannab Scr) 9:39 AM) [facility] [id number] 15:39:00 Test Item Value Reference Range Interpretation Comments U Opiate Scr (test Positive *ABN*(11/21/22 code = U Opiate Scr) 9:39 AM) [facility] [id number] 15:39:00 Test Item Value Reference Range Interpretation Comments U Phencyclidine Scr (test Negative code = U Phencyclidine *NA*(11/21/22 9:39 Scr) AM) [facility] [id number] 15:39:00 Test Item Value Reference Range Interpretation Comments UDS Note (test code = See Note (11/21/22 9:39 UDS Note) AM) [facility] [id number] 15:39:00 Test Item Value Reference Range Interpretation Comments Coronavirus (COVID-19) Not Detected (11/21/22 JONATHAN (test code = 9:39 AM) Coronavirus (COVID-19) JONATHAN) [facility] [id number] 15:39:00 Test Item Value Reference Range Interpretation Comments Coronavirus (COVID-19) Not Detected (11/21/22 JONATHAN (test code = 9:39 AM) Coronavirus (COVID-19) JONATHAN) [facility] [id number] 15:39:00 Test Item Value Reference Range Interpretation Comments UA Color (test code = Light Yellow UA Color) *NA*(11/21/22 9:39 AM) [facility] [id number] 15:39:00 Test Item Value Reference Range Interpretation Comments UA Turbidity (test code = Clear (11/21/22 9:39 UA Turbidity) AM) [facility] [id number] 15:39:00 Test Item Value Reference Range Interpretation Comments UA Spec Grav (test code = UA Spec 1.014 1 Grav) [facility] [id number] 15:39:00 Test Item Value Reference Range Interpretation Comments UA pH (test code = UA pH) 6.0 1 5.0-8.0 [facility] AND [id number] 15:39:00 Test Item Value Reference Range Interpretation Comments UA Protein (test code = UA Protein) 30 mg/dL [facility] AND [id number] 15:39:00 Test Item Value Reference Range Interpretation Comments UA Glucose (test code = UA Negative mg/dL Glucose) [facility] AND [id number] 15:39:00 Test Item Value Reference Range Interpretation Comments UA Ketones (test code = UA Negative mg/dL Ketones) [facility] AND [id number] 15:39:00 Test Item Value Reference Range Interpretation Comments UA Bili (test code = Negative *NA*(11/21/22 UA Bili) 9:39 AM) [facility] AND [id number] 15:39:00 Test Item Value Reference Range Interpretation Comments UA Blood (test code = Negative (11/21/22 9:39 UA Blood) AM) [facility] AND [id number] 15:39:00 Test Item Value Reference Range Interpretation Comments UA Urobilinogen (test code = UA no gt 0.1-1.0 Urobilinogen) [facility] AND [id number] 15:39:00 Test Item Value Reference Range Interpretation Comments UA Nitrite (test code Negative (11/21/22 9:39 = UA Nitrite) AM) [facility] AND [id number] 15:39:00 Test Item Value Reference Range Interpretation Comments UA Leuk Est (test Negative (11/21/22 9:39 code = UA Leuk Est) AM) [facility] AND [id number] 15:39:00 Test Item Value Reference Range Interpretation Comments UA Sq Epi (test code = UA Sq Occasional /LPF Epi) [facility] AND [id number] 15:39:00 Test Item Value Reference Range Interpretation Comments UA WBC (test code = no gt See_Comment [Automa sheba message] The UA WBC) system which ge nerated this result transmit sheba reference range : <=5. The reference range was not used to interpr et this result as edy l/abnormal. [facility] AND [id number] 15:39:00 Test Item Value Reference Range Interpretation Comments UA RBC (test code = no gt See_Comment [Automa sheba message] The UA RBC) system which ge nerated this result transmit sheba reference range : <=2. The reference range was not used to interpr et this result as edy l/abnormal. [facility] AND [id number] 15:39:00 Test Item Value Reference Range Interpretation Comments UA Color (test code = Light Yellow UA Color) *NA*(11/21/22 9:39 AM) [facility] AND [id number] 15:39:00 Test Item Value Reference Range Interpretation Comments UA Turbidity (test code = Clear (11/21/22 9:39 UA Turbidity) AM) [facility] AND [id number] 15:39:00 Test Item Value Reference Range Interpretation Comments UA Spec Grav (test code = UA Spec 1.014 1 Grav) [facility] AND [id number] 15:39:00 Test Item Value Reference Range Interpretation Comments UA pH (test code = UA pH) 6.0 1 5.0-8.0 [facility] AND [id number] 15:39:00 Test Item Value Reference Range Interpretation Comments UA Protein (test code = UA Protein) 30 mg/dL [facility] AND [id number] 15:39:00 Test Item Value Reference Range Interpretation Comments UA Glucose (test code = UA Negative mg/dL Glucose) [facility] AND [id number] 15:39:00 Test Item Value Reference Range Interpretation Comments UA Ketones (test code = UA Negative mg/dL Ketones) [facility] AND [id number] 15:39:00 Test Item Value Reference Range Interpretation Comments UA Bili (test code = Negative *NA*(11/21/22 UA Bili) 9:39 AM) [facility] AND [id number] 15:39:00 Test Item Value Reference Range Interpretation Comments UA Blood (test code = Negative (11/21/22 9:39 UA Blood) AM) [facility] AND [id number] 15:39:00 Test Item Value Reference Range Interpretation Comments UA Urobilinogen (test code = UA no gt 0.1-1.0 Urobilinogen) [facility] [id number] 15:39:00 Test Item Value Reference Range Interpretation Comments UA Nitrite (test code Negative (11/21/22 9:39 = UA Nitrite) AM) [facility] [id number] 15:39:00 Test Item Value Reference Range Interpretation Comments UA Leuk Est (test Negative (11/21/22 9:39 code = UA Leuk Est) AM) [facility] [id number] 15:39:00 Test Item Value Reference Range Interpretation Comments UA Sq Epi (test code = UA Sq Occasional /LPF Epi) [facility] [id number] 15:39:00 Test Item Value Reference Range Interpretation Comments UA WBC (test code = no gt See_Comment [Automa sheba message] The UA WBC) system which ge nerated this result transmit sheba reference range : <=5. The reference range was not used to interpr et this result as edy l/abnormal. [facility] [id number] 15:39:00 Test Item Value Reference Range Interpretation Comments UA RBC (test code = no gt See_Comment [Automa sheba message] The UA RBC) system which ge nerated this result transmit sheba reference range : <=2. The reference range was not used to interpr et this result as edy l/abnormal. [id number] 15:39:00 Test Item Value Reference Range Interpretation Comments U Amph Scr (test code Negative *NA*(11/21/22 = U Amph Scr) 9:39 AM) [id number] 15:39:00 Test Item Value Reference Range Interpretation Comments U Analilia Scr (test code Positive *ABN*(11/21/22 = U Analilia Scr) 9:39 AM) [id number] 15:39:00 Test Item Value Reference Range Interpretation Comments U Benzodiaz Scr (test Negative *NA*(11/21/22 code = U Benzodiaz Scr) 9:39 AM) [id number] 15:39:00 Test Item Value Reference Range Interpretation Comments U Cocaine Scr (test Negative *NA*(11/21/22 code = U Cocaine Scr) 9:39 AM) [facility]iscoJjjzglaJGTHOYXIA1130-99-04 15:39:00 Test Item Value Reference Range Interpretation Comments U Cannab Scr (test Negative *NA*(11/21/22 code = U Cannab Scr) 9:39 AM) [facility] [id number] 15:39:00 Test Item Value Reference Range Interpretation Comments U Opiate Scr (test Positive *ABN*(11/21/22 code = U Opiate Scr) 9:39 AM) [facility] [id number] 15:39:00 Test Item Value Reference Range Interpretation Comments U Phencyclidine Scr (test Negative code = U Phencyclidine *NA*(11/21/22 9:39 Scr) AM) [facility] [id number] 15:39:00 Test Item Value Reference Range Interpretation Comments UDS Note (test code = See Note (11/21/22 9:39 UDS Note) AM) [facility] [id number] 15:39:00 Test Item Value Reference Range Interpretation Comments U Amph Scr (test code Negative *NA*(11/21/22 = U Amph Scr) 9:39 AM) [facility] [id number] 15:39:00 Test Item Value Reference Range Interpretation Comments U Analilia Scr (test code Positive *ABN*(11/21/22 = U Analilia Scr) 9:39 AM) [facility] [id number] 15:39:00 Test Item Value Reference Range Interpretation Comments U Benzodiaz Scr (test Negative *NA*(11/21/22 code = U Benzodiaz Scr) 9:39 AM) [facility] [id number] 15:39:00 Test Item Value Reference Range Interpretation Comments U Cocaine Scr (test Negative *NA*(11/21/22 code = U Cocaine Scr) 9:39 AM) [facility] [id number] 15:39:00 Test Item Value Reference Range Interpretation Comments U Cannab Scr (test Negative *NA*(11/21/22 code = U Cannab Scr) 9:39 AM) [facility] [id number] 15:39:00 Test Item Value Reference Range Interpretation Comments U Opiate Scr (test Positive *ABN*(11/21/22 code = U Opiate Scr) 9:39 AM) [facility] [id number] 15:39:00 Test Item Value Reference Range Interpretation Comments U Phencyclidine Scr (test Negative code = U Phencyclidine *NA*(11/21/22 9:39 Scr) AM) [facility] [id number] 15:39:00 Test Item Value Reference Range Interpretation Comments UDS Note (test code = See Note (11/21/22 9:39 UDS Note) AM) [facility] [id number] 15:39:00 Test Item Value Reference Range Interpretation Comments Coronavirus (COVID-19) Not Detected (11/21/22 JONATHAN (test code = 9:39 AM) Coronavirus (COVID-19) JONATHAN) [facility] [id number] 15:39:00 Test Item Value Reference Range Interpretation Comments Coronavirus (COVID-19) Not Detected (11/21/22 JONATHAN (test code = 9:39 AM) Coronavirus (COVID-19) JONATHAN) [facility] [id number] 15:39:00 Test Item Value Reference Range Interpretation Comments UA Color (test code = Light Yellow UA Color) *NA*(11/21/22 9:39 AM) [facility] [id number] 15:39:00 Test Item Value Reference Range Interpretation Comments UA Turbidity (test code = Clear (11/21/22 9:39 UA Turbidity) AM) [facility] [id number] 15:39:00 Test Item Value Reference Range Interpretation Comments UA Spec Grav (test code = UA Spec 1.014 1 Grav) [facility] [id number] 15:39:00 Test Item Value Reference Range Interpretation Comments UA pH (test code = UA pH) 6.0 1 5.0-8.0 [facility] [id number] 15:39:00 Test Item Value Reference Range Interpretation Comments UA Protein (test code = UA Protein) 30 mg/dL [facility] [id number] 15:39:00 Test Item Value Reference Range Interpretation Comments UA Glucose (test code = UA Negative mg/dL Glucose) [facility] [id number] 15:39:00 Test Item Value Reference Range Interpretation Comments UA Ketones (test code = UA Negative mg/dL Ketones) [facility] [id number] 15:39:00 Test Item Value Reference Range Interpretation Comments UA Bili (test code = Negative *NA*(11/21/22 UA Bili) 9:39 AM) [facility] [id number] 15:39:00 Test Item Value Reference Range Interpretation Comments UA Blood (test code = Negative (11/21/22 9:39 UA Blood) AM) [facility] [id number] 15:39:00 Test Item Value Reference Range Interpretation Comments UA Urobilinogen (test code = UA no gt 0.1-1.0 Urobilinogen) [facility] [id number] 15:39:00 Test Item Value Reference Range Interpretation Comments UA Nitrite (test code Negative (11/21/22 9:39 = UA Nitrite) AM) [facility] [id number] 15:39:00 Test Item Value Reference Range Interpretation Comments UA Leuk Est (test Negative (11/21/22 9:39 code = UA Leuk Est) AM) [facility] [id number] 15:39:00 Test Item Value Reference Range Interpretation Comments UA Sq Epi (test code = UA Sq Occasional /LPF Epi) [facility] [id number] 15:39:00 Test Item Value Reference Range Interpretation Comments UA WBC (test code = no gt See_Comment [Automa sheba message] The UA WBC) system which ge nerated this result transmit sheba reference range : <=5. The reference range was not used to interpr et this result as edy l/abnormal. [facility] [id number] 15:39:00 Test Item Value Reference Range Interpretation Comments UA RBC (test code = no gt See_Comment [Automa sheba message] The UA RBC) system which ge nerated this result transmit sheba reference range : <=2. The reference range was not used to interpr et this result as edy l/abnormal. [facility] [id number] 15:39:00 Test Item Value Reference Range Interpretation Comments UA Color (test code = Light Yellow UA Color) *NA*(11/21/22 9:39 AM) [facility] [id number] 15:39:00 Test Item Value Reference Range Interpretation Comments UA Turbidity (test code = Clear (11/21/22 9:39 UA Turbidity) AM) [facility] AND [id number] 15:39:00 Test Item Value Reference Range Interpretation Comments UA Spec Grav (test code = UA Spec 1.014 1 Grav) [facility] AND [id number] 15:39:00 Test Item Value Reference Range Interpretation Comments UA pH (test code = UA pH) 6.0 1 5.0-8.0 [facility] AND [id number] 15:39:00 Test Item Value Reference Range Interpretation Comments UA Protein (test code = UA Protein) 30 mg/dL [facility] AND [id number] 15:39:00 Test Item Value Reference Range Interpretation Comments UA Glucose (test code = UA Negative mg/dL Glucose) [facility] AND [id number] 15:39:00 Test Item Value Reference Range Interpretation Comments UA Ketones (test code = UA Negative mg/dL Ketones) [facility] AND [id number] 15:39:00 Test Item Value Reference Range Interpretation Comments UA Bili (test code = Negative *NA*(11/21/22 UA Bili) 9:39 AM) [facility] AND [id number] 15:39:00 Test Item Value Reference Range Interpretation Comments UA Blood (test code = Negative (11/21/22 9:39 UA Blood) AM) [facility] AND [id number] 15:39:00 Test Item Value Reference Range Interpretation Comments UA Urobilinogen (test code = UA no gt 0.1-1.0 Urobilinogen) [facility] AND [id number] 15:39:00 Test Item Value Reference Range Interpretation Comments UA Nitrite (test code Negative (11/21/22 9:39 = UA Nitrite) AM) [facility] AND [id number] 15:39:00 Test Item Value Reference Range Interpretation Comments UA Leuk Est (test Negative (11/21/22 9:39 code = UA Leuk Est) AM) [facility] AND [id number] 15:39:00 Test Item Value Reference Range Interpretation Comments UA Sq Epi (test code = UA Sq Occasional /LPF Epi) [facility] AND [id number] 15:39:00 Test Item Value Reference Range Interpretation Comments UA WBC (test code = no gt See_Comment [Automa sheba message] The UA WBC) system which ge nerated this result transmit sheba reference range : <=5. The reference range was not used to interpr et this result as edy l/abnormal. [facility] [id number] 15:39:00 Test Item Value Reference Range Interpretation Comments UA RBC (test code = no gt See_Comment [Automa sheba message] The UA RBC) system which ge nerated this result transmit sheba reference range : <=2. The reference range was not used to interpr et this result as edy l/abnormal. [employer] [id number] 12:50:00 Test Item Value Reference Range Interpretation Comments ABO/Rh (test code = ABO/Rh) O POS [facility] [id number] 12:50:00 Test Item Value Reference Range Interpretation Comments Antibody Scrn (test Negative (11/21/22 6:50 code = Antibody Scrn) AM) [id number] 12:50:00 Test Item Value Reference Range Interpretation Comments Ethanol Lvl (test code = Ethanol Lvl) no gt [facility] [id number] 12:50:00 Test Item Value Reference Range Interpretation Comments Etoh (%) (test code = Etoh (%)) no gt [facility] XggwzxfXWYFFQEEY0915-19-50 12:50:00 Test Item Value Reference Range Interpretation Comments Lactic Acid Lvl (test code = Lactic 0.7 0.5-2.2 Acid Lvl) [facility] Cen[id number] 12:50:00 Test Item Value Reference Range Interpretation Comments Total Protein (test code = Total 6.1 6.4-8.4 Protein) [facility] [id number] 12:50:00 Test Item Value Reference Range Interpretation Comments Albumin Lvl (test code = Albumin Lvl) 2.9 3.5-5.0 [facility] [id number] 12:50:00 Test Item Value Reference Range Interpretation Comments Globulin (test code = Globulin) 3.2 2.7-4.2 [facility] CenterCttprngLCQIZNZSL9008-51-85 12:50:00 Test Item Value Reference Range Interpretation Comments A/G Ratio (test code = A/G Ratio) 0.9 1 0.7-1.6 [facility]awzzjwJIBIXOPXF5887-25-01 12:50:00 Test Item Value Reference Range Interpretation Comments ALT (test code = ALT) 16 See_Comment [Auto mated message] The system which ge nerated this result transmit sheba reference range : <=65. The reference range was not used to interpr et this result as edy l/abnormal. [facility]UqjhdjyFTIQPWZND8717-03-76 12:50:00 Test Item Value Reference Range Interpretation Comments AST (test code = AST) 15 See_Comment [Auto mated message] The system which ge nerated this result transmit sheba reference range : <=37. The reference range was not used to interpr et this result as edy l/abnormal. [place] [id number] 12:50:00 Test Item Value Reference Range Interpretation Comments Alk Phos (test code = Alk Phos) 96 39-136 [place] [id number] 12:50:00 Test Item Value Reference Range Interpretation Comments Bili Total (test code = Bili Total) 0.2 0.2-1.3 [place] [id number] 12:50:00 Test Item Value Reference Range Interpretation Comments Bili Direct (test code no gt See_Comment [Aut omated message] The = Bili Direct) system which generated this result tra nsmitted reference range : <=0.3. The reference r christiano was not used to int erpret this result as edy l/abnormal. [facility] Hospi[id number] 12:50:00 Test Item Value Reference Range Interpretation Comments Bili Indirect Unable to See_Comment [Automated (test code = Bili Calculate message] T he system Indirect) which generated this result transmitted reference range : <=1.0. The reference range was not used to interpret this result as normal/abnormal . [place] [id number] 12:50:00 Test Item Value Reference Range Interpretation Comments HS Troponin I (test code = HS Troponin 15 I) [place] [id number] 12:50:00 Test Item Value Reference Range Interpretation Comments pH Justin (test code = pH Justin) 7.35 1 7.28-7.42 [place] [id number] 12:50:00 Test Item Value Reference Range Interpretation Comments pCO2 Justin (test code = pCO2 Justin) 55 38-52 [place] [id number] 12:50:00 Test Item Value Reference Range Interpretation Comments pO2 Justin (test code = pO2 Justin) 43 20-49 [place] [id number] 12:50:00 Test Item Value Reference Range Interpretation Comments HCO3 Justin (test code = HCO3 Justin) 30 22-26 [place] [id number] 12:50:00 Test Item Value Reference Range Interpretation Comments BE Justin (test code = BE Justin) 3 -2-2 [place] [id number] 12:50:00 Test Item Value Reference Range Interpretation Comments O2 Sat Justin (calc) (test code = O2 Sat 75.9 40.0-70.0 Justin (calc)) [place] [id number] 12:50:00 Test Item Value Reference Range Interpretation Comments Temp Justin (test code = Temp Justin) 37.0 [place] [id number] 12:50:00 Test Item Value Reference Range Interpretation Comments ACT (TEG) Rapid (test code = ACT (TEG) 113 s 86-118 Rapid) [place] [id number] 12:50:00 Test Item Value Reference Range Interpretation Comments Split Point Rapid (test code = Split 0.6 min Point Rapid) [place] [id number] 12:50:00 Test Item Value Reference Range Interpretation Comments R-time Rapid (test code = R-time 0.7 min 0.4-0.7 Rapid) [place] 633383-02-21 12:50:00 Test Item Value Reference Range Interpretation Comments K-time Rapid (test code = K-time 1.1 min 0.6-2.3 Rapid) [place] [id number] 12:50:00 Test Item Value Reference Range Interpretation Comments Angle Rapid (test code = Angle 78 degrees 64-80 Rapid) [place] 633383-02-21 12:50:00 Test Item Value Reference Range Interpretation Comments Max Amplitude Rapid (test code = Max 65 mm 52-71 Amplitude Rapid) [place] 633383-02-21 12:50:00 Test Item Value Reference Range Interpretation Comments G-value Rapid (test code = G-value 9.2 5.0-11.6 Rapid) [facility] HospitalHqszkzlHBRWTBYNVQ2925-86-67 12:50:00 Test Item Value Reference Range Interpretation Comments Estimated % Lysis Rapid 0.0 See_Comment [Au tomated message] The (test code = Estimated syste m which generated % Lysis Rapid) this result t ransmitted reference range : <=7.5. The reference r christiano was not used to int erpret this result as normal/abnormal . [facility] CenterSsawipiGPDSSCIYGE3703-43-26 12:50:00 Test Item Value Reference Range Interpretation Comments Plt Morph (test code = See Note 1(11/21/22 Plt Morph) 6:50 AM) [facility] HospitalZqzsazoIVKXPNESLX1636-41-67 12:50:00 Test Item Value Reference Range Interpretation Comments Stomatocyte (test code = Stomatocyte) slight [facility] [id number] 12:50:00 Test Item Value Reference Range Interpretation Comments ABO/Rh (test code = ABO/Rh) O POS [facility] [id number] 12:50:00 Test Item Value Reference Range Interpretation Comments Antibody Scrn (test Negative (11/21/22 6:50 code = Antibody Scrn) AM) [facility] CenterDxusuydHCQPFBSKG7421-45-03 12:50:00 Test Item Value Reference Range Interpretation Comments Ethanol Lvl (test code = Ethanol Lvl) no gt [facility] CenterXomkmuuLERQQUCKK7504-64-76 12:50:00 Test Item Value Reference Range Interpretation Comments Etoh (%) (test code = Etoh (%)) no gt [facility] CenterFtogegyZKKPRWZSI2586-49-23 12:50:00 Test Item Value Reference Range Interpretation Comments Lactic Acid Lvl (test code = Lactic 0.7 0.5-2.2 Acid Lvl) [facility] CenterXooczgpKWIGLKOSJ3764-34-62 12:50:00 Test Item Value Reference Range Interpretation Comments Total Protein (test code = Total 6.1 6.4-8.4 Protein) [facility] CenterMilzrcmUDCNUUMUX6951-23-60 12:50:00 Test Item Value Reference Range Interpretation Comments Albumin Lvl (test code = Albumin Lvl) 2.9 3.5-5.0 [facility] XymnxpvSOKLKBIKM1687-28-85 12:50:00 Test Item Value Reference Range Interpretation Comments Globulin (test code = Globulin) 3.2 2.7-4.2 [facility] CenterHlopitcFAZLNUIIW9828-95-01 12:50:00 Test Item Value Reference Range Interpretation Comments A/G Ratio (test code = A/G Ratio) 0.9 1 0.7-1.6 [facility] CenterGjzfuhkJEHETLMKO2187-84-66 12:50:00 Test Item Value Reference Range Interpretation Comments ALT (test code = ALT) 16 See_Comment [Auto mated message] The system which ge nerated this result transmit sheba reference range : <=65. The reference range was not used to interpr et this result as edy l/abnormal. [facility] CenterVkitaqiRZYRSKZQS7559-38-46 12:50:00 Test Item Value Reference Range Interpretation Comments AST (test code = AST) 15 See_Comment [Auto mated message] The system which ge nerated this result transmit sheba reference range : <=37. The reference range was not used to interpr et this result as edy l/abnormal. [facility] YfxcbrtYIBUGPGVB0880-41-67 12:50:00 Test Item Value Reference Range Interpretation Comments Alk Phos (test code = Alk Phos) 96 39-136 [facility] CenterBlpkswmEIYKJIPWA4277-01-43 12:50:00 Test Item Value Reference Range Interpretation Comments Bili Total (test code = Bili Total) 0.2 0.2-1.3 [facility] CenterYlmkqtvVKXAZLTAB0424-13-47 12:50:00 Test Item Value Reference Range Interpretation Comments Bili Direct (test code no gt See_Comment [Aut omated message] The = Bili Direct) system which generated this result tra nsmitted reference range : <=0.3. The reference r christiano was not used to int erpret this result as edy l/abnormal. [facility] LedpjmmDLEYTURKL2840-42-22 12:50:00 Test Item Value Reference Range Interpretation Comments Bili Indirect Unable to See_Comment [Automated (test code = Bili Calculate message] T he system Indirect) which generated this result transmitted reference range : <=1.0. The reference range was not used to interpret this result as normal/abnormal . [facility] XavmpsrWCOMIMXBE1042-22-17 12:50:00 Test Item Value Reference Range Interpretation Comments HS Troponin I (test code = HS Troponin 15 I) [facility]zteyfoUTTQZQHTB0673-77-84 12:50:00 Test Item Value Reference Range Interpretation Comments pH Justin (test code = pH Justin) 7.35 1 7.28-7.42 [place] 711343-02-21 12:50:00 Test Item Value Reference Range Interpretation Comments pCO2 Justin (test code = pCO2 Justin) 55 38-52 [place] 711343-02-21 12:50:00 Test Item Value Reference Range Interpretation Comments pO2 Justin (test code = pO2 Justin) 43 20-49 [place] 711343-02-21 12:50:00 Test Item Value Reference Range Interpretation Comments HCO3 Justin (test code = HCO3 Justin) 30 22-26 [place] 711343-02-21 12:50:00 Test Item Value Reference Range Interpretation Comments BE Justin (test code = BE Justin) 3 -2-2 [facility]UcvsxmrWHSWQBQGT7096-44-12 12:50:00 Test Item Value Reference Range Interpretation Comments O2 Sat Justin (calc) (test code = O2 Sat 75.9 40.0-70.0 Justin (calc)) [facility]ApelwwzDWQUDWZFT4135-85-83 12:50:00 Test Item Value Reference Range Interpretation Comments Temp Justin (test code = Temp Justin) 37.0 [facility]HmvijhbKHAPWKMMZJ8773-09-00 12:50:00 Test Item Value Reference Range Interpretation Comments ACT (TEG) Rapid (test code = ACT (TEG) 113 s 86-118 Rapid) [facility] HospitalXfuxkcbKNTVLMMLLC7522-91-86 12:50:00 Test Item Value Reference Range Interpretation Comments Split Point Rapid (test code = Split 0.6 min Point Rapid) [place] 633383-02-21 12:50:00 Test Item Value Reference Range Interpretation Comments R-time Rapid (test code = R-time 0.7 min 0.4-0.7 Rapid) [place] 633383-02-21 12:50:00 Test Item Value Reference Range Interpretation Comments K-time Rapid (test code = K-time 1.1 min 0.6-2.3 Rapid) [place] 633383-02-21 12:50:00 Test Item Value Reference Range Interpretation Comments Angle Rapid (test code = Angle 78 degrees 64-80 Rapid) [place] 633383-02-21 12:50:00 Test Item Value Reference Range Interpretation Comments Max Amplitude Rapid (test code = Max 65 mm 52-71 Amplitude Rapid) [facility] CenterEgddxpzRPQJDFALVB1084-24-39 12:50:00 Test Item Value Reference Range Interpretation Comments G-value Rapid (test code = G-value 9.2 5.0-11.6 Rapid) [facility] GakdxodGXJAFNWSCZ4855-93-19 12:50:00 Test Item Value Reference Range Interpretation Comments Estimated % Lysis Rapid 0.0 See_Comment [Au tomated message] The (test code = Estimated syste m which generated % Lysis Rapid) this result t ransmitted reference range : <=7.5. The reference r christiano was not used to int erpret this result as normal/abnormal . [facility] SeklgndZFJQWRTXCN8861-47-67 12:50:00 Test Item Value Reference Range Interpretation Comments Plt Morph (test code = See Note 1(11/21/22 Plt Morph) 6:50 AM) [facility] SjqvnmzKOEPLQUODD1085-94-57 12:50:00 Test Item Value Reference Range Interpretation Comments Stomatocyte (test code = Stomatocyte) slight [facility] HWSRMKW6937-92-31 12:50:00 Test Item Value Reference Range Interpretation Comments ABO/Rh (test code = ABO/Rh) O POS [employer] XZXSOYD9020-16-95 12:50:00 Test Item Value Reference Range Interpretation Comments Antibody Scrn (test Negative (11/21/22 6:50 code = Antibody Scrn) AM) [employer] SXDWDIU2272-61-31 12:50:00 Test Item Value Reference Range Interpretation Comments ABO/Rh (test code = ABO/Rh) O POS [employer] PCXJULX4906-33-17 12:50:00 Test Item Value Reference Range Interpretation Comments Antibody Scrn (test Negative (11/21/22 6:50 code = Antibody Scrn) AM) [employer] Media[facility]ARDI[facility] PHITAXN8982-46-32 12:50:00 Test Item Value Reference Range Interpretation Comments HS Troponin I (test code = HS Troponin 15 I) [employer] [id number] 12:50:00 Test Item Value Reference Range Interpretation Comments Glucose Lvl (test code = Glucose Lvl) 99 70-99 [place] 454363-02-21 12:50:00 Test Item Value Reference Range Interpretation Comments BUN (test code = BUN) 38 7-22 [place] [id number] 12:50:00 Test Item Value Reference Range Interpretation Comments Creatinine Lvl (test code = Creatinine 2.38 0.50-1.40 Lvl) [place] 454363-02-21 12:50:00 Test Item Value Reference Range Interpretation Comments Sodium Lvl (test code = Sodium Lvl) 140 135-145 [place] 454363-02-21 12:50:00 Test Item Value Reference Range Interpretation Comments Potassium Lvl (test code = Potassium 3.9 3.5-5.1 Lvl) [place] 454363-02-21 12:50:00 Test Item Value Reference Range Interpretation Comments Chloride Lvl (test code = Chloride Lvl) 107 95-109 [place] 454363-02-21 12:50:00 Test Item Value Reference Range Interpretation Comments CO2 (test code = CO2) 27 24-32 [place] 454363-02-21 12:50:00 Test Item Value Reference Range Interpretation Comments Calcium Lvl (test code = Calcium Lvl) 8.1 8.5-10.5 [place] 454363-02-21 12:50:00 Test Item Value Reference Range Interpretation Comments AGAP (test code = AGAP) 9.9 10.0-20.0 [place] 454363-02-21 12:50:00 Test Item Value Reference Range Interpretation Comments eGFR (test code = eGFR) 20 [place] 454363-02-21 12:50:00 Test Item Value Reference Range Interpretation Comments Lactic Acid Lvl (test code = Lactic 0.7 0.5-2.2 Acid Lvl) [place] 454363-02-21 12:50:00 Test Item Value Reference Range Interpretation Comments Total Protein (test code = Total 6.1 6.4-8.4 Protein) [place] 454363-02-21 12:50:00 Test Item Value Reference Range Interpretation Comments Albumin Lvl (test code = Albumin Lvl) 2.9 3.5-5.0 [place] 454363-02-21 12:50:00 Test Item Value Reference Range Interpretation Comments Globulin (test code = Globulin) 3.2 2.7-4.2 [facility] [id number] 12:50:00 Test Item Value Reference Range Interpretation Comments A/G Ratio (test code = A/G Ratio) 0.9 1 0.7-1.6 [facility] [id number] 12:50:00 Test Item Value Reference Range Interpretation Comments ALT (test code = ALT) 16 See_Comment [Auto mated message] The system which ge nerated this result transmit sheba reference range : <=65. The reference range was not used to interpr et this result as edy l/abnormal. [facility] [id number] 12:50:00 Test Item Value Reference Range Interpretation Comments AST (test code = AST) 15 See_Comment [Auto mated message] The system which ge nerated this result transmit sheba reference range : <=37. The reference range was not used to interpr et this result as edy l/abnormal. [facility] [id number] 12:50:00 Test Item Value Reference Range Interpretation Comments Alk Phos (test code = Alk Phos) 96 39-136 [facility] [id number] 12:50:00 Test Item Value Reference Range Interpretation Comments Bili Total (test code = Bili Total) 0.2 0.2-1.3 [facility] [employer] [id number] 12:50:00 Test Item Value Reference Range Interpretation Comments Bili Direct (test code no gt See_Comment [Aut omated message] The = Bili Direct) system which generated this result tra nsmitted reference range : <=0.3. The reference r christiano was not used to int erpret this result as edy l/abnormal. [facility] [employer] [id number] 12:50:00 Test Item Value Reference Range Interpretation Comments Bili Indirect Unable to See_Comment [Automated (test code = Bili Calculate message] T he system Indirect) which generated this result transmitted reference range : <=1.0. The reference range was not used to interpret this result as normal/abnormal . [facility] CenterNgknaphZBBAUSYDH7174-38-38 12:50:00 Test Item Value Reference Range Interpretation Comments Ethanol Lvl (test code = Ethanol Lvl) no gt [place] 711343-02-21 12:50:00 Test Item Value Reference Range Interpretation Comments Etoh (%) (test code = Etoh (%)) no gt [facility]FLLUTYQPS8892-[facility]-88 12:50:00 Test Item Value Reference Range Interpretation Comments Lactic Acid Lvl (test code = Lactic 0.7 0.5-2.2 Acid Lvl) [place] [address]-02-21 12:50:00 Test Item Value Reference Range Interpretation Comments Total Protein (test code = Total 6.1 6.4-8.4 Protein) [place] [address]-02-21 12:50:00 Test Item Value Reference Range Interpretation Comments Albumin Lvl (test code = Albumin Lvl) 2.9 3.5-5.0 [place] [address]-02-21 12:50:00 Test Item Value Reference Range Interpretation Comments Globulin (test code = Globulin) 3.2 2.7-4.2 [place] [address]-02-21 12:50:00 Test Item Value Reference Range Interpretation Comments A/G Ratio (test code = A/G Ratio) 0.9 1 0.7-1.6 [place] [address]-02-21 12:50:00 Test Item Value Reference Range Interpretation Comments ALT (test code = ALT) 16 See_Comment [Auto mated message] The system which ge nerated this result transmit sheba reference range : <=65. The reference range was not used to interpr et this result as edy l/abnormal. [facility]ReztypyXBODCZZXY9992-74-25 12:50:00 Test Item Value Reference Range Interpretation Comments AST (test code = AST) 15 See_Comment [Auto mated message] The system which ge nerated this result transmit sheba reference range : <=37. The reference range was not used to interpr et this result as edy l/abnormal. [place] 711343-02-21 12:50:00 Test Item Value Reference Range Interpretation Comments Alk Phos (test code = Alk Phos) 96 39-136 [place] [address]-02-21 12:50:00 Test Item Value Reference Range Interpretation Comments Bili Total (test code = Bili Total) 0.2 0.2-1.3 [place] 711343-02-21 12:50:00 Test Item Value Reference Range Interpretation Comments Bili Direct (test code no gt See_Comment [Aut omated message] The = Bili Direct) system which generated this result tra nsmitted reference range : <=0.3. The reference r christiano was not used to int erpret this result as edy l/abnormal. [facility]iscoQtolqeiRFSSSQDPN7646-05-32 12:50:00 Test Item Value Reference Range Interpretation Comments Bili Indirect Unable to See_Comment [Automated (test code = Bili Calculate message] T he system Indirect) which generated this result transmitted reference range : <=1.0. The reference range was not used to interpret this result as normal/abnormal . [facility]iscoTvgkunnHEYLOJJDH1263-24-91 12:50:00 Test Item Value Reference Range Interpretation Comments HS Troponin I (test code = HS Troponin 15 I) [facility]iscoLyyzlhgQDUWUJWMS5869-21-45 12:50:00 Test Item Value Reference Range Interpretation Comments pH Justin (test code = pH Justin) 7.35 1 7.28-7.42 [facility]iscoVcwyrqvTDEVXQFSO1395-16-17 12:50:00 Test Item Value Reference Range Interpretation Comments pCO2 Justin (test code = pCO2 Justin) 55 38-52 [facility]iscoGkfkownICQFNIPAE5948-86-46 12:50:00 Test Item Value Reference Range Interpretation Comments pO2 Jsutin (test code = pO2 Justin) 43 20-49 [facility]iscoTybsnhsIZJIKQSIF0884-28-42 12:50:00 Test Item Value Reference Range Interpretation Comments HCO3 Justin (test code = HCO3 Justin) 30 22-26 [facility]iscoRhiewiqNMYVUVASQ1176-60-23 12:50:00 Test Item Value Reference Range Interpretation Comments BE Justin (test code = BE Justin) 3 -2-2 [facility]iscoShiuqfbWDROXVFUF0852-71-68 12:50:00 Test Item Value Reference Range Interpretation Comments O2 Sat Justin (calc) (test code = O2 Sat 75.9 40.0-70.0 Justin (calc)) [facility]iscoKxqpzblMKAQCSZJF6848-02-61 12:50:00 Test Item Value Reference Range Interpretation Comments Temp Justin (test code = Temp Justin) 37.0 [facility]HstpznrMMRGXDGYRU9651-12-92 12:50:00 Test Item Value Reference Range Interpretation Comments ACT (TEG) Rapid (test code = ACT (TEG) 113 s 86-118 Rapid) [place] 633383-02-21 12:50:00 Test Item Value Reference Range Interpretation Comments Split Point Rapid (test code = Split 0.6 min Point Rapid) [place] [address]-02-21 12:50:00 Test Item Value Reference Range Interpretation Comments R-time Rapid (test code = R-time 0.7 min 0.4-0.7 Rapid) [place] 633383-02-21 12:50:00 Test Item Value Reference Range Interpretation Comments K-time Rapid (test code = K-time 1.1 min 0.6-2.3 Rapid) [place] [address]-02-21 12:50:00 Test Item Value Reference Range Interpretation Comments Angle Rapid (test code = Angle 78 degrees 64-80 Rapid) [place] [address]-02-21 12:50:00 Test Item Value Reference Range Interpretation Comments Max Amplitude Rapid (test code = Max 65 mm 52-71 Amplitude Rapid) [place] [address]-02-21 12:50:00 Test Item Value Reference Range Interpretation Comments G-value Rapid (test code = G-value 9.2 5.0-11.6 Rapid) [place] [address]-02-21 12:50:00 Test Item Value Reference Range Interpretation Comments Estimated % Lysis Rapid 0.0 See_Comment [Au tomated message] The (test code = Estimated syste m which generated % Lysis Rapid) this result t ransmitted reference range : <=7.5. The reference r christiano was not used to int erpret this result as normal/abnormal . [facility] HospitalInpxnczRPXQMPGPWU6274-25-96 12:50:00 Test Item Value Reference Range Interpretation Comments Plt Morph (test code = See Note 1(11/21/22 Plt Morph) 6:50 AM) [place] 633383-02-21 12:50:00 Test Item Value Reference Range Interpretation Comments Stomatocyte (test code = Stomatocyte) slight [place] 633383-02-21 12:50:00 Test Item Value Reference Range Interpretation Comments WBC X 10x3 (test code = WBC X 10x3) 8.7 3.7-10.4 [place] 633383-02-21 12:50:00 Test Item Value Reference Range Interpretation Comments RBC X 10x6 (test code = RBC X 10x6) 3.56 4.20-5.40 [place] 633383-02-21 12:50:00 Test Item Value Reference Range Interpretation Comments Hgb (test code = Hgb) 10.4 12.0-16.0 [place] [address]-02-21 12:50:00 Test Item Value Reference Range Interpretation Comments Hct (test code = Hct) 32.3 36.0-48.0 [place] 633383-02-21 12:50:00 Test Item Value Reference Range Interpretation Comments MCV (test code = MCV) 90.8 80.0-98.0 [place] [address]-02-21 12:50:00 Test Item Value Reference Range Interpretation Comments MCH (test code = MCH) 29.3 pg 27.0-31.0 [place] 633383-02-21 12:50:00 Test Item Value Reference Range Interpretation Comments MCHC (test code = MCHC) 32.2 32.0-36.0 [place] 633383-02-21 12:50:00 Test Item Value Reference Range Interpretation Comments RDW (test code = RDW) 13.7 11.5-14.5 [place] [address]-02-21 12:50:00 Test Item Value Reference Range Interpretation Comments Platelet (test code = Platelet) 137 133-450 [place] 633383-02-21 12:50:00 Test Item Value Reference Range Interpretation Comments MPV (test code = MPV) 7.9 7.4-10.4 [place] [address]-02-21 12:50:00 Test Item Value Reference Range Interpretation Comments ACT (TEG) Rapid (test code = ACT (TEG) 113 s 86-118 Rapid) [place] 633383-02-21 12:50:00 Test Item Value Reference Range Interpretation Comments Split Point Rapid (test code = Split 0.6 min Point Rapid) [place] [address]-02-21 12:50:00 Test Item Value Reference Range Interpretation Comments R-time Rapid (test code = R-time 0.7 min 0.4-0.7 Rapid) [place] [address]-02-21 12:50:00 Test Item Value Reference Range Interpretation Comments K-time Rapid (test code = K-time 1.1 min 0.6-2.3 Rapid) [place] [address]-02-21 12:50:00 Test Item Value Reference Range Interpretation Comments Angle Rapid (test code = Angle 78 degrees 64-80 Rapid) [place] 633383-02-21 12:50:00 Test Item Value Reference Range Interpretation Comments Max Amplitude Rapid (test code = Max 65 mm 52-71 Amplitude Rapid) [place] [address]-02-21 12:50:00 Test Item Value Reference Range Interpretation Comments G-value Rapid (test code = G-value 9.2 5.0-11.6 Rapid) [place] [address]-02-21 12:50:00 Test Item Value Reference Range Interpretation Comments Estimated % Lysis Rapid 0.0 See_Comment [Au tomated message] The (test code = Estimated syste m which generated % Lysis Rapid) this result t ransmitted reference range : <=7.5. The reference r christiano was not used to int erpret this result as normal/abnormal . [place] 633383-02-21 12:50:00 Test Item Value Reference Range Interpretation Comments Plt Morph (test code = See Note 1(11/21/22 Plt Morph) 6:50 AM) [place] [address]-02-21 12:50:00 Test Item Value Reference Range Interpretation Comments Segs (test code = Segs) 64.1 45.0-75.0 [place] [address]-02-21 12:50:00 Test Item Value Reference Range Interpretation Comments Lymphocytes (test code = Lymphocytes) 22.0 20.0-40.0 [place] [address]-02-21 12:50:00 Test Item Value Reference Range Interpretation Comments Monocytes (test code = Monocytes) 8.3 2.0-12.0 [place] [address]-02-21 12:50:00 Test Item Value Reference Range Interpretation Comments Eosinophils (test code = 4.7 See_Comment [A utomated message] The Eosinophils) system which ge nerated this result tra nsmitted reference range : <=4.0. The reference r christiano was not used to int erpret this result as normal/abnormal . [place] 633383-02-21 12:50:00 Test Item Value Reference Range Interpretation Comments Basophils (test code = 0.9 See_Comment [Aut omated message] The Basophils) system which ge nerated this result tra nsmitted reference range : <=1.0. The reference r christiano was not used to int erpret this result as normal/abnormal . [facility] HospitalJcfdsaqGEYGRZAMUT7456-90-64 12:50:00 Test Item Value Reference Range Interpretation Comments Neutrophils # (test code = Neutrophils 5.6 1.5-8.1 #) [facility] HospitalUbcrjyzNSECLKJNQV6152-86-26 12:50:00 Test Item Value Reference Range Interpretation Comments Lymphocytes # (test code = Lymphocytes 1.9 1.0-5.5 #) [facility] HospitalNyattugTKDSKHEPMP7117-39-92 12:50:00 Test Item Value Reference Range Interpretation Comments Monocytes # (test code 0.7 See_Comment [Aut omated message] The = Monocytes #) system which generated this result tra nsmitted reference range : <=0.8. The reference r christiano was not used to int erpret this result as normal/abnormal . [facility] HospitalAlpeiqdOXVIZSWZBQ3142-55-93 12:50:00 Test Item Value Reference Range Interpretation Comments Eosinophils # (test code 0.4 See_Comment [A utomated message] The = Eosinophils #) system whic h generated this result tra nsmitted reference range : <=0.5. The reference r christiano was not used to int erpret this result as normal/abnormal . [facility] HospitalGosgkgdJKGMESUAIH9393-35-84 12:50:00 Test Item Value Reference Range Interpretation Comments Basophils # (test code 0.1 See_Comment [Aut omated message] The = Basophils #) system which generated this result tra nsmitted reference range : <=0.2. The reference r christiano was not used to int erpret this result as normal/abnormal . [facility] HospitalTrufnreWDZOESWOCJ5452-06-55 12:50:00 Test Item Value Reference Range Interpretation Comments Stomatocyte (test code = Stomatocyte) slight [facility] HospitalJadhmzzAECYORFIBH7340-56-12 12:50:00 Test Item Value Reference Range Interpretation Comments Ethanol Lvl (test code = Ethanol Lvl) no gt [facility] HospitalCndvoxvFWXQVMIAXJ8035-00-31 12:50:00 Test Item Value Reference Range Interpretation Comments Etoh (%) (test code = Etoh (%)) no gt [facility] CSXDPUR2914-17-04 12:50:00 Test Item Value Reference Range Interpretation Comments ABO/Rh (test code = ABO/Rh) O POS [facility] PZSHOFG6826-10-39 12:50:00 Test Item Value Reference Range Interpretation Comments Antibody Scrn (test Negative (11/21/22 6:50 code = Antibody Scrn) AM) [facility] [id number] 12:50:00 Test Item Value Reference Range Interpretation Comments ABO/Rh (test code = ABO/Rh) O POS [facility] [id number] 12:50:00 Test Item Value Reference Range Interpretation Comments Antibody Scrn (test Negative (11/21/22 6:50 code = Antibody Scrn) AM) [facility] LecorpioDIAC OKVZORB2396-95-03 12:50:00 Test Item Value Reference Range Interpretation Comments HS Troponin I (test code = HS Troponin 15 I) [facility] [employer] [id number] 12:50:00 Test Item Value Reference Range Interpretation Comments Glucose Lvl (test code = Glucose Lvl) 99 70-99 [facility] [employer] [id number] 12:50:00 Test Item Value Reference Range Interpretation Comments BUN (test code = BUN) 38 7-22 [facility] [employer] [id number] 12:50:00 Test Item Value Reference Range Interpretation Comments Creatinine Lvl (test code = Creatinine 2.38 0.50-1.40 Lvl) [facility] [employer] [id number] 12:50:00 Test Item Value Reference Range Interpretation Comments Sodium Lvl (test code = Sodium Lvl) 140 135-145 [facility] [employer] [id number] 12:50:00 Test Item Value Reference Range Interpretation Comments Potassium Lvl (test code = Potassium 3.9 3.5-5.1 Lvl) [facility] [employer] [id number] 12:50:00 Test Item Value Reference Range Interpretation Comments Chloride Lvl (test code = Chloride Lvl) 107 95-109 [facility] [employer] [id number] 12:50:00 Test Item Value Reference Range Interpretation Comments CO2 (test code = CO2) 27 24-32 [facility] [employer] [id number] 12:50:00 Test Item Value Reference Range Interpretation Comments Calcium Lvl (test code = Calcium Lvl) 8.1 8.5-10.5 [place] 454363-02-21 12:50:00 Test Item Value Reference Range Interpretation Comments AGAP (test code = AGAP) 9.9 10.0-20.0 [place] [address]-02-21 12:50:00 Test Item Value Reference Range Interpretation Comments eGFR (test code = eGFR) 20 [place] [address]-02-21 12:50:00 Test Item Value Reference Range Interpretation Comments Lactic Acid Lvl (test code = Lactic 0.7 0.5-2.2 Acid Lvl) [place] [address]-02-21 12:50:00 Test Item Value Reference Range Interpretation Comments Total Protein (test code = Total 6.1 6.4-8.4 Protein) [place] [address]-02-21 12:50:00 Test Item Value Reference Range Interpretation Comments Albumin Lvl (test code = Albumin Lvl) 2.9 3.5-5.0 [place] [address]-02-21 12:50:00 Test Item Value Reference Range Interpretation Comments Globulin (test code = Globulin) 3.2 2.7-4.2 [place] [address]-02-21 12:50:00 Test Item Value Reference Range Interpretation Comments A/G Ratio (test code = A/G Ratio) 0.9 1 0.7-1.6 [place] [address]-02-21 12:50:00 Test Item Value Reference Range Interpretation Comments ALT (test code = ALT) 16 See_Comment [Auto mated message] The system which ge nerated this result transmit shbea reference range : <=65. The reference range was not used to interpr et this result as edy l/abnormal. [place] [address]-02-21 12:50:00 Test Item Value Reference Range Interpretation Comments AST (test code = AST) 15 See_Comment [Auto mated message] The system which ge nerated this result transmit sheba reference range : <=37. The reference range was not used to interpr et this result as edy l/abnormal. [place] [address]-02-21 12:50:00 Test Item Value Reference Range Interpretation Comments Alk Phos (test code = Alk Phos) 96 39-136 [facility]2023-02-21 12:50:00 Test Item Value Reference Range Interpretation Comments Bili Total (test code = Bili Total) 0.2 0.2-1.3 [place] 454363-02-21 12:50:00 Test Item Value Reference Range Interpretation Comments Bili Direct (test code no gt See_Comment [Aut omated message] The = Bili Direct) system which generated this result tra nsmitted reference range : <=0.3. The reference r christiano was not used to int erpret this result as edy l/abnormal. [facility]2023-02-21 12:50:00 Test Item Value Reference Range Interpretation Comments Bili Indirect Unable to See_Comment [Automated (test code = Bili Calculate message] T he system Indirect) which generated this result transmitted reference range : <=1.0. The reference range was not used to interpret this result as normal/abnormal . [place] 711343-02-21 12:50:00 Test Item Value Reference Range Interpretation Comments Ethanol Lvl (test code = Ethanol Lvl) no gt [place] 711343-02-21 12:50:00 Test Item Value Reference Range Interpretation Comments Etoh (%) (test code = Etoh (%)) no gt [place] 711343-02-21 12:50:00 Test Item Value Reference Range Interpretation Comments Lactic Acid Lvl (test code = Lactic 0.7 0.5-2.2 Acid Lvl) [place] [address]-02-21 12:50:00 Test Item Value Reference Range Interpretation Comments Total Protein (test code = Total 6.1 6.4-8.4 Protein) [place] [address]-02-21 12:50:00 Test Item Value Reference Range Interpretation Comments Albumin Lvl (test code = Albumin Lvl) 2.9 3.5-5.0 [place] [address]-02-21 12:50:00 Test Item Value Reference Range Interpretation Comments Globulin (test code = Globulin) 3.2 2.7-4.2 [place] [address]-02-21 12:50:00 Test Item Value Reference Range Interpretation Comments A/G Ratio (test code = A/G Ratio) 0.9 1 0.7-1.6 [facility]RKNRGJZDC0915[facility]44[facility]37 12:50:00 Test Item Value Reference Range Interpretation Comments ALT (test code = ALT) 16 See_Comment [Auto mated message] The system which ge nerated this result transmit sheba reference range : <=65. The reference range was not used to interpr et this result as edy l/abnormal. [facility] QspotycLOITHGMRP1848-23-90 12:50:00 Test Item Value Reference Range Interpretation Comments AST (test code = AST) 15 See_Comment [Auto mated message] The system which ge nerated this result transmit sheba reference range : <=37. The reference range was not used to interpr et this result as edy l/abnormal. [facility] XxlliccTKRNVEVOS9852-81-08 12:50:00 Test Item Value Reference Range Interpretation Comments Alk Phos (test code = Alk Phos) 96 39-136 [facility] CenterPbnutanMFHZLKVJG0482-49-02 12:50:00 Test Item Value Reference Range Interpretation Comments Bili Total (test code = Bili Total) 0.2 0.2-1.3 [facility] CenterKwgttulAHOLJRUID6312-45-73 12:50:00 Test Item Value Reference Range Interpretation Comments Bili Direct (test code no gt See_Comment [Aut omated message] The = Bili Direct) system which generated this result tra nsmitted reference range : <=0.3. The reference r christiano was not used to int erpret this result as edy l/abnormal. [facility] CenterLmgfozkEEWLEIWEY6130-31-38 12:50:00 Test Item Value Reference Range Interpretation Comments Bili Indirect Unable to See_Comment [Automated (test code = Bili Calculate message] T he system Indirect) which generated this result transmitted reference range : <=1.0. The reference range was not used to interpret this result as normal/abnormal . [facility] LgrvvhiVMMNSJXRW6809-38-17 12:50:00 Test Item Value Reference Range Interpretation Comments HS Troponin I (test code = HS Troponin 15 I) [facility] CenterIoutpupZSNDXANZM1788-34-80 12:50:00 Test Item Value Reference Range Interpretation Comments pH Justin (test code = pH Justin) 7.35 1 7.28-7.42 [facility] CenterLltoruvLAOJMEMZD1345-12-98 12:50:00 Test Item Value Reference Range Interpretation Comments pCO2 Justin (test code = pCO2 Justin) 55 38-52 [facility]pajtxqLOQQEHTSV2687-12-03 12:50:00 Test Item Value Reference Range Interpretation Comments pO2 Justin (test code = pO2 Justin) 43 20-49 [place] 711343-02-21 12:50:00 Test Item Value Reference Range Interpretation Comments HCO3 Justin (test code = HCO3 Justin) 30 22-26 [place] 711343-02-21 12:50:00 Test Item Value Reference Range Interpretation Comments BE Justin (test code = BE Justin) 3 -2-2 [facility]iscoRzbedrkXGWXWKVVX9539-78-35 12:50:00 Test Item Value Reference Range Interpretation Comments O2 Sat Justin (calc) (test code = O2 Sat 75.9 40.0-70.0 Justin (calc)) [facility]iscoUtucnrdEXNAAIDCH9695-35-71 12:50:00 Test Item Value Reference Range Interpretation Comments Temp Justin (test code = Temp Justin) 37.0 [facility] HospitalOrqdlztQXYVIPQSPV0004-80-11 12:50:00 Test Item Value Reference Range Interpretation Comments ACT (TEG) Rapid (test code = ACT (TEG) 113 s 86-118 Rapid) [facility] HospitalXmhxcisRJCOPVRFWK5994-30-07 12:50:00 Test Item Value Reference Range Interpretation Comments Split Point Rapid (test code = Split 0.6 min Point Rapid) [place] [id number] 12:50:00 Test Item Value Reference Range Interpretation Comments R-time Rapid (test code = R-time 0.7 min 0.4-0.7 Rapid) [place] [address]383-02-21 12:50:00 Test Item Value Reference Range Interpretation Comments K-time Rapid (test code = K-time 1.1 min 0.6-2.3 Rapid) [place] 633383-02-21 12:50:00 Test Item Value Reference Range Interpretation Comments Angle Rapid (test code = Angle 78 degrees 64-80 Rapid) [place] 633383-02-21 12:50:00 Test Item Value Reference Range Interpretation Comments Max Amplitude Rapid (test code = Max 65 mm 52-71 Amplitude Rapid) [place] 633383-02-21 12:50:00 Test Item Value Reference Range Interpretation Comments G-value Rapid (test code = G-value 9.2 5.0-11.6 Rapid) [place] 633383-02-21 12:50:00 Test Item Value Reference Range Interpretation Comments Estimated % Lysis Rapid 0.0 See_Comment [Au tomated message] The (test code = Estimated syste m which generated % Lysis Rapid) this result t ransmitted reference range : <=7.5. The reference r christiano was not used to int erpret this result as normal/abnormal . [place] [address]383-02-21 12:50:00 Test Item Value Reference Range Interpretation Comments Plt Morph (test code = See Note 1(11/21/22 Plt Morph) 6:50 AM) [place] [address]383-02-21 12:50:00 Test Item Value Reference Range Interpretation Comments Stomatocyte (test code = Stomatocyte) slight [place] [address]383-02-21 12:50:00 Test Item Value Reference Range Interpretation Comments WBC X 10x3 (test code = WBC X 10x3) 8.7 3.7-10.4 [place] 633383-02-21 12:50:00 Test Item Value Reference Range Interpretation Comments RBC X 10x6 (test code = RBC X 10x6) 3.56 4.20-5.40 [place] [address]-02-21 12:50:00 Test Item Value Reference Range Interpretation Comments Hgb (test code = Hgb) 10.4 12.0-16.0 [place] [address]-02-21 12:50:00 Test Item Value Reference Range Interpretation Comments Hct (test code = Hct) 32.3 36.0-48.0 [place] [address]-02-21 12:50:00 Test Item Value Reference Range Interpretation Comments MCV (test code = MCV) 90.8 80.0-98.0 [place] [address]-02-21 12:50:00 Test Item Value Reference Range Interpretation Comments MCH (test code = MCH) 29.3 pg 27.0-31.0 [place] [address]-02-21 12:50:00 Test Item Value Reference Range Interpretation Comments MCHC (test code = MCHC) 32.2 32.0-36.0 [place] [address]-02-21 12:50:00 Test Item Value Reference Range Interpretation Comments RDW (test code = RDW) 13.7 11.5-14.5 [place] [address]-02-21 12:50:00 Test Item Value Reference Range Interpretation Comments Platelet (test code = Platelet) 137 133-450 [place] [address]-02-21 12:50:00 Test Item Value Reference Range Interpretation Comments MPV (test code = MPV) 7.9 7.4-10.4 [place] [address]-02-21 12:50:00 Test Item Value Reference Range Interpretation Comments ACT (TEG) Rapid (test code = ACT (TEG) 113 s 86-118 Rapid) [place] [address]-02-21 12:50:00 Test Item Value Reference Range Interpretation Comments Split Point Rapid (test code = Split 0.6 min Point Rapid) [place] [address]-02-21 12:50:00 Test Item Value Reference Range Interpretation Comments R-time Rapid (test code = R-time 0.7 min 0.4-0.7 Rapid) [place] [address]-02-21 12:50:00 Test Item Value Reference Range Interpretation Comments K-time Rapid (test code = K-time 1.1 min 0.6-2.3 Rapid) [place] [address]-02-21 12:50:00 Test Item Value Reference Range Interpretation Comments Angle Rapid (test code = Angle 78 degrees 64-80 Rapid) [place] [address]-02-21 12:50:00 Test Item Value Reference Range Interpretation Comments Max Amplitude Rapid (test code = Max 65 mm 52-71 Amplitude Rapid) [place] [address]-02-21 12:50:00 Test Item Value Reference Range Interpretation Comments G-value Rapid (test code = G-value 9.2 5.0-11.6 Rapid) [place] [address]-02-21 12:50:00 Test Item Value Reference Range Interpretation Comments Estimated % Lysis Rapid 0.0 See_Comment [Au tomated message] The (test code = Estimated syste m which generated % Lysis Rapid) this result t ransmitted reference range : <=7.5. The reference r christiano was not used to int erpret this result as normal/abnormal . [place] [address]383-02-21 12:50:00 Test Item Value Reference Range Interpretation Comments Plt Morph (test code = See Note 1(2/21/23 Plt Morph) 6:50 AM) [facility]UT[facility]ORK[facility]X4447[facility]28-50 12:50:00 Test Item Value Reference Range Interpretation Comments Segs (test code = Segs) 64.1 45.0-75.0 [place] [address]383-02-21 12:50:00 Test Item Value Reference Range Interpretation Comments Lymphocytes (test code = Lymphocytes) 22.0 20.0-40.0 [place] [address]383-02-21 12:50:00 Test Item Value Reference Range Interpretation Comments Monocytes (test code = Monocytes) 8.3 2.0-12.0 [place] [address]383-02-21 12:50:00 Test Item Value Reference Range Interpretation Comments Eosinophils (test code = 4.7 See_Comment [A utomated message] The Eosinophils) system which ge nerated this result tra nsmitted reference range : <=4.0. The reference r christiano was not used to int erpret this result as normal/abnormal . [place] [address]383-02-21 12:50:00 Test Item Value Reference Range Interpretation Comments Basophils (test code = 0.9 See_Comment [Aut omated message] The Basophils) system which ge nerated this result tra nsmitted reference range : <=1.0. The reference r christiano was not used to int erpret this result as normal/abnormal . [facility] HospitalWyicpavZOVGWCHFZT4453-23-30 12:50:00 Test Item Value Reference Range Interpretation Comments Neutrophils # (test code = Neutrophils 5.6 1.5-8.1 #) [place] [address]383-02-21 12:50:00 Test Item Value Reference Range Interpretation Comments Lymphocytes # (test code = Lymphocytes 1.9 1.0-5.5 #) [place] [address]383-02-21 12:50:00 Test Item Value Reference Range Interpretation Comments Monocytes # (test code 0.7 See_Comment [Aut omated message] The = Monocytes #) system which generated this result tra nsmitted reference range : <=0.8. The reference r christiano was not used to int erpret this result as normal/abnormal . [place] [address]383-02-21 12:50:00 Test Item Value Reference Range Interpretation Comments Eosinophils # (test code 0.4 See_Comment [A utomated message] The = Eosinophils #) system whic h generated this result tra nsmitted reference range : <=0.5. The reference r christiano was not used to int erpret this result as normal/abnormal . [facility] LlxbdngTQAPBZMLTQ0320-39-93 12:50:00 Test Item Value Reference Range Interpretation Comments Basophils # (test code 0.1 See_Comment [Aut omated message] The = Basophils #) system which generated this result tra nsmitted reference range : <=0.2. The reference r christiano was not used to int erpret this result as normal/abnormal . [facility] SksjywfWDUNHRETIU3094-09-17 12:50:00 Test Item Value Reference Range Interpretation Comments Stomatocyte (test code = Stomatocyte) slight [facility] SdxgmxpUIKZUOJALA5856-42-84 12:50:00 Test Item Value Reference Range Interpretation Comments Ethanol Lvl (test code = Ethanol Lvl) no gt [facility] EmmapsqGQKIYPTJOY4554-66-68 12:50:00 Test Item Value Reference Range Interpretation Comments Etoh (%) (test code = Etoh (%)) no gt [facility] [employer] [id number] 12:50:00 Test Item Value Reference Range Interpretation Comments ABO/Rh (test code = ABO/Rh) O POS [facility] [employer] [id number] 12:50:00 Test Item Value Reference Range Interpretation Comments Antibody Scrn (test Negative (11/21/22 6:50 code = Antibody Scrn) AM) [facility] [employer] [id number] 12:50:00 Test Item Value Reference Range Interpretation Comments ABO/Rh (test code = ABO/Rh) O POS [facility] [employer] [id number] 12:50:00 Test Item Value Reference Range Interpretation Comments Antibody Scrn (test Negative (11/21/22 6:50 code = Antibody Scrn) AM) [facility] [employer] TechnologyCARDIAC IQSCOHO5749-31-01 12:50:00 Test Item Value Reference Range Interpretation Comments HS Troponin I (test code = HS Troponin 15 I) [facility] [employer] [id number] 12:50:00 Test Item Value Reference Range Interpretation Comments Glucose Lvl (test code = Glucose Lvl) 99 70-99 [place]363-02-21 12:50:00 Test Item Value Reference Range Interpretation Comments BUN (test code = BUN) 38 7-22 [place] 454363-02-21 12:50:00 Test Item Value Reference Range Interpretation Comments Creatinine Lvl (test code = Creatinine 2.38 0.50-1.40 Lvl) [place]363-02-21 12:50:00 Test Item Value Reference Range Interpretation Comments Sodium Lvl (test code = Sodium Lvl) 140 135-145 [place]363-02-21 12:50:00 Test Item Value Reference Range Interpretation Comments Potassium Lvl (test code = Potassium 3.9 3.5-5.1 Lvl) [place]363-02-21 12:50:00 Test Item Value Reference Range Interpretation Comments Chloride Lvl (test code = Chloride Lvl) 107 95-109 [place] 454363-02-21 12:50:00 Test Item Value Reference Range Interpretation Comments CO2 (test code = CO2) 27 24-32 [place]363-02-21 12:50:00 Test Item Value Reference Range Interpretation Comments Calcium Lvl (test code = Calcium Lvl) 8.1 8.5-10.5 [place]363-02-21 12:50:00 Test Item Value Reference Range Interpretation Comments AGAP (test code = AGAP) 9.9 10.0-20.0 [place] 454363-02-21 12:50:00 Test Item Value Reference Range Interpretation Comments eGFR (test code = eGFR) 20 [place] 454363-02-21 12:50:00 Test Item Value Reference Range Interpretation Comments Lactic Acid Lvl (test code = Lactic 0.7 0.5-2.2 Acid Lvl) [place]363-02-21 12:50:00 Test Item Value Reference Range Interpretation Comments Total Protein (test code = Total 6.1 6.4-8.4 Protein) [place]363-02-21 12:50:00 Test Item Value Reference Range Interpretation Comments Albumin Lvl (test code = Albumin Lvl) 2.9 3.5-5.0 [place]363-02-21 12:50:00 Test Item Value Reference Range Interpretation Comments Globulin (test code = Globulin) 3.2 2.7-4.2 [facility] [id number] 12:50:00 Test Item Value Reference Range Interpretation Comments A/G Ratio (test code = A/G Ratio) 0.9 1 0.7-1.6 [facility] [employer] [id number] 12:50:00 Test Item Value Reference Range Interpretation Comments ALT (test code = ALT) 16 See_Comment [Auto mated message] The system which ge nerated this result transmit sheba reference range : <=65. The reference range was not used to interpr et this result as edy l/abnormal. [facility] [id number] 12:50:00 Test Item Value Reference Range Interpretation Comments AST (test code = AST) 15 See_Comment [Auto mated message] The system which ge nerated this result transmit sheba reference range : <=37. The reference range was not used to interpr et this result as edy l/abnormal. [facility] [id number] 12:50:00 Test Item Value Reference Range Interpretation Comments Alk Phos (test code = Alk Phos) 96 39-136 [facility] [id number] 12:50:00 Test Item Value Reference Range Interpretation Comments Bili Total (test code = Bili Total) 0.2 0.2-1.3 [facility] [employer] [id number] 12:50:00 Test Item Value Reference Range Interpretation Comments Bili Direct (test code no gt See_Comment [Aut omated message] The = Bili Direct) system which generated this result tra nsmitted reference range : <=0.3. The reference r christiano was not used to int erpret this result as edy l/abnormal. [facility] [employer] [id number] 12:50:00 Test Item Value Reference Range Interpretation Comments Bili Indirect Unable to See_Comment [Automated (test code = Bili Calculate message] T he system Indirect) which generated this result transmitted reference range : <=1.0. The reference range was not used to interpret this result as normal/abnormal . [facility] CenterWnrxiilHVSYHBLTH1150-86-63 12:50:00 Test Item Value Reference Range Interpretation Comments Ethanol Lvl (test code = Ethanol Lvl) no gt [facility] CenterBjzmwziDGLXTDHMN6177-35-76 12:50:00 Test Item Value Reference Range Interpretation Comments Etoh (%) (test code = Etoh (%)) no gt [facility]WDVDFRMU3888[facility] 12:50:00 Test Item Value Reference Range Interpretation Comments Lactic Acid Lvl (test code = Lactic 0.7 0.5-2.2 Acid Lvl) [facility]iscoGccdityWDDUYQHNF8878-77-58 12:50:00 Test Item Value Reference Range Interpretation Comments Total Protein (test code = Total 6.1 6.4-8.4 Protein) [facility]iscoMeqegqgJOVZCJPOL7087-11-83 12:50:00 Test Item Value Reference Range Interpretation Comments Albumin Lvl (test code = Albumin Lvl) 2.9 3.5-5.0 [place] 711343-02-21 12:50:00 Test Item Value Reference Range Interpretation Comments Globulin (test code = Globulin) 3.2 2.7-4.2 [facility]iscoNncmfffNWIAOMPHZ7787-91-72 12:50:00 Test Item Value Reference Range Interpretation Comments A/G Ratio (test code = A/G Ratio) 0.9 1 0.7-1.6 [place] 711343-02-21 12:50:00 Test Item Value Reference Range Interpretation Comments ALT (test code = ALT) 16 See_Comment [Auto mated message] The system which ge nerated this result transmit sheba reference range : <=65. The reference range was not used to interpr et this result as edy l/abnormal. [place] 711343-02-21 12:50:00 Test Item Value Reference Range Interpretation Comments AST (test code = AST) 15 See_Comment [Auto mated message] The system which ge nerated this result transmit sheba reference range : <=37. The reference range was not used to interpr et this result as edy l/abnormal. [facility]iscoXkaxhxhWUTACZKKE5075-88-41 12:50:00 Test Item Value Reference Range Interpretation Comments Alk Phos (test code = Alk Phos) 96 39-136 [place] 711343-02-21 12:50:00 Test Item Value Reference Range Interpretation Comments Bili Total (test code = Bili Total) 0.2 0.2-1.3 [place] 711343-02-21 12:50:00 Test Item Value Reference Range Interpretation Comments Bili Direct (test code no gt See_Comment [Aut omated message] The = Bili Direct) system which generated this result tra nsmitted reference range : <=0.3. The reference r christiano was not used to int erpret this result as edy l/abnormal. [facility]iscoBiveqjhNRJNSYWUY9762-83-72 12:50:00 Test Item Value Reference Range Interpretation Comments Bili Indirect Unable to See_Comment [Automated (test code = Bili Calculate message] T he system Indirect) which generated this result transmitted reference range : <=1.0. The reference range was not used to interpret this result as normal/abnormal . [facility]iscoPeqnfseOYILAKGRP1277-86-30 12:50:00 Test Item Value Reference Range Interpretation Comments HS Troponin I (test code = HS Troponin 15 I) [facility]iscoWyzmswnFMVNLUEBS2386-60-41 12:50:00 Test Item Value Reference Range Interpretation Comments pH Justin (test code = pH Justin) 7.35 1 7.28-7.42 [place] 711343-02-21 12:50:00 Test Item Value Reference Range Interpretation Comments pCO2 Justin (test code = pCO2 Justin) 55 38-52 [place] 711343-02-21 12:50:00 Test Item Value Reference Range Interpretation Comments pO2 Justin (test code = pO2 Justin) 43 20-49 [facility]iscoLqfcppzUENTMTDID9494-36-95 12:50:00 Test Item Value Reference Range Interpretation Comments HCO3 Justin (test code = HCO3 Justin) 30 22-26 [place] 711343-02-21 12:50:00 Test Item Value Reference Range Interpretation Comments BE Justin (test code = BE Justin) 3 -2-2 [facility]iscoHkbvsqxQWOITDILT3582-85-54 12:50:00 Test Item Value Reference Range Interpretation Comments O2 Sat Justin (calc) (test code = O2 Sat 75.9 40.0-70.0 Justin (calc)) [facility]iscoTgqfmxbYMVADHSBJ2357-83-10 12:50:00 Test Item Value Reference Range Interpretation Comments Temp Justin (test code = Temp Justin) 37.0 [place] [address]383-02-21 12:50:00 Test Item Value Reference Range Interpretation Comments ACT (TEG) Rapid (test code = ACT (TEG) 113 s 86-118 Rapid) [facility] HospitalUrqsxcqQNZGRFCNZG5036-71-62 12:50:00 Test Item Value Reference Range Interpretation Comments Split Point Rapid (test code = Split 0.6 min Point Rapid) [place] [address]-02-21 12:50:00 Test Item Value Reference Range Interpretation Comments R-time Rapid (test code = R-time 0.7 min 0.4-0.7 Rapid) [place] [address]-02-21 12:50:00 Test Item Value Reference Range Interpretation Comments K-time Rapid (test code = K-time 1.1 min 0.6-2.3 Rapid) [place] [address]-02-21 12:50:00 Test Item Value Reference Range Interpretation Comments Angle Rapid (test code = Angle 78 degrees 64-80 Rapid) [place] [address]-02-21 12:50:00 Test Item Value Reference Range Interpretation Comments Max Amplitude Rapid (test code = Max 65 mm 52-71 Amplitude Rapid) [place] [address]-02-21 12:50:00 Test Item Value Reference Range Interpretation Comments G-value Rapid (test code = G-value 9.2 5.0-11.6 Rapid) [place] [address]-02-21 12:50:00 Test Item Value Reference Range Interpretation Comments Estimated % Lysis Rapid 0.0 See_Comment [Au tomated message] The (test code = Estimated syste m which generated % Lysis Rapid) this result t ransmitted reference range : <=7.5. The reference r christiano was not used to int erpret this result as normal/abnormal . [facility] HospitalIobqejfDOEXTRVBCD4362-92-18 12:50:00 Test Item Value Reference Range Interpretation Comments Plt Morph (test code = See Note 1(11/21/22 Plt Morph) 6:50 AM) [place] [address]-02-21 12:50:00 Test Item Value Reference Range Interpretation Comments Stomatocyte (test code = Stomatocyte) slight [place] [address]-02-21 12:50:00 Test Item Value Reference Range Interpretation Comments WBC X 10x3 (test code = WBC X 10x3) 8.7 3.7-10.4 [place] [address]-02-21 12:50:00 Test Item Value Reference Range Interpretation Comments RBC X 10x6 (test code = RBC X 10x6) 3.56 4.20-5.40 [place] [address]-02-21 12:50:00 Test Item Value Reference Range Interpretation Comments Hgb (test code = Hgb) 10.4 12.0-16.0 [place] [address]383-02-21 12:50:00 Test Item Value Reference Range Interpretation Comments Hct (test code = Hct) 32.3 36.0-48.0 [place] [address]383-02-21 12:50:00 Test Item Value Reference Range Interpretation Comments MCV (test code = MCV) 90.8 80.0-98.0 [place] [address]-02-21 12:50:00 Test Item Value Reference Range Interpretation Comments MCH (test code = MCH) 29.3 pg 27.0-31.0 [place] 633383-02-21 12:50:00 Test Item Value Reference Range Interpretation Comments MCHC (test code = MCHC) 32.2 32.0-36.0 [place] [address]383-02-21 12:50:00 Test Item Value Reference Range Interpretation Comments RDW (test code = RDW) 13.7 11.5-14.5 [place] [address]383-02-21 12:50:00 Test Item Value Reference Range Interpretation Comments Platelet (test code = Platelet) 137 133-450 [place] 633383-02-21 12:50:00 Test Item Value Reference Range Interpretation Comments MPV (test code = MPV) 7.9 7.4-10.4 [place] [address]-02-21 12:50:00 Test Item Value Reference Range Interpretation Comments ACT (TEG) Rapid (test code = ACT (TEG) 113 s 86-118 Rapid) [place] [address]383-02-21 12:50:00 Test Item Value Reference Range Interpretation Comments Split Point Rapid (test code = Split 0.6 min Point Rapid) [place] [address]-02-21 12:50:00 Test Item Value Reference Range Interpretation Comments R-time Rapid (test code = R-time 0.7 min 0.4-0.7 Rapid) [place] [address]-02-21 12:50:00 Test Item Value Reference Range Interpretation Comments K-time Rapid (test code = K-time 1.1 min 0.6-2.3 Rapid) [place] [address]-02-21 12:50:00 Test Item Value Reference Range Interpretation Comments Angle Rapid (test code = Angle 78 degrees 64-80 Rapid) [place] [address]383-02-21 12:50:00 Test Item Value Reference Range Interpretation Comments Max Amplitude Rapid (test code = Max 65 mm 52-71 Amplitude Rapid) [place] [address]383-02-21 12:50:00 Test Item Value Reference Range Interpretation Comments G-value Rapid (test code = G-value 9.2 5.0-11.6 Rapid) [place] [address]-02-21 12:50:00 Test Item Value Reference Range Interpretation Comments Estimated % Lysis Rapid 0.0 See_Comment [Au tomated message] The (test code = Estimated syste m which generated % Lysis Rapid) this result t ransmitted reference range : <=7.5. The reference r christiano was not used to int erpret this result as normal/abnormal . [place] [address]383-02-21 12:50:00 Test Item Value Reference Range Interpretation Comments Plt Morph (test code = See Note 1(11/21/22 Plt Morph) 6:50 AM) [place] [address]-02-21 12:50:00 Test Item Value Reference Range Interpretation Comments Segs (test code = Segs) 64.1 45.0-75.0 [place] [address]-02-21 12:50:00 Test Item Value Reference Range Interpretation Comments Lymphocytes (test code = Lymphocytes) 22.0 20.0-40.0 [place] [address]-02-21 12:50:00 Test Item Value Reference Range Interpretation Comments Monocytes (test code = Monocytes) 8.3 2.0-12.0 [place] [address]-02-21 12:50:00 Test Item Value Reference Range Interpretation Comments Eosinophils (test code = 4.7 See_Comment [A utomated message] The Eosinophils) system which ge nerated this result tra nsmitted reference range : <=4.0. The reference r christiano was not used to int erpret this result as normal/abnormal . [place] [address]383-02-21 12:50:00 Test Item Value Reference Range Interpretation Comments Basophils (test code = 0.9 See_Comment [Aut omated message] The Basophils) system which ge nerated this result tra nsmitted reference range : <=1.0. The reference r christiano was not used to int erpret this result as normal/abnormal . [facility] HospitalDoauxjsLAPFBWBZPI0130-36-65 12:50:00 Test Item Value Reference Range Interpretation Comments Neutrophils # (test code = Neutrophils 5.6 1.5-8.1 #) [facility] HospitalXwmtxjcDVBJGQJRTY4462-20-22 12:50:00 Test Item Value Reference Range Interpretation Comments Lymphocytes # (test code = Lymphocytes 1.9 1.0-5.5 #) [facility] HospitalJlkmwgbSMMFPPJWHW2593-77-34 12:50:00 Test Item Value Reference Range Interpretation Comments Monocytes # (test code 0.7 See_Comment [Aut omated message] The = Monocytes #) system which generated this result tra nsmitted reference range : <=0.8. The reference r christiano was not used to int erpret this result as normal/abnormal . [facility] HospitalUgfvnymEUDOSHYASQ4463-55-58 12:50:00 Test Item Value Reference Range Interpretation Comments Eosinophils # (test code 0.4 See_Comment [A utomated message] The = Eosinophils #) system whic h generated this result tra nsmitted reference range : <=0.5. The reference r christiano was not used to int erpret this result as normal/abnormal . [facility] HospitalNzjpeajYAFBYHIAHR3407-81-82 12:50:00 Test Item Value Reference Range Interpretation Comments Basophils # (test code 0.1 See_Comment [Aut omated message] The = Basophils #) system which generated this result tra nsmitted reference range : <=0.2. The reference r christiano was not used to int erpret this result as normal/abnormal . [facility] HospitalRpnsoucEXEASIUMAP7954-43-19 12:50:00 Test Item Value Reference Range Interpretation Comments Stomatocyte (test code = Stomatocyte) slight [facility] HospitalNeiurfcAGKVKZJPTZ5669-27-93 12:50:00 Test Item Value Reference Range Interpretation Comments Ethanol Lvl (test code = Ethanol Lvl) no gt [facility] HospitalMtarlveONBKKLXGMO3062-49-54 12:50:00 Test Item Value Reference Range Interpretation Comments Etoh (%) (test code = Etoh (%)) no gt [facility] [id number] 12:50:00 Test Item Value Reference Range Interpretation Comments ABO/Rh (test code = ABO/Rh) O POS [facility] [employer] XTZQHHK2625-50-20 12:50:00 Test Item Value Reference Range Interpretation Comments Antibody Scrn (test Negative (11/21/22 6:50 code = Antibody Scrn) AM) [facility] [employer] [id number] 12:50:00 Test Item Value Reference Range Interpretation Comments ABO/Rh (test code = ABO/Rh) O POS [facility] [employer] [id number] 12:50:00 Test Item Value Reference Range Interpretation Comments Antibody Scrn (test Negative (11/21/22 6:50 code = Antibody Scrn) AM) [facility] [employer] [id number] 12:50:00 Test Item Value Reference Range Interpretation Comments HS Troponin I (test code = HS Troponin 15 I) [facility] [employer] [id number] 12:50:00 Test Item Value Reference Range Interpretation Comments Glucose Lvl (test code = Glucose Lvl) 99 70-99 [facility]2023-02-21 12:50:00 Test Item Value Reference Range Interpretation Comments BUN (test code = BUN) 38 7-22 [facility]2023-02-21 12:50:00 Test Item Value Reference Range Interpretation Comments Creatinine Lvl (test code = Creatinine 2.38 0.50-1.40 Lvl) [facility]2023-02-21 12:50:00 Test Item Value Reference Range Interpretation Comments Sodium Lvl (test code = Sodium Lvl) 140 135-145 [facility]2023-02-21 12:50:00 Test Item Value Reference Range Interpretation Comments Potassium Lvl (test code = Potassium 3.9 3.5-5.1 Lvl) [facility]2023-02-21 12:50:00 Test Item Value Reference Range Interpretation Comments Chloride Lvl (test code = Chloride Lvl) 107 95-109 [facility]2023-02-21 12:50:00 Test Item Value Reference Range Interpretation Comments CO2 (test code = CO2) 27 24-32 [facility]2023-02-21 12:50:00 Test Item Value Reference Range Interpretation Comments Calcium Lvl (test code = Calcium Lvl) 8.1 8.5-10.5 [place] 454363-02-21 12:50:00 Test Item Value Reference Range Interpretation Comments AGAP (test code = AGAP) 9.9 10.0-20.0 [place] 454363-02-21 12:50:00 Test Item Value Reference Range Interpretation Comments eGFR (test code = eGFR) 20 [place] 454363-02-21 12:50:00 Test Item Value Reference Range Interpretation Comments Lactic Acid Lvl (test code = Lactic 0.7 0.5-2.2 Acid Lvl) [place] 454363-02-21 12:50:00 Test Item Value Reference Range Interpretation Comments Total Protein (test code = Total 6.1 6.4-8.4 Protein) [place] 454363-02-21 12:50:00 Test Item Value Reference Range Interpretation Comments Albumin Lvl (test code = Albumin Lvl) 2.9 3.5-5.0 [place] 454363-02-21 12:50:00 Test Item Value Reference Range Interpretation Comments Globulin (test code = Globulin) 3.2 2.7-4.2 [facility] EventsTRACY [place] [id number] 12:50:00 Test Item Value Reference Range Interpretation Comments A/G Ratio (test code = A/G Ratio) 0.9 1 0.7-1.6 [place] 454363-02-21 12:50:00 Test Item Value Reference Range Interpretation Comments ALT (test code = ALT) 16 See_Comment [Auto mated message] The system which ge nerated this result transmit sheba reference range : <=65. The reference range was not used to interpr et this result as edy l/abnormal. [facility] CenterRysto [id number] 12:50:00 Test Item Value Reference Range Interpretation Comments AST (test code = AST) 15 See_Comment [Auto mated message] The system which ge nerated this result transmit sheba reference range : <=37. The reference range was not used to interpr et this result as edy l/abnormal. [facility] [id number] 12:50:00 Test Item Value Reference Range Interpretation Comments Alk Phos (test code = Alk Phos) 96 39-136 [place] 454363-02-21 12:50:00 Test Item Value Reference Range Interpretation Comments Bili Total (test code = Bili Total) 0.2 0.2-1.3 [place] 454363-02-21 12:50:00 Test Item Value Reference Range Interpretation Comments Bili Direct (test code no gt See_Comment [Aut omated message] The = Bili Direct) system which generated this result tra nsmitted reference range : <=0.3. The reference r christiano was not used to int erpret this result as edy l/abnormal. [facility]2023-02-21 12:50:00 Test Item Value Reference Range Interpretation Comments Bili Indirect Unable to See_Comment [Automated (test code = Bili Calculate message] T he system Indirect) which generated this result transmitted reference range : <=1.0. The reference range was not used to interpret this result as normal/abnormal . [facility]blkjhqYMGVOWJET1393-32-70 12:50:00 Test Item Value Reference Range Interpretation Comments Ethanol Lvl (test code = Ethanol Lvl) no gt [facility]iscoTckefqsDCQDPGLQD7904-85-60 12:50:00 Test Item Value Reference Range Interpretation Comments Etoh (%) (test code = Etoh (%)) no gt [facility]iscoZeelgvbDIZYREWRH9063-16-93 12:50:00 Test Item Value Reference Range Interpretation Comments Lactic Acid Lvl (test code = Lactic 0.7 0.5-2.2 Acid Lvl) [place] 711343-02-21 12:50:00 Test Item Value Reference Range Interpretation Comments Total Protein (test code = Total 6.1 6.4-8.4 Protein) [place] 711343-02-21 12:50:00 Test Item Value Reference Range Interpretation Comments Albumin Lvl (test code = Albumin Lvl) 2.9 3.5-5.0 [place] [address]-02-21 12:50:00 Test Item Value Reference Range Interpretation Comments Globulin (test code = Globulin) 3.2 2.7-4.2 [place] [address]-02-21 12:50:00 Test Item Value Reference Range Interpretation Comments A/G Ratio (test code = A/G Ratio) 0.9 1 0.7-1.6 [place] [address]-02-21 12:50:00 Test Item Value Reference Range Interpretation Comments ALT (test code = ALT) 16 See_Comment [Auto mated message] The system which ge nerated this result transmit sheba reference range : <=65. The reference range was not used to interpr et this result as edy l/abnormal. [facility] CenterHzclbocEIIPPEWAF0477-56-99 12:50:00 Test Item Value Reference Range Interpretation Comments AST (test code = AST) 15 See_Comment [Auto mated message] The system which ge nerated this result transmit sheba reference range : <=37. The reference range was not used to interpr et this result as edy l/abnormal. [facility] VttkyoyIXQHPYNZV3063-40-26 12:50:00 Test Item Value Reference Range Interpretation Comments Alk Phos (test code = Alk Phos) 96 39-136 [facility] CenterYrzuddtDKXVIQBAW2832-73-19 12:50:00 Test Item Value Reference Range Interpretation Comments Bili Total (test code = Bili Total) 0.2 0.2-1.3 [facility] CenterJpjltjpQNEZDPDOL6219-53-67 12:50:00 Test Item Value Reference Range Interpretation Comments Bili Direct (test code no gt See_Comment [Aut omated message] The = Bili Direct) system which generated this result tra nsmitted reference range : <=0.3. The reference r christiano was not used to int erpret this result as edy l/abnormal. [facility] CenterKgooxvfHDQTQSNZE0269-17-92 12:50:00 Test Item Value Reference Range Interpretation Comments Bili Indirect Unable to See_Comment [Automated (test code = Bili Calculate message] T he system Indirect) which generated this result transmitted reference range : <=1.0. The reference range was not used to interpret this result as normal/abnormal . [facility] CenterBeynffoIDDRPBWZE6073-47-62 12:50:00 Test Item Value Reference Range Interpretation Comments HS Troponin I (test code = HS Troponin 15 I) [facility] CenterLttwyanOZUVKABIM4037-62-52 12:50:00 Test Item Value Reference Range Interpretation Comments pH Justin (test code = pH Justin) 7.35 1 7.28-7.42 [facility] CenterAzfnuxqOJQAPSXBX1956-82-03 12:50:00 Test Item Value Reference Range Interpretation Comments pCO2 Justin (test code = pCO2 Justin) 55 38-52 [place] 711343-02-21 12:50:00 Test Item Value Reference Range Interpretation Comments pO2 Justin (test code = pO2 Justin) 43 20-49 [place] 711343-02-21 12:50:00 Test Item Value Reference Range Interpretation Comments HCO3 Justin (test code = HCO3 Justin) 30 22-26 [place] 711343-02-21 12:50:00 Test Item Value Reference Range Interpretation Comments BE Jutsin (test code = BE Justin) 3 -2-2 [place] 711343-02-21 12:50:00 Test Item Value Reference Range Interpretation Comments O2 Sat Justin (calc) (test code = O2 Sat 75.9 40.0-70.0 Justin (calc)) [place] 711343-02-21 12:50:00 Test Item Value Reference Range Interpretation Comments Temp Justin (test code = Temp Justin) 37.0 [place] 633383-02-21 12:50:00 Test Item Value Reference Range Interpretation Comments ACT (TEG) Rapid (test code = ACT (TEG) 113 s 86-118 Rapid) [facility] HospitalAbslrutOSXZUHSMXL5267-23-09 12:50:00 Test Item Value Reference Range Interpretation Comments Split Point Rapid (test code = Split 0.6 min Point Rapid) [place] 633383-02-21 12:50:00 Test Item Value Reference Range Interpretation Comments R-time Rapid (test code = R-time 0.7 min 0.4-0.7 Rapid) [place] 633383-02-21 12:50:00 Test Item Value Reference Range Interpretation Comments K-time Rapid (test code = K-time 1.1 min 0.6-2.3 Rapid) [place] 633383-02-21 12:50:00 Test Item Value Reference Range Interpretation Comments Angle Rapid (test code = Angle 78 degrees 64-80 Rapid) [place] 633383-02-21 12:50:00 Test Item Value Reference Range Interpretation Comments Max Amplitude Rapid (test code = Max 65 mm 52-71 Amplitude Rapid) [place] 633383-02-21 12:50:00 Test Item Value Reference Range Interpretation Comments G-value Rapid (test code = G-value 9.2 5.0-11.6 Rapid) [place] [address]-02-21 12:50:00 Test Item Value Reference Range Interpretation Comments Estimated % Lysis Rapid 0.0 See_Comment [Au tomated message] The (test code = Estimated syste m which generated % Lysis Rapid) this result t ransmitted reference range : <=7.5. The reference r christiano was not used to int erpret this result as normal/abnormal . [place] 633383-02-21 12:50:00 Test Item Value Reference Range Interpretation Comments Plt Morph (test code = See Note 1(11/21/22 Plt Morph) 6:50 AM) [place] 633383-02-21 12:50:00 Test Item Value Reference Range Interpretation Comments Stomatocyte (test code = Stomatocyte) slight [facility] HospitalWidiabvRTPPEOYLII5321-75-05 12:50:00 Test Item Value Reference Range Interpretation Comments WBC X 10x3 (test code = WBC X 10x3) 8.7 3.7-10.4 [place] 633383-02-21 12:50:00 Test Item Value Reference Range Interpretation Comments RBC X 10x6 (test code = RBC X 10x6) 3.56 4.20-5.40 [place] 633383-02-21 12:50:00 Test Item Value Reference Range Interpretation Comments Hgb (test code = Hgb) 10.4 12.0-16.0 [place] 633383-02-21 12:50:00 Test Item Value Reference Range Interpretation Comments Hct (test code = Hct) 32.3 36.0-48.0 [place] 633383-02-21 12:50:00 Test Item Value Reference Range Interpretation Comments MCV (test code = MCV) 90.8 80.0-98.0 [place] [address]-02-21 12:50:00 Test Item Value Reference Range Interpretation Comments MCH (test code = MCH) 29.3 pg 27.0-31.0 [place] 633383-02-21 12:50:00 Test Item Value Reference Range Interpretation Comments MCHC (test code = MCHC) 32.2 32.0-36.0 [place] 633383-02-21 12:50:00 Test Item Value Reference Range Interpretation Comments RDW (test code = RDW) 13.7 11.5-14.5 [place] [address]-02-21 12:50:00 Test Item Value Reference Range Interpretation Comments Platelet (test code = Platelet) 137 133-450 [place] 633383-02-21 12:50:00 Test Item Value Reference Range Interpretation Comments MPV (test code = MPV) 7.9 7.4-10.4 [place] 633383-02-21 12:50:00 Test Item Value Reference Range Interpretation Comments ACT (TEG) Rapid (test code = ACT (TEG) 113 s 86-118 Rapid) [place] [address]-02-21 12:50:00 Test Item Value Reference Range Interpretation Comments Split Point Rapid (test code = Split 0.6 min Point Rapid) [place] 633383-02-21 12:50:00 Test Item Value Reference Range Interpretation Comments R-time Rapid (test code = R-time 0.7 min 0.4-0.7 Rapid) [place] 633383-02-21 12:50:00 Test Item Value Reference Range Interpretation Comments K-time Rapid (test code = K-time 1.1 min 0.6-2.3 Rapid) [place] [address]-02-21 12:50:00 Test Item Value Reference Range Interpretation Comments Angle Rapid (test code = Angle 78 degrees 64-80 Rapid) [place] 633383-02-21 12:50:00 Test Item Value Reference Range Interpretation Comments Max Amplitude Rapid (test code = Max 65 mm 52-71 Amplitude Rapid) [place] 633383-02-21 12:50:00 Test Item Value Reference Range Interpretation Comments G-value Rapid (test code = G-value 9.2 5.0-11.6 Rapid) [place] [address]-02-21 12:50:00 Test Item Value Reference Range Interpretation Comments Estimated % Lysis Rapid 0.0 See_Comment [Au tomated message] The (test code = Estimated syste m which generated % Lysis Rapid) this result t ransmitted reference range : <=7.5. The reference r christiano was not used to int erpret this result as normal/abnormal . [place] 633383-02-21 12:50:00 Test Item Value Reference Range Interpretation Comments Plt Morph (test code = See Note 1(11/21/22 Plt Morph) 6:50 AM) [place] 633383-02-21 12:50:00 Test Item Value Reference Range Interpretation Comments Segs (test code = Segs) 64.1 45.0-75.0 [place] 633383-02-21 12:50:00 Test Item Value Reference Range Interpretation Comments Lymphocytes (test code = Lymphocytes) 22.0 20.0-40.0 [place] 633383-02-21 12:50:00 Test Item Value Reference Range Interpretation Comments Monocytes (test code = Monocytes) 8.3 2.0-12.0 [place] 633383-02-21 12:50:00 Test Item Value Reference Range Interpretation Comments Eosinophils (test code = 4.7 See_Comment [A utomated message] The Eosinophils) system which ge nerated this result tra nsmitted reference range : <=4.0. The reference r christiano was not used to int erpret this result as normal/abnormal . [facility] HospitalTmlqgpnQBPIPFCCZC5877-08-68 12:50:00 Test Item Value Reference Range Interpretation Comments Basophils (test code = 0.9 See_Comment [Aut omated message] The Basophils) system which ge nerated this result tra nsmitted reference range : <=1.0. The reference r christiano was not used to int erpret this result as normal/abnormal . [facility] HospitalFunnltpOEKWPATHIA3765-12-25 12:50:00 Test Item Value Reference Range Interpretation Comments Neutrophils # (test code = Neutrophils 5.6 1.5-8.1 #) [place] 633383-02-21 12:50:00 Test Item Value Reference Range Interpretation Comments Lymphocytes # (test code = Lymphocytes 1.9 1.0-5.5 #) [place] 633383-02-21 12:50:00 Test Item Value Reference Range Interpretation Comments Monocytes # (test code 0.7 See_Comment [Aut omated message] The = Monocytes #) system which generated this result tra nsmitted reference range : <=0.8. The reference r christiano was not used to int erpret this result as normal/abnormal . [place] 633383-02-21 12:50:00 Test Item Value Reference Range Interpretation Comments Eosinophils # (test code 0.4 See_Comment [A utomated message] The = Eosinophils #) system whic h generated this result tra nsmitted reference range : <=0.5. The reference r christiano was not used to int erpret this result as normal/abnormal . [facility] BpkmsseXENPUUPKAE9169-61-16 12:50:00 Test Item Value Reference Range Interpretation Comments Basophils # (test code 0.1 See_Comment [Aut omated message] The = Basophils #) system which generated this result tra nsmitted reference range : <=0.2. The reference r christiano was not used to int erpret this result as normal/abnormal . [facility] NgueygcWAHRURRZPU7197-98-83 12:50:00 Test Item Value Reference Range Interpretation Comments Stomatocyte (test code = Stomatocyte) slight [facility] CujwcgpNJFQZUELSN9149-58-68 12:50:00 Test Item Value Reference Range Interpretation Comments Ethanol Lvl (test code = Ethanol Lvl) no gt [facility] OuiqgpmBDSYDZQFLM2617-12-98 12:50:00 Test Item Value Reference Range Interpretation Comments Etoh (%) (test code = Etoh (%)) no gt [facility] [employer] ZKDENRV4003-64-00 12:50:00 Test Item Value Reference Range Interpretation Comments ABO/Rh (test code = ABO/Rh) O POS [facility] [employer] [id number] 12:50:00 Test Item Value Reference Range Interpretation Comments Antibody Scrn (test Negative (11/21/22 6:50 code = Antibody Scrn) AM) [facility] [employer] CERTGBI3739-13-25 12:50:00 Test Item Value Reference Range Interpretation Comments ABO/Rh (test code = ABO/Rh) O POS [employer] TWBZNRA4298-27-09 12:50:00 Test Item Value Reference Range Interpretation Comments Antibody Scrn (test Negative (11/21/22 6:50 code = Antibody Scrn) AM) [facility] [employer] TechnologyCARDIAC FKYSTES1509-61-18 12:50:00 Test Item Value Reference Range Interpretation Comments HS Troponin I (test code = HS Troponin 15 I) [facility] [employer] [id number] 12:50:00 Test Item Value Reference Range Interpretation Comments Glucose Lvl (test code = Glucose Lvl) 99 70-99 [facility] [place] [id number] 12:50:00 Test Item Value Reference Range Interpretation Comments BUN (test code = BUN) 38 7-22 [place] 454363-02-21 12:50:00 Test Item Value Reference Range Interpretation Comments Creatinine Lvl (test code = Creatinine 2.38 0.50-1.40 Lvl) [place] 454363-02-21 12:50:00 Test Item Value Reference Range Interpretation Comments Sodium Lvl (test code = Sodium Lvl) 140 135-145 [place] 454363-02-21 12:50:00 Test Item Value Reference Range Interpretation Comments Potassium Lvl (test code = Potassium 3.9 3.5-5.1 Lvl) [place] 454363-02-21 12:50:00 Test Item Value Reference Range Interpretation Comments Chloride Lvl (test code = Chloride Lvl) 107 95-109 [place] 454363-02-21 12:50:00 Test Item Value Reference Range Interpretation Comments CO2 (test code = CO2) 27 24-32 [place] 454363-02-21 12:50:00 Test Item Value Reference Range Interpretation Comments Calcium Lvl (test code = Calcium Lvl) 8.1 8.5-10.5 [place] 454363-02-21 12:50:00 Test Item Value Reference Range Interpretation Comments AGAP (test code = AGAP) 9.9 10.0-20.0 [place] 454363-02-21 12:50:00 Test Item Value Reference Range Interpretation Comments eGFR (test code = eGFR) 20 [place] 454363-02-21 12:50:00 Test Item Value Reference Range Interpretation Comments Lactic Acid Lvl (test code = Lactic 0.7 0.5-2.2 Acid Lvl) [place] 454363-02-21 12:50:00 Test Item Value Reference Range Interpretation Comments Total Protein (test code = Total 6.1 6.4-8.4 Protein) [place] 454363-02-21 12:50:00 Test Item Value Reference Range Interpretation Comments Albumin Lvl (test code = Albumin Lvl) 2.9 3.5-5.0 [place] 454363-02-21 12:50:00 Test Item Value Reference Range Interpretation Comments Globulin (test code = Globulin) 3.2 2.7-4.2 [facility] CenterSilver Fox EventsTRACY V[place]LE [id number] 12:50:00 Test Item Value Reference Range Interpretation Comments A/G Ratio (test code = A/G Ratio) 0.9 1 0.7-1.6 [place] [address]-02-21 12:50:00 Test Item Value Reference Range Interpretation Comments ALT (test code = ALT) 16 See_Comment [Auto mated message] The system which ge nerated this result transmit sheba reference range : <=65. The reference range was not used to interpr et this result as edy l/abnormal. [facility] CenterR[facility] [id number] 12:50:00 Test Item Value Reference Range Interpretation Comments AST (test code = AST) 15 See_Comment [Auto mated message] The system which ge nerated this result transmit sheba reference range : <=37. The reference range was not used to interpr et this result as edy l/abnormal. [facility] CenterR[facility] BTYMN1773-02-11 12:50:00 Test Item Value Reference Range Interpretation Comments Alk Phos (test code = Alk Phos) 96 39-136 [facility] CenterR[facility] [id number] 12:50:00 Test Item Value Reference Range Interpretation Comments Bili Total (test code = Bili Total) 0.2 0.2-1.3 [place] [address]-02-21 12:50:00 Test Item Value Reference Range Interpretation Comments Bili Direct (test code no gt See_Comment [Aut omated message] The = Bili Direct) system which generated this result tra nsmitted reference range : <=0.3. The reference r christiano was not used to int erpret this result as edy l/abnormal. [facility] Center[facility] [id number] 12:50:00 Test Item Value Reference Range Interpretation Comments Bili Indirect Unable to See_Comment [Automated (test code = Bili Calculate message] T he system Indirect) which generated this result transmitted reference range : <=1.0. The reference range was not used to interpret this result as normal/abnormal . [facility] CenterVwukydeGKHXHNVLL0849-07-90 12:50:00 Test Item Value Reference Range Interpretation Comments Ethanol Lvl (test code = Ethanol Lvl) no gt [facility]AteltwwEKPWGSIYX5114-75-93 12:50:00 Test Item Value Reference Range Interpretation Comments Etoh (%) (test code = Etoh (%)) no gt [place] 711343-02-21 12:50:00 Test Item Value Reference Range Interpretation Comments Lactic Acid Lvl (test code = Lactic 0.7 0.5-2.2 Acid Lvl) [place] [address]-02-21 12:50:00 Test Item Value Reference Range Interpretation Comments Total Protein (test code = Total 6.1 6.4-8.4 Protein) [place] [address]-02-21 12:50:00 Test Item Value Reference Range Interpretation Comments Albumin Lvl (test code = Albumin Lvl) 2.9 3.5-5.0 [place] [address]-02-21 12:50:00 Test Item Value Reference Range Interpretation Comments Globulin (test code = Globulin) 3.2 2.7-4.2 [place] [address]-02-21 12:50:00 Test Item Value Reference Range Interpretation Comments A/G Ratio (test code = A/G Ratio) 0.9 1 0.7-1.6 [place] [address]-02-21 12:50:00 Test Item Value Reference Range Interpretation Comments ALT (test code = ALT) 16 See_Comment [Auto mated message] The system which ge nerated this result transmit sheba reference range : <=65. The reference range was not used to interpr et this result as edy l/abnormal. [place] 711343-02-21 12:50:00 Test Item Value Reference Range Interpretation Comments AST (test code = AST) 15 See_Comment [Auto mated message] The system which ge nerated this result transmit sheba reference range : <=37. The reference range was not used to interpr et this result as edy l/abnormal. [place] 711343-02-21 12:50:00 Test Item Value Reference Range Interpretation Comments Alk Phos (test code = Alk Phos) 96 39-136 [place] 711343-02-21 12:50:00 Test Item Value Reference Range Interpretation Comments Bili Total (test code = Bili Total) 0.2 0.2-1.3 [place] 711343-02-21 12:50:00 Test Item Value Reference Range Interpretation Comments Bili Direct (test code no gt See_Comment [Aut omated message] The = Bili Direct) system which generated this result tra nsmitted reference range : <=0.3. The reference r christiano was not used to int erpret this result as edy l/abnormal. [facility]iscoHqokryzROCJDJAXB0938-69-06 12:50:00 Test Item Value Reference Range Interpretation Comments Bili Indirect Unable to See_Comment [Automated (test code = Bili Calculate message] T he system Indirect) which generated this result transmitted reference range : <=1.0. The reference range was not used to interpret this result as normal/abnormal . [facility]iscoDughkjaNJGSZREZT5611-27-60 12:50:00 Test Item Value Reference Range Interpretation Comments HS Troponin I (test code = HS Troponin 15 I) [facility]iscoUpmtcdjZRQYVPJGG2281-21-08 12:50:00 Test Item Value Reference Range Interpretation Comments pH Justin (test code = pH Justin) 7.35 1 7.28-7.42 [facility]iscoPahbmcfBPYDGAZFN8945-17-92 12:50:00 Test Item Value Reference Range Interpretation Comments pCO2 Justin (test code = pCO2 Justin) 55 38-52 [facility]iscoTynheuuXDTISQHEZ5647-37-76 12:50:00 Test Item Value Reference Range Interpretation Comments pO2 Justin (test code = pO2 Justin) 43 20-49 [facility]iscoYvrmnkoSIYYJNYXD3020-27-81 12:50:00 Test Item Value Reference Range Interpretation Comments HCO3 Justin (test code = HCO3 Justin) 30 22-26 [place] 711343-02-21 12:50:00 Test Item Value Reference Range Interpretation Comments BE Justin (test code = BE Justin) 3 -2-2 [facility]iscoJmcnjbxPYNOUBNYD2735-69-69 12:50:00 Test Item Value Reference Range Interpretation Comments O2 Sat Justin (calc) (test code = O2 Sat 75.9 40.0-70.0 Justin (calc)) [facility]iscoOtzhrxfJJZLZFZQV5423-68-69 12:50:00 Test Item Value Reference Range Interpretation Comments Temp Justin (test code = Temp Justin) 37.0 [place] [id number] 12:50:00 Test Item Value Reference Range Interpretation Comments ACT (TEG) Rapid (test code = ACT (TEG) 113 s 86-118 Rapid) [facility]gUJGAQAYFHS0142-50-22 12:50:00 Test Item Value Reference Range Interpretation Comments Split Point Rapid (test code = Split 0.6 min Point Rapid) [place] [address]-02-21 12:50:00 Test Item Value Reference Range Interpretation Comments R-time Rapid (test code = R-time 0.7 min 0.4-0.7 Rapid) [place] [address]-02-21 12:50:00 Test Item Value Reference Range Interpretation Comments K-time Rapid (test code = K-time 1.1 min 0.6-2.3 Rapid) [place] [address]-02-21 12:50:00 Test Item Value Reference Range Interpretation Comments Angle Rapid (test code = Angle 78 degrees 64-80 Rapid) [place] [address]-02-21 12:50:00 Test Item Value Reference Range Interpretation Comments Max Amplitude Rapid (test code = Max 65 mm 52-71 Amplitude Rapid) [place] [address]-02-21 12:50:00 Test Item Value Reference Range Interpretation Comments G-value Rapid (test code = G-value 9.2 5.0-11.6 Rapid) [place] [address]-02-21 12:50:00 Test Item Value Reference Range Interpretation Comments Estimated % Lysis Rapid 0.0 See_Comment [Au tomated message] The (test code = Estimated syste m which generated % Lysis Rapid) this result t ransmitted reference range : <=7.5. The reference r christiano was not used to int erpret this result as normal/abnormal . [place] [address]383-02-21 12:50:00 Test Item Value Reference Range Interpretation Comments Plt Morph (test code = See Note 1(11/21/22 Plt Morph) 6:50 AM) [place] [address]-02-21 12:50:00 Test Item Value Reference Range Interpretation Comments Stomatocyte (test code = Stomatocyte) slight [place] [address]-02-21 12:50:00 Test Item Value Reference Range Interpretation Comments WBC X 10x3 (test code = WBC X 10x3) 8.7 3.7-10.4 [place] [address]-02-21 12:50:00 Test Item Value Reference Range Interpretation Comments RBC X 10x6 (test code = RBC X 10x6) 3.56 4.20-5.40 [place] [address]-02-21 12:50:00 Test Item Value Reference Range Interpretation Comments Hgb (test code = Hgb) 10.4 12.0-16.0 [place] [address]-02-21 12:50:00 Test Item Value Reference Range Interpretation Comments Hct (test code = Hct) 32.3 36.0-48.0 [place] [address]383-02-21 12:50:00 Test Item Value Reference Range Interpretation Comments MCV (test code = MCV) 90.8 80.0-98.0 [place] [address]-02-21 12:50:00 Test Item Value Reference Range Interpretation Comments MCH (test code = MCH) 29.3 pg 27.0-31.0 [place] [address]-02-21 12:50:00 Test Item Value Reference Range Interpretation Comments MCHC (test code = MCHC) 32.2 32.0-36.0 [place] [address]383-02-21 12:50:00 Test Item Value Reference Range Interpretation Comments RDW (test code = RDW) 13.7 11.5-14.5 [place] [address]-02-21 12:50:00 Test Item Value Reference Range Interpretation Comments Platelet (test code = Platelet) 137 133-450 [place] [address]383-02-21 12:50:00 Test Item Value Reference Range Interpretation Comments MPV (test code = MPV) 7.9 7.4-10.4 [place] [address]-02-21 12:50:00 Test Item Value Reference Range Interpretation Comments ACT (TEG) Rapid (test code = ACT (TEG) 113 s 86-118 Rapid) [place] [address]383-02-21 12:50:00 Test Item Value Reference Range Interpretation Comments Split Point Rapid (test code = Split 0.6 min Point Rapid) [place] [address]-02-21 12:50:00 Test Item Value Reference Range Interpretation Comments R-time Rapid (test code = R-time 0.7 min 0.4-0.7 Rapid) [place] [address]-02-21 12:50:00 Test Item Value Reference Range Interpretation Comments K-time Rapid (test code = K-time 1.1 min 0.6-2.3 Rapid) [place] [address]-02-21 12:50:00 Test Item Value Reference Range Interpretation Comments Angle Rapid (test code = Angle 78 degrees 64-80 Rapid) [place] [address]-02-21 12:50:00 Test Item Value Reference Range Interpretation Comments Max Amplitude Rapid (test code = Max 65 mm 52-71 Amplitude Rapid) [place] [address]-02-21 12:50:00 Test Item Value Reference Range Interpretation Comments G-value Rapid (test code = G-value 9.2 5.0-11.6 Rapid) [place] [address]-02-21 12:50:00 Test Item Value Reference Range Interpretation Comments Estimated % Lysis Rapid 0.0 See_Comment [Au tomated message] The (test code = Estimated syste m which generated % Lysis Rapid) this result t ransmitted reference range : <=7.5. The reference r christiano was not used to int erpret this result as normal/abnormal . [place] [address]383-02-21 12:50:00 Test Item Value Reference Range Interpretation Comments Plt Morph (test code = See Note 1(11/21/22 Plt Morph) 6:50 AM) [place] [address]-02-21 12:50:00 Test Item Value Reference Range Interpretation Comments Segs (test code = Segs) 64.1 45.0-75.0 [place] [address]-02-21 12:50:00 Test Item Value Reference Range Interpretation Comments Lymphocytes (test code = Lymphocytes) 22.0 20.0-40.0 [place] [address]-02-21 12:50:00 Test Item Value Reference Range Interpretation Comments Monocytes (test code = Monocytes) 8.3 2.0-12.0 [place] [address]-02-21 12:50:00 Test Item Value Reference Range Interpretation Comments Eosinophils (test code = 4.7 See_Comment [A utomated message] The Eosinophils) system which ge nerated this result tra nsmitted reference range : <=4.0. The reference r christiano was not used to int erpret this result as normal/abnormal . [place] [address]383-02-21 12:50:00 Test Item Value Reference Range Interpretation Comments Basophils (test code = 0.9 See_Comment [Aut omated message] The Basophils) system which ge nerated this result tra nsmitted reference range : <=1.0. The reference r christiano was not used to int erpret this result as normal/abnormal . [facility] HospitalCxttyosWZFDUGYPAT6888-63-72 12:50:00 Test Item Value Reference Range Interpretation Comments Neutrophils # (test code = Neutrophils 5.6 1.5-8.1 #) [facility] HospitalFbmjjctKTMTYBVNXM3474-70-24 12:50:00 Test Item Value Reference Range Interpretation Comments Lymphocytes # (test code = Lymphocytes 1.9 1.0-5.5 #) [facility] HospitalVgpwuafAYOTEYDJBN7647-51-76 12:50:00 Test Item Value Reference Range Interpretation Comments Monocytes # (test code 0.7 See_Comment [Aut omated message] The = Monocytes #) system which generated this result tra nsmitted reference range : <=0.8. The reference r christiano was not used to int erpret this result as normal/abnormal . [facility] HospitalKvapvbnKEMXTABXGV3518-67-67 12:50:00 Test Item Value Reference Range Interpretation Comments Eosinophils # (test code 0.4 See_Comment [A utomated message] The = Eosinophils #) system whic h generated this result tra nsmitted reference range : <=0.5. The reference r christiano was not used to int erpret this result as normal/abnormal . [facility] HospitalDfrfxslCXWUCPAMXW1527-73-32 12:50:00 Test Item Value Reference Range Interpretation Comments Basophils # (test code 0.1 See_Comment [Aut omated message] The = Basophils #) system which generated this result tra nsmitted reference range : <=0.2. The reference r christiano was not used to int erpret this result as normal/abnormal . [facility] HospitalRvfnhtlHZZWLAAULN8951-43-99 12:50:00 Test Item Value Reference Range Interpretation Comments Stomatocyte (test code = Stomatocyte) slight [facility]NAVUNE[facility]GG4820-29-76 12:50:00 Test Item Value Reference Range Interpretation Comments Ethanol Lvl (test code = Ethanol Lvl) no gt [facility] HospitalQohwsroDMEVJWQSWM4368-06-43 12:50:00 Test Item Value Reference Range Interpretation Comments Etoh (%) (test code = Etoh (%)) no gt [facility] BPXXPUF3868-09-20 12:50:00 Test Item Value Reference Range Interpretation Comments ABO/Rh (test code = ABO/Rh) O POS [facility] [employer] [id number] 12:50:00 Test Item Value Reference Range Interpretation Comments Antibody Scrn (test Negative (11/21/22 6:50 code = Antibody Scrn) AM) [facility] [employer] [id number] 12:50:00 Test Item Value Reference Range Interpretation Comments ABO/Rh (test code = ABO/Rh) O POS [facility] [employer] [id number] 12:50:00 Test Item Value Reference Range Interpretation Comments Antibody Scrn (test Negative (11/21/22 6:50 code = Antibody Scrn) AM) [facility] [employer] [id number] 12:50:00 Test Item Value Reference Range Interpretation Comments HS Troponin I (test code = HS Troponin 15 I) [facility] [employer] [id number] 12:50:00 Test Item Value Reference Range Interpretation Comments Glucose Lvl (test code = Glucose Lvl) 99 70-99 [facility] [employer] [id number] 12:50:00 Test Item Value Reference Range Interpretation Comments BUN (test code = BUN) 38 7-22 [facility]2023-02-21 12:50:00 Test Item Value Reference Range Interpretation Comments Creatinine Lvl (test code = Creatinine 2.38 0.50-1.40 Lvl) [facility]2023-02-21 12:50:00 Test Item Value Reference Range Interpretation Comments Sodium Lvl (test code = Sodium Lvl) 140 135-145 [facility] [employer] [id number] 12:50:00 Test Item Value Reference Range Interpretation Comments Potassium Lvl (test code = Potassium 3.9 3.5-5.1 Lvl) [facility]2023-02-21 12:50:00 Test Item Value Reference Range Interpretation Comments Chloride Lvl (test code = Chloride Lvl) 107 95-109 [facility]2023-02-21 12:50:00 Test Item Value Reference Range Interpretation Comments CO2 (test code = CO2) 27 24-32 [facility]2023-02-21 12:50:00 Test Item Value Reference Range Interpretation Comments Calcium Lvl (test code = Calcium Lvl) 8.1 8.5-10.5 [place] [address]363-02-21 12:50:00 Test Item Value Reference Range Interpretation Comments AGAP (test code = AGAP) 9.9 10.0-20.0 [place] 454363-02-21 12:50:00 Test Item Value Reference Range Interpretation Comments eGFR (test code = eGFR) 20 [place] 454363-02-21 12:50:00 Test Item Value Reference Range Interpretation Comments Lactic Acid Lvl (test code = Lactic 0.7 0.5-2.2 Acid Lvl) [place] [address]-02-21 12:50:00 Test Item Value Reference Range Interpretation Comments Total Protein (test code = Total 6.1 6.4-8.4 Protein) [place] [address]363-02-21 12:50:00 Test Item Value Reference Range Interpretation Comments Albumin Lvl (test code = Albumin Lvl) 2.9 3.5-5.0 [place] [address]-02-21 12:50:00 Test Item Value Reference Range Interpretation Comments Globulin (test code = Globulin) 3.2 2.7-4.2 [place] [address]363-02-21 12:50:00 Test Item Value Reference Range Interpretation Comments A/G Ratio (test code = A/G Ratio) 0.9 1 0.7-1.6 [place] [address]363-02-21 12:50:00 Test Item Value Reference Range Interpretation Comments ALT (test code = ALT) 16 See_Comment [Auto mated message] The system which ge nerated this result transmit sheba reference range : <=65. The reference range was not used to interpr et this result as edy l/abnormal. [place] [address]363-02-21 12:50:00 Test Item Value Reference Range Interpretation Comments AST (test code = AST) 15 See_Comment [Auto mated message] The system which [employer] nerated this result transmit sheba reference range : <=37. The reference range was not used to interpr et this result as edy l/abnormal. [place]363-02-21 12:50:00 Test Item Value Reference Range Interpretation Comments Alk Phos (test code = Alk Phos) 96 39-136 [place] [address]-02-21 12:50:00 Test Item Value Reference Range Interpretation Comments Bili Total (test code = Bili Total) 0.2 0.2-1.3 [place] [address]-02-21 12:50:00 Test Item Value Reference Range Interpretation Comments Bili Direct (test code no gt See_Comment [Aut omated message] The = Bili Direct) system which generated this result tra nsmitted reference range : <=0.3. The reference r christiano was not used to int erpret this result as edy l/abnormal. [place] [address]363-02-21 12:50:00 Test Item Value Reference Range Interpretation Comments Bili Indirect Unable to See_Comment [Automated (test code = Bili Calculate message] T he system Indirect) which generated this result transmitted reference range : <=1.0. The reference range was not used to interpret this result as normal/abnormal . [place] 711343-02-21 12:50:00 Test Item Value Reference Range Interpretation Comments Ethanol Lvl (test code = Ethanol Lvl) no gt [place] 711343-02-21 12:50:00 Test Item Value Reference Range Interpretation Comments Etoh (%) (test code = Etoh (%)) no gt [place] 711343-02-21 12:50:00 Test Item Value Reference Range Interpretation Comments Lactic Acid Lvl (test code = Lactic 0.7 0.5-2.2 Acid Lvl) [place] [address]-02-21 12:50:00 Test Item Value Reference Range Interpretation Comments Total Protein (test code = Total 6.1 6.4-8.4 Protein) [place] [address]-02-21 12:50:00 Test Item Value Reference Range Interpretation Comments Albumin Lvl (test code = Albumin Lvl) 2.9 3.5-5.0 [place] [address]-02-21 12:50:00 Test Item Value Reference Range Interpretation Comments Globulin (test code = Globulin) 3.2 2.7-4.2 [place] [address]-02-21 12:50:00 Test Item Value Reference Range Interpretation Comments A/G Ratio (test code = A/G Ratio) 0.9 1 0.7-1.6 [place] [address]-02-21 12:50:00 Test Item Value Reference Range Interpretation Comments ALT (test code = ALT) 16 See_Comment [Auto mated message] The system which ge nerated this result transmit sheba reference range : <=65. The reference range was not used to interpr et this result as edy l/abnormal. [facility] SjhxzeuEYTMCHAYJ7412-06-20 12:50:00 Test Item Value Reference Range Interpretation Comments AST (test code = AST) 15 See_Comment [Auto mated message] The system which ge nerated this result transmit sheba reference range : <=37. The reference range was not used to interpr et this result as edy l/abnormal. [facility] EsvhkbqKGVIBKXLJ7699-22-87 12:50:00 Test Item Value Reference Range Interpretation Comments Alk Phos (test code = Alk Phos) 96 39-136 [facility] GyyysgmRNMLDCZNB1199-97-48 12:50:00 Test Item Value Reference Range Interpretation Comments Bili Total (test code = Bili Total) 0.2 0.2-1.3 [facility] EwfeklnQSCHHXJFX3045-58-97 12:50:00 Test Item Value Reference Range Interpretation Comments Bili Direct (test code no gt See_Comment [Aut omated message] The = Bili Direct) system which generated this result tra nsmitted reference range : <=0.3. The reference r christiano was not used to int erpret this result as edy l/abnormal. [facility] CtyewivZELMWLMYJ2517-36-41 12:50:00 Test Item Value Reference Range Interpretation Comments Bili Indirect Unable to See_Comment [Automated (test code = Bili Calculate message] T he system Indirect) which generated this result transmitted reference range : <=1.0. The reference range was not used to interpret this result as normal/abnormal . [facility] OncrhqsOEULOKFQB6377-28-42 12:50:00 Test Item Value Reference Range Interpretation Comments HS Troponin I (test code = HS Troponin 15 I) [facility] AdnyznpCGYCVEVYU6783-48-29 12:50:00 Test Item Value Reference Range Interpretation Comments pH Justin (test code = pH Justin) 7.35 1 7.28-7.42 [facility] VjypwhgSZPZZUZEJ6012-42-97 12:50:00 Test Item Value Reference Range Interpretation Comments pCO2 Justin (test code = pCO2 Justin) 55 38-52 [place] 711343-02-21 12:50:00 Test Item Value Reference Range Interpretation Comments pO2 Justin (test code = pO2 Justin) 43 20-49 [place] [address]-02-21 12:50:00 Test Item Value Reference Range Interpretation Comments HCO3 Justin (test code = HCO3 Justin) 30 22-26 [place] [address]-02-21 12:50:00 Test Item Value Reference Range Interpretation Comments BE Justin (test code = BE Justin) 3 -2-2 [place] 711343-02-21 12:50:00 Test Item Value Reference Range Interpretation Comments O2 Sat Justin (calc) (test code = O2 Sat 75.9 40.0-70.0 Justin (calc)) [place] 711343-02-21 12:50:00 Test Item Value Reference Range Interpretation Comments Temp Justin (test code = Temp Justin) 37.0 [place] [address]383-02-21 12:50:00 Test Item Value Reference Range Interpretation Comments ACT (TEG) Rapid (test code = ACT (TEG) 113 s 86-118 Rapid) [place] [address]383-02-21 12:50:00 Test Item Value Reference Range Interpretation Comments Split Point Rapid (test code = Split 0.6 min Point Rapid) [place] [address]383-02-21 12:50:00 Test Item Value Reference Range Interpretation Comments R-time Rapid (test code = R-time 0.7 min 0.4-0.7 Rapid) [place] [address]383-02-21 12:50:00 Test Item Value Reference Range Interpretation Comments K-time Rapid (test code = K-time 1.1 min 0.6-2.3 Rapid) [place] [address]383-02-21 12:50:00 Test Item Value Reference Range Interpretation Comments Angle Rapid (test code = Angle 78 degrees 64-80 Rapid) [place] [address]383-02-21 12:50:00 Test Item Value Reference Range Interpretation Comments Max Amplitude Rapid (test code = Max 65 mm 52-71 Amplitude Rapid) [place] [address]383-02-21 12:50:00 Test Item Value Reference Range Interpretation Comments G-value Rapid (test code = G-value 9.2 5.0-11.6 Rapid) [place] [address]383-02-21 12:50:00 Test Item Value Reference Range Interpretation Comments Estimated % Lysis Rapid 0.0 See_Comment [Au tomated message] The (test code = Estimated syste m which generated % Lysis Rapid) this result t ransmitted reference range : <=7.5. The reference r christiano was not used to int erpret this result as normal/abnormal . [facility] HospitalBycpwgpUTOHIUMHHH6084-40-07 12:50:00 Test Item Value Reference Range Interpretation Comments Plt Morph (test code = See Note 1(11/21/22 Plt Morph) 6:50 AM) [place] [address]383-02-21 12:50:00 Test Item Value Reference Range Interpretation Comments Stomatocyte (test code = Stomatocyte) slight [facility] HospitalUgnlrtjEFMETIYRHN4903-81-85 12:50:00 Test Item Value Reference Range Interpretation Comments WBC X 10x3 (test code = WBC X 10x3) 8.7 3.7-10.4 [place] [address]383-02-21 12:50:00 Test Item Value Reference Range Interpretation Comments RBC X 10x6 (test code = RBC X 10x6) 3.56 4.20-5.40 [facility] HospitalSwqejmsSXCYLNNAKW5294-59-90 12:50:00 Test Item Value Reference Range Interpretation Comments Hgb (test code = Hgb) 10.4 12.0-16.0 [facility] HospitalDjkxvmnOWHTGLUYME4262-00-60 12:50:00 Test Item Value Reference Range Interpretation Comments Hct (test code = Hct) 32.3 36.0-48.0 [facility] HospitalKhludpwVFJRRDDAEE1717-26-32 12:50:00 Test Item Value Reference Range Interpretation Comments MCV (test code = MCV) 90.8 80.0-98.0 [place] [address]-02-21 12:50:00 Test Item Value Reference Range Interpretation Comments MCH (test code = MCH) 29.3 pg 27.0-31.0 [place] [address]383-02-21 12:50:00 Test Item Value Reference Range Interpretation Comments MCHC (test code = MCHC) 32.2 32.0-36.0 [facility] HospitalVqenqnwPGXEJCGYZY1916-17-00 12:50:00 Test Item Value Reference Range Interpretation Comments RDW (test code = RDW) 13.7 11.5-14.5 [place] [address]-02-21 12:50:00 Test Item Value Reference Range Interpretation Comments Platelet (test code = Platelet) 137 133-450 [place] [address]-02-21 12:50:00 Test Item Value Reference Range Interpretation Comments MPV (test code = MPV) 7.9 7.4-10.4 [place] [address]-02-21 12:50:00 Test Item Value Reference Range Interpretation Comments ACT (TEG) Rapid (test code = ACT (TEG) 113 s 86-118 Rapid) [place] [address]-02-21 12:50:00 Test Item Value Reference Range Interpretation Comments Split Point Rapid (test code = Split 0.6 min Point Rapid) [place] [address]-02-21 12:50:00 Test Item Value Reference Range Interpretation Comments R-time Rapid (test code = R-time 0.7 min 0.4-0.7 Rapid) [place] [address]-02-21 12:50:00 Test Item Value Reference Range Interpretation Comments K-time Rapid (test code = K-time 1.1 min 0.6-2.3 Rapid) [place] [address]-02-21 12:50:00 Test Item Value Reference Range Interpretation Comments Angle Rapid (test code = Angle 78 degrees 64-80 Rapid) [place] [address]-02-21 12:50:00 Test Item Value Reference Range Interpretation Comments Max Amplitude Rapid (test code = Max 65 mm 52-71 Amplitude Rapid) [place] [address]-02-21 12:50:00 Test Item Value Reference Range Interpretation Comments G-value Rapid (test code = G-value 9.2 5.0-11.6 Rapid) [place] [address]-02-21 12:50:00 Test Item Value Reference Range Interpretation Comments Estimated % Lysis Rapid 0.0 See_Comment [Au tomated message] The (test code = Estimated syste m which generated % Lysis Rapid) this result t ransmitted reference range : <=7.5. The reference r christiano was not used to int erpret this result as normal/abnormal . [place] [address]383-02-21 12:50:00 Test Item Value Reference Range Interpretation Comments Plt Morph (test code = See Note 1(11/21/22 Plt Morph) 6:50 AM) [place] [address]383-02-21 12:50:00 Test Item Value Reference Range Interpretation Comments Segs (test code = Segs) 64.1 45.0-75.0 [place] [address]383-02-21 12:50:00 Test Item Value Reference Range Interpretation Comments Lymphocytes (test code = Lymphocytes) 22.0 20.0-40.0 [place] [address]383-02-21 12:50:00 Test Item Value Reference Range Interpretation Comments Monocytes (test code = Monocytes) 8.3 2.0-12.0 [place] [address]383-02-21 12:50:00 Test Item Value Reference Range Interpretation Comments Eosinophils (test code = 4.7 See_Comment [A utomated message] The Eosinophils) system which ge nerated this result tra nsmitted reference range : <=4.0. The reference r christiano was not used to int erpret this result as normal/abnormal . [place] [address]383-02-21 12:50:00 Test Item Value Reference Range Interpretation Comments Basophils (test code = 0.9 See_Comment [Aut omated message] The Basophils) system which ge nerated this result tra nsmitted reference range : <=1.0. The reference r christiano was not used to int erpret this result as normal/abnormal . [place] [address]383-02-21 12:50:00 Test Item Value Reference Range Interpretation Comments Neutrophils # (test code = Neutrophils 5.6 1.5-8.1 #) [place] [address]383-02-21 12:50:00 Test Item Value Reference Range Interpretation Comments Lymphocytes # (test code = Lymphocytes 1.9 1.0-5.5 #) [place] [address]383-02-21 12:50:00 Test Item Value Reference Range Interpretation Comments Monocytes # (test code 0.7 See_Comment [Aut omated message] The = Monocytes #) system which generated this result tra nsmitted reference range : <=0.8. The reference r christiano was not used to int erpret this result as normal/abnormal . [place] [address]383-02-21 12:50:00 Test Item Value Reference Range Interpretation Comments Eosinophils # (test code 0.4 See_Comment [A utomated message] The = Eosinophils #) system whic h generated this result tra nsmitted reference range : <=0.5. The reference r christiano was not used to int erpret this result as normal/abnormal . [facility] JdqolikHHMSFHZODD1016-99-61 12:50:00 Test Item Value Reference Range Interpretation Comments Basophils # (test code 0.1 See_Comment [Aut omated message] The = Basophils #) system which generated this result tra nsmitted reference range : <=0.2. The reference r christiano was not used to int erpret this result as normal/abnormal . [facility] BmgixrvOUSZZVRCJH6767-86-19 12:50:00 Test Item Value Reference Range Interpretation Comments Stomatocyte (test code = Stomatocyte) slight [facility] RukfxgrQOFMYPFWIR9076-30-32 12:50:00 Test Item Value Reference Range Interpretation Comments Ethanol Lvl (test code = Ethanol Lvl) no gt [facility] LrwudoeOKITBLRMAF1893-88-76 12:50:00 Test Item Value Reference Range Interpretation Comments Etoh (%) (test code = Etoh (%)) no gt [facility] [employer] IVMWPGP8791-26-90 12:50:00 Test Item Value Reference Range Interpretation Comments ABO/Rh (test code = ABO/Rh) O POS [facility] [employer] BTGDALP6891-76-45 12:50:00 Test Item Value Reference Range Interpretation Comments Antibody Scrn (test Negative (11/21/22 6:50 code = Antibody Scrn) AM) [facility] [employer] [id number] 12:50:00 Test Item Value Reference Range Interpretation Comments ABO/Rh (test code = ABO/Rh) O POS [facility] [employer] [id number] 12:50:00 Test Item Value Reference Range Interpretation Comments Antibody Scrn (test Negative (11/21/22 6:50 code = Antibody Scrn) AM) [facility] [employer] TechnologyCARDIAC [id number] 12:50:00 Test Item Value Reference Range Interpretation Comments HS Troponin I (test code = HS Troponin 15 I) [facility] [employer] [id number] 12:50:00 Test Item Value Reference Range Interpretation Comments Glucose Lvl (test code = Glucose Lvl) 99 70-99 [facility] [employer] [id number] 12:50:00 Test Item Value Reference Range Interpretation Comments BUN (test code = BUN) 38 7-22 [place] 454363-02-21 12:50:00 Test Item Value Reference Range Interpretation Comments Creatinine Lvl (test code = Creatinine 2.38 0.50-1.40 Lvl) [place] 454363-02-21 12:50:00 Test Item Value Reference Range Interpretation Comments Sodium Lvl (test code = Sodium Lvl) 140 135-145 [place] 454363-02-21 12:50:00 Test Item Value Reference Range Interpretation Comments Potassium Lvl (test code = Potassium 3.9 3.5-5.1 Lvl) [place] 454363-02-21 12:50:00 Test Item Value Reference Range Interpretation Comments Chloride Lvl (test code = Chloride Lvl) 107 95-109 [place] 454363-02-21 12:50:00 Test Item Value Reference Range Interpretation Comments CO2 (test code = CO2) 27 24-32 [place] 454363-02-21 12:50:00 Test Item Value Reference Range Interpretation Comments Calcium Lvl (test code = Calcium Lvl) 8.1 8.5-10.5 [place] 454363-02-21 12:50:00 Test Item Value Reference Range Interpretation Comments AGAP (test code = AGAP) 9.9 10.0-20.0 [place] 454363-02-21 12:50:00 Test Item Value Reference Range Interpretation Comments eGFR (test code = eGFR) 20 [place] 454363-02-21 12:50:00 Test Item Value Reference Range Interpretation Comments Lactic Acid Lvl (test code = Lactic 0.7 0.5-2.2 Acid Lvl) [place] 454363-02-21 12:50:00 Test Item Value Reference Range Interpretation Comments Total Protein (test code = Total 6.1 6.4-8.4 Protein) [place] 454363-02-21 12:50:00 Test Item Value Reference Range Interpretation Comments Albumin Lvl (test code = Albumin Lvl) 2.9 3.5-5.0 [place] 454363-02-21 12:50:00 Test Item Value Reference Range Interpretation Comments Globulin (test code = Globulin) 3.2 2.7-4.2 [place] [address]-02-21 12:50:00 Test Item Value Reference Range Interpretation Comments A/G Ratio (test code = A/G Ratio) 0.9 1 0.7-1.6 [place] [address]-02-21 12:50:00 Test Item Value Reference Range Interpretation Comments ALT (test code = ALT) 16 See_Comment [Auto mated message] The system which ge nerated this result transmit sheba reference range : <=65. The reference range was not used to interpr et this result as edy l/abnormal. [place] [address]-02-21 12:50:00 Test Item Value Reference Range Interpretation Comments AST (test code = AST) 15 See_Comment [Auto mated message] The system which ge nerated this result transmit sheba reference range : <=37. The reference range was not used to interpr et this result as edy l/abnormal. [place] [address]-02-21 12:50:00 Test Item Value Reference Range Interpretation Comments Alk Phos (test code = Alk Phos) 96 39-136 [place] [address]-02-21 12:50:00 Test Item Value Reference Range Interpretation Comments Bili Total (test code = Bili Total) 0.2 0.2-1.3 [place] [address]-02-21 12:50:00 Test Item Value Reference Range Interpretation Comments Bili Direct (test code no gt See_Comment [Aut omated message] The = Bili Direct) system which generated this result tra nsmitted reference range : <=0.3. The reference r christiano was not used to int erpret this result as edy l/abnormal. [facility] [employer] [id number] 12:50:00 Test Item Value Reference Range Interpretation Comments Bili Indirect Unable to See_Comment [Automated (test code = Bili Calculate message] T he system Indirect) which generated this result transmitted reference range : <=1.0. The reference range was not used to interpret this result as normal/abnormal . [place] [address]-02-21 12:50:00 Test Item Value Reference Range Interpretation Comments Ethanol Lvl (test code = Ethanol Lvl) no gt [place] 711343-02-21 12:50:00 Test Item Value Reference Range Interpretation Comments Etoh (%) (test code = Etoh (%)) [facility] gt [facility]71[facility]87 12:50:00 Test Item Value Reference Range Interpretation Comments Lactic Acid Lvl (test code = Lactic 0.7 0.5-2.2 Acid Lvl) [facility]CdmvguiOEFPCAGLH8115-11-52 12:50:00 Test Item Value Reference Range Interpretation Comments Total Protein (test code = Total 6.1 6.4-8.4 Protein) [facility]KsdigqpWZXZHXDZT6406-70-70 12:50:00 Test Item Value Reference Range Interpretation Comments Albumin Lvl (test code = Albumin Lvl) 2.9 3.5-5.0 [place] 711343-02-21 12:50:00 Test Item Value Reference Range Interpretation Comments Globulin (test code = Globulin) 3.2 2.7-4.2 [facility]XbgwubsAOCHYUWGE8626-22-92 12:50:00 Test Item Value Reference Range Interpretation Comments A/G Ratio (test code = A/G Ratio) 0.9 1 0.7-1.6 [place] 711343-02-21 12:50:00 Test Item Value Reference Range Interpretation Comments ALT (test code = ALT) 16 See_Comment [Auto mated message] The system which ge nerated this result transmit sheba reference range : <=65. The reference range was not used to interpr et this result as edy l/abnormal. [facility]iscoRymidkoJRIXKMHEQ5094-64-22 12:50:00 Test Item Value Reference Range Interpretation Comments AST (test code = AST) 15 See_Comment [Auto mated message] The system which ge nerated this result transmit sheba reference range : <=37. The reference range was not used to interpr et this result as edy l/abnormal. [facility]iscoMhvihteSZKNNSFXW2118-74-08 12:50:00 Test Item Value Reference Range Interpretation Comments Alk Phos (test code = Alk Phos) 96 39-136 [facility]iscoLqwhvasDSLXBXGXE3363-01-36 12:50:00 Test Item Value Reference Range Interpretation Comments Bili Total (test code = Bili Total) 0.2 0.2-1.3 [place] 711343-02-21 12:50:00 Test Item Value Reference Range Interpretation Comments Bili Direct (test code no gt See_Comment [Aut omated message] The = Bili Direct) system which generated this result tra nsmitted reference range : <=0.3. The reference r christiano was not used to int erpret this result as edy l/abnormal. [facility]iscoTiubrmkUDQZFMDQH1410-70-96 12:50:00 Test Item Value Reference Range Interpretation Comments Bili Indirect Unable to See_Comment [Automated (test code = Bili Calculate message] T he system Indirect) which generated this result transmitted reference range : <=1.0. The reference range was not used to interpret this result as normal/abnormal . [facility]iscoMcbmpsvGXBCGKMUI3660-47-04 12:50:00 Test Item Value Reference Range Interpretation Comments HS Troponin I (test code = HS Troponin 15 I) [facility]iscoXmnsawsPWXUZXNUI0315-16-75 12:50:00 Test Item Value Reference Range Interpretation Comments pH Justin (test code = pH Justin) 7.35 1 7.28-7.42 [facility]iscoLoyrkbdUYVEWZKLB1551-95-31 12:50:00 Test Item Value Reference Range Interpretation Comments pCO2 Justin (test code = pCO2 Justin) 55 38-52 [facility]iscoJfrpyeqVDHZUWZZH0421-42-09 12:50:00 Test Item Value Reference Range Interpretation Comments pO2 Justin (test code = pO2 Justin) 43 20-49 [facility]iscoNgpkzjyHTLUUTOYU8626-02-02 12:50:00 Test Item Value Reference Range Interpretation Comments HCO3 Justin (test code = HCO3 Justin) 30 22-26 [place] 711343-02-21 12:50:00 Test Item Value Reference Range Interpretation Comments BE Justin (test code = BE Justin) 3 -2-2 [facility]iscoMekfxyhTHSXFFRTD0791-30-04 12:50:00 Test Item Value Reference Range Interpretation Comments O2 Sat Justin (calc) (test code = O2 Sat 75.9 40.0-70.0 Justin (calc)) [facility]iscoWkfrtuzVCKIKMXOQ7004-87-51 12:50:00 Test Item Value Reference Range Interpretation Comments Temp Justin (test code = Temp Justin) 37.0 [place] 633383-02-21 12:50:00 Test Item Value Reference Range Interpretation Comments ACT (TEG) Rapid (test code = ACT (TEG) 113 s 86-118 Rapid) [facility]nlxeqiRCQQJCYUZQ9005-71-87 12:50:00 Test Item Value Reference Range Interpretation Comments Split Point Rapid (test code = Split 0.6 min Point Rapid) [place] [address]-02-21 12:50:00 Test Item Value Reference Range Interpretation Comments R-time Rapid (test code = R-time 0.7 min 0.4-0.7 Rapid) [place] [address]-02-21 12:50:00 Test Item Value Reference Range Interpretation Comments K-time Rapid (test code = K-time 1.1 min 0.6-2.3 Rapid) [place] [address]-02-21 12:50:00 Test Item Value Reference Range Interpretation Comments Angle Rapid (test code = Angle 78 degrees 64-80 Rapid) [place] [address]-02-21 12:50:00 Test Item Value Reference Range Interpretation Comments Max Amplitude Rapid (test code = Max 65 mm 52-71 Amplitude Rapid) [place] [address]-02-21 12:50:00 Test Item Value Reference Range Interpretation Comments G-value Rapid (test code = G-value 9.2 5.0-11.6 Rapid) [place] [address]-02-21 12:50:00 Test Item Value Reference Range Interpretation Comments Estimated % Lysis Rapid 0.0 See_Comment [Au tomated message] The (test code = Estimated syste m which generated % Lysis Rapid) this result t ransmitted reference range : <=7.5. The reference r christiano was not used to int erpret this result as normal/abnormal . [place] 633383-02-21 12:50:00 Test Item Value Reference Range Interpretation Comments Plt Morph (test code = See Note 1(11/21/22 Plt Morph) 6:50 AM) [place] [address]-02-21 12:50:00 Test Item Value Reference Range Interpretation Comments Stomatocyte (test code = Stomatocyte) slight [place] [address]-02-21 12:50:00 Test Item Value Reference Range Interpretation Comments WBC X 10x3 (test code = WBC X 10x3) 8.7 3.7-10.4 [place] [address]-02-21 12:50:00 Test Item Value Reference Range Interpretation Comments RBC X 10x6 (test code = RBC X 10x6) 3.56 4.20-5.40 [place] [address]-02-21 12:50:00 Test Item Value Reference Range Interpretation Comments Hgb (test code = Hgb) 10.4 12.0-16.0 [place] [address]-02-21 12:50:00 Test Item Value Reference Range Interpretation Comments Hct (test code = Hct) 32.3 36.0-48.0 [place] 633383-02-21 12:50:00 Test Item Value Reference Range Interpretation Comments MCV (test code = MCV) 90.8 80.0-98.0 [place] [address]-02-21 12:50:00 Test Item Value Reference Range Interpretation Comments MCH (test code = MCH) 29.3 pg 27.0-31.0 [place] 633383-02-21 12:50:00 Test Item Value Reference Range Interpretation Comments MCHC (test code = MCHC) 32.2 32.0-36.0 [place] 633383-02-21 12:50:00 Test Item Value Reference Range Interpretation Comments RDW (test code = RDW) 13.7 11.5-14.5 [place] [address]-02-21 12:50:00 Test Item Value Reference Range Interpretation Comments Platelet (test code = Platelet) 137 133-450 [place] 633383-02-21 12:50:00 Test Item Value Reference Range Interpretation Comments MPV (test code = MPV) 7.9 7.4-10.4 [place] [address]-02-21 12:50:00 Test Item Value Reference Range Interpretation Comments ACT (TEG) Rapid (test code = ACT (TEG) 113 s 86-118 Rapid) [place] 633383-02-21 12:50:00 Test Item Value Reference Range Interpretation Comments Split Point Rapid (test code = Split 0.6 min Point Rapid) [place] [address]-02-21 12:50:00 Test Item Value Reference Range Interpretation Comments R-time Rapid (test code = R-time 0.7 min 0.4-0.7 Rapid) [place] [address]-02-21 12:50:00 Test Item Value Reference Range Interpretation Comments K-time Rapid (test code = K-time 1.1 min 0.6-2.3 Rapid) [place] [address]-02-21 12:50:00 Test Item Value Reference Range Interpretation Comments Angle Rapid (test code = Angle 78 degrees 64-80 Rapid) [place] 633383-02-21 12:50:00 Test Item Value Reference Range Interpretation Comments Max Amplitude Rapid (test code = Max 65 mm 52-71 Amplitude Rapid) [place] [address]-02-21 12:50:00 Test Item Value Reference Range Interpretation Comments G-value Rapid (test code = G-value 9.2 5.0-11.6 Rapid) [place] [address]-02-21 12:50:00 Test Item Value Reference Range Interpretation Comments Estimated % Lysis Rapid 0.0 See_Comment [Au tomated message] The (test code = Estimated syste m which generated % Lysis Rapid) this result t ransmitted reference range : <=7.5. The reference r christiano was not used to int erpret this result as normal/abnormal . [place] 633383-02-21 12:50:00 Test Item Value Reference Range Interpretation Comments Plt Morph (test code = See Note 1(11/21/22 Plt Morph) 6:50 AM) [place] [address]-02-21 12:50:00 Test Item Value Reference Range Interpretation Comments Segs (test code = Segs) 64.1 45.0-75.0 [place] [address]-02-21 12:50:00 Test Item Value Reference Range Interpretation Comments Lymphocytes (test code = Lymphocytes) 22.0 20.0-40.0 [place] [address]-02-21 12:50:00 Test Item Value Reference Range Interpretation Comments Monocytes (test code = Monocytes) 8.3 2.0-12.0 [place] [address]-02-21 12:50:00 Test Item Value Reference Range Interpretation Comments Eosinophils (test code = 4.7 See_Comment [A utomated message] The Eosinophils) system which ge nerated this result tra nsmitted reference range : <=4.0. The reference r christiano was not used to int erpret this result as normal/abnormal . [place] 633383-02-21 12:50:00 Test Item Value Reference Range Interpretation Comments Basophils (test code = 0.9 See_Comment [Aut omated message] The Basophils) system which ge nerated this result tra nsmitted reference range : <=1.0. The reference r christiano was not used to int erpret this result as normal/abnormal . [facility] HospitalQeaknvvJSJRRHOGXB4911-25-61 12:50:00 Test Item Value Reference Range Interpretation Comments Neutrophils # (test code = Neutrophils 5.6 1.5-8.1 #) [facility] HospitalEprbpmbOZZMMOMGER8682-62-17 12:50:00 Test Item Value Reference Range Interpretation Comments Lymphocytes # (test code = Lymphocytes 1.9 1.0-5.5 #) [facility] HospitalArnmshkQYSPNARYPP2696-53-47 12:50:00 Test Item Value Reference Range Interpretation Comments Monocytes # (test code 0.7 See_Comment [Aut omated message] The = Monocytes #) system which generated this result tra nsmitted reference range : <=0.8. The reference r christiano was not used to int erpret this result as normal/abnormal . [facility] HospitalNfyyuxjVVVUHYCYFQ6588-43-81 12:50:00 Test Item Value Reference Range Interpretation Comments Eosinophils # (test code 0.4 See_Comment [A utomated message] The = Eosinophils #) system whic h generated this result tra nsmitted reference range : <=0.5. The reference r christiano was not used to int erpret this result as normal/abnormal . [facility] HospitalGhprhovIEEWGVSXUN9219-21-32 12:50:00 Test Item Value Reference Range Interpretation Comments Basophils # (test code 0.1 See_Comment [Aut omated message] The = Basophils #) system which generated this result tra nsmitted reference range : <=0.2. The reference r christiano was not used to int erpret this result as normal/abnormal . [facility] HospitalCvjjwtzIAHLQQRUOS3169-12-63 12:50:00 Test Item Value Reference Range Interpretation Comments Stomatocyte (test code = Stomatocyte) slight [facility] HospitalRzjyrfrJJRQMGDYDM1005-32-20 12:50:00 Test Item Value Reference Range Interpretation Comments Ethanol Lvl (test code = Ethanol Lvl) no gt [facility] HospitalBcwyimcJVMDGVALHO3442-96-87 12:50:00 Test Item Value Reference Range Interpretation Comments Etoh (%) (test code = Etoh (%)) no gt [facility] [id number] 12:50:00 Test Item Value Reference Range Interpretation Comments ABO/Rh (test code = ABO/Rh) O POS [facility] [employer] [id number] 12:50:00 Test Item Value Reference Range Interpretation Comments Antibody Scrn (test Negative (11/21/22 6:50 code = Antibody Scrn) AM) [facility] [employer] [id number] 12:50:00 Test Item Value Reference Range Interpretation Comments ABO/Rh (test code = ABO/Rh) O POS [facility] [employer] [id number] 12:50:00 Test Item Value Reference Range Interpretation Comments Antibody Scrn (test Negative (11/21/22 6:50 code = Antibody Scrn) AM) [facility] [employer] TechnologyCARDIAC [id number] 12:50:00 Test Item Value Reference Range Interpretation Comments HS Troponin I (test code = HS Troponin 15 I) [facility] [employer] [id number] 12:50:00 Test Item Value Reference Range Interpretation Comments Glucose Lvl (test code = Glucose Lvl) 99 70-99 [facility] [employer] [id number] 12:50:00 Test Item Value Reference Range Interpretation Comments BUN (test code = BUN) 38 7-22 [facility] [employer] [id number] 12:50:00 Test Item Value Reference Range Interpretation Comments Creatinine Lvl (test code = Creatinine 2.38 0.50-1.40 Lvl) [facility] [employer] [id number] 12:50:00 Test Item Value Reference Range Interpretation Comments Sodium Lvl (test code = Sodium Lvl) 140 135-145 [facility]2023-02-21 12:50:00 Test Item Value Reference Range Interpretation Comments Potassium Lvl (test code = Potassium 3.9 3.5-5.1 Lvl) [facility]2023-02-21 12:50:00 Test Item Value Reference Range Interpretation Comments Chloride Lvl (test code = Chloride Lvl) 107 95-109 [facility] [employer] [id number] 12:50:00 Test Item Value Reference Range Interpretation Comments CO2 (test code = CO2) 27 24-32 [facility] [employer] [id number] 12:50:00 Test Item Value Reference Range Interpretation Comments Calcium Lvl (test code = Calcium Lvl) 8.1 8.5-10.5 [place] 454363-02-21 12:50:00 Test Item Value Reference Range Interpretation Comments AGAP (test code = AGAP) 9.9 10.0-20.0 [place] 454363-02-21 12:50:00 Test Item Value Reference Range Interpretation Comments eGFR (test code = eGFR) 20 [place] 454363-02-21 12:50:00 Test Item Value Reference Range Interpretation Comments Lactic Acid Lvl (test code = Lactic 0.7 0.5-2.2 Acid Lvl) [place] 454363-02-21 12:50:00 Test Item Value Reference Range Interpretation Comments Total Protein (test code = Total 6.1 6.4-8.4 Protein) [place] 454363-02-21 12:50:00 Test Item Value Reference Range Interpretation Comments Albumin Lvl (test code = Albumin Lvl) 2.9 3.5-5.0 [place] 454363-02-21 12:50:00 Test Item Value Reference Range Interpretation Comments Globulin (test code = Globulin) 3.2 2.7-4.2 [place] 454363-02-21 12:50:00 Test Item Value Reference Range Interpretation Comments A/G Ratio (test code = A/G Ratio) 0.9 1 0.7-1.6 [place] 454363-02-21 12:50:00 Test Item Value Reference Range Interpretation Comments ALT (test code = ALT) 16 See_Comment [Auto mated message] The system which ge nerated this result transmit sheba reference range : <=65. The reference range was not used to interpr et this result as edy l/abnormal. [place] 454363-02-21 12:50:00 Test Item Value Reference Range Interpretation Comments AST (test code = AST) 15 See_Comment [Auto mated message] The system which ge nerated this result transmit sheba reference range : <=37. The reference range was not used to interpr et this result as edy l/abnormal. [place] 454363-02-21 12:50:00 Test Item Value Reference Range Interpretation Comments Alk Phos (test code = Alk Phos) 96 39-136 [facility]TR[facility] [id number] 12:50:00 Test Item Value Reference Range Interpretation Comments Bili Total (test code = Bili Total) 0.2 0.2-1.3 [facility]IM[facility] - [employer] [id number] 12:50:00 Test Item Value Reference Range Interpretation Comments Bili Direct (test code no gt See_Comment [Aut omated message] The = Bili Direct) system which generated this result tra nsmitted reference range : <=0.3. The reference r christiano was not used to int erpret this result as edy l/abnormal. [facility] - [employer] [id number] 12:50:00 Test Item Value Reference Range Interpretation Comments Bili Indirect Unable to See_Comment [Automated (test code = Bili Calculate message] T he system Indirect) which generated this result transmitted reference range : <=1.0. The reference range was not used to interpret this result as normal/abnormal . [facility]IbowblvCXWLWEOHU3474-54-07 12:50:00 Test Item Value Reference Range Interpretation Comments Ethanol Lvl (test code = Ethanol Lvl) no gt [place] 711343-02-21 12:50:00 Test Item Value Reference Range Interpretation Comments Etoh (%) (test code = Etoh (%)) no gt [facility] HospitalJixtmoaQDTGUJHHX8181-74-99 12:50:00 Test Item Value Reference Range Interpretation Comments Lactic Acid Lvl (test code = Lactic 0.7 0.5-2.2 Acid Lvl) [place] 711343-02-21 12:50:00 Test Item Value Reference Range Interpretation Comments Total Protein (test code = Total 6.1 6.4-8.4 Protein) [place] 711343-02-21 12:50:00 Test Item Value Reference Range Interpretation Comments Albumin Lvl (test code = Albumin Lvl) 2.9 3.5-5.0 [place] [address]-02-21 12:50:00 Test Item Value Reference Range Interpretation Comments Globulin (test code = Globulin) 3.2 2.7-4.2 [place] [address]-02-21 12:50:00 Test Item Value Reference Range Interpretation Comments A/G Ratio (test code = A/G Ratio) 0.9 1 0.7-1.6 [place] [address]-02-21 12:50:00 Test Item Value Reference Range Interpretation Comments ALT (test code = ALT) 16 See_Comment [Auto mated message] The system which ge nerated this result transmit sehba reference range : <=65. The reference range was not used to interpr et this result as edy l/abnormal. [facility]EqwdpnaQRGQPNOUS3686-40-81 12:50:00 Test Item Value Reference Range Interpretation Comments AST (test code = AST) 15 See_Comment [Auto mated message] The system which ge nerated this result transmit sheba reference range : <=37. The reference range was not used to interpr et this result as edy l/abnormal. [facility] WyuqwprRAFFYTRIZ0221-44-22 12:50:00 Test Item Value Reference Range Interpretation Comments Alk Phos (test code = Alk Phos) 96 39-136 [facility] CenterEyaklkuSCBDMINYT8101-13-16 12:50:00 Test Item Value Reference Range Interpretation Comments Bili Total (test code = Bili Total) 0.2 0.2-1.3 [facility] CenterBhbqtseGWMSESCWJ1850-22-53 12:50:00 Test Item Value Reference Range Interpretation Comments Bili Direct (test code no gt See_Comment [Aut omated message] The = Bili Direct) system which generated this result tra nsmitted reference range : <=0.3. The reference r christiano was not used to int erpret this result as edy l/abnormal. [facility] CenterXcllhhkJOJXBKUTH5836-01-39 12:50:00 Test Item Value Reference Range Interpretation Comments Bili Indirect Unable to See_Comment [Automated (test code = Bili Calculate message] T he system Indirect) which generated this result transmitted reference range : <=1.0. The reference range was not used to interpret this result as normal/abnormal . [facility] CenterQolqdfsGXILDNKKP9078-93-85 12:50:00 Test Item Value Reference Range Interpretation Comments HS Troponin I (test code = HS Troponin 15 I) [facility] CenterUzrckamQCQWMLOSU3878-77-41 12:50:00 Test Item Value Reference Range Interpretation Comments pH Justin (test code = pH Justin) 7.35 1 7.28-7.42 [facility] CenterGqopsxfDZIJXEQRG4141-27-16 12:50:00 Test Item Value Reference Range Interpretation Comments pCO2 Justin (test code = pCO2 Jsutin) 55 38-52 [place] 711343-02-21 12:50:00 Test Item Value Reference Range Interpretation Comments pO2 Justin (test code = pO2 Justin) 43 20-49 [place] 711343-02-21 12:50:00 Test Item Value Reference Range Interpretation Comments HCO3 Justin (test code = HCO3 Justin) 30 22-26 [place] [address]-02-21 12:50:00 Test Item Value Reference Range Interpretation Comments BE Justin (test code = BE Justin) 3 -2-2 [place] 711343-02-21 12:50:00 Test Item Value Reference Range Interpretation Comments O2 Sat Justin (calc) (test code = O2 Sat 75.9 40.0-70.0 Jutsin (calc)) [place] 711343-02-21 12:50:00 Test Item Value Reference Range Interpretation Comments Temp Justin (test code = Temp Justin) 37.0 [place] 633383-02-21 12:50:00 Test Item Value Reference Range Interpretation Comments ACT (TEG) Rapid (test code = ACT (TEG) 113 s 86-118 Rapid) [place] 633383-02-21 12:50:00 Test Item Value Reference Range Interpretation Comments Split Point Rapid (test code = Split 0.6 min Point Rapid) [place] 633383-02-21 12:50:00 Test Item Value Reference Range Interpretation Comments R-time Rapid (test code = R-time 0.7 min 0.4-0.7 Rapid) [place] 633383-02-21 12:50:00 Test Item Value Reference Range Interpretation Comments K-time Rapid (test code = K-time 1.1 min 0.6-2.3 Rapid) [place] 633383-02-21 12:50:00 Test Item Value Reference Range Interpretation Comments Angle Rapid (test code = Angle 78 degrees 64-80 Rapid) [place] 633383-02-21 12:50:00 Test Item Value Reference Range Interpretation Comments Max Amplitude Rapid (test code = Max 65 mm 52-71 Amplitude Rapid) [place] 633383-02-21 12:50:00 Test Item Value Reference Range Interpretation Comments G-value Rapid (test code = G-value 9.2 5.0-11.6 Rapid) [place] 633383-02-21 12:50:00 Test Item Value Reference Range Interpretation Comments Estimated % Lysis Rapid 0.0 See_Comment [Au tomated message] The (test code = Estimated syste m which generated % Lysis Rapid) this result t ransmitted reference range : <=7.5. The reference r christiano was not used to int erpret this result as normal/abnormal . [facility] HospitalIebigrsBSXIYPDFHC2737-76-25 12:50:00 Test Item Value Reference Range Interpretation Comments Plt Morph (test code = See Note 1(11/21/22 Plt Morph) 6:50 AM) [facility] HospitalMidfijmEAIYFZRUUB7822-49-72 12:50:00 Test Item Value Reference Range Interpretation Comments Stomatocyte (test code = Stomatocyte) slight [facility] HospitalRaviftsREGRGBVSUO6239-49-89 12:50:00 Test Item Value Reference Range Interpretation Comments WBC X 10x3 (test code = WBC X 10x3) 8.7 3.7-10.4 [facility] HospitalTscclhzYVGAYVMLYJ8445-93-04 12:50:00 Test Item Value Reference Range Interpretation Comments RBC X 10x6 (test code = RBC X 10x6) 3.56 4.20-5.40 [facility] HospitalNnothdsXRHENRLNMH7348-41-30 12:50:00 Test Item Value Reference Range Interpretation Comments Hgb (test code = Hgb) 10.4 12.0-16.0 [place] 633383-02-21 12:50:00 Test Item Value Reference Range Interpretation Comments Hct (test code = Hct) 32.3 36.0-48.0 [place] 633383-02-21 12:50:00 Test Item Value Reference Range Interpretation Comments MCV (test code = MCV) 90.8 80.0-98.0 [place] 633383-02-21 12:50:00 Test Item Value Reference Range Interpretation Comments MCH (test code = MCH) 29.3 pg 27.0-31.0 [facility] HospitalSqxghdrIOAMFTKRBM3232-47-16 12:50:00 Test Item Value Reference Range Interpretation Comments MCHC (test code = MCHC) 32.2 32.0-36.0 [facility] HospitalLxcvqlqDTYQSOFQUB0445-86-56 12:50:00 Test Item Value Reference Range Interpretation Comments RDW (test code = RDW) 13.7 11.5-14.5 [place] [address]-02-21 12:50:00 Test Item Value Reference Range Interpretation Comments Platelet (test code = Platelet) 137 133-450 [place] [address]-02-21 12:50:00 Test Item Value Reference Range Interpretation Comments MPV (test code = MPV) 7.9 7.4-10.4 [place] [address]-02-21 12:50:00 Test Item Value Reference Range Interpretation Comments ACT (TEG) Rapid (test code = ACT (TEG) 113 s 86-118 Rapid) [place] [address]-02-21 12:50:00 Test Item Value Reference Range Interpretation Comments Split Point Rapid (test code = Split 0.6 min Point Rapid) [place] [address]-02-21 12:50:00 Test Item Value Reference Range Interpretation Comments R-time Rapid (test code = R-time 0.7 min 0.4-0.7 Rapid) [place] [address]-02-21 12:50:00 Test Item Value Reference Range Interpretation Comments K-time Rapid (test code = K-time 1.1 min 0.6-2.3 Rapid) [place] [address]-02-21 12:50:00 Test Item Value Reference Range Interpretation Comments Angle Rapid (test code = Angle 78 degrees 64-80 Rapid) [place] [address]-02-21 12:50:00 Test Item Value Reference Range Interpretation Comments Max Amplitude Rapid (test code = Max 65 mm 52-71 Amplitude Rapid) [place] [address]-02-21 12:50:00 Test Item Value Reference Range Interpretation Comments G-value Rapid (test code = G-value 9.2 5.0-11.6 Rapid) [place] [address]-02-21 12:50:00 Test Item Value Reference Range Interpretation Comments Estimated % Lysis Rapid 0.0 See_Comment [Au tomated message] The (test code = Estimated syste m which generated % Lysis Rapid) this result t ransmitted reference range : <=7.5. The reference r christiano was not used to int erpret this result as normal/abnormal . [place] 633383-02-21 12:50:00 Test Item Value Reference Range Interpretation Comments Plt Morph (test code = See Note 1(11/21/22 Plt Morph) 6:50 AM) [place] 633383-02-21 12:50:00 Test Item Value Reference Range Interpretation Comments Segs (test code = Segs) 64.1 45.0-75.0 [place] 633383-02-21 12:50:00 Test Item Value Reference Range Interpretation Comments Lymphocytes (test code = Lymphocytes) 22.0 20.0-40.0 [place] [address]-02-21 12:50:00 Test Item Value Reference Range Interpretation Comments Monocytes (test code = Monocytes) 8.3 2.0-12.0 [place] [address]-02-21 12:50:00 Test Item Value Reference Range Interpretation Comments Eosinophils (test code = 4.7 See_Comment [A utomated message] The Eosinophils) system which ge nerated this result tra nsmitted reference range : <=4.0. The reference r christiano was not used to int erpret this result as normal/abnormal . [place] 633383-02-21 12:50:00 Test Item Value Reference Range Interpretation Comments Basophils (test code = 0.9 See_Comment [Aut omated message] The Basophils) system which ge nerated this result tra nsmitted reference range : <=1.0. The reference r christiano was not used to int erpret this result as normal/abnormal . [place] 633383-02-21 12:50:00 Test Item Value Reference Range Interpretation Comments Neutrophils # (test code = Neutrophils 5.6 1.5-8.1 #) [place] 633383-02-21 12:50:00 Test Item Value Reference Range Interpretation Comments Lymphocytes # (test code = Lymphocytes 1.9 1.0-5.5 #) [place] [address]-02-21 12:50:00 Test Item Value Reference Range Interpretation Comments Monocytes # (test code 0.7 See_Comment [Aut omated message] The = Monocytes #) system which generated this result tra nsmitted reference range : <=0.8. The reference r christiano was not used to int erpret this result as normal/abnormal . [place] 633383-02-21 12:50:00 Test Item Value Reference Range Interpretation Comments Eosinophils # (test code 0.4 See_Comment [A utomated message] The = Eosinophils #) system whic h generated this result tra nsmitted reference range : <=0.5. The reference r christiano was not used to int erpret this result as normal/abnormal . [facility] HzqwwsiUPJMXLGHRZ8255-89-09 12:50:00 Test Item Value Reference Range Interpretation Comments Basophils # (test code 0.1 See_Comment [Aut omated message] The = Basophils #) system which generated this result tra nsmitted reference range : <=0.2. The reference r christiano was not used to int erpret this result as normal/abnormal . [facility] BsnicyrXJEDENNYQI6216-02-84 12:50:00 Test Item Value Reference Range Interpretation Comments Stomatocyte (test code = Stomatocyte) slight [facility] MghqaohMXHFZMHTAE0294-22-51 12:50:00 Test Item Value Reference Range Interpretation Comments Ethanol Lvl (test code = Ethanol Lvl) no gt [facility] UnczqcuLDTRDCCQDD4197-61-41 12:50:00 Test Item Value Reference Range Interpretation Comments Etoh (%) (test code = Etoh (%)) no gt [facility] [employer] XBMXNUQ0436-04-71 12:50:00 Test Item Value Reference Range Interpretation Comments ABO/Rh (test code = ABO/Rh) O POS [facility] [employer] MGZCBPX6704-90-06 12:50:00 Test Item Value Reference Range Interpretation Comments Antibody Scrn (test Negative (11/21/22 6:50 code = Antibody Scrn) AM) [facility] [employer] NRCIEGA8105-52-59 12:50:00 Test Item Value Reference Range Interpretation Comments ABO/Rh (test code = ABO/Rh) O POS [facility] [employer] AAUPYAY9012-20-33 12:50:00 Test Item Value Reference Range Interpretation Comments Antibody Scrn (test Negative (11/21/22 6:50 code = Antibody Scrn) AM) [facility] [employer] TechnologyCARDIAC WODGFFA8763-60-95 12:50:00 Test Item Value Reference Range Interpretation Comments HS Troponin I (test code = HS Troponin 15 I) [facility] [employer] KPBZM3025-54-06 12:50:00 Test Item Value Reference Range Interpretation Comments Glucose Lvl (test code = Glucose Lvl) 99 70-99 [facility] [employer] LNSUS7520-14-27 12:50:00 Test Item Value Reference Range Interpretation Comments BUN (test code = BUN) 38 7-22 [place] 454363-02-21 12:50:00 Test Item Value Reference Range Interpretation Comments Creatinine Lvl (test code = Creatinine 2.38 0.50-1.40 Lvl) [place] 454363-02-21 12:50:00 Test Item Value Reference Range Interpretation Comments Sodium Lvl (test code = Sodium Lvl) 140 135-145 [place] 454363-02-21 12:50:00 Test Item Value Reference Range Interpretation Comments Potassium Lvl (test code = Potassium 3.9 3.5-5.1 Lvl) [place] 454363-02-21 12:50:00 Test Item Value Reference Range Interpretation Comments Chloride Lvl (test code = Chloride Lvl) 107 95-109 [place] 454363-02-21 12:50:00 Test Item Value Reference Range Interpretation Comments CO2 (test code = CO2) 27 24-32 [place] 454363-02-21 12:50:00 Test Item Value Reference Range Interpretation Comments Calcium Lvl (test code = Calcium Lvl) 8.1 8.5-10.5 [place] 454363-02-21 12:50:00 Test Item Value Reference Range Interpretation Comments AGAP (test code = AGAP) 9.9 10.0-20.0 [place] 454363-02-21 12:50:00 Test Item Value Reference Range Interpretation Comments eGFR (test code = eGFR) 20 [place] 454363-02-21 12:50:00 Test Item Value Reference Range Interpretation Comments Lactic Acid Lvl (test code = Lactic 0.7 0.5-2.2 Acid Lvl) [place] 454363-02-21 12:50:00 Test Item Value Reference Range Interpretation Comments Total Protein (test code = Total 6.1 6.4-8.4 Protein) [place] 454363-02-21 12:50:00 Test Item Value Reference Range Interpretation Comments Albumin Lvl (test code = Albumin Lvl) 2.9 3.5-5.0 [place] 454363-02-21 12:50:00 Test Item Value Reference Range Interpretation Comments Globulin (test code = Globulin) 3.2 2.7-4.2 [place] [address]-02-21 12:50:00 Test Item Value Reference Range Interpretation Comments A/G Ratio (test code = A/G Ratio) 0.9 1 0.7-1.6 [place] [address]-02-21 12:50:00 Test Item Value Reference Range Interpretation Comments ALT (test code = ALT) 16 See_Comment [Auto mated message] The system which ge nerated this result transmit sheba reference range : <=65. The reference range was not used to interpr et this result as edy l/abnormal. [place] [address]-02-21 12:50:00 Test Item Value Reference Range Interpretation Comments AST (test code = AST) 15 See_Comment [Auto mated message] The system which ge nerated this result transmit sheba reference range : <=37. The reference range was not used to interpr et this result as edy l/abnormal. [place] [address]-02-21 12:50:00 Test Item Value Reference Range Interpretation Comments Alk Phos (test code = Alk Phos) 96 39-136 [place] [address]-02-21 12:50:00 Test Item Value Reference Range Interpretation Comments Bili Total (test code = Bili Total) 0.2 0.2-1.3 [place] [address]-02-21 12:50:00 Test Item Value Reference Range Interpretation Comments Bili Direct (test code no gt See_Comment [Aut omated message] The = Bili Direct) system which generated this result tra nsmitted reference range : <=0.3. The reference r christiano was not used to int erpret this result as edy l/abnormal. [place] [address]-02-21 12:50:00 Test Item Value Reference Range Interpretation Comments Bili Indirect Unable to See_Comment [Automated (test code = Bili Calculate message] T he system Indirect) which generated this result transmitted reference range : <=1.0. The reference range was not used to interpret this result as normal/abnormal . [place] [address]-02-21 12:50:00 Test Item Value Reference Range Interpretation Comments Ethanol Lvl (test code = Ethanol Lvl) no gt [place] [address]-02-21 12:50:00 Test Item Value Reference Range Interpretation Comments Etoh (%) (test code = Etoh (%)) [facility]t [facility] 12:50:00 Test Item Value Reference Range Interpretation Comments Lactic Acid Lvl (test code = Lactic 0.7 0.5-2.2 Acid Lvl) [place] 711343-02-21 12:50:00 Test Item Value Reference Range Interpretation Comments Total Protein (test code = Total 6.1 6.4-8.4 Protein) [place] 711343-02-21 12:50:00 Test Item Value Reference Range Interpretation Comments Albumin Lvl (test code = Albumin Lvl) 2.9 3.5-5.0 [place] 711343-02-21 12:50:00 Test Item Value Reference Range Interpretation Comments Globulin (test code = Globulin) 3.2 2.7-4.2 [place] 711343-02-21 12:50:00 Test Item Value Reference Range Interpretation Comments A/G Ratio (test code = A/G Ratio) 0.9 1 0.7-1.6 [place] 711343-02-21 12:50:00 Test Item Value Reference Range Interpretation Comments ALT (test code = ALT) 16 See_Comment [Auto mated message] The system which ge nerated this result transmit sheba reference range : <=65. The reference range was not used to interpr et this result as edy l/abnormal. [facility]vwyvyKPBPUQHUL5904-53-90 12:50:00 Test Item Value Reference Range Interpretation Comments AST (test code = AST) 15 See_Comment [Auto mated message] The system which ge nerated this result transmit sheba reference range : <=37. The reference range was not used to interpr et this result as edy l/abnormal. [facility]iscoTslghzqGNXAOSURJ8101-17-69 12:50:00 Test Item Value Reference Range Interpretation Comments Alk Phos (test code = Alk Phos) 96 39-136 [facility]iscoKkkegxdSRZBYDJPM0177-90-71 12:50:00 Test Item Value Reference Range Interpretation Comments Bili Total (test code = Bili Total) 0.2 0.2-1.3 [place] 711343-02-21 12:50:00 Test Item Value Reference Range Interpretation Comments Bili Direct (test code no gt See_Comment [Aut omated message] The = Bili Direct) system which generated this result tra nsmitted reference range : <=0.3. The reference r christiano was not used to int erpret this result as edy l/abnormal. [facility]iscoLitutwdSMPRTEPJK7579-73-64 12:50:00 Test Item Value Reference Range Interpretation Comments Bili Indirect Unable to See_Comment [Automated (test code = Bili Calculate message] T he system Indirect) which generated this result transmitted reference range : <=1.0. The reference range was not used to interpret this result as normal/abnormal . [facility]iscoPsvhgnuHKGZLRTYP2002-78-72 12:50:00 Test Item Value Reference Range Interpretation Comments HS Troponin I (test code = HS Troponin 15 I) [facility]iscoMkfkxgfOPQYPJQWH9525-68-07 12:50:00 Test Item Value Reference Range Interpretation Comments pH Justin (test code = pH Justin) 7.35 1 7.28-7.42 [facility]iscoRgdoiyfWOXVLPNJJ0901-07-57 12:50:00 Test Item Value Reference Range Interpretation Comments pCO2 Justin (test code = pCO2 Justin) 55 38-52 [facility]iscoExwfynsHPYNWWJOX4400-66-45 12:50:00 Test Item Value Reference Range Interpretation Comments pO2 Justin (test code = pO2 Justin) 43 20-49 [facility]iscoNihszczQUFXRUWJD9571-55-23 12:50:00 Test Item Value Reference Range Interpretation Comments HCO3 Justin (test code = HCO3 Justin) 30 22-26 [place] 711343-02-21 12:50:00 Test Item Value Reference Range Interpretation Comments BE Justin (test code = BE Justin) 3 -2-2 [facility]iscoXqtoxmwJXGKVSASY5915-22-81 12:50:00 Test Item Value Reference Range Interpretation Comments O2 Sat Justin (calc) (test code = O2 Sat 75.9 40.0-70.0 Justin (calc)) [facility]iscoAhtckouFYRMZQDYS7240-80-34 12:50:00 Test Item Value Reference Range Interpretation Comments Temp Justin (test code = Temp Justin) 37.0 [place] 633383-02-21 12:50:00 Test Item Value Reference Range Interpretation Comments ACT (TEG) Rapid (test code = ACT (TEG) 113 s 86-118 Rapid) [facility] HospitalKquqvzsMNRKYKHIBQ1308-00-08 12:50:00 Test Item Value Reference Range Interpretation Comments Split Point Rapid (test code = Split 0.6 min Point Rapid) [facility] HospitalCgcthekRXHWLDWFUH0353-30-78 12:50:00 Test Item Value Reference Range Interpretation Comments R-time Rapid (test code = R-time 0.7 min 0.4-0.7 Rapid) [place] 633383-02-21 12:50:00 Test Item Value Reference Range Interpretation Comments K-time Rapid (test code = K-time 1.1 min 0.6-2.3 Rapid) [place] 633383-02-21 12:50:00 Test Item Value Reference Range Interpretation Comments Angle Rapid (test code = Angle 78 degrees 64-80 Rapid) [place] 633383-02-21 12:50:00 Test Item Value Reference Range Interpretation Comments Max Amplitude Rapid (test code = Max 65 mm 52-71 Amplitude Rapid) [place] 633383-02-21 12:50:00 Test Item Value Reference Range Interpretation Comments G-value Rapid (test code = G-value 9.2 5.0-11.6 Rapid) [facility] HospitalZwkijutDNAPAIOTRG3145-30-21 12:50:00 Test Item Value Reference Range Interpretation Comments Estimated % Lysis Rapid 0.0 See_Comment [Au tomated message] The (test code = Estimated syste m which generated % Lysis Rapid) this result t ransmitted reference range : <=7.5. The reference r christiano was not used to int erpret this result as normal/abnormal . [facility] HospitalEvoctyxYHLQNBNAHK0799-33-53 12:50:00 Test Item Value Reference Range Interpretation Comments Plt Morph (test code = See Note 1(11/21/22 Plt Morph) 6:50 AM) [place] 633383-02-21 12:50:00 Test Item Value Reference Range Interpretation Comments Stomatocyte (test code = Stomatocyte) slight [place] 633383-02-21 12:50:00 Test Item Value Reference Range Interpretation Comments WBC X 10x3 (test code = WBC X 10x3) 8.7 3.7-10.4 [place] 633383-02-21 12:50:00 Test Item Value Reference Range Interpretation Comments RBC X 10x6 (test code = RBC X 10x6) 3.56 4.20-5.40 [place] 633383-02-21 12:50:00 Test Item Value Reference Range Interpretation Comments Hgb (test code = Hgb) 10.4 12.0-16.0 [place] [address]-02-21 12:50:00 Test Item Value Reference Range Interpretation Comments Hct (test code = Hct) 32.3 36.0-48.0 [place] [address]-02-21 12:50:00 Test Item Value Reference Range Interpretation Comments MCV (test code = MCV) 90.8 80.0-98.0 [place] [address]-02-21 12:50:00 Test Item Value Reference Range Interpretation Comments MCH (test code = MCH) 29.3 pg 27.0-31.0 [place] 633383-02-21 12:50:00 Test Item Value Reference Range Interpretation Comments MCHC (test code = MCHC) 32.2 32.0-36.0 [place] 633383-02-21 12:50:00 Test Item Value Reference Range Interpretation Comments RDW (test code = RDW) 13.7 11.5-14.5 [place] [address]-02-21 12:50:00 Test Item Value Reference Range Interpretation Comments Platelet (test code = Platelet) 137 133-450 [place] 633383-02-21 12:50:00 Test Item Value Reference Range Interpretation Comments MPV (test code = MPV) 7.9 7.4-10.4 [place] [address]-02-21 12:50:00 Test Item Value Reference Range Interpretation Comments ACT (TEG) Rapid (test code = ACT (TEG) 113 s 86-118 Rapid) [place] 633383-02-21 12:50:00 Test Item Value Reference Range Interpretation Comments Split Point Rapid (test code = Split 0.6 min Point Rapid) [place] [address]-02-21 12:50:00 Test Item Value Reference Range Interpretation Comments R-time Rapid (test code = R-time 0.7 min 0.4-0.7 Rapid) [place] [address]-02-21 12:50:00 Test Item Value Reference Range Interpretation Comments K-time Rapid (test code = K-time 1.1 min 0.6-2.3 Rapid) [place] [address]-02-21 12:50:00 Test Item Value Reference Range Interpretation Comments Angle Rapid (test code = Angle 78 degrees 64-80 Rapid) [place] [address]-02-21 12:50:00 Test Item Value Reference Range Interpretation Comments Max Amplitude Rapid (test code = Max 65 mm 52-71 Amplitude Rapid) [place] [address]-02-21 12:50:00 Test Item Value Reference Range Interpretation Comments G-value Rapid (test code = G-value 9.2 5.0-11.6 Rapid) [place] [address]-02-21 12:50:00 Test Item Value Reference Range Interpretation Comments Estimated % Lysis Rapid 0.0 See_Comment [Au tomated message] The (test code = Estimated syste m which generated % Lysis Rapid) this result t ransmitted reference range : <=7.5. The reference r christiano was not used to int erpret this result as normal/abnormal . [place] 633383-02-21 12:50:00 Test Item Value Reference Range Interpretation Comments Plt Morph (test code = See Note 1(11/21/22 Plt Morph) 6:50 AM) [place] [address]-02-21 12:50:00 Test Item Value Reference Range Interpretation Comments Segs (test code = Segs) 64.1 45.0-75.0 [place] [address]-02-21 12:50:00 Test Item Value Reference Range Interpretation Comments Lymphocytes (test code = Lymphocytes) 22.0 20.0-40.0 [place] [address]-02-21 12:50:00 Test Item Value Reference Range Interpretation Comments Monocytes (test code = Monocytes) 8.3 2.0-12.0 [place] [address]-02-21 12:50:00 Test Item Value Reference Range Interpretation Comments Eosinophils (test code = 4.7 See_Comment [A utomated message] The Eosinophils) system which ge nerated this result tra nsmitted reference range : <=4.0. The reference r christiano was not used to int erpret this result as normal/abnormal . [place] [address]-02-21 12:50:00 Test Item Value Reference Range Interpretation Comments Basophils (test code = 0.9 See_Comment [Aut omated message] The Basophils) system which ge nerated this result tra nsmitted reference range : <=1.0. The reference r christiano was not used to int erpret this result as normal/abnormal . [facility] HospitalAcwowjuGEGNKZJEXJ1662-94-17 12:50:00 Test Item Value Reference Range Interpretation Comments Neutrophils # (test code = Neutrophils 5.6 1.5-8.1 #) [facility] HospitalUrjikfhSZHUFMHMBD0497-91-97 12:50:00 Test Item Value Reference Range Interpretation Comments Lymphocytes # (test code = Lymphocytes 1.9 1.0-5.5 #) [facility] HospitalYmfwkxvFDSIZDFJPF3329-51-01 12:50:00 Test Item Value Reference Range Interpretation Comments Monocytes # (test code 0.7 See_Comment [Aut omated message] The = Monocytes #) system which generated this result tra nsmitted reference range : <=0.8. The reference r christiano was not used to int erpret this result as normal/abnormal . [facility] HospitalJwtixbzYKBVVRCMMU0081-67-30 12:50:00 Test Item Value Reference Range Interpretation Comments Eosinophils # (test code 0.4 See_Comment [A utomated message] The = Eosinophils #) system whic h generated this result tra nsmitted reference range : <=0.5. The reference r christiano was not used to int erpret this result as normal/abnormal . [facility] HospitalHwpdnhoNPHXOYHWWK5817-82-63 12:50:00 Test Item Value Reference Range Interpretation Comments Basophils # (test code 0.1 See_Comment [Aut omated message] The = Basophils #) system which generated this result tra nsmitted reference range : <=0.2. The reference r christiano was not used to int erpret this result as normal/abnormal . [facility] HospitalJmmrtfqRCSYNUPNYP0116-08-13 12:50:00 Test Item Value Reference Range Interpretation Comments Stomatocyte (test code = Stomatocyte) slight [facility]TibrufjRCCOUJEWBV7954-27-23 12:50:00 Test Item Value Reference Range Interpretation Comments Ethanol Lvl (test code = Ethanol Lvl) [facility] gt [facility]wwuWVVRFKSPFA7189-70-49 12:50:00 Test Item Value Reference Range Interpretation Comments Etoh (%) (test code = Etoh (%)) no gt [place] [id number] 12:25:01 Test Item Value Reference Range Interpretation [...] and [facility] the [facility]ella[facility] Test Item Value Reference Range Interpretation [...] and resurfacing of the patella.[facility]01 Test Item Value Reference Range Interpretation [...] and resurfacing of the patella.[facility]01 Test Item Value Reference Range Interpretation [...] and resurfacing of the patella.[facility]:01 Test Item Value Reference Range Interpretation [...] and resurfacing of the patella.[facility] 12:25:01 Test Item Value Reference Range Interpretation [...] and resurfacing of the patella.[facility] 12:25:01 Test Item Value Reference Range Interpretation [...] and resurfacing of the patella.[facility] 12:25:01 Test Item Value Reference Range Interpretation [...] and resurfacing of the patella.[facility] 12:25:01 Test Item Value Reference Range Interpretation [...] and resurfacing of the patella.[facility] 12:25:01 Test Item Value Reference Range Interpretation [...] and resurfacing of the patella.[facility] 12:25:01 Test Item Value Reference Range Interpretation [...] arthroplasty and resurfacing of the patella.UT SECTION: [place] [id number] 11:23:44 Test Item Value Reference Range Interpretation [...] along the tentorium. No significant midline shift. [place] 30892023-02-21 11:23:44 Test Item Value Reference Range Interpretation [...] along the tentorium. No significant midline shift. [facility] 11:23:44 Test Item Value Reference Range Interpretation [...] along the tentorium. No significant midline shift. [facility] HospitalLwhxzcoKGUDJY5834-81-80 11:23:44 Test Item Value Reference Range Interpretation [...] along the tentorium. No significant midline shift. [facility] HospitalOzubkfwUXJKVJ4306-15-39 11:23:44 Test Item Value Reference Range Interpretation [...] along the tentorium. No significant midline shift. [facility] HospitalQqnocduUUVXZF1135-46-88 11:23:44 Test Item Value Reference Range Interpretation [...] along the tentorium. No significant midline shift. [facility] HospitalQruqnbwLYQIUC4265-66-07 11:23:44 Test Item Value Reference Range Interpretation [...] along the tentorium. No significant midline shift. [facility] HospitalQwbxscmFEPNUV7874-68-99 11:23:44 Test Item Value Reference Range Interpretation [...] along the tentorium. No significant midline shift. [facility] HospitalTnjbqifARDSGU3593-18-43 11:23:44 Test Item Value Reference Range Interpretation [...] along the tentorium. No significant midline shift. [place] 30892023-02-21 11:23:44 Test Item Value Reference Range Interpretation [...] along the tentorium. No significant midline shift. [place] 515053-02-21 11:23:44 Test Item Value Reference Range Interpretation [...] the tentorium. No significant midline shift. [facility]2020-12-07 10:24:00 Test Item Value Reference Range Interpretation Comments Glucose Lvl (test code = Glucose Lvl) 66 70-99 [facility]2020-12-07 10:24:00 Test Item Value Reference Range Interpretation Comments BUN (test code = BUN) 19 7-22 [facility]2020-12-07 10:24:00 Test Item Value Reference Range Interpretation Comments Creatinine Lvl (test code = Creatinine 1.82 0.50-1.40 Lvl) [facility]2020-12-07 10:24:00 Test Item Value Reference Range Interpretation Comments Sodium Lvl (test code = Sodium Lvl) 139 135-145 [facility]2020-12-07 10:24:00 Test Item Value Reference Range Interpretation Comments Potassium Lvl (test code = Potassium 4.2 3.5-5.1 Lvl) [facility]2020-12-07 10:24:00 Test Item Value Reference Range Interpretation Comments Chloride Lvl (test code = Chloride Lvl) 105 95-109 [facility]2020-12-07 10:24:00 Test Item Value Reference Range Interpretation Comments CO2 (test code = CO2) 28 24-32 [facility]2020-12-07 10:24:00 Test Item Value Reference Range Interpretation Comments Calcium Lvl (test code = Calcium Lvl) 8.2 8.5-10.5 [facility]2020-12-07 10:24:00 Test Item Value Reference Range Interpretation Comments AGAP (test code = AGAP) 10.2 10.0-20.0 [facility]2020-12-07 10:24:00 Test Item Value Reference Range Interpretation Comments Glucose Lvl (test code = Glucose Lvl) 66 70-99 [facility]2020-12-07 10:24:00 Test Item Value Reference Range Interpretation Comments BUN (test code = BUN) 19 7-22 [facility]2020-12-07 10:24:00 Test Item Value Reference Range Interpretation Comments Creatinine Lvl (test code = Creatinine 1.82 0.50-1.40 Lvl) [facility]2020-12-07 10:24:00 Test Item Value Reference Range Interpretation Comments Sodium Lvl (test code = Sodium Lvl) 139 135-145 [facility]2020-12-07 10:24:00 Test Item Value Reference Range Interpretation Comments Potassium Lvl (test code = Potassium 4.2 3.5-5.1 Lvl) [facility]2020-12-07 10:24:00 Test Item Value Reference Range Interpretation Comments eGFR (test code = eGFR) 26 [facility]2020-12-07 10:24:00 Test Item Value Reference Range Interpretation Comments Chloride Lvl (test code = Chloride Lvl) 105 95-109 [facility]2020-12-07 10:24:00 Test Item Value Reference Range Interpretation Comments CO2 (test code = CO2) 28 24-32 [facility]2020-12-07 10:24:00 Test Item Value Reference Range Interpretation Comments Calcium Lvl (test code = Calcium Lvl) 8.2 8.5-10.5 [facility]2020-12-07 10:24:00 Test Item Value Reference Range Interpretation Comments AGAP (test code = AGAP) 10.2 10.0-20.0 [facility]2020-12-07 10:24:00 Test Item Value Reference Range Interpretation Comments eGFR (test code = eGFR) 26 [facility]JtrzqxdKUCDWHTHDB9721-84-01 10:24:00 Test Item Value Reference Range Interpretation Comments Segs (test code = Segs) 70.6 45.0-75.0 [facility] HospitalVfspjozYHZLTARLWA8828-84-70 10:24:00 Test Item Value Reference Range Interpretation Comments Lymphocytes (test code = Lymphocytes) 13.2 20.0-40.0 [facility] HospitalIiexndwIPDLYBNOGV0287-27-32 10:24:00 Test Item Value Reference Range Interpretation Comments Monocytes (test code = Monocytes) 10.9 2.0-12.0 [facility] HospitalWkvynxpZBVWZZUVYX0555-63-35 10:24:00 Test Item Value Reference Range Interpretation Comments Eosinophils (test code = 4.6 See_Comment [A utomated message] The Eosinophils) system which ge nerated this result tra nsmitted reference range : <=4.0. The reference r christiano was not used to int erpret this result as normal/abnormal . [facility] HospitalIrvoicsTIQZCWUJCW1334-93-08 10:24:00 Test Item Value Reference Range Interpretation Comments Basophils (test code = 0.7 See_Comment [Aut omated message] The Basophils) system which ge nerated this result tra nsmitted reference range : <=1.0. The reference r christiano was not used to int erpret this result as normal/abnormal . [facility] HospitalNfqpclfEGVHFFIWAM1612-63-22 10:24:00 Test Item Value Reference Range Interpretation Comments Segs (test code = Segs) 70.6 45.0-75.0 [facility] HospitalIbiqlgkTNEKBFKVMF7456-65-67 10:24:00 Test Item Value Reference Range Interpretation Comments Neutrophils # (test code = Neutrophils 5.3 1.5-8.1 #) [facility] HospitalAatfxceAGWKBGGWGC3720-23-46 10:24:00 Test Item Value Reference Range Interpretation Comments Lymphocytes # (test code = Lymphocytes 1.0 1.0-5.5 #) [facility] HospitalShobtplTQEFPUGRUP9713-04-88 10:24:00 Test Item Value Reference Range Interpretation Comments Monocytes # (test code 0.8 See_Comment [Aut omated message] The = Monocytes #) system which generated this result tra nsmitted reference range : <=0.8. The reference r christiano was not used to int erpret this result as normal/abnormal . [facility] HospitalJmbbqchIZECGDEVOO5908-62-95 10:24:00 Test Item Value Reference Range Interpretation Comments Eosinophils # (test code 0.3 See_Comment [A utomated message] The = Eosinophils #) system whic h generated this result tra nsmitted reference range : <=0.5. The reference r christiano was not used to int erpret this result as normal/abnormal . [facility] HospitalBrbleogMNPQDBVHZP7979-88-30 10:24:00 Test Item Value Reference Range Interpretation Comments Basophils # (test code 0.1 See_Comment [Aut omated message] The = Basophils #) system which generated this result tra nsmitted reference range : <=0.2. The reference r christiano was not used to int erpret this result as normal/abnormal . [facility] HospitalTpzizxnLKKFWSLIOH8997-61-96 10:24:00 Test Item Value Reference Range Interpretation Comments WBC (test code = WBC) 7.5 3.7-10.4 [facility] HospitalNqfbfnpNPKTSHFXYN1542-44-32 10:24:00 Test Item Value Reference Range Interpretation Comments RBC (test code = RBC) 3.85 4.20-5.40 [facility] HospitalOiqtdqrULSEWBQJGB1173-43-72 10:24:00 Test Item Value Reference Range Interpretation Comments Hgb (test code = Hgb) 10.6 12.0-16.0 [facility] HospitalXbktvitRFCMDLRTUF3066-55-94 10:24:00 Test Item Value Reference Range Interpretation Comments Hct (test code = Hct) 32.1 36.0-48.0 [facility] HospitalFkgdyweJYCKBYOYWS5485-68-96 10:24:00 Test Item Value Reference Range Interpretation Comments MCV (test code = MCV) 83.5 80.0-98.0 [facility] HospitalNqdohakZSNNCSSQXD2893-39-46 10:24:00 Test Item Value Reference Range Interpretation Comments Lymphocytes (test code = Lymphocytes) 13.2 20.0-40.0 [facility] HospitalVtxzarxRTERXHRGVZ5067-66-23 10:24:00 Test Item Value Reference Range Interpretation Comments MCH (test code = MCH) 27.7 pg 27.0-31.0 [facility] HospitalFfdwkzfXBYISVKKRF5662-53-04 10:24:00 Test Item Value Reference Range Interpretation Comments MCHC (test code = MCHC) 33.1 32.0-36.0 [facility] HospitalWgslmpyGLLBWIUDBI8156-64-65 10:24:00 Test Item Value Reference Range Interpretation Comments RDW (test code = RDW) 16.8 11.5-14.5 [place] 633380-12-07 10:24:00 Test Item Value Reference Range Interpretation Comments Platelet (test code = Platelet) 185 133-450 [facility] HospitalQmmtflvNLOSYVVBJQ4320-79-98 10:24:00 Test Item Value Reference Range Interpretation Comments MPV (test code = MPV) 8.4 7.4-10.4 [place] 633380-12-07 10:24:00 Test Item Value Reference Range Interpretation Comments Monocytes (test code = Monocytes) 10.9 2.0-12.0 [place] 633380-12-07 10:24:00 Test Item Value Reference Range Interpretation Comments Eosinophils (test code = 4.6 See_Comment [A utomated message] The Eosinophils) system which ge nerated this result tra nsmitted reference range : <=4.0. The reference r christiano was not used to int erpret this result as normal/abnormal . [facility] HospitalEdkruoxAEGLCBCKNH9695-29-47 10:24:00 Test Item Value Reference Range Interpretation Comments Basophils (test code = 0.7 See_Comment [Aut omated message] The Basophils) system which ge nerated this result tra nsmitted reference range : <=1.0. The reference r christiano was not used to int erpret this result as normal/abnormal . [facility] HospitalNmjnffnTLAGNYUUOZ0623-32-49 10:24:00 Test Item Value Reference Range Interpretation Comments Neutrophils # (test code = Neutrophils 5.3 1.5-8.1 #) [facility] HospitalLtnrgdaRONDJDWBPV3992-20-06 10:24:00 Test Item Value Reference Range Interpretation Comments Lymphocytes # (test code = Lymphocytes 1.0 1.0-5.5 #) [place] 633380-12-07 10:24:00 Test Item Value Reference Range Interpretation Comments Monocytes # (test code 0.8 See_Comment [Aut omated message] The = Monocytes #) system which generated this result tra nsmitted reference range : <=0.8. The reference r christiano was not used to int erpret this result as normal/abnormal . [place] 633380-12-07 10:24:00 Test Item Value Reference Range Interpretation Comments Eosinophils # (test code 0.3 See_Comment [A utomated message] The = Eosinophils #) system whic h generated this result tra nsmitted reference range : <=0.5. The reference r christiano was not used to int erpret this result as normal/abnormal . [facility] HospitalRgntfgrBVEDYEHILS5301-24-37 10:24:00 Test Item Value Reference Range Interpretation Comments Basophils # (test code 0.1 See_Comment [Aut omated message] The = Basophils #) system which generated this result tra nsmitted reference range : <=0.2. The reference r christiano was not used to int erpret this result as normal/abnormal . [facility] HospitalLlpttttRKOLMABXLO8204-72-78 10:24:00 Test Item Value Reference Range Interpretation Comments WBC (test code = WBC) 7.5 3.7-10.4 [facility] HospitalGwmsqtlMMHRAFPMYV6613-11-10 10:24:00 Test Item Value Reference Range Interpretation Comments RBC (test code = RBC) 3.85 4.20-5.40 [facility] HospitalSjynaniFNXAEVRTXG9499-70-69 10:24:00 Test Item Value Reference Range Interpretation Comments Hgb (test code = Hgb) 10.6 12.0-16.0 [facility] HospitalKdqmiwjYABONZHENO1538-54-85 10:24:00 Test Item Value Reference Range Interpretation Comments Hct (test code = Hct) 32.1 36.0-48.0 [facility] HospitalIzjcnvcJWCCHYWABG0114-62-08 10:24:00 Test Item Value Reference Range Interpretation Comments MCV (test code = MCV) 83.5 80.0-98.0 [facility] HospitalFllsodrWOURAZDOIE7618-40-94 10:24:00 Test Item Value Reference Range Interpretation Comments MCH (test code = MCH) 27.7 pg 27.0-31.0 [facility] HospitalDxlyzmbLLDAGOTGRE0646-44-52 10:24:00 Test Item Value Reference Range Interpretation Comments MCHC (test code = MCHC) 33.1 32.0-36.0 [facility] HospitalLmxyvohIAZFSWTWLO6206-50-88 10:24:00 Test Item Value Reference Range Interpretation Comments RDW (test code = RDW) 16.8 11.5-14.5 [facility] HospitalBqcwqyqKGBMVECVKM6910-44-67 10:24:00 Test Item Value Reference Range Interpretation Comments Platelet (test code = Platelet) 185 133-450 [facility] HospitalFgnylraOLDHJNHPTD8156-82-46 10:24:00 Test Item Value Reference Range Interpretation Comments MPV (test code = MPV) 8.4 7.4-10.4 [facility]2020-12-07 10:24:00 Test Item Value Reference Range Interpretation Comments Glucose Lvl (test code = Glucose Lvl) 66 70-99 [facility]2020-12-07 10:24:00 Test Item Value Reference Range Interpretation Comments BUN (test code = BUN) 19 7-22 [place] 454360-12-07 10:24:00 Test Item Value Reference Range Interpretation Comments Creatinine Lvl (test code = Creatinine 1.82 0.50-1.40 Lvl) [facility]2020-12-07 10:24:00 Test Item Value Reference Range Interpretation Comments Sodium Lvl (test code = Sodium Lvl) 139 135-145 [facility]2020-12-07 10:24:00 Test Item Value Reference Range Interpretation Comments Potassium Lvl (test code = Potassium 4.2 3.5-5.1 Lvl) [facility]2020-12-07 10:24:00 Test Item Value Reference Range Interpretation Comments Chloride Lvl (test code = Chloride Lvl) 105 95-109 [facility]2020-12-07 10:24:00 Test Item Value Reference Range Interpretation Comments CO2 (test code = CO2) 28 24-32 [facility]2020-12-07 10:24:00 Test Item Value Reference Range Interpretation Comments Calcium Lvl (test code = Calcium Lvl) 8.2 8.5-10.5 [facility]2020-12-07 10:24:00 Test Item Value Reference Range Interpretation Comments AGAP (test code = AGAP) 10.2 10.0-20.0 [place] 454360-12-07 10:24:00 Test Item Value Reference Range Interpretation Comments eGFR (test code = eGFR) 26 [facility] HospitalDsyvxscYXTLTEDJLU2068-82-03 10:24:00 Test Item Value Reference Range Interpretation Comments Segs (test code = Segs) 70.6 45.0-75.0 [facility] HospitalJxozcyyNZVXNORFGX2734-75-66 10:24:00 Test Item Value Reference Range Interpretation Comments Lymphocytes (test code = Lymphocytes) 13.2 20.0-40.0 [place] 633380-12-07 10:24:00 Test Item Value Reference Range Interpretation Comments Monocytes (test code = Monocytes) 10.9 2.0-12.0 [place] 633380-12-07 10:24:00 Test Item Value Reference Range Interpretation Comments Eosinophils (test code = 4.6 See_Comment [A utomated message] The Eosinophils) system which ge nerated this result tra nsmitted reference range : <=4.0. The reference r christiano was not used to int erpret this result as normal/abnormal . [facility] HospitalGvulgxfDERHIRJANN7510-27-89 10:24:00 Test Item Value Reference Range Interpretation Comments Basophils (test code = 0.7 See_Comment [Aut omated message] The Basophils) system which ge nerated this result tra nsmitted reference range : <=1.0. The reference r christiano was not used to int erpret this result as normal/abnormal . [facility] HospitalGqzknogHRJJKIKJIK9107-84-24 10:24:00 Test Item Value Reference Range Interpretation Comments Neutrophils # (test code = Neutrophils 5.3 1.5-8.1 #) [facility] HospitalCrtutasMXOFXJIXHC2580-44-11 10:24:00 Test Item Value Reference Range Interpretation Comments Lymphocytes # (test code = Lymphocytes 1.0 1.0-5.5 #) [facility] HospitalUqgrduqCDFSVSHOBJ1849-56-70 10:24:00 Test Item Value Reference Range Interpretation Comments Monocytes # (test code 0.8 See_Comment [Aut omated message] The = Monocytes #) system which generated this result tra nsmitted reference range : <=0.8. The reference r christiano was not used to int erpret this result as normal/abnormal . [place] [address]-12-07 10:24:00 Test Item Value Reference Range Interpretation Comments Eosinophils # (test code 0.3 See_Comment [A utomated message] The = Eosinophils #) system whic h generated this result tra nsmitted reference range : <=0.5. The reference r christiano was not used to int erpret this result as normal/abnormal . [facility] HospitalKkuxuohRYCGYNZCGR3538-81-07 10:24:00 Test Item Value Reference Range Interpretation Comments Basophils # (test code 0.1 See_Comment [Aut omated message] The = Basophils #) system which generated this result tra nsmitted reference range : <=0.2. The reference r christiano was not used to int erpret this result as normal/abnormal . [place] 633380-12-07 10:24:00 Test Item Value Reference Range Interpretation Comments WBC (test code = WBC) 7.5 3.7-10.4 [place] 633380-12-07 10:24:00 Test Item Value Reference Range Interpretation Comments RBC (test code = RBC) 3.85 4.20-5.40 [place] 633380-12-07 10:24:00 Test Item Value Reference Range Interpretation Comments Hgb (test code = Hgb) 10.6 12.0-16.0 [place] [address]-12-07 10:24:00 Test Item Value Reference Range Interpretation Comments Hct (test code = Hct) 32.1 36.0-48.0 [place] [address]-12-07 10:24:00 Test Item Value Reference Range Interpretation Comments MCV (test code = MCV) 83.5 80.0-98.0 [place] 633380-12-07 10:24:00 Test Item Value Reference Range Interpretation Comments MCH (test code = MCH) 27.7 pg 27.0-31.0 [facility] HospitalBgfcvezEXKAYAFZXR4230-97-59 10:24:00 Test Item Value Reference Range Interpretation Comments MCHC (test code = MCHC) 33.1 32.0-36.0 [facility] HospitalJssubpnYJIDJWARBX7944-32-06 10:24:00 Test Item Value Reference Range Interpretation Comments RDW (test code = RDW) 16.8 11.5-14.5 [facility] HospitalXyhkmofRGMZSQJLLK9526-66-51 10:24:00 Test Item Value Reference Range Interpretation Comments Platelet (test code = Platelet) 185 133-450 [facility] HospitalIqoskdmOOYSVXNGTW8441-75-34 10:24:00 Test Item Value Reference Range Interpretation Comments MPV (test code = MPV) 8.4 7.4-10.4 [facility]2020-12-07 10:24:00 Test Item Value Reference Range Interpretation Comments Glucose Lvl (test code = Glucose Lvl) 66 70-99 [facility]2020-12-07 10:24:00 Test Item Value Reference Range Interpretation Comments BUN (test code = BUN) 19 7-22 [place] 454360-12-07 10:24:00 Test Item Value Reference Range Interpretation Comments Creatinine Lvl (test code = Creatinine 1.82 0.50-1.40 Lvl) [place] 454360-12-07 10:24:00 Test Item Value Reference Range Interpretation Comments Sodium Lvl (test code = Sodium Lvl) 139 135-145 [place] 454360-12-07 10:24:00 Test Item Value Reference Range Interpretation Comments Potassium Lvl (test code = Potassium 4.2 3.5-5.1 Lvl) [place] 454360-12-07 10:24:00 Test Item Value Reference Range Interpretation Comments Chloride Lvl (test code = Chloride Lvl) 105 95-109 [place] 454360-12-07 10:24:00 Test Item Value Reference Range Interpretation Comments CO2 (test code = CO2) 28 24-32 [place] 454360-12-07 10:24:00 Test Item Value Reference Range Interpretation Comments Calcium Lvl (test code = Calcium Lvl) 8.2 8.5-10.5 [facility]2020-12-07 10:24:00 Test Item Value Reference Range Interpretation Comments AGAP (test code = AGAP) 10.2 10.0-20.0 [place] [address]-12-07 10:24:00 Test Item Value Reference Range Interpretation Comments eGFR (test code = eGFR) 26 [place] [address]-12-07 10:24:00 Test Item Value Reference Range Interpretation Comments Segs (test code = Segs) 70.6 45.0-75.0 [place] 633380-12-07 10:24:00 Test Item Value Reference Range Interpretation Comments Lymphocytes (test code = Lymphocytes) 13.2 20.0-40.0 [place] [address]-12-07 10:24:00 Test Item Value Reference Range Interpretation Comments Monocytes (test code = Monocytes) 10.9 2.0-12.0 [place] [address]-12-07 10:24:00 Test Item Value Reference Range Interpretation Comments Eosinophils (test code = 4.6 See_Comment [A utomated message] The Eosinophils) system which ge nerated this result tra nsmitted reference range : <=4.0. The reference r christiano was not used to int erpret this result as normal/abnormal . [facility] HospitalLdspjcuOUITLFMOLD3872-07-87 10:24:00 Test Item Value Reference Range Interpretation Comments Basophils (test code = 0.7 See_Comment [Aut omated message] The Basophils) system which ge nerated this result tra nsmitted reference range : <=1.0. The reference r christiano was not used to int erpret this result as normal/abnormal . [facility] HospitalZgfpwttMHKKDXWNQF4172-17-13 10:24:00 Test Item Value Reference Range Interpretation Comments Neutrophils # (test code = Neutrophils 5.3 1.5-8.1 #) [facility] HospitalMrgzqbeQQQDAGMFBY0344-94-34 10:24:00 Test Item Value Reference Range Interpretation Comments Lymphocytes # (test code = Lymphocytes 1.0 1.0-5.5 #) [facility] HospitalUomddskYORCZVASXZ3303-33-25 10:24:00 Test Item Value Reference Range Interpretation Comments Monocytes # (test code 0.8 See_Comment [Aut omated message] The = Monocytes #) system which generated this result tra nsmitted reference range : <=0.8. The reference r christiano was not used to int erpret this result as normal/abnormal . [facility] HospitalSzrznzmUQANTRMYBN5865-66-53 10:24:00 Test Item Value Reference Range Interpretation Comments Eosinophils # (test code 0.3 See_Comment [A utomated message] The = Eosinophils #) system whic h generated this result tra nsmitted reference range : <=0.5. The reference r christiano was not used to int erpret this result as normal/abnormal . [facility] HospitalOqnymiqKBOEFQIGVL4365-13-33 10:24:00 Test Item Value Reference Range Interpretation Comments Basophils # (test code 0.1 See_Comment [Aut omated message] The = Basophils #) system which generated this result tra nsmitted reference range : <=0.2. The reference r christiano was not used to int erpret this result as normal/abnormal . [facility] HospitalFysqegjEPYTJEYRTO2041-72-71 10:24:00 Test Item Value Reference Range Interpretation Comments WBC (test code = WBC) 7.5 3.7-10.4 [facility] HospitalYfudjxhISHTPECRLD3582-67-20 10:24:00 Test Item Value Reference Range Interpretation Comments RBC (test code = RBC) 3.85 4.20-5.40 [facility] HospitalXjkiswlNVZVRSLJWC2768-22-55 10:24:00 Test Item Value Reference Range Interpretation Comments Hgb (test code = Hgb) 10.6 12.0-16.0 [place] 633380-12-07 10:24:00 Test Item Value Reference Range Interpretation Comments Hct (test code = Hct) 32.1 36.0-48.0 [facility] HospitalWvejykaUKQWTWIFFV6854-66-39 10:24:00 Test Item Value Reference Range Interpretation Comments MCV (test code = MCV) 83.5 80.0-98.0 [place] [address]-12-07 10:24:00 Test Item Value Reference Range Interpretation Comments MCH (test code = MCH) 27.7 pg 27.0-31.0 [facility] HospitalIgbxxnqDYEIIITOES9847-79-06 10:24:00 Test Item Value Reference Range Interpretation Comments MCHC (test code = MCHC) 33.1 32.0-36.0 [facility] HospitalMarrtjeNIOUABTQFM0292-52-41 10:24:00 Test Item Value Reference Range Interpretation Comments RDW (test code = RDW) 16.8 11.5-14.5 [facility] HospitalMbokoroIWCMREWZPH8533-26-58 10:24:00 Test Item Value Reference Range Interpretation Comments Platelet (test code = Platelet) 185 133-450 [facility] HospitalBajgmhmOEFQBHVRBY7233-80-60 10:24:00 Test Item Value Reference Range Interpretation Comments MPV (test code = MPV) 8.4 7.4-10.4 [facility]2020-12-07 10:24:00 Test Item Value Reference Range Interpretation Comments Glucose Lvl (test code = Glucose Lvl) 66 70-99 [facility]2020-12-07 10:24:00 Test Item Value Reference Range Interpretation Comments BUN (test code = BUN) 19 7-22 [facility]2020-12-07 10:24:00 Test Item Value Reference Range Interpretation Comments Creatinine Lvl (test code = Creatinine 1.82 0.50-1.40 Lvl) [facility]2020-12-07 10:24:00 Test Item Value Reference Range Interpretation Comments Sodium Lvl (test code = Sodium Lvl) 139 135-145 [facility]2020-12-07 10:24:00 Test Item Value Reference Range Interpretation Comments Potassium Lvl (test code = Potassium 4.2 3.5-5.1 Lvl) [facility]2020-12-07 10:24:00 Test Item Value Reference Range Interpretation Comments Chloride Lvl (test code = Chloride Lvl) 105 95-109 [place] 454360-12-07 10:24:00 Test Item Value Reference Range Interpretation Comments CO2 (test code = CO2) 28 24-32 [place] 454360-12-07 10:24:00 Test Item Value Reference Range Interpretation Comments Calcium Lvl (test code = Calcium Lvl) 8.2 8.5-10.5 [facility]2020-12-07 10:24:00 Test Item Value Reference Range Interpretation Comments AGAP (test code = AGAP) 10.2 10.0-20.0 [place] 454360-12-07 10:24:00 Test Item Value Reference Range Interpretation Comments eGFR (test code = eGFR) 26 [facility] HospitalIprgmlwSDPCWFFUIR7273-34-01 10:24:00 Test Item Value Reference Range Interpretation Comments Segs (test code = Segs) 70.6 45.0-75.0 [place] 633380-12-07 10:24:00 Test Item Value Reference Range Interpretation Comments Lymphocytes (test code = Lymphocytes) 13.2 20.0-40.0 [place] 633380-12-07 10:24:00 Test Item Value Reference Range Interpretation Comments Monocytes (test code = Monocytes) 10.9 2.0-12.0 [place] 633380-12-07 10:24:00 Test Item Value Reference Range Interpretation Comments Eosinophils (test code = 4.6 See_Comment [A utomated message] The Eosinophils) system which ge nerated this result tra nsmitted reference range : <=4.0. The reference r christiano was not used to int erpret this result as normal/abnormal . [place] 633380-12-07 10:24:00 Test Item Value Reference Range Interpretation Comments Basophils (test code = 0.7 See_Comment [Aut omated message] The Basophils) system which ge nerated this result tra nsmitted reference range : <=1.0. The reference r christiano was not used to int erpret this result as normal/abnormal . [facility] HospitalYwugtqgEJRGRFZONX3409-39-43 10:24:00 Test Item Value Reference Range Interpretation Comments Neutrophils # (test code = Neutrophils 5.3 1.5-8.1 #) [facility] HospitalEcbrkzaURVFNGQSOY8879-58-74 10:24:00 Test Item Value Reference Range Interpretation Comments Lymphocytes # (test code = Lymphocytes 1.0 1.0-5.5 #) [facility] HospitalUvauqooLRLXLNBOID5301-56-19 10:24:00 Test Item Value Reference Range Interpretation Comments Monocytes # (test code 0.8 See_Comment [Aut omated message] The = Monocytes #) system which generated this result tra nsmitted reference range : <=0.8. The reference r christiano was not used to int erpret this result as normal/abnormal . [facility] HospitalHqewraiKDJGQJPOXB8212-45-72 10:24:00 Test Item Value Reference Range Interpretation Comments Eosinophils # (test code 0.3 See_Comment [A utomated message] The = Eosinophils #) system whic h generated this result tra nsmitted reference range : <=0.5. The reference r christiano was not used to int erpret this result as normal/abnormal . [facility] HospitalEmmfcdjKHONVOMYCK1334-48-75 10:24:00 Test Item Value Reference Range Interpretation Comments Basophils # (test code 0.1 See_Comment [Aut omated message] The = Basophils #) system which generated this result tra nsmitted reference range : <=0.2. The reference r christiano was not used to int erpret this result as normal/abnormal . [facility] HospitalEmciuobYDZWVIUSTY0958-23-90 10:24:00 Test Item Value Reference Range Interpretation Comments WBC (test code = WBC) 7.5 3.7-10.4 [facility] HospitalZsetnuxNANTRAIFAD7963-86-85 10:24:00 Test Item Value Reference Range Interpretation Comments RBC (test code = RBC) 3.85 4.20-5.40 [facility] HospitalPjdmvbsYDSKXPYYDQ9932-60-92 10:24:00 Test Item Value Reference Range Interpretation Comments Hgb (test code = Hgb) 10.6 12.0-16.0 [facility] HospitalJpdkqszOEGBWYAYCO1884-64-53 10:24:00 Test Item Value Reference Range Interpretation Comments Hct (test code = Hct) 32.1 36.0-48.0 [place] 633380-12-07 10:24:00 Test Item Value Reference Range Interpretation Comments MCV (test code = MCV) 83.5 80.0-98.0 [place] [address]-12-07 10:24:00 Test Item Value Reference Range Interpretation Comments MCH (test code = MCH) 27.7 pg 27.0-31.0 [place] [address]-12-07 10:24:00 Test Item Value Reference Range Interpretation Comments MCHC (test code = MCHC) 33.1 32.0-36.0 [place] [address]-12-07 10:24:00 Test Item Value Reference Range Interpretation Comments RDW (test code = RDW) 16.8 11.5-14.5 [place] [address]-12-07 10:24:00 Test Item Value Reference Range Interpretation Comments Platelet (test code = Platelet) 185 133-450 [place] [address]-12-07 10:24:00 Test Item Value Reference Range Interpretation Comments MPV (test code = MPV) 8.4 7.4-10.4 [facility]2020-12-07 10:24:00 Test Item Value Reference Range Interpretation Comments Glucose Lvl (test code = Glucose Lvl) 66 70-99 [facility]2020-12-07 10:24:00 Test Item Value Reference Range Interpretation Comments BUN (test code = BUN) 19 7-22 [facility]2020-12-07 10:24:00 Test Item Value Reference Range Interpretation Comments Creatinine Lvl (test code = Creatinine 1.82 0.50-1.40 Lvl) [facility]2020-12-07 10:24:00 Test Item Value Reference Range Interpretation Comments Sodium Lvl (test code = Sodium Lvl) 139 135-145 [facility]2020-12-07 10:24:00 Test Item Value Reference Range Interpretation Comments Potassium Lvl (test code = Potassium 4.2 3.5-5.1 Lvl) [facility]2020-12-07 10:24:00 Test Item Value Reference Range Interpretation Comments Chloride Lvl (test code = Chloride Lvl) 105 95-109 [place] 454360-12-07 10:24:00 Test Item Value Reference Range Interpretation Comments CO2 (test code = CO2) 24-32 [facility]2020-12-07 10:24:00 Test Item Value Reference Range Interpretation Comments Calcium Lvl (test code = Calcium Lvl) 8.2 8.5-10.5 [facility]2020-12-07 10:24:00 Test Item Value Reference Range Interpretation Comments AGAP (test code = AGAP) 10.2 10.0-20.0 [place] 454360-12-07 10:24:00 Test Item Value Reference Range Interpretation Comments eGFR (test code = eGFR) 26 [facility] HospitalYswispfUZIUDGQQWS5615-43-05 10:24:00 Test Item Value Reference Range Interpretation Comments Segs (test code = Segs) 70.6 45.0-75.0 [place] 633380-12-07 10:24:00 Test Item Value Reference Range Interpretation Comments Lymphocytes (test code = Lymphocytes) 13.2 20.0-40.0 [place] 633380-12-07 10:24:00 Test Item Value Reference Range Interpretation Comments Monocytes (test code = Monocytes) 10.9 2.0-12.0 [place] 633380-12-07 10:24:00 Test Item Value Reference Range Interpretation Comments Eosinophils (test code = 4.6 See_Comment [A utomated message] The Eosinophils) system which ge nerated this result tra nsmitted reference range : <=4.0. The reference r christiano was not used to int erpret this result as normal/abnormal . [facility] HospitalIokondwOYJNKOCQVI6760-22-64 10:24:00 Test Item Value Reference Range Interpretation Comments Basophils (test code = 0.7 See_Comment [Aut omated message] The Basophils) system which ge nerated this result tra nsmitted reference range : <=1.0. The reference r christiano was not used to int erpret this result as normal/abnormal . [facility] HospitalNmcjnvoPLFCIZOMXT6660-43-80 10:24:00 Test Item Value Reference Range Interpretation Comments Neutrophils # (test code = Neutrophils 5.3 1.5-8.1 #) [facility] HospitalCwppnpzPROPGKKHXY6567-24-07 10:24:00 Test Item Value Reference Range Interpretation Comments Lymphocytes # (test code = Lymphocytes 1.0 1.0-5.5 #) [place] 633380-12-07 10:24:00 Test Item Value Reference Range Interpretation Comments Monocytes # (test code 0.8 See_Comment [Aut omated message] The = Monocytes #) system which generated this result tra nsmitted reference range : <=0.8. The reference r christiano was not used to int erpret this result as normal/abnormal . [facility] HospitalWtizpyzHVAEBULDSP6572-09-70 10:24:00 Test Item Value Reference Range Interpretation Comments Eosinophils # (test code 0.3 See_Comment [A utomated message] The = Eosinophils #) system whic h generated this result tra nsmitted reference range : <=0.5. The reference r christiano was not used to int erpret this result as normal/abnormal . [facility] HospitalQsvdsikDFAYKGBLKR2036-24-72 10:24:00 Test Item Value Reference Range Interpretation Comments Basophils # (test code 0.1 See_Comment [Aut omated message] The = Basophils #) system which generated this result tra nsmitted reference range : <=0.2. The reference r christiano was not used to int erpret this result as normal/abnormal . [facility] HospitalCdxszqiLGKBHUKJJW2026-65-13 10:24:00 Test Item Value Reference Range Interpretation Comments WBC (test code = WBC) 7.5 3.7-10.4 [facility] HospitalQwigotjDNHKEHFOAI3065-85-53 10:24:00 Test Item Value Reference Range Interpretation Comments RBC (test code = RBC) 3.85 4.20-5.40 [facility] HospitalAkpxgoaJPNSECXRGK3910-96-72 10:24:00 Test Item Value Reference Range Interpretation Comments Hgb (test code = Hgb) 10.6 12.0-16.0 [facility] HospitalFbrmbtjCIBDVOWTRH6231-16-92 10:24:00 Test Item Value Reference Range Interpretation Comments Hct (test code = Hct) 32.1 36.0-48.0 [facility] HospitalXesmterJFWBNSDSSJ0082-65-02 10:24:00 Test Item Value Reference Range Interpretation Comments MCV (test code = MCV) 83.5 80.0-98.0 [facility] HospitalMgjilyuTKKNTJMEMI9250-98-80 10:24:00 Test Item Value Reference Range Interpretation Comments MCH (test code = MCH) 27.7 pg 27.0-31.0 [facility] HospitalHenfadxBNOAIFSABF5065-76-11 10:24:00 Test Item Value Reference Range Interpretation Comments MCHC (test code = MCHC) 33.1 32.0-36.0 [facility] HospitalNktuwepYCOEKZKRVZ8800-60-02 10:24:00 Test Item Value Reference Range Interpretation Comments RDW (test code = RDW) 16.8 11.5-14.5 [facility] HospitalGazzaalBCERGTZZMJ1971-29-97 10:24:00 Test Item Value Reference Range Interpretation Comments Platelet (test code = Platelet) 185 133-450 [facility] HospitalLkdgryzEZXZDTIRIF4334-74-94 10:24:00 Test Item Value Reference Range Interpretation Comments MPV (test code = MPV) 8.4 7.4-10.4 [facility]2020-12-07 10:24:00 Test Item Value Reference Range Interpretation Comments Glucose Lvl (test code = Glucose Lvl) 66 70-99 [facility]2020-12-07 10:24:00 Test Item Value Reference Range Interpretation Comments BUN (test code = BUN) 19 7-22 [facility]2020-12-07 10:24:00 Test Item Value Reference Range Interpretation Comments Creatinine Lvl (test code = Creatinine 1.82 0.50-1.40 Lvl) [facility]2020-12-07 10:24:00 Test Item Value Reference Range Interpretation Comments Sodium Lvl (test code = Sodium Lvl) 139 135-145 [facility]2020-12-07 10:24:00 Test Item Value Reference Range Interpretation Comments Potassium Lvl (test code = Potassium 4.2 3.5-5.1 Lvl) [facility]2020-12-07 10:24:00 Test Item Value Reference Range Interpretation Comments Chloride Lvl (test code = Chloride Lvl) 105 95-109 [facility]2020-12-07 10:24:00 Test Item Value Reference Range Interpretation Comments CO2 (test code = CO2) 28 24-32 [facility]2020-12-07 10:24:00 Test Item Value Reference Range Interpretation Comments Calcium Lvl (test code = Calcium Lvl) 8.2 8.5-10.5 [facility]2020-12-07 10:24:00 Test Item Value Reference Range Interpretation Comments AGAP (test code = AGAP) 10.2 10.0-20.0 [facility]2020-12-07 10:24:00 Test Item Value Reference Range Interpretation Comments eGFR (test code = eGFR) 26 [facility] HospitalWemraiyKJIBXZUCAZ1847-99-16 10:24:00 Test Item Value Reference Range Interpretation Comments Segs (test code = Segs) 70.6 45.0-75.0 [place] 633380-12-07 10:24:00 Test Item Value Reference Range Interpretation Comments Lymphocytes (test code = Lymphocytes) 13.2 20.0-40.0 [place] 633380-12-07 10:24:00 Test Item Value Reference Range Interpretation Comments Monocytes (test code = Monocytes) 10.9 2.0-12.0 [facility] HospitalRztlhmmPFGALSFJBY0237-44-81 10:24:00 Test Item Value Reference Range Interpretation Comments Eosinophils (test code = 4.6 See_Comment [A utomated message] The Eosinophils) system which ge nerated this result tra nsmitted reference range : <=4.0. The reference r christiano was not used to int erpret this result as normal/abnormal . [facility] HospitalJwvglyhGDOPYUIHDQ7701-04-28 10:24:00 Test Item Value Reference Range Interpretation Comments Basophils (test code = 0.7 See_Comment [Aut omated message] The Basophils) system which ge nerated this result tra nsmitted reference range : <=1.0. The reference r christiano was not used to int erpret this result as normal/abnormal . [facility] HospitalZusllrsAYIUCRQGWG8186-23-61 10:24:00 Test Item Value Reference Range Interpretation Comments Neutrophils # (test code = Neutrophils 5.3 1.5-8.1 #) [facility] HospitalSlmtmjiIRXGMOZTDS0843-33-14 10:24:00 Test Item Value Reference Range Interpretation Comments Lymphocytes # (test code = Lymphocytes 1.0 1.0-5.5 #) [place] 633380-12-07 10:24:00 Test Item Value Reference Range Interpretation Comments Monocytes # (test code 0.8 See_Comment [Aut omated message] The = Monocytes #) system which generated this result tra nsmitted reference range : <=0.8. The reference r christiano was not used to int erpret this result as normal/abnormal . [place] 633380-12-07 10:24:00 Test Item Value Reference Range Interpretation Comments Eosinophils # (test code 0.3 See_Comment [A utomated message] The = Eosinophils #) system whic h generated this result tra nsmitted reference range : <=0.5. The reference r christiano was not used to int erpret this result as normal/abnormal . [facility] HospitalUqybwhiMBFVCQZGCF2688-62-26 10:24:00 Test Item Value Reference Range Interpretation Comments Basophils # (test code 0.1 See_Comment [Aut omated message] The = Basophils #) system which generated this result tra nsmitted reference range : <=0.2. The reference r christiano was not used to int erpret this result as normal/abnormal . [facility] HospitalBqbpxioURZYOHWQVN1358-11-27 10:24:00 Test Item Value Reference Range Interpretation Comments WBC (test code = WBC) 7.5 3.7-10.4 [facility] HospitalJlcogxlURMHTUBFKN1699-71-54 10:24:00 Test Item Value Reference Range Interpretation Comments RBC (test code = RBC) 3.85 4.20-5.40 [facility] HospitalKhmocboEAYUEDLGKC7242-47-60 10:24:00 Test Item Value Reference Range Interpretation Comments Hgb (test code = Hgb) 10.6 12.0-16.0 [facility] HospitalKrnttwhUKHKCGGBOP9270-94-81 10:24:00 Test Item Value Reference Range Interpretation Comments Hct (test code = Hct) 32.1 36.0-48.0 [facility] HospitalEaryjpuKRNKJGOJUU5916-51-50 10:24:00 Test Item Value Reference Range Interpretation Comments MCV (test code = MCV) 83.5 80.0-98.0 [facility] HospitalChwlvmsGRSOXDUPPN5334-65-44 10:24:00 Test Item Value Reference Range Interpretation Comments MCH (test code = MCH) 27.7 pg 27.0-31.0 [facility] HospitalZrvdnyzSEIATIQCYS2242-61-99 10:24:00 Test Item Value Reference Range Interpretation Comments MCHC (test code = MCHC) 33.1 32.0-36.0 [facility] HospitalVbloppwKHXYGPWJLZ1025-07-92 10:24:00 Test Item Value Reference Range Interpretation Comments RDW (test code = RDW) 16.8 11.5-14.5 [facility] HospitalBufjjukWLDKYQKIUN6360-96-78 10:24:00 Test Item Value Reference Range Interpretation Comments Platelet (test code = Platelet) 185 133-450 [facility]2020-12-07 10:24:00 Test Item Value Reference Range Interpretation Comments Glucose Lvl (test code = Glucose Lvl) 66 70-99 [place] 454360-12-07 10:24:00 Test Item Value Reference Range Interpretation Comments BUN (test code = BUN) 19 7-22 [place] 454360-12-07 10:24:00 Test Item Value Reference Range Interpretation Comments Creatinine Lvl (test code = Creatinine 1.82 0.50-1.40 Lvl) [facility]2020-12-07 10:24:00 Test Item Value Reference Range Interpretation Comments Sodium Lvl (test code = Sodium Lvl) 139 135-145 [place] 454360-12-07 10:24:00 Test Item Value Reference Range Interpretation Comments Potassium Lvl (test code = Potassium 4.2 3.5-5.1 Lvl) [place] 454360-12-07 10:24:00 Test Item Value Reference Range Interpretation Comments Chloride Lvl (test code = Chloride Lvl) 105 95-109 [facility] HospitalAsrladuQLMAUUTYMW8978-62-09 10:24:00 Test Item Value Reference Range Interpretation Comments MPV (test code = MPV) 8.4 7.4-10.4 [place] 454360-12-07 10:24:00 Test Item Value Reference Range Interpretation Comments CO2 (test code = CO2) 28 24-32 [place] 454360-12-07 10:24:00 Test Item Value Reference Range Interpretation Comments Calcium Lvl (test code = Calcium Lvl) 8.2 8.5-10.5 [place] 454360-12-07 10:24:00 Test Item Value Reference Range Interpretation Comments AGAP (test code = AGAP) 10.2 10.0-20.0 [place] 454360-12-07 10:24:00 Test Item Value Reference Range Interpretation Comments eGFR (test code = eGFR) 26 [place] 633380-12-07 10:24:00 Test Item Value Reference Range Interpretation Comments Segs (test code = Segs) 70.6 45.0-75.0 [place] 633380-12-07 10:24:00 Test Item Value Reference Range Interpretation Comments Lymphocytes (test code = Lymphocytes) 13.2 20.0-40.0 [facility] HospitalSzfbltfXGWFXLGOOA1742-81-49 10:24:00 Test Item Value Reference Range Interpretation Comments Monocytes (test code = Monocytes) 10.9 2.0-12.0 [facility] HospitalGmfrysiRWTIXQRZHF9105-35-58 10:24:00 Test Item Value Reference Range Interpretation Comments Eosinophils (test code = 4.6 See_Comment [A utomated message] The Eosinophils) system which ge nerated this result tra nsmitted reference range : <=4.0. The reference r christiano was not used to int erpret this result as normal/abnormal . [facility] HospitalKyeqsyjDYECHDHDVY7311-12-92 10:24:00 Test Item Value Reference Range Interpretation Comments Basophils (test code = 0.7 See_Comment [Aut omated message] The Basophils) system which ge nerated this result tra nsmitted reference range : <=1.0. The reference r christiano was not used to int erpret this result as normal/abnormal . [facility] HospitalCjwrtmrAAXOIVQEKZ6026-45-38 10:24:00 Test Item Value Reference Range Interpretation Comments Neutrophils # (test code = Neutrophils 5.3 1.5-8.1 #) [facility] HospitalFgsyqvgFOSMPTAJTA6993-09-42 10:24:00 Test Item Value Reference Range Interpretation Comments Lymphocytes # (test code = Lymphocytes 1.0 1.0-5.5 #) [facility] HospitalVjebfdcJTSGHVUCKW1351-18-23 10:24:00 Test Item Value Reference Range Interpretation Comments Monocytes # (test code 0.8 See_Comment [Aut omated message] The = Monocytes #) system which generated this result tra nsmitted reference range : <=0.8. The reference r christiano was not used to int erpret this result as normal/abnormal . [facility] HospitalRvpywimHEASUCCKFO5234-23-15 10:24:00 Test Item Value Reference Range Interpretation Comments Eosinophils # (test code 0.3 See_Comment [A utomated message] The = Eosinophils #) system whic h generated this result tra nsmitted reference range : <=0.5. The reference r christiano was not used to int erpret this result as normal/abnormal . [facility] HospitalCajcwbnFGDWAZZUAG5529-82-78 10:24:00 Test Item Value Reference Range Interpretation Comments Basophils # (test code 0.1 See_Comment [Aut omated message] The = Basophils #) system which generated this result tra nsmitted reference range : <=0.2. The reference r christiano was not used to int erpret this result as normal/abnormal . [facility] HospitalXzyvpihHPGPRIGOXE5304-40-75 10:24:00 Test Item Value Reference Range Interpretation Comments WBC (test code = WBC) 7.5 3.7-10.4 [facility] HospitalXksgmrbUPJEWXHSUA6600-06-96 10:24:00 Test Item Value Reference Range Interpretation Comments RBC (test code = RBC) 3.85 4.20-5.40 [facility] HospitalKelfqxaRAXDFYMIZY1650-11-36 10:24:00 Test Item Value Reference Range Interpretation Comments Hgb (test code = Hgb) 10.6 12.0-16.0 [facility] HospitalPmdukfyOBJLVYVGWY9593-66-55 10:24:00 Test Item Value Reference Range Interpretation Comments Hct (test code = Hct) 32.1 36.0-48.0 [facility] HospitalUpsjdbpPGDXPIHUQV4779-66-90 10:24:00 Test Item Value Reference Range Interpretation Comments MCV (test code = MCV) 83.5 80.0-98.0 [facility] HospitalGdjrrcgUVQWZSBXHX4622-12-91 10:24:00 Test Item Value Reference Range Interpretation Comments MCH (test code = MCH) 27.7 pg 27.0-31.0 [facility] HospitalHbaktnxVPHPKSNKUJ3027-05-70 10:24:00 Test Item Value Reference Range Interpretation Comments MCHC (test code = MCHC) 33.1 32.0-36.0 [facility] HospitalXsfcbgeSVJKDRKYHX4149-75-88 10:24:00 Test Item Value Reference Range Interpretation Comments RDW (test code = RDW) 16.8 11.5-14.5 [facility] HospitalQneibkbLUNFOEQWEE4809-22-29 10:24:00 Test Item Value Reference Range Interpretation Comments Platelet (test code = Platelet) 185 133-450 [facility] HospitalFfdnzcrMNKVNJCFWZ1506-62-86 10:24:00 Test Item Value Reference Range Interpretation Comments MPV (test code = MPV) 8.4 7.4-10.4 [facility] [employer] [facility] [id number] 10:24:00 Test Item Value Reference Range Interpretation Comments Glucose Lvl (test code = Glucose Lvl) 66 70-99 [facility] [employer] [id number] 10:24:00 Test Item Value Reference Range Interpretation Comments BUN (test code = BUN) 19 7-22 [facility]2020-12-07 10:24:00 Test Item Value Reference Range Interpretation Comments Creatinine Lvl (test code = Creatinine 1.82 0.50-1.40 Lvl) [facility]2020-12-07 10:24:00 Test Item Value Reference Range Interpretation Comments Sodium Lvl (test code = Sodium Lvl) 139 135-145 [place] 454360-12-07 10:24:00 Test Item Value Reference Range Interpretation Comments Potassium Lvl (test code = Potassium 4.2 3.5-5.1 Lvl) [place] 454360-12-07 10:24:00 Test Item Value Reference Range Interpretation Comments Chloride Lvl (test code = Chloride Lvl) 105 95-109 [place] 454360-12-07 10:24:00 Test Item Value Reference Range Interpretation Comments CO2 (test code = CO2) 28 24-32 [facility]2020-12-07 10:24:00 Test Item Value Reference Range Interpretation Comments Calcium Lvl (test code = Calcium Lvl) 8.2 8.5-10.5 [facility]2020-12-07 10:24:00 Test Item Value Reference Range Interpretation Comments AGAP (test code = AGAP) 10.2 10.0-20.0 [facility]2020-12-07 10:24:00 Test Item Value Reference Range Interpretation Comments eGFR (test code = eGFR) 26 [facility] HospitalVdsuxkcNMZISSCDKV3482-17-41 10:24:00 Test Item Value Reference Range Interpretation Comments Segs (test code = Segs) 70.6 45.0-75.0 [place] 633380-12-07 10:24:00 Test Item Value Reference Range Interpretation Comments Lymphocytes (test code = Lymphocytes) 13.2 20.0-40.0 [place] [address]-12-07 10:24:00 Test Item Value Reference Range Interpretation Comments Monocytes (test code = Monocytes) 10.9 2.0-12.0 [place] [address]-12-07 10:24:00 Test Item Value Reference Range Interpretation Comments Eosinophils (test code = 4.6 See_Comment [A utomated message] The Eosinophils) system which ge nerated this result tra nsmitted reference range : <=4.0. The reference r christiano was not used to int erpret this result as normal/abnormal . [facility] HospitalHvbrlktPZDGGBIIOM4389-51-53 10:24:00 Test Item Value Reference Range Interpretation Comments Basophils (test code = 0.7 See_Comment [Aut omated message] The Basophils) system which ge nerated this result tra nsmitted reference range : <=1.0. The reference r christiano was not used to int erpret this result as normal/abnormal . [facility] HospitalUejlnnqBGAOQDZUBV8603-86-21 10:24:00 Test Item Value Reference Range Interpretation Comments Neutrophils # (test code = Neutrophils 5.3 1.5-8.1 #) [facility] HospitalCzqgsheWHVBTXYFIV8608-12-82 10:24:00 Test Item Value Reference Range Interpretation Comments Lymphocytes # (test code = Lymphocytes 1.0 1.0-5.5 #) [facility] HospitalYmfzumnORZBFGSCYQ2388-09-58 10:24:00 Test Item Value Reference Range Interpretation Comments Monocytes # (test code 0.8 See_Comment [Aut omated message] The = Monocytes #) system which generated this result tra nsmitted reference range : <=0.8. The reference r christiano was not used to int erpret this result as normal/abnormal . [facility] HospitalBstmgziYCJMFBLTLY5718-31-61 10:24:00 Test Item Value Reference Range Interpretation Comments Eosinophils # (test code 0.3 See_Comment [A utomated message] The = Eosinophils #) system [facility] generated this result tra nsmitted reference range : <=0.5. The reference r christiano was not used to int erpret this result as normal/abnormal . [facility] HospitalNwetnxdERSWKQIAYP8415-04-62 10:24:00 Test Item Value Reference Range Interpretation Comments Basophils # (test code 0.1 See_Comment [Aut omated message] The = Basophils #) system which generated this result tra nsmitted reference range : <=0.2. The reference r christiano was not used to int erpret this result as normal/abnormal . [facility] HospitalMhyanevPNYRCWXFJS5932-17-81 10:24:00 Test Item Value Reference Range Interpretation Comments WBC (test code = WBC) 7.5 3.7-10.4 [facility] HospitalGuaxspeYYRYNCAXVH1019-58-73 10:24:00 Test Item Value Reference Range Interpretation Comments RBC (test code = RBC) 3.85 4.20-5.40 [facility] HospitalUjdkcsmAYOWYKVUJT1451-34-67 10:24:00 Test Item Value Reference Range Interpretation Comments Hgb (test code = Hgb) 10.6 12.0-16.0 [facility] HospitalFnzofeeVKVZEEEKTA4933-90-11 10:24:00 Test Item Value Reference Range Interpretation Comments Hct (test code = Hct) 32.1 36.0-48.0 [facility] HospitalIcqxhzjQIRDFKZUUC2569-82-72 10:24:00 Test Item Value Reference Range Interpretation Comments MCV (test code = MCV) 83.5 80.0-98.0 [facility] HospitalJbosepwIPAQDFMGCU9818-58-00 10:24:00 Test Item Value Reference Range Interpretation Comments MCH (test code = MCH) 27.7 pg 27.0-31.0 [facility] HospitalUlotqxlHSZHXMXGAB5851-11-86 10:24:00 Test Item Value Reference Range Interpretation Comments MCHC (test code = MCHC) 33.1 32.0-36.0 [facility] HospitalJepmwesSRXDPOCDOV7991-10-13 10:24:00 Test Item Value Reference Range Interpretation Comments RDW (test code = RDW) 16.8 11.5-14.5 [facility] HospitalHrmjxeiVCLNKXMVRY6586-15-31 10:24:00 Test Item Value Reference Range Interpretation Comments Platelet (test code = Platelet) 185 133-450 [facility] HospitalVxquisiJFZLEBQUMN2415-93-59 10:24:00 Test Item Value Reference Range Interpretation Comments MPV (test code = MPV) 8.4 7.4-10.4 [facility]2020-12-07 10:24:00 Test Item Value Reference Range Interpretation Comments Glucose Lvl (test code = Glucose Lvl) 66 70-99 [facility]2020-12-07 10:24:00 Test Item Value Reference Range Interpretation Comments BUN (test code = BUN) 19 7-22 [facility]2020-12-07 10:24:00 Test Item Value Reference Range Interpretation Comments Creatinine Lvl (test code = Creatinine 1.82 0.50-1.40 Lvl) [facility]2020-12-07 10:24:00 Test Item Value Reference Range Interpretation Comments Sodium Lvl (test code = Sodium Lvl) 139 135-145 [facility]2020-12-07 10:24:00 Test Item Value Reference Range Interpretation Comments Potassium Lvl (test code = Potassium 4.2 3.5-5.1 Lvl) [facility]2020-12-07 10:24:00 Test Item Value Reference Range Interpretation Comments Chloride Lvl (test code = Chloride Lvl) 105 95-109 [place] 454360-12-07 10:24:00 Test Item Value Reference Range Interpretation Comments CO2 (test code = CO2) 28 24-32 [place] 454360-12-07 10:24:00 Test Item Value Reference Range Interpretation Comments Calcium Lvl (test code = Calcium Lvl) 8.2 8.5-10.5 [place] 454360-12-07 10:24:00 Test Item Value Reference Range Interpretation Comments AGAP (test code = AGAP) 10.2 10.0-20.0 [place] 454360-12-07 10:24:00 Test Item Value Reference Range Interpretation Comments eGFR (test code = eGFR) 26 [facility] HospitalMcgovwpHSNBYYESXX2875-83-81 10:24:00 Test Item Value Reference Range Interpretation Comments Segs (test code = Segs) 70.6 45.0-75.0 [place] 633380-12-07 10:24:00 Test Item Value Reference Range Interpretation Comments Lymphocytes (test code = Lymphocytes) 13.2 20.0-40.0 [place] [address]-12-07 10:24:00 Test Item Value Reference Range Interpretation Comments Monocytes (test code = Monocytes) 10.9 2.0-12.0 [place] [address]-12-07 10:24:00 Test Item Value Reference Range Interpretation Comments Eosinophils (test code = 4.6 See_Comment [A utomated message] The Eosinophils) system which ge nerated this result tra nsmitted reference range : <=4.0. The reference r christiano was not used to int erpret this result as normal/abnormal . [place] 633380-12-07 10:24:00 Test Item Value Reference Range Interpretation Comments Basophils (test code = 0.7 See_Comment [Aut omated message] The Basophils) system which ge nerated this result tra nsmitted reference range : <=1.0. The reference r christiano was not used to int erpret this result as normal/abnormal . [facility] HospitalSxtolguRXRUSNXIWF4341-93-53 10:24:00 Test Item Value Reference Range Interpretation Comments Neutrophils # (test code = Neutrophils 5.3 1.5-8.1 #) [facility] HospitalMlhehudYNCWOEEBBD6380-38-57 10:24:00 Test Item Value Reference Range Interpretation Comments Lymphocytes # (test code = Lymphocytes 1.0 1.0-5.5 #) [facility] HospitalVidtvvmBHZJONLEHL3334-89-79 10:24:00 Test Item Value Reference Range Interpretation Comments Monocytes # (test code 0.8 See_Comment [Aut omated message] The = Monocytes #) system which generated this result tra nsmitted reference range : <=0.8. The reference r christiano was not used to int erpret this result as normal/abnormal . [facility] HospitalBngfesxERYZSWKAVH6679-37-06 10:24:00 Test Item Value Reference Range Interpretation Comments Eosinophils # (test code 0.3 See_Comment [A utomated message] The = Eosinophils #) system whic h generated this result tra nsmitted reference range : <=0.5. The reference r christiano was not used to int erpret this result as normal/abnormal . [facility] HospitalWxbdzhlSAWPUJAIVK2184-34-48 10:24:00 Test Item Value Reference Range Interpretation Comments Basophils # (test code 0.1 See_Comment [Aut omated message] The = Basophils #) system which generated this result tra nsmitted reference range : <=0.2. The reference r christiano was not used to int erpret this result as normal/abnormal . [facility] HospitalXbnyiuyMQOTQSMWJR5316-08-30 10:24:00 Test Item Value Reference Range Interpretation Comments WBC (test code = WBC) 7.5 3.7-10.4 [facility] HospitalZuodqwuGWHGDIOTHU7331-39-18 10:24:00 Test Item Value Reference Range Interpretation Comments RBC (test code = RBC) 3.85 4.20-5.40 [place] 633380-12-07 10:24:00 Test Item Value Reference Range Interpretation Comments Hgb (test code = Hgb) 10.6 12.0-16.0 [place] 633380-12-07 10:24:00 Test Item Value Reference Range Interpretation Comments Hct (test code = Hct) 32.1 36.0-48.0 [place] [address]-12-07 10:24:00 Test Item Value Reference Range Interpretation Comments MCV (test code = MCV) 83.5 80.0-98.0 [place] [address]-12-07 10:24:00 Test Item Value Reference Range Interpretation Comments MCH (test code = MCH) 27.7 pg 27.0-31.0 [place] [address]-12-07 10:24:00 Test Item Value Reference Range Interpretation Comments MCHC (test code = MCHC) 33.1 32.0-36.0 [place] [address]-12-07 10:24:00 Test Item Value Reference Range Interpretation Comments RDW (test code = RDW) 16.8 11.5-14.5 [place] [address]-12-07 10:24:00 Test Item Value Reference Range Interpretation Comments Platelet (test code = Platelet) 185 133-450 [facility] HospitalAwaahaeLCMMOHNSGM2409-03-26 10:24:00 Test Item Value Reference Range Interpretation Comments MPV (test code = MPV) 8.4 7.4-10.4 [facility]2020-12-07 10:24:00 Test Item Value Reference Range Interpretation Comments Glucose Lvl (test code = Glucose Lvl) 66 70-99 [facility]2020-12-07 10:24:00 Test Item Value Reference Range Interpretation Comments BUN (test code = BUN) 19 7-22 [place] 454360-12-07 10:24:00 Test Item Value Reference Range Interpretation Comments Creatinine Lvl (test code = Creatinine 1.82 0.50-1.40 Lvl) [place] 454360-12-07 10:24:00 Test Item Value Reference Range Interpretation Comments Sodium Lvl (test code = Sodium Lvl) 139 135-145 [facility]2020-12-07 10:24:00 Test Item Value Reference Range Interpretation Comments Potassium Lvl (test code = Potassium 4.2 3.5-5.1 Lvl) [facility]2020-12-07 10:24:00 Test Item Value Reference Range Interpretation Comments Chloride Lvl (test code = Chloride Lvl) 105 95-109 [place] [address]-12-07 10:24:00 Test Item Value Reference Range Interpretation Comments CO2 (test code = CO2) 28 24-32 [place] 454360-12-07 10:24:00 Test Item Value Reference Range Interpretation Comments Calcium Lvl (test code = Calcium Lvl) 8.2 8.5-10.5 [place] 454360-12-07 10:24:00 Test Item Value Reference Range Interpretation Comments AGAP (test code = AGAP) 10.2 10.0-20.0 [place] 454360-12-07 10:24:00 Test Item Value Reference Range Interpretation Comments eGFR (test code = eGFR) 26 [place] 633380-12-07 10:24:00 Test Item Value Reference Range Interpretation Comments Segs (test code = Segs) 70.6 45.0-75.0 [place] 633380-12-07 10:24:00 Test Item Value Reference Range Interpretation Comments Lymphocytes (test code = Lymphocytes) 13.2 20.0-40.0 [place] 633380-12-07 10:24:00 Test Item Value Reference Range Interpretation Comments Monocytes (test code = Monocytes) 10.9 2.0-12.0 [place] 633380-12-07 10:24:00 Test Item Value Reference Range Interpretation Comments Eosinophils (test code = 4.6 See_Comment [A utomated message] The Eosinophils) system which ge nerated this result tra nsmitted reference range : <=4.0. The reference r christiano was not used to int erpret this result as normal/abnormal . [place] 633380-12-07 10:24:00 Test Item Value Reference Range Interpretation Comments Basophils (test code = 0.7 See_Comment [Aut omated message] The Basophils) system which ge nerated this result tra nsmitted reference range : <=1.0. The reference r christiano was not used to int erpret this result as normal/abnormal . [place] 633380-12-07 10:24:00 Test Item Value Reference Range Interpretation Comments Neutrophils # (test code = Neutrophils 5.3 1.5-8.1 #) [place] 633380-12-07 10:24:00 Test Item Value Reference Range Interpretation Comments Lymphocytes # (test code = Lymphocytes 1.0 1.0-5.5 #) [facility] HospitalRbhuhdsTFWNOPXEEQ5470-22-19 10:24:00 Test Item Value Reference Range Interpretation Comments Monocytes # (test code 0.8 See_Comment [Aut omated message] The = Monocytes #) system which generated this result tra nsmitted reference range : <=0.8. The reference r christiano was not used to int erpret this result as normal/abnormal . [facility] HospitalArwsgiiVFFXQTSOVA4647-81-74 10:24:00 Test Item Value Reference Range Interpretation Comments Eosinophils # (test code 0.3 See_Comment [A utomated message] The = Eosinophils #) system whic h generated this result tra nsmitted reference range : <=0.5. The reference r christiano was not used to int erpret this result as normal/abnormal . [facility] HospitalNynczjsBCGAIBMJFW2793-21-34 10:24:00 Test Item Value Reference Range Interpretation Comments Basophils # (test code 0.1 See_Comment [Aut omated message] The = Basophils #) system which generated this result tra nsmitted reference range : <=0.2. The reference r christiano was not used to int erpret this result as normal/abnormal . [facility] HospitalKnhzzmgIHVRUNVIRX7877-15-05 10:24:00 Test Item Value Reference Range Interpretation Comments WBC (test code = WBC) 7.5 3.7-10.4 [facility] HospitalWssskztAIRBWTDPYM2324-87-69 10:24:00 Test Item Value Reference Range Interpretation Comments RBC (test code = RBC) 3.85 4.20-5.40 [place] 633380-12-07 10:24:00 Test Item Value Reference Range Interpretation Comments Hgb (test code = Hgb) 10.6 12.0-16.0 [place] 633380-12-07 10:24:00 Test Item Value Reference Range Interpretation Comments Hct (test code = Hct) 32.1 36.0-48.0 [place] 633380-12-07 10:24:00 Test Item Value Reference Range Interpretation Comments MCV (test code = MCV) 83.5 80.0-98.0 [place] 633380-12-07 10:24:00 Test Item Value Reference Range Interpretation Comments MCH (test code = MCH) 27.7 pg 27.0-31.0 [place] [address]-12-07 10:24:00 Test Item Value Reference Range Interpretation Comments MCHC (test code = MCHC) 33.1 32.0-36.0 [place] 633380-12-07 10:24:00 Test Item Value Reference Range Interpretation Comments RDW (test code = RDW) 16.8 11.5-14.5 [place] [address]-12-07 10:24:00 Test Item Value Reference Range Interpretation Comments Platelet (test code = Platelet) 185 133-450 [facility] HospitalYpfyiteJJAFLJOPYZ5769-35-75 10:24:00 Test Item Value Reference Range Interpretation Comments MPV (test code = MPV) 8.4 7.4-10.4 [facility]2020-12-07 10:24:00 Test Item Value Reference Range Interpretation Comments Glucose Lvl (test code = Glucose Lvl) 66 70-99 [facility]2020-12-07 10:24:00 Test Item Value Reference Range Interpretation Comments BUN (test code = BUN) 19 7-22 [facility]2020-12-07 10:24:00 Test Item Value Reference Range Interpretation Comments Creatinine Lvl (test code = Creatinine 1.82 0.50-1.40 Lvl) [facility]2020-12-07 10:24:00 Test Item Value Reference Range Interpretation Comments Sodium Lvl (test code = Sodium Lvl) 139 135-145 [facility]2020-12-07 10:24:00 Test Item Value Reference Range Interpretation Comments Potassium Lvl (test code = Potassium 4.2 3.5-5.1 Lvl) [facility]2020-12-07 10:24:00 Test Item Value Reference Range Interpretation Comments Chloride Lvl (test code = Chloride Lvl) 105 95-109 [place] 454360-12-07 10:24:00 Test Item Value Reference Range Interpretation Comments CO2 (test code = CO2) 28 24-32 [facility]2020-12-07 10:24:00 Test Item Value Reference Range Interpretation Comments Calcium Lvl (test code = Calcium Lvl) 8.2 8.5-10.5 [facility]2020-12-07 10:24:00 Test Item Value Reference Range Interpretation Comments AGAP (test code = AGAP) 10.2 10.0-20.0 [facility]2020-12-07 10:24:00 Test Item Value Reference Range Interpretation Comments eGFR (test code = eGFR) 26 [facility] HospitalMmivywnDEANHZRKXM4431-94-95 10:24:00 Test Item Value Reference Range Interpretation Comments Segs (test code = Segs) 70.6 45.0-75.0 [facility] HospitalMhpahywIKGLWPKOWW2251-86-19 10:24:00 Test Item Value Reference Range Interpretation Comments Lymphocytes (test code = Lymphocytes) 13.2 20.0-40.0 [facility] HospitalMvifvigURGAVNLPEC3191-98-63 10:24:00 Test Item Value Reference Range Interpretation Comments Monocytes (test code = Monocytes) 10.9 2.0-12.0 [facility] HospitalAbhazmvMBMKOJXHUS0774-30-17 10:24:00 Test Item Value Reference Range Interpretation Comments Eosinophils (test code = 4.6 See_Comment [A utomated message] The Eosinophils) system which ge nerated this result tra nsmitted reference range : <=4.0. The reference r christiano was not used to int erpret this result as normal/abnormal . [facility] HospitalCuujmwpYRMWMLVNJR7518-62-67 10:24:00 Test Item Value Reference Range Interpretation Comments Basophils (test code = 0.7 See_Comment [Aut omated message] The Basophils) system which ge nerated this result tra nsmitted reference range : <=1.0. The reference r christiano was not used to int erpret this result as normal/abnormal . [facility] HospitalOegnuacOIPUXORDWX6115-91-10 10:24:00 Test Item Value Reference Range Interpretation Comments Neutrophils # (test code = Neutrophils 5.3 1.5-8.1 #) [facility] HospitalHytshuzMNPDNHVYSQ7971-47-29 10:24:00 Test Item Value Reference Range Interpretation Comments Lymphocytes # (test code = Lymphocytes 1.0 1.0-5.5 #) [facility] HospitalKfsaeivVSXYIYZAFD8186-43-35 10:24:00 Test Item Value Reference Range Interpretation Comments Monocytes # (test code 0.8 See_Comment [Aut omated message] The = Monocytes #) system which generated this result tra nsmitted reference range : <=0.8. The reference r christiano was not used to int erpret this result as normal/abnormal . [facility] HospitalGqidcfhCRIOEGVSHJ9039-27-11 10:24:00 Test Item Value Reference Range Interpretation Comments Eosinophils # (test code 0.3 See_Comment [A utomated message] The = Eosinophils #) system whic h generated this result tra nsmitted reference range : <=0.5. The reference r christiano was not used to int erpret this result as normal/abnormal . [facility] HospitalTpioceyCGGXNOGCTF7613-28-39 10:24:00 Test Item Value Reference Range Interpretation Comments Basophils # (test code 0.1 See_Comment [Aut omated message] The = Basophils #) system which generated this result tra nsmitted reference range : <=0.2. The reference r christiano was not used to int erpret this result as normal/abnormal . [facility] HospitalOwbzlybYMRZAMJWKR2608-75-25 10:24:00 Test Item Value Reference Range Interpretation Comments WBC (test code = WBC) 7.5 3.7-10.4 [facility] HospitalIhixymbUITCUULANB0456-82-82 10:24:00 Test Item Value Reference Range Interpretation Comments RBC (test code = RBC) 3.85 4.20-5.40 [facility] HospitalYbbuvpnMJDFZIFPLP5815-02-48 10:24:00 Test Item Value Reference Range Interpretation Comments Hgb (test code = Hgb) 10.6 12.0-16.0 [facility] HospitalQpdbammPZMJYWWUNH4132-50-20 10:24:00 Test Item Value Reference Range Interpretation Comments Hct (test code = Hct) 32.1 36.0-48.0 [facility] HospitalXwibtxjFMYLSEMCLS2715-02-50 10:24:00 Test Item Value Reference Range Interpretation Comments MCV (test code = MCV) 83.5 80.0-98.0 [facility] HospitalJwefjnlIXJPLLJLCY0776-83-28 10:24:00 Test Item Value Reference Range Interpretation Comments MCH (test code = MCH) 27.7 pg 27.0-31.0 [facility] HospitalHuxkofzSJVJETNFZI5747-10-34 10:24:00 Test Item Value Reference Range Interpretation Comments MCHC (test code = MCHC) 33.1 32.0-36.0 [facility] HospitalRtjudwjFFYIXOEZFE3499-58-78 10:24:00 Test Item Value Reference Range Interpretation Comments RDW (test code = RDW) 16.8 11.5-14.5 [facility] HospitalXxqubxnUAXJRJSEGV1986-00-81 10:24:00 Test Item Value Reference Range Interpretation Comments Platelet (test code = Platelet) 185 133-450 [facility] HospitalRxlwmvqXQENCSDXGZ3237-64-79 10:24:00 Test Item Value Reference Range Interpretation Comments MPV (test code = MPV) 8.4 7.4-10.4 [facility]2020-12-07 10:24:00 Test Item Value Reference Range Interpretation Comments Glucose Lvl (test code = Glucose Lvl) 66 70-99 [facility]2020-12-07 10:24:00 Test Item Value Reference Range Interpretation Comments BUN (test code = BUN) 19 7-22 [facility]2020-12-07 10:24:00 Test Item Value Reference Range Interpretation Comments Creatinine Lvl (test code = Creatinine 1.82 0.50-1.40 Lvl) [facility]2020-12-07 10:24:00 Test Item Value Reference Range Interpretation Comments Sodium Lvl (test code = Sodium Lvl) 139 135-145 [facility]2020-12-07 10:24:00 Test Item Value Reference Range Interpretation Comments Potassium Lvl (test code = Potassium 4.2 3.5-5.1 Lvl) [facility]2020-12-07 10:24:00 Test Item Value Reference Range Interpretation Comments Chloride Lvl (test code = Chloride Lvl) 105 95-109 [facility]2020-12-07 10:24:00 Test Item Value Reference Range Interpretation Comments CO2 (test code = CO2) 28 24-32 [facility]2020-12-07 10:24:00 Test Item Value Reference Range Interpretation Comments Calcium Lvl (test code = Calcium Lvl) 8.2 8.5-10.5 [facility]2020-12-07 10:24:00 Test Item Value Reference Range Interpretation Comments AGAP (test code = AGAP) 10.2 10.0-20.0 [facility]2020-12-07 10:24:00 Test Item Value Reference Range Interpretation Comments eGFR (test code = eGFR) 26 [facility] HospitalImunnhhPZDXAKTRUO6805-70-15 10:24:00 Test Item Value Reference Range Interpretation Comments Segs (test code = Segs) 70.6 45.0-75.0 [place] 633380-12-07 10:24:00 Test Item Value Reference Range Interpretation Comments Lymphocytes (test code = Lymphocytes) 13.2 20.0-40.0 [facility] HospitalVcfsitmPDYGPSONTI6754-68-38 10:24:00 Test Item Value Reference Range Interpretation Comments Monocytes (test code = Monocytes) 10.9 2.0-12.0 [facility] HospitalEgxzvjyDEZSIOXINH3276-67-42 10:24:00 Test Item Value Reference Range Interpretation Comments Eosinophils (test code = 4.6 See_Comment [A utomated message] The Eosinophils) system which ge nerated this result tra nsmitted reference range : <=4.0. The reference r christiano was not used to int erpret this result as normal/abnormal . [facility] HospitalBnkskajEOBMDZNTNC4822-61-41 10:24:00 Test Item Value Reference Range Interpretation Comments Basophils (test code = 0.7 See_Comment [Aut omated message] The Basophils) system which ge nerated this result tra nsmitted reference range : <=1.0. The reference r christiano was not used to int erpret this result as normal/abnormal . [facility] HospitalWtgqqddBLJGOXJPDU0719-40-55 10:24:00 Test Item Value Reference Range Interpretation Comments Neutrophils # (test code = Neutrophils 5.3 1.5-8.1 #) [facility] HospitalKauhschAVQRUXJEXB9618-22-99 10:24:00 Test Item Value Reference Range Interpretation Comments Lymphocytes # (test code = Lymphocytes 1.0 1.0-5.5 #) [facility] HospitalXjesrfcRVPLLJZFSL9499-83-62 10:24:00 Test Item Value Reference Range Interpretation Comments Monocytes # (test code 0.8 See_Comment [Aut omated message] The = Monocytes #) system which generated this result tra nsmitted reference range : <=0.8. The reference r christiano was not used to int erpret this result as normal/abnormal . [facility] HospitalSozieidSSNLUYDKSE7559-49-51 10:24:00 Test Item Value Reference Range Interpretation Comments Eosinophils # (test code 0.3 See_Comment [A utomated message] The = Eosinophils #) system whic h generated this result tra nsmitted reference range : <=0.5. The reference r christiano was not used to int erpret this result as normal/abnormal . [facility] HospitalEyvqfaoDPVSYYAQYR0511-99-82 10:24:00 Test Item Value Reference Range Interpretation Comments Basophils # (test code 0.1 See_Comment [Aut omated message] The = Basophils #) system which generated this result tra nsmitted reference range : <=0.2. The reference r christiano was not used to int erpret this result as normal/abnormal . [facility] HospitalTqlffkmLNSCDTVBBM3049-54-27 10:24:00 Test Item Value Reference Range Interpretation Comments WBC (test code = WBC) 7.5 3.7-10.4 [facility]sovWNDCQPTJBB9959[facility] 10:24:00 Test Item Value Reference Range Interpretation Comments RBC (test code = RBC) 3.85 4.20-5.40 [facility] HospitalMjukrdtOBMDIRVZFX0256-07-15 10:24:00 Test Item Value Reference Range Interpretation Comments Hgb (test code = Hgb) 10.6 12.0-16.0 [facility] HospitalAqjsdccUYLTIGOQCC3682-89-32 10:24:00 Test Item Value Reference Range Interpretation Comments Hct (test code = Hct) 32.1 36.0-48.0 [facility] HospitalWwmkiqiAINUAKFZFH3478-20-29 10:24:00 Test Item Value Reference Range Interpretation Comments MCV (test code = MCV) 83.5 80.0-98.0 [facility] HospitalBoirhccBQKHFCFBIA8102-79-37 10:24:00 Test Item Value Reference Range Interpretation Comments MCH (test code = MCH) 27.7 pg 27.0-31.0 [facility] HospitalCrdmrayLFRANIKLYS9945-34-82 10:24:00 Test Item Value Reference Range Interpretation Comments MCHC (test code = MCHC) 33.1 32.0-36.0 [facility] HospitalMbjjdcjNKNCTBJKUP3474-39-55 10:24:00 Test Item Value Reference Range Interpretation Comments RDW (test code = RDW) 16.8 11.5-14.5 [facility] HospitalJwwpkftHFDFTFAEVU5753-03-33 10:24:00 Test Item Value Reference Range Interpretation Comments Platelet (test code = Platelet) 185 133-450 [facility] HospitalGwhewawYLLJMRYPNK6826-02-95 10:24:00 Test Item Value Reference Range Interpretation Comments MPV (test code = MPV) 8.4 7.4-10.4 [facility]2020-12-07 10:24:00 Test Item Value Reference Range Interpretation Comments Glucose Lvl (test code = Glucose Lvl) 66 70-99 [facility]2020-12-07 10:24:00 Test Item Value Reference Range Interpretation Comments BUN (test code = BUN) 19 7-22 [facility]2020-12-07 10:24:00 Test Item Value Reference Range Interpretation Comments Creatinine Lvl (test code = Creatinine 1.82 0.50-1.40 Lvl) [facility]2020-12-07 10:24:00 Test Item Value Reference Range Interpretation Comments Sodium Lvl (test code = Sodium Lvl) 139 135-145 [facility]2020-12-07 10:24:00 Test Item Value Reference Range Interpretation Comments Potassium Lvl (test code = Potassium 4.2 3.5-5.1 Lvl) [facility]2020-12-07 10:24:00 Test Item Value Reference Range Interpretation Comments Chloride Lvl (test code = Chloride Lvl) 105 95-109 [facility]2020-12-07 10:24:00 Test Item Value Reference Range Interpretation Comments CO2 (test code = CO2) 28 24-32 [facility]2020-12-07 10:24:00 Test Item Value Reference Range Interpretation Comments Calcium Lvl (test code = Calcium Lvl) 8.2 8.5-10.5 [facility]2020-12-07 10:24:00 Test Item Value Reference Range Interpretation Comments AGAP (test code = AGAP) 10.2 10.0-20.0 [facility]2020-12-07 10:24:00 Test Item Value Reference Range Interpretation Comments eGFR (test code = eGFR) 26 [facility] HospitalHnwmilsIJABOEHTKB8878-27-99 10:24:00 Test Item Value Reference Range Interpretation Comments Segs (test code = Segs) 70.6 45.0-75.0 [place] 633380-12-07 10:24:00 Test Item Value Reference Range Interpretation Comments Lymphocytes (test code = Lymphocytes) 13.2 20.0-40.0 [place] [address]-12-07 10:24:00 Test Item Value Reference Range Interpretation Comments Monocytes (test code = Monocytes) 10.9 2.0-12.0 [place] 633380-12-07 10:24:00 Test Item Value Reference Range Interpretation Comments Eosinophils (test code = 4.6 See_Comment [A utomated message] The Eosinophils) system which ge nerated this result tra nsmitted reference range : <=4.0. The reference r christiano was not used to int erpret this result as normal/abnormal . [facility] HospitalHibbtliSXJQHNZFGM9061-96-82 10:24:00 Test Item Value Reference Range Interpretation Comments Basophils (test code = 0.7 See_Comment [Aut omated message] The Basophils) system which ge nerated this result tra nsmitted reference range : <=1.0. The reference r christiano was not used to int erpret this result as normal/abnormal . [facility] HospitalSmmgeegFMCQVQVAAU2713-95-65 10:24:00 Test Item Value Reference Range Interpretation Comments Neutrophils # (test code = Neutrophils 5.3 1.5-8.1 #) [facility] HospitalPzrslfgDNFZXKSNZD1216-51-48 10:24:00 Test Item Value Reference Range Interpretation Comments Lymphocytes # (test code = Lymphocytes 1.0 1.0-5.5 #) [facility] HospitalQyfqktmJWFQZZATWU1426-53-70 10:24:00 Test Item Value Reference Range Interpretation Comments Monocytes # (test code 0.8 See_Comment [Aut omated message] The = Monocytes #) system which generated this result tra nsmitted reference range : <=0.8. The reference r christiano was not used to int erpret this result as normal/abnormal . [facility] HospitalUfjbubnQOYHUJVOWN7433-22-57 10:24:00 Test Item Value Reference Range Interpretation Comments Eosinophils # (test code 0.3 See_Comment [A utomated message] The = Eosinophils #) system whic h generated this result tra nsmitted reference range : <=0.5. The reference r christiano was not used to int erpret this result as normal/abnormal . [facility] HospitalJwlntqcFSNDFTYWSF5866-28-35 10:24:00 Test Item Value Reference Range Interpretation Comments Basophils # (test code 0.1 See_Comment [Aut omated message] The = Basophils #) system which generated this result tra nsmitted reference range : <=0.2. The reference r christiano was not used to int erpret this result as normal/abnormal . [facility] HospitalYlbaqqtWISKAXLMZY4580-04-23 10:24:00 Test Item Value Reference Range Interpretation Comments WBC (test code = WBC) 7.5 3.7-10.4 [facility] HospitalPmtfpheWMIJROSFKI3824-67-66 10:24:00 Test Item Value Reference Range Interpretation Comments RBC (test code = RBC) 3.85 4.20-5.40 [facility] HospitalAiokbwhUGMTONXZPB6789-27-85 10:24:00 Test Item Value Reference Range Interpretation Comments Hgb (test code = Hgb) 10.6 12.0-16.0 [facility] HospitalEbhzoptJZREBZFRYQ1438-54-81 10:24:00 Test Item Value Reference Range Interpretation Comments Hct (test code = Hct) 32.1 36.0-48.0 [facility] HospitalXqwhkakDFSMEQCNNO4355-30-49 10:24:00 Test Item Value Reference Range Interpretation Comments MCV (test code = MCV) 83.5 80.0-98.0 [facility] HospitalIyzgrdqZXFVDPREEO5021-82-48 10:24:00 Test Item Value Reference Range Interpretation Comments MCH (test code = MCH) 27.7 pg 27.0-31.0 [facility] HospitalZyuaznxGAHVUYWNAZ3980-09-17 10:24:00 Test Item Value Reference Range Interpretation Comments MCHC (test code = MCHC) 33.1 32.0-36.0 [facility] HospitalBuajwuuINWBACDPQJ1135-06-28 10:24:00 Test Item Value Reference Range Interpretation Comments RDW (test code = RDW) 16.8 11.5-14.5 [facility] HospitalNjwvofgIIRZEYNUUL7584-47-59 10:24:00 Test Item Value Reference Range Interpretation Comments Platelet (test code = Platelet) 185 133-450 [facility] HospitalTflsvmjZWBNVCDDSS4268-55-99 10:24:00 Test Item Value Reference Range Interpretation Comments MPV (test code = MPV) 8.4 7.4-10.4 [facility]2020-12-07 10:24:00 Test Item Value Reference Range Interpretation Comments Glucose Lvl (test code = Glucose Lvl) 66 70-99 [facility]2020-12-07 10:24:00 Test Item Value Reference Range Interpretation Comments BUN (test code = BUN) 19 7-22 [facility]2020-12-07 10:24:00 Test Item Value Reference Range Interpretation Comments Creatinine Lvl (test code = Creatinine 1.82 0.50-1.40 Lvl) [facility]2020-12-07 10:24:00 Test Item Value Reference Range Interpretation Comments Sodium Lvl (test code = Sodium Lvl) 139 135-145 [place] 454360-12-07 10:24:00 Test Item Value Reference Range Interpretation Comments Potassium Lvl (test code = Potassium 4.2 3.5-5.1 Lvl) [facility]2020-12-07 10:24:00 Test Item Value Reference Range Interpretation Comments Chloride Lvl (test code = Chloride Lvl) 105 95-109 [facility]2020-12-07 10:24:00 Test Item Value Reference Range Interpretation Comments CO2 (test code = CO2) 28 24-32 [place] 454360-12-07 10:24:00 Test Item Value Reference Range Interpretation Comments Calcium Lvl (test code = Calcium Lvl) 8.2 8.5-10.5 [facility]2020-12-07 10:24:00 Test Item Value Reference Range Interpretation Comments AGAP (test code = AGAP) 10.2 10.0-20.0 [facility]2020-12-07 10:24:00 Test Item Value Reference Range Interpretation Comments eGFR (test code = eGFR) 26 [facility] HospitalKigdetaZIQRYLGNLU8813-79-73 10:24:00 Test Item Value Reference Range Interpretation Comments Segs (test code = Segs) 70.6 45.0-75.0 [place] 633380-12-07 10:24:00 Test Item Value Reference Range Interpretation Comments Lymphocytes (test code = Lymphocytes) 13.2 20.0-40.0 [place] 633380-12-07 10:24:00 Test Item Value Reference Range Interpretation Comments Monocytes (test code = Monocytes) 10.9 2.0-12.0 [place] [address]-12-07 10:24:00 Test Item Value Reference Range Interpretation Comments Eosinophils (test code = 4.6 See_Comment [A utomated message] The Eosinophils) system which ge nerated this result tra nsmitted reference range : <=4.0. The reference r christiano was not used to int erpret this result as normal/abnormal . [facility] HospitalOefqymdSZAZLWADZX3541-52-49 10:24:00 Test Item Value Reference Range Interpretation Comments Basophils (test code = 0.7 See_Comment [Aut omated message] The Basophils) system which ge nerated this result tra nsmitted reference range : <=1.0. The reference r christiano was not used to int erpret this result as normal/abnormal . [facility] HospitalUlaeilvOAFRNNTVNV1749-21-33 10:24:00 Test Item Value Reference Range Interpretation Comments Neutrophils # (test code = Neutrophils 5.3 1.5-8.1 #) [facility] HospitalJshwmvpIIYNZOSGGW6362-71-83 10:24:00 Test Item Value Reference Range Interpretation Comments Lymphocytes # (test code = Lymphocytes 1.0 1.0-5.5 #) [facility] HospitalGxtezxzAWGOTLIWVM8657-60-74 10:24:00 Test Item Value Reference Range Interpretation Comments Monocytes # (test code 0.8 See_Comment [Aut omated message] The = Monocytes #) system which generated this result tra nsmitted reference range : <=0.8. The reference r christiano was not used to int erpret this result as normal/abnormal . [facility] HospitalExbocmqWQYNAORFLA0368-00-38 10:24:00 Test Item Value Reference Range Interpretation Comments Eosinophils # (test code 0.3 See_Comment [A utomated message] The = Eosinophils #) system whic h generated this result tra nsmitted reference range : <=0.5. The reference r christiano was not used to int erpret this result as normal/abnormal . [facility] HospitalEplglrpHNILUJYFML7362-32-37 10:24:00 Test Item Value Reference Range Interpretation Comments Basophils # (test code 0.1 See_Comment [Aut omated message] The = Basophils #) system which generated this result tra nsmitted reference range : <=0.2. The reference r christiano was not used to int erpret this result as normal/abnormal . [facility] HospitalEikzbiiVKISLZNMVC5352-74-39 10:24:00 Test Item Value Reference Range Interpretation Comments WBC (test code = WBC) 7.5 3.7-10.4 [facility] HospitalVcqwfeqZVPNVJWMZO7684-70-45 10:24:00 Test Item Value Reference Range Interpretation Comments RBC (test code = RBC) 3.85 4.20-5.40 [facility] HospitalJrfqkolBYSPLHLEXG7510-45-02 10:24:00 Test Item Value Reference Range Interpretation Comments Hgb (test code = Hgb) 10.6 12.0-16.0 [place] [address]-12-07 10:24:00 Test Item Value Reference Range Interpretation Comments Hct (test code = Hct) 32.1 36.0-48.0 [place] [address]-12-07 10:24:00 Test Item Value Reference Range Interpretation Comments MCV (test code = MCV) 83.5 80.0-98.0 [place] [address]-12-07 10:24:00 Test Item Value Reference Range Interpretation Comments MCH (test code = MCH) 27.7 pg 27.0-31.0 [place] [address]-12-07 10:24:00 Test Item Value Reference Range Interpretation Comments MCHC (test code = MCHC) 33.1 32.0-36.0 [place] [address]-12-07 10:24:00 Test Item Value Reference Range Interpretation Comments RDW (test code = RDW) 16.8 11.5-14.5 [place] [address]-12-07 10:24:00 Test Item Value Reference Range Interpretation Comments Platelet (test code = Platelet) 185 133-450 [place] [address]-12-07 10:24:00 Test Item Value Reference Range Interpretation Comments MPV (test code = MPV) 8.4 7.4-10.4 [facility]2020-12-07 10:24:00 Test Item Value Reference Range Interpretation Comments Glucose Lvl (test code = Glucose Lvl) 66 70-99 [facility]2020-12-07 10:24:00 Test Item Value Reference Range Interpretation Comments BUN (test code = BUN) 19 7-22 [place] 454360-12-07 10:24:00 Test Item Value Reference Range Interpretation Comments Creatinine Lvl (test code = Creatinine 1.82 0.50-1.40 Lvl) [place] 454360-12-07 10:24:00 Test Item Value Reference Range Interpretation Comments Sodium Lvl (test code = Sodium Lvl) 139 135-145 [place] 454360-12-07 10:24:00 Test Item Value Reference Range Interpretation Comments Potassium Lvl (test code = Potassium 4.2 3.5-5.1 Lvl) [facility]2020-12-07 10:24:00 Test Item Value Reference Range Interpretation Comments Chloride Lvl (test code = Chloride Lvl) 105 95-109 [facility]2020-12-07 10:24:00 Test Item Value Reference Range Interpretation Comments CO2 (test code = CO2) 28 24-32 [facility]2020-12-07 10:24:00 Test Item Value Reference Range Interpretation Comments Calcium Lvl (test code = Calcium Lvl) 8.2 8.5-10.5 [facility]2020-12-07 10:24:00 Test Item Value Reference Range Interpretation Comments AGAP (test code = AGAP) 10.2 10.0-20.0 [facility]2020-12-07 10:24:00 Test Item Value Reference Range Interpretation Comments eGFR (test code = eGFR) 26 [facility] HospitalEadwieuHYLLPGVAHL2771-47-36 10:24:00 Test Item Value Reference Range Interpretation Comments Segs (test code = Segs) 70.6 45.0-75.0 [facility] HospitalOinycsnXSFEOELJPM3866-95-24 10:24:00 Test Item Value Reference Range Interpretation Comments Lymphocytes (test code = Lymphocytes) 13.2 20.0-40.0 [facility] HospitalEzddspcACNGMIPOYX3969-39-87 10:24:00 Test Item Value Reference Range Interpretation Comments Monocytes (test code = Monocytes) 10.9 2.0-12.0 [facility] HospitalDerimsaXJUMXNLJCA1879-35-51 10:24:00 Test Item Value Reference Range Interpretation Comments Eosinophils (test code = 4.6 See_Comment [A utomated message] The Eosinophils) system which ge nerated this result tra nsmitted reference range : <=4.0. The reference r christiano was not used to int erpret this result as normal/abnormal . [facility] HospitalBkplbciSZRFYXQBAE1252-02-40 10:24:00 Test Item Value Reference Range Interpretation Comments Basophils (test code = 0.7 See_Comment [Aut omated message] The Basophils) system which ge nerated this result tra nsmitted reference range : <=1.0. The reference r christiano was not used to int erpret this result as normal/abnormal . [facility] HospitalVqiqvvzFVRUCPPPLZ8292-88-76 10:24:00 Test Item Value Reference Range Interpretation Comments Neutrophils # (test code = Neutrophils 5.3 1.5-8.1 #) [place] 633380-12-07 10:24:00 Test Item Value Reference Range Interpretation Comments Lymphocytes # (test code = Lymphocytes 1.0 1.0-5.5 #) [facility] HospitalUenpzkmFPYRVQAYES9268-24-10 10:24:00 Test Item Value Reference Range Interpretation Comments Monocytes # (test code 0.8 See_Comment [Aut omated message] The = Monocytes #) system which generated this result tra nsmitted reference range : <=0.8. The reference r christiano was not used to int erpret this result as normal/abnormal . [facility] HospitalMhumaflIMWSQDZMCH2102-75-79 10:24:00 Test Item Value Reference Range Interpretation Comments Eosinophils # (test code 0.3 See_Comment [A utomated message] The = Eosinophils #) system whic h generated this result tra nsmitted reference range : <=0.5. The reference r christiano was not used to int erpret this result as normal/abnormal . [facility] HospitalUdevshcEYOTLQVDQN5468-09-42 10:24:00 Test Item Value Reference Range Interpretation Comments Basophils # (test code 0.1 See_Comment [Aut omated message] The = Basophils #) system which generated this result tra nsmitted reference range : <=0.2. The reference r christiano was not used to int erpret this result as normal/abnormal . [facility] HospitalLtqymliKOFWQULPJL2605-13-28 10:24:00 Test Item Value Reference Range Interpretation Comments WBC (test code = WBC) 7.5 3.7-10.4 [facility] HospitalLzfuhdlDMCECHTBPO3474-40-58 10:24:00 Test Item Value Reference Range Interpretation Comments RBC (test code = RBC) 3.85 4.20-5.40 [place] 633380-12-07 10:24:00 Test Item Value Reference Range Interpretation Comments Hgb (test code = Hgb) 10.6 12.0-16.0 [place] [address]-12-07 10:24:00 Test Item Value Reference Range Interpretation Comments Hct (test code = Hct) 32.1 36.0-48.0 [place] [address]-12-07 10:24:00 Test Item Value Reference Range Interpretation Comments MCV (test code = MCV) 83.5 80.0-98.0 [place] [address]-12-07 10:24:00 Test Item Value Reference Range Interpretation Comments MCH (test code = MCH) 27.7 pg 27.0-31.0 [place] 633380-12-07 10:24:00 Test Item Value Reference Range Interpretation Comments MCHC (test code = MCHC) 33.1 32.0-36.0 [facility] HospitalVbsgileOLOZIIOFHU3573-97-31 10:24:00 Test Item Value Reference Range Interpretation Comments RDW (test code = RDW) 16.8 11.5-14.5 [place] [address]-12-07 10:24:00 Test Item Value Reference Range Interpretation Comments Platelet (test code = Platelet) 185 133-450 [place] [address]-12-07 10:24:00 Test Item Value Reference Range Interpretation Comments MPV (test code = MPV) 8.4 7.4-10.4 [place] 454360-12-06 09:53:13 Test Item Value Reference Range Interpretation Comments Magnesium Lvl (test code = Magnesium 2.2 1.8-2.4 Lvl) [place] 454360-12-06 09:53:13 Test Item Value Reference Range Interpretation Comments Phosphorus (test code = Phosphorus) 2.9 2.5-4.5 [place] 454360-12-06 09:53:13 Test Item Value Reference Range Interpretation Comments Glucose Lvl (test code = Glucose Lvl) 102 70-99 [place] 454360-12-06 09:53:13 Test Item Value Reference Range Interpretation Comments BUN (test code = BUN) 17 7-22 [place] 454360-12-06 09:53:13 Test Item Value Reference Range Interpretation Comments Creatinine Lvl (test code = Creatinine 1.51 0.50-1.40 Lvl) [place] 454360-12-06 09:53:13 Test Item Value Reference Range Interpretation Comments Sodium Lvl (test code = Sodium Lvl) 140 135-145 [place] 454360-12-06 09:53:13 Test Item Value Reference Range Interpretation Comments Potassium Lvl (test code = Potassium 3.5 3.5-5.1 Lvl) [place] 454360-12-06 09:53:13 Test Item Value Reference Range Interpretation Comments Chloride Lvl (test code = Chloride Lvl) 106 95-109 [place] 454360-12-06 09:53:13 Test Item Value Reference Range Interpretation Comments CO2 (test code = CO2) 29 24-32 [place] [address]-12-06 09:53:13 Test Item Value Reference Range Interpretation Comments Calcium Lvl (test code = Calcium Lvl) 8.3 8.5-10.5 [place] 454360-12-06 09:53:13 Test Item Value Reference Range Interpretation Comments AGAP (test code = AGAP) 8.5 10.0-20.0 [place] [address]-12-06 09:53:13 Test Item Value Reference Range Interpretation Comments eGFR (test code = eGFR) 33 [place] [address]-12-06 09:53:13 Test Item Value Reference Range Interpretation Comments WBC (test code = WBC) 8.7 3.7-10.4 [place] [address]-12-06 09:53:13 Test Item Value Reference Range Interpretation Comments RBC (test code = RBC) 3.96 4.20-5.40 [place] [address]-12-06 09:53:13 Test Item Value Reference Range Interpretation Comments Hgb (test code = Hgb) 10.7 12.0-16.0 [place] [address]-12-06 09:53:13 Test Item Value Reference Range Interpretation Comments Hct (test code = Hct) 32.8 36.0-48.0 [place] [address]-12-06 09:53:13 Test Item Value Reference Range Interpretation Comments MCV (test code = MCV) 83.0 80.0-98.0 [place] [address]-12-06 09:53:13 Test Item Value Reference Range Interpretation Comments MCH (test code = MCH) 26.9 pg 27.0-31.0 [place] [address]11-12-06 09:53:13 Test Item Value Reference Range Interpretation Comments MCHC (test code = MCHC) 32.4 32.0-36.0 [place] [address]-12-06 09:53:13 Test Item Value Reference Range Interpretation Comments RDW (test code = RDW) 16.5 11.5-14.5 [place] [address]-12-06 09:53:13 Test Item Value Reference Range Interpretation Comments Platelet (test code = Platelet) 157 133-450 [place] [address]-12-06 09:53:13 Test Item Value Reference Range Interpretation Comments MPV (test code = MPV) 7.5 7.4-10.4 [place] [address]-12-06 09:53:13 Test Item Value Reference Range Interpretation Comments Neutrophils # (test code = Neutrophils 7.2 1.5-8.1 #) [place] [address]-12-06 09:53:13 Test Item Value Reference Range Interpretation Comments Lymphocytes # (test code = Lymphocytes 0.9 1.0-5.5 #) [place] [address]-12-06 09:53:13 Test Item Value Reference Range Interpretation Comments Monocytes # (test code 0.5 See_Comment [Aut omated message] The = Monocytes #) system which generated this result tra nsmitted reference range : <=0.8. The reference r christiano was not used to int erpret this result as normal/abnormal . [place] [address]-12-06 09:53:13 Test Item Value Reference Range Interpretation Comments Basophils # (test code 0.1 See_Comment [Aut omated message] The = Basophils #) system which generated this result tra nsmitted reference range : <=0.2. The reference r christiano was not used to int erpret this result as normal/abnormal . [place] [address]-12-06 09:53:13 Test Item Value Reference Range Interpretation Comments Segs (test code = Segs) 83.0 45.0-75.0 [place] [address]-12-06 09:53:13 Test Item Value Reference Range Interpretation Comments Bands (test code = 0.0 See_Comment [Automat ed message] The Bands) system which ge nerated this result transmit sheba reference range : <=11.0. The reference r christiano was not used to interpr et this result as edy l/abnormal. [place] [address]-12-06 09:53:13 Test Item Value Reference Range Interpretation Comments Lymphocytes (test code = Lymphocytes) 10.0 20.0-40.0 [place] [address]-12-06 09:53:13 Test Item Value Reference Range Interpretation Comments Monocytes (test code = Monocytes) 6.0 2.0-12.0 [place] [address]-12-06 09:53:13 Test Item Value Reference Range Interpretation Comments Basophils (test code = 1.0 See_Comment [Aut omated message] The Basophils) system which ge nerated this result tra nsmitted reference range : <=1.0. The reference r christiano was not used to int erpret this result as normal/abnormal . [place] 633380-12-06 09:53:13 Test Item Value Reference Range Interpretation Comments Atypical Lymphs (test code = Atypical 0.0 Lymphs) [place] [address]-12-06 09:53:13 Test Item Value Reference Range Interpretation Comments RBC Morph (test code = Normal (09/05/20 3:53 RBC Morph) AM) [place] [address]-12-06 09:53:13 Test Item Value Reference Range Interpretation Comments Plt Morph (test code = Normal (09/05/20 3:53 Plt Morph) AM) [place] 454360-12-06 09:53:13 Test Item Value Reference Range Interpretation Comments Magnesium Lvl (test code = Magnesium 2.2 1.8-2.4 Lvl) [place] 454360-12-06 09:53:13 Test Item Value Reference Range Interpretation Comments Phosphorus (test code = Phosphorus) 2.9 2.5-4.5 [place] 454360-12-06 09:53:13 Test Item Value Reference Range Interpretation Comments Glucose Lvl (test code = Glucose Lvl) 102 70-99 [place] 454360-12-06 09:53:13 Test Item Value Reference Range Interpretation Comments BUN (test code = BUN) 17 7-22 [place] [address]-12-06 09:53:13 Test Item Value Reference Range Interpretation Comments Creatinine Lvl (test code = Creatinine 1.51 0.50-1.40 Lvl) [place] 454360-12-06 09:53:13 Test Item Value Reference Range Interpretation Comments Sodium Lvl (test code = Sodium Lvl) 140 135-145 [place] [address]-12-06 09:53:13 Test Item Value Reference Range Interpretation Comments Potassium Lvl (test code = Potassium 3.5 3.5-5.1 Lvl) [place] [address]-12-06 09:53:13 Test Item Value Reference Range Interpretation Comments Chloride Lvl (test code = Chloride Lvl) 106 95-109 [place] [address]-12-06 09:53:13 Test Item Value Reference Range Interpretation Comments CO2 (test code = CO2) 29 24-[address]12-06 09:53:13 Test Item Value Reference Range Interpretation Comments Calcium Lvl (test code = Calcium Lvl) 8.3 8.5-10.5 [address]12-06 09:53:13 Test Item Value Reference Range Interpretation Comments AGAP (test code = AGAP) 8.5 10.0-20.0 [address]12-06 09:53:13 Test Item Value Reference Range Interpretation Comments eGFR (test code = eGFR) [address]12-06 09:53:13 Test Item Value Reference Range Interpretation Comments Magnesium Lvl (test code = Magnesium 2.2 1.8-2.4 Lvl) [place] 454360-12-06 09:53:13 Test Item Value Reference Range Interpretation Comments Phosphorus (test code = Phosphorus) 2.9 2.5-4.5 [place] [address]-12-06 09:53:13 Test Item Value Reference Range Interpretation Comments Glucose Lvl (test code = Glucose Lvl) 102 70-99 [place] [address]-12-06 09:53:13 Test Item Value Reference Range Interpretation Comments BUN (test code = BUN) 17 7-22 [place] [address]-12-06 09:53:13 Test Item Value Reference Range Interpretation Comments Creatinine Lvl (test code = Creatinine 1.51 0.50-1.40 Lvl) [place] [address]-12-06 09:53:13 Test Item Value Reference Range Interpretation Comments Sodium Lvl (test code = Sodium Lvl) 140 135-145 [place] [address]-12-06 09:53:13 Test Item Value Reference Range Interpretation Comments Potassium Lvl (test code = Potassium 3.5 3.5-5.1 Lvl) [address]12-06 09:53:13 Test Item Value Reference Range Interpretation Comments Chloride Lvl (test code = Chloride Lvl) 106 95-109 [place] [address]-12-06 09:53:13 Test Item Value Reference Range Interpretation Comments WBC (test code = WBC) 8.7 3.7-10.4 [place] 454360-12-06 09:53:13 Test Item Value Reference Range Interpretation Comments CO2 (test code = CO2) 29 24-32 [place] 454360-12-06 09:53:13 Test Item Value Reference Range Interpretation Comments Calcium Lvl (test code = Calcium Lvl) 8.3 8.5-10.5 [address]12-06 09:53:13 Test Item Value Reference Range Interpretation Comments AGAP (test code = AGAP) 8.5 10.0-20.0 [place] [address]-12-06 09:53:13 Test Item Value Reference Range Interpretation Comments eGFR (test code = eGFR) 33 [place] 633380-12-06 09:53:13 Test Item Value Reference Range Interpretation Comments WBC (test code = WBC) 8.7 3.7-10.4 [place] [address]-12-06 09:53:13 Test Item Value Reference Range Interpretation Comments RBC (test code = RBC) 3.96 4.20-5.40 [place] [address]-12-06 09:53:13 Test Item Value Reference Range Interpretation Comments Hgb (test code = Hgb) 10.7 12.0-16.0 [place] [address]-12-06 09:53:13 Test Item Value Reference Range Interpretation Comments Hct (test code = Hct) 32.8 36.0-48.0 [place] [address]-12-06 09:53:13 Test Item Value Reference Range Interpretation Comments MCV (test code = MCV) 83.0 80.0-98.0 [place] [address]-12-06 09:53:13 Test Item Value Reference Range Interpretation Comments MCH (test code = MCH) 26.9 pg 27.0-31.0 [place] [address]-12-06 09:53:13 Test Item Value Reference Range Interpretation Comments RBC (test code = RBC) 3.96 4.20-5.40 [place] [address]-12-06 09:53:13 Test Item Value Reference Range Interpretation Comments MCHC (test code = MCHC) 32.4 32.0-36.0 [place] 633380-12-06 09:53:13 Test Item Value Reference Range Interpretation Comments RDW (test code = RDW) 16.5 11.5-14.5 [place] [address]-12-06 09:53:13 Test Item Value Reference Range Interpretation Comments Platelet (test code = Platelet) 157 133-450 [place] 633380-12-06 09:53:13 Test Item Value Reference Range Interpretation Comments MPV (test code = MPV) 7.5 7.4-10.4 [place] [address]-12-06 09:53:13 Test Item Value Reference Range Interpretation Comments Neutrophils # (test code = Neutrophils 7.2 1.5-8.1 #) [place] [address]-12-06 09:53:13 Test Item Value Reference Range Interpretation Comments Lymphocytes # (test code = Lymphocytes 0.9 1.0-5.5 #) [place] [address]-12-06 09:53:13 Test Item Value Reference Range Interpretation Comments Monocytes # (test code 0.5 See_Comment [Aut omated message] The = Monocytes #) system which generated this result tra nsmitted reference range : <=0.8. The reference r christiano was not used to int erpret this result as normal/abnormal . [place] [address]-12-06 09:53:13 Test Item Value Reference Range Interpretation Comments Basophils # (test code 0.1 See_Comment [Aut omated message] The = Basophils #) system which generated this result tra nsmitted reference range : <=0.2. The reference r christiano was not used to int erpret this result as normal/abnormal . [place] [address]-12-06 09:53:13 Test Item Value Reference Range Interpretation Comments Segs (test code = Segs) 83.0 45.0-75.0 [place] [address]-12-06 09:53:13 Test Item Value Reference Range Interpretation Comments Bands (test code = 0.0 See_Comment [Automat ed message] The Bands) system which ge nerated this result transmit sheba reference range : <=11.0. The reference r christiano was not used to interpr et this result as edy l/abnormal. [place] 633380-12-06 09:53:13 Test Item Value Reference Range Interpretation Comments Hgb (test code = Hgb) 10.7 12.0-16.0 [place] [address]-12-06 09:53:13 Test Item Value Reference Range Interpretation Comments Lymphocytes (test code = Lymphocytes) 10.0 20.0-40.0 [place] [address]-12-06 09:53:13 Test Item Value Reference Range Interpretation Comments Monocytes (test code = Monocytes) 6.0 2.0-12.0 [place] [address]-12-06 09:53:13 Test Item Value Reference Range Interpretation Comments Basophils (test code = 1.0 See_Comment [Aut omated message] The Basophils) system which ge nerated this result tra nsmitted reference range : <=1.0. The reference r christiano was not used to int erpret this result as normal/abnormal . [facility] Test Item Value Reference Range Interpretation Comments Atypical Lymphs (test code = Atypical 0.0 Lymphs) [place] [address]-12-06 09:53:13 Test Item Value Reference Range Interpretation Comments RBC Morph (test code = Normal (09/05/20 3:53 RBC Morph) AM) [place] [address]-12-06 09:53:13 Test Item Value Reference Range Interpretation Comments Plt Morph (test code = Normal (09/05/20 3:53 Plt Morph) AM) [place] [address]-12-06 09:53:13 Test Item Value Reference Range Interpretation Comments Hct (test code = Hct) 32.8 36.0-48.0 [place] [address]-12-06 09:53:13 Test Item Value Reference Range Interpretation Comments MCV (test code = MCV) 83.0 80.0-98.0 [place] [address]-12-06 09:53:13 Test Item Value Reference Range Interpretation Comments MCH (test code = MCH) 26.9 pg 27.0-31.0 [place] [address]-12-06 09:53:13 Test Item Value Reference Range Interpretation Comments MCHC (test code = MCHC) 32.4 32.0-36.0 [place] [address]-12-06 09:53:13 Test Item Value Reference Range Interpretation Comments RDW (test code = RDW) 16.5 11.5-14.5 [place] [address]-12-06 09:53:13 Test Item Value Reference Range Interpretation Comments Platelet (test code = Platelet) 157 133-450 [place] [address]-12-06 09:53:13 Test Item Value Reference Range Interpretation Comments MPV (test code = MPV) 7.5 7.4-10.4 [place] [address]-12-06 09:53:13 Test Item Value Reference Range Interpretation Comments Neutrophils # (test code = Neutrophils 7.2 1.5-8.1 #) [place] [address]-12-06 09:53:13 Test Item Value Reference Range Interpretation Comments Lymphocytes # (test code = Lymphocytes 0.9 1.0-5.5 #) [place] [address]-12-06 09:53:13 Test Item Value Reference Range Interpretation Comments Monocytes # (test code 0.5 See_Comment [Aut omated message] The = Monocytes #) system which generated this result tra nsmitted reference range : <=0.8. The reference r christiano was not used to int erpret this result as normal/abnormal . [place] [address]-12-06 09:53:13 Test Item Value Reference Range Interpretation Comments Basophils # (test code 0.1 See_Comment [Aut omated message] The = Basophils #) system which generated this result tra nsmitted reference range : <=0.2. The reference r christiano was not used to int erpret this result as normal/abnormal . [place] 633380-12-06 09:53:13 Test Item Value Reference Range Interpretation Comments Segs (test code = Segs) 83.0 45.0-75.0 [place] [address]-12-06 09:53:13 Test Item Value Reference Range Interpretation Comments Bands (test code = 0.0 See_Comment [Automat ed message] The Bands) system which ge nerated this result transmit sheba reference range : <=11.0. The reference r christiano was not used to interpr et this result as edy l/abnormal. [place] [address]-12-06 09:53:13 Test Item Value Reference Range Interpretation Comments Lymphocytes (test code = Lymphocytes) 10.0 20.0-40.0 [place] [address]-12-06 09:53:13 Test Item Value Reference Range Interpretation Comments Monocytes (test code = Monocytes) 6.0 2.0-12.0 [place] [address]-12-06 09:53:13 Test Item Value Reference Range Interpretation Comments Basophils (test code = 1.0 See_Comment [Aut omated message] The Basophils) system which ge nerated this result tra nsmitted reference range : <=1.0. The reference r christiano was not used to int erpret this result as normal/abnormal . [place] [address]-12-06 09:53:13 Test Item Value Reference Range Interpretation Comments Atypical Lymphs (test code = Atypical 0.0 Lymphs) [address]12-06 09:53:13 Test Item Value Reference Range Interpretation Comments RBC Morph (test code = Normal (09/05/20 3:53 RBC Morph) AM) [place] [address]-12-06 09:53:13 Test Item Value Reference Range Interpretation Comments Plt Morph (test code = Normal (09/05/20 3:53 Plt Morph) AM) [place] 454360-12-06 09:53:13 Test Item Value Reference Range Interpretation Comments Magnesium Lvl (test code = Magnesium 2.2 1.8-2.4 Lvl) [place] [address]-12-06 09:53:13 Test Item Value Reference Range Interpretation Comments Phosphorus (test code = Phosphorus) 2.9 2.5-4.5 [place] [address]-12-06 09:53:13 Test Item Value Reference Range Interpretation Comments Glucose Lvl (test code = Glucose Lvl) 102 70-99 [place] [address]-12-06 09:53:13 Test Item Value Reference Range Interpretation Comments BUN (test code = BUN) 17 7-22 [place] [address]-12-06 09:53:13 Test Item Value Reference Range Interpretation Comments Creatinine Lvl (test code = Creatinine 1.51 0.50-1.40 Lvl) [place] 454360-12-06 09:53:13 Test Item Value Reference Range Interpretation Comments Sodium Lvl (test code = Sodium Lvl) 140 135-145 [place] 454360-12-06 09:53:13 Test Item Value Reference Range Interpretation Comments Potassium Lvl (test code = Potassium 3.5 3.5-5.1 Lvl) [place] 454360-12-06 09:53:13 Test Item Value Reference Range Interpretation Comments Chloride Lvl (test code = Chloride Lvl) 106 95-109 [place] [address]-12-06 09:53:13 Test Item Value Reference Range Interpretation Comments CO2 (test code = CO2) 29 24-32 [address]12-06 09:53:13 Test Item Value Reference Range Interpretation Comments Calcium Lvl (test code = Calcium Lvl) 8.3 8.5-10.5 [place] [address]-12-06 09:53:13 Test Item Value Reference Range Interpretation Comments AGAP (test code = AGAP) 8.5 10.0-20.0 [place] 454360-12-06 09:53:13 Test Item Value Reference Range Interpretation Comments eGFR (test code = eGFR) 33 [place] [address]-12-06 09:53:13 Test Item Value Reference Range Interpretation Comments WBC (test code = WBC) 8.7 3.7-10.4 [place] [address]-12-06 09:53:13 Test Item Value Reference Range Interpretation Comments RBC (test code = RBC) 3.96 4.20-5.40 [place] [address]-12-06 09:53:13 Test Item Value Reference Range Interpretation Comments Hgb (test code = Hgb) 10.7 12.0-16.0 [address]12-06 09:53:13 Test Item Value Reference Range Interpretation Comments Hct (test code = Hct) 32.8 36.0-48.0 [place] [address]-12-06 09:53:13 Test Item Value Reference Range Interpretation Comments MCV (test code = MCV) 83.0 80.0-98.0 [place] [address]-12-06 09:53:13 Test Item Value Reference Range Interpretation Comments MCH (test code = MCH) 26.9 pg 27.0-31.0 [place] [address]-12-06 09:53:13 Test Item Value Reference Range Interpretation Comments MCHC (test code = MCHC) 32.4 32.0-36.0 [place] [address]-12-06 09:53:13 Test Item Value Reference Range Interpretation Comments RDW (test code = RDW) 16.5 11.5-14.5 [place] [address]-12-06 09:53:13 Test Item Value Reference Range Interpretation Comments Platelet (test code = Platelet) 157 133-450 [place] [address]-12-06 09:53:13 Test Item Value Reference Range Interpretation Comments MPV (test code = MPV) 7.5 7.4-10.4 [place] [address]-12-06 09:53:13 Test Item Value Reference Range Interpretation Comments Neutrophils # (test code = Neutrophils 7.2 1.5-8.1 #) [place] [address]-12-06 09:53:13 Test Item Value Reference Range Interpretation Comments Lymphocytes # (test code = Lymphocytes 0.9 1.0-5.5 #) [place] [address]-12-06 09:53:13 Test Item Value Reference Range Interpretation Comments Monocytes # (test code 0.5 See_Comment [Aut omated message] The = Monocytes #) system which generated this result tra nsmitted reference range : <=0.8. The reference r christiano was not used to int erpret this result as normal/abnormal . [place] [address]-12-06 09:53:13 Test Item Value Reference Range Interpretation Comments Basophils # (test code 0.1 See_Comment [Aut omated message] The = Basophils #) system which generated this result tra nsmitted reference range : <=0.2. The reference r christiano was not used to int erpret this result as normal/abnormal . [place] [address]-12-06 09:53:13 Test Item Value Reference Range Interpretation Comments Segs (test code = Segs) 83.0 45.0-75.0 [place] [address]-12-06 09:53:13 Test Item Value Reference Range Interpretation Comments Bands (test code = 0.0 See_Comment [Automat ed message] The Bands) system which ge nerated this result transmit sheba reference range : <=11.0. The reference r christiano was not used to interpr et this result as edy l/abnormal. [place] [address]-12-06 09:53:13 Test Item Value Reference Range Interpretation Comments Lymphocytes (test code = Lymphocytes) 10.0 20.0-40.0 [place] [address]-12-06 09:53:13 Test Item Value Reference Range Interpretation Comments Monocytes (test code = Monocytes) 6.0 2.0-12.0 [place] [address]-12-06 09:53:13 Test Item Value Reference Range Interpretation Comments Basophils (test code = 1.0 See_Comment [Aut omated message] The Basophils) system which ge nerated this result tra nsmitted reference range : <=1.0. The reference r christiano was not used to int erpret this result as normal/abnormal . [address]12-06 09:53:13 Test Item Value Reference Range Interpretation Comments Atypical Lymphs (test code = Atypical 0.0 Lymphs) [address]12-06 09:53:13 Test Item Value Reference Range Interpretation Comments RBC Morph (test code = Normal (09/05/20 3:53 RBC Morph) AM) [address]12-06 09:53:13 Test Item Value Reference Range Interpretation Comments Plt Morph (test code = Normal (09/05/20 3:53 Plt Morph) AM) [place] [address]-12-06 09:53:13 Test Item Value Reference Range Interpretation Comments Magnesium Lvl (test code = Magnesium 2.2 1.8-2.4 Lvl) [place] [address]-12-06 09:53:13 Test Item Value Reference Range Interpretation Comments Phosphorus (test code = Phosphorus) 2.9 2.5-4.5 [place] [address]-12-06 09:53:13 Test Item Value Reference Range Interpretation Comments Glucose Lvl (test code = Glucose Lvl) 102 70-99 [place] [address]-12-06 09:53:13 Test Item Value Reference Range Interpretation Comments BUN (test code = BUN) 17 7-22 [place] [address]-12-06 09:53:13 Test Item Value Reference Range Interpretation Comments Creatinine Lvl (test code = Creatinine 1.51 0.50-1.40 Lvl) [place] 454360-12-06 09:53:13 Test Item Value Reference Range Interpretation Comments Sodium Lvl (test code = Sodium Lvl) 140 135-145 [place] 454360-12-06 09:53:13 Test Item Value Reference Range Interpretation Comments Potassium Lvl (test code = Potassium 3.5 3.5-5.1 Lvl) [place] 454360-12-06 09:53:13 Test Item Value Reference Range Interpretation Comments Chloride Lvl (test code = Chloride Lvl) 106 95-109 [address]12-06 09:53:13 Test Item Value Reference Range Interpretation Comments CO2 (test code = CO2) 29 24-32 [place] [address]-12-06 09:53:13 Test Item Value Reference Range Interpretation Comments Calcium Lvl (test code = Calcium Lvl) 8.3 8.5-10.5 [place] [address]-12-06 09:53:13 Test Item Value Reference Range Interpretation Comments AGAP (test code = AGAP) 8.5 10.0-20.0 [place] [address]-12-06 09:53:13 Test Item Value Reference Range Interpretation Comments eGFR (test code = eGFR) 33 [place] [address]-12-06 09:53:13 Test Item Value Reference Range Interpretation Comments WBC (test code = WBC) 8.7 3.7-10.4 [place] [address]-12-06 09:53:13 Test Item Value Reference Range Interpretation Comments RBC (test code = RBC) 3.96 4.20-5.40 [place] [address]-12-06 09:53:13 Test Item Value Reference Range Interpretation Comments Hgb (test code = Hgb) 10.7 12.0-16.0 [address]12-06 09:53:13 Test Item Value Reference Range Interpretation Comments Hct (test code = Hct) 32.8 36.0-48.0 [address]12-06 09:53:13 Test Item Value Reference Range Interpretation Comments MCV (test code = MCV) 83.0 80.0-98.0 [place] [address]-12-06 09:53:13 Test Item Value Reference Range Interpretation Comments MCH (test code = MCH) 26.9 pg 27.0-31.0 [place] 633380-12-06 09:53:13 Test Item Value Reference Range Interpretation Comments MCHC (test code = MCHC) 32.4 32.0-36.0 [place] 633380-12-06 09:53:13 Test Item Value Reference Range Interpretation Comments RDW (test code = RDW) 16.5 11.5-14.5 [place] 633380-12-06 09:53:13 Test Item Value Reference Range Interpretation Comments Platelet (test code = Platelet) 157 133-450 [place] 633380-12-06 09:53:13 Test Item Value Reference Range Interpretation Comments MPV (test code = MPV) 7.5 7.4-10.4 [place] 633380-12-06 09:53:13 Test Item Value Reference Range Interpretation Comments Neutrophils # (test code = Neutrophils 7.2 1.5-8.1 #) [id number] 09:53:13 Test Item Value Reference Range Interpretation Comments Lymphocytes # (test code = Lymphocytes 0.9 1.0-5.5 #) [facility] HospitalWszerptHOHACDPHYA6518-46-42 09:53:13 Test Item Value Reference Range Interpretation Comments Monocytes # (test code 0.5 See_Comment [Aut omated message] The = Monocytes #) system which generated this result tra nsmitted reference range : <=0.8. The reference r christiano was not used to int erpret this result as normal/abnormal . [place] 633380-12-06 09:53:13 Test Item Value Reference Range Interpretation Comments Basophils # (test code 0.1 See_Comment [Aut omated message] The = Basophils #) system which generated this result tra nsmitted reference range : <=0.2. The reference r christiano was not used to int erpret this result as normal/abnormal . [facility] HospitalTpvwrgmCCJOALQIRY2805-05-51 09:53:13 Test Item Value Reference Range Interpretation Comments Segs (test code = Segs) 83.0 45.0-75.0 [place] 633380-12-06 09:53:13 Test Item Value Reference Range Interpretation Comments Bands (test code = 0.0 See_Comment [Automat ed message] The Bands) system which ge nerated this result transmit sheba reference range : <=11.0. The reference r christiano was not used to interpr et this result as edy l/abnormal. [facility] HospitalItqbqdzATKRBIXKMX0177-76-65 09:53:13 Test Item Value Reference Range Interpretation Comments Lymphocytes (test code = Lymphocytes) 10.0 20.0-40.0 [place] 633380-12-06 09:53:13 Test Item Value Reference Range Interpretation Comments Monocytes (test code = Monocytes) 6.0 2.0-12.0 [place] [address]-12-06 09:53:13 Test Item Value Reference Range Interpretation Comments Basophils (test code = 1.0 See_Comment [Aut omated message] The Basophils) system which ge nerated this result tra nsmitted reference range : <=1.0. The reference r christiano was not used to int erpret this result as normal/abnormal . [facility] [facility]TOF6995-31-83 09:53:13 Test Item Value Reference Range Interpretation Comments Atypical Lymphs (test code = Atypical 0.0 Lymphs) [place] [address]-12-06 09:53:13 Test Item Value Reference Range Interpretation Comments RBC Morph (test code = Normal (09/05/20 3:53 RBC Morph) AM) [place] [address]-12-06 09:53:13 Test Item Value Reference Range Interpretation Comments Plt Morph (test code = Normal (09/05/20 3:53 Plt Morph) AM) [facility]2020-12-06 09:53:13 Test Item Value Reference Range Interpretation Comments Magnesium Lvl (test code = Magnesium 2.2 1.8-2.4 Lvl) [place] 454360-12-06 09:53:13 Test Item Value Reference Range Interpretation Comments Phosphorus (test code = Phosphorus) 2.9 2.5-4.5 [place] [address]-12-06 09:53:13 Test Item Value Reference Range Interpretation Comments Glucose Lvl (test code = Glucose Lvl) 102 70-99 [place] [address]-12-06 09:53:13 Test Item Value Reference Range Interpretation Comments BUN (test code = BUN) 17 7-[address]12-06 09:53:13 Test Item Value Reference Range Interpretation Comments Creatinine Lvl (test code = Creatinine 1.51 0.50-1.40 Lvl) [address]12-06 09:53:13 Test Item Value Reference Range Interpretation Comments Sodium Lvl (test code = Sodium Lvl) 140 135-145 [address]12-06 09:53:13 Test Item Value Reference Range Interpretation Comments Potassium Lvl (test code = Potassium 3.5 3.5-5.1 Lvl) [address]12-06 09:53:13 Test Item Value Reference Range Interpretation Comments Chloride Lvl (test code = Chloride Lvl) 106 95-109 [address]12-06 09:53:13 Test Item Value Reference Range Interpretation Comments CO2 (test code = CO2) 29 24-[address]12-06 09:53:13 Test Item Value Reference Range Interpretation Comments Calcium Lvl (test code = Calcium Lvl) 8.3 8.5-10.5 [place] [address]-12-06 09:53:13 Test Item Value Reference Range Interpretation Comments AGAP (test code = AGAP) 8.5 10.0-20.0 [address]12-06 09:53:13 Test Item Value Reference Range Interpretation Comments eGFR (test code = eGFR) 33 [place] [address]-12-06 09:53:13 Test Item Value Reference Range Interpretation Comments WBC (test code = WBC) 8.7 3.7-10.4 [place] [address]-12-06 09:53:13 Test Item Value Reference Range Interpretation Comments RBC (test code = RBC) 3.96 4.20-5.[address]12-06 09:53:13 Test Item Value Reference Range Interpretation Comments Hgb (test code = Hgb) 10.7 12.0-16.[address]12-06 09:53:13 Test Item Value Reference Range Interpretation Comments Hct (test code = Hct) 32.8 36.0-48.[address]12-06 09:53:13 Test Item Value Reference Range Interpretation Comments MCV (test code = MCV) 83.0 80.0-98.0 [place] [address]-12-06 09:53:13 Test Item Value Reference Range Interpretation Comments MCH (test code = MCH) 26.9 pg 27.0-31.0 [facility]ErztvmjWWFFYRFMSB0853-81-48 09:53:13 Test Item Value Reference Range Interpretation Comments MCHC (test code = MCHC) 32.4 32.0-36.0 [place] 633380-12-06 09:53:13 Test Item Value Reference Range Interpretation Comments RDW (test code = RDW) 16.5 11.5-14.5 [place] [address]-12-06 09:53:13 Test Item Value Reference Range Interpretation Comments Platelet (test code = Platelet) 157 133-450 [place] [address]-12-06 09:53:13 Test Item Value Reference Range Interpretation Comments MPV (test code = MPV) 7.5 7.4-10.4 [place] 633380-12-06 09:53:13 Test Item Value Reference Range Interpretation Comments Neutrophils # (test code = Neutrophils 7.2 1.5-8.1 #) [facility] HospitalAntpqdgHXYNTWKOEH0220-92-29 09:53:13 Test Item Value Reference Range Interpretation Comments Lymphocytes # (test code = Lymphocytes 0.9 1.0-5.5 #) [facility] HospitalLsuzaqgALKDMTAKGG5267-83-16 09:53:13 Test Item Value Reference Range Interpretation Comments Monocytes # (test code 0.5 See_Comment [Aut omated message] The = Monocytes #) system which generated this result tra nsmitted reference range : <=0.8. The reference r christiano was not used to int erpret this result as normal/abnormal . [place] [address]-12-06 09:53:13 Test Item Value Reference Range Interpretation Comments Basophils # (test code 0.1 See_Comment [Aut omated message] The = Basophils #) system which generated this result tra nsmitted reference range : <=0.2. The reference r christiano was not used to int erpret this result as normal/abnormal . [place] [address]-12-06 09:53:13 Test Item Value Reference Range Interpretation Comments Segs (test code = Segs) 83.0 45.0-75.0 [place] [address]-12-06 09:53:13 Test Item Value Reference Range Interpretation Comments Bands (test code = 0.0 See_Comment [Automat ed message] The Bands) system which ge nerated this result transmit sheba reference range : <=11.0. The reference r christiano was not used to interpr et this result as edy l/abnormal. [place] 633380-12-06 09:53:13 Test Item Value Reference Range Interpretation Comments Lymphocytes (test code = Lymphocytes) 10.0 20.0-40.0 [place] [address]-12-06 09:53:13 Test Item Value Reference Range Interpretation Comments Monocytes (test code = Monocytes) 6.0 2.0-12.0 [place] [address]-12-06 09:53:13 Test Item Value Reference Range Interpretation Comments Basophils (test code = 1.0 See_Comment [Aut omated message] The Basophils) system which ge nerated this result tra nsmitted reference range : <=1.0. The reference r christiano was not used to int erpret this result as normal/abnormal . [facility] HospitalPxrwjyoATEJNAOKOX7725-08-92 09:53:13 Test Item Value Reference Range Interpretation Comments Atypical Lymphs (test code = Atypical 0.0 Lymphs) [place] [address]-12-06 09:53:13 Test Item Value Reference Range Interpretation Comments RBC Morph (test code = Normal (09/05/20 3:53 RBC Morph) AM) [place] 633380-12-06 09:53:13 Test Item Value Reference Range Interpretation Comments Plt Morph (test code = Normal (09/05/20 3:53 Plt Morph) AM) [facility]2020-12-06 09:53:13 Test Item Value Reference Range Interpretation Comments Magnesium Lvl (test code = Magnesium 2.2 1.8-2.4 Lvl) [place] 454360-12-06 09:53:13 Test Item Value Reference Range Interpretation Comments Phosphorus (test code = Phosphorus) 2.9 2.5-4.5 [place] [address]-12-06 09:53:13 Test Item Value Reference Range Interpretation Comments Magnesium Lvl (test code = Magnesium 2.2 1.8-2.4 Lvl) [address]12-06 09:53:13 Test Item Value Reference Range Interpretation Comments Phosphorus (test code = Phosphorus) 2.9 2.5-4.5 [place] [address]-12-06 09:53:13 Test Item Value Reference Range Interpretation Comments Glucose Lvl (test code = Glucose Lvl) 102 70-99 [place] [address]-12-06 09:53:13 Test Item Value Reference Range Interpretation Comments BUN (test code = BUN) 17 7-22 [place] 454360-12-06 09:53:13 Test Item Value Reference Range Interpretation Comments Creatinine Lvl (test code = Creatinine 1.51 0.50-1.40 Lvl) [place] [address]-12-06 09:53:13 Test Item Value Reference Range Interpretation Comments Sodium Lvl (test code = Sodium Lvl) 140 135-145 [place] [address]-12-06 09:53:13 Test Item Value Reference Range Interpretation Comments Glucose Lvl (test code = Glucose Lvl) 102 70-99 [place] 454360-12-06 09:53:13 Test Item Value Reference Range Interpretation Comments Potassium Lvl (test code = Potassium 3.5 3.5-5.1 Lvl) [place] 454360-12-06 09:53:13 Test Item Value Reference Range Interpretation Comments Chloride Lvl (test code = Chloride Lvl) 106 95-109 [place] 454360-12-06 09:53:13 Test Item Value Reference Range Interpretation Comments CO2 (test code = CO2) 29 24-32 [place] 454360-12-06 09:53:13 Test Item Value Reference Range Interpretation Comments Calcium Lvl (test code = Calcium Lvl) 8.3 8.5-10.5 [place] [address]-12-06 09:53:13 Test Item Value Reference Range Interpretation Comments AGAP (test code = AGAP) 8.5 10.0-20.0 [place] 454360-12-06 09:53:13 Test Item Value Reference Range Interpretation Comments eGFR (test code = eGFR) 33 [facility] 09:53:13 Test Item Value Reference Range Interpretation Comments WBC (test code = WBC) 8.7 3.7-10.4 [place] [address]-12-06 09:53:13 Test Item Value Reference Range Interpretation Comments RBC (test code = RBC) 3.96 4.20-5.40 [place] [address]-12-06 09:53:13 Test Item Value Reference Range Interpretation Comments Hgb (test code = Hgb) 10.7 12.0-16.0 [address]12-06 09:53:13 Test Item Value Reference Range Interpretation Comments Hct (test code = Hct) 32.8 36.0-48.0 [facility]2020-12-06 09:53:13 Test Item Value Reference Range Interpretation Comments BUN (test code = BUN) 17 7-22 [place] [address]-12-06 09:53:13 Test Item Value Reference Range Interpretation Comments MCV (test code = MCV) 83.0 80.0-98.0 [place] [address]-12-06 09:53:13 Test Item Value Reference Range Interpretation Comments MCH (test code = MCH) 26.9 pg 27.0-31.0 [place] [address]-12-06 09:53:13 Test Item Value Reference Range Interpretation Comments MCHC (test code = MCHC) 32.4 32.0-36.0 [place] [address]-12-06 09:53:13 Test Item Value Reference Range Interpretation Comments RDW (test code = RDW) 16.5 11.5-14.5 [place] [address]-12-06 09:53:13 Test Item Value Reference Range Interpretation Comments Platelet (test code = Platelet) 157 133-450 [place] [address]-12-06 09:53:13 Test Item Value Reference Range Interpretation Comments MPV (test code = MPV) 7.5 7.4-10.4 [place] [address]-12-06 09:53:13 Test Item Value Reference Range Interpretation Comments Neutrophils # (test code = Neutrophils 7.2 1.5-8.1 #) [place] [address]-12-06 09:53:13 Test Item Value Reference Range Interpretation Comments Lymphocytes # (test code = Lymphocytes 0.9 1.0-5.5 #) [place] [address]-12-06 09:53:13 Test Item Value Reference Range Interpretation Comments Monocytes # (test code 0.5 See_Comment [Aut omated message] The = Monocytes #) system which generated this result tra nsmitted reference range : <=0.8. The reference r christiano was not used to int erpret this result as normal/abnormal . [facility] HospitalVgalgoxQOTYWZNNME3095-10-63 09:53:13 Test Item Value Reference Range Interpretation Comments Basophils # (test code 0.1 See_Comment [Aut omated message] The = Basophils #) system which generated this result tra nsmitted reference range : <=0.2. The reference r christiano was not used to int erpret this result as normal/abnormal . [facility]2020-12-06 09:53:13 Test Item Value Reference Range Interpretation Comments Creatinine Lvl (test code = Creatinine 1.51 0.50-1.40 Lvl) [facility] HospitalDatvrerLSDYGZHNJJ0520-75-17 09:53:13 Test Item Value Reference Range Interpretation Comments Segs (test code = Segs) 83.0 45.0-75.0 [place] [address]-12-06 09:53:13 Test Item Value Reference Range Interpretation Comments Bands (test code = 0.0 See_Comment [Automat ed message] The Bands) system which ge nerated this result transmit sheba reference range : <=11.0. The reference r christiano was not used to interpr et this result as edy l/abnormal. [facility] HospitalGufbhobTWKJYFCVIT7729-61-88 09:53:13 Test Item Value Reference Range Interpretation Comments Lymphocytes (test code = Lymphocytes) 10.0 20.0-40.0 [place] 633380-12-06 09:53:13 Test Item Value Reference Range Interpretation Comments Monocytes (test code = Monocytes) 6.0 2.0-12.0 [place] [address]-12-06 09:53:13 Test Item Value Reference Range Interpretation Comments Basophils (test code = 1.0 See_Comment [Aut omated message] The Basophils) system which ge nerated this result tra nsmitted reference range : <=1.0. The reference r christiano was not used to int erpret this result as normal/abnormal . [place] 633380-12-06 09:53:13 Test Item Value Reference Range Interpretation Comments Atypical Lymphs (test code = Atypical 0.0 Lymphs) [address]12-06 09:53:13 Test Item Value Reference Range Interpretation Comments RBC Morph (test code = Normal (09/05/20 3:53 RBC Morph) AM) [place] [address]-12-06 09:53:13 Test Item Value Reference Range Interpretation Comments Plt Morph (test code = Normal (09/05/20 3:53 Plt Morph) AM) [address]12-06 09:53:13 Test Item Value Reference Range Interpretation Comments Sodium Lvl (test code = Sodium Lvl) 140 135-145 [address]12-06 09:53:13 Test Item Value Reference Range Interpretation Comments Potassium Lvl (test code = Potassium 3.5 3.5-5.1 Lvl) [address]12-06 09:53:13 Test Item Value Reference Range Interpretation Comments Chloride Lvl (test code = Chloride Lvl) 106 95-109 [place] [address]-12-06 09:53:13 Test Item Value Reference Range Interpretation Comments CO2 (test code = CO2) 29 24-32 [address]12-06 09:53:13 Test Item Value Reference Range Interpretation Comments Calcium Lvl (test code = Calcium Lvl) 8.3 8.5-10.5 [place] 454360-12-06 09:53:13 Test Item Value Reference Range Interpretation Comments AGAP (test code = AGAP) 8.5 10.0-20.0 [place] [address]-12-06 09:53:13 Test Item Value Reference Range Interpretation Comments eGFR (test code = eGFR) 33 [place] [address]-12-06 09:53:13 Test Item Value Reference Range Interpretation Comments WBC (test code = WBC) 8.7 3.7-10.4 [place] [address]-12-06 09:53:13 Test Item Value Reference Range Interpretation Comments RBC (test code = RBC) 3.96 4.20-5.[address]12-06 09:53:13 Test Item Value Reference Range Interpretation Comments Hgb (test code = Hgb) 10.7 12.0-16.0 [place] [address]-12-06 09:53:13 Test Item Value Reference Range Interpretation Comments Hct (test code = Hct) 32.8 36.0-48.0 [address]12-06 09:53:13 Test Item Value Reference Range Interpretation Comments MCV (test code = MCV) 83.0 80.0-98.0 [address]12-06 09:53:13 Test Item Value Reference Range Interpretation Comments MCH (test code = MCH) 26.9 pg 27.0-31.0 [address]12-06 09:53:13 Test Item Value Reference Range Interpretation Comments MCHC (test code = MCHC) 32.4 32.0-36.0 [place] [address]-12-06 09:53:13 Test Item Value Reference Range Interpretation Comments RDW (test code = RDW) 16.5 11.5-14.5 [address]12-06 09:53:13 Test Item Value Reference Range Interpretation Comments Platelet (test code = Platelet) 157 133-450 [place] [address]-12-06 09:53:13 Test Item Value Reference Range Interpretation Comments MPV (test code = MPV) 7.5 7.4-10.4 [address]12-06 09:53:13 Test Item Value Reference Range Interpretation Comments Neutrophils # (test code = Neutrophils 7.2 1.5-8.1 #) [address]12-06 09:53:13 Test Item Value Reference Range Interpretation Comments Lymphocytes # (test code = Lymphocytes 0.9 1.0-5.5 #) [address]12-06 09:53:13 Test Item Value Reference Range Interpretation Comments Monocytes # (test code 0.5 See_Comment [Aut omated message] The = Monocytes #) system which generated this result tra nsmitted reference range : <=0.8. The reference r christiano was not used to int erpret this result as normal/abnormal . [place] [address]-12-06 09:53:13 Test Item Value Reference Range Interpretation Comments Basophils # (test code 0.1 See_Comment [Aut omated message] The = Basophils #) system which generated this result tra nsmitted reference range : <=0.2. The reference r christiano was not used to int erpret this result as normal/abnormal . [facility] HospitalMpksajvDOJNNYDRGW8508-50-70 09:53:13 Test Item Value Reference Range Interpretation Comments Segs (test code = Segs) 83.0 45.0-75.0 [place] [address]-12-06 09:53:13 Test Item Value Reference Range Interpretation Comments Bands (test code = 0.0 See_Comment [Automat ed message] The Bands) system which ge nerated this result transmit sheba reference range : <=11.0. The reference r christiano was not used to interpr et this result as edy l/abnormal. [facility] HospitalYyptsndQNKHBHZNEW1050-56-81 09:53:13 Test Item Value Reference Range Interpretation Comments Lymphocytes (test code = Lymphocytes) 10.0 20.0-40.0 [place] [address]-12-06 09:53:13 Test Item Value Reference Range Interpretation Comments Monocytes (test code = Monocytes) 6.0 2.0-12.0 [place] [address]-12-06 09:53:13 Test Item Value Reference Range Interpretation Comments Basophils (test code = 1.0 See_Comment [Aut omated message] The Basophils) system which ge nerated this result tra nsmitted reference range : <=1.0. The reference r christiano was not used to int erpret this result as normal/abnormal . [facility] HospitalGanwfubBWEEQIFJSB1289-79-80 09:53:13 Test Item Value Reference Range Interpretation Comments Atypical Lymphs (test code = Atypical 0.0 Lymphs) [place] [address]-12-06 09:53:13 Test Item Value Reference Range Interpretation Comments RBC Morph (test code = Normal (09/05/20 3:53 RBC Morph) AM) [place] [address]-12-06 09:53:13 Test Item Value Reference Range Interpretation Comments Plt Morph (test code = Normal (09/05/20 3:53 Plt Morph) AM) [facility]2020-12-06 09:53:13 Test Item Value Reference Range Interpretation Comments Magnesium Lvl (test code = Magnesium 2.2 1.8-2.4 Lvl) [place] 454360-12-06 09:53:13 Test Item Value Reference Range Interpretation Comments Phosphorus (test code = Phosphorus) 2.9 2.5-4.5 [place] [address]-12-06 09:53:13 Test Item Value Reference Range Interpretation Comments Glucose Lvl (test code = Glucose Lvl) 102 70-99 [place] [address]-12-06 09:53:13 Test Item Value Reference Range Interpretation Comments BUN (test code = BUN) 17 7-22 [place] [address]-12-06 09:53:13 Test Item Value Reference Range Interpretation Comments Creatinine Lvl (test code = Creatinine 1.51 0.50-1.40 Lvl) [address]12-06 09:53:13 Test Item Value Reference Range Interpretation Comments Sodium Lvl (test code = Sodium Lvl) 140 135-145 [place] [address]-12-06 09:53:13 Test Item Value Reference Range Interpretation Comments Potassium Lvl (test code = Potassium 3.5 3.5-5.1 Lvl) [address]12-06 09:53:13 Test Item Value Reference Range Interpretation Comments Chloride Lvl (test code = Chloride Lvl) 106 95-109 [place] [address]-12-06 09:53:13 Test Item Value Reference Range Interpretation Comments CO2 (test code = CO2) 29 24-32 [place] [address]-12-06 09:53:13 Test Item Value Reference Range Interpretation Comments Calcium Lvl (test code = Calcium Lvl) 8.3 8.5-10.5 [place] [address]-12-06 09:53:13 Test Item Value Reference Range Interpretation Comments AGAP (test code = AGAP) 8.5 10.0-20.0 [place] [address]-12-06 09:53:13 Test Item Value Reference Range Interpretation Comments eGFR (test code = eGFR) 33 [place] [address]-12-06 09:53:13 Test Item Value Reference Range Interpretation Comments WBC (test code = WBC) 8.7 3.7-10.4 [place] [address]-12-06 09:53:13 Test Item Value Reference Range Interpretation Comments RBC (test code = RBC) 3.96 4.20-5.40 [place] [address]-12-06 09:53:13 Test Item Value Reference Range Interpretation Comments Hgb (test code = Hgb) 10.7 12.0-16.0 [place] [address]-12-06 09:53:13 Test Item Value Reference Range Interpretation Comments Hct (test code = Hct) 32.8 36.0-48.0 [place] [address]-12-06 09:53:13 Test Item Value Reference Range Interpretation Comments MCV (test code = MCV) 83.0 80.0-98.0 [place] [address]-12-06 09:53:13 Test Item Value Reference Range Interpretation Comments MCH (test code = MCH) 26.9 pg 27.0-31.0 [place] [address]-12-06 09:53:13 Test Item Value Reference Range Interpretation Comments MCHC (test code = MCHC) 32.4 32.0-36.0 [place] [address]-12-06 09:53:13 Test Item Value Reference Range Interpretation Comments RDW (test code = RDW) 16.5 11.5-14.5 [place] [address]-12-06 09:53:13 Test Item Value Reference Range Interpretation Comments Platelet (test code = Platelet) 157 133-450 [place] [address]-12-06 09:53:13 Test Item Value Reference Range Interpretation Comments MPV (test code = MPV) 7.5 7.4-10.4 [place] [address]-12-06 09:53:13 Test Item Value Reference Range Interpretation Comments Neutrophils # (test code = Neutrophils 7.2 1.5-8.1 #) [facility] HospitalFlczwzyVVMZKGWPGL1793-03-19 09:53:13 Test Item Value Reference Range Interpretation Comments Lymphocytes # (test code = Lymphocytes 0.9 1.0-5.5 #) [place] [address]-12-06 09:53:13 Test Item Value Reference Range Interpretation Comments Monocytes # (test code 0.5 See_Comment [Aut omated message] The = Monocytes #) system which generated this result tra nsmitted reference range : <=0.8. The reference r christiano was not used to int erpret this result as normal/abnormal . [place] [address]-12-06 09:53:13 Test Item Value Reference Range Interpretation Comments Basophils # (test code 0.1 See_Comment [Aut omated message] The = Basophils #) system which generated this result tra nsmitted reference range : <=0.2. The reference r christiano was not used to int erpret this result as normal/abnormal . [facility] HospitalOivqjgiWEDUHPQHDF2665-40-89 09:53:13 Test Item Value Reference Range Interpretation Comments Segs (test code = Segs) 83.0 45.0-75.0 [facility] HospitalQokadjzOUSCVXJZPE3077-45-01 09:53:13 Test Item Value Reference Range Interpretation Comments Bands (test code = 0.0 See_Comment [Automat ed message] The Bands) system which ge nerated this result transmit sheba reference range : <=11.0. The reference r christiano was not used to interpr et this result as edy l/abnormal. [facility] HospitalJinahwqKGERQNYUMW7964-32-78 09:53:13 Test Item Value Reference Range Interpretation Comments Lymphocytes (test code = Lymphocytes) 10.0 20.0-40.0 [facility] HospitalGchrhbvJVYAADYVZT5907-00-13 09:53:13 Test Item Value Reference Range Interpretation Comments Monocytes (test code = Monocytes) 6.0 2.0-12.0 [facility] HospitalHxglbclFWOVJCQZGA2709-12-71 09:53:13 Test Item Value Reference Range Interpretation Comments Basophils (test code = 1.0 See_Comment [Aut omated message] The Basophils) system which ge nerated this result tra nsmitted reference range : <=1.0. The reference r christiano was not used to int erpret this result as normal/abnormal . [facility] HospitalCfodgjjFKIMRDGFVA7339-23-24 09:53:13 Test Item Value Reference Range Interpretation Comments Atypical Lymphs (test code = Atypical 0.0 Lymphs) [facility] HospitalGwubckdLJVLCXJFRC3688-55-70 09:53:13 Test Item Value Reference Range Interpretation Comments RBC Morph (test code = Normal (09/05/20 3:53 RBC Morph) AM) [facility] HospitalMhokbvqNZIUBEKAXW7271-77-78 09:53:13 Test Item Value Reference Range Interpretation Comments Plt Morph (test code = Normal (09/05/20 3:53 Plt Morph) AM) [facility]2020-12-06 09:53:13 Test Item Value Reference Range Interpretation Comments Magnesium Lvl (test code = Magnesium 2.2 1.8-2.4 Lvl) [place] [address]-12-06 09:53:13 Test Item Value Reference Range Interpretation Comments Phosphorus (test code = Phosphorus) 2.9 2.5-4.5 [place] [address]-12-06 09:53:13 Test Item Value Reference Range Interpretation Comments Glucose Lvl (test code = Glucose Lvl) 102 70-99 [address]12-06 09:53:13 Test Item Value Reference Range Interpretation Comments BUN (test code = BUN) 17 7-22 [place] [address]-12-06 09:53:13 Test Item Value Reference Range Interpretation Comments Creatinine Lvl (test code = Creatinine 1.51 0.50-1.40 Lvl) [address]12-06 09:53:13 Test Item Value Reference Range Interpretation Comments Sodium Lvl (test code = Sodium Lvl) 140 135-145 [place] [address]-12-06 09:53:13 Test Item Value Reference Range Interpretation Comments Potassium Lvl (test code = Potassium 3.5 3.5-5.1 Lvl) [place] [address]-12-06 09:53:13 Test Item Value Reference Range Interpretation Comments Chloride Lvl (test code = Chloride Lvl) 106 95-109 [place] [address]-12-06 09:53:13 Test Item Value Reference Range Interpretation Comments CO2 (test code = CO2) 29 24-32 [place] [address]-12-06 09:53:13 Test Item Value Reference Range Interpretation Comments Calcium Lvl (test code = Calcium Lvl) 8.3 8.5-10.5 [place] [address]-12-06 09:53:13 Test Item Value Reference Range Interpretation Comments AGAP (test code = AGAP) 8.5 10.0-20.0 [place] [address]-12-06 09:53:13 Test Item Value Reference Range Interpretation Comments eGFR (test code = eGFR) 33 [place] [address]-12-06 09:53:13 Test Item Value Reference Range Interpretation Comments WBC (test code = WBC) 8.7 3.7-10.4 [place] [address]-12-06 09:53:13 Test Item Value Reference Range Interpretation Comments RBC (test code = RBC) 3.96 4.20-5.40 [facility]XpdoqsqCMIPEMWJVA2848-20-04 09:53:13 Test Item Value Reference Range Interpretation Comments Hgb (test code = Hgb) 10.7 12.0-16.0 [facility] HospitalGjuedqpLUAFAFAOAL3381-38-23 09:53:13 Test Item Value Reference Range Interpretation Comments Hct (test code = Hct) 32.8 36.0-48.0 [facility] HospitalPyvtgbuAGGXQKQTOO7442-28-79 09:53:13 Test Item Value Reference Range Interpretation Comments MCV (test code = MCV) 83.0 80.0-98.0 [place] 633380-12-06 09:53:13 Test Item Value Reference Range Interpretation Comments MCH (test code = MCH) 26.9 pg 27.0-31.0 [facility] HospitalWhsucjyBSKGIRXNCS0419-00-06 09:53:13 Test Item Value Reference Range Interpretation Comments MCHC (test code = MCHC) 32.4 32.0-36.0 [place] 633380-12-06 09:53:13 Test Item Value Reference Range Interpretation Comments RDW (test code = RDW) 16.5 11.5-14.5 [place] 633380-12-06 09:53:13 Test Item Value Reference Range Interpretation Comments Platelet (test code = Platelet) 157 133-450 [facility] HospitalUxveaueCLFBLCPDTW4416-27-51 09:53:13 Test Item Value Reference Range Interpretation Comments MPV (test code = MPV) 7.5 7.4-10.4 [place] 633380-12-06 09:53:13 Test Item Value Reference Range Interpretation Comments Neutrophils # (test code = Neutrophils 7.2 1.5-8.1 #) [place] 633380-12-06 09:53:13 Test Item Value Reference Range Interpretation Comments Lymphocytes # (test code = Lymphocytes 0.9 1.0-5.5 #) [place] [address]-12-06 09:53:13 Test Item Value Reference Range Interpretation Comments Monocytes # (test code 0.5 See_Comment [Aut omated message] The = Monocytes #) system which generated this result tra nsmitted reference range : <=0.8. The reference r christiano was not used to int erpret this result as normal/abnormal . [place] [address]-12-06 09:53:13 Test Item Value Reference Range Interpretation Comments Basophils # (test code 0.1 See_Comment [Aut omated message] The = Basophils #) system which generated this result tra nsmitted reference range : <=0.2. The reference r christiano was not used to int erpret this result as normal/abnormal . [facility] HospitalRnufiiqUSRXWINOCV4023-78-49 09:53:13 Test Item Value Reference Range Interpretation Comments Segs (test code = Segs) 83.0 45.0-75.0 [place] [address]-12-06 09:53:13 Test Item Value Reference Range Interpretation Comments Bands (test code = 0.0 See_Comment [Automat ed message] The Bands) system which ge nerated this result transmit hseba reference range : <=11.0. The reference r christiaon was not used to interpr et this result as edy l/abnormal. [facility] HospitalZkvqcyjFZQATBFWXX7008-63-68 09:53:13 Test Item Value Reference Range Interpretation Comments Lymphocytes (test code = Lymphocytes) 10.0 20.0-40.0 [facility] HospitalTvypxtcIFREQRMZFV1572-13-40 09:53:13 Test Item Value Reference Range Interpretation Comments Monocytes (test code = Monocytes) 6.0 2.0-12.0 [facility] HospitalJlgawywHLKBTQVGAQ3033-44-34 09:53:13 Test Item Value Reference Range Interpretation Comments Basophils (test code = 1.0 See_Comment [Aut omated message] The Basophils) system which ge nerated this result tra nsmitted reference range : <=1.0. The reference r christiano was not used to int erpret this result as normal/abnormal . [facility] HospitalYfultuuKWTTXNJXVR4589-14-69 09:53:13 Test Item Value Reference Range Interpretation Comments Atypical Lymphs (test code = Atypical 0.0 Lymphs) [facility] HospitalMljtbibWWITHAPFEM4970-25-16 09:53:13 Test Item Value Reference Range Interpretation Comments RBC Morph (test code = Normal (09/05/20 3:53 RBC Morph) AM) [facility] HospitalGmpyuqfTQQYWGXNFJ8549-17-48 09:53:13 Test Item Value Reference Range Interpretation Comments Plt Morph (test code = Normal (09/05/20 3:53 Plt Morph) AM) [facility]2020-12-06 09:53:13 Test Item Value Reference Range Interpretation Comments Magnesium Lvl (test code = Magnesium 2.2 1.8-2.4 Lvl) [place] 454360-12-06 09:53:13 Test Item Value Reference Range Interpretation Comments Phosphorus (test code = Phosphorus) 2.9 2.5-4.5 [place] [address]-12-06 09:53:13 Test Item Value Reference Range Interpretation Comments Glucose Lvl (test code = Glucose Lvl) 102 70-99 [place] 454360-12-06 09:53:13 Test Item Value Reference Range Interpretation Comments BUN (test code = BUN) 17 7-22 [place] [address]-12-06 09:53:13 Test Item Value Reference Range Interpretation Comments Creatinine Lvl (test code = Creatinine 1.51 0.50-1.40 Lvl) [place] 454360-12-06 09:53:13 Test Item Value Reference Range Interpretation Comments Sodium Lvl (test code = Sodium Lvl) 140 135-145 [place] 454360-12-06 09:53:13 Test Item Value Reference Range Interpretation Comments Potassium Lvl (test code = Potassium 3.5 3.5-5.1 Lvl) [place] 454360-12-06 09:53:13 Test Item Value Reference Range Interpretation Comments Chloride Lvl (test code = Chloride Lvl) 106 95-109 [place] 454360-12-06 09:53:13 Test Item Value Reference Range Interpretation Comments CO2 (test code = CO2) 29 24-32 [place] 454360-12-06 09:53:13 Test Item Value Reference Range Interpretation Comments Calcium Lvl (test code = Calcium Lvl) 8.3 8.5-10.5 [place] 454360-12-06 09:53:13 Test Item Value Reference Range Interpretation Comments AGAP (test code = AGAP) 8.5 10.0-20.0 [place] 454360-12-06 09:53:13 Test Item Value Reference Range Interpretation Comments eGFR (test code = eGFR) 33 [place] 633380-12-06 09:53:13 Test Item Value Reference Range Interpretation Comments WBC (test code = WBC) 8.7 3.7-10.[address]12-06 09:53:13 Test Item Value Reference Range Interpretation Comments RBC (test code = RBC) 3.96 4.20-5.[address]12-06 09:53:13 Test Item Value Reference Range Interpretation Comments Hgb (test code = Hgb) 10.7 12.0-16.[address]12-06 09:53:13 Test Item Value Reference Range Interpretation Comments Hct (test code = Hct) 32.8 36.0-48.0 [address]12-06 09:53:13 Test Item Value Reference Range Interpretation Comments Magnesium Lvl (test code = Magnesium 2.2 1.8-2.4 Lvl) [address]12-06 09:53:13 Test Item Value Reference Range Interpretation Comments Phosphorus (test code = Phosphorus) 2.9 2.5-4.5 [address]12-06 09:53:13 Test Item Value Reference Range Interpretation Comments Glucose Lvl (test code = Glucose Lvl) 102 70-99 [place] [address]-12-06 09:53:13 Test Item Value Reference Range Interpretation Comments BUN (test code = BUN) 17 7-22 [place] [address]-12-06 09:53:13 Test Item Value Reference Range Interpretation Comments Creatinine Lvl (test code = Creatinine 1.51 0.50-1.40 Lvl) [address]12-06 09:53:13 Test Item Value Reference Range Interpretation Comments MCV (test code = MCV) 83.0 80.0-98.0 [place] [address]-12-06 09:53:13 Test Item Value Reference Range Interpretation Comments Sodium Lvl (test code = Sodium Lvl) 140 135-145 [address]12-06 09:53:13 Test Item Value Reference Range Interpretation Comments Potassium Lvl (test code = Potassium 3.5 3.5-5.1 Lvl) [place] [address]-12-06 09:53:13 Test Item Value Reference Range Interpretation Comments Chloride Lvl (test code = Chloride Lvl) 106 95-109 [place] [address]-12-06 09:53:13 Test Item Value Reference Range Interpretation Comments CO2 (test code = CO2) 29 24-32 [facility]2020-12-06 09:53:13 Test Item Value Reference Range Interpretation Comments Calcium Lvl (test code = Calcium Lvl) 8.3 8.5-10.5 [place] [address]-12-06 09:53:13 Test Item Value Reference Range Interpretation Comments AGAP (test code = AGAP) 8.5 10.0-20.0 [place] 454360-12-06 09:53:13 Test Item Value Reference Range Interpretation Comments eGFR (test code = eGFR) 33 [place] [address]-12-06 09:53:13 Test Item Value Reference Range Interpretation Comments WBC (test code = WBC) 8.7 3.7-10.4 [place] [address]-12-06 09:53:13 Test Item Value Reference Range Interpretation Comments RBC (test code = RBC) 3.96 4.20-5.40 [place] [address]-12-06 09:53:13 Test Item Value Reference Range Interpretation Comments Hgb (test code = Hgb) 10.7 12.0-16.0 [place] [address]-12-06 09:53:13 Test Item Value Reference Range Interpretation Comments MCH (test code = MCH) 26.9 pg 27.0-31.0 [place] 633380-12-06 09:53:13 Test Item Value Reference Range Interpretation Comments Hct (test code = Hct) 32.8 36.0-48.0 [place] [address]-12-06 09:53:13 Test Item Value Reference Range Interpretation Comments MCV (test code = MCV) 83.0 80.0-98.0 [place] [address]-12-06 09:53:13 Test Item Value Reference Range Interpretation Comments MCH (test code = MCH) 26.9 pg 27.0-31.0 [place] [address]-12-06 09:53:13 Test Item Value Reference Range Interpretation Comments MCHC (test code = MCHC) 32.4 32.0-36.0 [place] [address]-12-06 09:53:13 Test Item Value Reference Range Interpretation Comments RDW (test code = RDW) 16.5 11.5-14.5 [place] [address]-12-06 09:53:13 Test Item Value Reference Range Interpretation Comments Platelet (test code = Platelet) 157 133-450 [place] [address]-12-06 09:53:13 Test Item Value Reference Range Interpretation Comments MPV (test code = MPV) 7.5 7.4-10.4 [place] [address]-12-06 09:53:13 Test Item Value Reference Range Interpretation Comments Neutrophils # (test code = Neutrophils 7.2 1.5-8.1 #) [place] [address]-12-06 09:53:13 Test Item Value Reference Range Interpretation Comments Lymphocytes # (test code = Lymphocytes 0.9 1.0-5.5 #) [place] [address]-12-06 09:53:13 Test Item Value Reference Range Interpretation Comments Monocytes # (test code 0.5 See_Comment [Aut omated message] The = Monocytes #) system which generated this result tra nsmitted reference range : <=0.8. The reference r christiano was not used to int erpret this result as normal/abnormal . [place] [address]-12-06 09:53:13 Test Item Value Reference Range Interpretation Comments MCHC (test code = MCHC) 32.4 32.0-36.0 [place] [address]-12-06 09:53:13 Test Item Value Reference Range Interpretation Comments Basophils # (test code 0.1 See_Comment [Aut omated message] The = Basophils #) system which generated this result tra nsmitted reference range : <=0.2. The reference r christiano was not used to int erpret this result as normal/abnormal . [place] [address]-12-06 09:53:13 Test Item Value Reference Range Interpretation Comments Segs (test code = Segs) 83.0 45.0-75.0 [place] [address]-12-06 09:53:13 Test Item Value Reference Range Interpretation Comments Bands (test code = 0.0 See_Comment [Automat ed message] The Bands) system which ge nerated this result transmit sheba reference range : <=11.0. The reference r christiano was not used to interpr et this result as edy l/abnormal. [place] [address]-12-06 09:53:13 Test Item Value Reference Range Interpretation Comments Lymphocytes (test code = Lymphocytes) 10.0 20.0-40.0 [facility] HospitalJhkchshRAOSQJRWMU2084-28-71 09:53:13 Test Item Value Reference Range Interpretation Comments Monocytes (test code = Monocytes) 6.0 2.0-12.0 [place] 633380-12-06 09:53:13 Test Item Value Reference Range Interpretation Comments Basophils (test code = 1.0 See_Comment [Aut omated message] The Basophils) system which ge nerated this result tra nsmitted reference range : <=1.0. The reference r christiano was not used to int erpret this result as normal/abnormal . [facility] HospitalCwfpdfsXMIHEUIRRJ9016-24-15 09:53:13 Test Item Value Reference Range Interpretation Comments Atypical Lymphs (test code = Atypical 0.0 Lymphs) [place] 633380-12-06 09:53:13 Test Item Value Reference Range Interpretation Comments RBC Morph (test code = Normal (09/05/20 3:53 RBC Morph) AM) [facility] HospitalJkdevqnCMJWHEDTRB6693-99-24 09:53:13 Test Item Value Reference Range Interpretation Comments Plt Morph (test code = Normal (09/05/20 3:53 Plt Morph) AM) [facility] HospitalEcqtdznTZNSTFEZXR1926-19-00 09:53:13 Test Item Value Reference Range Interpretation Comments RDW (test code = RDW) 16.5 11.5-14.5 [place] 633380-12-06 09:53:13 Test Item Value Reference Range Interpretation Comments Platelet (test code = Platelet) 157 133-450 [facility] HospitalVskhpdzYSFUEGGGBI1373-30-87 09:53:13 Test Item Value Reference Range Interpretation Comments MPV (test code = MPV) 7.5 7.4-10.4 [place] 633380-12-06 09:53:13 Test Item Value Reference Range Interpretation Comments Neutrophils # (test code = Neutrophils 7.2 1.5-8.1 #) [facility] HospitalXtqnjltZUCOTKJQQU1947-40-51 09:53:13 Test Item Value Reference Range Interpretation Comments Lymphocytes # (test code = Lymphocytes 0.9 1.0-5.5 #) [facility] HospitalJonopibRKPJUWTHUS2685-26-04 09:53:13 Test Item Value Reference Range Interpretation Comments Monocytes # (test code 0.5 See_Comment [Aut omated message] The = Monocytes #) system which generated this result tra nsmitted reference range : <=0.8. The reference r christiano was not used to int erpret this result as normal/abnormal . [place] [address]-12-06 09:53:13 Test Item Value Reference Range Interpretation Comments Basophils # (test code 0.1 See_Comment [Aut omated message] The = Basophils #) system which generated this result tra nsmitted reference range : <=0.2. The reference r christiano was not used to int erpret this result as normal/abnormal . [place] [address]-12-06 09:53:13 Test Item Value Reference Range Interpretation Comments Segs (test code = Segs) 83.0 45.0-75.0 [place] [address]-12-06 09:53:13 Test Item Value Reference Range Interpretation Comments Bands (test code = 0.0 See_Comment [Automat ed message] The Bands) system which ge nerated this result transmit sheba reference range : <=11.0. The reference r christiano was not used to interpr et this result as edy l/abnormal. [facility] HospitalVcopqzgMPUVCWZRFM3170-87-02 09:53:13 Test Item Value Reference Range Interpretation Comments Lymphocytes (test code = Lymphocytes) 10.0 20.0-40.0 [place] [address]-12-06 09:53:13 Test Item Value Reference Range Interpretation Comments Monocytes (test code = Monocytes) 6.0 2.0-12.0 [place] [address]-12-06 09:53:13 Test Item Value Reference Range Interpretation Comments Basophils (test code = 1.0 See_Comment [Aut omated message] The Basophils) system which ge nerated this result tra nsmitted reference range : <=1.0. The reference r christiano was not used to int erpret this result as normal/abnormal . [place] 633380-12-06 09:53:13 Test Item Value Reference Range Interpretation Comments Atypical Lymphs (test code = Atypical 0.0 Lymphs) [place] [address]-12-06 09:53:13 Test Item Value Reference Range Interpretation Comments RBC Morph (test code = Normal (09/05/20 3:53 RBC Morph) AM) [facility]339[facility] 09:53:13 Test Item Value Reference Range Interpretation Comments Plt Morph (test code = Normal (09/05/20 3:53 Plt Morph) AM) [facility]2020-12-06 09:53:13 Test Item Value Reference Range Interpretation Comments Magnesium Lvl (test code = Magnesium 2.2 1.8-2.4 Lvl) [place] 454360-12-06 09:53:13 Test Item Value Reference Range Interpretation Comments Phosphorus (test code = Phosphorus) 2.9 2.5-4.5 [place] [address]-12-06 09:53:13 Test Item Value Reference Range Interpretation Comments Glucose Lvl (test code = Glucose Lvl) 102 70-99 [place] 454360-12-06 09:53:13 Test Item Value Reference Range Interpretation Comments BUN (test code = BUN) 17 7-22 [place] 454360-12-06 09:53:13 Test Item Value Reference Range Interpretation Comments Creatinine Lvl (test code = Creatinine 1.51 0.50-1.40 Lvl) [place] 454360-12-06 09:53:13 Test Item Value Reference Range Interpretation Comments Sodium Lvl (test code = Sodium Lvl) 140 135-145 [place] 454360-12-06 09:53:13 Test Item Value Reference Range Interpretation Comments Potassium Lvl (test code = Potassium 3.5 3.5-5.1 Lvl) [place] 454360-12-06 09:53:13 Test Item Value Reference Range Interpretation Comments Chloride Lvl (test code = Chloride Lvl) 106 95-109 [place] 454360-12-06 09:53:13 Test Item Value Reference Range Interpretation Comments CO2 (test code = CO2) 29 24-32 [place] 454360-12-06 09:53:13 Test Item Value Reference Range Interpretation Comments Calcium Lvl (test code = Calcium Lvl) 8.3 8.5-10.5 [place] 454360-12-06 09:53:13 Test Item Value Reference Range Interpretation Comments AGAP (test code = AGAP) 8.5 10.0-20.0 [place] 454360-12-06 09:53:13 Test Item Value Reference Range Interpretation Comments eGFR (test code = eGFR) 33 [place] [address]-12-06 09:53:13 Test Item Value Reference Range Interpretation Comments WBC (test code = WBC) 8.7 3.7-10.4 [place] [address]-12-06 09:53:13 Test Item Value Reference Range Interpretation Comments RBC (test code = RBC) 3.96 4.20-5.40 [place] [address]-12-06 09:53:13 Test Item Value Reference Range Interpretation Comments Hgb (test code = Hgb) 10.7 12.0-16.0 [place] [address]-12-06 09:53:13 Test Item Value Reference Range Interpretation Comments Hct (test code = Hct) 32.8 36.0-48.0 [place] [address]-12-06 09:53:13 Test Item Value Reference Range Interpretation Comments MCV (test code = MCV) 83.0 80.0-98.0 [place] [address]-12-06 09:53:13 Test Item Value Reference Range Interpretation Comments MCH (test code = MCH) 26.9 pg 27.0-31.0 [place] [address]-12-06 09:53:13 Test Item Value Reference Range Interpretation Comments MCHC (test code = MCHC) 32.4 32.0-36.0 [place] [address]-12-06 09:53:13 Test Item Value Reference Range Interpretation Comments RDW (test code = RDW) 16.5 11.5-14.5 [place] [address]-12-06 09:53:13 Test Item Value Reference Range Interpretation Comments Platelet (test code = Platelet) 157 133-450 [place] [address]-12-06 09:53:13 Test Item Value Reference Range Interpretation Comments MPV (test code = MPV) 7.5 7.4-10.4 [place] [address]-12-06 09:53:13 Test Item Value Reference Range Interpretation Comments Neutrophils # (test code = Neutrophils 7.2 1.5-8.1 #) [place] [address]-12-06 09:53:13 Test Item Value Reference Range Interpretation Comments Lymphocytes # (test code = Lymphocytes 0.9 1.0-5.5 #) [facility] HospitalHpotncmQFVDKFNEHG2872-57-43 09:53:13 Test Item Value Reference Range Interpretation Comments Monocytes # (test code 0.5 See_Comment [Aut omated message] The = Monocytes #) system which generated this result tra nsmitted reference range : <=0.8. The reference r christiano was not used to int erpret this result as normal/abnormal . [place]33380-12-06 09:53:13 Test Item Value Reference Range Interpretation Comments Basophils # (test code 0.1 See_Comment [Aut omated message] The = Basophils #) system which generated this result tra nsmitted reference range : <=0.2. The reference r christiano was not used to int erpret this result as normal/abnormal . [facility] HospitalBsafuqwSVLYWRENFO8314-20-61 09:53:13 Test Item Value Reference Range Interpretation Comments Segs (test code = Segs) 83.0 45.0-75.0 [place]33380-12-06 09:53:13 Test Item Value Reference Range Interpretation Comments Bands (test code = 0.0 See_Comment [Automat ed message] The Bands) system which ge nerated this result transmit sheba reference range : <=11.0. The reference r christiano was not used to interpr et this result as edy l/abnormal. [facility] HospitalJldlxgaSAAMXKATKF6512-76-07 09:53:13 Test Item Value Reference Range Interpretation Comments Lymphocytes (test code = Lymphocytes) 10.0 20.0-40.0 [place]33380-12-06 09:53:13 Test Item Value Reference Range Interpretation Comments Monocytes (test code = Monocytes) 6.0 2.0-12.0 [place] [address]-12-06 09:53:13 Test Item Value Reference Range Interpretation Comments Basophils (test code = 1.0 See_Comment [Aut omated message] The Basophils) system which ge nerated this result tra nsmitted reference range : <=1.0. The reference r christiano was not used to int erpret this result as normal/abnormal . [facility] HospitalTzhgfrtCTCXRBSYUL0164-17-02 09:53:13 Test Item Value Reference Range Interpretation Comments Atypical Lymphs (test code = Atypical 0.0 Lymphs) [place] 633380-12-06 09:53:13 Test Item Value Reference Range Interpretation Comments RBC Morph (test code = Normal (09/05/20 3:53 RBC Morph) AM) [place] [address]-12-06 09:53:13 Test Item Value Reference Range Interpretation Comments Plt Morph (test code = Normal (09/05/20 3:53 Plt Morph) AM) [place] [address]-12-06 09:53:13 Test Item Value Reference Range Interpretation Comments Magnesium Lvl (test code = Magnesium 2.2 1.8-2.4 Lvl) [place] [address]-12-06 09:53:13 Test Item Value Reference Range Interpretation Comments Phosphorus (test code = Phosphorus) 2.9 2.5-4.5 [place] [address]-12-06 09:53:13 Test Item Value Reference Range Interpretation Comments Glucose Lvl (test code = Glucose Lvl) 102 70-99 [place] [address]-12-06 09:53:13 Test Item Value Reference Range Interpretation Comments BUN (test code = BUN) 17 7-22 [place] [address]-12-06 09:53:13 Test Item Value Reference Range Interpretation Comments Creatinine Lvl (test code = Creatinine 1.51 0.50-1.40 Lvl) [place] [address]-12-06 09:53:13 Test Item Value Reference Range Interpretation Comments Sodium Lvl (test code = Sodium Lvl) 140 135-145 [place] [address]-12-06 09:53:13 Test Item Value Reference Range Interpretation Comments Potassium Lvl (test code = Potassium 3.5 3.5-5.1 Lvl) [place] [address]-12-06 09:53:13 Test Item Value Reference Range Interpretation Comments Chloride Lvl (test code = Chloride Lvl) 106 95-109 [place] [address]-12-06 09:53:13 Test Item Value Reference Range Interpretation Comments CO2 (test code = CO2) 29 24-32 [place] [address]-12-06 09:53:13 Test Item Value Reference Range Interpretation Comments Calcium Lvl (test code = Calcium Lvl) 8.3 8.5-10.5 [place] [address]-12-06 09:53:13 Test Item Value Reference Range Interpretation Comments AGAP (test code = AGAP) 8.5 10.0-20.0 [facility]2020-12-06 09:53:13 Test Item Value Reference Range Interpretation Comments eGFR (test code = eGFR) 33 [facility] HospitalYnjvcqbEYLWGMHTCM1766-68-48 09:53:13 Test Item Value Reference Range Interpretation Comments WBC (test code = WBC) 8.7 3.7-10.4 [facility] HospitalBuabsjnIIDHLNIQTI0233-81-10 09:53:13 Test Item Value Reference Range Interpretation Comments RBC (test code = RBC) 3.96 4.20-5.40 [place] [address]-12-06 09:53:13 Test Item Value Reference Range Interpretation Comments Hgb (test code = Hgb) 10.7 12.0-16.0 [place] 633380-12-06 09:53:13 Test Item Value Reference Range Interpretation Comments Hct (test code = Hct) 32.8 36.0-48.0 [facility] HospitalHupnydvLJSLUMQTNF1353-58-58 09:53:13 Test Item Value Reference Range Interpretation Comments MCV (test code = MCV) 83.0 80.0-98.0 [facility] HospitalQdqqrfyYYYONXWWLR9494-49-75 09:53:13 Test Item Value Reference Range Interpretation Comments MCH (test code = MCH) 26.9 pg 27.0-31.0 [facility] HospitalAbzzqxiWGZIEFXJRQ5568-20-78 09:53:13 Test Item Value Reference Range Interpretation Comments MCHC (test code = MCHC) 32.4 32.0-36.0 [facility] HospitalSnawgjrAYYLJNFUEH7988-78-34 09:53:13 Test Item Value Reference Range Interpretation Comments RDW (test code = RDW) 16.5 11.5-14.5 [place] [address]-12-06 09:53:13 Test Item Value Reference Range Interpretation Comments Platelet (test code = Platelet) 157 133-450 [facility] HospitalXnmtahwZZQCTNSDSP5250-37-13 09:53:13 Test Item Value Reference Range Interpretation Comments MPV (test code = MPV) 7.5 7.4-10.4 [facility] [facility]34[facility] 09:53:13 Test Item Value Reference Range Interpretation Comments Neutrophils # (test code = Neutrophils 7.2 1.5-8.1 #) [address]12-06 09:53:13 Test Item Value Reference Range Interpretation Comments Lymphocytes # (test code = Lymphocytes 0.9 1.0-5.5 #) [place] [address]-12-06 09:53:13 Test Item Value Reference Range Interpretation Comments Monocytes # (test code 0.5 See_Comment [Aut omated message] The = Monocytes #) system which generated this result tra nsmitted reference range : <=0.8. The reference r christiano was not used to int erpret this result as normal/abnormal . [place] [address]-12-06 09:53:13 Test Item Value Reference Range Interpretation Comments Basophils # (test code 0.1 See_Comment [Aut omated message] The = Basophils #) system which generated this result tra nsmitted reference range : <=0.2. The reference r christiano was not used to int erpret this result as normal/abnormal . [place] [address]-12-06 09:53:13 Test Item Value Reference Range Interpretation Comments Segs (test code = Segs) 83.0 45.0-75.0 [place] [address]-12-06 09:53:13 Test Item Value Reference Range Interpretation Comments Bands (test code = 0.0 See_Comment [Automat ed message] The Bands) system which ge nerated this result transmit sheba reference range : <=11.0. The reference r christiano was not used to interpr et this result as edy l/abnormal. [place] 633380-12-06 09:53:13 Test Item Value Reference Range Interpretation Comments Lymphocytes (test code = Lymphocytes) 10.0 20.0-40.0 [place] [address]-12-06 09:53:13 Test Item Value Reference Range Interpretation Comments Monocytes (test code = Monocytes) 6.0 2.0-12.0 [place] [address]-12-06 09:53:13 Test Item Value Reference Range Interpretation Comments Basophils (test code = 1.0 See_Comment [Aut omated message] The Basophils) system which ge nerated this result tra nsmitted reference range : <=1.0. The reference r christiano was not used to int erpret this result as normal/abnormal . [place] [address]-12-06 09:53:13 Test Item Value Reference Range Interpretation Comments Atypical Lymphs (test code = Atypical 0.0 Lymphs) [place] [address]-12-06 09:53:13 Test Item Value Reference Range Interpretation Comments RBC Morph (test code = Normal (09/05/20 3:53 RBC Morph) AM) [place] [address]-12-06 09:53:13 Test Item Value Reference Range Interpretation Comments Plt Morph (test code = Normal (09/05/20 3:53 Plt Morph) AM) [place] [address]-12-06 09:53:13 Test Item Value Reference Range Interpretation Comments Magnesium Lvl (test code = Magnesium 2.2 1.8-2.4 Lvl) [address]12-06 09:53:13 Test Item Value Reference Range Interpretation Comments Phosphorus (test code = Phosphorus) 2.9 2.5-4.5 [place] [address]-12-06 09:53:13 Test Item Value Reference Range Interpretation Comments Glucose Lvl (test code = Glucose Lvl) 102 70-99 [place] [address]-12-06 09:53:13 Test Item Value Reference Range Interpretation Comments BUN (test code = BUN) 17 7-22 [place] [address]-12-06 09:53:13 Test Item Value Reference Range Interpretation Comments Creatinine Lvl (test code = Creatinine 1.51 0.50-1.40 Lvl) [place] [address]-12-06 09:53:13 Test Item Value Reference Range Interpretation Comments Sodium Lvl (test code = Sodium Lvl) 140 135-145 [place] [address]-12-06 09:53:13 Test Item Value Reference Range Interpretation Comments Potassium Lvl (test code = Potassium 3.5 3.5-5.1 Lvl) [place] [address]-12-06 09:53:13 Test Item Value Reference Range Interpretation Comments Chloride Lvl (test code = Chloride Lvl) 106 95-109 [place] 454360-12-06 09:53:13 Test Item Value Reference Range Interpretation Comments CO2 (test code = CO2) 29 24-32 [place] [address]-12-06 09:53:13 Test Item Value Reference Range Interpretation Comments Calcium Lvl (test code = Calcium Lvl) 8.3 8.5-10.5 [place] 454360-12-06 09:53:13 Test Item Value Reference Range Interpretation Comments AGAP (test code = AGAP) 8.5 10.0-20.0 [place] 454360-12-06 09:53:13 Test Item Value Reference Range Interpretation Comments eGFR (test code = eGFR) 33 [place] [address]-12-06 09:53:13 Test Item Value Reference Range Interpretation Comments WBC (test code = WBC) 8.7 3.7-10.4 [place] [address]-12-06 09:53:13 Test Item Value Reference Range Interpretation Comments RBC (test code = RBC) 3.96 4.20-5.40 [place] [address]-12-06 09:53:13 Test Item Value Reference Range Interpretation Comments Hgb (test code = Hgb) 10.7 12.0-16.[address]12-06 09:53:13 Test Item Value Reference Range Interpretation Comments Hct (test code = Hct) 32.8 36.0-48.0 [place] [address]-12-06 09:53:13 Test Item Value Reference Range Interpretation Comments MCV (test code = MCV) 83.0 80.0-98.0 [place] [address]-12-06 09:53:13 Test Item Value Reference Range Interpretation Comments MCH (test code = MCH) 26.9 pg 27.0-31.0 [place] [address]-12-06 09:53:13 Test Item Value Reference Range Interpretation Comments MCHC (test code = MCHC) 32.4 32.0-36.0 [place] [address]-12-06 09:53:13 Test Item Value Reference Range Interpretation Comments RDW (test code = RDW) 16.5 11.5-14.5 [place] [address]-12-06 09:53:13 Test Item Value Reference Range Interpretation Comments Platelet (test code = Platelet) 157 133-450 [place] [address]-12-06 09:53:13 Test Item Value Reference Range Interpretation Comments MPV (test code = MPV) 7.5 7.4-10.4 [place] [address]-12-06 09:53:13 Test Item Value Reference Range Interpretation Comments Neutrophils # (test code = Neutrophils 7.2 1.5-8.1 #) [facility]OpsguczROOXAOFUNB7846-89-94 09:53:13 Test Item Value Reference Range Interpretation Comments Lymphocytes # (test code = Lymphocytes 0.9 1.0-5.5 #) [place] [address]-12-06 09:53:13 Test Item Value Reference Range Interpretation Comments Monocytes # (test code 0.5 See_Comment [Aut omated message] The = Monocytes #) system which generated this result tra nsmitted reference range : <=0.8. The reference r christiano was not used to int erpret this result as normal/abnormal . [place] [address]-12-06 09:53:13 Test Item Value Reference Range Interpretation Comments Basophils # (test code 0.1 See_Comment [Aut omated message] The = Basophils #) system which generated this result tra nsmitted reference range : <=0.2. The reference r christiano was not used to int erpret this result as normal/abnormal . [facility] HospitalVgjkpfhLPAQPGKIDQ6247-44-23 09:53:13 Test Item Value Reference Range Interpretation Comments Segs (test code = Segs) 83.0 45.0-75.0 [place] [address]-12-06 09:53:13 Test Item Value Reference Range Interpretation Comments Bands (test code = 0.0 See_Comment [Automat ed message] The Bands) system which ge nerated this result transmit sheba reference range : <=11.0. The reference r christiano was not used to interpr et this result as edy l/abnormal. [facility] HospitalBlkjjvtJWDYNOFMAU8817-04-68 09:53:13 Test Item Value Reference Range Interpretation Comments Lymphocytes (test code = Lymphocytes) 10.0 20.0-40.0 [place] [address]-12-06 09:53:13 Test Item Value Reference Range Interpretation Comments Monocytes (test code = Monocytes) 6.0 2.0-12.0 [place] [address]-12-06 09:53:13 Test Item Value Reference Range Interpretation Comments Basophils (test code = 1.0 See_Comment [Aut omated message] The Basophils) system which ge nerated this result tra nsmitted reference range : <=1.0. The reference r christiano was not used to int erpret this result as normal/abnormal . [place] [address]-12-06 09:53:13 Test Item Value Reference Range Interpretation Comments Atypical Lymphs (test code = Atypical 0.0 Lymphs) [place] [address]-12-06 09:53:13 Test Item Value Reference Range Interpretation Comments RBC Morph (test code = Normal (09/05/20 3:53 RBC Morph) AM) [place] [address]-12-06 09:53:13 Test Item Value Reference Range Interpretation Comments Plt Morph (test code = Normal (09/05/20 3:53 Plt Morph) AM) [place] [address]-12-06 09:53:13 Test Item Value Reference Range Interpretation Comments Magnesium Lvl (test code = Magnesium 2.2 1.8-2.4 Lvl) [place] [address]-12-06 09:53:13 Test Item Value Reference Range Interpretation Comments Phosphorus (test code = Phosphorus) 2.9 2.5-4.5 [place] [address]-12-06 09:53:13 Test Item Value Reference Range Interpretation Comments Glucose Lvl (test code = Glucose Lvl) 102 70-99 [place] 454360-12-06 09:53:13 Test Item Value Reference Range Interpretation Comments BUN (test code = BUN) 17 7-22 [place] 454360-12-06 09:53:13 Test Item Value Reference Range Interpretation Comments Creatinine Lvl (test code = Creatinine 1.51 0.50-1.40 Lvl) [place] 454360-12-06 09:53:13 Test Item Value Reference Range Interpretation Comments Sodium Lvl (test code = Sodium Lvl) 140 135-145 [place] [address]-12-06 09:53:13 Test Item Value Reference Range Interpretation Comments Potassium Lvl (test code = Potassium 3.5 3.5-5.1 Lvl) [place] 454360-12-06 09:53:13 Test Item Value Reference Range Interpretation Comments Chloride Lvl (test code = Chloride Lvl) 106 95-109 [place] [address]-12-06 09:53:13 Test Item Value Reference Range Interpretation Comments CO2 (test code = CO2) 29 24-32 [place] [address]-12-06 09:53:13 Test Item Value Reference Range Interpretation Comments Calcium Lvl (test code = Calcium Lvl) 8.3 8.5-10.5 [place] 454360-12-06 09:53:13 Test Item Value Reference Range Interpretation Comments AGAP (test code = AGAP) 8.5 10.0-20.0 [place] 454360-12-06 09:53:13 Test Item Value Reference Range Interpretation Comments eGFR (test code = eGFR) 33 [place] [address]-12-06 09:53:13 Test Item Value Reference Range Interpretation Comments WBC (test code = WBC) 8.7 3.7-10.4 [place] [address]-12-06 09:53:13 Test Item Value Reference Range Interpretation Comments RBC (test code = RBC) 3.96 4.20-5.40 [place] [address]-12-06 09:53:13 Test Item Value Reference Range Interpretation Comments Hgb (test code = Hgb) 10.7 12.0-16.0 [place] [address]-12-06 09:53:13 Test Item Value Reference Range Interpretation Comments Hct (test code = Hct) 32.8 36.0-48.0 [place] [address]-12-06 09:53:13 Test Item Value Reference Range Interpretation Comments MCV (test code = MCV) 83.0 80.0-98.0 [place] [address]-12-06 09:53:13 Test Item Value Reference Range Interpretation Comments MCH (test code = MCH) 26.9 pg 27.0-31.0 [place] [address]-12-06 09:53:13 Test Item Value Reference Range Interpretation Comments MCHC (test code = MCHC) 32.4 32.0-36.0 [place] [address]-12-06 09:53:13 Test Item Value Reference Range Interpretation Comments RDW (test code = RDW) 16.5 11.5-14.5 [place] 633380-12-06 09:53:13 Test Item Value Reference Range Interpretation Comments Platelet (test code = Platelet) 157 133-450 [place] [address]-12-06 09:53:13 Test Item Value Reference Range Interpretation Comments MPV (test code = MPV) 7.5 7.4-10.4 [place] [address]-12-06 09:53:13 Test Item Value Reference Range Interpretation Comments Neutrophils # (test code = Neutrophils 7.2 1.5-8.1 #) [facility] HospitalXjuolwbKCIBPXBHOC6631-75-37 09:53:13 Test Item Value Reference Range Interpretation Comments Lymphocytes # (test code = Lymphocytes 0.9 1.0-5.5 #) [facility] HospitalMlnzgagQFFETIXSQF7869-48-31 09:53:13 Test Item Value Reference Range Interpretation Comments Monocytes # (test code 0.5 See_Comment [Aut omated message] The = Monocytes #) system which generated this result tra nsmitted reference range : <=0.8. The reference r christiano was not used to int erpret this result as normal/abnormal . [place] [address]-12-06 09:53:13 Test Item Value Reference Range Interpretation Comments Basophils # (test code 0.1 See_Comment [Aut omated message] The = Basophils #) system which generated this result tra nsmitted reference range : <=0.2. The reference r christiano was not used to int erpret this result as normal/abnormal . [facility] HospitalXaeuzteYFCWFDRQRJ5813-91-06 09:53:13 Test Item Value Reference Range Interpretation Comments Segs (test code = Segs) 83.0 45.0-75.0 [place] [address]-12-06 09:53:13 Test Item Value Reference Range Interpretation Comments Bands (test code = 0.0 See_Comment [Automat ed message] The Bands) system which ge nerated this result transmit sheba reference range : <=11.0. The reference r christiano was not used to interpr et this result as edy l/abnormal. [place] 633380-12-06 09:53:13 Test Item Value Reference Range Interpretation Comments Lymphocytes (test code = Lymphocytes) 10.0 20.0-40.0 [place] [address]-12-06 09:53:13 Test Item Value Reference Range Interpretation Comments Monocytes (test code = Monocytes) 6.0 2.0-12.0 [place] [address]-12-06 09:53:13 Test Item Value Reference Range Interpretation Comments Basophils (test code = 1.0 See_Comment [Aut omated message] The Basophils) system which ge nerated this result tra nsmitted reference range : <=1.0. The reference r christiano was not used to int erpret this result as normal/abnormal . [place] [address]-12-06 09:53:13 Test Item Value Reference Range Interpretation Comments Atypical Lymphs (test code = Atypical 0.0 Lymphs) [address]12-06 09:53:13 Test Item Value Reference Range Interpretation Comments RBC Morph (test code = Normal (09/05/20 3:53 RBC Morph) AM) [address]12-06 09:53:13 Test Item Value Reference Range Interpretation Comments Plt Morph (test code = Normal (09/05/20 3:53 Plt Morph) AM) [address]12-06 09:53:00 Test Item Value Reference Range Interpretation Comments Coronavirus (COVID-19) Not Detected (09/05/20 JONATHAN (test code = 3:53 AM) Coronavirus (COVID-19) JONATHAN) [place] [address]-12-06 09:53:00 Test Item Value Reference Range Interpretation Comments Coronavirus (COVID-19) Not Detected (09/05/20 JONATHAN (test code = 3:53 AM) Coronavirus (COVID-19) JONATHAN) [place] [address]-12-06 09:53:00 Test Item Value Reference Range Interpretation Comments Coronavirus (COVID-19) Not Detected (09/05/20 JONATHAN (test code = 3:53 AM) Coronavirus (COVID-19) JONATHAN) [place] [address]-12-06 09:53:00 Test Item Value Reference Range Interpretation Comments Coronavirus (COVID-19) Not Detected (09/05/20 JONATHAN (test code = 3:53 AM) Coronavirus (COVID-19) JONATHAN) [place] [address]-12-06 09:53:00 Test Item Value Reference Range Interpretation Comments Coronavirus (COVID-19) Not Detected (09/05/20 JONATHAN (test code = 3:53 AM) Coronavirus (COVID-19) JONATHAN) [place] [address]-12-06 09:53:00 Test Item Value Reference Range Interpretation Comments Coronavirus (COVID-19) Not Detected (09/05/20 JONATHAN (test code = 3:53 AM) Coronavirus (COVID-19) JONATHAN) [place] [address]-12-06 09:53:00 Test Item Value Reference Range Interpretation Comments Coronavirus (COVID-19) Not Detected (09/05/20 JONATHAN (test code = 3:53 AM) Coronavirus (COVID-19) JONATHAN) [place] [address]-12-06 09:53:00 Test Item Value Reference Range Interpretation Comments Coronavirus (COVID-19) Not Detected (09/05/20 JONATHAN (test code = 3:53 AM) Coronavirus (COVID-19) JONATHAN) [address]12-06 09:53:00 Test Item Value Reference Range Interpretation Comments Coronavirus (COVID-19) Not Detected (09/05/20 JONATHAN (test code = 3:53 AM) Coronavirus (COVID-19) JONATHAN) [place] [address]-12-06 09:53:00 Test Item Value Reference Range Interpretation Comments Coronavirus (COVID-19) Not Detected (09/05/20 JONATHAN (test code = 3:53 AM) Coronavirus (COVID-19) JONATHAN) [place] [address]-12-06 09:53:00 Test Item Value Reference Range Interpretation Comments Coronavirus (COVID-19) Not Detected (09/05/20 JONATHAN (test code = 3:53 AM) Coronavirus (COVID-19) JONATHAN) [place] [address]-12-06 09:53:00 Test Item Value Reference Range Interpretation Comments Coronavirus (COVID-19) Not Detected (09/05/20 JONATHAN (test code = 3:53 AM) Coronavirus (COVID-19) JONATHAN) [address]12-06 09:53:00 Test Item Value Reference Range Interpretation Comments Coronavirus (COVID-19) Not Detected (09/05/20 JONATHAN (test code = 3:53 AM) Coronavirus (COVID-19) JONATHAN) [place] [address]-12-06 09:53:00 Test Item Value Reference Range Interpretation Comments Coronavirus (COVID-19) Not Detected (09/05/20 JONATHAN (test code = 3:53 AM) Coronavirus (COVID-19) JONATHAN) [address]12-06 09:53:00 Test Item Value Reference Range Interpretation Comments Coronavirus (COVID-19) Not Detected (09/05/20 JONATHAN (test code = 3:53 AM) Coronavirus (COVID-19) JONATHAN) [facility]DO3260[facility] 09:53:00 Test Item Value Reference Range Interpretation Comments Coronavirus (COVID-19) Not Detected (09/05/20 JONATHAN (test code = 3:53 AM) Coronavirus (COVID-19) JONATHAN) [facility] [id number] 04:34:00 Test Item Value Reference Range Interpretation Comments Troponin-I (test code no gt See_Comment [Auto mated message] The = Troponin-I) system which g enerated this result transmit sheba reference range : <=0.40. The reference r christiano was not used to interpr et this result as edy l/abnormal. [facility] [employer] [id number] 04:34:00 Test Item Value Reference Range Interpretation Comments Glucose Lvl (test code = Glucose Lvl) 125 70-99 [facility] [employer] [id number] 04:34:00 Test Item Value Reference Range Interpretation Comments BUN (test code = BUN) 17 7-22 [facility] [employer] [id number] 04:34:00 Test Item Value Reference Range Interpretation Comments Creatinine Lvl (test code = Creatinine 1.51 0.50-1.40 Lvl) [facility]2020-12-06 04:34:00 Test Item Value Reference Range Interpretation Comments Sodium Lvl (test code = Sodium Lvl) 142 135-145 [facility] [employer] [id number] 04:34:00 Test Item Value Reference Range Interpretation Comments Potassium Lvl (test code = Potassium 4.0 3.5-5.1 Lvl) [facility] [employer] [id number] 04:34:00 Test Item Value Reference Range Interpretation Comments Chloride Lvl (test code = Chloride Lvl) 108 95-109 [facility] [employer] [id number] 04:34:00 Test Item Value Reference Range Interpretation Comments CO2 (test code = CO2) 30 24-32 [facility] [employer] [id number] 04:34:00 Test Item Value Reference Range Interpretation Comments Calcium Lvl (test code = Calcium Lvl) 7.8 8.5-10.5 [facility] [id number] 04:34:00 Test Item Value Reference Range Interpretation Comments AGAP (test code = AGAP) 8.0 10.0-20.0 [facility] [id number] 04:34:00 Test Item Value Reference Range Interpretation Comments eGFR (test code = eGFR) 33 [facility] H[id number] 04:34:00 Test Item Value Reference Range Interpretation Comments WBC X 10x3 (test code = WBC X 10x3) 9.7 3.7-10.4 [facility] Hos[id number] 04:34:00 Test Item Value Reference Range Interpretation Comments RBC X 10x6 (test code = RBC X 10x6) 3.96 4.20-5.40 [place] 633380-12-06 04:34:00 Test Item Value Reference Range Interpretation Comments Hgb (test code = Hgb) 10.6 12.0-16.0 [place] 633380-12-06 04:34:00 Test Item Value Reference Range Interpretation Comments Hct (test code = Hct) 32.6 36.0-48.0 [facility] HospitalUdkqjbdESCGNTULLW4381-27-31 04:34:00 Test Item Value Reference Range Interpretation Comments MCV (test code = MCV) 82.3 80.0-98.0 [facility] HospitalSqwugdeTATHDMLPOE5089-89-56 04:34:00 Test Item Value Reference Range Interpretation Comments MCH (test code = MCH) 26.6 pg 27.0-31.0 [facility] HospitalVdtijjmUDZDIEKOUZ9033-62-30 04:34:00 Test Item Value Reference Range Interpretation Comments MCHC (test code = MCHC) 32.4 32.0-36.0 [place] 633380-12-06 04:34:00 Test Item Value Reference Range Interpretation Comments RDW (test code = RDW) 16.8 11.5-14.5 [place] 633380-12-06 04:34:00 Test Item Value Reference Range Interpretation Comments Platelet (test code = Platelet) 178 133-450 [facility] HospitalNyhxghhUBXXWCWOEC3263-97-58 04:34:00 Test Item Value Reference Range Interpretation Comments MPV (test code = MPV) 8.0 7.4-10.4 [place] 633380-12-06 04:34:00 Test Item Value Reference Range Interpretation Comments PT (test code = PT) 14.7 s 12.0-14.7 [place] 633380-12-06 04:34:00 Test Item Value Reference Range Interpretation Comments INR (test code = INR) 1.14 1 0.85-1.17 [place] 633380-12-06 04:34:00 Test Item Value Reference Range Interpretation Comments PTT (test code = PTT) 31.2 s 22.9-35.8 [place] 633380-12-06 04:34:00 Test Item Value Reference Range Interpretation Comments Segs (test code = Segs) 73.9 45.0-75.0 [place] 633380-12-06 04:34:00 Test Item Value Reference Range Interpretation Comments Lymphocytes (test code = Lymphocytes) 11.0 20.0-40.0 [place] 633380-12-06 04:34:00 Test Item Value Reference Range Interpretation Comments Monocytes (test code = Monocytes) 13.6 2.0-12.0 [place] [address]-12-06 04:34:00 Test Item Value Reference Range Interpretation Comments Eosinophils (test code = 0.7 See_Comment [A utomated message] The Eosinophils) system which ge nerated this result tra nsmitted reference range : <=4.0. The reference r christiano was not used to int erpret this result as normal/abnormal . [facility] HospitalFztsdjqYUWCWQUUTX0346-74-10 04:34:00 Test Item Value Reference Range Interpretation Comments Basophils (test code = 0.8 See_Comment [Aut omated message] The Basophils) system which ge nerated this result tra nsmitted reference range : <=1.0. The reference r christiano was not used to int erpret this result as normal/abnormal . [place] 633380-12-06 04:34:00 Test Item Value Reference Range Interpretation Comments Neutrophils # (test code = Neutrophils 7.2 1.5-8.1 #) [facility] HospitalEkukexhJGYGFLHZIX6659-54-93 04:34:00 Test Item Value Reference Range Interpretation Comments Lymphocytes # (test code = Lymphocytes 1.1 1.0-5.5 #) [place] 633380-12-06 04:34:00 Test Item Value Reference Range Interpretation Comments Monocytes # (test code 1.3 See_Comment [Aut omated message] The = Monocytes #) system which generated this result tra nsmitted reference range : <=0.8. The reference r christiano was not used to int erpret this result as normal/abnormal . [facility] HospitalEnvhwctZPBXPZRJKB1355-77-73 04:34:00 Test Item Value Reference Range Interpretation Comments Eosinophils # (test code 0.1 See_Comment [A utomated message] The = Eosinophils #) system whic h generated this result tra nsmitted reference range : <=0.5. The reference r christiano was not used to int erpret this result as normal/abnormal . [facility] HospitalPaamhksLNWROKCKRX7531-21-95 04:34:00 Test Item Value Reference Range Interpretation Comments Basophils # (test code 0.1 See_Comment [Aut omated message] The = Basophils #) system which generated this result tra nsmitted reference range : <=0.2. The reference r christiano was not used to int erpret this result as normal/abnormal . [facility] [id number] 04:34:00 Test Item Value Reference Range Interpretation Comments Troponin-I (test code no gt See_Comment [Auto mated message] The = Troponin-I) system which g enerated this result transmit sheba reference range : <=0.40. The reference r christiano was not used to interpr et this result as edy l/abnormal. [facility] [id number] 04:34:00 Test Item Value Reference Range Interpretation Comments Glucose Lvl (test code = Glucose Lvl) 125 70-99 [facility] [id number] 04:34:00 Test Item Value Reference Range Interpretation Comments BUN (test code = BUN) 17 7-22 [facility] [id number] 04:34:00 Test Item Value Reference Range Interpretation Comments Creatinine Lvl (test code = Creatinine 1.51 0.50-1.40 Lvl) [facility] [id number] 04:34:00 Test Item Value Reference Range Interpretation Comments Sodium Lvl (test code = Sodium Lvl) 142 135-145 [facility] [id number] 04:34:00 Test Item Value Reference Range Interpretation Comments Potassium Lvl (test code = Potassium 4.0 3.5-5.1 Lvl) [place] 454360-12-06 04:34:00 Test Item Value Reference Range Interpretation Comments Chloride Lvl (test code = Chloride Lvl) 108 95-109 [place] 454360-12-06 04:34:00 Test Item Value Reference Range Interpretation Comments CO2 (test code = CO2) 30 24-32 [place] 454360-12-06 04:34:00 Test Item Value Reference Range Interpretation Comments Calcium Lvl (test code = Calcium Lvl) 7.8 8.5-10.5 [place] 454360-12-06 04:34:00 Test Item Value Reference Range Interpretation Comments AGAP (test code = AGAP) 8.0 10.0-20.0 [place] 454360-12-06 04:34:00 Test Item Value Reference Range Interpretation Comments eGFR (test code = eGFR) 33 [place] 633380-12-06 04:34:00 Test Item Value Reference Range Interpretation Comments WBC X 10x3 (test code = WBC X 10x3) 9.7 3.7-10.4 [place] [address]-12-06 04:34:00 Test Item Value Reference Range Interpretation Comments RBC X 10x6 (test code = RBC X 10x6) 3.96 4.20-5.40 [place] [address]-12-06 04:34:00 Test Item Value Reference Range Interpretation Comments Hgb (test code = Hgb) 10.6 12.0-16.0 [place] [address]-12-06 04:34:00 Test Item Value Reference Range Interpretation Comments Hct (test code = Hct) 32.6 36.0-48.0 [place] [address]-12-06 04:34:00 Test Item Value Reference Range Interpretation Comments MCV (test code = MCV) 82.3 80.0-98.0 [place] [address]-12-06 04:34:00 Test Item Value Reference Range Interpretation Comments MCH (test code = MCH) 26.6 pg 27.0-31.0 [place] [address]-12-06 04:34:00 Test Item Value Reference Range Interpretation Comments MCHC (test code = MCHC) 32.4 32.0-36.0 [place] 633380-12-06 04:34:00 Test Item Value Reference Range Interpretation Comments RDW (test code = RDW) 16.8 11.5-14.5 [place] 633380-12-06 04:34:00 Test Item Value Reference Range Interpretation Comments Platelet (test code = Platelet) 178 133-450 [place] 633380-12-06 04:34:00 Test Item Value Reference Range Interpretation Comments MPV (test code = MPV) 8.0 7.4-10.4 [place] [address]-12-06 04:34:00 Test Item Value Reference Range Interpretation Comments PT (test code = PT) 14.7 s 12.0-14.7 [place] [address]-12-06 04:34:00 Test Item Value Reference Range Interpretation Comments INR (test code = INR) 1.14 1 0.85-1.17 [place] 633380-12-06 04:34:00 Test Item Value Reference Range Interpretation Comments PTT (test code = PTT) 31.2 s 22.9-35.8 [place] 633380-12-06 04:34:00 Test Item Value Reference Range Interpretation Comments Segs (test code = Segs) 73.9 45.0-75.0 [place] 633380-12-06 04:34:00 Test Item Value Reference Range Interpretation Comments Lymphocytes (test code = Lymphocytes) 11.0 20.0-40.0 [place] [address]-12-06 04:34:00 Test Item Value Reference Range Interpretation Comments Monocytes (test code = Monocytes) 13.6 2.0-12.0 [place] [address]-12-06 04:34:00 Test Item Value Reference Range Interpretation Comments Eosinophils (test code = 0.7 See_Comment [A utomated message] The Eosinophils) system which ge nerated this result tra nsmitted reference range : <=4.0. The reference r christiano was not used to int erpret this result as normal/abnormal . [place] 633380-12-06 04:34:00 Test Item Value Reference Range Interpretation Comments Basophils (test code = 0.8 See_Comment [Aut omated message] The Basophils) system which ge nerated this result tra nsmitted reference range : <=1.0. The reference r christiano was not used to int erpret this result as normal/abnormal . [facility] HospitalFmukbovKLXUCRAYED5563-41-06 04:34:00 Test Item Value Reference Range Interpretation Comments Neutrophils # (test code = Neutrophils 7.2 1.5-8.1 #) [facility] HospitalRymzwncPPNDIHKCEB4408-31-95 04:34:00 Test Item Value Reference Range Interpretation Comments Lymphocytes # (test code = Lymphocytes 1.1 1.0-5.5 #) [facility] HospitalLvhqlgtRQFLELORGF2279-38-74 04:34:00 Test Item Value Reference Range Interpretation Comments Monocytes # (test code 1.3 See_Comment [Aut omated message] The = Monocytes #) system which generated this result tra nsmitted reference range : <=0.8. The reference r christiano was not used to int erpret this result as normal/abnormal . [facility] HospitalBebpargOEQXPUOFAA9618-32-46 04:34:00 Test Item Value Reference Range Interpretation Comments Eosinophils # (test code 0.1 See_Comment [A utomated message] The = Eosinophils #) system whic h generated this result tra nsmitted reference range : <=0.5. The reference r christiano was not used to int erpret this result as normal/abnormal . [facility] HospitalYuhbkigWISEMNKHRI5582-45-98 04:34:00 Test Item Value Reference Range Interpretation Comments Basophils # (test code 0.1 See_Comment [Aut omated message] The = Basophils #) system which generated this result tra nsmitted reference range : <=0.2. The reference r christiano was not used to int erpret this result as normal/abnormal . [facility] [id number] 04:34:00 Test Item Value Reference Range Interpretation Comments Troponin-I (test code no gt See_Comment [Auto mated message] The = Troponin-I) system which g enerated this result transmit sheba reference range : <=0.40. The reference r christiano was not used to interpr et this result as edy l/abnormal. [facility] [employer] [id number] 04:34:00 Test Item Value Reference Range Interpretation Comments Glucose Lvl (test code = Glucose Lvl) 125 70-99 [facility] [id number] 04:34:00 Test Item Value Reference Range Interpretation Comments BUN (test code = BUN) 17 7-22 [place] 454360-12-06 04:34:00 Test Item Value Reference Range Interpretation Comments Creatinine Lvl (test code = Creatinine 1.51 0.50-1.40 Lvl) [place] 454360-12-06 04:34:00 Test Item Value Reference Range Interpretation Comments Sodium Lvl (test code = Sodium Lvl) 142 135-145 [place] 454360-12-06 04:34:00 Test Item Value Reference Range Interpretation Comments Potassium Lvl (test code = Potassium 4.0 3.5-5.1 Lvl) [place] 454360-12-06 04:34:00 Test Item Value Reference Range Interpretation Comments Chloride Lvl (test code = Chloride Lvl) 108 95-109 [place] 454360-12-06 04:34:00 Test Item Value Reference Range Interpretation Comments CO2 (test code = CO2) 30 24-32 [place] 454360-12-06 04:34:00 Test Item Value Reference Range Interpretation Comments Calcium Lvl (test code = Calcium Lvl) 7.8 8.5-10.5 [place] 454360-12-06 04:34:00 Test Item Value Reference Range Interpretation Comments AGAP (test code = AGAP) 8.0 10.0-20.0 [place] 454360-12-06 04:34:00 Test Item Value Reference Range Interpretation Comments eGFR (test code = eGFR) 33 [place] [address]-12-06 04:34:00 Test Item Value Reference Range Interpretation Comments WBC X 10x3 (test code = WBC X 10x3) 9.7 3.7-10.4 [place] [address]-12-06 04:34:00 Test Item Value Reference Range Interpretation Comments RBC X 10x6 (test code = RBC X 10x6) 3.96 4.20-5.40 [place] 633380-12-06 04:34:00 Test Item Value Reference Range Interpretation Comments Hgb (test code = Hgb) 10.6 12.0-16.0 [place] [address]-12-06 04:34:00 Test Item Value Reference Range Interpretation Comments Hct (test code = Hct) 32.6 36.0-48.0 [facility] HospitalHccxjpiASCWHZXFOX7007-33-52 04:34:00 Test Item Value Reference Range Interpretation Comments MCV (test code = MCV) 82.3 80.0-98.0 [facility] HospitalNqbipiyKYZJHQXMIX2311-45-65 04:34:00 Test Item Value Reference Range Interpretation Comments MCH (test code = MCH) 26.6 pg 27.0-31.0 [facility] HospitalPdysginBPAIVINUJT7105-48-11 04:34:00 Test Item Value Reference Range Interpretation Comments MCHC (test code = MCHC) 32.4 32.0-36.0 [facility] HospitalBvgqvgpTJJJWQIRWP3696-22-78 04:34:00 Test Item Value Reference Range Interpretation Comments RDW (test code = RDW) 16.8 11.5-14.5 [facility] HospitalPnqlehgPHRYATGDDN9995-94-03 04:34:00 Test Item Value Reference Range Interpretation Comments Platelet (test code = Platelet) 178 133-450 [facility] HospitalOntrzwcJONMNRKSGB4257-54-75 04:34:00 Test Item Value Reference Range Interpretation Comments MPV (test code = MPV) 8.0 7.4-10.4 [facility] HospitalWjifsosAKTMWGSRBH7431-14-53 04:34:00 Test Item Value Reference Range Interpretation Comments PT (test code = PT) 14.7 s 12.0-14.7 [facility] HospitalFyazthiUKKPLKYORJ7301-81-46 04:34:00 Test Item Value Reference Range Interpretation Comments INR (test code = INR) 1.14 1 0.85-1.17 [facility] HospitalQkjihtwHQCHFMJAGD1820-43-97 04:34:00 Test Item Value Reference Range Interpretation Comments PTT (test code = PTT) 31.2 s 22.9-35.8 [place] 633380-12-06 04:34:00 Test Item Value Reference Range Interpretation Comments Segs (test code = Segs) 73.9 45.0-75.0 [place] 633380-12-06 04:34:00 Test Item Value Reference Range Interpretation Comments Lymphocytes (test code = Lymphocytes) 11.0 20.0-40.0 [place] [address]-12-06 04:34:00 Test Item Value Reference Range Interpretation Comments Monocytes (test code = Monocytes) 13.6 2.0-12.0 [place] [address]-12-06 04:34:00 Test Item Value Reference Range Interpretation Comments Eosinophils (test code = 0.7 See_Comment [A utomated message] The Eosinophils) system which ge nerated this result tra nsmitted reference range : <=4.0. The reference r christiano was not used to int erpret this result as normal/abnormal . [facility] HospitalQjfblafUWKKWYBOLM2449-34-05 04:34:00 Test Item Value Reference Range Interpretation Comments Basophils (test code = 0.8 See_Comment [Aut omated message] The Basophils) system which ge nerated this result tra nsmitted reference range : <=1.0. The reference r christiano was not used to int erpret this result as normal/abnormal . [facility] HospitalSarbarlVSIUDTZHIV4225-99-19 04:34:00 Test Item Value Reference Range Interpretation Comments Neutrophils # (test code = Neutrophils 7.2 1.5-8.1 #) [facility] HospitalNlizyvcSOLFIQFNOG4126-14-91 04:34:00 Test Item Value Reference Range Interpretation Comments Lymphocytes # (test code = Lymphocytes 1.1 1.0-5.5 #) [facility] HospitalTrmtayrHOEULDYKIK0719-67-37 04:34:00 Test Item Value Reference Range Interpretation Comments Monocytes # (test code 1.3 See_Comment [Aut omated message] The = Monocytes #) system which generated this result tra nsmitted reference range : <=0.8. The reference r christiano was not used to int erpret this result as normal/abnormal . [facility] HospitalAhxbtvcZVGMCKLNJM6842-16-49 04:34:00 Test Item Value Reference Range Interpretation Comments Eosinophils # (test code 0.1 See_Comment [A utomated message] The = Eosinophils #) system whic h generated this result tra nsmitted reference range : <=0.5. The reference r christiano was not used to int erpret this result as normal/abnormal . [facility] HospitalBqmvgveQCYGIFCZKC9017-98-30 04:34:00 Test Item Value Reference Range Interpretation Comments Basophils # (test code 0.1 See_Comment [Aut omated message] The = Basophils #) system which generated this result tra nsmitted reference range : <=0.2. The reference r christiano was not used to int erpret this result as normal/abnormal . [facility] HospitalCARDIAC [id number] 04:34:00 Test Item Value Reference Range Interpretation Comments Troponin-I (test code no gt See_Comment [Auto mated message] The = Troponin-I) system which g enerated this result transmit sheba reference range : <=0.40. The reference r christiano was not used to interpr et this result as edy l/abnormal. [facility]IM[facility] [employer] [id number] 04:34:00 Test Item Value Reference Range Interpretation Comments Glucose Lvl (test code = Glucose Lvl) 125 70-99 [facility] [id number] 04:34:00 Test Item Value Reference Range Interpretation Comments BUN (test code = BUN) 17 7-22 [facility] [employer] [id number] 04:34:00 Test Item Value Reference Range Interpretation Comments Creatinine Lvl (test code = Creatinine 1.51 0.50-1.40 Lvl) [facility]2020-12-06 04:34:00 Test Item Value Reference Range Interpretation Comments Sodium Lvl (test code = Sodium Lvl) 142 135-145 [facility] [id number] 04:34:00 Test Item Value Reference Range Interpretation Comments Potassium Lvl (test code = Potassium 4.0 3.5-5.1 Lvl) [facility] [employer] [id number] 04:34:00 Test Item Value Reference Range Interpretation Comments Chloride Lvl (test code = Chloride Lvl) 108 95-109 [facility] [employer] [id number] 04:34:00 Test Item Value Reference Range Interpretation Comments CO2 (test code = CO2) 30 24-32 [facility]2020-12-06 04:34:00 Test Item Value Reference Range Interpretation Comments Calcium Lvl (test code = Calcium Lvl) 7.8 8.5-10.5 [facility] [employer] [id number] 04:34:00 Test Item Value Reference Range Interpretation Comments AGAP (test code = AGAP) 8.0 10.0-20.0 [facility]IM[facility] [employer] [id number] 04:34:00 Test Item Value Reference Range Interpretation Comments eGFR (test code = eGFR) 33 [facility] HospitalDpkksusVBVPKGUUNE3035-85-62 04:34:00 Test Item Value Reference Range Interpretation Comments WBC X 10x3 (test code = WBC X 10x3) 9.7 3.7-10.4 [facility] HospitalWiedtnoFEHXQRGMEU1233-54-05 04:34:00 Test Item Value Reference Range Interpretation Comments RBC X 10x6 (test code = RBC X 10x6) 3.96 4.20-5.40 [place] 633380-12-06 04:34:00 Test Item Value Reference Range Interpretation Comments Hgb (test code = Hgb) 10.6 12.0-16.0 [place] [address]-12-06 04:34:00 Test Item Value Reference Range Interpretation Comments Hct (test code = Hct) 32.6 36.0-48.0 [facility] HospitalMvcbhmuKYGBFBARQV0552-05-52 04:34:00 Test Item Value Reference Range Interpretation Comments MCV (test code = MCV) 82.3 80.0-98.0 [place] [address]-12-06 04:34:00 Test Item Value Reference Range Interpretation Comments MCH (test code = MCH) 26.6 pg 27.0-31.0 [place] 633380-12-06 04:34:00 Test Item Value Reference Range Interpretation Comments MCHC (test code = MCHC) 32.4 32.0-36.0 [place] 633380-12-06 04:34:00 Test Item Value Reference Range Interpretation Comments RDW (test code = RDW) 16.8 11.5-14.5 [place] 633380-12-06 04:34:00 Test Item Value Reference Range Interpretation Comments Platelet (test code = Platelet) 178 133-450 [facility] HospitalTavsnduCANJRADDEQ0010-64-82 04:34:00 Test Item Value Reference Range Interpretation Comments MPV (test code = MPV) 8.0 7.4-10.4 [place] [address]-12-06 04:34:00 Test Item Value Reference Range Interpretation Comments PT (test code = PT) 14.7 s 12.0-14.7 [place] [address]-12-06 04:34:00 Test Item Value Reference Range Interpretation Comments INR (test code = INR) 1.14 1 0.85-1.17 [place] [address]-12-06 04:34:00 Test Item Value Reference Range Interpretation Comments PTT (test code = PTT) 31.2 s 22.9-35.8 [place] [address]-12-06 04:34:00 Test Item Value Reference Range Interpretation Comments Segs (test code = Segs) 73.9 45.0-75.0 [place] 633380-12-06 04:34:00 Test Item Value Reference Range Interpretation Comments Lymphocytes (test code = Lymphocytes) 11.0 20.0-40.0 [place] 633380-12-06 04:34:00 Test Item Value Reference Range Interpretation Comments Monocytes (test code = Monocytes) 13.6 2.0-12.0 [place] [address]-12-06 04:34:00 Test Item Value Reference Range Interpretation Comments Eosinophils (test code = 0.7 See_Comment [A utomated message] The Eosinophils) system which ge nerated this result tra nsmitted reference range : <=4.0. The reference r christiano was not used to int erpret this result as normal/abnormal . [place] 633380-12-06 04:34:00 Test Item Value Reference Range Interpretation Comments Basophils (test code = 0.8 See_Comment [Aut omated message] The Basophils) system which ge nerated this result tra nsmitted reference range : <=1.0. The reference r christiano was not used to int erpret this result as normal/abnormal . [facility] HospitalZugumakAXXJNOVNZV8418-89-99 04:34:00 Test Item Value Reference Range Interpretation Comments Neutrophils # (test code = Neutrophils 7.2 1.5-8.1 #) [facility] HospitalLpfiaebJBUKXKSLJT4939-26-90 04:34:00 Test Item Value Reference Range Interpretation Comments Lymphocytes # (test code = Lymphocytes 1.1 1.0-5.5 #) [place] [address]-12-06 04:34:00 Test Item Value Reference Range Interpretation Comments Monocytes # (test code 1.3 See_Comment [Aut omated message] The = Monocytes #) system which generated this result tra nsmitted reference range : <=0.8. The reference r christiano was not used to int erpret this result as normal/abnormal . [place] 633380-12-06 04:34:00 Test Item Value Reference Range Interpretation Comments Eosinophils # (test code 0.1 See_Comment [A utomated message] The = Eosinophils #) system whic h generated this result tra nsmitted reference range : <=0.5. The reference r christiano was not used to int erpret this result as normal/abnormal . [facility] HospitalPjoenreTPLTNZHGKP7510-11-88 04:34:00 Test Item Value Reference Range Interpretation Comments Basophils # (test code 0.1 See_Comment [Aut omated message] The = Basophils #) system which generated this result tra nsmitted reference range : <=0.2. The reference r christiano was not used to int erpret this result as normal/abnormal . [facility] HospitalCARDIAC [id number] 04:34:00 Test Item Value Reference Range Interpretation Comments Troponin-I (test code no gt See_Comment [Auto mated message] The = Troponin-I) system which g enerated this result transmit [place] reference range : <=0.40. The reference r christiano was not used to interpr et this result as edy l/abnormal. [facility] [id number] 04:34:00 Test Item Value Reference Range Interpretation Comments Glucose Lvl (test code = Glucose Lvl) 125 70-99 [facility] [id number] 04:34:00 Test Item Value Reference Range Interpretation Comments BUN (test code = BUN) 17 7-22 [facility] [id number] 04:34:00 Test Item Value Reference Range Interpretation Comments Creatinine Lvl (test code = Creatinine 1.51 0.50-1.40 Lvl) [facility] [id number] 04:34:00 Test Item Value Reference Range Interpretation Comments Sodium Lvl (test code = Sodium Lvl) 142 135-145 [facility] [employer] [id number] 04:34:00 Test Item Value Reference Range Interpretation Comments Potassium Lvl (test code = Potassium 4.0 3.5-5.1 Lvl) [facility] [id number] 04:34:00 Test Item Value Reference Range Interpretation Comments Chloride Lvl (test code = Chloride Lvl) 108 95-109 [facility] [id number] 04:34:00 Test Item Value Reference Range Interpretation Comments CO2 (test code = CO2) 30 24-32 [facility] [employer] [id number] 04:34:00 Test Item Value Reference Range Interpretation Comments Calcium Lvl (test code = Calcium Lvl) 7.8 8.5-10.5 [facility] [id number] 04:34:00 Test Item Value Reference Range Interpretation Comments AGAP (test code = AGAP) 8.0 10.0-20.0 [facility] [id number] 04:34:00 Test Item Value Reference Range Interpretation Comments eGFR (test code = eGFR) 33 [place] 633380-12-06 04:34:00 Test Item Value Reference Range Interpretation Comments WBC X 10x3 (test code = WBC X 10x3) 9.7 3.7-10.4 [place] 633380-12-06 04:34:00 Test Item Value Reference Range Interpretation Comments RBC X 10x6 (test code = RBC X 10x6) 3.96 4.20-5.40 [place] [address]-12-06 04:34:00 Test Item Value Reference Range Interpretation Comments Hgb (test code = Hgb) 10.6 12.0-16.0 [place] 633380-12-06 04:34:00 Test Item Value Reference Range Interpretation Comments Hct (test code = Hct) 32.6 36.0-48.0 [place] [address]-12-06 04:34:00 Test Item Value Reference Range Interpretation Comments MCV (test code = MCV) 82.3 80.0-98.0 [place] 633380-12-06 04:34:00 Test Item Value Reference Range Interpretation Comments MCH (test code = MCH) 26.6 pg 27.0-31.0 [place] 633380-12-06 04:34:00 Test Item Value Reference Range Interpretation Comments MCHC (test code = MCHC) 32.4 32.0-36.0 [place] [address]-12-06 04:34:00 Test Item Value Reference Range Interpretation Comments RDW (test code = RDW) 16.8 11.5-14.5 [place] 633380-12-06 04:34:00 Test Item Value Reference Range Interpretation Comments Platelet (test code = Platelet) 178 133-450 [facility] HospitalGfowejvADSGQURCDX6703-06-75 04:34:00 Test Item Value Reference Range Interpretation Comments MPV (test code = MPV) 8.0 7.4-10.4 [place] 633380-12-06 04:34:00 Test Item Value Reference Range Interpretation Comments PT (test code = PT) 14.7 s 12.0-14.7 [place] 633380-12-06 04:34:00 Test Item Value Reference Range Interpretation Comments INR (test code = INR) 1.14 1 0.85-1.17 [facility] HospitalObvaewpOKULRIDTGI8833-23-04 04:34:00 Test Item Value Reference Range Interpretation Comments PTT (test code = PTT) 31.2 s 22.9-35.8 [place] 633380-12-06 04:34:00 Test Item Value Reference Range Interpretation Comments Segs (test code = Segs) 73.9 45.0-75.0 [place] 633380-12-06 04:34:00 Test Item Value Reference Range Interpretation Comments Lymphocytes (test code = Lymphocytes) 11.0 20.0-40.0 [facility] HospitalFcffncpNJVAHGPTXQ2683-27-68 04:34:00 Test Item Value Reference Range Interpretation Comments Monocytes (test code = Monocytes) 13.6 2.0-12.0 [facility] HospitalFlfgnboTGXBWRLFER3212-05-92 04:34:00 Test Item Value Reference Range Interpretation Comments Eosinophils (test code = 0.7 See_Comment [A utomated message] The Eosinophils) system which ge nerated this result tra nsmitted reference range : <=4.0. The reference r christiano was not used to int erpret this result as normal/abnormal . [facility] HospitalGnrcnmuWATFNTUOGN1914-79-23 04:34:00 Test Item Value Reference Range Interpretation Comments Basophils (test code = 0.8 See_Comment [Aut omated message] The Basophils) system which ge nerated this result tra nsmitted reference range : <=1.0. The reference r christiano was not used to int erpret this result as normal/abnormal . [facility] HospitalFdfmhdlKMEBAKZQXP0474-96-29 04:34:00 Test Item Value Reference Range Interpretation Comments Neutrophils # (test code = Neutrophils 7.2 1.5-8.1 #) [facility] HospitalMngbecoGHVXBOXORI8506-15-41 04:34:00 Test Item Value Reference Range Interpretation Comments Lymphocytes # (test code = Lymphocytes 1.1 1.0-5.5 #) [place] 633380-12-06 04:34:00 Test Item Value Reference Range Interpretation Comments Monocytes # (test code 1.3 See_Comment [Aut omated message] The = Monocytes #) system which generated this result tra nsmitted reference range : <=0.8. The reference r christiano was not used to int erpret this result as normal/abnormal . [facility] CenterMdrozqaTOLUOAUZTT6552-34-12 04:34:00 Test Item Value Reference Range Interpretation Comments Eosinophils # (test code 0.1 See_Comment [A utomated message] The = Eosinophils #) system whic h generated this result tra nsmitted reference range : <=0.5. The reference r christiano was not used to int erpret this result as normal/abnormal . [facility] CenterKdcuoxvQDPDYNOHHB4627-04-68 04:34:00 Test Item Value Reference Range Interpretation Comments Basophils # (test code 0.1 See_Comment [Aut omated message] The = Basophils #) system which generated this result tra nsmitted reference range : <=0.2. The reference r christiano was not used to int erpret this result as normal/abnormal . [facility] [id number] 04:34:00 Test Item Value Reference Range Interpretation Comments Troponin-I (test code no gt See_Comment [Auto mated message] The = Troponin-I) system which g enerated this result transmit sheba reference range : <=0.40. The reference r christiano was not used to interpr et this result as edy l/abnormal. [facility]2020-12-06 04:34:00 Test Item Value Reference Range Interpretation Comments Glucose Lvl (test code = Glucose Lvl) 125 70-99 [facility] [employer] LAQUZ3101-06-30 04:34:00 Test Item Value Reference Range Interpretation Comments BUN (test code = BUN) 17 7-22 [facility] [employer] EYKFP4302-78-09 04:34:00 Test Item Value Reference Range Interpretation Comments Creatinine Lvl (test code = Creatinine 1.51 0.50-1.40 Lvl) [facility]2020-12-06 04:34:00 Test Item Value Reference Range Interpretation Comments Sodium Lvl (test code = Sodium Lvl) 142 135-145 [facility]2020-12-06 04:34:00 Test Item Value Reference Range Interpretation Comments Potassium Lvl (test code = Potassium 4.0 3.5-5.1 Lvl) [place] 454360-12-06 04:34:00 Test Item Value Reference Range Interpretation Comments Chloride Lvl (test code = Chloride Lvl) 108 95-109 [place] 454360-12-06 04:34:00 Test Item Value Reference Range Interpretation Comments CO2 (test code = CO2) 30 24-32 [place] 454360-12-06 04:34:00 Test Item Value Reference Range Interpretation Comments Calcium Lvl (test code = Calcium Lvl) 7.8 8.5-10.5 [place] 454360-12-06 04:34:00 Test Item Value Reference Range Interpretation Comments AGAP (test code = AGAP) 8.0 10.0-20.0 [place] 454360-12-06 04:34:00 Test Item Value Reference Range Interpretation Comments eGFR (test code = eGFR) 33 [place] 633380-12-06 04:34:00 Test Item Value Reference Range Interpretation Comments WBC X 10x3 (test code = WBC X 10x3) 9.7 3.7-10.4 [place] [address]-12-06 04:34:00 Test Item Value Reference Range Interpretation Comments RBC X 10x6 (test code = RBC X 10x6) 3.96 4.20-5.40 [place] 633380-12-06 04:34:00 Test Item Value Reference Range Interpretation Comments Hgb (test code = Hgb) 10.6 12.0-16.0 [place] [address]-12-06 04:34:00 Test Item Value Reference Range Interpretation Comments Hct (test code = Hct) 32.6 36.0-48.0 [place] [address]-12-06 04:34:00 Test Item Value Reference Range Interpretation Comments MCV (test code = MCV) 82.3 80.0-98.0 [place] [address]-12-06 04:34:00 Test Item Value Reference Range Interpretation Comments MCH (test code = MCH) 26.6 pg 27.0-31.0 [place] [address]-12-06 04:34:00 Test Item Value Reference Range Interpretation Comments MCHC (test code = MCHC) 32.4 32.0-36.0 [facility] HospitalWytkyppZPHIHAETCB2965-41-50 04:34:00 Test Item Value Reference Range Interpretation Comments RDW (test code = RDW) 16.8 11.5-14.5 [facility] HospitalNxqalgoWRIIGBQOXV8733-08-70 04:34:00 Test Item Value Reference Range Interpretation Comments Platelet (test code = Platelet) 178 133-450 [facility] HospitalOcypetuQGWOXPCNIR1285-90-81 04:34:00 Test Item Value Reference Range Interpretation Comments MPV (test code = MPV) 8.0 7.4-10.4 [place] 633380-12-06 04:34:00 Test Item Value Reference Range Interpretation Comments PT (test code = PT) 14.7 s 12.0-14.7 [place] 633380-12-06 04:34:00 Test Item Value Reference Range Interpretation Comments INR (test code = INR) 1.14 1 0.85-1.17 [facility] HospitalQwutxepZNRMQSDNOS0771-41-60 04:34:00 Test Item Value Reference Range Interpretation Comments PTT (test code = PTT) 31.2 s 22.9-35.8 [place] 633380-12-06 04:34:00 Test Item Value Reference Range Interpretation Comments Segs (test code = Segs) 73.9 45.0-75.0 [facility] HospitalDcavyooXJLXLHOGAD1665-37-99 04:34:00 Test Item Value Reference Range Interpretation Comments Lymphocytes (test code = Lymphocytes) 11.0 20.0-40.0 [facility] HospitalOlgaawuIMZLCQTTOX7020-23-94 04:34:00 Test Item Value Reference Range Interpretation Comments Monocytes (test code = Monocytes) 13.6 2.0-12.0 [place] [address]-12-06 04:34:00 Test Item Value Reference Range Interpretation Comments Eosinophils (test code = 0.7 See_Comment [A utomated message] The Eosinophils) system which ge nerated this result tra nsmitted reference range : <=4.0. The reference r christiano was not used to int erpret this result as normal/abnormal . [place] [address]-12-06 04:34:00 Test Item Value Reference Range Interpretation Comments Basophils (test code = 0.8 See_Comment [Aut omated message] The Basophils) system which ge nerated this result tra nsmitted reference range : <=1.0. The reference r christiano was not used to int erpret this result as normal/abnormal . [facility]HL[facility] Test Item Value Reference Range Interpretation Comments Neutrophils # (test code = Neutrophils 7.2 1.5-8.1 #) [facility]YwdovbtDPSJVXYBVA9107-74-98 04:34:00 Test Item Value Reference Range Interpretation Comments Lymphocytes # (test code = Lymphocytes 1.1 1.0-5.5 #) [facility] HospitalAwctlboKDNHEKJBPA2824-09-85 04:34:00 Test Item Value Reference Range Interpretation Comments Monocytes # (test code 1.3 See_Comment [Aut omated message] The = Monocytes #) system which generated this result tra nsmitted reference range : <=0.8. The reference r christiano was not used to int erpret this result as normal/abnormal . [facility] HospitalUujmpeuNZCIWUILBH5578-56-97 04:34:00 Test Item Value Reference Range Interpretation Comments Eosinophils # (test code 0.1 See_Comment [A utomated message] The = Eosinophils #) system whic h generated this result tra nsmitted reference range : <=0.5. The reference r christiano was not used to int erpret this result as normal/abnormal . [facility] HospitalFwqlsjfOHDDQKKEPP7524-26-89 04:34:00 Test Item Value Reference Range Interpretation Comments Basophils # (test code 0.1 See_Comment [Aut omated message] The = Basophils #) system which generated this result tra nsmitted reference range : <=0.2. The reference r christiano was not used to int erpret this result as normal/abnormal . [facility] KYFRUTH2053-25-83 04:34:00 Test Item Value Reference Range Interpretation Comments Troponin-I (test code no gt See_Comment [Auto mated message] The = Troponin-I) system which g enerated this result transmit sheba reference range : <=0.40. The reference r christiano was not used to interpr et this result as edy l/abnormal. [facility]Ryst[facility] CPXMC1438-60-37 04:34:00 Test Item Value Reference Range Interpretation Comments Glucose Lvl (test code = Glucose Lvl) 125 70-99 [facility]IARKU6809-01-80 04:34:00 Test Item Value Reference Range Interpretation Comments BUN (test code = BUN) 17 7-22 [place] 454360-12-06 04:34:00 Test Item Value Reference Range Interpretation Comments Creatinine Lvl (test code = Creatinine 1.51 0.50-1.40 Lvl) [place] 454360-12-06 04:34:00 Test Item Value Reference Range Interpretation Comments Sodium Lvl (test code = Sodium Lvl) 142 135-145 [place] 454360-12-06 04:34:00 Test Item Value Reference Range Interpretation Comments Potassium Lvl (test code = Potassium 4.0 3.5-5.1 Lvl) [place] 454360-12-06 04:34:00 Test Item Value Reference Range Interpretation Comments Chloride Lvl (test code = Chloride Lvl) 108 95-109 [place] 454360-12-06 04:34:00 Test Item Value Reference Range Interpretation Comments CO2 (test code = CO2) 30 24-32 [place] 454360-12-06 04:34:00 Test Item Value Reference Range Interpretation Comments Calcium Lvl (test code = Calcium Lvl) 7.8 8.5-10.5 [place] 454360-12-06 04:34:00 Test Item Value Reference Range Interpretation Comments AGAP (test code = AGAP) 8.0 10.0-20.0 [place] 454360-12-06 04:34:00 Test Item Value Reference Range Interpretation Comments eGFR (test code = eGFR) 33 [place] [address]-12-06 04:34:00 Test Item Value Reference Range Interpretation Comments WBC X 10x3 (test code = WBC X 10x3) 9.7 3.7-10.4 [place] [address]-12-06 04:34:00 Test Item Value Reference Range Interpretation Comments RBC X 10x6 (test code = RBC X 10x6) 3.96 4.20-5.40 [place] 633380-12-06 04:34:00 Test Item Value Reference Range Interpretation Comments Hgb (test code = Hgb) 10.6 12.0-16.0 [place] [address]-12-06 04:34:00 Test Item Value Reference Range Interpretation Comments Hct (test code = Hct) 32.6 36.0-48.0 [place] 633380-12-06 04:34:00 Test Item Value Reference Range Interpretation Comments MCV (test code = MCV) 82.3 80.0-98.0 [place] 633380-12-06 04:34:00 Test Item Value Reference Range Interpretation Comments MCH (test code = MCH) 26.6 pg 27.0-31.0 [place] [address]-12-06 04:34:00 Test Item Value Reference Range Interpretation Comments MCHC (test code = MCHC) 32.4 32.0-36.0 [place] [address]-12-06 04:34:00 Test Item Value Reference Range Interpretation Comments RDW (test code = RDW) 16.8 11.5-14.5 [place] [address]-12-06 04:34:00 Test Item Value Reference Range Interpretation Comments Platelet (test code = Platelet) 178 133-450 [facility] HospitalMshotteCQFFWEYTVK6439-37-64 04:34:00 Test Item Value Reference Range Interpretation Comments MPV (test code = MPV) 8.0 7.4-10.4 [place] [address]-12-06 04:34:00 Test Item Value Reference Range Interpretation Comments PT (test code = PT) 14.7 s 12.0-14.7 [place] [address]-12-06 04:34:00 Test Item Value Reference Range Interpretation Comments INR (test code = INR) 1.14 1 0.85-1.17 [place] [address]-12-06 04:34:00 Test Item Value Reference Range Interpretation Comments PTT (test code = PTT) 31.2 s 22.9-35.8 [place] [address]-12-06 04:34:00 Test Item Value Reference Range Interpretation Comments Segs (test code = Segs) 73.9 45.0-75.0 [place] [address]-12-06 04:34:00 Test Item Value Reference Range Interpretation Comments Lymphocytes (test code = Lymphocytes) 11.0 20.0-40.0 [place] [address]-12-06 04:34:00 Test Item Value Reference Range Interpretation Comments Monocytes (test code = Monocytes) 13.6 2.0-12.0 [facility] HospitalXjfqqedRBHPJFIMAR0913-10-97 04:34:00 Test Item Value Reference Range Interpretation Comments Eosinophils (test code = 0.7 See_Comment [A utomated message] The Eosinophils) system which ge nerated this result tra nsmitted reference range : <=4.0. The reference r christiano was not used to int erpret this result as normal/abnormal . [facility] HospitalVqomtwbGQVJIHGRSO9235-06-64 04:34:00 Test Item Value Reference Range Interpretation Comments Basophils (test code = 0.8 See_Comment [Aut omated message] The Basophils) system which ge nerated this result tra nsmitted reference range : <=1.0. The reference r christiano was not used to int erpret this result as normal/abnormal . [facility] HospitalHykmzzxSTRKTDOTZU4460-13-67 04:34:00 Test Item Value Reference Range Interpretation Comments Neutrophils # (test code = Neutrophils 7.2 1.5-8.1 #) [facility] HospitalNgmovryXFCFFVHOMD2431-19-71 04:34:00 Test Item Value Reference Range Interpretation Comments Lymphocytes # (test code = Lymphocytes 1.1 1.0-5.5 #) [facility] HospitalLgizaxxFVNJHMCMNZ0900-58-56 04:34:00 Test Item Value Reference Range Interpretation Comments Monocytes # (test code 1.3 See_Comment [Aut omated message] The = Monocytes #) system which generated this result tra nsmitted reference range : <=0.8. The reference r christiano was not used to int erpret this result as normal/abnormal . [facility] HospitalKunigpeVODWLQRNBW1348-47-50 04:34:00 Test Item Value Reference Range Interpretation Comments Eosinophils # (test code 0.1 See_Comment [A utomated message] The = Eosinophils #) system whic h generated this result tra nsmitted reference range : <=0.5. The reference r christiano was not used to int erpret this result as normal/abnormal . [facility] HospitalMxsdjmyFDKVESBJAP7664-92-51 04:34:00 Test Item Value Reference Range Interpretation Comments Basophils # (test code 0.1 See_Comment [Aut omated message] The = Basophils #) system which generated this result tra nsmitted reference range : <=0.2. The reference r christiano was not used to int erpret this result as normal/abnormal . [facility] YYNOZJG5361-63-95 04:34:00 Test Item Value Reference Range Interpretation Comments Troponin-I (test code no gt See_Comment [Auto mated message] The = Troponin-I) system which g enerated this result transmit sheba reference range : <=0.40. The reference r christiano was not used to interpr et this result as edy l/abnormal. [facility] HospitalIMAGINATE - [employer] PNECD8235-17-74 04:34:00 Test Item Value Reference Range Interpretation Comments Glucose Lvl (test code = Glucose Lvl) 125 70-99 [facility]2020-12-06 04:34:00 Test Item Value Reference Range Interpretation Comments BUN (test code = BUN) 17 7-22 [place] 454360-12-06 04:34:00 Test Item Value Reference Range Interpretation Comments Creatinine Lvl (test code = Creatinine 1.51 0.50-1.40 Lvl) [facility]2020-12-06 04:34:00 Test Item Value Reference Range Interpretation Comments Sodium Lvl (test code = Sodium Lvl) 142 135-145 [facility]2020-12-06 04:34:00 Test Item Value Reference Range Interpretation Comments Potassium Lvl (test code = Potassium 4.0 3.5-5.1 Lvl) [facility]2020-12-06 04:34:00 Test Item Value Reference Range Interpretation Comments Chloride Lvl (test code = Chloride Lvl) 108 95-109 [facility]2020-12-06 04:34:00 Test Item Value Reference Range Interpretation Comments CO2 (test code = CO2) 30 24-32 [place] 454360-12-06 04:34:00 Test Item Value Reference Range Interpretation Comments Calcium Lvl (test code = Calcium Lvl) 7.8 8.5-10.5 [place] 454360-12-06 04:34:00 Test Item Value Reference Range Interpretation Comments AGAP (test code = AGAP) 8.0 10.0-20.0 [facility]2020-12-06 04:34:00 Test Item Value Reference Range Interpretation Comments eGFR (test code = eGFR) 33 [facility] HospitalKfxapkqVXTDYPELEN1709-97-23 04:34:00 Test Item Value Reference Range Interpretation Comments WBC X 10x3 (test code = WBC X 10x3) 9.7 3.7-10.4 [facility] HospitalDhpozagUUCGMNHBFE0965-88-69 04:34:00 Test Item Value Reference Range Interpretation Comments RBC X 10x6 (test code = RBC X 10x6) 3.96 4.20-5.40 [place] 633380-12-06 04:34:00 Test Item Value Reference Range Interpretation Comments Hgb (test code = Hgb) 10.6 12.0-16.0 [place] 633380-12-06 04:34:00 Test Item Value Reference Range Interpretation Comments Hct (test code = Hct) 32.6 36.0-48.0 [facility] HospitalJnlbfbvLQCJEOFBLU5076-86-60 04:34:00 Test Item Value Reference Range Interpretation Comments MCV (test code = MCV) 82.3 80.0-98.0 [place] 633380-12-06 04:34:00 Test Item Value Reference Range Interpretation Comments MCH (test code = MCH) 26.6 pg 27.0-31.0 [place] 633380-12-06 04:34:00 Test Item Value Reference Range Interpretation Comments MCHC (test code = MCHC) 32.4 32.0-36.0 [place] [address]-12-06 04:34:00 Test Item Value Reference Range Interpretation Comments RDW (test code = RDW) 16.8 11.5-14.5 [place] [address]-12-06 04:34:00 Test Item Value Reference Range Interpretation Comments Platelet (test code = Platelet) 178 133-450 [facility] HospitalAhjzobeGGZMTXKMDQ9272-76-75 04:34:00 Test Item Value Reference Range Interpretation Comments MPV (test code = MPV) 8.0 7.4-10.4 [place] [address]-12-06 04:34:00 Test Item Value Reference Range Interpretation Comments PT (test code = PT) 14.7 s 12.0-14.7 [place] [address]-12-06 04:34:00 Test Item Value Reference Range Interpretation Comments INR (test code = INR) 1.14 1 0.85-1.17 [place] [address]-12-06 04:34:00 Test Item Value Reference Range Interpretation Comments PTT (test code = PTT) 31.2 s 22.9-35.8 [facility] HospitalEylcrkwYRHTRZYRVL8952-19-61 04:34:00 Test Item Value Reference Range Interpretation Comments Segs (test code = Segs) 73.9 45.0-75.0 [facility] HospitalDeomyolNYJCPWZYXN7425-32-46 04:34:00 Test Item Value Reference Range Interpretation Comments Lymphocytes (test code = Lymphocytes) 11.0 20.0-40.0 [facility]PgnxuoiCFEHMBHTQG1317-06-37 04:34:00 Test Item Value Reference Range Interpretation Comments Monocytes (test code = Monocytes) 13.6 2.0-12.0 [facility] HospitalLbjvzzaXMUWPDLADF8969-55-47 04:34:00 Test Item Value Reference Range Interpretation Comments Eosinophils (test code = 0.7 See_Comment [A utomated message] The Eosinophils) system which ge nerated this result tra nsmitted reference range : <=4.0. The reference r christiano was not used to int erpret this result as normal/abnormal . [facility] HospitalYaievhaVDLMEBZYNW9543-54-21 04:34:00 Test Item Value Reference Range Interpretation Comments Basophils (test code = 0.8 See_Comment [Aut omated message] The Basophils) system which ge nerated this result tra nsmitted reference range : <=1.0. The reference r christiano was not used to int erpret this result as normal/abnormal . [facility] HospitalQueqhrtQJPLRQAHAA2818-31-31 04:34:00 Test Item Value Reference Range Interpretation Comments Neutrophils # (test code = Neutrophils 7.2 1.5-8.1 #) [facility] HospitalTkfbtqiMCCHZPREFU1131-21-67 04:34:00 Test Item Value Reference Range Interpretation Comments Lymphocytes # (test code = Lymphocytes 1.1 1.0-5.5 #) [place] 633380-12-06 04:34:00 Test Item Value Reference Range Interpretation Comments Monocytes # (test code 1.3 See_Comment [Aut omated message] The = Monocytes #) system which generated this result tra nsmitted reference range : <=0.8. The reference r christiano was not used to int erpret this result as normal/abnormal . [facility] UFCXGHK5716-88-83 04:34:00 Test Item Value Reference Range Interpretation Comments Troponin-I (test code no gt See_Comment [Auto mated message] The = Troponin-I) system which g enerated this result transmit sheba reference range : <=0.40. The reference r christiano was not used to interpr et this result as edy l/abnormal. [facility] HospitalZgksvobERIIGKBXEC6011-14-78 04:34:00 Test Item Value Reference Range Interpretation Comments Eosinophils # (test code 0.1 See_Comment [A utomated message] The = Eosinophils #) system whic h generated this result tra nsmitted reference range : <=0.5. The reference r christiano was not used to int erpret this result as normal/abnormal . [place] 454360-12-06 04:34:00 Test Item Value Reference Range Interpretation Comments Glucose Lvl (test code = Glucose Lvl) 125 70-99 [place] [address]-12-06 04:34:00 Test Item Value Reference Range Interpretation Comments BUN (test code = BUN) 17 7-22 [place] [address]-12-06 04:34:00 Test Item Value Reference Range Interpretation Comments Creatinine Lvl (test code = Creatinine 1.51 0.50-1.40 Lvl) [place] [address]-12-06 04:34:00 Test Item Value Reference Range Interpretation Comments Sodium Lvl (test code = Sodium Lvl) 142 135-145 [place] [address]-12-06 04:34:00 Test Item Value Reference Range Interpretation Comments Potassium Lvl (test code = Potassium 4.0 3.5-5.1 Lvl) [place] [address]-12-06 04:34:00 Test Item Value Reference Range Interpretation Comments Chloride Lvl (test code = Chloride Lvl) 108 95-109 [place] 454360-12-06 04:34:00 Test Item Value Reference Range Interpretation Comments CO2 (test code = CO2) 30 24-32 [place] 454360-12-06 04:34:00 Test Item Value Reference Range Interpretation Comments Calcium Lvl (test code = Calcium Lvl) 7.8 8.5-10.5 [place] [address]-12-06 04:34:00 Test Item Value Reference Range Interpretation Comments AGAP (test code = AGAP) 8.0 10.0-20.0 [place] [address]-12-06 04:34:00 Test Item Value Reference Range Interpretation Comments eGFR (test code = eGFR) 33 [facility] HospitalVeoqrulEFMGMPPLVY1659-24-55 04:34:00 Test Item Value Reference Range Interpretation Comments Basophils # (test code 0.1 See_Comment [Aut omated message] The = Basophils #) system which generated this result tra nsmitted reference range : <=0.2. The reference r christiano was not used to int erpret this result as normal/abnormal . [facility] HospitalQlfwfozLDNZZQSDWB8078-43-45 04:34:00 Test Item Value Reference Range Interpretation Comments WBC X 10x3 (test code = WBC X 10x3) 9.7 3.7-10.4 [place] 633380-12-06 04:34:00 Test Item Value Reference Range Interpretation Comments RBC X 10x6 (test code = RBC X 10x6) 3.96 4.20-5.40 [place] 633380-12-06 04:34:00 Test Item Value Reference Range Interpretation Comments Hgb (test code = Hgb) 10.6 12.0-16.0 [place] 633380-12-06 04:34:00 Test Item Value Reference Range Interpretation Comments Hct (test code = Hct) 32.6 36.0-48.0 [place] 633380-12-06 04:34:00 Test Item Value Reference Range Interpretation Comments MCV (test code = MCV) 82.3 80.0-98.0 [place] 633380-12-06 04:34:00 Test Item Value Reference Range Interpretation Comments MCH (test code = MCH) 26.6 pg 27.0-31.0 [place] 633380-12-06 04:34:00 Test Item Value Reference Range Interpretation Comments MCHC (test code = MCHC) 32.4 32.0-36.0 [place] [address]-12-06 04:34:00 Test Item Value Reference Range Interpretation Comments RDW (test code = RDW) 16.8 11.5-14.5 [facility] HospitalRbcsfjeNHWXPAEWMY4282-66-64 04:34:00 Test Item Value Reference Range Interpretation Comments Platelet (test code = Platelet) 178 133-450 [facility] HospitalHobrcryPWLJYKLFCE0506-43-84 04:34:00 Test Item Value Reference Range Interpretation Comments MPV (test code = MPV) 8.0 7.4-10.4 [facility] HospitalQjmlyvrKJBCYQDTLQ5795-76-55 04:34:00 Test Item Value Reference Range Interpretation Comments PT (test code = PT) 14.7 s 12.0-14.7 [facility] HospitalJjfipipVBHFWUWWVL3034-17-21 04:34:00 Test Item Value Reference Range Interpretation Comments INR (test code = INR) 1.14 1 0.85-1.17 [facility] HospitalByulrdsSTFLLKOUMQ1667-16-30 04:34:00 Test Item Value Reference Range Interpretation Comments PTT (test code = PTT) 31.2 s 22.9-35.8 [facility] HospitalDwoawjpRFWMAREDQH9865-28-09 04:34:00 Test Item Value Reference Range Interpretation Comments Segs (test code = Segs) 73.9 45.0-75.0 [facility] HospitalBdqwkgkOJCSQTQMTI3841-18-75 04:34:00 Test Item Value Reference Range Interpretation Comments Lymphocytes (test code = Lymphocytes) 11.0 20.0-40.0 [facility] HospitalWtkhrdxXDHVDUUCTP4738-00-93 04:34:00 Test Item Value Reference Range Interpretation Comments Monocytes (test code = Monocytes) 13.6 2.0-12.0 [facility] HospitalVwzeabwNMFLUQBMAB4166-52-26 04:34:00 Test Item Value Reference Range Interpretation Comments Eosinophils (test code = 0.7 See_Comment [A utomated message] The Eosinophils) system which ge nerated this result tra nsmitted reference range : <=4.0. The reference r christiano was not used to int erpret this result as normal/abnormal . [facility] HospitalJdncvygUQHTZDMXKX6035-65-28 04:34:00 Test Item Value Reference Range Interpretation Comments Basophils (test code = 0.8 See_Comment [Aut omated message] The Basophils) system which ge nerated this result tra nsmitted reference range : <=1.0. The reference r christiano was not used to int erpret this result as normal/abnormal . [facility] HospitalQuibllyICFEBVMMMV3756-26-13 04:34:00 Test Item Value Reference Range Interpretation Comments Neutrophils # (test code = Neutrophils 7.2 1.5-8.1 #) [facility] [facility]ormcdsEDORZMMFKH1407-65-54 04:34:00 Test Item Value Reference Range Interpretation Comments Lymphocytes # (test code = Lymphocytes 1.1 1.0-5.5 #) [facility]gEXWMPOJPPP1878-[facility]-89 04:34:00 Test Item Value Reference Range Interpretation Comments Monocytes # (test code 1.3 See_Comment [Aut omated message] The = Monocytes #) system which generated this result tra nsmitted reference range : <=0.8. The reference r christiano was not used to int erpret this result as normal/abnormal . [facility]hhlvdaJIFGZIXFJX7137-22-84 04:34:00 Test Item Value Reference Range Interpretation Comments Eosinophils # (test code 0.1 See_Comment [A utomated message] The = Eosinophils #) system whic h generated this result tra nsmitted reference range : <=0.5. The reference r christiano was not used to int erpret this result as normal/abnormal . [facility] HospitalGualbvuNNIEPDZMVU2560-57-71 04:34:00 Test Item Value Reference Range Interpretation Comments Basophils # (test code 0.1 See_Comment [Aut omated message] The = Basophils #) system which generated this result tra nsmitted reference range : <=0.2. The reference r christiano was not used to int erpret this result as normal/abnormal . [facility] EventsCARDIAC [id number] 04:34:00 Test Item Value Reference Range Interpretation Comments Troponin-I (test code no gt See_Comment [Auto mated message] The = Troponin-I) system which g enerated this result transmit sheba reference range : <=0.40. The reference r christiano was not used to interpr et this result as edy l/abnormal. [facility] [employer] [id number] 04:34:00 Test Item Value Reference Range Interpretation Comments Glucose Lvl (test code = Glucose Lvl) 125 70-99 [facility] [id number] 04:34:00 Test Item Value Reference Range Interpretation Comments BUN (test code = BUN) 17 7-22 [facility] [employer] [id number] 04:34:00 Test Item Value Reference Range Interpretation Comments Creatinine Lvl (test code = Creatinine 1.51 0.50-1.40 Lvl) [facility] [id number] 04:34:00 Test Item Value Reference Range Interpretation Comments Sodium Lvl (test code = Sodium Lvl) 142 135-145 [facility] [employer] [id number] 04:34:00 Test Item Value Reference Range Interpretation Comments Potassium Lvl (test code = Potassium 4.0 3.5-5.1 Lvl) [place] 454360-12-06 04:34:00 Test Item Value Reference Range Interpretation Comments Chloride Lvl (test code = Chloride Lvl) 108 95-109 [place] 454360-12-06 04:34:00 Test Item Value Reference Range Interpretation Comments CO2 (test code = CO2) 30 24-32 [place] 454360-12-06 04:34:00 Test Item Value Reference Range Interpretation Comments Calcium Lvl (test code = Calcium Lvl) 7.8 8.5-10.5 [place] 454360-12-06 04:34:00 Test Item Value Reference Range Interpretation Comments AGAP (test code = AGAP) 8.0 10.0-20.0 [place] 454360-12-06 04:34:00 Test Item Value Reference Range Interpretation Comments eGFR (test code = eGFR) 33 [place] 633380-12-06 04:34:00 Test Item Value Reference Range Interpretation Comments WBC X 10x3 (test code = WBC X 10x3) 9.7 3.7-10.4 [place] 633380-12-06 04:34:00 Test Item Value Reference Range Interpretation Comments RBC X 10x6 (test code = RBC X 10x6) 3.96 4.20-5.40 [place] 633380-12-06 04:34:00 Test Item Value Reference Range Interpretation Comments Hgb (test code = Hgb) 10.6 12.0-16.0 [place] [address]-12-06 04:34:00 Test Item Value Reference Range Interpretation Comments Hct (test code = Hct) 32.6 36.0-48.0 [place] [address]-12-06 04:34:00 Test Item Value Reference Range Interpretation Comments MCV (test code = MCV) 82.3 80.0-98.0 [place] [address]-12-06 04:34:00 Test Item Value Reference Range Interpretation Comments MCH (test code = MCH) 26.6 pg 27.0-31.0 [place] [address]-12-06 04:34:00 Test Item Value Reference Range Interpretation Comments MCHC (test code = MCHC) 32.4 32.0-36.0 [place] 633380-12-06 04:34:00 Test Item Value Reference Range Interpretation Comments RDW (test code = RDW) 16.8 11.5-14.5 [place] 633380-12-06 04:34:00 Test Item Value Reference Range Interpretation Comments Platelet (test code = Platelet) 178 133-450 [place] 633380-12-06 04:34:00 Test Item Value Reference Range Interpretation Comments MPV (test code = MPV) 8.0 7.4-10.4 [place] 633380-12-06 04:34:00 Test Item Value Reference Range Interpretation Comments PT (test code = PT) 14.7 s 12.0-14.7 [place] [address]-12-06 04:34:00 Test Item Value Reference Range Interpretation Comments INR (test code = INR) 1.14 1 0.85-1.17 [place] 633380-12-06 04:34:00 Test Item Value Reference Range Interpretation Comments PTT (test code = PTT) 31.2 s 22.9-35.8 [place] 633380-12-06 04:34:00 Test Item Value Reference Range Interpretation Comments Segs (test code = Segs) 73.9 45.0-75.0 [facility] HospitalUpogsmrNJAAHOVFAL7478-70-64 04:34:00 Test Item Value Reference Range Interpretation Comments Lymphocytes (test code = Lymphocytes) 11.0 20.0-40.0 [place] 633380-12-06 04:34:00 Test Item Value Reference Range Interpretation Comments Monocytes (test code = Monocytes) 13.6 2.0-12.0 [place] [address]-12-06 04:34:00 Test Item Value Reference Range Interpretation Comments Eosinophils (test code = 0.7 See_Comment [A utomated message] The Eosinophils) system which ge nerated this result tra nsmitted reference range : <=4.0. The reference r christiano was not used to int erpret this result as normal/abnormal . [place] 633380-12-06 04:34:00 Test Item Value Reference Range Interpretation Comments Basophils (test code = 0.8 See_Comment [Aut omated message] The Basophils) system which ge nerated this result tra nsmitted reference range : <=1.0. The reference r christiano was not used to int erpret this result as normal/abnormal . [facility]OlxvzpwLFCLJYPLYZ2709-26-83 04:34:00 Test Item Value Reference Range Interpretation Comments Neutrophils # (test code = Neutrophils 7.2 1.5-8.1 #) [facility]XxwkvewLXQLMDSLGS4628-95-27 04:34:00 Test Item Value Reference Range Interpretation Comments Lymphocytes # (test code = Lymphocytes 1.1 1.0-5.5 #) [facility] HospitalWzzshceMNNSLIZALA2661-31-53 04:34:00 Test Item Value Reference Range Interpretation Comments Monocytes # (test code 1.3 See_Comment [Aut omated message] The = Monocytes #) system which generated this result tra nsmitted reference range : <=0.8. The reference r christiano was not used to int erpret this result as normal/abnormal . [facility] HospitalZqgjtbjBDMILAYBAO0858-62-54 04:34:00 Test Item Value Reference Range Interpretation Comments Eosinophils # (test code 0.1 See_Comment [A utomated message] The = Eosinophils #) system whic h generated this result tra nsmitted reference range : <=0.5. The reference r christiano was not used to int erpret this result as normal/abnormal . [facility] HospitalFynudowCRLZKOZPMH8036-63-37 04:34:00 Test Item Value Reference Range Interpretation Comments Basophils # (test code 0.1 See_Comment [Aut omated message] The = Basophils #) system which generated this result tra nsmitted reference range : <=0.2. The reference r christiano was not used to int erpret this result as normal/abnormal . [facility] HospitalCARDIAC [id number] 04:34:00 Test Item Value Reference Range Interpretation Comments Troponin-I (test code no gt See_Comment [Auto mated message] The = Troponin-I) system which g enerated this result transmit sheba reference range : <=0.40. The reference r christiano was not used to interpr et this result as edy l/abnormal. [facility] [id number] 04:34:00 Test Item Value Reference Range Interpretation Comments Glucose Lvl (test code = Glucose Lvl) 125 70-99 [place] 454360-12-06 04:34:00 Test Item Value Reference Range Interpretation Comments BUN (test code = BUN) 17 7-22 [place] 454360-12-06 04:34:00 Test Item Value Reference Range Interpretation Comments Creatinine Lvl (test code = Creatinine 1.51 0.50-1.40 Lvl) [place] 454360-12-06 04:34:00 Test Item Value Reference Range Interpretation Comments Sodium Lvl (test code = Sodium Lvl) 142 135-145 [place] 454360-12-06 04:34:00 Test Item Value Reference Range Interpretation Comments Potassium Lvl (test code = Potassium 4.0 3.5-5.1 Lvl) [place] 454360-12-06 04:34:00 Test Item Value Reference Range Interpretation Comments Chloride Lvl (test code = Chloride Lvl) 108 95-109 [place] 454360-12-06 04:34:00 Test Item Value Reference Range Interpretation Comments CO2 (test code = CO2) 30 24-32 [place] 454360-12-06 04:34:00 Test Item Value Reference Range Interpretation Comments Calcium Lvl (test code = Calcium Lvl) 7.8 8.5-10.5 [place] 454360-12-06 04:34:00 Test Item Value Reference Range Interpretation Comments AGAP (test code = AGAP) 8.0 10.0-20.0 [place] 454360-12-06 04:34:00 Test Item Value Reference Range Interpretation Comments eGFR (test code = eGFR) 33 [place] [address]-12-06 04:34:00 Test Item Value Reference Range Interpretation Comments WBC X 10x3 (test code = WBC X 10x3) 9.7 3.7-10.4 [place] [address]-12-06 04:34:00 Test Item Value Reference Range Interpretation Comments RBC X 10x6 (test code = RBC X 10x6) 3.96 4.20-5.40 [place] 633380-12-06 04:34:00 Test Item Value Reference Range Interpretation Comments Hgb (test code = Hgb) 10.6 12.0-16.0 [place] [address]-12-06 04:34:00 Test Item Value Reference Range Interpretation Comments Hct (test code = Hct) 32.6 36.0-48.0 [place] [address]-12-06 04:34:00 Test Item Value Reference Range Interpretation Comments MCV (test code = MCV) 82.3 80.0-98.0 [place] [address]-12-06 04:34:00 Test Item Value Reference Range Interpretation Comments MCH (test code = MCH) 26.6 pg 27.0-31.0 [place] 633380-12-06 04:34:00 Test Item Value Reference Range Interpretation Comments MCHC (test code = MCHC) 32.4 32.0-36.0 [place] [address]-12-06 04:34:00 Test Item Value Reference Range Interpretation Comments RDW (test code = RDW) 16.8 11.5-14.5 [place] [address]-12-06 04:34:00 Test Item Value Reference Range Interpretation Comments Platelet (test code = Platelet) 178 133-450 [facility] HospitalBkgfithXNLGJFKWKR9433-66-09 04:34:00 Test Item Value Reference Range Interpretation Comments MPV (test code = MPV) 8.0 7.4-10.4 [place] [address]-12-06 04:34:00 Test Item Value Reference Range Interpretation Comments PT (test code = PT) 14.7 s 12.0-14.7 [place] 633380-12-06 04:34:00 Test Item Value Reference Range Interpretation Comments INR (test code = INR) 1.14 1 0.85-1.17 [place] [address]-12-06 04:34:00 Test Item Value Reference Range Interpretation Comments PTT (test code = PTT) 31.2 s 22.9-35.8 [place] [address]-12-06 04:34:00 Test Item Value Reference Range Interpretation Comments Segs (test code = Segs) 73.9 45.0-75.0 [place] [address]-12-06 04:34:00 Test Item Value Reference Range Interpretation Comments Lymphocytes (test code = Lymphocytes) 11.0 20.0-40.0 [place] [address]-12-06 04:34:00 Test Item Value Reference Range Interpretation Comments Monocytes (test code = Monocytes) 13.6 2.0-12.0 [place] 633380-12-06 04:34:00 Test Item Value Reference Range Interpretation Comments Eosinophils (test code = 0.7 See_Comment [A utomated message] The Eosinophils) system which ge nerated this result tra nsmitted reference range : <=4.0. The reference r christiano was not used to int erpret this result as normal/abnormal . [place] 633380-12-06 04:34:00 Test Item Value Reference Range Interpretation Comments Basophils (test code = 0.8 See_Comment [Aut omated message] The Basophils) system which ge nerated this result tra nsmitted reference range : <=1.0. The reference r christiano was not used to int erpret this result as normal/abnormal . [place] 633380-12-06 04:34:00 Test Item Value Reference Range Interpretation Comments Neutrophils # (test code = Neutrophils 7.2 1.5-8.1 #) [place] 633380-12-06 04:34:00 Test Item Value Reference Range Interpretation Comments Lymphocytes # (test code = Lymphocytes 1.1 1.0-5.5 #) [place] 633380-12-06 04:34:00 Test Item Value Reference Range Interpretation Comments Monocytes # (test code 1.3 See_Comment [Aut omated message] The = Monocytes #) system which generated this result tra nsmitted reference range : <=0.8. The reference r christiano was not used to int erpret this result as normal/abnormal . [place] 633380-12-06 04:34:00 Test Item Value Reference Range Interpretation Comments Eosinophils # (test code 0.1 See_Comment [A utomated message] The = Eosinophils #) system whic h generated this result tra nsmitted reference range : <=0.5. The reference r christiano was not used to int erpret this result as normal/abnormal . [place] 633380-12-06 04:34:00 Test Item Value Reference Range Interpretation Comments Basophils # (test code 0.1 See_Comment [Aut omated message] The = Basophils #) system which generated this result tra nsmitted reference range : <=0.2. The reference r christiano was not used to int erpret this result as normal/abnormal . [facility]aloAC [id number] 04:34:00 Test Item Value Reference Range Interpretation Comments Troponin-I (test code no gt See_Comment [Auto mated message] The = Troponin-I) system which g enerated this result transmit sheba reference range : <=0.40. The reference r christiano was not used to interpr et this result as edy l/abnormal. [facility] [employer] [id number] 04:34:00 Test Item Value Reference Range Interpretation Comments Glucose Lvl (test code = Glucose Lvl) 125 70-99 [facility] [id number] 04:34:00 Test Item Value Reference Range Interpretation Comments BUN (test code = BUN) 17 7-22 [facility] [id number] 04:34:00 Test Item Value Reference Range Interpretation Comments Creatinine Lvl (test code = Creatinine 1.51 0.50-1.40 Lvl) [facility]2020-12-06 04:34:00 Test Item Value Reference Range Interpretation Comments Sodium Lvl (test code = Sodium Lvl) 142 135-145 [facility] [id number] 04:34:00 Test Item Value Reference Range Interpretation Comments Potassium Lvl (test code = Potassium 4.0 3.5-5.1 Lvl) [facility] [employer] [id number] 04:34:00 Test Item Value Reference Range Interpretation Comments Chloride Lvl (test code = Chloride Lvl) 108 95-109 [facility] [id number] 04:34:00 Test Item Value Reference Range Interpretation Comments CO2 (test code = CO2) 30 24-32 [facility] [employer] [id number] 04:34:00 Test Item Value Reference Range Interpretation Comments Calcium Lvl (test code = Calcium Lvl) 7.8 8.5-10.5 [facility] [id number] 04:34:00 Test Item Value Reference Range Interpretation Comments AGAP (test code = AGAP) 8.0 10.0-20.0 [facility]2020-12-06 04:34:00 Test Item Value Reference Range Interpretation Comments eGFR (test code = eGFR) 33 [facility]XurlaugRQXYYBCAHP1832-93-01 04:34:00 Test Item Value Reference Range Interpretation Comments WBC X 10x3 (test code = WBC X 10x3) 9.7 3.7-10.4 [facility] HospitalRndxebbSVCCQCBDLI3488-82-86 04:34:00 Test Item Value Reference Range Interpretation Comments RBC X 10x6 (test code = RBC X 10x6) 3.96 4.20-5.40 [place] [address]-12-06 04:34:00 Test Item Value Reference Range Interpretation Comments Hgb (test code = Hgb) 10.6 12.0-16.0 [place] [address]-12-06 04:34:00 Test Item Value Reference Range Interpretation Comments Hct (test code = Hct) 32.6 36.0-48.0 [place] [address]-12-06 04:34:00 Test Item Value Reference Range Interpretation Comments MCV (test code = MCV) 82.3 80.0-98.0 [place] [address]-12-06 04:34:00 Test Item Value Reference Range Interpretation Comments MCH (test code = MCH) 26.6 pg 27.0-31.0 [place] 633380-12-06 04:34:00 Test Item Value Reference Range Interpretation Comments MCHC (test code = MCHC) 32.4 32.0-36.0 [facility] HospitalXqevvesHPDJHCPIDR4514-89-08 04:34:00 Test Item Value Reference Range Interpretation Comments RDW (test code = RDW) 16.8 11.5-14.5 [place] 633380-12-06 04:34:00 Test Item Value Reference Range Interpretation Comments Platelet (test code = Platelet) 178 133-450 [facility] HospitalZqlvforEBQIZRMRAA2574-98-50 04:34:00 Test Item Value Reference Range Interpretation Comments MPV (test code = MPV) 8.0 7.4-10.4 [place] [address]-12-06 04:34:00 Test Item Value Reference Range Interpretation Comments PT (test code = PT) 14.7 s 12.0-14.7 [place] 633380-12-06 04:34:00 Test Item Value Reference Range Interpretation Comments INR (test code = INR) 1.14 1 0.85-1.17 [place] 633380-12-06 04:34:00 Test Item Value Reference Range Interpretation Comments PTT (test code = PTT) 31.2 s 22.9-35.8 [place] 633380-12-06 04:34:00 Test Item Value Reference Range Interpretation Comments Segs (test code = Segs) 73.9 45.0-75.0 [place] 633380-12-06 04:34:00 Test Item Value Reference Range Interpretation Comments Lymphocytes (test code = Lymphocytes) 11.0 20.0-40.0 [place] 633380-12-06 04:34:00 Test Item Value Reference Range Interpretation Comments Monocytes (test code = Monocytes) 13.6 2.0-12.0 [place] 633380-12-06 04:34:00 Test Item Value Reference Range Interpretation Comments Eosinophils (test code = 0.7 See_Comment [A utomated message] The Eosinophils) system which ge nerated this result tra nsmitted reference range : <=4.0. The reference r christiano was not used to int erpret this result as normal/abnormal . [facility] HospitalPmzbujpKEBCLRIXVZ0593-72-93 04:34:00 Test Item Value Reference Range Interpretation Comments Basophils (test code = 0.8 See_Comment [Aut omated message] The Basophils) system which ge nerated this result tra nsmitted reference range : <=1.0. The reference r christiano was not used to int erpret this result as normal/abnormal . [facility] HospitalKzhpynrIDBKXXOGDD8718-23-38 04:34:00 Test Item Value Reference Range Interpretation Comments Neutrophils # (test code = Neutrophils 7.2 1.5-8.1 #) [place] 633380-12-06 04:34:00 Test Item Value Reference Range Interpretation Comments Lymphocytes # (test code = Lymphocytes 1.1 1.0-5.5 #) [place] 633380-12-06 04:34:00 Test Item Value Reference Range Interpretation Comments Monocytes # (test code 1.3 See_Comment [Aut omated message] The = Monocytes #) system which generated this result tra nsmitted reference range : <=0.8. The reference r christiano was not used to int erpret this result as normal/abnormal . [place] 633380-12-06 04:34:00 Test Item Value Reference Range Interpretation Comments Eosinophils # (test code 0.1 See_Comment [A utomated message] The = Eosinophils #) system whic h generated this result tra nsmitted reference range : <=0.5. The reference r christiano was not used to int erpret this result as normal/abnormal . [facility] CenterEvjzhehCKTDORRKBY9944-19-31 04:34:00 Test Item Value Reference Range Interpretation Comments Basophils # (test code 0.1 See_Comment [Aut omated message] The = Basophils #) system which generated this result tra nsmitted reference range : <=0.2. The reference r christiano was not used to int erpret this result as normal/abnormal . [facility] CenterSilver Fox EventsCARDIAC [id number] 04:34:00 Test Item Value Reference Range Interpretation Comments Troponin-I (test code no gt See_Comment [Auto mated message] The = Troponin-I) system which g enerated this result transmit sheba reference range : <=0.40. The reference r christiano was not used to interpr et this result as edy l/abnormal. [facility] [employer] [id number] 04:34:00 Test Item Value Reference Range Interpretation Comments Glucose Lvl (test code = Glucose Lvl) 125 70-99 [facility] [employer] [id number] 04:34:00 Test Item Value Reference Range Interpretation Comments BUN (test code = BUN) 17 7-22 [facility] [employer] [id number] 04:34:00 Test Item Value Reference Range Interpretation Comments Creatinine Lvl (test code = Creatinine 1.51 0.50-1.40 Lvl) [facility] [employer] [id number] 04:34:00 Test Item Value Reference Range Interpretation Comments Sodium Lvl (test code = Sodium Lvl) 142 135-145 [facility] [employer] [id number] 04:34:00 Test Item Value Reference Range Interpretation Comments Potassium Lvl (test code = Potassium 4.0 3.5-5.1 Lvl) [facility] [employer] [id number] 04:34:00 Test Item Value Reference Range Interpretation Comments Chloride Lvl (test code = Chloride Lvl) 108 95-109 [facility] [employer] [id number] 04:34:00 Test Item Value Reference Range Interpretation Comments CO2 (test code = CO2) 30 24-32 [facility] [employer] [id number] 04:34:00 Test Item Value Reference Range Interpretation Comments Calcium Lvl (test code = Calcium Lvl) 7.8 8.5-10.5 [facility] [id number] 04:34:00 Test Item Value Reference Range Interpretation Comments AGAP (test code = AGAP) 8.0 10.0-20.0 [facility] [id number] 04:34:00 Test Item Value Reference Range Interpretation Comments eGFR (test code = eGFR) 33 [facility] HospitalJhgptooUSNFYHXERL4863-60-10 04:34:00 Test Item Value Reference Range Interpretation Comments WBC X 10x3 (test code = WBC X 10x3) 9.7 3.7-10.4 [place] 633380-12-06 04:34:00 Test Item Value Reference Range Interpretation Comments RBC X 10x6 (test code = RBC X 10x6) 3.96 4.20-5.40 [facility] HospitalUzgtidkDMSGKZLQJC7210-19-62 04:34:00 Test Item Value Reference Range Interpretation Comments Hgb (test code = Hgb) 10.6 12.0-16.0 [place] 633380-12-06 04:34:00 Test Item Value Reference Range Interpretation Comments Hct (test code = Hct) 32.6 36.0-48.0 [facility] HospitalTtferblYVTKRQSJVY1026-13-46 04:34:00 Test Item Value Reference Range Interpretation Comments MCV (test code = MCV) 82.3 80.0-98.0 [facility] HospitalKndmdurHSFQPCRRJS4849-96-11 04:34:00 Test Item Value Reference Range Interpretation Comments MCH (test code = MCH) 26.6 pg 27.0-31.0 [facility] HospitalKqelqevFCSAHRSBOF6187-36-01 04:34:00 Test Item Value Reference Range Interpretation Comments MCHC (test code = MCHC) 32.4 32.0-36.0 [place] 633380-12-06 04:34:00 Test Item Value Reference Range Interpretation Comments RDW (test code = RDW) 16.8 11.5-14.5 [place] 633380-12-06 04:34:00 Test Item Value Reference Range Interpretation Comments Platelet (test code = Platelet) 178 133-450 [facility] Hos[id number] 04:34:00 Test Item Value Reference Range Interpretation Comments MPV (test code = MPV) 8.0 7.4-10.4 [place] 633380-12-06 04:34:00 Test Item Value Reference Range Interpretation Comments PT (test code = PT) 14.7 s 12.0-14.7 [place] 633380-12-06 04:34:00 Test Item Value Reference Range Interpretation Comments INR (test code = INR) 1.14 1 0.85-1.17 [place] 633380-12-06 04:34:00 Test Item Value Reference Range Interpretation Comments PTT (test code = PTT) 31.2 s 22.9-35.8 [place] 633380-12-06 04:34:00 Test Item Value Reference Range Interpretation Comments Segs (test code = Segs) 73.9 45.0-75.0 [place] [address]-12-06 04:34:00 Test Item Value Reference Range Interpretation Comments Lymphocytes (test code = Lymphocytes) 11.0 20.0-40.0 [place] 633380-12-06 04:34:00 Test Item Value Reference Range Interpretation Comments Monocytes (test code = Monocytes) 13.6 2.0-12.0 [place] 633380-12-06 04:34:00 Test Item Value Reference Range Interpretation Comments Eosinophils (test code = 0.7 See_Comment [A utomated message] The Eosinophils) system which ge nerated this result tra nsmitted reference range : <=4.0. The reference r christiano was not used to int erpret this result as normal/abnormal . [place] 633380-12-06 04:34:00 Test Item Value Reference Range Interpretation Comments Basophils (test code = 0.8 See_Comment [Aut omated message] The Basophils) system which ge nerated this result tra nsmitted reference range : <=1.0. The reference r christiano was not used to int erpret this result as normal/abnormal . [place] 633380-12-06 04:34:00 Test Item Value Reference Range Interpretation Comments Neutrophils # (test code = Neutrophils 7.2 1.5-8.1 #) [place] 633380-12-06 04:34:00 Test Item Value Reference Range Interpretation Comments Lymphocytes # (test code = Lymphocytes 1.1 1.0-5.5 #) [id number] 04:34:00 Test Item Value Reference Range Interpretation Comments Monocytes # (test code 1.3 See_Comment [Aut omated message] The = Monocytes #) system which generated this result tra nsmitted reference range : <=0.8. The reference r christiano was not used to int erpret this result as normal/abnormal . [facility] CenterSieqponMQOKOFOKIH3656-22-92 04:34:00 Test Item Value Reference Range Interpretation Comments Eosinophils # (test code 0.1 See_Comment [A utomated message] The = Eosinophils #) system whic h generated this result tra nsmitted reference range : <=0.5. The reference r christiano was not used to int erpret this result as normal/abnormal . [facility] CenterQdcuhuuWIPELHPBYR6120-16-66 04:34:00 Test Item Value Reference Range Interpretation Comments Basophils # (test code 0.1 See_Comment [Aut omated message] The = Basophils #) system which generated this result tra nsmitted reference range : <=0.2. The reference r christiano was not used to int erpret this result as normal/abnormal . [facility] CenterSilver Fox EventsCARDIAC [id number] 04:34:00 Test Item Value Reference Range Interpretation Comments Troponin-I (test code no gt See_Comment [Auto mated message] The = Troponin-I) system which g enerated this result transmit sheba reference range : <=0.40. The reference r christiano was not used to interpr et this result as edy l/abnormal. [facility] [employer] [id number] 04:34:00 Test Item Value Reference Range Interpretation Comments Glucose Lvl (test code = Glucose Lvl) 125 70-99 [facility] [employer] [id number] 04:34:00 Test Item Value Reference Range Interpretation Comments BUN (test code = BUN) 17 7-22 [facility] [employer] [id number] 04:34:00 Test Item Value Reference Range Interpretation Comments Creatinine Lvl (test code = Creatinine 1.51 0.50-1.40 Lvl) [facility] [employer] [id number] 04:34:00 Test Item Value Reference Range Interpretation Comments Sodium Lvl (test code = Sodium Lvl) 142 135-145 [facility] [employer] [id number] 04:34:00 Test Item Value Reference Range Interpretation Comments Potassium Lvl (test code = Potassium 4.0 3.5-5.1 Lvl) [facility]2020-12-06 04:34:00 Test Item Value Reference Range Interpretation Comments Chloride Lvl (test code = Chloride Lvl) 108 95-109 [facility]2020-12-06 04:34:00 Test Item Value Reference Range Interpretation Comments CO2 (test code = CO2) 30 24-32 [place] 454360-12-06 04:34:00 Test Item Value Reference Range Interpretation Comments Calcium Lvl (test code = Calcium Lvl) 7.8 8.5-10.5 [facility] [employer] [id number] 04:34:00 Test Item Value Reference Range Interpretation Comments AGAP (test code = AGAP) 8.0 10.0-20.0 [facility] [employer] [id number] 04:34:00 Test Item Value Reference Range Interpretation Comments eGFR (test code = eGFR) 33 [place] 633380-12-06 04:34:00 Test Item Value Reference Range Interpretation Comments WBC X 10x3 (test code = WBC X 10x3) 9.7 3.7-10.4 [place] 633380-12-06 04:34:00 Test Item Value Reference Range Interpretation Comments RBC X 10x6 (test code = RBC X 10x6) 3.96 4.20-5.40 [place] 633380-12-06 04:34:00 Test Item Value Reference Range Interpretation Comments Hgb (test code = Hgb) 10.6 12.0-16.0 [place] 633380-12-06 04:34:00 Test Item Value Reference Range Interpretation Comments Hct (test code = Hct) 32.6 36.0-48.0 [place] [address]-12-06 04:34:00 Test Item Value Reference Range Interpretation Comments MCV (test code = MCV) 82.3 80.0-98.0 [place] 633380-12-06 04:34:00 Test Item Value Reference Range Interpretation Comments MCH (test code = MCH) 26.6 pg 27.0-31.0 [place] [address]-12-06 04:34:00 Test Item Value Reference Range Interpretation Comments MCHC (test code = MCHC) 32.4 32.0-36.0 [place] 633380-12-06 04:34:00 Test Item Value Reference Range Interpretation Comments RDW (test code = RDW) 16.8 11.5-14.5 [place] [address]-12-06 04:34:00 Test Item Value Reference Range Interpretation Comments Platelet (test code = Platelet) 178 133-450 [place] 633380-12-06 04:34:00 Test Item Value Reference Range Interpretation Comments MPV (test code = MPV) 8.0 7.4-10.4 [place] [address]-12-06 04:34:00 Test Item Value Reference Range Interpretation Comments PT (test code = PT) 14.7 s 12.0-14.7 [place] [address]-12-06 04:34:00 Test Item Value Reference Range Interpretation Comments INR (test code = INR) 1.14 1 0.85-1.17 [place] [address]-12-06 04:34:00 Test Item Value Reference Range Interpretation Comments PTT (test code = PTT) 31.2 s 22.9-35.8 [place] [address]-12-06 04:34:00 Test Item Value Reference Range Interpretation Comments Segs (test code = Segs) 73.9 45.0-75.0 [place] 633380-12-06 04:34:00 Test Item Value Reference Range Interpretation Comments Lymphocytes (test code = Lymphocytes) 11.0 20.0-40.0 [place] 633380-12-06 04:34:00 Test Item Value Reference Range Interpretation Comments Monocytes (test code = Monocytes) 13.6 2.0-12.0 [place] [address]-12-06 04:34:00 Test Item Value Reference Range Interpretation Comments Eosinophils (test code = 0.7 See_Comment [A utomated message] The Eosinophils) system which ge nerated this result tra nsmitted reference range : <=4.0. The reference r christiano was not used to int erpret this result as normal/abnormal . [place] [address]-12-06 04:34:00 Test Item Value Reference Range Interpretation Comments Basophils (test code = 0.8 See_Comment [Aut omated message] The Basophils) system which ge nerated this result tra nsmitted reference range : <=1.0. The reference r christiano was not used to int erpret this result as normal/abnormal . [facility] 04:34:00 Test Item Value Reference Range Interpretation Comments Neutrophils # (test code = Neutrophils 7.2 1.5-8.1 #) [facility]KwhrcnrSCRLQEXVAZ1760-46-21 04:34:00 Test Item Value Reference Range Interpretation Comments Lymphocytes # (test code = Lymphocytes 1.1 1.0-5.5 #) [facility]ZbticqhZTPPLFHBQC3043-34-13 04:34:00 Test Item Value Reference Range Interpretation Comments Monocytes # (test code 1.3 See_Comment [Aut omated message] The = Monocytes #) system which generated this result tra nsmitted reference range : <=0.8. The reference r christiano was not used to int erpret this result as normal/abnormal . [facility] HospitalYehlvlcLBLMJYOSWQ2348-89-63 04:34:00 Test Item Value Reference Range Interpretation Comments Eosinophils # (test code 0.1 See_Comment [A utomated message] The = Eosinophils #) system whic h generated this result tra nsmitted reference range : <=0.5. The reference r christiano was not used to int erpret this result as normal/abnormal . [facility] HospitalHilvkvmRQVFAEGIWK3033-42-81 04:34:00 Test Item Value Reference Range Interpretation Comments Basophils # (test code 0.1 See_Comment [Aut omated message] The = Basophils #) system which generated this result tra nsmitted reference range : <=0.2. The reference r christiano was not used to int erpret this result as normal/abnormal . [facility] [id number] 04:34:00 Test Item Value Reference Range Interpretation Comments Troponin-I (test code no gt See_Comment [Auto mated message] The = Troponin-I) system which g enerated this result transmit sheba reference range : <=0.40. The reference r christiano was not used to interpr et this result as edy l/abnormal. [facility] [employer] [id number] 04:34:00 Test Item Value Reference Range Interpretation Comments Glucose Lvl (test code = Glucose Lvl) 125 70-99 [place] 454360-12-06 04:34:00 Test Item Value Reference Range Interpretation Comments BUN (test code = BUN) 17 7-22 [place] 454360-12-06 04:34:00 Test Item Value Reference Range Interpretation Comments Creatinine Lvl (test code = Creatinine 1.51 0.50-1.40 Lvl) [place] 454360-12-06 04:34:00 Test Item Value Reference Range Interpretation Comments Sodium Lvl (test code = Sodium Lvl) 142 135-145 [place] 454360-12-06 04:34:00 Test Item Value Reference Range Interpretation Comments Potassium Lvl (test code = Potassium 4.0 3.5-5.1 Lvl) [place] 454360-12-06 04:34:00 Test Item Value Reference Range Interpretation Comments Chloride Lvl (test code = Chloride Lvl) 108 95-109 [place] 454360-12-06 04:34:00 Test Item Value Reference Range Interpretation Comments CO2 (test code = CO2) 30 24-32 [place] 454360-12-06 04:34:00 Test Item Value Reference Range Interpretation Comments Calcium Lvl (test code = Calcium Lvl) 7.8 8.5-10.5 [place] 454360-12-06 04:34:00 Test Item Value Reference Range Interpretation Comments AGAP (test code = AGAP) 8.0 10.0-20.0 [place] 454360-12-06 04:34:00 Test Item Value Reference Range Interpretation Comments eGFR (test code = eGFR) 33 [place] [address]-12-06 04:34:00 Test Item Value Reference Range Interpretation Comments WBC X 10x3 (test code = WBC X 10x3) 9.7 3.7-10.4 [place] [address]-12-06 04:34:00 Test Item Value Reference Range Interpretation Comments RBC X 10x6 (test code = RBC X 10x6) 3.96 4.20-5.40 [place] [address]-12-06 04:34:00 Test Item Value Reference Range Interpretation Comments Hgb (test code = Hgb) 10.6 12.0-16.0 [place] [address]-12-06 04:34:00 Test Item Value Reference Range Interpretation Comments Hct (test code = Hct) 32.6 36.0-48.0 [place] 633380-12-06 04:34:00 Test Item Value Reference Range Interpretation Comments MCV (test code = MCV) 82.3 80.0-98.0 [place] [address]-12-06 04:34:00 Test Item Value Reference Range Interpretation Comments MCH (test code = MCH) 26.6 pg 27.0-31.0 [place] [address]-12-06 04:34:00 Test Item Value Reference Range Interpretation Comments MCHC (test code = MCHC) 32.4 32.0-36.0 [place] 633380-12-06 04:34:00 Test Item Value Reference Range Interpretation Comments RDW (test code = RDW) 16.8 11.5-14.5 [place] [address]-12-06 04:34:00 Test Item Value Reference Range Interpretation Comments Platelet (test code = Platelet) 178 133-450 [place] 633380-12-06 04:34:00 Test Item Value Reference Range Interpretation Comments MPV (test code = MPV) 8.0 7.4-10.4 [place] [address]-12-06 04:34:00 Test Item Value Reference Range Interpretation Comments PT (test code = PT) 14.7 s 12.0-14.7 [place] [address]-12-06 04:34:00 Test Item Value Reference Range Interpretation Comments INR (test code = INR) 1.14 1 0.85-1.17 [place] [address]-12-06 04:34:00 Test Item Value Reference Range Interpretation Comments PTT (test code = PTT) 31.2 s 22.9-35.8 [place] [address]-12-06 04:34:00 Test Item Value Reference Range Interpretation Comments Segs (test code = Segs) 73.9 45.0-75.0 [place] [address]-12-06 04:34:00 Test Item Value Reference Range Interpretation Comments Lymphocytes (test code = Lymphocytes) 11.0 20.0-40.0 [place] 633380-12-06 04:34:00 Test Item Value Reference Range Interpretation Comments Monocytes (test code = Monocytes) 13.6 2.0-12.0 [place] 633380-12-06 04:34:00 Test Item Value Reference Range Interpretation Comments Eosinophils (test code = 0.7 See_Comment [A utomated message] The Eosinophils) system which ge nerated this result tra nsmitted reference range : <=4.0. The reference r christiano was not used to int erpret this result as normal/abnormal . [place] 633380-12-06 04:34:00 Test Item Value Reference Range Interpretation Comments Basophils (test code = 0.8 See_Comment [Aut omated message] The Basophils) system which ge nerated this result tra nsmitted reference range : <=1.0. The reference r christiano was not used to int erpret this result as normal/abnormal . [place] 633380-12-06 04:34:00 Test Item Value Reference Range Interpretation Comments Neutrophils # (test code = Neutrophils 7.2 1.5-8.1 #) [place] [address]-12-06 04:34:00 Test Item Value Reference Range Interpretation Comments Lymphocytes # (test code = Lymphocytes 1.1 1.0-5.5 #) [place] [address]-12-06 04:34:00 Test Item Value Reference Range Interpretation Comments Monocytes # (test code 1.3 See_Comment [Aut omated message] The = Monocytes #) system which generated this result tra nsmitted reference range : <=0.8. The reference r christiano was not used to int erpret this result as normal/abnormal . [place] 633380-12-06 04:34:00 Test Item Value Reference Range Interpretation Comments Eosinophils # (test code 0.1 See_Comment [A utomated message] The = Eosinophils #) system whic h generated this result tra nsmitted reference range : <=0.5. The reference r christiano was not used to int erpret this result as normal/abnormal . [place] 633380-12-06 04:34:00 Test Item Value Reference Range Interpretation Comments Basophils # (test code 0.1 See_Comment [Aut omated message] The = Basophils #) system which generated this result tra nsmitted reference range : <=0.2. The reference r christiano was not used to int erpret this result as normal/abnormal . [facility] [id number] 04:34:00 Test Item Value Reference Range Interpretation Comments Troponin-I (test code no gt See_Comment [Auto mated message] The = Troponin-I) system which g enerated this result transmit sheba reference range : <=0.40. The reference r christiano was not used to interpr et this result as edy l/abnormal. [facility] [employer] [id number] 04:34:00 Test Item Value Reference Range Interpretation Comments Glucose Lvl (test code = Glucose Lvl) 125 70-99 [facility] [id number] 04:34:00 Test Item Value Reference Range Interpretation Comments BUN (test code = BUN) 17 7-22 [facility] [employer] [id number] 04:34:00 Test Item Value Reference Range Interpretation Comments Creatinine Lvl (test code = Creatinine 1.51 0.50-1.40 Lvl) [facility] [employer] [id number] 04:34:00 Test Item Value Reference Range Interpretation Comments Sodium Lvl (test code = Sodium Lvl) 142 135-145 [facility] [id number] 04:34:00 Test Item Value Reference Range Interpretation Comments Potassium Lvl (test code = Potassium 4.0 3.5-5.1 Lvl) [facility] [id number] 04:34:00 Test Item Value Reference Range Interpretation Comments Chloride Lvl (test code = Chloride Lvl) 108 95-109 [facility] [id number] 04:34:00 Test Item Value Reference Range Interpretation Comments CO2 (test code = CO2) 30 24-32 [facility] [id number] 04:34:00 Test Item Value Reference Range Interpretation Comments Calcium Lvl (test code = Calcium Lvl) 7.8 8.5-10.5 [facility] [id number] 04:34:00 Test Item Value Reference Range Interpretation Comments AGAP (test code = AGAP) 8.0 10.0-20.0 [facility] [id number] 04:34:00 Test Item Value Reference Range Interpretation Comments eGFR (test code = eGFR) 33 [facility] HospitalDdnhqrbWJJLGDBUFH8635-85-26 04:34:00 Test Item Value Reference Range Interpretation Comments WBC X 10x3 (test code = WBC X 10x3) 9.7 3.7-10.4 [facility] HospitalCpdayluQUCPQDYREC8243-84-97 04:34:00 Test Item Value Reference Range Interpretation Comments RBC X 10x6 (test code = RBC X 10x6) 3.96 4.20-5.40 [facility] HospitalLyaixbeFQXSIRPDIE7796-24-16 04:34:00 Test Item Value Reference Range Interpretation Comments Hgb (test code = Hgb) 10.6 12.0-16.0 [place] 633380-12-06 04:34:00 Test Item Value Reference Range Interpretation Comments Hct (test code = Hct) 32.6 36.0-48.0 [facility] HospitalPsorhalTVOILPCBTT1316-32-08 04:34:00 Test Item Value Reference Range Interpretation Comments MCV (test code = MCV) 82.3 80.0-98.0 [facility] HospitalEnozwmmSPYBFSBFYI5144-62-34 04:34:00 Test Item Value Reference Range Interpretation Comments MCH (test code = MCH) 26.6 pg 27.0-31.0 [place] 633380-12-06 04:34:00 Test Item Value Reference Range Interpretation Comments MCHC (test code = MCHC) 32.4 32.0-36.0 [facility] HospitalTopbcvqCTSTDHVQXV3916-45-21 04:34:00 Test Item Value Reference Range Interpretation Comments RDW (test code = RDW) 16.8 11.5-14.5 [facility] HospitalIofydaiDCYXPKZZNP7553-05-29 04:34:00 Test Item Value Reference Range Interpretation Comments Platelet (test code = Platelet) 178 133-450 [facility] HospitalBfjlpuuIQXGRMXCCO4927-44-49 04:34:00 Test Item Value Reference Range Interpretation Comments MPV (test code = MPV) 8.0 7.4-10.4 [facility] HospitalMvtjkwpWIXTSTTKPX6103-99-19 04:34:00 Test Item Value Reference Range Interpretation Comments PT (test code = PT) 14.7 s 12.0-14.7 [facility] HospitalFvyueftIVQFDUYQQP6297-19-87 04:34:00 Test Item Value Reference Range Interpretation Comments INR (test code = INR) 1.14 1 0.85-1.17 [facility] HospitalBorksgtKTVBQQBTWY4771-44-12 04:34:00 Test Item Value Reference Range Interpretation Comments PTT (test code = PTT) 31.2 s 22.9-35.8 [place] 633380-12-06 04:34:00 Test Item Value Reference Range Interpretation Comments Segs (test code = Segs) 73.9 45.0-75.0 [place] 633380-12-06 04:34:00 Test Item Value Reference Range Interpretation Comments Lymphocytes (test code = Lymphocytes) 11.0 20.0-40.0 [place] 633380-12-06 04:34:00 Test Item Value Reference Range Interpretation Comments Monocytes (test code = Monocytes) 13.6 2.0-12.0 [place] [address]-12-06 04:34:00 Test Item Value Reference Range Interpretation Comments Eosinophils (test code = 0.7 See_Comment [A utomated message] The Eosinophils) system which ge nerated this result tra nsmitted reference range : <=4.0. The reference r christiano was not used to int erpret this result as normal/abnormal . [place] 633380-12-06 04:34:00 Test Item Value Reference Range Interpretation Comments Basophils (test code = 0.8 See_Comment [Aut omated message] The Basophils) system which ge nerated this result tra nsmitted reference range : <=1.0. The reference r christiano was not used to int erpret this result as normal/abnormal . [place] 633380-12-06 04:34:00 Test Item Value Reference Range Interpretation Comments Neutrophils # (test code = Neutrophils 7.2 1.5-8.1 #) [place] 633380-12-06 04:34:00 Test Item Value Reference Range Interpretation Comments Lymphocytes # (test code = Lymphocytes 1.1 1.0-5.5 #) [place] [address]-12-06 04:34:00 Test Item Value Reference Range Interpretation Comments Monocytes # (test code 1.3 See_Comment [Aut omated message] The = Monocytes #) system which generated this result tra nsmitted reference range : <=0.8. The reference r christiano was not used to int erpret this result as normal/abnormal . [place] [address]-12-06 04:34:00 Test Item Value Reference Range Interpretation Comments Eosinophils # (test code 0.1 See_Comment [A utomated message] The = Eosinophils #) system whic h generated this result tra nsmitted reference range : <=0.5. The reference r christiano was not used to int erpret this result as normal/abnormal . [facility] CenterJveoocrISDRQDINVJ9909-53-85 04:34:00 Test Item Value Reference Range Interpretation Comments Basophils # (test code 0.1 See_Comment [Aut omated message] The = Basophils #) system which generated this result tra nsmitted reference range : <=0.2. The reference r christiano was not used to int erpret this result as normal/abnormal . [facility] SHOULDER 2+ VW [id number] 17:54:27 Comminuted distal clavicle fracture. EXAM: XR [...] in the aortic arch.IMPRESSIONComminuted distal clavicle fracture. [facility] VW [id number] 17:53:09 No acute bony abnormality. EXAM: XR [...] fracture or dislocation is seen.IMPRESSIONNo acute bony abnormality.[facility]
--- NOTE | 2023-07-26 18:49 | RAD REPORT ---
EXAM DESCRIPTION: Vishnu Single View07/26/2023 6:37 pm CLINICAL HISTORY: Chest pain COMPARISON: June 2023 FINDINGS: The lungs appear clear of acute infiltrate. The heart is mildly enlarged. PICC line placed IMPRESSION: No acute abnormalities displayed
[2023-07-26 18:58] LABS: Platelets 228 thou/uL (152-406)
[2023-07-26 19:00] LABS: Protime INR 1.1
[2023-07-26 19:19] LABS: Magnesium 2.3 mg/dL (1.6-2.4); Potassium 3.3 mEq/L (3.5-5.1)
[2023-07-26 19:20] LABS: Troponin High Sensitivity 76.3 pg/mL (<58.9)
[2023-07-26 19:24] LABS: Absolute Lymphocytes (CBC) 1.5 K/uL (0.7-4.9); Lymphocytes % 16.7 % (15.3-44.8); MCV 84.4 fL (80-100); MPV 7.4 fL (7.6-11.3); RBC Red Blood Cell Count 3.56 M/uL (3.86-4.86)
--- NOTE | 2023-07-26 20:13 | RAD REPORT ---
EXAM DESCRIPTION: CT - Head Brain Wo Cont - 07/26/2023 7:59 pm CLINICAL HISTORY: Dizziness COMPARISON: June 2023 TECHNIQUE: Computed axial tomography of the head was obtained. IV contrast was not requested. All CT scans are performed using dose optimization technique as appropriate and may include automated exposure control or mA/KV adjustment according to patient size. FINDINGS: An intracranial bleed is not seen The ventricles are normal in caliber No extra-axial fluid collection is noted. Mild to moderate low-density areas within periventricular, deep and subcortical white matter likely r epresent ischemic changes secondary to small vessel disease. Fluid within the sinuses/ mastoids is not seen. IMPRESSION: No acute intracranial abnormality is seen If patient's symptoms persist MRI of the brain would be recommended
--- NOTE | 2023-07-26 20:33 | ER ---
Nurse's Notes [facility] [place] Name: Radha Bentley Age: 82 yrs Sex: Female : 1940 Arrival Date: 07/26/2023 Time: 17:13 Bed 17 Private MD: Diagnosis: Hypertensive heart and chronic kidney disease with heart failure and stage 1 through stage 4 chronic kidney disease, or unspecified chronic kidney disease;Dyspnea;Chest pain, unspecified;Dizziness and giddiness Presentation: 07/26 17:20 Chief complaint: EMS states: PATIENT WITH DIZZINESS, CHEST FLUTTER AND 2 RUNS OF TACHY db AFIB RVR WITH PAC FOR EMS. BP 202/74 FOR EMS. PT ON ANTIBIOTICS THROUGH PICC FOR BACTERIAL INFECTION. Coronavirus screen: Vaccine status: Patient reports receiving the 2nd dose of the covid vaccine. Client denies travel out of the [place] in the last 14 days. At this time, the client does not indicate any symptoms associated with coronavirus-19. Ebola Screen: Patient negative for fever greater than or equal to 101.5 degrees Fahrenheit, and additional compatible Ebola Virus Disease symptoms Patient denies exposure to infectious person. Patient denies travel to an Ebola-affected area in the 21 days before illness onset. No symptoms or risks identified at this time. Initial Sepsis Screen: Does the patient meet any 2 criteria? No. Patient's initial sepsis screen is negative. Does the patient have a suspected source of infection? No. Patient's initial sepsis screen is negative. Risk Assessment: Do you want to hurt yourself or someone else? Patient reports no desire to harm self or others. Onset of symptoms was July 26, 2023. 17:20 Method Of Arrival: EMS: [facility] db 17:20 Acuity: VAIBHAV 2 db Triage Assessment: 17:32 General: Appears in no apparent distress. comfortable, Behavior is calm, cooperative. db Pain: Complains of pain in chest, right leg and left leg. Neuro: Level of Consciousness is awake, alert, obeys commands, Oriented to person, place, time, situation. Cardiovascular: Reports palpitations. Historical: - Allergies: 17:32 Avelox; db 17:32 Band-aid adhesive; db - PMHx: 17:32 ADD/ADHD; COPD; Heart Murmur; Hyperlipidemia; Hypertension; Hypothyroidism; kidney db disease; - PSHx: 17:32 bilateral knee replacement; breast reduction; Cholecystectomy; Shoulder replacment; db - Immunization history:: Client reports receiving the 2nd dose of the Covid vaccine. - Social history:: Smoking status: Patient denies any tobacco usage or history of. Screenin:30 Tuberculosis screening: No symptoms or risk factors identified. db 19:07 [facility] ED Fall Risk Assessment (Adult) History of falling in the last 3 months, db including since admission No falls in past 3 months (0 pts) Score/Fall Risk Level 0 - 2 = Low Risk Oriented to surroundings, Maintained a safe environment. Abuse screen: Denies threats or abuse. Denies injuries from another. Nutritional screening: No deficits noted. Assessment: 18:30 Reassessment: Patient appears in no apparent distress at this time. Patient and/or db family updated on plan of care and expected duration. Pain level reassessed. Patient is alert, oriented x 3, equal unlabored respirations, skin warm/dry/pink. SON IS AT BEDSIDE. General: Appears in no apparent distress. comfortable, Behavior is calm, cooperative. Pain: Complains of pain in chest and left leg and right leg. Pain: Pain does not radiate. Neuro: Level of Consciousness is awake, alert, obeys commands, Oriented to person, place, time, situation, Speech is normal. Cardiovascular: Capillary refill < 3 seconds. Respiratory: Airway is patent Respiratory effort is even, unlabored, Respiratory pattern is regular, symmetrical. 19:45 Reassessment: Patient appears in no apparent distress at this time. Patient denies pain kl at this time. Patient states symptoms have improved. Vital Signs: 17:20 BP 196 / 65; Pulse 66; Resp 18; Temp 98(O); Pulse Ox 98% on R/A; Weight 75.93 kg; db Height 4 ft. 11 in. ; 17:30 BP 196 / 65; Pulse 66; Resp 16; Pulse Ox 100% ; db 18:30 BP 197 / 64; Pulse 62; Resp 16; Pulse Ox 98% on R/A; db 23:09 BP 189 / 79; Pulse 64; Resp 20; Pulse Ox 98% on R/A; kl 17:20 Body Mass Index 33.81 (75.93 kg, 149.86 cm) ED Course: 17:27 Patient arrived in ED. db 17:30 Snehal Aponte, RN is Primary Nurse. db 17:32 Ady Bower PA is PHCP. cp 17:32 Ady Cuellar MD is Attending Physician. cp 17:32 Triage completed. db 17:32 Arm band placed on Patient placed in an exam room. db 18:00 Accessed PICC line. RIGHT UPPER ARM. db 18:30 No provider procedures requiring assistance completed. Maintain EMS IV. Dressing db intact. Good blood return noted. Site clean \T\ dry. Gauge \T\ site: 20G LEFT AC. 18:39 XRAY Chest (1 view) In Process Unspecified. EDMS 20:01 CT Head Brain wo Cont In Process Unspecified. EDMS 20:31 Marco A Nevarez MD is Hospitalizing Provider. cp 22:00 No apparent distress. Resting quietly. kl 23:11 Patient admitted, IV remains in place. kl Administered Medications: 20:56 Drug: Furosemide IVP 40 mg IVP once; give over 2 minutes Route: IVP; Site: left kl antecubital; 20:56 Drug: Aspirin PO Chewable Tablet 324 mg PO once; 81 mg tablets x 4 Route: PO; kl 20:56 Drug: Potassium PO Effervescent Tablet 50 mEq PO once; dissolve in 4 ounces of water or kl juice Route: PO; Medication: 19:09 VIS not applicable for this client. db Outcome: 20:33 Decision to Hospitalize by Provider. cp 23:10 Admitted to Med/surg accompanied by tech, room 1, with chart, Report called to otf [place] 23:10 Condition: stable 23:10 Discharge instructions given to patient, Instructed on the need for admit, Demonstrated understanding of instructions, 23:12 Patient left the ED. Signatures: Dispatcher [employer] EDMS Aline Hatfield, RN RN Ady Murdock PA PA cp Snehal Aponte, RN RN db
--- NOTE | 2023-07-26 20:34 | EDPHYS ---
Physician Documentation [facility] Name: Radha Bentley Age: 82 yrs Sex: Female : 1940 Arrival Date: 07/26/2023 Time: 17:13 Bed 17 Private MD: ED Physician Ady Cuellar HPI: 07/26 17:45 This 82 yrs old Female presents to ER via EMS with complaints of Dizziness, Chest Pain. cp 17:45 The patient presents with dizziness, lightheadedness. cp 17:45 Onset: The symptoms/episode began/occurred yesterday, and became worse today. cp Associated signs and symptoms: Pertinent positives: chest pain, palpitations, edema, Pertinent negatives: abdominal pain, diaphoresis, focal weakness, headache, vomiting. 17:45 Severity of symptoms: in the emergency department the symptoms are unchanged despite cp home interventions. Historical: - Allergies: 17:32 Avelox; db 17:32 Band-aid adhesive; db - PMHx: 17:32 ADD/ADHD; COPD; Heart Murmur; Hyperlipidemia; Hypertension; Hypothyroidism; kidney db disease; - PSHx: 17:32 bilateral knee replacement; breast reduction; Cholecystectomy; Shoulder replacment; db - Immunization history:: Client reports receiving the 2nd dose of the Covid vaccine. - Social history:: Smoking status: Patient denies any tobacco usage or history of. ROS: 17:50 Constitutional: Negative for body aches, chills, fever, poor PO intake, cp 17:50 Eyes: Negative for injury, pain, redness, and discharge, cp 17:50 ENT: Negative for drainage from ear(s), ear pain, sore throat, difficulty swallowing, difficulty handling secretions, 17:50 Cardiovascular: Positive for chest pain, edema, palpitations, 17:50 Respiratory: Positive for shortness of breath, on exertion. 17:50 Abdomen/GI: Negative for abdominal pain, nausea, diarrhea, constipation, 17:50 : Negative for urinary symptoms, 17:50 Neuro: Positive for dizziness, Negative for altered mental status, headache, numbness, syncope, 17:50 All other systems are negative, Exam: 17:55 Constitutional: The patient appears in no acute distress, alert, awake, cp non-diaphoretic, non-toxic, well developed, well nourished, 17:55 Head/Face: Normocephalic, atraumatic. cp 17:55 Eyes: Periorbital structures: appear normal, Conjunctiva: normal, no exudate, no injection, Sclera: no appreciated abnormality, Lids and lashes: appear normal, bilaterally, 17:55 ENT: External ear(s): are unremarkable, Nose: is normal, Mouth: Lips: moist, Oral mucosa: pink and intact, moist, Posterior pharynx: is normal, airway is patent, no erythema, no exudate, 17:55 Neck: ROM/movement: is normal, is supple, without pain, no range of motions limitations, 17:55 Chest/axilla: Inspection: normal, 17:55 Cardiovascular: Rate: normal, Rhythm: regular, Edema: ankle edema, that is moderate, JVD: is not appreciated, 17:55 Respiratory: the patient does not display signs of respiratory distress, Respirations: labored breathing, that is mild, Breath sounds: decreased breath sounds, that are mild, throughout, stridor, is not appreciated, wheezing: is not appreciated, 17:55 Abdomen/GI: Inspection: abdomen appears normal, Bowel sounds: active, all quadrants, Palpation: abdomen is soft and non-tender, in all quadrants, 17:55 Back: pain, is absent, ROM is normal, 17:55 Skin: cellulitis, is not appreciated, no rash present. 17:55 Neuro: Orientation: to person, place \T\ time. Mentation: is normal, Motor: moves all fours, strength is normal, Sensation: is normal, 18:55 ECG was reviewed by the Attending Physician. cp Vital Signs: 17:20 BP 196 / 65; Pulse 66; Resp 18; Temp 98(O); Pulse Ox 98% on R/A; Weight 75.93 kg; db Height 4 ft. 11 in. ; 17:30 BP 196 / 65; Pulse 66; Resp 16; Pulse Ox 100% ; db 18:30 BP 197 / 64; Pulse 62; Resp 16; Pulse Ox 98% on R/A; db 23:09 BP 189 / 79; Pulse 64; Resp 20; Pulse Ox 98% on R/A; kl 17:20 Body Mass Index 33.81 (75.93 kg, 149.86 cm) db MDM: 17:32 Patient medically screened. cp 20:25 Data reviewed: vital signs, nurses notes, lab test result(s), EKG, radiologic studies, cp CT scan, plain films. 20:25 Differential diagnosis: CVA, idiopathic dizziness, CHF, COPD exacerbation, acute VA. cp Consideration of Admission/Observation Patient was admitted/placed on observation. Management of patient was discussed with the following: Hospitalist: DR Franklin will admit after discussion. I considered the following discharge prescriptions or medication management in the emergency department Medications were administered in the Emergency Department. See MAR. Care significantly affected by the following chronic conditions: Congestive Heart Failure, Chronic Obstructive Pulmonary Disease, Chronic Kidney Disease. Counseling: I had a detailed discussion with the patient and/or guardian regarding the historical points, exam findings, and any diagnostic results supporting the discharge/admit diagnosis, lab results, radiology results, the need for further work-up and treatment in the hospital. 07/26 17:42 Order name: Basic Metabolic Panel; Complete Time: 19:31 cp 07/26 19:31 Interpretation: Normal except: K 3.3; GLUC 116; CRE 1.83; GFR 28; CA 8.1. cp 07/26 17:42 Order name: CBC with Diff; Complete Time: 19:31 cp 07/26 19:32 Interpretation: Normal except: RBC 3.56; HGB 9.9; HCT 30.0; RDW 17.0; MPV 7.4; BASO% cp 1.5. 07/26 17:42 Order name: Magnesium; Complete Time: 19:31 cp 07/26 17:42 Order name: NT PRO-BNP; Complete Time: 19:31 cp 07/26 19:32 Interpretation: Abnormal: NT PRO-BNP 63185. cp 07/26 17:42 Order name: PT-INR; Complete Time: 19:31 cp 07/26 17:42 Order name: Troponin HS; Complete Time: 19:31 cp 07/26 19:32 Interpretation: Abnormal: Troponin HS 76.3. cp 07/26 17:42 Order name: COVID-19 SARS RT PCR; Complete Time: 19:58 cp 07/26 19:33 Order name: Lactate w/ 2H reflex if indic. cp 07/26 19:33 Order name: Urinalysis W/Microscopic cp 07/26 20:39 Order name: Lipid Profile EDMS 07/26 20:39 Order name: Lipid Profile EDMS 07/26 20:39 Order name: Troponin High Sensitivity EDMS 07/26 20:39 Order name: Troponin High Sensitivity EDMS 07/26 20:39 Order name: Troponin High Sensitivity EDMS 07/26 20:39 Order name: Troponin High Sensitivity EDMS 07/26 17:42 Order name: XRAY Chest (1 view); Complete Time: 19:31 cp 07/26 19:33 Order name: CT Head Brain wo Cont; Complete Time: 20:18 cp 07/26 17:42 Order name: EKG; Complete Time: 17:43 cp 07/26 17:42 Order name: Cardiac monitoring; Complete Time: 18:44 cp 07/26 17:42 Order name: EKG - Nurse/Tech; Complete Time: 18:51 cp 07/26 17:42 Order name: IV Saline Lock; Complete Time: 18:44 cp 07/26 17:42 Order name: Labs collected and sent; Complete Time: 18:44 cp 07/26 17:42 Order name: O2 Per Protocol; Complete Time: 18:44 cp 07/26 17:42 Order name: O2 Sat Monitoring; Complete Time: 18:44 cp EC:55 Rate is 60 beats/min. Rhythm is regular. MO interval is prolonged at 264 msec. QRS cp interval is prolonged at 126 msec. QT interval is normal. T waves are Inverted in leads V2, V3, V4, V5. Interpreted by me. Reviewed by me. Administered Medications: 20:56 Drug: Furosemide IVP 40 mg IVP once; give over 2 minutes Route: IVP; Site: left kl antecubital; 20:56 Drug: Aspirin PO Chewable Tablet 324 mg PO once; 81 mg tablets x 4 Route: PO; kl 20:56 Drug: Potassium PO Effervescent Tablet 50 mEq PO once; dissolve in 4 ounces of water or kl juice Route: PO; Disposition Summary: 07/26/23 20:33 Hospitalization Ordered Notes: Hospitalization Status: Inpatient Admission cp Provider: Marco A Nevarez cp Condition: Stable cp Problem: an acute exacerbation cp Symptoms: have improved cp Bed/Room Type: Standard cp Location: Intensive Care Unit(07/26/23 22:52) cg Room Assignment: 1-(07/26/23 22:52) cg Diagnosis - Hypertensive heart and chronic kidney disease with heart failure and stage 1 cp through stage 4 chronic kidney disease, or unspecified chronic kidney disease - Dyspnea cp - Chest pain, unspecified cp - Dizziness and giddiness cp Forms: - Medication Reconciliation Form cp - SBAR form cp - Leadership Thank You Letter cp Signatures: Dispatcher [employer] Aline Narayan, RN RN Ady Murdock PA PA cp Garcia, Cindy, RN RN Snehal Wilkes RN RN db Corrections: (The following items were deleted from the chart) : 20:33 Telemetry/MedSurg (Inpatient) cp cg : 20:33 cp cg 22:52 21:19 [facility] ER HOLD cg cg 22:52 21:19 ERHOLD- cg cg
[2023-07-26] MEDS ORDERED: ONDANSETRON 4 MG/2 ML VIAL IV PRN (20:35)
[2023-07-26] MEDS ORDERED: MAGNESIUM HYDROXIDE 8% 30 ML PO PRN (20:35)
--- NOTE | 2023-07-26 20:43 | P.HP ---
Certification for Inpatient Patient admitted to: Observation With expected LOS: <2 Midnights Practitioner: I am a practitioner with admitting privileges, knowledge of patient current condition, hospital course, and medical plan of care. Services: Services provided to patient in accordance with Admission requirements found in Title 42 Section 412.3 of the Code of Federal Regulations Patient History Date of Service: 07/27/23 Reason for admission: CHF exacerbation, volume overload. History of Present Illness: 82-year-old female patient with medical history significant for hypertension, hyperlipidemia, hypothyroidism, chronic atrial fibrillation, CKD stage IV and systolic CHF was evaluated for episode of worsening shortness of breath. She has orthopnea and leg swelling and has been having difficulty breathing for the past couple of days. She takes Lasix 40 mg p.o. twice daily at home however swelling did not improve so she decided come to the ED. In the ED she had genoveva vated proBNP and creatinine of 1.9. She was found to have volume overload so she was given IV Lasix and she was admitted for diuresis. She denies overt episode of chest pain, fever, chills, rigor, nausea, vomiting. Allergies moxifloxacin HCl [From Avelox] Allergy (Intermediate, Verified 09/20/22 19:25) Itching/Hives/Rash adhesive [Adhesive] Adverse Reaction (Intermediate, Verified 09/20/22 19:25) Rash band-aid adhesive Allergy (Uncoded 10/03/17 08:51) Unknown Home Medications: Escitalopram Oxalate [Lexapro] 20 mg PO BID 11/19/11 Levothyroxine [Synthroid*] 0.125 mg PO DAILY 11/19/11 Pantoprazole [Protonix Tab*] 1 tab PO BID 06/28/21 Famotidine 20 mg PO BEDTIME 09/21/22 Lovastatin 20 mg PO DAILY 04/13/23 Amlodipine [Norvasc*] 5 mg PO DAILY 06/21/23 Clonidine HCl [Catapres*] 0.2 mg PO BID 06/21/23 Donepezil [Aricept*] 10 mg PO BEDTIME 06/21/23 Febuxostat [Uloric] 40 mg PO DAILY 06/21/23 buPROPion HCL [Bupropion HCl Sr] 150 mg PO BID 06/21/23 carvediloL [Carvedilol] 6.25 mg PO BID 06/21/23 oxyBUTYnin chloride [Oxybutynin Chloride] 5 mg PO TID 06/21/23 Amiodarone HCl [Cordarone*] 200 mg PO BID tab 06/28/23 Furosemide [Lasix*] 40 mg PO BID 07/27/23 - Past Medical/Surgical History Diabetic: No -: Hypertension -: Dyslipidemia -: Hypothyroidism -: Restless leg syndrome -: Gastroesophageal reflux disease -: depression -: Chronic diastolic congestive heart failure -: CKD 4 -: Arthritis -: Eczema -: Bilateral knee replacement -: left shoulder replacement 2011 -: breast reduction -: gastric banding -: removal of adhesions and scar tissue -: benein tumor removal Psychosocial/ Personal History: Patient is retired, lives at home with her family - Family History MOM -: Cancer Notes: BREAST FATH -: Cancer Notes: [place] - Social History Alcohol use: No CD- Drugs: No Caffeine use: Yes Review of Systems Eyes: Unremarkable ENT: Unremarkable Respiratory: Shortness of Breath, SOB with Excertion Cardiovascular: Orthopnea, Paroxysmal Noc. Dyspnea Gastrointestinal: Unremarkable Genitourinary: Unremarkable Musculoskeletal: Pedal edema Integumentary: Unremarkable Neurological: Unremarkable Physical Examination - Physical Exam General: Alert, Oriented x3 HEENT: Atraumatic, Normocephalic Respiratory: Normal air movement Cardiovascular: Regular rate/rhythm, Normal S1 S2 Gastrointestinal: Soft and benign Musculoskeletal: Swelling Neurological: Normal speech - Studies Laboratory Data (last 24 hrs) 07/26/23 07/26/23 07/26/23 18:34 18:34 18:34 WBC 9.00 Hgb 9.9 L Hct 30.0 L Plt Count 228 PT 12.1 INR 1.10 Sodium 139 Potassium 3.3 L BUN 18 Creatinine 1.83 H Glucose 116 H Magnesium 2.3 Assessment and Plan - Plan CHF exacerbation: Systolic variety. Lasix therapy has been started for management. Continue fluid restriction of 1.5 L/day. Continue low-sodium diet. We will continue routine monitoring of input and output and daily weights. Hypertension: We will monitor vital signs per unit protocol and continue outpatient antihypertensive medications. Chronic atrial fibrillation: We will continue Eliquis for anticoagulation Hypothyroidism: We will continue levothyroxine. CKD stage IV: Creatinine is elevated at 1.8. This is deemed CKD stage hospitalist history and chart review. We will continue to avoid nephrotoxins and dose medication for symmetric, filtration. Hyperlipidemia: We will continue statin therapy. History of dementia: We will continue outpatient dementia medications. Prophylaxis: Maria Luisaquisabel will suffice for DVT prophylaxis and chronic atrial fibrillation CODE STATUS: Full code Disposition: We will treat her CHF exacerbation and discharge her when she is deemed clinically stable. - Advance Directives Does patient have a Living Will: Yes Does patient have a Durable POA for Healthcare: No
[2023-07-26] MEDS ORDERED: POTASSIUM 25 MEQ EFFERV TAB ONE (20:57)
[2023-07-26] MEDS ORDERED: FUROSEMIDE 40 MG/4 ML VIAL ONE (20:57)
[2023-07-26] MEDS ORDERED: ASPIRIN 81 MG CHEWABLE TABLET ONE (20:57)
[2023-07-26] MEDS: FUROSEMIDE 20 MG/ 2ML VIAL IV SCH (21:00)
[2023-07-26 21:25] LABS: Specific Gravity 1.012 (1.005-1.030); Urine Bacteria <20 /HPF (<20); Urine Bilirubin NEGATIVE (Negative); Urine Blood Negative (Negative); Urine Clarity Turbid (Clear); Urine Color Light-Yellow (Yellow); Urine Crystals Unidentified Few /HPF (None Seen); Urine Glucose NEGATIVE (Negative); Urine Mucus Slight /HPF (None Seen); Urine Protein 1+ (Negative); Urine RBC <5 /HPF (None Seen); Urine Urobilinogen Normal (Normal); Urine pH 6.5 (5.0-7.0)
[2023-07-27] MEDS: HEPARIN 5000 UNIT/ML 1 ML VIAL SQ SCH ×2 (01:42→09:00)
[2023-07-27] MEDS: FUROSEMIDE 20 MG/ 2ML VIAL IV SCH ×3 (04:55→21:00)
[2023-07-27 05:00] LABS: Troponin High Sensitivity 70.3 pg/mL (<58.9)
[2023-07-27] MEDS ORDERED: INFLUENZA VACCINE (for 6+ mo) 0.5 ML DOSE IMVAC ONE (08:00)
[2023-07-27] MEDS: cloNIDine HCL 0.1 MG TAB PO SCH ×2 (08:40→21:06)
[2023-07-27] MEDS ORDERED: AMLODIPINE 5 MG TAB PO SCH (09:00)
--- NOTE | 2023-07-27 11:15 | P.PN ---
Subjective Date of Service: 07/27/23 Chief Complaint: CHF exacerbation, volume overload. No acute events overnight. She reports that her breathing is much improved compared to admission. She denies any chest pain or palpitations. Review of Systems 10-point ROS is otherwise unremarkable Respiratory: Shortness of Breath Cardiovascular: Orthopnea, Edema Physical Examination - Vital Signs Temperature: 98.4 F Blood Pressure: 183/73 Pulse: 61 Respirations: 17 Pulse Ox (%): 100 - Physical Exam General: Alert, In no apparent distress, Oriented x3 HEENT: Atraumatic, Mucous membr. moist/pink, Sclerae nonicteric Neck: JVD not distended Respiratory: Diminished, Crackles/rales (bibasilar) Cardiovascular: Regular rate/rhythm, Normal S1 S2, No murmurs, Edema Gastrointestinal: Normal bowel sounds, Soft and benign, Non-distended, No tenderness, No rebound, No guarding Musculoskeletal: No clubbing Integumentary: No rashes Neurological: Normal speech, Normal affect - Studies Laboratory Data (last 24 hrs) 07/26/23 07/26/23 07/26/23 18:34 18:34 18:34 WBC 9.00 Hgb 9.9 L Hct 30.0 L Plt Count 228 PT 12.1 INR 1.10 Sodium 139 Potassium 3.3 L BUN 18 Creatinine 1.83 H Glucose 116 H Magnesium 2.3 Assessment And Plan - Plan # Acute on Chronic Decompensated Systolic Congestive Heart Failure with Reduced Ejection Fraction - improved # Moderate Pulmonary Hypertension # Hypertension - Consult Cardiology - recommendations appreciated - Chest x-ray = "no acute abnormalities displayed" - Transthoracic echocardiogram (June 2023) = "1. mildly depressed left ventricular ejection fraction 40-45%. 2. apical hypokineisis. 3. left atrial enlargement. 4. mild tricuspid regurgitation." - Diuresis per Cardiology - Daily weights - Strict I/O - Cardiac diet, 1.5 L fluid restriction, 2 g Na restriction # Chronic Atrial Fibrillation - Cardiology consulted - recommendations appreciated - Continue carvedilol, amiodarone, apixaban # Suspect Demand Ischemia (Type II Non-ST Segment Elevation Myocardial Infarction) due to above - Cardiology consulted - recommendations appreciated - EKG without STEMI criteria - Serial troponin = 76.3 -> 75.7 -> 70.3 - Monitor telemetry # Chronic Kidney Disease Stage IV # Anemia of Chronic Kidney Disease - Creatinine near baseline - Monitor creatinine and urine output - If worsening, obtain renal ultrasound - Renally dose medications # Chronic Respiratory Failure due to Chronic Obstructive Pulmonary Disease on Home Oxygen (4 L) - No evidence of acute exacerbation - Continue home medications # Dyslipidemia - Continue atorvastatin # Hypothyroidism - Continue home levothyroxine # Depression - Continue home escitalopram # Restless Leg Syndrome - Continue home ropinirole Davide Doyle M.D.
[2023-07-27] MEDS ORDERED: HEPA 1000U/500MLS 2,000 UNIT/1,000 ML BAG IV ONE (14:23)
[2023-07-27] MEDS ORDERED: FENTANYL CITR 100 MCG/2 ML ONE (14:23)
[2023-07-27] MEDS ORDERED: CLOPIDOGREL 75 MG TABLET ONE (14:24)
[2023-07-27] MEDS ORDERED: ASPIRIN 325 MG TAB ONE (14:24)
[2023-07-27] MEDS ORDERED: HEPARIN 5000 UNIT/ML 1 ML VIAL ONE (14:24)
[2023-07-27] MEDS ORDERED: HEPARIN 10,000 UNIT/10 ML VIAL IV ONE (14:24)
[2023-07-27] MEDS ORDERED: MIDAZOLAM HCL 2 MG/2 ML INJ ONE (14:24)
[2023-07-27] MEDS ORDERED: VERAPAMIL HCL 10 MG/4 ML VIAL IV ONE (14:24)
[2023-07-27] MEDS ORDERED: TICAGRELOR 90 MG TABLET PO ONE (14:24)
[2023-07-27] MEDS ORDERED: ATROPINE SULF 1 MG/10 ML SYR IV ONE (14:25)
--- NOTE | 2023-07-27 15:45 | EKG ---
Test Date: 2023-07-26 Test Time: 18:48:01 [employer]: AYESHA MEASUREMENT RESULTS: Intervals: Rate: 60 FL: 264 QRSD: 126 QT: 492 QTc: 492 [place]: P: 67 FL: 264 QRS: -41 T: 240 INTERPRETIVE STATEMENTS: Sinus rhythm with 1st degree AV block Left axis deviation Left ventricular hypertrophy with QRS widening and repolarization abnormality Abnormal ECG Compared to ECG 06/20/2023 21:20:55 Left-axis deviation now present Early repolarization now present Left anterior fascicular block no longer present Myocardial infarct finding no longer present T-wave abnormality no longer present Possible ischemia no longer present Prolonged QT interval no longer present Electronically Signed On 07-27-23 15:42:26 CDT by Andre Arriaga
[2023-07-27] MEDS ORDERED: NA CHLORIDE 0.9% 500 ML ONE (18:17)
[2023-07-27] MEDS ORDERED: FAMOTIDINE 20 MG TAB ONE (18:23)
--- NOTE | 2023-07-27 20:25 | OP ---
Date of Procedure: 07/27/2023 Surgeon: GURPREET COLLINS Procedures Performed: 1.Selective coronary angiogram. 2.Left heart catheterization. 3.PCI of severe proximal RCA stenosis, used 4.0 x 60 mm Synergy drug-eluting stent. Indication: [id number] myocardial infarction. Access: Right femoral artery 6-Paraguayan closed with 6-Paraguayan Angio-Seal. Complications: None. Bleeding: Less than 20 mL. Anesthesia: Total sedation time was 30 minutes. Description Of Procedure: After risks, benefits, and alternatives were explained, patient agreed to procedure and signed informed consent. Patient was brought into the cardiac catheterization laborato ry, prepped and draped in the usual sterile fashion. Then, I accessed right femoral artery using carloz ropuncture kit, ultrasound guidance, fluoroscopy, placed a 6-Par[place]ayan [place] sheath and took a 6-Fren ch JL4 catheter into the aortic root, engaged the left main, took standard views and then exchanged f or 6-Par[place]ayan JR4 catheter over the wire across the aortic valve, measured the LVEDP and pullback did n ot record any gradient and then I engaged the RCA, took standard views and then gave systemic heparin to assure ACT level above 250 throughout the procedure. Loaded with 600 mg of Plavix and 325 mg of aspirin and then I took 6-[place]ayan JR4 guide into the aortic root, engaged the RCA and took a Runthroug h wire into the RCA, placed it distally and the proximal RCA lesion was dilated using a 3.5 balloon t o high pressure and then I placed 4.0 x 60 mm Synergy drug-eluting stent across the area of stenosis with excellent expansion. Then, final angiogram was satisfactory, removed the wire and the catheter and the sheath and placed a 6-[place] Angio-Seal with good hemostasis. Findings: 1.Left main; large and normal. 2.LAD; large vessel. Proximal segment is normal. Very large diagonal branch, which is normal. Aft er diagonal 1 branch takeoff, there is 30% stenosis in mid LAD. Rest of LAD is normal. 3.Left circumflex; small nondominant and normal. There is a ramus that is moderate size with lumina l irregularities. 4.RCA; proximal 90% stenosis, status post successful PCI as above, and in the mid to distal, there a re multiple tandem lesions ranging between 20% and 30%. 5.LVEDP normal at 8 mmHg. Conclusions: 1.Severe proximal RCA stenosis, status post successful PCI as above. 2.Mild coronary artery disease elsewhere. 3.Normal LVEDP. Recommendation: Aspirin, Plavix, and high-dose statin and follow up with her primary pharmaceutical worker po stdischarge. SR/MODL Voice ID: [id number] Report ID: [id number]
--- NOTE | 2023-07-27 20:37 | CON ---
Date of Consultation: 07/27/2023 Reason For Consultation: Elevated troponin. History Of Present Illness: An 82-year-old female with history of hypertension, dyslipidemia, atrial fibrillation, chronic kidney disease, and systolic heart failure reported. Presented with chest gatito n, shortness of breath, orthopnea, lower extremity edema, with Lasix. She felt better, but she has b een having on and off chest pain for the past few days. Past Medical History: As outlined above in HPI. Medications: Refer to reconciliation sheet for detailed list. Allergies: MOXIFLOXACIN. Family History: No mention of coronary artery disease. Social History: She does not smoke or drink. Does not use any drugs. Review of Systems: All systems reviewed are negative except as mentioned in the HPI. Physical Examination: Vital Signs: Reviewed. Head and Neck: Pupils are equal, reactive to light. Intact eye movements. No JVD. No cervical lym phadenopathy. Neck is supple. Thyroid is not enlarged. Lungs: Clear to auscultation bilaterally. No rhonchi, wheezing, or crackles. No accessory muscle u se. Heart: Regular rate and rhythm. No extra sounds. Abdomen: Soft, nontender. Bowel sounds positive. No organomegaly. No masses or hernia. No rigidi ty or rebound. Extremities: Trace edema bilaterally. No clubbing, cyanosis. Intact pulses. Skin: No rash. No nodule. Neurologic: Alert, awake, oriented x3. No acute focal deficits appreciated. Investigations: Troponin peaked at 76. BUN is 18, [place] 1[place] [address], and hemoglob in is 9.9. Assessment And Recommendations: 1.Acute on chronic congestive heart failure exacerbation. The echo showed normal ejection fraction. It is old diastolic dysfunction, but there is a concern about [id number] myocardial infarctio n. Agree with diuresis and monitor BUN, creatinine, and electrolytes. 2.Non-ST elevation myocardial infarction. She is having active chest pain. I will plan for coronar y angiogram on her today as long as she has been off the Eliquis. 3.Atrial fibrillation. This is controlled. Continue current management. 4.Dyslipidemia. Continue statin. SR/MODL Voice ID: [id number] Report ID: [id number]
[2023-07-27] MEDS: ENSURE HIGH PROTEIN 237 ML CAN PO SCH (21:00)
[2023-07-27] MEDS ORDERED: APIXABAN 2.5 MG TABLET PO SCH (21:00)
[2023-07-27] MEDS ORDERED: ATORVASTATIN 10 MG TAB PO SCH (21:00)
[2023-07-27] MEDS: AMIODARONE HCL 200 MG TAB PO SCH (21:00)
[2023-07-27] MEDS: ESCITALOPRAM 20 MG TAB PO SCH (21:00)
[2023-07-27] MEDS ORDERED: carvediloL 6.25 MG TAB PO SCH (21:00)
[2023-07-27] MEDS: ATORVASTATIN 40 MG TAB PO SCH (21:50)
[2023-07-28] MEDS: FUROSEMIDE 20 MG/ 2ML VIAL IV SCH ×3 (05:00→20:18)
[2023-07-28 05:33] LABS: Potassium 3.6 mEq/L (3.5-5.1)
[2023-07-28] MEDS: LEVOTHYROXINE SOD 0.125 MG TAB PO SCH (06:03)
[2023-07-28] MEDS ORDERED: HOME MED 1 EA UNK (Lovastatin [Lovastatin] 20 MG Tablet) PO SCH (09:00)
[2023-07-28] MEDS: ASPIRIN EC 81 MG TAB PO SCH (09:54)
[2023-07-28] MEDS: AMIODARONE HCL 200 MG TAB PO SCH (09:54)
[2023-07-28] MEDS: ESCITALOPRAM 20 MG TAB PO SCH ×2 (09:54→20:18)
[2023-07-28] MEDS: CLOPIDOGREL 75 MG TABLET PO SCH (09:54)
--- NOTE | 2023-07-28 12:12 | P.PN ---
Subjective Date of Service: 07/28/23 Chief Complaint: CHF exacerbation, volume overload. Yesterday, she underwent LHC with PCI to the RCA. She reports that her symptoms are much improved today. Overnight, her heart rate has dropped into the 30s, but remains sinus. Suspect this occurred due to the resumption of her home c arvedilol. She denies any chest pain or palpitations. Review of Systems 10-point ROS is otherwise unremarkable Cardiovascular: Orthopnea, Edema Physical Examination - Vital Signs Temperature: 97.3 F Blood Pressure: 127/52 Pulse: 44 Respirations: 15 Pulse Ox (%): 97 - Physical Exam General: Alert, In no apparent distress, Oriented x3 HEENT: Atraumatic, Mucous membr. moist/pink, Sclerae nonicteric Neck: JVD not distended Respiratory: Diminished, Crackles/rales (faint bibasilar) Cardiovascular: No murmurs, Other (bradycardic rate, regular rhythm), Edema (1+ BLE) Gastrointestinal: Normal bowel sounds, Soft and benign, No tenderness Musculoskeletal: No clubbing Integumentary: No rashes Neurological: Normal speech, Normal affect Assessment And Plan - Plan # Acute on Chronic Decompensated Systolic Congestive Heart Failure with Reduced Ejection Fraction - improved # Moderate Pulmonary Hypertension # Hypertension - Consult Cardiology - recommendations appreciated - Chest x-ray = "no acute abnormalities displayed" - Transthoracic echocardiogram (June 2023) = "1. mildly depressed left ventricular ejection fraction 40-45%. 2. apical hypokineisis. 3. left atrial enlargement. 4. mild tricuspid regurgitation." - Diuresis per Cardiology - Daily weights - Strict I/O - Cardiac diet, 1.5 L fluid restriction, 2 g Na restriction # Chronic Atrial Fibrillation - Currently in sinus bradycardia - likely due to carvedilol use - Discontinue carvedilol and amiodarone - Cardiology consulted - recommendations appreciated - Continue apixaban # Suspect Demand Ischemia (Type II Non-ST Segment Elevation Myocardial Infarction) due to above # Coronary Artery Disease - Cardiology consulted - recommendations appreciated - EKG without STEMI criteria - Serial troponin = 76.3 -> 75.7 -> 70.3 - S/P LHC on 07/27: " 1. Severe proximal RCA stenosis, status post successful PCI as above. 2. Mild coronary artery disease elsewhere. 3. Normal LVEDP." - Monitor telemetry # Chronic Kidney Disease Stage IV # Anemia of Chronic Kidney Disease - Consulted Nephrology - recommendation appreciated - Creatinine near baseline - Monitor creatinine and urine output - If worsening, obtain renal ultrasound - Renally dose medications # Chronic Respiratory Failure due to Chronic Obstructive Pulmonary Disease on Home Oxygen (4 L) - No evidence of acute exacerbation - Continue home medications # Dyslipidemia - Continue atorvastatin # Hypothyroidism - Continue home levothyroxine # Depression - Continue home escitalopram # Restless Leg Syndrome - Continue home ropinirole Davide Doyle M.D.
--- NOTE | 2023-07-28 15:41 | P.PN ---
Subjective Date of Service: 07/28/23 Chief Complaint: CHF exacerbation, volume overload. Subjective: No new changes, Doing well (HR is low, in slow AF) Physical Examination - Vital Signs Temperature: 97.3 F Blood Pressure: 127/52 Pulse: 44 Respirations: 15 Pulse Ox (%): 97 - Physical Exam General: Alert, In no apparent distress, Oriented x3 HEENT: Atraumatic Neck: Supple Respiratory: Clear to auscultation bilaterally Cardiovascular: Irregular heart rate/rhythm Gastrointestinal: No tenderness Neurological: Normal speech - Studies Medications List Reviewed: Yes Assessment And Plan - Plan 1. Coronary artery disease: S/p PCI with drug-eluting stent to the RCA. Continue aspirin Plavix, patient has chronic A-fib we will start Eliquis and may be on discharge will discharge on Eliquis and Plavix. Continue statin and beta- vivian was held due to bradycardia 2. A-fib: Patient is bradycardic agree with stopping carvedilol and amiodarone, resume Eliquis. 3. Hypertension: Blood pressure at low side now, continue with holding blood pressure medicine 4. Anemia: We will monitor H&H.
[2023-07-28] MEDS: AMPICILLIN/SULBACT 3 GM in NA CHLORIDE 0.9% 100 ML IVPB SCH (20:17)
[2023-07-28] MEDS: ATORVASTATIN 40 MG TAB PO SCH (20:18)
[2023-07-28] MEDS: ENSURE HIGH PROTEIN 237 ML CAN PO SCH (20:19)
[2023-07-29] MEDS: FUROSEMIDE 20 MG/ 2ML VIAL IV SCH ×3 (04:35→21:03)
[2023-07-29 04:46] LABS: Absolute Lymphocytes (CBC) 1.5 K/uL (0.7-4.9); Hematocrit 25.1 % (36.0-45.0); Lymphocytes % 19.3 % (15.3-44.8); MCV 84.9 fL (80-100); MPV 7.7 fL (7.6-11.3); Platelets 207 thou/uL (152-406); RBC Red Blood Cell Count 2.95 M/uL (3.86-4.86)
[2023-07-29 05:11] LABS: Albumin 2.5 g/dL (3.4-5.0); Bilirubin Total 0.2 mg/dL (0.2-1.0); Magnesium 2.3 mg/dL (1.6-2.4); Phosphorus 4.2 mg/dL (2.5-4.9); Potassium 3.9 mEq/L (3.5-5.1); Protein, Total 5.6 g/dL (6.4-8.2)
[2023-07-29] MEDS: LEVOTHYROXINE SOD 0.125 MG TAB PO SCH (06:16)
[2023-07-29] MEDS: AMPICILLIN/SULBACT 3 GM in NA CHLORIDE 0.9% 100 ML IVPB SCH ×2 (08:35→21:04)
[2023-07-29] MEDS: ESCITALOPRAM 20 MG TAB PO SCH ×2 (08:36→21:03)
[2023-07-29] MEDS: CLOPIDOGREL 75 MG TABLET PO SCH (08:36)
[2023-07-29] MEDS: ENSURE HIGH PROTEIN 237 ML CAN PO SCH ×2 (08:36→21:03)
[2023-07-29] MEDS: ASPIRIN EC 81 MG TAB PO SCH (08:36)
--- NOTE | 2023-07-29 10:30 | RAD REPORT ---
EXAM DESCRIPTION: US - Renal Ultrasound-Complete - 07/29/2023 10:02 am CLINICAL HISTORY: Acute renal failure. Chronic renal failure COMPARISON: March 2023 FINDINGS: The right kidney measures 9 cm with a normal echotexture. 2.6 centimeters cyst Suboptimal evaluation of the left kidney The left kidney measures 8 cm with a normal echotexture. Mild bilateral hydronephrosis Mild bladder distention IMPRESSION: Mild bilateral hydronephrosis Mild bladder distention
--- NOTE | 2023-07-29 11:24 | P.PN ---
Subjective Date of Service: 07/29/23 Chief Complaint: CHF exacerbation, volume overload. She is doing well this morning. On rounds, her heart rates were in the 30s-40s, and she appears to be in atrial fibrillation with slow ventricular response. She denies any chest pain or palpitations. Review of Systems 10-point ROS is otherwise unremarkable Physical Examination - Vital Signs Temperature: 96.6 F Blood Pressure: 146/52 Pulse: 53 Respirations: 15 Pulse Ox (%): 100 - Physical Exam General: Alert, In no apparent distress, Oriented x3 HEENT: Atraumatic, Mucous membr. moist/pink, Sclerae nonicteric Respiratory: Clear to auscultation bilaterally, Diminished Cardiovascular: No murmurs, Edema (trace BLE), Irregular heart rate/rhythm Gastrointestinal: Normal bowel sounds, Soft and benign, Non-distended, No tenderness Musculoskeletal: No clubbing Integumentary: No rashes Neurological: Normal speech, Normal affect - Studies Microbiology Data (last 24 hrs): 07/26/23 21:06 Clean Catch Urine [place] Count - Final <10,000 CFU/ML. 07/26/23 21:06 Clean Catch Urine - Final MIXED ALOK. Medications List Reviewed: Yes Assessment And Plan - Plan # Acute on Chronic Decompensated Systolic Congestive Heart Failure with Reduced Ejection Fraction - improved # Moderate Pulmonary Hypertension # Hypertension - Consult Cardiology - recommendations appreciated - Chest x-ray = "no acute abnormalities displayed" - Transthoracic echocardiogram (June 2023) = "1. mildly depressed left ventricular ejection fraction 40-45%. 2. apical hypokineisis. 3. left atrial enlargement. 4. mild tricuspid regurgitation." - Diuresis per Cardiology - Daily weights - Strict I/O - Cardiac diet, 1.5 L fluid restriction, 2 g Na restriction # Chronic Atrial Fibrillation - Currently in atrial fibrillation with slow ventricular response - Discontinued carvedilol and amiodarone - Cardiology consulted - recommendations appreciated - Continue apixaban # Suspect [place]and Ischemia (Type II Non-ST Segment Elevation Myocardial Infarction) due to above # Coronary Artery Disease - Cardiology consulted - recommendations appreciated - EKG without STEMI criteria - Serial troponin = 76.3 -> 75.7 -> 70.3 - S/P C on 07/27: " 1. Severe proximal RCA stenosis, status post successful PCI as above. 2. Mild coronary artery disease elsewhere. 3. Normal LVEDP." - Monitor telemetry # KDIGO Stage I Acute Kidney Injury on Chronic Kidney Disease Stage IV # Anemia of Chronic Kidney Disease - Consulted Nephrology - recommendation appreciated - Creatinine: 1.83 -> 2.12 -> 2.43 - Renal ultrasound with concern for mild bilateral hydronephrosis - Requested Miller catheter + Urology consultation - Monitor creatinine and urine output - Renally dose medications # Chronic Respiratory Failure due to Chronic Obstructive Pulmonary Disease on Home Oxygen (4 L) - No evidence of acute exacerbation - Continue home medications # Dyslipidemia - Continue atorvastatin # Hypothyroidism - Continue home levothyroxine # Depression - Continue home escitalopram # Restless Leg Syndrome - Continue home ropinirole Davide Doyle M.D.
--- NOTE | 2023-07-29 12:49 | P.PN ---
Subjective Date of Service: 07/29/23 Chief Complaint: CHF exacerbation, volume overload. Subjective: No new changes, Doing well Physical Examination - Vital Signs Temperature: 97.1 F Blood Pressure: 128/62 Pulse: 41 Respirations: 18 Pulse Ox (%): 100 - Physical Exam General: In no apparent distress HEENT: Atraumatic Neck: JVD not distended Respiratory: Clear to auscultation bilaterally Cardiovascular: Irregular heart rate/rhythm Gastrointestinal: Soft and benign Musculoskeletal: No swelling Neurological: Normal speech - Studies Microbiology Data (last 24 hrs): 07/26/23 21:06 Clean Catch Urine [place] Count - Final <10,000 CFU/ML. 07/26/23 21:06 Clean Catch Urine - Final MIXED ALOK. Medications List Reviewed: Yes Assessment And Plan - Plan 1. Coronary artery disease: S/p PCI with drug-eluting stent to the RCA. Continue aspirin Plavix, patient has chronic A-fib we will start Eliquis and may be on discharge will discharge on Eliquis and Plavix. Continue statin and beta- vivian stopped due to bradycardia 2. A-fib: Patient is bradycardic , in and out of AF, rate is better but still slow, continue off carvedilol and amiodarone. She may benefit from Watchman as out pt. If HGb stable tomorrow can resume Eliquis . 3. Hypertension: Blood pressure at low side now yesterday, meds were held 4. Anemia: Hgb 9.9 on admission , 8.3 today, We will monitor H&H. If Stable tomorrow, will stop ASA and Start Eliquis 2.5 mg BID 5. CLIFF on CKD: s/p Miller with good urine out put, monitor Cr.
--- NOTE | 2023-07-29 20:56 | CON ---
Date of Consultation: 07/29/2023 Chief Complaint: Cardiorenal syndrome, acute on chronic kidney injury, congestive heart failure exac erbation, volume overload. Patient has underlying chronic kidney disease stage 3 advancing to stage 4, systolic congestive heart failure, chronic atrial fibrillation. History Of Present Illness: She is an 82-year-old woman with multiple medical problems including hyp ertension, hyperlipidemia, hypothyroidism, chronic atrial fibrillation, chronic kidney disease stage 4, systolic congestive heart failure. She was admitted to ICU for severe dyspnea, hypoxemic respirat ory failure. She is on O2 nasal cannula. She was complaining of orthopnea and leg swelling, and leg swelling was getting worse and patient developed severe shortness of breath 2 days prior to admissio n. She was taking Lasix as prescribed 40 mg twice a day at home, although swelling did not improve a nd she decided to come to emergency room. Lab work showed elevated proBNP. Creatinine level was 1.9 . Patient was found to have volume overload. She was started on IV Lasix and admitted for diuretic treatment. Patient developed progressively worse renal function and nephrology consulted for acute o n chronic kidney injury, cardiorenal syndrome. Patient had a renal ultrasound done which showed bila teral hydronephrosis and Miller catheter was placed. Past Medical And Social History: Patient has multiple medical problems including hypertension, dysli pidemia, hypothyroidism, restless legs syndrome, GERD, depression, chronic diastolic congestive heart failure, CKD 4, arthritis, eczema, bilateral knee replacement 2006 and 2007, left shoulder replaceme nt 2011, breast reduction, gastric banding, removal of adhesion and scar tissue, benign tumor removal . Family History: Mother had a breast cancer. Father, cancer of unknown origin. Social History: Denies tobacco, alcohol, illicit drugs. Review of Systems: Eyes: Denies new vision changes. Ears, Nose, Mouth, and Throat: Denies sore throat or earache. Respiratory: Denies wheezing, although she has chronic shortness of breath, she developed progressiv chevy worse shortness of breath prior on this admission. Cardiovascular: She had orthopnea, dyspnea at rest and on exertion, paroxysmal nocturnal dyspnea. Gastrointestinal: Denies nausea, vomiting, melena, hematemesis. Musculoskeletal: She has leg edema. Skin: Denies skin rash. Physical Examination: General: Patient is awake, alert, follows commands. Eyes: Anicteric sclerae. EOMI. Ears, Nose, Mouth, and Throat: Oral mucosa moist. No pallor. Neck: Supple. No bruits. Lungs: Diminished breast sounds at bases. Heart: S1, S2. Abdomen: Soft, benign. Extremities: Slight edema both ankles; bilateral pretibial edema. Neurological: Moving extremities. Cranial nerves intact. Psychiatric: Alert oriented x3. Normal affect. Laboratory Data: WBC 9.0, hemoglobin 9.9, hematocrit 30, platelet count 228. Sodium 149, potassium 3.3, BUN 18, creatinine 1.83, glucose 116, magnesium 2.3. Today, lab work showed sodium 140, potassi um 3.9, chloride 106, CO2 29, BUN 26, creatinine 2.43, GFR 20, glucose 124, lactic acid 0.9, calcium 7.5, phosphorus 4.2, albumin 2.5, total protein at 5.6. Urinalysis showed leukocyte esterase 250, rb c less than 5, wbc 10 to 20. Urine pH 6.5, specific gravity 1.012, glucose negative, ketones negativ e, blood negative, nitrites negative, bilirubin negative, urine protein 1+. Impression And Plan: 1.Acute on chronic kidney injury. Patient was found to have bilateral hydronephrosis. Miller cathet er was placed. Monitor urine output. Continue Lasix for cardiorenal syndrome and decompensated maxime estive heart failure with hypervolemia and anasarca. Patient was found to have hypoalbuminemia. Amado n is to rule out monoclonal gammopathy of unknown significance. Urinalysis did not show hematuria. Patient was found to have leukocyturia and urine culture is pending. 2.Hypertension. Monitor blood pressure. Advance beta-vivian for blood pressure control and conges tive heart failure treatment. Patient was started on broad-spectrum antibiotic. Adjust treatment to renal function. 3.Pending workup for urinary tract infection, patient was found to have bladder distention and hydro nephrosis. Patient has difficulty voiding. Currently, she has a Miller catheter. Consult urologist for bilateral hydronephrosis. EB/MODL Voice ID: [id number] Report ID: [id number]
[2023-07-29] MEDS: ATORVASTATIN 40 MG TAB PO SCH (21:03)
[2023-07-30 05:22] LABS: Absolute Lymphocytes (CBC) 1.8 K/uL (0.7-4.9); Hematocrit 26.4 % (36.0-45.0); Lymphocytes % 23.9 % (15.3-44.8); MPV 7.7 fL (7.6-11.3); Platelets 197 thou/uL (152-406)
[2023-07-30 05:43] LABS: Potassium 3.8 mEq/L (3.5-5.1)
[2023-07-30] MEDS: LEVOTHYROXINE SOD 0.125 MG TAB PO SCH (06:30)
[2023-07-30] MEDS: ENSURE HIGH PROTEIN 237 ML CAN PO SCH ×2 (09:37→21:00)
[2023-07-30] MEDS: AMPICILLIN/SULBACT 3 GM in NA CHLORIDE 0.9% 100 ML IVPB SCH ×2 (09:37→21:29)
[2023-07-30] MEDS: ASPIRIN EC 81 MG TAB PO SCH (09:38)
[2023-07-30] MEDS: ESCITALOPRAM 20 MG TAB PO SCH ×2 (09:38→21:29)
[2023-07-30] MEDS: CLOPIDOGREL 75 MG TABLET PO SCH (09:38)
--- NOTE | 2023-07-30 09:56 | ECHO ---
HEIGHT: 4 ft 11 in WEIGHT: 165 lb 0 oz DATE OF STUDY: 07/27/[address]: Andre Arriaga 2-DIMENSIONAL: YES M.MODE: YES DOPPLER: YES COLOR FLOW: YES TDS: NO PORTABLE: YES DEFINITY: NO BUBBLE STUDY: NO DIAGNOSIS: ELEVATED TROPONIN CARDIAC HISTORY: CATHERIZATION: SURGERY: PROSTHETIC VALVE: PACEMAKER: MEASUREMENTS (cm) DIASTOLIC (NORMALS) SYSTOLIC (NORMALS) IVSd 1.2 (0.6-1.2) LA Diam 4.7 (1.9-4.0) LVEF 73% LVIDd 4.3 (3.5-5.7) LVIDs 2.5 (2.0-3.5) %FS 42% LVPWd 1.2 (0.6-1.2) Ao Diam (2.0-3.7) 2 DIMENSIONAL ASSESSMENT: RIGHT ATRIUM: NORMAL LEFT ATRIUM: ENLARGED RIGHT VENTRICLE: NORMAL LEFT VENTRICLE: LEFT VENTRICULAR HYPERTROPHY TRICUSPID VALVE: MILD TRICUSPID REGURGITATION MITRAL VALVE: MILD MITRAL REGURGITATION PULMONIC VALVE: NORMAL AORTIC VALVE: MODERATE AORTIC REGURGITATION PERICARDIAL EFFUSION: NONE AORTIC ROOT: NORMAL LEFT VENTRICULAR WALL MOTION: NORMAL DOPPLER/COLOR FLOW: SEE BELOW COMMENTS: 1. NORMAL LEFT VENTRICULAR EJECTION FRACTION 60-65% WITH NORMAL WALL MOTION. 2. LEFT ATRIAL ENLARGEMENT. 3. MODERATE CONCENTRIC LEFT VENTRICULAR HYPERTROPHY. 4. DIASTOLIC DYSFUNCTION. 5. MILD MITRAL AND TRICUSPID REGURGITATION. 6. MODERATE AORTIC REGURGITATION. TECHNOLOGIST: Robson SNEED
[2023-07-30] MEDS: FUROSEMIDE 20 MG/ 2ML VIAL IV SCH ×3 (15:12→21:31)
--- NOTE | 2023-07-30 20:17 | PN ---
Date of Progress Note: 07/30/2023 Chief Complaint: Acute on chronic kidney injury, cardiorenal syndrome. Subjective: The patient has underlying chronic kidney disease stage 3 advancing to stage 4, history of systolic congestive heart failure and chronic atrial fibrillation. Patient presented to the [facility] because of shortness of breath, generalized weakness, and anasarca. Patient is on IV Lasix. She remains in ICU. She was found to have leg swelling. She was complaining of orthopnea and PND and s he is feeling better, although renal function has declined and it is plateauing over last 24 hours. She has nonoliguric urine output. She was found to have an overdistended bladder and bilateral hydro nephrosis and her Miller catheter was placed. Patient denies history of kidney stones. Review of Systems: Denies fever, chills. Physical Examination: Lungs: Clear to auscultation bilaterally. Heart: S1, S2. Abdomen: Soft. Extremities: Slight edema and bilateral pretibial edema has improved. Impression And Plan: 1.Acute on chronic kidney injury. Patient was found to have bilateral hydronephrosis. Miller cathet er was placed. Continue to monitor urine output. Patient is on Lasix for cardiorenal syndrome and d ecompensated congestive heart failure with hypervolemia and anasarca. Patient was found to have hypo albuminemia and plan is to rule out monoclonal gammopathy of unknown significance. Urinalysis did no t show hematuria. Patient was found to have leukocyturia and urine culture is pending. 2.Hypertension. Monitor blood pressure. Advance beta-vivian for blood pressure control. 3.Pending workup for urinary tract infection and urology was consulted for bilateral hydronephrosis. Currently, patient has a Miller catheter. EB/MODL Voice ID: [id number] Report ID: [id number]
--- NOTE | 2023-07-30 21:15 | P.CNS ---
Date of Consult: 07/31/23 82-year-old woman with hypertension, hyperlipidemia, hypothyroidism, chronic A- fib, CKD stage IV, and systolic CHF who was admitted to the ICU with severe dyspnea and hypoxemic respiratory failure. Despite Lasix 40 mg twice daily prescribed for home use, the leg swelling which she complained about on admission did not improve and resulted in her emergency department evaluation. There, patient was found to be in volume overload with an elevated proBNP, and she was started on IV Lasix. As her renal function progressively worsened, nephrology was consulted and renal ultrasound was performed 07/29/2023. At that point, a Miller catheter was placed. The catheter was apparently subsequently removed, and when she went for CT scan as I requested and ordered for her below, it revealed the presence of a significantly distended bladder without a urethral Miller catheter in place. That CT scan was completed this morning, and thereafter, the urethral Miller catheter was replaced. She now explains the catheter is causing her a degree of discomfort, with the urgency to void and some rawness in the vaginal area. She acknowledges having had multiple falls, which she contributed to musculoskeletal issues involving her feet and lower extremities. She acknowledged some tingling in her feet and occasional lightheadedness. For the last 6 months at least, she has had severe difficulties voiding with a chronic weak stream, having to strain to void, the sense of urgency to void, urinary frequency, and incontinence. She was even admitted at one of the [facility] earlier this month or the end of June, and she noted her lower abdomen was distended like she was . She said that they never figured out why that was the case. Past medical history: In addition to the above, GERD, arthritis, eczema, depression Past surgical history: Bilateral knee replacements, breast reduction, gastric band, lysis of adhesions Family history: No urologic malignancy Social history: Denies history of smoking or drug use Examination: Alert, awake, oriented x3 in no acute distress No dyspnea or sign of respiratory distress No cervical/supraclavicular adenopathy or thyromegaly Abdomen soft, nontender, nondistended Urethral Miller catheter in place draining clear yellow urine Laboratory assessments: 07/26/2023 WBC 9, hemoglobin 9.9, platelets 228, creatinine 1.83 with EGFR 28, INR 1.1, UA micro 1+ leukocyte Estrace, 10-20 WBCs per hpf, less than 5 RBCs per hpf, no squamous epithelial cells. Urine culture less than 10K mixed miriam 07/28/2023 creatinine 2.12 07/29/2023 creatinine 2.43 at which point Miller catheter was placed 07/30/2023 creatinine 2.25 with EGFR 22 07/29/2023 renal ultrasound: Impression: Mild bilateral hydronephrosis. Mild bladder distention. Findings: Right kidney with 2.[address] - Abdomen Pelvis Wo Contrast - 07/31/2023 2:35 am FINDINGS: Lung bases: The lung bases are grossly clear. The heart is top normal in size. There are mild to moderate coronary artery calcifications. There is mild elevation of the right hemidiaphragm. Liver: The liver is normal in size and configuration. No focal hepatic abnormalities are appreciated on this unenhanced scan. Liver attenuation is within normal limits. Spleen: The spleen is normal in size, configuration and attenuation. No focal splenic abnormalities are appreciated on this unenhanced scan. Gallbladder and bile duct: The gallbladder is not well visualized and may be surgically absent. There is mild prominence of the common bile duct likely related to prior cholecystectomy. Findings are similar when compared to the prior study. Pancreas: The pancreas is grossly normal in size and configuration. Adrenal Glands: The adrenal glands are normal in size and configuration. Kidneys: The kidneys are normal in size and configuration. There is moderate bilateral hydroureteronephrosis. There is increased attenuation of the renal collecting systems bilaterally measuring approximately 38-48 Hounsfield units. Findings may be related to an infectious or inflammatory etiology. There are a couple of punctate nonobstructing bilateral renal calculi. There are a few stable benign-appearing bilateral renal cysts. No follow-up imaging is recommended. There is marked distention of the urinary bladder which extends to the level of the umbilicus which may be partly responsible for the hydroureteronephrosis. Stomach: The stomach is grossly normal. There is no definite hiatal hernia. Bowel: The bowel gas pattern is non specific and non obstructive. There is scattered colonic diverticulosis without evidence of paco diverticulitis. Appendix: The appendix is not clearly identified on this examination. Free air: There is no evidence of free air. Free fluid: There is no evidence of free fluid. Vasculature: The aorta is normal in caliber and contour. There are moderate atherosclerotic calcifications along the abdominal aorta and common iliac arteries. The inferior vena cava is grossly unremarkable. No pathologic lymphadenopathy is identified. Bladder: The bladder is markedly distended and smooth in contour. The bladder extends to the level of the umbilicus. The bladder extends to the measures approximately 27 Hounsfield units suggesting either an infectious or inflammatory process or the presence of blood products. Reproductive: The uterus is atrophic or surgically absent. Bones: No acute osseous abnormalities are identified. There are chronic degenerative changes of the thoracolumbar spine. There is stable grade 1 anterolisthesis of L4 relative to L5. There is marked loss of the disc space at L1-L2. There are scattered vacuum disc changes throughout the thoracolumbar spine. Soft tissues: There are inflammatory changes within the right inguinal region which may be related to recent intervention. No focal soft tissue mass lesions or discrete fluid collection is identified. There is also soft tissue thickening within the soft tissues posterior lateral to the right hip which may be due to contusion. There is a tiny fat-containing ventral umbilical hernia. IMPRESSION: 1. Moderate bilateral hydroureteronephrosis. There is increased attenuation of the renal collecting systems bilaterally measuring approximately 38-48 Hounsfield units. Findings may be related to an infectious or inflammatory etiology. There are a couple of punctate nonobstructing bilateral renal calculi. There is marked distention of the urinary bladder which extends to the level of the umbilicus which may be partly responsible for the hydroureteronephrosis. Bladder outlet obstruction is not excluded. 2. Increased density of the urinary bladder suggesting either an infectious or inflammatory process or the presence of blood products. Correlate with urinalysis. 3. Colonic diverticulosis without evidence of paco diverticulitis. 4. Inflammatory changes within the right inguinal region which may be related to recent intervention. No focal soft tissue mass lesions or discrete fluid collection is identified. There is also soft tissue thickening within the soft tissues posterior lateral to the right hip which may be due to contusion. 5. Suspect prior cholecystectomy with mild prominence of the common bile duct. Findings are similar when compared to the prior study. 6. Chronic degenerative changes of the thoracolumbar spine with stable grade 1 anterolisthesis of L4 relative to L5. -I reviewed the images of the CT scan in detail. I noted mild right caliectasis with tortuosity of the ureter, but no obstructing ureteral calculus seen. There did appear to be atrophy of the left renal unit with questionable mild hydronephrosis. The bladder was indeed massively distended, and no urethral Miller catheter was present within the bladder. Assessment and recommendation: 82-year-old woman with hypertension, hyperlipidemia, hypothyroidism, chronic A- fib, CKD stage IV, and systolic CHF admitted to the ICU with hypoxemic respiratory failure for diuresis, found to have bilateral hydronephrosis secondary to severe obstructive and irritative LUTS including urge and overflow incontinence associated with large volume urinary retention and painful bladder spasms. -As above, I recommended and ordered a noncontrast CT abdomen and pelvis to assess for ongoing hydronephrosis potentially secondary to ureteral calculus or other source of obstruction, and without a Miller catheter in place, she still had significant retention and bilateral hydronephrosis without sign of ureteral obstruction. -I counseled the patient that given her longstanding obstructive LUTS of uncertain etiology and the degree of retention causing hydronephrosis, she would require at least 10 to 14 days of chronic catheterization to allow the bladder to heal and recover. I explained the alternative was to intermittently catheterize every 6 hours, but she quickly acknowledged she would be unable to do that. -Meanwhile, to manage her spasms associated with the bladder decompression and chronic catheter, she may benefit from oxybutynin extended release 5 to 10 mg daily, which she may take up until 24 hours prior to a scheduled voiding trial. -The voiding trial should be scheduled in my office with the nursing staff there. -After the voiding trial, whether successful or unsuccessful, the patient should follow-up with me where I will perform a vaginal exam to assess for a cystocele or other anatomic sign of obstruction and cystoscopy. -If no sign of anatomic obstruction, urodynamics evaluation may be required. -Meanwhile, after 3 to 5 days of uninterrupted urethral catheterization and bladder decompression (on 08/04 or 08/05/2023), it would be helpful to repeat a renal ultrasound to assess for resolution of the hydronephrosis. If persistent hydronephrosis seen at that time, further surgical intervention may be considered.
[2023-07-30] MEDS: ATORVASTATIN 40 MG TAB PO SCH (21:29)
[2023-07-31] MEDS: FUROSEMIDE 20 MG/ 2ML VIAL IV SCH (04:39)
[2023-07-31] MEDS: LEVOTHYROXINE SOD 0.125 MG TAB PO SCH (04:39)
[2023-07-31] MEDS: ACETAMINOPHEN 325 MG TABLET PO PRN (06:35)
[2023-07-31] MEDS: ESCITALOPRAM 20 MG TAB PO SCH ×2 (10:15→20:30)
[2023-07-31] MEDS: AMPICILLIN/SULBACT 3 GM in NA CHLORIDE 0.9% 100 ML IVPB SCH ×2 (10:15→20:29)
[2023-07-31] MEDS: CLOPIDOGREL 75 MG TABLET PO SCH (10:15)
[2023-07-31] MEDS: ASPIRIN EC 81 MG TAB PO SCH (10:15)
[2023-07-31] MEDS: ENSURE HIGH PROTEIN 237 ML CAN PO SCH ×2 (10:16→21:00)
--- NOTE | 2023-07-31 13:25 | PN ---
Date of Progress Note: 07/30/2023 The patient remains in ICU. She states she feels quite a bit better. However, she has not been mobi lized minimally at best. She continues to have a Miller. We will discontinue the Miller. Seen by [facility] hrology. Suggested a Urology consult. We will await for this. If the bed is available, we can move her to floor care. Interactive Marketing Strategist will also have to be involved as she has an unstable home scenar io. Cardiologically seems stable. However, the beta vivian and amiodarone has been held due to bra dycardic episodes and hypotension. We will reconsult Cardiology as far as introducing her medication for the time of discharge. HR/MODL Voice ID: [id number] Report ID: [id number]
--- NOTE | 2023-07-31 13:40 | PN ---
Date of Progress Note: 07/31/2023 Subjective: Patient was admitted to the hospital with acute kidney injury, obstructive uropathy. Patient was found to have hydronephrosis, seen by Urology. Patient had respiratory distress secondary to COPD exacerbation/CHF exacerbation. Patient planned for CT stone protocol. Physical Examination: Vital Signs: Blood pressure 158/60, pulse of 60, afebrile. Patient had good urine output of 3600, negative of 2500. Chest: Faint rales, more prominent on the left base. Heart: S1, S2. Systolic murmur. Abdomen: Soft, nontender. Extremities: Trace edema. Neurologic: Alert. No focality, no tremor. Laboratory Data: Hemoglobin 8.5. Sodium 141, potassium 3.8, bicarb 30, BUN 22, creatinine 2.2. GFR of 22. Calcium of 8. Chest x-ray: No congestion, has cardiomegaly. Urinalysis is positive for infection. CT stone protocol is still pending. Current Medications: The patient is on include: 1. Aspirin. 2. Zosyn. 3. Plavix. 4. Atorvastatin. 5. Tylenol. 6. Lasix 20 t.i.d. 7. Zofran. Assessment And Plan: 1. Acute kidney injury, multifactorial, secondary to obstructive uropathy/cardiorenal. Back to baseline I am going to go ahead and switch her Lasix to oral. Patient has normal volume and we will follow up. 2. Hypertension. Continue current medication. Switch Lasix to oral. 3. Obstructive uropathy. We will follow up with Urology. Plan for CT. 4. Chronic obstructive pulmonary disease exacerbation as by primary and Pulmonary. 5. Hypokalemia. No need for supplement currently. 6. Urinary tract infection. Continue Zosyn. We will follow up culture. time spent examining the patient [id number] reviewing that her lab and the radiology placing order discussing the case with the patient discussing the case with the merchandising team lead including hospitalists and nursing staff more than 35 minutes BURTON Voice ID: [id number] Report ID: [id number] CAITLYN
--- NOTE | 2023-07-31 14:58 | PN ---
Date of Progress Note: 07/31/2023 Subjective: The patient has been transferred to floor care. She seems a little bit stronger today a nd states she has felt a little more comfortable, moving around, although she is still weak. However , she still had marked difficulty in voiding and Miller catheter was reinserted. Awaiting results of her CT scan and Neurology consult. Cardiovascular status is stable. Awaiting Social Service evaluat ion as well. HR/MODL Voice ID: [id number] Report ID: [id number]
[2023-07-31] MEDS: FUROSEMIDE 40 MG TABLET PO SCH (16:31)
--- NOTE | 2023-07-31 16:33 | RAD REPORT ---
EXAM DESCRIPTION: CT - Abdomen Pelvis Wo Contrast - 07/31/2023 2:35 am CLINICAL HISTORY: 82 years Female bilateral hydronephrosis and CLIFF on CKD TECHNIQUE: Axial CT imaging of the abdomen and pelvis was performed without oral or intravenous cont rast. Sagittal and coronal reconstructed images were then performed. The CT study is performed acco rding to ALARA (as low as reasonably achievable) or ALARA/IMAGE GENTLY, with automatic adjustment of mA and/or kV according to patient size. Performed on: 07/31/2023 at 12:54 AM COMPARISON: Retroperitoneal ultrasound report from 07/29/2023. The images were not available for rev iew. CT abdomen and pelvis without contrast performed on 10/03/2022. FINDINGS: Lung bases: The lung bases are grossly clear. The heart is top normal in size. There are m ild to moderate coronary artery calcifications. There is mild elevation of the right hemidiaphragm. Liver: The liver is normal in size and configuration. No focal hepatic abnormalities are appreciated on this unenhanced scan. Liver attenuation is within normal limits. Spleen: The spleen is normal in size, configuration and attenuation. No focal splenic abnormalities a re appreciated on this unenhanced scan. Gallbladder and bile duct: The gallbladder is not well visualized and may be surgically absent. The re is mild prominence of the common bile duct likely related to prior cholecystectomy. Findings are s imilar when compared to the prior study. Pancreas: The pancreas is grossly normal in size and configuration. Adrenal Glands: The adrenal glands are normal in size and configuration. Kidneys: The kidneys are normal in size and configuration. There is moderate bilateral hydroureterone phrosis. There is increased attenuation of the renal collecting systems bilaterally measuring approxi mately 38-48 Hounsfield units. Findings may be related to an infectious or inflammatory etiology. The re are a couple of punctate nonobstructing bilateral renal calculi. There are a few stable benign-juliana earing bilateral renal cysts. No follow-up imaging is recommended. There is marked distention of th e urinary bladder which extends to the level of the umbilicus which may be partly responsible for the hydroureteronephrosis. Stomach: The stomach is grossly normal. There is no definite hiatal hernia. Bowel: The bowel gas pattern is non specific and non obstructive. There is scattered colonic divertic ulosis without evidence of paco diverticulitis. Appendix: The appendix is not clearly identified on this examination. Free air: There is no evidence of free air. Free fluid: There is no evidence of free fluid. Vasculature: The aorta is normal in caliber and contour. There are moderate atherosclerotic calcifica tions along the abdominal aorta and common iliac arteries. The inferior vena cava is grossly unremark able. Lymphadenopathy: No pathologic lymphadenopathy is identified. Bladder: The bladder is markedly distended and smooth in contour. The bladder extends to the level of the umbilicus. The bladder extends to the measures approximately 27 Hounsfield units suggesting eith er an infectious or inflammatory process or the presence of blood products. Reproductive: The uterus is atrophic or surgically absent. Bones: No acute osseous abnormalities are identified. There are chronic degenerative changes of the t horacolumbar spine. There is stable grade 1 anterolisthesis of L4 relative to L5. There is marked los s of the disc space at L1-L2. There are scattered vacuum disc changes throughout the thoracolumbar sp ine. Soft tissues: There are inflammatory changes within the right inguinal region which may be related to recent intervention. No focal soft tissue mass lesions or discrete fluid collection is identified. T here is also soft tissue thickening within the soft tissues posterior lateral to the right hip which may be due to contusion. There is a tiny fat-containing ventral umbilical hernia. IMPRESSION: 1. Moderate bilateral hydroureteronephrosis. There is increased attenuation of the timothy al collecting systems bilaterally measuring approximately 38-48 Hounsfield units. Findings may be rel ated to an infectious or inflammatory etiology. There are a couple of punctate nonobstructing bilater al renal calculi. There is marked distention of the urinary bladder which extends to the level of the umbilicus which may be partly responsible for the hydroureteronephrosis. Bladder outlet obstruction is not excluded. 2. Increased density of the urinary bladder suggesting either an infectious or inflammatory process or the presence of blood products. Correlate with urinalysis. 3. Colonic diverticulosis without evidence of paco diverticulitis. 4. Inflammatory changes within the right inguinal region which may be related to recent interventio n. No focal soft tissue mass lesions or discrete fluid collection is identified. There is also soft t issue thickening within the soft tissues posterior lateral to the right hip which may be due to contu ever. 5. Suspect prior cholecystectomy with mild prominence of the common bile duct. Findings are similar when compared to the prior study. 6. Chronic degenerative changes of the thoracolumbar spine with stable grade 1 anterolisthesis of L 4 relative to L5. Electronically signed by: Mary Munoz DO 07/31/2023 1:58 AM CDT Due to temporary technical issues with the PACS/Fluency reporting system, reports are being signed by the in house radiologists without review as a courtesy to insure prompt reporting. The interpreting radiologist is fully responsible for the content of the report.
--- NOTE | 2023-07-31 19:19 | PN ---
Date of Progress Note: 07/31/2023 Subjective: Seen by bedside. Doing well. No further chest pain. Review of Systems: No chest pain, shortness of breath, orthopnea, or cough. No nausea, vomiting, or diarrhea. All othe r systems were reviewed, they were negative. Objective: Vital Signs: Reviewed. Head and Neck: Pupils are equal, reactive to light. Intact eye movements. No JVD. No cervical lym phadenopathy. Neck is supple. Thyroid is not enlarged. Lungs: Clear to auscultation bilaterally. No rhonchi, wheezing, or crackles. No accessory muscle u se. Heart: Regular rate and rhythm. No extra sounds. Abdomen: Soft, nontender. Bowel sounds positive. No organomegaly. No masses or hernia. No rigidi ty or rebound. Extremities: No edema clubbing, or cyanosis. Intact pulses. Skin: No rash or nodule. Neurologic: Alert, awake, oriented x3. No acute focal deficits appreciated. Investigations: Labs were reviewed. Assessment And Recommendations: 1.[id number] myocardial infarction, culprit was RCA, status post successful PCI, doing well. Continue aspirin and Plavix. 2.Dyslipidemia. Continue statin. 3.Hypertension. Blood pressure is controlled. Cardiology will sign off and she was instructed to follow up with her gear hobber postdischarge. /DAPHNEY Voice ID: [id number] Report ID: [id number]
[2023-07-31] MEDS: ATORVASTATIN 40 MG TAB PO SCH (20:30)
[2023-08-01] MEDS: LEVOTHYROXINE SOD 0.125 MG TAB PO SCH (07:51)
[2023-08-01] MEDS: ASPIRIN EC 81 MG TAB PO SCH (09:12)
[2023-08-01] MEDS: ENSURE HIGH PROTEIN 237 ML CAN PO SCH ×2 (09:12→21:00)
[2023-08-01] MEDS: ESCITALOPRAM 20 MG TAB PO SCH ×2 (09:12→21:12)
[2023-08-01] MEDS: FUROSEMIDE 40 MG TABLET PO SCH ×2 (09:12→18:30)
[2023-08-01] MEDS: CLOPIDOGREL 75 MG TABLET PO SCH (09:12)
--- NOTE | 2023-08-01 12:26 | PN ---
Date of Progress Note: 08/01/2023 Subjective: The patient was admitted to the hospital with anasarca, acute kidney injury secondary to cardiorenal, respiratory failure secondary to COPD and pulmonary/cardiorenal syndrome. The patient's acute kidney injury was multifactorial. The patient was seen by Urology. Miller was inserted. Kidney function stabilized. Yesterday, we switched the patient to oral diuresis. Physical Examination: Vital Signs: Blood pressure 177/67, pulse of 66, afebrile. Chest: Clear to auscultation. Heart: S1, S2. Systolic murmur. Abdomen: Soft, nontender. Extremities: Trace edema. Neurologic: Alert. No focality. Laboratory Data: WBC 7.5, hemoglobin 8.5. Sodium 141, potassium 3.8, bicarb 30, BUN 22, creatinine 2.2, GFR 22, calcium of 8. Current Medications: The patient on its include, 1. Aspirin. 2. Plavix 75. 3. Atorvastatin. 4. Tylenol. 5. Lasix 40 p.o. b.i.d. 6. Levothyroxine. Assessment And Plan: 1. Acute kidney injury, multifactorial secondary to cardiorenal/obstructive uropathy. The patient seen by Urology and CT confirmed showing hydronephrosis bilateral. Recommendation from Urology is to keep Miller for another 2 weeks and placed on oxybutynin. We will follow up. 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 2. Hypertension, controlled optimal. Continue current treatment. We will consider decreasing the Lasix upon discharge to 40 mg daily. 3. Anasarca secondary to cardiorenal, back to baseline. As I mentioned, upon discharge to decrease Lasix to 40 mg daily. 4. Hypothyroidism. Continue levothyroxine. 5. Chronic obstructive pulmonary disease with exacerbation, currently stabilized as by primary. 6. Obstructive uropathy as above. time spent examining the patient [id number] reviewing that her lab and the radiology placing order discussing the case with the patient discussing the case with the steam clean machine operator including hospitalists and nursing staff more than 35 minutes BURTON Voice ID: [id number] Report ID: [id number] CAITLYN
--- NOTE | 2023-08-01 18:09 | EKG ---
Test Date: 2023-07-29 Test Time: 10:14:17 Garment Inspector: CRISTIN MEASUREMENT RESULTS: Intervals: Rate: 50 [place]: QRSD: 112 QT: 574 QTc: 523 [place]: P: [place]: QRS: -31 T: 209 INTERPRETIVE STATEMENTS: Atrial fibrillation with slow ventricular response Left axis deviation Incomplete left bundle branch block Voltage criteria for left ventricular hypertrophy ST & T wave abnormality, consider inferior ischemia or digitalis effect ST & T wave abnormality, consider anterolateral ischemia or digitalis effect Prolonged QT Abnormal ECG Compared to ECG 07/26/2023 18:48:01 Left bundle-branch block now present ST (T wave) deviation now present Possible ischemia now present Prolonged QT interval now present Electronically Signed On 08-01-23 18:04:53 CDT by Andre Arriaga
[2023-08-01] MEDS: carvediloL 3.125 MG TAB PO SCH (18:30)
[2023-08-01] MEDS: ATORVASTATIN 40 MG TAB PO SCH (21:12)
[2023-08-02] MEDS: ACETAMINOPHEN 325 MG TABLET PO PRN (01:26)
[2023-08-02] MEDS: carvediloL 3.125 MG TAB PO SCH (05:26)
[2023-08-02] MEDS: LEVOTHYROXINE SOD 0.125 MG TAB PO SCH (05:28)
[2023-08-02] MEDS: FUROSEMIDE 40 MG TABLET PO SCH ×2 (09:00→16:53)
[2023-08-02] MEDS: ENSURE HIGH PROTEIN 237 ML CAN PO SCH ×2 (09:00→21:00)
[2023-08-02] MEDS: CLOPIDOGREL 75 MG TABLET PO SCH (10:03)
[2023-08-02] MEDS: ASPIRIN EC 81 MG TAB PO SCH (10:03)
[2023-08-02] MEDS: ESCITALOPRAM 20 MG TAB PO SCH ×2 (10:03→21:42)
[2023-08-02] MEDS ORDERED: FUROSEMIDE 20 MG TABLET PO ONE (10:07)
[2023-08-02] MEDS: OXYBUTYNIN ER 5 MG TAB PO SCH (12:44)
--- NOTE | 2023-08-02 14:44 | PN ---
Date of Progress Note: 08/02/2023 Subjective: The patient was admitted with respiratory failure, anasarca. The patient being diuresed , responding very well. The patient had COPD exacerbation. The patient feeling better. The patient had also urinary retention, seen by Urology. Plan for continue Miller for another 2 weeks. Physical Examination: Vital Signs: Blood pressure 132/64, pulse of 53, afebrile. Chest: Clear to auscultation. Heart: S1, S2. Regular. Abdomen: Soft, nontender. Extremities: No edema. Neurologic: Alert. No focality. Laboratory Data: Hemoglobin 8.5. Sodium 141, potassium 3.8, bicarb 30, BUN 22, creatinine 2.2, GFR 22, calcium 8. Current Medications: The patient on include: 1.Plavix. 2.Atorvastatin. 3.Tylenol. 4.Ensure. 5.Lasix 40 b.i.d. 6.Zofran. Assessment And Plan: 1.Acute kidney injury, multifactorial, secondary to cardiorenal. Continue to recover, close to base line. I am going to go ahead and repeat chest x-ray for further evaluation. 2.Acute kidney injury secondary to component of obstructive uropathy. Miller placed. Follow up with Urology. Plan to keep the Miller for another 2 weeks. We will continue to monitor the patient. Fol low up with Dr. Augustine. 3.Congestive heart failure with exacerbation, currently stable. I am going to repeat chest x-ray fo r better evaluation of the fluid status and we will monitor the patient. 4.Respiratory failure secondary to combined cardiorenal/chronic obstructive pulmonary disease exacer bation as above. Continue current treatment. 5.Obstructive uropathy. Start the patient on oxybutynin as per recommendation by Urology and bennett valderrama follow up with the Miller. KATERINA/DAPHNEY Voice ID: [id number] Report ID: [id number]
[2023-08-02] MEDS: AMIODARONE HCL 200 MG TAB PO SCH ×2 (14:55→21:42)
--- NOTE | 2023-08-02 16:09 | RAD REPORT ---
EXAM DESCRIPTION: RADChest Single View08/02/2023 2:14 pm CLINICAL HISTORY: COPD COMPARISON: Chest Single View dated 07/26/2023; Chest Single View dated 06/24/2023; Chest Single View dated 06/22/2023; Chest Single View dated 06/21/2023 TECHNIQUE: Portable AP view of the chest. FINDINGS: Decreased inspiratory effort limits evaluation. Right arm PICC unchanged in position. The lungs are clear apart from streaky bibasilar atelectasis. No pneumothorax or effusion. The cardiomed iastinal contours are unremarkable. IMPRESSION: No acute cardiopulmonary process.
--- NOTE | 2023-08-02 18:46 | PN ---
Date of Progress Note: 08/01/2023 The patient states she feels somewhat stronger today. PT has worked with her and she has been more m obile, waiting placement. Medically, I will restart her beta-vivian at a lower dose as she seems ca rdiovascularly more stable at this time. She has no further chest pain or shortness of breath. We w ill continue to monitor while awaiting the placement. HR/MODL Voice ID: [id number] Report ID: [id number]
--- NOTE | 2023-08-02 19:05 | PN ---
Date of Progress Note: 08/02/2023 The patient states she feels considerably better today. She is up in the chair. She has been walkin g. She became bradycardic on the low dose of Coreg. Therefore, this has been discontinued and she w as started on her amiodarone 1 dose today and then b.i.d. if tolerated tomorrow, still awaiting place ment by her insurance company. HR/MODL Voice ID: [id number] Report ID: [id number]
[2023-08-02] MEDS: ATORVASTATIN 40 MG TAB PO SCH (21:42)
[2023-08-03 05:17] LABS: Albumin 2.7 g/dL (3.4-5.0); Phosphorus 3.5 mg/dL (2.5-4.9); Potassium 3.8 mEq/L (3.5-5.1)
[2023-08-03] MEDS: LEVOTHYROXINE SOD 0.125 MG TAB PO SCH (06:05)
[2023-08-03] MEDS: ENSURE HIGH PROTEIN 237 ML CAN PO SCH ×2 (09:00→21:47)
[2023-08-03] MEDS: ASPIRIN EC 81 MG TAB PO SCH (09:33)
[2023-08-03] MEDS: OXYBUTYNIN ER 5 MG TAB PO SCH (09:33)
[2023-08-03] MEDS: CLOPIDOGREL 75 MG TABLET PO SCH (09:33)
[2023-08-03] MEDS: ESCITALOPRAM 20 MG TAB PO SCH ×2 (09:33→21:47)
[2023-08-03] MEDS: FUROSEMIDE 40 MG TABLET PO SCH ×2 (09:33→16:30)
[2023-08-03] MEDS: AMIODARONE HCL 200 MG TAB PO SCH ×2 (09:35→21:53)
--- NOTE | 2023-08-03 14:25 | P.PN ---
Subjective Date of Service: 08/03/23 Chief Complaint: CHF exacerbation, volume overload. Subjective: No new changes Physical Examination - Vital Signs Temperature: 98.6 F Blood Pressure: 137/63 Pulse: 65 Respirations: 16 Pulse Ox (%): 94 - Physical Exam General: Other (Chronically ill appearing) HEENT: Atraumatic, Normocephalic Neck: Supple Respiratory: Other (symmetric chest expansion) Cardiovascular: No rubs, No murmurs Gastrointestinal: Soft and benign, No rebound Musculoskeletal: No clubbing Integumentary: No warmth Neurological: Normal speech, Normal tone Lymphatics: No axilla or inguinal lymphadenopathy Urinary: Other (no bladder distention) External genitalia: Deferred Rectal: Deferred - Studies Medications List Reviewed: Yes Assessment And Plan - Plan 1. Acute kidney injury, multifactorial, secondary to cardiorenal & obstructive uropathy. Improving. Encourage liberal by mouth fluid intake. 2. Obstructive uropathy. Miller removed today. Monitor for urinary retention. 3. Congestive heart failure with exacerbation. Improved. Cont lasix by mouth twice a day. 4. Respiratory failure secondary to combined cardiorenal/chronic obstructive pulmonary disease exacerbation as above. Continue current treatment.
[2023-08-03 14:45] LABS: Specific Gravity 1.016 (1.005-1.030); Urine Bacteria <20 /HPF (<20); Urine Bilirubin NEGATIVE (Negative); Urine Blood Negative (Negative); Urine Clarity Turbid (Clear); Urine Color Yellow (Yellow); Urine Crystals Unidentified Few /HPF (None Seen); Urine Glucose NEGATIVE (Negative); Urine Mucus Slight /HPF (None Seen); Urine Protein 2+ (Negative); Urine Urobilinogen Normal (Normal)
[2023-08-03] MEDS: ATORVASTATIN 40 MG TAB PO SCH (21:47)
[2023-08-04] MEDS: LEVOTHYROXINE SOD 0.125 MG TAB PO SCH (05:41)
[2023-08-04 06:02] LABS: Albumin 2.7 g/dL (3.4-5.0); Phosphorus 3.5 mg/dL (2.5-4.9); Potassium 3.9 mEq/L (3.5-5.1)
[2023-08-04] MEDS: ASPIRIN EC 81 MG TAB PO SCH (07:56)
[2023-08-04] MEDS: OXYBUTYNIN ER 5 MG TAB PO SCH (07:56)
[2023-08-04] MEDS: ESCITALOPRAM 20 MG TAB PO SCH ×2 (07:56→21:24)
[2023-08-04] MEDS: CLOPIDOGREL 75 MG TABLET PO SCH (07:56)
[2023-08-04] MEDS: AMIODARONE HCL 200 MG TAB PO SCH ×2 (07:56→21:23)
[2023-08-04] MEDS: FUROSEMIDE 40 MG TABLET PO SCH ×2 (07:58→16:38)
[2023-08-04] MEDS: ENSURE HIGH PROTEIN 237 ML CAN PO SCH ×2 (07:58→21:00)
[2023-08-04] MEDS: NITROFURAN MACRO 50 MG CAP PO SCH ×2 (12:53→21:00)
--- NOTE | 2023-08-04 13:40 | PN ---
Date of Progress Note: 08/04/2023 The patient still awaiting insurance clearance for SNF. The Miller has been removed. She is voiding freely. Some mild UTI as suggested by the last specimen. Since she has had frequent UTIs and one of them leading to sepsis I think it will be prudent to be started on long-term antibiotics in the form of Macrobid 50 mg twice a day. This will be started. The patient is moving much better with and wi thout assistance. Has a problem with significant home issues for her falls and general medication. I feel if nothing is decided over the weekend by Sunday then decision can be made for transferring he r to SNF early a week or so for rehab as opposed to her going home which is an extremely unstable sit uation. HR/MODL Voice ID: [id number] Report ID: [id number]
[2023-08-04] MEDS: ATORVASTATIN 40 MG TAB PO SCH (21:23)
--- NOTE | 2023-08-04 23:32 | PN ---
Date of Progress Note: 08/04/2023 Subjective: The patient was admitted with respiratory failure secondary to COPD exacerbation, cardio renal. The patient was diuresed because recover. The patient is currently on room air. Physical Examination: Vital Signs: Blood pressure of 161/65, pulse of 69, afebrile. Chest: Clear to auscultation. Heart: S1, S2. Regular. Systolic murmur. Abdomen: Soft, nontender. Extremities: No edema. Neurologic: Alert, oriented x3. Nonfocal. Laboratory Data: Hemoglobin 8.5. Sodium 139, potassium 3.9, bicarb 28, BUN 41, creatinine 2, calciu m 7.9, phos 3.5, albumin 2.7, corrected calcium is 9.1. Current Medications: The patient on include Macrodantin, aspirin, Plavix, Lexapro, Tylenol, Lasix 40 b.i.d., Ensure, levothyroxine. Assessment And Plan: 1.Acute kidney injury secondary to obstructive uropathy. Cardiorenal recover looked to me on the no rmal volume side. I am going to go ahead and change the Lasix to daily and we will continue to monit or the patient. 2.Hypertension, controlled, optimal. 3.Obstructive uropathy. Miller inserted. Continue oxybutynin. Follow up with Urology. Plan as out patient. 4.Chronic obstructive pulmonary disease exacerbation as by primary. 5.Hypothyroidism. Continue levothyroxine. 6.Anasarca secondary to hypothyroidism and cardiorenal recovered, resolved. BURTON Voice ID: [id number] Report ID: [id number]
[2023-08-05 00:09] VITALS: BMI 29.8
[2023-08-05 04:02] LABS: Albumin 2.7 g/dL (3.4-5.0); Phosphorus 3.7 mg/dL (2.5-4.9); Potassium 3.4 mEq/L (3.5-5.1)
[2023-08-05] MEDS: LEVOTHYROXINE SOD 0.125 MG TAB PO SCH (05:47)
[2023-08-05] MEDS: CLOPIDOGREL 75 MG TABLET PO SCH (07:56)
[2023-08-05] MEDS: ESCITALOPRAM 20 MG TAB PO SCH ×2 (07:56→20:55)
[2023-08-05] MEDS: ASPIRIN EC 81 MG TAB PO SCH (07:56)
[2023-08-05] MEDS: FUROSEMIDE 40 MG TABLET PO SCH (07:56)
[2023-08-05] MEDS: NITROFURAN MACRO 50 MG CAP PO SCH ×2 (07:57→21:07)
[2023-08-05] MEDS: ENSURE HIGH PROTEIN 237 ML CAN PO SCH ×2 (07:58→20:56)
[2023-08-05] MEDS: OXYBUTYNIN ER 5 MG TAB PO SCH (09:26)
[2023-08-05] MEDS: AMIODARONE HCL 200 MG TAB PO SCH ×2 (09:26→20:55)
--- NOTE | 2023-08-05 14:33 | PN ---
Date of Progress Note: 08/05/2023 Subjective: The patient was admitted with anasarca, respiratory failure. The patient was diuresed w ell. The patient had acute kidney injury secondary to cardiorenal/obstructive uropathy. Patient sta rted on Miller and oxybutynin. The patient feeling better. Miller was removed. Objective: Vital Signs: Blood pressure 158/75, pulse of 58. Chest: Clear to auscultation. Heart: S1, S2. Regular. Abdomen: Soft. Nontender. Extremity: No edema. Neurologic: Alert. No focality. Laboratory Data: Hemoglobin 8.5. Sodium 138, potassium 3.4, bicarb 33, BUN 39, creatinine 2.1, calc ium 8.6, phosphorus 3.7, albumin 2.7, corrected calcium is 9.8. Current Medications: The patient on, it includes: 1.Lasix 40 mg daily. 2.Oxybutynin. 3.Plavix. 4.Macrobid. 5.Lexapro. 6.Zofran. Assessment And Plan: 1.Acute kidney injury secondary to cardiorenal/obstructive uropathy. I am going to continue oxybuty prem. Lasix has been decreased yesterday to once a day. We will continue to monitor the patient. Bartolo bowser on room air. I am going to get a postvoid bladder scan today and we will follow up. 2.Hypertension, controlled. We will continue to utilize the blood pressure for more diuresis. 3.Anemia of chronic kidney disease, stable. We will recheck her iron store. 4.Anasarca secondary to cardiorenal, diuresed very well. We will follow up. 5.Obstructive uropathy, as above. KATERINA/DAPHNEY Voice ID: [id number] Report ID: [id number]
[2023-08-05] MEDS: ATORVASTATIN 40 MG TAB PO SCH (20:55)
[2023-08-06] MEDS: LEVOTHYROXINE SOD 0.125 MG TAB PO SCH (04:40)
[2023-08-06 05:54] LABS: Albumin 2.9 g/dL (3.4-5.0); Ferritin 53.3 ng/mL (8-388); Phosphorus 3.4 mg/dL (2.5-4.9); Potassium 3.8 mEq/L (3.5-5.1)
[2023-08-06] MEDS: ASPIRIN EC 81 MG TAB PO SCH (08:00)
[2023-08-06] MEDS: NITROFURAN MACRO 50 MG CAP PO SCH (08:00)
[2023-08-06] MEDS: FUROSEMIDE 40 MG TABLET PO SCH (08:00)
[2023-08-06] MEDS: CLOPIDOGREL 75 MG TABLET PO SCH (08:00)
[2023-08-06] MEDS: ESCITALOPRAM 20 MG TAB PO SCH (08:00)
[2023-08-06 08:01] VITALS: BP 168/60
[2023-08-06] MEDS: ENSURE HIGH PROTEIN 237 ML CAN PO SCH (08:01)
[2023-08-06] MEDS: OXYBUTYNIN ER 5 MG TAB PO SCH (09:23)
[2023-08-06] MEDS: AMIODARONE HCL 200 MG TAB PO SCH (09:24)
[2023-08-06 10:07] VITALS: O2SAT 93
[2023-08-06 10:45] VITALS: TEMP 98.2
--- NOTE | 2023-08-06 23:03 | PN ---
Date of Progress Note: 08/06/2023 Chief Complaint: Acute on chronic kidney injury, cardiorenal syndrome, anasarca, respiratory failure . Subjective: Patient received diuretics for volume control and to treat acute kidney injury secondary to cardiorenal syndrome. Patient is feeling better. Patient denies chest pain, palpitation. Physical Examination: Lungs: Clear to auscultation bilaterally. Heart: S1, S2. Abdomen: Soft. Extremities: Slight edema in both ankles. Impression And Plan: 1.Acute kidney injury secondary to cardiorenal syndrome and obstructive uropathy. Patient had a Fol ey catheter placed because she was found to have distended bladder and urinary retention. Patient wa s treated with Lasix for volume control and to provide management for congestive heart failure. 2.Hypertension. Blood pressure is controlled. 3.Anemia of chronic kidney disease, stable. Monitor iron status. 4.Anasarca secondary to congestive heart failure, cardiorenal syndrome. Patient will continue diure tics. 5.Obstructive uropathy. Patient had Miller catheter placed for urinary bladder distention and urinar y retention. EB/MODL Voice ID: [id number] Report ID: [id number]
== END 2023-08-06 13:32 | disposition home health service (06) | DRG 321 ==
LOC: ER 17:13 → ERHOLD 20:35 → 3RD-ICU 23:05 → OBSVTOIN 07-27 13:40 → 2ND 07-30 19:20
PROVIDERS: ADMIT Internal Medicine Nephrology; ATTEND Family Medicine
PROC: 027034Z Dilation of Coronary Artery, One Artery with Drug-eluting Intraluminal Device, Percutaneous Approach (ICD-10-PCS; principal; 2023-07-27)
PROC: 4A023N7 Measurement of Cardiac Sampling and Pressure, Left Heart, Percutaneous Approach (ICD-10-PCS; 2023-07-27)
PROC: B2111ZZ Fluoroscopy of Multiple Coronary Arteries using Low Osmolar Contrast (ICD-10-PCS; 2023-07-27)
DX: I13.0 Hypertensive heart and chronic kidney disease with heart failure and stage 1 through stage 4 chronic kidney disease, or unspecified chronic kidney disease (principal); I21.A1 Myocardial infarction type 2; I50.23 Acute on chronic systolic (congestive) heart failure; N18.4 Chronic kidney disease, stage 4 (severe); I48.20 Chronic atrial fibrillation, unspecified; F03.93 Unspecified dementia, unspecified severity, with mood disturbance; N17.9 Acute kidney failure, unspecified; J96.11 Chronic respiratory failure with hypoxia; N13.30 Unspecified hydronephrosis; J44.1 Chronic obstructive pulmonary disease with (acute) exacerbation; D63.1 Anemia in chronic kidney disease; E78.5 Hyperlipidemia, unspecified; E03.9 Hypothyroidism, unspecified; K21.9 Gastro-esophageal reflux disease without esophagitis; I07.1 Rheumatic tricuspid insufficiency; I27.20 Pulmonary hypertension, unspecified; E88.09 Other disorders of plasma-protein metabolism, not elsewhere classified; E87.6 Hypokalemia; G25.81 Restless legs syndrome; M19.90 Unspecified osteoarthritis, unspecified site; I25.10 Atherosclerotic heart disease of native coronary artery without angina pectoris; R00.1 Bradycardia, unspecified; T44.7X5A Adverse effect of beta-adrenoreceptor antagonists, initial encounter; Z88.8 Allergy status to other drugs, medicaments and biological substances; Z88.1 Allergy status to other antibiotic agents; Z90.49 Acquired absence of other specified parts of digestive tract; Z99.81 Dependence on supplemental oxygen; Z98.84 Bariatric surgery status; Z96.653 Presence of artificial knee joint, bilateral; Z91.048 Other nonmedicinal substance allergy status; Z79.890 Hormone replacement therapy; Z79.899 Other long term (current) drug therapy; Z96.612 Presence of left artificial shoulder joint
CPT/HCPCS: 36415; 70450; 71045; 74176; 76770; 76937; 80048; 80053; 80061; 80069; 81001; 82607; 82728; 83540; 83605; 83735; 83880; 84100; 84466; 84484; 85025; 85610; 87086; 87088; 87635; 93005; 93306; 93458; 96374; 97110; 97116; 97161; 97530; 99285; C1725; C1893; C9600; G0269; G0378; J0295; J0461; J1644; J1940; J2250; J3010; J7040; Q9967

== ENCOUNTER 2023-08-21 18:52 | Emergency (ER) | payer MEDICARE ==
--- OUTSIDE RECORDS SUMMARY | 2023-08-21 19:02 | XMS REPORT | Continuity of Care Document ---
:1940 Author Organization [facility] t Address [address] [facility]. [address] [place] [address] Care Team Providers Name Role Phone [place] Primary Care Physician Anurag Sanderson Attending Clinician Unavailable Deavers_C Attending Clinician Unavailable Cary Shannon Attending Clinician Rosita Guzman Attending Clinician RHIANNON_GCBZW_Anton_S Attending Clinician Unavailable Glenys Claros Attending Clinician Alisa Sanders Attending Clinician Marianela Velez Attending Clinician Ashish Lomas Attending Clinician Doctor Unassigned, [place] Attending Clinician Unavailable Allegra Laura Attending Clinician CARLY SINCLAIR Attending Clinician Unavailable Carly Sinclair DO Attending Clinician Canales_M Attending Clinician Unavailable Jeffrey Garcia Attending Clinician Olivia-Mbayo_A_AH Attending Clinician Unavailable Caitlyn Jerez Attending Clinician [phone] Vincent Soni Attending Clinician Sariah Becerra Attending Clinician Maria Luisa Rust NP Attending Clinician Timi Aguirre MD Attending Clinician TIMI AGUIRRE Attending Clinician Unavailable Physician, No Primary or Family Admitting Clinician Unavailchelly Sanders_Maria G Admitting Clinician Unavailable Rosita Guzman Admitting Clinician GC_GCBZW_Eliyala_S Admitting Clinician Unavailable Ayo Pan Admitting Clinician Ashish Lomas Admitting Clinician CARLY SINCLAIR Admitting Clinician Unavailable Sunny Admitting Clinician Unavailable Olivia-Mbayo_A_AH Admitting Clinician Unavailable Vincent Soni Admitting Clinician TIMI AGUIRRE Admitting Clinician Unavailable Payers Payer Name Policy Type Policy Number Effective Date Expiration Date Carla kristen [facility] O [id number] 2020 00:00:00 [employer] [place] [id number] 2019 CLASSIC/VALUE 00:00:00 [facility]LY [id number] (MEDICARE 00:00:00 REPLACEMENT HMO) [place] OF [place] - [id number] 2019 [place] (MEDICARE 00:00:00 REPLACEMENT/ADVANTA GE - HMO) Problems Condition Condition Condition Status Onset Resolution Last Treating Co mments Source Name Details Category Date Date Treatment Clinician Date FALL FALL Diagnosis Active 2022-102023-07-12 Mem oria Active 0 03:03:00 l 07/12/2023 00:00: Ajay gorman 00 [place] ACCIDENTAL ACCIDENTA Diagnosis Active 2022-102023-07-27 Memoria FALL, CHF L FALL, 0-12 21:55:00 l EXACERBATI CHF 00:00: Ajay gorman ON EXACERBATI 00 ON Active 07/12/2023 [place] SUBARACHMO Diagnosis Active 2022-12-11 Memoria ID SUBARACHMO 11-25 21:45:00 l HEMORRHAGE ID 23:05: Ajay gorman HEMORRHAGE 00 Active 11/25/2022 [facility] Acute Acute Diagnosis Active 2022-11-25 Mem oria renal renal - 03:23: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 00 (disorder) (disorder) Active 11/22/2022 Diagnosis 11/25/2022 [facility] SUBARACHNO SUBARACHN Diagnosis Active 2022-11-23 Memoria ID OID 2- 15:38:00 l HEMORRHAGE HEMORRHAGE 00:00: [place] Active 00 11/20/2022 [facility] FALL FROM FALL FROM Diagnosis Active 2019-102020-09-16 Memoria STANDING STANDING 2-05 21:55:00 l Active 00:00: [place] 09/04/2020 00 [facility] S/P FALL, S/P FALL, Diagnosis Active 2019-102020-09-05 Memoria FRACTURED FRACTURED 2-05 00:45:00 l RIGHT RIGHT 00:00: Raul WRIST, WRIST, 00 HEAD HE HEAD HE Active 09/04/2020 [facility] Traumatic Traumatic Problem 2022-12-04 Memoria subdural subdural 08:08:28 l hemorrhage hemorrhage He rmann with loss with loss of of consciousn consciousn ess status ess status unknown, unknown, initial initial encounter encounter 12/04/2022 [facility] Intracrani Intracran Diagnosis 2022-12-02 Memoria al injury ial injury 04:21:54 l with loss with loss Herm bernie of of consciousn consciousn ess ess (disorder) (disorder) Diagnosis 12/02/2022 [facility] Unspecifie Unspecifi Problem 2023-07-16 Memoria d fall, ed fall, 12:34:50 l initial initial [place] encounter encounter 07/16/2023 [place] Fall Fall Diagnosis 2023-07-23 Mem oria (finding) (finding) 04:20:50 l Diagnosis Raul 07/23/2023 [place] 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 04:20:50 l in in [place] cervical cervical region region (disorder) (disorder) Active Problem 07/23/2023 [facility] Chronic Chronic Problem Active 2023-07-23 Me moria kidney kidney 04:20:50 l disease disease Raul (disorder) (disorder) Active Problem 07/23/2023 [facility] Chronic Chronic Problem Active 2023-07-23 M emoria 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:20:50 l e lung e lung Raul disease disease (disorder) (disorder) Active Problem 07/23/2023 [facility] Depressive Problem Active 2023-07-23 M emoria disorder Depressive 04:20:50 l (disorder) disorder Herm bernie (disorder) Active Problem 07/23/2023 [facility] 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 Essential 04:20:50 l (disorder) tremor Ajay n (disorder) Active Problem 07/23/2023 [facility] Hypertensi Hypertens Problem Active 2023-07-23 Memoria ve lyle 04:20:50 l disorder, disorder, Herm bernie systemic systemic arterial arterial (disorder) (disorder) Active Problem 07/23/2023 [facility] Hyperlipid Hyperlipi Problem Active 2023-07-23 Memoria emia demia 04:20:50 l (disorder) (disorder) He r[place] Active Problem 07/23/2023 [facility] Hypothyroi Hypothyro Problem Active 2023-07-23 Memoria dism idism 04:20:50 l (disorder) (disorder) He rmann Active Problem 07/23/2023 [facility] Memory Memory Problem Active 2023-07-23 Mem oria impairment impairment 04:20:50 l (finding) (finding) Herm bernie Active Problem 07/23/2023 [facility] Morbid Morbid Problem Active 2023-07-23 Mem oria obesity obesity 04:20:50 l (disorder) (disorder) He rmann Active Problem 07/23/2023 [facility] Recurrent Recurrent Problem Active 2023-07-23 Memoria falls falls 04:20:50 l (finding) (finding) Herm bernie Active Problem 07/23/2023 [facility] Transient Transient Problem Active 2023-07-23 Memoria ischemic ischemic 04:20:50 l attack attack Raul (disorder) (disorder) Active Problem 07/23/2023 [facility] Tremor Tremor Problem Active 2023-07-23 Jose Francisco zhang (finding) (finding) 04:20:50 l Active [place] Problem 07/23/2023 [facility] 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 04:20:50 l disorder disorder Ajay n (disorder) (disorder) Active Problem 07/23/2023 [facility] 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 (disorder) (disorder) Active Problem 07/23/2023 [facility] Obese Obese Problem Active 2023-07-23 Memor ia class I class I 04:20:50 l (finding) (finding) Herm bernie Active Problem 07/23/2023 [facility] TRAUM TRAUM Diagnosis Active 2022-12-11 Mem oria SUBDR HEM SUBDR HEM 21:45:00 l WITH LOC WITH LOC Ajay n STATUS STATUS UNKNOWN, UNKNOWN, Active [facility] UNSPECIFIE UNSPECIFI Diagnosis Active 2023-07-27 Memoria D FALL, ED FALL, 21:55:00 l INITIAL INITIAL Raul ENCOUNTER ENCOUNTER Active [facility] HEART HEART Diagnosis Active 2023-07-27 Mem oria FAILURE, FAILURE, 21:55:00 l UNSPECIFIE UNSPECIFIE He aleksandra D D Active [facility] [id number] 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 - [facility] replacemen [facility] 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 [id number] Arthritis Problem Com mon of hand Spirit - [facility] History of Past Illness Condition Condition Condition Status Onset Resolution Last Treating Co mments Source Name Details Category Date Date Treatment Clinician Date Spinal Spinal Problem 2022-12-04 2022-12-04 Memoria stenosis, stenosis, 11-29 08:08:28 08:08:28 l cervical cervical 16:54: Ajay gorman region region 00 11/29/2022 12/04/2022 [facility] Repeated Repeated Problem 2022-12-04 2022-12-04 Memoria falls falls 11-29 08:08:28 08:08:28 l 11/29/2022 16:45: Ajay gorman 12/04/2022 00 [facility] Chronic Chronic Problem 2022-11-27 2022-11-27 Memoria kidney kidney 11-22 10:42:07 10:42:07 l disease, disease, 19:17: Ajay gorman unspecifie unspecifie 00 d d 11/22/2022 11/27/2022 [facility] Allergies, Adverse Reactions, Alerts Allergy Allergy Status Severity Reaction(s) Onset Inactive Treating Comm ents Source Name Type Date Date Clinician ADHESIVE DRUG Active Med Rash [facility] 05-30 ity of ICONES 00:00: [place] 00 [facility] MOXIFLOX DRUG Active Med Rash Univers ACIN HCL INGREDI 8-30 ity of 00:00: [place] [id number] Medical Branch Adhesive Propensi Active Rash Univer s Tape-Debby ty to 8-30 ity of icones adverse 00:00: [place] reaction 00 Medical s to Branch drug Moxiflox Propensi Active Rash Univer s acin Hcl ty to 8-30 ity of adverse 00:00: [place] reaction Medical s to Branch drug moxiflox DA Active [facility] acin HCl 2-15 West 00:00: [address] BANDAIDS DA Active [facility] ADHESIVE 2-15 [place] 00:00: [address] Avelox Avelox Active Memoria l [place] Avelox Allergy Active Rash Devoted to Medical substanc Group e Social History Social Habit Start Date Stop Date Quantity Comments Source ASSERTION Former[facility] Alcohol Comment Occasional [facility] [place] [facility] History of Common Spirit - Tobacco Use [facility] Sex Assigned At Common Sp cristian - [facility] Alcohol intake 2022-08-10 2022-08-10 0 /d University of 00:00:00 00:00:00 [place] [facility] Exposure to 2022-07-26 2022-08-05 Not sure [facility] SARS-CoV-2 00:00:00 12:21:00 [facility] (event) [place] Social History 2020-09-05 2020-09-05 [facility]a hoffmannbernie 14:31:45 14:31:45 Tobacco use and 2020-06-28 2020-06-28 Never used Universit y of exposure 00:00:00 00:00:00 [place] [facility] Smoking Status Start Date Stop Date Source Tobacco smoking status 2023-07-12 20:34:05 2023-07-12 20:34:05 Keesha Carter Never smoked tobacco [facility] Medications Ordered Filled Start Stop Current Ordering Indication Dosage Frequency Signature Comments Components Source Medication Medication Date Date Medication? Clinician (SIG) Name Name Coreg 3.125 2022-10 Yes 3.125 mg = Memoria mg oral 0-20 1 tab, PO, l tablet 17:29: BID, # 60 Ajay n 00 tab, 0 Refill(s), [facility]acy: [id number], 152.4, cm, 07/16/23 5:09:00 CDT, Height, 76.7, kg, 07/16/23 5:09:00 CDT, Weight Lasix 40 mg 2022-10 Yes 40 mg = 1 M emoria oral tablet 0-20 tab, PO, l 17:29: Daily, # [place] 00 30 tab, 0 Refill(s), Pharmacy: [facility] #[id number], 152.4, cm, 07/16/23 5:09:00 CDT, Height, 76.7, kg, 07/16/23 5:09:00 CDT, Weight escitalopra 2022-10 Yes 20 mg = 1 M emoria m 20 mg 0-16 tab, PO, l oral tablet 16:21: Q12H Ajay n 00 gabapentin 2022-10 Yes 100 mg = 1 M emoria 100 mg oral 0-16 cap, PO, l capsule 16:21: Bedtime [place] 00 rOPINIRole 2022-10 Yes 4 mg = 1 Mem oria 4 mg oral 0-16 tab, PO, l tablet 16:21: Q12H Raul 00 buPROPion 2022-10 Yes 150 mg = 1 Me moria 150 mg/24 0-16 tab, PO, l hours (XL) 16:21: Q12H Raul oral 00 tablet, extended release levothyroxi 2022-10 Yes 112 Memori a ne 112 mcg 0-16 microgram l (0.112 mg) 16:19: = 1 tab, Her ivory oral tablet 00 PO, Daily lovastatin 2022-10 Yes 20 mg = 1 Me moria 20 mg oral 0-16 tab, PO, l tablet 16:19: Bedtime [place] 00 vancomycin 2022-10 No 2001 mg: Me moria + Sodium 0-15 infuse l Chloride 19:00: over 2.5 Jessie nn 0.9% IV 250 00 hours For mL adult patients only: Round to nearest 250 mg per Medical Staff approval MEDICATION WASTE Product Size: 1000 mg Product Wasted: ___ mg dextrometho 2022-10 Yes Notes: Jose Francisco zhang rphan-guaiF 0-15 (dextromet l ENesin 10 18:24: horphan-gu He rmann mg-100 mg/5 00 aifenesin mL oral 10-100mg/5 liquid ml 10 ml oral SOLN ud) (Same as: Delvissin DM) vancomycin 2022-10 No 2000 mg: Me moria + Sodium 0-14 infuse l Chloride 18:45: over 2.5 Jessie nn 0.9% IV 500 00 hours For mL adult patients only: Round to nearest 250 mg per Medical Staff approval MEDICATION WASTE Product Size: 1000 mg Product Wasted: ___ mg Vancomycin 2022-10 Yes Notes: Memor ia Pharmacy 0-14 Vancomycin l Dosing 18:08: Pharmacy [place] Consult 31 Dosing Protocol PHARMAC Y USE ONLY Note: This is not a medication order. This is a consultati on order. potassium 2022-10 No Notes: Memori a chloride 0-14 (Same as: l 14:08: Potassium Raul 00 Chloride) albuterol-i 2022-10 Yes Notes: Jose Francisco zhang pratropium 0-13 (Same as: l 2.5-0.5 mg 20:00: Duoneb) Herm bernie inhalation 00 solution predniSONE 2022-10 Yes Notes: Memor ia 0-13 Take with l 20:00: food. Raul 00 albuterol 2022-10 Yes Notes: SEE Me moria 0.083% 0-13 RT l inhalation 19:17: DOCUMENTAT H ermann solution 00 ION (Same as: Proventil) albuterol-i 2022-10 Yes Notes: Jose Francisco zhang pratropium 0-13 (Same as: l 2.5-0.5 mg 19:17: Duoneb) Herm bernie inhalation 00 solution Lasix 2022-10 Yes Notes: Memoria 0-13 (Same as: l 14:00: Lasix) Raul 00 MEDICATION WASTE Product Size: 40 mg Product Wasted: ___ mg cefTRIAXone 2022-10 No 1 gm, Memor ia 0-12 Route: l 21:00: IVPB, Drug Raul form: PDR/INJ, [id number], Dosing Weight 73.6, kg, Start date: 07/12/23 16:00:00 CDT, Duration: 5 day, Stop date: 07/16/23 16:00:00 CDT, UTI, SSTI, CAP, ABX Indication : Pneumonia docusate 2022-10 Yes Notes: Memoria 0-12 (Same as: l 14:00: Colace) Raul 00 (Do Not Crush) heparin 2022-10 Yes Notes: Memoria 0-12 porcine l 14:00: heparin Raul 00 carvedilol 2022-10 Yes Notes: Memor ia 0-12 Give with l 14:00: food. Raul 00 (Same As: Coreg) levothyroxi 2022-10 Yes Notes: Jose Francisco zhang ne 0-12 Take 1 l 11:30: hour Raul 00 before or 2 hours after meal; Enteral feeds may interefere with the absorption of this medication .(Same as:Levothr oid) Rocephin + 2022-10 Yes Notes: Memor ia Sodium 0-12 (Same As: l Chloride 11:00: Rocephin). Her ivory 0.9% IV 100 00 Use with mL 100 mL NS and infuse over 30 min MEDICATION WASTE Product Size: 1000 mg Product Wasted: ___ mg azithromyci 2022-10 No Notes: Jose Francisco zhang n + Sodium 0-12 (Same As: l Chloride 11:00: Zithromax Herm bernie 0.9% IV 250 00 IV) mL D10W 2022-10 Yes 250 mL, Memoria (bolus) IV 0-12 999 ml/hr, l 10:42: Route: IV, Drug Form: INJ, Dosing Weight 79.545, kg, PRN, PRN Blood Glucose Results, Start date: 07/12/23 5:42:00 CDT, Duration: 30 day, Stop date: 08/11/23 4:41:00 POT RELINER, Infuse over: 0.3 hr, 0 Dextrose 2022-10 No 25 mL, Memoria 50% Syringe 0-12 Route: l (D50W) 10:24: IVP, Dosing Weight 79.545, kg, PRN, PRN Blood Glucose Results, Start date: 07/12/23 5:24:00 CDT, Duration: 30 day, Stop date: 08/11/23 4:23:00 POT RELINER glucagon 2022-10 Yes 1 mg, Memoria 0-12 Route: IM, l 10:24: Drug form: Raul 00 PDR/INJ, PRN, Dosing Weight 79.545, kg, PRN Blood Glucose Results, Start date: 07/12/23 5:24:00 CDT, Duration: 30 day, Stop date: 08/11/23 4:23:00 POT RELINER, 0 ondansetron 2022-10 Yes Notes: Jose Francisco zhang 0-12 (Same as: l 10:24: Zofran) [place] 00 MEDICATION WASTE Product Size: 4 mg Product Wasted: ___ mg acetaminoph 2022-10 Yes Notes: Do M emoria en 0-12 not exceed l 10:24: 4 gm/day. Raul 00 (Same as: Tylenol) potassium 2022-10 Yes /= 14 Memoria chloride 0-12 Khmer, l 10:24: may [place] 00 dissolve each 20 mEq tablet in 4 oz of water. Allow about 2 minutes for the tablets to disintegra te. Stir before giving to prepare slurry and administer . Please exclude patient's with feeding tube less than 14 Khmer (Dobhoff, J-tube, etc) and pediatric and patients. potassium 2022-10 Yes Notes: Memori a phosphate-s 0-12 (Same as: l odium 10:24: Phos-NaK) Raul phosphate 00 Each 1.5 250 mg-280 gm pkt has mg-160 mg 250mg oral powder phosphorou for s. Mix reconstitut w/2.5oz ion water and stir. potassium 2022-10 Yes Notes: Memori a phosphate + 0-12 (Same as: l Sodium 10:24: K Raul Chloride 00 Phosphate. 0.9% IV 250 ) Do not mL infuse phosphorou s concurrent ly in the same line as TPN or IVF that contains calcium. For double lumen central lines, phosphorou s may be infused in a separate lumen from TPN. 1 mMol phoshate has 1.47 mEq potassium Infuse over 4 hours sodium 2022-10 Yes Notes: Memoria phosphate + 0-12 Infuse l Dextrose 5% 10:24: over 4 Herm bernie in Water IV 00 hour. Do 250 mL not infuse phosphorou s concurrent ly in the same line as TPN or IVF that contains calcium. For double lumen central lines, phosphorou s may be infused in a separate lumen from TPN. magnesium 2022-10 Yes Notes: Memori a sulfate 0-12 WASTE: F/P l 10:24: - Sink; E Raul 00 - Municipal Trash Bin magnesium 2022-10 Yes Notes: Memori a oxide 0-12 (Same as: l 10:24: Mag-Ox [place] 400) Magnesium oxide 832zw=264d g elemental magnesium Dose=____m g magnesium oxide (___mg elemental magnesium) calcium 2022-10 Yes Notes: Memoria gluconate 0-12 Contains: l 10:24: calcium gluconate 20mg/mL NaCl 0.67% 100mL WASTE: F/P - Sink; E - Municipal Trash Bin calcium 2022-10 Yes Notes: Memoria gluconate + 0-12 WASTE: F/P l Sodium 10:24: - Sink; E Ajay n Chloride 00 - 0.9% IV 120 Municipal mL Trash Bin Lasix 2022-10 No 40 mg, Memoria 0-12 Route: l 09:06: IVP, Drug [place] form: INJ, ONCE, Dosing Weight 79.545, kg, Priority: STAT, Start date: 07/12/23 4:06:00 CDT, Stop date: 07/12/23 4:06:00 CDT Lasix 2022-10 No 40 mg, Memoria 0-12 Route: l 08:40: IVP, Drug Raul form: INJ, ONCE, Dosing Weight 79.545, kg, Priority: STAT, Start date: 07/12/23 3:40:00 CDT, Stop date: 07/12/23 3:40:00 CDT valproic Yes 500 mg = 2 Mem oria acid 250 mg 3-01 cap, PO, l oral 16:43: Q8H, # 30 Raul capsule(Dep 00 cap, 0 ekene) Refill(s), Pharmacy: [facility] #[id number], 149.86, cm, 11/27/22 8:13:00 POT RELINER, Height, 86.364, kg, 11/27/22 8:13:00 POT RELINER, Weight Tylenol 2022-0 No 1 tab, PO, Jose Francisco zhang with 3-01 Q6H, PRN l Codeine #3 16:43: Pain Score H ermann oral tablet 00 7-10, X 3 day, # 12 tab, 0 Refill(s), Pharmacy: [facility] #[id number], 149.86, cm, 11/27/22 8:13:00 POT RELINER, Height, 86.364, kg, 11/27/22 8:13:00 POT RELINER, Weight rOPINIRole 2022-0 Yes 2 mg = 1 Mem oria 2 mg oral 3-01 tab, PO, l tablet 16:42: Q12H, 0 [place] Refill(s) acetaminoph 3-0 Yes 100.4 F, M emoria en 325 mg 3-01 0 l oral 16:42: Refill(s) [place] tablet. 00 donepezil 2022-0 No 10 mg, 2 Jose Francisco zhang 2-28 tab, l 15:00: Route: PO, [place] 00 Drug form: TAB, Daily, Dosing Weight 86.364, kg, Start date: 11/28/22 9:00:00 POT RELINER, Duration: 30 day, Stop date: 12/27/22 9:00:00 CDT, 0 ferrous 2022-0 No Notes: Memoria sulfate 2-28 Give with l 15:00: food. "Do Raul 00 Not Crush" NIFEdipine 2022-0 No 30 mg, 1 Mem oria 30 mg oral 2-28 tab, l tablet, 15:00: Route: PO, Herm bernie extended 00 Drug form: release ERTAB, Daily, Dosing Weight 86.364, kg, Start date: 11/28/22 9:00:00 POT RELINER, Duration: 30 day, Stop date: 12/27/22 9:00:00 CDT, 0 heparin 2022-0 No Notes: Memoria 5000 2-28 porcine l units/mL 14:00: heparin Ajay n injectable 00 solution levothyroxi 2022-0 No 112 Memori a ne 2-28 microgram, l 12:00: 1 tab, [place] 00 Route: PO, Drug form: TAB, Q6AM, Dosing Weight 86.364, kg, Start date: 11/28/22 6:00:00 POT RELINER, Duration: 30 day, Stop date: 12/27/22 6:00:00 CDT, 0 Wellbutrin 2022-0 No 150 mg, 1 Me moria SR 2-28 tab, l 03:00: Route: PO, Drug form: ERTAB, Q12H, Dosing Weight 86.364, kg, Start date: 11/27/22 21:00:00 POT RELINER, Duration: 30 day, Stop date: 12/27/22 9:00:00 [...] Weight 86.364, kg, Start date: 11/27/22 21:00:00 POT RELINER, Duration: 30 day, Stop date: 12/26/22 21:00:00 CDT, 0 primidone 2022-0 No Notes: Memori a 2-28 (Same as: l 03:00: Mysoline) rOPINIRole 2022-0 No Notes: Memor ia 2-28 TIME l 03:00: CRITICAL MEDICATION (Same as: Requip) rOPINIRole 2022-0 No 4 mg, 1 Jose Francisco zhang 2-27 tab, l 23:00: Route: PO, Drug form: TAB, BID, Dosing Weight 86.364, kg, Start date: 11/27/22 17:00:00 POT RELINER, Duration: 30 day, Stop date: 12/27/22 9:00:00 CDT pantoprazol 2022-0 No 40 mg, 1 Me moria e 2-27 tab, l 23:00: Route: PO, Drug form: ECTAB, BID, Dosing Weight 86.364, kg, Start date: 11/27/22 17:00:00 POT RELINER, Duration: 30 day, Stop date: 12/27/22 9:00:00 CDT valproic 2022-0 No 500 mg, 2 Jose Francisco zhang acid 250 mg 2-27 cap, l oral 22:00: Route: PO, [place] capsule(Dep Drug form: ekene) CAP, Q8H, Dosing Weight 86.364, kg, Start date: 11/27/22 16:00:00 POT RELINER, Duration: 7 day, Stop date: 12/04/22 8:00:00 POT RELINER, 0 gabapentin No 100 mg, 1 Me moria 100 mg oral 2-27 cap, l capsule 17:20: Route: PO, Herm bernie 00 Drug form: CAP, Daily, Dosing Weight 86.364, kg, Priority: NOW, Start date: 11/27/22 11:20:00 POT RELINER, Duration: 30 day, Stop date: 12/27/22 9:00:00 CDT, 0 levETIRAcet No Notes: Jose Francisco zhang am 2-27 (Same l 15:00: as:Keppra) docusate No Notes: Memoria 2-27 (Same as: l 15:00: Colace) (Do Not Crush) senna No Notes: Memoria 2-27 (Same as: l 15:00: Senokot) Saline No Notes: Memoria Flush 0.9% 2- (Same as: l 15:00: BD Posiflush) acetaminoph [...] 2-27 mL, Route: l 09:01: IVP, Drug Raul 00 form: INJ, Q15Min, Dosing Weight 86.364, kg, Start date: 11/27/22 3:01:00 POT RELINER, Duration: 3 doses or times, Stop date: 11/27/22 3:31:00 POT RELINER, 0 Tylenol No Notes: Do Memor ia with -27 not exceed l Codeine #3 09:01: 4gm/day of H ermann oral tablet 00 acetaminop hen. (Same as: Tylenol with Codeine # 3) tramadol No Notes: Not Mem oria - to exceed l 09:01: 400mg/day. [place] 00 (Same As: Ultram) Saline No Notes: Memoria Flush 0.9% 11-27 (Same as: l 09:01: BD Raul Posiflush) Insulin No Notes: Memoria regular 11-27 (Same as: l 09:01: Humulin R) [place] 00 Roll in palms of hands gently; Do not shake vigorously . WASTE: F/P - Black; E - Science Fantasy Trash Bin Stable for 31 days at room temperatur e Expires in days from ____Date acetaminoph No 1,000 mg, M emoria en 11-27 Route: PO, l 06:27: Drug form: [place] 00 TAB, ONCE, Dosing Weight 86.364, kg, Priority: STAT, Start date: 11/27/22 0:27:00 POT RELINER, Stop date: 11/27/22 0:27:00 POT RELINER Keppra No 1,000 mg, Memori a 11-27 Route: l 06:27: IVPB, Drug [place] 00 form: INJ, ONCE, Dosing Weight 86.364, kg, Loading Dose, Priority: STAT, Start date: 11/27/22 0:27:00 POT RELINER, Stop date: 11/27/22 0:27:00 POT RELINER heparin No Notes: Memoria 5000 2-22 porcine l units/mL 22:00: heparin Ajay n injectable 00 solution Tylenol No 1 tab, PO, Jose Francisco zhang with 2-22 Q6H, PRN l Codeine #3 19:14: Pain Score H ermann oral tablet 00 4-6, X 3 day, # 12 tab, 0 Refill(s), [facility]acy: [id number], 149.86, cm, 11/21/22 4:11:00 POT RELINER, Height, 86.364, kg, 11/21/22 4:11:00 POT RELINER, Weight gabapentin 2022-0 Yes 100 mg = 1 M emoria 100 mg oral 2-22 cap, PO, l capsule 19:13: Daily, # Ajay n 00 10 cap, 0 Refill(s), Pharmacy: [id number], 149.86, cm, 11/21/22 4:11:00 POT RELINER, Height, 86.364, kg, 11/21/22 4:11:00 POT RELINER, Weight Keppra 500 2022-0 Yes 500 mg = 1 M emoria mg oral 2-22 tab, PO, l tablet 19:13: Q12H, # 12 Jessie nn 00 tab, 0 Refill(s), Pharmacy: [id number], 149.86, cm, 11/21/22 4:11:00 POT RELINER, Height, 86.364, kg, 11/21/22 4:11:00 POT RELINER, Weight methocarbam 2022-0 Yes 500 mg = 1 Memoria ol 500 mg 2-22 tab, PO, l oral tablet 19:13: Q8H, X 10 H ermann 00 day, # 30 tab, 0 Refill(s), [facility]acy: [id number], 149.86, cm, 11/21/22 4:11:00 POT RELINER, Height, 86.364, kg, 11/21/22 4:11:00 POT RELINER, Weight Zofran 4 mg 2023-0 Yes 4 mg = 1 Me moria oral tablet 2-22 tab, PO, l 19:13: Q8H, PRN Raul 00 Nausea/vom iting, X 7 day, # 21 tab, 0 Refill(s), Pharmacy: [facility] #[id number], 149.86, cm, 11/21/22 4:11:00 POT RELINER, Height, 86.364, kg, 11/21/22 4:11:00 POT RELINER, Weight donepezil No Notes: Memori a 2-22 (Same as: l 15:00: Aricept) [place] 00 ferrous No Notes: Memoria sulfate 2-22 Give with l 15:00: food. "Do [place] 00 Not Crush" Lasix No Notes: Memoria 2-22 (Same as: l 15:00: Lasix) May 00 cause GI upset. Give with food or milk. levothyroxi No Notes: Jose Francisco zhang ne 2-22 Take 1 l 15:00: hour [place] 00 before or 2 hours after meal; [...] 00 mg, Route: PO, Daily, 11/22/22 9:00:00 POT RELINER, Duration: 30 day, Stop date: 12/21/22 9:00:00 CDT Keppra 500 No Notes: Memor ia mg oral 2-22 (Same l tablet 03:00: as:Keppra) Jessie nn 00 Coreg No Notes: Memoria 2-22 Give with l 03:00: food. Raul 00 (Same As: Coreg) Lexapro No 20 mg, 2 Memori a 2-22 tab, l 03:00: Route: PO, [place] 00 Drug form: TAB, Q12H, Dosing Weight 86.364, kg, Start date: 11/21/22 21:00:00 POT RELINER, Duration: 30 day, Stop date: 12/21/22 9:00:00 CDT, 0 Pepcid 40 No Notes: Memori a mg oral 2-22 (Same as: l tablet 03:00: Pepcid) Raul lovastatin No 20 mg, 1 Mem oria 2-22 tab, l 03:00: Route: PO, Drug form: TAB, Bedtime, Dosing Weight 86.364, kg, Start date: 11/21/22 21:00:00 POT RELINER, Duration: 30 day, Stop date: 12/20/22 21:00:00 CDT primidone No 50 mg, 1 Jose Francisco zahng 2-22 tab, l 03:00: Route: PO, Drug form: TAB, Bedtime, Dosing Weight 86.364, kg, Start date: 11/21/22 21:00:00 POT RELINER, Duration: 30 day, Stop date: 12/20/22 21:00:00 CDT, 0 rOPINIRole No 4 mg, 2 Jose Francisco zhang 2-22 tab, l 03:00: Route: PO, Drug form: TAB, Q12H, Dosing Weight 86.364, kg, Start date: 11/21/22 21:00:00 POT RELINER, Duration: 30 day, Stop date: 12/21/22 9:00:00 CDT, 0 Lipitor No Notes: Memoria 2-22 (Same As: l 03:00: Lipitor) Robaxin No Notes: Memoria 2-22 (Same l 00:27: as:Robaxin ) Tylenol No Notes: Do Memor ia with 2-22 not exceed l Codeine #3 00:21: 4gm/day of H ermann oral tablet 00 acetaminop hen. (Same as: Tylenol with Codeine # 3) gabapentin No Notes: Memor ia 100 mg oral 2-22 (Same as: l capsule 00:16: Neurontin) normal No 1,000 mL, Memori a saline 0.9% 2-21 Rate: 75 l IV 1,000 mL 22:13: ml/hr, Infuse over: 13.3 hr, Route: IV, Dosing Weight 86.364 kg, Total Volume: 1,000, Start date: 11/21/22 16:13:00 POT RELINER, Duration: 30 day, Stop date: 03/23/23 16:12:00 CDT, BSA: 1.93 m2, 0 Voltaren 0 Yes 2 gm, TOP, Mem oria Topical 1% 2-21 QID, PRN, l topical gel 18:29: 0 Ajay n 00 Refill(s) Vitamin D2 Yes 50,000 Memor ia 50,000 intl 2-21 IntlUnit = l units (1.25 18:29: 1 cap, PO, [place] mg) oral 00 qWeek, capsule then 1 cap qmonth, 0 Refill(s) fluocinonid 0 Yes 1 appl, Mem oria e topical 2-21 TOP, BID, l 0.05% 18:28: 0 Raul solution 00 Refill(s) ketoconazol Yes 1 appl, Mem oria e topical 2-21 TOP, BID, l 2% cream 18:28: 0 Raul 00 Refill(s) halobetasol Yes 1 appl, Mem [...] 2-21 tab, PO, l 18:27: Daily, 0 [place] 00 Refill(s) Pepcid 40 0 Yes 40 [...] tab, PO, l tablet 18:26: Daily, 0 [place] 00 Refill(s) NIFEdipine Yes 30 mg = 1 Me moria (Eqv-Procar 2-21 tab, PO, l afua XL) 30 18:26: Daily, 0 Her ivory mg oral 00 Refill(s) tablet, extended release Kerendia 10 Yes 10 mg = 1 M emoria mg oral 2-21 tab, PO, l tablet 18:26: Daily, 0 Raul 00 Refill(s) lovastatin Yes 20 mg = 1 Me moria 20 mg oral 2-21 tab, PO, l tablet 18:26: Daily, 0 Raul 00 Refill(s) Coreg 25 mg Yes 25 mg = 1 M emoria oral tablet 2-21 tab, PO, l 18:25: BID, 0 [place] 00 Refill(s) Lexapro 20 Yes 20 mg = 1 Me moria mg oral 2-21 tab, PO, l tablet 18:25: BID, 0 Raul 00 Refill(s) rOPINIRole Yes 4 mg = 1 Mem oria 4 mg oral 2-21 tab, PO, l tablet 18:25: BID, 0 [place] 00 Refill(s) pantoprazol Yes 40 mg = 1 M emoria e 40 mg 2-21 tab, PO, l oral 18:24: BID, 0 Raul enteric 00 Refill(s) coated tablet Wellbutrin Yes [...] 2-21 Patch is l 15:00: applied to [place] 00 intact skin to cover painful area [...] Total Volume: 1,000, Start date: 11/21/22 8:47:00 POT RELINER, Duration: 30 day, Stop date: 12/21/22 8:46:00 [...] Weight 86.364, kg, Start date: 11/21/22 8:47:00 POT RELINER, Duration: 3 doses or times, Stop date: 11/21/22 9:17:00 POT RELINER, 0 Saline No Notes: Memoria Flush 0.9% 2-21 (Same as: l 14:47: BD Raul 00 Posiflush) Tylenol No 1,000 mg, Memor ia 2-21 Route: PO, l 14:03: ONCE, Raul 00 Dosing Weight 86.364, kg, Start date: 11/21/22 8:03:00 POT RELINER, Stop date: 11/21/22 8:03:00 POT RELINER Saline No Notes: Memoria Flush 0.9% 2-21 [...] nn 00 90 tab, 2 Refill(s), Pharmacy: [facility] #[id number], 149.86, cm, 11/02/21 14:32:00 POT RELINER, Height, 90.455, kg, 11/02/21 14:32:00 POT RELINER, Weight NIFEdipine Yes TAKE 1 Memor ia (Eqv-Adalat 2-02 TABLET BY l CC) 30 mg 20:38: MOUTH Raul oral 00 EVERY DAY tablet, ON EMPTY extended STOMACH release FOR 30 DAYS Furosemide Yes TAKE 1 Memor ia 40 MG Oral 2-02 TABLET BY l Tablet 20:38: MOUTH [place] 00 EVERY DAY NEEDED FOR SWELLING tramadol Yes TAKE 1 Memoria hydrochlori 2-02 TABLET BY l de 50 MG 20:38: MOUTH Raul Oral Tablet 00 EVERY 6 TO 8 HOURS NEEDED predniSONE Yes TAKE 1 Memor ia 10 mg oral 2-02 TABLET BY l tablet 20:38: MOUTH [place] 00 EVERY DAY FOR 90 DAYS doxycycline [...] 2-02 TABLET BY l tablet 20:38: MOUTH [place] 00 THREE TIMES A DAY donepezil Yes = 1 tab, Jose Francisco zhang 10 mg oral 3-26 PO, Daily, l tablet 19:08: # 90 tab, Ajay n 00 1 Refill(s), Pharmacy: [facility] #[id number], 149.86, cm, 12/24/20 13:59:00 CDT, Height, 93.182, kg, 12/24/20 13:59:00 CDT, Weight primidone Yes 50 mg = 1 Mem oria 50 mg oral 3-26 tab, PO, l tablet 19:08: Bedtime, # Jessie nn 00 90 tab, 2 Refill(s), Pharmacy: [facility] #[id number], 149.86, cm, 12/24/20 13:59:00 CDT, Height, 93.182, kg, 12/24/20 13:59:00 CDT, Weight Lidocaine Lidocaine 2020-0 No 10mg Com 12-09 [facility] 00:00: - [facility] Celestone Celestone 2020-0 No 6mg Com mon Soluspan Soluspan 3-11 [facility] (Betamethas (Betamethas 00:00: - [facility] one) one) 00 [facility] Lidocaine Lidocaine 2020-0 No 10mg Com 12-09 [facility] 00:00: - [facility] Celestone Celestone 2020-0 No 6mg Com mon Soluspan Soluspan 3-11 Spirit (Betamethas (Betamethas 00:00: - [facility] one) one) [facility] Lidocaine Lidocaine 2020-0 No 10mg Com 12-09 [facility] 00:00: - [facility] Celestone Celestone 1-0 No 6mg Com mon Soluspan Soluspan 3-11 Spirit (Betamethas (Betamethas 00:00: - [facility] one) one) 00 [facility] Lidocaine Lidocaine 1-0 No 10mg Com mon 3- [facility] 00:00: - [facility] 00 [facility] Celestone Celestone 1-0 No 6mg Com mon Soluspan Soluspan 3-11 Spirit (Betamethas (Betamethas 00:00: - [facility] one) one) 00 [facility] Lidocaine Lidocaine 1-0 No 10mg Com sun 3 [facility] 00:00: - [facility] 00 [facility] Celestone Celestone 2020-0 No 6mg Com mon Soluspan Soluspan 3-11 Spirit (Betamethas (Betamethas 00:00: - [facility] one) one) 00 [facility] Lidocaine Lidocaine 1-0 No 10mg Com 12-09 [facility] 00:00: - [facility] 00 [facility] Celestone Celestone 1-0 No 6mg Com mon Soluspan Soluspan 3-11 Spirit (Betamethas (Betamethas 00:00: - [facility] one) one) 00 [facility] Lidocaine Lidocaine 2020-0 No 10mg Com sun 3- [facility] 00:00: - [facility] 00 [facility] Celestone Celestone 1-0 No 6mg Com mon Soluspan Soluspan 3-11 [facility] (Betamethas (Betamethas 00:00: - [facility] one) one) 00 [facility] Lidocaine Lidocaine 1-0 No 10mg Com sun 3- [facility] 00:00: - [facility] 00 [facility] Celestone Celestone 1-0 No 6mg Com mon Soluspan Soluspan 3-11 Spirit (Betamethas (Betamethas 00:00: - [facility] one) one) 00 [facility] Lidocaine Lidocaine 1-0 No 10mg Com mon 3- [facility] 00:00: - [facility] 00 [facility] Celestone Celestone 1-0 No 6mg Com mon Soluspan Soluspan 3-11 Spirit (Betamethas (Betamethas 00:00: - [facility] one) one) [facility] Lidocaine Lidocaine No 10mg Com mon 3-11 [facility] 00:00: - [facility] Celestone Celestone No 6mg Com sun Soluspan Soluspan 12-09 Spirit (Betamethas (Betamethas 00:00: - [facility] one) one) [facility] Lovastatin 2019-10 No 20 mg, 1 Mem oria 2-07 tab, l 03:00: Route: PO, Drug form: TAB, Bedtime, Dosing Weight 104.545, kg, Start date: 09/05/20 21:00:00 POT RELINER, Duration: 30 day, Stop date: 10/04/20 21:00:00 POT RELINER Primidone 2019-10 No Notes: Memori a 2-07 [...] 104.545, kg, Daily, Start date: 09/05/20 9:00:00 POT RELINER, Duration: 30 day, Stop date: 10/04/20 9:00:00 POT RELINER gabapentin 2019-10 No Notes: Memor ia 300 MG Oral 2-06 (Same as: l Capsule 15:00: Neurontin) ropinirole 2019-10 No Notes: Memor ia 2-06 (Same as: l 15:00: Requip) Streptococc 2019-10 No Notes: Jose Francisco zhang us 2-06 Shake well l pneumoniae 14:12: prior to Her ivory serotype 1 45 use (Same capsular as: antigen Prevnar diphtheria 13) [id number] protein conjugate vaccine / Streptococc us pneumoniae serotype 14 capsular antigen diphtheria [id number] protein conjugate vaccine / Streptococc us pneumoniae serotype 18C capsular antigen d Thyroxine 2019-10 No Notes: Memori a 2-06 Take 1 l 14:00: hour [place] 00 before or 2 hours after meal; Enteral feeds may interefere with the absorption of this medication . (Same as:Levothr oid) Iohexol 2019-10 No 100 mL, Memoria 2- Route: l 12:39: IVP, Drug Form: SOLN, Dosing Weight 104.545, kg, ONCALL, STAT, Start date: 09/05/20 6:39:00 POT RELINER, Duration: 1 doses or times, Dose = 2.2ml/kg, Max dose = 100ml -- "To be infused by Radiology Staff ONLY" Acetaminoph 2019-10 No Notes: Max Memoria en 2-06 acetaminop l 07:00: hen 4000 [place] 00 mg/day (4 gm/day). (Same as: Tylenol [...] Blood Glucose Results, Start date: 09/05/20 0:47:00 POT RELINER, Duration: 30 day, Stop date: 10/05/20 0:46:00 POT RELINER, 0 Glucagon 2019-10 No 1 mg, Memoria 2- Route: IM, l 06:47: Drug form: PDR/INJ, PRN, Dosing Weight 104.545, kg, PRN Blood Glucose Results, Start date: 09/05/20 0:47:00 POT RELINER, Duration: 30 day, Stop date: 10/05/20 0:46:00 POT RELINER, 0 sennosides, 2019-10 No Notes: Jose Francisco zhang ASSISTED 2-06 (Same as: l 06:47: Senokot) POLYETHYLEN [...] Total Volume: 1,000, Start date: 09/05/20 0:47:00 POT RELINER, Duration: 1 day, Stop date: 09/06/20 0:46:00 POT RELINER, 1.97, m2, 0 Tums 2019-10 No Notes: [...] 0.65% 2-06 (Same as: l solution 06:47: [place], Deep [place] Nasal [place]). Tessalon 2019-10 No Notes: Memoria Perles 2-06 [...] Hydralazine 2019-10 No Notes: Jose Francisco zhang 11-06 (Same as: l 06:45: Apresoline Raul 00 ) Push over 5 minutes Acetaminoph 2019-10 No 1 tab, Jose Francisco zhang en 325 MG / 11-06 Route: PO, l Hydrocodone 04:07: Drug Form: Raul Bitartrate 00 TAB, 5 MG Oral Dosing Tablet Weight 104.545, kg, ONCE, STAT, Start date: 09/04/20 22:07:00 POT RELINER, Stop date: 09/04/20 22:07:00 POT RELINER HYDROcodone 2019- No 1{tbl} 1 tablet, Univers -acetaminop 06-28 Oral, ity of hen (NORCO 20:30: 19:23 ONCE, 1 Carlos as 5) 5-325 mg 00 :00 dose, Mon Med ical tablet 1 06/28/20 at [facility] h tablet 1530, DIMITRIS metoprolol [...] :00 ONCE, 1 Medical 25 mcg dose, [facility] Branch 06/28/20 at 1315, STAT diphenoxyla 2020-0 Yes 1{tbl} Take 1 Un martha te-atropine 9-28 tablet by ity of (LOMOTIL) 17:14: mouth [place] 2.5-0.025 43 every 6 Medical mg tablet (six) Branch hours as needed. ALBUTEROL 2020-0 Yes Inhale. Unive rs SULFATE 06-28 ity of INHALE 17:14: [place] [id number] Medical Branch misoprostol 0 2020- No 200ug [...] rs SULFATE 06-28 ity of INHALE 12:14: [address] Branch diphenoxyla 2020-0 Yes 1{tbl} Take 1 Un martha te-atropine 9-28 tablet by ity of (LOMOTIL) 12:14: mouth [place] 2.5-0.025 43 every 6 Medical mg tablet (six) Branch hours as needed. ALBUTEROL 2020-0 Yes Inhale. Unive rs SULFATE 06-28 ity of INHALE 12:14: [address] Branch acetaminoph 2020-0 Yes [id number] 1{tbl} [...] Jessie nn 00 tab, 3 Refill(s), Pharmacy: [facility] #[id number], 149.86, cm, 05/25/20 13:41:00 CDT, Height, 95.455, kg, 05/25/20 13:41:00 CDT, Weight primidone 2020-0 No 50 mg = 1 Mem oria 50 mg oral 6-25 tab, PO, l tablet 13:48: Bedtime, # Jessie nn 00 90 tab, 3 Refill(s), Pharmacy: [facility] #[id number], 149.86, cm, 03/24/20 9:12:00 CDT, Height, 90.909, kg, 03/24/20 9:12:00 CDT, Weight donepezil 2020-0 Yes 10 mg = 1 Mem oria 10 mg oral 6-24 tab, PO, l tablet 14:32: Daily, # Raul 00 30 tab, 3 Refill(s), Pharmacy: [facility] #[id number], 149.86, cm, 03/24/20 9:12:00 CDT, Height, 90.909, kg, 03/24/20 9:12:00 CDT, Weight primidone 2020-0 No 50 mg = 1 Mem oria 50 mg oral 6-24 tab, PO, l tablet 14:32: Bedtime, X Jessie nn 00 30 day, # 30 tab, 3 Refill(s), Pharmacy: [facility] #[id number], 149.86, cm, 03/24/20 9:12:00 CDT, Height, 90.909, kg, 03/24/20 9:12:00 CDT, Weight sucralfate 2019- Yes [id number] .25[in_ Apply 0.25 Univers malate, 5- us] Inches as ity of polymerized 00:00: directed 4 [place] 1 gram/10 00 (four) Medical mL Pste times Branch daily as needed for Pain (scale 1-3). sucralfate 2020- No [id number] .25[in_ Apply 0.25 Univers malate, 5 09-28 us] Inches as ity of polymerized 00:00: 00:00 directed 4 [place] 1 gram/10 00 :00 (four) Medical mL Pste times Branch daily as needed for Pain (scale 1-3). topiramate 2018-10 No 25 mg = 1 Me moria 25 MG Oral 0-24 tab, PO, l Tablet 20:22: Bedtime, # Jessie nn [Topamax] 00 30 tab, 3 Refill(s) Walker 2019-0 Yes 1 ea, Memoria 7-26 MISC, l 21:45: Daily, # 1 [place] 00 ea, 0 Refill(s) Adult 0 Yes 81 mg = 1 Memoria Aspirin 81 6-21 tab, CHEW, l mg oral 20:18: Daily, Lilian gorman tablet, 00 30 tab, 3 chewable Refill(s), Pharmacy: [facility] #[id number] levothyroxi 2018- Yes 125 Memori a ne 125 mcg 5-24 microgram l (0.125 mg) 20:29: = 1 tab, Her ivory oral tablet 00 PO, Daily, # 30 tab, 0 Refill(s) gabapentin 2018- Yes 300 mg = 1 M emoria 300 MG Oral 5-24 cap, PO, l Capsule 20:29: BID, # 90 Jessie nn 00 cap, 1 Refill(s) metoprolol 2018- Yes 50 mg = 1 Me moria 50 mg oral 5-24 tab, PO, l tablet, 20:06: Daily, Lilian Moss n extended 00 30 tab, 0 release [...] tab, PO, l tablet 20:06: Daily, # [place] 00 90 tab, 0 Refill(s) Atropine 2019 [...] tab, PO, l tablet 20:06: Daily, # [place] 00 30 tab, 0 Refill(s) donepezil Yes 10 mg = 1 Mem oria 10 mg oral 5-24 tab, PO, l tablet 20:06: Daily, # Raul 00 30 tab, 0 Refill(s) ProAir HFA Yes 1 - 2 Memori a 5-24 puffs, PO, l 20:06: Q4H, PRN [place] 00 Wheezing / cough / shortness of breath, # 1 ea, 0 Refill(s) [facility]aminoph 2017-10 [facility] ity of 300-30 mg 00:00: [place] tablet 00 Medical Branch acetaminoph 2017-10 [facility] 1-18 ity of 300-30 mg 00:00: [place] tablet 00 Medical Branch acetaminoph 2017-10 2020- No Unive rs en-codeine -18 06-28 ity of 300-30 mg 00:00: 00:00 [place] [...] mouth ity of mg tablet 17:04: daily. [place] 36 Medical Branch lovastatin 2017-0 Yes 20mg [...] of mg tablet 17:04: daily. [place] [address] Medical Branch lovastatin 2017-0 Yes 20mg Take [...] of mg tablet 17:04: daily. [place] [address] Medical Branch lovastatin 2017-0 Yes 20mg Take [...] of mg tablet 11:04: daily. [place] [address] Medical Branch lovastatin 2017-0 Yes 20mg Take [...] mouth ity of 10 mg 11:04: daily. [place] tablet 36 Medical Branch amLODIPine Yes 5mg Take 5 mg Un martha (NORVASC) 5 3-07 by mouth ity of mg tablet 11:04: daily. [place] [address] Medical Branch lovastatin Yes 20mg Take 20 mg U nivers (MEVACOR) 3-07 by mouth ity of 20 mg 11:04: daily. [place] tablet 36 Medical Branch Advair Advair No [...] Oxalate 20 MG 20 MG 20 MG escitalopra escitalopra No escitalopr Devoted m 20 mg m 20 mg am 20 mg Medic al tablet TAKE tablet TAKE tablet Group 1 TABLET BY 1 TABLET BY TAKE 1 MOUTH TWICE MOUTH TWICE TABLET BY A DAY A DAY MOUTH TWICE A DAY Cephalexin Cephalexin No Cephalexin traMADol traMADol [...] Omeprazole 40 MG 40 MG 40 MG famotidine famotidine No famotidine Devoted 20 mg 20 mg 20 mg Medical tablet TAKE tablet TAKE tablet Group 1 TABLET BY 1 TABLET BY TAKE 1 MOUTH EVERY MOUTH EVERY TABLET BY DAY DAY MOUTH EVERY DAY Flublok Flublok No Flublok Quadrivalen [...] % Sodium 1 % Sodium 1 % gabapentin gabapentin No gabapentin Devoted 300 mg 300 mg 300 mg Medical capsule capsule capsule Group TAKE 1 TAKE 1 TAKE 1 CAPSULE BY CAPSULE BY CAPSULE BY MOUTH TWICE MOUTH TWICE MOUTH A DAY A DAY TWICE A DAY Lovastatin Lovastatin No QD Lovastatin 20 [...] Mupirocin Mupirocin No Mupirocin Calcium Calcium Calcium ipratropium ipratropium No ipratropiu Devoted bromide 21 bromide 21 m bromide Medical mcg (0.03 mcg (0.03 21 mcg Anand up %) nasal %) nasal (0.03 %) spray USE spray USE nasal SPRAY UP TO SPRAY UP TO spray USE 4 TIMES 4 TIMES SPRAY UP DAILY DAILY TO 4 TIMES DAILY Pantoprazol Pantoprazol No Pantoprazo e Sodium e [...] Sodium 1 % Lomotil Lomotil No Lomotil levothyroxi levothyroxi No levothyrox Devoted ne 125 mcg ne 125 mcg ine 125 Medical tablet TAKE tablet TAKE mcg tablet Group 1 TABLET BY 1 TABLET BY TAKE 1 MOUTH EVERY MOUTH EVERY TABLET BY DAY DAY MOUTH EVERY DAY Sulfamethox Sulfamethox No Sulfametho azole-Trime azole-Trime [...] Levothyrox ne Sodium ne Sodium ine Sodium lisinopril lisinopril No 1 Q1D lisinopril Devoted [...] traMADol traMADol No traMADol HCl HCl HCl lovastatin lovastatin No lovastatin Devoted 20 mg [...] 5 t} Besylate 5 MG MG MG metoprolol metoprolol No metoprolol Devoted succinate succinate succinate Medical 50 mg daily 50 mg daily 50 mg Group daily Mupirocin Mupirocin No Mupirocin Calcium Calcium Calcium [...] t} 40 MG Gabapentin Gabapentin No Gabapentin omeprazole omeprazole No omeprazole Devoted 40 mg 40 mg 40 mg Medical capsule,del capsule,del capsule,de Group ayed ayed layed release release release TAKE 1 TAKE 1 TAKE 1 CAPSULE BY CAPSULE BY CAPSULE BY MOUTH EVERY MOUTH EVERY MOUTH DAY DAY EVERY DAY Sulfamethox Sulfamethox No Sulfametho azole-Trime azole-Trime [...] MOUTH EVERY MOUTH DAY DAY EVERY DAY rOPINIRole rOPINIRole No 1{table BID [...] ER Chloride ER Lomotil Lomotil No Lomotil primidone primidone No primidone Devoted 50 mg 50 mg 50 mg Medical tablet TAKE tablet TAKE tablet Group 1 TABLET BY 1 TABLET BY TAKE 1 MOUTH MOUTH TABLET BY EVERYDAY AT EVERYDAY AT MOUTH BEDTIME BEDTIME EVERYDAY AT BEDTIME Gabapentin Gabapentin No Gabapentin Omeprazole Omeprazole No [...] Clindamycin No Clindamyci HCl HCl n HCl ropinirole ropinirole No ropinirole Devoted 2 mg tablet 2 mg tablet 2 mg M edical TAKE 1 TAKE 1 tablet Group TABLET BY TABLET BY TAKE 1 MOUTH TWICE MOUTH TWICE TABLET BY A DAY A DAY MOUTH TWICE A DAY Cephalexin Cephalexin No Cephalexin Ciprofloxac Ciprofloxac [...] traMADol traMADol No traMADol HCl HCl HCl topiramate topiramate No topiramate Devoted 25 mg 25 mg 25 mg Medical tablet TAKE tablet TAKE tablet Group 1 TABLET BY 1 TABLET BY TAKE 1 MOUTH AT MOUTH AT TABLET BY BEDTIME BEDTIME MOUTH AT BEDTIME buPROPion buPROPion No buPROPion HCl ER (XL) [...] 5 t} Besylate 5 MG MG MG Trelegy Trelegy No Trelegy Devote d Ellipta 100 Ellipta 100 Ellipta Medical mcg-62.5 mcg-62.5 100 Group mcg-25 mcg mcg-25 mcg mcg-62.5 powder for powder for mcg-25 mcg inhalation inhalation powder for INHALE 1 INHALE 1 inhalation PUFF BY PUFF BY INHALE 1 MOUTH EVERY MOUTH EVERY PUFF BY DAY DAY MOUTH EVERY DAY Mupirocin [...] Comments Source height 2022-11-13 10:00:00 59 [in_i] [facility] weight 2022-11-13 10:00:00 188 [lb_av] [facility] temperature 2022-11-13 10:00:00 97.9 [degF] [facility] bmi 2022-11-13 10:00:00 37.97 kg/m2 [facility] blood pressure 2022-11-13 10:00:00 114 mm[Hg] [facility] [place] [facility] blood pressure 2022-11-13 10:00:00 74 mm[Hg] [facility] - diastolic [facility] Systolic blood 2022-08-05 20:00:00 122 mm[Hg] [facility] Diastolic blood 2022-08-05 20:00:00 77 mm[facility]Hg] [facility]22-08-05 20:00:00 50 /min [facility] Respiratory rate 2022-08-05 20:00:00 18 /min [facility] Oxygen saturation in 2022-08-05 20:00:00 94 /min [facility] Arterial blood by [facility] Pulse oximetry Branch Body temperature 2022-08-05 17:24:[address] [facility] Body height 2022-08-05 17:24:00 149.9 cm [facility] Body weight 2022-08-05 17:24:00 83.915 kg [facility] BMI 2022-08-05 17:24:00 37.37 kg/m2 [facility] height 2022-07-27 13:15:00 59 [in_i] [facility] weight 2022-07-27 13:15:00 188.2 [lb_av] [facility] temperature 2022-07-27 13:15:00 97.6 [degF] [facility] bmi 2022-07-27 13:15:00 38.01 kg/m2 [facility] blood pressure 2022-07-27 13:15:00 125 mm[Hg] [facility] - systolic [facility] blood pressure 2022-07-27 13:15:00 82 mm[Hg] [facility] - diastolic [facility] height 2022-06-15 13:30:00 59 [in_i] [facility] weight 2022-06-15 13:30:00 193 [lb_av] [facility] temperature 2022-06-15 13:30:00 98.1 [degF] [facility] bmi 2022-06-15 13:30:00 38.98 kg/m2 [facility] blood pressure 2022-06-15 13:30:00 128 mm[Hg] [facility] - systolic [facility] blood pressure 2022-06-15 13:30:00 76 mm[Hg] [facility] - diastolic [facility] height 2021-10-17 14:30:00 59 [in_i] [facility] weight 2021-10-17 14:30:00 220 [lb_av] [facility] temperature 2021-10-17 14:30:00 97.9 [degF] [facility] bmi 2021-10-17 14:30:00 44.43 kg/m2 [facility] blood pressure 2021-10-17 14:30:00 126 mm[Hg] [facility] - systolic [facility] blood pressure 2021-10-17 14:30:00 74 mm[Hg] [facility] - diastolic [facility] Systolic blood 2020-06-28 19:30:00 180 mm[Hg] Bjorn becerril of pressure [facility] Diastolic blood 2020-06-28 19:30:00 82 mm[Hg] Unive rsity of pressure [place] [facility] Heart rate 2020-06-28 19:30:00 61 /min [facility] [place] [facility] Respiratory rate 2020-06-28 19:13:00 17 /min [facility] [place] [facility] Oxygen saturation in 2020-06-28 19:13:00 96 /min [facility] Arterial blood by [facility] Pulse oximetry Branch Body temperature 2020-06-28 16:54:00 36.33 Tracee [facility] [place] [facility] Body weight 2020-06-28 16:54:00 95.255 kg [facility] BMI 2020-06-28 16:54:00 42.41 kg/m2 [facility] Systolic blood 2020-06-28 19:30:00 180 mm[Hg] [facility] Diastolic blood 2020-06-28 19:30:00 82 mm[Hg] [facility] Heart rate 2020-06-28 19:30:00 61 /min [facility] Respiratory rate 2020-06-28 19:13:00 17 /min [facility] Oxygen saturation in 2020-06-28 19:13:00 96 /min [facility]ter[facility] blood by [facility] Pulse oximetry Branch Body temperature [...] 96 /min [facility] Arterial blood by [facility] tania Pulse oximetry Branch Systolic blood 2020-02-19 [...] 96 /min [facility] Arterial blood by [facility] Pulse oximetry Branch Systolic blood 2019-12-10 [...] 98 /min [facility] Arterial blood by [facility] Pulse oximetry Branch Body temperature 2019-12-10 02:51:13 36.39 Tracee [facility] Body height 2019-12-10 02:28:00 162.6 cm [facility] Body weight 2019-12-10 02:28:00 104.327 kg [facility] BMI 2019-12-10 02:28:00 39.48 kg/m2 [facility] Systolic blood 2019-12-10 04:00:00 202 mm[Hg] Univer sity of pressure [facility] Diastolic blood 2019-12-10 04:00:00 92 mm[Hg] Unive rsity of pressure [facility] Heart rate 2019-12-10 04:00:00 75 /min [facility] Respiratory rate 2019-12-10 04:00:00 18 /min [facility] Oxygen saturation in 2019-12-10 04:00:00 98 /min [facility] Arterial blood by [facility] Pulse oximetry Branch Body temperature 2019-12-10 02:51:13 36.39 Tracee [facility] Body height 2019-12-10 02:28:00 162.6 cm [facility] Body weight 2019-12-10 02:28:00 104.327 kg [facility] BMI 2019-12-10 02:28:00 39.48 kg/m2 [facility] Systolic (mm Hg) 2023-07-20 21:14:10 Jose Francisco rial [place] Diastolic (mm Hg) 2023-07-20 21:14:10 Mem [facility] Heart Rate 2023-07-20 21:14:10 [facility] Temperature Oral (F) 2023-07-20 21:13:54 98.7 F [facility] [place] Temperature Oral (F) 2023-07-20 12:55:46 97.3 F [facility] Respitory Rate 2023-07-16 12:00:00 Chaoori al [place] Height 2023-07-16 10:09:00 5 [ft_i] [facility] Weight 2023-07-16 10:09:00 [facility] [place] BMI Calculated 2023-07-16 10:09:00 Memori al [place] Heart Rate 2023-07-16 08:50:13 [facility] [place] Systolic (mm Hg) 2023-07-16 08:50:07 Jose Francisco rial [place] Diastolic (mm Hg) 2023-07-16 08:50:07 Mem o[facility] Heart Rate 2023-07-16 08:50:07 [facility] [place] Temperature Oral (F) 2023-07-16 08:49:45 98.6 F [facility] [place] Heart Rate 2023-07-16 05:15:43 [facility] [place] Systolic (mm Hg) 2023-07-16 05:15:36 Jose Francisco rial [facility] Diastolic (mm Hg) 2023-07-16 05:15:36 Mem [facility] Temperature Oral (F) 2023-07-16 05:14:09 98.5 F [facility] Respitory Rate 2023-07-16 00:07:00 [facility] Respitory Rate 2023-07-15 17:05:09 [facility] Systolic (mm Hg) 2023-07-15 17:05:04 Jose Francisco rial [facility] Diastolic (mm Hg) 2023-07-15 17:05:04 Mem [facility] Temperature Oral (F) 2023-07-15 17:04:57 98.2 F [facility] Height 2023-07-14 18:07:00 149.86 cm [facility] Weight 2023-07-14 18:07:00 [facility] [place] Height 2023-07-12 16:48:00 149.86 cm [facility] Weight 2023-07-12 16:48:00 [facility] BMI Calculated 2023-07-12 16:48:00 [facility] BMI Calculated 2023-07-12 06:53:00 [facility] [place] Weight 2023-07-12 06:53:00 [facility] Heart Rate 2022-11-29 19:18:58 [facility] [place] Systolic (mm Hg) 2022-11-29 19:18:48 Jose Francisco rial [facility] Diastolic (mm Hg) 2022-11-29 19:18:48 Mem o[facility] Heart Rate 2022-11-29 19:18:48 [facility] Temperature Oral (F) 2022-11-29 19:18:21 98.2 F [facility] Heart Rate 2022-11-29 13:36:55 [facility] [place] Systolic (mm Hg) 2022-11-29 13:36:27 Jose Francisco rial [facility] Diastolic (mm Hg) 2022-11-29 13:36:27 Mem [facility] Systolic (mm Hg) 2022-11-29 13:14:00 Jose Francisco rial [facility] Diastolic (mm Hg) 2022-11-29 13:14:00 Mem orial [place] Respitory Rate 2022-11-29 10:05:34 [facility] Temperature Oral (F) 2022-11-29 10:04:49 98.4 F [facility] Respitory Rate 2022-11-29 05:37:05 [facility] [place] Temperature Oral (F) 2022-11-29 05:36:29 97.7 F [facility] Temperature Oral (F) 2022-11-29 02:00:00 98 F [facility] [place] Respitory Rate 2022-11-28 20:51:03 [facility] [place] Height 2022-11-28 19:03:00 4 [ft_i] [facility] [place] Weight 2022-11-28 19:03:00 [facility] [place] Height 2022-11-27 14:13:00 149.86 cm [facility] [place] Weight 2022-11-27 14:13:00 [facility] [place] BMI Calculated 2022-11-27 14:13:00 Memori [facility] Height 2022-11-27 05:50:00 149.86 cm [facility] [place] BMI Calculated 2022-11-27 05:50:00 [facility] Weight 2022-11-27 05:50:00 [facility] Systolic (mm Hg) 2022-11-23 01:23:00 Jose Francisco rial [facility] Diastolic (mm Hg) 2022-11-23 01:23:00 Mem o[facility] Respitory Rate 2022-11-23 01:23:00 Memori [facility] [place] Respitory Rate 2022-11-22 22:30:00 [facility] Systolic (mm Hg) 2022-11-22 22:30:00 Jose Francisco rial [facility] Diastolic (mm Hg) 2022-11-22 22:30:00 Mem orial [place] Respitory Rate 2022-11-22 21:30:00 Mem[facility] [place] Systolic (mm Hg) 2022-11-22 21:30:00 Jose Francisco rial [facility] Diastolic (mm Hg) 2022-11-22 21:30:00 Mem o[facility] Temperature Oral (F) 2022-11-22 02:00:00 98.2 F [facility] [place] Temperature Oral (F) 2022-11-21 22:54:00 97.7 F [facility] Temperature Oral (F) 2022-11-21 16:07:00 98.2 F [facility] Weight 2022-11-21 10:11:00 [facility] [place] Heart Rate 2022-11-21 10:11:00 [facility] Height 2022-11-21 10:11:00 149.86 cm [facility] [place] BMI Calculated 2022-11-21 10:11:00 Memori [facility] [place] Systolic (mm Hg) 2021-11-02 20:14:00 Jose Francisco rial [place] Diastolic (mm Hg) 2021-11-02 20:14:00 Mem o[facility] Heart Rate 2021-11-02 20:14:00 [facility] [place] Respitory Rate 2021-11-02 20:14:00 Memori [facility] Height 2021-11-02 20:14:00 149.86 cm [facility] [place] Weight 2021-11-02 20:14:00 [facility] [place] BMI Calculated 2021-11-02 20:14:00 [facility] [place] Systolic (mm Hg) 2020-12-24 18:59:00 Jose Francisco rial [place] Diastolic (mm Hg) 2020-12-24 18:59:00 Mem o[facility] Heart Rate 2020-12-24 18:59:00 [facility] [place] Respitory Rate 2020-12-24 18:59:00 Memori [facility] Height 2020-12-24 18:59:00 149.86 cm [facility] Weight 2020-12-24 18:59:00 [facility] [place] BMI Calculated 2020-12-24 18:59:00 [facility] [place] Systolic (mm Hg) 2020-09-06 20:47:00 Jose Francisco rial [facility] Diastolic (mm Hg) 2020-09-06 20:47:00 Mem [facility] Temperature Oral (F) 2020-09-06 18:26:00 99.7 F [facility] Heart Rate 2020-09-06 18:26:00 [facility] Respitory Rate 2020-09-06 18:26:00 [facility] [place] Systolic (mm Hg) 2020-09-06 18:26:00 Jose Francisco rial [place] Diastolic (mm Hg) 2020-09-06 18:26:00 Mem o[facility] Temperature Oral (F) 2020-09-06 14:09:00 98.1 F [facility] Heart Rate 2020-09-06 14:09:00 [facility] Respitory Rate 2020-09-06 14:09:00 [facility] Systolic (mm Hg) 2020-09-06 14:09:00 Jose Francisco rial [facility] Diastolic (mm Hg) 2020-09-06 14:09:00 Mem [facility] Temperature Oral (F) 2020-09-06 10:00:00 98.1 F [facility] Heart Rate 2020-09-06 10:00:00 [facility] [place] Respitory Rate 2020-09-06 10:00:00 [facility] [place] Temperature Oral (F) 2020-09-06 06:30:00 97.5 F [facility] [place] Heart Rate 2020-09-06 06:30:00 [facility] Respitory Rate 2020-09-06 06:30:00 [facility] [place] Systolic (mm Hg) 2020-09-06 06:30:00 Jose Francisco rial [facility] Diastolic (mm Hg) 2020-09-06 06:30:00 Mem o[facility] [place] Temperature Oral (F) 2020-09-06 02:45:00 97.8 F [facility] [place] Heart Rate 2020-09-06 02:45:00 [facility] Respitory Rate 2020-09-06 02:45:00 [facility] Systolic (mm Hg) 2020-09-06 02:45:00 Jose Francisco rial [place] Diastolic (mm Hg) 2020-09-06 02:45:00 Mem o[facility] Temperature Oral (F) 2020-09-05 22:00:00 97 F [facility] Heart Rate 2020-09-05 22:00:00 [facility] Respitory Rate 2020-09-05 22:00:00 [facility] Systolic (mm Hg) 2020-09-05 22:00:00 Jose Francisco rial [place] Diastolic (mm Hg) 2020-09-05 22:00:00 Mem [facility] Height 2020-09-05 02:46:00 124.46 cm [facility] BMI Calculated 2020-09-05 02:46:00 [facility] Weight 2020-09-05 02:46:00 [facility] [place] Systolic (mm Hg) 2020-05-25 18:41:00 Jose Francisco rial [place] Diastolic (mm Hg) 2020-05-25 18:41:00 Mem o[facility] [place] Heart Rate 2020-05-25 18:41:00 [facility] [place] Respitory Rate 2020-05-25 18:41:00 [facility] [place] Temperature Oral (F) 2020-05-25 18:41:00 98.6 F [facility] [place] Height 2020-05-25 18:41:00 149.86 cm [facility] Weight 2020-05-25 18:41:00 [facility] BMI Calculated 2020-05-25 18:41:00 [facility] [place] Systolic (mm Hg) 2020-03-24 14:12:00 Jose Francisco rial [facility] Diastolic (mm Hg) 2020-03-24 14:12:00 Mem o[facility] Heart Rate 2020-03-24 14:12:00 [facility] Height 2020-03-24 14:12:00 149.86 cm [facility] [place] Weight 2020-03-24 14:12:00 [facility] [place] BMI Calculated 2020-03-24 14:12:00 [facility] Systolic (mm Hg) 2019-07-24 19:29:00 Jose Francisco rial [place] Diastolic (mm Hg) 2019-07-24 19:29:00 Mem o[facility] Heart Rate 2019-07-24 19:29:00 [facility] [place] Respitory Rate 2019-07-24 19:29:00 [facility] [place] Height 2019-07-24 19:29:00 149.86 cm [facility] [place] Weight 2019-07-24 19:29:00 [facility] [place] BMI Calculated 2019-07-24 19:29:00 [facility] Systolic (mm Hg) 2019-05-21 19:25:00 Jose Francisco rial [facility] Diastolic (mm Hg) 2019-05-21 19:25:00 Mem o[facility] Heart Rate 2019-05-21 19:25:00 [facility] Respitory Rate 2019-05-21 19:25:00 [facility] [place] Height 2019-05-21 19:25:00 149.86 cm [facility] Weight 2019-05-21 19:25:00 [facility] [place] BMI Calculated 2019-05-21 19:25:00 [facility] Height 2019-03-21 19:45:00 147.32 cm [facility] [place] Weight 2019-03-21 19:45:00 [facility] BMI Calculated 2019-03-21 19:45:00 [facility] [place] Respitory Rate 2019-03-21 19:45:00 [facility] [place] Heart Rate 2019-03-21 19:45:00 [facility] [place] Systolic (mm Hg) 2019-03-21 19:45:00 Jose Francisco rial [facility] Diastolic (mm Hg) 2019-03-21 19:45:00 Mem o[facility] Height 2019-02-21 20:01:00 149.86 cm [facility] Weight 2019-02-21 20:01:00 [facility] [place] BMI Calculated 2019-02-21 20:01:00 [facility] [place] Respitory Rate 2019-02-21 20:01:00 [facility] Heart Rate 2019-02-21 20:01:00 [facility] [place] Systolic (mm Hg) 2019-02-21 20:01:00 Jose Francisco rial [facility] Diastolic (mm Hg) 2019-02-21 20:01:00 Mem [facility] Procedures Procedure Date / Time Performing Clinician Source Performed AUTHORIZATION FOR 2022-11-22 06:01:00 Doctor Unassigned, No Univ [facility] RELEASE OF PHI Name Medical Branch XR CHEST 1 VW 2022-08-05 17:51:10 Carly Sinclair [facility] TROPONIN I 2022-08-05 17:31:00 Carly Sinclair [facility] COMP. METABOLIC PANEL 2022-08-05 17:31:00 Carly Sinclair [facility] ([id number]) [facility] CBC WITH DIFF 2022-08-05 17:31:00 Carly Sinclair [facility] RAPID INFLUENZA A/B 2022-08-05 17:31:00 Carly Sinclair [facility] N-TERMINAL PRO-BNP 2022-08-05 17:31:00 Carly Sinclair [facility] sity [facility] COVID-19 (ID NOW RAPID 2022-08-05 17:31:00 Carly Sinclair Un [facility] TESTING) [facility] Branch CONSENT/REFUSAL FOR 2022-08-05 17:11:04 [facility] Name Medical Branch XR FOREARM 2 VW RIGHT 2020-06-28 17:49:[address] [facility] XR SHOULDER 2+ VW RIGHT 2020-06-28 17:49:[address] [facility] CONSENT/REFUSAL FOR 2020-02-19 18:58:01 Doctor Unassigned, No Un [facility] DIAGNOSIS AND TREATMENT Name Medical Branch XR TIBIA FIBULA 2 VW 2019-12-10 03:20:47 Timi Aguirre [facility] Encounters Start End Encounter Admission Attending Care Care Encounter Source Date/Time Date/Time Type Type Clinicians Facility Department ID 2023-04-30 Outpatient STLMLC STLMLC [id number] Common 12:50:00 [id number] [facility] 2023-03-13 Outpatient [facility] [id number] [place] 09:56:10 [id number] [facility] 2022-11-28 Outpatient [facility] [id number] [place] 08:22:57 [id number] [facility] 2022-11-23 Outpatient [facility] [id number] [place] 15:23:09 [id number] [facility] 2022-11-13 Outpatient STLMLC STLMLC [id number] Common 13:04:00 [id number] [facility] 2022-11-09 Outpatient STLMLC STLMLC [id number] Common 12:35:00 [id number] [facility] 2022-07-26 Outpatient STLMLC STLMLC [id number] Common 16:10:00 [id number] [facility] 2022-06-16 Outpatient STLMLC STLMLC [id number] Common 09:53:02 [id number] [facility] 2021-10-26 Outpatient STLMLC STLMLC [id number] Common 13:00:46 [id number] [facility] 2021-10-26 Outpatient STLMLC STLMLC [id number] Common 12:25:20 [id number] [facility] 2021-10-26 Outpatient STLMLC STLMLC [id number] Common 12:16:59 [id number] [facility] 2021-10-05 Inpatient EL Pepper, HCAWU ADMI [id number] [facility] 11:00:[address] [facility] 2021-07-29 Emergency [facility] [id number] Univers 19:46:17 ity [facility] 2021-07-28 Emergency [facility] [id number] Univers 21:53:33 ity [facility] 2023-07-30 2023-07-30 Outpatient Deavers_C DMG [facility] [id number] -[id number] Devoted 00:00:00 00:00:00 1030 Medica l Group 2023-07-12 2023-07-20 Inpatient [facility] [id number] Memoria 06:50:31 23:29:[address] 2023-07-12 2023-07-20 Outpatient Mirtha [facility] [id number] 01:50:31 18:29:00 [place] 2023-07-12 2023-07-12 Outpatient Mir Lee [facility] [id number] 01:50:31 01:50:31 Najlaa 2023-06-06 2023-06-06 Outpatient GC_GCBZW_Ka PRIV PRIV [id number] [facility] 00:00:00 00:00:00 diyala_S [id number] Medic al 2023-05-15 2023-05-15 Palliative Glenys 2.16.840. 2.16.840.1. C LACXSUHJY [facility] 18:00:00 19:00:00 Care MICROBIOLOGICAL ANALYST/MD Claros [id number]. [id number]. [facility] Medical Follow Up [id number] 2023-04-30 2023-04-30 Outpatient GC_GCBZW_Ka PRIV PRIV [id number] [facility] 00:00:00 00:00:00 diyala_S [id number] Medic al 2023-04-30 2023-04-30 Outpatient GC_GCBZW_Ka PRIV PRIV [id number] [facility] 00:00:00 00:00:00 diyala_S [id number] Medic al 2023-04-30 2023-04-30 Outpatient GC_GCBZW_Ka PRIV PRIV [id number] [facility] 00:00:00 00:00:00 diyala_S [id number] Medic al 2023-04-25 2023-04-25 Outpatient GC_GCBZW_Ka PRIV PRIV [id number] [facility] 00:00:00 00:00:00 diyala_S [id number] Medic al 2023-04-25 2023-04-25 Outpatient GC_GCBZW_Ka PRIV PRIV [id number] [facility] 00:00:00 00:00:00 diyala_S [id number] Medic al 2023-04-25 2023-04-25 Outpatient GC_GCBZW_Ka PRIV PRIV [id number] [facility] 00:00:00 00:00:00 diyala_S [id number] Medic al 2023-04-18 2023-04-18 Outpatient GC_GCBZW_Ka PRIV PRIV [id number] [facility] 00:00:00 00:00:00 diyala_S [id number] Medic al 2023-03-14 2023-03-14 Care Glenys 2.16.840. 2.16.840.1. CLAC [id number] [facility] 21:00:00 21:15:00 Coordinati Foster [id number]. [id number]. R6K Medical on Non [id number] Billable [id number] 2023-02-22 2023-02-22 Palliative Glenys 2.16.840. 2.16.840.1. C [id number] [facility] 17:30:00 18:30:00 Care Foster 1.625554. [id number]. GFE Medical Follow Up 4.6.87516 [id number] 2023-02-14 2023-02-14 Outpatient NIC Maria E, HCAWU SUGL [id number] [facility] 08:00:00 09:00:[address] [facility] 2023-02-08 2023-02-08 [place] [id number] [facility] 00:00:00 00:00:00 0511 Medica l Group 2023-02-08 2023-02-08 Outpatient Deavers_C DMG DMG [id number] [facility] 00:00:00 00:00:00 0626 Medica l Group 2023-01-31 2023-01-31 ESTRELLA Cuellar 2.16.840. 2.16.840.1. MESFIN [id number] [facility] 19:00:00 20:00:00 Deavers [id number]. [id number]. WF9 [place] [id number] 2023-01-22 2023-01-22 Outpatient Deavers_C [facility] [id number] [facility] 00:00:00 00:00:00 0506 Medica l Group 2023-01-22 2023-01-22 Outpatient Deavers_C [facility] [id number] [facility] 00:00:00 00:00:00 0424 Medica l Group 2022-11-27 2022-11-29 Inpatient [facility] [id number] Memoria 05:48:00 21:37:00 [place] 57 [facility] 2022-11-26 2022-11-[address] [facility] [id number] 23:48:00 15:37:00 [place] [id number] 2022-11-26 2022-11-[address] [facility] [id number] 23:48:00 15:37:00 [place] [id number] 2022-11-21 2022-11-22 Observatio [facility] [id number] Memoria 10:09:00 20:23:00 [facility] 00 [facility] 2022-11-21 2022-11-22 Outpatient [facility] [id number] 04:09:00 14:23:00 Ashish Seiji 2022-11-21 2022-11-22 Outpatient [facility] [id number] 04:09:00 14:23:00 Ashish Seiji 00 2022-11-22 2022-11-22 Orders Doctor STEFANO 1.2.840.114 [id number] Univers 00:00:00 00:00:00 Only Unassigned, TRU 350.1.13.10 ity of [place] [facility] 4.2.7.2.686 Carlos as [id number] [facility] 009 Branch 2022-11-22 2022-11-22 (TEL) STLC STLC [id number] Co mmon 00:00:00 00:00:00 [facility] 2022-11-13 2022-11-13 OFFICE STLMLC STLMLC [id number] Co mmon 00:00:00 00:00:00 VISIT [facility] LEVEL 4 [facility] 2022-11-01 2022-11-01 (TEL) STLMLC STLC [id number] Co mmon 00:00:00 00:00:00 [facility] 2022-09-29 2022-09-29 Inpatient JAMIE Anderson [id number] [facility] 11:00:00 11:00:[address] [facility] 2022-09-13 2022-09-13 CAV Allegra 2.16.840. 2.16.840.1. CLAC [id number] [facility] 20:30:00 21:00:00 Revisit: Valentín [id number]. [id number]. [id number] Medical Gap 4.6.80770 [id number] Closure & 28045 Clinical Check-in 2022-09-05 2022-09-05 (TEL) [facility] STLC [id number] Co mmon 00:00:00 00:00:00 [facility] 2022-08-05 2022-08-05 [id number] Univers 12:20:00 15:34:00 CARLY dominique [facility] 2022-08-05 2022-08-05 [facility] 1.2.840.114 [id number] Univers 12:20:00 15:34:00 Carly AMIN 350.1.13.10 trip molina [place] 4.2.7.2.686 [facility] [id number] [facility] 084 Branch 2022-08-03 2022-08-03 Outpatient Canales_M DMG DMG [id number] [facility] 00:00:00 00:00:00 1103 Medica l Group 2022-07-27 2022-07-27 OFFICE STLMLC STLMLC [id number] Co mmon 00:00:00 00:00:00 VISIT [facility] PT - [facility]I LEVEL 4 [facility] 2022-06-15 2022-06-15 OFFICE STLMLC STLMLC [id number] Co mmon 00:00:00 00:00:00 VISIT [facility] PT - [facility]I LEVEL 4 [facility] 2022-06-12 2022-06-12 CAV Allegra 2.16.840. 2.16.840.1. CLAC [id number] [facility] 20:00:00 21:00:00 Valentín 1.218211. [id number]. FE5 [facility] 4.6.17051 [id number] 2022-04-28 2022-04-28 Ambulatory nullFlavo MNA [id number] Memoria 19:00:00 19:00:00 Pre-Reg r Neurology 14 l Lana Carter 2022-04-28 2022-04-28 Outpatient MHIE FRANCESCO [id number] Memoria 14:00:00 14:00:00 14 l Raul 2022-04-28 2022-04-28 Outpatient Jose MISCHER MISCHER [id number] 14:00:00 14:00:00 Jeffrey 14 Hollis 2022-04-14 2022-04-14 Outpatient Canales_M DMG DMG [id number] [facility] 07:15:00 07:15:00 0715 Medica l Group 2021-12-15 2021-12-15 (TEL) STLMLC STLMLC [id number] Co mmon 00:00:00 00:00:00 [facility] 2021-12-08 2021-12-08 (TEL) STLMLC STLMLC [id number] Co mmon 00:00:00 00:00:00 [facility] 2021-11-29 2021-11-29 OL DIG E/M STLMLC STLMLC [id number] Common 00:00:00 00:00:00 SVC 5-10 Spiri t MIN [facility] 2021-11-21 2021-11-21 (TEL) STLMLC STLMLC [id number] Co mmon 00:00:00 00:00:00 Spirit - [facility] 2021-11-02 2021-11-03 Outpatient nullFlavo MNA [id number] Memoria 19:30:00 05:59:59 r Neurology 13 l Lana Cunhaann 2021-11-02 2021-11-02 Outpatient Jose, MISCHER MISCHER [id number] 13:30:00 23:59:59 Jeffrey 13 Hollis 2021-11-02 2021-11-02 Ambulatory nullFlavo MNA [id number] Memoria 19:00:00 19:00:00 Pre-Reg r Neurology 12 l Lana [place] 2021-11-02 2021-11-02 Outpatient MHIE MHIE [id number] Memoria 13:30:00 13:30:00 13 lavelle [place] 2021-11-02 2021-11-02 Outpatient MHIE MHIE [id number] Memoria 13:00:00 13:00:00 12 lavelle [place] 2021-11-02 2021-11-02 [facility] [id number] 13:00:00 13:00:00 Jeffrey 12 [place] 2021-10-26 2021-10-26 (TEL) STLMLC STLMLC [id number] Co mmon 00:00:00 00:00:00 [facility] 2021-10-17 2021-10-17 OFFICE STLMLC STLMLC [id number] Co mmon 00:00:00 00:00:00 VISIT [facility] PT - CHI LEVEL 4 [facility] 2021-10-03 2021-10-03 CAV Allegra 2.16.840. 2.16.840.1. CLAC [id number] [facility] 20:00:00 21:30:00 Valentín [id number]. [id number]. [facility] [id number] 2021-08-29 2021-08-29 Out[place] [id number] [facility] 12:42:00 12:42:00 1129 Medica l Group 2021-06-28 2021-06-28 Ambulatory nullFlavo MNA [id number] Memoria 19:00:00 19:00:00 Pre-Reg r Neurology 11 l Lana Carter 2021-06-28 2021-06-28 Outpatient MHIE MHIE [id number] Memoria 14:00:00 14:00:00 11 l Raul 2021-06-28 2021-06-28 Outpatient Jose MHMISCHER MHMISCHER [id number] 14:00:00 14:00:00 Jeffreyfrancisco Shafer 2021-05-16 2021-05-16 Outpatient STLMLC STLMLC [id number] Common 00:00:00 00:00:00 [facility] 2021-05-10 2021-05-10 Outpatient STLMLC STLMLC [id number] Common 00:00:00 00:00:00 [facility] 2021-04-12 2021-04-12 Outpatient STLMLC STLMLC [id number] Common 00:00:00 00:00:00 [facility] 2021-03-28 2021-03-28 Outpatient Olivia-Mbayo VFP VFP [id number] [facility] 05:32:00 05:32:00 _A_AH [id number] Family Practic e 2021-03-28 2021-03-28 (TEL) STLMLC STLMLC [id number] Co mmon 00:00:00 00:00:00 [facility] 2021-03-07 2021-03-07 Outpatient STLMLC STLMLC [id number] Common 00:00:00 00:00:00 [facility] 2021-02-08 2021-02-08 Outpatient STLMLC STLMLC [id number] Common 00:00:00 00:00:00 [facility] 2021-01-28 2021-01-30 Outside nullFlavo MNA [id number] Memoria 14:05:24 04:59:59 Medical r Neurology 01 l Records Lana Carter 2021-01-28 2021-01-29 Outpatient MHMISCHER MHMISCHER [id number] 09:05:24 23:59:59 01 2021-01-18 2021-01-18 Outpatient Olivia-Echoo VFP [facility] [id number] [facility]-202 [facility] 01:43:00 01:43:00 _A_AH [id number] Family Practic e 2021-01-14 2021-01-14 Outpatient Canales_M DMG [facility] [id number] [facility] 05:20:00 05:20:00 0416 Medica l Group 2021-01-14 2021-01-14 Caitlyn BAEZA MA - [id number] D evoted 00:00:00 00:00:00 Radha Choudhurya l Jerez, Health Group MICROBIOLOGICAL ANALYST: [id number] [facility] [address], [place] [address] , Ph. 2021-01-14 2021-01-14 Outpatient Jerez, SHIRA SHIRA [id number] 00:00:00 00:00:00 Caitlyn [id number] Radha [id number] 2021-01-13 2021-01-13 Outpatient Canales_M [facility] [place] [id number] -2020 [facility] 05:35:00 05:35:00 0415 Medica l Group 2021-01-12 2021-01-12 Outpatient Canales_M [facility] [place] [id number] -2020 [facility] 04:16:00 04:16:00 0414 Medica l Group 2020-12-24 2020-12-25 Outpatient nullFlavo MNA [id number] Mem[facility] 18:45:00 04:59:59 r Neurology 10 l Lana Carter 2020-12-24 2020-12-24 Outpatient PRUDENCIO GarciaMISCHER MHMISCHER [id number] 13:45:00 23:59:59 Jeffrey 10 Hollis 2020-12-24 2020-12-24 Outpatient FRANCESCO MAYA [id number] Memoria 13:45:00 13:45:00 10 l Raul 2020-12-09 2020-12-09 Outpatient STLMLC STLMLC [id number] Common 00:00:00 00:00:00 [facility] 2020-12-09 2020-12-09 Outpatient STLMLC STLMLC [id number] Common 00:00:00 00:00:00 [facility] 2020-11-30 2020-11-30 Outpatient STLMLC STLMLC [id number] Common 00:00:00 00:00:00 [facility] 2020-11-23 2020-11-25 Outside nullFlavo MNA [id number] Memoria 17:49:36 05:59:59 Medical r Neurology 00 l Records [facility] 2020-11-23 2020-11-24 Outpatient MHMISCHER MHMISCHER [id number] 11:49:36 23:59:59 00 2020-10-28 2020-10-28 Outpatient STLMLC STLMLC [id number] Common 00:00:00 00:00:00 [facility] 2020-10-25 2020-10-25 Outpatient STLMLC STLMLC [id number] Common 00:00:00 00:00:00 [facility] 2020-10-11 2020-10-11 Ambulatory nullFlavo MNA [id number] Memoria 21:15:00 21:15:00 Pre-Reg r Neurology 09 l [facility] 2020-10-11 2020-10-11 Outpatient MHIE MHIE [id number] Memoria 15:15:00 15:15:00 09 l [place] 2020-10-11 2020-10-11 Outpatient PRUDENCIO GarciaMISCHER MHMISCHER [id number] 15:15:00 15:15:00 Jeffrey 09 [place] 2020-09-29 2020-09-29 Outpatient STLMLC STLMLC [id number] Common 00:00:00 00:00:00 [facility] 2020-09-05 2020-09-06 Observatio nullFlavo [facility] [id number] Memoria 02:36:00 21:43:00 sherif Carter 40 [facility] 2020-09-04 2020-09-06 Outpatient Nae [facility] [id number] 20:36:00 15:43:00 Vincent Sage 2020-09-04 2020-09-04 Outpatient Nae [facility] [id number] 20:36:00 20:36:00 Vincent Sage 2020-08-24 2020-08-24 Ambulatory nullFlavo MNA [id number] Memoria 19:15:00 19:15:00 Pre-Reg r Neurology 08 l Lana Carter 2020-08-24 2020-08-24 Outpatient MHIE MHIE [id number] Memoria 13:15:00 13:15:00 08 lavelle Raul 2020-08-24 2020-08-24 Outpatient YURIDIA Garcia SAMSCHER [id number] 13:15:00 13:15:00 Jeffrey 08 [facility] 2020-06-28 2020-06-28 Emergency [place], [facility] [id number] [facility] 11:51:00 15:02:00 Sariah Aguirre [place] [id number] i ty of Jean 4.2.7.2.686 [facility] [id number] [facility] [address] [place] [address] 2020-06-28 2020-06-28 Emergency [place], [facility] [id number] 11:51:00 15:02:00 Sariah S [place] [id number] Jean [id number] [employer] [id number] [facility] 2020-05-25 2020-05-26 Outpatient nullFlavo MNA [id number] Memoria 18:45:00 04:59:59 r Neurology 07 l Lana Raul 2020-05-25 2020-05-25 Outpatient [id number] 13:45:00 23:59:59 Jeffrey 07 [place] 2020-05-25 2020-05-25 Outpatient MHIE MHIE [id number] Memoria 13:45:00 13:45:00 07 lavelle [place] 2020-03-30 2020-03-30 Ambulatory nullFlavo MNA [id number] Memoria 20:15:00 20:15:00 Pre-Reg r Neurology 05 lavelle Schwartz Raul 2020-03-30 2020-03-30 Outpatient MHIE MHIE [id number] Memoria 15:15:00 15:15:00 05 lavelle [place] 2020-03-30 2020-03-30 Outpatient GOSIA GarciaSCHER PRUDENCIOMISCHER [id number] 15:15:00 15:15:00 Jeffrey 05 [place] 2020-03-24 2020-03-25 Outpatient nullFlavo MNA [id number] Memoria 14:00:00 04:59:59 r Neurology 06 l Lana Cunhaann 2020-03-24 2020-03-24 Outpatient GOSIA GarciaSCHER GOSIASCHANJEL [id number] 09:00:00 23:59:59 Jeffrey 06 [place] 2020-03-24 2020-03-24 Outpatient MHIE PRUDENCIOIE [id number] Memoria 09:00:00 09:00:00 06 l [place] 2020-02-19 2020-02-19 Emergency [facility] [id number] [facility] 14:18:56 16:04:00 Maria Luisa Amin [id number] ity of Jean [id number] [place] [id number] 2020-02-19 2020-02-19 Emergency [facility] [id number] 14:18:56 16:04:00 Maria Luisa Amin [id number] [place] [address] [id number] [facility] 2019-12-11 2019-12-11 Outpatient Olivia-Mbayo VFP [facility] [address] [place] [address] 06:48:00 06:48:00 _A_AH [id number] Family Practic e 2019-12-11 2019-12-11 Outpatient Olivia-Mbayo [facility]FP [facility] [id number] 06:48:00 06:48:00 _A_AH [id number] Family Practic e 2019-12-09 2019-12-10 Emergency [facility] [id number] 21:28:34 00:05:00 Timi Amin [id number] [place] [address] [id number] [facility] 2019-12-09 2019-12-[id number] [facility] 21:28:34 00:05:00 Timi [place] 350.1.13.10 i ty of Jean [id number] [place] [id number] 2019-12-09 2019-12-10 Emergency X [place], [facility] ERT [id number] 21:28:34 00:05:00 TIMI dominique [facility] 2019-11-19 2019-11-19 Outpatient Olivia-Molly [facility]FP [facility] [id number] [facility] 07:16:00 07:16:00 _A_ [id number] Family Practic e 2019-09-16 2019-09-16 Ambulatory nullFlavo MNA [id number] Memoria 21:00:00 21:00:00 Pre-Reg r Neurology 04 l Lana Carter 2019-09-16 2019-09-16 Outpatient MHIE MHIE [id number] Memoria 15:00:00 15:00:00 04 lavelle Carter 2019-09-16 2019-09-16 Outpatient PRUDENCIO GarciaMISCHER MHMISCHER [id number] 15:00:00 15:00:00 Jeffrey 04 [place] 2019-07-24 2019-07-25 Outpatient nullFlavo MNA [id number] Memoria 19:15:00 04:59:59 r Neurology 03 lavelle Carter 2019-07-24 2019-07-24 Outpatient PRUDENCIO GarciaMISCHER MHMISCHER [id number] 14:15:00 23:59:59 Jeffrey 03 [place] 2019-07-24 2019-07-24 Outpatient MHIE MHIE [id number] Memoria 14:15:00 14:15:00 03 lavelle Carter 2019-05-21 2019-05-22 Outpatient nullFlavo MNA [id number] Memoria 19:30:00 04:59:59 r Neurology 02 lavelle Carter 2019-05-21 2019-05-21 Outpatient PRUDENCIO GarciaMISCHER MHMISCHER [id number] 14:30:00 23:59:59 Jeffrey 02 [place] 2019-05-21 2019-05-21 Outpatient MHIE MHIE [id number] Memoria 14:30:00 14:30:00 02 lavelle Carter 2019-03-21 2019-03-22 Outpatient nullFlavo MNA [id number] Memoria 19:30:00 04:59:59 r Neurology 01 lavelle Carter 2019-03-21 2019-03-21 Outpatient PRUDENCIO GarciaMISCHER MHMISCHER [id number] 14:30:00 23:59:59 Jeffrey 01 [place] 2019-03-21 2019-03-21 Outpatient FRANCESCO MAYA [id number] Memoria 14:30:00 14:30:00 01 lavelle [place] 2019-02-21 2019-02-22 Outpatient Mary HENDRICKSON [id number] Memoria 20:00:00 04:59:59 r Neurology 00 l Lana [place] 2019-02-21 2019-02-21 Out[id number] 15:00:00 23:59:59 Jeffrey 00 [place] Results Test Description Test Time Test Comments Results Result Comments Source POINT OF CARE 2023-07-20 21:15:00 Test Item Value Reference Range Interpretation Comme nts Glucose POC (test code = Glucose POC) 149 70-99 [facility]2023-10-20 21:15:00 Test Item Value Reference Range Interpretation Comments Gluc POC Comment 1 (test code Notified RN/MD = Gluc POC Comment 1) [place] 06576023-10-20 14:29:40 Test Item Value Reference Range Interpretation Comments RADRPT (test code PROCEDURE INFORMATION: Exam: = RADRPT) XR Chest Exam date and time: 07/20/2023 8:41 AM Age: 82 years old Clinical indication: /increased hypoxia TECHNIQUE: Imaging protocol: Radiologic exam of the chest. Views: 1 view. COMPARISON: CHEST 1V FOR PLACEMENT DX NO 07/19/2023 3:01 AM FINDINGS: Tubes, catheters and devices: Right upper extremity PICC line terminates at the cavoatrial junction. EKG leads overlying the chest. Partially imaged left shoulder arthroplasty. Lungs: Bibasilar platelike opacities. Pulmonary vasculature is within normal limits.Pleural spaces: Unremarkable. No pleural effusion. No pneumothorax. Heart/Mediastinum: Stable appearance of the cardiomediastinal silhouette. Diaphragm: Chronic elevation of the right hemidiaphragm. Bones/joints: No acute osseous abnormalities. IMPRESSION: Bibasilar airspace opacities, likely representing subsegmental atelectasis. Matthias Marques MD On 07/20/2023 09:29:05; [id number] [facility] CampusMlggwjcKZQZLPKKZ8528-91-89 10:17:00 Test Item Value Reference Range Interpretation Comments Glucose Lvl (test code = Glucose Lvl) 135 70-99 [facility]0063[facility]32-71 10:17:00 Test Item Value Reference Range Interpretation Comments BUN (test code = BUN) 27 7-22 [facility] CampusItvyjbhAXRPWWHOG6911-28-06 10:17:00 Test Item Value Reference Range Interpretation Comments Creatinine Lvl (test code = Creatinine 2.08 0.50-1.40 Lvl) [facility] CampusVeiyrkkMJNXAHYBT2162-17-32 10:17:00 Test Item Value Reference Range Interpretation Comments Sodium Lvl (test code = Sodium Lvl) 140 135-145 [facility] CampusBbybengBKZYCMAQY8895-72-05 10:17:00 Test Item Value Reference Range Interpretation Comments Potassium Lvl (test code = Potassium 4.2 3.5-5.1 Lvl) [facility] CampusSvrqsxbCYCMUJMQO1392-46-54 10:17:00 Test Item Value Reference Range Interpretation Comments Chloride Lvl (test code = Chloride Lvl) 100 95-109 [facility] CampusEdtiawkEGWMTZZIN3558-33-32 10:17:00 Test Item Value Reference Range Interpretation Comments CO2 (test code = CO2) 32 24-32 [facility] CampusRweedffYGKZFWMBB6182-90-39 10:17:00 Test Item Value Reference Range Interpretation Comments Calcium Lvl (test code = Calcium Lvl) 8.5 8.5-10.5 [facility] CampusNwirpciKXEMNJKUH9346-16-13 10:17:00 Test Item Value Reference Range Interpretation Comments AGAP (test code = AGAP) 12.2 10.0-20.0 [facility] CampusRxxeniaTCNUIHBIU2189-57-61 10:17:00 Test Item Value Reference Range Interpretation Comments eGFR (test code = eGFR) 24 [facility] CampusFgnqarlGZILAOZVG3843-66-02 10:17:00 Test Item Value Reference Range Interpretation Comments Magnesium Lvl (test code = Magnesium 2.2 1.8-2.4 Lvl) [facility] CampusEungulpYWYUHUAWT5060-55-64 10:17:00 Test Item Value Reference Range Interpretation Comments Phosphorus (test code = Phosphorus) 4.1 2.5-4.5 [facility] CampusCylgwmmSDIYYMVBC3673-31-27 10:17:00 Test Item Value Reference Range Interpretation Comments Digoxin Lvl (test code = Digoxin Lvl) 2.1 0.8-2.0 [facility] HospitalSuaoohhOPUKVXXDQB5423-01-81 10:17:00 Test Item Value Reference Range Interpretation Comments RBC Morph (test code = Normal (07/20/23 5:17 RBC Morph) AM) [facility]KyzsgrmLTIRFJHVEK9929-50-61 10:17:00 Test Item Value Reference Range Interpretation Comments Plt Morph (test code = Normal (07/20/23 5:17 Plt Morph) AM) [facility] TylerNfshvozCLLBHOUBTM7808-18-10 10:17:00 Test Item Value Reference Range Interpretation Comments Segs (test code = Segs) 64.5 45.0-75.0 [place] 685143-10-20 10:17:00 Test Item Value Reference Range Interpretation Comments Lymphocytes (test code = Lymphocytes) 22.2 20.0-40.0 [place] 685143-10-20 10:17:00 Test Item Value Reference Range Interpretation Comments Monocytes (test code = Monocytes) 9.7 2.0-12.0 [place] 685143-10-20 10:17:00 Test Item Value Reference Range Interpretation Comments Eosinophils (test code = Eosinophils) 3.1 <=4.0 [facility] TylerRddqqlqSRWFKEFYLS9035-84-95 10:17:00 Test Item Value Reference Range Interpretation Comments Basophils (test code = Basophils) 0.5 <=1.0 [facility] TylerQrmzlbqBKUQPTOMAP2415-83-74 10:17:00 Test Item Value Reference Range Interpretation Comments Neutrophils # (test code = Neutrophils 6.3 1.5-8.1 #) [facility] TylerStmcowrIQYWIZWJQG4669-07-38 10:17:00 Test Item Value Reference Range Interpretation Comments Lymphocytes # (test code = Lymphocytes 2.2 1.0-5.5 #) [facility] TylerLevpfurWBJBPOYPIF0026-47-89 10:17:00 Test Item Value Reference Range Interpretation Comments Monocytes # (test code = Monocytes #) 0.9 <=0.8 [place] [address]-10-20 10:17:00 Test Item Value Reference Range Interpretation Comments Eosinophils # (test code = Eosinophils 0.3 <=0.5 #) [place] [address]-10-20 10:17:00 Test Item Value Reference Range Interpretation Comments Basophils # (test code = Basophils #) 0.1 <=0.2 [place] [address]-10-20 10:17:00 Test Item Value Reference Range Interpretation Comments WBC (test code = WBC) 9.7 3.7-10.4 [facility] TylerIaqmwhzHIHANCVGIN8166-06-57 10:17:00 Test Item Value Reference Range Interpretation Comments RBC (test code = RBC) 3.83 4.20-5.40 [facility] TylerYytvphrEMDBPHXGAC6073-35-84 10:17:00 Test Item Value Reference Range Interpretation Comments Hgb (test code = Hgb) 10.3 12.0-16.0 [facility] TylerAbegtjtLQLGDLWKIU1328-06-14 10:17:00 Test Item Value Reference Range Interpretation Comments Hct (test code = Hct) 32.5 36.0-48.0 [facility] TylerJpgnakyIJKDEJHGTX2320-91-55 10:17:00 Test Item Value Reference Range Interpretation Comments MCV (test code = MCV) 84.8 80.0-98.0 [facility] TylerOpkvoyoWUSCIARGHH4534-66-19 10:17:00 Test Item Value Reference Range Interpretation Comments MCH (test code = MCH) 27.0 pg 27.0-31.0 [facility] TylerBjzfvsiCRVRUVTXQS7011-68-31 10:17:00 Test Item Value Reference Range Interpretation Comments MCHC (test code = MCHC) 31.8 32.0-36.0 [facility] TylerQpuodltSDUBBWMNXI2759-88-36 10:17:00 Test Item Value Reference Range Interpretation Comments RDW (test code = RDW) 16.4 11.5-14.5 [facility] TylerQyktrsbOJJPTDBNYX0869-89-90 10:17:00 Test Item Value Reference Range Interpretation Comments Platelet (test code = Platelet) 268 133-450 [facility] TylerBelwsjbFXQKOVYIDJ3263-89-91 10:17:00 Test Item Value Reference Range Interpretation Comments MPV (test code = MPV) 7.5 7.4-10.4 [facility] SystemQjcclagEBUJHN8815-84-30 08:53:53 Test Item Value Reference Range Interpretation Comments RADRPT (test code = PROCEDURE INFORMATION: RADRPT) Exam: XR Chest Exam date and time: 07/19/2023 3:01 AM Age: 82 years old Clinical indication: Device placement; Picc; Additional info: Line placement/chest 1 view for line placement TECHNIQUE: Imaging protocol: Radiologic exam of the chest. Views: 1 view. COMPARISON: CHEST WO CONTRAST CT 07/12/2023 6:29 AM FINDINGS: Tubes, catheters and devices: Right PICC tip is near the cavoatrial junction. Lungs: Lung volumes are low. No confluent consolidation identified. Reticular bibasilar opacities are identified. Pleural spaces: No large pleural effusion or pneumothorax Heart/Mediastinum: Heart is mildly enlarged. Mediastinum pulmonary vessels are within normal limits. Bones/joints: No acute osseous findings. IMPRESSION: Right PICC tip is near the cavoatrial junction. New line low lung volumes and mild bibasilar atelectasis.Hollis Cosme MD On 07/19/2023 03:52:53; [id number] [facility] HospitalCfwwitcOGIHXWTLYP8306-79-42 00:53:00 Test Item Value Reference Range Interpretation Comments PT (test code = PT) 14.6 s 12.0-14.7 [facility] HospitalWncgtgzQQSATSEXGF1200-92-46 00:53:00 Test Item Value Reference Range Interpretation Comments INR (test code = INR) 1.14 1 0.85-1.17 [facility]zsbxwjYCTVDKEHV8715-97-97 09:16:00 Test Item Value Reference Range Interpretation Comments Vancomycin AUC (test code = Vancomycin 22.9 AUC) [facility] System[facility]: Lcmsy1008-51-26 20:59:00 Test Item Value Reference Range Interpretation Comments Culture: Blood (test code No Growth At 5 Days = Culture: Blood) [facility]2023-10-16 11:24:00 Test Item Value Reference Range Interpretation Comments Glucose Lvl (test code = Glucose Lvl) 78 70-99 [facility] LLFUI5239-52-27 11:24:00 Test Item Value Reference Range Interpretation Comments BUN (test code = BUN) 26 7-22 [facility]2023-10-16 11:24:00 Test Item Value Reference Range Interpretation Comments Creatinine Lvl (test code = Creatinine 1.59 0.50-1.40 Lvl) [facility] LSCNP3464-44-63 11:24:00 Test Item Value Reference Range Interpretation Comments Sodium Lvl (test code = Sodium Lvl) 138 135-145 [facility]2023-10-16 11:24:00 Test Item Value Reference Range Interpretation Comments Potassium Lvl (test code = Potassium 3.8 3.5-5.1 Lvl) [facility] ZXGHQ8986-19-20 11:24:00 Test Item Value Reference Range Interpretation Comments Chloride Lvl (test code = Chloride Lvl) 100 95-109 [place] 945893-10-16 11:24:00 Test Item Value Reference Range Interpretation Comments CO2 (test code = CO2) 32 24-32 [place] 945893-10-16 11:24:00 Test Item Value Reference Range Interpretation Comments Calcium Lvl (test code = Calcium Lvl) 8.5 8.5-10.5 [place] [address]-10-16 11:24:00 Test Item Value Reference Range Interpretation Comments AGAP (test code = AGAP) 9.8 10.0-20.0 [place] [address]-10-16 11:24:00 Test Item Value Reference Range Interpretation Comments eGFR (test code = eGFR) 33 [place] 685143-10-16 11:24:00 Test Item Value Reference Range Interpretation Comments WBC (test code = WBC) 7.7 3.7-10.4 [place] [address]-10-16 11:24:00 Test Item Value Reference Range Interpretation Comments RBC (test code = RBC) 3.24 4.20-5.40 [place] [address]-10-16 11:24:00 Test Item Value Reference Range Interpretation Comments Hgb (test code = Hgb) 8.7 12.0-16.0 [place] [address]-10-16 11:24:00 Test Item Value Reference Range Interpretation Comments Hct (test code = Hct) 27.2 36.0-48.0 [place] [address]-10-16 11:24:00 Test Item Value Reference Range Interpretation Comments MCV (test code = MCV) 84.0 80.0-98.0 [place] [address]-10-16 11:24:00 Test Item Value Reference Range Interpretation Comments MCH (test code = MCH) 27.0 pg 27.0-31.0 [place] [address]-10-16 11:24:00 Test Item Value Reference Range Interpretation Comments MCHC (test code = MCHC) 32.1 32.0-36.0 [place] [address]-10-16 11:24:00 Test Item Value Reference Range Interpretation Comments RDW (test code = RDW) 15.8 11.5-14.5 [place] 685143-10-16 11:24:00 Test Item Value Reference Range Interpretation Comments Platelet (test code = Platelet) 215 133-450 [facility] TylerYzmfeswLRWUBQYFGQ5059-80-92 11:24:00 Test Item Value Reference Range Interpretation Comments MPV (test code = MPV) 7.8 7.4-10.4 [facility]: Trodk5337-04-24 20:28:00 Test Item Value Reference Range Interpretation Comments Culture: Blood (test code No Growth At 5 Days = Culture: Blood) [facility]: Aulgc5929-09-50 20:14:00 Test Item Value Reference Range Interpretation Comments Culture: Blood (test code No Growth At 5 Days = Culture: Blood) [facility]2023-10-15 13:03:00 Test Item Value Reference Range Interpretation Comments Glucose Lvl (test code = Glucose Lvl) 75 70-99 [facility]2023-10-15 13:03:00 Test Item Value Reference Range Interpretation Comments BUN (test code = BUN) 21 7-22 [facility]2023-10-15 13:03:00 Test Item Value Reference Range Interpretation Comments Creatinine Lvl (test code = Creatinine 1.62 0.50-1.40 Lvl) [facility]2023-10-15 13:03:00 Test Item Value Reference Range Interpretation Comments Sodium Lvl (test code = Sodium Lvl) 139 135-145 [facility]2023-10-15 13:03:00 Test Item Value Reference Range Interpretation Comments Potassium Lvl (test code = Potassium 3.8 3.5-5.1 Lvl) [facility]2023-10-15 13:03:00 Test Item Value Reference Range Interpretation Comments Chloride Lvl (test code = Chloride Lvl) 103 95-109 [facility]2023-10-15 13:03:00 Test Item Value Reference Range Interpretation Comments CO2 (test code = CO2) 30 24-32 [place] 945893-10-15 13:03:00 Test Item Value Reference Range Interpretation Comments Calcium Lvl (test code = Calcium Lvl) 8.2 8.5-10.5 [facility]2023-10-15 13:03:00 Test Item Value Reference Range Interpretation Comments AGAP (test code = AGAP) 9.8 10.0-20.0 [facility] SystemCHEM JKKMD8611-42-80 13:03:00 Test Item Value Reference Range Interpretation Comments eGFR (test code = eGFR) 32 [facility] SystemRhcvuajEKEPTZSPWR7107-39-67 13:03:00 Test Item Value Reference Range Interpretation Comments WBC (test code = WBC) 7.2 3.7-10.4 [facility] SystemXrafguuVZUFWFJDZM2926-92-00 13:03:00 Test Item Value Reference Range Interpretation Comments RBC (test code = RBC) 3.21 4.20-5.40 [facility] StationZfvrewoQVOUUOULJR4795-51-14 13:03:00 Test Item Value Reference Range Interpretation Comments Hgb (test code = Hgb) 8.8 12.0-16.0 [facility] SystemQbuuwodDRKRBPMMQT7161-93-49 13:03:00 Test Item Value Reference Range Interpretation Comments Hct (test code = Hct) 26.8 36.0-48.0 [facility] HospitalUhqafzuQLPDXFBFCK8717-18-98 13:03:00 Test Item Value Reference Range Interpretation Comments MCV (test code = MCV) 83.5 80.0-98.0 [facility] SystemIhsdusaPTUJIYXMKW1877-68-42 13:03:00 Test Item Value Reference Range Interpretation Comments MCH (test code = MCH) 27.5 pg 27.0-31.0 [facility] HospitalJkbjjqxLKOBVROIVS7078-20-47 13:03:00 Test Item Value Reference Range Interpretation Comments MCHC (test code = MCHC) 32.9 32.0-36.0 [facility] HospitalHeokvroGOTMLOXVHM6960-85-76 13:03:00 Test Item Value Reference Range Interpretation Comments RDW (test code = RDW) 15.7 11.5-14.5 [facility] HospitalReopbfiZMSHJLPOXM2617-49-94 13:03:00 Test Item Value Reference Range Interpretation Comments Platelet (test code = Platelet) 204 133-450 [facility] SystemKhmmhfhYEMLMMHYYS0158-02-51 13:03:00 Test Item Value Reference Range Interpretation Comments MPV (test code = MPV) 7.9 7.4-10.4 [facility] SystemYgiagaaARNEVIRPAN8781-70-69 13:03:00 Test Item Value Reference Range Interpretation Comments Vancomycin AUC (test code = Vancomycin 17.4 AUC) [place] 945893-10-14 12:23:00 Test Item Value Reference Range Interpretation Comments Glucose Lvl (test code = Glucose Lvl) 80 70-99 [place] 945893-10-14 12:23:00 Test Item Value Reference Range Interpretation Comments BUN (test code = BUN) 22 7-22 [place] 945893-10-14 12:23:00 Test Item Value Reference Range Interpretation Comments Creatinine Lvl (test code = Creatinine 1.73 0.50-1.40 Lvl) [place] 945893-10-14 12:23:00 Test Item Value Reference Range Interpretation Comments Sodium Lvl (test code = Sodium Lvl) 138 135-145 [place] 945893-10-14 12:23:00 Test Item Value Reference Range Interpretation Comments Potassium Lvl (test code = Potassium 3.4 3.5-5.1 Lvl) [place] 945893-10-14 12:23:00 Test Item Value Reference Range Interpretation Comments Chloride Lvl (test code = Chloride Lvl) 102 95-109 [place] 945893-10-14 12:23:00 Test Item Value Reference Range Interpretation Comments CO2 (test code = CO2) 33 24-32 [place] 945893-10-14 12:23:00 Test Item Value Reference Range Interpretation Comments Calcium Lvl (test code = Calcium Lvl) 8.3 8.5-10.5 [place] 945893-10-14 12:23:00 Test Item Value Reference Range Interpretation Comments AGAP (test code = AGAP) 6.4 10.0-20.0 [place] 945893-10-14 12:23:00 Test Item Value Reference Range Interpretation Comments eGFR (test code = eGFR) 30 [place] [address]-10-14 12:23:00 Test Item Value Reference Range Interpretation Comments WBC (test code = WBC) 7.5 3.7-10.4 [place] [address]-10-14 12:23:00 Test Item Value Reference Range Interpretation Comments RBC (test code = RBC) 3.19 4.20-5.40 [place] 685143-10-14 12:23:00 Test Item Value Reference Range Interpretation Comments Hgb (test code = Hgb) 8.8 12.0-16.0 [facility] TylerFitjzypVWBSBYTSNA5986-21-00 12:23:00 Test Item Value Reference Range Interpretation Comments Hct (test code = Hct) 27.1 36.0-48.0 [facility] TylerKeolhenEXOIGPNFFY2152-27-61 12:23:00 Test Item Value Reference Range Interpretation Comments MCV (test code = MCV) 85.0 80.0-98.0 [facility] HospitalBkfizfnOJHEEKNPYK7923-08-61 12:23:00 Test Item Value Reference Range Interpretation Comments MCH (test code = MCH) 27.8 pg 27.0-31.0 [facility] HospitalOgsvgpfTXRTHCGXTG4336-86-95 12:23:00 Test Item Value Reference Range Interpretation Comments MCHC (test code = MCHC) 32.7 32.0-36.0 [facility] TylerTnviomoBPMUTBPYGQ7703-57-56 12:23:00 Test Item Value Reference Range Interpretation Comments RDW (test code = RDW) 16.1 11.5-14.5 [facility] TylerZivmoguOGERUIOYYM2646-44-93 12:23:00 Test Item Value Reference Range Interpretation Comments Platelet (test code = Platelet) 186 133-450 [facility] TylerEoocherQLQWKXHXTM6039-47-73 12:23:00 Test Item Value Reference Range Interpretation Comments MPV (test code = MPV) 8.1 7.4-10.4 [facility]MsrrrgkZCJXDH6121-53-31 12:01:06 Test Item Value Reference Range Interpretation Comments RADRPT (test code = PROCEDURE INFORMATION: RADRPT) Exam: US Duplex Artery and Vein of the Abdominal and/or Reproductive Organs, Complete Exam date and time: 07/12/2023 8:01 PM Age: 82 years old Clinical indication: Abdominal pain, acute/thoracic aneurysm TECHNIQUE: Imaging protocol: Real-time duplex ultrasound scan of the arterial and venous flow of the abdominal and/or reproductive organs with B-mode, color Doppler flow and spectral waveform analysis with image documentation. Exam focused on the region of clinical concern. Complete exam. Duplex exam was performed to evaluate for vascular conditions. COMPARISON: CHEST ABDOMEN PELVIS W CONTRAST CT 09/05/2020 6:31 AM FINDINGS: Other findings: The visualized splenic vein is patent. The hepatic and portal veins are patent with normal direction of flow. PROCEDURE INFORMATION: Exam: US Abdomen Complete Exam date and time: 07/12/2023 8:01 PM Age: 82 years old Clinical indication: Abdominal pain, acute/thoracic aneurysm; () TECHNIQUE: Imaging protocol: Real-time ultrasound of the abdomen with image documentation. Complete exam. COMPARISON: CHEST ABDOMEN PELVIS W CONTRAST CT 09/05/2020 6:31 AM FINDINGS: Liver: The liver is suboptimally delineated with mildly increased hazy echotexture. Gallbladder: Cholecystectomy. Biliary ducts: Visualized common duct measures 7 mm diameter. Pancreas: Incompletely visualized due to overlying bowel gas. Right kidney: Right kidney suboptimally visualized. Cortical scarring. 2.1 cm exophytic cyst. Left kidney: Left kidney not visualized due to overlying bowel gas. Spleen: Unremarkable. Aorta: Aorta is visualized. Aortic bifurcation is suboptimally visualized due to overlying bowel gas. Inferior vena cava: Visualized. IMPRESSION: US Duplex Artery and Vein of the Abdominal and/or Reproductive Organs, Complete Patent portal and hepatic veins. US Abdomen Complete 1. Possible fatty liver. 2. Cyst right kidney. 3. Left kidney and pancreas not visualized due to overlying bowel gas. 4. No abdominal aortic aneurysm is seen. Epifanio Mejia MD On 07/13/2023 07:00:40; [id number] [facility] StationGenticel [id number] 11:04:00 Test Item Value Reference Range Interpretation Comments Total Protein (test code = Total 6.2 6.4-8.4 Protein) [facility] Station[facility] [id number] 11:04:00 Test Item Value Reference Range Interpretation Comments Albumin Lvl (test code = Albumin Lvl) 2.5 3.5-5.0 [facility] StationG[facility]ic[facility] [id number] 11:04:00 Test Item Value Reference Range Interpretation Comments ALT (test code = ALT) 14 <=65 [facility] StationG[facility] [id number] 11:04:00 Test Item Value Reference Range Interpretation Comments AST (test code = AST) 14 <=37 [facility] SystemMaver[facility] LLC[facility] [id number] 11:04:00 Test Item Value Reference Range Interpretation Comments Alk Phos (test code = Alk Phos) 96 39-136 [facility] StationG[facility] [id number] 11:04:00 Test Item Value Reference Range Interpretation Comments Bili Total (test code = Bili Total) 0.4 0.2-1.3 [facility]2023-10-13 11:04:00 Test Item Value Reference Range Interpretation Comments B/C Ratio (test code = B/C Ratio) 12 03-25 [facility]2023-10-13 11:04:00 Test Item Value Reference Range Interpretation Comments Globulin (test code = Globulin) 3.7 2.7-4.2 [facility]2023-10-13 11:04:00 Test Item Value Reference Range Interpretation Comments A/G Ratio (test code = A/G Ratio) 0.7 1 0.7-1.6 [facility]2023-10-13 11:04:00 Test Item Value Reference Range Interpretation Comments Magnesium Lvl (test code = Magnesium 2.1 1.8-2.4 Lvl) [facility] CampusCgrklyuSWVSAANVZ8184-82-34 11:04:00 Test Item Value Reference Range Interpretation Comments Total Protein (test code = Total 6.2 6.4-8.4 Protein) [facility] CampusGmdtudfPDXLNUVLP0637-83-29 11:04:00 Test Item Value Reference Range Interpretation Comments Albumin Lvl (test code = Albumin Lvl) 2.5 3.5-5.0 [facility] CampusUctopafMBUGRXPWO6410-60-46 11:04:00 Test Item Value Reference Range Interpretation Comments ALT (test code = ALT) 14 <=65 [facility] CampusFypdsyrWBZPOJBTH1704-95-49 11:04:00 Test Item Value Reference Range Interpretation Comments AST (test code = AST) 14 <=37 [facility] CampusYgpmpivFLCAKGGLW3221-81-23 11:04:00 Test Item Value Reference Range Interpretation Comments Alk Phos (test code = Alk Phos) 96 39-136 [facility] CampusCyqcehtXHGNCYQUA0932-15-27 11:04:00 Test Item Value Reference Range Interpretation Comments Bili Total (test code = Bili Total) 0.4 0.2-1.3 [place] [id number] 11:04:00 Test Item Value Reference Range Interpretation Comments B/C Ratio (test code = B/C Ratio) 12 03-25 [facility] CampusEydbbruCDWBLCZDD3316-03-85 11:04:00 Test Item Value Reference Range Interpretation Comments Globulin (test code = Globulin) 3.7 2.7-4.2 [facility] StationYvnagvlHWEBJOKFP3567-18-57 11:04:00 Test Item Value Reference Range Interpretation Comments A/G Ratio (test code = A/G Ratio) 0.7 1 0.7-1.6 [facility] StationAwvpzbqMFONKYFEVZ9637-98-42 11:04:00 Test Item Value Reference Range Interpretation Comments Segs (test code = Segs) 78.8 45.0-75.0 [facility] StationWijbkxsLWXPEZMSBF6814-24-66 11:04:00 Test Item Value Reference Range Interpretation Comments Lymphocytes (test code = Lymphocytes) 6.9 20.0-40.0 [facility] StationQusakaeKBAUCBGUXS4204-91-19 11:04:00 Test Item Value Reference Range Interpretation Comments Monocytes (test code = Monocytes) 13.6 2.0-12.0 [facility] StationEkarcyeRUDAJHGHRI3523-39-98 11:04:00 Test Item Value Reference Range Interpretation Comments Eosinophils (test code = Eosinophils) 0.3 <=4.0 [facility] StationDdyivooQMTOYHIRCL4324-93-80 11:04:00 Test Item Value Reference Range Interpretation Comments Basophils (test code = Basophils) 0.4 <=1.0 [facility] StationWmysescWYBLVLPXXO5186-46-43 11:04:00 Test Item Value Reference Range Interpretation Comments Neutrophils # (test code = Neutrophils 8.2 1.5-8.1 #) [facility]ZairtmuSDNWTLANNK5534-13-61 11:04:00 Test Item Value Reference Range Interpretation Comments Lymphocytes # (test code = Lymphocytes 0.7 1.0-5.5 #) [facility] HospitalYfgzdjnNNQAWMSQZU2376-72-06 11:04:00 Test Item Value Reference Range Interpretation Comments Monocytes # (test code = Monocytes #) 1.4 <=0.8 [facility] StationannBACTERIAL - [id number] 23:41:00 Test Item Value Reference Range Interpretation Comments Source Strep (test code Urine *NA*(07/12/23 = Source Strep) 6:41 PM) [facility] StationannBACTERIAL - [id number] 23:41:00 Test Item Value Reference Range Interpretation Comments Strep pneumoniae Ag Negative (07/12/23 (test code = Strep 6:41 PM) pneumoniae Ag) [facility] StationannGram Stain Omyrbg1316-28-11 19:18:00 Test Item Value Reference Range Interpretation Comments Gram Stain Report Gram Stain Performed By: (test code = Gram [facility] Stain Report) [facility] Nancy CarterCulture: Respiratory w/Gram [id number] 19:18:00 Test Item Value Reference Range Interpretation Comments Culture: Respiratory Many Moraxella w/Gram Stain (test code catarrhalis Beta = Culture: Respiratory Lactamase Positive w/Gram Stain) [facility] StationbernieMoraxella zjvzbalwwmh0932-05-73 19:18:00 Test Item Value Reference Range Interpretation Comments Moraxella catarrhalis Moraxella catarrhalis (test code = Moraxella catarrhalis) [facility] StationannGram Cozmv3417-33-81 19:18:00 Test Item Value Reference Range Interpretation Comments Gram Stain (test Less Than 25 Squamous code = Gram Stain) Epithelial Cells/Lpf Many WBC's Seen Moderate Gram Positive Rods Moderate Gram Positive Cocci In Chains Good Quality Specimen [facility] SystemAxqljneIODTRC2111-92-16 11:58:16 Test Item Value Reference Range Interpretation Comments RADRPT (test code Radiation Dose CTDIVOL = 0 = RADRPT) (mGy): DLP = 321.52 (mGy-cm)PROCEDURE INFORMATION: Exam: CT Chest Without Contrast; Diagnostic Exam date and time: 07/12/2023 6:29 AM Age: 82 years old Clinical indication: /cough; Dyspnea TECHNIQUE: Imaging protocol: Diagnostic computed tomography of the chest without contrast. Radiation optimization: All CT scans at this facility use at least one of these dose optimization techniques: automated exposure control; mA and/or kV adjustment per patient size (includes targeted exams where dose is matched to clinical indication); or iterative reconstruction. REPORTING DATA: Count of CT and Cardiac NM exams in prior 12 months: This patient has received 3 known CTs and 0 known cardiac nuclear medicine studies in the 12 months prior to the current study. COMPARISON: CHEST ABDOMEN PELVIS W CONTRAST CT 09/05/2020 6:31 AM RADIATION DOSE METRICS: Total DLP (mGy-cm): 321.52 FINDINGS: Lungs: Patchy bilateral perihilar/peribronchial infiltrate. More dense consolidation with air bronchograms and volume loss at the lung bases.. Pleural spaces: Small volume bilateral pleural effusions. No pneumothorax. Heart: Cardiomegaly. Moderate multivessel coronary artery calcification. No pericardial effusion. Lymph nodes: Unremarkable. No enlarged lymph nodes. Vasculature: Aneurysmal mid ascending thoracic aorta, 4.2 cm diameter. Ectatic and tortuous descending thoracic aorta, 3.1 cm diameter.. Liver: No acute abnormality. Bones/joints: Degenerative disc disease involving all visualized thoracic levels. Old bilateral anterior rib fractures. No acute fracture. 5-6 mm of anterolisthesis of T10 on T11 is likely related to facet degeneration.Soft tissues: Bilateral hydronephrosis, partially visualized.IMPRESSION: 1. Bilateral perihilar/peribronchial infiltrates suggesting bronchitis/bronchopneumonia . More dense consolidation/pneumonia with volume loss at the lung bases. 2. Small volume bilateral pleural effusions. 3. Cardiomegaly, moderate multivessel coronary artery calcifications.4. Aneurysmal mid ascending thoracic aorta, 4 cm diameter.5. Bilateral hydronephrosis is partially visualized on this exam.6. Extensive thoracic degenerative disc disease. 5-6 mm of anterolisthesis of T10 on T11 is likely related to degenerative facet arthropathy.Hollis Wolff MD On 07/12/2023 06:57:09; [id number] [facility]2023-10-12 11:47:00 Test Item Value Reference Range Interpretation Comments Procalcitonin Lvl (test code = 0.11 <=0.10 Procalcitonin Lvl) [facility] CampusGhjcktpRAJRXWLKX0557-80-95 11:47:00 Test Item Value Reference Range Interpretation Comments Procalcitonin Lvl (test code = 0.11 <=0.10 Procalcitonin Lvl) [place] [id number] 11:47:00 Test Item Value Reference Range Interpretation Comments D-Dimer (test code = D-Dimer) 2.37 [place] [address]-10-12 11:47:00 Test Item Value Reference Range Interpretation Comments D-Dimer (test code = D-Dimer) 2.37 [place] [address]-10-12 11:47:00 Test Item Value Reference Range Interpretation Comments Coronavirus (COVID-19) Not Detected JONATHAN (test code = 10(07/12/23 6:47 AM) Coronavirus (COVID-19) JONATHAN) [place] [address]-10-12 11:47:00 Test Item Value Reference Range Interpretation Comments Coronavirus (COVID-19) Not Detected JONATHAN (test code = 8(07/12/23 6:47 AM) Coronavirus (COVID-19) JONATHAN) [facility]: [id number] 11:45:00 Test Item Value Reference Range Interpretation Comments Culture: Blood (test code No Growth At 5 Days = Culture: Blood) [facility] [id number] 11:30:00 Test Item Value Reference Range Interpretation Comments S. aureus (test code = Not Detected (07/12/23 S. aureus) 6:30 AM) [facility] [id number] 11:30:00 Test Item Value Reference Range Interpretation Comments S. epidermidis (test Not Detected code = S. epidermidis) (07/12/23 6:30 AM) [facility] [id number] 11:30:00 Test Item Value Reference Range Interpretation Comments S. lugdunensis (test Not Detected code = S. lugdunensis) (07/12/23 6:30 AM) [facility] [id number] 11:30:00 Test Item Value Reference Range Interpretation Comments S. anginosus grp (test Not Detected (07/12/23 code = S. anginosus 6:30 AM) grp) [facility]2023-10-12 11:30:00 Test Item Value Reference Range Interpretation Comments S. agalactiae (test code Not Detected = S. agalactiae) (07/12/23 6:30 AM) [facility] [id number] 11:30:00 Test Item Value Reference Range Interpretation Comments S. pneumoniae (test code Not Detected = S. pneumoniae) (07/12/23 6:30 AM) [facility] [id number] 11:30:00 Test Item Value Reference Range Interpretation Comments S. pyogenes (test code Not Detected (07/12/23 = S. pyogenes) 6:30 AM) [facility] [id number] 11:30:00 Test Item Value Reference Range Interpretation Comments E. faecalis (test code Detected = E. faecalis) *ABN*(07/12/23 6:30 AM) [place] [address]-10-12 11:30:00 Test Item Value Reference Range Interpretation Comments E. faecium (test code Not Detected (07/12/23 = E. faecium) 6:30 AM) [place] [address]-10-12 11:30:00 Test Item Value Reference Range Interpretation Comments Staphylococcus spp. (test Not Detected code = Staphylococcus (07/12/23 6:30 AM) spp.) [place] [address]-10-12 11:30:00 Test Item Value Reference Range Interpretation Comments Streptococcus spp. (test Not Detected code = Streptococcus (07/12/23 6:30 AM) spp.) [place] [address]-10-12 11:30:00 Test Item Value Reference Range Interpretation Comments Listeria spp. (test Not Detected (07/12/23 code = Listeria spp.) 6:30 AM) [place] [address]-10-12 11:30:00 Test Item Value Reference Range Interpretation Comments mecA Methicillin Not Detected Resistance (test code = (07/12/23 6:30 AM) mecA Methicillin Resistance) [place] [address]-10-12 11:30:00 Test Item Value Reference Range Interpretation Comments Gabriela Vancomycin Not Detected Resistance (test code = (07/12/23 6:30 AM) Gabriela Vancomycin Resistance) [place] [address]-10-12 11:30:00 Test Item Value Reference Range Interpretation Comments vanB Vancomycin Not Detected Resistance (test code = 2(07/12/23 6:30 AM) vanB Vancomycin Resistance) [place] [address]-10-12 11:30:00 Test Item Value Reference Range Interpretation Comments S. aureus (test code = Not Detected (07/12/23 S. aureus) 6:30 AM) [place] [address]-10-12 11:30:00 Test Item Value Reference Range Interpretation Comments S. epidermidis (test Not Detected code = S. epidermidis) (07/12/23 6:30 AM) [place] [address]-10-12 11:30:00 Test Item Value Reference Range Interpretation Comments S. lugdunensis (test Not Detected code = S. lugdunensis) (07/12/23 6:30 AM) [facility]2023-10-12 11:30:00 Test Item Value Reference Range Interpretation Comments S. anginosus grp (test Not Detected (07/12/23 code = S. anginosus 6:30 AM) grp) [place] 036483-10-12 11:30:00 Test Item Value Reference Range Interpretation Comments S. agalactiae (test code Not Detected = S. agalactiae) (07/12/23 6:30 AM) [place] 036483-10-12 11:30:00 Test Item Value Reference Range Interpretation Comments S. pneumoniae (test code Not Detected = S. pneumoniae) (07/12/23 6:30 AM) [place] 036483-10-12 11:30:00 Test Item Value Reference Range Interpretation Comments S. pyogenes (test code Not Detected (07/12/23 = S. pyogenes) 6:30 AM) [place] 036483-10-12 11:30:00 Test Item Value Reference Range Interpretation Comments E. faecalis (test code Detected = E. faecalis) *ABN*(07/12/23 6:30 AM) [place] 036483-10-12 11:30:00 Test Item Value Reference Range Interpretation Comments E. faecium (test code Not Detected (07/12/23 = E. faecium) 6:30 AM) [place] 036483-10-12 11:30:00 Test Item Value Reference Range Interpretation Comments Staphylococcus spp. (test Not Detected code = Staphylococcus (07/12/23 6:30 AM) spp.) [place] 036483-10-12 11:30:00 Test Item Value Reference Range Interpretation Comments Streptococcus spp. (test Not Detected code = Streptococcus (07/12/23 6:30 AM) spp.) [place] 036483-10-12 11:30:00 Test Item Value Reference Range Interpretation Comments Listeria spp. (test Not Detected (07/12/23 code = Listeria spp.) 6:30 AM) [place] 036483-10-12 11:30:00 Test Item Value Reference Range Interpretation Comments mecA Methicillin Not Detected Resistance (test code = (07/12/23 6:30 AM) mecA Methicillin Resistance) [facility] [id number] 11:30:00 Test Item Value Reference Range Interpretation Comments Gabriela Vancomycin Not Detected Resistance (test code = (07/12/23 6:30 AM) Gabriela Vancomycin Resistance) [facility] [id number] 11:30:00 Test Item Value Reference Range Interpretation Comments vanB Vancomycin Not Detected Resistance (test code = 3(07/12/23 6:30 AM) vanB Vancomycin Resistance) [facility]SUSC:PT:ISOLATE:ORDQN:[id number] 11:30:00 Test Item Value Reference Range Interpretation Comments Culture: Blood ENTEROCOCCUS FAECALIS (test code = DETECTED by Verigene Culture: Blood) nucleic acid test. . Aerobic Bottle: Enteroccocus faecalis . Critical Results Called To: Joaquina AVILES @ [place] [id number] At: 07/13/2023 04:35 Called By: DV Read Back Ok [facility]:SUSC:PT:ISOLATE:ORDQN:[id number] 11:30:00 Test Item Value Reference Range Interpretation Comments Enteroccocus faecalis Enteroccocus faecalis (test code = Enteroccocus faecalis) [facility]JevbwmpUZDFUM2757-75-04 08:13:07 Test Item Value Reference Range Interpretation Comments RADRPT (test code = Radiation Dose CTDIVOL = RADRPT) 0 (mGy): DLP = 1017.08 (mGy-cm)PROCEDURE INFORMATION: Exam: CT Head Without Contrast Exam date and time: 07/12/2023 2:47 AM Age: 82 years old Clinical indication: /r/o bleed TECHNIQUE: Imaging protocol: Computed tomography of the head without contrast. Radiation optimization: All CT scans at this facility use at least one of these dose optimization techniques: automated exposure control; mA and/or kV adjustment per patient size (includes targeted exams where dose is matched to clinical indication); or iterative reconstruction. REPORTING DATA: Count of CT and Cardiac NM exams in prior 12 months: This patient has received 3 known CTs and 0 known cardiac nuclear medicine studies in the 12 months prior to the current study. COMPARISON: BRAIN WO CONTRAST CT 11/27/2022 1:36 AM RADIATION DOSE METRICS: Total DLP (mGy-cm): 1017.08 FINDINGS: Brain: There are moderate white matter hypodensities. There is mild atrophy. No acute infarct or intracranial hemorrhage. Cerebral ventricles: No ventriculomegaly. Paranasal sinuses: Left sphenoid sinus air-fluid level is present. This has decreased from prior study. Mastoid air cells: Visualized mastoid air cells are well aerated. Bones/joints: Unremarkable. No acute fracture. Soft tissues: Unremarkable. Vasculature: Distal ICA calcifications. IMPRESSION: 1. No acute intracranial abnormality. 2. Mild atrophy and moderate chronic microvascular ischemic changes. 3. Chronic left sphenoid sinusitis. Anatoly Tobin MD On 07/12/2023 03:12:16; [id number] [facility] SystemZnbrqedCCYQVJ3654-29-01 08:08:06 Test Item Value Reference Range Interpretation Comments RADRPT (test code = Radiation Dose CTDIVOL = 0 RADRPT) (mGy): DLP = 447.7 (mGy-cm)PROCEDURE INFORMATION: Exam: CT Cervical Spine Without Contrast Exam date and time: 07/12/2023 2:47 AM Age: 82 years old Clinical indication: /r/o FX TECHNIQUE: Imaging protocol: Computed tomography of the cervical spine without contrast. Radiation optimization: All CT scans at this facility use at least one of these dose optimization techniques: automated exposure control; mA and/or kV adjustment per patient size (includes targeted exams where dose is matched to clinical indication); or iterative reconstruction. REPORTING DATA: Count of CT and Cardiac NM exams in prior 12 months: This patient has received 3 known CTs and 0 known cardiac nuclear medicine studies in the 12 months prior to the current study. COMPARISON: SPINE CERVICAL WO CONTRAST MRI 11/27/2022 5:38 AM RADIATION DOSE METRICS: Total DLP (mGy-cm): 447.7 FINDINGS: Bones/joints: There is straightening of the cervical spine. Vertebral body heights are maintained. No acute fracture is present. Disc space narrowing and endplate osteophytes at C4-C5, C5-C6, and C6-C7 result in mild spinal canal stenosis and moderate bilateral neural foraminal narrowing. Alignment is preserved. No fracture is present. Lungs: Lung apices are normal. Vasculature: Aortic calcifications. Soft tissues: Unremarkable. IMPRESSION: 1. No acute fracture or malalignment. 2. Straightening may be related to positioning or muscle spasm. 3. Moderate degenerative disc disease at C4-C5, C5-C6, and C6-C7. Anatoly Tobin MD On 07/12/2023 03:07:25; [id number] [facility] [id number] 07:45:35 Test Item Value Reference Range Interpretation Comments RADRPT (test code = PROCEDURE INFORMATION: RADRPT) Exam: XR Chest Exam date and time: 07/12/2023 2:22 AM Age: 82 years old Clinical indication: Injury or trauma; Fall; Additional info: /r/o FX TECHNIQUE: Imaging protocol: Radiologic exam of the chest. Views: 1 view. COMPARISON: CHEST ABDOMEN PELVIS W CONTRAST CT 09/05/2020 6:31 AM FINDINGS: Lungs: Shallow lung volumes. Mild left basilar likely subsegmental atelectasis. No focal infiltrates. Pleural spaces: Unremarkable. No pleural effusion. No pneumothorax. Heart/Mediastinum: Mild enlargement of the cardiac silhouette. Bones/joints: No acute osseous process. Left shoulder arthroplasty. IMPRESSION: Mild left basilar likely subsegmental atelectasis. Brigido Jameson MD On 07/12/2023 02:44:13; [id number] [facility] [id number] 07:44:20 Test Item Value Reference Range Interpretation Comments RADRPT (test code PROCEDURE INFORMATION: = RADRPT) Exam: XR Pelvis Exam date and time: 07/12/2023 2:23 AM Age: 82 years old Clinical indication: Injury or trauma; Fall; Additional info: /r/o FX TECHNIQUE: Imaging protocol: Radiologic exam of the pelvis. Views: 1 or 2 view. COMPARISON: CHEST ABDOMEN PELVIS W CONTRAST CT 09/05/2020 6:31 AM FINDINGS: Bones/joints: No fractures or dislocations of the pelvis. The pelvic and obturator rings are intact. The pubic rami are intact. The symphysis pubis and sacroiliac joints demonstrate no acute findings. The visualized sacral foramina demonstrate no acute findings. The hip joint spaces, proximal femoral regions and acetabular regions demonstrate no acute findings. Soft tissues: No detected radiodense foreign bodies. Notes: If there is further concern, recommend follow-up radiographs or MRI for complete assessment. IMPRESSION: No radiographically identified acute process. Brigido Jameson MD On 07/12/2023 02:43:22; [id number] [facility] [id number] 07:40:00 Test Item Value Reference Range Interpretation Comments HS Troponin I (test code = HS Troponin 29 I) [facility] OYGUL[facility]N0346[facility]98-72 07:40:00 Test Item Value Reference Range Interpretation Comments BNP (test code = BNP) [facility] 07:40:00 Test Item Value Reference Range Interpretation Comments HS Troponin I (test code = HS Troponin 29 I) [facility] CampusCuejtleAOUAMGBZT2222-91-00 07:40:00 Test Item Value Reference Range Interpretation Comments BNP (test code = BNP) 2391 [facility]OjjxzulXNRXKQVDZN5645-32-73 07:40:00 Test Item Value Reference Range Interpretation Comments Segs (test code = Segs) 82.4 45.0-75.0 [facility]IgjfrvxSNODOZBBEO6989-37-80 07:40:00 Test Item Value Reference Range Interpretation Comments Lymphocytes (test code = Lymphocytes) 6.0 20.0-40.0 [facility] HospitalJchugjgCOUNSLVNFV0757-71-73 07:40:00 Test Item Value Reference Range Interpretation Comments Monocytes (test code = Monocytes) 10.3 2.0-12.0 [facility] HospitalZojhmmmBIWSFHLZAG8589-73-02 07:40:00 Test Item Value Reference Range Interpretation Comments Eosinophils (test code = Eosinophils) 0.8 <=4.0 [facility] HospitalWprxrdxZQPTPIOYYU8466-88-37 07:40:00 Test Item Value Reference Range Interpretation Comments Basophils (test code = Basophils) 0.5 <=1.0 [place] 685143-10-12 07:40:00 Test Item Value Reference Range Interpretation Comments Neutrophils # (test code = Neutrophils 11.2 1.5-8.1 #) [facility] HospitalUnohngjXOOMBLXOVW6347-64-27 07:40:00 Test Item Value Reference Range Interpretation Comments Lymphocytes # (test code = Lymphocytes 0.8 1.0-5.5 #) [facility] HospitalHbdvporQBXSTQQHXI0027-61-02 07:40:00 Test Item Value Reference Range Interpretation Comments Monocytes # (test code = Monocytes #) 1.4 <=0.8 [facility] HospitalYoweyhiRWVWZKGZRS2401-31-90 07:40:00 Test Item Value Reference Range Interpretation Comments Eosinophils # (test code = Eosinophils 0.1 <=0.5 #) [facility] HospitalXshmgsmGUYEHWYZXR8791-02-58 07:40:00 Test Item Value Reference Range Interpretation Comments Basophils # (test code = Basophils #) 0.1 <=0.2 [facility]2023-02-28 09:49:00 Test Item Value Reference Range Interpretation Comments Glucose Lvl (test code = Glucose Lvl) 93 70-99 [place] 945893-02-28 09:49:00 Test Item Value Reference Range Interpretation Comments BUN (test code = BUN) 30 7-22 [place] 945893-02-28 09:49:00 Test Item Value Reference Range Interpretation Comments Creatinine Lvl (test code = Creatinine 2.50 0.50-1.40 Lvl) [place] 945893-02-28 09:49:00 Test Item Value Reference Range Interpretation Comments Sodium Lvl (test code = Sodium Lvl) 138 135-145 [place] 945893-02-28 09:49:00 Test Item Value Reference Range Interpretation Comments Potassium Lvl (test code = Potassium 5.1 3.5-5.1 Lvl) [facility]2023-02-28 09:49:00 Test Item Value Reference Range Interpretation Comments Chloride Lvl (test code = Chloride Lvl) 108 95-109 [place] 945893-02-28 09:49:00 Test Item Value Reference Range Interpretation Comments CO2 (test code = CO2) 30 24-32 [place] 945893-02-28 09:49:00 Test Item Value Reference Range Interpretation Comments Calcium Lvl (test code = Calcium Lvl) 8.0 8.5-10.5 [place] 945893-02-28 09:49:00 Test Item Value Reference Range Interpretation Comments AGAP (test code = AGAP) 5.1 10.0-20.0 [place] 945893-02-28 09:49:00 Test Item Value Reference Range Interpretation Comments eGFR (test code = eGFR) 19 [place] 232803-02-28 09:49:00 Test Item Value Reference Range Interpretation Comments Glucose Lvl (test code = Glucose Lvl) 93 70-99 [place] 232803-02-28 09:49:00 Test Item Value Reference Range Interpretation Comments BUN (test code = BUN) 30 7-22 [facility] CampusAmfajvhPZHAMRUPV4242-32-13 09:49:00 Test Item Value Reference Range Interpretation Comments Creatinine Lvl (test code = Creatinine 2.50 0.50-1.40 Lvl) [facility] CampusJgqgbqkGQZKAMCTA2589-26-99 09:49:00 Test Item Value Reference Range Interpretation Comments Sodium Lvl (test code = Sodium Lvl) 138 135-145 [facility] CampusNalkcqdZLEDMZMRA8929-30-27 09:49:00 Test Item Value Reference Range Interpretation Comments Potassium Lvl (test code = Potassium 5.1 3.5-5.1 Lvl) [facility] CampusIoofiihULSVJRFRI1713-61-07 09:49:00 Test Item Value Reference Range Interpretation Comments Chloride Lvl (test code = Chloride Lvl) 108 95-109 [facility] CampusDmwhnfcUGHEJTQFN1572-11-96 09:49:00 Test Item Value Reference Range Interpretation Comments CO2 (test code = CO2) 30 24-32 [facility] CampusOafblhgLPESMEQYN5978-86-46 09:49:00 Test Item Value Reference Range Interpretation Comments Calcium Lvl (test code = Calcium Lvl) 8.0 8.5-10.5 [facility] CampusKvenrmwLXMOZNVZX3460-89-17 09:49:00 Test Item Value Reference Range Interpretation Comments AGAP (test code = AGAP) 5.1 10.0-20.0 [facility] CampusBwamfijQBTUPPTDC8835-35-58 09:49:00 Test Item Value Reference Range Interpretation Comments eGFR (test code = eGFR) 19 [facility] TylerEavvxzkKYMGXBUAUL0889-76-66 09:49:00 Test Item Value Reference Range Interpretation Comments Segs (test code = Segs) 49.2 45.0-75.0 [place] 685143-02-28 09:49:00 Test Item Value Reference Range Interpretation Comments Lymphocytes (test code = Lymphocytes) 33.0 20.0-40.0 [facility] TylerFyuqhqyGBAHVJPSCM7253-37-77 09:49:00 Test Item Value Reference Range Interpretation Comments Monocytes (test code = Monocytes) 10.5 2.0-12.0 [facility] TylerYbzgxfmOSFHDSSSKH6431-33-22 09:49:00 Test Item Value Reference Range Interpretation Comments Eosinophils (test code = Eosinophils) 6.6 <=4.0 [place] 685143-02-28 09:49:00 Test Item Value Reference Range Interpretation Comments Basophils (test code = Basophils) 0.7 <=1.0 [place] [address]-02-28 09:49:00 Test Item Value Reference Range Interpretation Comments Neutrophils # (test code = Neutrophils 3.0 1.5-8.1 #) [place] 685143-02-28 09:49:00 Test Item Value Reference Range Interpretation Comments Lymphocytes # (test code = Lymphocytes 2.0 1.0-5.5 #) [place] 685143-02-28 09:49:00 Test Item Value Reference Range Interpretation Comments Monocytes # (test code = Monocytes #) 0.7 <=0.8 [place] [address]-02-28 09:49:00 Test Item Value Reference Range Interpretation Comments Eosinophils # (test code = Eosinophils 0.4 <=0.5 #) [facility] TylerQuigkwkNOBURCCFAC3686-63-65 09:49:00 Test Item Value Reference Range Interpretation Comments WBC (test code = WBC) 6.2 3.7-10.4 [place] 685143-02-28 09:49:00 Test Item Value Reference Range Interpretation Comments RBC (test code = RBC) 3.06 4.20-5.40 [facility] TylerSsvrwjqSXZGBEKJVZ3382-00-94 09:49:00 Test Item Value Reference Range Interpretation Comments Hgb (test code = Hgb) 9.2 12.0-16.0 [place] [address]-02-28 09:49:00 Test Item Value Reference Range Interpretation Comments Hct (test code = Hct) 28.0 36.0-48.0 [place] [address]-02-28 09:49:00 Test Item Value Reference Range Interpretation Comments MCV (test code = MCV) 91.5 80.0-98.0 [place] 685143-02-28 09:49:00 Test Item Value Reference Range Interpretation Comments MCH (test code = MCH) 30.0 pg 27.0-31.0 [place] 685143-02-28 09:49:00 Test Item Value Reference Range Interpretation Comments MCHC (test code = MCHC) 32.7 32.0-36.0 [place] 685143-02-28 09:49:00 Test Item Value Reference Range Interpretation Comments RDW (test code = RDW) 14.1 11.5-14.5 [place] [address]-02-28 09:49:00 Test Item Value Reference Range Interpretation Comments Platelet (test code = Platelet) 136 133-450 [place] 685143-02-28 09:49:00 Test Item Value Reference Range Interpretation Comments MPV (test code = MPV) 7.7 7.4-10.4 [place] [address]-02-28 09:49:00 Test Item Value Reference Range Interpretation Comments Segs (test code = Segs) 49.2 45.0-75.0 [place] [address]-02-28 09:49:00 Test Item Value Reference Range Interpretation Comments Lymphocytes (test code = Lymphocytes) 33.0 20.0-40.0 [place] [address]-02-28 09:49:00 Test Item Value Reference Range Interpretation Comments Monocytes (test code = Monocytes) 10.5 2.0-12.0 [place] 685143-02-28 09:49:00 Test Item Value Reference Range Interpretation Comments Eosinophils (test code = Eosinophils) 6.6 <=4.0 [place] [address]-02-28 09:49:00 Test Item Value Reference Range Interpretation Comments Basophils (test code = Basophils) 0.7 <=1.0 [place] [address]-02-28 09:49:00 Test Item Value Reference Range Interpretation Comments Neutrophils # (test code = Neutrophils 3.0 1.5-8.1 #) [place] 685143-02-28 09:49:00 Test Item Value Reference Range Interpretation Comments Lymphocytes # (test code = Lymphocytes 2.0 1.0-5.5 #) [place] [address]-02-28 09:49:00 Test Item Value Reference Range Interpretation Comments Monocytes # (test code = Monocytes #) 0.7 <=0.8 [place] [address]-02-28 09:49:00 Test Item Value Reference Range Interpretation Comments Eosinophils # (test code = Eosinophils 0.4 <=0.5 #) [place] 685143-02-28 09:49:00 Test Item Value Reference Range Interpretation Comments WBC (test code = WBC) 6.2 3.7-10.[address]02-28 09:49:00 Test Item Value Reference Range Interpretation Comments RBC (test code = RBC) 3.06 4.20-5.40 [place] 685143-02-28 09:49:00 Test Item Value Reference Range Interpretation Comments Hgb (test code = Hgb) 9.2 12.0-16.0 [place] 685143-02-28 09:49:00 Test Item Value Reference Range Interpretation Comments Hct (test code = Hct) 28.0 36.0-48.0 [facility] TylerPtucwoiJTUQRQLAZB9012-89-47 09:49:00 Test Item Value Reference Range Interpretation Comments MCV (test code = MCV) 91.5 80.0-98.0 [place] 685143-02-28 09:49:00 Test Item Value Reference Range Interpretation Comments MCH (test code = MCH) 30.0 pg 27.0-31.0 [facility] TylerKfmyctrWQQVTSWGYB5273-76-66 09:49:00 Test Item Value Reference Range Interpretation Comments MCHC (test code = MCHC) 32.7 32.0-36.0 [place] 685143-02-28 09:49:00 Test Item Value Reference Range Interpretation Comments RDW (test code = RDW) 14.1 11.5-14.5 [place] 685143-02-28 09:49:00 Test Item Value Reference Range Interpretation Comments Platelet (test code = Platelet) 136 133-450 [facility] TylerVfkcfbrBTHMNWUJCP0475-28-47 09:49:00 Test Item Value Reference Range Interpretation Comments MPV (test code = MPV) 7.7 7.4-10.4 [facility]IibkeogXVFCCC9615-28-78 14:44:19 Test Item Value Reference Range Interpretation [...] canal narrowing at C6-7. [facility]QbxihqfUNNONLNXQJ6778-44-80 10:40:00 Test Item Value Reference Range Interpretation Comments Coronavirus (COVID-19) Not Detected (11/27/22 JONATHAN (test code = 4:40 AM) Coronavirus (COVID-19) JONATHAN) [facility] SystemXhhrjzzNJNEFBFANC2921-09-27 10:40:00 Test Item Value Reference Range Interpretation Comments Coronavirus (COVID-19) Not Detected (11/27/22 JONATHAN (test code = 4:40 AM) Coronavirus (COVID-19) JONATHAN) [facility] SystemHyorjioOQESYY3939-95-44 07:58:03 Test Item Value Reference Range Interpretation [...] at 11/27/2022 2:31 by Urbano Ashton MD [facility] FQKNPUR7573-23-10 07:22:00 Test Item Value Reference Range Interpretation Comments ABO/Rh (test code = ABO/Rh) O POS [facility] ZOAFVQF6735-72-19 07:22:00 Test Item Value Reference Range Interpretation Comments Antibody Scrn (test Negative (11/27/22 1:22 code = Antibody Scrn) AM) [facility] StationAFCV Holdings BANK AVEKXTF5396-09-82 07:22:00 Test Item Value Reference Range Interpretation Comments ABO/Rh (test code = ABO/Rh) O POS [facility] [employer] [facility] NPLIPVG1293-85-78 07:22:00 Test Item Value Reference Range Interpretation Comments Antibody Scrn (test Negative (11/27/22 1:22 code = Antibody Scrn) AM) [facility] StationWbhqimxHCWFXE8845-18-38 06:55:28 Test Item Value Reference Range Interpretation Comments RADRPT (test code EXAM: CT CERVICAL SPINE = RADRPT) WITHOUT CONTRASTDATE: 11/27/2022 0:49INDICATION: Status post fall, pain after trauma. Following trauma transfer for higher level of care request for outside film interpretation CT cervical spine without contrast performed 11/26/2022 [facility] 2044 [facility] None.TECHNIQUE: Volumetric CT of the cervical spine is acquired without contrast. Axial, coronal and sagittal images are provided. IV contrast: None.DLP: Refer to CT protocol formUT SECTION: ERFINDINGS: The spine is imaged from the skull base to the level of T2/T3.Desulfurizer Machine: Noncontributory.Bones:There is generalized decreased bone mineral density.There [...] calcifications are present.6. Agree with outside report. [facility]2023-02-27 06:27:00 Test Item Value Reference Range Interpretation Comments Glucose Lvl (test code = Glucose Lvl) 85 70-99 [place] 945893-02-27 06:27:00 Test Item Value Reference Range Interpretation Comments BUN (test code = BUN) 28 7-22 [place] 945893-02-27 06:27:00 Test Item Value Reference Range Interpretation Comments Creatinine Lvl (test code = Creatinine 2.19 0.50-1.40 Lvl) [place] 945893-02-27 06:27:00 Test Item Value Reference Range Interpretation Comments Sodium Lvl (test code = Sodium Lvl) 143 135-145 [place] 945893-02-27 06:27:00 Test Item Value Reference Range Interpretation Comments Potassium Lvl (test code = Potassium 4.3 3.5-5.1 Lvl) [place] 945893-02-27 06:27:00 Test Item Value Reference Range Interpretation Comments Chloride Lvl (test code = Chloride Lvl) 110 95-109 [place] 945893-02-27 06:27:00 Test Item Value Reference Range Interpretation Comments CO2 (test code = CO2) 27 24-32 [place] 945893-02-27 06:27:00 Test Item Value Reference Range Interpretation Comments Calcium Lvl (test code = Calcium Lvl) 8.1 8.5-10.5 [place] 945893-02-27 06:27:00 Test Item Value Reference Range Interpretation Comments AGAP (test code = AGAP) 10.3 10.0-20.0 [place] 945893-02-27 06:27:00 Test Item Value Reference Range Interpretation Comments eGFR (test code = eGFR) 22 [facility]2023-02-27 06:27:00 Test Item Value Reference Range Interpretation Comments Total Protein (test code = Total 6.6 6.4-8.4 Protein) [place] 945893-02-27 06:27:00 Test Item Value Reference Range Interpretation Comments Albumin Lvl (test code = Albumin Lvl) 3.0 3.5-5.0 [place] 945893-02-27 06:27:00 Test Item Value Reference Range Interpretation Comments Globulin (test code = Globulin) 3.6 2.7-4.2 [place] 945893-02-27 06:27:00 Test Item Value Reference Range Interpretation Comments A/G Ratio (test code = A/G Ratio) 0.8 1 0.7-1.6 [place] 945893-02-27 06:27:00 Test Item Value Reference Range Interpretation Comments ALANINE AMINOTRANSFERASE (test code = 21 <=65 ALANINE AMINOTRANSFERASE) [place] 945893-02-27 06:27:00 Test Item Value Reference Range Interpretation Comments AST (test code = AST) 17 <=37 [place] 945893-02-27 06:27:00 Test Item Value Reference Range Interpretation Comments Alk Phos (test code = Alk Phos) 84 39-136 [place] 945893-02-27 06:27:00 Test Item Value Reference Range Interpretation Comments Bili Total (test code = Bili Total) 0.3 0.2-1.3 [place] 945893-02-27 06:27:00 Test Item Value Reference Range Interpretation Comments Bili Direct (test code = Bili Direct) no gt <=0.3 [place] 945893-02-27 06:27:00 Test Item Value Reference Range Interpretation Comments Bili Indirect (test code Unable to Calculate <=1.0 = Bili Indirect) [place] 945893-02-27 06:27:00 Test Item Value Reference Range Interpretation Comments Lactic Acid Lvl (test code = Lactic 0.5 0.5-2.2 Acid Lvl) [place] 232803-02-27 06:27:00 Test Item Value Reference Range Interpretation Comments Total Protein (test code = Total 6.6 6.4-8.4 Protein) [place] [address]-02-27 06:27:00 Test Item Value Reference Range Interpretation Comments Albumin Lvl (test code = Albumin Lvl) 3.0 3.5-5.0 [place] 232803-02-27 06:27:00 Test Item Value Reference Range Interpretation Comments Globulin (test code = Globulin) 3.6 2.7-4.2 [place] 232803-02-27 06:27:00 Test Item Value Reference Range Interpretation Comments A/G Ratio (test code = A/G Ratio) 0.8 1 0.7-1.6 [place] [address]-02-27 06:27:00 Test Item Value Reference Range Interpretation Comments ALANINE AMINOTRANSFERASE (test code = 21 <=65 ALANINE AMINOTRANSFERASE) [place] 232803-02-27 06:27:00 Test Item Value Reference Range Interpretation Comments AST (test code = AST) 17 <=37 [place] 232803-02-27 06:27:00 Test Item Value Reference Range Interpretation Comments Alk Phos (test code = Alk Phos) 84 39-136 [facility] CampusUhbllyoEUSFESSKL5818-69-19 06:27:00 Test Item Value Reference Range Interpretation Comments Bili Total (test code = Bili Total) 0.3 0.2-1.3 [place] 232803-02-27 06:27:00 Test Item Value Reference Range Interpretation Comments Bili Direct (test code = Bili Direct) no gt <=0.3 [facility] CampusHpjkewqDUCLIHLJU8188-79-69 06:27:00 Test Item Value Reference Range Interpretation Comments Bili Indirect (test code Unable to Calculate <=1.0 = Bili Indirect) [facility] CampusDrwplvzCTJQRNSZO4658-98-21 06:27:00 Test Item Value Reference Range Interpretation Comments pH Justin (test code = pH Justin) 7.29 1 7.28-7.42 [place] 232803-02-27 06:27:00 Test Item Value Reference Range Interpretation Comments pCO2 Justin (test code = pCO2 Justin) 65 38-52 [place] 232803-02-27 06:27:00 Test Item Value Reference Range Interpretation Comments pO2 Justin (test code = pO2 Justin) 37 20-49 [place] 232803-02-27 06:27:00 Test Item Value Reference Range Interpretation Comments HCO3 Justin (test code = HCO3 Justin) 31 22-26 [facility] CampusGbgvaevMZLRXTEWM0434-89-33 06:27:00 Test Item Value Reference Range Interpretation Comments BE Justin (test code = BE Justin) 3 -2-2 [facility] CampusBslkqwtCGMIXHKYY3439-76-00 06:27:00 Test Item Value Reference Range Interpretation Comments O2 Sat Justin (calc) (test code = O2 Sat 63.0 40.0-70.0 Justin (calc)) [facility] CampusTtnklkxRBUWQAAZH3941-77-48 06:27:00 Test Item Value Reference Range Interpretation Comments Temp Justin (test code = Temp Justin) 37.0 [facility] CampusYqlqpyhWKFKKQUTV4602-03-13 06:27:00 Test Item Value Reference Range Interpretation Comments Lactic Acid Lvl (test code = Lactic 0.5 0.5-2.2 Acid Lvl) [facility] CampusFonogcqDGPBEQQNT4134-06-27 06:27:00 Test Item Value Reference Range Interpretation Comments TSH (test code = TSH) 0.403 0.360-3.740 [facility] TylerWsofqxtAOGJLSCOJZ3394-62-39 06:27:00 Test Item Value Reference Range Interpretation Comments WBC X 10x3 (test code = WBC X 10x3) 5.9 3.7-10.4 [facility] TylerLynvgfqNMBAGTTQPR1407-16-23 06:27:00 Test Item Value Reference Range Interpretation Comments RBC X 10x6 (test code = RBC X 10x6) 3.67 4.20-5.40 [facility] TylerCwoeeafAUFPKKVRIG2428-66-62 06:27:00 Test Item Value Reference Range Interpretation Comments Hgb (test code = Hgb) 10.7 12.0-16.0 [facility] TylerVglzdaiGRPXGIOBQA3042-21-92 06:27:00 Test Item Value Reference Range Interpretation Comments Hct (test code = Hct) 33.5 36.0-48.0 [place] 685143-02-27 06:27:00 Test Item Value Reference Range Interpretation Comments MCV (test code = MCV) 91.4 80.0-98.0 [place] 685143-02-27 06:27:00 Test Item Value Reference Range Interpretation Comments MCH (test code = MCH) 29.3 pg 27.0-31.0 [facility] TylerLzvzjjsCDARMNKRVQ9850-59-16 06:27:00 Test Item Value Reference Range Interpretation Comments MCHC (test code = MCHC) 32.0 32.0-36.0 [place] 685143-02-27 06:27:00 Test Item Value Reference Range Interpretation Comments RDW (test code = RDW) 13.7 11.5-14.5 [place] 685143-02-27 06:27:00 Test Item Value Reference Range Interpretation Comments Platelet (test code = Platelet) 139 133-450 [place] 685143-02-27 06:27:00 Test Item Value Reference Range Interpretation Comments MPV (test code = MPV) 7.5 7.4-10.4 [place] 685143-02-27 06:27:00 Test Item Value Reference Range Interpretation Comments ACT (TEG) Rapid (test code = ACT (TEG) 121 s 86-118 Rapid) [place] 685143-02-27 06:27:00 Test Item Value Reference Range Interpretation Comments Split Point Rapid (test code = Split 0.6 min Point Rapid) [place] 685143-02-27 06:27:00 Test Item Value Reference Range Interpretation Comments R-time Rapid (test code = R-time 0.8 min 0.4-0.7 Rapid) [place] 685143-02-27 06:27:00 Test Item Value Reference Range Interpretation Comments K-time Rapid (test code = K-time 0.8 min 0.6-2.3 Rapid) [place] 685143-02-27 06:27:00 Test Item Value Reference Range Interpretation Comments Angle Rapid (test code = Angle 79 degrees 64-80 Rapid) [place] 685143-02-27 06:27:00 Test Item Value Reference Range Interpretation Comments Max Amplitude Rapid (test code = Max 71 mm 52-71 Amplitude Rapid) [place] 685143-02-27 06:27:00 Test Item Value Reference Range Interpretation Comments G-value Rapid (test code = G-value 12.1 5.0-11.6 Rapid) [place] 685143-02-27 06:27:00 Test Item Value Reference Range Interpretation Comments Estimated % Lysis Rapid (test code = 0.0 <=7.5 Estimated % Lysis Rapid) [place] 685143-02-27 06:27:00 Test Item Value Reference Range Interpretation Comments RBC Morph (test code = Normal (11/27/22 12:27 RBC Morph) AM) [facility] TylerEbdzyfrTQYLTNFTDV3524-98-51 06:27:00 Test Item Value Reference Range Interpretation Comments Plt Morph (test code = Normal (11/27/22 12:27 Plt Morph) AM) [facility] TylerKfjslroLWTOUFCOLE3649-12-41 06:27:00 Test Item Value Reference Range Interpretation Comments Segs (test code = Segs) 60.1 45.0-75.0 [facility] TylerLfdsfoaZZAJUQJFPO1957-68-56 06:27:00 Test Item Value Reference Range Interpretation Comments Lymphocytes (test code = Lymphocytes) 23.9 20.0-40.0 [facility] TylerTakfnozCZNAVRSNNI9823-35-76 06:27:00 Test Item Value Reference Range Interpretation Comments Monocytes (test code = Monocytes) 9.6 2.0-12.0 [facility] TylerKapivibSLDGAJSRQA4918-77-68 06:27:00 Test Item Value Reference Range Interpretation Comments Eosinophils (test code = Eosinophils) 5.2 <=4.0 [facility] TylerJsltchuKLNUMPQCLC0150-75-18 06:27:00 Test Item Value Reference Range Interpretation Comments Basophils (test code = Basophils) 1.2 <=1.0 [facility]GfjfjmzSEDWSJLSDC4276-04-57 06:27:00 Test Item Value Reference Range Interpretation Comments Neutrophils # (test code = Neutrophils 3.5 1.5-8.1 #) [facility] TylerVwwwdqlDOMIQSULKE5209-67-54 06:27:00 Test Item Value Reference Range Interpretation Comments Lymphocytes # (test code = Lymphocytes 1.4 1.0-5.5 #) [facility] TylerJprpyhdUSTZRAPBNP5618-81-85 06:27:00 Test Item Value Reference Range Interpretation Comments Monocytes # (test code = Monocytes #) 0.6 <=0.8 [facility] TylerStifnznVFQCFSXIOT9913-04-82 06:27:00 Test Item Value Reference Range Interpretation Comments Eosinophils # (test code = Eosinophils 0.3 <=0.5 #) [facility] TylerYxtujhlSKIHPFDVUN8722-00-13 06:27:00 Test Item Value Reference Range Interpretation Comments Basophils # (test code = Basophils #) 0.1 <=0.2 [facility] TylerTfzmooiDOZHCHXMAO5585-74-86 06:27:00 Test Item Value Reference Range Interpretation Comments ACT (TEG) Rapid (test code = ACT (TEG) 121 s 86-118 Rapid) [facility] TylerNqotfwnWWLCQUCBBV0577-17-62 06:27:00 Test Item Value Reference Range Interpretation Comments Split Point Rapid (test code = Split 0.6 min Point Rapid) [facility] TylerArkbqxqCRVHLVMUAN2890-98-61 06:27:00 Test Item Value Reference Range Interpretation Comments R-time Rapid (test code = R-time 0.8 min 0.4-0.7 Rapid) [place] 685143-02-27 06:27:00 Test Item Value Reference Range Interpretation Comments K-time Rapid (test code = K-time 0.8 min 0.6-2.3 Rapid) [place] [address]-02-27 06:27:00 Test Item Value Reference Range Interpretation Comments Angle Rapid (test code = Angle 79 degrees 64-80 Rapid) [place] [address]-02-27 06:27:00 Test Item Value Reference Range Interpretation Comments Max Amplitude Rapid (test code = Max 71 mm 52-71 Amplitude Rapid) [place] 685143-02-27 06:27:00 Test Item Value Reference Range Interpretation Comments G-value Rapid (test code = G-value 12.1 5.0-11.6 Rapid) [place] 685143-02-27 06:27:00 Test Item Value Reference Range Interpretation Comments Estimated % Lysis Rapid (test code = 0.0 <=7.5 Estimated % Lysis Rapid) [place] [address]-02-27 06:27:00 Test Item Value Reference Range Interpretation Comments RBC Morph (test code = Normal (11/27/22 12:27 RBC Morph) AM) [place] 685143-02-27 06:27:00 Test Item Value Reference Range Interpretation Comments Plt Morph (test code = Normal (11/27/22 12:27 Plt Morph) AM) [place] 685143-02-27 06:27:00 Test Item Value Reference Range Interpretation Comments Basophils # (test code = Basophils #) 0.1 <=0.2 [facility]2023-02-22 13:17:00 Test Item Value Reference Range Interpretation Comments Glucose Lvl (test code = Glucose Lvl) 65 70-99 [place] 945893-02-22 13:17:00 Test Item Value Reference Range Interpretation Comments BUN (test code = BUN) 39 7-22 [place] 945893-02-22 13:17:00 Test Item Value Reference Range Interpretation Comments Creatinine Lvl (test code = Creatinine 2.03 0.50-1.40 Lvl) [facility]2023-02-22 13:17:00 Test Item Value Reference Range Interpretation Comments Sodium Lvl (test code = Sodium Lvl) 139 135-145 [place] 945893-02-22 13:17:00 Test Item Value Reference Range Interpretation Comments Potassium Lvl (test code = Potassium 4.7 3.5-5.1 Lvl) [place] 945893-02-22 13:17:00 Test Item Value Reference Range Interpretation Comments Chloride Lvl (test code = Chloride Lvl) 107 95-109 [facility]2023-02-22 13:17:00 Test Item Value Reference Range Interpretation Comments CO2 (test code = CO2) 26 24-32 [place] 945893-02-22 13:17:00 Test Item Value Reference Range Interpretation Comments Calcium Lvl (test code = Calcium Lvl) 8.1 8.5-10.5 [facility]2023-02-22 13:17:00 Test Item Value Reference Range Interpretation Comments AGAP (test code = AGAP) 10.7 10.0-20.0 [facility]2023-02-22 13:17:00 Test Item Value Reference Range Interpretation Comments eGFR (test code = eGFR) 24 [place] 945893-02-22 13:17:00 Test Item Value Reference Range Interpretation Comments Magnesium Lvl (test code = Magnesium 2.7 1.8-2.4 Lvl) [place] 945893-02-22 13:17:00 Test Item Value Reference Range Interpretation Comments Phosphorus (test code = Phosphorus) 3.9 2.5-4.5 [place] [address]-02-22 13:17:00 Test Item Value Reference Range Interpretation Comments Glucose Lvl (test code = Glucose Lvl) 65 70-99 [place] 232803-02-22 13:17:00 Test Item Value Reference Range Interpretation Comments BUN (test code = BUN) 39 7-22 [place] 232803-02-22 13:17:00 Test Item Value Reference Range Interpretation Comments Creatinine Lvl (test code = Creatinine 2.03 0.50-1.40 Lvl) [facility] CampusTlbkigyPXAQPFTXU2030-95-74 13:17:00 Test Item Value Reference Range Interpretation Comments Sodium Lvl (test code = Sodium Lvl) 139 135-145 [place] 232803-02-22 13:17:00 Test Item Value Reference Range Interpretation Comments Potassium Lvl (test code = Potassium 4.7 3.5-5.1 Lvl) [facility] CampusTwtuhdpMYDEIONQW0233-60-31 13:17:00 Test Item Value Reference Range Interpretation Comments Chloride Lvl (test code = Chloride Lvl) 107 95-109 [place] 232803-02-22 13:17:00 Test Item Value Reference Range Interpretation Comments CO2 (test code = CO2) 26 24-32 [facility] CampusLqojtzsQFUEFJOAT0057-37-74 13:17:00 Test Item Value Reference Range Interpretation Comments Calcium Lvl (test code = Calcium Lvl) 8.1 8.5-10.5 [facility] CampusKviceiyUYXPPNMSL5820-20-34 13:17:00 Test Item Value Reference Range Interpretation Comments AGAP (test code = AGAP) 10.7 10.0-20.0 [facility] CampusXoytuqsQKPWRSYXU8745-48-88 13:17:00 Test Item Value Reference Range Interpretation Comments eGFR (test code = eGFR) 24 [facility] CampusIuvgbyyPVMWCZEIV6314-70-82 13:17:00 Test Item Value Reference Range Interpretation Comments Ca Ion WB (test code = Ca Ion WB) 1.06 1.05-1.25 [place] 232803-02-22 13:17:00 Test Item Value Reference Range Interpretation Comments Ca Ion at pH 7.4 WB (test code = Ca Ion 1.03 1.05-1.25 at pH 7.4 WB) [facility] CampusSudecnjVJQFVVULC5203-09-01 13:17:00 Test Item Value Reference Range Interpretation Comments Magnesium Lvl (test code = Magnesium 2.7 1.8-2.4 Lvl) [facility] CampusHlgcnxeLXMINANBX2248-27-09 13:17:00 Test Item Value Reference Range Interpretation Comments Phosphorus (test code = Phosphorus) 3.9 2.5-4.5 [facility] TylerCbfpyzuVQMVWJKQWT0326-56-72 13:17:00 Test Item Value Reference Range Interpretation Comments Segs (test code = Segs) 54.4 45.0-75.0 [place] 685143-02-22 13:17:00 Test Item Value Reference Range Interpretation Comments Lymphocytes (test code = Lymphocytes) 29.3 20.0-40.0 [place] [address]-02-22 13:17:00 Test Item Value Reference Range Interpretation Comments Monocytes (test code = Monocytes) 10.5 2.0-12.0 [place] [address]-02-22 13:17:00 Test Item Value Reference Range Interpretation Comments Eosinophils (test code = Eosinophils) 5.0 <=4.0 [place] [address]-02-22 13:17:00 Test Item Value Reference Range Interpretation Comments Basophils (test code = Basophils) 0.8 <=1.0 [place] [address]-02-22 13:17:00 Test Item Value Reference Range Interpretation Comments Neutrophils # (test code = Neutrophils 4.1 1.5-8.1 #) [place] 685143-02-22 13:17:00 Test Item Value Reference Range Interpretation Comments Lymphocytes # (test code = Lymphocytes 2.2 1.0-5.5 #) [facility] TylerSrlcuhvVQZQMABELL7989-69-57 13:17:00 Test Item Value Reference Range Interpretation Comments Monocytes # (test code = Monocytes #) 0.8 <=0.8 [place] [address]-02-22 13:17:00 Test Item Value Reference Range Interpretation Comments Eosinophils # (test code = Eosinophils 0.4 <=0.5 #) [place] 685143-02-22 13:17:00 Test Item Value Reference Range Interpretation Comments Basophils # (test code = Basophils #) 0.1 <=0.2 [place] [address]-02-22 13:17:00 Test Item Value Reference Range Interpretation Comments WBC (test code = WBC) 7.5 3.7-10.4 [place] [address]-02-22 13:17:00 Test Item Value Reference Range Interpretation Comments RBC (test code = RBC) 3.30 4.20-5.40 [place] 685143-02-22 13:17:00 Test Item Value Reference Range Interpretation Comments Hgb (test code = Hgb) 9.9 12.0-16.0 [place] 685143-02-22 13:17:00 Test Item Value Reference Range Interpretation Comments Hct (test code = Hct) 30.3 36.0-48.0 [place] 685143-02-22 13:17:00 Test Item Value Reference Range Interpretation Comments MCV (test code = MCV) 91.8 80.0-98.0 [place] 685143-02-22 13:17:00 Test Item Value Reference Range Interpretation Comments MCH (test code = MCH) 30.0 pg 27.0-31.0 [facility] TylerLwkfxunHOBBOMVYYC7424-44-03 13:17:00 Test Item Value Reference Range Interpretation Comments MCHC (test code = MCHC) 32.7 32.0-36.0 [facility] TylerDguwdbuCGQSBIKFNP3979-28-66 13:17:00 Test Item Value Reference Range Interpretation Comments RDW (test code = RDW) 14.4 11.5-14.5 [place] 685143-02-22 13:17:00 Test Item Value Reference Range Interpretation Comments Platelet (test code = Platelet) 136 133-450 [facility] TylerXhxedibAHEJLJDCTO6937-51-24 13:17:00 Test Item Value Reference Range Interpretation Comments MPV (test code = MPV) 8.7 7.4-10.4 [facility] TylerDrxqztlMHWYWTSWBP2802-39-18 13:17:00 Test Item Value Reference Range Interpretation Comments Segs (test code = Segs) 54.4 45.0-75.0 [facility] TylerUrrvedmXGGUQUGSCA4099-69-92 13:17:00 Test Item Value Reference Range Interpretation Comments Lymphocytes (test code = Lymphocytes) 29.3 20.0-40.0 [place] 685143-02-22 13:17:00 Test Item Value Reference Range Interpretation Comments Monocytes (test code = Monocytes) 10.5 2.0-12.0 [place] 685143-02-22 13:17:00 Test Item Value Reference Range Interpretation Comments Eosinophils (test code = Eosinophils) 5.0 <=4.0 [place] 685143-02-22 13:17:00 Test Item Value Reference Range Interpretation Comments Basophils (test code = Basophils) 0.8 <=1.0 [place] 685143-02-22 13:17:00 Test Item Value Reference Range Interpretation Comments Neutrophils # (test code = Neutrophils 4.1 1.5-8.1 #) [place] 685143-02-22 13:17:00 Test Item Value Reference Range Interpretation Comments Lymphocytes # (test code = Lymphocytes 2.2 1.0-5.5 #) [place] 685143-02-22 13:17:00 Test Item Value Reference Range Interpretation Comments Monocytes # (test code = Monocytes #) 0.8 <=0.8 [place] [address]-02-22 13:17:00 Test Item Value Reference Range Interpretation Comments Eosinophils # (test code = Eosinophils 0.4 <=0.5 #) [place] 685143-02-22 13:17:00 Test Item Value Reference Range Interpretation Comments Basophils # (test code = Basophils #) 0.1 <=0.2 [place] 685143-02-22 13:17:00 Test Item Value Reference Range Interpretation Comments WBC (test code = WBC) 7.5 3.7-10.4 [place] 685143-02-22 13:17:00 Test Item Value Reference Range Interpretation Comments RBC (test code = RBC) 3.30 4.20-5.40 [place] 685143-02-22 13:17:00 Test Item Value Reference Range Interpretation Comments Hgb (test code = Hgb) 9.9 12.0-16.0 [place] [address]-02-22 13:17:00 Test Item Value Reference Range Interpretation Comments Hct (test code = Hct) 30.3 36.0-48.0 [place] 685143-02-22 13:17:00 Test Item Value Reference Range Interpretation Comments MCV (test code = MCV) 91.8 80.0-98.0 [place] [address]-02-22 13:17:00 Test Item Value Reference Range Interpretation Comments MCH (test code = MCH) 30.0 pg 27.0-31.0 [place] [address]-02-22 13:17:00 Test Item Value Reference Range Interpretation Comments MCHC (test code = MCHC) 32.7 32.0-36.0 [place] 685143-02-22 13:17:00 Test Item Value Reference Range Interpretation Comments RDW (test code = RDW) 14.4 11.5-14.5 [facility]fekbfPUCVNALWNZ1003[facility]58-[facility] 13:17:00 Test Item Value Reference Range Interpretation Comments Platelet (test code = Platelet) 136 133-450 [facility] HospitalVheejsbTNHVAIEQZX5336-56-67 13:17:00 Test Item Value Reference Range Interpretation Comments MPV (test code = MPV) 8.7 7.4-10.4 [facility]2023-02-22 13:17:00 Test Item Value Reference Range Interpretation Comments Ca Ion WB (test code = Ca Ion WB) 1.06 1.05-1.25 [facility] PFKFPXZ9949-41-24 13:17:00 Test Item Value Reference Range Interpretation Comments Ca Ion at pH 7.4 WB (test code = Ca Ion 1.03 1.05-1.25 at pH 7.4 WB) [facility] CampusAjuudjnZTIQLCLKG8153-49-82 15:39:00 Test Item Value Reference Range Interpretation Comments U Amph Scr (test code Negative *NA*(11/21/22 = U Amph Scr) 9:39 AM) [facility] CampusSdtxhmoEJRUVROHO9377-15-18 15:39:00 Test Item Value Reference Range Interpretation Comments U Analilia Scr (test code Positive *ABN*(11/21/22 = U Analilia Scr) 9:39 AM) [facility] CampusJegojzcAIAQGDNVA7249-14-02 15:39:00 Test Item Value Reference Range Interpretation Comments U Benzodiaz Scr (test Negative *NA*(11/21/22 code = U Benzodiaz Scr) 9:39 AM) [facility] CampusBhgapszATKONWVIX5012-45-34 15:39:00 Test Item Value Reference Range Interpretation Comments U Cocaine Scr (test Negative *NA*(11/21/22 code = U Cocaine Scr) 9:39 AM) [facility] CampusUvxbiebUKUMIOELO8535-67-00 15:39:00 Test Item Value Reference Range Interpretation Comments U Cannab Scr (test Negative *NA*(11/21/22 code = U Cannab Scr) 9:39 AM) [facility] CampusQcfqtvnYXDGNXFPN1977-26-77 15:39:00 Test Item Value Reference Range Interpretation Comments U Opiate Scr (test Positive *ABN*(11/21/22 code = U Opiate Scr) 9:39 AM) [facility] CampusXtkquwaSHLDVVNIV3493-43-88 15:39:00 Test Item Value Reference Range Interpretation Comments U Phencyclidine Scr (test Negative code = U Phencyclidine *NA*(11/21/22 9:39 Scr) AM) [facility]mwmssnKPGUIKECU4565-59-69 15:39:00 Test Item Value Reference Range Interpretation Comments UDS Note (test code = See Note (11/21/22 9:39 UDS Note) AM) [facility] [id number] 15:39:00 Test Item Value Reference Range Interpretation Comments U Amph Scr (test code Negative *NA*(11/21/22 = U Amph Scr) 9:39 AM) [facility] [id number] 15:39:00 Test Item Value Reference Range Interpretation Comments U Analilia Scr (test code Positive *ABN*(11/21/22 = U Analilia Scr) 9:39 AM) [facility] [id number] 15:39:00 Test Item Value Reference Range Interpretation Comments U Benzodiaz Scr (test Negative *NA*(11/21/22 code = U Benzodiaz Scr) 9:39 AM) [facility] [id number] 15:39:00 Test Item Value Reference Range Interpretation Comments U Cocaine Scr (test Negative *NA*(11/21/22 code = U Cocaine Scr) 9:39 AM) [facility] [id number] 15:39:00 Test Item Value Reference Range Interpretation Comments U Cannab Scr (test Negative *NA*(11/21/22 code = U Cannab Scr) 9:39 AM) [facility] [id number] 15:39:00 Test Item Value Reference Range Interpretation Comments U Opiate Scr (test Positive *ABN*(11/21/22 code = U Opiate Scr) 9:39 AM) [facility] [id number] 15:39:00 Test Item Value Reference Range Interpretation Comments U Phencyclidine Scr (test Negative code = U Phencyclidine *NA*(11/21/22 9:39 Scr) AM) [facility] [id number] 15:39:00 Test Item Value Reference Range Interpretation Comments UDS Note (test code = See Note (11/21/22 9:39 UDS Note) AM) [facility] KowirywLQSSEMUZPS8789-14-82 15:39:00 Test Item Value Reference Range Interpretation Comments Coronavirus (COVID-19) Not Detected (11/21/22 JONATHAN (test code = 9:39 AM) Coronavirus (COVID-19) JONATHAN) [facility] StationCkwntpyHJUDUZCCQN0178-62-56 15:39:00 Test Item Value Reference Range Interpretation Comments Coronavirus (COVID-19) Not Detected (11/21/22 JONATHAN (test code = 9:39 AM) Coronavirus (COVID-19) JONATHAN) [facility] [id number] 15:39:00 Test Item Value Reference Range Interpretation Comments UA Color (test code = Light Yellow UA Color) *NA*(11/21/22 9:39 AM) [facility] [id number] 15:39:00 Test Item Value Reference Range Interpretation Comments UA Turbidity (test code = Clear (11/21/22 9:39 UA Turbidity) AM) [facility] [id number] 15:39:00 Test Item Value Reference Range Interpretation Comments UA Spec Grav (test code = UA Spec 1.014 1 Grav) [facility] [id number] 15:39:00 Test Item Value Reference Range Interpretation Comments UA pH (test code = UA pH) 6.0 1 5.0-8.0 [facility] [id number] 15:39:00 Test Item Value Reference Range Interpretation Comments UA Protein (test code = UA Protein) 30 mg/dL [facility] [id number] 15:39:00 Test Item Value Reference Range Interpretation Comments UA Glucose (test code = UA Negative mg/dL Glucose) [facility] [id number] 15:39:00 Test Item Value Reference Range Interpretation Comments UA Ketones (test code = UA Negative mg/dL Ketones) [facility] [id number] 15:39:00 Test Item Value Reference Range Interpretation Comments UA Bili (test code = Negative *NA*(11/21/22 UA Bili) 9:39 AM) [facility] [id number] 15:39:00 Test Item Value Reference Range Interpretation Comments UA Blood (test code = Negative (11/21/22 9:39 UA Blood) AM) [facility] [id number] 15:39:00 Test Item Value Reference Range Interpretation Comments UA Urobilinogen (test code = UA no gt 0.1-1.0 Urobilinogen) [facility] [id number] 15:39:00 Test Item Value Reference Range Interpretation Comments UA Nitrite (test code Negative (11/21/22 9:39 = UA Nitrite) AM) [facility] [id number] 15:39:00 Test Item Value Reference Range Interpretation Comments UA Leuk Est (test Negative (11/21/22 9:39 code = UA Leuk Est) AM) [facility] [id number] 15:39:00 Test Item Value Reference Range Interpretation Comments UA Sq Epi (test code = UA Sq Occasional /LPF Epi) [facility] [id number] 15:39:00 Test Item Value Reference Range Interpretation Comments UA WBC (test code = UA WBC) no gt <=5 [facility] [id number] 15:39:00 Test Item Value Reference Range Interpretation Comments UA RBC (test code = UA RBC) no gt <=2 [facility] [id number] 15:39:00 Test Item Value Reference Range Interpretation Comments UA Color (test code = Light Yellow UA Color) *NA*(11/21/22 9:39 AM) [facility] [id number] 15:39:00 Test Item Value Reference Range Interpretation Comments UA Turbidity (test code = Clear (11/21/22 9:39 UA Turbidity) AM) [facility] [id number] 15:39:00 Test Item Value Reference Range Interpretation Comments UA Spec Grav (test code = UA Spec 1.014 1 Grav) [facility] [id number] 15:39:00 Test Item Value Reference Range Interpretation Comments UA pH (test code = UA pH) 6.0 1 5.0-8.0 [facility] [id number] 15:39:00 Test Item Value Reference Range Interpretation Comments UA Protein (test code = UA Protein) 30 mg/dL [facility] [id number] 15:39:00 Test Item Value Reference Range Interpretation Comments UA Glucose (test code = UA Negative mg/dL Glucose) [facility] [id number] 15:39:00 Test Item Value Reference Range Interpretation Comments UA Ketones (test code = UA Negative mg/dL Ketones) [facility] AND [id number] 15:39:00 Test Item Value Reference Range Interpretation Comments UA Bili (test code = Negative *NA*(11/21/22 UA Bili) 9:39 AM) [facility] AND [id number] 15:39:00 Test Item Value Reference Range Interpretation Comments UA Blood (test code = Negative (11/21/22 9:39 UA Blood) AM) [facility] AND [id number] 15:39:00 Test Item Value Reference Range Interpretation Comments UA Urobilinogen (test code = UA no gt 0.1-1.0 Urobilinogen) [facility] AND [id number] 15:39:00 Test Item Value Reference Range Interpretation Comments UA Nitrite (test code Negative (11/21/22 9:39 = UA Nitrite) AM) [facility] AND [id number] 15:39:00 Test Item Value Reference Range Interpretation Comments UA Leuk Est (test Negative (11/21/22 9:39 code = UA Leuk Est) AM) [facility] AND [id number] 15:39:00 Test Item Value Reference Range Interpretation Comments UA Sq Epi (test code = UA Sq Occasional /LPF Epi) [facility] AND [id number] 15:39:00 Test Item Value Reference Range Interpretation Comments UA WBC (test code = UA WBC) no gt <=5 [facility] AND [id number] 15:39:00 Test Item Value Reference Range Interpretation Comments UA RBC (test code = UA RBC) no gt <=2 [facility] [employer] [facility] [id number] 12:50:00 Test Item Value Reference Range Interpretation Comments ABO/Rh (test code = ABO/Rh) O POS [facility] [employer] [id number] 12:50:00 Test Item Value Reference Range Interpretation Comments Antibody Scrn (test Negative (11/21/22 6:50 code = Antibody Scrn) AM) [facility] [employer] [id number] 12:50:00 Test Item Value Reference Range Interpretation Comments ABO/Rh (test code = ABO/Rh) O POS [facility] [id number] 12:50:00 Test Item Value Reference Range Interpretation Comments Antibody Scrn (test Negative (11/21/22 6:50 code = Antibody Scrn) AM) [facility] [id number] 12:50:00 Test Item Value Reference Range Interpretation Comments HS Troponin I (test code = HS Troponin 15 I) [facility] SystemMaverick Wine Group LLC[facility] [id number] 12:50:00 Test Item Value Reference Range Interpretation Comments Glucose Lvl (test code = Glucose Lvl) 99 70-99 [facility]2023-02-21 12:50:00 Test Item Value Reference Range Interpretation Comments BUN (test code = BUN) 38 7-22 [facility]2023-02-21 12:50:00 Test Item Value Reference Range Interpretation Comments Creatinine Lvl (test code = Creatinine 2.38 0.50-1.40 Lvl) [facility] LLC[facility] [id number] 12:50:00 Test Item Value Reference Range Interpretation Comments Sodium Lvl (test code = Sodium Lvl) 140 135-145 [facility] LLC[facility] [id number] 12:50:00 Test Item Value Reference Range Interpretation Comments Potassium Lvl (test code = Potassium 3.9 3.5-5.1 Lvl) [facility]2023-02-21 12:50:00 Test Item Value Reference Range Interpretation Comments Chloride Lvl (test code = Chloride Lvl) 107 95-109 [facility] SystemM[facility] LLC[facility] [id number] 12:50:00 Test Item Value Reference Range Interpretation Comments CO2 (test code = CO2) 27 24-32 [facility] [facility] [id number] 12:50:00 Test Item Value Reference Range Interpretation Comments Calcium Lvl (test code = Calcium Lvl) 8.1 8.5-10.5 [facility] [id number] 12:50:00 Test Item Value Reference Range Interpretation Comments AGAP (test code = AGAP) 9.9 10.0-20.0 [facility]2023-02-21 12:50:00 Test Item Value Reference Range Interpretation Comments eGFR (test code = eGFR) 20 [facility]2023-02-21 12:50:00 Test Item Value Reference Range Interpretation Comments Lactic Acid Lvl (test code = Lactic 0.7 0.5-2.2 Acid Lvl) [place] 945893-02-21 12:50:00 Test Item Value Reference Range Interpretation Comments Total Protein (test code = Total 6.1 6.4-8.4 Protein) [place] 945893-02-21 12:50:00 Test Item Value Reference Range Interpretation Comments Albumin Lvl (test code = Albumin Lvl) 2.9 3.5-5.0 [place] 945893-02-21 12:50:00 Test Item Value Reference Range Interpretation Comments Globulin (test code = Globulin) 3.2 2.7-4.2 [place] 945893-02-21 12:50:00 Test Item Value Reference Range Interpretation Comments A/G Ratio (test code = A/G Ratio) 0.9 1 0.7-1.6 [place] [address]-02-21 12:50:00 Test Item Value Reference Range Interpretation Comments ALT (test code = ALT) 16 <=65 [place] 945893-02-21 12:50:00 Test Item Value Reference Range Interpretation Comments AST (test code = AST) 15 <=37 [place] [address]-02-21 12:50:00 Test Item Value Reference Range Interpretation Comments Alk Phos (test code = Alk Phos) 96 39-136 [place] 945893-02-21 12:50:00 Test Item Value Reference Range Interpretation Comments Bili Total (test code = Bili Total) 0.2 0.2-1.3 [place] 945893-02-21 12:50:00 Test Item Value Reference Range Interpretation Comments Bili Direct (test code = Bili Direct) no gt <=0.3 [place] 945893-02-21 12:50:00 Test Item Value Reference Range Interpretation Comments Bili Indirect (test code Unable to Calculate <=1.0 = Bili Indirect) [place] [address]-02-21 12:50:00 Test Item Value Reference Range Interpretation Comments Ethanol Lvl (test code = Ethanol Lvl) no gt [place] 232803-02-21 12:50:00 Test Item Value Reference Range Interpretation Comments Etoh (%) (test code = Etoh (%)) no gt [facility] CampusXkimkuqRWCCXXMKZ2219-41-02 12:50:00 Test Item Value Reference Range Interpretation Comments Lactic Acid Lvl (test code = Lactic 0.7 0.5-2.2 Acid Lvl) [facility] CampusDqetoabXGSOMKAAR2395-25-02 12:50:00 Test Item Value Reference Range Interpretation Comments Total Protein (test code = Total 6.1 6.4-8.4 Protein) [facility] CampusTaqzafcWYZWHDELL4829-28-59 12:50:00 Test Item Value Reference Range Interpretation Comments Albumin Lvl (test code = Albumin Lvl) 2.9 3.5-5.0 [facility] CampusWsvhtdqCUNJETXYE8661-89-80 12:50:00 Test Item Value Reference Range Interpretation Comments Globulin (test code = Globulin) 3.2 2.7-4.2 [facility] CampusKxmqjzuZHFRZJWHZ2161-46-81 12:50:00 Test Item Value Reference Range Interpretation Comments A/G Ratio (test code = A/G Ratio) 0.9 1 0.7-1.6 [facility] CampusDrqdhoiBFGMIIGXN3178-69-72 12:50:00 Test Item Value Reference Range Interpretation Comments ALT (test code = ALT) 16 <=65 [facility] CampusFpmjdnqFCMQJFOYU9172-50-22 12:50:00 Test Item Value Reference Range Interpretation Comments AST (test code = AST) 15 <=37 [facility] CampusAhevzsgCGSXSPFQF1468-62-76 12:50:00 Test Item Value Reference Range Interpretation Comments Alk Phos (test code = Alk Phos) 96 39-136 [facility] CampusAwvndhnDZTKKTGSM5228-43-46 12:50:00 Test Item Value Reference Range Interpretation Comments Bili Total (test code = Bili Total) 0.2 0.2-1.3 [facility] CampusKvbixrmSVBDMMXJH6518-88-69 12:50:00 Test Item Value Reference Range Interpretation Comments Bili Direct (test code = Bili Direct) no gt <=0.3 [facility] CampusZcxewtuWFAGJIROZ5792-94-97 12:50:00 Test Item Value Reference Range Interpretation Comments Bili Indirect (test code Unable to Calculate <=1.0 = Bili Indirect) [facility] CampusLmdfuzdIDPCVSXKN7090-07-80 12:50:00 Test Item Value Reference Range Interpretation Comments HS Troponin I (test code = HS Troponin 15 I) [facility] CampusKzwgviyYVPJBGBJG5805-63-11 12:50:00 Test Item Value Reference Range Interpretation Comments pH Justin (test code = pH Jsutin) 7.35 1 7.28-7.42 [place] 232803-02-21 12:50:00 Test Item Value Reference Range Interpretation Comments pCO2 Justin (test code = pCO2 Justin) 55 38-52 [place] 232803-02-21 12:50:00 Test Item Value Reference Range Interpretation Comments pO2 Justin (test code = pO2 Justin) 43 20-49 [place] [address]-02-21 12:50:00 Test Item Value Reference Range Interpretation Comments HCO3 Justin (test code = HCO3 Justin) 30 22-26 [place] 232803-02-21 12:50:00 Test Item Value Reference Range Interpretation Comments BE Justin (test code = BE Justin) 3 -2-2 [place] 232803-02-21 12:50:00 Test Item Value Reference Range Interpretation Comments O2 Sat Justin (calc) (test code = O2 Sat 75.9 40.0-70.0 Justin (calc)) [facility] CampusUtedqrkCZZKFIXRD9679-93-97 12:50:00 Test Item Value Reference Range Interpretation Comments Temp Justin (test code = Temp Justin) 37.0 [place] 685143-02-21 12:50:00 Test Item Value Reference Range Interpretation Comments ACT (TEG) Rapid (test code = ACT (TEG) 113 s 86-118 Rapid) [facility] TylerQncoomsWUOFANXVVT0586-32-28 12:50:00 Test Item Value Reference Range Interpretation Comments Split Point Rapid (test code = Split 0.6 min Point Rapid) [place] 685143-02-21 12:50:00 Test Item Value Reference Range Interpretation Comments R-time Rapid (test code = R-time 0.7 min 0.4-0.7 Rapid) [place] 685143-02-21 12:50:00 Test Item Value Reference Range Interpretation Comments K-time Rapid (test code = K-time 1.1 min 0.6-2.3 Rapid) [place] 685143-02-21 12:50:00 Test Item Value Reference Range Interpretation Comments Angle Rapid (test code = Angle 78 degrees 64-80 Rapid) [place] 685143-02-21 12:50:00 Test Item Value Reference Range Interpretation Comments Max Amplitude Rapid (test code = Max 65 mm 52-71 Amplitude Rapid) [place] 685143-02-21 12:50:00 Test Item Value Reference Range Interpretation Comments G-value Rapid (test code = G-value 9.2 5.0-11.6 Rapid) [place] 685143-02-21 12:50:00 Test Item Value Reference Range Interpretation Comments Estimated % Lysis Rapid (test code = 0.0 <=7.5 Estimated % Lysis Rapid) [place] [address]-02-21 12:50:00 Test Item Value Reference Range Interpretation Comments Plt Morph (test code = See Note 1(11/21/22 Plt Morph) 6:50 AM) [place] 685143-02-21 12:50:00 Test Item Value Reference Range Interpretation Comments Stomatocyte (test code = Stomatocyte) slight [facility] TylerDedlqtpYLGYNHVFBB8515-17-02 12:50:00 Test Item Value Reference Range Interpretation Comments WBC X 10x3 (test code = WBC X 10x3) 8.7 3.7-10.4 [place] 685143-02-21 12:50:00 Test Item Value Reference Range Interpretation Comments RBC X 10x6 (test code = RBC X 10x6) 3.56 4.20-5.40 [place] 685143-02-21 12:50:00 Test Item Value Reference Range Interpretation Comments Hgb (test code = Hgb) 10.4 12.0-16.0 [place] [address]-02-21 12:50:00 Test Item Value Reference Range Interpretation Comments Hct (test code = Hct) 32.3 36.0-48.0 [place] [address]-02-21 12:50:00 Test Item Value Reference Range Interpretation Comments MCV (test code = MCV) 90.8 80.0-98.0 [place] [address]-02-21 12:50:00 Test Item Value Reference Range Interpretation Comments MCH (test code = MCH) 29.3 pg 27.0-31.0 [place] [address]-02-21 12:50:00 Test Item Value Reference Range Interpretation Comments MCHC (test code = MCHC) 32.2 32.0-36.0 [place] [address]-02-21 12:50:00 Test Item Value Reference Range Interpretation Comments RDW (test code = RDW) 13.7 11.5-14.5 [place] [address]-02-21 12:50:00 Test Item Value Reference Range Interpretation Comments Platelet (test code = Platelet) 137 133-450 [place] 685143-02-21 12:50:00 Test Item Value Reference Range Interpretation Comments MPV (test code = MPV) 7.9 7.4-10.4 [place] [address]-02-21 12:50:00 Test Item Value Reference Range Interpretation Comments ACT (TEG) Rapid (test code = ACT (TEG) 113 s 86-118 Rapid) [place] [address]-02-21 12:50:00 Test Item Value Reference Range Interpretation Comments Split Point Rapid (test code = Split 0.6 min Point Rapid) [place] [address]-02-21 12:50:00 Test Item Value Reference Range Interpretation Comments R-time Rapid (test code = R-time 0.7 min 0.4-0.7 Rapid) [place] [address]-02-21 12:50:00 Test Item Value Reference Range Interpretation Comments K-time Rapid (test code = K-time 1.1 min 0.6-2.3 Rapid) [place] [address]-02-21 12:50:00 Test Item Value Reference Range Interpretation Comments Angle Rapid (test code = Angle 78 degrees 64-80 Rapid) [place] [address]-02-21 12:50:00 Test Item Value Reference Range Interpretation Comments Max Amplitude Rapid (test code = Max 65 mm 52-71 Amplitude Rapid) [place] [address]-02-21 12:50:00 Test Item Value Reference Range Interpretation Comments G-value Rapid (test code = G-value 9.2 5.0-11.6 Rapid) [place] [address]-02-21 12:50:00 Test Item Value Reference Range Interpretation Comments Estimated % Lysis Rapid (test code = 0.0 <=7.5 Estimated % Lysis Rapid) [place] [address]-02-21 12:50:00 Test Item Value Reference Range Interpretation Comments Plt Morph (test code = See Note 1(11/21/22 Plt Morph) 6:50 AM) [place] [address]-02-21 12:50:00 Test Item Value Reference Range Interpretation Comments Segs (test code = Segs) 64.1 45.0-75.0 [place] 685143-02-21 12:50:00 Test Item Value Reference Range Interpretation Comments Lymphocytes (test code = Lymphocytes) 22.0 20.0-40.0 [place] 685143-02-21 12:50:00 Test Item Value Reference Range Interpretation Comments Monocytes (test code = Monocytes) 8.3 2.0-12.0 [facility] TylerDuuwdymVOEHLNTQON8223-99-90 12:50:00 Test Item Value Reference Range Interpretation Comments Eosinophils (test code = Eosinophils) 4.7 <=4.0 [place] 685143-02-21 12:50:00 Test Item Value Reference Range Interpretation Comments Basophils (test code = Basophils) 0.9 <=1.0 [place] 685143-02-21 12:50:00 Test Item Value Reference Range Interpretation Comments Neutrophils # (test code = Neutrophils 5.6 1.5-8.1 #) [facility] TylerBefzjosURQSTWVEBA5441-42-89 12:50:00 Test Item Value Reference Range Interpretation Comments Lymphocytes # (test code = Lymphocytes 1.9 1.0-5.5 #) [facility] TylerLyieoawBBRFJBLOXU2926-03-21 12:50:00 Test Item Value Reference Range Interpretation Comments Monocytes # (test code = Monocytes #) 0.7 <=0.8 [place] 685143-02-21 12:50:00 Test Item Value Reference Range Interpretation Comments Eosinophils # (test code = Eosinophils 0.4 <=0.5 #) [facility] TylerJptqwosPPNFBCZERO9555-55-56 12:50:00 Test Item Value Reference Range Interpretation Comments Basophils # (test code = Basophils #) 0.1 <=0.2 [place] 685143-02-21 12:50:00 Test Item Value Reference Range Interpretation Comments Stomatocyte (test code = Stomatocyte) slight [place] 15768023-02-21 12:50:00 Test Item Value Reference Range Interpretation Comments Ethanol Lvl (test code = Ethanol Lvl) no gt [place] 15768023-02-21 12:50:00 Test Item Value Reference Range Interpretation Comments Etoh (%) (test code = Etoh (%)) no gt [facility]hdhudxWDVWCL4167-57-44 12:25:01 Test Item Value Reference Range Interpretation [...] and resurfacing of the patella.UT SECTION: ER [place] 06576023-02-21 11:23:44 Test Item Value Reference Range Interpretation [...] [facility] [id number] 10:24:00 Test Item Value Reference Range Interpretation Comments Glucose Lvl (test code = Glucose Lvl) 66 70-99 [facility] StationG[facility] [id number] 10:24:00 Test Item Value Reference Range Interpretation Comments BUN (test code = BUN) 19 7-22 [facility] [id number] 10:24:00 Test Item Value Reference Range Interpretation Comments Creatinine Lvl (test code = Creatinine 1.82 0.50-1.40 Lvl) [facility]2020-12-07 10:24:00 Test Item Value Reference Range Interpretation Comments Sodium Lvl (test code = Sodium Lvl) 139 135-145 [facility]2020-12-07 10:24:00 Test Item Value Reference Range Interpretation Comments Potassium Lvl (test code = Potassium 4.2 3.5-5.1 Lvl) [facility]2020-12-07 10:24:00 Test Item Value Reference Range Interpretation Comments Chloride Lvl (test code = Chloride Lvl) 105 95-109 [facility]2020-12-07 10:24:00 Test Item Value Reference Range Interpretation Comments CO2 (test code = CO2) 28 24-32 [place] 945890-12-07 10:24:00 Test Item Value Reference Range Interpretation Comments Calcium Lvl (test code = Calcium Lvl) 8.2 8.5-10.5 [facility]2020-12-07 10:24:00 Test Item Value Reference Range Interpretation Comments AGAP (test code = AGAP) 10.2 10.0-20.0 [facility]2020-12-07 10:24:00 Test Item Value Reference Range Interpretation Comments eGFR (test code = eGFR) 26 [facility] TylerXiljtcyNGOORRMTHZ2838-87-52 10:24:00 Test Item Value Reference Range Interpretation Comments Segs (test code = Segs) 70.6 45.0-75.0 [facility] TylerZsxjqygRTCCYYWWRP2289-35-11 10:24:00 Test Item Value Reference Range Interpretation Comments Lymphocytes (test code = Lymphocytes) 13.2 20.0-40.0 [place] 685140-12-07 10:24:00 Test Item Value Reference Range Interpretation Comments Monocytes (test code = Monocytes) 10.9 2.0-12.0 [place] [address]-12-07 10:24:00 Test Item Value Reference Range Interpretation Comments Eosinophils (test code = Eosinophils) 4.6 <=4.0 [place] 685140-12-07 10:24:00 Test Item Value Reference Range Interpretation Comments Basophils (test code = Basophils) 0.7 <=1.0 [place] 685140-12-07 10:24:00 Test Item Value Reference Range Interpretation Comments Neutrophils # (test code = Neutrophils 5.3 1.5-8.1 #) [facility] TylerSwycsxfVWLIUOQOZR5676-14-06 10:24:00 Test Item Value Reference Range Interpretation Comments Lymphocytes # (test code = Lymphocytes 1.0 1.0-5.5 #) [facility] TylerEjkgzkeWWIRPEQAJG4249-31-20 10:24:00 Test Item Value Reference Range Interpretation Comments Monocytes # (test code = Monocytes #) 0.8 <=0.8 [place] 685140-12-07 10:24:00 Test Item Value Reference Range Interpretation Comments Eosinophils # (test code = Eosinophils 0.3 <=0.5 #) [facility] TylerYwmaazxNNMXKBSRRC8386-77-14 10:24:00 Test Item Value Reference Range Interpretation Comments Basophils # (test code = Basophils #) 0.1 <=0.2 [facility] TylerVbrohomJAQWDPANFQ5316-14-36 10:24:00 Test Item Value Reference Range Interpretation Comments WBC (test code = WBC) 7.5 3.7-10.4 [facility] TylerPrdtwucIBYPTZUXOX4065-38-37 10:24:00 Test Item Value Reference Range Interpretation Comments RBC (test code = RBC) 3.85 4.20-5.40 [facility] TylerWbjozidZLFGOXWESE9387-10-50 10:24:00 Test Item Value Reference Range Interpretation Comments Hgb (test code = Hgb) 10.6 12.0-16.0 [place] 685140-12-07 10:24:00 Test Item Value Reference Range Interpretation Comments Hct (test code = Hct) 32.1 36.0-48.0 [facility] TylerAbsqdzyUTKCFKIXWW2899-21-04 10:24:00 Test Item Value Reference Range Interpretation Comments MCV (test code = MCV) 83.5 80.0-98.0 [place] [address]-12-07 10:24:00 Test Item Value Reference Range Interpretation Comments MCH (test code = MCH) 27.7 pg 27.0-31.0 [facility] TylerKpnomxfWXESPKIWXW4426-83-87 10:24:00 Test Item Value Reference Range Interpretation Comments MCHC (test code = MCHC) 33.1 32.0-36.0 [place] 685140-12-07 10:24:00 Test Item Value Reference Range Interpretation Comments RDW (test code = RDW) 16.8 11.5-14.5 [place] 685140-12-07 10:24:00 Test Item Value Reference Range Interpretation Comments Platelet (test code = Platelet) 185 133-450 [facility] TylerZqfesybRATISWTNRG7235-82-27 10:24:00 Test Item Value Reference Range Interpretation Comments MPV (test code = MPV) 8.4 7.4-10.4 [place] 945890-12-06 09:53:13 Test Item Value Reference Range Interpretation Comments Magnesium Lvl (test code = Magnesium 2.2 1.8-2.4 Lvl) [place] 945890-12-06 09:53:13 Test Item Value Reference Range Interpretation Comments Phosphorus (test code = Phosphorus) 2.9 2.5-4.5 [place] 945890-12-06 09:53:13 Test Item Value Reference Range Interpretation Comments Glucose Lvl (test code = Glucose Lvl) 102 70-99 [place] 945890-12-06 09:53:13 Test Item Value Reference Range Interpretation Comments BUN (test code = BUN) 17 7-22 [place] [address]-12-06 09:53:13 Test Item Value Reference Range Interpretation Comments Creatinine Lvl (test code = Creatinine 1.51 0.50-1.40 Lvl) [place] 945890-12-06 09:53:13 Test Item Value Reference Range Interpretation Comments Sodium Lvl (test code = Sodium Lvl) 140 135-145 [place] 945890-12-06 09:53:13 Test Item Value Reference Range Interpretation Comments Potassium Lvl (test code = Potassium 3.5 3.5-5.1 Lvl) [place] [address]-12-06 09:53:13 Test Item Value Reference Range Interpretation Comments Chloride Lvl (test code = Chloride Lvl) 106 95-109 [place] 945890-12-06 09:53:13 Test Item Value Reference Range Interpretation Comments CO2 (test code = CO2) 29 24-32 [place] 945890-12-06 09:53:13 Test Item Value Reference Range Interpretation Comments Calcium Lvl (test code = Calcium Lvl) 8.3 8.5-10.5 [place] 945890-12-06 09:53:13 Test Item Value Reference Range Interpretation Comments AGAP (test code = AGAP) 8.5 10.0-20.0 [facility]2020-12-06 09:53:13 Test Item Value Reference Range Interpretation Comments eGFR (test code = eGFR) 33 [place] [address]-12-06 09:53:13 Test Item Value Reference Range Interpretation Comments WBC (test code = WBC) 8.7 3.7-10.4 [place] [address]-12-06 09:53:13 Test Item Value Reference Range Interpretation Comments RBC (test code = RBC) 3.96 4.20-5.40 [place] [address]-12-06 09:53:13 Test Item Value Reference Range Interpretation Comments Hgb (test code = Hgb) 10.7 12.0-16.0 [place] [address]-12-06 09:53:13 Test Item Value Reference Range Interpretation Comments Hct (test code = Hct) 32.8 36.0-48.0 [place] [address]-12-06 09:53:13 Test Item Value Reference Range Interpretation Comments MCV (test code = MCV) 83.0 80.0-98.0 [place] [address]-12-06 09:53:13 Test Item Value Reference Range Interpretation Comments MCH (test code = MCH) 26.9 pg 27.0-31.0 [place] [address]-12-06 09:53:13 Test Item Value Reference Range Interpretation Comments MCHC (test code = MCHC) 32.4 32.0-36.0 [place] [address]-12-06 09:53:13 Test Item Value Reference Range Interpretation Comments RDW (test code = RDW) 16.5 11.5-14.5 [place] [address]-12-06 09:53:13 Test Item Value Reference Range Interpretation Comments Platelet (test code = Platelet) 157 133-450 [facility] TylerTtixgkjZAMOYKXWEM9405-70-59 09:53:13 Test Item Value Reference Range Interpretation Comments MPV (test code = MPV) 7.5 7.4-10.4 [place] [address]-12-06 09:53:13 Test Item Value Reference Range Interpretation Comments Neutrophils # (test code = Neutrophils 7.2 1.5-8.1 #) [facility] TylerAxarhivGUUZWKAPMX2508-99-88 09:53:13 Test Item Value Reference Range Interpretation Comments Lymphocytes # (test code = Lymphocytes 0.9 1.0-5.5 #) [facility] TylerMjgldobKRMMNQZSXT4022-41-13 09:53:13 Test Item Value Reference Range Interpretation Comments Monocytes # (test code = Monocytes #) 0.5 <=0.8 [place] [address]-12-06 09:53:13 Test Item Value Reference Range Interpretation Comments Basophils # (test code = Basophils #) 0.1 <=0.2 [address]12-06 09:53:13 Test Item Value Reference Range Interpretation Comments Segs (test code = Segs) 83.0 45.0-75.0 [place] 685140-12-06 09:53:13 Test Item Value Reference Range Interpretation Comments Bands (test code = Bands) 0.0 <=11.0 [place] 685140-12-06 09:53:13 Test Item Value Reference Range Interpretation Comments Lymphocytes (test code = Lymphocytes) 10.0 20.0-40.0 [place] 685140-12-06 09:53:13 Test Item Value Reference Range Interpretation Comments Monocytes (test code = Monocytes) 6.0 2.0-12.0 [place] [address]-12-06 09:53:13 Test Item Value Reference Range Interpretation Comments Basophils (test code = Basophils) 1.0 <=1.0 [place] [address]-12-06 09:53:13 Test Item Value Reference Range Interpretation Comments Atypical Lymphs (test code = Atypical 0.0 Lymphs) [place] 685140-12-06 09:53:13 Test Item Value Reference Range Interpretation Comments RBC Morph (test code = Normal (09/05/20 3:53 RBC Morph) AM) [place] 685140-12-06 09:53:13 Test Item Value Reference Range Interpretation Comments Plt Morph (test code = Normal (09/05/20 3:53 Plt Morph) AM) [facility]nbgasjJXUDHDHHCS6553-38-64 09:53:00 Test Item Value Reference Range Interpretation Comments Coronavirus (COVID-19) Not Detected (09/05/20 JONATHAN (test code = 3:53 AM) Coronavirus (COVID-19) JONATHAN) [facility] [id number] 04:34:00 Test Item Value Reference Range Interpretation Comments Troponin-I (test code = Troponin-I) no gt <=0.40 [facility]2020-12-06 04:34:00 Test Item Value Reference Range Interpretation Comments Glucose Lvl (test code = Glucose Lvl) 125 70-99 [facility]2020-12-06 04:34:00 Test Item Value Reference Range Interpretation Comments BUN (test code = BUN) 17 7-22 [place] 945890-12-06 04:34:00 Test Item Value Reference Range Interpretation Comments Creatinine Lvl (test code = Creatinine 1.51 0.50-1.40 Lvl) [facility]2020-12-06 04:34:00 Test Item Value Reference Range Interpretation Comments Sodium Lvl (test code = Sodium Lvl) 142 135-145 [facility]2020-12-06 04:34:00 Test Item Value Reference Range Interpretation Comments Potassium Lvl (test code = Potassium 4.0 3.5-5.1 Lvl) [facility]2020-12-06 04:34:00 Test Item Value Reference Range Interpretation Comments Chloride Lvl (test code = Chloride Lvl) 108 95-109 [facility]2020-12-06 04:34:00 Test Item Value Reference Range Interpretation Comments CO2 (test code = CO2) 30 24-32 [facility]2020-12-06 04:34:00 Test Item Value Reference Range Interpretation Comments Calcium Lvl (test code = Calcium Lvl) 7.8 8.5-10.5 [facility]2020-12-06 04:34:00 Test Item Value Reference Range Interpretation Comments AGAP (test code = AGAP) 8.0 10.0-20.0 [place] 945890-12-06 04:34:00 Test Item Value Reference Range Interpretation Comments eGFR (test code = eGFR) 33 [facility] TylerSpelpknCYBHZYRQZM3398-84-50 04:34:00 Test Item Value Reference Range Interpretation Comments WBC X 10x3 (test code = WBC X 10x3) 9.7 3.7-10.4 [facility] TylerWqfodteEBWYCGCKYE2030-69-70 04:34:00 Test Item Value Reference Range Interpretation Comments RBC X 10x6 (test code = RBC X 10x6) 3.96 4.20-5.40 [place] [id number] 04:34:00 Test Item Value Reference Range Interpretation Comments Hgb (test code = Hgb) 10.6 12.0-16.0 [place] [address]-12-06 04:34:00 Test Item Value Reference Range Interpretation Comments Hct (test code = Hct) 32.6 36.0-48.0 [id number] 04:34:00 Test Item Value Reference Range Interpretation Comments MCV (test code = MCV) 82.3 80.0-98.0 [place] [id number] 04:34:00 Test Item Value Reference Range Interpretation Comments MCH (test code = MCH) 26.6 pg 27.0-31.0 [place] [id number] 04:34:00 Test Item Value Reference Range Interpretation Comments MCHC (test code = MCHC) 32.4 32.0-36.0 [place] [address]-12-06 04:34:00 Test Item Value Reference Range Interpretation Comments RDW (test code = RDW) 16.8 11.5-14.5 [place] [address]-12-06 04:34:00 Test Item Value Reference Range Interpretation Comments Platelet (test code = Platelet) 178 133-450 [id number] 04:34:00 Test Item Value Reference Range Interpretation Comments MPV (test code = MPV) 8.0 7.4-10.4 [place] [address]-12-06 04:34:00 Test Item Value Reference Range Interpretation Comments PT (test code = PT) 14.7 s 12.0-14.7 [place] [address]-12-06 04:34:00 Test Item Value Reference Range Interpretation Comments INR (test code = INR) 1.14 1 0.85-1.17 [place] [address]-12-06 04:34:00 Test Item Value Reference Range Interpretation Comments PTT (test code = PTT) 31.2 s 22.9-35.8 [place] [address]-12-06 04:34:00 Test Item Value Reference Range Interpretation Comments Segs (test code = Segs) 73.9 45.0-75.0 [place] [id number] 04:34:00 Test Item Value Reference Range Interpretation Comments Lymphocytes (test code = Lymphocytes) 11.0 20.0-40.0 [place] 685140-12-06 04:34:00 Test Item Value Reference Range Interpretation Comments Monocytes (test code = Monocytes) 13.6 2.0-12.0 [place] 685140-12-06 04:34:00 Test Item Value Reference Range Interpretation Comments Eosinophils (test code = Eosinophils) 0.7 <=4.0 [place] 685140-12-06 04:34:00 Test Item Value Reference Range Interpretation Comments Basophils (test code = Basophils) 0.8 <=1.0 [place] 685140-12-06 04:34:00 Test Item Value Reference Range Interpretation Comments Neutrophils # (test code = Neutrophils 7.2 1.5-8.1 #) [place] 685140-12-06 04:34:00 Test Item Value Reference Range Interpretation Comments Lymphocytes # (test code = Lymphocytes 1.1 1.0-5.5 #) [place] [id number] 04:34:00 Test Item Value Reference Range Interpretation Comments Monocytes # (test code = Monocytes #) 1.3 <=0.8 [place] 685140-12-06 04:34:00 Test Item Value Reference Range Interpretation Comments Eosinophils # (test code = Eosinophils 0.1 <=0.5 #) [place] 685140-12-06 04:34:00 Test Item Value Reference Range Interpretation Comments Basophils # (test code = Basophils #) 0.1 <=0.2 [facility] SHOULDER 2+ VW [id number] 17:54:27 Comminuted distal clavicle fracture. EXAM: XR SHOULDER 2+ VW RIGHT HISTORY: shoulder pain COMPARISON: None. FINDINGS: A comminuted fracture of the distal clavicle is seen. There is resultantmild widening of the acromioclavicular joint. Alignment is maintained atthe glenohumeral joint which exhibits osteoarthritic changes manifested byjoint space narrowing and osteophytosis. Osteopenia is suggested.At herosclerotic calcifications are present in the aortic arch. [facility] - 06/28/2020 12:55 PM CDTEXAM:XR SHOULDER 2+ VW RIGHTHISTORY:shoulder pain COMPARISON:None.FINDINGS: A comminuted fracture of the distal clavicle is seen. There is resultantmild widening of the acromioclavicular joint. Alignment is maintained atthe glenohumeral joint which exhibits osteoarthritic changes manifested byjoint space narrowing and osteophytosis. Osteopenia is suggested.Atherosclerotic calcifications are present in the aortic arch.IMPRESSIONComminuted distal clavicle fracture. [facility]W [id number] 17:53:09 No acute bony abnormality. EXAM: XR FOREARM 2 VW RIGHT HISTORY: right arm pain COMPARISON: None. FINDINGS: Osteopenia is noted. 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 Mild osteoarthritic changes are present at theelbow. No acute fracture or dislocation is seen. [facility] - 06/28/2020 12:54 PM CDTEXAM:XR FOREARM 2 VW RIGHTHISTORY:right arm pain COMPARISON:None.FINDINGS: Osteopenia is noted. 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 Mild osteoarthritic changes are present at theelbow. No acute fracture or dis location is seen.IMPRESSIONNo acute bony abnormality.[facility]
[2023-08-21] MEDS ORDERED: FENTANYL CITR 100 MCG/2 ML ONE (19:20)
--- NOTE | 2023-08-21 19:37 | RAD REPORT ---
EXAM DESCRIPTION: CT - Head C Spine Cap Wo Con - 08/21/2023 7:17 pm CLINICAL HISTORY: fall COMPARISON: No comparisons TECHNIQUE: CT head without contrast. CT cervical spine without contrast with coronal and sagittal reformatted images. CT chest, abdomen and pelvis with coronal and sagittal reformatted images of the spine. All CT scans are performed using dose optimization technique as appropriate and may include automated exposure control or mA/KV adjustment according to patient size. FINDINGS: CT HEAD WITHOUT CONTRAST: No intracranial hemorrhage, hydrocephalus or extra-axial fluid collection. No acute large vascular te rritory infarct. Moderate chronic small vessel ischemic changes. The paranasal sinuses and mastoids are clear. The calvarium is intact. CT CERVICAL SPINE WITHOUT CONTRAST: No fracture or subluxation. Multilevel degenerative changes are present in the spine. The prevertebral soft tissues are normal in thickness.Varying degrees of neural foraminal narrowing n oted. CT CHEST, ABDOMEN, PELVIS: Thorax: Chest Wall: No abnormal mass Lungs: No acute abnormality. Pleura: No effusions or pneumothorax. Coco/Mediastinum: No lymphadenopathy. Aorta/Pulmonary Arteries: Unremarkable Heart: Normal size. Coronary artery calcifications. Trace pericardial effusion . Abdomen/Pelvis: Liver: No acute abnormality or suspicious lesions. Biliary: Cholecystectomy. Extrahepatic biliary duct dilatation is likely related to the postcholecyst ectomy state . Stomach: No significant focal abnormality. Duodenum: No significant focal abnormality. Pancreas: No significant abnormality. Spleen: No significant abnormality. Adrenal: No suspicious lesions. Kidney/ureter: No hydronephrosis. No renal calculi. Too small to characterize and/or benign appearing renal lesions are noted. Renal cortical thinning. Retroperitoneum: No retroperitoneal adenopathy. Vascular: No aneurysm. Atherosclerosis . Bowel: Moderate stool.. Mild stranding and wall thickening at the splenic flexure. Moderate stool. No bowel obstruction. Peritoneum: No ascites or free air. Bladder: Decompressed via Miller catheter . Reproductive: No adnexal masses. Hysterectomy Bones: Anterolisthesis of L4 on L5. Fusion and L1-2 may be congenital or developmental. Remote rib fr actures . Other: n/a IMPRESSION: Negative for acute traumatic findings. Short segment wall thickening and stranding at the splenic flexure concerning for a colitis. This cou ld represent ischemic colitis given the distribution. The patient is asymptomatic, consider colonosco py to further evaluate.
--- NOTE | 2023-08-21 20:12 | EDPHYS ---
Physician Documentation [facility] Name: Radha Bentley Age: 82 yrs Sex: Female : 1940 Arrival Date: 08/21/2023 Time: 18:52 Bed 5 Private MD: ED Physician True Hobbs HPI: 08/22 01:48 This 82 yrs old Female presents to ER via EMS with complaints of walking dogs and fell snw backward onto concrete, no LOC. 01:48 Details of fall: The patient fell from an upright position, while walking. Onset: The snw symptoms/episode began/occurred suddenly. Associated injuries: The patient sustained injury to the head, upper back injury, injury to the low back. Severity of symptoms: At their worst the symptoms were moderate. The patient has experienced similar episodes in the past. It is unknown whether or not the patient has recently seen a physician. Historical: - Allergies: 08/21 18:58 Avelox; hb 18:58 Band-aid adhesive; hb - PMHx: 18:58 ADD/ADHD; COPD; Heart Murmur; Hyperlipidemia; Hypertension; Hypothyroidism; kidney hb disease; - PSHx: 18:58 bilateral knee replacement; breast reduction; Cholecystectomy; Shoulder replacment; hb - Immunization history:: Adult Immunizations up to date. - Social history:: Smoking status: Patient denies any tobacco usage or history of. ROS: 08/22 01:46 Eyes: Negative for injury, pain, redness, and discharge, ENT: Negative for injury, snw pain, and discharge, Neck: Negative for injury, pain, and swelling, Cardiovascular: Negative for chest pain, palpitations, and edema, Respiratory: Negative for shortness of breath, cough, wheezing, and pleuritic chest pain, Abdomen/GI: Negative for abdominal pain, nausea, vomiting, diarrhea, positive for constipation, : Negative for injury, bleeding, discharge, and swelling, MS/Extremity: Negative for injury and deformity, Skin: Negative for injury, rash, and discoloration, Neuro: Negative for headache, weakness, numbness, tingling, and seizure, Psych: Negative for depression, anxiety, suicide ideation, homicidal ideation, and hallucinations, Constitutional: Positive for body aches, Back: Positive for injury or acute deformity, pain at rest, pain with movement, Exam: 01:47 Constitutional: This is a well developed, well nourished patient who is awake, alert, snw and in no acute distress. 01:47 Eyes: Pupils equal round and reactive to light, extra-ocular motions intact. Lids and lashes normal. Conjunctiva and sclera are non-icteric and not injected. Cornea within normal limits. Periorbital areas with no swelling, redness, or edema. ENT: Nares patent. No nasal discharge, no septal abnormalities noted. Tympanic membranes are normal and external auditory canals are clear. Oropharynx with no redness, swelling, or masses, exudates, or evidence of obstruction, uvula midline. Mucous membranes moist. Neck: Trachea midline, no thyromegaly or masses palpated, and no cervical lymphadenopathy. Supple, full range of motion without nuchal rigidity, or vertebral point tenderness. No Meningismus. Chest/axilla: Normal chest wall appearance and motion. Nontender with no deformity. No lesions are appreciated. Cardiovascular: Regular rate and rhythm with a normal S1 and S2. No gallops, murmurs, or rubs. Normal PMI, no JVD. No pulse deficits. Respiratory: Lungs have equal breath sounds bilaterally, clear to auscultation and percussion. No rales, rhonchi or wheezes noted. No increased work of breathing, no retractions or nasal flaring. Abdomen/GI: Soft, non-tender, with normal bowel sounds. No distension or tympany. No guarding or rebound. No evidence of tenderness throughout. Skin: Warm, dry with normal turgor. Normal color with no rashes, no lesions, and no evidence of cellulitis. MS/ Extremity: Pulses equal, no cyanosis. Neurovascular intact. Full, normal range of motion. Neuro: Awake and alert, GCS 15, oriented to person, place, time, and situation. Cranial nerves II-XII grossly intact. Motor strength 5/5 in all extremities. Sensory grossly intact. Cerebellar exam normal. Normal gait. Psych: Awake, alert, with orientation to person, place and time. Behavior, mood, and affect are within normal limits. 01:47 Head/face: Noted is contusion, of the right side of the back of head, 01:47 Back: pain, that is moderate, of the low back area, Vital Signs: 08/21 18:56 BP 154 / 70; Pulse 68; Resp 17; Temp 98.2(TE); Pulse Ox 93% on R/A; Weight 67.59 kg; hb Height 4 ft. 11 in. ; Pain 9/10; 20:32 BP 138 / 75; Pulse 87; Resp 18; Pulse Ox 97% on R/A; mb9 18:56 Body Mass Index 30.09 (67.59 kg, 149.86 cm) hb 18:56 Pain Scale: Adult hb MDM: 18:56 Patient medically screened. snw 08/22 01:47 Differential diagnosis: closed head injury, contusion, fracture. Data reviewed: vital snw signs, nurses notes, radiologic studies, CT scan. I considered the following discharge prescriptions or medication management in the emergency department Medications were administered in the Emergency Department. See MAR. Historians other than the Patient: EMS: [place]. Counseling: I had a detailed discussion with the patient and/or guardian regarding the historical points, exam findings, and any diagnostic results supporting the discharge/admit diagnosis, radiology results, the need for outpatient follow up, for definitive care, to return to the emergency department if symptoms worsen or persist or if there are any questions or concerns that arise at home. Special discussion: I have referred the patient to see his PCP for further evaluation of high blood pressure. Based on the patient's history, exam and DX evaluation, there is no indication for emergent intervention or inpatient TX. It is understood by the patient/guardian that if the SXs persist or worsen they need to return immediately for re-evaluation. Based on the history and exam findings, there is no indication for further emergent testing or inpatient evaluation. I discussed with the patient/guardian the need to see the primary care provider for further evaluation of the symptoms. 08/21 18:56 Order name: CT Traumagram (Head C Spine CAP wo con); Complete Time: 19:40 snw Administered Medications: 08/21 19:08 Drug: fentaNYL (PF) IM 25 mcg IM once Route: IM; Site: right deltoid; mb9 Disposition Summary: 08/21/23 20:12 Discharge Ordered Notes: Location: Home snw Condition: Stable snw Diagnosis - Fall on same level from slipping, tripping and stumbling with subsequent striking snw against object - Unspecified injury of head, initial encounter snw - Constipation snw Followup: snw - With: Emergency Department - When: As needed - Reason: Worsening of condition Followup: snw - With: Private Physician - When: 2 - 3 days - Reason: Recheck today's complaints, Continuance of care, Re-evaluation by your physician Discharge Instructions: - Discharge Summary Sheet snw - Constipation, Adult snw - Head Injury, Adult snw - Fall Prevention in the Home, Adult snw Forms: - Medication Reconciliation Form snw - Thank You Letter snw - Antibiotic Education snw - Prescription Opioid Use snw - Patient Portal Instructions snw - Leadership Thank You Letter snw Prescriptions: - bisacodyl 5 mg Oral tablet, delayed release (enteric coated) - take 2 tablet ORAL route 2 times per day for 4 days; 16 tablet; Refills: 0, snw Product Selection Permitted Signatures: Dispatcher [employer] EDMariela Goodson, AUTOMOTIVE SERVICE TECHNICIAN-C AUTOMOTIVE SERVICE TECHNICIAN-Csnw Mesha Herrera, RN RN Mayi Arango RN RN mb9
--- NOTE | 2023-08-21 20:12 | ER ---
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 Negative LOC. Not taking blood thinners. Coronavirus screen: At this time, the client does not indicate any symptoms associated with coronavirus-19. Ebola Screen: No symptoms or risks identified at this time. Initial Sepsis Screen: Does the patient meet any 2 criteria? No. Patient's initial sepsis screen is negative. Does the patient have a suspected source of infection? No. Patient's initial sepsis screen is negative. Risk Assessment: Do you want to hurt yourself or someone else? Patient reports no desire to harm self or others. Onset of symptoms was August 21, 2023. 18:56 Method Of Arrival: EMS: [facility] hb 18:56 Acuity: VAIBAHV 3 hb Triage Assessment: 18:59 General: Appears in no apparent distress. Behavior is calm, cooperative. Pain: Pain hb currently is 9 out of 10 on a pain scale. Neuro: Level of Consciousness is awake, alert, obeys commands, Oriented to person, place, time, situation. Cardiovascular: Patient's skin is warm and dry. Respiratory: Respiratory effort is even, unlabored, Respiratory pattern is regular, symmetrical. Historical: - Allergies: 18:58 Avelox; hb 18:58 Band-aid adhesive; hb - PMHx: 18:58 ADD/ADHD; COPD; Heart Murmur; Hyperlipidemia; Hypertension; Hypothyroidism; kidney hb disease; - PSHx: 18:58 bilateral knee replacement; breast reduction; Cholecystectomy; Shoulder replacment; hb - Immunization history:: Adult Immunizations up to date. - Social history:: Smoking status: Patient denies any tobacco usage or history of. Screenin:00 [facility] ED Fall Risk Assessment (Adult) History of falling in the last 3 months, mb9 including since admission Yes- single mechanical fall (1 pt) Confusion or Disorientation No (0 pts) Intoxicated or Sedated No (0 pts) Impaired Gait No (0 pts) Mobility Assist Device Used No (0 pt) Altered Elimination No (0 pt) Score/Fall Risk Level 0 - 2 = Low Risk Oriented to surroundings, Maintained a safe environment, Educated pt \T\ family on fall prevention, incl call for assistance when getting out of bed. Abuse screen: Denies threats or abuse. Nutritional screening: No deficits noted. Tuberculosis screening: No symptoms or risk factors identified. Assessment: 19:00 Reassessment: see triage assessment. mb9 20:32 Reassessment: No changes from previously documented assessment. Patient and/or family mb9 updated on plan of care and expected duration. Pain level reassessed. Patient is alert, oriented x 3, equal unlabored respirations, skin warm/dry/pink. Vital Signs: 18:56 BP 154 / 70; Pulse 68; Resp 17; Temp 98.2(TE); Pulse Ox 93% on R/A; Weight 67.59 kg; hb Height 4 ft. 11 in. ; Pain 9/10; 20:32 BP 138 / 75; Pulse 87; Resp 18; Pulse Ox 97% on R/A; mb9 18:56 Body Mass Index 30.09 (67.59 kg, 149.86 cm) hb 18:56 Pain Scale: Adult hb ED Course: 18:55 Patient arrived in ED. snw 18:55 Mariela Juárez F[facility]-C [facility] snw 18:55 True Hobbs MD is Attending Physician. snw 18:58 Triage completed. hb 18:58 Arm band placed on. hb 19:00 Placed in gown. Bed in low position. Call light in reach. Side rails up X 1. Client mb9 placed on continuous cardiac and pulse oximetry monitoring. NIBP monitoring applied. Door closed. Noise minimized. Warm blanket given. 19:01 No provider procedures requiring assistance completed. mb9 19:03 Fabien Cosme RN is Primary Nurse. jj7 19:19 CT Traumagram (Head C Spine CAP wo con) In Process Unspecified. EDMS 20:33 Patient did not have IV access during this emergency room visit. mb9 Administered Medications: 19:08 Drug: fentaNYL (PF) IM 25 mcg IM once Route: IM; Site: right deltoid; mb9 Medication: 19:01 VIS not applicable for this client. mb9 Outcome: 20:12 Discharge ordered by MD. hanley 20:33 Discharged to home via wheelchair, with family, mb9 20:33 Condition: stable 20:33 Discharge instructions given to patient, family, Instructed on discharge instructions, follow up and referral plans. Demonstrated understanding of instructions, follow-up care, medications, Prescriptions given X 1, 20:33 Patient left the ED. 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 Negative LOC. hb
[2023-08-21 20:45] VITALS: TEMP 98.2
[2023-08-21 20:47] VITALS: BP 138/75; O2SAT 97
== END 2023-08-21 20:33 | disposition home or self-care (01) ==
LOC: ER 18:52
DX: S09.90XA Unspecified injury of head, initial encounter (principal); W01.10XA Fall on same level from slipping, tripping and stumbling with subsequent striking against unspecified object, initial encounter; Y93.K1 Activity, walking an animal; K59.00 Constipation, unspecified; I10 Essential (primary) hypertension; J44.9 Chronic obstructive pulmonary disease, unspecified; E78.5 Hyperlipidemia, unspecified; E03.9 Hypothyroidism, unspecified; Z88.3 Allergy status to other anti-infective agents; Z91.09 Other allergy status, other than to drugs and biological substances
CPT/HCPCS: 70450; 71250; 72125; 96372; 99284; J3010

== ENCOUNTER 2023-08-22 15:12 | Emergency (ER) | payer MEDICARE ==
--- OUTSIDE RECORDS SUMMARY | 2023-08-22 16:15 | XMS REPORT | Continuity of Care Document ---
:1940 Author Organization [facility] t Address [address] [place] [address] Care Team Providers Name Role Phone [place] Primary Care Physician Anurag Sanderson Attending Clinician Unavailable Cora Thomson Attending Clinician Dealinda_Maria G Attending Clinician Unavailable MELONY FALK Attending Clinician Unavailable Melony Falk Attending Clinician Al Sudani, Najlaa Attending Clinician GC_GCBZW_Kadiyala_S Attending Clinician Unavailable Glenys Claros Attending Clinician Alisa Sanders Attending Clinician EMMANUEL VELEZ Attending Clinician Unavailable Emmanuel Velez Attending Clinician PEREZ MORENO Attending Clinician Unavailable Perez Moreno Attending Clinician Doctor Unassigned, Magazine Attending Clinician Unavailable Allegra Laura Attending Clinician CARLY SINCLAIR Attending Clinician Unavailable Carly Sinclair DO Attending Clinician Canales_Keesha Attending Clinician Unavailable Jeffrey Garcia Attending Clinician Olivia-Mbgegeo_A_AH Attending Clinician Unavailable Caitlyn Jerez Attending Clinician [phone] Vincent Soni Attending Clinician Sariah Becerra Attending Clinician Maria Luisa Rust NP Attending Clinician Timi Aguirre MD Attending Clinician TIMI AGUIRRE Attending Clinician Unavailable Physician, No Primary or Family Admitting Clinician Unavailchelly hairston Deavers_Maria G Admitting Clinician Unavailable AL SUDANI, NAJLAA Admitting Clinician Unavailable Al Sudani, Najlaa Admitting Clinician GC_GCBZW_Kadiyala_S Admitting Clinician Unavailable AYO CASTAÑEDA Admitting Clinician [...] OON [id number] 2020 00:00:00 [employer] [place] [id number] 2019 CLASSIC/VALUE 00:00:00 [id number] 2020 (MEDICARE 00:00:00 REPLACEMENT HMO) [employer] OF [place] - [id number] 2019 [place] (MEDICARE 00:00:00 REPLACEMENT/ADVANTA GE - HMO) Problems Condition Condition Condition Status Onset Resolution Last Treating Co mments Source Name Details Category Date Date Treatment Clinician Date FALL FALL Diagnosis Active 2022-102023-07-12 Mem oria Active 0 03:03:00 l 07/12/2023 00:00: Ajay gorman 00 [place] ACCIDENTAL ACCIDENTA Diagnosis Active 2022-102023-07-27 Memoria FALL, CHF L FALL, 0- 21:55:00 l EXACERBATI CHF 00:00: Ajay gorman ON EXACERBATI 00 ON Active 07/12/2023 [place] SUBARACHMO SUBARACHM Diagnosis Active 2022-12-11 Memoria ID OID 11-25 21:45:00 l HEMORRHAGE HEMORRHAGE 23:05: He rmann Active 00 11/25/2022 [facility] Acute Acute Diagnosis Active 2022-11-25 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 00 (disorder) (disorder) Active 11/22/2022 Diagnosis 11/25/2022 [facility] SUBARACHNO Diagnosis Active 2022-11-23 Memoria ID SUBARACHNO 2- 15:38:00 l HEMORRHAGE ID 00:00: Ajay gorman HEMORRHAGE 00 Active 11/20/2022 [facility] FALL FROM FALL FROM Diagnosis Active 2019-102020-09-16 Memoria STANDING STANDING 2- 21:55:00 l Active 00:00: Raul 09/04/2020 [facility] S/P FALL, S/P FALL, Diagnosis Active 2019-102020-09-05 Memoria FRACTURED FRACTURED 2 00:45:00 l RIGHT RIGHT 00:00: Raul WRIST, WRIST, 00 HEAD HE HEAD HE Active 09/04/2020 [facility] [id number] 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 - [facility] replacemen [facility] 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 [facility] [id number] Primary Problem Comm on osteoarthr Spirit itis, - [facility] right [facility] foot [facility] [id number] Primary Problem 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 [id number] Acute pain Problem Com mon of right Spirit shoulder - [facility] [id number] 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 [facility] [id number] Arthritis Problem Com mon of hand Spirit - [facility] Traumatic Traumatic Problem 2022-12-04 Memoria subdural subdural 08:08:28 l hemorrhage hemorrhage He rmann with loss with loss of of consciousn consciousn ess status ess status unknown, unknown, initial initial encounter encounter 12/04/2022 [facility] Intracrani Intracran Diagnosis 2022-12-02 Memoria al injury ial injury 04:21:54 l with loss with loss Herm bernie of of consciousn consciousn ess ess (disorder) (disorder) Diagnosis 12/02/2022 [facility] 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 04:20:50 l in in [place] cervical cervical region region (disorder) (disorder) Active Problem 07/23/2023 [facility] TRAUM TRAUM Diagnosis Active 2022-12-11 Mem oria SUBDR HEM SUBDR HEM 21:45:00 l WITH LOC WITH LOC Ajay n STATUS STATUS UNKNOWN, UNKNOWN, Active [facility] Hypertensi Hypertens Problem Active 2023-07-23 Memoria ve lyle 04:20:50 l disorder, disorder, Herm bernie systemic systemic arterial arterial (disorder) (disorder) Active Problem 07/23/2023 [facility] Hyperlipid Hyperlipi Problem Active 2023-07-23 Memoria emia demia 04:20:50 l (disorder) (disorder) He rmann Active Problem 07/23/2023 [facility] Hypothyroi Hypothyro Problem Active 2023-07-23 Memoria dism idism 04:20:50 l (disorder) (disorder) He rmann Active Problem 07/23/2023 [facility] Memory Memory Problem Active 2023-07-23 Jose Francisco zhagn impairment impairment 04:20:50 l (finding) (finding) Herm bernie Active Problem 07/23/2023 [facility] Morbid Morbid Problem Active 2023-07-23 Jose Francisco zhang obesity obesity 04:20:50 l (disorder) (disorder) He rmann Active Problem 07/23/2023 [facility] Recurrent Recurrent Problem Active 2023-07-23 Memoria falls falls 04:20:50 l (finding) (finding) Herm bernie Active Problem 07/23/2023 [facility] Transient Transient Problem Active 2023-07-23 Memoria ischemic ischemic 04:20:50 l attack attack [place] (disorder) (disorder) Active Problem 07/23/2023 [facility] Tremor Tremor Problem Active 2023-07-23 Jose Francisco zhang (finding) (finding) 04:20:50 l Active Raul Problem 07/23/2023 [facility] Chronic Chronic Problem Active 2023-07-23 Me moria kidney kidney 04:20:50 l disease disease Raul (disorder) (disorder) Active Problem 07/23/2023 [facility] 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 Raul disease disease (disorder) (disorder) Active Problem 07/23/2023 [facility] Depressive Depressiv Problem Active 2023-07-23 Memoria disorder e disorder 04:20:50 l (disorder) (disorder) He rmann Active Problem 07/23/2023 [facility] 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 04:20:50 l (disorder) (disorder) He rmann Active Problem 07/23/2023 [facility] UNSPECIFIE UNSPECIFI Diagnosis Active 2023-07-27 Memoria D FALL, ED FALL, 21:55:00 l INITIAL INITIAL Raul ENCOUNTER ENCOUNTER Active [facility] Unspecifie Problem 2023-07-16 M emoria d fall, Unspecifie 12:34:50 l initial d fall, Raul encounter initial encounter 07/16/2023 [facility] Fall Fall Diagnosis 2023-07-23 Mem oria (finding) (finding) 04:20:50 l Diagnosis [place] 07/23/2023 [facility] 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 04:20:50 l disorder disorder Ajay n (disorder) (disorder) Active Problem 07/23/2023 [facility] 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 4 (disorder) (disorder) Active Problem 07/23/2023 [facility] Obese Obese Problem Active 2023-07-23 Jose Francisco zhang class I class I 04:20:50 l (finding) (finding) Herm bernie Active Problem 07/23/2023 [facility] HEART HEART Diagnosis Active 2023-07-27 Mem oria FAILURE, FAILURE, 21:55:00 l UNSPECIFIE UNSPECIFIE He rmann D D Active [facility] History of Past Illness Condition Condition Condition Status Onset Resolution Last Treating Co mments Source Name Details Category Date Date Treatment Clinician Date Spinal Spinal Problem 2022-12-04 2022-12-04 Memoria stenosis, stenosis, 3 08:08:28 08:08:28 l cervical cervical 16:54: Ajay gorman region region 00 11/29/2022 12/04/2022 [facility] Repeated Repeated Problem 2022-12-04 2022-12-04 Memoria falls falls - 08:08:28 08:08:28 l 11/29/2022 16:45: Ajay gorman 12/04/2022 00 [facility] Chronic Chronic Problem 2022-11-27 2022-11-27 Memoria kidney kidney 11-22 10:42:07 10:42:07 l disease, disease, 19:17: Ajay gorman unspecifie unspecifie 00 d d 11/22/2022 11/27/2022 [facility] Allergies, Adverse Reactions, Alerts Allergy Allergy Status Severity Reaction(s) Onset Inactive Treating Comm ents Source Name Type Date Date Clinician ADHESIVE DRUG Active Med Rash Univers TAPE-DEBBY 8-30 ity of ICONES 00:00: [place] [address] [facility] [address] MOXIFLOX DRUG Active Med Rash Univers ACIN HCL INGREDI 8-30 ity of 00:00: [place] [address] [facility] Adhesive Propensi Active Rash Univer s Tape-Debby ty to 8-30 ity of icones adverse 00:00: [place] reaction 00 Medical s to Branch drug Moxiflox Propensi Active Rash Univer s acin Hcl ty to 8-30 ity of adverse 00:00: [place] reaction 00 Medical s to Branch drug moxiflox DA Active U [facility] acin HCl 2-15 [place] 00:00: [address] BANDAIDS DA Active [place] [facility] ADHESIVE 2-15 [place] 00:00: [address] Avelox Allergy Active Rash [facility] substanc Group e Avelox Avelox Active Memoria l Raul Social History Social Habit Start Date Stop Date Quantity Comments Source History of Common Spirit - Tobacco Use [facility] Sex Assigned At Common Sp cristian - [facility] ASSERTION [facility] Alcohol Comment Occasional [facility] Alcohol intake 2022-08-10 2022-08-10 0 /d University of 00:00:00 00:00:00 [facility] Exposure to 2022-07-26 2022-08-05 Not sure University of SARS-CoV-2 00:00:00 12:21:00 [facility] (event) [place] Social History 2020-09-05 2020-09-05 [facility] najera 14:31:45 14:31:45 Tobacco use and 2020-06-28 2020-06-28 Never used Universit y of exposure 00:00:00 00:00:00 [facility] Smoking Status Start Date Stop Date Source Tobacco smoking status 2023-07-12 20:34:05 2023-07-12 20:34:05 Keesha Carter Never smoked tobacco [facility] Medications Ordered Filled Start Stop Current Ordering Indication Dosage Frequency Signature Comments Components Source Medication Medication Date Date Medication? Clinician (SIG) Name Name Stefan Jesus 2022-10 Yes 3.125 mg = Memoria mg oral 0-20 1 tab, PO, l tablet 17:29: BID, # 60 Ajay n 00 tab, 0 Refill(s), [facility]acy: [id number], 152.4, cm, 07/16/23 5:09:00 CDT, Height, 76.7, kg, 07/16/23 5:09:00 CDT, Weight Lasix 40 mg 2022-10 Yes 40 mg = 1 M emoria oral tablet 0-20 tab, PO, l 17:29: Daily, # [place] 00 30 tab, 0 Refill(s), Pharmacy: [id number], 152.4, cm, 07/16/23 5:09:00 CDT, Height, 76.7, kg, 07/16/23 5:09:00 CDT, Weight Coreg 3.Elena 2022-10 Yes 3.125 mg = Memoria mg oral 0-20 1 tab, PO, l tablet 17:29: BID, # 60 Ajay n 00 tab, 0 Refill(s), Pharmacy: [id number], 152.4, cm, 07/16/23 5:09:00 CDT, Height, 76.7, kg, 07/16/23 5:09:00 CDT, Weight Lasix 40 mg 2022-10 Yes 40 mg = 1 M emoria oral tablet 0-20 tab, PO, l 17:29: Daily, # [place] 00 30 tab, 0 Refill(s), [facility]: [id number], 152.4, cm, 07/16/23 5:09:00 CDT, Height, 76.7, kg, 07/16/23 5:09:00 CDT, Weight escitalopra 2022-10 Yes 20 mg = 1 M emoria m 20 mg 0-16 tab, PO, l oral tablet 16:21: Q12H Ajay n gabapentin 2022-10 Yes 100 mg = 1 M emoria 100 mg oral 0-16 cap, PO, l capsule 16:21: Bedtime rOPINIRole 2022-10 Yes 4 mg = 1 Mem oria 4 mg oral 0-16 tab, PO, l tablet 16:21: Q12H buPROPion 2022-10 Yes 150 mg = 1 Me moria 150 mg/24 0-16 tab, PO, l hours (XL) 16:21: Q12H Raul oral 00 tablet, extended release escitalopra 2022-10 Yes 20 mg = 1 M emoria m 20 mg 0-16 tab, PO, l oral tablet 16:21: Q12H Ajay n gabapentin 2022-10 Yes 100 mg = 1 M emoria 100 mg oral 0-16 cap, PO, l capsule 16:21: Bedtime rOPINIRole 2022-10 Yes 4 mg = 1 Mem oria 4 mg oral 0-16 tab, PO, l tablet 16:21: Q1 buPROPion 2022-10 Yes 150 mg = 1 Me moria 150 mg/24 0-16 tab, PO, l hours (XL) 16:21: Q12H [place] oral 00 tablet, extended release levothyroxi 2022-10 Yes 112 Memori a ne 112 mcg 0-16 microgram l (0.112 mg) 16:19: = 1 tab, Her ivory oral tablet 00 PO, Daily lovastatin 2022-10 Yes 20 mg = 1 Me moria 20 mg oral 0-16 tab, PO, l tablet 16:19: Bedtime levothyroxi 2022-10 Yes 112 Memori a ne 112 mcg 0-16 microgram l (0.112 mg) 16:19: = 1 tab, Her ivory oral tablet 00 PO, Daily lovastatin 2022-10 Yes 20 mg = 1 Me moria 20 mg oral 0-16 tab, PO, l tablet 16:19: Bedtime vancomycin 2022-10 No 2001 mg: Me moria + Sodium 0-15 infuse l Chloride 19:00: over 2.5 Jessie nn 0.9% IV 250 00 hours For mL adult patients only: Round to nearest 250 mg per Medical Staff approval MEDICATION WASTE Product Size: 1000 mg Product Wasted: ___ mg vancomycin 2022-10 No 2000 mg: Me moria + Sodium 0-15 infuse l Chloride 19:00: over 2.5 Jessie nn 0.9% IV 250 00 hours For mL adult patients only: Round to nearest 250 mg per Medical Staff approval MEDICATION WASTE Product Size: 1000 mg Product Wasted: ___ mg dextrometho 2022-10 Yes Notes: Jose Francisco zhang rphan-guaiF 0-15 (dextromet l ENesin 10 18:24: roly-dhiraj He rmann mg-100 mg/5 00 aifenesin mL oral 10-100mg/5 liquid ml 10 ml oral SOLN ud) (Same as: Robitussin DM) dextrometho 2022-10 Yes Notes: Jose Francisco zhang rphan-guaiF 0-15 (dextromet l ENesin 10 18:24: horlou-dhiraj He rmann mg-100 mg/5 00 aifenesin mL oral 10-100mg/5 liquid ml 10 ml oral SOLN ud) (Same as: Robitussin DM) vancomycin 2022-10 No 2000 mg: Me moria + Sodium 0-14 infuse l Chloride 18:45: over 2.5 Jessie nn 0.9% IV 500 00 hours For mL adult patients only: Round to nearest 250 mg per Medical Staff approval MEDICATION WASTE Product Size: 1000 mg Product Wasted: ___ mg vancomycin 2022-10 No 2000 mg: Me moria + Sodium 0-14 infuse l Chloride 18:45: over 2.5 Jessie nn 0.9% IV 500 00 hours For mL adult patients only: Round to nearest 250 mg per Medical Staff approval MEDICATION WASTE Product Size: 1000 mg Product Wasted: ___ mg Vancomycin 2022-10 Yes Notes: Memor ia Pharmacy 0-14 Vancomycin l Dosing 18:08: Pharmacy Raul Consult 31 Dosing Protocol PHARMAC Y USE ONLY Note: This is not a medication order. This is a consultati on order. Vancomycin 2022-10 Yes Notes: Memor ia Pharmacy 0-14 Vancomycin l Dosing 18:08: Pharmacy [place] Consult 31 Dosing Protocol PHARMAC Y USE ONLY Note: This is not a medication order. This is a consultati on order. potassium 2022-10 No Notes: Memori a chloride 0-14 (Same as: l 14:08: Potassium Chloride) potassium 2022-10 No Notes: Memori a chloride 0-14 (Same as: l 14:08: Potassium Chloride) albuterol-i 2022-10 Yes Notes: Jose Francisco zhang pratropium 0-13 (Same as: l 2.5-0.5 mg 20:00: Duoneb) Herm bernie inhalation 00 solution predniSONE 2022-10 Yes Notes: Memor ia 0-13 Take with l 20:00: food. albuterol-i 2022-10 Yes Notes: Jose Francisco zhang [...] 19:17: Duoneb) Herm bernie inhalation 00 solution albuterol 2022-10 Yes Notes: SEE Me moria 0.083% 0-13 RT l inhalation 19:17: DOCUMENTAT H ermann solution 00 ION (Same as: Proventil) albuterol-i 2022-10 Yes Notes: Jose Francisco zhang pratropium 0-13 (Same as: l 2.5-0.5 mg 19:17: Duoneb) Herm bernie inhalation 00 solution Lasix 2022-10 Yes Notes: Memoria 0-13 (Same as: l 14:00: Lasix) [place] 00 MEDICATION WASTE Product Size: 40 mg Product Wasted: ___ mg Lasix 2022-10 Yes Notes: Memoria 0-13 (Same as: l 14:00: Lasix) Raul 00 MEDICATION WASTE Product Size: 40 mg Product Wasted: ___ mg cefTRIAXone 2022-10 No 1 gm, Memor ia 0-12 Route: l 21:00: IVPB, Drug [place] 00 form: PDR/INJ, [id number], Dosing Weight 73.6, kg, Start date: 07/12/23 16:00:00 CDT, Duration: 5 day, Stop date: 07/16/23 16:00:00 CDT, UTI, SSTI, CAP, ABX Indication : Pneumonia cefTRIAXone 2022-10 No 1 gm, Memor ia 0-12 Route: l 21:00: IVPB, Drug [place] 00 form: PDR/INJ, [id number], Dosing Weight 73.6, kg, Start date: 07/12/23 16:00:00 CDT, Duration: 5 day, Stop date: 07/16/23 16:00:00 CDT, UTI, SSTI, CAP, ABX Indication : Pneumonia docusate 2022-10 Yes Notes: Memoria 0-12 (Same as: l 14:00: Colace) [place] 00 (Do Not Crush) heparin 2022-10 Yes Notes: Memoria 0-12 porcine l 14:00: heparin [place] 00 carvedilol 2022-10 Yes Notes: Memor ia 0-12 Give with l 14:00: food. [place] 00 (Same As: Coreg) docusate 2022-10 Yes Notes: Memoria 0-12 (Same as: l 14:00: Colace) [place] 00 (Do Not Crush) heparin 2022-10 Yes Notes: Memoria 0-12 porcine l 14:00: heparin Raul 00 carvedilol 2022-10 Yes Notes: Memor ia 0-12 Give with l 14:00: food. [place] 00 (Same As: Coreg) levothyroxi 2022-10 Yes Notes: Jose Francisco zhang ne 0-12 Take 1 l 11:30: hour [place] 00 before or 2 hours after meal; Enteral feeds may interefere with the absorption of this medication .(Same as:Levothr oid) levothyroxi 2022-10 Yes Notes: Jose Francisco zhang [...] bernie 0.9% IV 250 00 IV) mL Rocephin + 2022-10 Yes Notes: Memor ia [...] 0-12 999 ml/hr, l 10:42: Route: IV, [place] 00 Drug Form: INJ, Dosing Weight 79.545, kg, PRN, PRN Blood Glucose Results, Start date: 07/12/23 5:42:00 CDT, Duration: 30 day, Stop date: 08/11/23 4:41: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, Infuse over: 0.3 hr, 0 D10W 2022-10 Yes 250 mL, Memoria (bolus) IV 0-12 999 ml/hr, l 10:42: Route: IV, Raul 00 Drug Form: INJ, Dosing Weight 79.545, kg, PRN, PRN Blood Glucose Results, Start date: 07/12/23 5:42:00 CDT, Duration: 30 day, Stop date: 08/11/23 4:41: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, Infuse over: 0.3 hr, 0 Dextrose 2022-10 No 25 mL, Memoria 50% Syringe 0-12 Route: l (D50W) 10:24: IVP, [place] Dosing Weight 79.545, kg, PRN, PRN Blood Glucose Results, Start date: 07/12/23 5:24:00 CDT, Duration: 30 day, Stop date: 08/11/23 4:23: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 glucagon 2022-10 Yes 1 mg, Memoria 0-12 Route: IM, l 10:24: Drug form: PDR/INJ, PRN, Dosing Weight 79.545, kg, PRN Blood Glucose Results, Start date: 07/12/23 5:24:00 CDT, Duration: 30 day, Stop date: 08/11/23 4:23: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, 0 ondansetron 2022-10 Yes Notes: Jose Francisco zhang 0-12 (Same as: l 10:24: Zofran) MEDICATION WASTE Product Size: 4 mg Product Wasted: ___ mg acetaminoph 2022-10 Yes Notes: Do M emoria en 0-12 not exceed l 10:24: 4 gm/day. (Same as: Tylenol) potassium 2022-10 Yes /= 14 Memoria chloride 0-12 Ghanaian, l 10:24: january dissolve each 20 mEq tablet in 4 oz of water. Allow about 2 minutes for the tablets to disintegra te. Stir before giving to prepare slurry and administer . Please exclude patient's with feeding tube less than 14 Ghanaian (Dobhoff, J-tube, etc) and pediatric and patients. potassium 2022-10 Yes Notes: Memori a phosphate-s 0-12 (Same as: l odium 10:24: Phos-NaK) phosphate 00 Each 1.5 250 mg-280 gm [...] oxide 0-12 (Same as: l 10:24: Mag-Ox 400) Magnesium oxide [id number] g elemental magnesium Dose=____m g magnesium oxide (___mg elemental magnesium) calcium 2022-10 Yes Notes: Memoria gluconate 0-12 Contains: l 10:24: calcium gluconate 20mg/mL NaCl 0.67% 100mL WASTE: F/P - Sink; E - Municipal Trash Bin calcium 2022-10 Yes Notes: Memoria gluconate + 0-12 WASTE: F/P l Sodium 10:24: - Sink; E Ajay n Chloride 00 - 0.9% IV 120 Municipal mL Trash Bin Dextrose 2022-10 No 25 mL, Memoria 50% Syringe 0-12 Route: l (D50W) 10:24: IVP, Dosing Weight 79.545, kg, PRN, PRN Blood Glucose Results, Start date: 07/12/23 5:24:00 CDT, Duration: 30 day, Stop date: 08/11/23 4:23: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 glucagon 2022-10 Yes 1 mg, Memoria 0-12 Route: IM, l 10:24: Drug form: PDR/INJ, PRN, Dosing Weight 79.545, kg, PRN Blood Glucose Results, Start date: 07/12/23 5:24:00 CDT, Duration: 30 day, Stop date: 08/11/23 4:23: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, 0 ondansetron 2022-10 Yes Notes: Jose Francisco zhang 0-12 (Same as: l 10:24: Zofran) Raul 00 MEDICATION WASTE Product Size: 4 mg Product Wasted: ___ mg acetaminoph 2022-10 Yes Notes: Do M emoria en 0-12 not exceed l 10:24: 4 gm/day. Raul 00 (Same as: Tylenol) potassium 2022-10 Yes /= 14 Memoria chloride 0-12 Ghanaian, l 10:24: may Raul 00 dissolve each 20 mEq tablet in 4 oz of water. Allow about 2 minutes for the tablets to disintegra te. Stir before giving to prepare slurry and administer . Please exclude patient's with feeding tube less than 14 Ghanaian (Dobhoff, J-tube, etc) and pediatric and patients. [...] WASTE: F/P l 10:24: - Sink; E [place] 00 - Municipal Trash Bin magnesium 2022-10 Yes Notes: Memori a oxide 0-12 (Same as: l 10:24: Mag-Ox [place] 00 400) Magnesium oxide [id number] g elemental magnesium Dose=____m g magnesium oxide [...] Memoria 0-12 Route: l 09:06: IVP, Drug [place] 00 form: INJ, ONCE, Dosing Weight 79.545, kg, Priority: STAT, Start date: 07/12/23 4:06:00 CDT, Stop date: 07/12/23 4:06:00 CDT Lasix 2022-10 No 40 mg, Memoria 0-12 Route: l 09:06: IVP, Drug [place] form: INJ, ONCE, Dosing Weight 79.545, kg, Priority: STAT, Start date: 07/12/23 4:06:00 CDT, Stop date: 07/12/23 4:06:00 CDT Lasix 2022-10 No 40 mg, Memoria 0-12 Route: l 08:40: IVP, Drug Raul 00 form: INJ, ONCE, Dosing Weight 79.545, kg, Priority: STAT, Start date: 07/12/23 3:40:00 CDT, Stop date: 07/12/23 3:40:00 CDT Lasix 1 No 40 mg, Memoria 0-12 Route: l 08:40: IVP, Drug Raul 00 form: INJ, ONCE, Dosing Weight 79.545, kg, Priority: STAT, Start date: 07/12/23 3:40:00 CDT, Stop date: 07/12/23 3:40:00 CDT valproic Yes 500 mg = 2 Mem oria acid 250 mg 3-01 cap, PO, l oral 16:43: Q8H, # 30 [place] capsule(Dep 00 cap, 0 ekene) Refill(s), Pharmacy: [id number], 149.86, cm, 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, Height, 86.364, kg, 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, Weight Tylenol 2022-0 No 1 tab, PO, Jose Francisco zhang with 3-01 Q6H, PRN l Codeine #3 16:43: Pain Score H ermann oral tablet 00 7-10, X 3 day, # 12 tab, 0 Refill(s), Pharmacy: [id number], 149.86, cm, 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, Height, 86.364, kg, 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, Weight valproic 2022-0 Yes 500 mg = 2 Mem oria acid 250 mg 3-01 cap, PO, l oral 16:43: Q8H, # 30 [place] capsule(Dep 00 cap, 0 ekene) Refill(s), Pharmacy: [id number], 149.86, cm, 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, Height, 86.364, kg, 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, Weight Tylenol 2022-0 No 1 tab, PO, Jose Francisco zhang with 3-01 Q6H, PRN l Codeine #3 16:43: Pain Score H ermann oral tablet 00 7-10, X 3 day, # 12 tab, 0 Refill(s), Pharmacy: [id number], 149.86, cm, 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, Height, 86.364, kg, 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, Weight valproic 2022-0 Yes 500 mg = 2 Mem oria acid 250 mg 3-01 cap, PO, l oral 16:43: Q8H, # 30 Raul capsule(Dep 00 cap, 0 ekene) Refill(s), Pharmacy: [id number], 149.86, cm, 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, Height, 86.364, kg, 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, Weight Tylenol 2022-0 No 1 tab, PO, Jose Francisco zhang with 3-01 Q6H, PRN l Codeine #3 16:43: Pain Score H ermann oral tablet 00 7-10, X 3 day, # 12 tab, 0 Refill(s), Pharmacy: [facility] #[id number], 149.86, cm, 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, Height, 86.364, kg, 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, Weight valproic 2022-0 Yes 500 mg = 2 Mem oria acid 250 mg 3-01 cap, PO, l oral 16:43: Q8H, # 30 Raul capsule(Dep 00 cap, 0 ekene) Refill(s), [facility]acy: [facility] #[id number], 149.86, cm, 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, Height, 86.364, kg, 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, Weight Tylenol 2022-0 No 1 tab, PO, Jose Francisco zhang with 3-01 Q6H, PRN l Codeine #3 16:43: Pain Score H ermann oral tablet 00 7-10, X 3 day, # 12 tab, 0 Refill(s), Pharmacy: [id number], 149.86, cm, 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, Height, 86.364, kg, 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, Weight valproic 2022-0 Yes 500 mg = 2 Mem oria acid 250 mg 3-01 cap, PO, l oral 16:43: Q8H, # 30 [place] capsule(Dep 00 cap, 0 ekene) Refill(s), Pharmacy: [id number], 149.86, cm, 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, Height, 86.364, kg, 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, Weight Tylenol 2022-0 No 1 tab, PO, Jose Francisco zhang with 3-01 Q6H, PRN l Codeine #3 16:43: Pain Score H ermann oral tablet 00 7-10, X 3 day, # 12 tab, 0 Refill(s), Pharmacy: [facility] #[id number], 149.86, cm, 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, Height, 86.364, kg, 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, 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 valproic 2022-0 Yes 500 mg = 2 Mem oria acid 250 mg 3-01 cap, PO, l oral 16:43: Q8H, # 30 Raul capsule(Dep 00 cap, 0 ekene) Refill(s), [facility]acy: [facility] #[id number], 149.86, cm, 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, 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, 86.364, kg, 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, 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 Tylenol 2022-0 No 1 tab, PO, Jose Francisco zhang with 3-01 Q6H, PRN l Codeine #3 16:43: Pain Score H ermann oral tablet 00 7-10, X 3 day, # 12 tab, 0 Refill(s), Pharmacy: [facility] #[id number], 149.86, cm, 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, Height, 86.364, kg, 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, Weight valproic 2022-0 Yes 500 mg = 2 Mem oria acid 250 mg 3-01 cap, PO, l oral 16:43: Q8H, # 30 Raul capsule(Dep 00 cap, 0 ekene) Refill(s), [facility]acy: [id number], 149.86, cm, 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, Height, 86.364, kg, 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, Weight Tylenol 2022-0 No 1 tab, PO, Jose Francisco zhang with 3-01 Q6H, PRN l Codeine #3 16:43: Pain Score H ermann oral tablet 00 7-10, X 3 day, # 12 tab, 0 Refill(s), Pharmacy: [id number], 149.86, cm, 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, Height, 86.364, kg, 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, Weight valproic 2022-0 Yes 500 mg = 2 Mem oria acid 250 mg 3-01 cap, PO, l oral 16:43: Q8H, # 30 Raul capsule(Dep 00 cap, 0 ekene) Refill(s), Pharmacy: [id number], 149.86, cm, 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, Height, 86.364, kg, 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, Weight Tylenol 2022-0 No 1 tab, PO, Jose Francisco zhang with 3-01 Q6H, PRN l Codeine #3 16:43: Pain Score H ermann oral tablet 00 7-10, X 3 day, # 12 tab, 0 Refill(s), [facility]acy: [facility] #[id number], 149.86, cm, 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, Height, 86.364, kg, 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, Weight valproic 2022-0 Yes 500 mg = 2 Mem oria acid 250 mg 3-01 cap, PO, l oral 16:43: Q8H, # 30 [place] capsule(Dep 00 cap, 0 ekene) Refill(s), [facility]acy: [facility] #[id number], 149.86, cm, 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, Height, 86.364, kg, 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, Weight Tylenol 2022-0 No 1 tab, PO, Jose Francisco zhang with 3-01 Q6H, PRN l Codeine #3 16:43: Pain Score H ermann oral tablet 00 7-10, X 3 day, # 12 tab, 0 Refill(s), Pharmacy: [facility] #[id number], 149.86, cm, 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, Height, 86.364, kg, 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, Weight valproic 2022-0 Yes 500 mg = 2 Mem oria acid 250 mg 3-01 cap, PO, l oral 16:43: Q8H, # 30 Raul capsule(Dep 00 cap, 0 ekene) Refill(s), [facility]: [id number], 149.86, cm, 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, Height, 86.364, kg, 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, Weight Tylenol 2022-0 No 1 tab, PO, Jose Francisco zhang with 3-01 Q6H, PRN l Codeine #3 16:43: Pain Score H ermann oral tablet 00 7-10, X 3 day, # 12 tab, 0 Refill(s), Pharmacy: [facility] #[id number], 149.86, cm, 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, Height, 86.364, kg, 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, Weight valproic 2022-0 Yes 500 mg = 2 Mem oria acid 250 mg 3-01 cap, PO, l oral 16:43: Q8H, # 30 [place] capsule(Dep 00 cap, 0 ekene) Refill(s), Pharmacy: [facility] #[id number], 149.86, cm, 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, Height, 86.364, kg, 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, Weight Tylenol 2022-0 No 1 tab, PO, Jose Francisco zhang with 3-01 Q6H, PRN l Codeine #3 16:43: Pain Score H ermann oral tablet 00 7-10, X 3 day, # 12 tab, 0 Refill(s), Pharmacy: [facility] #[id number], 149.86, cm, 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, Height, 86.364, kg, 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, Weight rOPINIRole 3-0 Yes 2 mg = 1 Mem oria 2 mg oral 3-01 tab, PO, l tablet 16:42: Q12H, 0 [place] 00 Refill(s) acetaminoph 2023-0 Yes 100.4 F, M emoria en 325 mg 3-01 0 l oral 16:42: Refill(s) Raul tablet. 00 rOPINIRole 2023-0 Yes 2 mg = 1 Mem oria 2 mg oral 3-01 tab, PO, l tablet 16:42: Q12H, 0 [place] 00 Refill(s) acetaminoph 2023-0 Yes 100.4 F, M emoria en 325 mg 3-01 0 l oral 16:42: Refill(s) Raul tablet. 00 rOPINIRole 2023-0 Yes 2 mg = 1 Mem oria 2 mg oral 3-01 tab, PO, l tablet 16:42: Q12H, 0 Raul 00 Refill(s) acetaminoph 2023-0 Yes 100.4 F, M emoria en 325 mg 3-01 0 l oral 16:42: Refill(s) [place] tablet. 00 rOPINIRole 2023-0 Yes 2 mg [...] tab, PO, l tablet 16:42: Q12H, 0 [place] 00 Refill(s) acetaminoph 2023-0 Yes 100.4 F, M emoria en 325 mg 3-01 0 l oral 16:42: Refill(s) [place] tablet. 00 rOPINIRole 2023-0 Yes 2 mg [...] tab, PO, l tablet 16:42: Q12H, 0 [place] 00 Refill(s) acetaminoph 2023-0 Yes 100.4 F, M emoria en 325 mg 3-01 0 l oral 16:42: Refill(s) Raul tablet. 00 rOPINIRole 2023-0 Yes 2 mg = 1 Mem oria 2 mg oral 3-01 tab, PO, l tablet 16:42: Q12H, 0 Raul 00 Refill(s) acetaminoph 2023-0 Yes 100.4 F, M emoria en 325 mg 3-01 0 l oral 16:42: Refill(s) [place] tablet. 00 rOPINIRole 2023-0 Yes 2 mg = 1 Mem oria 2 mg oral 3-01 tab, PO, l tablet 16:42: Q12H, 0 [place] 00 Refill(s) acetaminoph 2023-0 Yes 100.4 F, M emoria en 325 mg 3-01 0 l oral 16:42: Refill(s) Raul tablet. 00 rOPINIRole 2023-0 Yes 2 mg = 1 Mem oria 2 mg oral 3-01 tab, PO, l tablet 16:42: Q12H, 0 [place] 00 Refill(s) acetaminoph 2023-0 Yes 100.4 F, M emoria en 325 mg 3-01 0 l oral 16:42: Refill(s) Raul tablet. 00 donepezil 2023-0 No 10 mg, 2 Jose Francisco zhang 2-28 tab, l 15:00: Route: PO, [place] 00 Drug form: TAB, Daily, Dosing Weight 86.364, kg, Start date: 11/28/22 9:00: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, Duration: 30 day, Stop date: 12/27/22 9:00:00 CDT, 0 ferrous 3-0 No Notes: Memoria sulfate 2-28 Give with l 15:00: food. "Do Not Crush" NIFEdipine 3-0 No 30 mg, 1 Mem oria 30 mg oral 2-28 tab, l tablet, 15:00: Route: PO, Herm bernie Drug form: release ERTAB, Daily, Dosing Weight 86.364, kg, Start date: 11/28/22 9:00: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, Duration: 30 day, Stop date: 12/27/22 9:00:00 CDT, 0 donepezil 2023-0 No 10 mg, 2 Jose Francisco zhang 2-28 tab, l 15:00: Route: PO, [place] Drug form: TAB, Daily, Dosing Weight 86.364, kg, Start date: 11/28/22 9:00: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, Duration: 30 day, Stop date: 12/27/22 9:00:00 CDT, 0 ferrous 2023-0 No Notes: Memoria sulfate 2-28 Give with l 15:00: food. "Do Not Crush" NIFEdipine 2023-0 No 30 mg, 1 Mem oria 30 mg oral 2-28 tab, l tablet, 15:00: Route: PO, Herm bernie extended 00 Drug form: release ERTAB, Daily, Dosing Weight 86.364, kg, Start date: 11/28/22 9:00: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, Duration: 30 day, Stop date: 12/27/22 9:00:00 CDT, 0 donepezil 2023-0 No 10 mg, 2 Jose Francisco zhang 2-28 tab, l 15:00: Route: PO, [place] 00 Drug form: TAB, Daily, Dosing Weight 86.364, kg, Start date: 11/28/22 9:00: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, Duration: 30 day, Stop date: 12/27/22 9:00:00 CDT, 0 ferrous 2023-0 No Notes: Memoria sulfate 2-28 Give with l 15:00: food. "Do Not Crush" NIFEdipine 2023-0 No 30 mg, 1 Mem oria 30 mg oral 2-28 tab, l tablet, 15:00: Route: PO, Herm bernie extended 00 Drug form: release ERTAB, Daily, Dosing Weight 86.364, kg, Start date: 11/28/22 9:00: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, Duration: 30 day, Stop date: 12/27/22 9:00:00 CDT, 0 donepezil 2023-0 No 10 mg, 2 Jose Francisco zhang 2-28 tab, l 15:00: Route: PO, Raul 00 Drug form: TAB, Daily, Dosing Weight 86.364, kg, Start date: 11/28/22 9:00: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, Duration: 30 day, Stop date: 12/27/22 9:00:00 CDT, 0 ferrous 2023-0 No Notes: Memoria sulfate 2-28 Give with l 15:00: food. "Do Not Crush" NIFEdipine 2023-0 No 30 mg, 1 Mem oria 30 mg oral 2-28 tab, l tablet, 15:00: Route: PO, Herm bernie extended 00 Drug form: release ERTAB, Daily, Dosing Weight 86.364, kg, Start date: 11/28/22 9:00: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, Duration: 30 day, Stop date: 12/27/22 9:00:00 CDT, 0 donepezil 2023-0 No 10 mg, 2 Jose Francisco zhang 2-28 tab, l 15:00: Route: PO, [place] 00 Drug form: TAB, Daily, Dosing Weight 86.364, kg, Start date: 11/28/22 9:00: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, Duration: 30 day, Stop date: 12/27/22 9:00:00 CDT, 0 ferrous 2023-0 No Notes: Memoria sulfate 2-28 Give with l 15:00: food. "Do Not Crush" NIFEdipine 2023-0 No 30 mg, 1 Mem oria 30 mg oral 2-28 tab, l tablet, 15:00: Route: PO, Herm bernie extended 00 Drug form: release ERTAB, Daily, Dosing Weight 86.364, kg, Start date: 11/28/22 9:00: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, Duration: 30 day, Stop date: 12/27/22 9:00:00 CDT, 0 donepezil 2023-0 No 10 mg, 2 Jose Francisco zhang 2-28 tab, l 15:00: Route: PO, Raul Drug form: TAB, Daily, Dosing Weight 86.364, kg, Start date: 11/28/22 9:00: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, Duration: 30 day, Stop date: 12/27/22 9:00:00 CDT, 0 ferrous 2023-0 No Notes: Memoria sulfate 2-28 Give with l 15:00: food. "Do Not Crush" NIFEdipine 2023-0 No 30 mg, 1 Mem oria 30 mg oral 2-28 tab, l tablet, 15:00: Route: PO, Herm bernie extended 00 Drug form: release ERTAB, Daily, Dosing Weight 86.364, kg, Start date: 11/28/22 9:00: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, Duration: 30 day, Stop date: 12/27/22 9:00:00 CDT, 0 donepezil 2023-0 No 10 mg, 2 Jose Francisco zhang 2-28 tab, l 15:00: Route: PO, [place] 00 Drug form: TAB, Daily, Dosing Weight 86.364, kg, Start date: 11/28/22 9:00: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, Duration: 30 day, Stop date: 12/27/22 9:00:00 CDT, 0 ferrous 2023-0 No Notes: Memoria sulfate 2-28 Give with l 15:00: food. "Do Not Crush" NIFEdipine 2023-0 No 30 mg, 1 Mem oria 30 mg oral 2-28 tab, l tablet, 15:00: Route: PO, Herm bernie extended 00 Drug form: release ERTAB, Daily, Dosing Weight 86.364, kg, Start date: 11/28/22 9:00: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, Duration: 30 day, Stop date: 12/27/22 9:00:00 CDT, 0 donepezil 2023-0 No 10 mg, 2 Jose Francisco zhang 2-28 tab, l 15:00: Route: PO, Raul 00 Drug form: TAB, Daily, Dosing Weight 86.364, kg, Start date: 11/28/22 9:00: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, Duration: 30 day, Stop date: 12/27/22 9:00:00 CDT, 0 ferrous 2023-0 No Notes: Memoria sulfate 2-28 Give with l 15:00: food. "Do Not Crush" NIFEdipine 2023-0 No 30 mg, 1 Mem oria 30 mg oral 2-28 tab, l tablet, 15:00: Route: PO, Herm bernie extended 00 Drug form: release ERTAB, Daily, Dosing Weight 86.364, kg, Start date: 11/28/22 9:00: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, Duration: 30 day, Stop date: 12/27/22 9:00:00 CDT, 0 donepezil 2023-0 No 10 mg, 2 Jose Francisco zhang 2-28 tab, l 15:00: Route: PO, Raul 00 Drug form: TAB, Daily, Dosing Weight 86.364, kg, Start date: 11/28/22 9:00: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, Duration: 30 day, Stop date: 12/27/22 9:00:00 CDT, 0 ferrous 2023-0 No Notes: Memoria sulfate 2-28 Give with l 15:00: food. "Do Not Crush" NIFEdipine 2023-0 No 30 mg, 1 Mem oria 30 mg oral 2-28 tab, l tablet, 15:00: Route: PO, Herm bernie extended 00 Drug form: release ERTAB, Daily, Dosing Weight 86.364, kg, Start date: 11/28/22 9:00: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, Duration: 30 day, Stop date: 12/27/22 9:00:00 CDT, 0 donepezil 2023-0 No 10 mg, 2 Jose Francisco zhang 2-28 tab, l 15:00: Route: PO, [place] 00 Drug form: TAB, Daily, Dosing Weight 86.364, kg, Start date: 11/28/22 9:00: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, Duration: 30 day, Stop date: 12/27/22 9:00:00 CDT, 0 ferrous 2023-0 No Notes: Memoria sulfate 2-28 Give with l 15:00: food. "Do Not Crush" NIFEdipine 2023-0 No 30 mg, 1 Mem oria 30 mg oral 2-28 tab, l tablet, 15:00: Route: PO, Herm bernie extended 00 Drug form: release ERTAB, Daily, Dosing Weight 86.364, kg, Start date: 11/28/22 9:00: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, Duration: 30 day, Stop date: 12/27/22 9:00:00 CDT, 0 donepezil 2023-0 No 10 mg, 2 Jose Francisco zhang 2-28 tab, l 15:00: Route: PO, Raul Drug form: TAB, Daily, Dosing Weight 86.364, kg, Start date: 11/28/22 9:00: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, Duration: 30 day, Stop date: 12/27/22 9:00:00 CDT, 0 ferrous 2023-0 No Notes: Memoria sulfate 2-28 Give with l 15:00: food. "Do Not Crush" NIFEdipine 2023-0 No 30 mg, 1 Mem oria 30 mg oral 2-28 tab, l tablet, 15:00: Route: PO, Herm bernie extended 00 Drug form: release ERTAB, Daily, Dosing Weight 86.364, kg, Start date: 11/28/22 9:00: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, Duration: 30 day, Stop date: 12/27/22 9:00:00 CDT, 0 heparin 2023-0 No Notes: Memoria 5000 2-28 [...] heparin Ajay n injectable 00 solution levothyroxi 2023-0 No 112 Memori a ne 2-28 microgram, l 12:00: 1 tab, Raul 00 Route: PO, Drug form: TAB, Q6AM, Dosing Weight 86.364, kg, Start date: 11/28/22 6:00: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, Duration: 30 day, Stop date: 12/27/22 6:00:00 CDT, 0 levothyroxi 2023-0 No 112 Memori a ne 2-28 microgram, l 12:00: 1 tab, Raul 00 Route: PO, Drug form: TAB, Q6AM, Dosing Weight 86.364, kg, Start date: 11/28/22 6:00: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, Duration: 30 day, Stop date: 12/27/22 6:00:00 CDT, 0 levothyroxi 2023-0 No 112 Memori a ne 2-28 microgram, l 12:00: 1 tab, Raul 00 Route: PO, Drug form: TAB, Q6AM, Dosing Weight 86.364, kg, Start date: 11/28/22 6:00: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, Duration: 30 day, Stop date: 12/27/22 6:00:00 CDT, 0 levothyroxi 2023-0 No 112 Memori a ne 2-28 microgram, l 12:00: 1 tab, Raul 00 Route: PO, Drug form: TAB, Q6AM, Dosing Weight 86.364, kg, Start date: 11/28/22 6:00: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, Duration: 30 day, Stop date: 12/27/22 6:00:00 CDT, 0 levothyroxi 2023-0 No 112 Memori a ne 2-28 microgram, l 12:00: 1 tab, [place] 00 Route: PO, Drug form: TAB, Q6AM, Dosing Weight 86.364, kg, Start date: 11/28/22 6:00: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, Duration: 30 day, Stop date: 12/27/22 6:00:00 CDT, 0 levothyroxi 2023-0 No 112 Memori a ne 2-28 microgram, l 12:00: 1 tab, Route: PO, Drug form: TAB, Q6AM, Dosing Weight 86.364, kg, Start date: 11/28/22 6:00: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, Duration: 30 day, Stop date: 12/27/22 6:00:00 CDT, 0 levothyroxi 2023-0 No 112 Memori a ne 2-28 microgram, l 12:00: 1 tab, Route: PO, Drug form: TAB, Q6AM, Dosing Weight 86.364, kg, Start date: 11/28/22 6:00: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, Duration: 30 day, Stop date: 12/27/22 6:00:00 CDT, 0 levothyroxi 2023-0 No 112 Memori a ne 2-28 microgram, l 12:00: 1 tab, Raul 00 Route: PO, Drug form: TAB, Q6AM, Dosing Weight 86.364, kg, Start date: 11/28/22 6:00: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, Duration: 30 day, Stop date: 12/27/22 6:00:00 CDT, 0 levothyroxi 2023-0 No 112 Memori a ne 2-28 microgram, l 12:00: 1 tab, Route: PO, Drug form: TAB, Q6AM, Dosing Weight 86.364, kg, Start date: 11/28/22 6:00: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, Duration: 30 day, Stop date: 12/27/22 6:00:00 CDT, 0 levothyroxi 2022-0 No 112 Memori a ne 2-28 microgram, l 12:00: 1 tab, Route: PO, Drug form: TAB, Q6AM, Dosing Weight 86.364, kg, Start date: 11/28/22 6:00: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, Duration: 30 day, Stop date: 12/27/22 6:00:00 CDT, 0 levothyroxi 2022-0 No 112 Memori a ne 2-28 microgram, l 12:00: 1 tab, Route: PO, Drug form: TAB, Q6AM, Dosing Weight 86.364, kg, Start date: 11/28/22 6:00: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, Duration: 30 day, Stop date: 12/27/22 6:00:00 CDT, 0 Wellbutrin No 150 mg, 1 Me moria SR 2-28 tab, l 03:00: Route: PO, Drug form: ERTAB, Q12H, Dosing Weight 86.364, kg, Start date: 11/27/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, Duration: 30 day, Stop date: 12/27/22 9:00:00 [...] Weight 86.364, kg, Start date: 11/27/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, Duration: 30 day, Stop date: 12/26/22 21:00:00 CDT, 0 primidone 2022-0 No Notes: Memori a 2-28 (Same as: l 03:00: Mysoline) rOPINIRole 0 No Notes: Memor ia 2-28 TIME l 03:00: CRITICAL MEDICATION (Same as: Requip) Wellbutrin No 150 mg, 1 Me moria SR 2-28 tab, l 03:00: Route: PO, Drug form: ERTAB, Q12H, Dosing Weight 86.364, kg, Start date: 11/27/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, Duration: 30 day, Stop date: 12/27/22 9:00:00 [...] Weight 86.364, kg, Start date: 11/27/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, Duration: 30 day, Stop date: 12/26/22 21:00:00 CDT, 0 primidone 2022-0 No Notes: Memori a 2-28 (Same as: l 03:00: Mysoline) rOPINIRole 0 No Notes: Memor ia 2-28 TIME l 03:00: CRITICAL MEDICATION (Same as: Requip) Wellbutrin 0 No 150 mg, 1 Me moria SR 2-28 tab, l 03:00: Route: PO, Drug form: ERTAB, Q12H, Dosing Weight 86.364, kg, Start date: 11/27/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, Duration: 30 day, Stop date: 12/27/22 9:00:00 [...] Weight 86.364, kg, Start date: 11/27/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, Duration: 30 day, Stop date: 12/26/22 21:00:00 CDT, 0 primidone 0 No Notes: Memori a 2-28 (Same as: l 03:00: Mysoline) rOPINIRole No Notes: Memor ia 2-28 TIME l 03:00: CRITICAL MEDICATION (Same as: Requip) Wellbutrin No 150 mg, 1 Me moria SR 2-28 tab, l 03:00: Route: PO, Drug form: ERTAB, Q12H, Dosing Weight 86.364, kg, Start date: 11/27/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, Duration: 30 day, Stop date: 12/27/22 9:00:00 [...] Weight 86.364, kg, Start date: 11/27/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, Duration: 30 day, Stop date: 12/26/22 21:00:00 CDT, 0 primidone 2022-0 No Notes: Memori a 2-28 (Same as: l 03:00: Mysoline) rOPINIRole 2022-0 No Notes: Memor ia 2-28 TIME l 03:00: CRITICAL MEDICATION (Same as: Requip) Wellbutrin 0 No 150 mg, 1 Me moria SR 2-28 tab, l 03:00: Route: PO, Drug form: ERTAB, Q12H, Dosing Weight 86.364, kg, Start date: 11/27/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, Duration: 30 day, Stop date: 12/27/22 9:00:00 [...] Weight 86.364, kg, Start date: 11/27/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, Duration: 30 day, Stop date: 12/26/22 21:00:00 CDT, 0 primidone 2022-0 No Notes: Memori a 2-28 (Same as: l 03:00: Mysoline) rOPINIRole 2022-0 No Notes: Memor ia 2-28 TIME l 03:00: CRITICAL MEDICATION (Same as: Requip) Wellbutrin 2022-0 No 150 mg, 1 Me moria SR 2-28 tab, l 03:00: Route: PO, Drug form: ERTAB, Q12H, Dosing Weight 86.364, kg, Start date: 11/27/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, Duration: 30 day, Stop date: 12/27/22 9:00:00 [...] Weight 86.364, kg, Start date: 11/27/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, Duration: 30 day, Stop date: 12/26/22 21:00:00 CDT, 0 primidone No Notes: Memori a 2-28 (Same as: l 03:00: Mysoline) rOPINIRole No Notes: Memor ia 2-28 TIME l 03:00: CRITICAL MEDICATION (Same as: Requip) Wellbutrin No 150 mg, 1 Me moria SR 2-28 tab, l 03:00: Route: PO, Drug form: ERTAB, Q12H, Dosing Weight 86.364, kg, Start date: 11/27/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, Duration: 30 day, Stop date: 12/27/22 9:00:00 [...] Weight 86.364, kg, Start date: 11/27/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, Duration: 30 day, Stop date: 12/26/22 21:00:00 CDT, 0 primidone 2022-0 No Notes: Memori a 2-28 (Same as: l 03:00: Mysoline) rOPINIRole No Notes: Memor ia 2-28 TIME l 03:00: CRITICAL MEDICATION (Same as: Requip) Wellbutrin 0 No 150 mg, 1 Me moria SR 2-28 tab, l 03:00: Route: PO, Drug form: ERTAB, Q12H, Dosing Weight 86.364, kg, Start date: 11/27/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, Duration: 30 day, Stop date: 12/27/22 9:00:00 [...] Weight 86.364, kg, Start date: 11/27/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, Duration: 30 day, Stop date: 12/26/22 21:00:00 CDT, 0 primidone 2022-0 No Notes: Memori a 2-28 (Same as: l 03:00: Mysoline) rOPINIRole 0 No Notes: Memor ia 2-28 TIME l 03:00: CRITICAL MEDICATION (Same as: Requip) Wellbutrin 0 No 150 mg, 1 Me moria SR 2-28 tab, l 03:00: Route: PO, Drug form: ERTAB, Q12H, Dosing Weight 86.364, kg, Start date: 11/27/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, Duration: 30 day, Stop date: 12/27/22 9:00:00 [...] Weight 86.364, kg, Start date: 11/27/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, Duration: 30 day, Stop date: 12/26/22 21:00:00 CDT, 0 primidone 0 No Notes: Memori a 2-28 (Same as: l 03:00: Mysoline) rOPINIRole No Notes: Memor ia 2-28 TIME l 03:00: CRITICAL MEDICATION (Same as: Requip) Wellbutrin No 150 mg, 1 Me moria SR 2-28 tab, l 03:00: Route: PO, Drug form: ERTAB, Q12H, Dosing Weight 86.364, kg, Start date: 11/27/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, Duration: 30 day, Stop date: 12/27/22 9:00:00 [...] Weight 86.364, kg, Start date: 11/27/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, Duration: 30 day, Stop date: 12/26/22 21:00:00 CDT, 0 primidone 2022-0 No Notes: Memori a 2-28 (Same as: l 03:00: Mysoline) rOPINIRole No Notes: Memor ia 2-28 TIME l 03:00: CRITICAL MEDICATION (Same as: Requip) Wellbutrin No 150 mg, 1 Me moria SR 2-28 tab, l 03:00: Route: PO, Drug form: ERTAB, Q12H, Dosing Weight 86.364, kg, Start date: 11/27/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, Duration: 30 day, Stop date: 12/27/22 9:00:00 [...] Weight 86.364, kg, Start date: 11/27/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, Duration: 30 day, Stop date: 12/26/22 21:00:00 CDT, 0 primidone 2022-0 No Notes: Memori a 2-28 (Same as: l 03:00: Mysoline) rOPINIRole 0 No Notes: Memor ia 2-28 TIME l 03:00: CRITICAL MEDICATION (Same as: Requip) rOPINIRole 0 No 4 mg, 1 Jose Francisco zhang 2-27 tab, l 23:00: Route: PO, Raul 00 Drug form: TAB, BID, Dosing Weight 86.364, kg, 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, Duration: 30 day, Stop date: 12/27/22 9:00:00 CDT pantoprazol 2023-0 No 40 mg, 1 Me moria e 2-27 tab, l 23:00: Route: PO, Drug form: ECTAB, BID, Dosing Weight 86.364, kg, 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, Duration: 30 day, Stop date: 12/27/22 9:00:00 CDT rOPINIRole 2023-0 No 4 mg, 1 Jose Francisco zhang 2-27 tab, l 23:00: Route: PO, Drug form: TAB, BID, Dosing Weight 86.364, kg, 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, Duration: 30 day, Stop date: 12/27/22 9:00:00 CDT pantoprazol 2023-0 No 40 mg, 1 Me moria e 2-27 tab, l 23:00: Route: PO, Drug form: ECTAB, BID, Dosing Weight 86.364, kg, 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, Duration: 30 day, Stop date: 12/27/22 9:00:00 CDT rOPINIRole 2023-0 No 4 mg, 1 Jose Francisco zhang 2-27 tab, l 23:00: Route: PO, Drug form: TAB, BID, Dosing Weight 86.364, kg, 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, Duration: 30 day, Stop date: 12/27/22 9:00:00 CDT pantoprazol 2023-0 No 40 mg, 1 Me moria e 2-27 tab, l 23:00: Route: PO, Drug form: ECTAB, BID, Dosing Weight 86.364, kg, 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, Duration: 30 day, Stop date: 12/27/22 9:00:00 CDT rOPINIRole 2023-0 No 4 mg, 1 Jose Francisco zhang 2-27 tab, l 23:00: Route: PO, Drug form: TAB, BID, Dosing Weight 86.364, kg, 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, Duration: 30 day, Stop date: 12/27/22 9:00:00 CDT pantoprazol 2023-0 No 40 mg, 1 Me moria e 2-27 tab, l 23:00: Route: PO, [place] 00 Drug form: ECTAB, BID, Dosing Weight 86.364, kg, 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, Duration: 30 day, Stop date: 12/27/22 9:00:00 CDT rOPINIRole 2023-0 No 4 mg, 1 Jose Francisco zhang 2-27 tab, l 23:00: Route: PO, Drug form: TAB, BID, Dosing Weight 86.364, kg, 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, Duration: 30 day, Stop date: 12/27/22 9:00:00 CDT pantoprazol 2023-0 No 40 mg, 1 Me moria e 2-27 tab, l 23:00: Route: PO, Drug form: ECTAB, BID, Dosing Weight 86.364, kg, 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, Duration: 30 day, Stop date: 12/27/22 9:00:00 CDT rOPINIRole 2023-0 No 4 mg, 1 Jose Francisco zhang 2-27 tab, l 23:00: Route: PO, Drug form: TAB, BID, Dosing Weight 86.364, kg, 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, Duration: 30 day, Stop date: 12/27/22 9:00:00 CDT pantoprazol 2023-0 No 40 mg, 1 Me moria e 2-27 tab, l 23:00: Route: PO, Drug form: ECTAB, BID, Dosing Weight 86.364, kg, 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, Duration: 30 day, Stop date: 12/27/22 9:00:00 CDT rOPINIRole 2023-0 No 4 mg, 1 Jose Francisco zhang 2-27 tab, l 23:00: Route: PO, Drug form: TAB, BID, Dosing Weight 86.364, kg, 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, Duration: 30 day, Stop date: 12/27/22 9:00:00 CDT pantoprazol 2023-0 No 40 mg, 1 Me moria e 2-27 tab, l 23:00: Route: PO, Raul 00 Drug form: ECTAB, BID, Dosing Weight 86.364, kg, 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, Duration: 30 day, Stop date: 12/27/22 9:00:00 CDT rOPINIRole 2023-0 No 4 mg, 1 Jose Francisco zhang 2-27 tab, l 23:00: Route: PO, Drug form: TAB, BID, Dosing Weight 86.364, kg, 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, Duration: 30 day, Stop date: 12/27/22 9:00:00 CDT pantoprazol 2023-0 No 40 mg, 1 Me moria e 2-27 tab, l 23:00: Route: PO, Drug form: ECTAB, BID, Dosing Weight 86.364, kg, 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, Duration: 30 day, Stop date: 12/27/22 9:00:00 CDT rOPINIRole 2023-0 No 4 mg, 1 Jose Francisco zhang 2-27 tab, l 23:00: Route: PO, Drug form: TAB, BID, Dosing Weight 86.364, kg, 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, Duration: 30 day, Stop date: 12/27/22 9:00:00 CDT pantoprazol 2023-0 No 40 mg, 1 Me moria e 2-27 tab, l 23:00: Route: PO, Drug form: ECTAB, BID, Dosing Weight 86.364, kg, 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, Duration: 30 day, Stop date: 12/27/22 9:00:00 CDT rOPINIRole 2023-0 No 4 mg, 1 Jose Francisco zhang 2-27 tab, l 23:00: Route: PO, Drug form: TAB, BID, Dosing Weight 86.364, kg, 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, Duration: 30 day, Stop date: 12/27/22 9:00:00 CDT pantoprazol 2023-0 No 40 mg, 1 Me moria e 2-27 tab, l 23:00: Route: PO, [place] 00 Drug form: ECTAB, BID, Dosing Weight 86.364, kg, 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, Duration: 30 day, Stop date: 12/27/22 9:00:00 CDT rOPINIRole 2023-0 No 4 mg, 1 Jose Francisco zhang 2-27 tab, l 23:00: Route: PO, [place] 00 Drug form: TAB, BID, Dosing Weight 86.364, kg, 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, Duration: 30 day, Stop date: 12/27/22 9:00:00 CDT pantoprazol 2023-0 No 40 mg, 1 Me moria e 2-27 tab, l 23:00: Route: PO, [place] 00 Drug form: ECTAB, BID, Dosing Weight 86.364, kg, 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, Duration: 30 day, Stop date: 12/27/22 9:00:00 CDT valproic 2023-0 No 500 mg, 2 Jose Francisco zhang acid 250 mg 2-27 cap, l oral 22:00: Route: PO, [place] capsule(Dep 00 Drug form: ekene) CAP, Q8H, Dosing Weight 86.364, kg, Start date: 11/27/22 16:00: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, Duration: 7 day, Stop date: 12/04/22 8:00: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, 0 valproic 2023-0 No 500 mg, 2 Jose Francisco zhang acid 250 mg 2-27 cap, l oral 22:00: Route: PO, [place] capsule(Dep 00 Drug form: ekene) CAP, Q8H, Dosing Weight 86.364, kg, Start date: 11/27/22 16:00: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, Duration: 7 day, Stop date: 12/04/22 8:00: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, 0 valproic 2023-0 No 500 mg, 2 Jose Francisco zhang acid 250 mg 2-27 cap, l oral 22:00: Route: PO, [place] capsule(Dep 00 Drug form: ekene) CAP, Q8H, Dosing Weight 86.364, kg, Start date: 11/27/22 16:00: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, Duration: 7 day, Stop date: 12/04/22 8:00: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, 0 valproic 2023-0 No 500 mg, 2 Jose Francisco zhang acid 250 mg 2-27 cap, l oral 22:00: Route: PO, [place] capsule(Dep 00 Drug form: ekene) CAP, Q8H, Dosing Weight 86.364, kg, Start date: 11/27/22 16:00: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, Duration: 7 day, Stop date: 12/04/22 8:00: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, 0 valproic 2023-0 No 500 mg, 2 Jose Francisco zhang acid 250 mg 2-27 cap, l oral 22:00: Route: PO, [place] capsule(Dep 00 Drug form: ekene) CAP, Q8H, Dosing Weight 86.364, kg, Start date: 11/27/22 16:00: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, Duration: 7 day, Stop date: 12/04/22 8:00: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, 0 valproic 2023-0 No 500 mg, 2 Jose Francisco zhang acid 250 mg 2-27 cap, l oral 22:00: Route: PO, [place] capsule(Dep 00 Drug form: ekene) CAP, Q8H, Dosing Weight 86.364, kg, Start date: 11/27/22 16:00: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, Duration: 7 day, Stop date: 12/04/22 8:00: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, 0 valproic 2023-0 No 500 mg, 2 Jose Francisco zhang acid 250 mg 2-27 cap, l oral 22:00: Route: PO, [place] capsule(Dep 00 Drug form: ekene) CAP, Q8H, Dosing Weight 86.364, kg, Start date: 11/27/22 16:00: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, Duration: 7 day, Stop date: 12/04/22 8:00: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, 0 valproic 2023-0 No 500 mg, 2 Jose Francisco zhang acid 250 mg 2-27 cap, l oral 22:00: Route: PO, [place] capsule(Dep 00 Drug form: ekene) CAP, Q8H, Dosing Weight 86.364, kg, Start date: 11/27/22 16:00: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, Duration: 7 day, Stop date: 12/04/22 8:00: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, 0 valproic 2023-0 No 500 mg, 2 Jose Francisco zhang acid 250 mg 2-27 cap, l oral 22:00: Route: PO, [place] capsule(Dep 00 Drug form: ekene) CAP, Q8H, Dosing Weight 86.364, kg, Start date: 11/27/22 16:00: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, Duration: 7 day, Stop date: 12/04/22 8:00: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, 0 valproic 2023-0 No 500 mg, 2 Jose Francisco zhang acid 250 mg 2-27 cap, l oral 22:00: Route: PO, [place] capsule(Dep 00 Drug form: ekene) CAP, Q8H, Dosing Weight 86.364, kg, Start date: 11/27/22 16:00: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, Duration: 7 day, Stop date: 12/04/22 8:00: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, 0 valproic 2023-0 No 500 mg, 2 Jose Francisco zhang acid 250 mg 2-27 cap, l oral 22:00: Route: PO, [place] capsule(Dep 00 Drug form: ekene) CAP, Q8H, Dosing Weight 86.364, kg, Start date: 11/27/22 16:00: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, Duration: 7 day, Stop date: 12/04/22 8:00: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, 0 gabapentin 2023-0 No 100 mg, 1 Me moria 100 mg oral 2-27 cap, l capsule 17:20: Route: PO, Herm bernie 00 Drug form: CAP, Daily, Dosing Weight 86.364, kg, Priority: NOW, Start date: 11/27/22 11:20: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, Duration: 30 day, Stop date: 12/27/22 9:00:00 CDT, 0 gabapentin 2023-0 No 100 mg, 1 Me moria 100 mg oral 2-27 cap, l capsule 17:20: Route: PO, Herm bernie 00 Drug form: CAP, Daily, Dosing Weight 86.364, kg, Priority: NOW, Start date: 11/27/22 11:20: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, Duration: 30 day, Stop date: 12/27/22 9:00:00 CDT, 0 gabapentin 2023-0 No 100 mg, 1 Me moria 100 mg oral 2-27 cap, l capsule 17:20: Route: PO, Herm bernie 00 Drug form: CAP, Daily, Dosing Weight 86.364, kg, Priority: NOW, Start date: 11/27/22 11:20: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, Duration: 30 day, Stop date: 12/27/22 9:00:00 CDT, 0 gabapentin 2023-0 No 100 mg, 1 Me moria 100 mg oral 2-27 cap, l capsule 17:20: Route: PO, Herm bernie 00 Drug form: CAP, Daily, Dosing Weight 86.364, kg, Priority: NOW, Start date: 11/27/22 11:20: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, Duration: 30 day, Stop date: 12/27/22 9:00:00 CDT, 0 gabapentin 2023-0 No 100 mg, 1 Me moria 100 mg oral 2-27 cap, l capsule 17:20: Route: PO, Herm bernie Drug form: CAP, Daily, Dosing Weight 86.364, kg, Priority: NOW, Start date: 11/27/22 11:20: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, Duration: 30 day, Stop date: 12/27/22 9:00:00 CDT, 0 gabapentin 2023-0 No 100 mg, 1 Me moria 100 mg oral 2-27 cap, l capsule 17:20: Route: PO, Herm bernie 00 Drug form: CAP, Daily, Dosing Weight 86.364, kg, Priority: NOW, Start date: 11/27/22 11:20: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, Duration: 30 day, Stop date: 12/27/22 9:00:00 CDT, 0 gabapentin 2023-0 No 100 mg, 1 Me moria 100 mg oral 2-27 cap, l capsule 17:20: Route: PO, Herm bernie 00 Drug form: CAP, Daily, Dosing Weight 86.364, kg, Priority: NOW, Start date: 11/27/22 11:20: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, Duration: 30 day, Stop date: 12/27/22 9:00:00 CDT, 0 gabapentin 2023-0 No 100 mg, 1 Me moria 100 mg oral 2-27 cap, l capsule 17:20: Route: PO, Herm bernie Drug form: CAP, Daily, Dosing Weight 86.364, kg, Priority: NOW, Start date: 11/27/22 11:20: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, Duration: 30 day, Stop date: 12/27/22 9:00:00 CDT, 0 gabapentin 2023-0 No 100 mg, 1 Me moria 100 mg oral 2-27 cap, l capsule 17:20: Route: PO, Herm bernie 00 Drug form: CAP, Daily, Dosing Weight 86.364, kg, Priority: NOW, Start date: 11/27/22 11:20: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, Duration: 30 day, Stop date: 12/27/22 9:00:00 CDT, 0 gabapentin 2023-0 No 100 mg, 1 Me moria 100 mg oral 2-27 cap, l capsule 17:20: Route: PO, Herm bernie 00 Drug form: CAP, Daily, Dosing Weight 86.364, kg, Priority: NOW, Start date: 11/27/22 11:20: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, Duration: 30 day, Stop date: 12/27/22 9:00:00 CDT, 0 gabapentin 2023-0 No 100 mg, 1 Me moria 100 mg oral 2-27 cap, l capsule 17:20: Route: PO, Herm bernie 00 Drug form: CAP, Daily, Dosing Weight 86.364, kg, Priority: NOW, Start date: 11/27/22 11:20: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, Duration: 30 day, Stop date: 12/27/22 9:00:00 [...] 0.9% 2-27 (Same as: l 15:00: BD [place] 00 Posiflush) levETIRAcet No Notes: Jose Francisco zhang am 2-27 (Same l 15:00: as:Keppra) [place] 00 docusate No Notes: Memoria 2-27 (Same as: l 15:00: Colace) [place] 00 (Do Not Crush) senna No Notes: Memoria 2-27 (Same as: l 15:00: Senokot) [place] 00 Saline No Notes: Memoria Flush 0.9% 2-27 (Same as: l 15:00: BD [place] 00 Posiflush) levETIRAcet No Notes: Jose Francisco [...] zhang am 2-27 (Same l 15:00: as:Keppra) [place] 00 docusate No Notes: Memoria 2-27 (Same as: l 15:00: Colace) [place] 00 (Do Not Crush) senna No Notes: Memoria 2-27 (Same as: l 15:00: Senokot) [place] 00 Saline No Notes: Memoria Flush 0.9% 2-27 (Same as: l 15:00: BD [place] 00 Posiflush) levETIRAcet No Notes: Jose Francisco zhang am 2-27 (Same l 15:00: as:Keppra) [place] 00 docusate No Notes: Memoria 2-27 (Same as: l 15:00: Colace) [place] 00 (Do Not Crush) senna No Notes: Memoria 2-27 (Same as: l 15:00: Senokot) [place] 00 Saline No Notes: Memoria Flush 0.9% 2-27 (Same as: l 15:00: BD [place] 00 Posiflush) levETIRAcet No Notes: Jose Francisco zhang am 2-27 (Same l 15:00: as:Keppra) [place] 00 docusate No Notes: Memoria 2-27 (Same as: l 15:00: Colace) [place] 00 (Do Not Crush) senna No Notes: Memoria 2-27 (Same as: l 15:00: Senokot) [place] 00 Saline No Notes: Memoria Flush 0.9% 2-27 (Same as: l 15:00: BD [place] Posiflush) levETIRAcet No Notes: Jose Francisco zhang am 2-27 (Same l 15:00: as:Keppra) [place] docusate No Notes: Memoria 2-27 (Same as: l 15:00: Colace) [place] (Do Not Crush) senna No Notes: Memoria 2-27 (Same as: l 15:00: Senokot) Raul Saline No Notes: Memoria Flush 0.9% 2-27 (Same as: l 15:00: BD [place] 00 Posiflush) levETIRAcet No Notes: Jose Francisco zhang am 2-27 (Same l 15:00: as:Keppra) [place] 00 docusate No Notes: Memoria 2-27 (Same as: l 15:00: Colace) [place] (Do Not Crush) senna No Notes: Memoria 2-27 (Same as: l 15:00: Senokot) [place] 00 Saline No Notes: Memoria Flush 0.9% 2-27 (Same as: l 15:00: BD [place] 00 Posiflush) ondansetron No Notes: Jose Francisco zhang 2-27 [...] Weight 86.364, kg, Start date: 11/27/22 3:01: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, Duration: 3 doses or times, Stop date: 11/27/22 3:31: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, 0 Tylenol No Notes: Do Memor ia with -27 not exceed l Codeine #3 09:01: 4gm/day of H ermann oral tablet 00 acetaminop hen. (Same as: Tylenol with Codeine # 3) tramadol No Notes: Not Mem oria 2- to exceed l 09:01: 400mg/day. Raul 00 [...] Dulcolax, Bisco-Lax) ondansetron No Notes: Jose Francisco zhnag -27 (Same as: l 09:: Zofran) MEDICATION WASTE Product Size: 4 mg Product Wasted: ___ mg hydrALAZINE No Notes: Jose Francisco zhang 2-27 (Same as: l 09:: Apresoline ) Push over 5 minutes labetalol No 10 mg, 2 Jose Francisco zhang 2-27 mL, Route: l 09:: IVP, Drug form: INJ, Q15Min, Dosing Weight 86.364, kg, Start date: 11/27/22 3:01: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, Duration: 3 doses or times, Stop date: 11/27/22 3:31: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, 0 Tylenol No Notes: Do Memor ia with 2-27 not exceed l Codeine #3 09:01: 4gm/day of H ermann oral tablet 00 acetaminop hen. (Same as: Tylenol with Codeine # 3) tramadol No Notes: Not Mem oria 2-27 to exceed l 09:01: 400mg/day. [place] 00 (Same As: Ultram) Saline No Notes: [...] Weight 86.364, kg, Start date: 11/27/22 3:01: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, Duration: 3 doses or times, Stop date: 11/27/22 3:31: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, 0 Tylenol No Notes: Do Memor ia with 2-27 not exceed l Codeine #3 09:01: 4gm/day of H ermann oral tablet 00 acetaminop hen. (Same as: Tylenol with Codeine # 3) tramadol No Notes: Not Mem oria 2-27 to exceed l 09:01: 400mg/day. [place] (Same As: Ultram) Saline No Notes: Memoria [...] 11-27 not exceed l 09:: 4 gm/day. [place] 00 (Same as: Tylenol) bisacodyl No Notes: [...] Weight 86.364, kg, Start date: 11/27/22 3:01: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, Duration: 3 doses or times, Stop date: 11/27/22 3:31: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, 0 Tylenol No Notes: Do Memor ia with 2-27 not exceed l Codeine #3 09:01: 4gm/day of H ermann oral tablet 00 acetaminop hen. (Same as: Tylenol with Codeine # 3) tramadol No Notes: Not Mem oria 2-27 to exceed l 09:01: 400mg/day. [place] 00 (Same As: Ultram) Saline No Notes: [...] Weight 86.364, kg, Start date: 11/27/22 3:01: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, Duration: 3 doses or times, Stop date: 11/27/22 3:31: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, 0 Tylenol No Notes: Do Memor ia [...] - not exceed l 09:01: 4 gm/day. [place] 00 (Same as: Tylenol) bisacodyl No Notes: [...] Weight 86.364, kg, Start date: 11/27/22 3:01: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, Duration: 3 doses or times, Stop date: 11/27/22 3:31: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, 0 Tylenol No Notes: Do Memor ia [...] - not exceed l 09:: 4 gm/day. (Same [...] Weight 86.364, kg, Start date: 11/27/22 3:01: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, Duration: 3 doses or times, Stop date: 11/27/22 3:31: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, 0 Tylenol No Notes: Do Memor ia with 2-27 not exceed l Codeine #3 09:01: 4gm/day of H ermann oral tablet 00 acetaminop hen. (Same as: Tylenol with Codeine # 3) tramadol No Notes: Not Mem oria 2-27 to exceed l 09:01: 400mg/day. Raul (Same As: Ultram) Saline No Notes: Memoria Flush 0.9% 2-27 (Same as: l 09:: BD [place] 00 Posiflush) Insulin No Notes: Memoria regular 2-27 (Same as: l 09:: Humulin R) [place] 00 Roll in palms of hands gently; Do not shake vigorously . WASTE: F/P - Black; E - Municipal Trash Bin Stable for 31 days at room temperatur e Expires in days from ____Date acetaminoph No Notes: Do M emoria en -27 not exceed l 09:01: 4 gm/day. [place] (Same as: Tylenol) bisacodyl No Notes: Memori a 2-27 (Same As: l 09:: Dulcolax, [place] Bisco-Lax) ondansetron No Notes: Jose Francisco zhang [...] Weight 86.364, kg, Start date: 11/27/22 3:01: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, Duration: 3 doses or times, Stop date: 11/27/22 3:31: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, 0 Tylenol No Notes: Do Memor ia with 2-27 not exceed l Codeine #3 09:01: 4gm/day of H ermann oral tablet 00 acetaminop hen. (Same as: Tylenol with Codeine # 3) tramadol No Notes: Not Mem oria 2-27 to exceed l 09:01: 400mg/day. [place] 00 (Same As: Ultram) Saline No Notes: Memoria Flush 0.9% 2-27 (Same as: l 09:01: BD [place] Posiflush) Insulin No Notes: Memoria regular 2-27 [...] a 2-27 (Same As: l 09:: Dulcolax, [place] Bisco-Lax) ondansetron No Notes: Jose Francisco zhang [...] Weight 86.364, kg, Start date: 11/27/22 3:01: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, Duration: 3 doses or times, Stop date: 11/27/22 3:31: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, 0 Tylenol No Notes: Do Memor ia with 2-27 not exceed l Codeine #3 09:01: 4gm/day of H ermann oral tablet 00 acetaminop hen. (Same as: Tylenol with Codeine # 3) tramadol No Notes: Not Mem oria 2-27 to exceed l 09:01: 400mg/day. [place] 00 (Same As: Ultram) Saline No Notes: Memoria Flush 0.9% - (Same as: l 09:: BD [place] Posiflush) [...] - not exceed l 09:01: 4 gm/day. [place] (Same as: Tylenol) bisacodyl No Notes: Memori a - (Same As: l 09:: Dulcolax, [place] 00 Bisco-Lax) ondansetron No Notes: Jose Francisco [...] Weight 86.364, kg, Start date: 11/27/22 3:01: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, Duration: 3 doses or times, Stop date: 11/27/22 3:31: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, 0 Tylenol No Notes: Do Memor ia with 2-27 not exceed l Codeine #3 09:01: 4gm/day of H ermann oral tablet 00 acetaminop hen. (Same as: Tylenol with Codeine # 3) tramadol No Notes: Not Mem oria 2-27 to exceed l 09:01: 400mg/day. [place] (Same As: Ultram) Saline No Notes: Memoria Flush 0.9% - (Same as: l 09:01: BD [place] 00 Posiflush) Insulin No Notes: Memoria regular 2-27 (Same as: l 09:01: Humulin R) Ra[place] 00 Roll in palms of hands gently; Do not shake vigorously . WASTE: F/P - Black; E - Municipal Trash Bin Stable for 31 days at room temperatur e Expires in days from ____Date acetaminoph No Notes: Do M emoria en 2- not exceed l 09:01: 4 gm/day. [place] 00 (Same as: Tylenol) bisacodyl No Notes: [...] Weight 86.364, kg, Start date: 11/27/22 3:01: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, Duration: 3 doses or times, Stop date: 11/27/22 3:31: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, 0 Tylenol No Notes: Do Memor ia with 2-27 not exceed l Codeine #3 09:01: 4gm/day of H ermann oral tablet 00 acetaminop hen. (Same as: Tylenol with Codeine # 3) tramadol No Notes: Not Mem oria 2-27 to exceed l 09:01: 400mg/day. [place] (Same As: Ultram) Saline No Notes: Memoria Flush 0.9% - (Same as: l 09:: BD [place] 00 Posiflush) Insulin No Notes: Memoria regular -27 (Same as: l 09:01: Humulin R) [place] 00 Roll in palms of hands gently; Do not shake vigorously . WASTE: F/P - Black; E - Municipal Trash Bin Stable for 31 days at room temperatur e Expires in days from ____Date acetaminoph No Notes: Do M emoria en 11-27 not exceed l 09:01: 4 gm/day. (Same as: Tylenol) bisacodyl No Notes: Memori a 11-27 (Same As: l 09:01: Dulcolax, Bisco-Lax) acetaminoph No 1,000 mg, M emoria en 11-27 Route: PO, l 06:27: Drug form: [place] 00 TAB, ONCE, Dosing Weight 86.364, kg, Priority: STAT, Start date: 11/27/22 0:27: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, Stop date: 11/27/22 0:27: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 Keppra 2022-0 No 1,000 mg, Memori a 11-27 Route: l 06:27: IVPB, Drug form: INJ, ONCE, Dosing Weight 86.364, kg, Loading Dose, Priority: STAT, Start date: 11/27/22 0:27: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, Stop date: 11/27/22 0:27: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 acetaminoph 2022-0 No 1,000 mg, M emoria en 11-27 Route: PO, l 06:27: Drug form: [place] 00 TAB, ONCE, Dosing Weight 86.364, kg, Priority: STAT, Start date: 11/27/22 0:27: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, Stop date: 11/27/22 0:27: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 Keppra 2022-0 No 1,000 mg, Memori a 11-27 Route: l 06:27: IVPB, Drug form: INJ, ONCE, Dosing Weight 86.364, kg, Loading Dose, Priority: STAT, Start date: 11/27/22 0:27: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, Stop date: 11/27/22 0:27: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 acetaminoph 2022-0 No 1,000 mg, M emoria en 11-27 Route: PO, l 06:27: Drug form: [place] 00 TAB, ONCE, Dosing Weight 86.364, kg, Priority: STAT, Start date: 11/27/22 0:27: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, Stop date: 11/27/22 0:27: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 Keppra 2023-0 No 1,000 mg, Memori a 11-27 Route: l 06:27: IVPB, Drug [place] 00 form: INJ, ONCE, Dosing Weight 86.364, kg, Loading Dose, Priority: STAT, Start date: 11/27/22 0:27: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, Stop date: 11/27/22 0:27: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 acetaminoph 2023-0 No 1,000 mg, M emoria en 11-27 Route: PO, l 06:27: Drug form: [place] 00 TAB, ONCE, Dosing Weight 86.364, kg, Priority: STAT, Start date: 11/27/22 0:27: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, Stop date: 11/27/22 0:27: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 Keppra 2023-0 No 1,000 mg, Memori a 11-27 Route: l 06:27: IVPB, Drug [place] 00 form: INJ, ONCE, Dosing Weight 86.364, kg, Loading Dose, Priority: STAT, Start date: 11/27/22 0:27: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, Stop date: 11/27/22 0:27: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 acetaminoph 2023-0 No 1,000 mg, M emoria en 11-27 Route: PO, l 06:27: Drug form: [place] 00 TAB, ONCE, Dosing Weight 86.364, kg, Priority: STAT, Start date: 11/27/22 0:27: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, Stop date: 11/27/22 0:27: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 Keppra 2023-0 No 1,000 mg, Memori a 11-27 Route: l 06:27: IVPB, Drug [place] 00 form: INJ, ONCE, Dosing Weight 86.364, kg, Loading Dose, Priority: STAT, Start date: 11/27/22 0:27:00 RECYCLE DRIVER, Stop date: 11/27/22 0:27:00 RECYCLE DRIVER acetaminoph 2023-0 No 1,000 mg, M emoria en 11-27 Route: PO, l 06:27: Drug form: [place] 00 TAB, ONCE, Dosing Weight 86.364, kg, Priority: STAT, Start date: 11/27/22 0:27:00 RECYCLE DRIVER, Stop date: 11/27/22 0:27:00 RECYCLE DRIVER Keppra 2023-0 No 1,000 mg, Memori a 11-27 Route: l 06:27: IVPB, Drug [place] 00 form: INJ, ONCE, Dosing Weight 86.364, kg, Loading Dose, Priority: STAT, Start date: 11/27/22 0:27:00 RECYCLE DRIVER, Stop date: 11/27/22 0:27:00 RECYCLE DRIVER acetaminoph 2023-0 No 1,000 mg, M emoria en 11-27 Route: PO, l 06:27: Drug form: [place] 00 TAB, ONCE, Dosing Weight 86.364, kg, Priority: STAT, Start date: 11/27/22 0:27:00 RECYCLE DRIVER, Stop date: 11/27/22 0:27:00 RECYCLE DRIVER Keppra 2023-0 No 1,000 mg, Memori a 11-27 Route: l 06:27: IVPB, Drug [place] 00 form: INJ, ONCE, Dosing Weight 86.364, kg, Loading Dose, Priority: STAT, Start date: 11/27/22 0:27:00 RECYCLE DRIVER, Stop date: 11/27/22 0:27:00 RECYCLE DRIVER acetaminoph 2023-0 No 1,000 mg, M emoria en 11-27 Route: PO, l 06:27: Drug form: [place] 00 TAB, ONCE, Dosing Weight 86.364, kg, Priority: STAT, Start date: 11/27/22 0:27:00 RECYCLE DRIVER, Stop date: 11/27/22 0:27:00 RECYCLE DRIVER Keppra 2023-0 No 1,000 mg, Memori a 11-27 Route: l 06:27: IVPB, Drug [place] 00 form: INJ, ONCE, Dosing Weight 86.364, kg, Loading Dose, Priority: STAT, Start date: 11/27/22 0:27:00 RECYCLE DRIVER, Stop date: 11/27/22 0:27:00 RECYCLE DRIVER acetaminoph 2023-0 No 1,000 mg, M emoria en 11-27 Route: PO, l 06:27: Drug form: [place] 00 TAB, ONCE, Dosing Weight 86.364, kg, Priority: STAT, Start date: 11/27/22 0:27:00 RECYCLE DRIVER, Stop date: 11/27/22 0:27:00 RECYCLE DRIVER Keppra 2023-0 No 1,000 mg, Memori a 11-27 Route: l 06:27: IVPB, Drug [place] 00 form: INJ, ONCE, Dosing Weight 86.364, kg, Loading Dose, Priority: STAT, Start date: 11/27/22 0:27:00 RECYCLE DRIVER, Stop date: 11/27/22 0:27:00 RECYCLE DRIVER acetaminoph 2023-0 No 1,000 mg, M emoria en 11-27 Route: PO, l 06:27: Drug form: [place] 00 TAB, ONCE, Dosing Weight 86.364, kg, Priority: STAT, Start date: 11/27/22 0:27:00 RECYCLE DRIVER, Stop date: 11/27/22 0:27:00 RECYCLE DRIVER Keppra 3-0 No 1,000 mg, Memori a 11-27 Route: l 06:27: IVPB, Drug [place] 00 form: INJ, ONCE, Dosing Weight 86.364, kg, Loading Dose, Priority: STAT, Start date: 11/27/22 0:27:00 RECYCLE DRIVER, Stop date: 11/27/22 0:27:00 RECYCLE DRIVER acetaminoph 3-0 No 1,000 mg, M emoria en 11-27 Route: PO, l 06:27: Drug form: [place] 00 TAB, ONCE, Dosing Weight 86.364, kg, Priority: STAT, Start date: 11/27/22 0:27:00 RECYCLE DRIVER, Stop date: 11/27/22 0:27:00 RECYCLE DRIVER Keppra 3-0 No 1,000 mg, Memori a 11-27 Route: l 06:27: IVPB, Drug [place] 00 form: INJ, ONCE, Dosing Weight 86.364, kg, Loading Dose, Priority: STAT, Start date: 11/27/22 0:27:00 RECYCLE DRIVER, Stop date: 11/27/22 0:27:00 RECYCLE DRIVER heparin 2022-0 No Notes: Memoria 5000 2-22 [...] Ajay n injectable 00 solution Tylenol 0 No 1 tab, PO, Jose Francisco zhang with 2-22 Q6H, PRN l Codeine #3 19:14: Pain Score H ermann oral tablet 00 4-6, X 3 day, # 12 tab, 0 Refill(s), Pharmacy: [facility] #[id number], 149.86, cm, 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, Height, 86.364, kg, 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, Weight Tylenol 2022-0 Yes 1 tab, PO, Jose Francisco zhang with 2-22 Q6H, PRN l Codeine #3 19:14: Pain Score H ermann oral tablet 00 4-6, X 3 day, # 12 tab, 0 Refill(s), Pharmacy: [facility] #[id number], 149.86, cm, 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, Height, 86.364, kg, 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, Weight Tylenol 2022-0 No 1 tab, PO, Jose Francisco zhang with 2-22 Q6H, PRN l Codeine #3 19:14: Pain Score H ermann oral tablet 00 4-6, X 3 day, # 12 tab, 0 Refill(s), [facility]: [id number], 149.86, cm, 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, Height, 86.364, kg, 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, Weight Tylenol 2023-0 No 1 tab, PO, Jose Francisco zhang with 2-22 Q6H, PRN l Codeine #3 19:14: Pain Score H ermann oral tablet 00 4-6, X 3 day, # 12 tab, 0 Refill(s), Pharmacy: [id number], 149.86, cm, 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, Height, 86.364, kg, 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, Weight Tylenol 2023-0 No 1 tab, PO, Jose Francisco zhang with 2-22 Q6H, PRN l Codeine #3 19:14: Pain Score H ermann oral tablet 00 4-6, X 3 day, # 12 tab, 0 Refill(s), [facility]acy: [id number], 149.86, cm, 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, Height, 86.364, kg, 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, 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 Tylenol 2023-0 No 1 tab, PO, Jose Francisco zhang with 2-22 Q6H, PRN l Codeine #3 19:14: Pain Score H ermann oral tablet 00 4-6, X 3 day, # 12 tab, 0 Refill(s), [facility]acy: [id number], 149.86, cm, 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, 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, 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, kg, 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, 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 Tylenol 2023-0 No 1 tab, PO, Jose Francisco zhang with 2-22 Q6H, PRN l Codeine #3 19:14: Pain Score H ermann oral tablet 00 4-6, X 3 day, # 12 tab, 0 Refill(s), [facility]acy: [id number], 149.86, cm, 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, 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, 86.364, kg, 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, Weight Tylenol 2023-0 No 1 tab, PO, Jose Francisco zhang with 2-22 Q6H, PRN l Codeine #3 19:14: Pain Score H ermann oral tablet 00 4-6, X 3 day, # 12 tab, 0 Refill(s), Pharmacy: [id number], 149.86, cm, 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, 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, 86.364, kg, 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, Weight Tylenol 2023-0 No 1 tab, PO, Jose Francisco zhang with 2-22 Q6H, PRN l Codeine #3 19:14: Pain Score H ermann oral tablet 00 4-6, X 3 day, # 12 tab, 0 Refill(s), [facility]acy: [id number], 149.86, cm, 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, 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, 86.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, kg, 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, Weight Tylenol 2023-0 No 1 tab, PO, Jose Francisco zhang with 2-22 Q6H, PRN l Codeine #3 19:14: Pain Score H ermann oral tablet 00 4-6, X 3 day, # 12 tab, 0 Refill(s), [facility]acy: [id number], 149.86, cm, 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, 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, 86.364, kg, 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, Weight Tylenol 2023-0 No 1 tab, PO, Jose Francisco zhang with 2-22 Q6H, PRN l Codeine #3 19:14: Pain Score H ermann oral tablet 00 4-6, X 3 day, # 12 tab, 0 Refill(s), [facility]acy: [id number], 149.86, cm, 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, 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, 86.364, kg, 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, Weight Tylenol 2023-0 No 1 tab, PO, Jose Francisco zhang with 2-22 Q6H, PRN l Codeine #3 19:14: Pain Score H ermann oral tablet 00 4-6, X 3 day, # 12 tab, 0 Refill(s), [facility]acy: [id number], 149.86, cm, 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, 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, 86.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, kg, 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, 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 Tylenol 2022-0 Yes 1 tab, PO, Jose Francisco zhang with 2-22 Q6H, PRN l Codeine #3 19:14: Pain Score H ermann oral tablet 00 4-6, X 3 day, # 12 tab, 0 Refill(s), Pharmacy: [id number], 149.86, cm, 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, Height, 86.364, kg, 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, Weight gabapentin 2022-0 Yes 100 mg = 1 M emoria 100 mg oral 2-22 cap, PO, l capsule 19:13: Daily, # Ajay n 00 10 cap, 0 Refill(s), Pharmacy: [facility] #[id number], 149.86, cm, 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, Height, 86.364, kg, 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, Weight Keppra 500 2022-0 Yes 500 mg = 1 M emoria mg oral 2-22 tab, PO, l tablet 19:13: Q12H, # 12 Jessie nn 00 tab, 0 Refill(s), Pharmacy: [facility] #[id number], 149.86, cm, 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, 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, 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, kg, 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, Weight methocarbam 2022-0 Yes 500 mg = 1 Memoria ol 500 mg 2-22 tab, PO, l oral tablet 19:13: Q8H, X 10 H ermann 00 day, # 30 tab, 0 Refill(s), Pharmacy: [facility] #[id number], 149.86, cm, 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, Height, 86.364, kg, 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, Weight Zofran 4 mg 2022-0 Yes 4 mg = 1 Me moria oral tablet 2-22 tab, PO, l 19:13: Q8H, PRN [place] 00 Nausea/vom iting, X 7 day, # 21 tab, 0 Refill(s), [facility]: [id number], 149.86, cm, 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, Height, 86.364, kg, 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, Weight gabapentin 2022-0 Yes 100 mg = 1 M emoria 100 mg oral 2-22 cap, PO, l capsule 19:13: Daily, # Ajay n 00 10 cap, 0 Refill(s), [facility]: [id number], 149.86, cm, 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, Height, 86.364, kg, 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, Weight Keppra 500 2022-0 Yes 500 mg = 1 M emoria mg oral 2-22 tab, PO, l tablet 19:13: Q12H, # 12 Jessie nn 00 tab, 0 Refill(s), [facility]: [id number], 149.86, cm, 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, Height, 86.364, kg, 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, Weight methocarbam 2022-0 Yes 500 mg = 1 Memoria ol 500 mg 2-22 tab, PO, l oral tablet 19:13: Q8H, X 10 H ermann 00 day, # 30 tab, 0 Refill(s), [facility]: [id number], 149.86, cm, 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, Height, 86.364, kg, 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, Weight Zofran 4 mg 3-0 Yes 4 mg = 1 Me moria oral tablet 2-22 tab, PO, l 19:13: Q8H, PRN [place] 00 Nausea/vom iting, X 7 day, # 21 tab, 0 Refill(s), [facility]: [id number], 149.86, cm, 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, Height, 86.364, kg, 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, Weight gabapentin 2022-0 Yes 100 mg = 1 M emoria 100 mg oral 2-22 cap, PO, l capsule 19:13: Daily, # Ajay n 00 10 cap, 0 Refill(s), [facility]acy: [id number], 149.86, cm, 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, Height, 86.364, kg, 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, Weight Keppra 500 2022-0 Yes 500 mg = 1 M emoria mg oral 2-22 tab, PO, l tablet 19:13: Q12H, # 12 Jessie nn 00 tab, 0 Refill(s), [facility]acy: [id number], 149.86, cm, 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, Height, 86.364, kg, 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, Weight methocarbam 2022-0 Yes 500 mg = 1 Memoria ol 500 mg 2-22 tab, PO, l oral tablet 19:13: Q8H, X 10 H ermann 00 day, # 30 tab, 0 Refill(s), [facility]acy: [id number], 149.86, cm, 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, Height, 86.364, kg, 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, Weight Zofran 4 mg 3-0 Yes 4 mg = 1 Me moria oral tablet 2-22 tab, PO, l 19:13: Q8H, PRN [place] 00 Nausea/vom iting, X 7 day, # 21 tab, 0 Refill(s), [facility]acy: [id number], 149.86, cm, 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, Height, 86.364, kg, 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, Weight gabapentin 2022-0 Yes 100 mg = 1 M emoria 100 mg oral 2-22 cap, PO, l capsule 19:13: Daily, # Ajay n 00 10 cap, 0 Refill(s), [facility]acy: [id number], 149.86, cm, 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, Height, 86.364, kg, 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, Weight Keppra 500 2022-0 Yes 500 mg = 1 M emoria mg oral 2-22 tab, PO, l tablet 19:13: Q12H, # 12 Jessie nn 00 tab, 0 Refill(s), Pharmacy: [facility] #[id number], 149.86, cm, 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, Height, 86.364, kg, 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, Weight methocarbam 2022-0 Yes 500 mg = 1 Memoria ol 500 mg 2-22 tab, PO, l oral tablet 19:13: Q8H, X 10 H ermann 00 day, # 30 tab, 0 Refill(s), [facility]: [id number], 149.86, cm, 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, Height, 86.364, kg, 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, Weight Zofran 4 mg 2022-0 Yes 4 mg = 1 Me moria oral tablet 2-22 tab, PO, l 19:13: Q8H, PRN [place] 00 Nausea/vom iting, X 7 day, # 21 tab, 0 Refill(s), [facility]: [id number], 149.86, cm, 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, Height, 86.364, kg, 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, Weight gabapentin 2022-0 Yes 100 mg = 1 M emoria 100 mg oral 2-22 cap, PO, l capsule 19:13: Daily, # Ajay n 00 10 cap, 0 Refill(s), [facility]: [id number], 149.86, cm, 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, Height, 86.364, kg, 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, Weight Keppra 500 2022-0 Yes 500 mg = 1 M emoria mg oral 2-22 tab, PO, l tablet 19:13: Q12H, # 12 Jessie nn 00 tab, 0 Refill(s), [facility]: [id number], 149.86, cm, 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, Height, 86.364, kg, 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, Weight methocarbam 2022-0 Yes 500 mg = 1 Memoria ol 500 mg 2-22 tab, PO, l oral tablet 19:13: Q8H, X 10 H ermann 00 day, # 30 tab, 0 Refill(s), [facility]: [id number], 149.86, cm, 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, Height, 86.364, kg, 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, Weight Zofran 4 mg 2022-0 Yes 4 mg = 1 Me moria oral tablet 2-22 tab, PO, l 19:13: Q8H, PRN [place] 00 Nausea/vom iting, X 7 day, # 21 tab, 0 Refill(s), [facility]: [id number], 149.86, cm, 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, Height, 86.364, kg, 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, Weight gabapentin 2022-0 Yes 100 mg = 1 M emoria 100 mg oral 2-22 cap, PO, l capsule 19:13: Daily, # Ajay n 00 10 cap, 0 Refill(s), [facility]: [id number], 149.86, cm, 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, Height, 86.364, kg, 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, Weight Keppra 500 2022-0 Yes 500 mg = 1 M emoria mg oral 2-22 tab, PO, l tablet 19:13: Q12H, # 12 Jessie nn 00 tab, 0 Refill(s), [facility]: [id number], 149.86, cm, 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, Height, 86.364, kg, 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, Weight methocarbam 2022-0 Yes 500 mg = 1 Memoria ol 500 mg 2-22 tab, PO, l oral tablet 19:13: Q8H, X 10 H ermann 00 day, # 30 tab, 0 Refill(s), Pharmacy: [id number], 149.86, cm, 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, Height, 86.364, kg, 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, Weight Zofran 4 mg 2023-0 Yes 4 mg = 1 Me moria oral tablet 2-22 tab, PO, l 19:13: Q8H, PRN Raul 00 Nausea/vom iting, X 7 day, # 21 tab, 0 Refill(s), Pharmacy: [id number], 149.86, cm, 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, Height, 86.364, kg, 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, Weight gabapentin 2022-0 Yes 100 mg = 1 M emoria 100 mg oral 2-22 cap, PO, l capsule 19:13: Daily, # Ajay n 00 10 cap, 0 Refill(s), [facility]: [id number], 149.86, cm, 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, Height, 86.364, kg, 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, Weight Keppra 500 2022-0 Yes 500 mg = 1 M emoria mg oral 2-22 tab, PO, l tablet 19:13: Q12H, # 12 Jessie nn 00 tab, 0 Refill(s), [facility]: [id number], 149.86, cm, 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, Height, 86.364, kg, 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, Weight methocarbam 2022-0 Yes 500 mg = 1 Memoria ol 500 mg 2-22 tab, PO, l oral tablet 19:13: Q8H, X 10 H ermann 00 day, # 30 tab, 0 Refill(s), [facility]: [id number], 149.86, cm, 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, Height, 86.364, kg, 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, Weight Zofran 4 mg 3-0 Yes 4 mg = 1 Me moria oral tablet 2-22 tab, PO, l 19:13: Q8H, PRN [place] 00 Nausea/vom iting, X 7 day, # 21 tab, 0 Refill(s), Pharmacy: [id number], 149.86, cm, 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, Height, 86.364, kg, 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, Weight gabapentin 2022-0 Yes 100 mg = 1 M emoria 100 mg oral 2-22 cap, PO, l capsule 19:13: Daily, # Ajay n 00 10 cap, 0 Refill(s), [facility]: [id number], 149.86, cm, 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, Height, 86.364, kg, 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, Weight Keppra 500 2022-0 Yes 500 mg = 1 M emoria mg oral 2-22 tab, PO, l tablet 19:13: Q12H, # 12 Jessie nn 00 tab, 0 Refill(s), [facility]: [id number], 149.86, cm, 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, Height, 86.364, kg, 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, Weight methocarbam 2022-0 Yes 500 mg = 1 Memoria ol 500 mg 2-22 tab, PO, l oral tablet 19:13: Q8H, X 10 H ermann 00 day, # 30 tab, 0 Refill(s), [facility]: [id number], 149.86, cm, 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, Height, 86.364, kg, 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, Weight Zofran 4 mg 2022-0 Yes 4 mg = 1 Me moria oral tablet 2-22 tab, PO, l 19:13: Q8H, PRN [place] 00 Nausea/vom iting, X 7 day, # 21 tab, 0 Refill(s), [facility]: [id number], 149.86, cm, 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, Height, 86.364, kg, 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, Weight gabapentin 2022-0 Yes 100 mg = 1 M emoria 100 mg oral 2-22 cap, PO, l capsule 19:13: Daily, # Ajay n 00 10 cap, 0 Refill(s), Pharmacy: [id number], 149.86, cm, 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, Height, 86.364, kg, 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, Weight Keppra 500 3-0 Yes 500 mg = 1 M emoria mg oral 2-22 tab, PO, l tablet 19:13: Q12H, # 12 Jessie nn 00 tab, 0 Refill(s), [facility]: [id number], 149.86, cm, 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, Height, 86.364, kg, 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, Weight methocarbam 2022-0 Yes 500 mg = 1 Memoria ol 500 mg 2-22 tab, PO, l oral tablet 19:13: Q8H, X 10 H ermann 00 day, # 30 tab, 0 Refill(s), [facility]: [id number], 149.86, cm, 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, Height, 86.364, kg, 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, Weight Zofran 4 mg 3-0 Yes 4 mg = 1 Me moria oral tablet 2-22 tab, PO, l 19:13: Q8H, PRN Raul 00 Nausea/vom iting, X 7 day, # 21 tab, 0 Refill(s), [facility]: [id number], 149.86, cm, 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, Height, 86.364, kg, 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, Weight gabapentin 2022-0 Yes 100 mg = 1 M emoria 100 mg oral 2-22 cap, PO, l capsule 19:13: Daily, # Ajay n 00 10 cap, 0 Refill(s), [facility]: [id number], 149.86, cm, 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, Height, 86.364, kg, 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, Weight Keppra 500 3-0 Yes 500 mg = 1 M emoria mg oral 2-22 tab, PO, l tablet 19:13: Q12H, # 12 Jessie nn 00 tab, 0 Refill(s), Pharmacy: [id number], 149.86, cm, 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, Height, 86.364, kg, 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, Weight methocarbam 3-0 Yes 500 mg = 1 Memoria ol 500 mg 2-22 tab, PO, l oral tablet 19:13: Q8H, X 10 H ermann 00 day, # 30 tab, 0 Refill(s), [facility]: [id number], 149.86, cm, 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, Height, 86.364, kg, 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, Weight Zofran 4 mg 2022-0 Yes 4 mg = 1 Me moria oral tablet 2-22 tab, PO, l 19:13: Q8H, PRN Raul 00 Nausea/vom iting, X 7 day, # 21 tab, 0 Refill(s), [facility]acy: [id number], 149.86, cm, 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, Height, 86.364, kg, 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, Weight gabapentin 2022-0 Yes 100 mg = 1 M emoria 100 mg oral 2-22 cap, PO, l capsule 19:13: Daily, # Ajay n 00 10 cap, 0 Refill(s), [facility]: [id number], 149.86, cm, 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, Height, 86.364, kg, 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, Weight Keppra 500 3-0 Yes 500 mg = 1 M emoria mg oral 2-22 tab, PO, l tablet 19:13: Q12H, # 12 Jessie nn 00 tab, 0 Refill(s), [facility]acy: [id number], 149.86, cm, 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, Height, 86.364, kg, 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, Weight methocarbam 3-0 Yes 500 mg = 1 Memoria ol 500 mg 2-22 tab, PO, l oral tablet 19:13: Q8H, X 10 H ermann 00 day, # 30 tab, 0 Refill(s), [facility]acy: [id number], 149.86, cm, 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, Height, 86.364, kg, 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, Weight Zofran 4 mg 2022-0 Yes 4 mg = 1 Me moria oral tablet 2-22 tab, PO, l 19:13: Q8H, PRN [place] 00 Nausea/vom iting, X 7 day, # 21 tab, 0 Refill(s), [facility]: [id number], 149.86, cm, 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, Height, 86.364, kg, 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, Weight gabapentin 2022-0 Yes 100 mg = 1 M emoria 100 mg oral 2-22 cap, PO, l capsule 19:13: Daily, # Ajay n 00 10 cap, 0 Refill(s), [facility]: [id number], 149.86, cm, 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, Height, 86.364, kg, 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, Weight Keppra 500 2022-0 Yes 500 mg = 1 M emoria mg oral 2-22 tab, PO, l tablet 19:13: Q12H, # 12 Jessie nn 00 tab, 0 Refill(s), [facility]: [id number], 149.86, cm, 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, Height, 86.364, kg, 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, Weight methocarbam 3-0 Yes 500 mg = 1 Memoria ol 500 mg 2-22 tab, PO, l oral tablet 19:13: Q8H, X 10 H ermann 00 day, # 30 tab, 0 Refill(s), [facility]: [id number], 149.86, cm, 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, Height, 86.364, kg, 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, Weight Zofran 4 mg 3-0 Yes 4 mg = 1 Me moria oral tablet 2-22 tab, PO, l 19:13: Q8H, PRN [place] 00 Nausea/vom iting, X 7 day, # 21 tab, 0 Refill(s), [facility]: [id number], 149.86, cm, 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, Height, 86.364, kg, 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, Weight gabapentin 2022-0 Yes 100 mg = 1 M emoria 100 mg oral 2-22 cap, PO, l capsule 19:13: Daily, # Ajay n 00 10 cap, 0 Refill(s), [facility]: [id number], 149.86, cm, 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, Height, 86.364, kg, 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, Weight Keppra 500 2022-0 Yes 500 mg = 1 M emoria mg oral 2-22 tab, PO, l tablet 19:13: Q12H, # 12 Jessie nn 00 tab, 0 Refill(s), [facility]: [id number], 149.86, cm, 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, Height, 86.364, kg, 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, Weight methocarbam 2022-0 Yes 500 mg = 1 Memoria ol 500 mg 2-22 tab, PO, l oral tablet 19:13: Q8H, X 10 H ermann 00 day, # 30 tab, 0 Refill(s), [facility]: [id number], 149.86, cm, 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, Height, 86.364, kg, 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, Weight Zofran 4 mg 3-0 Yes 4 mg = 1 Me moria oral tablet 2-22 tab, PO, l 19:13: Q8H, PRN [place] 00 Nausea/vom iting, X 7 day, # 21 tab, 0 Refill(s), [facility]: [id number], 149.86, cm, 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, Height, 86.364, kg, 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, Weight donepezil No Notes: Memori a 2-22 (Same as: l 15:00: Aricept) [place] 00 ferrous No Notes: Memoria sulfate 2-22 Give with l 15:00: food. "Do [place] 00 Not Crush" Lasix No Notes: Memoria 2-22 (Same as: l 15:00: Lasix) January cause GI upset. Give with food or milk. levothyroxi No Notes: Jose Francisco zhang ne 2-22 Take 1 l 15:00: hour [place] 00 before or 2 hours after meal; [...] 00 mg, Route: PO, Daily, 11/22/22 9:00:00 RECYCLE DRIVER, Duration: 30 day, Stop date: 12/21/22 9:00:00 CDT donepezil No Notes: Memori a 2-22 (Same as: l 15:00: Aricept) [place] 00 ferrous No Notes: Memoria sulfate 2-22 Give with l 15:00: food. "Do [place] 00 Not Crush" Lasix No Notes: Memoria 2-22 (Same as: l 15:00: Lasix) January 00 cause GI upset. Give with food or milk. levothyroxi No Notes: Jose Francisco zhang ne 2-22 Take 1 l 15:00: hour [place] 00 before or 2 hours after meal; [...] 00 mg, Route: PO, Daily, 11/22/22 9:00:00 RECYCLE DRIVER, Duration: 30 day, Stop date: 12/21/22 9:00:00 CDT donepezil No Notes: Memori a 2-22 (Same as: l 15:00: Aricept) ferrous No Notes: Memoria sulfate 2-22 Give with l 15:00: food. "Do Not Crush" Lasix No Notes: Memoria 2-22 (Same as: l 15:00: Lasix) May cause GI upset. Give with food or milk. levothyroxi No Notes: Jose Francisco zahng ne 2-22 Take 1 l 15:00: hour [...] 00 mg, Route: PO, Daily, 11/22/22 9:00:00 RECYCLE DRIVER, Duration: 30 day, Stop date: 12/21/22 9:00:00 [...] 00 mg, Route: PO, Daily, 11/22/22 9:00:00 RECYCLE DRIVER, Duration: 30 day, Stop date: 12/21/22 9:00:00 CDT donepezil No Notes: Memori a 2-22 (Same as: l 15:00: Aricept) [place] 00 ferrous No Notes: Memoria sulfate 2-22 Give with l 15:00: food. "Do Raul 00 Not Crush" Lasix No Notes: Memoria 2-22 (Same as: l 15:00: Lasix) January cause GI upset. Give with food or milk. levothyroxi No Notes: Jose Francisco zhang ne 2-22 Take 1 l 15:00: hour [place] 00 before or 2 hours after meal; [...] 00 mg, Route: PO, Daily, 11/22/22 9:00:00 RECYCLE DRIVER, Duration: 30 day, Stop date: 12/21/22 9:00:00 CDT donepezil No Notes: Memori a 2-22 (Same as: l 15:00: Aricept) Raul 00 ferrous No Notes: Memoria sulfate 2-22 Give with l 15:00: food. "Do [place] 00 Not Crush" Lasix No Notes: Memoria 2-22 (Same as: l 15:00: Lasix) January cause GI upset. Give with food or milk. levothyroxi No Notes: Jose Francisco zhang ne 2-22 Take 1 l 15:00: hour [place] 00 before or 2 hours after meal; [...] 00 mg, Route: PO, Daily, 11/22/22 9:00:00 RECYCLE DRIVER, Duration: 30 day, Stop date: 12/21/22 9:00:00 CDT donepezil No Notes: Memori a 2-22 (Same as: l 15:00: Aricept) Raul 00 ferrous No Notes: Memoria sulfate 2-22 Give with l 15:00: food. "Do [place] 00 Not Crush" Lasix No Notes: Memoria 2-22 (Same as: l 15:00: Lasix) January [place] 00 cause GI upset. Give with food [...] 00 mg, Route: PO, Daily, 11/22/22 9:00:00 RECYCLE DRIVER, Duration: 30 day, Stop date: 12/21/22 9:00:00 CDT donepezil No Notes: Memori a 2-22 (Same as: l 15:00: Aricept) Raul 00 ferrous No Notes: Memoria sulfate 2-22 Give with l 15:00: food. "Do [place] 00 Not Crush" Lasix No Notes: Memoria 2-22 (Same as: l 15:00: Lasix) May 00 cause GI upset. Give with food or milk. levothyroxi No Notes: Jose Francisco zhang ne 2-22 Take 1 l 15:00: hour [place] 00 before or 2 hours after meal; [...] 00 mg, Route: PO, Daily, 11/22/22 9:00:00 RECYCLE DRIVER, Duration: 30 day, Stop date: 12/21/22 9:00:00 CDT donepezil No Notes: Memori a 2-22 (Same as: l 15:00: Aricept) Raul 00 ferrous No Notes: Memoria sulfate 2-22 Give with l 15:00: food. "Do Raul 00 Not Crush" Lasix No Notes: Memoria 2-22 (Same as: l 15:00: Lasix) May [place] 00 cause GI upset. Give with food [...] 00 mg, Route: PO, Daily, 11/22/22 9:00:00 RECYCLE DRIVER, Duration: 30 day, Stop date: 12/21/22 9:00:00 CDT donepezil No Notes: Memori a 2-22 (Same as: l 15:00: Aricept) Raul 00 ferrous No Notes: Memoria sulfate 2-22 Give with l 15:00: food. "Do [place] 00 Not Crush" Lasix No Notes: Memoria 2-22 (Same as: l 15:00: Lasix) May Raul 00 cause GI upset. Give with food or milk. levothyroxi No Notes: Jose Francisco zhang ne 2-22 Take 1 l 15:00: hour [place] 00 before or 2 hours after meal; [...] 00 mg, Route: PO, Daily, 11/22/22 9:00:00 RECYCLE DRIVER, Duration: 30 day, Stop date: 12/21/22 9:00:00 CDT donepezil No Notes: Memori a 2-22 (Same as: l 15:00: Aricept) [place] 00 ferrous No Notes: Memoria sulfate 2-22 [...] 00 mg, Route: PO, Daily, 11/22/22 9:00:00 RECYCLE DRIVER, Duration: 30 day, Stop date: 12/21/22 9:00:00 CDT Keppra 500 No Notes: Memor ia mg oral 2-22 (Same l tablet 03:00: as:Keppra) Jessie nn 00 Coreg No Notes: Memoria 2-22 Give with l 03:00: food. [place] 00 (Same As: Coreg) Lexapro 2022-0 No 20 mg, 2 Memori a 2-22 tab, l 03:00: Route: PO, Drug form: TAB, Q12H, Dosing Weight 86.364, kg, 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, Duration: 30 day, Stop date: 12/21/22 9:00:00 CDT, 0 Pepcid 40 0 No Notes: Memori a mg oral 2-22 (Same as: l tablet 03:00: Pepcid) lovastatin 2022-0 No 20 mg, 1 Mem oria 2-22 tab, l 03:00: Route: PO, Drug form: TAB, Bedtime, Dosing Weight 86.364, kg, 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, Duration: 30 day, Stop date: 12/20/22 21:00:00 CDT primidone 2022-0 No 50 mg, 1 Jose Francisco zhang 2-22 tab, l 03:00: Route: PO, Drug form: TAB, Bedtime, Dosing Weight 86.364, kg, 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, Duration: 30 day, Stop date: 12/20/22 21:00:00 CDT, 0 rOPINIRole 2022-0 No 4 mg, 2 Jose Francisco zhang 2-22 tab, l 03:00: Route: PO, Drug form: TAB, Q12H, Dosing Weight 86.364, kg, 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, Duration: 30 day, Stop date: 12/21/22 9:00:00 [...] Weight 86.364, kg, 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, Duration: 30 day, Stop date: 12/21/22 9:00:00 CDT, 0 Pepcid 40 2022-0 No Notes: Memori a mg oral 2-22 (Same as: l tablet 03:00: Pepcid) lovastatin 2022-0 No 20 mg, 1 Mem oria 2-22 tab, l 03:00: Route: PO, Drug form: TAB, Bedtime, Dosing Weight 86.364, kg, 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, Duration: 30 day, Stop date: 12/20/22 21:00:00 CDT primidone 2022-0 No 50 mg, 1 Jose Francisco zhang 2-22 tab, l 03:00: Route: PO, Drug form: TAB, Bedtime, Dosing Weight 86.364, kg, 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, Duration: 30 day, Stop date: 12/20/22 21:00:00 CDT, 0 rOPINIRole 2022-0 No 4 mg, 2 Jose Francisco zhang 2-22 tab, l 03:00: Route: PO, Drug form: TAB, Q12H, Dosing Weight 86.364, kg, 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, Duration: 30 day, Stop date: 12/21/22 9:00:00 [...] Weight 86.364, kg, 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, Duration: 30 day, Stop date: 12/21/22 9:00:00 CDT, 0 Pepcid 40 0 No Notes: Memori a mg oral 2-22 (Same as: l tablet 03:00: Pepcid) lovastatin 0 No 20 mg, 1 Mem oria 2-22 tab, l 03:00: Route: PO, Drug form: TAB, Bedtime, Dosing Weight 86.364, kg, 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, Duration: 30 day, Stop date: 12/20/22 21:00:00 CDT primidone 2022-0 No 50 mg, 1 Jose Francisco zhang 2-22 tab, l 03:00: Route: PO, Drug form: TAB, Bedtime, Dosing Weight 86.364, kg, 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, 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, Stop date: 12/20/22 21:00:00 CDT, 0 rOPINIRole 2022-0 No 4 mg, 2 Jose Francisco zhang 2-22 tab, l 03:00: Route: PO, Drug form: TAB, Q12H, Dosing Weight 86.364, kg, 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, Duration: 30 day, Stop date: 12/21/22 9:00:00 [...] Weight 86.364, kg, 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, Duration: 30 day, Stop date: 12/21/22 9:00:00 CDT, 0 Pepcid 40 2022-0 No Notes: Memori a mg oral 2-22 (Same as: l tablet 03:00: Pepcid) lovastatin 0 No 20 mg, 1 Mem oria 2-22 tab, l 03:00: Route: PO, Drug form: TAB, Bedtime, Dosing Weight 86.364, kg, 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, Duration: 30 day, Stop date: 12/20/22 21:00:00 CDT primidone 0 No 50 mg, 1 Jose Francisco zhang 2-22 tab, l 03:00: Route: PO, Drug form: TAB, Bedtime, Dosing Weight 86.364, kg, 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, Duration: 30 day, Stop date: 12/20/22 21:00:00 CDT, 0 rOPINIRole 0 No 4 mg, 2 Jose Francisco zhang 2-22 tab, l 03:00: Route: PO, Drug form: TAB, Q12H, Dosing Weight 86.364, kg, 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, Duration: 30 day, Stop date: 12/21/22 9:00:00 [...] Weight 86.364, kg, 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, Duration: 30 day, Stop date: 12/21/22 9:00:00 CDT, 0 Pepcid 40 0 No Notes: [facility] a mg oral 2-22 (Same as: l tablet 03:00: Pepcid) lovastatin 0 No 20 mg, 1 [facility] 2-22 tab, l 03:00: Route: PO, Drug form: TAB, Bedtime, Dosing Weight 86.364, kg, 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, Duration: 30 day, Stop date: 12/20/22 21:00:00 CDT primidone 2022-0 No 50 mg, 1 Jose Francisco zhang 2-22 tab, l 03:00: Route: PO, Drug form: TAB, Bedtime, Dosing Weight 86.364, kg, 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, Duration: 30 day, Stop date: 12/20/22 21:00:00 CDT, 0 rOPINIRole 0 No 4 mg, 2 Jose Francisco zhang 2-22 tab, l 03:00: Route: PO, Drug form: TAB, Q12H, Dosing Weight 86.364, kg, 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, Duration: 30 day, Stop date: 12/21/22 9:00:00 [...] Weight 86.364, kg, 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, Duration: 30 day, Stop date: 12/21/22 9:00:00 CDT, 0 Pepcid 40 No Notes: [facility] a mg oral 2-22 (Same as: l tablet 03:00: Pepcid) lovastatin 0 No 20 mg, 1 [facility] 2-22 tab, l 03:00: Route: PO, Drug form: TAB, Bedtime, Dosing Weight 86.364, kg, 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, Duration: 30 day, Stop date: 12/20/22 21:00:00 CDT primidone 2022-0 No 50 mg, 1 Jose Francisco zhang 2-22 tab, l 03:00: Route: PO, Drug form: TAB, Bedtime, Dosing Weight 86.364, kg, 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, Duration: 30 day, Stop date: 12/20/22 21:00:00 CDT, 0 rOPINIRole 2022-0 No 4 mg, 2 Jose Francisco zhang 2-22 tab, l 03:00: Route: PO, Drug form: TAB, Q12H, Dosing Weight 86.364, kg, 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, Duration: 30 day, Stop date: 12/21/22 9:00:00 [...] Weight 86.364, kg, 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, Duration: 30 day, Stop date: 12/21/22 9:00:00 CDT, 0 Pepcid 40 2022-0 No Notes: [facility] mg oral 2-22 (Same as: l tablet 03:00: Pepcid) lovastatin 0 No 20 mg, 1 [facility] 2-22 tab, l 03:00: Route: PO, Drug form: TAB, Bedtime, Dosing Weight 86.364, kg, 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, Duration: 30 day, Stop date: 12/20/22 21:00:00 CDT primidone 0 No 50 mg, 1 Jose Francisco zhang 2-22 tab, l 03:00: Route: PO, Drug form: TAB, Bedtime, Dosing Weight 86.364, kg, 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, Duration: 30 day, Stop date: 12/20/22 21:00:00 CDT, 0 rOPINIRole 0 No 4 mg, 2 Jose Francisco zhang 2-22 tab, l 03:00: Route: PO, Drug form: TAB, Q12H, Dosing Weight 86.364, kg, 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, Duration: 30 day, Stop date: 12/21/22 9:00:00 [...] Weight 86.364, kg, 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, Duration: 30 day, Stop date: 12/21/22 9:00:00 CDT, 0 Pepcid 40 2022-0 No Notes: [facility] mg oral 2-22 (Same as: l tablet 03:00: Pepcid) lovastatin 0 No 20 mg, 1 [facility] 2-22 tab, l 03:00: Route: PO, Drug form: TAB, Bedtime, Dosing Weight 86.364, kg, 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, Duration: 30 day, Stop date: 12/20/22 21:00:00 CDT primidone 2022-0 No 50 mg, 1 Jose Francisco zhang 2-22 tab, l 03:00: Route: PO, Drug form: TAB, Bedtime, Dosing Weight 86.364, kg, 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, Duration: 30 day, Stop date: 12/20/22 21:00:00 CDT, 0 rOPINIRole 2022-0 No 4 mg, 2 Jose Francisco zhang 2-22 tab, l 03:00: Route: PO, Drug form: TAB, Q12H, Dosing Weight 86.364, kg, 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, Duration: 30 day, Stop date: 12/21/22 9:00:00 [...] Weight 86.364, kg, 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, Duration: 30 day, Stop date: 12/21/22 9:00:00 CDT, 0 Pepcid 40 2022-0 No Notes: [facility] mg oral 2-22 (Same as: l tablet 03:00: Pepcid) lovastatin 2022-0 No 20 mg, 1 [facility] 2-22 tab, l 03:00: Route: PO, Drug form: TAB, Bedtime, Dosing Weight 86.364, kg, 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, Duration: 30 day, Stop date: 12/20/22 21:00:00 CDT primidone 2022-0 No 50 mg, 1 Jose Francisco zhang 2-22 tab, l 03:00: Route: PO, Raul 00 Drug form: TAB, Bedtime, Dosing Weight 86.364, kg, 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, Duration: 30 day, Stop date: 12/20/22 21:00:00 CDT, 0 rOPINIRole 2022-0 No 4 mg, 2 Jose Francisco zhang 2-22 tab, l 03:00: Route: PO, Drug form: TAB, Q12H, Dosing Weight 86.364, kg, 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, Duration: 30 day, Stop date: 12/21/22 9:00:00 [...] Weight 86.364, kg, 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, Duration: 30 day, Stop date: 12/21/22 9:00:00 CDT, 0 Pepcid 40 2022-0 No Notes: [facility] mg oral 2-22 (Same as: l tablet 03:00: Pepcid) lovastatin 2022-0 No 20 mg, 1 [facility] 2-22 tab, l 03:00: Route: PO, Drug form: TAB, Bedtime, Dosing Weight 86.364, kg, 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, Duration: 30 day, Stop date: 12/20/22 21:00:00 CDT primidone 2022-0 No 50 mg, 1 Jose Francisco zhang 2-22 tab, l 03:00: Route: PO, Drug form: TAB, Bedtime, Dosing Weight 86.364, kg, 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, Duration: 30 day, Stop date: 12/20/22 21:00:00 CDT, 0 rOPINIRole 2022-0 No 4 mg, 2 Jose Francisco zhang 2-22 tab, l 03:00: Route: PO, Drug form: TAB, Q12H, Dosing Weight 86.364, kg, 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, Duration: 30 day, Stop date: 12/21/22 9:00:00 [...] Weight 86.364, kg, 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, Duration: 30 day, Stop date: 12/21/22 9:00:00 CDT, 0 Pepcid 40 2022-0 No Notes: [facility] mg oral 2-22 (Same as: l tablet 03:00: Pepcid) lovastatin 2022-0 No 20 mg, 1 [facility] 2-22 tab, l 03:00: Route: PO, Drug form: TAB, Bedtime, Dosing Weight 86.364, kg, 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, Duration: 30 day, Stop date: 12/20/22 21:00:00 CDT primidone 2022-0 No 50 mg, 1 Jose Francisco zhang 2-22 tab, l 03:00: Route: PO, Drug form: TAB, Bedtime, Dosing Weight 86.364, kg, 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, Duration: 30 day, Stop date: 12/20/22 21:00:00 CDT, 0 rOPINIRole No 4 mg, 2 Jose Francisco zhang 2-22 tab, l 03:00: Route: PO, Drug form: TAB, Q12H, Dosing Weight 86.364, kg, 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, Duration: 30 day, Stop date: 12/21/22 9:00:00 CDT, 0 Lipitor No Notes: [facility] 2-22 (Same As: l 03:00: Lipitor) Raul 00 Robaxin No Notes: [facility] 2-22 (Same l 00:27: as:Robaxin [place] ) Robaxin No Notes: [facility] 2-22 (Same l 00:27: as:Robaxin [place] ) Robaxin No Notes: [facility] 2-22 (Same l 00:27: as:Robaxin [place] ) Robaxin No Notes: [facility] 2-22 (Same l 00:27: as:Robaxin [place] ) Robaxin No Notes: [facility] 2-22 (Same l 00:27: as:Robaxin [place] ) Robaxin No Notes: [facility] 2-22 (Same l 00:27: as:Robaxin [place] ) Robaxin No Notes: [facility] 2-22 (Same l 00:27: as:Robaxin [place] ) Robaxin No Notes: [facility] 2-22 (Same l 00:27: as:Robaxin [place] ) Robaxin 0 No Notes: [facility] 2-22 (Same l 00:27: as:Robaxin [place] ) Robaxin 0 No Notes: [facility] 2-22 (Same l 00:27: as:Robaxin [place] ) Robaxin 0 No Notes: [facility] 2-22 (Same l 00:27: as:Robaxin [place] ) Tylenol No Notes: Do [facility] with 2-22 not exceed l Codeine #3 00:21: 4gm/day of H ermann oral tablet 00 acetaminop hen. (Same as: Tylenol with Codeine # 3) Tylenol 2023-0 No Notes: Do [facility] [...] as: Tylenol with Codeine # 3) Tylenol 2022-0 No Notes: Do [facility] with 2-22 not exceed l Codeine #3 00:21: 4gm/day of H ermann oral tablet 00 acetaminop hen. (Same as: Tylenol with Codeine # 3) Tylenol 2023-0 No Notes: Do [facility] [...] Total Volume: 1,000, Start date: 11/21/22 16:13:00 RECYCLE DRIVER, Duration: 30 day, Stop date: 12/21/22 16:12:00 CDT, BSA: 1.93 m2, 0 normal 2023-0 No 1,000 mL, Mem[facility] a saline 0.9% 2-21 Rate: 75 l IV 1,000 mL 22:13: ml/hr, Herm bernie 00 Infuse over: 13.3 hr, Route: IV, Dosing Weight 86.364 kg, Total Volume: 1,000, Start date: 11/21/22 16:13:00 RECYCLE DRIVER, Duration: 30 day, Stop date: 12/21/22 16:12:00 CDT, BSA: 1.93 m2, 0 normal 2023-0 No 1,000 mL, Mem[facility] a saline 0.9% 2-21 Rate: 75 l IV 1,000 mL 22:13: ml/hr, Herm bernie 00 Infuse over: 13.3 hr, Route: IV, Dosing Weight 86.364 kg, Total Volume: 1,000, Start date: 11/21/22 16:13:00 RECYCLE DRIVER, Duration: 30 day, Stop date: 12/21/22 16:12:00 CDT, BSA: 1.93 m2, 0 normal 2023-0 No 1,000 mL, Mem[facility] a saline 0.9% 2-21 Rate: 75 l IV 1,000 mL 22:13: ml/hr, Herm bernie 00 Infuse over: 13.3 hr, Route: IV, Dosing Weight 86.364 kg, Total Volume: 1,000, Start date: 11/21/22 16:13:00 RECYCLE DRIVER, Duration: 30 day, Stop date: 12/21/22 16:12:00 CDT, BSA: 1.93 m2, 0 normal 2023-0 No 1,000 mL, Memori a saline 0.9% 2-21 Rate: 75 l IV 1,000 mL 22:13: ml/hr, Herm bernie 00 Infuse over: 13.3 hr, Route: IV, Dosing Weight 86.364 kg, Total Volume: 1,000, Start date: 11/21/22 16:13:00 RECYCLE DRIVER, Duration: 30 day, Stop date: 12/21/22 16:12:00 CDT, BSA: 1.93 m2, 0 normal 2023-0 No 1,000 mL, Memori a saline 0.9% 2-21 Rate: 75 l IV 1,000 mL 22:13: ml/hr, Herm bernie 00 Infuse over: 13.3 hr, Route: IV, Dosing Weight 86.364 kg, Total Volume: 1,000, Start date: 11/21/22 16:13:00 RECYCLE DRIVER, Duration: 30 day, Stop date: 12/21/22 16:12:00 CDT, BSA: 1.93 m2, 0 normal 2023-0 No 1,000 mL, Mem[facility] a saline 0.9% 2-21 Rate: 75 l IV 1,000 mL 22:13: ml/hr, Herm bernie 00 Infuse over: 13.3 hr, Route: IV, Dosing Weight 86.364 kg, Total Volume: 1,000, Start date: 11/21/22 16:13:00 RECYCLE DRIVER, Duration: 30 day, Stop date: 12/21/22 16:12:00 CDT, BSA: 1.93 m2, 0 normal 2023-0 No 1,000 mL, Mem[facility] a saline 0.9% 2-21 Rate: 75 l IV 1,000 mL 22:13: ml/hr, Herm bernie 00 Infuse over: 13.3 hr, Route: IV, Dosing Weight 86.364 kg, Total Volume: 1,000, Start date: 11/21/22 16:13:00 RECYCLE DRIVER, Duration: 30 day, Stop date: 12/21/22 16:12:00 CDT, BSA: 1.93 m2, 0 normal 2023-0 No 1,000 mL, Mem[facility] a saline 0.9% 2-21 Rate: 75 l IV 1,000 mL 22:13: ml/hr, Herm bernie 00 Infuse over: 13.3 hr, Route: IV, Dosing Weight 86.364 kg, Total Volume: 1,000, Start date: 11/21/22 16:13:00 RECYCLE DRIVER, Duration: 30 day, Stop date: 12/21/22 16:12:00 CDT, BSA: 1.93 m2, 0 normal 2023-0 No 1,000 mL, Mem[facility] a saline 0.9% 2-21 Rate: 75 l IV 1,000 mL 22:13: ml/hr, Herm bernie 00 Infuse over: 13.3 hr, Route: IV, Dosing Weight 86.364 kg, Total Volume: 1,000, Start date: 11/21/22 16:13:00 RECYCLE DRIVER, Duration: 30 day, Stop date: 12/21/22 16:12:00 CDT, BSA: 1.93 m2, 0 normal 2022- No 1,000 mL, [facility] a saline 0.9% 2-21 Rate: 75 l IV 1,000 mL 22:13: ml/hr, Herm bernie 00 Infuse over: 13.3 hr, Route: IV, Dosing Weight 86.364 kg, Total Volume: 1,000, Start date: 11/21/22 16:13:00 RECYCLE DRIVER, Duration: 30 day, Stop date: 12/21/22 16:12:00 CDT, BSA: 1.93 m2, 0 Voltaren 0 Yes 2 gm, TOP, [facility] Topical 1% 2-21 QID, PRN, l topical gel 18:29: 0 Ajay n 00 Refill(s) Vitamin D2 Yes 50,000 [facility] 50,000 intl 2-21 IntlUnit = l units (1.25 18:29: 1 cap, PO, [place] mg) oral 00 qWeek, capsule then 1 cap qmonth, 0 Refill(s) Vitamin D2 0 Yes 50,000 [facility] 50,000 intl 2-21 IntlUnit = l units (1.25 18:29: 1 cap, PO, [place] mg) oral 00 qWeek, capsule then 1 [...] l units (1.25 18:29: 1 cap, PO, [place] mg) oral 00 qWeek, capsule then 1 [...] l units (1.25 18:29: 1 cap, PO, [place] mg) oral 00 qWeek, capsule then 1 cap qmonth, 0 Refill(s) Voltaren 2023-0 Yes 2 gm, TOP, [facility] Topical 1% 2-21 QID, PRN, l topical gel 18:29: 0 Ajay n 00 Refill(s) Vitamin D2 Yes 50,000 [facility] 50,000 intl 2-21 IntlUnit = l units (1.25 18:29: 1 cap, PO, [place] mg) oral 00 qWeek, capsule then 1 [...] l units (1.25 18:29: 1 cap, PO, [place] mg) oral 00 qWeek, capsule then 1 [...] 18:29: 0 Ajay n 00 Refill(s) fluocinonid 3-0 Yes 1 appl, [...] 2-21 TOP, BID, l 0.05% 18:28: 0 [place] solution 00 Refill(s) ketoconazol 3-0 Yes 1 appl, [facility] e topical 2-21 TOP, BID, l 2% cream 18:28: 0 Raul 00 Refill(s) halobetasol 3-0 Yes 1 appl, [facility] topical 2-21 TOP, BID, l 0.05% cream 18:28: PRN, 0 Herm bernie 00 Refill(s) fluocinonid 3-0 Yes 1 appl, [facility] e topical 2-21 TOP, BID, l 0.05% 18:28: 0 [place] solution 00 Refill(s) ketoconazol 3-0 Yes 1 [...] TOP, BID, l 2% cream 18:28: 0 [place] 00 Refill(s) halobetasol 3-0 Yes 1 appl, [facility] topical 2-21 TOP, BID, l 0.05% cream 18:28: PRN, 0 Herm bernie 00 Refill(s) fluocinonid 3-0 Yes 1 appl, [facility] e topical 2-21 TOP, BID, l 0.05% 18:28: 0 [place] solution 00 Refill(s) ketoconazol 2023-0 Yes 1 appl, [facility] e topical 2-21 TOP, BID, l 2% cream 18:28: 0 Raul 00 Refill(s) halobetasol 2023-0 Yes 1 appl, [facility] topical 2-21 TOP, BID, l 0.05% cream 18:28: PRN, 0 Herm bernie 00 Refill(s) fluocinonid 2023-0 Yes 1 appl, [facility] e topical 2-21 TOP, BID, l 0.05% 18:28: 0 [place] solution 00 Refill(s) ketoconazol 2023-0 Yes 1 appl, [facility] e topical 2-21 TOP, BID, l 2% cream 18:28: 0 [place] 00 Refill(s) halobetasol 2023-0 Yes 1 appl, [facility] topical 2-21 TOP, BID, l 0.05% cream 18:28: PRN, 0 Herm bernie 00 Refill(s) fluocinonid 2023-0 Yes 1 appl, [facility] e topical 2-21 TOP, BID, l 0.05% 18:28: 0 [place] solution 00 Refill(s) ketoconazol 2023-0 Yes 1 appl, [facility] e topical 2-21 TOP, BID, l 2% cream 18:28: 0 [place] 00 Refill(s) halobetasol 2023-0 Yes 1 appl, [facility] topical 2-21 TOP, BID, l 0.05% cream 18:28: PRN, 0 Herm bernie 00 Refill(s) fluocinonid 2023-0 Yes 1 appl, [facility] e topical 2-21 TOP, BID, l 0.05% 18:28: 0 Raul solution 00 Refill(s) ketoconazol 3-0 Yes 1 appl, [facility] e topical 2-21 TOP, BID, l 2% cream 18:28: 0 [place] 00 Refill(s) halobetasol 2023-0 Yes 1 appl, [facility] topical 2-21 TOP, BID, l 0.05% cream 18:28: PRN, 0 Herm bernie 00 Refill(s) fluocinonid 2023-0 Yes 1 appl, [facility] e topical 2-21 TOP, BID, l 0.05% 18:28: 0 [place] solution 00 Refill(s) ketoconazol 2023-0 Yes 1 appl, [facility] e topical 2-21 TOP, BID, l 2% cream 18:28: 0 Raul 00 Refill(s) halobetasol 2023-0 Yes 1 appl, [facility] topical 2-21 TOP, BID, l 0.05% cream 18:28: PRN, 0 Herm bernie 00 Refill(s) fluocinonid 2023-0 Yes 1 appl, [facility] e topical 2-21 TOP, BID, l 0.05% 18:28: 0 [place] solution 00 Refill(s) ketoconazol 2022-0 Yes 1 appl, [facility] e topical 2-21 TOP, BID, l 2% cream 18:28: 0 [place] 00 Refill(s) halobetasol 2022-0 Yes 1 appl, [facility] topical 2-21 TOP, BID, l 0.05% cream 18:28: PRN, 0 Herm bernie 00 Refill(s) fluocinonid 2022-0 Yes 1 appl, [facility] e topical 2-21 TOP, BID, l 0.05% 18:28: 0 [place] solution 00 Refill(s) ketoconazol 0 Yes 1 [...] 2-21 tab, PO, l 18:27: Daily, 0 [place] 00 Refill(s) Pepcid 40 0 Yes 40 [...] 2-21 tab, PO, l 18:27: Daily, 0 [place] 00 Refill(s) Pepcid 40 2022-0 Yes 40 [...] 2-21 tab, PO, l 18:27: Daily, 0 [place] 00 Refill(s) Pepcid 40 2022-0 Yes 40 [...] 2-21 tab, PO, l 18:27: Daily, 0 [place] 00 Refill(s) Pepcid 40 2022-0 Yes 40 [...] 2-21 tab, PO, l 18:27: Daily, 0 [place] 00 Refill(s) Pepcid 40 2022-0 Yes 40 [...] 2-21 tab, PO, l 18:27: Daily, 0 [place] 00 Refill(s) Pepcid 40 2022-0 Yes 40 [...] 2-21 tab, PO, l 18:27: Daily, 0 [place] 00 Refill(s) Pepcid 40 2022-0 Yes 40 [...] Daily, 0 Raul 00 Refill(s) Pepcid 40 3-0 Yes 40 [...] 2-21 tab, PO, l 18:27: Daily, 0 [place] 00 Refill(s) Pepcid 40 Yes 40 mg [...] tab, PO, l tablet 18:26: Daily, 0 [place] 00 Refill(s) lovastatin 0 Yes 20 mg = 1 Me moria 20 mg oral 2-21 tab, PO, l tablet 18:26: Daily, 0 [place] 00 Refill(s) donepezil 0 Yes 10 mg = 1 [facility] 10 mg oral 2-21 tab, PO, l tablet 18:26: Daily, 0 [place] 00 Refill(s) NIFEdipine 0 Yes 30 mg [...] tab, PO, l tablet 18:26: Daily, 0 [place] 00 Refill(s) lovastatin 2022-0 Yes 20 mg [...] tab, PO, l tablet 18:26: Daily, 0 Arul 00 Refill(s) donepezil 2022-0 Yes 10 mg [...] tab, PO, l tablet 18:26: Daily, 0 [place] 00 Refill(s) lovastatin 2022-0 Yes 20 mg [...] tab, PO, l tablet 18:26: Daily, 0 [place] 00 Refill(s) lovastatin 2022-0 Yes 20 mg = 1 Me moria 20 mg oral 2-21 tab, PO, l tablet 18:26: Daily, 0 [place] 00 Refill(s) donepezil 2022-0 Yes 10 mg [...] tab, PO, l tablet 18:26: Daily, 0 [place] 00 Refill(s) lovastatin 2022-0 Yes 20 mg = 1 Me moria 20 mg oral 2-21 tab, PO, l tablet 18:26: Daily, 0 [place] 00 Refill(s) donepezil 2022-0 Yes 10 mg = 1 Mem [facility] 10 mg oral 2-21 tab, PO, l tablet 18:26: Daily, 0 [place] 00 Refill(s) NIFEdipine 2022-0 Yes 30 mg [...] tab, PO, l tablet 18:26: Daily, 0 [place] 00 Refill(s) donepezil 2022-0 Yes 10 mg [...] tab, PO, l tablet 18:26: Daily, 0 [place] 00 Refill(s) NIFEdipine 2022-0 Yes 30 mg [...] tab, PO, l tablet 18:26: Daily, 0 [place] 00 Refill(s) Coreg 25 mg 2022-0 Yes 25 mg = 1 M emoria oral tablet 2-21 tab, PO, l 18:25: BID, 0 [place] 00 Refill(s) Lexapro 20 2023-0 Yes 20 mg = 1 Me moria mg oral 2-21 tab, PO, l tablet 18:25: BID, 0 Raul 00 Refill(s) rOPINIRole 2023-0 Yes 4 mg = 1 [facility] 4 mg oral 2-21 tab, PO, l tablet 18:25: BID, 0 [place] 00 Refill(s) Coreg 25 mg 3-0 Yes 25 mg = 1 M emoria oral tablet 2-21 tab, PO, l 18:25: BID, 0 Raul 00 Refill(s) Lexapro 20 2023-0 Yes 20 mg = 1 Me moria mg oral 2-21 tab, PO, l tablet 18:25: BID, 0 [place] 00 Refill(s) rOPINIRole 2023-0 Yes 4 mg [...] tab, PO, l tablet 18:25: BID, 0 [place] 00 Refill(s) Coreg 25 mg 3-0 Yes [...] tab, PO, l tablet 18:25: BID, 0 [place] 00 Refill(s) Coreg 25 mg 2023-0 Yes 25 mg = 1 M emoria oral tablet 2-21 tab, PO, l 18:25: BID, 0 [place] 00 Refill(s) Lexapro 20 2023-0 Yes 20 mg = 1 Me moria mg oral 2-21 tab, PO, l tablet 18:25: BID, 0 [place] 00 Refill(s) rOPINIRole 2023-0 Yes 4 mg = 1 [facility] 4 mg oral 2-21 tab, PO, l tablet 18:25: BID, 0 Raul 00 Refill(s) Coreg 25 mg 3-0 Yes 25 mg = 1 M emoria oral tablet 2-21 tab, PO, l 18:25: BID, 0 [place] 00 Refill(s) Lexapro 20 2023-0 Yes 20 mg = 1 Me moria mg oral 2-21 tab, PO, l tablet 18:25: BID, 0 [place] 00 Refill(s) rOPINIRole 2023-0 Yes 4 mg = 1 [facility] 4 mg oral 2-21 tab, PO, l tablet 18:25: BID, 0 [place] 00 Refill(s) Coreg 25 mg 3-0 Yes 25 mg = 1 M emoria oral tablet 2-21 tab, PO, l 18:25: BID, 0 Raul 00 Refill(s) Lexapro 20 2023-0 Yes 20 mg = 1 Me moria mg oral 2-21 tab, PO, l tablet 18:25: BID, 0 [place] 00 Refill(s) rOPINIRole 2023-0 Yes 4 mg = 1 [facility] 4 mg oral 2-21 tab, PO, l tablet 18:25: BID, 0 [place] 00 Refill(s) Coreg 25 mg 3-0 Yes 25 mg = 1 M emoria oral tablet 2-21 tab, PO, l 18:25: BID, 0 Raul 00 Refill(s) Lexapro 20 2023-0 Yes 20 mg = 1 Me moria mg oral 2-21 tab, PO, l tablet 18:25: BID, 0 [place] 00 Refill(s) rOPINIRole 2023-0 Yes 4 mg = 1 [facility] 4 mg oral 2-21 tab, PO, l tablet 18:25: BID, 0 [place] 00 Refill(s) Coreg 25 mg 2023-0 Yes [...] 2-21 tab, PO, l 18:25: BID, 0 [place] 00 Refill(s) Lexapro 20 2023-0 Yes 20 mg = 1 Me moria mg oral 2-21 tab, PO, l tablet 18:25: BID, 0 [place] 00 Refill(s) rOPINIRole 2023-0 Yes 4 mg = 1 Mem [facility] 4 mg oral 2-21 tab, PO, l tablet 18:25: BID, 0 [place] 00 Refill(s) Coreg 25 mg 3-0 Yes 25 mg = 1 M emoria oral tablet 2-21 tab, PO, l 18:25: BID, 0 [place] 00 Refill(s) Lexapro 20 2023-0 Yes 20 mg = 1 Me moria mg oral 2-21 tab, PO, l tablet 18:25: BID, 0 [place] 00 Refill(s) rOPINIRole 2023-0 Yes 4 mg = 1 [facility] 4 mg oral 2-21 tab, PO, l tablet 18:25: BID, 0 [place] 00 Refill(s) Coreg 25 mg 3-0 Yes 25 mg = 1 M emoria oral tablet 2-21 tab, PO, l 18:25: BID, 0 [place] 00 Refill(s) Lexapro 20 2023-0 Yes 20 mg = 1 Me moria mg oral 2-21 tab, PO, l tablet 18:25: BID, 0 [place] 00 Refill(s) rOPINIRole 2023-0 Yes 4 mg = 1 [facility] 4 mg oral 2-21 tab, PO, l tablet 18:25: BID, 0 [place] 00 Refill(s) Coreg 25 mg 2023-0 Yes 25 mg = 1 M emoria oral tablet 2-21 tab, PO, l 18:25: BID, 0 [place] 00 Refill(s) Lexapro 20 2023-0 Yes 20 mg = 1 Me moria mg oral 2-21 tab, PO, l tablet 18:25: BID, 0 [place] 00 Refill(s) rOPINIRole 2023-0 Yes 4 mg = 1 [facility] 4 mg oral 2-21 tab, PO, l tablet 18:25: BID, 0 Raul 00 Refill(s) pantoprazol 2023-0 Yes 40 mg = 1 M emoria e 40 mg 2-21 tab, PO, l oral 18:24: BID, 0 [place] enteric 00 Refill(s) coated tablet pantoprazol 2023-0 Yes 40 mg = 1 M emoria e 40 mg 2-21 tab, PO, l oral 18:24: BID, 0 [place] enter[facility] 00 Refill(s) coated tablet pantoprazol 2023-0 Yes 40 mg = 1 M emoria e 40 mg 2-21 tab, PO, l oral 18:24: BID, 0 [place] enteric 00 Refill(s) coated tablet pantoprazol 2023-0 Yes 40 mg = 1 M emoria e 40 mg 2-21 tab, PO, l oral 18:24: BID, 0 [place] enteric 00 Refill(s) coated tablet pantoprazol 2023-0 Yes 40 mg = 1 M emoria e 40 mg 2-21 tab, PO, l oral 18:24: BID, 0 [place] enteric 00 Refill(s) coated tablet pantoprazol 2023-0 Yes 40 mg = 1 M emoria e 40 mg 2-21 tab, PO, l oral 18:24: BID, 0 [place] enteric 00 Refill(s) coated tablet pantoprazol 2023-0 Yes 40 mg = 1 M emoria e 40 mg 2-21 tab, PO, l oral 18:24: BID, 0 [place] enteric 00 Refill(s) coated tablet pantoprazol 2023-0 Yes 40 mg = 1 M emoria e 40 mg 2-21 tab, PO, l oral 18:24: BID, 0 [place] enteric 00 Refill(s) coated tablet pantoprazol 2023-0 Yes 40 mg = 1 M emoria e 40 mg 2-21 tab, PO, l oral 18:24: BID, 0 [place] enter[facility] 00 Refill(s) coated tablet pantoprazol 2023-0 Yes 40 mg = 1 M emoria e 40 mg 2-21 tab, PO, l oral 18:24: BID, 0 [place] [facility] 00 Refill(s) coated tablet pantoprazol 2023-0 Yes 40 mg = 1 M emoria e 40 mg 2-21 tab, PO, l oral 18:24: BID, 0 [place] [facility] 00 Refill(s) coated tablet pantoprazol 2023-0 Yes 40 mg = 1 M emoria e 40 mg 2-21 tab, PO, l oral 18:24: BID, 0 [facility] 00 Refill(s) coated tablet pantoprazol 2023-0 Yes 40 mg = 1 M emoria e 40 mg 2-21 tab, PO, l oral 18:24: BID, 0 [place] [facility] 00 Refill(s) coated tablet Wellbutrin 2023-0 [...] Memoria 2-21 (Same as: l 15:00: Senokot) lidocaine No Notes: Memori a topical 2-21 Patch is l 15:00: applied to [place] 00 intact skin to cover painful area [...] 0.9% 2-21 (Same as: l 15:00: BD [place] 00 Posiflush) levETIRAcet No Notes: Jose Francisco zhang am 2-21 Same as l 15:00: Keppra [place] 00 MEDICATION WASTE Product Size: 500 mg Product Wasted: ___ mg docusate No Notes: [facility] 2-21 (Same as: l 15:00: Colace) [place] 00 (Do Not Crush) senna No Notes: [facility]oria 2-21 (Same as: l 15:00: Senokot) [place] 00 lidocaine No Notes: Memori a topical 2-21 Patch is l 15:00: applied to [place] 00 intact skin to cover painful area [...] 2-21 Patch is l 15:00: applied to [place] 00 intact skin to cover painful area for up to 12 hours in a 24-hour period (12 hours on and 12 hours off). Please indicate the location of applicatio n site. Site 1: Remove old patch before applicatio n of new patch. (Same as Aspercreme Lidocaine Patch) Saline No Notes: [facility] Flush 0.9% 2-21 (Same as: l 15:00: BD [place] 00 Posiflush) levETIRAcet No Notes: Jose Francisco zhang am 2-21 Same as l 15:00: Keppra [place] 00 MEDICATION WASTE Product Size: 500 mg Product Wasted: ___ mg docusate No Notes: [facility] 2-21 (Same as: l 15:00: Colace) [place] 00 (Do Not Crush) senna No Notes: [facility] 2-21 (Same as: l 15:00: Senokot) [place] 00 lidocaine No Notes: Memori a topical [...] am 2-21 Same as l 15:00: Keppra [place] 00 MEDICATION WASTE Product Size: 500 mg Product Wasted: ___ mg docusate No Notes: [facility] 2-21 (Same as: l 15:00: Colace) [place] 00 (Do Not Crush) senna No Notes: [facility] 2-21 (Same as: l 15:00: Senokot) [place] 00 lidocaine No Notes: [facility]ori a topical [...] 0.9% 2-21 (Same as: l 15:00: BD [place] 00 Posiflush) levETIRAcet No Notes: Jose Francisco zhang am 2-21 Same as l 15:00: Keppra [place] 00 MEDICATION WASTE Product Size: 500 mg Product Wasted: ___ mg docusate No Notes: [facility] 2-21 (Same as: l 15:00: Colace) [place] 00 (Do Not Crush) senna No Notes: [facility] 2-21 (Same as: l 15:00: Senokot) [place] 00 lidocaine No Notes: [facility]ori a topical 2-21 Patch is l 15:00: applied to [place] intact skin to cover painful area for up to 12 hours in a 24-hour period (12 hours on and 12 hours off). Please indicate the location of applicatio n site. Site 1: Remove old patch before applicatio n of new patch. (Same as Aspercreme Lidocaine Patch) Saline No Notes: [facility] Flush 0.9% 2-21 (Same as: l 15:00: BD [place] 00 Posiflush) levETIRAcet No Notes: Jose Francisco zhang am 2-21 Same as l 15:00: Keppra [place] 00 MEDICATION WASTE Product Size: 500 mg Product Wasted: ___ mg docusate No Notes: [facility] 2-21 (Same as: l 15:00: Colace) [place] 00 (Do Not Crush) senna No Notes: [...] 0.9% 2-21 (Same as: l 15:00: BD [place] 00 Posiflush) levETIRAcet No Notes: Jose Francisco [...] 2-21 Patch is l 15:00: applied to [place] 00 intact skin to cover painful area for up to 12 hours in a 24-hour period (12 hours on and 12 hours off). Please indicate the location of applicatio n site. Site 1: Remove old patch before applicatio n of new patch. (Same as Aspercreme Lidocaine Patch) Saline No Notes: Memoria Flush 0.9% 2-21 (Same as: l 15:00: BD [place] 00 Posiflush) levETIRAcet No Notes: Jose Francisco zhang am 2-21 Same as l 15:00: Keppra [place] 00 MEDICATION WASTE Product Size: 500 mg Product Wasted: ___ mg docusate No Notes: Memoria 2-21 (Same as: l 15:00: Colace) [place] 00 (Do Not Crush) senna No Notes: Memoria 2-21 (Same as: l 15:00: Senokot) [place] 00 lidocaine No Notes: Memori a topical [...] Rate: 50 l 0.9% IV 14:47: ml/hr, [place] 1,000 mL 00 Infuse over: 20 hr, Route: IV, Dosing Weight 86.364 kg, Total Volume: 1,000, Start date: 11/21/22 8:47: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 [place] 00 (Same as: Tylenol) bisacodyl No Notes: [...] Weight 86.364, kg, Start date: 11/21/22 8:47:00 RECYCLE DRIVER, Duration: 3 doses or times, Stop date: 11/21/22 9:17:00 RECYCLE DRIVER, 0 Saline No Notes: Memoria Flush 0.9% 2-21 (Same as: l 14:47: BD [place] 00 Posiflush) Sodium No 1,000 mL, Memori a Chloride 2-21 Rate: 50 l 0.9% IV 14:47: ml/hr, [place] 1,000 mL 00 Infuse over: 20 hr, Route: IV, Dosing Weight 86.364 kg, Total Volume: 1,000, Start date: 11/21/22 8:47:00 RECYCLE DRIVER, Duration: 30 day, Stop date: 12/21/22 8:46:00 [...] Weight 86.364, kg, Start date: 11/21/22 8:47:00 RECYCLE DRIVER, Duration: 3 doses or times, Stop date: 11/21/22 9:17:00 RECYCLE DRIVER, 0 Saline No Notes: Memoria Flush 0.9% 2-21 (Same as: l 14:47: BD [place] 00 Posiflush) Sodium No 1,000 mL, Memori a Chloride 2-21 Rate: 50 l 0.9% IV 14:47: ml/hr, [place] 1,000 mL 00 Infuse over: 20 hr, Route: IV, Dosing Weight 86.364 kg, Total Volume: 1,000, Start date: 11/21/22 8:47: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 [place] 00 (Same as: Tylenol) bisacodyl No Notes: [...] Weight 86.364, kg, Start date: 11/21/22 8:47:00 RECYCLE DRIVER, Duration: 3 doses or times, Stop date: 11/21/22 9:17:00 RECYCLE DRIVER, 0 Saline No Notes: Memoria Flush 0.9% 2-21 (Same as: l 14:47: BD Posiflush) Sodium No 1,000 mL, Memori a Chloride 2-21 Rate: 50 l 0.9% IV 14:47: ml/hr, [place] 1,000 mL 00 Infuse over: 20 hr, Route: IV, Dosing Weight 86.364 kg, Total Volume: 1,000, Start date: 11/21/22 8:47: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 [place] 00 (Same as: Tylenol) bisacodyl No Notes: Memori a 2-21 (Same As: l 14:47: Dulcolax, [place] 00 Bisco-Lax) ondansetron No Notes: Jose Francisco [...] Weight 86.364, kg, Start date: 11/21/22 8:47:00 RECYCLE DRIVER, Duration: 3 doses or times, Stop date: 11/21/22 9:17:00 RECYCLE DRIVER, 0 Saline No Notes: Memoria Flush 0.9% 2-21 (Same as: l 14:47: BD Posiflush) Sodium No 1,000 mL, Memori a Chloride - Rate: 50 l 0.9% IV 14:47: ml/hr, [place] 1,000 mL 00 Infuse over: 20 hr, Route: IV, Dosing Weight 86.364 kg, Total Volume: 1,000, Start date: 11/21/22 8:47:00 RECYCLE DRIVER, Duration: 30 day, Stop date: 12/21/22 8:46:00 [...] Weight 86.364, kg, Start date: 11/21/22 8:47:00 RECYCLE DRIVER, Duration: 3 doses or times, Stop date: 11/21/22 9:17:00 RECYCLE DRIVER, 0 Saline No Notes: Memoria Flush 0.9% 2-21 (Same as: l 14:47: BD Posiflush) Sodium No 1,000 mL, Memori a Chloride 2-21 Rate: 50 l 0.9% IV 14:47: ml/hr, [place] 1,000 mL 00 Infuse over: 20 hr, Route: IV, Dosing Weight 86.364 kg, Total Volume: 1,000, Start date: 11/21/22 8:47:00 RECYCLE DRIVER, Duration: 30 day, Stop date: 12/21/22 8:46:00 [...] Weight 86.364, kg, Start date: 11/21/22 8:47:00 RECYCLE DRIVER, Duration: 3 doses or times, Stop date: 11/21/22 9:17:00 RECYCLE DRIVER, 0 Saline No Notes: Memoria Flush 0.9% 2-21 (Same as: l 14:47: BD [place] 00 Posiflush) Sodium No 1,000 mL, Memori a Chloride 2-21 Rate: 50 l 0.9% IV 14:47: ml/hr, [place] 1,000 mL 00 Infuse over: 20 hr, Route: IV, Dosing Weight 86.364 kg, Total Volume: 1,000, Start date: 11/21/22 8:47: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 [place] 00 (Same as: Tylenol) bisacodyl No Notes: [...] Weight 86.364, kg, Start date: 11/21/22 8:47:00 RECYCLE DRIVER, Duration: 3 doses or times, Stop date: 11/21/22 9:17:00 RECYCLE DRIVER, 0 Saline No Notes: Memoria Flush 0.9% 2-21 (Same as: l 14:47: BD [place] 00 Posiflush) Sodium No 1,000 mL, Memori a Chloride 2-21 Rate: 50 l 0.9% IV 14:47: ml/hr, [place] 1,000 mL 00 Infuse over: 20 hr, Route: IV, Dosing Weight 86.364 kg, Total Volume: 1,000, Start date: 11/21/22 8:47:00 RECYCLE DRIVER, Duration: 30 day, Stop date: 12/21/22 8:46:00 [...] Weight 86.364, kg, Start date: 11/21/22 8:47:00 RECYCLE DRIVER, Duration: 3 doses or times, Stop date: 11/21/22 9:17:00 RECYCLE DRIVER, 0 Saline No Notes: Memoria Flush 0.9% 2-21 (Same as: l 14:47: BD Posiflush) Sodium No 1,000 mL, Memori a Chloride 2-21 Rate: 50 l 0.9% IV 14:47: ml/hr, [place] 1,000 mL 00 Infuse over: 20 hr, Route: IV, Dosing Weight 86.364 kg, Total Volume: 1,000, Start date: 11/21/22 8:47:00 RECYCLE DRIVER, Duration: 30 day, Stop date: 12/21/22 8:46:00 [...] Weight 86.364, kg, Start date: 11/21/22 8:47:00 RECYCLE DRIVER, Duration: 3 doses or times, Stop date: 11/21/22 9:17:00 RECYCLE DRIVER, 0 Saline No Notes: Memoria Flush 0.9% 2-21 (Same as: l 14:47: BD Posiflush) Sodium No 1,000 mL, Memori a Chloride 2-21 Rate: 50 l 0.9% IV 14:47: ml/hr, [place] 1,000 mL 00 Infuse over: 20 hr, Route: IV, Dosing Weight 86.364 kg, Total Volume: 1,000, Start date: 11/21/22 8:47:00 RECYCLE DRIVER, Duration: 30 day, Stop date: 12/21/22 8:46:00 [...] Weight 86.364, kg, Start date: 11/21/22 8:47:00 RECYCLE DRIVER, Duration: 3 doses or times, Stop date: 11/21/22 9:17:00 RECYCLE DRIVER, 0 Saline No Notes: Memoria Flush 0.9% 2-21 (Same as: l 14:47: BD Posiflush) Sodium No 1,000 mL, Memori a Chloride 2-21 Rate: 50 l 0.9% IV 14:47: ml/hr, [place] 1,000 mL 00 Infuse over: 20 hr, Route: IV, Dosing Weight 86.364 kg, Total Volume: 1,000, Start date: 11/21/22 8:47:00 RECYCLE DRIVER, Duration: 30 day, Stop date: 12/21/22 8:46:00 [...] Weight 86.364, kg, Start date: 11/21/22 8:47:00 RECYCLE DRIVER, Duration: 3 doses or times, Stop date: 11/21/22 9:17:00 RECYCLE DRIVER, 0 Saline 2023-0 No Notes: Memoria Flush 0.9% 2-21 (Same as: l 14:47: BD Posiflush) Tylenol 2023-0 No 1,000 mg, Memor ia 2-21 Route: PO, l 14:03: ONCE, Dosing Weight 86.364, kg, Start date: 11/21/22 8:03:00 RECYCLE DRIVER, Stop date: 11/21/22 8:03:00 RECYCLE DRIVER Tylenol 2023-0 No 1,000 mg, Mem[facility] ia 2-21 Route: PO, l 14:03: ONCE, Dosing Weight 86.364, kg, Start date: 11/21/22 8:03:00 RECYCLE DRIVER, Stop date: 11/21/22 8:03:00 RECYCLE DRIVER Tylenol 2023-0 No 1,000 mg, Memor ia 2- Route: PO, l 14:03: ONCE, Dosing Weight 86.364, kg, Start date: 11/21/22 8:03:00 RECYCLE DRIVER, Stop date: 11/21/22 8:03:00 RECYCLE DRIVER Tylenol 2023-0 No 1,000 mg, Mem[facility] ia 2- Route: PO, l 14:03: ONCE, Dosing Weight 86.364, kg, Start date: 11/21/22 8:03:00 RECYCLE DRIVER, Stop date: 11/21/22 8:03:00 RECYCLE DRIVER Tylenol 2023-0 No 1,000 mg, Mem[facility] ia 2-21 Route: PO, l 14:03: ONCE, Dosing Weight 86.364, kg, Start date: 11/21/22 8:03:00 RECYCLE DRIVER, Stop date: 11/21/22 8:03:00 RECYCLE DRIVER Tylenol 2023-0 No 1,000 mg, Mem[facility] ia 2-21 Route: PO, l 14:03: ONCE, Dosing Weight 86.364, kg, Start date: 11/21/22 8:03:00 RECYCLE DRIVER, Stop date: 11/21/22 8:03:00 RECYCLE DRIVER Tylenol 2023-0 No 1,000 mg, Mem[facility] ia 2-21 Route: PO, l 14:03: ONCE, Dosing Weight 86.364, kg, Start date: 11/21/22 8:03:00 RECYCLE DRIVER, Stop date: 11/21/22 8:03:00 RECYCLE DRIVER Tylenol 2023-0 No 1,000 mg, Mem[facility] ia 2-21 Route: PO, l 14:03: ONCE, Dosing Weight 86.364, kg, Start date: 11/21/22 8:03:00 RECYCLE DRIVER, Stop date: 11/21/22 8:03:00 RECYCLE DRIVER Tylenol 2023-0 No 1,000 mg, Mem[facility] ia 2-21 Route: PO, l 14:03: ONCE, Dosing Weight 86.364, kg, Start date: 11/21/22 8:03:00 RECYCLE DRIVER, Stop date: 11/21/22 8:03:00 RECYCLE DRIVER Tylenol 2023-0 No 1,000 mg, Mem[facility] ia 2-21 Route: PO, l 14:03: ONCE, Dosing Weight 86.364, kg, Start date: 11/21/22 8:03:00 RECYCLE DRIVER, Stop date: 11/21/22 8:03:00 RECYCLE DRIVER Tylenol 2023-0 No 1,000 mg, Mem[facility] ia 2-21 Route: PO, l 14:03: ONCE, Dosing Weight 86.364, kg, Start date: 11/21/22 8:03:00 RECYCLE DRIVER, Stop date: 11/21/22 8:03:00 RECYCLE DRIVER Saline No Notes: Memoria Flush 0.9% 2-21 (Same as: l 12:05: BD [place] 00 Posiflush) Saline No Notes: Memoria Flush [...] 0.9% 2-21 (Same as: l 12:05: BD [place] 00 Posiflush) Saline No Notes: Memoria Flush 0.9% 2-21 (Same as: l 12:05: BD [place] 00 Posiflush) Saline No Notes: Memoria Flush 0.9% 2-21 (Same as: l 12:05: BD [place] 00 Posiflush) Saline No Notes: Memoria Flush 0.9% 2-21 (Same as: l 12:05: BD [place] 00 Posiflush) Saline No Notes: Memoria Flush 0.9% 2-21 (Same as: l 12:05: BD [place] 00 Posiflush) Saline No Notes: Memoria Flush 0.9% 2-21 (Same as: l 12:05: BD [place] 00 Posiflush) albuterol 2021-10 5mg 5 mg, Univer [...] nn 00 90 tab, 2 Refill(s), Pharmacy: [facility] #[id number], 149.86, cm, 11/02/21 14:32:00 RECYCLE DRIVER, Height, 90.455, kg, 11/02/21 14:32:00 RECYCLE DRIVER, Weight primidone 0 Yes 50 mg = 1 Mem oria 50 mg oral 2-02 tab, PO, l tablet 20:46: Bedtime, # Jessie nn 00 90 tab, 2 Refill(s), Pharmacy: [facility] #[id number], 149.86, cm, 11/02/21 14:32:00 RECYCLE DRIVER, Height, 90.455, kg, 11/02/21 14:32:00 RECYCLE DRIVER, Weight primidone 2021-0 Yes 50 mg = 1 Mem oria 50 mg oral 2-02 tab, PO, l tablet 20:46: Bedtime, # Jessie nn 00 90 tab, 2 Refill(s), Pharmacy: [facility] #[id number], 149.86, cm, 11/02/21 14:32:00 RECYCLE DRIVER, Height, 90.455, kg, 11/02/21 14:32:00 RECYCLE DRIVER, Weight primidone 2-0 Yes 50 mg = 1 Mem oria 50 mg oral 2-02 tab, PO, l tablet 20:46: Bedtime, # Jessie nn 00 90 tab, 2 Refill(s), Pharmacy: [facility] #[id number], 149.86, cm, 11/02/21 14:32:00 RECYCLE DRIVER, Height, 90.455, kg, 11/02/21 14:32:00 RECYCLE DRIVER, Weight primidone 2021-0 Yes 50 mg = 1 Mem oria 50 mg oral 2-02 tab, PO, l tablet 20:46: Bedtime, # Jessie nn 00 90 tab, 2 Refill(s), Pharmacy: [facility] #[id number], 149.86, cm, 11/02/21 14:32:00 RECYCLE DRIVER, Height, 90.455, kg, 11/02/21 14:32:00 RECYCLE DRIVER, Weight primidone 2021-0 Yes 50 mg = 1 Mem oria 50 mg oral 2-02 tab, PO, l tablet 20:46: Bedtime, # Jessie nn 00 90 tab, 2 Refill(s), [facility]acy: [facility] #[id number], 149.86, cm, 11/02/21 14:32:00 RECYCLE DRIVER, Height, 90.455, kg, 11/02/21 14:32:00 RECYCLE DRIVER, Weight primidone 2-0 Yes 50 mg = 1 Mem oria 50 mg oral 2-02 tab, PO, l tablet 20:46: Bedtime, # Jessie nn 00 90 tab, 2 Refill(s), Pharmacy: [facility] #[id number], 149.86, cm, 11/02/21 14:32:00 RECYCLE DRIVER, Height, 90.455, kg, 11/02/21 14:32:00 RECYCLE DRIVER, Weight primidone 2022-0 Yes 50 mg = 1 Mem oria 50 mg oral 2-02 tab, PO, l tablet 20:46: Bedtime, # Jessie nn 00 90 tab, 2 Refill(s), [facility]acy: [facility] #[id number], 149.86, cm, 11/02/21 14:32:00 RECYCLE DRIVER, Height, 90.455, kg, 11/02/21 14:32:00 RECYCLE DRIVER, Weight primidone 2022-0 Yes 50 mg = 1 Mem oria 50 mg oral 2-02 tab, PO, l tablet 20:46: Bedtime, # Jessie nn 00 90 tab, 2 Refill(s), Pharmacy: [facility] #[id number], 149.86, cm, 11/02/21 14:32:00 RECYCLE DRIVER, Height, 90.455, kg, 11/02/21 14:32:00 RECYCLE DRIVER, Weight primidone 2022-0 Yes 50 mg = 1 Mem oria 50 mg oral 2-02 tab, PO, l tablet 20:46: Bedtime, # Jessie nn 00 90 tab, 2 Refill(s), Pharmacy: [facility] #[id number], 149.86, cm, 11/02/21 14:32:00 RECYCLE DRIVER, Height, 90.455, kg, 11/02/21 14:32:00 RECYCLE DRIVER, Weight primidone 2022-0 Yes 50 mg = 1 Mem oria 50 mg oral 2-02 tab, PO, l tablet 20:46: Bedtime, # Jessie nn 00 90 tab, 2 Refill(s), Pharmacy: [facility] #[id number], 149.86, cm, 11/02/21 14:32:00 RECYCLE DRIVER, Height, 90.455, kg, 11/02/21 14:32:00 RECYCLE DRIVER, Weight primidone 2022-0 Yes 50 mg = 1 Mem oria 50 mg oral 2-02 tab, PO, l tablet 20:46: Bedtime, # Jessie nn 00 90 tab, 2 Refill(s), Pharmacy: [facility] #[id number], 149.86, cm, 11/02/21 14:32:00 RECYCLE DRIVER, Height, 90.455, kg, 11/02/21 14:32:00 RECYCLE DRIVER, Weight primidone 2022-0 Yes 50 mg = 1 Mem oria 50 mg oral 2-02 tab, PO, l tablet 20:46: Bedtime, # Jessie nn 00 90 tab, 2 Refill(s), Pharmacy: [facility] #[id number], 149.86, cm, 11/02/21 14:32:00 RECYCLE DRIVER, Height, 90.455, kg, 11/02/21 14:32:00 RECYCLE DRIVER, Weight primidone 2022-0 Yes 50 mg = 1 Mem oria 50 mg oral 2-02 tab, PO, l tablet 20:46: Bedtime, # Jessie nn 00 90 tab, 2 Refill(s), Pharmacy: [facility] #[id number], 149.86, cm, 11/02/21 14:32:00 RECYCLE DRIVER, Height, 90.455, kg, 11/02/21 14:32:00 RECYCLE DRIVER, Weight primidone 2022-0 Yes 50 mg = 1 Mem oria 50 mg oral 2-02 tab, PO, l tablet 20:46: Bedtime, # Jessie nn 00 90 tab, 2 Refill(s), Pharmacy: [facility] #[id number], 149.86, cm, 11/02/21 14:32:00 RECYCLE DRIVER, Height, 90.455, kg, 11/02/21 14:32:00 RECYCLE DRIVER, Weight primidone 2022-0 Yes 50 mg = 1 Mem oria 50 mg oral 2-02 tab, PO, l tablet 20:46: Bedtime, # Jessie nn 00 90 tab, 2 Refill(s), Pharmacy: [facility] #[id number], 149.86, cm, 11/02/21 14:32:00 RECYCLE DRIVER, Height, 90.455, kg, 11/02/21 14:32:00 RECYCLE DRIVER, Weight primidone 2022-0 Yes 50 mg = 1 Mem oria 50 mg oral 2-02 tab, PO, l tablet 20:46: Bedtime, # Jessie nn 00 90 tab, 2 Refill(s), Pharmacy: [facility] #[id number], 149.86, cm, 11/02/21 14:32:00 RECYCLE DRIVER, Height, 90.455, kg, 11/02/21 14:32:00 RECYCLE DRIVER, Weight primidone 2022-0 Yes 50 mg = 1 Mem oria 50 mg oral 2-02 tab, PO, l tablet 20:46: Bedtime, # Jessie nn 00 90 tab, 2 Refill(s), Pharmacy: [facility] #[id number], 149.86, cm, 11/02/21 14:32:00 RECYCLE DRIVER, Height, 90.455, kg, 11/02/21 14:32:00 RECYCLE DRIVER, Weight NIFEdipine Yes TAKE 1 Memor ia (Eqv-Adalat 2-02 TABLET BY l CC) 30 mg 20:38: MOUTH [place] oral 00 EVERY DAY tablet, ON EMPTY extended STOMACH release FOR 30 DAYS Furosemide Yes TAKE 1 Memor ia 40 MG Oral 2-02 TABLET BY l Tablet 20:38: MOUTH [place] 00 EVERY DAY NEEDED FOR SWELLING tramadol [...] CAPSULE BY l MG Oral 20:38: MOUTH [place] Capsule 00 TWICE A DAY Colestipol Yes TAKE 1 Memor ia Hydrochlori 2-02 TABLET BY l de 1000 MG 20:38: MOUTH Ajay n Oral Tablet 00 TWICE A DAY pantoprazol Yes TAKE 1 Jose Francisco zhang e 40 mg 2-02 TABLET BY l oral 20:38: MOUTH 2 [place] enteric 00 TIMES coated DAILY HALF tablet HOUR BEFORE BREAKFAST OR FIRST MEAL oxybutynin Yes TAKE 1 Memor ia 5 mg oral 2-02 TABLET BY l tablet 20:38: MOUTH [place] 00 THREE TIMES A DAY NIFEdipine Yes TAKE 1 Memor ia (Eqv-Adalat 2-02 TABLET BY l CC) 30 mg 20:38: MOUTH [place] oral 00 EVERY DAY tablet, ON EMPTY extended STOMACH release FOR 30 DAYS Furosemide Yes TAKE 1 Memor ia 40 MG Oral 2-02 TABLET BY l Tablet 20:38: MOUTH [place] 00 EVERY DAY NEEDED FOR SWELLING tramadol Yes TAKE 1 Memoria hydrochlori 2-02 TABLET BY l de 50 MG 20:38: MOUTH [place] Oral Tablet 00 EVERY 6 TO 8 HOURS NEEDED predniSONE Yes TAKE 1 Memor ia 10 mg oral 2-02 TABLET BY l tablet 20:38: MOUTH [place] 00 EVERY DAY FOR 90 DAYS doxycycline Yes TAKE 1 Jose Francisco zhang hyclate 100 2-02 CAPSULE BY l MG Oral 20:38: MOUTH [place] Capsule 00 TWICE A DAY Colestipol Yes [...] 2-02 TABLET BY l tablet 20:38: MOUTH [place] 00 THREE TIMES A DAY NIFEdipine Yes TAKE 1 Memor ia (Eqv-Adalat 2-02 TABLET BY l CC) 30 mg 20:38: MOUTH [place] oral 00 EVERY DAY tablet, ON EMPTY [...] CAPSULE BY l MG Oral 20:38: MOUTH [place] Capsule 00 TWICE A DAY Colestipol Yes TAKE 1 Memor ia Hydrochlori 2-02 TABLET BY l de 1000 MG 20:38: MOUTH Ajay n Oral Tablet 00 TWICE A DAY pantoprazol Yes TAKE 1 Jose Francisco zhang e 40 mg 2-02 TABLET BY l oral 20:38: MOUTH 2 [place] enteric 00 TIMES coated DAILY HALF tablet HOUR BEFORE BREAKFAST OR FIRST MEAL oxybutynin Yes TAKE 1 Memor ia 5 mg oral 2-02 TABLET BY l tablet 20:38: MOUTH [place] 00 THREE TIMES A DAY NIFEdipine Yes TAKE 1 Memor ia (Eqv-Adalat 2-02 TABLET BY l CC) 30 mg 20:38: MOUTH [place] oral 00 EVERY DAY tablet, ON EMPTY extended STOMACH release FOR 30 DAYS Furosemide Yes TAKE 1 Memor ia 40 MG Oral 2-02 TABLET BY l Tablet 20:38: MOUTH [place] 00 EVERY DAY NEEDED FOR SWELLING tramadol Yes TAKE 1 Memoria hydrochlori 2-02 TABLET BY l de 50 MG 20:38: MOUTH [place] Oral Tablet 00 EVERY 6 TO 8 HOURS NEEDED predniSONE Yes TAKE 1 Memor ia 10 mg oral 2-02 TABLET BY l tablet 20:38: MOUTH [place] 00 EVERY DAY FOR 90 DAYS doxycycline Yes TAKE 1 Jose Francisco zhang hyclate 100 2-02 CAPSULE BY l MG Oral 20:38: MOUTH [place] Capsule 00 TWICE A DAY Colestipol Yes [...] 2-02 TABLET BY l tablet 20:38: MOUTH [place] 00 THREE TIMES A DAY NIFEdipine Yes TAKE 1 Memor ia (Eqv-Adalat 2-02 TABLET BY l CC) 30 mg 20:38: MOUTH [place] oral 00 EVERY DAY tablet, ON EMPTY extended STOMACH release FOR 30 DAYS Furosemide Yes TAKE 1 Memor ia 40 MG Oral 2-02 TABLET BY l Tablet 20:38: MOUTH [place] 00 EVERY DAY NEEDED FOR SWELLING tramadol Yes TAKE 1 Memoria hydrochlori 2-02 TABLET BY l de 50 MG 20:38: MOUTH [place] Oral Tablet 00 EVERY 6 TO 8 [...] 2-02 TABLET BY l tablet 20:38: MOUTH [place] 00 THREE TIMES A DAY NIFEdipine Yes TAKE 1 Memor ia (Eqv-Adalat 2-02 TABLET BY l CC) 30 mg 20:38: MOUTH [place] oral 00 EVERY DAY tablet, ON EMPTY extended STOMACH release FOR 30 DAYS Furosemide Yes TAKE 1 Memor ia 40 MG Oral 2-02 TABLET BY l Tablet 20:38: MOUTH [place] 00 EVERY DAY NEEDED FOR SWELLING tramadol Yes TAKE 1 Memoria hydrochlori 2-02 TABLET BY l de 50 MG 20:38: MOUTH [place] Oral Tablet 00 EVERY 6 TO 8 HOURS NEEDED predniSONE Yes TAKE 1 Memor ia 10 mg oral 2-02 TABLET BY l tablet 20:38: MOUTH [place] 00 EVERY DAY FOR 90 DAYS doxycycline [...] 2-02 TABLET BY l tablet 20:38: MOUTH [place] 00 THREE TIMES A DAY NIFEdipine Yes TAKE 1 Mem[facility] ia (Eqv-Adalat 2-02 TABLET BY l CC) 30 mg 20:38: MOUTH [place] oral 00 EVERY DAY tablet, ON EMPTY extended STOMACH release FOR 30 DAYS Furosemide Yes TAKE 1 Mem[facility] ia 40 MG Oral 2-02 TABLET BY l Tablet 20:38: MOUTH [place] 00 EVERY DAY NEEDED FOR SWELLING tramadol Yes TAKE 1 Mem[facility] hydrochlori 2-02 TABLET BY l de 50 MG 20:38: MOUTH [place] Oral Tablet 00 EVERY 6 TO 8 [...] TABLET BY l oral 20:38: MOUTH 2 [place] enteric 00 TIMES coated DAILY HALF tablet HOUR BEFORE BREAKFAST OR FIRST MEAL oxybutynin Yes TAKE 1 Mem[facility] ia 5 mg oral 2-02 TABLET BY l tablet 20:38: MOUTH [place] 00 THREE TIMES A DAY NIFEdipine Yes TAKE 1 Mem[facility] ia (Eqv-Adalat 2-02 TABLET BY l CC) 30 mg 20:38: MOUTH [place] oral 00 EVERY DAY tablet, ON EMPTY [...] 2-02 TABLET BY l tablet 20:38: MOUTH [place] 00 EVERY DAY FOR 90 DAYS doxycycline Yes TAKE 1 Jose Francisco zhang hyclate 100 2-02 CAPSULE BY l MG Oral 20:38: MOUTH [place] Capsule 00 TWICE A DAY Colestipol Yes TAKE 1 Mem[facility] ia Hydrochlori 2-02 TABLET BY l de 1000 MG 20:38: MOUTH Ajay n Oral Tablet 00 TWICE A DAY pantoprazol Yes TAKE 1 Jose Francisco zhang e 40 mg 2-02 TABLET BY l oral 20:38: MOUTH 2 [place] enteric 00 TIMES coated DAILY HALF tablet [...] 2-02 TABLET BY l Tablet 20:38: MOUTH [place] 00 EVERY DAY NEEDED FOR SWELLING tramadol [...] 2-02 TABLET BY l Tablet 20:38: MOUTH [place] 00 EVERY DAY NEEDED FOR SWELLING tramadol Yes TAKE 1 Mem[facility] hydrochlori 2-02 TABLET BY l de 50 MG 20:38: MOUTH [place] Oral Tablet 00 EVERY 6 TO 8 [...] CAPSULE BY l MG Oral 20:38: MOUTH [place] Capsule 00 TWICE A DAY Colestipol Yes TAKE 1 Mem[facility] ia Hydrochlori 2-02 TABLET BY l de 1000 MG 20:38: MOUTH Ajay n Oral Tablet 00 TWICE A DAY pantoprazol Yes TAKE 1 Jose Francisco zhang e 40 mg 2-02 TABLET BY l oral 20:38: MOUTH 2 [place] enteric 00 TIMES coated DAILY HALF tablet HOUR BEFORE BREAKFAST OR FIRST MEAL oxybutynin Yes TAKE 1 Mem[facility] 5 mg oral 2-02 TABLET BY l tablet 20:38: MOUTH [place] 00 THREE TIMES A DAY pantoprazol Yes TAKE 1 Jose Francisco zhang e 40 mg 2-02 TABLET BY l oral 20:38: MOUTH 2 [place] enteric 00 TIMES coated DAILY HALF tablet HOUR BEFORE BREAKFAST OR FIRST MEAL oxybutynin Yes TAKE 1 Mem[facility] ia 5 mg oral 2-02 TABLET BY l tablet 20:38: MOUTH [place] 00 THREE TIMES A DAY NIFEdipine Yes TAKE 1 [facility] ia (Eqv-Adalat 2-02 TABLET BY l CC) 30 mg 20:38: MOUTH [place] oral 00 EVERY DAY tablet, ON EMPTY extended STOMACH release FOR 30 DAYS Furosemide Yes TAKE 1 Mem[facility] ia 40 MG Oral 2-02 TABLET BY l Tablet 20:38: MOUTH [place] 00 EVERY DAY NEEDED FOR SWELLING tramadol [...] TABLET BY l oral 20:38: MOUTH 2 [place] enteric 00 TIMES coated DAILY HALF tablet HOUR BEFORE BREAKFAST OR FIRST MEAL oxybutynin Yes TAKE 1 Mem[facility] ia 5 mg oral 2-02 TABLET BY l tablet 20:38: MOUTH [place] 00 THREE TIMES A DAY NIFEdipine Yes TAKE 1 [facility] ia (Eqv-Adalat 2-02 TABLET BY l CC) 30 mg 20:38: MOUTH [place] oral 00 EVERY DAY tablet, ON EMPTY extended STOMACH release FOR 30 DAYS Furosemide Yes TAKE 1 Mem[facility] ia 40 MG Oral 2-02 TABLET BY l Tablet 20:38: MOUTH [place] 00 EVERY DAY NEEDED FOR SWELLING tramadol Yes TAKE 1 [facility] hydrochlori 2-02 TABLET BY l de 50 MG 20:38: MOUTH [place] Oral Tablet 00 EVERY 6 TO 8 [...] TABLET BY l oral 20:38: MOUTH 2 [place] enteric 00 TIMES coated DAILY HALF tablet HOUR BEFORE BREAKFAST OR FIRST MEAL oxybutynin Yes TAKE 1 Mem[facility] ia 5 mg oral 2-02 TABLET BY l tablet 20:38: MOUTH [place] 00 THREE TIMES A DAY NIFEdipine Yes TAKE 1 [facility] (Eqv-Adalat 2-02 TABLET BY l CC) 30 mg 20:38: MOUTH Raul oral 00 EVERY DAY tablet, ON EMPTY extended STOMACH release FOR 30 DAYS Furosemide Yes TAKE 1 [facility] 40 MG Oral 2-02 TABLET BY l Tablet 20:38: MOUTH [place] 00 EVERY DAY NEEDED FOR SWELLING tramadol Yes TAKE 1 [facility] hydrochlori 2-02 TABLET BY l de 50 MG 20:38: MOUTH [place] Oral Tablet 00 EVERY 6 TO 8 HOURS NEEDED predniSONE Yes TAKE 1 [facility] 10 mg oral 2-02 TABLET BY l tablet 20:38: MOUTH [place] 00 EVERY DAY FOR 90 DAYS doxycycline Yes TAKE 1 Jose Francisco zhang hyclate 100 2-02 CAPSULE BY l MG Oral 20:38: MOUTH [place] Capsule 00 TWICE A DAY Colestipol Yes [...] 2-02 TABLET BY l tablet 20:38: MOUTH [place] 00 THREE TIMES A DAY NIFEdipine Yes [...] BY l de 50 MG 20:38: MOUTH [place] Oral Tablet 00 EVERY 6 TO 8 HOURS NEEDED predniSONE Yes TAKE 1 [facility] 10 mg oral 2-02 TABLET BY l tablet 20:38: MOUTH [place] 00 EVERY DAY FOR 90 DAYS doxycycline Yes TAKE 1 Jose Francisco zhang hyclate 100 2-02 CAPSULE BY l MG Oral 20:38: MOUTH [place] Capsule 00 TWICE A DAY Colestipol Yes [...] BY l de 50 MG 20:38: MOUTH [place] Oral Tablet 00 EVERY 6 TO 8 HOURS NEEDED predniSONE Yes TAKE 1 [facility] 10 mg oral 2-02 TABLET BY l tablet 20:38: MOUTH [place] 00 EVERY DAY FOR 90 DAYS doxycycline Yes TAKE 1 Jose Francisco zhang hyclate 100 2-02 CAPSULE BY l MG Oral 20:38: MOUTH [place] Capsule 00 TWICE A DAY Colestipol Yes [...] BY l de 50 MG 20:38: MOUTH [place] Oral Tablet 00 EVERY 6 TO 8 HOURS NEEDED predniSONE Yes TAKE 1 [facility] 10 mg oral 2-02 TABLET BY l tablet 20:38: MOUTH [place] 00 EVERY DAY FOR 90 DAYS doxycycline Yes TAKE 1 Jose Francisco zhang hyclate 100 2-02 CAPSULE BY l MG Oral 20:38: MOUTH [place] Capsule 00 TWICE A DAY Colestipol Yes [...] 2-02 TABLET BY l Tablet 20:38: MOUTH [place] 00 EVERY DAY NEEDED FOR SWELLING tramadol [...] CAPSULE BY l MG Oral 20:38: MOUTH [place] Capsule 00 TWICE A DAY Colestipol Yes TAKE 1 [facility] Hydrochlori 2-02 TABLET BY l de 1000 MG 20:38: MOUTH Ajay n Oral Tablet 00 TWICE A DAY pantoprazol Yes TAKE 1 [facility] zhang e 40 mg 2-02 TABLET BY l oral 20:38: MOUTH 2 [place] [facility] 00 TIMES coated DAILY HALF tablet HOUR BEFORE BREAKFAST OR FIRST MEAL oxybutynin Yes TAKE 1 [facility] 5 mg oral 2-02 TABLET BY l tablet 20:38: MOUTH [place] 00 THREE TIMES A DAY NIFEdipine Yes [...] 2-02 TABLET BY l tablet 20:38: MOUTH [place] 00 EVERY DAY FOR 90 DAYS doxycycline 2022-0 Yes TAKE 1 Jose Francisco zhang hyclate 100 2-02 CAPSULE BY l MG Oral 20:38: MOUTH [place] Capsule 00 TWICE A DAY Colestipol Yes [...] 2-02 TABLET BY l tablet 20:38: MOUTH [place] 00 THREE TIMES A DAY donepezil Yes = 1 tab, Jose Francisco zhang 10 mg oral 3-26 PO, Daily, l tablet 19:08: # 90 tab, Ajay n 00 1 Refill(s), [facility]: [facility] [id number], 149.86, cm, 12/24/20 13:59:00 CDT, Height, 93.182, kg, 12/24/20 13:59:00 CDT, Weight primidone Yes 50 mg = 1 Mem oria 50 mg oral 3-26 tab, PO, l tablet 19:08: Bedtime, # Jessie nn 00 90 tab, 2 Refill(s), [facility]acy: [facility] #[id number], 149.86, cm, 12/24/20 13:59:00 CDT, Height, 93.182, kg, 12/24/20 13:59:00 CDT, Weight donepezil Yes = 1 tab, Jose Francisco zhang 10 mg oral 3-26 PO, Daily, l tablet 19:08: # 90 tab, Ajay n 00 1 Refill(s), Pharmacy: [facility] #[id number], 149.86, cm, 12/24/20 13:59:00 CDT, Height, 93.182, kg, 12/24/20 13:59:00 CDT, Weight primidone 0 Yes 50 mg = 1 Mem oria 50 mg oral 3-26 tab, PO, l tablet 19:08: Bedtime, # Jessie nn 00 90 tab, 2 Refill(s), Pharmacy: [facility] #[id number], 149.86, cm, 12/24/20 13:59:00 CDT, Height, 93.182, kg, 12/24/20 13:59:00 CDT, Weight donepezil 2020-0 Yes = 1 tab, Jose Francisco zhang 10 mg oral 3-26 PO, Daily, l tablet 19:08: # 90 tab, Ajay n 00 1 Refill(s), Pharmacy: [facility] #[id number], 149.86, cm, 12/24/20 13:59:00 CDT, Height, 93.182, kg, 12/24/20 13:59:00 CDT, Weight primidone 1-0 Yes 50 mg = 1 Mem oria 50 mg oral 3-26 tab, PO, l tablet 19:08: Bedtime, # Jessie nn 00 90 tab, 2 Refill(s), [facility]acy: [facility] #[id number], 149.86, cm, 12/24/20 13:59:00 CDT, Height, 93.182, kg, 12/24/20 13:59:00 CDT, Weight donepezil 2020-0 Yes = 1 tab, Jose Francisco zhang 10 mg oral 3-26 PO, Daily, l tablet 19:08: # 90 tab, Ajay n 00 1 Refill(s), Pharmacy: [facility] #[id number], 149.86, cm, 12/24/20 13:59:00 CDT, Height, 93.182, kg, 12/24/20 13:59:00 CDT, Weight primidone 1-0 Yes 50 mg = 1 Mem oria 50 mg oral 3-26 tab, PO, l tablet 19:08: Bedtime, # Jessie nn 00 90 tab, 2 Refill(s), [facility]acy: [facility] #[id number], 149.86, cm, 12/24/20 13:59:00 CDT, Height, 93.182, kg, 12/24/20 13:59:00 CDT, Weight donepezil 2020-0 Yes = 1 tab, Jose Francisco zhang 10 mg oral 3-26 PO, Daily, l tablet 19:08: # 90 tab, Ajay n 00 1 Refill(s), [facility]acy: [facility] #[id number], 149.86, cm, 12/24/20 13:59:00 CDT, Height, 93.182, kg, 12/24/20 13:59:00 CDT, Weight primidone 2021-0 Yes 50 mg = 1 Mem oria 50 mg oral 3-26 tab, PO, l tablet 19:08: Bedtime, # Jessie nn 00 90 tab, 2 Refill(s), Pharmacy: [facility] #[id number], 149.86, cm, 12/24/20 13:59:00 CDT, Height, 93.182, kg, 12/24/20 13:59:00 CDT, Weight donepezil 2021-0 Yes = 1 tab, Jose Francisco zhang 10 mg oral 3-26 PO, Daily, l tablet 19:08: # 90 tab, Ajay n 00 1 Refill(s), Pharmacy: [facility] #[id number], 149.86, cm, 12/24/20 13:59:00 CDT, Height, 93.182, kg, 12/24/20 13:59:00 CDT, Weight primidone 1-0 Yes 50 mg = 1 Mem oria 50 mg oral 3-26 tab, PO, l tablet 19:08: Bedtime, # Jessie nn 00 90 tab, 2 Refill(s), Pharmacy: [facility] #[id number], 149.86, cm, 12/24/20 13:59:00 CDT, Height, 93.182, kg, 12/24/20 13:59:00 CDT, Weight donepezil 1-0 Yes = 1 tab, Jose Francisco zhang 10 mg oral 3-26 PO, Daily, l tablet 19:08: # 90 tab, Ajay n 00 1 Refill(s), Pharmacy: [facility] #[id number], 149.86, cm, 12/24/20 13:59:00 CDT, Height, 93.182, kg, 12/24/20 13:59:00 CDT, Weight primidone 2021-0 Yes 50 mg = 1 Mem oria 50 mg oral 3-26 tab, PO, l tablet 19:08: Bedtime, # Jessie nn 00 90 tab, 2 Refill(s), Pharmacy: [facility] #[id number], 149.86, cm, 12/24/20 13:59:00 CDT, Height, 93.182, kg, 12/24/20 13:59:00 CDT, Weight donepezil 2021-0 Yes = 1 tab, Jose Francisco zhang 10 mg oral 3-26 PO, Daily, l tablet 19:08: # 90 tab, Ajay n 00 1 Refill(s), Pharmacy: [facility] #[id number], 149.86, cm, 12/24/20 13:59:00 CDT, Height, 93.182, kg, 12/24/20 13:59:00 CDT, Weight primidone 2021-0 Yes 50 mg = 1 Mem oria 50 mg oral 3-26 tab, PO, l tablet 19:08: Bedtime, # Jessie nn 00 90 tab, 2 Refill(s), Pharmacy: [facility] #[id number], 149.86, cm, 12/24/20 13:59:00 CDT, Height, 93.182, kg, 12/24/20 13:59:00 CDT, Weight donepezil 2020-0 Yes = 1 tab, Jose Francisco zhang 10 mg oral 3-26 PO, Daily, l tablet 19:08: # 90 tab, Ajay n 00 1 Refill(s), [facility]acy: [facility] #[id number], 149.86, cm, 12/24/20 13:59:00 CDT, Height, 93.182, kg, 12/24/20 13:59:00 CDT, Weight primidone 2021-0 Yes 50 mg = 1 Mem oria 50 mg oral 3-26 tab, PO, l tablet 19:08: Bedtime, # Jessie nn 00 90 tab, 2 Refill(s), [facility]acy: [facility] #[id number], 149.86, cm, 12/24/20 13:59:00 CDT, Height, 93.182, kg, 12/24/20 13:59:00 CDT, Weight donepezil 2021-0 Yes = 1 tab, Jose Francisco zhang 10 mg oral 3-26 PO, Daily, l tablet 19:08: # 90 tab, Ajay n 00 1 Refill(s), [facility]acy: [facility] #[id number], 149.86, cm, 12/24/20 13:59:00 CDT, Height, 93.182, kg, 12/24/20 13:59:00 CDT, Weight primidone 2020-0 Yes 50 mg = 1 Mem oria 50 mg oral 3-26 tab, PO, l tablet 19:08: Bedtime, # Jessie nn 00 90 tab, 2 Refill(s), Pharmacy: [facility] #[id number], 149.86, cm, 12/24/20 13:59:00 CDT, Height, 93.182, kg, 12/24/20 13:59:00 CDT, Weight donepezil 2020-0 Yes = 1 tab, Jose Francisco zhang 10 mg oral 3-26 PO, Daily, l tablet 19:08: # 90 tab, Ajay n 00 1 Refill(s), Pharmacy: [facility] #[id number], 149.86, cm, 12/24/20 13:59:00 CDT, Height, 93.182, kg, 12/24/20 13:59:00 CDT, Weight primidone 2020-0 Yes 50 mg = 1 Mem oria 50 mg oral 3-26 tab, PO, l tablet 19:08: Bedtime, # Jessie nn 00 90 tab, 2 Refill(s), Pharmacy: [facility] #[id number], 149.86, cm, 12/24/20 13:59:00 CDT, Height, 93.182, kg, 12/24/20 13:59:00 CDT, Weight donepezil 2020-0 Yes = 1 tab, Jose Francisco zhang 10 mg oral 3-26 PO, Daily, l tablet 19:08: # 90 tab, Ajay n 00 1 Refill(s), Pharmacy: [facility] #[id number], 149.86, cm, 12/24/20 13:59:00 CDT, Height, 93.182, kg, 12/24/20 13:59:00 CDT, Weight primidone 1-0 Yes 50 mg = 1 Mem oria 50 mg oral 3-26 tab, PO, l tablet 19:08: Bedtime, # Jessie nn 00 90 tab, 2 Refill(s), Pharmacy: [facility] #[id number], 149.86, cm, 12/24/20 13:59:00 CDT, Height, 93.182, kg, 12/24/20 13:59:00 CDT, Weight donepezil 2021-0 Yes = 1 tab, Jose Francisco zhang 10 mg oral 3-26 PO, Daily, l tablet 19:08: # 90 tab, Ajay n 00 1 Refill(s), Pharmacy: [facility] #[id number], 149.86, cm, 12/24/20 13:59:00 CDT, Height, 93.182, kg, 12/24/20 13:59:00 CDT, Weight primidone 2021-0 Yes 50 mg = 1 Mem oria 50 mg oral 3-26 tab, PO, l tablet 19:08: Bedtime, # Jessie nn 00 90 tab, 2 Refill(s), Pharmacy: [facility] #[id number], 149.86, cm, 12/24/20 13:59:00 CDT, Height, 93.182, kg, 12/24/20 13:59:00 CDT, Weight donepezil 2020-0 Yes = 1 tab, Jose Francisco zhang 10 mg oral 3-26 PO, Daily, l tablet 19:08: # 90 tab, Ajay n 00 1 Refill(s), [facility]: [facility] #[id number], 149.86, cm, 12/24/20 13:59:00 CDT, Height, 93.182, kg, 12/24/20 13:59:00 CDT, Weight primidone 1-0 Yes 50 mg = 1 Mem oria 50 mg oral 3-26 tab, PO, l tablet 19:08: Bedtime, # Jessie nn 00 90 tab, 2 Refill(s), [facility]acy: [facility] #[id number], 149.86, cm, 12/24/20 13:59:00 CDT, Height, 93.182, kg, 12/24/20 13:59:00 CDT, Weight donepezil 2021-0 Yes = 1 tab, Jose Francisco zhang 10 mg oral 3-26 PO, Daily, l tablet 19:08: # 90 tab, Ajay n 00 1 Refill(s), Pharmacy: [facility] #[id number], 149.86, cm, 12/24/20 13:59:00 CDT, Height, 93.182, kg, 12/24/20 13:59:00 CDT, Weight primidone 1-0 Yes 50 mg = 1 Mem oria 50 mg oral 3-26 tab, PO, l tablet 19:08: Bedtime, # Jessie nn 00 90 tab, 2 Refill(s), Pharmacy: [facility] #[id number], 149.86, cm, 12/24/20 13:59:00 CDT, Height, 93.182, kg, 12/24/20 13:59:00 CDT, Weight donepezil 2020-0 Yes = 1 tab, Jose Francisco zhang 10 mg oral 3-26 PO, Daily, l tablet 19:08: # 90 tab, Ajay n 00 1 Refill(s), Pharmacy: [facility] #[id number], 149.86, cm, 12/24/20 13:59:00 CDT, Height, 93.182, kg, 12/24/20 13:59:00 CDT, Weight primidone 1-0 Yes 50 mg = 1 Mem oria 50 mg oral 3-26 tab, PO, l tablet 19:08: Bedtime, # Jessie nn 00 90 tab, 2 Refill(s), Pharmacy: [facility] #[id number], 149.86, cm, 12/24/20 13:59:00 CDT, Height, 93.182, kg, 12/24/20 13:59:00 CDT, Weight donepezil 2020-0 Yes = 1 tab, Jose Francisco zhang 10 mg oral 3-26 PO, Daily, l tablet 19:08: # 90 tab, Ajay n 00 1 Refill(s), Pharmacy: [facility] #[id number], 149.86, cm, 12/24/20 13:59:00 CDT, Height, 93.182, kg, 12/24/20 13:59:00 CDT, Weight primidone 1-0 Yes 50 mg = 1 Mem oria 50 mg oral 3-26 tab, PO, l tablet 19:08: Bedtime, # Jessie nn 00 90 tab, 2 Refill(s), Pharmacy: [facility] #[id number], 149.86, cm, 12/24/20 13:59:00 CDT, Height, 93.182, kg, 12/24/20 13:59:00 CDT, Weight donepezil 2021-0 Yes = 1 tab, Jose Francisco zhang 10 mg oral 3-26 PO, Daily, l tablet 19:08: # 90 tab, Ajay n 00 1 Refill(s), Pharmacy: [facility] #[id number], 149.86, cm, 12/24/20 13:59:00 CDT, Height, 93.182, kg, 12/24/20 13:59:00 CDT, Weight primidone 2020-0 Yes 50 mg = 1 Mem oria 50 mg oral 3-26 tab, PO, l tablet 19:08: Bedtime, # Jessie nn 00 90 tab, 2 Refill(s), Pharmacy: [facility] #[id number], 149.86, cm, 12/24/20 13:59:00 CDT, Height, 93.182, kg, 12/24/20 13:59:00 CDT, Weight Lidocaine Lidocaine 2020-0 No 10mg Com 12-09 [facility]: - [facility] 00 [facility] Celestone Celestone 2020-0 No 6mg Com mon Soluspan Soluspan 3-11 [facility] (Betamethas (Betamethas 00:00: - [facility] one) one) 00 [facility] Lidocaine Lidocaine 2020-0 No 10mg Com 12-09 [facility] 00:[facility]: - [facility] 00 [facility] Celestone Celestone 2020-0 No 6mg Com mon Soluspan Soluspan 3-11 [facility] (Betamethas (Betamethas 00:00: - [facility] one) one) 00 [facility] Lidocaine Lidocaine 2020-0 No 10mg Com 12-09 [facility] 00:[facility]: - [facility] 00 [facility] Celestone Celestone 2020-0 No 6mg Com mon Soluspan Soluspan 3-11 [facility] (Betamethas (Betamethas 00:00: - [facility] one) one) 00 [facility] Lidocaine Lidocaine 2020-0 No 10mg Com sun 3- [facility] 00:[facility]: - [facility] 00 [facility] Celestone Celestone 2020-0 No 6mg Com mon Soluspan Soluspan 3-11 [facility] (Betamethas (Betamethas 00:00: - [facility] one) one) 00 [facility] Lidocaine Lidocaine 2020-0 No 10mg Com 12-09 [facility] 00:[facility]: - [facility] 00 [facility] Celestone Celestone 2020-0 No 6mg Com mon Soluspan Soluspan 3-11 [facility] (Betamethas (Betamethas 00:00: - [facility] one) one) 00 [facility] Lidocaine Lidocaine 2020-0 No 10mg Com 12-09 [facility] 00:[facility]: - [facility] 00 [facility] Celestone Celestone 2020-0 No 6mg Com mon Soluspan Soluspan 3-11 [facility] (Betamethas (Betamethas 00:00: - [facility] one) one) 00 [facility] Lidocaine Lidocaine 2020-0 No 10mg Com 12-09 [facility] 00:[facility]: - [facility] 00 [facility] Celestone Celestone 2020-0 No 6mg Com mon Soluspan Soluspan 3-11 [facility] (Betamethas (Betamethas 00:00: - [facility] one) one) 00 [facility] Lidocaine Lidocaine 2020-0 No 10mg Com 12-09 [facility] 00:[facility]: - [facility] 00 [facility] Celestone Celestone 2020-0 No 6mg Com mon Soluspan Soluspan 3-11 [facility] (Betamethas (Betamethas 00:00: - [facility] one) one) 00 [facility] Lidocaine Lidocaine 2020-0 No 10mg Com 12-09 [facility] 00:[facility]: - [facility] 00 [facility] Celestone Celestone 2020-0 No 6mg Com mon Soluspan Soluspan 3-11 [facility] (Betamethas (Betamethas 00:00: - [facility] one) one) 00 [facility] Lidocaine Lidocaine 2020-0 No 10mg Com 12-09 [facility] 00:[facility]: - [facility] 00 [facility] Celestone Celestone 2020-0 No 6mg Com mon Soluspan Soluspan 3-11 [facility] (Betamethas (Betamethas 00:00: - [facility] one) one) 00 [facility] Lovastatin 2020-1 No 20 mg, 1 Mem oria 2-07 tab, l 03:00: Route: PO, [place] 00 Drug form: TAB, Bedtime, Dosing Weight 104.545, kg, 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, Duration: 30 day, Stop date: 10/04/20 21:00:00 RECYCLE DRIVER Primidone 2019-10 No Notes: Memori a 2-07 (Same as: l 03:00: Mysoline) Lipitor 2019-10 No Notes: Memoria 2-07 (Same As: l 03:00: Lipitor) Lovastatin 2019-10 No 20 mg, 1 Mem oria 2-07 tab, l 03:00: Route: PO, [place] 00 Drug form: TAB, Bedtime, Dosing Weight 104.545, kg, 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, Duration: 30 day, Stop date: 10/04/20 21:00:00 RECYCLE DRIVER Primidone 2019-10 No Notes: Memori a 2-07 (Same as: l 03:00: Mysoline) Lipitor 2019-10 No Notes: Memoria 2-07 (Same As: l 03:00: Lipitor) Lovastatin 2019-10 No 20 mg, 1 Mem oria 2-07 tab, l 03:00: Route: PO, [place] 00 Drug form: TAB, Bedtime, Dosing Weight 104.545, kg, 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, Duration: 30 day, Stop date: 10/04/20 21:00:00 RECYCLE DRIVER Primidone 2019-10 No Notes: Memori a 2-07 (Same as: l 03:00: Mysoline) Lipitor 2019-10 No Notes: Memoria 2-07 (Same As: l 03:00: Lipitor) Lovastatin 2019-10 No 20 mg, 1 Mem oria 2-07 tab, l 03:00: Route: PO, Drug form: TAB, Bedtime, Dosing Weight 104.545, kg, 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, Duration: 30 day, Stop date: 10/04/20 21:00:00 RECYCLE DRIVER Primidone 2019-10 No Notes: Memori a 2-07 (Same as: l 03:00: Mysoline) Lipitor 2019-10 No Notes: Memoria 2-07 (Same As: l 03:00: Lipitor) Lovastatin 2019-10 No 20 mg, 1 Mem oria 2-07 tab, l 03:00: Route: PO, Raul 00 Drug form: TAB, Bedtime, Dosing Weight 104.545, kg, 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, Duration: 30 day, Stop date: 10/04/20 21:00:00 RECYCLE DRIVER Primidone 2019-10 No Notes: Memori a 2-07 (Same as: l 03:00: Mysoline) Lipitor 2019-10 No Notes: Memoria 2-07 (Same As: l 03:00: Lipitor) Lovastatin 2019-10 No 20 mg, 1 Mem oria 2-07 tab, l 03:00: Route: PO, Raul 00 Drug form: TAB, Bedtime, Dosing Weight 104.545, kg, 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, Duration: 30 day, Stop date: 10/04/20 21:00:00 RECYCLE DRIVER Primidone 2019-10 No Notes: Memori a 2-07 (Same as: l 03:00: Mysoline) Lipitor 2019-10 No Notes: Memoria 2-07 (Same As: l 03:00: Lipitor) Lovastatin 2019-10 No 20 mg, 1 Mem oria 2-07 tab, l 03:00: Route: PO, Drug form: TAB, Bedtime, Dosing Weight 104.545, kg, 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, Duration: 30 day, Stop date: 10/04/20 21:00:00 RECYCLE DRIVER Primidone 2019-10 No Notes: Memori a 2-07 (Same as: l 03:00: Mysoline) Lipitor 2019-10 No Notes: Memoria 2-07 (Same As: l 03:00: Lipitor) Lovastatin 2019-10 No 20 mg, 1 Mem oria 2-07 tab, l 03:00: Route: PO, Drug form: TAB, Bedtime, Dosing Weight 104.545, kg, 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, Duration: 30 day, Stop date: 10/04/20 21:00:00 RECYCLE DRIVER Primidone 2019-10 No Notes: Memori a 2-07 (Same as: l 03:00: Mysoline) Lipitor 2019-10 No Notes: Memoria 2-07 (Same As: l 03:00: Lipitor) Lovastatin 2019- No 20 mg, 1 Mem oria 2-07 tab, l 03:00: Route: PO, Raul 00 Drug form: TAB, Bedtime, Dosing Weight 104.545, kg, 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, Duration: 30 day, Stop date: 10/04/20 21:00:00 RECYCLE DRIVER Primidone 2019-10 No Notes: Memori a 2-07 (Same as: l 03:00: Mysoline) Lipitor 2019-10 No Notes: [facility]oria 2-07 (Same As: l 03:00: Lipitor) Lovastatin 2019- No 20 mg, 1 Mem oria 2-07 tab, l 03:00: Route: PO, [place] 00 Drug form: TAB, Bedtime, Dosing Weight 104.545, kg, 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, Duration: 30 day, Stop date: 10/04/20 21:00:00 RECYCLE DRIVER Primidone 2019-10 No Notes: Memori a 2-07 (Same as: l 03:00: Mysoline) Lovastatin 2019-10 No 20 mg, 1 Mem oria 2-07 tab, l 03:00: Route: PO, [place] 00 Drug form: TAB, Bedtime, Dosing Weight 104.545, kg, 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, Duration: 30 day, Stop date: 10/04/20 21:00:00 RECYCLE DRIVER Lovastatin 2019-10 No 20 mg, 1 Mem [facility]ria 2-07 tab, l 03:00: Route: PO, [place] 00 Drug form: TAB, Bedtime, Dosing Weight 104.545, kg, 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, Duration: 30 day, Stop date: 10/04/20 21:00:00 RECYCLE DRIVER Primidone 2019-10 No Notes: Memori a 2-07 [...] Weight 104.545, kg, 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, Duration: 30 day, Stop date: 10/04/20 21:00:00 RECYCLE DRIVER Primidone 2019-10 No Notes: Memori a 2-07 (Same as: l 03:00: Mysoline) Lipitor 2019-10 No Notes: Memoria 2-07 (Same As: l 03:00: Lipitor) Lovastatin 2019-10 No 20 mg, 1 Mem oria 2-07 tab, l 03:00: Route: PO, [place] 00 Drug form: TAB, Bedtime, Dosing Weight 104.545, kg, 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, Duration: 30 day, Stop date: 10/04/20 21:00:00 RECYCLE DRIVER Primidone 2019-10 No Notes: Memori a 2-07 (Same as: l 03:00: Mysoline) Lipitor 2019-10 No Notes: [facility]oria 2-07 (Same As: l 03:00: Lipitor) Lovastatin 2019-10 No 20 mg, 1 Mem [facility]ria 2-07 tab, l 03:00: Route: PO, [place] 00 Drug form: TAB, Bedtime, Dosing Weight 104.545, kg, 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, Duration: 30 day, Stop date: 10/04/20 21:00:00 RECYCLE DRIVER Primidone 2019-10 No Notes: Memori a 2-07 (Same as: l 03:00: Mysoline) Lipitor 2019-10 No Notes: [facility]oria 2-07 (Same As: l 03:00: Lipitor) Lovastatin 2019-10 No 20 mg, 1 Mem [facility]ria 2-07 tab, l 03:00: Route: PO, [place] 00 Drug form: TAB, Bedtime, Dosing Weight 104.545, kg, 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, Duration: 30 day, Stop date: 10/04/20 21:00:00 RECYCLE DRIVER Primidone 2019-10 No Notes: Mem[facility] a 2-07 (Same as: l 03:00: Mysoline) Lipitor 2019-10 No Notes: [facility]oria 2-07 (Same As: l 03:00: Lipitor) Lovastatin 2019-10 No 20 mg, 1 Mem [facility]ria 2-07 tab, l 03:00: Route: PO, [place] 00 Drug form: TAB, Bedtime, Dosing Weight 104.545, kg, 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, Duration: 30 day, Stop date: 10/04/20 21:00:00 RECYCLE DRIVER Primidone 2019-10 No Notes: Memori a 2-07 (Same as: l 03:00: Mysoline) Lipitor 2019-10 No Notes: [facility] 2-07 (Same As: l 03:00: Lipitor) Lovastatin 2019-10 No 20 mg, 1 Mem [facility]ria 2-07 tab, l 03:00: Route: PO, Drug form: TAB, Bedtime, Dosing Weight 104.545, kg, 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, Duration: 30 day, Stop date: 10/04/20 21:00:00 RECYCLE DRIVER Primidone 2019-10 No Notes: Memori a 2-07 [...] Respules 2-06 (Same As: l 16:00: Pulmicort) [place] 00 Pulmicort 2019-10 No Notes: Memori a Respules 2-06 (Same As: l 16:00: Pulmicort) [place] 00 Pulmicort 2019-10 No Notes: Memori a Respules 2-06 (Same As: l 16:00: Pulmicort) Pulmicort 2019-10 No Notes: Memori a Respules 2-06 (Same As: l 16:00: Pulmicort) [place] 00 Pulmicort 2019-10 No Notes: Memori a Respules 2-06 (Same As: l 16:00: Pulmicort) [place] 00 Pulmicort 2019-10 No Notes: Memori a [...] Respules 2-06 (Same As: l 16:00: Pulmicort) [place] 00 Pulmicort 2019-10 No Notes: Memori a Respules 2-06 (Same As: l 16:00: Pulmicort) Bupropion 2019-10 No Notes: Memori a 2-06 (Same as: l 15:00: Wellbutrin [place] 00 XL) "Do Not Crush" carvedilol 2019-10 No Notes: Memor ia 2-06 Give with l 15:00: food. [place] 00 (Same As: Coreg) donepezil 2019-10 No [...] 104.545, kg, Daily, Start date: 09/05/20 9:00:00 RECYCLE DRIVER, Duration: 30 day, Stop date: 10/04/20 9:00:00 RECYCLE DRIVER gabapentin 2019-10 No Notes: Memor ia 300 [...] 104.545, kg, Daily, Start date: 09/05/20 9:00:00 RECYCLE DRIVER, Duration: 30 day, Stop date: 10/04/20 9:00:00 RECYCLE DRIVER gabapentin 2019-10 No Notes: Memor ia 300 [...] inhalation l 62.5 mcg-25 15:00: , [facility] , Drug powder Form: PWDR, Dosing Weight 104.545, kg, Daily, Start date: 09/05/20 9:00:00 RECYCLE DRIVER, Duration: 30 day, Stop date: 10/04/20 9:00:00 RECYCLE DRIVER gabapentin 2019-10 No Notes: Memor ia 300 [...] 104.545, kg, Daily, Start date: 09/05/20 9:00:00 RECYCLE DRIVER, Duration: 30 day, Stop date: 10/04/20 9:00:00 RECYCLE DRIVER gabapentin 2019-10 No Notes: Memor ia 300 [...] 104.545, kg, Daily, Start date: 09/05/20 9:00:00 RECYCLE DRIVER, Duration: 30 day, Stop date: 10/04/20 9:00:00 RECYCLE DRIVER gabapentin 2019-10 No Notes: Memor ia 300 MG Oral 2-06 (Same as: l Capsule 15:00: Neurontin) ropinirole 2019-10 No Notes: Memor ia 2-06 (Same as: l 15:00: Requip) Bupropion 2019-10 No Notes: Memori a 2-06 (Same as: l 15:00: Wellbutrin [place] 00 XL) "Do Not Crush" carvedilol 2019-10 [...] 104.545, kg, Daily, Start date: 09/05/20 9:00:00 RECYCLE DRIVER, Duration: 30 day, Stop date: 10/04/20 9:00:00 RECYCLE DRIVER gabapentin 2019-10 No Notes: Memor ia 300 [...] 104.545, kg, Daily, Start date: 09/05/20 9:00:00 RECYCLE DRIVER, Duration: 30 day, Stop date: 10/04/20 9:00:00 RECYCLE DRIVER gabapentin 2019-10 No Notes: Mem[facility] ia 300 [...] 104.545, kg, Daily, Start date: 09/05/20 9:00:00 RECYCLE DRIVER, Duration: 30 day, Stop date: 10/04/20 9:00:00 RECYCLE DRIVER gabapentin 2019-10 No Notes: [facility] ia 300 [...] 104.545, kg, Daily, Start date: 09/05/20 9:00:00 RECYCLE DRIVER, Duration: 30 day, Stop date: 10/04/20 9:00:00 RECYCLE DRIVER gabapentin 2019-10 No Notes: Memor ia 300 MG Oral 2-06 (Same as: l Capsule 15:00: Neurontin) ropinirole 2019-10 No Notes: Memor ia 2-06 (Same as: l 15:00: Requip) Bupropion 2019-10 No Notes: Memori a 2-06 (Same as: l 15:00: Wellbutrin [place] 00 XL) "Do Not Crush" carvedilol 2019-10 [...] 104.545, kg, Daily, Start date: 09/05/20 9:00:00 RECYCLE DRIVER, Duration: 30 day, Stop date: 10/04/20 9:00:00 RECYCLE DRIVER gabapentin 2019-10 No Notes: [facility] ia 300 [...] 104.545, kg, Daily, Start date: 09/05/20 9:00:00 RECYCLE DRIVER, Duration: 30 day, Stop date: 10/04/20 9:00:00 RECYCLE DRIVER gabapentin 2019-10 No Notes: [facility] 300 [...] l 62.5 mcg-25 15:00: , Route: He ann mcg 00 INHALATION inhalation , Drug powder Form: PWDR, Dosing Weight 104.545, kg, Daily, Start date: 09/05/20 9:00:00 RECYCLE DRIVER, Duration: 30 day, Stop date: 10/04/20 9:00:00 RECYCLE DRIVER gabapentin 2019-10 No Notes: [facility] 300 [...] 104.545, kg, Daily, Start date: 09/05/20 9:00:00 RECYCLE DRIVER, Duration: 30 day, Stop date: 10/04/20 9:00:00 RECYCLE DRIVER gabapentin 2019-10 No Notes: [facility] 300 [...] 104.545, kg, Daily, Start date: 09/05/20 9:00:00 RECYCLE DRIVER, Duration: 30 day, Stop date: 10/04/20 9:00:00 RECYCLE DRIVER gabapentin 2019-10 No Notes: [facility] 300 [...] 104.545, kg, Daily, Start date: 09/05/20 9:00:00 RECYCLE DRIVER, Duration: 30 day, Stop date: 10/04/20 9:00:00 RECYCLE DRIVER gabapentin 2019-10 No Notes: [facility] 300 [...] 104.545, kg, Daily, Start date: 09/05/20 9:00:00 RECYCLE DRIVER, Duration: 30 day, Stop date: 10/04/20 9:00:00 RECYCLE DRIVER gabapentin 2019-10 No Notes: [facility] 300 [...] 104.545, kg, Daily, Start date: 09/05/20 9:00:00 RECYCLE DRIVER, Duration: 30 day, Stop date: 10/04/20 9:00:00 RECYCLE DRIVER gabapentin 2019-10 No Notes: [facility] 300 [...] 104.545, kg, Daily, Start date: 09/05/20 9:00:00 RECYCLE DRIVER, Duration: 30 day, Stop date: 10/04/20 9:00:00 RECYCLE DRIVER gabapentin 2019-10 No Notes: [facility] 300 MG Oral 2-06 (Same as: l Capsule 15:00: Neurontin) ropinirole 2019-10 No Notes: [facility] 2-06 (Same as: l 15:00: Requip) Streptococc 2019-10 No Notes: Jose Francisco zhang us 2-06 Shake well l pneumoniae 14:12: prior to Her ivory serotype 1 45 use (Same capsular as: antigen Prevnar diphtheria 13) [id number] protein conjugate vaccine / Streptococc us pneumoniae serotype 14 capsular antigen diphtheria [id number] protein conjugate vaccine / Streptococc us pneumoniae serotype 18C capsular antigen d Streptococc 2019-10 No Notes: Jose Francisco zhang us 2-06 Shake well l pneumoniae 14:12: prior to Her ivory serotype 1 45 use (Same capsular as: antigen Prevnar diphtheria 13) [id number] protein conjugate vaccine / Streptococc us pneumoniae serotype 14 capsular antigen diphtheria [id number] protein conjugate vaccine / Streptococc us pneumoniae serotype 18C capsular antigen d Streptococc 2019-10 No Notes: Jose Francisco zhang us 2-06 Shake well l pneumoniae 14:12: prior to Her ivory serotype 1 45 use (Same capsular as: antigen Prevnar diphtheria 13) [id number] protein conjugate vaccine / Streptococc us pneumoniae serotype 14 capsular antigen diphtheria [id number] protein conjugate vaccine / Streptococc us pneumoniae serotype 18C capsular antigen d Streptococc 2019-10 No Notes: Jose Francisco zhang us 2-06 Shake well l pneumoniae 14:12: prior to Her ivory serotype 1 45 use (Same capsular as: antigen Prevnar diphtheria 13) [id number] protein conjugate vaccine / Streptococc us pneumoniae serotype 14 capsular antigen diphtheria [id number] protein conjugate vaccine / Streptococc us pneumoniae serotype 18C capsular antigen d Streptococc 2020- No Notes: Jose Francisco zhang us 2-06 Shake well l pneumoniae 14:12: prior to Her ivory serotype 1 45 use (Same capsular as: antigen Prevnar diphtheria 13) [id number] protein conjugate vaccine / Streptococc us pneumoniae serotype 14 capsular antigen diphtheria [id number] protein conjugate vaccine / Streptococc us pneumoniae serotype 18C capsular antigen d Streptococc 2020- No Notes: Jose Francisco zhang us 2-06 Shake well l pneumoniae 14:12: prior to Her ivory serotype 1 45 use (Same capsular as: antigen Prevnar diphtheria 13) [id number] protein conjugate vaccine / Streptococc us pneumoniae serotype 14 capsular antigen diphtheria [id number] protein conjugate vaccine / Streptococc us pneumoniae serotype 18C capsular antigen d Streptococc 2020- No Notes: Jose Francisco zhang us 2-06 Shake well l pneumoniae 14:12: prior to Her ivory serotype 1 45 use (Same capsular as: antigen Prevnar diphtheria 13) [id number] protein conjugate vaccine / Streptococc us pneumoniae serotype 14 capsular antigen diphtheria [id number] protein conjugate vaccine / Streptococc us pneumoniae serotype 18C capsular antigen d Streptococc 2020- No Notes: Jose Francisco zhang us 2-06 Shake well l pneumoniae 14:12: prior to Her ivory serotype 1 45 use (Same capsular as: antigen Prevnar diphtheria 13) [id number] protein conjugate vaccine / Streptococc us pneumoniae serotype 14 capsular antigen diphtheria [id number] protein conjugate vaccine / Streptococc us pneumoniae serotype 18C capsular antigen d Streptococc 2020- No Notes: Jose Francisco zhang us 2-06 Shake well l pneumoniae 14:12: prior to Her ivory serotype 1 45 use (Same capsular as: antigen Prevnar diphtheria 13) [id number] protein conjugate vaccine / Streptococc us pneumoniae serotype 14 capsular antigen diphtheria [id number] protein conjugate vaccine / Streptococc us pneumoniae serotype 18C capsular antigen d Streptococc 2020- No Notes: Jose Francisco zhang us 2-06 Shake well l pneumoniae 14:12: prior to Her ivory serotype 1 45 use (Same capsular as: antigen Prevnar diphtheria 13) [id number] protein conjugate vaccine / Streptococc us pneumoniae serotype 14 capsular antigen diphtheria [id number] protein conjugate vaccine / Streptococc us pneumoniae serotype 18C capsular antigen d Streptococc 2020-1 No Notes: Jose Francisco zhang us 2-06 Shake well l pneumoniae 14:12: prior to Her ivory serotype 1 45 use (Same capsular as: antigen Prevnar diphtheria 13) [id number] protein conjugate vaccine / Streptococc us pneumoniae serotype 14 capsular antigen diphtheria [id number] protein conjugate vaccine / Streptococc us pneumoniae serotype 18C capsular antigen d Streptococc 2020- No Notes: Jose Francisco zhang 2-06 Shake well l pneumoniae 14:12: prior to Her ivory serotype 1 45 use (Same capsular as: antigen Prevnar diphtheria 13) [id number] protein conjugate vaccine / Streptococc us pneumoniae serotype 14 capsular antigen diphtheria [id number] protein conjugate vaccine / Streptococc us pneumoniae serotype 18C capsular antigen d Streptococc 2020- No Notes: Jose Francisco zhang 2-06 Shake well l pneumoniae 14:12: prior to Her ivory serotype 1 45 use (Same capsular as: antigen Prevnar diphtheria 13) [id number] protein conjugate vaccine / Streptococc us pneumoniae serotype 14 capsular antigen diphtheria [id number] protein conjugate vaccine / Streptococc us pneumoniae serotype 18C capsular antigen d Streptococc 2019- No Notes: Jose Francisco zhang 2-06 Shake well l pneumoniae 14:12: prior to Her ivory serotype 1 45 use (Same capsular as: antigen Prevnar diphtheria 13) [id number] protein conjugate vaccine / Streptococc us pneumoniae serotype 14 capsular antigen diphtheria [id number] protein conjugate vaccine / Streptococc us pneumoniae serotype 18C capsular antigen d Streptococc 2019- No Notes: Jose Francisco zhang 2-06 Shake well l pneumoniae 14:12: prior to Her ivory serotype 1 45 use (Same capsular as: antigen Prevnar diphtheria 13) [id number] protein conjugate vaccine / Streptococc us pneumoniae serotype 14 capsular antigen diphtheria [id number] protein conjugate vaccine / Streptococc us pneumoniae serotype 18C capsular antigen d Streptococc 2020- No Notes: Jose Francisco zhang 2-06 Shake well l pneumoniae 14:12: prior to Her ivory serotype 1 45 use (Same capsular as: antigen Prevnar diphtheria 13) [id number] protein conjugate vaccine / Streptococc us pneumoniae serotype 14 capsular antigen diphtheria [id number] protein conjugate vaccine / Streptococc us pneumoniae serotype 18C capsular antigen d Streptococc 2019- No Notes: Jose Francisco zhang 2-06 Shake well l pneumoniae 14:12: prior to Her ivory serotype 1 45 use (Same capsular as: antigen Prevnar diphtheria 13) [id number] protein conjugate vaccine / Streptococc us pneumoniae serotype 14 capsular antigen diphtheria [id number] protein conjugate vaccine / Streptococc us pneumoniae serotype 18C capsular antigen d Streptococc 2019-10 No Notes: Jose Francisco zhang us 2-06 Shake well l pneumoniae 14:12: prior to Her ivory serotype 1 45 use (Same capsular as: antigen Prevnar diphtheria 13) [id number] protein conjugate vaccine / Streptococc us pneumoniae serotype 14 capsular antigen diphtheria [id number] protein conjugate vaccine / Streptococc us pneumoniae [...] a 2-06 Take 1 l 14:00: hour [place] 00 before or 2 hours after meal; Enteral feeds may interefere with the absorption of this medication . (Same as:Levothr oid) Thyroxine 2019-10 No Notes: Memori a 2-06 Take 1 l 14:00: hour [place] 00 before or 2 hours after meal; Enteral feeds may interefere with the absorption of this medication . (Same as:Levothr oid) Thyroxine 2019-10 No Notes: Memori a 2-06 Take 1 l 14:00: hour [place] 00 before or 2 hours after meal; [...] a 2-06 Take 1 l 14:00: hour [place] 00 before or 2 hours after meal; [...] a 2-06 Take 1 l 14:00: hour [place] 00 before or 2 hours after meal; [...] a 2-06 Take 1 l 14:00: hour [place] 00 before or 2 hours after meal; [...] Memoria 2-06 Route: l 12:39: IVP, Drug [place] 00 Form: SOLN, Dosing Weight 104.545, kg, ONCALL, STAT, Start date: 09/05/20 6:39:00 RECYCLE DRIVER, Duration: 1 doses or times, Dose = 2.2ml/kg, Max dose = 100ml -- "To be infused by Radiology Staff ONLY" Iohexol 2020-1 No 100 mL, Memoria 2-06 Route: l 12:39: IVP, Drug [place] 00 Form: SOLN, Dosing Weight 104.545, kg, ONCALL, STAT, Start date: 09/05/20 6:39:00 RECYCLE DRIVER, Duration: 1 doses or times, Dose = 2.2ml/kg, Max dose = 100ml -- "To be infused by Radiology Staff ONLY" Iohexol 2020-1 No 100 mL, Memoria 2- Route: l 12:39: IVP, Drug [place] 00 Form: SOLN, Dosing Weight 104.545, kg, ONCALL, STAT, Start date: 09/05/20 6:39:00 RECYCLE DRIVER, Duration: 1 doses or times, Dose = 2.2ml/kg, Max dose = 100ml -- "To be infused by Radiology Staff ONLY" Iohexol 2020-1 No 100 mL, Memoria 2-06 Route: l 12:39: IVP, Drug [place] 00 Form: SOLN, Dosing Weight 104.545, kg, ONCALL, STAT, Start date: 09/05/20 6:39:00 RECYCLE DRIVER, Duration: 1 doses or times, Dose = 2.2ml/kg, Max dose = 100ml -- "To be infused by Radiology Staff ONLY" Iohexol 2020-1 No 100 mL, Memoria 2-06 Route: l 12:39: IVP, Drug [place] 00 Form: SOLN, Dosing Weight 104.545, kg, ONCALL, STAT, Start date: 09/05/20 6:39:00 RECYCLE DRIVER, Duration: 1 doses or times, Dose = 2.2ml/kg, Max dose = 100ml -- "To be infused by Radiology Staff ONLY" Iohexol 2020-1 No 100 mL, Memoria 2-06 Route: l 12:39: IVP, Drug [place] 00 Form: SOLN, Dosing Weight 104.545, kg, ONCALL, STAT, Start date: 09/05/20 6:39:00 RECYCLE DRIVER, Duration: 1 doses or times, Dose = 2.2ml/kg, Max dose = 100ml -- "To be infused by Radiology Staff ONLY" Iohexol 2020-1 No 100 mL, Memoria 2-06 Route: l 12:39: IVP, Drug [place] 00 Form: SOLN, Dosing Weight 104.545, kg, ONCALL, STAT, Start date: 09/05/20 6:39:00 RECYCLE DRIVER, Duration: 1 doses or times, Dose = 2.2ml/kg, Max dose = 100ml -- "To be infused by Radiology Staff ONLY" Iohexol 2020-1 No 100 mL, Memoria 2-06 Route: l 12:39: IVP, Drug [place] 00 Form: SOLN, Dosing Weight 104.545, kg, ONCALL, STAT, Start date: 09/05/20 6:39:00 RECYCLE DRIVER, Duration: 1 doses or times, Dose = 2.2ml/kg, Max dose = 100ml -- "To be infused by Radiology Staff ONLY" Iohexol 2020-1 No 100 mL, Memoria 2-06 Route: l 12:39: IVP, Drug [place] 00 Form: SOLN, Dosing Weight 104.545, kg, ONCALL, STAT, Start date: 09/05/20 6:39:00 RECYCLE DRIVER, Duration: 1 doses or times, Dose = 2.2ml/kg, Max dose = 100ml -- "To be infused by Radiology Staff ONLY" Iohexol 2020-1 No 100 mL, Memoria 2-06 Route: l 12:39: IVP, Drug [place] 00 Form: SOLN, Dosing Weight 104.545, kg, ONCALL, STAT, Start date: 09/05/20 6:39:00 RECYCLE DRIVER, Duration: 1 doses or times, Dose = 2.2ml/kg, Max dose = 100ml -- "To be infused by Radiology Staff ONLY" Iohexol 2020-1 No 100 mL, Memoria 2-06 Route: l 12:39: IVP, Drug [place] 00 Form: SOLN, Dosing Weight 104.545, kg, ONCALL, STAT, Start date: 09/05/20 6:39:00 RECYCLE DRIVER, Duration: 1 doses or times, Dose = 2.2ml/kg, Max dose = 100ml -- "To be infused by Radiology Staff ONLY" Iohexol 2020-1 No 100 mL, Memoria 2-06 Route: l 12:39: IVP, Drug [place] 00 Form: SOLN, Dosing Weight 104.545, kg, ONCALL, STAT, Start date: 09/05/20 6:39:00 RECYCLE DRIVER, Duration: 1 doses or times, Dose = 2.2ml/kg, Max dose = 100ml -- "To be infused by Radiology Staff ONLY" Iohexol 2020-1 No 100 mL, Memoria 2-06 Route: l 12:39: IVP, Drug [place] 00 Form: SOLN, Dosing Weight 104.545, kg, ONCALL, STAT, Start date: 09/05/20 6:39:00 RECYCLE DRIVER, Duration: 1 doses or times, Dose = 2.2ml/kg, Max dose = 100ml -- "To be infused by Radiology Staff ONLY" Iohexol 2020-1 No 100 mL, Memoria 2-06 Route: l 12:39: IVP, Drug [place] 00 Form: SOLN, Dosing Weight 104.545, kg, ONCALL, STAT, Start date: 09/05/20 6:39:00 RECYCLE DRIVER, Duration: 1 doses or times, Dose = 2.2ml/kg, Max dose = 100ml -- "To be infused by Radiology Staff ONLY" Iohexol 2020-1 No 100 mL, Memoria 2-06 Route: l 12:39: IVP, Drug [place] 00 Form: SOLN, Dosing Weight 104.545, kg, ONCALL, STAT, Start date: 09/05/20 6:39:00 RECYCLE DRIVER, Duration: 1 doses or times, Dose = 2.2ml/kg, Max dose = 100ml -- "To be infused by Radiology Staff ONLY" Iohexol 2020-1 No 100 mL, Memoria 2-06 Route: l 12:39: IVP, Drug [place] 00 Form: SOLN, Dosing Weight 104.545, kg, ONCALL, STAT, Start date: 09/05/20 6:39:00 RECYCLE DRIVER, Duration: 1 doses or times, Dose = 2.2ml/kg, Max dose = 100ml -- "To be infused by Radiology Staff ONLY" Iohexol 2019-10 No 100 mL, Memoria 2-06 Route: l 12:39: IVP, Drug [place] 00 Form: SOLN, Dosing Weight 104.545, kg, ONCALL, STAT, Start date: 09/05/20 6:39:00 RECYCLE DRIVER, Duration: 1 doses or times, Dose = 2.2ml/kg, Max dose = 100ml -- "To be infused by Radiology Staff ONLY" Iohexol 2019-10 No 100 mL, Memoria 2-06 Route: l 12:39: IVP, Drug [place] 00 Form: SOLN, Dosing Weight 104.545, kg, ONCALL, STAT, Start date: 09/05/20 6:39:00 RECYCLE DRIVER, Duration: 1 doses or times, Dose = [...] en 2-06 acetaminop l 07:00: hen 4000 [place] 00 mg/day (4 gm/day). (Same as: Tylenol Extra Strength) Acetaminoph 2019-10 No Notes: Max Memoria en 2-06 acetaminop l 07:00: hen 4000 [place] 00 mg/day (4 gm/day). (Same as: Tylenol Extra Strength) Acetaminoph 2019-10 No Notes: Max [facility]oria en 2-06 acetaminop l 07:00: hen 4000 [place] 00 mg/day (4 gm/day). (Same as: Tylenol Extra Strength) Acetaminoph 2019-10 No Notes: Max [facility]oria en 2-06 acetaminop l 07:00: hen 4000 [place] 00 mg/day (4 gm/day). (Same as: Tylenol Extra Strength) Acetaminoph 2019-10 No Notes: Max [facility]oria en 2-06 acetaminop l 07:00: hen 4000 [place] 00 mg/day (4 gm/day). (Same as: Tylenol Extra Strength) Acetaminoph 2019-10 No Notes: Max Memoria en 2-06 acetaminop l 07:00: hen 4000 [place] 00 mg/day (4 gm/day). (Same as: Tylenol Extra Strength) Acetaminoph 2019-10 No Notes: Max Memoria en 2-06 acetaminop l 07:00: hen 4000 [place] 00 mg/day (4 gm/day). (Same as: Tylenol Extra Strength) Acetaminoph 2019-10 No Notes: Max Memoria en 2-06 acetaminop l 07:00: hen 4000 [place] 00 mg/day (4 gm/day). (Same as: Tylenol Extra Strength) Acetaminoph 2019-10 No Notes: Max Memoria en 2-06 acetaminop l 07:00: hen 4000 [place] 00 mg/day (4 gm/day). (Same as: Tylenol Extra Strength) Acetaminoph 2019-10 No Notes: Max [facility]oria en 2-06 acetaminop l 07:00: hen 4000 [place] 00 mg/day (4 gm/day). (Same as: Tylenol [...] l oral tablet 06:48: BID, # 180 [place] 00 tab, 1 Refill(s) amLODIPine 2019-10 Yes [...] l oral tablet 06:48: BID, # 180 [place] 00 tab, 1 Refill(s) amLODIPine 2019-10 Yes [...] tab, PO, l Tablet 06:48: Daily, # [place] 00 60 tab, 1 Refill(s) Trelegy 2019-10 [...] tab, PO, l Tablet 06:48: Daily, # [place] 00 60 tab, 1 Refill(s) Trelegy 2019-10 [...] tab, PO, l Tablet 06:48: Daily, # [place] 00 60 tab, 1 Refill(s) Trelegy 2019-10 [...] l oral tablet 06:48: BID, # 180 [place] 00 tab, 1 Refill(s) amLODIPine 2019-10 Yes 10 mg = 1 Me moria 10 mg oral 2-06 tab, PO, l tablet 06:48: Daily, # [place] 00 90 tab, 0 Refill(s) escitalopra 2019-10 [...] tab, PO, l Tablet 06:48: Daily, # [place] 00 60 tab, 1 Refill(s) Trelegy 2019-10 [...] l oral tablet 06:48: BID, # 180 [place] 00 tab, 1 Refill(s) amLODIPine 2019-10 Yes 10 mg = 1 Me moria 10 mg oral 2-06 tab, PO, l tablet 06:48: Daily, # [place] 00 90 tab, 0 Refill(s) escitalopra 2019-10 [...] tab, PO, l tablet 06:48: Daily, # [place] 00 90 tab, 0 Refill(s) escitalopra 2019-10 [...] tab, PO, l Tablet 06:48: Daily, # [place] 00 60 tab, 1 Refill(s) Trelegy 2019-10 [...] l oral tablet 06:48: BID, # 180 [place] 00 tab, 1 Refill(s) amLODIPine 2019-10 Yes [...] tab, PO, l Tablet 06:48: Daily, # [place] 00 60 tab, 1 Refill(s) Trelegy 2019-10 [...] l oral tablet 06:48: BID, # 180 [place] 00 tab, 1 Refill(s) amLODIPine 2019-10 Yes 10 mg = 1 Me moria 10 mg oral 2-06 tab, PO, l tablet 06:48: Daily, # [place] 00 90 tab, 0 Refill(s) escitalopra 2019-10 [...] tab, PO, l Tablet 06:48: Daily, # [place] 00 60 tab, 1 Refill(s) Trelegy 2019-10 [...] l oral tablet 06:48: BID, # 180 [place] 00 tab, 1 Refill(s) amLODIPine 2019-10 Yes [...] tab, PO, l tablet 06:48: Daily, # [place] 00 90 tab, 0 Refill(s) escitalopra 2019-10 [...] # 180 [place] 00 tab, 1 Refill(s) spironolact 2019-10 Yes [...] COPD, # 1 ea, 0 Refill(s) carvedilol 2019-10 Yes 6.25 mg = Me moria 6.25 mg 2-06 1 tab, PO, l oral tablet 06:48: BID, # 180 [place] 00 tab, 1 Refill(s) amLODIPine 2019-10 Yes 10 mg = 1 Me moria 10 mg oral 2-06 tab, PO, l tablet 06:48: Daily, # [place] 00 90 tab, 0 Refill(s) escitalopra 2019-10 [...] tab, PO, l tablet 06:48: Daily, # [place] 00 90 tab, 0 Refill(s) Trelegy 2019-10 [...] tab, PO, l Tablet 06:48: Daily, # [place] 00 60 tab, 1 Refill(s) Trelegy 2019-10 [...] l oral tablet 06:48: BID, # 180 [place] 00 tab, 1 Refill(s) amLODIPine 2019-10 Yes 10 mg = 1 Me moria 10 mg oral 2-06 tab, PO, l tablet 06:48: Daily, # [place] 00 90 tab, 0 Refill(s) escitalopra 2019-10 [...] tab, PO, l Tablet 06:48: Daily, # [place] 00 60 tab, 1 Refill(s) Trelegy 2019-10 Yes = 1 Memoria Ellipta 2-06 inhalation l inhalation 06:48: , PO, Aajy n powder 00 Daily, PRN COPD, # 1 ea, 0 Refill(s) Dextrose 2019-10 No 12.5 gm, Memor ia 50% Syringe 2 25 mL, l (D50W) 06:47: Route: [place] 00 IVP, Drug Form: INJ, Dosing Weight 104.545, kg, PRN, PRN Blood Glucose Results, Start date: 09/05/20 0:47:00 RECYCLE DRIVER, Duration: 30 day, Stop date: 10/05/20 0:46:00 RECYCLE DRIVER, 0 Glucagon 2019-10 No 1 mg, Memoria 2-06 Route: IM, l 06:47: Drug form: PDR/INJ, PRN, Dosing Weight 104.545, kg, PRN Blood Glucose Results, Start date: 09/05/20 0:47:00 RECYCLE DRIVER, Duration: 30 day, Stop date: 10/05/20 0:46:00 RECYCLE DRIVER, 0 sennosides, 2019-10 No Notes: Jose Francisco [...] Total Volume: 1,000, Start date: 09/05/20 0:47:00 RECYCLE DRIVER, Duration: 1 day, Stop date: 09/06/20 0:46:00 RECYCLE DRIVER, 1.97, m2, 0 Tums 2019-10 No Notes: [...] 0.65% 2- (Same as: l solution 06:47: Wool[place], [place] 00 Deep Sea Nasal Jameson). Tessalon 2019-10 No Notes: Memoria Perles 2- [...] Blood Glucose Results, Start date: 09/05/20 0:47:00 RECYCLE DRIVER, Duration: 30 day, Stop date: 10/05/20 0:46:00 RECYCLE DRIVER, 0 Glucagon 2019-10 No 1 mg, Memoria 11-06 Route: IM, l 06:47: Drug form: PDR/INJ, PRN, Dosing Weight 104.545, kg, PRN Blood Glucose Results, Start date: 09/05/20 0:47:00 RECYCLE DRIVER, Duration: 30 day, Stop date: 10/05/20 0:46:00 RECYCLE DRIVER, 0 sennosides, 2019-10 No Notes: Jose Francisco zhang ASSISTED 2-06 (Same as: l 06:47: Senokot) POLYETHYLEN 2019-10 No Notes: Jose Francisco zhang E GLYCOL 2-06 Dissolve l 3350 06:47: in 8 oz of water or juice. (Same as: Miralax) Ondansetron 2020-1 No Notes: Jose Francisco zhang 2-06 (Same as: l 06:47: Zofran) [place] 00 MEDICATION WASTE Product Size: 4 mg Product Wasted: ___ mg Melatonin 2019-10 No Notes: Memori a 2-06 (Same as: l 06:47: Melatonin) [place] 00 LR IV 1,000 2019-10 No 1,000 mL, M emoria mL 2-06 Rate: 100 l 06:47: ml/hr, Infuse over: 10 hr, Route: IV, Dosing Weight 104.545 kg, Total Volume: 1,000, Start date: 09/05/20 0:47:00 RECYCLE DRIVER, Duration: 1 day, Stop date: 09/06/20 0:46:00 RECYCLE DRIVER, 1.97, m2, 0 Tums 2019-10 No Notes: [...] 0.65% - (Same as: l solution 06:47: Wool[place], [place] 00 Deep Sea Nasal Jameson). Tessalon 2019-10 No Notes: Memoria Perles 2- (Same As: l 06:47: Tessalon [place] 00 Perles) "Do Not Crush" Guaifenesin 2019-10 No Notes: Jose Francisco zhang 2-06 (Same as: l 06:47: Organidin [place] 00 NR) Blistex 2019-10 No Notes: Memoria [...] Blood Glucose Results, Start date: 09/05/20 0:47:00 RECYCLE DRIVER, Duration: 30 day, Stop date: 10/05/20 0:46:00 RECYCLE DRIVER, 0 Glucagon 2019-10 No 1 mg, Memoria 11-06 Route: IM, l 06:47: Drug form: Ra[place] PDR/INJ, PRN, Dosing Weight 104.545, kg, PRN Blood Glucose Results, Start date: 09/05/20 0:47:00 RECYCLE DRIVER, Duration: 30 day, Stop date: 10/05/20 0:46:00 RECYCLE DRIVER, 0 sennosides, 2019-10 No Notes: Jose Francisco [...] Total Volume: 1,000, Start date: 09/05/20 0:47:00 RECYCLE DRIVER, Duration: 1 day, Stop date: 09/06/20 0:46:00 RECYCLE DRIVER, 1.97, m2, 0 Tums 2019-10 No Notes: [...] 0.65% 2- (Same as: l solution 06:47: Wool[place], Raul 00 Deep Sea Nasal Jameson). 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, Duration: 30 day, Stop date: 10/05/20 0:46:00 RECYCLE DRIVER, 0 Glucagon 2019-10 No 1 mg, Memoria 11-06 Route: IM, l 06:47: Drug form: PDR/INJ, PRN, Dosing Weight 104.545, kg, PRN Blood Glucose Results, Start date: 09/05/20 0:47:00 RECYCLE DRIVER, Duration: 30 day, Stop date: 10/05/20 0:46:00 RECYCLE DRIVER, 0 sennosides, 2019-10 No Notes: Jose Francisco [...] Total Volume: 1,000, Start date: 09/05/20 0:47:00 RECYCLE DRIVER, Duration: 1 day, Stop date: 09/06/20 0:46:00 RECYCLE DRIVER, 1.97, m2, 0 Tums 2019-10 No Notes: [...] 0.65% 2-06 (Same as: l solution 06:47: [place], [place] Deep Sea Nasal Jameson). Tessalon 2019-10 No Notes: Memoria Perles 2-06 (Same As: l 06:47: Tessalon [place] 00 Perles) "Do Not Crush" Guaifenesin 2019-10 No Notes: Jose Francisco zhang 2-06 (Same as: l 06:47: Organidin [place] 00 NR) Blistex 2019-10 No Notes: Memoria [...] Blood Glucose Results, Start date: 09/05/20 0:47:00 RECYCLE DRIVER, Duration: 30 day, Stop date: 10/05/20 0:46:00 RECYCLE DRIVER, 0 Glucagon 2019-10 No 1 mg, Memoria 11-06 Route: IM, l 06:47: Drug form: [place] 00 PDR/INJ, PRN, Dosing Weight 104.545, kg, PRN Blood Glucose Results, Start date: 09/05/20 0:47:00 RECYCLE DRIVER, Duration: 30 day, Stop date: 10/05/20 0:46:00 RECYCLE DRIVER, 0 sennosides, 2019-10 No Notes: Jose Francisco [...] Total Volume: 1,000, Start date: 09/05/20 0:47:00 RECYCLE DRIVER, Duration: 1 day, Stop date: 09/06/20 0:46:00 RECYCLE DRIVER, 1.97, m2, 0 Tums 2019-10 No Notes: [...] 0.65% 2- (Same as: l solution 06:47: [place], Deep Sea Nasal Jameson). 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, Duration: 30 day, Stop date: 10/05/20 0:46:00 RECYCLE DRIVER, 0 Glucagon 2019-10 No 1 mg, Memoria 2-06 Route: IM, l 06:47: Drug form: PDR/INJ, PRN, Dosing Weight 104.545, kg, PRN Blood Glucose Results, Start date: 09/05/20 0:47:00 RECYCLE DRIVER, Duration: 30 day, Stop date: 10/05/20 0:46:00 RECYCLE DRIVER, 0 sennosides, 2019-10 No Notes: Jose Francisco [...] Total Volume: 1,000, Start date: 09/05/20 0:47:00 RECYCLE DRIVER, Duration: 1 day, Stop date: 09/06/20 0:46:00 RECYCLE DRIVER, 1.97, m2, 0 Tums 2019-10 No Notes: [...] 0.65% 2- (Same as: l solution 06:47: Wool[place], Raul 00 Deep Sea Nasal Jameson). 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, Duration: 30 day, Stop date: 10/05/20 0:46:00 RECYCLE DRIVER, 0 Glucagon 2019-10 No 1 mg, Memoria 2 Route: IM, l 06:47: Drug form: [place] 00 PDR/INJ, PRN, Dosing Weight 104.545, kg, PRN Blood Glucose Results, Start date: 09/05/20 0:47:00 RECYCLE DRIVER, Duration: 30 day, Stop date: 10/05/20 0:46:00 RECYCLE DRIVER, 0 sennosides, 2019-10 No Notes: Jose Francisco [...] Total Volume: 1,000, Start date: 09/05/20 0:47:00 RECYCLE DRIVER, Duration: 1 day, Stop date: 09/06/20 0:46:00 RECYCLE DRIVER, 1.97, m2, 0 Tums 2019-10 No Notes: [...] 0.65% 2- (Same as: l solution 06:47: Wool[place], Raul 00 Deep Sea Nasal Jameson). Tessalon 2019-10 No Notes: Memoria Perles 2- [...] Blood Glucose Results, Start date: 09/05/20 0:47:00 RECYCLE DRIVER, Duration: 30 day, Stop date: 10/05/20 0:46:00 RECYCLE DRIVER, 0 Glucagon 2019-10 No 1 mg, Memoria 2 Route: IM, l 06:47: Drug form: PDR/INJ, PRN, Dosing Weight 104.545, kg, PRN Blood Glucose Results, Start date: 09/05/20 0:47:00 RECYCLE DRIVER, Duration: 30 day, Stop date: 10/05/20 0:46:00 RECYCLE DRIVER, 0 sennosides, 2019-10 No Notes: Jose Francisco [...] Total Volume: 1,000, Start date: 09/05/20 0:47:00 RECYCLE DRIVER, Duration: 1 day, Stop date: 09/06/20 0:46:00 RECYCLE DRIVER, 1.97, m2, 0 Tums 2019-10 No Notes: [...] 0.65% 2-06 (Same as: l solution 06:47: Woolrich, [place] 00 Deep Sea Nasal Jameson). 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, Duration: 30 day, Stop date: 10/05/20 0:46:00 RECYCLE DRIVER, 0 Glucagon 2019-10 No 1 mg, Memoria 11-06 Route: IM, l 06:47: Drug form: PDR/INJ, PRN, Dosing Weight 104.545, kg, PRN Blood Glucose Results, Start date: 09/05/20 0:47:00 RECYCLE DRIVER, Duration: 30 day, Stop date: 10/05/20 0:46:00 RECYCLE DRIVER, 0 sennosides, 2019-10 No Notes: Jose Francisco [...] Total Volume: 1,000, Start date: 09/05/20 0:47:00 RECYCLE DRIVER, Duration: 1 day, Stop date: 09/06/20 0:46:00 RECYCLE DRIVER, 1.97, m2, 0 Tums 2019-10 No Notes: [...] 0.65% - (Same as: l solution 06:47: Woolrich, Raul 00 Deep Sea Nasal Jameson). Tessalon 2019-10 No Notes: Memoria Perles - (Same As: l 06:47: Tessalon Perles) "Do Not Crush" Guaifenesin 2019-10 No Notes: Jose Francisco zhang 2- (Same as: l 06:47: Organidin NR) Blistex [...] Blood Glucose Results, Start date: 09/05/20 0:47:00 RECYCLE DRIVER, Duration: 30 day, Stop date: 10/05/20 0:46:00 RECYCLE DRIVER, 0 Glucagon 2019-10 No 1 mg, Memoria 11-06 Route: IM, l 06:47: Drug form: PDR/INJ, PRN, Dosing Weight 104.545, kg, PRN Blood Glucose Results, Start date: 09/05/20 0:47:00 RECYCLE DRIVER, Duration: 30 day, Stop date: 10/05/20 0:46:00 RECYCLE DRIVER, 0 sennosides, 2019-10 No Notes: Jose Francisco [...] Total Volume: 1,000, Start date: 09/05/20 0:47:00 RECYCLE DRIVER, Duration: 1 day, Stop date: 09/06/20 0:46:00 RECYCLE DRIVER, 1.97, m2, 0 Tums 2019-10 No Notes: Memoria 2-06 (Same As: l 06:47: Tums) Calcium Carbonate 500 mg = 200 mg elemental calcium Dose = mg calcium carbonate ( mg elemental calcium) Simethicone 2019-10 No Notes: Jose Francisco zahng 2-06 (Same as: l 06:47: Mylicon) Lubricant 2019-10 No Notes: Memori a Eye Drops 2-06 (Same as: l 06:47: Aquasite) Nasal Moist 2019-10 No Notes: Jose Francisco zhang 0.65% 2-06 (Same as: l solution 06:47: [place]rich, [place] 00 Deep Sea Nasal Jameson). 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, Duration: 30 day, Stop date: 10/05/20 0:46:00 RECYCLE DRIVER, 0 Glucagon 2019-10 No 1 mg, Memoria 11-06 Route: IM, l 06:47: Drug form: [place] PDR/INJ, PRN, Dosing Weight 104.545, kg, PRN Blood Glucose Results, Start date: 09/05/20 0:47:00 RECYCLE DRIVER, Duration: 30 day, Stop date: 10/05/20 0:46:00 RECYCLE DRIVER, 0 sennosides, 2019-10 No Notes: Jose Francisco [...] Total Volume: 1,000, Start date: 09/05/20 0:47:00 RECYCLE DRIVER, Duration: 1 day, Stop date: 09/06/20 0:46:00 RECYCLE DRIVER, 1.97, m2, 0 Tums 2019-10 No Notes: [...] 0.65% 2- (Same as: l solution 06:47: [place], Deep Sea Nasal Jameson). Tessalon 2019-10 No Notes: Memoria Perles 2- [...] Blood Glucose Results, Start date: 09/05/20 0:47:00 RECYCLE DRIVER, Duration: 30 day, Stop date: 10/05/20 0:46:00 RECYCLE DRIVER, 0 Glucagon 2019-10 No 1 mg, Memoria 2 Route: IM, l 06:47: Drug form: PDR/INJ, PRN, Dosing Weight 104.545, kg, PRN Blood Glucose Results, Start date: 09/05/20 0:47:00 RECYCLE DRIVER, Duration: 30 day, Stop date: 10/05/20 0:46:00 RECYCLE DRIVER, 0 sennosides, 2019-10 No Notes: Jose Francisco [...] Total Volume: 1,000, Start date: 09/05/20 0:47:00 RECYCLE DRIVER, Duration: 1 day, Stop date: 09/06/20 0:46:00 RECYCLE DRIVER, 1.97, m2, 0 Tums 2019-10 No Notes: Memoria 2-06 (Same As: l 06:47: Tums) Calcium Carbonate 500 mg = 200 mg elemental calcium Dose = mg calcium carbonate ( mg elemental calcium) Simethicone 2019-10 No Notes: Jose Francisco zahng 2-06 (Same as: l 06:47: Mylicon) Lubricant 2019-10 No Notes: Memori a Eye Drops 2-06 (Same as: l 06:47: Aquasite) Nasal Moist 2019-10 No Notes: Jose Francisco zhang 0.65% 2-06 (Same as: l solution 06:47: [place], Deep Sea Nasal Jameson). 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 Tessalon 2019-10 No Notes: Memoria Perles 2- (Same As: l 06:47: Tessalon Perles) "Do Not Crush" Guaifenesin 2019-10 No Notes: Jose Francisco zhang 2-06 (Same as: l 06:47: Organidin [place] 00 NR) Blistex 2019-10 No Notes: Memoria [...] Blood Glucose Results, Start date: 09/05/20 0:47:00 RECYCLE DRIVER, Duration: 30 day, Stop date: 10/05/20 0:46:00 RECYCLE DRIVER, 0 Glucagon 2019-10 No 1 mg, Memoria 2- Route: IM, l 06:47: Drug form: PDR/INJ, PRN, Dosing Weight 104.545, kg, PRN Blood Glucose Results, Start date: 09/05/20 0:47:00 RECYCLE DRIVER, Duration: 30 day, Stop date: 10/05/20 0:46:00 RECYCLE DRIVER, 0 sennosides, 2019-10 No Notes: Jose Francisco [...] Total Volume: 1,000, Start date: 09/05/20 0:47:00 RECYCLE DRIVER, Duration: 1 day, Stop date: 09/06/20 0:46:00 RECYCLE DRIVER, 1.97, m2, 0 Tums 2019-10 No Notes: [...] 0.65% 2-06 (Same as: l solution 06:47: [place], Raul 00 Deep Sea Nasal Jameson). Tessalon 2019-10 No Notes: Memoria Perles 2-06 (Same As: l 06:47: Tessalon Perles) "Do Not Crush" Guaifenesin 2019-10 No Notes: Jose Francisco zhang 2-06 (Same as: l 06:47: Organidin [place] 00 NR) Blistex 2019-10 No Notes: Memoria [...] Blood Glucose Results, Start date: 09/05/20 0:47:00 RECYCLE DRIVER, Duration: 30 day, Stop date: 10/05/20 0:46:00 RECYCLE DRIVER, 0 Glucagon 2019-10 No 1 mg, Memoria 11-06 Route: IM, l 06:47: Drug form: [place] 00 PDR/INJ, PRN, Dosing Weight 104.545, kg, PRN Blood Glucose Results, Start date: 09/05/20 0:47:00 RECYCLE DRIVER, Duration: 30 day, Stop date: 10/05/20 0:46:00 RECYCLE DRIVER, 0 sennosides, 2019-10 No Notes: Jose Francisco [...] Total Volume: 1,000, Start date: 09/05/20 0:47:00 RECYCLE DRIVER, Duration: 1 day, Stop date: 09/06/20 0:46:00 RECYCLE DRIVER, 1.97, m2, 0 Tums 2019-10 No Notes: [...] 0.65% 11-06 (Same as: l solution 06:47: [place], Raul 00 Deep Sea Nasal Jameson). Tessalon 2019-10 No Notes: Memoria Perles 2- [...] Blood Glucose Results, Start date: 09/05/20 0:47:00 RECYCLE DRIVER, Duration: 30 day, Stop date: 10/05/20 0:46:00 RECYCLE DRIVER, 0 Glucagon 2019-10 No 1 mg, Memoria 2 Route: IM, l 06:47: Drug form: PDR/INJ, PRN, Dosing Weight 104.545, kg, PRN Blood Glucose Results, Start date: 09/05/20 0:47:00 RECYCLE DRIVER, Duration: 30 day, Stop date: 10/05/20 0:46:00 RECYCLE DRIVER, 0 Dextrose 2019-10 No 12.5 gm, Memor ia 50% Syringe 2-06 25 mL, l (D50W) 06:47: Route: Raul 00 IVP, Drug Form: INJ, Dosing Weight 104.545, kg, PRN, PRN Blood Glucose Results, Start date: 09/05/20 0:47:00 RECYCLE DRIVER, Duration: 30 day, Stop date: 10/05/20 0:46:00 RECYCLE DRIVER, 0 Glucagon 2019-10 No 1 mg, Memoria 2 Route: IM, l 06:47: Drug form: Raul 00 PDR/INJ, PRN, Dosing Weight 104.545, kg, PRN Blood Glucose Results, Start date: 09/05/20 0:47:00 RECYCLE DRIVER, Duration: 30 day, Stop date: 10/05/20 0:46:00 RECYCLE DRIVER, 0 sennosides, 2019-10 No Notes: Jose Francisco [...] Total Volume: 1,000, Start date: 09/05/20 0:47:00 RECYCLE DRIVER, Duration: 1 day, Stop date: 09/06/20 0:46:00 RECYCLE DRIVER, 1.97, m2, 0 Tums 2019-10 No Notes: [...] 0.65% 2- (Same as: l solution 06:47: [place], Raul 00 Deep Sea Nasal Jameson). Tessalon 2019-10 No Notes: Memoria Perles 2- (Same As: l 06:47: Tessalon Perles) "Do Not Crush" Guaifenesin 2019-10 No Notes: Jose Francisco zhang 2-06 (Same as: l 06:47: Organidin [place] 00 NR) Blistex 2019-10 No Notes: Memoria topical 2- Same as: l ointment 06:47: Blistex Ajay n 00 Albuterol 2019-10 No Notes: SEE Me moria 0.83 MG/ML 2-06 RT l Inhalant 06:47: DOCUMENTAT Her ivory Solution 00 ION (Same as: Proventil) sennosides, 2019-10 No Notes: Jose Francisco zhang [...] mL 2-06 Rate: 100 l 06:47: ml/hr, [place] 00 Infuse over: 10 hr, Route: IV, Dosing Weight 104.545 kg, Total Volume: 1,000, Start date: 09/05/20 0:47:00 RECYCLE DRIVER, Duration: 1 day, Stop date: 09/06/20 0:46:00 RECYCLE DRIVER, 1.97, m2, 0 Tums 2019-10 No Notes: [...] 0.65% 2-06 (Same as: l solution 06:47: [place], Deep Sea Nasal Jameson). Tessalon 2019-10 No Notes: Memoria Perles 2-06 (Same As: l 06:47: Tessalon Perles) "Do Not Crush" Guaifenesin 2019-10 No Notes: Jose Francisco zhang 2-06 (Same as: l 06:47: Organidin NR) Dextrose 2019-10 No 12.5 gm, Memor ia 50% Syringe 2-06 25 mL, l (D50W) 06:47: Route: IVP, Drug Form: INJ, Dosing Weight 104.545, kg, PRN, PRN Blood Glucose Results, Start date: 09/05/20 0:47:00 RECYCLE DRIVER, Duration: 30 day, Stop date: 10/05/20 0:46:00 RECYCLE DRIVER, 0 Glucagon 2019-10 No 1 mg, Memoria 2-06 Route: IM, l 06:47: Drug form: PDR/INJ, PRN, Dosing Weight 104.545, kg, PRN Blood Glucose Results, Start date: 09/05/20 0:47:00 RECYCLE DRIVER, Duration: 30 day, Stop date: 10/05/20 0:46:00 RECYCLE DRIVER, 0 sennosides, 2019-10 No Notes: Jose Francisco zhang ASSISTED 2-06 (Same as: l 06:47: Senokot) [place] 00 POLYETHYLEN 2019-10 No Notes: Jose Francisco zhang E GLYCOL 2-06 Dissolve l 3350 06:47: in 8 oz of Raul 00 water or juice. (Same as: Miralax) Ondansetron 2019-10 No Notes: Jose Francisco zhang 2-06 (Same as: l 06:47: Zofran) MEDICATION WASTE Product Size: 4 mg Product Wasted: ___ mg Melatonin 2019-10 No Notes: Memori a 2-06 (Same as: l 06:47: Melatonin) [place] 00 Blistex 2019-10 No Notes: Memoria topical 2-06 Same as: l ointment 06:47: Blistex Ajay n 00 LR IV 1,000 2019-10 No 1,000 mL, M emoria mL 2- Rate: 100 l 06:47: ml/hr, Infuse over: 10 hr, Route: IV, Dosing Weight 104.545 kg, Total Volume: 1,000, Start date: 09/05/20 0:47:00 RECYCLE DRIVER, Duration: 1 day, Stop date: 09/06/20 0:46:00 RECYCLE DRIVER, 1.97, m2, 0 Tums 2019-10 No Notes: [...] 0.65% 2-06 (Same as: l solution 06:47: [place], Raul 00 Deep Sea Nasal Jameson). Tessalon 2019-10 No Notes: Memoria Perles 2-06 (Same As: l 06:47: Tessalon Perles) "Do Not Crush" Guaifenesin 2019-10 No Notes: Jose Francisco zhang 2-06 (Same as: l 06:47: Organidin Raul 00 NR) Blistex 2019- No Notes: Memoria topical 2-06 Same as: [...] zhang 2-06 (Same as: l 06:45: Apresoline [place] 00 ) Push over 5 minutes Hydralazine 2019-10 No Notes: Jose Francisco zhang 2-06 (Same as: l 06:45: Apresoline Raul 00 ) Push over 5 minutes Hydralazine 2019-10 No Notes: Jose Francisco zhang 2-06 (Same as: l 06:45: Apresoline Ralu 00 ) Push over 5 minutes Hydralazine 2019-10 No Notes: Jose Francisco zhang 2-06 (Same as: l 06:45: Apresoline Raul 00 ) Push over 5 minutes Hydralazine 2019-10 No Notes: Jose Francisco zhang 2-06 (Same as: l 06:45: Apresoline [place] 00 ) Push over 5 minutes Hydralazine 2019-10 No Notes: Jose Francisco zhang 2-06 (Same as: l 06:45: Apresoline [place] 00 ) Push over 5 minutes Hydralazine 2019-10 No Notes: Jose Francisco zhang 2-06 (Same as: l 06:45: Apresoline [place] 00 ) Push over 5 minutes Hydralazine 2019-10 No Notes: Jose Francisco zhang 2-06 (Same as: l 06:45: Apresoline [place] 00 ) Push over 5 minutes Hydralazine 2019-10 No Notes: Jose Francisco zhang 2-06 (Same as: l 06:45: Apresoline [place] 00 ) Push over 5 minutes Hydralazine 2019-10 No Notes: Jose Francisco zhang 2-06 (Same as: l 06:45: Apresoline Raul 00 ) Push over 5 minutes Hydralazine 2019-1 No Notes: Jose Francisco zhang 2-06 (Same [...] zhang 2-06 (Same as: l 06:45: Apresoline [place] 00 ) Push over 5 minutes Hydralazine 2019-10 No Notes: Jose Francisco zhang 2-06 (Same as: l 06:45: Apresoline Raul 00 ) Push over 5 minutes Hydralazine 2019-10 No Notes: Jose Francisco zhang 2-06 (Same as: l 06:45: Apresoline [place] 00 ) Push over 5 minutes Hydralazine 2019-10 No Notes: Jose Francisco zhang 2-06 (Same as: l 06:45: Apresoline [place] 00 ) Push over 5 minutes Hydralazine 2019-10 No Notes: Jose Francisco zhang 2-06 (Same as: l 06:45: Apresoline [place] 00 ) Push over 5 minutes Acetaminoph 2019-10 No 1 tab, Jose Francisco zhang en 325 MG / 2-06 Route: PO, l Hydrocodone 04:07: Drug Form: Raul Bitartrate 00 TAB, 5 MG Oral Dosing Tablet Weight 104.545, kg, ONCE, STAT, Start date: 09/04/20 22:07:00 RECYCLE DRIVER, Stop date: 09/04/20 22:07:00 RECYCLE DRIVER Acetaminoph 2019-10 No 1 tab, Jose Francisco zhang en 325 MG / 2-06 Route: PO, l Hydrocodone 04:07: Drug Form: [place] Bitartrate 00 TAB, 5 MG Oral Dosing Tablet Weight 104.545, kg, ONCE, STAT, Start date: 09/04/20 22:07:00 RECYCLE DRIVER, Stop date: 09/04/20 22:07:00 RECYCLE DRIVER Acetaminoph 2019-10 No 1 tab, Jose Francisco zhang en 325 MG / 2-06 Route: PO, l Hydrocodone 04:07: Drug Form: Raul Bitartrate 00 TAB, 5 MG Oral Dosing Tablet Weight 104.545, kg, ONCE, STAT, Start date: 09/04/20 22:07:00 RECYCLE DRIVER, Stop date: 09/04/20 22:07:00 RECYCLE DRIVER Acetaminoph 2019-10 No 1 tab, Jose Francisco zhang en 325 MG / 2-06 Route: PO, l Hydrocodone 04:07: Drug Form: [place] Bitartrate 00 TAB, 5 MG Oral Dosing Tablet Weight 104.545, kg, ONCE, STAT, Start date: 09/04/20 22:07:00 RECYCLE DRIVER, Stop date: 09/04/20 22:07:00 RECYCLE DRIVER Acetaminoph 2019-10 No 1 tab, Jose Francisco zhang en 325 MG / 2-06 Route: PO, l Hydrocodone 04:07: Drug Form: Raul Bitartrate 00 TAB, 5 MG Oral Dosing Tablet Weight 104.545, kg, ONCE, STAT, Start date: 09/04/20 22:07:00 RECYCLE DRIVER, Stop date: 09/04/20 22:07:00 RECYCLE DRIVER Acetaminoph 2019-10 No 1 tab, Jose Francisco zhang en 325 MG / 2-06 Route: PO, l Hydrocodone 04:07: Drug Form: Raul Bitartrate 00 TAB, 5 MG Oral Dosing Tablet Weight 104.545, kg, ONCE, STAT, Start date: 09/04/20 22:07:00 RECYCLE DRIVER, Stop date: 09/04/20 22:07:00 RECYCLE DRIVER Acetaminoph 2019-10 No 1 tab, Jose Francisco zhang en 325 MG / 2-06 Route: PO, l Hydrocodone 04:07: Drug Form: [place] Bitartrate 00 TAB, 5 MG Oral Dosing Tablet Weight 104.545, kg, ONCE, STAT, Start date: 09/04/20 22:07:00 RECYCLE DRIVER, Stop date: 09/04/20 22:07:00 RECYCLE DRIVER Acetaminoph 2019-10 No 1 tab, Jose Francisco zhang en 325 MG / 2-06 Route: PO, l Hydrocodone 04:07: Drug Form: Raul Bitartrate 00 TAB, 5 MG Oral Dosing Tablet Weight 104.545, kg, ONCE, STAT, Start date: 09/04/20 22:07:00 RECYCLE DRIVER, Stop date: 09/04/20 22:07:00 RECYCLE DRIVER Acetaminoph 2019-10 No 1 tab, Jose Francisco zhang en 325 MG / 2-06 Route: PO, l Hydrocodone 04:07: Drug Form: Raul Bitartrate 00 TAB, 5 MG Oral Dosing Tablet Weight 104.545, kg, ONCE, STAT, Start date: 09/04/20 22:07:00 RECYCLE DRIVER, Stop date: 09/04/20 22:07:00 RECYCLE DRIVER Acetaminoph 2019-10 No 1 tab, Jose Francisco zhang en 325 MG / 2-06 Route: PO, l Hydrocodone 04:07: Drug Form: [place] Bitartrate 00 TAB, 5 MG Oral Dosing Tablet Weight 104.545, kg, ONCE, STAT, Start date: 09/04/20 22:07:00 RECYCLE DRIVER, Stop date: 09/04/20 22:07:00 RECYCLE DRIVER Acetaminoph 2019-10 No 1 tab, Jose Francisco zhang en 325 MG / 2-06 Route: PO, l Hydrocodone 04:07: Drug Form: [place] Bitartrate 00 TAB, 5 MG Oral Dosing Tablet Weight 104.545, kg, ONCE, STAT, Start date: 09/04/20 22:07:00 RECYCLE DRIVER, Stop date: 09/04/20 22:07:00 RECYCLE DRIVER Acetaminoph 2019-10 No 1 tab, Jose Francisco zhang en 325 MG / 2-06 Route: PO, l Hydrocodone 04:07: Drug Form: Raul Bitartrate 00 TAB, 5 MG Oral Dosing Tablet Weight 104.545, kg, ONCE, STAT, Start date: 09/04/20 22:07:00 RECYCLE DRIVER, Stop date: 09/04/20 22:07:00 RECYCLE DRIVER Acetaminoph 2019-10 No 1 tab, Jose Francisco zhang en 325 MG / 2-06 Route: PO, l Hydrocodone 04:07: Drug Form: [place] Bitartrate 00 TAB, 5 MG Oral Dosing Tablet Weight 104.545, kg, ONCE, STAT, Start date: 09/04/20 22:07:00 RECYCLE DRIVER, Stop date: 09/04/20 22:07:00 RECYCLE DRIVER Acetaminoph 2019-10 No 1 tab, Jose Francisco zhang en 325 MG / 2-06 Route: PO, l Hydrocodone 04:07: Drug Form: [place] Bitartrate 00 TAB, 5 MG Oral Dosing Tablet Weight 104.545, kg, ONCE, STAT, Start date: 09/04/20 22:07:00 RECYCLE DRIVER, Stop date: 09/04/20 22:07:00 RECYCLE DRIVER Acetaminoph 2019-1 No 1 tab, Jose Francisco zhang en 325 MG / 206 Route: PO, l Hydrocodone 04:07: Drug Form: [place] Bitartrate 00 TAB, 5 MG Oral Dosing Tablet Weight 104.545, kg, ONCE, STAT, Start date: 09/04/20 22:07:00 RECYCLE DRIVER, Stop date: 09/04/20 22:07:00 RECYCLE DRIVER Acetaminoph 2019- No 1 tab, Jose Francisco zhang en 325 MG / 2 Route: PO, l Hydrocodone 04:07: Drug Form: Raul Bitartrate 00 TAB, 5 MG Oral Dosing Tablet Weight 104.545, kg, ONCE, STAT, Start date: 09/04/20 22:07:00 RECYCLE DRIVER, Stop date: 09/04/20 22:07:00 RECYCLE DRIVER Acetaminoph 2019-1 No 1 tab, Jose Francisco zhang en 325 MG / 06 Route: PO, l Hydrocodone 04:07: Drug Form: [place] Bitartrate 00 TAB, 5 MG Oral Dosing Tablet Weight 104.545, kg, ONCE, STAT, Start date: 09/04/20 22:07:00 RECYCLE DRIVER, Stop date: 09/04/20 22:07:00 RECYCLE DRIVER Acetaminoph 2019- No 1 tab, Jose Francisco zhang en 325 MG / 06 Route: PO, l Hydrocodone 04:07: Drug Form: Raul Bitartrate 00 TAB, 5 MG Oral Dosing Tablet Weight 104.545, kg, ONCE, STAT, Start date: 09/04/20 22:07:00 RECYCLE DRIVER, Stop date: 09/04/20 22:07:00 RECYCLE DRIVER HYDROcodone 2019- No 1{tbl} 1 tablet, [facility] -acetaminop 06-28 Oral, ity of hen (NORCO 20:30: 19:23 ONCE, 1 Carlos as 5) 5-325 mg 00 :00 dose, Mon Med ical tablet 1 06/28/20 at [facility] h tablet 1530, DIMITRIS metoprolol [...] Yes 1{tbl} Take 1 Un martha te-atropine -28 tablet by ity of (LOMOTIL) 12:14: mouth [place] 2.5-0.025 43 every 6 Medical mg tablet (six) Branch hours as needed. ALBUTEROL 2020-0 Yes Inhale. Unive rs SULFATE 9-28 ity of INHALE 12:14: [place] [facility] diphenoxyla 2020-0 Yes 1{tbl} [...] Jessie nn 00 tab, 3 Refill(s), Pharmacy: [facility] #[id number], 149.86, cm, 05/25/20 13:41:00 CDT, Height, 95.455, kg, 05/25/20 13:41:00 CDT, Weight primidone 2020-0 Yes 50 mg = 1 Mem oria 50 mg oral 8-25 tab, PO, l tablet 19:03: BID, # 180 Jessie nn 00 tab, 3 Refill(s), Pharmacy: [facility] #[id number], 149.86, cm, 05/25/20 13:41:00 CDT, Height, 95.455, kg, 05/25/20 13:41:00 CDT, Weight primidone 2020-0 Yes 50 mg = 1 Mem oria 50 mg oral 8-25 tab, PO, l tablet 19:03: BID, # 180 Jessie nn 00 tab, 3 Refill(s), Pharmacy: [facility] #[id number], 149.86, cm, 05/25/20 13:41:00 CDT, Height, 95.455, kg, 05/25/20 13:41:00 CDT, Weight primidone 2020-0 Yes 50 mg = 1 Mem oria 50 mg oral 8-25 tab, PO, l tablet 19:03: BID, # 180 Jessie nn 00 tab, 3 Refill(s), Pharmacy: [facility] #[id number], 149.86, cm, 05/25/20 13:41:00 CDT, Height, 95.455, kg, 05/25/20 13:41:00 CDT, Weight primidone 2020-0 Yes 50 mg = 1 Mem oria 50 mg oral 8-25 tab, PO, l tablet 19:03: BID, # 180 Jessie nn 00 tab, 3 Refill(s), Pharmacy: [facility] #[id number], 149.86, cm, 05/25/20 13:41:00 CDT, Height, 95.455, kg, 05/25/20 13:41:00 CDT, Weight primidone 2020-0 Yes 50 mg = 1 Mem oria 50 mg oral 8-25 tab, PO, l tablet 19:03: BID, # 180 Jessie nn 00 tab, 3 Refill(s), Pharmacy: [facility] #[id number], 149.86, cm, 05/25/20 13:41:00 CDT, Height, 95.455, kg, 05/25/20 13:41:00 CDT, Weight primidone 2020-0 Yes 50 mg = 1 Mem oria 50 mg oral 8-25 tab, PO, l tablet 19:03: BID, # 180 Jessie nn 00 tab, 3 Refill(s), Pharmacy: [facility] #[id number], 149.86, cm, 05/25/20 13:41:00 CDT, Height, 95.455, kg, 05/25/20 13:41:00 CDT, Weight primidone 2020-0 Yes 50 mg = 1 Mem oria 50 mg oral 8-25 tab, PO, l tablet 19:03: BID, # 180 Jessie nn 00 tab, 3 Refill(s), Pharmacy: [facility] #[id number], 149.86, cm, 05/25/20 13:41:00 CDT, Height, 95.455, kg, 05/25/20 13:41:00 CDT, Weight primidone 2020-0 Yes 50 mg = 1 Mem oria 50 mg oral 8-25 tab, PO, l tablet 19:03: BID, # 180 Jessie nn 00 tab, 3 Refill(s), Pharmacy: [facility] #[id number], 149.86, cm, 05/25/20 13:41:00 CDT, Height, 95.455, kg, 05/25/20 13:41:00 CDT, Weight primidone 2020-0 Yes 50 mg = 1 Mem oria 50 mg oral 8-25 tab, PO, l tablet 19:03: BID, # 180 Jessie nn 00 tab, 3 Refill(s), Pharmacy: [facility] #[id number], 149.86, cm, 05/25/20 13:41:00 CDT, Height, 95.455, kg, 05/25/20 13:41:00 CDT, Weight primidone 2020-0 Yes 50 mg = 1 Mem oria 50 mg oral 8-25 tab, PO, l tablet 19:03: BID, # 180 Jessie nn 00 tab, 3 Refill(s), Pharmacy: [facility] #[id number], 149.86, cm, 05/25/20 13:41:00 CDT, Height, 95.455, kg, 05/25/20 13:41:00 CDT, Weight primidone 2020-0 Yes 50 mg = 1 Mem oria 50 mg oral 8-25 tab, PO, l tablet 19:03: BID, # 180 Jessie nn 00 tab, 3 Refill(s), Pharmacy: [facility] #[id number], 149.86, cm, 05/25/20 13:41:00 CDT, Height, 95.455, kg, 05/25/20 13:41:00 CDT, Weight primidone 2020-0 Yes 50 mg = 1 Mem oria 50 mg oral 8-25 tab, PO, l tablet 19:03: BID, # 180 Jessie nn 00 tab, 3 Refill(s), Pharmacy: [facility] #[id number], 149.86, cm, 05/25/20 13:41:00 CDT, Height, 95.455, kg, 05/25/20 13:41:00 CDT, Weight primidone 2020-0 Yes 50 mg = 1 Mem oria 50 mg oral 8-25 tab, PO, l tablet 19:03: BID, # 180 Jessie nn 00 tab, 3 Refill(s), Pharmacy: [facility] #[id number], 149.86, cm, 05/25/20 13:41:00 CDT, Height, 95.455, kg, 05/25/20 13:41:00 CDT, Weight primidone 2020-0 Yes 50 mg = 1 Mem oria 50 mg oral 8-25 tab, PO, l tablet 19:03: BID, # 180 Jessie nn 00 tab, 3 Refill(s), Pharmacy: [facility] #[id number], 149.86, cm, 05/25/20 13:41:00 CDT, Height, 95.455, kg, 05/25/20 13:41:00 CDT, Weight primidone 2020-0 Yes 50 mg = 1 Mem oria 50 mg oral 8-25 tab, PO, l tablet 19:03: BID, # 180 Jessie nn 00 tab, 3 Refill(s), Pharmacy: [facility] #[id number], 149.86, cm, 05/25/20 13:41:00 CDT, Height, 95.455, kg, 05/25/20 13:41:00 CDT, Weight primidone 2020-0 Yes 50 mg = 1 Mem oria 50 mg oral 8-25 tab, PO, l tablet 19:03: BID, # 180 Jessie nn 00 tab, 3 Refill(s), Pharmacy: [facility] #[id number], 149.86, cm, 05/25/20 13:41:00 CDT, Height, 95.455, kg, 05/25/20 13:41:00 CDT, Weight primidone 2020-0 Yes 50 mg = 1 Mem oria 50 mg oral 8-25 tab, PO, l tablet 19:03: BID, # 180 Jessie nn 00 tab, 3 Refill(s), Pharmacy: [facility] #[id number], 149.86, cm, 05/25/20 13:41:00 CDT, Height, 95.455, kg, 05/25/20 13:41:00 CDT, Weight primidone 2020-0 No 50 mg = 1 Mem oria 50 mg oral 6-25 tab, PO, l tablet 13:48: Bedtime, # Jessie nn 00 90 tab, 3 Refill(s), Pharmacy: [facility] #[id number], 149.86, cm, 03/24/20 9:12:00 CDT, Height, 90.909, kg, 03/24/20 9:12:00 CDT, Weight primidone 2020-0 No 50 mg = 1 Mem oria 50 mg oral 6-25 tab, PO, l tablet 13:48: Bedtime, # Jessie nn 00 90 tab, 3 Refill(s), Pharmacy: [facility] #[id number], 149.86, cm, 03/24/20 9:12:00 CDT, Height, 90.909, kg, 03/24/20 9:12:00 CDT, Weight primidone 2020-0 No 50 mg = 1 Mem oria 50 mg oral 6-25 tab, PO, l tablet 13:48: Bedtime, # Jessie nn 00 90 tab, 3 Refill(s), [facility]acy: [id number], 149.86, cm, 03/24/20 9:12:00 CDT, Height, 90.909, kg, 03/24/20 9:12:00 CDT, Weight primidone 2020-0 No 50 mg = 1 Mem oria 50 mg oral 6-25 tab, PO, l tablet 13:48: Bedtime, # Jessie nn 00 90 tab, 3 Refill(s), [facility]acy: [id number], 149.86, cm, 03/24/20 9:12:00 CDT, Height, 90.909, kg, 03/24/20 9:12:00 CDT, Weight primidone 2020-0 No 50 mg = 1 Mem oria 50 mg oral 6-25 tab, PO, l tablet 13:48: Bedtime, # Jessie nn 00 90 tab, 3 Refill(s), [facility]acy: [id number], 149.86, cm, 03/24/20 9:12:00 CDT, [...] nn 00 90 tab, 3 Refill(s), Pharmacy: [facility] #[id number], 149.86, cm, 03/24/20 9:12:00 CDT, Height, 90.909, kg, 03/24/20 9:12:00 CDT, Weight primidone 2020-0 No 50 mg = 1 Mem oria 50 mg oral 6-25 tab, PO, l tablet 13:48: Bedtime, # Jessie nn 00 90 tab, 3 Refill(s), [facility]acy: [id number], 149.86, cm, 03/24/20 9:12:00 CDT, Height, 90.909, kg, 03/24/20 9:12:00 CDT, Weight primidone 2020-0 No 50 mg = 1 Mem oria 50 mg oral 6-25 tab, PO, l tablet 13:48: Bedtime, # Jessie nn 00 90 tab, 3 Refill(s), [facility]: [id number], 149.86, cm, 03/24/20 9:12:00 CDT, Height, 90.909, kg, 03/24/20 9:12:00 CDT, Weight primidone 2020-0 No 50 mg = 1 Mem oria 50 mg oral 6-25 tab, PO, l tablet 13:48: Bedtime, # Jessie nn 00 90 tab, 3 Refill(s), [facility]: [id number], 149.86, cm, 03/24/20 9:12:00 CDT, Height, 90.909, kg, 03/24/20 9:12:00 CDT, Weight primidone 2020-0 No 50 mg = 1 Mem oria 50 mg oral 6-25 tab, PO, l tablet 13:48: Bedtime, # Jessie nn 00 90 tab, 3 Refill(s), [facility]: [id number], 149.86, cm, 03/24/20 9:12:00 CDT, Height, 90.909, kg, 03/24/20 9:12:00 CDT, Weight primidone 2020-0 No 50 mg = 1 Mem oria 50 mg oral 6-25 tab, PO, l tablet 13:48: Bedtime, # Jessie nn 00 90 tab, 3 Refill(s), [facility]: [id number], 149.86, cm, 03/24/20 9:12:00 CDT, Height, 90.909, kg, 03/24/20 9:12:00 CDT, Weight primidone 2020-0 No 50 mg = 1 Mem oria 50 mg oral 6-25 tab, PO, l tablet 13:48: Bedtime, # Jessie nn 00 90 tab, 3 Refill(s), Pharmacy: [facility] #[id number], 149.86, cm, 03/24/20 9:12:00 CDT, Height, 90.909, kg, 03/24/20 9:12:00 CDT, Weight donepezil 2020-0 Yes 10 mg = 1 Mem [facility]ria 10 mg oral 6-24 tab, PO, l tablet 14:32: Daily, # [place] 00 30 tab, 3 Refill(s), [facility]acy: [facility] #[id number], 149.86, cm, 03/24/20 9:12:00 CDT, Height, 90.909, kg, 03/24/20 9:12:00 CDT, Weight primidone 2020-0 No 50 mg = 1 Mem oria 50 mg oral 6-24 tab, PO, l tablet 14:32: Bedtime, X Jessie nn 00 30 day, # 30 tab, 3 Refill(s), Pharmacy: [id number], 149.86, cm, 03/24/20 9:12:00 CDT, Height, 90.909, kg, 03/24/20 9:12:00 CDT, Weight donepezil 2020-0 Yes 10 mg = 1 Mem oria 10 mg oral 6-24 tab, PO, l tablet 14:32: Daily, # [place] 00 30 tab, 3 Refill(s), Pharmacy: [facility] #[id number], 149.86, cm, 03/24/20 9:12:00 CDT, Height, 90.909, kg, 03/24/20 9:12:00 CDT, Weight primidone 2020-0 No 50 mg = 1 Mem oria 50 mg oral 6-24 tab, PO, l tablet 14:32: Bedtime, X Jessie nn 30 day, # 30 tab, 3 Refill(s), Pharmacy: [id number], 149.86, cm, 03/24/20 9:12:00 CDT, Height, 90.909, kg, 03/24/20 9:12:00 CDT, Weight donepezil 2020-0 Yes 10 mg = 1 Mem oria 10 mg oral 6-24 tab, PO, l tablet 14:32: Daily, # Raul 00 30 tab, 3 Refill(s), [facility]: [id number], 149.86, cm, 03/24/20 9:12:00 CDT, Height, 90.909, kg, 03/24/20 9:12:00 CDT, Weight primidone 2020-0 No 50 mg = 1 Mem oria 50 mg oral 6-24 tab, PO, l tablet 14:32: Bedtime, X Jessie nn 30 day, # 30 tab, 3 Refill(s), [facility]: [id number], 149.86, cm, 03/24/20 9:12:00 CDT, Height, 90.909, kg, 03/24/20 9:12:00 CDT, Weight donepezil 2020-0 Yes 10 mg = 1 Mem oria 10 mg oral 6-24 tab, PO, l tablet 14:32: Daily, # [place] 00 30 tab, 3 Refill(s), [facility]: [id number], 149.86, cm, 03/24/20 9:12:00 CDT, Height, 90.909, kg, 03/24/20 9:12:00 CDT, Weight primidone 2020-0 No 50 mg = 1 Mem oria 50 mg oral 6-24 tab, PO, l tablet 14:32: Bedtime, X Jessie nn 30 day, # 30 tab, 3 Refill(s), [facility]acy: [facility] #[id number], 149.86, cm, 03/24/20 9:12:00 CDT, Height, 90.909, kg, 03/24/20 9:12:00 CDT, Weight donepezil 2020-0 Yes 10 mg = 1 Mem oria 10 mg oral 6-24 tab, PO, l tablet 14:32: Daily, # [place] 00 30 tab, 3 Refill(s), [facility]acy: [facility] #[id number], 149.86, cm, 03/24/20 9:12:00 CDT, Height, 90.909, kg, 03/24/20 9:12:00 CDT, Weight primidone 2020-0 No 50 mg = 1 Mem oria 50 mg oral 6-24 tab, PO, l tablet 14:32: Bedtime, X Jessie nn 30 day, # 30 tab, 3 Refill(s), [facility]acy: [facility] #[id number], 149.86, cm, 03/24/20 9:12:00 CDT, Height, 90.909, kg, 03/24/20 9:12:00 CDT, Weight donepezil 2020-0 Yes 10 mg = 1 Mem oria 10 mg oral 6-24 tab, PO, l tablet 14:32: Daily, # [place] 00 30 tab, 3 Refill(s), [facility]acy: [facility] #[id number], 149.86, cm, 03/24/20 9:12:00 CDT, Height, 90.909, kg, 03/24/20 9:12:00 CDT, Weight primidone 2020-0 No 50 mg = 1 Mem oria 50 mg oral 6-24 tab, PO, l tablet 14:32: Bedtime, X Jessie nn 30 day, # 30 tab, 3 Refill(s), [facility]acy: [facility] #[id number], 149.86, cm, 03/24/20 9:12:00 CDT, Height, 90.909, kg, 03/24/20 9:12:00 CDT, Weight donepezil 2020-0 Yes 10 mg = 1 Mem oria 10 mg oral 6-24 tab, PO, l tablet 14:32: Daily, # [place] 00 30 tab, 3 Refill(s), [facility]acy: [facility] #[id number], 149.86, cm, 03/24/20 9:12:00 CDT, Height, 90.909, kg, 03/24/20 9:12:00 CDT, Weight primidone 2020-0 No 50 mg = 1 Mem oria 50 mg oral 6-24 tab, PO, l tablet 14:32: Bedtime, X Jessie nn 30 day, # 30 tab, 3 Refill(s), Pharmacy: [facility] #[id number], 149.86, cm, 03/24/20 9:12:00 CDT, Height, 90.909, kg, 03/24/20 9:12:00 CDT, Weight donepezil 2020-0 Yes 10 mg = 1 Mem oria 10 mg oral 6-24 tab, PO, l tablet 14:32: Daily, # [place] 00 30 tab, 3 Refill(s), Pharmacy: [facility] #[id number], 149.86, cm, 03/24/20 9:12:00 CDT, Height, 90.909, kg, 03/24/20 9:12:00 CDT, Weight primidone 2020-0 No 50 mg = 1 Mem oria 50 mg oral 6-24 tab, PO, l tablet 14:32: Bedtime, X Jessie nn 30 day, # 30 tab, 3 Refill(s), Pharmacy: [facility] #[id number], 149.86, cm, 03/24/20 9:12:00 CDT, Height, 90.909, kg, 03/24/20 9:12:00 CDT, Weight donepezil 2020-0 Yes 10 mg = 1 Mem oria 10 mg oral 6-24 tab, PO, l tablet 14:32: Daily, # [place] 00 30 tab, 3 Refill(s), Pharmacy: [facility] #[id number], 149.86, cm, 03/24/20 9:12:00 CDT, Height, 90.909, kg, 03/24/20 9:12:00 CDT, Weight primidone 2020-0 No 50 mg = 1 Mem oria 50 mg oral 6-24 tab, PO, l tablet 14:32: Bedtime, X Jessie nn 30 day, # 30 tab, 3 Refill(s), Pharmacy: [facility] #[id number], 149.86, cm, 03/24/20 9:12:00 CDT, Height, 90.909, kg, 03/24/20 9:12:00 CDT, Weight donepezil 2020-0 Yes 10 mg = 1 Mem oria 10 mg oral 6-24 tab, PO, l tablet 14:32: Daily, # [place] 00 30 tab, 3 Refill(s), [id number], 149.86, cm, 03/24/20 9:12:00 CDT, Height, 90.909, kg, 03/24/20 9:12:00 CDT, Weight primidone 2020-0 No 50 mg = 1 Mem oria 50 mg oral 6-24 tab, PO, l tablet 14:32: Bedtime, X Jessie nn 30 day, # 30 tab, 3 Refill(s), Pharmacy: [facility] #[id number], 149.86, cm, 03/24/20 9:12:00 CDT, Height, 90.909, kg, 03/24/20 9:12:00 CDT, Weight donepezil 2020-0 Yes 10 mg = 1 Mem oria 10 mg oral 6-24 tab, PO, l tablet 14:32: Daily, # [place] 00 30 tab, 3 Refill(s), Pharmacy: [facility] #[id number], 149.86, cm, 03/24/20 9:12:00 CDT, Height, 90.909, kg, 03/24/20 9:12:00 CDT, Weight primidone 2020-0 No 50 mg = 1 Mem oria 50 mg oral 6-24 tab, PO, l tablet 14:32: Bedtime, X Jessie nn 30 day, # 30 tab, 3 Refill(s), Pharmacy: [facility] #[id number], 149.86, cm, 03/24/20 9:12:00 CDT, Height, 90.909, kg, 03/24/20 9:12:00 CDT, Weight donepezil 2020-0 Yes 10 mg = 1 Mem oria 10 mg oral 6-24 tab, PO, l tablet 14:32: Daily, # [place] 00 30 tab, 3 Refill(s), Pharmacy: [facility] #[id number], 149.86, cm, 03/24/20 9:12:00 CDT, Height, 90.909, kg, 03/24/20 9:12:00 CDT, Weight primidone 2020-0 No 50 mg = 1 Mem oria 50 mg oral 6-24 tab, PO, l tablet 14:32: Bedtime, X Jessie nn 30 day, # 30 tab, 3 Refill(s), [facility]acy: [facility] #[id number], 149.86, cm, 03/24/20 9:12:00 CDT, Height, 90.909, kg, 03/24/20 9:12:00 CDT, Weight donepezil 2020-0 Yes 10 mg = 1 Mem oria 10 mg oral 6-24 tab, PO, l tablet 14:32: Daily, # [place] 00 30 tab, 3 Refill(s), [facility]acy: [id number], 149.86, cm, 03/24/20 9:12:00 CDT, Height, 90.909, kg, 03/24/20 9:12:00 CDT, Weight primidone 2020-0 No 50 mg = 1 Mem oria 50 mg oral 6-24 tab, PO, l tablet 14:32: Bedtime, X Jessie nn 30 day, # 30 tab, 3 Refill(s), [facility]acy: [id number], 149.86, cm, 03/24/20 9:12:00 CDT, Height, 90.909, kg, 03/24/20 9:12:00 CDT, Weight donepezil 2020-0 Yes 10 mg = 1 Mem oria 10 mg oral 6-24 tab, PO, l tablet 14:32: Daily, # [place] 00 30 tab, 3 Refill(s), [facility]: [facility] #[id number], 149.86, cm, 03/24/20 9:12:00 CDT, Height, 90.909, kg, 03/24/20 9:12:00 CDT, Weight primidone 2020-0 No 50 mg = 1 Mem oria 50 mg oral 6-24 tab, PO, l tablet 14:32: Bedtime, X Jessie nn 30 day, # 30 tab, 3 Refill(s), [facility]acy: [facility] #[id number], 149.86, cm, 03/24/20 9:12:00 CDT, Height, 90.909, kg, 03/24/20 9:12:00 CDT, Weight donepezil 2020-0 Yes 10 mg = 1 Mem oria 10 mg oral 6-24 tab, PO, l tablet 14:32: Daily, # [place] 00 30 tab, 3 Refill(s), [facility]: [facility] #[id number], 149.86, cm, 03/24/20 9:12:00 CDT, Height, 90.909, kg, 03/24/20 9:12:00 CDT, Weight primidone 2020-0 No 50 mg = 1 Mem oria 50 mg oral 6-24 tab, PO, l tablet 14:32: Bedtime, X Jessie nn 30 day, # 30 tab, 3 Refill(s), [facility]: [facility] #[id number], 149.86, cm, 03/24/20 9:12:00 CDT, Height, 90.909, kg, 03/24/20 9:12:00 CDT, Weight donepezil 2020-0 Yes 10 mg = 1 Mem oria 10 mg oral 6-24 tab, PO, l tablet 14:32: Daily, # [place] 00 30 tab, 3 Refill(s), [facility]: [facility] #[id number], 149.86, cm, 03/24/20 9:12:00 CDT, Height, 90.909, kg, 03/24/20 9:12:00 CDT, Weight primidone 2020-0 No 50 mg = 1 Mem oria 50 mg oral 6-24 tab, PO, l tablet 14:32: Bedtime, X Jessie nn 30 day, # 30 tab, 3 Refill(s), [facility]: [facility] #[id number], 149.86, cm, 03/24/20 9:12:00 CDT, Height, 90.909, kg, 03/24/20 9:12:00 CDT, Weight donepezil 2020-0 Yes 10 mg = 1 Mem oria 10 mg oral 6-24 tab, PO, l tablet 14:32: Daily, # [place] 00 30 tab, 3 Refill(s), [facility]: [id number], 149.86, cm, 03/24/20 9:12:00 CDT, Height, 90.909, kg, 03/24/20 9:12:00 CDT, Weight primidone 2020-0 No 50 mg = 1 Mem oria 50 mg oral 6-24 tab, PO, l tablet 14:32: Bedtime, X Jessie nn day, # 30 tab, 3 Refill(s), [facility]: [id number], 149.86, cm, 03/24/20 9:12:00 CDT, Height, 90.909, kg, 03/24/20 9:12:00 CDT, Weight donepezil 2019-0 Yes 10 mg = 1 Mem oria 10 mg oral 6-24 tab, PO, l tablet 14:32: Daily, # [place] 00 30 tab, 3 Refill(s), [facility]: [id number], 149.86, cm, 03/24/20 9:12:00 CDT, Height, 90.909, kg, 03/24/20 9:12:00 CDT, Weight primidone 2019-0 No 50 mg = 1 Mem oria 50 mg oral 6-24 tab, PO, l tablet 14:32: Bedtime, X Jessie nn day, # 30 tab, 3 Refill(s), [facility]: [facility] #[id number], 149.86, cm, 03/24/20 9:12:00 CDT, Height, 90.909, kg, 03/24/20 9:12:00 CDT, Weight sucralfate 2020-0 Yes [id number] .[id number][in_ Apply 0.25 [facility], 5-21 us] Inches as ity of polymerized 00:00: directed 4 [place] 1 gram/10 00 (four) Medical mL Pste times Branch daily as needed for Pain (scale 1-3). sucralfate 2020-0 2020- No [id number] .[id number][in_ Apply 0.25 [facility] malate, 5-21 09-28 us] Inches as ity of polymerized 00:00: 00:00 directed 4 [place] 1 gram/10 00 :00 (four) Medical mL [...] 7-26 MISC, l 21:45: Daily, # 1 [place] 00 ea, 0 Refill(s) Walker 2019-0 Yes 1 ea, Memoria 7-26 MISC, l 21:45: Daily, # 1 [place] 00 ea, 0 Refill(s) Walker 2019-0 Yes 1 ea, Memoria 7-26 MISC, l 21:45: Daily, # 1 [place] 00 ea, 0 Refill(s) Walker 2019-0 Yes 1 ea, Memoria 7-26 MISC, l 21:45: Daily, # 1 [place] 00 ea, 0 Refill(s) Walker 2019-0 Yes 1 ea, Memoria 7-26 MISC, l 21:45: Daily, # 1 [place] 00 ea, 0 Refill(s) [place] 2019-0 Yes 1 ea, Memoria 7-26 MISC, l 21:45: Daily, # 1 [place] 00 ea, 0 Refill(s) Walker 2019-0 Yes 1 ea, Memoria 7-26 MISC, l 21:45: Daily, # 1 [place] 00 ea, 0 Refill(s) Walker 2019-0 Yes 1 ea, Memoria 7-26 MISC, l 21:45: Daily, # 1 [place] 00 ea, 0 Refill(s) [place] 2019-0 Yes 1 ea, Memoria 7-26 MISC, l 21:45: Daily, # 1 [place] 00 ea, 0 Refill(s) Walker 2019-0 Yes 1 ea, Memoria 7-26 MISC, l 21:45: Daily, # 1 [place] 00 ea, 0 Refill(s) [place] 2019-0 Yes 1 ea, Memoria 7-26 MISC, l 21:45: Daily, # 1 [place] 00 ea, 0 Refill(s) Walker 2019-0 Yes 1 ea, Memoria 7-26 MISC, l 21:45: Daily, # 1 [place] 00 ea, 0 Refill(s) Walker 2019-0 Yes 1 ea, Memoria 7-26 MISC, l 21:45: Daily, # 1 [place] 00 ea, 0 Refill(s) Walker 2019-0 Yes 1 ea, Memoria 7-26 MISC, l 21:45: Daily, # 1 [place] 00 ea, 0 Refill(s) [place] 2019-0 Yes 1 ea, Memoria 7-26 MISC, l 21:45: Daily, # 1 [place] 00 ea, 0 Refill(s) [place] 2018- Yes 1 ea, Memoria 7-26 MISC, l 21:45: Daily, # 1 [place] 00 ea, 0 Refill(s) Walker 2019-0 Yes 1 ea, Memoria 7-26 MISC, l 21:45: Daily, # 1 [place] 00 ea, 0 Refill(s) Adult 2019-0 Yes 81 mg = 1 Memoria Aspirin 81 6-21 tab, CHEW, l mg oral 20:18: Daily, # Ajay n tablet, 00 30 tab, 3 chewable Refill(s), [facility]: [facility] #[id number] Adult 2019 Yes 81 mg = 1 Memoria Aspirin 81 6-21 tab, CHEW, l mg oral 20:18: Daily, # Ajay n tablet, 00 30 tab, 3 chewable Refill(s), [facility]: [facility] #[id number] Adult 2019 Yes 81 mg = 1 Memoria Aspirin 81 6-21 tab, CHEW, l mg oral 20:18: Daily, # Ajay n tablet, 00 30 tab, 3 chewable Refill(s), [facility]acy: [facility] #[id number] Adult 2019 Yes 81 mg = 1 Memoria Aspirin 81 6-21 tab, CHEW, l mg oral 20:18: Daily, # Ajay n tablet, 00 30 tab, 3 chewable Refill(s), [facility]: [facility] #[id number] Adult 2019- Yes 81 mg = 1 Memoria Aspirin 81 6-21 tab, CHEW, l mg oral 20:18: Daily, # Ajay n tablet, 00 30 tab, 3 chewable Refill(s), [facility]acy: [facility] #[id number] Adult [id number] Yes 81 mg = 1 Memoria Aspirin 81 6-21 tab, CHEW, l mg oral 20:18: Daily, # Ajay n tablet, 00 30 tab, 3 chewable Refill(s), Pharmacy: [facility] #[id number] Adult [id number] Yes 81 mg = 1 Memoria Aspirin 81 6-21 tab, CHEW, l mg oral 20:18: Daily, # Ajay n tablet, 00 30 tab, 3 chewable Refill(s), [facility]: [facility] #[id number] Adult 2019-0 Yes 81 mg = 1 Memoria Aspirin 81 6-21 tab, CHEW, l mg oral 20:18: Daily, # Ajay n tablet, 00 30 tab, 3 chewable Refill(s), [id number] Adult 2019-0 Yes 81 mg = 1 Memoria Aspirin 81 6-21 tab, CHEW, l mg oral 20:18: Daily, # Ajay n tablet, 00 30 tab, 3 chewable Refill(s), [id number] Adult 2019-0 Yes 81 mg = 1 Memoria Aspirin 81 6-21 tab, CHEW, l mg oral 20:18: Daily, # Ajay n tablet, 00 30 tab, 3 chewable Refill(s), [id number] Adult [address] Yes 81 mg = 1 Memoria Aspirin 81 6-21 tab, CHEW, l mg oral 20:18: Daily, # Ajay n tablet, 00 30 tab, 3 chewable Refill(s), [id number] Adult [id number] Yes 81 mg = 1 Memoria Aspirin 81 6-21 tab, CHEW, l mg oral 20:18: Daily, # Ajay n tablet, 00 30 tab, 3 chewable Refill(s), [id number] Adult [id number] Yes 81 mg = 1 Memoria Aspirin 81 6-21 tab, CHEW, l mg oral 20:18: Daily, # Ajay n tablet, 00 30 tab, 3 chewable Refill(s), [id number] Adult 2019-0 Yes 81 mg = 1 Memoria Aspirin 81 6-21 tab, CHEW, l mg oral 20:18: Daily, # Ajay n tablet, 00 30 tab, 3 chewable Refill(s), Pharmacy: [facility] #[id number] Adult 2019-0 Yes 81 mg = 1 Memoria Aspirin 81 6-21 tab, CHEW, l mg oral 20:18: Daily, # Ajay n tablet, 00 30 tab, 3 chewable Refill(s), Pharmacy: [facility] #[id number] Adult 2019-0 Yes 81 mg = 1 Memoria Aspirin 81 6-21 tab, CHEW, l mg oral 20:18: Daily, # Ajay n tablet, 00 30 tab, 3 chewable Refill(s), Pharmacy: [facility] #[id number] Adult 2019-0 Yes 81 mg = 1 Memoria Aspirin 81 6-21 tab, CHEW, l mg oral 20:18: Daily, # Ajay n tablet, 00 30 tab, 3 chewable Refill(s), Pharmacy: [facility] #[id number] Adult 2019-0 Yes 81 mg = 1 Memoria Aspirin 81 6-21 tab, CHEW, l mg oral 20:18: Daily, # Ajay n tablet, 00 30 tab, 3 chewable Refill(s), Pharmacy: [facility] #[id number] levothyroxi 2019-0 Yes 125 Memori a [...] tab, PO, l tablet 20:06: Daily, # [place] 00 90 tab, 0 Refill(s) Atropine 2019-0 [...] tab, PO, l tablet 20:06: Daily, # [place] 00 30 tab, 0 Refill(s) metoprolol 2019-0 [...] tab, PO, l tablet 20:06: Daily, # [place] 00 90 tab, 0 Refill(s) Atropine 2019-0 [...] tab, PO, l tablet 20:06: BID, 0 [place] 00 Refill(s) lisinopril 2018- Yes 40 mg = 1 Me moria 40 mg oral 5-24 tab, PO, l tablet 20:06: Daily, # [place] 00 30 tab, 0 Refill(s) ProAir HFA 2018-0 Yes 1 - 2 Memori a 5-24 puffs, PO, l 20:06: Q4H, PRN [place] 00 Wheezing / cough / shortness of breath, # 1 ea, 0 Refill(s) donepezil 2019- Yes 10 mg = 1 Mem oria 10 mg oral 5-24 tab, PO, l tablet 20:06: Daily, # [place] 00 30 tab, 0 Refill(s) ProAir HFA 2018-0 Yes 1 - 2 Memori a 5-24 puffs, PO, l 20:06: Q4H, PRN [place] 00 Wheezing / cough / shortness of [...] tab, PO, l tablet 20:06: BID, 0 [place] 00 Refill(s) lisinopril 2019 Yes 40 mg = 1 Me moria 40 mg oral 5-24 tab, PO, l tablet 20:06: Daily, # [place] 00 30 tab, 0 Refill(s) donepezil 2019- Yes 10 mg = 1 Mem oria 10 mg oral 5-24 tab, PO, l tablet 20:06: Daily, # [place] 00 30 tab, 0 Refill(s) ProAir HFA 0 Yes 1 - 2 Memori a 5-24 puffs, PO, l 20:06: Q4H, PRN [place] 00 Wheezing / cough / shortness of [...] 5-24 puffs, PO, l 20:06: Q4H, PRN [place] 00 Wheezing / cough / shortness of [...] tab, PO, l tablet 20:06: Daily, # [place] 00 30 tab, 0 Refill(s) donepezil Yes [...] tab, PO, l tablet 20:06: Daily, # [place] 00 90 tab, 0 Refill(s) Atropine 2019-0 [...] tab, PO, l tablet 20:06: Daily, # [place] 00 30 tab, 0 Refill(s) donepezil Yes 10 mg = 1 Mem oria 10 mg oral 5-24 tab, PO, l tablet 20:06: Daily, # [place] 00 30 tab, 0 Refill(s) ProAir HFA [...] 00 30 tab, 0 release Refill(s) omeprazole 2019-0 Yes 40 mg = [...] tab, PO, l tablet 20:06: Daily, # [place] 00 90 tab, 0 Refill(s) Atropine 2019-0 [...] tab, PO, l tablet 20:06: BID, 0 [place] 00 Refill(s) lisinopril 2019-0 Yes 40 mg = 1 Me moria 40 mg oral 5-24 tab, PO, l tablet 20:06: Daily, # [place] 00 30 tab, 0 Refill(s) donepezil 2019-0 [...] tab, PO, l tablet 20:06: BID, 0 [place] 00 Refill(s) lisinopril 2019- Yes 40 mg = 1 Me moria 40 mg oral 5-24 tab, PO, l tablet 20:06: Daily, # [place] 00 30 tab, 0 Refill(s) donepezil Yes [...] tab, PO, l tablet 20:06: Daily, # [place] 00 90 tab, 0 Refill(s) Atropine 2019-0 Yes 2 tab, PO, Mem oria Sulfate 5-24 PRN, PRN l 0.025 MG / 20:06: for loose He aleksandra Diphenoxyla 00 stool, 0 te Refill(s) [...] tab, PO, l tablet 20:06: Daily, # [place] 00 30 tab, 0 Refill(s) donepezil 2018- [...] tab, PO, l tablet 20:06: Daily, # [place] 00 90 tab, 0 Refill(s) Atropine 2019-0 [...] tab, PO, l tablet 20:06: BID, 0 [place] 00 Refill(s) lisinopril Yes 40 mg = [...] tab, PO, l tablet 20:06: Daily, # [place] 00 90 tab, 0 Refill(s) Atropine 2019- [...] tab, PO, l tablet 20:06: Daily, # [place] 00 30 tab, 0 Refill(s) ProAir HFA [...] tab, PO, l tablet 20:06: Daily, # [place] 00 30 tab, 0 Refill(s) ProAir HFA Yes 1 - 2 Memori a 5-24 puffs, PO, l 20:06: Q4H, PRN [place] 00 Wheezing / cough / shortness of [...] tab, PO, l tablet 20:06: BID, 0 [place] 00 Refill(s) lisinopril 2019 Yes 40 mg = 1 Me moria 40 mg oral 5-24 tab, PO, l tablet 20:06: Daily, # [place] 00 30 tab, 0 Refill(s) donepezil Yes 10 mg = 1 Mem oria 10 mg oral 5-24 tab, PO, l tablet 20:06: Daily, # [place] 00 30 tab, 0 Refill(s) ProAir HFA Yes 1 - 2 Memori a 5-24 puffs, PO, l 20:06: Q4H, PRN [place] 00 Wheezing / cough / shortness of [...] tab, PO, l tablet 20:06: BID, 0 [place] 00 Refill(s) lisinopril 2019 Yes 40 mg = 1 Me moria 40 mg oral 5-24 tab, PO, l tablet 20:06: Daily, # [place] 00 30 tab, 0 Refill(s) donepezil Yes 10 mg = 1 Mem oria 10 mg oral 5-24 tab, PO, l tablet 20:06: Daily, # [place] 00 30 tab, 0 Refill(s) ProAir HFA Yes 1 - 2 Memori a 5-24 puffs, PO, l 20:06: Q4H, PRN [place] 00 Wheezing / cough / shortness of [...] tab, PO, l tablet 20:06: Daily, # [place] 00 30 tab, 0 Refill(s) ProAir HFA Yes 1 - 2 Memori a 5-24 puffs, PO, l 20:06: Q4H, PRN [place] 00 Wheezing / cough / shortness of [...] tab, PO, l tablet 20:06: Daily, # [place] 00 30 tab, 0 Refill(s) donepezil Yes 10 mg = 1 Mem oria 10 mg oral 5-24 tab, PO, l tablet 20:06: Daily, # [place] 00 30 tab, 0 Refill(s) ProAir HFA [...] tab, PO, l tablet 20:06: BID, 0 [place] 00 Refill(s) lisinopril 2019 Yes 40 mg [...] tablet 17:04: daily. [place] [facility] lovastatin 2017-0 Yes [...] mouth ity of XL (TOPROL 17:04: daily. [place] XL) 50 mg 36 Medical 24 hr [...] mg 17:04: daily. [place] tablet Medical Branch amLODIPine [address] Yes 5mg Take 5 mg Un martha (NORVASC) 5 3-07 by mouth ity of mg tablet 17:04: daily. [address] Branch lovastatin 2016-0 Yes 20mg Take 20 mg U nivers (MEVACOR) 3-07 by mouth ity of 20 mg 17:04: daily. [place] tablet 36 Medical Branch lisinopril 2017-0 Yes 40mg Take 40 mg U nivers (PRINIVIL,Z 3-07 by mouth ity of ESTRIL) 40 11:04: daily. [place] mg tablet 36 Medical Branch escitalopra 2017-0 Yes 20mg Take 20 mg Univers m oxalate 3-07 by mouth 2 ity of (LEXAPRO) 11:04: (two) [place] 20 mg 36 times Medical tablet daily. Branch gabapentin 2017-0 Yes 600mg Take 600 Un martha (NEURONTIN) 3-07 mg by ity of 300 mg 11:04: mouth 2 [place] capsule 36 (two) Medical times [place] daily. omeprazole 2017-0 Yes 40mg Take 40 mg U nivers (PRILOSEC) 3-07 by mouth ity o f 40 mg 11:04: daily. [place] capsule 36 Medical Branch metoprolol 2017-0 Yes 50mg Take 50 mg U nivers succinate 3-07 by mouth ity of XL (TOPROL 11:04: daily. [place] XL) 50 mg 36 Medical 24 hr [...] mouth ity of mg tablet 11:04: daily. [place] [address] Medical Branch lovastatin 2017-0 Yes 20mg Take [...] mouth ity of XL (TOPROL 11:04: daily. [place] XL) 50 mg 36 Medical 24 hr [...] mouth ity of 10 mg 11:04: daily. [facility] 36 Medical Branch amLODIPine 0 Yes 5mg Take 5 mg Un martha (NORVASC) 5 3-07 by mouth ity of mg tablet 11:04: daily. [place] [address] Medical Branch lovastatin Yes 20mg Take 20 mg U nivers (MEVACOR) 3-07 by mouth ity of 20 mg 11:04: daily. [facility] 36 Medical Branch Primidone Primidone No Primidone Potassium Potassium No [...] % Sodium 1 % Sodium 1 % Breo Breo No Breo Devoted Ellipta 200 Ellipta 200 Ellipta Medical mcg-25 mcg-25 200 mcg-25 Group mcg/dose mcg/dose mcg/dose powder for powder for powder for inhalation inhalation inhalation TAKE 1 PUFF TAKE 1 PUFF TAKE 1 BY MOUTH BY MOUTH PUFF BY EVERY DAY EVERY DAY MOUTH EVERY DAY rOPINIRole rOPINIRole No [...] A DAY A DAY TWICE A DAY Mupirocin Mupirocin No Mupirocin [...] (XL) HCl ER (XL) HCl ER (XL) carvedilol carvedilol No carvedilol Devoted 6.25 mg [...] 40 MG 40 MG t} 40 MG donepezil donepezil No donepezil Devoted 10 [...] Levothyrox ne Sodium ne Sodium ine Sodium escitalopra escitalopra No escitalopr Devoted m 20 mg m 20 mg am 20 mg Medic al tablet TAKE tablet TAKE tablet Group 1 TABLET BY 1 TABLET BY TAKE 1 MOUTH TWICE MOUTH TWICE TABLET BY A DAY A DAY MOUTH TWICE A DAY rOPINIRole rOPINIRole No 1{table BID rOPINIRole [...] Primidone No Primidone Gabapentin Gabapentin No Gabapentin famotidine famotidine No [...] thoprim thoprim methoprim Lomotil Lomotil No Lomotil gabapentin gabapentin No gabapentin Devoted 300 mg [...] HCl 2 MG Gabapentin Gabapentin No Gabapentin ipratropium ipratropium No ipratropiu Devoted bromide 21 [...] TABLET BY DAY DAY MOUTH EVERY DAY Albuterol [...] Potassium Chloride ER Chloride ER Chloride ER lisinopril lisinopril No 1 Q1D lisinopril Devoted 40 mg 40 mg 40 mg Medical tablet Take tablet Take tablet Group 1 tablet 1 tablet Take 1 every day every day tablet by oral by oral every day route. route. by oral route. Trelegy Trelegy No Trelegy Ellipta Ellipta Ellipta [...] HCl n HCl Furosemide Furosemide No Furosemide metoprolol metoprolol No metoprolol Devoted succinate succinate succinate Medical 50 mg daily 50 mg daily 50 mg Group daily rOPINIRole rOPINIRole No 1{table BID rOPINIRole HCl [...] Sodium le Sodium Carvedilol Carvedilol No Carvedilol potassium potassium No potassium Devoted chloride ER chloride ER chloride Medical 10 mEq 10 mEq ER 10 mEq Group capsule,ext capsule,ext capsule,ex ended ended tended release release release TAKE 1 TAKE 1 TAKE 1 CAPSULE BY CAPSULE BY CAPSULE BY MOUTH EVERY MOUTH EVERY MOUTH DAY DAY EVERY DAY Omeprazole Omeprazole No QD Omeprazole [...] Flublok Quadrivalen Quadrivalen Quadrivale t t nt primidone primidone No primidone Devoted 50 mg 50 mg 50 mg Medical tablet TAKE tablet TAKE tablet Group 1 TABLET BY 1 TABLET BY TAKE 1 MOUTH MOUTH TABLET BY EVERYDAY AT EVERYDAY AT MOUTH BEDTIME BEDTIME EVERYDAY AT BEDTIME Clindamycin Clindamycin No Clindamyci HCl HCl n [...] Ferrous Ferrous No Ferrous Sulfate Sulfate Sulfate ropinirole ropinirole No ropinirole Devoted 2 mg [...] Ferrous Ferrous No Ferrous Sulfate Sulfate Sulfate spironolact spironolact No spironolac Devoted one 25 mg one 25 mg tone 25 mg Medical tablet TAKE tablet TAKE tablet Group 1 TABLET BY 1 TABLET BY TAKE 1 MOUTH EVERY MOUTH EVERY TABLET BY DAY DAY MOUTH EVERY DAY NIFEdipine NIFEdipine No 1{table QD NIFEdipine ER [...] Albuterol Sulfate HFA Sulfate HFA Sulfate HFA topiramate topiramate No topiramate Devoted 25 mg 25 mg 25 mg Medical tablet TAKE tablet TAKE tablet Group 1 TABLET BY 1 TABLET BY TAKE 1 MOUTH AT MOUTH AT TABLET BY BEDTIME BEDTIME MOUTH AT BEDTIME Acetaminoph Acetaminoph No Acetaminop en-Codeine en-Codeine hen-Codein [...] Fluocinonid Fluocinonid No Fluocinoni e e de Trelegy Trelegy No Trelegy Devote d Ellipta 100 Ellipta 100 Ellipta Medical mcg-62.5 mcg-62.5 100 Group mcg-25 mcg mcg-25 mcg mcg-62.5 powder for powder for mcg-25 mcg inhalation inhalation powder for INHALE 1 INHALE 1 inhalation PUFF BY PUFF BY INHALE 1 MOUTH EVERY MOUTH EVERY PUFF BY DAY DAY MOUTH EVERY DAY traMADol [...] 5 t} Besylate 5 MG MG MG Vital Signs Vital Name Observation Time Observation Value Comments Source height 2022-11-13 10:00:00 59 [in_i] [facility] weight 2022-11-13 10:00:00 188 [lb_av] [facility] temperature 2022-11-13 10:00:00 97.9 [degF] [facility] bmi 2022-11-13 10:00:00 37.97 kg/m2 [facility] blood pressure 2022-11-13 10:00:00 114 mm[Hg] [facility] systolic [facility] blood pressure 2022-11-13 10:00:00 74 mm[Hg] [facility] - diastolic [facility] Systolic blood 2022-08-05 20:00:00 122 mm[Hg] [facility] Diastolic blood 2022-08-05 20:00:00 77 mm[Hg] [facility] Heart rate 2022-08-05 20:00:00 50 /min [facility] Respiratory rate 2022-08-05 20:00:00 18 /min [facility] Oxygen saturation in 2022-08-05 20:00:00 94 /min [facility] blood by [facility] [facility] Body temperature 2022-08-05 17:24:00 36 Trace[facility] Body height 2022-08-05 17:24:00 149.9 cm [facility] Body weight 2022-08-05 17:24:00 83.915 kg [facility] BMI 2022-08-05 17:24:00 37.37 kg/m2 [facility] height 2022-07-27 13:15:00 59 [in_i] [facility] weight 2022-07-27 13:15:00 188.2 [lb_av] [facility] temperature 2022-07-27 13:15:00 97.6 [degF] [facility] bmi 2022-07-27 13:15:00 38.01 kg/m2 [facility] blood pressure 2022-07-27 13:15:00 125 mm[Hg] [facility] blood pressure 2022-07-27 13:15:00 82 mm[Hg] [facility] height 2022-06-15 13:30:00 59 [in_i] [facility] weight 2022-06-15 13:30:00 193 [lb_av] [facility] temperature 2022-06-15 13:30:00 98.1 [degF] Common [facility] bmi 2022-06-15 13:30:00 38.98 kg/m2 Common S [facility] blood pressure 2022-06-15 13:30:00 128 mm[Hg] [facility] blood pressure 2022-06-15 13:30:00 76 mm[Hg] [facility] height 2021-10-17 14:30:00 59 [in_i] [facility] weight 2021-10-17 14:30:00 220 [lb_av] [facility] temperature 2021-10-17 14:30:00 97.9 [degF] [facility] bmi 2021-10-17 14:30:00 44.43 kg/m2 [facility] blood pressure 2021-10-17 14:30:00 126 mm[Hg] [facility] blood pressure 2021-10-17 14:30:00 74 mm[Hg] [facility] Systolic blood 2020-06-28 19:30:00 180 mm[Hg] Univer sity [facility] Diastolic blood 2020-06-28 19:30:00 82 mm[facility]Hg] [facility] 2020-06-28 19:30:00 61 /min [facility] Respiratory rate 2020-06-28 19:13:00 17 /min Univ [facility] Oxygen saturation in 2020-06-28 19:13:00 96 /min [facility] Arterial blood by [facility] Pulse oximetry Branch Body temperature 2020-06-28 16:54:00 36.33 Tracee [facility] Body weight 2020-06-28 16:54:00 95.255 kg [facility] BMI 2020-06-28 16:54:00 42.41 kg/m2 [facility] Systolic blood 2020-06-28 19:30:00 180 mm[Hg] Univer sity of pressure [facility] Diastolic blood 2020-06-28 19:30:00 82 mm[Hg] Unive rsity of pressure [facility] Heart rate 2020-06-28 19:30:00 61 /min [facility] Respiratory rate 2020-06-28 19:13:00 17 /min [facility] Oxygen saturation in 2020-06-28 19:13:00 96 /min [facility] of Arterial blood by [facility] Pulse oximetry Branch Body temperature 2020-06-28 16:54:00 36.33 Tracee Univ [facility] Body weight 2020-06-28 16:54:00 95.255 kg [facility] BMI 2020-06-28 16:54:00 42.41 kg/m2 [facility] Systolic blood 2020-02-19 19:23:00 160 mm[Hg] Univer sity of pressure [facility] Diastolic blood 2020-02-19 19:23:00 84 mm[Hg] Unive rsity of pressure [facility] Heart rate 2020-02-19 19:23:00 63 /min [facility] Body temperature 2020-02-19 19:23:00 36.39 Tracee [facility] Respiratory rate 2020-02-19 19:23:00 15 /min [facility] Body height 2020-02-19 19:23:00 149.9 cm [facility] Body weight 2020-02-19 19:23:00 99.791 kg [facility] BMI 2020-02-19 19:23:00 44.43 kg/m2 [facility] Oxygen saturation in 2020-02-19 19:23:00 96 /min [facility] of Arterial blood by [facility] Pulse oximetry Branch Systolic blood 2020-02-19 19:23:00 160 mm[Hg] Univer sity of pressure [facility] Diastolic blood 2020-02-19 19:23:00 84 mm[Hg] Unive rsity of pressure [facility] Heart rate 2020-02-19 19:23:00 63 /min [facility] Body temperature 2020-02-19 19:23:00 36.39 Tracee [facility] Respiratory rate 2020-02-19 19:23:00 15 /min [facility] Body height 2020-02-19 19:23:00 149.9 cm [facility] Body weight 2020-02-19 19:23:00 99.791 kg [facility] BMI 2020-02-19 19:23:00 44.43 kg/m2 Universi ty of [facility] Oxygen saturation in 2020-02-19 19:23:00 96 /min University of Arterial blood by [facility] Pulse oximetry Branch Systolic blood 2019-12-10 04:00:00 202 mm[Hg] Univer sity of pressure [facility] Diastolic blood 2019-12-10 04:00:00 92 mm[Hg] Unive rsity of pressure [facility] Heart rate 2019-12-10 04:00:00 75 /min [facility] Respiratory rate 2019-12-10 04:00:00 18 /min Univ [facility] Oxygen saturation in 2019-12-10 04:00:00 98 /min University of Arterial blood by [facility] Pulse oximetry Branch Body temperature 2019-12-10 02:51:13 36.39 Tracee [facility] Body height 2019-12-10 02:28:00 162.6 cm [facility] Body weight 2019-12-10 02:28:00 104.327 kg [facility] BMI 2019-12-10 02:28:00 39.48 kg/m2 [facility] Systolic blood 2019-12-10 04:00:00 202 mm[Hg] Univer sity of pressure [facility] Diastolic blood 2019-12-10 04:00:00 92 mm[Hg] Unive rsity of pressure [facility] Heart rate 2019-12-10 04:00:00 75 /min [facility] Respiratory rate 2019-12-10 04:00:00 18 /min Univ [facility] Oxygen saturation in 2019-12-10 04:00:00 98 /min University of Arterial blood by [facility] Pulse oximetry Branch Body temperature 2019-12-10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 Test Item Value Reference Range Interpretation Comments BUN (test code = BUN) 21 7-22 [facility]2023-10-15 13:03:00 Test Item Value Reference Range Interpretation Comments Creatinine Lvl (test code = Creatinine 1.62 0.50-1.40 Lvl) [facility]2023-10-15 13:03:00 Test Item Value Reference Range Interpretation Comments Sodium Lvl (test code = Sodium Lvl) 139 135-145 [facility]2023-10-15 13:03:00 Test Item Value Reference Range Interpretation Comments Potassium Lvl (test code = Potassium 3.8 3.5-5.1 Lvl) [facility]2023-10-15 13:03:00 Test Item Value Reference Range Interpretation Comments Chloride Lvl (test code = Chloride Lvl) 103 95-109 [facility]2023-10-15 13:03:00 Test Item Value Reference Range Interpretation Comments CO2 (test code = CO2) 30 24-32 [facility]2023-10-15 13:03:00 Test Item Value Reference Range Interpretation Comments Calcium Lvl (test code = Calcium Lvl) 8.2 8.5-10.5 [facility]2023-10-15 13:03:00 Test Item Value Reference Range Interpretation Comments AGAP (test code = AGAP) 9.8 10.0-20.0 [facility]2023-10-15 13:03:00 Test Item Value Reference Range Interpretation Comments eGFR (test code = eGFR) 32 [facility]IegmdwyXFORLTJIAK8989-90-93 13:03:00 Test Item Value Reference Range Interpretation Comments WBC (test code = WBC) 7.2 3.7-10.4 [facility]UcruxzpYMOYPKBQNZ2713-48-84 13:03:00 Test Item Value Reference Range Interpretation Comments RBC (test code = RBC) 3.21 4.20-5.40 [facility] HospitalWiofdreZVFWXAQWGS0065-20-52 13:03:00 Test Item Value Reference Range Interpretation Comments Hgb (test code = Hgb) 8.8 12.0-16.0 [facility] HospitalPeljmzbZUHOWWEJBO0482-26-67 13:03:00 Test Item Value Reference Range Interpretation Comments Hct (test code = Hct) 26.8 36.0-48.0 [facility] HospitalTlyhvlrYPMIVFXSIA5510-86-24 13:03:00 Test Item Value Reference Range Interpretation Comments MCV (test code = MCV) 83.5 80.0-98.0 [facility] HospitalNmzhjipWJNOAAUBPB3187-75-68 13:03:00 Test Item Value Reference Range Interpretation Comments MCH (test code = MCH) 27.5 pg 27.0-31.0 [facility] HospitalJnuokvbCOVDECIBTW9126-42-31 13:03:00 Test Item Value Reference Range Interpretation Comments MCHC (test code = MCHC) 32.9 32.0-36.0 [facility] HospitalKuojgyoXKEXOJYCJH3377-41-89 13:03:00 Test Item Value Reference Range Interpretation Comments RDW (test code = RDW) 15.7 11.5-14.5 [facility] HospitalSngitwiSJQKYDSQEL7240-32-15 13:03:00 Test Item Value Reference Range Interpretation Comments Platelet (test code = Platelet) 204 133-450 [facility] HospitalCgwjxeqUAJZDXHKPU1328-26-03 13:03:00 Test Item Value Reference Range Interpretation Comments MPV (test code = MPV) 7.9 7.4-10.4 [facility] CenterQlffwfsZODUIADSRN3706-32-77 13:03:00 Test Item Value Reference Range Interpretation Comments Vancomycin AUC (test code = Vancomycin 17.4 AUC) [facility]2023-10-15 13:03:00 Test Item Value Reference Range Interpretation Comments Glucose Lvl (test code = Glucose Lvl) 75 70-99 [facility]2023-10-15 13:03:00 Test Item Value Reference Range Interpretation Comments BUN (test code = BUN) 21 7-22 [place] 457353-10-15 13:03:00 Test Item Value Reference Range Interpretation Comments Creatinine Lvl (test code = Creatinine 1.62 0.50-1.40 Lvl) [place] 457353-10-15 13:03:00 Test Item Value Reference Range Interpretation Comments Sodium Lvl (test code = Sodium Lvl) 139 135-145 [place] 457353-10-15 13:03:00 Test Item Value Reference Range Interpretation Comments Potassium Lvl (test code = Potassium 3.8 3.5-5.1 Lvl) [place] 457353-10-15 13:03:00 Test Item Value Reference Range Interpretation Comments Chloride Lvl (test code = Chloride Lvl) 103 95-109 [place] 457353-10-15 13:03:00 Test Item Value Reference Range Interpretation Comments CO2 (test code = CO2) 30 24-32 [place] 457353-10-15 13:03:00 Test Item Value Reference Range Interpretation Comments Calcium Lvl (test code = Calcium Lvl) 8.2 8.5-10.5 [place] 457353-10-15 13:03:00 Test Item Value Reference Range Interpretation Comments AGAP (test code = AGAP) 9.8 10.0-20.0 [place] 457353-10-15 13:03:00 Test Item Value Reference Range Interpretation Comments eGFR (test code = eGFR) 32 [place] 963423-10-15 13:03:00 Test Item Value Reference Range Interpretation Comments WBC (test code = WBC) 7.2 3.7-10.4 [place] [address]-10-15 13:03:00 Test Item Value Reference Range Interpretation Comments RBC (test code = RBC) 3.21 4.20-5.40 [place] [address]-10-15 13:03:00 Test Item Value Reference Range Interpretation Comments Hgb (test code = Hgb) 8.8 12.0-16.0 [place] [address]-10-15 13:03:00 Test Item Value Reference Range Interpretation Comments Hct (test code = Hct) 26.8 36.0-48.0 [place] [address]-10-15 13:03:00 Test Item Value Reference Range Interpretation Comments MCV (test code = MCV) 83.5 80.0-98.0 [place] [address]-10-15 13:03:00 Test Item Value Reference Range Interpretation Comments MCH (test code = MCH) 27.5 pg 27.0-31.0 [place] [address]-10-15 13:03:00 Test Item Value Reference Range Interpretation Comments MCHC (test code = MCHC) 32.9 32.0-36.0 [place] [address]-10-15 13:03:00 Test Item Value Reference Range Interpretation Comments RDW (test code = RDW) 15.7 11.5-14.5 [place] [address]-10-15 13:03:00 Test Item Value Reference Range Interpretation Comments Platelet (test code = Platelet) 204 133-450 [place] 963423-10-15 13:03:00 Test Item Value Reference Range Interpretation Comments MPV (test code = MPV) 7.9 7.4-10.4 [facility] CenterBcyrjrqDAFVQZSJZE4859-93-03 13:03:00 Test Item Value Reference Range Interpretation Comments Vancomycin AUC (test code = Vancomycin 17.4 AUC) [facility]2023-10-14 12:23:00 Test Item Value Reference Range Interpretation Comments Glucose Lvl (test code = Glucose Lvl) 80 70-99 [facility]2023-10-14 12:23:00 Test Item Value Reference Range Interpretation Comments BUN (test code = BUN) 22 7-22 [place] 457353-10-14 12:23:00 Test Item Value Reference Range Interpretation Comments Creatinine Lvl (test code = Creatinine 1.73 0.50-1.40 Lvl) [place] 457353-10-14 12:23:00 Test Item Value Reference Range Interpretation Comments Sodium Lvl (test code = Sodium Lvl) 138 135-145 [facility]2023-10-14 12:23:00 Test Item Value Reference Range Interpretation Comments Potassium Lvl (test code = Potassium 3.4 3.5-5.1 Lvl) [place] 457353-10-14 12:23:00 Test Item Value Reference Range Interpretation Comments Chloride Lvl (test code = Chloride Lvl) 102 95-109 [place] [address]-10-14 12:23:00 Test Item Value Reference Range Interpretation Comments CO2 (test code = CO2) 33 24-32 [place] 457353-10-14 12:23:00 Test Item Value Reference Range Interpretation Comments Calcium Lvl (test code = Calcium Lvl) 8.3 8.5-10.5 [place] 457353-10-14 12:23:00 Test Item Value Reference Range Interpretation Comments AGAP (test code = AGAP) 6.4 10.0-20.0 [place] 457353-10-14 12:23:00 Test Item Value Reference Range Interpretation Comments eGFR (test code = eGFR) 30 [place] 963423-10-14 12:23:00 Test Item Value Reference Range Interpretation Comments WBC (test code = WBC) 7.5 3.7-10.4 [place] 963423-10-14 12:23:00 Test Item Value Reference Range Interpretation Comments RBC (test code = RBC) 3.19 4.20-5.40 [place] 963423-10-14 12:23:00 Test Item Value Reference Range Interpretation Comments Hgb (test code = Hgb) 8.8 12.0-16.0 [place] 963423-10-14 12:23:00 Test Item Value Reference Range Interpretation Comments Hct (test code = Hct) 27.1 36.0-48.0 [place] 963423-10-14 12:23:00 Test Item Value Reference Range Interpretation Comments MCV (test code = MCV) 85.0 80.0-98.0 [place] [address]-10-14 12:23:00 Test Item Value Reference Range Interpretation Comments MCH (test code = MCH) 27.8 pg 27.0-31.0 [place] [address]-10-14 12:23:00 Test Item Value Reference Range Interpretation Comments MCHC (test code = MCHC) 32.7 32.0-36.0 [place] [address]-10-14 12:23:00 Test Item Value Reference Range Interpretation Comments RDW (test code = RDW) 16.1 11.5-14.5 [place] 963423-10-14 12:23:00 Test Item Value Reference Range Interpretation Comments Platelet (test code = Platelet) 186 133-450 [place] 963423-10-14 12:23:00 Test Item Value Reference Range Interpretation Comments MPV (test code = MPV) 8.1 7.4-10.4 [place] 457353-10-14 12:23:00 Test Item Value Reference Range Interpretation Comments Glucose Lvl (test code = Glucose Lvl) 80 70-99 [place] 457353-10-14 12:23:00 Test Item Value Reference Range Interpretation Comments BUN (test code = BUN) 22 7-22 [place] [address]-10-14 12:23:00 Test Item Value Reference Range Interpretation Comments Creatinine Lvl (test code = Creatinine 1.73 0.50-1.40 Lvl) [place] 457353-10-14 12:23:00 Test Item Value Reference Range Interpretation Comments Sodium Lvl (test code = Sodium Lvl) 138 135-145 [place] 457353-10-14 12:23:00 Test Item Value Reference Range Interpretation Comments Potassium Lvl (test code = Potassium 3.4 3.5-5.1 Lvl) [place] 457353-10-14 12:23:00 Test Item Value Reference Range Interpretation Comments Chloride Lvl (test code = Chloride Lvl) 102 95-109 [place] 457353-10-14 12:23:00 Test Item Value Reference Range Interpretation Comments CO2 (test code = CO2) 33 24-32 [place] 457353-10-14 12:23:00 Test Item Value Reference Range Interpretation Comments Calcium Lvl (test code = Calcium Lvl) 8.3 8.5-10.5 [place] 457353-10-14 12:23:00 Test Item Value Reference Range Interpretation Comments AGAP (test code = AGAP) 6.4 10.0-20.0 [place] 457353-10-14 12:23:00 Test Item Value Reference Range Interpretation Comments eGFR (test code = eGFR) 30 [place] 963423-10-14 12:23:00 Test Item Value Reference Range Interpretation Comments WBC (test code = WBC) 7.5 3.7-10.4 [place] 963423-10-14 12:23:00 Test Item Value Reference Range Interpretation Comments RBC (test code = RBC) 3.19 4.20-5.40 [facility]IacbgdnPKTHDFMFAI6724-55-28 12:23:00 Test Item Value Reference Range Interpretation Comments Hgb (test code = Hgb) 8.8 12.0-16.0 [facility] HospitalWatfelpUDZHDNZLXP3140-88-27 12:23:00 Test Item Value Reference Range Interpretation Comments Hct (test code = Hct) 27.1 36.0-48.0 [facility] HospitalMjmlntkSFXCELTBBZ8210-58-67 12:23:00 Test Item Value Reference Range Interpretation Comments MCV (test code = MCV) 85.0 80.0-98.0 [facility] HospitalEnmtrvkPFZHWOKQMA0408-38-90 12:23:00 Test Item Value Reference Range Interpretation Comments MCH (test code = MCH) 27.8 pg 27.0-31.0 [facility] HospitalHuijaglAORNVCMCBC7962-96-61 12:23:00 Test Item Value Reference Range Interpretation Comments MCHC (test code = MCHC) 32.7 32.0-36.0 [facility] HospitalCnfwqxlXSGHESKGOF9406-04-59 12:23:00 Test Item Value Reference Range Interpretation Comments RDW (test code = RDW) 16.1 11.5-14.5 [facility] HospitalCyyjqlsKRAZWFUAXQ8518-17-52 12:23:00 Test Item Value Reference Range Interpretation Comments Platelet (test code = Platelet) 186 133-450 [facility] HospitalFqojkzqPQGJDPJXLN8776-19-84 12:23:00 Test Item Value Reference Range Interpretation Comments MPV (test code = MPV) 8.1 7.4-10.4 [facility]DehjdzcXDFKIH5708-[facility] 12:01:06 Test Item Value Reference Range Interpretation [...] seen. Epifanio Mejia MD On 07/13/2023 07:00:40; [id number] [facility] CenterUnduadiYDJTMA0500-37-96 12:01:06 Test Item Value Reference Range Interpretation [...] seen. Epifanio Mejia MD On 07/13/2023 07:00:40; [id number] [facility] [employer] [id number] 11:04:00 Test Item Value Reference Range Interpretation Comments Total Protein (test code = Total 6.2 6.4-8.4 Protein) [facility] [employer] [id number] 11:04:00 Test Item Value Reference Range Interpretation Comments Albumin Lvl (test code = Albumin Lvl) 2.5 3.5-5.0 [facility] [employer] [id number] 11:04:00 Test Item Value Reference Range Interpretation Comments ALT (test code = ALT) 14 <=65 [facility] [employer] [id number] 11:04:00 Test Item Value Reference Range Interpretation Comments AST (test code = AST) 14 <=37 [place] 457353-10-13 11:04:00 Test Item Value Reference Range Interpretation Comments Alk Phos (test code = Alk Phos) 96 39-136 [facility]2023-10-13 11:04:00 Test Item Value Reference Range Interpretation Comments Bili Total (test code = Bili Total) 0.4 0.2-1.3 [place] 457353-10-13 11:04:00 Test Item Value Reference Range Interpretation Comments B/C Ratio (test code = B/C Ratio) 12 1 6-25 [facility]2023-10-13 11:04:00 Test Item Value Reference Range Interpretation Comments Globulin (test code = Globulin) 3.7 2.7-4.2 [facility]2023-10-13 11:04:00 Test Item Value Reference Range Interpretation Comments A/G Ratio (test code = A/G Ratio) 0.7 1 0.7-1.6 [place] [address]-10-13 11:04:00 Test Item Value Reference Range Interpretation Comments Magnesium Lvl (test code = Magnesium 2.1 1.8-2.4 Lvl) [place] [address]-10-13 11:04:00 Test Item Value Reference Range Interpretation Comments Total Protein (test code = Total 6.2 6.4-8.4 Protein) [place] [address]-10-13 11:04:00 Test Item Value Reference Range Interpretation Comments Albumin Lvl (test code = Albumin Lvl) 2.5 3.5-5.0 [facility]HedcstkKTSULJYMN4293-14-78 11:04:00 Test Item Value Reference Range Interpretation Comments ALT (test code = ALT) 14 <=65 [place] [address]-10-13 11:04:00 Test Item Value Reference Range Interpretation Comments AST (test code = AST) 14 <=37 [place] [address]-10-13 11:04:00 Test Item Value Reference Range Interpretation Comments Alk Phos (test code = Alk Phos) 96 39-136 [place] 922233-10-13 11:04:00 Test Item Value Reference Range Interpretation Comments Bili Total (test code = Bili Total) 0.4 0.2-1.3 [facility] TexasVhozwteGKKSMFHVA8185-49-52 11:04:00 Test Item Value Reference Range Interpretation Comments B/C Ratio (test code = B/C Ratio) 12 1 6-25 [facility] TexasEqdrnsdYBHXOBTHU9858-98-85 11:04:00 Test Item Value Reference Range Interpretation Comments Globulin (test code = Globulin) 3.7 2.7-4.2 [facility] TexasMjdqqybYZELWMXAE8447-45-89 11:04:00 Test Item Value Reference Range Interpretation Comments A/G Ratio (test code = A/G Ratio) 0.7 1 0.7-1.6 [place] 963423-10-13 11:04:00 Test Item Value Reference Range Interpretation Comments Segs (test code = Segs) 78.8 45.0-75.0 [facility]JJYMSHTQVO0333-18-50 11:04:00 Test Item Value Reference Range Interpretation Comments Lymphocytes (test code = Lymphocytes) 6.9 20.0-40.0 [facility] HospitalWnzdwtbGUUGHYNMZX9566-14-07 11:04:00 Test Item Value Reference Range Interpretation Comments Monocytes (test code = Monocytes) 13.6 2.0-12.0 [facility] HospitalWiitekvKWAITRMREE2674-70-33 11:04:00 Test Item Value Reference Range Interpretation Comments Eosinophils (test code = Eosinophils) 0.3 <=4.0 [facility] HospitalFougxhuFEZTMHYFLI8076-98-22 11:04:00 Test Item Value Reference Range Interpretation Comments Basophils (test code = Basophils) 0.4 <=1.0 [facility] HospitalDctjrzfASWTRKZXVL8450-85-32 11:04:00 Test Item Value Reference Range Interpretation Comments Neutrophils # (test code = Neutrophils 8.2 1.5-8.1 #) [facility] HospitalMllwzgtRWPVATIMXB4583-15-06 11:04:00 Test Item Value Reference Range Interpretation Comments Lymphocytes # (test code = Lymphocytes 0.7 1.0-5.5 #) [facility] HospitalOooqhbzMSRMPGVMZF3331-34-16 11:04:00 Test Item Value Reference Range Interpretation Comments Monocytes # (test code = Monocytes #) 1.4 <=0.8 [facility]2023-10-13 11:04:00 Test Item Value Reference Range Interpretation Comments Total Protein (test code = Total 6.2 6.4-8.4 Protein) [facility]2023-10-13 11:04:00 Test Item Value Reference Range Interpretation Comments Albumin Lvl (test code = Albumin Lvl) 2.5 3.5-5.0 [place] 457353-10-13 11:04:00 Test Item Value Reference Range Interpretation Comments ALT (test code = ALT) 14 <=65 [place] 457353-10-13 11:04:00 Test Item Value Reference Range Interpretation Comments AST (test code = AST) 14 <=37 [place] 457353-10-13 11:04:00 Test Item Value Reference Range Interpretation Comments Alk Phos (test code = Alk Phos) 96 39-136 [facility]2023-10-13 11:04:00 Test Item Value Reference Range Interpretation Comments Bili Total (test code = Bili Total) 0.4 0.2-1.3 [place] 457353-10-13 11:04:00 Test Item Value Reference Range Interpretation Comments B/C Ratio (test code = B/C Ratio) 12 1 6-25 [place] [address]-10-13 11:04:00 Test Item Value Reference Range Interpretation Comments Globulin (test code = Globulin) 3.7 2.7-4.2 [facility]2023-10-13 11:04:00 Test Item Value Reference Range Interpretation Comments A/G Ratio (test code = A/G Ratio) 0.7 1 0.7-1.6 [place] 457353-10-13 11:04:00 Test Item Value Reference Range Interpretation Comments Magnesium Lvl (test code = Magnesium 2.1 1.8-2.4 Lvl) [facility]SovbwqqYQTCZJFNK9823-05-73 11:04:00 Test Item Value Reference Range Interpretation Comments Total Protein (test code = Total 6.2 6.4-8.4 Protein) [place] 922233-10-13 11:04:00 Test Item Value Reference Range Interpretation Comments Albumin Lvl (test code = Albumin Lvl) 2.5 3.5-5.0 [place] 922233-10-13 11:04:00 Test Item Value Reference Range Interpretation Comments ALT (test code = ALT) 14 <=65 [place] [address]-10-13 11:04:00 Test Item Value Reference Range Interpretation Comments AST (test code = AST) 14 <=37 [facility] TexasFqdotwaVNTEBMSBT4121-69-33 11:04:00 Test Item Value Reference Range Interpretation Comments Alk Phos (test code = Alk Phos) 96 39-136 [facility] TexasSaoyicoOADYZNZKU1972-19-98 11:04:00 Test Item Value Reference Range Interpretation Comments Bili Total (test code = Bili Total) 0.4 0.2-1.3 [facility] TexasRxhkpswTTYNAHQIF3927-31-10 11:04:00 Test Item Value Reference Range Interpretation Comments B/C Ratio (test code = B/C Ratio) 12 1 6-25 [facility] TexasUhjzdaxBNVHROTLU2277-20-66 11:04:00 Test Item Value Reference Range Interpretation Comments Globulin (test code = Globulin) 3.7 2.7-4.2 [facility] TexasPucpnkpTHDWPWLUN6796-35-85 11:04:00 Test Item Value Reference Range Interpretation Comments A/G Ratio (test code = A/G Ratio) 0.7 1 0.7-1.6 [facility] HospitalSpnzymoVRNMZHPXJF1947-46-16 11:04:00 Test Item Value Reference Range Interpretation Comments Segs (test code = Segs) 78.8 45.0-75.0 [facility] HospitalZopamodZYFZELWYCE7324-62-69 11:04:00 Test Item Value Reference Range Interpretation Comments Lymphocytes (test code = Lymphocytes) 6.9 20.0-40.0 [facility] HospitalNbftukjYWDGAWYFSE6256-08-62 11:04:00 Test Item Value Reference Range Interpretation Comments Monocytes (test code = Monocytes) 13.6 2.0-12.0 [facility] HospitalEesqlsdXXIAGGEHFD6124-15-16 11:04:00 Test Item Value Reference Range Interpretation Comments Eosinophils (test code = Eosinophils) 0.3 <=4.0 [facility] HospitalMvufygqEHFVVKOKOY7834-60-81 11:04:00 Test Item Value Reference Range Interpretation Comments Basophils (test code = Basophils) 0.4 <=1.0 [facility] HospitalIldjjiaWTCHLNDGEY8665-65-09 11:04:00 Test Item Value Reference Range Interpretation Comments Neutrophils # (test code = Neutrophils 8.2 1.5-8.1 #) [facility] HospitalYodlqdsEDQSOZBZNE9254-08-98 11:04:00 Test Item Value Reference Range Interpretation Comments Lymphocytes # (test code = Lymphocytes 0.7 1.0-5.5 #) [facility]BitgjjvIRBKHQJCBE6941-24-75 11:04:00 Test Item Value Reference Range Interpretation Comments Monocytes # (test code = Monocytes #) 1.4 <=0.8 [facility]aleannBACTERIAL - [id number] 23:41:00 Test Item Value Reference Range Interpretation Comments Source Strep (test code Urine *NA*(07/12/23 = Source Strep) 6:41 PM) [facility]aleannBACTERIAL - [id number] 23:41:00 Test Item Value Reference Range Interpretation Comments Strep pneumoniae Ag Negative (07/12/23 (test code = Strep 6:41 PM) pneumoniae Ag) [facility]aleannBACTERIAL - [id number] 23:41:00 Test Item Value Reference Range Interpretation Comments Source Strep (test code Urine *NA*(07/12/23 = Source Strep) 6:41 PM) [facility]BACT[facility] - [id number] 23:41:00 Test Item Value Reference Range Interpretation Comments Strep pneumoniae Ag Negative (07/12/23 (test code = Strep 6:41 PM) pneumoniae Ag) [facility]aleannGram Stain Eewdgp1867-44-73 19:18:00 Test Item Value Reference Range Interpretation Comments Gram Stain Report Gram Stain Performed By: (test code = Gram [facility] Stain Report) [facility]: Respiratory w/Gram Nxden6744-54-07 19:18:00 Test Item Value Reference Range Interpretation Comments Culture: Respiratory Many Moraxella w/Gram Stain (test code catarrhalis Beta = Culture: Respiratory Lactamase Positive w/Gram Stain) [facility]aleannMoraxella gbfmblcupge7771-13-85 19:18:00 Test Item Value Reference Range Interpretation Comments Moraxella catarrhalis Moraxella catarrhalis (test code = Moraxella catarrhalis) [facility]annGram Eymuc9306-97-01 19:18:00 Test Item Value Reference Range Interpretation Comments Gram Stain (test Less Than 25 Squamous code = Gram Stain) Epithelial Cells/Lpf Many WBC's Seen Moderate Gram Positive Rods Moderate Gram Positive Cocci In Chains Good Quality Specimen [facility]Gram Stain [id number] 19:18:00 Test Item Value Reference Range Interpretation Comments Gram Stain Report Gram Stain Performed By: (test code = Gram [facility] St[facility]) [facility]/Gram Ucejo2282-30-44 19:18:00 Test Item Value Reference Range Interpretation Comments Culture: Respiratory Many Moraxella w/Gram Stain (test code catarrhalis Beta = Culture: Respiratory Lactamase Positive w/Gram Stain) [facility] CenterMoraxella huvnuayukyi2413-52-98 19:18:00 Test Item Value Reference Range Interpretation Comments Moraxella catarrhalis Moraxella catarrhalis (test code = Moraxella catarrhalis) [facility]Gram Yyyyz3952-12-32 19:18:00 Test Item Value Reference Range Interpretation Comments Gram Stain (test Less Than 25 Squamous code = Gram Stain) Epithelial Cells/Lpf Many WBC's Seen Moderate Gram Positive Rods Moderate Gram Positive Cocci In Chains Good Quality Specimen [facility] CenterVzqfaceNHCBTM7512-01-85 11:58:16 Test Item Value Reference Range Interpretation [...] facet arthropathy.Hollis Wolff MD On 07/12/2023 06:57:09; [id number] [facility] CenterNfqyozgIPOBTL6042-67-78 11:58:16 Test Item Value Reference Range Interpretation [...] facet arthropathy.Hollis Wolff MD On 07/12/2023 06:57:09; [id number] [facility]2023-10-12 11:47:00 Test Item Value Reference Range Interpretation Comments Procalcitonin Lvl (test code = 0.11 <=0.10 Procalcitonin Lvl) [facility] TexasHlwsbwiJCPLSYZVG8064-66-62 11:47:00 Test Item Value Reference Range Interpretation Comments Procalcitonin Lvl (test code = 0.11 <=0.10 Procalcitonin Lvl) [facility] HospitalGrccapsMXWNNCOWEK2172-73-02 11:47:00 Test Item Value Reference Range Interpretation Comments D-Dimer (test code = D-Dimer) 2.37 [place] [address]-10-12 11:47:00 Test Item Value Reference Range Interpretation Comments D-Dimer (test code = D-Dimer) 2.37 [facility]rom[facility]AAUPMCNFX2327-74-86 11:47:00 Test Item Value Reference Range Interpretation Comments Coronavirus (COVID-19) Not Detected JONATHAN (test code = 10(07/12/23 6:47 AM) Coronavirus (COVID-19) JONATHAN) [place] [address]-10-12 11:47:00 Test Item Value Reference Range Interpretation Comments Coronavirus (COVID-19) Not Detected JONATHAN (test code = 8(07/12/23 6:47 AM) Coronavirus (COVID-19) JONATHAN) [facility]2023-10-12 11:47:00 Test Item Value Reference Range Interpretation Comments Procalcitonin Lvl (test code = 0.11 <=0.10 Procalcitonin Lvl) [place] 922233-10-12 11:47:00 Test Item Value Reference Range Interpretation Comments Procalcitonin Lvl (test code = 0.11 <=0.10 Procalcitonin Lvl) [place] [address]-10-12 11:47:00 Test Item Value Reference Range Interpretation Comments D-Dimer (test code = D-Dimer) 2.37 [place] [address]-10-12 11:47:00 Test Item Value Reference Range Interpretation Comments D-Dimer (test code = D-Dimer) 2.37 [place] [address]-10-12 11:47:00 Test Item Value Reference Range Interpretation Comments Coronavirus (COVID-19) Not Detected JONATHAN (test code = 10(07/12/23 6:47 AM) Coronavirus (COVID-19) JONATHAN) [place] [address]-10-12 11:47:00 Test Item Value Reference Range Interpretation Comments Coronavirus (COVID-19) Not Detected JONATHAN (test code = 8(07/12/23 6:47 AM) Coronavirus (COVID-19) JONATHAN) [facility]: [id number] 11:45:00 Test Item Value Reference Range Interpretation Comments Culture: Blood (test code No Growth At 5 Days = Culture: Blood) [facility] CenterCulture: [id number] 11:45:00 Test Item Value Reference Range Interpretation Comments Culture: Blood (test code No Growth At 5 Days = Culture: Blood) [place] 198913-10-12 11:30:00 Test Item Value Reference Range Interpretation Comments S. aureus (test code = Not Detected (07/12/23 S. aureus) 6:30 AM) [place] 198913-10-12 11:30:00 Test Item Value Reference Range Interpretation Comments S. epidermidis (test Not Detected code = S. epidermidis) (07/12/23 6:30 AM) [facility] [id number] 11:30:00 Test Item Value Reference Range Interpretation Comments S. lugdunensis (test Not Detected code = S. lugdunensis) (07/12/23 6:30 AM) [facility] [id number] 11:30:00 Test Item Value Reference Range Interpretation Comments S. anginosus grp (test Not Detected (07/12/23 code = S. anginosus 6:30 AM) grp) [facility]2023-10-12 11:30:00 Test Item Value Reference Range Interpretation Comments S. agalactiae (test code Not Detected = S. agalactiae) (07/12/23 6:30 AM) [facility]2023-10-12 11:30:00 Test Item Value Reference Range Interpretation Comments S. pneumoniae (test code Not Detected = S. pneumoniae) (07/12/23 6:30 AM) [facility] [id number] 11:30:00 Test Item Value Reference Range Interpretation Comments S. pyogenes (test code Not Detected (07/12/23 = S. pyogenes) 6:30 AM) [facility]2023-10-12 11:30:00 Test Item Value Reference Range Interpretation Comments E. faecalis (test code Detected = E. faecalis) *ABN*(07/12/23 6:30 AM) [facility] [id number] 11:30:00 Test Item Value Reference Range Interpretation Comments E. faecium (test code Not Detected (07/12/23 = E. faecium) 6:30 AM) [facility] [id number] 11:30:00 Test Item Value Reference Range Interpretation Comments Staphylococcus spp. (test Not Detected code = Staphylococcus (07/12/23 6:30 AM) spp.) [facility] [id number] 11:30:00 Test Item Value Reference Range Interpretation Comments Streptococcus spp. (test Not Detected code = Streptococcus (07/12/23 6:30 AM) spp.) [facility] [place] [id number] 11:30:00 Test Item Value Reference Range Interpretation Comments Listeria spp. (test Not Detected (07/12/23 code = Listeria spp.) 6:30 AM) [place] [address]-10-12 11:30:00 Test Item Value Reference Range Interpretation Comments mecA Methicillin Not Detected Resistance (test code = (07/12/23 6:30 AM) mecA Methicillin Resistance) [place] [address]-10-12 11:30:00 Test Item Value Reference Range Interpretation Comments Gabriela Vancomycin Not Detected Resistance (test code = (07/12/23 6:30 AM) Gabriela Vancomycin Resistance) [place] [address]-10-12 11:30:00 Test Item Value Reference Range Interpretation Comments vanB Vancomycin Not Detected Resistance (test code = 2(07/12/23 6:30 AM) vanB Vancomycin Resistance) [place] [address]-10-12 11:30:00 Test Item Value Reference Range Interpretation Comments S. aureus (test code = Not Detected (07/12/23 S. aureus) 6:30 AM) [place] [address]-10-12 11:30:00 Test Item Value Reference Range Interpretation Comments S. epidermidis (test Not Detected code = S. epidermidis) (07/12/23 6:30 AM) [place] [address]-10-12 11:30:00 Test Item Value Reference Range Interpretation Comments S. lugdunensis (test Not Detected code = S. lugdunensis) (07/12/23 6:30 AM) [place] 198913-10-12 11:30:00 Test Item Value Reference Range Interpretation Comments S. anginosus grp (test Not Detected (07/12/23 code = S. anginosus 6:30 AM) grp) [place] 198913-10-12 11:30:00 Test Item Value Reference Range Interpretation Comments S. agalactiae (test code Not Detected = S. agalactiae) (07/12/23 6:30 AM) [place] 198913-10-12 11:30:00 Test Item Value Reference Range Interpretation Comments S. pneumoniae (test code Not Detected = S. pneumoniae) (07/12/23 6:30 AM) [facility] [id number] 11:30:00 Test Item Value Reference Range Interpretation Comments S. pyogenes (test code Not Detected (07/12/23 = S. pyogenes) 6:30 AM) [place] 198913-10-12 11:30:00 Test Item Value Reference Range Interpretation Comments E. faecalis (test code Detected = E. faecalis) *ABN*(07/12/23 6:30 AM) [facility]2023-10-12 11:30:00 Test Item Value Reference Range Interpretation Comments E. faecium (test code Not Detected (07/12/23 = E. faecium) 6:30 AM) [place] 198913-10-12 11:30:00 Test Item Value Reference Range Interpretation Comments Staphylococcus spp. (test Not Detected code = Staphylococcus (07/12/23 6:30 AM) spp.) [facility]2023-10-12 11:30:00 Test Item Value Reference Range Interpretation Comments Streptococcus spp. (test Not Detected code = Streptococcus (07/12/23 6:30 AM) spp.) [facility]2023-10-12 11:30:00 Test Item Value Reference Range Interpretation Comments Listeria spp. (test Not Detected (07/12/23 code = Listeria spp.) 6:30 AM) [facility]2023-10-12 11:30:00 Test Item Value Reference Range Interpretation Comments mecA Methicillin Not Detected Resistance (test code = (07/12/23 6:30 AM) mecA Methicillin Resistance) [facility]2023-10-12 11:30:00 Test Item Value Reference Range Interpretation Comments Gabriela Vancomycin Not Detected Resistance (test code = (07/12/23 6:30 AM) Gabriela Vancomycin Resistance) [place] [address]-10-12 11:30:00 Test Item Value Reference Range Interpretation Comments vanB Vancomycin Not Detected Resistance (test code = 3(07/12/23 6:30 AM) vanB Vancomycin Resistance) [facility] CenterVANCOMYCIN:SUSC:PT:ISOLATE:ORDQN:[id number] 11:30:00 Test Item Value Reference Range Interpretation Comments Culture: Blood ENTEROCOCCUS FAECALIS (test code = DETECTED by Verigene Culture: Blood) nucleic acid test. . Aerobic Bottle: Enteroccocus faecalis . Critical Results Called To: Joaquina AVILES @ [place] [id number] At: 07/13/2023 04:35 Called By: JACQUELINE Read Back Ok [facility]COM[facility]C:PT:ISOLATE:ORDQN:[id number] 11:30:00 Test Item Value Reference Range Interpretation Comments Enteroccocus faecalis Enteroccocus faecalis (test code = Enteroccocus faecalis) [facility] [id number] 11:30:00 Test Item Value Reference Range Interpretation Comments S. aureus (test code = Not Detected (07/12/23 S. aureus) 6:30 AM) [facility] [id number] 11:30:00 Test Item Value Reference Range Interpretation Comments S. epidermidis (test Not Detected code = S. epidermidis) (07/12/23 6:30 AM) [facility] [id number] 11:30:00 Test Item Value Reference Range Interpretation Comments S. lugdunensis (test Not Detected code = S. lugdunensis) (07/12/23 6:30 AM) [facility] [id number] 11:30:00 Test Item Value Reference Range Interpretation Comments S. anginosus grp (test Not Detected (07/12/23 code = S. anginosus 6:30 AM) grp) [facility] [id number] 11:30:00 Test Item Value Reference Range Interpretation Comments S. agalactiae (test code Not Detected = S. agalactiae) (07/12/23 6:30 AM) [facility] [id number] 11:30:00 Test Item Value Reference Range Interpretation Comments S. pneumoniae (test code Not Detected = S. pneumoniae) (07/12/23 6:30 AM) [facility] [id number] 11:30:00 Test Item Value Reference Range Interpretation Comments S. pyogenes (test code Not Detected (07/12/23 = S. pyogenes) 6:30 AM) [facility] [id number] 11:30:00 Test Item Value Reference Range Interpretation Comments E. faecalis (test code Detected = E. faecalis) *ABN*(07/12/23 6:30 AM) [place] [address]-10-12 11:30:00 Test Item Value Reference Range Interpretation Comments E. faecium (test code Not Detected (07/12/23 = E. faecium) 6:30 AM) [place] [address]-10-12 11:30:00 Test Item Value Reference Range Interpretation Comments Staphylococcus spp. (test Not Detected code = Staphylococcus (07/12/23 6:30 AM) spp.) [place] [address]-10-12 11:30:00 Test Item Value Reference Range Interpretation Comments Streptococcus spp. (test Not Detected code = Streptococcus (07/12/23 6:30 AM) spp.) [place] [address]-10-12 11:30:00 Test Item Value Reference Range Interpretation Comments Listeria spp. (test Not Detected (07/12/23 code = Listeria spp.) 6:30 AM) [place] [address]-10-12 11:30:00 Test Item Value Reference Range Interpretation Comments mecA Methicillin Not Detected Resistance (test code = (07/12/23 6:30 AM) mecA Methicillin Resistance) [place] [address]-10-12 11:30:00 Test Item Value Reference Range Interpretation Comments Gabriela Vancomycin Not Detected Resistance (test code = (07/12/23 6:30 AM) Gabriela Vancomycin Resistance) [place] [address]-10-12 11:30:00 Test Item Value Reference Range Interpretation Comments vanB Vancomycin Not Detected Resistance (test code = 2(07/12/23 6:30 AM) vanB Vancomycin Resistance) [place] [address]-10-12 11:30:00 Test Item Value Reference Range Interpretation Comments S. aureus (test code = Not Detected (07/12/23 S. aureus) 6:30 AM) [place] [address]-10-12 11:30:00 Test Item Value Reference Range Interpretation Comments S. epidermidis (test Not Detected code = S. epidermidis) (07/12/23 6:30 AM) [place] [address]-10-12 11:30:00 Test Item Value Reference Range Interpretation Comments S. lugdunensis (test Not Detected code = S. lugdunensis) (07/12/23 6:30 AM) [facility]2023-10-12 11:30:00 Test Item Value Reference Range Interpretation Comments S. anginosus grp (test Not Detected (07/12/23 code = S. anginosus 6:30 AM) grp) [place] 198913-10-12 11:30:00 Test Item Value Reference Range Interpretation Comments S. agalactiae (test code Not Detected = S. agalactiae) (07/12/23 6:30 AM) [place] 198913-10-12 11:30:00 Test Item Value Reference Range Interpretation Comments S. pneumoniae (test code Not Detected = S. pneumoniae) (07/12/23 6:30 AM) [place] 198913-10-12 11:30:00 Test Item Value Reference Range Interpretation Comments S. pyogenes (test code Not Detected (07/12/23 = S. pyogenes) 6:30 AM) [facility]2023-10-12 11:30:00 Test Item Value Reference Range Interpretation Comments E. faecalis (test code Detected = E. faecalis) *ABN*(07/12/23 6:30 AM) [facility]2023-10-12 11:30:00 Test Item Value Reference Range Interpretation Comments E. faecium (test code Not Detected (07/12/23 = E. faecium) 6:30 AM) [facility]2023-10-12 11:30:00 Test Item Value Reference Range Interpretation Comments Staphylococcus spp. (test Not Detected code = Staphylococcus (07/12/23 6:30 AM) spp.) [facility]2023-10-12 11:30:00 Test Item Value Reference Range Interpretation Comments Streptococcus spp. (test Not Detected code = Streptococcus (07/12/23 6:30 AM) spp.) [place] 198913-10-12 11:30:00 Test Item Value Reference Range Interpretation Comments Listeria spp. (test Not Detected (07/12/23 code = Listeria spp.) 6:30 AM) [facility] [id number] 11:30:00 Test Item Value Reference Range Interpretation Comments mecA Methicillin Not Detected Resistance (test code = (07/12/23 6:30 AM) mecA Methicillin Resistance) [facility] [id number] 11:30:00 Test Item Value Reference Range Interpretation Comments Gabriela Vancomycin Not Detected Resistance (test code = (07/12/23 6:30 AM) Gabriela Vancomycin Resistance) [facility]2023-10-12 11:30:00 Test Item Value Reference Range Interpretation Comments vanB Vancomycin Not Detected Resistance (test code = 3(07/12/23 6:30 AM) vanB Vancomycin Resistance) [facility]PT:ISOLATE:ORDQN:[id number] 11:30:00 Test Item Value Reference Range Interpretation Comments Culture: Blood ENTEROCOCCUS FAECALIS (test code = DETECTED by Verigene Culture: Blood) nucleic acid test. . Aerobic Bottle: Enteroccocus faecalis . Critical Results Called To: Joaquina AVILES @ [address] At: 07/13/2023 04:35 Called By: DV Read Back Ok [facility]C:PT:ISOLATE:ORDQN:[id number] 11:30:00 Test Item Value Reference Range Interpretation Comments Enteroccocus faecalis Enteroccocus faecalis (test code = Enteroccocus faecalis) [facility] HospitalNemtejgUAPZZU3626-58-44 08:13:07 Test Item Value Reference Range Interpretation [...] sinusitis. Anatoly Tobin MD On 07/12/2023 03:12:16; [id number] [facility]woodWvwlsneQHVRZS4435-94-18 08:13:07 Test Item Value Reference Range Interpretation [...] sinusitis. Anatoly Tobin MD On 07/12/2023 03:12:16; [id number] [facility]woodHhkkqhvGMAUAL7305-87-61 08:08:06 Test Item Value Reference Range Interpretation [...] C6-C7. Anatoly Tobin MD On 07/12/2023 03:07:25; [id number] [facility] BrownwoodXlgrwiqJFRPBS9308-32-72 08:08:06 Test Item Value Reference Range Interpretation [...] C6-C7. Anatoly Tobin MD On 07/12/2023 03:07:25; [id number] [facility] CenterKlinkknKEYEUF1808-34-55 07:45:35 Test Item Value Reference Range Interpretation [...] atelectasis. Brigido Jameson MD On 07/12/2023 02:44:13; [id number] [facility] CenterWnhmhudOKMCCC1116-97-17 07:45:35 Test Item Value Reference Range Interpretation [...] atelectasis. Brigido Jameson MD On 07/12/2023 02:44:13; [id number] [facility] HospitalWrxrthvXXUKPF6122-86-55 07:44:20 Test Item Value Reference Range Interpretation [...] process. Brigido Jameson MD On 07/12/2023 02:43:22; [id number] [facility] CenterJeutxawWOAQJH0232-11-22 07:44:20 Test Item Value Reference Range Interpretation [...] process. Brigido Jameson MD On 07/12/2023 02:43:22; [id number] [facility]aleCou[facility] IWZQEEW9338-39-66 07:40:00 Test Item Value Reference Range Interpretation Comments HS Troponin I (test code = HS Troponin 29 I) [facility] SunnyvaleShareableeAC FSQGLEC2961-57-64 07:40:00 Test Item Value Reference Range Interpretation Comments BNP (test code = BNP) 2390 [facility] SunnyvaleJgyldyrMNNTNOIFS5586-49-31 07:40:00 Test Item Value Reference Range Interpretation Comments HS Troponin I (test code = HS Troponin 29 I) [facility] SunnyvaleFcyoylqOMFQHXYOY1466-81-39 07:40:00 Test Item Value Reference Range Interpretation Comments BNP (test code = BNP) 2390 [facility] SunnyvaleVvggzknHWEVUOPKGB3820-17-54 07:40:00 Test Item Value Reference Range Interpretation Comments Segs (test code = Segs) 82.4 45.0-75.0 [facility] SunnyvaleHrtpgkkVIGXKPQDGE5432-35-19 07:40:00 Test Item Value Reference Range Interpretation Comments Lymphocytes (test code = Lymphocytes) 6.0 20.0-40.0 [place] 963423-10-12 07:40:00 Test Item Value Reference Range Interpretation Comments Monocytes (test code = Monocytes) 10.3 2.0-12.0 [place] 963423-10-12 07:40:00 Test Item Value Reference Range Interpretation Comments Eosinophils (test code = Eosinophils) 0.8 <=4.0 [place] 963423-10-12 07:40:00 Test Item Value Reference Range Interpretation Comments Basophils (test code = Basophils) 0.5 <=1.0 [place] 963423-10-12 07:40:00 Test Item Value Reference Range Interpretation Comments Neutrophils # (test code = Neutrophils 11.2 1.5-8.1 #) [facility]XybavktFWZJYDHYLI2537-95-30 07:40:00 Test Item Value Reference Range Interpretation Comments Lymphocytes # (test code = Lymphocytes 0.8 1.0-5.5 #) [facility] HospitalIhvfdygPMASRPTPZN3381-03-12 07:40:00 Test Item Value Reference Range Interpretation Comments Monocytes # (test code = Monocytes #) 1.4 <=0.8 [place] 963423-10-12 07:40:00 Test Item Value Reference Range Interpretation Comments Eosinophils # (test code = Eosinophils 0.1 <=0.5 #) [facility] HospitalPhuonamJPOVLUZFCX1650-99-20 07:40:00 Test Item Value Reference Range Interpretation Comments Basophils # (test code = Basophils #) 0.1 <=0.2 [facility] SKHMIWJ9843-32-77 07:40:00 Test Item Value Reference Range Interpretation Comments HS Troponin I (test code = HS Troponin 29 I) [facility] LCUXPRT3184-94-90 07:40:00 Test Item Value Reference Range Interpretation Comments BNP (test code = BNP) 2390 [facility] TexasRxqjphdXYOTQHDYM0369-31-73 07:40:00 Test Item Value Reference Range Interpretation Comments HS Troponin I (test code = HS Troponin 29 I) [facility] TexasIuzxbsbWXITSEIXL4905-04-59 07:40:00 Test Item Value Reference Range Interpretation Comments BNP (test code = BNP) 2390 [facility] HospitalXoxbpeqSIVIUJZJLW6075-52-39 07:40:00 Test Item Value Reference Range Interpretation Comments Segs (test code = Segs) 82.4 45.0-75.0 [place] [address]-10-12 07:40:00 Test Item Value Reference Range Interpretation Comments Lymphocytes (test code = Lymphocytes) 6.0 20.0-40.0 [place] [address]-10-12 07:40:00 Test Item Value Reference Range Interpretation Comments Monocytes (test code = Monocytes) 10.3 2.0-12.0 [place] [address]-10-12 07:40:00 Test Item Value Reference Range Interpretation Comments Eosinophils (test code = Eosinophils) 0.8 <=4.0 [place] [address]-10-12 07:40:00 Test Item Value Reference Range Interpretation Comments Basophils (test code = Basophils) 0.5 <=1.0 [place] [address]-10-12 07:40:00 Test Item Value Reference Range Interpretation Comments Neutrophils # (test code = Neutrophils 11.2 1.5-8.1 #) [place] [address]-10-12 07:40:00 Test Item Value Reference Range Interpretation Comments Lymphocytes # (test code = Lymphocytes 0.8 1.0-5.5 #) [facility] HospitalKnnqjewRNOFFOKAOF8353-95-84 07:40:00 Test Item Value Reference Range Interpretation Comments Monocytes # (test code = Monocytes #) 1.4 <=0.8 [place] [address]-10-12 07:40:00 Test Item Value Reference Range Interpretation Comments Eosinophils # (test code = Eosinophils 0.1 <=0.5 #) [place] [address]-10-12 07:40:00 Test Item Value Reference Range Interpretation Comments Basophils # (test code = Basophils #) 0.1 <=0.2 [place] 457353-02-28 09:49:00 Test Item Value Reference Range Interpretation Comments Glucose Lvl (test code = Glucose Lvl) 93 70-99 [facility]2023-02-28 09:49:00 Test Item Value Reference Range Interpretation Comments BUN (test code = BUN) 30 7-22 [place] 457353-02-28 09:49:00 Test Item Value Reference Range Interpretation Comments Creatinine Lvl (test code = Creatinine 2.50 0.50-1.40 Lvl) [place] 457353-02-28 09:49:00 Test Item Value Reference Range Interpretation Comments Sodium Lvl (test code = Sodium Lvl) 138 135-145 [place] [address]-02-28 09:49:00 Test Item Value Reference Range Interpretation Comments Potassium Lvl (test code = Potassium 5.1 3.5-5.1 Lvl) [place] [address]-02-28 09:49:00 Test Item Value Reference Range Interpretation Comments Chloride Lvl (test code = Chloride Lvl) 108 95-109 [place] [address]-02-28 09:49:00 Test Item Value Reference Range Interpretation Comments CO2 (test code = CO2) 30 24-32 [place] 457353-02-28 09:49:00 Test Item Value Reference Range Interpretation Comments Calcium Lvl (test code = Calcium Lvl) 8.0 8.5-10.5 [place] 457353-02-28 09:49:00 Test Item Value Reference Range Interpretation Comments AGAP (test code = AGAP) 5.1 10.0-20.0 [place] 457353-02-28 09:49:00 Test Item Value Reference Range Interpretation Comments eGFR (test code = eGFR) 19 [place] [address]-02-28 09:49:00 Test Item Value Reference Range Interpretation Comments Glucose Lvl (test code = Glucose Lvl) 93 70-99 [place] [address]-02-28 09:49:00 Test Item Value Reference Range Interpretation Comments BUN (test code = BUN) 30 7-22 [place] 922233-02-28 09:49:00 Test Item Value Reference Range Interpretation Comments Creatinine Lvl (test code = Creatinine 2.50 0.50-1.40 Lvl) [place] [address]-02-28 09:49:00 Test Item Value Reference Range Interpretation Comments Sodium Lvl (test code = Sodium Lvl) 138 135-145 [place] [address]-02-28 09:49:00 Test Item Value Reference Range Interpretation Comments Potassium Lvl (test code = Potassium 5.1 3.5-5.1 Lvl) [place] [address]-02-28 09:49:00 Test Item Value Reference Range Interpretation Comments Chloride Lvl (test code = Chloride Lvl) 108 95-109 [place] 922233-02-28 09:49:00 Test Item Value Reference Range Interpretation Comments CO2 (test code = CO2) 30 24-32 [place] 922233-02-28 09:49:00 Test Item Value Reference Range Interpretation Comments Calcium Lvl (test code = Calcium Lvl) 8.0 8.5-10.5 [place] 922233-02-28 09:49:00 Test Item Value Reference Range Interpretation Comments AGAP (test code = AGAP) 5.1 10.0-20.0 [place] [address]-02-28 09:49:00 Test Item Value Reference Range Interpretation Comments eGFR (test code = eGFR) 19 [facility] HospitalAlgledqRDQFCERDAH8852-42-81 09:49:00 Test Item Value Reference Range Interpretation Comments Segs (test code = Segs) 49.2 45.0-75.0 [place] 963423-02-28 09:49:00 Test Item Value Reference Range Interpretation Comments Lymphocytes (test code = Lymphocytes) 33.0 20.0-40.0 [place] 963423-02-28 09:49:00 Test Item Value Reference Range Interpretation Comments Monocytes (test code = Monocytes) 10.5 2.0-12.0 [place] 963423-02-28 09:49:00 Test Item Value Reference Range Interpretation Comments Eosinophils (test code = 6.6 See_Comment [A utomated message] The Eosinophils) system which ge nerated this result tra nsmitted reference range : <=4.0. The reference r christiano was not used to int erpret this result as normal/abnormal . [facility] HospitalLrvdwhbEUBPGXPGDE7902-09-81 09:49:00 Test Item Value Reference Range Interpretation Comments Basophils (test code = 0.7 See_Comment [Aut omated message] The Basophils) system which ge nerated this result tra nsmitted reference range : <=1.0. The reference r christiano was not used to int erpret this result as normal/abnormal . [place] 963423-02-28 09:49:00 Test Item Value Reference Range Interpretation Comments Neutrophils # (test code = Neutrophils 3.0 1.5-8.1 #) [place] 963423-02-28 09:49:00 Test Item Value Reference Range Interpretation Comments Lymphocytes # (test code = Lymphocytes 2.0 1.0-5.5 #) [place] 963423-02-28 09:49:00 Test Item Value Reference Range Interpretation Comments Monocytes # (test code 0.7 See_Comment [Aut omated message] The = Monocytes #) system which generated this result tra nsmitted reference range : <=0.8. The reference r christiano was not used to int erpret this result as normal/abnormal . [place] 963423-02-28 09:49:00 Test Item Value Reference Range Interpretation Comments Eosinophils # (test code 0.4 See_Comment [A utomated message] The = Eosinophils #) system whic h generated this result tra nsmitted reference range : <=0.5. The reference r christiano was not used to int erpret this result as normal/abnormal . [place] 963423-02-28 09:49:00 Test Item Value Reference Range Interpretation Comments WBC (test code = WBC) 6.2 3.7-10.4 [place] 963423-02-28 09:49:00 Test Item Value Reference Range Interpretation Comments RBC (test code = RBC) 3.06 4.20-5.40 [place] [address]-02-28 09:49:00 Test Item Value Reference Range Interpretation Comments Hgb (test code = Hgb) 9.2 12.0-16.0 [place] 963423-02-28 09:49:00 Test Item Value Reference Range Interpretation Comments Hct (test code = Hct) 28.0 36.0-48.0 [place] 963423-02-28 09:49:00 Test Item Value Reference Range Interpretation Comments MCV (test code = MCV) 91.5 80.0-98.0 [place] [address]-02-28 09:49:00 Test Item Value Reference Range Interpretation Comments MCH (test code = MCH) 30.0 pg 27.0-31.0 [place] 963423-02-28 09:49:00 Test Item Value Reference Range Interpretation Comments MCHC (test code = MCHC) 32.7 32.0-36.0 [place] 963423-02-28 09:49:00 Test Item Value Reference Range Interpretation Comments RDW (test code = RDW) 14.1 11.5-14.5 [place] 963423-02-28 09:49:00 Test Item Value Reference Range Interpretation Comments Platelet (test code = Platelet) 136 133-450 [place] [address]-02-28 09:49:00 Test Item Value Reference Range Interpretation Comments MPV (test code = MPV) 7.7 7.4-10.4 [place] [address]-02-28 09:49:00 Test Item Value Reference Range Interpretation Comments Segs (test code = Segs) 49.2 45.0-75.0 [place] [address]-02-28 09:49:00 Test Item Value Reference Range Interpretation Comments Lymphocytes (test code = Lymphocytes) 33.0 20.0-40.0 [place] [address]-02-28 09:49:00 Test Item Value Reference Range Interpretation Comments Monocytes (test code = Monocytes) 10.5 2.0-12.0 [place] [address]-02-28 09:49:00 Test Item Value Reference Range Interpretation Comments Eosinophils (test code = 6.6 See_Comment [A utomated message] The Eosinophils) system which ge nerated this result tra nsmitted reference range : <=4.0. The reference r christiano was not used to int erpret this result as normal/abnormal . [place] [address]-02-28 09:49:00 Test Item Value Reference Range Interpretation Comments Basophils (test code = 0.7 See_Comment [Aut omated message] The Basophils) system which ge nerated this result tra nsmitted reference range : <=1.0. The reference r christiano was not used to int erpret this result as normal/abnormal . [place] 963423-02-28 09:49:00 Test Item Value Reference Range Interpretation Comments Neutrophils # (test code = Neutrophils 3.0 1.5-8.1 #) [place] [address]-02-28 09:49:00 Test Item Value Reference Range Interpretation Comments Lymphocytes # (test code = Lymphocytes 2.0 1.0-5.5 #) [place] [address]-02-28 09:49:00 Test Item Value Reference Range Interpretation Comments Monocytes # (test code 0.7 See_Comment [Aut omated message] The = Monocytes #) system which generated this result tra nsmitted reference range : <=0.8. The reference r christiano was not used to int erpret this result as normal/abnormal . [facility] HospitalVvlyyrjXDUROQGQAZ6729-15-11 09:49:00 Test Item Value Reference Range Interpretation Comments Eosinophils # (test code 0.4 See_Comment [A utomated message] The = Eosinophils #) system whic h generated this result tra nsmitted reference range : <=0.5. The reference r christiano was not used to int erpret this result as normal/abnormal . [facility] HospitalCqfhehiYBQSICNITM9361-71-41 09:49:00 Test Item Value Reference Range Interpretation Comments WBC (test code = WBC) 6.2 3.7-10.4 [place] 963423-02-28 09:49:00 Test Item Value Reference Range Interpretation Comments RBC (test code = RBC) 3.06 4.20-5.40 [facility] HospitalWgzubajXOKGRZILJO7631-40-45 09:49:00 Test Item Value Reference Range Interpretation Comments Hgb (test code = Hgb) 9.2 12.0-16.0 [place] 963423-02-28 09:49:00 Test Item Value Reference Range Interpretation Comments Hct (test code = Hct) 28.0 36.0-48.0 [facility] HospitalRibxgwiBFFASGBFZG5118-65-38 09:49:00 Test Item Value Reference Range Interpretation Comments MCV (test code = MCV) 91.5 80.0-98.0 [facility] HospitalLhwhksePYDSRJHYMU6284-25-71 09:49:00 Test Item Value Reference Range Interpretation Comments MCH (test code = MCH) 30.0 pg 27.0-31.0 [place] 963423-02-28 09:49:00 Test Item Value Reference Range Interpretation Comments MCHC (test code = MCHC) 32.7 32.0-36.0 [place] 963423-02-28 09:49:00 Test Item Value Reference Range Interpretation Comments RDW (test code = RDW) 14.1 11.5-14.5 [place] 963423-02-28 09:49:00 Test Item Value Reference Range Interpretation Comments Platelet (test code = Platelet) 136 133-450 [facility] HospitalLdbbkkwIIXKKWRRZS6442-27-24 09:49:00 Test Item Value Reference Range Interpretation Comments MPV (test code = MPV) 7.7 7.4-10.4 [place] 457353-02-28 09:49:00 Test Item Value Reference Range Interpretation Comments Glucose Lvl (test code = Glucose Lvl) 93 70-99 [place] 457353-02-28 09:49:00 Test Item Value Reference Range Interpretation Comments BUN (test code = BUN) 30 04-21 [place] 457353-02-28 09:49:00 Test Item Value Reference Range Interpretation Comments Creatinine Lvl (test code = Creatinine 2.50 0.50-1.40 Lvl) [place] 457353-02-28 09:49:00 Test Item Value Reference Range Interpretation Comments Sodium Lvl (test code = Sodium Lvl) 138 135-145 [place] 457353-02-28 09:49:00 Test Item Value Reference Range Interpretation Comments Potassium Lvl (test code = Potassium 5.1 3.5-5.1 Lvl) [place] 457353-02-28 09:49:00 Test Item Value Reference Range Interpretation Comments Chloride Lvl (test code = Chloride Lvl) 108 95-109 [place] 457353-02-28 09:49:00 Test Item Value Reference Range Interpretation Comments CO2 (test code = CO2) 30 24-32 [facility]2023-02-28 09:49:00 Test Item Value Reference Range Interpretation Comments Calcium Lvl (test code = Calcium Lvl) 8.0 8.5-10.5 [place] 457353-02-28 09:49:00 Test Item Value Reference Range Interpretation Comments AGAP (test code = AGAP) 5.1 10.0-20.0 [place] 457353-02-28 09:49:00 Test Item Value Reference Range Interpretation Comments eGFR (test code = eGFR) 19 [facility]KftfzuqOFQOIVDPQ0163-53-46 09:49:00 Test Item Value Reference Range Interpretation Comments Glucose Lvl (test code = Glucose Lvl) 93 70- [facility] TexasEvwlcrsBJKPAEHUG5699-98-22 09:49:00 Test Item Value Reference Range Interpretation Comments BUN (test code = BUN) 30 - [place] 922233-02-28 09:49:00 Test Item Value Reference Range Interpretation Comments Creatinine Lvl (test code = Creatinine 2.50 0.50-1.40 Lvl) [facility] TexasDbztmufBVSXKNHQD1763-52-01 09:49:00 Test Item Value Reference Range Interpretation Comments Sodium Lvl (test code = Sodium Lvl) 138 135-145 [place] 922233-02-28 09:49:00 Test Item Value Reference Range Interpretation Comments Potassium Lvl (test code = Potassium 5.1 3.5-5.1 Lvl) [facility] TexasRiebcllIBQYHBSNC2704-55-97 09:49:00 Test Item Value Reference Range Interpretation Comments Chloride Lvl (test code = Chloride Lvl) 108 95-109 [place] 922233-02-28 09:49:00 Test Item Value Reference Range Interpretation Comments CO2 (test code = CO2) 30 24-32 [place] 922233-02-28 09:49:00 Test Item Value Reference Range Interpretation Comments Calcium Lvl (test code = Calcium Lvl) 8.0 8.5-10.5 [facility] TexasRsqtvfeWJPAAYPSD0358-17-98 09:49:00 Test Item Value Reference Range Interpretation Comments AGAP (test code = AGAP) 5.1 10.0-20.0 [facility] TexasAshczyxTVFBAUJMY5178-76-89 09:49:00 Test Item Value Reference Range Interpretation Comments eGFR (test code = eGFR) 19 [facility] HospitalOaabempHTBTZBJQEG9035-17-19 09:49:00 Test Item Value Reference Range Interpretation Comments Segs (test code = Segs) 49.2 45.0-75.0 [place] 963423-02-28 09:49:00 Test Item Value Reference Range Interpretation Comments Lymphocytes (test code = Lymphocytes) 33.0 20.0-40.0 [place] 963423-02-28 09:49:00 Test Item Value Reference Range Interpretation Comments Monocytes (test code = Monocytes) 10.5 2.0-12.0 [place] 963423-02-28 09:49:00 Test Item Value Reference Range Interpretation Comments Eosinophils (test code = 6.6 See_Comment [A utomated message] The Eosinophils) system which ge nerated this result tra nsmitted reference range : <=4.0. The reference r christiano was not used to int erpret this result as normal/abnormal . [facility] HospitalXapwsztPIMATGSLLC7268-64-96 09:49:00 Test Item Value Reference Range Interpretation Comments Basophils (test code = 0.7 See_Comment [Aut omated message] The Basophils) system which ge nerated this result tra nsmitted reference range : <=1.0. The reference r christiano was not used to int erpret this result as normal/abnormal . [facility] HospitalFdyieflNVCBGOBLUQ6163-62-34 09:49:00 Test Item Value Reference Range Interpretation Comments Neutrophils # (test code = Neutrophils 3.0 1.5-8.1 #) [facility] HospitalYthqoyjDZYCFBZMQO8165-50-37 09:49:00 Test Item Value Reference Range Interpretation Comments Lymphocytes # (test code = Lymphocytes 2.0 1.0-5.5 #) [facility] HospitalGznyeglBGKVIZHGYI6054-24-79 09:49:00 Test Item Value Reference Range Interpretation Comments Monocytes # (test code 0.7 See_Comment [Aut omated message] The = Monocytes #) system which generated this result tra nsmitted reference range : <=0.8. The reference r christiano was not used to int erpret this result as normal/abnormal . [facility] HospitalAyhfnqxTQADARQBEC3626-33-41 09:49:00 Test Item Value Reference Range Interpretation Comments Eosinophils # (test code 0.4 See_Comment [A utomated message] The = Eosinophils #) system whic h generated this result tra nsmitted reference range : <=0.5. The reference r christiano was not used to int erpret this result as normal/abnormal . [facility] HospitalJveoipjDSEPEIVXPW8954-57-06 09:49:00 Test Item Value Reference Range Interpretation Comments WBC (test code = WBC) 6.2 3.7-10.4 [place] 963423-02-28 09:49:00 Test Item Value Reference Range Interpretation Comments RBC (test code = RBC) 3.06 4.20-5.40 [place] 963423-02-28 09:49:00 Test Item Value Reference Range Interpretation Comments Hgb (test code = Hgb) 9.2 12.0-16.0 [facility] HospitalCaamcttGMYFNQHFOI1930-21-93 09:49:00 Test Item Value Reference Range Interpretation Comments Hct (test code = Hct) 28.0 36.0-48.0 [place] 963423-02-28 09:49:00 Test Item Value Reference Range Interpretation Comments MCV (test code = MCV) 91.5 80.0-98.0 [place] [address]-02-28 09:49:00 Test Item Value Reference Range Interpretation Comments MCH (test code = MCH) 30.0 pg 27.0-31.0 [place] 963423-02-28 09:49:00 Test Item Value Reference Range Interpretation Comments MCHC (test code = MCHC) 32.7 32.0-36.0 [place] [address]-02-28 09:49:00 Test Item Value Reference Range Interpretation Comments RDW (test code = RDW) 14.1 11.5-14.5 [place] [address]-02-28 09:49:00 Test Item Value Reference Range Interpretation Comments Platelet (test code = Platelet) 136 133-450 [place] 963423-02-28 09:49:00 Test Item Value Reference Range Interpretation Comments MPV (test code = MPV) 7.7 7.4-10.4 [place] 963423-02-28 09:49:00 Test Item Value Reference Range Interpretation Comments Segs (test code = Segs) 49.2 45.0-75.0 [place] [address]-02-28 09:49:00 Test Item Value Reference Range Interpretation Comments Lymphocytes (test code = Lymphocytes) 33.0 20.0-40.0 [place] [address]-02-28 09:49:00 Test Item Value Reference Range Interpretation Comments Monocytes (test code = Monocytes) 10.5 2.0-12.0 [place] [address]-02-28 09:49:00 Test Item Value Reference Range Interpretation Comments Eosinophils (test code = 6.6 See_Comment [A utomated message] The Eosinophils) system which ge nerated this result tra nsmitted reference range : <=4.0. The reference r christiano was not used to int erpret this result as normal/abnormal . [place] 963423-02-28 09:49:00 Test Item Value Reference Range Interpretation Comments Basophils (test code = 0.7 See_Comment [Aut omated message] The Basophils) system which ge nerated this result tra nsmitted reference range : <=1.0. The reference r christiano was not used to int erpret this result as normal/abnormal . [place] 963423-02-28 09:49:00 Test Item Value Reference Range Interpretation Comments Neutrophils # (test code = Neutrophils 3.0 1.5-8.1 #) [place] [address]-02-28 09:49:00 Test Item Value Reference Range Interpretation Comments Lymphocytes # (test code = Lymphocytes 2.0 1.0-5.5 #) [place] [address]-02-28 09:49:00 Test Item Value Reference Range Interpretation Comments Monocytes # (test code 0.7 See_Comment [Aut omated message] The = Monocytes #) system which generated this result tra nsmitted reference range : <=0.8. The reference r christiano was not used to int erpret this result as normal/abnormal . [place] [address]-02-28 09:49:00 Test Item Value Reference Range Interpretation Comments Eosinophils # (test code 0.4 See_Comment [A utomated message] The = Eosinophils #) system whic h generated this result tra nsmitted reference range : <=0.5. The reference r christiano was not used to int erpret this result as normal/abnormal . [place] 963423-02-28 09:49:00 Test Item Value Reference Range Interpretation Comments WBC (test code = WBC) 6.2 3.7-10.4 [place] [address]-02-28 09:49:00 Test Item Value Reference Range Interpretation Comments RBC (test code = RBC) 3.06 4.20-5.40 [place] [address]-02-28 09:49:00 Test Item Value Reference Range Interpretation Comments Hgb (test code = Hgb) 9.2 12.0-16.0 [place] [address]-02-28 09:49:00 Test Item Value Reference Range Interpretation Comments Hct (test code = Hct) 28.0 36.0-48.0 [place] [address]-02-28 09:49:00 Test Item Value Reference Range Interpretation Comments MCV (test code = MCV) 91.5 80.0-98.0 [place] [address]-02-28 09:49:00 Test Item Value Reference Range Interpretation Comments MCH (test code = MCH) 30.0 pg 27.0-31.0 [place] 963423-02-28 09:49:00 Test Item Value Reference Range Interpretation Comments MCHC (test code = MCHC) 32.7 32.0-36.0 [place] 963423-02-28 09:49:00 Test Item Value Reference Range Interpretation Comments RDW (test code = RDW) 14.1 11.5-14.5 [place] [address]-02-28 09:49:00 Test Item Value Reference Range Interpretation Comments Platelet (test code = Platelet) 136 133-450 [place] 963423-02-28 09:49:00 Test Item Value Reference Range Interpretation Comments MPV (test code = MPV) 7.7 7.4-10.4 [place] 457353-02-28 09:49:00 Test Item Value Reference Range Interpretation Comments Glucose Lvl (test code = Glucose Lvl) 93 70-99 [place] 457353-02-28 09:49:00 Test Item Value Reference Range Interpretation Comments BUN (test code = BUN) 30 7-22 [place] 457353-02-28 09:49:00 Test Item Value Reference Range Interpretation Comments Creatinine Lvl (test code = Creatinine 2.50 0.50-1.40 Lvl) [place] 457353-02-28 09:49:00 Test Item Value Reference Range Interpretation Comments Sodium Lvl (test code = Sodium Lvl) 138 135-145 [place] 457353-02-28 09:49:00 Test Item Value Reference Range Interpretation Comments Potassium Lvl (test code = Potassium 5.1 3.5-5.1 Lvl) [place] 457353-02-28 09:49:00 Test Item Value Reference Range Interpretation Comments Chloride Lvl (test code = Chloride Lvl) 108 95-109 [place] 457353-02-28 09:49:00 Test Item Value Reference Range Interpretation Comments CO2 (test code = CO2) 30 24-32 [place] 457353-02-28 09:49:00 Test Item Value Reference Range Interpretation Comments Calcium Lvl (test code = Calcium Lvl) 8.0 8.5-10.5 [place] 457353-02-28 09:49:00 Test Item Value Reference Range Interpretation Comments AGAP (test code = AGAP) 5.1 10.0-20.0 [facility]2023-02-28 09:49:00 Test Item Value Reference Range Interpretation Comments eGFR (test code = eGFR) 19 [place] 922233-02-28 09:49:00 Test Item Value Reference Range Interpretation Comments Glucose Lvl (test code = Glucose Lvl) 93 70-99 [place] 922233-02-28 09:49:00 Test Item Value Reference Range Interpretation Comments BUN (test code = BUN) 30 7-22 [place] [address]-02-28 09:49:00 Test Item Value Reference Range Interpretation Comments Creatinine Lvl (test code = Creatinine 2.50 0.50-1.40 Lvl) [facility]TAP3257-52-25 09:49:00 Test Item Value Reference Range Interpretation Comments Sodium Lvl (test code = Sodium Lvl) 138 135-145 [place] 922233-02-28 09:49:00 Test Item Value Reference Range Interpretation Comments Potassium Lvl (test code = Potassium 5.1 3.5-5.1 Lvl) [facility]StpyfkxRRWQIHKOB8720-48-27 09:49:00 Test Item Value Reference Range Interpretation Comments Chloride Lvl (test code = Chloride Lvl) 108 95-109 [facility]LdqhrovSUJNYBWDE7913-02-27 09:49:00 Test Item Value Reference Range Interpretation Comments CO2 (test code = CO2) 30 24-32 [place] 922233-02-28 09:49:00 Test Item Value Reference Range Interpretation Comments Calcium Lvl (test code = Calcium Lvl) 8.0 8.5-10.5 [facility] TexasZcjbbpfUSJZPNOWV6625-60-39 09:49:00 Test Item Value Reference Range Interpretation Comments AGAP (test code = AGAP) 5.1 10.0-20.0 [place] 922233-02-28 09:49:00 Test Item Value Reference Range Interpretation Comments eGFR (test code = eGFR) 19 [facility]USYDKJFMO2255-79-45 09:49:00 Test Item Value Reference Range Interpretation Comments Segs (test code = Segs) 49.2 45.0-75.0 [place] [address]-02-28 09:49:00 Test Item Value Reference Range Interpretation Comments Lymphocytes (test code = Lymphocytes) 33.0 20.0-40.0 [place] [address]-02-28 09:49:00 Test Item Value Reference Range Interpretation Comments Monocytes (test code = Monocytes) 10.5 2.0-12.0 [place] [address]-02-28 09:49:00 Test Item Value Reference Range Interpretation Comments Eosinophils (test code = 6.6 See_Comment [A utomated message] The Eosinophils) system which ge nerated this result tra nsmitted reference range : <=4.0. The reference r christiano was not used to int erpret this result as normal/abnormal . [place] [address]-02-28 09:49:00 Test Item Value Reference Range Interpretation Comments Basophils (test code = 0.7 See_Comment [Aut omated message] The Basophils) system which ge nerated this result tra nsmitted reference range : <=1.0. The reference r christiano was not used to int erpret this result as normal/abnormal . [facility]kifbxaFDJUCXWOBY5928-81-79 09:49:00 Test Item Value Reference Range Interpretation Comments Neutrophils # (test code = Neutrophils 3.0 1.5-8.1 #) [place] [address]-02-28 09:49:00 Test Item Value Reference Range Interpretation Comments Lymphocytes # (test code = Lymphocytes 2.0 1.0-5.5 #) [place] [address]-02-28 09:49:00 Test Item Value Reference Range Interpretation Comments Monocytes # (test code 0.7 See_Comment [Aut omated message] The = Monocytes #) system which generated this result tra nsmitted reference range : <=0.8. The reference r christiano was not used to int erpret this result as normal/abnormal . [place] [address]-02-28 09:49:00 Test Item Value Reference Range Interpretation Comments Eosinophils # (test code 0.4 See_Comment [A utomated message] The = Eosinophils #) system whic h generated this result tra nsmitted reference range : <=0.5. The reference r christiano was not used to int erpret this result as normal/abnormal . [place] 963423-02-28 09:49:00 Test Item Value Reference Range Interpretation Comments WBC (test code = WBC) 6.2 3.7-10.4 [place] 963423-02-28 09:49:00 Test Item Value Reference Range Interpretation Comments RBC (test code = RBC) 3.06 4.20-5.40 [place] 963423-02-28 09:49:00 Test Item Value Reference Range Interpretation Comments Hgb (test code = Hgb) 9.2 12.0-16.0 [place] 963423-02-28 09:49:00 Test Item Value Reference Range Interpretation Comments Hct (test code = Hct) 28.0 36.0-48.0 [place] 963423-02-28 09:49:00 Test Item Value Reference Range Interpretation Comments MCV (test code = MCV) 91.5 80.0-98.0 [place] 963423-02-28 09:49:00 Test Item Value Reference Range Interpretation Comments MCH (test code = MCH) 30.0 pg 27.0-31.0 [facility]UwlbejuCRORWXAYKY8330-73-08 09:49:00 Test Item Value Reference Range Interpretation Comments MCHC (test code = MCHC) 32.7 32.0-36.0 [facility] HospitalZbpdfkzKPPMLPWAMR4161-66-24 09:49:00 Test Item Value Reference Range Interpretation Comments RDW (test code = RDW) 14.1 11.5-14.5 [facility] HospitalIkdtfwsVHHNSLNNSU5411-76-23 09:49:00 Test Item Value Reference Range Interpretation Comments Platelet (test code = Platelet) 136 133-450 [facility] HospitalDzhqljlQPDHHVFLFK7881-41-49 09:49:00 Test Item Value Reference Range Interpretation Comments MPV (test code = MPV) 7.7 7.4-10.4 [place] 963423-02-28 09:49:00 Test Item Value Reference Range Interpretation Comments Segs (test code = Segs) 49.2 45.0-75.0 [place] 963423-02-28 09:49:00 Test Item Value Reference Range Interpretation Comments Lymphocytes (test code = Lymphocytes) 33.0 20.0-40.0 [place] 963423-02-28 09:49:00 Test Item Value Reference Range Interpretation Comments Monocytes (test code = Monocytes) 10.5 2.0-12.0 [place] 963423-02-28 09:49:00 Test Item Value Reference Range Interpretation Comments Eosinophils (test code = 6.6 See_Comment [A utomated message] The Eosinophils) system which ge nerated this result tra nsmitted reference range : <=4.0. The reference r christiano was not used to int erpret this result as normal/abnormal . [place] 963423-02-28 09:49:00 Test Item Value Reference Range Interpretation Comments Basophils (test code = 0.7 See_Comment [Aut omated message] The Basophils) system which ge nerated this result tra nsmitted reference range : <=1.0. The reference r christiano was not used to int erpret this result as normal/abnormal . [place] 963423-02-28 09:49:00 Test Item Value Reference Range Interpretation Comments Neutrophils # (test code = Neutrophils 3.0 1.5-8.1 #) [place] [address]-02-28 09:49:00 Test Item Value Reference Range Interpretation Comments Lymphocytes # (test code = Lymphocytes 2.0 1.0-5.5 #) [place] 963423-02-28 09:49:00 Test Item Value Reference Range Interpretation Comments Monocytes # (test code 0.7 See_Comment [Aut omated message] The = Monocytes #) system which generated this result tra nsmitted reference range : <=0.8. The reference r christiano was not used to int erpret this result as normal/abnormal . [place] 963423-02-28 09:49:00 Test Item Value Reference Range Interpretation Comments Eosinophils # (test code 0.4 See_Comment [A utomated message] The = Eosinophils #) system whic h generated this result tra nsmitted reference range : <=0.5. The reference r christiano was not used to int erpret this result as normal/abnormal . [place] 963423-02-28 09:49:00 Test Item Value Reference Range Interpretation Comments WBC (test code = WBC) 6.2 3.7-10.4 [place] [address]-02-28 09:49:00 Test Item Value Reference Range Interpretation Comments RBC (test code = RBC) 3.06 4.20-5.40 [place] [address]-02-28 09:49:00 Test Item Value Reference Range Interpretation Comments Hgb (test code = Hgb) 9.2 12.0-16.0 [place] [address]-02-28 09:49:00 Test Item Value Reference Range Interpretation Comments Hct (test code = Hct) 28.0 36.0-48.0 [place] [address]-02-28 09:49:00 Test Item Value Reference Range Interpretation Comments MCV (test code = MCV) 91.5 80.0-98.0 [place] [address]-02-28 09:49:00 Test Item Value Reference Range Interpretation Comments MCH (test code = MCH) 30.0 pg 27.0-31.0 [place] [address]-02-28 09:49:00 Test Item Value Reference Range Interpretation Comments MCHC (test code = MCHC) 32.7 32.0-36.0 [place] [address]-02-28 09:49:00 Test Item Value Reference Range Interpretation Comments RDW (test code = RDW) 14.1 11.5-14.5 [place] [address]-02-28 09:49:00 Test Item Value Reference Range Interpretation Comments Platelet (test code = Platelet) 136 133-450 [place] 963423-02-28 09:49:00 Test Item Value Reference Range Interpretation Comments MPV (test code = MPV) 7.7 7.4-10.4 [place] 457353-02-28 09:49:00 Test Item Value Reference Range Interpretation Comments Glucose Lvl (test code = Glucose Lvl) 93 70-99 [place] 457353-02-28 09:49:00 Test Item Value Reference Range Interpretation Comments BUN (test code = BUN) 30 7-22 [place] 457353-02-28 09:49:00 Test Item Value Reference Range Interpretation Comments Creatinine Lvl (test code = Creatinine 2.50 0.50-1.40 Lvl) [place] 457353-02-28 09:49:00 Test Item Value Reference Range Interpretation Comments Sodium Lvl (test code = Sodium Lvl) 138 135-145 [place] 457353-02-28 09:49:00 Test Item Value Reference Range Interpretation Comments Potassium Lvl (test code = Potassium 5.1 3.5-5.1 Lvl) [place] 457353-02-28 09:49:00 Test Item Value Reference Range Interpretation Comments Chloride Lvl (test code = Chloride Lvl) 108 95-109 [place] 457353-02-28 09:49:00 Test Item Value Reference Range Interpretation Comments CO2 (test code = CO2) - [place] 457353-02-28 09:49:00 Test Item Value Reference Range Interpretation Comments Calcium Lvl (test code = Calcium Lvl) 8.0 8.5-10.5 [place] 457353-02-28 09:49:00 Test Item Value Reference Range Interpretation Comments AGAP (test code = AGAP) 5.1 10.0-20.0 [place] 457353-02-28 09:49:00 Test Item Value Reference Range Interpretation Comments eGFR (test code = eGFR) 19 [place] 922233-02-28 09:49:00 Test Item Value Reference Range Interpretation Comments Glucose Lvl (test code = Glucose Lvl) 93 70-99 [place] [address]-02-28 09:49:00 Test Item Value Reference Range Interpretation Comments BUN (test code = BUN) 30 - [place] 922233-02-28 09:49:00 Test Item Value Reference Range Interpretation Comments Creatinine Lvl (test code = Creatinine 2.50 0.50-1.40 Lvl) [facility]OunrpjqQRPUXCMNW2682-84-61 09:49:00 Test Item Value Reference Range Interpretation Comments Sodium Lvl (test code = Sodium Lvl) 138 135-145 [place] 922233-02-28 09:49:00 Test Item Value Reference Range Interpretation Comments Potassium Lvl (test code = Potassium 5.1 3.5-5.1 Lvl) [place] 922233-02-28 09:49:00 Test Item Value Reference Range Interpretation Comments Chloride Lvl (test code = Chloride Lvl) 108 95-109 [place] [address]-02-28 09:49:00 Test Item Value Reference Range Interpretation Comments CO2 (test code = CO2) 30 -32 [place] 922233-02-28 09:49:00 Test Item Value Reference Range Interpretation Comments Calcium Lvl (test code = Calcium Lvl) 8.0 8.5-10.5 [place] 922233-02-28 09:49:00 Test Item Value Reference Range Interpretation Comments AGAP (test code = AGAP) 5.1 10.0-20.0 [place] 922233-02-28 09:49:00 Test Item Value Reference Range Interpretation Comments eGFR (test code = eGFR) 19 [place] 963423-02-28 09:49:00 Test Item Value Reference Range Interpretation Comments Segs (test code = Segs) 49.2 45.0-75.0 [place] 963423-02-28 09:49:00 Test Item Value Reference Range Interpretation Comments Lymphocytes (test code = Lymphocytes) 33.0 20.0-40.0 [place] 963423-02-28 09:49:00 Test Item Value Reference Range Interpretation Comments Monocytes (test code = Monocytes) 10.5 2.0-12.0 [place] 963423-02-28 09:49:00 Test Item Value Reference Range Interpretation Comments Eosinophils (test code = 6.6 See_Comment [A utomated message] The Eosinophils) system which ge nerated this result tra nsmitted reference range : <=4.0. The reference r christiano was not used to int erpret this result as normal/abnormal . [facility]MfvzfzwHSAPNRFDFV7397-29-42 09:49:00 Test Item Value Reference Range Interpretation Comments Basophils (test code = 0.7 See_Comment [Aut omated message] The Basophils) system which ge nerated this result tra nsmitted reference range : <=1.0. The reference r christiano was not used to int erpret this result as normal/abnormal . [place] 963423-02-28 09:49:00 Test Item Value Reference Range Interpretation Comments Neutrophils # (test code = Neutrophils 3.0 1.5-8.1 #) [place] 963423-02-28 09:49:00 Test Item Value Reference Range Interpretation Comments Lymphocytes # (test code = Lymphocytes 2.0 1.0-5.5 #) [place] 963423-02-28 09:49:00 Test Item Value Reference Range Interpretation Comments Monocytes # (test code 0.7 See_Comment [Aut omated message] The = Monocytes #) system which generated this result tra nsmitted reference range : <=0.8. The reference r christiano was not used to int erpret this result as normal/abnormal . [facility] HospitalYybqoopEWZLYZNXCK4756-30-42 09:49:00 Test Item Value Reference Range Interpretation Comments Eosinophils # (test code 0.4 See_Comment [A utomated message] The = Eosinophils #) system whic h generated this result tra nsmitted reference range : <=0.5. The reference r christiano was not used to int erpret this result as normal/abnormal . [facility] HospitalNzeqnhuJZMCZYFIJY0261-38-97 09:49:00 Test Item Value Reference Range Interpretation Comments WBC (test code = WBC) 6.2 3.7-10.4 [facility] HospitalSmjzyvxQCLTMWQFQK2262-50-33 09:49:00 Test Item Value Reference Range Interpretation Comments RBC (test code = RBC) 3.06 4.20-5.40 [facility] HospitalHtinfsyZUTWABQYWQ7353-20-53 09:49:00 Test Item Value Reference Range Interpretation Comments Hgb (test code = Hgb) 9.2 12.0-16.0 [facility] HospitalSidsxcvBFEVGWEIBS1325-94-89 09:49:00 Test Item Value Reference Range Interpretation Comments Hct (test code = Hct) 28.0 36.0-48.0 [facility] HospitalLujtdgcQWHFGDTGTF3272-53-15 09:49:00 Test Item Value Reference Range Interpretation Comments MCV (test code = MCV) 91.5 80.0-98.0 [facility] HospitalStzrtilYACUCOVDRP4618-52-02 09:49:00 Test Item Value Reference Range Interpretation Comments MCH (test code = MCH) 30.0 pg 27.0-31.0 [facility] HospitalDzdruthDDLBXEHBEE7248-05-89 09:49:00 Test Item Value Reference Range Interpretation Comments MCHC (test code = MCHC) 32.7 32.0-36.0 [facility] HospitalNlqpiynLQNHRMOPSU9354-48-60 09:49:00 Test Item Value Reference Range Interpretation Comments RDW (test code = RDW) 14.1 11.5-14.5 [facility] HospitalEnvewycYJSJIFZVAR8575-71-92 09:49:00 Test Item Value Reference Range Interpretation Comments Platelet (test code = Platelet) 136 133-450 [facility] HospitalQgtcxqiGIJDDBWSDO2664-71-11 09:49:00 Test Item Value Reference Range Interpretation Comments MPV (test code = MPV) 7.7 7.4-10.4 [place] [address]-02-28 09:49:00 Test Item Value Reference Range Interpretation Comments Segs (test code = Segs) 49.2 45.0-75.0 [place] [address]-02-28 09:49:00 Test Item Value Reference Range Interpretation Comments Lymphocytes (test code = Lymphocytes) 33.0 20.0-40.0 [place] [address]-02-28 09:49:00 Test Item Value Reference Range Interpretation Comments Monocytes (test code = Monocytes) 10.5 2.0-12.0 [place] [address]-02-28 09:49:00 Test Item Value Reference Range Interpretation Comments Eosinophils (test code = 6.6 See_Comment [A utomated message] The Eosinophils) system which ge nerated this result tra nsmitted reference range : <=4.0. The reference r christiano was not used to int erpret this result as normal/abnormal . [place] [address]-02-28 09:49:00 Test Item Value Reference Range Interpretation Comments Basophils (test code = 0.7 See_Comment [Aut omated message] The Basophils) system which ge nerated this result tra nsmitted reference range : <=1.0. The reference r christiano was not used to int erpret this result as normal/abnormal . [place] [address]-02-28 09:49:00 Test Item Value Reference Range Interpretation Comments Neutrophils # (test code = Neutrophils 3.0 1.5-8.1 #) [place] [address]-02-28 09:49:00 Test Item Value Reference Range Interpretation Comments Lymphocytes # (test code = Lymphocytes 2.0 1.0-5.5 #) [place] [address]-02-28 09:49:00 Test Item Value Reference Range Interpretation Comments Monocytes # (test code 0.7 See_Comment [Aut omated message] The = Monocytes #) system which generated this result tra nsmitted reference range : <=0.8. The reference r christiano was not used to int erpret this result as normal/abnormal . [place] [address]-02-28 09:49:00 Test Item Value Reference Range Interpretation Comments Eosinophils # (test code 0.4 See_Comment [A utomated message] The = Eosinophils #) system whic h generated this result tra nsmitted reference range : <=0.5. The reference r christiano was not used to int erpret this result as normal/abnormal . [facility] HospitalNpuojktQDBQTDPVMV8249-72-08 09:49:00 Test Item Value Reference Range Interpretation Comments WBC (test code = WBC) 6.2 3.7-10.4 [facility] HospitalRimctitYIKSBKSSWG2487-82-11 09:49:00 Test Item Value Reference Range Interpretation Comments RBC (test code = RBC) 3.06 4.20-5.40 [facility] HospitalWrupbomJYPJIJCGOW9951-80-58 09:49:00 Test Item Value Reference Range Interpretation Comments Hgb (test code = Hgb) 9.2 12.0-16.0 [facility] HospitalHiiuhqcHNMKHSRUKD2723-02-10 09:49:00 Test Item Value Reference Range Interpretation Comments Hct (test code = Hct) 28.0 36.0-48.0 [facility] HospitalQuyfbfsBPDSDZTXWX8851-52-38 09:49:00 Test Item Value Reference Range Interpretation Comments MCV (test code = MCV) 91.5 80.0-98.0 [facility] HospitalQeellvkKVINDQFEQA9908-07-87 09:49:00 Test Item Value Reference Range Interpretation Comments MCH (test code = MCH) 30.0 pg 27.0-31.0 [facility] HospitalFqkhcbsLBRHVCYDPK5395-37-25 09:49:00 Test Item Value Reference Range Interpretation Comments MCHC (test code = MCHC) 32.7 32.0-36.0 [facility] HospitalLdzefilTNVLASSZML5079-46-21 09:49:00 Test Item Value Reference Range Interpretation Comments RDW (test code = RDW) 14.1 11.5-14.5 [facility] HospitalEfiacjoCBKTWLPYTI4248-07-98 09:49:00 Test Item Value Reference Range Interpretation Comments Platelet (test code = Platelet) 136 133-450 [facility]bbvbbyVQEOEHVWXF7047-35-43 09:49:00 Test Item Value Reference Range Interpretation Comments MPV (test code = MPV) 7.7 7.4-10.4 [facility]2023-02-28 09:49:00 Test Item Value Reference Range Interpretation Comments Glucose Lvl (test code = Glucose Lvl) 93 70-99 [facility]2023-02-28 09:49:00 Test Item Value Reference Range Interpretation Comments BUN (test code = BUN) 30 - [place] 457353-02-28 09:49:00 Test Item Value Reference Range Interpretation Comments Creatinine Lvl (test code = Creatinine 2.50 0.50-1.40 Lvl) [place] 457353-02-28 09:49:00 Test Item Value Reference Range Interpretation Comments Sodium Lvl (test code = Sodium Lvl) 138 135-145 [place] 457353-02-28 09:49:00 Test Item Value Reference Range Interpretation Comments Potassium Lvl (test code = Potassium 5.1 3.5-5.1 Lvl) [place] 457353-02-28 09:49:00 Test Item Value Reference Range Interpretation Comments Chloride Lvl (test code = Chloride Lvl) 108 95-109 [place] 457353-02-28 09:49:00 Test Item Value Reference Range Interpretation Comments CO2 (test code = CO2) 30 - [place] 457353-02-28 09:49:00 Test Item Value Reference Range Interpretation Comments Calcium Lvl (test code = Calcium Lvl) 8.0 8.5-10.5 [facility]2023-02-28 09:49:00 Test Item Value Reference Range Interpretation Comments AGAP (test code = AGAP) 5.1 10.0-20.0 [place] 457353-02-28 09:49:00 Test Item Value Reference Range Interpretation Comments eGFR (test code = eGFR) 19 [place] 922233-02-28 09:49:00 Test Item Value Reference Range Interpretation Comments Glucose Lvl (test code = Glucose Lvl) 93 70-99 [place] [address]-02-28 09:49:00 Test Item Value Reference Range Interpretation Comments BUN (test code = BUN) 30 - [place] 922233-02-28 09:49:00 Test Item Value Reference Range Interpretation Comments Creatinine Lvl (test code = Creatinine 2.50 0.50-1.40 Lvl) [facility]WopoivlWFVDHQBQA8601-09-21 09:49:00 Test Item Value Reference Range Interpretation Comments Sodium Lvl (test code = Sodium Lvl) 138 135-145 [facility] TexasVjqauxhWXIMXTPLU7559-72-86 09:49:00 Test Item Value Reference Range Interpretation Comments Potassium Lvl (test code = Potassium 5.1 3.5-5.1 Lvl) [facility] [facility]MoksrmdJOFENIYBT3027-36-62 09:49:00 Test Item Value Reference Range Interpretation Comments Chloride Lvl (test code = Chloride Lvl) 108 95-109 [facility] TexasLzbqfrrVZLYYONNY6546-14-78 09:49:00 Test Item Value Reference Range Interpretation Comments CO2 (test code = CO2) 30 24-32 [place] 922233-02-28 09:49:00 Test Item Value Reference Range Interpretation Comments Calcium Lvl (test code = Calcium Lvl) 8.0 8.5-10.5 [facility] TexasFlhiarsGBGLGDCWE9761-95-94 09:49:00 Test Item Value Reference Range Interpretation Comments AGAP (test code = AGAP) 5.1 10.0-20.0 [facility] TexasDqnommqTWYOCPELP6614-75-53 09:49:00 Test Item Value Reference Range Interpretation Comments eGFR (test code = eGFR) 19 [facility]SolwzdjLWLASRNQFA0876-27-66 09:49:00 Test Item Value Reference Range Interpretation Comments Segs (test code = Segs) 49.2 45.0-75.0 [facility] HospitalTsmrxmsQXUZWLLWCW3660-31-34 09:49:00 Test Item Value Reference Range Interpretation Comments Lymphocytes (test code = Lymphocytes) 33.0 20.0-40.0 [facility] HospitalBhlugvvASABUCTWJQ2423-47-03 09:49:00 Test Item Value Reference Range Interpretation Comments Monocytes (test code = Monocytes) 10.5 2.0-12.0 [place] [address]-02-28 09:49:00 Test Item Value Reference Range Interpretation Comments Eosinophils (test code = 6.6 See_Comment [A utomated message] The Eosinophils) system which ge nerated this result tra nsmitted reference range : <=4.0. The reference r christiano was not used to int erpret this result as normal/abnormal . [facility] HospitalYytkaviLMVIUWDXZT2286-40-42 09:49:00 Test Item Value Reference Range Interpretation Comments Basophils (test code = 0.7 See_Comment [Aut omated message] The Basophils) system which ge nerated this result tra nsmitted reference range : <=1.0. The reference r christiano was not used to int erpret this result as normal/abnormal . [facility] HospitalSnbhsbsVLYLILLOLQ6093-81-83 09:49:00 Test Item Value Reference Range Interpretation Comments Neutrophils # (test code = Neutrophils 3.0 1.5-8.1 #) [facility] HospitalBzbjsisAZZDHJIRWN2327-74-51 09:49:00 Test Item Value Reference Range Interpretation Comments Lymphocytes # (test code = Lymphocytes 2.0 1.0-5.5 #) [place] 963423-02-28 09:49:00 Test Item Value Reference Range Interpretation Comments Monocytes # (test code 0.7 See_Comment [Aut omated message] The = Monocytes #) system which generated this result tra nsmitted reference range : <=0.8. The reference r christiano was not used to int erpret this result as normal/abnormal . [place] [address]-02-28 09:49:00 Test Item Value Reference Range Interpretation Comments Eosinophils # (test code 0.4 See_Comment [A utomated message] The = Eosinophils #) system whic h generated this result tra nsmitted reference range : <=0.5. The reference r christiano was not used to int erpret this result as normal/abnormal . [facility] HospitalJladcskNDYDYWBPEB0908-95-29 09:49:00 Test Item Value Reference Range Interpretation Comments WBC (test code = WBC) 6.2 3.7-10.4 [place] 963423-02-28 09:49:00 Test Item Value Reference Range Interpretation Comments RBC (test code = RBC) 3.06 4.20-5.40 [place] [address]-02-28 09:49:00 Test Item Value Reference Range Interpretation Comments Hgb (test code = Hgb) 9.2 12.0-16.0 [place] [address]-02-28 09:49:00 Test Item Value Reference Range Interpretation Comments Hct (test code = Hct) 28.0 36.0-48.0 [place] [address]-02-28 09:49:00 Test Item Value Reference Range Interpretation Comments MCV (test code = MCV) 91.5 80.0-98.0 [place] [address]-02-28 09:49:00 Test Item Value Reference Range Interpretation Comments MCH (test code = MCH) 30.0 pg 27.0-31.0 [place] 963423-02-28 09:49:00 Test Item Value Reference Range Interpretation Comments MCHC (test code = MCHC) 32.7 32.0-36.0 [place] 963423-02-28 09:49:00 Test Item Value Reference Range Interpretation Comments RDW (test code = RDW) 14.1 11.5-14.5 [place] 963423-02-28 09:49:00 Test Item Value Reference Range Interpretation Comments Platelet (test code = Platelet) 136 133-450 [place] 963423-02-28 09:49:00 Test Item Value Reference Range Interpretation Comments MPV (test code = MPV) 7.7 7.4-10.4 [place] 963423-02-28 09:49:00 Test Item Value Reference Range Interpretation Comments Segs (test code = Segs) 49.2 45.0-75.0 [place] 963423-02-28 09:49:00 Test Item Value Reference Range Interpretation Comments Lymphocytes (test code = Lymphocytes) 33.0 20.0-40.0 [place] 963423-02-28 09:49:00 Test Item Value Reference Range Interpretation Comments Monocytes (test code = Monocytes) 10.5 2.0-12.0 [place] 963423-02-28 09:49:00 Test Item Value Reference Range Interpretation Comments Eosinophils (test code = 6.6 See_Comment [A utomated message] The Eosinophils) system which ge nerated this result tra nsmitted reference range : <=4.0. The reference r christiano was not used to int erpret this result as normal/abnormal . [facility] HospitalGlnfognRSUCQFLSBN6969-71-68 09:49:00 Test Item Value Reference Range Interpretation Comments Basophils (test code = 0.7 See_Comment [Aut omated message] The Basophils) system which ge nerated this result tra nsmitted reference range : <=1.0. The reference r christiano was not used to int erpret this result as normal/abnormal . [place] 963423-02-28 09:49:00 Test Item Value Reference Range Interpretation Comments Neutrophils # (test code = Neutrophils 3.0 1.5-8.1 #) [facility] HospitalRaewmsbLTXNMYFKOP0426-93-13 09:49:00 Test Item Value Reference Range Interpretation Comments Lymphocytes # (test code = Lymphocytes 2.0 1.0-5.5 #) [place] 963423-02-28 09:49:00 Test Item Value Reference Range Interpretation Comments Monocytes # (test code 0.7 See_Comment [Aut omated message] The = Monocytes #) system which generated this result tra nsmitted reference range : <=0.8. The reference r christiano was not used to int erpret this result as normal/abnormal . [place] 963423-02-28 09:49:00 Test Item Value Reference Range Interpretation Comments Eosinophils # (test code 0.4 See_Comment [A utomated message] The = Eosinophils #) system whic h generated this result tra nsmitted reference range : <=0.5. The reference r christiano was not used to int erpret this result as normal/abnormal . [facility] HospitalWorvsnkTCNRIKJBUS2672-46-08 09:49:00 Test Item Value Reference Range Interpretation Comments WBC (test code = WBC) 6.2 3.7-10.4 [place] [address]-02-28 09:49:00 Test Item Value Reference Range Interpretation Comments RBC (test code = RBC) 3.06 4.20-5.40 [place] [address]-02-28 09:49:00 Test Item Value Reference Range Interpretation Comments Hgb (test code = Hgb) 9.2 12.0-16.0 [place] [address]-02-28 09:49:00 Test Item Value Reference Range Interpretation Comments Hct (test code = Hct) 28.0 36.0-48.0 [place] [address]-02-28 09:49:00 Test Item Value Reference Range Interpretation Comments MCV (test code = MCV) 91.5 80.0-98.0 [place] [address]-02-28 09:49:00 Test Item Value Reference Range Interpretation Comments MCH (test code = MCH) 30.0 pg 27.0-31.0 [place] [address]-02-28 09:49:00 Test Item Value Reference Range Interpretation Comments MCHC (test code = MCHC) 32.7 32.0-36.0 [address]02-28 09:49:00 Test Item Value Reference Range Interpretation Comments RDW (test code = RDW) 14.1 11.5-14.5 [place] [address]-02-28 09:49:00 Test Item Value Reference Range Interpretation Comments Platelet (test code = Platelet) 136 133-450 [place] [address]-02-28 09:49:00 Test Item Value Reference Range Interpretation Comments MPV (test code = MPV) 7.7 7.4-10.4 [place] [address]-02-28 09:49:00 Test Item Value Reference Range Interpretation Comments Glucose Lvl (test code = Glucose Lvl) 93 70-99 [place] [address]-02-28 09:49:00 Test Item Value Reference Range Interpretation Comments BUN (test code = BUN) 30 7-22 [place] 457353-02-28 09:49:00 Test Item Value Reference Range Interpretation Comments Creatinine Lvl (test code = Creatinine 2.50 0.50-1.40 Lvl) [place] [address]-02-28 09:49:00 Test Item Value Reference Range Interpretation Comments Sodium Lvl (test code = Sodium Lvl) 138 135-145 [place] 457353-02-28 09:49:00 Test Item Value Reference Range Interpretation Comments Potassium Lvl (test code = Potassium 5.1 3.5-5.1 Lvl) [place] 457353-02-28 09:49:00 Test Item Value Reference Range Interpretation Comments Chloride Lvl (test code = Chloride Lvl) 108 95-109 [place] [address]-02-28 09:49:00 Test Item Value Reference Range Interpretation Comments CO2 (test code = CO2) 30 24-32 [place] 457353-02-28 09:49:00 Test Item Value Reference Range Interpretation Comments Calcium Lvl (test code = Calcium Lvl) 8.0 8.5-10.5 [place] 457353-02-28 09:49:00 Test Item Value Reference Range Interpretation Comments AGAP (test code = AGAP) 5.1 10.0-20.0 [place] 457353-02-28 09:49:00 Test Item Value Reference Range Interpretation Comments eGFR (test code = eGFR) 19 [facility] TexasSfrcpxrFSPBMSKAP4167-23-07 09:49:00 Test Item Value Reference Range Interpretation Comments Glucose Lvl (test code = Glucose Lvl) 93 70-99 [place] 922233-02-28 09:49:00 Test Item Value Reference Range Interpretation Comments BUN (test code = BUN) 30 7-22 [facility] TexasEywabmzWCMYSMTCU8389-12-30 09:49:00 Test Item Value Reference Range Interpretation Comments Creatinine Lvl (test code = Creatinine 2.50 0.50-1.40 Lvl) [facility] TexasAaotezpVCBVQEYOH7758-31-60 09:49:00 Test Item Value Reference Range Interpretation Comments Sodium Lvl (test code = Sodium Lvl) 138 135-145 [place] 922233-02-28 09:49:00 Test Item Value Reference Range Interpretation Comments Potassium Lvl (test code = Potassium 5.1 3.5-5.1 Lvl) [facility] TexasSevfwzyGIRMZAIBS9889-45-38 09:49:00 Test Item Value Reference Range Interpretation Comments Chloride Lvl (test code = Chloride Lvl) 108 95-109 [facility] TexasZfcvzprPHKFXLVZS1812-79-28 09:49:00 Test Item Value Reference Range Interpretation Comments CO2 (test code = CO2) 30 24-32 [facility] TexasOawrnxkUFRSTUVWE2332-23-08 09:49:00 Test Item Value Reference Range Interpretation Comments Calcium Lvl (test code = Calcium Lvl) 8.0 8.5-10.5 [facility] TexasSkfcnolMHLPGUMSO2031-32-58 09:49:00 Test Item Value Reference Range Interpretation Comments AGAP (test code = AGAP) 5.1 10.0-20.0 [facility] TexasMleexumSGIAKDESB4548-18-26 09:49:00 Test Item Value Reference Range Interpretation Comments eGFR (test code = eGFR) 19 [facility] HospitalAlwdrdtPFQUZZHKJK7272-42-62 09:49:00 Test Item Value Reference Range Interpretation Comments Segs (test code = Segs) 49.2 45.0-75.0 [place] 963423-02-28 09:49:00 Test Item Value Reference Range Interpretation Comments Lymphocytes (test code = Lymphocytes) 33.0 20.0-40.0 [place] 963423-02-28 09:49:00 Test Item Value Reference Range Interpretation Comments Monocytes (test code = Monocytes) 10.5 2.0-12.0 [place] 963423-02-28 09:49:00 Test Item Value Reference Range Interpretation Comments Eosinophils (test code = 6.6 See_Comment [A utomated message] The Eosinophils) system which ge nerated this result tra nsmitted reference range : <=4.0. The reference r christiano was not used to int erpret this result as normal/abnormal . [place] 963423-02-28 09:49:00 Test Item Value Reference Range Interpretation Comments Basophils (test code = 0.7 See_Comment [Aut omated message] The Basophils) system which ge nerated this result tra nsmitted reference range : <=1.0. The reference r christiano was not used to int erpret this result as normal/abnormal . [place] 963423-02-28 09:49:00 Test Item Value Reference Range Interpretation Comments Neutrophils # (test code = Neutrophils 3.0 1.5-8.1 #) [place] [address]-02-28 09:49:00 Test Item Value Reference Range Interpretation Comments Lymphocytes # (test code = Lymphocytes 2.0 1.0-5.5 #) [place] [address]-02-28 09:49:00 Test Item Value Reference Range Interpretation Comments Monocytes # (test code 0.7 See_Comment [Aut omated message] The = Monocytes #) system which generated this result tra nsmitted reference range : <=0.8. The reference r christiano was not used to int erpret this result as normal/abnormal . [place] 963423-02-28 09:49:00 Test Item Value Reference Range Interpretation Comments Eosinophils # (test code 0.4 See_Comment [A utomated message] The = Eosinophils #) system whic h generated this result tra nsmitted reference range : <=0.5. The reference r christiano was not used to int erpret this result as normal/abnormal . [facility] HospitalShjhsjgTFTRKEOCQO2489-04-76 09:49:00 Test Item Value Reference Range Interpretation Comments WBC (test code = WBC) 6.2 3.7-10.4 [place] 963423-02-28 09:49:00 Test Item Value Reference Range Interpretation Comments RBC (test code = RBC) 3.06 4.20-5.40 [facility] HospitalNzxnfisUZILRUMOHT7104-44-95 09:49:00 Test Item Value Reference Range Interpretation Comments Hgb (test code = Hgb) 9.2 12.0-16.0 [facility] HospitalYjppcdaDUIERVAKCC7528-56-02 09:49:00 Test Item Value Reference Range Interpretation Comments Hct (test code = Hct) 28.0 36.0-48.0 [facility] HospitalPpvdqznIVFILISSTE3118-01-91 09:49:00 Test Item Value Reference Range Interpretation Comments MCV (test code = MCV) 91.5 80.0-98.0 [place] 963423-02-28 09:49:00 Test Item Value Reference Range Interpretation Comments MCH (test code = MCH) 30.0 pg 27.0-31.0 [facility] HospitalEfewpvyNTTRHYTFEO4862-38-87 09:49:00 Test Item Value Reference Range Interpretation Comments MCHC (test code = MCHC) 32.7 32.0-36.0 [facility] HospitalNuxruehVKDHVUOYSO9152-95-93 09:49:00 Test Item Value Reference Range Interpretation Comments RDW (test code = RDW) 14.1 11.5-14.5 [facility] HospitalSoabnplSTIYXCAUOR2577-45-33 09:49:00 Test Item Value Reference Range Interpretation Comments Platelet (test code = Platelet) 136 133-450 [facility] HospitalOxrsasrCQQKHJFSUH1295-69-62 09:49:00 Test Item Value Reference Range Interpretation Comments MPV (test code = MPV) 7.7 7.4-10.4 [place] 963423-02-28 09:49:00 Test Item Value Reference Range Interpretation Comments Segs (test code = Segs) 49.2 45.0-75.0 [place] 963423-02-28 09:49:00 Test Item Value Reference Range Interpretation Comments Lymphocytes (test code = Lymphocytes) 33.0 20.0-40.0 [place] 963423-02-28 09:49:00 Test Item Value Reference Range Interpretation Comments Monocytes (test code = Monocytes) 10.5 2.0-12.0 [facility] HospitalXxinoewFIOEJVLFIO5869-07-94 09:49:00 Test Item Value Reference Range Interpretation Comments Eosinophils (test code = 6.6 See_Comment [A utomated message] The Eosinophils) system which ge nerated this result tra nsmitted reference range : <=4.0. The reference r christiano was not used to int erpret this result as normal/abnormal . [facility] HospitalFmtndjwFTQNTVQVNK5512-23-09 09:49:00 Test Item Value Reference Range Interpretation Comments Basophils (test code = 0.7 See_Comment [Aut omated message] The Basophils) system which ge nerated this result tra nsmitted reference range : <=1.0. The reference r christiano was not used to int erpret this result as normal/abnormal . [facility] HospitalOkrvzpmFZLTIKFRJO2520-89-36 09:49:00 Test Item Value Reference Range Interpretation Comments Neutrophils # (test code = Neutrophils 3.0 1.5-8.1 #) [facility] HospitalQxkmrroHYFWSHXZVR7827-06-03 09:49:00 Test Item Value Reference Range Interpretation Comments Lymphocytes # (test code = Lymphocytes 2.0 1.0-5.5 #) [place] 963423-02-28 09:49:00 Test Item Value Reference Range Interpretation Comments Monocytes # (test code 0.7 See_Comment [Aut omated message] The = Monocytes #) system which generated this result tra nsmitted reference range : <=0.8. The reference r christiano was not used to int erpret this result as normal/abnormal . [facility] HospitalOkyzeauXQDTWVDVXT5295-47-27 09:49:00 Test Item Value Reference Range Interpretation Comments Eosinophils # (test code 0.4 See_Comment [A utomated message] The = Eosinophils #) system whic h generated this result tra nsmitted reference range : <=0.5. The reference r christiano was not used to int erpret this result as normal/abnormal . [facility] HospitalQxgkidgXKINTDIDXV3776-93-70 09:49:00 Test Item Value Reference Range Interpretation Comments WBC (test code = WBC) 6.2 3.7-10.4 [place] [address]-02-28 09:49:00 Test Item Value Reference Range Interpretation Comments RBC (test code = RBC) 3.06 4.20-5.40 [place] [address]-02-28 09:49:00 Test Item Value Reference Range Interpretation Comments Hgb (test code = Hgb) 9.2 12.0-16.0 [place] [address]-02-28 09:49:00 Test Item Value Reference Range Interpretation Comments Hct (test code = Hct) 28.0 36.0-48.0 [place] [address]-02-28 09:49:00 Test Item Value Reference Range Interpretation Comments MCV (test code = MCV) 91.5 80.0-98.0 [place] [address]-02-28 09:49:00 Test Item Value Reference Range Interpretation Comments MCH (test code = MCH) 30.0 pg 27.0-31.0 [place] [address]-02-28 09:49:00 Test Item Value Reference Range Interpretation Comments MCHC (test code = MCHC) 32.7 32.0-36.0 [place] [address]-02-28 09:49:00 Test Item Value Reference Range Interpretation Comments RDW (test code = RDW) 14.1 11.5-14.5 [place] [address]-02-28 09:49:00 Test Item Value Reference Range Interpretation Comments Platelet (test code = Platelet) 136 133-450 [place] [address]-02-28 09:49:00 Test Item Value Reference Range Interpretation Comments MPV (test code = MPV) 7.7 7.4-10.4 [place] 457353-02-28 09:49:00 Test Item Value Reference Range Interpretation Comments Glucose Lvl (test code = Glucose Lvl) 93 70-99 [place] 457353-02-28 09:49:00 Test Item Value Reference Range Interpretation Comments BUN (test code = BUN) 30 7-22 [place] 457353-02-28 09:49:00 Test Item Value Reference Range Interpretation Comments Creatinine Lvl (test code = Creatinine 2.50 0.50-1.40 Lvl) [place] 457353-02-28 09:49:00 Test Item Value Reference Range Interpretation Comments Sodium Lvl (test code = Sodium Lvl) 138 135-145 [place] 457353-02-28 09:49:00 Test Item Value Reference Range Interpretation Comments Potassium Lvl (test code = Potassium 5.1 3.5-5.1 Lvl) [place] 457353-02-28 09:49:00 Test Item Value Reference Range Interpretation Comments Chloride Lvl (test code = Chloride Lvl) 108 95-109 [facility]2023-02-28 09:49:00 Test Item Value Reference Range Interpretation Comments CO2 (test code = CO2) 30 -32 [place] 457353-02-28 09:49:00 Test Item Value Reference Range Interpretation Comments Calcium Lvl (test code = Calcium Lvl) 8.0 8.5-10.5 [place] 457353-02-28 09:49:00 Test Item Value Reference Range Interpretation Comments AGAP (test code = AGAP) 5.1 10.0-20.0 [place] 457353-02-28 09:49:00 Test Item Value Reference Range Interpretation Comments eGFR (test code = eGFR) 19 [facility] TexasGsaonycFNZLVHEBH4627-42-85 09:49:00 Test Item Value Reference Range Interpretation Comments Glucose Lvl (test code = Glucose Lvl) 93 70-99 [facility] TexasUziyovgADTQKVGLD4885-78-85 09:49:00 Test Item Value Reference Range Interpretation Comments BUN (test code = BUN) 30 7- [facility] TexasSwcehcyDDZMGEJIW0173-71-82 09:49:00 Test Item Value Reference Range Interpretation Comments Creatinine Lvl (test code = Creatinine 2.50 0.50-1.40 Lvl) [facility] TexasPpzszmaFAHGBIYOR1262-00-21 09:49:00 Test Item Value Reference Range Interpretation Comments Sodium Lvl (test code = Sodium Lvl) 138 135-145 [facility] TexasHewtcjwOXVGDUWMW6423-23-41 09:49:00 Test Item Value Reference Range Interpretation Comments Potassium Lvl (test code = Potassium 5.1 3.5-5.1 Lvl) [facility] TexasBskzpmgWDWHKZOXN9936-07-59 09:49:00 Test Item Value Reference Range Interpretation Comments Chloride Lvl (test code = Chloride Lvl) 108 95-109 [place] 922233-02-28 09:49:00 Test Item Value Reference Range Interpretation Comments CO2 (test code = CO2) 30 24-32 [facility] TexasDprdzupXRCSXEEQD8936-29-49 09:49:00 Test Item Value Reference Range Interpretation Comments Calcium Lvl (test code = Calcium Lvl) 8.0 8.5-10.5 [place] 922233-02-28 09:49:00 Test Item Value Reference Range Interpretation Comments AGAP (test code = AGAP) 5.1 10.0-20.0 [place] [address]-02-28 09:49:00 Test Item Value Reference Range Interpretation Comments eGFR (test code = eGFR) 19 [facility] HospitalBwufnsrLUBBXKEHMM4916-61-22 09:49:00 Test Item Value Reference Range Interpretation Comments Segs (test code = Segs) 49.2 45.0-75.0 [place] 963423-02-28 09:49:00 Test Item Value Reference Range Interpretation Comments Lymphocytes (test code = Lymphocytes) 33.0 20.0-40.0 [place] [address]-02-28 09:49:00 Test Item Value Reference Range Interpretation Comments Monocytes (test code = Monocytes) 10.5 2.0-12.0 [place] [address]-02-28 09:49:00 Test Item Value Reference Range Interpretation Comments Eosinophils (test code = 6.6 See_Comment [A utomated message] The Eosinophils) system which ge nerated this result tra nsmitted reference range : <=4.0. The reference r christiano was not used to int erpret this result as normal/abnormal . [facility] HospitalTtvojdyQOUUAKLYRY7934-01-22 09:49:00 Test Item Value Reference Range Interpretation Comments Basophils (test code = 0.7 See_Comment [Aut omated message] The Basophils) system which ge nerated this result tra nsmitted reference range : <=1.0. The reference r christiano was not used to int erpret this result as normal/abnormal . [facility] HospitalZpjwoamMCWHQBIYQZ7652-63-53 09:49:00 Test Item Value Reference Range Interpretation Comments Neutrophils # (test code = Neutrophils 3.0 1.5-8.1 #) [place] 963423-02-28 09:49:00 Test Item Value Reference Range Interpretation Comments Lymphocytes # (test code = Lymphocytes 2.0 1.0-5.5 #) [place] [address]-02-28 09:49:00 Test Item Value Reference Range Interpretation Comments Monocytes # (test code 0.7 See_Comment [Aut omated message] The = Monocytes #) system which generated this result tra nsmitted reference range : <=0.8. The reference r christiano was not used to int erpret this result as normal/abnormal . [place] 963423-02-28 09:49:00 Test Item Value Reference Range Interpretation Comments Eosinophils # (test code 0.4 See_Comment [A utomated message] The = Eosinophils #) system whic h generated this result tra nsmitted reference range : <=0.5. The reference r christiano was not used to int erpret this result as normal/abnormal . [facility] HospitalGmojrcmFNKXGDMXRA2857-26-36 09:49:00 Test Item Value Reference Range Interpretation Comments WBC (test code = WBC) 6.2 3.7-10.4 [place] 963423-02-28 09:49:00 Test Item Value Reference Range Interpretation Comments RBC (test code = RBC) 3.06 4.20-5.40 [place] 963423-02-28 09:49:00 Test Item Value Reference Range Interpretation Comments Hgb (test code = Hgb) 9.2 12.0-16.0 [place] [address]-02-28 09:49:00 Test Item Value Reference Range Interpretation Comments Hct (test code = Hct) 28.0 36.0-48.0 [place] 963423-02-28 09:49:00 Test Item Value Reference Range Interpretation Comments MCV (test code = MCV) 91.5 80.0-98.0 [place] 963423-02-28 09:49:00 Test Item Value Reference Range Interpretation Comments MCH (test code = MCH) 30.0 pg 27.0-31.0 [facility] HospitalXvalmysPBGLKRQDBB7143-64-37 09:49:00 Test Item Value Reference Range Interpretation Comments MCHC (test code = MCHC) 32.7 32.0-36.0 [place] 963423-02-28 09:49:00 Test Item Value Reference Range Interpretation Comments RDW (test code = RDW) 14.1 11.5-14.5 [place] 963423-02-28 09:49:00 Test Item Value Reference Range Interpretation Comments Platelet (test code = Platelet) 136 133-450 [place] 963423-02-28 09:49:00 Test Item Value Reference Range Interpretation Comments MPV (test code = MPV) 7.7 7.4-10.4 [place] 963423-02-28 09:49:00 Test Item Value Reference Range Interpretation Comments Segs (test code = Segs) 49.2 45.0-75.0 [place] [address]-02-28 09:49:00 Test Item Value Reference Range Interpretation Comments Lymphocytes (test code = Lymphocytes) 33.0 20.0-40.0 [place] [address]-02-28 09:49:00 Test Item Value Reference Range Interpretation Comments Monocytes (test code = Monocytes) 10.5 2.0-12.0 [place] [address]-02-28 09:49:00 Test Item Value Reference Range Interpretation Comments Eosinophils (test code = 6.6 See_Comment [A utomated message] The Eosinophils) system which ge nerated this result tra nsmitted reference range : <=4.0. The reference r christiano was not used to int erpret this result as normal/abnormal . [place] [address]-02-28 09:49:00 Test Item Value Reference Range Interpretation Comments Basophils (test code = 0.7 See_Comment [Aut omated message] The Basophils) system which ge nerated this result tra nsmitted reference range : <=1.0. The reference r christiano was not used to int erpret this result as normal/abnormal . [place] 963423-02-28 09:49:00 Test Item Value Reference Range Interpretation Comments Neutrophils # (test code = Neutrophils 3.0 1.5-8.1 #) [place] [address]-02-28 09:49:00 Test Item Value Reference Range Interpretation Comments Lymphocytes # (test code = Lymphocytes 2.0 1.0-5.5 #) [place] [address]-02-28 09:49:00 Test Item Value Reference Range Interpretation Comments Monocytes # (test code 0.7 See_Comment [Aut omated message] The = Monocytes #) system which generated this result tra nsmitted reference range : <=0.8. The reference r christiano was not used to int erpret this result as normal/abnormal . [place] 963423-02-28 09:49:00 Test Item Value Reference Range Interpretation Comments Eosinophils # (test code 0.4 See_Comment [A utomated message] The = Eosinophils #) system wh h generated this result tra nsmitted reference range : <=0.5. The reference r christiano was not used to int erpret this result as normal/abnormal . [place] 963423-02-28 09:49:00 Test Item Value Reference Range Interpretation Comments WBC (test code = WBC) 6.2 3.7-10.4 [place] 963423-02-28 09:49:00 Test Item Value Reference Range Interpretation Comments RBC (test code = RBC) 3.06 4.20-5.40 [place] [address]-02-28 09:49:00 Test Item Value Reference Range Interpretation Comments Hgb (test code = Hgb) 9.2 12.0-16.0 [place] [address]-02-28 09:49:00 Test Item Value Reference Range Interpretation Comments Hct (test code = Hct) 28.0 36.0-48.0 [place] [address]-02-28 09:49:00 Test Item Value Reference Range Interpretation Comments MCV (test code = MCV) 91.5 80.0-98.0 [place] [address]-02-28 09:49:00 Test Item Value Reference Range Interpretation Comments MCH (test code = MCH) 30.0 pg 27.0-31.0 [place] 963423-02-28 09:49:00 Test Item Value Reference Range Interpretation Comments MCHC (test code = MCHC) 32.7 32.0-36.0 [facility]PNKA8335[facility]21-62 09:49:00 Test Item Value Reference Range Interpretation Comments RDW (test code = RDW) 14.1 11.5-14.5 [place] 963423-02-28 09:49:00 Test Item Value Reference Range Interpretation Comments Platelet (test code = Platelet) 136 133-450 [place] 963423-02-28 09:49:00 Test Item Value Reference Range Interpretation Comments MPV (test code = MPV) 7.7 7.4-10.4 [place] 457353-02-28 09:49:00 Test Item Value Reference Range Interpretation Comments Glucose Lvl (test code = Glucose Lvl) 93 70-99 [place] 457353-02-28 09:49:00 Test Item Value Reference Range Interpretation Comments BUN (test code = BUN) 30 7-22 [place] 457353-02-28 09:49:00 Test Item Value Reference Range Interpretation Comments Creatinine Lvl (test code = Creatinine 2.50 0.50-1.40 Lvl) [place] 457353-02-28 09:49:00 Test Item Value Reference Range Interpretation Comments Sodium Lvl (test code = Sodium Lvl) 138 135-145 [place] 457353-02-28 09:49:00 Test Item Value Reference Range Interpretation Comments Potassium Lvl (test code = Potassium 5.1 3.5-5.1 Lvl) [place] 457353-02-28 09:49:00 Test Item Value Reference Range Interpretation Comments Chloride Lvl (test code = Chloride Lvl) 108 95-109 [place] 457353-02-28 09:49:00 Test Item Value Reference Range Interpretation Comments CO2 (test code = CO2) 30 24-32 [place] 457353-02-28 09:49:00 Test Item Value Reference Range Interpretation Comments Calcium Lvl (test code = Calcium Lvl) 8.0 8.5-10.5 [place] 457353-02-28 09:49:00 Test Item Value Reference Range Interpretation Comments AGAP (test code = AGAP) 5.1 10.0-20.0 [place] 457353-02-28 09:49:00 Test Item Value Reference Range Interpretation Comments eGFR (test code = eGFR) 19 [place] [address]-02-28 09:49:00 Test Item Value Reference Range Interpretation Comments Glucose Lvl (test code = Glucose Lvl) 93 70-99 [place] [address]-02-28 09:49:00 Test Item Value Reference Range Interpretation Comments BUN (test code = BUN) 30 7-22 [place] [address]-02-28 09:49:00 Test Item Value Reference Range Interpretation Comments Creatinine Lvl (test code = Creatinine 2.50 0.50-1.40 Lvl) [place] [address]-02-28 09:49:00 Test Item Value Reference Range Interpretation Comments Sodium Lvl (test code = Sodium Lvl) 138 135-145 [place] [address]-02-28 09:49:00 Test Item Value Reference Range Interpretation Comments Potassium Lvl (test code = Potassium 5.1 3.5-5.1 Lvl) [facility]DJM[facility]OVWI7532-19-22 09:49:00 Test Item Value Reference Range Interpretation Comments Chloride Lvl (test code = Chloride Lvl) 108 95-109 [place] 922233-02-28 09:49:00 Test Item Value Reference Range Interpretation Comments CO2 (test code = CO2) 30 24-32 [facility]CnohokyKRDAJXTWU3104-31-36 09:49:00 Test Item Value Reference Range Interpretation Comments Calcium Lvl (test code = Calcium Lvl) 8.0 8.5-10.5 [facility] TexasFylkfimMBQZMXHJH6735-40-00 09:49:00 Test Item Value Reference Range Interpretation Comments AGAP (test code = AGAP) 5.1 10.0-20.0 [place] 922233-02-28 09:49:00 Test Item Value Reference Range Interpretation Comments eGFR (test code = eGFR) 19 [facility]HosvkjyEFCMZUJIFJ6873-50-99 09:49:00 Test Item Value Reference Range Interpretation Comments Segs (test code = Segs) 49.2 45.0-75.0 [facility] HospitalBqrmmxtTMPTAESDPK0297-42-74 09:49:00 Test Item Value Reference Range Interpretation Comments Lymphocytes (test code = Lymphocytes) 33.0 20.0-40.0 [facility] HospitalOtpbbloZKVYSOLPZA9427-46-26 09:49:00 Test Item Value Reference Range Interpretation Comments Monocytes (test code = Monocytes) 10.5 2.0-12.0 [facility] HospitalBtgvhgqZDUAXMDISA2285-45-98 09:49:00 Test Item Value Reference Range Interpretation Comments Eosinophils (test code = 6.6 See_Comment [A utomated message] The Eosinophils) system which ge nerated this result tra nsmitted reference range : <=4.0. The reference r christiano was not used to int erpret this result as normal/abnormal . [facility] HospitalGivmczvPYZIKZVKZB4629-34-34 09:49:00 Test Item Value Reference Range Interpretation Comments Basophils (test code = 0.7 See_Comment [Aut omated message] The Basophils) system which ge nerated this result tra nsmitted reference range : <=1.0. The reference r christiano was not used to int erpret this result as normal/abnormal . [facility] HospitalPcjzvkwVVQLVZASVT3456-81-44 09:49:00 Test Item Value Reference Range Interpretation Comments Neutrophils # (test code = Neutrophils 3.0 1.5-8.1 #) [place] 963423-02-28 09:49:00 Test Item Value Reference Range Interpretation Comments Lymphocytes # (test code = Lymphocytes 2.0 1.0-5.5 #) [place] 963423-02-28 09:49:00 Test Item Value Reference Range Interpretation Comments Monocytes # (test code 0.7 See_Comment [Aut omated message] The = Monocytes #) system which generated this result tra nsmitted reference range : <=0.8. The reference r christiano was not used to int erpret this result as normal/abnormal . [place] 963423-02-28 09:49:00 Test Item Value Reference Range Interpretation Comments Eosinophils # (test code 0.4 See_Comment [A utomated message] The = Eosinophils #) system whic h generated this result tra nsmitted reference range : <=0.5. The reference r christiano was not used to int erpret this result as normal/abnormal . [facility] HospitalSnujfkmKJMZSALGBA6806-14-71 09:49:00 Test Item Value Reference Range Interpretation Comments WBC (test code = WBC) 6.2 3.7-10.4 [place] [address]-02-28 09:49:00 Test Item Value Reference Range Interpretation Comments RBC (test code = RBC) 3.06 4.20-5.40 [place] [address]-02-28 09:49:00 Test Item Value Reference Range Interpretation Comments Hgb (test code = Hgb) 9.2 12.0-16.0 [place] [address]-02-28 09:49:00 Test Item Value Reference Range Interpretation Comments Hct (test code = Hct) 28.0 36.0-48.0 [place] [address]-02-28 09:49:00 Test Item Value Reference Range Interpretation Comments MCV (test code = MCV) 91.5 80.0-98.0 [place] [address]-02-28 09:49:00 Test Item Value Reference Range Interpretation Comments MCH (test code = MCH) 30.0 pg 27.0-31.0 [place] [address]-02-28 09:49:00 Test Item Value Reference Range Interpretation Comments MCHC (test code = MCHC) 32.7 32.0-36.0 [facility] HospitalBouqklzXEJYWENKRK7569-22-07 09:49:00 Test Item Value Reference Range Interpretation Comments RDW (test code = RDW) 14.1 11.5-14.5 [place] 963423-02-28 09:49:00 Test Item Value Reference Range Interpretation Comments Platelet (test code = Platelet) 136 133-450 [place] 963423-02-28 09:49:00 Test Item Value Reference Range Interpretation Comments MPV (test code = MPV) 7.7 7.4-10.4 [place] [address]-02-28 09:49:00 Test Item Value Reference Range Interpretation Comments Segs (test code = Segs) 49.2 45.0-75.0 [place] 963423-02-28 09:49:00 Test Item Value Reference Range Interpretation Comments Lymphocytes (test code = Lymphocytes) 33.0 20.0-40.0 [place] 963423-02-28 09:49:00 Test Item Value Reference Range Interpretation Comments Monocytes (test code = Monocytes) 10.5 2.0-12.0 [facility] HospitalGkovljvIYTFLVUBON3349-05-52 09:49:00 Test Item Value Reference Range Interpretation Comments Eosinophils (test code = 6.6 See_Comment [A utomated message] The Eosinophils) system which ge nerated this result tra nsmitted reference range : <=4.0. The reference r christiano was not used to int erpret this result as normal/abnormal . [facility] HospitalPztsnawZYVWROGCQF3299-57-95 09:49:00 Test Item Value Reference Range Interpretation Comments Basophils (test code = 0.7 See_Comment [Aut omated message] The Basophils) system which ge nerated this result tra nsmitted reference range : <=1.0. The reference r christiano was not used to int erpret this result as normal/abnormal . [facility] HospitalBfxofjlLDTCESXMAC4704-20-78 09:49:00 Test Item Value Reference Range Interpretation Comments Neutrophils # (test code = Neutrophils 3.0 1.5-8.1 #) [facility] HospitalMfuyqtgGRQYNEPTDC2284-69-83 09:49:00 Test Item Value Reference Range Interpretation Comments Lymphocytes # (test code = Lymphocytes 2.0 1.0-5.5 #) [place] 963423-02-28 09:49:00 Test Item Value Reference Range Interpretation Comments Monocytes # (test code 0.7 See_Comment [Aut omated message] The = Monocytes #) system which generated this result tra nsmitted reference range : <=0.8. The reference r christiano was not used to int erpret this result as normal/abnormal . [facility] HospitalQdgzmprMHDVAOYEKZ1083-50-84 09:49:00 Test Item Value Reference Range Interpretation Comments Eosinophils # (test code 0.4 See_Comment [A utomated message] The = Eosinophils #) system whic h generated this result tra nsmitted reference range : <=0.5. The reference r christiano was not used to int erpret this result as normal/abnormal . [facility] HospitalGyteaztFQLXWKMZEN2822-07-04 09:49:00 Test Item Value Reference Range Interpretation Comments WBC (test code = WBC) 6.2 3.7-10.4 [place] 963423-02-28 09:49:00 Test Item Value Reference Range Interpretation Comments RBC (test code = RBC) 3.06 4.20-5.40 [place] 963423-02-28 09:49:00 Test Item Value Reference Range Interpretation Comments Hgb (test code = Hgb) 9.2 12.0-16.0 [place] 963423-02-28 09:49:00 Test Item Value Reference Range Interpretation Comments Hct (test code = Hct) 28.0 36.0-48.0 [place] 963423-02-28 09:49:00 Test Item Value Reference Range Interpretation Comments MCV (test code = MCV) 91.5 80.0-98.0 [place] 963423-02-28 09:49:00 Test Item Value Reference Range Interpretation Comments MCH (test code = MCH) 30.0 pg 27.0-31.0 [place] 963423-02-28 09:49:00 Test Item Value Reference Range Interpretation Comments MCHC (test code = MCHC) 32.7 32.0-36.0 [place] 963423-02-28 09:49:00 Test Item Value Reference Range Interpretation Comments RDW (test code = RDW) 14.1 11.5-14.5 [place] 963423-02-28 09:49:00 Test Item Value Reference Range Interpretation Comments Platelet (test code = Platelet) 136 133-450 [facility]AbitmaeMPAHVWDITM4503-15-85 09:49:00 Test Item Value Reference Range Interpretation Comments MPV (test code = MPV) 7.7 7.4-10.4 [place] 457353-02-28 09:49:00 Test Item Value Reference Range Interpretation Comments Glucose Lvl (test code = Glucose Lvl) 93 70-99 [place] 457353-02-28 09:49:00 Test Item Value Reference Range Interpretation Comments BUN (test code = BUN) 30 7-22 [place] 457353-02-28 09:49:00 Test Item Value Reference Range Interpretation Comments Creatinine Lvl (test code = Creatinine 2.50 0.50-1.40 Lvl) [place] 457353-02-28 09:49:00 Test Item Value Reference Range Interpretation Comments Sodium Lvl (test code = Sodium Lvl) 138 135-145 [place] 457353-02-28 09:49:00 Test Item Value Reference Range Interpretation Comments Potassium Lvl (test code = Potassium 5.1 3.5-5.1 Lvl) [place] 457353-02-28 09:49:00 Test Item Value Reference Range Interpretation Comments Chloride Lvl (test code = Chloride Lvl) 108 95-109 [place] 457353-02-28 09:49:00 Test Item Value Reference Range Interpretation Comments CO2 (test code = CO2) 30 24-32 [place] 457353-02-28 09:49:00 Test Item Value Reference Range Interpretation Comments Calcium Lvl (test code = Calcium Lvl) 8.0 8.5-10.5 [place] 457353-02-28 09:49:00 Test Item Value Reference Range Interpretation Comments AGAP (test code = AGAP) 5.1 10.0-20.0 [place] 457353-02-28 09:49:00 Test Item Value Reference Range Interpretation Comments eGFR (test code = eGFR) 19 [place] 922233-02-28 09:49:00 Test Item Value Reference Range Interpretation Comments Glucose Lvl (test code = Glucose Lvl) 93 70-99 [place] 922233-02-28 09:49:00 Test Item Value Reference Range Interpretation Comments BUN (test code = BUN) 30 7-22 [facility]RmcgrhoUCCFBMYKL0282-94-95 09:49:00 Test Item Value Reference Range Interpretation Comments Creatinine Lvl (test code = Creatinine 2.50 0.50-1.40 Lvl) [facility] TexasFfjdnciWWRYVFSPI0452-35-14 09:49:00 Test Item Value Reference Range Interpretation Comments Sodium Lvl (test code = Sodium Lvl) 138 135-145 [facility] TexasKszscafUJHQZKVCM8450-61-89 09:49:00 Test Item Value Reference Range Interpretation Comments Potassium Lvl (test code = Potassium 5.1 3.5-5.1 Lvl) [facility] TexasSqugvlzNXYNCELSY7959-57-43 09:49:00 Test Item Value Reference Range Interpretation Comments Chloride Lvl (test code = Chloride Lvl) 108 95-109 [facility] TexasVzxdtmvMFVQPOVCZ5329-77-70 09:49:00 Test Item Value Reference Range Interpretation Comments CO2 (test code = CO2) 30 24-32 [facility] TexasUxaeivpYFXAGBXSU5245-45-41 09:49:00 Test Item Value Reference Range Interpretation Comments Calcium Lvl (test code = Calcium Lvl) 8.0 8.5-10.5 [facility] TexasKeunkbjQBKIIIIMH1729-90-94 09:49:00 Test Item Value Reference Range Interpretation Comments AGAP (test code = AGAP) 5.1 10.0-20.0 [facility] TexasVzazlmtQALNVOMRY4252-57-67 09:49:00 Test Item Value Reference Range Interpretation Comments eGFR (test code = eGFR) 19 [facility] HospitalMslhgsqYMSQAPPTAS6240-89-98 09:49:00 Test Item Value Reference Range Interpretation Comments Segs (test code = Segs) 49.2 45.0-75.0 [facility] HospitalGwvjqhpJLSFMYFRMY0012-24-36 09:49:00 Test Item Value Reference Range Interpretation Comments Lymphocytes (test code = Lymphocytes) 33.0 20.0-40.0 [facility] HospitalRlfjvdeWFWCWSNMDE7994-67-80 09:49:00 Test Item Value Reference Range Interpretation Comments Monocytes (test code = Monocytes) 10.5 2.0-12.0 [facility] HospitalCldgpowEIUIYQFSIJ3168-48-16 09:49:00 Test Item Value Reference Range Interpretation Comments Eosinophils (test code = 6.6 See_Comment [A utomated message] The Eosinophils) system which ge nerated this result tra nsmitted reference range : <=4.0. The reference r christiano was not used to int erpret this result as normal/abnormal . [facility] HospitalHwwbouvKVDKEAQALN3261-10-19 09:49:00 Test Item Value Reference Range Interpretation Comments Basophils (test code = 0.7 See_Comment [Aut omated message] The Basophils) system which ge nerated this result tra nsmitted reference range : <=1.0. The reference r christiano was not used to int erpret this result as normal/abnormal . [facility] HospitalPmhubjnCQOGJLHTDY3297-28-38 09:49:00 Test Item Value Reference Range Interpretation Comments Neutrophils # (test code = Neutrophils 3.0 1.5-8.1 #) [facility] HospitalFzeatrdXDGGTXCMYI9801-30-54 09:49:00 Test Item Value Reference Range Interpretation Comments Lymphocytes # (test code = Lymphocytes 2.0 1.0-5.5 #) [place] 963423-02-28 09:49:00 Test Item Value Reference Range Interpretation Comments Monocytes # (test code 0.7 See_Comment [Aut omated message] The = Monocytes #) system which generated this result tra nsmitted reference range : <=0.8. The reference r christiano was not used to int erpret this result as normal/abnormal . [facility] HospitalEknxmbjEFZYDUMKQU9577-35-80 09:49:00 Test Item Value Reference Range Interpretation Comments Eosinophils # (test code 0.4 See_Comment [A utomated message] The = Eosinophils #) system whic h generated this result tra nsmitted reference range : <=0.5. The reference r christiano was not used to int erpret this result as normal/abnormal . [facility] HospitalPenkmluVXSWTSUPXI5520-80-91 09:49:00 Test Item Value Reference Range Interpretation Comments WBC (test code = WBC) 6.2 3.7-10.4 [place] 963423-02-28 09:49:00 Test Item Value Reference Range Interpretation Comments RBC (test code = RBC) 3.06 4.20-5.40 [place] 963423-02-28 09:49:00 Test Item Value Reference Range Interpretation Comments Hgb (test code = Hgb) 9.2 12.0-16.0 [place] [address]-02-28 09:49:00 Test Item Value Reference Range Interpretation Comments Hct (test code = Hct) 28.0 36.0-48.0 [place] 963423-02-28 09:49:00 Test Item Value Reference Range Interpretation Comments MCV (test code = MCV) 91.5 80.0-98.0 [place] 963423-02-28 09:49:00 Test Item Value Reference Range Interpretation Comments MCH (test code = MCH) 30.0 pg 27.0-31.0 [place] 963423-02-28 09:49:00 Test Item Value Reference Range Interpretation Comments MCHC (test code = MCHC) 32.7 32.0-36.0 [place] 963423-02-28 09:49:00 Test Item Value Reference Range Interpretation Comments RDW (test code = RDW) 14.1 11.5-14.5 [place] 963423-02-28 09:49:00 Test Item Value Reference Range Interpretation Comments Platelet (test code = Platelet) 136 133-450 [place] 963423-02-28 09:49:00 Test Item Value Reference Range Interpretation Comments MPV (test code = MPV) 7.7 7.4-10.4 [place] [address]-02-28 09:49:00 Test Item Value Reference Range Interpretation Comments Segs (test code = Segs) 49.2 45.0-75.0 [place] 963423-02-28 09:49:00 Test Item Value Reference Range Interpretation Comments Lymphocytes (test code = Lymphocytes) 33.0 20.0-40.0 [place] 963423-02-28 09:49:00 Test Item Value Reference Range Interpretation Comments Monocytes (test code = Monocytes) 10.5 2.0-12.0 [place] [address]-02-28 09:49:00 Test Item Value Reference Range Interpretation Comments Eosinophils (test code = 6.6 See_Comment [A utomated message] The Eosinophils) system which ge nerated this result tra nsmitted reference range : <=4.0. The reference r christiano was not used to int erpret this result as normal/abnormal . [place] 963423-02-28 09:49:00 Test Item Value Reference Range Interpretation Comments Basophils (test code = 0.7 See_Comment [Aut omated message] The Basophils) system which ge nerated this result tra nsmitted reference range : <=1.0. The reference r christiano was not used to int erpret this result as normal/abnormal . [place] 963423-02-28 09:49:00 Test Item Value Reference Range Interpretation Comments Neutrophils # (test code = Neutrophils 3.0 1.5-8.1 #) [place] 963423-02-28 09:49:00 Test Item Value Reference Range Interpretation Comments Lymphocytes # (test code = Lymphocytes 2.0 1.0-5.5 #) [place] 963423-02-28 09:49:00 Test Item Value Reference Range Interpretation Comments Monocytes # (test code 0.7 See_Comment [Aut omated message] The = Monocytes #) system which generated this result tra nsmitted reference range : <=0.8. The reference r christiano was not used to int erpret this result as normal/abnormal . [facility] HospitalArjfroxNEIBVUJNEM2855-52-83 09:49:00 Test Item Value Reference Range Interpretation Comments Eosinophils # (test code 0.4 See_Comment [A utomated message] The = Eosinophils #) system whic h generated this result tra nsmitted reference range : <=0.5. The reference r christiano was not used to int erpret this result as normal/abnormal . [facility] HospitalAxgndfwDBEHWRISFD2591-59-43 09:49:00 Test Item Value Reference Range Interpretation Comments WBC (test code = WBC) 6.2 3.7-10.4 [place] 963423-02-28 09:49:00 Test Item Value Reference Range Interpretation Comments RBC (test code = RBC) 3.06 4.20-5.40 [place] [address]-02-28 09:49:00 Test Item Value Reference Range Interpretation Comments Hgb (test code = Hgb) 9.2 12.0-16.0 [place] [address]-02-28 09:49:00 Test Item Value Reference Range Interpretation Comments Hct (test code = Hct) 28.0 36.0-48.0 [place] [address]-02-28 09:49:00 Test Item Value Reference Range Interpretation Comments MCV (test code = MCV) 91.5 80.0-98.0 [place] [address]-02-28 09:49:00 Test Item Value Reference Range Interpretation Comments MCH (test code = MCH) 30.0 pg 27.0-31.0 [place] 963423-02-28 09:49:00 Test Item Value Reference Range Interpretation Comments MCHC (test code = MCHC) 32.7 32.0-36.0 [place] [address]-02-28 09:49:00 Test Item Value Reference Range Interpretation Comments RDW (test code = RDW) 14.1 11.5-14.5 [place] [address]-02-28 09:49:00 Test Item Value Reference Range Interpretation Comments Platelet (test code = Platelet) 136 133-450 [place] [address]-02-28 09:49:00 Test Item Value Reference Range Interpretation Comments MPV (test code = MPV) 7.7 7.4-10.4 [place] 457353-02-28 09:49:00 Test Item Value Reference Range Interpretation Comments Glucose Lvl (test code = Glucose Lvl) 93 70-99 [place] 457353-02-28 09:49:00 Test Item Value Reference Range Interpretation Comments BUN (test code = BUN) 30 7-22 [place] 457353-02-28 09:49:00 Test Item Value Reference Range Interpretation Comments Creatinine Lvl (test code = Creatinine 2.50 0.50-1.40 Lvl) [place] 457353-02-28 09:49:00 Test Item Value Reference Range Interpretation Comments Sodium Lvl (test code = Sodium Lvl) 138 135-145 [place] 457353-02-28 09:49:00 Test Item Value Reference Range Interpretation Comments Potassium Lvl (test code = Potassium 5.1 3.5-5.1 Lvl) [place] 457353-02-28 09:49:00 Test Item Value Reference Range Interpretation Comments Chloride Lvl (test code = Chloride Lvl) 108 95-109 [place] 457353-02-28 09:49:00 Test Item Value Reference Range Interpretation Comments CO2 (test code = CO2) 30 24-32 [place] 457353-02-28 09:49:00 Test Item Value Reference Range Interpretation Comments Calcium Lvl (test code = Calcium Lvl) 8.0 8.5-10.5 [facility]2023-02-28 09:49:00 Test Item Value Reference Range Interpretation Comments AGAP (test code = AGAP) 5.1 10.0-20.0 [facility]2023-02-28 09:49:00 Test Item Value Reference Range Interpretation Comments eGFR (test code = eGFR) 19 [place] 922233-02-28 09:49:00 Test Item Value Reference Range Interpretation Comments Glucose Lvl (test code = Glucose Lvl) 93 70-99 [place] [address]-02-28 09:49:00 Test Item Value Reference Range Interpretation Comments BUN (test code = BUN) 30 7-22 [facility]drejtcVAKFRMFVZ6363-81-98 09:49:00 Test Item Value Reference Range Interpretation Comments Creatinine Lvl (test code = Creatinine 2.50 0.50-1.40 Lvl) [place] 922233-02-28 09:49:00 Test Item Value Reference Range Interpretation Comments Sodium Lvl (test code = Sodium Lvl) 138 135-145 [facility]RrrqteaSNOKRZRLB0180-08-16 09:49:00 Test Item Value Reference Range Interpretation Comments Potassium Lvl (test code = Potassium 5.1 3.5-5.1 Lvl) [facility] TexasZljilxqICDKBPDQV8749-69-00 09:49:00 Test Item Value Reference Range Interpretation Comments Chloride Lvl (test code = Chloride Lvl) 108 95-109 [facility] TexasArjbrucYUWETEEUV2144-87-43 09:49:00 Test Item Value Reference Range Interpretation Comments CO2 (test code = CO2) 30 24-32 [place] 922233-02-28 09:49:00 Test Item Value Reference Range Interpretation Comments Calcium Lvl (test code = Calcium Lvl) 8.0 8.5-10.5 [facility] TexasNdbnlwrIXVBELQVF5103-62-83 09:49:00 Test Item Value Reference Range Interpretation Comments AGAP (test code = AGAP) 5.1 10.0-20.0 [facility] TexasPzzryqcVPVQXXFZR6944-63-13 09:49:00 Test Item Value Reference Range Interpretation Comments eGFR (test code = eGFR) 19 [facility]bb[facility]zLAWIXZYGQY9032[facility]14-04 09:49:00 Test Item Value Reference Range Interpretation Comments Segs (test code = Segs) 49.2 45.0-75.0 [place] [address]-02-28 09:49:00 Test Item Value Reference Range Interpretation Comments Lymphocytes (test code = Lymphocytes) 33.0 20.0-40.0 [place] [address]-02-28 09:49:00 Test Item Value Reference Range Interpretation Comments Monocytes (test code = Monocytes) 10.5 2.0-12.0 [place] [address]-02-28 09:49:00 Test Item Value Reference Range Interpretation Comments Eosinophils (test code = Eosinophils) 6.6 <=4.0 [place] [address]-02-28 09:49:00 Test Item Value Reference Range Interpretation Comments Basophils (test code = Basophils) 0.7 <=1.0 [place] [address]-02-28 09:49:00 Test Item Value Reference Range Interpretation Comments Neutrophils # (test code = Neutrophils 3.0 1.5-8.1 #) [facility]WtxetbrISSCRQHIWX7313-70-95 09:49:00 Test Item Value Reference Range Interpretation Comments Lymphocytes # (test code = Lymphocytes 2.0 1.0-5.5 #) [facility] HospitalFtdmskoWUBKOFSYTJ8594-71-94 09:49:00 Test Item Value Reference Range Interpretation Comments Monocytes # (test code = Monocytes #) 0.7 <=0.8 [place] [address]-02-28 09:49:00 Test Item Value Reference Range Interpretation Comments Eosinophils # (test code = Eosinophils 0.4 <=0.5 #) [place] 963423-02-28 09:49:00 Test Item Value Reference Range Interpretation Comments WBC (test code = WBC) 6.2 3.7-10.4 [place] [address]-02-28 09:49:00 Test Item Value Reference Range Interpretation Comments RBC (test code = RBC) 3.06 4.20-5.40 [place] 963423-02-28 09:49:00 Test Item Value Reference Range Interpretation Comments Hgb (test code = Hgb) 9.2 12.0-16.0 [place] [address]-02-28 09:49:00 Test Item Value Reference Range Interpretation Comments Hct (test code = Hct) 28.0 36.0-48.0 [facility] HospitalDixwmvbAMQOPCHPQG5248-76-16 09:49:00 Test Item Value Reference Range Interpretation Comments MCV (test code = MCV) 91.5 80.0-98.0 [facility] HospitalTtagzvnKQQHFKCLEJ2699-41-78 09:49:00 Test Item Value Reference Range Interpretation Comments MCH (test code = MCH) 30.0 pg 27.0-31.0 [facility] HospitalMkzzxfdXEFOAQWAGJ7152-67-15 09:49:00 Test Item Value Reference Range Interpretation Comments MCHC (test code = MCHC) 32.7 32.0-36.0 [facility] HospitalOpniewbTQCAOHJPME0657-00-55 09:49:00 Test Item Value Reference Range Interpretation Comments RDW (test code = RDW) 14.1 11.5-14.5 [facility] HospitalAhldjkuVQCXLOYBRH4359-67-40 09:49:00 Test Item Value Reference Range Interpretation Comments Platelet (test code = Platelet) 136 133-450 [facility] HospitalUnjelquJGIUGQBRTL0469-63-80 09:49:00 Test Item Value Reference Range Interpretation Comments MPV (test code = MPV) 7.7 7.4-10.4 [facility] HospitalYktuuynXDMPYHQMGP3993-13-39 09:49:00 Test Item Value Reference Range Interpretation Comments Segs (test code = Segs) 49.2 45.0-75.0 [facility] HospitalOhrykrxWCAQBYNYGO4745-78-89 09:49:00 Test Item Value Reference Range Interpretation Comments Lymphocytes (test code = Lymphocytes) 33.0 20.0-40.0 [facility] HospitalDyghzgaFJMUUNBZHC8325-23-18 09:49:00 Test Item Value Reference Range Interpretation Comments Monocytes (test code = Monocytes) 10.5 2.0-12.0 [place] 963423-02-28 09:49:00 Test Item Value Reference Range Interpretation Comments Eosinophils (test code = Eosinophils) 6.6 <=4.0 [facility] HospitalDtovmtvLROEVSMDEJ9419-36-49 09:49:00 Test Item Value Reference Range Interpretation Comments Basophils (test code = Basophils) 0.7 <=1.0 [facility] HospitalSuygkrxAIQGLFTHNC7501-42-28 09:49:00 Test Item Value Reference Range Interpretation Comments Neutrophils # (test code = Neutrophils 3.0 1.5-8.1 #) [facility] HospitalAbgmpxzYKTYAMXIQO4041-59-75 09:49:00 Test Item Value Reference Range Interpretation Comments Lymphocytes # (test code = Lymphocytes 2.0 1.0-5.5 #) [facility] HospitalPuoubtiGFZWWMYOIW1474-36-02 09:49:00 Test Item Value Reference Range Interpretation Comments Monocytes # (test code = Monocytes #) 0.7 <=0.8 [place] 963423-02-28 09:49:00 Test Item Value Reference Range Interpretation Comments Eosinophils # (test code = Eosinophils 0.4 <=0.5 #) [place] 963423-02-28 09:49:00 Test Item Value Reference Range Interpretation Comments WBC (test code = WBC) 6.2 3.7-10.4 [place] [address]-02-28 09:49:00 Test Item Value Reference Range Interpretation Comments RBC (test code = RBC) 3.06 4.20-5.40 [place] 963423-02-28 09:49:00 Test Item Value Reference Range Interpretation Comments Hgb (test code = Hgb) 9.2 12.0-16.0 [place] 963423-02-28 09:49:00 Test Item Value Reference Range Interpretation Comments Hct (test code = Hct) 28.0 36.0-48.0 [facility] HospitalXlkzpcnAQEMIMEISI5510-53-60 09:49:00 Test Item Value Reference Range Interpretation Comments MCV (test code = MCV) 91.5 80.0-98.0 [place] 963423-02-28 09:49:00 Test Item Value Reference Range Interpretation Comments MCH (test code = MCH) 30.0 pg 27.0-31.0 [place] 963423-02-28 09:49:00 Test Item Value Reference Range Interpretation Comments MCHC (test code = MCHC) 32.7 32.0-36.0 [place] 963423-02-28 09:49:00 Test Item Value Reference Range Interpretation Comments RDW (test code = RDW) 14.1 11.5-14.5 [place] 963423-02-28 09:49:00 Test Item Value Reference Range Interpretation Comments Platelet (test code = Platelet) 136 133-450 [place] 963423-02-28 09:49:00 Test Item Value Reference Range Interpretation Comments MPV (test code = MPV) 7.7 7.4-10.4 [place] 457353-02-28 09:49:00 Test Item Value Reference Range Interpretation Comments Glucose Lvl (test code = Glucose Lvl) 93 70-99 [place] 457353-02-28 09:49:00 Test Item Value Reference Range Interpretation Comments BUN (test code = BUN) 30 - [place] 457353-02-28 09:49:00 Test Item Value Reference Range Interpretation Comments Creatinine Lvl (test code = Creatinine 2.50 0.50-1.40 Lvl) [place] 457353-02-28 09:49:00 Test Item Value Reference Range Interpretation Comments Sodium Lvl (test code = Sodium Lvl) 138 135-145 [place] 457353-02-28 09:49:00 Test Item Value Reference Range Interpretation Comments Potassium Lvl (test code = Potassium 5.1 3.5-5.1 Lvl) [place] 457353-02-28 09:49:00 Test Item Value Reference Range Interpretation Comments Chloride Lvl (test code = Chloride Lvl) 108 95-109 [place] 457353-02-28 09:49:00 Test Item Value Reference Range Interpretation Comments CO2 (test code = CO2) 30 24-32 [facility]2023-02-28 09:49:00 Test Item Value Reference Range Interpretation Comments Calcium Lvl (test code = Calcium Lvl) 8.0 8.5-10.5 [place] 457353-02-28 09:49:00 Test Item Value Reference Range Interpretation Comments AGAP (test code = AGAP) 5.1 10.0-20.0 [place] 457353-02-28 09:49:00 Test Item Value Reference Range Interpretation Comments eGFR (test code = eGFR) 19 [place] 922233-02-28 09:49:00 Test Item Value Reference Range Interpretation Comments Glucose Lvl (test code = Glucose Lvl) 93 70-99 [place] 922233-02-28 09:49:00 Test Item Value Reference Range Interpretation Comments BUN (test code = BUN) 30 7-22 [place] 922233-02-28 09:49:00 Test Item Value Reference Range Interpretation Comments Creatinine Lvl (test code = Creatinine 2.50 0.50-1.40 Lvl) [facility]KoidwijYJLVLVZKL3822-65-86 09:49:00 Test Item Value Reference Range Interpretation Comments Sodium Lvl (test code = Sodium Lvl) 138 135-145 [facility]XsifjvoKHWEADZTL1103-91-26 09:49:00 Test Item Value Reference Range Interpretation Comments Potassium Lvl (test code = Potassium 5.1 3.5-5.1 Lvl) [facility] TexasGncowolARARXCZPI4292-42-94 09:49:00 Test Item Value Reference Range Interpretation Comments Chloride Lvl (test code = Chloride Lvl) 108 95-109 [facility] TexasGxfqgqmZTZWGORKH7146-70-58 09:49:00 Test Item Value Reference Range Interpretation Comments CO2 (test code = CO2) 30 24-32 [facility]XsccmdsRRAOXHQMU7203-60-85 09:49:00 Test Item Value Reference Range Interpretation Comments Calcium Lvl (test code = Calcium Lvl) 8.0 8.5-10.5 [facility] TexasOjsqupqVFNUNDRAL1414-99-24 09:49:00 Test Item Value Reference Range Interpretation Comments AGAP (test code = AGAP) 5.1 10.0-20.0 [facility] TexasZnurbbiYHITTAAHJ7031-55-05 09:49:00 Test Item Value Reference Range Interpretation Comments eGFR (test code = eGFR) 19 [facility] HospitalUcxcuxrDUJYJGLBAB7071-96-78 09:49:00 Test Item Value Reference Range Interpretation Comments Segs (test code = Segs) 49.2 45.0-75.0 [facility] HospitalFytsdjyKGXFLJWOLH1337-53-43 09:49:00 Test Item Value Reference Range Interpretation Comments Lymphocytes (test code = Lymphocytes) 33.0 20.0-40.0 [facility] HospitalJerwrgcVRJMHEGNHH9032-10-69 09:49:00 Test Item Value Reference Range Interpretation Comments Monocytes (test code = Monocytes) 10.5 2.0-12.0 [place] 963423-02-28 09:49:00 Test Item Value Reference Range Interpretation Comments Eosinophils (test code = Eosinophils) 6.6 <=4.0 [place] 963423-02-28 09:49:00 Test Item Value Reference Range Interpretation Comments Basophils (test code = Basophils) 0.7 <=1.0 [place] 963423-02-28 09:49:00 Test Item Value Reference Range Interpretation Comments Neutrophils # (test code = Neutrophils 3.0 1.5-8.1 #) [place] 963423-02-28 09:49:00 Test Item Value Reference Range Interpretation Comments Lymphocytes # (test code = Lymphocytes 2.0 1.0-5.5 #) [place] 963423-02-28 09:49:00 Test Item Value Reference Range Interpretation Comments Monocytes # (test code = Monocytes #) 0.7 <=0.8 [place] [address]-02-28 09:49:00 Test Item Value Reference Range Interpretation Comments Eosinophils # (test code = Eosinophils 0.4 <=0.5 #) [place] 963423-02-28 09:49:00 Test Item Value Reference Range Interpretation Comments WBC (test code = WBC) 6.2 3.7-10.4 [place] 963423-02-28 09:49:00 Test Item Value Reference Range Interpretation Comments RBC (test code = RBC) 3.06 4.20-5.40 [place] 963423-02-28 09:49:00 Test Item Value Reference Range Interpretation Comments Hgb (test code = Hgb) 9.2 12.0-16.0 [place] 963423-02-28 09:49:00 Test Item Value Reference Range Interpretation Comments Hct (test code = Hct) 28.0 36.0-48.0 [place] 963423-02-28 09:49:00 Test Item Value Reference Range Interpretation Comments MCV (test code = MCV) 91.5 80.0-98.0 [place] [address]-02-28 09:49:00 Test Item Value Reference Range Interpretation Comments MCH (test code = MCH) 30.0 pg 27.0-31.0 [place] 963423-02-28 09:49:00 Test Item Value Reference Range Interpretation Comments MCHC (test code = MCHC) 32.7 32.0-36.0 [place] 963423-02-28 09:49:00 Test Item Value Reference Range Interpretation Comments RDW (test code = RDW) 14.1 11.5-14.5 [place] 963423-02-28 09:49:00 Test Item Value Reference Range Interpretation Comments Platelet (test code = Platelet) 136 133-450 [facility] HospitalUevqssbUUOBKYKPNN9960-92-59 09:49:00 Test Item Value Reference Range Interpretation Comments MPV (test code = MPV) 7.7 7.4-10.4 [facility] HospitalRjwzjseKIUBVCCIVO8696-52-23 09:49:00 Test Item Value Reference Range Interpretation Comments Segs (test code = Segs) 49.2 45.0-75.0 [place] 963423-02-28 09:49:00 Test Item Value Reference Range Interpretation Comments Lymphocytes (test code = Lymphocytes) 33.0 20.0-40.0 [place] 963423-02-28 09:49:00 Test Item Value Reference Range Interpretation Comments Monocytes (test code = Monocytes) 10.5 2.0-12.0 [place] 963423-02-28 09:49:00 Test Item Value Reference Range Interpretation Comments Eosinophils (test code = Eosinophils) 6.6 <=4.0 [facility] HospitalUoepickHHKFHZOXJW5194-33-04 09:49:00 Test Item Value Reference Range Interpretation Comments Basophils (test code = Basophils) 0.7 <=1.0 [place] 963423-02-28 09:49:00 Test Item Value Reference Range Interpretation Comments Neutrophils # (test code = Neutrophils 3.0 1.5-8.1 #) [facility] HospitalLkferrrTOQIJWPZXT4830-90-74 09:49:00 Test Item Value Reference Range Interpretation Comments Lymphocytes # (test code = Lymphocytes 2.0 1.0-5.5 #) [facility] HospitalRrnezipEXWDMQFZDD4950-42-90 09:49:00 Test Item Value Reference Range Interpretation Comments Monocytes # (test code = Monocytes #) 0.7 <=0.8 [place] [address]-02-28 09:49:00 Test Item Value Reference Range Interpretation Comments Eosinophils # (test code = Eosinophils 0.4 <=0.5 #) [place] 963423-02-28 09:49:00 Test Item Value Reference Range Interpretation Comments WBC (test code = WBC) 6.2 3.7-10.4 [place] 963423-02-28 09:49:00 Test Item Value Reference Range Interpretation Comments RBC (test code = RBC) 3.06 4.20-5.40 [place] [address]-02-28 09:49:00 Test Item Value Reference Range Interpretation Comments Hgb (test code = Hgb) 9.2 12.0-16.0 [facility] HospitalXeapzxyGFNYPWJNCL8420-03-49 09:49:00 Test Item Value Reference Range Interpretation Comments Hct (test code = Hct) 28.0 36.0-48.0 [facility] HospitalVxmrbegZEQMGWRECH8752-00-49 09:49:00 Test Item Value Reference Range Interpretation Comments MCV (test code = MCV) 91.5 80.0-98.0 [facility] HospitalTvcdjuiVPFLGXRKCQ8811-04-76 09:49:00 Test Item Value Reference Range Interpretation Comments MCH (test code = MCH) 30.0 pg 27.0-31.0 [facility] HospitalTwkjbetOLAFDXYNIU9244-78-66 09:49:00 Test Item Value Reference Range Interpretation Comments MCHC (test code = MCHC) 32.7 32.0-36.0 [facility] HospitalApwfrduNANOZTIJCC4279-70-45 09:49:00 Test Item Value Reference Range Interpretation Comments RDW (test code = RDW) 14.1 11.5-14.5 [facility] HospitalIfsgpaoFYOUTQLSDE2962-24-84 09:49:00 Test Item Value Reference Range Interpretation Comments Platelet (test code = Platelet) 136 133-450 [facility] HospitalXsxldnuTPVALZZBZC2763-99-72 09:49:00 Test Item Value Reference Range Interpretation Comments MPV (test code = MPV) 7.7 7.4-10.4 [place] 60059023-02-27 14:44:19 Test Item Value Reference Range Interpretation [...] spinal [facility] C6-7. [facility]UozkuyqISIVFZ3471-26-19 14:44:19 Test Item Value Reference Range Interpretation [...] [facility]vxgtjyRIHGFP6815-53-67 14:44:19 Test Item Value Reference Range Interpretation [...] spinal canal narrowing at C6-7. [facility] CenterYhryxdvEKDGII3805-60-79 14:44:19 Test Item Value Reference Range Interpretation [...] Additional severe spinal canal narrowing at C6-7. [facility]WwbovnlAHVTWQ2473-54-80 14:44:19 Test Item Value Reference Range Interpretation [...] spinal canal narrowing at C6-7. [facility] CenterSjympcdHZMXDL6517-70-09 14:44:19 Test Item Value Reference Range Interpretation [...] spinal canal narrowing at C6-7. [facility] CenterBxjdrroAGRJJL6756-00-78 14:44:19 Test Item Value Reference Range Interpretation [...] Additional severe spinal canal narrowing at C6-7. [facility] HospitalAmdjcbgQXRSLC2169-30-42 14:44:19 Test Item Value Reference Range Interpretation [...] [facility]aleGbkgshgQAZEHE5536-55-25 14:44:19 Test Item Value Reference Range Interpretation [...] Additional severe spinal canal narrowing at C6-7. [facility] HospitalBesewdhCBYPIK5251-17-88 14:44:19 Test Item Value Reference Range Interpretation [...] spinal canal narrowing at C6-7. [facility] CenterHgxdttwHSKXCH5392-36-81 14:44:19 Test Item Value Reference Range Interpretation [...] spinal canal narrowing at C6-7. [facility] CenterMuuccedNHBXCCCXLW1011-79-18 10:40:00 Test Item Value Reference Range Interpretation Comments Coronavirus (COVID-19) Not Detected (11/27/22 JONATHAN (test code = 4:40 AM) Coronavirus (COVID-19) JONATHAN) [place] 447133-02-27 10:40:00 Test Item Value Reference Range Interpretation Comments Coronavirus (COVID-19) Not Detected (11/27/22 JONATHAN (test code = 4:40 AM) Coronavirus (COVID-19) JONATHAN) [facility] CenterTxbicsoEKRXGARIXM1491-65-76 10:40:00 Test Item Value Reference Range Interpretation Comments Coronavirus (COVID-19) Not Detected (11/27/22 JONATHAN (test code = 4:40 AM) Coronavirus (COVID-19) JONATHAN) [place] [address]-02-27 10:40:00 Test Item Value Reference Range Interpretation Comments Coronavirus (COVID-19) Not Detected (11/27/22 JONATHAN (test code = 4:40 AM) Coronavirus (COVID-19) JONATHAN) [place] [address]-02-27 10:40:00 Test Item Value Reference Range Interpretation Comments Coronavirus (COVID-19) Not Detected (11/27/22 JONATHAN (test code = 4:40 AM) Coronavirus (COVID-19) JONATHAN) [place] [address]-02-27 10:40:00 Test Item Value Reference Range Interpretation Comments Coronavirus (COVID-19) Not Detected (11/27/22 JONATHAN (test code = 4:40 AM) Coronavirus (COVID-19) JONATHAN) [place] [address]-02-27 10:40:00 Test Item Value Reference Range Interpretation Comments Coronavirus (COVID-19) Not Detected (11/27/22 JONATHAN (test code = 4:40 AM) Coronavirus (COVID-19) JONATHAN) [place] [address]-02-27 10:40:00 Test Item Value Reference Range Interpretation Comments Coronavirus (COVID-19) Not Detected (11/27/22 JONATHAN (test code = 4:40 AM) Coronavirus (COVID-19) JONATHAN) [place] [address]-02-27 10:40:00 Test Item Value Reference Range Interpretation Comments Coronavirus (COVID-19) Not Detected (11/27/22 JONATHAN (test code = 4:40 AM) Coronavirus (COVID-19) JONATHAN) [place] [address]-02-27 10:40:00 Test Item Value Reference Range Interpretation Comments Coronavirus (COVID-19) Not Detected (11/27/22 JONATHAN (test code = 4:40 AM) Coronavirus (COVID-19) JONATHAN) [place] [address]-02-27 10:40:00 Test Item Value Reference Range Interpretation Comments Coronavirus (COVID-19) Not Detected (11/27/22 JONATHAN (test code = 4:40 AM) Coronavirus (COVID-19) JONATHAN) [place] [address]-02-27 10:40:00 Test Item Value Reference Range Interpretation Comments Coronavirus (COVID-19) Not Detected (11/27/22 JONATHAN (test code = 4:40 AM) Coronavirus (COVID-19) JONATHAN) [place] [address]-02-27 10:40:00 Test Item Value Reference Range Interpretation Comments Coronavirus (COVID-19) Not Detected (11/27/22 JONATHAN (test code = 4:40 AM) Coronavirus (COVID-19) JONATHAN) [place] [address]-02-27 10:40:00 Test Item Value Reference Range Interpretation Comments Coronavirus (COVID-19) Not Detected (11/27/22 JONATHAN (test code = 4:40 AM) Coronavirus (COVID-19) JONATHAN) [place] [address]-02-27 10:40:00 Test Item Value Reference Range Interpretation Comments Coronavirus (COVID-19) Not Detected (11/27/22 JONATHAN (test code = 4:40 AM) Coronavirus (COVID-19) JONATHAN) [place] [address]-02-27 10:40:00 Test Item Value Reference Range Interpretation Comments Coronavirus (COVID-19) Not Detected (11/27/22 JONATHAN (test code = 4:40 AM) Coronavirus (COVID-19) JONATHAN) [place] [address]-02-27 10:40:00 Test Item Value Reference Range Interpretation Comments Coronavirus (COVID-19) Not Detected (11/27/22 JONATHAN (test code = 4:40 AM) Coronavirus (COVID-19) JONATHAN) [place] [address]-02-27 10:40:00 Test Item Value Reference Range Interpretation Comments Coronavirus (COVID-19) Not Detected (11/27/22 JONATHAN (test code = 4:40 AM) Coronavirus (COVID-19) JONATHAN) [place] [address]-02-27 10:40:00 Test Item Value Reference Range Interpretation Comments Coronavirus (COVID-19) Not Detected (11/27/22 JONATHAN (test code = 4:40 AM) Coronavirus (COVID-19) JONATHAN) [place] [address]-02-27 10:40:00 Test Item Value Reference Range Interpretation Comments Coronavirus (COVID-19) Not Detected (11/27/22 JONATHAN (test code = 4:40 AM) Coronavirus (COVID-19) JONATHAN) [facility]OS[facility] 10:40:00 Test Item Value Reference Range Interpretation Comments Coronavirus (COVID-19) Not Detected (11/27/22 JONATHAN (test code = 4:40 AM) Coronavirus (COVID-19) JONATHAN) [facility]CwgcipsAELRIZLVFS8753-34-03 10:40:00 Test Item Value Reference Range Interpretation Comments Coronavirus (COVID-19) Not Detected (11/27/22 JONATHAN (test code = 4:40 AM) Coronavirus (COVID-19) JONATHAN) [place] [id number] 07:58:03 Test Item Value Reference Range Interpretation [...] at 11/27/2022 2:31 by Urbano Ashton MD [facility] HospitalFnrltbyIQPFXW3546-73-78 07:58:03 Test Item Value Reference Range Interpretation [...] 2:31 by [facility]ano Ashton [facility]woodNhyigzwCGGCHL1638-39-15 07:58:03 Test Item Value Reference Range Interpretation [...] at 11/27/2022 2:31 by Urbano Ashton [facility] HospitalUeljnmwXETIJO9154-16-94 07:58:03 Test Item Value Reference Range Interpretation [...] at 11/27/2022 2:31 by Urbano Ashton MD [facility] HospitalGsqdohjUZRTLV7557-19-17 07:58:03 Test Item Value Reference Range Interpretation [...] 2:31 by [facility]rbano Ashton [facility] CenterXueowjjXDLBXE9047-64-14 07:58:03 Test Item Value Reference Range Interpretation [...] 2:31 by Urbano Ashton [facility] BrownwoodEefdfujHINVRV7155-95-78 07:58:03 Test Item Value Reference Range Interpretation [...] at 11/27/2022 2:31 by Urbano Ashton MD [facility] HospitalAymycxyDCECGY5348-10-89 07:58:03 Test Item Value Reference Range Interpretation [...] at 11/27/2022 2:31 by Urbano Ashton MD [facility] [id number] 07:58:03 Test Item Value Reference Range Interpretation [...] 2:31 by Urbano Ashton MD [facility] CenterLmzsjxgGHCYBI9898-55-33 07:58:03 Test Item Value Reference Range Interpretation [...] 2:31 by Urbano Ashton MD [facility] CenterAlgmbwoYOPKSJ7810-18-09 07:58:03 Test Item Value Reference Range Interpretation [...] 11/27/2022 2:31 by Urbano Ashton MD [facility] W-21 [id number] 07:22:00 Test Item Value Reference Range Interpretation Comments ABO/Rh (test code = ABO/Rh) O POS [facility] W-21 [id number] 07:22:00 Test Item Value Reference Range Interpretation Comments Antibody Scrn (test Negative (11/27/22 1:22 code = Antibody Scrn) AM) [place] [employer] [id number] 07:22:00 Test Item Value Reference Range Interpretation Comments ABO/Rh (test code = ABO/Rh) O POS [facility] [id number] 07:22:00 Test Item Value Reference Range Interpretation Comments Antibody Scrn (test Negative (11/27/22 1:22 code = Antibody Scrn) AM) [facility] [id number] 07:22:00 Test Item Value Reference Range Interpretation Comments ABO/Rh (test code = ABO/Rh) O POS [facility] [id number] 07:22:00 Test Item Value Reference Range Interpretation Comments Antibody Scrn (test Negative (11/27/22 1:22 code = Antibody Scrn) AM) [facility] [id number] 07:22:00 Test Item Value Reference Range Interpretation Comments ABO/Rh (test code = ABO/Rh) O [facility] [id number] 07:22:00 Test Item Value Reference Range Interpretation Comments Antibody Scrn (test Negative (11/27/22 1:22 code = Antibody Scrn) AM) [facility] [id number] 07:22:00 Test Item Value Reference Range Interpretation Comments ABO/Rh (test code = ABO/Rh) O [facility] [id number] 07:22:00 Test Item Value Reference Range Interpretation Comments Antibody Scrn (test Negative (11/27/22 1:22 code = Antibody Scrn) AM) [facility] [id number] 07:22:00 Test Item Value Reference Range Interpretation Comments ABO/Rh (test code = ABO/Rh) O [facility] [id number] 07:22:00 Test Item Value Reference Range Interpretation Comments Antibody Scrn (test Negative (11/27/22 1:22 code = Antibody Scrn) AM) [facility] [id number] 07:22:00 Test Item Value Reference Range Interpretation Comments ABO/Rh (test code = ABO/Rh) O [facility] [id number] 07:22:00 Test Item Value Reference Range Interpretation Comments Antibody Scrn (test Negative (11/27/22 1:22 code = Antibody Scrn) AM) [facility] [id number] 07:22:00 Test Item Value Reference Range Interpretation Comments ABO/Rh (test code = ABO/Rh) O POS [facility] [id number] 07:22:00 Test Item Value Reference Range Interpretation Comments Antibody Scrn (test Negative (11/27/22 1:22 code = Antibody Scrn) AM) [facility] [employer] [id number] 07:22:00 Test Item Value Reference Range Interpretation Comments ABO/Rh (test code = ABO/Rh) O [facility] [id number] 07:22:00 Test Item Value Reference Range Interpretation Comments Antibody Scrn (test Negative (11/27/22 1:22 code = Antibody Scrn) AM) [facility] [id number] 07:22:00 Test Item Value Reference Range Interpretation Comments ABO/Rh (test code = ABO/Rh) O [facility] [id number] 07:22:00 Test Item Value Reference Range Interpretation Comments Antibody Scrn (test Negative (11/27/22 1:22 code = Antibody Scrn) AM) [facility] VisionR[facility]ume [id number] 07:22:00 Test Item Value Reference Range Interpretation Comments ABO/Rh (test code = ABO/Rh) O [facility] [id number] 07:22:00 Test Item Value Reference Range Interpretation Comments Antibody Scrn (test Negative (11/27/22 1:22 code = Antibody Scrn) AM) [facility] VisionR[facility] [id number] 07:22:00 Test Item Value Reference Range Interpretation Comments ABO/Rh (test code = ABO/Rh) O [facility] [id number] 07:22:00 Test Item Value Reference Range Interpretation Comments Antibody Scrn (test Negative (11/27/22 1:22 code = Antibody Scrn) AM) [facility] [employer] [id number] 07:22:00 Test Item Value Reference Range Interpretation Comments ABO/Rh (test code = ABO/Rh) O [facility] [id number] 07:22:00 Test Item Value Reference Range Interpretation Comments Antibody Scrn (test Negative (11/27/22 1:22 code = Antibody Scrn) AM) [facility] [id number] 07:22:00 Test Item Value Reference Range Interpretation Comments ABO/Rh (test code = ABO/Rh) O POS [facility] [id number] 07:22:00 Test Item Value Reference Range Interpretation Comments Antibody Scrn (test Negative (11/27/22 1:22 code = Antibody Scrn) AM) [facility] [employer] [id number] 07:22:00 Test Item Value Reference Range Interpretation Comments ABO/Rh (test code = ABO/Rh) O [facility] W-21 [id number] 07:22:00 Test Item Value Reference Range Interpretation Comments Antibody Scrn (test Negative (11/27/22 1:22 code = Antibody Scrn) AM) [facility] VisionRazume [id number] 07:22:00 Test Item Value Reference Range Interpretation Comments ABO/Rh (test code = ABO/Rh) O [facility] [id number] 07:22:00 Test Item Value Reference Range Interpretation Comments Antibody Scrn (test Negative (11/27/22 1:22 code = Antibody Scrn) AM) [facility] VisionRazume [id number] 07:22:00 Test Item Value Reference Range Interpretation Comments ABO/Rh (test code = ABO/Rh) O [facility] W-21 [id number] 07:22:00 Test Item Value Reference Range Interpretation Comments Antibody Scrn (test Negative (11/27/22 1:22 code = Antibody Scrn) AM) [facility] VisionR[facility] [id number] 07:22:00 Test Item Value Reference Range Interpretation Comments ABO/Rh (test code = ABO/Rh) O [facility] W-21 [id number] 07:22:00 Test Item Value Reference Range Interpretation Comments Antibody Scrn (test Negative (11/27/22 1:22 code = Antibody Scrn) AM) [facility] [id number] 07:22:00 Test Item Value Reference Range Interpretation Comments ABO/Rh (test code = ABO/Rh) O POS [facility] [id number] 07:22:00 Test Item Value Reference Range Interpretation Comments Antibody Scrn (test Negative (11/27/22 1:22 code = Antibody Scrn) AM) [facility] [id number] 07:22:00 Test Item Value Reference Range Interpretation Comments ABO/Rh (test code = ABO/Rh) O POS [facility] [id number] 07:22:00 Test Item Value Reference Range Interpretation Comments Antibody Scrn (test Negative (11/27/22 1:22 code = Antibody Scrn) AM) [facility] [id number] 07:22:00 Test Item Value Reference Range Interpretation Comments ABO/Rh (test code = ABO/Rh) O POS [facility] [id number] 07:22:00 Test Item Value Reference Range Interpretation Comments Antibody Scrn (test Negative (11/27/22 1:22 code = Antibody Scrn) AM) [facility] [id number] 07:22:00 Test Item Value Reference Range Interpretation Comments ABO/Rh (test code = ABO/Rh) O POS [facility] [id number] 07:22:00 Test Item Value Reference Range Interpretation Comments Antibody Scrn (test Negative (11/27/22 1:22 code = Antibody Scrn) AM) [id number] 06:55:28 Test Item Value Reference Range Interpretation Comments RADRPT (test code EXAM: CT CERVICAL SPINE = RADRPT) WITHOUT CONTRASTDATE: 11/27/2022 0:49INDICATION: Status post fall, pain after trauma. Following trauma transfer for higher level of care request for outside film interpretation CT cervical spine without contrast performed 11/26[facility]2022 [facility] None.TECHNIQUE: Volumetric CT of the cervical spine is acquired without contrast. Axial, coronal and sagittal images are provided. IV contrast: None.DLP: Refer to CT protocol formUT SECTION: ERFINDINGS: The spine is imaged from the skull base to the level of T2/T3.Uniform Designer: Noncontributory.Bones:There is generalized decreased bone mineral density.There [...] calcifications are present.6. Agree with outside report. [facility] [id number] 06:55:28 Test Item Value Reference Range Interpretation Comments RADRPT (test code EXAM: CT CERVICAL SPINE = RADRPT) WITHOUT CONTRASTDATE: 11/27/2022 0:49INDICATION: Status post fall, pain after trauma. Following trauma transfer for higher level of care request for outside film interpretation CT cervical spine without contrast performed 11/26/2022 [facility] 2044 [facility] None.TECHNIQUE: Volumetric CT of the cervical spine is acquired without contrast. Axial, coronal and sagittal images are provided. IV contrast: None.DLP: Refer to CT protocol formUT SECTION: ERFINDINGS: The spine is imaged from the skull base to the level of T2/T3.Uniform Designer: Noncontributory.Bones:There is generalized decreased bone mineral density.There [...] calcifications are present.6. Agree with outside report. [facility] [id number] 06:55:28 Test Item Value Reference Range Interpretation Comments RADRPT (test code EXAM: CT CERVICAL SPINE = RADRPT) WITHOUT CONTRASTDATE: 11/27/2022 0:49INDICATION: Status post fall, pain after trauma. Following trauma transfer for higher level of care request for outside film interpretation CT cervical spine without contrast performed 11/26/2022 at 2044 [facility] None.TECHNIQUE: Volumetric CT of the cervical spine is acquired without contrast. Axial, coronal and sagittal images are provided. IV contrast: None.DLP: Refer to CT protocol formUT SECTION: ERFINDINGS: The spine is imaged from the skull base to the level of T2/T3.Uniform Designer: Noncontributory.Bones:There is generalized decreased bone mineral density.There [...] calcifications are present.6. Agree with outside report. [facility] [id number] 06:55:28 Test Item Value Reference Range Interpretation Comments RADRPT (test code EXAM: CT CERVICAL SPINE = RADRPT) WITHOUT CONTRASTDATE: 11/27/2022 0:49INDICATION: Status post fall, pain after trauma. Following trauma transfer for higher level of care request for outside film interpretation CT cervical spine without contrast performed 11/26/2022 at 2044 [facility] None.TECHNIQUE: Volumetric CT of the cervical spine is acquired without contrast. Axial, coronal and sagittal images are provided. IV contrast: None.DLP: Refer to CT protocol formUT SECTION: ERFINDINGS: The spine is imaged from the skull base to the level of T2/T3.Uniform Designer: Noncontributory.Bones:There is generalized decreased bone mineral density.There [...] calcifications are present.6. Agree with outside report. [facility] [id number] 06:55:28 Test Item Value Reference Range Interpretation Comments RADRPT (test code EXAM: CT CERVICAL SPINE = RADRPT) WITHOUT CONTRASTDATE: 11/27/2022 0:49INDICATION: Status post fall, pain after trauma. Following trauma transfer for higher level of care request for outside film interpretation CT cervical spine without contrast performed 11/26/2022 at 2044 [facility] None.TECHNIQUE: Volumetric CT of the cervical spine is acquired without contrast. Axial, coronal and sagittal images are provided. IV contrast: None.DLP: Refer to CT protocol formUT SECTION: ERFINDINGS: The spine is imaged from the skull base to the level of T2/T3.Uniform Designer: Noncontributory.Bones:There is generalized decreased bone mineral density.There [...] calcifications are present.6. Agree with outside report. [facility] CenterYpzvsvtJDGSRW1712-72-62 06:55:28 Test Item Value Reference Range Interpretation Comments RADRPT (test code EXAM: CT CERVICAL SPINE = RADRPT) WITHOUT CONTRASTDATE: 11/27/2022 0:49INDICATION: Status post fall, pain after trauma. Following trauma transfer for higher level of care request for outside film interpretation CT cervical spine without contrast performed 11/26/2022 at 2044 hours [facility] None.TECHNIQUE: Volumetric CT of the cervical spine is acquired without contrast. Axial, coronal and sagittal images are provided. IV contrast: None.DLP: Refer to CT protocol formUT SECTION: ERFINDINGS: The spine is imaged from the skull base to the level of T2/T3.Uniform Designer: Noncontributory.Bones:There is generalized decreased bone mineral density.There [...] calcifications are present.6. Agree with outside report. [facility] [id number] 06:55:28 Test Item Value Reference Range Interpretation Comments RADRPT (test code EXAM: CT CERVICAL SPINE = RADRPT) WITHOUT CONTRASTDATE: 11/27/2022 0:49INDICATION: Status post fall, pain after trauma. Following trauma transfer for higher level of care request for outside film interpretation CT cervical spine without contrast performed 11/26/2022 at 2044 hours [facility] None.TECHNIQUE: Volumetric CT of the cervical spine is acquired without contrast. Axial, coronal and sagittal images are provided. IV contrast: None.DLP: Refer to CT protocol formUT SECTION: ERFINDINGS: The spine is imaged from the skull base to the level of T2/T3.Uniform Designer: Noncontributory.Bones:There is generalized decreased bone mineral density.There [...] calcifications are present.6. Agree with outside report. [facility] [id number] 06:55:28 Test Item Value Reference Range Interpretation Comments RADRPT (test code EXAM: CT CERVICAL SPINE = RADRPT) WITHOUT CONTRASTDATE: 11/27/2022 0:49INDICATION: Status post fall, pain after trauma. Following trauma transfer for higher level of care request for outside film interpretation CT cervical spine without contrast performed 11/26/2022 at 2044 hours [facility] None.TECHNIQUE: Volumetric CT of the cervical spine is acquired without contrast. Axial, coronal and sagittal images are provided. IV contrast: None.DLP: Refer to CT protocol formUT SECTION: ERFINDINGS: The spine is imaged from the skull base to the level of T2/T3.Uniform Designer: Noncontributory.Bones:There is generalized decreased bone mineral density.There [...] calcifications are present.6. Agree with outside report. [facility] CenterAkhvobuEUNNSC7160-30-31 06:55:28 Test Item Value Reference Range Interpretation Comments RADRPT (test code EXAM: CT CERVICAL SPINE = RADRPT) WITHOUT CONTRASTDATE: 11/27/2022 0:49INDICATION: Status post fall, pain after trauma. Following trauma transfer for higher level of care request for outside film interpretation CT cervical spine without contrast performed 11/26/2022 at 2044 hours [facility] None.TECHNIQUE: Volumetric CT of the cervical spine is acquired without contrast. Axial, coronal and sagittal images are provided. IV contrast: None.DLP: Refer to CT protocol formUT SECTION: ERFINDINGS: The spine is imaged from the skull base to the level of T2/T3.Uniform Designer: Noncontributory.Bones:There is generalized decreased bone mineral density.There [...] calcifications are present.6. Agree with outside report. [facility] CenterUvqyypzCLIHQU4402-83-33 06:55:28 Test Item Value Reference Range Interpretation Comments RADRPT (test code EXAM: CT CERVICAL SPINE = RADRPT) WITHOUT CONTRASTDATE: 11/27/2022 0:49INDICATION: Status post fall, pain after trauma. Following trauma transfer for higher level of care request for outside film interpretation CT cervical spine without contrast performed 11/26/2022 at 2044 hours [facility]: None.TECHNIQUE: Volumetric CT of the cervical spine is acquired without contrast. Axial, coronal and sagittal images are provided. IV contrast: None.DLP: Refer to CT protocol formUT SECTION: ERFINDINGS: The spine is imaged from the skull base to the level of T2/T3.Uniform Designer: Noncontributory.Bones:There is generalized decreased bone mineral density.There [...] calcifications are present.6. Agree with outside report. [facility] CenterCgtexjvCQHCIF7339-84-00 06:55:28 Test Item Value Reference Range Interpretation Comments RADRPT (test code EXAM: CT CERVICAL SPINE = RADRPT) WITHOUT CONTRASTDATE: 11/27/2022 0:49INDICATION: Status post fall, pain after trauma. Following trauma transfer for higher level of care request for outside film interpretation CT cervical spine without contrast performed 11/26/2022 at 2044 hours [facility]: None.TECHNIQUE: Volumetric CT of the cervical spine is acquired without contrast. Axial, coronal and sagittal images are provided. IV contrast: None.DLP: Refer to CT protocol formUT SECTION: ERFINDINGS: The spine is imaged from the skull base to the level of T2/T3.Uniform Designer: Noncontributory.Bones:There is generalized decreased bone mineral density.There [...] calcifications are present.6. Agree with outside report. [place] [id number] 06:27:00 Test Item Value Reference Range Interpretation Comments Glucose Lvl (test code = Glucose Lvl) 85 70-99 [place] 457353-02-27 06:27:00 Test Item Value Reference Range Interpretation Comments BUN (test code = BUN) 28 7-22 [place] 457353-02-27 06:27:00 Test Item Value Reference Range Interpretation Comments Creatinine Lvl (test code = Creatinine 2.19 0.50-1.40 Lvl) [place] 457353-02-27 06:27:00 Test Item Value Reference Range Interpretation Comments Sodium Lvl (test code = Sodium Lvl) 143 135-145 [place] 457353-02-27 06:27:00 Test Item Value Reference Range Interpretation Comments Potassium Lvl (test code = Potassium 4.3 3.5-5.1 Lvl) [place] 457353-02-27 06:27:00 Test Item Value Reference Range Interpretation Comments Chloride Lvl (test code = Chloride Lvl) 110 95-109 [place] 457353-02-27 06:27:00 Test Item Value Reference Range Interpretation Comments CO2 (test code = CO2) 27 24-32 [place] 457353-02-27 06:27:00 Test Item Value Reference Range Interpretation Comments Calcium Lvl (test code = Calcium Lvl) 8.1 8.5-10.5 [place] 62247-02-27 06:27:00 Test Item Value Reference Range Interpretation Comments AGAP (test code = AGAP) 10.3 10.0-20.0 [place] 457353-02-27 06:27:00 Test Item Value Reference Range Interpretation Comments eGFR (test code = eGFR) 22 [facility]2023-02-27 06:27:00 Test Item Value Reference Range Interpretation Comments Total Protein (test code = Total 6.6 6.4-8.4 Protein) [facility]2023-02-27 06:27:00 Test Item Value Reference Range Interpretation Comments Albumin Lvl (test code = Albumin Lvl) 3.0 3.5-5.0 [place] 457353-02-27 06:27:00 Test Item Value Reference Range Interpretation Comments Globulin (test code = Globulin) 3.6 2.7-4.2 [place] 457353-02-27 06:27:00 Test Item Value Reference Range Interpretation Comments A/G Ratio (test code = A/G Ratio) 0.8 1 0.7-1.6 [place] 457353-02-27 06:27:00 Test Item Value Reference Range Interpretation Comments ALANINE AMINOTRANSFERASE 21 See_Comment [A utomated message] (test code = ALANINE The sys tem which AMINOTRANSFERASE) generated this result transmitted ref erence range: <=65. Th e reference range was not used to int erpret this result as normal/abnormal . [facility] CenterSAMHI Hotels [id number] 06:27:00 Test Item Value Reference Range Interpretation Comments AST (test code = AST) 17 See_Comment [Auto mated message] The system which ge nerated this result transmit sheba reference range : <=37. The reference range was not used to interpr et this result as edy l/abnormal. [facility] CenterSAMHI Hotels [id number] 06:27:00 Test Item Value Reference Range Interpretation Comments Alk Phos (test code = Alk Phos) 84 39-136 [facility] CenterSAMHI Hotels [id number] 06:27:00 Test Item Value Reference Range Interpretation Comments Bili Total (test code = Bili Total) 0.3 0.2-1.3 [place] [address]247-02-27 06:27:00 Test Item Value Reference Range Interpretation Comments Bili Direct (test code no gt See_Comment [Aut omated message] The = Bili Direct) system which generated this result tra nsmitted reference range : <=0.3. The reference r christiano was not used to int erpret this result as edy l/abnormal. [facility] [id number] 06:27:00 Test Item Value Reference Range Interpretation Comments Bili Indirect Unable to See_Comment [Automated (test code = Bili Calculate message] T he system Indirect) which generated this result transmitted reference range : <=1.0. The reference range was not used to interpret this result as normal/abnormal . [facility] [id number] 06:27:00 Test Item Value Reference Range Interpretation Comments Lactic Acid Lvl (test code = Lactic 0.5 0.5-2.2 Acid Lvl) [facility]YebxmywXMRSFOOGH4924-98-10 06:27:00 Test Item Value Reference Range Interpretation Comments Total Protein (test code = Total 6.6 6.4-8.4 Protein) [facility] TexasFleyzyvDBMJYEFKD6127-61-75 06:27:00 Test Item Value Reference Range Interpretation Comments Albumin Lvl (test code = Albumin Lvl) 3.0 3.5-5.0 [facility] TexasOhivuvjQOHAUPQXZ4643-14-52 06:27:00 Test Item Value Reference Range Interpretation Comments Globulin (test code = Globulin) 3.6 2.7-4.2 [facility] TexasLxpptdfAHFVRKEUQ7968-21-28 06:27:00 Test Item Value Reference Range Interpretation Comments A/G Ratio (test code = A/G Ratio) 0.8 1 0.7-1.6 [facility] TexasOiztmpiPAILPTHAD0086-66-16 06:27:00 Test Item Value Reference Range Interpretation Comments ALANINE AMINOTRANSFERASE 21 See_Comment [A utomated message] (test code = ALANINE The sys tem which AMINOTRANSFERASE) generated this result transmitted ref erence range: <=65. Th e reference range was not used to int erpret this result as normal/abnormal . [facility] TexasHxjnhdqWPEYIWXXG8216-97-55 06:27:00 Test Item Value Reference Range Interpretation Comments AST (test code = AST) 17 See_Comment [Auto mated message] The system which ge nerated this result transmit sheba reference range : <=37. The reference range was not used to interpr et this result as edy l/abnormal. [facility] TexasCwfagybFIFJCSYXF9281-80-84 06:27:00 Test Item Value Reference Range Interpretation Comments Alk Phos (test code = Alk Phos) 84 39-136 [place] 922233-02-27 06:27:00 Test Item Value Reference Range Interpretation Comments Bili Total (test code = Bili Total) 0.3 0.2-1.3 [facility]PymkdhbDIFIPTRTL7540-56-95 06:27:00 Test Item Value Reference Range Interpretation Comments Bili Direct (test code no gt See_Comment [Aut omated message] The = Bili Direct) system which generated this result tra nsmitted reference range : <=0.3. The reference r christiano was not used to int erpret this result as edy l/abnormal. [facility] TexasTnkdfumWARNITTER8707-11-72 06:27:00 Test Item Value Reference Range Interpretation Comments Bili Indirect Unable to See_Comment [Automated (test code = Bili Calculate message] T he system Indirect) which generated this result transmitted reference range : <=1.0. The reference range was not used to interpret this result as normal/abnormal . [facility] TexasQmqrwlfOIJBYDVJX4949-01-79 06:27:00 Test Item Value Reference Range Interpretation Comments pH Justin (test code = pH Justin) 7.29 1 7.28-7.42 [facility] TexasKiweobbBHICQFNEO6837-41-97 06:27:00 Test Item Value Reference Range Interpretation Comments pCO2 Justin (test code = pCO2 Justin) 65 38-52 [facility] TexasZnkyudoXJNCDIHYA4448-54-75 06:27:00 Test Item Value Reference Range Interpretation Comments pO2 Justin (test code = pO2 Justin) 37 20-49 [facility] TexasGddtaunBUVRUJDJG9938-90-11 06:27:00 Test Item Value Reference Range Interpretation Comments HCO3 Justin (test code = HCO3 Justin) 31 22-26 [facility] TexasDgqlbdbNBBXRTALJ7850-48-12 06:27:00 Test Item Value Reference Range Interpretation Comments BE Justin (test code = BE Justin) 3 -2-2 [facility] TexasYromwlzAAAWFFOCC8488-14-01 06:27:00 Test Item Value Reference Range Interpretation Comments O2 Sat Justin (calc) (test code = O2 Sat 63.0 40.0-70.0 Justin (calc)) [facility] TexasFuqpvkzUSMEKXRPH3056-05-44 06:27:00 Test Item Value Reference Range Interpretation Comments Temp Justin (test code = Temp Justin) 37.0 [facility] TexasDoyphkaQIROZBMXC1953-76-04 06:27:00 Test Item Value Reference Range Interpretation Comments Lactic Acid Lvl (test code = Lactic 0.5 0.5-2.2 Acid Lvl) [facility] CenterUsosdqhJAUTKYFEF4070-75-38 06:27:00 Test Item Value Reference Range Interpretation Comments TSH (test code = TSH) 0.403 0.360-3.740 [place] 963423-02-27 06:27:00 Test Item Value Reference Range Interpretation Comments WBC X 10x3 (test code = WBC X 10x3) 5.9 3.7-10.4 [facility]WsrdtzcKGYDJVGXGJ4613-02-90 06:27:00 Test Item Value Reference Range Interpretation Comments RBC X 10x6 (test code = RBC X 10x6) 3.67 4.20-5.40 [facility] HospitalXwqmuboBLYTDWQLIZ2781-41-56 06:27:00 Test Item Value Reference Range Interpretation Comments Hgb (test code = Hgb) 10.7 12.0-16.0 [facility] HospitalYitiebcGSGHXKATAW4248-42-67 06:27:00 Test Item Value Reference Range Interpretation Comments Hct (test code = Hct) 33.5 36.0-48.0 [facility] HospitalHsmotsdFFPFSKQVPD9757-14-00 06:27:00 Test Item Value Reference Range Interpretation Comments MCV (test code = MCV) 91.4 80.0-98.0 [facility] HospitalSjtdhsfIFKOCVIUWM5155-46-40 06:27:00 Test Item Value Reference Range Interpretation Comments MCH (test code = MCH) 29.3 pg 27.0-31.0 [facility] HospitalRvvafmeCACFNAVUOG5395-47-39 06:27:00 Test Item Value Reference Range Interpretation Comments MCHC (test code = MCHC) 32.0 32.0-36.0 [facility] HospitalKlezwsuVREFOPTBDG9086-57-08 06:27:00 Test Item Value Reference Range Interpretation Comments RDW (test code = RDW) 13.7 11.5-14.5 [facility] HospitalDqapuumKMNNVXTFNZ8256-69-53 06:27:00 Test Item Value Reference Range Interpretation Comments Platelet (test code = Platelet) 139 133-450 [facility] HospitalPvmevurOPORUPJZKI6880-02-76 06:27:00 Test Item Value Reference Range Interpretation Comments MPV (test code = MPV) 7.5 7.4-10.4 [facility] HospitalXbxkobyDXBYTWRRNG5030-63-39 06:27:00 Test Item Value Reference Range Interpretation Comments ACT (TEG) Rapid (test code = ACT (TEG) 121 s 86-118 Rapid) [place] 963423-02-27 06:27:00 Test Item Value Reference Range Interpretation Comments Split Point Rapid (test code = Split 0.6 min Point Rapid) [place] 963423-02-27 06:27:00 Test Item Value Reference Range Interpretation Comments R-time Rapid (test code = R-time 0.8 min 0.4-0.7 Rapid) [place] [address]-02-27 06:27:00 Test Item Value Reference Range Interpretation Comments K-time Rapid (test code = K-time 0.8 min 0.6-2.3 Rapid) [place] [address]-02-27 06:27:00 Test Item Value Reference Range Interpretation Comments Angle Rapid (test code = Angle 79 degrees 64-80 Rapid) [place] 963423-02-27 06:27:00 Test Item Value Reference Range Interpretation Comments Max Amplitude Rapid (test code = Max 71 mm 52-71 Amplitude Rapid) [place] [address]-02-27 06:27:00 Test Item Value Reference Range Interpretation Comments G-value Rapid (test code = G-value 12.1 5.0-11.6 Rapid) [place] [address]-02-27 06:27:00 Test Item Value Reference Range Interpretation Comments Estimated % Lysis Rapid 0.0 See_Comment [Au tomated message] The (test code = Estimated syste m which generated % Lysis Rapid) this result t ransmitted reference range : <=7.5. The reference r christiano was not used to int erpret this result as normal/abnormal . [facility] HospitalOslzrekQITZMJHUPW2640-81-74 06:27:00 Test Item Value Reference Range Interpretation Comments RBC Morph (test code = Normal (11/27/22 12:27 RBC Morph) AM) [place] 963423-02-27 06:27:00 Test Item Value Reference Range Interpretation Comments Plt Morph (test code = Normal (11/27/22 12:27 Plt Morph) AM) [place] [address]-02-27 06:27:00 Test Item Value Reference Range Interpretation Comments Segs (test code = Segs) 60.1 45.0-75.0 [place] 963423-02-27 06:27:00 Test Item Value Reference Range Interpretation Comments Lymphocytes (test code = Lymphocytes) 23.9 20.0-40.0 [facility] HospitalBrxfpklSIOXASCWWW3233-97-96 06:27:00 Test Item Value Reference Range Interpretation Comments Monocytes (test code = Monocytes) 9.6 2.0-12.0 [facility] HospitalQsdkykiFFXENTBBVP0629-52-15 06:27:00 Test Item Value Reference Range Interpretation Comments Eosinophils (test code = 5.2 See_Comment [A utomated message] The Eosinophils) system which ge nerated this result tra nsmitted reference range : <=4.0. The reference r christiano was not used to int erpret this result as normal/abnormal . [facility] HospitalEzmxddqACPBICOSXQ2782-60-04 06:27:00 Test Item Value Reference Range Interpretation Comments Basophils (test code = 1.2 See_Comment [Aut omated message] The Basophils) system which ge nerated this result tra nsmitted reference range : <=1.0. The reference r christiano was not used to int erpret this result as normal/abnormal . [facility] HospitalHqslkxgHRQOXPEGEG8658-33-88 06:27:00 Test Item Value Reference Range Interpretation Comments Neutrophils # (test code = Neutrophils 3.5 1.5-8.1 #) [facility] HospitalMnebwsbRAGQPTDCGQ8209-35-94 06:27:00 Test Item Value Reference Range Interpretation Comments Lymphocytes # (test code = Lymphocytes 1.4 1.0-5.5 #) [facility] HospitalPwhfbtgPXAMANTELI1582-51-44 06:27:00 Test Item Value Reference Range Interpretation Comments Monocytes # (test code 0.6 See_Comment [Aut omated message] The = Monocytes #) system which generated this result tra nsmitted reference range : <=0.8. The reference r christiano was not used to int erpret this result as normal/abnormal . [facility] HospitalEleammcYNUBCTBRYS8321-39-87 06:27:00 Test Item Value Reference Range Interpretation Comments Eosinophils # (test code 0.3 See_Comment [A utomated message] The = Eosinophils #) system whic h generated this result tra nsmitted reference range : <=0.5. The reference r christiano was not used to int erpret this result as normal/abnormal . [facility] HospitalTwuhtleZRBYEKUJRG0647-52-24:27:00 Test Item Value Reference Range Interpretation Comments Basophils # (test code 0.1 See_Comment [Aut omated message] The = Basophils #) system which generated this result tra nsmitted reference range : <=0.2. The reference r christiano was not used to int erpret this result as normal/abnormal . [facility] HospitalIrpaufmLLWRJKFMME5179-06-51 06:27:00 Test Item Value Reference Range Interpretation Comments ACT (TEG) Rapid (test code = ACT (TEG) 121 s 86-118 Rapid) [facility] HospitalTxqfjlyPIJRDHIIJU5178-96-13 06:27:00 Test Item Value Reference Range Interpretation Comments Split Point Rapid (test code = Split 0.6 min Point Rapid) [facility] HospitalDlkejxzWGUFJANFFQ9236-97-61 06:27:00 Test Item Value Reference Range Interpretation Comments R-time Rapid (test code = R-time 0.8 min 0.4-0.7 Rapid) [facility] HospitalSeypizuNYFZXHQRFL3497-29-26 06:27:00 Test Item Value Reference Range Interpretation Comments K-time Rapid (test code = K-time 0.8 min 0.6-2.3 Rapid) [place] 963423-02-27 06:27:00 Test Item Value Reference Range Interpretation Comments Angle Rapid (test code = Angle 79 degrees 64-80 Rapid) [facility] HospitalYwkmrtpKZXDQSOXAG5143-85-91 06:27:00 Test Item Value Reference Range Interpretation Comments Max Amplitude Rapid (test code = Max 71 mm 52-71 Amplitude Rapid) [facility] HospitalUmdhshjQLVSJJGJLP1840-28-40 06:27:00 Test Item Value Reference Range Interpretation Comments G-value Rapid (test code = G-value 12.1 5.0-11.6 Rapid) [facility] HospitalFympxqvAKVHMZJEWJ4869-68-88 06:27:00 Test Item Value Reference Range Interpretation Comments Estimated % Lysis Rapid 0.0 See_Comment [Au tomated message] The (test code = Estimated syste m which generated % Lysis Rapid) this result t ransmitted reference range : <=7.5. The reference r christiano was not used to int erpret this result as normal/abnormal . [facility] HospitalPwysgqpISLIWAZROF3766-24-95 06:27:00 Test Item Value Reference Range Interpretation Comments RBC Morph (test code = Normal (11/27/22 12:27 RBC Morph) AM) [place] 963423-02-27 06:27:00 Test Item Value Reference Range Interpretation Comments Plt Morph (test code = Normal (11/27/22 12:27 Plt Morph) AM) [place] 963423-02-27 06:27:00 Test Item Value Reference Range Interpretation Comments Basophils # (test code 0.1 See_Comment [Aut omated message] The = Basophils #) system which generated this result tra nsmitted reference range : <=0.2. The reference r christiano was not used to int erpret this result as normal/abnormal . [facility]2023-02-27 06:27:00 Test Item Value Reference Range Interpretation Comments Glucose Lvl (test code = Glucose Lvl) 85 70-99 [place] 457353-02-27 06:27:00 Test Item Value Reference Range Interpretation Comments BUN (test code = BUN) 28 7-22 [place] 457353-02-27 06:27:00 Test Item Value Reference Range Interpretation Comments Creatinine Lvl (test code = Creatinine 2.19 0.50-1.40 Lvl) [place] 457353-02-27 06:27:00 Test Item Value Reference Range Interpretation Comments Sodium Lvl (test code = Sodium Lvl) 143 135-145 [place] 457353-02-27 06:27:00 Test Item Value Reference Range Interpretation Comments Potassium Lvl (test code = Potassium 4.3 3.5-5.1 Lvl) [place] 457353-02-27 06:27:00 Test Item Value Reference Range Interpretation Comments Chloride Lvl (test code = Chloride Lvl) 110 95-109 [place] 457353-02-27 06:27:00 Test Item Value Reference Range Interpretation Comments CO2 (test code = CO2) 27 24-32 [place] 457353-02-27 06:27:00 Test Item Value Reference Range Interpretation Comments Calcium Lvl (test code = Calcium Lvl) 8.1 8.5-10.5 [place] 457353-02-27 06:27:00 Test Item Value Reference Range Interpretation Comments AGAP (test code = AGAP) 10.3 10.0-20.0 [place] 457353-02-27 06:27:00 Test Item Value Reference Range Interpretation Comments eGFR (test code = eGFR) 22 [facility]2023-02-27 06:27:00 Test Item Value Reference Range Interpretation Comments Total Protein (test code = Total 6.6 6.4-8.4 Protein) [facility]2023-02-27 06:27:00 Test Item Value Reference Range Interpretation Comments Albumin Lvl (test code = Albumin Lvl) 3.0 3.5-5.0 [facility]2023-02-27 06:27:00 Test Item Value Reference Range Interpretation Comments Globulin (test code = Globulin) 3.6 2.7-4.2 [place] 457353-02-27 06:27:00 Test Item Value Reference Range Interpretation Comments A/G Ratio (test code = A/G Ratio) 0.8 1 0.7-1.6 [facility]2023-02-27 06:27:00 Test Item Value Reference Range Interpretation Comments ALANINE AMINOTRANSFERASE 21 See_Comment [A utomated message] (test code = ALANINE The sys tem which AMINOTRANSFERASE) generated this result transmitted ref erence range: <=65. Th e reference range was not used to int erpret this result as normal/abnormal . [facility] KKQVJ0530-92-81 06:27:00 Test Item Value Reference Range Interpretation Comments AST (test code = AST) 17 See_Comment [Auto mated message] The system which ge nerated this result transmit sheba reference range : <=37. The reference range was not used to interpr et this result as edy l/abnormal. [facility] MPBQN9415-20-26 06:27:00 Test Item Value Reference Range Interpretation Comments Alk Phos (test code = Alk Phos) 84 39-136 [facility] CenterSAMHI Hotels PZNSZ3917-05-63 06:27:00 Test Item Value Reference Range Interpretation Comments Bili Total (test code = Bili Total) 0.3 0.2-1.3 [facility] CenterSAMHI Hotels BQDBJ3762-45-32 06:27:00 Test Item Value Reference Range Interpretation Comments Bili Direct (test code no gt See_Comment [Aut omated message] The = Bili Direct) system which generated this result tra nsmitted reference range : <=0.3. The reference r christiano was not used to int erpret this result as edy l/abnormal. [facility]2023-02-27 06:27:00 Test Item Value Reference Range Interpretation Comments Bili Indirect Unable to See_Comment [Automated (test code = Bili Calculate message] T he system Indirect) which generated this result transmitted reference range : <=1.0. The reference range was not used to interpret this result as normal/abnormal . [facility]2023-02-27 06:27:00 Test Item Value Reference Range Interpretation Comments Lactic Acid Lvl (test code = Lactic 0.5 0.5-2.2 Acid Lvl) [facility] TexasDgbtkkvBJYLIHWGO3784-17-74 06:27:00 Test Item Value Reference Range Interpretation Comments Total Protein (test code = Total 6.6 6.4-8.4 Protein) [facility] TexasLnwjeapRTFMTYJGG1478-83-79 06:27:00 Test Item Value Reference Range Interpretation Comments Albumin Lvl (test code = Albumin Lvl) 3.0 3.5-5.0 [facility] TexasNfzxalzVALMMKQRK1207-85-00 06:27:00 Test Item Value Reference Range Interpretation Comments Globulin (test code = Globulin) 3.6 2.7-4.2 [facility] TexasYigatapMLCTUUXEQ4227-92-67 06:27:00 Test Item Value Reference Range Interpretation Comments A/G Ratio (test code = A/G Ratio) 0.8 1 0.7-1.6 [facility] TexasKzltpkzCTEFIOVFL4269-00-00 06:27:00 Test Item Value Reference Range Interpretation Comments ALANINE AMINOTRANSFERASE 21 See_Comment [A utomated message] (test code = ALANINE The sys tem which AMINOTRANSFERASE) generated this result transmitted ref erence range: <=65. Th e reference range was not used to int erpret this result as normal/abnormal . [facility] TexasQsvzwiwVEKWILDAE4723-69-44 06:27:00 Test Item Value Reference Range Interpretation Comments AST (test code = AST) 17 See_Comment [Auto mated message] The system which ge nerated this result transmit sheba reference range : <=37. The reference range was not used to interpr et this result as edy l/abnormal. [facility] TexasDtyjwpkHKWJGDBKT0144-26-85 06:27:00 Test Item Value Reference Range Interpretation Comments Alk Phos (test code = Alk Phos) 84 39-136 [facility] TexasSjnmokpNOYTAVZXK5705-50-69 06:27:00 Test Item Value Reference Range Interpretation Comments Bili Total (test code = Bili Total) 0.3 0.2-1.3 [facility] TexasXycbhhyESHAFCFVU7918-23-70 06:27:00 Test Item Value Reference Range Interpretation Comments Bili Direct (test code no gt See_Comment [Aut omated message] The = Bili Direct) system which generated this result tra nsmitted reference range : <=0.3. The reference r christiano was not used to int erpret this result as edy l/abnormal. [facility] TexasOkoyaxjXFBOIFYFP6886-91-05 06:27:00 Test Item Value Reference Range Interpretation Comments Bili Indirect Unable to See_Comment [Automated (test code = Bili Calculate message] T he system Indirect) which generated this result transmitted reference range : <=1.0. The reference range was not used to interpret this result as normal/abnormal . [facility] TexasYrexfebAAFVSYPOV6269-34-86 06:27:00 Test Item Value Reference Range Interpretation Comments pH Justin (test code = pH Justin) 7.29 1 7.28-7.42 [facility] TexasLhyuwvgBNRMWGYFU2164-49-40 06:27:00 Test Item Value Reference Range Interpretation Comments pCO2 Justin (test code = pCO2 Justin) 65 38-52 [facility] TexasIoyjouaGNLDNNHTU6256-98-50 06:27:00 Test Item Value Reference Range Interpretation Comments pO2 Justin (test code = pO2 Justin) 37 20-49 [facility] TexasLunhqkmBFLMEYGKM7303-46-85 06:27:00 Test Item Value Reference Range Interpretation Comments HCO3 Justin (test code = HCO3 Justin) 31 22-26 [facility] TexasZnwpexuJNULPGIIK3829-34-34 06:27:00 Test Item Value Reference Range Interpretation Comments BE Justin (test code = BE Justin) 3 -2-2 [facility] TexasPdjtifgYJZUNDFSF6742-31-35 06:27:00 Test Item Value Reference Range Interpretation Comments O2 Sat Justin (calc) (test code = O2 Sat 63.0 40.0-70.0 Justin (calc)) [facility] TexasPdmwkyjZSOCRZGBA8202-63-79 06:27:00 Test Item Value Reference Range Interpretation Comments Temp Justin (test code = Temp Justin) 37.0 [facility] TexasThwqsgdJCILDLLAL8824-63-48 06:27:00 Test Item Value Reference Range Interpretation Comments Lactic Acid Lvl (test code = Lactic 0.5 0.5-2.2 Acid Lvl) [facility] CenterDtmyzzlYFJABVCKV9227-09-96 06:27:00 Test Item Value Reference Range Interpretation Comments TSH (test code = TSH) 0.403 0.360-3.740 [facility] HospitalQwpgfffZUKXSYDUGF3173-27-25 06:27:00 Test Item Value Reference Range Interpretation Comments WBC X 10x3 (test code = WBC X 10x3) 5.9 3.7-10.4 [facility] HospitalJrbybtcRABWUEXPTH1337-58-67 06:27:00 Test Item Value Reference Range Interpretation Comments RBC X 10x6 (test code = RBC X 10x6) 3.67 4.20-5.40 [facility] HospitalVraperpSFIXVYXKWD8072-05-42 06:27:00 Test Item Value Reference Range Interpretation Comments Hgb (test code = Hgb) 10.7 12.0-16.0 [place] 963423-02-27 06:27:00 Test Item Value Reference Range Interpretation Comments Hct (test code = Hct) 33.5 36.0-48.0 [facility] HospitalLsweggcZPLYTXEXTP2333-14-01 06:27:00 Test Item Value Reference Range Interpretation Comments MCV (test code = MCV) 91.4 80.0-98.0 [facility] HospitalPrdxtwkRSUELZJZKT7371-58-37 06:27:00 Test Item Value Reference Range Interpretation Comments MCH (test code = MCH) 29.3 pg 27.0-31.0 [facility] HospitalGzpksqxHHQJWZAIPT1126-99-64 06:27:00 Test Item Value Reference Range Interpretation Comments MCHC (test code = MCHC) 32.0 32.0-36.0 [facility] HospitalFgxbrzhMOPYWLHECX5194-38-55 06:27:00 Test Item Value Reference Range Interpretation Comments RDW (test code = RDW) 13.7 11.5-14.5 [place] 963423-02-27 06:27:00 Test Item Value Reference Range Interpretation Comments Platelet (test code = Platelet) 139 133-450 [facility] HospitalZhugahtYWPBUHMCYP3897-89-84 06:27:00 Test Item Value Reference Range Interpretation Comments MPV (test code = MPV) 7.5 7.4-10.4 [place] 963423-02-27 06:27:00 Test Item Value Reference Range Interpretation Comments ACT (TEG) Rapid (test code = ACT (TEG) 121 s 86-118 Rapid) [place] 963423-02-27 06:27:00 Test Item Value Reference Range Interpretation Comments Split Point Rapid (test code = Split 0.6 min Point Rapid) [place] 963423-02-27 06:27:00 Test Item Value Reference Range Interpretation Comments R-time Rapid (test code = R-time 0.8 min 0.4-0.7 Rapid) [place] [address]-02-27 06:27:00 Test Item Value Reference Range Interpretation Comments K-time Rapid (test code = K-time 0.8 min 0.6-2.3 Rapid) [place] [address]-02-27 06:27:00 Test Item Value Reference Range Interpretation Comments Angle Rapid (test code = Angle 79 degrees 64-80 Rapid) [place] [address]-02-27 06:27:00 Test Item Value Reference Range Interpretation Comments Max Amplitude Rapid (test code = Max 71 mm 52-71 Amplitude Rapid) [place] [address]-02-27 06:27:00 Test Item Value Reference Range Interpretation Comments G-value Rapid (test code = G-value 12.1 5.0-11.6 Rapid) [place] [address]-02-27 06:27:00 Test Item Value Reference Range Interpretation Comments Estimated % Lysis Rapid 0.0 See_Comment [Au tomated message] The (test code = Estimated syste m which generated % Lysis Rapid) this result t ransmitted reference range : <=7.5. The reference r christiano was not used to int erpret this result as normal/abnormal . [facility] HospitalUpjdhplBSGJSLWIHV1811-84-65:27:00 Test Item Value Reference Range Interpretation Comments RBC Morph (test code = Normal (11/27/22 12:27 RBC Morph) AM) [place] 963423-02-27 06:27:00 Test Item Value Reference Range Interpretation Comments Plt Morph (test code = Normal (11/27/22 12:27 Plt Morph) AM) [place] [address]-02-27 06:27:00 Test Item Value Reference Range Interpretation Comments Segs (test code = Segs) 60.1 45.0-75.0 [place] 963423-02-27 06:27:00 Test Item Value Reference Range Interpretation Comments Lymphocytes (test code = Lymphocytes) 23.9 20.0-40.0 [facility] HospitalKvwdajzDQMEAYNAWT7198-73-09 06:27:00 Test Item Value Reference Range Interpretation Comments Monocytes (test code = Monocytes) 9.6 2.0-12.0 [facility] HospitalYnftwvtKCFOMRPPZI9027-54-92 06:27:00 Test Item Value Reference Range Interpretation Comments Eosinophils (test code = 5.2 See_Comment [A utomated message] The Eosinophils) system which ge nerated this result tra nsmitted reference range : <=4.0. The reference r christiano was not used to int erpret this result as normal/abnormal . [facility] HospitalNilegsaININANVAUZ1284-07-12 06:27:00 Test Item Value Reference Range Interpretation Comments Basophils (test code = 1.2 See_Comment [Aut omated message] The Basophils) system which ge nerated this result tra nsmitted reference range : <=1.0. The reference r christiano was not used to int erpret this result as normal/abnormal . [facility] HospitalJwisbejDPZTHHKTQD1366-44-71 06:27:00 Test Item Value Reference Range Interpretation Comments Neutrophils # (test code = Neutrophils 3.5 1.5-8.1 #) [facility] HospitalGumzuwiEKCVMCGTVO6939-13-99 06:27:00 Test Item Value Reference Range Interpretation Comments Lymphocytes # (test code = Lymphocytes 1.4 1.0-5.5 #) [facility] HospitalSlhhkekKIKHJGHJHM7947-91-09 06:27:00 Test Item Value Reference Range Interpretation Comments Monocytes # (test code 0.6 See_Comment [Aut omated message] The = Monocytes #) system which generated this result tra nsmitted reference range : <=0.8. The reference r christiano was not used to int erpret this result as normal/abnormal . [facility] HospitalMybqgesLPXGNBCMVG5143-45-31 06:27:00 Test Item Value Reference Range Interpretation Comments Eosinophils # (test code 0.3 See_Comment [A utomated message] The = Eosinophils #) system whic h generated this result tra nsmitted reference range : <=0.5. The reference r christiano was not used to int erpret this result as normal/abnormal . [facility]pt[facility]auyKBKTNZYOLV0794-30-57 06:27:00 Test Item Value Reference Range Interpretation Comments Basophils # (test code 0.1 See_Comment [Aut omated message] The = Basophils #) system which generated this result tra nsmitted reference range : <=0.2. The reference r christiano was not used to int erpret this result as normal/abnormal . [facility]UilpkvbNWVJTTVBOA6904-18-08 06:27:00 Test Item Value Reference Range Interpretation Comments ACT (TEG) Rapid (test code = ACT (TEG) 121 s 86-118 Rapid) [place] 963423-02-27 06:27:00 Test Item Value Reference Range Interpretation Comments Split Point Rapid (test code = Split 0.6 min Point Rapid) [facility] HospitalMuimzttEBDNPDMRWH0767-41-79 06:27:00 Test Item Value Reference Range Interpretation Comments R-time Rapid (test code = R-time 0.8 min 0.4-0.7 Rapid) [place] 963423-02-27 06:27:00 Test Item Value Reference Range Interpretation Comments K-time Rapid (test code = K-time 0.8 min 0.6-2.3 Rapid) [place] 963423-02-27 06:27:00 Test Item Value Reference Range Interpretation Comments Angle Rapid (test code = Angle 79 degrees 64-80 Rapid) [facility] HospitalAkidysqIPJIMCMYEB4773-63-55 06:27:00 Test Item Value Reference Range Interpretation Comments Max Amplitude Rapid (test code = Max 71 mm 52-71 Amplitude Rapid) [facility] HospitalMsqdynjSIAJWLKQSD5399-30-95 06:27:00 Test Item Value Reference Range Interpretation Comments G-value Rapid (test code = G-value 12.1 5.0-11.6 Rapid) [place] 963423-02-27 06:27:00 Test Item Value Reference Range Interpretation Comments Estimated % Lysis Rapid 0.0 See_Comment [Au tomated message] The (test code = Estimated syste m which generated % Lysis Rapid) this result t ransmitted reference range : <=7.5. The reference r christiano was not used to int erpret this result as normal/abnormal . [facility] HospitalSvyulafPTYDJBDIUP9524-10-41 06:27:00 Test Item Value Reference Range Interpretation Comments RBC Morph (test code = Normal (11/27/22 12:27 RBC Morph) AM) [facility] HospitalGmslnlgQAOGNIKZUA1651-24-09 06:27:00 Test Item Value Reference Range Interpretation Comments Plt Morph (test code = Normal (11/27/22 12:27 Plt Morph) AM) [facility]zt[facility]KRZ7536[facility]89-37 06:27:00 Test Item Value Reference Range Interpretation Comments Basophils # (test code 0.1 See_Comment [Aut omated message] The = Basophils #) system which generated this result tra nsmitted reference range : <=0.2. The reference r christiano was not used to int erpret this result as normal/abnormal . [facility]2023-02-27 06:27:00 Test Item Value Reference Range Interpretation Comments Glucose Lvl (test code = Glucose Lvl) 85 70-99 [place] 457353-02-27 06:27:00 Test Item Value Reference Range Interpretation Comments BUN (test code = BUN) 28 - [facility]2023-02-27 06:27:00 Test Item Value Reference Range Interpretation Comments Creatinine Lvl (test code = Creatinine 2.19 0.50-1.40 Lvl) [facility]2023-02-27 06:27:00 Test Item Value Reference Range Interpretation Comments Sodium Lvl (test code = Sodium Lvl) 143 135-145 [facility]2023-02-27 06:27:00 Test Item Value Reference Range Interpretation Comments Potassium Lvl (test code = Potassium 4.3 3.5-5.1 Lvl) [facility]2023-02-27 06:27:00 Test Item Value Reference Range Interpretation Comments Chloride Lvl (test code = Chloride Lvl) 110 95-109 [facility]2023-02-27 06:27:00 Test Item Value Reference Range Interpretation Comments CO2 (test code = CO2) 24-32 [facility]2023-02-27 06:27:00 Test Item Value Reference Range Interpretation Comments Calcium Lvl (test code = Calcium Lvl) 8.1 8.5-10.5 [place] 457353-02-27 06:27:00 Test Item Value Reference Range Interpretation Comments AGAP (test code = AGAP) 10.3 10.0-20.0 [place] 457353-02-27 06:27:00 Test Item Value Reference Range Interpretation Comments eGFR (test code = eGFR) [place] 457353-02-27 06:27:00 Test Item Value Reference Range Interpretation Comments Total Protein (test code = Total 6.6 6.4-8.4 Protein) [place] 457353-02-27 06:27:00 Test Item Value Reference Range Interpretation Comments Albumin Lvl (test code = Albumin Lvl) 3.0 3.5-5.0 [place] 457353-02-27 06:27:00 Test Item Value Reference Range Interpretation Comments Globulin (test code = Globulin) 3.6 2.7-4.2 [place] 457353-02-27 06:27:00 Test Item Value Reference Range Interpretation Comments A/G Ratio (test code = A/G Ratio) 0.8 1 0.7-1.6 [place] [address]-02-27 06:27:00 Test Item Value Reference Range Interpretation Comments ALANINE AMINOTRANSFERASE 21 See_Comment [A utomated message] (test code = ALANINE The sys tem which AMINOTRANSFERASE) generated this result transmitted ref erence range: <=65. Th e reference range was not used to int erpret this result as normal/abnormal . [facility]SAM[facility] [id number] 06:27:00 Test Item Value Reference Range Interpretation Comments AST (test code = AST) 17 See_Comment [Auto mated message] The system which ge nerated this result transmit sheba reference range : <=37. The reference range was not used to interpr et this result as edy l/abnormal. [facility] [id number] 06:27:00 Test Item Value Reference Range Interpretation Comments Alk Phos (test code = Alk Phos) 84 39-136 [facility] [id number] 06:27:00 Test Item Value Reference Range Interpretation Comments Bili Total (test code = Bili Total) 0.3 0.2-1.3 [place] [address]-02-27 06:27:00 Test Item Value Reference Range Interpretation Comments Bili Direct (test code no gt See_Comment [Aut omated message] The = Bili Direct) system which generated this result tra nsmitted reference range : <=0.3. The reference r christiano was not used to int erpret this result as edy l/abnormal. [facility] [id number] 06:27:00 Test Item Value Reference Range Interpretation Comments Bili Indirect Unable to See_Comment [Automated (test code = Bili Calculate message] T he system Indirect) which generated this result transmitted reference range : <=1.0. The reference range was not used to interpret this result as normal/abnormal . [facility]2023-02-27 06:27:00 Test Item Value Reference Range Interpretation Comments Lactic Acid Lvl (test code = Lactic 0.5 0.5-2.2 Acid Lvl) [facility] TexasDsvyrnyESZSEXUPB9980-47-01 06:27:00 Test Item Value Reference Range Interpretation Comments Total Protein (test code = Total 6.6 6.4-8.4 Protein) [facility] TexasAjtmrfuGWHAFGPEU1431-89-86 06:27:00 Test Item Value Reference Range Interpretation Comments Albumin Lvl (test code = Albumin Lvl) 3.0 3.5-5.0 [facility] TexasZjkzgygJKVRLCXLF5746-79-22 06:27:00 Test Item Value Reference Range Interpretation Comments Globulin (test code = Globulin) 3.6 2.7-4.2 [facility] TexasEanuintEHRYAFMMJ0690-33-16 06:27:00 Test Item Value Reference Range Interpretation Comments A/G Ratio (test code = A/G Ratio) 0.8 1 0.7-1.6 [facility] TexasIizywzqJXDNVRHZA7503-50-91 06:27:00 Test Item Value Reference Range Interpretation Comments ALANINE AMINOTRANSFERASE 21 See_Comment [A utomated message] (test code = ALANINE The sys tem which AMINOTRANSFERASE) generated this result transmitted ref erence range: <=65. Th e reference range was not used to int erpret this result as normal/abnormal . [facility] TexasLrygrqgOQBPQLBIQ9110-33-56 06:27:00 Test Item Value Reference Range Interpretation Comments AST (test code = AST) 17 See_Comment [Auto mated message] The system which ge nerated this result transmit sheba reference range : <=37. The reference range was not used to interpr et this result as edy l/abnormal. [facility] TexasNbavipfNULEUHUGS4563-13-33 06:27:00 Test Item Value Reference Range Interpretation Comments Alk Phos (test code = Alk Phos) 84 39-136 [facility] TexasAewxgpaKLROKUFEW6307-39-36 06:27:00 Test Item Value Reference Range Interpretation Comments Bili Total (test code = Bili Total) 0.3 0.2-1.3 [facility] TexasWdjollsKEJEUTDBC1519-15-79 06:27:00 Test Item Value Reference Range Interpretation Comments Bili Direct (test code no gt See_Comment [Aut omated message] The = Bili Direct) system which generated this result tra nsmitted reference range : <=0.3. The reference r christiano was not used to int erpret this result as edy l/abnormal. [facility] TexasHztniszDWYNMQNXS8035-17-30 06:27:00 Test Item Value Reference Range Interpretation Comments Bili Indirect Unable to See_Comment [Automated (test code = Bili Calculate message] T he system Indirect) which generated this result transmitted reference range : <=1.0. The reference range was not used to interpret this result as normal/abnormal . [facility] TexasDvchckgMAPNDVSID4731-45-12 06:27:00 Test Item Value Reference Range Interpretation Comments pH Justin (test code = pH Justin) 7.29 1 7.28-7.42 [facility] TexasTciifxtUKCHXQFKI2257-68-73 06:27:00 Test Item Value Reference Range Interpretation Comments pCO2 Justin (test code = pCO2 Justin) 65 38-52 [facility] TexasZidzomjNCFWAAOWT6274-77-53 06:27:00 Test Item Value Reference Range Interpretation Comments pO2 Justin (test code = pO2 Justin) 37 20-49 [facility] TexasNppiysfYBAMTADOK0627-94-29 06:27:00 Test Item Value Reference Range Interpretation Comments HCO3 Justin (test code = HCO3 Justin) 31 22-26 [facility] TexasBznayrxDDPFJZDGP8011-72-20 06:27:00 Test Item Value Reference Range Interpretation Comments BE Justin (test code = BE Justin) 3 -2-2 [facility] TexasZcrfdxwNZZUDIANW8603-27-36 06:27:00 Test Item Value Reference Range Interpretation Comments O2 Sat Justin (calc) (test code = O2 Sat 63.0 40.0-70.0 Justin (calc)) [facility] TexasDhphevoLLROAKFZW5705-73-30 06:27:00 Test Item Value Reference Range Interpretation Comments Temp Justin (test code = Temp Justin) 37.0 [facility] TexasIogxqmdJOIIJGZCP8650-02-85 06:27:00 Test Item Value Reference Range Interpretation Comments Lactic Acid Lvl (test code = Lactic 0.5 0.5-2.2 Acid Lvl) [facility] TexasWoefnvjZIGSZQYKM5311-76-04 06:27:00 Test Item Value Reference Range Interpretation Comments TSH (test code = TSH) 0.403 0.360-3.740 [place] 963423-02-27 06:27:00 Test Item Value Reference Range Interpretation Comments WBC X 10x3 (test code = WBC X 10x3) 5.9 3.7-10.4 [place] [address]-02-27 06:27:00 Test Item Value Reference Range Interpretation Comments RBC X 10x6 (test code = RBC X 10x6) 3.67 4.20-5.40 [place] [address]-02-27 06:27:00 Test Item Value Reference Range Interpretation Comments Hgb (test code = Hgb) 10.7 12.0-16.0 [place] [address]-02-27 06:27:00 Test Item Value Reference Range Interpretation Comments Hct (test code = Hct) 33.5 36.0-48.0 [place] [address]-02-27 06:27:00 Test Item Value Reference Range Interpretation Comments MCV (test code = MCV) 91.4 80.0-98.0 [place] [address]-02-27 06:27:00 Test Item Value Reference Range Interpretation Comments MCH (test code = MCH) 29.3 pg 27.0-31.0 [place] 963423-02-27 06:27:00 Test Item Value Reference Range Interpretation Comments MCHC (test code = MCHC) 32.0 32.0-36.0 [place] [address]-02-27 06:27:00 Test Item Value Reference Range Interpretation Comments RDW (test code = RDW) 13.7 11.5-14.5 [place] [address]-02-27 06:27:00 Test Item Value Reference Range Interpretation Comments Platelet (test code = Platelet) 139 133-450 [place] 963423-02-27 06:27:00 Test Item Value Reference Range Interpretation Comments MPV (test code = MPV) 7.5 7.4-10.4 [place] [address]-02-27 06:27:00 Test Item Value Reference Range Interpretation Comments ACT (TEG) Rapid (test code = ACT (TEG) 121 s 86-118 Rapid) [place] 963423-02-27 06:27:00 Test Item Value Reference Range Interpretation Comments Split Point Rapid (test code = Split 0.6 min Point Rapid) [place] [address]-02-27 06:27:00 Test Item Value Reference Range Interpretation Comments R-time Rapid (test code = R-time 0.8 min 0.4-0.7 Rapid) [place] [address]-02-27 06:27:00 Test Item Value Reference Range Interpretation Comments K-time Rapid (test code = K-time 0.8 min 0.6-2.3 Rapid) [place] [address]-02-27 06:27:00 Test Item Value Reference Range Interpretation Comments Angle Rapid (test code = Angle 79 degrees 64-80 Rapid) [place] [address]-02-27 06:27:00 Test Item Value Reference Range Interpretation Comments Max Amplitude Rapid (test code = Max 71 mm 52-71 Amplitude Rapid) [place] [address]-02-27 06:27:00 Test Item Value Reference Range Interpretation Comments G-value Rapid (test code = G-value 12.1 5.0-11.6 Rapid) [place] [address]-02-27 06:27:00 Test Item Value Reference Range Interpretation Comments Estimated % Lysis Rapid 0.0 See_Comment [Au tomated message] The (test code = Estimated syste m which generated % Lysis Rapid) this result t ransmitted reference range : <=7.5. The reference r christiano was not used to int erpret this result as normal/abnormal . [place] 963423-02-27:27:00 Test Item Value Reference Range Interpretation Comments RBC Morph (test code = Normal (11/27/22 12:27 RBC Morph) AM) [place] [address]-02-27 06:27:00 Test Item Value Reference Range Interpretation Comments Plt Morph (test code = Normal (11/27/22 12:27 Plt Morph) AM) [place] 963423-02-27 06:27:00 Test Item Value Reference Range Interpretation Comments Segs (test code = Segs) 60.1 45.0-75.0 [place] 963423-02-27 06:27:00 Test Item Value Reference Range Interpretation Comments Lymphocytes (test code = Lymphocytes) 23.9 20.0-40.0 [place] 963423-02-27 06:27:00 Test Item Value Reference Range Interpretation Comments Monocytes (test code = Monocytes) 9.6 2.0-12.0 [facility] HospitalMttnehsYGLAMSYICU4115-39-48 06:27:00 Test Item Value Reference Range Interpretation Comments Eosinophils (test code = 5.2 See_Comment [A utomated message] The Eosinophils) system which ge nerated this result tra nsmitted reference range : <=4.0. The reference r christiano was not used to int erpret this result as normal/abnormal . [facility] HospitalFptnshnBLNILBUSCJ2948-81-70 06:27:00 Test Item Value Reference Range Interpretation Comments Basophils (test code = 1.2 See_Comment [Aut omated message] The Basophils) system which ge nerated this result tra nsmitted reference range : <=1.0. The reference r christiano was not used to int erpret this result as normal/abnormal . [facility] HospitalAefgjdoAVLEDNLTZS4744-79-96 06:27:00 Test Item Value Reference Range Interpretation Comments Neutrophils # (test code = Neutrophils 3.5 1.5-8.1 #) [facility] HospitalZptsokxLPLEBAUTTO2427-20-70 06:27:00 Test Item Value Reference Range Interpretation Comments Lymphocytes # (test code = Lymphocytes 1.4 1.0-5.5 #) [facility] HospitalVbularzGTGKNHYAKJ9563-33-68 06:27:00 Test Item Value Reference Range Interpretation Comments Monocytes # (test code 0.6 See_Comment [Aut omated message] The = Monocytes #) system which generated this result tra nsmitted reference range : <=0.8. The reference r christiano was not used to int erpret this result as normal/abnormal . [place] 963423-02-27 06:27:00 Test Item Value Reference Range Interpretation Comments Eosinophils # (test code 0.3 See_Comment [A utomated message] The = Eosinophils #) system whic h generated this result tra nsmitted reference range : <=0.5. The reference r christiano was not used to int erpret this result as normal/abnormal . [facility] HospitalIjzoslpANVLFUJRUE2957-49-89 06:27:00 Test Item Value Reference Range Interpretation Comments Basophils # (test code 0.1 See_Comment [Aut omated message] The = Basophils #) system which generated this result tra nsmitted reference range : <=0.2. The reference r christiano was not used to int erpret this result as normal/abnormal . [facility] HospitalQlqbbzjSRSPDRDRUE7237-92-47 06:27:00 Test Item Value Reference Range Interpretation Comments ACT (TEG) Rapid (test code = ACT (TEG) 121 s 86-118 Rapid) [place] 963423-02-27 06:27:00 Test Item Value Reference Range Interpretation Comments Split Point Rapid (test code = Split 0.6 min Point Rapid) [place] 963423-02-27 06:27:00 Test Item Value Reference Range Interpretation Comments R-time Rapid (test code = R-time 0.8 min 0.4-0.7 Rapid) [facility] HospitalZmynpniKIVFRJBSIK4655-78-59 06:27:00 Test Item Value Reference Range Interpretation Comments K-time Rapid (test code = K-time 0.8 min 0.6-2.3 Rapid) [place] 963423-02-27 06:27:00 Test Item Value Reference Range Interpretation Comments Angle Rapid (test code = Angle 79 degrees 64-80 Rapid) [facility] HospitalOzirmyrADVZWMCQJI1214-01-73 06:27:00 Test Item Value Reference Range Interpretation Comments Max Amplitude Rapid (test code = Max 71 mm 52-71 Amplitude Rapid) [facility] HospitalPpheknmXUUFRCCIXD3309-72-20 06:27:00 Test Item Value Reference Range Interpretation Comments G-value Rapid (test code = G-value 12.1 5.0-11.6 Rapid) [place] 963423-02-27 06:27:00 Test Item Value Reference Range Interpretation Comments Estimated % Lysis Rapid 0.0 See_Comment [Au tomated message] The (test code = Estimated syste m which generated % Lysis Rapid) this result t ransmitted reference range : <=7.5. The reference r christiano was not used to int erpret this result as normal/abnormal . [facility] HospitalWlndqygQVJABDLJGB1271-45-47 06:27:00 Test Item Value Reference Range Interpretation Comments RBC Morph (test code = Normal (11/27/22 12:27 RBC Morph) AM) [facility] HospitalMrznzxdTENEMRAOHV6003-81-12 06:27:00 Test Item Value Reference Range Interpretation Comments Plt Morph (test code = Normal (11/27/22 12:27 Plt Morph) AM) [facility]XivreywJDGNHQTCLD5446-80-22 06:27:00 Test Item Value Reference Range Interpretation Comments Basophils # (test code 0.1 See_Comment [Aut omated message] The = Basophils #) system which generated this result tra nsmitted reference range : <=0.2. The reference r christiano was not used to int erpret this result as normal/abnormal . [facility]2023-02-27 06:27:00 Test Item Value Reference Range Interpretation Comments Glucose Lvl (test code = Glucose Lvl) 85 70-99 [place] 457353-02-27 06:27:00 Test Item Value Reference Range Interpretation Comments BUN (test code = BUN) 28 7- [place] 457353-02-27 06:27:00 Test Item Value Reference Range Interpretation Comments Creatinine Lvl (test code = Creatinine 2.19 0.50-1.40 Lvl) [place] 457353-02-27 06:27:00 Test Item Value Reference Range Interpretation Comments Sodium Lvl (test code = Sodium Lvl) 143 135-145 [place] 457353-02-27 06:27:00 Test Item Value Reference Range Interpretation Comments Potassium Lvl (test code = Potassium 4.3 3.5-5.1 Lvl) [facility]2023-02-27 06:27:00 Test Item Value Reference Range Interpretation Comments Chloride Lvl (test code = Chloride Lvl) 110 95-109 [facility]2023-02-27 06:27:00 Test Item Value Reference Range Interpretation Comments CO2 (test code = CO2) 24-32 [place] 457353-02-27 06:27:00 Test Item Value Reference Range Interpretation Comments Calcium Lvl (test code = Calcium Lvl) 8.1 8.5-10.5 [place] 457353-02-27 06:27:00 Test Item Value Reference Range Interpretation Comments AGAP (test code = AGAP) 10.3 10.0-20.0 [place] 457353-02-27 06:27:00 Test Item Value Reference Range Interpretation Comments eGFR (test code = eGFR) [place] 457353-02-27 06:27:00 Test Item Value Reference Range Interpretation Comments Total Protein (test code = Total 6.6 6.4-8.4 Protein) [facility]2023-02-27 06:27:00 Test Item Value Reference Range Interpretation Comments Albumin Lvl (test code = Albumin Lvl) 3.0 3.5-5.0 [facility]2023-02-27 06:27:00 Test Item Value Reference Range Interpretation Comments Globulin (test code = Globulin) 3.6 2.7-4.2 [facility] [id number] 06:27:00 Test Item Value Reference Range Interpretation Comments A/G Ratio (test code = A/G Ratio) 0.8 1 0.7-1.6 [place] 457353-02-27 06:27:00 Test Item Value Reference Range Interpretation Comments ALANINE AMINOTRANSFERASE 21 See_Comment [A utomated message] (test code = ALANINE The sys tem which AMINOTRANSFERASE) generated this result transmitted ref erence range: <=65. Th e reference range was not used to int erpret this result as normal/abnormal . [facility] CenterSAM[facility] [id number] 06:27:00 Test Item Value Reference Range Interpretation Comments AST (test code = AST) 17 See_Comment [Auto mated message] The system which ge nerated this result transmit sheba reference range : <=37. The reference range was not used to interpr et this result as edy l/abnormal. [facility] [id number] 06:27:00 Test Item Value Reference Range Interpretation Comments Alk Phos (test code = Alk Phos) 84 39-136 [facility] CenterSAM[facility] [id number] 06:27:00 Test Item Value Reference Range Interpretation Comments Bili Total (test code = Bili Total) 0.3 0.2-1.3 [facility]SAM[facility] [id number] 06:27:00 Test Item Value Reference Range Interpretation Comments Bili Direct (test code no gt See_Comment [Aut omated message] The = Bili Direct) system which generated this result tra nsmitted reference range : <=0.3. The reference r christiano was not used to int erpret this result as edy l/abnormal. [facility]aleG[facility] [id number] 06:27:00 Test Item Value Reference Range Interpretation Comments Bili Indirect Unable to See_Comment [Automated (test code = Bili Calculate message] T he system Indirect) which generated this result transmitted reference range : <=1.0. The reference range was not used to interpret this result as normal/abnormal . [facility]2023-02-27 06:27:00 Test Item Value Reference Range Interpretation Comments Lactic Acid Lvl (test code = Lactic 0.5 0.5-2.2 Acid Lvl) [facility] TexasMsnxyakFWXQHLFBL2005-47-16 06:27:00 Test Item Value Reference Range Interpretation Comments Total Protein (test code = Total 6.6 6.4-8.4 Protein) [facility] TexasLfxzacoIIVUJTVOT3324-69-52 06:27:00 Test Item Value Reference Range Interpretation Comments Albumin Lvl (test code = Albumin Lvl) 3.0 3.5-5.0 [place] [address]-02-27 06:27:00 Test Item Value Reference Range Interpretation Comments Globulin (test code = Globulin) 3.6 2.7-4.2 [facility] TexasUaeigukEHJRDGZEP4106-29-26 06:27:00 Test Item Value Reference Range Interpretation Comments A/G Ratio (test code = A/G Ratio) 0.8 1 0.7-1.6 [facility] TexasZdjjfiuGWKQAATMD3617-91-34 06:27:00 Test Item Value Reference Range Interpretation Comments ALANINE AMINOTRANSFERASE 21 See_Comment [A utomated message] (test code = ALANINE The sys tem which AMINOTRANSFERASE) generated this result transmitted ref erence range: <=65. Th e reference range was not used to int erpret this result as normal/abnormal . [facility] TexasOkvzulhGGXAVKASM1923-22-49 06:27:00 Test Item Value Reference Range Interpretation Comments AST (test code = AST) 17 See_Comment [Auto mated message] The system which ge nerated this result transmit sheba reference range : <=37. The reference range was not used to interpr et this result as edy l/abnormal. [facility]OqgvvwnCIOBGMYZW6635-11-22 06:27:00 Test Item Value Reference Range Interpretation Comments Alk Phos (test code = Alk Phos) 84 39-136 [facility] TexasFqeoiwdEPLSFKJLG6597-72-88 06:27:00 Test Item Value Reference Range Interpretation Comments Bili Total (test code = Bili Total) 0.3 0.2-1.3 [facility] TexasSxlhfpfGQQALZCTK4829-24-20 06:27:00 Test Item Value Reference Range Interpretation Comments Bili Direct (test code no gt See_Comment [Aut omated message] The = Bili Direct) system which generated this result tra nsmitted reference range : <=0.3. The reference r christiano was not used to int erpret this result as edy l/abnormal. [facility] TexasNfyhauoVBWUNEKLO8720-20-97 06:27:00 Test Item Value Reference Range Interpretation Comments Bili Indirect Unable to See_Comment [Automated (test code = Bili Calculate message] T he system Indirect) which generated this result transmitted reference range : <=1.0. The reference range was not used to interpret this result as normal/abnormal . [facility] TexasAfcktseJVKHCLNLR2634-12-03 06:27:00 Test Item Value Reference Range Interpretation Comments pH Justin (test code = pH Justin) 7.29 1 7.28-7.42 [facility] TexasBogyjwdQBNCICOXP5368-01-21 06:27:00 Test Item Value Reference Range Interpretation Comments pCO2 Justin (test code = pCO2 Justin) 65 38-52 [facility] TexasWfenvzdDOHGRNMYR3493-47-09 06:27:00 Test Item Value Reference Range Interpretation Comments pO2 Justin (test code = pO2 Justin) 37 20-49 [facility] TexasFuomstaRBFFQMCLB3515-16-31 06:27:00 Test Item Value Reference Range Interpretation Comments HCO3 Justin (test code = HCO3 Justin) 31 22-26 [facility] TexasUtkaenwSMALNETJJ8264-22-88 06:27:00 Test Item Value Reference Range Interpretation Comments BE Justin (test code = BE Justin) 3 -2-2 [facility] TexasQrwtcktKLUZBROZD6148-19-68 06:27:00 Test Item Value Reference Range Interpretation Comments O2 Sat Justin (calc) (test code = O2 Sat 63.0 40.0-70.0 Justin (calc)) [facility] TexasGgywtvyKIOIJQAPC8145-21-28 06:27:00 Test Item Value Reference Range Interpretation Comments Temp Justin (test code = Temp Justin) 37.0 [facility] TexasRfdgusmQRVQNIIPW6436-75-05 06:27:00 Test Item Value Reference Range Interpretation Comments Lactic Acid Lvl (test code = Lactic 0.5 0.5-2.2 Acid Lvl) [facility] TexasRabebsqGAVZWDUTN7882-56-65 06:27:00 Test Item Value Reference Range Interpretation Comments TSH (test code = TSH) 0.403 0.360-3.740 [facility]QqyhsgoTAMTSYYKNW2717-93-09 06:27:00 Test Item Value Reference Range Interpretation Comments WBC X 10x3 (test code = WBC X 10x3) 5.9 3.7-10.4 [facility] HospitalHgtwgblXBPEODKLVL8697-55-41 06:27:00 Test Item Value Reference Range Interpretation Comments RBC X 10x6 (test code = RBC X 10x6) 3.67 4.20-5.40 [facility] HospitalXdiozxgXHTGVTDFLQ7418-74-40 06:27:00 Test Item Value Reference Range Interpretation Comments Hgb (test code = Hgb) 10.7 12.0-16.0 [facility] HospitalUpgkdfyLBBRDCEBRO0263-72-86 06:27:00 Test Item Value Reference Range Interpretation Comments Hct (test code = Hct) 33.5 36.0-48.0 [facility] HospitalMjmpoftBLBTTDFDMG0614-28-89 06:27:00 Test Item Value Reference Range Interpretation Comments MCV (test code = MCV) 91.4 80.0-98.0 [facility] HospitalYitoamvFFUSBVECRA6077-90-31 06:27:00 Test Item Value Reference Range Interpretation Comments MCH (test code = MCH) 29.3 pg 27.0-31.0 [facility] HospitalMirimtdGYVZZKDXIU0429-66-60 06:27:00 Test Item Value Reference Range Interpretation Comments MCHC (test code = MCHC) 32.0 32.0-36.0 [facility] HospitalOsxctgnSIPMQAYDMR2860-57-20 06:27:00 Test Item Value Reference Range Interpretation Comments RDW (test code = RDW) 13.7 11.5-14.5 [facility] HospitalKanwnyqTLWMJZVDVS2735-46-86 06:27:00 Test Item Value Reference Range Interpretation Comments Platelet (test code = Platelet) 139 133-450 [facility] HospitalKccdljbZVYOWEZKGM6340-50-41 06:27:00 Test Item Value Reference Range Interpretation Comments MPV (test code = MPV) 7.5 7.4-10.4 [facility] HospitalVxuvvrkIFYDAAAVRR5301-79-52 06:27:00 Test Item Value Reference Range Interpretation Comments ACT (TEG) Rapid (test code = ACT (TEG) 121 s 86-118 Rapid) [place] 963423-02-27 06:27:00 Test Item Value Reference Range Interpretation Comments Split Point Rapid (test code = Split 0.6 min Point Rapid) [place] [address]-02-27 06:27:00 Test Item Value Reference Range Interpretation Comments R-time Rapid (test code = R-time 0.8 min 0.4-0.7 Rapid) [place] [address]-02-27 06:27:00 Test Item Value Reference Range Interpretation Comments K-time Rapid (test code = K-time 0.8 min 0.6-2.3 Rapid) [place] [address]-02-27 06:27:00 Test Item Value Reference Range Interpretation Comments Angle Rapid (test code = Angle 79 degrees 64-80 Rapid) [place] [address]-02-27 06:27:00 Test Item Value Reference Range Interpretation Comments Max Amplitude Rapid (test code = Max 71 mm 52-71 Amplitude Rapid) [place] [address]-02-27 06:27:00 Test Item Value Reference Range Interpretation Comments G-value Rapid (test code = G-value 12.1 5.0-11.6 Rapid) [place] [address]-02-27 06:27:00 Test Item Value Reference Range Interpretation Comments Estimated % Lysis Rapid 0.0 See_Comment [Au tomated message] The (test code = Estimated syste m which generated % Lysis Rapid) this result t ransmitted reference range : <=7.5. The reference r christiano was not used to int erpret this result as normal/abnormal . [facility] HospitalDcowoliPQMVUYLWWW8937-11-06 06:27:00 Test Item Value Reference Range Interpretation Comments RBC Morph (test code = Normal (11/27/22 12:27 RBC Morph) AM) [place] [address]-02-27 06:27:00 Test Item Value Reference Range Interpretation Comments Plt Morph (test code = Normal (11/27/22 12:27 Plt Morph) AM) [place] [address]-02-27 06:27:00 Test Item Value Reference Range Interpretation Comments Segs (test code = Segs) 60.1 45.0-75.0 [place] [address]-02-27 06:27:00 Test Item Value Reference Range Interpretation Comments Lymphocytes (test code = Lymphocytes) 23.9 20.0-40.0 [place] 963423-02-27 06:27:00 Test Item Value Reference Range Interpretation Comments Monocytes (test code = Monocytes) 9.6 2.0-12.0 [place] 963423-02-27 06:27:00 Test Item Value Reference Range Interpretation Comments Eosinophils (test code = 5.2 See_Comment [A utomated message] The Eosinophils) system which ge nerated this result tra nsmitted reference range : <=4.0. The reference r christiano was not used to int erpret this result as normal/abnormal . [place] 963423-02-27 06:27:00 Test Item Value Reference Range Interpretation Comments Basophils (test code = 1.2 See_Comment [Aut omated message] The Basophils) system which ge nerated this result tra nsmitted reference range : <=1.0. The reference r christiano was not used to int erpret this result as normal/abnormal . [place] 963423-02-27 06:27:00 Test Item Value Reference Range Interpretation Comments Neutrophils # (test code = Neutrophils 3.5 1.5-8.1 #) [place] 963423-02-27 06:27:00 Test Item Value Reference Range Interpretation Comments Lymphocytes # (test code = Lymphocytes 1.4 1.0-5.5 #) [facility] HospitalLpmyipzMRQMODYGLO4266-08-13 06:27:00 Test Item Value Reference Range Interpretation Comments Monocytes # (test code 0.6 See_Comment [Aut omated message] The = Monocytes #) system which generated this result tra nsmitted reference range : <=0.8. The reference r christiano was not used to int erpret this result as normal/abnormal . [place] 963423-02-27 06:27:00 Test Item Value Reference Range Interpretation Comments Eosinophils # (test code 0.3 See_Comment [A utomated message] The = Eosinophils #) system whic h generated this result tra nsmitted reference range : <=0.5. The reference r christiano was not used to int erpret this result as normal/abnormal . [place] 963423-02-27 06:27:00 Test Item Value Reference Range Interpretation Comments Basophils # (test code 0.1 See_Comment [Aut omated message] The = Basophils #) system which generated this result tra nsmitted reference range : <=0.2. The reference r christiano was not used to int erpret this result as normal/abnormal . [facility] HospitalMnxnxlfSPXLDDDWXN0291-39-15 06:27:00 Test Item Value Reference Range Interpretation Comments ACT (TEG) Rapid (test code = ACT (TEG) 121 s 86-118 Rapid) [place] 963423-02-27 06:27:00 Test Item Value Reference Range Interpretation Comments Split Point Rapid (test code = Split 0.6 min Point Rapid) [place] 963423-02-27 06:27:00 Test Item Value Reference Range Interpretation Comments R-time Rapid (test code = R-time 0.8 min 0.4-0.7 Rapid) [place] 963423-02-27 06:27:00 Test Item Value Reference Range Interpretation Comments K-time Rapid (test code = K-time 0.8 min 0.6-2.3 Rapid) [place] 963423-02-27 06:27:00 Test Item Value Reference Range Interpretation Comments Angle Rapid (test code = Angle 79 degrees 64-80 Rapid) [facility] HospitalZlglehmCDCBCLGNTL6612-37-63 06:27:00 Test Item Value Reference Range Interpretation Comments Max Amplitude Rapid (test code = Max 71 mm 52-71 Amplitude Rapid) [place] 963423-02-27 06:27:00 Test Item Value Reference Range Interpretation Comments G-value Rapid (test code = G-value 12.1 5.0-11.6 Rapid) [place] 963423-02-27 06:27:00 Test Item Value Reference Range Interpretation Comments Estimated % Lysis Rapid 0.0 See_Comment [Au tomated message] The (test code = Estimated syste m which generated % Lysis Rapid) this result t ransmitted reference range : <=7.5. The reference r christiano was not used to int erpret this result as normal/abnormal . [facility] HospitalCjmsjywTXZTSSLVFQ4323-60-74 06:27:00 Test Item Value Reference Range Interpretation Comments RBC Morph (test code = Normal (11/27/22 12:27 RBC Morph) AM) [place] 963423-02-27 06:27:00 Test Item Value Reference Range Interpretation Comments Plt Morph (test code = Normal (11/27/22 12:27 Plt Morph) AM) [facility]oudeehTOIKFYXNVK1789-46-34 06:27:00 Test Item Value Reference Range Interpretation Comments Basophils # (test code 0.1 See_Comment [Aut omated message] The = Basophils #) system which generated this result tra nsmitted reference range : <=0.2. The reference r christiano was not used to int erpret this result as normal/abnormal . [facility]2023-02-27 06:27:00 Test Item Value Reference Range Interpretation Comments Glucose Lvl (test code = Glucose Lvl) 85 70-99 [place] 457353-02-27 06:27:00 Test Item Value Reference Range Interpretation Comments BUN (test code = BUN) 28 7-22 [place] 457353-02-27 06:27:00 Test Item Value Reference Range Interpretation Comments Creatinine Lvl (test code = Creatinine 2.19 0.50-1.40 Lvl) [place] 457353-02-27 06:27:00 Test Item Value Reference Range Interpretation Comments Sodium Lvl (test code = Sodium Lvl) 143 135-145 [place] 457353-02-27 06:27:00 Test Item Value Reference Range Interpretation Comments Potassium Lvl (test code = Potassium 4.3 3.5-5.1 Lvl) [facility]2023-02-27 06:27:00 Test Item Value Reference Range Interpretation Comments Chloride Lvl (test code = Chloride Lvl) 110 95-109 [place] 457353-02-27 06:27:00 Test Item Value Reference Range Interpretation Comments CO2 (test code = CO2) 27 24-32 [place] 457353-02-27 06:27:00 Test Item Value Reference Range Interpretation Comments Calcium Lvl (test code = Calcium Lvl) 8.1 8.5-10.5 [place] 457353-02-27 06:27:00 Test Item Value Reference Range Interpretation Comments AGAP (test code = AGAP) 10.3 10.0-20.0 [place] 457353-02-27 06:27:00 Test Item Value Reference Range Interpretation Comments eGFR (test code = eGFR) 22 [place] 457353-02-27 06:27:00 Test Item Value Reference Range Interpretation Comments Total Protein (test code = Total 6.6 6.4-8.4 Protein) [place] 457353-02-27 06:27:00 Test Item Value Reference Range Interpretation Comments Albumin Lvl (test code = Albumin Lvl) 3.0 3.5-5.0 [place] 457353-02-27 06:27:00 Test Item Value Reference Range Interpretation Comments Globulin (test code = Globulin) 3.6 2.7-4.2 [place] 457353-02-27 06:27:00 Test Item Value Reference Range Interpretation Comments A/G Ratio (test code = A/G Ratio) 0.8 1 0.7-1.6 [place] 457353-02-27 06:27:00 Test Item Value Reference Range Interpretation Comments ALANINE AMINOTRANSFERASE 21 See_Comment [A utomated message] (test code = ALANINE The sys tem which AMINOTRANSFERASE) generated this result transmitted ref erence range: <=65. Th e reference range was not used to int erpret this result as normal/abnormal . [facility]SAM[facility] SEJZL9684-92-72 06:27:00 Test Item Value Reference Range Interpretation Comments AST (test code = AST) 17 See_Comment [Auto mated message] The system which ge nerated this result transmit sheba reference range : <=37. The reference range was not used to interpr et this result as edy l/abnormal. [facility]SAM[facility] DCHBI3792-90-32 06:27:00 Test Item Value Reference Range Interpretation Comments Alk Phos (test code = Alk Phos) 84 39-136 [facility]SAM[facility] PPTQM8275-21-15 06:27:00 Test Item Value Reference Range Interpretation Comments Bili Total (test code = Bili Total) 0.3 0.2-1.3 [place] [address]-02-27 06:27:00 Test Item Value Reference Range Interpretation Comments Bili Direct (test code no gt See_Comment [Aut omated message] The = Bili Direct) system which generated this result tra nsmitted reference range : <=0.3. The reference r christiano was not used to int erpret this result as edy l/abnormal. [facility]SAM[facility] LXGNH1814-16-23 06:27:00 Test Item Value Reference Range Interpretation Comments Bili Indirect Unable to See_Comment [Automated (test code = Bili Calculate message] T he system Indirect) which generated this result transmitted reference range : <=1.0. The reference range was not used to interpret this result as normal/abnormal . [facility]2023-02-27 06:27:00 Test Item Value Reference Range Interpretation Comments Lactic Acid Lvl (test code = Lactic 0.5 0.5-2.2 Acid Lvl) [place] 922233-02-27 06:27:00 Test Item Value Reference Range Interpretation Comments Total Protein (test code = Total 6.6 6.4-8.4 Protein) [facility] TexasHamummePASOAESPC2912-01-60 06:27:00 Test Item Value Reference Range Interpretation Comments Albumin Lvl (test code = Albumin Lvl) 3.0 3.5-5.0 [place] [address]-02-27 06:27:00 Test Item Value Reference Range Interpretation Comments Globulin (test code = Globulin) 3.6 2.7-4.2 [place] [address]-02-27 06:27:00 Test Item Value Reference Range Interpretation Comments A/G Ratio (test code = A/G Ratio) 0.8 1 0.7-1.6 [place] [address]-02-27 06:27:00 Test Item Value Reference Range Interpretation Comments ALANINE AMINOTRANSFERASE 21 See_Comment [A utomated message] (test code = ALANINE The sys tem which AMINOTRANSFERASE) generated this result transmitted ref erence range: <=65. Th e reference range was not used to int erpret this result as normal/abnormal . [facility] TexasZyxstauIFDVYRGIF3086-66-59 06:27:00 Test Item Value Reference Range Interpretation Comments AST (test code = AST) 17 See_Comment [Auto mated message] The system which ge nerated this result transmit sheba reference range : <=37. The reference range was not used to interpr et this result as edy l/abnormal. [facility] TexasKycyaoyAQXJNYYWF0648-79-93 06:27:00 Test Item Value Reference Range Interpretation Comments Alk Phos (test code = Alk Phos) 84 39-136 [facility] TexasMhrsthiQEFMZJDMQ9084-91-11 06:27:00 Test Item Value Reference Range Interpretation Comments Bili Total (test code = Bili Total) 0.3 0.2-1.3 [facility] TexasBevkidaHIWHPQNCI9547-09-53 06:27:00 Test Item Value Reference Range Interpretation Comments Bili Direct (test code no gt See_Comment [Aut omated message] The = Bili Direct) system which generated this result tra nsmitted reference range : <=0.3. The reference r christiano was not used to int erpret this result as edy l/abnormal. [facility] TexasHxaoxocYDUQPEQSB4515-39-51 06:27:00 Test Item Value Reference Range Interpretation Comments Bili Indirect Unable to See_Comment [Automated (test code = Bili Calculate message] T he system Indirect) which generated this result transmitted reference range : <=1.0. The reference range was not used to interpret this result as normal/abnormal . [facility] TexasXxlxigfSWRPICOJJ2619-94-23 06:27:00 Test Item Value Reference Range Interpretation Comments pH Justin (test code = pH Justin) 7.29 1 7.28-7.42 [facility] TexasWwpramfKXDBMTYWN6215-32-97 06:27:00 Test Item Value Reference Range Interpretation Comments pCO2 Justin (test code = pCO2 Justin) 65 38-52 [facility] TexasUkprrguKXNKFEESA5537-17-48 06:27:00 Test Item Value Reference Range Interpretation Comments pO2 Justin (test code = pO2 Justin) 37 20-49 [facility] TexasGhafqjhTIPRVPGAN2269-77-44 06:27:00 Test Item Value Reference Range Interpretation Comments HCO3 Justin (test code = HCO3 Justin) 31 22-26 [facility] TexasJwovakmXPMDDAIHY4363-15-82 06:27:00 Test Item Value Reference Range Interpretation Comments BE Justin (test code = BE Justin) 3 -2-2 [facility] TexasWfckcmnUAOIVGZUT7690-17-84 06:27:00 Test Item Value Reference Range Interpretation Comments O2 Sat Justin (calc) (test code = O2 Sat 63.0 40.0-70.0 Justin (calc)) [facility] TexasUxuxvzvVCIJJLXQI5900-82-78 06:27:00 Test Item Value Reference Range Interpretation Comments Temp Justin (test code = Temp Justin) 37.0 [facility] TexasUwadwtwGSEFLKMWM3329-54-87 06:27:00 Test Item Value Reference Range Interpretation Comments Lactic Acid Lvl (test code = Lactic 0.5 0.5-2.2 Acid Lvl) [facility] TexasQxnwxxjOUDKAKXKX9179-16-35 06:27:00 Test Item Value Reference Range Interpretation Comments TSH (test code = TSH) 0.403 0.360-3.740 [place] 963423-02-27 06:27:00 Test Item Value Reference Range Interpretation Comments WBC X 10x3 (test code = WBC X 10x3) 5.9 3.7-10.4 [place] 963423-02-27 06:27:00 Test Item Value Reference Range Interpretation Comments RBC X 10x6 (test code = RBC X 10x6) 3.67 4.20-5.40 [place] 963423-02-27 06:27:00 Test Item Value Reference Range Interpretation Comments Hgb (test code = Hgb) 10.7 12.0-16.0 [place] 963423-02-27 06:27:00 Test Item Value Reference Range Interpretation Comments Hct (test code = Hct) 33.5 36.0-48.0 [place] 963423-02-27 06:27:00 Test Item Value Reference Range Interpretation Comments MCV (test code = MCV) 91.4 80.0-98.0 [place] 963423-02-27 06:27:00 Test Item Value Reference Range Interpretation Comments MCH (test code = MCH) 29.3 pg 27.0-31.0 [facility] HospitalBrvwxzwFGRXEDVNQW1030-41-62 06:27:00 Test Item Value Reference Range Interpretation Comments MCHC (test code = MCHC) 32.0 32.0-36.0 [place] 963423-02-27 06:27:00 Test Item Value Reference Range Interpretation Comments RDW (test code = RDW) 13.7 11.5-14.5 [place] 963423-02-27 06:27:00 Test Item Value Reference Range Interpretation Comments Platelet (test code = Platelet) 139 133-450 [place] 963423-02-27 06:27:00 Test Item Value Reference Range Interpretation Comments MPV (test code = MPV) 7.5 7.4-10.4 [place] [address]-02-27 06:27:00 Test Item Value Reference Range Interpretation Comments ACT (TEG) Rapid (test code = ACT (TEG) 121 s 86-118 Rapid) [facility] HospitalJvtazknSPMFFBNZND1346-46-90 06:27:00 Test Item Value Reference Range Interpretation Comments Split Point Rapid (test code = Split 0.6 min Point Rapid) [place] 963423-02-27 06:27:00 Test Item Value Reference Range Interpretation Comments R-time Rapid (test code = R-time 0.8 min 0.4-0.7 Rapid) [facility] HospitalTpequtcKAFOYOWPQP0878-96-40 06:27:00 Test Item Value Reference Range Interpretation Comments K-time Rapid (test code = K-time 0.8 min 0.6-2.3 Rapid) [facility] HospitalDdxbpqsIIEVAMMWOG0423-78-21 06:27:00 Test Item Value Reference Range Interpretation Comments Angle Rapid (test code = Angle 79 degrees 64-80 Rapid) [place] 963423-02-27 06:27:00 Test Item Value Reference Range Interpretation Comments Max Amplitude Rapid (test code = Max 71 mm 52-71 Amplitude Rapid) [place] 963423-02-27 06:27:00 Test Item Value Reference Range Interpretation Comments G-value Rapid (test code = G-value 12.1 5.0-11.6 Rapid) [facility] HospitalCpiqxodXBRVYDITCV9140-79-48 06:27:00 Test Item Value Reference Range Interpretation Comments Estimated % Lysis Rapid 0.0 See_Comment [Au tomated message] The (test code = Estimated syste m which generated % Lysis Rapid) this result t ransmitted reference range : <=7.5. The reference r christiano was not used to int erpret this result as normal/abnormal . [facility] HospitalSpdtmpoKFCPIHCWYQ5066-61-43 06:27:00 Test Item Value Reference Range Interpretation Comments RBC Morph (test code = Normal (11/27/22 12:27 RBC Morph) AM) [place] 963423-02-27 06:27:00 Test Item Value Reference Range Interpretation Comments Plt Morph (test code = Normal (11/27/22 12:27 Plt Morph) AM) [facility] HospitalAnuhuiiYNSRMUSVOJ4511-22-76 06:27:00 Test Item Value Reference Range Interpretation Comments Segs (test code = Segs) 60.1 45.0-75.0 [place] 963423-02-27 06:27:00 Test Item Value Reference Range Interpretation Comments Lymphocytes (test code = Lymphocytes) 23.9 20.0-40.0 [place] 963423-02-27 06:27:00 Test Item Value Reference Range Interpretation Comments Monocytes (test code = Monocytes) 9.6 2.0-12.0 [place] 963423-02-27 06:27:00 Test Item Value Reference Range Interpretation Comments Eosinophils (test code = 5.2 See_Comment [A utomated message] The Eosinophils) system which ge nerated this result tra nsmitted reference range : <=4.0. The reference r christiano was not used to int erpret this result as normal/abnormal . [place] [address]-02-27 06:27:00 Test Item Value Reference Range Interpretation Comments Basophils (test code = 1.2 See_Comment [Aut omated message] The Basophils) system which ge nerated this result tra nsmitted reference range : <=1.0. The reference r christiano was not used to int erpret this result as normal/abnormal . [place] 963423-02-27 06:27:00 Test Item Value Reference Range Interpretation Comments Neutrophils # (test code = Neutrophils 3.5 1.5-8.1 #) [place] [address]-02-27 06:27:00 Test Item Value Reference Range Interpretation Comments Lymphocytes # (test code = Lymphocytes 1.4 1.0-5.5 #) [place] [address]-02-27 06:27:00 Test Item Value Reference Range Interpretation Comments Monocytes # (test code 0.6 See_Comment [Aut omated message] The = Monocytes #) system which generated this result tra nsmitted reference range : <=0.8. The reference r christiano was not used to int erpret this result as normal/abnormal . [place] 963423-02-27 06:27:00 Test Item Value Reference Range Interpretation Comments Eosinophils # (test code 0.3 See_Comment [A utomated message] The = Eosinophils #) system whic h generated this result tra nsmitted reference range : <=0.5. The reference r christiano was not used to int erpret this result as normal/abnormal . [place] [id number] 06:27:00 Test Item Value Reference Range Interpretation Comments Basophils # (test code 0.1 See_Comment [Aut omated message] The = Basophils #) system which generated this result tra nsmitted reference range : <=0.2. The reference r christiano was not used to int erpret this result as normal/abnormal . [facility] 06:27:00 Test Item Value Reference Range Interpretation Comments ACT (TEG) Rapid (test code = ACT (TEG) 121 s 86-118 Rapid) [place] [address]-02-27 06:27:00 Test Item Value Reference Range Interpretation Comments Split Point Rapid (test code = Split 0.6 min Point Rapid) [place] [address]-02-27 06:27:00 Test Item Value Reference Range Interpretation Comments R-time Rapid (test code = R-time 0.8 min 0.4-0.7 Rapid) [place] [address]-02-27 06:27:00 Test Item Value Reference Range Interpretation Comments K-time Rapid (test code = K-time 0.8 min 0.6-2.3 Rapid) [place] [address]-02-27 06:27:00 Test Item Value Reference Range Interpretation Comments Angle Rapid (test code = Angle 79 degrees 64-80 Rapid) [place] [address]-02-27 06:27:00 Test Item Value Reference Range Interpretation Comments Max Amplitude Rapid (test code = Max 71 mm 52-71 Amplitude Rapid) [place] [address]-02-27 06:27:00 Test Item Value Reference Range Interpretation Comments G-value Rapid (test code = G-value 12.1 5.0-11.6 Rapid) [place] [address]-02-27 06:27:00 Test Item Value Reference Range Interpretation Comments Estimated % Lysis Rapid 0.0 See_Comment [Au tomated message] The (test code = Estimated syste m which generated % Lysis Rapid) this result t ransmitted reference range : <=7.5. The reference r christiano was not used to int erpret this result as normal/abnormal . [place] 963423-02-27 06:27:00 Test Item Value Reference Range Interpretation Comments RBC Morph (test code = Normal (11/27/22 12:27 RBC Morph) AM) [place] [address]-02-27 06:27:00 Test Item Value Reference Range Interpretation Comments Plt Morph (test code = Normal (11/27/22 12:27 Plt Morph) AM) [facility]248[facility] 06:27:00 Test Item Value Reference Range Interpretation Comments Basophils # (test code 0.1 See_Comment [Aut omated message] The = Basophils #) system which generated this result tra nsmitted reference range : <=0.2. The reference r christiano was not used to int erpret this result as normal/abnormal . [place] 457353-02-27 06:27:00 Test Item Value Reference Range Interpretation Comments Glucose Lvl (test code = Glucose Lvl) 85 70-99 [place] 457353-02-27 06:27:00 Test Item Value Reference Range Interpretation Comments BUN (test code = BUN) 28 7-22 [place] 457353-02-27 06:27:00 Test Item Value Reference Range Interpretation Comments Creatinine Lvl (test code = Creatinine 2.19 0.50-1.40 Lvl) [place] 457353-02-27 06:27:00 Test Item Value Reference Range Interpretation Comments Sodium Lvl (test code = Sodium Lvl) 143 135-145 [place] 457353-02-27 06:27:00 Test Item Value Reference Range Interpretation Comments Potassium Lvl (test code = Potassium 4.3 3.5-5.1 Lvl) [place] 457353-02-27 06:27:00 Test Item Value Reference Range Interpretation Comments Chloride Lvl (test code = Chloride Lvl) 110 95-109 [place] 457353-02-27 06:27:00 Test Item Value Reference Range Interpretation Comments CO2 (test code = CO2) 27 24-32 [place] 457353-02-27 06:27:00 Test Item Value Reference Range Interpretation Comments Calcium Lvl (test code = Calcium Lvl) 8.1 8.5-10.5 [place] 457353-02-27 06:27:00 Test Item Value Reference Range Interpretation Comments AGAP (test code = AGAP) 10.3 10.0-20.0 [place] 457353-02-27 06:27:00 Test Item Value Reference Range Interpretation Comments eGFR (test code = eGFR) 22 [place] 457353-02-27 06:27:00 Test Item Value Reference Range Interpretation Comments Total Protein (test code = Total 6.6 6.4-8.4 Protein) [place] 457353-02-27 06:27:00 Test Item Value Reference Range Interpretation Comments Albumin Lvl (test code = Albumin Lvl) 3.0 3.5-5.0 [place] 457353-02-27 06:27:00 Test Item Value Reference Range Interpretation Comments Globulin (test code = Globulin) 3.6 2.7-4.2 [place] 457353-02-27 06:27:00 Test Item Value Reference Range Interpretation Comments A/G Ratio (test code = A/G Ratio) 0.8 1 0.7-1.6 [place] [address]-02-27 06:27:00 Test Item Value Reference Range Interpretation Comments ALANINE AMINOTRANSFERASE 21 See_Comment [A utomated message] (test code = ALANINE The sys tem which AMINOTRANSFERASE) generated this result transmitted ref erence range: <=65. Th e reference range was not used to int erpret this result as normal/abnormal . [facility]SAM[facility] [id number] 06:27:00 Test Item Value Reference Range Interpretation Comments AST (test code = AST) 17 See_Comment [Auto mated message] The system which ge nerated this result transmit sheba reference range : <=37. The reference range was not used to interpr et this result as edy l/abnormal. [facility]SAM[facility] CSJJR5004-18-07 06:27:00 Test Item Value Reference Range Interpretation Comments Alk Phos (test code = Alk Phos) 84 39-136 [facility] [id number] 06:27:00 Test Item Value Reference Range Interpretation Comments Bili Total (test code = Bili Total) 0.3 0.2-1.3 [facility] [id number] 06:27:00 Test Item Value Reference Range Interpretation Comments Bili Direct (test code no gt See_Comment [Aut omated message] The = Bili Direct) system which generated this result tra nsmitted reference range : <=0.3. The reference r christiano was not used to int erpret this result as edy l/abnormal. [facility] CZAHC0310-86-17 06:27:00 Test Item Value Reference Range Interpretation Comments Bili Indirect Unable to See_Comment [Automated (test code = Bili Calculate message] T he system Indirect) which generated this result transmitted reference range : <=1.0. The reference range was not used to interpret this result as normal/abnormal . [facility] VPKUX4361-27-32 06:27:00 Test Item Value Reference Range Interpretation Comments Lactic Acid Lvl (test code = Lactic 0.5 0.5-2.2 Acid Lvl) [facility]LlhsnzqPENOACQGG9369-69-08 06:27:00 Test Item Value Reference Range Interpretation Comments Total Protein (test code = Total 6.6 6.4-8.4 Protein) [facility] TexasKsdzkniBXXLRFXMW6666-62-66 06:27:00 Test Item Value Reference Range Interpretation Comments Albumin Lvl (test code = Albumin Lvl) 3.0 3.5-5.0 [facility] TexasTkldrfhXPQUUNNLC0263-95-32 06:27:00 Test Item Value Reference Range Interpretation Comments Globulin (test code = Globulin) 3.6 2.7-4.2 [facility]valeZifhucuDPTWYIEHZ1326-31-40 06:27:00 Test Item Value Reference Range Interpretation Comments A/G Ratio (test code = A/G Ratio) 0.8 1 0.7-1.6 [facility]aleXvkfqltCXSMPOQHY5004-01-54 06:27:00 Test Item Value Reference Range Interpretation Comments ALANINE AMINOTRANSFERASE 21 See_Comment [A utomated message] (test code = ALANINE The sys tem which AMINOTRANSFERASE) generated this result transmitted ref erence range: <=65. Th e reference range was not used to int erpret this result as normal/abnormal . [facility] SunnyvaleLjzcasjAUTDICIGG3091-31-63 06:27:00 Test Item Value Reference Range Interpretation Comments AST (test code = AST) 17 See_Comment [Auto mated message] The system which ge nerated this result transmit sheba reference range : <=37. The reference range was not used to interpr et this result as edy l/abnormal. [facility]aleEdjtxgzSSBQCVMEV5066-05-02 06:27:00 Test Item Value Reference Range Interpretation Comments Alk Phos (test code = Alk Phos) 84 39-136 [facility]aleXzmpqgrTJOTUHPOB6102-29-93 06:27:00 Test Item Value Reference Range Interpretation Comments Bili Total (test code = Bili Total) 0.3 0.2-1.3 [facility] TexasIksrqlxTPJIKUIYU3723-71-27 06:27:00 Test Item Value Reference Range Interpretation Comments Bili Direct (test code no gt See_Comment [Aut omated message] The = Bili Direct) system which generated this result tra nsmitted reference range : <=0.3. The reference r christiano was not used to int erpret this result as edy l/abnormal. [facility] TexasOuycwqfMYUBNCNRV8504-23-60 06:27:00 Test Item Value Reference Range Interpretation Comments Bili Indirect Unable to See_Comment [Automated (test code = Bili Calculate message] T he system Indirect) which generated this result transmitted reference range : <=1.0. The reference range was not used to interpret this result as normal/abnormal . [facility] TexasXvamnztJWBDTYLFC9988-29-54 06:27:00 Test Item Value Reference Range Interpretation Comments pH Justin (test code = pH Justin) 7.29 1 7.28-7.42 [facility] TexasCvvklxeHBCWKBFHC7336-56-19 06:27:00 Test Item Value Reference Range Interpretation Comments pCO2 Justin (test code = pCO2 Justin) 65 38-52 [facility] TexasQaeyiwcOZRETJQLW5133-65-53 06:27:00 Test Item Value Reference Range Interpretation Comments pO2 Justin (test code = pO2 Justin) 37 20-49 [facility] TexasRulndcmASLIDSNKA6612-91-13 06:27:00 Test Item Value Reference Range Interpretation Comments HCO3 Justin (test code = HCO3 Justin) 31 22-26 [facility] TexasCctgsyyOLOLJIIFV6299-61-71 06:27:00 Test Item Value Reference Range Interpretation Comments BE Justin (test code = BE Justin) 3 -2-2 [facility] TexasRoscgwyXXGUSQALT3715-11-29 06:27:00 Test Item Value Reference Range Interpretation Comments O2 Sat Justin (calc) (test code = O2 Sat 63.0 40.0-70.0 Justin (calc)) [facility] TexasOqiqdxoPQWKKQOOG0888-93-36 06:27:00 Test Item Value Reference Range Interpretation Comments Temp Justin (test code = Temp Justin) 37.0 [facility] TexasQqadeikVCUQJLDUL8977-26-41 06:27:00 Test Item Value Reference Range Interpretation Comments Lactic Acid Lvl (test code = Lactic 0.5 0.5-2.2 Acid Lvl) [facility] TexasHofazemUPGDQORUO9554-85-59 06:27:00 Test Item Value Reference Range Interpretation Comments TSH (test code = TSH) 0.403 0.360-3.740 [place] 963423-02-27 06:27:00 Test Item Value Reference Range Interpretation Comments WBC X 10x3 (test code = WBC X 10x3) 5.9 3.7-10.4 [place] 963423-02-27 06:27:00 Test Item Value Reference Range Interpretation Comments RBC X 10x6 (test code = RBC X 10x6) 3.67 4.20-5.40 [place] 963423-02-27 06:27:00 Test Item Value Reference Range Interpretation Comments Hgb (test code = Hgb) 10.7 12.0-16.0 [place] 963423-02-27 06:27:00 Test Item Value Reference Range Interpretation Comments Hct (test code = Hct) 33.5 36.0-48.0 [place] 963423-02-27 06:27:00 Test Item Value Reference Range Interpretation Comments MCV (test code = MCV) 91.4 80.0-98.0 [facility] HospitalVcrlrovKIISBRGLPX5099-48-45 06:27:00 Test Item Value Reference Range Interpretation Comments MCH (test code = MCH) 29.3 pg 27.0-31.0 [facility] HospitalHmwspaqFESIEGWKKT2192-83-67 06:27:00 Test Item Value Reference Range Interpretation Comments MCHC (test code = MCHC) 32.0 32.0-36.0 [facility] HospitalCjqgbpyJZAKAYCHKA7584-49-80 06:27:00 Test Item Value Reference Range Interpretation Comments RDW (test code = RDW) 13.7 11.5-14.5 [facility] HospitalKcgkztzBJLAIEPGSR1313-53-09 06:27:00 Test Item Value Reference Range Interpretation Comments Platelet (test code = Platelet) 139 133-450 [facility] HospitalCtsnjznFOKPEHNHGO5721-92-56 06:27:00 Test Item Value Reference Range Interpretation Comments MPV (test code = MPV) 7.5 7.4-10.4 [place] 963423-02-27 06:27:00 Test Item Value Reference Range Interpretation Comments ACT (TEG) Rapid (test code = ACT (TEG) 121 s 86-118 Rapid) [facility] HospitalTcrmjdmKDENZSWWUY8066-12-69 06:27:00 Test Item Value Reference Range Interpretation Comments Split Point Rapid (test code = Split 0.6 min Point Rapid) [place] 963423-02-27 06:27:00 Test Item Value Reference Range Interpretation Comments R-time Rapid (test code = R-time 0.8 min 0.4-0.7 Rapid) [place] [address]-02-27 06:27:00 Test Item Value Reference Range Interpretation Comments K-time Rapid (test code = K-time 0.8 min 0.6-2.3 Rapid) [place] [address]-02-27 06:27:00 Test Item Value Reference Range Interpretation Comments Angle Rapid (test code = Angle 79 degrees 64-80 Rapid) [place] [address]-02-27 06:27:00 Test Item Value Reference Range Interpretation Comments Max Amplitude Rapid (test code = Max 71 mm 52-71 Amplitude Rapid) [place] [address]-02-27 06:27:00 Test Item Value Reference Range Interpretation Comments G-value Rapid (test code = G-value 12.1 5.0-11.6 Rapid) [place] 963423-02-27 06:27:00 Test Item Value Reference Range Interpretation Comments Estimated % Lysis Rapid 0.0 See_Comment [Au tomated message] The (test code = Estimated syste m which generated % Lysis Rapid) this result t ransmitted reference range : <=7.5. The reference r christiano was not used to int erpret this result as normal/abnormal . [facility] HospitalAxcarhiQDSERPXPMO2712-73-56 06:27:00 Test Item Value Reference Range Interpretation Comments RBC Morph (test code = Normal (11/27/22 12:27 RBC Morph) AM) [place] [address]-02-27 06:27:00 Test Item Value Reference Range Interpretation Comments Plt Morph (test code = Normal (11/27/22 12:27 Plt Morph) AM) [place] 963423-02-27 06:27:00 Test Item Value Reference Range Interpretation Comments Segs (test code = Segs) 60.1 45.0-75.0 [place] [address]-02-27 06:27:00 Test Item Value Reference Range Interpretation Comments Lymphocytes (test code = Lymphocytes) 23.9 20.0-40.0 [place] [address]-02-27 06:27:00 Test Item Value Reference Range Interpretation Comments Monocytes (test code = Monocytes) 9.6 2.0-12.0 [place] 963423-02-27 06:27:00 Test Item Value Reference Range Interpretation Comments Eosinophils (test code = 5.2 See_Comment [A utomated message] The Eosinophils) system which ge nerated this result tra nsmitted reference range : <=4.0. The reference r christiano was not used to int erpret this result as normal/abnormal . [place] 963423-02-27 06:27:00 Test Item Value Reference Range Interpretation Comments Basophils (test code = 1.2 See_Comment [Aut omated message] The Basophils) system which ge nerated this result tra nsmitted reference range : <=1.0. The reference r christiano was not used to int erpret this result as normal/abnormal . [place] 963423-02-27 06:27:00 Test Item Value Reference Range Interpretation Comments Neutrophils # (test code = Neutrophils 3.5 1.5-8.1 #) [place] 963423-02-27 06:27:00 Test Item Value Reference Range Interpretation Comments Lymphocytes # (test code = Lymphocytes 1.4 1.0-5.5 #) [place] 963423-02-27 06:27:00 Test Item Value Reference Range Interpretation Comments Monocytes # (test code 0.6 See_Comment [Aut omated message] The = Monocytes #) system which generated this result tra nsmitted reference range : <=0.8. The reference r christiano was not used to int erpret this result as normal/abnormal . [place] 963423-02-27 06:27:00 Test Item Value Reference Range Interpretation Comments Eosinophils # (test code 0.3 See_Comment [A utomated message] The = Eosinophils #) system whic h generated this result tra nsmitted reference range : <=0.5. The reference r christiano was not used to int erpret this result as normal/abnormal . [place] 963423-02-27 06:27:00 Test Item Value Reference Range Interpretation Comments Basophils # (test code 0.1 See_Comment [Aut omated message] The = Basophils #) system which generated this result tra nsmitted reference range : <=0.2. The reference r christiano was not used to int erpret this result as normal/abnormal . [facility] HospitalTqoixekDWVRCXGIRC8175-92-38 06:27:00 Test Item Value Reference Range Interpretation Comments ACT (TEG) Rapid (test code = ACT (TEG) 121 s 86-118 Rapid) [place] 963423-02-27 06:27:00 Test Item Value Reference Range Interpretation Comments Split Point Rapid (test code = Split 0.6 min Point Rapid) [facility] HospitalHgdajtaLZUSPEEUCY9737-19-99 06:27:00 Test Item Value Reference Range Interpretation Comments R-time Rapid (test code = R-time 0.8 min 0.4-0.7 Rapid) [place] 963423-02-27 06:27:00 Test Item Value Reference Range Interpretation Comments K-time Rapid (test code = K-time 0.8 min 0.6-2.3 Rapid) [facility] HospitalCwqaqznUKIPAGMLNQ7005-17-48 06:27:00 Test Item Value Reference Range Interpretation Comments Angle Rapid (test code = Angle 79 degrees 64-80 Rapid) [facility] HospitalJcrhdsfJZGENUSDHT7224-84-10 06:27:00 Test Item Value Reference Range Interpretation Comments Max Amplitude Rapid (test code = Max 71 mm 52-71 Amplitude Rapid) [facility] HospitalVpdphcoWADVCUNYJI4130-27-83 06:27:00 Test Item Value Reference Range Interpretation Comments G-value Rapid (test code = G-value 12.1 5.0-11.6 Rapid) [facility] HospitalGuvoehwVLDLUBUAKU2000-20-87 06:27:00 Test Item Value Reference Range Interpretation Comments Estimated % Lysis Rapid 0.0 See_Comment [Au tomated message] The (test code = Estimated syste m which generated % Lysis Rapid) this result t ransmitted reference range : <=7.5. The reference r christiano was not used to int erpret this result as normal/abnormal . [facility] HospitalIkrhslhVPACACJALC8685-94-73 06:27:00 Test Item Value Reference Range Interpretation Comments RBC Morph (test code = Normal (11/27/22 12:27 RBC Morph) AM) [facility] HospitalRkkgiomAVUOZCNQUN4977-46-16 06:27:00 Test Item Value Reference Range Interpretation Comments Plt Morph (test code = Normal (11/27/22 12:27 Plt Morph) AM) [facility] HospitalJpwagbqWYXWVGMZFK5113-21-78 06:27:00 Test Item Value Reference Range Interpretation Comments Basophils # (test code 0.1 See_Comment [Aut omated message] The = Basophils #) system which generated this result tra nsmitted reference range : <=0.2. The reference r christiano was not used to int erpret this result as normal/abnormal . [facility]2023-02-27 06:27:00 Test Item Value Reference Range Interpretation Comments Glucose Lvl (test code = Glucose Lvl) 85 70-99 [place] 457353-02-27 06:27:00 Test Item Value Reference Range Interpretation Comments BUN (test code = BUN) 28 7-22 [place] 457353-02-27 06:27:00 Test Item Value Reference Range Interpretation Comments Creatinine Lvl (test code = Creatinine 2.19 0.50-1.40 Lvl) [facility]2023-02-27 06:27:00 Test Item Value Reference Range Interpretation Comments Sodium Lvl (test code = Sodium Lvl) 143 135-145 [place] 457353-02-27 06:27:00 Test Item Value Reference Range Interpretation Comments Potassium Lvl (test code = Potassium 4.3 3.5-5.1 Lvl) [facility]2023-02-27 06:27:00 Test Item Value Reference Range Interpretation Comments Chloride Lvl (test code = Chloride Lvl) 110 95-109 [place] 457353-02-27 06:27:00 Test Item Value Reference Range Interpretation Comments CO2 (test code = CO2) 27 24-32 [place] 457353-02-27 06:27:00 Test Item Value Reference Range Interpretation Comments Calcium Lvl (test code = Calcium Lvl) 8.1 8.5-10.5 [place] 457353-02-27 06:27:00 Test Item Value Reference Range Interpretation Comments AGAP (test code = AGAP) 10.3 10.0-20.0 [place] 457353-02-27 06:27:00 Test Item Value Reference Range Interpretation Comments eGFR (test code = eGFR) 22 [place] 457353-02-27 06:27:00 Test Item Value Reference Range Interpretation Comments Total Protein (test code = Total 6.6 6.4-8.4 Protein) [place] 457353-02-27 06:27:00 Test Item Value Reference Range Interpretation Comments Albumin Lvl (test code = Albumin Lvl) 3.0 3.5-5.0 [place] 457353-02-27 06:27:00 Test Item Value Reference Range Interpretation Comments Globulin (test code = Globulin) 3.6 2.7-4.2 [place] 457353-02-27 06:27:00 Test Item Value Reference Range Interpretation Comments A/G Ratio (test code = A/G Ratio) 0.8 1 0.7-1.6 [place] [address]-02-27 06:27:00 Test Item Value Reference Range Interpretation Comments ALANINE AMINOTRANSFERASE 21 See_Comment [A utomated message] (test code = ALANINE The sys tem which AMINOTRANSFERASE) generated this result transmitted ref erence range: <=65. Th e reference range was not used to int erpret this result as normal/abnormal . [place] 457353-02-27 06:27:00 Test Item Value Reference Range Interpretation Comments AST (test code = AST) 17 See_Comment [Auto mated message] The system which ge nerated this result transmit sheba reference range : <=37. The reference range was not used to interpr et this result as edy l/abnormal. [place] 457353-02-27 06:27:00 Test Item Value Reference Range Interpretation Comments Alk Phos (test code = Alk Phos) 84 39-136 [place] [address]-02-27 06:27:00 Test Item Value Reference Range Interpretation Comments Bili Total (test code = Bili Total) 0.3 0.2-1.3 [place] [address]-02-27 06:27:00 Test Item Value Reference Range Interpretation Comments Bili Direct (test code no gt See_Comment [Aut omated message] The = Bili Direct) system which generated this result tra nsmitted reference range : <=0.3. The reference r christiano was not used to int erpret this result as edy l/abnormal. [facility]SAM[facility] WHNFA9802-97-40 06:27:00 Test Item Value Reference Range Interpretation Comments Bili Indirect Unable to See_Comment [Automated (test code = Bili Calculate message] T he system Indirect) which generated this result transmitted reference range : <=1.0. The reference range was not used to interpret this result as normal/abnormal . [facility]2023-02-27 06:27:00 Test Item Value Reference Range Interpretation Comments Lactic Acid Lvl (test code = Lactic 0.5 0.5-2.2 Acid Lvl) [facility] TexasPspvzdfQLHBQVHLD2590-29-83 06:27:00 Test Item Value Reference Range Interpretation Comments Total Protein (test code = Total 6.6 6.4-8.4 Protein) [facility] TexasFvtcngoWAGEAMDII9793-64-88 06:27:00 Test Item Value Reference Range Interpretation Comments Albumin Lvl (test code = Albumin Lvl) 3.0 3.5-5.0 [facility] TexasAvfsekxKPSBFERTL0097-89-58 06:27:00 Test Item Value Reference Range Interpretation Comments Globulin (test code = Globulin) 3.6 2.7-4.2 [place] 922233-02-27 06:27:00 Test Item Value Reference Range Interpretation Comments A/G Ratio (test code = A/G Ratio) 0.8 1 0.7-1.6 [facility] TexasImujzfqOCRHNYEAM9374-79-42 06:27:00 Test Item Value Reference Range Interpretation Comments ALANINE AMINOTRANSFERASE 21 See_Comment [A utomated message] (test code = ALANINE The sys tem which AMINOTRANSFERASE) generated this result transmitted ref erence range: <=65. Th e reference range was not used to int erpret this result as normal/abnormal . [facility] CenterTgufdxgPVAJERUZJ7888-82-97 06:27:00 Test Item Value Reference Range Interpretation Comments AST (test code = AST) 17 See_Comment [Auto mated message] The system which ge nerated this result transmit sheba reference range : <=37. The reference range was not used to interpr et this result as edy l/abnormal. [facility] TexasHbwmrnoMBCSIHKOK2696-53-49 06:27:00 Test Item Value Reference Range Interpretation Comments Alk Phos (test code = Alk Phos) 84 39-136 [facility] TexasDngjdicFUSIDRZOZ0083-01-00 06:27:00 Test Item Value Reference Range Interpretation Comments Bili Total (test code = Bili Total) 0.3 0.2-1.3 [place] 922233-02-27 06:27:00 Test Item Value Reference Range Interpretation Comments Bili Direct (test code no gt See_Comment [Aut omated message] The = Bili Direct) system which generated this result tra nsmitted reference range : <=0.3. The reference r christiano was not used to int erpret this result as edy l/abnormal. [facility] TexasWpiawszGOXCKBTLD5420-47-36 06:27:00 Test Item Value Reference Range Interpretation Comments Bili Indirect Unable to See_Comment [Automated (test code = Bili Calculate message] T he system Indirect) which generated this result transmitted reference range : <=1.0. The reference range was not used to interpret this result as normal/abnormal . [facility] TexasSekpoajBKIDIGTOK9436-61-31 06:27:00 Test Item Value Reference Range Interpretation Comments pH Justin (test code = pH Justin) 7.29 1 7.28-7.42 [facility] TexasEitzqbtFIBHMAUFU8895-92-79 06:27:00 Test Item Value Reference Range Interpretation Comments pCO2 Justin (test code = pCO2 Justin) 65 38-52 [facility] TexasJgadxzqVEWBWKMYE1413-76-21 06:27:00 Test Item Value Reference Range Interpretation Comments pO2 Justin (test code = pO2 Justin) 37 20-49 [facility] TexasOiiadejSCMOIAQKZ1052-86-15 06:27:00 Test Item Value Reference Range Interpretation Comments HCO3 Justin (test code = HCO3 Justin) 31 22-26 [facility] TexasAiipdrfYLWIOCGDE4384-05-42 06:27:00 Test Item Value Reference Range Interpretation Comments BE Justin (test code = BE Justin) 3 -2-2 [facility] TexasGzxnwyqLKQJGZXAA5108-17-36 06:27:00 Test Item Value Reference Range Interpretation Comments O2 Sat Justin (calc) (test code = O2 Sat 63.0 40.0-70.0 Justin (calc)) [facility] TexasJxtodjfPHDDXDHFC9970-00-43 06:27:00 Test Item Value Reference Range Interpretation Comments Temp Justin (test code = Temp Justin) 37.0 [facility] TexasWprerwkWSLTOEZPO8500-77-58 06:27:00 Test Item Value Reference Range Interpretation Comments Lactic Acid Lvl (test code = Lactic 0.5 0.5-2.2 Acid Lvl) [facility] TexasXsbsoeiVWMXPWODP8185-03-85 06:27:00 Test Item Value Reference Range Interpretation Comments TSH (test code = TSH) 0.403 0.360-3.740 [place] 963423-02-27 06:27:00 Test Item Value Reference Range Interpretation Comments WBC X 10x3 (test code = WBC X 10x3) 5.9 3.7-10.4 [place] 963423-02-27 06:27:00 Test Item Value Reference Range Interpretation Comments RBC X 10x6 (test code = RBC X 10x6) 3.67 4.20-5.40 [place] 963423-02-27 06:27:00 Test Item Value Reference Range Interpretation Comments Hgb (test code = Hgb) 10.7 12.0-16.0 [place] 963423-02-27 06:27:00 Test Item Value Reference Range Interpretation Comments Hct (test code = Hct) 33.5 36.0-48.0 [place] 963423-02-27 06:27:00 Test Item Value Reference Range Interpretation Comments MCV (test code = MCV) 91.4 80.0-98.0 [place] 963423-02-27 06:27:00 Test Item Value Reference Range Interpretation Comments MCH (test code = MCH) 29.3 pg 27.0-31.0 [facility]MRCFV8498[facility]-68 06:27:00 Test Item Value Reference Range Interpretation Comments MCHC (test code = MCHC) 32.0 32.0-36.0 [place] 963423-02-27 06:27:00 Test Item Value Reference Range Interpretation Comments RDW (test code = RDW) 13.7 11.5-14.5 [place] 963423-02-27 06:27:00 Test Item Value Reference Range Interpretation Comments Platelet (test code = Platelet) 139 133-450 [place] 963423-02-27 06:27:00 Test Item Value Reference Range Interpretation Comments MPV (test code = MPV) 7.5 7.4-10.4 [place] 963423-02-27 06:27:00 Test Item Value Reference Range Interpretation Comments ACT (TEG) Rapid (test code = ACT (TEG) 121 s 86-118 Rapid) [place] 963423-02-27 06:27:00 Test Item Value Reference Range Interpretation Comments Split Point Rapid (test code = Split 0.6 min Point Rapid) [place] 963423-02-27 06:27:00 Test Item Value Reference Range Interpretation Comments R-time Rapid (test code = R-time 0.8 min 0.4-0.7 Rapid) [place] 963423-02-27 06:27:00 Test Item Value Reference Range Interpretation Comments K-time Rapid (test code = K-time 0.8 min 0.6-2.3 Rapid) [place] [address]-02-27 06:27:00 Test Item Value Reference Range Interpretation Comments Angle Rapid (test code = Angle 79 degrees 64-80 Rapid) [place] [address]-02-27 06:27:00 Test Item Value Reference Range Interpretation Comments Max Amplitude Rapid (test code = Max 71 mm 52-71 Amplitude Rapid) [place] [address]-02-27 06:27:00 Test Item Value Reference Range Interpretation Comments G-value Rapid (test code = G-value 12.1 5.0-11.6 Rapid) [place] [address]-02-27 06:27:00 Test Item Value Reference Range Interpretation Comments Estimated % Lysis Rapid 0.0 See_Comment [Au tomated message] The (test code = Estimated syste m which generated % Lysis Rapid) this result t ransmitted reference range : <=7.5. The reference r christiano was not used to int erpret this result as normal/abnormal . [place] 963423-02-27 06:27:00 Test Item Value Reference Range Interpretation Comments RBC Morph (test code = Normal (11/27/22 12:27 RBC Morph) AM) [place] 963423-02-27 06:27:00 Test Item Value Reference Range Interpretation Comments Plt Morph (test code = Normal (11/27/22 12:27 Plt Morph) AM) [place] [address]-02-27 06:27:00 Test Item Value Reference Range Interpretation Comments Segs (test code = Segs) 60.1 45.0-75.0 [place] [address]-02-27 06:27:00 Test Item Value Reference Range Interpretation Comments Lymphocytes (test code = Lymphocytes) 23.9 20.0-40.0 [place] 963423-02-27 06:27:00 Test Item Value Reference Range Interpretation Comments Monocytes (test code = Monocytes) 9.6 2.0-12.0 [place] 963423-02-27 06:27:00 Test Item Value Reference Range Interpretation Comments Eosinophils (test code = 5.2 See_Comment [A utomated message] The Eosinophils) system which ge nerated this result tra nsmitted reference range : <=4.0. The reference r christiano was not used to int erpret this result as normal/abnormal . [place] 963423-02-27 06:27:00 Test Item Value Reference Range Interpretation Comments Basophils (test code = 1.2 See_Comment [Aut omated message] The Basophils) system which ge nerated this result tra nsmitted reference range : <=1.0. The reference r christiano was not used to int erpret this result as normal/abnormal . [place] 963423-02-27 06:27:00 Test Item Value Reference Range Interpretation Comments Neutrophils # (test code = Neutrophils 3.5 1.5-8.1 #) [place] 963423-02-27 06:27:00 Test Item Value Reference Range Interpretation Comments Lymphocytes # (test code = Lymphocytes 1.4 1.0-5.5 #) [place] 963423-02-27 06:27:00 Test Item Value Reference Range Interpretation Comments Monocytes # (test code 0.6 See_Comment [Aut omated message] The = Monocytes #) system which generated this result tra nsmitted reference range : <=0.8. The reference r christiano was not used to int erpret this result as normal/abnormal . [place] 963423-02-27 06:27:00 Test Item Value Reference Range Interpretation Comments Eosinophils # (test code 0.3 See_Comment [A utomated message] The = Eosinophils #) system whic h generated this result tra nsmitted reference range : <=0.5. The reference r christiano was not used to int erpret this result as normal/abnormal . [place] 963423-02-27 06:27:00 Test Item Value Reference Range Interpretation Comments Basophils # (test code 0.1 See_Comment [Aut omated message] The = Basophils #) system which generated this result tra nsmitted reference range : <=0.2. The reference r christiano was not used to int erpret this result as normal/abnormal . [facility] HospitalGupbroeWEZIMYGFOV9223-88-35 06:27:00 Test Item Value Reference Range Interpretation Comments ACT (TEG) Rapid (test code = ACT (TEG) 121 s 86-118 Rapid) [facility] HospitalWjrxmygHHWODWYREY0428-40-95 06:27:00 Test Item Value Reference Range Interpretation Comments Split Point Rapid (test code = Split 0.6 min Point Rapid) [facility] HospitalPumnqukSLRGTAEWMB6342-87-27 06:27:00 Test Item Value Reference Range Interpretation Comments R-time Rapid (test code = R-time 0.8 min 0.4-0.7 Rapid) [place] [address]-02-27 06:27:00 Test Item Value Reference Range Interpretation Comments K-time Rapid (test code = K-time 0.8 min 0.6-2.3 Rapid) [place] [address]-02-27 06:27:00 Test Item Value Reference Range Interpretation Comments Angle Rapid (test code = Angle 79 degrees 64-80 Rapid) [facility] HospitalUtloncxXAPQTRFEYR3645-83-52 06:27:00 Test Item Value Reference Range Interpretation Comments Max Amplitude Rapid (test code = Max 71 mm 52-71 Amplitude Rapid) [place] 963423-02-27 06:27:00 Test Item Value Reference Range Interpretation Comments G-value Rapid (test code = G-value 12.1 5.0-11.6 Rapid) [facility] HospitalHnuutjwZAIFWRHPVY9497-90-85 06:27:00 Test Item Value Reference Range Interpretation Comments Estimated % Lysis Rapid 0.0 See_Comment [Au tomated message] The (test code = Estimated syste m which generated % Lysis Rapid) this result t ransmitted reference range : <=7.5. The reference r christiano was not used to int erpret this result as normal/abnormal . [facility] HospitalLjhqvkmUDTIMRXKBG7981-40-03 06:27:00 Test Item Value Reference Range Interpretation Comments RBC Morph (test code = Normal (11/27/22 12:27 RBC Morph) AM) [place] 963423-02-27 06:27:00 Test Item Value Reference Range Interpretation Comments Plt Morph (test code = Normal (11/27/22 12:27 Plt Morph) AM) [place] 963423-02-27 06:27:00 Test Item Value Reference Range Interpretation Comments Basophils # (test code 0.1 See_Comment [Aut omated message] The = Basophils #) system which generated this result tra nsmitted reference range : <=0.2. The reference r christiano was not used to int erpret this result as normal/abnormal . [facility] [id number] 06:27:00 Test Item Value Reference Range Interpretation Comments Glucose Lvl (test code = Glucose Lvl) 85 70-99 [facility] [id number] 06:27:00 Test Item Value Reference Range Interpretation Comments BUN (test code = BUN) 28 7-22 [facility] [id number] 06:27:00 Test Item Value Reference Range Interpretation Comments Creatinine Lvl (test code = Creatinine 2.19 0.50-1.40 Lvl) [facility] [id number] 06:27:00 Test Item Value Reference Range Interpretation Comments Sodium Lvl (test code = Sodium Lvl) 143 135-145 [facility] [id number] 06:27:00 Test Item Value Reference Range Interpretation Comments Potassium Lvl (test code = Potassium 4.3 3.5-5.1 Lvl) [facility] THLHV7727-19-08 06:27:00 Test Item Value Reference Range Interpretation Comments Chloride Lvl (test code = Chloride Lvl) 110 95-109 [facility] [id number] 06:27:00 Test Item Value Reference Range Interpretation Comments CO2 (test code = CO2) 27 24-32 [facility] [id number] 06:27:00 Test Item Value Reference Range Interpretation Comments Calcium Lvl (test code = Calcium Lvl) 8.1 8.5-10.5 [facility] [id number] 06:27:00 Test Item Value Reference Range Interpretation Comments AGAP (test code = AGAP) 10.3 10.0-20.0 [facility] [id number] 06:27:00 Test Item Value Reference Range Interpretation Comments eGFR (test code = eGFR) 22 [facility] CenterSAM[facility] TUQZW1153-03-72 06:27:00 Test Item Value Reference Range Interpretation Comments Total Protein (test code = Total 6.6 6.4-8.4 Protein) [place] 457353-02-27 06:27:00 Test Item Value Reference Range Interpretation Comments Albumin Lvl (test code = Albumin Lvl) 3.0 3.5-5.0 [place] [address]-02-27 06:27:00 Test Item Value Reference Range Interpretation Comments Globulin (test code = Globulin) 3.6 2.7-4.2 [place] [address]-02-27 06:27:00 Test Item Value Reference Range Interpretation Comments A/G Ratio (test code = A/G Ratio) 0.8 1 0.7-1.6 [place] [address]-02-27 06:27:00 Test Item Value Reference Range Interpretation Comments ALANINE AMINOTRANSFERASE 21 See_Comment [A utomated message] (test code = ALANINE The sys tem which AMINOTRANSFERASE) generated this result transmitted ref erence range: <=65. Th e reference range was not used to int erpret this result as normal/abnormal . [place] [address]-02-27 06:27:00 Test Item Value Reference Range Interpretation Comments AST (test code = AST) 17 See_Comment [Auto mated message] The system which ge nerated this result transmit sheba reference range : <=37. The reference range was not used to interpr et this result as edy l/abnormal. [facility] CenterSAM[facility] [id number] 06:27:00 Test Item Value Reference Range Interpretation Comments Alk Phos (test code = Alk Phos) 84 39-136 [place] [address]-02-27 06:27:00 Test Item Value Reference Range Interpretation Comments Bili Total (test code = Bili Total) 0.3 0.2-1.3 [place] [address]-02-27 06:27:00 Test Item Value Reference Range Interpretation Comments Bili Direct (test code no gt See_Comment [Aut omated message] The = Bili Direct) system which generated this result tra nsmitted reference range : <=0.3. The reference r christiano was not used to int erpret this result as edy l/abnormal. [facility] CenterSAM[facility] [id number] 06:27:00 Test Item Value Reference Range Interpretation Comments Bili Indirect Unable to See_Comment [Automated (test code = Bili Calculate message] T he system Indirect) which generated this result transmitted reference range : <=1.0. The reference range was not used to interpret this result as normal/abnormal . [facility]2023-02-27 06:27:00 Test Item Value Reference Range Interpretation Comments Lactic Acid Lvl (test code = Lactic 0.5 0.5-2.2 Acid Lvl) [facility] TexasCwsikdaJAEYQQITH4059-89-78 06:27:00 Test Item Value Reference Range Interpretation Comments Total Protein (test code = Total 6.6 6.4-8.4 Protein) [facility] TexasGnoxjldTAPRFZMIG7997-44-27 06:27:00 Test Item Value Reference Range Interpretation Comments Albumin Lvl (test code = Albumin Lvl) 3.0 3.5-5.0 [facility] TexasUhcvyrgDZRKVKAZH2288-23-17 06:27:00 Test Item Value Reference Range Interpretation Comments Globulin (test code = Globulin) 3.6 2.7-4.2 [facility] TexasCwibqmmVROOVCXFB2722-92-73 06:27:00 Test Item Value Reference Range Interpretation Comments A/G Ratio (test code = A/G Ratio) 0.8 1 0.7-1.6 [facility] TexasXvzxlflQBAJZPYJC5791-03-73 06:27:00 Test Item Value Reference Range Interpretation Comments ALANINE AMINOTRANSFERASE 21 See_Comment [A utomated message] (test code = ALANINE The sys tem which AMINOTRANSFERASE) generated this result transmitted ref erence range: <=65. Th e reference range was not used to int erpret this result as normal/abnormal . [facility] TexasCnbvnbmSYEREQGIZ1575-92-52:27:00 Test Item Value Reference Range Interpretation Comments AST (test code = AST) 17 See_Comment [Auto mated message] The system which ge nerated this result transmit sheba reference range : <=37. The reference range was not used to interpr et this result as edy l/abnormal. [facility] TexasBmzkfetXUHNQOUWR5928-10-60 06:27:00 Test Item Value Reference Range Interpretation Comments Alk Phos (test code = Alk Phos) 84 39-136 [facility] TexasWnbywmxCRZYBQCFY7656-71-60 06:27:00 Test Item Value Reference Range Interpretation Comments Bili Total (test code = Bili Total) 0.3 0.2-1.3 [facility] TexasGhofromXKVWOCVXJ0419-11-98 06:27:00 Test Item Value Reference Range Interpretation Comments Bili Direct (test code no gt See_Comment [Aut omated message] The = Bili Direct) system which generated this result tra nsmitted reference range : <=0.3. The reference r christiano was not used to int erpret this result as edy l/abnormal. [facility] TexasHcvdcfhXFVXTFXZN8662-89-45 06:27:00 Test Item Value Reference Range Interpretation Comments Bili Indirect Unable to See_Comment [Automated (test code = Bili Calculate message] T he system Indirect) which generated this result transmitted reference range : <=1.0. The reference range was not used to interpret this result as normal/abnormal . [facility] CenterKajfmdbJBFCLVVQN6246-38-76 06:27:00 Test Item Value Reference Range Interpretation Comments pH Justin (test code = pH Justin) 7.29 1 7.28-7.42 [facility] TexasBfusfbsIPYQOLHKZ7510-99-48 06:27:00 Test Item Value Reference Range Interpretation Comments pCO2 Justin (test code = pCO2 Justin) 65 38-52 [facility] TexasDoelwpyIDXKUTKDB0232-61-15 06:27:00 Test Item Value Reference Range Interpretation Comments pO2 Justin (test code = pO2 Justin) 37 20-49 [facility] TexasCinmslkCDQCTVRZT6275-39-92 06:27:00 Test Item Value Reference Range Interpretation Comments HCO3 Justin (test code = HCO3 Justin) 31 22-26 [facility] CenterQylsjxzYSJMLQWZC7600-85-75 06:27:00 Test Item Value Reference Range Interpretation Comments BE Justin (test code = BE Justin) 3 -2-2 [facility] TexasOvkaoixQEIZESEJS6492-43-61 06:27:00 Test Item Value Reference Range Interpretation Comments O2 Sat Justin (calc) (test code = O2 Sat 63.0 40.0-70.0 Justin (calc)) [facility] TexasBwedrroATKHADXRB6841-32-57 06:27:00 Test Item Value Reference Range Interpretation Comments Temp Justin (test code = Temp Justin) 37.0 [facility] TexasYxylfunPZGNWSTSF4911-90-66 06:27:00 Test Item Value Reference Range Interpretation Comments Lactic Acid Lvl (test code = Lactic 0.5 0.5-2.2 Acid Lvl) [facility] TexasLljwwjjYDIDYTJEG4301-78-01 06:27:00 Test Item Value Reference Range Interpretation Comments TSH (test code = TSH) 0.403 0.360-3.740 [place] 963423-02-27 06:27:00 Test Item Value Reference Range Interpretation Comments WBC X 10x3 (test code = WBC X 10x3) 5.9 3.7-10.4 [place] 963423-02-27 06:27:00 Test Item Value Reference Range Interpretation Comments RBC X 10x6 (test code = RBC X 10x6) 3.67 4.20-5.40 [place] 963423-02-27 06:27:00 Test Item Value Reference Range Interpretation Comments Hgb (test code = Hgb) 10.7 12.0-16.0 [place] [address]-02-27 06:27:00 Test Item Value Reference Range Interpretation Comments Hct (test code = Hct) 33.5 36.0-48.0 [place] 963423-02-27 06:27:00 Test Item Value Reference Range Interpretation Comments MCV (test code = MCV) 91.4 80.0-98.0 [place] 963423-02-27 06:27:00 Test Item Value Reference Range Interpretation Comments MCH (test code = MCH) 29.3 pg 27.0-31.0 [place] 963423-02-27 06:27:00 Test Item Value Reference Range Interpretation Comments MCHC (test code = MCHC) 32.0 32.0-36.0 [place] 963423-02-27 06:27:00 Test Item Value Reference Range Interpretation Comments RDW (test code = RDW) 13.7 11.5-14.5 [place] 963423-02-27 06:27:00 Test Item Value Reference Range Interpretation Comments Platelet (test code = Platelet) 139 133-450 [place] 963423-02-27 06:27:00 Test Item Value Reference Range Interpretation Comments MPV (test code = MPV) 7.5 7.4-10.4 [place] 963423-02-27 06:27:00 Test Item Value Reference Range Interpretation Comments ACT (TEG) Rapid (test code = ACT (TEG) 121 s 86-118 Rapid) [place] 963423-02-27 06:27:00 Test Item Value Reference Range Interpretation Comments Split Point Rapid (test code = Split 0.6 min Point Rapid) [place] [address]-02-27 06:27:00 Test Item Value Reference Range Interpretation Comments R-time Rapid (test code = R-time 0.8 min 0.4-0.7 Rapid) [place] [address]-02-27 06:27:00 Test Item Value Reference Range Interpretation Comments K-time Rapid (test code = K-time 0.8 min 0.6-2.3 Rapid) [place] [address]-02-27 06:27:00 Test Item Value Reference Range Interpretation Comments Angle Rapid (test code = Angle 79 degrees 64-80 Rapid) [place] [address]-02-27 06:27:00 Test Item Value Reference Range Interpretation Comments Max Amplitude Rapid (test code = Max 71 mm 52-71 Amplitude Rapid) [place] [address]-02-27 06:27:00 Test Item Value Reference Range Interpretation Comments G-value Rapid (test code = G-value 12.1 5.0-11.6 Rapid) [place] [address]:27:00 Test Item Value Reference Range Interpretation Comments Estimated % Lysis Rapid 0.0 See_Comment [Au tomated message] The (test code = Estimated syste m which generated % Lysis Rapid) this result t ransmitted reference range : <=7.5. The reference r christiano was not used to int erpret this result as normal/abnormal . [place] 963423-02-27 06:27:00 Test Item Value Reference Range Interpretation Comments RBC Morph (test code = Normal (11/27/22 12:27 RBC Morph) AM) [place] [address]-02-27 06:27:00 Test Item Value Reference Range Interpretation Comments Plt Morph (test code = Normal (11/27/22 12:27 Plt Morph) AM) [place] [address]-02-27 06:27:00 Test Item Value Reference Range Interpretation Comments Segs (test code = Segs) 60.1 45.0-75.0 [place] [address]-02-27 06:27:00 Test Item Value Reference Range Interpretation Comments Lymphocytes (test code = Lymphocytes) 23.9 20.0-40.0 [place] [address]-02-27 06:27:00 Test Item Value Reference Range Interpretation Comments Monocytes (test code = Monocytes) 9.6 2.0-12.0 [place] 963423-02-27 06:27:00 Test Item Value Reference Range Interpretation Comments Eosinophils (test code = 5.2 See_Comment [A utomated message] The Eosinophils) system which ge nerated this result tra nsmitted reference range : <=4.0. The reference r christiano was not used to int erpret this result as normal/abnormal . [place] 963423-02-27 06:27:00 Test Item Value Reference Range Interpretation Comments Basophils (test code = 1.2 See_Comment [Aut omated message] The Basophils) system which ge nerated this result tra nsmitted reference range : <=1.0. The reference r christiano was not used to int erpret this result as normal/abnormal . [place] 963423-02-27 06:27:00 Test Item Value Reference Range Interpretation Comments Neutrophils # (test code = Neutrophils 3.5 1.5-8.1 #) [place] [address]-02-27 06:27:00 Test Item Value Reference Range Interpretation Comments Lymphocytes # (test code = Lymphocytes 1.4 1.0-5.5 #) [place] [address]-02-27 06:27:00 Test Item Value Reference Range Interpretation Comments Monocytes # (test code 0.6 See_Comment [Aut omated message] The = Monocytes #) system which generated this result tra nsmitted reference range : <=0.8. The reference r christiano was not used to int erpret this result as normal/abnormal . [place] 963423-02-27 06:27:00 Test Item Value Reference Range Interpretation Comments Eosinophils # (test code 0.3 See_Comment [A utomated message] The = Eosinophils #) system whic h generated this result tra nsmitted reference range : <=0.5. The reference r christiano was not used to int erpret this result as normal/abnormal . [place] 963423-02-27 06:27:00 Test Item Value Reference Range Interpretation Comments Basophils # (test code 0.1 See_Comment [Aut omated message] The = Basophils #) system which generated this result tra nsmitted reference range : <=0.2. The reference r christiano was not used to int erpret this result as normal/abnormal . [facility] HospitalScbkqomKMHHVSLIMZ3817-76-09 06:27:00 Test Item Value Reference Range Interpretation Comments ACT (TEG) Rapid (test code = ACT (TEG) 121 s 86-118 Rapid) [facility] HospitalAdpwusiDZPFQVMLPT7908-15-63 06:27:00 Test Item Value Reference Range Interpretation Comments Split Point Rapid (test code = Split 0.6 min Point Rapid) [place] [id number] 06:27:00 Test Item Value Reference Range Interpretation Comments R-time Rapid (test code = R-time 0.8 min 0.4-0.7 Rapid) [place] [address]-02-27 06:27:00 Test Item Value Reference Range Interpretation Comments K-time Rapid (test code = K-time 0.8 min 0.6-2.3 Rapid) [place] [address]-02-27 06:27:00 Test Item Value Reference Range Interpretation Comments Angle Rapid (test code = Angle 79 degrees 64-80 Rapid) [place] 963423-02-27 06:27:00 Test Item Value Reference Range Interpretation Comments Max Amplitude Rapid (test code = Max 71 mm 52-71 Amplitude Rapid) [place] 963423-02-27 06:27:00 Test Item Value Reference Range Interpretation Comments G-value Rapid (test code = G-value 12.1 5.0-11.6 Rapid) [place] 963423-02-27 06:27:00 Test Item Value Reference Range Interpretation Comments Estimated % Lysis Rapid 0.0 See_Comment [Au tomated message] The (test code = Estimated syste m which generated % Lysis Rapid) this result t ransmitted reference range : <=7.5. The reference r christiano was not used to int erpret this result as normal/abnormal . [facility]ck[facility]zPBIXQFWDMP8192[facility]83-78 06:27:00 Test Item Value Reference Range Interpretation Comments RBC Morph (test code = Normal (11/27/22 12:27 RBC Morph) AM) [facility]UxbhdfaMACERNHFFZ2808-50-71 06:27:00 Test Item Value Reference Range Interpretation Comments Plt Morph (test code = Normal (11/27/22 12:27 Plt Morph) AM) [place] 963423-02-27 06:27:00 Test Item Value Reference Range Interpretation Comments Basophils # (test code 0.1 See_Comment [Aut omated message] The = Basophils #) system which generated this result tra nsmitted reference range : <=0.2. The reference r christiano was not used to int erpret this result as normal/abnormal . [facility]2023-02-27 06:27:00 Test Item Value Reference Range Interpretation Comments Glucose Lvl (test code = Glucose Lvl) 85 70-99 [place] 457353-02-27 06:27:00 Test Item Value Reference Range Interpretation Comments BUN (test code = BUN) 28 7-22 [place] 457353-02-27 06:27:00 Test Item Value Reference Range Interpretation Comments Creatinine Lvl (test code = Creatinine 2.19 0.50-1.40 Lvl) [facility]2023-02-27 06:27:00 Test Item Value Reference Range Interpretation Comments Sodium Lvl (test code = Sodium Lvl) 143 135-145 [place] 457353-02-27 06:27:00 Test Item Value Reference Range Interpretation Comments Potassium Lvl (test code = Potassium 4.3 3.5-5.1 Lvl) [facility]2023-02-27 06:27:00 Test Item Value Reference Range Interpretation Comments Chloride Lvl (test code = Chloride Lvl) 110 95-109 [facility]2023-02-27 06:27:00 Test Item Value Reference Range Interpretation Comments CO2 (test code = CO2) 27 24-32 [place] 457353-02-27 06:27:00 Test Item Value Reference Range Interpretation Comments Calcium Lvl (test code = Calcium Lvl) 8.1 8.5-10.5 [place] 457353-02-27 06:27:00 Test Item Value Reference Range Interpretation Comments AGAP (test code = AGAP) 10.3 10.0-20.0 [place] 457353-02-27 06:27:00 Test Item Value Reference Range Interpretation Comments eGFR (test code = eGFR) 22 [place] 457353-02-27 06:27:00 Test Item Value Reference Range Interpretation Comments Total Protein (test code = Total 6.6 6.4-8.4 Protein) [facility]2023-02-27 06:27:00 Test Item Value Reference Range Interpretation Comments Albumin Lvl (test code = Albumin Lvl) 3.0 3.5-5.0 [place] [address]-02-27 06:27:00 Test Item Value Reference Range Interpretation Comments Globulin (test code = Globulin) 3.6 2.7-4.2 [place] 457353-02-27 06:27:00 Test Item Value Reference Range Interpretation Comments A/G Ratio (test code = A/G Ratio) 0.8 1 0.7-1.6 [place] [address]-02-27 06:27:00 Test Item Value Reference Range Interpretation Comments ALANINE AMINOTRANSFERASE 21 See_Comment [A utomated message] (test code = ALANINE The sys tem which AMINOTRANSFERASE) generated this result transmitted ref erence range: <=65. Th e reference range was not used to int erpret this result as normal/abnormal . [facility] [id number] 06:27:00 Test Item Value Reference Range Interpretation Comments AST (test code = AST) 17 See_Comment [Auto mated message] The system which ge nerated this result transmit sheba reference range : <=37. The reference range was not used to interpr et this result as edy l/abnormal. [facility] [id number] 06:27:00 Test Item Value Reference Range Interpretation Comments Alk Phos (test code = Alk Phos) 84 39-136 [facility] [id number] 06:27:00 Test Item Value Reference Range Interpretation Comments Bili Total (test code = Bili Total) 0.3 0.2-1.3 [facility] [id number] 06:27:00 Test Item Value Reference Range Interpretation Comments Bili Direct (test code no gt See_Comment [Aut omated message] The = Bili Direct) system which generated this result tra nsmitted reference range : <=0.3. The reference r christiano was not used to int erpret this result as edy l/abnormal. [facility] [id number] 06:27:00 Test Item Value Reference Range Interpretation Comments Bili Indirect Unable to See_Comment [Automated (test code = Bili Calculate message] T he system Indirect) which generated this result transmitted reference range : <=1.0. The reference range was not used to interpret this result as normal/abnormal . [facility]2023-02-27 06:27:00 Test Item Value Reference Range Interpretation Comments Lactic Acid Lvl (test code = Lactic 0.5 0.5-2.2 Acid Lvl) [facility] TexasHcwtmmfPZHXDFLCA0943-36-11 06:27:00 Test Item Value Reference Range Interpretation Comments Total Protein (test code = Total 6.6 6.4-8.4 Protein) [facility] TexasScpisuxFLPPASXHN8318-31-29 06:27:00 Test Item Value Reference Range Interpretation Comments Albumin Lvl (test code = Albumin Lvl) 3.0 3.5-5.0 [place] [address]-02-27 06:27:00 Test Item Value Reference Range Interpretation Comments Globulin (test code = Globulin) 3.6 2.7-4.2 [facility] TexasJuorxopQLKESTWGZ6317-67-33 06:27:00 Test Item Value Reference Range Interpretation Comments A/G Ratio (test code = A/G Ratio) 0.8 1 0.7-1.6 [facility] TexasWhgipxdWNNUMYQVN6404-52-61 06:27:00 Test Item Value Reference Range Interpretation Comments ALANINE AMINOTRANSFERASE 21 See_Comment [A utomated message] (test code = ALANINE The sys tem which AMINOTRANSFERASE) generated this result transmitted ref erence range: <=65. Th e reference range was not used to int erpret this result as normal/abnormal . [facility] TexasPqaedinLERFOGWSK6988-39-19 06:27:00 Test Item Value Reference Range Interpretation Comments AST (test code = AST) 17 See_Comment [Auto mated message] The system which ge nerated this result transmit sheba reference range : <=37. The reference range was not used to interpr et this result as edy l/abnormal. [facility] TexasKaziywcXVOCWUQPH4227-63-94 06:27:00 Test Item Value Reference Range Interpretation Comments Alk Phos (test code = Alk Phos) 84 39-136 [facility] TexasWeqqajfXBBRFDSWH8571-55-87 06:27:00 Test Item Value Reference Range Interpretation Comments Bili Total (test code = Bili Total) 0.3 0.2-1.3 [facility] TexasAjgkunzNTDTRJLUV5636-14-82 06:27:00 Test Item Value Reference Range Interpretation Comments Bili Direct (test code no gt See_Comment [Aut omated message] The = Bili Direct) system which generated this result tra nsmitted reference range : <=0.3. The reference r chritsiano was not used to int erpret this result as edy l/abnormal. [facility] TexasDjkguvoBHLSVKWTV6940-83-28 06:27:00 Test Item Value Reference Range Interpretation Comments Bili Indirect Unable to See_Comment [Automated (test code = Bili Calculate message] T he system Indirect) which generated this result transmitted reference range : <=1.0. The reference range was not used to interpret this result as normal/abnormal . [facility] TexasAgchotjHAQKITUVO7245-76-19 06:27:00 Test Item Value Reference Range Interpretation Comments pH Justin (test code = pH Justin) 7.29 1 7.28-7.42 [facility] TexasLfsltarVOUKQJQMK0176-98-91 06:27:00 Test Item Value Reference Range Interpretation Comments pCO2 Justin (test code = pCO2 Justin) 65 38-52 [facility] TexasRfeptxwFYEWPHPBW5870-99-57 06:27:00 Test Item Value Reference Range Interpretation Comments pO2 Justin (test code = pO2 Justin) 37 20-49 [facility] TexasTyncegrZNSSAKLXA9144-38-23 06:27:00 Test Item Value Reference Range Interpretation Comments HCO3 Justin (test code = HCO3 Justin) 31 22-26 [facility] TexasOcxfpklQREKVHOCP7859-71-71 06:27:00 Test Item Value Reference Range Interpretation Comments BE Justin (test code = BE Justin) 3 -2-2 [facility] TexasPrihlmySFYYNEAVS8690-54-75 06:27:00 Test Item Value Reference Range Interpretation Comments O2 Sat Justin (calc) (test code = O2 Sat 63.0 40.0-70.0 Justin (calc)) [facility] TexasYojdvmvMIOGYRQHE5522-17-07 06:27:00 Test Item Value Reference Range Interpretation Comments Temp Justin (test code = Temp Justin) 37.0 [facility] TexasGzpkrjaGVGAGEJYW1815-22-94 06:27:00 Test Item Value Reference Range Interpretation Comments Lactic Acid Lvl (test code = Lactic 0.5 0.5-2.2 Acid Lvl) [facility] TexasTzfgkwwFBTQEAIUB6791-40-27 06:27:00 Test Item Value Reference Range Interpretation Comments TSH (test code = TSH) 0.403 0.360-3.740 [place] 963423-02-27 06:27:00 Test Item Value Reference Range Interpretation Comments WBC X 10x3 (test code = WBC X 10x3) 5.9 3.7-10.4 [place] 963423-02-27 06:27:00 Test Item Value Reference Range Interpretation Comments RBC X 10x6 (test code = RBC X 10x6) 3.67 4.20-5.40 [place] 963423-02-27 06:27:00 Test Item Value Reference Range Interpretation Comments Hgb (test code = Hgb) 10.7 12.0-16.0 [place] [address]-02-27 06:27:00 Test Item Value Reference Range Interpretation Comments Hct (test code = Hct) 33.5 36.0-48.0 [place] 963423-02-27 06:27:00 Test Item Value Reference Range Interpretation Comments MCV (test code = MCV) 91.4 80.0-98.0 [place] 963423-02-27 06:27:00 Test Item Value Reference Range Interpretation Comments MCH (test code = MCH) 29.3 pg 27.0-31.0 [facility] HospitalFgoydnwALAWVSQLSN5598-16-41 06:27:00 Test Item Value Reference Range Interpretation Comments MCHC (test code = MCHC) 32.0 32.0-36.0 [facility] HospitalWyzdkboUXJGRHWJAQ8631-15-24 06:27:00 Test Item Value Reference Range Interpretation Comments RDW (test code = RDW) 13.7 11.5-14.5 [place] 963423-02-27 06:27:00 Test Item Value Reference Range Interpretation Comments Platelet (test code = Platelet) 139 133-450 [place] 963423-02-27 06:27:00 Test Item Value Reference Range Interpretation Comments MPV (test code = MPV) 7.5 7.4-10.4 [place] 963423-02-27 06:27:00 Test Item Value Reference Range Interpretation Comments ACT (TEG) Rapid (test code = ACT (TEG) 121 s 86-118 Rapid) [facility] HospitalFfhhlsuMJBYGQYJOJ8958-85-19 06:27:00 Test Item Value Reference Range Interpretation Comments Split Point Rapid (test code = Split 0.6 min Point Rapid) [place] 963423-02-27 06:27:00 Test Item Value Reference Range Interpretation Comments R-time Rapid (test code = R-time 0.8 min 0.4-0.7 Rapid) [place] [address]-02-27 06:27:00 Test Item Value Reference Range Interpretation Comments K-time Rapid (test code = K-time 0.8 min 0.6-2.3 Rapid) [place] [address]-02-27 06:27:00 Test Item Value Reference Range Interpretation Comments Angle Rapid (test code = Angle 79 degrees 64-80 Rapid) [place] [address]-02-27 06:27:00 Test Item Value Reference Range Interpretation Comments Max Amplitude Rapid (test code = Max 71 mm 52-71 Amplitude Rapid) [place] [address]-02-27 06:27:00 Test Item Value Reference Range Interpretation Comments G-value Rapid (test code = G-value 12.1 5.0-11.6 Rapid) [place] [address]-02-27 06:27:00 Test Item Value Reference Range Interpretation Comments Estimated % Lysis Rapid 0.0 See_Comment [Au tomated message] The (test code = Estimated syste m which generated % Lysis Rapid) this result t ransmitted reference range : <=7.5. The reference r christiano was not used to int erpret this result as normal/abnormal . [facility] HospitalDtqljabFMUHETXQXE6250-84-18 06:27:00 Test Item Value Reference Range Interpretation Comments RBC Morph (test code = Normal (11/27/22 12:27 RBC Morph) AM) [place] 963423-02-27 06:27:00 Test Item Value Reference Range Interpretation Comments Plt Morph (test code = Normal (11/27/22 12:27 Plt Morph) AM) [place] [address]-02-27 06:27:00 Test Item Value Reference Range Interpretation Comments Segs (test code = Segs) 60.1 45.0-75.0 [place] [address]-02-27 06:27:00 Test Item Value Reference Range Interpretation Comments Lymphocytes (test code = Lymphocytes) 23.9 20.0-40.0 [place] [address]-02-27 06:27:00 Test Item Value Reference Range Interpretation Comments Monocytes (test code = Monocytes) 9.6 2.0-12.0 [facility] HospitalSqnpekzTNIWPLDKEJ5183-61-55 06:27:00 Test Item Value Reference Range Interpretation Comments Eosinophils (test code = 5.2 See_Comment [A utomated message] The Eosinophils) system which ge nerated this result tra nsmitted reference range : <=4.0. The reference r christiano was not used to int erpret this result as normal/abnormal . [facility] HospitalKqtlhbeYAHUSRXDRJ7826-69-58 06:27:00 Test Item Value Reference Range Interpretation Comments Basophils (test code = 1.2 See_Comment [Aut omated message] The Basophils) system which ge nerated this result tra nsmitted reference range : <=1.0. The reference r christiano was not used to int erpret this result as normal/abnormal . [facility] HospitalFbkvkcyHTTHXJQESX0367-08-92 06:27:00 Test Item Value Reference Range Interpretation Comments Neutrophils # (test code = Neutrophils 3.5 1.5-8.1 #) [facility] HospitalAmqhylpRFMZWJHGUJ1745-83-37 06:27:00 Test Item Value Reference Range Interpretation Comments Lymphocytes # (test code = Lymphocytes 1.4 1.0-5.5 #) [facility] HospitalLsocgdsTUFECSSAUS5105-57-05 06:27:00 Test Item Value Reference Range Interpretation Comments Monocytes # (test code 0.6 See_Comment [Aut omated message] The = Monocytes #) system which generated this result tra nsmitted reference range : <=0.8. The reference r christiano was not used to int erpret this result as normal/abnormal . [facility] HospitalNwkockjKOEJOOBNIK1159-43-62 06:27:00 Test Item Value Reference Range Interpretation Comments Eosinophils # (test code 0.3 See_Comment [A utomated message] The = Eosinophils #) system whic h generated this result tra nsmitted reference range : <=0.5. The reference r christiano was not used to int erpret this result as normal/abnormal . [facility] HospitalVsvqmutZKXAAMDJOD6517-37-66 06:27:00 Test Item Value Reference Range Interpretation Comments Basophils # (test code 0.1 See_Comment [Aut omated message] The = Basophils #) system which generated this result tra nsmitted reference range : <=0.2. The reference r christiano was not used to int erpret this result as normal/abnormal . [facility] HospitalPzxtcbpRSBCNMEXQK0168-25-33 06:27:00 Test Item Value Reference Range Interpretation Comments ACT (TEG) Rapid (test code = ACT (TEG) 121 s 86-118 Rapid) [place] 963423-02-27 06:27:00 Test Item Value Reference Range Interpretation Comments Split Point Rapid (test code = Split 0.6 min Point Rapid) [place] 963423-02-27 06:27:00 Test Item Value Reference Range Interpretation Comments R-time Rapid (test code = R-time 0.8 min 0.4-0.7 Rapid) [place] [address]-02-27 06:27:00 Test Item Value Reference Range Interpretation Comments K-time Rapid (test code = K-time 0.8 min 0.6-2.3 Rapid) [place] [address]-02-27 06:27:00 Test Item Value Reference Range Interpretation Comments Angle Rapid (test code = Angle 79 degrees 64-80 Rapid) [place] 963423-02-27 06:27:00 Test Item Value Reference Range Interpretation Comments Max Amplitude Rapid (test code = Max 71 mm 52-71 Amplitude Rapid) [place] 963423-02-27 06:27:00 Test Item Value Reference Range Interpretation Comments G-value Rapid (test code = G-value 12.1 5.0-11.6 Rapid) [facility] HospitalBklujnlBXSTVXYQNM0683-73-17 06:27:00 Test Item Value Reference Range Interpretation Comments Estimated % Lysis Rapid 0.0 See_Comment [Au tomated message] The (test code = Estimated syste m which generated % Lysis Rapid) this result t ransmitted reference range : <=7.5. The reference r christiano was not used to int erpret this result as normal/abnormal . [facility] HospitalLpbfdiuELZNYZZRIW9410-93-63 06:27:00 Test Item Value Reference Range Interpretation Comments RBC Morph (test code = Normal (11/27/22 12:27 RBC Morph) AM) [facility] HospitalYmeuldnBECYGTPFVZ3646-62-46 06:27:00 Test Item Value Reference Range Interpretation Comments Plt Morph (test code = Normal (11/27/22 12:27 Plt Morph) AM) [place] 963423-02-27 06:27:00 Test Item Value Reference Range Interpretation Comments Basophils # (test code 0.1 See_Comment [Aut omated message] The = Basophils #) system which generated this result tra nsmitted reference range : <=0.2. The reference r christiano was not used to int erpret this result as normal/abnormal . [facility]2023-02-27 06:27:00 Test Item Value Reference Range Interpretation Comments Glucose Lvl (test code = Glucose Lvl) 85 70-99 [place] 457353-02-27 06:27:00 Test Item Value Reference Range Interpretation Comments BUN (test code = BUN) 28 7-22 [place] 457353-02-27 06:27:00 Test Item Value Reference Range Interpretation Comments Creatinine Lvl (test code = Creatinine 2.19 0.50-1.40 Lvl) [place] 457353-02-27 06:27:00 Test Item Value Reference Range Interpretation Comments Sodium Lvl (test code = Sodium Lvl) 143 135-145 [place] 457353-02-27 06:27:00 Test Item Value Reference Range Interpretation Comments Potassium Lvl (test code = Potassium 4.3 3.5-5.1 Lvl) [facility]2023-02-27 06:27:00 Test Item Value Reference Range Interpretation Comments Chloride Lvl (test code = Chloride Lvl) 110 95-109 [place] 457353-02-27 06:27:00 Test Item Value Reference Range Interpretation Comments CO2 (test code = CO2) 27 24-32 [place] 457353-02-27 06:27:00 Test Item Value Reference Range Interpretation Comments Calcium Lvl (test code = Calcium Lvl) 8.1 8.5-10.5 [place] 457353-02-27 06:27:00 Test Item Value Reference Range Interpretation Comments AGAP (test code = AGAP) 10.3 10.0-20.0 [place] 457353-02-27 06:27:00 Test Item Value Reference Range Interpretation Comments eGFR (test code = eGFR) 22 [place] 457353-02-27 06:27:00 Test Item Value Reference Range Interpretation Comments Total Protein (test code = Total 6.6 6.4-8.4 Protein) [place] 457353-02-27 06:27:00 Test Item Value Reference Range Interpretation Comments Albumin Lvl (test code = Albumin Lvl) 3.0 3.5-5.0 [place] 457353-02-27 06:27:00 Test Item Value Reference Range Interpretation Comments Globulin (test code = Globulin) 3.6 2.7-4.2 [place] 457353-02-27 06:27:00 Test Item Value Reference Range Interpretation Comments A/G Ratio (test code = A/G Ratio) 0.8 1 0.7-1.6 [place] 457353-02-27 06:27:00 Test Item Value Reference Range Interpretation Comments ALANINE AMINOTRANSFERASE (test code = 21 <=65 ALANINE AMINOTRANSFERASE) [place] 457353-02-27 06:27:00 Test Item Value Reference Range Interpretation Comments AST (test code = AST) 17 <=37 [place] [address]-02-27 06:27:00 Test Item Value Reference Range Interpretation Comments Alk Phos (test code = Alk Phos) 84 39-136 [place] 457353-02-27 06:27:00 Test Item Value Reference Range Interpretation Comments Bili Total (test code = Bili Total) 0.3 0.2-1.3 [place] 457353-02-27 06:27:00 Test Item Value Reference Range Interpretation Comments Bili Direct (test code = Bili Direct) no gt <=0.3 [place] 457353-02-27 06:27:00 Test Item Value Reference Range Interpretation Comments Bili Indirect (test code Unable to Calculate <=1.0 = Bili Indirect) [place] 457353-02-27 06:27:00 Test Item Value Reference Range Interpretation Comments Lactic Acid Lvl (test code = Lactic 0.5 0.5-2.2 Acid Lvl) [place] 922233-02-27 06:27:00 Test Item Value Reference Range Interpretation Comments Total Protein (test code = Total 6.6 6.4-8.4 Protein) [place] 922233-02-27 06:27:00 Test Item Value Reference Range Interpretation Comments Albumin Lvl (test code = Albumin Lvl) 3.0 3.5-5.0 [place] 922233-02-27 06:27:00 Test Item Value Reference Range Interpretation Comments Globulin (test code = Globulin) 3.6 2.7-4.2 [facility]WdsdtwkUKMKLEFLM6427-65-21 06:27:00 Test Item Value Reference Range Interpretation Comments A/G Ratio (test code = A/G Ratio) 0.8 1 0.7-1.6 [facility] TexasVsgtpktZZAGIAOGY8912-59-41 06:27:00 Test Item Value Reference Range Interpretation Comments ALANINE AMINOTRANSFERASE (test code = 21 <=65 ALANINE AMINOTRANSFERASE) [facility] TexasIucgkvxKJMUGPBCQ0955-37-61 06:27:00 Test Item Value Reference Range Interpretation Comments AST (test code = AST) 17 <=37 [facility] TexasGywuiamCUHKSRRRW4162-33-97 06:27:00 Test Item Value Reference Range Interpretation Comments Alk Phos (test code = Alk Phos) 84 39-136 [facility] TexasDviiobtBLVIBBGDG8352-27-07 06:27:00 Test Item Value Reference Range Interpretation Comments Bili Total (test code = Bili Total) 0.3 0.2-1.3 [facility] TexasGcwqjonFRBIFGTDS3353-23-62 06:27:00 Test Item Value Reference Range Interpretation Comments Bili Direct (test code = Bili Direct) no gt <=0.3 [facility] TexasVboezopORWFKBGRT0127-89-54 06:27:00 Test Item Value Reference Range Interpretation Comments Bili Indirect (test code Unable to Calculate <=1.0 = Bili Indirect) [facility] TexasBkidqpuHABNMKHXC9071-48-36 06:27:00 Test Item Value Reference Range Interpretation Comments pH Justin (test code = pH Justin) 7.29 1 7.28-7.42 [facility] TexasYjmkesbZNYEICADD7644-88-37 06:27:00 Test Item Value Reference Range Interpretation Comments pCO2 Justin (test code = pCO2 Justin) 65 38-52 [facility] TexasXxjwftxXVCRMDRKD9688-43-63 06:27:00 Test Item Value Reference Range Interpretation Comments pO2 Justin (test code = pO2 Justin) 37 20-49 [facility] TexasVmggqjsBXPXAMDZA1866-06-07 06:27:00 Test Item Value Reference Range Interpretation Comments HCO3 Justin (test code = HCO3 Justin) 31 22-26 [facility] TexasAslqirbFQMVWDKST5355-48-95 06:27:00 Test Item Value Reference Range Interpretation Comments BE Justin (test code = BE Justin) 3 -2-2 [facility] TexasTesnzuzFHVCQEYXU5230-79-85 06:27:00 Test Item Value Reference Range Interpretation Comments O2 Sat Justin (calc) (test code = O2 Sat 63.0 40.0-70.0 Justin (calc)) [facility] TexasCeosedgWENJEOCJB2752-70-14 06:27:00 Test Item Value Reference Range Interpretation Comments Temp Justin (test code = Temp Justin) 37.0 [place] 922233-02-27 06:27:00 Test Item Value Reference Range Interpretation Comments Lactic Acid Lvl (test code = Lactic 0.5 0.5-2.2 Acid Lvl) [facility] TexasYyzrikkDGMKQNFPM8074-36-20 06:27:00 Test Item Value Reference Range Interpretation Comments TSH (test code = TSH) 0.403 0.360-3.740 [facility]MchwbexOAUTYZZKIO3100-56-40 06:27:00 Test Item Value Reference Range Interpretation Comments WBC X 10x3 (test code = WBC X 10x3) 5.9 3.7-10.4 [place] 963423-02-27 06:27:00 Test Item Value Reference Range Interpretation Comments RBC X 10x6 (test code = RBC X 10x6) 3.67 4.20-5.40 [place] 963423-02-27 06:27:00 Test Item Value Reference Range Interpretation Comments Hgb (test code = Hgb) 10.7 12.0-16.0 [facility] HospitalGdtxzetEDEWFHSDQY8300-56-05 06:27:00 Test Item Value Reference Range Interpretation Comments Hct (test code = Hct) 33.5 36.0-48.0 [place] 963423-02-27 06:27:00 Test Item Value Reference Range Interpretation Comments MCV (test code = MCV) 91.4 80.0-98.0 [place] 963423-02-27 06:27:00 Test Item Value Reference Range Interpretation Comments MCH (test code = MCH) 29.3 pg 27.0-31.0 [place] 963423-02-27 06:27:00 Test Item Value Reference Range Interpretation Comments MCHC (test code = MCHC) 32.0 32.0-36.0 [place] 963423-02-27 06:27:00 Test Item Value Reference Range Interpretation Comments RDW (test code = RDW) 13.7 11.5-14.5 [place] [address]-02-27 06:27:00 Test Item Value Reference Range Interpretation Comments Platelet (test code = Platelet) 139 133-450 [place] 963423-02-27 06:27:00 Test Item Value Reference Range Interpretation Comments MPV (test code = MPV) 7.5 7.4-10.4 [place] [address]-02-27 06:27:00 Test Item Value Reference Range Interpretation Comments ACT (TEG) Rapid (test code = ACT (TEG) 121 s 86-118 Rapid) [place] 963423-02-27 06:27:00 Test Item Value Reference Range Interpretation Comments Split Point Rapid (test code = Split 0.6 min Point Rapid) [place] [address]-02-27 06:27:00 Test Item Value Reference Range Interpretation Comments R-time Rapid (test code = R-time 0.8 min 0.4-0.7 Rapid) [place] 963423-02-27 06:27:00 Test Item Value Reference Range Interpretation Comments K-time Rapid (test code = K-time 0.8 min 0.6-2.3 Rapid) [place] 963423-02-27 06:27:00 Test Item Value Reference Range Interpretation Comments Angle Rapid (test code = Angle 79 degrees 64-80 Rapid) [place] 963423-02-27 06:27:00 Test Item Value Reference Range Interpretation Comments Max Amplitude Rapid (test code = Max 71 mm 52-71 Amplitude Rapid) [place] 963423-02-27 06:27:00 Test Item Value Reference Range Interpretation Comments G-value Rapid (test code = G-value 12.1 5.0-11.6 Rapid) [place] 963423-02-27 06:27:00 Test Item Value Reference Range Interpretation Comments Estimated % Lysis Rapid (test code = 0.0 <=7.5 Estimated % Lysis Rapid) [place] 963423-02-27 06:27:00 Test Item Value Reference Range Interpretation Comments RBC Morph (test code = Normal (11/27/22 12:27 RBC Morph) AM) [place] 963423-02-27 06:27:00 Test Item Value Reference Range Interpretation Comments Plt Morph (test code = Normal (11/27/22 12:27 Plt Morph) AM) [facility] HospitalHnsbywwKLBYNCAKJT4153-58-00 06:27:00 Test Item Value Reference Range Interpretation Comments Segs (test code = Segs) 60.1 45.0-75.0 [facility] HospitalMnbwlzxAVOKBIQHRL2121-65-02 06:27:00 Test Item Value Reference Range Interpretation Comments Lymphocytes (test code = Lymphocytes) 23.9 20.0-40.0 [facility] HospitalWkhtlgrNLHTPIRVLK5463-16-37 06:27:00 Test Item Value Reference Range Interpretation Comments Monocytes (test code = Monocytes) 9.6 2.0-12.0 [place] 963423-02-27 06:27:00 Test Item Value Reference Range Interpretation Comments Eosinophils (test code = Eosinophils) 5.2 <=4.0 [facility] HospitalGvoskamKXYCPRYEJX0738-63-20 06:27:00 Test Item Value Reference Range Interpretation Comments Basophils (test code = Basophils) 1.2 <=1.0 [facility] HospitalNymksujDHQJIFERRO6922-31-45 06:27:00 Test Item Value Reference Range Interpretation Comments Neutrophils # (test code = Neutrophils 3.5 1.5-8.1 #) [facility] HospitalPqvuxjoOVMSODIPMX1187-75-30 06:27:00 Test Item Value Reference Range Interpretation Comments Lymphocytes # (test code = Lymphocytes 1.4 1.0-5.5 #) [facility] HospitalYsdgnlfKUIRCSPWYX3406-83-08 06:27:00 Test Item Value Reference Range Interpretation Comments Monocytes # (test code = Monocytes #) 0.6 <=0.8 [facility] HospitalJomnwdoQPQOKLYOUD0542-85-98 06:27:00 Test Item Value Reference Range Interpretation Comments Eosinophils # (test code = Eosinophils 0.3 <=0.5 #) [facility] HospitalRuteqraZDOKDCHOXN9709-46-48 06:27:00 Test Item Value Reference Range Interpretation Comments Basophils # (test code = Basophils #) 0.1 <=0.2 [place] 963423-02-27 06:27:00 Test Item Value Reference Range Interpretation Comments ACT (TEG) Rapid (test code = ACT (TEG) 121 s 86-118 Rapid) [facility] HospitalHlxjzkmBUNINAJYTI2449-17-41 06:27:00 Test Item Value Reference Range Interpretation Comments Split Point Rapid (test code = Split 0.6 min Point Rapid) [facility] HospitalXpxxxbaEUMCHDDZFA9636-47-59 06:27:00 Test Item Value Reference Range Interpretation Comments R-time Rapid (test code = R-time 0.8 min 0.4-0.7 Rapid) [place] 963423-02-27 06:27:00 Test Item Value Reference Range Interpretation Comments K-time Rapid (test code = K-time 0.8 min 0.6-2.3 Rapid) [place] [address]-02-27 06:27:00 Test Item Value Reference Range Interpretation Comments Angle Rapid (test code = Angle 79 degrees 64-80 Rapid) [place] [address]-02-27 06:27:00 Test Item Value Reference Range Interpretation Comments Max Amplitude Rapid (test code = Max 71 mm 52-71 Amplitude Rapid) [place] [address]-02-27 06:27:00 Test Item Value Reference Range Interpretation Comments G-value Rapid (test code = G-value 12.1 5.0-11.6 Rapid) [place] [address]-02-27 06:27:00 Test Item Value Reference Range Interpretation Comments Estimated % Lysis Rapid (test code = 0.0 <=7.5 Estimated % Lysis Rapid) [place] [address]-02-27 06:27:00 Test Item Value Reference Range Interpretation Comments RBC Morph (test code = Normal (11/27/22 12:27 RBC Morph) AM) [place] [address]-02-27 06:27:00 Test Item Value Reference Range Interpretation Comments Plt Morph (test code = Normal (11/27/22 12:27 Plt Morph) AM) [place] 963423-02-27 06:27:00 Test Item Value Reference Range Interpretation Comments Basophils # (test code = Basophils #) 0.1 <=0.2 [place] 457353-02-27 06:27:00 Test Item Value Reference Range Interpretation Comments Glucose Lvl (test code = Glucose Lvl) 85 70-99 [place] 457353-02-27 06:27:00 Test Item Value Reference Range Interpretation Comments BUN (test code = BUN) 28 7-22 [place] 457353-02-27 06:27:00 Test Item Value Reference Range Interpretation Comments Creatinine Lvl (test code = Creatinine 2.19 0.50-1.40 Lvl) [place] 457353-02-27 06:27:00 Test Item Value Reference Range Interpretation Comments Sodium Lvl (test code = Sodium Lvl) 143 135-145 [place] 457353-02-27 06:27:00 Test Item Value Reference Range Interpretation Comments Potassium Lvl (test code = Potassium 4.3 3.5-5.1 Lvl) [place] 457353-02-27 06:27:00 Test Item Value Reference Range Interpretation Comments Chloride Lvl (test code = Chloride Lvl) 110 95-109 [place] 457353-02-27 06:27:00 Test Item Value Reference Range Interpretation Comments CO2 (test code = CO2) 27 24-32 [place] 457353-02-27 06:27:00 Test Item Value Reference Range Interpretation Comments Calcium Lvl (test code = Calcium Lvl) 8.1 8.5-10.5 [place] 457353-02-27 06:27:00 Test Item Value Reference Range Interpretation Comments AGAP (test code = AGAP) 10.3 10.0-20.0 [place] 457353-02-27 06:27:00 Test Item Value Reference Range Interpretation Comments eGFR (test code = eGFR) 22 [place] 457353-02-27 06:27:00 Test Item Value Reference Range Interpretation Comments Total Protein (test code = Total 6.6 6.4-8.4 Protein) [place] 457353-02-27 06:27:00 Test Item Value Reference Range Interpretation Comments Albumin Lvl (test code = Albumin Lvl) 3.0 3.5-5.0 [place] 457353-02-27 06:27:00 Test Item Value Reference Range Interpretation Comments Globulin (test code = Globulin) 3.6 2.7-4.2 [place] 457353-02-27 06:27:00 Test Item Value Reference Range Interpretation Comments A/G Ratio (test code = A/G Ratio) 0.8 1 0.7-1.6 [place] 457353-02-27 06:27:00 Test Item Value Reference Range Interpretation Comments ALANINE AMINOTRANSFERASE (test code = 21 <=65 ALANINE AMINOTRANSFERASE) [place] 457353-02-27 06:27:00 Test Item Value Reference Range Interpretation Comments AST (test code = AST) 17 <=37 [facility]2023-02-27 06:27:00 Test Item Value Reference Range Interpretation Comments Alk Phos (test code = Alk Phos) 84 39-136 [place] 457353-02-27 06:27:00 Test Item Value Reference Range Interpretation Comments Bili Total (test code = Bili Total) 0.3 0.2-1.3 [place] 457353-02-27 06:27:00 Test Item Value Reference Range Interpretation Comments Bili Direct (test code = Bili Direct) no gt <=0.3 [place] 457353-02-27 06:27:00 Test Item Value Reference Range Interpretation Comments Bili Indirect (test code Unable to Calculate <=1.0 = Bili Indirect) [facility]2023-02-27 06:27:00 Test Item Value Reference Range Interpretation Comments Lactic Acid Lvl (test code = Lactic 0.5 0.5-2.2 Acid Lvl) [place] 922233-02-27 06:27:00 Test Item Value Reference Range Interpretation Comments Total Protein (test code = Total 6.6 6.4-8.4 Protein) [facility]KonpxsgTDFJDDKQR5126-21-34 06:27:00 Test Item Value Reference Range Interpretation Comments Albumin Lvl (test code = Albumin Lvl) 3.0 3.5-5.0 [place] [address]-02-27 06:27:00 Test Item Value Reference Range Interpretation Comments Globulin (test code = Globulin) 3.6 2.7-4.2 [place] 922233-02-27 06:27:00 Test Item Value Reference Range Interpretation Comments A/G Ratio (test code = A/G Ratio) 0.8 1 0.7-1.6 [place] [address]-02-27 06:27:00 Test Item Value Reference Range Interpretation Comments ALANINE AMINOTRANSFERASE (test code = 21 <=65 ALANINE AMINOTRANSFERASE) [facility]AkdbpiwTRDAMMVNS9236-35-12 06:27:00 Test Item Value Reference Range Interpretation Comments AST (test code = AST) 17 <=37 [place] 922233-02-27 06:27:00 Test Item Value Reference Range Interpretation Comments Alk Phos (test code = Alk Phos) 84 39-136 [facility] TexasOcyadsqVBVZIRPKX3361-52-71 06:27:00 Test Item Value Reference Range Interpretation Comments Bili Total (test code = Bili Total) 0.3 0.2-1.3 [facility] TexasIjiukorDIZEDSGGY5730-90-13 06:27:00 Test Item Value Reference Range Interpretation Comments Bili Direct (test code = Bili Direct) no gt <=0.3 [facility] TexasOngvojeVSPNEUPGL7722-08-43 06:27:00 Test Item Value Reference Range Interpretation Comments Bili Indirect (test code Unable to Calculate <=1.0 = Bili Indirect) [facility] TexasOiscjpgKRZIVANWO5848-85-48 06:27:00 Test Item Value Reference Range Interpretation Comments pH Justin (test code = pH Justin) 7.29 1 7.28-7.42 [facility] TexasGqagczcPKPCVRSSG7022-59-61 06:27:00 Test Item Value Reference Range Interpretation Comments pCO2 Justin (test code = pCO2 Justin) 65 38-52 [facility] TexasBctskxvHKHBZINRM6980-73-58 06:27:00 Test Item Value Reference Range Interpretation Comments pO2 Justin (test code = pO2 Justin) 37 20-49 [facility] TexasNlppklhNODBZUILO7966-83-20 06:27:00 Test Item Value Reference Range Interpretation Comments HCO3 Justin (test code = HCO3 Justin) 31 22-26 [facility] TexasUhwtxeiQFDYFEFNB1926-77-06 06:27:00 Test Item Value Reference Range Interpretation Comments BE Justin (test code = BE Justin) 3 -2-2 [facility] TexasVjodelzBBZMOPOLH1840-72-46 06:27:00 Test Item Value Reference Range Interpretation Comments O2 Sat Justin (calc) (test code = O2 Sat 63.0 40.0-70.0 Justin (calc)) [facility] TexasVlvmenrAAJXCHBLW9794-06-18 06:27:00 Test Item Value Reference Range Interpretation Comments Temp Justin (test code = Temp Justin) 37.0 [facility] TexasQltlbxpXTMDKNOHM1580-74-86 06:27:00 Test Item Value Reference Range Interpretation Comments Lactic Acid Lvl (test code = Lactic 0.5 0.5-2.2 Acid Lvl) [facility] TexasLbpcpvyPCYAWPXGM9358-95-30 06:27:00 Test Item Value Reference Range Interpretation Comments TSH (test code = TSH) 0.403 0.360-3.740 [facility]ZfrymiuEOAXRCXRYB6405-03-88 06:27:00 Test Item Value Reference Range Interpretation Comments WBC X 10x3 (test code = WBC X 10x3) 5.9 3.7-10.4 [place] 963423-02-27 06:27:00 Test Item Value Reference Range Interpretation Comments RBC X 10x6 (test code = RBC X 10x6) 3.67 4.20-5.40 [place] 963423-02-27 06:27:00 Test Item Value Reference Range Interpretation Comments Hgb (test code = Hgb) 10.7 12.0-16.0 [place] 963423-02-27 06:27:00 Test Item Value Reference Range Interpretation Comments Hct (test code = Hct) 33.5 36.0-48.0 [facility] HospitalAybptfqMBCHEZMWVF5696-88-72 06:27:00 Test Item Value Reference Range Interpretation Comments MCV (test code = MCV) 91.4 80.0-98.0 [place] 963423-02-27 06:27:00 Test Item Value Reference Range Interpretation Comments MCH (test code = MCH) 29.3 pg 27.0-31.0 [facility] HospitalVzaxetpBUWDVFGSFZ8886-32-08 06:27:00 Test Item Value Reference Range Interpretation Comments MCHC (test code = MCHC) 32.0 32.0-36.0 [facility] HospitalXdqqedpCNEDJLWQID7530-27-74 06:27:00 Test Item Value Reference Range Interpretation Comments RDW (test code = RDW) 13.7 11.5-14.5 [facility] HospitalOuwnlfsZUBPIPWGES3451-16-02 06:27:00 Test Item Value Reference Range Interpretation Comments Platelet (test code = Platelet) 139 133-450 [facility] HospitalUoaosubPKNYSXGMMO1511-00-70 06:27:00 Test Item Value Reference Range Interpretation Comments MPV (test code = MPV) 7.5 7.4-10.4 [place] 963423-02-27 06:27:00 Test Item Value Reference Range Interpretation Comments ACT (TEG) Rapid (test code = ACT (TEG) 121 s 86-118 Rapid) [facility] HospitalVzmczfsVQEIJTFKNC0761-09-54 06:27:00 Test Item Value Reference Range Interpretation Comments Split Point Rapid (test code = Split 0.6 min Point Rapid) [facility] HospitalUbmpthfTSVBRKTYAY1018-68-49 06:27:00 Test Item Value Reference Range Interpretation Comments R-time Rapid (test code = R-time 0.8 min 0.4-0.7 Rapid) [place] 963423-02-27 06:27:00 Test Item Value Reference Range Interpretation Comments K-time Rapid (test code = K-time 0.8 min 0.6-2.3 Rapid) [place] 963423-02-27 06:27:00 Test Item Value Reference Range Interpretation Comments Angle Rapid (test code = Angle 79 degrees 64-80 Rapid) [place] 963423-02-27 06:27:00 Test Item Value Reference Range Interpretation Comments Max Amplitude Rapid (test code = Max 71 mm 52-71 Amplitude Rapid) [place] 963423-02-27 06:27:00 Test Item Value Reference Range Interpretation Comments G-value Rapid (test code = G-value 12.1 5.0-11.6 Rapid) [place] 963423-02-27 06:27:00 Test Item Value Reference Range Interpretation Comments Estimated % Lysis Rapid (test code = 0.0 <=7.5 Estimated % Lysis Rapid) [place] 963423-02-27 06:27:00 Test Item Value Reference Range Interpretation Comments RBC Morph (test code = Normal (11/27/22 12:27 RBC Morph) AM) [facility] HospitalBkxnrwgBCBNFIXIXG7359-89-42 06:27:00 Test Item Value Reference Range Interpretation Comments Plt Morph (test code = Normal (11/27/22 12:27 Plt Morph) AM) [facility] HospitalItlmfvzWUWVJWFJEH7502-61-83 06:27:00 Test Item Value Reference Range Interpretation Comments Segs (test code = Segs) 60.1 45.0-75.0 [place] 963423-02-27 06:27:00 Test Item Value Reference Range Interpretation Comments Lymphocytes (test code = Lymphocytes) 23.9 20.0-40.0 [place] 963423-02-27 06:27:00 Test Item Value Reference Range Interpretation Comments Monocytes (test code = Monocytes) 9.6 2.0-12.0 [place] 963423-02-27 06:27:00 Test Item Value Reference Range Interpretation Comments Eosinophils (test code = Eosinophils) 5.2 <=4.0 [place] [address]-02-27 06:27:00 Test Item Value Reference Range Interpretation Comments Basophils (test code = Basophils) 1.2 <=1.0 [place] [address]-02-27 06:27:00 Test Item Value Reference Range Interpretation Comments Neutrophils # (test code = Neutrophils 3.5 1.5-8.1 #) [place] 963423-02-27 06:27:00 Test Item Value Reference Range Interpretation Comments Lymphocytes # (test code = Lymphocytes 1.4 1.0-5.5 #) [place] [address]-02-27 06:27:00 Test Item Value Reference Range Interpretation Comments Monocytes # (test code = Monocytes #) 0.6 <=0.8 [place] [address]:27:00 Test Item Value Reference Range Interpretation Comments Eosinophils # (test code = Eosinophils 0.3 <=0.5 #) [place] [address]-02-27 06:27:00 Test Item Value Reference Range Interpretation Comments Basophils # (test code = Basophils #) 0.1 <=0.2 [place] [address]-02-27 06:27:00 Test Item Value Reference Range Interpretation Comments ACT (TEG) Rapid (test code = ACT (TEG) 121 s 86-118 Rapid) [place] [address]-02-27 06:27:00 Test Item Value Reference Range Interpretation Comments Split Point Rapid (test code = Split 0.6 min Point Rapid) [place] [address]-02-27 06:27:00 Test Item Value Reference Range Interpretation Comments R-time Rapid (test code = R-time 0.8 min 0.4-0.7 Rapid) [place] [address]-02-27 06:27:00 Test Item Value Reference Range Interpretation Comments K-time Rapid (test code = K-time 0.8 min 0.6-2.3 Rapid) [place] [address]-02-27 06:27:00 Test Item Value Reference Range Interpretation Comments Angle Rapid (test code = Angle 79 degrees 64-80 Rapid) [place] [address]-02-27 06:27:00 Test Item Value Reference Range Interpretation Comments Max Amplitude Rapid (test code = Max 71 mm 52-71 Amplitude Rapid) [place] [address]-02-27 06:27:00 Test Item Value Reference Range Interpretation Comments G-value Rapid (test code = G-value 12.1 5.0-11.6 Rapid) [facility] HospitalTjnnqiyWBYITXKKWG3875-60-28 06:27:00 Test Item Value Reference Range Interpretation Comments Estimated % Lysis Rapid (test code = 0.0 <=7.5 Estimated % Lysis Rapid) [facility] HospitalQrdehsxCZUKJPNHXS4091-91-23 06:27:00 Test Item Value Reference Range Interpretation Comments RBC Morph (test code = Normal (11/27/22 12:27 RBC Morph) AM) [facility] HospitalYbspakpVZPRZPSCXW5035-99-16 06:27:00 Test Item Value Reference Range Interpretation Comments Plt Morph (test code = Normal (11/27/22 12:27 Plt Morph) AM) [facility] HospitalFwmisghZDAJEGGZGM1852-62-23 06:27:00 Test Item Value Reference Range Interpretation Comments Basophils # (test code = Basophils #) 0.1 <=0.2 [facility]VchwyynEBQKUYUWL9443-50-51 13:17:00 Test Item Value Reference Range Interpretation Comments Glucose Lvl (test code = Glucose Lvl) 65 70-99 [facility] TexasRenawogRQCLGLTUW5910-13-32 13:17:00 Test Item Value Reference Range Interpretation Comments BUN (test code = BUN) 39 7-22 [facility] TexasMqybvacFTLIZVLNH6189-71-31 13:17:00 Test Item Value Reference Range Interpretation Comments Creatinine Lvl (test code = Creatinine 2.03 0.50-1.40 Lvl) [facility] TexasNxwruzeNSQSFCWWC0796-88-38 13:17:00 Test Item Value Reference Range Interpretation Comments Sodium Lvl (test code = Sodium Lvl) 139 135-145 [facility] TexasBvrlscuSTKIAZYST3386-01-56 13:17:00 Test Item Value Reference Range Interpretation Comments Potassium Lvl (test code = Potassium 4.7 3.5-5.1 Lvl) [facility] TexasYfetafcZGDJSGPYN4258-31-96 13:17:00 Test Item Value Reference Range Interpretation Comments Chloride Lvl (test code = Chloride Lvl) 107 95-109 [place] 922233-02-22 13:17:00 Test Item Value Reference Range Interpretation Comments CO2 (test code = CO2) 26 24-32 [place] 922233-02-22 13:17:00 Test Item Value Reference Range Interpretation Comments Calcium Lvl (test code = Calcium Lvl) 8.1 8.5-10.5 [facility] TexasPjxqmnzFXAXXSDJX1710-10-22 13:17:00 Test Item Value Reference Range Interpretation Comments AGAP (test code = AGAP) 10.7 10.0-20.0 [facility] TexasZowfhicBHPCWEKQT9656-82-05 13:17:00 Test Item Value Reference Range Interpretation Comments eGFR (test code = eGFR) 24 [facility] TexasVssslihHOWLKWZFM7089-31-06 13:17:00 Test Item Value Reference Range Interpretation Comments Ca Ion WB (test code = Ca Ion WB) 1.06 1.05-1.25 [facility] TexasVtlafqwPWHXBXIVL4500-23-22 13:17:00 Test Item Value Reference Range Interpretation Comments Ca Ion at pH 7.4 WB (test code = Ca Ion 1.03 1.05-1.25 at pH 7.4 WB) [facility] TexasKbpvldoDEJKVPWRW3736-57-23 13:17:00 Test Item Value Reference Range Interpretation Comments Magnesium Lvl (test code = Magnesium 2.7 1.8-2.4 Lvl) [facility] TexasGhoilfhHEIOCWZFU3741-79-94 13:17:00 Test Item Value Reference Range Interpretation Comments Phosphorus (test code = Phosphorus) 3.9 2.5-4.5 [facility] HospitalCumocpnCEUMTQHTEI5611-86-58 13:17:00 Test Item Value Reference Range Interpretation Comments Segs (test code = Segs) 54.4 45.0-75.0 [facility] HospitalWyrnwshOVJHGFKUDS6307-32-29 13:17:00 Test Item Value Reference Range Interpretation Comments Lymphocytes (test code = Lymphocytes) 29.3 20.0-40.0 [place] 963423-02-22 13:17:00 Test Item Value Reference Range Interpretation Comments Monocytes (test code = Monocytes) 10.5 2.0-12.0 [place] 963423-02-22 13:17:00 Test Item Value Reference Range Interpretation Comments Eosinophils (test code = 5.0 See_Comment [A utomated message] The Eosinophils) system which ge nerated this result tra nsmitted reference range : <=4.0. The reference r christiano was not used to int erpret this result as normal/abnormal . [facility] HospitalIkjjjwnLXZNLJTQLE7557-48-94 13:17:00 Test Item Value Reference Range Interpretation Comments Basophils (test code = 0.8 See_Comment [Aut omated message] The Basophils) system which ge nerated this result tra nsmitted reference range : <=1.0. The reference r christiano was not used to int erpret this result as normal/abnormal . [place] 963423-02-22 13:17:00 Test Item Value Reference Range Interpretation Comments Neutrophils # (test code = Neutrophils 4.1 1.5-8.1 #) [place] 963423-02-22 13:17:00 Test Item Value Reference Range Interpretation Comments Lymphocytes # (test code = Lymphocytes 2.2 1.0-5.5 #) [place] 963423-02-22 13:17:00 Test Item Value Reference Range Interpretation Comments Monocytes # (test code 0.8 See_Comment [Aut omated message] The = Monocytes #) system which generated this result tra nsmitted reference range : <=0.8. The reference r christiano was not used to int erpret this result as normal/abnormal . [place] 963423-02-22 13:17:00 Test Item Value Reference Range Interpretation Comments Eosinophils # (test code 0.4 See_Comment [A utomated message] The = Eosinophils #) system whic h generated this result tra nsmitted reference range : <=0.5. The reference r christiano was not used to int erpret this result as normal/abnormal . [place] 963423-02-22 13:17:00 Test Item Value Reference Range Interpretation Comments Basophils # (test code 0.1 See_Comment [Aut omated message] The = Basophils #) system which generated this result tra nsmitted reference range : <=0.2. The reference r christiano was not used to int erpret this result as normal/abnormal . [place] 963423-02-22 13:17:00 Test Item Value Reference Range Interpretation Comments WBC (test code = WBC) 7.5 3.7-10.4 [place] 963423-02-22 13:17:00 Test Item Value Reference Range Interpretation Comments RBC (test code = RBC) 3.30 4.20-5.40 [place] [address]-02-22 13:17:00 Test Item Value Reference Range Interpretation Comments Hgb (test code = Hgb) 9.9 12.0-16.0 [facility] HospitalXlrqaiwIGXZWBITEJ6441-82-26 13:17:00 Test Item Value Reference Range Interpretation Comments Hct (test code = Hct) 30.3 36.0-48.0 [facility]RsihvvhYLRJNLSLCQ2907-47-22 13:17:00 Test Item Value Reference Range Interpretation Comments MCV (test code = MCV) 91.8 80.0-98.0 [place] 963423-02-22 13:17:00 Test Item Value Reference Range Interpretation Comments MCH (test code = MCH) 30.0 pg 27.0-31.0 [facility] HospitalLyiozioHXWQWSLCJK4907-45-45 13:17:00 Test Item Value Reference Range Interpretation Comments MCHC (test code = MCHC) 32.7 32.0-36.0 [facility] HospitalPvwxhrbJHMDWQNOXP9143-87-05 13:17:00 Test Item Value Reference Range Interpretation Comments RDW (test code = RDW) 14.4 11.5-14.5 [facility] HospitalEloozlyDMUIQWEZAR7269-50-72 13:17:00 Test Item Value Reference Range Interpretation Comments Platelet (test code = Platelet) 136 133-450 [facility] HospitalSumofvyLEEJZSJGYP8209-43-27 13:17:00 Test Item Value Reference Range Interpretation Comments MPV (test code = MPV) 8.7 7.4-10.4 [facility]WomthrtNEUBBPKPP3700-24-30 13:17:00 Test Item Value Reference Range Interpretation Comments Glucose Lvl (test code = Glucose Lvl) 65 70-99 [facility] TexasCrbcvovPOMQWTKIZ9552-62-57 13:17:00 Test Item Value Reference Range Interpretation Comments BUN (test code = BUN) 39 7-22 [facility] TexasPyexumcHKKLTOZSQ8959-10-70 13:17:00 Test Item Value Reference Range Interpretation Comments Creatinine Lvl (test code = Creatinine 2.03 0.50-1.40 Lvl) [facility] TexasOslbhebZTFXRKJYL6448-18-41 13:17:00 Test Item Value Reference Range Interpretation Comments Sodium Lvl (test code = Sodium Lvl) 139 135-145 [facility] TexasDnqnichLIXPKNOTI9070-74-32 13:17:00 Test Item Value Reference Range Interpretation Comments Potassium Lvl (test code = Potassium 4.7 3.5-5.1 Lvl) [facility] TexasKwzjkwiAEXYXBSCJ7119-95-43 13:17:00 Test Item Value Reference Range Interpretation Comments Chloride Lvl (test code = Chloride Lvl) 107 95-109 [facility] TexasXeptwopDPFSVDADM5104-23-82 13:17:00 Test Item Value Reference Range Interpretation Comments CO2 (test code = CO2) 26 24-32 [facility] TexasFqbcmthXQWIZESEC8819-91-63 13:17:00 Test Item Value Reference Range Interpretation Comments Calcium Lvl (test code = Calcium Lvl) 8.1 8.5-10.5 [facility] TexasXvrhbjlURJMICBAL9328-68-14 13:17:00 Test Item Value Reference Range Interpretation Comments AGAP (test code = AGAP) 10.7 10.0-20.0 [facility] TexasPkpnbrvJQURTAUIB0269-68-06 13:17:00 Test Item Value Reference Range Interpretation Comments eGFR (test code = eGFR) 24 [facility] TexasIupgegsQYQFGGKHS2901-58-87 13:17:00 Test Item Value Reference Range Interpretation Comments Ca Ion WB (test code = Ca Ion WB) 1.06 1.05-1.25 [facility] TexasXstsemcKFEBOUAYJ0697-28-20 13:17:00 Test Item Value Reference Range Interpretation Comments Ca Ion at pH 7.4 WB (test code = Ca Ion 1.03 1.05-1.25 at pH 7.4 WB) [facility] TexasKnwcimjAIZRXNFVQ1829-87-78 13:17:00 Test Item Value Reference Range Interpretation Comments Magnesium Lvl (test code = Magnesium 2.7 1.8-2.4 Lvl) [facility] TexasPezyzpoIBEQRUOXI5661-98-11 13:17:00 Test Item Value Reference Range Interpretation Comments Phosphorus (test code = Phosphorus) 3.9 2.5-4.5 [facility] HospitalJlwcyosJRRVSNXFEP0255-77-23 13:17:00 Test Item Value Reference Range Interpretation Comments Segs (test code = Segs) 54.4 45.0-75.0 [facility] HospitalUlajxywDQOARWEJRH8783-70-94 13:17:00 Test Item Value Reference Range Interpretation Comments Lymphocytes (test code = Lymphocytes) 29.3 20.0-40.0 [place] 963423-02-22 13:17:00 Test Item Value Reference Range Interpretation Comments Monocytes (test code = Monocytes) 10.5 2.0-12.0 [facility] HospitalKzucehjYXHFUZHOZF5686-12-39 13:17:00 Test Item Value Reference Range Interpretation Comments Eosinophils (test code = 5.0 See_Comment [A utomated message] The Eosinophils) system which ge nerated this result tra nsmitted reference range : <=4.0. The reference r christiano was not used to int erpret this result as normal/abnormal . [place] 963423-02-22 13:17:00 Test Item Value Reference Range Interpretation Comments Basophils (test code = 0.8 See_Comment [Aut omated message] The Basophils) system which ge nerated this result tra nsmitted reference range : <=1.0. The reference r christiano was not used to int erpret this result as normal/abnormal . [place] 963423-02-22 13:17:00 Test Item Value Reference Range Interpretation Comments Neutrophils # (test code = Neutrophils 4.1 1.5-8.1 #) [place] 963423-02-22 13:17:00 Test Item Value Reference Range Interpretation Comments Lymphocytes # (test code = Lymphocytes 2.2 1.0-5.5 #) [place] 963423-02-22 13:17:00 Test Item Value Reference Range Interpretation Comments Monocytes # (test code 0.8 See_Comment [Aut omated message] The = Monocytes #) system which generated this result tra nsmitted reference range : <=0.8. The reference r christiano was not used to int erpret this result as normal/abnormal . [place] 963423-02-22 13:17:00 Test Item Value Reference Range Interpretation Comments Eosinophils # (test code 0.4 See_Comment [A utomated message] The = Eosinophils #) system whic h generated this result tra nsmitted reference range : <=0.5. The reference r christiano was not used to int erpret this result as normal/abnormal . [place] 963423-02-22 13:17:00 Test Item Value Reference Range Interpretation Comments Basophils # (test code 0.1 See_Comment [Aut omated message] The = Basophils #) system which generated this result tra nsmitted reference range : <=0.2. The reference r christiano was not used to int erpret this result as normal/abnormal . [place] 963423-02-22 13:17:00 Test Item Value Reference Range Interpretation Comments WBC (test code = WBC) 7.5 3.7-10.4 [place] 963423-02-22 13:17:00 Test Item Value Reference Range Interpretation Comments RBC (test code = RBC) 3.30 4.20-5.40 [facility] HospitalUszcwqjSZPGBUXRKQ3612-24-31 13:17:00 Test Item Value Reference Range Interpretation Comments Hgb (test code = Hgb) 9.9 12.0-16.0 [place] 963423-02-22 13:17:00 Test Item Value Reference Range Interpretation Comments Hct (test code = Hct) 30.3 36.0-48.0 [place] 963423-02-22 13:17:00 Test Item Value Reference Range Interpretation Comments MCV (test code = MCV) 91.8 80.0-98.0 [place] 963423-02-22 13:17:00 Test Item Value Reference Range Interpretation Comments MCH (test code = MCH) 30.0 pg 27.0-31.0 [place] 963423-02-22 13:17:00 Test Item Value Reference Range Interpretation Comments MCHC (test code = MCHC) 32.7 32.0-36.0 [facility] HospitalXdeuygpHEXIBCNZLA2370-73-64 13:17:00 Test Item Value Reference Range Interpretation Comments RDW (test code = RDW) 14.4 11.5-14.5 [facility] HospitalMqzbljtQSEGHSMUIA2410-03-67 13:17:00 Test Item Value Reference Range Interpretation Comments Platelet (test code = Platelet) 136 133-450 [facility] HospitalHnolccfOQAKCMFIZP8260-20-61 13:17:00 Test Item Value Reference Range Interpretation Comments MPV (test code = MPV) 8.7 7.4-10.4 [facility]2023-02-22 13:17:00 Test Item Value Reference Range Interpretation Comments Glucose Lvl (test code = Glucose Lvl) 65 70-99 [facility]2023-02-22 13:17:00 Test Item Value Reference Range Interpretation Comments BUN (test code = BUN) 39 7-22 [facility]2023-02-22 13:17:00 Test Item Value Reference Range Interpretation Comments Creatinine Lvl (test code = Creatinine 2.03 0.50-1.40 Lvl) [place] 457353-02-22 13:17:00 Test Item Value Reference Range Interpretation Comments Sodium Lvl (test code = Sodium Lvl) 139 135-145 [place] 457353-02-22 13:17:00 Test Item Value Reference Range Interpretation Comments Potassium Lvl (test code = Potassium 4.7 3.5-5.1 Lvl) [place] 457353-02-22 13:17:00 Test Item Value Reference Range Interpretation Comments Chloride Lvl (test code = Chloride Lvl) 107 95-109 [place] 457353-02-22 13:17:00 Test Item Value Reference Range Interpretation Comments CO2 (test code = CO2) 26 24-32 [place] 457353-02-22 13:17:00 Test Item Value Reference Range Interpretation Comments Calcium Lvl (test code = Calcium Lvl) 8.1 8.5-10.5 [place] 457353-02-22 13:17:00 Test Item Value Reference Range Interpretation Comments AGAP (test code = AGAP) 10.7 10.0-20.0 [place] 457353-02-22 13:17:00 Test Item Value Reference Range Interpretation Comments eGFR (test code = eGFR) 24 [place] 457353-02-22 13:17:00 Test Item Value Reference Range Interpretation Comments Magnesium Lvl (test code = Magnesium 2.7 1.8-2.4 Lvl) [place] 457353-02-22 13:17:00 Test Item Value Reference Range Interpretation Comments Phosphorus (test code = Phosphorus) 3.9 2.5-4.5 [place] 922233-02-22 13:17:00 Test Item Value Reference Range Interpretation Comments Glucose Lvl (test code = Glucose Lvl) 65 70-99 [place] [address]-02-22 13:17:00 Test Item Value Reference Range Interpretation Comments BUN (test code = BUN) 39 7-22 [place] [address]-02-22 13:17:00 Test Item Value Reference Range Interpretation Comments Creatinine Lvl (test code = Creatinine 2.03 0.50-1.40 Lvl) [place] 922233-02-22 13:17:00 Test Item Value Reference Range Interpretation Comments Sodium Lvl (test code = Sodium Lvl) 139 135-145 [place] 922233-02-22 13:17:00 Test Item Value Reference Range Interpretation Comments Potassium Lvl (test code = Potassium 4.7 3.5-5.1 Lvl) [facility] TexasVhbaaeeZZMXJWIHH5727-33-31 13:17:00 Test Item Value Reference Range Interpretation Comments Chloride Lvl (test code = Chloride Lvl) 107 95-109 [place] 922233-02-22 13:17:00 Test Item Value Reference Range Interpretation Comments CO2 (test code = CO2) 26 24-32 [place] 922233-02-22 13:17:00 Test Item Value Reference Range Interpretation Comments Calcium Lvl (test code = Calcium Lvl) 8.1 8.5-10.5 [place] 922233-02-22 13:17:00 Test Item Value Reference Range Interpretation Comments AGAP (test code = AGAP) 10.7 10.0-20.0 [place] 922233-02-22 13:17:00 Test Item Value Reference Range Interpretation Comments eGFR (test code = eGFR) 24 [facility] TexasUkcnleaFYKATUJPV8106-88-12 13:17:00 Test Item Value Reference Range Interpretation Comments Ca Ion WB (test code = Ca Ion WB) 1.06 1.05-1.25 [place] 922233-02-22 13:17:00 Test Item Value Reference Range Interpretation Comments Ca Ion at pH 7.4 WB (test code = Ca Ion 1.03 1.05-1.25 at pH 7.4 WB) [facility] TexasRxqrzbaPPIYEBNPT0695-71-08 13:17:00 Test Item Value Reference Range Interpretation Comments Magnesium Lvl (test code = Magnesium 2.7 1.8-2.4 Lvl) [facility] TexasVfsybpqJYHYPVFAE6709-41-05 13:17:00 Test Item Value Reference Range Interpretation Comments Phosphorus (test code = Phosphorus) 3.9 2.5-4.5 [place] 963423-02-22 13:17:00 Test Item Value Reference Range Interpretation Comments Segs (test code = Segs) 54.4 45.0-75.0 [place] 963423-02-22 13:17:00 Test Item Value Reference Range Interpretation Comments Lymphocytes (test code = Lymphocytes) 29.3 20.0-40.0 [place] [address]-02-22 13:17:00 Test Item Value Reference Range Interpretation Comments Monocytes (test code = Monocytes) 10.5 2.0-12.0 [place] [address]-02-22 13:17:00 Test Item Value Reference Range Interpretation Comments Eosinophils (test code = 5.0 See_Comment [A utomated message] The Eosinophils) system which ge nerated this result tra nsmitted reference range : <=4.0. The reference r christiano was not used to int erpret this result as normal/abnormal . [place] 963423-02-22 13:17:00 Test Item Value Reference Range Interpretation Comments Basophils (test code = 0.8 See_Comment [Aut omated message] The Basophils) system which ge nerated this result tra nsmitted reference range : <=1.0. The reference r christiano was not used to int erpret this result as normal/abnormal . [place] 963423-02-22 13:17:00 Test Item Value Reference Range Interpretation Comments Neutrophils # (test code = Neutrophils 4.1 1.5-8.1 #) [place] [address]-02-22 13:17:00 Test Item Value Reference Range Interpretation Comments Lymphocytes # (test code = Lymphocytes 2.2 1.0-5.5 #) [place] [address]-02-22 13:17:00 Test Item Value Reference Range Interpretation Comments Monocytes # (test code 0.8 See_Comment [Aut omated message] The = Monocytes #) system which generated this result tra nsmitted reference range : <=0.8. The reference r christiano was not used to int erpret this result as normal/abnormal . [place] [address]-02-22 13:17:00 Test Item Value Reference Range Interpretation Comments Eosinophils # (test code 0.4 See_Comment [A utomated message] The = Eosinophils #) system whic h generated this result tra nsmitted reference range : <=0.5. The reference r christiano was not used to int erpret this result as normal/abnormal . [place] 963423-02-22 13:17:00 Test Item Value Reference Range Interpretation Comments Basophils # (test code 0.1 See_Comment [Aut omated message] The = Basophils #) system which generated this result tra nsmitted reference range : <=0.2. The reference r christiano was not used to int erpret this result as normal/abnormal . [place] 963423-02-22 13:17:00 Test Item Value Reference Range Interpretation Comments WBC (test code = WBC) 7.5 3.7-10.4 [place] 963423-02-22 13:17:00 Test Item Value Reference Range Interpretation Comments RBC (test code = RBC) 3.30 4.20-5.40 [place] 963423-02-22 13:17:00 Test Item Value Reference Range Interpretation Comments Hgb (test code = Hgb) 9.9 12.0-16.0 [place] 963423-02-22 13:17:00 Test Item Value Reference Range Interpretation Comments Hct (test code = Hct) 30.3 36.0-48.0 [place] 963423-02-22 13:17:00 Test Item Value Reference Range Interpretation Comments MCV (test code = MCV) 91.8 80.0-98.0 [place] 963423-02-22 13:17:00 Test Item Value Reference Range Interpretation Comments MCH (test code = MCH) 30.0 pg 27.0-31.0 [facility] HospitalRjfuveiHSALIZEFMD2691-32-14 13:17:00 Test Item Value Reference Range Interpretation Comments MCHC (test code = MCHC) 32.7 32.0-36.0 [facility] HospitalBoldzlgISTWOIADEV8444-54-58 13:17:00 Test Item Value Reference Range Interpretation Comments RDW (test code = RDW) 14.4 11.5-14.5 [place] 963423-02-22 13:17:00 Test Item Value Reference Range Interpretation Comments Platelet (test code = Platelet) 136 133-450 [facility] HospitalScjwruuTBHFKDNEZM9071-20-95 13:17:00 Test Item Value Reference Range Interpretation Comments MPV (test code = MPV) 8.7 7.4-10.4 [place] 963423-02-22 13:17:00 Test Item Value Reference Range Interpretation Comments Segs (test code = Segs) 54.4 45.0-75.0 [place] 963423-02-22 13:17:00 Test Item Value Reference Range Interpretation Comments Lymphocytes (test code = Lymphocytes) 29.3 20.0-40.0 [place] 963423-02-22 13:17:00 Test Item Value Reference Range Interpretation Comments Monocytes (test code = Monocytes) 10.5 2.0-12.0 [place] 963423-02-22 13:17:00 Test Item Value Reference Range Interpretation Comments Eosinophils (test code = 5.0 See_Comment [A utomated message] The Eosinophils) system which ge nerated this result tra nsmitted reference range : <=4.0. The reference r christiano was not used to int erpret this result as normal/abnormal . [facility] HospitalNpjfjndSFMBKHTZFT4058-66-38 13:17:00 Test Item Value Reference Range Interpretation Comments Basophils (test code = 0.8 See_Comment [Aut omated message] The Basophils) system which ge nerated this result tra nsmitted reference range : <=1.0. The reference r christiano was not used to int erpret this result as normal/abnormal . [place] 963423-02-22 13:17:00 Test Item Value Reference Range Interpretation Comments Neutrophils # (test code = Neutrophils 4.1 1.5-8.1 #) [facility] HospitalEjdikzuDSTERZLLBH2626-33-69 13:17:00 Test Item Value Reference Range Interpretation Comments Lymphocytes # (test code = Lymphocytes 2.2 1.0-5.5 #) [place] 963423-02-22 13:17:00 Test Item Value Reference Range Interpretation Comments Monocytes # (test code 0.8 See_Comment [Aut omated message] The = Monocytes #) system which generated this result tra nsmitted reference range : <=0.8. The reference r christiano was not used to int erpret this result as normal/abnormal . [facility] HospitalMdchqmdHWWLPVUTRF4374-97-41 13:17:00 Test Item Value Reference Range Interpretation Comments Eosinophils # (test code 0.4 See_Comment [A utomated message] The = Eosinophils #) system whic h generated this result tra nsmitted reference range : <=0.5. The reference r christiano was not used to int erpret this result as normal/abnormal . [facility] HospitalMaiyxbyJPWOIMCYQJ6164-06-90 13:17:00 Test Item Value Reference Range Interpretation Comments Basophils # (test code 0.1 See_Comment [Aut omated message] The = Basophils #) system which generated this result tra nsmitted reference range : <=0.2. The reference r christiano was not used to int erpret this result as normal/abnormal . [facility] HospitalBfljoyaSQXQFMLRRM0948-51-88 13:17:00 Test Item Value Reference Range Interpretation Comments WBC (test code = WBC) 7.5 3.7-10.4 [facility] HospitalFyxvcceHAGOQRPKWU5044-83-03 13:17:00 Test Item Value Reference Range Interpretation Comments RBC (test code = RBC) 3.30 4.20-5.40 [facility]FlflyjiAZKADXYOSY8788-75-59 13:17:00 Test Item Value Reference Range Interpretation Comments Hgb (test code = Hgb) 9.9 12.0-16.0 [facility] HospitalEmarapkAGFORKCCTM7632-45-88 13:17:00 Test Item Value Reference Range Interpretation Comments Hct (test code = Hct) 30.3 36.0-48.0 [facility] HospitalBaohesgMIGMSCLBNE9397-95-59 13:17:00 Test Item Value Reference Range Interpretation Comments MCV (test code = MCV) 91.8 80.0-98.0 [facility] HospitalKudqresOTJAYPWDCH9448-77-26 13:17:00 Test Item Value Reference Range Interpretation Comments MCH (test code = MCH) 30.0 pg 27.0-31.0 [facility] HospitalBudplzlZHMGZEDGFX1290-93-77 13:17:00 Test Item Value Reference Range Interpretation Comments MCHC (test code = MCHC) 32.7 32.0-36.0 [facility] HospitalWprqfyqGSVSGOYEDS0986-57-18 13:17:00 Test Item Value Reference Range Interpretation Comments RDW (test code = RDW) 14.4 11.5-14.5 [facility] HospitalAbqhwdhQVGBTCKZVI9432-29-92 13:17:00 Test Item Value Reference Range Interpretation Comments Platelet (test code = Platelet) 136 133-450 [facility] HospitalPudovhsHPBUBTGEYC4864-83-50 13:17:00 Test Item Value Reference Range Interpretation Comments MPV (test code = MPV) 8.7 7.4-10.4 [facility] CenterPARATHYROID HEQJHMJ2280-17-23 13:17:00 Test Item Value Reference Range Interpretation Comments Ca Ion WB (test code = Ca Ion WB) 1.06 1.05-1.25 [facility] CenterPARATHYROID NYMMPUG9879-30-86 13:17:00 Test Item Value Reference Range Interpretation Comments Ca Ion at pH 7.4 WB (test code = Ca Ion 1.03 1.05-1.25 at pH 7.4 WB) [place] 457353-02-22 13:17:00 Test Item Value Reference Range Interpretation Comments Glucose Lvl (test code = Glucose Lvl) 65 70-99 [place] 457353-02-22 13:17:00 Test Item Value Reference Range Interpretation Comments BUN (test code = BUN) 39 7-22 [place] 457353-02-22 13:17:00 Test Item Value Reference Range Interpretation Comments Creatinine Lvl (test code = Creatinine 2.03 0.50-1.40 Lvl) [facility]2023-02-22 13:17:00 Test Item Value Reference Range Interpretation Comments Sodium Lvl (test code = Sodium Lvl) 139 135-145 [facility]2023-02-22 13:17:00 Test Item Value Reference Range Interpretation Comments Potassium Lvl (test code = Potassium 4.7 3.5-5.1 Lvl) [facility]2023-02-22 13:17:00 Test Item Value Reference Range Interpretation Comments Chloride Lvl (test code = Chloride Lvl) 107 95-109 [facility]2023-02-22 13:17:00 Test Item Value Reference Range Interpretation Comments CO2 (test code = CO2) 26 24-32 [facility]2023-02-22 13:17:00 Test Item Value Reference Range Interpretation Comments Calcium Lvl (test code = Calcium Lvl) 8.1 8.5-10.5 [place] 457353-02-22 13:17:00 Test Item Value Reference Range Interpretation Comments AGAP (test code = AGAP) 10.7 10.0-20.0 [place] 457353-02-22 13:17:00 Test Item Value Reference Range Interpretation Comments eGFR (test code = eGFR) 24 [place] 457353-02-22 13:17:00 Test Item Value Reference Range Interpretation Comments Magnesium Lvl (test code = Magnesium 2.7 1.8-2.4 Lvl) [place] 457353-02-22 13:17:00 Test Item Value Reference Range Interpretation Comments Phosphorus (test code = Phosphorus) 3.9 2.5-4.5 [facility] TexasIrbjyvxDLDLGDJXE1375-26-34 13:17:00 Test Item Value Reference Range Interpretation Comments Glucose Lvl (test code = Glucose Lvl) 65 70-99 [place] 922233-02-22 13:17:00 Test Item Value Reference Range Interpretation Comments BUN (test code = BUN) 39 7-22 [facility] TexasCxusdpoKPLVHJSEJ5173-51-89 13:17:00 Test Item Value Reference Range Interpretation Comments Creatinine Lvl (test code = Creatinine 2.03 0.50-1.40 Lvl) [facility] TexasWfrcvibFBNSGHLFL6450-64-70 13:17:00 Test Item Value Reference Range Interpretation Comments Sodium Lvl (test code = Sodium Lvl) 139 135-145 [facility] TexasCpiynbqZDMNRZWBW2948-67-92 13:17:00 Test Item Value Reference Range Interpretation Comments Potassium Lvl (test code = Potassium 4.7 3.5-5.1 Lvl) [facility] TexasMcqgvikIPPLVVWIO2523-64-17 13:17:00 Test Item Value Reference Range Interpretation Comments Chloride Lvl (test code = Chloride Lvl) 107 95-109 [facility] TexasHwsvqosINKMVHUSH8485-35-16 13:17:00 Test Item Value Reference Range Interpretation Comments CO2 (test code = CO2) 26 24-32 [facility] TexasUaqxygwJYUIEXDRN0932-31-86 13:17:00 Test Item Value Reference Range Interpretation Comments Calcium Lvl (test code = Calcium Lvl) 8.1 8.5-10.5 [facility] TexasMuhvipcPZZWUZIMI7151-13-99 13:17:00 Test Item Value Reference Range Interpretation Comments AGAP (test code = AGAP) 10.7 10.0-20.0 [facility] TexasCnpezgfIMMXCDLYQ8018-84-36 13:17:00 Test Item Value Reference Range Interpretation Comments eGFR (test code = eGFR) 24 [facility] TexasBgxrffnUHIWMJSNU6853-10-56 13:17:00 Test Item Value Reference Range Interpretation Comments Ca Ion WB (test code = Ca Ion WB) 1.06 1.05-1.25 [place] 922233-02-22 13:17:00 Test Item Value Reference Range Interpretation Comments Ca Ion at pH 7.4 WB (test code = Ca Ion 1.03 1.05-1.25 at pH 7.4 WB) [facility] TexasBhnlficTKTYPTKJE0318-47-99 13:17:00 Test Item Value Reference Range Interpretation Comments Magnesium Lvl (test code = Magnesium 2.7 1.8-2.4 Lvl) [place] 922233-02-22 13:17:00 Test Item Value Reference Range Interpretation Comments Phosphorus (test code = Phosphorus) 3.9 2.5-4.5 [place] 963423-02-22 13:17:00 Test Item Value Reference Range Interpretation Comments Segs (test code = Segs) 54.4 45.0-75.0 [place] 963423-02-22 13:17:00 Test Item Value Reference Range Interpretation Comments Lymphocytes (test code = Lymphocytes) 29.3 20.0-40.0 [place] [address]-02-22 13:17:00 Test Item Value Reference Range Interpretation Comments Monocytes (test code = Monocytes) 10.5 2.0-12.0 [place] 963423-02-22 13:17:00 Test Item Value Reference Range Interpretation Comments Eosinophils (test code = 5.0 See_Comment [A utomated message] The Eosinophils) system which ge nerated this result tra nsmitted reference range : <=4.0. The reference r christiano was not used to int erpret this result as normal/abnormal . [place] 963423-02-22 13:17:00 Test Item Value Reference Range Interpretation Comments Basophils (test code = 0.8 See_Comment [Aut omated message] The Basophils) system which ge nerated this result tra nsmitted reference range : <=1.0. The reference r christiano was not used to int erpret this result as normal/abnormal . [place] 963423-02-22 13:17:00 Test Item Value Reference Range Interpretation Comments Neutrophils # (test code = Neutrophils 4.1 1.5-8.1 #) [place] 963423-02-22 13:17:00 Test Item Value Reference Range Interpretation Comments Lymphocytes # (test code = Lymphocytes 2.2 1.0-5.5 #) [place] 963423-02-22 13:17:00 Test Item Value Reference Range Interpretation Comments Monocytes # (test code 0.8 See_Comment [Aut omated message] The = Monocytes #) system which generated this result tra nsmitted reference range : <=0.8. The reference r christiano was not used to int erpret this result as normal/abnormal . [facility]pd[facility]ueLDFICEQTAM5460[facility]99-[facility] 13:17:00 Test Item Value Reference Range Interpretation Comments Eosinophils # (test code 0.4 See_Comment [A utomated message] The = Eosinophils #) system whic h generated this result tra nsmitted reference range : <=0.5. The reference r christiano was not used to int erpret this result as normal/abnormal . [facility] CenterNpolcgvUCGHLMFHSC7713-50-46 13:17:00 Test Item Value Reference Range Interpretation Comments Basophils # (test code 0.1 See_Comment [Aut omated message] The = Basophils #) system which generated this result tra nsmitted reference range : <=0.2. The reference r christiano was not used to int erpret this result as normal/abnormal . [facility] CenterMsdenaxQTDNNDADCV7640-40-94 13:17:00 Test Item Value Reference Range Interpretation Comments WBC (test code = WBC) 7.5 3.7-10.4 [facility]KkbaitqEKJPTQOMVF5288-83-82 13:17:00 Test Item Value Reference Range Interpretation Comments RBC (test code = RBC) 3.30 4.20-5.40 [facility] HospitalYwklbquOUVWXAEBZM0618-57-80 13:17:00 Test Item Value Reference Range Interpretation Comments Hgb (test code = Hgb) 9.9 12.0-16.0 [facility] CenterYusuoobBCRGPBKPAJ1951-57-40 13:17:00 Test Item Value Reference Range Interpretation Comments Hct (test code = Hct) 30.3 36.0-48.0 [facility] CenterGrapvflSSUIAVDBOE2369-62-31 13:17:00 Test Item Value Reference Range Interpretation Comments MCV (test code = MCV) 91.8 80.0-98.0 [facility] CenterZueeoavUAJPOEAEZF3166-03-98 13:17:00 Test Item Value Reference Range Interpretation Comments MCH (test code = MCH) 30.0 pg 27.0-31.0 [facility] CenterSthcxmcZUGUDVSCZL8719-50-89 13:17:00 Test Item Value Reference Range Interpretation Comments MCHC (test code = MCHC) 32.7 32.0-36.0 [place] [address]-02-22 13:17:00 Test Item Value Reference Range Interpretation Comments RDW (test code = RDW) 14.4 11.5-14.5 [place] 963423-02-22 13:17:00 Test Item Value Reference Range Interpretation Comments Platelet (test code = Platelet) 136 133-450 [place] 963423-02-22 13:17:00 Test Item Value Reference Range Interpretation Comments MPV (test code = MPV) 8.7 7.4-10.4 [place] 963423-02-22 13:17:00 Test Item Value Reference Range Interpretation Comments Segs (test code = Segs) 54.4 45.0-75.0 [place] [address]-02-22 13:17:00 Test Item Value Reference Range Interpretation Comments Lymphocytes (test code = Lymphocytes) 29.3 20.0-40.0 [place] 963423-02-22 13:17:00 Test Item Value Reference Range Interpretation Comments Monocytes (test code = Monocytes) 10.5 2.0-12.0 [place] 963423-02-22 13:17:00 Test Item Value Reference Range Interpretation Comments Eosinophils (test code = 5.0 See_Comment [A utomated message] The Eosinophils) system which ge nerated this result tra nsmitted reference range : <=4.0. The reference r christiano was not used to int erpret this result as normal/abnormal . [place] 963423-02-22 13:17:00 Test Item Value Reference Range Interpretation Comments Basophils (test code = 0.8 See_Comment [Aut omated message] The Basophils) system which ge nerated this result tra nsmitted reference range : <=1.0. The reference r christiano was not used to int erpret this result as normal/abnormal . [place] 963423-02-22 13:17:00 Test Item Value Reference Range Interpretation Comments Neutrophils # (test code = Neutrophils 4.1 1.5-8.1 #) [place] [address]-02-22 13:17:00 Test Item Value Reference Range Interpretation Comments Lymphocytes # (test code = Lymphocytes 2.2 1.0-5.5 #) [place] 963423-02-22 13:17:00 Test Item Value Reference Range Interpretation Comments Monocytes # (test code 0.8 See_Comment [Aut omated message] The = Monocytes #) system which generated this result tra nsmitted reference range : <=0.8. The reference r christiano was not used to int erpret this result as normal/abnormal . [facility] HospitalFwigosfYMWDMLQHDR8634-66-66 13:17:00 Test Item Value Reference Range Interpretation Comments Eosinophils # (test code 0.4 See_Comment [A utomated message] The = Eosinophils #) system whic h generated this result tra nsmitted reference range : <=0.5. The reference r christiano was not used to int erpret this result as normal/abnormal . [facility] HospitalEmtcpinQQTYTNJPXC1650-03-08 13:17:00 Test Item Value Reference Range Interpretation Comments Basophils # (test code 0.1 See_Comment [Aut omated message] The = Basophils #) system which generated this result tra nsmitted reference range : <=0.2. The reference r christiano was not used to int erpret this result as normal/abnormal . [facility] HospitalOcvjgwsJEYBQYUAXT8963-79-81 13:17:00 Test Item Value Reference Range Interpretation Comments WBC (test code = WBC) 7.5 3.7-10.4 [place] 963423-02-22 13:17:00 Test Item Value Reference Range Interpretation Comments RBC (test code = RBC) 3.30 4.20-5.40 [place] 963423-02-22 13:17:00 Test Item Value Reference Range Interpretation Comments Hgb (test code = Hgb) 9.9 12.0-16.0 [place] 963423-02-22 13:17:00 Test Item Value Reference Range Interpretation Comments Hct (test code = Hct) 30.3 36.0-48.0 [place] 963423-02-22 13:17:00 Test Item Value Reference Range Interpretation Comments MCV (test code = MCV) 91.8 80.0-98.0 [place] 963423-02-22 13:17:00 Test Item Value Reference Range Interpretation Comments MCH (test code = MCH) 30.0 pg 27.0-31.0 [place] 963423-02-22 13:17:00 Test Item Value Reference Range Interpretation Comments MCHC (test code = MCHC) 32.7 32.0-36.0 [place] 963423-02-22 13:17:00 Test Item Value Reference Range Interpretation Comments RDW (test code = RDW) 14.4 11.5-14.5 [place] 963423-02-22 13:17:00 Test Item Value Reference Range Interpretation Comments Platelet (test code = Platelet) 136 133-450 [place] 963423-02-22 13:17:00 Test Item Value Reference Range Interpretation Comments MPV (test code = MPV) 8.7 7.4-10.4 [facility]2023-02-22 13:17:00 Test Item Value Reference Range Interpretation Comments Ca Ion WB (test code = Ca Ion WB) 1.06 1.05-1.25 [place] 529873-02-22 13:17:00 Test Item Value Reference Range Interpretation Comments Ca Ion at pH 7.4 WB (test code = Ca Ion 1.03 1.05-1.25 at pH 7.4 WB) [facility]2023-02-22 13:17:00 Test Item Value Reference Range Interpretation Comments Glucose Lvl (test code = Glucose Lvl) 65 70-99 [place] 457353-02-22 13:17:00 Test Item Value Reference Range Interpretation Comments BUN (test code = BUN) 39 7-22 [place] 457353-02-22 13:17:00 Test Item Value Reference Range Interpretation Comments Creatinine Lvl (test code = Creatinine 2.03 0.50-1.40 Lvl) [place] 457353-02-22 13:17:00 Test Item Value Reference Range Interpretation Comments Sodium Lvl (test code = Sodium Lvl) 139 135-145 [place] 457353-02-22 13:17:00 Test Item Value Reference Range Interpretation Comments Potassium Lvl (test code = Potassium 4.7 3.5-5.1 Lvl) [place] 457353-02-22 13:17:00 Test Item Value Reference Range Interpretation Comments Chloride Lvl (test code = Chloride Lvl) 107 95-109 [place] 457353-02-22 13:17:00 Test Item Value Reference Range Interpretation Comments CO2 (test code = CO2) 26 24-32 [place] 457353-02-22 13:17:00 Test Item Value Reference Range Interpretation Comments Calcium Lvl (test code = Calcium Lvl) 8.1 8.5-10.5 [place] 457353-02-22 13:17:00 Test Item Value Reference Range Interpretation Comments AGAP (test code = AGAP) 10.7 10.0-20.0 [place] 457353-02-22 13:17:00 Test Item Value Reference Range Interpretation Comments eGFR (test code = eGFR) 24 [place] 457353-02-22 13:17:00 Test Item Value Reference Range Interpretation Comments Magnesium Lvl (test code = Magnesium 2.7 1.8-2.4 Lvl) [facility]2023-02-22 13:17:00 Test Item Value Reference Range Interpretation Comments Phosphorus (test code = Phosphorus) 3.9 2.5-4.5 [place] 922233-02-22 13:17:00 Test Item Value Reference Range Interpretation Comments Glucose Lvl (test code = Glucose Lvl) 65 70-99 [place] 922233-02-22 13:17:00 Test Item Value Reference Range Interpretation Comments BUN (test code = BUN) 39 7-22 [facility]LteipqsQHMWHXDWB0990-31-70 13:17:00 Test Item Value Reference Range Interpretation Comments Creatinine Lvl (test code = Creatinine 2.03 0.50-1.40 Lvl) [facility]KrikzxuITERWFGDF4426-09-52 13:17:00 Test Item Value Reference Range Interpretation Comments Sodium Lvl (test code = Sodium Lvl) 139 135-145 [place] 922233-02-22 13:17:00 Test Item Value Reference Range Interpretation Comments Potassium Lvl (test code = Potassium 4.7 3.5-5.1 Lvl) [place] 922233-02-22 13:17:00 Test Item Value Reference Range Interpretation Comments Chloride Lvl (test code = Chloride Lvl) 107 95-109 [place] 922233-02-22 13:17:00 Test Item Value Reference Range Interpretation Comments CO2 (test code = CO2) - [place] 922233-02-22 13:17:00 Test Item Value Reference Range Interpretation Comments Calcium Lvl (test code = Calcium Lvl) 8.1 8.5-10.5 [facility] TexasAhikkdxEWJFRXKUR4241-83-47 13:17:00 Test Item Value Reference Range Interpretation Comments AGAP (test code = AGAP) 10.7 10.0-20.0 [facility] TexasZbihylrUIKPBCTFD8602-63-19 13:17:00 Test Item Value Reference Range Interpretation Comments eGFR (test code = eGFR) 24 [facility] TexasLhcrgueGCPQXHOXM7320-15-35 13:17:00 Test Item Value Reference Range Interpretation Comments Ca Ion WB (test code = Ca Ion WB) 1.06 1.05-1.25 [facility] TexasMxmocwuQVYEBBRRL0965-97-88 13:17:00 Test Item Value Reference Range Interpretation Comments Ca Ion at pH 7.4 WB (test code = Ca Ion 1.03 1.05-1.25 at pH 7.4 WB) [facility] TexasDgzhoybKTOVIJKAQ7482-95-19 13:17:00 Test Item Value Reference Range Interpretation Comments Magnesium Lvl (test code = Magnesium 2.7 1.8-2.4 Lvl) [facility] TexasIughrssHYJGDMBKL8587-54-75 13:17:00 Test Item Value Reference Range Interpretation Comments Phosphorus (test code = Phosphorus) 3.9 2.5-4.5 [facility] HospitalItbrfifTIXNIJTDYQ5121-30-80 13:17:00 Test Item Value Reference Range Interpretation Comments Segs (test code = Segs) 54.4 45.0-75.0 [facility] HospitalNyhjzppWBCTJMLBRY4893-81-45 13:17:00 Test Item Value Reference Range Interpretation Comments Lymphocytes (test code = Lymphocytes) 29.3 20.0-40.0 [place] 963423-02-22 13:17:00 Test Item Value Reference Range Interpretation Comments Monocytes (test code = Monocytes) 10.5 2.0-12.0 [place] 963423-02-22 13:17:00 Test Item Value Reference Range Interpretation Comments Eosinophils (test code = 5.0 See_Comment [A utomated message] The Eosinophils) system which ge nerated this result tra nsmitted reference range : <=4.0. The reference r christiano was not used to int erpret this result as normal/abnormal . [facility] HospitalGcshhazBJSETSZZII0977-39-19 13:17:00 Test Item Value Reference Range Interpretation Comments Basophils (test code = 0.8 See_Comment [Aut omated message] The Basophils) system which ge nerated this result tra nsmitted reference range : <=1.0. The reference r christiano was not used to int erpret this result as normal/abnormal . [place] 963423-02-22 13:17:00 Test Item Value Reference Range Interpretation Comments Neutrophils # (test code = Neutrophils 4.1 1.5-8.1 #) [place] 963423-02-22 13:17:00 Test Item Value Reference Range Interpretation Comments Lymphocytes # (test code = Lymphocytes 2.2 1.0-5.5 #) [place] 963423-02-22 13:17:00 Test Item Value Reference Range Interpretation Comments Monocytes # (test code 0.8 See_Comment [Aut omated message] The = Monocytes #) system which generated this result tra nsmitted reference range : <=0.8. The reference r christiano was not used to int erpret this result as normal/abnormal . [place] 963423-02-22 13:17:00 Test Item Value Reference Range Interpretation Comments Eosinophils # (test code 0.4 See_Comment [A utomated message] The = Eosinophils #) system whic h generated this result tra nsmitted reference range : <=0.5. The reference r christiano was not used to int erpret this result as normal/abnormal . [place] 963423-02-22 13:17:00 Test Item Value Reference Range Interpretation Comments Basophils # (test code 0.1 See_Comment [Aut omated message] The = Basophils #) system which generated this result tra nsmitted reference range : <=0.2. The reference r christiano was not used to int erpret this result as normal/abnormal . [place] 963423-02-22 13:17:00 Test Item Value Reference Range Interpretation Comments WBC (test code = WBC) 7.5 3.7-10.4 [place] 963423-02-22 13:17:00 Test Item Value Reference Range Interpretation Comments RBC (test code = RBC) 3.30 4.20-5.40 [place] [address]-02-22 13:17:00 Test Item Value Reference Range Interpretation Comments Hgb (test code = Hgb) 9.9 12.0-16.0 [facility] HospitalRcpvterXYTBKPDSMS8350-98-82 13:17:00 Test Item Value Reference Range Interpretation Comments Hct (test code = Hct) 30.3 36.0-48.0 [facility] HospitalVcsyvmoWXJGCPKMMU0484-07-05 13:17:00 Test Item Value Reference Range Interpretation Comments MCV (test code = MCV) 91.8 80.0-98.0 [facility] HospitalGhdojlvFVVEHJGJKY8474-91-28 13:17:00 Test Item Value Reference Range Interpretation Comments MCH (test code = MCH) 30.0 pg 27.0-31.0 [facility] HospitalUzdvxvoKARFXZOASH8989-99-58 13:17:00 Test Item Value Reference Range Interpretation Comments MCHC (test code = MCHC) 32.7 32.0-36.0 [facility] HospitalBtkysmnAGWHPKKKKT8264-77-80 13:17:00 Test Item Value Reference Range Interpretation Comments RDW (test code = RDW) 14.4 11.5-14.5 [facility] HospitalYjamedzYTRVRYBEXX3439-20-24 13:17:00 Test Item Value Reference Range Interpretation Comments Platelet (test code = Platelet) 136 133-450 [facility] HospitalPlcoyhhOVXOHBZCXS7203-28-29 13:17:00 Test Item Value Reference Range Interpretation Comments MPV (test code = MPV) 8.7 7.4-10.4 [facility] HospitalWiyiziyMMZGLFWGWI8377-18-71 13:17:00 Test Item Value Reference Range Interpretation Comments Segs (test code = Segs) 54.4 45.0-75.0 [facility] HospitalZdevyfbEVOJXXSEHD5170-93-81 13:17:00 Test Item Value Reference Range Interpretation Comments Lymphocytes (test code = Lymphocytes) 29.3 20.0-40.0 [place] 963423-02-22 13:17:00 Test Item Value Reference Range Interpretation Comments Monocytes (test code = Monocytes) 10.5 2.0-12.0 [place] [address]-02-22 13:17:00 Test Item Value Reference Range Interpretation Comments Eosinophils (test code = 5.0 See_Comment [A utomated message] The Eosinophils) system which ge nerated this result tra nsmitted reference range : <=4.0. The reference r christiano was not used to int erpret this result as normal/abnormal . [place] [address]-02-22 13:17:00 Test Item Value Reference Range Interpretation Comments Basophils (test code = 0.8 See_Comment [Aut omated message] The Basophils) system which ge nerated this result tra nsmitted reference range : <=1.0. The reference r christiano was not used to int erpret this result as normal/abnormal . [place] 963423-02-22 13:17:00 Test Item Value Reference Range Interpretation Comments Neutrophils # (test code = Neutrophils 4.1 1.5-8.1 #) [place] 963423-02-22 13:17:00 Test Item Value Reference Range Interpretation Comments Lymphocytes # (test code = Lymphocytes 2.2 1.0-5.5 #) [place] 963423-02-22 13:17:00 Test Item Value Reference Range Interpretation Comments Monocytes # (test code 0.8 See_Comment [Aut omated message] The = Monocytes #) system which generated this result tra nsmitted reference range : <=0.8. The reference r christiano was not used to int erpret this result as normal/abnormal . [facility] HospitalRqmedggMDYMBMRCWW1386-71-82 13:17:00 Test Item Value Reference Range Interpretation Comments Eosinophils # (test code 0.4 See_Comment [A utomated message] The = Eosinophils #) system whic h generated this result tra nsmitted reference range : <=0.5. The reference r christiano was not used to int erpret this result as normal/abnormal . [facility] HospitalAuylsddPPYGUYAKRA4231-30-18 13:17:00 Test Item Value Reference Range Interpretation Comments Basophils # (test code 0.1 See_Comment [Aut omated message] The = Basophils #) system which generated this result tra nsmitted reference range : <=0.2. The reference r christiano was not used to int erpret this result as normal/abnormal . [place] 963423-02-22 13:17:00 Test Item Value Reference Range Interpretation Comments WBC (test code = WBC) 7.5 3.7-10.4 [place] [address]-02-22 13:17:00 Test Item Value Reference Range Interpretation Comments RBC (test code = RBC) 3.30 4.20-5.40 [place] [address]-02-22 13:17:00 Test Item Value Reference Range Interpretation Comments Hgb (test code = Hgb) 9.9 12.0-16.0 [place] 963423-02-22 13:17:00 Test Item Value Reference Range Interpretation Comments Hct (test code = Hct) 30.3 36.0-48.0 [facility] HospitalSamrqauTOZSRJGHIW4774-54-28 13:17:00 Test Item Value Reference Range Interpretation Comments MCV (test code = MCV) 91.8 80.0-98.0 [facility] HospitalZvyrhcxSBPXCLUPTW6200-47-28 13:17:00 Test Item Value Reference Range Interpretation Comments MCH (test code = MCH) 30.0 pg 27.0-31.0 [facility] HospitalJgyzeouKTKYPJUJXH3465-79-79 13:17:00 Test Item Value Reference Range Interpretation Comments MCHC (test code = MCHC) 32.7 32.0-36.0 [facility] HospitalXrwybuxGEIKRCVCKS1549-17-05 13:17:00 Test Item Value Reference Range Interpretation Comments RDW (test code = RDW) 14.4 11.5-14.5 [facility] HospitalTylnhmqMCGUEABLRT0019-58-62 13:17:00 Test Item Value Reference Range Interpretation Comments Platelet (test code = Platelet) 136 133-450 [facility] HospitalMayyekhCWSFFFVMOZ4469-26-93 13:17:00 Test Item Value Reference Range Interpretation Comments MPV (test code = MPV) 8.7 7.4-10.4 [facility]2023-02-22 13:17:00 Test Item Value Reference Range Interpretation Comments Ca Ion WB (test code = Ca Ion WB) 1.06 1.05-1.25 [facility]2023-02-22 13:17:00 Test Item Value Reference Range Interpretation Comments Ca Ion at pH 7.4 WB (test code = Ca Ion 1.03 1.05-1.25 at pH 7.4 WB) [facility]2023-02-22 13:17:00 Test Item Value Reference Range Interpretation Comments Glucose Lvl (test code = Glucose Lvl) 65 70-99 [facility]2023-02-22 13:17:00 Test Item Value Reference Range Interpretation Comments BUN (test code = BUN) 39 7-22 [facility]2023-02-22 13:17:00 Test Item Value Reference Range Interpretation Comments Creatinine Lvl (test code = Creatinine 2.03 0.50-1.40 Lvl) [place] 457353-02-22 13:17:00 Test Item Value Reference Range Interpretation Comments Sodium Lvl (test code = Sodium Lvl) 139 135-145 [place] 457353-02-22 13:17:00 Test Item Value Reference Range Interpretation Comments Potassium Lvl (test code = Potassium 4.7 3.5-5.1 Lvl) [place] 457353-02-22 13:17:00 Test Item Value Reference Range Interpretation Comments Chloride Lvl (test code = Chloride Lvl) 107 95-109 [place] 457353-02-22 13:17:00 Test Item Value Reference Range Interpretation Comments CO2 (test code = CO2) 26 24-32 [place] 457353-02-22 13:17:00 Test Item Value Reference Range Interpretation Comments Calcium Lvl (test code = Calcium Lvl) 8.1 8.5-10.5 [place] 457353-02-22 13:17:00 Test Item Value Reference Range Interpretation Comments AGAP (test code = AGAP) 10.7 10.0-20.0 [place] 457353-02-22 13:17:00 Test Item Value Reference Range Interpretation Comments eGFR (test code = eGFR) 24 [place] 457353-02-22 13:17:00 Test Item Value Reference Range Interpretation Comments Magnesium Lvl (test code = Magnesium 2.7 1.8-2.4 Lvl) [facility]2023-02-22 13:17:00 Test Item Value Reference Range Interpretation Comments Phosphorus (test code = Phosphorus) 3.9 2.5-4.5 [place] 922233-02-22 13:17:00 Test Item Value Reference Range Interpretation Comments Glucose Lvl (test code = Glucose Lvl) 65 70-99 [place] 922233-02-22 13:17:00 Test Item Value Reference Range Interpretation Comments BUN (test code = BUN) 39 7-22 [place] 922233-02-22 13:17:00 Test Item Value Reference Range Interpretation Comments Creatinine Lvl (test code = Creatinine 2.03 0.50-1.40 Lvl) [facility]ZanvgxnNOHYHZBWJ3667-42-60 13:17:00 Test Item Value Reference Range Interpretation Comments Sodium Lvl (test code = Sodium Lvl) 139 135-145 [facility] TexasLggkvmnZPDYAQZLX7887-36-66 13:17:00 Test Item Value Reference Range Interpretation Comments Potassium Lvl (test code = Potassium 4.7 3.5-5.1 Lvl) [facility] TexasJjglegwQSCPFAPWY6435-08-82 13:17:00 Test Item Value Reference Range Interpretation Comments Chloride Lvl (test code = Chloride Lvl) 107 95-109 [facility] TexasMfozoxkVWKKECXMQ4826-69-93 13:17:00 Test Item Value Reference Range Interpretation Comments CO2 (test code = CO2) 26 24-32 [facility] TexasTikcrfbSAYNPBQYW0555-12-79 13:17:00 Test Item Value Reference Range Interpretation Comments Calcium Lvl (test code = Calcium Lvl) 8.1 8.5-10.5 [facility] TexasUnpzukhVOINJPXYW9710-64-27 13:17:00 Test Item Value Reference Range Interpretation Comments AGAP (test code = AGAP) 10.7 10.0-20.0 [facility] TexasMctemezWBJZSHIXY4525-30-14 13:17:00 Test Item Value Reference Range Interpretation Comments eGFR (test code = eGFR) 24 [facility] TexasZlrlyqqQBTCXBRIW9707-36-53 13:17:00 Test Item Value Reference Range Interpretation Comments Ca Ion WB (test code = Ca Ion WB) 1.06 1.05-1.25 [facility] TexasMprovhsWTVUOICEF4561-09-82 13:17:00 Test Item Value Reference Range Interpretation Comments Ca Ion at pH 7.4 WB (test code = Ca Ion 1.03 1.05-1.25 at pH 7.4 WB) [facility] TexasFzeqspdVRMYCAAZE5240-06-17 13:17:00 Test Item Value Reference Range Interpretation Comments Magnesium Lvl (test code = Magnesium 2.7 1.8-2.4 Lvl) [facility] TexasFbelgnmFTWXDLTDY3106-60-67 13:17:00 Test Item Value Reference Range Interpretation Comments Phosphorus (test code = Phosphorus) 3.9 2.5-4.5 [facility]EbsdtjjTCUBFOGYJZ9216-69-88 13:17:00 Test Item Value Reference Range Interpretation Comments Segs (test code = Segs) 54.4 45.0-75.0 [place] 963423-02-22 13:17:00 Test Item Value Reference Range Interpretation Comments Lymphocytes (test code = Lymphocytes) 29.3 20.0-40.0 [place] 963423-02-22 13:17:00 Test Item Value Reference Range Interpretation Comments Monocytes (test code = Monocytes) 10.5 2.0-12.0 [place] 963423-02-22 13:17:00 Test Item Value Reference Range Interpretation Comments Eosinophils (test code = 5.0 See_Comment [A utomated message] The Eosinophils) system which ge nerated this result tra nsmitted reference range : <=4.0. The reference r christiano was not used to int erpret this result as normal/abnormal . [place] 963423-02-22 13:17:00 Test Item Value Reference Range Interpretation Comments Basophils (test code = 0.8 See_Comment [Aut omated message] The Basophils) system which ge nerated this result tra nsmitted reference range : <=1.0. The reference r christiano was not used to int erpret this result as normal/abnormal . [place] 963423-02-22 13:17:00 Test Item Value Reference Range Interpretation Comments Neutrophils # (test code = Neutrophils 4.1 1.5-8.1 #) [place] 963423-02-22 13:17:00 Test Item Value Reference Range Interpretation Comments Lymphocytes # (test code = Lymphocytes 2.2 1.0-5.5 #) [place] 963423-02-22 13:17:00 Test Item Value Reference Range Interpretation Comments Monocytes # (test code 0.8 See_Comment [Aut omated message] The = Monocytes #) system which generated this result tra nsmitted reference range : <=0.8. The reference r christiano was not used to int erpret this result as normal/abnormal . [place] 963423-02-22 13:17:00 Test Item Value Reference Range Interpretation Comments Eosinophils # (test code 0.4 See_Comment [A utomated message] The = Eosinophils #) system whic h generated this result tra nsmitted reference range : <=0.5. The reference r christiano was not used to int erpret this result as normal/abnormal . [place] 963423-02-22 13:17:00 Test Item Value Reference Range Interpretation Comments Basophils # (test code 0.1 See_Comment [Aut omated message] The = Basophils #) system which generated this result tra nsmitted reference range : <=0.2. The reference r christiano was not used to int erpret this result as normal/abnormal . [facility]FX0748[facility] 13:17:00 Test Item Value Reference Range Interpretation Comments WBC (test code = WBC) 7.5 3.7-10.4 [facility]JmuswyjBAZUJBITMN4321-92-46 13:17:00 Test Item Value Reference Range Interpretation Comments RBC (test code = RBC) 3.30 4.20-5.40 [place] 963423-02-22 13:17:00 Test Item Value Reference Range Interpretation Comments Hgb (test code = Hgb) 9.9 12.0-16.0 [facility]KsgitffRXMKYDJNSZ4349-03-69 13:17:00 Test Item Value Reference Range Interpretation Comments Hct (test code = Hct) 30.3 36.0-48.0 [facility]NuazctlOQSGFADZJQ0913-30-68 13:17:00 Test Item Value Reference Range Interpretation Comments MCV (test code = MCV) 91.8 80.0-98.0 [facility] HospitalDybfwgoFNWMAPZYFU4162-64-95 13:17:00 Test Item Value Reference Range Interpretation Comments MCH (test code = MCH) 30.0 pg 27.0-31.0 [facility] HospitalLysbqlfIZVMWBNLVB3969-00-75 13:17:00 Test Item Value Reference Range Interpretation Comments MCHC (test code = MCHC) 32.7 32.0-36.0 [facility] HospitalJqsheveUNXYJWOUFD1817-61-43 13:17:00 Test Item Value Reference Range Interpretation Comments RDW (test code = RDW) 14.4 11.5-14.5 [place] 963423-02-22 13:17:00 Test Item Value Reference Range Interpretation Comments Platelet (test code = Platelet) 136 133-450 [facility] HospitalMmrazpoZSOGLGPRJX1882-16-47 13:17:00 Test Item Value Reference Range Interpretation Comments MPV (test code = MPV) 8.7 7.4-10.4 [facility] HospitalRimcoamPXQGFCVLQG5528-04-36 13:17:00 Test Item Value Reference Range Interpretation Comments Segs (test code = Segs) 54.4 45.0-75.0 [place] 963423-02-22 13:17:00 Test Item Value Reference Range Interpretation Comments Lymphocytes (test code = Lymphocytes) 29.3 20.0-40.0 [place] 963423-02-22 13:17:00 Test Item Value Reference Range Interpretation Comments Monocytes (test code = Monocytes) 10.5 2.0-12.0 [place] 963423-02-22 13:17:00 Test Item Value Reference Range Interpretation Comments Eosinophils (test code = 5.0 See_Comment [A utomated message] The Eosinophils) system which ge nerated this result tra nsmitted reference range : <=4.0. The reference r christiano was not used to int erpret this result as normal/abnormal . [place] 963423-02-22 13:17:00 Test Item Value Reference Range Interpretation Comments Basophils (test code = 0.8 See_Comment [Aut omated message] The Basophils) system which ge nerated this result tra nsmitted reference range : <=1.0. The reference r christiano was not used to int erpret this result as normal/abnormal . [facility] HospitalMabapwsJHSMRJVHDT1679-43-51 13:17:00 Test Item Value Reference Range Interpretation Comments Neutrophils # (test code = Neutrophils 4.1 1.5-8.1 #) [place] 963423-02-22 13:17:00 Test Item Value Reference Range Interpretation Comments Lymphocytes # (test code = Lymphocytes 2.2 1.0-5.5 #) [place] 963423-02-22 13:17:00 Test Item Value Reference Range Interpretation Comments Monocytes # (test code 0.8 See_Comment [Aut omated message] The = Monocytes #) system which generated this result tra nsmitted reference range : <=0.8. The reference r christiano was not used to int erpret this result as normal/abnormal . [place] 963423-02-22 13:17:00 Test Item Value Reference Range Interpretation Comments Eosinophils # (test code 0.4 See_Comment [A utomated message] The = Eosinophils #) system ic h generated this result tra nsmitted reference range : <=0.5. The reference r christiano was not used to int erpret this result as normal/abnormal . [facility]nzimyvZVJFVSGTXF4875[facility]77-77 13:17:00 Test Item Value Reference Range Interpretation Comments Basophils # (test code 0.1 See_Comment [Aut omated message] The = Basophils #) system which generated this result tra nsmitted reference range : <=0.2. The reference r christiano was not used to int erpret this result as normal/abnormal . [facility] HospitalJrcvtciRNFHIHKUUG1967-63-28 13:17:00 Test Item Value Reference Range Interpretation Comments WBC (test code = WBC) 7.5 3.7-10.4 [facility] HospitalIeeyjhgZFFTKOFKOM9144-92-33 13:17:00 Test Item Value Reference Range Interpretation Comments RBC (test code = RBC) 3.30 4.20-5.40 [facility] HospitalMxtqjupEKMUJUNHII9979-63-88 13:17:00 Test Item Value Reference Range Interpretation Comments Hgb (test code = Hgb) 9.9 12.0-16.0 [facility] HospitalCropdgqXMQPGKIQEB7311-05-73 13:17:00 Test Item Value Reference Range Interpretation Comments Hct (test code = Hct) 30.3 36.0-48.0 [facility] HospitalAvoucuaHJMDRSPEFO9176-79-78 13:17:00 Test Item Value Reference Range Interpretation Comments MCV (test code = MCV) 91.8 80.0-98.0 [facility] HospitalNmmioifGITDXTUTZH9408-14-78 13:17:00 Test Item Value Reference Range Interpretation Comments MCH (test code = MCH) 30.0 pg 27.0-31.0 [facility] HospitalUvyyeujJKSOTNBRNV9641-14-17 13:17:00 Test Item Value Reference Range Interpretation Comments MCHC (test code = MCHC) 32.7 32.0-36.0 [facility] HospitalGaacbnyKFKPIHKEQP4250-14-77 13:17:00 Test Item Value Reference Range Interpretation Comments RDW (test code = RDW) 14.4 11.5-14.5 [facility] HospitalNmyzbqxSALYMOJJWU6573-90-03 13:17:00 Test Item Value Reference Range Interpretation Comments Platelet (test code = Platelet) 136 133-450 [facility] HospitalZvyjcanJMGGQXAXEI2982-18-00 13:17:00 Test Item Value Reference Range Interpretation Comments MPV (test code = MPV) 8.7 7.4-10.4 [facility]PARATHY[facility]ID UIYGXVH6095-17-84 13:17:00 Test Item Value Reference Range Interpretation Comments Ca Ion WB (test code = Ca Ion WB) 1.06 1.05-1.25 [facility] CenterPARATHYROID QSDNGOR6650-60-50 13:17:00 Test Item Value Reference Range Interpretation Comments Ca Ion at pH 7.4 WB (test code = Ca Ion 1.03 1.05-1.25 at pH 7.4 WB) [facility]2023-02-22 13:17:00 Test Item Value Reference Range Interpretation Comments Glucose Lvl (test code = Glucose Lvl) 65 70-99 [place] 457353-02-22 13:17:00 Test Item Value Reference Range Interpretation Comments BUN (test code = BUN) 39 7-22 [place] 457353-02-22 13:17:00 Test Item Value Reference Range Interpretation Comments Creatinine Lvl (test code = Creatinine 2.03 0.50-1.40 Lvl) [place] 457353-02-22 13:17:00 Test Item Value Reference Range Interpretation Comments Sodium Lvl (test code = Sodium Lvl) 139 135-145 [place] 457353-02-22 13:17:00 Test Item Value Reference Range Interpretation Comments Potassium Lvl (test code = Potassium 4.7 3.5-5.1 Lvl) [place] 457353-02-22 13:17:00 Test Item Value Reference Range Interpretation Comments Chloride Lvl (test code = Chloride Lvl) 107 95-109 [facility]2023-02-22 13:17:00 Test Item Value Reference Range Interpretation Comments CO2 (test code = CO2) 26 24-32 [place] 457353-02-22 13:17:00 Test Item Value Reference Range Interpretation Comments Calcium Lvl (test code = Calcium Lvl) 8.1 8.5-10.5 [place] 457353-02-22 13:17:00 Test Item Value Reference Range Interpretation Comments AGAP (test code = AGAP) 10.7 10.0-20.0 [place] 457353-02-22 13:17:00 Test Item Value Reference Range Interpretation Comments eGFR (test code = eGFR) 24 [place] 457353-02-22 13:17:00 Test Item Value Reference Range Interpretation Comments Magnesium Lvl (test code = Magnesium 2.7 1.8-2.4 Lvl) [facility]2023-02-22 13:17:00 Test Item Value Reference Range Interpretation Comments Phosphorus (test code = Phosphorus) 3.9 2.5-4.5 [place] 922233-02-22 13:17:00 Test Item Value Reference Range Interpretation Comments Glucose Lvl (test code = Glucose Lvl) 65 70-99 [place] 922233-02-22 13:17:00 Test Item Value Reference Range Interpretation Comments BUN (test code = BUN) 39 7-22 [facility]OqullwcXJPGLXYKU8399-05-32 13:17:00 Test Item Value Reference Range Interpretation Comments Creatinine Lvl (test code = Creatinine 2.03 0.50-1.40 Lvl) [facility] TexasZfzikdxHTNJIZRVP6208-05-07 13:17:00 Test Item Value Reference Range Interpretation Comments Sodium Lvl (test code = Sodium Lvl) 139 135-145 [place] 922233-02-22 13:17:00 Test Item Value Reference Range Interpretation Comments Potassium Lvl (test code = Potassium 4.7 3.5-5.1 Lvl) [facility] TexasTbdzsmzEETRKOTEE2376-36-38 13:17:00 Test Item Value Reference Range Interpretation Comments Chloride Lvl (test code = Chloride Lvl) 107 95-109 [facility] TexasJjrpmdbJWXOFINLX2281-33-79 13:17:00 Test Item Value Reference Range Interpretation Comments CO2 (test code = CO2) 26 24-32 [place] 922233-02-22 13:17:00 Test Item Value Reference Range Interpretation Comments Calcium Lvl (test code = Calcium Lvl) 8.1 8.5-10.5 [place] 922233-02-22 13:17:00 Test Item Value Reference Range Interpretation Comments AGAP (test code = AGAP) 10.7 10.0-20.0 [place] 922233-02-22 13:17:00 Test Item Value Reference Range Interpretation Comments eGFR (test code = eGFR) 24 [facility] TexasFqwqafhQOZBAITPF2230-91-97 13:17:00 Test Item Value Reference Range Interpretation Comments Ca Ion WB (test code = Ca Ion WB) 1.06 1.05-1.25 [place] 922233-02-22 13:17:00 Test Item Value Reference Range Interpretation Comments Ca Ion at pH 7.4 WB (test code = Ca Ion 1.03 1.05-1.25 at pH 7.4 WB) [facility] TexasCtgpljpHVZLVHXKZ4178-76-85 13:17:00 Test Item Value Reference Range Interpretation Comments Magnesium Lvl (test code = Magnesium 2.7 1.8-2.4 Lvl) [place] 922233-02-22 13:17:00 Test Item Value Reference Range Interpretation Comments Phosphorus (test code = Phosphorus) 3.9 2.5-4.5 [place] 963423-02-22 13:17:00 Test Item Value Reference Range Interpretation Comments Segs (test code = Segs) 54.4 45.0-75.0 [place] 963423-02-22 13:17:00 Test Item Value Reference Range Interpretation Comments Lymphocytes (test code = Lymphocytes) 29.3 20.0-40.0 [place] 963423-02-22 13:17:00 Test Item Value Reference Range Interpretation Comments Monocytes (test code = Monocytes) 10.5 2.0-12.0 [facility]MmdyscdRQTWEZTQQX2853-42-57 13:17:00 Test Item Value Reference Range Interpretation Comments Eosinophils (test code = 5.0 See_Comment [A utomated message] The Eosinophils) system which nerated this result tra nsmitted reference range : <=4.0. The reference r christiano was not used to int erpret this result as normal/abnormal . [facility] HospitalPzhjajmGJFNWBEIBU8384-35-69 13:17:00 Test Item Value Reference Range Interpretation Comments Basophils (test code = 0.8 See_Comment [Aut omated message] The Basophils) system which ge nerated this result tra nsmitted reference range : <=1.0. The reference r christiano was not used to int erpret this result as normal/abnormal . [facility] HospitalBxmrxorQCYELQHHWJ3867-75-81 13:17:00 Test Item Value Reference Range Interpretation Comments Neutrophils # (test code = Neutrophils 4.1 1.5-8.1 #) [place] 963423-02-22 13:17:00 Test Item Value Reference Range Interpretation Comments Lymphocytes # (test code = Lymphocytes 2.2 1.0-5.5 #) [place] 963423-02-22 13:17:00 Test Item Value Reference Range Interpretation Comments Monocytes # (test code 0.8 See_Comment [Aut omated message] The = Monocytes #) system which generated this result tra nsmitted reference range : <=0.8. The reference r christiano was not used to int erpret this result as normal/abnormal . [place] 963423-02-22 13:17:00 Test Item Value Reference Range Interpretation Comments Eosinophils # (test code 0.4 See_Comment [A utomated message] The = Eosinophils #) system whic h generated this result tra nsmitted reference range : <=0.5. The reference r christiano was not used to int erpret this result as normal/abnormal . [place] 963423-02-22 13:17:00 Test Item Value Reference Range Interpretation Comments Basophils # (test code 0.1 See_Comment [Aut omated message] The = Basophils #) system which generated this result tra nsmitted reference range : <=0.2. The reference r christiano was not used to int erpret this result as normal/abnormal . [place] 963423-02-22 13:17:00 Test Item Value Reference Range Interpretation Comments WBC (test code = WBC) 7.5 3.7-10.4 [place] [address]-02-22 13:17:00 Test Item Value Reference Range Interpretation Comments RBC (test code = RBC) 3.30 4.20-5.40 [place] 963423-02-22 13:17:00 Test Item Value Reference Range Interpretation Comments Hgb (test code = Hgb) 9.9 12.0-16.0 [place] [address]-02-22 13:17:00 Test Item Value Reference Range Interpretation Comments Hct (test code = Hct) 30.3 36.0-48.0 [place] [address]-02-22 13:17:00 Test Item Value Reference Range Interpretation Comments MCV (test code = MCV) 91.8 80.0-98.0 [place] [address]-02-22 13:17:00 Test Item Value Reference Range Interpretation Comments MCH (test code = MCH) 30.0 pg 27.0-31.0 [place] [address]-02-22 13:17:00 Test Item Value Reference Range Interpretation Comments MCHC (test code = MCHC) 32.7 32.0-36.0 [place] 963423-02-22 13:17:00 Test Item Value Reference Range Interpretation Comments RDW (test code = RDW) 14.4 11.5-14.5 [facility] HospitalVcqkflyFQSDWBEEZL8691-02-79 13:17:00 Test Item Value Reference Range Interpretation Comments Platelet (test code = Platelet) 136 133-450 [place] 963423-02-22 13:17:00 Test Item Value Reference Range Interpretation Comments MPV (test code = MPV) 8.7 7.4-10.4 [place] 963423-02-22 13:17:00 Test Item Value Reference Range Interpretation Comments Segs (test code = Segs) 54.4 45.0-75.0 [place] 963423-02-22 13:17:00 Test Item Value Reference Range Interpretation Comments Lymphocytes (test code = Lymphocytes) 29.3 20.0-40.0 [place] 963423-02-22 13:17:00 Test Item Value Reference Range Interpretation Comments Monocytes (test code = Monocytes) 10.5 2.0-12.0 [facility] HospitalGgyurhwWXYVOSJCTD2431-20-07 13:17:00 Test Item Value Reference Range Interpretation Comments Eosinophils (test code = 5.0 See_Comment [A utomated message] The Eosinophils) system which ge nerated this result tra nsmitted reference range : <=4.0. The reference r christiano was not used to int erpret this result as normal/abnormal . [facility] HospitalRcfmtkpWQUUBVBHDX4199-18-20 13:17:00 Test Item Value Reference Range Interpretation Comments Basophils (test code = 0.8 See_Comment [Aut omated message] The Basophils) system which ge nerated this result tra nsmitted reference range : <=1.0. The reference r christiano was not used to int erpret this result as normal/abnormal . [place] 963423-02-22 13:17:00 Test Item Value Reference Range Interpretation Comments Neutrophils # (test code = Neutrophils 4.1 1.5-8.1 #) [place] 963423-02-22 13:17:00 Test Item Value Reference Range Interpretation Comments Lymphocytes # (test code = Lymphocytes 2.2 1.0-5.5 #) [place] 963423-02-22 13:17:00 Test Item Value Reference Range Interpretation Comments Monocytes # (test code 0.8 See_Comment [Aut omated message] The = Monocytes #) system which generated this result tra nsmitted reference range : <=0.8. The reference r christiano was not used to int erpret this result as normal/abnormal . [place] 963423-02-22 13:17:00 Test Item Value Reference Range Interpretation Comments Eosinophils # (test code 0.4 See_Comment [A utomated message] The = Eosinophils #) system whic h generated this result tra nsmitted reference range : <=0.5. The reference r christiano was not used to int erpret this result as normal/abnormal . [place] 963423-02-22 13:17:00 Test Item Value Reference Range Interpretation Comments Basophils # (test code 0.1 See_Comment [Aut omated message] The = Basophils #) system which generated this result tra nsmitted reference range : <=0.2. The reference r christiano was not used to int erpret this result as normal/abnormal . [place] 963423-02-22 13:17:00 Test Item Value Reference Range Interpretation Comments WBC (test code = WBC) 7.5 3.7-10.4 [place] 963423-02-22 13:17:00 Test Item Value Reference Range Interpretation Comments RBC (test code = RBC) 3.30 4.20-5.40 [place] [address]-02-22 13:17:00 Test Item Value Reference Range Interpretation Comments Hgb (test code = Hgb) 9.9 12.0-16.0 [place] [address]-02-22 13:17:00 Test Item Value Reference Range Interpretation Comments Hct (test code = Hct) 30.3 36.0-48.0 [place] [address]-02-22 13:17:00 Test Item Value Reference Range Interpretation Comments MCV (test code = MCV) 91.8 80.0-98.0 [place] [address]-02-22 13:17:00 Test Item Value Reference Range Interpretation Comments MCH (test code = MCH) 30.0 pg 27.0-31.0 [place] 963423-02-22 13:17:00 Test Item Value Reference Range Interpretation Comments MCHC (test code = MCHC) 32.7 32.0-36.0 [place] 963423-02-22 13:17:00 Test Item Value Reference Range Interpretation Comments RDW (test code = RDW) 14.4 11.5-14.5 [place] 963423-02-22 13:17:00 Test Item Value Reference Range Interpretation Comments Platelet (test code = Platelet) 136 133-450 [place] 963423-02-22 13:17:00 Test Item Value Reference Range Interpretation Comments MPV (test code = MPV) 8.7 7.4-10.4 [place] 529873-02-22 13:17:00 Test Item Value Reference Range Interpretation Comments Ca Ion WB (test code = Ca Ion WB) 1.06 1.05-1.25 [place] 529873-02-22 13:17:00 Test Item Value Reference Range Interpretation Comments Ca Ion at pH 7.4 WB (test code = Ca Ion 1.03 1.05-1.25 at pH 7.4 WB) [facility]2023-02-22 13:17:00 Test Item Value Reference Range Interpretation Comments Glucose Lvl (test code = Glucose Lvl) 65 70-99 [place] 457353-02-22 13:17:00 Test Item Value Reference Range Interpretation Comments BUN (test code = BUN) 39 7-22 [place] 457353-02-22 13:17:00 Test Item Value Reference Range Interpretation Comments Creatinine Lvl (test code = Creatinine 2.03 0.50-1.40 Lvl) [place] 457353-02-22 13:17:00 Test Item Value Reference Range Interpretation Comments Sodium Lvl (test code = Sodium Lvl) 139 135-145 [place] 457353-02-22 13:17:00 Test Item Value Reference Range Interpretation Comments Potassium Lvl (test code = Potassium 4.7 3.5-5.1 Lvl) [place] 457353-02-22 13:17:00 Test Item Value Reference Range Interpretation Comments Chloride Lvl (test code = Chloride Lvl) 107 95-109 [place] 457353-02-22 13:17:00 Test Item Value Reference Range Interpretation Comments CO2 (test code = CO2) 26 24-32 [place] 457353-02-22 13:17:00 Test Item Value Reference Range Interpretation Comments Calcium Lvl (test code = Calcium Lvl) 8.1 8.5-10.5 [place] 457353-02-22 13:17:00 Test Item Value Reference Range Interpretation Comments AGAP (test code = AGAP) 10.7 10.0-20.0 [place] 457353-02-22 13:17:00 Test Item Value Reference Range Interpretation Comments eGFR (test code = eGFR) 24 [place] 457353-02-22 13:17:00 Test Item Value Reference Range Interpretation Comments Magnesium Lvl (test code = Magnesium 2.7 1.8-2.4 Lvl) [place] 457353-02-22 13:17:00 Test Item Value Reference Range Interpretation Comments Phosphorus (test code = Phosphorus) 3.9 2.5-4.5 [place] 922233-02-22 13:17:00 Test Item Value Reference Range Interpretation Comments Glucose Lvl (test code = Glucose Lvl) 65 70-99 [place] 922233-02-22 13:17:00 Test Item Value Reference Range Interpretation Comments BUN (test code = BUN) 39 7-22 [place] 922233-02-22 13:17:00 Test Item Value Reference Range Interpretation Comments Creatinine Lvl (test code = Creatinine 2.03 0.50-1.40 Lvl) [place] 922233-02-22 13:17:00 Test Item Value Reference Range Interpretation Comments Sodium Lvl (test code = Sodium Lvl) 139 135-145 [place] [address]-02-22 13:17:00 Test Item Value Reference Range Interpretation Comments Potassium Lvl (test code = Potassium 4.7 3.5-5.1 Lvl) [place] 922233-02-22 13:17:00 Test Item Value Reference Range Interpretation Comments Chloride Lvl (test code = Chloride Lvl) 107 95-109 [place] 922233-02-22 13:17:00 Test Item Value Reference Range Interpretation Comments CO2 (test code = CO2) 26 24-32 [place] 922233-02-22 13:17:00 Test Item Value Reference Range Interpretation Comments Calcium Lvl (test code = Calcium Lvl) 8.1 8.5-10.5 [place] 922233-02-22 13:17:00 Test Item Value Reference Range Interpretation Comments AGAP (test code = AGAP) 10.7 10.0-20.0 [place] 922233-02-22 13:17:00 Test Item Value Reference Range Interpretation Comments eGFR (test code = eGFR) 24 [facility]KclkpptWKRDDBSGP1423-31-83 13:17:00 Test Item Value Reference Range Interpretation Comments Ca Ion WB (test code = Ca Ion WB) 1.06 1.05-1.25 [place] 922233-02-22 13:17:00 Test Item Value Reference Range Interpretation Comments Ca Ion at pH 7.4 WB (test code = Ca Ion 1.03 1.05-1.25 at pH 7.4 WB) [facility] TexasQwmevuwVLCIOOLVP9570-47-65 13:17:00 Test Item Value Reference Range Interpretation Comments Magnesium Lvl (test code = Magnesium 2.7 1.8-2.4 Lvl) [facility] TexasXfusinoOQKYNCEJT5013-44-66 13:17:00 Test Item Value Reference Range Interpretation Comments Phosphorus (test code = Phosphorus) 3.9 2.5-4.5 [place] 963423-02-22 13:17:00 Test Item Value Reference Range Interpretation Comments Segs (test code = Segs) 54.4 45.0-75.0 [place] 963423-02-22 13:17:00 Test Item Value Reference Range Interpretation Comments Lymphocytes (test code = Lymphocytes) 29.3 20.0-40.0 [place] [address]-02-22 13:17:00 Test Item Value Reference Range Interpretation Comments Monocytes (test code = Monocytes) 10.5 2.0-12.0 [place] [address]-02-22 13:17:00 Test Item Value Reference Range Interpretation Comments Eosinophils (test code = 5.0 See_Comment [A utomated message] The Eosinophils) system which ge nerated this result tra nsmitted reference range : <=4.0. The reference r christiano was not used to int erpret this result as normal/abnormal . [place] 963423-02-22 13:17:00 Test Item Value Reference Range Interpretation Comments Basophils (test code = 0.8 See_Comment [Aut omated message] The Basophils) system which ge nerated this result tra nsmitted reference range : <=1.0. The reference r christiano was not used to int erpret this result as normal/abnormal . [place] 963423-02-22 13:17:00 Test Item Value Reference Range Interpretation Comments Neutrophils # (test code = Neutrophils 4.1 1.5-8.1 #) [facility]BNMCH[facility]WRJN9123[facility]94-67 13:17:00 Test Item Value Reference Range Interpretation Comments Lymphocytes # (test code = Lymphocytes 2.2 1.0-5.5 #) [place] 963423-02-22 13:17:00 Test Item Value Reference Range Interpretation Comments Monocytes # (test code 0.8 See_Comment [Aut omated message] The = Monocytes #) system which generated this result tra nsmitted reference range : <=0.8. The reference r christiano was not used to int erpret this result as normal/abnormal . [facility] HospitalAtzliwnVJETIWIPQA2491-84-72 13:17:00 Test Item Value Reference Range Interpretation Comments Eosinophils # (test code 0.4 See_Comment [A utomated message] The = Eosinophils #) system whic h generated this result tra nsmitted reference range : <=0.5. The reference r christiano was not used to int erpret this result as normal/abnormal . [facility] HospitalNjdmygpLHVCVPJPTI5839-79-49 13:17:00 Test Item Value Reference Range Interpretation Comments Basophils # (test code 0.1 See_Comment [Aut omated message] The = Basophils #) system which generated this result tra nsmitted reference range : <=0.2. The reference r christiano was not used to int erpret this result as normal/abnormal . [facility] HospitalEowiemwPKUJCYNUHQ1590-18-98 13:17:00 Test Item Value Reference Range Interpretation Comments WBC (test code = WBC) 7.5 3.7-10.4 [place] 963423-02-22 13:17:00 Test Item Value Reference Range Interpretation Comments RBC (test code = RBC) 3.30 4.20-5.40 [place] 963423-02-22 13:17:00 Test Item Value Reference Range Interpretation Comments Hgb (test code = Hgb) 9.9 12.0-16.0 [place] 963423-02-22 13:17:00 Test Item Value Reference Range Interpretation Comments Hct (test code = Hct) 30.3 36.0-48.0 [place] 963423-02-22 13:17:00 Test Item Value Reference Range Interpretation Comments MCV (test code = MCV) 91.8 80.0-98.0 [place] 963423-02-22 13:17:00 Test Item Value Reference Range Interpretation Comments MCH (test code = MCH) 30.0 pg 27.0-31.0 [place] 963423-02-22 13:17:00 Test Item Value Reference Range Interpretation Comments MCHC (test code = MCHC) 32.7 32.0-36.0 [place] 963423-02-22 13:17:00 Test Item Value Reference Range Interpretation Comments RDW (test code = RDW) 14.4 11.5-14.5 [place] 963423-02-22 13:17:00 Test Item Value Reference Range Interpretation Comments Platelet (test code = Platelet) 136 133-450 [facility] HospitalZuoyakoWHNLZULUNV7815-06-86 13:17:00 Test Item Value Reference Range Interpretation Comments MPV (test code = MPV) 8.7 7.4-10.4 [place] 963423-02-22 13:17:00 Test Item Value Reference Range Interpretation Comments Segs (test code = Segs) 54.4 45.0-75.0 [place] 963423-02-22 13:17:00 Test Item Value Reference Range Interpretation Comments Lymphocytes (test code = Lymphocytes) 29.3 20.0-40.0 [place] 963423-02-22 13:17:00 Test Item Value Reference Range Interpretation Comments Monocytes (test code = Monocytes) 10.5 2.0-12.0 [place] [address]-02-22 13:17:00 Test Item Value Reference Range Interpretation Comments Eosinophils (test code = 5.0 See_Comment [A utomated message] The Eosinophils) system which ge nerated this result tra nsmitted reference range : <=4.0. The reference r christiano was not used to int erpret this result as normal/abnormal . [facility] HospitalQuywvtySQNQMDXASR1966-70-85 13:17:00 Test Item Value Reference Range Interpretation Comments Basophils (test code = 0.8 See_Comment [Aut omated message] The Basophils) system which ge nerated this result tra nsmitted reference range : <=1.0. The reference r christiano was not used to int erpret this result as normal/abnormal . [place] 963423-02-22 13:17:00 Test Item Value Reference Range Interpretation Comments Neutrophils # (test code = Neutrophils 4.1 1.5-8.1 #) [place] 963423-02-22 13:17:00 Test Item Value Reference Range Interpretation Comments Lymphocytes # (test code = Lymphocytes 2.2 1.0-5.5 #) [facility] HospitalPnzgfhfXSIJMWLZGX5579-52-61 13:17:00 Test Item Value Reference Range Interpretation Comments Monocytes # (test code 0.8 See_Comment [Aut omated message] The = Monocytes #) system which generated this result tra nsmitted reference range : <=0.8. The reference r christiano was not used to int erpret this result as normal/abnormal . [facility] HospitalBmzzacbBQIPHUZKOU9737-76-62 13:17:00 Test Item Value Reference Range Interpretation Comments Eosinophils # (test code 0.4 See_Comment [A utomated message] The = Eosinophils #) system whic h generated this result tra nsmitted reference range : <=0.5. The reference r christiano was not used to int erpret this result as normal/abnormal . [facility] HospitalIqoijldODUSELQJMW6926-54-77 13:17:00 Test Item Value Reference Range Interpretation Comments Basophils # (test code 0.1 See_Comment [Aut omated message] The = Basophils #) system which generated this result tra nsmitted reference range : <=0.2. The reference r christiano was not used to int erpret this result as normal/abnormal . [place] 963423-02-22 13:17:00 Test Item Value Reference Range Interpretation Comments WBC (test code = WBC) 7.5 3.7-10.4 [place] 963423-02-22 13:17:00 Test Item Value Reference Range Interpretation Comments RBC (test code = RBC) 3.30 4.20-5.40 [place] 963423-02-22 13:17:00 Test Item Value Reference Range Interpretation Comments Hgb (test code = Hgb) 9.9 12.0-16.0 [place] [address]-02-22 13:17:00 Test Item Value Reference Range Interpretation Comments Hct (test code = Hct) 30.3 36.0-48.0 [facility] HospitalQxlzhrkTKQGGYWBKY6357-92-32 13:17:00 Test Item Value Reference Range Interpretation Comments MCV (test code = MCV) 91.8 80.0-98.0 [facility] HospitalXdqqeslOOORUZLGKL4303-84-52 13:17:00 Test Item Value Reference Range Interpretation Comments MCH (test code = MCH) 30.0 pg 27.0-31.0 [place] 963423-02-22 13:17:00 Test Item Value Reference Range Interpretation Comments MCHC (test code = MCHC) 32.7 32.0-36.0 [facility] HospitalBaretrvZFOLFOQORB0580-76-23 13:17:00 Test Item Value Reference Range Interpretation Comments RDW (test code = RDW) 14.4 11.5-14.5 [facility] HospitalMwxafxoAMNWSMNCAY0719-95-72 13:17:00 Test Item Value Reference Range Interpretation Comments Platelet (test code = Platelet) 136 133-450 [facility] HospitalRijfhnvBADKWIIZRN9083-33-46 13:17:00 Test Item Value Reference Range Interpretation Comments MPV (test code = MPV) 8.7 7.4-10.4 [facility]PARATHYROID LZIJPFI4413-57-72 13:17:00 Test Item Value Reference Range Interpretation Comments Ca Ion WB (test code = Ca Ion WB) 1.06 1.05-1.25 [facility]RO[facility] NAQHXVC2445-00-75 13:17:00 Test Item Value Reference Range Interpretation Comments Ca Ion at pH 7.4 WB (test code = Ca Ion 1.03 1.05-1.25 at pH 7.4 WB) [facility]2023-02-22 13:17:00 Test Item Value Reference Range Interpretation Comments Glucose Lvl (test code = Glucose Lvl) 65 70-99 [facility]2023-02-22 13:17:00 Test Item Value Reference Range Interpretation Comments BUN (test code = BUN) 39 7-22 [place] 457353-02-22 13:17:00 Test Item Value Reference Range Interpretation Comments Creatinine Lvl (test code = Creatinine 2.03 0.50-1.40 Lvl) [place] 457353-02-22 13:17:00 Test Item Value Reference Range Interpretation Comments Sodium Lvl (test code = Sodium Lvl) 139 135-145 [place] 457353-02-22 13:17:00 Test Item Value Reference Range Interpretation Comments Potassium Lvl (test code = Potassium 4.7 3.5-5.1 Lvl) [place] 457353-02-22 13:17:00 Test Item Value Reference Range Interpretation Comments Chloride Lvl (test code = Chloride Lvl) 107 95-109 [facility]2023-02-22 13:17:00 Test Item Value Reference Range Interpretation Comments CO2 (test code = CO2) 26 24-32 [place] 457353-02-22 13:17:00 Test Item Value Reference Range Interpretation Comments Calcium Lvl (test code = Calcium Lvl) 8.1 8.5-10.5 [facility]2023-02-22 13:17:00 Test Item Value Reference Range Interpretation Comments AGAP (test code = AGAP) 10.7 10.0-20.0 [facility]2023-02-22 13:17:00 Test Item Value Reference Range Interpretation Comments eGFR (test code = eGFR) 24 [place] 457353-02-22 13:17:00 Test Item Value Reference Range Interpretation Comments Magnesium Lvl (test code = Magnesium 2.7 1.8-2.4 Lvl) [facility]2023-02-22 13:17:00 Test Item Value Reference Range Interpretation Comments Phosphorus (test code = Phosphorus) 3.9 2.5-4.5 [place] 922233-02-22 13:17:00 Test Item Value Reference Range Interpretation Comments Glucose Lvl (test code = Glucose Lvl) 65 70-99 [place] 922233-02-22 13:17:00 Test Item Value Reference Range Interpretation Comments BUN (test code = BUN) 39 7-22 [place] 922233-02-22 13:17:00 Test Item Value Reference Range Interpretation Comments Creatinine Lvl (test code = Creatinine 2.03 0.50-1.40 Lvl) [facility]LvhzquvBISSUDEFA5107-29-88 13:17:00 Test Item Value Reference Range Interpretation Comments Sodium Lvl (test code = Sodium Lvl) 139 135-145 [facility] TexasZkomflwMXOKRYHEJ8292-71-52 13:17:00 Test Item Value Reference Range Interpretation Comments Potassium Lvl (test code = Potassium 4.7 3.5-5.1 Lvl) [facility] TexasNdbpuieBOKCDYGXN3756-99-84 13:17:00 Test Item Value Reference Range Interpretation Comments Chloride Lvl (test code = Chloride Lvl) 107 95-109 [place] 922233-02-22 13:17:00 Test Item Value Reference Range Interpretation Comments CO2 (test code = CO2) 26 24-32 [facility] TexasPavnvzoGMLQRHFOR6191-68-61 13:17:00 Test Item Value Reference Range Interpretation Comments Calcium Lvl (test code = Calcium Lvl) 8.1 8.5-10.5 [facility] TexasUbpsbxcTXVWYLELK0993-56-87 13:17:00 Test Item Value Reference Range Interpretation Comments AGAP (test code = AGAP) 10.7 10.0-20.0 [facility] TexasGptpmmeKNXYILGOI5429-18-51 13:17:00 Test Item Value Reference Range Interpretation Comments eGFR (test code = eGFR) 24 [facility] TexasJkljkuqHOSHWQXLD8223-96-75 13:17:00 Test Item Value Reference Range Interpretation Comments Ca Ion WB (test code = Ca Ion WB) 1.06 1.05-1.25 [place] 922233-02-22 13:17:00 Test Item Value Reference Range Interpretation Comments Ca Ion at pH 7.4 WB (test code = Ca Ion 1.03 1.05-1.25 at pH 7.4 WB) [facility] TexasUvvzdhzYZQLJQYHL5245-54-20 13:17:00 Test Item Value Reference Range Interpretation Comments Magnesium Lvl (test code = Magnesium 2.7 1.8-2.4 Lvl) [facility] TexasUcrrywwGFOKUKXCG0380-94-25 13:17:00 Test Item Value Reference Range Interpretation Comments Phosphorus (test code = Phosphorus) 3.9 2.5-4.5 [facility] HospitalOvpnenoWBZQSGXIFF3092-88-26 13:17:00 Test Item Value Reference Range Interpretation Comments Segs (test code = Segs) 54.4 45.0-75.0 [place] 963423-02-22 13:17:00 Test Item Value Reference Range Interpretation Comments Lymphocytes (test code = Lymphocytes) 29.3 20.0-40.0 [place] [address]-02-22 13:17:00 Test Item Value Reference Range Interpretation Comments Monocytes (test code = Monocytes) 10.5 2.0-12.0 [place] 963423-02-22 13:17:00 Test Item Value Reference Range Interpretation Comments Eosinophils (test code = 5.0 See_Comment [A utomated message] The Eosinophils) system which ge nerated this result tra nsmitted reference range : <=4.0. The reference r christiano was not used to int erpret this result as normal/abnormal . [place] [address]-02-22 13:17:00 Test Item Value Reference Range Interpretation Comments Basophils (test code = 0.8 See_Comment [Aut omated message] The Basophils) system which ge nerated this result tra nsmitted reference range : <=1.0. The reference r christiano was not used to int erpret this result as normal/abnormal . [place] 963423-02-22 13:17:00 Test Item Value Reference Range Interpretation Comments Neutrophils # (test code = Neutrophils 4.1 1.5-8.1 #) [place] 963423-02-22 13:17:00 Test Item Value Reference Range Interpretation Comments Lymphocytes # (test code = Lymphocytes 2.2 1.0-5.5 #) [place] [address]-02-22 13:17:00 Test Item Value Reference Range Interpretation Comments Monocytes # (test code 0.8 See_Comment [Aut omated message] The = Monocytes #) system which generated this result tra nsmitted reference range : <=0.8. The reference r christiano was not used to int erpret this result as normal/abnormal . [place] 963423-02-22 13:17:00 Test Item Value Reference Range Interpretation Comments Eosinophils # (test code 0.4 See_Comment [A utomated message] The = Eosinophils #) system whic h generated this result tra nsmitted reference range : <=0.5. The reference r christiano was not used to int erpret this result as normal/abnormal . [place] 963423-02-22 13:17:00 Test Item Value Reference Range Interpretation Comments Basophils # (test code 0.1 See_Comment [Aut omated message] The = Basophils #) system which generated this result tra nsmitted reference range : <=0.2. The reference r christiano was not used to int erpret this result as normal/abnormal . [facility] HospitalWxszudcXKVCDRWLVQ2742-44-58 13:17:00 Test Item Value Reference Range Interpretation Comments WBC (test code = WBC) 7.5 3.7-10.4 [place] 963423-02-22 13:17:00 Test Item Value Reference Range Interpretation Comments RBC (test code = RBC) 3.30 4.20-5.40 [place] 963423-02-22 13:17:00 Test Item Value Reference Range Interpretation Comments Hgb (test code = Hgb) 9.9 12.0-16.0 [place] 963423-02-22 13:17:00 Test Item Value Reference Range Interpretation Comments Hct (test code = Hct) 30.3 36.0-48.0 [place] 963423-02-22 13:17:00 Test Item Value Reference Range Interpretation Comments MCV (test code = MCV) 91.8 80.0-98.0 [place] 963423-02-22 13:17:00 Test Item Value Reference Range Interpretation Comments MCH (test code = MCH) 30.0 pg 27.0-31.0 [place] 963423-02-22 13:17:00 Test Item Value Reference Range Interpretation Comments MCHC (test code = MCHC) 32.7 32.0-36.0 [place] [address]-02-22 13:17:00 Test Item Value Reference Range Interpretation Comments RDW (test code = RDW) 14.4 11.5-14.5 [place] 963423-02-22 13:17:00 Test Item Value Reference Range Interpretation Comments Platelet (test code = Platelet) 136 133-450 [place] 963423-02-22 13:17:00 Test Item Value Reference Range Interpretation Comments MPV (test code = MPV) 8.7 7.4-10.4 [place] 963423-02-22 13:17:00 Test Item Value Reference Range Interpretation Comments Segs (test code = Segs) 54.4 45.0-75.0 [place] 963423-02-22 13:17:00 Test Item Value Reference Range Interpretation Comments Lymphocytes (test code = Lymphocytes) 29.3 20.0-40.0 [place] 963423-02-22 13:17:00 Test Item Value Reference Range Interpretation Comments Monocytes (test code = Monocytes) 10.5 2.0-12.0 [place] 963423-02-22 13:17:00 Test Item Value Reference Range Interpretation Comments Eosinophils (test code = 5.0 See_Comment [A utomated message] The Eosinophils) system which ge nerated this result tra nsmitted reference range : <=4.0. The reference r christiano was not used to int erpret this result as normal/abnormal . [place] 963423-02-22 13:17:00 Test Item Value Reference Range Interpretation Comments Basophils (test code = 0.8 See_Comment [Aut omated message] The Basophils) system which ge nerated this result tra nsmitted reference range : <=1.0. The reference r christiano was not used to int erpret this result as normal/abnormal . [place] 963423-02-22 13:17:00 Test Item Value Reference Range Interpretation Comments Neutrophils # (test code = Neutrophils 4.1 1.5-8.1 #) [place] 963423-02-22 13:17:00 Test Item Value Reference Range Interpretation Comments Lymphocytes # (test code = Lymphocytes 2.2 1.0-5.5 #) [place] 963423-02-22 13:17:00 Test Item Value Reference Range Interpretation Comments Monocytes # (test code 0.8 See_Comment [Aut omated message] The = Monocytes #) system which generated this result tra nsmitted reference range : <=0.8. The reference r christiano was not used to int erpret this result as normal/abnormal . [place] 963423-02-22 13:17:00 Test Item Value Reference Range Interpretation Comments Eosinophils # (test code 0.4 See_Comment [A utomated message] The = Eosinophils #) system whic h generated this result tra nsmitted reference range : <=0.5. The reference r christiano was not used to int erpret this result as normal/abnormal . [facility] HospitalJpoubeyWPAHMYCGJQ1665-82-54 13:17:00 Test Item Value Reference Range Interpretation Comments Basophils # (test code 0.1 See_Comment [Aut omated message] The = Basophils #) system which generated this result tra nsmitted reference range : <=0.2. The reference r christiano was not used to int erpret this result as normal/abnormal . [facility] HospitalSplhupjPMTIUIDCIH3626-60-54 13:17:00 Test Item Value Reference Range Interpretation Comments WBC (test code = WBC) 7.5 3.7-10.4 [place] 963423-02-22 13:17:00 Test Item Value Reference Range Interpretation Comments RBC (test code = RBC) 3.30 4.20-5.40 [place] 963423-02-22 13:17:00 Test Item Value Reference Range Interpretation Comments Hgb (test code = Hgb) 9.9 12.0-16.0 [facility] HospitalBioqzmzHVZAUMQBHK5698-06-37 13:17:00 Test Item Value Reference Range Interpretation Comments Hct (test code = Hct) 30.3 36.0-48.0 [facility] HospitalRpubcvhFPOQJEXZDR0704-64-56 13:17:00 Test Item Value Reference Range Interpretation Comments MCV (test code = MCV) 91.8 80.0-98.0 [place] 963423-02-22 13:17:00 Test Item Value Reference Range Interpretation Comments MCH (test code = MCH) 30.0 pg 27.0-31.0 [facility] HospitalWksnbrlJLQZDMEOLM5812-02-57 13:17:00 Test Item Value Reference Range Interpretation Comments MCHC (test code = MCHC) 32.7 32.0-36.0 [facility] HospitalGpkuiwgNCLGNRWFOI7502-94-46 13:17:00 Test Item Value Reference Range Interpretation Comments RDW (test code = RDW) 14.4 11.5-14.5 [place] 963423-02-22 13:17:00 Test Item Value Reference Range Interpretation Comments Platelet (test code = Platelet) 136 133-450 [facility] HospitalMobdstvPFCEOXFRZA6860-43-73 13:17:00 Test Item Value Reference Range Interpretation Comments MPV (test code = MPV) 8.7 7.4-10.4 [place] 529873-02-22 13:17:00 Test Item Value Reference Range Interpretation Comments Ca Ion WB (test code = Ca Ion WB) 1.06 1.05-1.25 [facility]2023-02-22 13:17:00 Test Item Value Reference Range Interpretation Comments Ca Ion at pH 7.4 WB (test code = Ca Ion 1.03 1.05-1.25 at pH 7.4 WB) [facility]2023-02-22 13:17:00 Test Item Value Reference Range Interpretation Comments Glucose Lvl (test code = Glucose Lvl) 65 70-99 [place] 457353-02-22 13:17:00 Test Item Value Reference Range Interpretation Comments BUN (test code = BUN) 39 7-22 [place] 457353-02-22 13:17:00 Test Item Value Reference Range Interpretation Comments Creatinine Lvl (test code = Creatinine 2.03 0.50-1.40 Lvl) [place] 457353-02-22 13:17:00 Test Item Value Reference Range Interpretation Comments Sodium Lvl (test code = Sodium Lvl) 139 135-145 [facility]2023-02-22 13:17:00 Test Item Value Reference Range Interpretation Comments Potassium Lvl (test code = Potassium 4.7 3.5-5.1 Lvl) [place] 457353-02-22 13:17:00 Test Item Value Reference Range Interpretation Comments Chloride Lvl (test code = Chloride Lvl) 107 95-109 [facility]2023-02-22 13:17:00 Test Item Value Reference Range Interpretation Comments CO2 (test code = CO2) 26 24-32 [place] 457353-02-22 13:17:00 Test Item Value Reference Range Interpretation Comments Calcium Lvl (test code = Calcium Lvl) 8.1 8.5-10.5 [place] 457353-02-22 13:17:00 Test Item Value Reference Range Interpretation Comments AGAP (test code = AGAP) 10.7 10.0-20.0 [place] 457353-02-22 13:17:00 Test Item Value Reference Range Interpretation Comments eGFR (test code = eGFR) 24 [facility]2023-02-22 13:17:00 Test Item Value Reference Range Interpretation Comments Magnesium Lvl (test code = Magnesium 2.7 1.8-2.4 Lvl) [facility]2023-02-22 13:17:00 Test Item Value Reference Range Interpretation Comments Phosphorus (test code = Phosphorus) 3.9 2.5-4.5 [place] 922233-02-22 13:17:00 Test Item Value Reference Range Interpretation Comments Glucose Lvl (test code = Glucose Lvl) 65 70-99 [place] [address]-02-22 13:17:00 Test Item Value Reference Range Interpretation Comments BUN (test code = BUN) 39 7-22 [facility]WhgzfyqLMVLTUDQV4716-33-57 13:17:00 Test Item Value Reference Range Interpretation Comments Creatinine Lvl (test code = Creatinine 2.03 0.50-1.40 Lvl) [facility]MuwxsxgPMTGVZHIT5942-67-49 13:17:00 Test Item Value Reference Range Interpretation Comments Sodium Lvl (test code = Sodium Lvl) 139 135-145 [facility] TexasJynmuquAFDOOSMZT3449-30-87 13:17:00 Test Item Value Reference Range Interpretation Comments Potassium Lvl (test code = Potassium 4.7 3.5-5.1 Lvl) [facility] TexasVvayfixMSWFWDNUC2914-09-48 13:17:00 Test Item Value Reference Range Interpretation Comments Chloride Lvl (test code = Chloride Lvl) 107 95-109 [place] 922233-02-22 13:17:00 Test Item Value Reference Range Interpretation Comments CO2 (test code = CO2) 26 24-32 [place] 922233-02-22 13:17:00 Test Item Value Reference Range Interpretation Comments Calcium Lvl (test code = Calcium Lvl) 8.1 8.5-10.5 [place] 922233-02-22 13:17:00 Test Item Value Reference Range Interpretation Comments AGAP (test code = AGAP) 10.7 10.0-20.0 [place] 922233-02-22 13:17:00 Test Item Value Reference Range Interpretation Comments eGFR (test code = eGFR) 24 [place] 922233-02-22 13:17:00 Test Item Value Reference Range Interpretation Comments Ca Ion WB (test code = Ca Ion WB) 1.06 1.05-1.25 [place] 922233-02-22 13:17:00 Test Item Value Reference Range Interpretation Comments Ca Ion at pH 7.4 WB (test code = Ca Ion 1.03 1.05-1.25 at pH 7.4 WB) [facility] TexasJlerznqNLGSRCNCU4938-18-21 13:17:00 Test Item Value Reference Range Interpretation Comments Magnesium Lvl (test code = Magnesium 2.7 1.8-2.4 Lvl) [place] 922233-02-22 13:17:00 Test Item Value Reference Range Interpretation Comments Phosphorus (test code = Phosphorus) 3.9 2.5-4.5 [place] 963423-02-22 13:17:00 Test Item Value Reference Range Interpretation Comments Segs (test code = Segs) 54.4 45.0-75.0 [place] 963423-02-22 13:17:00 Test Item Value Reference Range Interpretation Comments Lymphocytes (test code = Lymphocytes) 29.3 20.0-40.0 [place] 963423-02-22 13:17:00 Test Item Value Reference Range Interpretation Comments Monocytes (test code = Monocytes) 10.5 2.0-12.0 [place] 963423-02-22 13:17:00 Test Item Value Reference Range Interpretation Comments Eosinophils (test code = 5.0 See_Comment [A utomated message] The Eosinophils) system which ge nerated this result tra nsmitted reference range : <=4.0. The reference r christiano was not used to int erpret this result as normal/abnormal . [facility]JdoflkdMNCCSIAVEV8083-51-90 13:17:00 Test Item Value Reference Range Interpretation Comments Basophils (test code = 0.8 See_Comment [Aut omated message] The Basophils) system which ge nerated this result tra nsmitted reference range : <=1.0. The reference r christiano was not used to int erpret this result as normal/abnormal . [place] 963423-02-22 13:17:00 Test Item Value Reference Range Interpretation Comments Neutrophils # (test code = Neutrophils 4.1 1.5-8.1 #) [place] 963423-02-22 13:17:00 Test Item Value Reference Range Interpretation Comments Lymphocytes # (test code = Lymphocytes 2.2 1.0-5.5 #) [place] 963423-02-22 13:17:00 Test Item Value Reference Range Interpretation Comments Monocytes # (test code 0.8 See_Comment [Aut omated message] The = Monocytes #) system which generated this result tra nsmitted reference range : <=0.8. The reference r christiano was not used to int erpret this result as normal/abnormal . [place] 963423-02-22 13:17:00 Test Item Value Reference Range Interpretation Comments Eosinophils # (test code 0.4 See_Comment [A utomated message] The = Eosinophils #) system whic h generated this result tra nsmitted reference range : <=0.5. The reference r christiano was not used to int erpret this result as normal/abnormal . [place] 963423-02-22 13:17:00 Test Item Value Reference Range Interpretation Comments Basophils # (test code 0.1 See_Comment [Aut omated message] The = Basophils #) system which generated this result tra nsmitted reference range : <=0.2. The reference r christiano was not used to int erpret this result as normal/abnormal . [place] 963423-02-22 13:17:00 Test Item Value Reference Range Interpretation Comments WBC (test code = WBC) 7.5 3.7-10.4 [place] 963423-02-22 13:17:00 Test Item Value Reference Range Interpretation Comments RBC (test code = RBC) 3.30 4.20-5.40 [place] [address]-02-22 13:17:00 Test Item Value Reference Range Interpretation Comments Hgb (test code = Hgb) 9.9 12.0-16.0 [place] [address]-02-22 13:17:00 Test Item Value Reference Range Interpretation Comments Hct (test code = Hct) 30.3 36.0-48.0 [place] [address]-02-22 13:17:00 Test Item Value Reference Range Interpretation Comments MCV (test code = MCV) 91.8 80.0-98.0 [place] [address]-02-22 13:17:00 Test Item Value Reference Range Interpretation Comments MCH (test code = MCH) 30.0 pg 27.0-31.0 [place] 963423-02-22 13:17:00 Test Item Value Reference Range Interpretation Comments MCHC (test code = MCHC) 32.7 32.0-36.0 [place] 963423-02-22 13:17:00 Test Item Value Reference Range Interpretation Comments RDW (test code = RDW) 14.4 11.5-14.5 [place] 963423-02-22 13:17:00 Test Item Value Reference Range Interpretation Comments Platelet (test code = Platelet) 136 133-450 [place] 963423-02-22 13:17:00 Test Item Value Reference Range Interpretation Comments MPV (test code = MPV) 8.7 7.4-10.4 [place] 963423-02-22 13:17:00 Test Item Value Reference Range Interpretation Comments Segs (test code = Segs) 54.4 45.0-75.0 [place] 963423-02-22 13:17:00 Test Item Value Reference Range Interpretation Comments Lymphocytes (test code = Lymphocytes) 29.3 20.0-40.0 [place] 963423-02-22 13:17:00 Test Item Value Reference Range Interpretation Comments Monocytes (test code = Monocytes) 10.5 2.0-12.0 [place] 963423-02-22 13:17:00 Test Item Value Reference Range Interpretation Comments Eosinophils (test code = 5.0 See_Comment [A utomated message] The Eosinophils) system which ge nerated this result tra nsmitted reference range : <=4.0. The reference r christiano was not used to int erpret this result as normal/abnormal . [facility]IU[facility]FF[facility]QQM2870[facility] 13:17:00 Test Item Value Reference Range Interpretation Comments Basophils (test code = 0.8 See_Comment [Aut omated message] The Basophils) system which ge nerated this result tra nsmitted reference range : <=1.0. The reference r christiano was not used to int erpret this result as normal/abnormal . [place] 963423-02-22 13:17:00 Test Item Value Reference Range Interpretation Comments Neutrophils # (test code = Neutrophils 4.1 1.5-8.1 #) [place] 963423-02-22 13:17:00 Test Item Value Reference Range Interpretation Comments Lymphocytes # (test code = Lymphocytes 2.2 1.0-5.5 #) [place] 963423-02-22 13:17:00 Test Item Value Reference Range Interpretation Comments Monocytes # (test code 0.8 See_Comment [Aut omated message] The = Monocytes #) system which generated this result tra nsmitted reference range : <=0.8. The reference r christiano was not used to int erpret this result as normal/abnormal . [place] 963423-02-22 13:17:00 Test Item Value Reference Range Interpretation Comments Eosinophils # (test code 0.4 See_Comment [A utomated message] The = Eosinophils #) system whic h generated this result tra nsmitted reference range : <=0.5. The reference r christiano was not used to int erpret this result as normal/abnormal . [facility] HospitalZybyaykIYELYKCOQA8626-79-96 13:17:00 Test Item Value Reference Range Interpretation Comments Basophils # (test code 0.1 See_Comment [Aut omated message] The = Basophils #) system which generated this result tra nsmitted reference range : <=0.2. The reference r christiano was not used to int erpret this result as normal/abnormal . [place] 963423-02-22 13:17:00 Test Item Value Reference Range Interpretation Comments WBC (test code = WBC) 7.5 3.7-10.4 [place] 963423-02-22 13:17:00 Test Item Value Reference Range Interpretation Comments RBC (test code = RBC) 3.30 4.20-5.40 [place] [address]-02-22 13:17:00 Test Item Value Reference Range Interpretation Comments Hgb (test code = Hgb) 9.9 12.0-16.0 [place] [address]-02-22 13:17:00 Test Item Value Reference Range Interpretation Comments Hct (test code = Hct) 30.3 36.0-48.0 [place] [address]-02-22 13:17:00 Test Item Value Reference Range Interpretation Comments MCV (test code = MCV) 91.8 80.0-98.0 [place] 963423-02-22 13:17:00 Test Item Value Reference Range Interpretation Comments MCH (test code = MCH) 30.0 pg 27.0-31.0 [facility] HospitalTvblvrqFPDKDPLASU6553-38-37 13:17:00 Test Item Value Reference Range Interpretation Comments MCHC (test code = MCHC) 32.7 32.0-36.0 [place] 963423-02-22 13:17:00 Test Item Value Reference Range Interpretation Comments RDW (test code = RDW) 14.4 11.5-14.5 [place] 963423-02-22 13:17:00 Test Item Value Reference Range Interpretation Comments Platelet (test code = Platelet) 136 133-450 [facility] HospitalVrsxteoDUQFFGZGAG9775-79-75 13:17:00 Test Item Value Reference Range Interpretation Comments MPV (test code = MPV) 8.7 7.4-10.4 [facility]2023-02-22 13:17:00 Test Item Value Reference Range Interpretation Comments Ca Ion WB (test code = Ca Ion WB) 1.06 1.05-1.25 [facility]2023-02-22 13:17:00 Test Item Value Reference Range Interpretation Comments Ca Ion at pH 7.4 WB (test code = Ca Ion 1.03 1.05-1.25 at pH 7.4 WB) [facility]2023-02-22 13:17:00 Test Item Value Reference Range Interpretation Comments Glucose Lvl (test code = Glucose Lvl) 65 70-99 [facility]2023-02-22 13:17:00 Test Item Value Reference Range Interpretation Comments BUN (test code = BUN) 39 7-22 [place] 457353-02-22 13:17:00 Test Item Value Reference Range Interpretation Comments Creatinine Lvl (test code = Creatinine 2.03 0.50-1.40 Lvl) [place] 457353-02-22 13:17:00 Test Item Value Reference Range Interpretation Comments Sodium Lvl (test code = Sodium Lvl) 139 135-145 [facility]2023-02-22 13:17:00 Test Item Value Reference Range Interpretation Comments Potassium Lvl (test code = Potassium 4.7 3.5-5.1 Lvl) [place] 457353-02-22 13:17:00 Test Item Value Reference Range Interpretation Comments Chloride Lvl (test code = Chloride Lvl) 107 95-109 [place] 457353-02-22 13:17:00 Test Item Value Reference Range Interpretation Comments CO2 (test code = CO2) 26 24-32 [place] [address]-02-22 13:17:00 Test Item Value Reference Range Interpretation Comments Calcium Lvl (test code = Calcium Lvl) 8.1 8.5-10.5 [place] 457353-02-22 13:17:00 Test Item Value Reference Range Interpretation Comments AGAP (test code = AGAP) 10.7 10.0-20.0 [place] [address]-02-22 13:17:00 Test Item Value Reference Range Interpretation Comments eGFR (test code = eGFR) 24 [place] [address]-02-22 13:17:00 Test Item Value Reference Range Interpretation Comments Magnesium Lvl (test code = Magnesium 2.7 1.8-2.4 Lvl) [place] 457353-02-22 13:17:00 Test Item Value Reference Range Interpretation Comments Phosphorus (test code = Phosphorus) 3.9 2.5-4.5 [place] [address]-02-22 13:17:00 Test Item Value Reference Range Interpretation Comments Glucose Lvl (test code = Glucose Lvl) 65 70-99 [place] [address]-02-22 13:17:00 Test Item Value Reference Range Interpretation Comments BUN (test code = BUN) 39 7-22 [place] [address]-02-22 13:17:00 Test Item Value Reference Range Interpretation Comments Creatinine Lvl (test code = Creatinine 2.03 0.50-1.40 Lvl) [place] [address]-02-22 13:17:00 Test Item Value Reference Range Interpretation Comments Sodium Lvl (test code = Sodium Lvl) 139 135-145 [place] [address]-02-22 13:17:00 Test Item Value Reference Range Interpretation Comments Potassium Lvl (test code = Potassium 4.7 3.5-5.1 Lvl) [place] [address]-02-22 13:17:00 Test Item Value Reference Range Interpretation Comments Chloride Lvl (test code = Chloride Lvl) 107 95-109 [facility]LlzzqveJFBJSLNQG7609-52-87 13:17:00 Test Item Value Reference Range Interpretation Comments CO2 (test code = CO2) 26 24-32 [facility] TexasNolxqoaIDBITOKKU9701-93-01 13:17:00 Test Item Value Reference Range Interpretation Comments Calcium Lvl (test code = Calcium Lvl) 8.1 8.5-10.5 [facility] TexasVzcybanEFWJKGFTD7428-97-92 13:17:00 Test Item Value Reference Range Interpretation Comments AGAP (test code = AGAP) 10.7 10.0-20.0 [facility] TexasCqchknzXCZZFCMQF5528-96-15 13:17:00 Test Item Value Reference Range Interpretation Comments eGFR (test code = eGFR) 24 [facility] TexasUhamronCKNFCLOVH4516-07-26 13:17:00 Test Item Value Reference Range Interpretation Comments Ca Ion WB (test code = Ca Ion WB) 1.06 1.05-1.25 [facility] TexasGekvignPEUGUKTSE1236-95-99 13:17:00 Test Item Value Reference Range Interpretation Comments Ca Ion at pH 7.4 WB (test code = Ca Ion 1.03 1.05-1.25 at pH 7.4 WB) [facility] TexasTmrixezSFUBTKUSL1118-10-90 13:17:00 Test Item Value Reference Range Interpretation Comments Magnesium Lvl (test code = Magnesium 2.7 1.8-2.4 Lvl) [facility] TexasRwmkejiRNNPIOFEF0106-54-94 13:17:00 Test Item Value Reference Range Interpretation Comments Phosphorus (test code = Phosphorus) 3.9 2.5-4.5 [facility] HospitalCcnnjujHQUNDRHSTY2388-13-34 13:17:00 Test Item Value Reference Range Interpretation Comments Segs (test code = Segs) 54.4 45.0-75.0 [place] 963423-02-22 13:17:00 Test Item Value Reference Range Interpretation Comments Lymphocytes (test code = Lymphocytes) 29.3 20.0-40.0 [place] 963423-02-22 13:17:00 Test Item Value Reference Range Interpretation Comments Monocytes (test code = Monocytes) 10.5 2.0-12.0 [place] 963423-02-22 13:17:00 Test Item Value Reference Range Interpretation Comments Eosinophils (test code = 5.0 See_Comment [A utomated message] The Eosinophils) system which ge nerated this result tra nsmitted reference range : <=4.0. The reference r christiano was not used to int erpret this result as normal/abnormal . [facility] HospitalCziinplOXJLMGPBIW3651-76-08 13:17:00 Test Item Value Reference Range Interpretation Comments Basophils (test code = 0.8 See_Comment [Aut omated message] The Basophils) system which ge nerated this result tra nsmitted reference range : <=1.0. The reference r christiano was not used to int erpret this result as normal/abnormal . [facility] HospitalJeokjhqPUFJDBRKOT1700-01-17 13:17:00 Test Item Value Reference Range Interpretation Comments Neutrophils # (test code = Neutrophils 4.1 1.5-8.1 #) [place] 963423-02-22 13:17:00 Test Item Value Reference Range Interpretation Comments Lymphocytes # (test code = Lymphocytes 2.2 1.0-5.5 #) [facility] HospitalLqkwtvxVLXRKKJAYG5451-75-56 13:17:00 Test Item Value Reference Range Interpretation Comments Monocytes # (test code 0.8 See_Comment [Aut omated message] The = Monocytes #) system which generated this result tra nsmitted reference range : <=0.8. The reference r christiano was not used to int erpret this result as normal/abnormal . [facility] HospitalXgzonxoYYIXPVYFEA2334-50-81 13:17:00 Test Item Value Reference Range Interpretation Comments Eosinophils # (test code 0.4 See_Comment [A utomated message] The = Eosinophils #) system wh h generated this result tra nsmitted reference range : <=0.5. The reference r christiano was not used to int erpret this result as normal/abnormal . [facility] HospitalKxhegxaOVOWEWCHWR0824-96-96 13:17:00 Test Item Value Reference Range Interpretation Comments Basophils # (test code 0.1 See_Comment [Aut omated message] The = Basophils #) system which generated this result tra nsmitted reference range : <=0.2. The reference r christiano was not used to int erpret this result as normal/abnormal . [facility] HospitalYukawguQQDOXZTNYG6844-16-21 13:17:00 Test Item Value Reference Range Interpretation Comments WBC (test code = WBC) 7.5 3.7-10.4 [place] 963423-02-22 13:17:00 Test Item Value Reference Range Interpretation Comments RBC (test code = RBC) 3.30 4.20-5.40 [place] 963423-02-22 13:17:00 Test Item Value Reference Range Interpretation Comments Hgb (test code = Hgb) 9.9 12.0-16.0 [place] [address]-02-22 13:17:00 Test Item Value Reference Range Interpretation Comments Hct (test code = Hct) 30.3 36.0-48.0 [place] 963423-02-22 13:17:00 Test Item Value Reference Range Interpretation Comments MCV (test code = MCV) 91.8 80.0-98.0 [place] [address]-02-22 13:17:00 Test Item Value Reference Range Interpretation Comments MCH (test code = MCH) 30.0 pg 27.0-31.0 [place] 963423-02-22 13:17:00 Test Item Value Reference Range Interpretation Comments MCHC (test code = MCHC) 32.7 32.0-36.0 [place] 963423-02-22 13:17:00 Test Item Value Reference Range Interpretation Comments RDW (test code = RDW) 14.4 11.5-14.5 [place] 963423-02-22 13:17:00 Test Item Value Reference Range Interpretation Comments Platelet (test code = Platelet) 136 133-450 [facility] HospitalUetetleKQMDPSXBLU8439-88-98 13:17:00 Test Item Value Reference Range Interpretation Comments MPV (test code = MPV) 8.7 7.4-10.4 [place] [address]-02-22 13:17:00 Test Item Value Reference Range Interpretation Comments Segs (test code = Segs) 54.4 45.0-75.0 [place] [address]-02-22 13:17:00 Test Item Value Reference Range Interpretation Comments Lymphocytes (test code = Lymphocytes) 29.3 20.0-40.0 [place] [address]-02-22 13:17:00 Test Item Value Reference Range Interpretation Comments Monocytes (test code = Monocytes) 10.5 2.0-12.0 [place] 963423-02-22 13:17:00 Test Item Value Reference Range Interpretation Comments Eosinophils (test code = 5.0 See_Comment [A utomated message] The Eosinophils) system which ge nerated this result tra nsmitted reference range : <=4.0. The reference r christiano was not used to int erpret this result as normal/abnormal . [place] 963423-02-22 13:17:00 Test Item Value Reference Range Interpretation Comments Basophils (test code = 0.8 See_Comment [Aut omated message] The Basophils) system which ge nerated this result tra nsmitted reference range : <=1.0. The reference r christiano was not used to int erpret this result as normal/abnormal . [place] 963423-02-22 13:17:00 Test Item Value Reference Range Interpretation Comments Neutrophils # (test code = Neutrophils 4.1 1.5-8.1 #) [place] 963423-02-22 13:17:00 Test Item Value Reference Range Interpretation Comments Lymphocytes # (test code = Lymphocytes 2.2 1.0-5.5 #) [place] 963423-02-22 13:17:00 Test Item Value Reference Range Interpretation Comments Monocytes # (test code 0.8 See_Comment [Aut omated message] The = Monocytes #) system which generated this result tra nsmitted reference range : <=0.8. The reference r christiano was not used to int erpret this result as normal/abnormal . [place] 963423-02-22 13:17:00 Test Item Value Reference Range Interpretation Comments Eosinophils # (test code 0.4 See_Comment [A utomated message] The = Eosinophils #) system whic h generated this result tra nsmitted reference range : <=0.5. The reference r christiano was not used to int erpret this result as normal/abnormal . [place] 963423-02-22 13:17:00 Test Item Value Reference Range Interpretation Comments Basophils # (test code 0.1 See_Comment [Aut omated message] The = Basophils #) system which generated this result tra nsmitted reference range : <=0.2. The reference r christiano was not used to int erpret this result as normal/abnormal . [place] 963423-02-22 13:17:00 Test Item Value Reference Range Interpretation Comments WBC (test code = WBC) 7.5 3.7-10.4 [facility] HospitalGrlghkzZPBWACLBCB6501-61-82 13:17:00 Test Item Value Reference Range Interpretation Comments RBC (test code = RBC) 3.30 4.20-5.40 [facility] HospitalTqnsabwWOACLVKMAL2385-30-51 13:17:00 Test Item Value Reference Range Interpretation Comments Hgb (test code = Hgb) 9.9 12.0-16.0 [facility] HospitalDpnirtlNPWLGVLFOC8963-53-57 13:17:00 Test Item Value Reference Range Interpretation Comments Hct (test code = Hct) 30.3 36.0-48.0 [facility] HospitalLmbzjqsCWCAKBYDCQ6861-30-35 13:17:00 Test Item Value Reference Range Interpretation Comments MCV (test code = MCV) 91.8 80.0-98.0 [facility] HospitalMwdvsmqGYTGHLVBZT0998-49-48 13:17:00 Test Item Value Reference Range Interpretation Comments MCH (test code = MCH) 30.0 pg 27.0-31.0 [facility] HospitalHpjhttlRSSCVEYZHV3907-34-59 13:17:00 Test Item Value Reference Range Interpretation Comments MCHC (test code = MCHC) 32.7 32.0-36.0 [facility] HospitalYxvuzkrXNZXOANECW2990-77-34 13:17:00 Test Item Value Reference Range Interpretation Comments RDW (test code = RDW) 14.4 11.5-14.5 [facility] HospitalXnoiiwoBYNCLMLTFP2160-08-71 13:17:00 Test Item Value Reference Range Interpretation Comments Platelet (test code = Platelet) 136 133-450 [facility] HospitalBgtpgifINNLYPTILP4017-63-34 13:17:00 Test Item Value Reference Range Interpretation Comments MPV (test code = MPV) 8.7 7.4-10.4 [facility]PARATHYROID NSWFXPM4798-16-04 13:17:00 Test Item Value Reference Range Interpretation Comments Ca Ion WB (test code = Ca Ion WB) 1.06 1.05-1.25 [facility]RO[facility] DRFMHFV7923-84-49 13:17:00 Test Item Value Reference Range Interpretation Comments Ca Ion at pH 7.4 WB (test code = Ca Ion 1.03 1.05-1.25 at pH 7.4 WB) [facility]2023-02-22 13:17:00 Test Item Value Reference Range Interpretation Comments Glucose Lvl (test code = Glucose Lvl) 65 70-99 [place] 457353-02-22 13:17:00 Test Item Value Reference Range Interpretation Comments BUN (test code = BUN) 39 7-22 [place] 457353-02-22 13:17:00 Test Item Value Reference Range Interpretation Comments Creatinine Lvl (test code = Creatinine 2.03 0.50-1.40 Lvl) [place] 457353-02-22 13:17:00 Test Item Value Reference Range Interpretation Comments Sodium Lvl (test code = Sodium Lvl) 139 135-145 [place] 457353-02-22 13:17:00 Test Item Value Reference Range Interpretation Comments Potassium Lvl (test code = Potassium 4.7 3.5-5.1 Lvl) [facility]2023-02-22 13:17:00 Test Item Value Reference Range Interpretation Comments Chloride Lvl (test code = Chloride Lvl) 107 95-109 [place] 457353-02-22 13:17:00 Test Item Value Reference Range Interpretation Comments CO2 (test code = CO2) 26 24-32 [place] 457353-02-22 13:17:00 Test Item Value Reference Range Interpretation Comments Calcium Lvl (test code = Calcium Lvl) 8.1 8.5-10.5 [facility]2023-02-22 13:17:00 Test Item Value Reference Range Interpretation Comments AGAP (test code = AGAP) 10.7 10.0-20.0 [facility]2023-02-22 13:17:00 Test Item Value Reference Range Interpretation Comments eGFR (test code = eGFR) 24 [place] 457353-02-22 13:17:00 Test Item Value Reference Range Interpretation Comments Magnesium Lvl (test code = Magnesium 2.7 1.8-2.4 Lvl) [place] 457353-02-22 13:17:00 Test Item Value Reference Range Interpretation Comments Phosphorus (test code = Phosphorus) 3.9 2.5-4.5 [place] 922233-02-22 13:17:00 Test Item Value Reference Range Interpretation Comments Glucose Lvl (test code = Glucose Lvl) 65 70-99 [place] 922233-02-22 13:17:00 Test Item Value Reference Range Interpretation Comments BUN (test code = BUN) 39 7-22 [facility] TexasYuhuaweRUCULGNKY6616-10-94 13:17:00 Test Item Value Reference Range Interpretation Comments Creatinine Lvl (test code = Creatinine 2.03 0.50-1.40 Lvl) [facility] TexasXqmqkmlQBSYKBJTB6515-97-38 13:17:00 Test Item Value Reference Range Interpretation Comments Sodium Lvl (test code = Sodium Lvl) 139 135-145 [facility] TexasOdyxvuaTDQWUIQWR4912-28-03 13:17:00 Test Item Value Reference Range Interpretation Comments Potassium Lvl (test code = Potassium 4.7 3.5-5.1 Lvl) [facility] TexasObsxntaMQNVPYUIM0750-07-78 13:17:00 Test Item Value Reference Range Interpretation Comments Chloride Lvl (test code = Chloride Lvl) 107 95-109 [facility] TexasIywpnjvCDZHFSFUP9081-43-36 13:17:00 Test Item Value Reference Range Interpretation Comments CO2 (test code = CO2) 26 24-32 [facility] TexasHaojzuiTWFEFVHLM1252-51-80 13:17:00 Test Item Value Reference Range Interpretation Comments Calcium Lvl (test code = Calcium Lvl) 8.1 8.5-10.5 [facility] TexasUcbfctpUHPVZTDNU6742-44-51 13:17:00 Test Item Value Reference Range Interpretation Comments AGAP (test code = AGAP) 10.7 10.0-20.0 [facility] TexasBeyjsrwZKYEJZDPS6523-09-57 13:17:00 Test Item Value Reference Range Interpretation Comments eGFR (test code = eGFR) 24 [facility] TexasKltrppdRWRMQPBIO4304-44-52 13:17:00 Test Item Value Reference Range Interpretation Comments Ca Ion WB (test code = Ca Ion WB) 1.06 1.05-1.25 [facility] TexasQsdlxbdETYQBLVFI0007-03-02 13:17:00 Test Item Value Reference Range Interpretation Comments Ca Ion at pH 7.4 WB (test code = Ca Ion 1.03 1.05-1.25 at pH 7.4 WB) [facility] TexasLjqzyqoYOZTNXDZN4487-13-07 13:17:00 Test Item Value Reference Range Interpretation Comments Magnesium Lvl (test code = Magnesium 2.7 1.8-2.4 Lvl) [facility] TexasQuhhuadAHTUBXBEV1471-23-21 13:17:00 Test Item Value Reference Range Interpretation Comments Phosphorus (test code = Phosphorus) 3.9 2.5-4.5 [place] 963423-02-22 13:17:00 Test Item Value Reference Range Interpretation Comments Segs (test code = Segs) 54.4 45.0-75.0 [place] 963423-02-22 13:17:00 Test Item Value Reference Range Interpretation Comments Lymphocytes (test code = Lymphocytes) 29.3 20.0-40.0 [place] 963423-02-22 13:17:00 Test Item Value Reference Range Interpretation Comments Monocytes (test code = Monocytes) 10.5 2.0-12.0 [place] 963423-02-22 13:17:00 Test Item Value Reference Range Interpretation Comments Eosinophils (test code = Eosinophils) 5.0 <=4.0 [place] 963423-02-22 13:17:00 Test Item Value Reference Range Interpretation Comments Basophils (test code = Basophils) 0.8 <=1.0 [place] [address]-02-22 13:17:00 Test Item Value Reference Range Interpretation Comments Neutrophils # (test code = Neutrophils 4.1 1.5-8.1 #) [facility] HospitalHtoujndDFNCOWONYA0402-65-00 13:17:00 Test Item Value Reference Range Interpretation Comments Lymphocytes # (test code = Lymphocytes 2.2 1.0-5.5 #) [facility]bzkmjLYPDKTVAOM6127-99-53 13:17:00 Test Item Value Reference Range Interpretation Comments Monocytes # (test code = Monocytes #) 0.8 <=0.8 [place] [address]-02-22 13:17:00 Test Item Value Reference Range Interpretation Comments Eosinophils # (test code = Eosinophils 0.4 <=0.5 #) [place] 963423-02-22 13:17:00 Test Item Value Reference Range Interpretation Comments Basophils # (test code = Basophils #) 0.1 <=0.2 [place] [address]-02-22 13:17:00 Test Item Value Reference Range Interpretation Comments WBC (test code = WBC) 7.5 3.7-10.4 [place] 963423-02-22 13:17:00 Test Item Value Reference Range Interpretation Comments RBC (test code = RBC) 3.30 4.20-5.40 [place] 963423-02-22 13:17:00 Test Item Value Reference Range Interpretation Comments Hgb (test code = Hgb) 9.9 12.0-16.0 [place] 963423-02-22 13:17:00 Test Item Value Reference Range Interpretation Comments Hct (test code = Hct) 30.3 36.0-48.0 [facility]PsbgwhnYAMBIMQKRH6192-95-95 13:17:00 Test Item Value Reference Range Interpretation Comments MCV (test code = MCV) 91.8 80.0-98.0 [place] 963423-02-22 13:17:00 Test Item Value Reference Range Interpretation Comments MCH (test code = MCH) 30.0 pg 27.0-31.0 [facility] HospitalUhpodpuDQWYFXNORO8237-51-04 13:17:00 Test Item Value Reference Range Interpretation Comments MCHC (test code = MCHC) 32.7 32.0-36.0 [facility] HospitalKabhqvmISOKUMIEUO4852-56-62 13:17:00 Test Item Value Reference Range Interpretation Comments RDW (test code = RDW) 14.4 11.5-14.5 [facility] HospitalPoragcqVYYNMOAUNU9901-31-59 13:17:00 Test Item Value Reference Range Interpretation Comments Platelet (test code = Platelet) 136 133-450 [facility] HospitalRadocknJYNAXWDFOS0775-54-88 13:17:00 Test Item Value Reference Range Interpretation Comments MPV (test code = MPV) 8.7 7.4-10.4 [place] 963423-02-22 13:17:00 Test Item Value Reference Range Interpretation Comments Segs (test code = Segs) 54.4 45.0-75.0 [place] 963423-02-22 13:17:00 Test Item Value Reference Range Interpretation Comments Lymphocytes (test code = Lymphocytes) 29.3 20.0-40.0 [place] 963423-02-22 13:17:00 Test Item Value Reference Range Interpretation Comments Monocytes (test code = Monocytes) 10.5 2.0-12.0 [place] 963423-02-22 13:17:00 Test Item Value Reference Range Interpretation Comments Eosinophils (test code = Eosinophils) 5.0 <=4.0 [facility] HospitalEaiefugWUGJJRRUPJ0889-35-23 13:17:00 Test Item Value Reference Range Interpretation Comments Basophils (test code = Basophils) 0.8 <=1.0 [place] [address]-02-22 13:17:00 Test Item Value Reference Range Interpretation Comments Neutrophils # (test code = Neutrophils 4.1 1.5-8.1 #) [place] 963423-02-22 13:17:00 Test Item Value Reference Range Interpretation Comments Lymphocytes # (test code = Lymphocytes 2.2 1.0-5.5 #) [place] 963423-02-22 13:17:00 Test Item Value Reference Range Interpretation Comments Monocytes # (test code = Monocytes #) 0.8 <=0.8 [place] [address]-02-22 13:17:00 Test Item Value Reference Range Interpretation Comments Eosinophils # (test code = Eosinophils 0.4 <=0.5 #) [place] 963423-02-22 13:17:00 Test Item Value Reference Range Interpretation Comments Basophils # (test code = Basophils #) 0.1 <=0.2 [place] [address]-02-22 13:17:00 Test Item Value Reference Range Interpretation Comments WBC (test code = WBC) 7.5 3.7-10.4 [place] 963423-02-22 13:17:00 Test Item Value Reference Range Interpretation Comments RBC (test code = RBC) 3.30 4.20-5.40 [place] [address]-02-22 13:17:00 Test Item Value Reference Range Interpretation Comments Hgb (test code = Hgb) 9.9 12.0-16.0 [place] [address]-02-22 13:17:00 Test Item Value Reference Range Interpretation Comments Hct (test code = Hct) 30.3 36.0-48.0 [place] [address]-02-22 13:17:00 Test Item Value Reference Range Interpretation Comments MCV (test code = MCV) 91.8 80.0-98.0 [place] [address]-02-22 13:17:00 Test Item Value Reference Range Interpretation Comments MCH (test code = MCH) 30.0 pg 27.0-31.0 [place] [address]-02-22 13:17:00 Test Item Value Reference Range Interpretation Comments MCHC (test code = MCHC) 32.7 32.0-36.0 [place] 963423-02-22 13:17:00 Test Item Value Reference Range Interpretation Comments RDW (test code = RDW) 14.4 11.5-14.5 [place] 963423-02-22 13:17:00 Test Item Value Reference Range Interpretation Comments Platelet (test code = Platelet) 136 133-450 [place] 963423-02-22 13:17:00 Test Item Value Reference Range Interpretation Comments MPV (test code = MPV) 8.7 7.4-10.4 [facility]2023-02-22 13:17:00 Test Item Value Reference Range Interpretation Comments Ca Ion WB (test code = Ca Ion WB) 1.06 1.05-1.25 [place] 529873-02-22 13:17:00 Test Item Value Reference Range Interpretation Comments Ca Ion at pH 7.4 WB (test code = Ca Ion 1.03 1.05-1.25 at pH 7.4 WB) [facility]2023-02-22 13:17:00 Test Item Value Reference Range Interpretation Comments Glucose Lvl (test code = Glucose Lvl) 65 70-99 [place] 457353-02-22 13:17:00 Test Item Value Reference Range Interpretation Comments BUN (test code = BUN) 39 7-22 [place] 457353-02-22 13:17:00 Test Item Value Reference Range Interpretation Comments Creatinine Lvl (test code = Creatinine 2.03 0.50-1.40 Lvl) [place] 457353-02-22 13:17:00 Test Item Value Reference Range Interpretation Comments Sodium Lvl (test code = Sodium Lvl) 139 135-145 [place] 457353-02-22 13:17:00 Test Item Value Reference Range Interpretation Comments Potassium Lvl (test code = Potassium 4.7 3.5-5.1 Lvl) [place] 457353-02-22 13:17:00 Test Item Value Reference Range Interpretation Comments Chloride Lvl (test code = Chloride Lvl) 107 95-109 [place] 457353-02-22 13:17:00 Test Item Value Reference Range Interpretation Comments CO2 (test code = CO2) 26 24-32 [place] 457353-02-22 13:17:00 Test Item Value Reference Range Interpretation Comments Calcium Lvl (test code = Calcium Lvl) 8.1 8.5-10.5 [place] 457353-02-22 13:17:00 Test Item Value Reference Range Interpretation Comments AGAP (test code = AGAP) 10.7 10.0-20.0 [place] 457353-02-22 13:17:00 Test Item Value Reference Range Interpretation Comments eGFR (test code = eGFR) 24 [place] 457353-02-22 13:17:00 Test Item Value Reference Range Interpretation Comments Magnesium Lvl (test code = Magnesium 2.7 1.8-2.4 Lvl) [facility]2023-02-22 13:17:00 Test Item Value Reference Range Interpretation Comments Phosphorus (test code = Phosphorus) 3.9 2.5-4.5 [place] 922233-02-22 13:17:00 Test Item Value Reference Range Interpretation Comments Glucose Lvl (test code = Glucose Lvl) 65 70-99 [place] 922233-02-22 13:17:00 Test Item Value Reference Range Interpretation Comments BUN (test code = BUN) 39 7-22 [place] 922233-02-22 13:17:00 Test Item Value Reference Range Interpretation Comments Creatinine Lvl (test code = Creatinine 2.03 0.50-1.40 Lvl) [place] 922233-02-22 13:17:00 Test Item Value Reference Range Interpretation Comments Sodium Lvl (test code = Sodium Lvl) 139 135-145 [place] 922233-02-22 13:17:00 Test Item Value Reference Range Interpretation Comments Potassium Lvl (test code = Potassium 4.7 3.5-5.1 Lvl) [place] [address]-02-22 13:17:00 Test Item Value Reference Range Interpretation Comments Chloride Lvl (test code = Chloride Lvl) 107 95-109 [place] 922233-02-22 13:17:00 Test Item Value Reference Range Interpretation Comments CO2 (test code = CO2) - [place] 922233-02-22 13:17:00 Test Item Value Reference Range Interpretation Comments Calcium Lvl (test code = Calcium Lvl) 8.1 8.5-10.5 [facility]WlrrfahNBKFEJOER3732-32-76 13:17:00 Test Item Value Reference Range Interpretation Comments AGAP (test code = AGAP) 10.7 10.0-20.0 [facility] TexasDvigorpSCXVWJYTI5999-54-46 13:17:00 Test Item Value Reference Range Interpretation Comments eGFR (test code = eGFR) 24 [facility] TexasIhfycilKHCLXASUV2205-35-14 13:17:00 Test Item Value Reference Range Interpretation Comments Ca Ion WB (test code = Ca Ion WB) 1.06 1.05-1.25 [facility] TexasMoltnbuHJLSKNEPU6175-12-10 13:17:00 Test Item Value Reference Range Interpretation Comments Ca Ion at pH 7.4 WB (test code = Ca Ion 1.03 1.05-1.25 at pH 7.4 WB) [facility] TexasAgfxmtgRLYZYPNZY0431-89-76 13:17:00 Test Item Value Reference Range Interpretation Comments Magnesium Lvl (test code = Magnesium 2.7 1.8-2.4 Lvl) [facility] TexasCvzlooyIOVCJOFNL6426-12-45 13:17:00 Test Item Value Reference Range Interpretation Comments Phosphorus (test code = Phosphorus) 3.9 2.5-4.5 [facility] HospitalYkptphsDRWGABKHPZ6678-36-76 13:17:00 Test Item Value Reference Range Interpretation Comments Segs (test code = Segs) 54.4 45.0-75.0 [facility] HospitalUimtghbXMDSEPDFIX0395-06-95 13:17:00 Test Item Value Reference Range Interpretation Comments Lymphocytes (test code = Lymphocytes) 29.3 20.0-40.0 [place] 963423-02-22 13:17:00 Test Item Value Reference Range Interpretation Comments Monocytes (test code = Monocytes) 10.5 2.0-12.0 [place] 963423-02-22 13:17:00 Test Item Value Reference Range Interpretation Comments Eosinophils (test code = Eosinophils) 5.0 <=4.0 [place] 963423-02-22 13:17:00 Test Item Value Reference Range Interpretation Comments Basophils (test code = Basophils) 0.8 <=1.0 [place] 963423-02-22 13:17:00 Test Item Value Reference Range Interpretation Comments Neutrophils # (test code = Neutrophils 4.1 1.5-8.1 #) [place] 963423-02-22 13:17:00 Test Item Value Reference Range Interpretation Comments Lymphocytes # (test code = Lymphocytes 2.2 1.0-5.5 #) [facility] HospitalDlqhmtbMWSCWXUEVN7931-20-37 13:17:00 Test Item Value Reference Range Interpretation Comments Monocytes # (test code = Monocytes #) 0.8 <=0.8 [place] [address]-02-22 13:17:00 Test Item Value Reference Range Interpretation Comments Eosinophils # (test code = Eosinophils 0.4 <=0.5 #) [place] 963423-02-22 13:17:00 Test Item Value Reference Range Interpretation Comments Basophils # (test code = Basophils #) 0.1 <=0.2 [place] 963423-02-22 13:17:00 Test Item Value Reference Range Interpretation Comments WBC (test code = WBC) 7.5 3.7-10.4 [place] 963423-02-22 13:17:00 Test Item Value Reference Range Interpretation Comments RBC (test code = RBC) 3.30 4.20-5.40 [place] 963423-02-22 13:17:00 Test Item Value Reference Range Interpretation Comments Hgb (test code = Hgb) 9.9 12.0-16.0 [place] [address]-02-22 13:17:00 Test Item Value Reference Range Interpretation Comments Hct (test code = Hct) 30.3 36.0-48.0 [place] [address]-02-22 13:17:00 Test Item Value Reference Range Interpretation Comments MCV (test code = MCV) 91.8 80.0-98.0 [place] [address]-02-22 13:17:00 Test Item Value Reference Range Interpretation Comments MCH (test code = MCH) 30.0 pg 27.0-31.0 [place] [address]-02-22 13:17:00 Test Item Value Reference Range Interpretation Comments MCHC (test code = MCHC) 32.7 32.0-36.0 [place] 963423-02-22 13:17:00 Test Item Value Reference Range Interpretation Comments RDW (test code = RDW) 14.4 11.5-14.5 [place] [address]-02-22 13:17:00 Test Item Value Reference Range Interpretation Comments Platelet (test code = Platelet) 136 133-450 [place] 963423-02-22 13:17:00 Test Item Value Reference Range Interpretation Comments MPV (test code = MPV) 8.7 7.4-10.4 [place] 963423-02-22 13:17:00 Test Item Value Reference Range Interpretation Comments Segs (test code = Segs) 54.4 45.0-75.0 [place] 963423-02-22 13:17:00 Test Item Value Reference Range Interpretation Comments Lymphocytes (test code = Lymphocytes) 29.3 20.0-40.0 [place] [address]-02-22 13:17:00 Test Item Value Reference Range Interpretation Comments Monocytes (test code = Monocytes) 10.5 2.0-12.0 [place] 963423-02-22 13:17:00 Test Item Value Reference Range Interpretation Comments Eosinophils (test code = Eosinophils) 5.0 <=4.0 [place] 963423-02-22 13:17:00 Test Item Value Reference Range Interpretation Comments Basophils (test code = Basophils) 0.8 <=1.0 [place] [address]-02-22 13:17:00 Test Item Value Reference Range Interpretation Comments Neutrophils # (test code = Neutrophils 4.1 1.5-8.1 #) [facility] HospitalGvlwirqDRVVKPWYKN6288-13-53 13:17:00 Test Item Value Reference Range Interpretation Comments Lymphocytes # (test code = Lymphocytes 2.2 1.0-5.5 #) [place] 963423-02-22 13:17:00 Test Item Value Reference Range Interpretation Comments Monocytes # (test code = Monocytes #) 0.8 <=0.8 [place] [address]-02-22 13:17:00 Test Item Value Reference Range Interpretation Comments Eosinophils # (test code = Eosinophils 0.4 <=0.5 #) [place] [address]-02-22 13:17:00 Test Item Value Reference Range Interpretation Comments Basophils # (test code = Basophils #) 0.1 <=0.2 [place] [address]-02-22 13:17:00 Test Item Value Reference Range Interpretation Comments WBC (test code = WBC) 7.5 3.7-10.4 [facility]FnwobfgRNMWDKLUVC9323-07-44 13:17:00 Test Item Value Reference Range Interpretation Comments RBC (test code = RBC) 3.30 4.20-5.40 [facility] HospitalLfdikhvPRZLIITGNW2603-42-71 13:17:00 Test Item Value Reference Range Interpretation Comments Hgb (test code = Hgb) 9.9 12.0-16.0 [facility] HospitalFdenokhLMQEJDTKNZ1111-69-55 13:17:00 Test Item Value Reference Range Interpretation Comments Hct (test code = Hct) 30.3 36.0-48.0 [facility] HospitalTwttdwrWXOURZGNJI9778-28-34 13:17:00 Test Item Value Reference Range Interpretation Comments MCV (test code = MCV) 91.8 80.0-98.0 [facility] HospitalHkiabsmZQGSIFWZGG7126-31-89 13:17:00 Test Item Value Reference Range Interpretation Comments MCH (test code = MCH) 30.0 pg 27.0-31.0 [facility] HospitalUdfdwetFOBGTOMBXH9343-74-86 13:17:00 Test Item Value Reference Range Interpretation Comments MCHC (test code = MCHC) 32.7 32.0-36.0 [facility] HospitalNczjmjzCTPZQXMSKJ1483-13-28 13:17:00 Test Item Value Reference Range Interpretation Comments RDW (test code = RDW) 14.4 11.5-14.5 [facility] HospitalVtwgiqnMLRAKYEFXL6040-98-20 13:17:00 Test Item Value Reference Range Interpretation Comments Platelet (test code = Platelet) 136 133-450 [facility] HospitalJraufvxZTAOQGWBUX4080-63-50 13:17:00 Test Item Value Reference Range Interpretation Comments MPV (test code = MPV) 8.7 7.4-10.4 [facility] CenterPARATHYROID KGRUDJE7076-23-10 13:17:00 Test Item Value Reference Range Interpretation Comments Ca Ion WB (test code = Ca Ion WB) 1.06 1.05-1.25 [facility] AYZLQPB7769-67-82 13:17:00 Test Item Value Reference Range Interpretation Comments Ca Ion at pH 7.4 WB (test code = Ca Ion 1.03 1.05-1.25 at pH 7.4 WB) [facility] CenterTncooeyPCWAVOTQJ2858-33-49 15:39:00 Test Item Value Reference Range Interpretation Comments U Amph Scr (test code Negative *NA*(11/21/22 = U Amph Scr) 9:39 AM) [facility] YxtxhfeHPXLVIVOB0480-67-57 15:39:00 Test Item Value Reference Range Interpretation Comments U Analilia Scr (test code Positive *ABN*(11/21/22 = U Analilia Scr) 9:39 AM) [facility] MtkthmxESEUCDXXP7296-39-63 15:39:00 Test Item Value Reference Range Interpretation Comments U Benzodiaz Scr (test Negative *NA*(11/21/22 code = U Benzodiaz Scr) 9:39 AM) [facility] KmzsuzbDJOHTCKSU4718-58-58 15:39:00 Test Item Value Reference Range Interpretation Comments U Cocaine Scr (test Negative *NA*(11/21/22 code = U Cocaine Scr) 9:39 AM) [facility] XucnxrgVMIQLOZQU2835-81-03 15:39:00 Test Item Value Reference Range Interpretation Comments U Cannab Scr (test Negative *NA*(11/21/22 code = U Cannab Scr) 9:39 AM) [facility] EeqnvrtYFKEFTBNU6566-23-60 15:39:00 Test Item Value Reference Range Interpretation Comments U Opiate Scr (test Positive *ABN*(11/21/22 code = U Opiate Scr) 9:39 AM) [facility] MsiftcvLGXFBVCKN5599-91-22 15:39:00 Test Item Value Reference Range Interpretation Comments U Phencyclidine Scr (test Negative code = U Phencyclidine *NA*(11/21/22 9:39 Scr) AM) [facility]ZdcjttcAGWZBVGTX6542-75-72 15:39:00 Test Item Value Reference Range Interpretation Comments UDS Note (test code = See Note (11/21/22 9:39 UDS Note) AM) [facility]aleZkfzortNAEXZUXLPM8439-48-59 15:39:00 Test Item Value Reference Range Interpretation Comments Coronavirus (COVID-19) Not Detected (11/21/22 JONATHAN (test code = 9:39 AM) Coronavirus (COVID-19) JONATHAN) [facility] [id number] 15:39:00 Test Item Value Reference Range Interpretation Comments UA Color (test code = Light Yellow UA Color) *NA*(11/21/22 9:39 AM) [facility] [id number] 15:39:00 Test Item Value Reference Range Interpretation Comments UA Turbidity (test code = Clear (11/21/22 9:39 UA Turbidity) AM) [facility] AND [id number] 15:39:00 Test Item Value Reference Range Interpretation Comments UA Spec Grav (test code = UA Spec 1.014 1 Grav) [facility] AND [id number] 15:39:00 Test Item Value Reference Range Interpretation Comments UA pH (test code = UA pH) 6.0 1 5.0-8.0 [facility] AND [id number] 15:39:00 Test Item Value Reference Range Interpretation Comments UA Protein (test code = UA Protein) 30 mg/dL [facility] AND [id number] 15:39:00 Test Item Value Reference Range Interpretation Comments UA Glucose (test code = UA Negative mg/dL Glucose) [facility] AND [id number] 15:39:00 Test Item Value Reference Range Interpretation Comments UA Ketones (test code = UA Negative mg/dL Ketones) [facility] AND [id number] 15:39:00 Test Item Value Reference Range Interpretation Comments UA Bili (test code = Negative *NA*(11/21/22 UA Bili) 9:39 AM) [facility] AND [id number] 15:39:00 Test Item Value Reference Range Interpretation Comments UA Blood (test code = Negative (11/21/22 9:39 UA Blood) AM) [facility] AND [id number] 15:39:00 Test Item Value Reference Range Interpretation Comments UA Urobilinogen (test code = UA no gt 0.1-1.0 Urobilinogen) [facility] AND [id number] 15:39:00 Test Item Value Reference Range Interpretation Comments UA Nitrite (test code Negative (11/21/22 9:39 = UA Nitrite) AM) [facility] AND [id number] 15:39:00 Test Item Value Reference Range Interpretation Comments UA Leuk Est (test Negative (11/21/22 9:39 code = UA Leuk Est) AM) [facility] AND [id number] 15:39:00 Test Item Value Reference Range Interpretation Comments UA Sq Epi (test code = UA Sq Occasional /LPF Epi) [facility] [id number] 15:39:00 Test Item Value Reference Range Interpretation Comments UA WBC (test code = no gt See_Comment [Automa sheba message] The UA WBC) system which ge nerated this result transmit sheba reference range : <=5. The reference range was not used to interpr et this result as edy l/abnormal. [facility]lineannUR[facility] AND [id number] 15:39:00 Test Item Value Reference Range Interpretation Comments UA RBC (test code = no gt See_Comment [Automa sheba message] The UA RBC) system which ge nerated this result transmit sheba reference range : <=2. The reference range was not used to interpr et this result as edy l/abnormal. [facility]aleQvrnadyMVEMZAXOJ2733-08-60 15:39:00 Test Item Value Reference Range Interpretation Comments U Amph Scr (test code Negative *NA*(11/21/22 = U Amph Scr) 9:39 AM) [facility] CenterVkaqwgfLGROBOEEF3766-56-33 15:39:00 Test Item Value Reference Range Interpretation Comments U Analilia Scr (test code Positive *ABN*(11/21/22 = U Analilia Scr) 9:39 AM) [facility]aleCemodazFDDXLDDNR8622-38-31 15:39:00 Test Item Value Reference Range Interpretation Comments U Benzodiaz Scr (test Negative *NA*(11/21/22 code = U Benzodiaz Scr) 9:39 AM) [facility] CenterIxuibncUUJMLUITM7272-96-11 15:39:00 Test Item Value Reference Range Interpretation Comments U Cocaine Scr (test Negative *NA*(11/21/22 code = U Cocaine Scr) 9:39 AM) [facility]aleUdoarkwBKLRZFEVT4094-10-32 15:39:00 Test Item Value Reference Range Interpretation Comments U Cannab Scr (test Negative *NA*(11/21/22 code = U Cannab Scr) 9:39 AM) [facility] CenterWbswpnaDFKCMTWWK9776-97-06 15:39:00 Test Item Value Reference Range Interpretation Comments U Opiate Scr (test Positive *ABN*(11/21/22 code = U Opiate Scr) 9:39 AM) [facility] CenterCcafqqcUCMDHAJPN2204-66-72 15:39:00 Test Item Value Reference Range Interpretation Comments U Phencyclidine Scr (test Negative code = U Phencyclidine *NA*(11/21/22 9:39 Scr) AM) [facility] FkxlhgpGRXACUUQI5717-67-80 15:39:00 Test Item Value Reference Range Interpretation Comments UDS Note (test code = See Note (11/21/22 9:39 UDS Note) AM) [facility] [id number] 15:39:00 Test Item Value Reference Range Interpretation Comments Coronavirus (COVID-19) Not Detected (11/21/22 JONATHAN (test code = 9:39 AM) Coronavirus (COVID-19) JONATHAN) [facility] AND [id number] 15:39:00 Test Item Value Reference Range Interpretation Comments UA Color (test code = Light Yellow UA Color) *NA*(11/21/22 9:39 AM) [facility] AND [id number] 15:39:00 Test Item Value Reference Range Interpretation Comments UA Turbidity (test code = Clear (11/21/22 9:39 UA Turbidity) AM) [facility] AND [id number] 15:39:00 Test Item Value Reference Range Interpretation Comments UA Spec Grav (test code = UA Spec 1.014 1 Grav) [facility] AND [id number] 15:39:00 Test Item Value Reference Range Interpretation Comments UA pH (test code = UA pH) 6.0 1 5.0-8.[address] [facility] AND [id number] 15:39:00 Test Item Value Reference Range Interpretation Comments UA Protein (test code = UA Protein) 30 mg/dL [facility] AND [id number] 15:39:00 Test Item Value Reference Range Interpretation Comments UA Glucose (test code = UA Negative mg/dL Glucose) [facility] AND [id number] 15:39:00 Test Item Value Reference Range Interpretation Comments UA Ketones (test code = UA Negative mg/dL Ketones) [facility] AND [id number] 15:39:00 Test Item Value Reference Range Interpretation Comments UA Bili (test code = Negative *NA*(11/21/22 UA Bili) 9:39 AM) [facility] AND [id number] 15:39:00 Test Item Value Reference Range Interpretation Comments UA Blood (test code = Negative (11/21/22 9:39 UA Blood) AM) [facility] RaulURINE AND [id number] 15:39:00 Test Item Value Reference Range Interpretation Comments UA Urobilinogen (test code = UA no gt 0.1-1.0 Urobilinogen) [facility] [id number] 15:39:00 Test Item Value Reference Range Interpretation Comments UA Nitrite (test code Negative (11/21/22 9:39 = UA Nitrite) AM) [facility] AND [id number] 15:39:00 Test Item Value Reference Range Interpretation Comments UA Leuk Est (test Negative (11/21/22 9:39 code = UA Leuk Est) AM) [facility] ([facility]) AND [id number] 15:39:00 Test Item Value Reference Range Interpretation Comments UA Sq Epi (test code = UA Sq Occasional /LPF Epi) [facility] AND [id number] 15:39:00 Test Item Value Reference Range Interpretation Comments UA WBC (test code = no gt See_Comment [Automa sheba message] The UA WBC) system which ge nerated this result transmit sheba reference range : <=5. The reference range was not used to interpr et this result as edy l/abnormal. [facility] AND [id number] 15:39:00 Test Item Value Reference Range Interpretation Comments UA RBC (test code = no gt See_Comment [Automa sheba message] The UA RBC) system which ge nerated this result transmit sheba reference range : <=2. The reference range was not used to interpr et this result as edy l/abnormal. [facility] [id number] 15:39:00 Test Item Value Reference Range Interpretation Comments U Amph Scr (test code Negative *NA*(11/21/22 = U Amph Scr) 9:39 AM) [facility] [id number] 15:39:00 Test Item Value Reference Range Interpretation Comments U Analilia Scr (test code Positive *ABN*(11/21/22 = U Analilia Scr) 9:39 AM) [facility] [id number] 15:39:00 Test Item Value Reference Range Interpretation Comments U Benzodiaz Scr (test Negative *NA*(11/21/22 code = U Benzodiaz Scr) 9:39 AM) [facility] [id number] 15:39:00 Test Item Value Reference Range Interpretation Comments U Cocaine Scr (test Negative *NA*(11/21/22 code = U Cocaine Scr) 9:39 AM) [facility] [id number] 15:39:00 Test Item Value Reference Range Interpretation Comments U Cannab Scr (test Negative *NA*(11/21/22 code = U Cannab Scr) 9:39 AM) [facility] [id number] 15:39:00 Test Item Value Reference Range Interpretation Comments U Opiate Scr (test Positive *ABN*(11/21/22 code = U Opiate Scr) 9:39 AM) [facility] [id number] 15:39:00 Test Item Value Reference Range Interpretation Comments U Phencyclidine Scr (test Negative code = U Phencyclidine *NA*(11/21/22 9:39 Scr) AM) [facility] [id number] 15:39:00 Test Item Value Reference Range Interpretation Comments UDS Note (test code = See Note (11/21/22 9:39 UDS Note) AM) [facility] [id number] 15:39:00 Test Item Value Reference Range Interpretation Comments U Amph Scr (test code Negative *NA*(11/21/22 = U Amph Scr) 9:39 AM) [facility] [id number] 15:39:00 Test Item Value Reference Range Interpretation Comments U Analilia Scr (test code Positive *ABN*(11/21/22 = U Analilia Scr) 9:39 AM) [facility] [id number] 15:39:00 Test Item Value Reference Range Interpretation Comments U Benzodiaz Scr (test Negative *NA*(11/21/22 code = U Benzodiaz Scr) 9:39 AM) [facility] [id number] 15:39:00 Test Item Value Reference Range Interpretation Comments U Cocaine Scr (test Negative *NA*(11/21/22 code = U Cocaine Scr) 9:39 AM) [facility] [id number] 15:39:00 Test Item Value Reference Range Interpretation Comments U Cannab Scr (test Negative *NA*(11/21/22 code = U Cannab Scr) 9:39 AM) [facility] [id number] 15:39:00 Test Item Value Reference Range Interpretation Comments U Opiate Scr (test Positive *ABN*(11/21/22 code = U Opiate Scr) 9:39 AM) [facility] [id number] 15:39:00 Test Item Value Reference Range Interpretation Comments U Phencyclidine Scr (test Negative code = U Phencyclidine *NA*(11/21/22 9:39 Scr) AM) [facility] [id number] 15:39:00 Test Item Value Reference Range Interpretation Comments UDS Note (test code = See Note (11/21/22 9:39 UDS Note) AM) [facility] [id number] 15:39:00 Test Item Value Reference Range Interpretation Comments Coronavirus (COVID-19) Not Detected (11/21/22 JONATHAN (test code = 9:39 AM) Coronavirus (COVID-19) JONATHAN) [facility] [id number] 15:39:00 Test Item Value Reference Range Interpretation Comments Coronavirus (COVID-19) Not Detected (11/21/22 JONATHAN (test code = 9:39 AM) Coronavirus (COVID-19) JONATHAN) [facility] [id number] 15:39:00 Test Item Value Reference Range Interpretation Comments UA Color (test code = Light Yellow UA Color) *NA*(11/21/22 9:39 AM) [facility] [id number] 15:39:00 Test Item Value Reference Range Interpretation Comments UA Turbidity (test code = Clear (11/21/22 9:39 UA Turbidity) AM) [facility] [id number] 15:39:00 Test Item Value Reference Range Interpretation Comments UA Spec Grav (test code = UA Spec 1.014 1 Grav) [facility] [id number] 15:39:00 Test Item Value Reference Range Interpretation Comments UA pH (test code = UA pH) 6.0 1 5.0-8.0 [facility] [id number] 15:39:00 Test Item Value Reference Range Interpretation Comments UA Protein (test code = UA Protein) 30 mg/dL [facility] [id number] 15:39:00 Test Item Value Reference Range Interpretation Comments UA Glucose (test code = UA Negative mg/dL Glucose) [facility] AND [id number] 15:39:00 Test Item Value Reference Range Interpretation Comments UA Ketones (test code = UA Negative mg/dL Ketones) [facility] AND [id number] 15:39:00 Test Item Value Reference Range Interpretation Comments UA Bili (test code = Negative *NA*(11/21/22 UA Bili) 9:39 AM) [facility] AND [id number] 15:39:00 Test Item Value Reference Range Interpretation Comments UA Blood (test code = Negative (11/21/22 9:39 UA Blood) AM) [facility] AND [id number] 15:39:00 Test Item Value Reference Range Interpretation Comments UA Urobilinogen (test code = UA no gt 0.1-1.0 Urobilinogen) [facility] AND [id number] 15:39:00 Test Item Value Reference Range Interpretation Comments UA Nitrite (test code Negative (11/21/22 9:39 = UA Nitrite) AM) [facility] AND [id number] 15:39:00 Test Item Value Reference Range Interpretation Comments UA Leuk Est (test Negative (11/21/22 9:39 code = UA Leuk Est) AM) [facility] AND [id number] 15:39:00 Test Item Value Reference Range Interpretation Comments UA Sq Epi (test code = UA Sq Occasional /LPF Epi) [facility] AND [id number] 15:39:00 Test Item Value Reference Range Interpretation Comments UA WBC (test code = no gt See_Comment [Automa sheba message] The UA WBC) system which ge nerated this result transmit sheba reference range : <=5. The reference range was not used to interpr et this result as edy l/abnormal. [facility] [id number] 15:39:00 Test Item Value Reference Range Interpretation Comments UA RBC (test code = no gt See_Comment [Automa sheba message] The UA RBC) system which ge nerated this result transmit sheba reference range : <=2. The reference range was not used to interpr et this result as edy l/abnormal. [facility] AND [id number] 15:39:00 Test Item Value Reference Range Interpretation Comments UA Color (test code = Light Yellow UA Color) *NA*(11/21/22 9:39 AM) [facility] AND [id number] 15:39:00 Test Item Value Reference Range Interpretation Comments UA Turbidity (test code = Clear (11/21/22 9:39 UA Turbidity) AM) [facility] AND [id number] 15:39:00 Test Item Value Reference Range Interpretation Comments UA Spec Grav (test code = UA Spec 1.014 1 Grav) [facility] AND [id number] 15:39:00 Test Item Value Reference Range Interpretation Comments UA pH (test code = UA pH) 6.0 1 5.0-8.0 [facility] AND [id number] 15:39:00 Test Item Value Reference Range Interpretation Comments UA Protein (test code = UA Protein) 30 mg/dL [facility] AND [id number] 15:39:00 Test Item Value Reference Range Interpretation Comments UA Glucose (test code = UA Negative mg/dL Glucose) [facility] AND [id number] 15:39:00 Test Item Value Reference Range Interpretation Comments UA Ketones (test code = UA Negative mg/dL Ketones) [facility] AND [id number] 15:39:00 Test Item Value Reference Range Interpretation Comments UA Bili (test code = Negative *NA*(11/21/22 UA Bili) 9:39 AM) [facility] AND [id number] 15:39:00 Test Item Value Reference Range Interpretation Comments UA Blood (test code = Negative (11/21/22 9:39 UA Blood) AM) [facility] AND [id number] 15:39:00 Test Item Value Reference Range Interpretation Comments UA Urobilinogen (test code = UA no gt 0.1-1.0 Urobilinogen) [facility] AND [id number] 15:39:00 Test Item Value Reference Range Interpretation Comments UA Nitrite (test code Negative (11/21/22 9:39 = UA Nitrite) AM) [facility] AND [id number] 15:39:00 Test Item Value Reference Range Interpretation Comments UA Leuk Est (test Negative (11/21/22 9:39 code = UA Leuk Est) AM) [facility] AND [id number] 15:39:00 Test Item Value Reference Range Interpretation Comments UA Sq Epi (test code = UA Sq Occasional /LPF Epi) [facility] AND [id number] 15:39:00 Test Item Value Reference Range Interpretation Comments UA WBC (test code = no gt See_Comment [Automa sheba message] The UA WBC) system which ge nerated this result transmit sheba reference range : <=5. The reference range was not used to interpr et this result as edy l/abnormal. [facility] AND [id number] 15:39:00 Test Item Value Reference Range Interpretation Comments UA RBC (test code = no gt See_Comment [Automa sheba message] The UA RBC) system which ge nerated this result transmit sheba reference range : <=2. The reference range was not used to interpr et this result as edy l/abnormal. [facility] [id number] 15:39:00 Test Item Value Reference Range Interpretation Comments U Amph Scr (test code Negative *NA*(11/21/22 = U Amph Scr) 9:39 AM) [facility] [id number] 15:39:00 Test Item Value Reference Range Interpretation Comments U Analilia Scr (test code Positive *ABN*(11/21/22 = U Analilia Scr) 9:39 AM) [facility] [id number] 15:39:00 Test Item Value Reference Range Interpretation Comments U Benzodiaz Scr (test Negative *NA*(11/21/22 code = U Benzodiaz Scr) 9:39 AM) [facility] [id number] 15:39:00 Test Item Value Reference Range Interpretation Comments U Cocaine Scr (test Negative *NA*(11/21/22 code = U Cocaine Scr) 9:39 AM) [facility] [id number] 15:39:00 Test Item Value Reference Range Interpretation Comments U Cannab Scr (test Negative *NA*(11/21/22 code = U Cannab Scr) 9:39 AM) [facility] [id number] 15:39:00 Test Item Value Reference Range Interpretation Comments U Opiate Scr (test Positive *ABN*(11/21/22 code = U Opiate Scr) 9:39 AM) [facility] [id number] 15:39:00 Test Item Value Reference Range Interpretation Comments U Phencyclidine Scr (test Negative code = U Phencyclidine *NA*(11/21/22 9:39 Scr) AM) [facility] [id number] 15:39:00 Test Item Value Reference Range Interpretation Comments UDS Note (test code = See Note (11/21/22 9:39 UDS Note) AM) [facility] [id number] 15:39:00 Test Item Value Reference Range Interpretation Comments U Amph Scr (test code Negative *NA*(11/21/22 = U Amph Scr) 9:39 AM) [facility] [id number] 15:39:00 Test Item Value Reference Range Interpretation Comments U Analilia Scr (test code Positive *ABN*(11/21/22 = U Analilia Scr) 9:39 AM) [facility] [id number] 15:39:00 Test Item Value Reference Range Interpretation Comments U Benzodiaz Scr (test Negative *NA*(11/21/22 code = U Benzodiaz Scr) 9:39 AM) [facility] [id number] 15:39:00 Test Item Value Reference Range Interpretation Comments U Cocaine Scr (test Negative *NA*(11/21/22 code = U Cocaine Scr) 9:39 AM) [facility] [id number] 15:39:00 Test Item Value Reference Range Interpretation Comments U Cannab Scr (test Negative *NA*(11/21/22 code = U Cannab Scr) 9:39 AM) [facility] [id number] 15:39:00 Test Item Value Reference Range Interpretation Comments U Opiate Scr (test Positive *ABN*(11/21/22 code = U Opiate Scr) 9:39 AM) [facility] [id number] 15:39:00 Test Item Value Reference Range Interpretation Comments U Phencyclidine Scr (test Negative code = U Phencyclidine *NA*(11/21/22 9:39 Scr) AM) [facility] [id number] 15:39:00 Test Item Value Reference Range Interpretation Comments UDS Note (test code = See Note (11/21/22 9:39 UDS Note) AM) [id number] 15:39:00 Test Item Value Reference Range Interpretation Comments Coronavirus (COVID-19) Not Detected (11/21/22 JONATHAN (test code = 9:39 AM) Coronavirus (COVID-19) JONATHAN) [id number] 15:39:00 Test Item Value Reference Range Interpretation Comments Coronavirus (COVID-19) Not Detected (11/21/22 JONATHAN (test code = 9:39 AM) Coronavirus (COVID-19) JONATHAN) [facility] AND [id number] 15:39:00 Test Item Value Reference Range Interpretation Comments UA Color (test code = Light Yellow UA Color) *NA*(11/21/22 9:39 AM) [facility] AND [id number] 15:39:00 Test Item Value Reference Range Interpretation Comments UA Turbidity (test code = Clear (11/21/22 9:39 UA Turbidity) AM) [facility] AND [id number] 15:39:00 Test Item Value Reference Range Interpretation Comments UA Spec Grav (test code = UA Spec 1.014 1 Grav) [facility] AND [id number] 15:39:00 Test Item Value Reference Range Interpretation Comments UA pH (test code = UA pH) 6.0 1 5.0-8.0 [facility] AND [id number] 15:39:00 Test Item Value Reference Range Interpretation Comments UA Protein (test code = UA Protein) 30 mg/dL [facility] AND [id number] 15:39:00 Test Item Value Reference Range Interpretation Comments UA Glucose (test code = UA Negative mg/dL Glucose) [facility] AND [id number] 15:39:00 Test Item Value Reference Range Interpretation Comments UA Ketones (test code = UA Negative mg/dL Ketones) [facility] AND [id number] 15:39:00 Test Item Value Reference Range Interpretation Comments UA Bili (test code = Negative *NA*(11/21/22 UA Bili) 9:39 AM) [facility] AND [id number] 15:39:00 Test Item Value Reference Range Interpretation Comments UA Blood (test code = Negative (11/21/22 9:39 UA Blood) AM) [facility] [id number] 15:39:00 Test Item Value Reference Range Interpretation Comments UA Urobilinogen (test code = UA no gt 0.1-1.0 Urobilinogen) [facility] [id number] 15:39:00 Test Item Value Reference Range Interpretation Comments UA Nitrite (test code Negative (11/21/22 9:39 = UA Nitrite) AM) [facility] [id number] 15:39:00 Test Item Value Reference Range Interpretation Comments UA Leuk Est (test Negative (11/21/22 9:39 code = UA Leuk Est) AM) [facility] [id number] 15:39:00 Test Item Value Reference Range Interpretation Comments UA Sq Epi (test code = UA Sq Occasional /LPF Epi) [facility] AND [id number] 15:39:00 Test Item Value Reference Range Interpretation Comments UA WBC (test code = no gt See_Comment [Automa sheba message] The UA WBC) system which ge nerated this result transmit sheba reference range : <=5. The reference range was not used to interpr et this result as edy l/abnormal. [facility] AND [id number] 15:39:00 Test Item Value Reference Range Interpretation Comments UA RBC (test code = no gt See_Comment [Automa sheba message] The UA RBC) system which ge nerated this result transmit sheba reference range : <=2. The reference range was not used to interpr et this result as edy l/abnormal. [facility] AND [id number] 15:39:00 Test Item Value Reference Range Interpretation Comments UA Color (test code = Light Yellow UA Color) *NA*(11/21/22 9:39 AM) [facility] [id number] 15:39:00 Test Item Value Reference Range Interpretation Comments UA Turbidity (test code = Clear (11/21/22 9:39 UA Turbidity) AM) [facility] [id number] 15:39:00 Test Item Value Reference Range Interpretation Comments UA Spec Grav (test code = UA Spec 1.014 1 Grav) [facility] AND [id number] 15:39:00 Test Item Value Reference Range Interpretation Comments UA pH (test code = UA pH) 6.0 1 5.0-8.0 [facility] AND [id number] 15:39:00 Test Item Value Reference Range Interpretation Comments UA Protein (test code = UA Protein) 30 mg/dL [facility] AND [id number] 15:39:00 Test Item Value Reference Range Interpretation Comments UA Glucose (test code = UA Negative mg/dL Glucose) [facility] AND [id number] 15:39:00 Test Item Value Reference Range Interpretation Comments UA Ketones (test code = UA Negative mg/dL Ketones) [facility] AND [id number] 15:39:00 Test Item Value Reference Range Interpretation Comments UA Bili (test code = Negative *NA*(11/21/22 UA Bili) 9:39 AM) [facility] AND [id number] 15:39:00 Test Item Value Reference Range Interpretation Comments UA Blood (test code = Negative (11/21/22 9:39 UA Blood) AM) [facility] AND [id number] 15:39:00 Test Item Value Reference Range Interpretation Comments UA Urobilinogen (test code = UA no gt 0.1-1.0 Urobilinogen) [facility] AND [id number] 15:39:00 Test Item Value Reference Range Interpretation Comments UA Nitrite (test code Negative (11/21/22 9:39 = UA Nitrite) AM) [facility] AND [id number] 15:39:00 Test Item Value Reference Range Interpretation Comments UA Leuk Est (test Negative (11/21/22 9:39 code = UA Leuk Est) AM) [facility] AND [id number] 15:39:00 Test Item Value Reference Range Interpretation Comments UA Sq Epi (test code = UA Sq Occasional /LPF Epi) [facility] AND [id number] 15:39:00 Test Item Value Reference Range Interpretation Comments UA WBC (test code = no gt See_Comment [Automa sheba message] The UA WBC) system which ge nerated this result transmit sheba reference range : <=5. The reference range was not used to interpr et this result as edy l/abnormal. [facility] AND [id number] 15:39:00 Test Item Value Reference Range Interpretation Comments UA RBC (test code = no gt See_Comment [Automa sheba message] The UA RBC) system which ge nerated this result transmit sheba reference range : <=2. The reference range was not used to interpr et this result as edy l/abnormal. [facility] [id number] 15:39:00 Test Item Value Reference Range Interpretation Comments U Amph Scr (test code Negative *NA*(11/21/22 = U Amph Scr) 9:39 AM) [id number] 15:39:00 Test Item Value Reference Range Interpretation Comments U Analilia Scr (test code Positive *ABN*(11/21/22 = U Analilia Scr) 9:39 AM) [facility] [id number] 15:39:00 Test Item Value Reference Range Interpretation Comments U Benzodiaz Scr (test Negative *NA*(11/21/22 code = U Benzodiaz Scr) 9:39 AM) [facility] [id number] 15:39:00 Test Item Value Reference Range Interpretation Comments U Cocaine Scr (test Negative *NA*(11/21/22 code = U Cocaine Scr) 9:39 AM) [facility] [id number] 15:39:00 Test Item Value Reference Range Interpretation Comments U Cannab Scr (test Negative *NA*(11/21/22 code = U Cannab Scr) 9:39 AM) [facility] [id number] 15:39:00 Test Item Value Reference Range Interpretation Comments U Opiate Scr (test Positive *ABN*(11/21/22 code = U Opiate Scr) 9:39 AM) [id number] 15:39:00 Test Item Value Reference Range Interpretation Comments U Phencyclidine Scr (test Negative code = U Phencyclidine *NA*(11/21/22 9:39 Scr) AM) [facility] [id number] 15:39:00 Test Item Value Reference Range Interpretation Comments UDS Note (test code = See Note (11/21/22 9:39 UDS Note) AM) [facility] [id number] 15:39:00 Test Item Value Reference Range Interpretation Comments U Amph Scr (test code Negative *NA*(11/21/22 = U Amph Scr) 9:39 AM) [facility] [id number] 15:39:00 Test Item Value Reference Range Interpretation Comments U Analilia Scr (test code Positive *ABN*(11/21/22 = U Analilia Scr) 9:39 AM) [facility] [id number] 15:39:00 Test Item Value Reference Range Interpretation Comments U Benzodiaz Scr (test Negative *NA*(11/21/22 code = U Benzodiaz Scr) 9:39 AM) [facility] [id number] 15:39:00 Test Item Value Reference Range Interpretation Comments U Cocaine Scr (test Negative *NA*(11/21/22 code = U Cocaine Scr) 9:39 AM) [facility] [id number] 15:39:00 Test Item Value Reference Range Interpretation Comments U Cannab Scr (test Negative *NA*(11/21/22 code = U Cannab Scr) 9:39 AM) [facility] [id number] 15:39:00 Test Item Value Reference Range Interpretation Comments U Opiate Scr (test Positive *ABN*(11/21/22 code = U Opiate Scr) 9:39 AM) [facility] [id number] 15:39:00 Test Item Value Reference Range Interpretation Comments U Phencyclidine Scr (test Negative code = U Phencyclidine *NA*(11/21/22 9:39 Scr) AM) [facility] [id number] 15:39:00 Test Item Value Reference Range Interpretation Comments UDS Note (test code = See Note (11/21/22 9:39 UDS Note) AM) [facility] [id number] 15:39:00 Test Item Value Reference Range Interpretation Comments Coronavirus (COVID-19) Not Detected (11/21/22 JONATHAN (test code = 9:39 AM) Coronavirus (COVID-19) JONATHAN) [facility] [id number] 15:39:00 Test Item Value Reference Range Interpretation Comments Coronavirus (COVID-19) Not Detected (11/21/22 JONATHAN (test code = 9:39 AM) Coronavirus (COVID-19) JONATHAN) [facility] [id number] 15:39:00 Test Item Value Reference Range Interpretation Comments UA Color (test code = Light Yellow UA Color) *NA*(11/21/22 9:39 AM) [facility] AND [id number] 15:39:00 Test Item Value Reference Range Interpretation Comments UA Turbidity (test code = Clear (11/21/22 9:39 UA Turbidity) AM) [facility] AND [id number] 15:39:00 Test Item Value Reference Range Interpretation Comments UA Spec Grav (test code = UA Spec 1.014 1 Grav) [facility] AND [id number] 15:39:00 Test Item Value Reference Range Interpretation Comments UA pH (test code = UA pH) 6.0 1 5.0-8.0 [facility] AND [id number] 15:39:00 Test Item Value Reference Range Interpretation Comments UA Protein (test code = UA Protein) 30 mg/dL [facility] AND [id number] 15:39:00 Test Item Value Reference Range Interpretation Comments UA Glucose (test code = UA Negative mg/dL Glucose) [facility] AND [id number] 15:39:00 Test Item Value Reference Range Interpretation Comments UA Ketones (test code = UA Negative mg/dL Ketones) [facility] AND [id number] 15:39:00 Test Item Value Reference Range Interpretation Comments UA Bili (test code = Negative *NA*(11/21/22 UA Bili) 9:39 AM) [facility] AND [id number] 15:39:00 Test Item Value Reference Range Interpretation Comments UA Blood (test code = Negative (11/21/22 9:39 UA Blood) AM) [facility] AND [id number] 15:39:00 Test Item Value Reference Range Interpretation Comments UA Urobilinogen (test code = UA no gt 0.1-1.0 Urobilinogen) [facility] AND [id number] 15:39:00 Test Item Value Reference Range Interpretation Comments UA Nitrite (test code Negative (11/21/22 9:39 = UA Nitrite) AM) [facility] AND [id number] 15:39:00 Test Item Value Reference Range Interpretation Comments UA Leuk Est (test Negative (11/21/22 9:39 code = UA Leuk Est) AM) [facility] AND [id number] 15:39:00 Test Item Value Reference Range Interpretation Comments UA Sq Epi (test code = UA Sq Occasional /LPF Epi) [facility] [id number] 15:39:00 Test Item Value Reference Range Interpretation Comments UA WBC (test code = no gt See_Comment [Automa sheba message] The UA WBC) system which ge nerated this result transmit sheba reference range : <=5. The reference range was not used to interpr et this result as edy l/abnormal. [facility] AND [id number] 15:39:00 Test Item Value Reference Range Interpretation Comments UA RBC (test code = no gt See_Comment [Automa sheba message] The UA RBC) system which ge nerated this result transmit sheba reference range : <=2. The reference range was not used to interpr et this result as edy l/abnormal. [facility] AND [id number] 15:39:00 Test Item Value Reference Range Interpretation Comments UA Color (test code = Light Yellow UA Color) *NA*(11/21/22 9:39 AM) [facility] [id number] 15:39:00 Test Item Value Reference Range Interpretation Comments UA Turbidity (test code = Clear (11/21/22 9:39 UA Turbidity) AM) [facility] [id number] 15:39:00 Test Item Value Reference Range Interpretation Comments UA Spec Grav (test code = UA Spec 1.014 [address] [facility] [id number] 15:39:00 Test Item Value Reference Range Interpretation Comments UA pH (test code = UA pH) 6.0 1 5.0-8.0 [facility] [id number] 15:39:00 Test Item Value Reference Range Interpretation Comments UA Protein (test code = UA Protein) 30 mg/dL [facility] [id number] 15:39:00 Test Item Value Reference Range Interpretation Comments UA Glucose (test code = UA Negative mg/dL Glucose) [facility] [id number] 15:39:00 Test Item Value Reference Range Interpretation Comments UA Ketones (test code = UA Negative mg/dL Ketones) [facility] AND [id number] 15:39:00 Test Item Value Reference Range Interpretation Comments UA Bili (test code = Negative *NA*(11/21/22 UA Bili) 9:39 AM) [facility] [id number] 15:39:00 Test Item Value Reference Range Interpretation Comments UA Blood (test code = Negative (11/21/22 9:39 UA Blood) AM) [facility] [id number] 15:39:00 Test Item Value Reference Range Interpretation Comments UA Urobilinogen (test code = UA no gt 0.1-1.0 Urobilinogen) [facility] [id number] 15:39:00 Test Item Value Reference Range Interpretation Comments UA Nitrite (test code Negative (11/21/22 9:39 = UA Nitrite) AM) [facility] [id number] 15:39:00 Test Item Value Reference Range Interpretation Comments UA Leuk Est (test Negative (11/21/22 9:39 code = UA Leuk Est) AM) [facility] [id number] 15:39:00 Test Item Value Reference Range Interpretation Comments UA Sq Epi (test code = UA Sq Occasional /LPF Epi) [facility] [id number] 15:39:00 Test Item Value Reference Range Interpretation Comments UA WBC (test code = no gt See_Comment [Automa sheba message] The UA WBC) system which ge nerated this result transmit sheba reference range : <=5. The reference range was not used to interpr et this result as edy l/abnormal. [facility] [id number] 15:39:00 Test Item Value Reference Range Interpretation Comments UA RBC (test code = no gt See_Comment [Automa sheba message] The UA RBC) system which ge nerated this result transmit sheba reference range : <=2. The reference range was not used to interpr et this result as eyd l/abnormal. [facility] [id number] 15:39:00 Test Item Value Reference Range Interpretation Comments U Amph Scr (test code Negative *NA*(11/21/22 = U Amph Scr) 9:39 AM) [facility] [id number] 15:39:00 Test Item Value Reference Range Interpretation Comments U Analilia Scr (test code Positive *ABN*(11/21/22 = U Analilia Scr) 9:39 AM) [facility] [id number] 15:39:00 Test Item Value Reference Range Interpretation Comments U Benzodiaz Scr (test Negative *NA*(11/21/22 code = U Benzodiaz Scr) 9:39 AM) [facility] [id number] 15:39:00 Test Item Value Reference Range Interpretation Comments U Cocaine Scr (test Negative *NA*(11/21/22 code = U Cocaine Scr) 9:39 AM) [facility] [id number] 15:39:00 Test Item Value Reference Range Interpretation Comments U Cannab Scr (test Negative *NA*(11/21/22 code = U Cannab Scr) 9:39 AM) [facility] [id number] 15:39:00 Test Item Value Reference Range Interpretation Comments U Opiate Scr (test Positive *ABN*(11/21/22 code = U Opiate Scr) 9:39 AM) [facility] [id number] 15:39:00 Test Item Value Reference Range Interpretation Comments U Phencyclidine Scr (test Negative code = U Phencyclidine *NA*(11/21/22 9:39 Scr) AM) [facility] [id number] 15:39:00 Test Item Value Reference Range Interpretation Comments UDS Note (test code = See Note (11/21/22 9:39 UDS Note) AM) [facility] [id number] 15:39:00 Test Item Value Reference Range Interpretation Comments U Amph Scr (test code Negative *NA*(11/21/22 = U Amph Scr) 9:39 AM) [facility] [id number] 15:39:00 Test Item Value Reference Range Interpretation Comments U Analilia Scr (test code Positive *ABN*(11/21/22 = U Analilia Scr) 9:39 AM) [facility] [id number] 15:39:00 Test Item Value Reference Range Interpretation Comments U Benzodiaz Scr (test Negative *NA*(11/21/22 code = U Benzodiaz Scr) 9:39 AM) [facility] [id number] 15:39:00 Test Item Value Reference Range Interpretation Comments U Cocaine Scr (test Negative *NA*(11/21/22 code = U Cocaine Scr) 9:39 AM) [facility] [id number] 15:39:00 Test Item Value Reference Range Interpretation Comments U Cannab Scr (test Negative *NA*(11/21/22 code = U Cannab Scr) 9:39 AM) [facility] [id number] 15:39:00 Test Item Value Reference Range Interpretation Comments U Opiate Scr (test Positive *ABN*(11/21/22 code = U Opiate Scr) 9:39 AM) [facility] [id number] 15:39:00 Test Item Value Reference Range Interpretation Comments U Phencyclidine Scr (test Negative code = U Phencyclidine *NA*(11/21/22 9:39 Scr) AM) [facility] [id number] 15:39:00 Test Item Value Reference Range Interpretation Comments UDS Note (test code = See Note (11/21/22 9:39 UDS Note) AM) [facility] [id number] 15:39:00 Test Item Value Reference Range Interpretation Comments Coronavirus (COVID-19) Not Detected (11/21/22 JONATHAN (test code = 9:39 AM) Coronavirus (COVID-19) JONATHAN) [facility] [id number] 15:39:00 Test Item Value Reference Range Interpretation Comments Coronavirus (COVID-19) Not Detected (11/21/22 JONATHAN (test code = 9:39 AM) Coronavirus (COVID-19) JONATHAN) [facility] [id number] 15:39:00 Test Item Value Reference Range Interpretation Comments UA Color (test code = Light Yellow UA Color) *NA*(11/21/22 9:39 AM) [facility] [id number] 15:39:00 Test Item Value Reference Range Interpretation Comments UA Turbidity (test code = Clear (11/21/22 9:39 UA Turbidity) AM) [facility] [id number] 15:39:00 Test Item Value Reference Range Interpretation Comments UA Spec Grav (test code = UA Spec 1.014 1 Grav) [facility] [id number] 15:39:00 Test Item Value Reference Range Interpretation Comments UA pH (test code = UA pH) 6.0 1 5.0-8.0 [facility] AND [id number] 15:39:00 Test Item Value Reference Range Interpretation Comments UA Protein (test code = UA Protein) 30 mg/dL [facility] AND [id number] 15:39:00 Test Item Value Reference Range Interpretation Comments UA Glucose (test code = UA Negative mg/dL Glucose) [facility] AND [id number] 15:39:00 Test Item Value Reference Range Interpretation Comments UA Ketones (test code = UA Negative mg/dL Ketones) [facility] AND [id number] 15:39:00 Test Item Value Reference Range Interpretation Comments UA Bili (test code = Negative *NA*(11/21/22 UA Bili) 9:39 AM) [facility] AND [id number] 15:39:00 Test Item Value Reference Range Interpretation Comments UA Blood (test code = Negative (11/21/22 9:39 UA Blood) AM) [facility] AND [id number] 15:39:00 Test Item Value Reference Range Interpretation Comments UA Urobilinogen (test code = UA no gt 0.1-1.0 Urobilinogen) [facility] AND [id number] 15:39:00 Test Item Value Reference Range Interpretation Comments UA Nitrite (test code Negative (11/21/22 9:39 = UA Nitrite) AM) [facility] AND [id number] 15:39:00 Test Item Value Reference Range Interpretation Comments UA Leuk Est (test Negative (11/21/22 9:39 code = UA Leuk Est) AM) [facility] AND [id number] 15:39:00 Test Item Value Reference Range Interpretation Comments UA Sq Epi (test code = UA Sq Occasional /LPF Epi) [facility] AND [id number] 15:39:00 Test Item Value Reference Range Interpretation Comments UA WBC (test code = no gt See_Comment [Automa sheba message] The UA WBC) system which ge nerated this result transmit sheba reference range : <=5. The reference range was not used to interpr et this result as edy l/abnormal. [facility] AND [id number] 15:39:00 Test Item Value Reference Range Interpretation Comments UA RBC (test code = no gt See_Comment [Automa sheba message] The UA RBC) system which ge nerated this result transmit sheba reference range : <=2. The reference range was not used to interpr et this result as edy l/abnormal. [facility] [id number] 15:39:00 Test Item Value Reference Range Interpretation Comments UA Color (test code = Light Yellow UA Color) *NA*(11/21/22 9:39 AM) [facility] AND [id number] 15:39:00 Test Item Value Reference Range Interpretation Comments UA Turbidity (test code = Clear (11/21/22 9:39 UA Turbidity) AM) [facility] AND [id number] 15:39:00 Test Item Value Reference Range Interpretation Comments UA Spec Grav (test code = UA Spec 1.014 1 Grav) [facility] AND [id number] 15:39:00 Test Item Value Reference Range Interpretation Comments UA pH (test code = UA pH) 6.0 1 5.0-8.0 [facility] AND [id number] 15:39:00 Test Item Value Reference Range Interpretation Comments UA Protein (test code = UA Protein) 30 mg/dL [facility] AND [id number] 15:39:00 Test Item Value Reference Range Interpretation Comments UA Glucose (test code = UA Negative mg/dL Glucose) [facility] AND [id number] 15:39:00 Test Item Value Reference Range Interpretation Comments UA Ketones (test code = UA Negative mg/dL Ketones) [facility] AND [id number] 15:39:00 Test Item Value Reference Range Interpretation Comments UA Bili (test code = Negative *NA*(11/21/22 UA Bili) 9:39 AM) [facility] AND [id number] 15:39:00 Test Item Value Reference Range Interpretation Comments UA Blood (test code = Negative (11/21/22 9:39 UA Blood) AM) [facility] AND [id number] 15:39:00 Test Item Value Reference Range Interpretation Comments UA Urobilinogen (test code = UA no gt 0.1-1.0 Urobilinogen) [facility] AND [id number] 15:39:00 Test Item Value Reference Range Interpretation Comments UA Nitrite (test code Negative (11/21/22 9:39 = UA Nitrite) AM) [facility] AND [id number] 15:39:00 Test Item Value Reference Range Interpretation Comments UA Leuk Est (test Negative (11/21/22 9:39 code = UA Leuk Est) AM) [facility] AND [id number] 15:39:00 Test Item Value Reference Range Interpretation Comments UA Sq Epi (test code = UA Sq Occasional /LPF Epi) [facility] AND [id number] 15:39:00 Test Item Value Reference Range Interpretation Comments UA WBC (test code = no gt See_Comment [Automa sheba message] The UA WBC) system which ge nerated this result transmit sheba reference range : <=5. The reference range was not used to interpr et this result as edy l/abnormal. [facility] AND [id number] 15:39:00 Test Item Value Reference Range Interpretation Comments UA RBC (test code = no gt See_Comment [Automa sheba message] The UA RBC) system which ge nerated this result transmit sheba reference range : <=2. The reference range was not used to interpr et this result as edy l/abnormal. [id number] 15:39:00 Test Item Value Reference Range Interpretation Comments U Amph Scr (test code Negative *NA*(11/21/22 = U Amph Scr) 9:39 AM) [facility] [id number] 15:39:00 Test Item Value Reference Range Interpretation Comments U Analilia Scr (test code Positive *ABN*(11/21/22 = U Analilia Scr) 9:39 AM) [facility] [id number] 15:39:00 Test Item Value Reference Range Interpretation Comments U Benzodiaz Scr (test Negative *NA*(11/21/22 code = U Benzodiaz Scr) 9:39 AM) [facility] [id number] 15:39:00 Test Item Value Reference Range Interpretation Comments U Cocaine Scr (test Negative *NA*(11/21/22 code = U Cocaine Scr) 9:39 AM) [facility] [id number] 15:39:00 Test Item Value Reference Range Interpretation Comments U Cannab Scr (test Negative *NA*(11/21/22 code = U Cannab Scr) 9:39 AM) [facility] [id number] 15:39:00 Test Item Value Reference Range Interpretation Comments U Opiate Scr (test Positive *ABN*(11/21/22 code = U Opiate Scr) 9:39 AM) [facility] [id number] 15:39:00 Test Item Value Reference Range Interpretation Comments U Phencyclidine Scr (test Negative code = U Phencyclidine *NA*(11/21/22 9:39 Scr) AM) [facility] [id number] 15:39:00 Test Item Value Reference Range Interpretation Comments UDS Note (test code = See Note (11/21/22 9:39 UDS Note) AM) [facility] [id number] 15:39:00 Test Item Value Reference Range Interpretation Comments U Amph Scr (test code Negative *NA*(11/21/22 = U Amph Scr) 9:39 AM) [facility] [id number] 15:39:00 Test Item Value Reference Range Interpretation Comments U Analilia Scr (test code Positive *ABN*(11/21/22 = U Analilia Scr) 9:39 AM) [facility] [id number] 15:39:00 Test Item Value Reference Range Interpretation Comments U Benzodiaz Scr (test Negative *NA*(11/21/22 code = U Benzodiaz Scr) 9:39 AM) [facility] [id number] 15:39:00 Test Item Value Reference Range Interpretation Comments U Cocaine Scr (test Negative *NA*(11/21/22 code = U Cocaine Scr) 9:39 AM) [facility] [id number] 15:39:00 Test Item Value Reference Range Interpretation Comments U Cannab Scr (test Negative *NA*(11/21/22 code = U Cannab Scr) 9:39 AM) [facility] [id number] 15:39:00 Test Item Value Reference Range Interpretation Comments U Opiate Scr (test Positive *ABN*(11/21/22 code = U Opiate Scr) 9:39 AM) [facility] [id number] 15:39:00 Test Item Value Reference Range Interpretation Comments U Phencyclidine Scr (test Negative code = U Phencyclidine *NA*(11/21/22 9:39 Scr) AM) [facility] [id number] 15:39:00 Test Item Value Reference Range Interpretation Comments UDS Note (test code = See Note (11/21/22 9:39 UDS Note) AM) [facility] [id number] 15:39:00 Test Item Value Reference Range Interpretation Comments Coronavirus (COVID-19) Not Detected (11/21/22 JONATHAN (test code = 9:39 AM) Coronavirus (COVID-19) JONATHAN) [facility] [id number] 15:39:00 Test Item Value Reference Range Interpretation Comments Coronavirus (COVID-19) Not Detected (11/21/22 JONATHAN (test code = 9:39 AM) Coronavirus (COVID-19) JONATHAN) [facility] [id number] 15:39:00 Test Item Value Reference Range Interpretation Comments UA Color (test code = Light Yellow UA Color) *NA*(11/21/22 9:39 AM) [facility] [id number] 15:39:00 Test Item Value Reference Range Interpretation Comments UA Turbidity (test code = Clear (11/21/22 9:39 UA Turbidity) AM) [facility] [id number] 15:39:00 Test Item Value Reference Range Interpretation Comments UA Spec Grav (test code = UA Spec 1.014 1 Grav) [facility] [id number] 15:39:00 Test Item Value Reference Range Interpretation Comments UA pH (test code = UA pH) 6.0 1 5.0-8.0 [facility] [id number] 15:39:00 Test Item Value Reference Range Interpretation Comments UA Protein (test code = UA Protein) 30 mg/dL [facility] [id number] 15:39:00 Test Item Value Reference Range Interpretation Comments UA Glucose (test code = UA Negative mg/dL Glucose) [facility] [id number] 15:39:00 Test Item Value Reference Range Interpretation Comments UA Ketones (test code = UA Negative mg/dL Ketones) [facility] [id number] 15:39:00 Test Item Value Reference Range Interpretation Comments UA Bili (test code = Negative *NA*(11/21/22 UA Bili) 9:39 AM) [facility] [id number] 15:39:00 Test Item Value Reference Range Interpretation Comments UA Blood (test code = Negative (11/21/22 9:39 UA Blood) AM) [facility] [id number] 15:39:00 Test Item Value Reference Range Interpretation Comments UA Urobilinogen (test code = UA no gt 0.1-1.0 Urobilinogen) [facility] [id number] 15:39:00 Test Item Value Reference Range Interpretation Comments UA Nitrite (test code Negative (11/21/22 9:39 = UA Nitrite) AM) [facility] [id number] 15:39:00 Test Item Value Reference Range Interpretation Comments UA Leuk Est (test Negative (11/21/22 9:39 code = UA Leuk Est) AM) [facility] [id number] 15:39:00 Test Item Value Reference Range Interpretation Comments UA Sq Epi (test code = UA Sq Occasional /LPF Epi) [facility] [id number] 15:39:00 Test Item Value Reference Range Interpretation Comments UA WBC (test code = no gt See_Comment [Automa sheba message] The UA WBC) system which ge nerated this result transmit sheba reference range : <=5. The reference range was not used to interpr et this result as dey l/abnormal. [facility] [id number] 15:39:00 Test Item Value Reference Range Interpretation Comments UA RBC (test code = no gt See_Comment [Automa sheba message] The UA RBC) system which ge nerated this result transmit sheba reference range : <=2. The reference range was not used to interpr et this result as edy l/abnormal. [facility] [id number] 15:39:00 Test Item Value Reference Range Interpretation Comments UA Color (test code = Light Yellow UA Color) *NA*(11/21/22 9:39 AM) [facility] [id number] 15:39:00 Test Item Value Reference Range Interpretation Comments UA Turbidity (test code = Clear (11/21/22 9:39 UA Turbidity) AM) [facility] AND [id number] 15:39:00 Test Item Value Reference Range Interpretation Comments UA Spec Grav (test code = UA Spec 1.014 1 Grav) [facility] AND [id number] 15:39:00 Test Item Value Reference Range Interpretation Comments UA pH (test code = UA pH) 6.0 1 5.0-8.0 [facility] AND [id number] 15:39:00 Test Item Value Reference Range Interpretation Comments UA Protein (test code = UA Protein) 30 mg/dL [facility] AND [id number] 15:39:00 Test Item Value Reference Range Interpretation Comments UA Glucose (test code = UA Negative mg/dL Glucose) [facility] AND [id number] 15:39:00 Test Item Value Reference Range Interpretation Comments UA Ketones (test code = UA Negative mg/dL Ketones) [facility] AND [id number] 15:39:00 Test Item Value Reference Range Interpretation Comments UA Bili (test code = Negative *NA*(11/21/22 UA Bili) 9:39 AM) [facility] AND [id number] 15:39:00 Test Item Value Reference Range Interpretation Comments UA Blood (test code = Negative (11/21/22 9:39 UA Blood) AM) [facility] AND [id number] 15:39:00 Test Item Value Reference Range Interpretation Comments UA Urobilinogen (test code = UA no gt 0.1-1.0 Urobilinogen) [facility] AND [id number] 15:39:00 Test Item Value Reference Range Interpretation Comments UA Nitrite (test code Negative (11/21/22 9:39 = UA Nitrite) AM) [facility] AND [id number] 15:39:00 Test Item Value Reference Range Interpretation Comments UA Leuk Est (test Negative (11/21/22 9:39 code = UA Leuk Est) AM) [facility] AND [id number] 15:39:00 Test Item Value Reference Range Interpretation Comments UA Sq Epi (test code = UA Sq Occasional /LPF Epi) [facility] AND [id number] 15:39:00 Test Item Value Reference Range Interpretation Comments UA WBC (test code = no gt See_Comment [Automa sheba message] The UA WBC) system which ge nerated this result transmit sheba reference range : <=5. The reference range was not used to interpr et this result as edy l/abnormal. [facility] AND [id number] 15:39:00 Test Item Value Reference Range Interpretation Comments UA RBC (test code = no gt See_Comment [Automa sheba message] The UA RBC) system which ge nerated this result transmit sheba reference range : <=2. The reference range was not used to interpr et this result as edy l/abnormal. [facility] [id number] 15:39:00 Test Item Value Reference Range Interpretation Comments U Amph Scr (test code Negative *NA*(11/21/22 = U Amph Scr) 9:39 AM) [facility] [id number] 15:39:00 Test Item Value Reference Range Interpretation Comments U Analilia Scr (test code Positive *ABN*(11/21/22 = U Analilia Scr) 9:39 AM) [facility] [id number] 15:39:00 Test Item Value Reference Range Interpretation Comments U Benzodiaz Scr (test Negative *NA*(11/21/22 code = U Benzodiaz Scr) 9:39 AM) [facility] [id number] 15:39:00 Test Item Value Reference Range Interpretation Comments U Cocaine Scr (test Negative *NA*(11/21/22 code = U Cocaine Scr) 9:39 AM) [facility] [id number] 15:39:00 Test Item Value Reference Range Interpretation Comments U Cannab Scr (test Negative *NA*(11/21/22 code = U Cannab Scr) 9:39 AM) [facility] [id number] 15:39:00 Test Item Value Reference Range Interpretation Comments U Opiate Scr (test Positive *ABN*(11/21/22 code = U Opiate Scr) 9:39 AM) [facility] [id number] 15:39:00 Test Item Value Reference Range Interpretation Comments U Phencyclidine Scr (test Negative code = U Phencyclidine *NA*(11/21/22 9:39 Scr) AM) [facility] [id number] 15:39:00 Test Item Value Reference Range Interpretation Comments UDS Note (test code = See Note (11/21/22 9:39 UDS Note) AM) [facility] [id number] 15:39:00 Test Item Value Reference Range Interpretation Comments U Amph Scr (test code Negative *NA*(11/21/22 = U Amph Scr) 9:39 AM) [facility] [id number] 15:39:00 Test Item Value Reference Range Interpretation Comments U Analilia Scr (test code Positive *ABN*(11/21/22 = U Analilia Scr) 9:39 AM) [facility] [id number] 15:39:00 Test Item Value Reference Range Interpretation Comments U Benzodiaz Scr (test Negative *NA*(11/21/22 code = U Benzodiaz Scr) 9:39 AM) [facility] [id number] 15:39:00 Test Item Value Reference Range Interpretation Comments U Cocaine Scr (test Negative *NA*(11/21/22 code = U Cocaine Scr) 9:39 AM) [facility] [id number] 15:39:00 Test Item Value Reference Range Interpretation Comments U Cannab Scr (test Negative *NA*(11/21/22 code = U Cannab Scr) 9:39 AM) [facility] [id number] 15:39:00 Test Item Value Reference Range Interpretation Comments U Opiate Scr (test Positive *ABN*(11/21/22 code = U Opiate Scr) 9:39 AM) [facility] [id number] 15:39:00 Test Item Value Reference Range Interpretation Comments U Phencyclidine Scr (test Negative code = U Phencyclidine *NA*(11/21/22 9:39 Scr) AM) [facility] [id number] 15:39:00 Test Item Value Reference Range Interpretation Comments UDS Note (test code = See Note (11/21/22 9:39 UDS Note) AM) [facility] [id number] 15:39:00 Test Item Value Reference Range Interpretation Comments Coronavirus (COVID-19) Not Detected (11/21/22 JONATHAN (test code = 9:39 AM) Coronavirus (COVID-19) JONATHAN) [id number] 15:39:00 Test Item Value Reference Range Interpretation Comments Coronavirus (COVID-19) Not Detected (11/21/22 JONATHAN (test code = 9:39 AM) Coronavirus (COVID-19) JONATHAN) [facility] AND [id number] 15:39:00 Test Item Value Reference Range Interpretation Comments UA Color (test code = Light Yellow UA Color) *NA*(11/21/22 9:39 AM) [facility] [id number] 15:39:00 Test Item Value Reference Range Interpretation Comments UA Turbidity (test code = Clear (11/21/22 9:39 UA Turbidity) AM) [facility] AND [id number] 15:39:00 Test Item Value Reference Range Interpretation Comments UA Spec Grav (test code = UA Spec 1.014 1 Grav) [facility] AND [id number] 15:39:00 Test Item Value Reference Range Interpretation Comments UA pH (test code = UA pH) 6.0 1 5.0-8.[address] [facility] AND [id number] 15:39:00 Test Item Value Reference Range Interpretation Comments UA Protein (test code = UA Protein) 30 mg/dL [facility] AND [id number] 15:39:00 Test Item Value Reference Range Interpretation Comments UA Glucose (test code = UA Negative mg/dL Glucose) [facility] AND [id number] 15:39:00 Test Item Value Reference Range Interpretation Comments UA Ketones (test code = UA Negative mg/dL Ketones) [facility] AND [id number] 15:39:00 Test Item Value Reference Range Interpretation Comments UA Bili (test code = Negative *NA*(11/21/22 UA Bili) 9:39 AM) [facility] AND [id number] 15:39:00 Test Item Value Reference Range Interpretation Comments UA Blood (test code = Negative (11/21/22 9:39 UA Blood) AM) [facility] AND [id number] 15:39:00 Test Item Value Reference Range Interpretation Comments UA Urobilinogen (test code = UA no gt 0.1-1.0 Urobilinogen) [facility] AND [id number] 15:39:00 Test Item Value Reference Range Interpretation Comments UA Nitrite (test code Negative (11/21/22 9:39 = UA Nitrite) AM) [facility] AND [id number] 15:39:00 Test Item Value Reference Range Interpretation Comments UA Leuk Est (test Negative (11/21/22 9:39 code = UA Leuk Est) AM) [facility] AND [id number] 15:39:00 Test Item Value Reference Range Interpretation Comments UA Sq Epi (test code = UA Sq Occasional /LPF Epi) [facility] AND [id number] 15:39:00 Test Item Value Reference Range Interpretation Comments UA WBC (test code = no gt See_Comment [Automa sheba message] The UA WBC) system which ge nerated this result transmit sheba reference range : <=5. The reference range was not used to interpr et this result as edy l/abnormal. [facility] AND [id number] 15:39:00 Test Item Value Reference Range Interpretation Comments UA RBC (test code = no gt See_Comment [Automa sheba message] The UA RBC) system which ge nerated this result transmit sheba reference range : <=2. The reference range was not used to interpr et this result as edy l/abnormal. [facility] AND [id number] 15:39:00 Test Item Value Reference Range Interpretation Comments UA Color (test code = Light Yellow UA Color) *NA*(11/21/22 9:39 AM) [facility] AND [id number] 15:39:00 Test Item Value Reference Range Interpretation Comments UA Turbidity (test code = Clear (11/21/22 9:39 UA Turbidity) AM) [facility] AND [id number] 15:39:00 Test Item Value Reference Range Interpretation Comments UA Spec Grav (test code = UA Spec 1.014 1 Grav) [facility] AND [id number] 15:39:00 Test Item Value Reference Range Interpretation Comments UA pH (test code = UA pH) 6.0 1 5.0-8.0 [facility] AND [id number] 15:39:00 Test Item Value Reference Range Interpretation Comments UA Protein (test code = UA Protein) 30 mg/dL [facility] AND [id number] 15:39:00 Test Item Value Reference Range Interpretation Comments UA Glucose (test code = UA Negative mg/dL Glucose) [facility] AND [id number] 15:39:00 Test Item Value Reference Range Interpretation Comments UA Ketones (test code = UA Negative mg/dL Ketones) [facility] AND [id number] 15:39:00 Test Item Value Reference Range Interpretation Comments UA Bili (test code = Negative *NA*(11/21/22 UA Bili) 9:39 AM) [facility] AND [id number] 15:39:00 Test Item Value Reference Range Interpretation Comments UA Blood (test code = Negative (11/21/22 9:39 UA Blood) AM) [facility] AND [id number] 15:39:00 Test Item Value Reference Range Interpretation Comments UA Urobilinogen (test code = UA no gt 0.1-1.0 Urobilinogen) [facility] AND [id number] 15:39:00 Test Item Value Reference Range Interpretation Comments UA Nitrite (test code Negative (11/21/22 9:39 = UA Nitrite) AM) [facility] AND [id number] 15:39:00 Test Item Value Reference Range Interpretation Comments UA Leuk Est (test Negative (11/21/22 9:39 code = UA Leuk Est) AM) [facility] AND [id number] 15:39:00 Test Item Value Reference Range Interpretation Comments UA Sq Epi (test code = UA Sq Occasional /LPF Epi) [facility] AND [id number] 15:39:00 Test Item Value Reference Range Interpretation Comments UA WBC (test code = no gt See_Comment [Automa sheba message] The UA WBC) system which ge nerated this result transmit sheba reference range : <=5. The reference range was not used to interpr et this result as edy l/abnormal. [facility] AND [id number] 15:39:00 Test Item Value Reference Range Interpretation Comments UA RBC (test code = no gt See_Comment [Automa sheba message] The UA RBC) system which ge nerated this result transmit sheba reference range : <=2. The reference range was not used to interpr et this result as edy l/abnormal. [id number] 15:39:00 Test Item Value Reference Range Interpretation Comments U Amph Scr (test code Negative *NA*(11/21/22 = U Amph Scr) 9:39 AM) [facility] [id number] 15:39:00 Test Item Value Reference Range Interpretation Comments U Analilia Scr (test code Positive *ABN*(11/21/22 = U Analilia Scr) 9:39 AM) [facility] [id number] 15:39:00 Test Item Value Reference Range Interpretation Comments U Benzodiaz Scr (test Negative *NA*(11/21/22 code = U Benzodiaz Scr) 9:39 AM) [facility] [id number] 15:39:00 Test Item Value Reference Range Interpretation Comments U Cocaine Scr (test Negative *NA*(11/21/22 code = U Cocaine Scr) 9:39 AM) [facility] [id number] 15:39:00 Test Item Value Reference Range Interpretation Comments U Cannab Scr (test Negative *NA*(11/21/22 code = U Cannab Scr) 9:39 AM) [facility] [id number] 15:39:00 Test Item Value Reference Range Interpretation Comments U Opiate Scr (test Positive *ABN*(11/21/22 code = U Opiate Scr) 9:39 AM) [facility] [id number] 15:39:00 Test Item Value Reference Range Interpretation Comments U Phencyclidine Scr (test Negative code = U Phencyclidine *NA*(11/21/22 9:39 Scr) AM) [facility] [id number] 15:39:00 Test Item Value Reference Range Interpretation Comments UDS Note (test code = See Note (11/21/22 9:39 UDS Note) AM) [facility] [id number] 15:39:00 Test Item Value Reference Range Interpretation Comments U Amph Scr (test code Negative *NA*(11/21/22 = U Amph Scr) 9:39 AM) [facility] [id number] 15:39:00 Test Item Value Reference Range Interpretation Comments U Analilia Scr (test code Positive *ABN*(11/21/22 = U Analilia Scr) 9:39 AM) [facility] [id number] 15:39:00 Test Item Value Reference Range Interpretation Comments U Benzodiaz Scr (test Negative *NA*(11/21/22 code = U Benzodiaz Scr) 9:39 AM) [facility] [id number] 15:39:00 Test Item Value Reference Range Interpretation Comments U Cocaine Scr (test Negative *NA*(11/21/22 code = U Cocaine Scr) 9:39 AM) [facility] [id number] 15:39:00 Test Item Value Reference Range Interpretation Comments U Cannab Scr (test Negative *NA*(11/21/22 code = U Cannab Scr) 9:39 AM) [facility] [id number] 15:39:00 Test Item Value Reference Range Interpretation Comments U Opiate Scr (test Positive *ABN*(11/21/22 code = U Opiate Scr) 9:39 AM) [facility] CenterDR[facility] [id number] 15:39:00 Test Item Value Reference Range Interpretation Comments U Phencyclidine Scr (test Negative code = U Phencyclidine *NA*(11/21/22 9:39 Scr) AM) [facility] CenterDR[facility] [id number] 15:39:00 Test Item Value Reference Range Interpretation Comments UDS Note (test code = See Note (11/21/22 9:39 UDS Note) AM) [facility] [id number] 15:39:00 Test Item Value Reference Range Interpretation Comments Coronavirus (COVID-19) Not Detected (11/21/22 JONATHAN (test code = 9:39 AM) Coronavirus (COVID-19) JONATHAN) [facility] [id number] 15:39:00 Test Item Value Reference Range Interpretation Comments Coronavirus (COVID-19) Not Detected (11/21/22 JONATHAN (test code = 9:39 AM) Coronavirus (COVID-19) JONATHAN) [facility] [id number] 15:39:00 Test Item Value Reference Range Interpretation Comments UA Color (test code = Light Yellow UA Color) *NA*(11/21/22 9:39 AM) [facility] AND [id number] 15:39:00 Test Item Value Reference Range Interpretation Comments UA Turbidity (test code = Clear (11/21/22 9:39 UA Turbidity) AM) [facility] AND [id number] 15:39:00 Test Item Value Reference Range Interpretation Comments UA Spec Grav (test code = UA Spec 1.014 1 Grav) [facility] AND [id number] 15:39:00 Test Item Value Reference Range Interpretation Comments UA pH (test code = UA pH) 6.0 1 5.0-8.0 [facility] AND [id number] 15:39:00 Test Item Value Reference Range Interpretation Comments UA Protein (test code = UA Protein) 30 mg/dL [facility] AND [id number] 15:39:00 Test Item Value Reference Range Interpretation Comments UA Glucose (test code = UA Negative mg/dL Glucose) [facility] AND [id number] 15:39:00 Test Item Value Reference Range Interpretation Comments UA Ketones (test code = UA Negative mg/dL Ketones) [facility] AND [id number] 15:39:00 Test Item Value Reference Range Interpretation Comments UA Bili (test code = Negative *NA*(11/21/22 UA Bili) 9:39 AM) [facility] AND [id number] 15:39:00 Test Item Value Reference Range Interpretation Comments UA Blood (test code = Negative (11/21/22 9:39 UA Blood) AM) [facility] AND [id number] 15:39:00 Test Item Value Reference Range Interpretation Comments UA Urobilinogen (test code = UA no gt 0.1-1.0 Urobilinogen) [facility] AND [id number] 15:39:00 Test Item Value Reference Range Interpretation Comments UA Nitrite (test code Negative (11/21/22 9:39 = UA Nitrite) AM) [facility] AND [id number] 15:39:00 Test Item Value Reference Range Interpretation Comments UA Leuk Est (test Negative (11/21/22 9:39 code = UA Leuk Est) AM) [facility] AND [id number] 15:39:00 Test Item Value Reference Range Interpretation Comments UA Sq Epi (test code = UA Sq Occasional /LPF Epi) [facility] AND [id number] 15:39:00 Test Item Value Reference Range Interpretation Comments UA WBC (test code = no gt See_Comment [Automa sheba message] The UA WBC) system which ge nerated this result transmit sheba reference range : <=5. The reference range was not used to interpr et this result as edy l/abnormal. [facility] AND [id number] 15:39:00 Test Item Value Reference Range Interpretation Comments UA RBC (test code = no gt See_Comment [Automa sheba message] The UA RBC) system which ge nerated this result transmit sheba reference range : <=2. The reference range was not used to interpr et this result as edy l/abnormal. [facility] AND [id number] 15:39:00 Test Item Value Reference Range Interpretation Comments UA Color (test code = Light Yellow UA Color) *NA*(11/21/22 9:39 AM) [facility] AND [id number] 15:39:00 Test Item Value Reference Range Interpretation Comments UA Turbidity (test code = Clear (11/21/22 9:39 UA Turbidity) AM) [facility] AND [id number] 15:39:00 Test Item Value Reference Range Interpretation Comments UA Spec Grav (test code = UA Spec 1.014 1 Grav) [facility] AND [id number] 15:39:00 Test Item Value Reference Range Interpretation Comments UA pH (test code = UA pH) 6.0 1 5.0-8.0 [facility] AND [id number] 15:39:00 Test Item Value Reference Range Interpretation Comments UA Protein (test code = UA Protein) 30 mg/dL [facility] AND [id number] 15:39:00 Test Item Value Reference Range Interpretation Comments UA Glucose (test code = UA Negative mg/dL Glucose) [facility] [id number] 15:39:00 Test Item Value Reference Range Interpretation Comments UA Ketones (test code = UA Negative mg/dL Ketones) [facility] [id number] 15:39:00 Test Item Value Reference Range Interpretation Comments UA Bili (test code = Negative *NA*(11/21/22 UA Bili) 9:39 AM) [facility] [id number] 15:39:00 Test Item Value Reference Range Interpretation Comments UA Blood (test code = Negative (11/21/22 9:39 UA Blood) AM) [facility] AND [id number] 15:39:00 Test Item Value Reference Range Interpretation Comments UA Urobilinogen (test code = UA no gt 0.1-1.0 Urobilinogen) [facility] AND [id number] 15:39:00 Test Item Value Reference Range Interpretation Comments UA Nitrite (test code Negative (11/21/22 9:39 = UA Nitrite) AM) [facility] [id number] 15:39:00 Test Item Value Reference Range Interpretation Comments UA Leuk Est (test Negative (11/21/22 9:39 code = UA Leuk Est) AM) [facility] AND [id number] 15:39:00 Test Item Value Reference Range Interpretation Comments UA Sq Epi (test code = UA Sq Occasional /LPF Epi) [facility] AND [id number] 15:39:00 Test Item Value Reference Range Interpretation Comments UA WBC (test code = no gt See_Comment [Automa sheba message] The UA WBC) system which ge nerated this result transmit sheba reference range : <=5. The reference range was not used to interpr et this result as edy l/abnormal. [facility] AND [id number] 15:39:00 Test Item Value Reference Range Interpretation Comments UA RBC (test code = no gt See_Comment [Automa sheba message] The UA RBC) system which ge nerated this result transmit sheba reference range : <=2. The reference range was not used to interpr et this result as edy l/abnormal. [facility] [id number] 15:39:00 Test Item Value Reference Range Interpretation Comments U Amph Scr (test code Negative *NA*(11/21/22 = U Amph Scr) 9:39 AM) [facility] [id number] 15:39:00 Test Item Value Reference Range Interpretation Comments U Analilia Scr (test code Positive *ABN*(11/21/22 = U Analilia Scr) 9:39 AM) [facility] [id number] 15:39:00 Test Item Value Reference Range Interpretation Comments U Benzodiaz Scr (test Negative *NA*(11/21/22 code = U Benzodiaz Scr) 9:39 AM) [facility] [id number] 15:39:00 Test Item Value Reference Range Interpretation Comments U Cocaine Scr (test Negative *NA*(11/21/22 code = U Cocaine Scr) 9:39 AM) [facility] [id number] 15:39:00 Test Item Value Reference Range Interpretation Comments U Cannab Scr (test Negative *NA*(11/21/22 code = U Cannab Scr) 9:39 AM) [facility] [id number] 15:39:00 Test Item Value Reference Range Interpretation Comments U Opiate Scr (test Positive *ABN*(11/21/22 code = U Opiate Scr) 9:39 AM) [id number] 15:39:00 Test Item Value Reference Range Interpretation Comments U Phencyclidine Scr (test Negative code = U Phencyclidine *NA*(11/21/22 9:39 Scr) AM) [facility] [id number] 15:39:00 Test Item Value Reference Range Interpretation Comments UDS Note (test code = See Note (11/21/22 9:39 UDS Note) AM) [facility] CenterDR[facility] [id number] 15:39:00 Test Item Value Reference Range Interpretation Comments U Amph Scr (test code Negative *NA*(11/21/22 = U Amph Scr) 9:39 AM) [facility] [id number] 15:39:00 Test Item Value Reference Range Interpretation Comments U Analilia Scr (test code Positive *ABN*(11/21/22 = U Analilia Scr) 9:39 AM) [facility] [id number] 15:39:00 Test Item Value Reference Range Interpretation Comments U Benzodiaz Scr (test Negative *NA*(11/21/22 code = U Benzodiaz Scr) 9:39 AM) [facility] [id number] 15:39:00 Test Item Value Reference Range Interpretation Comments U Cocaine Scr (test Negative *NA*(11/21/22 code = U Cocaine Scr) 9:39 AM) [facility] [id number] 15:39:00 Test Item Value Reference Range Interpretation Comments U Cannab Scr (test Negative *NA*(11/21/22 code = U Cannab Scr) 9:39 AM) [facility] [id number] 15:39:00 Test Item Value Reference Range Interpretation Comments U Opiate Scr (test Positive *ABN*(11/21/22 code = U Opiate Scr) 9:39 AM) [facility] [id number] 15:39:00 Test Item Value Reference Range Interpretation Comments U Phencyclidine Scr (test Negative code = U Phencyclidine *NA*(11/21/22 9:39 Scr) AM) [facility] [id number] 15:39:00 Test Item Value Reference Range Interpretation Comments UDS Note (test code = See Note (11/21/22 9:39 UDS Note) AM) [facility] [id number] 15:39:00 Test Item Value Reference Range Interpretation Comments Coronavirus (COVID-19) Not Detected (11/21/22 JONATHAN (test code = 9:39 AM) Coronavirus (COVID-19) JONATHAN) [facility] [id number] 15:39:00 Test Item Value Reference Range Interpretation Comments Coronavirus (COVID-19) Not Detected (11/21/22 JONATHAN (test code = 9:39 AM) Coronavirus (COVID-19) JONATHAN) [facility] AND [id number] 15:39:00 Test Item Value Reference Range Interpretation Comments UA Color (test code = Light Yellow UA Color) *NA*(11/21/22 9:39 AM) [facility] AND [id number] 15:39:00 Test Item Value Reference Range Interpretation Comments UA Turbidity (test code = Clear (11/21/22 9:39 UA Turbidity) AM) [facility] [id number] 15:39:00 Test Item Value Reference Range Interpretation Comments UA Spec Grav (test code = UA Spec 1.014 1 Grav) [facility] [id number] 15:39:00 Test Item Value Reference Range Interpretation Comments UA pH (test code = UA pH) 6.0 1 5.0-8.0 [facility] [id number] 15:39:00 Test Item Value Reference Range Interpretation Comments UA Protein (test code = UA Protein) 30 mg/dL [facility] AND [id number] 15:39:00 Test Item Value Reference Range Interpretation Comments UA Glucose (test code = UA Negative mg/dL Glucose) [facility] AND [id number] 15:39:00 Test Item Value Reference Range Interpretation Comments UA Ketones (test code = UA Negative mg/dL Ketones) [facility] AND [id number] 15:39:00 Test Item Value Reference Range Interpretation Comments UA Bili (test code = Negative *NA*(11/21/22 UA Bili) 9:39 AM) [facility] AND [id number] 15:39:00 Test Item Value Reference Range Interpretation Comments UA Blood (test code = Negative (11/21/22 9:39 UA Blood) AM) [facility] AND [id number] 15:39:00 Test Item Value Reference Range Interpretation Comments UA Urobilinogen (test code = UA no gt 0.1-1.0 Urobilinogen) [facility] AND [id number] 15:39:00 Test Item Value Reference Range Interpretation Comments UA Nitrite (test code Negative (11/21/22 9:39 = UA Nitrite) AM) [facility] AND [id number] 15:39:00 Test Item Value Reference Range Interpretation Comments UA Leuk Est (test Negative (11/21/22 9:39 code = UA Leuk Est) AM) [facility] AND [id number] 15:39:00 Test Item Value Reference Range Interpretation Comments UA Sq Epi (test code = UA Sq Occasional /LPF Epi) [facility] AND [id number] 15:39:00 Test Item Value Reference Range Interpretation Comments UA WBC (test code = no gt See_Comment [Automa sheba message] The UA WBC) system which ge nerated this result transmit sheba reference range : <=5. The reference range was not used to interpr et this result as edy l/abnormal. [facility] AND [id number] 15:39:00 Test Item Value Reference Range Interpretation Comments UA RBC (test code = no gt See_Comment [Automa sheba message] The UA RBC) system which ge nerated this result transmit sheba reference range : <=2. The reference range was not used to interpr et this result as edy l/abnormal. [facility] AND [id number] 15:39:00 Test Item Value Reference Range Interpretation Comments UA Color (test code = Light Yellow UA Color) *NA*(11/21/22 9:39 AM) [facility] AND [id number] 15:39:00 Test Item Value Reference Range Interpretation Comments UA Turbidity (test code = Clear (11/21/22 9:39 UA Turbidity) AM) [facility] AND [id number] 15:39:00 Test Item Value Reference Range Interpretation Comments UA Spec Grav (test code = UA Spec 1.014 1 Grav) [facility] AND [id number] 15:39:00 Test Item Value Reference Range Interpretation Comments UA pH (test code = UA pH) 6.0 1 5.0-8.0 [facility] AND [id number] 15:39:00 Test Item Value Reference Range Interpretation Comments UA Protein (test code = UA Protein) 30 mg/dL [facility] AND [id number] 15:39:00 Test Item Value Reference Range Interpretation Comments UA Glucose (test code = UA Negative mg/dL Glucose) [facility] AND [id number] 15:39:00 Test Item Value Reference Range Interpretation Comments UA Ketones (test code = UA Negative mg/dL Ketones) [facility] AND [id number] 15:39:00 Test Item Value Reference Range Interpretation Comments UA Bili (test code = Negative *NA*(11/21/22 UA Bili) 9:39 AM) [facility] AND [id number] 15:39:00 Test Item Value Reference Range Interpretation Comments UA Blood (test code = Negative (11/21/22 9:39 UA Blood) AM) [facility] AND [id number] 15:39:00 Test Item Value Reference Range Interpretation Comments UA Urobilinogen (test code = UA no gt 0.1-1.0 Urobilinogen) [facility] AND [id number] 15:39:00 Test Item Value Reference Range Interpretation Comments UA Nitrite (test code Negative (11/21/22 9:39 = UA Nitrite) AM) [facility] AND [id number] 15:39:00 Test Item Value Reference Range Interpretation Comments UA Leuk Est (test Negative (11/21/22 9:39 code = UA Leuk Est) AM) [facility] [id number] 15:39:00 Test Item Value Reference Range Interpretation Comments UA Sq Epi (test code = UA Sq Occasional /LPF Epi) [facility] [id number] 15:39:00 Test Item Value Reference Range Interpretation Comments UA WBC (test code = no gt See_Comment [Automa sheba message] The UA WBC) system which ge nerated this result transmit sheba reference range : <=5. The reference range was not used to interpr et this result as edy l/abnormal. [facility] [id number] 15:39:00 Test Item Value Reference Range Interpretation Comments UA RBC (test code = no gt See_Comment [Automa sheba message] The UA RBC) system which ge nerated this result transmit sheba reference range : <=2. The reference range was not used to interpr et this result as edy l/abnormal. [id number] 15:39:00 Test Item Value Reference Range Interpretation Comments U Amph Scr (test code Negative *NA*(11/21/22 = U Amph Scr) 9:39 AM) [id number] 15:39:00 Test Item Value Reference Range Interpretation Comments U Analilia Scr (test code Positive *ABN*(11/21/22 = U Analilia Scr) 9:39 AM) [id number] 15:39:00 Test Item Value Reference Range Interpretation Comments U Benzodiaz Scr (test Negative *NA*(11/21/22 code = U Benzodiaz Scr) 9:39 AM) [id number] 15:39:00 Test Item Value Reference Range Interpretation Comments U Cocaine Scr (test Negative *NA*(11/21/22 code = U Cocaine Scr) 9:39 AM) [facility] [id number] 15:39:00 Test Item Value Reference Range Interpretation Comments U Cannab Scr (test Negative *NA*(11/21/22 code = U Cannab Scr) 9:39 AM) [id number] 15:39:00 Test Item Value Reference Range Interpretation Comments U Opiate Scr (test Positive *ABN*(11/21/22 code = U Opiate Scr) 9:39 AM) [facility] [id number] 15:39:00 Test Item Value Reference Range Interpretation Comments U Phencyclidine Scr (test Negative code = U Phencyclidine *NA*(11/21/22 9:39 Scr) AM) [facility] [id number] 15:39:00 Test Item Value Reference Range Interpretation Comments UDS Note (test code = See Note (11/21/22 9:39 UDS Note) AM) [facility] [id number] 15:39:00 Test Item Value Reference Range Interpretation Comments U Amph Scr (test code Negative *NA*(11/21/22 = U Amph Scr) 9:39 AM) [facility] [id number] 15:39:00 Test Item Value Reference Range Interpretation Comments U Analilia Scr (test code Positive *ABN*(11/21/22 = U Analilia Scr) 9:39 AM) [facility] [id number] 15:39:00 Test Item Value Reference Range Interpretation Comments U Benzodiaz Scr (test Negative *NA*(11/21/22 code = U Benzodiaz Scr) 9:39 AM) [facility] [id number] 15:39:00 Test Item Value Reference Range Interpretation Comments U Cocaine Scr (test Negative *NA*(11/21/22 code = U Cocaine Scr) 9:39 AM) [facility] [id number] 15:39:00 Test Item Value Reference Range Interpretation Comments U Cannab Scr (test Negative *NA*(11/21/22 code = U Cannab Scr) 9:39 AM) [facility] [id number] 15:39:00 Test Item Value Reference Range Interpretation Comments U Opiate Scr (test Positive *ABN*(11/21/22 code = U Opiate Scr) 9:39 AM) [facility] [id number] 15:39:00 Test Item Value Reference Range Interpretation Comments U Phencyclidine Scr (test Negative code = U Phencyclidine *NA*(11/21/22 9:39 Scr) AM) [facility] [id number] 15:39:00 Test Item Value Reference Range Interpretation Comments UDS Note (test code = See Note (11/21/22 9:39 UDS Note) AM) [facility] [id number] 15:39:00 Test Item Value Reference Range Interpretation Comments Coronavirus (COVID-19) Not Detected (11/21/22 JONATHAN (test code = 9:39 AM) Coronavirus (COVID-19) JONATHAN) [facility] [id number] 15:39:00 Test Item Value Reference Range Interpretation Comments Coronavirus (COVID-19) Not Detected (11/21/22 JONATHAN (test code = 9:39 AM) Coronavirus (COVID-19) JONATHAN) [facility] [id number] 15:39:00 Test Item Value Reference Range Interpretation Comments UA Color (test code = Light Yellow UA Color) *NA*(11/21/22 9:39 AM) [facility] [id number] 15:39:00 Test Item Value Reference Range Interpretation Comments UA Turbidity (test code = Clear (11/21/22 9:39 UA Turbidity) AM) [facility] [id number] 15:39:00 Test Item Value Reference Range Interpretation Comments UA Spec Grav (test code = UA Spec 1.014 1 Grav) [facility] [id number] 15:39:00 Test Item Value Reference Range Interpretation Comments UA pH (test code = UA pH) 6.0 1 5.0-8.0 [facility] [id number] 15:39:00 Test Item Value Reference Range Interpretation Comments UA Protein (test code = UA Protein) 30 mg/dL [facility] [id number] 15:39:00 Test Item Value Reference Range Interpretation Comments UA Glucose (test code = UA Negative mg/dL Glucose) [facility] [id number] 15:39:00 Test Item Value Reference Range Interpretation Comments UA Ketones (test code = UA Negative mg/dL Ketones) [facility] [id number] 15:39:00 Test Item Value Reference Range Interpretation Comments UA Bili (test code = Negative *NA*(11/21/22 UA Bili) 9:39 AM) [facility] [id number] 15:39:00 Test Item Value Reference Range Interpretation Comments UA Blood (test code = Negative (11/21/22 9:39 UA Blood) AM) [facility] [id number] 15:39:00 Test Item Value Reference Range Interpretation Comments UA Urobilinogen (test code = UA no gt 0.1-1.0 Urobilinogen) [facility] [id number] 15:39:00 Test Item Value Reference Range Interpretation Comments UA Nitrite (test code Negative (11/21/22 9:39 = UA Nitrite) AM) [facility] [id number] 15:39:00 Test Item Value Reference Range Interpretation Comments UA Leuk Est (test Negative (11/21/22 9:39 code = UA Leuk Est) AM) [facility] AND [id number] 15:39:00 Test Item Value Reference Range Interpretation Comments UA Sq Epi (test code = UA Sq Occasional /LPF Epi) [facility] AND [id number] 15:39:00 Test Item Value Reference Range Interpretation Comments UA WBC (test code = no gt See_Comment [Automa sheba message] The UA WBC) system which ge nerated this result transmit sheba reference range : <=5. The reference range was not used to interpr et this result as edy l/abnormal. [facility] AND [id number] 15:39:00 Test Item Value Reference Range Interpretation Comments UA RBC (test code = no gt See_Comment [Automa sheba message] The UA RBC) system which ge nerated this result transmit sheba reference range : <=2. The reference range was not used to interpr et this result as edy l/abnormal. [facility] AND [id number] 15:39:00 Test Item Value Reference Range Interpretation Comments UA Color (test code = Light Yellow UA Color) *NA*(11/21/22 9:39 AM) [facility] AND [id number] 15:39:00 Test Item Value Reference Range Interpretation Comments UA Turbidity (test code = Clear (11/21/22 9:39 UA Turbidity) AM) [facility] AND [id number] 15:39:00 Test Item Value Reference Range Interpretation Comments UA Spec Grav (test code = UA Spec 1.014 1 Grav) [facility] AND [id number] 15:39:00 Test Item Value Reference Range Interpretation Comments UA pH (test code = UA pH) 6.0 1 5.0-8.0 [facility] AND [id number] 15:39:00 Test Item Value Reference Range Interpretation Comments UA Protein (test code = UA Protein) 30 mg/dL [facility] AND [id number] 15:39:00 Test Item Value Reference Range Interpretation Comments UA Glucose (test code = UA Negative mg/dL Glucose) [facility] AND [id number] 15:39:00 Test Item Value Reference Range Interpretation Comments UA Ketones (test code = UA Negative mg/dL Ketones) [facility] AND [id number] 15:39:00 Test Item Value Reference Range Interpretation Comments UA Bili (test code = Negative *NA*(11/21/22 UA Bili) 9:39 AM) [facility] AND [id number] 15:39:00 Test Item Value Reference Range Interpretation Comments UA Blood (test code = Negative (11/21/22 9:39 UA Blood) AM) [facility] AND [id number] 15:39:00 Test Item Value Reference Range Interpretation Comments UA Urobilinogen (test code = UA no gt 0.1-1.0 Urobilinogen) [facility] AND [id number] 15:39:00 Test Item Value Reference Range Interpretation Comments UA Nitrite (test code Negative (11/21/22 9:39 = UA Nitrite) AM) [facility] AND [id number] 15:39:00 Test Item Value Reference Range Interpretation Comments UA Leuk Est (test Negative (11/21/22 9:39 code = UA Leuk Est) AM) [facility] AND [id number] 15:39:00 Test Item Value Reference Range Interpretation Comments UA Sq Epi (test code = UA Sq Occasional /LPF Epi) [facility] AND [id number] 15:39:00 Test Item Value Reference Range Interpretation Comments UA WBC (test code = no gt See_Comment [Automa sheba message] The UA WBC) system which ge nerated this result transmit sheba reference range : <=5. The reference range was not used to interpr et this result as edy l/abnormal. [facility] [id number] 15:39:00 Test Item Value Reference Range Interpretation Comments UA RBC (test code = no gt See_Comment [Automa sheba message] The UA RBC) system which ge nerated this result transmit sheba reference range : <=2. The reference range was not used to interpr et this result as edy l/abnormal. [id number] 15:39:00 Test Item Value Reference Range Interpretation Comments U Amph Scr (test code Negative *NA*(11/21/22 = U Amph Scr) 9:39 AM) [facility] [id number] 15:39:00 Test Item Value Reference Range Interpretation Comments U Analilia Scr (test code Positive *ABN*(11/21/22 = U Analilia Scr) 9:39 AM) [id number] 15:39:00 Test Item Value Reference Range Interpretation Comments U Benzodiaz Scr (test Negative *NA*(11/21/22 code = U Benzodiaz Scr) 9:39 AM) [facility] [id number] 15:39:00 Test Item Value Reference Range Interpretation Comments U Cocaine Scr (test Negative *NA*(11/21/22 code = U Cocaine Scr) 9:39 AM) [id number] 15:39:00 Test Item Value Reference Range Interpretation Comments U Cannab Scr (test Negative *NA*(11/21/22 code = U Cannab Scr) 9:39 AM) [facility] [id number] 15:39:00 Test Item Value Reference Range Interpretation Comments U Opiate Scr (test Positive *ABN*(11/21/22 code = U Opiate Scr) 9:39 AM) [facility] [id number] 15:39:00 Test Item Value Reference Range Interpretation Comments U Phencyclidine Scr (test Negative code = U Phencyclidine *NA*(11/21/22 9:39 Scr) AM) [facility] [id number] 15:39:00 Test Item Value Reference Range Interpretation Comments UDS Note (test code = See Note (11/21/22 9:39 UDS Note) AM) [facility] [id number] 15:39:00 Test Item Value Reference Range Interpretation Comments U Amph Scr (test code Negative *NA*(11/21/22 = U Amph Scr) 9:39 AM) [facility] [id number] 15:39:00 Test Item Value Reference Range Interpretation Comments U Analilia Scr (test code Positive *ABN*(11/21/22 = U Analilia Scr) 9:39 AM) [facility] [id number] 15:39:00 Test Item Value Reference Range Interpretation Comments U Benzodiaz Scr (test Negative *NA*(11/21/22 code = U Benzodiaz Scr) 9:39 AM) [facility] [id number] 15:39:00 Test Item Value Reference Range Interpretation Comments U Cocaine Scr (test Negative *NA*(11/21/22 code = U Cocaine Scr) 9:39 AM) [facility] [id number] 15:39:00 Test Item Value Reference Range Interpretation Comments U Cannab Scr (test Negative *NA*(11/21/22 code = U Cannab Scr) 9:39 AM) [facility] [id number] 15:39:00 Test Item Value Reference Range Interpretation Comments U Opiate Scr (test Positive *ABN*(11/21/22 code = U Opiate Scr) 9:39 AM) [facility] [id number] 15:39:00 Test Item Value Reference Range Interpretation Comments U Phencyclidine Scr (test Negative code = U Phencyclidine *NA*(11/21/22 9:39 Scr) AM) [facility] [id number] 15:39:00 Test Item Value Reference Range Interpretation Comments UDS Note (test code = See Note (11/21/22 9:39 UDS Note) AM) [facility] [id number] 15:39:00 Test Item Value Reference Range Interpretation Comments Coronavirus (COVID-19) Not Detected (11/21/22 JONATHAN (test code = 9:39 AM) Coronavirus (COVID-19) JONATHAN) [id number] 15:39:00 Test Item Value Reference Range Interpretation Comments Coronavirus (COVID-19) Not Detected (11/21/22 JONATHAN (test code = 9:39 AM) Coronavirus (COVID-19) JONATHAN) [facility] AND [id number] 15:39:00 Test Item Value Reference Range Interpretation Comments UA Color (test code = Light Yellow UA Color) *NA*(11/21/22 9:39 AM) [facility] AND [id number] 15:39:00 Test Item Value Reference Range Interpretation Comments UA Turbidity (test code = Clear (11/21/22 9:39 UA Turbidity) AM) [facility] AND [id number] 15:39:00 Test Item Value Reference Range Interpretation Comments UA Spec Grav (test code = UA Spec 1.014 1 Grav) [facility] AND [id number] 15:39:00 Test Item Value Reference Range Interpretation Comments UA pH (test code = UA pH) 6.0 1 5.0-8.0 [facility] AND [id number] 15:39:00 Test Item Value Reference Range Interpretation Comments UA Protein (test code = UA Protein) 30 mg/dL [facility] AND [id number] 15:39:00 Test Item Value Reference Range Interpretation Comments UA Glucose (test code = UA Negative mg/dL Glucose) [facility] AND [id number] 15:39:00 Test Item Value Reference Range Interpretation Comments UA Ketones (test code = UA Negative mg/dL Ketones) [facility] AND [id number] 15:39:00 Test Item Value Reference Range Interpretation Comments UA Bili (test code = Negative *NA*(11/21/22 UA Bili) 9:39 AM) [facility] AND [id number] 15:39:00 Test Item Value Reference Range Interpretation Comments UA Blood (test code = Negative (11/21/22 9:39 UA Blood) AM) [facility] AND [id number] 15:39:00 Test Item Value Reference Range Interpretation Comments UA Urobilinogen (test code = UA no gt 0.1-1.0 Urobilinogen) [facility] AND [id number] 15:39:00 Test Item Value Reference Range Interpretation Comments UA Nitrite (test code Negative (11/21/22 9:39 = UA Nitrite) AM) [facility] [id number] 15:39:00 Test Item Value Reference Range Interpretation Comments UA Leuk Est (test Negative (11/21/22 9:39 code = UA Leuk Est) AM) [facility] [id number] 15:39:00 Test Item Value Reference Range Interpretation Comments UA Sq Epi (test code = UA Sq Occasional /LPF Epi) [facility] [id number] 15:39:00 Test Item Value Reference Range Interpretation Comments UA WBC (test code = UA WBC) no gt <=5 [facility] [id number] 15:39:00 Test Item Value Reference Range Interpretation Comments UA RBC (test code = UA RBC) no gt <=2 [facility] [id number] 15:39:00 Test Item Value Reference Range Interpretation Comments UA Color (test code = Light Yellow UA Color) *NA*(11/21/22 9:39 AM) [facility] [id number] 15:39:00 Test Item Value Reference Range Interpretation Comments UA Turbidity (test code = Clear (11/21/22 9:39 UA Turbidity) AM) [facility] [id number] 15:39:00 Test Item Value Reference Range Interpretation Comments UA Spec Grav (test code = UA Spec 1.014 1 Grav) [facility] [id number] 15:39:00 Test Item Value Reference Range Interpretation Comments UA pH (test code = UA pH) 6.0 1 5.0-8.0 [facility] [id number] 15:39:00 Test Item Value Reference Range Interpretation Comments UA Protein (test code = UA Protein) 30 mg/dL [facility] [id number] 15:39:00 Test Item Value Reference Range Interpretation Comments UA Glucose (test code = UA Negative mg/dL Glucose) [facility] [id number] 15:39:00 Test Item Value Reference Range Interpretation Comments UA Ketones (test code = UA Negative mg/dL Ketones) [facility] [id number] 15:39:00 Test Item Value Reference Range Interpretation Comments UA Bili (test code = Negative *NA*(11/21/22 UA Bili) 9:39 AM) [facility] [id number] 15:39:00 Test Item Value Reference Range Interpretation Comments UA Blood (test code = Negative (11/21/22 9:39 UA Blood) AM) [facility] [id number] 15:39:00 Test Item Value Reference Range Interpretation Comments UA Urobilinogen (test code = UA no gt 0.1-1.0 Urobilinogen) [facility] [id number] 15:39:00 Test Item Value Reference Range Interpretation Comments UA Nitrite (test code Negative (11/21/22 9:39 = UA Nitrite) AM) [facility] [id number] 15:39:00 Test Item Value Reference Range Interpretation Comments UA Leuk Est (test Negative (11/21/22 9:39 code = UA Leuk Est) AM) [facility] [id number] 15:39:00 Test Item Value Reference Range Interpretation Comments UA Sq Epi (test code = UA Sq Occasional /LPF Epi) [facility] [id number] 15:39:00 Test Item Value Reference Range Interpretation Comments UA WBC (test code = UA WBC) no gt <=[address] [facility] [id number] 15:39:00 Test Item Value Reference Range Interpretation Comments UA RBC (test code = UA RBC) no gt <=2 [facility] [id number] 15:39:00 Test Item Value Reference Range Interpretation Comments U Amph Scr (test code Negative *NA*(11/21/22 = U Amph Scr) 9:39 AM) [facility] [id number] 15:39:00 Test Item Value Reference Range Interpretation Comments U Analilia Scr (test code Positive *ABN*(11/21/22 = U Analilia Scr) 9:39 AM) [facility] [id number] 15:39:00 Test Item Value Reference Range Interpretation Comments U Benzodiaz Scr (test Negative *NA*(11/21/22 code = U Benzodiaz Scr) 9:39 AM) [id number] 15:39:00 Test Item Value Reference Range Interpretation Comments U Cocaine Scr (test Negative *NA*(11/21/22 code = U Cocaine Scr) 9:39 AM) [facility] [id number] 15:39:00 Test Item Value Reference Range Interpretation Comments U Cannab Scr (test Negative *NA*(11/21/22 code = U Cannab Scr) 9:39 AM) [facility] [id number] 15:39:00 Test Item Value Reference Range Interpretation Comments U Opiate Scr (test Positive *ABN*(11/21/22 code = U Opiate Scr) 9:39 AM) [facility] [id number] 15:39:00 Test Item Value Reference Range Interpretation Comments U Phencyclidine Scr (test Negative code = U Phencyclidine *NA*(11/21/22 9:39 Scr) AM) [facility] [id number] 15:39:00 Test Item Value Reference Range Interpretation Comments UDS Note (test code = See Note (11/21/22 9:39 UDS Note) AM) [facility] [id number] 15:39:00 Test Item Value Reference Range Interpretation Comments U Amph Scr (test code Negative *NA*(11/21/22 = U Amph Scr) 9:39 AM) [facility] [id number] 15:39:00 Test Item Value Reference Range Interpretation Comments U Analilia Scr (test code Positive *ABN*(11/21/22 = U Analilia Scr) 9:39 AM) [facility] [id number] 15:39:00 Test Item Value Reference Range Interpretation Comments U Benzodiaz Scr (test Negative *NA*(11/21/22 code = U Benzodiaz Scr) 9:39 AM) [facility] [id number] 15:39:00 Test Item Value Reference Range Interpretation Comments U Cocaine Scr (test Negative *NA*(11/21/22 code = U Cocaine Scr) 9:39 AM) [facility] [id number] 15:39:00 Test Item Value Reference Range Interpretation Comments U Cannab Scr (test Negative *NA*(11/21/22 code = U Cannab Scr) 9:39 AM) [facility] [id number] 15:39:00 Test Item Value Reference Range Interpretation Comments U Opiate Scr (test Positive *ABN*(11/21/22 code = U Opiate Scr) 9:39 AM) [facility] [id number] 15:39:00 Test Item Value Reference Range Interpretation Comments U Phencyclidine Scr (test Negative code = U Phencyclidine *NA*(11/21/22 9:39 Scr) AM) [facility] [id number] 15:39:00 Test Item Value Reference Range Interpretation Comments UDS Note (test code = See Note (11/21/22 9:39 UDS Note) AM) [facility] [id number] 15:39:00 Test Item Value Reference Range Interpretation Comments Coronavirus (COVID-19) Not Detected (11/21/22 JONATHAN (test code = 9:39 AM) Coronavirus (COVID-19) JONATHAN) [facility] [id number] 15:39:00 Test Item Value Reference Range Interpretation Comments Coronavirus (COVID-19) Not Detected (11/21/22 JONATHAN (test code = 9:39 AM) Coronavirus (COVID-19) JONATHAN) [facility] [id number] 15:39:00 Test Item Value Reference Range Interpretation Comments UA Color (test code = Light Yellow UA Color) *NA*(11/21/22 9:39 AM) [facility] [id number] 15:39:00 Test Item Value Reference Range Interpretation Comments UA Turbidity (test code = Clear (11/21/22 9:39 UA Turbidity) AM) [facility] [id number] 15:39:00 Test Item Value Reference Range Interpretation Comments UA Spec Grav (test code = UA Spec 1.014 1 Grav) [facility] AND [id number] 15:39:00 Test Item Value Reference Range Interpretation Comments UA pH (test code = UA pH) 6.0 1 5.0-8.0 [facility] [id number] 15:39:00 Test Item Value Reference Range Interpretation Comments UA Protein (test code = UA Protein) 30 mg/dL [facility] [id number] 15:39:00 Test Item Value Reference Range Interpretation Comments UA Glucose (test code = UA Negative mg/dL Glucose) [facility] [id number] 15:39:00 Test Item Value Reference Range Interpretation Comments UA Ketones (test code = UA Negative mg/dL Ketones) [facility] [id number] 15:39:00 Test Item Value Reference Range Interpretation Comments UA Bili (test code = Negative *NA*(11/21/22 UA Bili) 9:39 AM) [facility] [id number] 15:39:00 Test Item Value Reference Range Interpretation Comments UA Blood (test code = Negative (11/21/22 9:39 UA Blood) AM) [facility] [id number] 15:39:00 Test Item Value Reference Range Interpretation Comments UA Urobilinogen (test code = UA no gt 0.1-1.0 Urobilinogen) [facility] [id number] 15:39:00 Test Item Value Reference Range Interpretation Comments UA Nitrite (test code Negative (11/21/22 9:39 = UA Nitrite) AM) [facility] [id number] 15:39:00 Test Item Value Reference Range Interpretation Comments UA Leuk Est (test Negative (11/21/22 9:39 code = UA Leuk Est) AM) [facility] [id number] 15:39:00 Test Item Value Reference Range Interpretation Comments UA Sq Epi (test code = UA Sq Occasional /LPF Epi) [facility] [id number] 15:39:00 Test Item Value Reference Range Interpretation Comments UA WBC (test code = UA WBC) no gt <=5 [facility] [id number] 15:39:00 Test Item Value Reference Range Interpretation Comments UA RBC (test code = UA RBC) no gt <=2 [facility] [id number] 15:39:00 Test Item Value Reference Range Interpretation Comments UA Color (test code = Light Yellow UA Color) *NA*(11/21/22 9:39 AM) [facility] [id number] 15:39:00 Test Item Value Reference Range Interpretation Comments UA Turbidity (test code = Clear (11/21/22 9:39 UA Turbidity) AM) [facility] [id number] 15:39:00 Test Item Value Reference Range Interpretation Comments UA Spec Grav (test code = UA Spec 1.014 1 Grav) [facility] [id number] 15:39:00 Test Item Value Reference Range Interpretation Comments UA pH (test code = UA pH) 6.0 1 5.0-8.0 [facility] [id number] 15:39:00 Test Item Value Reference Range Interpretation Comments UA Protein (test code = UA Protein) 30 mg/dL [facility] AND [id number] 15:39:00 Test Item Value Reference Range Interpretation Comments UA Glucose (test code = UA Negative mg/dL Glucose) [facility] AND [id number] 15:39:00 Test Item Value Reference Range Interpretation Comments UA Ketones (test code = UA Negative mg/dL Ketones) [facility] AND [id number] 15:39:00 Test Item Value Reference Range Interpretation Comments UA Bili (test code = Negative *NA*(11/21/22 UA Bili) 9:39 AM) [facility] AND [id number] 15:39:00 Test Item Value Reference Range Interpretation Comments UA Blood (test code = Negative (11/21/22 9:39 UA Blood) AM) [facility] AND [id number] 15:39:00 Test Item Value Reference Range Interpretation Comments UA Urobilinogen (test code = UA no gt 0.1-1.0 Urobilinogen) [facility] AND [id number] 15:39:00 Test Item Value Reference Range Interpretation Comments UA Nitrite (test code Negative (11/21/22 9:39 = UA Nitrite) AM) [facility] AND [id number] 15:39:00 Test Item Value Reference Range Interpretation Comments UA Leuk Est (test Negative (11/21/22 9:39 code = UA Leuk Est) AM) [facility] [id number] 15:39:00 Test Item Value Reference Range Interpretation Comments UA Sq Epi (test code = UA Sq Occasional /LPF Epi) [facility] AND [id number] 15:39:00 Test Item Value Reference Range Interpretation Comments UA WBC (test code = UA WBC) no gt <=5 [facility] AND [id number] 15:39:00 Test Item Value Reference Range Interpretation Comments UA RBC (test code = UA RBC) no gt <=2 [facility] [id number] 12:50:00 Test Item Value Reference Range Interpretation Comments ABO/Rh (test code = ABO/Rh) O POS [facility] CampusNativeflow [facility] [id number] 12:50:00 Test Item Value Reference Range Interpretation Comments Antibody Scrn (test Negative (11/21/22 6:50 code = Antibody Scrn) AM) [facility] [id number] 12:50:00 Test Item Value Reference Range Interpretation Comments Ethanol Lvl (test code = Ethanol Lvl) no gt [facility] [id number] 12:50:00 Test Item Value Reference Range Interpretation Comments Etoh (%) (test code = Etoh (%)) no gt [facility] [id number] 12:50:00 Test Item Value Reference Range Interpretation Comments Lactic Acid Lvl (test code = Lactic 0.7 0.5-2.2 Acid Lvl) [facility] [id number] 12:50:00 Test Item Value Reference Range Interpretation Comments Total Protein (test code = Total 6.1 6.4-8.4 Protein) [facility] [id number] 12:50:00 Test Item Value Reference Range Interpretation Comments Albumin Lvl (test code = Albumin Lvl) 2.9 3.5-5.0 [facility] [id number] 12:50:00 Test Item Value Reference Range Interpretation Comments Globulin (test code = Globulin) 3.2 2.7-4.2 [facility] [id number] 12:50:00 Test Item Value Reference Range Interpretation Comments A/G Ratio (test code = A/G Ratio) 0.9 1 0.7-1.6 [facility] Te[id number] 12:50:00 Test Item Value Reference Range Interpretation Comments ALT (test code = ALT) 16 See_Comment [Auto mated message] The system which ge nerated this result transmit sheba reference range : <=65. The reference range was not used to interpr et this result as edy l/abnormal. [facility] TexasJgvpyurPBJTZVXIR7265-13-10 12:50:00 Test Item Value Reference Range Interpretation Comments AST (test code = AST) 15 See_Comment [Auto mated message] The system which ge nerated this result transmit sheba reference range : <=37. The reference range was not used to interpr et this result as edy l/abnormal. [facility] [id number] 12:50:00 Test Item Value Reference Range Interpretation Comments Alk Phos (test code = Alk Phos) 96 39-136 [place] 922233-02-21 12:50:00 Test Item Value Reference Range Interpretation Comments Bili Total (test code = Bili Total) 0.2 0.2-1.3 [place] 922233-02-21 12:50:00 Test Item Value Reference Range Interpretation Comments Bili Direct (test code no gt See_Comment [Aut omated message] The = Bili Direct) system which generated this result tra nsmitted reference range : <=0.3. The reference r christiano was not used to int erpret this result as edy l/abnormal. [facility] [id number] 12:50:00 Test Item Value Reference Range Interpretation Comments Bili Indirect Unable to See_Comment [Automated (test code = Bili Calculate message] T he system Indirect) which generated this result transmitted reference range : <=1.0. The reference range was not used to interpret this result as normal/abnormal . [facility] [id number] 12:50:00 Test Item Value Reference Range Interpretation Comments HS Troponin I (test code = HS Troponin 15 I) [facility] [id number] 12:50:00 Test Item Value Reference Range Interpretation Comments pH Justin (test code = pH Justin) 7.35 1 7.28-7.42 [place] 922233-02-21 12:50:00 Test Item Value Reference Range Interpretation Comments pCO2 Justin (test code = pCO2 Justin) 55 38-52 [place] 922233-02-21 12:50:00 Test Item Value Reference Range Interpretation Comments pO2 Justin (test code = pO2 Justin) 43 20-49 [place] 922233-02-21 12:50:00 Test Item Value Reference Range Interpretation Comments HCO3 Justin (test code = HCO3 Justin) 30 22-26 [place] 922233-02-21 12:50:00 Test Item Value Reference Range Interpretation Comments BE Justin (test code = BE Justin) 3 -2-2 [place] 922233-02-21 12:50:00 Test Item Value Reference Range Interpretation Comments O2 Sat Justin (calc) (test code = O2 Sat 75.9 40.0-70.0 Justin (calc)) [facility] [id number] 12:50:00 Test Item Value Reference Range Interpretation Comments Temp Justin (test code = Temp Justin) 37.0 [place] 963423-02-21 12:50:00 Test Item Value Reference Range Interpretation Comments ACT (TEG) Rapid (test code = ACT (TEG) 113 s 86-118 Rapid) [place] 963423-02-21 12:50:00 Test Item Value Reference Range Interpretation Comments Split Point Rapid (test code = Split 0.6 min Point Rapid) [place] 963423-02-21 12:50:00 Test Item Value Reference Range Interpretation Comments R-time Rapid (test code = R-time 0.7 min 0.4-0.7 Rapid) [place] 963423-02-21 12:50:00 Test Item Value Reference Range Interpretation Comments K-time Rapid (test code = K-time 1.1 min 0.6-2.3 Rapid) [place] 963423-02-21 12:50:00 Test Item Value Reference Range Interpretation Comments Angle Rapid (test code = Angle 78 degrees 64-80 Rapid) [place] [address]-02-21 12:50:00 Test Item Value Reference Range Interpretation Comments Max Amplitude Rapid (test code = Max 65 mm 52-71 Amplitude Rapid) [place] 963423-02-21 12:50:00 Test Item Value Reference Range Interpretation Comments G-value Rapid (test code = G-value 9.2 5.0-11.6 Rapid) [place] [address]-02-21 12:50:00 Test Item Value Reference Range Interpretation Comments Estimated % Lysis Rapid 0.0 See_Comment [Au tomated message] The (test code = Estimated syste m which generated % Lysis Rapid) this result t ransmitted reference range : <=7.5. The reference r christiano was not used to int erpret this result as normal/abnormal . [place] 963423-02-21 12:50:00 Test Item Value Reference Range Interpretation Comments Plt Morph (test code = See Note 1(11/21/22 Plt Morph) 6:50 AM) [facility]FebzhwlKNJFHMWWFG6926-18-48 12:50:00 Test Item Value Reference Range Interpretation Comments Stomatocyte (test code = Stomatocyte) slight [facility] CampusNativeflow [facility] [id number] 12:50:00 Test Item Value Reference Range Interpretation Comments ABO/Rh (test code = ABO/Rh) O POS [facility]aleViva VisionNativeflow [facility] [id number] 12:50:00 Test Item Value Reference Range Interpretation Comments Antibody Scrn (test Negative (11/21/22 6:50 code = Antibody Scrn) AM) [facility] SunnyvaleQbwnkkfTVNKJTGHI5329-69-52 12:50:00 Test Item Value Reference Range Interpretation Comments Ethanol Lvl (test code = Ethanol Lvl) no gt [facility] SunnyvaleGplnsivWXIWPKKWO1388-25-16 12:50:00 Test Item Value Reference Range Interpretation Comments Etoh (%) (test code = Etoh (%)) no gt [facility] SunnyvaleYmfodzvMSUVZQXGU4421-74-11 12:50:00 Test Item Value Reference Range Interpretation Comments Lactic Acid Lvl (test code = Lactic 0.7 0.5-2.2 Acid Lvl) [facility] SunnyvaleIgfergrKMEMIOCVL9776-96-60 12:50:00 Test Item Value Reference Range Interpretation Comments Total Protein (test code = Total 6.1 6.4-8.4 Protein) [facility] SunnyvaleOxwgmebYECKOCYRU7102-76-16 12:50:00 Test Item Value Reference Range Interpretation Comments Albumin Lvl (test code = Albumin Lvl) 2.9 3.5-5.0 [facility] SunnyvaleFuucbyeYYQVZICFW0286-08-51 12:50:00 Test Item Value Reference Range Interpretation Comments Globulin (test code = Globulin) 3.2 2.7-4.2 [facility] SunnyvaleLmreqzoEOXFTQJAE0630-81-62 12:50:00 Test Item Value Reference Range Interpretation Comments A/G Ratio (test code = A/G Ratio) 0.9 1 0.7-1.6 [facility] SunnyvaleTksxpfrVOVEUZJFA8934-36-15 12:50:00 Test Item Value Reference Range Interpretation Comments ALT (test code = ALT) 16 See_Comment [Auto mated message] The system which ge nerated this result transmit sheba reference range : <=65. The reference range was not used to interpr et this result as edy l/abnormal. [facility] CenterEmorrmzSTPPQALBM2528-26-10 12:50:00 Test Item Value Reference Range Interpretation Comments AST (test code = AST) 15 See_Comment [Auto mated message] The system which ge nerated this result transmit sheba reference range : <=37. The reference range was not used to interpr et this result as edy l/abnormal. [facility] CenterUhktamwTHBYGJTFI0118-52-18 12:50:00 Test Item Value Reference Range Interpretation Comments Alk Phos (test code = Alk Phos) 96 39-136 [facility] TexasInxdezsCBUOQMRRF8253-84-98 12:50:00 Test Item Value Reference Range Interpretation Comments Bili Total (test code = Bili Total) 0.2 0.2-1.3 [facility] TexasQbzutoaFUOYKTPJO1574-63-42 12:50:00 Test Item Value Reference Range Interpretation Comments Bili Direct (test code no gt See_Comment [Aut omated message] The = Bili Direct) system which generated this result tra nsmitted reference range : <=0.3. The reference r christiano was not used to int erpret this result as edy l/abnormal. [facility] CenterQjvfimwXNMTZHCSK6743-60-28 12:50:00 Test Item Value Reference Range Interpretation Comments Bili Indirect Unable to See_Comment [Automated (test code = Bili Calculate message] T he system Indirect) which generated this result transmitted reference range : <=1.0. The reference range was not used to interpret this result as normal/abnormal . [facility] CenterXgqcreqPRYCDKUJI0248-10-93 12:50:00 Test Item Value Reference Range Interpretation Comments HS Troponin I (test code = HS Troponin 15 I) [facility] TexasYhtghxlCKQHMTAUH7297-51-54 12:50:00 Test Item Value Reference Range Interpretation Comments pH Justin (test code = pH Justin) 7.35 1 7.28-7.42 [place] 922233-02-21 12:50:00 Test Item Value Reference Range Interpretation Comments pCO2 Justin (test code = pCO2 Justin) 55 38-52 [facility] TexasOjljghfMNPJNTKGN4999-24-26 12:50:00 Test Item Value Reference Range Interpretation Comments pO2 Justin (test code = pO2 Justin) 43 20-49 [place] 922233-02-21 12:50:00 Test Item Value Reference Range Interpretation Comments HCO3 Justin (test code = HCO3 Justin) 30 22-26 [place] 922233-02-21 12:50:00 Test Item Value Reference Range Interpretation Comments BE Justin (test code = BE Justin) 3 -2-2 [place] 922233-02-21 12:50:00 Test Item Value Reference Range Interpretation Comments O2 Sat Justin (calc) (test code = O2 Sat 75.9 40.0-70.0 Justin (calc)) [place] 922233-02-21 12:50:00 Test Item Value Reference Range Interpretation Comments Temp Justin (test code = Temp Justin) 37.0 [place] 963423-02-21 12:50:00 Test Item Value Reference Range Interpretation Comments ACT (TEG) Rapid (test code = ACT (TEG) 113 s 86-118 Rapid) [place] 963423-02-21 12:50:00 Test Item Value Reference Range Interpretation Comments Split Point Rapid (test code = Split 0.6 min Point Rapid) [place] 963423-02-21 12:50:00 Test Item Value Reference Range Interpretation Comments R-time Rapid (test code = R-time 0.7 min 0.4-0.7 Rapid) [place] 963423-02-21 12:50:00 Test Item Value Reference Range Interpretation Comments K-time Rapid (test code = K-time 1.1 min 0.6-2.3 Rapid) [place] 963423-02-21 12:50:00 Test Item Value Reference Range Interpretation Comments Angle Rapid (test code = Angle 78 degrees 64-80 Rapid) [place] 963423-02-21 12:50:00 Test Item Value Reference Range Interpretation Comments Max Amplitude Rapid (test code = Max 65 mm 52-71 Amplitude Rapid) [place] 963423-02-21 12:50:00 Test Item Value Reference Range Interpretation Comments G-value Rapid (test code = G-value 9.2 5.0-11.6 Rapid) [place] 963423-02-21 12:50:00 Test Item Value Reference Range Interpretation Comments Estimated % Lysis Rapid 0.0 See_Comment [Au tomated message] The (test code = Estimated syste m which generated % Lysis Rapid) this result t ransmitted reference range : <=7.5. The reference r christiano was not used to int erpret this result as normal/abnormal . [facility] UwtfuifZDLLQXRHIF8908-28-34 12:50:00 Test Item Value Reference Range Interpretation Comments Plt Morph (test code = See Note 1(11/21/22 Plt Morph) 6:50 AM) [facility]valeKbkqwwjLKQEHOGMUN7464-91-19 12:50:00 Test Item Value Reference Range Interpretation Comments Stomatocyte (test code = Stomatocyte) slight [facility] W-21 [id number] 12:50:00 Test Item Value Reference Range Interpretation Comments ABO/Rh (test code = ABO/Rh) O POS [facility] SelpheeNativeflow [facility] [id number] 12:50:00 Test Item Value Reference Range Interpretation Comments Antibody Scrn (test Negative (11/21/22 6:50 code = Antibody Scrn) AM) [facility] CampusRazume [id number] 12:50:00 Test Item Value Reference Range Interpretation Comments ABO/Rh (test code = ABO/Rh) O POS [facility] W-21 [id number] 12:50:00 Test Item Value Reference Range Interpretation Comments Antibody Scrn (test Negative (11/21/22 6:50 code = Antibody Scrn) AM) [facility]aleViva VisionCARDIAC [id number] 12:50:00 Test Item Value Reference Range Interpretation Comments HS Troponin I (test code = HS Troponin 15 I) [facility] [employer] [id number] 12:50:00 Test Item Value Reference Range Interpretation Comments Glucose Lvl (test code = Glucose Lvl) 99 70-99 [facility] [employer] [id number] 12:50:00 Test Item Value Reference Range Interpretation Comments BUN (test code = BUN) 38 7-22 [facility] barcoo2023-02-21 12:50:00 Test Item Value Reference Range Interpretation Comments Creatinine Lvl (test code = Creatinine 2.38 0.50-1.40 Lvl) [facility] [employer] [id number] 12:50:00 Test Item Value Reference Range Interpretation Comments Sodium Lvl (test code = Sodium Lvl) 140 135-145 [facility] barcoo2023-02-21 12:50:00 Test Item Value Reference Range Interpretation Comments Potassium Lvl (test code = Potassium 3.9 3.5-5.1 Lvl) [place] 457353-02-21 12:50:00 Test Item Value Reference Range Interpretation Comments Chloride Lvl (test code = Chloride Lvl) 107 95-109 [place] 457353-02-21 12:50:00 Test Item Value Reference Range Interpretation Comments CO2 (test code = CO2) 27 24-32 [place] 457353-02-21 12:50:00 Test Item Value Reference Range Interpretation Comments Calcium Lvl (test code = Calcium Lvl) 8.1 8.5-10.5 [place] 457353-02-21 12:50:00 Test Item Value Reference Range Interpretation Comments AGAP (test code = AGAP) 9.9 10.0-20.0 [place] 457353-02-21 12:50:00 Test Item Value Reference Range Interpretation Comments eGFR (test code = eGFR) 20 [place] 457353-02-21 12:50:00 Test Item Value Reference Range Interpretation Comments Lactic Acid Lvl (test code = Lactic 0.7 0.5-2.2 Acid Lvl) [place] 457353-02-21 12:50:00 Test Item Value Reference Range Interpretation Comments Total Protein (test code = Total 6.1 6.4-8.4 Protein) [place] 457353-02-21 12:50:00 Test Item Value Reference Range Interpretation Comments Albumin Lvl (test code = Albumin Lvl) 2.9 3.5-5.0 [place] [address]-02-21 12:50:00 Test Item Value Reference Range Interpretation Comments Globulin (test code = Globulin) 3.2 2.7-4.2 [place] 457353-02-21 12:50:00 Test Item Value Reference Range Interpretation Comments A/G Ratio (test code = A/G Ratio) 0.9 1 0.7-1.6 [place] [address]-02-21 12:50:00 Test Item Value Reference Range Interpretation Comments ALT (test code = ALT) 16 See_Comment [Auto mated message] The system which ge nerated this result transmit sheba reference range : <=65. The reference range was not used to interpr et this result as edy l/abnormal. [place] 457353-02-21 12:50:00 Test Item Value Reference Range Interpretation Comments AST (test code = AST) 15 See_Comment [Auto mated message] The system which ge nerated this result transmit sheba reference range : <=37. The reference range was not used to interpr et this result as edy l/abnormal. [facility]valeGimmie [id number] 12:50:00 Test Item Value Reference Range Interpretation Comments Alk Phos (test code = Alk Phos) 96 39-136 [facility] [id number] 12:50:00 Test Item Value Reference Range Interpretation Comments Bili Total (test code = Bili Total) 0.2 0.2-1.3 [facility] [id number] 12:50:00 Test Item Value Reference Range Interpretation Comments Bili Direct (test code no gt See_Comment [Aut omated message] The = Bili Direct) system which generated this result tra nsmitted reference range : <=0.3. The reference r christiano was not used to int erpret this result as edy l/abnormal. [facility] [id number] 12:50:00 Test Item Value Reference Range Interpretation Comments Bili Indirect Unable to See_Comment [Automated (test code = Bili Calculate message] T he system Indirect) which generated this result transmitted reference range : <=1.0. The reference range was not used to interpret this result as normal/abnormal . [facility] CenterDjmxwhaADTVJNSBU1036-02-71 12:50:00 Test Item Value Reference Range Interpretation Comments Ethanol Lvl (test code = Ethanol Lvl) no gt [facility] CenterAmhwqabDLEJLHGWO2252-74-92 12:50:00 Test Item Value Reference Range Interpretation Comments Etoh (%) (test code = Etoh (%)) no gt [facility] CenterMcutwzwOEFXLHRVU8694-94-77 12:50:00 Test Item Value Reference Range Interpretation Comments Lactic Acid Lvl (test code = Lactic 0.7 0.5-2.2 Acid Lvl) [place] 922233-02-21 12:50:00 Test Item Value Reference Range Interpretation Comments Total Protein (test code = Total 6.1 6.4-8.4 Protein) [place] 922233-02-21 12:50:00 Test Item Value Reference Range Interpretation Comments Albumin Lvl (test code = Albumin Lvl) 2.9 3.5-5.0 [facility]aleVeqyytmUHMPDIWGT4227-72-94 12:50:00 Test Item Value Reference Range Interpretation Comments Globulin (test code = Globulin) 3.2 2.7-4.2 [facility]aleCwbraulKWKERHVNS7796-37-52 12:50:00 Test Item Value Reference Range Interpretation Comments A/G Ratio (test code = A/G Ratio) 0.9 1 0.7-1.6 [facility]valeAczrtpcPAERVLLBJ3133-16-59 12:50:00 Test Item Value Reference Range Interpretation Comments ALT (test code = ALT) 16 See_Comment [Auto mated message] The system which ge nerated this result transmit sheba reference range : <=65. The reference range was not used to interpr et this result as edy l/abnormal. [facility]alePlnwyolBZLIVLLLE7111-51-03 12:50:00 Test Item Value Reference Range Interpretation Comments AST (test code = AST) 15 See_Comment [Auto mated message] The system which ge nerated this result transmit sheba reference range : <=37. The reference range was not used to interpr et this result as edy l/abnormal. [facility]aleFfjkdcnEWIXKBIJR1512-52-55 12:50:00 Test Item Value Reference Range Interpretation Comments Alk Phos (test code = Alk Phos) 96 39-136 [facility]aleDsbozlpPEULZIQFP8168-16-73 12:50:00 Test Item Value Reference Range Interpretation Comments Bili Total (test code = Bili Total) 0.2 0.2-1.3 [facility]aleGbwmetwJQUHERJGJ7333-01-69 12:50:00 Test Item Value Reference Range Interpretation Comments Bili Direct (test code no gt See_Comment [Aut omated message] The = Bili Direct) system which generated this result tra nsmitted reference range : <=0.3. The reference r christiano was not used to int erpret this result as edy l/abnormal. [facility]valeJqinduqBOKDOEERW6610-21-34 12:50:00 Test Item Value Reference Range Interpretation Comments Bili Indirect Unable to See_Comment [Automated (test code = Bili Calculate message] T he system Indirect) which generated this result transmitted reference range : <=1.0. The reference range was not used to interpret this result as normal/abnormal . [facility]aleIrdtlwdIYEOGNZXE4487-01-50 12:50:00 Test Item Value Reference Range Interpretation Comments HS Troponin I (test code = HS Troponin 15 I) [facility] TexasBnqvpxnKBQLVSIWQ0419-63-35 12:50:00 Test Item Value Reference Range Interpretation Comments pH Justin (test code = pH Justin) 7.35 1 7.28-7.42 [place] [address]-02-21 12:50:00 Test Item Value Reference Range Interpretation Comments pCO2 Justin (test code = pCO2 Justin) 55 38-52 [place] 922233-02-21 12:50:00 Test Item Value Reference Range Interpretation Comments pO2 Justin (test code = pO2 Justin) 43 20-49 [place] 922233-02-21 12:50:00 Test Item Value Reference Range Interpretation Comments HCO3 Justin (test code = HCO3 Justin) 30 22-26 [place] [address]-02-21 12:50:00 Test Item Value Reference Range Interpretation Comments BE Justin (test code = BE Justin) 3 -2-2 [place] 922233-02-21 12:50:00 Test Item Value Reference Range Interpretation Comments O2 Sat Justin (calc) (test code = O2 Sat 75.9 40.0-70.0 Justin (calc)) [facility] TexasOdibethAWEJEHVYQ9865-73-49 12:50:00 Test Item Value Reference Range Interpretation Comments Temp Justin (test code = Temp Justin) 37.0 [place] 963423-02-21 12:50:00 Test Item Value Reference Range Interpretation Comments ACT (TEG) Rapid (test code = ACT (TEG) 113 s 86-118 Rapid) [place] 963423-02-21 12:50:00 Test Item Value Reference Range Interpretation Comments Split Point Rapid (test code = Split 0.6 min Point Rapid) [place] 963423-02-21 12:50:00 Test Item Value Reference Range Interpretation Comments R-time Rapid (test code = R-time 0.7 min 0.4-0.7 Rapid) [place] 963423-02-21 12:50:00 Test Item Value Reference Range Interpretation Comments K-time Rapid (test code = K-time 1.1 min 0.6-2.3 Rapid) [place] 963423-02-21 12:50:00 Test Item Value Reference Range Interpretation Comments Angle Rapid (test code = Angle 78 degrees 64-80 Rapid) [place] 963423-02-21 12:50:00 Test Item Value Reference Range Interpretation Comments Max Amplitude Rapid (test code = Max 65 mm 52-71 Amplitude Rapid) [place] 963423-02-21 12:50:00 Test Item Value Reference Range Interpretation Comments G-value Rapid (test code = G-value 9.2 5.0-11.6 Rapid) [place] 963423-02-21 12:50:00 Test Item Value Reference Range Interpretation Comments Estimated % Lysis Rapid 0.0 See_Comment [Au tomated message] The (test code = Estimated syste m which generated % Lysis Rapid) this result t ransmitted reference range : <=7.5. The reference r christiano was not used to int erpret this result as normal/abnormal . [place] 963423-02-21 12:50:00 Test Item Value Reference Range Interpretation Comments Plt Morph (test code = See Note 1(11/21/22 Plt Morph) 6:50 AM) [place] 963423-02-21 12:50:00 Test Item Value Reference Range Interpretation Comments Stomatocyte (test code = Stomatocyte) slight [place] 963423-02-21 12:50:00 Test Item Value Reference Range Interpretation Comments WBC X 10x3 (test code = WBC X 10x3) 8.7 3.7-10.4 [place] [address]-02-21 12:50:00 Test Item Value Reference Range Interpretation Comments RBC X 10x6 (test code = RBC X 10x6) 3.56 4.20-5.40 [place] [address]-02-21 12:50:00 Test Item Value Reference Range Interpretation Comments Hgb (test code = Hgb) 10.4 12.0-16.0 [place] [address]-02-21 12:50:00 Test Item Value Reference Range Interpretation Comments Hct (test code = Hct) 32.3 36.0-48.0 [place] [address]-02-21 12:50:00 Test Item Value Reference Range Interpretation Comments MCV (test code = MCV) 90.8 80.0-98.0 [place] [address]-02-21 12:50:00 Test Item Value Reference Range Interpretation Comments MCH (test code = MCH) 29.3 pg 27.0-31.0 [place] 963423-02-21 12:50:00 Test Item Value Reference Range Interpretation Comments MCHC (test code = MCHC) 32.2 32.0-36.0 [place] 963423-02-21 12:50:00 Test Item Value Reference Range Interpretation Comments RDW (test code = RDW) 13.7 11.5-14.5 [place] 963423-02-21 12:50:00 Test Item Value Reference Range Interpretation Comments Platelet (test code = Platelet) 137 133-450 [place] 963423-02-21 12:50:00 Test Item Value Reference Range Interpretation Comments MPV (test code = MPV) 7.9 7.4-10.4 [place] [address]-02-21 12:50:00 Test Item Value Reference Range Interpretation Comments ACT (TEG) Rapid (test code = ACT (TEG) 113 s 86-118 Rapid) [place] 963423-02-21 12:50:00 Test Item Value Reference Range Interpretation Comments Split Point Rapid (test code = Split 0.6 min Point Rapid) [place] 963423-02-21 12:50:00 Test Item Value Reference Range Interpretation Comments R-time Rapid (test code = R-time 0.7 min 0.4-0.7 Rapid) [place] [address]-02-21 12:50:00 Test Item Value Reference Range Interpretation Comments K-time Rapid (test code = K-time 1.1 min 0.6-2.3 Rapid) [place] [address]-02-21 12:50:00 Test Item Value Reference Range Interpretation Comments Angle Rapid (test code = Angle 78 degrees 64-80 Rapid) [place] [address]-02-21 12:50:00 Test Item Value Reference Range Interpretation Comments Max Amplitude Rapid (test code = Max 65 mm 52-71 Amplitude Rapid) [place] [address]-02-21 12:50:00 Test Item Value Reference Range Interpretation Comments G-value Rapid (test code = G-value 9.2 5.0-11.6 Rapid) [place] 963423-02-21 12:50:00 Test Item Value Reference Range Interpretation Comments Estimated % Lysis Rapid 0.0 See_Comment [Au tomated message] The (test code = Estimated syste m which generated % Lysis Rapid) this result t ransmitted reference range : <=7.5. The reference r christiano was not used to int erpret this result as normal/abnormal . [facility]ld[facility]GGCXGHIQJI9618[facility]17-[facility] 12:50:00 Test Item Value Reference Range Interpretation Comments Plt Morph (test code = See Note 1(11/21/22 Plt Morph) 6:50 AM) [place] 963423-02-21 12:50:00 Test Item Value Reference Range Interpretation Comments Segs (test code = Segs) 64.1 45.0-75.0 [place] 963423-02-21 12:50:00 Test Item Value Reference Range Interpretation Comments Lymphocytes (test code = Lymphocytes) 22.0 20.0-40.0 [place] 963423-02-21 12:50:00 Test Item Value Reference Range Interpretation Comments Monocytes (test code = Monocytes) 8.3 2.0-12.0 [place] 963423-02-21 12:50:00 Test Item Value Reference Range Interpretation Comments Eosinophils (test code = 4.7 See_Comment [A utomated message] The Eosinophils) system which ge nerated this result tra nsmitted reference range : <=4.0. The reference r christiano was not used to int erpret this result as normal/abnormal . [facility] HospitalHlglyvaHGADZVSTTO4790-32-70 12:50:00 Test Item Value Reference Range Interpretation Comments Basophils (test code = 0.9 See_Comment [Aut omated message] The Basophils) system which ge nerated this result tra nsmitted reference range : <=1.0. The reference r christiano was not used to int erpret this result as normal/abnormal . [facility] HospitalSaugsjmQDCRNDEVBT5886-84-14 12:50:00 Test Item Value Reference Range Interpretation Comments Neutrophils # (test code = Neutrophils 5.6 1.5-8.1 #) [facility] HospitalTrsrkfpVRTBROFBEQ9203-16-61 12:50:00 Test Item Value Reference Range Interpretation Comments Lymphocytes # (test code = Lymphocytes 1.9 1.0-5.5 #) [place] 963423-02-21 12:50:00 Test Item Value Reference Range Interpretation Comments Monocytes # (test code 0.7 See_Comment [Aut omated message] The = Monocytes #) system which generated this result tra nsmitted reference range : <=0.8. The reference r christiano was not used to int erpret this result as normal/abnormal . [facility] XohasidOTZUIPPAJA9997-22-27 12:50:00 Test Item Value Reference Range Interpretation Comments Eosinophils # (test code 0.4 See_Comment [A utomated message] The = Eosinophils #) system whic h generated this result tra nsmitted reference range : <=0.5. The reference r christiano was not used to int erpret this result as normal/abnormal . [facility] ArqdcjtTUGQJFFDFM4751-57-48 12:50:00 Test Item Value Reference Range Interpretation Comments Basophils # (test code 0.1 See_Comment [Aut omated message] The = Basophils #) system which generated this result tra nsmitted reference range : <=0.2. The reference r christiano was not used to int erpret this result as normal/abnormal . [facility] PreaofnZBPBYAGKPX5296-64-35 12:50:00 Test Item Value Reference Range Interpretation Comments Stomatocyte (test code = Stomatocyte) slight [facility] QpnoyufNBBCITDTUL9853-27-59 12:50:00 Test Item Value Reference Range Interpretation Comments Ethanol Lvl (test code = Ethanol Lvl) no gt [facility] HtvfuhqTJNPZSOXIJ8140-30-89 12:50:00 Test Item Value Reference Range Interpretation Comments Etoh (%) (test code = Etoh (%)) no gt [facility] W-21 [id number] 12:50:00 Test Item Value Reference Range Interpretation Comments ABO/Rh (test code = ABO/Rh) O POS [place] [employer] TDHBTZP4854-65-80 12:50:00 Test Item Value Reference Range Interpretation Comments Antibody Scrn (test Negative (11/21/22 6:50 code = Antibody Scrn) AM) [facility] W-21 IXHVBVL0632-04-45 12:50:00 Test Item Value Reference Range Interpretation Comments ABO/Rh (test code = ABO/Rh) O POS [place] [employer] FBYYYWZ4178-89-30 12:50:00 Test Item Value Reference Range Interpretation Comments Antibody Scrn (test Negative (11/21/22 6:50 code = Antibody Scrn) AM) [facility] CenterCARDIAC TWGXJVX9768-47-99 12:50:00 Test Item Value Reference Range Interpretation Comments HS Troponin I (test code = HS Troponin 15 I) [facility]2023-02-21 12:50:00 Test Item Value Reference Range Interpretation Comments Glucose Lvl (test code = Glucose Lvl) 99 70-99 [place] 457353-02-21 12:50:00 Test Item Value Reference Range Interpretation Comments BUN (test code = BUN) 38 7-22 [place] 457353-02-21 12:50:00 Test Item Value Reference Range Interpretation Comments Creatinine Lvl (test code = Creatinine 2.38 0.50-1.40 Lvl) [facility]2023-02-21 12:50:00 Test Item Value Reference Range Interpretation Comments Sodium Lvl (test code = Sodium Lvl) 140 135-145 [place] 457353-02-21 12:50:00 Test Item Value Reference Range Interpretation Comments Potassium Lvl (test code = Potassium 3.9 3.5-5.1 Lvl) [facility]2023-02-21 12:50:00 Test Item Value Reference Range Interpretation Comments Chloride Lvl (test code = Chloride Lvl) 107 95-109 [facility]2023-02-21 12:50:00 Test Item Value Reference Range Interpretation Comments CO2 (test code = CO2) 27 24-32 [facility]2023-02-21 12:50:00 Test Item Value Reference Range Interpretation Comments Calcium Lvl (test code = Calcium Lvl) 8.1 8.5-10.5 [facility]2023-02-21 12:50:00 Test Item Value Reference Range Interpretation Comments AGAP (test code = AGAP) 9.9 10.0-20.0 [place] 457353-02-21 12:50:00 Test Item Value Reference Range Interpretation Comments eGFR (test code = eGFR) 20 [place] 457353-02-21 12:50:00 Test Item Value Reference Range Interpretation Comments Lactic Acid Lvl (test code = Lactic 0.7 0.5-2.2 Acid Lvl) [facility]2023-02-21 12:50:00 Test Item Value Reference Range Interpretation Comments Total Protein (test code = Total 6.1 6.4-8.4 Protein) [place] [address]-02-21 12:50:00 Test Item Value Reference Range Interpretation Comments Albumin Lvl (test code = Albumin Lvl) 2.9 3.5-5.0 [place] [address]-02-21 12:50:00 Test Item Value Reference Range Interpretation Comments Globulin (test code = Globulin) 3.2 2.7-4.2 [place] [address]-02-21 12:50:00 Test Item Value Reference Range Interpretation Comments A/G Ratio (test code = A/G Ratio) 0.9 1 0.7-1.6 [place] [address]-02-21 12:50:00 Test Item Value Reference Range Interpretation Comments ALT (test code = ALT) 16 See_Comment [Auto mated message] The system which ge nerated this result transmit sheba reference range : <=65. The reference range was not used to interpr et this result as edy l/abnormal. [place] [address]-02-21 12:50:00 Test Item Value Reference Range Interpretation Comments AST (test code = AST) 15 See_Comment [Auto mated message] The system which ge nerated this result transmit sheba reference range : <=37. The reference range was not used to interpr et this result as edy l/abnormal. [place] [address]-02-21 12:50:00 Test Item Value Reference Range Interpretation Comments Alk Phos (test code = Alk Phos) 96 39-136 [place] [address]-02-21 12:50:00 Test Item Value Reference Range Interpretation Comments Bili Total (test code = Bili Total) 0.2 0.2-1.3 [place] [address]-02-21 12:50:00 Test Item Value Reference Range Interpretation Comments Bili Direct (test code no gt See_Comment [Aut omated message] The = Bili Direct) system which generated this result tra nsmitted reference range : <=0.3. The reference r christiano was not used to int erpret this result as edy l/abnormal. [facility] CenterSAMHI Hotels VXMQQ5672-88-73 12:50:00 Test Item Value Reference Range Interpretation Comments Bili Indirect Unable to See_Comment [Automated (test code = Bili Calculate message] T he system Indirect) which generated this result transmitted reference range : <=1.0. The reference range was not used to interpret this result as normal/abnormal . [facility] TexasSouyeldCTSDMKECM9539-52-80 12:50:00 Test Item Value Reference Range Interpretation Comments Ethanol Lvl (test code = Ethanol Lvl) no gt [facility] TexasUtokqsbKZFERFGOM0940-03-56 12:50:00 Test Item Value Reference Range Interpretation Comments Etoh (%) (test code = Etoh (%)) no gt [facility] TexasMefpkvrDKZXIBTXJ8830-16-65 12:50:00 Test Item Value Reference Range Interpretation Comments Lactic Acid Lvl (test code = Lactic 0.7 0.5-2.2 Acid Lvl) [facility] TexasIvrklkmKIBFBNTLB3970-07-92 12:50:00 Test Item Value Reference Range Interpretation Comments Total Protein (test code = Total 6.1 6.4-8.4 Protein) [facility] TexasJcswbjhBQXDLBYBS9567-86-44 12:50:00 Test Item Value Reference Range Interpretation Comments Albumin Lvl (test code = Albumin Lvl) 2.9 3.5-5.0 [facility] TexasLpuaynqIQCWBBABI2144-28-69 12:50:00 Test Item Value Reference Range Interpretation Comments Globulin (test code = Globulin) 3.2 2.7-4.2 [facility] TexasTctihijLLSSHHBSV0937-45-07 12:50:00 Test Item Value Reference Range Interpretation Comments A/G Ratio (test code = A/G Ratio) 0.9 1 0.7-1.6 [place] 922233-02-21 12:50:00 Test Item Value Reference Range Interpretation Comments ALT (test code = ALT) 16 See_Comment [Auto mated message] The system which ge nerated this result transmit sheba reference range : <=65. The reference range was not used to interpr et this result as edy l/abnormal. [facility] TexasGvehlfeQQJOJBQXR5260-28-57 12:50:00 Test Item Value Reference Range Interpretation Comments AST (test code = AST) 15 See_Comment [Auto mated message] The system which ge nerated this result transmit sheba reference range : <=37. The reference range was not used to interpr et this result as edy l/abnormal. [facility]aleEqcvjlzGFGNAXZOJ0389-71-21 12:50:00 Test Item Value Reference Range Interpretation Comments Alk Phos (test code = Alk Phos) 96 39-136 [facility] TexasEnbzxxfGEYXVYYKE5015-64-31 12:50:00 Test Item Value Reference Range Interpretation Comments Bili Total (test code = Bili Total) 0.2 0.2-1.3 [facility] TexasGsaatoeYUJPONEXW5040-99-47 12:50:00 Test Item Value Reference Range Interpretation Comments Bili Direct (test code no gt See_Comment [Aut omated message] The = Bili Direct) system which generated this result tra nsmitted reference range : <=0.3. The reference r christiano was not used to int erpret this result as edy l/abnormal. [facility] TexasAvpinbsJCWXEXYEJ9031-84-89 12:50:00 Test Item Value Reference Range Interpretation Comments Bili Indirect Unable to See_Comment [Automated (test code = Bili Calculate message] T he system Indirect) which generated this result transmitted reference range : <=1.0. The reference range was not used to interpret this result as normal/abnormal . [facility] TexasGtsoohdJBLGFCBUZ1448-22-57 12:50:00 Test Item Value Reference Range Interpretation Comments HS Troponin I (test code = HS Troponin 15 I) [facility] TexasCrumnlzYGLZJQRIU7973-57-82 12:50:00 Test Item Value Reference Range Interpretation Comments pH Justin (test code = pH Justin) 7.35 1 7.28-7.42 [facility] TexasZsxvsqjLDZNAVNQG3631-00-90 12:50:00 Test Item Value Reference Range Interpretation Comments pCO2 Justin (test code = pCO2 Justin) 55 38-52 [facility] TexasBbhxqcmCDJMYFEMQ8874-04-69 12:50:00 Test Item Value Reference Range Interpretation Comments pO2 Justin (test code = pO2 Justin) 43 20-49 [facility] TexasKhddimgDQWKUGOEQ6064-71-45 12:50:00 Test Item Value Reference Range Interpretation Comments HCO3 Justin (test code = HCO3 Justin) 30 22-26 [facility] TexasRfxjwzuNMNBHMHHO1267-96-19 12:50:00 Test Item Value Reference Range Interpretation Comments BE Justin (test code = BE Justin) 3 -2-2 [facility] TexasAgmxvnlIRNSNNVZU1511-54-17 12:50:00 Test Item Value Reference Range Interpretation Comments O2 Sat Justin (calc) (test code = O2 Sat 75.9 40.0-70.0 Justin (calc)) [facility] TexasXuaceuyWGYBQGFRY7612-54-23 12:50:00 Test Item Value Reference Range Interpretation Comments Temp Justin (test code = Temp Justin) 37.0 [place] 963423-02-21 12:50:00 Test Item Value Reference Range Interpretation Comments ACT (TEG) Rapid (test code = ACT (TEG) 113 s 86-118 Rapid) [place] 963423-02-21 12:50:00 Test Item Value Reference Range Interpretation Comments Split Point Rapid (test code = Split 0.6 min Point Rapid) [place] 963423-02-21 12:50:00 Test Item Value Reference Range Interpretation Comments R-time Rapid (test code = R-time 0.7 min 0.4-0.7 Rapid) [place] 963423-02-21 12:50:00 Test Item Value Reference Range Interpretation Comments K-time Rapid (test code = K-time 1.1 min 0.6-2.3 Rapid) [place] 963423-02-21 12:50:00 Test Item Value Reference Range Interpretation Comments Angle Rapid (test code = Angle 78 degrees 64-80 Rapid) [facility]VcnzbznBUFQXLKBRT2061-13-35 12:50:00 Test Item Value Reference Range Interpretation Comments Max Amplitude Rapid (test code = Max 65 mm 52-71 Amplitude Rapid) [place] 963423-02-21 12:50:00 Test Item Value Reference Range Interpretation Comments G-value Rapid (test code = G-value 9.2 5.0-11.6 Rapid) [place] 963423-02-21 12:50:00 Test Item Value Reference Range Interpretation Comments Estimated % Lysis Rapid 0.0 See_Comment [Au tomated message] The (test code = Estimated syste m which generated % Lysis Rapid) this result t ransmitted reference range : <=7.5. The reference r christiano was not used to int erpret this result as normal/abnormal . [facility] HospitalYehsidlPPSBPKYFIY0768-86-82 12:50:00 Test Item Value Reference Range Interpretation Comments Plt Morph (test code = See Note 1(11/21/22 Plt Morph) 6:50 AM) [place] 963423-02-21 12:50:00 Test Item Value Reference Range Interpretation Comments Stomatocyte (test code = Stomatocyte) slight [place] [address]-02-21 12:50:00 Test Item Value Reference Range Interpretation Comments WBC X 10x3 (test code = WBC X 10x3) 8.7 3.7-10.4 [place] [address]-02-21 12:50:00 Test Item Value Reference Range Interpretation Comments RBC X 10x6 (test code = RBC X 10x6) 3.56 4.20-5.40 [place] [address]-02-21 12:50:00 Test Item Value Reference Range Interpretation Comments Hgb (test code = Hgb) 10.4 12.0-16.0 [place] [address]-02-21 12:50:00 Test Item Value Reference Range Interpretation Comments Hct (test code = Hct) 32.3 36.0-48.0 [place] [address]-02-21 12:50:00 Test Item Value Reference Range Interpretation Comments MCV (test code = MCV) 90.8 80.0-98.0 [place] [address]-02-21 12:50:00 Test Item Value Reference Range Interpretation Comments MCH (test code = MCH) 29.3 pg 27.0-31.0 [place] [address]-02-21 12:50:00 Test Item Value Reference Range Interpretation Comments MCHC (test code = MCHC) 32.2 32.0-36.0 [place] [address]-02-21 12:50:00 Test Item Value Reference Range Interpretation Comments RDW (test code = RDW) 13.7 11.5-14.5 [place] [address]-02-21 12:50:00 Test Item Value Reference Range Interpretation Comments Platelet (test code = Platelet) 137 133-450 [place] [address]-02-21 12:50:00 Test Item Value Reference Range Interpretation Comments MPV (test code = MPV) 7.9 7.4-10.4 [place] [address]-02-21 12:50:00 Test Item Value Reference Range Interpretation Comments ACT (TEG) Rapid (test code = ACT (TEG) 113 s 86-118 Rapid) [place] 963423-02-21 12:50:00 Test Item Value Reference Range Interpretation Comments Split Point Rapid (test code = Split 0.6 min Point Rapid) [place] [address]-02-21 12:50:00 Test Item Value Reference Range Interpretation Comments R-time Rapid (test code = R-time 0.7 min 0.4-0.7 Rapid) [place] 963423-02-21 12:50:00 Test Item Value Reference Range Interpretation Comments K-time Rapid (test code = K-time 1.1 min 0.6-2.3 Rapid) [place] [address]-02-21 12:50:00 Test Item Value Reference Range Interpretation Comments Angle Rapid (test code = Angle 78 degrees 64-80 Rapid) [place] [address]-02-21 12:50:00 Test Item Value Reference Range Interpretation Comments Max Amplitude Rapid (test code = Max 65 mm 52-71 Amplitude Rapid) [place] [address]-02-21 12:50:00 Test Item Value Reference Range Interpretation Comments G-value Rapid (test code = G-value 9.2 5.0-11.6 Rapid) [place] [address]-02-21 12:50:00 Test Item Value Reference Range Interpretation Comments Estimated % Lysis Rapid 0.0 See_Comment [Au tomated message] The (test code = Estimated syste m which generated % Lysis Rapid) this result t ransmitted reference range : <=7.5. The reference r christiano was not used to int erpret this result as normal/abnormal . [place] 963423-02-21 12:50:00 Test Item Value Reference Range Interpretation Comments Plt Morph (test code = See Note 1(11/21/22 Plt Morph) 6:50 AM) [place] [address]-02-21 12:50:00 Test Item Value Reference Range Interpretation Comments Segs (test code = Segs) 64.1 45.0-75.0 [place] [address]-02-21 12:50:00 Test Item Value Reference Range Interpretation Comments Lymphocytes (test code = Lymphocytes) 22.0 20.0-40.0 [place] [address]-02-21 12:50:00 Test Item Value Reference Range Interpretation Comments Monocytes (test code = Monocytes) 8.3 2.0-12.0 [place] [address]-02-21 12:50:00 Test Item Value Reference Range Interpretation Comments Eosinophils (test code = 4.7 See_Comment [A utomated message] The Eosinophils) system which ge nerated this result tra nsmitted reference range : <=4.0. The reference r christiano was not used to int erpret this result as normal/abnormal . [place] 963423-02-21 12:50:00 Test Item Value Reference Range Interpretation Comments Basophils (test code = 0.9 See_Comment [Aut omated message] The Basophils) system which ge nerated this result tra nsmitted reference range : <=1.0. The reference r christiano was not used to int erpret this result as normal/abnormal . [place] 963423-02-21 12:50:00 Test Item Value Reference Range Interpretation Comments Neutrophils # (test code = Neutrophils 5.6 1.5-8.1 #) [place] 963423-02-21 12:50:00 Test Item Value Reference Range Interpretation Comments Lymphocytes # (test code = Lymphocytes 1.9 1.0-5.5 #) [place] 963423-02-21 12:50:00 Test Item Value Reference Range Interpretation Comments Monocytes # (test code 0.7 See_Comment [Aut omated message] The = Monocytes #) system which generated this result tra nsmitted reference range : <=0.8. The reference r christiano was not used to int erpret this result as normal/abnormal . [place] 963423-02-21 12:50:00 Test Item Value Reference Range Interpretation Comments Eosinophils # (test code 0.4 See_Comment [A utomated message] The = Eosinophils #) system [facility] h generated this result tra nsmitted reference range : <=0.5. The reference r christiano was not used to int erpret this result as normal/abnormal . [place] 963423-02-21 12:50:00 Test Item Value Reference Range Interpretation Comments Basophils # (test code 0.1 See_Comment [Aut omated message] The = Basophils #) system which generated this result tra nsmitted reference range : <=0.2. The reference r christiano was not used to int erpret this result as normal/abnormal . [place] 963423-02-21 12:50:00 Test Item Value Reference Range Interpretation Comments Stomatocyte (test code = Stomatocyte) slight [facility]aleTcmankrLISOAJQDYY3448-29-00 12:50:00 Test Item Value Reference Range Interpretation Comments Ethanol Lvl (test code = Ethanol Lvl) no gt [facility] JabxvaeYPRGZWUGSB7118-37-92 12:50:00 Test Item Value Reference Range Interpretation Comments Etoh (%) (test code = Etoh (%)) no gt [facility] W-21 [id number] 12:50:00 Test Item Value Reference Range Interpretation Comments ABO/Rh (test code = ABO/Rh) O POS [facility] W-21 [id number] 12:50:00 Test Item Value Reference Range Interpretation Comments Antibody Scrn (test Negative (11/21/22 6:50 code = Antibody Scrn) AM) [facility] W-21 [id number] 12:50:00 Test Item Value Reference Range Interpretation Comments ABO/Rh (test code = ABO/Rh) O POS [facility] W-21 [id number] 12:50:00 Test Item Value Reference Range Interpretation Comments Antibody Scrn (test Negative (11/21/22 6:50 code = Antibody Scrn) AM) [facility] [employer]ARD[employer] [id number] 12:50:00 Test Item Value Reference Range Interpretation Comments HS Troponin I (test code = HS Troponin 15 I) [facility] [employer] [id number] 12:50:00 Test Item Value Reference Range Interpretation Comments Glucose Lvl (test code = Glucose Lvl) 99 70-99 [facility] barcoo2023-02-21 12:50:00 Test Item Value Reference Range Interpretation Comments BUN (test code = BUN) 38 7-22 [facility] barcoo2023-02-21 12:50:00 Test Item Value Reference Range Interpretation Comments Creatinine Lvl (test code = Creatinine 2.38 0.50-1.40 Lvl) [facility] barcoo2023-02-21 12:50:00 Test Item Value Reference Range Interpretation Comments Sodium Lvl (test code = Sodium Lvl) 140 135-145 [facility] barcoo2023-02-21 12:50:00 Test Item Value Reference Range Interpretation Comments Potassium Lvl (test code = Potassium 3.9 3.5-5.1 Lvl) [place] 457353-02-21 12:50:00 Test Item Value Reference Range Interpretation Comments Chloride Lvl (test code = Chloride Lvl) 107 95-109 [place] 457353-02-21 12:50:00 Test Item Value Reference Range Interpretation Comments CO2 (test code = CO2) 27 24-32 [place] [address]-02-21 12:50:00 Test Item Value Reference Range Interpretation Comments Calcium Lvl (test code = Calcium Lvl) 8.1 8.5-10.5 [place] 457353-02-21 12:50:00 Test Item Value Reference Range Interpretation Comments AGAP (test code = AGAP) 9.9 10.0-20.0 [place] 457353-02-21 12:50:00 Test Item Value Reference Range Interpretation Comments eGFR (test code = eGFR) 20 [place] 457353-02-21 12:50:00 Test Item Value Reference Range Interpretation Comments Lactic Acid Lvl (test code = Lactic 0.7 0.5-2.2 Acid Lvl) [place] 457353-02-21 12:50:00 Test Item Value Reference Range Interpretation Comments Total Protein (test code = Total 6.1 6.4-8.4 Protein) [place] 457353-02-21 12:50:00 Test Item Value Reference Range Interpretation Comments Albumin Lvl (test code = Albumin Lvl) 2.9 3.5-5.0 [place] 457353-02-21 12:50:00 Test Item Value Reference Range Interpretation Comments Globulin (test code = Globulin) 3.2 2.7-4.2 [place] [address]-02-21 12:50:00 Test Item Value Reference Range Interpretation Comments A/G Ratio (test code = A/G Ratio) 0.9 1 0.7-1.6 [place] [address]-02-21 12:50:00 Test Item Value Reference Range Interpretation Comments ALT (test code = ALT) 16 See_Comment [Auto mated message] The system which ge nerated this result transmit sheba reference range : <=65. The reference range was not used to interpr et this result as edy l/abnormal. [place] 457353-02-21 12:50:00 Test Item Value Reference Range Interpretation Comments AST (test code = AST) 15 See_Comment [Auto mated message] The system which ge nerated this result transmit sheba reference range : <=37. The reference range was not used to interpr et this result as edy l/abnormal. [facility] [id number] 12:50:00 Test Item Value Reference Range Interpretation Comments Alk Phos (test code = Alk Phos) 96 39-136 [facility] [id number] 12:50:00 Test Item Value Reference Range Interpretation Comments Bili Total (test code = Bili Total) 0.2 0.2-1.3 [facility] [id number] 12:50:00 Test Item Value Reference Range Interpretation Comments Bili Direct (test code no gt See_Comment [Aut omated message] The = Bili Direct) system which generated this result tra nsmitted reference range : <=0.3. The reference r christiano was not used to int erpret this result as edy l/abnormal. [facility] [id number] 12:50:00 Test Item Value Reference Range Interpretation Comments Bili Indirect Unable to See_Comment [Automated (test code = Bili Calculate message] T he system Indirect) which generated this result transmitted reference range : <=1.0. The reference range was not used to interpret this result as normal/abnormal . [facility] CenterOmtwfgzYZRUIXPMM3384-00-73 12:50:00 Test Item Value Reference Range Interpretation Comments Ethanol Lvl (test code = Ethanol Lvl) no gt [facility] CenterDzjoypgSYDUXYSYD2404-97-49 12:50:00 Test Item Value Reference Range Interpretation Comments Etoh (%) (test code = Etoh (%)) no gt [facility] CenterBiwbrpqLITJJURUM7950-39-33 12:50:00 Test Item Value Reference Range Interpretation Comments Lactic Acid Lvl (test code = Lactic 0.7 0.5-2.2 Acid Lvl) [place] [address]-02-21 12:50:00 Test Item Value Reference Range Interpretation Comments Total Protein (test code = Total 6.1 6.4-8.4 Protein) [place] [address]-02-21 12:50:00 Test Item Value Reference Range Interpretation Comments Albumin Lvl (test code = Albumin Lvl) 2.9 3.5-5.0 [facility]GpvzqdePWHBOMCOE5283-29-49 12:50:00 Test Item Value Reference Range Interpretation Comments Globulin (test code = Globulin) 3.2 2.7-4.2 [place] 922233-02-21 12:50:00 Test Item Value Reference Range Interpretation Comments A/G Ratio (test code = A/G Ratio) 0.9 1 0.7-1.6 [facility]aleQeaksayEBJEWJPLI0131-96-18 12:50:00 Test Item Value Reference Range Interpretation Comments ALT (test code = ALT) 16 See_Comment [Auto mated message] The system which ge nerated this result transmit sheba reference range : <=65. The reference range was not used to interpr et this result as edy l/abnormal. [facility]valeMqrzdmbMLYIVVAMX7601-12-04 12:50:00 Test Item Value Reference Range Interpretation Comments AST (test code = AST) 15 See_Comment [Auto mated message] The system which ge nerated this result transmit sheba reference range : <=37. The reference range was not used to interpr et this result as edy l/abnormal. [facility]valeNtfxlkeHQESASTPJ6991-52-66 12:50:00 Test Item Value Reference Range Interpretation Comments Alk Phos (test code = Alk Phos) 96 39-136 [facility]aleEvbkwvbWQFYXPCCI6146-55-74 12:50:00 Test Item Value Reference Range Interpretation Comments Bili Total (test code = Bili Total) 0.2 0.2-1.3 [facility] SunnyvaleVysmpnmHRCLEZCJD5986-01-03 12:50:00 Test Item Value Reference Range Interpretation Comments Bili Direct (test code no gt See_Comment [Aut omated message] The = Bili Direct) system which generated this result tra nsmitted reference range : <=0.3. The reference r christiano was not used to int erpret this result as edy l/abnormal. [facility]valeYyfvrjiBNURTYVMZ0927-88-64 12:50:00 Test Item Value Reference Range Interpretation Comments Bili Indirect Unable to See_Comment [Automated (test code = Bili Calculate message] T he system Indirect) which generated this result transmitted reference range : <=1.0. The reference range was not used to interpret this result as normal/abnormal . [facility] SunnyvaleUlwmhxpYYYSZRMTT6412-48-99 12:50:00 Test Item Value Reference Range Interpretation Comments HS Troponin I (test code = HS Troponin 15 I) [facility]GynrkdqKABAJWZWZ2003-13-37 12:50:00 Test Item Value Reference Range Interpretation Comments pH Justin (test code = pH Justin) 7.35 1 7.28-7.42 [place] 922233-02-21 12:50:00 Test Item Value Reference Range Interpretation Comments pCO2 Justin (test code = pCO2 Justin) 55 38-52 [place] 922233-02-21 12:50:00 Test Item Value Reference Range Interpretation Comments pO2 Justin (test code = pO2 Justin) 43 20-49 [place] 922233-02-21 12:50:00 Test Item Value Reference Range Interpretation Comments HCO3 Justin (test code = HCO3 Justin) 30 22-26 [place] [address]-02-21 12:50:00 Test Item Value Reference Range Interpretation Comments BE Justin (test code = BE Justin) 3 -2-2 [place] 922233-02-21 12:50:00 Test Item Value Reference Range Interpretation Comments O2 Sat Justin (calc) (test code = O2 Sat 75.9 40.0-70.0 Justin (calc)) [facility] TexasKxmlsflZNANBSMPR3254-62-35 12:50:00 Test Item Value Reference Range Interpretation Comments Temp Justin (test code = Temp Justin) 37.0 [place] 963423-02-21 12:50:00 Test Item Value Reference Range Interpretation Comments ACT (TEG) Rapid (test code = ACT (TEG) 113 s 86-118 Rapid) [place] 963423-02-21 12:50:00 Test Item Value Reference Range Interpretation Comments Split Point Rapid (test code = Split 0.6 min Point Rapid) [facility]ioersvRBTWVPVFKG6098-83-[facility] 12:50:00 Test Item Value Reference Range Interpretation Comments R-time Rapid (test code = R-time 0.7 min 0.4-0.7 Rapid) [place] 963423-02-21 12:50:00 Test Item Value Reference Range Interpretation Comments K-time Rapid (test code = K-time 1.1 min 0.6-2.3 Rapid) [place] 963423-02-21 12:50:00 Test Item Value Reference Range Interpretation Comments Angle Rapid (test code = Angle 78 degrees 64-80 Rapid) [place] [address]-02-21 12:50:00 Test Item Value Reference Range Interpretation Comments Max Amplitude Rapid (test code = Max 65 mm 52-71 Amplitude Rapid) [place] [address]-02-21 12:50:00 Test Item Value Reference Range Interpretation Comments G-value Rapid (test code = G-value 9.2 5.0-11.6 Rapid) [place] [address]-02-21 12:50:00 Test Item Value Reference Range Interpretation Comments Estimated % Lysis Rapid 0.0 See_Comment [Au tomated message] The (test code = Estimated syste m which generated % Lysis Rapid) this result t ransmitted reference range : <=7.5. The reference r christiano was not used to int erpret this result as normal/abnormal . [place] 963423-02-21 12:50:00 Test Item Value Reference Range Interpretation Comments Plt Morph (test code = See Note 1(11/21/22 Plt Morph) 6:50 AM) [place] [address]-02-21 12:50:00 Test Item Value Reference Range Interpretation Comments Stomatocyte (test code = Stomatocyte) slight [place] [address]-02-21 12:50:00 Test Item Value Reference Range Interpretation Comments WBC X 10x3 (test code = WBC X 10x3) 8.7 3.7-10.4 [place] [address]-02-21 12:50:00 Test Item Value Reference Range Interpretation Comments RBC X 10x6 (test code = RBC X 10x6) 3.56 4.20-5.40 [place] [address]-02-21 12:50:00 Test Item Value Reference Range Interpretation Comments Hgb (test code = Hgb) 10.4 12.0-16.0 [place] [address]-02-21 12:50:00 Test Item Value Reference Range Interpretation Comments Hct (test code = Hct) 32.3 36.0-48.0 [place] [address]-02-21 12:50:00 Test Item Value Reference Range Interpretation Comments MCV (test code = MCV) 90.8 80.0-98.0 [place] [address]-02-21 12:50:00 Test Item Value Reference Range Interpretation Comments MCH (test code = MCH) 29.3 pg 27.0-31.0 [place] 963423-02-21 12:50:00 Test Item Value Reference Range Interpretation Comments MCHC (test code = MCHC) 32.2 32.0-36.0 [facility]XmfjbooPYDEHVSOYQ1119-39-98 12:50:00 Test Item Value Reference Range Interpretation Comments RDW (test code = RDW) 13.7 11.5-14.5 [facility] HospitalOseqllcDUHWHMRIAT4845-24-60 12:50:00 Test Item Value Reference Range Interpretation Comments Platelet (test code = Platelet) 137 133-450 [place] 963423-02-21 12:50:00 Test Item Value Reference Range Interpretation Comments MPV (test code = MPV) 7.9 7.4-10.4 [place] 963423-02-21 12:50:00 Test Item Value Reference Range Interpretation Comments ACT (TEG) Rapid (test code = ACT (TEG) 113 s 86-118 Rapid) [place] 963423-02-21 12:50:00 Test Item Value Reference Range Interpretation Comments Split Point Rapid (test code = Split 0.6 min Point Rapid) [place] 963423-02-21 12:50:00 Test Item Value Reference Range Interpretation Comments R-time Rapid (test code = R-time 0.7 min 0.4-0.7 Rapid) [place] [address]-02-21 12:50:00 Test Item Value Reference Range Interpretation Comments K-time Rapid (test code = K-time 1.1 min 0.6-2.3 Rapid) [place] 963423-02-21 12:50:00 Test Item Value Reference Range Interpretation Comments Angle Rapid (test code = Angle 78 degrees 64-80 Rapid) [place] 963423-02-21 12:50:00 Test Item Value Reference Range Interpretation Comments Max Amplitude Rapid (test code = Max 65 mm 52-71 Amplitude Rapid) [place] [address]-02-21 12:50:00 Test Item Value Reference Range Interpretation Comments G-value Rapid (test code = G-value 9.2 5.0-11.6 Rapid) [place] 963423-02-21 12:50:00 Test Item Value Reference Range Interpretation Comments Estimated % Lysis Rapid 0.0 See_Comment [Au tomated message] The (test code = Estimated syste m which generated % Lysis Rapid) this result t ransmitted reference range : <=7.5. The reference r christiano was not used to int erpret this result as normal/abnormal . [facility] HospitalAlytizvRPOAATMTXH8702-69-71 12:50:00 Test Item Value Reference Range Interpretation Comments Plt Morph (test code = See Note 1(11/21/22 Plt Morph) 6:50 AM) [place] 963423-02-21 12:50:00 Test Item Value Reference Range Interpretation Comments Segs (test code = Segs) 64.1 45.0-75.0 [place] 963423-02-21 12:50:00 Test Item Value Reference Range Interpretation Comments Lymphocytes (test code = Lymphocytes) 22.0 20.0-40.0 [place] 963423-02-21 12:50:00 Test Item Value Reference Range Interpretation Comments Monocytes (test code = Monocytes) 8.3 2.0-12.0 [place] 963423-02-21 12:50:00 Test Item Value Reference Range Interpretation Comments Eosinophils (test code = 4.7 See_Comment [A utomated message] The Eosinophils) system which ge nerated this result tra nsmitted reference range : <=4.0. The reference r christiano was not used to int erpret this result as normal/abnormal . [place] 963423-02-21 12:50:00 Test Item Value Reference Range Interpretation Comments Basophils (test code = 0.9 See_Comment [Aut omated message] The Basophils) system which ge nerated this result tra nsmitted reference range : <=1.0. The reference r christiano was not used to int erpret this result as normal/abnormal . [facility] HospitalErhejalVNZQJUBYGP6176-68-45 12:50:00 Test Item Value Reference Range Interpretation Comments Neutrophils # (test code = Neutrophils 5.6 1.5-8.1 #) [place] 963423-02-21 12:50:00 Test Item Value Reference Range Interpretation Comments Lymphocytes # (test code = Lymphocytes 1.9 1.0-5.5 #) [place] 963423-02-21 12:50:00 Test Item Value Reference Range Interpretation Comments Monocytes # (test code 0.7 See_Comment [Aut omated message] The = Monocytes #) system which generated this result tra nsmitted reference range : <=0.8. The reference r christiano was not used to int erpret this result as normal/abnormal . [facility] JkvoevbLMJXBHYQEP4331-55-02 12:50:00 Test Item Value Reference Range Interpretation Comments Eosinophils # (test code 0.4 See_Comment [A utomated message] The = Eosinophils #) system whic h generated this result tra nsmitted reference range : <=0.5. The reference r christiano was not used to int erpret this result as normal/abnormal . [facility] YezbkxeLDKMDQFVBA1480-59-96 12:50:00 Test Item Value Reference Range Interpretation Comments Basophils # (test code 0.1 See_Comment [Aut omated message] The = Basophils #) system which generated this result tra nsmitted reference range : <=0.2. The reference r christiano was not used to int erpret this result as normal/abnormal . [facility]aleJtdaknwBERTQGJLFS3758-22-92 12:50:00 Test Item Value Reference Range Interpretation Comments Stomatocyte (test code = Stomatocyte) slight [facility]aleFtwnkszXFYREHJOQI7143-13-91 12:50:00 Test Item Value Reference Range Interpretation Comments Ethanol Lvl (test code = Ethanol Lvl) no gt [facility] IkgvlkvHJTWLWKBRM2568-76-08 12:50:00 Test Item Value Reference Range Interpretation Comments Etoh (%) (test code = Etoh (%)) no gt [facility] W-21 [id number] 12:50:00 Test Item Value Reference Range Interpretation Comments ABO/Rh (test code = ABO/Rh) O POS [place] [employer] SPKVUJZ0786-42-46 12:50:00 Test Item Value Reference Range Interpretation Comments Antibody Scrn (test Negative (11/21/22 6:50 code = Antibody Scrn) AM) [facility] W-21 TLGHVWR6270-02-11 12:50:00 Test Item Value Reference Range Interpretation Comments ABO/Rh (test code = ABO/Rh) O POS [place] [employer] [id number] 12:50:00 Test Item Value Reference Range Interpretation Comments Antibody Scrn (test Negative (11/21/22 6:50 code = Antibody Scrn) AM) [facility] KIMDKZN4438-08-04 12:50:00 Test Item Value Reference Range Interpretation Comments HS Troponin I (test code = HS Troponin 15 I) [facility] [id number] 12:50:00 Test Item Value Reference Range Interpretation Comments Glucose Lvl (test code = Glucose Lvl) 99 70-99 [place] 457353-02-21 12:50:00 Test Item Value Reference Range Interpretation Comments BUN (test code = BUN) 38 7-22 [facility]2023-02-21 12:50:00 Test Item Value Reference Range Interpretation Comments Creatinine Lvl (test code = Creatinine 2.38 0.50-1.40 Lvl) [facility]2023-02-21 12:50:00 Test Item Value Reference Range Interpretation Comments Sodium Lvl (test code = Sodium Lvl) 140 135-145 [facility]2023-02-21 12:50:00 Test Item Value Reference Range Interpretation Comments Potassium Lvl (test code = Potassium 3.9 3.5-5.1 Lvl) [facility]2023-02-21 12:50:00 Test Item Value Reference Range Interpretation Comments Chloride Lvl (test code = Chloride Lvl) 107 95-109 [facility]2023-02-21 12:50:00 Test Item Value Reference Range Interpretation Comments CO2 (test code = CO2) 27 24-32 [facility]2023-02-21 12:50:00 Test Item Value Reference Range Interpretation Comments Calcium Lvl (test code = Calcium Lvl) 8.1 8.5-10.5 [facility]2023-02-21 12:50:00 Test Item Value Reference Range Interpretation Comments AGAP (test code = AGAP) 9.9 10.0-20.0 [place] 457353-02-21 12:50:00 Test Item Value Reference Range Interpretation Comments eGFR (test code = eGFR) 20 [facility]2023-02-21 12:50:00 Test Item Value Reference Range Interpretation Comments Lactic Acid Lvl (test code = Lactic 0.7 0.5-2.2 Acid Lvl) [facility]2023-02-21 12:50:00 Test Item Value Reference Range Interpretation Comments Total Protein (test code = Total 6.1 6.4-8.4 Protein) [place] [address]-02-21 12:50:00 Test Item Value Reference Range Interpretation Comments Albumin Lvl (test code = Albumin Lvl) 2.9 3.5-5.0 [place] [address]-02-21 12:50:00 Test Item Value Reference Range Interpretation Comments Globulin (test code = Globulin) 3.2 2.7-4.2 [place] [address]-02-21 12:50:00 Test Item Value Reference Range Interpretation Comments A/G Ratio (test code = A/G Ratio) 0.9 1 0.7-1.6 [place] [address]-02-21 12:50:00 Test Item Value Reference Range Interpretation Comments ALT (test code = ALT) 16 See_Comment [Auto mated message] The system which ge nerated this result transmit sheba reference range : <=65. The reference range was not used to interpr et this result as edy l/abnormal. [facility] CenterSAM[facility]els [id number] 12:50:00 Test Item Value Reference Range Interpretation Comments AST (test code = AST) 15 See_Comment [Auto mated message] The system which ge nerated this result transmit sheba reference range : <=37. The reference range was not used to interpr et this result as edy l/abnormal. [place] [address]-02-21 12:50:00 Test Item Value Reference Range Interpretation Comments Alk Phos (test code = Alk Phos) 96 39-136 [place] [address]-02-21 12:50:00 Test Item Value Reference Range Interpretation Comments Bili Total (test code = Bili Total) 0.2 0.2-1.3 [place] [address]-02-21 12:50:00 Test Item Value Reference Range Interpretation Comments Bili Direct (test code no gt See_Comment [Aut omated message] The = Bili Direct) system which generated this result tra nsmitted reference range : <=0.3. The reference r christiano was not used to int erpret this result as edy l/abnormal. [facility] CenterSAM[facility] [id number] 12:50:00 Test Item Value Reference Range Interpretation Comments Bili Indirect Unable to See_Comment [Automated (test code = Bili Calculate message] T he system Indirect) which generated this result transmitted reference range : <=1.0. The reference range was not used to interpret this result as normal/abnormal . [facility] TexasVhgyedtEKEPIYQLP1494-61-30 12:50:00 Test Item Value Reference Range Interpretation Comments Ethanol Lvl (test code = Ethanol Lvl) no gt [facility] TexasOcbewekYJOPRVZMC8391-11-08 12:50:00 Test Item Value Reference Range Interpretation Comments Etoh (%) (test code = Etoh (%)) no gt [facility] TexasIdolefnWYRAOUNDY2213-43-40 12:50:00 Test Item Value Reference Range Interpretation Comments Lactic Acid Lvl (test code = Lactic 0.7 0.5-2.2 Acid Lvl) [place] 922233-02-21 12:50:00 Test Item Value Reference Range Interpretation Comments Total Protein (test code = Total 6.1 6.4-8.4 Protein) [facility] TexasExiwotnJCYNLWOZD5611-79-86 12:50:00 Test Item Value Reference Range Interpretation Comments Albumin Lvl (test code = Albumin Lvl) 2.9 3.5-5.0 [place] 922233-02-21 12:50:00 Test Item Value Reference Range Interpretation Comments Globulin (test code = Globulin) 3.2 2.7-4.2 [place] [address]-02-21 12:50:00 Test Item Value Reference Range Interpretation Comments A/G Ratio (test code = A/G Ratio) 0.9 1 0.7-1.6 [place] 922233-02-21 12:50:00 Test Item Value Reference Range Interpretation Comments ALT (test code = ALT) 16 See_Comment [Auto mated message] The system which ge nerated this result transmit sheba reference range : <=65. The reference range was not used to interpr et this result as edy l/abnormal. [place] 922233-02-21 12:50:00 Test Item Value Reference Range Interpretation Comments AST (test code = AST) 15 See_Comment [Auto mated message] The system which ge nerated this result transmit sheba reference range : <=37. The reference range was not used to interpr et this result as edy l/abnormal. [place] 922233-02-21 12:50:00 Test Item Value Reference Range Interpretation Comments Alk Phos (test code = Alk Phos) 96 39-136 [facility] TexasSztloztPDLXKEMUL1692-77-37 12:50:00 Test Item Value Reference Range Interpretation Comments Bili Total (test code = Bili Total) 0.2 0.2-1.3 [place] 922233-02-21 12:50:00 Test Item Value Reference Range Interpretation Comments Bili Direct (test code no gt See_Comment [Aut omated message] The = Bili Direct) system which generated this result tra nsmitted reference range : <=0.3. The reference r christiano was not used to int erpret this result as edy l/abnormal. [facility] TexasVhfwbpgQGKPBNVEF6791-10-84 12:50:00 Test Item Value Reference Range Interpretation Comments Bili Indirect Unable to See_Comment [Automated (test code = Bili Calculate message] T he system Indirect) which generated this result transmitted reference range : <=1.0. The reference range was not used to interpret this result as normal/abnormal . [facility] TexasFevolxcQTTEOTMRL4361-37-79 12:50:00 Test Item Value Reference Range Interpretation Comments HS Troponin I (test code = HS Troponin 15 I) [facility] TexasNieizbrFNYTZUJEG2643-52-15 12:50:00 Test Item Value Reference Range Interpretation Comments pH Justin (test code = pH Justin) 7.35 1 7.28-7.42 [facility] TexasSgrkckbEFBPQUSRD3168-51-83 12:50:00 Test Item Value Reference Range Interpretation Comments pCO2 Justin (test code = pCO2 Justin) 55 38-52 [facility] TexasHgpjsivCWGQEWFJL9429-75-64 12:50:00 Test Item Value Reference Range Interpretation Comments pO2 Justin (test code = pO2 Justin) 43 20-49 [place] 922233-02-21 12:50:00 Test Item Value Reference Range Interpretation Comments HCO3 Justin (test code = HCO3 Justin) 30 22-26 [place] 922233-02-21 12:50:00 Test Item Value Reference Range Interpretation Comments BE Justin (test code = BE Justin) 3 -2-2 [facility] TexasKjwvyawQRQJHMQBB0136-97-03 12:50:00 Test Item Value Reference Range Interpretation Comments O2 Sat Justin (calc) (test code = O2 Sat 75.9 40.0-70.0 Justin (calc)) [facility] TexasZcnkuruHDJZKHKTK9685-94-09 12:50:00 Test Item Value Reference Range Interpretation Comments Temp Justin (test code = Temp Justin) 37.0 [place] 963423-02-21 12:50:00 Test Item Value Reference Range Interpretation Comments ACT (TEG) Rapid (test code = ACT (TEG) 113 s 86-118 Rapid) [place] 963423-02-21 12:50:00 Test Item Value Reference Range Interpretation Comments Split Point Rapid (test code = Split 0.6 min Point Rapid) [facility]zhqZLDSFMOADY7040-[facility]-88 12:50:00 Test Item Value Reference Range Interpretation Comments R-time Rapid (test code = R-time 0.7 min 0.4-0.7 Rapid) [place] 963423-02-21 12:50:00 Test Item Value Reference Range Interpretation Comments K-time Rapid (test code = K-time 1.1 min 0.6-2.3 Rapid) [place] 963423-02-21 12:50:00 Test Item Value Reference Range Interpretation Comments Angle Rapid (test code = Angle 78 degrees 64-80 Rapid) [facility] HospitalUtmpipdOCRHHATRSR2665-56-51 12:50:00 Test Item Value Reference Range Interpretation Comments Max Amplitude Rapid (test code = Max 65 mm 52-71 Amplitude Rapid) [place] 963423-02-21 12:50:00 Test Item Value Reference Range Interpretation Comments G-value Rapid (test code = G-value 9.2 5.0-11.6 Rapid) [place] 963423-02-21 12:50:00 Test Item Value Reference Range Interpretation Comments Estimated % Lysis Rapid 0.0 See_Comment [Au tomated message] The (test code = Estimated syste m which generated % Lysis Rapid) this result t ransmitted reference range : <=7.5. The reference r christiano was not used to int erpret this result as normal/abnormal . [facility] HospitalYifplrrXFAZBHTUFW2810-90-06 12:50:00 Test Item Value Reference Range Interpretation Comments Plt Morph (test code = See Note 1(11/21/22 Plt Morph) 6:50 AM) [place] 963423-02-21 12:50:00 Test Item Value Reference Range Interpretation Comments Stomatocyte (test code = Stomatocyte) slight [place] 963423-02-21 12:50:00 Test Item Value Reference Range Interpretation Comments WBC X 10x3 (test code = WBC X 10x3) 8.7 3.7-10.4 [place] [address]-02-21 12:50:00 Test Item Value Reference Range Interpretation Comments RBC X 10x6 (test code = RBC X 10x6) 3.56 4.20-5.40 [place] [address]-02-21 12:50:00 Test Item Value Reference Range Interpretation Comments Hgb (test code = Hgb) 10.4 12.0-16.0 [place] [address]-02-21 12:50:00 Test Item Value Reference Range Interpretation Comments Hct (test code = Hct) 32.3 36.0-48.0 [place] [address]-02-21 12:50:00 Test Item Value Reference Range Interpretation Comments MCV (test code = MCV) 90.8 80.0-98.0 [place] [address]-02-21 12:50:00 Test Item Value Reference Range Interpretation Comments MCH (test code = MCH) 29.3 pg 27.0-31.0 [place] [address]-02-21 12:50:00 Test Item Value Reference Range Interpretation Comments MCHC (test code = MCHC) 32.2 32.0-36.0 [place] [address]-02-21 12:50:00 Test Item Value Reference Range Interpretation Comments RDW (test code = RDW) 13.7 11.5-14.5 [place] [address]-02-21 12:50:00 Test Item Value Reference Range Interpretation Comments Platelet (test code = Platelet) 137 133-450 [place] [address]-02-21 12:50:00 Test Item Value Reference Range Interpretation Comments MPV (test code = MPV) 7.9 7.4-10.4 [place] [address]-02-21 12:50:00 Test Item Value Reference Range Interpretation Comments ACT (TEG) Rapid (test code = ACT (TEG) 113 s 86-118 Rapid) [place] [address]-02-21 12:50:00 Test Item Value Reference Range Interpretation Comments Split Point Rapid (test code = Split 0.6 min Point Rapid) [place] [address]-02-21 12:50:00 Test Item Value Reference Range Interpretation Comments R-time Rapid (test code = R-time 0.7 min 0.4-0.7 Rapid) [place] [address]-02-21 12:50:00 Test Item Value Reference Range Interpretation Comments K-time Rapid (test code = K-time 1.1 min 0.6-2.3 Rapid) [place] [address]-02-21 12:50:00 Test Item Value Reference Range Interpretation Comments Angle Rapid (test code = Angle 78 degrees 64-80 Rapid) [place] [address]-02-21 12:50:00 Test Item Value Reference Range Interpretation Comments Max Amplitude Rapid (test code = Max 65 mm 52-71 Amplitude Rapid) [place] [address]-02-21 12:50:00 Test Item Value Reference Range Interpretation Comments G-value Rapid (test code = G-value 9.2 5.0-11.6 Rapid) [place] [address]-02-21 12:50:00 Test Item Value Reference Range Interpretation Comments Estimated % Lysis Rapid 0.0 See_Comment [Au tomated message] The (test code = Estimated syste m which generated % Lysis Rapid) this result t ransmitted reference range : <=7.5. The reference r christiano was not used to int erpret this result as normal/abnormal . [place] [address]-02-21 12:50:00 Test Item Value Reference Range Interpretation Comments Plt Morph (test code = See Note 1(11/21/22 Plt Morph) 6:50 AM) [place] [address]-02-21 12:50:00 Test Item Value Reference Range Interpretation Comments Segs (test code = Segs) 64.1 45.0-75.0 [place] [address]-02-21 12:50:00 Test Item Value Reference Range Interpretation Comments Lymphocytes (test code = Lymphocytes) 22.0 20.0-40.0 [place] [address]-02-21 12:50:00 Test Item Value Reference Range Interpretation Comments Monocytes (test code = Monocytes) 8.3 2.0-12.0 [place] [address]-02-21 12:50:00 Test Item Value Reference Range Interpretation Comments Eosinophils (test code = 4.7 See_Comment [A utomated message] The Eosinophils) system which ge nerated this result tra nsmitted reference range : <=4.0. The reference r christiano was not used to int erpret this result as normal/abnormal . [place] 963423-02-21 12:50:00 Test Item Value Reference Range Interpretation Comments Basophils (test code = 0.9 See_Comment [Aut omated message] The Basophils) system which ge nerated this result tra nsmitted reference range : <=1.0. The reference r christiano was not used to int erpret this result as normal/abnormal . [place] [address]-02-21 12:50:00 Test Item Value Reference Range Interpretation Comments Neutrophils # (test code = Neutrophils 5.6 1.5-8.1 #) [place] 963423-02-21 12:50:00 Test Item Value Reference Range Interpretation Comments Lymphocytes # (test code = Lymphocytes 1.9 1.0-5.5 #) [place] [address]-02-21 12:50:00 Test Item Value Reference Range Interpretation Comments Monocytes # (test code 0.7 See_Comment [Aut omated message] The = Monocytes #) system which generated this result tra nsmitted reference range : <=0.8. The reference r christiano was not used to int erpret this result as normal/abnormal . [place] 963423-02-21 12:50:00 Test Item Value Reference Range Interpretation Comments Eosinophils # (test code 0.4 See_Comment [A utomated message] The = Eosinophils #) system [facility] generated this result tra nsmitted reference range : <=0.5. The reference r christiano was not used to int erpret this result as normal/abnormal . [place] 963423-02-21 12:50:00 Test Item Value Reference Range Interpretation Comments Basophils # (test code 0.1 See_Comment [Aut omated message] The = Basophils #) system which generated this result tra nsmitted reference range : <=0.2. The reference r christiano was not used to int erpret this result as normal/abnormal . [place] 963423-02-21 12:50:00 Test Item Value Reference Range Interpretation Comments Stomatocyte (test code = Stomatocyte) slight [facility] SunnyvaleRilcoimSUXTIPKHTB1136-63-96 12:50:00 Test Item Value Reference Range Interpretation Comments Ethanol Lvl (test code = Ethanol Lvl) no gt [facility] HsindwtFQNVCOWWNJ0187-92-65 12:50:00 Test Item Value Reference Range Interpretation Comments Etoh (%) (test code = Etoh (%)) no gt [facility] W-21 [id number] 12:50:00 Test Item Value Reference Range Interpretation Comments ABO/Rh (test code = ABO/Rh) O POS [facility] W-21 [id number] 12:50:00 Test Item Value Reference Range Interpretation Comments Antibody Scrn (test Negative (11/21/22 6:50 code = Antibody Scrn) AM) [facility] W-21 [id number] 12:50:00 Test Item Value Reference Range Interpretation Comments ABO/Rh (test code = ABO/Rh) O POS [facility] W-21 COLMOBY8741-26-02 12:50:00 Test Item Value Reference Range Interpretation Comments Antibody Scrn (test Negative (11/21/22 6:50 code = Antibody Scrn) AM) [facility] SelpheeCARDIAC [id number] 12:50:00 Test Item Value Reference Range Interpretation Comments HS Troponin I (test code = HS Troponin 15 I) [place] [id number] 12:50:00 Test Item Value Reference Range Interpretation Comments Glucose Lvl (test code = Glucose Lvl) 99 70-99 [facility] barcoo2023-02-21 12:50:00 Test Item Value Reference Range Interpretation Comments BUN (test code = BUN) 38 7-22 [facility] barcoo2023-02-21 12:50:00 Test Item Value Reference Range Interpretation Comments Creatinine Lvl (test code = Creatinine 2.38 0.50-1.40 Lvl) [place]2023-02-21 12:50:00 Test Item Value Reference Range Interpretation Comments Sodium Lvl (test code = Sodium Lvl) 140 135-145 [place]2023-02-21 12:50:00 Test Item Value Reference Range Interpretation Comments Potassium Lvl (test code = Potassium 3.9 3.5-5.1 Lvl) [place]2023-02-21 12:50:00 Test Item Value Reference Range Interpretation Comments Chloride Lvl (test code = Chloride Lvl) 107 95-109 [place] 457353-02-21 12:50:00 Test Item Value Reference Range Interpretation Comments CO2 (test code = CO2) 27 24-32 [place] 457353-02-21 12:50:00 Test Item Value Reference Range Interpretation Comments Calcium Lvl (test code = Calcium Lvl) 8.1 8.5-10.5 [place] 457353-02-21 12:50:00 Test Item Value Reference Range Interpretation Comments AGAP (test code = AGAP) 9.9 10.0-20.0 [place] 457353-02-21 12:50:00 Test Item Value Reference Range Interpretation Comments eGFR (test code = eGFR) 20 [facility]2023-02-21 12:50:00 Test Item Value Reference Range Interpretation Comments Lactic Acid Lvl (test code = Lactic 0.7 0.5-2.2 Acid Lvl) [place] 457353-02-21 12:50:00 Test Item Value Reference Range Interpretation Comments Total Protein (test code = Total 6.1 6.4-8.4 Protein) [place] 457353-02-21 12:50:00 Test Item Value Reference Range Interpretation Comments Albumin Lvl (test code = Albumin Lvl) 2.9 3.5-5.0 [place] 457353-02-21 12:50:00 Test Item Value Reference Range Interpretation Comments Globulin (test code = Globulin) 3.2 2.7-4.2 [place] 457353-02-21 12:50:00 Test Item Value Reference Range Interpretation Comments A/G Ratio (test code = A/G Ratio) 0.9 1 0.7-1.6 [place] [address]-02-21 12:50:00 Test Item Value Reference Range Interpretation Comments ALT (test code = ALT) 16 See_Comment [Auto mated message] The system which ge nerated this result transmit sheba reference range : <=65. The reference range was not used to interpr et this result as edy l/abnormal. [facility] CenterSAMHI Hotels [id number] 12:50:00 Test Item Value Reference Range Interpretation Comments AST (test code = AST) 15 See_Comment [Auto mated message] The system which ge nerated this result transmit sheba reference range : <=37. The reference range was not used to interpr et this result as edy l/abnormal. [facility] [employer] [id number] 12:50:00 Test Item Value Reference Range Interpretation Comments Alk Phos (test code = Alk Phos) 96 39-136 [facility] SunnyvaleGimmie [id number] 12:50:00 Test Item Value Reference Range Interpretation Comments Bili Total (test code = Bili Total) 0.2 0.2-1.3 [facility]aleGimmie [id number] 12:50:00 Test Item Value Reference Range Interpretation Comments Bili Direct (test code no gt See_Comment [Aut omated message] The = Bili Direct) system which generated this result tra nsmitted reference range : <=0.3. The reference r christiano was not used to int erpret this result as edy l/abnormal. [facility]aleGimmie [id number] 12:50:00 Test Item Value Reference Range Interpretation Comments Bili Indirect Unable to See_Comment [Automated (test code = Bili Calculate message] T he system Indirect) which generated this result transmitted reference range : <=1.0. The reference range was not used to interpret this result as normal/abnormal . [facility] CenterNayxdrlUEVKISYJW9479-76-68 12:50:00 Test Item Value Reference Range Interpretation Comments Ethanol Lvl (test code = Ethanol Lvl) no [facility]fhqremVDIJPKUTN3699-16-67 12:50:00 Test Item Value Reference Range Interpretation Comments Etoh (%) (test code = Etoh (%)) no [facility] HospitalKmyrkddIAWERZLXW3380-22-94 12:50:00 Test Item Value Reference Range Interpretation Comments Lactic Acid Lvl (test code = Lactic 0.7 0.5-2.2 Acid Lvl) [place] 922233-02-21 12:50:00 Test Item Value Reference Range Interpretation Comments Total Protein (test code = Total 6.1 6.4-8.4 Protein) [place] 922233-02-21 12:50:00 Test Item Value Reference Range Interpretation Comments Albumin Lvl (test code = Albumin Lvl) 2.9 3.5-5.0 [facility] CenterInnvqkuTRZQIGNRD4386-95-83 12:50:00 Test Item Value Reference Range Interpretation Comments Globulin (test code = Globulin) 3.2 2.7-4.2 [facility] SunnyvaleFswtlbfFJOKZFVBQ4109-67-47 12:50:00 Test Item Value Reference Range Interpretation Comments A/G Ratio (test code = A/G Ratio) 0.9 1 0.7-1.6 [facility] SunnyvaleBlbvxwfJNZWKYZBD4978-46-15 12:50:00 Test Item Value Reference Range Interpretation Comments ALT (test code = ALT) 16 See_Comment [Auto mated message] The system which ge nerated this result transmit sheba reference range : <=65. The reference range was not used to interpr et this result as edy l/abnormal. [facility] SunnyvaleGwzurkgXOEOYDOPU1773-21-19 12:50:00 Test Item Value Reference Range Interpretation Comments AST (test code = AST) 15 See_Comment [Auto mated message] The system which ge nerated this result transmit sheba reference range : <=37. The reference range was not used to interpr et this result as edy l/abnormal. [facility] OvyzqfxWMPVKHOCD7617-44-99 12:50:00 Test Item Value Reference Range Interpretation Comments Alk Phos (test code = Alk Phos) 96 39-136 [facility] SunnyvaleHjpgzlzKFVOMIJVG7615-03-73 12:50:00 Test Item Value Reference Range Interpretation Comments Bili Total (test code = Bili Total) 0.2 0.2-1.3 [facility] SunnyvaleCeeudccFMQWAEYYT1340-05-17 12:50:00 Test Item Value Reference Range Interpretation Comments Bili Direct (test code no gt See_Comment [Aut omated message] The = Bili Direct) system which generated this result tra nsmitted reference range : <=0.3. The reference r christiano was not used to int erpret this result as edy l/abnormal. [facility] AqqhvezPKCGPQNMG2234-33-28 12:50:00 Test Item Value Reference Range Interpretation Comments Bili Indirect Unable to See_Comment [Automated (test code = Bili Calculate message] T he system Indirect) which generated this result transmitted reference range : <=1.0. The reference range was not used to interpret this result as normal/abnormal . [facility] BjpsobhYEUADAVLB7103-28-05 12:50:00 Test Item Value Reference Range Interpretation Comments HS Troponin I (test code = HS Troponin 15 I) [facility] TexasHnpbepkQTMMFCPXZ9195-95-20 12:50:00 Test Item Value Reference Range Interpretation Comments pH Justin (test code = pH Justin) 7.35 1 7.28-7.42 [place] 922233-02-21 12:50:00 Test Item Value Reference Range Interpretation Comments pCO2 Justin (test code = pCO2 Justin) 55 38-52 [place] 922233-02-21 12:50:00 Test Item Value Reference Range Interpretation Comments pO2 Justin (test code = pO2 Justin) 43 20-49 [place] 922233-02-21 12:50:00 Test Item Value Reference Range Interpretation Comments HCO3 Justin (test code = HCO3 Justin) 30 22-26 [place] 922233-02-21 12:50:00 Test Item Value Reference Range Interpretation Comments BE Justin (test code = BE Justin) 3 -2-2 [facility] TexasUvygazvFPLJUMSYJ6537-29-21 12:50:00 Test Item Value Reference Range Interpretation Comments O2 Sat Justin (calc) (test code = O2 Sat 75.9 40.0-70.0 Justin (calc)) [facility] TexasBodmtsaCIBCXARBT8071-11-11 12:50:00 Test Item Value Reference Range Interpretation Comments Temp Justin (test code = Temp Justin) 37.0 [place] 963423-02-21 12:50:00 Test Item Value Reference Range Interpretation Comments ACT (TEG) Rapid (test code = ACT (TEG) 113 s 86-118 Rapid) [facility]KdxknpeGTPXZVDCCJ2550-75-75 12:50:00 Test Item Value Reference Range Interpretation Comments Split Point Rapid (test code = Split 0.6 min Point Rapid) [facility] HospitalPdfphazQXMVELPOPJ3870-31-14 12:50:00 Test Item Value Reference Range Interpretation Comments R-time Rapid (test code = R-time 0.7 min 0.4-0.7 Rapid) [place] 963423-02-21 12:50:00 Test Item Value Reference Range Interpretation Comments K-time Rapid (test code = K-time 1.1 min 0.6-2.3 Rapid) [place] 963423-02-21 12:50:00 Test Item Value Reference Range Interpretation Comments Angle Rapid (test code = Angle 78 degrees 64-80 Rapid) [place] [id number] 12:50:00 Test Item Value Reference Range Interpretation Comments Max Amplitude Rapid (test code = Max 65 mm 52-71 Amplitude Rapid) [place] 963423-02-21 12:50:00 Test Item Value Reference Range Interpretation Comments G-value Rapid (test code = G-value 9.2 5.0-11.6 Rapid) [place] 963423-02-21 12:50:00 Test Item Value Reference Range Interpretation Comments Estimated % Lysis Rapid 0.0 See_Comment [Au tomated message] The (test code = Estimated syste m which generated % Lysis Rapid) this result t ransmitted reference range : <=7.5. The reference r christiano was not used to int erpret this result as normal/abnormal . [place] 963423-02-21 12:50:00 Test Item Value Reference Range Interpretation Comments Plt Morph (test code = See Note 1(11/21/22 Plt Morph) 6:50 AM) [place] 963423-02-21 12:50:00 Test Item Value Reference Range Interpretation Comments Stomatocyte (test code = Stomatocyte) slight [place] [address]-02-21 12:50:00 Test Item Value Reference Range Interpretation Comments WBC X 10x3 (test code = WBC X 10x3) 8.7 3.7-10.4 [place] [address]-02-21 12:50:00 Test Item Value Reference Range Interpretation Comments RBC X 10x6 (test code = RBC X 10x6) 3.56 4.20-5.40 [place] [address]-02-21 12:50:00 Test Item Value Reference Range Interpretation Comments Hgb (test code = Hgb) 10.4 12.0-16.0 [place] [address]-02-21 12:50:00 Test Item Value Reference Range Interpretation Comments Hct (test code = Hct) 32.3 36.0-48.0 [place] [address]-02-21 12:50:00 Test Item Value Reference Range Interpretation Comments MCV (test code = MCV) 90.8 80.0-98.0 [place] [address]-02-21 12:50:00 Test Item Value Reference Range Interpretation Comments MCH (test code = MCH) 29.3 pg 27.0-31.0 [place] [address]-02-21 12:50:00 Test Item Value Reference Range Interpretation Comments MCHC (test code = MCHC) 32.2 32.0-36.0 [place] 963423-02-21 12:50:00 Test Item Value Reference Range Interpretation Comments RDW (test code = RDW) 13.7 11.5-14.5 [place] 963423-02-21 12:50:00 Test Item Value Reference Range Interpretation Comments Platelet (test code = Platelet) 137 133-450 [place] 963423-02-21 12:50:00 Test Item Value Reference Range Interpretation Comments MPV (test code = MPV) 7.9 7.4-10.4 [place] [address]-02-21 12:50:00 Test Item Value Reference Range Interpretation Comments ACT (TEG) Rapid (test code = ACT (TEG) 113 s 86-118 Rapid) [place] 963423-02-21 12:50:00 Test Item Value Reference Range Interpretation Comments Split Point Rapid (test code = Split 0.6 min Point Rapid) [place] [address]-02-21 12:50:00 Test Item Value Reference Range Interpretation Comments R-time Rapid (test code = R-time 0.7 min 0.4-0.7 Rapid) [place] [address]-02-21 12:50:00 Test Item Value Reference Range Interpretation Comments K-time Rapid (test code = K-time 1.1 min 0.6-2.3 Rapid) [place] [address]-02-21 12:50:00 Test Item Value Reference Range Interpretation Comments Angle Rapid (test code = Angle 78 degrees 64-80 Rapid) [place] [address]-02-21 12:50:00 Test Item Value Reference Range Interpretation Comments Max Amplitude Rapid (test code = Max 65 mm 52-71 Amplitude Rapid) [place] [address]-02-21 12:50:00 Test Item Value Reference Range Interpretation Comments G-value Rapid (test code = G-value 9.2 5.0-11.6 Rapid) [place] 963423-02-21 12:50:00 Test Item Value Reference Range Interpretation Comments Estimated % Lysis Rapid 0.0 See_Comment [Au tomated message] The (test code = Estimated syste m which generated % Lysis Rapid) this result t ransmitted reference range : <=7.5. The reference r christiano was not used to int erpret this result as normal/abnormal . [facility] 12:50:00 Test Item Value Reference Range Interpretation Comments Plt Morph (test code = See Note 1(11/21/22 Plt Morph) 6:50 AM) [facility]shkstmWXENIEEQSQ7095-37-89 12:50:00 Test Item Value Reference Range Interpretation Comments Segs (test code = Segs) 64.1 45.0-75.0 [place] 963423-02-21 12:50:00 Test Item Value Reference Range Interpretation Comments Lymphocytes (test code = Lymphocytes) 22.0 20.0-40.0 [place] 963423-02-21 12:50:00 Test Item Value Reference Range Interpretation Comments Monocytes (test code = Monocytes) 8.3 2.0-12.0 [place] 963423-02-21 12:50:00 Test Item Value Reference Range Interpretation Comments Eosinophils (test code = 4.7 See_Comment [A utomated message] The Eosinophils) system which ge nerated this result tra nsmitted reference range : <=4.0. The reference r christiano was not used to int erpret this result as normal/abnormal . [facility]AgnosojXTWEXEVCTP2153-16-85 12:50:00 Test Item Value Reference Range Interpretation Comments Basophils (test code = 0.9 See_Comment [Aut omated message] The Basophils) system which ge nerated this result tra nsmitted reference range : <=1.0. The reference r christiano was not used to int erpret this result as normal/abnormal . [facility] HospitalZzwynruKVYYFWQCQG5605-25-17 12:50:00 Test Item Value Reference Range Interpretation Comments Neutrophils # (test code = Neutrophils 5.6 1.5-8.1 #) [place] 963423-02-21 12:50:00 Test Item Value Reference Range Interpretation Comments Lymphocytes # (test code = Lymphocytes 1.9 1.0-5.5 #) [place] 963423-02-21 12:50:00 Test Item Value Reference Range Interpretation Comments Monocytes # (test code 0.7 See_Comment [Aut omated message] The = Monocytes #) system which generated this result tra nsmitted reference range : <=0.8. The reference r christiano was not used to int erpret this result as normal/abnormal . [facility] DpsnhfxQKWDIEGVSO3595-34-24 12:50:00 Test Item Value Reference Range Interpretation Comments Eosinophils # (test code 0.4 See_Comment [A utomated message] The = Eosinophils #) system whic h generated this result tra nsmitted reference range : <=0.5. The reference r christiano was not used to int erpret this result as normal/abnormal . [facility]UpegbfwSSHEPXPKQR3235-05-97 12:50:00 Test Item Value Reference Range Interpretation Comments Basophils # (test code 0.1 See_Comment [Aut omated message] The = Basophils #) system which generated this result tra nsmitted reference range : <=0.2. The reference r christiano was not used to int erpret this result as normal/abnormal . [facility]aleKyhfsieBRXQPABFRR4242-45-79 12:50:00 Test Item Value Reference Range Interpretation Comments Stomatocyte (test code = Stomatocyte) slight [facility]aleMosahvtDNCPSNQDHM9432-86-44 12:50:00 Test Item Value Reference Range Interpretation Comments Ethanol Lvl (test code = Ethanol Lvl) no gt [facility] HzqyewmCYOGNLCPAK1439-96-89 12:50:00 Test Item Value Reference Range Interpretation Comments Etoh (%) (test code = Etoh (%)) no gt [facility] W-21 KJWPJRF3709-85-14 12:50:00 Test Item Value Reference Range Interpretation Comments ABO/Rh (test code = ABO/Rh) O POS [facility] W-21 [id number] 12:50:00 Test Item Value Reference Range Interpretation Comments Antibody Scrn (test Negative (11/21/22 6:50 code = Antibody Scrn) AM) [facility] W-21 [id number] 12:50:00 Test Item Value Reference Range Interpretation Comments ABO/Rh (test code = ABO/Rh) O POS [facility] W-21 [id number] 12:50:00 Test Item Value Reference Range Interpretation Comments Antibody Scrn (test Negative (11/21/22 6:50 code = Antibody Scrn) AM) [facility]CARD[facility] WABFGPV2886-77-00 12:50:00 Test Item Value Reference Range Interpretation Comments HS Troponin I (test code = HS Troponin 15 I) [facility] [id number] 12:50:00 Test Item Value Reference Range Interpretation Comments Glucose Lvl (test code = Glucose Lvl) 99 70-99 [facility]2023-02-21 12:50:00 Test Item Value Reference Range Interpretation Comments BUN (test code = BUN) 38 7-22 [facility]2023-02-21 12:50:00 Test Item Value Reference Range Interpretation Comments Creatinine Lvl (test code = Creatinine 2.38 0.50-1.40 Lvl) [facility]2023-02-21 12:50:00 Test Item Value Reference Range Interpretation Comments Sodium Lvl (test code = Sodium Lvl) 140 135-145 [facility]2023-02-21 12:50:00 Test Item Value Reference Range Interpretation Comments Potassium Lvl (test code = Potassium 3.9 3.5-5.1 Lvl) [facility]2023-02-21 12:50:00 Test Item Value Reference Range Interpretation Comments Chloride Lvl (test code = Chloride Lvl) 107 95-109 [facility]2023-02-21 12:50:00 Test Item Value Reference Range Interpretation Comments CO2 (test code = CO2) 27 24-32 [facility]2023-02-21 12:50:00 Test Item Value Reference Range Interpretation Comments Calcium Lvl (test code = Calcium Lvl) 8.1 8.5-10.5 [facility]2023-02-21 12:50:00 Test Item Value Reference Range Interpretation Comments AGAP (test code = AGAP) 9.9 10.0-20.0 [facility]2023-02-21 12:50:00 Test Item Value Reference Range Interpretation Comments eGFR (test code = eGFR) 20 [facility]2023-02-21 12:50:00 Test Item Value Reference Range Interpretation Comments Lactic Acid Lvl (test code = Lactic 0.7 0.5-2.2 Acid Lvl) [facility]2023-02-21 12:50:00 Test Item Value Reference Range Interpretation Comments Total Protein (test code = Total 6.1 6.4-8.4 Protein) [place] [address]-02-21 12:50:00 Test Item Value Reference Range Interpretation Comments Albumin Lvl (test code = Albumin Lvl) 2.9 3.5-5.0 [place] [address]-02-21 12:50:00 Test Item Value Reference Range Interpretation Comments Globulin (test code = Globulin) 3.2 2.7-4.2 [place] [address]-02-21 12:50:00 Test Item Value Reference Range Interpretation Comments A/G Ratio (test code = A/G Ratio) 0.9 1 0.7-1.6 [place] [address]-02-21 12:50:00 Test Item Value Reference Range Interpretation Comments ALT (test code = ALT) 16 See_Comment [Auto mated message] The system which ge nerated this result transmit sheba reference range : <=65. The reference range was not used to interpr et this result as edy l/abnormal. [place] [address]-02-21 12:50:00 Test Item Value Reference Range Interpretation Comments AST (test code = AST) 15 See_Comment [Auto mated message] The system which ge nerated this result transmit sheba reference range : <=37. The reference range was not used to interpr et this result as edy l/abnormal. [place] [address]-02-21 12:50:00 Test Item Value Reference Range Interpretation Comments Alk Phos (test code = Alk Phos) 96 39-136 [place] [address]-02-21 12:50:00 Test Item Value Reference Range Interpretation Comments Bili Total (test code = Bili Total) 0.2 0.2-1.3 [place] [address]-02-21 12:50:00 Test Item Value Reference Range Interpretation Comments Bili Direct (test code no gt See_Comment [Aut omated message] The = Bili Direct) system which generated this result tra nsmitted reference range : <=0.3. The reference r christiano was not used to int erpret this result as edy l/abnormal. [facility] CenterSAMHI Hotels [id number] 12:50:00 Test Item Value Reference Range Interpretation Comments Bili Indirect Unable to See_Comment [Automated (test code = Bili Calculate message] T he system Indirect) which generated this result transmitted reference range : <=1.0. The reference range was not used to interpret this result as normal/abnormal . [facility] TexasBshdodxQLYOJLZFG0207-70-29 12:50:00 Test Item Value Reference Range Interpretation Comments Ethanol Lvl (test code = Ethanol Lvl) no gt [facility] TexasKlyqbqmICNQCYDMR2638-90-37 12:50:00 Test Item Value Reference Range Interpretation Comments Etoh (%) (test code = Etoh (%)) no gt [facility] TexasMbaxmwlTFNPOBXMN8633-91-81 12:50:00 Test Item Value Reference Range Interpretation Comments Lactic Acid Lvl (test code = Lactic 0.7 0.5-2.2 Acid Lvl) [facility] TexasUqqqviyTNQFIBCPP7919-70-67 12:50:00 Test Item Value Reference Range Interpretation Comments Total Protein (test code = Total 6.1 6.4-8.4 Protein) [facility] TexasMeyvkojAACSTDTOT0769-55-30 12:50:00 Test Item Value Reference Range Interpretation Comments Albumin Lvl (test code = Albumin Lvl) 2.9 3.5-5.0 [place] [address]-02-21 12:50:00 Test Item Value Reference Range Interpretation Comments Globulin (test code = Globulin) 3.2 2.7-4.2 [place] 922233-02-21 12:50:00 Test Item Value Reference Range Interpretation Comments A/G Ratio (test code = A/G Ratio) 0.9 1 0.7-1.6 [place] 922233-02-21 12:50:00 Test Item Value Reference Range Interpretation Comments ALT (test code = ALT) 16 See_Comment [Auto mated message] The system which ge nerated this result transmit sheba reference range : <=65. The reference range was not used to interpr et this result as edy l/abnormal. [facility] TexasUgdnnnpIQQMMRHJF2062-62-88 12:50:00 Test Item Value Reference Range Interpretation Comments AST (test code = AST) 15 See_Comment [Auto mated message] The system which ge nerated this result transmit sheba reference range : <=37. The reference range was not used to interpr et this result as edy l/abnormal. [facility] CenterTmudcudNLVQWAVYW4205-10-61 12:50:00 Test Item Value Reference Range Interpretation Comments Alk Phos (test code = Alk Phos) 96 39-136 [facility] TexasSdnaenbVARSASBIJ4279-41-81 12:50:00 Test Item Value Reference Range Interpretation Comments Bili Total (test code = Bili Total) 0.2 0.2-1.3 [facility] TexasTushzulZUXWSBOVG6050-21-59 12:50:00 Test Item Value Reference Range Interpretation Comments Bili Direct (test code no gt See_Comment [Aut omated message] The = Bili Direct) system which generated this result tra nsmitted reference range : <=0.3. The reference r christiano was not used to int erpret this result as edy l/abnormal. [facility] TexasHxopxdiHKWGENRLI5129-33-24 12:50:00 Test Item Value Reference Range Interpretation Comments Bili Indirect Unable to See_Comment [Automated (test code = Bili Calculate message] T he system Indirect) which generated this result transmitted reference range : <=1.0. The reference range was not used to interpret this result as normal/abnormal . [facility] TexasRfrmpjcOROQTVWTW0568-88-21 12:50:00 Test Item Value Reference Range Interpretation Comments HS Troponin I (test code = HS Troponin 15 I) [facility] TexasBokzgpcGKBKPSHRG9680-59-26 12:50:00 Test Item Value Reference Range Interpretation Comments pH Justin (test code = pH Justin) 7.35 1 7.28-7.42 [facility] TexasAjyokxkTOPLEUHSL8961-86-65 12:50:00 Test Item Value Reference Range Interpretation Comments pCO2 Justin (test code = pCO2 Justin) 55 38-52 [facility] TexasUdliifpIWWKVZUPL6107-33-93 12:50:00 Test Item Value Reference Range Interpretation Comments pO2 Justin (test code = pO2 Justin) 43 20-49 [place] 922233-02-21 12:50:00 Test Item Value Reference Range Interpretation Comments HCO3 Justin (test code = HCO3 Justin) 30 22-26 [facility] TexasUqevweoZQFGXHRZI2827-88-94 12:50:00 Test Item Value Reference Range Interpretation Comments BE Justin (test code = BE Justin) 3 -2-2 [facility] TexasTfplfolCZTMIHGZY0314-05-81 12:50:00 Test Item Value Reference Range Interpretation Comments O2 Sat Justin (calc) (test code = O2 Sat 75.9 40.0-70.0 Justin (calc)) [facility] TexasUbnnktcEDMNMLSRM6598-39-55 12:50:00 Test Item Value Reference Range Interpretation Comments Temp Justin (test code = Temp Justin) 37.0 [place] 963423-02-21 12:50:00 Test Item Value Reference Range Interpretation Comments ACT (TEG) Rapid (test code = ACT (TEG) 113 s 86-118 Rapid) [place] 963423-02-21 12:50:00 Test Item Value Reference Range Interpretation Comments Split Point Rapid (test code = Split 0.6 min Point Rapid) [facility]HfflwlpPMJALFDAME8986-33-06 12:50:00 Test Item Value Reference Range Interpretation Comments R-time Rapid (test code = R-time 0.7 min 0.4-0.7 Rapid) [place] [address]-02-21 12:50:00 Test Item Value Reference Range Interpretation Comments K-time Rapid (test code = K-time 1.1 min 0.6-2.3 Rapid) [place] 963423-02-21 12:50:00 Test Item Value Reference Range Interpretation Comments Angle Rapid (test code = Angle 78 degrees 64-80 Rapid) [facility] HospitalZauaphlXMCEKOUYBR3016-55-32 12:50:00 Test Item Value Reference Range Interpretation Comments Max Amplitude Rapid (test code = Max 65 mm 52-71 Amplitude Rapid) [place] 963423-02-21 12:50:00 Test Item Value Reference Range Interpretation Comments G-value Rapid (test code = G-value 9.2 5.0-11.6 Rapid) [place] 963423-02-21 12:50:00 Test Item Value Reference Range Interpretation Comments Estimated % Lysis Rapid 0.0 See_Comment [Au tomated message] The (test code = Estimated syste m which generated % Lysis Rapid) this result t ransmitted reference range : <=7.5. The reference r christiano was not used to int erpret this result as normal/abnormal . [place] 963423-02-21 12:50:00 Test Item Value Reference Range Interpretation Comments Plt Morph (test code = See Note 1(11/21/22 Plt Morph) 6:50 AM) [place] 963423-02-21 12:50:00 Test Item Value Reference Range Interpretation Comments Stomatocyte (test code = Stomatocyte) slight [facility] HospitalAeyrrvvBEGAAWXFDH1508-02-15 12:50:00 Test Item Value Reference Range Interpretation Comments WBC X 10x3 (test code = WBC X 10x3) 8.7 3.7-10.4 [place] [address]-02-21 12:50:00 Test Item Value Reference Range Interpretation Comments RBC X 10x6 (test code = RBC X 10x6) 3.56 4.20-5.40 [place] 963423-02-21 12:50:00 Test Item Value Reference Range Interpretation Comments Hgb (test code = Hgb) 10.4 12.0-16.0 [place] [address]-02-21 12:50:00 Test Item Value Reference Range Interpretation Comments Hct (test code = Hct) 32.3 36.0-48.0 [place] 963423-02-21 12:50:00 Test Item Value Reference Range Interpretation Comments MCV (test code = MCV) 90.8 80.0-98.0 [place] 963423-02-21 12:50:00 Test Item Value Reference Range Interpretation Comments MCH (test code = MCH) 29.3 pg 27.0-31.0 [place] 963423-02-21 12:50:00 Test Item Value Reference Range Interpretation Comments MCHC (test code = MCHC) 32.2 32.0-36.0 [place] 963423-02-21 12:50:00 Test Item Value Reference Range Interpretation Comments RDW (test code = RDW) 13.7 11.5-14.5 [place] 963423-02-21 12:50:00 Test Item Value Reference Range Interpretation Comments Platelet (test code = Platelet) 137 133-450 [place] 963423-02-21 12:50:00 Test Item Value Reference Range Interpretation Comments MPV (test code = MPV) 7.9 7.4-10.4 [place] [address]-02-21 12:50:00 Test Item Value Reference Range Interpretation Comments ACT (TEG) Rapid (test code = ACT (TEG) 113 s 86-118 Rapid) [place] 963423-02-21 12:50:00 Test Item Value Reference Range Interpretation Comments Split Point Rapid (test code = Split 0.6 min Point Rapid) [place] [address]-02-21 12:50:00 Test Item Value Reference Range Interpretation Comments R-time Rapid (test code = R-time 0.7 min 0.4-0.7 Rapid) [place] 963423-02-21 12:50:00 Test Item Value Reference Range Interpretation Comments K-time Rapid (test code = K-time 1.1 min 0.6-2.3 Rapid) [place] [address]-02-21 12:50:00 Test Item Value Reference Range Interpretation Comments Angle Rapid (test code = Angle 78 degrees 64-80 Rapid) [place] [address]-02-21 12:50:00 Test Item Value Reference Range Interpretation Comments Max Amplitude Rapid (test code = Max 65 mm 52-71 Amplitude Rapid) [place] [address]-02-21 12:50:00 Test Item Value Reference Range Interpretation Comments G-value Rapid (test code = G-value 9.2 5.0-11.6 Rapid) [place] [address]-02-21 12:50:00 Test Item Value Reference Range Interpretation Comments Estimated % Lysis Rapid 0.0 See_Comment [Au tomated message] The (test code = Estimated syste m which generated % Lysis Rapid) this result t ransmitted reference range : <=7.5. The reference r christiano was not used to int erpret this result as normal/abnormal . [place] 963423-02-21 12:50:00 Test Item Value Reference Range Interpretation Comments Plt Morph (test code = See Note 1(11/21/22 Plt Morph) 6:50 AM) [place] [address]-02-21 12:50:00 Test Item Value Reference Range Interpretation Comments Segs (test code = Segs) 64.1 45.0-75.0 [place] [address]-02-21 12:50:00 Test Item Value Reference Range Interpretation Comments Lymphocytes (test code = Lymphocytes) 22.0 20.0-40.0 [place] [address]-02-21 12:50:00 Test Item Value Reference Range Interpretation Comments Monocytes (test code = Monocytes) 8.3 2.0-12.0 [place] [address]-02-21 12:50:00 Test Item Value Reference Range Interpretation Comments Eosinophils (test code = 4.7 See_Comment [A utomated message] The Eosinophils) system which ge nerated this result tra nsmitted reference range : <=4.0. The reference r christiano was not used to int erpret this result as normal/abnormal . [facility] HospitalFmtutpuELGXFKXIKB6730-60-67 12:50:00 Test Item Value Reference Range Interpretation Comments Basophils (test code = 0.9 See_Comment [Aut omated message] The Basophils) system which ge nerated this result tra nsmitted reference range : <=1.0. The reference r christiano was not used to int erpret this result as normal/abnormal . [facility] HospitalJzuhizkTCURTRBZDG9506-02-49 12:50:00 Test Item Value Reference Range Interpretation Comments Neutrophils # (test code = Neutrophils 5.6 1.5-8.1 #) [facility] HospitalAcakuucQNBCPLJWOP3873-46-18 12:50:00 Test Item Value Reference Range Interpretation Comments Lymphocytes # (test code = Lymphocytes 1.9 1.0-5.5 #) [place] 963423-02-21 12:50:00 Test Item Value Reference Range Interpretation Comments Monocytes # (test code 0.7 See_Comment [Aut omated message] The = Monocytes #) system which generated this result tra nsmitted reference range : <=0.8. The reference r christiano was not used to int erpret this result as normal/abnormal . [facility] HospitalYyumejbYMGBPFPOIT0714-76-52 12:50:00 Test Item Value Reference Range Interpretation Comments Eosinophils # (test code 0.4 See_Comment [A utomated message] The = Eosinophils #) system [facility] generated this result tra nsmitted reference range : <=0.5. The reference r christiano was not used to int erpret this result as normal/abnormal . [facility] HospitalJdivzpsIFETQXGZJE9339-96-89 12:50:00 Test Item Value Reference Range Interpretation Comments Basophils # (test code 0.1 See_Comment [Aut omated message] The = Basophils #) system which generated this result tra nsmitted reference range : <=0.2. The reference r christiano was not used to int erpret this result as normal/abnormal . [place] 963423-02-21 12:50:00 Test Item Value Reference Range Interpretation Comments Stomatocyte (test code = Stomatocyte) slight [facility] CenterXsqbckjUJTPXHUIJS2471-90-05 12:50:00 Test Item Value Reference Range Interpretation Comments Ethanol Lvl (test code = Ethanol Lvl) no gt [facility] JnymnrtRCJRAMKGBO5240-55-43 12:50:00 Test Item Value Reference Range Interpretation Comments Etoh (%) (test code = Etoh (%)) no gt [facility] W-21 WWMMKAX4143-18-11 12:50:00 Test Item Value Reference Range Interpretation Comments ABO/Rh (test code = ABO/Rh) O POS [facility] W-21 [id number] 12:50:00 Test Item Value Reference Range Interpretation Comments Antibody Scrn (test Negative (11/21/22 6:50 code = Antibody Scrn) AM) [facility] W-21 [id number] 12:50:00 Test Item Value Reference Range Interpretation Comments ABO/Rh (test code = ABO/Rh) O POS [facility] W-21 [id number] 12:50:00 Test Item Value Reference Range Interpretation Comments Antibody Scrn (test Negative (11/21/22 6:50 code = Antibody Scrn) AM) [facility] [employer]phe[employer]CARDIAC [id number] 12:50:00 Test Item Value Reference Range Interpretation Comments HS Troponin I (test code = HS Troponin 15 I) [facility] [employer] [id number] 12:50:00 Test Item Value Reference Range Interpretation Comments Glucose Lvl (test code = Glucose Lvl) 99 70-99 [facility] barcoo2023-02-21 12:50:00 Test Item Value Reference Range Interpretation Comments BUN (test code = BUN) 38 7-22 [facility] barcoo2023-02-21 12:50:00 Test Item Value Reference Range Interpretation Comments Creatinine Lvl (test code = Creatinine 2.38 0.50-1.40 Lvl) [facility] barcoo2023-02-21 12:50:00 Test Item Value Reference Range Interpretation Comments Sodium Lvl (test code = Sodium Lvl) 140 135-145 [facility] barcoo2023-02-21 12:50:00 Test Item Value Reference Range Interpretation Comments Potassium Lvl (test code = Potassium 3.9 3.5-5.1 Lvl) [facility] barcoo2023-02-21 12:50:00 Test Item Value Reference Range Interpretation Comments Chloride Lvl (test code = Chloride Lvl) 107 95-109 [place] 457353-02-21 12:50:00 Test Item Value Reference Range Interpretation Comments CO2 (test code = CO2) 27 24-32 [place] [address]-02-21 12:50:00 Test Item Value Reference Range Interpretation Comments Calcium Lvl (test code = Calcium Lvl) 8.1 8.5-10.5 [place] 457353-02-21 12:50:00 Test Item Value Reference Range Interpretation Comments AGAP (test code = AGAP) 9.9 10.0-20.0 [place] 457353-02-21 12:50:00 Test Item Value Reference Range Interpretation Comments eGFR (test code = eGFR) 20 [place] 457353-02-21 12:50:00 Test Item Value Reference Range Interpretation Comments Lactic Acid Lvl (test code = Lactic 0.7 0.5-2.2 Acid Lvl) [place] [address]-02-21 12:50:00 Test Item Value Reference Range Interpretation Comments Total Protein (test code = Total 6.1 6.4-8.4 Protein) [place] 457353-02-21 12:50:00 Test Item Value Reference Range Interpretation Comments Albumin Lvl (test code = Albumin Lvl) 2.9 3.5-5.0 [place] 457353-02-21 12:50:00 Test Item Value Reference Range Interpretation Comments Globulin (test code = Globulin) 3.2 2.7-4.2 [place] [address]-02-21 12:50:00 Test Item Value Reference Range Interpretation Comments A/G Ratio (test code = A/G Ratio) 0.9 1 0.7-1.6 [place] [address]-02-21 12:50:00 Test Item Value Reference Range Interpretation Comments ALT (test code = ALT) 16 See_Comment [Auto mated message] The system which ge nerated this result transmit sheba reference range : <=65. The reference range was not used to interpr et this result as edy l/abnormal. [place] 457353-02-21 12:50:00 Test Item Value Reference Range Interpretation Comments AST (test code = AST) 15 See_Comment [Auto mated message] The system which ge nerated this result transmit sheba reference range : <=37. The reference range was not used to interpr et this result as edy l/abnormal. [facility] [employer] [id number] 12:50:00 Test Item Value Reference Range Interpretation Comments Alk Phos (test code = Alk Phos) 96 39-136 [facility] [id number] 12:50:00 Test Item Value Reference Range Interpretation Comments Bili Total (test code = Bili Total) 0.2 0.2-1.3 [facility] [id number] 12:50:00 Test Item Value Reference Range Interpretation Comments Bili Direct (test code no gt See_Comment [Aut omated message] The = Bili Direct) system which generated this result tra nsmitted reference range : <=0.3. The reference r christiano was not used to int erpret this result as edy l/abnormal. [facility] [id number] 12:50:00 Test Item Value Reference Range Interpretation Comments Bili Indirect Unable to See_Comment [Automated (test code = Bili Calculate message] T he system Indirect) which generated this result transmitted reference range : <=1.0. The reference range was not used to interpret this result as normal/abnormal . [facility]aleSqbuzpgJDYRJQACG3270-30-24 12:50:00 Test Item Value Reference Range Interpretation Comments Ethanol Lvl (test code = Ethanol Lvl) no gt [facility] CenterBdmspelPYALYIHJD2578-73-18 12:50:00 Test Item Value Reference Range Interpretation Comments Etoh (%) (test code = Etoh (%)) no gt [facility]aleBaenltlTJRAIUJQM0054-12-57 12:50:00 Test Item Value Reference Range Interpretation Comments Lactic Acid Lvl (test code = Lactic 0.7 0.5-2.2 Acid Lvl) [place] 922233-02-21 12:50:00 Test Item Value Reference Range Interpretation Comments Total Protein (test code = Total 6.1 6.4-8.4 Protein) [place] 922233-02-21 12:50:00 Test Item Value Reference Range Interpretation Comments Albumin Lvl (test code = Albumin Lvl) 2.9 3.5-5.0 [facility] CenterQaywquzSUOUGUJKI7376-96-96 12:50:00 Test Item Value Reference Range Interpretation Comments Globulin (test code = Globulin) 3.2 2.7-4.2 [facility]aleOpjtbsbZLNRCCXGP2505-74-38 12:50:00 Test Item Value Reference Range Interpretation Comments A/G Ratio (test code = A/G Ratio) 0.9 1 0.7-1.6 [facility]aleXgcdysgGYFZHDIGS5365-53-66 12:50:00 Test Item Value Reference Range Interpretation Comments ALT (test code = ALT) 16 See_Comment [Auto mated message] The system which ge nerated this result transmit sheba reference range : <=65. The reference range was not used to interpr et this result as edy l/abnormal. [facility] KmyqgqbVNLDLRXCN1248-12-43 12:50:00 Test Item Value Reference Range Interpretation Comments AST (test code = AST) 15 See_Comment [Auto mated message] The system which ge nerated this result transmit sheba reference range : <=37. The reference range was not used to interpr et this result as edy l/abnormal. [facility] BglbywnUVJLMXHXL7419-45-08 12:50:00 Test Item Value Reference Range Interpretation Comments Alk Phos (test code = Alk Phos) 96 39-136 [facility]aleHaetplpKORRUKXDB7537-46-64 12:50:00 Test Item Value Reference Range Interpretation Comments Bili Total (test code = Bili Total) 0.2 0.2-1.3 [facility]aleCngczdkJMUXVZPGY4463-80-70 12:50:00 Test Item Value Reference Range Interpretation Comments Bili Direct (test code no gt See_Comment [Aut omated message] The = Bili Direct) system which generated this result tra nsmitted reference range : <=0.3. The reference r christiano was not used to int erpret this result as edy l/abnormal. [facility] ZitlaseGUWZDHMJG7277-56-25 12:50:00 Test Item Value Reference Range Interpretation Comments Bili Indirect Unable to See_Comment [Automated (test code = Bili Calculate message] T he system Indirect) which generated this result transmitted reference range : <=1.0. The reference range was not used to interpret this result as normal/abnormal . [facility] JgfykusAXCALEXPK5223-61-73 12:50:00 Test Item Value Reference Range Interpretation Comments HS Troponin I (test code = HS Troponin 15 I) [facility]FswxljdYHHCDKWAW1887-75-70 12:50:00 Test Item Value Reference Range Interpretation Comments pH Justin (test code = pH Justin) 7.35 1 7.28-7.42 [place] 922233-02-21 12:50:00 Test Item Value Reference Range Interpretation Comments pCO2 Justin (test code = pCO2 Justin) 55 38-52 [place] 922233-02-21 12:50:00 Test Item Value Reference Range Interpretation Comments pO2 Justin (test code = pO2 Justin) 43 20-49 [place] 922233-02-21 12:50:00 Test Item Value Reference Range Interpretation Comments HCO3 Justin (test code = HCO3 Justin) 30 22-26 [place] [address]-02-21 12:50:00 Test Item Value Reference Range Interpretation Comments BE Justin (test code = BE Justin) 3 -2-2 [place] 922233-02-21 12:50:00 Test Item Value Reference Range Interpretation Comments O2 Sat Justin (calc) (test code = O2 Sat 75.9 40.0-70.0 Justin (calc)) [place] 922233-02-21 12:50:00 Test Item Value Reference Range Interpretation Comments Temp Justin (test code = Temp Justin) 37.0 [place] 963423-02-21 12:50:00 Test Item Value Reference Range Interpretation Comments ACT (TEG) Rapid (test code = ACT (TEG) 113 s 86-118 Rapid) [place] 963423-02-21 12:50:00 Test Item Value Reference Range Interpretation Comments Split Point Rapid (test code = Split 0.6 min Point Rapid) [place] 963423-02-21 12:50:00 Test Item Value Reference Range Interpretation Comments R-time Rapid (test code = R-time 0.7 min 0.4-0.7 Rapid) [place] 963423-02-21 12:50:00 Test Item Value Reference Range Interpretation Comments K-time Rapid (test code = K-time 1.1 min 0.6-2.3 Rapid) [place] 963423-02-21 12:50:00 Test Item Value Reference Range Interpretation Comments Angle Rapid (test code = Angle 78 degrees 64-80 Rapid) [place] 963423-02-21 12:50:00 Test Item Value Reference Range Interpretation Comments Max Amplitude Rapid (test code = Max 65 mm 52-71 Amplitude Rapid) [place] [address]-02-21 12:50:00 Test Item Value Reference Range Interpretation Comments G-value Rapid (test code = G-value 9.2 5.0-11.6 Rapid) [place] 963423-02-21 12:50:00 Test Item Value Reference Range Interpretation Comments Estimated % Lysis Rapid 0.0 See_Comment [Au tomated message] The (test code = Estimated syste m which generated % Lysis Rapid) this result t ransmitted reference range : <=7.5. The reference r christiano was not used to int erpret this result as normal/abnormal . [place] 963423-02-21 12:50:00 Test Item Value Reference Range Interpretation Comments Plt Morph (test code = See Note 1(11/21/22 Plt Morph) 6:50 AM) [place] [address]-02-21 12:50:00 Test Item Value Reference Range Interpretation Comments Stomatocyte (test code = Stomatocyte) slight [place] [address]-02-21 12:50:00 Test Item Value Reference Range Interpretation Comments WBC X 10x3 (test code = WBC X 10x3) 8.7 3.7-10.4 [place] [address]-02-21 12:50:00 Test Item Value Reference Range Interpretation Comments RBC X 10x6 (test code = RBC X 10x6) 3.56 4.20-5.40 [place] [address]-02-21 12:50:00 Test Item Value Reference Range Interpretation Comments Hgb (test code = Hgb) 10.4 12.0-16.0 [place] [address]-02-21 12:50:00 Test Item Value Reference Range Interpretation Comments Hct (test code = Hct) 32.3 36.0-48.0 [place] [address]-02-21 12:50:00 Test Item Value Reference Range Interpretation Comments MCV (test code = MCV) 90.8 80.0-98.0 [place] [address]-02-21 12:50:00 Test Item Value Reference Range Interpretation Comments MCH (test code = MCH) 29.3 pg 27.0-31.0 [place] [address]-02-21 12:50:00 Test Item Value Reference Range Interpretation Comments MCHC (test code = MCHC) 32.2 32.0-36.0 [place] [address]-02-21 12:50:00 Test Item Value Reference Range Interpretation Comments RDW (test code = RDW) 13.7 11.5-14.5 [place] [address]-02-21 12:50:00 Test Item Value Reference Range Interpretation Comments Platelet (test code = Platelet) 137 133-450 [place] 963423-02-21 12:50:00 Test Item Value Reference Range Interpretation Comments MPV (test code = MPV) 7.9 7.4-10.4 [place] [address]-02-21 12:50:00 Test Item Value Reference Range Interpretation Comments ACT (TEG) Rapid (test code = ACT (TEG) 113 s 86-118 Rapid) [place] 963423-02-21 12:50:00 Test Item Value Reference Range Interpretation Comments Split Point Rapid (test code = Split 0.6 min Point Rapid) [place] [address]-02-21 12:50:00 Test Item Value Reference Range Interpretation Comments R-time Rapid (test code = R-time 0.7 min 0.4-0.7 Rapid) [place] [address]-02-21 12:50:00 Test Item Value Reference Range Interpretation Comments K-time Rapid (test code = K-time 1.1 min 0.6-2.3 Rapid) [place] [address]-02-21 12:50:00 Test Item Value Reference Range Interpretation Comments Angle Rapid (test code = Angle 78 degrees 64-80 Rapid) [place] [address]-02-21 12:50:00 Test Item Value Reference Range Interpretation Comments Max Amplitude Rapid (test code = Max 65 mm 52-71 Amplitude Rapid) [place] [address]-02-21 12:50:00 Test Item Value Reference Range Interpretation Comments G-value Rapid (test code = G-value 9.2 5.0-11.6 Rapid) [place] [address]-02-21 12:50:00 Test Item Value Reference Range Interpretation Comments Estimated % Lysis Rapid 0.0 See_Comment [Au tomated message] The (test code = Estimated syste m which generated % Lysis Rapid) this result t ransmitted reference range : <=7.5. The reference r christiano was not used to int erpret this result as normal/abnormal . [facility]niZTYCEDOXWQ5051[facility]-76 12:50:00 Test Item Value Reference Range Interpretation Comments Plt Morph (test code = See Note 1(11/21/22 Plt Morph) 6:50 AM) [place] 963423-02-21 12:50:00 Test Item Value Reference Range Interpretation Comments Segs (test code = Segs) 64.1 45.0-75.0 [place] 963423-02-21 12:50:00 Test Item Value Reference Range Interpretation Comments Lymphocytes (test code = Lymphocytes) 22.0 20.0-40.0 [place] 963423-02-21 12:50:00 Test Item Value Reference Range Interpretation Comments Monocytes (test code = Monocytes) 8.3 2.0-12.0 [place] 963423-02-21 12:50:00 Test Item Value Reference Range Interpretation Comments Eosinophils (test code = 4.7 See_Comment [A utomated message] The Eosinophils) system which ge nerated this result tra nsmitted reference range : <=4.0. The reference r christiano was not used to int erpret this result as normal/abnormal . [facility]AyrezlrBOILJYMZOV6095-70-28 12:50:00 Test Item Value Reference Range Interpretation Comments Basophils (test code = 0.9 See_Comment [Aut omated message] The Basophils) system which ge nerated this result tra nsmitted reference range : <=1.0. The reference r christiano was not used to int erpret this result as normal/abnormal . [facility] HospitalGmwoyczELOSEGUVND8196-03-77 12:50:00 Test Item Value Reference Range Interpretation Comments Neutrophils # (test code = Neutrophils 5.6 1.5-8.1 #) [place] 963423-02-21 12:50:00 Test Item Value Reference Range Interpretation Comments Lymphocytes # (test code = Lymphocytes 1.9 1.0-5.5 #) [place] 963423-02-21 12:50:00 Test Item Value Reference Range Interpretation Comments Monocytes # (test code 0.7 See_Comment [Aut omated message] The = Monocytes #) system which generated this result tra nsmitted reference range : <=0.8. The reference r christiano was not used to int erpret this result as normal/abnormal . [facility] VwmhklhUWZTHFUGDC0173-84-18 12:50:00 Test Item Value Reference Range Interpretation Comments Eosinophils # (test code 0.4 See_Comment [A utomated message] The = Eosinophils #) system whic h generated this result tra nsmitted reference range : <=0.5. The reference r christiano was not used to int erpret this result as normal/abnormal . [facility] BmocrdoYYEWNXYRKJ7129-25-41 12:50:00 Test Item Value Reference Range Interpretation Comments Basophils # (test code 0.1 See_Comment [Aut omated message] The = Basophils #) system which generated this result tra nsmitted reference range : <=0.2. The reference r christiano was not used to int erpret this result as normal/abnormal . [facility] BgxbbtcQBTTZFGBIP2493-90-64 12:50:00 Test Item Value Reference Range Interpretation Comments Stomatocyte (test code = Stomatocyte) slight [facility] FnkzqxxATLYVKHLSK9475-40-42 12:50:00 Test Item Value Reference Range Interpretation Comments Ethanol Lvl (test code = Ethanol Lvl) no gt [facility] YdkwlxnZZWKJHEAZM5928-99-72 12:50:00 Test Item Value Reference Range Interpretation Comments Etoh (%) (test code = Etoh (%)) no gt [employer] [employer] [id number] 12:50:00 Test Item Value Reference Range Interpretation Comments ABO/Rh (test code = ABO/Rh) O POS [employer] [employer] [id number] 12:50:00 Test Item Value Reference Range Interpretation Comments Antibody Scrn (test Negative (11/21/22 6:50 code = Antibody Scrn) AM) [facility] W-21 LEOWFET5977-09-93 12:50:00 Test Item Value Reference Range Interpretation Comments ABO/Rh (test code = ABO/Rh) O POS [place] [employer] [id number] 12:50:00 Test Item Value Reference Range Interpretation Comments Antibody Scrn (test Negative (11/21/22 6:50 code = Antibody Scrn) AM) [employer] EPMYDCU2703-32-58 12:50:00 Test Item Value Reference Range Interpretation Comments HS Troponin I (test code = HS Troponin 15 I) [facility] [id number] 12:50:00 Test Item Value Reference Range Interpretation Comments Glucose Lvl (test code = Glucose Lvl) 99 70-99 [facility]2023-02-21 12:50:00 Test Item Value Reference Range Interpretation Comments BUN (test code = BUN) 38 7-22 [facility]2023-02-21 12:50:00 Test Item Value Reference Range Interpretation Comments Creatinine Lvl (test code = Creatinine 2.38 0.50-1.40 Lvl) [facility] [id number] 12:50:00 Test Item Value Reference Range Interpretation Comments Sodium Lvl (test code = Sodium Lvl) 140 135-145 [facility] [id number] 12:50:00 Test Item Value Reference Range Interpretation Comments Potassium Lvl (test code = Potassium 3.9 3.5-5.1 Lvl) [facility] [id number] 12:50:00 Test Item Value Reference Range Interpretation Comments Chloride Lvl (test code = Chloride Lvl) 107 95-109 [facility] [id number] 12:50:00 Test Item Value Reference Range Interpretation Comments CO2 (test code = CO2) 27 24-32 [facility]2023-02-21 12:50:00 Test Item Value Reference Range Interpretation Comments Calcium Lvl (test code = Calcium Lvl) 8.1 8.5-10.5 [facility]2023-02-21 12:50:00 Test Item Value Reference Range Interpretation Comments AGAP (test code = AGAP) 9.9 10.0-20.0 [facility]2023-02-21 12:50:00 Test Item Value Reference Range Interpretation Comments eGFR (test code = eGFR) 20 [facility]2023-02-21 12:50:00 Test Item Value Reference Range Interpretation Comments Lactic Acid Lvl (test code = Lactic 0.7 0.5-2.2 Acid Lvl) [facility]2023-02-21 12:50:00 Test Item Value Reference Range Interpretation Comments Total Protein (test code = Total 6.1 6.4-8.4 Protein) [address]02-21 12:50:00 Test Item Value Reference Range Interpretation Comments Albumin Lvl (test code = Albumin Lvl) 2.9 3.5-5.0 [place] [address]-02-21 12:50:00 Test Item Value Reference Range Interpretation Comments Globulin (test code = Globulin) 3.2 2.7-4.2 [place] [address]-02-21 12:50:00 Test Item Value Reference Range Interpretation Comments A/G Ratio (test code = A/G Ratio) 0.9 1 0.7-1.6 [address]02-21 12:50:00 Test Item Value Reference Range Interpretation Comments ALT (test code = ALT) 16 See_Comment [Auto mated message] The system which ge nerated this result transmit sheba reference range : <=65. The reference range was not used to interpr et this result as edy l/abnormal. [facility]SAM[facility] [id number] 12:50:00 Test Item Value Reference Range Interpretation Comments AST (test code = AST) 15 See_Comment [Auto mated message] The system which ge nerated this result transmit sheba reference range : <=37. The reference range was not used to interpr et this result as edy l/abnormal. [place] [address]-02-21 12:50:00 Test Item Value Reference Range Interpretation Comments Alk Phos (test code = Alk Phos) 96 39-136 [facility] [id number] 12:50:00 Test Item Value Reference Range Interpretation Comments Bili Total (test code = Bili Total) 0.2 0.2-1.3 [place] [address]-02-21 12:50:00 Test Item Value Reference Range Interpretation Comments Bili Direct (test code no gt See_Comment [Aut omated message] The = Bili Direct) system which generated this result tra nsmitted reference range : <=0.3. The reference r christiano was not used to int erpret this result as edy l/abnormal. [facility] [id number] 12:50:00 Test Item Value Reference Range Interpretation Comments Bili Indirect Unable to See_Comment [Automated (test code = Bili Calculate message] T he system Indirect) which generated this result transmitted reference range : <=1.0. The reference range was not used to interpret this result as normal/abnormal . [facility] TexasKgvmvmlWBZGVSEOV4463-27-72 12:50:00 Test Item Value Reference Range Interpretation Comments Ethanol Lvl (test code = Ethanol Lvl) no gt [facility] TexasZdldmmoYDLZNXCML6887-54-95 12:50:00 Test Item Value Reference Range Interpretation Comments Etoh (%) (test code = Etoh (%)) no gt [facility] TexasHlrhqnvXZMBUJRPN9171-64-19 12:50:00 Test Item Value Reference Range Interpretation Comments Lactic Acid Lvl (test code = Lactic 0.7 0.5-2.2 Acid Lvl) [place] 922233-02-21 12:50:00 Test Item Value Reference Range Interpretation Comments Total Protein (test code = Total 6.1 6.4-8.4 Protein) [facility] TexasPkufwztIRMVVQGYT9115-95-27 12:50:00 Test Item Value Reference Range Interpretation Comments Albumin Lvl (test code = Albumin Lvl) 2.9 3.5-5.0 [place] 922233-02-21 12:50:00 Test Item Value Reference Range Interpretation Comments Globulin (test code = Globulin) 3.2 2.7-4.2 [place] [address]-02-21 12:50:00 Test Item Value Reference Range Interpretation Comments A/G Ratio (test code = A/G Ratio) 0.9 1 0.7-1.6 [place] 922233-02-21 12:50:00 Test Item Value Reference Range Interpretation Comments ALT (test code = ALT) 16 See_Comment [Auto mated message] The system which ge nerated this result transmit sheba reference range : <=65. The reference range was not used to interpr et this result as edy l/abnormal. [facility]aleJkcstvqUTJQTVUAM5224-02-99 12:50:00 Test Item Value Reference Range Interpretation Comments AST (test code = AST) 15 See_Comment [Auto mated message] The system which ge nerated this result transmit sheba reference range : <=37. The reference range was not used to interpr et this result as edy l/abnormal. [facility]valeScaseptSCXZYTRGR5426-41-99 12:50:00 Test Item Value Reference Range Interpretation Comments Alk Phos (test code = Alk Phos) 96 39-136 [facility] TexasSvvufpwNTVJXBGCI0857-64-55 12:50:00 Test Item Value Reference Range Interpretation Comments Bili Total (test code = Bili Total) 0.2 0.2-1.3 [place] 922233-02-21 12:50:00 Test Item Value Reference Range Interpretation Comments Bili Direct (test code no gt See_Comment [Aut omated message] The = Bili Direct) system which generated this result tra nsmitted reference range : <=0.3. The reference r christiano was not used to int erpret this result as edy l/abnormal. [facility] TexasXzzrpgrZMJEUOYNK2170-32-96 12:50:00 Test Item Value Reference Range Interpretation Comments Bili Indirect Unable to See_Comment [Automated (test code = Bili Calculate message] T he system Indirect) which generated this result transmitted reference range : <=1.0. The reference range was not used to interpret this result as normal/abnormal . [facility] TexasEwlgmfgJYQJRDHPO3308-58-01 12:50:00 Test Item Value Reference Range Interpretation Comments HS Troponin I (test code = HS Troponin 15 I) [facility] TexasYvtftwmPAKAHKFZD8727-07-96 12:50:00 Test Item Value Reference Range Interpretation Comments pH Justin (test code = pH Justin) 7.35 1 7.28-7.42 [facility]CbcvtneZFZTFVNUJ1603-59-76 12:50:00 Test Item Value Reference Range Interpretation Comments pCO2 Justin (test code = pCO2 Justin) 55 38-52 [facility] TexasEzfmuubUJQYDYRYE0887-96-75 12:50:00 Test Item Value Reference Range Interpretation Comments pO2 Justin (test code = pO2 Justin) 43 20-49 [place] 922233-02-21 12:50:00 Test Item Value Reference Range Interpretation Comments HCO3 Justin (test code = HCO3 Justin) 30 22-26 [facility] TexasHnwzjogCOIAYDOQA5015-73-90 12:50:00 Test Item Value Reference Range Interpretation Comments BE Justin (test code = BE Justin) 3 -2-2 [place] 922233-02-21 12:50:00 Test Item Value Reference Range Interpretation Comments O2 Sat Justin (calc) (test code = O2 Sat 75.9 40.0-70.0 Justin (calc)) [place] 922233-02-21 12:50:00 Test Item Value Reference Range Interpretation Comments Temp Justin (test code = Temp Justin) 37.0 [facility]owznlADJEYZFBHM6013-39-20 12:50:00 Test Item Value Reference Range Interpretation Comments ACT (TEG) Rapid (test code = ACT (TEG) 113 s 86-118 Rapid) [facility] HospitalRwwlzkrXHYEQKNHVF5778-25-15 12:50:00 Test Item Value Reference Range Interpretation Comments Split Point Rapid (test code = Split 0.6 min Point Rapid) [facility] HospitalCzhmrptTICFICQLVE7452-42-39 12:50:00 Test Item Value Reference Range Interpretation Comments R-time Rapid (test code = R-time 0.7 min 0.4-0.7 Rapid) [place] 963423-02-21 12:50:00 Test Item Value Reference Range Interpretation Comments K-time Rapid (test code = K-time 1.1 min 0.6-2.3 Rapid) [place] 963423-02-21 12:50:00 Test Item Value Reference Range Interpretation Comments Angle Rapid (test code = Angle 78 degrees 64-80 Rapid) [facility] HospitalAdyrevaKCJCUOXRUS2145-23-62 12:50:00 Test Item Value Reference Range Interpretation Comments Max Amplitude Rapid (test code = Max 65 mm 52-71 Amplitude Rapid) [facility] HospitalEcuumrfPWOHLIDWMR4318-64-73 12:50:00 Test Item Value Reference Range Interpretation Comments G-value Rapid (test code = G-value 9.2 5.0-11.6 Rapid) [place] 963423-02-21 12:50:00 Test Item Value Reference Range Interpretation Comments Estimated % Lysis Rapid 0.0 See_Comment [Au tomated message] The (test code = Estimated syste m which generated % Lysis Rapid) this result t ransmitted reference range : <=7.5. The reference r christiano was not used to int erpret this result as normal/abnormal . [facility] HospitalMujsorsFZIALSBKCJ5203-15-91 12:50:00 Test Item Value Reference Range Interpretation Comments Plt Morph (test code = See Note 1(11/21/22 Plt Morph) 6:50 AM) [place] 963423-02-21 12:50:00 Test Item Value Reference Range Interpretation Comments Stomatocyte (test code = Stomatocyte) slight [place] 963423-02-21 12:50:00 Test Item Value Reference Range Interpretation Comments WBC X 10x3 (test code = WBC X 10x3) 8.7 3.7-10.4 [place] [address]-02-21 12:50:00 Test Item Value Reference Range Interpretation Comments RBC X 10x6 (test code = RBC X 10x6) 3.56 4.20-5.40 [place] [address]-02-21 12:50:00 Test Item Value Reference Range Interpretation Comments Hgb (test code = Hgb) 10.4 12.0-16.0 [place] [address]-02-21 12:50:00 Test Item Value Reference Range Interpretation Comments Hct (test code = Hct) 32.3 36.0-48.0 [place] 963423-02-21 12:50:00 Test Item Value Reference Range Interpretation Comments MCV (test code = MCV) 90.8 80.0-98.0 [place] [address]-02-21 12:50:00 Test Item Value Reference Range Interpretation Comments MCH (test code = MCH) 29.3 pg 27.0-31.0 [place] [address]-02-21 12:50:00 Test Item Value Reference Range Interpretation Comments MCHC (test code = MCHC) 32.2 32.0-36.0 [facility] HospitalTzrzjyvNIUYDHJJZO5857-86-54 12:50:00 Test Item Value Reference Range Interpretation Comments RDW (test code = RDW) 13.7 11.5-14.5 [place] [address]-02-21 12:50:00 Test Item Value Reference Range Interpretation Comments Platelet (test code = Platelet) 137 133-450 [place] 963423-02-21 12:50:00 Test Item Value Reference Range Interpretation Comments MPV (test code = MPV) 7.9 7.4-10.4 [place] [address]-02-21 12:50:00 Test Item Value Reference Range Interpretation Comments ACT (TEG) Rapid (test code = ACT (TEG) 113 s 86-118 Rapid) [place] 963423-02-21 12:50:00 Test Item Value Reference Range Interpretation Comments Split Point Rapid (test code = Split 0.6 min Point Rapid) [place] 963423-02-21 12:50:00 Test Item Value Reference Range Interpretation Comments R-time Rapid (test code = R-time 0.7 min 0.4-0.7 Rapid) [place] [address]-02-21 12:50:00 Test Item Value Reference Range Interpretation Comments K-time Rapid (test code = K-time 1.1 min 0.6-2.3 Rapid) [place] [address]-02-21 12:50:00 Test Item Value Reference Range Interpretation Comments Angle Rapid (test code = Angle 78 degrees 64-80 Rapid) [place] [address]-02-21 12:50:00 Test Item Value Reference Range Interpretation Comments Max Amplitude Rapid (test code = Max 65 mm 52-71 Amplitude Rapid) [place] [address]-02-21 12:50:00 Test Item Value Reference Range Interpretation Comments G-value Rapid (test code = G-value 9.2 5.0-11.6 Rapid) [place] [address]-02-21 12:50:00 Test Item Value Reference Range Interpretation Comments Estimated % Lysis Rapid 0.0 See_Comment [Au tomated message] The (test code = Estimated syste m which generated % Lysis Rapid) this result t ransmitted reference range : <=7.5. The reference r christiano was not used to int erpret this result as normal/abnormal . [place] 963423-02-21 12:50:00 Test Item Value Reference Range Interpretation Comments Plt Morph (test code = See Note 1(11/21/22 Plt Morph) 6:50 AM) [place] [address]-02-21 12:50:00 Test Item Value Reference Range Interpretation Comments Segs (test code = Segs) 64.1 45.0-75.0 [place] [address]-02-21 12:50:00 Test Item Value Reference Range Interpretation Comments Lymphocytes (test code = Lymphocytes) 22.0 20.0-40.0 [place] [address]-02-21 12:50:00 Test Item Value Reference Range Interpretation Comments Monocytes (test code = Monocytes) 8.3 2.0-12.0 [place] [address]-02-21 12:50:00 Test Item Value Reference Range Interpretation Comments Eosinophils (test code = 4.7 See_Comment [A utomated message] The Eosinophils) system which ge nerated this result tra nsmitted reference range : <=4.0. The reference r christiano was not used to int erpret this result as normal/abnormal . [facility] HospitalYnnwmnxFTATBFDTUH6802-70-78 12:50:00 Test Item Value Reference Range Interpretation Comments Basophils (test code = 0.9 See_Comment [Aut omated message] The Basophils) system which ge nerated this result tra nsmitted reference range : <=1.0. The reference r christiano was not used to int erpret this result as normal/abnormal . [place] 963423-02-21 12:50:00 Test Item Value Reference Range Interpretation Comments Neutrophils # (test code = Neutrophils 5.6 1.5-8.1 #) [place] 963423-02-21 12:50:00 Test Item Value Reference Range Interpretation Comments Lymphocytes # (test code = Lymphocytes 1.9 1.0-5.5 #) [place] 963423-02-21 12:50:00 Test Item Value Reference Range Interpretation Comments Monocytes # (test code 0.7 See_Comment [Aut omated message] The = Monocytes #) system which generated this result tra nsmitted reference range : <=0.8. The reference r christiano was not used to int erpret this result as normal/abnormal . [facility] HospitalDzsfpetJZABUFZQTL9051-22-42 12:50:00 Test Item Value Reference Range Interpretation Comments Eosinophils # (test code 0.4 See_Comment [A utomated message] The = Eosinophils #) system [facility] h generated this result tra nsmitted reference range : <=0.5. The reference r christiano was not used to int erpret this result as normal/abnormal . [facility] HospitalPjgedlrQMPYDUNUHN9260-68-44 12:50:00 Test Item Value Reference Range Interpretation Comments Basophils # (test code 0.1 See_Comment [Aut omated message] The = Basophils #) system which generated this result tra nsmitted reference range : <=0.2. The reference r christiano was not used to int erpret this result as normal/abnormal . [place] 963423-02-21 12:50:00 Test Item Value Reference Range Interpretation Comments Stomatocyte (test code = Stomatocyte) slight [facility]LamfeuhZGNNZTKKOZ0116-55-83 12:50:00 Test Item Value Reference Range Interpretation Comments Ethanol Lvl (test code = Ethanol Lvl) no gt [facility] YvpumsvYIYPHRAHVK0480-79-07 12:50:00 Test Item Value Reference Range Interpretation Comments Etoh (%) (test code = Etoh (%)) no gt [facility] W-21 NVSCHGL3468-57-30 12:50:00 Test Item Value Reference Range Interpretation Comments ABO/Rh (test code = ABO/Rh) O POS [facility] W-21 OJSQOTM7689-09-28 12:50:00 Test Item Value Reference Range Interpretation Comments Antibody Scrn (test Negative (11/21/22 6:50 code = Antibody Scrn) AM) [facility] W-21 QYUTMKR1912-51-86 12:50:00 Test Item Value Reference Range Interpretation Comments ABO/Rh (test code = ABO/Rh) O POS [facility] W-21 HBVLCBM2109-14-27 12:50:00 Test Item Value Reference Range Interpretation Comments Antibody Scrn (test Negative (11/21/22 6:50 code = Antibody Scrn) AM) [facility] SelpheeCARDIAC DRTHXDJ3611-68-92 12:50:00 Test Item Value Reference Range Interpretation Comments HS Troponin I (test code = HS Troponin 15 I) [place] NPXGZ3647-06-63 12:50:00 Test Item Value Reference Range Interpretation Comments Glucose Lvl (test code = Glucose Lvl) 99 70-99 [facility] barcoo2023-02-21 12:50:00 Test Item Value Reference Range Interpretation Comments BUN (test code = BUN) 38 7-22 [facility] barcoo2023-02-21 12:50:00 Test Item Value Reference Range Interpretation Comments Creatinine Lvl (test code = Creatinine 2.38 0.50-1.40 Lvl) [place]2023-02-21 12:50:00 Test Item Value Reference Range Interpretation Comments Sodium Lvl (test code = Sodium Lvl) 140 135-145 [facility] barcoo2023-02-21 12:50:00 Test Item Value Reference Range Interpretation Comments Potassium Lvl (test code = Potassium 3.9 3.5-5.1 Lvl) [place]2023-02-21 12:50:00 Test Item Value Reference Range Interpretation Comments Chloride Lvl (test code = Chloride Lvl) 107 95-109 [place] 457353-02-21 12:50:00 Test Item Value Reference Range Interpretation Comments CO2 (test code = CO2) 27 24-32 [place] 457353-02-21 12:50:00 Test Item Value Reference Range Interpretation Comments Calcium Lvl (test code = Calcium Lvl) 8.1 8.5-10.5 [place] 457353-02-21 12:50:00 Test Item Value Reference Range Interpretation Comments AGAP (test code = AGAP) 9.9 10.0-20.0 [place] 457353-02-21 12:50:00 Test Item Value Reference Range Interpretation Comments eGFR (test code = eGFR) 20 [place] 457353-02-21 12:50:00 Test Item Value Reference Range Interpretation Comments Lactic Acid Lvl (test code = Lactic 0.7 0.5-2.2 Acid Lvl) [place] 457353-02-21 12:50:00 Test Item Value Reference Range Interpretation Comments Total Protein (test code = Total 6.1 6.4-8.4 Protein) [place] 457353-02-21 12:50:00 Test Item Value Reference Range Interpretation Comments Albumin Lvl (test code = Albumin Lvl) 2.9 3.5-5.0 [place] [address]-02-21 12:50:00 Test Item Value Reference Range Interpretation Comments Globulin (test code = Globulin) 3.2 2.7-4.2 [place] 457353-02-21 12:50:00 Test Item Value Reference Range Interpretation Comments A/G Ratio (test code = A/G Ratio) 0.9 1 0.7-1.6 [place] [address]-02-21 12:50:00 Test Item Value Reference Range Interpretation Comments ALT (test code = ALT) 16 See_Comment [Auto mated message] The system which ge nerated this result transmit sheba reference range : <=65. The reference range was not used to interpr et this result as edy l/abnormal. [place] 457353-02-21 12:50:00 Test Item Value Reference Range Interpretation Comments AST (test code = AST) 15 See_Comment [Auto mated message] The system which ge nerated this result transmit sheba reference range : <=37. The reference range was not used to interpr et this result as edy l/abnormal. [facility] [employer] [id number] 12:50:00 Test Item Value Reference Range Interpretation Comments Alk Phos (test code = Alk Phos) 96 39-136 [facility] [id number] 12:50:00 Test Item Value Reference Range Interpretation Comments Bili Total (test code = Bili Total) 0.2 0.2-1.3 [facility] [employer] [id number] 12:50:00 Test Item Value Reference Range Interpretation Comments Bili Direct (test code no gt See_Comment [Aut omated message] The = Bili Direct) system which generated this result tra nsmitted reference range : <=0.3. The reference r christiano was not used to int erpret this result as edy l/abnormal. [facility] [employer] [id number] 12:50:00 Test Item Value Reference Range Interpretation Comments Bili Indirect Unable to See_Comment [Automated (test code = Bili Calculate message] T he system Indirect) which generated this result transmitted reference range : <=1.0. The reference range was not used to interpret this result as normal/abnormal . [facility]aleJritayoEFGVTFKYT4401-83-22 12:50:00 Test Item Value Reference Range Interpretation Comments Ethanol Lvl (test code = Ethanol Lvl) no gt [facility]aleDnbiyjtYNSXGFAWC0678-73-87 12:50:00 Test Item Value Reference Range Interpretation Comments Etoh (%) (test code = Etoh (%)) no gt [facility]aleBznudvyQQNEHJCSY5046-95-15 12:50:00 Test Item Value Reference Range Interpretation Comments Lactic Acid Lvl (test code = Lactic 0.7 0.5-2.2 Acid Lvl) [facility]aleRktpgmmGMVLMCFGM5178-59-30 12:50:00 Test Item Value Reference Range Interpretation Comments Total Protein (test code = Total 6.1 6.4-8.4 Protein) [facility]aleMljqmxoZFAWTXZLQ5083-06-76 12:50:00 Test Item Value Reference Range Interpretation Comments Albumin Lvl (test code = Albumin Lvl) 2.9 3.5-5.0 [facility]aleHqdkkuxOHQEVURNE7242-15-44 12:50:00 Test Item Value Reference Range Interpretation Comments Globulin (test code = Globulin) 3.2 2.7-4.2 [facility]aleFpdjtlgXXLZFGVKX6144-37-88 12:50:00 Test Item Value Reference Range Interpretation Comments A/G Ratio (test code = A/G Ratio) 0.9 1 0.7-1.6 [facility]aleTcyscdxQYRBCRKPD8940-71-03 12:50:00 Test Item Value Reference Range Interpretation Comments ALT (test code = ALT) 16 See_Comment [Auto mated message] The system which ge nerated this result transmit sheba reference range : <=65. The reference range was not used to interpr et this result as edy l/abnormal. [facility]alePmvemkmFUTQHXSQR5743-60-17 12:50:00 Test Item Value Reference Range Interpretation Comments AST (test code = AST) 15 See_Comment [Auto mated message] The system which ge nerated this result transmit sheba reference range : <=37. The reference range was not used to interpr et this result as edy l/abnormal. [facility]aleScyiwbzQVBWQYZJS8982-27-68 12:50:00 Test Item Value Reference Range Interpretation Comments Alk Phos (test code = Alk Phos) 96 39-136 [facility]aleNvjdkjbXLPUNYAZR1890-58-77 12:50:00 Test Item Value Reference Range Interpretation Comments Bili Total (test code = Bili Total) 0.2 0.2-1.3 [facility]valeMudiemlVREFKUFVJ5413-96-85 12:50:00 Test Item Value Reference Range Interpretation Comments Bili Direct (test code no gt See_Comment [Aut omated message] The = Bili Direct) system which generated this result tra nsmitted reference range : <=0.3. The reference r christiano was not used to int erpret this result as edy l/abnormal. [facility] BsbjwgrYNKENDHSP0750-22-70 12:50:00 Test Item Value Reference Range Interpretation Comments Bili Indirect Unable to See_Comment [Automated (test code = Bili Calculate message] T he system Indirect) which generated this result transmitted reference range : <=1.0. The reference range was not used to interpret this result as normal/abnormal . [facility]aleQldfzkbEDYHHCYTH4447-79-31 12:50:00 Test Item Value Reference Range Interpretation Comments HS Troponin I (test code = HS Troponin 15 I) [facility] TexasKcrmyufPPRJPGKSP3189-29-14 12:50:00 Test Item Value Reference Range Interpretation Comments pH Justin (test code = pH Justin) 7.35 1 7.28-7.42 [place] [address]-02-21 12:50:00 Test Item Value Reference Range Interpretation Comments pCO2 Justin (test code = pCO2 Justin) 55 38-52 [place] 922233-02-21 12:50:00 Test Item Value Reference Range Interpretation Comments pO2 Justin (test code = pO2 Justin) 43 20-49 [place] 922233-02-21 12:50:00 Test Item Value Reference Range Interpretation Comments HCO3 Justin (test code = HCO3 Justin) 30 22-26 [place] [address]-02-21 12:50:00 Test Item Value Reference Range Interpretation Comments BE Justin (test code = BE Justin) 3 -2-2 [place] 922233-02-21 12:50:00 Test Item Value Reference Range Interpretation Comments O2 Sat Justin (calc) (test code = O2 Sat 75.9 40.0-70.0 Justin (calc)) [facility] TexasJzpccfuOBBEPABXW1868-46-15 12:50:00 Test Item Value Reference Range Interpretation Comments Temp Justin (test code = Temp Justin) 37.0 [place] 963423-02-21 12:50:00 Test Item Value Reference Range Interpretation Comments ACT (TEG) Rapid (test code = ACT (TEG) 113 s 86-118 Rapid) [place] 963423-02-21 12:50:00 Test Item Value Reference Range Interpretation Comments Split Point Rapid (test code = Split 0.6 min Point Rapid) [place] 963423-02-21 12:50:00 Test Item Value Reference Range Interpretation Comments R-time Rapid (test code = R-time 0.7 min 0.4-0.7 Rapid) [place] 963423-02-21 12:50:00 Test Item Value Reference Range Interpretation Comments K-time Rapid (test code = K-time 1.1 min 0.6-2.3 Rapid) [place] 963423-02-21 12:50:00 Test Item Value Reference Range Interpretation Comments Angle Rapid (test code = Angle 78 degrees 64-80 Rapid) [place] 963423-02-21 12:50:00 Test Item Value Reference Range Interpretation Comments Max Amplitude Rapid (test code = Max 65 mm 52-71 Amplitude Rapid) [place] 963423-02-21 12:50:00 Test Item Value Reference Range Interpretation Comments G-value Rapid (test code = G-value 9.2 5.0-11.6 Rapid) [facility] HospitalXjjqvrcEZBRHGCOMJ1530-65-15 12:50:00 Test Item Value Reference Range Interpretation Comments Estimated % Lysis Rapid 0.0 See_Comment [Au tomated message] The (test code = Estimated syste m which generated % Lysis Rapid) this result t ransmitted reference range : <=7.5. The reference r christiano was not used to int erpret this result as normal/abnormal . [facility] HospitalLswmqnvMMZQZLVBHW4068-75-13 12:50:00 Test Item Value Reference Range Interpretation Comments Plt Morph (test code = See Note 1(11/21/22 Plt Morph) 6:50 AM) [place] 963423-02-21 12:50:00 Test Item Value Reference Range Interpretation Comments Stomatocyte (test code = Stomatocyte) slight [facility] HospitalMxwvwysDLPSUQREQX7860-54-35 12:50:00 Test Item Value Reference Range Interpretation Comments WBC X 10x3 (test code = WBC X 10x3) 8.7 3.7-10.4 [facility] HospitalYvvyugfKGOKQPYOYI1636-26-73 12:50:00 Test Item Value Reference Range Interpretation Comments RBC X 10x6 (test code = RBC X 10x6) 3.56 4.20-5.40 [facility] HospitalPmdbwtbGBLDXJKANV9645-88-64 12:50:00 Test Item Value Reference Range Interpretation Comments Hgb (test code = Hgb) 10.4 12.0-16.0 [place] [address]-02-21 12:50:00 Test Item Value Reference Range Interpretation Comments Hct (test code = Hct) 32.3 36.0-48.0 [place] 963423-02-21 12:50:00 Test Item Value Reference Range Interpretation Comments MCV (test code = MCV) 90.8 80.0-98.0 [place] 963423-02-21 12:50:00 Test Item Value Reference Range Interpretation Comments MCH (test code = MCH) 29.3 pg 27.0-31.0 [place] [address]-02-21 12:50:00 Test Item Value Reference Range Interpretation Comments MCHC (test code = MCHC) 32.2 32.0-36.0 [place] [address]-02-21 12:50:00 Test Item Value Reference Range Interpretation Comments RDW (test code = RDW) 13.7 11.5-14.5 [place] [address]-02-21 12:50:00 Test Item Value Reference Range Interpretation Comments Platelet (test code = Platelet) 137 133-450 [place] [address]-02-21 12:50:00 Test Item Value Reference Range Interpretation Comments MPV (test code = MPV) 7.9 7.4-10.4 [place] [address]-02-21 12:50:00 Test Item Value Reference Range Interpretation Comments ACT (TEG) Rapid (test code = ACT (TEG) 113 s 86-118 Rapid) [place] [address]-02-21 12:50:00 Test Item Value Reference Range Interpretation Comments Split Point Rapid (test code = Split 0.6 min Point Rapid) [place] [address]-02-21 12:50:00 Test Item Value Reference Range Interpretation Comments R-time Rapid (test code = R-time 0.7 min 0.4-0.7 Rapid) [place] [address]-02-21 12:50:00 Test Item Value Reference Range Interpretation Comments K-time Rapid (test code = K-time 1.1 min 0.6-2.3 Rapid) [place] [address]-02-21 12:50:00 Test Item Value Reference Range Interpretation Comments Angle Rapid (test code = Angle 78 degrees 64-80 Rapid) [place] [address]-02-21 12:50:00 Test Item Value Reference Range Interpretation Comments Max Amplitude Rapid (test code = Max 65 mm 52-71 Amplitude Rapid) [place] [address]-02-21 12:50:00 Test Item Value Reference Range Interpretation Comments G-value Rapid (test code = G-value 9.2 5.0-11.6 Rapid) [place] [address]-02-21 12:50:00 Test Item Value Reference Range Interpretation Comments Estimated % Lysis Rapid 0.0 See_Comment [Au tomated message] The (test code = Estimated syste m which generated % Lysis Rapid) this result t ransmitted reference range : <=7.5. The reference r christiano was not used to int erpret this result as normal/abnormal . [place] 963423-02-21 12:50:00 Test Item Value Reference Range Interpretation Comments Plt Morph (test code = See Note 1(11/21/22 Plt Morph) 6:50 AM) [place] 963423-02-21 12:50:00 Test Item Value Reference Range Interpretation Comments Segs (test code = Segs) 64.1 45.0-75.0 [place] 963423-02-21 12:50:00 Test Item Value Reference Range Interpretation Comments Lymphocytes (test code = Lymphocytes) 22.0 20.0-40.0 [place] 963423-02-21 12:50:00 Test Item Value Reference Range Interpretation Comments Monocytes (test code = Monocytes) 8.3 2.0-12.0 [place] 963423-02-21 12:50:00 Test Item Value Reference Range Interpretation Comments Eosinophils (test code = 4.7 See_Comment [A utomated message] The Eosinophils) system which ge nerated this result tra nsmitted reference range : <=4.0. The reference r christiano was not used to int erpret this result as normal/abnormal . [facility] HospitalTrtyoxnIQUOCDICJW7652-05-20 12:50:00 Test Item Value Reference Range Interpretation Comments Basophils (test code = 0.9 See_Comment [Aut omated message] The Basophils) system which ge nerated this result tra nsmitted reference range : <=1.0. The reference r christiano was not used to int erpret this result as normal/abnormal . [facility] HospitalCyjbzgpDPSRUSXCMK1579-38-47 12:50:00 Test Item Value Reference Range Interpretation Comments Neutrophils # (test code = Neutrophils 5.6 1.5-8.1 #) [place] 963423-02-21 12:50:00 Test Item Value Reference Range Interpretation Comments Lymphocytes # (test code = Lymphocytes 1.9 1.0-5.5 #) [place] 963423-02-21 12:50:00 Test Item Value Reference Range Interpretation Comments Monocytes # (test code 0.7 See_Comment [Aut omated message] The = Monocytes #) system which generated this result tra nsmitted reference range : <=0.8. The reference r christiano was not used to int erpret this result as normal/abnormal . [facility] PmqqmeyDMPCJPJRHH9344-28-08 12:50:00 Test Item Value Reference Range Interpretation Comments Eosinophils # (test code 0.4 See_Comment [A utomated message] The = Eosinophils #) system whic h generated this result tra nsmitted reference range : <=0.5. The reference r christiano was not used to int erpret this result as normal/abnormal . [facility] JkxuofjAOYJKSWYDO5566-77-25 12:50:00 Test Item Value Reference Range Interpretation Comments Basophils # (test code 0.1 See_Comment [Aut omated message] The = Basophils #) system which generated this result tra nsmitted reference range : <=0.2. The reference r christiano was not used to int erpret this result as normal/abnormal . [employer]kyjrUAZSNBKKDS7275-00-85 12:50:00 Test Item Value Reference Range Interpretation Comments Stomatocyte (test code = Stomatocyte) slight [facility] KhlyrxqRQWRRKPOHE7372-63-01 12:50:00 Test Item Value Reference Range Interpretation Comments Ethanol Lvl (test code = Ethanol Lvl) no gt [facility] PplpkgsHDXVNXXYFT2754-20-12 12:50:00 Test Item Value Reference Range Interpretation Comments Etoh (%) (test code = Etoh (%)) no gt [place] [employer] [id number] 12:50:00 Test Item Value Reference Range Interpretation Comments ABO/Rh (test code = ABO/Rh) O POS [place] [employer] [id number] 12:50:00 Test Item Value Reference Range Interpretation Comments Antibody Scrn (test Negative (11/21/22 6:50 code = Antibody Scrn) AM) [facility] W-21 [id number] 12:50:00 Test Item Value Reference Range Interpretation Comments ABO/Rh (test code = ABO/Rh) O POS [place] [employer] [id number] 12:50:00 Test Item Value Reference Range Interpretation Comments Antibody Scrn (test Negative (11/21/22 6:50 code = Antibody Scrn) AM) [facility] [id number] 12:50:00 Test Item Value Reference Range Interpretation Comments HS Troponin I (test code = HS Troponin 15 I) [facility] [id number] 12:50:00 Test Item Value Reference Range Interpretation Comments Glucose Lvl (test code = Glucose Lvl) 99 70-99 [facility]2023-02-21 12:50:00 Test Item Value Reference Range Interpretation Comments BUN (test code = BUN) 38 7-22 [facility]2023-02-21 12:50:00 Test Item Value Reference Range Interpretation Comments Creatinine Lvl (test code = Creatinine 2.38 0.50-1.40 Lvl) [facility]2023-02-21 12:50:00 Test Item Value Reference Range Interpretation Comments Sodium Lvl (test code = Sodium Lvl) 140 135-145 [facility]2023-02-21 12:50:00 Test Item Value Reference Range Interpretation Comments Potassium Lvl (test code = Potassium 3.9 3.5-5.1 Lvl) [facility]2023-02-21 12:50:00 Test Item Value Reference Range Interpretation Comments Chloride Lvl (test code = Chloride Lvl) 107 95-109 [facility]2023-02-21 12:50:00 Test Item Value Reference Range Interpretation Comments CO2 (test code = CO2) 27 24-32 [facility]2023-02-21 12:50:00 Test Item Value Reference Range Interpretation Comments Calcium Lvl (test code = Calcium Lvl) 8.1 8.5-10.5 [facility]2023-02-21 12:50:00 Test Item Value Reference Range Interpretation Comments AGAP (test code = AGAP) 9.9 10.0-20.0 [facility]2023-02-21 12:50:00 Test Item Value Reference Range Interpretation Comments eGFR (test code = eGFR) 20 [facility]2023-02-21 12:50:00 Test Item Value Reference Range Interpretation Comments Lactic Acid Lvl (test code = Lactic 0.7 0.5-2.2 Acid Lvl) [facility]2023-02-21 12:50:00 Test Item Value Reference Range Interpretation Comments Total Protein (test code = Total 6.1 6.4-8.4 Protein) [place] 457353-02-21 12:50:00 Test Item Value Reference Range Interpretation Comments Albumin Lvl (test code = Albumin Lvl) 2.9 3.5-5.0 [place] [address]-02-21 12:50:00 Test Item Value Reference Range Interpretation Comments Globulin (test code = Globulin) 3.2 2.7-4.2 [place] [address]-02-21 12:50:00 Test Item Value Reference Range Interpretation Comments A/G Ratio (test code = A/G Ratio) 0.9 1 0.7-1.6 [place] [address]-02-21 12:50:00 Test Item Value Reference Range Interpretation Comments ALT (test code = ALT) 16 <=65 [place] [address]-02-21 12:50:00 Test Item Value Reference Range Interpretation Comments AST (test code = AST) 15 <=37 [place] [address]-02-21 12:50:00 Test Item Value Reference Range Interpretation Comments Alk Phos (test code = Alk Phos) 96 39-136 [place] 457353-02-21 12:50:00 Test Item Value Reference Range Interpretation Comments Bili Total (test code = Bili Total) 0.2 0.2-1.3 [place] [address]-02-21 12:50:00 Test Item Value Reference Range Interpretation Comments Bili Direct (test code = Bili Direct) no gt <=0.3 [place] 457353-02-21 12:50:00 Test Item Value Reference Range Interpretation Comments Bili Indirect (test code Unable to Calculate <=1.0 = Bili Indirect) [place] [address]-02-21 12:50:00 Test Item Value Reference Range Interpretation Comments Ethanol Lvl (test code = Ethanol Lvl) no gt [place] 922233-02-21 12:50:00 Test Item Value Reference Range Interpretation Comments Etoh (%) (test code = Etoh (%)) no gt [place] 922233-02-21 12:50:00 Test Item Value Reference Range Interpretation Comments Lactic Acid Lvl (test code = Lactic 0.7 0.5-2.2 Acid Lvl) [place] [address]-02-21 12:50:00 Test Item Value Reference Range Interpretation Comments Total Protein (test code = Total 6.1 6.4-8.4 Protein) [place] [address]-02-21 12:50:00 Test Item Value Reference Range Interpretation Comments Albumin Lvl (test code = Albumin Lvl) 2.9 3.5-5.0 [facility]UyewjbiGVVZYCNZX0193-78-70 12:50:00 Test Item Value Reference Range Interpretation Comments Globulin (test code = Globulin) 3.2 2.7-4.2 [facility] TexasPvkdfylQGMDBWHNS7894-65-70 12:50:00 Test Item Value Reference Range Interpretation Comments A/G Ratio (test code = A/G Ratio) 0.9 1 0.7-1.6 [place] [address]-02-21 12:50:00 Test Item Value Reference Range Interpretation Comments ALT (test code = ALT) 16 <=65 [place] [address]-02-21 12:50:00 Test Item Value Reference Range Interpretation Comments AST (test code = AST) 15 <=37 [place] [address]-02-21 12:50:00 Test Item Value Reference Range Interpretation Comments Alk Phos (test code = Alk Phos) 96 39-136 [facility] TexasZfsxwgfZCNLQZIZA5640-96-12 12:50:00 Test Item Value Reference Range Interpretation Comments Bili Total (test code = Bili Total) 0.2 0.2-1.3 [place] 922233-02-21 12:50:00 Test Item Value Reference Range Interpretation Comments Bili Direct (test code = Bili Direct) no gt <=0.3 [place] [address]-02-21 12:50:00 Test Item Value Reference Range Interpretation Comments Bili Indirect (test code Unable to Calculate <=1.0 = Bili Indirect) [place] [address]-02-21 12:50:00 Test Item Value Reference Range Interpretation Comments HS Troponin I (test code = HS Troponin 15 I) [facility] TexasVzbhnjdULHPJRYPR2678-95-78 12:50:00 Test Item Value Reference Range Interpretation Comments pH Justin (test code = pH Justin) 7.35 1 7.28-7.42 [place] 922233-02-21 12:50:00 Test Item Value Reference Range Interpretation Comments pCO2 Justin (test code = pCO2 Justin) 55 38-52 [place] 922233-02-21 12:50:00 Test Item Value Reference Range Interpretation Comments pO2 Justin (test code = pO2 Justin) 43 20-49 [place] 922233-02-21 12:50:00 Test Item Value Reference Range Interpretation Comments HCO3 Justin (test code = HCO3 Justin) 30 22-26 [place] 922233-02-21 12:50:00 Test Item Value Reference Range Interpretation Comments BE Justin (test code = BE Justin) 3 -2-2 [place] 922233-02-21 12:50:00 Test Item Value Reference Range Interpretation Comments O2 Sat Justin (calc) (test code = O2 Sat 75.9 40.0-70.0 Justin (calc)) [place] 922233-02-21 12:50:00 Test Item Value Reference Range Interpretation Comments Temp Justin (test code = Temp Justin) 37.0 [place] 963423-02-21 12:50:00 Test Item Value Reference Range Interpretation Comments ACT (TEG) Rapid (test code = ACT (TEG) 113 s 86-118 Rapid) [facility] 12:50:00 Test Item Value Reference Range Interpretation Comments Split Point Rapid (test code = Split 0.6 min Point Rapid) [place] 963423-02-21 12:50:00 Test Item Value Reference Range Interpretation Comments R-time Rapid (test code = R-time 0.7 min 0.4-0.7 Rapid) [place] 963423-02-21 12:50:00 Test Item Value Reference Range Interpretation Comments K-time Rapid (test code = K-time 1.1 min 0.6-2.3 Rapid) [place] 963423-02-21 12:50:00 Test Item Value Reference Range Interpretation Comments Angle Rapid (test code = Angle 78 degrees 64-80 Rapid) [place] 963423-02-21 12:50:00 Test Item Value Reference Range Interpretation Comments Max Amplitude Rapid (test code = Max 65 mm 52-71 Amplitude Rapid) [place] 963423-02-21 12:50:00 Test Item Value Reference Range Interpretation Comments G-value Rapid (test code = G-value 9.2 5.0-11.6 Rapid) [place] 963423-02-21 12:50:00 Test Item Value Reference Range Interpretation Comments Estimated % Lysis Rapid (test code = 0.0 <=7.5 Estimated % Lysis Rapid) [place] 963423-02-21 12:50:00 Test Item Value Reference Range Interpretation Comments Plt Morph (test code = See Note 1(11/21/22 Plt Morph) 6:50 AM) [place] 963423-02-21 12:50:00 Test Item Value Reference Range Interpretation Comments Stomatocyte (test code = Stomatocyte) slight [place] 963423-02-21 12:50:00 Test Item Value Reference Range Interpretation Comments WBC X 10x3 (test code = WBC X 10x3) 8.7 3.7-10.4 [place] [address]-02-21 12:50:00 Test Item Value Reference Range Interpretation Comments RBC X 10x6 (test code = RBC X 10x6) 3.56 4.20-5.40 [place] 963423-02-21 12:50:00 Test Item Value Reference Range Interpretation Comments Hgb (test code = Hgb) 10.4 12.0-16.0 [place] [address]-02-21 12:50:00 Test Item Value Reference Range Interpretation Comments Hct (test code = Hct) 32.3 36.0-48.0 [place] [address]-02-21 12:50:00 Test Item Value Reference Range Interpretation Comments MCV (test code = MCV) 90.8 80.0-98.0 [place] [address]-02-21 12:50:00 Test Item Value Reference Range Interpretation Comments MCH (test code = MCH) 29.3 pg 27.0-31.0 [place] [address]-02-21 12:50:00 Test Item Value Reference Range Interpretation Comments MCHC (test code = MCHC) 32.2 32.0-36.0 [place] [address]-02-21 12:50:00 Test Item Value Reference Range Interpretation Comments RDW (test code = RDW) 13.7 11.5-14.5 [place] [address]-02-21 12:50:00 Test Item Value Reference Range Interpretation Comments Platelet (test code = Platelet) 137 133-450 [place] 963423-02-21 12:50:00 Test Item Value Reference Range Interpretation Comments MPV (test code = MPV) 7.9 7.4-10.4 [place] [address]-02-21 12:50:00 Test Item Value Reference Range Interpretation Comments ACT (TEG) Rapid (test code = ACT (TEG) 113 s 86-118 Rapid) [place] 963423-02-21 12:50:00 Test Item Value Reference Range Interpretation Comments Split Point Rapid (test code = Split 0.6 min Point Rapid) [place] [address]-02-21 12:50:00 Test Item Value Reference Range Interpretation Comments R-time Rapid (test code = R-time 0.7 min 0.4-0.7 Rapid) [place] [address]-02-21 12:50:00 Test Item Value Reference Range Interpretation Comments K-time Rapid (test code = K-time 1.1 min 0.6-2.3 Rapid) [place] [address]-02-21 12:50:00 Test Item Value Reference Range Interpretation Comments Angle Rapid (test code = Angle 78 degrees 64-80 Rapid) [place] [address]-02-21 12:50:00 Test Item Value Reference Range Interpretation Comments Max Amplitude Rapid (test code = Max 65 mm 52-71 Amplitude Rapid) [place] [address]-02-21 12:50:00 Test Item Value Reference Range Interpretation Comments G-value Rapid (test code = G-value 9.2 5.0-11.6 Rapid) [place] 963423-02-21 12:50:00 Test Item Value Reference Range Interpretation Comments Estimated % Lysis Rapid (test code = 0.0 <=7.5 Estimated % Lysis Rapid) [place] [address]-02-21 12:50:00 Test Item Value Reference Range Interpretation Comments Plt Morph (test code = See Note 1(11/21/22 Plt Morph) 6:50 AM) [place] [address]-02-21 12:50:00 Test Item Value Reference Range Interpretation Comments Segs (test code = Segs) 64.1 45.0-75.0 [place] 963423-02-21 12:50:00 Test Item Value Reference Range Interpretation Comments Lymphocytes (test code = Lymphocytes) 22.0 20.0-40.0 [facility]EsvzmbuCPHPUXZIBX1202-68-64 12:50:00 Test Item Value Reference Range Interpretation Comments Monocytes (test code = Monocytes) 8.3 2.0-12.0 [facility] CenterRjdsqcfIXVPCQZQXW0095-24-62 12:50:00 Test Item Value Reference Range Interpretation Comments Eosinophils (test code = Eosinophils) 4.7 <=4.0 [facility]aleOngrzaxLEBKGDENOS1803-23-50 12:50:00 Test Item Value Reference Range Interpretation Comments Basophils (test code = Basophils) 0.9 <=1.0 [facility]aleKbajdobMJQJCIKSGD4081-62-92 12:50:00 Test Item Value Reference Range Interpretation Comments Neutrophils # (test code = Neutrophils 5.6 1.5-8.1 #) [facility]aleLzhlrteZUHPHQXASH7126-39-92 12:50:00 Test Item Value Reference Range Interpretation Comments Lymphocytes # (test code = Lymphocytes 1.9 1.0-5.5 #) [facility]valeDgnuzshAHFPDUSCIS0576-86-00 12:50:00 Test Item Value Reference Range Interpretation Comments Monocytes # (test code = Monocytes #) 0.7 <=0.8 [facility]valeZipdmtqSGPFDAXIDK8046-75-13 12:50:00 Test Item Value Reference Range Interpretation Comments Eosinophils # (test code = Eosinophils 0.4 <=0.5 #) [facility]aleDxncznmKTXCHSWYIJ0388-60-36 12:50:00 Test Item Value Reference Range Interpretation Comments Basophils # (test code = Basophils #) 0.1 <=0.2 [facility]valeAcqiliyZKNTDPJTPI8822-62-04 12:50:00 Test Item Value Reference Range Interpretation Comments Stomatocyte (test code = Stomatocyte) slight [facility] CenterHphwdwsLEJTFASSKC9103-60-52 12:50:00 Test Item Value Reference Range Interpretation Comments Ethanol Lvl (test code = Ethanol Lvl) no gt [facility]aleNkqweoaDIGXDLQEGT6391-79-47 12:50:00 Test Item Value Reference Range Interpretation Comments Etoh (%) (test code = Etoh (%)) no gt [facility] W-21 [id number] 12:50:00 Test Item Value Reference Range Interpretation Comments ABO/Rh (test code = ABO/Rh) O POS [facility] W-21 [id number] 12:50:00 Test Item Value Reference Range Interpretation Comments Antibody Scrn (test Negative (11/21/22 6:50 code = Antibody Scrn) AM) [facility] [employer] KBORSMZ0526-36-54 12:50:00 Test Item Value Reference Range Interpretation Comments ABO/Rh (test code = ABO/Rh) O POS [facility] [id number] 12:50:00 Test Item Value Reference Range Interpretation Comments Antibody Scrn (test Negative (11/21/22 6:50 code = Antibody Scrn) AM) [facility] VTLAKDZ1800-38-14 12:50:00 Test Item Value Reference Range Interpretation Comments HS Troponin I (test code = HS Troponin 15 I) [facility] [employer] [id number] 12:50:00 Test Item Value Reference Range Interpretation Comments Glucose Lvl (test code = Glucose Lvl) 99 70-99 [facility] [employer] [id number] 12:50:00 Test Item Value Reference Range Interpretation Comments BUN (test code = BUN) 38 7-22 [facility] [employer] [id number] 12:50:00 Test Item Value Reference Range Interpretation Comments Creatinine Lvl (test code = Creatinine 2.38 0.50-1.40 Lvl) [facility] [employer] [id number] 12:50:00 Test Item Value Reference Range Interpretation Comments Sodium Lvl (test code = Sodium Lvl) 140 135-145 [facility] [employer] [id number] 12:50:00 Test Item Value Reference Range Interpretation Comments Potassium Lvl (test code = Potassium 3.9 3.5-5.1 Lvl) [facility] [employer] [id number] 12:50:00 Test Item Value Reference Range Interpretation Comments Chloride Lvl (test code = Chloride Lvl) 107 95-109 [facility] barcoo2023-02-21 12:50:00 Test Item Value Reference Range Interpretation Comments CO2 (test code = CO2) 27 24-32 [facility] [employer] [id number] 12:50:00 Test Item Value Reference Range Interpretation Comments Calcium Lvl (test code = Calcium Lvl) 8.1 8.5-10.5 [facility] [employer] [id number] 12:50:00 Test Item Value Reference Range Interpretation Comments AGAP (test code = AGAP) 9.9 10.0-20.0 [place] 457353-02-21 12:50:00 Test Item Value Reference Range Interpretation Comments eGFR (test code = eGFR) 20 [facility]2023-02-21 12:50:00 Test Item Value Reference Range Interpretation Comments Lactic Acid Lvl (test code = Lactic 0.7 0.5-2.2 Acid Lvl) [place] 457353-02-21 12:50:00 Test Item Value Reference Range Interpretation Comments Total Protein (test code = Total 6.1 6.4-8.4 Protein) [facility]2023-02-21 12:50:00 Test Item Value Reference Range Interpretation Comments Albumin Lvl (test code = Albumin Lvl) 2.9 3.5-5.0 [place] 457353-02-21 12:50:00 Test Item Value Reference Range Interpretation Comments Globulin (test code = Globulin) 3.2 2.7-4.2 [place] 457353-02-21 12:50:00 Test Item Value Reference Range Interpretation Comments A/G Ratio (test code = A/G Ratio) 0.9 1 0.7-1.6 [place] 457353-02-21 12:50:00 Test Item Value Reference Range Interpretation Comments ALT (test code = ALT) 16 <=65 [place] 457353-02-21 12:50:00 Test Item Value Reference Range Interpretation Comments AST (test code = AST) 15 <=37 [place] 457353-02-21 12:50:00 Test Item Value Reference Range Interpretation Comments Alk Phos (test code = Alk Phos) 96 39-136 [place] 457353-02-21 12:50:00 Test Item Value Reference Range Interpretation Comments Bili Total (test code = Bili Total) 0.2 0.2-1.3 [place] 457353-02-21 12:50:00 Test Item Value Reference Range Interpretation Comments Bili Direct (test code = Bili Direct) no gt <=0.3 [place] 457353-02-21 12:50:00 Test Item Value Reference Range Interpretation Comments Bili Indirect (test code Unable to Calculate <=1.0 = Bili Indirect) [facility] TexasVhpizfaOECGENITC4462-55-62 12:50:00 Test Item Value Reference Range Interpretation Comments Ethanol Lvl (test code = Ethanol Lvl) no gt [facility] TexasNiosdnlWAQZZLKNM0857-88-01 12:50:00 Test Item Value Reference Range Interpretation Comments Etoh (%) (test code = Etoh (%)) no gt [facility] TexasJraosfsIIODCQSFT3755-01-82 12:50:00 Test Item Value Reference Range Interpretation Comments Lactic Acid Lvl (test code = Lactic 0.7 0.5-2.2 Acid Lvl) [facility] TexasDsuxvpaHASECMZZT9909-91-59 12:50:00 Test Item Value Reference Range Interpretation Comments Total Protein (test code = Total 6.1 6.4-8.4 Protein) [facility] TexasPqijmiqWYODKTLKW0997-43-96 12:50:00 Test Item Value Reference Range Interpretation Comments Albumin Lvl (test code = Albumin Lvl) 2.9 3.5-5.0 [facility] TexasNmgxhgpWJBFIERSO1361-34-67 12:50:00 Test Item Value Reference Range Interpretation Comments Globulin (test code = Globulin) 3.2 2.7-4.2 [facility] TexasXeiblqqKQHYEXKXB5626-93-78 12:50:00 Test Item Value Reference Range Interpretation Comments A/G Ratio (test code = A/G Ratio) 0.9 1 0.7-1.6 [facility] TexasMcmblcdBCIUWDUYH3412-48-96 12:50:00 Test Item Value Reference Range Interpretation Comments ALT (test code = ALT) 16 <=65 [facility] TexasZebqbjsDJPGWZRQO9770-30-71 12:50:00 Test Item Value Reference Range Interpretation Comments AST (test code = AST) 15 <=37 [facility] TexasQqadhkrSXDTOPKQF2398-42-34 12:50:00 Test Item Value Reference Range Interpretation Comments Alk Phos (test code = Alk Phos) 96 39-136 [facility] TexasZvephxyXCCCZLUSN3178-52-19 12:50:00 Test Item Value Reference Range Interpretation Comments Bili Total (test code = Bili Total) 0.2 0.2-1.3 [place] 922233-02-21 12:50:00 Test Item Value Reference Range Interpretation Comments Bili Direct (test code = Bili Direct) no gt <=0.3 [facility] TexasLcgxiobDOYNDJGMV1692-13-60 12:50:00 Test Item Value Reference Range Interpretation Comments Bili Indirect (test code Unable to Calculate <=1.0 = Bili Indirect) [facility] TexasXkxgzdsSRCBIRIYZ4595-87-23 12:50:00 Test Item Value Reference Range Interpretation Comments HS Troponin I (test code = HS Troponin 15 I) [facility] TexasVkvlofbKIYJBAFAV3780-84-46 12:50:00 Test Item Value Reference Range Interpretation Comments pH Justin (test code = pH Justin) 7.35 1 7.28-7.42 [place] [address]-02-21 12:50:00 Test Item Value Reference Range Interpretation Comments pCO2 Justin (test code = pCO2 Justin) 55 38-52 [place] 922233-02-21 12:50:00 Test Item Value Reference Range Interpretation Comments pO2 Justin (test code = pO2 Justin) 43 20-49 [place] [address]-02-21 12:50:00 Test Item Value Reference Range Interpretation Comments HCO3 Justin (test code = HCO3 Justin) 30 22-26 [place] 922233-02-21 12:50:00 Test Item Value Reference Range Interpretation Comments BE Justin (test code = BE Justin) 3 -2-2 [place] 922233-02-21 12:50:00 Test Item Value Reference Range Interpretation Comments O2 Sat Justin (calc) (test code = O2 Sat 75.9 40.0-70.0 Justin (calc)) [facility] TexasGtsegiiLHIUFFFGQ7925-12-50 12:50:00 Test Item Value Reference Range Interpretation Comments Temp Justin (test code = Temp Justin) 37.0 [place] 963423-02-21 12:50:00 Test Item Value Reference Range Interpretation Comments ACT (TEG) Rapid (test code = ACT (TEG) 113 s 86-118 Rapid) [place] 963423-02-21 12:50:00 Test Item Value Reference Range Interpretation Comments Split Point Rapid (test code = Split 0.6 min Point Rapid) [place] 963423-02-21 12:50:00 Test Item Value Reference Range Interpretation Comments R-time Rapid (test code = R-time 0.7 min 0.4-0.7 Rapid) [facility]UMC2279[facility]72 12:50:00 Test Item Value Reference Range Interpretation Comments K-time Rapid (test code = K-time 1.1 min 0.6-2.3 Rapid) [place] 963423-02-21 12:50:00 Test Item Value Reference Range Interpretation Comments Angle Rapid (test code = Angle 78 degrees 64-80 Rapid) [place] [address]-02-21 12:50:00 Test Item Value Reference Range Interpretation Comments Max Amplitude Rapid (test code = Max 65 mm 52-71 Amplitude Rapid) [place] [address]-02-21 12:50:00 Test Item Value Reference Range Interpretation Comments G-value Rapid (test code = G-value 9.2 5.0-11.6 Rapid) [place] [address]-02-21 12:50:00 Test Item Value Reference Range Interpretation Comments Estimated % Lysis Rapid (test code = 0.0 <=7.5 Estimated % Lysis Rapid) [place] [address]-02-21 12:50:00 Test Item Value Reference Range Interpretation Comments Plt Morph (test code = See Note 1(11/21/22 Plt Morph) 6:50 AM) [place] [address]-02-21 12:50:00 Test Item Value Reference Range Interpretation Comments Stomatocyte (test code = Stomatocyte) slight [place] 963423-02-21 12:50:00 Test Item Value Reference Range Interpretation Comments WBC X 10x3 (test code = WBC X 10x3) 8.7 3.7-10.4 [place] [address]-02-21 12:50:00 Test Item Value Reference Range Interpretation Comments RBC X 10x6 (test code = RBC X 10x6) 3.56 4.20-5.40 [place] [address]-02-21 12:50:00 Test Item Value Reference Range Interpretation Comments Hgb (test code = Hgb) 10.4 12.0-16.0 [place] [address]-02-21 12:50:00 Test Item Value Reference Range Interpretation Comments Hct (test code = Hct) 32.3 36.0-48.0 [place] [address]-02-21 12:50:00 Test Item Value Reference Range Interpretation Comments MCV (test code = MCV) 90.8 80.0-98.0 [place] [address]-02-21 12:50:00 Test Item Value Reference Range Interpretation Comments MCH (test code = MCH) 29.3 pg 27.0-31.0 [place] 963423-02-21 12:50:00 Test Item Value Reference Range Interpretation Comments MCHC (test code = MCHC) 32.2 32.0-36.0 [place] 963423-02-21 12:50:00 Test Item Value Reference Range Interpretation Comments RDW (test code = RDW) 13.7 11.5-14.5 [place] 963423-02-21 12:50:00 Test Item Value Reference Range Interpretation Comments Platelet (test code = Platelet) 137 133-450 [place] 963423-02-21 12:50:00 Test Item Value Reference Range Interpretation Comments MPV (test code = MPV) 7.9 7.4-10.4 [place] [address]-02-21 12:50:00 Test Item Value Reference Range Interpretation Comments ACT (TEG) Rapid (test code = ACT (TEG) 113 s 86-118 Rapid) [place] 963423-02-21 12:50:00 Test Item Value Reference Range Interpretation Comments Split Point Rapid (test code = Split 0.6 min Point Rapid) [place] 963423-02-21 12:50:00 Test Item Value Reference Range Interpretation Comments R-time Rapid (test code = R-time 0.7 min 0.4-0.7 Rapid) [place] [address]-02-21 12:50:00 Test Item Value Reference Range Interpretation Comments K-time Rapid (test code = K-time 1.1 min 0.6-2.3 Rapid) [place] [address]-02-21 12:50:00 Test Item Value Reference Range Interpretation Comments Angle Rapid (test code = Angle 78 degrees 64-80 Rapid) [place] [address]-02-21 12:50:00 Test Item Value Reference Range Interpretation Comments Max Amplitude Rapid (test code = Max 65 mm 52-71 Amplitude Rapid) [place] [address]-02-21 12:50:00 Test Item Value Reference Range Interpretation Comments G-value Rapid (test code = G-value 9.2 5.0-11.6 Rapid) [place] 963423-02-21 12:50:00 Test Item Value Reference Range Interpretation Comments Estimated % Lysis Rapid (test code = 0.0 <=7.5 Estimated % Lysis Rapid) [place] 963423-02-21 12:50:00 Test Item Value Reference Range Interpretation Comments Plt Morph (test code = See Note 1(11/21/22 Plt Morph) 6:50 AM) [place] [address]-02-21 12:50:00 Test Item Value Reference Range Interpretation Comments Segs (test code = Segs) 64.1 45.0-75.0 [place] [address]-02-21 12:50:00 Test Item Value Reference Range Interpretation Comments Lymphocytes (test code = Lymphocytes) 22.0 20.0-40.0 [place] [address]-02-21 12:50:00 Test Item Value Reference Range Interpretation Comments Monocytes (test code = Monocytes) 8.3 2.0-12.0 [place] [address]-02-21 12:50:00 Test Item Value Reference Range Interpretation Comments Eosinophils (test code = Eosinophils) 4.7 <=4.0 [place] 963423-02-21 12:50:00 Test Item Value Reference Range Interpretation Comments Basophils (test code = Basophils) 0.9 <=1.0 [place] [address]-02-21 12:50:00 Test Item Value Reference Range Interpretation Comments Neutrophils # (test code = Neutrophils 5.6 1.5-8.1 #) [place] 963423-02-21 12:50:00 Test Item Value Reference Range Interpretation Comments Lymphocytes # (test code = Lymphocytes 1.9 1.0-5.5 #) [place] 963423-02-21 12:50:00 Test Item Value Reference Range Interpretation Comments Monocytes # (test code = Monocytes #) 0.7 <=0.8 [place] [address]-02-21 12:50:00 Test Item Value Reference Range Interpretation Comments Eosinophils # (test code = Eosinophils 0.4 <=0.5 #) [place] [address]-02-21 12:50:00 Test Item Value Reference Range Interpretation Comments Basophils # (test code = Basophils #) 0.1 <=0.2 [place] [address]-02-21 12:50:00 Test Item Value Reference Range Interpretation Comments Stomatocyte (test code = Stomatocyte) slight [place] [id number] 12:50:00 Test Item Value Reference Range Interpretation Comments Ethanol Lvl (test code = Ethanol Lvl) no gt [place] [id number] 12:50:00 Test Item Value Reference Range Interpretation Comments Etoh (%) (test code = Etoh (%)) no gt [facility]at[facility]OM[facility]88[facility] 12:25:01 Test Item Value Reference Range Interpretation [...] arthroplasty and resurfacing of the patella.UT SECTION: [place] [id number] 12:25:01 Test Item Value Reference Range Interpretation [...] arthroplasty and resur[facility] the patella.[facility] Test Item Value Reference Range [...] arthroplasty and resurfacing of the patella.[facility] 12:25:01 Test Item Value Reference Range [...] arthroplasty and resurfacing of the patella.UT SECTION: [place] [id number] 12:25:01 Test Item Value Reference Range Interpretation [...] arthroplasty and resurfacing of the patella.[facility] 12:25:01 Test Item Value Reference Range [...] arthroplasty and resurfacing of the patella.UT SECTION: [place] [id number] 12:25:01 Test Item Value Reference Range Interpretation [...] arthroplasty and resurfacing of the patella.UT SECTION: [place] [id number] 12:25:01 Test Item Value Reference Range Interpretation [...] arthroplasty and resurfacing of the patella.UT SECTION: [place] [id number] 12:25:01 Test Item Value Reference Range Interpretation [...] arthroplasty and resurfacing of the patella.[facility] 12:25:01 Test Item Value Reference Range [...] arthroplasty and resurfacing of the patella.[facility] 12:25:01 Test Item Value Reference Range [...] arthroplasty and resurfacing of the patella.[facility] 12:25:01 Test Item Value Reference Range [...] arthroplasty and resurfacing of the patella.[facility] 12:25:01 Test Item Value Reference Range [...] arthroplasty and resurfacing of the patella.UT SECTION: [place] [id number] 11:23:44 Test Item Value Reference Range Interpretation [...] along the tentorium. No significant midline shift. [facility] HospitalPrumhenTLFLWD7478-16-99 11:23:44 Test Item Value Reference Range Interpretation [...] along the tentorium. No significant midline shift. [facility] HospitalLiqqdlcTPOURU1100-87-69 11:23:44 Test Item Value Reference Range Interpretation [...] along the tentorium. No significant midline shift. [facility] HospitalGkbkumuZDHCMJ4769-69-63 11:23:44 Test Item Value Reference Range Interpretation [...] along the tentorium. No significant midline shift. [facility] HospitalSmfxmrhTZJPLC9552-14-22 11:23:44 Test Item Value Reference Range Interpretation [...] along the tentorium. No significant midline shift. [place] 60059023-02-21 11:23:44 Test Item Value Reference Range Interpretation [...] along the tentorium. No significant midline shift. [facility] HospitalAaczmyvUCQDTT4872-22-99 11:23:44 Test Item Value Reference Range Interpretation [...] along the tentorium. No significant midline shift. [facility] HospitalGfyjyzzOIHEXS6526-69-76 11:23:44 Test Item Value Reference Range Interpretation [...] along the tentorium. No significant midline shift. [facility] HospitalAddcjsaCUQXQP8204-68-70 11:23:44 Test Item Value Reference Range Interpretation [...] along the tentorium. No significant midline shift. [facility] HospitalLbnyhbcBLECMW8144-22-68 11:23:44 Test Item Value Reference Range Interpretation [...] along the tentorium. No significant midline shift. [facility] HospitalEqsvjeqPSUXGQ9113-81-41 11:23:44 Test Item Value Reference Range Interpretation [...] along the tentorium. No significant midline shift. [facility] HospitalOutkwujRTANHL4854-71-45 11:23:44 Test Item Value Reference Range Interpretation [...] along the tentorium. No significant midline shift. [facility] HospitalNmsevpdVAPPFW5396-86-61 11:23:44 Test Item Value Reference Range Interpretation [...] along the tentorium. No significant midline shift. [facility]2020-12-07 10:24:00 Test Item Value Reference Range Interpretation Comments Glucose Lvl (test code = Glucose Lvl) [facility]2020-12-07 10:24:00 Test Item Value Reference Range Interpretation Comments BUN (test code = BUN) 04-21 [facility]2020-12-07 10:24:00 Test Item Value Reference Range Interpretation Comments Creatinine Lvl (test code = Creatinine 1.82 0.50-1.40 Lvl) [facility]2020-12-07 10:24:00 Test Item Value Reference Range Interpretation Comments Sodium Lvl (test code = Sodium Lvl) 139 135-145 [facility]2020-12-07 10:24:00 Test Item Value Reference Range Interpretation Comments Potassium Lvl (test code = Potassium 4.2 3.5-5.1 Lvl) [facility]2020-12-07 10:24:00 Test Item Value Reference Range Interpretation Comments Chloride Lvl (test code = Chloride Lvl) 105 95-109 [facility]2020-12-07 10:24:00 Test Item Value Reference Range Interpretation Comments CO2 (test code = CO2) 28 24-32 [facility]2020-12-07 10:24:00 Test Item Value Reference Range Interpretation Comments Calcium Lvl (test code = Calcium Lvl) 8.2 8.5-10.5 [facility]2020-12-07 10:24:00 Test Item Value Reference Range Interpretation Comments AGAP (test code = AGAP) 10.2 10.0-20.0 [facility]2020-12-07 10:24:00 Test Item Value Reference Range Interpretation Comments Glucose Lvl (test code = Glucose Lvl) - [facility]2020-12-07 10:24:00 Test Item Value Reference Range Interpretation Comments BUN (test code = BUN) 04-21 [facility]2020-12-07 10:24:00 Test Item Value Reference Range Interpretation Comments Creatinine Lvl (test code = Creatinine 1.82 0.50-1.40 Lvl) [facility]2020-12-07 10:24:00 Test Item Value Reference Range Interpretation Comments Sodium Lvl (test code = Sodium Lvl) 139 135-145 [place] 457350-12-07 10:24:00 Test Item Value Reference Range Interpretation Comments Potassium Lvl (test code = Potassium 4.2 3.5-5.1 Lvl) [facility]2020-12-07 10:24:00 Test Item Value Reference Range Interpretation Comments eGFR (test code = eGFR) 26 [facility]2020-12-07 10:24:00 Test Item Value Reference Range Interpretation Comments Chloride Lvl (test code = Chloride Lvl) 105 95-109 [facility]2020-12-07 10:24:00 Test Item Value Reference Range Interpretation Comments CO2 (test code = CO2) 28 24-32 [place] 457350-12-07 10:24:00 Test Item Value Reference Range Interpretation Comments Calcium Lvl (test code = Calcium Lvl) 8.2 8.5-10.5 [facility]2020-12-07 10:24:00 Test Item Value Reference Range Interpretation Comments AGAP (test code = AGAP) 10.2 10.0-20.0 [facility]2020-12-07 10:24:00 Test Item Value Reference Range Interpretation Comments eGFR (test code = eGFR) 26 [place] 963420-12-07 10:24:00 Test Item Value Reference Range Interpretation Comments Segs (test code = Segs) 70.6 45.0-75.0 [place] [address]-12-07 10:24:00 Test Item Value Reference Range Interpretation Comments Lymphocytes (test code = Lymphocytes) 13.2 20.0-40.0 [place] 963420-12-07 10:24:00 Test Item Value Reference Range Interpretation Comments Monocytes (test code = Monocytes) 10.9 2.0-12.0 [place] 963420-12-07 10:24:00 Test Item Value Reference Range Interpretation Comments Eosinophils (test code = 4.6 See_Comment [A utomated message] The Eosinophils) system which ge nerated this result tra nsmitted reference range : <=4.0. The reference r christiano was not used to int erpret this result as normal/abnormal . [facility]QiphgmwBHMQIWHAAM4103-65-25 10:24:00 Test Item Value Reference Range Interpretation Comments Basophils (test code = 0.7 See_Comment [Aut omated message] The Basophils) system which ge nerated this result tra nsmitted reference range : <=1.0. The reference r christiano was not used to int erpret this result as normal/abnormal . [facility] HospitalDyjbhpcEMXRDTNLVQ6753-04-36 10:24:00 Test Item Value Reference Range Interpretation Comments Segs (test code = Segs) 70.6 45.0-75.0 [facility] HospitalDukezedVTYPORVEDY8735-63-11 10:24:00 Test Item Value Reference Range Interpretation Comments Neutrophils # (test code = Neutrophils 5.3 1.5-8.1 #) [facility] HospitalNnzzyqoEPWNKKEUYO9103-31-31 10:24:00 Test Item Value Reference Range Interpretation Comments Lymphocytes # (test code = Lymphocytes 1.0 1.0-5.5 #) [facility] HospitalQgzdqzmOVUPFVTKTP9203-79-80 10:24:00 Test Item Value Reference Range Interpretation Comments Monocytes # (test code 0.8 See_Comment [Aut omated message] The = Monocytes #) system which generated this result tra nsmitted reference range : <=0.8. The reference r christiano was not used to int erpret this result as normal/abnormal . [facility] HospitalIimhdnpMNJNOSRHPO6967-09-56 10:24:00 Test Item Value Reference Range Interpretation Comments Eosinophils # (test code 0.3 See_Comment [A utomated message] The = Eosinophils #) system whic h generated this result tra nsmitted reference range : <=0.5. The reference r christiano was not used to int erpret this result as normal/abnormal . [facility] HospitalTzfidfyVZQRNGNXVP1916-78-25 10:24:00 Test Item Value Reference Range Interpretation Comments Basophils # (test code 0.1 See_Comment [Aut omated message] The = Basophils #) system which generated this result tra nsmitted reference range : <=0.2. The reference r christiano was not used to int erpret this result as normal/abnormal . [facility] HospitalWpcmygrSWIDYKMJVJ6248-37-81 10:24:00 Test Item Value Reference Range Interpretation Comments WBC (test code = WBC) 7.5 3.7-10.4 [facility] HospitalFfcnnrxYWJKOHFMFJ4242-47-28 10:24:00 Test Item Value Reference Range Interpretation Comments RBC (test code = RBC) 3.85 4.20-5.40 [facility] HospitalMxegebzELVBUGELMA1968-41-59 10:24:00 Test Item Value Reference Range Interpretation Comments Hgb (test code = Hgb) 10.6 12.0-16.0 [place] 963420-12-07 10:24:00 Test Item Value Reference Range Interpretation Comments Hct (test code = Hct) 32.1 36.0-48.0 [facility] HospitalGupwhwjGVSKBSQLMC0591-57-42 10:24:00 Test Item Value Reference Range Interpretation Comments MCV (test code = MCV) 83.5 80.0-98.0 [facility] HospitalLoavyplHUNVMDYPOX2557-48-33 10:24:00 Test Item Value Reference Range Interpretation Comments Lymphocytes (test code = Lymphocytes) 13.2 20.0-40.0 [facility] HospitalHxapmguVTQDNVKHKC2392-02-53 10:24:00 Test Item Value Reference Range Interpretation Comments MCH (test code = MCH) 27.7 pg 27.0-31.0 [facility] HospitalZslkmoxOHEQYWSCZQ1428-21-62 10:24:00 Test Item Value Reference Range Interpretation Comments MCHC (test code = MCHC) 33.1 32.0-36.0 [facility] HospitalDwmnfokKZBVHBPMDK1763-79-63 10:24:00 Test Item Value Reference Range Interpretation Comments RDW (test code = RDW) 16.8 11.5-14.5 [facility] HospitalNxcohrtBXVREDSPMH1071-04-04 10:24:00 Test Item Value Reference Range Interpretation Comments Platelet (test code = Platelet) 185 133-450 [facility] HospitalEjyrdelYWDHJCLTUB5546-00-24 10:24:00 Test Item Value Reference Range Interpretation Comments MPV (test code = MPV) 8.4 7.4-10.4 [facility] HospitalGsyddetTLQAIRQDDK9238-57-13 10:24:00 Test Item Value Reference Range Interpretation Comments Monocytes (test code = Monocytes) 10.9 2.0-12.0 [facility] HospitalShaytflJMGHVJMKYJ0681-94-79 10:24:00 Test Item Value Reference Range Interpretation Comments Eosinophils (test code = 4.6 See_Comment [A utomated message] The Eosinophils) system which ge nerated this result tra nsmitted reference range : <=4.0. The reference r christiano was not used to int erpret this result as normal/abnormal . [facility] HospitalLspfbsrGCXGJHUXFY0337-69-46 10:24:00 Test Item Value Reference Range Interpretation Comments Basophils (test code = 0.7 See_Comment [Aut omated message] The Basophils) system which ge nerated this result tra nsmitted reference range : <=1.0. The reference r christiano was not used to int erpret this result as normal/abnormal . [facility] HospitalUfjudrcCWARTLXWLA5181-30-53 10:24:00 Test Item Value Reference Range Interpretation Comments Neutrophils # (test code = Neutrophils 5.3 1.5-8.1 #) [facility] HospitalIsslogaNERZAZMKNX9439-40-58 10:24:00 Test Item Value Reference Range Interpretation Comments Lymphocytes # (test code = Lymphocytes 1.0 1.0-5.5 #) [facility] HospitalPimshdrVCRHTURNXM8795-89-26 10:24:00 Test Item Value Reference Range Interpretation Comments Monocytes # (test code 0.8 See_Comment [Aut omated message] The = Monocytes #) system which generated this result tra nsmitted reference range : <=0.8. The reference r christiano was not used to int erpret this result as normal/abnormal . [facility] HospitalPlogfteQJYKJRVZGA6366-89-53 10:24:00 Test Item Value Reference Range Interpretation Comments Eosinophils # (test code 0.3 See_Comment [A utomated message] The = Eosinophils #) system whic h generated this result tra nsmitted reference range : <=0.5. The reference r christiano was not used to int erpret this result as normal/abnormal . [facility] HospitalOvpntbsLPCLSDQDVK6099-19-84 10:24:00 Test Item Value Reference Range Interpretation Comments Basophils # (test code 0.1 See_Comment [Aut omated message] The = Basophils #) system which generated this result tra nsmitted reference range : <=0.2. The reference r christiano was not used to int erpret this result as normal/abnormal . [facility] HospitalQgpfazsRTHCEJHVWR8918-28-96 10:24:00 Test Item Value Reference Range Interpretation Comments WBC (test code = WBC) 7.5 3.7-10.4 [facility] HospitalTzuyrzgHQXQSVBCST4839-95-21 10:24:00 Test Item Value Reference Range Interpretation Comments RBC (test code = RBC) 3.85 4.20-5.40 [facility] HospitalZonkndaFPIDAZAEXH7472-24-20 10:24:00 Test Item Value Reference Range Interpretation Comments Hgb (test code = Hgb) 10.6 12.0-16.0 [facility] HospitalPxanovvOUANKUUMFG2061-83-50 10:24:00 Test Item Value Reference Range Interpretation Comments Hct (test code = Hct) 32.1 36.0-48.0 [facility] HospitalOngaouhCJGXLUVLWP0921-34-78 10:24:00 Test Item Value Reference Range Interpretation Comments MCV (test code = MCV) 83.5 80.0-98.0 [facility] HospitalUwnwgcxDUDGCKBGRR6164-62-12 10:24:00 Test Item Value Reference Range Interpretation Comments MCH (test code = MCH) 27.7 pg 27.0-31.0 [facility] HospitalKxeokrlGDFSBJLZOO1104-59-31 10:24:00 Test Item Value Reference Range Interpretation Comments MCHC (test code = MCHC) 33.1 32.0-36.0 [facility] HospitalIoyndmiFUONFROWZS0339-32-44 10:24:00 Test Item Value Reference Range Interpretation Comments RDW (test code = RDW) 16.8 11.5-14.5 [facility] HospitalWppjdhrHZKJXFDENX3949-13-97 10:24:00 Test Item Value Reference Range Interpretation Comments Platelet (test code = Platelet) 185 133-450 [facility] HospitalXmozuazDOIIKMPRMK6403-46-79 10:24:00 Test Item Value Reference Range Interpretation Comments MPV (test code = MPV) 8.4 7.4-10.4 [facility]2020-12-07 10:24:00 Test Item Value Reference Range Interpretation Comments Glucose Lvl (test code = Glucose Lvl) 66 70-99 [facility]2020-12-07 10:24:00 Test Item Value Reference Range Interpretation Comments BUN (test code = BUN) 19 7-22 [facility]2020-12-07 10:24:00 Test Item Value Reference Range Interpretation Comments Creatinine Lvl (test code = Creatinine 1.82 0.50-1.40 Lvl) [facility]2020-12-07 10:24:00 Test Item Value Reference Range Interpretation Comments Sodium Lvl (test code = Sodium Lvl) 139 135-145 [place] 457350-12-07 10:24:00 Test Item Value Reference Range Interpretation Comments Potassium Lvl (test code = Potassium 4.2 3.5-5.1 Lvl) [place] 457350-12-07 10:24:00 Test Item Value Reference Range Interpretation Comments Chloride Lvl (test code = Chloride Lvl) 105 95-109 [facility]2020-12-07 10:24:00 Test Item Value Reference Range Interpretation Comments CO2 (test code = CO2) 28 24-32 [place] 457350-12-07 10:24:00 Test Item Value Reference Range Interpretation Comments Calcium Lvl (test code = Calcium Lvl) 8.2 8.5-10.5 [facility]2020-12-07 10:24:00 Test Item Value Reference Range Interpretation Comments AGAP (test code = AGAP) 10.2 10.0-20.0 [place] 457350-12-07 10:24:00 Test Item Value Reference Range Interpretation Comments eGFR (test code = eGFR) 26 [facility] HospitalPyyedziPZCMMAPUCD3730-26-78 10:24:00 Test Item Value Reference Range Interpretation Comments Segs (test code = Segs) 70.6 45.0-75.0 [facility] HospitalCxtpyovTQQYTNCDYB1244-86-98 10:24:00 Test Item Value Reference Range Interpretation Comments Lymphocytes (test code = Lymphocytes) 13.2 20.0-40.0 [place] 963420-12-07 10:24:00 Test Item Value Reference Range Interpretation Comments Monocytes (test code = Monocytes) 10.9 2.0-12.0 [place] [address]-12-07 10:24:00 Test Item Value Reference Range Interpretation Comments Eosinophils (test code = 4.6 See_Comment [A utomated message] The Eosinophils) system which ge nerated this result tra nsmitted reference range : <=4.0. The reference r christiano was not used to int erpret this result as normal/abnormal . [facility] HospitalPlbemsuKGDUFJLZMQ2312-10-95 10:24:00 Test Item Value Reference Range Interpretation Comments Basophils (test code = 0.7 See_Comment [Aut omated message] The Basophils) system which ge nerated this result tra nsmitted reference range : <=1.0. The reference r christiano was not used to int erpret this result as normal/abnormal . [facility] HospitalOsarzuyQEHDRKRPJH3470-51-57 10:24:00 Test Item Value Reference Range Interpretation Comments Neutrophils # (test code = Neutrophils 5.3 1.5-8.1 #) [facility] HospitalLsppxprWMDNHXIOTV4670-25-66 10:24:00 Test Item Value Reference Range Interpretation Comments Lymphocytes # (test code = Lymphocytes 1.0 1.0-5.5 #) [facility] HospitalCxnxlzkAJXKKIIBLV7317-02-88 10:24:00 Test Item Value Reference Range Interpretation Comments Monocytes # (test code 0.8 See_Comment [Aut omated message] The = Monocytes #) system which generated this result tra nsmitted reference range : <=0.8. The reference r christiano was not used to int erpret this result as normal/abnormal . [facility] HospitalLdjxcypKAITKVGMRT8726-74-03 10:24:00 Test Item Value Reference Range Interpretation Comments Eosinophils # (test code 0.3 See_Comment [A utomated message] The = Eosinophils #) system whic h generated this result tra nsmitted reference range : <=0.5. The reference r christiano was not used to int erpret this result as normal/abnormal . [facility] HospitalCjwbsvkZCHMGUMJUW9336-40-00 10:24:00 Test Item Value Reference Range Interpretation Comments Basophils # (test code 0.1 See_Comment [Aut omated message] The = Basophils #) system which generated this result tra nsmitted reference range : <=0.2. The reference r christiano was not used to int erpret this result as normal/abnormal . [facility] HospitalVcshxcgDRCLPCBQCP5907-19-19 10:24:00 Test Item Value Reference Range Interpretation Comments WBC (test code = WBC) 7.5 3.7-10.4 [facility] HospitalFgessveHYAJJJOXCX0924-65-27 10:24:00 Test Item Value Reference Range Interpretation Comments RBC (test code = RBC) 3.85 4.20-5.40 [place] 963420-12-07 10:24:00 Test Item Value Reference Range Interpretation Comments Hgb (test code = Hgb) 10.6 12.0-16.0 [place] 963420-12-07 10:24:00 Test Item Value Reference Range Interpretation Comments Hct (test code = Hct) 32.1 36.0-48.0 [place] 963420-12-07 10:24:00 Test Item Value Reference Range Interpretation Comments MCV (test code = MCV) 83.5 80.0-98.0 [place] [address]-12-07 10:24:00 Test Item Value Reference Range Interpretation Comments MCH (test code = MCH) 27.7 pg 27.0-31.0 [place] [address]-12-07 10:24:00 Test Item Value Reference Range Interpretation Comments MCHC (test code = MCHC) 33.1 32.0-36.0 [place] 963420-12-07 10:24:00 Test Item Value Reference Range Interpretation Comments RDW (test code = RDW) 16.8 11.5-14.5 [place] [address]-12-07 10:24:00 Test Item Value Reference Range Interpretation Comments Platelet (test code = Platelet) 185 133-450 [facility] HospitalUroyaacNWPMOFSVDL9252-31-95 10:24:00 Test Item Value Reference Range Interpretation Comments MPV (test code = MPV) 8.4 7.4-10.4 [facility]2020-12-07 10:24:00 Test Item Value Reference Range Interpretation Comments Glucose Lvl (test code = Glucose Lvl) 66 70-99 [facility]2020-12-07 10:24:00 Test Item Value Reference Range Interpretation Comments BUN (test code = BUN) 19 7-22 [facility]2020-12-07 10:24:00 Test Item Value Reference Range Interpretation Comments Creatinine Lvl (test code = Creatinine 1.82 0.50-1.40 Lvl) [facility]2020-12-07 10:24:00 Test Item Value Reference Range Interpretation Comments Sodium Lvl (test code = Sodium Lvl) 139 135-145 [facility]2020-12-07 10:24:00 Test Item Value Reference Range Interpretation Comments Potassium Lvl (test code = Potassium 4.2 3.5-5.1 Lvl) [facility]2020-12-07 10:24:00 Test Item Value Reference Range Interpretation Comments Chloride Lvl (test code = Chloride Lvl) 105 95-109 [facility]2020-12-07 10:24:00 Test Item Value Reference Range Interpretation Comments CO2 (test code = CO2) 28 24-32 [place] 457350-12-07 10:24:00 Test Item Value Reference Range Interpretation Comments Calcium Lvl (test code = Calcium Lvl) 8.2 8.5-10.5 [place] 457350-12-07 10:24:00 Test Item Value Reference Range Interpretation Comments AGAP (test code = AGAP) 10.2 10.0-20.0 [place] 457350-12-07 10:24:00 Test Item Value Reference Range Interpretation Comments eGFR (test code = eGFR) 26 [facility] HospitalTmraiorQUWEMPWEVS9862-29-39 10:24:00 Test Item Value Reference Range Interpretation Comments Segs (test code = Segs) 70.6 45.0-75.0 [place] 963420-12-07 10:24:00 Test Item Value Reference Range Interpretation Comments Lymphocytes (test code = Lymphocytes) 13.2 20.0-40.0 [place] 963420-12-07 10:24:00 Test Item Value Reference Range Interpretation Comments Monocytes (test code = Monocytes) 10.9 2.0-12.0 [place] 963420-12-07 10:24:00 Test Item Value Reference Range Interpretation Comments Eosinophils (test code = 4.6 See_Comment [A utomated message] The Eosinophils) system which ge nerated this result tra nsmitted reference range : <=4.0. The reference r christiano was not used to int erpret this result as normal/abnormal . [facility] HospitalDkjririITRUXHAPYL0927-93-63 10:24:00 Test Item Value Reference Range Interpretation Comments Basophils (test code = 0.7 See_Comment [Aut omated message] The Basophils) system which ge nerated this result tra nsmitted reference range : <=1.0. The reference r christiano was not used to int erpret this result as normal/abnormal . [place] 963420-12-07 10:24:00 Test Item Value Reference Range Interpretation Comments Neutrophils # (test code = Neutrophils 5.3 1.5-8.1 #) [facility] HospitalLpdkeegPDCFNNXPHY5053-50-39 10:24:00 Test Item Value Reference Range Interpretation Comments Lymphocytes # (test code = Lymphocytes 1.0 1.0-5.5 #) [facility] HospitalTpvohkfKCZUGJFZDN8362-15-69 10:24:00 Test Item Value Reference Range Interpretation Comments Monocytes # (test code 0.8 See_Comment [Aut omated message] The = Monocytes #) system which generated this result tra nsmitted reference range : <=0.8. The reference r christiano was not used to int erpret this result as normal/abnormal . [facility] HospitalBudvbujPIIGQMYNAR0013-58-14 10:24:00 Test Item Value Reference Range Interpretation Comments Eosinophils # (test code 0.3 See_Comment [A utomated message] The = Eosinophils #) system whic h generated this result tra nsmitted reference range : <=0.5. The reference r christiano was not used to int erpret this result as normal/abnormal . [facility] HospitalPsqroebXKVRGNSWSB3173-22-29 10:24:00 Test Item Value Reference Range Interpretation Comments Basophils # (test code 0.1 See_Comment [Aut omated message] The = Basophils #) system which generated this result tra nsmitted reference range : <=0.2. The reference r christiano was not used to int erpret this result as normal/abnormal . [facility] HospitalHuparluHDMCVBIWQV6026-94-80 10:24:00 Test Item Value Reference Range Interpretation Comments WBC (test code = WBC) 7.5 3.7-10.4 [facility] HospitalDdyitghSWJSAYNWAN9547-46-38 10:24:00 Test Item Value Reference Range Interpretation Comments RBC (test code = RBC) 3.85 4.20-5.40 [place] 963420-12-07 10:24:00 Test Item Value Reference Range Interpretation Comments Hgb (test code = Hgb) 10.6 12.0-16.0 [place] 963420-12-07 10:24:00 Test Item Value Reference Range Interpretation Comments Hct (test code = Hct) 32.1 36.0-48.0 [place] 963420-12-07 10:24:00 Test Item Value Reference Range Interpretation Comments MCV (test code = MCV) 83.5 80.0-98.0 [place] 963420-12-07 10:24:00 Test Item Value Reference Range Interpretation Comments MCH (test code = MCH) 27.7 pg 27.0-31.0 [facility] HospitalOujxronPVJJXHAYHH8407-22-00 10:24:00 Test Item Value Reference Range Interpretation Comments MCHC (test code = MCHC) 33.1 32.0-36.0 [facility] HospitalKglxgxjRFZTBXIGZA2825-36-41 10:24:00 Test Item Value Reference Range Interpretation Comments RDW (test code = RDW) 16.8 11.5-14.5 [facility] HospitalKgmnlfbEJLTZTQLCB5515-19-35 10:24:00 Test Item Value Reference Range Interpretation Comments Platelet (test code = Platelet) 185 133-450 [facility] HospitalVqookbeUJNEFWDIOD9750-70-94 10:24:00 Test Item Value Reference Range Interpretation Comments MPV (test code = MPV) 8.4 7.4-10.4 [facility]2020-12-07 10:24:00 Test Item Value Reference Range Interpretation Comments Glucose Lvl (test code = Glucose Lvl) 66 70-99 [facility]2020-12-07 10:24:00 Test Item Value Reference Range Interpretation Comments BUN (test code = BUN) 19 7-22 [facility]2020-12-07 10:24:00 Test Item Value Reference Range Interpretation Comments Creatinine Lvl (test code = Creatinine 1.82 0.50-1.40 Lvl) [facility]2020-12-07 10:24:00 Test Item Value Reference Range Interpretation Comments Sodium Lvl (test code = Sodium Lvl) 139 135-145 [facility]2020-12-07 10:24:00 Test Item Value Reference Range Interpretation Comments Potassium Lvl (test code = Potassium 4.2 3.5-5.1 Lvl) [facility]2020-12-07 10:24:00 Test Item Value Reference Range Interpretation Comments Chloride Lvl (test code = Chloride Lvl) 105 95-109 [facility]2020-12-07 10:24:00 Test Item Value Reference Range Interpretation Comments CO2 (test code = CO2) 28 24-32 [facility]2020-12-07 10:24:00 Test Item Value Reference Range Interpretation Comments Calcium Lvl (test code = Calcium Lvl) 8.2 8.5-10.5 [facility]2020-12-07 10:24:00 Test Item Value Reference Range Interpretation Comments AGAP (test code = AGAP) 10.2 10.0-20.0 [facility]2020-12-07 10:24:00 Test Item Value Reference Range Interpretation Comments eGFR (test code = eGFR) 26 [facility] HospitalIukwqbnTQSAVQFGWO8875-30-81 10:24:00 Test Item Value Reference Range Interpretation Comments Segs (test code = Segs) 70.6 45.0-75.0 [place] 963420-12-07 10:24:00 Test Item Value Reference Range Interpretation Comments Lymphocytes (test code = Lymphocytes) 13.2 20.0-40.0 [place] 963420-12-07 10:24:00 Test Item Value Reference Range Interpretation Comments Monocytes (test code = Monocytes) 10.9 2.0-12.0 [facility] HospitalJnijvktYZJZWCLOOA7454-05-98 10:24:00 Test Item Value Reference Range Interpretation Comments Eosinophils (test code = 4.6 See_Comment [A utomated message] The Eosinophils) system which ge nerated this result tra nsmitted reference range : <=4.0. The reference r christiano was not used to int erpret this result as normal/abnormal . [facility] HospitalStegoctTYSUTMXHLB2555-35-90 10:24:00 Test Item Value Reference Range Interpretation Comments Basophils (test code = 0.7 See_Comment [Aut omated message] The Basophils) system which ge nerated this result tra nsmitted reference range : <=1.0. The reference r christiano was not used to int erpret this result as normal/abnormal . [facility] HospitalPlktirsDAGPTUDIYO9615-50-10 10:24:00 Test Item Value Reference Range Interpretation Comments Neutrophils # (test code = Neutrophils 5.3 1.5-8.1 #) [place] 963420-12-07 10:24:00 Test Item Value Reference Range Interpretation Comments Lymphocytes # (test code = Lymphocytes 1.0 1.0-5.5 #) [place] [address]-12-07 10:24:00 Test Item Value Reference Range Interpretation Comments Monocytes # (test code 0.8 See_Comment [Aut omated message] The = Monocytes #) system which generated this result tra nsmitted reference range : <=0.8. The reference r christiano was not used to int erpret this result as normal/abnormal . [facility] HospitalTjcjeayOOPKIEOXUJ4074-19-11 10:24:00 Test Item Value Reference Range Interpretation Comments Eosinophils # (test code 0.3 See_Comment [A utomated message] The = Eosinophils #) system whic h generated this result tra nsmitted reference range : <=0.5. The reference r christiano was not used to int erpret this result as normal/abnormal . [facility] HospitalMeophsmLODNCBDPPK1936-85-31 10:24:00 Test Item Value Reference Range Interpretation Comments Basophils # (test code 0.1 See_Comment [Aut omated message] The = Basophils #) system which generated this result tra nsmitted reference range : <=0.2. The reference r christiano was not used to int erpret this result as normal/abnormal . [facility] HospitalSvdgkigQGCLOJDFPF4935-36-66 10:24:00 Test Item Value Reference Range Interpretation Comments WBC (test code = WBC) 7.5 3.7-10.4 [facility] HospitalNusmnbkYBRMBTFXHB9571-34-54 10:24:00 Test Item Value Reference Range Interpretation Comments RBC (test code = RBC) 3.85 4.20-5.40 [facility] HospitalTqovjvpCEOCIFXBAJ7085-72-50 10:24:00 Test Item Value Reference Range Interpretation Comments Hgb (test code = Hgb) 10.6 12.0-16.0 [facility] HospitalUysrtyxAPDJEJXHTA6543-70-80 10:24:00 Test Item Value Reference Range Interpretation Comments Hct (test code = Hct) 32.1 36.0-48.0 [facility] HospitalBytxbyjVNELYTMVYZ5492-16-44 10:24:00 Test Item Value Reference Range Interpretation Comments MCV (test code = MCV) 83.5 80.0-98.0 [facility] HospitalPhpswiyUWAABRBRTO9686-05-53 10:24:00 Test Item Value Reference Range Interpretation Comments MCH (test code = MCH) 27.7 pg 27.0-31.0 [facility] HospitalOdetdwdKCJMNVVSGC9675-02-22 10:24:00 Test Item Value Reference Range Interpretation Comments MCHC (test code = MCHC) 33.1 32.0-36.0 [facility] HospitalRtofjcySSZAHKJQAP8973-27-42 10:24:00 Test Item Value Reference Range Interpretation Comments RDW (test code = RDW) 16.8 11.5-14.5 [place] 963420-12-07 10:24:00 Test Item Value Reference Range Interpretation Comments Platelet (test code = Platelet) 185 133-450 [facility] HospitalEbxdfwkBHDEVTXZMM6374-52-13 10:24:00 Test Item Value Reference Range Interpretation Comments MPV (test code = MPV) 8.4 7.4-10.4 [facility]2020-12-07 10:24:00 Test Item Value Reference Range Interpretation Comments Glucose Lvl (test code = Glucose Lvl) 66 70-99 [facility]2020-12-07 10:24:00 Test Item Value Reference Range Interpretation Comments BUN (test code = BUN) 19 7-22 [place] 457350-12-07 10:24:00 Test Item Value Reference Range Interpretation Comments Creatinine Lvl (test code = Creatinine 1.82 0.50-1.40 Lvl) [facility]2020-12-07 10:24:00 Test Item Value Reference Range Interpretation Comments Sodium Lvl (test code = Sodium Lvl) 139 135-145 [facility]2020-12-07 10:24:00 Test Item Value Reference Range Interpretation Comments Potassium Lvl (test code = Potassium 4.2 3.5-5.1 Lvl) [facility]2020-12-07 10:24:00 Test Item Value Reference Range Interpretation Comments Chloride Lvl (test code = Chloride Lvl) 105 95-109 [facility]2020-12-07 10:24:00 Test Item Value Reference Range Interpretation Comments CO2 (test code = CO2) 28 24-32 [place] 457350-12-07 10:24:00 Test Item Value Reference Range Interpretation Comments Calcium Lvl (test code = Calcium Lvl) 8.2 8.5-10.5 [place] 457350-12-07 10:24:00 Test Item Value Reference Range Interpretation Comments AGAP (test code = AGAP) 10.2 10.0-20.0 [facility]2020-12-07 10:24:00 Test Item Value Reference Range Interpretation Comments eGFR (test code = eGFR) 26 [facility] HospitalBslazwhIGADVKUHTC0073-40-96 10:24:00 Test Item Value Reference Range Interpretation Comments Segs (test code = Segs) 70.6 45.0-75.0 [facility] HospitalLksylfcERIFTXVVHC4219-29-65 10:24:00 Test Item Value Reference Range Interpretation Comments Lymphocytes (test code = Lymphocytes) 13.2 20.0-40.0 [place] 963420-12-07 10:24:00 Test Item Value Reference Range Interpretation Comments Monocytes (test code = Monocytes) 10.9 2.0-12.0 [facility] HospitalCunlrfuPFNYJWTTIC3017-07-92 10:24:00 Test Item Value Reference Range Interpretation Comments Eosinophils (test code = 4.6 See_Comment [A utomated message] The Eosinophils) system which ge nerated this result tra nsmitted reference range : <=4.0. The reference r christiano was not used to int erpret this result as normal/abnormal . [facility] HospitalHsndokvGWLFWYGVIM1623-67-20 10:24:00 Test Item Value Reference Range Interpretation Comments Basophils (test code = 0.7 See_Comment [Aut omated message] The Basophils) system which ge nerated this result tra nsmitted reference range : <=1.0. The reference r christiano was not used to int erpret this result as normal/abnormal . [facility] HospitalJzvvbxmULNATLJRRM8872-43-95 10:24:00 Test Item Value Reference Range Interpretation Comments Neutrophils # (test code = Neutrophils 5.3 1.5-8.1 #) [facility] HospitalQsuiakbUWHIHGOBTR5165-84-60 10:24:00 Test Item Value Reference Range Interpretation Comments Lymphocytes # (test code = Lymphocytes 1.0 1.0-5.5 #) [facility] HospitalVhemmvdSDFZMJWTQS1456-13-18 10:24:00 Test Item Value Reference Range Interpretation Comments Monocytes # (test code 0.8 See_Comment [Aut omated message] The = Monocytes #) system which generated this result tra nsmitted reference range : <=0.8. The reference r christiano was not used to int erpret this result as normal/abnormal . [facility] HospitalYhulvwyXWTGCSTXBI2122-69-14 10:24:00 Test Item Value Reference Range Interpretation Comments Eosinophils # (test code 0.3 See_Comment [A utomated message] The = Eosinophils #) system [facility] h generated this result tra nsmitted reference range : <=0.5. The reference r christiano was not used to int erpret this result as normal/abnormal . [facility] HospitalTyrgbirXZSCNJXPMI7036-33-50 10:24:00 Test Item Value Reference Range Interpretation Comments Basophils # (test code 0.1 See_Comment [Aut omated message] The = Basophils #) system which generated this result tra nsmitted reference range : <=0.2. The reference r christiano was not used to int erpret this result as normal/abnormal . [facility] HospitalOwbfpxbHXHNZCZAFI8879-84-20 10:24:00 Test Item Value Reference Range Interpretation Comments WBC (test code = WBC) 7.5 3.7-10.4 [facility] HospitalRtjtljuVGEONQASNP5687-21-79 10:24:00 Test Item Value Reference Range Interpretation Comments RBC (test code = RBC) 3.85 4.20-5.40 [facility] HospitalEszyxusBCAOSAJODX3094-65-97 10:24:00 Test Item Value Reference Range Interpretation Comments Hgb (test code = Hgb) 10.6 12.0-16.0 [place] 963420-12-07 10:24:00 Test Item Value Reference Range Interpretation Comments Hct (test code = Hct) 32.1 36.0-48.0 [facility] HospitalTqbcihqWAQGZLUSLI8792-44-10 10:24:00 Test Item Value Reference Range Interpretation Comments MCV (test code = MCV) 83.5 80.0-98.0 [facility] HospitalQxltagkQNPUYVFIVW0269-38-56 10:24:00 Test Item Value Reference Range Interpretation Comments MCH (test code = MCH) 27.7 pg 27.0-31.0 [facility] HospitalQfjryhhPPPLSNLNOT9499-45-05 10:24:00 Test Item Value Reference Range Interpretation Comments MCHC (test code = MCHC) 33.1 32.0-36.0 [facility] HospitalCnxpfkxKPMXWEBCRK8788-72-77 10:24:00 Test Item Value Reference Range Interpretation Comments RDW (test code = RDW) 16.8 11.5-14.5 [facility] HospitalYowamypQLVNYREKUT3816-76-58 10:24:00 Test Item Value Reference Range Interpretation Comments Platelet (test code = Platelet) 185 133-450 [facility] HospitalFggbozaFWZAKZJNCJ9909-16-65 10:24:00 Test Item Value Reference Range Interpretation Comments MPV (test code = MPV) 8.4 7.4-10.4 [place] 457350-12-07 10:24:00 Test Item Value Reference Range Interpretation Comments Glucose Lvl (test code = Glucose Lvl) 66 70-99 [place] 457350-12-07 10:24:00 Test Item Value Reference Range Interpretation Comments BUN (test code = BUN) 19 7-22 [place] 457350-12-07 10:24:00 Test Item Value Reference Range Interpretation Comments Creatinine Lvl (test code = Creatinine 1.82 0.50-1.40 Lvl) [facility]2020-12-07 10:24:00 Test Item Value Reference Range Interpretation Comments Sodium Lvl (test code = Sodium Lvl) 139 135-145 [place] 457350-12-07 10:24:00 Test Item Value Reference Range Interpretation Comments Potassium Lvl (test code = Potassium 4.2 3.5-5.1 Lvl) [place] 457350-12-07 10:24:00 Test Item Value Reference Range Interpretation Comments Chloride Lvl (test code = Chloride Lvl) 105 95-109 [place] 457350-12-07 10:24:00 Test Item Value Reference Range Interpretation Comments CO2 (test code = CO2) 28 24-32 [place] 457350-12-07 10:24:00 Test Item Value Reference Range Interpretation Comments Calcium Lvl (test code = Calcium Lvl) 8.2 8.5-10.5 [facility]2020-12-07 10:24:00 Test Item Value Reference Range Interpretation Comments AGAP (test code = AGAP) 10.2 10.0-20.0 [place] 457350-12-07 10:24:00 Test Item Value Reference Range Interpretation Comments eGFR (test code = eGFR) 26 [place] 963420-12-07 10:24:00 Test Item Value Reference Range Interpretation Comments Segs (test code = Segs) 70.6 45.0-75.0 [place] 963420-12-07 10:24:00 Test Item Value Reference Range Interpretation Comments Lymphocytes (test code = Lymphocytes) 13.2 20.0-40.0 [place] [address]-12-07 10:24:00 Test Item Value Reference Range Interpretation Comments Monocytes (test code = Monocytes) 10.9 2.0-12.0 [place] 963420-12-07 10:24:00 Test Item Value Reference Range Interpretation Comments Eosinophils (test code = 4.6 See_Comment [A utomated message] The Eosinophils) system which ge nerated this result tra nsmitted reference range : <=4.0. The reference r christiano was not used to int erpret this result as normal/abnormal . [facility] HospitalUdzpkwbFEDFGNYXZO7325-00-40 10:24:00 Test Item Value Reference Range Interpretation Comments Basophils (test code = 0.7 See_Comment [Aut omated message] The Basophils) system which ge nerated this result tra nsmitted reference range : <=1.0. The reference r christiano was not used to int erpret this result as normal/abnormal . [facility] HospitalOvwggtuOWDKSOAYMA1930-03-07 10:24:00 Test Item Value Reference Range Interpretation Comments Neutrophils # (test code = Neutrophils 5.3 1.5-8.1 #) [facility] HospitalLhwxajhUXWJQPFNOT6639-47-49 10:24:00 Test Item Value Reference Range Interpretation Comments Lymphocytes # (test code = Lymphocytes 1.0 1.0-5.5 #) [facility] HospitalYseayxmFNIZNELIMY8741-80-10 10:24:00 Test Item Value Reference Range Interpretation Comments Monocytes # (test code 0.8 See_Comment [Aut omated message] The = Monocytes #) system which generated this result tra nsmitted reference range : <=0.8. The reference r christiano was not used to int erpret this result as normal/abnormal . [facility] HospitalQbevvcyZQXCNMBSQG5678-83-36 10:24:00 Test Item Value Reference Range Interpretation Comments Eosinophils # (test code 0.3 See_Comment [A utomated message] The = Eosinophils #) system whic h generated this result tra nsmitted reference range : <=0.5. The reference r christiano was not used to int erpret this result as normal/abnormal . [facility] HospitalFrgbwssPWTZSWZYVP2376-00-43 10:24:00 Test Item Value Reference Range Interpretation Comments Basophils # (test code 0.1 See_Comment [Aut omated message] The = Basophils #) system which generated this result tra nsmitted reference range : <=0.2. The reference r christiano was not used to int erpret this result as normal/abnormal . [facility] HospitalYjqzcebYPGYIWXIEA4516-08-09 10:24:00 Test Item Value Reference Range Interpretation Comments WBC (test code = WBC) 7.5 3.7-10.4 [facility] HospitalRjghiaqELGOFZQUKY8718-70-56 10:24:00 Test Item Value Reference Range Interpretation Comments RBC (test code = RBC) 3.85 4.20-5.40 [facility] HospitalRupazbrJNLYWVQTOR5454-25-67 10:24:00 Test Item Value Reference Range Interpretation Comments Hgb (test code = Hgb) 10.6 12.0-16.0 [place] [address]-12-07 10:24:00 Test Item Value Reference Range Interpretation Comments Hct (test code = Hct) 32.1 36.0-48.0 [facility] HospitalLjvmpzoAUJBUCPEHI3809-23-26 10:24:00 Test Item Value Reference Range Interpretation Comments MCV (test code = MCV) 83.5 80.0-98.0 [place] 963420-12-07 10:24:00 Test Item Value Reference Range Interpretation Comments MCH (test code = MCH) 27.7 pg 27.0-31.0 [facility] HospitalLazgnevUZXJADYRUS5263-61-87 10:24:00 Test Item Value Reference Range Interpretation Comments MCHC (test code = MCHC) 33.1 32.0-36.0 [facility] HospitalAegzphyWRDNZADKGO6798-30-12 10:24:00 Test Item Value Reference Range Interpretation Comments RDW (test code = RDW) 16.8 11.5-14.5 [facility] HospitalUqpnxokFCDNTTBMIW6316-90-44 10:24:00 Test Item Value Reference Range Interpretation Comments Platelet (test code = Platelet) 185 133-450 [facility]2020-12-07 10:24:00 Test Item Value Reference Range Interpretation Comments Glucose Lvl (test code = Glucose Lvl) 66 70-99 [facility]2020-12-07 10:24:00 Test Item Value Reference Range Interpretation Comments BUN (test code = BUN) 19 7-22 [facility]2020-12-07 10:24:00 Test Item Value Reference Range Interpretation Comments Creatinine Lvl (test code = Creatinine 1.82 0.50-1.40 Lvl) [facility]2020-12-07 10:24:00 Test Item Value Reference Range Interpretation Comments Sodium Lvl (test code = Sodium Lvl) 139 135-145 [facility]2020-12-07 10:24:00 Test Item Value Reference Range Interpretation Comments Potassium Lvl (test code = Potassium 4.2 3.5-5.1 Lvl) [facility]2020-12-07 10:24:00 Test Item Value Reference Range Interpretation Comments Chloride Lvl (test code = Chloride Lvl) 105 95-109 [facility]AsqtxodCALRIGMJYE1453-19-51 10:24:00 Test Item Value Reference Range Interpretation Comments MPV (test code = MPV) 8.4 7.4-10.4 [facility]2020-12-07 10:24:00 Test Item Value Reference Range Interpretation Comments CO2 (test code = CO2) 28 24-32 [facility]2020-12-07 10:24:00 Test Item Value Reference Range Interpretation Comments Calcium Lvl (test code = Calcium Lvl) 8.2 8.5-10.5 [facility]2020-12-07 10:24:00 Test Item Value Reference Range Interpretation Comments AGAP (test code = AGAP) 10.2 10.0-20.0 [facility]2020-12-07 10:24:00 Test Item Value Reference Range Interpretation Comments eGFR (test code = eGFR) 26 [facility]EjglvfeYXGAAQJGGG3277-82-56 10:24:00 Test Item Value Reference Range Interpretation Comments Segs (test code = Segs) 70.6 45.0-75.0 [facility] HospitalLrmkswkYZRWIWAPGP3941-70-40 10:24:00 Test Item Value Reference Range Interpretation Comments Lymphocytes (test code = Lymphocytes) 13.2 20.0-40.0 [facility] HospitalVedrwyeFZZEPJAKJG1014-89-88 10:24:00 Test Item Value Reference Range Interpretation Comments Monocytes (test code = Monocytes) 10.9 2.0-12.0 [place] 963420-12-07 10:24:00 Test Item Value Reference Range Interpretation Comments Eosinophils (test code = 4.6 See_Comment [A utomated message] The Eosinophils) system which ge nerated this result tra nsmitted reference range : <=4.0. The reference r christiano was not used to int erpret this result as normal/abnormal . [facility] HospitalNhlrxbvVYQAHLQDMW1767-99-30 10:24:00 Test Item Value Reference Range Interpretation Comments Basophils (test code = 0.7 See_Comment [Aut omated message] The Basophils) system which ge nerated this result tra nsmitted reference range : <=1.0. The reference r christiano was not used to int erpret this result as normal/abnormal . [facility] HospitalYhrsmeeGJUJPLIKXE8712-09-02 10:24:00 Test Item Value Reference Range Interpretation Comments Neutrophils # (test code = Neutrophils 5.3 1.5-8.1 #) [facility] HospitalAdoskstSQDXJIGSEO2663-48-03 10:24:00 Test Item Value Reference Range Interpretation Comments Lymphocytes # (test code = Lymphocytes 1.0 1.0-5.5 #) [facility] HospitalJztalpiTRCFXPQJMQ1553-37-77 10:24:00 Test Item Value Reference Range Interpretation Comments Monocytes # (test code 0.8 See_Comment [Aut omated message] The = Monocytes #) system which generated this result tra nsmitted reference range : <=0.8. The reference r christiano was not used to int erpret this result as normal/abnormal . [facility] HospitalGqrrwnwECHWXWXNPD6302-70-93 10:24:00 Test Item Value Reference Range Interpretation Comments Eosinophils # (test code 0.3 See_Comment [A utomated message] The = Eosinophils #) system whic h generated this result tra nsmitted reference range : <=0.5. The reference r christiano was not used to int erpret this result as normal/abnormal . [facility] HospitalKzsarsyIROLADTZFB0137-63-46 10:24:00 Test Item Value Reference Range Interpretation Comments Basophils # (test code 0.1 See_Comment [Aut omated message] The = Basophils #) system which generated this result tra nsmitted reference range : <=0.2. The reference r christiano was not used to int erpret this result as normal/abnormal . [facility] HospitalIskimakUNAJAOQZII4292-18-58 10:24:00 Test Item Value Reference Range Interpretation Comments WBC (test code = WBC) 7.5 3.7-10.4 [facility] HospitalBvfcnxbLLFSWNCGUS5348-62-79 10:24:00 Test Item Value Reference Range Interpretation Comments RBC (test code = RBC) 3.85 4.20-5.40 [place] 963420-12-07 10:24:00 Test Item Value Reference Range Interpretation Comments Hgb (test code = Hgb) 10.6 12.0-16.0 [facility] HospitalPmyzjqxBALHMRPBWA4011-27-50 10:24:00 Test Item Value Reference Range Interpretation Comments Hct (test code = Hct) 32.1 36.0-48.0 [facility] HospitalZnwjxlqSUUWUVBMOL2095-50-98 10:24:00 Test Item Value Reference Range Interpretation Comments MCV (test code = MCV) 83.5 80.0-98.0 [facility] HospitalOpcltylPERMTAJYWU9393-51-01 10:24:00 Test Item Value Reference Range Interpretation Comments MCH (test code = MCH) 27.7 pg 27.0-31.0 [facility] HospitalPtexuimFKIQFAPGNI8557-85-73 10:24:00 Test Item Value Reference Range Interpretation Comments MCHC (test code = MCHC) 33.1 32.0-36.0 [facility] HospitalRjfynrgHNEOUAAIIQ3534-08-73 10:24:00 Test Item Value Reference Range Interpretation Comments RDW (test code = RDW) 16.8 11.5-14.5 [facility] HospitalRyprwglLMMDANOWSH2385-11-49 10:24:00 Test Item Value Reference Range Interpretation Comments Platelet (test code = Platelet) 185 133-450 [facility] HospitalDcwdcsmEFOHYICGGC8208-07-85 10:24:00 Test Item Value Reference Range Interpretation Comments MPV (test code = MPV) 8.4 7.4-10.4 [facility]2020-12-07 10:24:00 Test Item Value Reference Range Interpretation Comments Glucose Lvl (test code = Glucose Lvl) 66 70-99 [facility]2020-12-07 10:24:00 Test Item Value Reference Range Interpretation Comments BUN (test code = BUN) 19 7-22 [facility]2020-12-07 10:24:00 Test Item Value Reference Range Interpretation Comments Creatinine Lvl (test code = Creatinine 1.82 0.50-1.40 Lvl) [facility]2020-12-07 10:24:00 Test Item Value Reference Range Interpretation Comments Sodium Lvl (test code = Sodium Lvl) 139 135-145 [facility]2020-12-07 10:24:00 Test Item Value Reference Range Interpretation Comments Potassium Lvl (test code = Potassium 4.2 3.5-5.1 Lvl) [facility]2020-12-07 10:24:00 Test Item Value Reference Range Interpretation Comments Chloride Lvl (test code = Chloride Lvl) 105 95-109 [place] 457350-12-07 10:24:00 Test Item Value Reference Range Interpretation Comments CO2 (test code = CO2) 28 24-32 [place] 457350-12-07 10:24:00 Test Item Value Reference Range Interpretation Comments Calcium Lvl (test code = Calcium Lvl) 8.2 8.5-10.5 [place] 457350-12-07 10:24:00 Test Item Value Reference Range Interpretation Comments AGAP (test code = AGAP) 10.2 10.0-20.0 [place] 457350-12-07 10:24:00 Test Item Value Reference Range Interpretation Comments eGFR (test code = eGFR) 26 [facility] HospitalEgahneiYRMLJNEWGK9514-67-66 10:24:00 Test Item Value Reference Range Interpretation Comments Segs (test code = Segs) 70.6 45.0-75.0 [place] 963420-12-07 10:24:00 Test Item Value Reference Range Interpretation Comments Lymphocytes (test code = Lymphocytes) 13.2 20.0-40.0 [place] 963420-12-07 10:24:00 Test Item Value Reference Range Interpretation Comments Monocytes (test code = Monocytes) 10.9 2.0-12.0 [place] 963420-12-07 10:24:00 Test Item Value Reference Range Interpretation Comments Eosinophils (test code = 4.6 See_Comment [A utomated message] The Eosinophils) system which ge nerated this result tra nsmitted reference range : <=4.0. The reference r christiano was not used to int erpret this result as normal/abnormal . [place] 963420-12-07 10:24:00 Test Item Value Reference Range Interpretation Comments Basophils (test code = 0.7 See_Comment [Aut omated message] The Basophils) system which ge nerated this result tra nsmitted reference range : <=1.0. The reference r christiano was not used to int erpret this result as normal/abnormal . [place] 963420-12-07 10:24:00 Test Item Value Reference Range Interpretation Comments Neutrophils # (test code = Neutrophils 5.3 1.5-8.1 #) [facility] HospitalOgnlwfuKYIHWUBKAG2572-80-99 10:24:00 Test Item Value Reference Range Interpretation Comments Lymphocytes # (test code = Lymphocytes 1.0 1.0-5.5 #) [facility] HospitalHxrghfuVQHNDMIDWL1539-67-70 10:24:00 Test Item Value Reference Range Interpretation Comments Monocytes # (test code 0.8 See_Comment [Aut omated message] The = Monocytes #) system which generated this result tra nsmitted reference range : <=0.8. The reference r christiano was not used to int erpret this result as normal/abnormal . [facility] HospitalLnikygsVOSLQWTTSD4814-29-42 10:24:00 Test Item Value Reference Range Interpretation Comments Eosinophils # (test code 0.3 See_Comment [A utomated message] The = Eosinophils #) system whic h generated this result tra nsmitted reference range : <=0.5. The reference r christiano was not used to int erpret this result as normal/abnormal . [facility] HospitalWysxoypXDQTVNDOKQ9964-45-93 10:24:00 Test Item Value Reference Range Interpretation Comments Basophils # (test code 0.1 See_Comment [Aut omated message] The = Basophils #) system which generated this result tra nsmitted reference range : <=0.2. The reference r christiano was not used to int erpret this result as normal/abnormal . [facility] HospitalGodhsnhCNGZIPXQQL3809-79-62 10:24:00 Test Item Value Reference Range Interpretation Comments WBC (test code = WBC) 7.5 3.7-10.4 [facility] HospitalQtnuauhWIXCTYVJSM9020-13-35 10:24:00 Test Item Value Reference Range Interpretation Comments RBC (test code = RBC) 3.85 4.20-5.40 [facility] HospitalNaspvasSKIQBEFOWQ0613-08-38 10:24:00 Test Item Value Reference Range Interpretation Comments Hgb (test code = Hgb) 10.6 12.0-16.0 [place] 963420-12-07 10:24:00 Test Item Value Reference Range Interpretation Comments Hct (test code = Hct) 32.1 36.0-48.0 [facility] HospitalPmblweuZDNOTSQSEQ1947-48-04 10:24:00 Test Item Value Reference Range Interpretation Comments MCV (test code = MCV) 83.5 80.0-98.0 [place] 963420-12-07 10:24:00 Test Item Value Reference Range Interpretation Comments MCH (test code = MCH) 27.7 pg 27.0-31.0 [place] [address]-12-07 10:24:00 Test Item Value Reference Range Interpretation Comments MCHC (test code = MCHC) 33.1 32.0-36.0 [place] 963420-12-07 10:24:00 Test Item Value Reference Range Interpretation Comments RDW (test code = RDW) 16.8 11.5-14.5 [place] [address]-12-07 10:24:00 Test Item Value Reference Range Interpretation Comments Platelet (test code = Platelet) 185 133-450 [facility] HospitalFabvrkvEMCNGFNUGH3687-94-81 10:24:00 Test Item Value Reference Range Interpretation Comments MPV (test code = MPV) 8.4 7.4-10.4 [facility]2020-12-07 10:24:00 Test Item Value Reference Range Interpretation Comments Glucose Lvl (test code = Glucose Lvl) 66 70-99 [facility]2020-12-07 10:24:00 Test Item Value Reference Range Interpretation Comments BUN (test code = BUN) 19 7-22 [facility]2020-12-07 10:24:00 Test Item Value Reference Range Interpretation Comments Creatinine Lvl (test code = Creatinine 1.82 0.50-1.40 Lvl) [facility]2020-12-07 10:24:00 Test Item Value Reference Range Interpretation Comments Sodium Lvl (test code = Sodium Lvl) 139 135-145 [place] 457350-12-07 10:24:00 Test Item Value Reference Range Interpretation Comments Potassium Lvl (test code = Potassium 4.2 3.5-5.1 Lvl) [facility]2020-12-07 10:24:00 Test Item Value Reference Range Interpretation Comments Chloride Lvl (test code = Chloride Lvl) 105 95-109 [facility]2020-12-07 10:24:00 Test Item Value Reference Range Interpretation Comments CO2 (test code = CO2) 28 24-32 [place] 457350-12-07 10:24:00 Test Item Value Reference Range Interpretation Comments Calcium Lvl (test code = Calcium Lvl) 8.2 8.5-10.5 [facility]2020-12-07 10:24:00 Test Item Value Reference Range Interpretation Comments AGAP (test code = AGAP) 10.2 10.0-20.0 [facility]2020-12-07 10:24:00 Test Item Value Reference Range Interpretation Comments eGFR (test code = eGFR) 26 [facility] HospitalKqtjudeTDVIDRNZBR5410-21-63 10:24:00 Test Item Value Reference Range Interpretation Comments Segs (test code = Segs) 70.6 45.0-75.0 [facility] HospitalUzfnaaeHEKAJAYFUJ0308-62-81 10:24:00 Test Item Value Reference Range Interpretation Comments Lymphocytes (test code = Lymphocytes) 13.2 20.0-40.0 [facility] HospitalSriytuqPJBGOKKFOL3216-87-16 10:24:00 Test Item Value Reference Range Interpretation Comments Monocytes (test code = Monocytes) 10.9 2.0-12.0 [facility] HospitalNdsifapBWNPJHWKDX6528-30-10 10:24:00 Test Item Value Reference Range Interpretation Comments Eosinophils (test code = 4.6 See_Comment [A utomated message] The Eosinophils) system which ge nerated this result tra nsmitted reference range : <=4.0. The reference r christiano was not used to int erpret this result as normal/abnormal . [facility] HospitalXdbbgxlJIJELEOBWD5099-86-41 10:24:00 Test Item Value Reference Range Interpretation Comments Basophils (test code = 0.7 See_Comment [Aut omated message] The Basophils) system which ge nerated this result tra nsmitted reference range : <=1.0. The reference r christiano was not used to int erpret this result as normal/abnormal . [facility] HospitalOvhftjhQPWCLBLSYS1351-36-48 10:24:00 Test Item Value Reference Range Interpretation Comments Neutrophils # (test code = Neutrophils 5.3 1.5-8.1 #) [facility] HospitalXfyiqbtNIIHSJSBFY5930-90-85 10:24:00 Test Item Value Reference Range Interpretation Comments Lymphocytes # (test code = Lymphocytes 1.0 1.0-5.5 #) [facility] HospitalCoxxrqeKNIUXZWOHW1121-46-20 10:24:00 Test Item Value Reference Range Interpretation Comments Monocytes # (test code 0.8 See_Comment [Aut omated message] The = Monocytes #) system which generated this result tra nsmitted reference range : <=0.8. The reference r christiano was not used to int erpret this result as normal/abnormal . [facility] HospitalEyemiepCPNIWXFXBS6287-66-96 10:24:00 Test Item Value Reference Range Interpretation Comments Eosinophils # (test code 0.3 See_Comment [A utomated message] The = Eosinophils #) system whic h generated this result tra nsmitted reference range : <=0.5. The reference r christiano was not used to int erpret this result as normal/abnormal . [facility] HospitalUaabzogGEDLMJVWSC0137-62-93 10:24:00 Test Item Value Reference Range Interpretation Comments Basophils # (test code 0.1 See_Comment [Aut omated message] The = Basophils #) system which generated this result tra nsmitted reference range : <=0.2. The reference r christiano was not used to int erpret this result as normal/abnormal . [facility] HospitalThoftygEDLMAHXSEX7350-69-57 10:24:00 Test Item Value Reference Range Interpretation Comments WBC (test code = WBC) 7.5 3.7-10.4 [facility] HospitalYkslqptDDVDYSCWTA3469-49-67 10:24:00 Test Item Value Reference Range Interpretation Comments RBC (test code = RBC) 3.85 4.20-5.40 [facility] HospitalDsljalyVYRARPXOQE4867-75-65 10:24:00 Test Item Value Reference Range Interpretation Comments Hgb (test code = Hgb) 10.6 12.0-16.0 [facility] HospitalJoaccmrAGKRDMXYMC0829-71-93 10:24:00 Test Item Value Reference Range Interpretation Comments Hct (test code = Hct) 32.1 36.0-48.0 [facility] HospitalUtphxqwNJWWDUEJHA7520-05-52 10:24:00 Test Item Value Reference Range Interpretation Comments MCV (test code = MCV) 83.5 80.0-98.0 [facility] HospitalPudkiqjCKRCDPNGNC7289-85-34 10:24:00 Test Item Value Reference Range Interpretation Comments MCH (test code = MCH) 27.7 pg 27.0-31.0 [facility] HospitalDjvefweCZVXQWTDYN5650-30-87 10:24:00 Test Item Value Reference Range Interpretation Comments MCHC (test code = MCHC) 33.1 32.0-36.0 [place] 963420-12-07 10:24:00 Test Item Value Reference Range Interpretation Comments RDW (test code = RDW) 16.8 11.5-14.5 [place] 963420-12-07 10:24:00 Test Item Value Reference Range Interpretation Comments Platelet (test code = Platelet) 185 133-450 [facility] HospitalAwbvjxcITNNZIIXMP7552-43-82 10:24:00 Test Item Value Reference Range Interpretation Comments MPV (test code = MPV) 8.4 7.4-10.4 [facility]2020-12-07 10:24:00 Test Item Value Reference Range Interpretation Comments Glucose Lvl (test code = Glucose Lvl) 66 70-99 [facility]2020-12-07 10:24:00 Test Item Value Reference Range Interpretation Comments BUN (test code = BUN) 19 7-22 [facility]2020-12-07 10:24:00 Test Item Value Reference Range Interpretation Comments Creatinine Lvl (test code = Creatinine 1.82 0.50-1.40 Lvl) [facility]2020-12-07 10:24:00 Test Item Value Reference Range Interpretation Comments Sodium Lvl (test code = Sodium Lvl) 139 135-145 [facility]2020-12-07 10:24:00 Test Item Value Reference Range Interpretation Comments Potassium Lvl (test code = Potassium 4.2 3.5-5.1 Lvl) [facility]2020-12-07 10:24:00 Test Item Value Reference Range Interpretation Comments Chloride Lvl (test code = Chloride Lvl) 105 95-109 [facility]2020-12-07 10:24:00 Test Item Value Reference Range Interpretation Comments CO2 (test code = CO2) 28 24-32 [facility]2020-12-07 10:24:00 Test Item Value Reference Range Interpretation Comments Calcium Lvl (test code = Calcium Lvl) 8.2 8.5-10.5 [facility]2020-12-07 10:24:00 Test Item Value Reference Range Interpretation Comments AGAP (test code = AGAP) 10.2 10.0-20.0 [facility]2020-12-07 10:24:00 Test Item Value Reference Range Interpretation Comments eGFR (test code = eGFR) 26 [facility] HospitalQerxvpnNHHXDHFCNL3917-01-87 10:24:00 Test Item Value Reference Range Interpretation Comments Segs (test code = Segs) 70.6 45.0-75.0 [facility] HospitalHdetozzFDCRSBUUOB7319-89-70 10:24:00 Test Item Value Reference Range Interpretation Comments Lymphocytes (test code = Lymphocytes) 13.2 20.0-40.0 [facility] HospitalShzogjgRMNELERNVD2806-22-46 10:24:00 Test Item Value Reference Range Interpretation Comments Monocytes (test code = Monocytes) 10.9 2.0-12.0 [facility] HospitalDyuecfjTJKEHHZNRA9149-60-99 10:24:00 Test Item Value Reference Range Interpretation Comments Eosinophils (test code = 4.6 See_Comment [A utomated message] The Eosinophils) system which ge nerated this result tra nsmitted reference range : <=4.0. The reference r christiano was not used to int erpret this result as normal/abnormal . [facility] HospitalOavbxldVJXKFJHKNE1754-31-84 10:24:00 Test Item Value Reference Range Interpretation Comments Basophils (test code = 0.7 See_Comment [Aut omated message] The Basophils) system which ge nerated this result tra nsmitted reference range : <=1.0. The reference r christiano was not used to int erpret this result as normal/abnormal . [facility] HospitalIrqpxukIOIHVDPWIJ5458-13-97 10:24:00 Test Item Value Reference Range Interpretation Comments Neutrophils # (test code = Neutrophils 5.3 1.5-8.1 #) [facility] HospitalYdgsylkQQBXGKRVSD7847-06-47 10:24:00 Test Item Value Reference Range Interpretation Comments Lymphocytes # (test code = Lymphocytes 1.0 1.0-5.5 #) [facility] HospitalVbagexnCKJSOODQLH3752-30-50 10:24:00 Test Item Value Reference Range Interpretation Comments Monocytes # (test code 0.8 See_Comment [Aut omated message] The = Monocytes #) system which generated this result tra nsmitted reference range : <=0.8. The reference r christiano was not used to int erpret this result as normal/abnormal . [facility] HospitalFapwioqMMVMQBBHGC1075-76-80 10:24:00 Test Item Value Reference Range Interpretation Comments Eosinophils # (test code 0.3 See_Comment [A utomated message] The = Eosinophils #) system whic h generated this result tra nsmitted reference range : <=0.5. The reference r christiano was not used to int erpret this result as normal/abnormal . [facility] HospitalOwydgwlMGOFOYWSPY9632-54-83 10:24:00 Test Item Value Reference Range Interpretation Comments Basophils # (test code 0.1 See_Comment [Aut omated message] The = Basophils #) system which generated this result tra nsmitted reference range : <=0.2. The reference r christiano was not used to int erpret this result as normal/abnormal . [facility] HospitalTqtbjpdJHQZLNYKJU6597-03-80 10:24:00 Test Item Value Reference Range Interpretation Comments WBC (test code = WBC) 7.5 3.7-10.4 [facility] HospitalQwklgrpDHSWDULPRM2177-37-16 10:24:00 Test Item Value Reference Range Interpretation Comments RBC (test code = RBC) 3.85 4.20-5.40 [facility] HospitalOvqhbckFGBCDOEZKB0436-79-44 10:24:00 Test Item Value Reference Range Interpretation Comments Hgb (test code = Hgb) 10.6 12.0-16.0 [facility] HospitalJrmoszwYWTPFPKVCT5011-27-45 10:24:00 Test Item Value Reference Range Interpretation Comments Hct (test code = Hct) 32.1 36.0-48.0 [facility] HospitalSqrilfkOMSQUSNOON1484-70-85 10:24:00 Test Item Value Reference Range Interpretation Comments MCV (test code = MCV) 83.5 80.0-98.0 [facility] HospitalGdpcutgXJPPFREMAG7257-09-70 10:24:00 Test Item Value Reference Range Interpretation Comments MCH (test code = MCH) 27.7 pg 27.0-31.0 [facility] HospitalJaenazwVDDAYYSKNW1874-36-70 10:24:00 Test Item Value Reference Range Interpretation Comments MCHC (test code = MCHC) 33.1 32.0-36.0 [facility] HospitalSpqktqiSODPLBIFJB6830-57-99 10:24:00 Test Item Value Reference Range Interpretation Comments RDW (test code = RDW) 16.8 11.5-14.5 [facility] HospitalWdblyfwJFBIALMXWL8155-41-00 10:24:00 Test Item Value Reference Range Interpretation Comments Platelet (test code = Platelet) 185 133-450 [facility] HospitalDnzphcxDPNCFBZXUM1764-13-41 10:24:00 Test Item Value Reference Range Interpretation Comments MPV (test code = MPV) 8.4 7.4-10.4 [facility]2020-12-07 10:24:00 Test Item Value Reference Range Interpretation Comments Glucose Lvl (test code = Glucose Lvl) 66 70-99 [place] 457350-12-07 10:24:00 Test Item Value Reference Range Interpretation Comments BUN (test code = BUN) 19 7-22 [place] 457350-12-07 10:24:00 Test Item Value Reference Range Interpretation Comments Creatinine Lvl (test code = Creatinine 1.82 0.50-1.40 Lvl) [facility]2020-12-07 10:24:00 Test Item Value Reference Range Interpretation Comments Sodium Lvl (test code = Sodium Lvl) 139 135-145 [facility]2020-12-07 10:24:00 Test Item Value Reference Range Interpretation Comments Potassium Lvl (test code = Potassium 4.2 3.5-5.1 Lvl) [facility]2020-12-07 10:24:00 Test Item Value Reference Range Interpretation Comments Chloride Lvl (test code = Chloride Lvl) 105 95-109 [facility]2020-12-07 10:24:00 Test Item Value Reference Range Interpretation Comments CO2 (test code = CO2) 28 24-32 [facility]2020-12-07 10:24:00 Test Item Value Reference Range Interpretation Comments Calcium Lvl (test code = Calcium Lvl) 8.2 8.5-10.5 [facility]2020-12-07 10:24:00 Test Item Value Reference Range Interpretation Comments AGAP (test code = AGAP) 10.2 10.0-20.0 [facility]2020-12-07 10:24:00 Test Item Value Reference Range Interpretation Comments eGFR (test code = eGFR) 26 [facility] HospitalSdabyboODUCTPSTJQ0170-66-04 10:24:00 Test Item Value Reference Range Interpretation Comments Segs (test code = Segs) 70.6 45.0-75.0 [place] 963420-12-07 10:24:00 Test Item Value Reference Range Interpretation Comments Lymphocytes (test code = Lymphocytes) 13.2 20.0-40.0 [place] [address]-12-07 10:24:00 Test Item Value Reference Range Interpretation Comments Monocytes (test code = Monocytes) 10.9 2.0-12.0 [facility] HospitalJjtnzwrHIDOGYCUXC8813-30-36 10:24:00 Test Item Value Reference Range Interpretation Comments Eosinophils (test code = 4.6 See_Comment [A utomated message] The Eosinophils) system which ge nerated this result tra nsmitted reference range : <=4.0. The reference r christiano was not used to int erpret this result as normal/abnormal . [facility] HospitalVrwdusgECOVCGDNYN4307-24-44 10:24:00 Test Item Value Reference Range Interpretation Comments Basophils (test code = 0.7 See_Comment [Aut omated message] The Basophils) system which ge nerated this result tra nsmitted reference range : <=1.0. The reference r christiano was not used to int erpret this result as normal/abnormal . [facility] HospitalCokqocwHMOAQFSQYS0480-14-92 10:24:00 Test Item Value Reference Range Interpretation Comments Neutrophils # (test code = Neutrophils 5.3 1.5-8.1 #) [facility] HospitalYbjlxyuHULEHVHXWG1869-05-60 10:24:00 Test Item Value Reference Range Interpretation Comments Lymphocytes # (test code = Lymphocytes 1.0 1.0-5.5 #) [facility] HospitalYcaowylSBPLPAWLMD1670-77-96 10:24:00 Test Item Value Reference Range Interpretation Comments Monocytes # (test code 0.8 See_Comment [Aut omated message] The = Monocytes #) system which generated this result tra nsmitted reference range : <=0.8. The reference r christiano was not used to int erpret this result as normal/abnormal . [facility] HospitalGtvmahiANAYZQGFTF5145-48-57 10:24:00 Test Item Value Reference Range Interpretation Comments Eosinophils # (test code 0.3 See_Comment [A utomated message] The = Eosinophils #) system whic h generated this result tra nsmitted reference range : <=0.5. The reference r christiano was not used to int erpret this result as normal/abnormal . [facility] HospitalQmroumtISCWNWFBCE3029-12-68 10:24:00 Test Item Value Reference Range Interpretation Comments Basophils # (test code 0.1 See_Comment [Aut omated message] The = Basophils #) system which generated this result tra nsmitted reference range : <=0.2. The reference r christiano was not used to int erpret this result as normal/abnormal . [facility] HospitalXbicouaZFGIOSVWPN7087-47-32 10:24:00 Test Item Value Reference Range Interpretation Comments WBC (test code = WBC) 7.5 3.7-10.4 [facility] HospitalAbtnqeeERWQDCKSUY6171-56-36 10:24:00 Test Item Value Reference Range Interpretation Comments RBC (test code = RBC) 3.85 4.20-5.40 [facility] HospitalHnehhypFCKZVUVXSP7789-88-02 10:24:00 Test Item Value Reference Range Interpretation Comments Hgb (test code = Hgb) 10.6 12.0-16.0 [facility] HospitalGvomjzlAOHQYNAKPJ4276-25-01 10:24:00 Test Item Value Reference Range Interpretation Comments Hct (test code = Hct) 32.1 36.0-48.0 [facility] HospitalIqvcpzvIQINDQZIBG1971-49-92 10:24:00 Test Item Value Reference Range Interpretation Comments MCV (test code = MCV) 83.5 80.0-98.0 [facility] HospitalHkyighrIPKONBADGF6249-22-65 10:24:00 Test Item Value Reference Range Interpretation Comments MCH (test code = MCH) 27.7 pg 27.0-31.0 [facility] HospitalRwhvmhbAFQSAWYMUA8302-39-09 10:24:00 Test Item Value Reference Range Interpretation Comments MCHC (test code = MCHC) 33.1 32.0-36.0 [facility] HospitalJxhiwpzKBREDQUFQB4246-83-22 10:24:00 Test Item Value Reference Range Interpretation Comments RDW (test code = RDW) 16.8 11.5-14.5 [facility] HospitalVhkutvwSWWYMRGMIT2712-92-61 10:24:00 Test Item Value Reference Range Interpretation Comments Platelet (test code = Platelet) 185 133-450 [facility] HospitalTvcqcemBRNUQNYZKJ3924-68-68 10:24:00 Test Item Value Reference Range Interpretation Comments MPV (test code = MPV) 8.4 7.4-10.4 [facility]2020-12-07 10:24:00 Test Item Value Reference Range Interpretation Comments Glucose Lvl (test code = Glucose Lvl) 66 70-99 [facility]2020-12-07 10:24:00 Test Item Value Reference Range Interpretation Comments BUN (test code = BUN) 19 7-22 [facility]2020-12-07 10:24:00 Test Item Value Reference Range Interpretation Comments Creatinine Lvl (test code = Creatinine 1.82 0.50-1.40 Lvl) [facility]2020-12-07 10:24:00 Test Item Value Reference Range Interpretation Comments Sodium Lvl (test code = Sodium Lvl) 139 135-145 [place] 457350-12-07 10:24:00 Test Item Value Reference Range Interpretation Comments Potassium Lvl (test code = Potassium 4.2 3.5-5.1 Lvl) [facility]2020-12-07 10:24:00 Test Item Value Reference Range Interpretation Comments Chloride Lvl (test code = Chloride Lvl) 105 95-109 [facility]2020-12-07 10:24:00 Test Item Value Reference Range Interpretation Comments CO2 (test code = CO2) 28 24-32 [facility]2020-12-07 10:24:00 Test Item Value Reference Range Interpretation Comments Calcium Lvl (test code = Calcium Lvl) 8.2 8.5-10.5 [facility]2020-12-07 10:24:00 Test Item Value Reference Range Interpretation Comments AGAP (test code = AGAP) 10.2 10.0-20.0 [facility]2020-12-07 10:24:00 Test Item Value Reference Range Interpretation Comments eGFR (test code = eGFR) 26 [facility] HospitalSmooszoQCECOFAEZN5053-67-09 10:24:00 Test Item Value Reference Range Interpretation Comments Segs (test code = Segs) 70.6 45.0-75.0 [facility] HospitalCgluvwoYIASWQEYDV5382-11-59 10:24:00 Test Item Value Reference Range Interpretation Comments Lymphocytes (test code = Lymphocytes) 13.2 20.0-40.0 [place] 963420-12-07 10:24:00 Test Item Value Reference Range Interpretation Comments Monocytes (test code = Monocytes) 10.9 2.0-12.0 [place] [address]-12-07 10:24:00 Test Item Value Reference Range Interpretation Comments Eosinophils (test code = 4.6 See_Comment [A utomated message] The Eosinophils) system which ge nerated this result tra nsmitted reference range : <=4.0. The reference r christiano was not used to int erpret this result as normal/abnormal . [facility] HospitalAlzwyrbBJXTSPLGZQ8746-03-46 10:24:00 Test Item Value Reference Range Interpretation Comments Basophils (test code = 0.7 See_Comment [Aut omated message] The Basophils) system which ge nerated this result tra nsmitted reference range : <=1.0. The reference r christiano was not used to int erpret this result as normal/abnormal . [facility] HospitalCaklobnJSTSWNCAGC7209-86-40 10:24:00 Test Item Value Reference Range Interpretation Comments Neutrophils # (test code = Neutrophils 5.3 1.5-8.1 #) [facility] HospitalHyfajsuNDNFKFECWL3805-49-66 10:24:00 Test Item Value Reference Range Interpretation Comments Lymphocytes # (test code = Lymphocytes 1.0 1.0-5.5 #) [facility] HospitalKfdyeddCNVVCPNKMT8613-36-98 10:24:00 Test Item Value Reference Range Interpretation Comments Monocytes # (test code 0.8 See_Comment [Aut omated message] The = Monocytes #) system which generated this result tra nsmitted reference range : <=0.8. The reference r christiano was not used to int erpret this result as normal/abnormal . [facility] HospitalRqqtpjuKGNSLVIFQA9123-89-39 10:24:00 Test Item Value Reference Range Interpretation Comments Eosinophils # (test code 0.3 See_Comment [A utomated message] The = Eosinophils #) system whic h generated this result tra nsmitted reference range : <=0.5. The reference r christiano was not used to int erpret this result as normal/abnormal . [facility] HospitalAtgrgzrVACEROSUCJ2354-33-21 10:24:00 Test Item Value Reference Range Interpretation Comments Basophils # (test code 0.1 See_Comment [Aut omated message] The = Basophils #) system which generated this result tra nsmitted reference range : <=0.2. The reference r christiano was not used to int erpret this result as normal/abnormal . [facility] HospitalTbltrkkITURIWZOSG0858-31-52 10:24:00 Test Item Value Reference Range Interpretation Comments WBC (test code = WBC) 7.5 3.7-10.4 [facility] HospitalFuzcvvlRKEPMRFUCS6436-72-25 10:24:00 Test Item Value Reference Range Interpretation Comments RBC (test code = RBC) 3.85 4.20-5.40 [facility] HospitalBliizilDJWRXPMKVQ8630-59-78 10:24:00 Test Item Value Reference Range Interpretation Comments Hgb (test code = Hgb) 10.6 12.0-16.0 [place] [address]-12-07 10:24:00 Test Item Value Reference Range Interpretation Comments Hct (test code = Hct) 32.1 36.0-48.0 [place] [address]-12-07 10:24:00 Test Item Value Reference Range Interpretation Comments MCV (test code = MCV) 83.5 80.0-98.0 [place] [address]-12-07 10:24:00 Test Item Value Reference Range Interpretation Comments MCH (test code = MCH) 27.7 pg 27.0-31.0 [place] [address]-12-07 10:24:00 Test Item Value Reference Range Interpretation Comments MCHC (test code = MCHC) 33.1 32.0-36.0 [place] [address]-12-07 10:24:00 Test Item Value Reference Range Interpretation Comments RDW (test code = RDW) 16.8 11.5-14.5 [place] [address]-12-07 10:24:00 Test Item Value Reference Range Interpretation Comments Platelet (test code = Platelet) 185 133-450 [facility] HospitalOuxrfvvQOESMDIXNO6868-34-48 10:24:00 Test Item Value Reference Range Interpretation Comments MPV (test code = MPV) 8.4 7.4-10.4 [facility]2020-12-07 10:24:00 Test Item Value Reference Range Interpretation Comments Glucose Lvl (test code = Glucose Lvl) 66 70-99 [facility]2020-12-07 10:24:00 Test Item Value Reference Range Interpretation Comments BUN (test code = BUN) 19 7-22 [facility]2020-12-07 10:24:00 Test Item Value Reference Range Interpretation Comments Creatinine Lvl (test code = Creatinine 1.82 0.50-1.40 Lvl) [facility]2020-12-07 10:24:00 Test Item Value Reference Range Interpretation Comments Sodium Lvl (test code = Sodium Lvl) 139 135-145 [place] 457350-12-07 10:24:00 Test Item Value Reference Range Interpretation Comments Potassium Lvl (test code = Potassium 4.2 3.5-5.1 Lvl) [place] 457350-12-07 10:24:00 Test Item Value Reference Range Interpretation Comments Chloride Lvl (test code = Chloride Lvl) 105 95-109 [place] 457350-12-07 10:24:00 Test Item Value Reference Range Interpretation Comments CO2 (test code = CO2) 28 24-32 [place] 457350-12-07 10:24:00 Test Item Value Reference Range Interpretation Comments Calcium Lvl (test code = Calcium Lvl) 8.2 8.5-10.5 [place] 457350-12-07 10:24:00 Test Item Value Reference Range Interpretation Comments AGAP (test code = AGAP) 10.2 10.0-20.0 [facility]2020-12-07 10:24:00 Test Item Value Reference Range Interpretation Comments eGFR (test code = eGFR) 26 [place] 963420-12-07 10:24:00 Test Item Value Reference Range Interpretation Comments Segs (test code = Segs) 70.6 45.0-75.0 [place] 963420-12-07 10:24:00 Test Item Value Reference Range Interpretation Comments Lymphocytes (test code = Lymphocytes) 13.2 20.0-40.0 [place] [address]-12-07 10:24:00 Test Item Value Reference Range Interpretation Comments Monocytes (test code = Monocytes) 10.9 2.0-12.0 [place] [address]-12-07 10:24:00 Test Item Value Reference Range Interpretation Comments Eosinophils (test code = 4.6 See_Comment [A utomated message] The Eosinophils) system which ge nerated this result tra nsmitted reference range : <=4.0. The reference r christiano was not used to int erpret this result as normal/abnormal . [place] 963420-12-07 10:24:00 Test Item Value Reference Range Interpretation Comments Basophils (test code = 0.7 See_Comment [Aut omated message] The Basophils) system which ge nerated this result tra nsmitted reference range : <=1.0. The reference r christiano was not used to int erpret this result as normal/abnormal . [facility] HospitalThlqrghFCKZWMZREC8834-37-17 10:24:00 Test Item Value Reference Range Interpretation Comments Neutrophils # (test code = Neutrophils 5.3 1.5-8.1 #) [facility] HospitalNkldflvFHULSVKNWQ6138-04-88 10:24:00 Test Item Value Reference Range Interpretation Comments Lymphocytes # (test code = Lymphocytes 1.0 1.0-5.5 #) [facility] HospitalMjxfpncJQAQMDUMDC0852-45-69 10:24:00 Test Item Value Reference Range Interpretation Comments Monocytes # (test code 0.8 See_Comment [Aut omated message] The = Monocytes #) system which generated this result tra nsmitted reference range : <=0.8. The reference r christiano was not used to int erpret this result as normal/abnormal . [facility] HospitalJldsczoKMQCHIUQYB7752-24-30 10:24:00 Test Item Value Reference Range Interpretation Comments Eosinophils # (test code 0.3 See_Comment [A utomated message] The = Eosinophils #) system whic h generated this result tra nsmitted reference range : <=0.5. The reference r christiano was not used to int erpret this result as normal/abnormal . [facility] HospitalDdgaxnyTZRNCKOIPR4333-91-77 10:24:00 Test Item Value Reference Range Interpretation Comments Basophils # (test code 0.1 See_Comment [Aut omated message] The = Basophils #) system which generated this result tra nsmitted reference range : <=0.2. The reference r christiano was not used to int erpret this result as normal/abnormal . [facility] HospitalRfgyeucWFAZWVKKVG4547-78-59 10:24:00 Test Item Value Reference Range Interpretation Comments WBC (test code = WBC) 7.5 3.7-10.4 [facility] HospitalAkwrgxeCNNQZOSEPQ6148-00-67 10:24:00 Test Item Value Reference Range Interpretation Comments RBC (test code = RBC) 3.85 4.20-5.40 [place] 963420-12-07 10:24:00 Test Item Value Reference Range Interpretation Comments Hgb (test code = Hgb) 10.6 12.0-16.0 [place] 963420-12-07 10:24:00 Test Item Value Reference Range Interpretation Comments Hct (test code = Hct) 32.1 36.0-48.0 [place] [address]-12-07 10:24:00 Test Item Value Reference Range Interpretation Comments MCV (test code = MCV) 83.5 80.0-98.0 [place] [address]-12-07 10:24:00 Test Item Value Reference Range Interpretation Comments MCH (test code = MCH) 27.7 pg 27.0-31.0 [place] [address]-12-07 10:24:00 Test Item Value Reference Range Interpretation Comments MCHC (test code = MCHC) 33.1 32.0-36.0 [place] [address]-12-07 10:24:00 Test Item Value Reference Range Interpretation Comments RDW (test code = RDW) 16.8 11.5-14.5 [place] [address]-12-07 10:24:00 Test Item Value Reference Range Interpretation Comments Platelet (test code = Platelet) 185 133-450 [place] 963420-12-07 10:24:00 Test Item Value Reference Range Interpretation Comments MPV (test code = MPV) 8.4 7.4-10.4 [facility]2020-12-07 10:24:00 Test Item Value Reference Range Interpretation Comments Glucose Lvl (test code = Glucose Lvl) 66 70-99 [facility]2020-12-07 10:24:00 Test Item Value Reference Range Interpretation Comments BUN (test code = BUN) 19 7-22 [facility]2020-12-07 10:24:00 Test Item Value Reference Range Interpretation Comments Creatinine Lvl (test code = Creatinine 1.82 0.50-1.40 Lvl) [facility]2020-12-07 10:24:00 Test Item Value Reference Range Interpretation Comments Sodium Lvl (test code = Sodium Lvl) 139 135-145 [place] 457350-12-07 10:24:00 Test Item Value Reference Range Interpretation Comments Potassium Lvl (test code = Potassium 4.2 3.5-5.1 Lvl) [place] 457350-12-07 10:24:00 Test Item Value Reference Range Interpretation Comments Chloride Lvl (test code = Chloride Lvl) 105 95-109 [facility]2020-12-07 10:24:00 Test Item Value Reference Range Interpretation Comments CO2 (test code = CO2) 28 24-32 [facility]2020-12-07 10:24:00 Test Item Value Reference Range Interpretation Comments Calcium Lvl (test code = Calcium Lvl) 8.2 8.5-10.5 [facility]2020-12-07 10:24:00 Test Item Value Reference Range Interpretation Comments AGAP (test code = AGAP) 10.2 10.0-20.0 [facility]2020-12-07 10:24:00 Test Item Value Reference Range Interpretation Comments eGFR (test code = eGFR) 26 [facility] HospitalEbnimamWUBHCHXWKO4868-69-09 10:24:00 Test Item Value Reference Range Interpretation Comments Segs (test code = Segs) 70.6 45.0-75.0 [facility] HospitalMukrfopITJOOLTEJO8031-31-01 10:24:00 Test Item Value Reference Range Interpretation Comments Lymphocytes (test code = Lymphocytes) 13.2 20.0-40.0 [facility] HospitalMyohghxALZAYFPQUG5323-22-75 10:24:00 Test Item Value Reference Range Interpretation Comments Monocytes (test code = Monocytes) 10.9 2.0-12.0 [facility] HospitalBgsnuotBEUHXEYQAN3817-41-00 10:24:00 Test Item Value Reference Range Interpretation Comments Eosinophils (test code = 4.6 See_Comment [A utomated message] The Eosinophils) system which ge nerated this result tra nsmitted reference range : <=4.0. The reference r christiano was not used to int erpret this result as normal/abnormal . [facility] HospitalGofllolFCCHZFFNOA7172-22-75 10:24:00 Test Item Value Reference Range Interpretation Comments Basophils (test code = 0.7 See_Comment [Aut omated message] The Basophils) system which ge nerated this result tra nsmitted reference range : <=1.0. The reference r christiano was not used to int erpret this result as normal/abnormal . [facility] HospitalLxdhawnNHEKZGYLRT0347-25-92 10:24:00 Test Item Value Reference Range Interpretation Comments Neutrophils # (test code = Neutrophils 5.3 1.5-8.1 #) [facility] HospitalFerlophJPFAJGVUSF8012-60-03 10:24:00 Test Item Value Reference Range Interpretation Comments Lymphocytes # (test code = Lymphocytes 1.0 1.0-5.5 #) [facility] HospitalAqoitdvXTNUYCMQYV4579-75-21 10:24:00 Test Item Value Reference Range Interpretation Comments Monocytes # (test code 0.8 See_Comment [Aut omated message] The = Monocytes #) system which generated this result tra nsmitted reference range : <=0.8. The reference r christiano was not used to int erpret this result as normal/abnormal . [facility] HospitalYwaeoyiJFWYRYNEXJ4250-35-48 10:24:00 Test Item Value Reference Range Interpretation Comments Eosinophils # (test code 0.3 See_Comment [A utomated message] The = Eosinophils #) system whic h generated this result tra nsmitted reference range : <=0.5. The reference r christiano was not used to int erpret this result as normal/abnormal . [facility] HospitalKfiebbcZPOXAIYGRD2071-70-78 10:24:00 Test Item Value Reference Range Interpretation Comments Basophils # (test code 0.1 See_Comment [Aut omated message] The = Basophils #) system which generated this result tra nsmitted reference range : <=0.2. The reference r christiano was not used to int erpret this result as normal/abnormal . [facility] HospitalYcjdchhKDPQRXSTCM7048-33-18 10:24:00 Test Item Value Reference Range Interpretation Comments WBC (test code = WBC) 7.5 3.7-10.4 [facility] HospitalKgsspxbKSRJXHGTMC7709-50-42 10:24:00 Test Item Value Reference Range Interpretation Comments RBC (test code = RBC) 3.85 4.20-5.40 [facility] HospitalTvsmxksTEELECAOYM5905-38-91 10:24:00 Test Item Value Reference Range Interpretation Comments Hgb (test code = Hgb) 10.6 12.0-16.0 [facility] HospitalWytczumZDGJAJGBSG2012-56-81 10:24:00 Test Item Value Reference Range Interpretation Comments Hct (test code = Hct) 32.1 36.0-48.0 [place] 963420-12-07 10:24:00 Test Item Value Reference Range Interpretation Comments MCV (test code = MCV) 83.5 80.0-98.0 [place] 963420-12-07 10:24:00 Test Item Value Reference Range Interpretation Comments MCH (test code = MCH) 27.7 pg 27.0-31.0 [facility] HospitalHvhueyqPISBFPCMIN3852-77-26 10:24:00 Test Item Value Reference Range Interpretation Comments MCHC (test code = MCHC) 33.1 32.0-36.0 [facility] HospitalUquxzevZKHRSEHRLS9582-62-13 10:24:00 Test Item Value Reference Range Interpretation Comments RDW (test code = RDW) 16.8 11.5-14.5 [facility] HospitalRxqsmazCBHAGSXZRD5842-52-95 10:24:00 Test Item Value Reference Range Interpretation Comments Platelet (test code = Platelet) 185 133-450 [facility] HospitalJncfxzsXVVSAXIGFL6558-60-53 10:24:00 Test Item Value Reference Range Interpretation Comments MPV (test code = MPV) 8.4 7.4-10.4 [facility]2020-12-07 10:24:00 Test Item Value Reference Range Interpretation Comments Glucose Lvl (test code = Glucose Lvl) 66 70-99 [facility]2020-12-07 10:24:00 Test Item Value Reference Range Interpretation Comments BUN (test code = BUN) 19 7-22 [facility]2020-12-07 10:24:00 Test Item Value Reference Range Interpretation Comments Creatinine Lvl (test code = Creatinine 1.82 0.50-1.40 Lvl) [facility]2020-12-07 10:24:00 Test Item Value Reference Range Interpretation Comments Sodium Lvl (test code = Sodium Lvl) 139 135-145 [facility]2020-12-07 10:24:00 Test Item Value Reference Range Interpretation Comments Potassium Lvl (test code = Potassium 4.2 3.5-5.1 Lvl) [facility]2020-12-07 10:24:00 Test Item Value Reference Range Interpretation Comments Chloride Lvl (test code = Chloride Lvl) 105 95-109 [facility]2020-12-07 10:24:00 Test Item Value Reference Range Interpretation Comments CO2 (test code = CO2) 28 24-32 [facility]2020-12-07 10:24:00 Test Item Value Reference Range Interpretation Comments Calcium Lvl (test code = Calcium Lvl) 8.2 8.5-10.5 [facility]2020-12-07 10:24:00 Test Item Value Reference Range Interpretation Comments AGAP (test code = AGAP) 10.2 10.0-20.0 [facility]2020-12-07 10:24:00 Test Item Value Reference Range Interpretation Comments eGFR (test code = eGFR) 26 [place] 963420-12-07 10:24:00 Test Item Value Reference Range Interpretation Comments Segs (test code = Segs) 70.6 45.0-75.0 [place] 963420-12-07 10:24:00 Test Item Value Reference Range Interpretation Comments Lymphocytes (test code = Lymphocytes) 13.2 20.0-40.0 [place] 963420-12-07 10:24:00 Test Item Value Reference Range Interpretation Comments Monocytes (test code = Monocytes) 10.9 2.0-12.0 [place] 963420-12-07 10:24:00 Test Item Value Reference Range Interpretation Comments Eosinophils (test code = Eosinophils) 4.6 <=4.0 [facility] HospitalSggkteoGRSWPQFUDX4509-49-27 10:24:00 Test Item Value Reference Range Interpretation Comments Basophils (test code = Basophils) 0.7 <=1.0 [place] 963420-12-07 10:24:00 Test Item Value Reference Range Interpretation Comments Neutrophils # (test code = Neutrophils 5.3 1.5-8.1 #) [facility] HospitalJelkfhdNTFEFOFBYU7172-15-48 10:24:00 Test Item Value Reference Range Interpretation Comments Lymphocytes # (test code = Lymphocytes 1.0 1.0-5.5 #) [facility] HospitalOhfgozxCJLMXIIRXP9763-11-61 10:24:00 Test Item Value Reference Range Interpretation Comments Monocytes # (test code = Monocytes #) 0.8 <=0.8 [place] [address]-12-07 10:24:00 Test Item Value Reference Range Interpretation Comments Eosinophils # (test code = Eosinophils 0.3 <=0.5 #) [place] [address]-12-07 10:24:00 Test Item Value Reference Range Interpretation Comments Basophils # (test code = Basophils #) 0.1 <=0.2 [place] [address]-12-07 10:24:00 Test Item Value Reference Range Interpretation Comments WBC (test code = WBC) 7.5 3.7-10.4 [place] 963420-12-07 10:24:00 Test Item Value Reference Range Interpretation Comments RBC (test code = RBC) 3.85 4.20-5.40 [place] 963420-12-07 10:24:00 Test Item Value Reference Range Interpretation Comments Hgb (test code = Hgb) 10.6 12.0-16.0 [place] [address]-12-07 10:24:00 Test Item Value Reference Range Interpretation Comments Hct (test code = Hct) 32.1 36.0-48.0 [place] [address]-12-07 10:24:00 Test Item Value Reference Range Interpretation Comments MCV (test code = MCV) 83.5 80.0-98.0 [place] [address]-12-07 10:24:00 Test Item Value Reference Range Interpretation Comments MCH (test code = MCH) 27.7 pg 27.0-31.0 [place] [address]-12-07 10:24:00 Test Item Value Reference Range Interpretation Comments MCHC (test code = MCHC) 33.1 32.0-36.0 [place] [address]-12-07 10:24:00 Test Item Value Reference Range Interpretation Comments RDW (test code = RDW) 16.8 11.5-14.5 [place] [address]-12-07 10:24:00 Test Item Value Reference Range Interpretation Comments Platelet (test code = Platelet) 185 133-450 [facility] HospitalRwfarzjJCIYICLWUS9345-07-28 10:24:00 Test Item Value Reference Range Interpretation Comments MPV (test code = MPV) 8.4 7.4-10.4 [facility]2020-12-07 10:24:00 Test Item Value Reference Range Interpretation Comments Glucose Lvl (test code = Glucose Lvl) 66 70-99 [facility]2020-12-07 10:24:00 Test Item Value Reference Range Interpretation Comments BUN (test code = BUN) 19 7-22 [facility]2020-12-07 10:24:00 Test Item Value Reference Range Interpretation Comments Creatinine Lvl (test code = Creatinine 1.82 0.50-1.40 Lvl) [facility]2020-12-07 10:24:00 Test Item Value Reference Range Interpretation Comments Sodium Lvl (test code = Sodium Lvl) 139 135-145 [place] 457350-12-07 10:24:00 Test Item Value Reference Range Interpretation Comments Potassium Lvl (test code = Potassium 4.2 3.5-5.1 Lvl) [place] 457350-12-07 10:24:00 Test Item Value Reference Range Interpretation Comments Chloride Lvl (test code = Chloride Lvl) 105 95-109 [place] 457350-12-07 10:24:00 Test Item Value Reference Range Interpretation Comments CO2 (test code = CO2) 28 24-32 [place] 457350-12-07 10:24:00 Test Item Value Reference Range Interpretation Comments Calcium Lvl (test code = Calcium Lvl) 8.2 8.5-10.5 [place] 457350-12-07 10:24:00 Test Item Value Reference Range Interpretation Comments AGAP (test code = AGAP) 10.2 10.0-20.0 [place] 457350-12-07 10:24:00 Test Item Value Reference Range Interpretation Comments eGFR (test code = eGFR) 26 [place] 963420-12-07 10:24:00 Test Item Value Reference Range Interpretation Comments Segs (test code = Segs) 70.6 45.0-75.0 [place] 963420-12-07 10:24:00 Test Item Value Reference Range Interpretation Comments Lymphocytes (test code = Lymphocytes) 13.2 20.0-40.0 [place] [address]-12-07 10:24:00 Test Item Value Reference Range Interpretation Comments Monocytes (test code = Monocytes) 10.9 2.0-12.0 [place] [address]-12-07 10:24:00 Test Item Value Reference Range Interpretation Comments Eosinophils (test code = 4.6 See_Comment [A utomated message] The Eosinophils) system which ge nerated this result tra nsmitted reference range : <=4.0. The reference r christiano was not used to int erpret this result as normal/abnormal . [place] 963420-12-07 10:24:00 Test Item Value Reference Range Interpretation Comments Basophils (test code = 0.7 See_Comment [Aut omated message] The Basophils) system which ge nerated this result tra nsmitted reference range : <=1.0. The reference r christiano was not used to int erpret this result as normal/abnormal . [facility]taelbfUKPWRSBKFM4600[facility]47-[facility] 10:24:00 Test Item Value Reference Range Interpretation Comments Neutrophils # (test code = Neutrophils 5.3 1.5-8.1 #) [facility]FwlhfccBTAKKYJCGO8710-35-53 10:24:00 Test Item Value Reference Range Interpretation Comments Lymphocytes # (test code = Lymphocytes 1.0 1.0-5.5 #) [facility] HospitalZkpmwbfQAZXRVDJEK8745-19-37 10:24:00 Test Item Value Reference Range Interpretation Comments Monocytes # (test code 0.8 See_Comment [Aut omated message] The = Monocytes #) system which generated this result tra nsmitted reference range : <=0.8. The reference r christiano was not used to int erpret this result as normal/abnormal . [facility] HospitalYbhgqmqUVWBOOZJLY7948-77-00 10:24:00 Test Item Value Reference Range Interpretation Comments Eosinophils # (test code 0.3 See_Comment [A utomated message] The = Eosinophils #) system whic h generated this result tra nsmitted reference range : <=0.5. The reference r christiano was not used to int erpret this result as normal/abnormal . [facility] HospitalUismynxCSBDUZTLLR9552-45-77 10:24:00 Test Item Value Reference Range Interpretation Comments Basophils # (test code 0.1 See_Comment [Aut omated message] The = Basophils #) system which generated this result tra nsmitted reference range : <=0.2. The reference r christiano was not used to int erpret this result as normal/abnormal . [facility] HospitalTvqpbbuJAEOGZLWBI8829-48-20 10:24:00 Test Item Value Reference Range Interpretation Comments WBC (test code = WBC) 7.5 3.7-10.4 [facility] HospitalPcxhgcpIDAKKEUWDZ6794-78-54 10:24:00 Test Item Value Reference Range Interpretation Comments RBC (test code = RBC) 3.85 4.20-5.40 [place] 963420-12-07 10:24:00 Test Item Value Reference Range Interpretation Comments Hgb (test code = Hgb) 10.6 12.0-16.0 [place] [address]-12-07 10:24:00 Test Item Value Reference Range Interpretation Comments Hct (test code = Hct) 32.1 36.0-48.0 [place] [address]-12-07 10:24:00 Test Item Value Reference Range Interpretation Comments MCV (test code = MCV) 83.5 80.0-98.0 [place] 963420-12-07 10:24:00 Test Item Value Reference Range Interpretation Comments MCH (test code = MCH) 27.7 pg 27.0-31.0 [place] 963420-12-07 10:24:00 Test Item Value Reference Range Interpretation Comments MCHC (test code = MCHC) 33.1 32.0-36.0 [place] [address]-12-07 10:24:00 Test Item Value Reference Range Interpretation Comments RDW (test code = RDW) 16.8 11.5-14.5 [place] [address]-12-07 10:24:00 Test Item Value Reference Range Interpretation Comments Platelet (test code = Platelet) 185 133-450 [facility] HospitalEgwmdsbPFLRPLBPQI9761-05-17 10:24:00 Test Item Value Reference Range Interpretation Comments MPV (test code = MPV) 8.4 7.4-10.4 [facility]2020-12-07 10:24:00 Test Item Value Reference Range Interpretation Comments Glucose Lvl (test code = Glucose Lvl) 66 70-99 [facility]2020-12-07 10:24:00 Test Item Value Reference Range Interpretation Comments BUN (test code = BUN) 19 7-22 [facility]2020-12-07 10:24:00 Test Item Value Reference Range Interpretation Comments Creatinine Lvl (test code = Creatinine 1.82 0.50-1.40 Lvl) [facility]2020-12-07 10:24:00 Test Item Value Reference Range Interpretation Comments Sodium Lvl (test code = Sodium Lvl) 139 135-145 [facility]2020-12-07 10:24:00 Test Item Value Reference Range Interpretation Comments Potassium Lvl (test code = Potassium 4.2 3.5-5.1 Lvl) [place] 457350-12-07 10:24:00 Test Item Value Reference Range Interpretation Comments Chloride Lvl (test code = Chloride Lvl) 105 95-109 [facility]2020-12-07 10:24:00 Test Item Value Reference Range Interpretation Comments CO2 (test code = CO2) 28 24-32 [facility]2020-12-07 10:24:00 Test Item Value Reference Range Interpretation Comments Calcium Lvl (test code = Calcium Lvl) 8.2 8.5-10.5 [place] 457350-12-07 10:24:00 Test Item Value Reference Range Interpretation Comments AGAP (test code = AGAP) 10.2 10.0-20.0 [facility]2020-12-07 10:24:00 Test Item Value Reference Range Interpretation Comments eGFR (test code = eGFR) 26 [facility] HospitalJbttfizNGOTNKVPNC1191-72-43 10:24:00 Test Item Value Reference Range Interpretation Comments Segs (test code = Segs) 70.6 45.0-75.0 [facility] HospitalApimlvnRORSIHSODZ2420-34-82 10:24:00 Test Item Value Reference Range Interpretation Comments Lymphocytes (test code = Lymphocytes) 13.2 20.0-40.0 [facility] HospitalWzwboarWTVMZOEEIA4141-16-66 10:24:00 Test Item Value Reference Range Interpretation Comments Monocytes (test code = Monocytes) 10.9 2.0-12.0 [facility] HospitalGylajluPGYKRUOMYT9405-77-79 10:24:00 Test Item Value Reference Range Interpretation Comments Eosinophils (test code = Eosinophils) 4.6 <=4.0 [facility] HospitalTyumupiFOCHIPJMVO0195-46-05 10:24:00 Test Item Value Reference Range Interpretation Comments Basophils (test code = Basophils) 0.7 <=1.0 [facility] HospitalCzubomqKCDWVFVZXJ3151-10-52 10:24:00 Test Item Value Reference Range Interpretation Comments Neutrophils # (test code = Neutrophils 5.3 1.5-8.1 #) [place] 963420-12-07 10:24:00 Test Item Value Reference Range Interpretation Comments Lymphocytes # (test code = Lymphocytes 1.0 1.0-5.5 #) [facility] HospitalQsjcbwpDCFPODIERA1760-34-53 10:24:00 Test Item Value Reference Range Interpretation Comments Monocytes # (test code = Monocytes #) 0.8 <=0.8 [place] [address]-12-07 10:24:00 Test Item Value Reference Range Interpretation Comments Eosinophils # (test code = Eosinophils 0.3 <=0.5 #) [address]12-07 10:24:00 Test Item Value Reference Range Interpretation Comments Basophils # (test code = Basophils #) 0.1 <=0.2 [facility] HospitalClfpimaQKXCEOUPOF5484-45-80 10:24:00 Test Item Value Reference Range Interpretation Comments WBC (test code = WBC) 7.5 3.7-10.4 [facility] HospitalFccqvgnMPVZMUYUUS4715-48-86 10:24:00 Test Item Value Reference Range Interpretation Comments RBC (test code = RBC) 3.85 4.20-5.40 [facility] HospitalBipthdbECGOWTTJUC0087-05-54 10:24:00 Test Item Value Reference Range Interpretation Comments Hgb (test code = Hgb) 10.6 12.0-16.0 [facility] HospitalGeuzqcsPFSRGQANLS0566-68-92 10:24:00 Test Item Value Reference Range Interpretation Comments Hct (test code = Hct) 32.1 36.0-48.0 [facility] HospitalXyvqfbiNDYWCJHWTO8949-25-42 10:24:00 Test Item Value Reference Range Interpretation Comments MCV (test code = MCV) 83.5 80.0-98.0 [facility] HospitalSpiobawQOWBXYYJRB0205-50-94 10:24:00 Test Item Value Reference Range Interpretation Comments MCH (test code = MCH) 27.7 pg 27.0-31.0 [facility] HospitalKwmbmfcXWKADJCSLS8028-59-23 10:24:00 Test Item Value Reference Range Interpretation Comments MCHC (test code = MCHC) 33.1 32.0-36.0 [facility] HospitalQclzctzIHKHQFNATV8591-19-28 10:24:00 Test Item Value Reference Range Interpretation Comments RDW (test code = RDW) 16.8 11.5-14.5 [facility] HospitalGfkvnntYFBFFVECFT2177-59-71 10:24:00 Test Item Value Reference Range Interpretation Comments Platelet (test code = Platelet) 185 133-450 [facility] HospitalLajndwcSUWYVVZYNY0711-11-33 10:24:00 Test Item Value Reference Range Interpretation Comments MPV (test code = MPV) 8.4 7.4-10.4 [facility]2020-12-06 09:53:13 Test Item Value Reference Range Interpretation Comments Magnesium Lvl (test code = Magnesium 2.2 1.8-2.4 Lvl) [facility]2020-12-06 09:53:13 Test Item Value Reference Range Interpretation Comments Phosphorus (test code = Phosphorus) 2.9 2.5-4.5 [place] [address]-12-06 09:53:13 Test Item Value Reference Range Interpretation Comments Glucose Lvl (test code = Glucose Lvl) 102 70-99 [place] [address]-12-06 09:53:13 Test Item Value Reference Range Interpretation Comments BUN (test code = BUN) 17 7-22 [place] [address]-12-06 09:53:13 Test Item Value Reference Range Interpretation Comments Creatinine Lvl (test code = Creatinine 1.51 0.50-1.40 Lvl) [address]12-06 09:53:13 Test Item Value Reference Range Interpretation Comments Sodium Lvl (test code = Sodium Lvl) 140 135-145 [place] [address]-12-06 09:53:13 Test Item Value Reference Range Interpretation Comments Potassium Lvl (test code = Potassium 3.5 3.5-5.1 Lvl) [place] [address]-12-06 09:53:13 Test Item Value Reference Range Interpretation Comments Chloride Lvl (test code = Chloride Lvl) 106 95-109 [place] [address]-12-06 09:53:13 Test Item Value Reference Range Interpretation Comments CO2 (test code = CO2) 29 24-32 [place] [address]-12-06 09:53:13 Test Item Value Reference Range Interpretation Comments Calcium Lvl (test code = Calcium Lvl) 8.3 8.5-10.5 [place] 457350-12-06 09:53:13 Test Item Value Reference Range Interpretation Comments AGAP (test code = AGAP) 8.5 10.0-20.0 [place] [address]-12-06 09:53:13 Test Item Value Reference Range Interpretation Comments eGFR (test code = eGFR) 33 [place] [address]-12-06 09:53:13 Test Item Value Reference Range Interpretation Comments WBC (test code = WBC) 8.7 3.7-10.[address]12-06 09:53:13 Test Item Value Reference Range Interpretation Comments RBC (test code = RBC) 3.96 4.20-5.40 [place] [address]-12-06 09:53:13 Test Item Value Reference Range Interpretation Comments Hgb (test code = Hgb) 10.7 12.0-16.0 [place] [address]-12-06 09:53:13 Test Item Value Reference Range Interpretation Comments Hct (test code = Hct) 32.8 36.0-48.0 [place] 963420-12-06 09:53:13 Test Item Value Reference Range Interpretation Comments MCV (test code = MCV) 83.0 80.0-98.0 [place] [address]-12-06 09:53:13 Test Item Value Reference Range Interpretation Comments MCH (test code = MCH) 26.9 pg 27.0-31.0 [place] 963420-12-06 09:53:13 Test Item Value Reference Range Interpretation Comments MCHC (test code = MCHC) 32.4 32.0-36.0 [place] 963420-12-06 09:53:13 Test Item Value Reference Range Interpretation Comments RDW (test code = RDW) 16.5 11.5-14.5 [place] [address]-12-06 09:53:13 Test Item Value Reference Range Interpretation Comments Platelet (test code = Platelet) 157 133-450 [facility] HospitalCvkrecxGKGUPCPXJO2134-52-74 09:53:13 Test Item Value Reference Range Interpretation Comments MPV (test code = MPV) 7.5 7.4-10.4 [place] [address]-12-06 09:53:13 Test Item Value Reference Range Interpretation Comments Neutrophils # (test code = Neutrophils 7.2 1.5-8.1 #) [place] 963420-12-06 09:53:13 Test Item Value Reference Range Interpretation Comments Lymphocytes # (test code = Lymphocytes 0.9 1.0-5.5 #) [place] [address]-12-06 09:53:13 Test Item Value Reference Range Interpretation Comments Monocytes # (test code 0.5 See_Comment [Aut omated message] The = Monocytes #) system which generated this result tra nsmitted reference range : <=0.8. The reference r christiano was not used to int erpret this result as normal/abnormal . [place] 963420-12-06 09:53:13 Test Item Value Reference Range Interpretation Comments Basophils # (test code 0.1 See_Comment [Aut omated message] The = Basophils #) system which generated this result tra nsmitted reference range : <=0.2. The reference r christiano was not used to int erpret this result as normal/abnormal . [facility] HospitalJsyduwlRDRHQQJPZH6496-07-41 09:53:13 Test Item Value Reference Range Interpretation Comments Segs (test code = Segs) 83.0 45.0-75.0 [facility] HospitalLbcbqyqLAJCQXJHGG6970-99-39 09:53:13 Test Item Value Reference Range Interpretation Comments Bands (test code = 0.0 See_Comment [Automat ed message] The Bands) system which ge nerated this result transmit sheba reference range : <=11.0. The reference r christiano was not used to interpr et this result as edy l/abnormal. [facility] HospitalCkslqepMEPLONPAGI8500-97-85 09:53:13 Test Item Value Reference Range Interpretation Comments Lymphocytes (test code = Lymphocytes) 10.0 20.0-40.0 [facility] HospitalHlotbooVPTMHGWASO1815-54-05 09:53:13 Test Item Value Reference Range Interpretation Comments Monocytes (test code = Monocytes) 6.0 2.0-12.0 [facility] HospitalTrmktniVKANWCSSGG4729-88-18 09:53:13 Test Item Value Reference Range Interpretation Comments Basophils (test code = 1.0 See_Comment [Aut omated message] The Basophils) system which ge nerated this result tra nsmitted reference range : <=1.0. The reference r christiano was not used to int erpret this result as normal/abnormal . [facility] HospitalJuwfpknEZITRKCGWP4438-70-33 09:53:13 Test Item Value Reference Range Interpretation Comments Atypical Lymphs (test code = Atypical 0.0 Lymphs) [facility] HospitalAvyjricAYHQQNVSPT2637-78-95 09:53:13 Test Item Value Reference Range Interpretation Comments RBC Morph (test code = Normal (09/05/20 3:53 RBC Morph) AM) [facility] HospitalOgrlqjoUCSSICLJEV8422-01-72 09:53:13 Test Item Value Reference Range Interpretation Comments Plt Morph (test code = Normal (09/05/20 3:53 Plt Morph) AM) [facility]2020-12-06 09:53:13 Test Item Value Reference Range Interpretation Comments Magnesium Lvl (test code = Magnesium 2.2 1.8-2.4 Lvl) [place] [address]-12-06 09:53:13 Test Item Value Reference Range Interpretation Comments Phosphorus (test code = Phosphorus) 2.9 2.5-4.5 [place] 457350-12-06 09:53:13 Test Item Value Reference Range Interpretation Comments Glucose Lvl (test code = Glucose Lvl) 102 70-99 [place] [address]-12-06 09:53:13 Test Item Value Reference Range Interpretation Comments BUN (test code = BUN) 17 7-22 [place] [address]-12-06 09:53:13 Test Item Value Reference Range Interpretation Comments Creatinine Lvl (test code = Creatinine 1.51 0.50-1.40 Lvl) [place] [address]-12-06 09:53:13 Test Item Value Reference Range Interpretation Comments Sodium Lvl (test code = Sodium Lvl) 140 135-145 [place] [address]-12-06 09:53:13 Test Item Value Reference Range Interpretation Comments Potassium Lvl (test code = Potassium 3.5 3.5-5.1 Lvl) [place] 457350-12-06 09:53:13 Test Item Value Reference Range Interpretation Comments Chloride Lvl (test code = Chloride Lvl) 106 95-109 [place] 457350-12-06 09:53:13 Test Item Value Reference Range Interpretation Comments CO2 (test code = CO2) 29 24-32 [place] [address]-12-06 09:53:13 Test Item Value Reference Range Interpretation Comments Calcium Lvl (test code = Calcium Lvl) 8.3 8.5-10.5 [place] [address]-12-06 09:53:13 Test Item Value Reference Range Interpretation Comments AGAP (test code = AGAP) 8.5 10.0-20.0 [place] [address]-12-06 09:53:13 Test Item Value Reference Range Interpretation Comments eGFR (test code = eGFR) 33 [place] [address]-12-06 09:53:13 Test Item Value Reference Range Interpretation Comments Magnesium Lvl (test code = Magnesium 2.2 1.8-2.4 Lvl) [place] [address]-12-06 09:53:13 Test Item Value Reference Range Interpretation Comments Phosphorus (test code = Phosphorus) 2.9 2.5-4.5 [place] [address]-12-06 09:53:13 Test Item Value Reference Range Interpretation Comments Glucose Lvl (test code = Glucose Lvl) 102 70-99 [place] [address]-12-06 09:53:13 Test Item Value Reference Range Interpretation Comments BUN (test code = BUN) 17 7-22 [place] [address]-12-06 09:53:13 Test Item Value Reference Range Interpretation Comments Creatinine Lvl (test code = Creatinine 1.51 0.50-1.40 Lvl) [place] [address]-12-06 09:53:13 Test Item Value Reference Range Interpretation Comments Sodium Lvl (test code = Sodium Lvl) 140 135-145 [place] 457350-12-06 09:53:13 Test Item Value Reference Range Interpretation Comments Potassium Lvl (test code = Potassium 3.5 3.5-5.1 Lvl) [place] [address]-12-06 09:53:13 Test Item Value Reference Range Interpretation Comments Chloride Lvl (test code = Chloride Lvl) 106 95-109 [place] [address]-12-06 09:53:13 Test Item Value Reference Range Interpretation Comments WBC (test code = WBC) 8.7 3.7-10.4 [place] 457350-12-06 09:53:13 Test Item Value Reference Range Interpretation Comments CO2 (test code = CO2) 29 24-32 [place] 457350-12-06 09:53:13 Test Item Value Reference Range Interpretation Comments Calcium Lvl (test code = Calcium Lvl) 8.3 8.5-10.5 [place] [address]-12-06 09:53:13 Test Item Value Reference Range Interpretation Comments AGAP (test code = AGAP) 8.5 10.0-20.0 [place] [address]-12-06 09:53:13 Test Item Value Reference Range Interpretation Comments eGFR (test code = eGFR) 33 [place] [address]-12-06 09:53:13 Test Item Value Reference Range Interpretation Comments WBC (test code = WBC) 8.7 3.7-10.4 [place] [address]-12-06 09:53:13 Test Item Value Reference Range Interpretation Comments RBC (test code = RBC) 3.96 4.20-5.40 [facility] HospitalDtyxizbKHSIFGPETZ5860-86-58 09:53:13 Test Item Value Reference Range Interpretation Comments Hgb (test code = Hgb) 10.7 12.0-16.0 [facility] HospitalRhrnlpdFZYXCZSFGN8574-61-79 09:53:13 Test Item Value Reference Range Interpretation Comments Hct (test code = Hct) 32.8 36.0-48.0 [facility] HospitalJvuwcleKYOIKRDQIB6874-66-03 09:53:13 Test Item Value Reference Range Interpretation Comments MCV (test code = MCV) 83.0 80.0-98.0 [facility] HospitalQiblgwuWFLFGAVVZT7672-05-84 09:53:13 Test Item Value Reference Range Interpretation Comments MCH (test code = MCH) 26.9 pg 27.0-31.0 [facility] HospitalHkvpzjvEAGYNNSPGL9829-25-87 09:53:13 Test Item Value Reference Range Interpretation Comments RBC (test code = RBC) 3.96 4.20-5.40 [facility] HospitalGgudphsGGIKMCASIF4408-63-52 09:53:13 Test Item Value Reference Range Interpretation Comments MCHC (test code = MCHC) 32.4 32.0-36.0 [facility] HospitalLojdgawBTRMJKIYJJ6165-32-01 09:53:13 Test Item Value Reference Range Interpretation Comments RDW (test code = RDW) 16.5 11.5-14.5 [facility] HospitalGtsutnbSQRLKFHYOC5063-52-52 09:53:13 Test Item Value Reference Range Interpretation Comments Platelet (test code = Platelet) 157 133-450 [facility] HospitalBcyspcuMNGRSUBFXS1148-85-53 09:53:13 Test Item Value Reference Range Interpretation Comments MPV (test code = MPV) 7.5 7.4-10.4 [place] [address]-12-06 09:53:13 Test Item Value Reference Range Interpretation Comments Neutrophils # (test code = Neutrophils 7.2 1.5-8.1 #) [facility] HospitalSpnimesXAFKNVZALH0953-39-18 09:53:13 Test Item Value Reference Range Interpretation Comments Lymphocytes # (test code = Lymphocytes 0.9 1.0-5.5 #) [facility] HospitalKuvufnkPZYUXLKHSB6677-35-60 09:53:13 Test Item Value Reference Range Interpretation Comments Monocytes # (test code 0.5 See_Comment [Aut omated message] The = Monocytes #) system which generated this result tra nsmitted reference range : <=0.8. The reference r christiano was not used to int erpret this result as normal/abnormal . [place] [address]-12-06 09:53:13 Test Item Value Reference Range Interpretation Comments Basophils # (test code 0.1 See_Comment [Aut omated message] The = Basophils #) system which generated this result tra nsmitted reference range : <=0.2. The reference r christiano was not used to int erpret this result as normal/abnormal . [place] [address]-12-06 09:53:13 Test Item Value Reference Range Interpretation Comments Segs (test code = Segs) 83.0 45.0-75.0 [place] [address]-12-06 09:53:13 Test Item Value Reference Range Interpretation Comments Bands (test code = 0.0 See_Comment [Automat ed message] The Bands) system which ge nerated this result transmit sheba reference range : <=11.0. The reference r christiano was not used to interpr et this result as edy l/abnormal. [facility] HospitalOibgxazXJVAJXFGNK1562-34-34 09:53:13 Test Item Value Reference Range Interpretation Comments Hgb (test code = Hgb) 10.7 12.0-16.0 [place] [address]-12-06 09:53:13 Test Item Value Reference Range Interpretation Comments Lymphocytes (test code = Lymphocytes) 10.0 20.0-40.0 [place] [address]-12-06 09:53:13 Test Item Value Reference Range Interpretation Comments Monocytes (test code = Monocytes) 6.0 2.0-12.0 [place] [address]-12-06 09:53:13 Test Item Value Reference Range Interpretation Comments Basophils (test code = 1.0 See_Comment [Aut omated message] The Basophils) system which ge nerated this result tra nsmitted reference range : <=1.0. The reference r christiano was not used to int erpret this result as normal/abnormal . [place] [address]-12-06 09:53:13 Test Item Value Reference Range Interpretation Comments Atypical Lymphs (test code = Atypical 0.0 Lymphs) [facility] HospitalZkxjwqnMUDOSZHQKO9087-97-16 09:53:13 Test Item Value Reference Range Interpretation Comments RBC Morph (test code = Normal (09/05/20 3:53 RBC Morph) AM) [place] 963420-12-06 09:53:13 Test Item Value Reference Range Interpretation Comments Plt Morph (test code = Normal (09/05/20 3:53 Plt Morph) AM) [place] 963420-12-06 09:53:13 Test Item Value Reference Range Interpretation Comments Hct (test code = Hct) 32.8 36.0-48.0 [place] [address]-12-06 09:53:13 Test Item Value Reference Range Interpretation Comments MCV (test code = MCV) 83.0 80.0-98.0 [place] [address]-12-06 09:53:13 Test Item Value Reference Range Interpretation Comments MCH (test code = MCH) 26.9 pg 27.0-31.0 [place] [address]-12-06 09:53:13 Test Item Value Reference Range Interpretation Comments MCHC (test code = MCHC) 32.4 32.0-36.0 [place] [address]-12-06 09:53:13 Test Item Value Reference Range Interpretation Comments RDW (test code = RDW) 16.5 11.5-14.5 [place] [address]-12-06 09:53:13 Test Item Value Reference Range Interpretation Comments Platelet (test code = Platelet) 157 133-450 [place] 48561-12-06 09:53:13 Test Item Value Reference Range Interpretation Comments MPV (test code = MPV) 7.5 7.4-10.4 [place] [address]-12-06 09:53:13 Test Item Value Reference Range Interpretation Comments Neutrophils # (test code = Neutrophils 7.2 1.5-8.1 #) [place] 963420-12-06 09:53:13 Test Item Value Reference Range Interpretation Comments Lymphocytes # (test code = Lymphocytes 0.9 1.0-5.5 #) [facility]151[facility] 09:53:13 Test Item Value Reference Range Interpretation Comments Monocytes # (test code 0.5 See_Comment [Aut omated message] The = Monocytes #) system which generated this result tra nsmitted reference range : <=0.8. The reference r christiano was not used to int erpret this result as normal/abnormal . [place] 963420-12-06 09:53:13 Test Item Value Reference Range Interpretation Comments Basophils # (test code 0.1 See_Comment [Aut omated message] The = Basophils #) system which generated this result tra nsmitted reference range : <=0.2. The reference r christiano was not used to int erpret this result as normal/abnormal . [facility]IpfkycgNTQIVYILJF9434-22-37 09:53:13 Test Item Value Reference Range Interpretation Comments Segs (test code = Segs) 83.0 45.0-75.0 [place] [address]-12-06 09:53:13 Test Item Value Reference Range Interpretation Comments Bands (test code = 0.0 See_Comment [Automat ed message] The Bands) system which ge nerated this result transmit sheba reference range : <=11.0. The reference r christiano was not used to interpr et this result as edy l/abnormal. [facility]ZjbdoykAQZCUXZSXB4969-21-80 09:53:13 Test Item Value Reference Range Interpretation Comments Lymphocytes (test code = Lymphocytes) 10.0 20.0-40.0 [place] [address]-12-06 09:53:13 Test Item Value Reference Range Interpretation Comments Monocytes (test code = Monocytes) 6.0 2.0-12.0 [place] [address]-12-06 09:53:13 Test Item Value Reference Range Interpretation Comments Basophils (test code = 1.0 See_Comment [Aut omated message] The Basophils) system which ge nerated this result tra nsmitted reference range : <=1.0. The reference r christiano was not used to int erpret this result as normal/abnormal . [facility] HospitalJlcwbozBEKLONZXCT7542-93-68 09:53:13 Test Item Value Reference Range Interpretation Comments Atypical Lymphs (test code = Atypical 0.0 Lymphs) [place] 963420-12-06 09:53:13 Test Item Value Reference Range Interpretation Comments RBC Morph (test code = Normal (09/05/20 3:53 RBC Morph) AM) [place] 963420-12-06 09:53:13 Test Item Value Reference Range Interpretation Comments Plt Morph (test code = Normal (09/05/20 3:53 Plt Morph) AM) [facility]2020-12-06 09:53:13 Test Item Value Reference Range Interpretation Comments Magnesium Lvl (test code = Magnesium 2.2 1.8-2.4 Lvl) [facility]2020-12-06 09:53:13 Test Item Value Reference Range Interpretation Comments Phosphorus (test code = Phosphorus) 2.9 2.5-4.5 [place] 457350-12-06 09:53:13 Test Item Value Reference Range Interpretation Comments Glucose Lvl (test code = Glucose Lvl) 102 70-99 [place] 457350-12-06 09:53:13 Test Item Value Reference Range Interpretation Comments BUN (test code = BUN) 17 7-22 [place] 457350-12-06 09:53:13 Test Item Value Reference Range Interpretation Comments Creatinine Lvl (test code = Creatinine 1.51 0.50-1.40 Lvl) [facility]2020-12-06 09:53:13 Test Item Value Reference Range Interpretation Comments Sodium Lvl (test code = Sodium Lvl) 140 135-145 [place] 457350-12-06 09:53:13 Test Item Value Reference Range Interpretation Comments Potassium Lvl (test code = Potassium 3.5 3.5-5.1 Lvl) [place] 457350-12-06 09:53:13 Test Item Value Reference Range Interpretation Comments Chloride Lvl (test code = Chloride Lvl) 106 95-109 [place] 457350-12-06 09:53:13 Test Item Value Reference Range Interpretation Comments CO2 (test code = CO2) 29 24-32 [place] 457350-12-06 09:53:13 Test Item Value Reference Range Interpretation Comments Calcium Lvl (test code = Calcium Lvl) 8.3 8.5-10.5 [place] 457350-12-06 09:53:13 Test Item Value Reference Range Interpretation Comments AGAP (test code = AGAP) 8.5 10.0-20.0 [place] 457350-12-06 09:53:13 Test Item Value Reference Range Interpretation Comments eGFR (test code = eGFR) 33 [place] [address]-12-06 09:53:13 Test Item Value Reference Range Interpretation Comments WBC (test code = WBC) 8.7 3.7-10.4 [place] [address]-12-06 09:53:13 Test Item Value Reference Range Interpretation Comments RBC (test code = RBC) 3.96 4.20-5.40 [place] [address]-12-06 09:53:13 Test Item Value Reference Range Interpretation Comments Hgb (test code = Hgb) 10.7 12.0-16.0 [place] [address]-12-06 09:53:13 Test Item Value Reference Range Interpretation Comments Hct (test code = Hct) 32.8 36.0-48.0 [place] [address]-12-06 09:53:13 Test Item Value Reference Range Interpretation Comments MCV (test code = MCV) 83.0 80.0-98.0 [place] [address]-12-06 09:53:13 Test Item Value Reference Range Interpretation Comments MCH (test code = MCH) 26.9 pg 27.0-31.0 [place] [address]-12-06 09:53:13 Test Item Value Reference Range Interpretation Comments MCHC (test code = MCHC) 32.4 32.0-36.0 [place] [address]-12-06 09:53:13 Test Item Value Reference Range Interpretation Comments RDW (test code = RDW) 16.5 11.5-14.5 [place] [address]-12-06 09:53:13 Test Item Value Reference Range Interpretation Comments Platelet (test code = Platelet) 157 133-450 [place] 963420-12-06 09:53:13 Test Item Value Reference Range Interpretation Comments MPV (test code = MPV) 7.5 7.4-10.4 [place] [address]-12-06 09:53:13 Test Item Value Reference Range Interpretation Comments Neutrophils # (test code = Neutrophils 7.2 1.5-8.1 #) [place] [address]-12-06 09:53:13 Test Item Value Reference Range Interpretation Comments Lymphocytes # (test code = Lymphocytes 0.9 1.0-5.5 #) [place] [address]-12-06 09:53:13 Test Item Value Reference Range Interpretation Comments Monocytes # (test code 0.5 See_Comment [Aut omated message] The = Monocytes #) system which generated this result tra nsmitted reference range : <=0.8. The reference r christiano was not used to int erpret this result as normal/abnormal . [facility] HospitalSevajapTEBNWRQPYJ6908-58-74 09:53:13 Test Item Value Reference Range Interpretation Comments Basophils # (test code 0.1 See_Comment [Aut omated message] The = Basophils #) system which generated this result tra nsmitted reference range : <=0.2. The reference r christiano was not used to int erpret this result as normal/abnormal . [facility] HospitalMysyrcxRTVQEJVBSB2978-72-92 09:53:13 Test Item Value Reference Range Interpretation Comments Segs (test code = Segs) 83.0 45.0-75.0 [facility] HospitalGvufsfuQWQMBAWEOF6034-04-78 09:53:13 Test Item Value Reference Range Interpretation Comments Bands (test code = 0.0 See_Comment [Automat ed message] The Bands) system which ge nerated this result transmit sheba reference range : <=11.0. The reference r christiano was not used to interpr et this result as edy l/abnormal. [facility] HospitalIswnebzLFXQBOOGGG1053-86-64 09:53:13 Test Item Value Reference Range Interpretation Comments Lymphocytes (test code = Lymphocytes) 10.0 20.0-40.0 [place] 963420-12-06 09:53:13 Test Item Value Reference Range Interpretation Comments Monocytes (test code = Monocytes) 6.0 2.0-12.0 [place] 963420-12-06 09:53:13 Test Item Value Reference Range Interpretation Comments Basophils (test code = 1.0 See_Comment [Aut omated message] The Basophils) system which ge nerated this result tra nsmitted reference range : <=1.0. The reference r christiano was not used to int erpret this result as normal/abnormal . [facility] HospitalYpdnwghMXUORHJHZA8324-65-13 09:53:13 Test Item Value Reference Range Interpretation Comments Atypical Lymphs (test code = Atypical 0.0 Lymphs) [facility] HospitalPgdenqbNJALBRAHGH8504-05-40 09:53:13 Test Item Value Reference Range Interpretation Comments RBC Morph (test code = Normal (09/05/20 3:53 RBC Morph) AM) [facility]SM[facility]RAFZ6471-60-35 09:53:13 Test Item Value Reference Range Interpretation Comments Plt Morph (test code = Normal (09/05/20 3:53 Plt Morph) AM) [place] [address]-12-06 09:53:13 Test Item Value Reference Range Interpretation Comments Magnesium Lvl (test code = Magnesium 2.2 1.8-2.4 Lvl) [place] 457350-12-06 09:53:13 Test Item Value Reference Range Interpretation Comments Phosphorus (test code = Phosphorus) 2.9 2.5-4.5 [place] [address]-12-06 09:53:13 Test Item Value Reference Range Interpretation Comments Glucose Lvl (test code = Glucose Lvl) 102 70-99 [place] 457350-12-06 09:53:13 Test Item Value Reference Range Interpretation Comments BUN (test code = BUN) 17 7-22 [place] [address]-12-06 09:53:13 Test Item Value Reference Range Interpretation Comments Creatinine Lvl (test code = Creatinine 1.51 0.50-1.40 Lvl) [place] 457350-12-06 09:53:13 Test Item Value Reference Range Interpretation Comments Sodium Lvl (test code = Sodium Lvl) 140 135-145 [place] 457350-12-06 09:53:13 Test Item Value Reference Range Interpretation Comments Potassium Lvl (test code = Potassium 3.5 3.5-5.1 Lvl) [place] 457350-12-06 09:53:13 Test Item Value Reference Range Interpretation Comments Chloride Lvl (test code = Chloride Lvl) 106 95-109 [place] 457350-12-06 09:53:13 Test Item Value Reference Range Interpretation Comments CO2 (test code = CO2) 29 24-32 [place] 457350-12-06 09:53:13 Test Item Value Reference Range Interpretation Comments Calcium Lvl (test code = Calcium Lvl) 8.3 8.5-10.5 [place] [address]-12-06 09:53:13 Test Item Value Reference Range Interpretation Comments AGAP (test code = AGAP) 8.5 10.0-20.0 [place] 457350-12-06 09:53:13 Test Item Value Reference Range Interpretation Comments eGFR (test code = eGFR) 33 [place] [address]-12-06 09:53:13 Test Item Value Reference Range Interpretation Comments WBC (test code = WBC) 8.7 3.7-10.4 [place] [address]-12-06 09:53:13 Test Item Value Reference Range Interpretation Comments RBC (test code = RBC) 3.96 4.20-5.40 [place] [address]-12-06 09:53:13 Test Item Value Reference Range Interpretation Comments Hgb (test code = Hgb) 10.7 12.0-16.0 [place] [address]-12-06 09:53:13 Test Item Value Reference Range Interpretation Comments Hct (test code = Hct) 32.8 36.0-48.0 [place] [address]-12-06 09:53:13 Test Item Value Reference Range Interpretation Comments MCV (test code = MCV) 83.0 80.0-98.0 [place] [address]-12-06 09:53:13 Test Item Value Reference Range Interpretation Comments MCH (test code = MCH) 26.9 pg 27.0-31.0 [place] 963420-12-06 09:53:13 Test Item Value Reference Range Interpretation Comments MCHC (test code = MCHC) 32.4 32.0-36.0 [place] [address]-12-06 09:53:13 Test Item Value Reference Range Interpretation Comments RDW (test code = RDW) 16.5 11.5-14.5 [place] [address]-12-06 09:53:13 Test Item Value Reference Range Interpretation Comments Platelet (test code = Platelet) 157 133-450 [facility] HospitalGxubzkuUCHGFNBPXI1612-39-25 09:53:13 Test Item Value Reference Range Interpretation Comments MPV (test code = MPV) 7.5 7.4-10.4 [place] 963420-12-06 09:53:13 Test Item Value Reference Range Interpretation Comments Neutrophils # (test code = Neutrophils 7.2 1.5-8.1 #) [place] 963420-12-06 09:53:13 Test Item Value Reference Range Interpretation Comments Lymphocytes # (test code = Lymphocytes 0.9 1.0-5.5 #) [facility] HospitalHazqqfhLHTGXESMYR2435-48-35 09:53:13 Test Item Value Reference Range Interpretation Comments Monocytes # (test code 0.5 See_Comment [Aut omated message] The = Monocytes #) system which generated this result tra nsmitted reference range : <=0.8. The reference r christiano was not used to int erpret this result as normal/abnormal . [facility] HospitalNeheuylDILRPKGMVN1712-31-04 09:53:13 Test Item Value Reference Range Interpretation Comments Basophils # (test code 0.1 See_Comment [Aut omated message] The = Basophils #) system which generated this result tra nsmitted reference range : <=0.2. The reference r christiano was not used to int erpret this result as normal/abnormal . [facility] HospitalBlnoznxPJUBOXFUOW0977-86-23 09:53:13 Test Item Value Reference Range Interpretation Comments Segs (test code = Segs) 83.0 45.0-75.0 [place] 963420-12-06 09:53:13 Test Item Value Reference Range Interpretation Comments Bands (test code = 0.0 See_Comment [Automat ed message] The Bands) system which ge nerated this result transmit sheba reference range : <=11.0. The reference r christiano was not used to interpr et this result as edy l/abnormal. [facility] HospitalDvxmvifKFQOKWXWSL7760-67-64 09:53:13 Test Item Value Reference Range Interpretation Comments Lymphocytes (test code = Lymphocytes) 10.0 20.0-40.0 [place] 963420-12-06 09:53:13 Test Item Value Reference Range Interpretation Comments Monocytes (test code = Monocytes) 6.0 2.0-12.0 [place] [address]-12-06 09:53:13 Test Item Value Reference Range Interpretation Comments Basophils (test code = 1.0 See_Comment [Aut omated message] The Basophils) system which ge nerated this result tra nsmitted reference range : <=1.0. The reference r christiano was not used to int erpret this result as normal/abnormal . [facility] HospitalPncuunyFYCJLOFGWN9906-91-44 09:53:13 Test Item Value Reference Range Interpretation Comments Atypical Lymphs (test code = Atypical 0.0 Lymphs) [place] [address]-12-06 09:53:13 Test Item Value Reference Range Interpretation Comments RBC Morph (test code = Normal (09/05/20 3:53 RBC Morph) AM) [place] [address]-12-06 09:53:13 Test Item Value Reference Range Interpretation Comments Plt Morph (test code = Normal (09/05/20 3:53 Plt Morph) AM) [place] [address]-12-06 09:53:13 Test Item Value Reference Range Interpretation Comments Magnesium Lvl (test code = Magnesium 2.2 1.8-2.4 Lvl) [place] [address]-12-06 09:53:13 Test Item Value Reference Range Interpretation Comments Phosphorus (test code = Phosphorus) 2.9 2.5-4.5 [place] [address]-12-06 09:53:13 Test Item Value Reference Range Interpretation Comments Glucose Lvl (test code = Glucose Lvl) 102 70-99 [place] [address]-12-06 09:53:13 Test Item Value Reference Range Interpretation Comments BUN (test code = BUN) 17 7-22 [place] [address]-12-06 09:53:13 Test Item Value Reference Range Interpretation Comments Creatinine Lvl (test code = Creatinine 1.51 0.50-1.40 Lvl) [place] [address]-12-06 09:53:13 Test Item Value Reference Range Interpretation Comments Sodium Lvl (test code = Sodium Lvl) 140 135-145 [place] [address]-12-06 09:53:13 Test Item Value Reference Range Interpretation Comments Potassium Lvl (test code = Potassium 3.5 3.5-5.1 Lvl) [place] [address]-12-06 09:53:13 Test Item Value Reference Range Interpretation Comments Chloride Lvl (test code = Chloride Lvl) 106 95-109 [place] [address]-12-06 09:53:13 Test Item Value Reference Range Interpretation Comments CO2 (test code = CO2) 29 24-32 [place] [address]-12-06 09:53:13 Test Item Value Reference Range Interpretation Comments Calcium Lvl (test code = Calcium Lvl) 8.3 8.5-10.5 [place] [address]-12-06 09:53:13 Test Item Value Reference Range Interpretation Comments AGAP (test code = AGAP) 8.5 10.0-20.0 [facility]2020-12-06 09:53:13 Test Item Value Reference Range Interpretation Comments eGFR (test code = eGFR) 33 [place] [address]-12-06 09:53:13 Test Item Value Reference Range Interpretation Comments WBC (test code = WBC) 8.7 3.7-10.4 [place] [address]-12-06 09:53:13 Test Item Value Reference Range Interpretation Comments RBC (test code = RBC) 3.96 4.20-5.40 [place] [address]-12-06 09:53:13 Test Item Value Reference Range Interpretation Comments Hgb (test code = Hgb) 10.7 12.0-16.0 [place] [address]-12-06 09:53:13 Test Item Value Reference Range Interpretation Comments Hct (test code = Hct) 32.8 36.0-48.0 [place] [address]-12-06 09:53:13 Test Item Value Reference Range Interpretation Comments MCV (test code = MCV) 83.0 80.0-98.0 [place] [address]-12-06 09:53:13 Test Item Value Reference Range Interpretation Comments MCH (test code = MCH) 26.9 pg 27.0-31.0 [place] 963420-12-06 09:53:13 Test Item Value Reference Range Interpretation Comments MCHC (test code = MCHC) 32.4 32.0-36.0 [place] 963420-12-06 09:53:13 Test Item Value Reference Range Interpretation Comments RDW (test code = RDW) 16.5 11.5-14.5 [place] [address]-12-06 09:53:13 Test Item Value Reference Range Interpretation Comments Platelet (test code = Platelet) 157 133-450 [place] [address]-12-06 09:53:13 Test Item Value Reference Range Interpretation Comments MPV (test code = MPV) 7.5 7.4-10.4 [place] [address]-12-06 09:53:13 Test Item Value Reference Range Interpretation Comments Neutrophils # (test code = Neutrophils 7.2 1.5-8.1 #) [place] [address]-12-06 09:53:13 Test Item Value Reference Range Interpretation Comments Lymphocytes # (test code = Lymphocytes 0.9 1.0-5.5 #) [place] 963420-12-06 09:53:13 Test Item Value Reference Range Interpretation Comments Monocytes # (test code 0.5 See_Comment [Aut omated message] The = Monocytes #) system which generated this result tra nsmitted reference range : <=0.8. The reference r christiano was not used to int erpret this result as normal/abnormal . [place] [address]-12-06 09:53:13 Test Item Value Reference Range Interpretation Comments Basophils # (test code 0.1 See_Comment [Aut omated message] The = Basophils #) system which generated this result tra nsmitted reference range : <=0.2. The reference r christiano was not used to int erpret this result as normal/abnormal . [place] 963420-12-06 09:53:13 Test Item Value Reference Range Interpretation Comments Segs (test code = Segs) 83.0 45.0-75.0 [place] 963420-12-06 09:53:13 Test Item Value Reference Range Interpretation Comments Bands (test code = 0.0 See_Comment [Automat ed message] The Bands) system which ge nerated this result transmit sheba reference range : <=11.0. The reference r christiano was not used to interpr et this result as edy l/abnormal. [facility] HospitalHnfumqqNUYAKZBADO2521-85-11 09:53:13 Test Item Value Reference Range Interpretation Comments Lymphocytes (test code = Lymphocytes) 10.0 20.0-40.0 [place] [address]-12-06 09:53:13 Test Item Value Reference Range Interpretation Comments Monocytes (test code = Monocytes) 6.0 2.0-12.0 [place] [address]-12-06 09:53:13 Test Item Value Reference Range Interpretation Comments Basophils (test code = 1.0 See_Comment [Aut omated message] The Basophils) system which ge nerated this result tra nsmitted reference range : <=1.0. The reference r christiano was not used to int erpret this result as normal/abnormal . [place] [address]-12-06 09:53:13 Test Item Value Reference Range Interpretation Comments Atypical Lymphs (test code = Atypical 0.0 Lymphs) [place] [address]-12-06 09:53:13 Test Item Value Reference Range Interpretation Comments RBC Morph (test code = Normal (09/05/20 3:53 RBC Morph) AM) [place] [address]-12-06 09:53:13 Test Item Value Reference Range Interpretation Comments Plt Morph (test code = Normal (09/05/20 3:53 Plt Morph) AM) [place] 457350-12-06 09:53:13 Test Item Value Reference Range Interpretation Comments Magnesium Lvl (test code = Magnesium 2.2 1.8-2.4 Lvl) [address]12-06 09:53:13 Test Item Value Reference Range Interpretation Comments Phosphorus (test code = Phosphorus) 2.9 2.5-4.5 [place] [address]-12-06 09:53:13 Test Item Value Reference Range Interpretation Comments Magnesium Lvl (test code = Magnesium 2.2 1.8-2.4 Lvl) [place] [address]-12-06 09:53:13 Test Item Value Reference Range Interpretation Comments Phosphorus (test code = Phosphorus) 2.9 2.5-4.5 [place] [address]-12-06 09:53:13 Test Item Value Reference Range Interpretation Comments Glucose Lvl (test code = Glucose Lvl) 102 70-99 [place] [address]-12-06 09:53:13 Test Item Value Reference Range Interpretation Comments BUN (test code = BUN) 17 7-22 [place] [address]-12-06 09:53:13 Test Item Value Reference Range Interpretation Comments Creatinine Lvl (test code = Creatinine 1.51 0.50-1.40 Lvl) [place] [address]-12-06 09:53:13 Test Item Value Reference Range Interpretation Comments Sodium Lvl (test code = Sodium Lvl) 140 135-145 [place] [address]-12-06 09:53:13 Test Item Value Reference Range Interpretation Comments Glucose Lvl (test code = Glucose Lvl) 102 70-99 [place] [address]-12-06 09:53:13 Test Item Value Reference Range Interpretation Comments Potassium Lvl (test code = Potassium 3.5 3.5-5.1 Lvl) [address]12-06 09:53:13 Test Item Value Reference Range Interpretation Comments Chloride Lvl (test code = Chloride Lvl) 106 95-109 [address]12-06 09:53:13 Test Item Value Reference Range Interpretation Comments CO2 (test code = CO2) 29 24-32 [address]12-06 09:53:13 Test Item Value Reference Range Interpretation Comments Calcium Lvl (test code = Calcium Lvl) 8.3 8.5-10.5 [address]12-06 09:53:13 Test Item Value Reference Range Interpretation Comments AGAP (test code = AGAP) 8.5 10.0-20.0 [address]12-06 09:53:13 Test Item Value Reference Range Interpretation Comments eGFR (test code = eGFR) 33 [place] [address]-12-06 09:53:13 Test Item Value Reference Range Interpretation Comments WBC (test code = WBC) 8.7 3.7-10.[address]12-06 09:53:13 Test Item Value Reference Range Interpretation Comments RBC (test code = RBC) 3.96 4.20-5.40 [place] [address]-12-06 09:53:13 Test Item Value Reference Range Interpretation Comments Hgb (test code = Hgb) 10.7 12.0-16.[address]12-06 09:53:13 Test Item Value Reference Range Interpretation Comments Hct (test code = Hct) 32.8 36.0-48.0 [address]12-06 09:53:13 Test Item Value Reference Range Interpretation Comments BUN (test code = BUN) 17 7-22 [place] [address]-12-06 09:53:13 Test Item Value Reference Range Interpretation Comments MCV (test code = MCV) 83.0 80.0-98.0 [address]12-06 09:53:13 Test Item Value Reference Range Interpretation Comments MCH (test code = MCH) 26.9 pg 27.0-31.0 [place] [address]-12-06 09:53:13 Test Item Value Reference Range Interpretation Comments MCHC (test code = MCHC) 32.4 32.0-36.0 [facility]PqdorgsPJEETKKSYP1561-43-05 09:53:13 Test Item Value Reference Range Interpretation Comments RDW (test code = RDW) 16.5 11.5-14.5 [facility] HospitalHajcmkcRWLLLHWHIE5017-24-56 09:53:13 Test Item Value Reference Range Interpretation Comments Platelet (test code = Platelet) 157 133-450 [facility] HospitalQhwketbFNMBCUYQIQ1581-96-49 09:53:13 Test Item Value Reference Range Interpretation Comments MPV (test code = MPV) 7.5 7.4-10.4 [place] 963420-12-06 09:53:13 Test Item Value Reference Range Interpretation Comments Neutrophils # (test code = Neutrophils 7.2 1.5-8.1 #) [facility] HospitalOserphgPYPCYUJHSQ6104-50-14 09:53:13 Test Item Value Reference Range Interpretation Comments Lymphocytes # (test code = Lymphocytes 0.9 1.0-5.5 #) [facility] HospitalTmekcsbMUREIWPIGG2838-87-66 09:53:13 Test Item Value Reference Range Interpretation Comments Monocytes # (test code 0.5 See_Comment [Aut omated message] The = Monocytes #) system which generated this result tra nsmitted reference range : <=0.8. The reference r christiano was not used to int erpret this result as normal/abnormal . [facility] HospitalBtzrlbuHROSWKDXPV7485-26-49 09:53:13 Test Item Value Reference Range Interpretation Comments Basophils # (test code 0.1 See_Comment [Aut omated message] The = Basophils #) system which generated this result tra nsmitted reference range : <=0.2. The reference r christiano was not used to int erpret this result as normal/abnormal . [facility]2020-12-06 09:53:13 Test Item Value Reference Range Interpretation Comments Creatinine Lvl (test code = Creatinine 1.51 0.50-1.40 Lvl) [facility] HospitalWyihxupLXVRSTXSXU2769-84-54 09:53:13 Test Item Value Reference Range Interpretation Comments Segs (test code = Segs) 83.0 45.0-75.0 [place] [place] [address]-[place]-06 09:53:13 Test Item Value Reference Range Interpretation Comments Bands (test code = 0.0 See_Comment [Automat ed message] The Bands) system which ge nerated this result transmit sheba reference range : <=11.0. The reference r christiano was not used to interpr et this result as edy l/abnormal. [place] 963420-12-06 09:53:13 Test Item Value Reference Range Interpretation Comments Lymphocytes (test code = Lymphocytes) 10.0 20.0-40.0 [place] [address]-12-06 09:53:13 Test Item Value Reference Range Interpretation Comments Monocytes (test code = Monocytes) 6.0 2.0-12.0 [place] [address]-12-06 09:53:13 Test Item Value Reference Range Interpretation Comments Basophils (test code = 1.0 See_Comment [Aut omated message] The Basophils) system which ge nerated this result tra nsmitted reference range : <=1.0. The reference r christiano was not used to int erpret this result as normal/abnormal . [place] 963420-12-06 09:53:13 Test Item Value Reference Range Interpretation Comments Atypical Lymphs (test code = Atypical 0.0 Lymphs) [place] [address]-12-06 09:53:13 Test Item Value Reference Range Interpretation Comments RBC Morph (test code = Normal (09/05/20 3:53 RBC Morph) AM) [place] [address]-12-06 09:53:13 Test Item Value Reference Range Interpretation Comments Plt Morph (test code = Normal (09/05/20 3:53 Plt Morph) AM) [place] 457350-12-06 09:53:13 Test Item Value Reference Range Interpretation Comments Sodium Lvl (test code = Sodium Lvl) 140 135-145 [place] 457350-12-06 09:53:13 Test Item Value Reference Range Interpretation Comments Potassium Lvl (test code = Potassium 3.5 3.5-5.1 Lvl) [place] 457350-12-06 09:53:13 Test Item Value Reference Range Interpretation Comments Chloride Lvl (test code = Chloride Lvl) 106 95-109 [place] 457350-12-06 09:53:13 Test Item Value Reference Range Interpretation Comments CO2 (test code = CO2) 29 24-32 [place] 457350-12-06 09:53:13 Test Item Value Reference Range Interpretation Comments Calcium Lvl (test code = Calcium Lvl) 8.3 8.5-10.5 [place] 457350-12-06 09:53:13 Test Item Value Reference Range Interpretation Comments AGAP (test code = AGAP) 8.5 10.0-20.0 [address]12-06 09:53:13 Test Item Value Reference Range Interpretation Comments eGFR (test code = eGFR) 33 [place] [address]-12-06 09:53:13 Test Item Value Reference Range Interpretation Comments WBC (test code = WBC) 8.7 3.7-10.4 [place] [address]-12-06 09:53:13 Test Item Value Reference Range Interpretation Comments RBC (test code = RBC) 3.96 4.20-5.40 [place] [address]-12-06 09:53:13 Test Item Value Reference Range Interpretation Comments Hgb (test code = Hgb) 10.7 12.0-16.0 [place] [address]-12-06 09:53:13 Test Item Value Reference Range Interpretation Comments Hct (test code = Hct) 32.8 36.0-48.0 [place] [address]-12-06 09:53:13 Test Item Value Reference Range Interpretation Comments MCV (test code = MCV) 83.0 80.0-98.0 [place] [address]-12-06 09:53:13 Test Item Value Reference Range Interpretation Comments MCH (test code = MCH) 26.9 pg 27.0-31.0 [place] [address]-12-06 09:53:13 Test Item Value Reference Range Interpretation Comments MCHC (test code = MCHC) 32.4 32.0-36.0 [place] [address]-12-06 09:53:13 Test Item Value Reference Range Interpretation Comments RDW (test code = RDW) 16.5 11.5-14.5 [place] [address]-12-06 09:53:13 Test Item Value Reference Range Interpretation Comments Platelet (test code = Platelet) 157 133-450 [place] [address]-12-06 09:53:13 Test Item Value Reference Range Interpretation Comments MPV (test code = MPV) 7.5 7.4-10.4 [place] [address]-12-06 09:53:13 Test Item Value Reference Range Interpretation Comments Neutrophils # (test code = Neutrophils 7.2 1.5-8.1 #) [place] [address]-12-06 09:53:13 Test Item Value Reference Range Interpretation Comments Lymphocytes # (test code = Lymphocytes 0.9 1.0-5.5 #) [place] [address]-12-06 09:53:13 Test Item Value Reference Range Interpretation Comments Monocytes # (test code 0.5 See_Comment [Aut omated message] The = Monocytes #) system which generated this result tra nsmitted reference range : <=0.8. The reference r christiano was not used to int erpret this result as normal/abnormal . [place] [address]-12-06 09:53:13 Test Item Value Reference Range Interpretation Comments Basophils # (test code 0.1 See_Comment [Aut omated message] The = Basophils #) system which generated this result tra nsmitted reference range : <=0.2. The reference r christiano was not used to int erpret this result as normal/abnormal . [facility]:53:13 Test Item Value Reference Range Interpretation Comments Segs (test code = Segs) 83.0 45.0-75.0 [place] [address]-12-06 09:53:13 Test Item Value Reference Range Interpretation Comments Bands (test code = 0.0 See_Comment [Automat ed message] The Bands) system which ge nerated this result transmit sheba reference range : <=11.0. The reference r christiano was not used to interpr et this result as edy l/abnormal. [place] 963420-12-06 09:53:13 Test Item Value Reference Range Interpretation Comments Lymphocytes (test code = Lymphocytes) 10.0 20.0-40.0 [place] 963420-12-06 09:53:13 Test Item Value Reference Range Interpretation Comments Monocytes (test code = Monocytes) 6.0 2.0-12.0 [place] [address]-12-06 09:53:13 Test Item Value Reference Range Interpretation Comments Basophils (test code = 1.0 See_Comment [Aut omated message] The Basophils) system which ge nerated this result tra nsmitted reference range : <=1.0. The reference r christiano was not used to int erpret this result as normal/abnormal . [place] 963420-12-06 09:53:13 Test Item Value Reference Range Interpretation Comments Atypical Lymphs (test code = Atypical 0.0 Lymphs) [place] [address]-12-06 09:53:13 Test Item Value Reference Range Interpretation Comments RBC Morph (test code = Normal (09/05/20 3:53 RBC Morph) AM) [place] [address]-12-06 09:53:13 Test Item Value Reference Range Interpretation Comments Plt Morph (test code = Normal (09/05/20 3:53 Plt Morph) AM) [place] 457350-12-06 09:53:13 Test Item Value Reference Range Interpretation Comments Magnesium Lvl (test code = Magnesium 2.2 1.8-2.4 Lvl) [place] 457350-12-06 09:53:13 Test Item Value Reference Range Interpretation Comments Phosphorus (test code = Phosphorus) 2.9 2.5-4.5 [place] [address]-12-06 09:53:13 Test Item Value Reference Range Interpretation Comments Glucose Lvl (test code = Glucose Lvl) 102 70-99 [place] 457350-12-06 09:53:13 Test Item Value Reference Range Interpretation Comments BUN (test code = BUN) 17 7-22 [place] [address]-12-06 09:53:13 Test Item Value Reference Range Interpretation Comments Creatinine Lvl (test code = Creatinine 1.51 0.50-1.40 Lvl) [place] 457350-12-06 09:53:13 Test Item Value Reference Range Interpretation Comments Sodium Lvl (test code = Sodium Lvl) 140 135-145 [place] [address]-12-06 09:53:13 Test Item Value Reference Range Interpretation Comments Potassium Lvl (test code = Potassium 3.5 3.5-5.1 Lvl) [place] [address]-12-06 09:53:13 Test Item Value Reference Range Interpretation Comments Chloride Lvl (test code = Chloride Lvl) 106 95-109 [place] [address]-12-06 09:53:13 Test Item Value Reference Range Interpretation Comments CO2 (test code = CO2) 29 24-32 [place] [address]-12-06 09:53:13 Test Item Value Reference Range Interpretation Comments Calcium Lvl (test code = Calcium Lvl) 8.3 8.5-10.5 [place] [address]-12-06 09:53:13 Test Item Value Reference Range Interpretation Comments AGAP (test code = AGAP) 8.5 10.0-20.0 [place] 457350-12-06 09:53:13 Test Item Value Reference Range Interpretation Comments eGFR (test code = eGFR) 33 [place] [address]-12-06 09:53:13 Test Item Value Reference Range Interpretation Comments WBC (test code = WBC) 8.7 3.7-10.4 [place] [address]-12-06 09:53:13 Test Item Value Reference Range Interpretation Comments RBC (test code = RBC) 3.96 4.20-5.40 [place] [address]-12-06 09:53:13 Test Item Value Reference Range Interpretation Comments Hgb (test code = Hgb) 10.7 12.0-16.0 [place] [address]-12-06 09:53:13 Test Item Value Reference Range Interpretation Comments Hct (test code = Hct) 32.8 36.0-48.0 [place] [address]-12-06 09:53:13 Test Item Value Reference Range Interpretation Comments MCV (test code = MCV) 83.0 80.0-98.0 [place] [address]-12-06 09:53:13 Test Item Value Reference Range Interpretation Comments MCH (test code = MCH) 26.9 pg 27.0-31.0 [place] [address]-12-06 09:53:13 Test Item Value Reference Range Interpretation Comments MCHC (test code = MCHC) 32.4 32.0-36.0 [place] [address]-12-06 09:53:13 Test Item Value Reference Range Interpretation Comments RDW (test code = RDW) 16.5 11.5-14.5 [place] [address]-12-06 09:53:13 Test Item Value Reference Range Interpretation Comments Platelet (test code = Platelet) 157 133-450 [id number] 09:53:13 Test Item Value Reference Range Interpretation Comments MPV (test code = MPV) 7.5 7.4-10.4 [place] 963420-12-06 09:53:13 Test Item Value Reference Range Interpretation Comments Neutrophils # (test code = Neutrophils 7.2 1.5-8.1 #) [facility] HospitalZsgritrFTXXJUKWGR7615-62-36 09:53:13 Test Item Value Reference Range Interpretation Comments Lymphocytes # (test code = Lymphocytes 0.9 1.0-5.5 #) [facility] HospitalSvtbwxqIKNLQJIAEP2106-50-97 09:53:13 Test Item Value Reference Range Interpretation Comments Monocytes # (test code 0.5 See_Comment [Aut omated message] The = Monocytes #) system which generated this result tra nsmitted reference range : <=0.8. The reference r christiano was not used to int erpret this result as normal/abnormal . [facility] HospitalWrwifqrPZJYANTFSR8902-58-80 09:53:13 Test Item Value Reference Range Interpretation Comments Basophils # (test code 0.1 See_Comment [Aut omated message] The = Basophils #) system which generated this result tra nsmitted reference range : <=0.2. The reference r christiano was not used to int erpret this result as normal/abnormal . [facility] HospitalEdnsnmoBEJFUCDUHE9692-54-46 09:53:13 Test Item Value Reference Range Interpretation Comments Segs (test code = Segs) 83.0 45.0-75.0 [place] [address]-12-06 09:53:13 Test Item Value Reference Range Interpretation Comments Bands (test code = 0.0 See_Comment [Automat ed message] The Bands) system which ge nerated this result transmit sheba reference range : <=11.0. The reference r christiano was not used to interpr et this result as edy l/abnormal. [place] 963420-12-06 09:53:13 Test Item Value Reference Range Interpretation Comments Lymphocytes (test code = Lymphocytes) 10.0 20.0-40.0 [place] [address]-12-06 09:53:13 Test Item Value Reference Range Interpretation Comments Monocytes (test code = Monocytes) 6.0 2.0-12.0 [place] [address]-12-06 09:53:13 Test Item Value Reference Range Interpretation Comments Basophils (test code = 1.0 See_Comment [Aut omated message] The Basophils) system which ge nerated this result tra nsmitted reference range : <=1.0. The reference r christiano was not used to int erpret this result as normal/abnormal . [place] [address]-12-06 09:53:13 Test Item Value Reference Range Interpretation Comments Atypical Lymphs (test code = Atypical 0.0 Lymphs) [place] [address]-12-06 09:53:13 Test Item Value Reference Range Interpretation Comments RBC Morph (test code = Normal (09/05/20 3:53 RBC Morph) AM) [place] [address]-12-06 09:53:13 Test Item Value Reference Range Interpretation Comments Plt Morph (test code = Normal (09/05/20 3:53 Plt Morph) AM) [place] 457350-12-06 09:53:13 Test Item Value Reference Range Interpretation Comments Magnesium Lvl (test code = Magnesium 2.2 1.8-2.4 Lvl) [place] 457350-12-06 09:53:13 Test Item Value Reference Range Interpretation Comments Phosphorus (test code = Phosphorus) 2.9 2.5-4.5 [place] 457350-12-06 09:53:13 Test Item Value Reference Range Interpretation Comments Glucose Lvl (test code = Glucose Lvl) 102 70-99 [place] 457350-12-06 09:53:13 Test Item Value Reference Range Interpretation Comments BUN (test code = BUN) 17 7-22 [place] [address]-12-06 09:53:13 Test Item Value Reference Range Interpretation Comments Creatinine Lvl (test code = Creatinine 1.51 0.50-1.40 Lvl) [place] 457350-12-06 09:53:13 Test Item Value Reference Range Interpretation Comments Sodium Lvl (test code = Sodium Lvl) 140 135-145 [place] 457350-12-06 09:53:13 Test Item Value Reference Range Interpretation Comments Potassium Lvl (test code = Potassium 3.5 3.5-5.1 Lvl) [place] [address]-12-06 09:53:13 Test Item Value Reference Range Interpretation Comments Chloride Lvl (test code = Chloride Lvl) 106 95-109 [place] 457350-12-06 09:53:13 Test Item Value Reference Range Interpretation Comments CO2 (test code = CO2) 29 24-32 [place] [address]-12-06 09:53:13 Test Item Value Reference Range Interpretation Comments Calcium Lvl (test code = Calcium Lvl) 8.3 8.5-10.5 [place] [address]-12-06 09:53:13 Test Item Value Reference Range Interpretation Comments AGAP (test code = AGAP) 8.5 10.0-20.0 [place] 457350-12-06 09:53:13 Test Item Value Reference Range Interpretation Comments eGFR (test code = eGFR) 33 [place] 963420-12-06 09:53:13 Test Item Value Reference Range Interpretation Comments WBC (test code = WBC) 8.7 3.7-10.4 [place] [address]-12-06 09:53:13 Test Item Value Reference Range Interpretation Comments RBC (test code = RBC) 3.96 4.20-5.40 [place] [address]-12-06 09:53:13 Test Item Value Reference Range Interpretation Comments Hgb (test code = Hgb) 10.7 12.0-16.0 [place] [address]-12-06 09:53:13 Test Item Value Reference Range Interpretation Comments Hct (test code = Hct) 32.8 36.0-48.0 [place] [address]-12-06 09:53:13 Test Item Value Reference Range Interpretation Comments MCV (test code = MCV) 83.0 80.0-98.0 [place] [address]-12-06 09:53:13 Test Item Value Reference Range Interpretation Comments MCH (test code = MCH) 26.9 pg 27.0-31.0 [place] [address]-12-06 09:53:13 Test Item Value Reference Range Interpretation Comments MCHC (test code = MCHC) 32.4 32.0-36.0 [place] [address]-12-06 09:53:13 Test Item Value Reference Range Interpretation Comments RDW (test code = RDW) 16.5 11.5-14.5 [place] [address]-12-06 09:53:13 Test Item Value Reference Range Interpretation Comments Platelet (test code = Platelet) 157 133-450 [place] 963420-12-06 09:53:13 Test Item Value Reference Range Interpretation Comments MPV (test code = MPV) 7.5 7.4-10.4 [place] [address]-12-06 09:53:13 Test Item Value Reference Range Interpretation Comments Neutrophils # (test code = Neutrophils 7.2 1.5-8.1 #) [place] [address]-12-06 09:53:13 Test Item Value Reference Range Interpretation Comments Lymphocytes # (test code = Lymphocytes 0.9 1.0-5.5 #) [place] 963420-12-06 09:53:13 Test Item Value Reference Range Interpretation Comments Monocytes # (test code 0.5 See_Comment [Aut omated message] The = Monocytes #) system which generated this result tra nsmitted reference range : <=0.8. The reference r christiano was not used to int erpret this result as normal/abnormal . [place] [address]-12-06 09:53:13 Test Item Value Reference Range Interpretation Comments Basophils # (test code 0.1 See_Comment [Aut omated message] The = Basophils #) system which generated this result tra nsmitted reference range : <=0.2. The reference r christiano was not used to int erpret this result as normal/abnormal . [facility] HospitalWlbxxwiBLSRTSOVVE0501-48-56 09:53:13 Test Item Value Reference Range Interpretation Comments Segs (test code = Segs) 83.0 45.0-75.0 [place] [address]-12-06 09:53:13 Test Item Value Reference Range Interpretation Comments Bands (test code = 0.0 See_Comment [Automat ed message] The Bands) system which ge nerated this result transmit sheba reference range : <=11.0. The reference r christiano was not used to interpr et this result as edy l/abnormal. [place] 963420-12-06 09:53:13 Test Item Value Reference Range Interpretation Comments Lymphocytes (test code = Lymphocytes) 10.0 20.0-40.0 [place] [address]-12-06 09:53:13 Test Item Value Reference Range Interpretation Comments Monocytes (test code = Monocytes) 6.0 2.0-12.0 [place] [address]-12-06 09:53:13 Test Item Value Reference Range Interpretation Comments Basophils (test code = 1.0 See_Comment [Aut omated message] The Basophils) system which ge nerated this result tra nsmitted reference range : <=1.0. The reference r christiano was not used to int erpret this result as normal/abnormal . [place] [address]-12-06 09:53:13 Test Item Value Reference Range Interpretation Comments Atypical Lymphs (test code = Atypical 0.0 Lymphs) [place] [address]-12-06 09:53:13 Test Item Value Reference Range Interpretation Comments RBC Morph (test code = Normal (09/05/20 3:53 RBC Morph) AM) [place] [address]-12-06 09:53:13 Test Item Value Reference Range Interpretation Comments Plt Morph (test code = Normal (09/05/20 3:53 Plt Morph) AM) [place] 457350-12-06 09:53:13 Test Item Value Reference Range Interpretation Comments Magnesium Lvl (test code = Magnesium 2.2 1.8-2.4 Lvl) [place] 457350-12-06 09:53:13 Test Item Value Reference Range Interpretation Comments Phosphorus (test code = Phosphorus) 2.9 2.5-4.5 [place] [address]-12-06 09:53:13 Test Item Value Reference Range Interpretation Comments Glucose Lvl (test code = Glucose Lvl) 102 70-99 [place] 457350-12-06 09:53:13 Test Item Value Reference Range Interpretation Comments BUN (test code = BUN) 17 7-22 [place] [address]-12-06 09:53:13 Test Item Value Reference Range Interpretation Comments Creatinine Lvl (test code = Creatinine 1.51 0.50-1.40 Lvl) [place] 457350-12-06 09:53:13 Test Item Value Reference Range Interpretation Comments Sodium Lvl (test code = Sodium Lvl) 140 135-145 [place] 457350-12-06 09:53:13 Test Item Value Reference Range Interpretation Comments Potassium Lvl (test code = Potassium 3.5 3.5-5.1 Lvl) [place] [address]-12-06 09:53:13 Test Item Value Reference Range Interpretation Comments Chloride Lvl (test code = Chloride Lvl) 106 95-109 [place] [address]-12-06 09:53:13 Test Item Value Reference Range Interpretation Comments CO2 (test code = CO2) 29 24-32 [place] [address]-12-06 09:53:13 Test Item Value Reference Range Interpretation Comments Calcium Lvl (test code = Calcium Lvl) 8.3 8.5-10.5 [address]12-06 09:53:13 Test Item Value Reference Range Interpretation Comments AGAP (test code = AGAP) 8.5 10.0-20.0 [place] [address]-12-06 09:53:13 Test Item Value Reference Range Interpretation Comments eGFR (test code = eGFR) 33 [place] [address]-12-06 09:53:13 Test Item Value Reference Range Interpretation Comments WBC (test code = WBC) 8.7 3.7-10.4 [place] [address]-12-06 09:53:13 Test Item Value Reference Range Interpretation Comments RBC (test code = RBC) 3.96 4.20-5.40 [place] [address]-12-06 09:53:13 Test Item Value Reference Range Interpretation Comments Hgb (test code = Hgb) 10.7 12.0-16.[address]12-06 09:53:13 Test Item Value Reference Range Interpretation Comments Hct (test code = Hct) 32.8 36.0-48.0 [place] [address]-12-06 09:53:13 Test Item Value Reference Range Interpretation Comments Magnesium Lvl (test code = Magnesium 2.2 1.8-2.4 Lvl) [place] 457350-12-06 09:53:13 Test Item Value Reference Range Interpretation Comments Phosphorus (test code = Phosphorus) 2.9 2.5-4.5 [place] [address]-12-06 09:53:13 Test Item Value Reference Range Interpretation Comments Glucose Lvl (test code = Glucose Lvl) 102 70-99 [place] [address]-12-06 09:53:13 Test Item Value Reference Range Interpretation Comments BUN (test code = BUN) 17 7-22 [place] [address]-12-06 09:53:13 Test Item Value Reference Range Interpretation Comments Creatinine Lvl (test code = Creatinine 1.51 0.50-1.40 Lvl) [place] [address]-12-06 09:53:13 Test Item Value Reference Range Interpretation Comments MCV (test code = MCV) 83.0 80.0-98.0 [place] [address]-12-06 09:53:13 Test Item Value Reference Range Interpretation Comments Sodium Lvl (test code = Sodium Lvl) 140 135-145 [address]12-06 09:53:13 Test Item Value Reference Range Interpretation Comments Potassium Lvl (test code = Potassium 3.5 3.5-5.1 Lvl) [place] [address]-12-06 09:53:13 Test Item Value Reference Range Interpretation Comments Chloride Lvl (test code = Chloride Lvl) 106 95-109 [place] [address]-12-06 09:53:13 Test Item Value Reference Range Interpretation Comments CO2 (test code = CO2) 29 24-32 [place] [address]-12-06 09:53:13 Test Item Value Reference Range Interpretation Comments Calcium Lvl (test code = Calcium Lvl) 8.3 8.5-10.5 [place] [address]-12-06 09:53:13 Test Item Value Reference Range Interpretation Comments AGAP (test code = AGAP) 8.5 10.0-20.0 [place] [address]-12-06 09:53:13 Test Item Value Reference Range Interpretation Comments eGFR (test code = eGFR) 33 [place] [address]-12-06 09:53:13 Test Item Value Reference Range Interpretation Comments WBC (test code = WBC) 8.7 3.7-10.4 [place] [address]-12-06 09:53:13 Test Item Value Reference Range Interpretation Comments RBC (test code = RBC) 3.96 4.20-5.40 [place] [address]-12-06 09:53:13 Test Item Value Reference Range Interpretation Comments Hgb (test code = Hgb) 10.7 12.0-16.[address]12-06 09:53:13 Test Item Value Reference Range Interpretation Comments MCH (test code = MCH) 26.9 pg 27.0-31.0 [place] [address]-12-06 09:53:13 Test Item Value Reference Range Interpretation Comments Hct (test code = Hct) 32.8 36.0-48.0 [place] [address]-12-06 09:53:13 Test Item Value Reference Range Interpretation Comments MCV (test code = MCV) 83.0 80.0-98.0 [place] [address]-12-06 09:53:13 Test Item Value Reference Range Interpretation Comments MCH (test code = MCH) 26.9 pg 27.0-31.0 [place] 963420-12-06 09:53:13 Test Item Value Reference Range Interpretation Comments MCHC (test code = MCHC) 32.4 32.0-36.0 [place] [address]-12-06 09:53:13 Test Item Value Reference Range Interpretation Comments RDW (test code = RDW) 16.5 11.5-14.5 [place] [address]-12-06 09:53:13 Test Item Value Reference Range Interpretation Comments Platelet (test code = Platelet) 157 133-450 [place] 963420-12-06 09:53:13 Test Item Value Reference Range Interpretation Comments MPV (test code = MPV) 7.5 7.4-10.4 [place] 963420-12-06 09:53:13 Test Item Value Reference Range Interpretation Comments Neutrophils # (test code = Neutrophils 7.2 1.5-8.1 #) [place] 963420-12-06 09:53:13 Test Item Value Reference Range Interpretation Comments Lymphocytes # (test code = Lymphocytes 0.9 1.0-5.5 #) [place] [address]-12-06 09:53:13 Test Item Value Reference Range Interpretation Comments Monocytes # (test code 0.5 See_Comment [Aut omated message] The = Monocytes #) system which generated this result tra nsmitted reference range : <=0.8. The reference r christiano was not used to int erpret this result as normal/abnormal . [place] 963420-12-06 09:53:13 Test Item Value Reference Range Interpretation Comments MCHC (test code = MCHC) 32.4 32.0-36.0 [facility]ukrgroKWTLVZHUSK2366-07-67 09:53:13 Test Item Value Reference Range Interpretation Comments Basophils # (test code 0.1 See_Comment [Aut omated message] The = Basophils #) system which generated this result tra nsmitted reference range : <=0.2. The reference r christiano was not used to int erpret this result as normal/abnormal . [facility] HospitalZcpccqlKPWEFTTOII5049-45-00 09:53:13 Test Item Value Reference Range Interpretation Comments Segs (test code = Segs) 83.0 45.0-75.0 [facility] HospitalTgpqhseMTBMJAQNMR9755-97-75 09:53:13 Test Item Value Reference Range Interpretation Comments Bands (test code = 0.0 See_Comment [Automat ed message] The Bands) system which ge nerated this result transmit sheba reference range : <=11.0. The reference r christiano was not used to interpr et this result as edy l/abnormal. [facility] HospitalWhrvlkxBMRITDYPTK8705-33-58 09:53:13 Test Item Value Reference Range Interpretation Comments Lymphocytes (test code = Lymphocytes) 10.0 20.0-40.0 [facility] HospitalTgwunmvNWJRUKWOYM9238-78-81 09:53:13 Test Item Value Reference Range Interpretation Comments Monocytes (test code = Monocytes) 6.0 2.0-12.0 [facility]goirbuJPXWPUPXNJ5483-08-59 09:53:13 Test Item Value Reference Range Interpretation Comments Basophils (test code = 1.0 See_Comment [Aut omated message] The Basophils) system which ge nerated this result tra nsmitted reference range : <=1.0. The reference r christiano was not used to int erpret this result as normal/abnormal . [facility]NjbqavzXPNDLZGYPC0270-57-97 09:53:13 Test Item Value Reference Range Interpretation Comments Atypical Lymphs (test code = Atypical 0.0 Lymphs) [facility] HospitalYdszoraMEHLBODGRJ4316-42-75 09:53:13 Test Item Value Reference Range Interpretation Comments RBC Morph (test code = Normal (09/05/20 3:53 RBC Morph) AM) [place] 963420-12-06 09:53:13 Test Item Value Reference Range Interpretation Comments Plt Morph (test code = Normal (09/05/20 3:53 Plt Morph) AM) [place] 963420-12-06 09:53:13 Test Item Value Reference Range Interpretation Comments RDW (test code = RDW) 16.5 11.5-14.5 [place] [address]-12-06 09:53:13 Test Item Value Reference Range Interpretation Comments Platelet (test code = Platelet) 157 133-450 [place] [address]-12-06 09:53:13 Test Item Value Reference Range Interpretation Comments MPV (test code = MPV) 7.5 7.4-10.4 [place] [address]-12-06 09:53:13 Test Item Value Reference Range Interpretation Comments Neutrophils # (test code = Neutrophils 7.2 1.5-8.1 #) [address]12-06 09:53:13 Test Item Value Reference Range Interpretation Comments Lymphocytes # (test code = Lymphocytes 0.9 1.0-5.5 #) [place] [address]-12-06 09:53:13 Test Item Value Reference Range Interpretation Comments Monocytes # (test code 0.5 See_Comment [Aut omated message] The = Monocytes #) system which generated this result tra nsmitted reference range : <=0.8. The reference r christiano was not used to int erpret this result as normal/abnormal . [place] [address]-12-06 09:53:13 Test Item Value Reference Range Interpretation Comments Basophils # (test code 0.1 See_Comment [Aut omated message] The = Basophils #) system which generated this result tra nsmitted reference range : <=0.2. The reference r christiano was not used to int erpret this result as normal/abnormal . [place] [address]-12-06 09:53:13 Test Item Value Reference Range Interpretation Comments Segs (test code = Segs) 83.0 45.0-75.0 [place] [address]-12-06 09:53:13 Test Item Value Reference Range Interpretation Comments Bands (test code = 0.0 See_Comment [Automat ed message] The Bands) system which ge nerated this result transmit sheba reference range : <=11.0. The reference r christiano was not used to interpr et this result as edy l/abnormal. [place] 963420-12-06 09:53:13 Test Item Value Reference Range Interpretation Comments Lymphocytes (test code = Lymphocytes) 10.0 20.0-40.0 [place] [address]-12-06 09:53:13 Test Item Value Reference Range Interpretation Comments Monocytes (test code = Monocytes) 6.0 2.0-12.0 [place] [address]-12-06 09:53:13 Test Item Value Reference Range Interpretation Comments Basophils (test code = 1.0 See_Comment [Aut omated message] The Basophils) system which ge nerated this result tra nsmitted reference range : <=1.0. The reference r christiano was not used to int erpret this result as normal/abnormal . [place] 963420-12-06 09:53:13 Test Item Value Reference Range Interpretation Comments Atypical Lymphs (test code = Atypical 0.0 Lymphs) [place] 963420-12-06 09:53:13 Test Item Value Reference Range Interpretation Comments RBC Morph (test code = Normal (09/05/20 3:53 RBC Morph) AM) [place] [address]-12-06 09:53:13 Test Item Value Reference Range Interpretation Comments Plt Morph (test code = Normal (09/05/20 3:53 Plt Morph) AM) [place] 457350-12-06 09:53:13 Test Item Value Reference Range Interpretation Comments Magnesium Lvl (test code = Magnesium 2.2 1.8-2.4 Lvl) [place] 457350-12-06 09:53:13 Test Item Value Reference Range Interpretation Comments Phosphorus (test code = Phosphorus) 2.9 2.5-4.5 [place] [address]-12-06 09:53:13 Test Item Value Reference Range Interpretation Comments Glucose Lvl (test code = Glucose Lvl) 102 70-99 [place] 457350-12-06 09:53:13 Test Item Value Reference Range Interpretation Comments BUN (test code = BUN) 17 7-22 [place] 457350-12-06 09:53:13 Test Item Value Reference Range Interpretation Comments Creatinine Lvl (test code = Creatinine 1.51 0.50-1.40 Lvl) [place] [address]-12-06 09:53:13 Test Item Value Reference Range Interpretation Comments Sodium Lvl (test code = Sodium Lvl) 140 135-145 [address]12-06 09:53:13 Test Item Value Reference Range Interpretation Comments Potassium Lvl (test code = Potassium 3.5 3.5-5.1 Lvl) [address]12-06 09:53:13 Test Item Value Reference Range Interpretation Comments Chloride Lvl (test code = Chloride Lvl) 106 95-109 [place] [address]-12-06 09:53:13 Test Item Value Reference Range Interpretation Comments CO2 (test code = CO2) 29 24-32 [address]12-06 09:53:13 Test Item Value Reference Range Interpretation Comments Calcium Lvl (test code = Calcium Lvl) 8.3 8.5-10.5 [address]12-06 09:53:13 Test Item Value Reference Range Interpretation Comments AGAP (test code = AGAP) 8.5 10.0-20.0 [address]12-06 09:53:13 Test Item Value Reference Range Interpretation Comments eGFR (test code = eGFR) 33 [place] [address]-12-06 09:53:13 Test Item Value Reference Range Interpretation Comments WBC (test code = WBC) 8.7 3.7-10.[address]12-06 09:53:13 Test Item Value Reference Range Interpretation Comments RBC (test code = RBC) 3.96 4.20-5.40 [place] [address]-12-06 09:53:13 Test Item Value Reference Range Interpretation Comments Hgb (test code = Hgb) 10.7 12.0-16.[address]12-06 09:53:13 Test Item Value Reference Range Interpretation Comments Hct (test code = Hct) 32.8 36.0-48.0 [address]12-06 09:53:13 Test Item Value Reference Range Interpretation Comments MCV (test code = MCV) 83.0 80.0-98.0 [address]12-06 09:53:13 Test Item Value Reference Range Interpretation Comments MCH (test code = MCH) 26.9 pg 27.0-31.0 [facility]FocapyfAXYLFJRATP2398-82-96 09:53:13 Test Item Value Reference Range Interpretation Comments MCHC (test code = MCHC) 32.4 32.0-36.0 [facility] HospitalVhhrarmJVWVSKMLKB4568-47-61 09:53:13 Test Item Value Reference Range Interpretation Comments RDW (test code = RDW) 16.5 11.5-14.5 [place] [address]-12-06 09:53:13 Test Item Value Reference Range Interpretation Comments Platelet (test code = Platelet) 157 133-450 [place] [address]-12-06 09:53:13 Test Item Value Reference Range Interpretation Comments MPV (test code = MPV) 7.5 7.4-10.4 [place] [address]-12-06 09:53:13 Test Item Value Reference Range Interpretation Comments Neutrophils # (test code = Neutrophils 7.2 1.5-8.1 #) [facility]NzpwvzyYUONLUMKTW8969-32-14 09:53:13 Test Item Value Reference Range Interpretation Comments Lymphocytes # (test code = Lymphocytes 0.9 1.0-5.5 #) [facility] HospitalJsoksdkOBMPCINSFU0232-53-35 09:53:13 Test Item Value Reference Range Interpretation Comments Monocytes # (test code 0.5 See_Comment [Aut omated message] The = Monocytes #) system which generated this result tra nsmitted reference range : <=0.8. The reference r christiano was not used to int erpret this result as normal/abnormal . [facility] HospitalZrqosvdQFGCEWZKLV8965-64-23 09:53:13 Test Item Value Reference Range Interpretation Comments Basophils # (test code 0.1 See_Comment [Aut omated message] The = Basophils #) system which generated this result tra nsmitted reference range : <=0.2. The reference r christiano was not used to int erpret this result as normal/abnormal . [place] [address]-12-06 09:53:13 Test Item Value Reference Range Interpretation Comments Segs (test code = Segs) 83.0 45.0-75.0 [place] [address]-12-06 09:53:13 Test Item Value Reference Range Interpretation Comments Bands (test code = 0.0 See_Comment [Automat ed message] The Bands) system which ge nerated this result transmit sheba reference range : <=11.0. The reference r christiano was not used to interpr et this result as eyd l/abnormal. [place] [address]-12-06 09:53:13 Test Item Value Reference Range Interpretation Comments Lymphocytes (test code = Lymphocytes) 10.0 20.0-40.0 [address]12-06 09:53:13 Test Item Value Reference Range Interpretation Comments Monocytes (test code = Monocytes) 6.0 2.0-12.[address]12-06 09:53:13 Test Item Value Reference Range Interpretation Comments Basophils (test code = 1.0 See_Comment [Aut omated message] The Basophils) system which ge nerated this result tra nsmitted reference range : <=1.0. The reference r christiano was not used to int erpret this result as normal/abnormal . [place] [address]-12-06 09:53:13 Test Item Value Reference Range Interpretation Comments Atypical Lymphs (test code = Atypical 0.0 Lymphs) [place] [address]-12-06 09:53:13 Test Item Value Reference Range Interpretation Comments RBC Morph (test code = Normal (09/05/20 3:53 RBC Morph) AM) [address]12-06 09:53:13 Test Item Value Reference Range Interpretation Comments Plt Morph (test code = Normal (09/05/20 3:53 Plt Morph) AM) [place] 457350-12-06 09:53:13 Test Item Value Reference Range Interpretation Comments Magnesium Lvl (test code = Magnesium 2.2 1.8-2.4 Lvl) [address]12-06 09:53:13 Test Item Value Reference Range Interpretation Comments Phosphorus (test code = Phosphorus) 2.9 2.5-4.5 [place] [address]-12-06 09:53:13 Test Item Value Reference Range Interpretation Comments Glucose Lvl (test code = Glucose Lvl) 102 70-99 [place] [address]-12-06 09:53:13 Test Item Value Reference Range Interpretation Comments BUN (test code = BUN) 17 7-22 [place] [address]-12-06 09:53:13 Test Item Value Reference Range Interpretation Comments Creatinine Lvl (test code = Creatinine 1.51 0.50-1.40 Lvl) [address]12-06 09:53:13 Test Item Value Reference Range Interpretation Comments Sodium Lvl (test code = Sodium Lvl) 140 135-145 [address]12-06 09:53:13 Test Item Value Reference Range Interpretation Comments Potassium Lvl (test code = Potassium 3.5 3.5-5.1 Lvl) [place] 457350-12-06 09:53:13 Test Item Value Reference Range Interpretation Comments Chloride Lvl (test code = Chloride Lvl) 106 95-109 [address]12-06 09:53:13 Test Item Value Reference Range Interpretation Comments CO2 (test code = CO2) 29 24-32 [place] [address]-12-06 09:53:13 Test Item Value Reference Range Interpretation Comments Calcium Lvl (test code = Calcium Lvl) 8.3 8.5-10.5 [place] [address]-12-06 09:53:13 Test Item Value Reference Range Interpretation Comments AGAP (test code = AGAP) 8.5 10.0-20.0 [place] [address]-12-06 09:53:13 Test Item Value Reference Range Interpretation Comments eGFR (test code = eGFR) 33 [place] [address]-12-06 09:53:13 Test Item Value Reference Range Interpretation Comments WBC (test code = WBC) 8.7 3.7-10.4 [place] [address]-12-06 09:53:13 Test Item Value Reference Range Interpretation Comments RBC (test code = RBC) 3.96 4.20-5.40 [place] [address]-12-06 09:53:13 Test Item Value Reference Range Interpretation Comments Hgb (test code = Hgb) 10.7 12.0-16.0 [place] [address]-12-06 09:53:13 Test Item Value Reference Range Interpretation Comments Hct (test code = Hct) 32.8 36.0-48.0 [place] [address]-12-06 09:53:13 Test Item Value Reference Range Interpretation Comments MCV (test code = MCV) 83.0 80.0-98.0 [place] [address]-12-06 09:53:13 Test Item Value Reference Range Interpretation Comments MCH (test code = MCH) 26.9 pg 27.0-31.0 [place] [address]-12-06 09:53:13 Test Item Value Reference Range Interpretation Comments MCHC (test code = MCHC) 32.4 32.0-36.0 [place] [address]-12-06 09:53:13 Test Item Value Reference Range Interpretation Comments RDW (test code = RDW) 16.5 11.5-14.5 [place] [address]-12-06 09:53:13 Test Item Value Reference Range Interpretation Comments Platelet (test code = Platelet) 157 133-450 [place] [address]-12-06 09:53:13 Test Item Value Reference Range Interpretation Comments MPV (test code = MPV) 7.5 7.4-10.[address]12-06 09:53:13 Test Item Value Reference Range Interpretation Comments Neutrophils # (test code = Neutrophils 7.2 1.5-8.1 #) [place] [address]-12-06 09:53:13 Test Item Value Reference Range Interpretation Comments Lymphocytes # (test code = Lymphocytes 0.9 1.0-5.5 #) [place] [address]-12-06 09:53:13 Test Item Value Reference Range Interpretation Comments Monocytes # (test code 0.5 See_Comment [Aut omated message] The = Monocytes #) system which generated this result tra nsmitted reference range : <=0.8. The reference r christiano was not used to int erpret this result as normal/abnormal . [place] [address]-12-06 09:53:13 Test Item Value Reference Range Interpretation Comments Basophils # (test code 0.1 See_Comment [Aut omated message] The = Basophils #) system which generated this result tra nsmitted reference range : <=0.2. The reference r christiano was not used to int erpret this result as normal/abnormal . [address]12-06 09:53:13 Test Item Value Reference Range Interpretation Comments Segs (test code = Segs) 83.0 45.0-75.0 [address]12-06 09:53:13 Test Item Value Reference Range Interpretation Comments Bands (test code = 0.0 See_Comment [Automat ed message] The Bands) system which ge nerated this result transmit sheba reference range : <=11.0. The reference r christiano was not used to interpr et this result as edy l/abnormal. [facility]ZwzhefzCFSHEAPLBT2573-41-79 09:53:13 Test Item Value Reference Range Interpretation Comments Lymphocytes (test code = Lymphocytes) 10.0 20.0-40.0 [place] [address]-12-06 09:53:13 Test Item Value Reference Range Interpretation Comments Monocytes (test code = Monocytes) 6.0 2.0-12.0 [facility] HospitalTcjewdaPFBCKWMTPS2628-96-97 09:53:13 Test Item Value Reference Range Interpretation Comments Basophils (test code = 1.0 See_Comment [Aut omated message] The Basophils) system which ge nerated this result tra nsmitted reference range : <=1.0. The reference r christiano was not used to int erpret this result as normal/abnormal . [facility] HospitalYkfutdwHRMPLXLVAJ5913-52-79 09:53:13 Test Item Value Reference Range Interpretation Comments Atypical Lymphs (test code = Atypical 0.0 Lymphs) [place] 963420-12-06 09:53:13 Test Item Value Reference Range Interpretation Comments RBC Morph (test code = Normal (09/05/20 3:53 RBC Morph) AM) [place] [address]-12-06 09:53:13 Test Item Value Reference Range Interpretation Comments Plt Morph (test code = Normal (09/05/20 3:53 Plt Morph) AM) [place] 457350-12-06 09:53:13 Test Item Value Reference Range Interpretation Comments Magnesium Lvl (test code = Magnesium 2.2 1.8-2.4 Lvl) [place] 457350-12-06 09:53:13 Test Item Value Reference Range Interpretation Comments Phosphorus (test code = Phosphorus) 2.9 2.5-4.5 [place] [address]-12-06 09:53:13 Test Item Value Reference Range Interpretation Comments Glucose Lvl (test code = Glucose Lvl) 102 70-99 [place] [address]-12-06 09:53:13 Test Item Value Reference Range Interpretation Comments BUN (test code = BUN) 17 7-22 [place] 457350-12-06 09:53:13 Test Item Value Reference Range Interpretation Comments Creatinine Lvl (test code = Creatinine 1.51 0.50-1.40 Lvl) [place] [address]-12-06 09:53:13 Test Item Value Reference Range Interpretation Comments Sodium Lvl (test code = Sodium Lvl) 140 135-145 [place] [address]-12-06 09:53:13 Test Item Value Reference Range Interpretation Comments Potassium Lvl (test code = Potassium 3.5 3.5-5.1 Lvl) [address]12-06 09:53:13 Test Item Value Reference Range Interpretation Comments Chloride Lvl (test code = Chloride Lvl) 106 95-109 [place] [address]-12-06 09:53:13 Test Item Value Reference Range Interpretation Comments CO2 (test code = CO2) 29 24-32 [place] [address]-12-06 09:53:13 Test Item Value Reference Range Interpretation Comments Calcium Lvl (test code = Calcium Lvl) 8.3 8.5-10.5 [place] [address]-12-06 09:53:13 Test Item Value Reference Range Interpretation Comments AGAP (test code = AGAP) 8.5 10.0-20.0 [place] [address]-12-06 09:53:13 Test Item Value Reference Range Interpretation Comments eGFR (test code = eGFR) 33 [place] [address]-12-06 09:53:13 Test Item Value Reference Range Interpretation Comments WBC (test code = WBC) 8.7 3.7-10.4 [place] [address]-12-06 09:53:13 Test Item Value Reference Range Interpretation Comments RBC (test code = RBC) 3.96 4.20-5.[address]12-06 09:53:13 Test Item Value Reference Range Interpretation Comments Hgb (test code = Hgb) 10.7 12.0-16.[address]12-06 09:53:13 Test Item Value Reference Range Interpretation Comments Hct (test code = Hct) 32.8 36.0-48.0 [place] [address]-12-06 09:53:13 Test Item Value Reference Range Interpretation Comments MCV (test code = MCV) 83.0 80.0-98.0 [place] 963420-12-06 09:53:13 Test Item Value Reference Range Interpretation Comments MCH (test code = MCH) 26.9 pg 27.0-31.0 [facility]UfuvoxeWNRQCCJANL1131-31-87 09:53:13 Test Item Value Reference Range Interpretation Comments MCHC (test code = MCHC) 32.4 32.0-36.0 [place] [address]-12-06 09:53:13 Test Item Value Reference Range Interpretation Comments RDW (test code = RDW) 16.5 11.5-14.5 [place] 963420-12-06 09:53:13 Test Item Value Reference Range Interpretation Comments Platelet (test code = Platelet) 157 133-450 [place] 963420-12-06 09:53:13 Test Item Value Reference Range Interpretation Comments MPV (test code = MPV) 7.5 7.4-10.4 [place] 963420-12-06 09:53:13 Test Item Value Reference Range Interpretation Comments Neutrophils # (test code = Neutrophils 7.2 1.5-8.1 #) [facility] HospitalFztwgseROKMKTAXAS5037-22-19 09:53:13 Test Item Value Reference Range Interpretation Comments Lymphocytes # (test code = Lymphocytes 0.9 1.0-5.5 #) [facility] HospitalKbwhchcASZXVWWMFD9699-81-25 09:53:13 Test Item Value Reference Range Interpretation Comments Monocytes # (test code 0.5 See_Comment [Aut omated message] The = Monocytes #) system which generated this result tra nsmitted reference range : <=0.8. The reference r christiano was not used to int erpret this result as normal/abnormal . [place] [address]-12-06 09:53:13 Test Item Value Reference Range Interpretation Comments Basophils # (test code 0.1 See_Comment [Aut omated message] The = Basophils #) system which generated this result tra nsmitted reference range : <=0.2. The reference r christiano was not used to int erpret this result as normal/abnormal . [place] 963420-12-06 09:53:13 Test Item Value Reference Range Interpretation Comments Segs (test code = Segs) 83.0 45.0-75.0 [place] [address]-12-06 09:53:13 Test Item Value Reference Range Interpretation Comments Bands (test code = 0.0 See_Comment [Automat ed message] The Bands) system which ge nerated this result transmit sheba reference range : <=11.0. The reference r christiano was not used to interpr et this result as edy l/abnormal. [place] 963420-12-06 09:53:13 Test Item Value Reference Range Interpretation Comments Lymphocytes (test code = Lymphocytes) 10.0 20.0-40.0 [place] [address]-12-06 09:53:13 Test Item Value Reference Range Interpretation Comments Monocytes (test code = Monocytes) 6.0 2.0-12.0 [place] [address]-12-06 09:53:13 Test Item Value Reference Range Interpretation Comments Basophils (test code = 1.0 See_Comment [Aut omated message] The Basophils) system which ge nerated this result tra nsmitted reference range : <=1.0. The reference r christiano was not used to int erpret this result as normal/abnormal . [facility] HospitalVenpumuZRGZCHCVKO6325-52-46 09:53:13 Test Item Value Reference Range Interpretation Comments Atypical Lymphs (test code = Atypical 0.0 Lymphs) [place] [address]-12-06 09:53:13 Test Item Value Reference Range Interpretation Comments RBC Morph (test code = Normal (09/05/20 3:53 RBC Morph) AM) [place] [address]-12-06 09:53:13 Test Item Value Reference Range Interpretation Comments Plt Morph (test code = Normal (09/05/20 3:53 Plt Morph) AM) [facility]2020-12-06 09:53:13 Test Item Value Reference Range Interpretation Comments Magnesium Lvl (test code = Magnesium 2.2 1.8-2.4 Lvl) [facility]2020-12-06 09:53:13 Test Item Value Reference Range Interpretation Comments Phosphorus (test code = Phosphorus) 2.9 2.5-4.5 [place] 457350-12-06 09:53:13 Test Item Value Reference Range Interpretation Comments Glucose Lvl (test code = Glucose Lvl) 102 70-99 [place] [address]-12-06 09:53:13 Test Item Value Reference Range Interpretation Comments BUN (test code = BUN) 17 7-22 [place] [address]-12-06 09:53:13 Test Item Value Reference Range Interpretation Comments Creatinine Lvl (test code = Creatinine 1.51 0.50-1.40 Lvl) [place] [address]-12-06 09:53:13 Test Item Value Reference Range Interpretation Comments Sodium Lvl (test code = Sodium Lvl) 140 135-145 [place] [address]-12-06 09:53:13 Test Item Value Reference Range Interpretation Comments Potassium Lvl (test code = Potassium 3.5 3.5-5.1 Lvl) [address]12-06 09:53:13 Test Item Value Reference Range Interpretation Comments Chloride Lvl (test code = Chloride Lvl) 106 95-109 [place] [address]-12-06 09:53:13 Test Item Value Reference Range Interpretation Comments CO2 (test code = CO2) 29 24-32 [place] [address]-12-06 09:53:13 Test Item Value Reference Range Interpretation Comments Calcium Lvl (test code = Calcium Lvl) 8.3 8.5-10.5 [place] 457350-12-06 09:53:13 Test Item Value Reference Range Interpretation Comments AGAP (test code = AGAP) 8.5 10.0-20.0 [place] [address]-12-06 09:53:13 Test Item Value Reference Range Interpretation Comments eGFR (test code = eGFR) 33 [place] [address]-12-06 09:53:13 Test Item Value Reference Range Interpretation Comments WBC (test code = WBC) 8.7 3.7-10.[address]12-06 09:53:13 Test Item Value Reference Range Interpretation Comments RBC (test code = RBC) 3.96 4.20-5.40 [place] [address]-12-06 09:53:13 Test Item Value Reference Range Interpretation Comments Hgb (test code = Hgb) 10.7 12.0-16.[address]12-06 09:53:13 Test Item Value Reference Range Interpretation Comments Hct (test code = Hct) 32.8 36.0-48.0 [place] [address]-12-06 09:53:13 Test Item Value Reference Range Interpretation Comments MCV (test code = MCV) 83.0 80.0-98.0 [place] [address]-12-06 09:53:13 Test Item Value Reference Range Interpretation Comments MCH (test code = MCH) 26.9 pg 27.0-31.0 [place] [address]-12-06 09:53:13 Test Item Value Reference Range Interpretation Comments MCHC (test code = MCHC) 32.4 32.0-36.0 [place] [address]-12-06 09:53:13 Test Item Value Reference Range Interpretation Comments RDW (test code = RDW) 16.5 11.5-14.[address]12-06 09:53:13 Test Item Value Reference Range Interpretation Comments Platelet (test code = Platelet) 157 133-450 [place] [address]-12-06 09:53:13 Test Item Value Reference Range Interpretation Comments MPV (test code = MPV) 7.5 7.4-10.4 [place] [address]-12-06 09:53:13 Test Item Value Reference Range Interpretation Comments Neutrophils # (test code = Neutrophils 7.2 1.5-8.1 #) [place] 963420-12-06 09:53:13 Test Item Value Reference Range Interpretation Comments Lymphocytes # (test code = Lymphocytes 0.9 1.0-5.5 #) [place] [address]-12-06 09:53:13 Test Item Value Reference Range Interpretation Comments Monocytes # (test code = Monocytes #) 0.5 <=0.8 [place] [address]-12-06 09:53:13 Test Item Value Reference Range Interpretation Comments Basophils # (test code = Basophils #) 0.1 <=0.2 [place] [address]-12-06 09:53:13 Test Item Value Reference Range Interpretation Comments Segs (test code = Segs) 83.0 45.0-75.0 [place] [address]-12-06 09:53:13 Test Item Value Reference Range Interpretation Comments Bands (test code = Bands) 0.0 <=11.0 [place] [address]-12-06 09:53:13 Test Item Value Reference Range Interpretation Comments Lymphocytes (test code = Lymphocytes) 10.0 20.0-40.0 [place] [address]-12-06 09:53:13 Test Item Value Reference Range Interpretation Comments Monocytes (test code = Monocytes) 6.0 2.0-12.0 [place] [place] [address]-[place]-06 09:53:13 Test Item Value Reference Range Interpretation Comments Basophils (test code = Basophils) 1.0 <=1.0 [place] [address]-12-06 09:53:13 Test Item Value Reference Range Interpretation Comments Atypical Lymphs (test code = Atypical 0.0 Lymphs) [address]12-06 09:53:13 Test Item Value Reference Range Interpretation Comments RBC Morph (test code = Normal (09/05/20 3:53 RBC Morph) AM) [place] 963420-12-06 09:53:13 Test Item Value Reference Range Interpretation Comments Plt Morph (test code = Normal (09/05/20 3:53 Plt Morph) AM) [place] 457350-12-06 09:53:13 Test Item Value Reference Range Interpretation Comments Magnesium Lvl (test code = Magnesium 2.2 1.8-2.4 Lvl) [place] 457350-12-06 09:53:13 Test Item Value Reference Range Interpretation Comments Phosphorus (test code = Phosphorus) 2.9 2.5-4.5 [place] 457350-12-06 09:53:13 Test Item Value Reference Range Interpretation Comments Glucose Lvl (test code = Glucose Lvl) 102 70-99 [place] 457350-12-06 09:53:13 Test Item Value Reference Range Interpretation Comments BUN (test code = BUN) 17 7-22 [place] 457350-12-06 09:53:13 Test Item Value Reference Range Interpretation Comments Creatinine Lvl (test code = Creatinine 1.51 0.50-1.40 Lvl) [place] 457350-12-06 09:53:13 Test Item Value Reference Range Interpretation Comments Sodium Lvl (test code = Sodium Lvl) 140 135-145 [place] 457350-12-06 09:53:13 Test Item Value Reference Range Interpretation Comments Potassium Lvl (test code = Potassium 3.5 3.5-5.1 Lvl) [place] 457350-12-06 09:53:13 Test Item Value Reference Range Interpretation Comments Chloride Lvl (test code = Chloride Lvl) 106 95-109 [place] [address]-12-06 09:53:13 Test Item Value Reference Range Interpretation Comments CO2 (test code = CO2) 29 24-32 [place] [address]-12-06 09:53:13 Test Item Value Reference Range Interpretation Comments Calcium Lvl (test code = Calcium Lvl) 8.3 8.5-10.5 [place] 457350-12-06 09:53:13 Test Item Value Reference Range Interpretation Comments AGAP (test code = AGAP) 8.5 10.0-20.0 [place] 457350-12-06 09:53:13 Test Item Value Reference Range Interpretation Comments eGFR (test code = eGFR) 33 [place] 963420-12-06 09:53:13 Test Item Value Reference Range Interpretation Comments WBC (test code = WBC) 8.7 3.7-10.4 [place] 963420-12-06 09:53:13 Test Item Value Reference Range Interpretation Comments RBC (test code = RBC) 3.96 4.20-5.40 [place] 963420-12-06 09:53:13 Test Item Value Reference Range Interpretation Comments Hgb (test code = Hgb) 10.7 12.0-16.0 [place] [address]-12-06 09:53:13 Test Item Value Reference Range Interpretation Comments Hct (test code = Hct) 32.8 36.0-48.0 [address]12-06 09:53:13 Test Item Value Reference Range Interpretation Comments MCV (test code = MCV) 83.0 80.0-98.0 [place] [address]-12-06 09:53:13 Test Item Value Reference Range Interpretation Comments MCH (test code = MCH) 26.9 pg 27.0-31.0 [place] [address]-12-06 09:53:13 Test Item Value Reference Range Interpretation Comments MCHC (test code = MCHC) 32.4 32.0-36.0 [place] [address]-12-06 09:53:13 Test Item Value Reference Range Interpretation Comments RDW (test code = RDW) 16.5 11.5-14.5 [place] [address]-12-06 09:53:13 Test Item Value Reference Range Interpretation Comments Platelet (test code = Platelet) 157 133-450 [place] [address]-12-06 09:53:13 Test Item Value Reference Range Interpretation Comments MPV (test code = MPV) 7.5 7.4-10.4 [place] [address]-12-06 09:53:13 Test Item Value Reference Range Interpretation Comments Neutrophils # (test code = Neutrophils 7.2 1.5-8.1 #) [place] [address]-12-06 09:53:13 Test Item Value Reference Range Interpretation Comments Lymphocytes # (test code = Lymphocytes 0.9 1.0-5.5 #) [place] [address]-12-06 09:53:13 Test Item Value Reference Range Interpretation Comments Monocytes # (test code 0.5 See_Comment [Aut omated message] The = Monocytes #) system which generated this result tra nsmitted reference range : <=0.8. The reference r christiano was not used to int erpret this result as normal/abnormal . [place] [address]-12-06 09:53:13 Test Item Value Reference Range Interpretation Comments Basophils # (test code 0.1 See_Comment [Aut omated message] The = Basophils #) system which generated this result tra nsmitted reference range : <=0.2. The reference r christiano was not used to int erpret this result as normal/abnormal . [place] 963420-12-06 09:53:13 Test Item Value Reference Range Interpretation Comments Segs (test code = Segs) 83.0 45.0-75.0 [place] [address]-12-06 09:53:13 Test Item Value Reference Range Interpretation Comments Bands (test code = 0.0 See_Comment [Automat ed message] The Bands) system which ge nerated this result transmit sheba reference range : <=11.0. The reference r christiano was not used to interpr et this result as edy l/abnormal. [place] [address]-12-06 09:53:13 Test Item Value Reference Range Interpretation Comments Lymphocytes (test code = Lymphocytes) 10.0 20.0-40.0 [place] [address]-12-06 09:53:13 Test Item Value Reference Range Interpretation Comments Monocytes (test code = Monocytes) 6.0 2.0-12.0 [place] [address]-12-06 09:53:13 Test Item Value Reference Range Interpretation Comments Basophils (test code = 1.0 See_Comment [Aut omated message] The Basophils) system which ge nerated this result tra nsmitted reference range : <=1.0. The reference r christiano was not used to int erpret this result as normal/abnormal . [place] [address]-12-06 09:53:13 Test Item Value Reference Range Interpretation Comments Atypical Lymphs (test code = Atypical 0.0 Lymphs) [address]12-06 09:53:13 Test Item Value Reference Range Interpretation Comments RBC Morph (test code = Normal (09/05/20 3:53 RBC Morph) AM) [place] [address]-12-06 09:53:13 Test Item Value Reference Range Interpretation Comments Plt Morph (test code = Normal (09/05/20 3:53 Plt Morph) AM) [place] 457350-12-06 09:53:13 Test Item Value Reference Range Interpretation Comments Magnesium Lvl (test code = Magnesium 2.2 1.8-2.4 Lvl) [place] [address]-12-06 09:53:13 Test Item Value Reference Range Interpretation Comments Phosphorus (test code = Phosphorus) 2.9 2.5-4.5 [place] [address]-12-06 09:53:13 Test Item Value Reference Range Interpretation Comments Glucose Lvl (test code = Glucose Lvl) 102 70-99 [place] [address]-12-06 09:53:13 Test Item Value Reference Range Interpretation Comments BUN (test code = BUN) 17 7-22 [place] [address]-12-06 09:53:13 Test Item Value Reference Range Interpretation Comments Creatinine Lvl (test code = Creatinine 1.51 0.50-1.40 Lvl) [place] 457350-12-06 09:53:13 Test Item Value Reference Range Interpretation Comments Sodium Lvl (test code = Sodium Lvl) 140 135-145 [place] 457350-12-06 09:53:13 Test Item Value Reference Range Interpretation Comments Potassium Lvl (test code = Potassium 3.5 3.5-5.1 Lvl) [place] 457350-12-06 09:53:13 Test Item Value Reference Range Interpretation Comments Chloride Lvl (test code = Chloride Lvl) 106 95-109 [place] [address]-12-06 09:53:13 Test Item Value Reference Range Interpretation Comments CO2 (test code = CO2) 29 24-32 [address]12-06 09:53:13 Test Item Value Reference Range Interpretation Comments Calcium Lvl (test code = Calcium Lvl) 8.3 8.5-10.5 [place] [address]-12-06 09:53:13 Test Item Value Reference Range Interpretation Comments AGAP (test code = AGAP) 8.5 10.0-20.0 [place] 457350-12-06 09:53:13 Test Item Value Reference Range Interpretation Comments eGFR (test code = eGFR) 33 [place] [address]-12-06 09:53:13 Test Item Value Reference Range Interpretation Comments WBC (test code = WBC) 8.7 3.7-10.4 [place] [address]-12-06 09:53:13 Test Item Value Reference Range Interpretation Comments RBC (test code = RBC) 3.96 4.20-5.40 [place] [address]-12-06 09:53:13 Test Item Value Reference Range Interpretation Comments Hgb (test code = Hgb) 10.7 12.0-16.0 [address]12-06 09:53:13 Test Item Value Reference Range Interpretation Comments Hct (test code = Hct) 32.8 36.0-48.0 [place] [address]-12-06 09:53:13 Test Item Value Reference Range Interpretation Comments MCV (test code = MCV) 83.0 80.0-98.0 [place] [address]-12-06 09:53:13 Test Item Value Reference Range Interpretation Comments MCH (test code = MCH) 26.9 pg 27.0-31.0 [place] [address]-12-06 09:53:13 Test Item Value Reference Range Interpretation Comments MCHC (test code = MCHC) 32.4 32.0-36.0 [place] [address]-12-06 09:53:13 Test Item Value Reference Range Interpretation Comments RDW (test code = RDW) 16.5 11.5-14.5 [place] [address]-12-06 09:53:13 Test Item Value Reference Range Interpretation Comments Platelet (test code = Platelet) 157 133-450 [place] [address]-12-06 09:53:13 Test Item Value Reference Range Interpretation Comments MPV (test code = MPV) 7.5 7.4-10.4 [place] [address]-12-06 09:53:13 Test Item Value Reference Range Interpretation Comments Neutrophils # (test code = Neutrophils 7.2 1.5-8.1 #) [place] 963420-12-06 09:53:13 Test Item Value Reference Range Interpretation Comments Lymphocytes # (test code = Lymphocytes 0.9 1.0-5.5 #) [place] 963420-12-06 09:53:13 Test Item Value Reference Range Interpretation Comments Monocytes # (test code = Monocytes #) 0.5 <=0.8 [place] [address]-12-06 09:53:13 Test Item Value Reference Range Interpretation Comments Basophils # (test code = Basophils #) 0.1 <=0.2 [place] [address]-12-06 09:53:13 Test Item Value Reference Range Interpretation Comments Segs (test code = Segs) 83.0 45.0-75.0 [place] [address]-12-06 09:53:13 Test Item Value Reference Range Interpretation Comments Bands (test code = Bands) 0.0 <=11.0 [place] [address]-12-06 09:53:13 Test Item Value Reference Range Interpretation Comments Lymphocytes (test code = Lymphocytes) 10.0 20.0-40.0 [place] [address]-12-06 09:53:13 Test Item Value Reference Range Interpretation Comments Monocytes (test code = Monocytes) 6.0 2.0-12.0 [place] [address]-12-06 09:53:13 Test Item Value Reference Range Interpretation Comments Basophils (test code = Basophils) 1.0 <=1.0 [place] [address]-12-06 09:53:13 Test Item Value Reference Range Interpretation Comments Atypical Lymphs (test code = Atypical 0.0 Lymphs) [place] [address]-12-06 09:53:13 Test Item Value Reference Range Interpretation Comments RBC Morph (test code = Normal (09/05/20 3:53 RBC Morph) AM) [place] [address]-12-06 09:53:13 Test Item Value Reference Range Interpretation Comments Plt Morph (test code = Normal (09/05/20 3:53 Plt Morph) AM) [place] [address]-12-06 09:53:00 Test Item Value Reference Range Interpretation Comments Coronavirus (COVID-19) Not Detected (09/05/20 JONATHAN (test code = 3:53 AM) Coronavirus (COVID-19) JONATHAN) [place] [address]-12-06 09:53:00 Test Item Value Reference Range Interpretation Comments Coronavirus (COVID-19) Not Detected (09/05/20 JONATHAN (test code = 3:53 AM) Coronavirus (COVID-19) JONATHAN) [place] [address]-12-06 09:53:00 Test Item Value Reference Range Interpretation Comments Coronavirus (COVID-19) Not Detected (09/05/20 JONATHAN (test code = 3:53 AM) Coronavirus (COVID-19) JONATHAN) [place] [address]-12-06 09:53:00 Test Item Value Reference Range Interpretation Comments Coronavirus (COVID-19) Not Detected (09/05/20 JONATHAN (test code = 3:53 AM) Coronavirus (COVID-19) JONATHAN) [place] [address]-12-06 09:53:00 Test Item Value Reference Range Interpretation Comments Coronavirus (COVID-19) Not Detected (09/05/20 JONATHAN (test code = 3:53 AM) Coronavirus (COVID-19) JONATHAN) [place] [address]-12-06 09:53:00 Test Item Value Reference Range Interpretation Comments Coronavirus (COVID-19) Not Detected (09/05/20 JONATHAN (test code = 3:53 AM) Coronavirus (COVID-19) JONATHAN) [place] [address]-12-06 09:53:00 Test Item Value Reference Range Interpretation Comments Coronavirus (COVID-19) Not Detected (09/05/20 JONATHAN (test code = 3:53 AM) Coronavirus (COVID-19) JONATHAN) [place] [address]-12-06 09:53:00 Test Item Value Reference Range Interpretation Comments Coronavirus (COVID-19) Not Detected (09/05/20 JONATHAN (test code = 3:53 AM) Coronavirus (COVID-19) JONATHAN) [address]12-06 09:53:00 Test Item Value Reference Range Interpretation Comments Coronavirus (COVID-19) Not Detected (09/05/20 JONATHAN (test code = 3:53 AM) Coronavirus (COVID-19) JONATHAN) [address]12-06 09:53:00 Test Item Value Reference Range Interpretation Comments Coronavirus (COVID-19) Not Detected (09/05/20 JONATHAN (test code = 3:53 AM) Coronavirus (COVID-19) JONATHAN) [address]12-06 09:53:00 Test Item Value Reference Range Interpretation Comments Coronavirus (COVID-19) Not Detected (09/05/20 JONATHAN (test code = 3:53 AM) Coronavirus (COVID-19) JONATHAN) [address]12-06 09:53:00 Test Item Value Reference Range Interpretation Comments Coronavirus (COVID-19) Not Detected (09/05/20 JONATHAN (test code = 3:53 AM) Coronavirus (COVID-19) JONATHAN) [address]12-06 09:53:00 Test Item Value Reference Range Interpretation Comments Coronavirus (COVID-19) Not Detected (09/05/20 JONATHAN (test code = 3:53 AM) Coronavirus (COVID-19) JONATHAN) [address]12-06 09:53:00 Test Item Value Reference Range Interpretation Comments Coronavirus (COVID-19) Not Detected (09/05/20 JONATHAN (test code = 3:53 AM) Coronavirus (COVID-19) JONATHAN) [address]12-06 09:53:00 Test Item Value Reference Range Interpretation Comments Coronavirus (COVID-19) Not Detected (09/05/20 JONATHAN (test code = 3:53 AM) Coronavirus (COVID-19) JONATHAN) [facility]fqq[facility]xaBESJQVUYCO5639-41-74 09:53:00 Test Item Value Reference Range Interpretation Comments Coronavirus (COVID-19) Not Detected (09/05/20 JONATHAN (test code = 3:53 AM) Coronavirus (COVID-19) JONATHAN) [facility] CenterUsrqjgpFWIKDDEUJY6568-19-83 09:53:00 Test Item Value Reference Range Interpretation Comments Coronavirus (COVID-19) Not Detected (09/05/20 JONATHAN (test code = 3:53 AM) Coronavirus (COVID-19) JONATHAN) [facility] CenterDntxtetPAPOWTMSGW9089-66-28 09:53:00 Test Item Value Reference Range Interpretation Comments Coronavirus (COVID-19) Not Detected (09/05/20 JONATHAN (test code = 3:53 AM) Coronavirus (COVID-19) JONATHAN) [facility] CenterCARD[facility]AC [id number] 04:34:00 Test Item Value Reference Range Interpretation Comments Troponin-I (test code no gt See_Comment [Auto mated message] The = Troponin-I) system which g enerated this result transmit sheba reference range : <=0.40. The reference r christiano was not used to interpr et this result as edy l/abnormal. [facility] [employer] [id number] 04:34:00 Test Item Value Reference Range Interpretation Comments Glucose Lvl (test code = Glucose Lvl) 125 70-99 [facility] [id number] 04:34:00 Test Item Value Reference Range Interpretation Comments BUN (test code = BUN) 17 7-22 [facility] [id number] 04:34:00 Test Item Value Reference Range Interpretation Comments Creatinine Lvl (test code = Creatinine 1.51 0.50-1.40 Lvl) [facility] [id number] 04:34:00 Test Item Value Reference Range Interpretation Comments Sodium Lvl (test code = Sodium Lvl) 142 135-145 [facility] [id number] 04:34:00 Test Item Value Reference Range Interpretation Comments Potassium Lvl (test code = Potassium 4.0 3.5-5.1 Lvl) [facility] [id number] 04:34:00 Test Item Value Reference Range Interpretation Comments Chloride Lvl (test code = Chloride Lvl) 108 95-109 [place] 457350-12-06 04:34:00 Test Item Value Reference Range Interpretation Comments CO2 (test code = CO2) 30 24-32 [place] 457350-12-06 04:34:00 Test Item Value Reference Range Interpretation Comments Calcium Lvl (test code = Calcium Lvl) 7.8 8.5-10.5 [place] 457350-12-06 04:34:00 Test Item Value Reference Range Interpretation Comments AGAP (test code = AGAP) 8.0 10.0-20.0 [facility]2020-12-06 04:34:00 Test Item Value Reference Range Interpretation Comments eGFR (test code = eGFR) 33 [facility]ChyqyapBNHVFCPNFV0376-57-31 04:34:00 Test Item Value Reference Range Interpretation Comments WBC X 10x3 (test code = WBC X 10x3) 9.7 3.7-10.4 [place] 963420-12-06 04:34:00 Test Item Value Reference Range Interpretation Comments RBC X 10x6 (test code = RBC X 10x6) 3.96 4.20-5.40 [place] 963420-12-06 04:34:00 Test Item Value Reference Range Interpretation Comments Hgb (test code = Hgb) 10.6 12.0-16.0 [place] [address]-12-06 04:34:00 Test Item Value Reference Range Interpretation Comments Hct (test code = Hct) 32.6 36.0-48.0 [place] 963420-12-06 04:34:00 Test Item Value Reference Range Interpretation Comments MCV (test code = MCV) 82.3 80.0-98.0 [place] [address]-12-06 04:34:00 Test Item Value Reference Range Interpretation Comments MCH (test code = MCH) 26.6 pg 27.0-31.0 [place] 963420-12-06 04:34:00 Test Item Value Reference Range Interpretation Comments MCHC (test code = MCHC) 32.4 32.0-36.0 [place] 963420-12-06 04:34:00 Test Item Value Reference Range Interpretation Comments RDW (test code = RDW) 16.8 11.5-14.5 [facility] HospitalRmkjzrfAJHWWNQCHO6443-43-77 04:34:00 Test Item Value Reference Range Interpretation Comments Platelet (test code = Platelet) 178 133-450 [facility] HospitalMpknompOCPEMSOROH0448-75-49 04:34:00 Test Item Value Reference Range Interpretation Comments MPV (test code = MPV) 8.0 7.4-10.4 [facility] HospitalSiddqkmFNZUKIOPLH0229-85-87 04:34:00 Test Item Value Reference Range Interpretation Comments PT (test code = PT) 14.7 s 12.0-14.7 [place] 963420-12-06 04:34:00 Test Item Value Reference Range Interpretation Comments INR (test code = INR) 1.14 1 0.85-1.17 [place] 963420-12-06 04:34:00 Test Item Value Reference Range Interpretation Comments PTT (test code = PTT) 31.2 s 22.9-35.8 [facility] HospitalRfsixdxBFXXBQNWDK0407-46-43 04:34:00 Test Item Value Reference Range Interpretation Comments Segs (test code = Segs) 73.9 45.0-75.0 [facility] HospitalHirootlSRMTLIFVIC0270-04-87 04:34:00 Test Item Value Reference Range Interpretation Comments Lymphocytes (test code = Lymphocytes) 11.0 20.0-40.0 [facility] HospitalQbfvpyhEHDBGHOFNS0580-33-55 04:34:00 Test Item Value Reference Range Interpretation Comments Monocytes (test code = Monocytes) 13.6 2.0-12.0 [facility] HospitalDrzfekmGFOBFGNGRI2105-45-83 04:34:00 Test Item Value Reference Range Interpretation Comments Eosinophils (test code = 0.7 See_Comment [A utomated message] The Eosinophils) system which ge nerated this result tra nsmitted reference range : <=4.0. The reference r christiano was not used to int erpret this result as normal/abnormal . [place] [address]-12-06 04:34:00 Test Item Value Reference Range Interpretation Comments Basophils (test code = 0.8 See_Comment [Aut omated message] The Basophils) system which ge nerated this result tra nsmitted reference range : <=1.0. The reference r christiano was not used to int erpret this result as normal/abnormal . [place] [address]-12-06 04:34:00 Test Item Value Reference Range Interpretation Comments Neutrophils # (test code = Neutrophils 7.2 1.5-8.1 #) [facility] HospitalTedaksyWBJJZUJGZX9005-67-98 04:34:00 Test Item Value Reference Range Interpretation Comments Lymphocytes # (test code = Lymphocytes 1.1 1.0-5.5 #) [facility] HospitalYxlmgskLLFTPWSZCI9811-23-16 04:34:00 Test Item Value Reference Range Interpretation Comments Monocytes # (test code 1.3 See_Comment [Aut omated message] The = Monocytes #) system which generated this result tra nsmitted reference range : <=0.8. The reference r christiano was not used to int erpret this result as normal/abnormal . [facility] HospitalPsesaszMNLZNDWQAN7881-18-26 04:34:00 Test Item Value Reference Range Interpretation Comments Eosinophils # (test code 0.1 See_Comment [A utomated message] The = Eosinophils #) system whic h generated this result tra nsmitted reference range : <=0.5. The reference r christiano was not used to int erpret this result as normal/abnormal . [facility] HospitalMhiuabgGBXQWBTPAJ5078-33-18 04:34:00 Test Item Value Reference Range Interpretation Comments Basophils # (test code 0.1 See_Comment [Aut omated message] The = Basophils #) system which generated this result tra nsmitted reference range : <=0.2. The reference r christiano was not used to int erpret this result as normal/abnormal . [facility] CenterCARD[facility]AC LEOPIKK0975-21-10 04:34:00 Test Item Value Reference Range Interpretation Comments Troponin-I (test code no gt See_Comment [Auto mated message] The = Troponin-I) system which g enerated this result transmit sheba reference range : <=0.40. The reference r christiano was not used to interpr et this result as edy l/abnormal. [facility] [id number] 04:34:00 Test Item Value Reference Range Interpretation Comments Glucose Lvl (test code = Glucose Lvl) 125 70-99 [facility] [id number] 04:34:00 Test Item Value Reference Range Interpretation Comments BUN (test code = BUN) 17 7-22 [facility] [id number] 04:34:00 Test Item Value Reference Range Interpretation Comments Creatinine Lvl (test code = Creatinine 1.51 0.50-1.40 Lvl) [place] 457350-12-06 04:34:00 Test Item Value Reference Range Interpretation Comments Sodium Lvl (test code = Sodium Lvl) 142 135-145 [place] 457350-12-06 04:34:00 Test Item Value Reference Range Interpretation Comments Potassium Lvl (test code = Potassium 4.0 3.5-5.1 Lvl) [place] 457350-12-06 04:34:00 Test Item Value Reference Range Interpretation Comments Chloride Lvl (test code = Chloride Lvl) 108 95-109 [place] 457350-12-06 04:34:00 Test Item Value Reference Range Interpretation Comments CO2 (test code = CO2) 30 24-32 [place] 457350-12-06 04:34:00 Test Item Value Reference Range Interpretation Comments Calcium Lvl (test code = Calcium Lvl) 7.8 8.5-10.5 [place] 457350-12-06 04:34:00 Test Item Value Reference Range Interpretation Comments AGAP (test code = AGAP) 8.0 10.0-20.0 [place] 457350-12-06 04:34:00 Test Item Value Reference Range Interpretation Comments eGFR (test code = eGFR) 33 [place] 963420-12-06 04:34:00 Test Item Value Reference Range Interpretation Comments WBC X 10x3 (test code = WBC X 10x3) 9.7 3.7-10.4 [place] [address]-12-06 04:34:00 Test Item Value Reference Range Interpretation Comments RBC X 10x6 (test code = RBC X 10x6) 3.96 4.20-5.40 [place] [address]-12-06 04:34:00 Test Item Value Reference Range Interpretation Comments Hgb (test code = Hgb) 10.6 12.0-16.0 [place] [address]-12-06 04:34:00 Test Item Value Reference Range Interpretation Comments Hct (test code = Hct) 32.6 36.0-48.0 [place] 963420-12-06 04:34:00 Test Item Value Reference Range Interpretation Comments MCV (test code = MCV) 82.3 80.0-98.0 [place] 963420-12-06 04:34:00 Test Item Value Reference Range Interpretation Comments MCH (test code = MCH) 26.6 pg 27.0-31.0 [facility] HospitalAcuhvtjWHVBYEIMZX0094-71-74 04:34:00 Test Item Value Reference Range Interpretation Comments MCHC (test code = MCHC) 32.4 32.0-36.0 [facility] HospitalAtqgjnuNSDJUWJDKM8946-98-27 04:34:00 Test Item Value Reference Range Interpretation Comments RDW (test code = RDW) 16.8 11.5-14.5 [place] 963420-12-06 04:34:00 Test Item Value Reference Range Interpretation Comments Platelet (test code = Platelet) 178 133-450 [facility] HospitalPnugdeuPWAXMHQLQH6254-86-30 04:34:00 Test Item Value Reference Range Interpretation Comments MPV (test code = MPV) 8.0 7.4-10.4 [place] 963420-12-06 04:34:00 Test Item Value Reference Range Interpretation Comments PT (test code = PT) 14.7 s 12.0-14.7 [place] 963420-12-06 04:34:00 Test Item Value Reference Range Interpretation Comments INR (test code = INR) 1.14 1 0.85-1.17 [place] 963420-12-06 04:34:00 Test Item Value Reference Range Interpretation Comments PTT (test code = PTT) 31.2 s 22.9-35.8 [place] 963420-12-06 04:34:00 Test Item Value Reference Range Interpretation Comments Segs (test code = Segs) 73.9 45.0-75.0 [place] 963420-12-06 04:34:00 Test Item Value Reference Range Interpretation Comments Lymphocytes (test code = Lymphocytes) 11.0 20.0-40.0 [place] [address]-12-06 04:34:00 Test Item Value Reference Range Interpretation Comments Monocytes (test code = Monocytes) 13.6 2.0-12.0 [place] [address]-12-06 04:34:00 Test Item Value Reference Range Interpretation Comments Eosinophils (test code = 0.7 See_Comment [A utomated message] The Eosinophils) system which ge nerated this result tra nsmitted reference range : <=4.0. The reference r christiano was not used to int erpret this result as normal/abnormal . [facility]gqbnmlBRPCPIZJKJ9318-52-72 04:34:00 Test Item Value Reference Range Interpretation Comments Basophils (test code = 0.8 See_Comment [Aut omated message] The Basophils) system which ge nerated this result tra nsmitted reference range : <=1.0. The reference r christiano was not used to int erpret this result as normal/abnormal . [facility] HospitalYbwgerdVTCPLBSBVE7916-44-02 04:34:00 Test Item Value Reference Range Interpretation Comments Neutrophils # (test code = Neutrophils 7.2 1.5-8.1 #) [facility] HospitalZfuartfLJPISWSGXU3674-59-98 04:34:00 Test Item Value Reference Range Interpretation Comments Lymphocytes # (test code = Lymphocytes 1.1 1.0-5.5 #) [facility] HospitalZpwonkdQUYDKVVTHB6770-55-82 04:34:00 Test Item Value Reference Range Interpretation Comments Monocytes # (test code 1.3 See_Comment [Aut omated message] The = Monocytes #) system which generated this result tra nsmitted reference range : <=0.8. The reference r christiano was not used to int erpret this result as normal/abnormal . [facility] HospitalWacufiqOUTYHMMEFA1802-97-69 04:34:00 Test Item Value Reference Range Interpretation Comments Eosinophils # (test code 0.1 See_Comment [A utomated message] The = Eosinophils #) system whic h generated this result tra nsmitted reference range : <=0.5. The reference r christiano was not used to int erpret this result as normal/abnormal . [facility] HospitalJnibdusUGHGDRMMYA3613-83-18 04:34:00 Test Item Value Reference Range Interpretation Comments Basophils # (test code 0.1 See_Comment [Aut omated message] The = Basophils #) system which generated this result tra nsmitted reference range : <=0.2. The reference r christiano was not used to int erpret this result as normal/abnormal . [facility] OOUVNOZ9684-50-10 04:34:00 Test Item Value Reference Range Interpretation Comments Troponin-I (test code no gt See_Comment [Auto mated message] The = Troponin-I) system which g enerated this result transmit sheba reference range : <=0.40. The reference r christiano was not used to interpr et this result as edy l/abnormal. [place] 457350-12-06 04:34:00 Test Item Value Reference Range Interpretation Comments Glucose Lvl (test code = Glucose Lvl) 125 70-99 [place] 457350-12-06 04:34:00 Test Item Value Reference Range Interpretation Comments BUN (test code = BUN) 17 7-22 [place] 457350-12-06 04:34:00 Test Item Value Reference Range Interpretation Comments Creatinine Lvl (test code = Creatinine 1.51 0.50-1.40 Lvl) [place] 457350-12-06 04:34:00 Test Item Value Reference Range Interpretation Comments Sodium Lvl (test code = Sodium Lvl) 142 135-145 [place] 457350-12-06 04:34:00 Test Item Value Reference Range Interpretation Comments Potassium Lvl (test code = Potassium 4.0 3.5-5.1 Lvl) [place] 457350-12-06 04:34:00 Test Item Value Reference Range Interpretation Comments Chloride Lvl (test code = Chloride Lvl) 108 95-109 [place] 457350-12-06 04:34:00 Test Item Value Reference Range Interpretation Comments CO2 (test code = CO2) 30 24-32 [place] 457350-12-06 04:34:00 Test Item Value Reference Range Interpretation Comments Calcium Lvl (test code = Calcium Lvl) 7.8 8.5-10.5 [place] 457350-12-06 04:34:00 Test Item Value Reference Range Interpretation Comments AGAP (test code = AGAP) 8.0 10.0-20.0 [place] 457350-12-06 04:34:00 Test Item Value Reference Range Interpretation Comments eGFR (test code = eGFR) 33 [place] 963420-12-06 04:34:00 Test Item Value Reference Range Interpretation Comments WBC X 10x3 (test code = WBC X 10x3) 9.7 3.7-10.4 [place] 963420-12-06 04:34:00 Test Item Value Reference Range Interpretation Comments RBC X 10x6 (test code = RBC X 10x6) 3.96 4.20-5.40 [place] [address]-12-06 04:34:00 Test Item Value Reference Range Interpretation Comments Hgb (test code = Hgb) 10.6 12.0-16.0 [place] [address]-12-06 04:34:00 Test Item Value Reference Range Interpretation Comments Hct (test code = Hct) 32.6 36.0-48.0 [place] 963420-12-06 04:34:00 Test Item Value Reference Range Interpretation Comments MCV (test code = MCV) 82.3 80.0-98.0 [place] [address]-12-06 04:34:00 Test Item Value Reference Range Interpretation Comments MCH (test code = MCH) 26.6 pg 27.0-31.0 [place] 963420-12-06 04:34:00 Test Item Value Reference Range Interpretation Comments MCHC (test code = MCHC) 32.4 32.0-36.0 [place] 963420-12-06 04:34:00 Test Item Value Reference Range Interpretation Comments RDW (test code = RDW) 16.8 11.5-14.5 [place] [address]-12-06 04:34:00 Test Item Value Reference Range Interpretation Comments Platelet (test code = Platelet) 178 133-450 [facility] HospitalWhxssjzSMVZYRCFSK1076-68-15 04:34:00 Test Item Value Reference Range Interpretation Comments MPV (test code = MPV) 8.0 7.4-10.4 [place] [address]-12-06 04:34:00 Test Item Value Reference Range Interpretation Comments PT (test code = PT) 14.7 s 12.0-14.7 [place] [address]-12-06 04:34:00 Test Item Value Reference Range Interpretation Comments INR (test code = INR) 1.14 1 0.85-1.17 [place] [address]-12-06 04:34:00 Test Item Value Reference Range Interpretation Comments PTT (test code = PTT) 31.2 s 22.9-35.8 [place] [address]-12-06 04:34:00 Test Item Value Reference Range Interpretation Comments Segs (test code = Segs) 73.9 45.0-75.0 [facility] HospitalWqsrfiyZLFIPVKRZB6357-95-12 04:34:00 Test Item Value Reference Range Interpretation Comments Lymphocytes (test code = Lymphocytes) 11.0 20.0-40.0 [facility] HospitalEatqclgRRWPNWJENJ5638-03-73 04:34:00 Test Item Value Reference Range Interpretation Comments Monocytes (test code = Monocytes) 13.6 2.0-12.0 [facility] HospitalNzdvugtDVBUVMDHWU2497-08-15 04:34:00 Test Item Value Reference Range Interpretation Comments Eosinophils (test code = 0.7 See_Comment [A utomated message] The Eosinophils) system which ge nerated this result tra nsmitted reference range : <=4.0. The reference r christiano was not used to int erpret this result as normal/abnormal . [facility] HospitalEhlubukSBZVDCWMSO4819-33-85 04:34:00 Test Item Value Reference Range Interpretation Comments Basophils (test code = 0.8 See_Comment [Aut omated message] The Basophils) system which ge nerated this result tra nsmitted reference range : <=1.0. The reference r christiano was not used to int erpret this result as normal/abnormal . [facility] HospitalIahhzhoLYIJXELBEW6396-04-93 04:34:00 Test Item Value Reference Range Interpretation Comments Neutrophils # (test code = Neutrophils 7.2 1.5-8.1 #) [facility] HospitalUmlsxxmYBNMOIRAAQ4725-78-14 04:34:00 Test Item Value Reference Range Interpretation Comments Lymphocytes # (test code = Lymphocytes 1.1 1.0-5.5 #) [facility] HospitalYqpnpmoFFFBUCDGSZ6317-63-46 04:34:00 Test Item Value Reference Range Interpretation Comments Monocytes # (test code 1.3 See_Comment [Aut omated message] The = Monocytes #) system which generated this result tra nsmitted reference range : <=0.8. The reference r christiano was not used to int erpret this result as normal/abnormal . [facility] HospitalVbvukvkPWUHNTMZAW1578-93-33 04:34:00 Test Item Value Reference Range Interpretation Comments Eosinophils # (test code 0.1 See_Comment [A utomated message] The = Eosinophils #) system whic h generated this result tra nsmitted reference range : <=0.5. The reference r christiano was not used to int erpret this result as normal/abnormal . [place] 963420-12-06 04:34:00 Test Item Value Reference Range Interpretation Comments Basophils # (test code 0.1 See_Comment [Aut omated message] The = Basophils #) system which generated this result tra nsmitted reference range : <=0.2. The reference r christiano was not used to int erpret this result as normal/abnormal . [facility] HSLIAIZ6281-01-68 04:34:00 Test Item Value Reference Range Interpretation Comments Troponin-I (test code no gt See_Comment [Auto mated message] The = Troponin-I) system which g enerated this result transmit sheba reference range : <=0.40. The reference r christiano was not used to interpr et this result as edy l/abnormal. [facility] [employer] [id number] 04:34:00 Test Item Value Reference Range Interpretation Comments Glucose Lvl (test code = Glucose Lvl) 125 70-99 [facility] [id number] 04:34:00 Test Item Value Reference Range Interpretation Comments BUN (test code = BUN) 17 7-22 [facility] FBYGA8731-03-00 04:34:00 Test Item Value Reference Range Interpretation Comments Creatinine Lvl (test code = Creatinine 1.51 0.50-1.40 Lvl) [facility] [id number] 04:34:00 Test Item Value Reference Range Interpretation Comments Sodium Lvl (test code = Sodium Lvl) 142 135-145 [facility] [id number] 04:34:00 Test Item Value Reference Range Interpretation Comments Potassium Lvl (test code = Potassium 4.0 3.5-5.1 Lvl) [facility] [id number] 04:34:00 Test Item Value Reference Range Interpretation Comments Chloride Lvl (test code = Chloride Lvl) 108 95-109 [facility] [employer] [id number] 04:34:00 Test Item Value Reference Range Interpretation Comments CO2 (test code = CO2) 30 24-32 [facility] [id number] 04:34:00 Test Item Value Reference Range Interpretation Comments Calcium Lvl (test code = Calcium Lvl) 7.8 8.5-10.5 [facility] [id number] 04:34:00 Test Item Value Reference Range Interpretation Comments AGAP (test code = AGAP) 8.0 10.0-20.0 [facility]2020-12-06 04:34:00 Test Item Value Reference Range Interpretation Comments eGFR (test code = eGFR) 33 [facility] HospitalXazbnxvGONCBKRKUP7727-59-65 04:34:00 Test Item Value Reference Range Interpretation Comments WBC X 10x3 (test code = WBC X 10x3) 9.7 3.7-10.4 [facility] HospitalOzfnjxfQVXBNPXUUH2186-01-77 04:34:00 Test Item Value Reference Range Interpretation Comments RBC X 10x6 (test code = RBC X 10x6) 3.96 4.20-5.40 [facility] HospitalByiskdyQWJEIMRGNL7894-31-08 04:34:00 Test Item Value Reference Range Interpretation Comments Hgb (test code = Hgb) 10.6 12.0-16.0 [facility] HospitalGmqllhaNHKGPNUHIE3335-13-49 04:34:00 Test Item Value Reference Range Interpretation Comments Hct (test code = Hct) 32.6 36.0-48.0 [facility] HospitalYiudodjTZBLPVJXNL8364-24-52 04:34:00 Test Item Value Reference Range Interpretation Comments MCV (test code = MCV) 82.3 80.0-98.0 [facility] HospitalMfrkxplJWJUCWMSFB0568-57-85 04:34:00 Test Item Value Reference Range Interpretation Comments MCH (test code = MCH) 26.6 pg 27.0-31.0 [facility] HospitalJoqfvnzKWIPBYYRNE2562-16-45 04:34:00 Test Item Value Reference Range Interpretation Comments MCHC (test code = MCHC) 32.4 32.0-36.0 [facility] HospitalSmobxxdWVALFVCPNP9259-64-94 04:34:00 Test Item Value Reference Range Interpretation Comments RDW (test code = RDW) 16.8 11.5-14.5 [place] [address]-12-06 04:34:00 Test Item Value Reference Range Interpretation Comments Platelet (test code = Platelet) 178 133-450 [facility] HospitalFeugkchSSXLFIDSYY5793-31-66 04:34:00 Test Item Value Reference Range Interpretation Comments MPV (test code = MPV) 8.0 7.4-10.4 [facility] HospitalRxenzcqAAFAWHEUUP0325-46-18 04:34:00 Test Item Value Reference Range Interpretation Comments PT (test code = PT) 14.7 s 12.0-14.7 [place] 963420-12-06 04:34:00 Test Item Value Reference Range Interpretation Comments INR (test code = INR) 1.14 1 0.85-1.17 [place] 963420-12-06 04:34:00 Test Item Value Reference Range Interpretation Comments PTT (test code = PTT) 31.2 s 22.9-35.8 [place] 963420-12-06 04:34:00 Test Item Value Reference Range Interpretation Comments Segs (test code = Segs) 73.9 45.0-75.0 [place] 963420-12-06 04:34:00 Test Item Value Reference Range Interpretation Comments Lymphocytes (test code = Lymphocytes) 11.0 20.0-40.0 [place] 963420-12-06 04:34:00 Test Item Value Reference Range Interpretation Comments Monocytes (test code = Monocytes) 13.6 2.0-12.0 [place] 963420-12-06 04:34:00 Test Item Value Reference Range Interpretation Comments Eosinophils (test code = 0.7 See_Comment [A utomated message] The Eosinophils) system which ge nerated this result tra nsmitted reference range : <=4.0. The reference r christiano was not used to int erpret this result as normal/abnormal . [facility] HospitalGzznxssIOVCAWOCTA9593-01-34 04:34:00 Test Item Value Reference Range Interpretation Comments Basophils (test code = 0.8 See_Comment [Aut omated message] The Basophils) system which ge nerated this result tra nsmitted reference range : <=1.0. The reference r christiano was not used to int erpret this result as normal/abnormal . [facility] HospitalPjwooktJZZSICDLEQ4019-96-11 04:34:00 Test Item Value Reference Range Interpretation Comments Neutrophils # (test code = Neutrophils 7.2 1.5-8.1 #) [place] 963420-12-06 04:34:00 Test Item Value Reference Range Interpretation Comments Lymphocytes # (test code = Lymphocytes 1.1 1.0-5.5 #) [place] 963420-12-06 04:34:00 Test Item Value Reference Range Interpretation Comments Monocytes # (test code 1.3 See_Comment [Aut omated message] The = Monocytes #) system which generated this result tra nsmitted reference range : <=0.8. The reference r christiano was not used to int erpret this result as normal/abnormal . [facility]euynebXZWBZBJWQW2573-74-57 04:34:00 Test Item Value Reference Range Interpretation Comments Eosinophils # (test code 0.1 See_Comment [A utomated message] The = Eosinophils #) system whic h generated this result tra nsmitted reference range : <=0.5. The reference r christiano was not used to int erpret this result as normal/abnormal . [facility] HospitalZzcjyqfYGLLKFEKPG5904-46-30 04:34:00 Test Item Value Reference Range Interpretation Comments Basophils # (test code 0.1 See_Comment [Aut omated message] The = Basophils #) system which generated this result tra nsmitted reference range : <=0.2. The reference r christiano was not used to int erpret this result as normal/abnormal . [facility] BWSIFHO6203-02-83 04:34:00 Test Item Value Reference Range Interpretation Comments Troponin-I (test code no gt See_Comment [Auto mated message] The = Troponin-I) system which g enerated this result transmit sheba reference range : <=0.40. The reference r christiano was not used to interpr et this result as edy l/abnormal. [facility] [id number] 04:34:00 Test Item Value Reference Range Interpretation Comments Glucose Lvl (test code = Glucose Lvl) 125 70-99 [facility] [id number] 04:34:00 Test Item Value Reference Range Interpretation Comments BUN (test code = BUN) 17 7-22 [facility] [id number] 04:34:00 Test Item Value Reference Range Interpretation Comments Creatinine Lvl (test code = Creatinine 1.51 0.50-1.40 Lvl) [facility] [id number] 04:34:00 Test Item Value Reference Range Interpretation Comments Sodium Lvl (test code = Sodium Lvl) 142 135-145 [facility] [id number] 04:34:00 Test Item Value Reference Range Interpretation Comments Potassium Lvl (test code = Potassium 4.0 3.5-5.1 Lvl) [facility] [id number] 04:34:00 Test Item Value Reference Range Interpretation Comments Chloride Lvl (test code = Chloride Lvl) 108 95-109 [facility]2020-12-06 04:34:00 Test Item Value Reference Range Interpretation Comments CO2 (test code = CO2) 30 24-32 [place] 457350-12-06 04:34:00 Test Item Value Reference Range Interpretation Comments Calcium Lvl (test code = Calcium Lvl) 7.8 8.5-10.5 [place] 457350-12-06 04:34:00 Test Item Value Reference Range Interpretation Comments AGAP (test code = AGAP) 8.0 10.0-20.0 [facility]2020-12-06 04:34:00 Test Item Value Reference Range Interpretation Comments eGFR (test code = eGFR) 33 [facility] HospitalUcdmgwsRBFVUOCJUO4962-74-22 04:34:00 Test Item Value Reference Range Interpretation Comments WBC X 10x3 (test code = WBC X 10x3) 9.7 3.7-10.4 [place] 963420-12-06 04:34:00 Test Item Value Reference Range Interpretation Comments RBC X 10x6 (test code = RBC X 10x6) 3.96 4.20-5.40 [place] 963420-12-06 04:34:00 Test Item Value Reference Range Interpretation Comments Hgb (test code = Hgb) 10.6 12.0-16.0 [place] 963420-12-06 04:34:00 Test Item Value Reference Range Interpretation Comments Hct (test code = Hct) 32.6 36.0-48.0 [place] 963420-12-06 04:34:00 Test Item Value Reference Range Interpretation Comments MCV (test code = MCV) 82.3 80.0-98.0 [place] [address]-12-06 04:34:00 Test Item Value Reference Range Interpretation Comments MCH (test code = MCH) 26.6 pg 27.0-31.0 [place] 963420-12-06 04:34:00 Test Item Value Reference Range Interpretation Comments MCHC (test code = MCHC) 32.4 32.0-36.0 [place] 963420-12-06 04:34:00 Test Item Value Reference Range Interpretation Comments RDW (test code = RDW) 16.8 11.5-14.5 [place] [address]-12-06 04:34:00 Test Item Value Reference Range Interpretation Comments Platelet (test code = Platelet) 178 133-450 [place] 963420-12-06 04:34:00 Test Item Value Reference Range Interpretation Comments MPV (test code = MPV) 8.0 7.4-10.4 [place] 963420-12-06 04:34:00 Test Item Value Reference Range Interpretation Comments PT (test code = PT) 14.7 s 12.0-14.7 [place] [address]-12-06 04:34:00 Test Item Value Reference Range Interpretation Comments INR (test code = INR) 1.14 1 0.85-1.17 [place] [address]-12-06 04:34:00 Test Item Value Reference Range Interpretation Comments PTT (test code = PTT) 31.2 s 22.9-35.8 [place] [address]-12-06 04:34:00 Test Item Value Reference Range Interpretation Comments Segs (test code = Segs) 73.9 45.0-75.0 [place] 963420-12-06 04:34:00 Test Item Value Reference Range Interpretation Comments Lymphocytes (test code = Lymphocytes) 11.0 20.0-40.0 [place] [address]-12-06 04:34:00 Test Item Value Reference Range Interpretation Comments Monocytes (test code = Monocytes) 13.6 2.0-12.0 [place] [address]-12-06 04:34:00 Test Item Value Reference Range Interpretation Comments Eosinophils (test code = 0.7 See_Comment [A utomated message] The Eosinophils) system which ge nerated this result tra nsmitted reference range : <=4.0. The reference r christiano was not used to int erpret this result as normal/abnormal . [place] [address]-12-06 04:34:00 Test Item Value Reference Range Interpretation Comments Basophils (test code = 0.8 See_Comment [Aut omated message] The Basophils) system which ge nerated this result tra nsmitted reference range : <=1.0. The reference r christiano was not used to int erpret this result as normal/abnormal . [facility] HospitalEcfgiyzEGVASQWIWA0602-50-01 04:34:00 Test Item Value Reference Range Interpretation Comments Neutrophils # (test code = Neutrophils 7.2 1.5-8.1 #) [facility] HospitalEaqovglMDAHCIGGCN9112-16-29 04:34:00 Test Item Value Reference Range Interpretation Comments Lymphocytes # (test code = Lymphocytes 1.1 1.0-5.5 #) [place] 963420-12-06 04:34:00 Test Item Value Reference Range Interpretation Comments Monocytes # (test code 1.3 See_Comment [Aut omated message] The = Monocytes #) system which generated this result tra nsmitted reference range : <=0.8. The reference r christiano was not used to int erpret this result as normal/abnormal . [facility] HospitalVhddmhqIPGHBVEIMT4819-75-27 04:34:00 Test Item Value Reference Range Interpretation Comments Eosinophils # (test code 0.1 See_Comment [A utomated message] The = Eosinophils #) system whic h generated this result tra nsmitted reference range : <=0.5. The reference r christiano was not used to int erpret this result as normal/abnormal . [facility] HospitalAfiuhguNUJPLBVBSV9116-36-41 04:34:00 Test Item Value Reference Range Interpretation Comments Basophils # (test code 0.1 See_Comment [Aut omated message] The = Basophils #) system which generated this result tra nsmitted reference range : <=0.2. The reference r christiano was not used to int erpret this result as normal/abnormal . [facility] KKQNIGF5672-44-73 04:34:00 Test Item Value Reference Range Interpretation Comments Troponin-I (test code no gt See_Comment [Auto mated message] The = Troponin-I) system which g enerated this result transmit sheba reference range : <=0.40. The reference r christiano was not used to interpr et this result as edy l/abnormal. [facility] [id number] 04:34:00 Test Item Value Reference Range Interpretation Comments Glucose Lvl (test code = Glucose Lvl) 125 70-99 [facility] [id number] 04:34:00 Test Item Value Reference Range Interpretation Comments BUN (test code = BUN) 17 7-22 [facility] [id number] 04:34:00 Test Item Value Reference Range Interpretation Comments Creatinine Lvl (test code = Creatinine 1.51 0.50-1.40 Lvl) [place] 457350-12-06 04:34:00 Test Item Value Reference Range Interpretation Comments Sodium Lvl (test code = Sodium Lvl) 142 135-145 [place] 457350-12-06 04:34:00 Test Item Value Reference Range Interpretation Comments Potassium Lvl (test code = Potassium 4.0 3.5-5.1 Lvl) [place] 457350-12-06 04:34:00 Test Item Value Reference Range Interpretation Comments Chloride Lvl (test code = Chloride Lvl) 108 95-109 [place] 457350-12-06 04:34:00 Test Item Value Reference Range Interpretation Comments CO2 (test code = CO2) 30 24-32 [place] 457350-12-06 04:34:00 Test Item Value Reference Range Interpretation Comments Calcium Lvl (test code = Calcium Lvl) 7.8 8.5-10.5 [place] 457350-12-06 04:34:00 Test Item Value Reference Range Interpretation Comments AGAP (test code = AGAP) 8.0 10.0-20.0 [place] 457350-12-06 04:34:00 Test Item Value Reference Range Interpretation Comments eGFR (test code = eGFR) 33 [place] 963420-12-06 04:34:00 Test Item Value Reference Range Interpretation Comments WBC X 10x3 (test code = WBC X 10x3) 9.7 3.7-10.4 [place] 963420-12-06 04:34:00 Test Item Value Reference Range Interpretation Comments RBC X 10x6 (test code = RBC X 10x6) 3.96 4.20-5.40 [place] [address]-12-06 04:34:00 Test Item Value Reference Range Interpretation Comments Hgb (test code = Hgb) 10.6 12.0-16.0 [place] [address]-12-06 04:34:00 Test Item Value Reference Range Interpretation Comments Hct (test code = Hct) 32.6 36.0-48.0 [place] [address]-12-06 04:34:00 Test Item Value Reference Range Interpretation Comments MCV (test code = MCV) 82.3 80.0-98.0 [place] [place] [address]-[place]06 04:34:00 Test Item Value Reference Range Interpretation Comments MCH (test code = MCH) 26.6 pg 27.0-31.0 [place] 963420-12-06 04:34:00 Test Item Value Reference Range Interpretation Comments MCHC (test code = MCHC) 32.4 32.0-36.0 [place] 963420-12-06 04:34:00 Test Item Value Reference Range Interpretation Comments RDW (test code = RDW) 16.8 11.5-14.5 [place] [address]-12-06 04:34:00 Test Item Value Reference Range Interpretation Comments Platelet (test code = Platelet) 178 133-450 [place] 963420-12-06 04:34:00 Test Item Value Reference Range Interpretation Comments MPV (test code = MPV) 8.0 7.4-10.4 [place] [address]-12-06 04:34:00 Test Item Value Reference Range Interpretation Comments PT (test code = PT) 14.7 s 12.0-14.7 [place] 963420-12-06 04:34:00 Test Item Value Reference Range Interpretation Comments INR (test code = INR) 1.14 1 0.85-1.17 [place] 963420-12-06 04:34:00 Test Item Value Reference Range Interpretation Comments PTT (test code = PTT) 31.2 s 22.9-35.8 [place] 963420-12-06 04:34:00 Test Item Value Reference Range Interpretation Comments Segs (test code = Segs) 73.9 45.0-75.0 [place] 963420-12-06 04:34:00 Test Item Value Reference Range Interpretation Comments Lymphocytes (test code = Lymphocytes) 11.0 20.0-40.0 [place] [address]-12-06 04:34:00 Test Item Value Reference Range Interpretation Comments Monocytes (test code = Monocytes) 13.6 2.0-12.0 [place] [address]-12-06 04:34:00 Test Item Value Reference Range Interpretation Comments Eosinophils (test code = 0.7 See_Comment [A utomated message] The Eosinophils) system which ge nerated this result tra nsmitted reference range : <=4.0. The reference r christiano was not used to int erpret this result as normal/abnormal . [facility]GynccfiOBFIDFQOSZ6803-78-31 04:34:00 Test Item Value Reference Range Interpretation Comments Basophils (test code = 0.8 See_Comment [Aut omated message] The Basophils) system which ge nerated this result tra nsmitted reference range : <=1.0. The reference r christiano was not used to int erpret this result as normal/abnormal . [facility] HospitalMakhsogIZSDUFTISW4325-59-58 04:34:00 Test Item Value Reference Range Interpretation Comments Neutrophils # (test code = Neutrophils 7.2 1.5-8.1 #) [facility] HospitalUienjycJHJXARYQZS2059-80-92 04:34:00 Test Item Value Reference Range Interpretation Comments Lymphocytes # (test code = Lymphocytes 1.1 1.0-5.5 #) [facility] HospitalOhjqnwnITZUZVLMQA0758-69-05 04:34:00 Test Item Value Reference Range Interpretation Comments Monocytes # (test code 1.3 See_Comment [Aut omated message] The = Monocytes #) system which generated this result tra nsmitted reference range : <=0.8. The reference r christiano was not used to int erpret this result as normal/abnormal . [facility] HospitalCavylagBVSYRXNXHG5492-80-68 04:34:00 Test Item Value Reference Range Interpretation Comments Eosinophils # (test code 0.1 See_Comment [A utomated message] The = Eosinophils #) system wh h generated this result tra nsmitted reference range : <=0.5. The reference r christiano was not used to int erpret this result as normal/abnormal . [facility] HospitalCxwtixkDZWOVRHMFV3343-59-54 04:34:00 Test Item Value Reference Range Interpretation Comments Basophils # (test code 0.1 See_Comment [Aut omated message] The = Basophils #) system which generated this result tra nsmitted reference range : <=0.2. The reference r christiano was not used to int erpret this result as normal/abnormal . [facility] CenterCARD[facility] KLYNLVD2816-43-29 04:34:00 Test Item Value Reference Range Interpretation Comments Troponin-I (test code no gt See_Comment [Auto mated message] The = Troponin-I) system which g enerated this result transmit sheba reference range : <=0.40. The reference r christiano was not used to interpr et this result as edy l/abnormal. [place] 457350-12-06 04:34:00 Test Item Value Reference Range Interpretation Comments Glucose Lvl (test code = Glucose Lvl) 125 70-99 [place] [address]-12-06 04:34:00 Test Item Value Reference Range Interpretation Comments BUN (test code = BUN) 17 7-22 [place] [address]-12-06 04:34:00 Test Item Value Reference Range Interpretation Comments Creatinine Lvl (test code = Creatinine 1.51 0.50-1.40 Lvl) [place] [address]-12-06 04:34:00 Test Item Value Reference Range Interpretation Comments Sodium Lvl (test code = Sodium Lvl) 142 135-145 [place] [address]-12-06 04:34:00 Test Item Value Reference Range Interpretation Comments Potassium Lvl (test code = Potassium 4.0 3.5-5.1 Lvl) [place] 457350-12-06 04:34:00 Test Item Value Reference Range Interpretation Comments Chloride Lvl (test code = Chloride Lvl) 108 95-109 [place] 457350-12-06 04:34:00 Test Item Value Reference Range Interpretation Comments CO2 (test code = CO2) 30 24-32 [place] [address]-12-06 04:34:00 Test Item Value Reference Range Interpretation Comments Calcium Lvl (test code = Calcium Lvl) 7.8 8.5-10.5 [place] 457350-12-06 04:34:00 Test Item Value Reference Range Interpretation Comments AGAP (test code = AGAP) 8.0 10.0-20.0 [place] [address]-12-06 04:34:00 Test Item Value Reference Range Interpretation Comments eGFR (test code = eGFR) 33 [place] 963420-12-06 04:34:00 Test Item Value Reference Range Interpretation Comments WBC X 10x3 (test code = WBC X 10x3) 9.7 3.7-10.4 [place] 963420-12-06 04:34:00 Test Item Value Reference Range Interpretation Comments RBC X 10x6 (test code = RBC X 10x6) 3.96 4.20-5.40 [place] 963420-12-06 04:34:00 Test Item Value Reference Range Interpretation Comments Hgb (test code = Hgb) 10.6 12.0-16.0 [place] [address]-12-06 04:34:00 Test Item Value Reference Range Interpretation Comments Hct (test code = Hct) 32.6 36.0-48.0 [place] 963420-12-06 04:34:00 Test Item Value Reference Range Interpretation Comments MCV (test code = MCV) 82.3 80.0-98.0 [place] [address]-12-06 04:34:00 Test Item Value Reference Range Interpretation Comments MCH (test code = MCH) 26.6 pg 27.0-31.0 [place] [address]-12-06 04:34:00 Test Item Value Reference Range Interpretation Comments MCHC (test code = MCHC) 32.4 32.0-36.0 [place] 963420-12-06 04:34:00 Test Item Value Reference Range Interpretation Comments RDW (test code = RDW) 16.8 11.5-14.5 [facility] HospitalEwgqpvoBJNQQQLLPN0386-54-95 04:34:00 Test Item Value Reference Range Interpretation Comments Platelet (test code = Platelet) 178 133-450 [facility] HospitalXdkzjacXJVLQJYFEF5644-71-44 04:34:00 Test Item Value Reference Range Interpretation Comments MPV (test code = MPV) 8.0 7.4-10.4 [place] [address]-12-06 04:34:00 Test Item Value Reference Range Interpretation Comments PT (test code = PT) 14.7 s 12.0-14.7 [place] [address]-12-06 04:34:00 Test Item Value Reference Range Interpretation Comments INR (test code = INR) 1.14 1 0.85-1.17 [place] 963420-12-06 04:34:00 Test Item Value Reference Range Interpretation Comments PTT (test code = PTT) 31.2 s 22.9-35.8 [place] 963420-12-06 04:34:00 Test Item Value Reference Range Interpretation Comments Segs (test code = Segs) 73.9 45.0-75.0 [facility] HospitalOdfjtlsTCFTMFOBHT0299-39-15 04:34:00 Test Item Value Reference Range Interpretation Comments Lymphocytes (test code = Lymphocytes) 11.0 20.0-40.0 [place] 963420-12-06 04:34:00 Test Item Value Reference Range Interpretation Comments Monocytes (test code = Monocytes) 13.6 2.0-12.0 [facility] HospitalIwctzfmCHMCEMREPW6889-42-02 04:34:00 Test Item Value Reference Range Interpretation Comments Eosinophils (test code = 0.7 See_Comment [A utomated message] The Eosinophils) system which ge nerated this result tra nsmitted reference range : <=4.0. The reference r christiano was not used to int erpret this result as normal/abnormal . [facility] HospitalFkzemdhFVXHKYLCUY5586-87-16 04:34:00 Test Item Value Reference Range Interpretation Comments Basophils (test code = 0.8 See_Comment [Aut omated message] The Basophils) system which ge nerated this result tra nsmitted reference range : <=1.0. The reference r christiano was not used to int erpret this result as normal/abnormal . [facility] HospitalDpibncwBZGQKWYSVE9585-27-41 04:34:00 Test Item Value Reference Range Interpretation Comments Neutrophils # (test code = Neutrophils 7.2 1.5-8.1 #) [facility] HospitalClhdqelKZRRRZRIJP3764-73-83 04:34:00 Test Item Value Reference Range Interpretation Comments Lymphocytes # (test code = Lymphocytes 1.1 1.0-5.5 #) [place] 963420-12-06 04:34:00 Test Item Value Reference Range Interpretation Comments Monocytes # (test code 1.3 See_Comment [Aut omated message] The = Monocytes #) system which generated this result tra nsmitted reference range : <=0.8. The reference r christiano was not used to int erpret this result as normal/abnormal . [place] 963420-12-06 04:34:00 Test Item Value Reference Range Interpretation Comments Eosinophils # (test code 0.1 See_Comment [A utomated message] The = Eosinophils #) system ic h generated this result tra nsmitted reference range : <=0.5. The reference r christiano was not used to int erpret this result as normal/abnormal . [facility] CenterVqpsruyBIRGIPTYCG7527-63-48 04:34:00 Test Item Value Reference Range Interpretation Comments Basophils # (test code 0.1 See_Comment [Aut omated message] The = Basophils #) system which generated this result tra nsmitted reference range : <=0.2. The reference r christiano was not used to int erpret this result as normal/abnormal . [facility] CenterCARDIAC [id number] 04:34:00 Test Item Value Reference Range Interpretation Comments Troponin-I (test code no gt See_Comment [Auto mated message] The = Troponin-I) system which g enerated this result transmit sheba reference range : <=0.40. The reference r christiano was not used to interpr et this result as edy l/abnormal. [facility] [id number] 04:34:00 Test Item Value Reference Range Interpretation Comments Glucose Lvl (test code = Glucose Lvl) 125 70-99 [facility] [id number] 04:34:00 Test Item Value Reference Range Interpretation Comments BUN (test code = BUN) 17 7-22 [facility] [id number] 04:34:00 Test Item Value Reference Range Interpretation Comments Creatinine Lvl (test code = Creatinine 1.51 0.50-1.40 Lvl) [facility] [id number] 04:34:00 Test Item Value Reference Range Interpretation Comments Sodium Lvl (test code = Sodium Lvl) 142 135-145 [facility] [id number] 04:34:00 Test Item Value Reference Range Interpretation Comments Potassium Lvl (test code = Potassium 4.0 3.5-5.1 Lvl) [facility] [id number] 04:34:00 Test Item Value Reference Range Interpretation Comments Chloride Lvl (test code = Chloride Lvl) 108 95-109 [facility] [employer] [id number] 04:34:00 Test Item Value Reference Range Interpretation Comments CO2 (test code = CO2) 30 24-32 [facility] [id number] 04:34:00 Test Item Value Reference Range Interpretation Comments Calcium Lvl (test code = Calcium Lvl) 7.8 8.5-10.5 [facility] [id number] 04:34:00 Test Item Value Reference Range Interpretation Comments AGAP (test code = AGAP) 8.0 10.0-20.0 [facility]2020-12-06 04:34:00 Test Item Value Reference Range Interpretation Comments eGFR (test code = eGFR) 33 [facility] HospitalBljbcnpQRAHOSVVBA9955-84-04 04:34:00 Test Item Value Reference Range Interpretation Comments WBC X 10x3 (test code = WBC X 10x3) 9.7 3.7-10.4 [facility] HospitalNwkfnyjNNEPGFYDTQ0530-89-15 04:34:00 Test Item Value Reference Range Interpretation Comments RBC X 10x6 (test code = RBC X 10x6) 3.96 4.20-5.40 [facility] HospitalUpofjuqDVPKRJPQDT7965-80-68 04:34:00 Test Item Value Reference Range Interpretation Comments Hgb (test code = Hgb) 10.6 12.0-16.0 [facility] HospitalTisxxisXZGXGSOXNU0026-13-49 04:34:00 Test Item Value Reference Range Interpretation Comments Hct (test code = Hct) 32.6 36.0-48.0 [facility] HospitalAirwuzuFORJAROFGM3518-91-11 04:34:00 Test Item Value Reference Range Interpretation Comments MCV (test code = MCV) 82.3 80.0-98.0 [facility] HospitalNpeujntBHYDFZIOXO0095-60-30 04:34:00 Test Item Value Reference Range Interpretation Comments MCH (test code = MCH) 26.6 pg 27.0-31.0 [facility] HospitalJghrvduYJHQSTXTKE7273-91-66 04:34:00 Test Item Value Reference Range Interpretation Comments MCHC (test code = MCHC) 32.4 32.0-36.0 [facility] HospitalUmznkouGPLBJNBWQQ9214-41-20 04:34:00 Test Item Value Reference Range Interpretation Comments RDW (test code = RDW) 16.8 11.5-14.5 [facility] HospitalBcgzxazXLMEXRCJOY7520-27-99 04:34:00 Test Item Value Reference Range Interpretation Comments Platelet (test code = Platelet) 178 133-450 [facility] HospitalWcwadfuRABGWAULOS3446-15-12 04:34:00 Test Item Value Reference Range Interpretation Comments MPV (test code = MPV) 8.0 7.4-10.4 [facility] HospitalFsnotjrOBMLSDZVFZ6146-27-71 04:34:00 Test Item Value Reference Range Interpretation Comments PT (test code = PT) 14.7 s 12.0-14.7 [place] 963420-12-06 04:34:00 Test Item Value Reference Range Interpretation Comments INR (test code = INR) 1.14 1 0.85-1.17 [place] 963420-12-06 04:34:00 Test Item Value Reference Range Interpretation Comments PTT (test code = PTT) 31.2 s 22.9-35.8 [place] 963420-12-06 04:34:00 Test Item Value Reference Range Interpretation Comments Segs (test code = Segs) 73.9 45.0-75.0 [place] 963420-12-06 04:34:00 Test Item Value Reference Range Interpretation Comments Lymphocytes (test code = Lymphocytes) 11.0 20.0-40.0 [place] [address]-12-06 04:34:00 Test Item Value Reference Range Interpretation Comments Monocytes (test code = Monocytes) 13.6 2.0-12.0 [place] 963420-12-06 04:34:00 Test Item Value Reference Range Interpretation Comments Eosinophils (test code = 0.7 See_Comment [A utomated message] The Eosinophils) system which ge nerated this result tra nsmitted reference range : <=4.0. The reference r christiano was not used to int erpret this result as normal/abnormal . [facility] HospitalIcsbuvlXUUVUAKHNN2621-03-91 04:34:00 Test Item Value Reference Range Interpretation Comments Basophils (test code = 0.8 See_Comment [Aut omated message] The Basophils) system which ge nerated this result tra nsmitted reference range : <=1.0. The reference r christiano was not used to int erpret this result as normal/abnormal . [facility] HospitalSdmimviYZPCMHNCLC1913-57-57 04:34:00 Test Item Value Reference Range Interpretation Comments Neutrophils # (test code = Neutrophils 7.2 1.5-8.1 #) [place] 963420-12-06 04:34:00 Test Item Value Reference Range Interpretation Comments Lymphocytes # (test code = Lymphocytes 1.1 1.0-5.5 #) [place] 963420-12-06 04:34:00 Test Item Value Reference Range Interpretation Comments Monocytes # (test code 1.3 See_Comment [Aut omated message] The = Monocytes #) system which generated this result tra nsmitted reference range : <=0.8. The reference r christiano was not used to int erpret this result as normal/abnormal . [facility]aleViva VisionCARDIAC [id number] 04:34:00 Test Item Value Reference Range Interpretation Comments Troponin-I (test code no gt See_Comment [Auto mated message] The = Troponin-I) system which g enerated this result transmit sheba reference range : <=0.40. The reference r christiano was not used to interpr et this result as edy l/abnormal. [facility] SunnyvaleBawlfjoDKRSDBTYDF4609-48-70 04:34:00 Test Item Value Reference Range Interpretation Comments Eosinophils # (test code 0.1 See_Comment [A utomated message] The = Eosinophils #) system whic h generated this result tra nsmitted reference range : <=0.5. The reference r christiano was not used to int erpret this result as normal/abnormal . [facility] [employer] [id number] 04:34:00 Test Item Value Reference Range Interpretation Comments Glucose Lvl (test code = Glucose Lvl) 125 70-99 [facility] [employer] [id number] 04:34:00 Test Item Value Reference Range Interpretation Comments BUN (test code = BUN) 17 7-22 [facility] [employer] [id number] 04:34:00 Test Item Value Reference Range Interpretation Comments Creatinine Lvl (test code = Creatinine 1.51 0.50-1.40 Lvl) [facility] [employer] [id number] 04:34:00 Test Item Value Reference Range Interpretation Comments Sodium Lvl (test code = Sodium Lvl) 142 135-145 [facility] [employer] [id number] 04:34:00 Test Item Value Reference Range Interpretation Comments Potassium Lvl (test code = Potassium 4.0 3.5-5.1 Lvl) [facility] [employer] [id number] 04:34:00 Test Item Value Reference Range Interpretation Comments Chloride Lvl (test code = Chloride Lvl) 108 95-109 [facility] [employer] [id number] 04:34:00 Test Item Value Reference Range Interpretation Comments CO2 (test code = CO2) 30 24-32 [facility] [employer] [id number] 04:34:00 Test Item Value Reference Range Interpretation Comments Calcium Lvl (test code = Calcium Lvl) 7.8 8.5-10.5 [facility]2020-12-06 04:34:00 Test Item Value Reference Range Interpretation Comments AGAP (test code = AGAP) 8.0 10.0-20.0 [facility] CenterSAMHI Hotels [id number] 04:34:00 Test Item Value Reference Range Interpretation Comments eGFR (test code = eGFR) 33 [facility] HospitalXkuncehHLBCJJRUZR8357-51-61 04:34:00 Test Item Value Reference Range Interpretation Comments Basophils # (test code 0.1 See_Comment [Aut omated message] The = Basophils #) system which generated this result tra nsmitted reference range : <=0.2. The reference r christiano was not used to int erpret this result as normal/abnormal . [place] 963420-12-06 04:34:00 Test Item Value Reference Range Interpretation Comments WBC X 10x3 (test code = WBC X 10x3) 9.7 3.7-10.4 [place] 963420-12-06 04:34:00 Test Item Value Reference Range Interpretation Comments RBC X 10x6 (test code = RBC X 10x6) 3.96 4.20-5.40 [place] 963420-12-06 04:34:00 Test Item Value Reference Range Interpretation Comments Hgb (test code = Hgb) 10.6 12.0-16.0 [place] 963420-12-06 04:34:00 Test Item Value Reference Range Interpretation Comments Hct (test code = Hct) 32.6 36.0-48.0 [place] [address]-12-06 04:34:00 Test Item Value Reference Range Interpretation Comments MCV (test code = MCV) 82.3 80.0-98.0 [place] [address]-12-06 04:34:00 Test Item Value Reference Range Interpretation Comments MCH (test code = MCH) 26.6 pg 27.0-31.0 [place] 963420-12-06 04:34:00 Test Item Value Reference Range Interpretation Comments MCHC (test code = MCHC) 32.4 32.0-36.0 [place] [address]-12-06 04:34:00 Test Item Value Reference Range Interpretation Comments RDW (test code = RDW) 16.8 11.5-14.5 [place] [address]-12-06 04:34:00 Test Item Value Reference Range Interpretation Comments Platelet (test code = Platelet) 178 133-450 [place] 963420-12-06 04:34:00 Test Item Value Reference Range Interpretation Comments MPV (test code = MPV) 8.0 7.4-10.4 [place] [address]-12-06 04:34:00 Test Item Value Reference Range Interpretation Comments PT (test code = PT) 14.7 s 12.0-14.7 [place] [address]-12-06 04:34:00 Test Item Value Reference Range Interpretation Comments INR (test code = INR) 1.14 1 0.85-1.17 [place] [address]-12-06 04:34:00 Test Item Value Reference Range Interpretation Comments PTT (test code = PTT) 31.2 s 22.9-35.8 [place] [address]-12-06 04:34:00 Test Item Value Reference Range Interpretation Comments Segs (test code = Segs) 73.9 45.0-75.0 [place] [address]-12-06 04:34:00 Test Item Value Reference Range Interpretation Comments Lymphocytes (test code = Lymphocytes) 11.0 20.0-40.0 [place] [address]-12-06 04:34:00 Test Item Value Reference Range Interpretation Comments Monocytes (test code = Monocytes) 13.6 2.0-12.0 [place] [address]-12-06 04:34:00 Test Item Value Reference Range Interpretation Comments Eosinophils (test code = 0.7 See_Comment [A utomated message] The Eosinophils) system which ge nerated this result tra nsmitted reference range : <=4.0. The reference r christiano was not used to int erpret this result as normal/abnormal . [place] [address]-12-06 04:34:00 Test Item Value Reference Range Interpretation Comments Basophils (test code = 0.8 See_Comment [Aut omated message] The Basophils) system which ge nerated this result tra nsmitted reference range : <=1.0. The reference r christiano was not used to int erpret this result as normal/abnormal . [facility] CenterQrxpowcRTSKRABCVJ1991-30-19 04:34:00 Test Item Value Reference Range Interpretation Comments Neutrophils # (test code = Neutrophils 7.2 1.5-8.1 #) [facility]XnnslqpYKSCMHBDQK7755-69-04 04:34:00 Test Item Value Reference Range Interpretation Comments Lymphocytes # (test code = Lymphocytes 1.1 1.0-5.5 #) [facility] HospitalHaxtgniFXRYYJTFSF6734-04-44 04:34:00 Test Item Value Reference Range Interpretation Comments Monocytes # (test code 1.3 See_Comment [Aut omated message] The = Monocytes #) system which generated this result tra nsmitted reference range : <=0.8. The reference r christiano was not used to int erpret this result as normal/abnormal . [facility] HospitalIahqkxgYMFCLWLPTO7418-60-68 04:34:00 Test Item Value Reference Range Interpretation Comments Eosinophils # (test code 0.1 See_Comment [A utomated message] The = Eosinophils #) system whic h generated this result tra nsmitted reference range : <=0.5. The reference r christiano was not used to int erpret this result as normal/abnormal . [facility] HospitalZrvsukyWPQTQIBAZK5121-56-93 04:34:00 Test Item Value Reference Range Interpretation Comments Basophils # (test code 0.1 See_Comment [Aut omated message] The = Basophils #) system which generated this result tra nsmitted reference range : <=0.2. The reference r christiano was not used to int erpret this result as normal/abnormal . [facility] CenterCARDIAC AEBRVTA7389-29-03 04:34:00 Test Item Value Reference Range Interpretation Comments Troponin-I (test code no gt See_Comment [Auto mated message] The = Troponin-I) system which g enerated this result transmit sheba reference range : <=0.40. The reference r christiano was not used to interpr et this result as edy l/abnormal. [facility] [id number] 04:34:00 Test Item Value Reference Range Interpretation Comments Glucose Lvl (test code = Glucose Lvl) 125 70-99 [facility] [id number] 04:34:00 Test Item Value Reference Range Interpretation Comments BUN (test code = BUN) 17 7-22 [facility]2020-12-06 04:34:00 Test Item Value Reference Range Interpretation Comments Creatinine Lvl (test code = Creatinine 1.51 0.50-1.40 Lvl) [place] 457350-12-06 04:34:00 Test Item Value Reference Range Interpretation Comments Sodium Lvl (test code = Sodium Lvl) 142 135-145 [place] 457350-12-06 04:34:00 Test Item Value Reference Range Interpretation Comments Potassium Lvl (test code = Potassium 4.0 3.5-5.1 Lvl) [place] 457350-12-06 04:34:00 Test Item Value Reference Range Interpretation Comments Chloride Lvl (test code = Chloride Lvl) 108 95-109 [place] 457350-12-06 04:34:00 Test Item Value Reference Range Interpretation Comments CO2 (test code = CO2) 30 24-32 [place] [address]-12-06 04:34:00 Test Item Value Reference Range Interpretation Comments Calcium Lvl (test code = Calcium Lvl) 7.8 8.5-10.5 [place] 457350-12-06 04:34:00 Test Item Value Reference Range Interpretation Comments AGAP (test code = AGAP) 8.0 10.0-20.0 [place] 457350-12-06 04:34:00 Test Item Value Reference Range Interpretation Comments eGFR (test code = eGFR) 33 [place] [address]-12-06 04:34:00 Test Item Value Reference Range Interpretation Comments WBC X 10x3 (test code = WBC X 10x3) 9.7 3.7-10.4 [place] [address]-12-06 04:34:00 Test Item Value Reference Range Interpretation Comments RBC X 10x6 (test code = RBC X 10x6) 3.96 4.20-5.40 [place] [address]-12-06 04:34:00 Test Item Value Reference Range Interpretation Comments Hgb (test code = Hgb) 10.6 12.0-16.0 [place] [address]-12-06 04:34:00 Test Item Value Reference Range Interpretation Comments Hct (test code = Hct) 32.6 36.0-48.0 [place] [address]-12-06 04:34:00 Test Item Value Reference Range Interpretation Comments MCV (test code = MCV) 82.3 80.0-98.0 [place] 963420-12-06 04:34:00 Test Item Value Reference Range Interpretation Comments MCH (test code = MCH) 26.6 pg 27.0-31.0 [place] 963420-12-06 04:34:00 Test Item Value Reference Range Interpretation Comments MCHC (test code = MCHC) 32.4 32.0-36.0 [place] 963420-12-06 04:34:00 Test Item Value Reference Range Interpretation Comments RDW (test code = RDW) 16.8 11.5-14.5 [place] 963420-12-06 04:34:00 Test Item Value Reference Range Interpretation Comments Platelet (test code = Platelet) 178 133-450 [facility]wiwmpyQFAZDWZOOJ8277-70-87 04:34:00 Test Item Value Reference Range Interpretation Comments MPV (test code = MPV) 8.0 7.4-10.4 [place] 963420-12-06 04:34:00 Test Item Value Reference Range Interpretation Comments PT (test code = PT) 14.7 s 12.0-14.7 [place] 963420-12-06 04:34:00 Test Item Value Reference Range Interpretation Comments INR (test code = INR) 1.14 1 0.85-1.17 [place] [address]-12-06 04:34:00 Test Item Value Reference Range Interpretation Comments PTT (test code = PTT) 31.2 s 22.9-35.8 [place] [address]-12-06 04:34:00 Test Item Value Reference Range Interpretation Comments Segs (test code = Segs) 73.9 45.0-75.0 [place] [address]-12-06 04:34:00 Test Item Value Reference Range Interpretation Comments Lymphocytes (test code = Lymphocytes) 11.0 20.0-40.0 [place] 963420-12-06 04:34:00 Test Item Value Reference Range Interpretation Comments Monocytes (test code = Monocytes) 13.6 2.0-12.0 [place] 963420-12-06 04:34:00 Test Item Value Reference Range Interpretation Comments Eosinophils (test code = 0.7 See_Comment [A utomated message] The Eosinophils) system which ge nerated this result tra nsmitted reference range : <=4.0. The reference r christiano was not used to int erpret this result as normal/abnormal . [facility]QcfxprqQOJQUNQCQB9074-53-74 04:34:00 Test Item Value Reference Range Interpretation Comments Basophils (test code = 0.8 See_Comment [Aut omated message] The Basophils) system which ge nerated this result tra nsmitted reference range : <=1.0. The reference r christiano was not used to int erpret this result as normal/abnormal . [facility] HospitalVcsbgelZNTEBECFGL8082-10-06 04:34:00 Test Item Value Reference Range Interpretation Comments Neutrophils # (test code = Neutrophils 7.2 1.5-8.1 #) [facility] HospitalIliojzdAZMSWSGNCR7768-33-21 04:34:00 Test Item Value Reference Range Interpretation Comments Lymphocytes # (test code = Lymphocytes 1.1 1.0-5.5 #) [facility] HospitalAltdtoaRTWVVVYMIX1356-26-91 04:34:00 Test Item Value Reference Range Interpretation Comments Monocytes # (test code 1.3 See_Comment [Aut omated message] The = Monocytes #) system which generated this result tra nsmitted reference range : <=0.8. The reference r christiano was not used to int erpret this result as normal/abnormal . [facility] HospitalOwjrlpsPBLYPZZGVW2216-55-90 04:34:00 Test Item Value Reference Range Interpretation Comments Eosinophils # (test code 0.1 See_Comment [A utomated message] The = Eosinophils #) system whic h generated this result tra nsmitted reference range : <=0.5. The reference r christiano was not used to int erpret this result as normal/abnormal . [facility] HospitalKaxpengUHVJKMRQWM9812-74-74 04:34:00 Test Item Value Reference Range Interpretation Comments Basophils # (test code 0.1 See_Comment [Aut omated message] The = Basophils #) system which generated this result tra nsmitted reference range : <=0.2. The reference r christiano was not used to int erpret this result as normal/abnormal . [facility] HYGTNJO0844-00-42 04:34:00 Test Item Value Reference Range Interpretation Comments Troponin-I (test code no gt See_Comment [Auto mated message] The = Troponin-I) system which g enerated this result transmit sheba reference range : <=0.40. The reference r christiano was not used to interpr et this result as edy l/abnormal. [place] 457350-12-06 04:34:00 Test Item Value Reference Range Interpretation Comments Glucose Lvl (test code = Glucose Lvl) 125 70-99 [place] 457350-12-06 04:34:00 Test Item Value Reference Range Interpretation Comments BUN (test code = BUN) 17 7-22 [place] [address]-12-06 04:34:00 Test Item Value Reference Range Interpretation Comments Creatinine Lvl (test code = Creatinine 1.51 0.50-1.40 Lvl) [place] 457350-12-06 04:34:00 Test Item Value Reference Range Interpretation Comments Sodium Lvl (test code = Sodium Lvl) 142 135-145 [place] [address]-12-06 04:34:00 Test Item Value Reference Range Interpretation Comments Potassium Lvl (test code = Potassium 4.0 3.5-5.1 Lvl) [place] 457350-12-06 04:34:00 Test Item Value Reference Range Interpretation Comments Chloride Lvl (test code = Chloride Lvl) 108 95-109 [place] 457350-12-06 04:34:00 Test Item Value Reference Range Interpretation Comments CO2 (test code = CO2) 30 24-32 [place] 457350-12-06 04:34:00 Test Item Value Reference Range Interpretation Comments Calcium Lvl (test code = Calcium Lvl) 7.8 8.5-10.5 [place] 457350-12-06 04:34:00 Test Item Value Reference Range Interpretation Comments AGAP (test code = AGAP) 8.0 10.0-20.0 [place] 457350-12-06 04:34:00 Test Item Value Reference Range Interpretation Comments eGFR (test code = eGFR) 33 [place] [address]-12-06 04:34:00 Test Item Value Reference Range Interpretation Comments WBC X 10x3 (test code = WBC X 10x3) 9.7 3.7-10.4 [place] [address]-12-06 04:34:00 Test Item Value Reference Range Interpretation Comments RBC X 10x6 (test code = RBC X 10x6) 3.96 4.20-5.40 [facility] HospitalVpahrpoCKXBKBLQUI0111-80-51 04:34:00 Test Item Value Reference Range Interpretation Comments Hgb (test code = Hgb) 10.6 12.0-16.0 [place] 963420-12-06 04:34:00 Test Item Value Reference Range Interpretation Comments Hct (test code = Hct) 32.6 36.0-48.0 [facility] HospitalKuibplhIMPHEEUEBV0763-22-30 04:34:00 Test Item Value Reference Range Interpretation Comments MCV (test code = MCV) 82.3 80.0-98.0 [place] 963420-12-06 04:34:00 Test Item Value Reference Range Interpretation Comments MCH (test code = MCH) 26.6 pg 27.0-31.0 [facility] HospitalIlklqpaMGZVPSSKYB0535-94-45 04:34:00 Test Item Value Reference Range Interpretation Comments MCHC (test code = MCHC) 32.4 32.0-36.0 [facility] HospitalFhtlmiqBBNNLEIZVW3821-30-49 04:34:00 Test Item Value Reference Range Interpretation Comments RDW (test code = RDW) 16.8 11.5-14.5 [facility] HospitalSfrfwadLMLJQECFXE9911-83-14 04:34:00 Test Item Value Reference Range Interpretation Comments Platelet (test code = Platelet) 178 133-450 [facility] HospitalJqczjymVCGPJAKQLA4235-13-15 04:34:00 Test Item Value Reference Range Interpretation Comments MPV (test code = MPV) 8.0 7.4-10.4 [place] 963420-12-06 04:34:00 Test Item Value Reference Range Interpretation Comments PT (test code = PT) 14.7 s 12.0-14.7 [place] [address]-12-06 04:34:00 Test Item Value Reference Range Interpretation Comments INR (test code = INR) 1.14 1 0.85-1.17 [place] 963420-12-06 04:34:00 Test Item Value Reference Range Interpretation Comments PTT (test code = PTT) 31.2 s 22.9-35.8 [place] 963420-12-06 04:34:00 Test Item Value Reference Range Interpretation Comments Segs (test code = Segs) 73.9 45.0-75.0 [place] 963420-12-06 04:34:00 Test Item Value Reference Range Interpretation Comments Lymphocytes (test code = Lymphocytes) 11.0 20.0-40.0 [place] 963420-12-06 04:34:00 Test Item Value Reference Range Interpretation Comments Monocytes (test code = Monocytes) 13.6 2.0-12.0 [place] 963420-12-06 04:34:00 Test Item Value Reference Range Interpretation Comments Eosinophils (test code = 0.7 See_Comment [A utomated message] The Eosinophils) system which ge nerated this result tra nsmitted reference range : <=4.0. The reference r christiano was not used to int erpret this result as normal/abnormal . [place] [address]-12-06 04:34:00 Test Item Value Reference Range Interpretation Comments Basophils (test code = 0.8 See_Comment [Aut omated message] The Basophils) system which ge nerated this result tra nsmitted reference range : <=1.0. The reference r christiano was not used to int erpret this result as normal/abnormal . [facility] HospitalCihxgdwYLVUMGRBRN1046-67-55 04:34:00 Test Item Value Reference Range Interpretation Comments Neutrophils # (test code = Neutrophils 7.2 1.5-8.1 #) [place] 963420-12-06 04:34:00 Test Item Value Reference Range Interpretation Comments Lymphocytes # (test code = Lymphocytes 1.1 1.0-5.5 #) [place] 963420-12-06 04:34:00 Test Item Value Reference Range Interpretation Comments Monocytes # (test code 1.3 See_Comment [Aut omated message] The = Monocytes #) system which generated this result tra nsmitted reference range : <=0.8. The reference r christiano was not used to int erpret this result as normal/abnormal . [place] 963420-12-06 04:34:00 Test Item Value Reference Range Interpretation Comments Eosinophils # (test code 0.1 See_Comment [A utomated message] The = Eosinophils #) system ic h generated this result tra nsmitted reference range : <=0.5. The reference r christiano was not used to int erpret this result as normal/abnormal . [facility]PfjdewdFVNUZRIVML[facility] 04:34:00 Test Item Value Reference Range Interpretation Comments Basophils # (test code 0.1 See_Comment [Aut omated message] The = Basophils #) system which generated this result tra nsmitted reference range : <=0.2. The reference r christiano was not used to int erpret this result as normal/abnormal . [facility] CenterCARD[facility] [id number] 04:34:00 Test Item Value Reference Range Interpretation Comments Troponin-I (test code no gt See_Comment [Auto mated message] The = Troponin-I) system which g enerated this result transmit sheba reference range : <=0.40. The reference r christiano was not used to interpr et this result as edy l/abnormal. [facility]ale[facility] [id number] 04:34:00 Test Item Value Reference Range Interpretation Comments Glucose Lvl (test code = Glucose Lvl) 125 70-99 [facility] [id number] 04:34:00 Test Item Value Reference Range Interpretation Comments BUN (test code = BUN) 17 7-22 [facility] [id number] 04:34:00 Test Item Value Reference Range Interpretation Comments Creatinine Lvl (test code = Creatinine 1.51 0.50-1.40 Lvl) [facility] [id number] 04:34:00 Test Item Value Reference Range Interpretation Comments Sodium Lvl (test code = Sodium Lvl) 142 135-145 [facility] [id number] 04:34:00 Test Item Value Reference Range Interpretation Comments Potassium Lvl (test code = Potassium 4.0 3.5-5.1 Lvl) [facility] [id number] 04:34:00 Test Item Value Reference Range Interpretation Comments Chloride Lvl (test code = Chloride Lvl) 108 95-109 [facility] [employer] [id number] 04:34:00 Test Item Value Reference Range Interpretation Comments CO2 (test code = CO2) 30 24-32 [facility] [id number] 04:34:00 Test Item Value Reference Range Interpretation Comments Calcium Lvl (test code = Calcium Lvl) 7.8 8.5-10.5 [facility] EBGIF3532-01-04 04:34:00 Test Item Value Reference Range Interpretation Comments AGAP (test code = AGAP) 8.0 10.0-20.0 [facility]2020-12-06 04:34:00 Test Item Value Reference Range Interpretation Comments eGFR (test code = eGFR) 33 [facility] HospitalWehwvvpDZIKGQLGAU1053-56-72 04:34:00 Test Item Value Reference Range Interpretation Comments WBC X 10x3 (test code = WBC X 10x3) 9.7 3.7-10.4 [facility] HospitalGqenbtvQZETKTDOJE4095-30-00 04:34:00 Test Item Value Reference Range Interpretation Comments RBC X 10x6 (test code = RBC X 10x6) 3.96 4.20-5.40 [facility] HospitalEbpcwliWQJJNPIWUC0588-11-31 04:34:00 Test Item Value Reference Range Interpretation Comments Hgb (test code = Hgb) 10.6 12.0-16.0 [facility] HospitalTffxhixRFVTQNHCKH1220-34-58 04:34:00 Test Item Value Reference Range Interpretation Comments Hct (test code = Hct) 32.6 36.0-48.0 [facility] HospitalKaciricZXFRURTHAG9219-62-98 04:34:00 Test Item Value Reference Range Interpretation Comments MCV (test code = MCV) 82.3 80.0-98.0 [facility] HospitalXnmcgdbVOPADJOMRG1473-97-92 04:34:00 Test Item Value Reference Range Interpretation Comments MCH (test code = MCH) 26.6 pg 27.0-31.0 [facility] HospitalWlseggjEZNSPFSKPD5677-32-72 04:34:00 Test Item Value Reference Range Interpretation Comments MCHC (test code = MCHC) 32.4 32.0-36.0 [facility] HospitalOnfcbcnABCOFZDOUT0132-48-60 04:34:00 Test Item Value Reference Range Interpretation Comments RDW (test code = RDW) 16.8 11.5-14.5 [place] [address]-12-06 04:34:00 Test Item Value Reference Range Interpretation Comments Platelet (test code = Platelet) 178 133-450 [facility] HospitalFkqqavxFGSEBFGEBO4730-34-74 04:34:00 Test Item Value Reference Range Interpretation Comments MPV (test code = MPV) 8.0 7.4-10.4 [facility] HospitalFicvxkqDQIMCNSPQU2026-85-36 04:34:00 Test Item Value Reference Range Interpretation Comments PT (test code = PT) 14.7 s 12.0-14.7 [place] 963420-12-06 04:34:00 Test Item Value Reference Range Interpretation Comments INR (test code = INR) 1.14 1 0.85-1.17 [place] [address]-12-06 04:34:00 Test Item Value Reference Range Interpretation Comments PTT (test code = PTT) 31.2 s 22.9-35.8 [place] 963420-12-06 04:34:00 Test Item Value Reference Range Interpretation Comments Segs (test code = Segs) 73.9 45.0-75.0 [place] 963420-12-06 04:34:00 Test Item Value Reference Range Interpretation Comments Lymphocytes (test code = Lymphocytes) 11.0 20.0-40.0 [place] [address]-12-06 04:34:00 Test Item Value Reference Range Interpretation Comments Monocytes (test code = Monocytes) 13.6 2.0-12.0 [place] [address]-12-06 04:34:00 Test Item Value Reference Range Interpretation Comments Eosinophils (test code = 0.7 See_Comment [A utomated message] The Eosinophils) system which ge nerated this result tra nsmitted reference range : <=4.0. The reference r christiano was not used to int erpret this result as normal/abnormal . [facility] HospitalWivulmpVKZSZPGXWA0562-86-24 04:34:00 Test Item Value Reference Range Interpretation Comments Basophils (test code = 0.8 See_Comment [Aut omated message] The Basophils) system which ge nerated this result tra nsmitted reference range : <=1.0. The reference r christiano was not used to int erpret this result as normal/abnormal . [place] 963420-12-06 04:34:00 Test Item Value Reference Range Interpretation Comments Neutrophils # (test code = Neutrophils 7.2 1.5-8.1 #) [place] [address]-12-06 04:34:00 Test Item Value Reference Range Interpretation Comments Lymphocytes # (test code = Lymphocytes 1.1 1.0-5.5 #) [place] 963420-12-06 04:34:00 Test Item Value Reference Range Interpretation Comments Monocytes # (test code 1.3 See_Comment [Aut omated message] The = Monocytes #) system which generated this result tra nsmitted reference range : <=0.8. The reference r christiano was not used to int erpret this result as normal/abnormal . [facility] CenterWodlvqlJECBYRJIWP7716-61-97 04:34:00 Test Item Value Reference Range Interpretation Comments Eosinophils # (test code 0.1 See_Comment [A utomated message] The = Eosinophils #) system whic h generated this result tra nsmitted reference range : <=0.5. The reference r christiano was not used to int erpret this result as normal/abnormal . [facility] HospitalEiqjluvEPSUEBSPBB8315-38-68 04:34:00 Test Item Value Reference Range Interpretation Comments Basophils # (test code 0.1 See_Comment [Aut omated message] The = Basophils #) system which generated this result tra nsmitted reference range : <=0.2. The reference r christiano was not used to int erpret this result as normal/abnormal . [facility] CenterCARD[facility]AC SDMKZVP0807-83-64 04:34:00 Test Item Value Reference Range Interpretation Comments Troponin-I (test code no gt See_Comment [Auto mated message] The = Troponin-I) system which g enerated this result transmit sheba reference range : <=0.40. The reference r christiano was not used to interpr et this result as edy l/abnormal. [facility] [id number] 04:34:00 Test Item Value Reference Range Interpretation Comments Glucose Lvl (test code = Glucose Lvl) 125 70-99 [facility] [id number] 04:34:00 Test Item Value Reference Range Interpretation Comments BUN (test code = BUN) 17 7-22 [facility] [id number] 04:34:00 Test Item Value Reference Range Interpretation Comments Creatinine Lvl (test code = Creatinine 1.51 0.50-1.40 Lvl) [facility] ZYQOY7971-03-15 04:34:00 Test Item Value Reference Range Interpretation Comments Sodium Lvl (test code = Sodium Lvl) 142 135-145 [facility] [id number] 04:34:00 Test Item Value Reference Range Interpretation Comments Potassium Lvl (test code = Potassium 4.0 3.5-5.1 Lvl) [place] 457350-12-06 04:34:00 Test Item Value Reference Range Interpretation Comments Chloride Lvl (test code = Chloride Lvl) 108 95-109 [place] 457350-12-06 04:34:00 Test Item Value Reference Range Interpretation Comments CO2 (test code = CO2) 30 24-32 [place] 457350-12-06 04:34:00 Test Item Value Reference Range Interpretation Comments Calcium Lvl (test code = Calcium Lvl) 7.8 8.5-10.5 [place] 457350-12-06 04:34:00 Test Item Value Reference Range Interpretation Comments AGAP (test code = AGAP) 8.0 10.0-20.0 [place] 457350-12-06 04:34:00 Test Item Value Reference Range Interpretation Comments eGFR (test code = eGFR) 33 [place] 963420-12-06 04:34:00 Test Item Value Reference Range Interpretation Comments WBC X 10x3 (test code = WBC X 10x3) 9.7 3.7-10.4 [place] 963420-12-06 04:34:00 Test Item Value Reference Range Interpretation Comments RBC X 10x6 (test code = RBC X 10x6) 3.96 4.20-5.40 [place] 963420-12-06 04:34:00 Test Item Value Reference Range Interpretation Comments Hgb (test code = Hgb) 10.6 12.0-16.0 [place] [address]-12-06 04:34:00 Test Item Value Reference Range Interpretation Comments Hct (test code = Hct) 32.6 36.0-48.0 [place] 963420-12-06 04:34:00 Test Item Value Reference Range Interpretation Comments MCV (test code = MCV) 82.3 80.0-98.0 [place] [address]-12-06 04:34:00 Test Item Value Reference Range Interpretation Comments MCH (test code = MCH) 26.6 pg 27.0-31.0 [place] [address]-12-06 04:34:00 Test Item Value Reference Range Interpretation Comments MCHC (test code = MCHC) 32.4 32.0-36.0 [place] 963420-12-06 04:34:00 Test Item Value Reference Range Interpretation Comments RDW (test code = RDW) 16.8 11.5-14.5 [place] [address]-12-06 04:34:00 Test Item Value Reference Range Interpretation Comments Platelet (test code = Platelet) 178 133-450 [place] [address]-12-06 04:34:00 Test Item Value Reference Range Interpretation Comments MPV (test code = MPV) 8.0 7.4-10.4 [place] 963420-12-06 04:34:00 Test Item Value Reference Range Interpretation Comments PT (test code = PT) 14.7 s 12.0-14.7 [place] [address]-12-06 04:34:00 Test Item Value Reference Range Interpretation Comments INR (test code = INR) 1.14 1 0.85-1.17 [place] [address]-12-06 04:34:00 Test Item Value Reference Range Interpretation Comments PTT (test code = PTT) 31.2 s 22.9-35.8 [place] [address]-12-06 04:34:00 Test Item Value Reference Range Interpretation Comments Segs (test code = Segs) 73.9 45.0-75.0 [place] 963420-12-06 04:34:00 Test Item Value Reference Range Interpretation Comments Lymphocytes (test code = Lymphocytes) 11.0 20.0-40.0 [place] [address]-12-06 04:34:00 Test Item Value Reference Range Interpretation Comments Monocytes (test code = Monocytes) 13.6 2.0-12.0 [place] [address]-12-06 04:34:00 Test Item Value Reference Range Interpretation Comments Eosinophils (test code = 0.7 See_Comment [A utomated message] The Eosinophils) system which ge nerated this result tra nsmitted reference range : <=4.0. The reference r christiano was not used to int erpret this result as normal/abnormal . [place] [address]-12-06 04:34:00 Test Item Value Reference Range Interpretation Comments Basophils (test code = 0.8 See_Comment [Aut omated message] The Basophils) system which ge nerated this result tra nsmitted reference range : <=1.0. The reference r christiano was not used to int erpret this result as normal/abnormal . [facility] CenterFpitaegXFMLTMQHQJ1637-37-84 04:34:00 Test Item Value Reference Range Interpretation Comments Neutrophils # (test code = Neutrophils 7.2 1.5-8.1 #) [facility]QqapnlxTPAQIAZAMX0610-51-66 04:34:00 Test Item Value Reference Range Interpretation Comments Lymphocytes # (test code = Lymphocytes 1.1 1.0-5.5 #) [facility] HospitalLspgdkuYFZSRCEMNP6392-13-30 04:34:00 Test Item Value Reference Range Interpretation Comments Monocytes # (test code 1.3 See_Comment [Aut omated message] The = Monocytes #) system which generated this result tra nsmitted reference range : <=0.8. The reference r christiano was not used to int erpret this result as normal/abnormal . [facility] HospitalStqnvheBJYMMPMCSS6381-60-54 04:34:00 Test Item Value Reference Range Interpretation Comments Eosinophils # (test code 0.1 See_Comment [A utomated message] The = Eosinophils #) system whic h generated this result tra nsmitted reference range : <=0.5. The reference r christiano was not used to int erpret this result as normal/abnormal . [facility] HospitalNrwjggvFDUWYOQSUQ3123-58-58 04:34:00 Test Item Value Reference Range Interpretation Comments Basophils # (test code 0.1 See_Comment [Aut omated message] The = Basophils #) system which generated this result tra nsmitted reference range : <=0.2. The reference r christiano was not used to int erpret this result as normal/abnormal . [facility] CenterC[facility]AC YHSEYQM1355-45-11 04:34:00 Test Item Value Reference Range Interpretation Comments Troponin-I (test code no gt See_Comment [Auto mated message] The = Troponin-I) system which g enerated this result transmit [place]ba reference range : <=0.40. The reference r christiano was not used to interpr et this result as edy l/abnormal. [facility] [id number] 04:34:00 Test Item Value Reference Range Interpretation Comments Glucose Lvl (test code = Glucose Lvl) 125 70-99 [facility] [id number] 04:34:00 Test Item Value Reference Range Interpretation Comments BUN (test code = BUN) 17 7-22 [place] 457350-12-06 04:34:00 Test Item Value Reference Range Interpretation Comments Creatinine Lvl (test code = Creatinine 1.51 0.50-1.40 Lvl) [place] 457350-12-06 04:34:00 Test Item Value Reference Range Interpretation Comments Sodium Lvl (test code = Sodium Lvl) 142 135-145 [place] 457350-12-06 04:34:00 Test Item Value Reference Range Interpretation Comments Potassium Lvl (test code = Potassium 4.0 3.5-5.1 Lvl) [place] 457350-12-06 04:34:00 Test Item Value Reference Range Interpretation Comments Chloride Lvl (test code = Chloride Lvl) 108 95-109 [place] 457350-12-06 04:34:00 Test Item Value Reference Range Interpretation Comments CO2 (test code = CO2) 30 24-32 [place] 457350-12-06 04:34:00 Test Item Value Reference Range Interpretation Comments Calcium Lvl (test code = Calcium Lvl) 7.8 8.5-10.5 [place] 457350-12-06 04:34:00 Test Item Value Reference Range Interpretation Comments AGAP (test code = AGAP) 8.0 10.0-20.0 [place] 457350-12-06 04:34:00 Test Item Value Reference Range Interpretation Comments eGFR (test code = eGFR) 33 [place] [address]-12-06 04:34:00 Test Item Value Reference Range Interpretation Comments WBC X 10x3 (test code = WBC X 10x3) 9.7 3.7-10.4 [place] 963420-12-06 04:34:00 Test Item Value Reference Range Interpretation Comments RBC X 10x6 (test code = RBC X 10x6) 3.96 4.20-5.40 [place] 963420-12-06 04:34:00 Test Item Value Reference Range Interpretation Comments Hgb (test code = Hgb) 10.6 12.0-16.0 [place] [address]-12-06 04:34:00 Test Item Value Reference Range Interpretation Comments Hct (test code = Hct) 32.6 36.0-48.0 [place] 963420-12-06 04:34:00 Test Item Value Reference Range Interpretation Comments MCV (test code = MCV) 82.3 80.0-98.0 [place] 963420-12-06 04:34:00 Test Item Value Reference Range Interpretation Comments MCH (test code = MCH) 26.6 pg 27.0-31.0 [place] 963420-12-06 04:34:00 Test Item Value Reference Range Interpretation Comments MCHC (test code = MCHC) 32.4 32.0-36.0 [place] 963420-12-06 04:34:00 Test Item Value Reference Range Interpretation Comments RDW (test code = RDW) 16.8 11.5-14.5 [place] 963420-12-06 04:34:00 Test Item Value Reference Range Interpretation Comments Platelet (test code = Platelet) 178 133-450 [facility]CfmkrsfASTBFFTJYZ9685-87-57 04:34:00 Test Item Value Reference Range Interpretation Comments MPV (test code = MPV) 8.0 7.4-10.4 [facility] HospitalHiwtserUGUCJMDOVC4936-72-41 04:34:00 Test Item Value Reference Range Interpretation Comments PT (test code = PT) 14.7 s 12.0-14.7 [place] 963420-12-06 04:34:00 Test Item Value Reference Range Interpretation Comments INR (test code = INR) 1.14 1 0.85-1.17 [place] 963420-12-06 04:34:00 Test Item Value Reference Range Interpretation Comments PTT (test code = PTT) 31.2 s 22.9-35.8 [place] 963420-12-06 04:34:00 Test Item Value Reference Range Interpretation Comments Segs (test code = Segs) 73.9 45.0-75.0 [place] 963420-12-06 04:34:00 Test Item Value Reference Range Interpretation Comments Lymphocytes (test code = Lymphocytes) 11.0 20.0-40.0 [place] 963420-12-06 04:34:00 Test Item Value Reference Range Interpretation Comments Monocytes (test code = Monocytes) 13.6 2.0-12.0 [place] 963420-12-06 04:34:00 Test Item Value Reference Range Interpretation Comments Eosinophils (test code = 0.7 See_Comment [A utomated message] The Eosinophils) system which ge nerated this result tra nsmitted reference range : <=4.0. The reference r christiano was not used to int erpret this result as normal/abnormal . [facility] HospitalLsmdjyiLDOZVSXCHC4955-06-71 04:34:00 Test Item Value Reference Range Interpretation Comments Basophils (test code = 0.8 See_Comment [Aut omated message] The Basophils) system which ge nerated this result tra nsmitted reference range : <=1.0. The reference r christiano was not used to int erpret this result as normal/abnormal . [facility] HospitalHodgoslVAZXQOLKTU9186-53-41 04:34:00 Test Item Value Reference Range Interpretation Comments Neutrophils # (test code = Neutrophils 7.2 1.5-8.1 #) [facility] HospitalQdxbtenGMBJJMUYFP0797-42-76 04:34:00 Test Item Value Reference Range Interpretation Comments Lymphocytes # (test code = Lymphocytes 1.1 1.0-5.5 #) [facility] HospitalGktmckqLIILMKWJMD7043-77-28 04:34:00 Test Item Value Reference Range Interpretation Comments Monocytes # (test code 1.3 See_Comment [Aut omated message] The = Monocytes #) system which generated this result tra nsmitted reference range : <=0.8. The reference r christiano was not used to int erpret this result as normal/abnormal . [facility] HospitalJfodwlsBTXBWVRQGQ3962-30-41 04:34:00 Test Item Value Reference Range Interpretation Comments Eosinophils # (test code 0.1 See_Comment [A utomated message] The = Eosinophils #) system [facility] h generated this result tra nsmitted reference range : <=0.5. The reference r christiano was not used to int erpret this result as normal/abnormal . [facility] HospitalIdgvqlxSGEAFMJRTJ8857-87-45 04:34:00 Test Item Value Reference Range Interpretation Comments Basophils # (test code 0.1 See_Comment [Aut omated message] The = Basophils #) system which generated this result tra nsmitted reference range : <=0.2. The reference r christiano was not used to int erpret this result as normal/abnormal . [facility] CenterCARD[facility] [id number] 04:34:00 Test Item Value Reference Range Interpretation Comments Troponin-I (test code no gt See_Comment [Auto mated message] The = Troponin-I) system which g enerated this result transmit sheba reference range : <=0.40. The reference r christiano was not used to interpr et this result as edy l/abnormal. [facility]2020-12-06 04:34:00 Test Item Value Reference Range Interpretation Comments Glucose Lvl (test code = Glucose Lvl) 125 70-99 [place] 457350-12-06 04:34:00 Test Item Value Reference Range Interpretation Comments BUN (test code = BUN) 17 7-22 [place] [address]-12-06 04:34:00 Test Item Value Reference Range Interpretation Comments Creatinine Lvl (test code = Creatinine 1.51 0.50-1.40 Lvl) [place] 457350-12-06 04:34:00 Test Item Value Reference Range Interpretation Comments Sodium Lvl (test code = Sodium Lvl) 142 135-145 [place] 457350-12-06 04:34:00 Test Item Value Reference Range Interpretation Comments Potassium Lvl (test code = Potassium 4.0 3.5-5.1 Lvl) [place] 457350-12-06 04:34:00 Test Item Value Reference Range Interpretation Comments Chloride Lvl (test code = Chloride Lvl) 108 95-109 [place] 457350-12-06 04:34:00 Test Item Value Reference Range Interpretation Comments CO2 (test code = CO2) 30 24-32 [place] [address]-12-06 04:34:00 Test Item Value Reference Range Interpretation Comments Calcium Lvl (test code = Calcium Lvl) 7.8 8.5-10.5 [place] 457350-12-06 04:34:00 Test Item Value Reference Range Interpretation Comments AGAP (test code = AGAP) 8.0 10.0-20.0 [place] 457350-12-06 04:34:00 Test Item Value Reference Range Interpretation Comments eGFR (test code = eGFR) 33 [place] 963420-12-06 04:34:00 Test Item Value Reference Range Interpretation Comments WBC X 10x3 (test code = WBC X 10x3) 9.7 3.7-10.4 [place] 963420-12-06 04:34:00 Test Item Value Reference Range Interpretation Comments RBC X 10x6 (test code = RBC X 10x6) 3.96 4.20-5.40 [facility] HospitalNfwbriqCXLJJLHOCD9890-30-78 04:34:00 Test Item Value Reference Range Interpretation Comments Hgb (test code = Hgb) 10.6 12.0-16.0 [facility] HospitalPaxdgemCSTZLBMDWE3320-57-65 04:34:00 Test Item Value Reference Range Interpretation Comments Hct (test code = Hct) 32.6 36.0-48.0 [facility] HospitalXryndynTELNRZVKCA3008-27-44 04:34:00 Test Item Value Reference Range Interpretation Comments MCV (test code = MCV) 82.3 80.0-98.0 [facility] HospitalFejurjuQFRSDUBEDV7305-44-24 04:34:00 Test Item Value Reference Range Interpretation Comments MCH (test code = MCH) 26.6 pg 27.0-31.0 [facility] HospitalKuxpxovUZVCAMTLST8661-91-33 04:34:00 Test Item Value Reference Range Interpretation Comments MCHC (test code = MCHC) 32.4 32.0-36.0 [facility] HospitalMxmksrkKLEUHDTWUQ9323-47-89 04:34:00 Test Item Value Reference Range Interpretation Comments RDW (test code = RDW) 16.8 11.5-14.5 [facility] HospitalAwsqtylRHZXUDSQSC4682-66-29 04:34:00 Test Item Value Reference Range Interpretation Comments Platelet (test code = Platelet) 178 133-450 [facility] HospitalUqursflIVARGJXOYH3461-24-78 04:34:00 Test Item Value Reference Range Interpretation Comments MPV (test code = MPV) 8.0 7.4-10.4 [facility] HospitalYhnmnhrLZTJYXCEOO6530-32-85 04:34:00 Test Item Value Reference Range Interpretation Comments PT (test code = PT) 14.7 s 12.0-14.7 [place] [address]-12-06 04:34:00 Test Item Value Reference Range Interpretation Comments INR (test code = INR) 1.14 1 0.85-1.17 [place] 963420-12-06 04:34:00 Test Item Value Reference Range Interpretation Comments PTT (test code = PTT) 31.2 s 22.9-35.8 [place] 963420-12-06 04:34:00 Test Item Value Reference Range Interpretation Comments Segs (test code = Segs) 73.9 45.0-75.0 [facility] CenterAtoxlzsTNXSSJHWVA6382-79-21 04:34:00 Test Item Value Reference Range Interpretation Comments Lymphocytes (test code = Lymphocytes) 11.0 20.0-40.0 [facility] CenterCARDIAC HHXFQQP0807-62-34 04:34:00 Test Item Value Reference Range Interpretation Comments Troponin-I (test code = Troponin-I) no gt <=0.40 [facility] [id number] 04:34:00 Test Item Value Reference Range Interpretation Comments Glucose Lvl (test code = Glucose Lvl) 125 70-99 [facility] [id number] 04:34:00 Test Item Value Reference Range Interpretation Comments BUN (test code = BUN) 17 7-22 [facility] [id number] 04:34:00 Test Item Value Reference Range Interpretation Comments Creatinine Lvl (test code = Creatinine 1.51 0.50-1.40 Lvl) [facility]ale[facility] [id number] 04:34:00 Test Item Value Reference Range Interpretation Comments Sodium Lvl (test code = Sodium Lvl) 142 135-145 [facility] [id number] 04:34:00 Test Item Value Reference Range Interpretation Comments Potassium Lvl (test code = Potassium 4.0 3.5-5.1 Lvl) [facility] [id number] 04:34:00 Test Item Value Reference Range Interpretation Comments Chloride Lvl (test code = Chloride Lvl) 108 95-109 [facility] [id number] 04:34:00 Test Item Value Reference Range Interpretation Comments CO2 (test code = CO2) 30 24-32 [facility] CenterSAMHI Hotels [id number] 04:34:00 Test Item Value Reference Range Interpretation Comments Calcium Lvl (test code = Calcium Lvl) 7.8 8.5-10.5 [facility]GvspjogJWBCOBMRKB3265-43-63 04:34:00 Test Item Value Reference Range Interpretation Comments Monocytes (test code = Monocytes) 13.6 2.0-12.0 [facility] CenterSAMHI Hotels [id number] 04:34:00 Test Item Value Reference Range Interpretation Comments AGAP (test code = AGAP) 8.0 10.0-20.0 [facility]2020-12-06 04:34:00 Test Item Value Reference Range Interpretation Comments eGFR (test code = eGFR) 33 [place] 963420-12-06 04:34:00 Test Item Value Reference Range Interpretation Comments WBC X 10x3 (test code = WBC X 10x3) 9.7 3.7-10.4 [facility] HospitalVhqdqceKVFRZBHNUM3196-15-23 04:34:00 Test Item Value Reference Range Interpretation Comments RBC X 10x6 (test code = RBC X 10x6) 3.96 4.20-5.40 [place] 963420-12-06 04:34:00 Test Item Value Reference Range Interpretation Comments Hgb (test code = Hgb) 10.6 12.0-16.0 [place] 963420-12-06 04:34:00 Test Item Value Reference Range Interpretation Comments Hct (test code = Hct) 32.6 36.0-48.0 [facility] HospitalBaiegxlLSHYEBFMQE8141-48-32 04:34:00 Test Item Value Reference Range Interpretation Comments MCV (test code = MCV) 82.3 80.0-98.0 [place] 963420-12-06 04:34:00 Test Item Value Reference Range Interpretation Comments MCH (test code = MCH) 26.6 pg 27.0-31.0 [facility] HospitalZbymtlsTMHUITXADD7967-16-30 04:34:00 Test Item Value Reference Range Interpretation Comments MCHC (test code = MCHC) 32.4 32.0-36.0 [facility] HospitalLlzrpgeLBIWGRMMDM1247-17-55 04:34:00 Test Item Value Reference Range Interpretation Comments RDW (test code = RDW) 16.8 11.5-14.5 [place] 963420-12-06 04:34:00 Test Item Value Reference Range Interpretation Comments Eosinophils (test code = 0.7 See_Comment [A utomated message] The Eosinophils) system which ge nerated this result tra nsmitted reference range : <=4.0. The reference r christiano was not used to int erpret this result as normal/abnormal . [facility] HospitalGauabnzJGIJWOSZIP4228-98-47 04:34:00 Test Item Value Reference Range Interpretation Comments Platelet (test code = Platelet) 178 133-450 [place] 963420-12-06 04:34:00 Test Item Value Reference Range Interpretation Comments MPV (test code = MPV) 8.0 7.4-10.4 [place] 963420-12-06 04:34:00 Test Item Value Reference Range Interpretation Comments PT (test code = PT) 14.7 s 12.0-14.7 [place] [address]-12-06 04:34:00 Test Item Value Reference Range Interpretation Comments INR (test code = INR) 1.14 1 0.85-1.17 [place] 963420-12-06 04:34:00 Test Item Value Reference Range Interpretation Comments PTT (test code = PTT) 31.2 s 22.9-35.8 [place] 963420-12-06 04:34:00 Test Item Value Reference Range Interpretation Comments Segs (test code = Segs) 73.9 45.0-75.0 [place] 963420-12-06 04:34:00 Test Item Value Reference Range Interpretation Comments Lymphocytes (test code = Lymphocytes) 11.0 20.0-40.0 [place] 963420-12-06 04:34:00 Test Item Value Reference Range Interpretation Comments Monocytes (test code = Monocytes) 13.6 2.0-12.0 [facility] HospitalNmlghzlBELPGOZZNJ8158-80-06 04:34:00 Test Item Value Reference Range Interpretation Comments Eosinophils (test code = Eosinophils) 0.7 <=4.0 [place] 963420-12-06 04:34:00 Test Item Value Reference Range Interpretation Comments Basophils (test code = Basophils) 0.8 <=1.0 [place] [address]-12-06 04:34:00 Test Item Value Reference Range Interpretation Comments Basophils (test code = 0.8 See_Comment [Aut omated message] The Basophils) system which ge nerated this result tra nsmitted reference range : <=1.0. The reference r christiano was not used to int erpret this result as normal/abnormal . [facility] HospitalXgncubyXAKHVDUTIS2103-78-55 04:34:00 Test Item Value Reference Range Interpretation Comments Neutrophils # (test code = Neutrophils 7.2 1.5-8.1 #) [place] 963420-12-06 04:34:00 Test Item Value Reference Range Interpretation Comments Lymphocytes # (test code = Lymphocytes 1.1 1.0-5.5 #) [facility] HospitalWjkvmlyRKVSTMSJWC0378-83-73 04:34:00 Test Item Value Reference Range Interpretation Comments Monocytes # (test code = Monocytes #) 1.3 <=0.8 [facility] HospitalCivtvrpESROVBWUSB0696-42-81 04:34:00 Test Item Value Reference Range Interpretation Comments Eosinophils # (test code = Eosinophils 0.1 <=0.5 #) [facility] HospitalCroezsnMINVECWJAO9227-61-75 04:34:00 Test Item Value Reference Range Interpretation Comments Basophils # (test code = Basophils #) 0.1 <=0.2 [facility] HospitalApatrrxOXTQRASIFP0122-08-27 04:34:00 Test Item Value Reference Range Interpretation Comments Neutrophils # (test code = Neutrophils 7.2 1.5-8.1 #) [facility] HospitalWuxljovKSHMBXHQIC8125-21-79 04:34:00 Test Item Value Reference Range Interpretation Comments Lymphocytes # (test code = Lymphocytes 1.1 1.0-5.5 #) [facility] HospitalRktikwxGYQPIVTPBZ9496-53-38 04:34:00 Test Item Value Reference Range Interpretation Comments Monocytes # (test code 1.3 See_Comment [Aut omated message] The = Monocytes #) system which generated this result tra nsmitted reference range : <=0.8. The reference r christiano was not used to int erpret this result as normal/abnormal . [facility] HospitalObaqyzoKBNCYMZFGR0835-53-80 04:34:00 Test Item Value Reference Range Interpretation Comments Eosinophils # (test code 0.1 See_Comment [A utomated message] The = Eosinophils #) system whic h generated this result tra nsmitted reference range : <=0.5. The reference r christiano was not used to int erpret this result as normal/abnormal . [facility] HospitalOhviowaVJPZQUICFV8279-93-36 04:34:00 Test Item Value Reference Range Interpretation Comments Basophils # (test code 0.1 See_Comment [Aut omated message] The = Basophils #) system which generated this result tra nsmitted reference range : <=0.2. The reference r christiano was not used to int erpret this result as normal/abnormal . [facility] HospitalDICOREWE[facility] HOSPITALKMHZWLK5687-55-86 04:34:00 Test Item Value Reference Range Interpretation Comments Troponin-I (test code no gt See_Comment [Auto mated message] The = Troponin-I) system which g enerated this result transmit [place] reference range : <=0.40. The reference r christiano was not used to interpr et this result as edy l/abnormal. [place] 457350-12-06 04:34:00 Test Item Value Reference Range Interpretation Comments Glucose Lvl (test code = Glucose Lvl) 125 70-99 [place] 457350-12-06 04:34:00 Test Item Value Reference Range Interpretation Comments BUN (test code = BUN) 17 7-22 [place] [address]-12-06 04:34:00 Test Item Value Reference Range Interpretation Comments Creatinine Lvl (test code = Creatinine 1.51 0.50-1.40 Lvl) [place] 457350-12-06 04:34:00 Test Item Value Reference Range Interpretation Comments Sodium Lvl (test code = Sodium Lvl) 142 135-145 [place] [address]-12-06 04:34:00 Test Item Value Reference Range Interpretation Comments Potassium Lvl (test code = Potassium 4.0 3.5-5.1 Lvl) [place] 457350-12-06 04:34:00 Test Item Value Reference Range Interpretation Comments Chloride Lvl (test code = Chloride Lvl) 108 95-109 [place] 457350-12-06 04:34:00 Test Item Value Reference Range Interpretation Comments CO2 (test code = CO2) 30 24-32 [place] 457350-12-06 04:34:00 Test Item Value Reference Range Interpretation Comments Calcium Lvl (test code = Calcium Lvl) 7.8 8.5-10.5 [place] 457350-12-06 04:34:00 Test Item Value Reference Range Interpretation Comments AGAP (test code = AGAP) 8.0 10.0-20.0 [place] 457350-12-06 04:34:00 Test Item Value Reference Range Interpretation Comments eGFR (test code = eGFR) 33 [place] [address]-12-06 04:34:00 Test Item Value Reference Range Interpretation Comments WBC X 10x3 (test code = WBC X 10x3) 9.7 3.7-10.4 [place] [address]-12-06 04:34:00 Test Item Value Reference Range Interpretation Comments RBC X 10x6 (test code = RBC X 10x6) 3.96 4.20-5.40 [facility] HospitalJjdllllPTGWPXCZSW1515-19-06 04:34:00 Test Item Value Reference Range Interpretation Comments Hgb (test code = Hgb) 10.6 12.0-16.0 [place] 963420-12-06 04:34:00 Test Item Value Reference Range Interpretation Comments Hct (test code = Hct) 32.6 36.0-48.0 [facility] HospitalDpsvuzuBAMRVXZGKZ2947-98-33 04:34:00 Test Item Value Reference Range Interpretation Comments MCV (test code = MCV) 82.3 80.0-98.0 [place] 963420-12-06 04:34:00 Test Item Value Reference Range Interpretation Comments MCH (test code = MCH) 26.6 pg 27.0-31.0 [facility] HospitalTvmoazoCENWUSOXDG1576-25-93 04:34:00 Test Item Value Reference Range Interpretation Comments MCHC (test code = MCHC) 32.4 32.0-36.0 [facility] HospitalNdysdrmMEIHEFBPNX8178-83-91 04:34:00 Test Item Value Reference Range Interpretation Comments RDW (test code = RDW) 16.8 11.5-14.5 [facility] HospitalJdhgjxcJMLYBTUTDQ6129-69-80 04:34:00 Test Item Value Reference Range Interpretation Comments Platelet (test code = Platelet) 178 133-450 [facility] HospitalWnjvzrqIZFAAPCNER2326-73-09 04:34:00 Test Item Value Reference Range Interpretation Comments MPV (test code = MPV) 8.0 7.4-10.4 [place] 963420-12-06 04:34:00 Test Item Value Reference Range Interpretation Comments PT (test code = PT) 14.7 s 12.0-14.7 [place] [address]-12-06 04:34:00 Test Item Value Reference Range Interpretation Comments INR (test code = INR) 1.14 1 0.85-1.17 [place] 963420-12-06 04:34:00 Test Item Value Reference Range Interpretation Comments PTT (test code = PTT) 31.2 s 22.9-35.8 [place] 963420-12-06 04:34:00 Test Item Value Reference Range Interpretation Comments Segs (test code = Segs) 73.9 45.0-75.0 [place] 963420-12-06 04:34:00 Test Item Value Reference Range Interpretation Comments Lymphocytes (test code = Lymphocytes) 11.0 20.0-40.0 [place] 963420-12-06 04:34:00 Test Item Value Reference Range Interpretation Comments Monocytes (test code = Monocytes) 13.6 2.0-12.0 [place] 963420-12-06 04:34:00 Test Item Value Reference Range Interpretation Comments Eosinophils (test code = 0.7 See_Comment [A utomated message] The Eosinophils) system which ge nerated this result tra nsmitted reference range : <=4.0. The reference r christiano was not used to int erpret this result as normal/abnormal . [place] [address]-12-06 04:34:00 Test Item Value Reference Range Interpretation Comments Basophils (test code = 0.8 See_Comment [Aut omated message] The Basophils) system which ge nerated this result tra nsmitted reference range : <=1.0. The reference r christiano was not used to int erpret this result as normal/abnormal . [facility] HospitalPkwnhaeLCXHFJYEII5432-59-88 04:34:00 Test Item Value Reference Range Interpretation Comments Neutrophils # (test code = Neutrophils 7.2 1.5-8.1 #) [place] 963420-12-06 04:34:00 Test Item Value Reference Range Interpretation Comments Lymphocytes # (test code = Lymphocytes 1.1 1.0-5.5 #) [place] 963420-12-06 04:34:00 Test Item Value Reference Range Interpretation Comments Monocytes # (test code 1.3 See_Comment [Aut omated message] The = Monocytes #) system which generated this result tra nsmitted reference range : <=0.8. The reference r christiano was not used to int erpret this result as normal/abnormal . [place] 963420-12-06 04:34:00 Test Item Value Reference Range Interpretation Comments Eosinophils # (test code 0.1 See_Comment [A utomated message] The = Eosinophils #) system ic h generated this result tra nsmitted reference range : <=0.5. The reference r christiano was not used to int erpret this result as normal/abnormal . [facility] CenterBengpuiPGEZGEIAKO2777-35-46 04:34:00 Test Item Value Reference Range Interpretation Comments Basophils # (test code 0.1 See_Comment [Aut omated message] The = Basophils #) system which generated this result tra nsmitted reference range : <=0.2. The reference r christiano was not used to int erpret this result as normal/abnormal . [facility] CenterCARDIAC FUPDCPY3991-40-74 04:34:00 Test Item Value Reference Range Interpretation Comments Troponin-I (test code = Troponin-I) no gt <=0.40 [facility] [id number] 04:34:00 Test Item Value Reference Range Interpretation Comments Glucose Lvl (test code = Glucose Lvl) 125 70-99 [facility] [id number] 04:34:00 Test Item Value Reference Range Interpretation Comments BUN (test code = BUN) 17 7-22 [facility] [id number] 04:34:00 Test Item Value Reference Range Interpretation Comments Creatinine Lvl (test code = Creatinine 1.51 0.50-1.40 Lvl) [facility] [id number] 04:34:00 Test Item Value Reference Range Interpretation Comments Sodium Lvl (test code = Sodium Lvl) 142 135-145 [facility] [id number] 04:34:00 Test Item Value Reference Range Interpretation Comments Potassium Lvl (test code = Potassium 4.0 3.5-5.1 Lvl) [facility] [id number] 04:34:00 Test Item Value Reference Range Interpretation Comments Chloride Lvl (test code = Chloride Lvl) 108 95-109 [facility] [id number] 04:34:00 Test Item Value Reference Range Interpretation Comments CO2 (test code = CO2) 30 24-32 [facility] [id number] 04:34:00 Test Item Value Reference Range Interpretation Comments Calcium Lvl (test code = Calcium Lvl) 7.8 8.5-10.5 [facility] [id number] 04:34:00 Test Item Value Reference Range Interpretation Comments AGAP (test code = AGAP) 8.0 10.0-20.0 [facility] [id number] 04:34:00 Test Item Value Reference Range Interpretation Comments eGFR (test code = eGFR) 33 [facility]fEKEXPRPCST3955-16-93 04:34:00 Test Item Value Reference Range Interpretation Comments WBC X 10x3 (test code = WBC X 10x3) 9.7 3.7-10.4 [place] 963420-12-06 04:34:00 Test Item Value Reference Range Interpretation Comments RBC X 10x6 (test code = RBC X 10x6) 3.96 4.20-5.40 [place] 963420-12-06 04:34:00 Test Item Value Reference Range Interpretation Comments Hgb (test code = Hgb) 10.6 12.0-16.0 [place] [address]-12-06 04:34:00 Test Item Value Reference Range Interpretation Comments Hct (test code = Hct) 32.6 36.0-48.0 [place] 963420-12-06 04:34:00 Test Item Value Reference Range Interpretation Comments MCV (test code = MCV) 82.3 80.0-98.0 [place] 963420-12-06 04:34:00 Test Item Value Reference Range Interpretation Comments MCH (test code = MCH) 26.6 pg 27.0-31.0 [place] 963420-12-06 04:34:00 Test Item Value Reference Range Interpretation Comments MCHC (test code = MCHC) 32.4 32.0-36.0 [place] 963420-12-06 04:34:00 Test Item Value Reference Range Interpretation Comments RDW (test code = RDW) 16.8 11.5-14.5 [place] 963420-12-06 04:34:00 Test Item Value Reference Range Interpretation Comments Platelet (test code = Platelet) 178 133-450 [facility] HospitalNtsmkorQQXENNPWVI2447-90-51 04:34:00 Test Item Value Reference Range Interpretation Comments MPV (test code = MPV) 8.0 7.4-10.4 [place] 963420-12-06 04:34:00 Test Item Value Reference Range Interpretation Comments PT (test code = PT) 14.7 s 12.0-14.7 [place] 963420-12-06 04:34:00 Test Item Value Reference Range Interpretation Comments INR (test code = INR) 1.14 1 0.85-1.17 [facility] HospitalEvmjcoiBWMLDUNXOP7838-92-46 04:34:00 Test Item Value Reference Range Interpretation Comments PTT (test code = PTT) 31.2 s 22.9-35.8 [place] 963420-12-06 04:34:00 Test Item Value Reference Range Interpretation Comments Segs (test code = Segs) 73.9 45.0-75.0 [place] 963420-12-06 04:34:00 Test Item Value Reference Range Interpretation Comments Lymphocytes (test code = Lymphocytes) 11.0 20.0-40.0 [place] 963420-12-06 04:34:00 Test Item Value Reference Range Interpretation Comments Monocytes (test code = Monocytes) 13.6 2.0-12.0 [place] 963420-12-06 04:34:00 Test Item Value Reference Range Interpretation Comments Eosinophils (test code = Eosinophils) 0.7 <=4.0 [place] 963420-12-06 04:34:00 Test Item Value Reference Range Interpretation Comments Basophils (test code = Basophils) 0.8 <=1.0 [place] 963420-12-06 04:34:00 Test Item Value Reference Range Interpretation Comments Neutrophils # (test code = Neutrophils 7.2 1.5-8.1 #) [facility] HospitalMifosxhOJQTYZSYTU5905-10-70 04:34:00 Test Item Value Reference Range Interpretation Comments Lymphocytes # (test code = Lymphocytes 1.1 1.0-5.5 #) [facility] HospitalHrihxnnKNNFJFSLNC9523-35-43 04:34:00 Test Item Value Reference Range Interpretation Comments Monocytes # (test code = Monocytes #) 1.3 <=0.8 [place] 963420-12-06 04:34:00 Test Item Value Reference Range Interpretation Comments Eosinophils # (test code = Eosinophils 0.1 <=0.5 #) [place] [address]-12-06 04:34:00 Test Item Value Reference Range Interpretation Comments Basophils # (test code = Basophils #) 0.1 <=0.2 [facility] SHOULDER 2+ VW [id number] 17:54:27 Comminuted distal clavicle fracture. EXAM: XR SHOULDER 2+ VW RIGHT HISTORY: shoulder pain COMPARISON: None. FINDINGS: A comminuted fracture of the distal clavicle is seen. There is resultantmild widening of the acromioclavicular joint. Alignment is maintained atthe glenohumeral joint which exhibits osteoarthritic changes manifested byjoint space narrowing and osteophytosis. Osteopenia is suggested.At herosclerotic calcifications are present in the aortic arch. [facility] User - 06/28/2020 12:55 PM CDTEXAM:XR SHOULDER 2+ VW RIGHTHISTORY:shoulder pain COMPARISON:None.FINDINGS: A comminuted fracture of the distal clavicle is seen. There is resultantmild widening of the acromioclavicular joint. Alignment is maintained atthe glenohumeral joint which exhibits osteoarthritic changes manifested byjoint space narrowing and osteophytosis. Osteopenia is suggested.Atherosclerotic calcifications are present in the aortic arch.IMPRESSIONComminuted distal clavicle fracture. [facility] [id number] 17:53:09 No acute bony abnormality. EXAM: XR FOREARM 2 VW RIGHT HISTORY: right arm pain COMPARISON: None. FINDINGS: Osteopenia is noted. 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 Mild osteoarthritic changes are present at theelbow. No acute fracture or dislocation is seen. [facility] User - 06/28/2020 12:54 PM CDTEXAM:XR FOREARM 2 VW RIGHTHISTORY:right arm pain COMPARISON:None.FINDINGS: Osteopenia is noted. 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 Mild osteoarthritic changes are present at theelbow. No acute fracture or dislocation is seen.IMPRESSIONNo acute bony abnormality.[facility] Notes Date/Time Note Provider Source 2022-11-27 05:40:00 4984-45-00C74:40:00EXAM: MRI [facility] CERVICAL SPINE WITHOUT Center CONTRASTDATE: 11/27/2022INDICATION: - Rule out cervical spine [...] symptoms.4. Additional severe spinal canal narrowing at C6-7.01671-7Gujtliyslm ReportsLNDiagnostic ReportsTXTAVAvailable for patient careMHIEFoundation [facility]2023-02-27T09:09:00 2022-11-27 05:40:00 6038-79-00M73:40:00EXAM: MRI [facility] CERVICAL SPINE WITHOUT Center CONTRASTDATE: 11/27/2022INDICATION: - Rule out cervical spine [...] symptoms.4. Additional severe spinal canal narrowing at C6-7.20304-3Nlarqscurm ReportsLNDiagnostic ReportsTXTAVAvailable for patient rjyt65664-4Yvanfahqrm ReportsLNMHIEFoundation Surgical Hospital of [facility] [place]2023-02-27T09:09:00 2022-11-27 05:40:00 4720-61-91R70:40:00EXAM: MRI [facility] CERVICAL SPINE WITHOUT Center CONTRASTDATE: 11/27/2022INDICATION: - Rule out cervical spine [...] symptoms.4. Additional severe spinal canal narrowing at C6-7.23685-2Eeyhxxyjpg ReportsLNDiagnostic ReportsTXTAVAvailable for patient pepy47480-7Jvyvjklpav ReportsLNMHIEFoundation Surgical Hospital of [facility]2023-02-27T09:09:00 2022-11-27 05:40:00 5677-94-75R47:40:00EXAM: MRI [facility] CERVICAL SPINE WITHOUT Center CONTRASTDATE: 11/27/2022INDICATION: - Rule out cervical spine [...] symptoms.4. Additional severe spinal canal narrowing at C6-7.50493-4Chzgqnemoa ReportsLNDiagnostic ReportsTXTAVAvailable for patient icul49222-2Ukrsjyxdsl ReportsLNMHIEFoundation Surgical Hospital of [facility]2023-02-27T09:09:00 2022-11-27 01:29:43 6637-80-44F90:29:43EXAM: CT BRAIN [facility] WITHOUT CONTRASTDATE: Center 11/27/2022INDICATION: - pain post-trauma.COMPARISON: CT head November [...] telephone at 11/27/2022 2:31 by Urbano Ashton MDXU86026-8Bfftkfikbg ReportsLNDiagnostic ReportsTXTAVAvailable for patient careIEFoundation Surgical Hospital [facility]2023-02-27T05:39:00 2022-11-27 01:29:43 6061-67-14M42:29:43EXAM: CT BRAIN [facility] WITHOUT CONTRASTDATE: Center 11/27/2022INDICATION: - pain post-trauma.COMPARISON: CT head November [...] telephone at 11/27/2022 2:31 by Urbano Ashton MDSE44214-0Jxybfkqchn ReportsLNDiagnostic ReportsTXTAVAvailable for patient rctq82090-9Vrvdequuas ReportsLNMHIEFoundation Surgical [facility] of [facility]2023-02-27T05:39:00 2022-11-27 01:29:43 8752-57-98L82:29:43EXAM: CT BRAIN [facility] WITHOUT CONTRASTDATE: Center 11/27/2022INDICATION: - pain post-trauma.COMPARISON: CT head November [...] telephone at 11/27/2022 2:31 by Urbano Ashton MDVQ48116-3Alulocshuz ReportsLNDiagnostic ReportsTXTAVAvailable for patient ijkn68014-7Lkzenhvyms ReportsLNMHIEFoundation [facility]2023-02-27T05:39:00 2022-11-27 01:29:43 0862-61-35R78:29:43EXAM: CT BRAIN [facility] WITHOUT CONTRASTDATE: Center 11/27/2022INDICATION: - pain post-trauma.COMPARISON: CT head November [...] telephone at 11/27/2022 2:31 by Urbano Ashton MDEQ71116-6Eukrukyvcl ReportsLNDiagnostic ReportsTXTAVAvailable for patient naor18621-6Wptyuqvlnz ReportsLNMHIEFoundation [facility] [place]2023-02-27T05:39:00 2022-11-27 00:49:03 1365-26-31X74:49:03EXAM: CT [facility] CERVICAL SPINE WITHOUT Center CONTRASTDATE: 11/27/2022 0:49INDICATION: Status post fall, pain after trauma. Following trauma transfer for higher level of care request for outside film interpretation CT cervical spine without contrast performed [facility] None.TECHNIQUE: Volumetric CT of the cervical spine is acquired without contrast. Axial, coronal and sagittal images are provided. IV contrast: None.DLP: Refer to CT protocol formUT SECTION: ERFINDINGS: The spine is imaged from the skull base to the level of T2/T3.Uniform Designer: Noncontributory.Bones:There is generalized decreased bone mineral density.There [...] Vascular calcifications are present.6. Agree with outside report.27920-4Hhgoojrntk ReportsLNDiagnostic ReportsTXTAVAvailable for patient careIEFoundation Surgical Hospital [facility] [place]2023-02-27T01:46:00 2022-11-27 00:49:03 1497-51-94X86:49:03EXAM: CT [facility] CERVICAL SPINE WITHOUT Center CONTRASTDATE: 11/27/2022 0:49INDICATION: Status post fall, pain after trauma. Following trauma transfer for higher level of care request for outside film interpretation CT cervical spine without contrast performed 11/26/2022 [facility]: None.TECHNIQUE: Volumetric CT of the cervical spine is acquired without contrast. Axial, coronal and sagittal images are provided. IV contrast: None.DLP: Refer to CT protocol formUT SECTION: ERFINDINGS: The spine is imaged from the skull base to the level of T2/T3.Uniform Designer: Noncontributory.Bones:There is generalized decreased bone mineral density.There [...] Vascular calcifications are present.6. Agree with outside report.63654-8Boqiqhrbeu ReportsLNDiagnostic ReportsTXTAVAvailable for patient uudx27946-6Zqjunjeyek ReportsLNMHIEFoundation Surgical Hospital [facility] [place]2023-02-27T01:46:00 2022-11-27 00:49:03 5657-01-16C66:49:03EXAM: CT [facility] CERVICAL SPINE WITHOUT Center CONTRASTDATE: 11/27/2022 0:49INDICATION: Status post fall, pain after trauma. Following trauma transfer for higher level of care request for outside film interpretation CT cervical spine without contrast performed 11/26/2022 [facility]: None.TECHNIQUE: Volumetric CT of the cervical spine is acquired without contrast. Axial, coronal and sagittal images are provided. IV contrast: None.DLP: Refer to CT protocol formUT SECTION: ERFINDINGS: The spine is imaged from the skull base to the level of T2/T3.Uniform Designer: Noncontributory.Bones:There is generalized decreased bone mineral density.There [...] Vascular calcifications are present.6. Agree with outside report.[id number] ReportsLNDiagnostic ReportsTXTAVAvailable for patient mazf05454-7Cbuuudpgvf ReportsLNMHIEFoundation [facility] [place]2023-02-27T01:46:00 2022-11-27 00:49:03 1768-44-48N01:49:03EXAM: CT [facility] CERVICAL SPINE WITHOUT Center CONTRASTDATE: 11/27/2022 0:49INDICATION: Status post fall, pain after trauma. Following trauma transfer for higher level of care request for outside film interpretation CT cervical spine without contrast performed 11/26/2022 [facility]44 [facility]: None.TECHNIQUE: Volumetric CT of the cervical spine is acquired without contrast. Axial, coronal and sagittal images are provided. IV contrast: None.DLP: Refer to CT protocol formUT SECTION: ERFINDINGS: The spine is imaged from the skull base to the level of T2/T3.Uniform Designer: Noncontributory.Bones:There is generalized decreased bone mineral density.There [...] Vascular calcifications are present.6. Agree with outside report.61924-0Fejdgydwga ReportsLNDiagnostic ReportsTXTAVAvailable for patient infs53847-0Kxwzgocotz ReportsLNCuero Regional Hospital2023-02-27T01:46:00 2022-11-21 06:10:00 0621-45-25L52:10:00EXAM: XR RIGHT [facility] KNEE 3 VIEWS DATE: 11/21/[address] 6:10INDICATION: - Trauma after fallCOMPARISON: None.TECHNIQUE: 3 [...] arthroplasty and resurfacing of the patella.UT SECTION: [id number] ReportsLNDiagnostic ReportsTXTAVAvailable for patient careCuero Regional Hospital2023-02-21T06:41:00 2022-11-21 06:10:00 [id number]:10:00EXAM: XR RIGHT [facility] KNEE 3 VIEWS DATE: 11/21/[address] 6:10INDICATION: - Trauma after fallCOMPARISON: None.TECHNIQUE: 3 [...] arthroplasty and resurfacing of the patella.UT SECTION: [id number] ReportsLNDiagnostic ReportsTXTAVAvailable for patient eydt90664-4Slkhhzrcib ReportsLNCuero Regional Hospital2023-02-21T06:41:00 2022-11-21 06:10:00 5854-56-94Z84:10:00EXAM: XR RIGHT [facility] KNEE 3 VIEWS DATE: 11/21/[address] 6:10INDICATION: - Trauma after fallCOMPARISON: None.TECHNIQUE: 3 [...] arthroplasty and resurfacing of the patella.UT SECTION: [id number] ReportsLNDiagnostic ReportsTXTAVAvailable for patient uire95939-0Riugjlggnb ReportsLNCuero Regional Hospital2023-02-21T06:41:00 2022-11-21 06:10:00 [id number]:10:00EXAM: XR RIGHT [facility] KNEE 3 VIEWS DATE: 11/21/[address] 6:10INDICATION: - Trauma after fallCOMPARISON: None.TECHNIQUE: 3 [...] arthroplasty and resurfacing of the patella.UT SECTION: [id number] ReportsLNDiagnostic ReportsTXTAVAvailable for patient [id number] ReportsL[facility] Healthcare Center2023-02-21T06:41:00 2022-11-21 05:13:56 [id number]:13:56EXAM: CT BRAIN [facility] WITHOUT CONTRASTDATE: 11/21/2022 Center 5:16 AMINDICATION: - SAH stability scan.COMPARISON: Outside [...] layering along the tentorium. No significant midline shift.21244-7Agsnbybqbq ReportsLNDiagnostic ReportsTXTAVAvailable for patient careCuero Regional Hospital2023-02-21T12:26:00 2022-11-21 05:13:56 [id number]:13:56EXAM: CT BRAIN [facility] WITHOUT CONTRASTDATE: 11/21/2022 Center 5:16 AMINDICATION: - SAH stability scan.COMPARISON: Outside [...] layering along the tentorium. No significant midline shift.[id number] ReportsLNDiagnostic ReportsTXTAVAvailable for patient fnic57043-9Ilwgyyarao ReportsLNCuero Regional Hospital2023-02-21T12:26:00 2022-11-21 05:13:56 0842-38-00K79:13:56EXAM: CT BRAIN [facility] WITHOUT CONTRASTDATE: 11/21/2022 Center 5:16 AMINDICATION: - SAH stability scan.COMPARISON: Outside [...] layering along the tentorium. No significant midline shift.[id number] ReportsLNDiagnostic ReportsTXTAVAvailable for patient rklm75323-3Gooibmompt ReportsLNCuero Regional Hospital2023-02-21T12:26:00 2022-11-21 05:13:56 [id number]:13:56EXAM: CT BRAIN [facility] WITHOUT CONTRASTDATE: 11/21/2022 Center 5:16 AMINDICATION: - SAH stability scan.COMPARISON: Outside [...] layering along the tentorium. No significant midline shift.[id number] ReportsLNDiagnostic ReportsTXTAVAvailable for patient [id number] ReportsLNCuero Regional Hospital2023-02-21T12:26:00 2020-09-05 16:36:00 [id number]:36:00EXAM: MRI [facility] CERVICAL SPINE WITHOUT Center CONTRASTDATE: 09/05/2020 405 PM CSTINDICATION: 79 years old Female patient with given clinical indication of fall need better evaluation of spinal cord.COMPARISON: 09/05/2020 at 117AMTECHNIQUE: Multiplanar, multisequence noncontrast MR imaging of the cervical spine.FINDINGS:As compared to prior study from same date 09/05/2020 at 1:17 AM, no interval adverse change.No definite spinal cord signal abnormality to suggest spinal cord contusion or spinal cord compression.Small central disc protrusion indenting the ventral thecal sac at the level of C5-C6 causing moderate spinal canal narrowing with residual thecal sac measures 6 to 7 mm in AP dimension.Remainder of the findings have been stable from prior study.IMPRESSION:1. As compared to prior MRI of the cervical spine from same date 09/05/2020 at 1:17 AM, no interval adverse change.2. No definite spinal cord signal abnormality to suggest spinal cord contusion or spinal cord compression.3. Small central disc protrusion indenting the ventral thecal sac at the level of C5-C6 causing moderate spinal canal narrowing with residual thecal sac measures 6 to 7 mm in AP dimension.4. Remainder of the findings have been stable from prior study.[id number] ReportsLNDiagnostic ReportsTXTAVAvailable for patient careCuero Regional Hospital2020-12-06T21:54:00 2020-09-05 16:36:00 [id number]:36:00EXAM: MRI [facility] CERVICAL SPINE WITHOUT Center CONTRASTDATE: 09/05/2020 405 PM CSTINDICATION: 79 years old Female patient with given clinical indication of fall need better evaluation of spinal cord.COMPARISON: 09/05/2020 at 117AMTECHNIQUE: Multiplanar, multisequence noncontrast MR imaging of the cervical spine.FINDINGS:As compared to prior study from same date 09/05/2020 at 1:17 AM, no interval adverse change.No definite spinal cord signal abnormality to suggest spinal cord contusion or spinal cord compression.Small central disc protrusion indenting the ventral thecal sac at the level of C5-C6 causing moderate spinal canal narrowing with residual thecal sac measures 6 to 7 mm in AP dimension.Remainder of the findings have been stable from prior study.IMPRESSION:1. As compared to prior MRI of the cervical spine from same date 09/05/2020 at 1:17 AM, no interval adverse change.2. No definite spinal cord signal abnormality to suggest spinal cord contusion or spinal cord compression.3. Small central disc protrusion indenting the ventral thecal sac at the level of C5-C6 causing moderate spinal canal narrowing with residual thecal sac measures 6 to 7 mm in AP dimension.4. Remainder of the findings have been stable from prior study.[id number] ReportsLNDiagnostic ReportsTXTAVAvailable for patient mgfu50942-0Gwbtipnskh ReportsLNIEFoundation Surgical Hospital [facility]2020-12-06T21:54:00 2020-09-05 16:36:00 2861-45-63A65:36:00EXAM: MRI [facility] CERVICAL SPINE WITHOUT Center CONTRASTDATE: 09/05/2020 405 PM CSTINDICATION: 79 years old Female patient with given clinical indication of fall need better evaluation of spinal cord.COMPARISON: 09/05/2020 at 117AMTECHNIQUE: Multiplanar, multisequence noncontrast MR imaging of the cervical spine.FINDINGS:As compared to prior study from same date 09/05/2020 at 1:17 AM, no interval adverse change.No definite spinal cord signal abnormality to suggest spinal cord contusion or spinal cord compression.Small central disc protrusion indenting the ventral thecal sac at the level of C5-C6 causing moderate spinal canal narrowing with residual thecal sac measures 6 to 7 mm in AP dimension.Remainder of the findings have been stable from prior study.IMPRESSION:1. As compared to prior MRI of the cervical spine from same date 09/05/2020 at 1:17 AM, no interval adverse change.2. No definite spinal cord signal abnormality to suggest spinal cord contusion or spinal cord compression.3. Small central disc protrusion indenting the ventral thecal sac at the level of C5-C6 causing moderate spinal canal narrowing with residual thecal sac measures 6 to 7 mm in AP dimension.4. Remainder of the findings have been stable from prior study.[id number] ReportsLNDiagnostic ReportsTXTAVAvailable for patient prhk70204-6Rmtgarekbq ReportsLNCuero Regional Hospital2020-12-06T21:54:00 2020-09-05 16:36:00 [id number]:36:00EXAM: MRI [facility] CERVICAL SPINE WITHOUT Center CONTRASTDATE: 09/05/2020 405 PM CSTINDICATION: 79 years old Female patient with given clinical indication of fall need better evaluation of spinal cord.COMPARISON: 09/05/2020 at 117AMTECHNIQUE: Multiplanar, multisequence noncontrast MR imaging of the cervical spine.FINDINGS:As compared to prior study from same date 09/05/2020 at 1:17 AM, no interval adverse change.No definite spinal cord signal abnormality to suggest spinal cord contusion or spinal cord compression.Small central disc protrusion indenting the ventral thecal sac at the level of C5-C6 causing moderate spinal canal narrowing with residual thecal sac measures 6 to 7 mm in AP dimension.Remainder of the findings have been stable from prior study.IMPRESSION:1. As compared to prior MRI of the cervical spine from same date 09/05/2020 at 1:17 AM, no interval adverse change.2. No definite spinal cord signal abnormality to suggest spinal cord contusion or spinal cord compression.3. Small central disc protrusion indenting the ventral thecal sac at the level of C5-C6 causing moderate spinal canal narrowing with residual thecal sac measures 6 to 7 mm in AP dimension.4. Remainder of the findings have been stable from prior study.[id number] ReportsLNDiagnostic ReportsTXTAVAvailable for patient cnve97242-9Ysqfdgdzrz ReportsLNCuero Regional Hospital2020-12-06T21:54:00 2020-09-05 06:30:20 [id number]:30:20EXAM: CT CHEST [facility] WITH CONTRASTEXAM: CT ABDOMEN AND Center PELVIS WITH CONTRASTDATE: 09/05/2020 5:12 RECYCLE DRIVER INDICATION: - eval for T and L spine fx given C spine fx COMPARISON: NoneTECHNIQUE: Volumetric CT of the chest, abdomen and pelvis is acquired following intravenous administration of contrast. Axial, coronal and sagittal images are provided.IV contrast: 100 mL Omnipaque 350Oral contrast: None.DLP: 3034 mGy-cmUT SECTION: ERFINDINGS: Uniform Designer: Noncontributory.Lines and tubes: None.Lower Neck: Supraclavicular soft tissues are unremarkable.Thoracic Aorta and Mediastinum: No mediastinal hematoma or thoracic aortic injury. Ectasia of the ascending thoracic aorta to 3.4 cm. Coronary vessel calcifications are present. No acute cardiac or pericardial abnormality. Lungs, Pleura, Diaphragm: No pulmonary contusions. Scattered bilateral subsegmental atelectasis. No pleural effusion or pneumothorax. No diaphragmatic injury.Liver and biliary tree: Normal. No injury. Biliary dilatation as expected postcholecystectomy. Gallbladder: Surgically absent.Pancreas: Pancreas is atrophic and fatty replaced. No injury.Spleen: Normal. No injury.Adrenals: Normal. No injury.Kidneys and ureters: Moderate bilateral perinephric fat stranding is nonspecific. Numerous bilateral simple appearing fluid density renal cysts measuring up to 2.9 cm. No injury.Bladder: Normal. No injury.Reproductive organs: No injury.Gastrointestinal tract: Diverticulosis without diverticulitis. Otherwise normal. No bowel injury.Peritoneum and retroperitoneum: No fluid collections or free air.Lymph nodes: Normal.Vasculature: No vascular injury. 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 Severe aortic atherosclerosis.Spine/ Bones: No acute abnormality of the spine. No other bony injury. Severe multilevel degenerative changes of the thoracic and lumbar spine. Ankylosis at L1-2. Grade 1 L4-L5 anterolisthesis. Mild widening of the right facet joint at L1-L2 appears chronic, secondary to degenerative change and partial ankylosis at this level. Grade I anterolisthesis at T10 on T11 and facet arthropathy causes mild canal stenosis without associated cord impingement.Soft tissues: Mild bilateral subcutaneous flank edema.IMPRESSION: 1. No acute traumatic abnormality of the chest abdomen or pelvis.2. 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 Colonic diverticulosis without acute diverticulitis.[id number] ReportsLNDiagnostic ReportsTXTAVAvailable for patient careCuero Regional Hospital2020-12-06T08:01:00 2020-09-05 06:30:20 [id number]:30:20EXAM: CT CHEST [facility] WITH CONTRASTEXAM: CT ABDOMEN AND [place] PELVIS WITH CONTRASTDATE: 09/05/2020 5:12 RECYCLE DRIVER INDICATION: - eval for T and L spine fx given C spine fx COMPARISON: NoneTECHNIQUE: Volumetric CT of the chest, abdomen and pelvis is acquired following intravenous administration of contrast. Axial, coronal and sagittal images are provided.IV contrast: 100 mL Omnipaque 350Oral contrast: None.DLP: 3034 mGy-cmUT SECTION: ERFINDINGS: Uniform Designer: Noncontributory.Lines and tubes: None.Lower Neck: Supraclavicular soft tissues are unremarkable.Thoracic Aorta and Mediastinum: No mediastinal hematoma or thoracic aortic injury. Ectasia of the ascending thoracic aorta to 3.4 cm. Coronary vessel calcifications are present. No acute cardiac or pericardial abnormality. Lungs, Pleura, Diaphragm: No pulmonary contusions. Scattered bilateral subsegmental atelectasis. No pleural effusion or pneumothorax. No diaphragmatic injury.Liver and biliary tree: Normal. No injury. Biliary dilatation as expected postcholecystectomy. Gallbladder: Surgically absent.Pancreas: Pancreas is atrophic and fatty replaced. No injury.Spleen: Normal. No injury.Adrenals: Normal. No injury.Kidneys and ureters: Moderate bilateral perinephric fat stranding is nonspecific. Numerous bilateral simple appearing fluid density renal cysts measuring up to 2.9 cm. No injury.Bladder: Normal. No injury.Reproductive organs: No injury.Gastrointestinal tract: Diverticulosis without diverticulitis. Otherwise normal. No bowel injury.Peritoneum and retroperitoneum: No fluid collections or free air.Lymph nodes: Normal.Vasculature: No vascular injury. 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 Severe aortic atherosclerosis.Spine/ Bones: No acute abnormality of the spine. No other bony injury. Severe multilevel degenerative changes of the thoracic and lumbar spine. Ankylosis at L1-2. Grade 1 L4-L5 anterolisthesis. Mild widening of the right facet joint at L1-L2 appears chronic, secondary to degenerative change and partial ankylosis at this level. Grade I anterolisthesis at T10 on T11 and facet arthropathy causes mild canal stenosis without associated cord impingement.Soft tissues: Mild bilateral subcutaneous flank edema.IMPRESSION: 1. No acute traumatic abnormality of the chest abdomen or pelvis.2. 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 Colonic diverticulosis without acute diverticulitis.[id number] ReportsLNDiagnostic ReportsTXTAVAvailable for patient [id number] ReportsLNMHIEFoundation Surgical Hospital of [facility]2020-12-06T08:01:00 2020-09-05 06:30:20 [id number]:30:20EXAM: CT CHEST [facility] WITH CONTRASTEXAM: CT ABDOMEN AND Center PELVIS WITH CONTRASTDATE: 09/05/2020 5:12 RECYCLE DRIVER INDICATION: - eval for T and L spine fx given C spine fx COMPARISON: NoneTECHNIQUE: Volumetric CT of the chest, abdomen and pelvis is acquired following intravenous administration of contrast. Axial, coronal and sagittal images are provided.IV contrast: 100 mL Omnipaque 350Oral contrast: None.DLP: 3034 mGy-cmUT SECTION: ERFINDINGS: Uniform Designer: Noncontributory.Lines and tubes: None.Lower Neck: Supraclavicular soft tissues are unremarkable.Thoracic Aorta and Mediastinum: No mediastinal hematoma or thoracic aortic injury. Ectasia of the ascending thoracic aorta to 3.4 cm. Coronary vessel calcifications are present. No acute cardiac or pericardial abnormality. Lungs, Pleura, Diaphragm: No pulmonary contusions. Scattered bilateral subsegmental atelectasis. No pleural effusion or pneumothorax. No diaphragmatic injury.Liver and biliary tree: Normal. No injury. Biliary dilatation as expected postcholecystectomy. Gallbladder: Surgically absent.Pancreas: Pancreas is atrophic and fatty replaced. No injury.Spleen: Normal. No injury.Adrenals: Normal. No injury.Kidneys and ureters: Moderate bilateral perinephric fat stranding is nonspecific. Numerous bilateral simple appearing fluid density renal cysts measuring up to 2.9 cm. No injury.Bladder: Normal. No injury.Reproductive organs: No injury.Gastrointestinal tract: Diverticulosis without diverticulitis. Otherwise normal. No bowel injury.Peritoneum and retroperitoneum: No fluid collections or free air.Lymph nodes: Normal.Vasculature: No vascular injury. 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 Severe aortic atherosclerosis.Spine/ Bones: No acute abnormality of the spine. No other bony injury. Severe multilevel degenerative changes of the thoracic and lumbar spine. Ankylosis at L1-2. Grade 1 L4-L5 anterolisthesis. Mild widening of the right facet joint at L1-L2 appears chronic, secondary to degenerative change and partial ankylosis at this level. Grade I anterolisthesis at T10 on T11 and facet arthropathy causes mild canal stenosis without associated cord impingement.Soft tissues: Mild bilateral subcutaneous flank edema.IMPRESSION: 1. No acute traumatic abnormality of the chest abdomen or pelvis.2. 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 Colonic diverticulosis without acute diverticulitis.[id number] ReportsLNDiagnostic ReportsTXTAVAvailable for patient [id number] ReportsLNIEFoundation Surgical Hospital of [facility] [place]2020-12-06T08:01:00 2020-09-05 06:30:20 [id number]:30:20EXAM: CT CHEST [facility] WITH CONTRASTEXAM: CT ABDOMEN AND Center PELVIS WITH CONTRASTDATE: 09/05/2020 5:12 RECYCLE DRIVER INDICATION: - eval for T and L spine fx given C spine fx COMPARISON: NoneTECHNIQUE: Volumetric CT of the chest, abdomen and pelvis is acquired following intravenous administration of contrast. Axial, coronal and sagittal images are provided.IV contrast: 100 mL Omnipaque 350Oral contrast: None.DLP: 3034 mGy-cmUT SECTION: ERFINDINGS: Uniform Designer: Noncontributory.Lines and tubes: None.Lower Neck: Supraclavicular soft tissues are unremarkable.Thoracic Aorta and Mediastinum: No mediastinal hematoma or thoracic aortic injury. Ectasia of the ascending thoracic aorta to 3.4 cm. Coronary vessel calcifications are present. No acute cardiac or pericardial abnormality. Lungs, Pleura, Diaphragm: No pulmonary contusions. Scattered bilateral subsegmental atelectasis. No pleural effusion or pneumothorax. No diaphragmatic injury.Liver and biliary tree: Normal. No injury. Biliary dilatation as expected postcholecystectomy. Gallbladder: Surgically absent.Pancreas: Pancreas is atrophic and fatty replaced. No injury.Spleen: Normal. No injury.Adrenals: Normal. No injury.Kidneys and ureters: Moderate bilateral perinephric fat stranding is nonspecific. Numerous bilateral simple appearing fluid density renal cysts measuring up to 2.9 cm. No injury.Bladder: Normal. No injury.Reproductive organs: No injury.Gastrointestinal tract: Diverticulosis without diverticulitis. Otherwise normal. No bowel injury.Peritoneum and retroperitoneum: No fluid collections or free air.Lymph nodes: Normal.Vasculature: No vascular injury. 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 Severe aortic atherosclerosis.Spine/ Bones: No acute abnormality of the spine. No other bony injury. Severe multilevel degenerative changes of the thoracic and lumbar spine. Ankylosis at L1-2. Grade 1 L4-L5 anterolisthesis. Mild widening of the right facet joint at L1-L2 appears chronic, secondary to degenerative change and partial ankylosis at this level. Grade I anterolisthesis at T10 on T11 and facet arthropathy causes mild canal stenosis without associated cord impingement.Soft tissues: Mild bilateral subcutaneous flank edema.IMPRESSION: 1. No acute traumatic abnormality of the chest abdomen or pelvis.2. 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 Colonic diverticulosis without acute diverticulitis.[id number] ReportsLNDiagnostic ReportsTXTAVAvailable for patient [id number] ReportsLNMHIEFoundation Surgical Hospital of [facility] [place]2020-12-06T08:01:00 2020-09-05 06:08:00 [id number]:08:00EXAM: XR CHEST [facility] VIEWDATE: 09/05/2020 6:[address] INDICATION: - preopCOMPARISON: None.TECHNIQUE: AP supine chest.FINDINGS:Lines, tubes and hardware: Left shoulder arthroplasty noted.Lungs and pleura: Pulmonary vascularity is normal. Low lung volumes are present, with bibasilar subsegmental atelectasis and vascular crowding. There is a moderately elevated right hemidiaphragm. The costophrenic sulci are sharp without effusion. No pneumothorax is identified.Heart and mediastinum: The heart size is top normal. The thoracic aorta is tortuous. Bones and soft tissues: Age-indeterminate, displaced right distal clavicular fracture.IMPRESSION: 1. Low lung volumes, otherwise no acute abnormality.2. Age-indeterminate displaced distal right clavicular fracture.UT SECTION: [id number] ReportsLNDiagnostic ReportsTXTAVAvailable for patient careCuero Regional Hospital2020-12-06T07:02:00 2020-09-05 06:08:00 [id number]:08:00EXAM: XR CHEST 1 [facility] VIEWDATE: 09/05/2020 6:[address] INDICATION: - preopCOMPARISON: None.TECHNIQUE: AP supine chest.FINDINGS:Lines, tubes and hardware: Left shoulder arthroplasty noted.Lungs and pleura: Pulmonary vascularity is normal. Low lung volumes are present, with bibasilar subsegmental atelectasis and vascular crowding. There is a moderately elevated right hemidiaphragm. The costophrenic sulci are sharp without effusion. No pneumothorax is identified.Heart and mediastinum: The heart size is top normal. The thoracic aorta is tortuous. Bones and soft tissues: Age-indeterminate, displaced right distal clavicular fracture.IMPRESSION: 1. Low lung volumes, otherwise no acute abnormality.2. Age-indeterminate displaced distal right clavicular fracture.UT SECTION: [id number] ReportsLNDiagnostic ReportsTXTAVAvailable for patient [id number] ReportsLNCuero Regional Hospital2020-12-06T07:02:00 2020-09-05 06:08:00 [id number]:08:00EXAM: XR CHEST 1 [facility] VIEWDATE: 09/05/2020 6:[address] INDICATION: - preopCOMPARISON: None.TECHNIQUE: AP supine chest.FINDINGS:Lines, tubes and hardware: Left shoulder arthroplasty noted.Lungs and pleura: Pulmonary vascularity is normal. Low lung volumes are present, with bibasilar subsegmental atelectasis and vascular crowding. There is a moderately elevated right hemidiaphragm. The costophrenic sulci are sharp without effusion. No pneumothorax is identified.Heart and mediastinum: The heart size is top normal. The thoracic aorta is tortuous. Bones and soft tissues: Age-indeterminate, displaced right distal clavicular fracture.IMPRESSION: 1. Low lung volumes, otherwise no acute abnormality.2. Age-indeterminate displaced distal right clavicular fracture.UT SECTION: [id number] ReportsLNDiagnostic ReportsTXTAVAvailable for patient [id number] ReportsLNCuero Regional Hospital2020-12-06T07:02:00 2020-09-05 06:08:00 [id number]:08:00EXAM: XR CHEST 1 [facility] VIEWDATE: 09/05/2020 6:[address] INDICATION: - preopCOMPARISON: None.TECHNIQUE: AP supine chest.FINDINGS:Lines, tubes and hardware: Left shoulder arthroplasty noted.Lungs and pleura: Pulmonary vascularity is normal. Low lung volumes are present, with bibasilar subsegmental atelectasis and vascular crowding. There is a moderately elevated right hemidiaphragm. The costophrenic sulci are sharp without effusion. No pneumothorax is identified.Heart and mediastinum: The heart size is top normal. The thoracic aorta is tortuous. Bones and soft tissues: Age-indeterminate, displaced right distal clavicular fracture.IMPRESSION: 1. Low lung volumes, otherwise no acute abnormality.2. Age-indeterminate displaced distal right clavicular fracture.UT SECTION: [id number] ReportsLNDiagnostic ReportsTXTAVAvailable for patient [id number] ReportsLNCuero Regional Hospital2020-12-06T07:02:00 2020-09-05 03:25:00 [id number]:25:00EXAM: XR RIGHT [facility] WRIST 3 VIEWSDATE: 09/05/2020 3:25 [place] CSTINDICATION: - splinted, concern for fractureCOMPARISON: Wrist x-ray from 09/04/2020 2:31 AMTECHNIQUE: PA, lateral and oblique radiographs of the wrist.FINDINGS: Overlying splint material obscures bone and soft tissue detail. Generalized osteopenia. No acute fracture or malalignment is identified.Degenerative changes at the first CMC joint and triscaphe joint. Triangular fibrocartilage calcification noted.Mild wrist swelling.IMPRESSION: Overlying splint obscures fine detail, no definite fracture is identified.UT SECTION: [id number] ReportsLNDiagnostic ReportsTXTAVAvailable for patient careCuero Regional Hospital2020-12-06T06:34:00 2020-09-05 03:25:00 [id number]:25:00EXAM: XR RIGHT [facility] WRIST 3 VIEWSDATE: 09/05/2020 3:25 Center CSTINDICATION: - splinted, concern for fractureCOMPARISON: Wrist x-ray from 09/04/2020 2:31 AMTECHNIQUE: PA, lateral and oblique radiographs of the wrist.FINDINGS: Overlying splint material obscures bone and soft tissue detail. Generalized osteopenia. No acute fracture or malalignment is identified.Degenerative changes at the first CMC joint and triscaphe joint. Triangular fibrocartilage calcification noted.Mild wrist swelling.IMPRESSION: Overlying splint obscures fine detail, no definite fracture is identified.UT SECTION: [id number] ReportsLNDiagnostic ReportsTXTAVAvailable for patient [id number] ReportsL[facility]2020-12-06T06:34:00 2020-09-05 03:25:00 [id number]:25:00EXAM: XR RIGHT [facility] 3 VIEWSDATE: 09/05/2020 3:25 Center CSTINDICATION: - splinted, concern for fractureCOMPARISON: Wrist x-ray from 09/04/2020 2:31 AMTECHNIQUE: PA, lateral and oblique radiographs of the wrist.FINDINGS: Overlying splint material obscures bone and soft tissue detail. Generalized osteopenia. No acute fracture or malalignment is identified.Degenerative changes at the first CMC joint and triscaphe joint. Triangular fibrocartilage calcification noted.Mild wrist swelling.IMPRESSION: Overlying splint obscures fine detail, no definite fracture is identified.UT SECTION: [id number] ReportsLNDiagnostic ReportsTXTAVAvailable for patient [id number] ReportsLNCuero Regional Hospital2020-12-06T06:34:00 2020-09-05 03:25:[id number]:25:00EXAM: XR RIGHT [facility] 3 VIEWSDATE: 09/05/2020 3:25 Center CSTINDICATION: - splinted, concern for fractureCOMPARISON: Wrist x-ray from 09/04/2020 2:31 AMTECHNIQUE: PA, lateral and oblique radiographs of the wrist.FINDINGS: Overlying splint material obscures bone and soft tissue detail. Generalized osteopenia. No acute fracture or malalignment is identified.Degenerative changes at the first CMC joint and triscaphe joint. Triangular fibrocartilage calcification noted.Mild wrist swelling.IMPRESSION: Overlying splint obscures fine detail, no definite fracture is identified.UT SECTION: [id number] ReportsLNDiagnostic ReportsTXTAVAvailable for patient [id number] ReportsLNCuero Regional Hospital2020-12-06T06:34:00 2020-09-05 00:50:17 [id number]:50:17EXAM: [facility] CERVICAL SPINE Center WITHOUT CONTRAST.DATE: 09/04/2020 10:05 PM CSTINDICATION: - concern for ligamentous injury after mechanical fall COMPARISON: CT of the cervical spine done at an outside facility on 09/04/2020.TECHNIQUE: Multiplanar multisequence magnetic resonance imaging images of the cervical spine.IV Contrast: None.FINDINGS: Mild prevertebral edema is seen from the C3-C6 level. There is no edema in the vertebral bodies to indicate a vertebral fracture.Mild edema is noted around the right C5-C6 facet and there is minimal edema around the left C5-C6 facet. This is suggestive of facet strain. The facet alignment is maintained.The patient has fusion of the bilateral C4-C5 facets seen on the prior computed tomography scan.Multilevel cervical spondylosis which is most pronounced below the C4 level results in straightening of the cervical spine.Mild to moderate central canal stenosis is noted at C5-C6 and C6-C7. Moderate to severe bilateral neural foraminal narrowing is seen at C5-C6.The craniocervical junction appears unremarkable.There is no cord signal abnormality. IMPRESSION: 1. Mild prevertebral edema from C3 through C6 indicating ligamentous strain. Mild edema is noted around the bilateral C5-C6 facets. Moderate bilateral facet disease is noted.2. There is no edema in the vertebral bodies to indicate a fracture.3. Fusion of the bilateral C4-C5 facets.4. Lower cervical spondylosis causing piry-nu-lfunzrwf canal stenosis at C5-C6 and C6-C7. There is no cord signal abnormality identified.[id number] ReportsLNDiagnostic ReportsTXTAVAvailable for patient careCuero Regional Hospital2020-12-06T12:17:00 2020-09-05 00:50:17 [id number]:50:17EXAM: [facility] CERVICAL SPINE Center WITHOUT CONTRAST.DATE: 09/04/2020 10:05 PM CSTINDICATION: - concern for ligamentous injury after mechanical fall COMPARISON: CT of the cervical spine done at an outside facility on 09/04/2020.TECHNIQUE: Multiplanar multisequence magnetic resonance imaging images of the cervical spine.IV Contrast: None.FINDINGS: Mild prevertebral edema is seen from the C3-C6 level. There is no edema in the vertebral bodies to indicate a vertebral fracture.Mild edema is noted around the right C5-C6 facet and there is minimal edema around the left C5-C6 facet. This is suggestive of facet strain. The facet alignment is maintained.The patient has fusion of the bilateral C4-C5 facets seen on the prior computed tomography scan.Multilevel cervical spondylosis which is most pronounced below the C4 level results in straightening of the cervical spine.Mild to moderate central canal stenosis is noted at C5-C6 and C6-C7. Moderate to severe bilateral neural foraminal narrowing is seen at C5-C6.The craniocervical junction appears unremarkable.There is no cord signal abnormality. IMPRESSION: 1. Mild prevertebral edema from C3 through C6 indicating ligamentous strain. Mild edema is noted around the bilateral C5-C6 facets. Moderate bilateral facet disease is noted.2. There is no edema in the vertebral bodies to indicate a fracture.3. Fusion of the bilateral C4-C5 facets.4. Lower cervical spondylosis causing wzfw-ve-ioxyyviq canal stenosis at C5-C6 and C6-C7. There is no cord signal abnormality identified.[id number] ReportsLNDiagnostic ReportsTXTAVAvailable for patient [id number] ReportsLNCuero Regional Hospital2020-12-06T12:17:00 2020-09-05 00:50:17 [id number]:50:17EXAM: [facility] CERVICAL SPINE Center WITHOUT CONTRAST.DATE: 09/04/2020 10:05 PM CSTINDICATION: - concern for ligamentous injury after mechanical fall COMPARISON: CT of the cervical spine done at an outside facility on 09/04/2020.TECHNIQUE: Multiplanar multisequence magnetic resonance imaging images of the cervical spine.IV Contrast: None.FINDINGS: Mild prevertebral edema is seen from the C3-C6 level. There is no edema in the vertebral bodies to indicate a vertebral fracture.Mild edema is noted around the right C5-C6 facet and there is minimal edema around the left C5-C6 facet. This is suggestive of facet strain. The facet alignment is maintained.The patient has fusion of the bilateral C4-C5 facets seen on the prior computed tomography scan.Multilevel cervical spondylosis which is most pronounced below the C4 level results in straightening of the cervical spine.Mild to moderate central canal stenosis is noted at C5-C6 and C6-C7. Moderate to severe bilateral neural foraminal narrowing is seen at C5-C6.The craniocervical junction appears unremarkable.There is no cord signal abnormality. IMPRESSION: 1. Mild prevertebral edema from C3 through C6 indicating ligamentous strain. Mild edema is noted around the bilateral C5-C6 facets. Moderate bilateral facet disease is noted.2. There is no edema in the vertebral bodies to indicate a fracture.3. Fusion of the bilateral C4-C5 facets.4. Lower cervical spondylosis causing vcqt-rt-bazyxptm canal stenosis at C5-C6 and C6-C7. There is no cord signal abnormality identified.[id number] ReportsLNDiagnostic ReportsTXTAVAvailable for patient [id number] ReportsLNMHIEFoundation Surgical Hospital of [facility]2020-12-06T12:17:00 2020-09-05 00:50:17 [id number]:50:17EXAM: [facility] CERVICAL SPINE Center WITHOUT CONTRAST.DATE: 09/04/2020 10:05 PM CSTINDICATION: - concern for ligamentous injury after mechanical fall COMPARISON: CT of the cervical spine done at an outside facility on 09/04/2020.TECHNIQUE: Multiplanar multisequence magnetic resonance imaging images of the cervical spine.IV Contrast: None.FINDINGS: Mild prevertebral edema is seen from the C3-C6 level. There is no edema in the vertebral bodies to indicate a vertebral fracture.Mild edema is noted around the right C5-C6 facet and there is minimal edema around the left C5-C6 facet. This is suggestive of facet strain. The facet alignment is maintained.The patient has fusion of the bilateral C4-C5 facets seen on the prior computed tomography scan.Multilevel cervical spondylosis which is most pronounced below the C4 level results in straightening of the cervical spine.Mild to moderate central canal stenosis is noted at C5-C6 and C6-C7. Moderate to severe bilateral neural foraminal narrowing is seen at C5-C6.The craniocervical junction appears unremarkable.There is no cord signal abnormality. IMPRESSION: 1. Mild prevertebral edema from C3 through C6 indicating ligamentous strain. Mild edema is noted around the bilateral C5-C6 facets. Moderate bilateral facet disease is noted.2. There is no edema in the vertebral bodies to indicate a fracture.3. Fusion of the bilateral C4-C5 facets.4. Lower cervical spondylosis causing zswd-bl-lkmnwutb canal stenosis at C5-C6 and C6-C7. There is no cord signal abnormality identified.[id number] ReportsLNDiagnostic ReportsTXTAVAvailable for patient [id number] ReportsLNCuero Regional Hospital2020-12-06T12:17:00 2020-09-04 21:38:00 [id number]:38:00[facility]AMINATION[facility]2020INDICATION: Concussion. Fall.FINDINGS:Noncontrast CT images of the head are performed at an outside institution and submitted for reinterpretation following transfer.There is no intracranial hemorrhage or other brain injury.The skull and sinuses are intact.IMPRESSION: No acute intracranial abnormality.UT SECTION: [id number] ReportsLNDiagnostic ReportsTXTAVAvailable for patient [facility]2020-12-05T23:32:00 2020-09-04 21:38:00 [id number]:38:00EXAMINATION: [facility] without contrastDATE[facility]2020INDICATION: Concussion. Fall.FINDINGS:Noncontrast CT images of the head are performed at an outside institution and submitted for reinterpretation following transfer.There is no intracranial hemorrhage or other brain injury.The skull and sinuses are intact.IMPRESSION: No acute intracranial abnormality.UT SECTION: [id number] ReportsLNDiagnostic ReportsTXTAVAvailable for patient [id number] ReportsLNCuero [facility]2020-12-05T23:32:00 2020-09-04 21:38:00 [id number]:00EXAMINATION: [facility] head without contrastDATE: [facility] 09[facility]04[facility]2020INDICATION: Concussion. Fall.FINDINGS:Noncontrast CT images of the head are performed at an outside institution and submitted for reinterpretation following transfer.There is no intracranial hemorrhage or other brain injury.The skull and sinuses are intact.IMPRESSION: No acute intracranial abnormality.UT SECTION: [id number] ReportsLNDiagnostic ReportsTXTAVAvailable for patient [id number] ReportsLamb [facility]2020-12-05T23:32:00 2020-09-04 21:38:00 [id number]:38:00EXAMINATION: [facility] without contrastDATE: [facility]2020INDICATION: Concussion. Fall.FINDINGS:Noncontrast CT images of the head are performed at an outside institution and submitted for reinterpretation following transfer.There is no intracranial hemorrhage or other brain injury.The skull and sinuses are intact.IMPRESSION: No acute intracranial abnormality.UT SECTION: [id number] ReportsLNDiagnostic ReportsTXTAVAvailable for patient [id number] ReportsLamb Healthcare Center2020-12-05T23:32:00
--- NOTE | 2023-08-22 17:59 | ER ---
Nurse's Notes [facility] Name: Radha Bentley Age: 82 yrs Sex: Female : 1940 Arrival Date: 08/22/2023 Time: 15:12 Bed IW10 Private MD: Diagnosis: Bradycardia, unspecified Presentation: 08/22 15:29 Chief complaint: EMS states: Home health nurse noted HR 30s during visit today, urged hb ptt to come to ED for evaluation. BP 148/82, HR 70s. Coronavirus screen: At this time, the client does not indicate any symptoms associated with coronavirus-19. Ebola Screen: No symptoms or risks identified at this time. Initial Sepsis Screen: Does the patient meet any 2 criteria? No. Patient's initial sepsis screen is negative. Does the patient have a suspected source of infection? No. Patient's initial sepsis screen is negative. Risk Assessment: Do you want to hurt yourself or someone else? Patient reports no desire to harm self or others. Onset of symptoms was August 22, 2023. 15:29 Method Of Arrival: EMS: [facility] hb 15:29 Acuity: VAIBHAV 3 hb Historical: - Allergies: 15:31 Avelox; hb 15:31 Band-aid adhesive; hb - PMHx: 15:31 ADD/ADHD; COPD; Heart Murmur; Hyperlipidemia; Hypertension; Hypothyroidism; kidney hb disease; - PSHx: 15:31 bilateral knee replacement; breast reduction; Cholecystectomy; Shoulder replacment; hb Assessment: 20:00 General: Appears comfortable, Behavior is calm, cooperative. rv 20:00 Pain: Denies pain. Neuro: Level of Consciousness is awake, alert, Oriented to person, rv place, time, situation. Cardiovascular: Capillary refill < 3 seconds Patient's skin is warm and dry. Vital Signs: 15:37 BP 121 / 68; Pulse 55; Resp 16; Temp 98.1; Pulse Ox 100% on R/A; hb ED Course: 15:18 Patient arrived in ED. mr 15:23 Carina Ivey PA-C is PHCP. sb4 15:23 González Shah MD is Attending Physician. sb4 15:31 Triage completed. hb 15:37 Arm band placed on. hb Administered Medications: 19:19 Drug: Acetaminophen PO 1000 mg PO once Route: PO; nj1 Outcome: 17:59 Discharge ordered by . alvaro 20:00 Discharged to home ambulatory, via wheelchair, rv 20:00 Condition: good rv 20:00 Discharge instructions given to patient, Instructed on discharge instructions, follow up and referral plans. Demonstrated understanding of instructions, follow-up care, 23:00 Patient left the ED. rv Signatures: Mayi Bess, Reg Reg mr Mesha Herrera, RN RN Shree Alonzo RN ALAN rv Carina Ivey, PAKaelyn PA-Tessa Rey RN RN nj1
--- NOTE | 2023-08-22 18:00 | EDPHYS ---
Physician Documentation [facility] Name: Radha Bentley Age: 82 yrs Sex: Female : 1940 Arrival Date: 08/22/2023 Time: 15:12 Bed IW10 Private MD: ED Physician González Shah HPI: 08/22 16:12 This 82 yrs old Female presents to ER via EMS with complaints of bradycardia. sb4 16:12 home health informed patient that her HR was in the 30s and that she should be sb4 evaluated in the ED. HR in the 50s at this time. patient has no complaints other than a headache. she is unsure of what medications she takes. was seen here last night after a fall and had a negative CT . Historical: - Allergies: 15:31 Avelox; hb 15:31 Band-aid adhesive; hb - PMHx: 15:31 ADD/ADHD; COPD; Heart Murmur; Hyperlipidemia; Hypertension; Hypothyroidism; kidney hb disease; - PSHx: 15:31 bilateral knee replacement; breast reduction; Cholecystectomy; Shoulder replacment; hb ROS: 16:12 Constitutional: Negative for fever, chills, and weight loss, sb4 16:12 Neuro: Positive for headache, 16:12 All other systems are negative, Exam: 16:12 Constitutional: This is a well developed, well nourished patient who is awake, alert, sb4 and in no acute distress. Head/Face: Normocephalic, atraumatic. Eyes: Extra-ocular motions intact. Periorbital areas with no swelling, redness, or edema. ENT: Mucous membranes moist. Cardiovascular: Regular rate and rhythm with a normal S1 and S2. Respiratory: Lungs have equal breath sounds bilaterally, clear to auscultation and percussion. No rales, rhonchi or wheezes noted. No increased work of breathing, no retractions or nasal flaring. Abdomen/GI: Soft, non-tender, no distension. Skin: Warm, dry with normal turgor. Normal color with no rashes, no lesions, and no evidence of cellulitis. MS/ Extremity: Pulses equal, no cyanosis. Neurovascular intact. Full, normal range of motion. Neuro: Awake and alert, GCS 15, oriented to person, place, time, and situation. Motor strength 5/5 in all extremities. Sensory grossly intact. 16:36 ECG was reviewed by the Attending Physician. sb4 Vital Signs: 15:37 BP 121 / 68; Pulse 55; Resp 16; Temp 98.1; Pulse Ox 100% on R/A; hb MDM: 15:38 Patient medically screened. sb4 16:12 Data reviewed:. sb4 18:09 Data reviewed: EKG, and as a result, I will discharge patient. Consideration of sb4 Admission/Observation Escalation of care including admission/observation considered. Care significantly affected by the following chronic conditions: Hypertension, Chronic Kidney Disease. Counseling: I had a detailed discussion with the patient and/or guardian regarding the historical points, exam findings, and any diagnostic results supporting the discharge/admit diagnosis, the need for outpatient follow up, a fish drier, to return to the emergency department if symptoms worsen or persist or if there are any questions or concerns that arise at home. ED course: HR has remained in the 50s throughout the duration of her ED visit. she is completely asymptomatic. EKG is unchanged from prior. she is safe for discharge home. 08/22 15:47 Order name: EKG - Nurse/Tech; Complete Time: 16:29 sb4 08/22 15:47 Order name: Cardiac monitoring; Complete Time: 16:29 sb4 EC:36 Rate is 57 beats/min. Rhythm is regular, Sinus bradycardia with 1st degree heart block. sb4 Left axis deviation noted. LA interval is prolonged at 288 msec. QRS interval is normal at 142 msec. QT interval is prolonged at [address] changes noted. Clinical impression: Abnormal EKG without significant change, 1st degree heart block, Sinus bradycardia, and No evidence of ischemia. Interpreted by me. Reviewed by me. Administered Medications: 19:19 Drug: Acetaminophen PO 1000 mg PO once Route: PO; nj1 Disposition: 08/23 20:02 Co-signature as Attending Physician, González Shah MD I reviewed the patient's care rn provided by the Advanced Practice Provider and agree with the diagnosis and treatment plan. Disposition Summary: 08/22/23 17:59 Discharge Ordered Notes: Location: Home sb4 Problem: new sb4 Symptoms: are resolved sb4 Condition: Stable sb4 Diagnosis - Bradycardia, unspecified sb4 Followup: sb4 - With: Emergency Department - When: As needed - Reason: Trouble breathing, Worsening of condition Discharge Instructions: - Discharge Summary Sheet sb4 - Bradycardia, Adult sb4 Forms: - Medication Reconciliation Form sb4 - Thank You Letter sb4 - Antibiotic Education sb4 - Prescription Opioid Use sb4 - Patient Portal Instructions sb4 - Leadership Thank You Letter sb4 Signatures: González Shah MD MD rn Baxter, Heather, RN RN hb Brown, Sophia, PA-C PA-C sb4 Tessa Ewing RN RN nj1 Corrections: (The following items were deleted from the chart) 08/22 16:37 16:36 Rate is 57 beats/min. Rhythm is regular, Sinus bradycardia with 1st degree heart sb4 block. Left axis deviation noted. LA interval is prolonged at 288 msec. QRS interval is normal at 142 msec. QT interval is prolonged at [address] changes noted. Clinical impression: Abnormal EKG without significant change, 1st degree heart block, Sinus bradycardia, and No evidence of ischemia. Interpreted by me. Reviewed by me. sb4
[2023-08-22] MEDS ORDERED: ACETAMINOPHEN 500 MG TAB ONE (19:24)
[2023-08-22 23:37] VITALS: BP 121/68; TEMP 98.1; O2SAT 100
== END 2023-08-22 23:00 | disposition home or self-care (01) ==
LOC: ER 15:12
DX: R00.1 Bradycardia, unspecified (principal); I10 Essential (primary) hypertension; Z88.6 Allergy status to analgesic agent; Z91.048 Other nonmedicinal substance allergy status
CPT/HCPCS: 93005; 99283

== ENCOUNTER 2023-08-23 20:11 | Emergency (ER) | payer MEDICARE ==
--- OUTSIDE RECORDS SUMMARY | 2023-08-23 20:23 | XMS REPORT | Continuity of Care Document ---
:1940 Author Organization [facility] t Address [address] [facility]. [address] [place] [address] Care Team Providers Name Role Phone [place] Primary Care Physician Anurag Sanderson Attending Clinician Unavailable Cora Thomson Attending Clinician Deavers_C Attending Clinician Unavailable Cary Shannon Attending Clinician Rosita Guzman Attending Clinician GC_GCBZW_Kadiyala_S Attending Clinician Unavailable Glenys Claros Attending Clinician Alisa Sanders Attending Clinician Marianela Velez Attending Clinician Ashish Lomas Attending Clinician Doctor Unassigned, [place] Attending Clinician Unavailable Allegra Laura Attending Clinician CARLY SINCLAIR Attending Clinician Unavailable Carly Sinclair DO Attending Clinician Canalkim_Keesha Attending Clinician Unavailable Jeffrey Garcia Attending Clinician Olivia-Mbayo_A_AH Attending Clinician Unavailable Caitlyn Jerez Attending Clinician [phone] Vincent Soni Attending Clinician Sariah Becerra Attending Clinician Maria Luisa Rust NP Attending Clinician Timi Aguirre MD Attending Clinician TIMI AGUIRRE Attending Clinician Unavailable Physician, No Primary or Family Admitting Clinician Unavailchelly Brooks Admitting Clinician Unavailable Rosita Guzman Admitting Clinician GC_GCBZW_Kadiyala_S Admitting Clinician Unavailable Ayo Pan Admitting Clinician Ashish Lomas Admitting Clinician CARLY SINCLAIR Admitting Clinician Unavailable Sunny Admitting Clinician Unavailable Olivia-Mbayo_A_AH Admitting Clinician Unavailable Vincetn Soni Admitting Clinician TIMI AGUIRRE Admitting Clinician Unavailable Payers Payer Name Policy Type Policy Number Effective Date Expiration Date Carla peterson [facility] [id number] 2020 00:00:00 [employer] [place] [employer] [id number] 2019 CLASSIC/VALUE 00:00:00 [id number] (MEDICARE 00:00:00 REPLACEMENT HMO) [facility] - [id number] 2019 IFEANYIPLUS (MEDICARE 00:00:00 REPLACEMENT/ADVANTA GE - HMO) Problems [...] HEMORRHAGE 23:05: He rmann Active 00 11/25/2022 [facility] Acute Acute Diagnosis Active 2022-11-25 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: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 00 (disorder) (disorder) Active 11/22/2022 Diagnosis 11/25/2022 [facility] SUBARACHNO SUBARACHN Diagnosis Active 2022-11-23 Memoria ID OID 11-20 15:38:00 l HEMORRHAGE HEMORRHAGE 00:00: He rmann Active 00 11/20/2022 [facility] FALL FROM FALL Diagnosis Active 2019-102020-09-16 Memoria STANDING FROM 11-05 21:55:00 l STANDING 00:00: Raul Active 00 09/04/2020 [facility] S/P FALL, S/P FALL, Diagnosis Active 2019-102020-09-05 Memoria FRACTURED FRACTURED 11-05 00:45:00 l RIGHT RIGHT 00:00: Raul WRIST, WRIST, 00 HEAD HE HEAD HE Active 09/04/2020 [facility] Traumatic Problem 2022-12-04 Me moria subdural Traumatic 08:08:28 l hemorrhage subdural Herm bernie with loss hemorrhage of with loss consciousn of ess status consciousn unknown, ess status initial unknown, encounter initial encounter 12/04/2022 [facility] Intracrani Intracran Diagnosis 2022-12-02 Memoria al injury ial injury 04:21:54 l with loss with loss Herm bernie of of consciousn consciousn ess ess (disorder) (disorder) Diagnosis 12/02/2022 [facility] Unspecifie Problem 2023-07-16 M emorichelly d fall, Unspecifie 12:34:50 l initial d fall, Anderson encounter initial encounter 07/16/2023 [facility] Diagnosis 2023-07-23 Mem oria (finding) (finding) 04:20:50 l Diagnosis Raul 07/23/2023 [facility] 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 04:20:50 l in in Anderson cervical cervical region region (disorder) (disorder) Active Problem 07/23/2023 [facility] Chronic Chronic Problem Active 2023-07-23 Me moria kidney kidney 04:20:50 l disease disease Raul (disorder) (disorder) Active Problem 07/23/2023 [facility] 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 Raul disease disease (disorder) (disorder) Active Problem 07/23/2023 [facility] Depressive Depressiv Problem Active 2023-07-23 Memoria disorder e disorder 04:20:50 l (disorder) (disorder) He rmann Active Problem 07/23/2023 [facility] 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 04:20:50 l (disorder) (disorder) He rmann Active Problem 07/23/2023 [facility] Hypertensi Hypertens Problem Active 2023-07-23 Memoria ve lyle 04:20:50 l disorder, disorder, Herm bernie systemic systemic arterial arterial (disorder) (disorder) Active Problem 07/23/2023 [facility] Hyperlipid Hyperlipi Problem Active 2023-07-23 Memoria emia demia 04:20:50 l (disorder) (disorder) He rmann Active Problem 07/23/2023 [facility] Hypothyroi Hypothyro Problem Active 2023-07-23 Memoria dism idism 04:20:50 l (disorder) (disorder) He rmann Active Problem 07/23/2023 [facility] Memory Memory Problem Active 2023-07-23 Jose Francisco zhang impairment impairment 04:20:50 l (finding) (finding) Herm bernie Active Problem 07/23/2023 [facility] Morbid Morbid Problem Active 2023-07-23 Jose Francisco zhang obesity obesity 04:20:50 l (disorder) (disorder) He rmann Active Problem 07/23/2023 [facility] Recurrent Recurrent Problem Active 2023-07-23 Memoria falls falls 04:20:50 l (finding) (finding) Herm bernie Active Problem 07/23/2023 [facility] Transient Transient Problem Active 2023-07-23 Memoria ischemic ischemic 04:20:50 l attack attack Raul (disorder) (disorder) Active Problem 07/23/2023 [facility] Tremor Tremor Problem Active 2023-07-23 Jose Francisco zhang (finding) (finding) 04:20:50 l Active Anderson Problem 07/23/2023 [facility] 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 04:20:50 l disorder disorder Ajay n (disorder) (disorder) Active Problem 07/23/2023 [facility] 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 (disorder) (disorder) Active Problem 07/23/2023 [facility] Obese Obese Problem Active 2023-07-23 Jose Francisco zhang class I class I 04:20:50 l (finding) (finding) Herm bernie Active Problem 07/23/2023 [facility] TRAUM TRAUM Diagnosis Active 2022-12-11 Mem oria SUBDR HEM SUBDR HEM 21:45:00 l WITH LOC WITH LOC Ajay n STATUS STATUS UNKNOWN, UNKNOWN, Active [facility] UNSPECIFIE UNSPECIFI Diagnosis Active 2023-07-27 Memoria D FALL, ED FALL, 21:55:00 l INITIAL INITIAL Anderson ENCOUNTER ENCOUNTER Active [facility] HEART HEART Diagnosis Active 2023-07-27 Mem oria FAILURE, FAILURE, 21:55:00 l UNSPECIFIE UNSPECIFIE He rmann D D Active [facility] [id number] 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 - [facility] repl[facility]emen [facility] 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 [facility] [id number] Primary Problem Comm on osteoarthr Spirit itis, - [facility] right ankle and [facility] foot [facility] [id number] Primary Problem 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 [facility] arpal [facility] right hand [id number] Acute pain Problem Com mon of right Spirit shoulder - [facility] [id number] 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 [facility] [id number] Arthritis Problem Com mon of hand Spirit - [facility] History of Past Illness Condition Condition Condition Status Onset Resolution Last Treating Co mments Source Name Details Category Date Date Treatment Clinician Date Spinal Spinal Problem 2022-12-04 2022-12-04 Memoria stenosis, stenosis, 11-29 08:08:28 08:08:28 l cervical cervical 16:54: Ajay gorman region region 00 11/29/2022 3 [facility] Repeated Repeated Problem 2022-12-04 2022-12-04 Memoria falls falls 11-29 08:08:28 08:08:28 l 11/29/2022 16:45: Ajay gorman 3 [facility] Chronic Chronic Problem 2022-11-27 2022-11-27 Memoria kidney kidney 11-22 10:42:07 10:42:07 l disease, disease, 19:17: Ajay gorman unspecifie unspecifie 00 d d 11/22/2022 3 [facility] Allergies, Adverse Reactions, Alerts Allergy Allergy Status Severity Reaction(s) Onset Inactive Treating Comm ents Source Name Type Date Date Clinician ADHESIVE DRUG Active Med Rash Univers TAPE-DEBBY 8-30 ity of ICONES 00:00: [place] 00 [facility] MOXIFLOX DRUG Active Med Rash Univers ACIN HCL INGREDI 8-30 ity of 00:00: [place] 00 [facility] Adhesive Propensi Active Rash Univer s Tape-Debby ty to 8-30 ity of icones adverse 00:00: [place] reaction 00 Medical s to Branch drug Moxiflox Propensi Active Rash Univer s acin Hcl ty to 8-30 ity of adverse 00:00: [place] reaction 00 Medical s to Branch drug moxiflox DA Active [facility] acin HCl 2-15 [place] 00:00: [address] BANDAIDS DA Active [place] [facility] ADHESIVE 2-15 [place] 00:00: [address] Avelox Avelox Active Memoria l Anderson Avelox Allergy Active Rash [facility] to Medical substanc Group e Social History Social Habit Start Date Stop Date Quantity Comments Source ASSERTION [facility] Alcohol Comment Occasional [facility] History of Common Spirit - Tobacco Use [facility] Sex Assigned At Common Sp cristian - [facility] Alcohol intake 2022-08-10 2022-08-10 0 /d University 00:00:00 00:00:00 [facility] Exposure to 2022-07-26 2022-08-05 Not sure [facility] SARS-CoV-2 00:00:00 12:21:00 [facility] (event) [place] Social History 2020-09-05 2020-09-05 Nancy najera 14:31:45 14:31:45 Tobacco use and 2020-06-28 2020-06-28 Never used Universit y of exposure 00:00:00 00:00:00 [facility] [place] Smoking Status Start Date Stop Date Source Tobacco smoking status 2023-07-12 20:34:05 2023-07-12 20:34:05 Keesha Carter Never smoked tobacco [facility] Medications Ordered Filled Start Stop Current Ordering Indication Dosage Frequency Signature Comments Components Source Medication Medication Date Date Medication? Clinician (SIG) Name Name Coreg 3.125 2022-10 Yes 3.125 mg = Memoria mg oral 0-20 1 tab, PO, l tablet 17:29: BID, # 60 Ajay n 00 tab, 0 Refill(s), Pharmacy: [id number], 152.4, cm, 07/16/23 5:09:00 CDT, Height, 76.7, kg, 07/16/23 5:09:00 CDT, Weight Lasix 40 mg 2022-10 Yes 40 mg = 1 M emoria oral tablet 0-20 tab, PO, l 17:29: Daily, # Raul 00 30 tab, 0 Refill(s), Pharmacy: [facility] #[id number], 152.4, cm, 07/16/23 5:09:00 CDT, Height, 76.7, kg, 07/16/23 5:09:00 CDT, Weight escitalopra 2022-10 Yes 20 mg = 1 M emoria m 20 mg 0-16 tab, PO, l oral tablet 16:21: Q12H Ajay n 00 gabapentin 2022-10 Yes 100 mg = 1 M emoria 100 mg oral 0-16 cap, PO, l capsule 16:21: Bedtime Raul 00 rOPINIRole 2022-10 Yes 4 mg = 1 Mem oria 4 mg oral 0-16 tab, PO, l tablet 16:21: Q12H Anderson 00 buPROPion 2022-10 Yes 150 mg = 1 Me moria 150 mg/24 0-16 tab, PO, l hours (XL) 16:21: Q12H Anderson oral 00 tablet, extended release levothyroxi 2022-10 [...] dextrometho 2022-10 Yes Notes: Jose Francisco zhang dipikahan-guaiF 0-15 (dextromet l ENesin 10 18:24: roly-dhiraj [...] 0-12 Route: l 21:00: IVPB, Drug Raul 00 form: PDR/INJ, BFBS22V, Dosing Weight 73.6, kg, Start date: 07/12/23 [...] ia 0-12 Give with l 14:00: food. Anderson 00 (Same As: Coreg) levothyroxi 2022-10 Yes [...] Duration: 30 day, Stop date: 08/11/23 4:41:00 TUBE WASHER, Infuse over: 0.3 hr, 0 Dextrose 2022-10 No 25 mL, Memoria 50% Syringe 0-12 Route: l (D50W) 10:24: IVP, Dosing Weight 79.545, kg, PRN, PRN Blood Glucose Results, Start date: 07/12/23 5:24:00 CDT, Duration: 30 day, Stop date: 08/11/23 4:23:00 TUBE WASHER glucagon 2022-10 Yes 1 mg, Memoria 0-12 Route: IM, l 10:24: Drug form: Anderson 00 PDR/INJ, PRN, Dosing Weight 79.545, kg, PRN Blood Glucose Results, Start date: 07/12/23 5:24:00 CDT, Duration: 30 day, Stop date: 08/11/23 4:23:00 TUBE WASHER, 0 ondansetron 2022-10 Yes Notes: Jose Francisco zhang 0-12 (Same as: l 10:24: Zofran) Raul 00 MEDICATION WASTE Product Size: 4 mg Product Wasted: ___ mg acetaminoph 2022-10 Yes Notes: Do M emoria en 0-12 not exceed l 10:24: 4 gm/day. Anderson 00 (Same as: Tylenol) potassium 2022-10 Yes /= 14 Memoria chloride 0-12 Welsh, l 10:24: january Raul 00 dissolve each 20 mEq tablet in 4 oz of water. Allow about 2 minutes for the tablets to disintegra te. Stir before giving to prepare slurry and administer . Please exclude patient's with feeding tube less than 14 Welsh (Dobhoff, J-tube, etc) and pediatric and patients. potassium 2022-10 Yes Notes: Memori a phosphate-s 0-12 (Same as: l odium 10:24: Phos-NaK) Anderson phosphate 00 Each 1.5 250 mg-280 gm pkt has mg-160 mg 250mg oral powder phosphorou for s. Mix reconstitut w/2.5oz ion water and stir. potassium 2022-10 Yes Notes: Memori a phosphate + 0-12 (Same as: l Sodium 10:24: K Anderson Chloride 00 Phosphate. 0.9% IV 250 ) [...] oxide 0-12 (Same as: l 10:24: Mag-Ox Anderson 00 400) Magnesium oxide 611wy=644j g elemental magnesium Dose=____m g magnesium oxide [...] Memoria 0-12 Route: l 09:06: IVP, Drug Anderson 00 form: INJ, ONCE, Dosing Weight 79.545, [...] PO, l oral 16:43: Q8H, # 30 Anderson capsule(Dep 00 cap, 0 ekene) Refill(s), Pharmacy: [id number], 149.86, cm, 11/27/22 8:13:00 TUBE WASHER, Height, 86.364, kg, 11/27/22 8:13:00 TUBE WASHER, Weight Tylenol No 1 tab, PO, Jose Francisco zhang with 3-01 Q6H, PRN l Codeine #3 16:43: Pain Score H ermann oral tablet 00 7-10, X 3 day, # 12 tab, 0 Refill(s), Pharmacy: [id number], 149.86, cm, 11/27/22 8:13:00 TUBE WASHER, Height, 86.364, kg, 11/27/22 8:13:00 TUBE WASHER, Weight rOPINIRole 2022-0 Yes 2 mg = 1 Mem oria 2 mg oral 3-01 tab, PO, l tablet 16:42: Q12H, 0 Anderson 00 Refill(s) acetaminoph 3-0 Yes 100.4 F, M emoria en 325 mg 3-01 0 l oral 16:42: Refill(s) Raul tablet. 00 donepezil 2022-0 No 10 mg, 2 Jose Francisco zhang 2-28 tab, l 15:00: Route: PO, Anderson 00 Drug form: TAB, Daily, Dosing Weight 86.364, kg, Start date: 11/28/22 9:00:00 TUBE WASHER, Duration: 30 day, Stop date: 12/27/22 9:00:00 CDT, 0 ferrous 3-0 No Notes: Memoria sulfate 2-28 Give with l 15:00: food. "Do Anderson 00 Not Crush" NIFEdipine 2022-0 No 30 mg, 1 Mem oria 30 mg oral 2-28 tab, l tablet, 15:00: Route: PO, Herm bernie extended 00 Drug form: release ERTAB, Daily, Dosing Weight 86.364, kg, Start date: 11/28/22 9:00:00 TUBE WASHER, Duration: 30 day, Stop date: 12/27/22 9:00:00 CDT, 0 heparin 2022-0 No Notes: Memoria 5000 2-28 porcine l units/mL 14:00: heparin Ajay n injectable 00 solution levothyroxi 2022-0 No 112 Memori a ne 2-28 microgram, l 12:00: 1 tab, Anderson 00 Route: PO, Drug form: TAB, Q6AM, Dosing Weight 86.364, kg, Start date: 11/28/22 6:00:00 TUBE WASHER, Duration: 30 day, Stop date: 12/27/22 6:00:00 CDT, 0 Wellbutrin 2023-0 No 150 mg, 1 Me moria SR 2-28 tab, l 03:00: Route: PO, Drug form: ERTAB, Q12H, Dosing Weight 86.364, kg, Start date: 11/27/22 21:00:00 TUBE WASHER, Duration: 30 day, Stop date: 12/27/22 9:00:00 [...] Weight 86.364, kg, Start date: 11/27/22 21:00:00 TUBE WASHER, Duration: 30 day, Stop date: 12/26/22 21:00:00 CDT, 0 primidone 2022-0 No Notes: Memori a 2-28 (Same as: l 03:00: Mysoline) rOPINIRole 0 No Notes: Memor ia 2-28 TIME l 03:00: CRITICAL MEDICATION (Same as: Requip) rOPINIRole 0 No 4 mg, 1 Jose Francisco zhang 2-27 tab, l 23:00: Route: PO, Drug form: TAB, BID, Dosing Weight 86.364, kg, Start date: 11/27/22 17:00:00 TUBE WASHER, Duration: 30 day, Stop date: 12/27/22 9:00:00 CDT pantoprazol 2022-0 No 40 mg, 1 Me moria e 2-27 tab, l 23:00: Route: PO, Drug form: ECTAB, BID, Dosing Weight 86.364, kg, Start date: 11/27/22 17:00:00 TUBE WASHER, Duration: 30 day, Stop date: 12/27/22 9:00:00 CDT valproic No 500 mg, 2 Jose Francisco zhang acid 250 mg 2-27 cap, l oral 22:00: Route: PO, Anderson capsule(Dep Drug form: ekene) CAP, Q8H, Dosing Weight 86.364, kg, Start date: 11/27/22 16:00:00 TUBE WASHER, Duration: 7 day, Stop date: 12/04/22 8:00:00 TUBE WASHER, 0 gabapentin 0 No 100 mg, 1 Me moria 100 mg oral 2-27 cap, l capsule 17:20: Route: PO, Herm bernie Drug form: CAP, Daily, Dosing Weight 86.364, kg, Priority: NOW, Start date: 11/27/22 11:20:00 TUBE WASHER, Duration: 30 day, Stop date: 12/27/22 9:00:00 [...] Apresoline ) Push over 5 minutes labetalol 2023-0 No 10 mg, 2 Jose Francisco zhang 2-27 mL, Route: l 09:01: IVP, Drug form: INJ, Q15Min, Dosing Weight 86.364, kg, Start date: 11/27/22 3:01:00 TUBE WASHER, Duration: 3 doses or times, Stop date: 11/27/22 3:31:00 TUBE WASHER, 0 Tylenol No Notes: Do Memor ia with 2-27 not exceed l Codeine #3 09:01: 4gm/day of H ermann oral tablet 00 acetaminop hen. (Same as: Tylenol with Codeine # 3) tramadol No Notes: Not Mem oria - to exceed l 09:01: 400mg/day. Anderson 00 (Same As: Ultram) Saline No Notes: Memoria Flush 0.9% 11-27 (Same as: l 09:01: BD Raul 00 Posiflush) Insulin No Notes: Memoria regular 11-27 (Same as: l 09:01: Humulin R) Raul 00 Roll in palms of hands gently; Do not shake vigorously . WASTE: F/P - Black; E - Municipal Trash Bin Stable for 31 days at room temperatur e Expires in days from ____Date acetaminoph No 1,000 mg, M emoria en 11-27 Route: PO, l 06:27: Drug form: Anderson 00 TAB, ONCE, Dosing Weight 86.364, kg, Priority: STAT, Start date: 11/27/22 0:27:00 TUBE WASHER, Stop date: 11/27/22 0:27:00 TUBE WASHER Keppra No 1,000 mg, Memori a 11-27 Route: l 06:27: IVPB, Drug form: INJ, ONCE, Dosing Weight 86.364, kg, Loading Dose, Priority: STAT, Start date: 11/27/22 0:27:00 TUBE WASHER, Stop date: 11/27/22 0:27:00 TUBE WASHER heparin No Notes: Memoria 5000 2-22 porcine l units/mL 22:00: heparin Ajay n injectable 00 solution Tylenol 2023-0 No 1 tab, PO, Jose Francisco zhang with 2-22 Q6H, PRN l Codeine #3 19:14: Pain Score H ermann oral tablet 00 4-6, X 3 day, # 12 tab, 0 Refill(s), Pharmacy: [id number], 149.86, cm, 11/21/22 4:11:00 TUBE WASHER, Height, 86.364, kg, 11/21/22 4:11:00 TUBE WASHER, Weight gabapentin 2022-0 Yes 100 mg = 1 M emoria 100 mg oral 2-22 cap, PO, l capsule 19:13: Daily, # Ajay n 00 10 cap, 0 Refill(s), Pharmacy: [id number], 149.86, cm, 11/21/22 4:11:00 TUBE WASHER, Height, 86.364, kg, 11/21/22 4:11:00 TUBE WASHER, Weight Keppra 500 2022-0 Yes 500 mg = 1 M emoria mg oral 2-22 tab, PO, l tablet 19:13: Q12H, # 12 Jessie nn 00 tab, 0 Refill(s), Pharmacy: [id number], 149.86, cm, 11/21/22 4:11:00 TUBE WASHER, Height, 86.364, kg, 11/21/22 4:11:00 TUBE WASHER, Weight methocarbam 2022-0 Yes 500 mg = 1 Memoria ol 500 mg 2-22 tab, PO, l oral tablet 19:13: Q8H, X 10 H ermann 00 day, # 30 tab, 0 Refill(s), Pharmacy: [id number], 149.86, cm, 11/21/22 4:11:00 TUBE WASHER, Height, 86.364, kg, 11/21/22 4:11:00 TUBE WASHER, Weight Zofran 4 mg 2022-0 Yes 4 mg = 1 Me moria oral tablet 2-22 tab, PO, l 19:13: Q8H, PRN Anderson 00 Nausea/vom iting, X 7 day, # 21 tab, 0 Refill(s), Pharmacy: [id number], 149.86, cm, 11/21/22 4:11:00 TUBE WASHER, Height, 86.364, kg, 11/21/22 4:11:00 TUBE WASHER, Weight donepezil No Notes: Memori a 2-22 (Same as: l 15:00: Aricept) Anderson 00 ferrous No Notes: Memoria sulfate 2-22 Give with l 15:00: food. "Do Anderson 00 Not Crush" Lasix No Notes: Memoria [...] 00 mg, Route: PO, Daily, 11/22/22 9:00:00 TUBE WASHER, Duration: 30 day, Stop date: 12/21/22 9:00:00 CDT Keppra 500 No Notes: Memor ia mg oral 2-22 (Same l tablet 03:00: as:Keppra) Jessie nn 00 Coreg No Notes: Memoria 2-22 Give with l 03:00: food. Anderson 00 (Same As: Coreg) Lexapro No 20 mg, 2 Memori a 2-22 tab, l 03:00: Route: PO, Anderson Drug form: TAB, Q12H, Dosing Weight 86.364, kg, Start date: 11/21/22 21:00:00 TUBE WASHER, Duration: 30 day, Stop date: 12/21/22 9:00:00 CDT, 0 Pepcid 40 No Notes: Memori a mg oral 2-22 (Same as: l tablet 03:00: Pepcid) lovastatin No 20 mg, 1 Mem oria 2-22 tab, l 03:00: Route: PO, Drug form: TAB, Bedtime, Dosing Weight 86.364, kg, Start date: 11/21/22 21:00:00 TUBE WASHER, Duration: 30 day, Stop date: 12/20/22 21:00:00 CDT primidone 2022-0 No 50 mg, 1 Jose Francisco zhang 2-22 tab, l 03:00: Route: PO, Drug form: TAB, Bedtime, Dosing Weight 86.364, kg, Start date: 11/21/22 21:00:00 TUBE WASHER, Duration: 30 day, Stop date: 12/20/22 21:00:00 CDT, 0 rOPINIRole No 4 mg, 2 Jose Francisco zhang 2-22 tab, l 03:00: Route: PO, Drug form: TAB, Q12H, Dosing Weight 86.364, kg, Start date: 11/21/22 21:00:00 TUBE WASHER, Duration: 30 day, Stop date: 12/21/22 9:00:00 [...] Total Volume: 1,000, Start date: 11/21/22 16:13:00 TUBE WASHER, Duration: 30 day, Stop date: 12/21/22 16:12:00 CDT, BSA: 1.93 m2, 0 Voltaren 0 Yes 2 gm, TOP, Mem oria Topical 1% 2-21 QID, PRN, l topical gel 18:29: 0 Ajay n 00 Refill(s) Vitamin D2 Yes 50,000 Memor ia 50,000 intl 2-21 IntlUnit = l units (1.25 18:29: 1 cap, PO, Anderson mg) oral 00 qWeek, capsule then 1 [...] Daily, 0 Raul 00 Refill(s) Pepcid 40 0 Yes 40 [...] tab, PO, l tablet 18:26: Daily, 0 Anderson 00 Refill(s) NIFEdipine Yes 30 mg = [...] BID, 0 Raul 00 Refill(s) Lexapro 20 Yes 20 mg = 1 Me moria mg oral 2-21 tab, PO, l tablet 18:25: BID, 0 Raul 00 Refill(s) rOPINIRole Yes 4 mg = 1 Mem oria 4 mg oral 2-21 tab, PO, l tablet 18:25: BID, 0 Anderson 00 Refill(s) pantoprazol Yes 40 mg = 1 M emoria e 40 mg 2-21 tab, PO, l oral 18:24: BID, 0 Anderson enteric 00 Refill(s) coated tablet Wellbutrin Yes 150 mg = 1 M emoria SR 150 2-21 tab, PO, l mg/12 hours 18:23: BID, 0 Herm bernie oral 00 Refill(s) tablet, extended release levETIRAcet No Notes: Jose Francisco zhang am 11-21 Same as l 15:00: Keppra Anderson 00 MEDICATION WASTE Product Size: 500 mg Product Wasted: ___ mg docusate No Notes: Memoria 2- (Same as: l 15:00: Colace) Raul 00 (Do Not Crush) senna No Notes: Memoria 2-21 (Same as: l 15:00: Senokot) Anderson 00 lidocaine No Notes: Memori a topical [...] Rate: 50 l 0.9% IV 14:47: ml/hr, Anderson 1,000 mL 00 Infuse over: 20 hr, Route: IV, Dosing Weight 86.364 kg, Total Volume: 1,000, Start date: 11/21/22 8:47:00 TUBE WASHER, Duration: 30 day, Stop date: 12/21/22 8:46:00 [...] Weight 86.364, kg, Start date: 11/21/22 8:47:00 TUBE WASHER, Duration: 3 doses or times, Stop date: 11/21/22 9:17:00 TUBE WASHER, 0 Saline No Notes: Memoria Flush 0.9% 2-21 (Same as: l 14:47: BD Raul 00 Posiflush) Tylenol No 1,000 mg, Memor ia 2-21 Route: PO, l 14:03: ONCE, Anderson 00 Dosing Weight 86.364, kg, Start date: 11/21/22 8:03:00 TUBE WASHER, Stop date: 11/21/22 8:03:00 TUBE WASHER Saline No Notes: Memoria Flush 0.9% 2-21 [...] nn 00 90 tab, 2 Refill(s), Pharmacy: [id number], 149.86, cm, 11/02/21 14:32:00 TUBE WASHER, Height, 90.455, kg, 11/02/21 14:32:00 TUBE WASHER, Weight NIFEdipine Yes TAKE 1 Memor ia (Eqv-Adalat 2-02 TABLET BY l CC) 30 mg 20:38: MOUTH Raul oral 00 EVERY DAY tablet, ON EMPTY extended STOMACH release FOR 30 DAYS Furosemide Yes TAKE 1 Memor ia 40 MG Oral 2-02 TABLET BY l Tablet 20:38: MOUTH Anderson 00 EVERY DAY NEEDED FOR SWELLING tramadol [...] CAPSULE BY l MG Oral 20:38: MOUTH Anderson Capsule 00 TWICE A DAY Colestipol Yes TAKE 1 Memor ia Hydrochlori 2-02 TABLET BY l de 1000 MG 20:38: MOUTH Ajay n Oral Tablet 00 TWICE A DAY pantoprazol Yes TAKE 1 Jose Francisco zhang e 40 mg 2-02 TABLET BY l oral 20:38: MOUTH 2 Anderson enteric 00 TIMES coated DAILY HALF tablet HOUR BEFORE BREAKFAST OR FIRST MEAL oxybutynin Yes TAKE 1 Memor ia 5 mg oral 2-02 TABLET BY l tablet 20:38: MOUTH Anderson 00 THREE TIMES A DAY donepezil Yes = 1 tab, Jose Francisco zhang 10 mg oral 3-26 PO, Daily, l tablet 19:08: # 90 tab, Ajay n 00 1 Refill(s), Pharmacy: [facility] #[id number], 149.86, cm, 12/24/20 13:59:00 CDT, Height, 93.182, kg, 12/24/20 13:59:00 CDT, Weight primidone Yes 50 mg = 1 Mem oria 50 mg oral 3-26 tab, PO, l tablet 19:08: Bedtime, # Jessie nn 00 90 tab, 2 Refill(s), Pharmacy: [facility] #[id number], 149.86, cm, 12/24/20 13:59:00 CDT, Height, 93.182, kg, 12/24/20 13:59:00 CDT, Weight Lidocaine Lidocaine 0 No 10mg Com mon 3-11 [facility]: - [facility] 00 [facility] Celestone Celestone No 6mg Com mon Soluspan Soluspan 3-11 [facility] (Betamethas (Betamethas 00:00: - [facility] one) one) 00 [facility] Lidocaine Lidocaine 0 No 10mg Com mon 3-11 [facility] 00:[facility]: - [facility] 00 [facility] Celestone Celestone 0 No 6mg Com mon Soluspan Soluspan 3-11 [facility] (Betamethas (Betamethas 00:00: - [facility] one) one) [facility] Lidocaine Lidocaine 2021-0 No 10mg Com 12-09 [facility] 00:[facility]: - [facility] 00 [facility] Celestone Celestone 2020-0 No 6mg Com mon Soluspan Soluspan 3-11 [facility] (Betamethas (Betamethas 00:00: - [facility] one) one) 00 [facility] Lidocaine Lidocaine 2020-0 No 10mg Com 12-09 [facility] 00:00: - [facility] 00 [facility] Celestone Celestone 2020-0 No 6mg Com mon Soluspan Soluspan 3-11 [facility] (Betamethas (Betamethas 00:00: - [facility] one) one) 00 [facility] Lidocaine Lidocaine 2020-0 No 10mg Com 12-09 [facility] 00:00: - [facility] 00 [facility] Celestone Celestone 2020-0 No 6mg Com mon Soluspan Soluspan 3-11 [facility] (Betamethas (Betamethas 00:00: - [facility] one) one) 00 [facility] Lidocaine Lidocaine 2020-0 No 10mg Com 12-09 [facility] 00:00: - [facility] 00 [facility] Celestone Celestone 2020-0 No 6mg Com mon Soluspan Soluspan 3-11 [facility] (Betamethas (Betamethas 00:00: - [facility] one) one) 00 [facility] Lidocaine Lidocaine 2020-0 No 10mg Com 12-09 [facility] 00:00: - [facility] 00 [facility] Celestone Celestone 2020-0 No 6mg Com mon Soluspan Soluspan 3-11 [facility] (Betamethas (Betamethas 00:00: - [facility] one) one) 00 [facility] Lidocaine Lidocaine 2020-0 No 10mg Com 12-09 [facility] 00:00: - [facility] 00 [facility] Celestone Celestone 2020-0 No 6mg Com mon Soluspan Soluspan 3-11 [facility] (Betamethas (Betamethas 00:00: - [facility] one) one) 00 [facility] Lidocaine Lidocaine 1-0 No 10mg Com sun 3 [facility] 00:00: - [facility] 00 [facility] Celestone Celestone 2020-0 No 6mg Com mon Soluspan Soluspan 3-11 [facility] (Betamethas (Betamethas 00:00: - [facility] one) one) 00 [facility] Lidocaine Lidocaine No 10mg Com mon 3-11 [facility] 00:00: - [facility] 00 [facility] Celestone Celestone No 6mg Com mon Soluspan Soluspan 3-11 [facility] (Betamethas (Betamethas 00:00: - [facility] one) one) 00 [facility] Lovastatin 2019-10 No 20 mg, 1 Mem oria 2-07 tab, l 03:00: Route: PO, Drug form: TAB, Bedtime, Dosing Weight 104.545, kg, Start date: 09/05/20 21:00:00 TUBE WASHER, Duration: 30 day, Stop date: 10/04/20 21:00:00 TUBE WASHER Primidone 2019-10 No Notes: Memori a 2-07 [...] 104.545, kg, Daily, Start date: 09/05/20 9:00:00 TUBE WASHER, Duration: 30 day, Stop date: 10/04/20 9:00:00 TUBE WASHER gabapentin 2019-10 No Notes: Memor ia 300 MG Oral 2-06 (Same as: l Capsule 15:00: Neurontin) ropinirole 2019-10 No Notes: Memor ia 2-06 (Same as: l 15:00: Requip) Streptococc 2019-10 No Notes: Jose Francisco zhang us 2-06 Shake well l pneumoniae 14:12: prior to Her ivory serotype 1 45 use (Same capsular as: antigen Prevnar diphtheria 13) [id number] protein conjugate vaccine / Streptococc us pneumoniae serotype 14 capsular antigen diphtheria [id number] protein conjugate vaccine / Streptococc us pneumoniae [...] kg, ONCALL, STAT, Start date: 09/05/20 6:39:00 TUBE WASHER, Duration: 1 doses or times, Dose = 2.2ml/kg, Max dose = 100ml -- "To be infused by Radiology Staff ONLY" Acetaminoph 2019-10 No Notes: Max Memoria en 2-06 acetaminop l 07:00: hen 4000 Anderson 00 mg/day (4 gm/day). (Same as: Tylenol [...] l oral tablet 06:48: BID, # 180 Anderson 00 tab, 1 Refill(s) amLODIPine 2019-10 Yes 10 mg = 1 Me moria 10 mg oral 2-06 tab, PO, l tablet 06:48: Daily, # Anderson 00 90 tab, 0 Refill(s) escitalopra 2019-10 [...] Blood Glucose Results, Start date: 09/05/20 0:47:00 TUBE WASHER, Duration: 30 day, Stop date: 10/05/20 0:46:00 TUBE WASHER, 0 Glucagon 2019-10 No 1 mg, Memoria 2 Route: IM, l 06:47: Drug form: PDR/INJ, PRN, Dosing Weight 104.545, kg, PRN Blood Glucose Results, Start date: 09/05/20 0:47:00 TUBE WASHER, Duration: 30 day, Stop date: 10/05/20 0:46:00 TUBE WASHER, 0 sennosides, 2019-10 No Notes: Jose Francisco [...] Total Volume: 1,000, Start date: 09/05/20 0:47:00 TUBE WASHER, Duration: 1 day, Stop date: 09/06/20 0:46:00 TUBE WASHER, 1.97, m2, 0 Tums 2019-10 No Notes: [...] 0.65% 2-06 (Same as: l solution 06:47: [place], Deep Sea Nasal [place]). Tessalon 2019-10 No Notes: Memoria Perles 2-06 (Same As: l 06:47: Tessalon Perles) "Do Not Crush" Guaifenesin 2019-10 No Notes: Jose Francisco zhang 2-06 (Same as: l 06:47: Organidin Anderson 00 NR) Blistex 2019-10 No Notes: Memoria topical 11-06 Same as: l ointment 06:47: Blistex Ajay n 00 Albuterol 2019-10 No Notes: SEE Me moria 0.83 MG/ML 2-06 RT l Inhalant 06:47: DOCUMENTAT Her ivory Solution 00 ION (Same as: Proventil) Hydralazine 2019-10 No Notes: Jose Francisco zhang 06 (Same as: l 06:45: Apresoline Raul 00 ) Push over 5 minutes Acetaminoph 2019-10 No 1 tab, Jose Francisco zhang en 325 MG / 11-06 Route: PO, l Hydrocodone 04:07: Drug Form: Anderson Bitartrate 00 TAB, 5 MG Oral Dosing Tablet Weight 104.545, kg, ONCE, STAT, Start date: 09/04/20 22:07:00 TUBE WASHER, Stop date: 09/04/20 22:07:00 TUBE WASHER HYDROcodone 2019- No 1{tbl} 1 tablet, Univers -acetaminop 06-28 Oral, ity of hen (NORCO 20:30: 19:23 ONCE, 1 Carlos as 5) 5-325 mg 00 :00 dose, Mon Med ical tablet 1 06/28/20 at [facility] h tablet 1530, DIMITRIS metoprolol 2019- No 50mg 50 mg, [facility] ers succinate 06-28 Oral, ity of XL (TOPROL 18:15: 17:25 ONCE, 1 Carlos as XL) tablet 00 :00 dose, Mon Medi tania 50 mg 06/28/20 at Branch 1315, Routine lisinopriL 2019- No 40mg 40 mg, [facility] ers (PRINIVIL,Z 06-28 Oral, ity of ESTRIL) 18:15: 17:25 ONCE, 1 [place] tablet 40 00 :00 dose, Mon Medic al mg 06/28/20 at Branch 1315, Routine amLODIPine 2019- No 5mg 5 mg, Unive rs (NORVASC) 06-28 Oral, ity of tablet 5 mg 18:15: 17:25 [place]CE[place] 1 [place] :[place] dose, Mon Medical 06/28/20 at Branch 1315, DIMITRIS FENTanyl PF 2020-0 2020- No 25ug 25 mcg, Un martha [...] rs SULFATE 06-28 ity of INHALE 17:14: [place] [address] Medical Branch misoprostol 2019-0 2020- No 200ug [...] rs SULFATE - ity of INHALE 12:14: [address] Branch diphenoxyla 2020-0 Yes 1{tbl} Take 1 Un martha te-atropine 9-28 tablet by ity of (LOMOTIL) 12:14: mouth [place] 2.5-0.025 43 every 6 Medical mg tablet (six) Branch hours as needed. ALBUTEROL 2020-0 Yes Inhale. Unive rs SULFATE -28 ity of INHALE 12:14: [place] [address] Medical Branch acetaminoph 2020-0 Yes [id number] 1{tbl} [...] Jessie nn 00 tab, 3 Refill(s), [facility]: [id number], 149.86, cm, 05/25/20 13:41:00 CDT, Height, 95.455, kg, 05/25/20 13:41:00 CDT, Weight primidone 2020-0 No 50 mg = 1 Mem oria 50 mg oral 6-25 tab, PO, l tablet 13:48: Bedtime, # Jessie nn 00 90 tab, 3 Refill(s), Pharmacy: [id number], 149.86, cm, 03/24/20 9:12:00 CDT, Height, 90.909, kg, 03/24/20 9:12:00 CDT, Weight donepezil 2020-0 Yes 10 mg = 1 Mem oria 10 mg oral 6-24 tab, PO, l tablet 14:32: Daily, # Anderson 00 30 tab, 3 Refill(s), [facility]acy: [id number], 149.86, cm, 03/24/20 9:12:00 CDT, Height, 90.909, kg, 03/24/20 9:12:00 CDT, Weight primidone 2020-0 No 50 mg = 1 Mem oria 50 mg oral 6-24 tab, PO, l tablet 14:32: Bedtime, X Jessie nn 00 30 day, # 30 tab, 3 Refill(s), Pharmacy: [facility] #[id number], 149.86, cm, 03/24/20 9:12:00 CDT, Height, 90.909, kg, 03/24/20 9:12:00 CDT, Weight sucralfate Yes [id number] .25[in_ Apply 0.25 Univers malate, - us] Inches as ity of polymerized 00:00: directed 4 [place] 1 gram/10 00 (four) Medical mL Pste times Branch daily as needed for Pain (scale 1-3). sucralfate 2020- No [id number] .25[in_ Apply 0.25 Univers malate, 02-18 09-28 us] Inches as ity of polymerized 00:00: 00:00 directed 4 [place] 1 gram/10 00 :00 (four) Medical mL [...] 00 30 tab, 3 chewable Refill(s), Pharmacy: [facility] #[id number] levothyroxi 2018- Yes 125 Memori a [...] tab, PO, l tablet 20:06: Daily, # Anderson 00 90 tab, 0 Refill(s) Atropine 2018- [...] tab, PO, l tablet 20:06: BID, 0 Anderson 00 Refill(s) lisinopril 2019- Yes 40 mg = 1 Me moria 40 mg oral 5-24 tab, PO, l tablet 20:06: Daily, # Anderson 00 30 tab, 0 Refill(s) donepezil 2019- Yes 10 mg = 1 Mem oria 10 mg oral 5-24 tab, PO, l tablet 20:06: Daily, # Anderson 00 30 tab, 0 Refill(s) ProAir HFA 2018-0 Yes 1 - 2 Memori a 5-24 puffs, PO, l 20:06: Q4H, PRN Anderson 00 Wheezing / cough / shortness of breath, # 1 ea, 0 Refill(s) acetaminoph 2017-10 Yes Univer s en-codeine 1-18 ity of 300-30 mg 00:00: [place] tablet Medical Branch acetaminoph 2017-10 Yes Univer s [...] mouth ity of mg tablet 17:04: daily. [place] [address] Medical Branch lovastatin 2016-0 Yes 20mg Take [...] mouth ity of XL (TOPROL 11:04: daily. [place] XL) 50 mg 36 Medical 24 hr [...] mouth ity of mg tablet 11:04: daily. [place] [address] Medical Branch lovastatin 2017-0 Yes 20mg Take 20 mg U nivers (MEVACOR) 3-07 by mouth ity of 20 mg 11:04: daily. [place] tablet 36 Medical Branch lisinopril 2017-0 Yes 40mg Take 40 mg U nivers (PRINIVIL,Z 3-07 by mouth ity of ESTRIL) 40 11:04: daily. [place] mg tablet 36 Medical Branch escitalopra Yes [...] mouth ity of XL (TOPROL 11:04: daily. [place] XL) 50 mg 36 Medical 24 hr [...] mouth ity of mg tablet 11:04: daily. [place] [address] Medical Branch lovastatin Yes 20mg Take 20 mg U nivers (MEVACOR) 3-07 by mouth ity of 20 mg 11:04: daily. [place] tablet 36 Medical Branch Advair Advair No [...] MG 20 MG Cephalexin Cephalexin No Cephalexin escitalopra escitalopra No escitalopr Devoted m 20 [...] Flublok Quadrivalen Quadrivalen Quadrivale t t nt famotidine famotidine No famotidine Devoted 20 mg 20 mg 20 mg Medical tablet TAKE tablet TAKE tablet Group 1 TABLET BY 1 TABLET BY TAKE 1 MOUTH EVERY MOUTH EVERY TABLET BY DAY DAY MOUTH EVERY DAY amLODIPine amLODIPine No [...] Lovastatin 20 MG 20 MG 20 MG gabapentin gabapentin No gabapentin Devoted 300 [...] Pantoprazo e Sodium e Sodium le Sodium ipratropium ipratropium No ipratropiu Devoted bromide 21 bromide 21 m bromide Medical mcg (0.03 mcg (0.03 21 mcg Anand up %) nasal %) nasal (0.03 %) spray USE spray USE nasal SPRAY UP TO SPRAY UP TO spray USE 4 TIMES 4 TIMES SPRAY UP DAILY DAILY TO 4 TIMES DAILY Carvedilol Carvedilol No Carvedilol Famotidine Famotidine No [...] Sulfametho azole-Trime azole-Trime xazole-Tri thoprim thoprim methoprim levothyroxi levothyroxi No levothyrox Devoted ne 125 [...] HCl 10 MG t} HCl 10 MG lisinopril lisinopril No 1 Q1D lisinopril Devoted 40 mg 40 mg 40 mg Medical tablet Take tablet Take tablet Group 1 tablet 1 tablet Take 1 every day every day tablet by oral by oral every day route. route. by oral route. buPROPion buPROPion No buPROPion HCl ER (XL) [...] (XL) HCl ER (XL) HCl ER (XL) lovastatin lovastatin No lovastatin Devoted 20 mg [...] Mupirocin Mupirocin No Mupirocin Calcium Calcium Calcium metoprolol metoprolol No metoprolol Devoted succinate succinate succinate Medical 50 mg daily 50 mg daily 50 mg Group daily Spironolact Spironolact No Spironolac one one tone [...] MOUTH EVERY MOUTH DAY DAY EVERY DAY Carvedilol Carvedilol No Carvedilol Primidone [...] HCl 2 MG t} HCl 2 MG potassium potassium No potassium Devoted chloride ER chloride ER chloride Medical 10 mEq 10 mEq ER 10 mEq Group capsule,ext capsule,ext capsule,ex ended ended tended release release release TAKE 1 TAKE 1 TAKE 1 CAPSULE BY CAPSULE BY CAPSULE BY MOUTH EVERY MOUTH EVERY MOUTH DAY DAY EVERY DAY Diclofenac Diclofenac No Diclofenac Sodium [...] Lomotil No Lomotil Gabapentin Gabapentin No Gabapentin primidone primidone No primidone Devoted 50 mg 50 mg 50 mg Medical tablet TAKE tablet TAKE tablet Group 1 TABLET BY 1 TABLET BY TAKE 1 MOUTH MOUTH TABLET BY EVERYDAY AT EVERYDAY AT MOUTH BEDTIME BEDTIME EVERYDAY AT BEDTIME Omeprazole Omeprazole No QD Omeprazole 40 MG [...] HCl n HCl Cephalexin Cephalexin No Cephalexin ropinirole ropinirole No ropinirole Devoted 2 mg tablet 2 mg tablet 2 mg M edical TAKE 1 TAKE 1 tablet Group TABLET BY TABLET BY TAKE 1 MOUTH TWICE MOUTH TWICE TABLET BY A DAY A DAY MOUTH TWICE A DAY Ciprofloxac Ciprofloxac No Ciprofloxa in HCl in [...] #3 e #3 Famotidine Famotidine No Famotidine spironolact spironolact No spironolac Devoted one 25 mg one 25 mg tone 25 mg Medical tablet TAKE tablet TAKE tablet Group 1 TABLET BY 1 TABLET BY TAKE 1 MOUTH EVERY MOUTH EVERY TABLET BY DAY DAY MOUTH EVERY DAY Donepezil [...] (XL) HCl ER (XL) HCl ER (XL) topiramate topiramate No topiramate Devoted 25 mg 25 mg 25 mg Medical tablet TAKE tablet TAKE tablet Group 1 TABLET BY 1 TABLET BY TAKE 1 MOUTH AT MOUTH AT TABLET BY BEDTIME BEDTIME MOUTH AT BEDTIME Lovastatin Lovastatin No QD Lovastatin 20 MG [...] Mupirocin Mupirocin No Mupirocin Calcium Calcium Calcium Trelegy Trelegy No Trelegy Devote d Ellipta 100 Ellipta 100 Ellipta Medical mcg-62.5 mcg-62.5 100 Group mcg-25 mcg mcg-25 mcg mcg-62.5 powder for powder for mcg-25 mcg inhalation inhalation powder for INHALE 1 INHALE 1 inhalation PUFF BY PUFF BY INHALE 1 MOUTH EVERY MOUTH EVERY PUFF BY DAY DAY MOUTH EVERY DAY Spironolact [...] Comments Source height 2022-11-13 10:00:00 59 [in_i] [facility] weight 2022-11-13 10:00:00 188 [lb_av] [facility] temperature 2022-11-13 10:00:00 97.9 [degF] [facility] bmi 2022-11-13 10:00:00 37.97 kg/m2 [facility] blood pressure 2022-11-13 10:00:00 114 mm[Hg] [facility] - systolic [facility] blood pressure 2022-11-13 10:00:00 74 mm[Hg] [facility] - diastolic [facility] Systolic blood 2022-08-05 20:00:00 122 mm[Hg] Univer sity of [facility] Diastolic blood 2022-08-05 20:00:00 77 mm[Hg] Unive [facility] [place] Heart rate 2022-08-05 20:00:00 50 /min [facility] Respiratory rate 2022-08-05 20:00:00 18 /min [facility] Oxygen saturation in 2022-08-05 20:00:00 94 /min [facility] Arterial blood by [facility] Pulse oximetry Branch Body temperature 2022-08-05 17:24:00 36 Tracee [facility] Body height 2022-08-05 17:24:00 149.9 cm [facility] Body weight 2022-08-05 17:24:00 83.915 kg [facility] BMI 2022-08-05 17:24:00 37.37 kg/m2 [facility] height 2022-07-27 13:15:00 59 [in_i] [facility] weight 2022-07-27 13:15:00 188.2 [lb_av] [facility] temperature 2022-07-27 13:15:00 97.6 [degF] [facility] bmi 2022-07-27 13:15:00 38.01 kg/m2 [facility] blood pressure 2022-07-27 13:15:00 125 mm[Hg] [facility] - systolic [facility] blood pressure 2022-07-27 13:15:00 82 mm[Hg] [facility] - diastolic [facility] height 2022-06-15 13:30:00 59 [in_i] [facility] weight 2022-06-15 13:30:00 193 [lb_av] [facility] temperature 2022-06-15 13:30:00 98.1 [degF] [facility] bmi 2022-06-15 13:30:00 38.98 kg/m2 [facility] blood pressure 2022-06-15 13:30:00 128 mm[Hg] [facility] - systolic [facility] blood pressure 2022-06-15 13:30:00 76 mm[Hg] [facility] - diastolic [facility] height 2021-10-17 14:30:00 59 [in_i] [facility] weight 2021-10-17 14:30:00 220 [lb_av] [facility] temperature 2021-10-17 14:30:00 97.9 [degF] [facility] bmi 2021-10-17 14:30:00 44.43 kg/m2 [facility] blood pressure 2021-10-17 14:30:00 126 mm[Hg] [facility] - systolic [facility] blood pressure 2021-10-17 14:30:00 74 mm[Hg] [facility] - diastolic [facility] Systolic blood 2020-06-28 19:30:00 180 mm[Hg] Univer sity of pressure [place] [facility] Diastolic blood 2020-06-28 19:30:00 82 mm[Hg] Unive rsity of pressure [place] [facility] Heart rate 2020-06-28 19:30:00 61 /min [facility]i [facility] [place] [facility] Respiratory rate 2020-06-28 19:13:00 17 /min Univ ersity of [place] [facility] Oxygen saturation in 2020-06-28 19:13:00 96 /min University of Arterial blood by [facility] Pulse oximetry Branch Body temperature 2020-06-28 16:54:00 36.33 Tracee Univ ersity of [place] [facility] Body weight 2020-06-28 16:54:00 95.255 kg [facility] [place] [facility] BMI 2020-06-28 16:54:00 42.41 kg/m2 [facility] [place] [facility] Systolic blood 2020-06-28 19:30:00 180 mm[Hg] Univer sity of pressure [place] [facility] Diastolic blood 2020-06-28 19:30:00 82 mm[Hg] Unive rsity of pressure [place] [facility] Heart rate 2020-06-28 19:30:00 61 /min [facility] [place] [facility] Respiratory rate 2020-06-28 19:13:00 17 /min Univ ersity [facility] [place] [facility] Oxygen saturation in 2020-06-28 19:13:00 96 /min University of Arterial blood by [facility] Pulse oximetry Branch Body temperature 2020-06-28 16:54:00 36.33 Tracee Univ ersity [facility] [place] [facility] Body weight 2020-06-28 16:54:00 95.255 kg [facility] [place] [facility] BMI 2020-06-28 16:54:00 42.41 kg/m2 [facility] [place] [facility] Systolic blood 2020-02-19 19:23:00 160 mm[Hg] Univer sity of pressure [place] [facility] Diastolic blood 2020-02-19 19:23:00 84 mm[Hg] Unive rsity of pressure [place] [facility] Heart rate 2020-02-19 19:23:00 63 /min [facility] [place] [facility] Body temperature 2020-02-19 19:23:00 36.39 Tracee Univ ersity [facility] [place] [facility] Respiratory rate 2020-02-19 19:23:00 15 /min Univ ersity [facility] [place] [facility] Body height 2020-02-19 19:23:00 149.9 cm Universi [facility] [place] [facility] Body weight 2020-02-19 19:23:00 99.791 kg [facility] [place] [facility] BMI 2020-02-19 19:23:00 44.43 kg/m2 [facility] [place] [facility] Oxygen saturation in 2020-02-19 19:23:00 96 /min University of Arterial blood by [facility] tania Pulse oximetry Branch Systolic blood 2020-02-19 19:23:00 160 mm[Hg] Univer sity of pressure [place] [facility] Diastolic blood 2020-02-19 19:23:00 84 mm[Hg] Unive rsity of pressure [place] [facility] Heart rate 2020-02-19 19:23:00 63 /min [facility] [place] [facility] Body temperature 2020-02-19 19:23:00 36.39 Tracee Univ ersity [facility] [place] [facility] Respiratory rate 2020-02-19 19:23:00 15 /min Univ ersity [facility] [place] [facility] Body height 2020-02-19 19:23:00 149.9 cm [facility] [place] [facility] Body weight 2020-02-19 19:23:00 99.791 kg [facility] [place] [facility] BMI 2020-02-19 19:23:00 44.43 kg/m2 [facility] [place] [facility] Oxygen saturation in 2020-02-19 19:23:00 96 /min University of Arterial blood by [facility] Pulse oximetry Branch Systolic blood 2019-12-10 04:00:00 202 mm[Hg] Univer sity of pressure [place] [facility] Diastolic blood 2019-12-10 04:00:00 92 mm[Hg] Unive rsity of pressure [place] [facility] Heart rate 2019-12-10 04:00:00 75 /min [facility] [place] [facility] Respiratory rate 2019-12-10 04:00:00 18 /min Univ ersity [facility] [place] [facility] Oxygen saturation in 2019-12-10 04:00:00 98 /min University of Arterial blood by [facility] Pulse oximetry Branch Body temperature 2019-12-10 02:51:13 36.39 Tracee Univ ers[facility] [place] [facility] Body height 2019-12-10 02:28:00 162.6 cm [facility] [place] [facility] Body weight 2019-12-10 02:28:00 104.327 kg [facility] [place] [facility] BMI 2019-12-10 02:28:00 39.48 kg/m2 Universi ty [facility] Systolic blood 2019-12-10 04:00:00 202 mm[Hg] Univer sity of pressure [facility] [place] Diastolic blood 2019-12-10 04:00:00 92 mm[Hg] Unive rsity of pressure [facility] [place] Heart rate 2019-12-10 04:00:00 75 /min Universi [facility] Respiratory rate 2019-12-10 04:00:00 18 /min [facility] Oxygen saturation in 2019-12-10 04:00:00 98 /min [facility] Arterial blood by [facility] Pulse oximetry Branch Body temperature 2019-12-10 02:51:13 36.39 Tracee [facility] 2019-12-10 02:28:00 162.6 cm [facility] Body weight 2019-12-10 02:28:00 104.327 kg [facility] BMI 2019-12-10 02:28:00 39.48 kg/m2 [facility] Systolic (mm Hg) 2023-07-20 21:14:10 Jose Francisco rial [place] Diastolic (mm Hg) 2023-07-20 21:14:10 Mem orial Raul Heart Rate 2023-07-20 21:14:10 [facility] Temperature Oral (F) 2023-07-20 21:13:54 98.7 F [facility] Temperature Oral (F) 2023-07-20 12:55:46 97.3 F [facility] [place] Respitory Rate 2023-07-16 12:00:00 Chaoori al [place] Height 2023-07-16 10:09:00 5 [ft_i] [facility] [place] Weight 2023-07-16 10:09:00 [facility] Raul BMI Calculated 2023-07-16 10:09:00 Memori al [place] Heart Rate 2023-07-16 08:50:13 [facility] [place] Systolic (mm Hg) 2023-07-16 08:50:07 Jose Francisco rial [place] Diastolic (mm Hg) 2023-07-16 08:50:07 Mem orial Raul Heart Rate 2023-07-16 08:50:07 [facility] Raul Temperature Oral (F) 2023-07-16 08:49:45 98.6 F [facility] [place] Heart Rate 2023-07-16 05:15:43 [facility] Raul Systolic (mm Hg) 2023-07-16 05:15:36 Jose Francisco rial [place] Diastolic (mm Hg) 2023-07-16 05:15:36 Mem orial Raul Temperature Oral (F) 2023-07-16 05:14:09 98.5 F [facility] [place] Respitory Rate 2023-07-16 00:07:00 Memori al [place] Respitory Rate 2023-07-15 17:05:09 Memori al Raul Systolic (mm Hg) 2023-07-15 17:05:04 Jose Francisco rial Raul Diastolic (mm Hg) 2023-07-15 17:05:04 Mem orial Raul Temperature Oral (F) 2023-07-15 17:04:57 98.2 F [facility] [place] Height 2023-07-14 18:07:00 149.86 cm [facility] Ra[facility] Weight 2023-07-14 18:07:00 [facility] Raul Height 2023-07-12 16:48:00 149.86 cm [facility] [place] Weight 2023-07-12 16:48:00 [facility] Raul BMI Calculated 2023-07-12 16:48:00 Memori al Raul BMI Calculated 2023-07-12 06:53:00 Memori al Raul Weight 2023-07-12 06:53:00 [facility] [place] Heart Rate 2022-11-29 19:18:58 [facility]ul Systolic (mm Hg) 2022-11-29 19:18:48 Jose Francisco rial [place] Diastolic (mm Hg) 2022-11-29 19:18:48 Mem orial [place] Heart Rate 2022-11-29 19:18:48 [facility] Ra[facility] Temperature Oral (F) 2022-11-29 19:18:21 98.2 F [facility] Heart Rate 2022-11-29 13:36:55 [facility] [place] Systolic (mm Hg) 2022-11-29 13:36:27 Jose Francisco rial [place] Diastolic (mm Hg) 2022-11-29 13:36:27 Mem orial [place] Systolic (mm Hg) 2022-11-29 13:14:00 Jose Francisco rial Raul Diastolic (mm Hg) 2022-11-29 13:14:00 Mem orial Raul Respitory Rate 2022-11-29 10:05:34 Memori al [place] Temperature Oral (F) 2022-11-29 10:04:49 98.4 F [facility] Respitory Rate 2022-11-29 05:37:05 [facility] Temperature Oral (F) 2022-11-29 05:36:29 97.7 F [facility] Temperature Oral (F) 2022-11-29 02:00:00 98 F [facility] Respitory Rate 2022-11-28 20:51:03 [facility] Height 2022-11-28 19:03:00 4 [ft_i] [facility] Weight 2022-11-28 19:03:00 [facility] Height 2022-11-27 14:13:00 149.86 cm [facility] Weight 2022-11-27 14:13:00 [facility] BMI Calculated 2022-11-27 14:13:00 [facility] Height 2022-11-27 05:50:00 149.86 cm [facility] BMI Calculated 2022-11-27 05:50:00 [facility] Weight 2022-11-27 05:50:00 [facility] Systolic (mm Hg) 2022-11-23 01:23:00 Jose Francisco rial Raul Diastolic (mm Hg) 2022-11-23 01:23:00 Mem [facility] Respitory Rate 2022-11-23 01:23:00 [facility] Respitory Rate 2022-11-22 22:30:00 [facility] Systolic (mm Hg) 2022-11-22 22:30:00 Jose Francisco rial Raul Diastolic (mm Hg) 2022-11-22 22:30:00 [facility] Respitory Rate 2022-11-22 21:30:00 [facility] Systolic (mm Hg) 2022-11-22 21:30:00 Jose Francisco rial Anderson Diastolic (mm Hg) 2022-11-22 21:30:00 [facility] Temperature Oral (F) 2022-11-22 02:00:00 98.2 F [facility] Temperature Oral (F) 2022-11-21 22:54:00 97.7 F [facility] Temperature Oral (F) 2022-11-21 16:07:00 98.2 F [facility] Weight 2022-11-21 10:11:00 [facility] Heart Rate 2022-11-21 10:11:00 [facility] Height 2022-11-21 10:11:00 149.86 cm [facility] BMI Calculated 2022-11-21 10:11:00 [facility] Systolic (mm Hg) 2021-11-02 20:14:00 Jose Francisco rial Anderson Diastolic (mm Hg) 2021-11-02 20:14:00 [facility] Heart Rate 2021-11-02 20:14:00 [facility] Respitory Rate 2021-11-02 20:14:00 [facility] Height 2021-11-02 20:14:00 149.86 cm [facility] Weight 2021-11-02 20:14:00 [facility] BMI Calculated 2021-11-02 20:14:00 [facility] Systolic (mm Hg) 2020-12-24 18:59:00 Jose Francisco rial [facility] Diastolic (mm Hg) 2020-12-24 18:59:00 [facility] Heart Rate 2020-12-24 18:59:00 [facility] Respitory Rate 2020-12-24 18:59:00 [facility] Height 2020-12-24 18:59:00 149.86 cm [facility] Weight 2020-12-24 18:59:00 [facility] BMI Calculated 2020-12-24 18:59:00 [facility] Systolic (mm Hg) 2020-09-06 20:47:00 Jose Francisco rial Anderson Diastolic (mm Hg) 2020-09-06 20:47:00 [facility] Temperature Oral (F) 2020-09-06 18:26:00 99.7 F [facility] Heart Rate 2020-09-06 18:26:00 [facility] Respitory Rate 2020-09-06 18:26:00 [facility] Systolic (mm Hg) 2020-09-06 18:26:00 Jose Francisco rial Anderson Diastolic (mm Hg) 2020-09-06 18:26:00 [facility] Temperature Oral (F) 2020-09-06 14:09:00 98.1 F [facility] Heart Rate 2020-09-06 14:09:00 [facility] Respitory Rate 2020-09-06 14:09:00 [facility] Systolic (mm Hg) 2020-09-06 14:09:00 Jose Francisco rial Raul Diastolic (mm Hg) 2020-09-06 14:09:00 [facility] Temperature Oral (F) 2020-09-06 10:00:00 98.1 F [facility] Heart Rate 2020-09-06 10:00:00 [facility] Respitory Rate 2020-09-06 10:00:00 [facility] Temperature Oral (F) 2020-09-06 06:30:00 97.5 F [facility] Heart Rate 2020-09-06 06:30:00 [facility] Respitory Rate 2020-09-06 06:30:00 [facility] Systolic (mm Hg) 2020-09-06 06:30:00 Jose Francisco [...] Oral (F) 2020-09-05 22:00:00 97 F [facility] Heart Rate 2020-09-05 22:00:00 [facility] Respitory Rate 2020-09-05 22:00:00 [facility] Systolic (mm Hg) 2020-09-05 22:00:00 Jose Francisco rial Raul Diastolic (mm Hg) 2020-09-05 22:00:00 [facility] Height 2020-09-05 02:46:00 124.46 cm [facility] BMI Calculated 2020-09-05 02:46:00 [facility] Weight 2020-09-05 02:46:00 [facility] Systolic (mm Hg) 2020-05-25 18:41:00 Jose Francisco rial Anderson Diastolic (mm Hg) 2020-05-25 18:41:00 Mem o[facility] Heart Rate 2020-05-25 18:41:00 [facility] Respitory Rate 2020-05-25 18:41:00 [facility] Temperature Oral (F) 2020-05-25 18:41:00 98.6 F [facility] Height 2020-05-25 18:41:00 149.86 cm [facility] Weight 2020-05-25 18:41:00 [facility] BMI Calculated 2020-05-25 18:41:00 [facility] Systolic (mm Hg) 2020-03-24 14:12:00 Jose Francisco rial Anderson Diastolic (mm Hg) 2020-03-24 14:12:00 [facility] Heart Rate 2020-03-24 14:12:00 [facility] Height 2020-03-24 14:12:00 149.86 cm [facility] Weight 2020-03-24 14:12:00 [facility] BMI Calculated 2020-03-24 14:12:00 [facility] Systolic (mm Hg) 2019-07-24 19:29:00 Jose Francisco rial Raul Diastolic (mm Hg) 2019-07-24 19:29:00 Mem o[facility] Raul Heart Rate 2019-07-24 19:29:00 [facility] Respitory Rate 2019-07-24 19:29:00 [facility] Height 2019-07-24 19:29:00 149.86 cm [facility] Weight 2019-07-24 19:29:00 [facility] BMI Calculated 2019-07-24 19:29:00 [facility] Systolic (mm Hg) 2019-05-21 19:25:00 Jose Francisco rial Anderson Diastolic (mm Hg) 2019-05-21 19:25:00 [facility] o[facility] Ra[facility] Heart Rate 2019-05-21 19:25:00 [facility] Respitory Rate 2019-05-21 19:25:00 [facility] Height 2019-05-21 19:25:00 149.86 cm [facility] Weight 2019-05-21 19:25:00 [facility] BMI Calculated 2019-05-21 19:25:00 [facility] Height 2019-03-21 19:45:00 147.32 cm [facility] Weight 2019-03-21 19:45:00 [facility] BMI Calculated 2019-03-21 19:45:00 [facility] Respitory Rate 2019-03-21 19:45:00 [facility] Heart Rate 2019-03-21 19:45:00 [facility] Systolic (mm Hg) 2019-03-21 19:45:00 Jose Francisco rial [facility] Diastolic (mm Hg) 2019-03-21 19:45:00 [facility] Height 2019-02-21 20:01:00 149.86 cm [facility] Weight 2019-02-21 20:01:00 [facility] BMI Calculated 2019-02-21 20:01:00 [facility] Respitory Rate 2019-02-21 20:01:00 [facility] Heart Rate 2019-02-21 20:01:00 [facility] Systolic (mm Hg) 2019-02-21 20:01:00 Jose Francisco rial [facility] Diastolic (mm Hg) 2019-02-21 20:01:00 [facility] Procedures Procedure Date / Time Performing Clinician Source Performed AUTHORIZATION FOR 2022-11-22 06:01:00 Doctor Unassigned, No Univ [facility] RELEASE OF PHI Name Medical Branch XR CHEST 1 VW 2022-08-05 17:51:[address] [facility] TROPONIN I 2022-08-05 17:31:[address] [facility] COMP. METABOLIC PANEL 2022-08-05 17:31:[address] [facility] ([id number]) [facility] CBC WITH DIFF 2022-08-05 17:31:[address] [facility] RAPID INFLUENZA A/B 2022-08-05 17:31:00 Carly Sinclair [facility] N-TERMINAL PRO-BNP 2022-08-05 17:31:00 Carly Sinclair [facility] sity [facility] COVID-19 (ID NOW RAPID 2022-08-05 17:31:00 Carly Sinclair Un [facility] TESTING) [facility] CONSENT/REFUSAL FOR 2022-08-05 17:11:04 Doctor [facility]igned, [facility] Name Medical Branch XR FOREARM 2 VW RIGHT 2020-06-28 17:49:01 Sariah Miller [facility] XR SHOULDER 2+ VW RIGHT 2020-06-28 17:49:01 Sariah [facility] CONSENT/REFUSAL FOR 2020-02-19 18:58:01 [facility] Name [facility] XR TIBIA FIBULA 2 VW 2019-12-10 03:20:47 Timi Aguirre [facility] Encounters Start End Encounter Admission Attending Care Care Encounter Source Date/Time Date/Time Type Type Clinicians Facility Department ID 2023-04-30 Outpatient STLMLC STLMLC [id number] Common 12:50:00 [id number] [facility] 2023-03-[address] [facility] [id number] [place] 09:56:10 [id number] [facility] 2022-11-[address] [facility] [id number] [place] 08:22:57 [id number] [facility] 2022-11-[address] [facility] [id number] [place] 15:23:09 [id number] [facility] 2022-11-13 Outpatient STLMLC STLMLC [id number] Common 13:04:00 [id number] [facility] 2022-11-09 Outpatient STLMLC STLMLC [id number] Common 12:35:00 [id number] [facility] 2022-07-26 Outpatient STLMLC STLMLC [id number] Common 16:10:00 [id number] [facility] 2022-06-16 Outpatient STLMLC STLMLC [id number] Common 09:53:02 [id number] [facility] 2021-10-26 Outpatient STLMLC STLMLC [id number] Common 13:00:46 [id number] [facility] 2021-10-26 Outpatient STLMLC STLMLC [id number] Common 12:25:20 [id number] [facility] 2021-10-26 Outpatient STLMLC STLMLC [id number] Common 12:16:59 [id number] [facility] 2021-10-05 Inpatient NIC Sanderson, HCAWU ADMI [id number] [facility] 11:00:[address] [facility] 2021-07-29 Emergency [facility] [id number] Univers 19:46:17 ity [facility] 2021-07-28 Emergency [facility] [id number] Univers 21:53:33 ity [facility] 2023-08-21 2023-08-21 Care Cora Thomson 2.16.840. 2.16.840.1. C [id number] Devoted 21:38:00 22:08:00 Coordinati [id number]. 249968.4.6. 78C Medical on Non [id number] Billable [id number] 2023-07-30 2023-07-30 Outpatient Deavers_C DMG [facility] [id number] Devoted 00:00:00 00:00:00 1030 Medica l Group 2023-07-12 2023-07-20 Inpatient [facility] [id number] Memoria 06:50:31 23:29:00 Anderson 01 [facility] 2023-07-12 2023-07-20 Outpatient Mirtha [facility] [id number] 01:50:31 18:29:00 Cary 01 2023-07-12 2023-07-12 Outpatient Al Rosa, MHSE MHSE [id number] 01:50:31 01:50:31 Najlaa 2023-06-06 2023-06-06 Outpatient GC_GCBZW_Ka PRIV PRIV [id number] [facility] 00:00:00 00:00:00 diyala_S [id number] Medic al 2023-05-15 2023-05-15 Palliative Glenys 2.16.840. 2.16.840.1. C LACXSUHJY [facility] 18:00:00 19:00:00 Care PATIENT CASE MANAGER/MD Claros [id number]. 436877.4.6. EKC Medical Follow Up [id number] 2023-04-30 2023-04-30 Outpatient GC_GCBZW_Ka PRIV PRIV [id number] [facility] 00:00:00 00:00:00 diyala_S [id number] Medic al 2023-04-30 2023-04-30 Outpatient GC_GCBZW_Ka PRIV PRIV [id number] [facility] 00:00:00 00:00:00 diyala_S [id number] Medic al 2023-04-30 2023-04-30 Outpatient GC_GCBZW_Ka PRIV PRIV [id number] [facility] 00:00:00 00:00:00 diyala_S [id number] Medic al 2023-04-25 2023-04-25 Outpatient GC_GCBZW_Ka PRIV PRIV [id number] [facility] 00:00:00 00:00:00 diyala_S [id number] Medic al 2023-04-25 2023-04-25 Outpatient GC_GCBZW_Ka PRIV PRIV [id number] [facility] 00:00:00 00:00:00 diyala_S [id number] Medic al 2023-04-25 2023-04-25 Outpatient GC_GCBZW_Ka PRIV PRIV [id number] [facility] 00:00:00 00:00:00 diyala_S [id number] Medic al 2023-04-18 2023-04-18 Outpatient GC_GCBZW_Ka PRIV PRIV [id number] [facility] 00:00:00 00:00:00 diyala_S [id number] Medic al 2023-03-14 2023-03-14 Care Glenys 2.16.840. 2.16.840.1. CLAC [id number] [facility] 21:00:00 21:15:00 Coordinati Foster 1.956062. 063029.4.6. R6K Medical on Non 4.6.71716 [id number] Billable [id number] 2023-02-22 2023-02-22 Palliative Glenys 2.16.840. 2.16.840.1. C [id number] [facility] 17:30:00 18:30:00 Care Foster 1.515280. 408653.4.6. GFE Medical Follow Up 4.6.16733 [id number] 2023-02-14 2023-02-14 Outpatient NIC Sanderson, HCAWU SUGL [id number] [facility] 08:00:00 09:00:[address] [facility] 2023-02-08 2023-02-08 [place] [id number] [facility] 00:00:00 00:00:00 0511 Medica l Group 2023-02-08 2023-02-08 [place] [id number] [facility] 00:00:00 00:00:00 0626 Medica l Group 2023-01-31 2023-01-31 CAV Alisa 2.16.840. 2.16.840.1. CLA [id number] [facility] 19:00:00 20:00:00 Deavers 1.038066. 333156.4.6. WF9 [facility] 4.6.19592 [id number] 2023-01-22 2023-01-22 Outpatient Deavers_C DMG [facility] [id number] Devoted 00:00:00 00:00:00 0424 Medica l Group 2023-01-22 2023-01-22 [place] [id number] [facility] 00:00:00 00:00:00 0506 Medica l Group 2022-11-27 2022-11-29 Inpatient [facility] [id number] Memoria 05:48:00 21:37:[address] 2022-11-26 2022-11-29 Outpatient Agustin [facility] [id number] 23:48:00 15:37:00 Marianela 57 2022-11-26 2022-11-29 Outpatient Agustin [facility] [id number] 23:48:00 15:37:00 Marianela 57 2022-11-21 2022-11-22 Observatio [facility] [id number] Memoria 10:09:00 20:23:00 sherif Anderson 00 [facility] 2022-11-21 2022-11-22 Outpatient Cesilia [facility] [id number] 04:09:00 14:23:00 Ashish Lemus 00 2022-11-21 2022-11-22 Outpatient Cesilia [facility] [id number] 04:09:00 14:23:00 Ashish Seiji 00 2022-11-22 2022-11-22 Orders Doctor STEFANO 1.2.840.114 [id number] Univers 00:00:00 00:00:00 Only Unassigned, TRU 350.1.13.10 ity of [place] [facility] 4.2.7.2.686 Carlos as [phone] [address] 2022-11-22 2022-11-22 (TEL) STLMLC STLC [id number] Co mmon 00:00:00 00:00:00 [facility] 2022-11-13 2022-11-13 OFFICE STLMLC STLMLC [id number] Co mmon 00:00:00 00:00:00 VISIT [facility] LEVEL 4 [facility] 2022-11-01 2022-11-01 (TEL) STLC STLC [id number] Co mmon 00:00:00 00:00:00 [facility] 2022-09-29 2022-09-29 Inpatient NIC Sanderson, KAYCEEWU SUGL [id number] [facility] 11:00:00 11:00:[address] [facility] 2022-09-13 2022-09-13 ESTRELLA Dinh 2.16.840. 2.16.840.1. [facility] [id number] Devoted 20:30:00 21:00:00 Revisit: Valentín 1.163513. 598320.4.6. 2H3 Medical Gap 4.6.38199 [id number] Closure & 51495 Clinical Check-in 2022-09-05 2022-09-05 (TEL) [facility] [id number] Co mmon 00:00:00 00:00:00 [facility] 2022-08-05 2022-08-05 Emergency X PERRI SINCLAIR ERT [id number] Univers 12:20:00 15:34:00 CARLY dominique [facility] 2022-08-05 2022-08-05 Emergency PERRI Sinclair 1.2.840.114 [id number] Univers 12:20:00 15:34:00 Carly AMIN 350.1.13.10 [facility] 4.2.7.2.686 [facility] [id number] [facility] 084 Branch 2022-08-03 2022-08-03 [place] [id number] -[id number] Devoted 00:00:00 00:00:00 1103 Medica l Group 2022-07-27 2022-07-27 OFFICE STLMLC STLMLC [id number] Co mmon 00:00:00 00:00:00 VISIT [facility] - [facility] LEVEL 4 [facility] 2022-06-15 2022-06-15 OFFICE STLMLC STLMLC [id number] Co mmon 00:00:00 00:00:00 VISIT [facility] - [facility] LEVEL 4 [facility] 2022-06-12 2022-06-12 CAV Allegra 2.16.840. 2.16.840.1. [facility] [id number] Devoted 20:00:00 21:00:00 Valentín 1.165116. 514134.4.6. FE5 [facility] 4.6.05003 [id number] 2022-04-28 2022-04-28 Ambulatory nullFlavo MNA [id number] Memoria 19:00:00 19:00:00 Pre-Reg r Neurology 14 l Lana Carter 2022-04-28 2022-04-28 Outpatient FRANCESCO MAYA [id number] Memoria 14:00:00 14:00:00 14 l Raul 2022-04-28 2022-04-28 Outpatient PRUDENCIO GarciaMISCHER MHMISCHER [id number] 14:00:00 14:00:00 Jeffrey 14 Hollis 2022-04-14 2022-04-14 Outpatient Canales_M DMG [facility] [id number] Devoted 07:15:00 07:15:00 0715 Medica l Group 2021-12-15 2021-12-15 (TEL) STLMLC STLMLC [id number] Co mmon 00:00:00 00:00:00 [facility] 2021-12-08 2021-12-08 (TEL) STLMLC STLMLC [id number] Co mmon 00:00:00 00:00:00 [facility] 2021-11-29 2021-11-29 OL DIG E/M STLMLC STLMLC [id number] Common 00:00:00 00:00:00 SVC 5-10 Spiri t [facility] 2021-11-21 2021-11-21 (TEL) STLMLC STLMLC [id number] Co mmon 00:00:00 00:00:00 [facility] 2021-11-02 2021-11-03 Outpatient nullFlavo MNA [id number] Memoria 19:30:00 05:59:59 r Neurology 13 l Lana Anderson 2021-11-02 2021-11-02 Outpatient GOSIA GarciaSCHANJEL ELISESCHER [id number] 13:30:00 23:59:59 Jeffrey 13 Hollis 2021-11-02 2021-11-02 Ambulatory nullFlavo MNA [id number] Memoria 19:00:00 19:00:00 Pre-Reg r Neurology 12 l [place] [facility] 2021-11-02 2021-11-02 Outpatient MHIE MHIE [id number] Memoria 13:30:00 13:30:00 13 l Raul 2021-11-02 2021-11-02 Outpatient MHIE MHIE [id number] Memoria 13:00:00 13:00:00 12 lavelle Anderson 2021-11-02 2021-11-02 Outpatient YURIDIA GarciaMISCHER [id number] 13:00:00 13:00:00 Ejffrey 12 Hollis 2021-10-26 2021-10-26 (TEL) STLMLC STLMLC [id number] Co mmon 00:00:00 00:00:00 [facility] 2021-10-17 2021-10-17 OFFICE STLMLC STLMLC [id number] Co mmon 00:00:00 00:00:00 VISIT [facility] LEVEL 4 [facility] 2021-10-03 2021-10-03 ESTRELLA Dinh 2.16.840. 2.16.840.1. [facility] [id number] Devoted 20:00:00 21:30:00 Valentín 1.134254. 089906.4.6. [facility] 4.6.55767 [id number] 2021-08-29 2021-08-29 Outpatient Canales_M DMG DMG [id number] -[id number] Devoted 12:42:00 12:42:00 1129 Medica l Group 2021-06-28 2021-06-28 Ambulatory nullFlavo MNA [id number] Memoria 19:00:00 19:00:00 Pre-Reg r Neurology 11 l [place] Raul 2021-06-28 2021-06-28 Outpatient MHIE MHIE [id number] Memoria 14:00:00 14:00:00 11 l Anderson 2021-06-28 2021-06-28 Outpatient PRUDENCIO GarciaMISCHER MISCHER [id number] 14:00:00 14:00:00 Jeffrey Shafer 2021-05-16 2021-05-16 Outpatient STLMLC STLMLC [id number] Common 00:00:00 00:00:00 [facility] 2021-05-10 2021-05-10 Outpatient STLMLC STLMLC [id number] Common 00:00:00 00:00:00 [facility] 2021-04-12 2021-04-12 Outpatient STLMLC STLMLC [id number] Common 00:00:00 00:00:00 [facility] 2021-03-28 2021-03-28 Outpatient Olivia-Mbayo VFP VFP [id number] [facility]-202 [facility] 05:32:00 05:32:00 _A_AH 72084 Family Practic e 2021-03-28 2021-03-28 (TEL) STLMLC STLMLC [id number] Co mmon 00:00:00 00:00:00 [facility] 2021-03-07 2021-03-07 Outpatient STLMLC STLMLC [id number] Common 00:00:00 00:00:00 [facility] 2021-02-08 2021-02-08 Outpatient STLMLC STLMLC [id number] Common 00:00:00 00:00:00 [facility] 2021-01-28 2021-01-30 Outside nullFlavo MNA [id number] Memoria 14:05:24 04:59:59 Medical r Neurology 01 l Records Lana Carter 2021-01-28 2021-01-29 Outpatient MHMISCHER MHMISCHER [id number] 09:05:24 23:59:59 01 2021-01-18 2021-01-18 Outpatient Olivia-Mbayo VF VF [id number] [place] [address] 01:43:00 01:43:00 _A_AH 62218 Family Practic e 2021-01-14 2021-01-14 Outpatient Canales_M DMG [facility] [id number] Devoted 05:20:00 05:20:00 0416 Medica l Group 2021-01-14 2021-01-14 Caitlyn BAEZA MA - [id number] D evoted 00:00:00 00:00:00 Radha Choudhurya l [facility] PATIENT CASE MANAGER: [address] [address], [address], [place] [address] , Ph. 2021-01-14 2021-01-14 Outpatient Jerez, DMG [facility] [id number] 00:00:00 00:00:00 Caitlyn [id number] Radha [id number] 2021-01-13 2021-01-13 Outpatient Canales_M DMG SHIRA [id number] Devoted 05:35:00 05:35:00 0415 Medica l Group 2021-01-12 2021-01-12 Outpatient Canales_M DMG DMG [id number] Devoted 04:16:00 04:16:00 0414 Medica l Group 2020-12-24 2020-12-25 Outpatient nullFlavo MNA [id number] Memoria 18:45:00 04:59:59 r Neurology 10 l Lana Carter 2020-12-24 2020-12-24 Outpatient GOSIA GarciaSCHER MHMISCHER [id number] 13:45:00 23:59:59 Jeffrey Shafer 2020-12-24 2020-12-24 Outpatient MHIE MHIE [id number] Memoria 13:45:00 13:45:00 10 lavelle Carter 2020-12-09 2020-12-09 Outpatient STLMLC STLMLC [id number] Common 00:00:00 00:00:00 [facility] 2020-12-09 2020-12-09 Outpatient STLMLC STLMLC [id number] Common 00:00:00 00:00:00 [facility] 2020-11-30 2020-11-30 Outpatient STLMLC STLMLC [id number] Common 00:00:00 00:00:00 [facility] 2020-11-23 2020-11-25 Outside nullFlavo MNA [id number] Memoria 17:49:36 05:59:59 Medical r Neurology 00 l Records Lana Anderson 2020-11-23 2020-11-24 Outpatient MHMISCHER MHMISCHER [id number] 11:49:36 23:59:59 2020-10-28 2020-10-28 Outpatient STLMLC STLMLC [id number] Common 00:00:00 00:00:00 [facility] 2020-10-25 2020-10-25 Outpatient STLMLC STLMLC [id number] Common 00:00:00 00:00:00 [facility] 2020-10-11 2020-10-11 Ambulatory nullFlavo MNA [id number] Memoria 21:15:00 21:15:00 Pre-Reg r Neurology 09 l Lana Carter 2020-10-11 2020-10-11 Outpatient MHIE MHIE [id number] Memoria 15:15:00 15:15:00 09 lavelle CunhaAnderson 2020-10-11 2020-10-11 Outpatient PRUDENCIO GarciaMISCHER MHMISCHER [id number] 15:15:00 15:15:00 Jeffrey 09 Hollis 2020-09-29 2020-09-29 Outpatient STLMLC STLMLC [id number] Common 00:00:00 00:00:00 [facility] 2020-09-05 2020-09-06 Observatio nullFlavo [facility] [id number] Memoria 02:36:00 21:43:00 sherif r Raul 40 lavelle [facility] 2020-09-04 2020-09-06 Outpatient Nae [facility] [id number] 20:36:00 15:43:00 Vincent Sage 2020-09-04 2020-09-04 Outpatient Nae [facility] [id number] 20:36:00 20:36:00 Vincent Sage 2020-08-24 2020-08-24 Ambulatory nullFlavo MNA [id number] Memoria 19:15:00 19:15:00 Pre-Reg r Neurology 08 l [facility] 2020-08-24 2020-08-24 Outpatient MHIE MHIE [id number] Memoria 13:15:00 13:15:00 08 [facility] 2020-08-24 2020-08-24 Outpatient YURIDIA Garcia MHMISCHER [id number] 13:15:00 13:15:00 Jeffrey 08 [facility] 2020-06-28 2020-06-28 Emergency [facility] [id number] 11:51:00 15:02:00 Sariah S [place] 350.1.13.10 [place] 4.2.7.2.686 Seth [id number] [facility] 2020-06-28 2020-06-28 Emergency [facility] [id number] [facility] 11:51:00 15:02:00 Sariah S [place]on 350.1.13.10 i ty [facility] [place] 4.[address] [place] [id number] 2020-05-25 2020-05-26 Outpatient nullFlavo MNA [id number] Memoria 18:45:00 04:59:59 r Neurology 07 l [facility] 2020-05-25 2020-05-25 Outpatient GOSIA GarciaSCHANJEL MHMISCHER [id number] 13:45:00 23:59:59 Jeffrey 07 [place] 2020-05-25 2020-05-25 Outpatient MHIE MHIE [id number] [facility] 13:45:00 13:45:00 07 [facility] 2020-03-30 2020-03-30 Ambulatory nullFlavo MNA [id number] Memoria 20:15:00 20:15:00 Pre-Reg r Neurology 05 l Lana [place] 2020-03-30 2020-03-30 Outpatient MHIE MHIE [id number] Memoria 15:15:00 15:15:00 05 lavelle [place] 2020-03-30 2020-03-30 [id number] 15:15:00 15:15:00 Jeffrey 05 [place] 2020-03-24 2020-03-25 Outpatient nullFlavo MNA [id number] Memoria 14:00:00 04:59:59 r Neurology 06 l Lana [place] 2020-03-24 2020-03-24 Outpatient JosePRUDENCIOMISCHER MHMISCHER [id number] 09:00:00 23:59:59 Jeffrey 06 [place] 2020-03-24 2020-03-24 Outpatient MHIE MHIE [id number] [facility]oria 09:00:00 09:00:00 06 l [place] 2020-02-19 2020-02-19 Emergency [facility], [facility] [id number] 14:18:56 16:04:00 Maria Luisa Amin [id number] [place] [address] [place] [address] [id number] [facility] 2020-02-19 2020-02-19 Emergency [facility], [facility] [id number] [facility] 14:18:56 16:04:00 Maria Luisa Amin 350.1.13.10 ity [facility] 4.2.7.2.686 [facility] [id number] [address] 2019-12-11 2019-12-11 Outpatient Olivia-Mbayo VFP VFP [id number] [facility] 06:48:00 06:48:00 _A_AH [id number] Family Practic e 2019-12-11 2019-12-11 Outpatient Olivia-Mbayo VFP VFP [id number] [facility] 06:48:00 06:48:00 _A_AH [id number] Family Practic e 2019-12-09 2019-12-10 Emergency [place], [facility] [id number] 21:28:34 00:05:00 Timi Amin [id number] [place] [id number] Seth [id number] [facility] 2019-12-09 2019-12-10 [facility] [id number] Univers 21:28:34 00:05:00 Timi Amin [id number] [facility] [place] [id number] [facility] [phone] [place] [id number] [place] 2019-12-09 2019-12-10 [facility] [id number] [facility] 21:28:34 00:05:00 TIMI dominique [facility] 2019-11-19 2019-11-19 Outpatient Olivia-Echoo [facility] [id number] [facility] 07:16:00 07:16:00 _A_ [id number] Family Practic e 2019-09-16 2019-09-16 Ambulatory nullFlavo MNA [id number] Mem[facility] 21:00:00 21:00:00 Pre-Reg r Neurology 04 lavelle Carter 2019-09-16 2019-09-16 Outpatient MHIE MHIE [id number] [facility] 15:00:00 15:00:00 04 lavelle Anderson 2019-09-16 2019-09-16 Outpatient GOSIA GarciaSCHANJEL MHMISCHER [id number] 15:00:00 15:00:00 Jeffrey 04 Hollis 2019-07-24 2019-07-25 Outpatient nullFlavo MNA [id number] Memoria 19:15:00 04:59:59 r Neurology 03 lavelle Carter 2019-07-24 2019-07-24 Outpatient GOSIA GarciaSCHANJEL MHMISCHER [id number] 14:15:00 23:59:59 Jeffrey 03 Hollis 2019-07-24 2019-07-24 Outpatient MHIE MHIE [id number] [facility]oria 14:15:00 14:15:00 03 lavelle Carter 2019-05-21 2019-05-22 Outpatient nullFlavo MNA [id number] Mem[facility] 19:30:00 04:59:59 r Neurology 02 l Lana Carter 2019-05-21 2019-05-21 Outpatient GOSIA GarciaSCHANJEL MHMISCHER [id number] 14:30:00 23:59:59 Jeffrey 02 Hollis 2019-05-21 2019-05-21 Outpatient FRANCESCO MAYA [id number] Memoria 14:30:00 14:30:00 02 lavelle Carter 2019-03-21 2019-03-22 Outpatient Mary HENDRICKSON [id number] Memoria 19:30:00 04:59:59 r Neurology 01 lavelle Carter 2019-03-21 2019-03-21 Outpatient YURIDIA Garcia [facility] [id number] 14:30:00 23:59:59 Jeffrey 01 Hollis 2019-03-21 2019-03-21 Outpatient FRANCESCO MAYA [id number] Memoria 14:30:00 14:30:00 01 lavelle Anderson 2019-02-21 2019-02-22 Outpatient Mary HENDRICKSON [id number] Memoria 20:00:00 04:59:59 r Neurology 00 l Lana Anderson 2019-02-21 2019-02-21 Outpatient YURIDIA Garcia [id number] 15:00:00 23:59:59 Jeffrey 00 Hollis Results Test Description Test Time Test Comments Results Result Comments Source POINT OF CARE 2023-07-20 21:15:00 Test Item Value Reference Range Interpretation Comme nts Glucose POC (test code = Glucose POC) 149 70-99 [facility]2023-10-20 21:15:00 Test Item Value Reference Range Interpretation Comments Gluc POC Comment 1 (test code Notified RN/MD = Gluc POC Comment 1) [facility] 14:29:40 Test Item Value Reference Range Interpretation [...] atelectasis. Matthias Marques MD On 07/20/2023 09:29:05; [id number] [facility]egnnxOMKTBVFRU4458-46-40 10:17:00 Test Item Value Reference Range Interpretation Comments Glucose Lvl (test code = Glucose Lvl) 135 70-99 [facility] CenterLzghufdXHGRFEKZK5830-57-99 10:17:00 Test Item Value Reference Range Interpretation Comments BUN (test code = BUN) 27 7-22 [facility] CenterCwefrvcMCIJWLHSQ2068-88-99 10:17:00 Test Item Value Reference Range Interpretation Comments Creatinine Lvl (test code = Creatinine 2.08 0.50-1.40 Lvl) [facility] CenterDirbyknUONTRASHM4266-75-63 10:17:00 Test Item Value Reference Range Interpretation Comments Sodium Lvl (test code = Sodium Lvl) 140 135-145 [facility] CenterNjcrojdRCOQKDIGR3763-84-68 10:17:00 Test Item Value Reference Range Interpretation Comments Potassium Lvl (test code = Potassium 4.2 3.5-5.1 Lvl) [facility] CenterFuleswgDIWZVLBWC3662-20-64 10:17:00 Test Item Value Reference Range Interpretation Comments Chloride Lvl (test code = Chloride Lvl) 100 95-109 [facility] CenterWwadlvcUWHVOPSKF0213-91-12 10:17:00 Test Item Value Reference Range Interpretation Comments CO2 (test code = CO2) 32 24-32 [facility] CenterEekldqjJSDIFRFCM1809-84-33 10:17:00 Test Item Value Reference Range Interpretation Comments Calcium Lvl (test code = Calcium Lvl) 8.5 8.5-10.5 [facility] CenterDxctulkALFDLGWHZ0468-72-97 10:17:00 Test Item Value Reference Range Interpretation Comments AGAP (test code = AGAP) 12.2 10.0-20.0 [facility] CenterGtgcufaAZCKGRUPI3685-93-32 10:17:00 Test Item Value Reference Range Interpretation Comments eGFR (test code = eGFR) 24 [facility] CenterRzhbefeOSWMDMIKZ2182-25-59 10:17:00 Test Item Value Reference Range Interpretation Comments Magnesium Lvl (test code = Magnesium 2.2 1.8-2.4 Lvl) [facility] CenterCsmamxcFDJPVIIRR2102-38-36 10:17:00 Test Item Value Reference Range Interpretation Comments Phosphorus (test code = Phosphorus) 4.1 2.5-4.5 [facility] CenterXhmwjslCLVTGNFWL2823-88-25 10:17:00 Test Item Value Reference Range Interpretation Comments Digoxin Lvl (test code = Digoxin Lvl) 2.1 0.8-2.0 [facility]ukBWWSIVRYFS1396-60-18 10:17:00 Test Item Value Reference Range Interpretation Comments RBC Morph (test code = Normal (07/20/23 5:17 RBC Morph) AM) [facility]fieldKlnloxlQOFURQKWSG1140-32-72 10:17:00 Test Item Value Reference Range Interpretation Comments Plt Morph (test code = Normal (07/20/23 5:17 Plt Morph) AM) [facility]fieldXsmeqcpDJEPFCHBHE2321-66-35 10:17:00 Test Item Value Reference Range Interpretation Comments Segs (test code = Segs) 64.5 45.0-75.0 [facility]fieldHrbytqqFVRLHRCTSW8120-55-42 10:17:00 Test Item Value Reference Range Interpretation Comments Lymphocytes (test code = Lymphocytes) 22.2 20.0-40.0 [facility]fieldNampwcuJGRNRQDOII0359-95-79 10:17:00 Test Item Value Reference Range Interpretation Comments Monocytes (test code = Monocytes) 9.7 2.0-12.0 [facility]fieldBbouutcOPGZYFLGLB4103-45-88 10:17:00 Test Item Value Reference Range Interpretation Comments Eosinophils (test code = Eosinophils) 3.1 <=4.0 [facility]fieldVxyfmleCFZURSZSTR5459-09-69 10:17:00 Test Item Value Reference Range Interpretation Comments Basophils (test code = Basophils) 0.5 <=1.0 [facility]fieldDoxlgjnBTFJHBJYAY8664-03-83 10:17:00 Test Item Value Reference Range Interpretation Comments Neutrophils # (test code = Neutrophils 6.3 1.5-8.1 #) [facility] MansfieldZgvxeglEPMMCVRKSF7401-59-85 10:17:00 Test Item Value Reference Range Interpretation Comments Lymphocytes # (test code = Lymphocytes 2.2 1.0-5.5 #) [facility]fieldEqtoltqFSWTYVKZSI8256-23-40 10:17:00 Test Item Value Reference Range Interpretation Comments Monocytes # (test code = Monocytes #) 0.9 <=0.8 [facility]fieldUdkterwXJOLYINBQB2984-24-98 10:17:00 Test Item Value Reference Range Interpretation Comments Eosinophils # (test code = Eosinophils 0.3 <=0.5 #) [facility]fieldJwnuykhGZOYVZBTSZ5577-13-20 10:17:00 Test Item Value Reference Range Interpretation Comments Basophils # (test code = Basophils #) 0.1 <=0.2 [facility]fieldPdnbacvMJHBSHAXPD7813-59-56 10:17:00 Test Item Value Reference Range Interpretation Comments WBC (test code = WBC) 9.7 3.7-10.4 [facility]fieldYkkrijaURUQCHLGLC7346-27-50 10:17:00 Test Item Value Reference Range Interpretation Comments RBC (test code = RBC) 3.83 4.20-5.40 [facility]fieldTfyjwrpEZZAJVDIIS2223-39-33 10:17:00 Test Item Value Reference Range Interpretation Comments Hgb (test code = Hgb) 10.3 12.0-16.0 [facility]fieldTbwosiaZNPGCSQEQQ9972-80-14 10:17:00 Test Item Value Reference Range Interpretation Comments Hct (test code = Hct) 32.5 36.0-48.0 [facility]fieldWimppueNOIDTONDXR8888-90-49 10:17:00 Test Item Value Reference Range Interpretation Comments MCV (test code = MCV) 84.8 80.0-98.0 [facility]fieldLkzcusjIIZFIZUJLM6511-09-62 10:17:00 Test Item Value Reference Range Interpretation Comments MCH (test code = MCH) 27.0 pg 27.0-31.0 [facility] MansfieldDaveabfTRORSQLSGP9471-54-89 10:17:00 Test Item Value Reference Range Interpretation Comments MCHC (test code = MCHC) 31.8 32.0-36.0 [facility]fieldXwrbjhjZBGAICLCCG8854-19-90 10:17:00 Test Item Value Reference Range Interpretation Comments RDW (test code = RDW) 16.4 11.5-14.5 [facility]fieldSuaagcbEPWNFJZDSE7574-77-37 10:17:00 Test Item Value Reference Range Interpretation Comments Platelet (test code = Platelet) 268 133-450 [facility]fieldNpskcjpPVPBETEPXQ3644-77-87 10:17:00 Test Item Value Reference Range Interpretation Comments MPV (test code = MPV) 7.5 7.4-10.4 [place] 55685023-10-19 08:53:53 Test Item Value Reference Range Interpretation [...] bibasilar atelectasis.Hollis Cosme MD On 07/19/2023 03:52:53; [id number] [facility]SgjecfmWXLJYXDTYD8688-97-05 00:53:00 Test Item Value Reference Range Interpretation Comments PT (test code = PT) 14.6 s 12.0-14.7 [facility] HospitalGjkripdFFXUCTGRZR4184-48-68 00:53:00 Test Item Value Reference Range Interpretation Comments INR (test code = INR) 1.14 1 0.85-1.17 [facility] HospitalCaepccyBSZRYOUFR7599-53-25 09:16:00 Test Item Value Reference Range Interpretation Comments Vancomycin AUC (test code = Vancomycin 22.9 AUC) [facility]: Zgyqc9915-47-84 20:59:00 Test Item Value Reference Range Interpretation Comments Culture: Blood (test code No Growth At 5 Days = Culture: Blood) [facility] [id number] 11:24:00 Test Item Value Reference Range Interpretation Comments Glucose Lvl (test code = Glucose Lvl) 78 70-99 [facility] FKFGK5736-32-37 11:24:00 Test Item Value Reference Range Interpretation Comments BUN (test code = BUN) 26 7-22 [facility] KHCPJ0712-93-10 11:24:00 Test Item Value Reference Range Interpretation Comments Creatinine Lvl (test code = Creatinine 1.59 0.50-1.40 Lvl) [facility]2023-10-16 11:24:00 Test Item Value Reference Range Interpretation Comments Sodium Lvl (test code = Sodium Lvl) 138 135-145 [facility]2023-10-16 11:24:00 Test Item Value Reference Range Interpretation Comments Potassium Lvl (test code = Potassium 3.8 3.5-5.1 Lvl) [place] 628293-10-16 11:24:00 Test Item Value Reference Range Interpretation Comments Chloride Lvl (test code = Chloride Lvl) 100 95-109 [place] 628293-10-16 11:24:00 Test Item Value Reference Range Interpretation Comments CO2 (test code = CO2) 32 24-32 [place] 628293-10-16 11:24:00 Test Item Value Reference Range Interpretation Comments Calcium Lvl (test code = Calcium Lvl) 8.5 8.5-10.5 [place] 628293-10-16 11:24:00 Test Item Value Reference Range Interpretation Comments AGAP (test code = AGAP) 9.8 10.0-20.0 [place] 628293-10-16 11:24:00 Test Item Value Reference Range Interpretation Comments eGFR (test code = eGFR) 33 [place] 036823-10-16 11:24:00 Test Item Value Reference Range Interpretation Comments WBC (test code = WBC) 7.7 3.7-10.4 [place] [address]-10-16 11:24:00 Test Item Value Reference Range Interpretation Comments RBC (test code = RBC) 3.24 4.20-5.40 [place] [address]-10-16 11:24:00 Test Item Value Reference Range Interpretation Comments Hgb (test code = Hgb) 8.7 12.0-16.0 [place] [address]-10-16 11:24:00 Test Item Value Reference Range Interpretation Comments Hct (test code = Hct) 27.2 36.0-48.0 [place] [address]-10-16 11:24:00 Test Item Value Reference Range Interpretation Comments MCV (test code = MCV) 84.0 80.0-98.0 [place] [address]-10-16 11:24:00 Test Item Value Reference Range Interpretation Comments MCH (test code = MCH) 27.0 pg 27.0-31.0 [facility]qxgedGPJWBSAVRA4287-31-83 11:24:00 Test Item Value Reference Range Interpretation Comments MCHC (test code = MCHC) 32.1 32.0-36.0 [place] 036823-10-16 11:24:00 Test Item Value Reference Range Interpretation Comments RDW (test code = RDW) 15.8 11.5-14.5 [facility]fieldIflpoaxZYHNCQRETY3602-35-30 11:24:00 Test Item Value Reference Range Interpretation Comments Platelet (test code = Platelet) 215 133-450 [facility]fieldFvpkxhtSFGWOHRLUA4801-39-85 11:24:00 Test Item Value Reference Range Interpretation Comments MPV (test code = MPV) 7.8 7.4-10.4 [facility]: [id number] 20:28:00 Test Item Value Reference Range Interpretation Comments Culture: Blood (test code No Growth At 5 Days = Culture: Blood) [facility]: Eqllm0874-71-89 20:14:00 Test Item Value Reference Range Interpretation Comments Culture: Blood (test code No Growth At 5 Days = Culture: Blood) [facility]2023-10-15 13:03:00 Test Item Value Reference Range Interpretation Comments Glucose Lvl (test code = Glucose Lvl) 75 70-99 [facility]2023-10-15 13:03:00 Test Item Value Reference Range Interpretation Comments BUN (test code = BUN) 21 7-22 [facility]2023-10-15 13:03:00 Test Item Value Reference Range Interpretation Comments Creatinine Lvl (test code = Creatinine 1.62 0.50-1.40 Lvl) [facility]2023-10-15 13:03:00 Test Item Value Reference Range Interpretation Comments Sodium Lvl (test code = Sodium Lvl) 139 135-145 [facility]2023-10-15 13:03:00 Test Item Value Reference Range Interpretation Comments Potassium Lvl (test code = Potassium 3.8 3.5-5.1 Lvl) [facility]2023-10-15 13:03:00 Test Item Value Reference Range Interpretation Comments Chloride Lvl (test code = Chloride Lvl) 103 95-109 [place] 628293-10-15 13:03:00 Test Item Value Reference Range Interpretation Comments CO2 (test code = CO2) 30 24-32 [facility] [id number] 13:03:00 Test Item Value Reference Range Interpretation Comments Calcium Lvl (test code = Calcium Lvl) 8.2 8.5-10.5 [place] 628293-10-15 13:03:00 Test Item Value Reference Range Interpretation Comments AGAP (test code = AGAP) 9.8 10.0-20.0 [place] 628293-10-15 13:03:00 Test Item Value Reference Range Interpretation Comments eGFR (test code = eGFR) 32 [facility]CxsvswfBDOITGHXOQ4700-69-48 13:03:00 Test Item Value Reference Range Interpretation Comments WBC (test code = WBC) 7.2 3.7-10.4 [place] 036823-10-15 13:03:00 Test Item Value Reference Range Interpretation Comments RBC (test code = RBC) 3.21 4.20-5.40 [place] 036823-10-15 13:03:00 Test Item Value Reference Range Interpretation Comments Hgb (test code = Hgb) 8.8 12.0-16.0 [facility]fieldJsyfclcVXAYHWHGHK8719-06-68 13:03:00 Test Item Value Reference Range Interpretation Comments Hct (test code = Hct) 26.8 36.0-48.0 [place] 036823-10-15 13:03:00 Test Item Value Reference Range Interpretation Comments MCV (test code = MCV) 83.5 80.0-98.0 [place] [address]-10-15 13:03:00 Test Item Value Reference Range Interpretation Comments MCH (test code = MCH) 27.5 pg 27.0-31.0 [place] [address]-10-15 13:03:00 Test Item Value Reference Range Interpretation Comments MCHC (test code = MCHC) 32.9 32.0-36.0 [place] [address]-10-15 13:03:00 Test Item Value Reference Range Interpretation Comments RDW (test code = RDW) 15.7 11.5-14.5 [place] 036823-10-15 13:03:00 Test Item Value Reference Range Interpretation Comments Platelet (test code = Platelet) 204 133-450 [facility]fieldSnvpbfnMHXGSPRJKT0281-67-70 13:03:00 Test Item Value Reference Range Interpretation Comments MPV (test code = MPV) 7.9 7.4-10.4 [facility] HospitalVuflfexJDOKVNQBTJ8491-17-32 13:03:00 Test Item Value Reference Range Interpretation Comments Vancomycin AUC (test code = Vancomycin 17.4 AUC) [facility]2023-10-14 12:23:00 Test Item Value Reference Range Interpretation Comments Glucose Lvl (test code = Glucose Lvl) 80 70-99 [facility]2023-10-14 12:23:00 Test Item Value Reference Range Interpretation Comments BUN (test code = BUN) 22 7-22 [place] 628293-10-14 12:23:00 Test Item Value Reference Range Interpretation Comments Creatinine Lvl (test code = Creatinine 1.73 0.50-1.40 Lvl) [facility]2023-10-14 12:23:00 Test Item Value Reference Range Interpretation Comments Sodium Lvl (test code = Sodium Lvl) 138 135-145 [facility]2023-10-14 12:23:00 Test Item Value Reference Range Interpretation Comments Potassium Lvl (test code = Potassium 3.4 3.5-5.1 Lvl) [facility]2023-10-14 12:23:00 Test Item Value Reference Range Interpretation Comments Chloride Lvl (test code = Chloride Lvl) 102 95-109 [facility]2023-10-14 12:23:00 Test Item Value Reference Range Interpretation Comments CO2 (test code = CO2) 33 24-32 [place] 628293-10-14 12:23:00 Test Item Value Reference Range Interpretation Comments Calcium Lvl (test code = Calcium Lvl) 8.3 8.5-10.5 [place] 628293-10-14 12:23:00 Test Item Value Reference Range Interpretation Comments AGAP (test code = AGAP) 6.4 10.0-20.0 [facility]2023-10-14 12:23:00 Test Item Value Reference Range Interpretation Comments eGFR (test code = eGFR) 30 [place] 036823-10-14 12:23:00 Test Item Value Reference Range Interpretation Comments WBC (test code = WBC) 7.5 3.7-10.4 [facility]fieldUxunvemAWJSRYXNYE7900-10-20 12:23:00 Test Item Value Reference Range Interpretation Comments RBC (test code = RBC) 3.19 4.20-5.40 [facility]fieldDmmzvqpUWMZLRLQRV5092-63-65 12:23:00 Test Item Value Reference Range Interpretation Comments Hgb (test code = Hgb) 8.8 12.0-16.0 [facility]fieldXnijcbxOBQUALOXNP0465-45-32 12:23:00 Test Item Value Reference Range Interpretation Comments Hct (test code = Hct) 27.1 36.0-48.0 [facility]fieldThlzhcgHJBQRIEEMI2761-36-64 12:23:00 Test Item Value Reference Range Interpretation Comments MCV (test code = MCV) 85.0 80.0-98.0 [facility]fieldMmctlrsMKYANFYUKV6746-73-45 12:23:00 Test Item Value Reference Range Interpretation Comments MCH (test code = MCH) 27.8 pg 27.0-31.0 [facility]fieldOfuhabkZNINWXNPUN3686-54-14 12:23:00 Test Item Value Reference Range Interpretation Comments MCHC (test code = MCHC) 32.7 32.0-36.0 [facility]fieldEyoeeelYSJVYPTJDA5304-88-86 12:23:00 Test Item Value Reference Range Interpretation Comments RDW (test code = RDW) 16.1 11.5-14.5 [facility]fieldCejtggeRRJNIKDSIO3037-29-52 12:23:00 Test Item Value Reference Range Interpretation Comments Platelet (test code = Platelet) 186 133-450 [facility]fieldLeppoxmDOCNCJDGUY0221-50-58 12:23:00 Test Item Value Reference Range Interpretation Comments MPV (test code = MPV) 8.1 7.4-10.4 [facility] HospitalBijkojvFKLVXN5608-79-63 12:01:06 Test Item Value Reference Range Interpretation [...] seen. Epifanio Mejia MD On 07/13/2023 07:00:40; [id number] [facility] [employer] [id number] 11:04:00 Test Item Value Reference Range Interpretation Comments Total Protein (test code = Total 6.2 6.4-8.4 Protein) [facility] [employer] [id number] 11:04:00 Test Item Value Reference Range Interpretation Comments Albumin Lvl (test code = Albumin Lvl) 2.5 3.5-5.0 [facility] [employer]2023-10-13 11:04:00 Test Item Value Reference Range Interpretation Comments ALT (test code = ALT) 14 <=65 [facility]2023-10-13 11:04:00 Test Item Value Reference Range Interpretation Comments AST (test code = AST) 14 <=37 [facility]2023-10-13 11:04:00 Test Item Value Reference Range Interpretation Comments Alk Phos (test code = Alk Phos) 96 39-136 [facility]2023-10-13 11:04:00 Test Item Value Reference Range Interpretation Comments Bili Total (test code = Bili Total) 0.4 0.2-1.3 [facility]2023-10-13 11:04:00 Test Item Value Reference Range Interpretation Comments B/C Ratio (test code = B/C Ratio) 12 1 6-25 [facility]2023-10-13 11:04:00 Test Item Value Reference Range Interpretation Comments Globulin (test code = Globulin) 3.7 2.7-4.2 [facility]2023-10-13 11:04:00 Test Item Value Reference Range Interpretation Comments A/G Ratio (test code = A/G Ratio) 0.7 1 0.7-1.6 [facility]2023-10-13 11:04:00 Test Item Value Reference Range Interpretation Comments Magnesium Lvl (test code = Magnesium 2.1 1.8-2.4 Lvl) [facility]jvhjcSXYEGFKSK9149-76-31 11:04:00 Test Item Value Reference Range Interpretation Comments Total Protein (test code = Total 6.2 6.4-8.4 Protein) [facility] CenterGqlifqfLXWINCIMA9319-77-97 11:04:00 Test Item Value Reference Range Interpretation Comments Albumin Lvl (test code = Albumin Lvl) 2.5 3.5-5.0 [facility] CenterGxzxeqyQGOKDDXUA0407-20-97 11:04:00 Test Item Value Reference Range Interpretation Comments ALT (test code = ALT) 14 <=65 [facility] CenterHfxgpfgEEAWFFWSV5645-99-75 11:04:00 Test Item Value Reference Range Interpretation Comments AST (test code = AST) 14 <=37 [place] 533773-10-13 11:04:00 Test Item Value Reference Range Interpretation Comments Alk Phos (test code = Alk Phos) 96 39-136 [place] [address]-10-13 11:04:00 Test Item Value Reference Range Interpretation Comments Bili Total (test code = Bili Total) 0.4 0.2-1.3 [facility] HospitalLyhdeekIKIYKDAVO8627-37-43 11:04:00 Test Item Value Reference Range Interpretation Comments B/C Ratio (test code = B/C Ratio) 12 1 6-25 [facility] HospitalWshopqxDTYVVIISD4596-93-00 11:04:00 Test Item Value Reference Range Interpretation Comments Globulin (test code = Globulin) 3.7 2.7-4.2 [facility] HospitalPcorujmGLFGNMFJL1788-17-95 11:04:00 Test Item Value Reference Range Interpretation Comments A/G Ratio (test code = A/G Ratio) 0.7 1 0.7-1.6 [facility] HospitalWglroadRKETTFAOTN0431-84-66 11:04:00 Test Item Value Reference Range Interpretation Comments Segs (test code = Segs) 78.8 45.0-75.0 [facility] HospitalTomhkehJFLWEOYIST0089-51-57 11:04:00 Test Item Value Reference Range Interpretation Comments Lymphocytes (test code = Lymphocytes) 6.9 20.0-40.0 [facility] HospitalLayktpwSDGTWRJHLF4329-88-76 11:04:00 Test Item Value Reference Range Interpretation Comments Monocytes (test code = Monocytes) 13.6 2.0-12.0 [facility] HospitalScoyffpKNMSBMQBGR0859-28-23 11:04:00 Test Item Value Reference Range Interpretation Comments Eosinophils (test code = Eosinophils) 0.3 <=4.0 [facility] HospitalIkomvayJLAFFJEBSN8009-59-53 11:04:00 Test Item Value Reference Range Interpretation Comments Basophils (test code = Basophils) 0.4 <=1.0 [facility] HospitalEgcyrtmDRUIXJUGOG2367-15-54 11:04:00 Test Item Value Reference Range Interpretation Comments Neutrophils # (test code = Neutrophils 8.2 1.5-8.1 #) [facility] HospitalAykobmdCRARYKNLOB7785-62-86 11:04:00 Test Item Value Reference Range Interpretation Comments Lymphocytes # (test code = Lymphocytes 0.7 1.0-5.5 #) [facility] HospitalFraebviAFALWUFKPC8105-46-32 11:04:00 Test Item Value Reference Range Interpretation Comments Monocytes # (test code = Monocytes #) 1.4 <=0.8 [facility] HospitalannBACTERIAL - [id number] 23:41:00 Test Item Value Reference Range Interpretation Comments Source Strep (test code Urine *NA*(07/12/23 = Source Strep) 6:41 PM) [facility] HospitalannBACTERIAL - [id number] 23:41:00 Test Item Value Reference Range Interpretation Comments Strep pneumoniae Ag Negative (07/12/23 (test code = Strep 6:41 PM) pneumoniae Ag) [facility] Mjnqbj8398-18-43 19:18:00 Test Item Value Reference Range Interpretation Comments Gram Stain Report Gram Stain Performed By: (test code = Gram [facility] Stain Report) [facility] Respiratory w/Gram [id number] 19:18:00 Test Item Value Reference Range Interpretation Comments Culture: Respiratory Many Moraxella w/Gram Stain (test code catarrhalis Beta = Culture: Respiratory Lactamase Positive w/Gram Stain) [facility] vexlzvktgzy9822-09-51 19:18:00 Test Item Value Reference Range Interpretation Comments Moraxella catarrhalis Moraxella catarrhalis (test code = Moraxella catarrhalis) [facility] HospitalGram Upksk1117-83-29 19:18:00 Test Item Value Reference Range Interpretation Comments Gram Stain (test Less Than 25 Squamous code = Gram Stain) Epithelial Cells/Lpf Many WBC's Seen Moderate Gram Positive Rods Moderate Gram Positive Cocci In Chains Good Quality Specimen [facility] HospitalDuuuojuRFBFCH5526-95-48 11:58:16 Test Item Value Reference Range Interpretation [...] facet arthropathy.Hollis Wolff MD On 07/12/2023 06:57:09; [id number] [facility]2023-10-12 11:47:00 Test Item Value Reference Range Interpretation Comments Procalcitonin Lvl (test code = 0.11 <=0.10 Procalcitonin Lvl) [facility]UPBTPUUIV3977-77-67 11:47:00 Test Item Value Reference Range Interpretation Comments Procalcitonin Lvl (test code = 0.11 <=0.10 Procalcitonin Lvl) [facility]UblydzxICISSBIPMJ7720-15-65 11:47:00 Test Item Value Reference Range Interpretation Comments D-Dimer (test code = D-Dimer) 2.37 [facility]fieldDnvsrhrTRWPXQTCPG5019-65-68 11:47:00 Test Item Value Reference Range Interpretation Comments D-Dimer (test code = D-Dimer) 2.37 [facility] HospitalDeikxtxAXSCXZLYDT9129-99-10 11:47:00 Test Item Value Reference Range Interpretation Comments Coronavirus (COVID-19) Not Detected JONATHAN (test code = 10(07/12/23 6:47 AM) Coronavirus (COVID-19) JONATHAN) [facility] HospitalIjmpyekNADVFRYXLK8561-88-03 11:47:00 Test Item Value Reference Range Interpretation Comments Coronavirus (COVID-19) Not Detected JONATHAN (test code = 8(07/12/23 6:47 AM) Coronavirus (COVID-19) JONATHAN) [facility] HospitalCulture: Pycqr2875-46-75 11:45:00 Test Item Value Reference Range Interpretation Comments Culture: Blood (test code No Growth At 5 Days = Culture: Blood) [facility] HYWPCFFZKQ8144-68-79 11:30:00 Test Item Value Reference Range Interpretation Comments S. aureus (test code = Not Detected (07/12/23 S. aureus) 6:30 AM) [facility] CHRDYFQEZG3592-46-81 11:30:00 Test Item Value Reference Range Interpretation Comments S. epidermidis (test Not Detected code = S. epidermidis) (07/12/23 6:30 AM) [facility] WSNMWEIKGV7915-78-66 11:30:00 Test Item Value Reference Range Interpretation Comments S. lugdunensis (test Not Detected code = S. lugdunensis) (07/12/23 6:30 AM) [facility] DQHVTXKJZD0751-67-97 11:30:00 Test Item Value Reference Range Interpretation Comments S. anginosus grp (test Not Detected (07/12/23 code = S. anginosus 6:30 AM) grp) [facility]2023-10-12 11:30:00 Test Item Value Reference Range Interpretation Comments S. agalactiae (test code Not Detected = S. agalactiae) (07/12/23 6:30 AM) [facility] EJUFSQCZMQ2478-01-54 11:30:00 Test Item Value Reference Range Interpretation Comments S. pneumoniae (test code Not Detected = S. pneumoniae) (07/12/23 6:30 AM) [place] [address]-10-12 11:30:00 Test Item Value Reference Range Interpretation Comments S. pyogenes (test code Not Detected (07/12/23 = S. pyogenes) 6:30 AM) [place] [address]-10-12 11:30:00 Test Item Value Reference Range Interpretation Comments E. faecalis (test code Detected = E. faecalis) *ABN*(07/12/23 6:30 AM) [place] [address]-10-12 11:30:00 Test Item Value Reference Range Interpretation Comments E. faecium (test code Not Detected (07/12/23 = E. faecium) 6:30 AM) [place] [address]-10-12 11:30:00 Test Item Value Reference Range Interpretation Comments Staphylococcus spp. (test Not Detected code = Staphylococcus (07/12/23 6:30 AM) spp.) [place] [address]-10-12 11:30:00 Test Item Value Reference Range Interpretation Comments Streptococcus spp. (test Not Detected code = Streptococcus (07/12/23 6:30 AM) spp.) [place] [address]-10-12 11:30:00 Test Item Value Reference Range Interpretation Comments Listeria spp. (test Not Detected (07/12/23 code = Listeria spp.) 6:30 AM) [place] [address]-10-12 11:30:00 Test Item Value Reference Range Interpretation Comments mecA Methicillin Not Detected Resistance (test code = (07/12/23 6:30 AM) mecA Methicillin Resistance) [place] [address]-10-12 11:30:00 Test Item Value Reference Range Interpretation Comments Gabriela Vancomycin Not Detected Resistance (test code = (07/12/23 6:30 AM) Gabriela Vancomycin Resistance) [place] [address]-10-12 11:30:00 Test Item Value Reference Range Interpretation Comments vanB Vancomycin Not Detected Resistance (test code = 2(07/12/23 6:30 AM) vanB Vancomycin Resistance) [place] [address]-10-12 11:30:00 Test Item Value Reference Range Interpretation Comments S. aureus (test code = Not Detected (07/12/23 S. aureus) 6:30 AM) [facility] [id number] 11:30:00 Test Item Value Reference Range Interpretation Comments S. epidermidis (test Not Detected code = S. epidermidis) (07/12/23 6:30 AM) [facility]2023-10-12 11:30:00 Test Item Value Reference Range Interpretation Comments S. lugdunensis (test Not Detected code = S. lugdunensis) (07/12/23 6:30 AM) [place] 993473-10-12 11:30:00 Test Item Value Reference Range Interpretation Comments S. anginosus grp (test Not Detected (07/12/23 code = S. anginosus 6:30 AM) grp) [facility]2023-10-12 11:30:00 Test Item Value Reference Range Interpretation Comments S. agalactiae (test code Not Detected = S. agalactiae) (07/12/23 6:30 AM) [facility]2023-10-12 11:30:00 Test Item Value Reference Range Interpretation Comments S. pneumoniae (test code Not Detected = S. pneumoniae) (07/12/23 6:30 AM) [facility]2023-10-12 11:30:00 Test Item Value Reference Range Interpretation Comments S. pyogenes (test code Not Detected (07/12/23 = S. pyogenes) 6:30 AM) [facility]2023-10-12 11:30:00 Test Item Value Reference Range Interpretation Comments E. faecalis (test code Detected = E. faecalis) *ABN*(07/12/23 6:30 AM) [facility]2023-10-12 11:30:00 Test Item Value Reference Range Interpretation Comments E. faecium (test code Not Detected (07/12/23 = E. faecium) 6:30 AM) [place] 993473-10-12 11:30:00 Test Item Value Reference Range Interpretation Comments Staphylococcus spp. (test Not Detected code = Staphylococcus (07/12/23 6:30 AM) spp.) [facility]2023-10-12 11:30:00 Test Item Value Reference Range Interpretation Comments Streptococcus spp. (test Not Detected code = Streptococcus (07/12/23 6:30 AM) spp.) [facility]2023-10-12 11:30:00 Test Item Value Reference Range Interpretation Comments Listeria spp. (test Not Detected (07/12/23 code = Listeria spp.) 6:30 AM) [facility]2023-10-12 11:30:00 Test Item Value Reference Range Interpretation Comments mecA Methicillin Not Detected Resistance (test code = (07/12/23 6:30 AM) mecA Methicillin Resistance) [facility]2023-10-12 11:30:00 Test Item Value Reference Range Interpretation Comments Gabriela Vancomycin Not Detected Resistance (test code = (07/12/23 6:30 AM) Gabriela Vancomycin Resistance) [facility]2023-10-12 11:30:00 Test Item Value Reference Range Interpretation Comments vanB Vancomycin Not Detected Resistance (test code = 3(07/12/23 6:30 AM) vanB Vancomycin Resistance) [facility]C:PT:ISOLATE:ORDQN:[id number] 11:30:00 Test Item Value Reference Range Interpretation Comments Culture: Blood ENTEROCOCCUS FAECALIS (test code = DETECTED by Verigene Culture: Blood) nucleic acid test. . Aerobic Bottle: Enteroccocus faecalis . Critical Results Called To: Joaquina AVILES @ [address] At: 07/13/2023 04:35 Called By: DV Read Back Ok [facility]:SUSC:PT:ISOLATE:ORDQN:[id number] 11:30:00 Test Item Value Reference Range Interpretation Comments Enteroccocus faecalis Enteroccocus faecalis (test code = Enteroccocus faecalis) [facility]TdjoaweOUAKJC8585-85-25 08:13:07 Test Item Value Reference Range Interpretation [...] sinusitis. Anatoly Tobin MD On 07/12/2023 03:12:16; [id number] [facility] HospitalZzeqpsmHMMWTM1291-70-79 08:08:06 Test Item Value Reference Range Interpretation [...] C6-C7. Anatoly Tobin MD On 07/12/2023 03:07:25; [id number] [facility] HospitalHagqrydFBVZXA2633-25-43 07:45:35 Test Item Value Reference Range Interpretation [...] atelectasis. Brigido Jameson MD On 07/12/2023 02:44:13; [id number] [facility] CenterFabbounPCHQDL8893-37-54 07:44:20 Test Item Value Reference Range Interpretation [...] process. Brigido Jameson MD On 07/12/2023 02:43:22; [id number] [facility]annCARD[facility] PAAAUFQ1067-47-74 07:40:00 Test Item Value Reference Range Interpretation Comments HS Troponin I (test code = HS Troponin 29 I) [facility]annCARDIAC EOEILRO7885-58-54 07:40:00 Test Item Value Reference Range Interpretation Comments BNP (test code = BNP) [address] [facility] HospitalXrqdlkmIAPLBBQDP7427-42-56 07:40:00 Test Item Value Reference Range Interpretation Comments HS Troponin I (test code = HS Troponin 29 I) [facility] HospitalXzqbclgZZFYQURTN8307-60-86 07:40:00 Test Item Value Reference Range Interpretation Comments BNP (test code = BNP) [address] [facility] HospitalIkokrjxDGCHSXHRJL2474-87-55 07:40:00 Test Item Value Reference Range Interpretation Comments Segs (test code = Segs) 82.4 45.0-75.0 [facility] HospitalDwjcaiaUAOZELGFSH1863-57-58 07:40:00 Test Item Value Reference Range Interpretation Comments Lymphocytes (test code = Lymphocytes) 6.0 20.0-40.0 [facility] HospitalWeugxhvPHTEMIISAV2250-32-37 07:40:00 Test Item Value Reference Range Interpretation Comments Monocytes (test code = Monocytes) 10.3 2.0-12.0 [facility] HospitalRkvogoqLPSSGFVUUZ2741-65-72 07:40:00 Test Item Value Reference Range Interpretation Comments Eosinophils (test code = Eosinophils) 0.8 <=4.0 [facility] HospitalVduiofiIHHVNKMJDB8320-16-41 07:40:00 Test Item Value Reference Range Interpretation Comments Basophils (test code = Basophils) 0.5 <=1.0 [facility] HospitalVjtjnluHBGAAIRLIP3923-48-55 07:40:00 Test Item Value Reference Range Interpretation Comments Neutrophils # (test code = Neutrophils 11.2 1.5-8.1 #) [place] [address]-10-12 07:40:00 Test Item Value Reference Range Interpretation Comments Lymphocytes # (test code = Lymphocytes 0.8 1.0-5.5 #) [place] [address]-10-12 07:40:00 Test Item Value Reference Range Interpretation Comments Monocytes # (test code = Monocytes #) 1.4 <=0.8 [place] [address]-10-12 07:40:00 Test Item Value Reference Range Interpretation Comments Eosinophils # (test code = Eosinophils 0.1 <=0.5 #) [place] [address]-10-12 07:40:00 Test Item Value Reference Range Interpretation Comments Basophils # (test code = Basophils #) 0.1 <=0.2 [place] [address]-02-28 09:49:00 Test Item Value Reference Range Interpretation Comments Glucose Lvl (test code = Glucose Lvl) 93 70-99 [place] 628293-02-28 09:49:00 Test Item Value Reference Range Interpretation Comments BUN (test code = BUN) 30 7-22 [place] [address]-02-28 09:49:00 Test Item Value Reference Range Interpretation Comments Creatinine Lvl (test code = Creatinine 2.50 0.50-1.40 Lvl) [place] 628293-02-28 09:49:00 Test Item Value Reference Range Interpretation Comments Sodium Lvl (test code = Sodium Lvl) 138 135-145 [place] [address]-02-28 09:49:00 Test Item Value Reference Range Interpretation Comments Potassium Lvl (test code = Potassium 5.1 3.5-5.1 Lvl) [place] [address]-02-28 09:49:00 Test Item Value Reference Range Interpretation Comments Chloride Lvl (test code = Chloride Lvl) 108 95-109 [place] [address]-02-28 09:49:00 Test Item Value Reference Range Interpretation Comments CO2 (test code = CO2) 30 24-32 [place] 628293-02-28 09:49:00 Test Item Value Reference Range Interpretation Comments Calcium Lvl (test code = Calcium Lvl) 8.0 8.5-10.5 [place] [address]-02-28 09:49:00 Test Item Value Reference Range Interpretation Comments AGAP (test code = AGAP) 5.1 10.0-20.0 [facility]2023-02-28 09:49:00 Test Item Value Reference Range Interpretation Comments eGFR (test code = eGFR) 19 [place] 533773-02-28 09:49:00 Test Item Value Reference Range Interpretation Comments Glucose Lvl (test code = Glucose Lvl) 93 70-99 [place] [address]-02-28 09:49:00 Test Item Value Reference Range Interpretation Comments BUN (test code = BUN) 30 7-22 [place] 533773-02-28 09:49:00 Test Item Value Reference Range Interpretation Comments Creatinine Lvl (test code = Creatinine 2.50 0.50-1.40 Lvl) [place] 533773-02-28 09:49:00 Test Item Value Reference Range Interpretation Comments Sodium Lvl (test code = Sodium Lvl) 138 135-145 [place] 533773-02-28 09:49:00 Test Item Value Reference Range Interpretation Comments Potassium Lvl (test code = Potassium 5.1 3.5-5.1 Lvl) [facility]NpmebtfWXGXEVTAT2199-95-64 09:49:00 Test Item Value Reference Range Interpretation Comments Chloride Lvl (test code = Chloride Lvl) 108 95-109 [place] 533773-02-28 09:49:00 Test Item Value Reference Range Interpretation Comments CO2 (test code = CO2) 30 24-32 [place] 533773-02-28 09:49:00 Test Item Value Reference Range Interpretation Comments Calcium Lvl (test code = Calcium Lvl) 8.0 8.5-10.5 [place] 533773-02-28 09:49:00 Test Item Value Reference Range Interpretation Comments AGAP (test code = AGAP) 5.1 10.0-20.0 [place] [address]-02-28 09:49:00 Test Item Value Reference Range Interpretation Comments eGFR (test code = eGFR) 19 [facility]fieldIbpatrtKSGHNCITJU8467-68-14 09:49:00 Test Item Value Reference Range Interpretation Comments Segs (test code = Segs) 49.2 45.0-75.0 [place] 036823-02-28 09:49:00 Test Item Value Reference Range Interpretation Comments Lymphocytes (test code = Lymphocytes) 33.0 20.0-40.0 [place] 036823-02-28 09:49:00 Test Item Value Reference Range Interpretation Comments Monocytes (test code = Monocytes) 10.5 2.0-12.0 [place] 036823-02-28 09:49:00 Test Item Value Reference Range Interpretation Comments Eosinophils (test code = Eosinophils) 6.6 <=4.0 [place] 036823-02-28 09:49:00 Test Item Value Reference Range Interpretation Comments Basophils (test code = Basophils) 0.7 <=1.0 [place] [address]-02-28 09:49:00 Test Item Value Reference Range Interpretation Comments Neutrophils # (test code = Neutrophils 3.0 1.5-8.1 #) [place] 036823-02-28 09:49:00 Test Item Value Reference Range Interpretation Comments Lymphocytes # (test code = Lymphocytes 2.0 1.0-5.5 #) [facility]fieldOucjtyqXPRMAZQZBU1999-79-65 09:49:00 Test Item Value Reference Range Interpretation Comments Monocytes # (test code = Monocytes #) 0.7 <=0.8 [place] 036823-02-28 09:49:00 Test Item Value Reference Range Interpretation Comments Eosinophils # (test code = Eosinophils 0.4 <=0.5 #) [facility]fieldAyamlzaGPUDTDZTVT1409-43-53 09:49:00 Test Item Value Reference Range Interpretation Comments WBC (test code = WBC) 6.2 3.7-10.4 [place] 036823-02-28 09:49:00 Test Item Value Reference Range Interpretation Comments RBC (test code = RBC) 3.06 4.20-5.40 [place] 036823-02-28 09:49:00 Test Item Value Reference Range Interpretation Comments Hgb (test code = Hgb) 9.2 12.0-16.0 [place] [address]-02-28 09:49:00 Test Item Value Reference Range Interpretation Comments Hct (test code = Hct) 28.0 36.0-48.0 [place] 036823-02-28 09:49:00 Test Item Value Reference Range Interpretation Comments MCV (test code = MCV) 91.5 80.0-98.0 [address]02-28 09:49:00 Test Item Value Reference Range Interpretation Comments MCH (test code = MCH) 30.0 pg 27.0-31.0 [place] 036823-02-28 09:49:00 Test Item Value Reference Range Interpretation Comments MCHC (test code = MCHC) 32.7 32.0-36.0 [facility]fieldXxjkvvnLXMINDFBIA5333-87-92 09:49:00 Test Item Value Reference Range Interpretation Comments RDW (test code = RDW) 14.1 11.5-14.5 [place] 036823-02-28 09:49:00 Test Item Value Reference Range Interpretation Comments Platelet (test code = Platelet) 136 133-450 [place] 036823-02-28 09:49:00 Test Item Value Reference Range Interpretation Comments MPV (test code = MPV) 7.7 7.4-10.4 [place] 036823-02-28 09:49:00 Test Item Value Reference Range Interpretation Comments Segs (test code = Segs) 49.2 45.0-75.0 [place] 036823-02-28 09:49:00 Test Item Value Reference Range Interpretation Comments Lymphocytes (test code = Lymphocytes) 33.0 20.0-40.0 [place] 036823-02-28 09:49:00 Test Item Value Reference Range Interpretation Comments Monocytes (test code = Monocytes) 10.5 2.0-12.0 [place] 036823-02-28 09:49:00 Test Item Value Reference Range Interpretation Comments Eosinophils (test code = Eosinophils) 6.6 <=4.0 [place] 036823-02-28 09:49:00 Test Item Value Reference Range Interpretation Comments Basophils (test code = Basophils) 0.7 <=1.0 [place] [address]-02-28 09:49:00 Test Item Value Reference Range Interpretation Comments Neutrophils # (test code = Neutrophils 3.0 1.5-8.1 #) [facility]fieldAdrydnoFKHVPXRRCT6640-50-36 09:49:00 Test Item Value Reference Range Interpretation Comments Lymphocytes # (test code = Lymphocytes 2.0 1.0-5.5 #) [facility]fieldAhircmsPSOXDMPCGB7495-38-20 09:49:00 Test Item Value Reference Range Interpretation Comments Monocytes # (test code = Monocytes #) 0.7 <=0.8 [facility]fieldCcvkqzlUDNRNDRRNX5248-24-47 09:49:00 Test Item Value Reference Range Interpretation Comments Eosinophils # (test code = Eosinophils 0.4 <=0.5 #) [facility]fieldLfizswqMWLZJMZQUA2793-36-41 09:49:00 Test Item Value Reference Range Interpretation Comments WBC (test code = WBC) 6.2 3.7-10.4 [facility]fieldWptanfmLSBEIILTUN4904-57-38 09:49:00 Test Item Value Reference Range Interpretation Comments RBC (test code = RBC) 3.06 4.20-5.40 [facility]fieldWgwxeblWUABOSAZXX6000-16-24 09:49:00 Test Item Value Reference Range Interpretation Comments Hgb (test code = Hgb) 9.2 12.0-16.0 [facility]fieldKoycrewQYXXDAIPHZ5758-17-38 09:49:00 Test Item Value Reference Range Interpretation Comments Hct (test code = Hct) 28.0 36.0-48.0 [facility]fieldSdbvslyBGJMZKPMPY4190-15-52 09:49:00 Test Item Value Reference Range Interpretation Comments MCV (test code = MCV) 91.5 80.0-98.0 [facility]fieldFcfwgwwGGYQWSJAPN6892-81-23 09:49:00 Test Item Value Reference Range Interpretation Comments MCH (test code = MCH) 30.0 pg 27.0-31.0 [facility]fieldOzutgqfOIJRUSJYDL5628-76-73 09:49:00 Test Item Value Reference Range Interpretation Comments MCHC (test code = MCHC) 32.7 32.0-36.0 [facility]fieldOpvxabzQPVSFFDXHG4473-19-85 09:49:00 Test Item Value Reference Range Interpretation Comments RDW (test code = RDW) 14.1 11.5-14.5 [facility]fieldRsbnbyuYHLCLEMQCO3682-01-52 09:49:00 Test Item Value Reference Range Interpretation Comments Platelet (test code = Platelet) 136 133-450 [facility]fieldJyffbmrOHAWWRSVPQ4627-26-75 09:49:00 Test Item Value Reference Range Interpretation Comments MPV (test code = MPV) 7.7 7.4-10.4 [facility]ImlpjzhRNFTUH5184-50-16 14:44:19 Test Item Value Reference Range Interpretation [...] spinal canal narrowing at C6-7. [facility]TxctkaoGJHBXVVCLW4511-61-21 10:40:00 Test Item Value Reference Range Interpretation Comments Coronavirus (COVID-19) Not Detected (11/27/22 JONATHAN (test code = 4:40 AM) Coronavirus (COVID-19) JONATHAN) [facility] HospitalKwlcvdzTHZXZYIPTS0514-15-12 10:40:00 Test Item Value Reference Range Interpretation Comments Coronavirus (COVID-19) Not Detected (11/27/22 JONATHAN (test code = 4:40 AM) Coronavirus (COVID-19) JONATHAN) [place] 55685023-02-27 07:58:03 Test Item Value Reference Range Interpretation [...] at 11/27/2022 2:31 by Urbano Ashton MD [facility] [employer] COVQQKH1739-58-08 07:22:00 Test Item Value Reference Range Interpretation Comments ABO/Rh (test code = ABO/Rh) O POS [facility] [employer] [facility] QOIGHVT4752-15-07 07:22:00 Test Item Value Reference Range Interpretation Comments Antibody Scrn (test Negative (11/27/22 1:22 code = Antibody Scrn) AM) [facility] [employer] [facility] JOERQVW5467-03-55 07:22:00 Test Item Value Reference Range Interpretation Comments ABO/Rh (test code = ABO/Rh) O POS [facility] [employer] [facility] BTRNUJO9994-94-23 07:22:00 Test Item Value Reference Range Interpretation Comments Antibody Scrn (test Negative (11/27/22 1:22 code = Antibody Scrn) AM) [facility] HospitalQbqvoquBKHTIB9876-72-34 06:55:28 Test Item Value Reference Range Interpretation Comments RADRPT (test code EXAM: CT CERVICAL SPINE = RADRPT) WITHOUT CONTRASTDATE: 11/27/2022 0:49INDICATION: Status post fall, pain after trauma. Following trauma transfer for higher level of care request for outside film interpretation CT cervical spine without contrast performed [facility] None.TECHNIQUE: Volumetric CT of the cervical spine is acquired without contrast. Axial, coronal and sagittal images are provided. IV contrast: None.DLP: Refer to CT protocol formUT SECTION: ERFINDINGS: The spine is imaged from the skull base to the level of T2/T3.Lei Maker: Noncontributory.Bones:There is generalized decreased bone mineral density.There [...] are present.6. Agree with outside report. [facility]2023-02-27 06:27:00 Test Item Value Reference Range Interpretation Comments Glucose Lvl (test code = Glucose Lvl) 85 70-99 [place] 628293-02-27 06:27:00 Test Item Value Reference Range Interpretation Comments BUN (test code = BUN) 28 7-22 [place] 628293-02-27 06:27:00 Test Item Value Reference Range Interpretation Comments Creatinine Lvl (test code = Creatinine 2.19 0.50-1.40 Lvl) [place] 628293-02-27 06:27:00 Test Item Value Reference Range Interpretation Comments Sodium Lvl (test code = Sodium Lvl) 143 135-145 [place] 628293-02-27 06:27:00 Test Item Value Reference Range Interpretation Comments Potassium Lvl (test code = Potassium 4.3 3.5-5.1 Lvl) [place] 628293-02-27 06:27:00 Test Item Value Reference Range Interpretation Comments Chloride Lvl (test code = Chloride Lvl) 110 95-109 [place] 628293-02-27 06:27:00 Test Item Value Reference Range Interpretation Comments CO2 (test code = CO2) 27 24-32 [place] 628293-02-27 06:27:00 Test Item Value Reference Range Interpretation Comments Calcium Lvl (test code = Calcium Lvl) 8.1 8.5-10.5 [place] 628293-02-27 06:27:00 Test Item Value Reference Range Interpretation Comments AGAP (test code = AGAP) 10.3 10.0-20.0 [facility]2023-02-27 06:27:00 Test Item Value Reference Range Interpretation Comments eGFR (test code = eGFR) 22 [place] 628293-02-27 06:27:00 Test Item Value Reference Range Interpretation Comments Total Protein (test code = Total 6.6 6.4-8.4 Protein) [facility]2023-02-27 06:27:00 Test Item Value Reference Range Interpretation Comments Albumin Lvl (test code = Albumin Lvl) 3.0 3.5-5.0 [place] 628293-02-27 06:27:00 Test Item Value Reference Range Interpretation Comments Globulin (test code = Globulin) 3.6 2.7-4.2 [place] 628293-02-27 06:27:00 Test Item Value Reference Range Interpretation Comments A/G Ratio (test code = A/G Ratio) 0.8 1 0.7-1.6 [place] 628293-02-27 06:27:00 Test Item Value Reference Range Interpretation Comments ALANINE AMINOTRANSFERASE (test code = 21 <=65 ALANINE AMINOTRANSFERASE) [facility]2023-02-27 06:27:00 Test Item Value Reference Range Interpretation Comments AST (test code = AST) 17 <=37 [place] 628293-02-27 06:27:00 Test Item Value Reference Range Interpretation Comments Alk Phos (test code = Alk Phos) 84 39-136 [place] 628293-02-27 06:27:00 Test Item Value Reference Range Interpretation Comments Bili Total (test code = Bili Total) 0.3 0.2-1.3 [place] 628293-02-27 06:27:00 Test Item Value Reference Range Interpretation Comments Bili Direct (test code = Bili Direct) no gt <=0.3 [place] 628293-02-27 06:27:00 Test Item Value Reference Range Interpretation Comments Bili Indirect (test code Unable to Calculate <=1.0 = Bili Indirect) [facility]2023-02-27 06:27:00 Test Item Value Reference Range Interpretation Comments Lactic Acid Lvl (test code = Lactic 0.5 0.5-2.2 Acid Lvl) [place] 533773-02-27 06:27:00 Test Item Value Reference Range Interpretation Comments Total Protein (test code = Total 6.6 6.4-8.4 Protein) [facility]NT1803[facility]73[facility] 06:27:00 Test Item Value Reference Range Interpretation Comments Albumin Lvl (test code = Albumin Lvl) 3.0 3.5-5.0 [place] [address]-02-27 06:27:00 Test Item Value Reference Range Interpretation Comments Globulin (test code = Globulin) 3.6 2.7-4.2 [place] 533773-02-27 06:27:00 Test Item Value Reference Range Interpretation Comments A/G Ratio (test code = A/G Ratio) 0.8 1 0.7-1.6 [place] [address]-02-27 06:27:00 Test Item Value Reference Range Interpretation Comments ALANINE AMINOTRANSFERASE (test code = 21 <=65 ALANINE AMINOTRANSFERASE) [place] 533773-02-27 06:27:00 Test Item Value Reference Range Interpretation Comments AST (test code = AST) 17 <=37 [place] 533773-02-27 06:27:00 Test Item Value Reference Range Interpretation Comments Alk Phos (test code = Alk Phos) 84 39-136 [place] 533773-02-27 06:27:00 Test Item Value Reference Range Interpretation Comments Bili Total (test code = Bili Total) 0.3 0.2-1.3 [place] 533773-02-27 06:27:00 Test Item Value Reference Range Interpretation Comments Bili Direct (test code = Bili Direct) no gt <=0.3 [place] 533773-02-27 06:27:00 Test Item Value Reference Range Interpretation Comments Bili Indirect (test code Unable to Calculate <=1.0 = Bili Indirect) [place] [address]-02-27 06:27:00 Test Item Value Reference Range Interpretation Comments pH Justin (test code = pH Justin) 7.29 1 7.28-7.42 [facility]ElijyykJJWZDRBQY1514-71-31 06:27:00 Test Item Value Reference Range Interpretation Comments pCO2 Justin (test code = pCO2 Justin) 65 38-52 [place] 533773-02-27 06:27:00 Test Item Value Reference Range Interpretation Comments pO2 Justin (test code = pO2 Justin) 37 20-49 [facility] CenterCaoivbfKXVOQXNMC9655-80-86 06:27:00 Test Item Value Reference Range Interpretation Comments HCO3 Justin (test code = HCO3 Justin) 31 22-26 [facility] CenterBccbfzkQMAMJFQPJ7353-25-24 06:27:00 Test Item Value Reference Range Interpretation Comments BE Justin (test code = BE Justin) 3 -2-2 [facility] CenterTbpxmnpKCCLNHKHC5331-04-88 06:27:00 Test Item Value Reference Range Interpretation Comments O2 Sat Justin (calc) (test code = O2 Sat 63.0 40.0-70.0 Justin (calc)) [facility] CenterRzwqdlxXCVQFPUCZ8024-20-48 06:27:00 Test Item Value Reference Range Interpretation Comments Temp Justin (test code = Temp Justin) 37.0 [facility] CenterJtpnwciEPQEKENOU5954-58-03 06:27:00 Test Item Value Reference Range Interpretation Comments Lactic Acid Lvl (test code = Lactic 0.5 0.5-2.2 Acid Lvl) [facility] CenterBedswxzAULAHXCAS4280-01-60 06:27:00 Test Item Value Reference Range Interpretation Comments TSH (test code = TSH) 0.403 0.360-3.740 [facility]FotbgkhHVSBRQEPRC2835-49-36 06:27:00 Test Item Value Reference Range Interpretation Comments WBC X 10x3 (test code = WBC X 10x3) 5.9 3.7-10.4 [place] 036823-02-27 06:27:00 Test Item Value Reference Range Interpretation Comments RBC X 10x6 (test code = RBC X 10x6) 3.67 4.20-5.40 [place] 036823-02-27 06:27:00 Test Item Value Reference Range Interpretation Comments Hgb (test code = Hgb) 10.7 12.0-16.0 [place] 036823-02-27 06:27:00 Test Item Value Reference Range Interpretation Comments Hct (test code = Hct) 33.5 36.0-48.0 [place] [address]-02-27 06:27:00 Test Item Value Reference Range Interpretation Comments MCV (test code = MCV) 91.4 80.0-98.0 [place] [address]-02-27 06:27:00 Test Item Value Reference Range Interpretation Comments MCH (test code = MCH) 29.3 pg 27.0-31.0 [place] 036823-02-27 06:27:00 Test Item Value Reference Range Interpretation Comments MCHC (test code = MCHC) 32.0 32.0-36.0 [place] [address]-02-27 06:27:00 Test Item Value Reference Range Interpretation Comments RDW (test code = RDW) 13.7 11.5-14.5 [place] [address]-02-27 06:27:00 Test Item Value Reference Range Interpretation Comments Platelet (test code = Platelet) 139 133-450 [place] 036823-02-27 06:27:00 Test Item Value Reference Range Interpretation Comments MPV (test code = MPV) 7.5 7.4-10.4 [place] 036823-02-27 06:27:00 Test Item Value Reference Range Interpretation Comments ACT (TEG) Rapid (test code = ACT (TEG) 121 s 86-118 Rapid) [place] 036823-02-27 06:27:00 Test Item Value Reference Range Interpretation Comments Split Point Rapid (test code = Split 0.6 min Point Rapid) [place] 036823-02-27 06:27:00 Test Item Value Reference Range Interpretation Comments R-time Rapid (test code = R-time 0.8 min 0.4-0.7 Rapid) [place] [address]-02-27 06:27:00 Test Item Value Reference Range Interpretation Comments K-time Rapid (test code = K-time 0.8 min 0.6-2.3 Rapid) [place] [address]-02-27 06:27:00 Test Item Value Reference Range Interpretation Comments Angle Rapid (test code = Angle 79 degrees 64-80 Rapid) [place] 036823-02-27 06:27:00 Test Item Value Reference Range Interpretation Comments Max Amplitude Rapid (test code = Max 71 mm 52-71 Amplitude Rapid) [place] 036823-02-27 06:27:00 Test Item Value Reference Range Interpretation Comments G-value Rapid (test code = G-value 12.1 5.0-11.6 Rapid) [facility]SynwxmrCKGTXNWREE8215-99-10 06:27:00 Test Item Value Reference Range Interpretation Comments Estimated % Lysis Rapid (test code = 0.0 <=7.5 Estimated % Lysis Rapid) [facility]fieldKdkwenoQXQJKPZFXH1906-89-06 06:27:00 Test Item Value Reference Range Interpretation Comments RBC Morph (test code = Normal (11/27/22 12:27 RBC Morph) AM) [facility]fieldYscmmhtGQVJXLGOWD8782-94-46 06:27:00 Test Item Value Reference Range Interpretation Comments Plt Morph (test code = Normal (11/27/22 12:27 Plt Morph) AM) [facility]fieldAorzwssNSZAHXEAKU5233-06-44 06:27:00 Test Item Value Reference Range Interpretation Comments Segs (test code = Segs) 60.1 45.0-75.0 [place] 036823-02-27 06:27:00 Test Item Value Reference Range Interpretation Comments Lymphocytes (test code = Lymphocytes) 23.9 20.0-40.0 [facility]fieldDpfavhfLLUBEDETLA8722-76-31 06:27:00 Test Item Value Reference Range Interpretation Comments Monocytes (test code = Monocytes) 9.6 2.0-12.0 [facility]fieldMgfvvjoJCXNAVACEN4642-30-75 06:27:00 Test Item Value Reference Range Interpretation Comments Eosinophils (test code = Eosinophils) 5.2 <=4.0 [place] 036823-02-27 06:27:00 Test Item Value Reference Range Interpretation Comments Basophils (test code = Basophils) 1.2 <=1.0 [place] 036823-02-27 06:27:00 Test Item Value Reference Range Interpretation Comments Neutrophils # (test code = Neutrophils 3.5 1.5-8.1 #) [facility]fieldKadxmppKKQUQQTBWO1807-99-58 06:27:00 Test Item Value Reference Range Interpretation Comments Lymphocytes # (test code = Lymphocytes 1.4 1.0-5.5 #) [facility]fieldTbydatiUFXMAZSIZM1962-63-38 06:27:00 Test Item Value Reference Range Interpretation Comments Monocytes # (test code = Monocytes #) 0.6 <=0.8 [place] 036823-02-27 06:27:00 Test Item Value Reference Range Interpretation Comments Eosinophils # (test code = Eosinophils 0.3 <=0.5 #) [place] [address]-02-27 06:27:00 Test Item Value Reference Range Interpretation Comments Basophils # (test code = Basophils #) 0.1 <=0.2 [place] [address]-02-27 06:27:00 Test Item Value Reference Range Interpretation Comments ACT (TEG) Rapid (test code = ACT (TEG) 121 s 86-118 Rapid) [place] 036823-02-27 06:27:00 Test Item Value Reference Range Interpretation Comments Split Point Rapid (test code = Split 0.6 min Point Rapid) [place] [address]-02-27 06:27:00 Test Item Value Reference Range Interpretation Comments R-time Rapid (test code = R-time 0.8 min 0.4-0.7 Rapid) [place] [address]-02-27 06:27:00 Test Item Value Reference Range Interpretation Comments K-time Rapid (test code = K-time 0.8 min 0.6-2.3 Rapid) [place] [address]-02-27 06:27:00 Test Item Value Reference Range Interpretation Comments Angle Rapid (test code = Angle 79 degrees 64-80 Rapid) [place] [address]-02-27 06:27:00 Test Item Value Reference Range Interpretation Comments Max Amplitude Rapid (test code = Max 71 mm 52-71 Amplitude Rapid) [place] [address]-02-27 06:27:00 Test Item Value Reference Range Interpretation Comments G-value Rapid (test code = G-value 12.1 5.0-11.6 Rapid) [place] [address]-02-27 06:27:00 Test Item Value Reference Range Interpretation Comments Estimated % Lysis Rapid (test code = 0.0 <=7.5 Estimated % Lysis Rapid) [place] [address]-02-27 06:27:00 Test Item Value Reference Range Interpretation Comments RBC Morph (test code = Normal (11/27/22 12:27 RBC Morph) AM) [place] [address]-02-27 06:27:00 Test Item Value Reference Range Interpretation Comments Plt Morph (test code = Normal (11/27/22 12:27 Plt Morph) AM) [facility]RTFTVJVVI7053[facility] 06:27:00 Test Item Value Reference Range Interpretation Comments Basophils # (test code = Basophils #) 0.1 <=0.2 [place] 628293-02-22 13:17:00 Test Item Value Reference Range Interpretation Comments Glucose Lvl (test code = Glucose Lvl) 65 70-99 [place] 628293-02-22 13:17:00 Test Item Value Reference Range Interpretation Comments BUN (test code = BUN) 39 7-22 [place] 628293-02-22 13:17:00 Test Item Value Reference Range Interpretation Comments Creatinine Lvl (test code = Creatinine 2.03 0.50-1.40 Lvl) [place] 628293-02-22 13:17:00 Test Item Value Reference Range Interpretation Comments Sodium Lvl (test code = Sodium Lvl) 139 135-145 [place] 628293-02-22 13:17:00 Test Item Value Reference Range Interpretation Comments Potassium Lvl (test code = Potassium 4.7 3.5-5.1 Lvl) [facility]2023-02-22 13:17:00 Test Item Value Reference Range Interpretation Comments Chloride Lvl (test code = Chloride Lvl) 107 95-109 [facility]2023-02-22 13:17:00 Test Item Value Reference Range Interpretation Comments CO2 (test code = CO2) 26 24-32 [place] 628293-02-22 13:17:00 Test Item Value Reference Range Interpretation Comments Calcium Lvl (test code = Calcium Lvl) 8.1 8.5-10.5 [place] 628293-02-22 13:17:00 Test Item Value Reference Range Interpretation Comments AGAP (test code = AGAP) 10.7 10.0-20.0 [place] 628293-02-22 13:17:00 Test Item Value Reference Range Interpretation Comments eGFR (test code = eGFR) 24 [place] 628293-02-22 13:17:00 Test Item Value Reference Range Interpretation Comments Magnesium Lvl (test code = Magnesium 2.7 1.8-2.4 Lvl) [place] 628293-02-22 13:17:00 Test Item Value Reference Range Interpretation Comments Phosphorus (test code = Phosphorus) 3.9 2.5-4.5 [facility] CenterPdhrzoyNKFZNNTGE7840-04-03 13:17:00 Test Item Value Reference Range Interpretation Comments Glucose Lvl (test code = Glucose Lvl) 65 70-99 [facility] CenterDipcutjRBBCUPFPH5151-27-19 13:17:00 Test Item Value Reference Range Interpretation Comments BUN (test code = BUN) 39 7-22 [facility] CenterKpktbpvTQMFUCTDJ4013-56-04 13:17:00 Test Item Value Reference Range Interpretation Comments Creatinine Lvl (test code = Creatinine 2.03 0.50-1.40 Lvl) [facility] CenterSitwtcyWCPLMZMBV1541-38-30 13:17:00 Test Item Value Reference Range Interpretation Comments Sodium Lvl (test code = Sodium Lvl) 139 135-145 [facility] CenterCqcpujdOEBLWUNFG4296-50-58 13:17:00 Test Item Value Reference Range Interpretation Comments Potassium Lvl (test code = Potassium 4.7 3.5-5.1 Lvl) [facility] CenterNihemkkJNURHBNVX9085-41-47 13:17:00 Test Item Value Reference Range Interpretation Comments Chloride Lvl (test code = Chloride Lvl) 107 95-109 [facility] CenterLvxwrmiXPEZQDIXB8809-64-09 13:17:00 Test Item Value Reference Range Interpretation Comments CO2 (test code = CO2) 26 24-32 [facility] CenterQatpmyiGWQZQCGRC7855-41-61 13:17:00 Test Item Value Reference Range Interpretation Comments Calcium Lvl (test code = Calcium Lvl) 8.1 8.5-10.5 [facility] CenterCxmtbhzTQDBLQSVH5892-02-20 13:17:00 Test Item Value Reference Range Interpretation Comments AGAP (test code = AGAP) 10.7 10.0-20.0 [facility] CenterNbyqhjsZOBIQMGNY3669-58-88 13:17:00 Test Item Value Reference Range Interpretation Comments eGFR (test code = eGFR) 24 [facility] CenterKuwmbuoDTKHYVQVY5889-30-34 13:17:00 Test Item Value Reference Range Interpretation Comments Ca Ion WB (test code = Ca Ion WB) 1.06 1.05-1.25 [facility] CenterMtzbuccLGOZJAKOO9488-13-86 13:17:00 Test Item Value Reference Range Interpretation Comments Ca Ion at pH 7.4 WB (test code = Ca Ion 1.03 1.05-1.25 at pH 7.4 WB) [place] 533773-02-22 13:17:00 Test Item Value Reference Range Interpretation Comments Magnesium Lvl (test code = Magnesium 2.7 1.8-2.4 Lvl) [facility] CenterXtocgqpMKJPSUIQL1173-43-89 13:17:00 Test Item Value Reference Range Interpretation Comments Phosphorus (test code = Phosphorus) 3.9 2.5-4.5 [place] 036823-02-22 13:17:00 Test Item Value Reference Range Interpretation Comments Segs (test code = Segs) 54.4 45.0-75.0 [place] 036823-02-22 13:17:00 Test Item Value Reference Range Interpretation Comments Lymphocytes (test code = Lymphocytes) 29.3 20.0-40.0 [place] [address]-02-22 13:17:00 Test Item Value Reference Range Interpretation Comments Monocytes (test code = Monocytes) 10.5 2.0-12.0 [place] 036823-02-22 13:17:00 Test Item Value Reference Range Interpretation Comments Eosinophils (test code = Eosinophils) 5.0 <=4.0 [place] 036823-02-22 13:17:00 Test Item Value Reference Range Interpretation Comments Basophils (test code = Basophils) 0.8 <=1.0 [place] [address]-02-22 13:17:00 Test Item Value Reference Range Interpretation Comments Neutrophils # (test code = Neutrophils 4.1 1.5-8.1 #) [facility]NkobjpiVCJILMOEFF2810-41-30 13:17:00 Test Item Value Reference Range Interpretation Comments Lymphocytes # (test code = Lymphocytes 2.2 1.0-5.5 #) [facility]fieldEbwriugGWZQVCRBLX7349-58-23 13:17:00 Test Item Value Reference Range Interpretation Comments Monocytes # (test code = Monocytes #) 0.8 <=0.8 [place] [address]-02-22 13:17:00 Test Item Value Reference Range Interpretation Comments Eosinophils # (test code = Eosinophils 0.4 <=0.5 #) [place] [address]-02-22 13:17:00 Test Item Value Reference Range Interpretation Comments Basophils # (test code = Basophils #) 0.1 <=0.2 [place] [address]-02-22 13:17:00 Test Item Value Reference Range Interpretation Comments WBC (test code = WBC) 7.5 3.7-10.4 [place] 036823-02-22 13:17:00 Test Item Value Reference Range Interpretation Comments RBC (test code = RBC) 3.30 4.20-5.40 [place] 036823-02-22 13:17:00 Test Item Value Reference Range Interpretation Comments Hgb (test code = Hgb) 9.9 12.0-16.0 [place] 036823-02-22 13:17:00 Test Item Value Reference Range Interpretation Comments Hct (test code = Hct) 30.3 36.0-48.0 [place] 036823-02-22 13:17:00 Test Item Value Reference Range Interpretation Comments MCV (test code = MCV) 91.8 80.0-98.0 [place] 036823-02-22 13:17:00 Test Item Value Reference Range Interpretation Comments MCH (test code = MCH) 30.0 pg 27.0-31.0 [place] 036823-02-22 13:17:00 Test Item Value Reference Range Interpretation Comments MCHC (test code = MCHC) 32.7 32.0-36.0 [facility]fieldUiyjpclEVQSBIUQGY0791-58-03 13:17:00 Test Item Value Reference Range Interpretation Comments RDW (test code = RDW) 14.4 11.5-14.5 [place] 036823-02-22 13:17:00 Test Item Value Reference Range Interpretation Comments Platelet (test code = Platelet) 136 133-450 [facility]fieldDausupvEEFQJUIYUM5869-50-34 13:17:00 Test Item Value Reference Range Interpretation Comments MPV (test code = MPV) 8.7 7.4-10.4 [place] [address]-02-22 13:17:00 Test Item Value Reference Range Interpretation Comments Segs (test code = Segs) 54.4 45.0-75.0 [place] 036823-02-22 13:17:00 Test Item Value Reference Range Interpretation Comments Lymphocytes (test code = Lymphocytes) 29.3 20.0-40.0 [place] 036823-02-22 13:17:00 Test Item Value Reference Range Interpretation Comments Monocytes (test code = Monocytes) 10.5 2.0-12.0 [place] 036823-02-22 13:17:00 Test Item Value Reference Range Interpretation Comments Eosinophils (test code = Eosinophils) 5.0 <=4.0 [place] 036823-02-22 13:17:00 Test Item Value Reference Range Interpretation Comments Basophils (test code = Basophils) 0.8 <=1.0 [place] 036823-02-22 13:17:00 Test Item Value Reference Range Interpretation Comments Neutrophils # (test code = Neutrophils 4.1 1.5-8.1 #) [facility]fieldOomvinrLOGSFZUAOK6352-93-50 13:17:00 Test Item Value Reference Range Interpretation Comments Lymphocytes # (test code = Lymphocytes 2.2 1.0-5.5 #) [place] 036823-02-22 13:17:00 Test Item Value Reference Range Interpretation Comments Monocytes # (test code = Monocytes #) 0.8 <=0.8 [place] 036823-02-22 13:17:00 Test Item Value Reference Range Interpretation Comments Eosinophils # (test code = Eosinophils 0.4 <=0.5 #) [facility]fieldTvzocziCXPAVFWYYW0112-47-62 13:17:00 Test Item Value Reference Range Interpretation Comments Basophils # (test code = Basophils #) 0.1 <=0.2 [place] [address]-02-22 13:17:00 Test Item Value Reference Range Interpretation Comments WBC (test code = WBC) 7.5 3.7-10.4 [place] 036823-02-22 13:17:00 Test Item Value Reference Range Interpretation Comments RBC (test code = RBC) 3.30 4.20-5.40 [place] 036823-02-22 13:17:00 Test Item Value Reference Range Interpretation Comments Hgb (test code = Hgb) 9.9 12.0-16.0 [place] [address]-02-22 13:17:00 Test Item Value Reference Range Interpretation Comments Hct (test code = Hct) 30.3 36.0-48.0 [place] 036823-02-22 13:17:00 Test Item Value Reference Range Interpretation Comments MCV (test code = MCV) 91.8 80.0-98.0 [place] 036823-02-22 13:17:00 Test Item Value Reference Range Interpretation Comments MCH (test code = MCH) 30.0 pg 27.0-31.0 [facility] HospitalIwmffuzQYFOICJDHZ5917-81-13 13:17:00 Test Item Value Reference Range Interpretation Comments MCHC (test code = MCHC) 32.7 32.0-36.0 [facility]jjYINOJXWPES8214-67-43 13:17:00 Test Item Value Reference Range Interpretation Comments RDW (test code = RDW) 14.4 11.5-14.5 [facility] HospitalJpescioOBKXPSAKPL7389-44-35 13:17:00 Test Item Value Reference Range Interpretation Comments Platelet (test code = Platelet) 136 133-450 [facility] HospitalQmfkzliKPXZUISYRR7426-83-99 13:17:00 Test Item Value Reference Range Interpretation Comments MPV (test code = MPV) 8.7 7.4-10.4 [facility] HospitalannPARATHYROID CSQQCBB0204-74-87 13:17:00 Test Item Value Reference Range Interpretation Comments Ca Ion WB (test code = Ca Ion WB) 1.06 1.05-1.25 [facility] HospitalannPARATHYROID DGZNRAU4533-98-99 13:17:00 Test Item Value Reference Range Interpretation Comments Ca Ion at pH 7.4 WB (test code = Ca Ion 1.03 1.05-1.25 at pH 7.4 WB) [facility] HospitalCcxmpmrXXCVLHKZD8751-96-91 15:39:00 Test Item Value Reference Range Interpretation Comments U Amph Scr (test code Negative *NA*(11/21/22 = U Amph Scr) 9:39 AM) [facility] HospitalVscvttsKPPKGPEZP8259-40-06 15:39:00 Test Item Value Reference Range Interpretation Comments U Analilia Scr (test code Positive *ABN*(11/21/22 = U Analilia Scr) 9:39 AM) [facility] HospitalUvxynoiWYJLWELMG9479-38-02 15:39:00 Test Item Value Reference Range Interpretation Comments U Benzodiaz Scr (test Negative *NA*(11/21/22 code = U Benzodiaz Scr) 9:39 AM) [facility]AsmdzcoCHRQPBLZQ8016-11-59 15:39:00 Test Item Value Reference Range Interpretation Comments U Cocaine Scr (test Negative *NA*(11/21/22 code = U Cocaine Scr) 9:39 AM) [facility] LklxsxbEXZULEZQE7920-80-19 15:39:00 Test Item Value Reference Range Interpretation Comments U Cannab Scr (test Negative *NA*(11/21/22 code = U Cannab Scr) 9:39 AM) [facility] XskhmdzHUWVOQZBW1887-21-90 15:39:00 Test Item Value Reference Range Interpretation Comments U Opiate Scr (test Positive *ABN*(11/21/22 code = U Opiate Scr) 9:39 AM) [facility] QpeqcqxAAPNCXVLK9495-78-52 15:39:00 Test Item Value Reference Range Interpretation Comments U Phencyclidine Scr (test Negative code = U Phencyclidine *NA*(11/21/22 9:39 Scr) AM) [facility] BvuvqpkIQFGNWHZU1279-38-85 15:39:00 Test Item Value Reference Range Interpretation Comments UDS Note (test code = See Note (11/21/22 9:39 UDS Note) AM) [facility] [id number] 15:39:00 Test Item Value Reference Range Interpretation Comments U Amph Scr (test code Negative *NA*(11/21/22 = U Amph Scr) 9:39 AM) [facility] DVOCVO9816-00-15 15:39:00 Test Item Value Reference Range Interpretation Comments U Analilia Scr (test code Positive *ABN*(11/21/22 = U Analilia Scr) 9:39 AM) [facility] JKJVBO9201-22-10 15:39:00 Test Item Value Reference Range Interpretation Comments U Benzodiaz Scr (test Negative *NA*(11/21/22 code = U Benzodiaz Scr) 9:39 AM) [facility] [id number] 15:39:00 Test Item Value Reference Range Interpretation Comments U Cocaine Scr (test Negative *NA*(11/21/22 code = U Cocaine Scr) 9:39 AM) [facility] [id number] 15:39:00 Test Item Value Reference Range Interpretation Comments U Cannab Scr (test Negative *NA*(11/21/22 code = U Cannab Scr) 9:39 AM) [facility] [id number] 15:39:00 Test Item Value Reference Range Interpretation Comments U Opiate Scr (test Positive *ABN*(11/21/22 code = U Opiate Scr) 9:39 AM) [facility] [id number] 15:39:00 Test Item Value Reference Range Interpretation Comments U Phencyclidine Scr (test Negative code = U Phencyclidine *NA*(11/21/22 9:39 Scr) AM) [facility] [id number] 15:39:00 Test Item Value Reference Range Interpretation Comments UDS Note (test code = See Note (11/21/22 9:39 UDS Note) AM) [facility] NxhoakfQJUBZXUQBX3620-87-37 15:39:00 Test Item Value Reference Range Interpretation Comments Coronavirus (COVID-19) Not Detected (11/21/22 JONATHAN (test code = 9:39 AM) Coronavirus (COVID-19) JONATHAN) [facility] FcjdpqsDVTVODKEJY7220-91-26 15:39:00 Test Item Value Reference Range Interpretation Comments Coronavirus (COVID-19) Not Detected (11/21/22 JONATHAN (test code = 9:39 AM) Coronavirus (COVID-19) JONATHAN) [facility] [id number] 15:39:00 Test Item Value Reference Range Interpretation Comments UA Color (test code = Light Yellow UA Color) *NA*(11/21/22 9:39 AM) [facility] [id number] 15:39:00 Test Item Value Reference Range Interpretation Comments UA Turbidity (test code = Clear (11/21/22 9:39 UA Turbidity) AM) [facility] [id number] 15:39:00 Test Item Value Reference Range Interpretation Comments UA Spec Grav (test code = UA Spec 1.014 1 Grav) [facility] [id number] 15:39:00 Test Item Value Reference Range Interpretation Comments UA pH (test code = UA pH) 6.0 1 5.0-8.0 [facility] [id number] 15:39:00 Test Item Value Reference Range Interpretation Comments UA Protein (test code = UA Protein) 30 mg/dL [facility] [id number] 15:39:00 Test Item Value Reference Range Interpretation Comments UA Glucose (test code = UA Negative mg/dL Glucose) [facility] [id number] 15:39:00 Test Item Value Reference Range Interpretation Comments UA Ketones (test code = UA Negative mg/dL Ketones) [facility] [id number] 15:39:00 Test Item Value Reference Range Interpretation Comments UA Bili (test code = Negative *NA*(11/21/22 UA Bili) 9:39 AM) [facility] [id number] 15:39:00 Test Item Value Reference Range Interpretation Comments UA Blood (test code = Negative (11/21/22 9:39 UA Blood) AM) [facility] [id number] 15:39:00 Test Item Value Reference Range Interpretation Comments UA Urobilinogen (test code = UA no gt 0.1-1.0 Urobilinogen) [facility] [id number] 15:39:00 Test Item Value Reference Range Interpretation Comments UA Nitrite (test code Negative (11/21/22 9:39 = UA Nitrite) AM) [facility] [id number] 15:39:00 Test Item Value Reference Range Interpretation Comments UA Leuk Est (test Negative (11/21/22 9:39 code = UA Leuk Est) AM) [facility] [id number] 15:39:00 Test Item Value Reference Range Interpretation Comments UA Sq Epi (test code = UA Sq Occasional /LPF Epi) [facility] [id number] 15:39:00 Test Item Value Reference Range Interpretation Comments UA WBC (test code = UA WBC) no gt <=5 [facility] [id number] 15:39:00 Test Item Value Reference Range Interpretation Comments UA RBC (test code = UA RBC) no gt <=2 [facility] [id number] 15:39:00 Test Item Value Reference Range Interpretation Comments UA Color (test code = Light Yellow UA Color) *NA*(11/21/22 9:39 AM) [facility] [id number] 15:39:00 Test Item Value Reference Range Interpretation Comments UA Turbidity (test code = Clear (11/21/22 9:39 UA Turbidity) AM) [facility] [id number] 15:39:00 Test Item Value Reference Range Interpretation Comments UA Spec Grav (test code = UA Spec 1.014 1 Grav) [facility] [id number] 15:39:00 Test Item Value Reference Range Interpretation Comments UA pH (test code = UA pH) 6.0 1 5.0-8.0 [facility] AND [id number] 15:39:00 Test Item Value Reference Range Interpretation Comments UA Protein (test code = UA Protein) 30 mg/dL [facility] AND [id number] 15:39:00 Test Item Value Reference Range Interpretation Comments UA Glucose (test code = UA Negative mg/dL Glucose) [facility] AND [id number] 15:39:00 Test Item Value Reference Range Interpretation Comments UA Ketones (test code = UA Negative mg/dL Ketones) [facility] AND [id number] 15:39:00 Test Item Value Reference Range Interpretation Comments UA Bili (test code = Negative *NA*(11/21/22 UA Bili) 9:39 AM) [facility] AND [id number] 15:39:00 Test Item Value Reference Range Interpretation Comments UA Blood (test code = Negative (11/21/22 9:39 UA Blood) AM) [facility] AND [id number] 15:39:00 Test Item Value Reference Range Interpretation Comments UA Urobilinogen (test code = UA no gt 0.1-1.0 Urobilinogen) [facility] AND [id number] 15:39:00 Test Item Value Reference Range Interpretation Comments UA Nitrite (test code Negative (11/21/22 9:39 = UA Nitrite) AM) [facility] AND [id number] 15:39:00 Test Item Value Reference Range Interpretation Comments UA Leuk Est (test Negative (11/21/22 9:39 code = UA Leuk Est) AM) [facility] AND [id number] 15:39:00 Test Item Value Reference Range Interpretation Comments UA Sq Epi (test code = UA Sq Occasional /LPF Epi) [facility] AND [id number] 15:39:00 Test Item Value Reference Range Interpretation Comments UA WBC (test code = UA WBC) no gt <=5 [facility] AND [id number] 15:39:00 Test Item Value Reference Range Interpretation Comments UA RBC (test code = UA RBC) no gt <=2 [facility] BANK [id number] 12:50:00 Test Item Value Reference Range Interpretation Comments ABO/Rh (test code = ABO/Rh) O POS [facility] [employer] [id number] 12:50:00 Test Item Value Reference Range Interpretation Comments Antibody Scrn (test Negative (11/21/22 6:50 code = Antibody Scrn) AM) [facility] [employer] [id number] 12:50:00 Test Item Value Reference Range Interpretation Comments ABO/Rh (test code = ABO/Rh) O POS [facility] [employer] [id number] 12:50:00 Test Item Value Reference Range Interpretation Comments Antibody Scrn (test Negative (11/21/22 6:50 code = Antibody Scrn) AM) [facility] [employer] [id number] 12:50:00 Test Item Value Reference Range Interpretation Comments HS Troponin I (test code = HS Troponin 15 I) [facility] [employer] [id number] 12:50:00 Test Item Value Reference Range Interpretation Comments Glucose Lvl (test code = Glucose Lvl) 99 70-99 [facility] [employer] [id number] 12:50:00 Test Item Value Reference Range Interpretation Comments BUN (test code = BUN) 38 7-22 [facility] [employer] [id number] 12:50:00 Test Item Value Reference Range Interpretation Comments Creatinine Lvl (test code = Creatinine 2.38 0.50-1.40 Lvl) [facility] [employer] [id number] 12:50:00 Test Item Value Reference Range Interpretation Comments Sodium Lvl (test code = Sodium Lvl) 140 135-145 [facility] [employer]2023-02-21 12:50:00 Test Item Value Reference Range Interpretation Comments Potassium Lvl (test code = Potassium 3.9 3.5-5.1 Lvl) [facility] [employer]2023-02-21 12:50:00 Test Item Value Reference Range Interpretation Comments Chloride Lvl (test code = Chloride Lvl) 107 95-109 [facility] [employer] [id number] 12:50:00 Test Item Value Reference Range Interpretation Comments CO2 (test code = CO2) 27 24-32 [facility] [employer] [id number] 12:50:00 Test Item Value Reference Range Interpretation Comments Calcium Lvl (test code = Calcium Lvl) 8.1 8.5-10.5 [facility]2023-02-21 12:50:00 Test Item Value Reference Range Interpretation Comments AGAP (test code = AGAP) 9.9 10.0-20.0 [facility]2023-02-21 12:50:00 Test Item Value Reference Range Interpretation Comments eGFR (test code = eGFR) 20 [facility]2023-02-21 12:50:00 Test Item Value Reference Range Interpretation Comments Lactic Acid Lvl (test code = Lactic 0.7 0.5-2.2 Acid Lvl) [place] 628293-02-21 12:50:00 Test Item Value Reference Range Interpretation Comments Total Protein (test code = Total 6.1 6.4-8.4 Protein) [facility]2023-02-21 12:50:00 Test Item Value Reference Range Interpretation Comments Albumin Lvl (test code = Albumin Lvl) 2.9 3.5-5.0 [place] 628293-02-21 12:50:00 Test Item Value Reference Range Interpretation Comments Globulin (test code = Globulin) 3.2 2.7-4.2 [facility]2023-02-21 12:50:00 Test Item Value Reference Range Interpretation Comments A/G Ratio (test code = A/G Ratio) 0.9 1 0.7-1.6 [place] 628293-02-21 12:50:00 Test Item Value Reference Range Interpretation Comments ALT (test code = ALT) 16 <=65 [place] 628293-02-21 12:50:00 Test Item Value Reference Range Interpretation Comments AST (test code = AST) 15 <=37 [place] 628293-02-21 12:50:00 Test Item Value Reference Range Interpretation Comments Alk Phos (test code = Alk Phos) 96 39-136 [facility]2023-02-21 12:50:00 Test Item Value Reference Range Interpretation Comments Bili Total (test code = Bili Total) 0.2 0.2-1.3 [place] 628293-02-21 12:50:00 Test Item Value Reference Range Interpretation Comments Bili Direct (test code = Bili Direct) no gt <=0.3 [place] [address]-02-21 12:50:00 Test Item Value Reference Range Interpretation Comments Bili Indirect (test code Unable to Calculate <=1.0 = Bili Indirect) [place] [address]-02-21 12:50:00 Test Item Value Reference Range Interpretation Comments Ethanol Lvl (test code = Ethanol Lvl) [facility] gt [facility]LABFISSHQ3685[facility]73[facility] 12:50:00 Test Item Value Reference Range Interpretation Comments Etoh (%) (test code = Etoh (%)) no gt [facility] CenterVappkmiEJDCKUKOQ9396-51-75 12:50:00 Test Item Value Reference Range Interpretation Comments Lactic Acid Lvl (test code = Lactic 0.7 0.5-2.2 Acid Lvl) [place] 533773-02-21 12:50:00 Test Item Value Reference Range Interpretation Comments Total Protein (test code = Total 6.1 6.4-8.4 Protein) [facility] CenterEcdffffJTMDKHJOV6835-26-52 12:50:00 Test Item Value Reference Range Interpretation Comments Albumin Lvl (test code = Albumin Lvl) 2.9 3.5-5.0 [place] [address]-02-21 12:50:00 Test Item Value Reference Range Interpretation Comments Globulin (test code = Globulin) 3.2 2.7-4.2 [place] 533773-02-21 12:50:00 Test Item Value Reference Range Interpretation Comments A/G Ratio (test code = A/G Ratio) 0.9 1 0.7-1.6 [place] [address]-02-21 12:50:00 Test Item Value Reference Range Interpretation Comments ALT (test code = ALT) 16 <=65 [place] [address]-02-21 12:50:00 Test Item Value Reference Range Interpretation Comments AST (test code = AST) 15 <=37 [place] [address]-02-21 12:50:00 Test Item Value Reference Range Interpretation Comments Alk Phos (test code = Alk Phos) 96 39-136 [place] 533773-02-21 12:50:00 Test Item Value Reference Range Interpretation Comments Bili Total (test code = Bili Total) 0.2 0.2-1.3 [place] 533773-02-21 12:50:00 Test Item Value Reference Range Interpretation Comments Bili Direct (test code = Bili Direct) no gt <=0.3 [facility] CenterAyqfyglITBUBCRZF9784-94-35 12:50:00 Test Item Value Reference Range Interpretation Comments Bili Indirect (test code Unable to Calculate <=1.0 = Bili Indirect) [place] 533773-02-21 12:50:00 Test Item Value Reference Range Interpretation Comments HS Troponin I (test code = HS Troponin 15 I) [facility] CenterFzzhvosJBELDBWIK7562-30-48 12:50:00 Test Item Value Reference Range Interpretation Comments pH Justin (test code = pH Justin) 7.35 1 7.28-7.42 [facility] CenterMiwrednXDVXUSNGD9851-63-75 12:50:00 Test Item Value Reference Range Interpretation Comments pCO2 Justin (test code = pCO2 Justin) 55 38-52 [facility] CenterBkoinaxFYPHZOIRE1620-42-78 12:50:00 Test Item Value Reference Range Interpretation Comments pO2 Justin (test code = pO2 Justin) 43 20-49 [facility] CenterKlofsaoYPTXBYOCA3113-61-94 12:50:00 Test Item Value Reference Range Interpretation Comments HCO3 Justin (test code = HCO3 Justin) 30 22-26 [facility] CenterJbqtcptZHCIZEFFW5380-32-74 12:50:00 Test Item Value Reference Range Interpretation Comments BE Justin (test code = BE Justin) 3 -2-2 [facility] CenterQelqhzwHBERTXMFO5763-28-31 12:50:00 Test Item Value Reference Range Interpretation Comments O2 Sat Justin (calc) (test code = O2 Sat 75.9 40.0-70.0 Justin (calc)) [facility] CenterEvjbrusTPUEEOFPJ7321-10-35 12:50:00 Test Item Value Reference Range Interpretation Comments Temp Justin (test code = Temp Justin) 37.0 [place] 036823-02-21 12:50:00 Test Item Value Reference Range Interpretation Comments ACT (TEG) Rapid (test code = ACT (TEG) 113 s 86-118 Rapid) [facility]ZXD5426[facility]79-31 12:50:00 Test Item Value Reference Range Interpretation Comments Split Point Rapid (test code = Split 0.6 min Point Rapid) [facility]EqpmcvsFTIPOVLZWI4745-76-33 12:50:00 Test Item Value Reference Range Interpretation Comments R-time Rapid (test code = R-time 0.7 min 0.4-0.7 Rapid) [place] [address]-02-21 12:50:00 Test Item Value Reference Range Interpretation Comments K-time Rapid (test code = K-time 1.1 min 0.6-2.3 Rapid) [place] [address]-02-21 12:50:00 Test Item Value Reference Range Interpretation Comments Angle Rapid (test code = Angle 78 degrees 64-80 Rapid) [place] [address]-02-21 12:50:00 Test Item Value Reference Range Interpretation Comments Max Amplitude Rapid (test code = Max 65 mm 52-71 Amplitude Rapid) [place] [address]-02-21 12:50:00 Test Item Value Reference Range Interpretation Comments G-value Rapid (test code = G-value 9.2 5.0-11.6 Rapid) [place] [address]-02-21 12:50:00 Test Item Value Reference Range Interpretation Comments Estimated % Lysis Rapid (test code = 0.0 <=7.5 Estimated % Lysis Rapid) [place] [address]-02-21 12:50:00 Test Item Value Reference Range Interpretation Comments Plt Morph (test code = See Note 1(11/21/22 Plt Morph) 6:50 AM) [place] [address]-02-21 12:50:00 Test Item Value Reference Range Interpretation Comments Stomatocyte (test code = Stomatocyte) slight [place] [address]-02-21 12:50:00 Test Item Value Reference Range Interpretation Comments WBC X 10x3 (test code = WBC X 10x3) 8.7 3.7-10.4 [place] [address]-02-21 12:50:00 Test Item Value Reference Range Interpretation Comments RBC X 10x6 (test code = RBC X 10x6) 3.56 4.20-5.40 [place] [address]-02-21 12:50:00 Test Item Value Reference Range Interpretation Comments Hgb (test code = Hgb) 10.4 12.0-16.0 [place] [address]-02-21 12:50:00 Test Item Value Reference Range Interpretation Comments Hct (test code = Hct) 32.3 36.0-48.0 [place] [address]-02-21 12:50:00 Test Item Value Reference Range Interpretation Comments MCV (test code = MCV) 90.8 80.0-98.0 [place] 036823-02-21 12:50:00 Test Item Value Reference Range Interpretation Comments MCH (test code = MCH) 29.3 pg 27.0-31.0 [place] 036823-02-21 12:50:00 Test Item Value Reference Range Interpretation Comments MCHC (test code = MCHC) 32.2 32.0-36.0 [place] 036823-02-21 12:50:00 Test Item Value Reference Range Interpretation Comments RDW (test code = RDW) 13.7 11.5-14.5 [place] [address]-02-21 12:50:00 Test Item Value Reference Range Interpretation Comments Platelet (test code = Platelet) 137 133-450 [place] 036823-02-21 12:50:00 Test Item Value Reference Range Interpretation Comments MPV (test code = MPV) 7.9 7.4-10.4 [place] [address]-02-21 12:50:00 Test Item Value Reference Range Interpretation Comments ACT (TEG) Rapid (test code = ACT (TEG) 113 s 86-118 Rapid) [place] 036823-02-21 12:50:00 Test Item Value Reference Range Interpretation Comments Split Point Rapid (test code = Split 0.6 min Point Rapid) [place] [address]-02-21 12:50:00 Test Item Value Reference Range Interpretation Comments R-time Rapid (test code = R-time 0.7 min 0.4-0.7 Rapid) [place] 036823-02-21 12:50:00 Test Item Value Reference Range Interpretation Comments K-time Rapid (test code = K-time 1.1 min 0.6-2.3 Rapid) [place] [address]-02-21 12:50:00 Test Item Value Reference Range Interpretation Comments Angle Rapid (test code = Angle 78 degrees 64-80 Rapid) [place] [address]-02-21 12:50:00 Test Item Value Reference Range Interpretation Comments Max Amplitude Rapid (test code = Max 65 mm 52-71 Amplitude Rapid) [place] 036823-02-21 12:50:00 Test Item Value Reference Range Interpretation Comments G-value Rapid (test code = G-value 9.2 5.0-11.6 Rapid) [place] 036823-02-21 12:50:00 Test Item Value Reference Range Interpretation Comments Estimated % Lysis Rapid (test code = 0.0 <=7.5 Estimated % Lysis Rapid) [place] 036823-02-21 12:50:00 Test Item Value Reference Range Interpretation Comments Plt Morph (test code = See Note 1(11/21/22 Plt Morph) 6:50 AM) [place] 036823-02-21 12:50:00 Test Item Value Reference Range Interpretation Comments Segs (test code = Segs) 64.1 45.0-75.0 [place] [address]-02-21 12:50:00 Test Item Value Reference Range Interpretation Comments Lymphocytes (test code = Lymphocytes) 22.0 20.0-40.0 [place] 036823-02-21 12:50:00 Test Item Value Reference Range Interpretation Comments Monocytes (test code = Monocytes) 8.3 2.0-12.0 [place] [address]-02-21 12:50:00 Test Item Value Reference Range Interpretation Comments Eosinophils (test code = Eosinophils) 4.7 <=4.0 [place] [address]-02-21 12:50:00 Test Item Value Reference Range Interpretation Comments Basophils (test code = Basophils) 0.9 <=1.0 [place] [address]-02-21 12:50:00 Test Item Value Reference Range Interpretation Comments Neutrophils # (test code = Neutrophils 5.6 1.5-8.1 #) [place] 036823-02-21 12:50:00 Test Item Value Reference Range Interpretation Comments Lymphocytes # (test code = Lymphocytes 1.9 1.0-5.5 #) [place] [address]-02-21 12:50:00 Test Item Value Reference Range Interpretation Comments Monocytes # (test code = Monocytes #) 0.7 <=0.8 [place] [address]-02-21 12:50:00 Test Item Value Reference Range Interpretation Comments Eosinophils # (test code = Eosinophils 0.4 <=0.5 #) [place] [address]-02-21 12:50:00 Test Item Value Reference Range Interpretation Comments Basophils # (test code = Basophils #) 0.1 <=0.2 [facility]czCQLMOFJPLD3408-34-39 12:50:00 Test Item Value Reference Range Interpretation Comments Stomatocyte (test code = Stomatocyte) slight [facility]OT[facility]SPD0796[facility] 12:50:00 Test Item Value Reference Range Interpretation Comments Ethanol Lvl (test code = Ethanol Lvl) no gt [facility]RgjpzglGQOPFOXUMD1401-87-22 12:50:00 Test Item Value Reference Range Interpretation Comments Etoh (%) (test code = Etoh (%)) no gt [facility] HospitalKfhaqcoFOUWLF6541-31-62 12:25:01 Test Item Value Reference Range Interpretation [...] and resurfacing of the patella.UT SECTION: ER [place] 55685023-02-21 11:23:44 Test Item Value Reference Range Interpretation [...] No significant midline shift. [facility]2020-12-07 10:24:00 Test Item Value Reference Range Interpretation Comments Glucose Lvl (test code = Glucose Lvl) 66 70-99 [place] 628290-12-07 10:24:00 Test Item Value Reference Range Interpretation Comments BUN (test code = BUN) 19 7-22 [place] 628290-12-07 10:24:00 Test Item Value Reference Range Interpretation Comments Creatinine Lvl (test code = Creatinine 1.82 0.50-1.40 Lvl) [facility]2020-12-07 10:24:00 Test Item Value Reference Range Interpretation Comments Sodium Lvl (test code = Sodium Lvl) 139 135-145 [place] 628290-12-07 10:24:00 Test Item Value Reference Range Interpretation Comments Potassium Lvl (test code = Potassium 4.2 3.5-5.1 Lvl) [place] 628290-12-07 10:24:00 Test Item Value Reference Range Interpretation Comments Chloride Lvl (test code = Chloride Lvl) 105 95-109 [place] 628290-12-07 10:24:00 Test Item Value Reference Range Interpretation Comments CO2 (test code = CO2) 28 24-32 [place] 628290-12-07 10:24:00 Test Item Value Reference Range Interpretation Comments Calcium Lvl (test code = Calcium Lvl) 8.2 8.5-10.5 [facility]2020-12-07 10:24:00 Test Item Value Reference Range Interpretation Comments AGAP (test code = AGAP) 10.2 10.0-20.0 [place] 628290-12-07 10:24:00 Test Item Value Reference Range Interpretation Comments eGFR (test code = eGFR) 26 [facility]JbhubngTWQTFXZFRI4924-47-80 10:24:00 Test Item Value Reference Range Interpretation Comments Segs (test code = Segs) 70.6 45.0-75.0 [facility]fieldLzavomwAXGFZBWSNU8224-45-26 10:24:00 Test Item Value Reference Range Interpretation Comments Lymphocytes (test code = Lymphocytes) 13.2 20.0-40.0 [place] 036820-12-07 10:24:00 Test Item Value Reference Range Interpretation Comments Monocytes (test code = Monocytes) 10.9 2.0-12.0 [facility]fieldXvnxsfqJABVAZXQZQ6519-25-07 10:24:00 Test Item Value Reference Range Interpretation Comments Eosinophils (test code = Eosinophils) 4.6 <=4.0 [facility]fieldToakatqKLVQLZSXQY4209-22-12 10:24:00 Test Item Value Reference Range Interpretation Comments Basophils (test code = Basophils) 0.7 <=1.0 [facility]fieldHaewswdVGUPVLXJPQ9545-27-94 10:24:00 Test Item Value Reference Range Interpretation Comments Neutrophils # (test code = Neutrophils 5.3 1.5-8.1 #) [facility]fieldPfcsajgGSJBQSVCMH7500-26-07 10:24:00 Test Item Value Reference Range Interpretation Comments Lymphocytes # (test code = Lymphocytes 1.0 1.0-5.5 #) [facility]fieldNshohorTXIGCZYFHE2620-62-59 10:24:00 Test Item Value Reference Range Interpretation Comments Monocytes # (test code = Monocytes #) 0.8 <=0.8 [facility]fieldThnmnirDCPAQQGWEN1851-16-40 10:24:00 Test Item Value Reference Range Interpretation Comments Eosinophils # (test code = Eosinophils 0.3 <=0.5 #) [facility]fieldMsfxicvANGFTDGAYX2191-67-60 10:24:00 Test Item Value Reference Range Interpretation Comments Basophils # (test code = Basophils #) 0.1 <=0.2 [facility]fieldKhqacrtOSPSBSXEAE9065-58-04 10:24:00 Test Item Value Reference Range Interpretation Comments WBC (test code = WBC) 7.5 3.7-10.4 [facility]fieldRmcwkllBIRWNIBEIL6879-02-82 10:24:00 Test Item Value Reference Range Interpretation Comments RBC (test code = RBC) 3.85 4.20-5.40 [facility]fieldFeuqmljFTZAFNMQHT0060-08-75 10:24:00 Test Item Value Reference Range Interpretation Comments Hgb (test code = Hgb) 10.6 12.0-16.0 [place] 036820-12-07 10:24:00 Test Item Value Reference Range Interpretation Comments Hct (test code = Hct) 32.1 36.0-48.0 [facility]fieldPalxxsrCRWDIPPBOI9697-95-59 10:24:00 Test Item Value Reference Range Interpretation Comments MCV (test code = MCV) 83.5 80.0-98.0 [place] [address]-12-07 10:24:00 Test Item Value Reference Range Interpretation Comments MCH (test code = MCH) 27.7 pg 27.0-31.0 [place] [address]-12-07 10:24:00 Test Item Value Reference Range Interpretation Comments MCHC (test code = MCHC) 33.1 32.0-36.0 [facility]fieldWbvlqhhXLPNAWZZWR0626-27-11 10:24:00 Test Item Value Reference Range Interpretation Comments RDW (test code = RDW) 16.8 11.5-14.5 [place] 036820-12-07 10:24:00 Test Item Value Reference Range Interpretation Comments Platelet (test code = Platelet) 185 133-450 [place] 036820-12-07 10:24:00 Test Item Value Reference Range Interpretation Comments MPV (test code = MPV) 8.4 7.4-10.4 [place] 628290-12-06 09:53:13 Test Item Value Reference Range Interpretation Comments Magnesium Lvl (test code = Magnesium 2.2 1.8-2.4 Lvl) [place] 628290-12-06 09:53:13 Test Item Value Reference Range Interpretation Comments Phosphorus (test code = Phosphorus) 2.9 2.5-4.5 [place] 628290-12-06 09:53:13 Test Item Value Reference Range Interpretation Comments Glucose Lvl (test code = Glucose Lvl) 102 70-99 [place] 628290-12-06 09:53:13 Test Item Value Reference Range Interpretation Comments BUN (test code = BUN) 17 7-22 [place] 628290-12-06 09:53:13 Test Item Value Reference Range Interpretation Comments Creatinine Lvl (test code = Creatinine 1.51 0.50-1.40 Lvl) [place] 628290-12-06 09:53:13 Test Item Value Reference Range Interpretation Comments Sodium Lvl (test code = Sodium Lvl) 140 135-145 [place] 628290-12-06 09:53:13 Test Item Value Reference Range Interpretation Comments Potassium Lvl (test code = Potassium 3.5 3.5-5.1 Lvl) [place] 628290-12-06 09:53:13 Test Item Value Reference Range Interpretation Comments Chloride Lvl (test code = Chloride Lvl) 106 95-109 [place] 628290-12-06 09:53:13 Test Item Value Reference Range Interpretation Comments CO2 (test code = CO2) 29 24-32 [place] 628290-12-06 09:53:13 Test Item Value Reference Range Interpretation Comments Calcium Lvl (test code = Calcium Lvl) 8.3 8.5-10.5 [place] 628290-12-06 09:53:13 Test Item Value Reference Range Interpretation Comments AGAP (test code = AGAP) 8.5 10.0-20.0 [place] 628290-12-06 09:53:13 Test Item Value Reference Range Interpretation Comments eGFR (test code = eGFR) 33 [place] 036820-12-06 09:53:13 Test Item Value Reference Range Interpretation Comments WBC (test code = WBC) 8.7 3.7-10.4 [place] 036820-12-06 09:53:13 Test Item Value Reference Range Interpretation Comments RBC (test code = RBC) 3.96 4.20-5.40 [place] [address]-12-06 09:53:13 Test Item Value Reference Range Interpretation Comments Hgb (test code = Hgb) 10.7 12.0-16.0 [place] 036820-12-06 09:53:13 Test Item Value Reference Range Interpretation Comments Hct (test code = Hct) 32.8 36.0-48.0 [place] 036820-12-06 09:53:13 Test Item Value Reference Range Interpretation Comments MCV (test code = MCV) 83.0 80.0-98.0 [place] [address]-12-06 09:53:13 Test Item Value Reference Range Interpretation Comments MCH (test code = MCH) 26.9 pg 27.0-31.0 [place] [address]-12-06 09:53:13 Test Item Value Reference Range Interpretation Comments MCHC (test code = MCHC) 32.4 32.0-36.0 [place] [address]-12-06 09:53:13 Test Item Value Reference Range Interpretation Comments RDW (test code = RDW) 16.5 11.5-14.5 [place] [address]-12-06 09:53:13 Test Item Value Reference Range Interpretation Comments Platelet (test code = Platelet) 157 133-450 [address]12-06 09:53:13 Test Item Value Reference Range Interpretation Comments MPV (test code = MPV) 7.5 7.4-10.4 [place] [address]-12-06 09:53:13 Test Item Value Reference Range Interpretation Comments Neutrophils # (test code = Neutrophils 7.2 1.5-8.1 #) [place] 036820-12-06 09:53:13 Test Item Value Reference Range Interpretation Comments Lymphocytes # (test code = Lymphocytes 0.9 1.0-5.5 #) [place] 036820-12-06 09:53:13 Test Item Value Reference Range Interpretation Comments Monocytes # (test code = Monocytes #) 0.5 <=0.8 [address]12-06 09:53:13 Test Item Value Reference Range Interpretation Comments Basophils # (test code = Basophils #) 0.1 <=0.2 [place] [address]-12-06 09:53:13 Test Item Value Reference Range Interpretation Comments Segs (test code = Segs) 83.0 45.0-75.0 [place] [address]-12-06 09:53:13 Test Item Value Reference Range Interpretation Comments Bands (test code = Bands) 0.0 <=11.0 [place] [address]-12-06 09:53:13 Test Item Value Reference Range Interpretation Comments Lymphocytes (test code = Lymphocytes) 10.0 20.0-40.0 [place] [address]-12-06 09:53:13 Test Item Value Reference Range Interpretation Comments Monocytes (test code = Monocytes) 6.0 2.0-12.0 [place] [address]-12-06 09:53:13 Test Item Value Reference Range Interpretation Comments Basophils (test code = Basophils) 1.0 <=1.0 [place] 036820-12-06 09:53:13 Test Item Value Reference Range Interpretation Comments Atypical Lymphs (test code = Atypical 0.0 Lymphs) [place] 036820-12-06 09:53:13 Test Item Value Reference Range Interpretation Comments RBC Morph (test code = Normal (09/05/20 3:53 RBC Morph) AM) [facility] 09:53:13 Test Item Value Reference Range Interpretation Comments Plt Morph (test code = Normal (09/05/20 3:53 Plt Morph) AM) [facility]oc[facility]co[facility]DKODVPRJ0467-69-56 09:53:00 Test Item Value Reference Range Interpretation Comments Coronavirus (COVID-19) Not Detected (09/05/20 JONATHAN (test code = 3:53 AM) Coronavirus (COVID-19) JONATHAN) [facility] VOZGKVK1598-24-14 04:34:00 Test Item Value Reference Range Interpretation Comments Troponin-I (test code = Troponin-I) no gt <=0.40 [facility] FIGVD2299-04-30 04:34:00 Test Item Value Reference Range Interpretation Comments Glucose Lvl (test code = Glucose Lvl) 125 70-99 [facility]2020-12-06 04:34:00 Test Item Value Reference Range Interpretation Comments BUN (test code = BUN) 17 7-22 [facility]2020-12-06 04:34:00 Test Item Value Reference Range Interpretation Comments Creatinine Lvl (test code = Creatinine 1.51 0.50-1.40 Lvl) [facility]2020-12-06 04:34:00 Test Item Value Reference Range Interpretation Comments Sodium Lvl (test code = Sodium Lvl) 142 135-145 [facility]2020-12-06 04:34:00 Test Item Value Reference Range Interpretation Comments Potassium Lvl (test code = Potassium 4.0 3.5-5.1 Lvl) [facility]2020-12-06 04:34:00 Test Item Value Reference Range Interpretation Comments Chloride Lvl (test code = Chloride Lvl) 108 95-109 [facility]2020-12-06 04:34:00 Test Item Value Reference Range Interpretation Comments CO2 (test code = CO2) 30 24-32 [facility]2020-12-06 04:34:00 Test Item Value Reference Range Interpretation Comments Calcium Lvl (test code = Calcium Lvl) 7.8 8.5-10.5 [facility]2020-12-06 04:34:00 Test Item Value Reference Range Interpretation Comments AGAP (test code = AGAP) 8.0 10.0-20.0 [facility]2020-12-06 04:34:00 Test Item Value Reference Range Interpretation Comments eGFR (test code = eGFR) 33 [facility] HospitalApaugqiWOFCKQKYAV1885-24-98 04:34:00 Test Item Value Reference Range Interpretation Comments WBC X 10x3 (test code = WBC X 10x3) 9.7 3.7-10.4 [facility]vocddfIYAGEXLLHJ4225-41-05 04:34:00 Test Item Value Reference Range Interpretation Comments RBC X 10x6 (test code = RBC X 10x6) 3.96 4.20-5.40 [facility] CenterFxawsblYPCUMENZYW1269-44-28 04:34:00 Test Item Value Reference Range Interpretation Comments Hgb (test code = Hgb) 10.6 12.0-16.0 [facility]KMNYPSIOHY8134-57-74 04:34:00 Test Item Value Reference Range Interpretation Comments Hct (test code = Hct) 32.6 36.0-48.0 [facility]fieldZegkcbpNTIKHBJYAM9219-33-49 04:34:00 Test Item Value Reference Range Interpretation Comments MCV (test code = MCV) 82.3 80.0-98.0 [facility] CenterTolzycdSOCHIEKOHY3716-79-27 04:34:00 Test Item Value Reference Range Interpretation Comments MCH (test code = MCH) 26.6 pg 27.0-31.0 [facility] CenterKuyogwbNSTZYKPSQX8722-96-49 04:34:00 Test Item Value Reference Range Interpretation Comments MCHC (test code = MCHC) 32.4 32.0-36.0 [facility] CenterBgdxfobOKTALYFIDO0297-51-13 04:34:00 Test Item Value Reference Range Interpretation Comments RDW (test code = RDW) 16.8 11.5-14.5 [facility]fieldXkiusaoLINHQEVFWZ9822-13-52 04:34:00 Test Item Value Reference Range Interpretation Comments Platelet (test code = Platelet) 178 133-450 [facility] CenterHtevtnwCBFVFITZIK5592-12-87 04:34:00 Test Item Value Reference Range Interpretation Comments MPV (test code = MPV) 8.0 7.4-10.4 [facility]fieldXmkvykfDVGMWAJDTY7995-87-84 04:34:00 Test Item Value Reference Range Interpretation Comments PT (test code = PT) 14.7 s 12.0-14.7 [facility]fieldTmfcypoJIKQJLOAIC3756-16-37 04:34:00 Test Item Value Reference Range Interpretation Comments INR (test code = INR) 1.14 1 0.85-1.17 [facility] CenterCwvrmhsPULUTURYPQ8293-97-33 04:34:00 Test Item Value Reference Range Interpretation Comments PTT (test code = PTT) 31.2 s 22.9-35.8 [facility] CenterJgxjwpdDMVULUTWDN2506-00-68 04:34:00 Test Item Value Reference Range Interpretation Comments Segs (test code = Segs) 73.9 45.0-75.0 [facility] CenterVptxwbbTLMRZBOIFG0231-34-09 04:34:00 Test Item Value Reference Range Interpretation Comments Lymphocytes (test code = Lymphocytes) 11.0 20.0-40.0 [facility] CenterTwzymbqWQWQGLEUKD0018-97-27 04:34:00 Test Item Value Reference Range Interpretation Comments Monocytes (test code = Monocytes) 13.6 2.0-12.0 [facility]fieldZrftralAXMBAHTAXH8158-60-79 04:34:00 Test Item Value Reference Range Interpretation Comments Eosinophils (test code = Eosinophils) 0.7 <=4.0 [facility] CenterWamfttdJPQOXKOJJO8689-25-26 04:34:00 Test Item Value Reference Range Interpretation Comments Basophils (test code = Basophils) 0.8 <=1.0 [facility] CenterIrkpctcVASFBVYYGR6434-36-51 04:34:00 Test Item Value Reference Range Interpretation Comments Neutrophils # (test code = Neutrophils 7.2 1.5-8.1 #) [facility]fieldSlquuvlEEFBNYRXHA1508-82-34 04:34:00 Test Item Value Reference Range Interpretation Comments Lymphocytes # (test code = Lymphocytes 1.1 1.0-5.5 #) [facility]fieldPwezqikRIMRODHABD0975-61-65 04:34:00 Test Item Value Reference Range Interpretation Comments Monocytes # (test code = Monocytes #) 1.3 <=0.8 [facility] CenterXkgrqlnUBYJKAXYHZ6563-94-71 04:34:00 Test Item Value Reference Range Interpretation Comments Eosinophils # (test code = Eosinophils 0.1 <=0.5 #) [facility]fieldAuavwvuVSXQILAWGR6284-87-61 04:34:00 Test Item Value Reference Range Interpretation Comments Basophils # (test code = Basophils #) 0.1 <=0.2 [facility] SHOULDER 2+ VW [id number] 17:54:27 Comminuted distal clavicle fracture. EXAM: XR SHOULDER 2+ VW RIGHT HISTORY: shoulder pain COMPARISON: None. FINDINGS: A comminuted fracture of the distal clavicle is seen. There is resultantmild widening of the acromioclavicular joint. Alignment is maintained atthe glenohumeral joint which exhibits osteoarthritic changes manifested byjoint space narrowing and osteophytosis. Osteopenia is suggested.At herosclerotic calcifications are present in the aortic arch. [facility]28/[facility] 12:55 PM CDTEXAM:XR SHOULDER 2+ VW RIGHTHISTORY:shoulder pain COMPARISON:None.FINDINGS: A comminuted fracture of the distal clavicle is seen. There is resultantmild widening of the acromioclavicular joint. Alignment is maintained atthe glenohumeral joint which exhibits osteoarthritic changes manifested byjoint space narrowing and osteophytosis. Osteopenia is suggested.Atherosclerotic calcifications are present in the aortic arch.IMPRESSIONComminuted distal clavicle fracture. [facility] [id number] 17:53:09 No acute bony abnormality. EXAM: XR FOREARM 2 VW RIGHT HISTORY: right arm pain COMPARISON: None. FINDINGS: Osteopenia is noted. 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 Mild osteoarthritic changes are present at theelbow. No acute fracture or dislocation is seen. [facility] 06/28/2020 12:54 PM CDTEXAM:XR FOREARM 2 VW RIGHTHISTORY:right arm pain COMPARISON:None.FINDINGS: Osteopenia is noted. 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 Mild osteoarthritic changes are present at theelbow. No acute fracture or dis location is seen.IMPRESSIONNo acute bony abnormality.[facility]
--- NOTE | 2023-08-23 20:59 | RAD REPORT ---
EXAM DESCRIPTION: RAD - Wrist Left 3 View - 08/23/2023 8:50 pm CLINICAL HISTORY: Left wrist pain status post injury FINDINGS: Fractures distal radius and ulna with marked displacement of fracture fragments. Widening of the distal radioulnar joint probably indicating ligamentous injury
--- NOTE | 2023-08-23 21:01 | RAD REPORT ---
EXAM DESCRIPTION: Vishnu Single View08/23/2023 8:50 pm CLINICAL HISTORY: Chest pain COMPARISON: August 02, 2023 FINDINGS: The lungs appear clear of acute infiltrate. The heart is borderline enlarged. Old distal right clavicular fracture IMPRESSION: No acute abnormalities displayed
[2023-08-23 21:08] LABS: Absolute Lymphocytes (CBC) 0.9 K/uL (0.7-4.9); Hematocrit 29.3 % (36.0-45.0); Lymphocytes % 8.6 % (15.3-44.8); MCV 84.5 fL (80-100); MPV 6.9 fL (7.6-11.3); Platelets 246 thou/uL (152-406); RBC Red Blood Cell Count 3.47 M/uL (3.86-4.86)
[2023-08-23 21:17] LABS: Protime INR 1.21
--- NOTE | 2023-08-23 21:20 | RAD REPORT ---
EXAM DESCRIPTION: CT - Head C Spine Mpr Wo Con - 08/23/2023 8:50 pm CLINICAL HISTORY: Head and neck injury status post fall. Head and neck pain COMPARISON: August 21, 2023 TECHNIQUE: Computed axial tomography of the head and cervical spine was obtained. Sagittal and coronal reconstruction was performed. All CT scans are performed using dose optimization technique as appropriate and may include automated exposure control or mA/KV adjustment according to patient size. FINDINGS: An intracranial bleed is not seen. The ventricles are normal in caliber. Mild low-density periventricular, deep and subcortical white matter probably ischemic changes seconda ry to small vessel disease. An extra-axial fluid collection is not noted. Fluid within the visualized sinuses and mastoids is not seen A cervical fracture is not visualized. No dislocation is noted. Mild anterior subluxation C2 on C3. Mild posterior subluxation C4 on C5 and C5 on C6. All is chronic. IMPRESSION: No acute intracranial abnormality is seen. A cervical fracture is not visualized. If the patient continues to have symptoms to suggest intracranial /spinal cord pathology then MRI wou ld be recommended
[2023-08-23] MEDS ORDERED: MORPHINE 2 MG/ML SYR ONE (21:22)
[2023-08-23 21:27] LABS: Troponin High Sensitivity 38.3 pg/mL (<58.9)
[2023-08-23] MEDS ORDERED: NA CHLORIDE 0.9% 500 ML ONE (22:02)
--- NOTE | 2023-08-23 22:08 | EDPHYS ---
Physician Documentation [facility] Name: Radha Bentley Age: 82 yrs Sex: Female : 1940 Arrival Date: 08/23/2023 Time: 20:11 Bed 3 Private MD: ED Physician González Shah HPI: 08/23 20:30 This 82 yrs old Female presents to ER via EMS with complaints of fall, wrist injury. rn 20:30 The patient or guardian reports decreased range of motion, deformity, injury, pain. The rn complaints affect the left wrist diffusely. Onset: The symptoms/episode began/occurred just prior to arrival. Modifying factors: The symptoms are alleviated by holding still, the symptoms are aggravated by movement. Associated signs and symptoms: Pertinent negatives: cyanosis distally, decreased sensation distally, fever, numbness distally, tingling distally. The patient has not experienced similar symptoms in the past. The patient has been recently seen by a physician:. Patient reports fall when getting out of bathroom, fell backward, hit head but no LOC, reports pain and injury to left wrist but denies any other injuries. Had a fall somewhat recently this week without traumatic findings. Patient was also in the emergency room yesterday with a chief complaint of bradycardia and discharged home at that time as well. Patient denies syncopal episode. Has COPD but on oxygen as needed and denies any new respiratory symptoms or changes.. Historical: - Allergies: 20:12 Avelox; jb4 20:12 Band-aid adhesive; jb4 - PMHx: 20:12 ADD/ADHD; COPD; Hyperlipidemia; Hypertension; Hypothyroidism; kidney disease; Heart jb4 Murmur; - PSHx: 20:12 breast reduction; Cholecystectomy; bilateral knee replacement; Shoulder replacment; jb4 - Family history:: not pertinent. - Hospitalizations: : No recent hospitalization is reported. ROS: 20:32 Constitutional: Negative for fever, chills, and weight loss, Eyes: Negative for injury, rn pain, redness, and discharge, Neck: Negative for injury, pain, and swelling, Cardiovascular: Negative for chest pain, palpitations, and edema, Respiratory: Negative for shortness of breath, cough, wheezing, and pleuritic chest pain, Abdomen/GI: Negative for abdominal pain, nausea, vomiting, diarrhea, and constipation, Back: Negative for injury and pain, MS/Extremity: Positive for left wrist injury and deformity Skin: Negative for injury, rash, and discoloration, Neuro: Positive for head injury, negative for numbness or tingling Exam: 20:32 Constitutional: This is a well developed, well nourished patient who is awake, alert, rn and in no acute distress. Head/Face: Normocephalic, ecchymosis to back of scalp without laceration or bleeding Eyes: Pupils equal round and reactive to light, extra-ocular motions intact. ENT: No oral injury noted Neck: No vertebral point tenderness or swelling Chest/axilla: No chest tenderness or splinting/guarding on exam Cardiovascular: Bradycardic, regular. No pulse deficits. Respiratory: Speaking full sentences. No increased work of breathing, no retractions or nasal flaring. Abdomen/GI: Soft, non-tender Back: No spinal tenderness. Skin: Warm, dry MS/ Extremity: Pulses equal, no cyanosis. Neurovascular intact. Deformity of left wrist with slight radial deviation of hand. No laceration but does have open bleeding wound that is subcentimeter in size overlying the mobile fragment of the distal ulna fracture. No cyanosis. Neuro: Awake and alert, GCS 15, oriented to person, place, time, and situation. Cranial nerves II-XII grossly intact. Motor strength 5/5 in all extremities. Sensory grossly intact. 20:48 ECG was reviewed by the Attending Physician. rn Vital Signs: 20:30 BP 120 / 58; Pulse 53; Resp 16; Temp 97.8(O); Pulse Ox 99% on R/A; Pain 9/10; jb4 21:58 BP 125 / 55; Pulse 60; Resp 16; Pulse Ox 97% on 2 lpm NC; Weight 68 kg (M); jb4 23:00 BP 118 / 56; Pulse 55; Resp 16; Pulse Ox 96% on R/A; jb4 23:51 BP 120 / 54; Pulse 60; Resp 16; Pulse Ox 100% on 2 lpm NC; jb4 20:30 Pain Scale: Adult jb4 Procedures: 23:05 Reduction: of the left wrist, using traction, manipulation, Immobilized with Plaster rn sugar-tong splint. Patient tolerated well. Post reduction film - reveals improved alignment. Moderate sedation: Pre-procedure assessment: the patient has been NPO 5 hour(s) prior to arrival, ASA physical classification: II - mild/mod systemic disease that does not interfere with daily routines, Airway assessment: able to hyperextend neck, able to maintain airway, can open mouth without difficulty, Monitoring during procedure: quality assurance monitor body, continuous pulse oximetry, nurse at bedside at all times, Medications employed: propofol, Post-procedure assessment: the patient is mildly sedated, Respiratory status: even and unlabored, a reversal agent was not used. 23:09 Reduction: During moderate sedation and reduction small wound noted to ulnar side rn overlying mobile fracture fragment, concern for open fracture that was not noted earlier as it was not bleeding. During sedation patient was irrigated and cleansed with Betadine, Xeroform placed over wound as well as 4 x 4's and splint applied.. MDM: 20:14 Patient medically screened. rn 22:03 Differential diagnosis: closed fracture, contusion. Differential diagnosis: rn Dehydration, acute on chronic kidney failure, UTI. Data reviewed: vital signs, nurses notes. 22:04 Consideration of Admission/Observation Patient was admitted/placed on observation. rn Escalation of care including admission/observation considered. Management of patient was discussed with the following: Hospitalist: Will see patient and admit. Care significantly affected by the following chronic conditions: Chronic Obstructive Pulmonary Disease, Chronic Kidney Disease. Counseling: I had a detailed discussion with the patient and/or guardian regarding the historical points, exam findings, and any diagnostic results supporting the discharge/admit diagnosis, lab results, radiology results, the need for further work-up and treatment in the hospital. ED course: Patient with acute on chronic kidney failure, dehydration, weakness with recurrent falls. Patient with closed left wrist fracture that will require reduction and splinting. Will require moderate sedation for this procedure. After sedation and reduction performed will admit to hospitalist service for further care. Patient can follow-up as an outpatient for orthopedic consultation and correction of the wrist fracture. Patient will be admitted for acute on chronic kidney failure and not for orthopedic injury.. 23:09 ED course: Transfer initiated for possible open fracture. rn 08/23 20:16 Order name: Basic Metabolic Panel; Complete Time: 21:28 rn 08/23 20:16 Order name: CBC with Diff; Complete Time: :27 rn 08/23 20:16 Order name: Protime (+inr); Complete Time: :27 rn 08/23 20:16 Order name: Ptt, Activated; Complete Time: 21:27 rn 08/23 20:16 Order name: Troponin High Sensitivity; Complete Time: 21:28 rn 08/23 20:15 Order name: CT Head C Spine; Complete Time: 21:27 rn 08/23 20:15 Order name: XRAY Wrist LEFT 3 view; Complete Time: 21:16 rn 08/23 20:16 Order name: Chest Single View XRAY; Complete Time: 21:16 rn 08/23 23:16 Order name: XRAY Wrist LEFT 2 view rv1 08/23 20:16 Order name: EKG; Complete Time: 20:16 rn 08/23 20:16 Order name: Cardiac monitoring; Complete Time: 20:39 rn 08/23 20:16 Order name: EKG - Nurse/Tech; Complete Time: 20:39 rn 08/23 20:16 Order name: IV Saline Lock; Complete Time: 21:19 rn 08/23 20:16 Order name: Labs collected and sent; Complete Time: 21:19 rn 08/23 20:16 Order name: NPO; Complete Time: 20:39 rn 08/23 20:16 Order name: O2 Per Protocol; Complete Time: 20:38 rn 08/23 20:16 Order name: O2 Sat Monitoring; Complete Time: 20:38 rn EC:48 Rate is 52 beats/min. Rhythm is regular. Left axis deviation noted. QRS is positive in rn lead I and negative in lead aVF. UT interval is prolonged at 230 msec. QRS interval is normal. QT interval is prolonged at 619 msec. No Q waves. T waves are Normal. No ST changes noted. Clinical impression: 1st degree heart block and Sinus bradycardia. Interpreted by me. Reviewed by me. Administered Medications: 20:38 CANCELLED (Duplicate Order): ondansetron 4 mg IVP once; over 2 minutes rn 21:15 Drug: morphine IVP or IV 2 mg IVP once over 4 mins Route: IVP; Infused Over: 4 mins; jb4 Site: right antecubital; 21:50 Drug: NS 0.9% IV 500 ml IV at bolus once Route: IV; Rate: bolus; Site: right jb4 antecubital; 23:17 Drug: Propofol IVP 120 mg IVP once; Document RASS score. Route: IVP; Site: right jb4 antecubital; 23:31 Drug: ceFAZolin IVPB 1 grams IVPB once Route: IVPB; Site: right antecubital; jb4 Disposition Summary: 08/23/23 23:07 Transfer Ordered Notes: Transfer Location: [facility] rn Reason: Higher level of care rn Condition: Stable(08/23/23 23:07) rn Problem: new(08/23/23 23:07) rn Symptoms: have improved(08/23/23 23:07) rn Accepting Physician: (08/24/23 00:46) jb4 Diagnosis - Displaced transverse fracture of shaft of left radius rn - Displaced transverse fracture of shaft of left ulna - Open fracture rn - Acute kidney failure, unspecified(08/23/23 23:07) rn - Muscle weakness (generalized)(08/23/23 23:07) rn - Repeated falls(08/23/23 23:07) rn Forms: - Medication Reconciliation Form rn - SBAR form rn Signatures: Dispatcher [employer] EDMS González Shah MD MD rn Bryson, James, RN RN jb4 Corrections: (The following items were deleted from the chart) 20:38 20:16 Ondansetron IVP 4 mg IVP once; over 2 minutes ordered. rn rn 23:05 22:07 Observation rn rn 23:05 22:07 Jin Cortez rn rn 23:05 22:07 Telemetry/MedSurg (observation) rn rn 23:05 22:07 Stable rn rn 23:05 22:07 new rn rn 23:05 22:07 have improved rn rn 23:05 22:07 Standard rn rn 23:05 22:07 rn rn 23:05 22:07 Acute kidney failure, unspecified rn rn 23:05 22:07 Muscle weakness (generalized) rn rn 23:05 22:07 Repeated falls rn rn 23:05 22:07 Displaced transverse fracture of shaft of left radius, initial encounter for rn closed fracture rn 23:05 22:07 Displaced transverse fracture of shaft of left ulna, initial encounter for closed rn fracture rn 23:08 20:32 Constitutional: This is a well developed, well nourished patient who is awake, rn alert, and in no acute distress. Head/Face: Normocephalic, ecchymosis to back of scalp without laceration or bleeding Eyes: Pupils equal round and reactive to light, extra-ocular motions intact. ENT: No oral injury noted Neck: No vertebral point tenderness or swelling Chest/axilla: No chest tenderness or splinting/guarding on exam Cardiovascular: Bradycardic, regular. No pulse deficits. Respiratory: Speaking full sentences. No increased work of breathing, no retractions or nasal flaring. Abdomen/GI: Soft, non-tender Back: No spinal tenderness. Skin: Warm, dry MS/ Extremity: Pulses equal, no cyanosis. Neurovascular intact. Deformity of left wrist with slight radial deviation of hand. No open wound or laceration. No cyanosis. Neuro: Awake and alert, GCS 15, oriented to person, place, time, and situation. Cranial nerves II-XII grossly intact. Motor strength 5/5 in all extremities. Sensory grossly intact. rn 23:10 23:05 Moderate sedation: Pre-procedure assessment: the patient has been NPO 5 hour(s) rn prior to arrival, ASA physical classification: II - mild/mod systemic disease that does not interfere with daily routines, Airway assessment: able to hyperextend neck, able to maintain airway, can open mouth without difficulty, Monitoring during procedure: quality assurance monitor body, continuous pulse oximetry, nurse at bedside at all times, Medications employed: propofol, Post-procedure assessment: the patient is mildly sedated, Respiratory status: even and unlabored, a reversal agent was not used, rn 08/24 00:46 08/23 23:07 Dr. navarrete jb4
--- NOTE | 2023-08-23 22:08 | ER ---
Nurse's Notes [facility] Name: Radha Bentley Age: 82 yrs Sex: Female : 1940 Arrival Date: 08/23/2023 Time: 20:11 Bed 3 Private MD: Diagnosis: Displaced transverse fracture of shaft of left radius;Displaced transverse fracture of shaft of left ulna-Open fracture;Acute kidney failure, unspecified;Muscle weakness (generalized);Repeated falls Presentation: 08/23 20:13 Chief complaint: EMS states: Pt called for a fall. Fell this morning and this evening jb4 when going to the restroom. Obvious deformity noted to the left wrist. Coronavirus screen: At this time, the client does not indicate any symptoms associated with coronavirus-19. Ebola Screen: No symptoms or risks identified at this time. Initial Sepsis Screen: Does the patient meet any 2 criteria? No. Patient's initial sepsis screen is negative. Does the patient have a suspected source of infection? No. Patient's initial sepsis screen is negative. Risk Assessment: Do you want to hurt yourself or someone else? Patient reports no desire to harm self or others. Onset of symptoms was August 23, 2023. Transition of care: patient was not received from another setting of care. 20:13 Method Of Arrival: EMS: [facility] jb4 20:13 Acuity: VAIBHAV 3 jb4 Historical: - Allergies: 20:12 Avelox; jb4 20:12 Band-aid adhesive; jb4 - PMHx: 20:12 ADD/ADHD; COPD; Hyperlipidemia; Hypertension; Hypothyroidism; kidney disease; Heart jb4 Murmur; - PSHx: 20:12 breast reduction; Cholecystectomy; bilateral knee replacement; Shoulder replacment; jb4 - Family history:: not pertinent. - Hospitalizations: : No recent hospitalization is reported. Screenin/24 00:44 [facility] ED Fall Risk Assessment (Adult) History of falling in the last 3 months, jb4 including since admission Yes- fall prone (multiple falls) (3 pts) Confusion or Disorientation No (0 pts) Score/Fall Risk Level 3 or more points = High Risk Oriented to surroundings, Maintained a safe environment. Abuse screen: Denies threats or abuse. Nutritional screening: No deficits noted. Tuberculosis screening: No symptoms or risk factors identified. Assessment: 08/23 20:30 General: Appears in no apparent distress. distressed, Behavior is calm, cooperative. jb4 Pain: Complains of pain in left arm Pain does not radiate. Pain currently is 8 out of 10 on a pain scale. Neuro: Level of Consciousness is awake, alert, obeys commands, Oriented to person, place, time, situation. Cardiovascular: Patient's skin is warm and dry. Respiratory: Airway is patent Respiratory effort is even, unlabored, Respiratory pattern is regular, symmetrical. GI: No signs and/or symptoms were reported involving the gastrointestinal system. : No signs and/or symptoms were reported regarding the genitourinary system. EENT: No signs and/or symptoms were reported regarding the EENT system. Derm: Skin is intact, Skin is pink, warm \T\ dry. Musculoskeletal: Circulation, motion, and sensation intact. Range of motion:. 21:59 Reassessment: Patient appears in no apparent distress at this time. Patient and/or jb4 family updated on plan of care and expected duration. Pain level reassessed. Patient is alert, oriented x 3, equal unlabored respirations, skin warm/dry/pink. 22:09 Reassessment: Conscious sedation consent form signed. jb4 22:09 Cardiovascular: Pulses are 3+ in left radial artery. Musculoskeletal: Capillary refill jb4 < 3 seconds, in right. 23:00 Reassessment: Patient appears in no apparent distress at this time. Patient and/or jb4 family updated on plan of care and expected duration. Pain level reassessed. Patient is alert, oriented x 3, equal unlabored respirations, skin warm/dry/pink. 08/24 00:03 Reassessment: Patient appears in no apparent distress at this time. Patient and/or jb4 family updated on plan of care and expected duration. Pain level reassessed. Patient is alert, oriented x 3, equal unlabored respirations, skin warm/dry/pink. Vital Signs: 08/23 20:30 BP 120 / 58; Pulse 53; Resp 16; Temp 97.8(O); Pulse Ox 99% on R/A; Pain 9/10; jb4 21:58 BP 125 / 55; Pulse 60; Resp 16; Pulse Ox 97% on 2 lpm NC; Weight 68 kg (M); jb4 23:00 BP 118 / 56; Pulse 55; Resp 16; Pulse Ox 96% on R/A; jb4 23:51 BP 120 / 54; Pulse 60; Resp 16; Pulse Ox 100% on 2 lpm NC; jb4 20:30 Pain Scale: Adult jb4 ED Course: 20:12 Patient arrived in ED. jb4 20:13 Arm band placed on right wrist. jb4 20:14 González Shah MD is Attending Physician. rn 20:15 Triage completed. jb4 20:50 CT Head C Spine In Process Unspecified. EDMS 20:52 XRAY Wrist LEFT 3 view In Process Unspecified. EDMS 20:52 Chest Single View XRAY In Process Unspecified. EDMS 22:05 Jin Cortez MD is Hospitalizing Provider. rn 23:02 Initiated transfer with Mary Anne at [facility]. rv1 23:[address] Hilario to [facility] [place] [place] ER. rv1 23:54 XRAY Wrist LEFT 2 view In Process Unspecified. EDMS 08/24 00:01 Johnnie Hernandez, RN is Primary Nurse. jb4 00:44 Patient has correct armband on for positive identification. Bed in low position. Call jb4 light in reach. Side rails up X 1. Client placed on continuous cardiac and pulse oximetry monitoring. NIBP monitoring applied. monitor car operator on. 00:44 No provider procedures requiring assistance completed. Patient transferred, IV remains jb4 in place. Administered Medications: 08/23 20:38 CANCELLED (Duplicate Order): ondansetron 4 mg IVP once; over 2 minutes rn 21:15 Drug: morphine IVP or IV 2 mg IVP once over 4 mins Route: IVP; Infused Over: 4 mins; jb4 Site: right antecubital; 21:50 Drug: NS 0.9% IV 500 ml IV at bolus once Route: IV; Rate: bolus; Site: right jb4 antecubital; 23:17 Drug: Propofol IVP 120 mg IVP once; Document RASS score. Route: IVP; Site: right jb4 antecubital; 23:31 Drug: ceFAZolin IVPB 1 grams IVPB once Route: IVPB; Site: right antecubital; jb4 Outcome: 22:07 Decision to Hospitalize by Provider. rn 23:07 ER care complete, transfer ordered by . rn 08/24 00:44 Transferred by ground EMS to [facility], Transfer form completed. X-rays jb4 sent w/ patient. Condition: stable Discharge instructions given to patient, Instructed on the need for transfer, Demonstrated understanding of instructions, 00:46 Patient left the ED. jb4 Signatures: Dispatcher [employer] EDGonzález Evans MD MD rn Bryson, James, RN RN jb4 Lois Ford rv1 Corrections: (The following items were deleted from the chart) 08/23 21:58 21:58 BP 125 / 55; Pulse 77bpm; Resp 60bpm; Pulse Ox 97% 2 lpm Nasal Cannula; 68 kg jb4 Measured; jb4
[2023-08-23] MEDS ORDERED: propofoL 200 MG/20 ML VIAL IV ONE (22:49)
[2023-08-23] MEDS ORDERED: CEFAZOLIN SODIUM 1 GM/VIAL ONE (23:34)
[2023-08-23] MEDS ORDERED: NA CHLORIDE 0.9% 50 ML ONE (23:34)
[2023-08-24 00:50] VITALS: TEMP 97.8
[2023-08-24 00:55] VITALS: BP 120/54; O2SAT 100
--- NOTE | 2023-08-24 19:44 | RAD REPORT ---
EXAM DESCRIPTION: RAD - Wrist Left 2 View - 08/23/2023 11:52 pm CLINICAL HISTORY: 82 years Female post reduction TECHNIQUE: 2 views of the left wrist. COMPARISON: No prior exams provided for comparison. FINDINGS: Plaster cast Splint obscures osseous detail. There is an acute fracture of the left distal radial metaphysis with mild dorsal angulation and appro ximately 1 cm radial displacement. No dislocation. No other visualized acute fracture. IMPRESSION: Impacted and displaced left distal radial fracture. Orthopedic evaluation recommended. Electronically signed by: Gala Amezcua MD 08/23/2023 11:59 PM CONSULTING HR PROFESSIONAL Due to temporary technical issues with the PACS/Fluency reporting system, reports are being signed by the in house radiologists without review as a courtesy to insure prompt reporting. The interpreting radiologist is fully responsible for the content of the report.
--- NOTE | 2023-08-27 16:57 | EKG ---
Test Date: 2023-08-23 Test Time: 20:35:51 Leather Stamper: MANA MEASUREMENT RESULTS: Intervals: Rate: 52 NV: 230 QRSD: 138 QT: 666 QTc: 619 Ida: P: 78 NV: 230 QRS: -34 T: 3 INTERPRETIVE STATEMENTS: Sinus bradycardia with 1st degree AV block Left axis deviation Left ventricular hypertrophy with QRS widening T wave abnormality, consider anterolateral ischemia Abnormal ECG Compared to ECG 08/22/2023 16:24:01 Myocardial infarct finding no longer present T-wave abnormality still present Possible ischemia still present Electronically Signed On 08-27-23 16:53:09 TONGSMAN by Andre Arriaga
== END 2023-08-24 00:46 | disposition short-term general hospital (02) ==
LOC: ER 20:11
PROC: 0PSJXZZ Reposition Left Radius, External Approach (ICD-10-PCS; principal; 2023-08-23)
PROC: 0PSL0ZZ Reposition Left Ulna, Open Approach (ICD-10-PCS; 2023-08-23)
PROC: 2W3DX1Z Immobilization of Left Lower Arm using Splint (ICD-10-PCS; 2023-08-23)
DX: S52.322A Displaced transverse fracture of shaft of left radius, initial encounter for closed fracture (principal); S52.222B Displaced transverse fracture of shaft of left ulna, initial encounter for open fracture type I or II; W18.30XA Fall on same level, unspecified, initial encounter; Y92.002 Bathroom of unspecified non-institutional (private) residence as the place of occurrence of the external cause; F90.9 Attention-deficit hyperactivity disorder, unspecified type; E78.5 Hyperlipidemia, unspecified; I10 Essential (primary) hypertension; E03.9 Hypothyroidism, unspecified; R01.1 Cardiac murmur, unspecified
CPT/HCPCS: 93005; 85025; 80048; 36415; 85610; 85730; 84484; 70450; 72125; 71045; 73110; 73100; 96375; 96374; 99285; 25565; J2704; J2270; J7040; J0690

== ENCOUNTER → 2023-10-09 | Emergency (ER) | payer MEDICAID, MEDICARE ==
[~2023-10-09] MED LIST: HYDROCODONE/APAP 5/325 MG TAB ONE
--- NOTE | 2023-10-09 18:27 | RAD REPORT ---
EXAM DESCRIPTION: CT - [id number] - 10/09/2023 6:18 pm CLINICAL HISTORY: Trauma, head and neck injury. fall COMPARISON: Head C Spine Mpr Wo Con dated 08/23/2023 TECHNIQUE: Axial 5 mm thick images of the head were obtained. Axial 2 mm thick images of the cervical spine were obtained with sagittal and coronal reconstruction images generated and reviewed. All CT scans are performed using dose optimization technique as appropriate and may include automated exposure control or mA/KV adjustment according to patient size. FINDINGS: CT HEAD WITHOUT CONTRAST: No acute hemorrhage, hydrocephalus or extra-axial collection is identified.No areas of brain edema or midline shift. Moderate chronic small vessel ischemic changes The paranasal sinuses and mastoids are clear.The calvarium is intact. CT CERVICAL SPINE WITHOUT CONTRAST: No fracture or subluxation.No prevertebral soft tissues swelling is identified. Reversal of the edy l cervical lordosis likely due to severe cervical spondylosis. There is evidence of neural foraminal narrowing particularly bilaterally at C5-6. Anterolisthesis of C2 on C3 likely related underlying deg enerative changes. Trace retrolisthesis of C4 on C5 and C5 on C6 also likely related underlying degen erative changes. IMPRESSION: No acute intracranial or cervical spine findings.
--- NOTE | 2023-10-09 18:37 | EDPHYS ---
Physician Documentation [facility] Name: Radha Bentley Age: 82 yrs Sex: Female : 1940 Arrival Date: 10/09/2023 Time: 16:53 Bed Treatment Private MD: ED Physician Lorrie Cleveland HPI: 10/09 17:04 This 82 yrs old Female presents to ER via EMS with complaints of Fall Injury. ms3 17:04 82-year-old female with past medical history of ADD/ADHD, COPD, heart murmur, ms3 hyperlipidemia, hypertension, hypothyroidism presents to the emergency department via [facility] status post fall striking her head. Patient states she was putting items in her pantry when she lost her balance falling backwards. EMS notes blood pressure was 173/111. Patient states her pain is a 7/10 located in the left posterior head. Patient denies any alleviating or inciting factors. Historical: - Allergies: 16:57 Avelox; iw 16:57 Band-aid adhesive; iw - PMHx: 16:57 ADD/ADHD; COPD; Heart Murmur; Hyperlipidemia; Hyperlipidemia; Hypertension; iw Hypothyroidism; kidney disease; - PSHx: 16:57 bilateral knee replacement; breast reduction; Cholecystectomy; Shoulder replacment; iw ROS: 17:04 Constitutional: Negative for fever, and chills. ENT: Negative for injury, pain, and ms3 discharge, Neck: Negative for injury, pain, and swelling, Cardiovascular: Negative for chest pain, and palpitations. Respiratory: Negative for shortness of breath, cough, wheezing, and pleuritic chest pain, Abdomen/GI: Negative for abdominal pain, nausea, vomiting, diarrhea, and constipation, MS/Extremity: Negative for injury and deformity, 17:04 Skin: Positive for laceration(s), of the scalp laceration, 17:04 All other systems are negative, Exam: 17:04 Constitutional: This is a well developed, well nourished patient who is awake, alert, ms3 and in no acute distress. 17:04 Head/face: Noted is a laceration(s), that is linear, of the scalp, Vital Signs: 17:05 BP 131 / 70; Pulse 69; Resp 16; Temp 97.5; Pulse Ox 98% on R/A; Weight 64.86 kg; Height iw 4 ft. 11 in. ; Pain 7/10; 19:13 BP 149 / 66; Pulse 77; Pulse Ox 97% on R/A; Pain 0/10; tm6 17:05 Body Mass Index 28.88 (64.86 kg, 149.86 cm) iw 17:05 Pain Scale: Adult iw 19:13 Pain Scale: Adult tm6 Laceration: 19:12 Wound Repair of 2cm ( 0.8in ) subcutaneous laceration to scalp. Linear shaped.. gb1 Hemostasis noted.. Distal neuro/vascular/tendon intact. Skin closed with 3 1-0 Apurva using staple gun. Patient tolerated well. MDM: 17:02 Patient medically screened. kb 17:04 Differential diagnosis: abrasion, closed head injury, contusion, fracture, sprain, ms3 strain. 19:12 Data reviewed: vital signs, nurses notes. gb1 19:12 ED course: Ice septic clinical transition of care from Dr. Gambino pending CT brain and gb1 laceration repair. I repaired the patient's scalp laceration with #3 apurva. She tolerated the procedure well please see the attached procedure note to this medical encounter. I advised her to have the apurva removed in 5 to 7 days to which she is compliant to prior discharge home today with her son by POV. Patient is awake alert and shows no signs of acute neurological deficit. CT scan was reviewed by me of the brain which was negative for any acute intracranial injuries. No subdural arachnoid hemorrhage, no skull fracture or subdural hematoma was appreciated on that imaging.. 10/09 17:04 Order name: CT Head C Spine; Complete Time: 18:32 ms3 Administered Medications: 17:39 Drug: HYDROcodone-acetaminophen PO 5 mg-325 mg 1 tabs PO once Route: PO; kc6 Disposition Summary: 10/09/23 18:36 Discharge Ordered Notes: Location: Home gb1 Problem: new gb1 Symptoms: have improved gb1 Condition: Stable gb1 Diagnosis - Scalp Laceration/ Open wound of scalp gb1 - Fall (on)(from) incline gb1 Followup: gb1 - With: Private Physician - When: - Reason: Re-evaluation by your physician Discharge Instructions: - Discharge Summary Sheet gb1 - Sutures, Apurva, or Adhesive Wound Closure gb1 - Laceration Care, Adult, [id number] gb1 Forms: - Medication Reconciliation Form gb1 - Thank You Letter gb1 - Antibiotic Education gb1 - Prescription Opioid Use gb1 - Patient Portal Instructions gb1 - Leadership Thank You Letter gb1 Signatures: Dispatcher [employer] Alycia Enriquez FNP-C FNP-Lula Sagastume, RN RN Francois Arias DO DO ms3 Aurelia Gibbons RN RN kc6 Lorrie Cleveland MD MD gb1
--- NOTE | 2023-10-09 18:37 | ER ---
Nurse's Notes [facility] Name: Radha Bentley Age: 82 yrs Sex: Female : 1940 Arrival Date: 10/09/2023 Time: 16:53 Bed Treatment Private MD: Diagnosis: Scalp Laceration/ Open wound of scalp;Fall (on)(from) incline Presentation: 10/09 16:56 Chief complaint: EMS states: pt was putting stuff in a cabinet and she lost her balance iw , fell back and hit her head, no LOC, unknown blood thinners, has small,laceration to back of head. 16:56 Acuity: VAIBHAV 3 iw 16:57 Coronavirus screen: At this time, the client does not indicate any symptoms associated iw with coronavirus-19. Ebola Screen: Patient negative for fever greater than or equal to 101.5 degrees Fahrenheit, and additional compatible Ebola Virus Disease symptoms Patient denies exposure to infectious person. Patient denies travel to an Ebola-affected area in the 21 days before illness onset. No symptoms or risks identified at this time. Initial Sepsis Screen: Does the patient meet any 2 criteria? No. Patient's initial sepsis screen is negative. Does the patient have a suspected source of infection? No. Patient's initial sepsis screen is negative. Risk Assessment: Do you want to hurt yourself or someone else? Patient reports no desire to harm self or others. Onset of symptoms was October 09, 2023. 16:57 Method Of Arrival: EMS: [facility] iw Historical: - Allergies: 16:57 Avelox; iw 16:57 Band-aid adhesive; iw - PMHx: 16:57 ADD/ADHD; COPD; Heart Murmur; Hyperlipidemia; Hyperlipidemia; Hypertension; iw Hypothyroidism; kidney disease; - PSHx: 16:57 bilateral knee replacement; breast reduction; Cholecystectomy; Shoulder replacment; iw Screenin:00 [facility] ED Fall Risk Assessment (Adult) History of falling in the last 3 months, kc6 including since admission Yes- single mechanical fall (1 pt) Confusion or Disorientation No (0 pts) Intoxicated or Sedated No (0 pts) Impaired Gait No (0 pts) Mobility Assist Device Used No (0 pt) Altered Elimination No (0 pt) Score/Fall Risk Level 0 - 2 = Low Risk. Abuse screen: Denies threats or abuse. Denies injuries from another. Nutritional screening: No deficits noted. Tuberculosis screening: No symptoms or risk factors identified. Assessment: 17:00 General: Appears in no apparent distress. comfortable, well groomed, well developed, kc6 Behavior is calm, cooperative, appropriate for age. Pain: Complains of pain in scalp. Neuro: Level of Consciousness is awake, alert, obeys commands, Oriented to person, place, time, situation, Appropriate for age. Cardiovascular: Capillary refill < 3 seconds. Respiratory: Airway is patent Trachea midline Respiratory effort is even, unlabored, Respiratory pattern is regular, symmetrical. GI: No signs and/or symptoms were reported involving the gastrointestinal system. : No signs and/or symptoms were reported regarding the genitourinary system. EENT: No signs and/or symptoms were reported regarding the EENT system. Derm: Skin is healthy with good turgor, Skin is pink, warm \T\ dry. Musculoskeletal: No signs and/or symptoms reported regarding the musculoskeletal system. Circulation, motion, and sensation intact. Capillary refill < 3 seconds, Range of motion: intact in all extremities. Injury Description: Laceration sustained to scalp is clean, superficial, was sustained 30-60 minutes ago. a small amount of bleeding noted at this time. 18:00 Reassessment: Patient appears in no apparent distress at this time. No changes from kc6 previously documented assessment. Patient and/or family updated on plan of care and expected duration. Pain level reassessed. Patient is alert, oriented x 3, equal unlabored respirations, skin warm/dry/pink. 19:13 Reassessment: Patient appears in no apparent distress at this time. Patient and/or tm6 family updated on plan of care and expected duration. Pain level reassessed. Patient is alert, oriented x 3, equal unlabored respirations, skin warm/dry/pink. Patient states feeling better. Vital Signs: 17:05 BP 131 / 70; Pulse 69; Resp 16; Temp 97.5; Pulse Ox 98% on R/A; Weight 64.86 kg; Height iw 4 ft. 11 in. ; Pain 7/10; 19:13 BP 149 / 66; Pulse 77; Pulse Ox 97% on R/A; Pain 0/10; tm6 17:05 Body Mass Index 28.88 (64.86 kg, 149.86 cm) iw 17:05 Pain Scale: Adult iw 19:13 Pain Scale: Adult tm6 ED Course: 16:55 Patient arrived in ED. iw 16:57 Triage completed. iw 16:58 Arm band placed on. iw 17:00 Patient has correct armband on for positive identification. Bed in low position. Call kc6 light in reach. Side rails up X2. Adult w/ patient. Client placed on continuous cardiac and pulse oximetry monitoring. NIBP monitoring applied. 17:00 Patient maintains SpO2 saturation greater than 95% on room air. kc6 17:02 Francois Gambino DO is Attending Physician. kb 17:34 Aurelia Gibbons, RN is Primary Nurse. kc6 18:19 CT Head C Spine In Process Unspecified. EDMS 18:33 Attending Physician role handed off by Francois Gambino DO gb1 18:33 Lorrie Cleveland MD is Attending Physician. gb1 19:13 No provider procedures requiring assistance completed. Patient did not have IV access tm6 during this emergency room visit. 19:14 Provided Education on:. tm6 Administered Medications: 17:39 Drug: HYDROcodone-acetaminophen PO 5 mg-325 mg 1 tabs PO once Route: PO; kc6 Medication: 19:14 VIS not applicable for this client. tm6 Outcome: 18:36 Discharge ordered by . gb1 19:13 Discharged to home via wheelchair, with family, tm6 19:13 Condition: stable 19:13 Discharge instructions given to patient, family, Instructed on discharge instructions, follow up and referral plans. Demonstrated understanding of instructions, follow-up care, 19:14 Patient left the ED. tm6 Signatures: Dispatcher [employer] EDAlycia Mckeon, DELI BAKERY CLERK-C DELI BAKERY CLERK-CkLula Livingston, RN RN iw Francois Gambino DO DO ms3 Aurelia Gibbons, RN RN kc6 Lorrie Cleveland MD MD gb1 Emmett Stahl RN RN tm6
[2023-10-09 22:02] VITALS: BP 149/66; TEMP 97.5; O2SAT 97
== END ==
LOC: ER 16:53
PROC: 0JQ03ZZ Repair Scalp Subcutaneous Tissue and Fascia, Percutaneous Approach (ICD-10-PCS; principal; 2023-10-09)
DX: S01.01XA Laceration without foreign body of scalp, initial encounter (principal); W19.XXXA Unspecified fall, initial encounter; Y93.89 Activity, other specified; J44.9 Chronic obstructive pulmonary disease, unspecified; I10 Essential (primary) hypertension; E78.5 Hyperlipidemia, unspecified; R01.1 Cardiac murmur, unspecified; E03.9 Hypothyroidism, unspecified; Z88.8 Allergy status to other drugs, medicaments and biological substances; Z91.09 Other allergy status, other than to drugs and biological substances
CPT/HCPCS: 70450; 72125; 99284

== ENCOUNTER → 2023-11-01 | Emergency (ER) | payer MEDICAID ==
[~2023-11-01] MED LIST changes: -HYDROCODONE/APAP 5/325 MG TAB ONE; +MORPHINE 4 MG/ML SYR ONE; +ONDANSETRON 4 MG (ODT) TAB ONE
--- NOTE | 2023-11-01 23:28 | EDPHYS ---
Physician Documentation [facility] Name: Radha Bentley Age: 82 yrs Sex: Female : 1940 Arrival Date: 11/01/2023 Time: 21:14 Bed 19 Private MD: ED Physician Ashish Morales HPI: 11/01 22:05 This 82 yrs old Female presents to ER via EMS with complaints of fall, rib pain. sb4 22:05 Patient states that she was caring something heavy and lost her balance and fell. She sb4 states that she fell onto her ribs and is complaining of pain there. She denies any loss of consciousness. No other injury sustained. Historical: - Allergies: 21:23 Avelox; me1 21:23 Band-aid adhesive; me1 - PMHx: 21:23 ADD/ADHD; COPD; Heart Murmur; Hyperlipidemia; Hypertension; Hypothyroidism; kidney me1 disease; - PSHx: 21:23 bilateral knee replacement; Cholecystectomy; breast reduction; Shoulder replacment; me1 - Immunization history:: Adult Immunizations unknown. - Social history:: Smoking status: Patient/guardian denies using tobacco, but has a distant history of tobacco abuse. ROS: 22:05 Constitutional: Negative for fever, chills, and weight loss, sb4 22:05 MS/extremity: Positive for pain, of the right lateral posterior chest, 22:05 All other systems are negative, Exam: 22:05 Constitutional: This is a well developed, well nourished patient who is awake, alert, sb4 and in no acute distress. Head/Face: Normocephalic, atraumatic. Eyes: Extra-ocular motions intact. Periorbital areas with no swelling, redness, or edema. ENT: Mucous membranes moist. Cardiovascular: Regular rate and rhythm with a normal S1 and S2. Respiratory: Lungs have equal breath sounds bilaterally, clear to auscultation and percussion. No rales, rhonchi or wheezes noted. No increased work of breathing, no retractions or nasal flaring. Abdomen/GI: Soft, non-tender, no distension. Skin: Warm, dry with normal turgor. Normal color with no rashes, no lesions, and no evidence of cellulitis. MS/ Extremity: Pulses equal, no cyanosis. Neurovascular intact. Full, normal range of motion. Neuro: Awake and alert, GCS 15, oriented to person, place, time, and situation. Motor strength 5/5 in all extremities. Sensory grossly intact. 22:05 Chest/axilla: Inspection: no acute changes, Palpation: tenderness, that is moderate, of the right lateral posterior chest, that partially reproduces the patient's complaints, Vital Signs: 21:11 BP 139 / 69; Pulse 69; Resp 18; Temp 97.9(O); Pulse Ox 98% on R/A; Weight 64.41 kg; me1 Height 4 ft. 11 in. ; Pain 7/10; 21:45 BP 175 / 66; Pulse 69; Resp 19; Pulse Ox 97% on R/A; me1 23:15 BP 166 / 65; Pulse 79; Resp 19; Pulse Ox 95% on R/A; me1 23:49 BP 164 / 72; Pulse 78; Resp 19; Pulse Ox 99% on R/A; me1 21:11 Body Mass Index 28.68 (64.41 kg, 149.86 cm) me1 21:11 Pain Scale: Adult me1 MDM: 21:24 Patient medically screened. sb4 22:05 Differential diagnosis: contusion, fracture. sb4 23:26 Data reviewed: vital signs, nurses notes, radiologic studies, and as a result, I will sb4 discharge patient. Counseling: I had a detailed discussion with the patient and/or guardian regarding the historical points, exam findings, and any diagnostic results supporting the discharge/admit diagnosis, the presence of at least one elevated blood pressure reading (>120/80) during this emergency department visit, radiology results, to return to the emergency department if symptoms worsen or persist or if there are any questions or concerns that arise at home. 02 22:02 Order name: CT Chest Wo Con sb4 11/01 23:31 Order name: INCENTIVE SPIROMETRY sb4 Administered Medications: 21:45 Drug: HYDROcodone-acetaminophen PO 5 mg-325 mg 1 tabs PO once Route: PO; me1 22:13 Follow up: Response: No adverse reaction; Pain is decreased me1 21:45 Drug: Acetaminophen PO 650 mg PO once Route: PO; me1 22:13 Follow up: Response: No adverse reaction; Pain is decreased me1 23:34 Drug: Ondansetron PO 4 mg PO once Route: PO; me1 23:42 Follow up: Response: No adverse reaction; Nausea is decreased me1 23:35 Drug: morphine IM 4 mg IM once Route: IM; Site: right deltoid; me1 23:42 Follow up: Response: No adverse reaction; Pain is decreased me1 Disposition: 11/02 00:42 Co-signature as Attending Physician, Ashish Morales MD I reviewed the patient's care rt provided by the Advanced Practice Provider and agree with the diagnosis and treatment plan. Disposition Summary: 11/01/23 23:28 Discharge Ordered Notes: Location: Home sb4 Problem: new sb4 Symptoms: are unchanged sb4 Condition: Stable sb4 Diagnosis - Multiple fractures of ribs, right side sb4 Followup: sb4 - With: Emergency Department - When: As needed - Reason: Recheck today's complaints, Re-evaluation by your physician Discharge Instructions: - Discharge Summary Sheet sb4 - How to Use an Incentive Spirometer sb4 - Rib Fracture, [id number] sb4 Forms: - Medication Reconciliation Form sb4 - Thank You Letter sb4 - Antibiotic Education sb4 - Prescription Opioid Use sb4 - Patient Portal Instructions sb4 - Leadership Thank You Letter sb4 Prescriptions: - acetaminophen-codeine 300-30 mg Oral tablet - take 2 tablet ORAL route every 6 hours; 20 tablet; Refills: 0, Product sb4 Selection Permitted Signatures: Dispatcher [employer] Carina Lentz PA-C PAKaelyn sb4 Ashish Morales MD MD rt Cary Aparicio RN RN me1 Corrections: (The following items were deleted from the chart) 11/01 22:12 21:31 Ribs Right+RAD.RAD.BRZ ordered. GIANFRANCO MEDEL
--- NOTE | 2023-11-01 23:28 | ER ---
Nurse's Notes [facility] Name: Radha Bentley Age: 82 yrs Sex: Female : 1940 Arrival Date: 11/01/2023 Time: 21:14 Bed 19 Private MD: Diagnosis: Multiple fractures of ribs, right side Presentation: 11/01 21:11 Chief complaint: EMS states: toned out for fall. s/p fall about 8:30 pm. c/o right rib me1 pain and bilateral shoulder pain. No meds given by EMS. Coronavirus screen: Vaccine status: Patient reports receiving the 2nd dose of the covid vaccine. Ebola Screen: No symptoms or risks identified at this time. Initial Sepsis Screen: Does the patient meet any 2 criteria? No. Patient's initial sepsis screen is negative. Does the patient have a suspected source of infection? No. Patient's initial sepsis screen is negative. Risk Assessment: Do you want to hurt yourself or someone else? Patient reports no desire to harm self or others. Onset of symptoms was November 01, 2023 at 20:30. 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 c/o right rib pain. States her son tried to help her up from her chair yesterday and now she has bilateral shoulder pain. Pain: Complains of pain in right ribs Pain does not radiate. Pain currently is 7 out of 10 on a pain scale. Quality of pain is described as sharp, Pain began suddenly, Is continuous. Neuro: Level of Consciousness is awake, alert, obeys commands, Oriented to person, place, time, situation, Appropriate for age. Cardiovascular: Capillary refill < 3 seconds Patient's skin is warm and dry. Respiratory: Airway is patent Trachea midline Respiratory effort is even, unlabored, Respiratory pattern is regular, symmetrical. Musculoskeletal: Reports pain in right rib. 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 Historical: - Allergies: 21:23 Avelox; me1 21:23 Band-aid adhesive; me1 - PMHx: 21:23 ADD/ADHD; COPD; Heart Murmur; Hyperlipidemia; Hypertension; Hypothyroidism; kidney me1 disease; - PSHx: 21:23 bilateral knee replacement; Cholecystectomy; breast reduction; Shoulder replacment; me1 - Immunization history:: Adult Immunizations unknown. - Social history:: Smoking status: Patient/guardian denies using tobacco, but has a distant history of tobacco abuse. Screenin:26 [facility] ED Fall Risk Assessment (Adult) History of falling in the last 3 months, me1 including since admission Yes- fall prone (multiple falls) (3 pts) Confusion or Disorientation No (0 pts) Intoxicated or Sedated No (0 pts) Impaired Gait Yes (1 pt) Mobility Assist Device Used Yes (1 pt) Altered Elimination No (0 pt) Score/Fall Risk Level 3 or more points = High Risk Maintained a safe environment, Provided non-skid footwear, Hourly rounding (assess needs \T\ fall precautionary measures) done, Used ambulatory aids as needed (educated on \T\ assisted with). Abuse screen: Denies threats or abuse. Nutritional screening: No deficits noted. Tuberculosis screening: No symptoms or risk factors identified. Assessment: 21:26 General: see triage assessment. . me1 Vital Signs: 21:11 BP 139 / 69; Pulse 69; Resp 18; Temp 97.9(O); Pulse Ox 98% on R/A; Weight 64.41 kg; me1 Height 4 ft. 11 in. ; Pain 7/10; 21:45 BP 175 / 66; Pulse 69; Resp 19; Pulse Ox 97% on R/A; me1 23:15 BP 166 / 65; Pulse 79; Resp 19; Pulse Ox 95% on R/A; me1 23:49 BP 164 / 72; Pulse 78; Resp 19; Pulse Ox 99% on R/A; me1 21:11 Body Mass Index 28.68 (64.41 kg, 149.86 cm) me1 21:11 Pain Scale: Adult az1 ED Course: 21:17 Patient arrived in ED. jj6 21:18 Cary Aparicio, RN is Primary Nurse. me1 21:23 Triage completed. me1 21:23 Arm band placed on Patient placed in an exam room. me1 21:24 Carina Ivey PA-C is PHCP. sb4 21:24 Ashish Morales MD is Attending Physician. sb4 21:26 Patient has correct armband on for positive identification. Bed in low position. Call me1 light in reach. Side rails up X2. Provided Education on: POC. Verbalized understanding. . 21:26 No provider procedures requiring assistance completed. me1 22:38 CT Chest Wo Con In Process Unspecified. EDMS 23:34 INCENTIVE SPIROMETRY Sent. me1 23:49 Patient did not have IV access during this emergency room visit. me1 Administered Medications: 21:45 Drug: HYDROcodone-acetaminophen PO 5 mg-325 mg 1 tabs PO once Route: PO; me1 22:13 Follow up: Response: No adverse reaction; Pain is decreased me1 21:45 Drug: Acetaminophen PO 650 mg PO once Route: PO; me1 22:13 Follow up: Response: No adverse reaction; Pain is decreased me1 23:34 Drug: Ondansetron PO 4 mg PO once Route: PO; me1 23:42 Follow up: Response: No adverse reaction; Nausea is decreased me1 23:35 Drug: morphine IM 4 mg IM once Route: IM; Site: right deltoid; me1 23:42 Follow up: Response: No adverse reaction; Pain is decreased me1 Medication: 21:26 VIS not applicable for this client. me1 Outcome: 23:28 Discharge ordered by . sb4 23:56 Discharged to home via wheelchair, with family, me1 23:56 Condition: stable 23:56 Discharge instructions given to patient, Instructed on discharge instructions, follow up and referral plans. medication usage, Demonstrated understanding of instructions, follow-up care, medications, Prescriptions given X 02 00:38 Patient left the ED. lg3 Signatures: Dispatcher [employer] Angelique Downing RN RN lg3 Vivian Love jj6 Carina Ivey PA-C PA-C sb4 Cray Aparicio RN RN me1
[2023-11-02 02:43] VITALS: BP 164/72; O2SAT 99
--- NOTE | 2023-11-02 14:07 | RAD REPORT ---
EXAM DESCRIPTION: Thorax Wo Con CLINICAL HISTORY: 82 years Female BLUNT CHEST TRAUMA COMPARISON: None TECHNIQUE: Images were obtained in axial, sagittal, and coronal planes. No intravenous contrast was administered. This exam was performed according to our departmental dose-optimization program which includes use of Automated Exposure Control, adjustment of the mA and/or kV according to patient size and/or use of iterative reconstruction technique. FINDINGS: Aortic root is dilated measuring 4.4 cm in anteroposterior dimension and 4.0 cm in transve rse dimension. Coronary artery calcification. No pericardial or pleural effusions bilaterally. No laura nopathy. No lung parenchymal infiltrates or nodules. No pneumothorax. Comminuted fractures posterior right 10th rib. Additional nondisplaced fracture posterior right ninth rib. No additional fractures seen. Height of the thoracic vertebral bodies is intact. Posterior [place] ents intact on the level. No sternal fracture. Thoracoabdominal aorta measures 2.9 cm in greatest transverse dimension. IMPRESSION: Comminuted fractures posterior right 10th rib. Additional nondisplaced fracture posterio r right ninth rib. No pneumothorax. No infiltrates seen. Dilated aortic root. Electronically signed by: Roxie Aquino MD 11/01/2023 11:16 PM [employer] Due to temporary technical issues with the PACS/Fluency reporting system, reports are being signed by the in house radiologists without review as a courtesy to insure prompt reporting. The interpreting radiologist is fully responsible for the content of the report.
== END ==
LOC: ER 21:14
DX: S22.41XA Multiple fractures of ribs, right side, initial encounter for closed fracture (principal); I10 Essential (primary) hypertension; Z88.6 Allergy status to analgesic agent; Z91.048 Other nonmedicinal substance allergy status
CPT/HCPCS: 71250; Q0162

== ENCOUNTER → 2023-12-13 | Emergency (ER) | payer MEDICAID ==
[~2023-12-13] MED LIST changes: +CYCLOBENZAPRINE 10 MG TAB ONE; +HYDROCODONE/APAP 5/325 MG TAB ONE; -MORPHINE 4 MG/ML SYR ONE; -ONDANSETRON 4 MG (ODT) TAB ONE
[2023-12-13 10:48] LABS: Absolute Basophils 0.1 K/uL (0-0.5); Absolute Eosinophils 0.3 K/uL (0-0.5); Absolute Lymphocytes (CBC) 1.7 K/uL (0.7-4.9); Absolute Monocytes 0.8 K/uL (0.1-1.3); Absolute Neutrophil 5.3 K/uL (1.8-8.0); Basophils % 1.3 % (0-1.3); Eosinophils % 3.8 % (0-4.4); Hematocrit 28.9 % (36.0-45.0); Hemoglobin 9.2 g/dL (12.0-15.0); Lymphocytes % 20.5 % (15.3-44.8); MCHC 31.8 g/dL (32.0-36.0); MCV 81.8 fL (80-100); Monocytes % 9.9 % (3.3-12.3); Neutrophils % 64.5 % (41.7-73.7); Platelets 265 thou/uL (152-406); RBC Red Blood Cell Count 3.53 M/uL (3.86-4.86)
--- NOTE | 2023-12-13 11:07 | RAD REPORT ---
EXAM DESCRIPTION: RAD - Hip Right 2 View - 12/13/2023 10:47 am CLINICAL HISTORY: PAIN COMPARISON: Hip Right 1 View dated 06/27/2023; Hip Right 2 View dated 08/18/2018 TECHNIQUE: Right hip, AP and frog-leg views. FINDINGS: There is no fracture or dislocation. No acute or destructive bony process seen. IMPRESSION: No acute findings of the right hip.
[2023-12-13 11:08] LABS: ALT/SGPT 15 U/L (13-56); AST/SGOT 12 U/L (15-37); Albumin/Globulin Ratio 0.7 (1.1-1.8); Alkaline Phosphatase 126 U/L (45-117); BUN Blood Urea Nitrogen 28 mg/dL (7-18); Bicarbonate 31 mEq/L (21-32); Bilirubin Total 0.3 mg/dL (0.2-1.0); Globulin 4.2 g/dL (2.3-3.5); Glomerular Filtration Rate 24 ml/min (=/>90); Glucose Level 89 mg/dL (74-106); Magnesium 2.7 mg/dL (1.6-2.4); Protein, Total 7.2 g/dL (6.4-8.2); Sodium Level 141 mEq/L (136-145); Troponin High Sensitivity 32.6 pg/mL (<58.9)
--- NOTE | 2023-12-13 11:08 | RAD REPORT ---
[facility] CLINICAL HISTORY: weakness COMPARISON: Chest Single View dated 08/23/2023; Chest Single View dated 08/02/2023; Chest Single View dated 07/26/2023; Chest Single View dated 06/24/2023 TECHNIQUE: Portable AP view of the chest. FINDINGS: The lungs are clear. Elevation of the right hemidiaphragm again noted. No pneumothorax or effusion. The cardiomediastinal contours are unremarkable. IMPRESSION: No acute cardiopulmonary process.
--- NOTE | 2023-12-13 11:12 | RAD REPORT ---
EXAM DESCRIPTION: RAD - Knee Right 3 View - 12/13/2023 10:47 am CLINICAL HISTORY: PAIN COMPARISON: Knee Right 3 View dated 07/27/2022; Knee Right 3 View dated 12/01/2017 TECHNIQUE: Right knee, 3 views. FINDINGS: No fracture, dislocation or periosteal reaction.No joint effusion seen. Right total knee a rthroplasty hardware and unchanged alignment. No soft tissue abnormality. IMPRESSION: No acute findings. Stable appearance of right total knee arthroplasty hardware.
[2023-12-13 11:16] LABS: Bilirubin Direct < 0.1 mg/dL (0-0.2); Bilirubin Indirect, Calculated ND mg/dL (0.2-0.8)
[2023-12-13 11:41] LABS: Specific Gravity 1.008 (1.005-1.030); Sqamous Epithelial None Seen /HPF (None Seen); Urine Bacteria None Seen /HPF (<20); Urine Bilirubin NEGATIVE (Negative); Urine Blood Negative (Negative); Urine Clarity Clear (Clear); Urine Color Colorless (Yellow); Urine Culture Reflex Order NOT NEEDED; Urine Glucose NEGATIVE (Negative); Urine Ketones NEGATIVE (Negative); Urine Micro Reflex YN NO BILL MICROSCOPIC; Urine Nitrite NEGATIVE (Negative); Urine Protein TRACE (Negative); Urine RBC <5 /HPF (None Seen); Urine Urobilinogen Normal (Normal); Urine WBC None Seen /HPF (<5)
--- NOTE | 2023-12-13 11:45 | RAD REPORT ---
EXAM DESCRIPTION: US - Extremity Venous Uni Ltd - 12/13/2023 11:11 am CLINICAL HISTORY: Pain COMPARISON: None. TECHNIQUE: Real-time sonographic evaluation of the right lower extremity deep venous system was perf ormed. FINDINGS: Normal compressibility, flow augmentation, phasic flow and spontaneous flow is identified in the right lower extremity deep venous system. No intraluminal filling defects seen. IMPRESSION: No DVT in the right lower extremity.
--- NOTE | 2023-12-13 13:02 | RAD REPORT ---
EXAM DESCRIPTION: CT - Head Brain Wo Cont - 12/13/2023 12:56 pm CLINICAL HISTORY: SLURRED SPEECH Headache, drowsiness, CVA symptomology COMPARISON: 10/09/2023, 07/26/2023 TECHNIQUE: All CT scans are performed using dose optimization technique as appropriate and may inclu de automated exposure control or mA/KV adjustment according to patient size. FINDINGS: No intracranial hemorrhage, hydrocephalus or extra-axial fluid collection.Mild generalized brain atrophy is present with moderate periventricular and deep white matter chronic microvascular i schemic changes.No areas of brain edema or evidence of midline shift. Vertebral atherosclerosis. The paranasal sinuses and mastoids are clear. The calvarium is intact. IMPRESSION: No acute intracranial abnormality.
--- NOTE | 2023-12-13 13:28 | ER ---
Nurse's Notes [facility] Name: Radha Bentley Age: 83 yrs Sex: Female : 1940 Arrival Date: 12/13/2023 Time: 10:05 Bed 13 Private MD: Diagnosis: Right leg pain;Dysarthria Presentation: 12/12 10:10 Chief complaint: Patient states: Generalized weakness along with right leg pain for nj1 about 2 weeks. 10:10 Coronavirus screen: Vaccine status: Patient reports receiving the 2nd dose of the covid nj1 vaccine. Ebola Screen: Patient denies travel to an Ebola-affected area in the 21 days before illness onset. Initial Sepsis Screen: Does the patient meet any 2 criteria? No. Patient's initial sepsis screen is negative. Does the patient have a suspected source of infection? No. Patient's initial sepsis screen is negative. Risk Assessment: Do you want to hurt yourself or someone else? Patient reports no desire to harm self or others. Onset of symptoms was 2023. 10:10 Method Of Arrival: EMS: [facility] 10:10 Acuity: VAIBHAV 3 nj1 Triage Assessment: 10:06 General: Appears in no apparent distress. uncomfortable, Behavior is calm, cooperative, nj1 appropriate for age. Historical: - Allergies: 10:16 Avelox; nj1 10:16 Band-aid adhesive; nj1 - PMHx: 10:16 ADD/ADHD; COPD; Heart Murmur; Hyperlipidemia; Hypertension; Hypothyroidism; kidney nj1 disease; - PSHx: 10:16 bilateral knee replacement; breast reduction; Cholecystectomy; Shoulder replacment; nj1 - Immunization history:: Client reports receiving the 2nd dose of the Covid vaccine. - Social history:: Smoking status: Patient denies any tobacco usage or history of. Screenin:17 [facility] ED Fall Risk Assessment (Adult). Abuse screen: Denies threats or abuse. Denies nj1 injuries from another. Nutritional screening: No deficits noted. Tuberculosis screening: No symptoms or risk factors identified. Assessment: 10:16 General: Appears in no apparent distress. uncomfortable, Behavior is calm, cooperative, nj1 appropriate for age. Pain: Complains of pain in right leg Pain currently is 9 out of 10 on a pain scale. Neuro: Level of Consciousness is awake, alert, obeys commands, Oriented to person, place, situation, Speech is normal, Facial symmetry appears normal, Reports weakness since 2 weeks. Cardiovascular: Patient's skin is warm and dry. Respiratory: Airway is patent Respiratory effort is even, unlabored. Musculoskeletal: Reports pain in right leg since 2 weeks. 11:22 Reassessment: Patient appears in no apparent distress at this time. Patient and/or nj1 family updated on plan of care and expected duration. Pain level reassessed. Patient is alert, oriented x 3, equal unlabored respirations, skin warm/dry/pink. 12:49 Reassessment: Patient appears in no apparent distress at this time. Patient and/or nj1 family updated on plan of care and expected duration. Pain level reassessed. Patient is alert, oriented x 3, equal unlabored respirations, skin warm/dry/pink. Patient states feeling better. Patient states symptoms have improved. Vital Signs: 10:10 BP 148 / 100; Pulse 69; Resp 17; Temp 97.9(O); Pulse Ox 100% on R/A; Weight 65.32 kg; nj1 Height 4 ft. 11 in. ; Pain 9/10; 11:22 BP 165 / 73; Pulse 77; Resp 22; Pulse Ox 93% on R/A; Pain 9/10; nj1 12:48 BP 152 / 58; Pulse 75; Resp 20; Pulse Ox 94% on R/A; nj1 13:50 BP 161 / 73; Pulse 74; Resp 22; Pulse Ox 94% on R/A; nj1 10:10 Body Mass Index 29.08 (65.32 kg, 149.86 cm) nj1 10:10 Pain Scale: Adult nj1 11:22 Pain Scale: Adult [facility] ED Course: 10:08 Patient arrived in ED. nj1 10:10 Ashish Morales MD is Attending Physician. rt 10:12 Tessa Ewing, ALAN is Primary Nurse. nj1 10:16 Triage completed. nj1 10:16 Arm band placed on. nj1 10:18 Patient has correct armband on for positive identification. Bed in low position. Call [facility] light in reach. Side rails up X 1. Provided Education on: call light, fall precautions. 10:18 Client placed on continuous cardiac and pulse oximetry monitoring. NIBP monitoring nj1 applied. 10:40 shipping clerk/admin on. nj1 10:40 EKG done, by dictaphone technician. nj1 10:41 Initial lab(s) drawn, by me, sent to lab. EKG done, by ED staff. Maintain EMS IV. aw1 Dressing intact. Good blood return noted. Site clean \T\ dry. Gauge \T\ site: 20G L AC SL. 10:49 XRAY Chest (1 view) In Process Unspecified. EDMS 10:49 Knee Right 3 View XRAY In Process Unspecified. EDMS 10:49 Hip Right 2 View XRAY In Process Unspecified. EDMS 10:50 Straight cath inserted, using sterile technique, 14 Fr. Specimen obtained. Returned nj1 clear yellow urine. Patient tolerated well. 11:13 Extremity Venous Uni Ltd US In Process Unspecified. EDMS 12:58 CT Head Brain wo Cont In Process Unspecified. EDMS 14:16 No provider procedures requiring assistance completed. IV discontinued, intact, iw bleeding controlled, No redness/swelling at site. Pressure dressing applied. Administered Medications: 10:40 Drug: HYDROcodone-acetaminophen PO 5 mg-325 mg 1 tabs PO once Route: PO; nj1 11:20 Follow up: Response: No adverse reaction; Pain is unchanged, physician notified nj1 11:30 Drug: Cyclobenzaprine PO 10 mg PO once Route: PO; nj1 12:30 Follow up: Response: No adverse reaction; Pain is decreased nj1 Medication: 14:15 VIS not applicable for this client. iw Outcome: 13:28 Discharge ordered by MD. rt 14:17 Discharged to home via wheelchair, with family, iw 14:17 Condition: good 14:17 Discharge instructions given to patient, Instructed on discharge instructions, follow up and referral plans. medication usage, Demonstrated understanding of instructions, follow-up care, medications, Prescriptions given X 1, 14:18 Patient left the ED. iw Signatures: Dispatcher [employer] EDMS Lula Thakur, ALAN RN iw Ashish Morales MD MD rt Tessa Ewing RN RN nj1 Ting Abernathy aw1
--- NOTE | 2023-12-13 13:28 | EDPHYS ---
Physician Documentation [facility] Name: Radha Bentley Age: 83 yrs Sex: Female : 1940 Arrival Date: 12/13/2023 Time: 10:05 Bed 13 Private MD: ED Physician Ashish Morales HPI: 12/12 11:19 This 83 yrs old Female presents to ER via EMS with complaints of Leg Pain. rt 11:19 Patient presents to the ED with right leg pain, states has been present for many rt months, worse over the past few days. Ports spasm to the thigh as well as pain to the right knee. She reports feeling generally weak today and was having difficulty walking due to that. Denies chest pain, acute complaints, symptoms are moderate in severity, no other aggravating or elevating factors.. Historical: - Allergies: 10:16 Avelox; nj1 10:16 Band-aid adhesive; nj1 - PMHx: 10:16 ADD/ADHD; COPD; Heart Murmur; Hyperlipidemia; Hypertension; Hypothyroidism; kidney nj1 disease; - PSHx: 10:16 bilateral knee replacement; breast reduction; Cholecystectomy; Shoulder replacment; nj1 - Immunization history:: Client reports receiving the 2nd dose of the Covid vaccine. - Social history:: Smoking status: Patient denies any tobacco usage or history of. ROS: 11:19 MS/extremity: Positive for pain, rt 16:32 Constitutional: Negative for fever, chills, and weight loss, Cardiovascular: Negative rt for chest pain, palpitations, and edema, Respiratory: Negative for shortness of breath, cough, wheezing, and pleuritic chest pain, Abdomen/GI: Negative for abdominal pain, nausea, vomiting, diarrhea, and constipation, Skin: Negative for injury, rash, and discoloration, Neuro: Negative for headache, weakness, numbness, tingling, and seizure, 16:32 MS/extremity: Negative for injury or acute deformity, Exam: 16:32 Constitutional: This is a well developed, well nourished patient who is awake, alert, rt and in no acute distress. Head/Face: Normocephalic, atraumatic. Chest/axilla: Normal chest wall appearance and motion. Nontender with no deformity. No lesions are appreciated. Cardiovascular: Regular rate and rhythm with a normal S1 and S2. No gallops, murmurs, or rubs. Normal PMI, no JVD. No pulse deficits. Respiratory: Lungs have equal breath sounds bilaterally, clear to auscultation and percussion. No rales, rhonchi or wheezes noted. No increased work of breathing, no retractions or nasal flaring. Abdomen/GI: Soft, non-tender, with normal bowel sounds. No distension or tympany. No guarding or rebound. No evidence of tenderness throughout. Skin: Warm, dry with normal turgor. Normal color with no rashes, no lesions, and no evidence of cellulitis. 16:32 Musculoskeletal/extremity: Mild tenderness on right lateral thigh, no deformity, cellulitic changes, bruising noted pulses, motor, sensation to. 16:32 ECG was reviewed by the Attending Physician. rt Vital Signs: 10:10 BP 148 / 100; Pulse 69; Resp 17; Temp 97.9(O); Pulse Ox 100% on R/A; Weight 65.32 kg; nj1 Height 4 ft. 11 in. ; Pain 9/10; 11:22 BP 165 / 73; Pulse 77; Resp 22; Pulse Ox 93% on R/A; Pain 9/10; nj1 12:48 BP 152 / 58; Pulse 75; Resp 20; Pulse Ox 94% on R/A; nj1 13:50 BP 161 / 73; Pulse 74; Resp 22; Pulse Ox 94% on R/A; nj1 10:10 Body Mass Index 29.08 (65.32 kg, 149.86 cm) nj1 10:10 Pain Scale: Adult nj1 11:22 Pain Scale: Adult nj1 MDM: 10:10 Patient medically screened. rt 16:32 Differential diagnosis: DVT, fracture, electrolyte disturbance. Data reviewed: vital rt signs, nurses notes. Consideration of Admission/Observation Escalation of care including admission/observation considered. Patient subsequently reported having slurred speech, some facial droop. CT scan was negative. I did offer the patient admission for CVA, TIA workup, patient strongly declines this. Patient was important follow-up with primary care, return if she changes her mind or has worsening symptoms.. I considered the following discharge prescriptions or medication management in the emergency department Medications were administered in the Emergency Department. See MAR. Independent interpretation of the following test(s) in the Emergency Department CT Scan: My interpretation is No intracranial hemorrhage seen on interpretation of CT scan images. Care significantly affected by the following chronic conditions: Chronic Obstructive Pulmonary Disease. Counseling: I had a detailed discussion with the patient and/or guardian regarding the historical points, exam findings, and any diagnostic results supporting the discharge/admit diagnosis, lab results, radiology results, the need for outpatient follow up, to return to the emergency department if symptoms worsen or persist or if there are any questions or concerns that arise at home. Response to treatment: the patient's symptoms have mildly improved after treatment. 12/12 10:13 Order name: Basic Metabolic Panel; Complete Time: 11:18 rt 12/12 10:13 Order name: CBC with Diff; Complete Time: :18 rt 12/12 10:13 Order name: LFT's; Complete Time: :18 rt 12/12 10:13 Order name: Magnesium; Complete Time: :18 rt 12/12 10:13 Order name: Troponin HS; Complete Time: :18 rt 12/12 11:27 Order name: UAM; Complete Time: 11:47 rt 12/12 10:13 Order name: XRAY Chest (1 view); Complete Time: :18 rt 12/12 10:13 Order name: Knee Right 3 View XRAY; Complete Time: 11:18 rt 12/12 10:13 Order name: Hip Right 2 View XRAY; Complete Time: 11:18 rt 12/12 10:13 Order name: Extremity Venous Uni Ltd US; Complete Time: 11:47 rt 12/12 12:44 Order name: CT Head Brain wo Cont; Complete Time: 13:11 rt 12/12 10:13 Order name: EKG; Complete Time: : rt 12/12 10:13 Order name: Cardiac monitoring; Complete Time: 10:40 rt 12/12 10:13 Order name: EKG - Nurse/Tech; Complete Time: 10:40 rt 12/12 10:13 Order name: IV Saline Lock; Complete Time: : rt 12/12 10:13 Order name: Labs collected and sent; Complete Time: 10:40 rt 12/12 10:13 Order name: O2 Per Protocol; Complete Time: : rt 12/12 10:13 Order name: O2 Sat Monitoring; Complete Time: 10: rt EC:32 Rate is 80 beats/min. Rhythm is regular, 1st Degree Block with No ectopy, LVH present. rt Left axis deviation noted. QT interval is normal. No Q waves. Administered Medications: 10:40 Drug: HYDROcodone-acetaminophen PO 5 mg-325 mg 1 tabs PO once Route: PO; nj1 11:20 Follow up: Response: No adverse reaction; Pain is unchanged, physician notified nj1 11:30 Drug: Cyclobenzaprine PO 10 mg PO once Route: PO; nj1 12:30 Follow up: Response: No adverse reaction; Pain is decreased nj1 Disposition Summary: 12/13/23 13:28 Discharge Ordered Notes: Location: Home rt Problem: new rt Symptoms: are unchanged rt Condition: Stable rt Diagnosis - Right leg pain rt - Dysarthria rt Followup: rt - With: Private Physician - When: 2 - 3 days - Reason: Discharge Instructions: - Discharge Summary Sheet rt - Musculoskeletal Pain rt Forms: - Medication Reconciliation Form rt - Thank You Letter rt - Antibiotic Education rt - Prescription Opioid Use rt - Patient Portal Instructions rt - Leadership Thank You Letter rt Prescriptions: - gabapentin 100 mg Oral capsule - take 1 capsule ORAL route 3 times per day; 21 capsule; Refills: 0, Product rt Selection Permitted Signatures: Dispatcher [employer] Ashish Mcmahon MD MD rt Tessa Ewing RN RN nj1
[2023-12-13 14:32] VITALS: BP 161/73; TEMP 97.9; O2SAT 94
--- NOTE | 2023-12-14 17:26 | EKG ---
Test Date: 2023-12-13 Test Time: 09:33:58 Explosives Engineer: AMANDA MEASUREMENT RESULTS: Intervals: Rate: 80 IN: 250 QRSD: 120 QT: 456 QTc: 525 [place]: P: 62 IN: 250 QRS: -41 T: 54 INTERPRETIVE STATEMENTS: Sinus rhythm with 1st degree AV block Left axis deviation Left ventricular hypertrophy with QRS widening Abnormal ECG Compared to ECG 08/23/2023 20:35:51 Sinus bradycardia no longer present T-wave abnormality no longer present Possible ischemia no longer present Electronically Signed On 12-14-23 17:21:11 CDT by Andre Arriaga
== END ==
LOC: ER 10:05
DX: M79.651 Pain in right thigh (principal); R47.1 Dysarthria and anarthria; Z96.653 Presence of artificial knee joint, bilateral; Z88.6 Allergy status to analgesic agent; Z91.048 Other nonmedicinal substance allergy status
CPT/HCPCS: 36415; 51702; 70450; 71045; 80048; 80076; 81001; 83735; 84484; 85025; 93005; 93971; 99285

== ENCOUNTER 2023-12-14 11:33 | Inpatient (IN) | payer MEDICAID ==
--- NOTE | 2023-12-14 12:10 | RAD REPORT ---
EXAM DESCRIPTION: CT - Head Brain Wo Cont - 12/14/2023 11:56 am CLINICAL HISTORY: Head injury status post fall COMPARISON: December 13, 2023 TECHNIQUE: Computed axial tomography of the head was obtained. IV contrast was not requested. All CT scans are performed using dose optimization technique as appropriate and may include automated exposure control or mA/KV adjustment according to patient size. FINDINGS: An intracranial bleed is not seen The ventricles are normal in caliber No extra-axial fluid collection is noted. Mild to moderate low-density areas within periventricular, deep and subcortical white matter likely r epresent ischemic changes secondary to small vessel disease. Fluid within the sinuses/ mastoids is not seen. IMPRESSION: No acute intracranial abnormality is seen If patient's symptoms persist MRI of the brain would be recommended
--- NOTE | 2023-12-14 12:12 | RAD REPORT ---
EXAM DESCRIPTION: Vishnu Single View12/14/2023 12:05 pm CLINICAL HISTORY: Cough COMPARISON: December 13 1023 FINDINGS: A few areas of scarring within the lungs Chronic elevation right hemidiaphragm. Chronic deformity right clavicle The lungs appear clear of acute infiltrate. The heart is mildly enlarged IMPRESSION: No acute abnormalities displayed
[2023-12-14 12:43] LABS: Absolute Basophils 0.1 K/uL (0-0.5); Absolute Eosinophils 0.1 K/uL (0-0.5); Absolute Lymphocytes (CBC) 1.1 K/uL (0.7-4.9); Absolute Monocytes 0.7 K/uL (0.1-1.3); Absolute Neutrophil 6.6 K/uL (1.8-8.0); Hematocrit 30.5 % (36.0-45.0); Hemoglobin 9.8 g/dL (12.0-15.0); Lymphocytes % 12.4 % (15.3-44.8); MCH 25.9 pg (27.0-35.0); MCHC 32.1 g/dL (32.0-36.0); MCV 80.9 fL (80-100); MPV 7.5 fL (7.6-11.3); Monocytes % 8.7 % (3.3-12.3); Neutrophils % 76.9 % (41.7-73.7); Platelets 262 thou/uL (152-406); RBC Red Blood Cell Count 3.77 M/uL (3.86-4.86); Red Cell Distribution Width 16.7 % (12.1-15.2)
[2023-12-14 13:03] LABS: Albumin 3.4 g/dL (3.4-5.0); Albumin/Globulin Ratio 0.8 (1.1-1.8); Anion Gap 8.3 mEq/L (5.0-15.0); Bilirubin Direct 0.2 mg/dL (0-0.2); Bilirubin Indirect, Calculated 0.5 mg/dL (0.2-0.8); Bilirubin Total 0.7 mg/dL (0.2-1.0); Globulin 4.3 g/dL (2.3-3.5); Potassium 3.3 mEq/L (3.5-5.1); Protein, Total 7.7 g/dL (6.4-8.2); Troponin High Sensitivity 42.2 pg/mL (<58.9)
[2023-12-14 13:13] LABS: Specific Gravity 1.013 (1.005-1.030); Sqamous Epithelial None Seen /HPF (None Seen); Urine Bacteria None Seen /HPF (<20); Urine Bilirubin NEGATIVE (Negative); Urine Blood Trace (Negative); Urine Clarity Clear (Clear); Urine Color Light-Yellow (Yellow); Urine Culture Reflex Order NOT NEEDED; Urine Glucose NEGATIVE (Negative); Urine Ketones NEGATIVE (Negative); Urine Micro Reflex YN NO BILL MICROSCOPIC; Urine Nitrite NEGATIVE (Negative); Urine Protein 1+ (Negative); Urine RBC <5 /HPF (None Seen); Urine Urobilinogen Normal (Normal); Urine WBC <5 /HPF (<5)
--- NOTE | 2023-12-14 13:25 | ER ---
Nurse's Notes [facility] Name: Radha Bentley Age: 83 yrs Sex: Female : 1940 Arrival Date: 12/14/2023 Time: 11:33 Bed 13 Private MD: Diagnosis: Weakness Presentation: 12/13 11:39 Chief complaint: EMS states: they have been toned out for 3 separate falls this AM. pt kc6 denies LOC, no blood thinners. Coronavirus screen: At this time, the client does not indicate any symptoms associated with coronavirus-19. Ebola Screen: No symptoms or risks identified at this time. Initial Sepsis Screen: Does the patient meet any 2 criteria? No. Patient's initial sepsis screen is negative. Does the patient have a suspected source of infection? No. Patient's initial sepsis screen is negative. Risk Assessment: Do you want to hurt yourself or someone else? Patient reports no desire to harm self or others. Onset of symptoms was December 14, 2023. 11:39 Method Of Arrival: EMS: [facility] 11:39 Acuity: VAIBHAV 3 kc6 Triage Assessment: 11:40 General: Appears in no apparent distress. comfortable, unkempt, well developed, kc6 Behavior is calm, cooperative, appropriate for age. EENT: No signs and/or symptoms were reported regarding the EENT system. Neuro: Level of Consciousness is awake, alert, obeys commands, Oriented to person, place, time, situation, Appropriate for age Reports weakness in right leg and left leg. Cardiovascular: Capillary refill < 3 seconds. Respiratory: Airway is patent Trachea midline Respiratory effort is even, unlabored, Respiratory pattern is regular, symmetrical. GI: No signs and/or symptoms were reported involving the gastrointestinal system. : No signs and/or symptoms were reported regarding the genitourinary system. Derm: No signs and/or symptoms reported regarding the dermatologic system. Skin is intact, is healthy with good turgor, Skin is pink, warm \T\ dry. Musculoskeletal: No signs and/or symptoms reported regarding the musculoskeletal system. Circulation, motion, and sensation intact. Capillary refill < 3 seconds, Range of motion: intact in all extremities. Historical: - Allergies: 11:40 Avelox; kc6 11:40 Band-aid adhesive; kc6 - PMHx: 11:40 ADD/ADHD; COPD; Heart Murmur; Hyperlipidemia; Hypertension; Hypothyroidism; kidney kc6 disease; Transient cerebral ischemia; - PSHx: 11:40 bilateral knee replacement; breast reduction; Cholecystectomy; Shoulder replacment; kc6 - Immunization history:: Adult Immunizations not up to date. - Social history:: Smoking status: Patient denies any tobacco usage or history of. Screenin:42 [facility] ED Fall Risk Assessment (Adult) History of falling in the last 3 months, kc including since admission Yes- fall prone (multiple falls) (3 pts) Confusion or Disorientation No (0 pts) Intoxicated or Sedated No (0 pts) Impaired Gait Yes (1 pt) Mobility Assist Device Used Yes (1 pt) Altered Elimination No (0 pt) Score/Fall Risk Level 3 or more points = High Risk. Abuse screen: Denies threats or abuse. Denies injuries from another. Nutritional screening: No deficits noted. Tuberculosis screening: No symptoms or risk factors identified. Assessment: 11:41 Reassessment: please see triage. [facility] 12:41 Reassessment: Patient appears in no apparent distress at this time. No changes from [facility] previously documented assessment. Patient and/or family updated on plan of care and expected duration. Pain level reassessed. Patient is alert, oriented x 3, equal unlabored respirations, skin warm/dry/pink. 13:41 Reassessment: Patient appears in no apparent distress at this time. No changes from [facility] previously documented assessment. Patient and/or family updated on plan of care and expected duration. Pain level reassessed. Patient is alert, oriented x 3, equal unlabored respirations, skin warm/dry/pink. Vital Signs: 11:39 BP 177 / 61; Pulse 73; Resp 16; Temp 98.7(O); Pulse Ox 100% on R/A; Weight 66.68 kg kc6 (R); Height 4 ft. 11 in. (R); 14:06 BP 176 / 76; Pulse 79; Resp 18 S; Pulse Ox 94% on R/A; kc6 11:39 Body Mass Index 29.69 (66.68 kg, 149.86 cm) [facility] ED Course: 11:38 Patient arrived in ED. ec2 11:38 True Hobbs MD is Attending Physician. ec2 11:39 Gibbons, Aurelia, RN is Primary Nurse. kc6 11:40 Triage completed. kc6 11:40 Arm band placed on. kc6 11:41 Patient maintains SpO2 saturation greater than 95% on room air. kc6 11:42 Patient has correct armband on for positive identification. Placed in gown. Bed in low kc6 position. Call light in reach. Side rails up X2. Client placed on continuous cardiac and pulse oximetry monitoring. NIBP monitoring applied. 11:57 CT Head Brain wo Cont In Process Unspecified. EDMS 12:06 XRAY Chest (1 view) In Process Unspecified. EDMS 12:34 Inserted saline lock: 22 gauge in right antecubital area, using aseptic technique. kc6 Blood collected. 12:35 Straight cath inserted, using sterile technique, 16 Fr. Specimen obtained. Returned kc6 clear yellow urine. Patient tolerated well. 13:23 Willem Shah MD is Hospitalizing Provider. ec2 13:24 Jin Cortez MD is Hospitalizing Provider. ec2 Administered Medications: No medications were administered Outcome: 13:24 Decision to Hospitalize by Provider. ec2 16:01 Patient left the ED. kd3 Signatures: Dispatcher [employer] Delmi Fagan RN RN kd3 Aurelia Gibbons RN RN kc6 True Hobbs MD MD ec2
--- NOTE | 2023-12-14 13:25 | EDPHYS ---
Physician Documentation [facility] Name: Radha Bentley Age: 83 yrs Sex: Female : 1940 Arrival Date: 12/14/2023 Time: 11:33 Bed 13 Private MD: ED Physician True Hobbs HPI: 12/13 11:40 This 83 yrs old Female presents to ER via EMS with complaints of General ec2 Weakness. 11:40 Patient arrives today for evaluation of generalized weakness. Patient reports that that ec2 she has had 3 falls today. Patient with no LOC, no blood thinner use. Patient with generalized weakness for the past several days. Patient was seen here yesterday for cramping as well.. Historical: - Allergies: 11:40 Avelox; kc6 11:40 Band-aid adhesive; kc6 - PMHx: 11:40 ADD/ADHD; COPD; Heart Murmur; Hyperlipidemia; Hypertension; Hypothyroidism; kidney kc6 disease; Transient cerebral ischemia; - PSHx: 11:40 bilateral knee replacement; breast reduction; Cholecystectomy; Shoulder replacment; kc6 - Immunization history:: Adult Immunizations not up to date. - Social history:: Smoking status: Patient denies any tobacco usage or history of. ROS: 11:40 Constitutional: as per hpi ec2 Exam: 11:40 Constitutional: GEN: NAD Head: atraumatic Eyes: EOMI Ears: External ears are ec2 normal. CV: regular rate LUNGS: no respiratory distress ABD: non-distended SKIN: no evidence of rashes MSK: no evidence of trauma NEURO: moves all extremities equally Vital Signs: 11:39 BP 177 / 61; Pulse 73; Resp 16; Temp 98.7(O); Pulse Ox 100% on R/A; Weight 66.68 kg kc6 (R); Height 4 ft. 11 in. (R); 14:06 BP 176 / 76; Pulse 79; Resp 18 S; Pulse Ox 94% on R/A; kc6 11:39 Body Mass Index 29.69 (66.68 kg, 149.86 cm) kc6 MDM: 11:38 Patient medically screened. ec2 11:40 Data reviewed: vital signs. ED course: Patient arrives today for evaluation of ec2 generalized weakness as well as recurrent falls. Examination remarkable for well-appearing nontoxic dividual is otherwise in no acute distress. Will obtain lab work, urinary studies, EKG, CT imaging. Evaluate for brain bleed, C-spine fracture, electrolyte disturbance, anemia and arrhythmia. Patient will require admission to hospital given the patient's generalized weakness.. 12:28 ED course: CT head and C-spine as well as chest x-ray showed no acute traumatic ec2 process. . 13:23 ED course: Metabolic profile shows slight hypokalemia, renal dysfunction with ec2 creatinine of 2.12 and a GFR of 23. CBC shows slight anemia with a hemoglobin of 9.8. Does have BNP elevation at 9000. Urine is noninfectious appearing. Troponin within normal ranges. Chest x-ray shows no acute intrathoracic process. Will admit for generalized weakness. . 12/13 11:40 Order name: Basic Metabolic Panel; Complete Time: 13:22 ec2 12/13 11:40 Order name: CBC with Diff; Complete Time: 13:22 ec2 12/13 11:40 Order name: NT PRO-BNP; Complete Time: 13: ec2 12/13 11:40 Order name: Troponin HS; Complete Time: 13:22 ec2 12/13 11:40 Order name: UAM; Complete Time: 13:22 ec2 12/13 11:40 Order name: LFT's; Complete Time: 13:22 ec2 12/13 14:12 Order name: CBC with Automated Diff EDMS 12/13 14:12 Order name: CBC with Automated Diff EDMS 12/13 14:12 Order name: Comprehensive Metabolic Panel EDMS 12/13 14:12 Order name: Comprehensive Metabolic Panel EDMS 12/13 14:12 Order name: Cortisol EDMS 12/13 14:12 Order name: Cortisol EDMS 12/13 14:12 Order name: Lipid Profile EDMS 12/13 14:12 Order name: Lipid Profile EDMS 12/13 14:12 Order name: T4 Free EDMS 12/13 14:12 Order name: T4 Free EDMS 12/13 14:12 Order name: Thyroid Stimulating Hormone EDMS 12/13 14:12 Order name: Thyroid Stimulating Hormone EDMS 12/13 14:12 Order name: Troponin High Sensitivity EDMS 12/13 14:12 Order name: Troponin High Sensitivity EDMS 12/13 14:12 Order name: Troponin High Sensitivity EDMS 12/13 11:40 Order name: XRAY Chest (1 view); Complete Time: 12:28 ec2 12/13 11:40 Order name: CT Head Brain wo Cont; Complete Time: 12:28 ec2 12/13 11:40 Order name: EKG; Complete Time: 11:41 ec2 12/13 14:12 Order name: Physical Therapy Consult EDWY 12/13 11:40 Order name: Cardiac monitoring; Complete Time: 12:34 ec2 12/13 11:40 Order name: EKG - Nurse/Tech; Complete Time: 12:34 ec2 12/13 11:40 Order name: IV Saline Lock; Complete Time: 12:34 ec2 12/13 11:40 Order name: Labs collected and sent; Complete Time: 12:34 ec2 12/13 11:40 Order name: O2 Per Protocol; Complete Time: 11:42 ec2 12/13 11:40 Order name: O2 Sat Monitoring; Complete Time: 11:42 ec2 Administered Medications: No medications were administered Disposition Summary: 12/14/23 13:24 Hospitalization Ordered Notes: Hospitalization Status: Inpatient Admission ec2 Provider: Jin Cortez ec2 Location: Telemetry/MedSurg (Inpatient) ec2 Condition: Stable ec2 Problem: an ongoing problem ec2 Symptoms: are unchanged ec2 Bed/Room Type: Standard ec2 Room Assignment: [facility](12/14/23 14:27) 5 Diagnosis - Weakness ec2 Forms: - Medication Reconciliation Form ec2 - SBAR form ec2 - Leadership Thank You Letter ec2 Signatures: Dispatcher [employer] Aurelia Foote RN RN 6 Roselyn Cordero 5 True Hobbs MD MD ec2 Corrections: (The following items were deleted from the chart) 14:27 13:24 ec2 mc5
--- NOTE | 2023-12-14 14:07 | P.HP ---
Certification for Inpatient Patient admitted to: Observation With expected LOS: <2 Midnights Patient will require the following post-hospital care: None Practitioner: I am a practitioner with admitting privileges, knowledge of patient current condition, hospital course, and medical plan of care. Services: Services provided to patient in accordance with Admission requirements found in Title 42 Section 412.3 of the Code of Federal Regulations Patient History Date of Service: 12/14/23 Reason for admission: Multiple falls History of Present Illness: Patient is an 83-year-old female who comes into the hospital with multiple falls. Patient has been falling quite a bit. Patient was recently in the emergency room for similar issues. Patient states she falls quite a bit. She broke her wrist last Thanksgi. She is suffered a fibular injury. She is also hurt her left shoulder. She has broken 2 ribs. Her son stays at home with her, but he is not always there with her. She also has a longstanding history of diverticulosis with secondary diarrhea. Since she had recurrent admission yesterday the plan is to admit her to the hospital for observation. Will start her on IV fluids and check a UA with microscopy. Will monitor her electrolytes. Will get physical therapy evaluation. If patient does well then anticipate discharge over the next 24 to 48 hours. Allergies moxifloxacin HCl [From Avelox] Allergy (Intermediate, Verified 09/20/22 19:25) Itching/Hives/Rash adhesive [Adhesive] Adverse Reaction (Intermediate, Verified 09/20/22 19:25) Rash band-aid adhesive Allergy (Uncoded 10/03/17 08:51) Unknown Home Medications: Escitalopram Oxalate [Lexapro] 20 mg PO BID 11/19/11 Levothyroxine [Synthroid*] 0.125 mg PO DAILY 11/19/11 Pantoprazole [Protonix Tab*] 1 tab PO BID 06/28/21 Famotidine 20 mg PO BEDTIME 09/21/22 Lovastatin 20 mg PO DAILY 04/13/23 Amlodipine [Norvasc*] 5 mg PO DAILY 06/21/23 Clonidine HCl [Catapres*] 0.2 mg PO BID 06/21/23 Donepezil [Aricept*] 10 mg PO BEDTIME 06/21/23 Febuxostat [Uloric] 40 mg PO DAILY 06/21/23 buPROPion HCL [Bupropion HCl Sr] 150 mg PO BID 06/21/23 carvediloL [Carvedilol] 6.25 mg PO BID 06/21/23 oxyBUTYnin chloride [Oxybutynin Chloride] 5 mg PO TID 06/21/23 Amiodarone HCl [Cordarone*] 200 mg PO BID tab 06/28/23 Furosemide [Lasix*] 40 mg PO BID 07/27/23 Hydrocodone 5/APAP 325 [[place] 5/325] 1 tab PO 07/31/23 Ropinirole HCl 07/31/23 - Past Medical/Surgical History Diabetic: No -: Hypertension -: Dyslipidemia -: Hypothyroidism -: Restless leg syndrome -: Gastroesophageal reflux disease -: depression -: Chronic diastolic congestive heart failure -: CKD 4 -: Arthritis -: Eczema -: Afib -: CVA -: Bilateral knee replacement -: left shoulder replacement 2011 -: breast reduction -: gastric banding -: removal of adhesions and scar tissue -: benein tumor removal -: Cholecystectomy -: Partial hysterectomy Psychosocial/ Personal History: Patient is retired, lives at home with her family - Family History MOM Medical History: Cancer Notes: BREAST FATH Medical History: Cancer Notes: [place] - Social History Smoking Status: Former smoker Alcohol use: No CD- Drugs: No Caffeine use: Yes Review of Systems 10-point ROS is otherwise unremarkable Physical Examination - Vital Signs Temperature: 98 F (reviewed) - Physical Exam General: Alert, In no apparent distress, Oriented x3 HEENT: Atraumatic, PERRLA, Mucous membr. moist/pink, EOMI, Sclerae nonicteric Neck: Supple, 2+ carotid pulse no bruit, No LAD, Without JVD or thyroid abnormality Respiratory: Clear to auscultation bilaterally, Normal air movement Cardiovascular: Regular rate/rhythm, Normal S1 S2 Gastrointestinal: Normal bowel sounds, Soft and benign, Non-distended, No tenderness Musculoskeletal: No clubbing, No swelling, No tenderness, Contractures (hands and lft arm) Integumentary: No rashes Neurological: Normal speech, Sensation intact, Cranial nerves 3-12 intact, Normal affect, Abnormal gait, Abnormal strength, Abnormal tone Lymphatics: No axilla or inguinal lymphadenopathy - Studies Laboratory Data (last 24 hrs) 12/14/23 12/14/23 12:31 12:31 WBC 8.60 Hgb 9.8 L Hct 30.5 L Plt Count 262 Sodium 136 D Potassium 3.3 L D BUN 26 H Creatinine 2.12 H Glucose 94 Total Bilirubin 0.7 AST 28 ALT 16 Alkaline Phosphatase 121 H Assessment & Plan - Problems (Diagnosis) (1) CKD (chronic kidney disease) Onset Date: 10/03/17 Current Visit: No Status: Acute (2) COPD (chronic obstructive pulmonary disease) with emphysema Current Visit: No Status: Acute (3) Depression Onset Date: 10/03/17 Current Visit: No Status: Acute (4) Hypertension Onset Date: 10/03/17 Current Visit: No Status: Acute (5) Hypothyroid Onset Date: 10/03/17 Current Visit: No Status: Acute (6) Vertigo Current Visit: No Status: Acute (7) Benign hypertension Current Visit: No Status: Chronic (8) Status post fall Current Visit: Yes Status: Acute - Plan 1. Gentle hydration 2. Panculture 3. IV antibiotic prophylactically 4. Imaging studies including CT of the brain. 5. Monitor electrolytes 6. Check thyroid studies as well as cortisol level 7. Review medications 8. Neurochecks every 4 hours 9. GI DVT prophylaxis - Advance Directives Does patient have a Living Will: No Does patient have a Durable POA for Healthcare: No
[2023-12-14] MEDS: NA CHLORIDE 0.9% 1,000 ML IV SCH (15:00)
[2023-12-14] MEDS: MORPHINE 2 MG/ML SYR IV PRN (16:25)
[2023-12-14 17:19] VITALS: BMI 29.7
[2023-12-15 07:23] LABS: Absolute Basophils 0.1 K/uL (0-0.5); Absolute Eosinophils 0.2 K/uL (0-0.5); Absolute Lymphocytes (CBC) 0.9 K/uL (0.7-4.9); Absolute Monocytes 0.7 K/uL (0.1-1.3); Absolute Neutrophil 5.9 K/uL (1.8-8.0); Hematocrit 27.8 % (36.0-45.0); Hemoglobin 8.9 g/dL (12.0-15.0); Lymphocytes % 11.9 % (15.3-44.8); MCH 26.1 pg (27.0-35.0); MCHC 32.1 g/dL (32.0-36.0); MCV 81.4 fL (80-100); MPV 7.3 fL (7.6-11.3); Monocytes % 9.5 % (3.3-12.3); Neutrophils % 75.6 % (41.7-73.7); Platelets 234 thou/uL (152-406); RBC Red Blood Cell Count 3.41 M/uL (3.86-4.86); Red Cell Distribution Width 17.1 % (12.1-15.2)
[2023-12-15 07:42] LABS: Albumin 2.9 g/dL (3.4-5.0); Albumin/Globulin Ratio 0.8 (1.1-1.8); Anion Gap 9.1 mEq/L (5.0-15.0); Bilirubin Total 0.6 mg/dL (0.2-1.0); Globulin 3.6 g/dL (2.3-3.5); Potassium 3.1 mEq/L (3.5-5.1); Protein, Total 6.5 g/dL (6.4-8.2); Troponin High Sensitivity 51.2 pg/mL (<58.9)
[2023-12-15 08:02] LABS: Thyroid Stimulating Hormone 10.6 uIU/mL (0.358-3.740)
[2023-12-15] MEDS: POTASSIUM CL SA 10 MEQ TAB PO ONE ×2 (09:40→17:01)
[2023-12-15] MEDS: cloNIDine HCL 0.1 MG TAB PO SCH (10:01)
[2023-12-15] MEDS: ACETAMINOPHEN 500 MG TAB PO PRN (15:02)
[2023-12-15] MEDS: HYDROCORTISONE SUC 100 MG INJ IV ONE (15:02)
--- NOTE | 2023-12-15 16:33 | P.PN ---
Subjective Date of Service: 12/15/23 Patient remains obtunded. Patient remains confused. She is getting out of bed and she feels like she has her cath next-door. She could be sundowning. She has delirium. Will continue with physical therapy evaluation. Patient's son is worried that she has been getting more forgetful. Review of Systems 10-point ROS is otherwise unremarkable Physical Examination - Vital Signs Temperature: 98 F (reviewed) Blood Pressure: 192/81 Pulse: 72 Respirations: 17 Pulse Ox (%): 91 - Physical Exam General: Alert, In no apparent distress, Confused, Delirious Respiratory: Clear to auscultation bilaterally, Normal air movement Cardiovascular: Regular rate/rhythm, Normal S1 S2, No murmurs Gastrointestinal: Normal bowel sounds, Soft and benign, Non-distended, No tenderness Musculoskeletal: No clubbing, No swelling, No tenderness Integumentary: No rashes Neurological: Sensation intact, Cranial nerves 3-12 intact - Studies Laboratory Data (last 24 hrs) 12/15/23 12/15/23 06:31 06:31 WBC 7.80 Hgb 8.9 L D Hct 27.8 L Plt Count 234 Sodium 140 Potassium 3.1 L BUN 23 H Creatinine 1.97 H Glucose 76 Total Bilirubin 0.6 AST 35 ALT 16 Alkaline Phosphatase 100 Triglycerides 84 Cholesterol 147 HDL Cholesterol 73 H Cholesterol/HDL Ratio 2.01 Medications List Reviewed: Yes Assessment & Plan - Problems (Diagnosis) (1) CKD (chronic kidney disease) Onset Date: 10/03/17 Current Visit: No Status: Acute (2) COPD (chronic obstructive pulmonary disease) with emphysema Current Visit: No Status: Acute (3) Depression Onset Date: 10/03/17 Current Visit: No Status: Acute (4) Hypertension Onset Date: 10/03/17 Current Visit: No Status: Acute (5) Hypothyroid Onset Date: 10/03/17 Current Visit: No Status: Acute (6) Vertigo Current Visit: No Status: Acute (7) Benign hypertension Current Visit: No Status: Chronic (8) Status post fall Current Visit: Yes Status: Acute (9) Delirium Current Visit: Yes Status: Acute - Plan 1. Gentle hydration 2. Panculture 3. IV antibiotic prophylactically 4. MRI of the brain if mentation not improving 5. Monitor electrolytes 6. Electrolytes and thyroid studies pending 7. Review medications; may add Seroquel for encephalopathy. 8. Continue with neurochecks every 4 hours 9. GI DVT prophylaxis Discharge Plan: Home Plan to discharge in: Greater than 2 days - Advance Directives Does patient have a Living Will: No Does patient have a Durable POA for Healthcare: No - Code Status/Comfort Care Code Status Assessed: Yes Code Status: Full Code Critical Care: No Time Spent Managing PTS Care (In Minutes): 45
[2023-12-15] MEDS: METOPROLOL TAR 25 MG TAB PO SCH (17:01)
[2023-12-15] MEDS: ATORVASTATIN 10 MG TAB PO SCH (20:40)
[2023-12-15] MEDS: ESCITALOPRAM 20 MG TAB PO SCH (20:40)
[2023-12-15] MEDS: HYDRALAZINE HCL 20 MG/ML VIAL IV PRN (20:40)
[2023-12-15] MEDS: LOSARTAN POTASSIUM 50 MG TABLET PO SCH (20:40)
[2023-12-15] MEDS ORDERED: BUPROPION HCL 150 MG PO SCH (21:00)
[2023-12-15] MEDS ORDERED: ROPINIROLE HCL 1 MG TAB PO SCH (21:00)
[2023-12-15] MEDS ORDERED: BUPROPRION HCL S.R. 150MG TAB PO SCH (21:00)
[2023-12-15] MEDS ORDERED: ESCITALOPRAM 20 MG TAB PO SCH (21:00)
[2023-12-15] MEDS ORDERED: HOME MED 1 EA UNK (Ropinirole Hcl [Ropinirole Hcl] 4 MG Tablet) PO SCH (21:00)
[2023-12-15] MEDS: QUETIAPINE 25 MG TAB PO ONE (21:19)
[2023-12-16 07:34] LABS: Albumin 2.8 g/dL (3.4-5.0); Albumin/Globulin Ratio 0.8 (1.1-1.8); Anion Gap 7.9 mEq/L (5.0-15.0); Bilirubin Total 0.4 mg/dL (0.2-1.0); Globulin 3.4 g/dL (2.3-3.5); Magnesium 2.8 mg/dL (1.6-2.4); Phosphorus 3.3 mg/dL (2.5-4.9); Potassium 3.9 mEq/L (3.5-5.1); Protein, Total 6.2 g/dL (6.4-8.2)
[2023-12-16 08:09] LABS: Absolute Basophils 0.1 K/uL (0-0.5); Absolute Eosinophils 0.1 K/uL (0-0.5); Absolute Lymphocytes (CBC) 1.3 K/uL (0.7-4.9); Absolute Monocytes 0.8 K/uL (0.1-1.3); Absolute Neutrophil 5.9 K/uL (1.8-8.0); Basophils % 0.8 % (0-1.3); Eosinophils % 1.2 % (0-4.4); Hematocrit 26.7 % (36.0-45.0); Hemoglobin 8.5 g/dL (12.0-15.0); Lymphocytes % 15.8 % (15.3-44.8); MCH 25.9 pg (27.0-35.0); MCHC 31.8 g/dL (32.0-36.0); MCV 81.4 fL (80-100); Neutrophils % 72.2 % (41.7-73.7); Platelets 238 thou/uL (152-406); RBC Red Blood Cell Count 3.28 M/uL (3.86-4.86)
[2023-12-16] MEDS ORDERED: OXYBUTYNIN CHLORIDE 15 MG PO SCH (09:00)
[2023-12-16] MEDS ORDERED: HOME MED 1 EA UNK (Furosemide [Lasix] 80 MG Tablet) PO SCH (09:00)
[2023-12-16] MEDS ORDERED: LEVOTHYROXINE SOD 0.025 MG TAB PO SCH (09:00)
[2023-12-16] MEDS ORDERED: AMLODIPINE 5 MG TAB PO SCH (09:00)
[2023-12-16] MEDS ORDERED: OXYBUTYNIN ER 5 MG TAB PO SCH (09:00)
[2023-12-16] MEDS ORDERED: HOME MED 1 EA UNK (Lovastatin [Lovastatin] 20 MG Tablet) PO SCH (09:00)
[2023-12-16] MEDS: LEVOTHYROXINE SOD 0.112 MG TAB PO SCH (09:11)
[2023-12-16] MEDS: POTASSIUM CL SA 10 MEQ TAB PO ONE (09:11)
[2023-12-16] MEDS: AMLODIPINE 5 MG TAB PO SCH (09:11)
[2023-12-16] MEDS: allopurinoL 100 MG TAB PO SCH (09:12)
[2023-12-17 06:26] LABS: Absolute Basophils 0.1 K/uL (0-0.5); Absolute Eosinophils 0.3 K/uL (0-0.5); Absolute Lymphocytes (CBC) 1.2 K/uL (0.7-4.9); Absolute Monocytes 0.8 K/uL (0.1-1.3); Absolute Neutrophil 7.2 K/uL (1.8-8.0); Basophils % 1.1 % (0-1.3); Eosinophils % 3.1 % (0-4.4); Hematocrit 28.8 % (36.0-45.0); Hemoglobin 9.4 g/dL (12.0-15.0); Lymphocytes % 12.6 % (15.3-44.8); MCH 26.6 pg (27.0-35.0); MCHC 32.5 g/dL (32.0-36.0); MCV 81.9 fL (80-100); MPV 7.3 fL (7.6-11.3); Monocytes % 8.5 % (3.3-12.3); Neutrophils % 74.7 % (41.7-73.7); Nucleated Red Blood Cells % 0.1 % (0-0); Platelets 282 thou/uL (152-406); RBC Red Blood Cell Count 3.52 M/uL (3.86-4.86); Red Cell Distribution Width 17.2 % (12.1-15.2)
[2023-12-17 06:41] LABS: Albumin 2.7 g/dL (3.4-5.0); Albumin/Globulin Ratio 0.7 (1.1-1.8); Anion Gap 8.7 mEq/L (5.0-15.0); Bilirubin Total 0.6 mg/dL (0.2-1.0); Globulin 3.8 g/dL (2.3-3.5); Potassium 4.7 mEq/L (3.5-5.1); Protein, Total 6.5 g/dL (6.4-8.2)
--- NOTE | 2023-12-17 10:54 | P.PN ---
Subjective Date of Service: 12/17/23 Chief Complaint: Multiple falls Pt is resting comfortably in bed. She is feeling good. Pt is eager to go home. Waiting for PT eval. No other complaints. Review of Systems General: Unremarkable Eyes: Unremarkable ENT: Unremarkable Respiratory: Unremarkable Cardiovascular: Unremarkable Gastrointestinal: Unremarkable Genitourinary: Unremarkable Musculoskeletal: Unremarkable Integumentary: Unremarkable Neurological: Unremarkable Lymphatics: Unremarkable Physical Examination - Vital Signs Temperature: 97.4 F Blood Pressure: 155/70 Pulse: 59 Respirations: 15 Pulse Ox (%): 92 - Physical Exam General: Alert, In no apparent distress, Oriented x3 HEENT: Atraumatic, Normocephalic, PERRLA Neck: Supple, 2+ carotid pulse no bruit Respiratory: Clear to auscultation bilaterally, Normal air movement Cardiovascular: No edema, Normal pulses, Regular rate/rhythm, Normal S1 S2 Capillary refill: <2 Seconds Gastrointestinal: Normal bowel sounds, Soft and benign, Non-distended Musculoskeletal: No clubbing, No swelling Integumentary: No rashes, No breakdown, No significant lesion Neurological: Normal gait, Normal strength at 5/5 x4 extr, Normal tone, Sensation intact Lymphatics: No axilla or inguinal lymphadenopathy - Studies Medications List Reviewed: Yes Assessment And Plan - Plan Acute Delirium: resolved. Pt is AA0x3. No need for MRI brain at this time. Low threshold to start seroquel. No growth on cultures. CKD stage 3: cr is 1.92. Will avoid nephrotoxins and monitor renal function. Hx of COPD: Stable. Not in exacerbation. Continue prn duoneb. Depression: Continue home med Htn: Continue home med Hypothyroidism: TSH is 10.6 and free T4 is 0.79. Will continue synthroid 112mcg po daily. Fall: Continue fall precaution. Will check vitamin D. Vertigo: Will continue meclizine. GI ppx: protnix DVT prophylaxis: heparin Discharge Plan: Home
[2023-12-17] MEDS ORDERED: MECLIZINE HCL 12.5 MG TAB PO PRN (10:59)
--- NOTE | 2023-12-17 18:24 | RAD REPORT ---
EXAM DESCRIPTION: MRI - Brain Wo Cont - 12/17/2023 3:39 pm CLINICAL HISTORY: AMS COMPARISON: Head CT 12/14/2023. MRI brain 06/19/2023 and 03/04/2020 TECHNIQUE: Multiplanar multisequence MRI of the brain performed without IV contrast. FINDINGS: No evidence of acute infarct or other diffusion signal abnormality. No evidence of acute intracranial hemorrhage or abnormal extra-axial fluid collections. Mild diffuse parenchymal volume loss. Ventricular caliber is stable. Midline structures are unremarka ble. Patchy periventricular and central pontine white matter T2/FLAIR hyperintensities, nonspecific, and s table, most suggestive of chronic small vessel ischemic changes. No mass effect or midline shift. Major vascular flow voids are preserved. Mastoid air cells and paranasal sinuses are clear. IMPRESSION: No acute intracranial process. No evidence of ventriculomegaly or mass effect. Stable chronic findings as above.
--- NOTE | 2023-12-18 11:09 | P.PN ---
Subjective Date of Service: 12/18/23 Chief Complaint: Multiple falls Pt is resting comfortably in bed. She is feeling good. Pt will need SNF placement given history of visual hallucination. No other complaints. Review of Systems General: Unremarkable Eyes: Unremarkable ENT: Unremarkable Respiratory: Unremarkable Cardiovascular: Unremarkable Gastrointestinal: Unremarkable Genitourinary: Unremarkable Musculoskeletal: Unremarkable Integumentary: Unremarkable Neurological: Unremarkable Lymphatics: Unremarkable Physical Examination - Vital Signs Temperature: 97.3 F Blood Pressure: 138/52 Pulse: 60 Respirations: 17 Pulse Ox (%): 96 - Physical Exam General: Alert, In no apparent distress, Oriented x3 HEENT: Atraumatic, Normocephalic, PERRLA Neck: Supple, 2+ carotid pulse no bruit Respiratory: Clear to auscultation bilaterally, Normal air movement Cardiovascular: No edema, Normal pulses, Regular rate/rhythm, Normal S1 S2 Capillary refill: <2 Seconds Gastrointestinal: Normal bowel sounds, Soft and benign, Non-distended Musculoskeletal: No clubbing, No swelling Integumentary: No rashes, No breakdown Neurological: Normal gait, Normal speech, Normal strength at 5/5 x4 extr Lymphatics: No axilla or inguinal lymphadenopathy - Studies Medications List Reviewed: Yes Assessment And Plan - Plan Acute Delirium: resolved. Pt is AA0x3. MRI brain is unremarkable. Low threshold to start seroquel. No growth on cultures. CKD stage 3: cr is 1.92. Will avoid nephrotoxins and monitor renal function. Hx of COPD: Stable. Not in exacerbation. Continue prn duoneb. Depression: Continue home med Htn: Continue home med Hypothyroidism: TSH is 10.6 and free T4 is 0.79. Will continue synthroid 112mcg po daily. Fall: Continue fall precaution. Will check vitamin D. Vertigo: Will continue meclizine. GI ppx: protnix DVT prophylaxis: heparin Discharge Plan: Home
--- NOTE | 2023-12-18 14:16 | EKG ---
Test Date: 2023-12-14 Test Time: 11:09:02 Jewel Waxer: JENNIFER MEASUREMENT RESULTS: Intervals: Rate: 76 FL: 230 QRSD: 122 QT: 458 QTc: 515 Art: P: 56 FL: 230 QRS: -34 T: 32 INTERPRETIVE STATEMENTS: Sinus rhythm with 1st degree AV block Left axis deviation Left ventricular hypertrophy with QRS widening Abnormal ECG Compared to ECG 12/13/2023 09:33:58 No significant changes Electronically Signed On 12-18-23 14:08:08 CDT by Andre Arriaga
[2023-12-19 04:00] LABS: Absolute Basophils 0.1 K/uL (0-0.5); Absolute Lymphocytes (CBC) 0.4 K/uL (0.7-4.9); Absolute Monocytes 0.8 K/uL (0.1-1.3); Absolute Neutrophil 18.8 K/uL (1.8-8.0); Basophils % 0.7 % (0-1.3); Eosinophils % 0.1 % (0-4.4); Hematocrit 28.7 % (36.0-45.0); Hemoglobin 9.2 g/dL (12.0-15.0); Lymphocytes % 2.2 % (15.3-44.8); MCH 26.4 pg (27.0-35.0); MCHC 32.1 g/dL (32.0-36.0); MCV 82.3 fL (80-100); MPV 7.6 fL (7.6-11.3); Monocytes % 3.8 % (3.3-12.3); Neutrophils % 93.2 % (41.7-73.7); Platelets 239 thou/uL (152-406); RBC Red Blood Cell Count 3.49 M/uL (3.86-4.86); Red Cell Distribution Width 17.5 % (12.1-15.2)
[2023-12-19 04:33] LABS: Anion Gap 11.5 mEq/L (5.0-15.0); Potassium 4.5 mEq/L (3.5-5.1)
[2023-12-19 04:43] LABS: Band Neutrophils 14 % (0-1); Blood Morphology Comment NOT SEEN (NOT SEEN); Differential Total Cells Count 100; Lymphocytes 0 % (15-42); Monocytes 1 % (0-10); Platelet Estimate ADEQ; Reactive Lymphocytes 3 %; Segmented Neutrophils 82 % (40-80)
--- NOTE | 2023-12-19 09:18 | P.PN ---
Subjective Date of Service: 12/19/23 Chief Complaint: Multiple falls Pt is resting comfortably in bed. She was sleeping when I saw her. Pt will need SNF placement given history of visual hallucination. No other complaints. Review of Systems General: Unremarkable Eyes: Unremarkable ENT: Unremarkable Respiratory: Unremarkable Cardiovascular: Unremarkable Gastrointestinal: Unremarkable Genitourinary: Unremarkable Musculoskeletal: Unremarkable Integumentary: Unremarkable Neurological: Unremarkable Lymphatics: Unremarkable Physical Examination - Vital Signs Temperature: 98.9 F Blood Pressure: 173/74 Pulse: 59 Respirations: 18 Pulse Ox (%): 92 - Physical Exam General: Alert, In no apparent distress, Oriented x3 HEENT: Atraumatic, Normocephalic Neck: Supple, 2+ carotid pulse no bruit Respiratory: Clear to auscultation bilaterally, Normal air movement Cardiovascular: No edema, Normal pulses, Regular rate/rhythm, Normal S1 S2 Capillary refill: <2 Seconds Gastrointestinal: Normal bowel sounds, Soft and benign, Non-distended Musculoskeletal: No clubbing, No swelling Integumentary: No rashes, No breakdown Neurological: Normal gait, Normal speech, Normal strength at 5/5 x4 extr Lymphatics: No axilla or inguinal lymphadenopathy - Studies Medications List Reviewed: Yes Assessment And Plan - Plan Acute Delirium: resolved. Pt is AA0x3. MRI brain is unremarkable. Low threshold to start seroquel. No growth on cultures. Leukocytosis: WBC increased from 9.7 to 20.2. Unknown etiology. Pt is not on steroid. No fever. CXR and UA are unremarkable on admission. Will monitor. CKD stage 3: cr is 1.92. Will avoid nephrotoxins and monitor renal function. Hx of COPD: Stable. Not in exacerbation. Continue prn duoneb. Depression: Continue home med Htn: Continue home med Hypothyroidism: TSH is 10.6 and free T4 is 0.79. Will continue synthroid 112mcg po daily. Fall: Continue fall precaution. Will check vitamin D. Vertigo: Will continue meclizine. Deconditioning: Continue PT. GI ppx: protnix DVT prophylaxis: heparin Discharge Plan: Will dc pt to SNF
[2023-12-19 14:39] LABS: Blood Gas Oxyhemoglobin 94.2 % (94-97); Blood O2 Saturation 96.6 % (92-98.5)
[2023-12-19 14:40] LABS: Arterial Blood Carboxyhemoglob 1.5 % (0-1.5); Blood Gas THB 9.7 g/dl (12-18)
--- NOTE | 2023-12-19 15:39 | RAD REPORT ---
EXAM DESCRIPTION: Vishnu Single View12/19/2023 3:21 pm CLINICAL HISTORY: Chest pain COMPARISON: December 14, 2023 FINDINGS: A few areas of scarring within the lungs. The lungs appear clear of acute infiltrate. The heart is mildly enlarged IMPRESSION: No acute abnormalities displayed
[2023-12-19] MEDS: ONDANSETRON 4 MG/2 ML VIAL IV PRN (22:08)
[2023-12-20] MEDS: METOPROLOL TARTRATE 5 MG/5 ML INJ IV STA (00:05)
[2023-12-20] MEDS: Magnesium Sulfate 2gm IVPB 2 G/50 ML BAG IV ONE (00:40)
[2023-12-20 01:15] LABS: Absolute Basophils 0.1 K/uL (0-0.5); Absolute Lymphocytes (CBC) 0.4 K/uL (0.7-4.9); Absolute Neutrophil 13.7 K/uL (1.8-8.0); Basophils % 0.4 % (0-1.3); Eosinophils % 0.1 % (0-4.4); Hematocrit 27.3 % (36.0-45.0); Hemoglobin 8.9 g/dL (12.0-15.0); Lymphocytes % 2.4 % (15.3-44.8); MCH 26.2 pg (27.0-35.0); MCHC 32.5 g/dL (32.0-36.0); MCV 80.5 fL (80-100); MPV 7.9 fL (7.6-11.3); Monocytes % 6.7 % (3.3-12.3); Neutrophils % 90.4 % (41.7-73.7); Nucleated Red Blood Cells % 0.1 % (0-0); Platelets 200 thou/uL (152-406); Red Cell Distribution Width 17.1 % (12.1-15.2)
[2023-12-20 01:31] LABS: Anion Gap 12.4 mEq/L (5.0-15.0); Magnesium 2.2 mg/dL (1.6-2.4); Potassium 4.4 mEq/L (3.5-5.1)
[2023-12-20 01:32] LABS: Troponin High Sensitivity 213.9 pg/mL (<58.9)
[2023-12-20] MEDS: METOPROLOL TAR 25 MG TAB PO SCH (05:48)
--- NOTE | 2023-12-20 10:16 | P.PN ---
Subjective Date of Service: 12/20/23 Chief Complaint: Multiple falls Pt is resting comfortably in bed. She is using 2L BNC. She has leukocytosis and elevated procalcitonin (7.81). Will continue empiric abx. Na is 129. Pt will need SNF placement given history of visual hallucination. No other complaints. Review of Systems General: Weakness Eyes: Unremarkable ENT: Unremarkable Respiratory: Unremarkable Cardiovascular: Unremarkable Gastrointestinal: Unremarkable Genitourinary: Unremarkable Musculoskeletal: Unremarkable Integumentary: Unremarkable Neurological: Unremarkable Lymphatics: Unremarkable Physical Examination - Vital Signs Temperature: 97.9 F Blood Pressure: 110/60 Pulse: 125 Respirations: 18 Pulse Ox (%): 96 - Physical Exam General: Alert, In no apparent distress, Oriented x3 HEENT: Atraumatic, Normocephalic, PERRLA Neck: Supple, 2+ carotid pulse no bruit Respiratory: Clear to auscultation bilaterally, Normal air movement Cardiovascular: No edema, Normal pulses, Regular rate/rhythm Capillary refill: <2 Seconds Gastrointestinal: Normal bowel sounds, Soft and benign, Non-distended Musculoskeletal: No clubbing, No swelling Integumentary: No rashes, No breakdown Neurological: Normal gait, Normal speech, Normal strength at 5/5 x4 extr Lymphatics: No axilla or inguinal lymphadenopathy - Studies Medications List Reviewed: Yes Assessment And Plan - Plan Acute Delirium: resolved. Pt is AA0x3. MRI brain is unremarkable. Low threshold to start seroquel. No growth on cultures. Leukocytosis: WBC increased from 9.7 -> 20.2 -> 15.2. Unknown etiology. Procalcitonin is 7.81. Will give empiric abx. Pt is not on steroid. No fever. CXR and UA are unremarkable on admission. Will monitor. Acute resp failure with hypoxia: Pt is using 2L BNC. Will continue prn duoneb. CXR is unremarkable. CKD stage 3: cr is 1.99<- 1.92. Will avoid nephrotoxins and monitor renal f unction. Hx of COPD: Stable. Not in exacerbation. Continue prn duoneb. Depression: Continue home med Htn: Continue home med Hypothyroidism: TSH is 10.6 and free T4 is 0.79. Will continue synthroid 112mcg po daily. Fall: Continue fall precaution. Will check vitamin D. Vertigo: Will continue meclizine. Deconditioning: Continue PT. GI ppx: protnix DVT prophylaxis: heparin Discharge Plan: Will dc pt to SNF when medically stable
[2023-12-20] MEDS: VANCOMYCIN 1 GM in NA CHLORIDE 0.9% 250 ML IVPB SCH (11:35)
[2023-12-20] MEDS: CEFTRIAXONE 1,000 MG in NA CHLORIDE 0.9% 50 ML IVPB SCH (11:35)
[2023-12-20] MEDS: CLOPIDOGREL 75 MG TABLET PO SCH (11:38)
[2023-12-20] MEDS: AMIODARONE HCL 200 MG TAB PO SCH (11:39)
--- NOTE | 2023-12-20 12:23 | P.CNS ---
Date of Consult: 12/20/23 Chief Complaint: Multiple falls History of Present Illness: Patient with PMH of CAD s/p recent PCI of RCA on 07/2023, CKD, presented with complain of multiple falls, patient denies passing out and report all of them as mechanical falls due to feeling weak, no chest pain, no SOB, no palpitations, no syncope. Allergies moxifloxacin HCl [From Avelox] Allergy (Intermediate, Verified 09/20/22 19:25) Itching/Hives/Rash adhesive [Adhesive] Adverse Reaction (Intermediate, Verified 09/20/22 19:25) Rash band-aid adhesive Allergy (Uncoded 10/03/17 08:51) Unknown Home Medications: RX: Escitalopram Oxalate [Lexapro] 20 mg PO BID 11/19/11 RX: Levothyroxine [Synthroid*] 0.125 mg PO DAILY 11/19/11 RX: Lovastatin 20 mg PO DAILY 04/13/23 RX: Amlodipine [Norvasc*] 5 mg PO DAILY 06/21/23 RX: buPROPion HCL [Bupropion HCl Sr] 150 mg PO BID 06/21/23 RX: Ropinirole HCl 4 mg PO BID 07/31/23 Furosemide [Lasix] 160 mg PO DAILY 12/14/23 Oxybutynin Chloride [Oxybutynin Chloride ER] 15 mg PO DAILY 12/14/23 RX: Levothyroxine [Synthroid*] 0.112 mg PO DAILY 12/14/23 RX: allopurinoL [Allopurinol] 100 mg PO DAILY 12/14/23 cloNIDine HCL [Clonidine HCl] 0.1 mg PO PRN 12/14/23 - Past Medical/Surgical History Diabetic: No -: Hypertension -: Dyslipidemia -: Hypothyroidism -: Restless leg syndrome -: Gastroesophageal reflux disease -: depression -: Chronic diastolic congestive heart failure -: CKD 4 -: Arthritis -: Eczema -: Afib -: CVA -: Bilateral knee replacement -: left shoulder replacement 2011 -: breast reduction -: gastric banding -: removal of adhesions and scar tissue -: benein tumor removal -: Cholecystectomy -: Partial hysterectomy Psychosocial/ Personal History: Patient is retired, lives at home with her family - Family History MOM Medical History: Cancer Notes: BREAST FATH Medical History: Cancer Notes: [place] - Social History Smoking Status: Former smoker Alcohol use: No CD- Drugs: No Caffeine use: Yes Place of Residence: Home Review of Systems 10-point ROS is otherwise unremarkable Physical Examination Temp Pulse Resp BP Pulse Ox 97.9 F 125 H 18 110/60 96 12/20/23 10:16 12/20/23 10:16 12/20/23 10:16 12/20/23 10:16 12/20/23 10:16 General: Alert, Oriented x3 HEENT: Atraumatic Neck: Supple Respiratory: Clear to auscultation bilaterally Cardiovascular: No edema, Normal S1 S2 Gastrointestinal: Normal bowel sounds - Problems (1) CAD (coronary artery disease) Current Visit: Yes Status: Acute Plan: Patient with recent PCI to RCA, reviewed patient medications and there is no ASA or Plavix in her bag, so not sure about compliance. Continue ASA 81 mg daily Continue Plavix 75 mg daily start lipitor 40 mg daily. Continue to trend patient troponin (2) Atrial fibrillation Current Visit: Yes Status: Acute Plan: reviewed patient Tele and it looks like she went into AF RVR and abberancy overnight. Start Amiodarone 200 mg po BID Continue Metoprolol 50 mg po BID (3) Hypertension Onset Date: 10/03/17 Current Visit: No Status: Acute Plan: Continue Metoprolol 50 mg po BID Conitnue Losartan 50 mg BID Stop Norvasc. (4) Benign hypertension Current Visit: No Status: Chronic
[2023-12-21 04:08] LABS: Absolute Basophils 0.1 K/uL (0-0.5); Absolute Eosinophils 0.3 K/uL (0-0.5); Absolute Lymphocytes (CBC) 0.8 K/uL (0.7-4.9); Absolute Monocytes 1.1 K/uL (0.1-1.3); Absolute Neutrophil 6.3 K/uL (1.8-8.0); Basophils % 0.7 % (0-1.3); Eosinophils % 3.2 % (0-4.4); Hematocrit 26.9 % (36.0-45.0); Hemoglobin 8.7 g/dL (12.0-15.0); Lymphocytes % 9.4 % (15.3-44.8); MCH 26.4 pg (27.0-35.0); MCHC 32.5 g/dL (32.0-36.0); MCV 81.3 fL (80-100); MPV 8.1 fL (7.6-11.3); Neutrophils % 73.7 % (41.7-73.7); Nucleated Red Blood Cells % 0.1 % (0-0); Platelets 198 thou/uL (152-406); RBC Red Blood Cell Count 3.31 M/uL (3.86-4.86); Red Cell Distribution Width 17.3 % (12.1-15.2)
[2023-12-21 04:28] LABS: Anion Gap 11.5 mEq/L (5.0-15.0); Potassium 4.5 mEq/L (3.5-5.1)
--- NOTE | 2023-12-21 07:02 | ECHO ---
HEIGHT: 4 ft 11 in WEIGHT: 147 lb 0 oz DATE OF STUDY: 12/20/[address]: Marco A Nevarez MD 2-DIMENSIONAL: YES M.MODE: YES DOPPLER: YES COLOR FLOW: YES TDS: PORTABLE: YES DEFINITY: BUBBLE STUDY: DIAGNOSIS: NON ST ELEVATION MYOCARDIAL INFARCTION CARDIAC HISTORY: CATHERIZATION: SURGERY: PROSTHETIC VALVE: PACEMAKER: MEASUREMENTS (cm) DIASTOLIC (NORMALS) SYSTOLIC (NORMALS) IVSd 1.3 (0.6-1.2) LA Diam 4.2 (1.9-4.0) LVEF 55% LVIDd 4.3 (3.5-5.7) LVIDs 2.6 (2.0-3.5) %FS 40% LVPWd 1.2 (0.6-1.2) Ao Diam 3.5 (2.0-3.7) 2 DIMENSIONAL ASSESSMENT: RIGHT ATRIUM: NORMAL LEFT ATRIUM: ENLARGED RIGHT VENTRICLE: NORMAL LEFT VENTRICLE: LEFT VENTRICULAR HYPERTROPHY TRICUSPID VALVE: MILD TRICUSPID REGURGITATION MITRAL VALVE: TRACE MITRALREGURGITATION PULMONIC VALVE: MILD PULMONIC INSUFFICIENCY AORTIC VALVE: MILD AORTIC INSUFFICIENCY PERICARDIAL EFFUSION: NONE AORTIC ROOT: NORMAL LEFT VENTRICULAR WALL MOTION: NORMAL DOPPLER/COLOR FLOW: SEE BELOW COMMENTS: 1. NORMAL LEFT VENTRICULAR EJECTION FRACTION 55-60% 2. ATRIAL FIBRILLATION 3. LEFT ATRIAL ENLARGEMENT 4. MILD CONCENTRIC LEFT VENTRICULAR HYPERTROPHY 5. MILD TRICUSPID REGURGITATION, AORTIC INSUFFICIENCY, MITRAL REGURGITATION, PULMONIC INSUFFICIENCY TECHNOLOGIST: KOLTON SANTIAGO
[2023-12-21] MEDS: ASPIRIN EC 81 MG TAB PO SCH (07:58)
--- NOTE | 2023-12-21 10:02 | P.PN ---
Subjective Date of Service: 12/21/23 Chief Complaint: Multiple falls Pt is resting comfortably in bed. She is using 2L BNC. Leukocytosis has improved. Procalcitonin is elevated (7.81). Will continue empiric abx. Na is 132 <- 129. Pt will need SNF placement given history of visual hallucination. No other complaints. Review of Systems General: Unremarkable Eyes: Unremarkable ENT: Unremarkable Respiratory: Unremarkable Cardiovascular: Unremarkable Gastrointestinal: Unremarkable Genitourinary: Unremarkable Musculoskeletal: Unremarkable Integumentary: Unremarkable Neurological: Unremarkable Lymphatics: Unremarkable Physical Examination - Vital Signs Temperature: 97.1 F Blood Pressure: 90/60 Pulse: 88 Respirations: 15 Pulse Ox (%): 98 - Physical Exam General: Alert, In no apparent distress, Oriented x3 HEENT: Atraumatic, Normocephalic, PERRLA Neck: Supple, 2+ carotid pulse no bruit Respiratory: Clear to auscultation bilaterally, Normal air movement Cardiovascular: No edema, Normal pulses, Regular rate/rhythm, Normal S1 S2 Capillary refill: <2 Seconds Gastrointestinal: Normal bowel sounds, Soft and benign, Non-distended Musculoskeletal: No clubbing, No swelling Integumentary: No rashes, No breakdown, No significant lesion Neurological: Normal gait, Normal speech, Normal strength at 5/5 x4 extr Lymphatics: No axilla or inguinal lymphadenopathy - Studies Medications List Reviewed: Yes Assessment And Plan - Plan Acute Delirium: resolved. Pt is AA0x3. MRI brain is unremarkable. Low threshold to start seroquel. No growth on cultures. Leukocytosis: WBC increased from 9.7 -> 20.2 -> 15.2 -> 8.5. Unknown etiology. Procalcitonin is 7.81. Will continue empiric abx. Pt is not on steroid. No fever. CXR and UA are unremarkable on admission. Will monitor. Acute resp failure with hypoxia: Pt is using 2L BNC. Will continue prn duoneb. CXR is unremarkable. CKD stage 3: cr is 2.26<- 1.99<- 1.92. Will avoid nephrotoxins and monitor renal function. Off iv vanc. Consulted Nephrology Hx of COPD: Stable. Not in exacerbation. Continue prn duoneb. Depression: Continue home med Htn: Continue home med Hypothyroidism: TSH is 10.6 and free T4 is 0.79. Will continue synthroid 112mcg po daily. Fall: Continue fall precaution. Will check vitamin D. Vertigo: Will continue meclizine. Deconditioning: Continue PT. GI ppx: protnix DVT prophylaxis: heparin Discharge Plan: Will dc pt to SNF when medically stable
--- NOTE | 2023-12-21 11:40 | P.PN ---
[facility] Renal note: Consult placed under Dr. Vergara but spoke with pt and she states she sees Dr. Ignacio as an OP and last renal consult in the EMR from Aug was performed by Dr. Marlow so asked RN to notify the other group to see their pt. Andres Jon MD, REGULO
--- NOTE | 2023-12-21 13:22 | P.CNS ---
Date of Consult: 12/21/23 Reason for Consult: Renal failure Requesting Physician: Marvin Head Chief Complaint: Multiple falls History of Present Illness: 83F w/ PMHx of CKD4 presumed to be 2/2 Htn, baseline SCr 1.9-2.2 (GFR 23-26) as of November 2023, Htn, HLD, CAD s/p recent PCI of RCA on 07/2023, & COPD, who p/w mechanical falls & presyncope, admitte for further eval & mngt. SCr at 2.3 today. She c/o of some SOB. She denies urinary complaints. Allergies moxifloxacin HCl [From Avelox] Allergy (Intermediate, Verified 09/20/22 19:25) Itching/Hives/Rash adhesive [Adhesive] Adverse Reaction (Intermediate, Verified 09/20/22 19:25) Rash band-aid adhesive Allergy (Uncoded 10/03/17 08:51) Unknown Home Medications: Escitalopram Oxalate [Lexapro] 20 mg PO BID 11/19/11 Levothyroxine [Synthroid*] 0.125 mg PO DAILY 11/19/11 Lovastatin 20 mg PO DAILY 04/13/23 Amlodipine [Norvasc*] 5 mg PO DAILY 06/21/23 buPROPion HCL [Bupropion HCl Sr] 150 mg PO BID 06/21/23 Ropinirole HCl 4 mg PO BID 07/31/23 Furosemide [Lasix] 160 mg PO DAILY 12/14/23 Levothyroxine [Synthroid*] 0.112 mg PO DAILY 12/14/23 Oxybutynin Chloride [Oxybutynin Chloride ER] 15 mg PO DAILY 12/14/23 allopurinoL [Allopurinol] 100 mg PO DAILY 12/14/23 cloNIDine HCL [Clonidine HCl] 0.1 mg PO PRN 12/14/23 - Past Medical/Surgical History Diabetic: No -: Hypertension -: Dyslipidemia -: Hypothyroidism -: Restless leg syndrome -: Gastroesophageal reflux disease -: depression -: Chronic diastolic congestive heart failure -: CKD 4 -: Arthritis -: Eczema -: Afib -: CVA -: Bilateral knee replacement -: left shoulder replacement 2011 -: breast reduction -: gastric banding -: removal of adhesions and scar tissue -: benein tumor removal -: Cholecystectomy -: Partial hysterectomy Psychosocial/ Personal History: Patient is retired, lives at home with her family - Family History MOM Medical History: Cancer Notes: BREAST FATH Medical History: Cancer Notes: [place] - Social History Smoking Status: Former smoker Alcohol use: No CD- Drugs: No Caffeine use: Yes Place of Residence: Home Review of Systems General: Weakness Eyes: Unremarkable ENT: Throat Pain, Unremarkable Respiratory: Shortness of Breath Cardiovascular: Unremarkable Gastrointestinal: Unremarkable Genitourinary: Unremarkable Musculoskeletal: Other (mechanical falls) Integumentary: Unremarkable Neurological: Weakness Lymphatics: Unremarkable Physical Examination Temp Pulse Resp BP Pulse Ox 97.1 F 88 15 90/60 98 12/21/23 10:04 12/21/23 10:04 12/21/23 10:04 12/21/23 10:04 12/21/23 10:04 General: Other (Chronically ill appearing) HEENT: Atraumatic, Normocephalic Neck: Supple Respiratory: Other (Symmetric chest expansion) Cardiovascular: No rubs, No murmurs Gastrointestinal: Soft and benign Musculoskeletal: No clubbing, No swelling Integumentary: No warmth Neurological: Normal tone Urinary: Other (No bladder distention) External genitalia: Deferred Rectal: Deferred Conclusions/Impression: # CKD4 presumed to be 2/2 Htn nephrosclerosis Renal fxn currently at baseline, SCr at 2.3 today Baseline SCr 1.9-2.2 (GFR 23-26) as of November 2023 [place] po fluid intake Monitor renal panel # Htn Cont current med regimen # CAD, Chronic afib S/p recent PCI to RCA Per Cardiology # HLD Statin # Acute resp failure Hx of COPD Per other services # Hypothyroidism Synthroid # Deconditioning, mechanical falls PT/OT
--- NOTE | 2023-12-21 14:45 | P.PN ---
Subjective Date of Service: 12/21/23 Chief Complaint: Multiple falls Subjective: No new changes Review of Systems 10-point ROS is otherwise unremarkable Physical Examination - Vital Signs Temperature: 97.7 F Blood Pressure: 107/68 Pulse: 104 Respirations: 16 Pulse Ox (%): 100 - Physical Exam General: Alert, Oriented x3 HEENT: Atraumatic Neck: Supple Respiratory: Clear to auscultation bilaterally Cardiovascular: No edema, Irregular heart rate/rhythm Gastrointestinal: Normal bowel sounds - Studies Medications List Reviewed: Yes Assessment And Plan - Current Problems (Diagnosis) (1) CAD (coronary artery disease) Current Visit: Yes Status: Acute Plan: Patient with recent PCI to RCA, reviewed patient medications and there is no ASA or Plavix in her bag, so not sure about compliance. Stop ASA Continue Plavix 75 mg daily lipitor 40 mg daily. (2) Atrial fibrillation Current Visit: Yes Status: Acute Plan: patient still n AF. Amiodarone 200 mg po BID Continue Metoprolol 50 mg po BID start patient on Eliquis 5 mg po BID if still in AF by sunday then possible BEATRIZ DCCV. (3) Hypertension Onset Date: 10/03/17 Current Visit: No Status: Acute Plan: Continue Metoprolol 50 mg po BID lower Losartan to 50 mg daily. (4) Benign hypertension Current Visit: No Status: Chronic
[2023-12-22 00:10] LABS: Sqamous Epithelial <5 /HPF (None Seen); Urine Bacteria <20 /HPF (<20); Urine Bilirubin NEGATIVE (Negative); Urine Blood Negative (Negative); Urine Clarity Turbid (Clear); Urine Color Light-Yellow (Yellow); Urine Culture Reflex Order NOT NEEDED; Urine Glucose NEGATIVE (Negative); Urine Ketones NEGATIVE (Negative); Urine Microscopic Reflex YN ORDER UMIC; Urine Mucus Slight /HPF (None Seen); Urine Nitrite NEGATIVE (Negative); Urine Protein TRACE (Negative); Urine RBC <5 /HPF (None Seen); Urine Urobilinogen Normal (Normal); Urine WBC <5 /HPF (<5)
[2023-12-22 00:16] LABS: UR PROTEIN 33.5 mg/dL (<11.9); Urine Protein/Creatinine Ratio 0.68 ratio (<0.15)
[2023-12-22] MEDS: HYDROCODONE/APAP 5/325 MG TAB PO ONE (01:56)
[2023-12-22 08:04] LABS: Absolute Basophils 0.1 K/uL (0-0.5); Absolute Eosinophils 0.3 K/uL (0-0.5); Absolute Lymphocytes (CBC) 0.9 K/uL (0.7-4.9); Absolute Monocytes 0.8 K/uL (0.1-1.3); Absolute Neutrophil 3.8 K/uL (1.8-8.0); Basophils % 1.8 % (0-1.3); Eosinophils % 4.5 % (0-4.4); Hematocrit 27.1 % (36.0-45.0); Hemoglobin 8.7 g/dL (12.0-15.0); Lymphocytes % 15.4 % (15.3-44.8); MCH 26.4 pg (27.0-35.0); MCHC 32.1 g/dL (32.0-36.0); MCV 82.1 fL (80-100); Monocytes % 13.9 % (3.3-12.3); Neutrophils % 64.4 % (41.7-73.7); Nucleated Red Blood Cells % 0.1 % (0-0); Platelets 220 thou/uL (152-406); Red Cell Distribution Width 17.6 % (12.1-15.2)
[2023-12-22 08:24] LABS: Anion Gap 7.9 mEq/L (5.0-15.0); Potassium 4.9 mEq/L (3.5-5.1)
[2023-12-22] MEDS ORDERED: VANCOMYCIN 1 GM in NA CHLORIDE 0.9% 250 ML IVPB SCH (09:00)
[2023-12-22] MEDS: LOSARTAN POTASSIUM 50 MG TABLET PO SCH (09:00)
--- NOTE | 2023-12-22 10:59 | P.PN ---
Subjective Date of Service: 12/22/23 Chief Complaint: Multiple falls Pt is resting comfortably in bed. She is using 2L BNC. Leukocytosis has improved. Procalcitonin is elevated (7.81). Will continue empiric abx. Na is 138<- 132 <- 129. Cardiology is considering BEATRIZ cardioversion if A. fib persists. Pt will need SNF placement given history of visual hallucination. No other complaints. Review of Systems General: Unremarkable Eyes: Unremarkable ENT: Unremarkable Respiratory: SOB with Excertion Cardiovascular: Unremarkable Gastrointestinal: Unremarkable Genitourinary: Unremarkable Musculoskeletal: Unremarkable Integumentary: Unremarkable Neurological: Unremarkable Lymphatics: Unremarkable Physical Examination - Vital Signs Temperature: 96.9 F Blood Pressure: 106/58 Pulse: 71 Respirations: 12 Pulse Ox (%): 97 - Physical Exam General: Alert, In no apparent distress, Oriented x3 HEENT: Atraumatic, Normocephalic Neck: Supple, 2+ carotid pulse no bruit Respiratory: Clear to auscultation bilaterally, Normal air movement Cardiovascular: No edema, Normal pulses, Regular rate/rhythm, Normal S1 S2 Capillary refill: <2 Seconds Gastrointestinal: Normal bowel sounds, Soft and benign, Non-distended Musculoskeletal: No clubbing, No swelling Integumentary: No rashes, No breakdown, No significant lesion Neurological: Normal gait, Normal speech, Normal strength at 5/5 x4 extr, Sensation intact Lymphatics: No axilla or inguinal lymphadenopathy - Studies Medications List Reviewed: Yes Assessment And Plan - Plan Acute Delirium: resolved. Pt is AA0x3. MRI brain is unremarkable. Low threshold to start seroquel. No growth on cultures. Leukocytosis: WBC increased from 9.7 -> 20.2 -> 15.2 -> 8.5. Unknown etiology. Procalcitonin is 7.81. Will continue empiric abx. Pt is not on steroid. No fever. CXR and UA are unremarkable on admission. Will monitor. Acute resp failure with hypoxia: Pt is using 2L BNC. Will continue prn duoneb. CXR is unremarkable. CKD stage 3: cr is 2.19<- 2.26<- 1.99<- 1.92. Will avoid nephrotoxins and monitor renal function. Off iv vanc. Consulted Nephrology Hx of COPD: Stable. Not in exacerbation. Continue prn duoneb. Depression: Continue home med Hx of A. fib: Will continue telemetry, Amiodarone 200 mg po BID, Metoprolol 50 mg po BID and Eliquis 5 mg po BID. Cardiology is considering BEATRIZ cardioversion sunday if A. fib persists. Hx of CAD: Continue plavix and atorvastatin. No aspirin Htn: Continue home med Hypothyroidism: TSH is 10.6 and free T4 is 0.79. Will continue synthroid 112mcg po daily. Fall: Continue fall precaution. Will check vitamin D. Vertigo: Will continue meclizine. Deconditioning: Continue PT. GI ppx: protnix DVT prophylaxis: heparin Discharge Plan: Will dc pt to SNF when medically stable
--- NOTE | 2023-12-22 13:35 | P.PN ---
Subjective Date of Service: 12/22/23 Chief Complaint: Multiple falls Subjective Pt with PMHx of CKD IV , HTN, COPD , CAD S/p and CHF pt was admitted after recurrent falls Physcial Exam General : Awake and alert, NAD nexk Supple, no elevated JVd Heart : RRR, normal S1,2 Chest : rales Abdomen Soft, NT Ext : no edema A/P # HTN glomerulosclerosis CKD4 s Baseline SCr 1.9-2.2 (GFR 23-26) [place] po fluid intake Monitor renal panel # Htn Cont current med regimen # CAD, Chronic afib S/p recent PCI to RCA Per Cardiology # HLD Statin # Acute resp failure Hx of COPD Per other services will resume lasix # Hypothyroidism Synthroid # Deconditioning, mechanical falls PT/OT Physical Examination - Vital Signs Temperature: 97.1 F Blood Pressure: 104/52 Pulse: 44 Respirations: 17 Pulse Ox (%): 96 - Studies Medications List Reviewed: Yes
[2023-12-22] MEDS: SENOSIDES 8.6 MG TAB PO SCH (22:06)
[2023-12-22] MEDS: HYDROCODONE/APAP 5/325 MG TAB PO PRN (23:45)
[2023-12-23 07:30] LABS: Absolute Eosinophils 0.3 K/uL (0-0.5); Absolute Lymphocytes (CBC) 1.3 K/uL (0.7-4.9); Absolute Monocytes 0.8 K/uL (0.1-1.3); Absolute Neutrophil 4.1 K/uL (1.8-8.0); Basophils % 0.8 % (0-1.3); Eosinophils % 4.3 % (0-4.4); Hematocrit 26.8 % (36.0-45.0); Hemoglobin 8.6 g/dL (12.0-15.0); MCH 26.2 pg (27.0-35.0); MCHC 32.1 g/dL (32.0-36.0); MCV 81.8 fL (80-100); MPV 7.8 fL (7.6-11.3); Monocytes % 12.5 % (3.3-12.3); Neutrophils % 62.4 % (41.7-73.7); Platelets 239 thou/uL (152-406); RBC Red Blood Cell Count 3.27 M/uL (3.86-4.86); Red Cell Distribution Width 16.8 % (12.1-15.2)
[2023-12-23 07:43] LABS: Anion Gap 9.8 mEq/L (5.0-15.0); Potassium 4.8 mEq/L (3.5-5.1)
[2023-12-23] MEDS: FUROSEMIDE 40 MG TABLET PO SCH (08:16)
[2023-12-23] MEDS: NA CHLORIDE 0.9% 1,000 ML IV SCH ×2 (10:14→13:32)
--- NOTE | 2023-12-23 10:53 | P.PN ---
Subjective Date of Service: 12/25/23 Chief Complaint: Multiple falls Pt is resting comfortably in bed. She is using 2L BNC. Leukocytosis has improved (6.6). Procalcitonin is elevated (7.81). Will continue empiric abx. Na is 139<- 138<- 132 <- 129. Cardiology is considering BEATRIZ cardioversion if A. fib persists. Pt will need SNF placement given history of visual hallucination. No other complaints. Review of Systems General: Unremarkable Eyes: Unremarkable ENT: Unremarkable Respiratory: SOB with Excertion Cardiovascular: Unremarkable Gastrointestinal: Unremarkable Genitourinary: Unremarkable Musculoskeletal: Unremarkable Integumentary: Unremarkable Neurological: Unremarkable Lymphatics: Unremarkable Physical Examination - Vital Signs Temperature: 97.1 F Blood Pressure: 144/65 Pulse: 55 Respirations: 16 Pulse Ox (%): 91 - Physical Exam General: Alert, In no apparent distress, Oriented x3 HEENT: Atraumatic, Normocephalic, PERRLA Neck: Supple, 2+ carotid pulse no bruit, JVD not distended Respiratory: Clear to auscultation bilaterally, Normal air movement Cardiovascular: No edema, Normal pulses, Regular rate/rhythm, Normal S1 S2 Capillary refill: <2 Seconds Gastrointestinal: Normal bowel sounds, Soft and benign, Non-distended Musculoskeletal: No clubbing, No swelling Integumentary: No rashes, No breakdown, No significant lesion, No tenderness/swelling Neurological: Normal gait, Normal speech, Normal strength at 5/5 x4 extr, Sensation intact Lymphatics: No axilla or inguinal lymphadenopathy - Studies Medications List Reviewed: Yes Assessment And Plan - Plan Acute Delirium: resolved. Pt is AA0x3. MRI brain is unremarkable. Low threshold to start seroquel. No growth on cultures. Leukocytosis: WBC increased from 9.7 -> 20.2 -> 15.2 -> 8.5 -> 6.6. Unknown etiology. Procalcitonin is 7.81. Will continue empiric abx. Pt is not on steroid. No fever. CXR and UA are unremarkable on admission. Will monitor. Acute resp failure with hypoxia: Pt is using 2L BNC. Will continue prn duoneb. CXR is unremarkable. CKD stage 3: cr is 2.46<- 2.19<- 2.26<- 1.99<- 1.92. Will give gentle hydration, avoid nephrotoxins and monitor renal function. Off iv vanc. Consulted Nephrology Hx of COPD: Stable. Not in exacerbation. Continue prn duoneb. Depression: Continue home med Hx of A. fib: Will continue telemetry, Amiodarone 200 mg po BID, Metoprolol 50 mg po BID and Eliquis 5 mg po BID. Cardiology is considering BEATRIZ cardioversion sunday if A. fib persists. Hx of CAD: Continue plavix and atorvastatin. No aspirin Htn: Continue home med Hypothyroidism: TSH is 10.6 and free T4 is 0.79. Will continue synthroid 112mcg po daily. Fall: Continue fall precaution. Will check vitamin D. Vertigo: Will continue meclizine. Deconditioning: Continue PT. GI ppx: protnix DVT prophylaxis: heparin Discharge Plan: Will dc pt to SNF when medically stable
--- NOTE | 2023-12-23 13:20 | P.PN ---
Subjective Date of Service: 12/23/23 Chief Complaint: Multiple falls Subjective: No new changes Review of Systems 10-point ROS is otherwise unremarkable Physical Examination - Vital Signs Temperature: 97.1 F Blood Pressure: 144/65 Pulse: 55 Respirations: 16 Pulse Ox (%): 91 - Physical Exam General: Alert, Oriented x3 HEENT: Atraumatic Neck: Supple Respiratory: Clear to auscultation bilaterally Cardiovascular: No edema, Normal S1 S2 Gastrointestinal: Normal bowel sounds - Studies Medications List Reviewed: Yes Assessment And Plan - Current Problems (Diagnosis) (1) CAD (coronary artery disease) Current Visit: Yes Status: Acute Plan: Patient with recent PCI to RCA, reviewed patient medications and there is no ASA or Plavix in her bag, so not sure about compliance. Stop ASA Continue Plavix 75 mg daily lipitor 40 mg daily. (2) Atrial fibrillation Current Visit: Yes Status: Acute Plan: patient is in sinus rhythm. Amiodarone 200 mg po BID Continue Metoprolol 50 mg po BID start patient on Eliquis 5 mg po BID and stop Aspirin. (3) Hypertension Onset Date: 10/03/17 Current Visit: No Status: Acute Plan: Continue Metoprolol 50 mg po BID Losartan 25 mg daily. (4) Benign hypertension Current Visit: No Status: Chronic
--- NOTE | 2023-12-23 13:32 | P.PN ---
Subjective Date of Service: 12/23/23 Chief Complaint: Multiple falls Subjective Pt with PMHx of CKD IV , HTN, COPD , CAD S/p and CHF pt was admitted after recurrent falls, Cr elevated today Physcial Exam General : Awake and alert, NAD nexk Supple, no elevated JVd Heart : RRR, normal S1,2 Chest : rales Abdomen Soft, NT Ext : no edema A/P # HTN glomerulosclerosis CKD4 s Baseline SCr 1.9-2.2 (GFR 23-26) [place] po fluid intake Monitor renal panel today cr elevated, she was started on losartan yesterday will dc losartan will reduce IVF rate # Htn Cont current med regimen # CAD, Chronic afib S/p recent PCI to RCA Per Cardiology # HLD Statin # Acute resp failure Hx of COPD Per other services Cont lasix # Hypothyroidism Synthroid # Deconditioning, mechanical falls PT/OT Physical Examination - Vital Signs Temperature: 97.1 F Blood Pressure: 144/65 Pulse: 55 Respirations: 16 Pulse Ox (%): 91 - Studies Medications List Reviewed: Yes
[2023-12-24 04:26] LABS: Absolute Basophils 0.1 K/uL (0-0.5); Absolute Eosinophils 0.3 K/uL (0-0.5); Absolute Lymphocytes (CBC) 1.5 K/uL (0.7-4.9); Absolute Monocytes 0.8 K/uL (0.1-1.3); Absolute Neutrophil 4.2 K/uL (1.8-8.0); Basophils % 1.2 % (0-1.3); Eosinophils % 4.1 % (0-4.4); Hematocrit 26.4 % (36.0-45.0); Hemoglobin 8.2 g/dL (12.0-15.0); Lymphocytes % 21.9 % (15.3-44.8); MCH 25.6 pg (27.0-35.0); MCHC 31.1 g/dL (32.0-36.0); MCV 82.4 fL (80-100); MPV 8.4 fL (7.6-11.3); Monocytes % 11.6 % (3.3-12.3); Neutrophils % 61.2 % (41.7-73.7); Platelets 226 thou/uL (152-406); Red Cell Distribution Width 17.1 % (12.1-15.2)
[2023-12-24 04:58] LABS: Anion Gap 10.4 mEq/L (5.0-15.0); Potassium 4.4 mEq/L (3.5-5.1)
--- NOTE | 2023-12-24 09:44 | P.PN ---
Subjective Date of Service: 12/24/23 Chief Complaint: Multiple falls, recent pci of rca Subjective: Improving (no complaints, still weak, willing to work with PT, usually uses walker. Pt states she has been in PT in [place] and didn't mind it there.) <Mariela Juárez - Last Filed: 12/24/23 09:52> Date of Service: 12/25/23 <AdileneMirzaalba Cummins - Last Filed: 12/25/23 22:20> Review of Systems 10-point ROS is otherwise unremarkable Musculoskeletal: As per HPI <Mariela Juárezlen - Last Filed: 12/24/23 09:52> Physical Examination - Vital Signs Temperature: 97.4 F Blood Pressure: 161/75 Pulse: 52 Respirations: 16 Pulse Ox (%): 93 - Physical Exam General: Alert, Oriented x3 HEENT: Atraumatic, Normocephalic Respiratory: Normal air movement Cardiovascular: Normal pulses, Other (pt apparently had a run of VT and was placed on amiodarone) Capillary refill: <2 Seconds Gastrointestinal: Soft and benign Musculoskeletal: No swelling, No contractures, Other (recent left wrist fracture, some thickening appreciated) Integumentary: No rashes Neurological: Normal speech, Normal tone Lymphatics: No axilla or inguinal lymphadenopathy External genitalia: Deferred Rectal: Deferred - Studies Medications List Reviewed: Yes <Mariela Juárez - Last Filed: 12/24/23 09:52> Assessment And Plan - Plan Plan Acute Delirium: resolved. Pt is AA0x3. MRI brain is unremarkable. Low threshold to start seroquel. No growth on cultures. Anemia: Continue to monitor, Hgb dropped to 8.2, will transfuse prn <7.0 Leukocytosis: WBC from 9.7 -> 20.2 -> 15.2 -> 8.5 -> 6.6. Unknown etiology. Procalcitonin is 7.81. Will continue empiric abx. Pt is not on steroid. No fever. CXR and UA are unremarkable on admission. Will monitor. Acute resp failure with hypoxia: Pt is using 2L BNC. Will continue prn duoneb. CXR is unremarkable. CKD stage 3: cr is 2.46<- 2.19<- 2.26<- 1.99<- 1.92 - > 2.12 avoid nephrotoxins and monitor renal function. Consulted Nephrology Hx of COPD: Stable. Not in exacerbation. Continue prn duoneb. Depression: Continue home med Hx of A. fib: Will continue telemetry, Amiodarone 200 mg po BID, Metoprolol 50 mg po BID and Eliquis 5 mg po BID. Cardiology is considering BEATRIZ cardioversion sunday if A. fib persists. 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 Eliquis re-odered, ASA cancelle d Hx of CAD: Continue plavix and atorvastatin. No aspirin Htn: Continue home med Hypothyroidism: TSH is 10.6 and free T4 is 0.79. Will continue synthroid 112mcg po daily. Fall: Continue fall precaution. Vertigo: Will continue meclizine. Deconditioning: Continue PT. GI ppx: protnix DVT prophylaxis: on Eliquis Discharge Plan: Will dc pt to SNF when medically stable [facility]charge Plan: [facility] <Mairela Juárez - Last Filed: 12/24/23 09:52> - Plan Pt seen and examined. I agree with the note by the CHEMICAL OPERATOR.Continue meds as outlined above. PT is waiting for SNF placement. <Marvin Head - Last Filed: 12/25/23 22:20>
[2023-12-24 09:47] VITALS: O2SAT 80
[2023-12-24] MEDS: APIXABAN 2.5 MG TABLET PO SCH (10:00)
--- NOTE | 2023-12-24 10:51 | P.PN ---
Subjective Date of Service: 12/24/23 Chief Complaint: Multiple falls, recent pci of rca Subjective: No new changes (pause overnight for 2.1 seconds, 4 runs of NSVT.) Review of Systems 10-point ROS is otherwise unremarkable Physical Examination - Vital Signs Temperature: 97.4 F Blood Pressure: 161/75 Pulse: 52 Respirations: 16 Pulse Ox (%): 93 - Physical Exam General: Alert, Oriented x3 HEENT: Atraumatic Neck: Supple Respiratory: Clear to auscultation bilaterally Cardiovascular: No edema, Normal S1 S2 Gastrointestinal: Normal bowel sounds - Studies Medications List Reviewed: Yes Assessment And Plan - Current Problems (Diagnosis) (1) CAD (coronary artery disease) Current Visit: Yes Status: Acute Plan: Patient with recent PCI to RCA, reviewed patient medications and there is no ASA or Plavix in her bag, so not sure about compliance. Stop ASA Continue Plavix 75 mg daily lipitor 40 mg daily. (2) Atrial fibrillation Current Visit: Yes Status: Acute Plan: patient is in sinus rhythm. Lower amiodarone to 100 mg po BID and monitor Lower Metoprolol to 25 mg po BID Eliquis 5 mg po BID and stop Aspirin. (3) Hypertension Onset Date: 10/03/17 Current Visit: No Status: Acute Plan: Lower Metoprolol to 25 mg po BID Increase Losartan to 50 mg daily. (4) Benign hypertension Current Visit: No Status: Chronic
[2023-12-24 15:28] LABS: SARS-CoV-2 Antigen CONTROL BLUE LINE VIS/BG OK; SARS-CoV-2 Antigen Rapid Res Negative (Negative)
--- NOTE | 2023-12-24 16:16 | P.DS ---
Admission Date: 12/15/23 Discharge Date: 12/24/23 Disposition: TRANSFER TO RESIDENTIAL Discharge Condition: GOOD Reason for Admission: Multiple falls, recent pci of rca Brief History of Present Illness: Patient is an 83-year-old female who comes into the hospital with multiple falls. Patient has been falling quite a bit. Patient was recently in the emergency room for similar issues. Patient states she falls quite a bit. She b roke her wrist last Thanksgi. She is suffered a fibular injury. She is also hurt her left shoulder. She has broken 2 ribs. Her son stays at home with her, but he is not always there with her. She also has a longstanding history of diverticulosis with secondary diarrhea. Since she had recurrent admission yesterday the plan is to admit her to the hospital for observation. Will start her on IV fluids and check a UA with microscopy. Will monitor her electrolytes. Will get physical therapy evaluation. If patient does well then anticipate discharge over the next 24 to 48 hours Hospital Course: Pt is an 83yo female with past medical history of COPD, Htn, hypothyroidism, A. fib and CKD who presented with s/p multiple falls. Pt has had multiple ER visits due to multiple falls with multiple fractures. We admitted pt and continued fall precaution. She had acute delirium that later resolved. MRI brain was unremarkable. Urinalysis was unremarkable. Pt later developed SOB due to acute resp failure with hypoxia. We continue prn duoneb and oxygen. Pt also had runs of v-tach and cardiology started amiodarone. We optimized cardiac meds prior to discharge. She developed leukocytosis of unknown origin. CXR and Urinalysis were unremarkable. We gave iv vanc and rocephin. The leukocytosis resolved and pt did well with physical therapy. We avoided nephrotoxins and monitored renal function. We continued home med for other chronic medical problems. Pt was in NAD prior to discharge to SNF. Vital Signs/Physical Exam: Temp Pulse Resp BP Pulse Ox 97.4 F 52 16 161/75 H 93 12/24/23 10:51 12/24/23 10:51 12/24/23 10:51 12/24/23 10:51 12/24/23 10:51 Laboratory Data at Discharge: WBC 6.90 thou/uL (4.3-10.9) 12/24/23 03:04 Hgb 8.2 g/dL (12.0-15.0) L 12/24/23 03:04 Hct 26.4 % (36.0-45.0) L 12/24/23 03:04 Plt Count 226 thou/uL (152-406) 12/24/23 03:04 Sodium 139 mEq/L (136-145) 12/24/23 03:04 Potassium 4.4 mEq/L (3.5-5.1) 12/24/23 03:04 BUN 48 mg/dL (7-18) H 12/24/23 03:04 Creatinine 2.12 mg/dL (0.55-1.02) H 12/24/23 03:04 Glucose 136 mg/dL (74-106) H 12/24/23 03:04 Phosphorus 3.3 mg/dL (2.5-4.9) 12/16/23 05:45 Magnesium 2.2 mg/dL (1.6-2.4) 12/20/23 00:31 Total Bilirubin 0.6 mg/dL (0.2-1.0) 12/17/23 06:12 AST 30 U/L (15-37) 12/17/23 06:12 ALT 19 U/L (13-56) 12/17/23 06:12 Alkaline Phosphatase 96 U/L (45-117) 12/17/23 06:12 Triglycerides 84 mg/dL (<150) 12/15/23 06:31 Cholesterol 147 mg/dL (<200) 12/15/23 06:31 HDL Cholesterol 73 mg/dL (40-60) H 12/15/23 06:31 Cholesterol/HDL Ratio 2.01 12/15/23 06:31 Home Medications: Escitalopram Oxalate [Lexapro] 20 mg PO BID 11/19/11 Levothyroxine [Synthroid*] 0.125 mg PO DAILY 11/19/11 Lovastatin 20 mg PO DAILY 04/13/23 buPROPion HCL [Bupropion HCl Sr] 150 mg PO BID 06/21/23 Ropinirole HCl 4 mg PO BID 07/31/23 Furosemide [Lasix] 160 mg PO DAILY 12/14/23 Levothyroxine [Synthroid*] 0.112 mg PO DAILY 12/14/23 Oxybutynin Chloride [Oxybutynin Chloride ER] 15 mg PO DAILY 12/14/23 allopurinoL [Allopurinol] 100 mg PO DAILY 12/14/23 cloNIDine HCL [Clonidine HCl] 0.1 mg PO PRN 12/14/23 Amiodarone HCl [Cordarone*] 100 mg PO BID 30 Days #60 tab 12/24/23 Apixaban [Eliquis *] 2.5 mg PO BID 30 Days #60 tab 12/24/23 Cefdinir [Cefdinir*] 300 mg PO DAILY 4 Days #4 cap 12/24/23 Clopidogrel Bisulfate [Plavix*] 75 mg PO DAILY 60 Days #60 tab 12/24/23 Furosemide [Lasix*] 40 mg PO DAILY tab 12/24/23 Losartan Potassium [Cozaar*] 50 mg PO DAILY 60 Days #60 tab 12/24/23 Metoprolol Tartrate [Lopressor*] 25 mg PO BID 6AM 6PM 30 Days #60 tab 12/24/23 New Medications: Cefdinir [Cefdinir*] 300 mg PO DAILY 4 Days #4 cap Amiodarone HCl [Cordarone*] 100 mg PO BID 30 Days #60 tab Losartan Potassium [Cozaar*] 50 mg PO DAILY 60 Days #60 tab Apixaban [Eliquis *] 2.5 mg PO BID 30 Days #60 tab Metoprolol Tartrate [Lopressor*] 25 mg PO BID 6AM 6PM 30 Days #60 tab Clopidogrel Bisulfate [Plavix*] 75 mg PO DAILY 60 Days #60 tab Physician Discharge Instructions: Continue ad ila activity. Take home meds as prescribed. Follow up with PCP within 2 weeks. Diet: AHA Activity: Ad ila Followup: Villa Mann MD [Primary Care Provider] -
[2023-12-24] MEDS ORDERED: METOPROLOL TAR 25 MG TAB PO SCH (18:00)
--- NOTE | 2023-12-24 20:57 | PN ---
Date of Progress Note: 12/24/2023 Chief Complaint: Chronic kidney disease stage 4, hypertension, coronary artery disease, history of c ongestive heart failure. History Of Present Illness: The patient is admitted to the hospital because of recurrent falls. She was found to have elevated troponin. She recently had a PCI to RCA and she has been seen by cardiol ogist. Review of Systems: Denies chest pain, palpitations. Physical Examination: Lungs: Few rhonchi. Heart: S1, S2. Abdomen: Soft. Extremities: No edema. 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 The patient has chronic kidney disease stage 4. Baseline creatinine level was ranging from 1.9 to 2.2. GFR from 23 to 26. Continue p.o. fluid int grisel for adequate hydration and avoid nonsteroidal anti-inflammatory medication. Losartan is currentl y stopped due to elevated serum-creatinine ratio hypertension. Continue current medicatio n. 2.Coronary artery disease, chronic Afib, status post PCI to RCA. Follow up with Cardiology. 3.Hyperlipidemia, on statin. The patient does not have a myalgia, less likely patient has rhabdomyo lysis. Continue to monitor. 4.Acute respiratory failure, history of chronic obstructive pulmonary disease. Continue Lasix. 5.Deconditioning. PT, OT by primary team. IOANA/DAPHNEY Voice ID: [id number] Report ID: [id number]
[2023-12-24] MEDS ORDERED: AMIODARONE HCL 200 MG TAB PO SCH (21:00)
[2023-12-24] MEDS ORDERED: APIXABAN 2.5 MG TABLET PO SCH ×2 (21:00)
[2023-12-25] MEDS ORDERED: LOSARTAN POTASSIUM 50 MG TABLET PO SCH (09:00)
[2023-12-25] MEDS ORDERED: CEFDINIR 300 MG CAP PO SCH (09:00)
[2023-12-25 22:53] VITALS: BP 144/65; TEMP 97.1
== END 2023-12-24 17:59 | DRG 91 ==
LOC: ER 11:33 → ERHOLD 14:07 → 2ND 14:56 → OBSVTOIN 12-15 14:46
PROVIDERS: ADMIT Hospitalist; ATTEND Hospitalist
PROC: 4A033R1 Measurement of Arterial Saturation, Peripheral, Percutaneous Approach (ICD-10-PCS; principal; 2023-12-19)
DX: G93.1 Anoxic brain damage, not elsewhere classified (principal); J96.01 Acute respiratory failure with hypoxia; I50.32 Chronic diastolic (congestive) heart failure; I13.0 Hypertensive heart and chronic kidney disease with heart failure and stage 1 through stage 4 chronic kidney disease, or unspecified chronic kidney disease; F05 Delirium due to known physiological condition; N18.4 Chronic kidney disease, stage 4 (severe); I48.20 Chronic atrial fibrillation, unspecified; I47.10 Supraventricular tachycardia, unspecified; D63.1 Anemia in chronic kidney disease; E78.5 Hyperlipidemia, unspecified; E03.9 Hypothyroidism, unspecified; E87.6 Hypokalemia; G25.81 Restless legs syndrome; F32.A Depression, unspecified; J43.9 Emphysema, unspecified; K21.9 Gastro-esophageal reflux disease without esophagitis; D72.829 Elevated white blood cell count, unspecified; I25.10 Atherosclerotic heart disease of native coronary artery without angina pectoris; R42 Dizziness and giddiness; R29.6 Repeated falls; R44.1 Visual hallucinations; R79.89 Other specified abnormal findings of blood chemistry; Z91.81 History of falling; Z88.8 Allergy status to other drugs, medicaments and biological substances; Z90.49 Acquired absence of other specified parts of digestive tract; Z11.52 Encounter for screening for COVID-19; Z79.02 Long term (current) use of antithrombotics/antiplatelets; Z98.84 Bariatric surgery status; Z86.73 Personal history of transient ischemic attack (TIA), and cerebral infarction without residual deficits; Z96.653 Presence of artificial knee joint, bilateral; Z96.619 Presence of unspecified artificial shoulder joint; Z91.048 Other nonmedicinal substance allergy status; Z79.890 Hormone replacement therapy; Z79.899 Other long term (current) drug therapy; Z96.612 Presence of left artificial shoulder joint; Z90.711 Acquired absence of uterus with remaining cervical stump; Z87.891 Personal history of nicotine dependence
CPT/HCPCS: 36415; 36600; 51702; 70450; 70551; 71045; 80048; 80053; 80061; 80076; 80202; 81001; 82533; 82570; 82805; 82947; 83735; 83880; 83935; 84100; 84132; 84145; 84156; 84300; 84439; 84443; 84484; 85025; 87811; 93005; 93306; 93971; 97110; 97116; 97161; 97530; 99285; G0378; J0360; J0696; J1720; J2270; J2405; J3475; J7030; J7050